=== PATIENT | female | born 1975 | race Caucasian/White ===

== ENCOUNTER → 2017-06-14 | Emergency (ER) | payer OTHER ==
[~2017-06-14] VITALS: Ht 152.4 cm; Wt 173.7 kg
[~2017-06-14] MED LIST: ACID REDUCER75 MG PO; ADIPEX-P37.5 MG PO; ALPRAZOLAM ER1 MG PO; ANAPROX DS550 MG PO; ARMOUR THYROID30 MG PO; ASPIR 8181 MG PO; BACTRIM DS TAB1 EACH PO; BELVIQ10 MG PO; CEFUROXIME500 MG PO; CEPACOL SORE T1 EAC5 MM; CEPHALEXIN500 MG PO; CIPRO500 MG PO; CITRACAL + BON1 EACH PO; CLARITIN-D 241 EACH PO; CLINDAMYCIN HC300 MG PO; COUMADIN10 MG PO; DIGOXIN125 MCG PO; DIGOXIN250 MCG PO; DOXYCYCLINE HY100 MG PO; DOXYCYCLINE MO100 MG PO; FENTANYL1 EACH TD; FERROUS SULFAT325 MG PO; FLAGYL500 MG PO; FLEXERIL10 MG PO; FLUOXETINE HCL20 MG PO; HUMULIN 70100 UNIT/1 SQ; HYDROCODON-ACE1 EAC8 PO; IBUPROFEN600 MG PO; IRON325 M1 PO; KEFLEX500 MG PO; KLOR-CON M2020 MEQ PO; LEVAQUIN500 MG PO; LEVAQUIN750 MG PO; LEVEMIR100 UNIT/1 SUB-Q; LOMOTIL TABLET1 EACH PO; LORTAB 7.5-3251 EACH PO; LOVENOX100 MG SUB-Q; MAG-OXIDE400 MG PO; MAGNESIUM400 MG PO; MAGNESIUM500 MG PO; MEDROL4 M1 PO; MELOXICAM15 MG PO; METFORMIN HCL1000 MG PO; METOLAZONE2.5 MG PO; METOPROLOL SUCC50 MG PO; MS CONTIN15 MG PO; NEURONTIN300 MG PO; NEXPLANON68 MG SUB-Q; NORCO 5-325 TA1 EACH PO; NOVOLOG100 UNITS/ SUB-Q; NYSTOP60 GM TOP; OLANZAPINE15 MG PO; OXYCODONE HCL10 MG PO; OXYCODONE-ACET1 EAC3 PO; PIROXICAM20 MG PO; POTASSIUM CHLO10 MEQ PO; POTASSIUM CHLO20 ME1 PO; POTASSIUM99 M1 PO; POTASSIUM99 MG PO; PROBIOTIC1 EAC1 PO; PROMETHAZINE HC25 M1 PO; PROZAC40 MG PO; RANITIDINE HCL150 MG PO; RELPAX20 MG PO; ROBAFEN-DM SYR118 ML PO; SENNA S TABLET1 EA PO; SEPTRA DS TABL1 EACH PO; SPIRONOLACTONE50 MG PO; STOOL SOFTENER50 MG PO; SUDAFED 12 HOU120 MG PO; TOPAMAX200 MG PO; TORSEMIDE100 MG PO; TORSEMIDE20 MG PO; TRAZODONE HCL150 MG PO; TRESIBA FL100 UNIT/1 SQ; VIT B COMPLEX; VITAMIN C500 M1 PO; VITAMIN D250000 UNIT PO; WARFARIN SODIUM5 MG PO; WARFARIN SODIUM6 MG PO; XANAX XR1 MG PO; XANAX1 MG PO; ZANTAC150 MG PO; ZOFRAN ODT4 MG PO; ZOFRAN ODT8 MG PO; ZYPREXA15 MG PO; ZYPREXA20 MG PO; ZYRTEC10 MG PO; [UNRECOGNIZED DRUG - OTHER] PO; [UNRECOGNIZED DRUG - REMARK] PO
== END ==
LOC: ED 19:31
DX: K46.9 Unspecified abdominal hernia without obstruction or gangrene (principal); G89.29 Other chronic pain; E11.9 Type 2 diabetes mellitus without complications; Z86.73 Personal history of transient ischemic attack (TIA), and cerebral infarction without residual deficits; Z90.49 Acquired absence of other specified parts of digestive tract; Z87.440 Personal history of urinary (tract) infections; Z88.0 Allergy status to penicillin; Z88.1 Allergy status to other antibiotic agents; Z79.4 Long term (current) use of insulin; Z79.82 Long term (current) use of aspirin
CPT/HCPCS: 74177; 80053; 83690; 84703; 85025; 96374; 96375; 99284; J1170; J1885; J2405; J7030; Q9967

== ENCOUNTER 2017-11-23 21:13 | Emergency (ER) | payer OTHER ==
[~2017-11-23] VITALS: Ht 152.4 cm; Wt 178.7 kg
[2017-11-23] MEDS ORDERED: ATENOLOL50 MG PO (21:35)
--- OUTSIDE RECORDS SUMMARY | 2017-11-23 23:14 | XMS | Encounter Summary ---
Demographics + + + | Address | [address] | | | [place] [address] | + + + | Home Phone | | + + + | Preferred Language | Unknown | + + + | Marital Status | Single | + + + | Caodaism Affiliation | PRO | + + + | Race | White | + + + | Ethnic Group | Not or | + + + Author + + + | Author | [facility] | + + + | Organization | [facility] | + + + | Address | Unknown | + + + | Phone | Unavailable | + + + Support + + + + + | Name | Relationship | Address | Phone | + + + + + | KENNY BERRY | ECON | [address] | | | | | [place], | | | | | [place] [address] | | + + + + + | Ellie Vang | ECON | Unknown | | + + + + + Care Team Providers + +------+ + | Care Manager Management Name | Role | Phone | + +------+ + PCP | Unavailable | + +------+ + Encounter Details +--------+ + + + + | Date | Type | Department | Care Team | Description | +--------+ + + + + | 12/07/ | Procedure | [facility] | | | | 2018 | Pass | [facility] | | | | | | Admitting Desk | | | | | | Located on the 9 | | | | | | floor [address] [facility] | | | | | | [facility] | | | | | | [place], [place] | | | | | | [address] | | | +--------+ + + + + Social History + +-------+ +--------+------+ | Tobacco Use | Types | Packs/Day | Years | Date | | | | | Used | | + +-------+ +--------+------+ | Former Smoker | | | | | + +-------+ +--------+------+ + +---+---+---+ | Smokeless Tobacco: | | | | | Never Used | | | | + +---+---+---+ + + +---------+ + | Alcohol Use | Drinks/We | oz/Week | Comments | | | ek | | | + + +---------+ + | No | | 0.0 | | + + +---------+ + + + + | Sex Assigned at | Date Recorded | | | | + + + | Not on file | | + + + as of this encounter Plan of Treatment +--------+ + + + + | Date | Type | Specialty | Care Team | Description | +--------+ + + + + | 12/07/ | Procedure | Surgery | | | | 2018 | Pass | | | | +--------+ + + + + | 06/04/ | Office | Cardiology | Randell Franks, | | | 2018 | Visit | | [address] | | | | | | [address] | | | | | | [place], [place] | | | | | | [address] | | | | | | [phone] | | | | | | | | +--------+ + + + + as of this encounter Visit Diagnoses Not on filein this encounter"
--- OUTSIDE RECORDS SUMMARY | 2017-11-23 23:14 | XMS | Encounter Summary ---
Demographics + + + | Address | [address] | | | [place] [address] | + + + | Home Phone | | + + + | Preferred Language | Unknown | + + + | Marital Status | Single | + + + | Islam Affiliation | PRO | + + + | Race | White | + + + | Ethnic Group | Not or | + + + Author + + + | Author | [facility] | + + + | Organization | [facility] | + + + | Address | Unknown | + + + | Phone | Unavailable | + + + Support + + + + + | Name | Relationship | Address | Phone | + + + + + | KENNY BERRY | ECON | [address] | | | | | [place], | | | | | [place] [address] | | + + + + + | Ellie Vang | ECON | Unknown | | + + + + + Care Team Providers + +------+ + | Care Grey Washer Name | Role | Phone | + +------+ + | Fadi Goodrich DO | PCP | | + +------+ + Encounter Details +--------+------+ + + + | Date | Type | Department | Care Team | Description | +--------+------+ + + + | 11/20/ | Lab | Laboratory at [facility] | | Morbid obesity with | | 2017 | | 3rd Floor [address] | | BMI of 70 and over, | | | | [address] [place], | | adult ([facility]); | | | | [place] [address] | | 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[phone] | | 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 ([facility]); | | | | | | Type 2 diabetes | | | | | | mellitus without | | | | | | complication, with | | | | | | long-term current | | | | | | use of insulin ([facility]) | +--------+------+ + + + Social History + +-------+ [...] | | | | | | [address] | | | | | | [place], [place] | | | | | | [address] | | | | | | [phone] | | | | | | | | +--------+ + + + + + +--------+ + + | Name | Priori | Associated Diagnoses | Date/Time | | | ty | | | + +--------+ + + | VITAMIN B1, WHOLE BLOOD | Routin | Morbid obesity | 11/20/2017 10:01 AM | | | e | with BMI of 70 and | PDT | | | | over, adult (HCC) | | | | | 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| 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) | | + +--------+ + + as of this encounter Results CBC (HEMOGRAM) ONLY (11/20/2017 10:01 AM) + + + + | Component | Value | Ref Range | + + + + | WHITE CELL COUNT | 13.84 (H) | 3.50 - 10.80 K/cu mm | + + + + | RED CELL COUNT | 4.91 | 4.00 - 5.20 M/cu mm | + + + + | HEMOGLOBIN | 13.2 | 12.0 - 16.0 g/dL | + + + + | HEMATOCRIT | 42.1 | 36.0 - 46.0 % | + + + + | MCV | 85.7 | 80.0 - 96.0 fL | + + + + | MCHC | 31.4 | 33.0 - 35.5 g/dL | + + + + | RDW SD | 50.8 (H) | 35.1 - 46.3 fL | + + + + | PLATELET COUNT | 242 | 150 - 400 K/cu mm | + + + + | MPV | 9.8 | 9.7 - 12.3 fL | + + + + + + + | Specimen | Performing Laboratory | + + + | Blood | [facility], [facility] [address] | | | [place] [address] | + + + LIPID LAB - LIPID PROFILE - PLASMA LIPIDS, HDL AND LDL (11/20/2017 10:01 AM) + +---------+ + | Component | Value | Ref Range | + +---------+ + | TOTAL CHOLESTEROL - | 143 | <200 mg/dl | | LIPID LAB | | | + +---------+ + | VLDL CHOLESTEROL, | 37 (H) | <=31 mg/dl | | CALCULATED - LIPID | | | | LAB | | | + +---------+ + | LDL, CHOLESTEROL - | 68 | <100 mg/dl | | LIPID LAB | | | + +---------+ + | HDL, CHOLESTEROL - | 38 (L) | >50 mg/dl | | LIPID LAB | | | + +---------+ + | TOTAL TRIGLYCERIDE - | 184 (H) | <150 mg/dl | | LIPID LAB | | | + +---------+ + | NON-HDL CHOLESTEROL | 105 | <=130 mg/dL | | (LIPID LAB) | | | + +---------+ + + + + | Specimen | Performing Laboratory | + + + | Blood | [facility], LIPID [id number] [facility] | | | [place] [address] | + + + HEMOGLOBIN A1C, BLOOD (11/20/2017 10:01 AM) + + + + | Component | Value | Ref Range | + + + + | HEMOGLOBIN A1C | 7.7 (H)Comment: Hgb A1C Interpretive | <5.7 % | | | Information: <5.7% - Normal | | | | 5.7-6.4% - Consistent with | | | | pre-diabetes >6.4% - Consistent | | | | with diabetes | | | | 5.7-6.4% - Consistent with pre-diabetes | | | | >6.4% - Consistent with diabetes | | | | | | | | | | + + + + + + + | Specimen | Performing Laboratory | + + + | Blood | [facility], [facility] + [facility] [address] [facility] | | | [place] [address] | + + + + + | Narrative | + + | Alternate forms of testing such as fructosamine should be considered for | | monitoring remote computer terminal operator glycemic control in patients with: Increased red cell turnover, | | certain hemoglobinopathies (e.g., HbS, HbE, HbC and thalassemia syndromes), anemias, | | blood loss, chronic liver disease and hemochromatosis (artefactually low HbA1c); iron | | deficiency anemia (artefactually high HbA1c due to enhanced glycation of hemoglobin). | | | + + COMPLETE METABOLIC SET (NA,K,CL,CO2,BUN,CREAT,GLUC,CA,AST,ALT,BILI TOTAL,ALK PHOS,ALB,PROT TOTAL) (11/20/2017 10:01 AM) + +---------+ + | Component | Value | Ref Range | + +---------+ + | GLUCOSE, PLASMA | 144 (H) | 70 - 99 mg/dL | | (LAB) | | | + +---------+ + | BUN, PLASMA (LAB) | 13 | 6 - 20 mg/dL | + +---------+ + | CREATININE PLASMA | 0.92 | 0.60 - 1.10 mg/dL | | (LAB) | | | + +---------+ + | EGFR - | >60 | >60 mL/min | | PALESTINIAN | | | + +---------+ + | EGFR NON | >60 | >60 mL/min | | -PALESTINIAN | | | + +---------+ + | SODIUM, PLASMA (LAB) | 138 | 136 - 145 mmol/L | + +---------+ + | POTASSIUM, PLASMA | 4.2 | 3.4 - 5.0 mmol/L | | (LAB) | | | + +---------+ + | CHLORIDE, PLASMA | 108 | 97 - 108 mmol/L | | (LAB) | | | + +---------+ + | TOTAL CO2, PLASMA | 20 (L) | 21 - 32 mmol/L | | (LAB) | | | + +---------+ + | CALCIUM, PLASMA | 9.4 | 8.6 - 10.2 mg/dL | | (LAB) | | | + +---------+ + | CALCIUM(ALB | 10.1 | 8.6 - 10.2 mg/dL | | CORRECTED) | | | + +---------+ + | BILIRUBIN TOTAL | 0.4 | 0.3 - 1.2 mg/dL | + +---------+ + | TOTAL PROTEIN, | 8.1 | 6.4 - 8.2 g/dL | | PLASMA (LAB) | | | + +---------+ + | ALBUMIN, PLASMA | 3.1 (L) | 3.5 - 4.7 g/dL | | (LAB) | | | + +---------+ + | ALK PHOS | 122 (H) | 42 - 98 U/L | + +---------+ + | AST(SGOT) | 21 | <=41 U/L | + +---------+ + | ALT (SGPT) | 29 | <=60 U/L | + +---------+ + | ANION GAP | 10 | 4 - 11 mmol/L | + +---------+ + | ANION GAP(ALB | 12 (H) | 4 - 11 mmol/L | | CORRECTED) | | | + +---------+ + | POTASSIUM CMNT | No Hemo | | + +---------+ + | BILI T CMNT | No Hemo | | + +---------+ + | AST CMNT | No Hemo | | + +---------+ + + + + | Specimen | Performing Laboratory | + + + | Blood | [facility] [address] | | | [place] [address] | + + + + + | Narrative | + + | GFR is estimated using the MDRD equation recommended by the National Kidney Disease | | Education Program. Estimated GFR Interpretive Information: <60 mL/min/1.73 sq | | m Chronic Kidney Disease <15 mL/min/1.73 sq | | m Kidney Failure Estimated GFR greater that 60 mL/min/1.73 | | sq m is of limited clinical value. The MDRD equation is not valid in the following | | situations: - Patients under 18 years of age - Severe malnutrition or obesity - | | Vegetarian diet - Rapidly changing kidney function - Amputees, paraplegics, or other | | muscle-wasting diseses | + + CBC ONLY (11/20/2017 10:01 AM) + + + | Specimen | Performing Laboratory | + + + | Blood | | + + + + + | Narrative | + + | The following orders were created for panel order CBC ONLY. | | Procedure | | Abnormality Status | | --------- | | ------ CBC (HEMOGRAM) | | ONLY[[id number]] Abnormal Final | | result Please view results for these tests on the | | individual orders. | + + IRON AND TIBC (11/20/2017 10:01 AM) + +--------+ + | Component | Value | Ref Range | + +--------+ + | IRON | 46 | 30 - 160 ug/dL | + +--------+ + | IRON BIND CAP | 334 | 240 - 450 ug/dL | + +--------+ + | % SATURATION | 14 (L) | 20 - 50 % | | TRANSFERRIN, | | | + +--------+ + + + + | Specimen | Performing Laboratory | + + + | Blood | [facility], [place] [address] [place] [address] RD | | | [place] [address] | + + + VITAMIN B-12 (11/20/2017 10:01 AM) + +-------+ + | Component | Value | Ref Range | + +-------+ + | VITAMIN B12 | 686 | 193 - 986 pg/mL | + +-------+ + | COMMENT (HEMO) | 4 | | + +-------+ + | COMMENT (ICTERUS) | 1 | | + +-------+ + | COMMENT (LIPEMIA) | 1 | | + +-------+ + + + + | Specimen | Performing Laboratory | + + + | Blood | [facility], [place] [address] | | | [place] [address] | + + + FERRITIN (11/20/2017 10:01 AM) + + + + | Component | Value | Ref Range | + + + + | FERRITIN | 23 (L)Comment: Male and Female >18 years: | 50 - 200 ng/mL | | | <20 ng/mL: Consistant with | | | | iron deficiency 21-50 ng/mL: | | | | Possible iron deficiency 51-99 | | | | ng/mL: Iron deficiency unlikely | | | | unless inflammation present | | | | or p | | | | atient >65 years of age 100-200 | | | | ng/mL: Normal, not consistent with | | | | iron deficiency >200 ng/mL: | | | | If transferrin saturation >45%, consider | | | | hemochromatosis | | + + + + + + + | Specimen | Performing Laboratory | + + + | Blood | [facility], [place] [address] [place] [address] | | | [place] [address] | + + + PTH, SERUM (11/20/2017 10:01 AM) + +-------+ + | Component | Value | Ref Range | + +-------+ + | PTH, SERUM | 88 | 18 - 88 pg/mL | + +-------+ + + + + | Specimen | Performing Laboratory | + + + | Blood | [facility], [place] [address] [facility] [address] | | | [place] [address] | + + + + + | Narrative | + + | New Reference Range effective 17. | + + VITAMIN D, 25-HYDROXY, SERUM (11/20/2017 10:01 AM) + +-------+ + | Component | Value | Ref Range | + +-------+ + | VITAMIN D 25 HYDROXY | 75.2 | 30 - 80 ng/mL | + +-------+ + + + + | Specimen | Performing Laboratory | + + + | Blood | [facility], [place] [address] [place] [address] | | | [place] [address] | + + + + + | Narrative | + + | Reference Interval: 0-18years: Deficiency: <20 ng/mL | | Optimum level: >or=20 | | ng/mL >18years: | | Deficiency: <20 ng/mL | | Insufficiency: 20-29 ng/mL Optimum Level: 30-80 ng/mL | | High: 81-150 ng/ml | | Toxic: >150 ng/mL | + + in this encounter Visit Diagnoses + + | Diagnosis | + + | Morbid obesity with BMI of 70 and over, adult (HCC) | + + | Diabetes mellitus type 2 without retinopathy (HCC) | + + | Type II or unspecified type diabetes mellitus without mention of complication, not | | stated as uncontrolled | + + | Type 2 diabetes mellitus without complication, with long-term current use of insulin | | (HCC) | + +"
--- OUTSIDE RECORDS SUMMARY | 2017-11-23 23:14 | XMS | Encounter Summary ---
Demographics + + + | Address | [address] | | | [place] [address] | + + + | Home Phone | | + + + | Preferred Language | Unknown | + + + | Marital Status | Single | + + + | Baptism Affiliation | PRO | + + + | Race | White | + + + | Ethnic Group | Not or | + + + Author + + + | Author | [facility] | + + + | Organization | [facility] | + + + | Address | Unknown | + + + | Phone | Unavailable | + + + Support + + + + + | Name | Relationship | Address | Phone | + + + + + | KENNY BERRY | ECON | [address] | | | | | [place], | | | | | [place] [address] | | + + + + + | Ellie Vang | ECON | Unknown | | + + + + + Care Team Providers + +------+ + | Care Manager Billing Name | Role | Phone | + +------+ + | Fadi Goodrich DO | PCP | | + +------+ + Reason for Referral Consult to [place] (Routine) +--------+--------+ + + + + | Status | Reason | Specialty | Diagnoses / | Referred By | Referred To | | | | | Procedures | Contact | Contact | +--------+--------+ + + + + | Open | | Surgery | Diagnoses | Dannie | Dannie, | | | | | Morbid | Ion Colvin MD | Ion Colvin MD | | | | | obesity with | [address] | | | | | BMI of [address] | [address] | Ave | | | | | and over, | [place], [place] | [facility] [place] | | | | | adult (HCC) | [address] | [address] | | | | | Diabetes | Phone: | Phone: | | | | | mellitus | | | | | | | type 2 | Fax: | Fax: | | | | | without | [phone] | [phone] | | |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 | | | | | | | (HCC) AMARA | | | | | | | treated with | | | | | | | BiPAP PCOS | | | | | | | (polycystic | | | | | | | ovarian | | | | | | | syndrome) | | | | | | | Procedures | | | | | | | SURGICAL | | | | | | | CASE REQUEST | | | +--------+--------+ + + + + Reason for Visit + + + | Reason | Comments | + + + | New patient | | | consultation | | + + + Office Visit - E/M Services (Routine) + + + + + + + | Status | Reason | Specialty | Diagnoses / | Referred By | Referred To | | | | | Procedures | Contact | Contact | + + + + + + + | Authorized | BAR: | Surgery | Diagnoses | Tiny | Bar | | | Scheduled | | Essential | MD Rnadell | Bariatric | | | with OPTICAL GLASS INSPECTOR | | hypertension | [address] | [address]urg Ch | | | | | Right | Herminio Ryan | [address] | | | | | heart | [address] | Ave | | | | | failure | [place], [place] | Mailcode: | | | | | Type 2 | [address] | [address] | | | | | diabetes | Phone: | for Health | | | | | mellitus | [phone] | and Healing, | | | | | without | Fax: | 6th floor | | | | | complication | [phone] | [place], [place] | | | | | , with | | [address] | | | | | long-term | | Phone: | | | | | current use | | [phone] | | | | | of insulin | | Fax: | | | | | ([facility]) | | [phone] | | | | | Procedures | | | | | | | CONSULT TO | | | | | | | BARIATRIC | | | | | | | SURGERY | | | + + + + + + + Encounter Details +--------+---------+ + + + | Date | Type | Department | Care Team | Description | +--------+---------+ + + + | 10/30/ | Office | Digestive Health | Ion Castanon, | 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 | Visit | Center at [facility] 6th | MD [address] | BMI of 70 and over, | | | | Floor [address] | [place], [place] | adult ([facility]) (Primary | | | | Ave Mailcode: [facility] | [address] | Dx); Diabetes | | | | [facility] | | mellitus type 2 | | | | and Healing, 6th | | without retinopathy | | | | floor [place], [place] | | ([facility]); | | | | [address] | | Intertriginous | | | | | | candidiasis; PCOS | | | | | | (polycystic ovarian | | | | | | syndrome); AMARA | | | | | | treated with BiPAP; | | | | | | Chronic diastolic | | | | | | heart failure ([facility]); | | | | | | Essential | | | | | | hypertension | +--------+---------+ + + + Social History + +-------+ [...] + + + as of this encounter Last Filed Vital Signs + + + + | Vital Sign | Reading | Time Taken | + + + + | Blood Pressure | 150/90 | 10/30/2017 10:15 AM PDT | + + + + | Pulse | 80 | 10/30/2017 10:15 AM PDT | + + + + | Temperature | 36.6 C (97.9 F) | 10/30/2017 10:15 AM PDT | + + + + | Respiratory Rate | 16 | 10/30/2017 10:15 AM PDT | + + + + | Oxygen Saturation | - | - | + + + + | Inhaled Oxygen | - | - | | Concentration | | | + + + + | Weight | 178.9 kg (394 lb 6.4 | 10/30/2017 10:15 AM PDT | | | oz) | | + + + + | Height | 149.9 cm (4' 11") | 10/30/2017 10:15 AM PDT | + + + + | Body Mass Index | 79.66 | 10/30/2017 10:15 AM PDT | + + + + in this encounter Instructions Patient Instructions - Ion Castanon MD - 10/30/2017 10:00 AM PDTPlease visit with our Raza heard Apprentice Embalmer (RD) for instructions about your Bariatric diet, assistance with calorie counts, tips and tricks for working with your diet restrictions, and recipes after bariatri c surgery. Daily yogurt; even just 1 tablespoon twice a day will provide enough probiotics to optimize digestion. Try to use a high-quality, probiotic-dense yogurt (eg Zaria's, Leonides, Stacie hendricksclaus Kefir, Foreign Banknote Teller Trader Duke's Mosotho Yogurt). Remember to chew your food well, eat small bites, and work on eating slowly. Avoid drinkin g fluid within 20 min before or after meals. Try to exercise at least 30 min four times each week. Try to add some strength training a nd resistance work, in addition to cardio exercise. Water exercises can be very useful if y ou have joint pain/back pain or other limitations. Check with your local gyms and [employer] /community centers for classes. Our psychologist is available to see you after surgery, if you are feeling stressors or nee d emotional support. Please let us know if you'd like to see them. We have monthly support groups and an online facebook support group. We encourage particip ation in a support group as this does encourage healthy habits and reinforces all of the thi ngs your learned in your classes and during appointments with our RD. Smoking: We strongly discourage nicotine use after surgery. Nicotine reduces oxygen to the healing stomach. There are also 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 truck driver complications of poor wound healing and gastric u lcers. These ulcers are started by smoking or using other nicotine products (vapor cigarett es etc). Gastric bypass patients should also avoid NSAIDS(ibuprofen, advil, motrin, naprosyn/naproxe n/aleve) to prevent gastric/marginal ulcers. Control (FOR FEMALES OF REPRODUCTIVE AGE): Bariatric surgery can markedly improve in fertility, or make you more fertile. For the first 18 months after bariatric surgery, we re commend good control as rapid weight loss puts you at very high risk for miscarriage. We DO NOT recommend until you are at least 18month after surgery. Be proactive in your healthcare. Followup with your PCP. Get your regular screening exams such as mammograms, colonoscopies etc. Know your insurance and your insurance benefits, an d if they are ever unclear, call your insurance company for clarification (look on the back of your insurance card for the contact phone number). in this encounter Progress Notes Ion Castanon MD - 10/30/2017 10:00 AM PDTFormatting of this note may be different from the original. BARIATRIC SURGERY PREOP EXAM & RISK ASSESSMENT DATE OF VISIT: 10/30/17 PROPOSED DATE OF ADMISSION: TBD PROPOSED PROCEDURE: Laparoscopic gastric bypass HISTORY: Elzbieta Cristina is a 42 y.o. female who has failed prior attempts at sustained di etary/medical weight loss and desires surgical weight loss in order to "i want to be healthy and fix my health problems. I want to be there for my daughter and grandbabies." Started wt struggles around 20yo- bad ankle fracture- off feet. Has as symptomatic recurrent incisional hernia (repaired x 2 in past) Able to climb 1 flight of stairs with holding handrail, and can walk from car to elevators in parking lot without stopping She has lost 100lbs with medications and diet changes. She work with our CHF team and they have optimized her HFpEF and Dr. Franks and Olga Lidia Chahal have optimized medical wt los s. Past Medical History: Diagnosis Date Abdominal pain Abnormal ThinPrep Pap test of vagina Allergic rhinitis Anemia Anxiety Bipolar disorder (HCC) Chronic wound infection of abdomen from 2010 Cough Depression Diverticulitis of colon Dizziness Glaucoma Heart burn Hemorrhoids Hernia of abdominal wall Incisional hernia, incarcerated 2012 Insomnia Irregular periods Kidney stone Leaking of urine Leg sore Lymphedema Morbid obesity with body mass index of 70 and over in adult (HCC) Myalgia and myositis Nausea Neck pain Numbness Osteoarthritis of knee Palpitations Pneumonia Shortness of breath Staphylococcal infection Stroke (HCC) TIA (transient ischemic attack) due to Bromocriptine Tinea corporis UTI (urinary tract infection) Past Surgical History Procedure Laterality Date Tonsillectomy and adenoidectomy Appendectomy, open 2010 Umbilical hernia repair 2010 Treatment of ankle fracture with screws remaining Incision and drainage of wound abscess x2 midline transverse wound s/p open appendectomy 2010 Ventral hernia repair 10/2012 Dr. Andie Brian Incisional hernia repair 03/01/[address] [facility]/ Dr. Cantu. Primary fascial closure and scar excision Current Outpatient Prescriptions Medication Sig ALPRAZolam 1 mg oral tablet Take 1 mg by mouth three times daily as needed for anxiety. ascorbic acid (VITAMIN C) 500 mg Oral tablet Take 500 mg by mouth once daily. aspirin EC 81 mg oral tablet,delayed release (DR/EC) Take 81 mg by mouth once daily. atenolol 25 mg oral tablet Take 1 tablet by mouth once daily CALCIUM [id number]-[id number]-GAM95-GENIS ORAL Take 2 tablets by mouth two times daily. ergocalciferol (VITAMIN D2) 50,000 unit oral capsule Take 50,000 Units by mouth twice w (on Thursday and ). fentaNYL 25 mcg/hr transdermal patch 72 hour 1 patch every seventy-two hours. FLUoxetine 20 mg oral tablet Take 60 mg by mouth once daily at bedtime. gabapentin 300 mg oral capsule Take 300 mg by mouth four times daily. magnesium oxide 400 mg oral tablet Take 400 mg by mouth once daily. metFORMIN 1,000 mg Oral tablet Take 1,000 mg by mouth two times daily. NOVOLIN N 100 unit/mL subcutaneous suspension Inject under the skin (SUBC) three times daily with meals. OLANZapine 15 mg oral tablet Take 30 mg by mouth once daily at bedtime. oxyCODONE (immediate release) 5 mg oral tablet Take 1 tablet by mouth every three hours as needed (Pain). Indications: Pain phentermine 37.5 mg oral tablet Take 1 tablet by mouth once daily in the morning Admini ster before breakfast. potassium chloride SR 20 mEq oral tablet,ER particles/crystals Take 2 tablets by mouth two times daily. (Patient taking differently: Take 60 mEq by mouth four times daily. ) ranitidine 150 mg oral tablet Take 150 mg by mouth once daily as needed. Indications: H EARTBURN sodium fluoride 1.1 % dental cream Place onto the teeth. Use to brush teeth 2 to 3 mitesh es daily as directed. Do not eat drink or rinse mouth immediately following use. Do not swal low thyroid (ARMOUR THYROID) 30 mg oral tablet tab Take 30 mg by mouth once daily. topiramate 200 mg oral tablet Take 50 mg by mouth two times daily. Indications: Migrain e Prevention torsemide 100 mg oral tablet Take 100 mg by mouth two times daily. traZODone 150 mg Oral tablet Take 150 mg by mouth once daily at bedtime. TRESIBA FLEXTOUCH U-100 100 unit/mL (3 mL) subcutaneous insulin pen Inject 67 Units und er the skin (SUBC) once daily at bedtime. No current facility-administered medications for this visit. Allergies Allergen Reactions Amoxicillin Benadrilina [Diphenhydramine Hcl] Hives Parlodel [Bromocriptine] Unknown Blood clots Penicillin Hives Family History Problem Relation Heart Attack Father Diabetes Mother Alcohol/Drug Other Alcoholism in mother & father Hypertension Other M&F Asthma Other Father, brother, daughters Lung Disease Other Father Obesity Other M&F&Sister Diabetes Other Mother Arthritis Other M&F Autoimmune Disease Sister lupus Social History Narrative Updated 11/09/15 She lives in [place] with her mother and her sister (also her caregiver) lives in an artment/duplex below. She has 2 grandchildren (age 4 and 7) who live with her daughter and son-in-law Her boyfriend lives in [place] HFpEF, DM2, HTN, Sleep Apnea (unable to tolerate CPAP), Hypothyroidism, Severe Obesity (L ifetime max weight 495 lbs) Last seen by Dr Franks on 06/12/2017 with the following notes: "Assessment: 1) HFpEF: This is currently being managed well by her primary care doctor with diuretics and maintenance of her massive weight loss. Further weight loss following a bariatric proce dure would improve this even more. 2) T2 Diabetes: Her A1c had been doing much better now. Will continue present management . 3) Morbid obesity: She has reached maximal medical weight loss 115 pounds from her baseli ne weight. I will speak with the bariatric surgery program here and refer her to our it technical specialist who also has expertise in physical activity for evaluation and re commendations regarding activity management prior to bariatric surgery. 4) Hypothyroidism: TSH stable, will continue to monitor yearly. Plan: 1) Continue healthy diet and activity as tolerated 2) Continue management of her heart failure by her PCP 3) referral to [facility] Harman regarding physical activity 4) discussed with bariatric surgery team regarding keeping her on track for g astric bypass operation 5) Continue phentermine 37.5 mg a day 6) Follow-up 4-6 months" She has appointment with our dietitian, Olga Lidia Montanez RD on 09/11/2017 She has follow up with Dr Franks on 11/20/2017 Echocardiogram 11/07/2015 - Final Impressions: 1. The interpretation of images is limited by poor acoustic windows. 2. The left ventricular cavity size is normal. 3. The LV ejection fraction is normal. 4. The right ventricular size is moderately enlarged. 5. Moderately reduced RV systolic function. 6. There are no prior exams available for comparison REVIEW OF SYSTEMS: All 14 systems reviewed and negative except as noted above. PHYSICAL EXAMINATION: BP 150/90 | Pulse 80 | Temp (Src) 36.6 C (97.9 F) (Oral) | RR 16 | Ht 1.499 m (4' 11") | Wt 178.9 kg (394 lb 6.4 oz) | BMI 79.66 kg/(m^2) GENERAL: Well nourished, well developed and in no apparent distress, alert and active. HEENT: Grossly within normal limits. NECK: Supple, full range of motion. SKIN: No visible rashes. CHEST: Respirations even and unlabored. CARDIAC: Extremities warm and well perfused. ABDOMEN: Soft, nontender, nondistended, no mass, no hepatosplenomegaly. Incisional hernia i n upper midline with bulge but reducible and at umbilicus which is pulled very inferior GROINS/: Deferred. EXTREMITIES: No edema, normal range of motion. NEUROLOGIC: Moves all extremities spontaneously. No apparent neurologic deficits. Cranial nerves 2-12 grossly intact. Gait symmetric and age appropriate. ASSESSMENT:: A(n) 42 y.o. female who meets and or exceeds NIH criteria for super morbid obe sity and comorbidities related to obesity including OA of knees which may be improved with b ariatric surgery. PLAN: Laparoscopic gastric bypass DISCUSSION: A full PARQ session was held. We had a lengthy discussion regarding laparoscopi c gastric bypass verses sleeve gastrectomy. The risks of both procedures were discussed and include but are not limited to , myocardial infarction, stroke, bleeding, infection, an astomotic leak, anastomotic stricture, gastric conduit torsion, gastric conduit stenosis, de velopment or worsening of gastroesophageal reflux disease, DVT/PE, injury to bowel or other structures upon entering the abdomen, conversion to an open procedure, internal hernia, inci sional hernia especially if converted to an open procedure, bowel obstruction, chronic nause a, and chronic nutritional/vitamin deficiencies despite supplementation. In addition, the ri sk of poor or no weight loss was discussed. The patient s expected weight loss of approxim ately 50-60% of excess body weight for sleeve gastrectomy and 50-70% for gastric bypass was calculated for this patient s height and current weight, along with the fact that there is a wide range of weight loss results after bariatric surgery. Rare patients do not lose much weight at all after bariatric surgery, and this variability is thought to be due to genetic differences among patients that are not yet fully understood. I quoted an approximate overa ll 7-8% risk of all katey-operative complications in the katey-operative period, a 1-5% risk o f serious katey-operative complications, a 4-5% rate of reoperation over the 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 truck driver (i.e. years), as well as other late complications that may or may not require operation or other i ntervention. I stressed that all complication rates and outcomes were estimates only. The dawood uribe appeared to understand, was given an opportunity to ask questions, and agrees to proce ed. Elzbieta is willing to comply with postoperative care and be compliant with followup appointme nts and programmatic recommendations for diet and exercise, as well as counseling/emotional support long-term. We discussed that sleeve gastrectomy does not treat GERD and can, in fact,worsen heartburn/ GERD. She has no GERD since her weight loss. She understands that if unable to complete byp ass due to adhesions/hernia, we will first do sleeve gastrectomy and then plan staged conver gilbert to bypass if more weight loss is needed. We discussed increased fertility after wt loss surgery and need for control. We discussed possible complications, and if any occur, they may need longer hospitalization and additional procedures. - she will need 2wks lovenox prophylaxis after surgery - She is very high risk given extreme obesity but is now walking and able to climb stairs We discussed the specific complications as outlined above, specifically addressing the fact that leak rates may be higher for sleeve gastrectomy than gastric bypass, and may approach 5%. We reviewed the [facility] consent form. We discussed that we did not cover all possible risks and outcomes, but that I have provided the patient with a summary of the most common and im portant risks. We discussed the possibility of blood transfusion or liver biopsy with attend ant risks, the need for sedation and anesthesia with attendant risks that would be reviewed in detail with the anesthesiologists, the possibility that observers may be present and phot ographs may be taken in the operating room for teaching purposes, and that all of observers and photographs will be compliant with HIPPA. We discussed the fact that fellows and residen ts would be involved in intra-operative and post-operative care but that I will be the prima ry surgeon, present for the entire procedure, and manage and supervise all care delivered. Charlene patterson discussed the fact that if we encounter anything unexpected in the operating room (for exa mple cirrhosis or tumors) that I would adjust the operative plan accordingly based on my bes t judgment. The patient appeared to understand, was given an opportunity to ask questions, a nd agrees to proceed. I spent 41 minutes with the patient and >50% of this time was spent counseling the patient about surgery and surgical risks/expectations. Electronically signed on 10/30/2017 at 10:34 AM ION CASTANON MD. in this encounter Plan of Treatment +--------+ + + + + | Date | Type | Specialty | Care Team | Description | +--------+ + + + + | 12/07/ | Procedure | Surgery | | | | 2017 | Pass | | | | +--------+ + + + + | 06/04/ | Office | Cardiology | Randell Franks, | | | 2017 | Visit | | [address] | | | | | | [address] | | | | | | [place], [place] | | | | | | [address] | | | | | | [phone] | | | | | | | [...] PDT | | | | over, adult ([facility]) | | | | | 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| 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) | | + +--------+ + + + +--------+ + + | Name | Priori | Associated Diagnoses | Order Schedule | | | ty | | | + +--------+ + + | TYPE AND SCREEN | Routin | Morbid obesity | Ordered: 10/30/2017 | | | e | with BMI of 70 and | | | | | over, adult ([facility]) | | | | | 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| 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) | | | | | AMARA treated with | | | | | BiPAP Chronic | | | | | diastolic heart | | | | | failure ([facility]) | | | | | Essential | | | | | hypertension | | + +--------+ + + | VITAMIN B1, WHOLE BLOOD | Routin | Morbid obesity | Expected: 11/03/2017 | | | e | with BMI of 70 and | (Approximate), | | | | over, adult (HCC) | Expires: 12/03/2018 | | | | 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| 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) | | + +--------+ + + as of this encounter Results COMPLETE METABOLIC SET (NA,K,CL,CO2,BUN,CREAT,GLUC,CA,AST,ALT,BILI TOTAL,ALK PHOS,ALB,PROT TOTAL) [...] | >60 | >60 mL/min | | [facility] | | | + +---------+ + | EGFR NON | >60 | >60 mL/min | | -[facility] | | | + +---------+ + | [...] | + + + | Blood | [facility], CORE [address] | | | [place] [address] | + + + + + | [...] | | ------ CBC (HEMOGRAM) | | ONLY[[id number]] Abnormal Final | | result Please view [...] | + + + | Blood | [facility] [address] | | | [place] [address] | + + + VITAMIN B-12 (11/20/2017 [...] | + + + | Blood | [facility]ORE [address] | | | [place] [address] | + + + FERRITIN (11/20/2017 10:01 [...] | [facility] [address] | | | [facility] [place] [address] | + + + PTH, SERUM (11/20/2017 10:01 AM) + +-------+ + | Component | Value | Ref Range | + +-------+ + | PTH, SERUM | 88 | 18 - 88 pg/mL | + +-------+ + + + + | Specimen | Performing Laboratory | + + + | Blood | [facility] [address] [place] [address] | | | [place] [address] | + + + + + | [...] | + + + | Blood | [facility] [address] | | | [place] [address] | + + + + + | [...] with BMI of 70 and over, adult ([facility]) - Primary | + + | Diabetes mellitus type 2 without retinopathy ([facility]) | + + | Type II or unspecified type diabetes mellitus without mention of complication, not | | stated as uncontrolled | + + | Intertriginous candidiasis | + + | Candidiasis of skin and nails | + + | PCOS (polycystic ovarian syndrome) | + + | Polycystic ovaries | + + | AMARA treated with BiPAP | + + | Chronic diastolic heart failure (HCC) | + + | Chronic diastolic heart failure | + + | Essential hypertension | + +
--- OUTSIDE RECORDS SUMMARY | 2017-11-23 23:14 | XMS | Encounter Summary ---
Demographics + + + | Address | [address] | | | [place] [address] | + + + | Home Phone | | + + + | Preferred Language | Unknown | + + + | Marital Status | Single | + + + | Jewish Affiliation | PRO | + + + | Race | White | + + + | Ethnic Group | Not or | + + + Author + + + | Author | [facility] | + + + | Organization | [facility] | + + + | Address | Unknown | + + + | Phone | Unavailable | + + + Support + + + + + | Name | Relationship | Address | Phone | + + + + + | KENNY BERRY | ECON | [address] | | | | | [place], | | | | | [place] [address] | | + + + + + | Ellie Vang | ECON | Unknown | | + + + + + Care Team Providers + +------+ + | Care Pipe Fitter Ammonia Name | Role | Phone | + +------+ + | Fadi Goodrich DO | PCP | | + +------+ + Encounter Details +--------+ + + + + | Date | Type | Department | Care Team | Description | +--------+ + + + + | 10/19/ | Abstract | [facility] | Clinic, Surgery | | | 2017 | | Center at [facility] 6th | | | | | | Floor [address] | | | | | | [place] Mailcode: [facility] | | | | | | [facility] | | | | | | and [place], 6th | | | | | | floor [place], [place] | | | | | | [address] | | | | | | [phone] | | | +--------+ + + + [...] [address] | | | | | | [place] | | | | | | [address] | | | | | | [phone] | | | | | | | | +--------+ + + + + as of this encounter Visit Diagnoses Not on filein this encounter"
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
--- OUTSIDE RECORDS SUMMARY | 2017-11-23 23:14 | XMS | Encounter Summary ---
Demographics + + + | Address | [address] | | | [place] [address] | + + + | Home Phone | | + + + | Preferred Language | Unknown | + + + | Marital Status | Single | + + + | Buddhism Affiliation | PRO | + + + | Race | White | + + + | Ethnic Group | Not or | + + + Author + + + | Author | [facility] | + + + | Organization | [facility] | + + + | Address | Unknown | + + + | Phone | Unavailable | + + + Support + + + + + | Name | Relationship | Address | Phone | + + + + + | KENNY BERRY | ECON | [address] | | | | | [place], | | | | | [place] [address] | | + + + + + | Ellie Vang | ECON | Unknown | | + + + + + Care Team Providers + +------+ + | Care Railroad Wheels And Axles Inspector Name | Role | Phone | + +------+ + | Fadi Goodrich DO | PCP | | + +------+ + Reason for Visit + + + | Reason | Comments | + + + | Medical nutrition | | | therapy | | + + + Consultation (Routine) + +--------+ + + + + | Status | Reason | Specialty | Diagnoses / | Referred By | Referred To | | | | | Procedures | Contact | Contact | + +--------+ + + + + | Authorized | | Cardiology | Diagnoses | Tiny, | Kimani, | | | | | Right heart | MD Randell | Edith Ernst, | | | | | failure | [address] | PA-C [address] | | | | | Procedures | Giles Davis | [address] | | | | | CONSULT TO | Lesly Gutiérrez | [place], [place] | | | | | CAR | [place], [place] | [address] | | | | | PREVENTATIVE | [address] | Phone: | | | | | [facility] - | Phone: | [phone] | | | | | LIPIDS | [phone] | Fax: | | | | | | Fax: | [phone] | | | | | | [phone] | | + +--------+ + + + + Encounter Details +--------+---------+ + + + | Date | Type | Department | Care Team | Description | +--------+---------+ + + + | 09/11/ | Office | Cardiology | Olga Lidia Montanez, | Morbid obesity with | | 2017 | Visit | Preventive at [facility] | [address] | BMI of 70 and over, | | | | [address] | [address] | adult (HCC) (Primary | | | | Mailcode: CH9A | [place], [place] | Dx) | | | | [facility] | [address] | | | | | and Healing | | | | | | [place], [place] | | | | | | [address] | | | | | | [phone] | | | +--------+---------+ + + + [...] + + + | Blood Pressure | - | - | + + + + | Pulse | - | - | + + + + | Temperature | - | - | + + + + | Respiratory Rate | - | - | + + + + | Oxygen Saturation | - | - | + + + + | Inhaled Oxygen | - | - | | Concentration | | | + + + + | Weight | 176.5 kg (389 lb 3.2 | 09/11/2017 2:29 PM PST | | | oz) | | + + + + | Height | 154.9 cm (5' 1") | 09/11/2017 2:29 PM PST | + + + + | Body Mass Index | 73.54 | 09/11/2017 2:29 PM PST | + + + + in this encounter Instructions Patient Instructions - Olga Lidia Montanez RD - 09/11/2017 2:30 PM PSTNutrition appointment, 09/11/2017 Dietitian: Olga Lidia Montanez RD, LD [facility] Bariatric department (to reschedule classes): [phone] Goals: 1. Try to stop buying Pop-Tarts 2. Replace afternoon snack (think of this as lunch) with vegetables or fruit -cucumbers, carrots, broccoli, cauliflower, etc. -try making ranch dip w/ nonfat plain yogurt (regular or Niuean) (or mix yogurt w/ salsa; o r chipotle hot sauce & elim ira juice) 3. Snack ideas: -fruit -vegetables (with hummus or yogurt dip) -Niuean yogurt - light (have w/ fruit if you're still hungry) -applesauce - unsweetened, w/ lowfat string cheese -1/4 cup nuts -lowfat string cheese -low-fat or non-fat cottage cheese w/ tomatoes 4. Aim for 60-80 grams of protein a day (see list) 5. Add Niuean yogurt to breakfast Heart Protection Kitchen from [facility] Healthy eating made simple. What: FREE heart-healthy cooking demonstrations led by guest geriatric nurse and nutrition experts. Samples are provided! Where: [facility] ([facility]), September, 2nd floor teaching kitchen When: All classes from 11:00am-12:00pm ? October 12 (led by Dr. Paulino Carreno MD) Please contact Keerthi Boyer at [phone] or email at [email or web address] for information on upcoming classes and to register. Space is limited - reserve your seat today! Want more info on what to eat? Watch the [employer] video, "Healthy Eating 101," at [email or web address]/[email or web address] in this encounter Progress Notes Olga Lidia Montanez, RD - 09/11/2017 2:30 PM PSTFormatting of this note may be different from the original. [facility], Nutrition Consultation Referring provider: Dr. Randell Franks MD Referring diagnosis: obesity, HF, DM2 Visit type: Initial; [id number] visit with patient Questions/Information desired today: Hoping to eat better to continue to lose weight. Bad a bout not eating; would like to be on a more regular meal schedule. Doesn't eat during the da y (not hungry) then gets really hungry at night. Can't lose any more after losing over 100 l bs; is able to maintain easily. Is restarting the bariatric program; getting PT in [place] & has nutrition classes scheduled. Still has bariatric notebooks at home. Per [employer] message from Dr. Pandey 09/10/17: "Just tell her to try not to gain any weight a nd anything she can lose will help me lift her liver during surgery. Fatty livers can be f riable and bleed, preventing completion of surgery. Otherwise, no, she doesn't need to lose another 50lbs at all." Health-related goals: continue to lose weight, have bariatric surgery ASSESSMENT Patient Active Problem List Diagnosis Hernia Severe Morbid obesity (HCC), BMI 88 Type 2 diabetes mellitus (HCC) AMARA (obstructive sleep apnea) Edema and weight gain GERD (gastroesophageal reflux disease) Vitamin D deficiency disease Intertriginous candidiasis HTN (hypertension) Skin breakdown Anemia Decreased mobility Hypoventilation associated with obesity (HCC) PCOS (polycystic ovarian syndrome) Ventral hernia Migraine headache Abdominal pain Hypothyroidism Diabetes mellitus with insulin therapy (HCC) YO (dyspnea on exertion) Anasarca Right heart failure Acute DVT (deep venous thrombosis) -- left mid & distal femoral vein, and popliteal vei n Candidal intertrigo Iron deficiency anemia due to chronic blood loss Hypoalbuminemia (no proteinuria, need to rule out synthetic, nutrition, loss) Lipoedema Morbid obesity with BMI of 70 and over, adult (HCC) Chronic diastolic heart failure (HCC) Immobility Severe muscle deconditioning Personal history of DVT (deep vein thrombosis) History of pulmonary embolism AMARA treated with BiPAP Benign essential HTN Diabetes mellitus type 2 without retinopathy ([facility]) Hyperlipidemia Ventral hernia without obstruction or gangrene FOOD AND NUTRITION HISTORY Food Allergies: No Food Intolerances: No Lactose Intolerance: No Past diet education: Yes - for weight loss & bariatric prep Current diet: Regular - eating smaller meals. Low-sodium - no added salt in cooking or at t he table, checks nutrition labels for sodium. Hx 100 lb wt gain from fluids - [facility] no fluid restriction currently. Typical food intake: 24-hr recall (at 's house) Up at 7am B (7:30am): Frosted Flakes (1 c) w/ 2% milk (1/2 c) L (noon): 7 baked curly fries D (5pm): out - [employer] in [employer] - 2 crunchy tacos, 3 egg rolls Usually has apple as HS snack (didn't last night) Bed 8:30pm; sleep 10pm. Does not eat in the night. Fluids: water (4 17 oz bottes/d), diet soda (24 oz/d), 1% milk (2% at 's) (8-10 oz/d) At [facility]'s house: B: cereal (< 170 kcal) & 1% milk; occ w/ applesauce or Niuean yogurt No L S (3pm): pop-tart or cookies (3 Oreos) D (7-9pm): meat, vegetable, side dish; or spaghetti; stroganoff; pork chop & green beans & potatoes S: apple Cooking and shopping done by pt's mom or girlfriend (splits time between living w/ mom & gi rlfriend - GF 8-9 days a month, mom the rest of the time). Eats less at her GF's house - GF eats very small meals, she makes sure pt eats more frequently than at home. Tries to keep bu sy during the day - does the laundry & dishes, takes care of grandkids (9 yo, 5 yo, 4 mo) 4 days a week. No fried foods at home - sautees in canola oil, or bakes. Pt grocery shops w/ m om; they always shop w/ a list. Dining out: not at all when w/ mom; 1/mo w/ GF Fruit: 1 apple daily; would love to have more but it's too expensive. Occ fruit bowls from [facility]. Vegetables: every day w/ dinner - usually frozen Red meats: 2-3x/mo Processed meats: occ spencer Poultry: mostly chicken Fish/seafood: no - doesn't like it Meatless meals: no - occ dee soup but not regularly Eggs: 2x/month - scr Cheese/full-fat dairy: on sandwiches - 1-2/wk Cooking oil: canola Butter/margarine: light margarine - rare Thinks they should change: improve meal timing. Healthier snacks. Except apple, she does no t snack on healthy foods - e.g., cookie, Pop Tarts; 2x/day. Eat more vegetables - thinks she doesn't eat enough. Vitamins/Minerals/Herbal Supplements: vit D Pertinent Medications: phentermine, topiramate. See Epic medications for complete list. Diabetes: Metformin, insulin -CBGs: BID - ~130 or less Physical activity: Is in PT 2x/week for bariatric program (in [place]) UBW: 385-391 lbs Max weight: 529 lbs Weight history: lost from 495 lbs to 383 lbs in 9090-5568 on Atkins diet ANTHROPOMETRICS: Height: Ht Readings from Last 1 Encounters: 09/11/17 1.549 m (5' 1") Weight: Wt Readings from Last 1 Encounters: 09/11/17 176.5 kg (389 lb 3.2 oz) 11/28/16 179.443 kg (395 lb 10 oz) Body mass index is 73.54 kg/m. 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 Range 11/28/2016 CHOLESTEROL (LAB) Latest Ref Range: <200 mg/dl 175 HDL CHOLESTEROL Latest Ref Range: >50 mg/dl 34 (L) LDL CHOLEST Latest Ref Range: <100 mg/dl 91 VLDL CHOLESTEROL Latest Ref Range: <=31 mg/dl 50 (H) NON-HDL CHOLESTEROL Latest Ref Range: <=130 mg/dL 141 (H) TOTAL TRIGLYCERIDE - LIPID LAB Latest Ref Range: <150 mg/dl 248 (H) NUTRITION DIAGNOSIS Obesity related to genetics, hx excessive caloric intake, hx emotional eating, as evidenced by BMI 73.54; pt has experienced a remarkable weight loss from her maximum weight, is now m aintaining well with add'l slight weight loss over the past year. Is very motivated to eat w ell & have continued success with weight loss; anticipate excellent compliance in the [facility] surgery program. Currently eating energy-dense/nurient-poor foods in the afternoon; disc ussed framing this as a meal rather than a snack to help make more balanced & substantial ch oices, both to increase the nutrient-density of her overall diet and to help prevent getting overly hungry by dinner. INTERVENTION Education provided: Discussed weight loss strategies including meal timing, using healthy e ating plate, meal planning, hydration, choosing foods that are high volume with low energy d ensity. Reviewed bariatric surgery diet guidelines (including protein goals, hydration), beh avior changes (mindful eating, fluids from meals, avoiding carbonation & caffeine ), and micronutrient supplementation. Pt reports chronic low potassium levels for which she takes supplementation - we discussed good dietary sources of potassium and how to increase h er current intake. Discussed strategies to eat well on a budget (e.g., frozen fruits/vegetab les). Encouraged her to continue reviewing her bariatric surgery notebook and continue damian genao behavior changes to prepare for surgery. She plans to d/c diet soda on 09/24/17. Handout(s) provided: My Heart-Healthy Plate; Patient Instructions; Bariatric Surgery Snack Ideas; high-potassium diet w/ sample menu Patient's Comprehension: Receptive Stage of change: Action Barrier(s) to education: No Anticipated compliance: Good MONITORING AND EVALUATION PATIENT GOALS: 1. Replace current afternoon snack with vegetables or fruit; think of this meal as lunch to help make more balanced choices 2. Aim for 60-80 grams of protein a day - add light Niuean yogurt to breakfast; include lean protein with PM snack/lunch 3. D/c carbonated beverages (e.g., diet soda); replace with water, Crystal Light, diet deca f tea, or other calorie-free still beverage Contact information was provided; call or send [employer] message to dietitian with any questi ons. Olga Lidia Montanez RD, LD in this encounter Plan of Treatment +--------+ [...] | | 2017 | Visit | | [address] | | | | | | [address] | | | | | | [place], [place] | | | | | | [address] | | | | | | [phone] | | | | | | | | +--------+ + + + + as of this encounter Visit Diagnoses + + | Diagnosis | + + | Morbid obesity with BMI of 70 and over, adult (HCC) - Primary | + +
--- OUTSIDE RECORDS SUMMARY | 2017-11-23 23:14 | XMS | Encounter Summary ---
Demographics + + + | Address | [address] | | | [place] [address] | + + + | Home Phone [...] Author + + + | Author | [facility] | + + + | Organization | [facility] | + + + | Address | Unknown | + + + | Phone | Unavailable | + + + Support + + + + + | Name | Relationship | Address | Phone | + + + + + | KENNY BERRY | ECON | [address] | | | | | [place], | | | | | [place] [address] | | + + + + + | Ellie Vang | ECON | Unknown | | + + + + + Care Team Providers + +------+ + | Care Electronic Assembler Group Leader Name | Role | Phone | + +------+ + | Fadi Goodrich DO | PCP | | + +------+ + Encounter Details +--------+ + + + + | Date | Type | Department | Care Team | Description | +--------+ + + + + | 10/27/ | Telephone | [facility] | Leslie Mistry | | | 2017 | | 15th [address] | PhD [address] [facility] | | | | | [address] | [address] | | | | | Code: CH15[address] | [place], [place] | | | | | [facility] and | [address] | | | | | , 15th Floor | [phone] | | | | | [place], [place] | | | | | | [address] | | | | | | [phone] | | | +--------+ + + + [...] [address] | | | | | | [place], [place] | | | | | | [address] | | | | | | [phone] | | | | | | | | +--------+ + + + + as of this encounter Visit Diagnoses Not on filein this encounter"
--- OUTSIDE RECORDS SUMMARY | 2017-11-23 23:14 | XMS | Encounter Summary ---
Demographics + + + | Address | [address] | | | [place] [address] | + + + | Home Phone | | + + + | Preferred Language | Unknown | + + + | Marital Status | | + + + | Uatsdin Affiliation | Unknown | + + + | Race | Unknown | + + + | Ethnic Group | Unknown | + + + Author + + + | Author | [facility] [employer] [facility] | + + + | Organization | [facility] [employer] [facility] | + + + | Address | Unknown | + + + | Phone | Unavailable | + + + Support + + +---------+ + | Name | Relationship | Address | Phone | + + +---------+ + | Katalina Padilla | ECON | Unknown | | + + +---------+ + | Ellie Barnett | ECON | Unknown | | + + +---------+ + | Ila Flores ECON | Unknown | | + + +---------+ + Care Team Providers + +------+ + | Care Cracker And Cookie Machine Operator Name | Role | Phone | + +------+ + | Fadi Goodrich DO | PCP | | + +------+ + Encounter Details +--------+---------+ + + + | Date | Type | Department | Care Team | Description | +--------+---------+ + + + | 10/14/ | Office | [facility] | Dharmesh Escobar, | Hypokalemia (Primary | | 2018 | Visit | [address] | SELINA Janelle ANABEL | Dx) | | | | [address] | [address] | | | | | [address], [place] | [place] [address] | | | | | [address] | [phone] | | | | | | | | +--------+---------+ + + + Social History + +-------+ +--------+------+ | Tobacco Use | Types | Packs/Day | Years | Date | | | | | Used | | + +-------+ +--------+------+ | Never Smoker | | | | | + +-------+ +--------+------+ + +---+---+---+ | Smokeless Tobacco: | | | | | Never Used | | | | + +---+---+---+ + + +---------+ + | Alcohol Use | Drinks/We | oz/Week | Comments | | | ek | | | + + +---------+ + | No | 0 | 0.0 | | | | Standard | | | | | drinks or | | | | | | | | | | equivalen | | | | | t | | | + + +---------+ + + + + | Sex Assigned at | Date Recorded | | | | + + + | Not on file | | + + + as of this encounter Last Filed Vital Signs + + + + | Vital Sign | Reading | Time Taken | + + + + | Blood Pressure | 134/86 | 10/14/2017 1:35 PM PDT | + + + + | Pulse | 104 | 10/14/2017 1:35 PM PDT | + + + + | Temperature | 36.3 C (97.4 F) | 10/14/2017 1:35 PM PDT | + + + + | Respiratory Rate | - | - | + + + + | Oxygen Saturation | 97% | 10/14/2017 1:35 PM PDT | + + + + | Inhaled Oxygen | - | - | | Concentration | | | + + + + | Weight | 178.9 kg (394 lb 6.4 | 10/14/2017 1:35 PM PDT | | | oz) | | + + + + | Height | 154.9 cm (5' 1") | 10/14/2017 1:35 PM PDT | + + + + | Body Mass Index | 74.52 | 10/14/2017 1:35 PM PDT | + + + + in this encounter Instructions Patient Instructions - Dharmesh Escobar ARNP - 10/14/2017 1:40 PM PDT Medication Changes made at today's visit: None Next LAB WORK should be done in about: 12 Months You do NOT need to fast for this lab work, keep hydrated. Next APPOINTMENT: in about 12 Months Other Instructions: Low Salt Diet Recommended Please have lab work done 1 weeks prior to your appointment. Make sure you are well hydrated prior to going to the lab and are able to give a urine s ample. Call the office with any questions or concerns. in this encounter Progress Notes Dharmesh Escobar ARNP - 10/14/2017 1:40 PM PDTFormatting of this note may be different f rom the original. Patient Active Problem List Diagnosis Chronic diastolic heart failure (HCC) Hypokalemia Hyperuricemia Morbid obesity with alveolar hypoventilation (HCC) AMARA treated with BiPAP Edema DM (diabetes mellitus) Acute right-sided low back pain without sciatica Dear Dr Goodrich: I saw your patient Ms. Cristina in the office today. As you are familiar with her case, I wi ll not state her past history in detail. Briefly, she is a 42 y.o. female patient with past history as delineated above. she is here to follow up on her prior hypokalemia. She had hy pokalemia for the first time in 10/2015 she experienced muscle twitching, weakness & was fou nd to have severely low potassium. For peripheral edema she has been on diuretics for some t susy. She is followed by cardiology as well. she says that she feels 'good ' today, she reports no new issues and is excited about possi ble gastric bypass surgery appointment soon. Mild stress incontinence. She's had leg edema since mid 2014. +ve history of passing kidne y stones. she reports she has chronic pain and currently on a fentanyl patch changed every 3 days. She reports she plans to have gastric bypass surgery at some point soon at [facility]. she denies any blurred vision tinnitus, headache, fever, chills, or cough. vomiting; no di arrhea, melena, or hematochezia. No palpitation, loss of consciousness, orthopnea, paroxysm al nocturnal dyspnea; No dysuria, hematuria or symptoms of UTI. she has 0 nightly nocturia. Cardiac echo done 2016: 1. See Dictation. TDS. Sinus. 2. Cardiac chamber dimensions gr ossly NML. LV systolic and diastolic functions grossly NML, unable to assess segmental wal l motion, Lamar visually estimates LVEF >70%. RV grossly NML. 3. Aortic valve sclerotic, no /AI observed. Mitral and Tricuspid valves grossly NML, Pulmonic valve not seen well. Trace TR. 4. No Pericardial effusion. 5. IVC not seen well. MRI of brain done 2002 showin. Normal magnetic resonance imaging (MRI) of the pituitar y gland with enhancement. No imaging findings suggestive of a pituitary microadenoma at this point in time. Recommend correlation with laboratory data and follow-up examination at some point in the future. 2. 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 Correlate with clinical history. The following portions of the patient's history were reviewed and updated as appropriate: a llergies, current medications, past medical history, past social history, past surgical hist ory, family history and problem list. She lives at home with her mother in [place]. As in History of Present Illness & in Assessment. All the twelve systems were reviewed and were otherwise negative. Current Outpatient Prescriptions Medication Sig Dispense Refill ALPRAZolam (XANAX) 1 MG tablet Take 1 mg by mouth nightly as needed for Sleep. ascorbic acid (VITAMIN C) 500 MG tablet Take 500 mg by mouth daily. aspirin 81 MG EC tablet Take 81 mg by mouth daily with breakfast. atenolol (TENORMIN) 25 MG tablet Take 1 tablet by mouth nightly. 30 tablet 11 Calcium Citrate-Vitamin D (CALCIUM CITRATE + D PO) Take by mouth. ergocalciferol (DRISDOL) 68479 UNITS capsule Take 50,000 Units by mouth twice a week. Etonogestrel (NEXPLANON) 68 MG IMPL Inject into the skin. fentaNYL (DURAGESIC) 25 MCG/HR Place 1 patch onto the skin every third day. FLUoxetine (PROZAC) 20 MG capsule Take 60 mg by mouth daily. gabapentin (NEURONTIN) 300 MG capsule Take 300 mg by mouth 4 (four) times daily. Insulin Degludec (TRESIBA FLEXTOUCH SC) Inject 68 Units into the skin nightly. insulin NPH-insulin regular (NOVOLIN 70/30) (70-30) 100 UNIT/ML injection Inject 5 Unit s into the skin 2 (two) times daily before meals. Magnesium 400 MG CAPS Take 1 capsule by mouth daily. metFORMIN (GLUCOPHAGE) 1000 MG tablet Take 1,000 mg by mouth 2 (two) times daily with m eals. OLANZapine (ZYPREXA) 15 MG tablet Take 30 mg by mouth nightly. ondansetron (ZOFRAN) 4 MG tablet Take 4 mg by mouth 3 (three) times daily as needed for Nausea. phentermine (ADIPEX-P) 37.5 MG tablet Take 37.5 mg by mouth every morning before breakf ast. piroxicam (FELDENE) 10 MG capsule Take 10 mg by mouth nightly. potassium chloride SA (K-DUR,KLOR-CON) 20 MEQ tablet Take 60 mEq by mouth 4 (four) time s daily. pseudoephedrine (SUDAFED) 120 MG 12 hr tablet Take 120 mg by mouth every 12 (twelve) ho urs. senna-docusate (PERICOLACE) 8.6-50 MG per tablet Take 1 tablet by mouth 2 (two) times d aily. spironolactone (ALDACTONE) 50 MG tablet Take 50 mg by mouth daily. thyroid (ARMOUR) 30 MG tablet Take 30 mg by mouth every morning before breakfast. topiramate (TOPAMAX) 200 MG tablet Take 50 mg by mouth 2 (two) times daily. torsemide (DEMADEX) 100 MG tablet Take 100 mg by mouth 2 (two) times daily. traZODone (DESYREL) 150 MG tablet Take 150 mg by mouth nightly. HYDROcodone-acetaminophen (NORCO) 7.5-325 MG per tablet Take 1 tablet by mouth every 6 (six) hours as needed for Pain. No current facility-administered medications for this visit. Physical Exam: BP 134/86 (BP Location: Right forearm, Patient Position: Sitting) | Pulse 104 | Temp 97.4 F (36.3 C) (Temporal) | Ht 1.549 m (5' 1") | Wt 178.9 kg (394 lb 6.4 oz) | SpO2 97% | BMI 74.52 kg/m General appearance: Pleasant, not in acute distress. Morbidly obese. Neck: Supple without tracheal deviation or jugular venous distension. Head and ENT: Head is atraumatic. The oropharynx is without erythema or thrush. Eyes: Anicteric. The extraocular muscle movements are normal. Lungs: Clear to auscultation bilaterally. There are no wheezes. Heart: Regular rate and rhythm without any rub, gallop. no murmur. Abdominal exam: Soft and nontender with normal bowel sounds. Musculoskeletal: No CVA tenderness with palpation. Extremities: Warm to touch with trace leg edema. There is no cyanosis. Skin: There are no rashes, petechiae, or ecchymosis. Neurological: Awake, alert, and oriented to time, place, and person. Normal gross motor po wer. There is no asterixis. Psychiatric: The patient s behavior is normal. Judgment and thought content are normal. Lab Results Component Value Date BUN 17 10/07/2017 CREATININE 0.88 10/07/2017 EGFR 71 10/07/2017 NA 141 10/07/2017 K 4.4 10/07/2017 CL 104 10/07/2017 CO2 22 10/07/2017 CA 9.1 10/07/2017 MG 1.8 10/07/2017 ALB 3.5 10/07/2017 HGB 12.8 10/07/2017 URICACID 8.7 (A) 10/07/2017 WBC 10.9 10/07/2017 HCT 39.8 10/07/2017 LABPROT 154.4 (A) 10/07/2017 Assessment: Ms. Cristina is a 42 y.o. female patient with a resolved hypokalemia; this was in the setting of loop diuresis. RENAL FUNCTION: Normal GFR BLOOD PRESSURE: Reports it controlled, ok in the office BLOOD SUGAR: Reports it controlled ELECTROLYTES: HypoK was severe in the past, ok now with replacement. ANEMIA: None VITAMIN D: To be checked thru your office URIC ACID: Slight improvement PROTEINURIA: Mild URINALYSIS: No UTI or hematuria VOLUME STATUS: Euvolumic Discussions/Recommendations: I discussed today with Ms.. Cristina the meaning of her hypokalemia and the interaction of molly t with her diuretics. I stressed the importance of keeping her BG controlled and avoiding g etting dehydrated if we are to have a chance at helping preserve her renal function. she sh owed good understanding. she will strictly abide by a low salt & low purine diet and will a void all kinds of NSAIDs for analgesia. Also: Continue low purine diet, will consider starting allopurinol if uric acid becomes elevat ed. BP Charting: she will bring me back her home BP charts in 2 weeks. At that time, I will decide whether any changes to her vasoactive regimen are warranted. Follow up labs include: RFP, Magnesium, CBC, intact PTH, uric acid, Urine total protein- to-creatinine ratio and other labs as indicated. I advised her to exercise regularly but safely & to try to lose weight methodically; She voiced good understanding. Discussed to avoid alcohol and caffeine. Patient has expressed understanding of today's instructions, all questions have been ans wered to their satisfaction and written instructions have been provided. She will continue to F/U with your office regularly. She will have labs done before she comes back in [address] Goodrich for the opportunity to follow up with this patient and be part of the care team. Please do not hesitate to call me at any time with questions or concerns. Truly yours, Dharmesh MARKS [facility] This note prepared with voice recognition software, if any questions concerning spelling an d/or grammar, please call. in this encounter Plan of Treatment Not on fileas of this encounter Visit Diagnoses + + | Diagnosis | + + | Hypokalemia - Primary | + + | Hypopotassemia | + +
--- OUTSIDE RECORDS SUMMARY | 2017-11-23 23:14 | XMS | Encounter Summary ---
Demographics + + + | Address | [address] | | | [place] [address] | + + + | Home Phone | | + + + | Preferred Language | Unknown | + + + | Marital Status | | + + + | Shinto Affiliation | Unknown | + + + | Race | Unknown | + + + | Ethnic Group | Unknown | + + + Author + + + | Author | [facility] [employer] [facility] | + + + | Organization | [facility] | + + + | Address [...] + + +---------+ + | Ila Flores | ECON | Unknown | | + + +---------+ + Care Team Providers + +------+ + | Care Internal Combustion Engineer Name | Role | Phone | + +------+ + | Fadi Goodrich DO | PCP | | + +------+ + Reason for Visit + + + | Reason | Comments | + + + | Labs Only | [facility] dated 10/07/2017 | + + + Encounter Details +--------+ + + + + | Date | Type | Department | Care Team | Description | +--------+ + + + + | 10/09/ | Documentati | [facility] | Michelle Daley CMA | Labs Only ([facility] | | 2018 | on Only | [address] | | Labs dated | | | | [address] | | 10/07/2017) | | | | [place] [address] | | | | | | [phone] | | | +--------+ + + + [...] as of this encounter Plan of Treatment Not on fileas of this encounter Results Uric acid (10/07/2017 12:50 AM) + +---------+ + | Component | Value | Ref Range | + +---------+ + | URIC ACID | 8.7 (A) | 2.3 - 6.6 | + +---------+ + + + + | Specimen | Performing Laboratory | + + + | Blood | [facility] [address] [facility] [address] [place] | | | [address] | + + + in this encounter Visit Diagnoses Not on filein this encounter"
--- OUTSIDE RECORDS SUMMARY | 2017-11-23 23:14 | XMS | Encounter Summary ---
Demographics + + + | Address | [address] | | | [place] [address] | + + + | Home Phone | | + + + | Preferred Language | Unknown | + + + | Marital Status | Single | + + + | Taoist Affiliation | PRO | + + + | Race | White | + + + | Ethnic Group | Not or | + + + Author + + + | Author | [facility] | + + + | Organization | [facility] | + + + | Address | Unknown | + + + | Phone | Unavailable | + + + Support + + + + + | Name | Relationship | Address | Phone | + + + + + | KENNY BERRY | ECON | [address] | | | | | [place], | | | | | [place] [address] | | + + + + + | Ellie Vang | ECON | Unknown | | + + + + + Care Team Providers + +------+ + | Care Board Attendant Name | Role | Phone | + +------+ + | Fadi Goodrich DO | PCP | | + +------+ + Encounter Details +--------+ + + + + | Date | Type | Department | Care Team | Description | +--------+ + + + + | 11/04/ | Telephone | [facility] | Leslie Mistry | | | 2017 | | 15th [address] | PhD [address] [facility] | | | | | [address] | [address] | | | | | Code: [id number] [place] | [place], [place] | | | | | [facility] and | [address] | | | | | , 15th Floor | [phone] | | | | | [place], [place] | | | | | | [address] | | | | | | [phone] | | | +--------+ + + + [...] [address] | | | | | | [place], [place] | | | | | | [address] | | | | | | [phone] | | | | | | | | +--------+ + + + + as of this encounter Visit Diagnoses Not on filein this encounter"
--- OUTSIDE RECORDS SUMMARY | 2017-11-23 23:14 | XMS | Clinical Summary ---
Demographics + + + | Address | [address] | | | [place] [address] | + + + | Home Phone [...] Author + + + | Author | [facility] | + + + | Organization | [facility] | + + + | Address | Unknown | + + + | Phone | Unavailable | + + + Support + + + + + | Name | Relationship | Address | Phone | + + + + + | KENNY BERRY | ECON | [address] | | | | | [place], | | | | | [place] [address] | | + + + + + | Ellie Vang | ECON | Unknown | | + + + + + Care Team Providers + +------+ + | Care Air Pollution Analyst Name | Role | Phone | + +------+ + | Fadi Goodrich DO | PP | | + +------+ + Source Comments [facility] is fully live on both EpicCare Ambulatory and EpicCare InPatient.[facility] Allergies + + + + + + | Active Allergy | Reactions | Severity | Noted | Comments | | | | | Date | | + + + + + + | Amoxicillin | | | 05/13/19 | | | | | | 93 | | + + + + + + | Diphenhydramine Hcl | Hives | | 10/08/19 | | | | | | 13 | | + + + + + + | Bromocriptine | Unknown | | 04/14/20 | Blood clots | | | | | 13 | | + + + + + + | Penicillin | Hives | | 01/02/20 | | | | | | 17 | | + + + + + + Current Medications + + +--------+---------+------+------+-------+ | Prescription | Sig. | Disp. | Refills | Star | End | Statu | | | | | | t | Date | s | | | | | | Date | | | + + +--------+---------+------+------+-------+ | metFORMIN 1,000 mg | Take 1,000 mg by | | | | | Activ | | Oral tablet | mouth two times | | | | | e | | | daily. | | | | | | + + +--------+---------+------+------+-------+ | traZODone 150 mg | Take 150 mg by mouth | | | | | Activ | | Oral tablet | once daily at | | | | | e | | | bedtime. | | | | | | + + +--------+---------+------+------+-------+ | ascorbic acid | Take 500 mg by mouth | | | | | Activ | | (VITAMIN C) 500 mg | once daily. | | | | | e | | Oral tablet | | | | | | | + + +--------+---------+------+------+-------+ | ergocalciferol | Take 50,000 Units by | | | | | Activ | | (VITAMIN D2) 50,000 | mouth twice weekly | | | | | e | | unit oral capsule | (on Thursday and | | | | | | | | ). | | | | | | + + +--------+---------+------+------+-------+ | thyroid (ARMOUR | Take 30 mg by mouth | | | | | Activ | | THYROID) 30 mg oral | once daily. | | | | | e | | tablet tab | | | | | | | + + +--------+---------+------+------+-------+ | ALPRAZolam 1 mg | Take 1 mg by mouth | | | | | Activ | | oral tablet | three times daily as | | | | | e | | | needed for anxiety. | | | | | | + + +--------+---------+------+------+-------+ | magnesium oxide | Take 400 mg by mouth | | | | | Activ | | 400 mg oral tablet | once daily. | | | | | e | + + +--------+---------+------+------+-------+ | CALCIUM | Take 2 tablets by | | | | | Activ | | [id number] | mouth two times | | | | | e | | IS ORAL | daily. | | | | | | + + +--------+---------+------+------+-------+ | gabapentin 300 mg | Take 300 mg by mouth | | | | | Activ | | oral capsule | four times daily. | | | | | e | + + +--------+---------+------+------+-------+ | FLUoxetine 20 mg | Take 60 mg by mouth | | | | | Activ | | oral tablet | once daily at | | | | | e | | | bedtime. | | | | | | + + +--------+---------+------+------+-------+ | sodium fluoride | Place onto the | | | | | Activ | | 1.1 % dental cream | teeth. Use to brush | | | | | e | | | teeth 2 to 3 times | | | | | | | | daily as directed. | | | | | | | | Do not eat drink or | | | | | | | | rinse mouth | | | | | | | | immediately | | | | | | | | following use. Do | | | | | | | | not swallow | | | | | | + + +--------+---------+------+------+-------+ | OLANZapine 15 mg | Take 30 mg by mouth | | | | | Activ | | oral tablet | once daily at | | | | | e | | | bedtime. | | | | | | + + +--------+---------+------+------+-------+ | ranitidine 150 mg | Take 150 mg by mouth | | | | | Activ | | oral | once daily as | | | | | e | | tabletIndications: | needed. Indications: | | | | | | | Heartburn | HEARTBURN | | | | | | + + +--------+---------+------+------+-------+ | topiramate 200 mg | Take 50 mg by mouth | | | | | Activ | | oral | two times daily. | | | | | e | | tabletIndications: | Indications: | | | | | | | Migraine Prevention | Migraine Prevention | | | | | | + + +--------+---------+------+------+-------+ | potassium chloride | Take 2 tablets by | 120 | 0 | 04/2 | | Activ | | SR 20 mEq oral | mouth two times | tablet | | /20 | | e | | tablet,ER | daily. | | | 16 | | | | particles/crystals | | | | | | | + + +--------+---------+------+------+-------+ | TRESIBA FLEXTOUCH | Inject 67 Units | | | 04/2 | | Activ | | U-100 100 unit/mL (3 | under the skin | | | 1/20 | | e | | mL) subcutaneous | (SUBC) once daily at | | | 17 | | | | insulin pen | bedtime. | | | | | | + + +--------+---------+------+------+-------+ | fentaNYL 25 mcg/hr | 1 patch every | | 0 | 04/1 | | Activ | | transdermal patch | seventy-two hours. | | | 9/20 | | e | | 72 hour | | | | 17 | | | + + +--------+---------+------+------+-------+ | aspirin EC 81 mg | Take 81 mg by mouth | | | | | Activ | | oral tablet,delayed | once daily. | | | | | e | | release (DR/EC) | | | | | | | + + +--------+---------+------+------+-------+ | torsemide 100 mg | Take 100 mg by mouth | | | 02/24 | | Activ | | oral tablet | two times daily. | | | 08/15 | | e | | | | | | 16 | | | + + +--------+---------+------+------+-------+ | oxyCODONE | Take 1 tablet by | 21 | 0 | 06/0 | | Activ | | (immediate release) | mouth every three | tablet | | 04/15 | | e | | 5 mg oral | hours as needed | | | 17 | | | | tabletIndications: | (Pain). Indications: | | | | | | | Pain | Pain | | | | | | + + +--------+---------+------+------+-------+ | phentermine 37.5 | Take 1 tablet by | 90 | 1 | 05/27 | | Activ | | mg oral tablet | mouth once daily in | tablet | | 02/12 | | e | | | the morning | | | 17 | | | | | Administer before | | | | | | | | breakfast. | | | | | | + + +--------+---------+------+------+-------+ | atenolol 25 mg | Take 1 tablet by | | | 05/27 | | Activ | | oral tablet | mouth once daily | | | 02/12 | | e | | | | | | 17 | | | + + +--------+---------+------+------+-------+ | NOVOLIN N 100 | Inject under the | | | 12/0 | | Activ | | unit/mL subcutaneous | skin (SUBC) three | | | 20 | | e | | suspension | times daily with | | | 17 | | | | | meals. | | | | | | + + +--------+---------+------+------+-------+ | | Take 1-2 tablets by | | | | | Activ | | HYDROcodone-acetamin | mouth every four | | | | | e | | ophen 7.5-500 mg | hours as needed. | | | | | | | oral tablet | | | | | | | + + +--------+---------+------+------+-------+ Active Problems + + + | Problem | Noted Date | + + + | Morbid obesity with BMI of 70 and over, adult ([facility]) | 02/02/2017 | + + + | Chronic diastolic heart failure (HCC) | 02/02/2017 | + + + | Immobility | 02/02/2017 | + + + | Severe muscle deconditioning | 02/02/2017 | + + + | Personal history of DVT (deep vein thrombosis) | 02/02/2017 | + + + | History of pulmonary embolism | 02/02/2017 | + + + | AMARA treated with BiPAP | 02/02/2017 | + + + | Benign essential HTN | 02/02/2017 | + + + | Diabetes mellitus type 2 without retinopathy (HCC) | 02/02/2017 | + + + | Hyperlipidemia | 02/02/2017 | + + + | Ventral hernia without obstruction or gangrene | 02/02/2017 | + + + | Lipoedema | 11/28/2016 | + + + | Iron deficiency anemia due to chronic blood loss | 11/11/2015 | + + + + + | Overview: Ferritin 18 on 10/2015 | + + + + + | Hypoalbuminemia (no proteinuria, need to rule out synthetic, | 11/11/2015 | | nutrition, loss) | | + + + | Candidal intertrigo | 11/09/2015 | + + + | Right heart failure | 11/07/2015 | + + + + + | Overview: TTE 11/07/2015The interpretation of images is | | limited by poor acoustic windows.2. The left ventricular cavity | | size is normal.3. The LV ejection fraction is normal.4. The right | | ventricular size is moderately enlarged.5. moderately enlarged | | RV & Moderately reduced RV systolic function, The RV TDI s' | | velocity is 9cm/sec* IVC is non-dilated & with normal | | respiratory variation.6. There are no prior exams available for | | comparison.. | | | |6. There are no prior exams available for comparison. | |. | + + + + + | Acute DVT (deep venous thrombosis) -- left mid & distal femoral | 11/07/2015 | | vein, and popliteal vein | | + + + + + | Overview: LE Doppler (Nov 07, 2015 ++ DVT LLE The left mid | | and distal femoral vein and popliteal vein are noncompressible | | with hypoechoic clot within them, c/w an. occlusive thrombus seen | | within the mid and distal femoral vein and popliteal vein. | | Nonocclusive thrombus in left posterior tibial vein. Bilateral | | common femoral veins patent. | + + + + + | YO (dyspnea on exertion) | 11/06/2015 | + + + | Anasarca | 11/06/2015 | + + + | Diabetes mellitus with insulin therapy (HCC) | 12/27/2014 | + + + | Hypothyroidism | 08/28/2014 | + + + | Abdominal pain | 02/07/2014 | + + + | Migraine headache | 12/05/2013 | + + + | Vitamin D deficiency disease | 06/16/2013 | + + + | Intertriginous candidiasis | 06/16/2013 | + + + | HTN (hypertension) | 06/16/2013 | + + + | Skin breakdown | 06/16/2013 | + + + | Anemia | 06/16/2013 | + + + | Decreased mobility | 06/16/2013 | + + + | Hypoventilation associated with obesity (HCC) | 06/16/2013 | + + + | PCOS (polycystic ovarian syndrome) | 06/16/2013 | + + + | Ventral hernia | 06/16/2013 | + + + | Type 2 diabetes mellitus (HCC) | 04/14/2013 | + + + | AMARA (obstructive sleep apnea) | 04/14/2013 | + + + + + | Overview: Cannot tolerate CPAP | + + + + + | Edema and weight gain | 04/14/2013 | + + + | Severe Morbid obesity (HCC), BMI 88 | 11/12/2012 | + + + + + | Overview: Lifetime max: 495 lbs | | Phentermine started | + + +--------+ + | Hernia | 11/05/2012 | +--------+ + Resolved Problems + + + + | Problem | Noted | Resolved | | | Date | Date | + + + + | Morbid obesity with BMI of 70 and over, adult ([facility]) | 06/16/20 | | | | 13 | 4 | + + + + | Diabetes mellitus ([facility]) | 06/16/20 | | | | 13 | 4 | + + + + | Sleep apnea | 06/16/20 | | | | 13 | 4 | + + + + | GERD (gastroesophageal reflux disease) | 04/14/20 | | | | 13 | 8 | + + + + Encounters +--------+ + + + + | Date | Type | Specialty | Care Team | Description | +--------+ + + + + | 11/20/ | Lab | | | 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 | | | | BMI of 70 and over, | | | | | | adult ([facility]); | | | | | | 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| | 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 ([facility]); | | | | | | Type 2 diabetes | | | | | | mellitus without | | | | | | complication, with | | | | | | long-term current | | | | | | use of insulin (HCC) | +--------+ + + + + | 11/20/ | Office | | Randell Franks, | Type 2 diabetes | | 2018 | Visit | | MD | mellitus without | | | | | | complication, with | | | | | | long-term current | | | | | | use of insulin ([facility]) | | | | | | (Primary Dx); | | | | | | Morbid obesity with | | | | | | BMI of 70 and over, | | | | | | adult ([facility]) | +--------+ + + + + | 11/04/ | Telephone | | Leslie Mistry, | | | 2017 | | | PhD | | +--------+ + + + + | 10/30/ | Office | | Ion Pandey, | 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 | Visit | | MD | BMI of 70 and over, | | | | | | adult ([facility]) (Primary | | | | | | Dx); Diabetes | | | | | | mellitus type 2 | | | | | | without retinopathy | | | | | | ([facility]); | | | | | | Intertriginous | | | | | | candidiasis; PCOS | | | | | | (polycystic ovarian | | | | | | syndrome); AMARA | | | | | | treated with BiPAP; | | | | | | Chronic diastolic | | | | | | heart failure (HCC); | | | | | | Essential | | | | | | hypertension | +--------+ + + + + | 10/27/ | Telephone | | Leslie Mistry, | | | 2018 | | | PhD | | +--------+ + + + + | 10/27/ | Abstract | | Clinic, Surgery | | | 2017 | | | | | +--------+ + + + + | 10/19/ | Abstract | | Clinic, Surgery | | | 2017 | | | | | +--------+ + + + + | 10/02/ | Office | | Leslie Mistry, | Morbid obesity | | 2017 | Visit | | PhD | ([facility]); Bipolar | | | | | | affective disorder, | | | | | | remission status | | | | | | unspecified ([facility]); | | | | | | BMI 60.0-69.9, adult | | | | | | ([facility]); Anxiety | +--------+ + + + + | 09/11/ | Office | | Olga Lidia Montanez, | 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 | Visit | | RD | BMI of 70 and over, | | | | | | adult ([facility]) (Primary | | | | | | Dx) | +--------+ + + + + from Last 3 Months Family History + + +------+ + | Medical History | Relation | Name | Comments | + + +------+ + | Heart Attack | Father | | | + + +------+ + | Diabetes | Mother | | | + + +------+ + | Alcohol/Drug | Other | | Alcoholism in mother & father | + + +------+ + | Hypertension | Other | | M&F | + + +------+ + | Asthma | Other | | Father, brother, daughters | + + +------+ + | Lung Disease | Other | | Father | + + +------+ + | Obesity | Other | | M&F&Sister | + + +------+ + | Diabetes | Other | | Mother | + + +------+ + | Arthritis | Other | | M&F | + + +------+ + | Autoimmune Disease | Sister | | lupus | + + +------+ + + +------+ + + | Relation | Name | Status | Comments | + +------+ + + | Brother | | Alive | | + +------+ + + | Child | | Alive | | + +------+ + + | Father | | | heart attack | + +------+ + + | Mother | | Alive | | + +------+ + + | Other | | | | + +------+ + + | Other | | | | + +------+ + + | Other | | | | + +------+ + + | Other | | | | + +------+ + + | Other | | | | + +------+ + + | Other | | | | + +------+ + + | Other | | | | + +------+ + + | Sister | | Alive | | + +------+ + + | Sister | | | | + +------+ + + Social History + +-------+ +--------+------+ | Tobacco Use | Types | Packs/Day | Years | Date | | | | | Used | | + +-------+ +--------+------+ | Former Smoker | | | | | + +-------+ +--------+------+ + +---+---+---+ | Smokeless Tobacco: | | | | | Never Used | | | | + +---+---+---+ + + | Tobacco Cessation: Counseling Given: Yes | + + + + +---------+ + | Alcohol Use | Drinks/We | oz/Week | Comments | | | ek | | | + + +---------+ + | No | | 0.0 | | + + +---------+ + + + + | Sex Assigned at | Date Recorded | | | | + + + | Not on file | | + + + Last Filed Vital Signs + + + + | Vital Sign | Reading | Time Taken | + + + + | Blood Pressure | 126/70 | 11/20/2017 9:03 AM PDT | + + + + | Pulse | 112 | 11/20/2017 9:03 AM PDT | + + + + | Temperature | 36.6 C (97.9 F) | 10/30/2017 10:15 AM PDT | + + + + | Respiratory Rate | 16 | 10/30/2017 10:15 AM PDT | + + + + | Oxygen Saturation | 94% | 11/20/2017 9:03 AM PDT | + + + + | Inhaled Oxygen | - | - | | Concentration | | | + + + + | Weight | 180.3 kg (397 lb 6.4 | 11/20/2017 9:03 AM PDT | | | oz) | | + + + + | Height | 149.9 cm (4' 11") | 11/20/2017 9:03 AM PDT | + + + + | Body Mass Index | 80.27 | 11/20/2017 9:03 AM PDT | + + + + Plan of Treatment +--------+ + + + + | Date | Type | Specialty | Care Team | Description | +--------+ + + + + | 12/07/ | Procedure | | | | | 2017 | Pass | | | | +--------+ + + + + | 06/04/ | Office | | Randell Franks, | | | 2017 | Visit | | [address] | | | | | | [address] | | | | | | [place], [place] | | | | | | [address] | | | | | | [phone] | | | | | | | | +--------+ + + + + + + + + + | Health Maintenance | Due Date | Last Done | Comments | + + + + + | DIABETIC EYE EXAM | | | | | | 7 | | | + + + + + | MONOFILAMENT FOOT | | | | | EXAM | 7 | | | + + + + + | URINE MICROALBUMIN | | | | | | 7 | | | + + + + + | DIABETES | | 02/02/2017, 12/27/2014, | | | SELF-MANAGEMENT | 8 | 08/28/2014, Additional history | | | EDUCATION | | exists | | + + + + + | INFLUENZA VACCINE | | 06/04/2017, 04/16/2016, | | | (FLU SHOT) | 8 | 05/30/2014, Additional history | | | | | exists | | + + + + + | HEMOGLOBIN A1C | | 11/20/2017, 11/28/2016, | | | | 8 | 08/28/2014, Additional history | | | | | exists | | + + + + + | CREATININE | | 11/20/2017, 01/01/2017, | | | | 9 | 01/01/2017, Additional history | | | | | exists | | + + + + + | CHOLESTEROL | | 11/28/2016 | | | SCREENING | 2 | | | + + + + + | PNEUMOCOCCAL ADULT | Completed | 08/07/2015 | | + + + + + Results LIPID LAB - LIPID PROFILE - PLASMA [...] | + + + | Blood | [facility], LIPID [id number] | | | [place] [address] | + + + CBC (HEMOGRAM) ONLY (11/20/2017 10:01 AM) + [...] | + + + | Blood | [facility], [facility] + HEALING [address] | | | [place] [address] | + + + VITAMIN D, 25-HYDROXY, SERUM (11/20/2017 10:01 AM) + +-------+ + | Component | Value | Ref Range | + +-------+ + | VITAMIN D 25 HYDROXY | 75.2 | 30 - 80 ng/mL | + +-------+ + + + + | Specimen | Performing Laboratory | + + + | Blood | [facility], CORE [address] | | | [place] [address] | + + + + + | Narrative | + + | Reference Interval: 0-18years: Deficiency: <20 ng/mL | | Optimum level: >or=20 | | ng/mL >18years: | | Deficiency: <20 ng/mL | | Insufficiency: 20-29 ng/mL Optimum Level: 30-80 ng/mL | | High: 81-150 ng/ml | | Toxic: >150 ng/mL | + + COMPLETE METABOLIC SET (NA,K,CL,CO2,BUN,CREAT,GLUC,CA,AST,ALT,BILI [...] | >60 | >60 mL/min | | [place] | | | + +---------+ + | EGFR NON | >60 | >60 mL/min | | -[place] | | | + +---------+ + | [...] | + + + | Blood | [facility] [address] | | | [place] [address] | + + + + + | [...] | | ------ CBC (HEMOGRAM) | | ONLY[[id number]] Abnormal Final | | result Please view results for these tests on the | | individual orders. | + + FERRITIN (11/20/2017 10:01 AM) + [...] | + + + | Blood | [facility], CORE [address] | | | [place] [address] | + + + PTH, SERUM (11/20/2017 10:01 AM) + +-------+ + | Component | Value | Ref Range | + +-------+ + | PTH, SERUM | 88 | 18 - 88 pg/mL | + +-------+ + + + + | Specimen | Performing Laboratory | + + + | Blood | [facility], CORE [address] | | | [place] [address] | + + + + + | Narrative | + + | New Reference Range effective 17. | + + VITAMIN B-12 (11/20/2017 10:01 AM) [...] | + + + | Blood | [facility], CORE [address] | | | [place] [address] | + + + HEMOGLOBIN A1C, BLOOD [...] | + + + | Blood | [facility] + [place] [address] | | | [place] [facility] [address] | + + + + + | Narrative | + + | Alternate forms of testing such as fructosamine should be considered for | | monitoring long term care phlebotomist glycemic control in patients with: Increased red cell turnover, | | certain hemoglobinopathies (e.g., HbS, HbE, HbC and thalassemia syndromes), anemias, | | blood loss, chronic liver disease and hemochromatosis (artefactually low HbA1c); iron | | deficiency anemia (artefactually high HbA1c due to enhanced glycation of hemoglobin). | | | + + IRON AND TIBC (11/20/2017 [...] | + + + | Blood | [facility], CORE [address] | | | [place] [address] | + + + from Last 3 Months
--- OUTSIDE RECORDS SUMMARY | 2017-11-23 23:14 | XMS | Encounter Summary ---
Demographics + + + | Address | [address] | | | [place] [address] | + + + | Home Phone | | + + + | Preferred Language | Unknown | + + + | Marital Status | Single | + + + | Christianity Affiliation | PRO | + + + | Race | White | + + + | Ethnic Group | Not or | + + + Author + + + | Author | [facility] | + + + | Organization | [facility] | + + + | Address | Unknown | + + + | Phone | Unavailable | + + + Support + + + + + | Name | Relationship | Address | Phone | + + + + + | KENNY BERRY | ECON | [address] | | | | | [place], | | | | | [place] [address] | | + + + + + | Ellie Vang | ECON | Unknown | | + + + + + Care Team Providers + +------+ + | Care White Sugar Syrup Operator Name | Role | Phone | + +------+ + | Fadi Goodrich DO | PCP | | + +------+ + Reason for Visit + + + | Reason | Comments | + + + | Follow-up visit | | + + + Office Visit - E/M Services (Routine) + +--------+ + + + + | Status | Reason | Specialty | Diagnoses / | Referred By | Referred To | | | | | Procedures | Contact | Contact | + +--------+ + + + + | Authorized | | Cardiology | Diagnoses | Kp, | Tiny, | | | | | Morbid | Fadi Person DO | MD Randell | | | | | obesity | [address] | [address] | | | | | (HCC) Type | [facility] | [place] | | | | | 2 diabetes | [place], | [place], | | | | | mellitus | [place] [address] | [place] | | | | | without | Phone: | [phone] | | | | | complication | [phone] | Phone: | | | | | (HCC) | Fax: | [phone] | | | | | Procedures | [phone] | Fax: | | | | | [place] EST | | [phone] | | | | | PATIENT | | | | | | | LEVEL V | | | + +--------+ + + + + Encounter Details +--------+---------+ + + + | Date | Type | Department | Care Team | Description | +--------+---------+ + + + | 11/20/ | Office | Cardiology | Randell Franks, | Type 2 diabetes | | 2018 | Visit | Preventive at [facility] | [address] | mellitus without | | | | [address] | [facility] | complication, with | | | | Mailcode: CH9A | [place], [place] | long-term current | | | | [facility] | [address] | use of insulin (HCC) | | | | and Healing | [phone] | (Primary Dx); | | | | [place], [place] | | Morbid obesity with | | | | [address] | | BMI of 70 and over, | | | | [phone] | | adult (HCC) | +--------+---------+ + + + Social History [...] + + + + in this encounter Progress Notes Randell Franks MD - 11/20/2017 9:35 AM PDTFormatting of this note may be different fro m the original. Reason for visit: Follow-up T2DM and weight management PCP: Fadi Goodrich DO Patient Active Problem List Diagnosis Date Noted Anasarashmi 11/06/2015 Priority: 1 Acute DVT (deep venous thrombosis) -- left mid & distal femoral vein, and popliteal vei n 11/07/2015 Priority: 2 Overview Note: LE Doppler (Nov 07, 2015 ++ DVT LLE The left mid and distal femoral vein and popliteal vein are noncompressible with hypoech oic clot within them, c/w an. occlusive thrombus seen within the mid and distal femoral vein and popliteal vein. Nonocclusive thrombus in left posterior tibial vein. Bilateral common femoral veins patent. Edema and weight gain 04/14/2013 Priority: 3 Hypoventilation associated with obesity (HCC) 06/16/2013 Priority: 4 AMARA (obstructive sleep apnea) 04/14/2013 Priority: 4 Overview Note: Cannot tolerate CPAP Severe Morbid obesity ([facility]), BMI 88 11/12/2012 Priority: 4 Overview Note: Lifetime max: 495 lbs Phentermine started Type 2 diabetes mellitus ([facility]) 04/14/2013 Priority: 5 Iron deficiency anemia due to chronic blood loss 11/11/2015 Priority: 6 Overview Note: Ferritin 18 on 10/2015 Hypoalbuminemia (no proteinuria, need to rule out synthetic, nutrition, loss) 6 Priority: 6 Hypothyroidism 08/28/2014 Priority: 8 Morbid obesity with BMI of 70 and over, adult ([facility]) 02/02/2017 Chronic diastolic heart failure ([facility]) 02/02/2017 Immobility 02/02/2017 Severe muscle deconditioning 02/02/2017 Personal history of DVT (deep vein thrombosis) 02/02/2017 History of pulmonary embolism 02/02/2017 AMARA treated with BiPAP 02/02/2017 Benign essential HTN 02/02/2017 Diabetes mellitus type 2 without retinopathy ([facility]) 02/02/2017 Hyperlipidemia 02/02/2017 Ventral hernia without obstruction or gangrene 02/02/2017 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 2. The left ventricular cavity size is normal. 3. The LV ejection fraction is normal. 4. The right ventricular size is moderately enlarged. 5. moderately enlarged RV & Moderately reduced RV systolic function, The RV TDI s' velocit y is 9cm/sec * IVC is non-dilated & with normal respiratory variation. 6. There are no prior exams available for comparison. . YO (dyspnea on exertion) 11/06/2015 Diabetes mellitus with insulin therapy (HCC) 12/27/2014 Abdominal pain 02/07/2014 Migraine headache 12/05/2013 Vitamin D deficiency disease 06/16/2013 Intertriginous candidiasis 06/16/2013 HTN (hypertension) 06/16/2013 Skin breakdown 06/16/2013 Anemia 06/16/2013 Decreased mobility 06/16/2013 PCOS (polycystic ovarian syndrome) 06/16/2013 Ventral hernia 06/16/2013 Hernia 11/05/2012 Medications: Current Outpatient Prescriptions Medication Sig ALPRAZolam 1 [...] 1 tablet by mouth once daily CALCIUM CRB&BAD-R3-PNO64-GENIS ORAL Take 2 tablets by mouth two times daily. ergocalciferol (VITAMIN D2) 50,000 unit oral capsule Take 50,000 Units by mouth twice w eekly (on Thursday and ). fentaNYL 25 mcg/hr transdermal patch 72 hour 1 patch every seventy-two hours. FLUoxetine 20 mg oral tablet Take 60 mg by mouth once daily at bedtime. gabapentin 300 mg oral capsule Take 300 mg by mouth four times daily. HYDROcodone-acetaminophen 7.5-500 mg oral tablet Take 1-2 tablets by mouth every four h ours as needed. magnesium oxide 400 mg oral tablet Take [...] Use to brush teeth 2 to 3 mietsh es daily as directed. Do not eat [...] No current facility-administered medications for this visit. S: Elzbieta returns in follow-up of obesity and T2DM. She has remained on her medications in cluding torsemide, phentermine, metformin, a GLP-1 agonist, and insulin for diabetes. She re ports not side effects with continued improved appetite control and CBG's at home in the 120 mg/dL or less range. Her weight has fluctuated since I last saw her due to, she thinks, fluctuations in her flui d status. She reports a new right foot wound that started off as a split in her skin and wi dened and become painful. She has been caring for it routinely. Her jeart failure is manag ed by her batter mixer helper and she was seen by the bariatric surgery group and is now back on tr ack for gastric bypass in the upcoming year. ROS: No CP O: vitals BP 126/70 | Pulse 112 | Ht 1.499 m (4' 11") | Wt 180.3 kg (397 lb 6.4 oz) | SpO2 94% | BMI 80.27 kg/(m^2) PE: Gen: pleasant, NAD, crying and obviously frustrated Abd: Large pendulous pannus which is edematous. Ext: Massive edema bilaterally in her legs. No phill cellulitis noted very tender to touch . Her but are fat, hips and thighs have a characteristic appearance of lipedema with casca ding folds of fat intermixed with what appears to be vascular tissue. Skin: In approximately 3 cm long fissure on plantar surface of her right foot. It is heal ing well with no signs of redness, red streaks, or pus. Labs: None new to review ssessment: 1) HFpEF: This is currently being managed well by her Litigation Partner with diuretics and main tenance of her massive weight loss. Further weight loss following a bariatric procedure rhonda parikh improve this even more. 2) T2 Diabetes: Her A1c had been doing much better now. Will continue present management a nd monitor A1c. 3) Morbid obesity: She has reached maximal medical weight loss ~100 pounds from her baselin e weight. She is now on track for bariatric surgery. We discussed that she will stop phenter mine prior to surgery, but that I would like her to restart it a week or so afterward. 4) Hypothyroidism: TSH stable, will continue to monitor yearly. 5) R foot fissure: She will need to continue wound care and avoid pressure. I recommended options for bandaging to relieve pressure but advised her to seek out the help of a local po diatrist. F/U if the wound worsens 6) LIpedema: Will need liposuction after her RYGB. Plan: 1) Continue healthy diet and activity as tolerated 2) Continue management of her heart failure by her Litigation Partner 3) Check A1c, lipids 4) Await bariatric surgery 5) Continue phentermine 37.5 mg a day 6) Continue wound care, non-pressure ambulation of right foot wound 7) Follow-up 4-6 monthsin this encounter Plan of Treatment +--------+ + [...] Rd | | | | | | [place], [place] | | | | | | [address] | | | | | | [phone] | | | | | | | | +--------+ + + + + as of this encounter Results LIPID LAB - LIPID PROFILE - [...] | + + + | Blood | [facility], LIPID [id number] [facility] | | | [place] [address] | + + + HEMOGLOBIN A1C, BLOOD [...] | + + + | Blood | [facility] SPECIAL IMM + COAG [id number] [facility] | | | [place] [address] | + + + + + | Narrative | + + | Alternate forms of testing such as fructosamine should be considered for | | monitoring fci glycemic control in patients with: Increased red cell turnover, | | certain hemoglobinopathies (e.g., HbS, HbE, HbC and thalassemia syndromes), anemias, | | blood loss, chronic liver disease and hemochromatosis (artefactually low HbA1c); iron | | deficiency anemia (artefactually high HbA1c due to enhanced glycation of hemoglobin). | | | + + in this encounter Visit Diagnoses + + | Diagnosis | + + | Type 2 diabetes mellitus without complication, with long-term current use of insulin | | (HCC) - Primary | + + | Morbid obesity with BMI of 70 and over, adult (HCC) | + +
--- OUTSIDE RECORDS SUMMARY | 2017-11-23 23:14 | XMS | Clinical Summary ---
Demographics + + + | Address | [address] | | | [place] [address] | + + + | Home Phone | | + + + | Preferred Language | Unknown | + + + | Marital Status | | + + + | Sikhism Affiliation | Unknown | + + + | Race | Unknown | + + + | Ethnic Group | Unknown | + + + Author + + + | Author | [facility] | + + + | Organization | [facility] | + + + | Address [...] [address] [place] | ECON | Unknown | + | + + +---------+ + Care Team Providers + +------+ + | Care Railroad Detective Name | Role | Phone | + +------+ + | Fadi Goodrich DO | PP | | + +------+ + Allergies + + + + + + | Active Allergy | Reactions | Severity | Noted | Comments | | | | | Date | | + + + + + + | Amoxicillin | Rash | Medium | 12/25/19 | | | | | | 16 | | + + + + + + | Diphenhydramine | Swelling | Medium | 12/25/19 | | | | | | 16 | | + + + + + + | Bromocriptine | Other (See Comments) | Medium | 12/25/19 | Blood clot and | | | | | 16 | stroke | + + + + + + Current Medications + + +--------+---------+------+------+-------+ | Prescription | Sig. | Disp. | Refills | Star | End | Statu | | | | | | t | Date | s | | | | | | Date | | | + + +--------+---------+------+------+-------+ | insulin | Inject 5 Units into | | | | | Activ | | NPH-insulin regular | the skin 2 (two) | | | | | e | | (NOVOLIN 70/30) | times daily before | | | | | | | (70-30) 100 UNIT/ML | meals. | | | | | | | injection | | | | | | | + + +--------+---------+------+------+-------+ | thyroid (ARMOUR) | Take 30 mg by mouth | | | | | Activ | | 30 MG tablet | every morning before | | | | | e | | | breakfast. | | | | | | + + +--------+---------+------+------+-------+ | FLUoxetine | Take 60 mg by mouth | | | | | Activ | | (PROZAC) 20 MG | daily. | | | | | e | | capsule | | | | | | | + + +--------+---------+------+------+-------+ | gabapentin | Take 300 mg by mouth | | | | | Activ | | (NEURONTIN) 300 MG | 4 (four) times | | | | | e | | capsule | daily. | | | | | | + + +--------+---------+------+------+-------+ | Magnesium 400 MG | Take 1 capsule by | | | | | Activ | | CAPS | mouth daily. | | | | | e | + + +--------+---------+------+------+-------+ | metFORMIN | Take 1,000 mg by | | | | | Activ | | (GLUCOPHAGE) 1000 MG | mouth 2 (two) times | | | | | e | | tablet | daily with meals. | | | | | | + + +--------+---------+------+------+-------+ | OLANZapine | Take 30 mg by mouth | | | | | Activ | | (ZYPREXA) 15 MG | nightly. | | | | | e | | tablet | | | | | | | + + +--------+---------+------+------+-------+ | potassium chloride | Take 60 mEq by mouth | | | | | Activ | | SA (WANDA FARRELL) | 4 (four) times | | | | | e | | 20 MEQ tablet | daily. | | | | | | + + +--------+---------+------+------+-------+ | topiramate | Take 50 mg by mouth | | | | | Activ | | (TOPAMAX) 200 MG | 2 (two) times daily. | | | | | e | | tablet | | | | | | | + + +--------+---------+------+------+-------+ | traZODone | Take 150 mg by mouth | | | | | Activ | | (DESYREL) 150 MG | nightly. | | | | | e | | tablet | | | | | | | + + +--------+---------+------+------+-------+ | ascorbic acid | Take 500 mg by mouth | | | | | Activ | | (VITAMIN C) 500 MG | daily. | | | | | e | | tablet | | | | | | | + + +--------+---------+------+------+-------+ | ergocalciferol | Take 50,000 Units by | | | | | Activ | | (DRISDOL) [address] | mouth twice a week. | | | | | e | | UNITS capsule | | | | | | | + + +--------+---------+------+------+-------+ | ALPRAZolam (XANAX) | Take 1 mg by mouth | | | | | Activ | | 1 MG tablet | nightly as needed | | | | | e | | | for Sleep. | | | | | | + + +--------+---------+------+------+-------+ | Insulin Degludec | Inject 68 Units into | | | | | Activ | | (TRESIBA FLEXTOUCH | the skin nightly. | | | | | e | | SC) | | | | | | | + + +--------+---------+------+------+-------+ | senna-docusate | Take 1 tablet by | | | | | Activ | | (PERICOLACE) 8.6-50 | mouth 2 (two) times | | | | | e | | MG per tablet | daily. | | | | | | + + +--------+---------+------+------+-------+ | spironolactone | Take 50 mg by mouth | | | | | Activ | | (ALDACTONE) 50 MG | daily. | | | | | e | | tablet | | | | | | | + + +--------+---------+------+------+-------+ | aspirin 81 MG EC | Take 81 mg by mouth | | | | | Activ | | tablet | daily with | | | | | e | | | breakfast. | | | | | | + + +--------+---------+------+------+-------+ | fentaNYL | Place 1 patch onto | | | | | Activ | | (DURAGESIC) 25 | the skin every third | | | | | e | | MCG/HR | day. | | | | | | + + +--------+---------+------+------+-------+ | torsemide | Take 100 mg by mouth | | | | | Activ | | (DEMADEX) 100 MG | 2 (two) times | | | | | e | | tablet | daily. | | | | | | + + +--------+---------+------+------+-------+ | piroxicam | Take 10 mg by mouth | | | | | Activ | | (FELDENE) 10 MG | nightly. | | | | | e | | capsule | | | | | | | + + +--------+---------+------+------+-------+ | phentermine | Take 37.5 mg by | | | | | Activ | | (ADIPEX-P) 37.5 MG | mouth every morning | | | | | e | | tablet | before breakfast. | | | | | | + + +--------+---------+------+------+-------+ | Calcium | Take by mouth. | | | | | Activ | | Citrate-Vitamin D | | | | | | e | | (CALCIUM CITRATE + D | | | | | | | | PO) | | | | | | | + + +--------+---------+------+------+-------+ | pseudoephedrine | Take 120 mg by mouth | | | | | Activ | | (SUDAFED) 120 MG 12 | every 12 (twelve) | | | | | e | | hr tablet | hours. | | | | | | + + +--------+---------+------+------+-------+ | Etonogestrel | Inject into the | | | | | Activ | | (NEXPLANON) 68 MG | skin. | | | | | e | | IMPL | | | | | | | + + +--------+---------+------+------+-------+ | ondansetron | Take 4 mg by mouth 3 | | | | | Activ | | (ZOFRAN) 4 MG tablet | (three) times daily | | | | | e | | | as needed for | | | | | | | | Nausea. | | | | | | + + +--------+---------+------+------+-------+ | atenolol | Take 1 tablet by | 30 | 11 | 01/24 | 01/24 | Activ | | (TENORMIN) 25 MG | mouth nightly. | tablet | | 10/13 | 10/13 | e | | tablet | | | | 17 | 18 | | + + +--------+---------+------+------+-------+ Active Problems + + + | Problem | Noted Date | + + + | Acute right-sided low back pain without sciatica | 10/20/2016 | + + + | DM (diabetes mellitus) | 05/09/2016 | + + + + + | Last Assessment & Plan: DM2, managed by PCP. | + + +-------+ + | Edema | 05/08/2016 | +-------+ + + + | Last Assessment & Plan: Edema. 41yo WF, with morbid | | obesity, she is enrolled in the [facility] bariatric program. She has | | lost approximately 50 pounds, states that she needs to lose more | | weight before she can have her surgery that she is hoping to | | have. Recently seen in the emergency room, right leg discomfort. | | She does have changes of DJD, but there is no fracture or | | dislocation. Negative for DVT. Currently being treated with | | nonsteroidal anti-inflammatory agents and narcotics. For the | | peripheral edema, she's been using diuretics for some time. Her | | echocardiogram shows normal LV systolic function. There is | | possible she may have some degree of diastolic abnormality or | | perhaps transient RV failure, but this is not apparent on her | | echo. Apparently she has sleep apnea, is using the BiPAP | | machine. Tolerating current medications. No changes in therapy. | | She continues her diuretic therapy for peripheral edema, | | symptomatic relief.Last Cath: [facility]Last Echo, 01/02/2016 ([facility]): TDS, cardiac chamber dimensions grossly NML, LVEF | | >70%, no /AI, trace TR.Last Stress Test: naECG, 02/15/2016: NSR, | | 96bpm.Venous US, right leg, 04/28/2016: No evidence of DVT.Lab, | | 04/28/2163: Liver enzymes NML,K: 3.4, BUN/Cr: 14/0.8, glu: 188 | | WBC: 10.9, H/H: 12.3/39.4, plt: 249 | + + + + + | Hypokalemia | 04/21/2016 | + + + | Hyperuricemia | 04/21/2016 | + + + | Morbid obesity with alveolar hypoventilation (HCC) | 04/21/2016 | + + + + + | Last Assessment & Plan: [facility] Bariatric Program, has lost | | 50lbs. | + + + + + | AMARA treated with BiPAP | 04/21/2016 | + + + + + | Last Assessment & Plan: Sleep apnea, on BiPAP. | + + + + + | Chronic diastolic heart failure (HCC) | 12/25/2015 | + + + + + | Last Assessment & Plan: Heart failure of preserved EF- recent | | DVT/PE/Cellulitis/ morbid obesityPickwickian syndrome Recent | | admission to [facility] for 100lb weight | | gain- DC on diuresis on 03/06/2016- she feel improvedShe was on | | Metolazone and Torsemide prior to hospitalization- both have | | better bioavailability than lasix in gut edema but she retained | | 100lbs - how ever she is currently on only Torsemide 100mg Q12hrs | | started in [place] and her weight been stable sinceShyesenia has no | | other complaints.She is pending to see NephrologistEcho | | 02/16/2016([facility])- Normal LV systolic function, mildly | | dilated RVContinue Torsemide and she will continue to monitor | | weights at homeF/u in 6 weeks.She will continue to monitor | | weights, BP, HR at home. Discussed with her about CHF- | | management- importance of weight management, Bp management, Na | | restriction.Continue K and Mg supplementsGrace is aware I am going | | on a vacation starting January 01- she will come to ER in case of | | worsening symptoms and will see me first week of January. | + + Encounters +--------+ + + + + | Date | Type | Specialty | Care Team | Description | +--------+ + + + + | 10/14/ | Office | | Dharmesh Escobar, | Hypokalemia (Primary | | 2018 | Visit | | [employer] | Dx) | +--------+ + + + + | 10/09/ | Documentati | | Michelle Daley CMA | Labs Only ([facility] | | 2017 | on Only | | | Labs dated | | | | | | 10/07/2017) | +--------+ + + + + | 10/09/ | Orders Only | | Michelle Daley CMA | Edema, unspecified | | 2017 | | | | type; Hyperuricemia; | | | | | | Hypokalemia | +--------+ + + + + from Last 3 Months Family History + + +------+ + | Medical History | Relation | Name | Comments | + + +------+ + | Heart disease | Father | | | + + +------+ + | Heart disease | Maternal | | | | | Grandmoth | | | | | er | | | + + +------+ + | Diabetes type II | Mother | | | + + +------+ + + +------+ + + | Relation | Name | Status | Comments | + +------+ + + | Father | | | | | | | (Age | | | | | 69) | | + +------+ + + | Maternal Grandfather | | | | + +------+ + + | Maternal Grandmother | | Alive | | + +------+ + + | Mother | | Alive | | + +------+ + + | Paternal Grandfather | | | | + +------+ + + | Paternal Grandmother | | | | + +------+ + [...] + + + | Respiratory Rate | 19 | 05/07/2016 11:14 AM PDT | + + + + [...] PM PDT | + + + + Plan of Treatment + + + + + | Health Maintenance | Due Date | Last Done | Comments | + + + + + | Diabetic Eye Exam | | | | | | 7 | | | + + + + + | Diabetic Foot Exam | | | | | | 7 | | | + + + + + | Hemoglobin A1c | | | | | | 7 | | | + + + + + | Microalbumin | | | | | Screening | 7 | | | + + + + + | Vaccine: | | | | | Dtap/Tdap/Td (1 - | 6 | | | | Tdap) | | | | + + + + + | Vaccine: | | | | | Pneumococcal 19-64 | 6 | | | | (PPSV23 only) Medium | | | | | Risk (1 of 1 - | | | | | PPSV23) | | | | + + + + + | Cervical Cancer | | | | | Screening (Pap) | 8 | | | + + + + + | Statin Therapy | | | | | (optimal intensity) | 6 | | | + + + + + | Vaccine: Influenza | | | | | (Season Ended) | 8 | | | + + + + + Results Urinalysis (reflex to microscopic/reflex to culture) (10/07/2017 12:50 AM) + + + + | Component | Value | Ref Range | + + + + | COLOR UA | Yellow | | + + + + | CLARITY | Clear | | + + + + | SPECIFIC | 1.019 | 1.005 - 1.030 | | GRAVITY,URINE | | | + + + + | LEUKOCYTE ESTERASE | Negative | | + + + + | NITRITE | Negative | | + + + + | UROBILINOGEN | Normal | | + + + + | PROTEIN | Negative | | + + + + | BLOOD | Negative | | + + + + | KETONES | Negative | | + + + + | BILIRUBIN | Negative | | + + + + | GLUCOSE | Negative | | + + + + + + + | Specimen | Performing Laboratory | + + + | | [facility] [address], [facility] [address] [place], [place] | | | [address] | + + + + + | Narrative | + + | Epithelial: Squamous 4+ | + + Protein / creatinine ratio, urine (10/07/2017 12:50 AM) + + + + | Component | Value | Ref Range | + + + + | UR | 154.4 (A) | 0 - 150 | | PROTEIN/CREATININE | | | + + + + + + + | Specimen | Performing Laboratory | + + + | Urine | [facility], [address], [place] | | | [address] | + + + CBC W/Auto Diff (Reflex to Manual) (10/07/2017 12:50 AM) + + + + | Component | Value | Ref Range | + + + + | WBC | 10.9 | 4.5 - 11.0 10^3/mL | + + + + | RBC | 4.79 | 3.8 - 5.1 10^6/ L | + + + + | HGB | 12.8 | 12 - 16 g/dL | + + + + | HCT | 39.8 | 35 - 45 % | + + + + | MCV | 83.1 | 81 - 99 fL | + + + + | MCH | 27 | 27 - 33 pg | + + + + | MCHC | 32 | 30 - 36 g/dL | + + + + | PLT | 260 | 140 - 440 K/ L | + + + + | RDW SD | 17.3 (A) | 10.5 - 15.0 % | + + + + | MPV | | fL | + + + + | DIFF TYPE | | | + + + + | NEUTROPHILS | | % | + + + + | LYMPHOCYTES | | % | + + + + | MONOCYTES | | % | + + + + | EOSINOPHILS | | % | + + + + | BASOPHILS | | % | + + + + | NEUTROPHILS ABS | | / L | + + + + | LYMPHOCYTES ABS | | / L | + + + + | MONOCYTES ABS | | / L | + + + + | EOSINOPHILS ABS | | / L | + + + + | BASOPHILS ABS | | / L | + + + + + + + | Specimen | Performing Laboratory | + + + | Blood | [facility] [address] [place] [address], [place] | | | [address] | + + + Uric acid (10/07/2017 12:50 AM) + +---------+ + | Component | Value | Ref Range | + +---------+ + | URIC ACID | 8.7 (A) | 2.3 - 6.6 | + +---------+ + + + + | Specimen | Performing Laboratory | + + + | Blood | [facility] [address] [place] [address] [place] | | | [address] | + + + PTH intact no calcium (10/07/2017 12:50 AM) + + + + | Component | Value | Ref Range | + + + + | PTH INTACT NO | 67.78 (A) | 15 - 65 pg/mL | | CALCIUM | | | + + + + + + + | Specimen | Performing Laboratory | + + + | Blood | [facility] [address], [facility] [address] [place], [place] | | | [address] | + + + Magnesium (10/07/2017 12:50 AM) + +-------+ + | Component | Value | Ref Range | + +-------+ + | MAGNESIUM | 1.8 | 1.7 - 2.5 mg/dL | + +-------+ + + + + | Specimen | Performing Laboratory | + + + | Blood | [facility] [address] [place] [address], [address], [place] | | | [address] | + + + Renal function panel (10/07/2017 12:50 AM) + +---------+ + | Component | Value | Ref Range | + +---------+ + | GLUCOSE | 105 (A) | 70 - 100 mg/dL | + +---------+ + | BUN | 17 | 6 - 23 mg/dL | + +---------+ + | CREATININE | 0.88 | 0.6 - 1.35 mg/dL | + +---------+ + | PHOSPHORUS | | mg/dL | + +---------+ + | Albumin | 3.5 | 3.5 - 5.0 | + +---------+ + | SODIUM | 141 | 132 - 143 mmol/L | + +---------+ + | POTASSIUM | 4.4 | 3.6 - 5.1 mmol/L | + +---------+ + | CHLORIDE | 104 | 95 - 112 mmol/L | + +---------+ + | CO2 | 22 | 19 - 31 mmol/L | + +---------+ + | ANION GAP AGAP | 19.4 | 7 - 21 mmol/L | + +---------+ + | GFR MDRD Non Af Amer | | | + +---------+ + | Phosphorus,Inorganic | 2.6 | 2.5 - 5.0 | + +---------+ + | BUN/CREAT | 19.3 | 6.0 - 28.6 | + +---------+ + | CALCIUM | 9.1 | 8.4 - 10.2 mg/dL | + +---------+ + | EGFR | 71 | mg/dL | + +---------+ + + + + | Specimen | Performing Laboratory | + + + | Blood | [facility] [address] [place] [address] | | | [address] | + + + from Last 3 Months Insurance + +--------+ +------+-------+ + | Payer | Benefi | Subscriber | Type | Phone | Address | | | t Plan | ID | | | | | | / | | | | | | | Group | | | | | + +--------+ +------+-------+ + | MEDICAID | [employer] | xxxxxxxx | | | [address] | | | N | | | | [place] | | | [place] | | | | [address] | | | [employer] | | | | | + +--------+ +------+-------+ + + +--------+ +--------+ + + | Guarantor Name | Accoun | Relation to | Date | Phone | Billing Address | | | t Type | Patient | of | | | | | | | | | | + +--------+ +--------+ + + | DYLAN CRISTINA | Person | Self [birth year] Home: | [address] | | | al/Fam | | 1974 | [phone] [address] [place] | | | [place] | | | [phone] | + +--------+ +--------+ + +
--- OUTSIDE RECORDS SUMMARY | 2017-11-23 23:14 | XMS | Encounter Summary ---
Demographics + + + | Address | [address] | | | [place] [address] | + + + | Home Phone | | + + + | Preferred Language | Unknown | + + + | Marital Status | | + + + | Adventism Affiliation | Unknown | + + + | Race | Unknown | + + + | Ethnic Group | Unknown | + + + Author + + + | Author | [facility] | + + + | Organization | [facility] | + + + | Address [...] Team Providers + +------+ + | Care Reroller Hand Name | Role | Phone | + +------+ + | Fadi Goodrich DO | PCP | | + +------+ + Encounter Details +--------+ + + + + | Date | Type | Department | Care Team | Description | +--------+ + + + + | 03/16/ | Orders Only | [facility] | Michelle Daley CMA | Edema, unspecified | | 2017 | | [place] [address] | | type; Hyperuricemia; | | | | [address] | | Hypokalemia | | | | [place] [address] | | | | | | [phone] | | | +--------+ + + + [...] Not on fileas of this encounter Results Protein / creatinine ratio, urine (10/07/2017 12:50 AM) + + + + | Component | Value | Ref Range | + + + + | UR | 154.4 (A) | 0 - 150 | | PROTEIN/CREATININE | | | + + + + + + + | Specimen | Performing Laboratory | + + + | Urine | [facility] [address] [place] [address] [address] [place] | | | [address] | + + + Renal function panel [...] + | Blood | [facility] [address], [facility] [address] [place], [place] | | | [address] | + + + Magnesium (10/07/2017 12:50 AM) + +-------+ + | Component | Value | Ref Range | + +-------+ + | MAGNESIUM | 1.8 | 1.7 - 2.5 mg/dL | + +-------+ + + + + | Specimen | Performing Laboratory | + + + | Blood | [facility] [address], [address] [place], [place] | | | [address] | + + + CBC W/Auto Diff [...] + + | Blood | [facility] [address] [place] [address] [place] | | | [address] | + + + Urinalysis (reflex to microscopic/reflex to culture) (10/07/2017 [...] + + | | [facility] [address] [place] | | | [address] | + + + + + | Narrative | + + | Epithelial: Squamous 4+ | + + PTH intact no calcium (10/07/2017 [...] + + | Blood | [facility] [address] [place] [address] | | | [address] | + + + in this encounter Visit Diagnoses + + | Diagnosis | + + | Edema, unspecified type | + + | Hyperuricemia | + + | Other abnormal blood chemistry | + + | Hypokalemia | + + | Hypopotassemia | + +"
--- OUTSIDE RECORDS SUMMARY | 2017-11-23 23:14 | XMS | Encounter Summary ---
Demographics + + + | Address | [address] | | | [place] [address] | + + + | Home Phone | | + + + | Preferred Language | Unknown | + + + | Marital Status | Single | + + + | Religion Affiliation | PRO | + + + | Race | White | + + + | Ethnic Group | Not or | + + + Author + + + | Author | [facility] | + + + | Organization | [facility] | + + + | Address | Unknown | + + + | Phone | Unavailable | + + + Support + + + + + | Name | Relationship | Address | Phone | + + + + + | KENNY BERRY | ECON | [address] | | | | | [place], | | | | | [place] [address] | | + + + + + | Ellie Vang | ECON | Unknown | | + + + + + Care Team Providers + +------+ + | Care Technical Services Coordinator Name | Role | Phone | + +------+ + | Fadi Goodrich DO | PCP | | + +------+ + Encounter Details +--------+ + + + + | Date | Type | Department | Care Team | Description | +--------+ + + + + | 10/27/ | Abstract | [facility] | Clinic, Surgery | | | 2018 | | Center at [facility] 6th | | | | | | Floor [address] | | | | | | [place] Mailcode: CH4S | | | | | | [facility] | | | | | | and [place], [address]th | | | | | | floor [place], [place] | | | | | | [address] | | | | | | [phone] | | | +--------+ + + + [...] [address] | | | | | | [place] | | | | | | [address] | | | | | | [phone] | | | | | | | | +--------+ + + + + as of this encounter Visit Diagnoses Not on filein this encounter"
--- OUTSIDE RECORDS SUMMARY | 2017-11-23 23:15 | XMS | Encounter Summary ---
Demographics + + + | Address | [address] | | | [place] [address] | + + + | Home Phone | | + + + | Preferred Language | Unknown | + + + | Marital Status | | + + + | Alevism Affiliation | Unknown | + + + | Race | Unknown | + + + | Ethnic Group | Unknown | + + + Author + + + | Author | [facility] | + + + | Organization | [facility] | + + + | Address [...] Team Providers + +------+ + | Care C4 Planner Name | Role | Phone | + [...] Edema, unspecified | | 2017 | | [place] [address] | | type; Hyperuricemia; | | | | [address] | | Hypokalemia | | | | [place] [address] | | | | | | [phone] | | | +--------+ + + + [...] + + | Urine | [facility] [address] [place] [address] [address] [place] | | | [address] | + + + Renal function panel [...] + | Blood | [facility] [address], [place] [address] [place], [place] | | | [address] | + + + Magnesium (10/07/2017 12:50 AM) + +-------+ + | Component | Value | Ref Range | + +-------+ + | MAGNESIUM | 1.8 | 1.7 - 2.5 mg/dL | + +-------+ + + + + | Specimen | Performing Laboratory | + + + | Blood | [facility] [address] [place], [place] | | | [address] | + + + CBC W/Auto Diff [...] + + | Blood | [facility] [address] [place] [address] [place] | | | [address] | + + + Urinalysis (reflex to [...] + + | | [facility] [address] [place] | | | [address] | + + + + + | [...] + | Blood | [facility] [address] [place] [address] | | | [address] | + + + in this encounter Visit Diagnoses + + | Diagnosis | + + | Edema, unspecified type | + + | Hyperuricemia | + + | Other abnormal blood chemistry | + + | Hypokalemia | + + | Hypopotassemia | + +"
--- OUTSIDE RECORDS SUMMARY | 2017-11-23 23:15 | XMS | Encounter Summary ---
Demographics + + + | Address | [address] | | | [place] [address] | + + + | Home Phone | | + + + | Preferred Language | Unknown | + + + | Marital Status | | + + + | Restoration Affiliation | Unknown | + + + | Race | Unknown | + + + | Ethnic Group | Unknown | + + + Author + + + | Author | [facility] | + + + | Organization | [facility] | + + + | Address [...] Team Providers + +------+ + | Care Trustee Of Estate Name | Role | Phone | + [...] 10/07/2017) | | | | [place] [address] | | | | | | [phone] | | | +--------+ + + + [...] + | Blood | [facility] [address] [facility] [address] [place] | | | [address] | + + + in this encounter Visit Diagnoses Not on filein this encounter"
--- OUTSIDE RECORDS SUMMARY | 2017-11-23 23:15 | XMS | Encounter Summary ---
Demographics + + + | Address | [address] | | | [place] [address] | + + + | Home Phone [...] Author + + + | Author | [facility] | + + + | Organization | [facility] | + + + | Address | Unknown | + + + | Phone | Unavailable | + + + Support + + + + + | Name | Relationship | Address | Phone | + + + + + | KENNY BERRY | ECON | [address] | | | | | [place], | | | | | [place] [address] | | + + + + + | Ellie Vang | ECON | Unknown | | + + + + + Care Team Providers + +------+ + | Care Indirect Sales Exec Name | Role | Phone | + +------+ + | Fadi Godorich DO | PCP | | + +------+ [...] | 2 diabetes | JEAN, | [place], | | | | | mellitus | [place] [address] | [place] | | | | | without | Phone: | [address] | | | | | complication | [phone] | Phone: | | | | | (HCC) | Fax: | [phone] | | | | | Procedures | [phone] | Fax: | | | | | ID EST | | [phone] | | | | | PATIENT | [...] | 2018 | Visit | Preventive at [facility] | [address] | mellitus without | | | | [address] | [facility] | complication, with | | | | Mailcode: CH9A | [place], [place] | long-term current | | | | [facility] | [address] | use of insulin (HCC) | | | | and Healing | [phone] | (Primary Dx); | | | | [place], [place] | | Morbid obesity with | | | | [address] | | BMI of 70 and over, | | | | [phone] | | adult (HCC) | +--------+---------+ + [...] Note: Cannot tolerate CPAP Severe Morbid obesity ([facility]), BMI 88 11/12/2012 Priority: 4 Overview Note: Lifetime max: 495 lbs Phentermine started Type 2 diabetes mellitus ([facility]) 04/14/2013 Priority: 5 Iron deficiency anemia due to chronic blood loss 11/11/2015 Priority: 6 Overview Note: Ferritin 18 on 10/2015 Hypoalbuminemia (no proteinuria, need to rule out synthetic, nutrition, loss) 6 Priority: 6 Hypothyroidism 08/28/2014 Priority: 8 Morbid obesity with BMI of 70 and over, adult ([facility]) 02/02/2017 Chronic diastolic heart failure ([facility]) 02/02/2017 Immobility 02/02/2017 Severe muscle deconditioning 02/02/2017 Personal history of DVT (deep vein thrombosis) 02/02/2017 History of pulmonary embolism 02/02/2017 AMARA treated with BiPAP 02/02/2017 Benign essential HTN 02/02/2017 Diabetes mellitus type 2 without retinopathy ([facility]) 02/02/2017 Hyperlipidemia 02/02/2017 Ventral hernia without obstruction [...] 1 tablet by mouth once daily CALCIUM CRB&YES-G9-BXA33-GENIS ORAL Take 2 tablets by mouth two [...] jeart failure is manag ed by her economic development manager and she was seen by the bariatric [...] is currently being managed well by her Flat Surfacer with diuretics and main tenance of her [...] management of her heart failure by her Flat Surfacer 3) Check A1c, lipids 4) Await bariatric [...] Rd | | | | | | [place], [place] | | | | | | [address] | | | | | | [phone] | | | | | | | [...] | + + + | Blood | [facility] SERVICES, LIPID [address] [facility] | | | [place] [address] | + + + HEMOGLOBIN A1C, BLOOD [...] | + + + | Blood | [facility], SPECIAL IMM + COAG [address] [facility] | | | [place] [address] | + + + + + | Narrative | + + | Alternate forms of testing such as fructosamine should be considered for | | monitoring care home glycemic control in patients with: Increased red [...]
--- OUTSIDE RECORDS SUMMARY | 2017-11-23 23:15 | XMS | Encounter Summary ---
Demographics + + + | Address | [address] | | | [place] [address] | + + + | Home Phone | | + + + | Preferred Language | Unknown | + + + | Marital Status | Single | + + + | Moravian Affiliation | PRO | + + + | Race | White | + + + | Ethnic Group | Not or | + + + Author + + + | Author | [facility] | + + + | Organization | [facility] | + + + | Address | Unknown | + + + | Phone | Unavailable | + + + Support + + + + + | Name | Relationship | Address | Phone | + + + + + | KENNY BERRY | ECON | [address] | | | | | [place], | | | | | [place] [address] | | + + + + + | Ellie Vang | ECON | Unknown | | + + + + + Care Team Providers + +------+ + | Care Blanket Folder Name | Role | Phone | + [...] | failure | [address] | PA[address] | | | | | Procedures | Giles Davis | [address] | | | | | CONSULT TO | Lesly Gutiérrez | [place], [place] | | | | | CAR | [place] | [address] | | | | | PREVENTATIVE | [address] | Phone: | | | | | [facility] - | Phone: | [phone] | | | | | LIPIDS | [phone] | Fax: | | | | | | Fax: | [phone] | | | | | | [phone] | | + +--------+ + + + + Encounter Details +--------+---------+ + + + | Date | Type | Department | Care Team | Description | +--------+---------+ + + + | 09/11/ | Office | Cardiology | Olga Lidia Montanez, | Morbid obesity with | | 2017 | Visit | Preventive at [facility] | [address] | BMI of 70 and over, | | | | [address] | [address] | adult (HCC) (Primary | | | | Mailcode: CH9A | [place], [place] | Dx) | | | | [facility] | [address] | | | | | and Healing | | | | | | [place], [place] | | | | | | [address] | | | | | | [phone] | | | +--------+---------+ + + + [...] 09/11/2017 Dietitian: Olga Lidia Montanez RD, LD [facility] Bariatric department (to reschedule classes): [phone] Goals: 1. Try to stop buying Pop-Tarts 2. Replace afternoon snack (think of this as lunch) with vegetables or fruit -cucumbers, carrots, broccoli, cauliflower, etc. -try making ranch dip w/ nonfat plain yogurt (regular or New Zealander) (or mix yogurt w/ salsa; o r chipotle hot sauce & nenana juice) 3. Snack ideas: -fruit -vegetables (with hummus or yogurt dip) -New Zealander yogurt - light (have w/ fruit if you're still hungry) -applesauce - unsweetened, w/ lowfat string cheese -1/4 cup nuts -lowfat string cheese -low-fat or non-fat cottage cheese w/ tomatoes 4. Aim for 60-80 grams of protein a day (see list) 5. Add New Zealander yogurt to breakfast Heart Protection Kitchen from [facility] Healthy eating made simple. What: FREE heart-healthy cooking demonstrations led by guest laborer vegetable farm and nutrition experts. Samples are provided! Where: [facility] ([facility]), September, 2nd floor teaching kitchen When: All classes from 11:00am-12:00pm ? October 12 (led by Dr. Paulino Carreno MD) Please contact Keerthi Boyer at [phone] or email at [email or web address] for information on upcoming classes and to register. Space is limited - reserve your seat today! Want more info on what to eat? Watch the Omni[employer] video, "Healthy Eating 101," at www.giftee/watch?[email or web address] in this encounter Progress Notes Olga Lidia Montanez, RD - 09/11/2017 2:30 PM PSTFormatting of this note may be different from the original. [facility] Prevent[facility] Cardiology, Nutrition Consultation Referring provider: Dr. Randell Franks MD Referring diagnosis: obesity, HF, DM2 Visit type: Initial; bgzs-zs-rrqk visit with patient Questions/Information desired today: Hoping [...] restarting the bariatric program; getting PT in [place] & has nutrition classes scheduled. Still has bariatric notebooks at home. Per Mystery Science message from Dr. Pandey 09/10/17: "Just tell [...] HTN Diabetes mellitus type 2 without retinopathy ([facility]) Hyperlipidemia Ventral hernia without obstruction or gangrene [...] milk (2% at 's) (8-10 oz/d) At [facility]: B: cereal (< 170 kcal) & 1% milk; occ w/ applesauce or New Zealander yogurt No L S (3pm): pop-tart or [...] it's too expensive. Occ fruit bowls from [facility]. Vegetables: every day w/ dinner - usually [...] in PT 2x/week for bariatric program (in [place]) UBW: 385-391 lbs Max weight: 529 lbs Weight history: lost from 495 lbs to 383 lbs in 8688-0584 on Atkins diet ANTHROPOMETRICS: Height: Ht Readings from Last 1 Encounters: 09/11/17 1.549 m (5' 1") Weight: Wt Readings from Last 1 Encounters: 09/11/17 176.5 kg (389 lb 3.2 oz) 11/28/16 179.443 kg (395 lb 10 oz) Body mass index is 73.54 kg/m. 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 Currently eating energy-dense/nurient-poor foods in [...] of protein a day - add light New Zealander yogurt to breakfast; include lean protein with PM snack/lunch 3. D/c carbonated beverages (e.g., diet soda); replace with water, Crystal Light, diet deca f tea, or other calorie-free still beverage Contact information was provided; call or send Mystery Science message to dietitian with any questi ons. [...] Rd | | | | | | [place], [place] | | | | | | [address] | | | | | | [phone] | | | | | | | | +--------+ + + + + as of this encounter Visit Diagnoses + + | Diagnosis | + + | Morbid obesity with BMI of 70 and over, adult (HCC) - Primary | + +
--- OUTSIDE RECORDS SUMMARY | 2017-11-23 23:15 | XMS | Encounter Summary ---
Demographics + + + | Address | [address] | | | [place] [address] | + + + | Home Phone | | + + + | Preferred Language | Unknown | + + + | Marital Status | Single | + + + | Mandaen Affiliation | PRO | + + + | Race | White | + + + | Ethnic Group | Not or | + + + Author + + + | Author | [facility] | + + + | Organization | [facility] | + + + | Address | Unknown | + + + | Phone | Unavailable | + + + Support + + + + + | Name | Relationship | Address | Phone | + + + + + | KENNY BERRY | ECON | [address] | | | | | [place], | | | | | [place] [address] | | + + + + + | Ellie Vang | ECON | Unknown | | + + + + + Care Team Providers + +------+ + | Care Floor Finisher Helper Name | Role | Phone | + [...] | Pain | Diagnoses | Saraher, | Forming Operator Psych | | | | Management | Morbid | KAIN Bruner | [facility] [address] | | | | | obesity with | [address] | | | | | BMI of 70 | [address] | Mail Code: | | | | | and over, | [place], [place] | [address] | | | | | adult ([facility]) | [address] | for Health | | | | | Procedures | Phone: | and Healing, | | | | | CONSULT TO | [phone] | 15th Floor | | | | | PAIN | Fax: | [place], [place] | | | | | MANAGEMENT | [phone] | [address] | | | | | [place] | | Phone: | | | | | PSYCHIATRIC | | [phone] | | | | | DIAGNOSTIC | | Fax: | | | | | EVAL, NO MED | | [phone] | | | | | [facility] | | | | | | | PSYCH TSTNG | | | | | | | PSYCH/PHYS | | | +--------+---------+ + + + + Encounter Details +--------+---------+ + + + | Date | Type | Department | Care Team | Description | +--------+---------+ + + + | 10/02/ | Office | [facility] | Leslie Mistry, | Morbid obesity | | 2018 | Visit | 15th Floor [address] | PhD [address] [facility] | ([facility]); Bipolar | | | | [address] | [address] | affective disorder, | | | | Code: [address] | [place], [place] | remission status | | | | for Health and | [address] | unspecified ([facility]); | | | | Healing, 15th Floor | [phone] | BMI 60.0-69.9, adult | | | | [place], [place] | | ([facility]); Anxiety | | | | [address] | | | | | | [phone] | | | +--------+---------+ + + + [...] Name: Elzbieta Cristina : 1975 Medical Record: [id number] Age: 42 y.o. Weight today, per patient report: 305 lbs Weight on 09/11/17: 389, BMI 73.54 Identifying Information: Elzbieta Cristina is a 42 y.o. female who lives with her mother in [place], [place]. She was referred for psychological evaluation [...] of cereal with skim milk and a armenian yogurt L: white bread and cheese and [...] Social History: Elzbieta Cristina was born in [place] and lived with her mother and sister. [...] time I spent was approximately 60 minutes esme-qi-vspe with the patient and jennifera delontey 2 hours of kqc-ygps-ew-face testing, interpreting and synthesizing results. Leslie Mistry, PhD Clinical Psychologist [facility] [address] [facility], 15th [place] [address] gx this encounter Plan of Treatment +--------+ + [...] Rd | | | | | | [place], [place] | | | | | | [address] | | | | | | [phone] | | | | | | | [...]
--- OUTSIDE RECORDS SUMMARY | 2017-11-23 23:15 | XMS | Clinical Summary ---
Demographics + + + | Address | [address] | | | [place] [address] | + + + | Home Phone | | + + + | Preferred Language | Unknown | + + + | Marital Status | | + + + | Buddhism Affiliation | Unknown | + + + | Race | Unknown | + + + | Ethnic Group | Unknown | + + + Author + + + | Author | [facility] | + + + | Organization | [facility] | + + + | Address [...] Team Providers + +------+ + | Care Drafting Detailer Name | Role | Phone | + [...] | | | Activ | | (DRISDOL) [address] | mouth twice a week. | | [...] | obesity, she [facility]. She has | | lost [...] obesityPickwickian syndrome Recent | | admission to [facility] for 100lb weight | | gain- DC on diuresis on 03/06/2016- she feel improvedShe was on | | Metolazone and Torsemide prior to hospitalization- both have | | better bioavailability than lasix in gut edema but she retained | | 100lbs - how ever she is currently on only Torsemide 100mg Q12hrs | | started in [place] and her weight been stable sinceShyesenia has no | | other complaints.She is pending to see NephrologistEcho | | 02/16/2016([employer])- Normal LV systolic function, mildly | | [...] | | 2018 | Visit | | LIFESTYLE BLOCK FARMER | Dx) | +--------+ + + + [...] + + | | [facility] [address], [facility] [address] [place], [place] | | | [address] | + + + + + | [...] | + + + | Urine | [address], [address], [place] | | | [address] | + + + CBC W/Auto Diff [...] + + | Blood | [facility] [address] [place] [address], [place] | | | [address] | + + + Uric acid (10/07/2017 12:50 AM) + +---------+ + | Component | Value | Ref Range | + +---------+ + | URIC ACID | 8.7 (A) | 2.3 - 6.6 | + +---------+ + + + + | Specimen | Performing Laboratory | + + + | Blood | [facility] [address] [place] [address] [place] | | | [address] | + + + PTH intact no [...] + | Blood | [facility] [address], [facility] [address] [place], [place] | | | [address] | + + + Magnesium (10/07/2017 12:50 AM) + +-------+ + | Component | Value | Ref Range | + +-------+ + | MAGNESIUM | 1.8 | 1.7 - 2.5 mg/dL | + +-------+ + + + + | Specimen | Performing Laboratory | + + + | Blood | [facility] [address] [place] [address], [address], [place] | | | [address] | + + + Renal function panel [...] + + | Blood | [facility] [address] [place] [address] | | | [address] | + + + from Last 3 [...] | | [place] | | | | [address] | | | RADIAL DRILL PRESS OPERATOR FOR PLASTIC | | | | | + +--------+ +------+-------+ + + +--------+ +--------+ + + | Guarantor Name | Accoun | Relation to | Date | Phone | Billing Address | | | t Type | Patient | of | | | | | | | | | | + +--------+ +--------+ + + | DLYAN CRISTINA | Person | Self [birth year] | Home: | [address] | | | al/Fam | | 1974 | [phone] [address] [place] | | | [place] | | | [phone] | [phone] | + +--------+ +--------+ + +
--- OUTSIDE RECORDS SUMMARY | 2017-11-23 23:15 | XMS | Encounter Summary ---
Demographics + + + | Address | [address] | | | [place] [address] | + + + | Home Phone [...] Author + + + | Author | [facility] | + + + | Organization | [facility] | + + + | Address | Unknown | + + + | Phone | Unavailable | + + + Support + + + + + | Name | Relationship | Address | Phone | + + + + + | KENNY BERRY | ECON | [address] | | | | | [place], | | | | | [place] [address] | | + + + + + | Ellie Vang | ECON | Unknown | | + + + + + Care Team Providers + +------+ + | Care Ore Puncher Name | Role | Phone | + +------+ + | Fadi Goodrich DO | PCP | | + +------+ + Encounter Details +--------+------+ + + + | Date | Type | Department | Care Team | Description | +--------+------+ + + + | 11/20/ | Lab | Laboratory at [facility] | | Morbid obesity with | | 2017 | | 3rd Floor [address] | | BMI of 70 and over, | | | | [address] [place], | | adult ([facility]); | | | | [place] [address] | | 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[phone] | | 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 ([facility]); | | | | | | Type 2 diabetes | | | | | | mellitus without | | | | | | complication, with | | | | | | long-term current | | | | | | use of insulin ([facility]) | +--------+------+ + + + Social History [...] Rd | | | | | | [place], [place] | | | | | | [address] | | | | | | [phone] | | | | | | | [...] + + + | Blood | [facility], [facility] + HEALING [address] | | | [place] [address] | + + + LIPID LAB - [...] + + + | Blood | [facility], LIPID [address] [facility] | | | [place] [address] | + + + HEMOGLOBIN A1C, BLOOD [...] + + + | Blood | [facility]OR[facility] SERVICES, SPECIAL IMM + COAG [address] [facility] | | | [place] [address] | + + + + + | Narrative | + + | Alternate forms of testing such as fructosamine should be considered for | | monitoring manager intermediate glycemic control in patients with: Increased red [...] | >60 | >60 mL/min | | CYPRIOT | | | + +---------+ + | EGFR NON | >60 | >60 mL/min | | -CYPRIOT | | | + +---------+ + | [...] + + + | Blood | [facility], [facility] [address] | | | [place] [address] | + + + + + | [...] | | ------ CBC (HEMOGRAM) | | ONLY[[id number]] Abnormal Final | | result Please view [...] + + + | Blood | [facility] SERVICES, CORE [address] [place] [address] RD | | | [place] [address] | + + + VITAMIN B-12 (11/20/2017 [...] + + + | Blood | [facility] SERVICES, CORE [address] | | | [place] [address] | + + + FERRITIN (11/20/2017 10:01 [...] | + + + | Blood | [facility] SERVICES, CORE [address] [place] [address] | | | [place] [address] | + + + PTH, SERUM (11/20/2017 10:01 AM) + +-------+ + | Component | Value | Ref Range | + +-------+ + | PTH, SERUM | 88 | 18 - 88 pg/mL | + +-------+ + + + + | Specimen | Performing Laboratory | + + + | Blood | [facility], CORE [address] [address] | | | [place] [address] | + + + + + | [...] | + + + | Blood | [facility], CORE [address] [place] [address] | | | [place] [address] | + + + + + | [...]
--- OUTSIDE RECORDS SUMMARY | 2017-11-23 23:15 | XMS | Encounter Summary ---
Demographics + + + | Address | [address] | | | [place] [address] | + + + | Home Phone | | + + + | Preferred Language | Unknown | + + + | Marital Status | Single | + + + | Christian Affiliation | PRO | + + + | Race | White | + + + | Ethnic Group | Not or | + + + Author + + + | Author | [facility] | + + + | Organization | [facility] | + + + | Address | Unknown | + + + | Phone | Unavailable | + + + Support + + + + + | Name | Relationship | Address | Phone | + + + + + | KENNY BERRY | ECON | [address] | | | | | [place], | | | | | [place] [address] | | + + + + + | Ellie Vang | ECON | Unknown | | + + + + + Care Team Providers + +------+ + | Care Butcher Fish Name | Role | Phone | + +------+ + | Fadi Goodrich DO | PCP | | + +------+ + Encounter Details +--------+ + + + + | Date | Type | Department | Care Team | Description | +--------+ + + + + | 10/27/ | Telephone | [facility] Center at [facility] | Leslie Mistry | | | 2017 | | 15th Floor [address] | PhD [address] [facility] | | | | | [address] | [address] | | | | | Code: CH[address] | [place], [place] | | | | | [facility] and | [address] | | | | | , 15th Floor | [phone] | | | | | [place], [place] | | | | | | [address] | | | | | | [phone] | | | +--------+ + + + [...] Rd | | | | | | [place], [place] | | | | | | [address] | | | | | | [phone] | | | | | | | | +--------+ + + + + as of this encounter Visit Diagnoses Not on filein this encounter"
--- OUTSIDE RECORDS SUMMARY | 2017-11-23 23:15 | XMS | Encounter Summary ---
Demographics + + + | Address | [address] | | | [place] [address] | + + + | Home Phone | | + + + | Preferred Language | Unknown | + + + | Marital Status | | + + + | Voodoo Affiliation | Unknown | + + + | Race | Unknown | + + + | Ethnic Group | Unknown | + + + Author + + + | Author | [facility] | + + + | Organization | [facility] | + + + | Address [...] Team Providers + +------+ + | Care Newspaper Manager Name | Role | Phone | + [...] | | | [address], [place] | [place] [address] | | | | | [address] | [phone] | | | | | | | [...] bypass surgery at some point soon at [facility]. she denies any blurred vision tinnitus, headache, [...] unable to assess segmental wal l motion, [place] visually estimates LVEF >70%. RV grossly NML. [...] lives at home with her mother in [place]. As in History of Present Illness & [...] D PO) Take by mouth. ergocalciferol (DRISDOL) 28981 UNITS capsule Take 50,000 Units by mouth [...] questions or concerns. Truly yours, Dharmesh MARKS [facility] Nephrology This note prepared with voice recognition software, if any questions concerning spelling an d/or grammar, please call. in this encounter Plan of Treatment Not on fileas of this encounter Visit Diagnoses + + | Diagnosis | + + | Hypokalemia - Primary | + + | Hypopotassemia | + +
--- OUTSIDE RECORDS SUMMARY | 2017-11-23 23:15 | XMS | Clinical Summary ---
Demographics + + + | Address | [address] | | | [place] [address] | + + + | Home Phone | | + + + | Preferred Language | Unknown | + + + | Marital Status | | + + + | Yazdanism Affiliation | Unknown | + + + | Race | Unknown | + + + | Ethnic Group | Unknown | + + + Author + + + | Author | [facility] | | | and Jeffana | + + + | Organization | [facility] | | | and Jeffana | + + + | Address | Unknown | + + + | Phone | Unavailable | + + + Support + + +---------+ + | Name | Relationship | Address | Phone | + + +---------+ + | MCFARLANE,JONAS | ECON | Unknown | | + + +---------+ + Care Team Providers + +------+ + | Care Biological Lab Technician Name | Role | Phone | + +------+ + PP | Unavailable | + +------+ + Allergies Not on File Current Medications Not on file Active Problems Not on file Social History + +-------+ +--------+------+ | Tobacco Use | Types | Packs/Day | Years | Date | | | | | Used | | + +-------+ +--------+------+ | Never Assessed | | | | | + +-------+ +--------+------+ + + + | Sex Assigned at | Date Recorded | | | | + + + | Not on file | | + + + Plan of Treatment + + + + + | Health Maintenance | Due Date | Last Done | Comments | + + + + + | Vaccine: | | | | | Dtap/Tdap/Td (1 - | 6 | | | | Tdap) | | | | + + + + + | CERVICAL CANCER | | | | | SCREENING (PAP EVERY | 8 | | | | 3 YEARS 21-64 ) | | | | + + + + + | Vaccine: Influenza | | | | | (Season Ended) | 8 | | | + + + + + Results Not on filefrom Last 3 Months"
--- OUTSIDE RECORDS SUMMARY | 2017-11-23 23:15 | XMS | Encounter Summary ---
Demographics + + + | Address | [address] | | | [place] [address] | + + + | Home Phone | | + + + | Preferred Language | Unknown | + + + | Marital Status | Single | + + + | Congregation Affiliation | PRO | + + + [...] + | KENNY BERRY | ECON | [address] | | | | | [place], | | | | | [place] [address] | | + + + + + | Ellie Vang | ECON | Unknown | | + + + + + Care Team Providers + +------+ + | Care Bus Dispatcher Interstate Name | Role | Phone | + +------+ + PCP | Unavailable | + +------+ + Encounter Details +--------+ + + + + | Date | Type | Department | Care Team | Description | +--------+ + + + + | 12/07/ | Procedure | [facility]A [facility] | | | | 2018 | Pass | [facility] | | | | | | Admitting Desk | | | | | | Located on the 9 | | | | | | floor [address] [facility] | | | | | | [facility] | | | | | | [place], [place] | | | | | | [address] | | | +--------+ + + + [...] [address] | | | | | | [place], [place] | | | | | | [address] | | | | | | [phone] | | | | | | | | +--------+ + + + + as of this encounter Visit Diagnoses Not on filein this encounter"
--- OUTSIDE RECORDS SUMMARY | 2017-11-23 23:15 | XMS | Encounter Summary ---
Demographics + + + | Address | [address] | | | [place] [address] | + + + | Home Phone | | + + + | Preferred Language | Unknown | + + + | Marital Status | Single | + + + | Evangelical Affiliation | PRO | + + + | Race | White | + + + | Ethnic Group | Not or | + + + Author + + + | Author | [facility] | + + + | Organization | [facility] | + + + | Address | Unknown | + + + | Phone | Unavailable | + + + Support + + + + + | Name | Relationship | Address | Phone | + + + + + | KENNY BERRY | ECON | [address] | | | | | [place], | | | | | [place] [address] | | + + + + + | Ellie Vang | ECON | Unknown | | + + + + + Care Team Providers + +------+ + | Care Casting Sorter Name | Role | Phone | + +------+ + | Fadi Goodrich DO | PCP | | + +------+ + Encounter Details +--------+ + + + + | Date | Type | Department | Care Team | Description | +--------+ + + + + | 11/04/ | Telephone | [facility] at [facility] | Leslie Mistry | | | 2017 | | 15th Floor [address] | PhD [address] [facility] | | | | | [address] | [address] | | | | | Code: CH15P [place] | [place], [place] | | | | | [facility] and | [address] | | | | | , 15th Floor | [phone] | | | | | [place], [place] | | | | | | [address] | | | | | | [phone] | | | +--------+ + + + [...] [address] | | | | | | [place], [place] | | | | | | [address] | | | | | | [phone] | | | | | | | | +--------+ + + + + as of this encounter Visit Diagnoses Not on filein this encounter"
--- OUTSIDE RECORDS SUMMARY | 2017-11-23 23:15 | XMS | Clinical Summary ---
Demographics + + + | Address | [address] | | | [place] [address] | + + + | Home Phone | | + + + | Preferred Language | Unknown | + + + | Marital Status | Single | + + + | Synagogue Affiliation | PRO | + + + | Race | White | + + + | Ethnic Group | Not or | + + + Author + + + | Author | [facility] | + + + | Organization | [facility] | + + + | Address | Unknown | + + + | Phone | Unavailable | + + + Support + + + + + | Name | Relationship | Address | Phone | + + + + + | KENNY BERRY | ECON | [address] | | | | | [place], | | | | | [place] [address] | | + + + + + | Ellie Vang | ECON | Unknown | | + + + + + Care Team Providers + +------+ + | Care Agricultural Agent Name | Role | Phone | + +------+ + | Fadi Goodrich DO | PP | | + +------+ + Source Comments NKECHI is fully live on both EpicCare Ambulatory and EpicCare InPatient.[facility] Allergies + + + + + + [...] | | | | Activ | | CRB&[id number]-I2-[id number]-GEN | mouth two times | | | [...] with BMI of 70 and over, adult ([facility]) | 02/02/2017 | + + + | [...] with BMI of 70 and over, adult ([facility]) | 06/16/20 | | | | 13 | 4 | + + + + | Diabetes mellitus ([facility]) | 06/16/20 | | | | 13 [...] | | | | | | adult ([facility]); | | | | | | 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| | 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 ([facility]); | | | | | [...] | | | | use of insulin ([facility]) | | | | | | (Primary Dx); | | | | | | Morbid obesity with | | | | | | BMI of 70 and over, | | | | | | adult ([facility]) | +--------+ + + + + | 11/04/ | Telephone | | Leslie Mistry, | | | 2017 | | | PhD | | +--------+ + + + + | 10/30/ | Office | | Ion Pandey, | 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 | Visit | | MD | BMI of 70 and over, | | | | | | adult ([facility]) (Primary | | | | | | Dx); Diabetes | | | | | | mellitus type 2 | | | | | | without retinopathy | | | | | | ([facility]); | | | | | | Intertriginous [...] 2017 | Visit | | PhD | ([facility]); Bipolar | | | | | | affective disorder, | | | | | | remission status | | | | | | unspecified ([facility]); | | | | | | BMI 60.0-69.9, adult | | | | | | ([facility]); Anxiety | +--------+ + + + + | 09/11/ | Office | | Olga Lidia Montanez, | 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 | Visit | | RD | BMI of 70 and over, | | | | | | adult ([facility]) (Primary | | | | | | [...] | | 2017 | Visit | | [address] | | | | | | [address] | | | | | | [place], [place] | | | | | | [address] | | | | | | [phone] | | | | | | | [...] | + + + | Blood | [facility], LIPID [address] [facility] | | | [place] [address] | + + + CBC (HEMOGRAM) ONLY [...] | + + + | Blood | [facility], [facility] + HEALING [address] | | | [place] [address] | + + + VITAMIN D, 25-HYDROXY, SERUM (11/20/2017 10:01 AM) + +-------+ + | Component | Value | Ref Range | + +-------+ + | VITAMIN D 25 HYDROXY | 75.2 | 30 - 80 ng/mL | + +-------+ + + + + | Specimen | Performing Laboratory | + + + | Blood | [facility], CORE [address] | | | [place] [address] | + + + + + | [...] | >60 | >60 mL/min | | LATVIAN | | | + +---------+ + | EGFR NON | >60 | >60 mL/min | | -LATVIAN | | | + +---------+ + | [...] | + + + | Blood | [facility] [address] | | | [place] [address] | + + + + + | [...] | | ------ CBC (HEMOGRAM) | | ONLY[[id number]] Abnormal Final | | result Please view [...] | + + + | Blood | [facility], CORE [address] | | | [place] [address] | + + + PTH, SERUM (11/20/2017 10:01 AM) + +-------+ + | Component | Value | Ref Range | + +-------+ + | PTH, SERUM | 88 | 18 - 88 pg/mL | + +-------+ + + + + | Specimen | Performing Laboratory | + + + | Blood | [facility], CORE [address] [facility] | | | [place] [address] | + + + + + | [...] | + + + | Blood | [facility], CORE [address] [facility] | | | [place] [address] | + + + HEMOGLOBIN A1C, BLOOD [...] | + + + | Blood | [facility], [facility] + COAG [address] | | | [place] [address] | + + + + + | Narrative | + + | Alternate forms of testing such as fructosamine should be considered for | | monitoring charge entry clerk glycemic control in patients with: Increased red [...] + + + | Blood | [facility], CORE [address] | | | [place] [address] | + + + from Last 3 Months
--- OUTSIDE RECORDS SUMMARY | 2017-11-23 23:15 | XMS | Encounter Summary ---
Demographics + + + | Address | [address] | | | [place] [address] | + + + | Home Phone [...] Author + + + | Author | [facility] | + + + | Organization | [facility] | + + + | Address | Unknown | + + + | Phone | Unavailable | + + + Support + + + + + | Name | Relationship | Address | Phone | + + + + + | KENNY BERRY | ECON | [address] | | | | | [place], | | | | | [place] [address] | | + + + + + | Ellie Vang | ECON | Unknown | | + + + + + Care Team Providers + +------+ + | Care Proposal Consultant Name | Role | Phone | + +------+ + | Fadi Goodrich DO | PCP | | + +------+ + Encounter Details +--------+ + + + + | Date | Type | Department | Care Team | Description | +--------+ + + + + | 10/27/ | Abstract | Digestive Health | Clinic, Surgery | | | 2018 | | Center at [facility] 6th | | | | | | Floor [address] | | | | | | [place] Mailcode: CH4S | | | | | | [facility] | | | | | | and [address], 6th | | | | | | floor [place], [place] | | | | | | [address] | | | | | | [phone] | | | +--------+ + + + [...] Rd | | | | | | [place] | | | | | | [address] | | | | | | [phone] | | | | | | | | +--------+ + + + + as of this encounter Visit Diagnoses Not on filein this encounter"
--- OUTSIDE RECORDS SUMMARY | 2017-11-23 23:15 | XMS | Encounter Summary ---
Demographics + + + | Address | [address] | | | [place] [address] | + + + | Home Phone | | + + + | Preferred Language | Unknown | + + + | Marital Status | Single | + + + | Judaism Affiliation | PRO | + + + | Race | White | + + + | Ethnic Group | Not or | + + + Author + + + | Author | [facility] | + + + | Organization | [facility] | + + + | Address | Unknown | + + + | Phone | Unavailable | + + + Support + + + + + | Name | Relationship | Address | Phone | + + + + + | KENNY BERRY | ECON | [address] | | | | | [place], | | | | | [place] [address] | | + + + + + | Ellie Vang | ECON | Unknown | | + + + + + Care Team Providers + +------+ + | Care Scientific Photographer Name | Role | Phone | + [...] | Surgery | Diagnoses | Dannie | Dnanie, | | | | | Morbid | Ion Colvin MD | Ion Colvin MD | | | | | obesity with | [address] | [address] | | | | | BMI of [address] | [address] | Ave | | | | | and over, | [place], [place] | [facility] [place] | | | | | adult (HCC) | [address] | [address] | | | | | Diabetes | Phone: | Phone: | | | | | mellitus | | | | | | | type 2 | Fax: | Fax: | | | | | without | [phone] | [phone] | | |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 | [...] | Scheduled | | Essential | MD Randell | Bariatric | | | with REGISTERED SAFETY ENGINEER | | hypertension | [address] | Surg Ch | | | | | Right | [address] | [address] | | | | | heart | [address] | Ave | | | | | failure | [place], [place] | Mailcode: | | | | | Type 2 | [address] | [address] | | | | | diabetes | Phone: | for Health | | | | | mellitus | [phone] | and Healing, | | | | | without | Fax: | 6th floor | | | | | complication | [phone] | [place], [place] | | | | | , with | | [address] | | | | | long-term | | Phone: | | | | | current use | | [phone] | | | | | of insulin | | Fax: | | | | | ([facility]) | | [phone] | | | | | Procedures | [...] | 2018 | Visit | Center at [facility] 6th | MD [address] | BMI of 70 and over, | | | | Floor [address] | [place], [place] | adult ([facility]) (Primary | | | | Ave Mailcode: [facility] | [address] | Dx); Diabetes | | | | [facility] | | mellitus type 2 | | | | and Healing, 6th | | without retinopathy | | | | floor [place], [place] | | ([facility]); | | | | [address] | | Intertriginous | | | | | | candidiasis; PCOS | | | | | | (polycystic ovarian | | | | | | syndrome); AMARA | | | | | | treated with BiPAP; | | | | | | Chronic diastolic | | | | | | heart failure ([facility]); | | | | | | Essential [...] AM PDTPlease visit with our Raza heard Automobile Painter (RD) for instructions about your Bariatric diet, assistance with calorie counts, tips and tricks for working with your diet restrictions, and recipes after bariatri c surgery. Daily yogurt; even just 1 tablespoon twice a day will provide enough probiotics to optimize digestion. Try to use a high-quality, probiotic-dense yogurt (eg Zaria's, Leonides, Stacie hendricksclaus Kefir, Hospital Liaison Duke's Andorran Yogurt). Remember to chew your food well, [...] to the healing stomach. There are also meterman complications of poor wound healing and gastric [...] Dr. Andie Brian Incisional hernia repair 03/01/2015 [facility]/ Dr. Cantu. Primary fascial closure and scar [...] 1 tablet by mouth once daily CALCIUM CRB&UNA-V1-VLE57-GENIS ORAL Take 2 tablets by mouth two [...] History Narrative Updated 11/09/15 She lives in [place] with her mother and her sister (also her caregiver) lives in an artment/duplex below. She has 2 grandchildren (age 4 and 7) who live with her daughter and son-in-law Her boyfriend lives in [place] HFpEF, DM2, HTN, Sleep Apnea (unable to [...] program here and refer her to our agronomy specialist who also has expertise in physical [...] a 4-5% rate of reoperation over the meterman (i.e. years), as well as other late [...] and may approach 5%. We reviewed the [facility] consent form. We discussed that we did [...] and manage and supervise all care delivered. Cahrlene patterson discussed the fact that if we [...] Rd | | | | | | [place], [place] | | | | | | [address] | | | | | | [phone] | | | | | | | [...] PDT | | | | over, adult ([facility]) | | | | | Diabetes mellitus [...] | | | | | over, adult ([facility]) | | | | | 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| 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) | | | | | AMARA treated with | | | | | BiPAP Chronic | | | | | diastolic heart | | | | | failure ([facility]) | | | | | Essential | [...] | >60 | >60 mL/min | | ERITREAN | | | + +---------+ + | EGFR NON | >60 | >60 mL/min | | -ERITREAN | | | + +---------+ + | [...] | + + + | Blood | [facility], CORE [address] | | | [place] [address] | + + + + + | [...] | | ------ CBC (HEMOGRAM) | | ONLY[[id number]] Abnormal Final | | result Please view [...] | + + + | Blood | [facility], CORE [address] | | | [place] [address] | + + + VITAMIN B-12 (11/20/2017 [...] | + + + | Blood | [facility], CORE [address] | | | [place] [address] | + + + FERRITIN (11/20/2017 10:01 [...] | + + + | Blood | [facility], CORE [address] [facility] | | | [facility] [place] [place] [address] | + + + PTH, SERUM (11/20/2017 10:01 AM) + +-------+ + | Component | Value | Ref Range | + +-------+ + | PTH, SERUM | 88 | 18 - 88 pg/mL | + +-------+ + + + + | Specimen | Performing Laboratory | + + + | Blood | [facility], CORE [address] [place] [address] | | | [place] [address] | + + + + + | [...] | + + + | Blood | [facility] [address] [facility] | | | [place] [address] | + + + + + | [...] with BMI of 70 and over, adult ([facility]) - Primary | + + | Diabetes mellitus type 2 without retinopathy ([facility]) | + + | Type II or [...]
--- OUTSIDE RECORDS SUMMARY | 2017-11-23 23:15 | XMS | Clinical Summary ---
Demographics + + + | Address | [address] | | | [place] [address] | + + + | Home Phone | | + + + | Preferred Language | Unknown | + + + | Marital Status | | + + + | Restorationist Affiliation | Unknown | + + + | Race | Unknown | + + + | Ethnic Group | Unknown | + + + Author + + + | Author | [facility] | | | and [place] | + + + | Organization | [facility] | | | [...] Team Providers + +------+ + | Care Shaft Sinker Name | Role | Phone | + [...]
--- OUTSIDE RECORDS SUMMARY | 2017-11-23 23:15 | XMS | Encounter Summary ---
Demographics + + + | Address | [address] | | | [place] [address] | + + + | Home Phone | | + + + | Preferred Language | Unknown | + + + | Marital Status | Single | + + + | Anabaptism Affiliation | PRO | + + + | Race | White | + + + | Ethnic Group | Not or | + + + Author + + + | Author | [facility] | + + + | Organization | [facility] | + + + | Address | Unknown | + + + | Phone | Unavailable | + + + Support + + + + + | Name | Relationship | Address | Phone | + + + + + | KENNY BERRY | ECON | [address] | | | | | [place], | | | | | [place] [address] | | + + + + + | Ellie Vang | ECON | Unknown | | + + + + + Care Team Providers + +------+ + | Care Assistant Corporate Controller Name | Role | Phone | + +------+ + | Fadi Goodrich DO | PCP | | + +------+ + Encounter Details +--------+ + + + + | Date | Type | Department | Care Team | Description | +--------+ + + + + | 10/19/ | Abstract | Digestive Health | Clinic, Surgery | | | 2017 | | Center at [facility] 6th | | | | | | Floor [address] | | | | | | [place] Mailcode: CH4S | | | | | | [facility] | | | | | | and [address], 6th | | | | | | floor [place], [place] | | | | | | [address] | | | | | | [phone] | | | +--------+ + + + [...] Rd | | | | | | [place] | | | | | | [address] | | | | | | [phone] | | | | | | | | +--------+ + + + + as of this encounter Visit Diagnoses Not on filein this encounter"
== END 2017-11-23 23:55 | disposition home or self-care (01) ==
LOC: ED 21:13
PROC: 0T9B70Z Drainage of Bladder with Drainage Device, Via Natural or Artificial Opening (ICD-10-PCS; principal; 2017-11-23)
DX: R10.9 Unspecified abdominal pain (principal); E66.01 Morbid (severe) obesity due to excess calories; E11.9 Type 2 diabetes mellitus without complications; Z88.0 Allergy status to penicillin; Z88.8 Allergy status to other drugs, medicaments and biological substances; Z79.4 Long term (current) use of insulin; Z79.899 Other long term (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
CPT/HCPCS: 51701; 74177; 80053; 81001; 83690; 84703; 85025; 96361; 96374; 96375; 99284; J1170; J2405; J7030; Q9967

== ENCOUNTER 2018-04-27 15:35 | Emergency (ER) | payer OTHER ==
[~2018-04-27] VITALS: Ht 152.4 cm; Wt 151.5 kg
--- OUTSIDE RECORDS SUMMARY | ~2018-04-27 | XMS | Clinical Summary ---
Demographics + + + | Address | [address] | | | [place] [address] | + + + | Home Phone | | + + + | Preferred Language | Unknown | + + + | Marital Status | | + + + | Presybeterian Affiliation | Unknown | + + + | Race | Unknown | + + + | Ethnic Group | Unknown | + + + Author + + + | Author | [facility] | | | and [place] | + + + | Organization | [facility] | | | [...] Team Providers + +------+ + | Care Gang Bore Operator Name | Role | Phone | [...] Vaccine: Influenza | | | | | (#1) | 8 | | | + + + + + Results Not on filefrom Last 3 Months"
--- OUTSIDE RECORDS SUMMARY | ~2018-04-27 | XMS | Encounter Summary ---
Demographics + + + | Address | [address] | | | [place] [address] | + + + | Home Phone | | + + + | Preferred Language | Unknown | + + + | Marital Status | | + + + | Adventism Affiliation | Unknown | + + + | Race | Unknown | + + + | Ethnic Group | Unknown | + + + Author + + + | Author | [facility] | + + + | Organization | [facility] | + + + | Address [...] Team Providers + +------+ + | Care Driver License Agent Name | Role | Phone | + +------+ + | Fadi Goodrich DO | PCP | | + +------+ + Reason for Referral Consultation (Routine) + + + + + + + | Status | Reason | Specialty | Diagnoses / | Referred By | Referred To | | | | | Procedures | Contact | Contact | + + + + + + + | New Request | Specialty | Pulmonary | Diagnoses | [place], | [facility], [facility] | | | Services | Disease | Morbid | Sulema Pope, | [facility] | | | Required | | obesity with | [address] | Sleep | | | | | alveolar | [address] | Disorders | | | | | hypoventilat | Roshan F | [facility] | | | | | ion (HCC) | [place], [place] | HOSPITAL | | | | | History of | [address] | [address] | | | | | sinus | Phone: | [address] | | | | | tachycardia | [phone] | [place], [place] | | | | | Transient | Fax: | [address] | | | | | cerebral | [phone] | Phone: | | | | | ischemia, | | [phone] | | | | | unspecified | | Fax: | | | | | type HTN, | | [phone] | | | | | goal below | | | | | | | 130/80 | | | | | | | Sleep apnea | | | | | | | with use of | | | | | | | continuous | | | | | | | positive | | | | | | | airway | | | | | | | pressure | | | | | | | (CPAP) | | | + + + + + + + Reason for Visit + + + | Reason | Comments | + + + | Follow-up | Annual | + + + Encounter Details +--------+---------+ + + + | Date | Type | Department | Care Team | Description | +--------+---------+ + + + | 04/26/ | Office | [facility] Card[facility] | Sulema Altamirano | 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 | Visit | [facility] | SELINA [address] | alveolar | | | | [address] | [address] | hypoventilation | | | | [address] | [place] [address] | ([facility]) (Primary Dx); | | | | [place] [address] | [phone] | History of sinus | | | | [phone] | | tachycardia; | | | | | | Transient cerebral | | | | | | ischemia, | | | | | | unspecified type; | | | | | | HTN, goal below | | | | | | 130/80; Pure | | | | | | hyperglyceridemia; | | | | | | Edema, unspecified | | | | | | type; Sleep apnea | | | | | | with use of | | | | | | continuous positive | | | | | | airway pressure | | | | | | (CPAP); Hypokalemia; | | | | | | Dehydration, mild; | | | | | | History of bariatric | | | | | | surgery | +--------+---------+ + + + Social History [...] + + + | Blood Pressure | 120/78 | 04/26/2018 2:28 PM PDT | + + + + | Pulse | 77 | 04/26/2018 2:28 PM PDT | + + + + | Temperature | - | - | + + + + | Respiratory Rate | 18 | 04/26/2018 2:28 PM PDT | + + + + | Oxygen Saturation | 97% | 04/26/2018 2:28 PM PDT | + + + + | Inhaled Oxygen | - | - | | Concentration | | | + + + + | Weight | 150.7 kg (332 lb 4.8 | 04/26/2018 2:28 PM PDT | | | oz) | | + + + + | Height | 154.9 cm (5' 1") | 04/26/2018 2:28 PM PDT | + + + + | Body Mass Index | 62.79 | 04/26/2018 2:28 PM PDT | + + + + in this encounter Instructions Patient Instructions - Adarsh KarinSELINA Pope - 04/26/2018 2:30 PM PDTAlways bring you r pills bottles for me I have referred you to Dr. Rascon at [facility] , call [phone] for an appoi ntment next week You maybe dehydrated, try not eating any solids, just liquids for a few days, and try Pedi alyte, clear liquids, jello, Call [facility] today and tell them about not being able to keep food down and being dehydrated. , and that I ordered labs Call [facility] about results and how you are doing in this encounter Progress Notes Darlinyana KarinSELINA - 04/26/2018 2:30 PM PDTFormatting of this note may be differen t from the original. Date of visit: 04/27/2018 Primary Care Physician: FADI GOODRICH CHIEF COMPLAINT: Chief Complaint Patient presents with Follow-up Annual HISTORY OF PRESENT ILLNESS: Ms. Elzbieta Cristina is a 41-year-old woman who is here today for follow-up on response to A tenolol I had started her on last time and also her Echo done for cardiac clearance for pérez atric surgery program at [facility]. I had also referred her for sleep apnea evaluation and treatment from Dr. Luis Eduardo Saba. She has a history of hypertension, hyperlipidemia, peripheral edema, and diastolic dysfun ction with previous dysfunctional RV treated at [facility] with diuresis and hospitalization for o ne month.. She also has a history of sleep apnea treated with BiPAP, type II diabetes, hyp othyroidism, morbid obesity with alveolar hypoventilation, osteoarthritis, stroke at the age of 18,deep vein thrombosis and PE within the last year, hypokalemia and hyperuricemia which is being followed by gang saw operator Dr. Fu, and SELINA Escobar and last seen by the m on 09/2016 and note reviewed. Her previous testing and procedures are detailed below. She reports today that she vomiting, to her bariatric surgery on March 01, 2018 at [facility] and had Frandy-en-Y gastric bypass. Weight is down 60 pounds since September 2017. She reports the surgery went well, but did not need some antibiotics for postoperative wo und infection, and her primary problem today is that she has ongoing nausea and vomiting chery r since she started soft foods, and thinks it has been worse in the last few weeks. She also thinks she is dehydrated, and the skin on the back of her hand and fingers did n ot demonstrate poor turgor. She was seen at the beginning of March at [facility] for similar concerns, but reports none of the interventions they had suggested have helped her. She also has ongoing pain from ventral hernias, which need surgically repaired, but surge ry can not be completed until she has lost more weight Since I saw her last, her atenolol was increased to 50 mg daily by herself PCP, Dr. Goodrich for reports of increased palpitations, and heart rate and blood pressure well controlled, a nd EKG performed in the clinic today shows normal sinus rhythm at 77 bpm and detailed below. She reports she still has mild dyspnea with exertion, but much improved since I saw her l ast, and denies any chest pain, dizziness, palpitations, or syncope. She also denies any s igns and symptoms of stroke or transient ischemic attack. She also needs referral to establish with new sleep provider, so she can get updated pres cription for CPAP, with history of sleep apnea and alveolar hypoventilation REVIEW OF SYSTEMS: Negative except for pertinent items noted in HPI. Constitutional: Reports ongoing fatigue, denies unexplained weight loss.Naps in the day Ap petite is good. Weight Stable since last seen Denies night sweats fevers or chills HENT: [...] of lower extremity edema and lymphadenopathy, palpitations and freq uent with increased dose of atenolol. Denies chest pain, lower extremity edema Denies histo ry of rheumatic fever. Denies claudication . Gastrointestinal: history of GERD History diverticulitis history, hernia abdominal wall, ventral hernia, reports ongoing nausea and vomiting with soft food. Denies blood in stool . Genitourinary: Denies Hematuria., stress Urinary incontinence, history of kidney stone, o n nexplanonon for control Musculoskeletal: History of osteoarthritis, myalgias, [...] History of PE and deep vein thrombosis within the last year , treat ed with coumadin. Does not bruise/bleed easily. Denies history of cancer Endocrine: History of diabetes on insulin, hypothyroidism,followed by Dr. Franks, endocrin ologist at [facility]) . Denies excessive thirst or hunger. Psychiatric/Behavioral: History of bipolar disorder, anxiety, depression, insomnia Vaccines: Current on 2017 flu vaccine. Current on pneumonia vaccine. Habits/Social : Denies history of smoking, exposed to second hand smoke from mother who li ves with her. Denies EtOH use. Drinks 0 servings of caffeine daily . Denies illicit drug use. Exercises with walking , difficult with knee pain and hernia pain Lives in [facility] her mother . Sister is care coordination manager She also has a boyfriend who lives in [place]. Gini nguyen ages 4 and 7 live with her daughter and son-in-law. Disabled , on disability Outpatient Medications Prior to Visit Medication Sig Dispense Refill ascorbic acid (VITAMIN C) 500 MG tablet Take 1,000 mg by mouth daily. aspirin 81 MG EC tablet Take 81 mg by mouth daily with breakfast. Calcium Citrate-Vitamin D (CALCIUM CITRATE + D PO) Take by mouth. ergocalciferol (DRISDOL) 37472 UNITS capsule Take 50,000 Units by mouth twice a week. Etonogestrel (NEXPLANON) 68 MG IMPL Inject into the skin. FLUoxetine (PROZAC) 20 MG capsule Take 60 mg by mouth daily. gabapentin (NEURONTIN) 300 MG capsule Take 300 mg by mouth 4 (four) times daily. Insulin Degludec (TRESIBA FLEXTOUCH SC) Inject 37 Units into the skin nightly. Magnesium 400 MG CAPS Take 1 capsule by mouth daily. metFORMIN (GLUCOPHAGE) 1000 MG tablet Take 1,000 mg by mouth 2 (two) times daily with m eals. OLANZapine (ZYPREXA) 15 MG tablet Take 30 mg by mouth nightly. phentermine (ADIPEX-P) 37.5 MG tablet Take 37.5 mg by mouth every morning before breakf ast. piroxicam (FELDENE) 10 MG capsule Take 10 mg by mouth nightly. potassium chloride SA (K-DUR,KLOR-CON) 20 MEQ tablet Take 60 mEq by mouth 4 (four) time s daily. pseudoephedrine (SUDAFED) 120 MG 12 hr tablet Take 120 mg by mouth as needed. spironolactone (ALDACTONE) 50 MG tablet Take 50 [...] tablet Take 150 mg by mouth nightly. senna-docusate (PERICOLACE) 8.6-50 MG per tablet Take 1 tablet by mouth 2 (two) times d aily. ALPRAZolam (XANAX) 1 MG tablet Take 1 mg by mouth nightly as needed for Sleep. atenolol (TENORMIN) 25 MG tablet Take 1 tablet by mouth nightly. (Patient not taking: R eported on 04/26/2018) 30 tablet 11 fentaNYL (DURAGESIC) 25 MCG/HR Place 1 patch onto the skin every third day. insulin NPH-insulin regular (NOVOLIN 70/30) (70-30) 100 UNIT/ML injection Inject 5 Unit s into the skin 2 (two) times daily before meals. ondansetron (ZOFRAN) 4 MG tablet Take 4 mg by mouth 3 (three) times daily as needed for Nausea. No facility-administered medications prior to visit. PHYSICAL EXAM: Wt Readings from Last 3 Encounters: 04/26/18 150.7 kg (332 lb 4.8 oz) 10/14/17 178.9 kg (394 lb 6.4 oz) 04/09/17 179.7 kg (396 lb 1.6 oz) Temp Readings from Last 3 Encounters: 10/14/17 97.4 F (36.3 C) (Temporal) 04/06/17 97 F (36.1 C) (Temporal) 10/20/16 97.9 F (36.6 C) (Temporal) BP Readings from Last 3 Encounters: 04/26/18 120/78 10/14/17 134/86 04/09/17 130/62 Pulse Readings from Last 3 Encounters: 04/26/18 77 10/14/17 104 04/09/17 88 GENERAL: Morbidly obese , in no distress. [...] aortic pulsation is not palpable . EXTREMITIES: Trace non pitting pedal edema. Radial pulses 2+ bilaterally. Femoral pulses are 2+ bilaterally without bruits. DP and PT pulses are 2+ bilaterally. No clubbing. Amb ulates slowly SKIN: Warm and dry, capillary refill is normal, no lesions. Tattoos , right hand, Poor sk in turgor to hands and fingers, with tenting of skin NEUROLOGIC: Awake, alert and oriented x 3. No focal motor or sensory deficits. PSYCHIATRIC: Appropriate, affect appears normal DATA: Blood tests: Lab Results Component Value Date WBC 10.9 10/07/2017 RBC 4.79 10/07/2017 HGB 12.8 10/07/2017 HCT 39.8 10/07/2017 PLT 260 10/07/2017 Lab Results Component Value Date NA 141 10/07/2017 K 4.4 10/07/2017 CL 104 10/07/2017 CO2 22 10/07/2017 ANIONGAP 19.4 10/07/2017 GLUF 105 (A) 10/07/2017 BUN 17 10/07/2017 CREATININE 0.88 10/07/2017 BCR 19.3 10/07/2017 CA 9.1 10/07/2017 EGFR 71 10/07/2017 Lab Results Component Value Date GLUF 105 (A) 10/07/2017 No results found for: BNP, CKTOTAL, TSH, CRP No results found for: METF, NMETFX, TFNMFX, DEHLCHD33IGW, WQKEEM91GXI, TOTEPI ECHO: Last Echo: 02/16/2017: ([facility]): normal EF of 60-65% , accurate assessment of diastolic functi on impeded by poor tissue doppler, RV normal in size and function, with no significant valvu lar disease, and aortic root, ascending aorta , and aortic arch normal Echo: 01/02/2016 ([facility]): TDS, cardiac chamber dimensions grossly NML, LVEF >70%, rodriguez tolic function normal for patient. Unable to assess segmental wall motion. RV grossly norm al. Aortic valve sclerotic, no As/AI. Mitral and tricuspid valves grossly normal. Trace T R. No pericardial effusion VASCULAR TESTING AND PROCEDURES Venous US: right leg, 04/28/2016: No evidence of DVT. EKG EKG 10/27: ([facility]) Normal sinus rhythm. Normal EKG. Rate 93 bpm, OH 172 ms, QRS 90 ms, QTC 465 ms personally reviewed by me in the office today) EK02/05: Sinus tachycardia, otherwise normal. Rate 160 bpm, OH 174 ms, QRS 74 ms, QTC 451 ms (personally reviewed by me in the office today and no significant change seen fro m EKG done in October 2016 except for faster heart rate) EK04/26/2018: Normal sinus rhythm, rate 74 bpm, OH 182 ms, QRS 96 ms, QTC 472 ms Labs: Labs: 2016: TSH 3.19, total cholesterol 175, [...] 0.89, GFR 71 Labs: 04/01/2017: NA 139 ,K3.8 CL103,GL120,BUN 13, CR 0.9, GFR 69. WBC 11.6 RBC 6.33 HGB 1 3.3 HCT 41.9 Lipids: 11/20/2017:Lipids: ( no statin) [...] alk phos 109, AST 20, ALT 29 ASSESSMENT & PLAN: She was here today for an only exam, and to follow-up after having gastric bypass surger y in February at [facility]. She has problems as detailed below. Her EKG shows normal sinus rhythm, and her heart rate and blood pressure are well controlle d on current medications, and her lipids performed in October showed that they are well contro lled without statin. She has mostly recovered from her surgery, but has complaints today of ongoing nausea and vomiting and feeling dehydrated, with poor skin turgor noted to her hands and fingers. I have advised her to call [facility] about these concerns, and have suggested she try eating a clear liquid diet for a few days along with Pedialyte to see if it resolves or nausea and v omiting. I also ordered her a CMP to evaluate her electrolytes, liver enzymes, and renal function, and have told her to check back with us on above the results, and to let us know ho w she is doing. I am concerned because electrolyte imbalances can contribute to arrhythmias She also needs a new sleep provider, as her previous provider retired, and she needs an upd ated prescription for her CPAP, I have referred her to Dr. Rascon at [facility] . I made no changes to her cardiac medications today, and she should continue Demadex 100 m g bid, spironolactone 50 mg daily, potassium 60 mEq 4 times a day for chronic hypokalemia hi m and atenolol 50 mg qhs which is controlling her palpitations and fast heart rates , and as pirin 81 mg daily. I will adjust medications if needed for any electrolyte imbalance, otherwise I will follo w-up with her in July, but sooner if needed. I have also reminded her to bring all of her medication bottles to future clinic visits 1. Morbid obesity with alveolar hypoventilation (HCC) 2. History of sinus tachycardia 3. Transient cerebral ischemia, unspecified type 4. HTN, goal below 130/80 5. Pure hyperglyceridemia 6. Edema, unspecified type 7. Sleep apnea with use of continuous positive airway pressure (CPAP) 8. Hypokalemia 9. Dehydration, mild 10. History of bariatric surgery Orders Placed This Encounter Procedures Comprehensive metabolic panel Lipid panel Magnesium Ambulatory referral to Pulmonology Electrocardiogram, 12-lead The following portions of the patient's history were personally reviewed by me and updated as appropriate: EKG tracings, other specialty provider and PCP notes, any Hospital admission and discharge summaries, any ER records , current and previous cardiac testing and procedure reports and d [facility], [facility] records,medication bottles not brought to the clinic today Allergies, current medications.labs Family history, past medical history, past social history, past surgical history. Problem list. SELINA Santos [facility] 04/27/2018in this encounter Plan of Treatment +--------+---------+ + + + | Date | Type | Specialty | Care Team | Description | +--------+---------+ + + + | 07/29/ | Office | Cardiology | Sulema Altamirano | | | 2019 | Visit | | SELINA [address] | | | | | | [address] | | | | | | [place] [address] | | | | | | [phone] | | | | | | | | +--------+---------+ + + + + +--------+ + + | Name | Priori | Associated Diagnoses | Order Schedule | | | ty | | | + +--------+ + + | Comprehensive metabolic panel | Routin | Pure | Expected: | | | e | hyperglyceridemia | 04/26/2018, Expires: | | | | Hypokalemia | 04/26/2019 | | | | Dehydration, mild | | + +--------+ + + | Lipid panel | Routin | Pure | Expected: | | | e | hyperglyceridemia | 04/26/2018, Expires: | | | | | 04/26/2019 | + +--------+ + + | Magnesium | Routin | Dehydration, mild | Expected: | | | e | History of | 04/26/2018, Expires: | | | | bariatric surgery | 04/26/2019 | + +--------+ + + + +--------+ + + | Name | Priori | Associated Diagnoses | Order Schedule | | | ty | | | + +--------+ + + | Ambulatory referral to | Routin | Morbid obesity | Ordered: 04/26/2018 | | Pulmonology | e | with alveolar | | | | | hypoventilation | | | | | (HCC) History of | | | | | sinus tachycardia | | | | | Transient cerebral | | | | | ischemia, | | | | | unspecified type | | | | | HTN, goal below | | | | | 130/80 Sleep apnea | | | | | with use of | | | | | continuous positive | | | | | airway pressure | | | | | (CPAP) | | + +--------+ + + as of this encounter Procedures + +--------+ + + + | Procedure Name | Priori | Date/Time | Associated Diagnosis | Comments | | | ty | | | | + +--------+ + + + | EKG STANDARD 12 LEAD | Routin | 04/26/2018 | Morbid obesity | Results for this | | | e | 2:36 PM | with alveolar | procedure are in the | | | | PDT | hypoventilation | results section. | | | | | (HCC) History of | | | | | | sinus tachycardia | | | | | | Transient cerebral | | | | | | ischemia, | | | | | | unspecified type | | | | | | HTN, goal below | | | | | | 130/80 Pure | | | | | | hyperglyceridemia | | | | | | Edema, unspecified | | | | | | type Sleep apnea | | | | | | with use of | | | | | | continuous positive | | | | | | airway pressure | | | | | | (CPAP) Hypokalemia | | + +--------+ + + + in this encounter Results EKG STANDARD 12 LEAD (04/26/2018 2:36 PM) + + + + + | Component | Value | Ref Range | Performed At | + + + + + | Ventricular Rate | 75 | BPM | [facility] | + + + + + | Atrial Rate | 75 | BPM | [facility] | + + + + + | P-R Interval | 174 | ms | [facility] | + + + + + | QRS Duration | 88 | ms | [facility] | + + + + + | Q-T Interval | 416 | ms | [facility] | + + + + + | QTC Calculation | 464 | ms | [facility] | | (Bezet) | | | | + + + + + | Calculated P [place] | 32 | degrees | [facility] | + + + + + | Calculated R [place] | 75 | degrees | [facility] | + + + + + | Calculated T [place] | 40 | degrees | [facility] | + + + + + | Diagnosis | Please refer to | | [facility] | | | Providers office visit | | | | | note for Providers | | | | | Interpretation.Confirmed | | | | | by [facility] [place] Read Only, | | | | | [facility] ([id number]), | | | | | manager editorial [place]to | | | | | ([id number]) on 04/26/2018 | | | | | 3:46:10 PM | | | + + + + + + + + + + | Performing | Address | City/State/Zipcode | Phone Number | | Organization | | | | + + + + + | [facility] | [address] | [place] [address] | | + + + + + in this encounter Visit Diagnoses + + | Diagnosis | + + | Morbid obesity with alveolar hypoventilation (HCC) - Primary | + + | History of sinus tachycardia | + + | Personal history of other diseases of circulatory system | + + | Transient cerebral ischemia, unspecified type | + + | HTN, goal below 130/80 | + + | Unspecified essential hypertension | + + | Pure hyperglyceridemia | + + | Edema, unspecified type | + + | Sleep apnea with use of continuous positive airway pressure (CPAP) | + + | Hypokalemia | + + | Hypopotassemia | + + | Dehydration, mild | + + | Dehydration | + + | History of bariatric surgery | + + | Bariatric surgery status | + +
--- OUTSIDE RECORDS SUMMARY | ~2018-04-27 | XMS | Encounter Summary ---
Demographics + + + | Address | [address] | | | [place] [address] | + + + | Home Phone [...] + | KENNY BERRY | ECON | [address] | | | | | [place], [place] | | | | | [address] | | + + + + + | MAXIMILIANO FARRELL | ECON | Unknown | | + + + + + Care Team Providers + +------+ + | Care National Recruiter Name | Role | Phone | [...] | Visit | Medicine Clinic at | DNP,ANP [address] | (Primary Dx) | | | | [facility] 4th Floor [address] | | | | | [address] | [place], [place] | | | | | Code: [address] | [address] | | | | | for Health and | [phone] | | | | | Healing, 4th Floor | | | | | | [place], [place] | | | | | | [address] | | | | | | [phone] | | | +--------+---------+ + + + [...] No LDAs on file. | + + in this encounter Social History + +-------+ [...] Pressure | 144/90 | 02/22/2018 1:11 PM PDT | + + + + | Pulse | 122 | 02/22/2018 1:11 PM PDT | + + + + | Temperature | 36.5 C (97.7 F) | 02/22/2018 1:11 PM PDT | + + + + | Respiratory Rate | 14 | 02/22/2018 1:11 PM PDT | + + + + | Oxygen Saturation | 95% | 02/22/2018 1:11 PM PDT | + + + + | Inhaled Oxygen | - | - | | Concentration | | | + + + + | Weight | 171.9 kg (379 lb) | 02/22/2018 1:11 PM PDT | + + + + | Height | 149.9 cm (4' 11") | 02/22/2018 1:11 PM PDT | + + + + | Body Mass Index | 76.55 | 02/22/2018 1:11 PM PDT | + + + + in this encounter Instructions Patient Instructions - Gay Hoff DNP,ANP - 02/22/2018 1:10 PM [...] or walk. Surgery check-in location: Admitting - [facility], [facility] Surgery Check in Time: The Preoperative Medicine [...] it is after office hours, call the [facility] facing machine operator at [phone] and ask them to page him or h er. in this encounter Progress Notes Carlyle Dejesus MA - 02/22/2018 1:10 PM PDTVenipuncture performed in clinic, blood griselda ple obtained from Right hand site Gay Hoff DNP,KRISHNA - 02/22/2018 1:10 PM PDTFormattin g of this note may be different from the original. PREOPERATIVE CONSULT [...] d function per TTE ( 02/16/2017) from [facility]: Improved and stable. 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 CALCIUM [id number]-GENIS ORAL Take 2 tablets by mouth two times daily. ergocalciferol (VITAMIN D2) 50,000 unit oral capsule Take 50,000 Units by mouth twice w (on Thursday and ). Ferrous Gluconate 324 [...] Andie Brian Incisional hernia repair 03/01/2015 [facility]/ Dr. Cantu. Primary fascial closure and scar [...] 98ms, QTC 460ms, TTE ( 02/16/2017) - [employer] 1. Overall left ventricular systolic function is normal with, an EF between 60 - 65 %. 2. The right ventricle is normal in size and function. 3. No significant valvular abnormalities are noted. 4. In comparison to the previous (technically difficult) echocardiographic study done 01/01, no signfiicant changes are noted. TTE (02/17/2016) - [employer] Conclusions 1. There is normal left ventricular [...] and resp iratory change. TTE (11/07/2015) - [facility] Final Impressions: 1. The interpretation of images [...] d function per TTE ( 02/16/2017) form [facility]. Improved and stable. - Confirmed with Dr. [...] Advised to bring her own apparatus for [facility]. GERD - On omeprazole. Chronic Fluid retention [...] to this patient's care. Gay Hoff, ERENDIRA,ANP [facility] PREOPERATIVE MEDICINE CLINIC AT [facility] 4TH FLOOR [address] [facility] [place] [address] I spent time (45 minutes, >50% [...] patient verbalized understanding of the instructions given. in this encounter Plan of Treatment +--------+---------+ + + + | Date | Type | Specialty | Care Team | Description | +--------+---------+ + + + | 05/27/ | Office | Nutrition | Tejas Cevallos, | | | 2017 | Visit | | [address] | | | | | | [address] | | | | | | [place], [place] | | | | | | [address] | | +--------+---------+ + + + | 05/27/ | Office | Surgery | Ronna Clarke, | | | 2017 | Visit | | [facility] [address] | | | | | | [place], [place] | | | | | | [address] | | | | | | [phone] | | | | | | | | +--------+---------+ + + + | 05/27/ | Office | Pain Management | Demar Cueva, PhD | | | 2017 | Visit | | [address] | | | | | | [place], [place] | | | | | | [address] | | | | | | [phone] | | | | | | | | +--------+---------+ + + + | 06/04/ | Office | Cardiology | Randell Franks, | | | 2017 | Visit | | MD [address] | | | | | | [place] [facility] [place] | | | | | | [address] | | | | | | [phone] | | | | | | | | +--------+---------+ + + + + +--------+ + + | Name | Priori | Associated Diagnoses | Order Schedule | | | ty | | | + +--------+ + + | COMMUNICATION TO [facility] DRAW | Routin | Preop examination | Ordered: 02/22/2018 | | | e | | | + +--------+ + + as of this encounter Procedures + +--------+ + + + | Procedure Name | Priori | Date/Time | Associated Diagnosis | Comments | | | ty | | | | + +--------+ + + + | SD COLLECTION VENOUS | Routin | 02/22/2018 | [...] section. | + +--------+ + + + in this encounter Results CBC AND AUTO DIFF (02/22/2018 1:25 PM) + + + + + | Component | Value | Ref Range | Performed At | + + + + + | WHITE CELL COUNT | 16.06 (H) | 3.50 - 10.80 K/cu mm | [facility] | | | | | SERVICES, CORE | + + + + + | RED CELL COUNT | 5.12 | 4.00 - 5.20 M/cu mm | [facility] | | | | | SERVICES, CORE | + + + + + | HEMOGLOBIN | 14.3 | 12.0 - 16.0 g/dL | [facility] | | | | | SERVICES, CORE | + + + + + | HEMATOCRIT | 44.5 | 36.0 - 46.0 % | [facility] | | | | | SERVICES, CORE | + + + + + | MCV | 86.9 | 80.0 - 100.0 fL | [facility] | | | | | SERVICES, CORE | + + + + + | MCHC | 32.1 | 32.0 - 36.0 g/dL | [facility] | | | | | SERVICES, CORE | + + + + + | RDW SD | 51.3 (H) | 35.1 - 46.3 fL | [facility] | | | | | SERVICES, CORE | + + + + + | PLATELET COUNT | 279 | 150 - 400 K/cu mm | [facility] | | | | | SERVICES, CORE | + + + + + | MPV | 10.0 | 9.7 - 12.3 fL | [facility] | | | | | SERVICES, CORE | + + + + + | NRBC% | 0.0 | 0.0 - 0.3 % | [facility] | | | | | SERVICES, CORE | + + + + + | NRBC# | 0.00 | 0.00 - 0.02 K/cu mm | [facility] | | | | | SERVICES, CORE | + + + + + | NEUTROPHIL % | 68.2 | 50.0 - 70.0 % | [facility] | | | | | SERVICES, CORE | + + + + + | LYMPHOCYTE % | 22.2 | 18.0 - 42.0 % | [facility] | | | | | SERVICES, CORE | + + + + + | MONOCYTE % | 7.1 | 3.5 - 9.0 % | [facility] | | | | | SERVICES, CORE | + + + + + | EOS % | 1.3 | 1.0 - 3.0 % | [facility] | | | | | SERVICES, CORE | + + + + + | BASO % | 0.5 | 0.0 - 2.0 % | [facility] | | | | | SERVICES, CORE | + + + + + | IG% | 0.7Comment: Increased | 0.0 - 1.0 % | [facility] | | | immature granulocytes | | SERVICES, CORE | | | (IG) define a left | | | | | shift. Immature | | | | | granulocytes (IG) are an | | | | | automated count of | | | | | metamyelocytes, | | | | | myelocytes and | | | | | promyelocytes. Bands | | | | | are not included in the | | | | | IG count. Bands are | | | | | included in the | | | | | neutrophil count. | | | + + + + + | NEUTROPHIL # | 10.95 (H) | 1.80 - 7.70 K/cu mm | [facility] | | | | | SERVICES, CORE | + + + + + | LYMPHOCYTE # | 3.57 | 1.00 - 4.80 K/cu mm | [facility] | | | | | SERVICES, CORE | + + + + + | MONOCYTE # | 1.14 (H) | 0.10 - 0.90 K/cu mm | [facility] | | | | | SERVICES, CORE | + + + + + | EOS # | 0.21 | 0.00 - 0.50 K/cu mm | [facility] | | | | | SERVICES, CORE | + + + + + | BASO # | 0.08 | 0.00 - 0.10 K/cu mm | [facility] | | | | | SERVICES, CORE | + + + + + | IG# | 0.11 (H) | 0.00 - 0.10 K/cu mm | [facility] | | | | | SERVICES, CORE | + + + + + + + | Specimen | + + | Blood - Blood | + + + + + | Narrative | Performed At | + + + | New pediatric reference ranges for Lymphocyte % in effect January 07 | [facility] | | 2018. New reference [...] | + + + + + | [facility] | [address] | [place] [address] | | | SERVICES, CORE | [address] | | | + + + + + ANTIBODY SCREEN (02/22/2018 1:25 PM) + + + + + | Component | Value | Ref Range | Performed At | + + + + + | Antibody Screen | Negative | | [facility] | | | | | SERVICES, | | | | | TRANSFUSION | | | | | MEDICINE | + + + + + + + | Specimen | + + | Blood - Blood | + + + + + + + | Performing | Address | City/State/Zipcode | Phone Number | | Organization | | | | + + + + + | [facility] | [address] | [place] [address] | | | SERVICES, | [address] | | | | TRANSFUSION MEDICINE | | | | + + + + + ABO & RH TYPE (02/22/2018 1:25 PM) + + + + + | Component | Value | Ref Range | Performed At | + + + + + | ABO Group | A | | [facility] | | | | | SERVICES, | | | | | TRANSFUSION | | | | | MEDICINE | + + + + + | Rh Type | Positive | | [facility] | | | | | SERVICES, | | | | | TRANSFUSION | | | | | MEDICINE | + + + + + + + | Specimen | + + | Blood - Blood | + + + + + + + | Performing | Address | City/State/Zipcode | Phone Number | | Organization | | | | + + + + + | [facility] | [address] | [place] [address] | | | SERVICES, | [address] | | | | TRANSFUSION MEDICINE | | | | + + + + + HEMOGLOBIN A1C, BLOOD (02/22/2018 1:25 PM) + + + + + | Component | Value | Ref Range | Performed At | + + + + + | HEMOGLOBIN A1C | 7.1 (H)Comment: Hgb A1C | <5.7 % | [facility] | | | Interpretive | | SERVICES, | | | Information: | | SPECIAL IMM + | | | <5.7% - | | COAG | | | Normal 5.7-6.4% - | | | | | Consistent with | | | | | pre-diabetes | | | | | >6.4% - Consistent with | | | | | diabetes | | | + + + + + + + | Specimen | + + | Blood - Blood | + + + + + | Narrative | Performed At | + + + | Alternate forms of testing such as fructosamine should be | [facility] | | considered for monitoring lsat instructor glycemic control in patients with: | LABORATORY [...] | + + + + + | [facility] | [address] | [place] [address] | | | SERVICES, SPECIAL | [address] | | | | IMM + COAG | | | | + + + + + COMPLETE METABOLIC SET (NA,K,CL,CO2,BUN,CREAT,GLUC,CA,AST,ALT,BILI TOTAL,ALK PHOS,ALB,PROT TOTAL) (02/22/2018 1:25 PM) + +---------+ + + | Component | Value | Ref Range | Performed At | + +---------+ + + | GLUCOSE, PLASMA | 130 (H) | 70 - 99 mg/dL | [facility] | | (LAB) | | | SERVICES, CORE | + +---------+ + + | BUN, PLASMA (LAB) | 25 (H) | 6 - 20 mg/dL | [facility] | | | | | SERVICES, CORE | + +---------+ + + | CREATININE PLASMA | 0.93 | 0.60 - 1.10 mg/dL | [facility] | | (LAB) | | | SERVICES, CORE | + +---------+ + + | EGFR - | >60 | >60 mL/min | [facility] | | [place] | | | [facility], CORE | + +---------+ + + | EGFR NON | >60 | >60 mL/min | [facility] | | [place] | | | [place], CORE | + +---------+ + + | SODIUM, PLASMA (LAB) | 138 | 136 - 145 mmol/L | [facility] | | | | | SERVICES, CORE | + +---------+ + + | POTASSIUM, PLASMA | 3.5 | 3.4 - 5.0 mmol/L | [facility] | | (LAB) | | | SERVICES, CORE | + +---------+ + + | CHLORIDE, PLASMA | 106 | 97 - 108 mmol/L | [facility] | | (LAB) | | | SERVICES, CORE | + +---------+ + + | TOTAL CO2, PLASMA | 22 | 21 - 32 mmol/L | [facility] | | (LAB) | | | SERVICES, CORE | + +---------+ + + | CALCIUM, PLASMA | 9.5 | 8.6 - 10.2 mg/dL | [facility] | | (LAB) | | | SERVICES, CORE | + +---------+ + + | CALCIUM(ALB | 10.1 | 8.6 - 10.2 mg/dL | [facility] | | CORRECTED) | | | [facility], CORE | + +---------+ + + | BILIRUBIN TOTAL | 0.5 | 0.3 - 1.2 mg/dL | [facility] | | | | | SERVICES, CORE | + +---------+ + + | TOTAL PROTEIN, | 8.2 | 6.4 - 8.2 g/dL | [facility] | | PLASMA (LAB) | | | [facility] | + +---------+ + + | ALBUMIN, PLASMA | 3.3 (L) | 3.5 - 4.7 g/dL | [facility] | | (LAB) | | | [facility] | + +---------+ + + | ALK PHOS | 109 (H) | 42 - 98 U/L | [facility] | | | | | SERVICES, CORE | + +---------+ + + | AST(SGOT) | 20 | <=41 U/L | [facility] | | | | | SERVICES, CORE | + +---------+ + + | ALT (SGPT) | 29 | <=60 U/L | [facility] | | | | | SERVICES, CORE | + +---------+ + + | ANION GAP | 10 | 4 - 11 mmol/L | [facility] | | | | | SERVICES, CORE | + +---------+ + + | ANION GAP(ALB | 11 | 4 - 11 mmol/L | [facility] | | CORRECTED) | | | SERVICES, CORE | + +---------+ + + | POTASSIUM CMNT | No Hemo | | [facility] | | | | | SERVICES, CORE | + +---------+ + + | BILI T CMNT | No Hemo | | [facility] | | | | | SERVICES, CORE | + +---------+ + + | AST CMNT | No Hemo | | [facility] | | | | | SERVICES, CORE | + +---------+ + + + + | Specimen | + + | Blood - Blood | + + + + + | Narrative | Performed At | + + + | GFR is estimated using the MDRD equation recommended by the | [facility] | | National Kidney Disease Education Program. Estimated GFR | LABORATORY | | Interpretive Information: <60 mL/min/1.73 sq | [place], CORE | | m Chronic Kidney Disease <15 mL/min/1.73 | | | sq m Kidney Failure Estimated GFR greater | | | that 60 mL/min/1.73 sq m is of limited clinical value. The MDRD | | | equation is not valid in the following situations: - Patients under | | | 18 years of age - Severe malnutrition or obesity - Vegetarian diet | | | - Rapidly changing kidney function - Amputees, paraplegics, or other | | | muscle-wasting diseses | | + + + + + + + + | Performing | Address | City/State/Zipcode | Phone Number | | Organization | | | | + + + + + | [facility] | [address] | [place] [address] | | | [address] | [address] | | | + + + + + 12 LEAD ECG (02/22/2018 1:18 PM) + + + + + | Component | Value | Ref Range | Performed At | + + + + + | VENTRICULAR RATE | 110 | bpm | [facility] | | | | | [facility] | + + + + + | ATRIAL RATE | 110 | ms | [facility] | | | | | [facility] | + + + + + | P-R INTERVAL | 170 | ms | [facility] | | | | | [facility] | + + + + + | P AXIS | 44 | deg | [facility] | | | | | [facility] | + + + + + | QRS DURATION | 98 | ms | [facility] | | | | | [facility]OLOG[facility] | + + + + + | QT | 339 | ms | [facility] | | | | | [facility]ARDIOLOG[facility] | + + + + + | QTCB | 460 | ms | [facility] | | | | | [facility]ARD[facility]OLOG[facility] | + + + + + | R AXIS | -54 | deg | [facility] | | | | | [facility]ARD[facility]OLOG[facility] | + + + + + | T AXIS | 14 | deg | [facility] | | | | | [facility]ARDIOLOG[facility] | + + + + + | ECG IMPRESSION | Sinus tachycardia | | [facility] | | | | | CARDIOLOGY | + + + + + | ECG IMPRESSION | Borderline right axis | | [facility] | | | deviation- OTHERWISE | | CARDIOLOGY | | | NORMAL ECG - | | | + + + + + | ECG IMPRESSION | Electronically signed | | [facility] | | | by: JULIO FRIEND | | CARDIOLOGY | | | 02-22-2018 22:41:36 | | | + + + + + + + + | Narrative | Performed At | + + + | | | + + + + + + + + | Performing | Address | City/State/Zipcode | Phone Number | | Organization | | | | + + + + + | [facility] | [address] | [place], [place] | | | CARDIOLOGY | [address] | [address] | | + + + + + in this encounter Visit Diagnoses + + | Diagnosis | + + | Preop examination - Primary | + + | Preoperative examination, unspecified | + +
--- OUTSIDE RECORDS SUMMARY | ~2018-04-27 | XMS | Encounter Summary ---
Demographics + + + | Address | [address] | | | [place] [address] | + + + | Home Phone [...] + | KENNY BERRY | ECON | [address] | | | | | [place], [place] | | | | | [address] | | + + + + + | MAXIMILIANO FARRELL | ECON | Unknown | | + + + + + Care Team Providers + +------+ + | Care Director Of Safety And Security Name | Role | Phone | + [...] Anesthesia | 6A Intra Op [facility] | Sree, | | | 2017 | Event | [facility] | Jason Murcia MD | | | | | Admitting Desk | [address] | | | | | Located on the 9th [facility], | | | | | floor [address] [facility] [address] | | | | | [facility] | [phone] | | | | | [place], [place] | | | | | | [address] | | | +--------+ + + + + Anesthesia Record + + + + + | Procedure Name | Responsible | Anesthesia Start | Anesthesia Stop Time | | | Anesthesiologist | Time | | + + + + + | LAPAROSCOPIC | Aimee Hurst, | 03/01/18 08 | 03/01/18 1216 | | NISH-EN-Y GASTRIC | PhD WEI | | | | BYPASS (N/A Abdomen) | | | | + + + + + +----+---+ + + | Da | T | Event | Comment | | te | i | | | | | m | | | | | e | | | +----+---+ + + | 08 | 0 | Pt. Check | Prior to anesthesia start, pt. Identified, examined, chart | | /0 | 8 | | reviewed, PARQ held, anesthetic plan made or approved by | | 6/ | 1 | | attending anesthesiologist. NPO status confirmed as appropriate | | 20 | 7 | | for procedure Preoperative evaluation: unchanged | | 18 | | | | [...] +----+---+ + + | | 0 | Pause | | | | 9 | | [...] 921; Dannie; Midline; | 03/01/18921 by | | | on | adb- upper quadrant | Ethel Brito RN | | +--------+ + + + | Incisi | 03/01/18; 923; Dannie; Right; | 03/01/18923 by | | [...] + + + | Incisi | 03/01/18; 1050; Dannie MD ; | 03/01/18 105 by | | | on | Anterior, Upper; epigastrium | Erin Odell RN | | +--------+ + + + | Periph | 03/01/18; 0736; Jaymie VAT; Right; | 03/01/18 0736 by | 03/02/18 0000 by | | sen | Anterior; Forearm; 22 g; None; | Leslie Smiley, | Mojgan Harvey RN | | IV | No; Positive; 03/02/18 | RN | | +--------+ + + + | Periph | 03/01/18; 0905; treggiari; Right; | 03/01/18 0905 by | 03/02/18 1430 by | | sen | Wrist; 18 g; Positive; 03/02/18; | Jason Murcia | Diana Trejo RN | | IV | 1430; Per protocol | MD Sree | | +--------+ + + + in this encounter Social History [...] [address] | | | | | | [place] | | | | | | [address] | | +--------+---------+ + + + | 05/27/ | Office | Surgery | Ronna Clarke, | | | 2017 | Visit | | ACN [address] | | | | | | [place] | | | | | | [address] | | | | | | [phone] | | | | | | | | +--------+---------+ + + + | 05/27/ | Office | Pain Management | Demar Cueva, PhD | | | 2017 | Visit | | [address] | | | | | | [place], [place] | | | | | | [address] | | | | | | [phone] | | | | | | | | +--------+---------+ + + + | 06/04/ | Office | Cardiology | Randell Franks, | | | 2017 | Visit | | [address] | | | | | | [place], [place] | | | | | | [address] | | | | | | [phone] | | | | | | | | +--------+---------+ + + + as of this encounter Johnathon CASH (03/01/2018 9:42 AM) + + + | Narrative | Performed [...] by Resident | | + + + in this encounter Visit Diagnoses Not on filein this encounter Administered Medications + +--------+ + +------+------+ | Medication Order | MAR | Action | Dose | Rate | Site | | | Action | Date | | | | + +--------+ + +------+------+ | ceFAZolin (ANCEF) injection | Given | 03/01/2018 | 3,000 mg | | | | INTRAPROCEDURE PRN, Starting Mon | | 09:15 | | | | | 03/01/18 at 0915, Until Thu03/01/18 | | PDT | | | | | at 1209 | | | | | | + +--------+ + +------+------+ +---+---+ | | | +---+---+ + +-------+ +------+---+---+ | dexamethasone (DECADRON) | Given | 03/01/2018 | 4 mg | | | | injection INTRAPROCEDURE PRN, | | 09:18 | | | | | Starting Thu03/01/18 at 0918, | | PDT | | | | | Until Thu03/01/18 at 1209 | | | | | | + +-------+ +------+---+---+ +---+---+ | | | +---+---+ + +-------+ +--------+---+---+ | fentaNYL (SUBLIMAZE) injection | Given | 03/01/2018 | 50 mcg | | | | INTRAPROCEDURE PRN, Starting Mon | | 09:18 | | | | | 03/01/18 at 0918, Until Thu03/01/18 | | PDT | | | | | at 1209 | | | | | | + +-------+ +--------+---+---+ +-------+ +--------+---+---+ | Given | 03/01/2018 | 50 mcg | | | | | 10:52 | | | | | | PDT | | | | +-------+ +--------+---+---+ | Given | 03/01/2018 | 50 mcg | | | | | 12:37 | | | | | | PDT | | | | +-------+ +--------+---+---+ +---+---+ | | | +---+---+ + +-------+ +--------+---+---+ | glycopyrrolate (TREVER) | Given | 03/01/2018 | 0.6 mg | | | | injection INTRAPROCEDURE PRN, | | 11:44 | | | | | Starting 03/01/18 at 1144, | | PDT | | | | | Until Thu03/01/18 at 1209 | | | | | | + +-------+ +--------+---+---+ +---+---+ | | | +---+---+ + +-------+ +--------+---+---+ | HYDROmorphone (DILAUDID) | Given | 03/01/2018 | 0.3 mg | | | | injection INTRAPROCEDURE PRN, | | 11:16 | | | | | Starting Thu03/01/18 at 1116, | | PDT | | | | | Until Thu03/01/18 at 1209 | | | | | | + +-------+ +--------+---+---+ +-------+ +--------+---+---+ | Given | 03/01/2018 | 0.2 mg | | | | | 11:47 | | | | | | PDT | | | | +-------+ +--------+---+---+ | Given | 03/01/2018 | 0.2 mg | | | | | 11:54 | | | | | | PDT | | | | +-------+ +--------+---+---+ +---+---+ | | | +---+---+ + +---------+ +---+---+---+ | lactated Ringers IV 10 mL/hr, | New Bag | 03/01/2018 | | | | | intravenous, PROCEDURE | | 08:17 | | | | | CONTINUOUS, Starting 03/01/18 | | PDT | | | | | at 0615, Until Thu03/01/18 at 1410 | | | | | | + +---------+ +---+---+---+ + + +---+---+---+ | New Bag | 03/01/2018 | | | | | | 09:25 | | | | | | PDT | | | | + + +---+---+---+ | given by anesthesiology | 03/01/2018 | | | | | | 11:20 | | | | | | PDT | | | | + + +---+---+---+ +---+---+ | | | +---+---+ + +-------+ +--------+---+---+ | lidocaine (XYLOCAINE MPF) 2 % | Given | 03/01/2018 | 100 mg | | | | (20 mg/mL) injection | | 08:40 | | | | | INTRAPROCEDURE PRN, Starting Mon | | PDT | | | | | 03/01/18 at 0840, Until 03/01/18 | | | | | | | at 1209 | | | | | | + +-------+ +--------+---+---+ +---+---+ | | | +---+---+ + +-------+ +------+---+---+ | midazolam (PF) (VERSED) | Given | 03/01/2018 | 2 mg | | | | injection INTRAPROCEDURE PRN, | | 08:24 | | | | | Starting 03/01/18 at 0824, | | PDT | | | | | Until 03/01/18 at 1209 | | | | | | + +-------+ +------+---+---+ +---+---+ | | | +---+---+ + +-------+ +------+---+---+ | neostigmine (PROSTIGMIN) | Given | 03/01/2018 | 5 mg | | | | injection intravenous, | | 11:44 | | | | | INTRAPROCEDURE PRN, Starting Mon | | PDT | | | | | 03/01/18 at 1144, Until Thu03/01/18 | | | | | | | at 1209 | | | | | | + +-------+ +------+---+---+ +---+---+ | | | +---+---+ + +-------+ +------+---+---+ | ondansetron (ZOFRAN) injection | Given | 03/01/2018 | 4 mg | | | | INTRAPROCEDURE PRN, Starting Mon | | 11:36 | | | | | 03/01/18 at 1136, Until Thu03/01/18 | | PDT | | | | | at 1209 | | | | | | + +-------+ +------+---+---+ +---+---+ | | | +---+---+ + +---------+ + +---+---+ | propofol (DIPRIVAN) 200 mg | New Bag | 03/01/2018 | 25 | | | | INTRAPROCEDURE CONTINUOUS PRN, | | 09:40 | mcg/kg/m | | | | Starting Thu03/01/18 at 0940, | | PDT | in | | | | Until Thu03/01/18 at 1209 | | | | | | + +---------+ + +---+---+ +---+---+ | | | +---+---+ + +-------+ +--------+---+---+ | propofol (DIPRIVAN) injection | Given | 03/01/2018 | 180 mg | | | | INTRAPROCEDURE PRN, Starting Mon | | 08:40 | | | | | 03/01/18 at 0840, Until Thu03/01/18 | | PDT | | | | | at 1209 | | | | | | + +-------+ +--------+---+---+ +-------+ +-------+---+---+ | Given | 03/01/2018 | 30 mg | | | | | 10:51 | | | | | | PDT | | | | +-------+ +-------+---+---+ +---+---+ | | | +---+---+ + +-------+ +-------+---+---+ | rocuronium (ZEMURON) injection | Given | 03/01/2018 | 20 mg | | | | INTRAPROCEDURE PRN, Starting Mon | | 10:01 | | | | | 03/01/18 at 0840, Until 03/01/18 | | PDT | | | | | at 1209 | | | | | | + +-------+ +-------+---+---+ +-------+ +-------+---+---+ | Given | 03/01/2018 | 10 mg | | | | | 10:51 | | | | | | PDT | | | | +-------+ +-------+---+---+ | Given | 03/01/2018 | 10 mg | | | | | 11:15 | | | | | | PDT | | | | +-------+ +-------+---+---+ +---+---+ | | | +---+---+ + +-------+ +--------+---+---+ | sugammadex (BRIDION) IV | Given | 03/01/2018 | 200 mg | | | | INTRAPROCEDURE PRN, Starting Mon | | 12:06 | | | | | 03/01/18 at 1206, Until Thu03/01/18 | | PDT | | | | | at 1209 | | | | | | + +-------+ +--------+---+---+ +---+---+ | | | +---+---+ in this encounter"
--- OUTSIDE RECORDS SUMMARY | ~2018-04-27 | XMS | Encounter Summary ---
Demographics + + + | Address | [address] | | | [place] [address] | + + + | Home Phone [...] + | KENNY BERRY | ECON | [address] | | | | | [place], [place] | | | | | [address] | | + + + + + | MAXIMILIANO FARRELL | ECON | Unknown | | + + + + + Care Team Providers + +------+ + | Care Scrap Drop Crane Operator Name | Role | Phone | [...] | | | | | | [address] | | | | | | [address] | | | | | | [place], [place] | | | | | | [address] | | | +--------+ + + + [...] + + + as of this encounter Functional Status + [...] | | | + + + + as of this encounter Plan of Treatment +--------+---------+ + + + | Date | Type | Specialty | Care Team | Description | +--------+---------+ + + + | 05/27/ | Office | Nutrition | Tejas Cevallos, | | | 2018 | Visit | | [address] [facility] | | | | | | [address] | | | | | | [place], [place] | | | | | | [address] | | +--------+---------+ + + + | 05/27/ | Office | Surgery | Ronna Clarke, | | | 2017 | Visit | | ACNP [address] | | | | | | [place] | | | | | | [address] | | | | | | [phone] | | | | | | | | +--------+---------+ + + + | 05/27/ | Office | Pain Management | Demar Cueva, PhD | | | 2017 | Visit | | [address] | | | | | | [place] | | | | | | [address] | | | | | | [phone] | | | | | | | | +--------+---------+ + + + | 06/04/ | Office | Cardiology | Randell Franks, | | | 2017 | Visit | | MD [address] | | | | | | [place], [place] | | | | | | [address] | | | | | | [phone] | | | | | | | | +--------+---------+ + + + as of this encounter Visit Diagnoses Not on filein this encounter"
--- OUTSIDE RECORDS SUMMARY | ~2018-04-27 | XMS | Encounter Summary ---
Demographics + + + | Address | [address] | | | [place] [address] | + + + | Home Phone [...] + | KENNY BERRY | ECON | [address] | | | | | [place], [place] | | | | | [address] | | + + + + + | MAXIMILIANO FARRELL | ECON | Unknown | | + + + + + Care Team Providers + +------+ + | Care Superintendent Production Name | Role | Phone | + [...] Road | | | | | | [place], [place] | | | | | | [address] | | | +--------+ + + + [...] | 2017 | Visit | | [address] [facility] | | | | | | [address] | | | | | | [place], [place] | | | | | | [address] | | +--------+---------+ + + + | 05/27/ | Office | Surgery | Ronna Clarke, | | | 2017 | Visit | | ACNP [address] | | | | | | Ave [place], [place] | | | | | | [address] | | | | | | [phone] | | | | | | | | +--------+---------+ + + + | 05/27/ | Office | Pain Management | Demar Cueva, PhD | | | 2017 | Visit | | [address] | | | | | | [place] | | | | | | [address] | | | | | | [phone] | | | | | | | | +--------+---------+ + + + | 06/04/ | Office | Cardiology | Randell Franks, | | | 2017 | Visit | | MD [address] | | | | | | Ave [place], [place] | | | | | | [address] | | | | | | [phone] | | | | | | | | +--------+---------+ + + + as of this encounter Visit Diagnoses Not on filein this encounter"
--- OUTSIDE RECORDS SUMMARY | ~2018-04-27 | XMS | Encounter Summary ---
Demographics + + + | Address | [address] | | | [place] [address] | + + + | Home Phone [...] + | KENNY BERRY | ECON | [address] | | | | | [place], [place] | | | | | [address] | | + + + + + | MAXIMILIANO FARRELL | ECON | Unknown | | + + + + + Care Team Providers + +------+ + | Care Service Secretary Name | Role | Phone | + [...] | | 2018 | | Center at [facility] 6th | [facility] [address] | | | | | Floor [address] | [place], [place] | | | | | [facility] Mailcode: [facility] | [address] | | | | | [facility] | [phone] | | | | | and [place], 6th | | | | | | floor [place], [place] | | | | | | [address] | | | | | | [phone] | | | +--------+ + + + [...] | | 2017 | Visit | | [address] | | | | | | [address] | | | | | | [place], [place] | | | | | | [address] | | +--------+---------+ + + + | 05/27/ | Office | Surgery | Ronna Clarke, | | | 2017 | Visit | | KAIN [address] | | | | | | [place], [place] | | | | | | [address] | | | | | | [phone] | | | | | | | | +--------+---------+ + + + | 05/27/ | Office | Pain Management | Demar Cueva, PhD | | | 2017 | Visit | | [address] | | | | | | [facility] [place] | | | | | | [address] | | | | | | [phone] | | | | | | | | +--------+---------+ + + + | 06/04/ | Office | Cardiology | Randell Franks, | | | 2017 | Visit | | MD [address] | | | | | | [place] [facility] [place] | | | | | | [address] | | | | | | [phone] | | | | | | | | +--------+---------+ + + + as of this encounter Visit Diagnoses Not on filein this encounter"
--- OUTSIDE RECORDS SUMMARY | ~2018-04-27 | XMS | Encounter Summary ---
Demographics + + + | Address | [address] | | | [place] [address] | + + + | Home Phone [...] + | KENNY BERRY | ECON | [address] | | | | | [place], [place] | | | | | [address] | | + + + + + | MAXIMIILANO FARRELL ECON | Unknown | | + + + + + Care Team Providers + +------+ + | Care Emergency Dispatch Operator Name | Role | Phone | + +------+ + | Fadi Goodrich DO | PCP | | + +------+ + Encounter Details +--------+ + + + + | Date | Type | Department | Care Team | Description | +--------+ + + + + | 03/04/ | Telephone | Digestive Health | Ion Pandey, | | | 2018 | | Center [facility] 6th | MD [address] | | | | | Floor [address] | [facility] [place] | | | | | Ave Mailcode: [facility] | [address] | | | | | [facility] | | | | | | and Healing, 6th | | | | | | floor [place], [place] | | | | | | [address] | | | | | | | [...] Rd | | | | | | [place], [place] | | | | | | [address] | | +--------+---------+ + + + | 05/27/ | Office | Surgery | Ronna Clarke, | | | 2017 | Visit | | ACNP [address] | | | | | | [place], [place] | | | | | | [address] | | | | | | [phone] | | | | | | | | +--------+---------+ + + + | 05/27/ | Office | Pain Management | Demar Cueva, PhD | | | 2018 | Visit | | [address] [place] | | | | | | [place], [place] | | | | | | [address] | | | | | | [phone] | | | | | | | | +--------+---------+ + + + | 06/04/ | Office | Cardiology | Randell Franks, | | | 2017 | Visit | | [address] | | | | | | [place], [place] | | | | | | [address] | | | | | | [phone] | | | | | | | | +--------+---------+ + + + as of this encounter Visit Diagnoses Not on filein this encounter"
--- OUTSIDE RECORDS SUMMARY | ~2018-04-27 | XMS | Encounter Summary ---
Demographics + + + | Address | [address] | | | [place] [address] | + + + | Home Phone | | + + + | Preferred Language | Unknown | + + + | Marital Status | | + + + | Sikhism Affiliation | Unknown | + + + | Race | Unknown | + + + | Ethnic Group | Unknown | + + + Author + + + | Author | [facility] | + + + | Organization | [facility] | + + + | Address [...] Team Providers + +------+ + | Care Phlebotomy Lab Assistant Name | Role | Phone | [...] | Required | | obesity with | [address] | Sleep | | | | | alveolar | [address] | Disorders | | | | | hypoventilat | Roshan F | [facility] | | | | | ion (HCC) | [place], [place] | HOSPITAL | | | | | History of | [address] | [address] | | | | | sinus | Phone: | [address] | | | | | tachycardia | [phone] | [place], [place] | | | | | Transient | Fax: | [address] | | | | | cerebral | [phone] | Phone: | | | | | ischemia, | | [phone] | | | | | unspecified | | Fax: | | | | | type HTN, | | [phone] | | | | | goal below [...] | | 2018 | Visit | Card[facility] [place] | [address] | alveolar | | | | [address] | [address] | hypoventilation | | | | [address] | [place] [address] | ([facility]) (Primary Dx); | | | | [place] [address] | [phone] | History of sinus | | | | [phone] | | tachycardia; | | | | [...] have referred you to Dr. Rascon at [facility] , call [phone] for an appoi ntment next week You maybe dehydrated, try not eating any solids, just liquids for a few days, and try Pedi alyte, clear liquids, jello, Call [facility] today and tell them about not being able to keep food down and being dehydrated. , and that I ordered labs Call [facility] about results and how you are doing [...] for pérez atric surgery program at [facility]. I had also referred her for sleep apnea evaluation and treatment from Dr. Luis Eduardo Saba. She has a history of hypertension, hyperlipidemia, peripheral edema, and diastolic dysfun ction with previous dysfunctional RV treated at [facility] with diuresis and hospitalization for o ne month.. She also has a history of sleep apnea treated with BiPAP, type II diabetes, hyp othyroidism, morbid obesity with alveolar hypoventilation, osteoarthritis, stroke at the age of 18,deep vein thrombosis and PE within the last year, hypokalemia and hyperuricemia which is being followed by seamer panty hose Dr. Fu, and SELINA Escobar and last seen by the m on 09/2016 and note reviewed. Her previous testing and procedures are detailed below. She reports today that she vomiting, to her bariatric surgery on March 01, 2018 at [facility] and had Frandy-en-Y gastric bypass. Weight is [...] at the beginning of March at [facility] for similar concerns, but reports none of [...] by Dr. Franks, endocrin ologist at [facility]) . Denies excessive thirst or [...] knee pain and hernia pain Lives in [facility] her mother . Sister is resident care provider She also has a boyfriend who lives in [place]. Gini nguyen ages 6 and 9 live [...] D PO) Take by mouth. ergocalciferol (DRISDOL) 50379 UNITS capsule Take 50,000 Units by mouth [...] No results found for: METF, NMETFX, TFNMFX, RUFHGHI19ZOO, PLJIQK12DJO, TOTEPI ECHO: Last Echo: 02/16/2017: ([facility]): normal EF of 60-65% , accurate assessment of diastolic functi on impeded by poor tissue doppler, RV normal in size and function, with no significant valvu lar disease, and aortic root, ascending aorta , and aortic arch normal Echo: 01/02/2016 ([facility]): TDS, cardiac chamber dimensions grossly NML, LVEF >70%, rodriguez tolic function normal for patient. Unable to assess segmental wall motion. RV grossly norm al. Aortic valve sclerotic, no As/AI. Mitral and tricuspid valves grossly normal. Trace T R. No pericardial effusion VASCULAR TESTING AND PROCEDURES Venous US: right leg, 04/28/2016: No evidence of DVT. EKG EKG 10/27: ([facility]) Normal sinus rhythm. Normal EKG. Rate 93 bpm, SD 172 ms, QRS 90 ms, QTC 465 ms personally reviewed by me in the office today) EK02/05: Sinus tachycardia, otherwise normal. Rate 160 bpm, SD 174 ms, QRS 74 ms, QTC 451 ms (personally reviewed by me in the office today and no significant change seen fro m EKG done in October 2016 except for faster heart rate) EK04/26/2018: Normal sinus rhythm, rate 74 bpm, SD 182 ms, QRS 96 ms, QTC 472 [...] bypass surger y in February at [facility]. She has problems as detailed below. Her [...] I have advised her to call [facility] about these concerns, and have suggested she [...] have referred her to Dr. Rascon at [facility] . I made no changes [...] cardiac testing and procedure reports and d [facility], [facility] records,medication bottles not brought to the clinic today Allergies, current medications.labs Family history, past medical history, past social history, past surgical history. Problem list. SELINA Santos [facility] Cardiology 04/27/2018in this encounter Plan of Treatment +--------+---------+ + + + | Date | Type | Specialty | Care Team | Description | +--------+---------+ + + + | 07/29/ | Office | Cardiology | Sulema Altamirano | | | 2019 | Visit | | [address] | | | | | | [address] | | | | | | [place] [address] | | | | | | [phone] | | | | | | | [...] + + + + | Calculated P [place] | 32 | degrees | [facility] | + + + + + | Calculated R [place] | 75 | degrees | [facility] | + + + + + | Calculated T [place] | 40 | degrees | [facility] | + + + + + | Diagnosis | Please refer to | | [facility] | | | Providers office visit | | | | | note for Providers | | | | | Interpretation.Confirmed | | | | | by [facility] Justice Read Only, | | | | | ICA Ya ([id number]), | | | | | photo editor Glen Alberto | | | | | ([id number]) on 04/26/2018 | | | | | 3:46:10 PM | | | + + + + + + + + + + | Performing | Address | City/State/Zipcode | Phone Number | | Organization | | | | + + + + + | [facility] | [address] | [place] [address] | | + + + + + [...]
--- OUTSIDE RECORDS SUMMARY | ~2018-04-27 | XMS | Encounter Summary ---
Demographics + + + | Address | [address] | | | [place] [address] | + + + | Home Phone [...] + | KENNY BERRY | ECON | [address] | | | | | [place], [place] | | | | | [address] | | + + + + + | MAXIMILIANO FARRELL | ECON | Unknown | | + + + + + Care Team Providers + +------+ + | Care Teacher Education Instructor Name | Role | Phone | [...] Road | | | | | | [place], [place] | | | | | | [address] | | | +--------+ + + + [...] | 2018 | Visit | | [address] [facility] | | | | | | [address] | | | | | | [place], [place] | | | | | | [address] | | +--------+---------+ + + + | 05/27/ | Office | Surgery | Ronna Clarke, | | | 2017 | Visit | | ACNP [address] | | | | | | [place] | | | | | | [address] | | | | | | [phone] | | | | | | | | +--------+---------+ + + + | 05/27/ | Office | Pain Management | Demar Cueva, PhD | | | 2017 | Visit | | [address] | | | | | | [place] | | | | | | [address] | | | | | | [phone] | | | | | | | | +--------+---------+ + + + | 06/04/ | Office | Cardiology | Randell Franks, | | | 2017 | Visit | | MD [address] | | | | | | [place], [place] | | | | | | [address] | | | | | | [phone] | | | | | | | | +--------+---------+ + + + as of this encounter Visit Diagnoses Not on filein this encounter"
--- OUTSIDE RECORDS SUMMARY | ~2018-04-27 | XMS | Encounter Summary ---
Demographics + + + | Address | [address] | | | [place] [address] | + + + | Home Phone [...] + | KENNY BERRY | ECON | [address] | | | | | [place], [place] | | | | | [address] | | + + + + + | MAXIMILIANO FARRELL | ECON | Unknown | | + + + + + Care Team Providers + +------+ + | Care Refinery Operator Helper Crude Unit Name | Role | Phone [...] 03/10/ | Office | Digestive Health | Dione Andre, | Severe Morbid | | 2018 | Visit | Center at [facility] | [address] | obesity ([facility]), BMI | | | | Floor [address] | [address] | 88 (Primary Dx); | | | | [place] Mailcode: | [place], [place] | Type 2 diabetes | | | | [address] for | [address] | mellitus without | | | | Health and Healing | | complication, with | | | | [place], [place] | | long-term current | | | | [address] | | use of insulin | | | | [phone] | | ([facility]); S/P gastric | | | | | | bypass | +--------+---------+ + + + Social History [...] + + + + | Weight | 163.9 kg (361 lb 4.8 | 03/10/2018 1:33 PM PDT | | | oz) | | + + + + | Height | - | - | + + + + | Body Mass Index | 72.97 | 03/10/2018 1:33 PM PDT | + + + + in this encounter Functional Status + + [...] + as of this encounter Progress Notes Dione Andre, HA - 03/10/2018 1:30 PM PDTFormatting of this note may be different from the original. Nutrition Counseling: Post-op Bariatric Surgery Follow-Up Patient referred by: DO Vasyl [address] [place], [place] [id number] Documented time of visit: 1:30 to 2:00 (30 minutes dojq-sx-[id number] with patient) Surgery: Gastric Bypass Date of Surgery: 03/01/18 Subjective: Any reported changes: None Tolerating Bariatric Diet: Yes Current Physical Activity: walking Changes in Diabetes Medications since surgery: metformin 500 mg BID, tresiba 28 units Testing blood glucose: yes, FBG ~90-100 Objective: Ht Readings from Last 1 Encounters: 03/01/18 1.499 m (4' 11") Wt Readings from Last 2 Encounters: 03/10/18 163.9 kg (361 lb 4.8 oz) 03/01/18 169.1 kg (372 lb 12.8 oz) Body mass index is 72.97 kg/m. Weight change since surgery: lost 9 lbs PMHx: Past Medical History: Diagnosis Date [...] corporis UTI (urinary tract infection) Food logs: Yes, pen and paper Food choices: premier protein, tomato soup, cream of wheat, cottage cheese, SF pudding, gre ek light and fit Fluid choices: water, tea and broth, juice, milk, Supplementation: Flinstones, iron, vitamin D, vitamin C, Citracal supplement x 2 in the mor eusebio and 2 at night, magnesium, potassium, B12 Assessment: Following Bariatric Diet Protocol: Yes Meeting protein goals: Yes Meeting fluid goals: Yes Fluids from meals: Yes Plan: Reviewed nutrition goals after bariatric surgery. Aim for 64 ounces of fluid and 60-80 grams of protein per day. Continue to follow post-surgery bariatric diet progression: Continue stage 2 full liquid di et for now. On 03/15/18, begin stage 3 according to bariatric diet guidelines: -Provided written & verbal education/review on stage 3 guidelines, including grocery list of stage 3 foods and sample menus. -Begin introducing soft/ground/moist protein foods -Once meeting protein [...] meals by 30 minutes before & after Begin vitamin & mineral supplementation per post-bariatric surgery guidelines -complete multivitamin & mineral (with iron) supplement, 2/day -0914-4350 mg calcium citrate with vitamin D/day (take in divided doses, not within 2 hour s of multivitamin or iron supplement) (if not chewable or liquid, begin 2 weeks post-surgery ) -At 1 month post-op start 500 mcg/day sublingual B12 supplement (or monthly injections) Continued to reinforce importance of mindful eating. Continue to increase physical activity. Follow up in [address],LD Pager# [phone] Phone: [phone] in this encounter Plan of Treatment +--------+---------+ + + + | Date | Type | Specialty | Care Team | Description | +--------+---------+ + + + | 05/27/ | Office | Nutrition | Tejas Cevallos, | | | 2018 | Visit | | RD [address] [facility] | | | | | | [address] | | | | | | [place], [place] | | | | | | [address] | | +--------+---------+ + + + | 05/27/ | Office | Surgery | Ronna Clarke, | | | 2017 | Visit | | [address] | | | | | | [place], [place] | | | | | | [address] | | | | | | [phone] | | | | | | | | +--------+---------+ + + + | 05/27/ | Office | Pain Management | Demar Cueva, PhD | | | 2017 | Visit | | [address] | | | | | | [place], [place] | | | | | | [address] | | | | | | [phone] | | | | | | | | +--------+---------+ + + + | 06/04/ | Office | Cardiology | Randell Franks, | | | 2017 | Visit | | [address] | | | | | | [place], [place] | | | | | | [address] | | | | | | [phone] | | | | | | | | +--------+---------+ + + + as of this encounter Procedures + +--------+ + + + | Procedure Name | Priori | Date/Time | Associated Diagnosis | Comments | | | ty | | | | + +--------+ + + + | ND MNT RE-ASSESSMNT | Routin | 03/10/2018 | Severe Morbid | | | X15MIN | e | 2:36 PM | obesity (HCC), BMI | | | | | PDT | 88 Type 2 diabetes | | | | | | mellitus without | | | | | | complication, with | | | | | | long-term current | | | | | | use of insulin ([facility]) | | | | | | S/P gastric bypass | | + +--------+ + + + in this encounter Visit Diagnoses + + | Diagnosis | + + | Severe Morbid obesity (HCC), BMI 88 - Primary | + + | Morbid obesity | + + | Type 2 diabetes mellitus without complication, with long-term current use of insulin | | (HCC) | + + | S/P gastric bypass | + + | Bariatric surgery status | + +
--- OUTSIDE RECORDS SUMMARY | ~2018-04-27 | XMS | Encounter Summary ---
Demographics + + + | Address | [address] | | | [place] [address] | + + + | Home Phone [...] + | KENNY BERRY | ECON | [address] | | | | | [place], [place] | | | | | [address] | | + + + + + | MAXIMILIANO FARRELL | ECON | Unknown | | + + + + + Care Team Providers + +------+ + | Care Carding Supervisor Name | Role | Phone | + +------+ + | Fadi Goodrich DO | PCP | | + +------+ + Reason for Visit + + + | Reason | Comments | + + + | Postoperative visit | | + + + Office [...] Randell | Bariatric | | | with MEDICAL WRITER | | hypertension | [address] | | | | | Right | [address] | [address] | | | | | heart | [place], [place] | Ave | | | | | failure | [address] | Mailcode: | | | | | ([facility]) Type | Phone: | [address] | | | | | 2 diabetes | [phone] | for Health | | | | | mellitus | Fax: | and Healing, | | | | | without | [phone] | 6th floor | | | | | complication | | [place], [place] | | | | | , with | | [address] | | | | | long-term | | Phone: | | | | | current use | | [phone] | | | | | of insulin | | Fax: | | | | | ([facility]) | | [phone] | | | | | Procedures | [...] | 2018 | Visit | Center at [facility] 6th | MD [address] [place] | surgery (Primary | | | | Floor [address] | [place], [place] | Dx); History of | | | | Ave Mailcode: CH4S | [address] | Frandy-en-Y gastric | | | | [place] [facility] | [phone] | bypass | | | | and Healing, 6th | | | | | | floor [place], [place] | | | | | | [address] | | | | | | [phone] | | | +--------+---------+ + + + [...] Pressure | 110/79 | 04/01/2018 11:08 AM PDT | + + + + | Pulse | 102 | 04/01/2018 11:08 AM PDT | + + + + | Temperature | 36.4 C (97.6 F) | 04/01/2018 11:08 AM PDT | + + + + | Respiratory Rate | 18 | 04/01/2018 11:08 AM PDT | + + + + | Oxygen Saturation | - | - | + + + + | Inhaled Oxygen | - | - | | Concentration | | | + + + + | Weight | 157.9 kg (348 lb) | 04/01/2018 11:08 AM PDT | + + + + | Height | 149.9 cm (4' 11") | 04/01/2018 11:08 AM PDT | + + + + | Body Mass Index | 70.29 | 04/01/2018 11:08 AM PDT | + + + + [...] + + + as of this encounter Instructions Patient Instructions - Ion Pandey MD - 04/01/2018 11:00 AM PDTAVOID NSAIDs for lifelo ng to minimize the risk of ulcers If [...] to the healing stomach. There are also marine oil terminal superintendent complications of poor wound healing and gastric u lcers. These ulcers are started by smoking or using other nicotine products (vapor cigarett es etc). Gastric bypass patients should also avoid NSAIDS(ibuprofen, advil, motrin, naprosyn/naproxe n/aleve) to prevent gastric/marginal ulcers. Please visit with our Precast Concrete Ironworker (RD) for instructions about your Bariatric diet, assistance with calorie counts, tips and tricks for working with your diet restrictions, an d recipes after bariatric surgery. Daily yogurt; even just 1 tablespoon twice a day will provide enough probiotics to optimize digestion. Try to use a high-quality, probiotic-dense yogurt (eg Zaria's, Kobifield, Stacie eway Kefir, Embedded Systems Developer Duke's Green[place]ic Yogurt). Remember to chew your food well, [...] phone number). in this encounter Progress Notes Eldon Wagner [...] at 11:36 AM Eldon Wagner MD. Anisa Dillon MD - 04/01/2018 11:00 AM PDTFormatting of this note may be different fro m the original. BARIATRIC SURGERY POSTOP FOLLOW UP DATE OF [...] protein daily, and 64 oz water daily. Sanitation Worker Cleaning Equipment just changed diet to he lp her [...] by communicating with her mother - Follow Sanitation Worker Cleaning Equipment recommendations to help with nausea (decrease volume, [...] Anisa Dillon MD PGY-1, Red Surgery Pager: [phone] in this encounter Plan of Treatment +--------+---------+ + + + | Date | Type | Specialty | Care Team | Description | +--------+---------+ + + + | 05/27/ | Office | Nutrition | Tejas Cevallos, | | | 2017 | Visit | | [address] | | | | | | [address] | | | | | | [place], [place] | | | | | | [address] | | +--------+---------+ + + + | 05/27/ | Office | Surgery | Ronna Clarke, | | | 2017 | Visit | | ACNP [address] | | | | | | [place], [place] | | | | | | [address] | | | | | | [phone] | | | | | | | | +--------+---------+ + + + | 05/27/ | Office | Pain Management | Demar Cueva, PhD | | | 2017 | Visit | | [address] | | | | | | [place], [place] | | | | | | [address] | | | | | | [phone] | | | | | | | | +--------+---------+ + + + | 06/04/ | Office | Cardiology | Randell Franks, | | | 2018 | Visit | | MD [address] | | | | | | [place], [place] | | | | | | [address] | | | | | | [phone] | | | | | | | | +--------+---------+ + + + as of this encounter Visit Diagnoses + + | Diagnosis | + + | Aftercare following surgery - Primary | + + | Encounter for other specified aftercare | + + | History of Frandy-en-Y gastric bypass | + + | Bariatric surgery status | + +
--- OUTSIDE RECORDS SUMMARY | ~2018-04-27 | XMS | Encounter Summary ---
Demographics + + + | Address | [address] | | | [place] [address] | + + + | Home Phone [...] + | KENNY BERRY | ECON | [address] | | | | | [place], [place] | | | | | [address] | | + + + + + | MAXIMILIANO FARRELL | ECON | Unknown | | + + + + + Care Team Providers + +------+ + | Care Telecommunications Operator Name | Role | Phone | [...] | 2018 | Visit | Center at [facility] 6th | ACN [address] | gastric bypass | | | | Floor [address] | Ave [place], [place] | (Primary Dx); | | | | Ave Mailcode: CH4S | [address] | Ventral hernia | | | | [facility] | [phone] | without obstruction | | | | and Healing, 6th | | or gangrene; Mixed | | | | floor [place], [place] | | hyperlipidemia; | | | | [address] | | 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[phone] | | type 2 without | | [...] | | | | adult (HCC) | +--------+---------+ + [...] Pressure | 164/84 | 03/10/2018 3:26 PM PDT | + + + + | Pulse | 94 | 03/10/2018 3:26 PM PDT | + + + + | Temperature | 36.6 C (97.9 F) | 03/10/2018 3:26 PM PDT | + + + + | Respiratory Rate | 18 | 03/10/2018 3:26 PM PDT | + + + + | Oxygen Saturation | - | - | + + + + | Inhaled Oxygen | - | - | | Concentration | | | + + + + | Weight | 164 kg (361 lb 8 oz) | 03/10/2018 3:26 PM PDT | + + + + | Height | 149.9 cm (4' 11") | 03/10/2018 3:26 PM PDT | + + + + | Body Mass Index | 73.01 | 03/10/2018 3:26 PM PDT | + + + + [...] of this encounter Instructions Patient Instructions - Ronna Clarke ACNP - 03/10/2018 3:05 PM PDTAssessment/Plan: 1. S/P Frandy en y gastric bypass, Doing well at 9 days post op except for pain around abdomi nal incision-wound culture and she will call us tomorrow to tell us how she is doing Refill oxycodone Rx +Take acid clinical admissions manager for first 3 mos, then wean off [...] to POC and [facility]. in this encounter Progress Notes Ronna Clarke ACNP - 03/10/2018 3:05 PM PDTFormatting of this note may be different from the original. BARIATRIC FOLLOW-UP Elzbieta Cristina is [...] times daily. , Disp: , Rfl: CALCIUM [id number] ORAL, Take 2 tablets by mouth two [...] of 70 and over in adult ([facility]) Myalgia and myositis Nausea Neck pain Numbness [...] Dr. Andie Brian Incisional hernia repair 03/01/2015 [facility]/ Dr. Cantu. Primary fascial closure and [...] History Narrative Updated 11/09/15 She lives in [place] with her mother and her sister (also her caregiver) [facility]. She has 2 grandchildren (age 4 and 7) who live with her daughter and son-in-law Her boyfriend lives in [place] HFpEF, DM2, HTN, Sleep Apnea (unable to tolerate CPAP), Hypothyroidism, Severe Obesity ([facility] max weight 495 lbs) Last [...] program here and refer her to our communication specialist who also has expertise in physical [...] Increase torsemide to pre-surgical dose +Take acid clinical admissions manager for first 3 mos, then wean off [...] she will make an appointment with her Hse Specialist to discuss insulin dosing and CBGs 10. [...] to POC and will call or send Punch!t la ssage if any issues. Start time 15:35, end time 15:55. I spent a total of 20 minutes face to face with this pat ient. Over 50% of visit was in counseling. ~ 10 minutes of additional time spent reviewing chart prior to visit and documenting after this visit. Ronna Clarke DNP ACNP HANDLE BAR ASSEMBLER Bariatric Surgery Nurse Practitioner [facility] | [address] | [place] | [address] | in this encounter Plan of Treatment +--------+---------+ + + + | Date | Type | Specialty | Care Team | Description | +--------+---------+ + + + | 05/27/ | Office | Nutrition | Tejas Cevallos, | | | 2018 | Visit | | [address] | | | | | | [address] | | | | | | [place] | | | | | | [address] | | +--------+---------+ + + + | 05/27/ | Office | Surgery | Ronna Clarke, | | | 2017 | Visit | | ACNP [address] | | | | | | [place] [facility] [place] | | | | | | [address] | | | | | | [phone] | | | | | | | | +--------+---------+ + + + | 05/27/ | Office | Pain Management | Demar Cueva, PhD | | | 2018 | Visit | | [address] | | | | | | [place] | | | | | | [address] | | | | | | [phone] | | | | | | | | +--------+---------+ + + + | 06/04/ | Office | Cardiology | Randell Franks, | | | 2018 | Visit | | [address] | | | | | | [place] [facility] [place] | | | | | | [address] | | | | | | [phone] | | | | | | | [...] + + + in this encounter Results CULTURE, WOUND ABSCESS OR ASPIRATE W/ ANAEROBE (03/10/2018 3:55 PM) + + | Specimen | + + | Abscess | + + + + + | [...] + | [facility] | [address] | [place] [address] | | | [place] | | | | + + + + + in this encounter Visit Diagnoses + + | Diagnosis | + + | History of Frandy-en-Y gastric bypass - Primary | + + | Bariatric surgery status | + + | Ventral hernia without obstruction or gangrene | + + | Ventral hernia, unspecified, without mention of obstruction or gangrene | + + | Mixed hyperlipidemia | + + | Diabetes mellitus type 2 without retinopathy (HCC) | + + | Type II or unspecified type diabetes mellitus without mention of complication, not | | stated as uncontrolled | + + | Benign essential HTN | + + | Essential hypertension, benign | + + | AMARA treated with BiPAP | + + | History of pulmonary embolism | + + | Personal history of pulmonary embolism | + + | Personal history of DVT (deep vein thrombosis) | + + | Personal history of venous thrombosis and embolism | + + | Severe muscle deconditioning | + + | Other specific muscle disorders | + + | Chronic diastolic heart failure (HCC) | + + | Chronic diastolic heart failure | + + | Morbid obesity with BMI of 70 and over, adult (HCC) | + + | YO (dyspnea on exertion) | + + | Other dyspnea and respiratory abnormality | + + | PCOS (polycystic ovarian syndrome) | + + | Polycystic ovaries | + + | Decreased mobility | + + | Abnormality of gait | + + | Intertriginous candidiasis | + + | Candidiasis of skin and nails | + + | Impaired intestinal absorption | + + | Unspecified intestinal malabsorption | + +
--- OUTSIDE RECORDS SUMMARY | ~2018-04-27 | XMS | Encounter Summary ---
Demographics + + + | Address | [address] | | | [place] [address] | + + + | Home Phone [...] + | KENNY BERRY | ECON | [address] | | | | | [place], [place] | | | | | [address] | | + + + + + | MAXIMILIANO FARRELL | ECON | Unknown | | + + + + + Care Team Providers + +------+ + | Care Stationary Plant Operators Name | Role | Phone | + [...] Road | | | | | | [place], [place] | | | | | | [address] | | | +--------+ + + + [...] | 2018 | Visit | | RD [address] [facility] | | | | | | [address] | | | | | | [place], [place] | | | | | | [address] | | +--------+---------+ + + + | 05/27/ | Office | Surgery | Ronna Clarke, | | | 2017 | Visit | | ACNP [address] | | | | | | [place] | | | | | | [address] | | | | | | [phone] | | | | | | | | +--------+---------+ + + + | 05/27/ | Office | Pain Management | Demar Cueva, PhD | | | 2017 | Visit | | [address] | | | | | | [place] | | | | | | [address] | | | | | | [phone] | | | | | | | | +--------+---------+ + + + | 06/04/ | Office | Cardiology | Randell Franks, | | | 2017 | Visit | | MD [address] | | | | | | [place], [place] | | | | | | [address] | | | | | | [phone] | | | | | | | | +--------+---------+ + + + as of this encounter Visit Diagnoses Not on filein this encounter"
--- OUTSIDE RECORDS SUMMARY | ~2018-04-27 | XMS | Clinical Summary ---
Demographics + + + | Address | [address] | | | [place] [address] | + + + | Home Phone [...] + | KENNY BERRY | ECON | [address] | | | | | [place], [place] | | | | | [address] | | + + + + + | MAXIMILIANO FARRELL | ECON | Unknown | | + + + + + Care Team Providers + +------+ + | Care Network Mgr Name | Role | Phone | + +------+ + | Fadi Goodrich DO | PP | | + +------+ + Source Comments [facility] and [facility] Allergies + + + + [...] + + + Current Medications + + + +---------+------+------+-------+ | Prescription | Sig. | Disp. | Refills | Star | End | Statu | | | | | | t | Date | s | | | | | | Date | | | + + + +---------+------+------+-------+ | traZODone 150 mg | Take 150 mg by mouth | | | | | Activ | | Oral tablet | once daily at | | | | | e | | | bedtime. | | | | | | + + + +---------+------+------+-------+ | ascorbic acid | Take 500 mg by mouth | | | | | Activ | | (VITAMIN C) 500 mg | once daily. | | | | | e | | Oral tablet | | | | | | | + + + +---------+------+------+-------+ | ergocalciferol | Take 50,000 Units by [...] | + + + +---------+------+------+-------+ | ALPRAZolam 1 mg | Take 1 [...] | | | | Activ | | CRB&YNJ-Z7-UTQ50-GEN | mouth two times | | | | | e | | IS ORAL | daily. | | | | | | + + + +---------+------+------+-------+ | gabapentin 300 mg | Take 300 mg by mouth | | | | | Activ | | oral capsule | four times daily. | | | | | e | + + + +---------+------+------+-------+ | FLUoxetine 20 mg | Take 60 mg by mouth | | | | | Activ | | oral tablet | once daily at | | | | | e | | | bedtime. | | | | | | + + + +---------+------+------+-------+ | sodium fluoride | Place onto the [...] | | + + + +---------+------+------+-------+ | OLANZapine 15 mg | Take 30 mg by mouth | | | | | Activ | | oral tablet | once daily at | | | | | e | | | bedtime. | | | | | | + + + +---------+------+------+-------+ | topiramate 200 mg | Take 50 mg by mouth | | | | | Activ | | oral | two times daily. | | | | | e | | tabletIndications: | Indications: | | | | | | | Migraine Prevention | Migraine Prevention | | | | | | + + + +---------+------+------+-------+ | potassium chloride | Take 2 tablets by | 120 | 0 | 04/2 | | Activ | | SR 20 mEq oral | mouth two times | tablet | | 7/20 | | e | | tablet,ER | [...] | + + + +---------+------+------+-------+ | atenolol 25 mg | Take 25 mg by mouth | | | 11/1 | | Activ | | oral tablet | two times daily. | | | 7/20 | | e | | | | | | 17 | | | + + + +---------+------+------+-------+ | acetaminophen 325 | Take 2 tablets by | 100 | 0 | 06/1 | | Activ | | mg oral | mouth every six | tablet | | 8/20 | | e | | tabletIndications: | hours as needed for | | | 18 | | | | Morbid obesity (HCC) | pain. Cut tablet | | | | | | | | into small pieces. | | | | | | | | Do not crush. | | | | | | + + + +---------+------+------+-------+ | ondansetron ODT 4 | Dissolve 1 tablet on | 30 | 1 | 06/1 | | Activ | | mg oral | tongue and swallow | tablet | | 8/20 | | e | | tablet,disintegratin | every six hours as | | | 18 | | | | gIndications: Morbid | needed for | | | | | | | obesity (HCC) | nausea/vomiting. | | | | | | + + + +---------+------+------+-------+ | polyethylene | Dissolve 17g (1 | 255 g | 0 | 06/1 | | Activ | | glycol 17 gram/dose | capful) into 4 | | | 8/20 | | e | | oral | ounces of liquid and | | | 18 | | | | powderIndications: | drink once daily as | | | | | | | Morbid obesity ([facility]) | needed for | | | | | | | | constipation. | | | | | | + + + +---------+------+------+-------+ | glycerin (ADULT) | Unwrap and insert 1 | 25 | 2 | 06/1 | | Activ | | rectal | suppository rectally | supposito | | 8/20 | | e | | suppositoryIndicatio | once daily as | ry | | 18 | | | | ns: Morbid obesity | needed for | | | | | | | ([facility]) | constipation. | | | | | | + + + +---------+------+------+-------+ | simethicone chew | Chew and swallow 1 | 30 | 0 | 06/1 | | Activ | | 80 mg oral | tablet four times | tablet | | 8 | | e | | tablet,chewableIndic | daily as needed for | | | 18 | | | | ations: Morbid | gas/bloating. | | | | | | | obesity (HCC) | | | | | | | + + + +---------+------+------+-------+ | ursodiol 300 mg | Take 1 capsule by | 60 | 5 | 12/25 | 06/26 | Activ | | oral | mouth two times | capsule | | 03/15 | 12/13 | e | | capsuleIndications: | daily. Start taking | | | 18 | 18 | | | Morbid obesity (HCC) | two weeks after your | | | | | | | | surgery. | | | | | | + + + +---------+------+------+-------+ | torsemide 100 mg | Take 0.5 tablets by | | | 08/0 | | Activ | | oral tablet | mouth two times | | | 02/12 | | e | | | daily. Resume half | | | 18 | | | | | dose for first week | | | | | | | | post opertative | | | | | | + + + +---------+------+------+-------+ | TRESIBA FLEXTOUCH | Inject 28 Units | | | 08/0 | | Activ | | U-100 100 unit/mL (3 | under the skin | | | 8/20 | | e | | mL) subcutaneous | (SUBC) once daily | | | 18 | | | | insulin pen | with dinner. | | | | | | + + + +---------+------+------+-------+ | metFORMIN 1,000 mg | See directions below | | | 08/0 | | Activ | | oral tablet | | | | 8/20 | | e | | | | | | 18 | | | + + + +---------+------+------+-------+ | oxyCODONE | Take 1 tablet by | 60 | 0 | 08/1 | | Activ | | (immediate release) | mouth every six | tablet | | 5/20 | | e | | 5 mg oral tablet | hours as needed for | | | 18 | | | | | severe pain. | | | | | | + + + +---------+------+------+-------+ | buprenorphine HCl | Place under tongue | | | | | Activ | | 2 mg sublingual | once daily. | | | | | e | | tablet, sublingual | | | | | | | + + + +---------+------+------+-------+ | omeprazole 20 mg | Take 1 capsule by | 90 | 0 | 12/25 | 03/27 | Expir | | oral capsule,delayed | mouth once daily in | capsule | | 03/15 | 01/13 | ed | | | the morning. Open | | | 18 | 18 | | | release(DR/EC)Indica | the capsule and mix | | | | | | | tions: Morbid | into sugar-free | | | | | | | obesity (HCC) | liquid or yogurt. | | | | | | + + + +---------+------+------+-------+ Active Problems + + + | Problem | Noted Date | + + + | History of Nish-en-Y gastric bypass | 03/10/2018 | + + + | Impaired intestinal absorption | 03/10/2018 | + + + | Morbid obesity with BMI of 70 and over, adult ([facility]) | 02/02/2017 | + + + | Chronic diastolic heart failure ([facility]) | 02/02/2017 | + + + | [...] + + + | Right heart failure (HCC) | 11/07/2015 | + + + + [...] of 70 and over, adult ([facility]) | 06/16/20 | | | | 13 | 4 | + + + + | Diabetes mellitus ([facility]) | 06/16/20 | | | | 13 [...] + + | 04/12/ | Telephone | | Ion Pandey, | Update from Patient; | | 2017 | | | MD | Postoperative | | | | | | infection | +--------+ + + + + | 04/01/ | Office | | Dannie Ion Vinicius, | Aftercare following | | 2017 | Visit | | MD | surgery (Primary | | | | | | Dx); History of | | | | | | Nish-en-Y gastric | | | | | | bypass | +--------+ + + + + | 04/01/ | Office | | Dione Andre, | History of Nish-en-Y | | 2017 | Visit | | RD | gastric bypass | | | | | | (Primary Dx); | | | | | | 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| | with insulin therapy | | | | | | (HCC) | +--------+ + + + + | 03/16/ | Telephone | | Ronna Clarke, | | | 2017 | | | ACNP | | +--------+ + + + + | 03/11/ | Telephone | | Ronna Clarke, | Update On Condition | 2017 | | | ACNP | | +--------+ + + + + | 03/10/ | Office | | Ronna Clarke, | History of Nish-en-Y | | 2018 | Visit | | ACNP | gastric bypass | | | | | | (Primary Dx); | | | | | | Ventral hernia | | | | | | without obstruction | | | | | | or gangrene; Mixed | | [...] | | | | adult (HCC) | +--------+ + + + + | 03/10/ | Office | | Dione Andre, | Severe Morbid | | 2018 | Visit | | RD | obesity (HCC), BMI | | | | | | 88 (Primary Dx); | | | | | | Type 2 diabetes | | | | | | mellitus without | | | | | | complication, with | | | | | | long-term current | | | | | | use of insulin | | | | | | (HCC); S/P gastric | | | | | | bypass | +--------+ + + + + | 03/10/ | Pharmacy | | | | | 2017 | Visit | | | | +--------+ + + + + | 03/04/ | Telephone | | Ion Pandey, | | | 2017 | | | MD | | +--------+ + + + + | 03/03/ | Pharmacy | | | | | 2017 | Visit | | | | +--------+ + + + + | 03/02/ | Pharmacy | | | | | 2017 | Visit | | | | +--------+ + + + + | 03/01/ | Hospital | | Ion Pandey, | | | 2018 - | Encounter | | MD | | | | | | | | | 03/03/ | | | | | | 2018 | | | | | +--------+ + + + + +---+ + | | Discharge | | | Summaries | | | - Petcu, | | | Aura, ACNP | | | - | | | 03/03/2018 | | | 9:49 AM | | | PDT | | | Formatting | | | of this | | | note may be | | | different | | | from the | | | original.[facility] | | | [employer] | | | & [facility] | | | [facility] | | | ED SURGERY | | | INPATIENT | | | DISCHARGE | | | SUMMARYAuth | | | or: Aura | | | Petcu, | | | ACNPAttendi | | | ng | | | Physician: | | | Ion Colvin | | | Dannie, | | | MDPCP: Fadi | | | DO Kp | | | Admission | | | Date: | | | 03/01/2018Dis | | | charge | | | Date: 08 | | | Feb | | | 2018Diagnos | | | es Patients | | | Hospital | | | Problem | | | List: | | | Active | | | Hospital | | | Problems1) | | | *Morbid | | | obesity | | | with BMI of | | | 70 and | | | over, adult | | | (HCC)2) | | | Decreased | | | mobility3) | | | Diabetes | | | mellitus | | | with | | | insulin | | | therapy | | | (HCC)4) | | | Personal | | | history of | | | DVT (deep | | | vein | | | thrombosis) | | | 5) Benign | | | essential | | | HTN6) | | | Acute | | | post-operat | | | scarlett | | | painProcedu | | | re | | | Laparoscopi | | | c nish en Y | | | gastric | | | bypass | | | Brief | | | Hospital | | | Course | | | Dylan Shereen | | | [place] is a | | | 43 y.o. | | | woman with | | | a history | | | of morbid | | | obesity. | | | She was | | | admitted on | | | 03/01/2018 | | | for the | | | listed | | | procedure. | | | She | | | tolerated | | | the | | | procedure | | | well with | | | no | | | operative | | | complicatio | | | ns. She | | | recovered | | | briefly in | | | the PACU | | | before | | | being | | | transferred | | | to the | | | gallo for | | | observation | | | . | | | Postoperati | | | vely, she | | | was placed | | | on a | | | bariatric | | | clear | | | liquid | | | diet. | | | Overnight | | | she was | | | able to | | | tolerate | | | bariatric | | | clear | | | liquids | | | well. On | | | postoperati | | | ve day 1, | | | she was | | | tolerating | | | bariatric | | | clear | | | liquids | | | well, thus | | | she was | | | advanced to | | | a | | | bariatric | | | full liquid | | | diets. Our | | | bariatric | | | dietitian | | | was | | | consulted | | | and they | | | discussed | | | her | | | postoperati | | | ve diet | | | instruction | | | s. On day | | | of | | | discharge, | | | her vital | | | signs were | | | stable, | | | tolerating | | | bariatric | | | full liquid | | | diet, pain | | | was well | | | controlled | | | with oral | | | pain | | | medications | | | and was | | | ambulating | | | and voiding | | | without | | | difficulty. | | | Thus, she | | | was deemed | | | stable for | | | discharge. | | | Discharge | | | instruction | | | s have been | | | reviewed | | | with the | | | patient and | | | all | | | questions | | | have been | | | answered. | | | We will | | | have her | | | follow up | | | with our | | | Bariatric | | | Nurse | | | Practitione | | | r in 1 week | | | and her | | | surgeon, | | | Dr. Lemon A | | | MD Dannie | | | in | | | approximate | | | ly 4 weeks. | | | Secondary | | | to the | | | risk for | | | dehydration | | | in the | | | immediate | | | post | | | operative | | | period | | | following | | | bariatric | | | surgery, | | | the | | | patient's | | | diuretic | | | medication | | | was halved | | | for the | | | first week | | | post op. | | | The patient | | | may resume | | | this at | | | the | | | discretion | | | of the | | | primary | | | care | | | provider. | | | Our | | | recommendat | | | ion is to | | | restart | | | when able | | | to | | | consisently | | | take in | | | 64fl oz of | | | liquids per | | | day and/or | | | if there | | | is severe | | | swelling | | | noted. | | | Also, due | | | for VTE | | | prevention | | | due to high | | | BMI and | | | previous hx | | | of VTE, pt | | | will | | | discharge | | | with 1 week | | | | | | prophylacti | | | c | | | enoxaparin. | | | Endocrinolo | | | gy | | | recommendat | | | ions as | | | follows:1. | | | Degludec | | | (Tresiba) | | | 28 units | | | with dinner | | | night. You | | | likely may | | | need to | | | titrate | | | this dose | | | up (or | | | possibly | | | down) a few | | | times once | | | home. 2. | | | Follow the | | | Degludec | | | (Tresiba) | | | Protocol | | | (see below) | | | for dose | | | adjustments | | | .3. | | | Discontinue | | | NPH4. CBGs | | | every | | | morning | | | (fasting) | | | and at | | | lunchtime | | | and at | | | bedtime at | | | minimum.5. | | | Follow with | | | PCP for | | | Endocrinolo | | | gist within | | | 1 - 2 | | | weeks of | | | discharge | | | for | | | evaluation | | | of A1c and | | | glycemic | | | management. | | | Take CBG | | | readings to | | | | | | appointment | | | .6. If CBGs | | | continue | | | greater | | | than 180 or | | | less than | | | 80, call | | | PCP BRIAN | | | (before | | | appointment | | | ). Deglude | | | c (Tresiba) | | | | | | PROTOCOLYou | | | r long | | | acting | | | insulin | | | helps | | | control | | | your sugar | | | levels | | | while you | | | sleep. | | | Your | | | morning | | | sugar (CBG) | | | | | | measurement | | | tells you | | | how well | | | your long | | | acting | | | insulin | | | dose is | | | working.You | | | r target | | | morning | | | blood sugar | | | is | | | 80-130.To | | | reach this | | | target you | | | should | | | change your | | | insulin | | | dose every | | | three | | | days.If you | | | morning is | | | higher | | | than this | | | you should | | | increase | | | your | | | insulin | | | dose. If | | | your | | | morning | | | blood sugar | | | levels is | | | lower than | | | this you | | | should | | | decrease | | | your dose. | | | Use the | | | following | | | chart to | | | help adjust | | | your long | | | acting | | | insulin | | | dose:Averag | | | e Morning | | | blood sugar | | | for | | | last 3 | | | days | | | | | | Change in | | | long acting | | | insulin | | | doseOver | | | 180 | | | | | | | | | | | | | | | | | | | | | | | | | | | Increase | | | by 5 units | | | 151-180 | | | | | | | | | | | | | | | | | | | | | | | | | | | | | | Increase | | | by 3 | | | -93 | | | 0 | | | | | | | | | | | | | | | | | | | | | | | | | | | Increase | | | by 1 | | | [id number] | | | | | | | | | | | | | | | | | | | | | | | | | | | | | | No | | | change in | | | insulin | | | [id number] | | | | | | | | | | | | | | | | | | | | | | | | | | | | | | | | | Decrease | | | insulin by | | | 2 unitsLess | | | 60 | | | | | | | | | | | | | | | | | | | | | | | | | | | Decrease | | | insulin by | | | 5 | | | units 7. | | | Continue | | | Metformin | | | at 500 mg | | | daily with | | | food | | | (breakfast) | | | . If | | | tolerating | | | well after | | | three days, | | | start 500 | | | mg twice | | | daily with | | | food | | | (breakfast | | | and | | | dinner). | | | Then, if | | | tolerating | | | well after | | | another | | | three days, | | | start 1000 | | | mg daily | | | with | | | breakfast | | | and stay at | | | 500 mg | | | daily with | | | dinner. | | | Finally, if | | | tolerating | | | well after | | | another | | | three days, | | | stay at | | | 1000 mg | | | daily with | | | breakfast | | | and start | | | 1000 mg | | | daily with | | | dinner for | | | a goal of | | | 2000 | | | mg.Medicati | | | ons: | | | Medication | | | List | | | CHANGE how | | | you take | | | these | | | medications | | | oxyCODONE | | | (immediate | | | release) 5 | | | mg | | | TabCommonly | | | known as: | | | | | | ROXICODONET | | | americo 1 to 3 | | | tablets by | | | mouth every | | | four hours | | | as needed | | | for | | | moderate | | | pain or | | | severe | | | pain.What | | | changed: | | | how much to | | | take | | | when to | | | take this | | | reasons to | | | take this | | | torsemide | | | 100 mg | | | TabCommonly | | | known as: | | | | | | DEMADEXTake | | | 0.5 | | | tablets by | | | mouth two | | | times | | | daily. | | | Resume half | | | dose for | | | first week | | | post | | | opertativeW | | | hat | | | changed: | | | how much to | | | take | | | additional | | | instruction | | | s TRESIBA | | | FLEXTOUCH | | | U-100 100 | | | unit/mL (3 | | | mL) | | | InpnGeneric | | | drug: | | | insulin | | | degludecInj | | | ect 28 | | | Units under | | | the skin | | | (SUBC) once | | | daily with | | | | | | dinner.What | | | changed: | | | how much | | | to take | | | when to | | | take this | | | CONTINUE | | | taking | | | these | | | medications | | | | | | acetaminoph | | | en 325 mg | | | TabCommonly | | | known as: | | | | | | TYLENOLTake | | | 2 tablets | | | by mouth | | | every six | | | hours as | | | needed for | | | pain. Cut | | | tablet into | | | small | | | pieces. Do | | | not crush. | | | ALPRAZolam | | | 1 mg | | | TabCommonly | | | known as: | | | XANAXTake | | | 1 mg by | | | mouth three | | | times | | | daily as | | | needed for | | | anxiety. | | | ARMOUR | | | THYROID 30 | | | mg Tab | | | tabGeneric | | | drug: | | | thyroidTake | | | 30 mg by | | | mouth once | | | daily. | | | aspirin EC | | | 81 mg | | | TbecTake 81 | | | mg by | | | mouth once | | | daily. | | | atenolol 25 | | | mg | | | TabCommonly | | | known as: | | | | | | TENORMINTak | | | e 25 mg by | | | mouth two | | | times | | | daily. | | | CALCIUM | | | CRB&CIT-D3- | | | [id number] | | | ORALTake 2 | | | tablets by | | | mouth two | | | times | | | daily. | | | enoxaparin | | | 40 mg/0.4 | | | mL | | | SyrgCommonl | | | y known as: | | | | | | LOVENOXInje | | | ct 0.4 mL | | | under the | | | skin two | | | times daily | | | for 14 | | | days. | | | fluoride | | | (sodium) | | | 1.1 % | | | CreaCommonl | | | y known as: | | | PREVIDENT | | | PLUSPlace | | | onto the | | | teeth. Use | | | to brush | | | teeth 2 to | | | 3 times | | | daily as | | | directed. | | | Do not eat | | | drink or | | | rinse mouth | | | | | | immediately | | | following | | | use. Do not | | | swallow | | | FLUoxetine | | | 20 mg | | | TabCommonly | | | known as: | | | | | | SARAFEMTake | | | 60 mg by | | | mouth once | | | daily at | | | bedtime. | | | gabapentin | | | 300 mg | | | CapCommonly | | | known as: | | | | | | NEURONTINTa | | | ke 300 mg | | | by mouth | | | four times | | | daily. | | | glycerin | | | (ADULT) | | | SuppUnwrap | | | and insert | | | 1 | | | suppository | | | rectally | | | once daily | | | as needed | | | for | | | constipatio | | | n. | | | magnesium | | | oxide 400 | | | mg | | | TabCommonly | | | known as: | | | MAG-OXTake | | | 400 mg by | | | mouth once | | | daily. | | | metFORMIN | | | 1,000 mg | | | TabCommonly | | | known as: | | | | | | GLUCOPHAGET | | | americo 1,000 | | | mg by mouth | | | two times | | | daily. | | | OLANZapine | | | 15 mg | | | TabCommonly | | | known as: | | | | | | ZYPREXATake | | | 30 mg by | | | mouth once | | | daily at | | | bedtime. | | | omeprazole | | | 20 mg | | | CpdrCommonl | | | y known as: | | | | | | PRILOSECTak | | | e 1 capsule | | | by mouth | | | once daily | | | in the | | | morning. | | | Open the | | | capsule and | | | mix into | | | sugar-free | | | liquid or | | | yogurt. | | | ondansetron | | | ODT 4 mg | | | TbdiCommonl | | | y known as: | | | ZOFRAN | | | ODTDissolve | | | 1 tablet | | | on tongue | | | and swallow | | | every six | | | hours as | | | needed for | | | nausea/vomi | | | ting. | | | polyethylen | | | e glycol 17 | | | gram/dose | | | PowdCommonl | | | y known as: | | | | | | MIRALAXDiss | | | olve 17g (1 | | | capful) | | | into 4 | | | ounces of | | | liquid and | | | drink once | | | daily as | | | needed for | | | constipatio | | | n. | | | potassium | | | chloride SR | | | 20 mEq | | | TbtqCommonl | | | y known as: | | | K-DURTake | | | 2 tablets | | | by mouth | | | two times | | | daily. | | | simethicone | | | chew 80 mg | | | | | | ChewCommonl | | | y known as: | | | | | | MYLICONChew | | | and | | | swallow 1 | | | tablet four | | | times | | | daily as | | | needed for | | | gas/bloatin | | | g. | | | topiramate | | | 200 mg | | | TabCommonly | | | known as: | | | | | | TOPAMAXTake | | | 50 mg by | | | mouth two | | | times | | | daily. | | | Indications | | | : Migraine | | | Prevention | | | traZODone | | | 150 mg | | | TabCommonly | | | known as: | | | | | | DESYRELTake | | | 150 mg by | | | mouth once | | | daily at | | | bedtime. | | | ursodiol | | | 300 mg | | | CapCommonly | | | known as: | | | | | | ACTIGALLTak | | | e 1 capsule | | | by mouth | | | two times | | | daily. | | | Start | | | taking two | | | weeks after | | | your | | | surgery. | | | VITAMIN C | | | 500 mg | | | TabGeneric | | | drug: | | | ascorbic | | | acid | | | (vitamin | | | C)Take 500 | | | mg by mouth | | | once | | | daily. | | | VITAMIN D2 | | | 50,000 unit | | | CapGeneric | | | drug: | | | ergocalcife | | | rolTake | | | 50,000 | | | Units by | | | mouth twice | | | weekly (on | | | Thursday | | | and | | | ). | | | STOP | | | taking | | | these | | | medications | | | NovoLIN N | | | NPH U-100 | | | Insulin 100 | | | unit/mL | | | SuspGeneric | | | drug: | | | insulin NPH | | | | | | phentermine | | | 37.5 mg | | | Tab | | | Bariatric | | | Diet a. | | | You will be | | | on FULL | | | liquid | | | diet. Try | | | to take | | | 48-64 | | | ounces | | | daily. | | | Liquids | | | should be | | | of a thin | | | consistency | | | and | | | liquids | | | should be | | | able to be | | | poured from | | | cup to | | | cup. b. | | | Aim for | | | 60-80 grams | | | of protein | | | per day | | | from list | | | of foods | | | listed in | | | your | | | bariatric | | | book or in | | | the handout | | | provided | | | by your | | | dietitian | | | prior to | | | discharge. | | | You will | | | remain on | | | this diet | | | for 2-3 | | | weeks. Do | | | not advance | | | your diet | | | until you | | | are seen in | | | clinic.c. | | | Patient | | | may take | | | medication | | | tablets < | | | or = to | | | 1.30 cm | | | (0.5 inch, | | | approximate | | | ly the size | | | of a | | | regular | | | M&M). | | | Otherwise, | | | break the | | | pill into | | | that size. | | | If | | | medication | | | is a | | | capsule, | | | open | | | capsule.Ful | | | l Liquid | | | Diet | | | Continue | | | your Full | | | Liquid Diet | | | at home. | | | This | | | includes | | | protein | | | drinks, | | | cream of | | | wheat, | | | yogurt | | | without | | | fruit and | | | clear | | | liquids. | | | Activity a. | | | Do not do | | | any | | | strenuous | | | exercise | | | until your | | | provider | | | has given | | | you | | | permission | | | to do so. | | | b. | | | Walking | | | will be | | | your main | | | form of | | | physical | | | activity. | | | It is | | | important | | | to move | | | frequently | | | throughout | | | the day, | | | increasing | | | your | | | activity | | | level and | | | walking | | | often. It | | | is | | | important | | | to start | | | slow, but | | | increase | | | your | | | activity | | | each day.c. | | | Do not | | | drive while | | | on | | | narcotic | | | medications | | | . d. | | | Follow | | | abdominal | | | precautions | | | .Wound Care | | | Keep | | | incision | | | clean and | | | dry. No | | | dressings | | | are needed. | | | You may | | | shower. | | | Please pat | | | incisional | | | area dry. | | | Do not rub | | | the | | | incisions; | | | allow for | | | crust to | | | fall off on | | | its own. | | | No baths, | | | hot tubs or | | | swimming | | | for 2 weeks | | | if | | | laparoscopi | | | c and 4 | | | weeks if | | | open | | | surgery. | | | Probiotics | | | Consume 1 | | | tablespoon | | | twice per | | | day of | | | foods | | | containing | | | live active | | | cultures | | | (probiotics | | | ) such as | | | low fat | | | yogurt or | | | kefir. | | | Zaria's | | | Yogurt or | | | Kefir, | | | [place] | | | Yogurt, | | | and | | | Chiobani | | | Swedish | | | Yogurt are | | | common | | | brands with | | | beneficial | | | | | | probiotics. | | | | | | Dehydration | | | | | | Dehydration | | | : It is | | | extremely | | | important | | | for you to | | | stay | | | hydrated. | | | You should | | | be taking | | | in 64 | | | ounces of | | | fluid | | | daily. You | | | should also | | | be | | | urinating | | | at least | | | four times | | | a day. | | | Please | | | monitor and | | | record | | | your daily | | | fluid | | | intake, and | | | report to | | | us | | | immediately | | | if you are | | | not | | | urinating | | | at least | | | four times | | | a day or | | | are | | | experiencin | | | g pain with | | | urination. | | | Medication | | | | | | Instruction | | | s | | | Medication | | | Instruction | | | s: Please | | | cut pills | | | with pill | | | cutter into | | | particles | | | the size of | | | a M&M. | | | Take | | | particles | | | with small | | | amount of | | | sugar-free | | | liquid, | | | pudding or | | | yogurt. If | | | unable to | | | cut, please | | | crush | | | pills. If | | | any of your | | | | | | medications | | | come in | | | capsule | | | form, | | | please open | | | capsule | | | and empty | | | contents | | | into small | | | amount of | | | sugar-free | | | liquid or | | | yogurt. | | | Take entire | | | contents | | | via | | | mouth.Vitam | | | ins | | | Vitamins: | | | You will | | | begin | | | taking your | | | vitamins | | | after your | | | first 1 | | | week post | | | operative | | | visit with | | | the Nurse | | | Practitione | | | r. If your | | | insurance | | | does not | | | cover | | | vitamins, | | | they are | | | available | | | over the | | | counter at | | | most health | | | | | | stores.Naus | | | ea/Vomiting | | | /Difficulty | | | Swallowing | | | | | | Nausea/Vomi | | | ting/Diffic | | | ulty | | | swallowing: | | | Could be | | | from not | | | ingesting | | | appropriate | | | | | | food/drink, | | | eating too | | | much or | | | too fast. | | | Do not | | | drink with | | | meals, | | | leave at | | | least 30 | | | minutes | | | between | | | eating and | | | drinking to | | | decrease | | | overfilling | | | of the | | | stomach. | | | Take nausea | | | medication | | | provided | | | to you if | | | you feel | | | nauseated. | | | It is | | | important | | | that you | | | meet your | | | goal of | | | fluid | | | intake (64 | | | ounces/day) | | | Malaise | | | (Feeling | | | tired) | | | Malaise | | | (Feeling | | | tired): It | | | is very | | | normal to | | | feel tired | | | after | | | surgery for | | | the first | | | two weeks. | | | It is | | | important | | | to be | | | active, and | | | you should | | | feel a | | | little bit | | | better each | | | day. | | | Primary | | | Care | | | Provider | | | Follow Up | | | Primary | | | Care | | | Provider | | | Follow Up: | | | a) Primary | | | care | | | follow up | | | is | | | extremely | | | important. | | | You need to | | | make a | | | follow up | | | appointment | | | with your | | | Primary | | | Care | | | Provider in | | | 2 weeks. | | | It is | | | especially | | | important | | | to do so if | | | you are on | | | | | | medications | | | for your | | | blood | | | pressure or | | | for | | | diabetes. | | | At this | | | appointment | | | your | | | provider | | | will review | | | your | | | medications | | | and make | | | the | | | necessary | | | changes--if | | | needed. b) | | | Before | | | your | | | primary | | | care visit, | | | please | | | check your | | | blood sugar | | | and blood | | | pressure | | | regularly | | | and keep a | | | record of | | | them to | | | show your | | | primary | | | care | | | provider. | | | At your | | | primary | | | care | | | provider | | | follow up | | | visit, they | | | will use | | | your blood | | | pressure | | | and blood | | | sugar | | | numbers to | | | adjust your | | | | | | medications | | | as needed. | | | c) | | | Diabetes | | | -- | | | Monitoring | | | your blood | | | sugar | | | during your | | | immediate | | | post | | | operative | | | period is | | | important. | | | You are at | | | risk for | | | hypoglycemi | | | a (low | | | blood | | | sugar), | | | therefore | | | it is | | | important | | | to monitor | | | your blood | | | sugar | | | levels in | | | the | | | immediate | | | postoperati | | | ve period | | | and | | | especially | | | when taking | | | | | | medications | | | for your | | | diabetes. | | | Early | | | symptoms of | | | | | | hypoglycemi | | | a include: | | | -Confusion. | | | | | | -Dizziness. | | | -Feeling | | | shaky. | | | -Hunger. | | | -Headaches. | | | | | | -Irritabili | | | ty. | | | -Pounding | | | heart; | | | racing | | | pulse. | | | -Pale skin. | | | If you | | | experience | | | any of | | | these | | | symptoms, | | | please | | | check your | | | blood sugar | | | level. If | | | it is lower | | | than 75, | | | please eat | | | something | | | to increase | | | your blood | | | glucose | | | and call | | | your | | | primary | | | care | | | provider | | | immediately | | | for | | | further | | | instruction | | | s.d) | | | Hypertensio | | | n --It | | | is | | | important | | | to check | | | your blood | | | pressure | | | before any | | | blood | | | pressure | | | medications | | | are taken | | | due to your | | | risk for | | | hypotension | | | (low blood | | | pressure). | | | Please | | | check your | | | blood | | | pressures | | | if you are | | | feeling | | | dizzy or | | | lightheaded | | | , and | | | especially | | | if you | | | notice | | | these | | | symptoms | | | while | | | changing | | | from a | | | lying to | | | sitting to | | | standing | | | position. | | | | | | --Symptoms | | | of Low | | | Blood | | | Pressure | | | (hypotensio | | | n) include: | | | | | | -Dizziness | | | or | | | lightheaden | | | ess | | | | | | -Fainting | | | (syncope) | | | | | | -Lack of | | | concentrati | | | on | | | -Blurred | | | vision | | | | | | -Nausea | | | | | | -Cold, | | | clammy, | | | pale skin | | | | | | -Fatigue | | | | | | -ThirstCons | | | tipation | | | Prevention | | | It is very | | | important | | | to avoid | | | constipatio | | | n and | | | straining | | | while | | | trying to | | | have a | | | bowel | | | movement. | | | It is | | | common to | | | experience | | | constipatio | | | n after | | | your | | | operation | | | and when | | | taking | | | narcotics. | | | Please use | | | laxative | | | medications | | | such | | | Polyethylen | | | e glycol | | | (Miralax) | | | or glycerin | | | | | | suppositori | | | es to | | | assist you | | | with having | | | regular | | | bowel | | | movements. | | | Please | | | work | | | towards | | | having a | | | bowel | | | movement | | | every 1-2 | | | days. A hot | | | drink each | | | morning | | | will also | | | help the | | | sphincter | | | to work in | | | pushing the | | | stool | | | forward. It | | | is | | | important | | | to stay | | | hydrated, | | | about 45-60 | | | fluid | | | ounces | | | daily, and | | | this will | | | help your | | | bowel | | | function. | | | Pain | | | Instruction | | | s It is | | | expected | | | that you | | | will | | | experience | | | pain after | | | your | | | operation, | | | and it is | | | important | | | to have you | | | manage | | | your pain | | | to increase | | | your | | | activity, | | | sleep and | | | overall | | | healing. | | | You will | | | have a | | | prescriptio | | | n for pain | | | relief. | | | This should | | | be taken | | | every 3-6 | | | hours per | | | your | | | instruction | | | s. Some | | | medications | | | , like | | | [place], have | | | Tylenol in | | | it. Make | | | sure you do | | | not take | | | more than | | | 4,000 mg of | | | Tylenol or | | | | | | acetaminoph | | | en in 24 | | | hours. Pain | | | Tapering | | | Instruction | | | s Your pain | | | should | | | slowly and | | | steadily | | | diminish as | | | you heal. | | | If your | | | pain level | | | at the | | | surgery | | | site | | | increases, | | | you should | | | call us. It | | | is normal | | | for | | | increased | | | pain if you | | | are overly | | | active or | | | you | | | decrease | | | your pain | | | medication, | | | but a | | | significant | | | and | | | unexplained | | | increase | | | in pain | | | should be | | | discussed | | | with your | | | surgeon. | | | Pain | | | medication | | | is usually | | | necessary | | | for only | | | 4-5 days | | | postoperati | | | vely. It | | | is | | | important | | | to have a | | | plan for | | | tapering | | | off of pain | | | | | | medication. | | | Consult | | | your | | | pharmacist | | | to | | | construct a | | | proper | | | tapering | | | schedule. | | | Clinic | | | staff is | | | able to | | | help you | | | develop a | | | tapering | | | schedule as | | | well. | | | Please be | | | aware that | | | if you have | | | chronic | | | pain | | | issues, or | | | you require | | | pain | | | medication | | | for an | | | extended | | | period of | | | time, you | | | will likely | | | be given | | | instruction | | | s to follow | | | up with | | | your PCP or | | | a pain | | | management | | | provider. | | | Refill | | | Instruction | | | s:Your pain | | | | | | medications | | | should be | | | taken as | | | needed, as | | | prescribed | | | by your | | | healthcare | | | provider. | | | You should | | | plan to | | | taper down | | | your dosing | | | within the | | | first 2-3 | | | days | | | postop. | | | Refills are | | | not | | | available | | | outside of | | | clinic | | | hours or on | | | weekends | | | or | | | holidays. | | | Narcotic | | | pain | | | medications | | | require a | | | written | | | prescriptio | | | n and must | | | be signed | | | by a | | | provider | | | and mailed | | | to you or | | | picked up. | | | If you | | | need | | | ongoing | | | pain | | | medication | | | beyond the | | | usual | | | recovery | | | period, you | | | will be | | | directed to | | | follow up | | | with your | | | primary | | | care | | | provider | | | (PCP) as | | | this clinic | | | does not | | | provide | | | ongoing | | | chronic | | | pain | | | management | | | services.Wh | | | en to Call | | | the Doctor | | | When to | | | Call the | | | Doctor - If | | | your | | | incision | | | becomes | | | red, | | | swollen, or | | | has any | | | bloody or | | | pus-like | | | drainage. - | | | If you | | | have a | | | fever of | | | 101.5 F or | | | greater or | | | if you have | | | chills.- | | | If you have | | | increased | | | pain, | | | unrelieved | | | by your | | | pain | | | medications | | | .- If you | | | have | | | persistent | | | nausea, | | | vomiting, | | | diarrhea, | | | or no bowel | | | movement | | | for more | | | than 2 days | | | after | | | discharge | | | from the | | | hospital.- | | | If you | | | develop any | | | unusual | | | signs or | | | symptoms, | | | including | | | chest pain, | | | shortness | | | of breath, | | | pulmonary | | | embolism, | | | leg | | | swelling, | | | pain or | | | redness | | | that is | | | abnormal | | | for you, | | | and other | | | symptoms of | | | concern.- | | | If you have | | | any | | | questions | | | or | | | concerns.Ho | | | w to Call | | | the Doctor- | | | You may | | | contact | | | your doctor | | | Thursday | | | through | | | Thursday | | | during the | | | daytime | | | hours by | | | calling the | | | surgery | | | office at | | | [phone] | | | 3. - After | | | hours, | | | weekends | | | and | | | holidays, | | | you may | | | call the | | | hospital | | | steam hoist operator at | | | | | | [phone] | | | 1 and have | | | the city [facility] | | | [facility] | | | Surgery | | | Team | | | paged.OTHER | | | DISCHARGE | | | ORDERS & | | | INSTRUCTION | | | S DISCHARGE | | | | | | RECOMMENDAT | | | IONS as of | | | 03/03/18 | | | Please copy | | | to AVS.1. | | | Degludec | | | (Tresiba) | | | 28 units | | | with dinner | | | night. You | | | likely may | | | need to | | | titrate | | | this dose | | | up (or | | | possibly | | | down) a few | | | times once | | | home. 2. | | | Follow the | | | Degludec | | | (Tresiba) | | | Protocol | | | (see below) | | | for dose | | | adjustments | | | .3. | | | Discontinue | | | NPH4. CBGs | | | every | | | morning | | | (fasting) | | | and at | | | lunchtime | | | and at | | | bedtime at | | | minimum.5. | | | Follow with | | | PCP for | | | Endocrinolo | | | gist within | | | 1 - 2 | | | weeks of | | | discharge | | | for | | | evaluation | | | of A1c and | | | glycemic | | | management. | | | Take CBG | | | readings to | | | | | | appointment | | | .6. If CBGs | | | continue | | | greater | | | than 180 or | | | less than | | | 80, call | | | PCP BRIAN | | | (before | | | appointment | | | ). Deglude | | | c (Tresiba) | | | | | | PROTOCOLYou | | | r long | | | acting | | | insulin | | | helps | | | control | | | your sugar | | | levels | | | while you | | | sleep. | | | Your | | | morning | | | sugar (CBG) | | | | | | measurement | | | tells you | | | how well | | | your long | | | acting | | | insulin | | | dose is | | | working.You | | | r target | | | morning | | | blood sugar | | | is | | | 80-130.To | | | reach this | | | target you | | | should | | | change your | | | insulin | | | dose every | | | three | | | days.If you | | | morning is | | | higher | | | than this | | | you should | | | increase | | | your | | | insulin | | | dose. If | | | your | | | morning | | | blood sugar | | | levels is | | | lower than | | | this you | | | should | | | decrease | | | your dose. | | | Use the | | | following | | | chart to | | | help adjust | | | your long | | | acting | | | insulin | | | dose:Averag | | | e Morning | | | blood sugar | | | for | | | last 3 | | | days | | | | | | Change in | | | long acting | | | insulin | | | doseOver | | | 180 | | | | | | | | | | | | | | | | | | | | | | | | | | | Increase | | | by 5 units | | | 151-180 | | | | | | | | | | | | | | | | | | | | | | | | | | | | | | Increase | | | by 3 | | | [id number] | | | 0 | | | | | | | | | | | | | | | | | | | | | | | | | | | Increase | | | by 1 | | | [id number] | | | | | | | | | | | | | | | | | | | | | | | | | | | | | | No | | | change in | | | insulin | | | [id number] | | | | | | | | | | | | | | | | | | | | | | | | | | | | | | | | | Decrease | | | insulin by | | | 2 unitsLess | | | 60 | | | | | | | | | | | | | | | | | | | | | | | | | | | Decrease | | | insulin by | | | 5 | | | units 7. | | | Continue | | | Metformin | | | at 500 mg | | | daily with | | | food | | | (breakfast) | | | . If | | | tolerating | | | well after | | | three days, | | | start 500 | | | mg twice | | | daily with | | | food | | | (breakfast | | | and | | | dinner). | | | Then, if | | | tolerating | | | well after | | | another | | | three days, | | | start 1000 | | | mg daily | | | with | | | breakfast | | | and stay at | | | 500 mg | | | daily with | | | dinner. | | | Finally, if | | | tolerating | | | well after | | | another | | | three days, | | | stay at | | | 1000 mg | | | daily with | | | breakfast | | | and start | | | 1000 mg | | | daily with | | | dinner for | | | a goal of | | | 2000 mg. | | | Destination | | | Home | | | Condition | | | Stable | | | Vitals on | | | discharge: | | | Ht 1.499 m | | | (4' 11"), | | | Wt 169.1 kg | | | (372 lb | | | 12.8 oz), | | | BP 115/60, | | | Pulse 94, | | | Temperature | | | 37 C | | | (98.6 F), | | | RR 18, | | | SpO2 93%, | | | BMI 75.3 | | | kg/(m^2). | | | Facility | | | age limit | | | for growth | | | percentiles | | | is 20 | | | years.Outst | | | anding | | | labs/studie | | | s: | | | NonePhysica | | | l | | | ExamGeneral | | | : Alert, | | | oriented, | | | NADRespirat | | | ory: | | | Breathing | | | comfortably | | | Cardiovascu | | | lar: | | | RRRAbdomen: | | | soft, | | | appropriate | | | ly tender, | | | non | | | distended, | | | lap | | | incisions | | | sites are | | | without | | | drainage, | | | surrounding | | | erythema | | | or | | | induration. | | | Extremities | | | : warm, | | | well | | | perfused, | | | no edema | | | notedFuture | | | | | | Appointment | | | s | | | Provider | | | Department | | | Dept Phone | | | Center | | | 03/10/2018 | | | 1:30 PM | | | [facility] | | | [facility] | | | Digest[facility] | | | Health | | | Center at | | | [facility] | | | Floor | | | [phone] | | | 6 FOOD AND | | | NUT | | | 03/10/2018 | | | 3:05 PM | | | [facility] | | | [facility] | | | Digestive | | | Health | | | Center at | | | [facility] | | | Floor | | | [phone] | | | 3 Dig | | | Health | | | 04/01/2018 | | | 10:30 AM | | | [facility] | | | [facility] | | | Digestive | | | Health | | | Center at | | | [facility] | | | Floor | | | [phone] | | | 6 FOOD AND | | | NUT | | | 04/01/2018 | | | 11:00 AM | | | Lemon A | | | D[facility] | | | Digestive | | | Health | | | Center at | | | [facility] | | | Floor | | | [phone] | | | 3 Dig | | | Health | | | 05/27/2018 | | | 2:30 PM | | | [facility] | | | [facility] | | | Digestive | | | Health | | | Center at | | | [facility] | | | Floor | | | [phone] | | | 6 FOOD AND | | | NUT | | | 05/27/2018 | | | 3:05 PM | | | Ronna | | | [facility] | | | Digestive | | | Health | | | Center at | | | [facility] | | | Floor | | | [phone] | | | 3 Dig | | | Health | | | 05/27/2018 | | | 4:30 PM | | | Demar | | | [facility] | | | [place] at | | | [facility] 15 | | | Floor | | | [phone] | | | 6 | | | Comprehensi | | | v | | | 06/04/2018 | | | 10:35 AM | | | Randell | | | Tiny | | | Cardiology | | | Preventive | | | at [facility] | | | [phone] | | | 0 | | | Cardiology | | | | | | Discharging | | | Physician: | | | Aura | | | Petcu, | | | ACNPAttendi | | | ng | | | Physician: | | | Ion Colvin | | | MD Dannie | | | [facility] | | | Surgery(503 | | | [phone] | | | Pager# | | | [phone] | | | AM03/03/2018 | +---+ + +--------+ +---+ + + | 03/01/ | Pharmacy | | | | | 2017 | Visit | | | | +--------+ +---+ + + | 03/01/ | Anesthesia | | Sree, | | | 2017 | Event | | Jason Murcia MD | | +--------+ +---+ + + | 08/06/ | Procedure | | | | | 2017 | Pass | | | | +--------+ +---+ + + | 03/01/ | Surgery | | Ion Pandey, | LAPAROSCOPIC NISH EN | | 2017 | | | MD | Y GASTRIC BYPASS | +--------+ +---+ + + | 02/28/ | Pharmacy | | | | | 2017 | Visit | | | | +--------+ +---+ + + | 02/22/ | Office | | Gay Hoff, | Preop examination | | 2017 | Visit | | DNP,ANP | (Primary Dx) | +--------+ +---+ + + | 02/22/ | Anesthesia | | Gay Hoff, | | | 2017 | Event | | DNP,ANP | | +--------+ +---+ + + from Last 3 Months Family [...] Saturation | 93% | 03/03/2018 8:50 AM PDT | + + + + [...] + + | 05/27/ | Office | | Tejas Cevallos, | | | 2017 | Visit | | RD [address] | | | | | | [address] | | | | | | [place], [place] | | | | | | [phone] | | +--------+---------+ + + + | 05/27/ | Office | | Ronna Clarke, | | | 2017 | Visit | | ACNP [address] | | | | | | [place], [place] | | | | | | [phone] | | | | | | [phone] | | | | | | | | +--------+---------+ + + + | 05/27/ | Office | | Demar Cueva, PhD | | | 2017 | Visit | | [address] [place] | | | | | | [place], [place] | | | | | | [address] | | | | | | [phone] | | | | | | | | +--------+---------+ + + + | 06/04/ | Office | | Randell Franks, | | | 2017 | Visit | | MD [address] | | | | | | [address] [place], [place] | | | | | | [address] | | | | | | [phone] | | | | | | | [...] + + | Influenza (Flu) | | 06/04/2017, 04/16/2016, | | | vaccination (#1) | 8 | 04/19/2015, Additional history | | | | | exists | | + + + + + | HEMOGLOBIN A1C | | 02/22/2018, 11/20/2017, | | | | 9 | 11/28/2016, Additional history | | | | | exists | | + + + + + | CREATININE | | 02/22/2018, 11/20/2017, | | | | 9 | 01/01/2017, Additional history | | | | | exists | | + + + + + | DIABETES | | 04/01/2018, 03/10/2018, | | | SELF-MANAGEMENT | 9 | 02/02/2017, Additional history | | | EDUCATION | | exists | | + + + + + | CHOLESTEROL | | 11/20/2017, 11/28/2016 | | | SCREENING | 3 | | | + + + + + | Pneumococcal (Adult) | Completed | 08/07/2015 | | + + + + + Implants + +------+------+ +--------+--------+--------+ | Implanted | Type | Area | Manufacture | Device | Expira | Model | | | | | r | | tion | / | | | | | | Identi | Date | Serial | | | | | | fier | | / Lot | + +------+------+ +--------+--------+--------+ | Reinforcement Staple Line | | | [employer] | | 04/25/ | 12BSGE | | Bioabsorbable Sterile | | | [employer] | | 2019 | [id number] / | | Seamguard Latex Free | | | | | | | | Disposable Blue Gold Green - | | | | | | /[id number] | | [id number]: Qty: 1 on | | | | | | 525 | | 03/01/2018 by Ion Pandey | | | | | | | | MD Vinicius | | | | | | | + +------+------+ +--------+--------+--------+ | Reinforcement Staple Line | | | [employer] | | 11/23/ | 12BSGE | | [employer]able Sterile | | | [employer] | | 2020 | [id number] / | | Seamguard Latex Free | | | | | | | | Disposable Blue Gold Green - | | | | | | /[id number] | | [id number]: Qty: 1 on | | | | | | 173 | | 03/01/2018 by Ion Pandey | | | | | | | | AMD | | | | | | | + +------+------+ +--------+--------+--------+ Procedures + +--------+ + + + | Procedure Name | Priori | Date/Time | Associated Diagnosis | Comments | | | ty | | | | + +--------+ + + + | PA MNT RE-ASSESSMNT | Routin | 04/01/2018 | History of | | | X15MIN | e | 12:23 PM | Insh-en-Y gastric | | | | | PDT [...] ASPIRATE | e | 3:55 PM | Nish-en-Y gastric | procedure are in the | [...] | + +--------+ + + + | PA MNT RE-ASSESSMNT | Routin | 03/10/2018 | Severe Morbid | | | X15MIN | e | 2:36 PM | obesity ([facility]), BMI | | | | | PDT | 88 Type 2 diabetes | | | | | | mellitus without | | | | | | complication, with | | | | | | long-term current | | | | | | use of insulin ([facility]) | | | | | | S/P [...] | | NISH-EN-Y GASTRIC | ve | 8:30 AM | ([facility]) | | | [...] | + +--------+ + + + | PA COLLECTION VENOUS | Routin | 02/22/2018 | [...] + + from Last 3 Months Results CULTURE, WOUND ABSCESS OR ASPIRATE W/ [...] | + + + + + | [facility] - | [address] | [place] [address] | | | [place] | | | | + + + + + CAPILLARY BLOOD GLUCOSE (NO CHG), POC (03/03/2018 12:37 PM)Only the most recent of 27 resul ts within the time period is included. + +---------+ + + | Component | Value | Ref Range | Performed At | + +---------+ + + | BLOOD GLUCOSE, POC | 123 (H) | 70 - 99 mg/dL | [facility] | | | | | [facility] | | | | | CARE TESTS | + +---------+ + + + + + + + | Performing | Address | City/State/Zipcode | Phone Number | | Organization | | | | + + + + + | [facility] | [address] | [place], [place] | | | [facility] | [address] | [address] | | | TESTS | | | | + + + + + PROCEDURE NOTE (03/01/2018 6:55 PM)LAPAROSCOPIC GASTRIC BYPASS AND NISH-EN-Y GASTROENTEROS DERRICK WITH NISH LIMB 150 CM OR LESS (03/01/2018 11:21 AM) + + + | Narrative | Performed At | + + + | Ion Pandey MD 03/01/2018 12:25 PM Date of Procedure: | | | 03/01/18 Primary Surgeon: Ion Pandey MD Co Surgeon or | | | podiatric assistant: Eldon Gonzalez MD, Chief Resident Alexx [...] laid supine on the operating table. All | | | pressure points were padded. SCDs were in place, turned on, and | | | functioning. A surgical time-out was performed with the operative | | | team. General anesthesia was performed and the patient | | | tolerated this. The abdomen was prepped and draped in the | | | normal standard fashion. The prep was allowed to dry | | | appropriately. A 5mm visiport trocar was used to enter the | | | abdomen via a 5mm right upper quadrant incision. Insufflation was | | | started without incidence. The abdomen was examined and no | | | injuries to surrounding tissue were identified. The patient | | | tolerated insufflation well. An addition 5mm camera port in the | | | epigastric midline 18 cm inferior to xyphoid and a 12mm trocar in | | | the LUQ were placed under direct visualization. The site of entry | | | was up-sized to a 12mm trocar. Finally a 5 mm trocar was placed in | | | the LUQ laterally. All trocars were placed under direct | | | visualization. The abdomen was examined. There was a large | | | incarcerated umbilical hernia containing omentum and small bowel, | | | this was not disturbed. The transverse colon and omentum were | | | attempted to be retracted cranially, unfortunately the omentum was | | | somewhat difficult to elevate. Thus we divided the omentum from | | | lateral up to the transverse colon. The transverse colon was exposed | | | and retracted cranially, the Ligament of Treitz (LOT) was exposed. | | | The jejunum was measured 150cm distal to the LOT. The jejunum was | | | divided with 60 mm [place] stapler with white load and the distal | | | staple line was marked with silk suture. The mesentery was | | | divided with harmonic ultrasonic device. The distal jejunum was | | | measure to 150 cm. A stay-suture was placed at this location to | | | the proximal divided staple line (biliopancreatic limb). | | | Enterotomies were created in each limb and a 60mm [place] stapler | | | with white load was fired to create a [id number] | | | jejunojejunostomy. The anastamosis was confirmed to be widely | | | patent and hemostatic. The common enterotomy was closed by | | | placing 2 stay sutures along the enterotomy for retraction and | | | firing an [place] 60mm stapler with white load across the | | | enterotomy. Care was taken to avoid narrowing of the | | | jejunojejunostomy. A running permanent v-loc suture was used to | | | close the mesenteric defect at this site and lembert the proximal | | | staple closure adjacent to the original enterotomies. The | | | remaining omentum was divided from the edge to the transverse colon | | | to greater gastric curve to allow the nish limb to pass antecolic | | | and antegastric without tension. The omentum was reduced to cover | | | the jejunojejunostomy and tucked posterior to the nish limb. A | | | Nathansen liver retractor was placed in the subxiphoid | | | position. The angle of His was identified and blunt dissection | | | was done to divide the phrenoesophageal ligament. The pouch was | | | measure to 4cm distal to the G-E Junction. A window was created | | | in the lesser curve soft tissue at this location. Dissection was | | | performed with a combination of blunt and harmonic instruments in | | | the retrogastric space until the lesser sac was entered. The 60mm | | | [place] stapler with blue load was placed and fired transversely to | | | start gastric pouch formation. At this point in time, despite | | | communication and confirmation with anesthesia that items were | | | removed from the mouth, we noted the transoral temperature probe to | | | be incorporated into the staple line. This was dissected free from | | | the gastric pouch sharply and this allow anesthesia to remove the | | | probe. The distal aspect was then freed up from the gastric remnant | | | with Harmonic scalpel. A small distal tip of probe, approximately | | | 1.5 cm in length, was removed. This was compared with the divided | | | end of the probe and appeared to be a completely removed. The | | | gastric remnant gastrotomy was approximated with a stay suture for | | | retraction and the closed with a blue load of the 60mm stapler. The | | | [place] was then fired longitudinally towards the angle of His to | | | create the gastric pouch, leaving the gastrotomy from foreign body | | | removal, on the pouch. Dissection was performed retrogastric to | | | connect posterior and anterior dissection planes and ensure adequate | | | fundus exclusion. Additional fires of the [place] stapler were | | | performed with blue loads to create the longitudinal wall of the | | | gastric pouch up to the angle of His. Final load included a seam | | | guard. After division, omentum was tucked over the gastric | | | remnant staple line after it was ensured to be hemostatic. The | | | entire pouch and remnant gastric staple lines were inspected, any | | | areas of ooze were controlled with 5 mm clip body and fender worker. A 25mm Orvil | | | was passed transorally by anesthesia. The OG tube was seen in the | | | pouch and passed through the gastrotomy that was created by removal | | | of the temp probe, to grasp the OG tube. The OG tube was grasped | | | and removed through the left upper quadrant site until the anvil was | | | lodged into the gastric pouch securely. The suture was divided | | | and OG tube removed. A single 2-0 Vicryl suture was used to cinch | | | the mucosa around the anvil, as the defect was slightly | | | enlarged. This allowed good purse-string effect around the anvil. | | | The jejunal staple line on the nish limb was identified with the | | | alondra drain. The jejunal staple line was opened with harmonic | | | scalpel. The left upper quadrant trocar was removed and the | | | incision was extended to 3cm. A wound protector was | | | placed. The EEA stapler was passed into the abdomen and placed | | | into the opened jejunal enterotomy. The spike was advanced and | | | attached to the anvil. The stapler was closed and fired. The | | | EEA stapler was removed and the transoral sutures were | | | removed. The jejunal enterotomy was closed with 60mm [place] | | | stapler with a white load. Medially and laterally, an interrupted | | | 2-0 vicryl suture was placed from gastric pouch to nish limb to | | | relieve tension on the anastomosis. All staple lines with examined | | | for hemostasis and staple integrity. The small amount of jejunal | | | tissue were removed via the wound protector. The wound protector | | | was removed and the fascia was closed with 2 interrupted 0 Vicryl | | | sutures using a transfascial suture passer. The wound was | | | irrigated copiously prior to tying down the sutures. This site | | | was infiltrated with 20cc of local anesthetic. A bowel clamp was | | | placed on the nish limb. An endoscopy was performed with | | | visualization of the gastric pouch, gastrojejunostomy, and jejunal | | | mucosa. All were healthy, hemostatic, and staple lines were | | | intact and strong with insufflation. The entire area was | | | submerged under saline and no bubbling or leakage was seen. A single | | | anti-tension suture, using 2-0 Vicryl, was placed at the medial | | | aspect of the pouch to the nish limb. Irrigation was | | | removed. Omentum was placed circumferentially around the | | | gastrojejunostomy. The clamp and liver retractor were | | | removed. All trocar sites were examined and appeared | | | hemostatic. Trocars were removed. Skin was irrigated and | | | closed with 4-0 monocryl and dermabond. The patient was extubated | | | and transferred to the recovery room in stable condition. I was | | | present for the entirety of this procedure. There was no | | | qualified resident available and Dr. Wagner was present as my | | | podiatric assistant for the entire procedure, given the technically | | | challenging nature of this procedure. She assisted in all critical | | | steps of the procedure. Dr. Gonzalez was present for endoscopy at the | | | end of the procedure. Ion Pandey MD, FACS, [facility] | | | Bariatric Surgery | | + + + EGD (ESOPHAGOGASTRODUODENOSCOPY) (03/01/2018 11:21 AM) + + + | Narrative | Performed At | + + + | Ion Pandey MD 03/01/2018 12:25 PM Date of Procedure: | | | 03/01/18 Primary Surgeon: Ion Pandey MD Co Surgeon or | | | podiatric assistant: Eldon Gonzalez MD, Chief Resident Alexx [...] laid supine on the operating table. All | | | pressure points were padded. SCDs were in place, turned on, and | | | functioning. A surgical time-out was performed with the operative | | | team. General anesthesia was performed and the patient | | | tolerated this. The abdomen was prepped and draped in the | | | normal standard fashion. The prep was allowed to dry | | | appropriately. A 5mm visiport trocar was used to enter the | | | abdomen via a 5mm right upper quadrant incision. Insufflation was | | | started without incidence. The abdomen was examined and no | | | injuries to surrounding tissue were identified. The patient | | | tolerated insufflation well. An addition 5mm camera port in the | | | epigastric midline 18 cm inferior to xyphoid and a 12mm trocar in | | | the LUQ were placed under direct visualization. The site of entry | | | was up-sized to a 12mm trocar. Finally a 5 mm trocar was placed in | | | the LUQ laterally. All trocars were placed under direct | | | visualization. The abdomen was examined. There was a large | | | incarcerated umbilical hernia containing omentum and small bowel, | | | this was not disturbed. The transverse colon and omentum were | | | attempted to be retracted cranially, unfortunately the omentum was | | | somewhat difficult to elevate. Thus we divided the omentum from | | | lateral up to the transverse colon. The transverse colon was exposed | | | and retracted cranially, the Ligament of Treitz (LOT) was exposed. | | | The jejunum was measured 150cm distal to the LOT. The jejunum was | | | divided with 60 mm [place] stapler with white load and the distal | | | staple line was marked with silk suture. The mesentery was | | | divided with harmonic ultrasonic device. The distal jejunum was | | | measure to 150 cm. A stay-suture was placed at this location to | | | the proximal divided staple line (biliopancreatic limb). | | | Enterotomies were created in each limb and a 60mm [place] stapler | | | with white load was fired to create a [id number] | | | jejunojejunostomy. The anastamosis was confirmed to be widely | | | patent and hemostatic. The common enterotomy was closed by | | | placing 2 stay sutures along the enterotomy for retraction and | | | firing an [place] 60mm stapler with white load across the | | | enterotomy. Care was taken to avoid narrowing of the | | | jejunojejunostomy. A running permanent v-loc suture was used to | | | close the mesenteric defect at this site and lembert the proximal | | | staple closure adjacent to the original enterotomies. The | | | remaining omentum was divided from the edge to the transverse colon | | | to greater gastric curve to allow the nish limb to pass antecolic | | | and antegastric without tension. The omentum was reduced to cover | | | the jejunojejunostomy and tucked posterior to the nish limb. A | | | Nathansen liver retractor was placed in the subxiphoid | | | position. The angle of His was identified and blunt dissection | | | was done to divide the phrenoesophageal ligament. The pouch was | | | measure to 4cm distal to the G-E Junction. A window was created | | | in the lesser curve soft tissue at this location. Dissection was | | | performed with a combination of blunt and harmonic instruments in | | | the retrogastric space until the lesser sac was entered. The 60mm | | | [place] stapler with blue load was placed and fired transversely to | | | start gastric pouch formation. At this point in time, despite | | | communication and confirmation with anesthesia that items were | | | removed from the mouth, we noted the transoral temperature probe to | | | be incorporated into the staple line. This was dissected free from | | | the gastric pouch sharply and this allow anesthesia to remove the | | | probe. The distal aspect was then freed up from the gastric remnant | | | with Harmonic scalpel. A small distal tip of probe, approximately | | | 1.5 cm in length, was removed. This was compared with the divided | | | end of the probe and appeared to be a completely removed. The | | | gastric remnant gastrotomy was approximated with a stay suture for | | | retraction and the closed with a blue load of the 60mm stapler. The | | | [place] was then fired longitudinally towards the angle of His to | | | create the gastric pouch, leaving the gastrotomy from foreign body | | | removal, on the pouch. Dissection was performed retrogastric to | | | connect posterior and anterior dissection planes and ensure adequate | | | fundus exclusion. Additional fires of the [place] stapler were | | | performed with blue loads to create the longitudinal wall of the | | | gastric pouch up to the angle of His. Final load included a seam | | | guard. After division, omentum was tucked over the gastric | | | remnant staple line after it was ensured to be hemostatic. The | | | entire pouch and remnant gastric staple lines were inspected, any | | | areas of ooze were controlled with 5 mm clip body and fender worker. A 25mm Orvil | | | was passed transorally by anesthesia. The OG tube was seen in the | | | pouch and passed through the gastrotomy that was created by removal | | | of the temp probe, to grasp the OG tube. The OG tube was grasped | | | and removed through the left upper quadrant site until the anvil was | | | lodged into the gastric pouch securely. The suture was divided | | | and OG tube removed. A single 2-0 Vicryl suture was used to cinch | | | the mucosa around the anvil, as the defect was slightly | | | enlarged. This allowed good purse-string effect around the anvil. | | | The jejunal staple line on the nish limb was identified with the | | | alondra drain. The jejunal staple line was opened with harmonic | | | scalpel. The left upper quadrant trocar was removed and the | | | incision was extended to 3cm. A wound protector was | | | placed. The EEA stapler was passed into the abdomen and placed | | | into the opened jejunal enterotomy. The spike was advanced and | | | attached to the anvil. The stapler was closed and fired. The | | | EEA stapler was removed and the transoral sutures were | | | removed. The jejunal enterotomy was closed with 60mm [place] | | | stapler with a white load. Medially and laterally, an interrupted | | | 2-0 vicryl suture was placed from gastric pouch to nish limb to | | | relieve tension on the anastomosis. All staple lines with examined | | | for hemostasis and staple integrity. The small amount of jejunal | | | tissue were removed via the wound protector. The wound protector | | | was removed and the fascia was closed with 2 interrupted 0 Vicryl | | | sutures using a transfascial suture passer. The wound was | | | irrigated copiously prior to tying down the sutures. This site | | | was infiltrated with 20cc of local anesthetic. A bowel clamp was | | | placed on the nish limb. An endoscopy was performed with | | | visualization of the gastric pouch, gastrojejunostomy, and jejunal | | | mucosa. All were healthy, hemostatic, and staple lines were | | | intact and strong with insufflation. The entire area was | | | submerged under saline and no bubbling or leakage was seen. A single | | | anti-tension suture, using 2-0 Vicryl, was placed at the medial | | | aspect of the pouch to the nish limb. Irrigation was | | | removed. Omentum was placed circumferentially around the | | | gastrojejunostomy. The clamp and liver retractor were | | | removed. All trocar sites were examined and appeared | | | hemostatic. Trocars were removed. Skin was irrigated and | | | closed with 4-0 monocryl and dermabond. The patient was extubated | | | and transferred to the recovery room in stable condition. I was | | | present for the entirety of this procedure. There was no | | | qualified resident available and Dr. Wagner was present as my | | | podiatric assistant for the entire procedure, given the technically | | | challenging nature of this procedure. She assisted in all critical | | | steps of the procedure. Dr. Gonzalez was present for endoscopy at the | | | end of the procedure. Ion Pandey MD, FACS, [facility] | | | Bariatric Surgery | | + + + ANE ETT (03/01/2018 9:42 AM) + + + | [...] by Resident | | + + + INTRAPROCEDURE IMAGING (03/01/2018 6:09 AM) + + + | Narrative | Performed At | + + + | See admission or procedure notes for details of any intraprocedure | | | images obtained. | | + + + CARDIOLOGY (03/01/2018) + + + | Narrative | Performed At | + + + | | | + + + CBC AND AUTO DIFF (02/22/2018 1:25 PM) + + + + + | Component | Value | Ref Range | Performed At | + + + + + | WHITE CELL COUNT | 16.06 (H) | 3.50 - 10.80 K/cu mm | [facility] | | | | | SERVICES, CORE | + + + + + | RED CELL COUNT | 5.12 | 4.00 - 5.20 M/cu mm | [facility] | | | | | SERVICES, CORE | + + + + + | HEMOGLOBIN | 14.3 | 12.0 - 16.0 g/dL | [facility] | | | | | SERVICES, CORE | + + + + + | HEMATOCRIT | 44.5 | 36.0 - 46.0 % | [facility] | | | | | SERVICES, CORE | + + + + + | MCV | 86.9 | 80.0 - 100.0 fL | [facility] | | | | | SERVICES, [...] | 150 - 400 K/cu mm | [facility] | | | | | SERVICES, CORE | + + + + + | MPV | 10.0 | 9.7 - 12.3 fL | [facility] | | | | | SERVICES, CORE | + + + + + | NRBC% | 0.0 | 0.0 - 0.3 % | [facility] | | | | | SERVICES, CORE | + + + + + | NRBC# | 0.00 | 0.00 - 0.02 K/cu mm | [facility] | | | | | SERVICES, CORE | + + + + + | NEUTROPHIL % | 68.2 | 50.0 - 70.0 % | [facility] | | | [...] | 1.0 - 3.0 % | [facility] | | | | | SERVICES, CORE | + + + + + | BASO % | 0.5 | 0.0 - 2.0 % | [facility] | | | [...] | 0.00 - 0.10 K/cu mm | [facility] | | | | | SERVICES, [...] | + + + + + | [facility] | [address] | [place] [address] | | | SERVICES, CORE | [address] [...] LABORATORY | | (LAB) | | | CLAIRE CORE | + +---------+ + + | BUN, PLASMA (LAB) | 25 (H) | 6 - 20 mg/dL | [facility] | | | | | LYDIA RANGEL | + +---------+ + + | CREATININE PLASMA | 0.93 | 0.60 - 1.10 mg/dL | [facility] | | (LAB) | | | CLAIRE, CORE | + +---------+ + + | EGFR - | >60 | >60 mL/min | [facility] | | TURKMEN | | | SERVICES, CORE | + +---------+ + + | EGFR NON | >60 | >60 mL/min | [facility] | | -TURKMEN | | | SERVICES, CORE | + [...] | | PLASMA (LAB) | | | SERVICES, CORE | + +---------+ + + | ALBUMIN, PLASMA | 3.3 (L) | 3.5 - 4.7 g/dL | [facility] | | (LAB) | | | SERVICES, CORE | + +---------+ + + | ALK [...] | Interpretive Information: <60 mL/min/1.73 sq | SERVICES, [facility] | | m Chronic Kidney Disease <15 [...] | + + + + + | [facility] | [address] | [place] [address] | | | SERVICES, CORE | [address] | | | + + + + + ANTIBODY SCREEN (02/22/2018 1:25 PM) + + + + + | Component | Value | Ref Range | Performed At | + + + + + | Antibody Screen | Negative | | [facility] | | | | | SERVICES, [...] [facility] | [address] | [place] [address] | | | SERVICES, | [address] [...] [facility] | [address] | [place] [address] | | | SERVICES, | [address] | | | | TRANSFUSION MEDICINE | | | | + + + + + HEMOGLOBIN A1C, BLOOD (02/22/2018 1:25 PM) + + + + + | Component | Value | Ref Range | Performed At | + + + + + | HEMOGLOBIN A1C | 7.1 (H)Comment: Hgb A1C | <5.7 % | [facility] | | | Interpretive | | [...] | [facility] | | considered for monitoring usp glycemic control in patients with: | LABORATORY [...] [facility] | [address] | [place] [address] | | | SERVICES, SPECIAL | [address] [...] + + + + | [facility] | [address] | [place], [place] | | | CARDIOLOGY | [address] | [address] | | + + + + + from Last 3 Months Insurance + +--------+ +--------+-------+---------+ | Payer | Benefi | Subscriber | Type | Phone | Address | | | t Plan | ID | | | | | | / | | | | | | | Group | | | | | + +--------+ +--------+-------+---------+ | [employer] | [employer] | xxxxxxxx | Medica | | | | | [place] | | id | | | | | [place] | | | | | + +--------+ +--------+-------+---------+ + +--------+ +--------+ + + | Guarantor Name | Accoun | Relation to | Date | Phone | Billing Address | | | t Type | Patient | of | | | | | | | | | | + +--------+ +--------+ + + | DYLAN ROMERO | Person | Self [birth year] | Home: | [address] | | | al/Fam | | 1974 | [phone] [address] [place], [place] | | | mireya | | | [phone] | + +--------+ +--------+ + +
--- OUTSIDE RECORDS SUMMARY | ~2018-04-27 | XMS | Encounter Summary ---
Demographics + + + | Address | [address] | | | [place] [address] | + + + | Home Phone [...] + | KENNY BERRY | ECON | [address] | | | | | [place], [place] | | | | | [address] | | + + + + + | MAXIMILIANO FARRELL ECON | Unknown | | + + + + + Care Team Providers + +------+ + | Care Client Development Manager Name | Role | Phone | + +------+ + | Fadi Goodrich DO | PCP | | + +------+ + Encounter Details +--------+ + + + + | Date | Type | Department | Care Team | Description | +--------+ + + + + | 03/16/ | Telephone | Digestive Health | Ronna Clarke, | | | 2018 | | Center [facility]th | ACNP [address] | | | | | Floor [address] | [address] [place], [place] | | | | | [place] Mailcode: CH4S | [address] | | | | | [facility] | [phone] | | | | | and Healing, 6th | | | | | | floor [place], [place] | | | | | | [address] | | | | | | [phone] | | | +--------+ + + + [...] [address] | | | | | | [place], [place] | | | | | | [address] | | +--------+---------+ + + + | 05/27/ | Office | Surgery | Ronna Clarke, | | | 2017 | Visit | | ACNP [address] | | | | | | [place], [place] | | | | | | [address] | | | | | | [phone] | | | | | | | | +--------+---------+ + + + | 05/27/ | Office | Pain Management | Demar Cueva, PhD | | | 2018 | Visit | | [address] | | | | | | [place], [place] | | | | | | [address] | | | | | | [phone] | | | | | | | | +--------+---------+ + + + | 06/04/ | Office | Cardiology | Randell Franks, | | | 2017 | Visit | | [address] | | | | | | [place], [place] | | | | | | [address] | | | | | | [phone] | | | | | | | | +--------+---------+ + + + as of this encounter Visit Diagnoses Not on filein this encounter"
--- OUTSIDE RECORDS SUMMARY | ~2018-04-27 | XMS | Encounter Summary ---
Demographics + + + | Address | [address] | | | [place] [address] | + + + | Home Phone [...] + | KENNY BERRY | ECON | [address] | | | | | [place], [place] | | | | | [address] | | + + + + + | MAXIMILIANO FARRELL ECON | Unknown | | + + + + + Care Team Providers + +------+ + | Care Profiler Operator Name | Role | Phone | + +------+ + | Fadi Goodrich DO | PCP | | + +------+ + Encounter Details +--------+ + + + + | Date | Type | Department | Care Team | Description | +--------+ + + + + | 02/22/ | Anesthesia | Preoperative | Luis Eduardo, Gay S, | | | 2018 | Event | [facility] at | DNP,ANP [address] | | | | | [facility] 4th Floor [address] | | | | | [address] | [place], [place] | | | | | Code: [address] | [address] | | | | | for Health and | [phone] | | | | | Healing, 4th Floor | | | | | | [place], [place] | | | | | | [address] | | | | | | [phone] | | | +--------+ + + + [...] 2017 | Visit | | [address] | | | | | | [address] | | | | | | [place], [place] | | | | | | [address] | | +--------+---------+ + + + | 05/27/ | Office | Surgery | Ronna Clarke, | | | 2017 | Visit | | ACNP [address] | | | | | | [place] [place] | | | | | | [address] | | | | | | [phone] | | | | | | | | +--------+---------+ + + + | 05/27/ | Office | Pain Management | Demar Cueva, PhD | | | 2017 | Visit | | [address] | | | | | | [place], [place] | | | | | | [address] | | | | | | [phone] | | | | | | | | +--------+---------+ + + + | 06/04/ | Office | Cardiology | Randell Franks, | | | 2017 | Visit | | [address] | | | | | | [place] | | | | | | [address] | | | | | | [phone] | | | | | | | | +--------+---------+ + + + as of this encounter Visit Diagnoses Not on filein this encounter"
--- OUTSIDE RECORDS SUMMARY | ~2018-04-27 | XMS | Encounter Summary ---
Demographics + + + | Address | [address] | | | [place] [address] | + + + | Home Phone [...] + | KENNY BERRY | ECON | [address] | | | | | [place], [place] | | | | | [address] | | + + + + + | MAXIMILIANO FARRELL | ECON | Unknown | | + + + + + Care Team Providers + +------+ + | Care Trust Accounts Supervisor Name | Role | Phone | [...] at [facility] 6th | ACN [address] | gastric bypass | | | | Floor [address] | [address] [place], [place] | (Primary Dx); | | | | Ave Mailcode: CH4S | [address] | Ventral hernia | | | | [facility] | [phone] | without obstruction | | | | and Healing, 6th | | or gangrene; Mixed | | | | floor [place], [place] | | hyperlipidemia; | | | | [address] | | 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[phone] | | type 2 without | | [...] is doing Refill oxycodone Rx +Take acid branch manager for first 3 mos, then wean [...] POC and [facility] any [facility]. in this encounter [...] times daily. , Disp: , Rfl: CALCIUM [id number] ORAL, Take 2 tablets by mouth two [...] to 3 tablets by mouth every four cirsta rs as needed for moderate pain or [...] index of 70 and over in adult ([facility]) Myalgia and myositis Nausea Neck [...] Andie Brian Incisional hernia repair 03/01/2015 [facility]/ Dr. Cantu. Primary [...] History Narrative Updated 11/09/15 She lives in [place] with her mother and her sister (also her caregiver) [facility]. She has 2 grandchildren (age 4 and 7) who live with her daughter and son-in-law Her boyfriend lives in [place] HFpEF, DM2, HTN, Sleep Apnea (unable to tolerate CPAP), Hypothyroidism, Severe Obesity ([facility] max weight 495 lbs) Last [...] program here and refer her to our forestry biology specialist who also has expertise in physical [...] Increase torsemide to pre-surgical dose +Take acid branch manager for first 3 mos, then wean [...] she will make an appointment with her Glycerin Operator to discuss insulin dosing and CBGs [...] to POC and will call or send [employer] hi ssage if any issues. Start time 15:35, end time 15:55. I spent a total of 20 minutes face to face with this pat ient. Over 50% of visit was in counseling. ~ 10 minutes of additional time spent reviewing chart prior to visit and documenting after this visit. Ronna Clakre DNP ACNP MEDICAL DONATION PROFESSIONAL Bariatric Surgery Nurse Practitioner [facility] | [address] | [place], [place] | [address] | in this encounter Plan of Treatment +--------+---------+ + + + | Date | Type | Specialty | Care Team | Description | +--------+---------+ + + + | 05/27/ | Office | Nutrition | Tejas Cevallos, | | | 2018 | Visit | | [address] | | | | | | [address] | | | | | | [place] | | | | | | [address] | | +--------+---------+ + + + | 05/27/ | Office | Surgery | Ronna Clarke, | | | 2017 | Visit | | ACNP [address] | | | | | | [facility] [facility] [facility] [place] | | | | | | [address] | | | | | | [phone] | | | | | | | | +--------+---------+ + + + | 05/27/ | Office | Pain Management | Demar Cueva, PhD | | | 2018 | Visit | | [address] | | | | | | [place] | | | | | | [address] | | | | | | [phone] | | | | | | | | +--------+---------+ + + + | 06/04/ | Office | Cardiology | Randell Franks, | | | 2018 | Visit | | [address] | | | | | | [place] [facility] [place] | | | | | | [address] | | | | | | [phone] | | | | | | | [...] + | [facility] | [address] | [place] [address] | | | [place] | | | [...]
--- OUTSIDE RECORDS SUMMARY | ~2018-04-27 | XMS | Encounter Summary ---
Demographics + + + | Address | [address] | | | [place] [address] | + + + | Home Phone [...] + | KENNY BERRY | ECON | [address] | | | | | [place], [place] | | | | | [address] | | + + + + + | MAXIMILIANO FARRELL | ECON | Unknown | | + + + + + Care Team Providers + +------+ + | Care Fruit Or Nut Picker Name | Role | Phone | [...] Castanon, | LAPAROSCOPIC NISH EN | | 2018 | | [facility] | MD [address] | Y GASTRIC BYPASS | | | | Admitting Desk | [place], [place] | | | | | Located on the | [address] | | | | | floor [address] [facility] | [phone] | | | | | [facility] | | | | | | [place], [place] | | | | | | [address] | | | +--------+---------+ + + + [...] Pressure | 115/60 | 03/03/2018 8:50 AM PDT | + + + + | Pulse | 94 | 03/03/2018 8:50 AM PDT | + + + + | Temperature | 37 C (98.6 F) | 03/03/2018 8:50 AM PDT | + + + + | Respiratory Rate | 18 | 03/03/2018 8:50 AM PDT | + + + + | Oxygen Saturation | 93% | 03/03/2018 8:50 AM PDT | + + + + | Inhaled Oxygen | - | - | | Concentration | | | + + + + | Weight | 169.1 kg (372 lb | 03/01/2018 12:20 PM PDT | | | 12.8 oz) | | + + + + | Height | 149.9 cm (4' 11") | 03/01/2018 12:20 PM PDT | + + + + | Body Mass Index | 75.3 | 03/01/2018 12:20 PM PDT | + + + + [...] + + + as of this encounter Discharge Summaries Temitope Gavin ACNP - 03/03/2018 9:49 AM PDTFormatting of this note may be different from jennifer mendiola. [facility] RED SURGERY INPATIENT DISCHARGE SUMMARY Author: KAIN [...] to a bariatric full liquid diets. Our virtua voorhees dietitian was consulted and they discussed her [...] at minimum. 5. Follow with PCP for Human Resources Analyst within 1 - 2 weeks of [...] mg by mouth two times daily. CALCIUM [id number] ORAL Take 2 tablets by mouth two [...] yogurt or kefir. Zaria's Yogurt or Kefir, Bookmate Yogurt, and Probki Iz oknan i Serbian Yogurt are common brands with beneficial probiotics. [...] are available over the counter at most [employer] stores. Nausea/Vomiting/Difficulty Swallowing Nausea/Vomiting/Difficulty swallowing: Could be [...] hours per your instructions. Some medications, like [place], have Tylenol in it. Make sure you [...] (PCP) as this clinic does not provide [facility] chronic pain management services. When to Call [...] hours by calling the surgery office at [phone]. - After hours, weekends and holidays, you may call the hospital dosier operator at [phone] an d have the senior sales operations analyst Red Surgery Team paged. OTHER [...] at minimum. 5. Follow with PCP for Human Resources Analyst within 1 - 2 weeks of [...] Department Dept Phone Center 03/10/2018 1:30 PM [facility] at [facility] 6th Floor [phone] FO OD AND NUT 03/10/2018 3:05 PM Ronna Clarke [facility] at [facility] 6th Floor [phone] [facility] 04/01/2018 10:30 AM [facility] at [address] Floor [phone] FO OD AND NUT 04/01/2018 11:00 AM Ion Castanon [facility] at [address] Floor [phone] [facility] 05/27/2018 2:30 PM [facility] at [address] Floor [phone] FO OD AND NUT 05/27/2018 3:05 PM Ronna Clarke [facility] at [address] Floor [phone] [facility] 05/27/2018 4:30 PM Dem[facility] at [facility] 15th Floor [phone] Comprehensiv 06/04/2018 10:35 AM Randell Franks Cardiology [facility] at [facility] [phone] Cardiology Discharging Physician: KAIN Agee Attending Physician: Ion Castanon MD [facility] Red Surgery Pager# [phone] 9:50 AM 03/03/2018 in this encounter Medications at Time of Discharge + + + +---------+ + + | Medication | Sig. | Disp. | Refills | Start | End Date | | | | | | Date | | + + + +---------+ + + | acetaminophen 325 | Take 2 tablets by | 100 | 0 | 01/12/20 | | | mg oral | mouth every six | tablet | | 18 | | | tabletIndications: | hours as needed for | | | | | | Morbid obesity (HCC) | pain. Cut tablet | | | | | | | into small pieces. | | | | | | | Do not crush. | | | | | + + + +---------+ + + | ALPRAZolam 1 mg | Take 1 mg by mouth | | | | | | oral tablet | three times daily as | | | | | | | needed for anxiety. | | | | | + + + +---------+ + + | ascorbic acid | Take 500 mg by mouth | | | | | | (VITAMIN C) 500 mg | once daily. | | | | | | Oral tablet | | | | | | + + + +---------+ + + | aspirin EC 81 mg | Take 81 mg by mouth | | | | | | oral tablet,delayed | once daily. | | | | | | release (DR/EC) | | | | | | + + + +---------+ + + | atenolol 25 mg | Take 25 mg by mouth | | | 06/12/20 | | | oral tablet | two times daily. | | | 17 | | + + + +---------+ + + | CALCIUM | Take 2 tablets by | | | | | | [id number] | mouth two times | | | | | | IS ORAL | daily. | | | | | + + + +---------+ + + | ergocalciferol | Take 50,000 Units by | | | | | | (VITAMIN D2) 50,000 | mouth twice weekly | | | | | | unit oral capsule | (on Thursday and | | | | | | | ). | | | | | + + + +---------+ + + | FLUoxetine 20 mg | Take 60 mg by mouth | | | | | | oral tablet | once daily at | | | | | | | bedtime. | | | | | + + + +---------+ + + | gabapentin 300 mg | Take 300 mg by mouth | | | | | | oral capsule | four times daily. | | | | | + + + +---------+ + + | glycerin (ADULT) | Unwrap and insert 1 | 25 | 2 | 01/12/20 | | | rectal | suppository rectally | supposito | | 18 | | | suppositoryIndicatio | once daily as | ry | | | | | ns: Morbid obesity | needed for | | | | | | ([facility]) | constipation. | | | | | + + + +---------+ + + | magnesium oxide | Take 400 mg by mouth | | | | | | 400 mg oral tablet | once daily. | | | | | + + + +---------+ + + | metFORMIN 1,000 mg | See directions below | | | 03/03/20 | | | oral tablet | | | | 18 | | + + + +---------+ + + | OLANZapine 15 mg | Take 30 mg by mouth | | | | | | oral tablet | once daily at | | | | | | | bedtime. | | | | | + + + +---------+ + + | ondansetron ODT 4 | Dissolve 1 tablet on | 30 | 1 | 01/12/20 | | | mg oral | tongue and swallow | tablet | | 18 | | | tablet,disintegratin | every six hours as | | | | | | gIndications: Morbid | needed for | | | | | | obesity (HCC) | nausea/vomiting. | | | | | + + + +---------+ + + | polyethylene | Dissolve 17g (1 | 255 g | 0 | 01/12/20 | | | glycol 17 gram/dose | capful) into 4 | | | 18 | | | oral | ounces of liquid and | | | | | | powderIndications: | drink once daily as | | | | | | Morbid obesity (HCC) | needed for | | | | | | | constipation. | | | | | + + + +---------+ + + | potassium chloride | Take 2 tablets by | 120 | 0 | 11/21/19 | | | SR 20 mEq oral | mouth two times | tablet | | 16 | | | tablet,ER | daily. | | | | | | particles/crystals | | | | | | + + + +---------+ + + | simethicone chew | Chew and swallow 1 | 30 | 0 | 06/18/20 | | | 80 mg oral | tablet four times | tablet | | 18 | | | tablet,chewableIndic | daily as needed for | | | | | | ations: Morbid | gas/bloating. | | | | | | obesity (HCC) | | | | | | + + + +---------+ + + | sodium fluoride | Place onto the | | | | | | 1.1 % dental cream | teeth. Use to brush | | | | | | | teeth 2 to 3 [...] not swallow | | | | | + + + +---------+ + + | thyroid (ARMOUR | Take 30 mg by mouth | | | | | | THYROID) 30 mg oral | once daily. | | | | | | tablet tab | | | | | | + + + +---------+ + + | topiramate 200 mg | Take 50 mg by mouth | | | | | | oral | two times daily. | | | | | | tabletIndications: | Indications: | | | | | | Migraine Prevention | Migraine Prevention | | | | | + + + +---------+ + + | torsemide 100 mg | Take 0.5 tablets by | | | 03/02/20 | | | oral tablet | mouth two times | | | 18 | | | | daily. Resume half | | | | | | | dose for first week | | | | | | | post opertative | | | | | + + + +---------+ + + | traZODone 150 mg | Take 150 mg by mouth | | | | | | Oral tablet | once daily at | | | | | | | bedtime. | | | | | + + + +---------+ + + | TRESIBA FLEXTOUCH | Inject 28 Units | | | 03/03/20 | | | U-100 100 unit/mL (3 | under the skin | | | 18 | | | mL) subcutaneous | (SUBC) once daily | | | | | | insulin pen | with dinner. | | | | | + + + +---------+ + + | ursodiol 300 mg | Take 1 capsule by | 60 | 5 | 01/12/20 | | | oral | mouth two times | capsule | | 18 | 8 | | capsuleIndications: | daily. Start taking | | | | | | Morbid obesity (HCC) | two weeks after your | | | | | | | surgery. | | | | | + + [...] | + + + +---------+ + + as of this encounter Progress Notes Gino Calixto - 03/03/2018 6:32 AM PDTFormatting of this note may be different from the original. RED Surgical Team: Foregut/Bariatrics Daily Progress [...] date of discharge 03/03/18 PARTHA Calixto MS3 [facility] [employer] Demarcus Alas MD - 03/02/2018 11:00 AM PDTFormatting of this note may be different from the original. RED Surgical Team: Foregut/Bariatrics Daily Progress [...] for care ride home (pt lives in [place]) Demarcus Alas M.D. General Surgery Resident PGY-1 Pager: [phone] Ion Castanon MD - 03/02/2018 10:00 AM PDTI have seen and examined the patient. I concu r with the surgical team assessment and plan. Elzibeta is doing well, tolerating po intake. The [...] 03/02/2018 at 10:00 AM ION CASTANON MD. in this encounter Plan of Treatment +--------+---------+ + + + | Date | Type | Specialty | Care Team | Description | +--------+---------+ + + + | 05/27/ | Office | Nutrition | Tejas Cevallos, | | | 2017 | Visit | | RD [address] [facility] | | | | | | [address] | | | | | | [place], [place] | | | | | | [address] | | +--------+---------+ + + + | 05/27/ | Office | Surgery | Ronna Clarke, | | | 2017 | Visit | | ACNP [address] | | | | | | [address] [facility] [place] | | | | | | [address] | | | | | | [phone] | | | | | | | | +--------+---------+ + + + | 05/27/ | Office | Pain Management | Demar Cueva, PhD | | | 2017 | Visit | | [address] | | | | | | [place], [place] | | | | | | [address] | | | | | | [phone] | | | | | | | | +--------+---------+ + + + | 06/04/ | Office | Cardiology | Randell Franks, | | | 2017 | Visit | | MD [address] | | | | | | [address] [place], [place] | | | | | | [address] | | | | | | [phone] | | | | | | | [...] | | PDT | over, adult ([facility]) | results section. | + +--------+ + + + | CAPILLARY BLOOD | Routin | 03/03/2018 | Morbid obesity | Results for this | | GLUCOSE (NO CHG), | e | 7:54 AM | with BMI of 70 and | procedure are in the | | POC | | PDT | over, adult ([facility]) | results section. | + +--------+ + + + | CAPILLARY BLOOD | Routin | 03/03/2018 | Morbid obesity | Results for this | | GLUCOSE (NO CHG), | e | 6:28 AM | with BMI of 70 and | procedure are in the | | POC | | PDT | over, adult ([facility]) | results section. | + +--------+ + + + | CAPILLARY BLOOD | Routin | 03/02/2018 | Morbid obesity | Results for this | | GLUCOSE (NO CHG), | e | 9:17 PM | with BMI of 70 and | procedure are in the | | POC | | PDT | over, adult ([facility]) | results section. | + +--------+ + + + | CAPILLARY BLOOD | Routin | 03/02/2018 | Morbid obesity | Results for this | | GLUCOSE (NO CHG), | e | 6:50 PM | with BMI of 70 and | procedure are in the | | POC | | PDT | over, adult ([facility]) | results section. | + +--------+ + + + | CAPILLARY BLOOD | Routin | 03/02/2018 | Morbid obesity | Results for this | | GLUCOSE (NO CHG), | e | 3:46 PM | with BMI of 70 and | procedure are in the | | POC | | PDT | over, adult ([facility]) | results section. | + +--------+ + + + | CAPILLARY BLOOD | Routin | 03/02/2018 | Morbid obesity | Results for this | | GLUCOSE (NO CHG), | e | 2:36 PM | with BMI of 70 and | procedure are in the | | POC | | PDT | over, adult ([facility]) | results section. | + +--------+ + + + | CAPILLARY BLOOD | Routin | 03/02/2018 | Morbid obesity | Results for this | | GLUCOSE (NO CHG), | e | 1:33 PM | with BMI of 70 and | procedure are in the | | POC | | PDT | over, adult ([facility]) | results section. | + +--------+ + + + | CAPILLARY BLOOD | Routin | 03/02/2018 | Morbid obesity | Results for this | | GLUCOSE (NO CHG), | e | 11:36 AM | with BMI of 70 and | procedure are in the | | POC | | PDT | over, adult ([facility]) | results section. | + +--------+ + + + | CAPILLARY BLOOD | Routin | 03/02/2018 | Morbid obesity | Results for this | | GLUCOSE (NO CHG), | e | 10:32 AM | with BMI of 70 and | procedure are in the | | POC | | PDT | over, adult ([facility]) | results section. | + +--------+ + + + | CAPILLARY BLOOD | Routin | 03/02/2018 | Morbid obesity | Results for this | | GLUCOSE (NO CHG), | e | 9:23 AM | with BMI of 70 and | procedure are in the | | POC | | PDT | over, adult ([facility]) | results section. | + +--------+ + + + | CAPILLARY BLOOD | Routin | 03/02/2018 | Morbid obesity | Results for this | | GLUCOSE (NO CHG), | e | 8:36 AM | with BMI of 70 and | procedure are in the | | POC | | PDT | over, adult ([facility]) | results section. | + +--------+ + + + | CAPILLARY BLOOD | Routin | 03/02/2018 | Morbid obesity | Results for this | | GLUCOSE (NO CHG), | e | 7:35 AM | with BMI of 70 and | procedure are in the | | POC | | PDT | over, adult ([facility]) | results section. | + +--------+ + + + | CAPILLARY BLOOD | Routin | 03/02/2018 | Morbid obesity | Results for this | | GLUCOSE (NO CHG), | e | 6:33 AM | with BMI of 70 and | procedure are in the | | POC | | PDT | over, adult ([facility]) | results section. | + +--------+ + + + | CAPILLARY BLOOD | Routin | 03/02/2018 | Morbid obesity | Results for this | | GLUCOSE (NO CHG), | e | 5:28 AM | with BMI of 70 and | procedure are in the | | POC | | PDT | over, adult ([facility]) | results section. | + +--------+ + + + | CAPILLARY BLOOD | Routin | 03/02/2018 | Morbid obesity | Results for this | | GLUCOSE (NO CHG), | e | 4:36 AM | with BMI of 70 and | procedure are in the | | POC | | PDT | over, adult ([facility]) | results section. | + +--------+ + + + | CAPILLARY BLOOD | Routin | 03/02/2018 | Morbid obesity | Results for this | | GLUCOSE (NO CHG), | e | 2:46 AM | with BMI of 70 and | procedure are in the | | POC | | PDT | over, adult ([facility]) | results section. | + +--------+ + + + | CAPILLARY BLOOD | Routin | 03/02/2018 | Morbid obesity | Results for this | | GLUCOSE (NO CHG), | e | 12:32 AM | with BMI of 70 and | procedure are in the | | POC | | PDT | over, adult ([facility]) | results section. | + +--------+ + + + | CAPILLARY BLOOD | Routin | 03/01/2018 | Morbid obesity | Results for this | | GLUCOSE (NO CHG), | e | 10:31 PM | with BMI of 70 and | procedure are in the | | POC | | PDT | over, adult ([facility]) | results section. | + +--------+ + + + | CAPILLARY BLOOD | Routin | 03/01/2018 | Morbid obesity | Results for this | | GLUCOSE (NO CHG), | e | 8:21 PM | with BMI of 70 and | procedure are in the | | POC | | PDT | over, adult ([facility]) | results section. | + [...] | | PDT | over, adult ([facility]) | results section. | + +--------+ + + + | CAPILLARY BLOOD | Routin | 03/01/2018 | Morbid obesity | Results for this | | GLUCOSE (NO CHG), | e | 3:31 PM | with BMI of 70 and | procedure are in the | | POC | | PDT | over, adult ([facility]) | results section. | + +--------+ + + + | CAPILLARY BLOOD | Routin | 03/01/2018 | Morbid obesity | Results for this | | GLUCOSE (NO CHG), | e | 3:29 PM | with BMI of 70 and | procedure are in the | | POC | | PDT | over, adult ([facility]) | results section. | + +--------+ + + + | CAPILLARY BLOOD | Routin | 03/01/2018 | Morbid obesity | Results for this | | GLUCOSE (NO CHG), | e | 2:30 PM | with BMI of 70 and | procedure are in the | | POC | | PDT | over, adult ([facility]) | results section. | + +--------+ + + + | CAPILLARY BLOOD | Routin | 03/01/2018 | Morbid obesity | Results for this | | GLUCOSE (NO CHG), | e | 1:35 PM | with BMI of 70 and | procedure are in the | | POC | | PDT | over, adult ([facility]) | results section. | + +--------+ + + + | CAPILLARY BLOOD | Routin | 03/01/2018 | Morbid obesity | Results for this | | GLUCOSE (NO CHG), | e | 12:16 PM | with BMI of 70 and | procedure are in the | | POC | | PDT | over, adult ([facility]) | results section. | + [...] | | PDT | over, adult ([facility]) | results section. | + +--------+ + + + | LAPAROSCOPIC | Electi | 03/01/2018 | Morbid obesity | | | NISH-EN-Y GASTRIC | ve | 8:30 AM | ([facility]) | | | BYPASS | [...] + + + in this encounter Results CAPILLARY BLOOD GLUCOSE (NO CHG), POC (03/03/2018 12:37 PM) + +---------+ + + | Component [...] [facility] | [address] | [place], [place] | | | [facility] | [address] | [address] | | | TESTS | | | | + + + + + CAPILLARY BLOOD GLUCOSE (NO CHG), POC (03/03/2018 7:54 AM) + +---------+ + + | Component | Value | Ref Range | Performed At | + +---------+ + + | BLOOD GLUCOSE, POC | 114 (H) | 70 - 99 [...] [facility] | [address] | [place], [place] | | | [place] [facility] | [facility] | [address] | | | TESTS | | | | + + + + + CAPILLARY BLOOD GLUCOSE (NO CHG), POC (03/03/2018 6:28 AM) + +-------+ + + | Component | Value | Ref Range | Performed At | + +-------+ + + | BLOOD GLUCOSE, POC | 92 | 70 - 99 mg/dL | [facility] | | | | | [facility] | | | | | CARE TESTS | + +-------+ + + + + + + + | Performing | Address | City/State/Zipcode | Phone Number | | Organization | | | | + + + + + | [facility] | [address] | [place], [place] | | | [place] [facility] | [address] | [address] | | | TESTS | | | | + + + + + CAPILLARY BLOOD GLUCOSE (NO CHG), POC (03/02/2018 9:17 PM) + +---------+ + + | Component | Value | Ref Range | Performed At | + +---------+ + + | BLOOD GLUCOSE, POC | 131 (H) | 70 - 99 mg/dL | [facility] | | | | | [place] [facility] | | | | | CARE TESTS | + +---------+ + + + + + + + | Performing | Address | City/State/Zipcode | Phone Number | | Organization | | | | + + + + + | [facility] | [address] | [place] | | | [facility] | [address] | [address] | | | TESTS | | | | + + + + + CAPILLARY BLOOD GLUCOSE (NO CHG), POC (03/02/2018 6:50 PM) + +-------+ + + | Component | Value | Ref Range | Performed At | + +-------+ + + | BLOOD GLUCOSE, POC | 87 | 70 - 99 mg/dL | [facility] | | | | | [facility] | | | | | CARE TESTS | + +-------+ + + + + + + + | Performing | Address | City/State/Zipcode | Phone Number | | Organization | | | | + + + + + | [facility] | [address] | [place], [place] | | | [place] [facility] | [address] | [address] | | | TESTS | | | | + + + + + CAPILLARY BLOOD GLUCOSE (NO CHG), POC (03/02/2018 3:46 PM) + +---------+ + + | Component | Value | Ref Range | Performed At | + +---------+ + + | BLOOD GLUCOSE, POC | 126 (H) | 70 - 99 [...] [facility] | [address] | [place] | | | [facility] | [address] | [address] | | | TESTS | | | | + + + + + CAPILLARY BLOOD GLUCOSE (NO CHG), POC (03/02/2018 2:36 PM) + +---------+ + + | Component | Value | Ref Range | Performed At | + +---------+ + + | BLOOD GLUCOSE, POC | 117 (H) | 70 - 99 mg/dL | [facility] | | | | | [facility] | | | | | CARE TESTS | + +---------+ + + + + + + + | Performing | Address | City/State/Zipcode | Phone Number | | Organization | | | | + + + + + | [facility] | [address] | [place], [place] | | | [place] [facility] | [address] | [address] | | | TESTS | | | | + + + + + CAPILLARY BLOOD GLUCOSE (NO CHG), POC (03/02/2018 1:33 PM) + +---------+ + + | Component | Value | Ref Range | Performed At | + +---------+ + + | BLOOD GLUCOSE, POC | 110 (H) | 70 - 99 [...] [facility] | [address] | [place], [place] | | | [place] [facility] | [address] | [address] | | | TESTS | | | | + + + + + CAPILLARY BLOOD GLUCOSE (NO CHG), POC (03/02/2018 11:36 AM) + +---------+ + + | Component | [...] [facility] | [address] | [place], [place] | | | [place] [facility] | [address] | [address] | | | TESTS | | | | + + + + + CAPILLARY BLOOD GLUCOSE (NO CHG), POC (03/02/2018 10:32 AM) + +---------+ + + | Component | Value | Ref Range | Performed At | + +---------+ + + | BLOOD GLUCOSE, POC | 120 (H) | 70 - 99 mg/dL | [facility] | | | | | [place] [facility] | | | | | CARE TESTS | + +---------+ + + + + + + + | Performing | Address | City/State/Zipcode | Phone Number | | Organization | | | | + + + + + | [facility] | [address] | [place], [place] | | | [facility] | [address] | [address] | | | TESTS | | | | + + + + + CAPILLARY BLOOD GLUCOSE (NO CHG), POC (03/02/2018 9:23 AM) + +---------+ + + | Component | Value | Ref Range | Performed At | + +---------+ + + | BLOOD GLUCOSE, POC | 118 (H) | 70 - 99 mg/dL | [facility] | | | | | [facility] | | | | | CARE TESTS | + +---------+ + + + + + + + | Performing | Address | City/State/Zipcode | Phone Number | | Organization | | | | + + + + + | [facility] | [address] | [place] | | | [place] [facility] | [address] | [address] | | | TESTS | | | | + + + + + CAPILLARY BLOOD GLUCOSE (NO CHG), POC (03/02/2018 8:36 AM) + +---------+ + + | Component | Value | Ref Range | Performed At | + +---------+ + + | BLOOD GLUCOSE, POC | 110 (H) | 70 - 99 mg/dL | [facility] | | | | | [place] [facility] | | | | | CARE TESTS | + +---------+ + + + + + + + | Performing | Address | City/State/Zipcode | Phone Number | | Organization | | | | + + + + + | [facility] | [address] | [place] | | | [facility] | [facility] | [address] | | | TESTS | | | | + + + + + CAPILLARY BLOOD GLUCOSE (NO CHG), POC (03/02/2018 7:35 AM) + +-------+ + + | Component | Value | Ref Range | Performed At | + +-------+ + + | BLOOD GLUCOSE, POC | 92 | 70 - 99 mg/dL | [facility] | | | | | [facility] | | | | [facility] TESTS | + +-------+ + + + + + + + | Performing | Address | City/State/Zipcode | Phone Number | | Organization | | | | + + + + + | [facility] | [address] | [place], [place] | | | [facility] | [address] | [address] | | | TESTS | | | | + + + + + CAPILLARY BLOOD GLUCOSE (NO CHG), POC (03/02/2018 6:33 AM) + +-------+ + + | Component | Value | Ref Range | Performed At | + +-------+ + + | BLOOD GLUCOSE, POC | 96 | 70 - 99 mg/dL | [facility] | | | | | [facility] | | | | [facility] TESTS | + +-------+ + + + + + + + | Performing | Address | City/State/Zipcode | Phone Number | | Organization | | | | + + + + + | [facility] | [address] | [place], [place] | | | [facility] | [address] | [address] | | | TESTS | | | | + + + + + CAPILLARY BLOOD GLUCOSE (NO CHG), POC (03/02/2018 5:28 AM) + +---------+ + + | Component | Value | Ref Range | Performed At | + +---------+ + + | BLOOD GLUCOSE, POC | 110 (H) | 70 - 99 mg/dL | [facility] | | | | | [facility] | | | | [facility] | + +---------+ + + + + + + + | Performing | Address | City/State/Zipcode | Phone Number | | Organization | | | | + + + + + | [facility] | [address] | [place], [place] | | | [facility] | [facility] | [address] | | | TESTS | | | | + + + + + CAPILLARY BLOOD GLUCOSE (NO CHG), POC (03/02/2018 4:36 AM) + +-------+ + + | Component | Value | Ref Range | Performed At | + +-------+ + + | BLOOD GLUCOSE, POC | 97 | 70 - 99 mg/dL | [facility] | | | | | [facility] | | | | | [facility] | + +-------+ + + + + + + + | Performing | Address | City/State/Zipcode | Phone Number | | Organization | | | | + + + + + | [facility] | [address] | [place], [place] | | | [facility] | [address] | [address] | | | TESTS | | | | + + + + + CAPILLARY BLOOD GLUCOSE (NO CHG), POC (03/02/2018 2:46 AM) + +---------+ + + | Component | Value | Ref Range | Performed At | + +---------+ + + | BLOOD GLUCOSE, POC | 107 (H) | 70 - 99 [...] [facility] | [address] | [place], [place] | | | [facility] | [address] | [address] | | | TESTS | | | | + + + + + CAPILLARY BLOOD GLUCOSE (NO CHG), POC (03/02/2018 12:32 AM) + +---------+ + + | Component | Value | Ref Range | Performed At | + +---------+ + + | BLOOD GLUCOSE, POC | 110 (H) | 70 - 99 [...] [facility] | [address] | [place], [place] | | | [facility] | [address] | [address] | | | TESTS | | | | + + + + + CAPILLARY BLOOD GLUCOSE (NO CHG), POC (03/01/2018 10:31 PM) + +---------+ + + | Component | Value | Ref Range | Performed At | + +---------+ + + | BLOOD GLUCOSE, POC | 124 (H) | 70 - 99 mg/dL | [facility] | | | | | [facility] | | | | | [facility] | + +---------+ + + + + + + + | Performing | Address | City/State/Zipcode | Phone Number | | Organization | | | | + + + + + | [facility] | [address] | [place] | | | [facility] | [address] | [phone] | | | TESTS | | | | + + + + + CAPILLARY BLOOD GLUCOSE (NO CHG), POC (03/01/2018 8:21 PM) + +---------+ + + | Component | Value | Ref Range | Performed At | + +---------+ + + | BLOOD GLUCOSE, POC | 125 (H) | 70 - 99 [...] [facility] | [address] | [place], [place] | | | [facility] | [facility] | [address] | | | TESTS | | | | + + + + + PROCEDURE NOTE (03/01/2018 6:55 PM)CAPILLARY BLOOD GLUCOSE (NO CHG), POC (03/01/2018 6:12 PM) + +---------+ + + | Component | Value | Ref Range | Performed At | + +---------+ + + | BLOOD GLUCOSE, POC | 127 (H) | 70 - 99 mg/dL | [facility] | | | | | [facility] | | | | | [facility] TESTS | + +---------+ + + + + + + + | Performing | Address | City/State/Zipcode | Phone Number | | Organization | | | | + + + + + | [facility] | [address] [facility] [address] | [place], [place] | | | [facility] | [address] | [phone] | | | TESTS | | | | + + + + + CAPILLARY BLOOD GLUCOSE (NO CHG), POC (03/01/2018 3:31 PM) + +---------+ + + | Component | Value | Ref Range | Performed At | + +---------+ + + | BLOOD GLUCOSE, POC | 108 (H) | 70 - 99 [...] [facility] | [address] | [place] | | | [facility] | [address] | [address] | | | TESTS | | | | + + + + + CAPILLARY BLOOD GLUCOSE (NO CHG), POC (03/01/2018 3:29 PM) + +-------+ + + | Component | Value | Ref Range | Performed At | + +-------+ + + | BLOOD GLUCOSE, POC | 74 | 70 - 99 mg/dL | [facility] | | | | | [facility] | | | | | [facility]S | + +-------+ + + + + + + + | Performing | Address | City/State/Zipcode | Phone Number | | Organization | | | | + + + + + | [facility] | [address] | [place], [place] | | | [facility] | [facility] | [address] | | | TESTS | | | | + + + + + CAPILLARY BLOOD GLUCOSE (NO CHG), POC (03/01/2018 2:30 PM) + +---------+ + + | Component | Value | Ref Range | Performed At | + +---------+ + + | BLOOD GLUCOSE, POC | 128 (H) | 70 - 99 [...] [facility] | [address] | [place], [place] | | | [facility] | [address] | [address] | | | TESTS | | | | + + + + + CAPILLARY BLOOD GLUCOSE (NO CHG), POC (03/01/2018 1:35 PM) + +---------+ + + | Component | Value | Ref Range | Performed At | + +---------+ + + | BLOOD GLUCOSE, POC | 150 (H) | 70 - 99 [...] [facility] | [address] | [place], [place] | | | [facility] | [facility] | [phone] | | | TESTS | | | | + + + + + CAPILLARY BLOOD GLUCOSE (NO CHG), POC (03/01/2018 12:16 PM) + +---------+ + + | Component | Value | Ref Range | Performed At | + +---------+ + + | BLOOD GLUCOSE, POC | 184 (H) | 70 - 99 mg/dL | [facility] | | | | | [facility] [facility] | | | | | [facility]ARE TESTS | + +---------+ + + + + + + + | Performing | Address | City/State/Zipcode | Phone Number | | Organization | | | | + + + + + | [facility] | [address] [facility] [address] | [place] | | | [facility] | [address] | [phone] | | | TESTS | | | | + + + + + EGD (ESOPHAGOGASTRODUODENOSCOPY) (03/01/2018 11:21 AM) + + + | Narrative | Performed At | + + + | Ion Castanon MD 03/01/2018 12:25 PM Date of Procedure: | | | 03/01/18 Primary Surgeon: Ion Castanon MD Co Surgeon or | | | records management assistant: Eldon Gonzalez MD, Chief Resident Alexx [...] | | | divided with 60 mm Tennille stapler with white load and the distal [...] created in each limb and a 60mm Tennille stapler | | | with white load was fired to create a [id number]-[id number] | | | jejunojejunostomy. The anastamosis was confirmed to be widely | | | patent and hemostatic. The common enterotomy was closed by | | | placing 2 stay sutures along the enterotomy for retraction and | | | firing an Tennille 60mm stapler with white load across the [...] was entered. The 60mm | | | Tennille stapler with blue load was placed and [...] the 60mm stapler. The | | | Tennille was then fired longitudinally towards the angle of His to | | | create the gastric pouch, leaving the gastrotomy from foreign body | | | removal, on the pouch. Dissection was performed retrogastric to | | | connect posterior and anterior dissection planes and ensure adequate | | | fundus exclusion. Additional fires of the Tennille stapler were | | | performed with [...] ooze were controlled with 5 mm clip neon sign maker. A 25mm Orvil | | | was [...] The jejunal enterotomy was closed with 60mm Tennille | | | stapler with a white [...] was present as my | | | records management assistant for the entire procedure, given the technically | | | challenging nature of this procedure. She assisted in all critical | | | steps of the procedure. Dr. Gonzalez was present for endoscopy at the | | | end of the procedure. Ion Castanon MD, FACS, [facility] | | | Bariatric Surgery | | + + + LAPAROSCOPIC GASTRIC BYPASS AND NISH-EN-Y GASTROENTEROSTOMY WITH NISH LIMB 150 CM OR LESS ( 03/01/2018 11:21 AM) + + + | Narrative | Performed At | + + + | Ion Castanon MD 03/01/2018 12:25 PM Date of Procedure: | | | 03/01/18 Primary Surgeon: Ion Castanon MD Co Surgeon or | | | records management assistant: Eldon Gonzalez MD, Chief Resident Alexx [...] | | | divided with 60 mm Tennille stapler with white load and the distal [...] created in each limb and a 60mm Tennille stapler | | | with white load was fired to create a [id number]-ydfn | | | jejunojejunostomy. The anastamosis was confirmed to be widely | | | patent and hemostatic. The common enterotomy was closed by | | | placing 2 stay sutures along the enterotomy for retraction and | | | firing an Tennille 60mm stapler with white load across the [...] was entered. The 60mm | | | Tennille stapler with blue load was placed and [...] the 60mm stapler. The | | | Tennille was then fired longitudinally towards the angle of His to | | | create the gastric pouch, leaving the gastrotomy from foreign body | | | removal, on the pouch. Dissection was performed retrogastric to | | | connect posterior and anterior dissection planes and ensure adequate | | | fundus exclusion. Additional fires of the Tennille stapler were | | | performed with [...] ooze were controlled with 5 mm clip neon sign maker. A 25mm Orvil | | | was [...] The jejunal enterotomy was closed with 60mm Tennille | | | stapler with a white [...] was present as my | | | records management assistant for the entire procedure, given the technically | | | challenging nature of this procedure. She assisted in all critical | | | steps of the procedure. Dr. Gonzalez was present for endoscopy at the | | | end of the procedure. Ion Castanon MD, FACS, [facility] | | | Bariatric Surgery | | + + + CAPILLARY BLOOD GLUCOSE (NO CHG), POC (03/01/2018 10:11 AM) + +---------+ + + | Component | Value | Ref Range | Performed At | + +---------+ + + | BLOOD GLUCOSE, POC | 161 (H) | 70 - 99 [...] [facility] | [address] | [place], [place] | | | [facility] | [address] | [phone] | | | TESTS | | | [...] + | | | + + + in this encounter Visit Diagnoses + + | Diagnosis | + + | Morbid obesity (HCC) | + + | Morbid obesity | + + Admitting Diagnoses + + | Diagnosis | + + | MORBID OBESITY | + + Administered Medications + +--------+ + +------+------+ | Medication Order | MAR | Action | Dose | Rate | Site | | | Action | Date | | | | + +--------+ + +------+------+ | acetaminophen (TYLENOL) tablet | Given | 03/03/2018 | 1,000 mg | | | | 1,000 mg 1,000 mg, oral, EVERY 6 | | 06:28 | | | | | HOURS NEEDED, Starting Tue | | PDT | | | | | 03/02/18 at 1400, Until 03/03/18 | | | | | | | at 1930, mild pain, fever, | | | | | | | multimodal pain control | | | | | | + +--------+ + +------+------+ +-------+ + +---+---+ | Given | 03/03/2018 | 1,000 mg | | | | | 12:12 | | | | | | PDT | | | | +-------+ + +---+---+ +---+---+ | | | +---+---+ + +-------+ +-------+---+---+ | aspirin EC tablet 81 mg 81 mg, | Given | 03/02/2018 | 81 mg | | | | oral, DAILY, First dose on Thu | | 08:40 | | | | | 03/02/18 at 0900, Until | | PDT | | | | | Discontinued | | | | | | + +-------+ +-------+---+---+ +-------+ +-------+---+---+ | Given | 03/03/2018 | 81 mg | | | | | 08:50 | | | | | | PDT | | | | +-------+ +-------+---+---+ +---+---+ | | | +---+---+ + +-------+ +-------+---+---+ | atenolol (TENORMIN) tablet 25 | Given | 03/02/2018 | 25 mg | | | | mg 25 mg, oral, TWICE DAILY, | | 08:40 | | | | | First dose on Thu03/01/18 at 2100, | | PDT | | | | | Until Discontinued | | | | | | + +-------+ +-------+---+---+ +-------+ +-------+---+---+ | Given | 03/02/2018 | 25 mg | | | | | 20:12 | | | | | | PDT | | | | +-------+ +-------+---+---+ | Given | 03/03/2018 | 25 mg | | | | | 08:50 | | | | | | PDT | | | | +-------+ +-------+---+---+ +---+---+ | | | +---+---+ + +-------+ +-------+---+ + | bupivacaine | Given | 03/01/2018 | 50 mL | | Surgical | | (MARCAINE,SENSORCAINE) 0.25 % | | 11:39 | | | Site | | (2.5 mg/mL) injection | | PDT | | | | | INTRAPROCEDURE PRN, Starting Thu | | | | | | | 03/01/18 at 1139, Until Thu03/01/18 | | | | | | | at 1209 | | | | | | + +-------+ +-------+---+ + + +---+ | | | + +---+ | dextrose 50 % in water IV 25 mL | | | 25 mL, intravenous, NEEDED, | | | Starting Tu03/02/18 at 1556, | | | Until Thu03/03/18 at 1930, CBG | | | less than 70 mg/dL if patient | | | unable to take PO, per Adult | | | Hypoglycemia Protocol | | + +---+ | | | + +---+ + +-------+ +-------+---+---------+ | enoxaparin (LOVENOX) injection | Given | 03/02/2018 | 40 mg | | Abdomen | | 40 mg 40 mg, subcutaneous, EVERY | | 08:42 | | | | | 12 HOURS, First dose on Mon | | PDT | | | | | 03/01/18 at 2100, Until | | | | | | | Discontinued | | | | | | + +-------+ +-------+---+---------+ +-------+ +-------+---+---------+ | Given | 03/02/2018 | 40 mg | | Abdomen | | | 20:12 | | | | | | PDT | | | | +-------+ +-------+---+---------+ | Given | 03/03/2018 | 40 mg | | Abdomen | | | 08:51 | | | | | | PDT | | | | +-------+ +-------+---+---------+ +---+---+ | | | +---+---+ + +-------+ +-------+---+---+ | FLUoxetine (PROZAC) capsule 60 | Given | 03/01/2018 | 60 mg | | | | mg 60 mg, oral, AT BEDTIME, | | 22:31 | | | | | First dose on 03/01/18 at 2200, | | PDT | | | | | Until Discontinued | | | | | | + +-------+ +-------+---+---+ +-------+ +-------+---+---+ | Given | 03/02/2018 | 60 mg | | | | | 22:28 | | | | | | PDT | | | | +-------+ +-------+---+---+ +---+---+ | | | +---+---+ + +-------+ +--------+---+---+ | gabapentin (NEURONTIN) liquid | Given | 03/02/2018 | 300 mg | | | | 300 mg 300 mg, oral, FOUR TIMES | | 17:41 | | | | | DAILY, First dose on Thu03/01/18 | | PDT | | | | | at 1800, Until Discontinued | | | | | | + +-------+ +--------+---+---+ +-------+ +--------+---+---+ | Given | 03/02/2018 | 300 mg | | | | | 20:12 | | | | | | PDT | | | | +-------+ +--------+---+---+ | Given | 03/03/2018 | 300 mg | | | | | 08:50 | | | | | | PDT [...] +--------+---+---+ | HYDROmorphone (DILAUDID) | Given | 03/02/2018 | 0.5 mg | | | | injection 0.5-1 mg 0.5-1 mg, | | 16:51 | | | | | intravenous, EVERY 2 HOURS | | PDT | | | | | NEEDED, Starting Thu03/02/18 at | | | | | | | 1630, Until Thu03/03/18 at 1930, | | | | | | | severe pain | | | | | | + +-------+ +--------+---+---+ +---+---+ | | | +---+---+ + +-------+ + +---+ + | insulin glargine (LANTUS) | Given | 03/03/2018 | 28 Units | | Left Arm | | injection 28 Units 28 Units, | | 10:03 | | | | | subcutaneous, EVERY MORNING, | | PDT | | | | | First [...] (LIDODERM) 5 % patch | Applied | 03/02/2018 | 1 patch | | Abdomen | | 1 patch 1 patch, transdermal, | Patch | 08:41 | | | | | EVERY 24 HOURS, First dose on e | | PDT | | | | | 03/02/18 at 0845, Until | | | | | | | Discontinued | | | | | | + + + +---------+---+---------+ + + +---------+---+---------+ | Applied Patch | 03/03/2018 | 1 patch | | Abdomen | | | 08:51 | | | | | | PDT | | | | + + +---------+---+---------+ +---+---+ | | | +---+---+ + +-------+ +--------+---+---+ | magnesium oxide (MAG-OX) tablet | Given | 03/01/2018 | 400 mg | | | | 400 mg 400 mg, oral, DAILY, | | 17:02 | | | | | First dose on Thu03/01/18 at 1400, | | PDT | | | | | Until Discontinued | | | | | | + +-------+ +--------+---+---+ +-------+ +--------+---+---+ | Given | 03/02/2018 | 400 mg | | | | | 08:40 | | | | | | PDT | | | | +-------+ +--------+---+---+ | Given | 03/03/2018 | 400 mg | | | | | 08:50 | | | | | | PDT | | | | +-------+ +--------+---+---+ +---+---+ | | | +---+---+ + +-------+ +---+---+---+ | nystatin (MYCOSTATIN) cream | Given | 03/01/2018 | | | | | topical, TWICE DAILY, First dose | | 17:02 | | | | | on Thu03/01/18 at 1630, Until | | PDT | | | | | Discontinued | | | | | | + +-------+ +---+---+---+ +---+---+ | | | +---+---+ + +-------+ +---+---+---+ | nystatin (MYCOSTATIN) powder | Given | 03/01/2018 | | | | | topical, TWICE DAILY, First dose | | 20:50 | | | | | on 03/01/18 at 1415, Until | | PDT | | | | | Discontinued | | | | | | + +-------+ +---+---+---+ +-------+ +---+---+---+ | Given | 03/02/2018 | | | | | | 08:42 | | | | | | PDT | | | | +-------+ +---+---+---+ | Given | 03/02/2018 | | | | | | 20:14 | | | | | | PDT | | | | +-------+ +---+---+---+ +---+---+ | | | +---+---+ + +-------+ +-------+---+---+ | OLANZapine (ZYPREXA) tablet 30 | Given | 03/01/2018 | 30 mg | | | | mg 30 mg, oral, AT BEDTIME, | | 22:31 | | | | | First dose on Thu03/01/18 at 2200, | | PDT | | | | | Until Discontinued | | | | | | + +-------+ +-------+---+---+ +-------+ +-------+---+---+ | Given | 03/02/2018 | 30 mg | | | | | 22:27 | | | | | | PDT | | | | +-------+ +-------+---+---+ +---+---+ | | | +---+---+ + +-------+ +-------+---+---+ | omeprazole (PRILOSEC) capsule | Given | 03/01/2018 | 20 mg | | | | 20 mg 20 mg, oral, DAILY, First | | 17:02 | | | | | dose on Thu03/01/18 at 1415, Until | | PDT | | | | | Discontinued | | | | | | + +-------+ +-------+---+---+ +-------+ +-------+---+---+ | Given | 03/02/2018 | 20 mg | | | | | 08:40 | | | | | | PDT | | | | +-------+ +-------+---+---+ | Given | 03/03/2018 | 20 mg | | | | | 08:50 | | | | | | PDT | | | | +-------+ +-------+---+---+ +---+---+ | | | +---+---+ + +-------+ +------+---+---+ | ondansetron (ZOFRAN) injection | Given | 03/02/2018 | 4 mg | | | | 4 mg 4 mg, intravenous, EVERY 12 | | 00:36 | | | | | HOURS NEEDED, Starting Mon | | PDT | | | | | 03/01/18 at 1730, Until Thu03/03/18 | | | | | | | at 1930, nausea/vomiting, first | | | | | | | line | | | | | | + +-------+ +------+---+---+ +---+---+ | | | +---+---+ + +-------+ +-------+---+---+ | oxyCODONE (immediate release) | Given | 03/03/2018 | 15 mg | | | | (ROXICODONE) liquid 5-15 mg 5-15 | | 06:19 | | | | | mg, oral, EVERY 3 HOURS | | PDT | | | | | NEEDED, Starting Thu03/01/18 at | | | | | | | 1343, Until Thu03/03/18 at 1930, | | | | | | | moderate pain | | | | | | + +-------+ +-------+---+---+ +-------+ +-------+---+---+ | Given | 03/03/2018 | 15 mg | | | | | 09:31 | | | | | | PDT | | | | +-------+ +-------+---+---+ | Given | 03/03/2018 | 15 mg | | | | | 12:31 | | | | | | PDT | | | | +-------+ +-------+---+---+ +---+---+ | | | +---+---+ + + + +---+---+---+ | probiotic yogurt (ZARIA'S | Given - | 03/02/2018 | | | | | YOGURT) oral, TWICE DAILY, First | Food | 08:42 | | | | | dose on Thu03/02/18 at 0900, | | PDT | | | | | Until Discontinued | | | | | | + + + +---+---+---+ + + +---+---+---+ | Given - Food | 03/02/2018 | | | | | | 20:11 | | | | | | PDT | | | | + + +---+---+---+ | Given - Food | 03/03/2018 | | | | | | 08:52 | | | | | | PDT | | | | + + +---+---+---+ +---+---+ | | | +---+---+ + +-------+ +-------+---+---+ | simethicone chew (MYLICON) | Given | 03/03/2018 | 80 mg | | | | tablet 80 mg 80 mg, oral, FOUR | | 00:15 | | | | | TIMES DAILY NEEDED, Starting | | PDT | | | | | 03/01/18 at 1203, Until Wed | | | | | | | 03/03/18 at 1930, bloating, | | | | | | | gas/bloating | | | | | | + +-------+ +-------+---+---+ +-------+ +-------+---+---+ | Given | 03/03/2018 | 80 mg | | | | | 03:40 | | | | | | PDT | | | | +-------+ +-------+---+---+ | Given | 03/03/2018 | 80 mg | | | | | 12:12 | | | | | | PDT | | | | +-------+ +-------+---+---+ +---+---+ | | | +---+---+ + +-------+ +-------+---+---+ | thyroid tablet 30 mg 30 mg, | Given | 03/02/2018 | 30 mg | | | | oral, DAILY, First dose on Thu | | 07:33 | | | | | 03/02/18 at 0700, Until | | PDT | | | | | Discontinued | | | | | | + +-------+ +-------+---+---+ +-------+ +-------+---+---+ | Given | 03/03/2018 | 30 mg | | | | | 06:20 | | | | | | PDT | | | | +-------+ +-------+---+---+ +---+---+ | | | +---+---+ + +-------+ +-------+---+---+ | topiramate (TOPAMAX) tablet 50 | Given | 03/02/2018 | 50 mg | | | | mg 50 mg, oral, TWICE DAILY, | | 08:40 | | | | | First dose on 03/01/18 at 1400, | | PDT | | | | | Until Discontinued | | | | | | + +-------+ +-------+---+---+ +-------+ +-------+---+---+ | Given | 03/02/2018 | 50 mg | | | | | 20:12 | | | | | | PDT | | | | +-------+ +-------+---+---+ | Given | 03/03/2018 | 50 mg | | | | | 08:50 | | | | | | PDT | | | | +-------+ +-------+---+---+ +---+---+ | | | +---+---+ + +-------+ +--------+---+---+ | traZODone (DESYREL) tablet 150 | Given | 03/01/2018 | 150 mg | | | | mg 150 mg, oral, AT BEDTIME, | | 22:31 | | | | | First dose on 03/01/18 at 2200, | | PDT | | | | | Until Discontinued | | | | | | + +-------+ +--------+---+---+ +-------+ +--------+---+---+ | Given | 03/02/2018 | 150 mg | | | | | 22:27 | | | | | | PDT | | | | +-------+ +--------+---+---+ +---+---+ | | | +---+---+ in this encounter
--- OUTSIDE RECORDS SUMMARY | ~2018-04-27 | XMS | Clinical Summary ---
Demographics + + + | Address | [address] | | | [place] [address] | + + + | Home Phone [...] Author + + + | Author | [facility] | + + + | Organization | [facility] | + + + [...] [place], [place] | | | | | [address] | | + + + + + | MAXIMILIANO FARRELL | ECON | Unknown | | + + + + + Care Team Providers + +------+ + | Care Call Taker Name | Role | Phone | + +------+ + | Fadi Goodrich DO | PP | | + +------+ + Source Comments [facility] and [facility] InPatient.[facility] Allergies + + + + + + [...] | | | | Activ | | [id number] | mouth two times | | | [...] | | | | | Morbid obesity ([facility]) | needed for | | | | [...] | | | | | | | ([facility]) | constipation. | | | | | [...] and over, adult ([facility]) | 02/02/2017 | + + + | Chronic diastolic heart failure ([facility]) | 02/02/2017 | + + [...] and over, adult ([facility]) | 06/16/20 | | | | 13 | 4 | + + + + | Diabetes mellitus ([facility]) | 06/16/20 | | | [...] | | | original.OR | | | [place] | | | & SCIENCE | | [...] | | Dylan Shereen | | | Gibsonia is a | | | 43 y.o. [...] | | by 3 | | | [id number] | | | 0 | | | | | | | | | | | | | | | | | | | | | | | | | | | Increase | | | by 1 | | | [id number] | | | | | | | | | | | | | | | | | | | | | | | | | | | | | | No | | | change in | | | insulin | | | [id number] | | | | | | | [...] | | | [id number]&CIT-D3- | | | [id number] | | | ORALTake 2 | | [...] | | | Chiobani | | | Citizen [place] | | | Yogurt are | | [...] | | , like | | | [place], have | | | Tylenol in | [...] | | office at | | | [phone] | | | 3. - After | | | hours, | | | weekends | | | and | | | holidays, | | | you may | | | call the | | | hospital | | | steam crane operator at | | | | | | [phone] | | | 1 and have | | | the carbon sequestration plant operator | | | Red | | | [...] | | by 3 | | | [id number] | | | 0 | | | | | | | | | | | | | | | | | | | | | | | | | | | Increase | | | by 1 | | | [id number] | | | | | | | | | | | | | | | | | | | | | | | | | | | | | | No | | | change in | | | insulin | | | [id number] | | | | | | | [...] | | [facility] | | | [place] at | | | [facility] 15 | | | Floor | | | [phone] | | | 6 | | | Comprehensi | | | v | | | 06/04/2018 | | | 10:35 AM | | | Randell | | | Tiny | | | Cardiology | | | Preventive | | | at [facility] | | | [phone] | | | 0 | | | Cardiology | | | | | | Discharging | | | Physician: | | | Aura | | | Petcu, | | | ACNPAttendi | | | ng | | | Physician: | | | Ion Colvin | | | MD Dannie | | | NKECHI Red | | | Surgery([phone] | | | [phone] | | | Pager# | | | [phone] | | | AM03/03/2018 | +---+ + [...] Rd | | | | | | [place], [place] | | | | | | [address] | | +--------+---------+ + + + | 05/27/ | Office | | Ronna Clarke, | | | 2017 | Visit | | ACNP [address] | | | | | | [place], [place] | | | | | | [address] | | | | | | [phone] | | | | | | | | +--------+---------+ + + + | 05/27/ | Office | | Demar Cueva, PhD | | | 2017 | Visit | | [address] [place] | | | | | | [place], [place] | | | | | | [address] | | | | | | [phone] | | | | | | | | +--------+---------+ + + + | 06/04/ | Office | | Randell Franks, | | | 2017 | Visit | | MD [address] | | | | | | [address] [place], [place] | | | | | | [address] | | | | | | [phone] | | | | | | | [...] - | | | | | | /[id number] | | [id number]: Qty: 1 on | | | | [...] - | | | | | | /[id number] | | [id number]: Qty: 1 on | | | | [...] | + +--------+ + + + | GA MNT RE-ASSESSMNT | Routin | 04/01/2018 | History of | | | X15MIN | e | 12:23 PM | Nish-en-Y gastric | | | | | PDT [...] | + +--------+ + + + | GA MNT RE-ASSESSMNT | Routin | 03/10/2018 | Severe Morbid | | | X15MIN | e | 2:36 PM | obesity ([facility]), BMI | | | | | PDT | 88 Type 2 diabetes | | | | | | mellitus without | | | | | | complication, with | | | | | | long-term current | | | | | | use of insulin ([facility]) | | | | | | S/P gastric bypass | | + +--------+ + + + | CAPILLARY BLOOD | Routin | 03/03/2018 | Morbid obesity | Results for this | | GLUCOSE (NO CHG), | e | 12:37 PM | with BMI of 70 and | procedure are in the | | POC | | PDT | over, adult ([facility]) | results section. | + +--------+ + + + | CAPILLARY BLOOD | Routin | 03/03/2018 | Morbid obesity | Results for this | | GLUCOSE (NO CHG), | e | 7:54 AM | with BMI of 70 and | procedure are in the | | POC | | PDT | over, adult ([facility]) | results section. | + +--------+ + + + | CAPILLARY BLOOD | Routin | 03/03/2018 | Morbid obesity | Results for this | | GLUCOSE (NO CHG), | e | 6:28 AM | with BMI of 70 and | procedure are in the | | POC | | PDT | over, adult ([facility]) | results section. | + +--------+ + + + | CAPILLARY BLOOD | Routin | 03/02/2018 | Morbid obesity | Results for this | | GLUCOSE (NO CHG), | e | 9:17 PM | with BMI of 70 and | procedure are in the | | POC | | PDT | over, adult ([facility]) | results section. | + +--------+ + + + | CAPILLARY BLOOD | Routin | 03/02/2018 | Morbid obesity | Results for this | | GLUCOSE (NO CHG), | e | 6:50 PM | with BMI of 70 and | procedure are in the | | POC | | PDT | over, adult ([facility]) | results section. | + +--------+ + + + | CAPILLARY BLOOD | Routin | 03/02/2018 | Morbid obesity | Results for this | | GLUCOSE (NO CHG), | e | 3:46 PM | with BMI of 70 and | procedure are in the | | POC | | PDT | over, adult ([facility]) | results section. | + +--------+ + + + | CAPILLARY BLOOD | Routin | 03/02/2018 | Morbid obesity | Results for this | | GLUCOSE (NO CHG), | e | 2:36 PM | with BMI of 70 and | procedure are in the | | POC | | PDT | over, adult ([facility]) | results section. | + +--------+ + + + | CAPILLARY BLOOD | Routin | 03/02/2018 | Morbid obesity | Results for this | | GLUCOSE (NO CHG), | e | 1:33 PM | with BMI of 70 and | procedure are in the | | POC | | PDT | over, adult ([facility]) | results section. | + +--------+ + + + | CAPILLARY BLOOD | Routin | 03/02/2018 | Morbid obesity | Results for this | | GLUCOSE (NO CHG), | e | 11:36 AM | with BMI of 70 and | procedure are in the | | POC | | PDT | over, adult ([facility]) | results section. | + +--------+ + + + | CAPILLARY BLOOD | Routin | 03/02/2018 | Morbid obesity | Results for this | | GLUCOSE (NO CHG), | e | 10:32 AM | with BMI of 70 and | procedure are in the | | POC | | PDT | over, adult ([facility]) | results section. | + +--------+ + + + | CAPILLARY BLOOD | Routin | 03/02/2018 | Morbid obesity | Results for this | | GLUCOSE (NO CHG), | e | 9:23 AM | with BMI of 70 and | procedure are in the | | POC | | PDT | over, adult ([facility]) | results section. | + +--------+ + + + | CAPILLARY BLOOD | Routin | 03/02/2018 | Morbid obesity | Results for this | | GLUCOSE (NO CHG), | e | 8:36 AM | with BMI of 70 and | procedure are in the | | POC | | PDT | over, adult ([facility]) | results section. | + +--------+ + + + | CAPILLARY BLOOD | Routin | 03/02/2018 | Morbid obesity | Results for this | | GLUCOSE (NO CHG), | e | 7:35 AM | with BMI of 70 and | procedure are in the | | POC | | PDT | over, adult ([facility]) | results section. | + +--------+ + + + | CAPILLARY BLOOD | Routin | 03/02/2018 | Morbid obesity | Results for this | | GLUCOSE (NO CHG), | e | 6:33 AM | with BMI of 70 and | procedure are in the | | POC | | PDT | over, adult ([facility]) | results section. | + +--------+ + + + | CAPILLARY BLOOD | Routin | 03/02/2018 | Morbid obesity | Results for this | | GLUCOSE (NO CHG), | e | 5:28 AM | with BMI of 70 and | procedure are in the | | POC | | PDT | over, adult ([facility]) | results section. | + +--------+ + + + | CAPILLARY BLOOD | Routin | 03/02/2018 | Morbid obesity | Results for this | | GLUCOSE (NO CHG), | e | 4:36 AM | with BMI of 70 and | procedure are in the | | POC | | PDT | over, adult ([facility]) | results section. | + +--------+ + + + | CAPILLARY BLOOD | Routin | 03/02/2018 | Morbid obesity | Results for this | | GLUCOSE (NO CHG), | e | 2:46 AM | with BMI of 70 and | procedure are in the | | POC | | PDT | over, adult ([facility]) | results section. | + +--------+ + + + | CAPILLARY BLOOD | Routin | 03/02/2018 | Morbid obesity | Results for this | | GLUCOSE (NO CHG), | e | 12:32 AM | with BMI of 70 and | procedure are in the | | POC | | PDT | over, adult ([facility]) | results section. | + +--------+ + + + | CAPILLARY BLOOD | Routin | 03/01/2018 | Morbid obesity | Results for this | | GLUCOSE (NO CHG), | e | 10:31 PM | with BMI of 70 and | procedure are in the | | POC | | PDT | over, adult ([facility]) | results section. | + +--------+ + + + | CAPILLARY BLOOD | Routin | 03/01/2018 | Morbid obesity | Results for this | | GLUCOSE (NO CHG), | e | 8:21 PM | with BMI of 70 and | procedure are in the | | POC | | PDT | over, adult ([facility]) | results section. | + [...] POC | | PDT | over, adult ([facility]) | results section. | + +--------+ + + + | CAPILLARY BLOOD | Routin | 03/01/2018 | Morbid obesity | Results for this | | GLUCOSE (NO CHG), | e | 3:31 PM | with BMI of 70 and | procedure are in the | | POC | | PDT | over, adult ([facility]) | results section. | + +--------+ + + + | CAPILLARY BLOOD | Routin | 03/01/2018 | Morbid obesity | Results for this | | GLUCOSE (NO CHG), | e | 3:29 PM | with BMI of 70 and | procedure are in the | | POC | | PDT | over, adult ([facility]) | results section. | + +--------+ + + + | CAPILLARY BLOOD | Routin | 03/01/2018 | Morbid obesity | Results for this | | GLUCOSE (NO CHG), | e | 2:30 PM | with BMI of 70 and | procedure are in the | | POC | | PDT | over, adult ([facility]) | results section. | + +--------+ + + + | CAPILLARY BLOOD | Routin | 03/01/2018 | Morbid obesity | Results for this | | GLUCOSE (NO CHG), | e | 1:35 PM | with BMI of 70 and | procedure are in the | | POC | | PDT | over, adult ([facility]) | results section. | + [...] POC | | PDT | over, adult ([facility]) | results section. | + [...] GASTRIC | ve | 8:30 AM | ([facility]) | | | BYPASS | [...] | + +--------+ + + + | GA COLLECTION VENOUS | Routin | 02/22/2018 | [...] + + + + | [facility] - | [address] | [place] [address] | | | [place] | | | | + + + [...] NKECHI AMES | [address] | [place], [place] | | | [place] [facility] | [address] | [address] | | | TESTS | | | [...] Co Surgeon or | | | assistant professor of spanish: Eldon Gnozalez MD, Chief Resident Alexx | | | [...] | | | divided with 60 mm Peterson stapler with white load and the distal [...] created in each limb and a 60mm Peterson stapler | | | with white load was fired to create a [id number] | | | jejunojejunostomy. The anastamosis was confirmed to be widely | | | patent and hemostatic. The common enterotomy was closed by | | | placing 2 stay sutures along the enterotomy for retraction and | | | firing an Peterson 60mm stapler with white load across the [...] was entered. The 60mm | | | Peterson stapler with blue load was placed and [...] the 60mm stapler. The | | | Peterson was then fired longitudinally towards the angle of His to | | | create the gastric pouch, leaving the gastrotomy from foreign body | | | removal, on the pouch. Dissection was performed retrogastric to | | | connect posterior and anterior dissection planes and ensure adequate | | | fundus exclusion. Additional fires of the Peterson stapler were | | | performed with [...] ooze were controlled with 5 mm clip handbook writer. A 25mm Orvil | | | was [...] The jejunal enterotomy was closed with 60mm Peterson | | | stapler with a white [...] was present as my | | | assistant professor of spanish for the entire procedure, given the technically | | | challenging nature of this procedure. She assisted in all critical | | | steps of the procedure. Dr. Gonzalez was present for endoscopy at the | | | end of the procedure. Ion Pandey MD, FACS, [facility] | | | Bariatric Surgery | | + + + EGD (ESOPHAGOGASTRODUODENOSCOPY) (03/01/2018 11:21 AM) + + + | Narrative | Performed At | + + + | Ion Pandey MD 03/01/2018 12:25 PM Date of Procedure: | | | 03/01/18 Primary Surgeon: Ion Pandey MD Co Surgeon or | | | assistant professor of spanish: Eldon Gonzalez MD, Chief Resident Alexx | [...] | | | divided with 60 mm Peterson stapler with white load and the distal [...] created in each limb and a 60mm Peterson stapler | | | with white load was fired to create a [id number] | | | jejunojejunostomy. The anastamosis was confirmed to be widely | | | patent and hemostatic. The common enterotomy was closed by | | | placing 2 stay sutures along the enterotomy for retraction and | | | firing an Peterson 60mm stapler with white load across the [...] was entered. The 60mm | | | Peterson stapler with blue load was placed and [...] the 60mm stapler. The | | | Peterson was then fired longitudinally towards the angle of His to | | | create the gastric pouch, leaving the gastrotomy from foreign body | | | removal, on the pouch. Dissection was performed retrogastric to | | | connect posterior and anterior dissection planes and ensure adequate | | | fundus exclusion. Additional fires of the Peterson stapler were | | | performed with [...] ooze were controlled with 5 mm clip handbook writer. A 25mm Orvil | | | was [...] The jejunal enterotomy was closed with 60mm Peterson | | | stapler with a white [...] was present as my | | | assistant professor of spanish for the entire procedure, given the technically | | | challenging nature of this procedure. She assisted in all critical | | | steps of the procedure. Dr. Gonzalez was present for endoscopy at the | | | end of the procedure. Ion Pandey MD, FACS, [facility] | | | Bariatric Surgery | | [...] | 3.50 - 10.80 K/cu mm | [facility] | | | | | SERVICES, CORE | + + + + + | RED CELL COUNT | 5.12 | 4.00 - 5.20 M/cu mm | [facility] | | | | | SERVICES, CORE | + + + + + | HEMOGLOBIN | 14.3 | 12.0 - 16.0 g/dL | [facility] | | | | | SERVICES, CORE | + + + + + | HEMATOCRIT | 44.5 | 36.0 - 46.0 % | [facility] | | | | | SERVICES, CORE | + + + + + | MCV | 86.9 | 80.0 - 100.0 fL | [facility] | | | | | SERVICES, [...] | 150 - 400 K/cu mm | [facility] | | | | | SERVICES, [...] 0.00 - 0.10 K/cu mm | [facility] | | | | | SERVICES, [...] + + + + + | [facility] | [address] | [place] [address] | | | SERVICES, CORE | [address] [...] >60 mL/min | [facility] | | [facility] | | | SERVICES, CORE | + +---------+ + + | EGFR NON | >60 | >60 mL/min | [facility] | | -[facility] | | | SERVICES, CORE | + [...] Interpretive Information: <60 mL/min/1.73 sq | SERVICES, [facility] [place] | | m Chronic Kidney Disease <15 [...] | + + + + + | [facility] | [address] | [place] [address] | | | SERVICES, CORE | [address] | | | + + + + + ANTIBODY SCREEN (02/22/2018 1:25 PM) + + + + + | Component | Value | Ref Range | Performed At | + + + + + | Antibody Screen | Negative | | [facility] | | | | | SERVICES, [...] [facility] | [address] | [place] [address] | | | SERVICES, | [address] [...] [facility] | [address] | [place] [address] | | | SERVICES, | [address] | | | | TRANSFUSION MEDICINE | | | | + + + + + HEMOGLOBIN A1C, BLOOD (02/22/2018 1:25 PM) + + + + + | Component | Value | Ref Range | Performed At | + + + + + | HEMOGLOBIN A1C | 7.1 (H)Comment: Hgb A1C | <5.7 % | [facility] | | | Interpretive | | [...] [facility] | [address] | [place] [address] | | | SERVICES, SPECIAL | [address] [...] [facility] | [address] | [place], [place] | | | CARDIOLOGY | [address] | [address] | | + + + + + from Last 3 Months Insurance + +--------+ +--------+-------+---------+ | Payer | Benefi | Subscriber | Type | Phone | Address | | | t Plan | ID | | | | | | / | | | | | | | Group | | | | | + +--------+ +--------+-------+---------+ | [employer] | [employer] | xxxxxxxx | Medica | | | [...] | [email or web address] | | | [id number] | [id number] | + +--------+ +--------+ + +
--- OUTSIDE RECORDS SUMMARY | ~2018-04-27 | XMS | Encounter Summary ---
Demographics + + + | Address | [address] | | | [place] [address] | + + + | Home Phone [...] + | KENNY BERRY | ECON | [address] | | | | | [place], [place] | | | | | [address] | | + + + + + | MAXIMILIANO FARRELL | ECON | Unknown | | + + + + + Care Team Providers + +------+ + | Care Torch Shearer Name | Role | Phone | + [...] NISH EN | | 2018 | | [facility] | MD [address] | Y GASTRIC BYPASS | | | | Admitting Desk | [place], [place] | | | | | Located on the | [address] | | | | | floor [address] [facility] | [phone] | | | | | [facility] | | | | | | [place], [place] | | | | | | [address] | | | +--------+---------+ + + + [...] note may be different from jennifer mendiola. [facility] [place] RED SURGERY INPATIENT DISCHARGE SUMMARY Author: KAIN [...] to a bariatric full liquid diets. [facility] diet[facility] was consulted and they discussed her [...] at minimum. 5. Follow with PCP for Supportive Employment Case Manager within 1 - 2 weeks of discharge [...] mg by mouth two times daily. CALCIUM CRB&[id number]-[id number]-GENIS ORAL Take 2 tablets by mouth two [...] yogurt or kefir. Zaria's Yogurt or Kefir, [employer] Yogurt, and [employer] i Frisian Yogurt are common brands with beneficial probiotics. [...] are available over the counter at most [employer] stores. Nausea/Vomiting/Difficulty Swallowing Nausea/Vomiting/Difficulty swallowing: Could be [...] hours per your instructions. Some medications, like [place], have Tylenol in it. Make sure you [...] (PCP) as this clinic does not provide [facility] chronic pain management services. When to Call [...] hours by calling the surgery office at [phone]. - After hours, weekends and holidays, you may call the hospital tool room gear machine operator at [phone] an d have the fabrication manager Red Surgery Team paged. OTHER DISCHARGE ORDERS [...] at minimum. 5. Follow with PCP for Supportive Employment Case Manager within 1 - 2 weeks of discharge [...] Department Dept Phone Center 03/10/2018 1:30 PM [facility] at [facility] 6th Floor [phone] FO OD AND NUT 03/10/2018 3:05 PM Ronna Clarke [facility] at [facility] 6th Floor [phone] [facility] 04/01/2018 10:30 AM [facility] at [address] Floor [phone] FO OD AND NUT 04/01/2018 11:00 AM Ion Castanon Digestive [facility] at [address] Floor [phone] [facility] 05/27/2018 2:30 PM [facility] at [address] Floor [phone] FO OD AND NUT 05/27/2018 3:05 PM Ronna Clarke [facility] at [address] Floor [phone] [facility] 05/27/2018 4:30 PM Demar C[facility] at [facility] 15th Floor [phone] Comprehensiv 06/04/2018 10:35 AM Randell Franks Cardiology Preventive at [facility] [phone] Cardiology Discharging Physician: KAIN Agee Attending Physician: Ion Castanon MD [facility] Red Surgery Pager# [phone] 9:50 AM 03/03/2018 in this encounter Medications [...] by | | | | | | [id number]-GEN | mouth two times | | | [...] for | | | | | | ([facility]) | constipation. | | | | [...] date of discharge 03/03/18 PARTHA Calixto MS3 [facility] Demarcus Alas MD - [...] for care ride home (pt lives in [place]) Demarcus Alas M.D. General Surgery Resident PGY-1 Pager: [phone] Ion Castanon MD - 03/02/2018 10:00 AM [...] | 2017 | Visit | | RD [address] [facility] | | | | | | [address] | | | | | | [place], [place] | | | | | | [address] | | +--------+---------+ + + + | 05/27/ | Office | Surgery | Ronna Clarke, | | | 2017 | Visit | | ACNP [address] | | | | | | Ave [facility] [place] | | | | | | [address] | | | | | | [phone] | | | | | | | | +--------+---------+ + + + | 05/27/ | Office | Pain Management | Demar Cueva, PhD | | | 2017 | Visit | | [address] | | | | | | [place], [place] | | | | | | [address] | | | | | | [phone] | | | | | | | | +--------+---------+ + + + | 06/04/ | Office | Cardiology | Randell Franks, | | | 2017 | Visit | | MD [address] | | | | | | [address] [place], [place] | | | | | | [address] | | | | | | [phone] | | | | | | | [...] POC | | PDT | over, adult ([facility]) | results section. | + +--------+ + + + | CAPILLARY BLOOD | Routin | 03/03/2018 | Morbid obesity | Results for this | | GLUCOSE (NO CHG), | e | 7:54 AM | with BMI of 70 and | procedure are in the | | POC | | PDT | over, adult ([facility]) | results section. | + +--------+ + + + | CAPILLARY BLOOD | Routin | 03/03/2018 | Morbid obesity | Results for this | | GLUCOSE (NO CHG), | e | 6:28 AM | with BMI of 70 and | procedure are in the | | POC | | PDT | over, adult ([facility]) | results section. | + +--------+ + + + | CAPILLARY BLOOD | Routin | 03/02/2018 | Morbid obesity | Results for this | | GLUCOSE (NO CHG), | e | 9:17 PM | with BMI of 70 and | procedure are in the | | POC | | PDT | over, adult ([facility]) | results section. | + +--------+ + + + | CAPILLARY BLOOD | Routin | 03/02/2018 | Morbid obesity | Results for this | | GLUCOSE (NO CHG), | e | 6:50 PM | with BMI of 70 and | procedure are in the | | POC | | PDT | over, adult ([facility]) | results section. | + +--------+ + + + | CAPILLARY BLOOD | Routin | 03/02/2018 | Morbid obesity | Results for this | | GLUCOSE (NO CHG), | e | 3:46 PM | with BMI of 70 and | procedure are in the | | POC | | PDT | over, adult ([facility]) | results section. | + +--------+ + + + | CAPILLARY BLOOD | Routin | 03/02/2018 | Morbid obesity | Results for this | | GLUCOSE (NO CHG), | e | 2:36 PM | with BMI of 70 and | procedure are in the | | POC | | PDT | over, adult ([facility]) | results section. | + +--------+ + + + | CAPILLARY BLOOD | Routin | 03/02/2018 | Morbid obesity | Results for this | | GLUCOSE (NO CHG), | e | 1:33 PM | with BMI of 70 and | procedure are in the | | POC | | PDT | over, adult ([facility]) | results section. | + +--------+ + + + | CAPILLARY BLOOD | Routin | 03/02/2018 | Morbid obesity | Results for this | | GLUCOSE (NO CHG), | e | 11:36 AM | with BMI of 70 and | procedure are in the | | POC | | PDT | over, adult ([facility]) | results section. | + +--------+ + + + | CAPILLARY BLOOD | Routin | 03/02/2018 | Morbid obesity | Results for this | | GLUCOSE (NO CHG), | e | 10:32 AM | with BMI of 70 and | procedure are in the | | POC | | PDT | over, adult ([facility]) | results section. | + +--------+ + + + | CAPILLARY BLOOD | Routin | 03/02/2018 | Morbid obesity | Results for this | | GLUCOSE (NO CHG), | e | 9:23 AM | with BMI of 70 and | procedure are in the | | POC | | PDT | over, adult ([facility]) | results section. | + +--------+ + + + | CAPILLARY BLOOD | Routin | 03/02/2018 | Morbid obesity | Results for this | | GLUCOSE (NO CHG), | e | 8:36 AM | with BMI of 70 and | procedure are in the | | POC | | PDT | over, adult ([facility]) | results section. | + +--------+ + + + | CAPILLARY BLOOD | Routin | 03/02/2018 | Morbid obesity | Results for this | | GLUCOSE (NO CHG), | e | 7:35 AM | with BMI of 70 and | procedure are in the | | POC | | PDT | over, adult ([facility]) | results section. | + +--------+ + + + | CAPILLARY BLOOD | Routin | 03/02/2018 | Morbid obesity | Results for this | | GLUCOSE (NO CHG), | e | 6:33 AM | with BMI of 70 and | procedure are in the | | POC | | PDT | over, adult ([facility]) | results section. | + +--------+ + + + | CAPILLARY BLOOD | Routin | 03/02/2018 | Morbid obesity | Results for this | | GLUCOSE (NO CHG), | e | 5:28 AM | with BMI of 70 and | procedure are in the | | POC | | PDT | over, adult ([facility]) | results section. | + +--------+ + + + | CAPILLARY BLOOD | Routin | 03/02/2018 | Morbid obesity | Results for this | | GLUCOSE (NO CHG), | e | 4:36 AM | with BMI of 70 and | procedure are in the | | POC | | PDT | over, adult ([facility]) | results section. | + +--------+ + + + | CAPILLARY BLOOD | Routin | 03/02/2018 | Morbid obesity | Results for this | | GLUCOSE (NO CHG), | e | 2:46 AM | with BMI of 70 and | procedure are in the | | POC | | PDT | over, adult ([facility]) | results section. | + +--------+ + + + | CAPILLARY BLOOD | Routin | 03/02/2018 | Morbid obesity | Results for this | | GLUCOSE (NO CHG), | e | 12:32 AM | with BMI of 70 and | procedure are in the | | POC | | PDT | over, adult ([facility]) | results section. | + +--------+ + + + | CAPILLARY BLOOD | Routin | 03/01/2018 | Morbid obesity | Results for this | | GLUCOSE (NO CHG), | e | 10:31 PM | with BMI of 70 and | procedure are in the | | POC | | PDT | over, adult ([facility]) | results section. | + +--------+ + + + | CAPILLARY BLOOD | Routin | 03/01/2018 | Morbid obesity | Results for this | | GLUCOSE (NO CHG), | e | 8:21 PM | with BMI of 70 and | procedure are in the | | POC | | PDT | over, adult ([facility]) | results section. | + +--------+ [...] POC | | PDT | over, adult ([facility]) | results section. | + +--------+ + + + | CAPILLARY BLOOD | Routin | 03/01/2018 | Morbid obesity | Results for this | | GLUCOSE (NO CHG), | e | 3:31 PM | with BMI of 70 and | procedure are in the | | POC | | PDT | over, adult ([facility]) | results section. | + +--------+ + + + | CAPILLARY BLOOD | Routin | 03/01/2018 | Morbid obesity | Results for this | | GLUCOSE (NO CHG), | e | 3:29 PM | with BMI of 70 and | procedure are in the | | POC | | PDT | over, adult ([facility]) | results section. | + +--------+ + + + | CAPILLARY BLOOD | Routin | 03/01/2018 | Morbid obesity | Results for this | | GLUCOSE (NO CHG), | e | 2:30 PM | with BMI of 70 and | procedure are in the | | POC | | PDT | over, adult ([facility]) | results section. | + +--------+ + + + | CAPILLARY BLOOD | Routin | 03/01/2018 | Morbid obesity | Results for this | | GLUCOSE (NO CHG), | e | 1:35 PM | with BMI of 70 and | procedure are in the | | POC | | PDT | over, adult ([facility]) | results section. | + +--------+ + + + | CAPILLARY BLOOD | Routin | 03/01/2018 | Morbid obesity | Results for this | | GLUCOSE (NO CHG), | e | 12:16 PM | with BMI of 70 and | procedure are in the | | POC | | PDT | over, adult ([facility]) | results section. | + +--------+ [...] POC | | PDT | over, adult ([facility]) | results section. | + +--------+ + + + | LAPAROSCOPIC | Electi | 03/01/2018 | Morbid obesity | | | NISH-EN-Y GASTRIC | ve | 8:30 AM | ([facility]) | | | BYPASS | Surgic [...] AMES | [address] | [place], [place] | | | JUSTINE DAWN OF JAKY | [address] | [address] | | | TESTS | | | [...] AMES | [address] | [place], [place] | | | [facility] POINT OF CARE | [facility] | [address] | | | TESTS | | | [...] MARKAMILLA | [address] | [place], [place] | | | [place] POINT OF CARE | [address] | [address] | | | TESTS | | | [...] AMES | [address] | [place], [place] | | | JUSTINE DAWN OF CARE | [address] | [address] | | | TESTS | | | [...] NKECHI AMES | [address] | [place], [place] | | | [place] POINT OF CARE | [address] | [address] | | | TESTS | | | [...] AMES | [address] | [place], [place] | | | JUSTINE DAWN OF [facility] | [address] | [address] | | | TESTS | | | [...] NKECHI AMES | [address] | [place], [place] | | | [facility] POINT OF CARE | [address] | [address] | | | TESTS | | | [...] KWAKU | [address] | [place], [place] | | | [place] POINT OF CARE | [address] | [address] | | | TESTS | | | [...] AMES | [address] | [place], [place] | | | [facility] POINT OF CARE | [address] | [address] | | | TESTS | | | [...] | + + + + + | OHORNI AMES | [address] | [place], [place] | | | JUSTINE DAWN OF CARE | [address] | [address] | | | TESTS | | | [...] AMES | [address] | [place], [place] | | | [place] POINT OF [facility] | [address] | [address] | | | TESTS | | | [...] + + + | NKECHI AMES | [address] | [place], [place] | | | JUSTINE DAWN OF CARE | [facility] | [address] | | | TESTS | | | [...] KWAKU | [address] | [place], [place] | | | [facility] POINT OF CARE | [address] | [address] | | | TESTS | | | [...] MARQUAM | [address] | [place], [place] | | | [facility] POINT OF CARE | [address] | [address] | | | TESTS | | | [...] NKECHI AMES | [address] | [place], [place] | | | JUSTINE DAWN OF CARE | [facility] | [address] | | | TESTS | | | [...] - MARQUAM | [address] | [place], [place] | | | [place] POINT OF CARE | [address] | [address] | | | TESTS | | | [...] AMES | [address] | [place], [place] | | | JUSTINE DAWN OF [facility] | [address] | [address] | | | TESTS | | | [...] AMES | [address] | [place], [place] | | | [place] POINT OF CARE | [address] | [address] | | | TESTS | | | [...] MARQUAM | [address] | [place] | | | [facility] POINT OF CARE | [address] | [address] | | | TESTS | | | [...] AMES | [address] | [place], [place] | | | JUSTINE DAWN OF CARE | [facility] | [address] | | | TESTS | | | [...] + + | NKECHI AMES | [address] [facility] [address] | [place], [place] | | | [place] POINT OF CARE | [address] | [address] | | | TESTS | | | [...] AMES | [address] | [place], [place] | | | [facility] POINT OF CARE | [address] | [address] | | | TESTS | | | [...] AMES | [address] | [place], [place] | | | [facility] POINT OF CARE | [facility] | [address] | | | TESTS | | | [...] KWAKU | [address] | [place], [place] | | | JUSTINE DAWN OF CARE | [address] | [address] | | | TESTS | | | [...] AMES | [address] | [place], [place] | | | JUSTINE DAWN OF CARE | [facility] | [address] | | | TESTS | | | [...] + + | NKECHI AMES | [address] [facility] [address] | [place], [place] | | | L[place] [facility] | [address] | [address] | | | TESTS | | | | + + + + + EGD (ESOPHAGOGASTRODUODENOSCOPY) (03/01/2018 11:21 AM) + + + | Narrative | Performed At | + + + | Ion Castanon MD 03/01/2018 12:25 PM Date of Procedure: | | | 03/01/18 Primary Surgeon: Ion Castanon MD Co Surgeon or | | | care team assistant: Eldon Gonzalez MD, Chief Resident Alexx [...] | | | divided with 60 mm Rifton stapler with white load and the distal [...] created in each limb and a 60mm Rifton stapler | | | with white load was fired to create a blyq-rf-yfsu | | | jejunojejunostomy. The anastamosis was confirmed to be widely | | | patent and hemostatic. The common enterotomy was closed by | | | placing 2 stay sutures along the enterotomy for retraction and | | | firing an Rifton 60mm stapler with white load across the [...] was entered. The 60mm | | | Rifton stapler with blue load was placed and [...] the 60mm stapler. The | | | Rifton was then fired longitudinally towards the angle of His to | | | create the gastric pouch, leaving the gastrotomy from foreign body | | | removal, on the pouch. Dissection was performed retrogastric to | | | connect posterior and anterior dissection planes and ensure adequate | | | fundus exclusion. Additional fires of the Rifton stapler were | | | performed with [...] ooze were controlled with 5 mm clip tobacco stripping machine operator. A 25mm Orvil | | | was [...] The jejunal enterotomy was closed with 60mm Rifton | | | stapler with a white [...] was present as my | | | care team assistant for the entire procedure, given the [...] MD Co Surgeon or | | | care team assistant: Eldon Gonzalez MD, Chief Resident Alexx [...] | | | divided with 60 mm Rifton stapler with white load and the distal [...] created in each limb and a 60mm Rifton stapler | | | with white load was fired to create a oiri-ei-hzij | | | jejunojejunostomy. The anastamosis was confirmed to be widely | | | patent and hemostatic. The common enterotomy was closed by | | | placing 2 stay sutures along the enterotomy for retraction and | | | firing an Rifton 60mm stapler with white load across the [...] was entered. The 60mm | | | Rifton stapler with blue load was placed and [...] the 60mm stapler. The | | | Rifton was then fired longitudinally towards the angle of His to | | | create the gastric pouch, leaving the gastrotomy from foreign body | | | removal, on the pouch. Dissection was performed retrogastric to | | | connect posterior and anterior dissection planes and ensure adequate | | | fundus exclusion. Additional fires of the Rifton stapler were | | | performed with [...] ooze were controlled with 5 mm clip tobacco stripping machine operator. A 25mm Orvil | | | was [...] The jejunal enterotomy was closed with 60mm Rifton | | | stapler with a white [...] was present as my | | | care team assistant for the entire procedure, given the [...] NKECHI AMES | [address] | [place], [place] | | | JUSTINE DAWN OF [facility] | [address] | [address] | | | TESTS | | | [...]
--- OUTSIDE RECORDS SUMMARY | ~2018-04-27 | XMS | Encounter Summary ---
Demographics + + + | Address | [address] | | | [place] [address] | + + + | Home Phone | | + + + | Preferred Language | Unknown | + + + | Marital Status | | + + + | Presybeterian Affiliation | Unknown | + + + | Race | Unknown | + + + | Ethnic Group | Unknown | + + + Author + + + | Author | [facility] | + + + | Organization | [facility] | + + + | Address [...] Providers + +------+ + | Care Ramp Jockey Name | Role | Phone | + +------+ + | Fadi Goodrich DO | PCP | | + +------+ + Encounter Details +--------+ + + + + | Date | Type | Department | Care Team | Description | +--------+ + + + + | /10/ | Orders Only | JUNO Cardoso | Sulema Altamirano | | | 2018 | | Cardiology Kishan | [address] | | | | | [address] [facility] [address] | [place] | | | | | [facility] [address] | [place] [address] | | | | | [place] [address] | [phone] | | | | | [phone] | | | +--------+ + + + [...] [address] | | | | | | [place] [address] | | | | | | [phone] | | | | | | | | +--------+---------+ + + + as of this encounter Visit Diagnoses Not on filein this encounter"
--- OUTSIDE RECORDS SUMMARY | ~2018-04-27 | XMS | Encounter Summary ---
Demographics + + + | Address | [address] | | | [place] [address] | + + + | Home Phone | | + + + | Preferred Language | Unknown | + + + | Marital Status | | + + + | Restorationism Affiliation | Unknown | + + + | Race | Unknown | + + + | Ethnic Group | Unknown | + + + Author + + + | Author | [facility] | + + + | Organization | [facility] | + + + | Address [...] Providers + +------+ + | Care Commercial Fishing Vessel Operator Name | Role | Phone | [...] Description | +--------+--------+ + + + | 02/02/ | Refill | JUNO Drasco | Cheyanne Miner, | Medication Refill | | 2017 | | Cardiology Jesus | MA | | | | | [address] [facility] [address] | | | | | | [facility] [address] | | | | | | [place] [address] | | | | | | [phone] | | | +--------+--------+ + + + [...] [place] | | | | | | [place] [address] | | | | | | [phone] | | | | | | | | +--------+---------+ + + + as of this encounter Visit Diagnoses Not on filein this encounter"
--- OUTSIDE RECORDS SUMMARY | ~2018-04-27 | XMS | Encounter Summary ---
Demographics + + + | Address | [address] | | | [place] [address] | + + + | Home Phone [...] + | KENNY BERRY | ECON | [address] | | | | | [place], [place] | | | | | [address] | | + + + + + | MAXIMILIANO FARRELL | ECON | Unknown | | + + + + + Care Team Providers + +------+ + | Care Girls Tennis Coach Name | Role | Phone | [...] from Patient; | | 2017 | | Center [address] | [address] | Postoperative | | | | [address] Mailcode: | [place], [place] | infection | | | | [address] | [address] | | | | | [facility], | [phone] | | | | | [address] [place] [address], | | | | | | [place] [address] | | | | | | [phone] | | | +--------+ + + + [...] | | | | | | [address] | | | | | | [place], [place] | | | | | | [address] | | +--------+---------+ + + + | 05/27/ | Office | Surgery | Ronna Clarke, | | | 2018 | Visit | | KAIN [address] | | | | | | [place], [place] | | | | | | [address] | | | | | | [phone] | | | | | | | | +--------+---------+ + + + | 05/27/ | Office | Pain Management | Demar Cueva, PhD | | | 2017 | Visit | | [address] | | | | | | [place], [place] | | | | | | [address] | | | | | | [phone] | | | | | | | | +--------+---------+ + + + | 06/04/ | Office | Cardiology | Randell Franks, | | | 2017 | Visit | | MD [address] | | | | | | [place], [place] | | | | | | [address] | | | | | | [phone] | | | | | | | | +--------+---------+ + + + as of this encounter Visit Diagnoses Not on filein this encounter"
--- OUTSIDE RECORDS SUMMARY | ~2018-04-27 | XMS | Clinical Summary ---
Demographics + + + | Address | [address] | | | [place] [address] | + + + | Home Phone | | + + + | Preferred Language | Unknown | + + + | Marital Status | | + + + | Alevism Affiliation | Unknown | + + + | Race | Unknown | + + + | Ethnic Group | Unknown | + + + Author + + + | Author | [facility] | + + + | Organization | [facility] | + + + | Address [...] Team Providers + +------+ + | Care Bingo Attendant Name | Role | Phone | [...] | | | Activ | | SA (KWANDA THAO) | 4 (four) times | | | [...] + +--------+---------+------+------+-------+ | ascorbic acid | Take 1,000 mg by | | | | | Activ | | (VITAMIN C) 500 MG | mouth daily. | | | | | e | | tablet | | | | | | | + + +--------+---------+------+------+-------+ | ergocalciferol | Take 50,000 Units by | | | | | Activ | | (DRISDOL) 13394 | mouth twice a week. | | | | | e | | UNITS capsule | | | | | | | + + +--------+---------+------+------+-------+ | Insulin Degludec | Inject 37 Units into | | | | | [...] | | (SUDAFED) 120 MG 12 | as needed. | | | | | e | | hr tablet | | | | | | | + + +--------+---------+------+------+-------+ | Etonogestrel | Inject into the | | | | | Activ | | (NEXPLANON) 68 MG | skin. | | | | | e | | IMPL | | | | | | | + + +--------+---------+------+------+-------+ | atenolol | Take 50 mg by mouth | | | | | Activ | | (TENORMIN) 50 MG | every evening. | | | | | e | | tablet | | | | | | | + + +--------+---------+------+------+-------+ | hydrOXYzine | Take 25 mg by mouth | | | | | Activ | | (ATARAX) 25 MG | 3 (three) times | | | | | e | | tabletIndications: | daily as needed for | | | | | | | Anxiety | Anxiety. | | | | | | + + +--------+---------+------+------+-------+ | ondansetron | Take 8 mg by mouth 3 | | | | | Activ | | (ZOFRAN) 8 MG tablet | (three) times daily | | | | | e | | | as needed for | | | | | | | | Nausea. | | | | | | + + +--------+---------+------+------+-------+ | Docusate Calcium | Take 200 mg by mouth | | | | | Activ | | (STOOL SOFTENER PO) | 2 (two) times | | | | | e | | | daily. | | | | | | + + +--------+---------+------+------+-------+ | ferrous gluconate | Take 324 mg by mouth | | | | | Activ | | 324 (37.5 Fe) MG | 3 (three) times | | | | | e | | tablet | daily with meals. | | | | | | + + +--------+---------+------+------+-------+ | insulin | Inject 5 Units into | | | | 10/0 | Disco | | NPH-insulin regular | the skin 2 (two) | | | | 1/20 | ntinu | | (NOVOLIN 70/30) | times daily before | | | | 18 | ed | | (70-30) 100 UNIT/ML | meals. | | | | | | | injection | | | | | | | + + +--------+---------+------+------+-------+ | ALPRAZolam (XANAX) | Take 1 mg by mouth | | | | 10/0 | Disco | | 1 MG tablet | nightly as needed | | | | 1/20 | ntinu | | | for Sleep. | | | | 18 | ed | + + +--------+---------+------+------+-------+ | fentaNYL | Place 1 patch onto | | | | 10/0 | Disco | | (DURAGESIC) 25 | the skin every third | | | | 1/20 | ntinu | | MCG/HR | day. | | | | 18 | ed | + + +--------+---------+------+------+-------+ | ondansetron | Take 4 mg by mouth 3 | | | | 10/0 | Disco | | (ZOFRAN) 4 MG tablet | (three) times daily | | | | 1/20 | ntinu | | | as needed for | | | | 18 | ed | | | Nausea. | | | | | | + + +--------+---------+------+------+-------+ | atenolol | Take 1 tablet by | 30 | 11 | 01/24 | 10/0 | Disco | | (TENORMIN) 25 MG | mouth nightly. | tablet | | 0/20 | 1/20 | ntinu | | tablet | | | | 18 | 18 | ed | + + +--------+---------+------+------+-------+ Active Problems + + + | Problem | Noted Date | + + + | History of sinus tachycardia | 04/26/2018 | + + + | HTN, goal below 130/80 | 04/26/2018 | + + + | Transient cerebral ischemia | 04/26/2018 | + + + | Pure hyperglyceridemia | 04/26/2018 | + + + | [...] | obesity, she is enrolled in the [facility] bariatric program. She has | | lost [...] obesityPickwickian syndrome Recent | | admission to [facility] for 100lb weight | | gain- DC on diuresis on 03/06/2016- she feel improvedShyesenia was on | | Metolazone and Torsemide prior to hospitalization- both have | | better bioavailability than lasix in gut edema but she retained | | 100lbs - how ever she is currently on only Torsemide 100mg Q12hrs | | started in [place] and her weight been stable sinceShe has no | | other complaints.She is pending to see NephrologistEcho | | 02/16/2016([facility] Normal LV systolic function, mildly | | [...] + + + + | 04/26/ | Office | | Sulema Altamirano | 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 | Visit | | SELINA Pope | 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 | | | | | | (HCC) (Primary Dx); | | | | | | History of sinus | | | | | | tachycardia; | | | | [...] | | | | | surgery | +--------+ + + + + | 04/26/ | Documentati | | Cheyanne Miner, | Other ([facility] | | 2017 | on Only | | [place] | ED Notes 11/23/17) | +--------+ + + + + | 04/21/ | Documentati | | Cheyanne Miner, | Other ([facility] Notes | 2017 | on Only | | [place] | 03/30/18) | +--------+ + + + + | 02/02/ | Orders Only | | Sulema Altamirano | | | 2017 | | | SELINA Pope | | +--------+ + + + + | 02/02/ | Refill | | Cheyanne Miner, | Medication Refill | | 2017 | | | [place] | | +--------+ + + + + [...] + + | 07/29/ | Office | | Sulema Altamirano | | | 2019 | Visit | | SELINA Pope [address] | | | | | | [address] | | | | | | [place] [address] | | | | | | [phone] | | | | | | | [...] + + from Last 3 Months Results EKG STANDARD 12 LEAD (04/26/2018 2:36 [...] + + + + | Calculated P [place] | 32 | degrees | [facility] EKG | + + + + + | Calculated R [place] | 75 | degrees | [facility] EKG | + + + + + | Calculated T [place] | 40 | degrees | [facility] EKG | + + + + + | Diagnosis | Please refer to | | [facility] | | | Providers office visit | | | | | note for Providers | | | | | Interpretation.Confirmed | | | | | by [facility] [place] Read Only, | | | | | [facility] ([id number]), | | | | | loan expeditor [place] | | | | | ([id number]) on 04/26/2018 | | | | | 3:46:10 PM | | | + + + + + + + + + + | Performing | Address | City/State/Zipcode | Phone Number | | Organization | | | | + + + + + | [facility] | [address] 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
--- OUTSIDE RECORDS SUMMARY | ~2018-04-27 | XMS | Encounter Summary ---
Demographics + + + | Address | [address] | | | [place] [address] | + + + | Home Phone [...] [place], [place] | | | | | [address] | | + + + + + | MAXIMILIANO FARRELL | ECON | Unknown | | + + + + + Care Team Providers + +------+ + | Care Chief I Dispatcher Name | Role | Phone | [...] the | | | | | | floor [address] [facility] | | | | | | [facility] | | | | | | [place], [place] | | | | | | [address] | | | +--------+ + + + [...] | | 2018 | Visit | | [address] [facility] | | | | | | [address] | | | | | | [place] | | | | | | [address] | | +--------+---------+ + + + | 05/27/ | Office | Surgery | Ronna Clarke, | | | 2017 | Visit | | ACNP [address] | | | | | | [address] [place], [place] | | | | | | [address] | | | | | | [phone] | | | | | | | | +--------+---------+ + + + | 05/27/ | Office | Pain Management | Demar Cueva, PhD | | | 2017 | Visit | | [address] | | | | | | [place] | | | | | | [address] | | | | | | [phone] | | | | | | | | +--------+---------+ + + + | 06/04/ | Office | Cardiology | Randell Franks, | | | 2017 | Visit | | MD [address] | | | | | | [place], [place] | | | | | | [address] | | | | | | [phone] | | | | | | | | +--------+---------+ + + + as of this encounter Visit Diagnoses Not on filein this encounter"
--- OUTSIDE RECORDS SUMMARY | ~2018-04-27 | XMS | Encounter Summary ---
Demographics + + + | Address | [address] | | | [place] [address] | + + + | Home Phone [...] + | KENNY BERRY | ECON | [address] | | | | | [place], [place] | | | | | [address] | | + + + + + | MAXIMILIANO FARRELL ECON | Unknown | | + + + + + Care Team Providers + +------+ + | Care Water Conservationist Name | Role | Phone | + +------+ + | Fadi Goodrich DO | PCP | | + +------+ + Encounter Details +--------+ + + + + | Date | Type | Department | Care Team | Description | +--------+ + + + + | 02/22/ | Anesthesia | Preoperative | Luis Eduardo, Gay S, | | | 2018 | Event | [facility] at | DNP,ANP [address] | | | | | [facility] 4th Floor [address] | | | | | [address] | [place], [place] | | | | | Code: [address] | [address] | | | | | for Health and | [phone] | | | | | Healing, 4th Floor | | | | | | [place], [place] | | | | | | [address] | | | | | | [phone] | | | +--------+ + + + [...] Rd | | | | | | [place], [place] | | | | | | [address] | | +--------+---------+ + + + | 05/27/ | Office | Surgery | Ronna Clarke, | | | 2017 | Visit | | ACNP [address] | | | | | | [place] [facility] [place] | | | | | | [address] | | | | | | [phone] | | | | | | | | +--------+---------+ + + + | 05/27/ | Office | Pain Management | Demar Cueva, PhD | | | 2017 | Visit | | [address] | | | | | | [place], [place] | | | | | | [address] | | | | | | [phone] | | | | | | | | +--------+---------+ + + + | 06/04/ | Office | Cardiology | Randell Franks, | | | 2017 | Visit | | [address] | | | | | | [place] | | | | | | [address] | | | | | | [phone] | | | | | | | | +--------+---------+ + + + as of this encounter Visit Diagnoses Not on filein this encounter"
--- OUTSIDE RECORDS SUMMARY | ~2018-04-27 | XMS | Encounter Summary ---
Demographics + + + | Address | [address] | | | [place] [address] | + + + | Home Phone [...] + | KENNY BERRY | ECON | [address] | | | | | [place], [place] | | | | | [address] | | + + + + + | MAXIMILIANO FARRELL ECON | Unknown | | + + + + + Care Team Providers + +------+ + | Care Hand Plate Stacker Name | Role | Phone | + +------+ + | Fadi Goodrich DO | PCP | | + +------+ + Encounter Details +--------+ + + + + | Date | Type | Department | Care Team | Description | +--------+ + + + + | 03/10/ | Pharmacy | [facility] | | | | 2017 | Visit | [facility] | | | | | | [address] | | | | | | [place], [place] | | | | | | [address] | | | | | | [phone] | | | +--------+ + + + [...] | 2017 | Visit | | [address] [facility] | | | | | | [address] | | | | | | [place], [place] | | | | | | [address] | | +--------+---------+ + + + | 05/27/ | Office | Surgery | Ronna Clarke, | | | 2017 | Visit | | [facility] [address] | | | | | | [address] [place], [place] | | | | | | [address] | | | | | | [phone] | | | | | | | | +--------+---------+ + + + | 05/27/ | Office | Pain Management | Demar Cueva, PhD | | | 2017 | Visit | | [address] [place] | | | | | | [place], [place] | | | | | | [address] | | | | | | [phone] | | | | | | | | +--------+---------+ + + + | 06/04/ | Office | Cardiology | Randell Franks, | | | 2017 | Visit | | [address] | | | | | | [place], [place] | | | | | | [address] | | | | | | [phone] | | | | | | | | +--------+---------+ + + + as of this encounter Visit Diagnoses Not on filein this encounter"
--- OUTSIDE RECORDS SUMMARY | ~2018-04-27 | XMS | Encounter Summary ---
Demographics + + + | Address | [address] | | | [place] [address] | + + + | Home Phone | | + + + | Preferred Language | Unknown | + + + | Marital Status | | + + + | Restorationist Affiliation | Unknown | + + + | Race | Unknown | + + + | Ethnic Group | Unknown | + + + Author + + + | Author | [facility] [employer] [facility] | + + + | Organization | [facility] | + + + | Address [...] Providers + +------+ + | Care Child Life Therapist Name | Role | Phone | [...] [address] | | | | | [address] [facility] [address] | [address] | | | | | [facility] [address] | [place] [address] | | | | | [place] [address] | [phone] | | | | | [phone] | | | +--------+ + + + [...] [address] | | | | | | [place] [address] | | | | | | [phone] | | | | | | | | +--------+---------+ + + + as of this encounter Visit Diagnoses Not on filein this encounter"
--- OUTSIDE RECORDS SUMMARY | ~2018-04-27 | XMS | Encounter Summary ---
Demographics + + + | Address | [address] | | | [place] [address] | + + + | Home Phone [...] + | KENNY BERRY | ECON | [address] | | | | | [place], [place] | | | | | [address] | | + + + + + | MAXIMILIANO FARRELL | ECON | Unknown | | + + + + + Care Team Providers + +------+ + | Care Counter Top Assembler Name | Role | Phone | [...] + + | 03/01/ | Hospital | [facility] [address] | Ion Castanon, | | | 2018 - | Encounter | [address] | [address] | | | | | [place] [address] | [place], [place] | | | 03/03/ | | [phone] | [address] | | | 2017 | | | [phone] | | | | | | | [...] note may be different from jennifer mendiola. [facility] RED SURGERY INPATIENT DISCHARGE SUMMARY Author: KAIN [...] a bariatric full liquid diets. Our [facility] dietitian was consulted and they discussed [...] at minimum. 5. Follow with PCP for Mails Supervisor within 1 - 2 weeks of [...] mg by mouth two times daily. CALCIUM CRB&OUS-I8-ULL27-GENIS ORAL Take 2 tablets by mouth two [...] or Kefir, [place] Yogurt, and Chioban i Libyan Yogurt are common brands with beneficial probiotics. [...] are available over the counter at most [facility] [employer] stores. Nausea/Vomiting/Difficulty Swallowing Nausea/Vomiting/Difficulty swallowing: Could be [...] hours per your instructions. Some medications, like [place], have Tylenol in it. Make sure you [...] hours by calling the surgery office at [phone]. - After hours, weekends and holidays, you may call the hospital flocculator operator at [phone] an d have the wildlife conservation professor Red Surgery Team paged. OTHER DISCHARGE ORDERS [...] at minimum. 5. Follow with PCP for Mails Supervisor within 1 - 2 weeks of [...] Department Dept Phone Center 03/10/2018 1:30 PM [facility] 6th Floor [phone] FO OD AND NUT 03/10/2018 3:05 PM [facility] at [facility] 6th Floor [phone] [facility] 04/01/2018 10:30 AM [facility] at [facility] 6th Floor [phone] FO OD AND NUT 04/01/2018 11:00 AM Ion Cast[facility] at [facility] 6th Floor [phone] [facility] 05/27/2018 2:30 PM [facility] 6th Floor [phone] FO OD AND NUT 05/27/2018 3:05 PM [facility] at [facility] 6th Floor [phone] [facility] 05/27/2018 4:30 PM [facility] at [facility] 15th Floor [phone] Comprehensiv 06/04/2018 10:35 RIOS Franks Cardiology Preventive at [facility] [phone] Cardiology Discharging Physician: KAIN Agee Attending Physician: Ion Castanon MD [facility] Surgery Pager# [phone] 9:50 AM 03/03/2018 in this encounter Medications [...] by | | | | | | CRB&IKR-[id number]-[id number]-GEN | mouth two times | | | [...] for | | | | | | ([facility]) | constipation. | | | | [...] date of discharge 03/03/18 PARTHA Calixto MS[employer] [facility] [employer] Demarcus Alas MD - [...] for care ride home (pt lives in [place]) Demarcus Alas M.D. General Surgery Resident PGY-1 Pager: [phone] Ion Castanon MD - 03/02/2018 10:00 AM [...] | 2017 | Visit | | RD [address] | | | | | | [address] | | | | | | [place], [place] | | | | | | [address] | | +--------+---------+ + + + | 05/27/ | Office | Surgery | Ronna Clarke, | | | 2017 | Visit | | KAIN [address] | | | | | | [address] [place], [place] | | | | | | [address] | | | | | | [phone] | | | | | | | | +--------+---------+ + + + | 05/27/ | Office | Pain Management | Demar Cueva, PhD | | | 2017 | Visit | | [address] | | | | | | [place], [place] | | | | | | [address] | | | | | | [phone] | | | | | | | | +--------+---------+ + + + | 06/04/ | Office | Cardiology | Randell Franks, | | | 2018 | Visit | | MD [address] | | | | | | [place], [place] | | | | | | [address] | | | | | | [phone] | | | | | | | [...] | PDT | over, adult ([facility]) | results section. | + +--------+ + + + | CAPILLARY BLOOD | Routin | 03/03/2018 | Morbid obesity | Results for this | | GLUCOSE (NO CHG), | e | 7:54 AM | with BMI of 70 and | procedure are in the | | POC | | PDT | over, adult ([facility]) | results section. | + +--------+ + + + | CAPILLARY BLOOD | Routin | 03/03/2018 | Morbid obesity | Results for this | | GLUCOSE (NO CHG), | e | 6:28 AM | with BMI of 70 and | procedure are in the | | POC | | PDT | over, adult ([facility]) | results section. | + +--------+ + + + | CAPILLARY BLOOD | Routin | 03/02/2018 | Morbid obesity | Results for this | | GLUCOSE (NO CHG), | e | 9:17 PM | with BMI of 70 and | procedure are in the | | POC | | PDT | over, adult ([facility]) | results section. | + +--------+ + + + | CAPILLARY BLOOD | Routin | 03/02/2018 | Morbid obesity | Results for this | | GLUCOSE (NO CHG), | e | 6:50 PM | with BMI of 70 and | procedure are in the | | POC | | PDT | over, adult ([facility]) | results section. | + +--------+ + + + | CAPILLARY BLOOD | Routin | 03/02/2018 | Morbid obesity | Results for this | | GLUCOSE (NO CHG), | e | 3:46 PM | with BMI of 70 and | procedure are in the | | POC | | PDT | over, adult ([facility]) | results section. | + +--------+ + + + | CAPILLARY BLOOD | Routin | 03/02/2018 | Morbid obesity | Results for this | | GLUCOSE (NO CHG), | e | 2:36 PM | with BMI of 70 and | procedure are in the | | POC | | PDT | over, adult ([facility]) | results section. | + +--------+ + + + | CAPILLARY BLOOD | Routin | 03/02/2018 | Morbid obesity | Results for this | | GLUCOSE (NO CHG), | e | 1:33 PM | with BMI of 70 and | procedure are in the | | POC | | PDT | over, adult ([facility]) | results section. | + +--------+ + + + | CAPILLARY BLOOD | Routin | 03/02/2018 | Morbid obesity | Results for this | | GLUCOSE (NO CHG), | e | 11:36 AM | with BMI of 70 and | procedure are in the | | POC | | PDT | over, adult ([facility]) | results section. | + +--------+ + + + | CAPILLARY BLOOD | Routin | 03/02/2018 | Morbid obesity | Results for this | | GLUCOSE (NO CHG), | e | 10:32 AM | with BMI of 70 and | procedure are in the | | POC | | PDT | over, adult ([facility]) | results section. | + +--------+ + + + | CAPILLARY BLOOD | Routin | 03/02/2018 | Morbid obesity | Results for this | | GLUCOSE (NO CHG), | e | 9:23 AM | with BMI of 70 and | procedure are in the | | POC | | PDT | over, adult ([facility]) | results section. | + +--------+ + + + | CAPILLARY BLOOD | Routin | 03/02/2018 | Morbid obesity | Results for this | | GLUCOSE (NO CHG), | e | 8:36 AM | with BMI of 70 and | procedure are in the | | POC | | PDT | over, adult ([facility]) | results section. | + +--------+ + + + | CAPILLARY BLOOD | Routin | 03/02/2018 | Morbid obesity | Results for this | | GLUCOSE (NO CHG), | e | 7:35 AM | with BMI of 70 and | procedure are in the | | POC | | PDT | over, adult ([facility]) | results section. | + +--------+ + + + | CAPILLARY BLOOD | Routin | 03/02/2018 | Morbid obesity | Results for this | | GLUCOSE (NO CHG), | e | 6:33 AM | with BMI of 70 and | procedure are in the | | POC | | PDT | over, adult ([facility]) | results section. | + +--------+ + + + | CAPILLARY BLOOD | Routin | 03/02/2018 | Morbid obesity | Results for this | | GLUCOSE (NO CHG), | e | 5:28 AM | with BMI of 70 and | procedure are in the | | POC | | PDT | over, adult ([facility]) | results section. | + +--------+ + + + | CAPILLARY BLOOD | Routin | 03/02/2018 | Morbid obesity | Results for this | | GLUCOSE (NO CHG), | e | 4:36 AM | with BMI of 70 and | procedure are in the | | POC | | PDT | over, adult ([facility]) | results section. | + +--------+ + + + | CAPILLARY BLOOD | Routin | 03/02/2018 | Morbid obesity | Results for this | | GLUCOSE (NO CHG), | e | 2:46 AM | with BMI of 70 and | procedure are in the | | POC | | PDT | over, adult ([facility]) | results section. | + +--------+ + + + | CAPILLARY BLOOD | Routin | 03/02/2018 | Morbid obesity | Results for this | | GLUCOSE (NO CHG), | e | 12:32 AM | with BMI of 70 and | procedure are in the | | POC | | PDT | over, adult ([facility]) | results section. | + +--------+ + + + | CAPILLARY BLOOD | Routin | 03/01/2018 | Morbid obesity | Results for this | | GLUCOSE (NO CHG), | e | 10:31 PM | with BMI of 70 and | procedure are in the | | POC | | PDT | over, adult ([facility]) | results section. | + +--------+ + + + | CAPILLARY BLOOD | Routin | 03/01/2018 | Morbid obesity | Results for this | | GLUCOSE (NO CHG), | e | 8:21 PM | with BMI of 70 and | procedure are in the | | POC | | PDT | over, adult ([facility]) | results section. | + +--------+ [...] | PDT | over, adult ([facility]) | results section. | + +--------+ + + + | CAPILLARY BLOOD | Routin | 03/01/2018 | Morbid obesity | Results for this | | GLUCOSE (NO CHG), | e | 3:31 PM | with BMI of 70 and | procedure are in the | | POC | | PDT | over, adult ([facility]) | results section. | + +--------+ + + + | CAPILLARY BLOOD | Routin | 03/01/2018 | Morbid obesity | Results for this | | GLUCOSE (NO CHG), | e | 3:29 PM | with BMI of 70 and | procedure are in the | | POC | | PDT | over, adult ([facility]) | results section. | + +--------+ + + + | CAPILLARY BLOOD | Routin | 03/01/2018 | Morbid obesity | Results for this | | GLUCOSE (NO CHG), | e | 2:30 PM | with BMI of 70 and | procedure are in the | | POC | | PDT | over, adult ([facility]) | results section. | + +--------+ + + + | CAPILLARY BLOOD | Routin | 03/01/2018 | Morbid obesity | Results for this | | GLUCOSE (NO CHG), | e | 1:35 PM | with BMI of 70 and | procedure are in the | | POC | | PDT | over, adult ([facility]) | results section. | + +--------+ + + + | CAPILLARY BLOOD | Routin | 03/01/2018 | Morbid obesity | Results for this | | GLUCOSE (NO CHG), | e | 12:16 PM | with BMI of 70 and | procedure are in the | | POC | | PDT | over, adult ([facility]) | results section. | + +--------+ [...] | PDT | over, adult ([facility]) | results section. | + +--------+ + + + | LAPAROSCOPIC | Electi | 03/01/2018 | Morbid obesity | | | NISH-EN-Y GASTRIC | ve | 8:30 AM | ([facility]) | | | BYPASS | Surgic [...] AMES | [address] | [place], [place] | | | [facility] OF [facility] | [facility] | [address] | | | TESTS | | | [...] + + | NKECHI AMES | [address] [facility] [address] | [place], [place] | | | [place] [facility] | [address] | [address] | | | TESTS | | | [...] KWAKU | [address] | [place], [place] | | | [facility] [facility] | [address] | [address] | | | TESTS | | | [...] AMES | [address] | [place], [place] | | | [place], POINT OF CARE | [facility] | [address] | | | TESTS | | | [...] AMES | [address] | [place], [place] | | | [place] [facility] | [address] | [address] | | | TESTS | | | [...] AMES | [address] | [place], [place] | | | [facility] OF JAKY | [facility] | [address] | | | TESTS | | | [...] AMES | [address] | [place], [place] | | | [facility] OF JAK[place] | [address] | [address] | | | TESTS | | | [...] KWAKU | [address] | [place], [place] | | | [place] [facility] | [address] | [address] | | | TESTS | | | [...] YAKOVAM | [address] | [place], [place] | | | [place] [facility] | [address] | [address] | | | TESTS | | | [...] NKECHI AMES | [address] | [place], [place] | | | [facility] OF CARE | [facility] | [address] | | | TESTS | | | [...] MARQUAM | [address] | [place], [place] | | | [place] [facility]ARE | [facility] | [address] | | | TESTS | | | [...] AMES | [address] | [place], [place] | | | [facility] OF CARE | [address] | [address] | | | TESTS | | | [...] AMES | [address] | [place], [place] | | | [place] [facility]ARE | [address] | [address] | | | TESTS | | | [...] MARKAMILLA | [address] | [place], [place] | | | [facility] CARE | [address] | [address] | | | TESTS | | | [...] - MARQUAM | [address] | [place], [place] | | | [place] [facility]ARE | [address] | [address] | | | TESTS | | | | + + + + + CAPILLARY BLOOD GLUCOSE (NO CHG), POC (03/02/2018 4:36 AM) + +-------+ + + | Component | Value | Ref Range | Performed At | + +-------+ + + | BLOOD GLUCOSE, POC | 97 | 70 - 99 mg/dL | N[facility] AMES | | | | | [facility] | | | | | CARE TESTS | + +-------+ + + + + + + + | Performing | Address | City/State/Zipcode | Phone Number | | Organization | | | | + + + + + | OHORIN AMES | [address] | [place], [place] | | | [facility] CARE | [address] | [address] | | | TESTS | | | [...] AMES | [address] | [place], [place] | | | [place] [facility] OF [facility] | [address] | [address] | | | TESTS | | | [...] + + + | NKECHI AMES | [address] | [place], [place] | | | [facility] CARE | [facility] | [address] | | | TESTS | | | [...] AMES | [address] | [place], [place] | | | [place] [facility]ARE | [address] | [address] | | | TESTS | | | [...] MARKAMILLA | [address] | [place], [place] | | | [facility] CARE | [address] | [address] | | | TESTS | | | [...] AMES | [address] | [place], [place] | | | [facility] [facility] | [facility] | [address] | | | TESTS | | | [...] AMES | [address] | [place], [place] | | | [facility] CARE | [facility] | [address] | | | TESTS | | | [...] AMES | [address] | [place], [place] | | | [facility] OF JAKY | [address] | [address] | | | TESTS | | | [...] AMES | [address] | [place], [place] | | | [place] [facility]ARE | [address] | [address] | | | TESTS | | | [...] MARQUAM | [address] | [place], [place] | | | [place] [facility] CARE | [address] | [address] | | | TESTS | | | [...] + + | NKECHI AMES | [address] [facility] [address] | [place], [place] | | | [facility] | [address] | [address] | | | TESTS | | | | + + + + + EGD (ESOPHAGOGASTRODUODENOSCOPY) (03/01/2018 11:21 AM) + + + | Narrative | Performed At | + + + | Ion Castanon MD 03/01/2018 12:25 PM Date of Procedure: | | | 03/01/18 Primary Surgeon: Ion Castanon MD Co Surgeon or | | | staff physical therapy assistant: Eldon Gonzalez MD, Chief Resident Alexx [...] | | | divided with 60 mm Stewart stapler with white load and the distal [...] created in each limb and a 60mm Stewart stapler | | | with white load was fired to create a xbut-es-jusw | | | jejunojejunostomy. The anastamosis was confirmed to be widely | | | patent and hemostatic. The common enterotomy was closed by | | | placing 2 stay sutures along the enterotomy for retraction and | | | firing an Stewart 60mm stapler with white load across the [...] was entered. The 60mm | | | Stewart stapler with blue load was placed and [...] the 60mm stapler. The | | | Stewart was then fired longitudinally towards the angle of His to | | | create the gastric pouch, leaving the gastrotomy from foreign body | | | removal, on the pouch. Dissection was performed retrogastric to | | | connect posterior and anterior dissection planes and ensure adequate | | | fundus exclusion. Additional fires of the Stewart stapler were | | | performed with [...] ooze were controlled with 5 mm clip senior devops engineer. A 25mm Orvil | | | was [...] The jejunal enterotomy was closed with 60mm Stewart | | | stapler with a white [...] was present as my | | | staff physical therapy assistant for the entire procedure, given the technically | | | challenging nature of this procedure. She assisted in all critical | | | steps of the procedure. Dr. Gonzalez was present for endoscopy at the | | | end of the procedure. Ion Castanon MD, FACS, [facility] | | | Bariatric Surgery | | [...] MD Co Surgeon or | | | staff physical therapy assistant: Eldon Gonzalez MD, Chief Resident Alexx [...] | | | divided with 60 mm Stewart stapler with white load and the distal [...] created in each limb and a 60mm Stewart stapler | | | with white load was fired to create a xfwi-ja-fxmm | | | jejunojejunostomy. The anastamosis was confirmed to be widely | | | patent and hemostatic. The common enterotomy was closed by | | | placing 2 stay sutures along the enterotomy for retraction and | | | firing an Stewart 60mm stapler with white load across the [...] was entered. The 60mm | | | Stewart stapler with blue load was placed and [...] the 60mm stapler. The | | | Stewart was then fired longitudinally towards the angle of His to | | | create the gastric pouch, leaving the gastrotomy from foreign body | | | removal, on the pouch. Dissection was performed retrogastric to | | | connect posterior and anterior dissection planes and ensure adequate | | | fundus exclusion. Additional fires of the Stewart stapler were | | | performed with [...] ooze were controlled with 5 mm clip senior devops engineer. A 25mm Orvil | | | was [...] The jejunal enterotomy was closed with 60mm Stewart | | | stapler with a white [...] was present as my | | | staff physical therapy assistant for the entire procedure, given the technically | | | challenging nature of this procedure. She assisted in all critical | | | steps of the procedure. Dr. Gonzalez was present for endoscopy at the | | | end of the procedure. Ion Castanon MD, FACS, [facility] | | | Bariatric Surgery | | [...] + + + + + | NKECHI Louise KWAKU | [address] | [place], [place] | | | [place]WN | [address] | [address] | | | TESTS | | | [...] thrombosis and embolism | + + | Decreased mobility | + + | Abnormality of gait | + + Admitting Diagnoses + + | Diagnosis | + + | MORBID OBESITY | + + Administered Medications + +--------+ + +------+------+ | Medication Order | MAR | Action | Dose | Rate | Site | | | Action | Date | | | | + +--------+ + +------+------+ | acetaminophen (TYLENOL) tablet | Given | 03/01/2018 | 1,000 mg | | | | 1,000 mg 1,000 mg, oral, EVERY 8 | | 15:26 | | | | | HOURS, 3 doses, First dose on | | PDT | | | | | 03/01/18 at 1415, Last dose on | | | | | | | 03/02/18 at 0600 | | | | | | + +--------+ + +------+------+ +-------+ + +---+---+ | Given | 03/01/2018 | 1,000 mg | | | | | 22:31 | | | | | | PDT | | | | +-------+ + +---+---+ | Given | 03/02/2018 | 1,000 mg | | | | | 06:35 | | | | | | PDT | | | | +-------+ + +---+---+ +---+---+ | | | +---+---+ + +-------+ + +---+---+ | acetaminophen (TYLENOL) tablet | Given | 03/03/2018 | 1,000 mg | | | | 1,000 mg 1,000 mg, oral, EVERY 6 | | 06:28 | | | | | HOURS NEEDED, Starting e | | PDT | | | | | 03/02/18 at 1400, Until Thu03/03/18 | | | | | | | at 1930, mild pain, fever, | | | | | | | multimodal pain control | | | | | | + +-------+ + +---+---+ +-------+ + +---+---+ | Given | 03/03/2018 [...] | celecoxib (CELEBREX) capsule | Given | 03/01/2018 | 200 mg | | | | 200 mg 200 mg, oral, TWICE | | 15:26 | | | | | DAILY, 2 doses, First dose on Mon | | PDT | | | | | 03/01/18 at 1430, Last dose on Thu | | | | | | | 03/01/18 at 2100 | | | | | | + +-------+ +--------+---+---+ +-------+ +--------+---+---+ | Given | 03/01/2018 | 200 mg | | | | | 20:33 | | | | | | PDT | | | | +-------+ +--------+---+---+ +---+---+ | | | +---+---+ + +-------+ +--------+---+---------+ | cyanocobalamin (VITAMIN B-12) | Given | 03/02/2018 | 1,000 | | Abdomen | | injection 1,000 mcg 1,000 mcg, | | 08:42 | mcg | | | | subcutaneous, DAILY, 1 dose, | | PDT | | | | [...] | enoxaparin (LOVENOX) injection | Given | 03/01/2018 | 40 mg | | Abdomen | | 40 mg 40 mg, subcutaneous, | | 08:03 | | | | | PREPROCEDURE ONCE, 1 dose, | | PDT | | | | | Starting [...] | | 12 HOURS, First dose on Thu | | PDT | | | | [...] 50 mcg 50 mcg, intravenous, | | 12:53 | | | | | POSTPROCEDURE PRN, 4 doses, | | PDT | | | | | Starting Thu03/01/18 at 0944, | | | | | | | Until Thu03/01/18 at 1410, severe | | | | | | | pain while in Phase I Recovery | | | | | | + +-------+ +--------+---+---+ +-------+ +--------+---+---+ | Given | 03/01/2018 | 50 mcg | | | | | 13:30 | | | | | | PDT [...] DAILY, First dose on 03/01/18 | | PDT | | | [...] injection 0.5-1 mg 0.5-1 mg, | | 06:35 | | | | | intravenous, EVERY 1 HOUR | | PDT | | | | | NEEDED, Starting Thu03/01/18 at | | | | | | | 1412, Until Thu03/02/18 at 1618, | | | | | | | severe pain | | | | | | + +-------+ +--------+---+---+ +-------+ +--------+---+---+ | Given | 03/02/2018 | 0.5 mg | | | | | 10:00 | | | | | | PDT | | | | +-------+ +--------+---+---+ | Given | 03/02/2018 | 0.5 mg | | | | | 12:55 | | | | | | PDT [...] | insulin glargine (LANTUS) | Given | 03/02/2018 | 28 Units | | Abdomen | | injection 28 Units 28 Units, | | 12:53 | | | | | subcutaneous, ONCE, 1 dose, Tue | | PDT | | | [...] in NaCl 0.9% IV | Rate/Dos | 03/02/2018 | 1.1 | 1.1 | | | infusion (1 unit/mL) 0.1-50 | e Change | 11:38 | Units/hr | mL/hr | | | Units/hr (0.1-50 mL/hr), | | PDT | | | | | intravenous, CONTINUOUS, Starting | | | | | | | 03/01/18 at 1300, Until Tue | | | | | | | 03/02/18 at 1511 | | | | | | + + + + +-------+---+ + + + +-------+---+ | Rate/Dose Change | 03/02/2018 | 0.5 | 0.5 | | | | 13:34 | Units/hr | mL/hr | | | | PDT | | | | + + + +-------+---+ | Rate/Dose Change | 03/02/2018 | 0.9 | 0.9 | | | | 14:38 | Units/hr | mL/hr | | | | PDT | | | | + + + +-------+---+ +---+---+ | | | +---+---+ + +-------+ +-------+---+---+ | ketorolac (TORADOL) injection | Given | 03/02/2018 | 15 mg | | | | 15 mg 15 mg, intravenous, EVERY | | 17:41 | | | | | 6 HOURS, 8 doses, First dose on | | PDT | | | | | 03/02/18 at 1800, Last dose on | | | | | | | Jasmyne 03/04/18 at 1200 | | | | | | + +-------+ +-------+---+---+ +-------+ +-------+---+---+ | Given | 03/03/2018 | 15 mg | | | | | 00:10 | | | | | | PDT | | | | +-------+ +-------+---+---+ | Given | 03/03/2018 | 15 mg | | | | | 06:19 | | | | | | PDT | | | | +-------+ +-------+---+---+ +---+---+ | | | +---+---+ + +---------+ + + +---+ | lactated Ringers IV 10 mL/hr, | New Bag | 03/01/2018 | 10 mL/hr | 10 mL/hr | | | intravenous, PROCEDURE | | 07:30 | | | | | CONTINUOUS, Starting Thu03/01/18 | | PDT | | | | | at 0615, Until Thu03/01/18 at 1410 | | | | | | + +---------+ + + +---+ +---+---+ | | | +---+---+ + +---------+ +-------+-------+---+ | lactated Ringers IV 150 mL/hr, | New Bag | 03/01/2018 | 150 | 150 | | | intravenous, CONTINUOUS, | | 12:30 | mL/hr | mL/hr | | | Starting 03/01/18 at 1245, | | PDT | | | | | Until 03/02/18 at 0800 | | | | | | + +---------+ +-------+-------+---+ + + +-------+-------+---+ | Rate/Dose Verify | 03/01/2018 | 150 | 150 | | | | 18:08 | mL/hr | mL/hr | | | | PDT | | | | + + +-------+-------+---+ +---+---+ | | | +---+---+ + + + +---------+---+---------+ | lidocaine (LIDODERM) 5 % patch | Applied | 03/02/2018 | 1 patch | | Abdomen | | 1 patch 1 patch, transdermal, | Patch | 08:41 | | | | | EVERY 24 HOURS, First dose on Tue | | PDT | | | [...] | metFORMIN (GLUCOPHAGE) tablet | Given | 03/01/2018 | 1,000 mg | | | | 1,000 mg 1,000 mg, oral, TWICE | | 22:31 | | | | | DAILY, First dose on Thu03/01/18 | | PDT | | | | | at 2100, Until Discontinued | | | | | | + +-------+ + +---+---+ +---+---+ | | | +---+---+ + +-------+ +-------+---+---+ | metoclopramide HCl (REGLAN) | Given | 03/01/2018 | 10 mg | | | | injection 10 mg 10 mg, | | 20:33 | | | | | intravenous, EVERY 6 HOURS, 4 | | PDT | | | | | doses, First dose on Thu03/01/18 | | | | | | | at 1415, Last dose on Thu03/02/18 | | | | | | | at 0815 | | | | | | + +-------+ +-------+---+---+ +-------+ +-------+---+---+ | Given | 03/02/2018 | 10 mg | | | | | 02:47 | | | | | | PDT | | | | +-------+ +-------+---+---+ | Given | 03/02/2018 | 10 mg | | | | | 08:41 | | | | | | PDT [...] 20:50 | | | | | on Thu03/01/18 [...] 4 mg, intravenous, EVERY 12 | | 06:35 | | | | | HOURS, 4 doses, First dose on | | PDT | | | | | 03/01/18 at 1730, Last dose on | | | | | | | 03/03/18 at 0530 | | | | | | + +-------+ +------+---+---+ +-------+ +------+---+---+ | Given | 03/02/2018 | 4 mg | | | | | 17:42 | | | | | | PDT | | | | +-------+ +------+---+---+ | Given | 03/03/2018 | 4 mg | | | | | 03:40 | | | | | | PDT | | | | +-------+ +------+---+---+ [...] +---------+---+---+ | promethazine (PHENERGAN) | Given | 03/01/2018 | 12.5 mg | | | | injection 6.25-12.5 mg 6.25-12.5 | | 12:51 | | | | | mg, intravenous, POSTPROCEDURE | | PDT | | | | | PRN, 1 dose, Starting Thu03/01/18 | | | | | | | at 0945, Until Discontinued, | | | | | | | [...] | thiamine (VITAMIN B-1) | Given | 03/02/2018 | 100 mg | | | | injection 100 mg 100 mg, | | 08:42 | | | | | intravenous, DAILY, 1 dose, First | | PDT | | | | | dose [...]
--- OUTSIDE RECORDS SUMMARY | ~2018-04-27 | XMS | Encounter Summary ---
Demographics + + + | Address | [address] | | | [place] [address] | + + + | Home Phone | | + + + | Preferred Language | Unknown | + + + | Marital Status | | + + + | Yarsanism Affiliation | Unknown | + + + | Race | Unknown | + + + | Ethnic Group | Unknown | + + + Author + + + | Author | [employer] | + + + | Organization | [facility] [employer] | + + + | Address [...] Team Providers + +------+ + | Care Locker Plant Attendant Name | Role | Phone | [...] + | 02/02/ | Refill | JUNO Columbia | Cheyanne Miner, | Medication Refill | | 2017 | | Cardiology Jesus | MA | | | | | [address] [facility] [address] | | | | | | [facility] [address] | | | | | | [place] [address] | | | | | | [phone] | | | +--------+--------+ + + + [...] | | | | | [place] [address] | | | | | | [phone] | | | | | | | | +--------+---------+ + + + as of this encounter Visit Diagnoses Not on filein this encounter"
--- OUTSIDE RECORDS SUMMARY | ~2018-04-27 | XMS | Encounter Summary ---
Demographics + + + | Address | [address] | | | [place] [address] | + + + | Home Phone [...] + | KENNY BERRY | ECON | [address] | | | | | [place], [place] | | | | | [address] | | + + + + + | MAXIMILIANO FARRELL | ECON | Unknown | | + + + + + Care Team Providers + +------+ + | Care Football Scout Name | Role | Phone | [...] Road | | | | | | [place], [place] | | | | | | [address] | | | +--------+ + + + [...] | 2017 | Visit | | [address] [facility] | | | | | | [address] | | | | | | [place], [place] | | | | | | [address] | | +--------+---------+ + + + | 05/27/ | Office | Surgery | Ronna Clarke, | | | 2017 | Visit | | ACNP [address] | | | | | | Ave [place], [place] | | | | | | [address] | | | | | | [phone] | | | | | | | | +--------+---------+ + + + | 05/27/ | Office | Pain Management | Demar Cueva, PhD | | | 2017 | Visit | | [address] | | | | | | [place] | | | | | | [address] | | | | | | [phone] | | | | | | | | +--------+---------+ + + + | 06/04/ | Office | Cardiology | Randell Franks, | | | 2017 | Visit | | MD [address] | | | | | | Ave [place], [place] | | | | | | [address] | | | | | | [phone] | | | | | | | | +--------+---------+ + + + as of this encounter Visit Diagnoses Not on filein this encounter"
--- OUTSIDE RECORDS SUMMARY | ~2018-04-27 | XMS | Encounter Summary ---
Demographics + + + | Address | [address] | | | [place] [address] | + + + | Home Phone | | + + + | Preferred Language | Unknown | + + + | Marital Status | | + + + | Rastafarian Affiliation | Unknown | + + + | Race | Unknown | + + + | Ethnic Group | Unknown | + + + Author + + + | Author | [employer] | + + + | Organization | [facility] [employer] | + + + | [...] Team Providers + +------+ + | Care Pst Manager Name | Role | Phone | + +------+ + | Fadi Goodrich DO | PCP | | + +------+ + Reason for Visit +--------+ + | Reason | Comments | +--------+ + | Other | PCP Notes 03/30/18 | +--------+ + Encounter Details +--------+ + + + + | Date | Type | Department | Care Team | Description | +--------+ + + + + | 04/21/ | Documentati | JUNO Cardoso | Cheyanne Miner, | Other (PCP Notes | | 2018 | on Only | Cardiology Jesus | SOIF | 03/30/18) | | | | [address] [facility] [address] | | | | | | [address] | | | | | | [place] [address] | | | | | | [phone] | | | +--------+ + + + [...] | | | | | [place] [address] | | | | | | [phone] | | | | | | | | +--------+---------+ + + + as of this encounter Visit Diagnoses Not on filein this encounter"
--- OUTSIDE RECORDS SUMMARY | ~2018-04-27 | XMS | Encounter Summary ---
Demographics + + + | Address | [address] | | | [place] [address] | + + + | Home Phone [...] + | KENNY BERRY | ECON | [address] | | | | | [place], [place] | | | | | [address] | | + + + + + | MAXIMILIANO FARRELL ECON | Unknown | | + + + + + Care Team Providers + +------+ + | Care Coordinate Measuring Machine Technician Name | Role | Phone | + +------+ + | Fadi Goodrich DO | PCP | | + +------+ + Encounter Details +--------+ + + + + | Date | Type | Department | Care Team | Description | +--------+ + + + + | 03/04/ | Telephone | Digestive Health | Ion Pandey, | | | 2018 | | Center [facility] 6th | MD [address] | | | | | Floor [address] | [facility] [place] | | | | | Ave Mailcode: [facility] | [address] | | | | | [facility] | | | | | | and Healing, 6th | | | | | | floor [place], [place] | | | | | | [address] | | | | | | | [...] Rd | | | | | | [place], [place] | | | | | | [address] | | +--------+---------+ + + + | 05/27/ | Office | Surgery | Ronna Clarke, | | | 2017 | Visit | | ACNP [address] | | | | | | [place], [place] | | | | | | [address] | | | | | | [phone] | | | | | | | | +--------+---------+ + + + | 05/27/ | Office | Pain Management | Demar Cueva, PhD | | | 2018 | Visit | | [address] | | | | | | [place], [place] | | | | | | [address] | | | | | | [phone] | | | | | | | | +--------+---------+ + + + | 06/04/ | Office | Cardiology | Randell Franks, | | | 2017 | Visit | | MD [address] | | | | | | [place], [place] | | | | | | [address] | | | | | | [phone] | | | | | | | | +--------+---------+ + + + as of this encounter Visit Diagnoses Not on filein this encounter"
--- OUTSIDE RECORDS SUMMARY | ~2018-04-27 | XMS | Encounter Summary ---
Demographics + + + | Address | [address] | | | [place] [address] | + + + | Home Phone [...] + | KENNY BERRY | ECON | [address] | | | | | [place], [place] | | | | | [address] | | + + + + + | MAXIMILIANO FARRELL | ECON | Unknown | | + + + + + Care Team Providers + +------+ + | Care Foreign Service Officer Name | Role | Phone [...] Road | | | | | | [place], [place] | | | | | | [address] | | | +--------+ + + + [...] | 2017 | Visit | | [address] [facility] | | | | | | [address] | | | | | | [place], [place] | | | | | | [address] | | +--------+---------+ + + + | 05/27/ | Office | Surgery | Ronna Clarke, | | | 2017 | Visit | | ACNP [address] | | | | | | Ave [place], [place] | | | | | | [address] | | | | | | [phone] | | | | | | | | +--------+---------+ + + + | 05/27/ | Office | Pain Management | Demar Cueva, PhD | | | 2017 | Visit | | [address] | | | | | | [place] | | | | | | [address] | | | | | | [phone] | | | | | | | | +--------+---------+ + + + | 06/04/ | Office | Cardiology | Randell Franks, | | | 2017 | Visit | | MD [address] | | | | | | Ave [place], [place] | | | | | | [address] | | | | | | [phone] | | | | | | | | +--------+---------+ + + + as of this encounter Visit Diagnoses Not on filein this encounter"
--- OUTSIDE RECORDS SUMMARY | ~2018-04-27 | XMS | Clinical Summary ---
Demographics + + + | Address | [address] | | | [place] [address] | + + + | Home Phone [...] Team Providers + +------+ + | Care Docketing Specialist Name | Role | Phone | [...]
--- OUTSIDE RECORDS SUMMARY | ~2018-04-27 | XMS | Encounter Summary ---
Demographics + + + | Address | [address] | | | [place] [address] | + + + | Home Phone [...] + | KENNY BERRY | ECON | [address] | | | | | [place], [place] | | | | | [address] | | + + + + + | MAXIMILIANO FARRELL ECON | Unknown | | + + + + + Care Team Providers + +------+ + | Care Senior Ui Developer Name | Role | Phone [...] | 2018 | | Center [facility] 6th | ACNP [address] | | | | | Floor [address] | Ave [place], [place] | | | | | [place] Mailcode: CH4S | [address] | | | | | [facility] | [phone] | | | | | and Healing, 6th | | | | | | floor [place], [place] | | | | | | [address] | | | | | | [phone] | | | +--------+ + + + [...] | | | | | | [place], [place] | | | | | | [address] | | +--------+---------+ + + + | 05/27/ | Office | Surgery | Ronna Clarke, | | | 2017 | Visit | | ACNP [address] | | | | | | [place], [place] | | | | | | [address] | | | | | | [phone] | | | | | | | | +--------+---------+ + + + | 05/27/ | Office | Pain Management | Demar Cueva, PhD | | | 2018 | Visit | | [address] | | | | | | [place], [place] | | | | | | [address] | | | | | | [phone] | | | | | | | | +--------+---------+ + + + | 06/04/ | Office | Cardiology | Randell Franks, | | | 2017 | Visit | | MD [address] | | | | | | [place], [place] | | | | | | [address] | | | | | | [phone] | | | | | | | | +--------+---------+ + + + as of this encounter Visit Diagnoses Not on filein this encounter"
--- OUTSIDE RECORDS SUMMARY | ~2018-04-27 | XMS | Encounter Summary ---
Demographics + + + | Address | [address] | | | [place] [address] | + + + | Home Phone [...] + | KENNY BERRY | ECON | [address] | | | | | [place], [place] | | | | | [address] | | + + + + + | MAXIMILIANO FARRELL | ECON | Unknown | | + + + + + Care Team Providers + +------+ + | Care Sterile Processing Technician Name | Role | Phone | [...] | Center at [facility] 6th | [address] | obesity ([facility]), BMI | | | | Floor [address] | [address] | 88 (Primary Dx); | | | | [place] Mailcode: | [place], [place] | Type 2 diabetes | | | | [address] for | [address] | mellitus without | | | | Health and Healing | | complication, with | | | | [place], [place] | | long-term current | | | | [address] | | use of insulin | | | | [phone] | | ([facility]); S/P gastric | | | [...] by: DO [address] [place], [place] [address] Documented time of visit: 1:30 to 2:00 (30 minutes bamp-hd-nxdu with patient) Surgery: Gastric Bypass Date of [...] multivitamin & mineral (with iron) supplement, 2/day -7641-2755 mg calcium citrate with vitamin D/day (take [...] in [address],[place] Pager# [phone] Phone: [phone] in this encounter Plan of Treatment +--------+---------+ + + + | Date | Type | Specialty | Care Team | Description | +--------+---------+ + + + | 05/27/ | Office | Nutrition | Tejas Cevallos, | | | 2018 | Visit | | [address] [facility] | | | | | | [address] | | | | | | [place], [place] | | | | | | [address] | | +--------+---------+ + + + | 05/27/ | Office | Surgery | Ronna Clarke, | | | 2017 | Visit | | ACNKat [address] | | | | | | [place], [place] | | | | | | [address] | | | | | | [phone] | | | | | | | | +--------+---------+ + + + | 05/27/ | Office | Pain Management | Demar Cueva, PhD | | | 2017 | Visit | | [address] | | | | | | [place], [place] | | | | | | [address] | | | | | | [phone] | | | | | | | | +--------+---------+ + + + | 06/04/ | Office | Cardiology | Randell Franks, | | | 2017 | Visit | | [address] | | | | | | [place], [place] | | | | | | [address] | | | | | | [phone] | | | | | | | | +--------+---------+ + + + as of this encounter Procedures + +--------+ + + + | Procedure Name | Priori | Date/Time | Associated Diagnosis | Comments | | | ty | | | | + +--------+ + + + | [facility] MNT RE-ASSESSMNT | Routin | 03/10/2018 | [...] | | | use of insulin ([facility]) | | | | [...]
--- OUTSIDE RECORDS SUMMARY | ~2018-04-27 | XMS | Encounter Summary ---
Demographics + + + | Address | [address] | | | [place] [address] | + + + | Home Phone [...] + | KENNY BERRY | ECON | [address] | | | | | [place], [place] | | | | | [address] | | + + + + + | MAXIMILIANO FARRELL | ECON | Unknown | | + + + + + Care Team Providers + +------+ + | Care Recruitment Consultant Name | Role | Phone | [...] | | | 2017 | Event | [facility] | Jason Murcia MD | | | | | Admitting Desk | [address] | | | | | Located on the 9th [facility], | | | | | floor [address] [facility] [address] | | | | | [facility] | [phone] | | | | | [place], [place] | | | | | | [address] | | | +--------+ + + + [...] Rd | | | | | | [place] | | | | | | [address] | | +--------+---------+ + + + | 05/27/ | Office | Surgery | Ronna Clarke, | | | 2017 | Visit | | ACN [address] | | | | | | [place] | | | | | | [address] | | | | | | [phone] | | | | | | | | +--------+---------+ + + + | 05/27/ | Office | Pain Management | Demar Cueva, PhD | | | 2017 | Visit | | [address] | | | | | | [place], [place] | | | | | | [address] | | | | | | [phone] | | | | | | | | +--------+---------+ + + + | 06/04/ | Office | Cardiology | Randell Franks, | | | 2017 | Visit | | [address] | | | | | | [place], [place] | | | | | | [address] | | | | | | [phone] | | | | | | | | +--------+---------+ + + + as of this encounter Johnathon CASH (03/01/2018 9:42 AM) + + + | Narrative | Performed At | + + + | Jason aBlbuena MD 03/01/2018 9:43 AM Procedure | | [...]
--- OUTSIDE RECORDS SUMMARY | ~2018-04-27 | XMS | Encounter Summary ---
Demographics + + + | Address | [address] | | | [place] [address] | + + + | Home Phone [...] + | KENNY BERRY | ECON | [address] | | | | | [place], [place] | | | | | [address] | | + + + + + | MAXIMILIANO FARRELL | ECON | Unknown | | + + + + + Care Team Providers + +------+ + | Care Power Marketer Name | Role | Phone | + +------+ + | Fadi Goodrich DO | PCP | | + +------+ + Reason for Visit + + + | Reason | Comments | + + + | Bariatric Nutrition | | + + + Consultation (Routine) + + + + + + + | Status | Reason | Specialty | Diagnoses / | Referred By | Referred To | | | | | Procedures | Contact | Contact | + + + + + + + | Authorized | BAR: | Nutrition | Diagnoses | Tiny, | Amadeo, | | | Scheduled | | Essential | MD Randell | HA Roldan | | | with CIGARETTE MACHINE OPERATOR | | hypertension | [address] | [address] | | | | | Right | [address] | [address] | | | | | heart | [place], [place] | Ha [place], | | | | | failure | [address] | [place] | | | | | ([facility]) Type | Phone: | [address] | | | | | 2 diabetes | [phone] | | | | | | mellitus | Fax: | | | | | | without | [phone] | | | | | | complication | | | | | | | , with | | | | | | | long-term | | | | | | | current use | | | | | | | of insulin | | | | | | | ([facility]) | | | + + + + + + + Encounter Details +--------+---------+ + + + | Date | Type | Department | Care Team | Description | +--------+---------+ + + + | 04/01/ | Office | Digestive Health | Dione Andre, | History of Frandy-en-Y | | 2018 | Visit | Center at [facility] 6th | [address] | gastric bypass | | | | Floor [address] | [address] | (Primary Dx); | | | | [place] Mailcode: | [place], [place] | 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[address] for | [address] | with insulin therapy | | | | Health and Healing | | ([facility]) | | | | [place], [place] | | | | | | [address] | | | | | | [phone] | | | +--------+---------+ + + + [...] kg (348 lb | 04/01/2018 10:36 AM PDT | | | 11.2 oz) | | + + + + | Height | - | - | + + + + | Body Mass Index | 70.43 | 04/01/2018 10:36 AM PDT | + + + + [...] encounter Progress Notes Dione Andre, HA - 04/01/2018 10:30 AM PDTFormatting of this note may be different from the original. Nutrition Counseling: Post-op Bariatric Surgery Follow-Up Patient referred by: Randell Franks MD [address] [place] [address] Documented time of visit: 10:33 to 10:55 (22 minutes wzhe-af-xfhy with patient) Surgery: Gastric Bypass Date of [...] welsh yogurt-light and fit, protein bar from [employer]. Unable to keep protei n shakes down. Fluid choices: water-4-5 bottles per day Supplementation: Flinstones, iron, vitamin D, vitamin C, Citracal supplement x 2 in the mor eusebio and 2 at night, magnesium, potassium, I70-iqxtazdd today Assessment: Vomiting likely due to volume [...] multivitamin & mineral (with iron) supplement, 2/day -1459-9487 mg calcium citrate with vitamin D/day (take in divided doses, not within 2 hour s of multivitamin or iron supplement) -500 mcg/day sublingual B12 supplement (or monthly injections) Continued to reinforce importance of mindful eating. Continue to increase physical activity. Follow up in [address],[place] Pager# [phone] Phone: [phone] in this encounter Plan of Treatment +--------+---------+ + + + | Date | Type | Specialty | Care Team | Description | +--------+---------+ + + + | 05/27/ | Office | Nutrition | Tejas Cevallos, | | | 2018 | Visit | | [address] | | | | | | [address] | | | | | | [place], [place] | | | | | | [address] | | +--------+---------+ + + + | 05/27/ | Office | Surgery | Ronna Clarke, | | | 2017 | Visit | | ACNP [address] | | | | | | Ave [place], [place] | | | | | | [address] | | | | | | [phone] | | | | | | | | +--------+---------+ + + + | 05/27/ | Office | Pain Management | Demar Cueva, PhD | | | 2017 | Visit | | [address] | | | | | | [place], [place] | | | | | | [address] | | | | | | [phone] | | | | | | | | +--------+---------+ + + + | 06/04/ | Office | Cardiology | Randlel Franks, | | | 2018 | Visit | | MD [address] | | | | | | Ave [place], [place] | | | | | | [address] | | | | | | [phone] | | | | | | | | +--------+---------+ + + + as of this encounter Procedures + +--------+ + + + | Procedure Name | Priori | Date/Time | Associated Diagnosis | Comments | | | ty | | | | + +--------+ + + + | [place] MNT RE-ASSESSMNT | Routin | 04/01/2018 | History of | | | X15MIN | e | 12:23 PM | Frandy-en-Y gastric | | | | | PDT | bypass Diabetes | | | | | | mellitus with | | | | | | insulin therapy | | | | | | ([facility]) | | + +--------+ + + + in this encounter Visit Diagnoses + + | Diagnosis | + + | History of Frandy-en-Y gastric bypass - Primary | + + | Bariatric surgery status | + + | Diabetes mellitus with insulin therapy (HCC) | + +
--- OUTSIDE RECORDS SUMMARY | ~2018-04-27 | XMS | Encounter Summary ---
Demographics + + + | Address | [address] | | | [place] [address] | + + + | Home Phone [...] + | KENNY BERRY | ECON | [address] | | | | | [place], [place] | | | | | [address] | | + + + + + | MAXIMILIANO FARRELL | ECON | Unknown | | + + + + + Care Team Providers + +------+ + | Care Obstetrics Teacher Name | Role | Phone | [...] | | | | | floor [address] [facility] | | | | | | [facility] | | | | | | [place], [place] | | | | | | [address] | | | +--------+ + + + [...] | 2018 | Visit | | [address] [facility] | | | | | | [address] | | | | | | [place] | | | | | | [address] | | +--------+---------+ + + + | 05/27/ | Office | Surgery | Ronna Clarke, | | | 2017 | Visit | | ACNP [address] | | | | | | Ave [place], [place] | | | | | | [address] | | | | | | [phone] | | | | | | | | +--------+---------+ + + + | 05/27/ | Office | Pain Management | Demar Cueva, PhD | | | 2017 | Visit | | [address] | | | | | | [place] | | | | | | [address] | | | | | | [phone] | | | | | | | | +--------+---------+ + + + | 06/04/ | Office | Cardiology | Randell Franks, | | | 2017 | Visit | | MD [address] | | | | | | [place], [place] | | | | | | [address] | | | | | | [phone] | | | | | | | | +--------+---------+ + + + as of this encounter Visit Diagnoses Not on filein this encounter"
--- OUTSIDE RECORDS SUMMARY | ~2018-04-27 | XMS | Encounter Summary ---
Demographics + + + | Address | [address] | | | [place] [address] | + + + | Home Phone | | + + + | Preferred Language | Unknown | + + + | Marital Status | | + + + | Taoist Affiliation | Unknown | + + + | Race | Unknown | + + + | Ethnic Group | Unknown | + + + Author + + + | Author | [facility] [employer] [employer] [facility] | + + + | Organization | [facility] [employer] [facility] | + + + | Address [...] Providers + +------+ + | Care Railroad Car Letterer Name | Role | Phone | + [...] | on Only | Cardiology Jesus | SOFI | 03/30/18) | | | | [address] [facility] [address] | | | | | | [address] | | | | | | [place] [address] | | | | | | [phone] | | | +--------+ + + + [...] | | | | | [place] [address] | | | | | | [phone] | | | | | | | | +--------+---------+ + + + as of this encounter Visit Diagnoses Not on filein this encounter"
--- OUTSIDE RECORDS SUMMARY | ~2018-04-27 | XMS | Encounter Summary ---
Demographics + + + | Address | [address] | | | [place] [address] | + + + | Home Phone [...] + | KENNY BERRY | ECON | [address] | | | | | [place], [place] | | | | | [address] | | + + + + + | MAXIMILIANO FARRELL | ECON | Unknown | | + + + + + Care Team Providers + +------+ + | Care Accounting Coordinator Name | Role | Phone | [...] Road | | | | | | [place], [place] | | | | | | [address] | | | +--------+ + + + [...] | 2018 | Visit | | [address] [facility] | | | | | | [address] | | | | | | [place], [place] | | | | | | [address] | | +--------+---------+ + + + | 05/27/ | Office | Surgery | Ronna Clarke, | | | 2017 | Visit | | ACNP [address] | | | | | | [place] | | | | | | [address] | | | | | | [phone] | | | | | | | | +--------+---------+ + + + | 05/27/ | Office | Pain Management | Demar Cueva, PhD | | | 2017 | Visit | | [address] | | | | | | [place] | | | | | | [address] | | | | | | [phone] | | | | | | | | +--------+---------+ + + + | 06/04/ | Office | Cardiology | Randell Franks, | | | 2017 | Visit | | MD [address] | | | | | | [place], [place] | | | | | | [phone] | | | | | | [phone] | | | | | | | | +--------+---------+ + + + as of this encounter Visit Diagnoses Not on filein this encounter"
--- OUTSIDE RECORDS SUMMARY | ~2018-04-27 | XMS | Encounter Summary ---
Demographics + + + | Address | [address] | | | [place] [address] | + + + | Home Phone | | + + + | Preferred Language | Unknown | + + + | Marital Status | | + + + | Advent Affiliation | Unknown | + + + | Race | Unknown | + + + | Ethnic Group | Unknown | + + + Author + + + | Author | [facility] | + + + | Organization | [facility] | + + + | Address [...] Team Providers + +------+ + | Care Disaster Response Director Name | Role | Phone | + +------+ + | Fadi Goodrich DO | PCP | | + +------+ + Reason for Visit +--------+ + | Reason | Comments | +--------+ + | Other | [facility] Notes 11/23/17 | +--------+ + Encounter Details +--------+ + + + + | Date | Type | Department | Care Team | Description | +--------+ + + + + | 04/26/ | Documentati | JUNO Cardoso | Cheyanne Miner, | Other ([facility] | | 2018 | on Only | Cardiology Sarah | MA | ED Notes 11/23/17) | | | | [address] | | | | | | [address] | | | | | | [place] [address] | | | | | | [phone] | | | +--------+ + + + [...] [address]yer | | | | | | [place] [address] | | | | | | [phone] | | | | | | | | +--------+---------+ + + + as of this encounter Visit Diagnoses Not on filein this encounter"
--- OUTSIDE RECORDS SUMMARY | ~2018-04-27 | XMS | Encounter Summary ---
Demographics + + + | Address | [address] | | | [place] [address] | + + + | Home Phone [...] + | KENNY BERRY | ECON | [address] | | | | | [place], [place] | | | | | [address] | | + + + + + | MAXIMILIANO FARRELL | ECON | Unknown | | + + + + + Care Team Providers + +------+ + | Care Customer Success Director Name | Role | Phone | [...] | 03/01/ | Hospital | [facility] [address] | Ion Castanon, | | | 2018 - | Encounter | [address] | [address] | | | | | [place] [address] | [place], [place] | | | 03/03/ | | [phone] | [address] | | | 2017 | | | [phone] | | | | | | | [...] note may be different from jennifer mendiola. [facility] RED SURGERY INPATIENT DISCHARGE SUMMARY Author: KAIN [...] to a bariatric full liquid diets. Our [facility] dietitian was consulted and they [...] at minimum. 5. Follow with PCP for Kai [place] within 1 - 2 weeks of discharge [...] mg by mouth two times daily. CALCIUM CRB&[id number]-L5-MTR00-GENIS ORAL Take 2 tablets by mouth two [...] or Kefir, [place]oney[place] Yogurt, and Chioban i Ghanaian Yogurt are common brands with beneficial probiotics. [...] are available over the counter at most [facility] [employer] stores. Nausea/Vomiting/Difficulty Swallowing Nausea/Vomiting/Difficulty swallowing: Could be [...] hours per your instructions. Some medications, like Henning, have Tylenol in it. Make sure you [...] hours by calling the surgery office at [phone]. - After hours, weekends and holidays, you may call the hospital electronic pagination system operator at [phone] an d have the combat information center officer Red Surgery Team paged. OTHER DISCHARGE ORDERS [...] at minimum. 5. Follow with PCP for Kai Wh[place] within 1 - 2 weeks of discharge [...] 03/10/2018 1:30 PM [facility] at [facility] 6th Floor [phone] FO OD AND NUT 03/10/2018 3:05 PM [facility] at [facility] 6th Floor [phone] [facility] 04/01/2018 10:30 AM [facility] Dig[facility]ive [facility] at [facility] 6th Floor [phone] FO OD AND NUT 04/01/2018 11:00 AM Ion Castanon [facility] 6th Floor [phone] [facility] 05/27/2018 2:30 PM [facility] at [facility] 6th Floor [phone] FO OD AND NUT 05/27/2018 3:05 PM [facility] at [facility] 6th Floor [phone] [facility] 05/27/2018 4:30 PM [facility] at [facility] 15th Floor [phone] Comprehensiv 06/04/2018 10:35 RIOS Franks Cardiology Preventive at [facility] [phone] Cardiology Discharging Physician: KAIN Agee Attending Physician: Ion Castanon MD [facility] Surgery Pager# [phone] 9:50 AM 03/03/2018 in this encounter Medications [...] by | | | | | | [id number]-[id number]-GEN | mouth two times | | | [...] | | | | | | ([facility]) | constipation. | | | [...] discharge 03/03/18 PARTHA Calixto MS3 [facility] [employer] Medicine Demarcus Alas MD - [...] for care ride home (pt lives in [place]) Demarcus Alas M.D. General Surgery Resident PGY-1 Pager: [phone] Ion Castanon MD - 03/02/2018 10:00 AM [...] | 2017 | Visit | | [address] | | | | | | [address] | | | | | | [place], [place] | | | | | | [address] | | +--------+---------+ + + + | 05/27/ | Office | Surgery | Ronna Clarke, | | | 2017 | Visit | | KAIN [address] | | | | | | Ave [place], [place] | | | | | | [address] | | | | | | [phone] | | | | | | | | +--------+---------+ + + + | 05/27/ | Office | Pain Management | Demar Cueva, PhD | | | 2017 | Visit | | [address] | | | | | | [place], [place] | | | | | | [address] | | | | | | [phone] | | | | | | | | +--------+---------+ + + + | 06/04/ | Office | Cardiology | Randell Franks, | | | 2018 | Visit | | MD [address] | | | | | | [place], [place] | | | | | | [address] | | | | | | [phone] | | | | | | | [...] | | PDT | over, adult ([facility]) | results section. | + +--------+ + + + | CAPILLARY BLOOD | Routin | 03/03/2018 | Morbid obesity | Results for this | | GLUCOSE (NO CHG), | e | 7:54 AM | with BMI of 70 and | procedure are in the | | POC | | PDT | over, adult ([facility]) | results section. | + +--------+ + + + | CAPILLARY BLOOD | Routin | 03/03/2018 | Morbid obesity | Results for this | | GLUCOSE (NO CHG), | e | 6:28 AM | with BMI of 70 and | procedure are in the | | POC | | PDT | over, adult ([facility]) | results section. | + +--------+ + + + | CAPILLARY BLOOD | Routin | 03/02/2018 | Morbid obesity | Results for this | | GLUCOSE (NO CHG), | e | 9:17 PM | with BMI of 70 and | procedure are in the | | POC | | PDT | over, adult ([facility]) | results section. | + +--------+ + + + | CAPILLARY BLOOD | Routin | 03/02/2018 | Morbid obesity | Results for this | | GLUCOSE (NO CHG), | e | 6:50 PM | with BMI of 70 and | procedure are in the | | POC | | PDT | over, adult ([facility]) | results section. | + +--------+ + + + | CAPILLARY BLOOD | Routin | 03/02/2018 | Morbid obesity | Results for this | | GLUCOSE (NO CHG), | e | 3:46 PM | with BMI of 70 and | procedure are in the | | POC | | PDT | over, adult ([facility]) | results section. | + +--------+ + + + | CAPILLARY BLOOD | Routin | 03/02/2018 | Morbid obesity | Results for this | | GLUCOSE (NO CHG), | e | 2:36 PM | with BMI of 70 and | procedure are in the | | POC | | PDT | over, adult ([facility]) | results section. | + +--------+ + + + | CAPILLARY BLOOD | Routin | 03/02/2018 | Morbid obesity | Results for this | | GLUCOSE (NO CHG), | e | 1:33 PM | with BMI of 70 and | procedure are in the | | POC | | PDT | over, adult ([facility]) | results section. | + +--------+ + + + | CAPILLARY BLOOD | Routin | 03/02/2018 | Morbid obesity | Results for this | | GLUCOSE (NO CHG), | e | 11:36 AM | with BMI of 70 and | procedure are in the | | POC | | PDT | over, adult ([facility]) | results section. | + +--------+ + + + | CAPILLARY BLOOD | Routin | 03/02/2018 | Morbid obesity | Results for this | | GLUCOSE (NO CHG), | e | 10:32 AM | with BMI of 70 and | procedure are in the | | POC | | PDT | over, adult ([facility]) | results section. | + +--------+ + + + | CAPILLARY BLOOD | Routin | 03/02/2018 | Morbid obesity | Results for this | | GLUCOSE (NO CHG), | e | 9:23 AM | with BMI of 70 and | procedure are in the | | POC | | PDT | over, adult ([facility]) | results section. | + +--------+ + + + | CAPILLARY BLOOD | Routin | 03/02/2018 | Morbid obesity | Results for this | | GLUCOSE (NO CHG), | e | 8:36 AM | with BMI of 70 and | procedure are in the | | POC | | PDT | over, adult ([facility]) | results section. | + +--------+ + + + | CAPILLARY BLOOD | Routin | 03/02/2018 | Morbid obesity | Results for this | | GLUCOSE (NO CHG), | e | 7:35 AM | with BMI of 70 and | procedure are in the | | POC | | PDT | over, adult ([facility]) | results section. | + +--------+ + + + | CAPILLARY BLOOD | Routin | 03/02/2018 | Morbid obesity | Results for this | | GLUCOSE (NO CHG), | e | 6:33 AM | with BMI of 70 and | procedure are in the | | POC | | PDT | over, adult ([facility]) | results section. | + +--------+ + + + | CAPILLARY BLOOD | Routin | 03/02/2018 | Morbid obesity | Results for this | | GLUCOSE (NO CHG), | e | 5:28 AM | with BMI of 70 and | procedure are in the | | POC | | PDT | over, adult ([facility]) | results section. | + +--------+ + + + | CAPILLARY BLOOD | Routin | 03/02/2018 | Morbid obesity | Results for this | | GLUCOSE (NO CHG), | e | 4:36 AM | with BMI of 70 and | procedure are in the | | POC | | PDT | over, adult ([facility]) | results section. | + +--------+ + + + | CAPILLARY BLOOD | Routin | 03/02/2018 | Morbid obesity | Results for this | | GLUCOSE (NO CHG), | e | 2:46 AM | with BMI of 70 and | procedure are in the | | POC | | PDT | over, adult ([facility]) | results section. | + +--------+ + + + | CAPILLARY BLOOD | Routin | 03/02/2018 | Morbid obesity | Results for this | | GLUCOSE (NO CHG), | e | 12:32 AM | with BMI of 70 and | procedure are in the | | POC | | PDT | over, adult ([facility]) | results section. | + +--------+ + + + | CAPILLARY BLOOD | Routin | 03/01/2018 | Morbid obesity | Results for this | | GLUCOSE (NO CHG), | e | 10:31 PM | with BMI of 70 and | procedure are in the | | POC | | PDT | over, adult ([facility]) | results section. | + +--------+ + + + | CAPILLARY BLOOD | Routin | 03/01/2018 | Morbid obesity | Results for this | | GLUCOSE (NO CHG), | e | 8:21 PM | with BMI of 70 and | procedure are in the | | POC | | PDT | over, adult ([facility]) | results section. | [...] | | PDT | over, adult ([facility]) | results section. | + +--------+ + + + | CAPILLARY BLOOD | Routin | 03/01/2018 | Morbid obesity | Results for this | | GLUCOSE (NO CHG), | e | 3:31 PM | with BMI of 70 and | procedure are in the | | POC | | PDT | over, adult ([facility]) | results section. | + +--------+ + + + | CAPILLARY BLOOD | Routin | 03/01/2018 | Morbid obesity | Results for this | | GLUCOSE (NO CHG), | e | 3:29 PM | with BMI of 70 and | procedure are in the | | POC | | PDT | over, adult ([facility]) | results section. | + +--------+ + + + | CAPILLARY BLOOD | Routin | 03/01/2018 | Morbid obesity | Results for this | | GLUCOSE (NO CHG), | e | 2:30 PM | with BMI of 70 and | procedure are in the | | POC | | PDT | over, adult ([facility]) | results section. | + +--------+ + + + | CAPILLARY BLOOD | Routin | 03/01/2018 | Morbid obesity | Results for this | | GLUCOSE (NO CHG), | e | 1:35 PM | with BMI of 70 and | procedure are in the | | POC | | PDT | over, adult ([facility]) | results section. | + +--------+ + + + | CAPILLARY BLOOD | Routin | 03/01/2018 | Morbid obesity | Results for this | | GLUCOSE (NO CHG), | e | 12:16 PM | with BMI of 70 and | procedure are in the | | POC | | PDT | over, adult ([facility]) | results section. | [...] | | PDT | over, adult ([facility]) | results section. | + +--------+ + + + | LAPAROSCOPIC | Electi | 03/01/2018 | Morbid obesity | | | NISH-EN-Y GASTRIC | ve | 8:30 AM | ([facility]) | | | BYPASS [...] AMES | [address] | [place], [place] | | | [facility] | [facility] | [address] | | | TESTS | | | [...] + + | NKECHI AMES | [address] [facility] [address] | [place], [place] | | | [place] [facility]INT OF CARE | [address] | [address] | | | TESTS | | | [...] KWAKU | [address] | [place], [place] | | | [place] [facility] | [address] | [address] | | | TESTS | | | [...] AMES | [address] | [place], [place] | | | [place], POINT OF CARE | [facility] | [address] | | | TESTS | | | [...] AMES | [address] | [place], [place] | | | [place] [facility]INT OF CARE | [address] | [address] | | | TESTS | | | [...] AMES | [address] | [place], [place] | | | [facility] OF JAKY | [facility] | [address] | | | TESTS | | | [...] AMES | [address] | [place], [place] | | | JUST[facility] OF J[place] | [address] | [address] | | | TESTS | | | [...] KWAKU | [address] | [place], [place] | | | [place] [facility]INT [facility]ARE | [address] | [address] | | | TESTS | | | [...] YAKOVAM | [address] | [place], [place] | | | [place] POINT OF CARE | [address] | [address] | | | TESTS | | | [...] NKECHI AMES | [address] | [place], [place] | | | [facility] OF CARE | [facility] | [address] | | | TESTS | | | [...] MARQUAM | [address] | [place], [place] | | | [place] POINT OF CARE | [facility] | [address] | | | TESTS | | | [...] AMES | [address] | [place], [place] | | | [facility] OF CARE | [address] | [address] | | | TESTS | | | [...] AMES | [address] | [place], [place] | | | [place] POINT OF CARE | [address] | [address] | | | TESTS | | | [...] MARKAMILLA | [address] | [place], [place] | | | [facility] OF CARE | [address] | [address] | | | TESTS | | | [...] - MARQUAM | [address] | [place], [place] | | | [place] POINT OF CARE | [address] | [address] | | | TESTS | | | [...] AMES | [address] | [place], [place] | | | JUST[facility] OF CARE | [address] | [address] | | | TESTS | | | [...] AMES | [address] | [place], [place] | | | [place] [facility] | [address] | [address] | | | TESTS | | | [...] + + + | NKECHI AMES | [address] | [place], [place] | | | [facility] OF CARE | [facility] | [address] | | | TESTS | | | [...] AMES | [address] | [place], [place] | | | [place] POINT OF CARE | [address] | [address] | | | TESTS | | | [...] MARKAMILLA | [address] | [place], [place] | | | [facility] OF CARE | [address] | [address] | | | TESTS | | | [...] AMES | [address] | [place], [place] | | | [place] POINT OF CARE | [facility] | [address] | | | TESTS | | | [...] AMES | [address] | [place], [place] | | | [facility] OF CARE | [facility] | [address] | | | TESTS | | | [...] AMES | [address] | [place], [place] | | | JUST[facility]WN OF JAKY | [address] | [address] | | | TESTS | | | [...] AMES | [address] | [place], [place] | | | [facility] POINT OF CARE | [address] | [address] | | | TESTS | | | [...] MARQUAM | [address] | [place], [place] | | | [place] POINT OF CARE | [address] | [address] | | | TESTS | | | [...] + + | NKECHI AMES | [address] [facility] [address] | [place], [place] | | | [facility] [facility] | [address] | [address] | | | TESTS | | | | + + + + + EGD (ESOPHAGOGASTRODUODENOSCOPY) (03/01/2018 11:21 AM) + + + | Narrative | Performed At | + + + | Ion Castanon MD 03/01/2018 12:25 PM Date of Procedure: | | | 03/01/18 Primary Surgeon: Ion Castanon MD Co Surgeon or | | | religious assistant: Eldon Gonzalez MD, Chief Resident Alexx [...] | | | divided with 60 mm [place] stapler with white load and the distal [...] created in each limb and a 60mm [place] stapler | | | with white load was fired to create a [id number]-wuov | | | jejunojejunostomy. The anastamosis was confirmed to be widely | | | patent and hemostatic. The common enterotomy was closed by | | | placing 2 stay sutures along the enterotomy for retraction and | | | firing an [place] 60mm stapler with white load across the [...] was entered. The 60mm | | | [place] stapler with blue load was placed and [...] the 60mm stapler. The | | | [place] was then fired longitudinally towards the angle of His to | | | create the gastric pouch, leaving the gastrotomy from foreign body | | | removal, on the pouch. Dissection was performed retrogastric to | | | connect posterior and anterior dissection planes and ensure adequate | | | fundus exclusion. Additional fires of the [place] stapler were | | | performed with [...] ooze were controlled with 5 mm clip wrapping checker. A 25mm Orvil | | | was [...] The jejunal enterotomy was closed with 60mm [place] | | | stapler with a white [...] was present as my | | | religious assistant for the entire procedure, given the technically | | | challenging nature of this procedure. She assisted in all critical | | | steps of the procedure. Dr. Gonzalez was present for endoscopy at the | | | end of the procedure. Ion Castanon MD, FACS, [facility] | | | Bariatric Surgery [...] MD Co Surgeon or | | | religious assistant: Eldon Gonzalez MD, Chief Resident Alexx [...] | | | divided with 60 mm [place] stapler with white load and the distal [...] created in each limb and a 60mm [place] stapler | | | with white load was fired to create a tacs-zu-beud | | | jejunojejunostomy. The anastamosis was confirmed to be widely | | | patent and hemostatic. The common enterotomy was closed by | | | placing 2 stay sutures along the enterotomy for retraction and | | | firing an [place] 60mm stapler with white load across the [...] was entered. The 60mm | | | [place] stapler with blue load was placed and [...] the 60mm stapler. The | | | [place] was then fired longitudinally towards the angle of His to | | | create the gastric pouch, leaving the gastrotomy from foreign body | | | removal, on the pouch. Dissection was performed retrogastric to | | | connect posterior and anterior dissection planes and ensure adequate | | | fundus exclusion. Additional fires of the [place] stapler were | | | performed with [...] ooze were controlled with 5 mm clip wrapping checker. A 25mm Orvil | | | was [...] The jejunal enterotomy was closed with 60mm [place] | | | stapler with a white [...] was present as my | | | religious assistant for the entire procedure, given the technically | | | challenging nature of this procedure. She assisted in all critical | | | steps of the procedure. Dr. Gonzalez was present for endoscopy at the | | | end of the procedure. Ion Castanon MD, FACS, [facility] | | | Bariatric Surgery [...] Louise KWAKU | [address] | [place], [place] | | | [place] [address]WN | [address] | [address] | | | TESTS | | | [...]
--- OUTSIDE RECORDS SUMMARY | ~2018-04-27 | XMS | Encounter Summary ---
Demographics + + + | Address | [address] | | | [place] [address] | + + + | Home Phone [...] + | KENNY BERRY | ECON | [address] | | | | | [place], [place] | | | | | [address] | | + + + + + | MAXIMILIANO FARRELL | ECON | Unknown | | + + + + + Care Team Providers + +------+ + | Care Senior Accounting Specialist Name | Role | Phone | [...] | HA Roldan | | | with GRAIN MILLER HELPER | | hypertension | [address] | [address] | | | | | Right | [address] | [address] | | | | | heart | [place], [place] | [place], | | | | | failure | [address] | [place] | | | | | ([facility]) Type | Phone: | [phone] | | | | | 2 diabetes | [phone] | | | | | | mellitus | Fax: | | | | | | without | [phone] | | | | | | complication | | | | | | | , with | | | | | | | long-term | | | | | | | current use | | | | | | | of insulin | | | | | | | ([facility]) | | | + + + + + + + Encounter Details +--------+---------+ + + + | Date | Type | Department | Care Team | Description | +--------+---------+ + + + | 04/01/ | Office | Digestive Health | Dione Andre, | History of Frandy-en-Y | | 2018 | Visit | Center at [facility] [address] | [address] | gastric bypass | | | | Floor [address] | [address] | (Primary Dx); | | | | [place] Mailcode: | [place], [place] | 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[address] for | [address] | with insulin therapy | | | | [facility] | | ([facility]) | | | | [place], [place] | | | | | | [address] | | | | | | [phone] | | | +--------+---------+ + + + [...] Patient referred by: Randell Franks MD [address] [place] [address] Documented time of visit: 10:33 to 10:55 (22 minutes lnoo-vn-xsht with patient) Surgery: Gastric Bypass Date of [...] tomato), cream of wheat occ, cottage cheese, polish yogurt-light and fit, protein bar from [employer]. Unable to keep protei n shakes down. Fluid choices: water-4-5 bottles per day Supplementation: Flinstones, iron, vitamin D, vitamin C, Citracal supplement x 2 in the mor eusebio and 2 at night, magnesium, potassium, [id number] today Assessment: Vomiting likely due to volume [...] multivitamin & mineral (with iron) supplement, 2/day -2257-2527 mg calcium citrate with vitamin D/day (take in divided doses, not within 2 hour s of multivitamin or iron supplement) -500 mcg/day sublingual B12 supplement (or monthly injections) Continued to reinforce importance of mindful eating. Continue to increase physical activity. Follow up in [address],[place] Pager# [phone] Phone: [phone] in this encounter Plan of Treatment +--------+---------+ + + + | Date | Type | Specialty | Care Team | Description | +--------+---------+ + + + | 05/27/ | Office | Nutrition | Tejas Cevallos, | | | 2018 | Visit | | [address] | | | | | | [address] | | | | | | [place], [place] | | | | | | [address] | | +--------+---------+ + + + | 05/27/ | Office | Surgery | Ronna Clarke, | | | 2017 | Visit | | ACNP [address] | | | | | | [address] [place], [place] | | | | | | [address] | | | | | | [phone] | | | | | | | | +--------+---------+ + + + | 05/27/ | Office | Pain Management | Demar Cueva, PhD | | | 2017 | Visit | | [address] | | | | | | [place], [place] | | | | | | [address] | | | | | | [phone] | | | | | | | | +--------+---------+ + + + | 06/04/ | Office | Cardiology | Randell Franks, | | | 2018 | Visit | | MD [address] | | | | | | Ave [place], [place] | | | | | | [address] | | | | | | [phone] | | | | | | | | +--------+---------+ + + + as of this encounter Procedures + +--------+ + + + | Procedure Name | Priori | Date/Time | Associated Diagnosis | Comments | | | ty | | | | + +--------+ + + + | SD MNT RE-ASSESSMNT | Routin | 04/01/2018 | [...]
--- OUTSIDE RECORDS SUMMARY | ~2018-04-27 | XMS | Encounter Summary ---
Demographics + + + | Address | [address] | | | [place] [address] | + + + | Home Phone [...] + | KENNY BERRY | ECON | [address] | | | | | [place], [place] | | | | | [address] | | + + + + + | MAXIMILIANO FARRELL | ECON | Unknown | | + + + + + Care Team Providers + +------+ + | Care Manager Instrumentation Name | Role | Phone | + [...] | | | [address] Mailcode: | [place], [place] | infection | | | | [address] | [address] | | | | | Health and Healing, | [phone] | | | | | [address] [place] [address], | | | | | | [place] [address] | | | | | | [phone] | | | +--------+ + + + [...] Rd | | | | | | [place], [place] | | | | | | [address] | | +--------+---------+ + + + | 05/27/ | Office | Surgery | Ronna Clarke, | | | 2018 | Visit | | [address] | | | | | | [place], [place] | | | | | | [address] | | | | | | [phone] | | | | | | | | +--------+---------+ + + + | 05/27/ | Office | Pain Management | Demar Cueva, PhD | | | 2017 | Visit | | [address] | | | | | | [place], [place] | | | | | | [address] | | | | | | [phone] | | | | | | | | +--------+---------+ + + + | 06/04/ | Office | Cardiology | Randell Franks, | | | 2017 | Visit | | MD [address] | | | | | | [place], [place] | | | | | | [address] | | | | | | [phone] | | | | | | | | +--------+---------+ + + + as of this encounter Visit Diagnoses Not on filein this encounter"
--- OUTSIDE RECORDS SUMMARY | ~2018-04-27 | XMS | Encounter Summary ---
Demographics + + + | Address | [address] | | | [place] [address] | + + + | Home Phone [...] + | KENNY BERRY | ECON | [address] | | | | | [place], [place] | | | | | [address] | | + + + + + | MAXIMILIANO FARRELL ECON | Unknown | | + + + + + Care Team Providers + +------+ + | Care High Voltage Electrician Name | Role | Phone | + +------+ + | Fadi Goodrich DO | PCP | | + +------+ + Encounter Details +--------+ + + + + | Date | Type | Department | Care Team | Description | +--------+ + + + + | 03/10/ | Pharmacy | [facility] | | | | 2017 | Visit | & [facility] | | | | | | [address] | | | | | | [place], [place] | | | | | | [address] | | | | | | [phone] | | | +--------+ + + + [...] | 2017 | Visit | | RD [address] [facility] | | | | | | [address] | | | | | | [place], [place] | | | | | | [address] | | +--------+---------+ + + + | 05/27/ | Office | Surgery | Ronna Clarke, | | | 2017 | Visit | | [facility] [address] | | | | | | Ave [place], [place] | | | | | | [address] | | | | | | [phone] | | | | | | | | +--------+---------+ + + + | 05/27/ | Office | Pain Management | Demar Cueva, PhD | | | 2017 | Visit | | [address] [place] | | | | | | [place], [place] | | | | | | [address] | | | | | | [phone] | | | | | | | | +--------+---------+ + + + | 06/04/ | Office | Cardiology | Randell Franks, | | | 2017 | Visit | | [address] | | | | | | [place], [place] | | | | | | [address] | | | | | | [phone] | | | | | | | | +--------+---------+ + + + as of this encounter Visit Diagnoses Not on filein this encounter"
--- OUTSIDE RECORDS SUMMARY | ~2018-04-27 | XMS | Encounter Summary ---
Demographics + + + | Address | [address] | | | [place] [address] | + + + | Home Phone [...] + | KENNY BERRY | ECON | [address] | | | | | [place], [place] | | | | | [address] | | + + + + + | MAXIMILIANO FARRELL | ECON | Unknown | | + + + + + Care Team Providers + +------+ + | Care Java Developer With Security Clearance Name | Role | Phone | + [...] Randell | Bariatric | | | with FREIGHT ASSOCIATE | | hypertension | [address] | Surg Chh | | | | | Right | [address] | [address] | | | | | heart | [place], [place] | Ave | | | | | failure | [address] | Mailcode: | | | | | ([facility]) Type | Phone: | [address] | | | | | 2 diabetes | [phone] | for Health | | | | | mellitus | Fax: | and Healing, | | | | | without | [phone] | 6th floor | | | | | complication | | [place], [place] | | | | | , with | | [address] | | | | | long-term | | Phone: | | | | | current use | | [phone] | | | | | of insulin | | Fax: | | | | | ([facility]) | | [phone] | | | | | Procedures | [...] | 2018 | Visit | Center at [facility] 6th | MD [address] | surgery (Primary | | | | Floor [address] | [place], [place] | Dx); History of | | | | Ave Mailcode: CH4S | [address] | Frandy-en-Y gastric | | | | [facility] | [phone] | bypass | | | | and Healing, 6th | | | | | | floor [place], [place] | | | | | | [address] | | | | | | [phone] | | | +--------+---------+ + + + [...] prevent gastric/marginal ulcers. Please visit with our A R Specialist (RD) for instructions about your Bariatric diet, assistance with calorie counts, tips and tricks for working with your diet restrictions, an d recipes after bariatric surgery. Daily yogurt; even just 1 tablespoon twice a day will provide enough probiotics to optimize digestion. Try to use a high-quality, probiotic-dense yogurt (eg Zaria's, Kobifield, Stacie eway Kefir, Strategic Client Executive Duke's Occitan Yogurt). Remember to chew your food well, [...] protein daily, and 64 oz water daily. Tunnel Kiln Operator just changed diet to he lp her [...] by communicating with her mother - Follow Tunnel Kiln Operator recommendations to help with nausea (decrease volume, [...] Anisa Dillon MD PGY-1, Red Surgery Pager: [phone] in this encounter Plan of Treatment +--------+---------+ + + + | Date | Type | Specialty | Care Team | Description | +--------+---------+ + + + | 05/27/ | Office | Nutrition | Tejas Cevallos, | | | 2017 | Visit | | [address] | | | | | | [address] | | | | | | [place], [place] | | | | | | [address] | | +--------+---------+ + + + | 05/27/ | Office | Surgery | Ronna Clarke, | | | 2017 | Visit | | ACNP [address] | | | | | | [place], [place] | | | | | | [address] | | | | | | [phone] | | | | | | | | +--------+---------+ + + + | 05/27/ | Office | Pain Management | Demar Cueva, PhD | | | 2017 | Visit | | [address] | | | | | | [place], [place] | | | | | | [address] | | | | | | [phone] | | | | | | | | +--------+---------+ + + + | 06/04/ | Office | Cardiology | Randell Franks, | | | 2018 | Visit | | MD [address] | | | | | | [place], [place] | | | | | | [address] | | | | | | [phone] | | | | | | | [...]
--- OUTSIDE RECORDS SUMMARY | ~2018-04-27 | XMS | Encounter Summary ---
Demographics + + + | Address | [address] | | | [place] [address] | + + + | Home Phone [...] + | KENNY BERRY | ECON | [address] | | | | | [place], [place] | | | | | [address] | | + + + + + | MAXIMILIANO FARRELL | ECON | Unknown | | + + + + + Care Team Providers + +------+ + | Care Hand Hardener Name | Role | Phone | + [...] | | 2018 | | Center at [facility] 6th | [facility] [address] | | | | | Floor [address] | [place], [place] | | | | | [facility] Mailcode: [facility] | [address] | | | | | [facility] | [phone] | | | | | and Erick, 6th | | | | | | floor [place], [place] | | | | | | [address] | | | | | | [phone] | | | +--------+ + + + [...] Rd | | | | | | [place], [place] | | | | | | [address] | | +--------+---------+ + + + | 05/27/ | Office | Surgery | Ronna Clarke, | | | 2017 | Visit | | [address] | | | | | | [place], [place] | | | | | | [address] | | | | | | [phone] | | | | | | | | +--------+---------+ + + + | 05/27/ | Office | Pain Management | Demar Cueva, PhD | | | 2017 | Visit | | [address] | | | | | | [facility] [place] | | | | | | [address] | | | | | | [phone] | | | | | | | | +--------+---------+ + + + | 06/04/ | Office | Cardiology | Randell Franks, | | | 2017 | Visit | | MD [address] | | | | | | [place] [facility] [place] | | | | | | [address] | | | | | | [phone] | | | | | | | | +--------+---------+ + + + as of this encounter Visit Diagnoses Not on filein this encounter"
--- OUTSIDE RECORDS SUMMARY | ~2018-04-27 | XMS | Clinical Summary ---
Demographics + + + | Address | [address] | | | [place] [address] | + + + | Home Phone | | + + + | Preferred Language | Unknown | + + + | Marital Status | | + + + | Jainism Affiliation | Unknown | + + + | Race | Unknown | + + + | Ethnic Group | Unknown | + + + Author + + + | Author | [facility] | + + + | Organization | [facility] | + + + | Address [...] Team Providers + +------+ + | Care Grizzlyman Name | Role | Phone | + [...] | | | Activ | | (DRISDOL) [address] | mouth twice a week. | | [...] | obesity, she is enrolled in the [facility] bariatric program. She has | | lost [...] Recent | | admission to [facility] for 100lb weight | | gain- DC on diuresis on 03/06/2016- she feel improvedShyesenia was on | | Metolazone and Torsemide prior to hospitalization- both have | | better bioavailability than lasix in gut edema but she retained | | 100lbs - how ever she is currently on only Torsemide 100mg Q12hrs | | started in [place] and her weight been stable sinceShe has no | | other complaints.She is pending to see NephrologistEcho | | 02/16/2016([facility])- Normal LV systolic function, mildly [...] Documentati | | Cheyanne Miner, | Other ([facility] | | 2017 | on Only | | [place] | ED Notes 11/23/17) | +--------+ + + + + | 04/21/ | Documentati | | Cheyanne Miner, | Other ([facility] Notes | 2017 | on [...] [address] | | | | | | [place] [address] | | | | | | [phone] | | | | | | | [...] + + + + | Calculated P [place] | 32 | degrees | [facility] | + + + + + | Calculated R [place] | 75 | degrees | [facility] | + + + + + | Calculated T [place] | 40 | degrees | [facility] | + + + + + | Diagnosis | Please refer to | | [facility] | | | Providers office visit | | | | | note for Providers | | | | | Interpretation.Confirmed | | | | | by [facility] [place] Read Only, | | | | | [facility] [place] ([id number]), | | | | | editorial cartoonist Glen Alberto | | | | | (253) on 04/26/2018 | | | | | 3:46:10 PM | | | + + + + + + + + + + | Performing | Address | City/State/Zipcode | Phone Number | | Organization | | | | + + + + + | [facility] | [address] | [place] [address] | | + + + + + [...] +------+-------+ + | MEDICAID | EASTER | [id number] | | | [address] | | | N | | | | [place] | | | [place] | | | | [address] | | | DIRECTOR [employer] | | | | | + +--------+ [...] | mireya | | | [address] | [address] | + +--------+ +--------+ + +
--- OUTSIDE RECORDS SUMMARY | ~2018-04-27 | XMS | Encounter Summary ---
Demographics + + + | Address | [address] | | | [place] [address] | + + + | Home Phone [...] + | KENNY BERRY | ECON | [address] | | | | | [place], [place] | | | | | [address] | | + + + + + | MAXIMILIANO FARRELL | ECON | Unknown | | + + + + + Care Team Providers + +------+ + | Care Drum Plater Name | Role | Phone | [...] Road | | | | | | [place], [place] | | | | | | [address] | | | +--------+ + + + [...] | 2017 | Visit | | [address] [facility] | | | | | | [address] | | | | | | [place], [place] | | | | | | [address] | | +--------+---------+ + + + | 05/27/ | Office | Surgery | Ronna Clarke, | | | 2017 | Visit | | ACNP [address] | | | | | | Ave [place], [place] | | | | | | [address] | | | | | | [phone] | | | | | | | | +--------+---------+ + + + | 05/27/ | Office | Pain Management | Demar Cueva, PhD | | | 2017 | Visit | | [address] | | | | | | [place] | | | | | | [address] | | | | | | [phone] | | | | | | | | +--------+---------+ + + + | 06/04/ | Office | Cardiology | Randell Franks, | | | 2017 | Visit | | MD [address] | | | | | | Ave [place], [place] | | | | | | [address] | | | | | | [phone] | | | | | | | | +--------+---------+ + + + as of this encounter Visit Diagnoses Not on filein this encounter"
--- OUTSIDE RECORDS SUMMARY | ~2018-04-27 | XMS | Encounter Summary ---
Demographics + + + | Address | [address] | | | [place] [address] | + + + | Home Phone [...] + | KENNY BERRY | ECON | [address] | | | | | [place], [place] | | | | | [address] | | + + + + + | MAXIMILIANO FARRELL | ECON | Unknown | | + + + + + Care Team Providers + +------+ + | Care Pellet Press Operator Name | Role | Phone [...] | (Primary Dx) | | | | [facility] 4th Floor [address] | | | | | [address] Mail | [place], [place] | | | | | Code: [address] | [address] | | | | | for Health and | [phone] | | | | | Healing, 4th Floor | | | | | | [place], [place] | | | | | | [address] | | | | | | [phone] | | | +--------+---------+ + + + [...] or walk. Surgery check-in location: Admitting - [facility], ninth floor [facility] Surgery Check in Time: The [...] it is after office hours, call the [facility] paint booth operator at [phone] and ask them to page him or [...] d function per TTE ( 02/16/2017) from [facility]: Improved and stable. T2DM - controlled with [...] renal failure no electrolyte abnormalities no dialysis Urology/Alarm Signal Operator: Within Defined Limits except as noted below [...] mg by mouth two times daily. CALCIUM [id number]-GENIS ORAL Take 2 tablets by mouth two [...] 98ms, QTC 460ms, TTE ( 02/16/2017) - [employer] 1. Overall left ventricular systolic function is normal with, an EF between 60 - 65 %. 2. The right ventricle is normal in size and function. 3. No significant valvular abnormalities are noted. 4. In comparison to the previous (technically difficult) echocardiographic study done 01/01, no signfiicant changes are noted. TTE (02/17/2016) - Save[employer] Conclusions 1. There is normal left ventricular [...] and resp iratory change. TTE (11/07/2015) - [facility] Final Impressions: 1. The interpretation of [...] per TTE ( 02/16/2017) form [facility]. Improved and stable. - Confirmed with Dr. [...] Advised to bring her own apparatus for [facility]. GERD - On omeprazole. Chronic Fluid [...] to this patient's care. Gay Hoff, ERENDIRA,ANP [facility] 4TH FLOOR [address] [facility] [place] [address] I spent time (45 minutes, [...] 05/27/ | Office | Nutrition | Tejas Cevlalos, | | | 2017 | Visit | | [address] | | | | | | [address] | | | | | | [place], [place] | | | | | | [address] | | +--------+---------+ + + + | 05/27/ | Office | Surgery | Ronna Clarke, | | | 2017 | Visit | | [facility] [address] | | | | | | [place], [place] | | | | | | [address] | | | | | | [phone] | | | | | | | | +--------+---------+ + + + | 05/27/ | Office | Pain Management | Demar Cueva, PhD | | | 2017 | Visit | | [address] | | | | | | [place], [place] | | | | | | [address] | | | | | | [phone] | | | | | | | | +--------+---------+ + + + | 06/04/ | Office | Cardiology | Randell Franks, | | | 2017 | Visit | | MD [address] | | | | | | [place] [facility] [place] | | | | | | [address] | | | | | | [phone] | | | | | | | | +--------+---------+ + + + + +--------+ + + | Name | Priori | Associated Diagnoses | Order Schedule | | | ty | | | + +--------+ + + | COMMUNICATION TO [facility] DRAW | Routin | Preop examination | Ordered: 02/22/2018 | | | e | | | + +--------+ + + as of this encounter Procedures + +--------+ + + + | Procedure Name | Priori | Date/Time | Associated Diagnosis | Comments | | | ty | | | | + +--------+ + + + | NE COLLECTION VENOUS | Routin | 02/22/2018 | [...] | 3.50 - 10.80 K/cu mm | [facility] | | | | | SERVICES, CORE | + + + + + | RED CELL COUNT | 5.12 | 4.00 - 5.20 M/cu mm | [facility] | | | | | SERVICES, [...] 10.0 | 9.7 - 12.3 fL | [facility] | | | | | SERVICES, CORE | + + + + + | NRBC% | 0.0 | 0.0 - 0.3 % | [facility] | | | | | SERVICES, CORE | + + + + + | NRBC# | 0.00 | 0.00 - 0.02 K/cu mm | [facility] | | | | | SERVICES, CORE | + + + + + | NEUTROPHIL % | 68.2 | 50.0 - 70.0 % | [facility] | | | | | SERVICES, [...] 1.3 | 1.0 - 3.0 % | [facility] | | | | | SERVICES, CORE | + + + + + | BASO % | 0.5 | 0.0 - 2.0 % | [facility] | | | | | SERVICES, [...] | 0.00 - 0.10 K/cu mm | [facility] | | | | | SERVICES, [...] + | [facility] | [address] | [place] [address] | | | SERVICES, CORE | CLARENCE [...] [facility] | [address] | [place] [address] | | | SERVICES, | [address] [...] [facility] | [address] | [place] [address] | | | SERVICES, | [address] [...] | considered for monitoring long term care pharmacist glycemic control in patients with: | LABORATORY [...] + | [facility] | [address] [facility] | [place] [address] | | | SERVICES, SPECIAL | [address] [...] >60 mL/min | [facility] | | [place] | | | CLAIRE, CORE | + +---------+ + + | EGFR NON | >60 | >60 mL/min | [facility] | | -[place] | | | CLAIRE, CORE | + [...] LABORATORY | | CORRECTED) | | | [facility], CORE | + +---------+ + + | BILIRUBIN TOTAL | 0.5 | 0.3 - 1.2 mg/dL | [facility] | | | | | SERVICES, CORE | + +---------+ + + | TOTAL PROTEIN, | 8.2 | 6.4 - 8.2 g/dL | [facility] | | PLASMA (LAB) | | | [facility], [facility] | + +---------+ + + | ALBUMIN, PLASMA | 3.3 (L) | 3.5 - 4.7 g/dL | [facility] | | (LAB) | | | [facility], [facility] | + +---------+ + + | ALK [...] AST CMNT | No Hemo | | [facility] | | | | | SERVICES, CORE | + +---------+ + + + + | Specimen | + + | Blood - Blood | + + + + + | Narrative | Performed At | + + + | GFR is estimated using the MDRD equation recommended by the | [facility] | | National Kidney Disease Education Program. [...] [facility] | [address] | [place] [address] | | | LYDIA RANGEL | CLARENCE [...] DEPT OF | [address] | [place], [place] | | | CARDIOLOGY | [address] | [address] | | + + + + + in this encounter Visit Diagnoses + + | Diagnosis | + + | Preop examination - Primary | + + | Preoperative examination, unspecified | + +
--- OUTSIDE RECORDS SUMMARY | ~2018-04-27 | XMS | Encounter Summary ---
Demographics + + + | Address | [address] | | | [place] [address] | [...] + + + | Author | [facility] [employer] | + + + | Organization | [facility] [employer] | + + + | Address [...] Providers + +------+ + | Care Animal Sitter Name | Role | Phone | [...] | | | | | [place] [address] | | | | | | [phone] | | | +--------+ + + + [...] [address] | | | | | | [place] [address] | | | | | | [phone] | | | | | | | | +--------+---------+ + + + as of this encounter Visit Diagnoses Not on filein this encounter"
[~2018-04-27 15:35] MED LIST changes: +ATENOLOL50 MG PO
--- OUTSIDE RECORDS SUMMARY | 2018-04-27 15:40 | XMS ---
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 ROMERO Security Instructional Design Specialist Events No recent Security Events currently on file CRITERIA MET - Group Notification CARE PROVIDERS There are no care providers on record at this time. Elías has no Care Guidelines for this patient. Bacilio VISIT COUNT (12 MO.) 1 [facility] 3 HADLEY Zamudio TOTAL 4 NOTE: Visits indicate total known visits. ED/C VISIT TRACKING (12 MO.) 04/27/2018 15:35 [facility] [place] TYPE: Emergency COMPLAINT: - WEAKNESS,NAUSEA/VOMITING 01/04/2018 10:16 [facility] [place] [facility] TYPE: Emergency COMPLAINT: - L KNEE PAIN 11/23/2017 21:13 [facility] [place] TYPE: Emergency COMPLAINT: - ABD PAIN DIAGNOSES: - Morbid (severe) obesity due to excess calories - Unspecified abdominal pain - Allergy status to penicillin - [facility]FP (current) use of insulin - Type 2 diabetes mellitus without complications - Allergy status to other drugs, medicaments and biological substances status - Other nursing home (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 06/14/2017 19:32 [facility] [place] TYPE: Emergency COMPLAINT: - ABDOMINAL PAIN DIAGNOSES: - [facility]FP (current) use of insulin - Personal history of urinary (tract) infections - Personal history of transient ischemic attack (TIA), and cerebral infarction without residual deficits - Acquired absence of other specified parts of digestive tract - Unspecified abdominal pain - Type 2 diabetes mellitus without complications - [facility] (current) use of aspirin - Allergy status to penicillin - Allergy status to other antibiotic agents status - Other chronic pain - Unspecified abdominal hernia without obstruction or gangrene INPATIENT VISIT TRACKING (12 MO.) 03/01/2018 05:27 [facility] TYPE: Surgery DIAGNOSES: 01263. MORBID OBESITY 92315. Essential (primary) hypertension 259[address]. Obstructive sleep apnea (adult) (pediatric) 97[address]. Body mass index (BMI) 70 or greater, adult [address]81. Type 2 diabetes mellitus without complications [address]10[address]. Morbid (severe) obesity due to excess calories [address]88[address]. Chronic diastolic (congestive) heart failure [email or web address]
[2018-04-27] MEDS ORDERED: HYDROXYZINE HCL25 MG PO (15:54)
== END 2018-04-27 17:38 | disposition home or self-care (01) ==
LOC: ED 15:35
DX: R11.2 Nausea with vomiting, unspecified (principal); E11.9 Type 2 diabetes mellitus without complications; E66.9 Obesity, unspecified; G43.909 Migraine, unspecified, not intractable, without status migrainosus; F41.9 Anxiety disorder, unspecified; Z88.0 Allergy status to penicillin; Z88.8 Allergy status to other drugs, medicaments and biological substances; Z79.899 Other long term (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; Z79.84 Long term (current) use of oral hypoglycemic drugs; Z79.4 Long term (current) use of insulin; Z79.82 Long term (current) use of aspirin; Z79.891 Long term (current) use of opiate analgesic
CPT/HCPCS: 74177; 80053; 85025; 96360; 99284; J7030; Q9967

== ENCOUNTER 2018-08-22 18:04 | Emergency (ER) | payer OTHER ==
[~2018-08-22] VITALS: Ht 149.9 cm; Wt 132.0 kg
[~2018-08-22 18:04] MED LIST changes: +HYDROXYZINE HCL25 MG PO
--- OUTSIDE RECORDS SUMMARY | 2018-08-22 18:08 | XMS ---
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 ROMERO Security Speech And Language Specialist Events No recent Security Events currently on file CRITERIA MET - Group Notification CARE PROVIDERS Rob Tilley Power Generation Engineer/Finance Specialist 03/26/2018-Current PHONE: [phone] Rob Tilley Primary Care 03/27/2018-Current PHONE: [phone] Elías has no Care Guidelines for this patient. [place] VISIT COUNT (12 MO.) [address] [place] TOTAL 4 NOTE: Visits indicate total known visits. ED/UCC VISIT TRACKING (12 MO.) 08/22/2018 18:05 [facility] [place] TYPE: Emergency COMPLAINT: - ABD PAIN 04/27/2018 15:35 [facility] [place] TYPE: Emergency COMPLAINT: - WEAKNESS,NAUSEA/VOMITING DIAGNOSES: - Other snf (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 - superintendent container terminal (current) use of opiate analgesic - Allergy status to other drugs, medicaments and biological substances status - superintendent container terminal (current) use of aspirin - Anxiety disorder, unspecified - Allergy status to penicillin - Migraine, unspecified, not intractable, without status migrainosus - retirement (current) use of insulin - Obesity, unspecified - retirement (current) use of oral hypoglycemic drugs - Nausea with vomiting, unspecified - Type 2 diabetes mellitus without complications 01/04/2018 10:16 [facility] [place] TYPE: Emergency COMPLAINT: - L KNEE PAIN 11/23/2017 21:13 [facility] [place] TYPE: Emergency COMPLAINT: - ABD PAIN DIAGNOSES: - Morbid (severe) obesity due to excess calories - Unspecified abdominal pain - Allergy status to penicillin - retirement (current) use of insulin - Type 2 diabetes mellitus without complications - Allergy status to other drugs, medicaments and biological substances status - Other snf (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 INPATIENT VISIT TRACKING (12 MO.) 03/01/2018 05:27 [facility] TYPE: Surgery DIAGNOSES: 63262. MORBID OBESITY 04202. Essential (primary) hypertension . Obstructive sleep apnea (adult) (pediatric) 91073. Body mass index (BMI) 70 or greater, adult . Type 2 diabetes mellitus without complications . Morbid (severe) obesity due to excess calories . Chronic diastolic (congestive) heart failure [email or web address]
[2018-08-22] MEDS ORDERED: PAXIL40 MG PO (18:42)
== END 2018-08-22 22:00 | disposition home or self-care (01) ==
LOC: ED 18:04
DX: K52.9 Noninfective gastroenteritis and colitis, unspecified (principal); E11.9 Type 2 diabetes mellitus without complications; F41.9 Anxiety disorder, unspecified; E66.9 Obesity, unspecified; Z86.73 Personal history of transient ischemic attack (TIA), and cerebral infarction without residual deficits; Z87.440 Personal history of urinary (tract) infections; Z86.711 Personal history of pulmonary embolism; Z98.84 Bariatric surgery status; Z88.0 Allergy status to penicillin; Z88.8 Allergy status to other drugs, medicaments and biological substances; Z79.899 Other long term (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; Z79.84 Long term (current) use of oral hypoglycemic drugs; Z79.82 Long term (current) use of aspirin
CPT/HCPCS: 74177; 80053; 81001; 83690; 84703; 85025; 96361; 96374; 96375; 99284-25; J1170; J2405; J7030; Q9967

== ENCOUNTER 2019-05-10 13:06 | Emergency (ER) | payer OTHER ==
[~2019-05-10] VITALS: Ht 147.3 cm; Wt 120.2 kg
--- OUTSIDE RECORDS SUMMARY | ~2019-05-10 | XMS | Encounter Summary ---
Demographics + + + | Address | [address] | | | [place] [address] | + + + | Home Phone | | + + + | Preferred Language | Unknown | + + + | Marital Status | Single | + + + | Cheondoism Affiliation | NON | + + + [...] + | Katalina Padilla | ECON | [address] | | | | | [place], [place] | | | | | [address] | | + + + + + | Ellie Vang | ECON | Unknown | | + + + + + Care Team Providers + +------+ + | Care Plant Electrical Engineer Name | Role | Phone | + +------+ + | Fadi Goodrich DO | PCP | | + +------+ + Encounter Details +--------+ + + + + | Date | Type | Department | Care Team | Description | +--------+ + + + + | 01/05/ | Document-Sc | Health Information | Unknown . | | | 2017 | anned | Services [address] | | | | | | [address] | | | | | | Mailcode: [id number] | | | | | | [facility] | | | | | | [place], [place] | | | | | | [address] | | | | | | [phone] | | | +--------+ + + + [...] | +--------+ + + + + | 05/13/ | Office | Plastic Surgery | Archie Ybarra MD | | | 2019 | Visit | | [address] | | | | | | [place], [place] | | | | | | [address] | | | | | | [phone] | | | | | | | | +--------+ + + + + | 06/27/ | Telephone-S | Pre-operative | | | | 2018 | cheduled | Medicine | | | +--------+ + + + + | 06/30/ | Office | Cardiology | Randell Franks, | | | 2018 | Visit | | [address] | | | | | | [place], [place] | | | | | | [address] | | | | | | [phone] | | | | | | | | +--------+ + + + + | 07/08/ | Procedure | Surgery | | | | 2018 | Pass | | | | +--------+ + + + + documented as of this encounter Visit Diagnoses Not on filedocumented in this encounter"
--- OUTSIDE RECORDS SUMMARY | ~2019-05-10 | XMS | Encounter Summary ---
Demographics + + + | Address | [address] | | | [place] [address] | + + + | Home Phone | | + + + | Preferred Language | Unknown | + + + | Marital Status | Single | + + + | Zoroastrian Affiliation | NON | + + + [...] + | Katalina Padilla | ECON | [address] | | | | | [place], [place] | | | | | [address] | | + + + + + | Ellie Vang | ECON | Unknown | | + + + + + Care Team Providers + +------+ + | Care Product Technician Name | Role | Phone | + +------+ + PCP | Unavailable | + +------+ + Encounter Details +--------+ + + + + | Date | Type | Department | Care Team | Description | +--------+ + + + + | 10/25/ | Results | Neurosurgery [address] | [address], | | | [address] | Only | [address] | ,PhD | | | | | [address] Mailcode:OP14B | | | | | | [facility] | | | | | | [place], [place] | | | | | | [address] | | | | | | [phone] | | | +--------+ + + + [...] [address] | | | | | | [place], [place] | | | | | | [address] | | | | | | [phone] | | | | | | | | +--------+ + + + + | 06/27/ | Telephone-S | Pre-operative | | | | 2019 | cheduled | Medicine | | | +--------+ + + + + | 06/30/ | Office | Cardiology | Randell Franks, | | | 2019 | Visit | | [address] | | | | | | [place] [facility] [place] | | | | | | [address] | | | | | | [phone] | | | | | | | [...] | + +--------+ + + + | CEREBRAL,1V,1SE | Routin | 10/25/1993 | | Results for this | | | e | 3:30 PM | | procedure are in the | | | | PST | | results section. | + +--------+ + + + documented in this encounter Results CEREBRAL,1V,1SE (10/25/1993 3:30 PM PST) + + + + + + | Component | Value | Ref Range | Performed | Pathologist | | | | | At | Signature | + + + + + + | CEREBRAL 1 | Radiologist 1: MARK, | | | | | VESSEL W/1 | Jose Carlos CHANDRA, | | | | | GISELA | DYLAN | | | | | | | | | | | | | | | | | | [birth year] | | | | | | INTERNAL CAROTID | | | | | | ANGIOGRAM done on | | | | | | 25-Oct-93 at | | | | | | 15:30Dictated on | | | | | | 25-Oct-93 at 19:10 | | | | | | REFERRING PHYSICIAN: | | | | | | Dr. Trell Collazo | | | | | | | | | | | | Dr. Benito Birmingham in | | | | | | [place]. | | | | | | | | | | | | Julia Blackman at [facility]. | | | | | | | | | | | | Dr. Salomon | | | | | | Rex. 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 She is referred | | | | | | forfollow-up angiography | | | | | | to evaluate whether she | | | | | | can be taken | | | | | | offCoumadin. STUDY: | | | | | | Right internal carotid | | | | | | angiogram with a | | | | | | cerebral circulationin | | | | | | the AP and lateral | | | | | | projections. FINDINGS: | | | | | | The right ICA | | | | | | injection demonstrates | | | | | | there is now goodfilling | | | | | | of the superior | | | | | | sagittal sinus, both | | | | | | transverse | | | | | | sinuses,sigmoid sinuses, | | | | | | and jugular bulbs to | | | | | | veins. The arterial | | | | | | system isnormal. There | | | | | | is thrombus within the | | | | | | posterior superior | | | | | | sagittalsinus, but | | | | | | anterograde flow through | | | | | | the sinuses. There | | | | | | may also beclot within | | | | | | the transverse sinuses. | | | | | | The deep cerebral | | | | | | venous systemfills out | | | | | | in the normal | | | | | | anterograde fashion to | | | | | | the vein of Jacobo | | | | | | andthrough the straight | | | | | | sinus. IMPRESSION: Good | | | | | | resolution of thrombus | | | | | | within superior | | | | | | sagittal, torcula, | | | | | | andlateral sinuses. | | | | | | There is still some | | | | | | thrombus remaining | | | | | | within thesuperior | | | | | | sagittal and lateral | | | | | | sinuses. | | | | | | NEUROANGIOGRAM OPERATIVE | | | | | | REPORT: PREOPERATIVE | | | | | | DIAGNOSIS: Dural | | | | | | sinus | | | | | | thrombosis.POSTOPERATIVE | | | | | | DIAGNOSIS: Same. | | | | | | ANESTHESIA: Local | | | | | | infiltration with 1% | | | | | | Lidocaine. DURATION OF | | | | | | PROCEDURE: Began at | | | | | | 14:15 | | | | | | | | | | | | Terminated at 15:30 | | | | | | Fluoro Time: 4 minutes | | | | | | The patient was given a | | | | | | full explanation of the | | | | | | above | | | | | | procedureincluding the | | | | | | risks, benefits, | | | | | | alternatives, and | | | | | | indications.Informed | | | | | | consent was obtained. | | | | | | OPERATION #1: Surgical | | | | | | catheterization of | | | | | | right femoral artery. | | | | | | OPERATION #2: | | | | | | Catheterization of | | | | | | thoracic aortic arch. | | | | | | OPERATION #3: | | | | | | Catheterization of | | | | | | right innominate artery. | | | | | | OPERATION #4: | | | | | | Catheterization of | | | | | | right CCA. OPERATION #5: | | | | | | Selective | | | | | | catheterization of right | | | | | | ICA. OPERATION #6: | | | | | | Angiogram of right | | | | | | ICA, cerebral | | | | | | circulation, in theAP | | | | | | and lateral projections. | | | | | | DESCRIPTION OF | | | | | | PROCEDURE: The patient | | | | | | was taken to the | | | | | | Neuroangiosuite and laid | | | | | | supine on the table. | | | | | | After local | | | | | | infiltration with | | | | | | 1%Lidocaine, a 19-gauge | | | | | | single well puncture | | | | | | needle was introduced | | | | | | intothe right femoral | | | | | | artery. A 4.1 Indonesian | | | | | | catheter was navigated | | | | | | over0.035" Donal coated | | | | | | Rockyson guide wire into | | | | | | the right femoral | | | | | | artery,abdominal aorta, | | | | | | and the thoracic aortic | | | | | | arch. The right | | | | | | innominant,CCA, and | | | | | | right ICA was | | | | | | selectively | | | | | | catheterized. The | | | | | | cerebral ICA wasstudied | | | | | | in the PA and lateral | | | | | | projections. The | | | | | | catheter was | | | | | | removed.There were no | | | | | | complications. END | | | | | | OF IMPRESSION: | | | | + + + + + + + + | Specimen | + + | | + + + +---------+ + + | Performing | Address | City/State/Zipcode | Phone Number | | Organization | | | | + +---------+ + + | [facility] DEPARTMENT OF | | | | | RADIOLOGY | | | | + +---------+ + + documented in this encounter Visit Diagnoses Not on filedocumented in this encounter
--- OUTSIDE RECORDS SUMMARY | ~2019-05-10 | XMS | Encounter Summary ---
Demographics + + + | Address | [address] | | | [place] [address] | + + + | Home Phone | | + + + | Preferred Language | Unknown | + + + | Marital Status | Single | + + + | Voodoo Affiliation | NON | + + + | Race | White | + + + | Ethnic Group | Not or | + + + Author + + + | Author | [facility] | + + + | Organization | [facility] | + + + | Address | Unknown | + + + | Phone | Unavailable | + + + Support + + + + + | Name | Relationship | Address | Phone | + + + + + | Katalina Padilla | ECON | [address] | | | | | [place], [place] | | | | | [address] | | + + + + + | Ellie Vang | ECON | Unknown | | + + + + + Care Team Providers + +------+ + | Care Rn Digestive Name | Role | Phone | + +------+ + | Kenyatta Cardenas MD | PCP | | + +------+ + Reason for Referral Diagnostic Testing (Routine) +--------+--------+ + + + + | Status | Reason | Specialty | Diagnoses / | Referred By | Referred To | | | | | Procedures | Contact | Contact | +--------+--------+ + + + + | Closed | | Radiology | Diagnoses | Tiffany | Rad Ct Scan | | | | | History of | Keren W, | [facility] [address] | | | | | Frandy-en-Y | [facility] [address] | | | | | gastric | [address] | [address] | | | | | bypass | [place], | Mailcode: | | | | | Nausea and | [place] | [address] [facility] | | | | | vomiting, | [address] | Hospital | | | | | intractabili | Phone: | [place], [place] | | | | | ty of | | [address] | | | | | vomiting not | Fax: | Phone: | | | | | specified, | [phone] | [phone] | | | | | unspecified | | Fax: | | | | | vomiting | | [phone] | | | | | type | | | | | | | Diarrhea, | | | | | | | unspecified | | | | | | | type | | | | | | | Procedures | | | | | | | CT ABDOMEN | | | | | | | AND PELVIS W | | | | | | | IV CONTRAST | | | | | | | CT ABDOMEN | | | | | | | W IV | | | | | | | CONTRAST [place] | | | | | | | CT SCAN OF | | | | | | | ABDOMEN | | | | | | | [place]AST [place] | | | | | | | CT | | | | | | | ABDOMEN&PELV | | | | | | | IS | | | | | | | W/CONTRAST | | | +--------+--------+ + + + + Reason for Visit Diagnostic Testing (Routine) +--------+--------+ + + + + | Status | Reason | Specialty | Diagnoses / | Referred By | Referred To | | | | | Procedures | Contact | Contact | +--------+--------+ + + + + | Closed | | Radiology | Diagnoses | Welshans, | Rad Ct Scan | | | | | History of | Keren W, | [facility] [address] | | | | | Frandy-en-Y | [facility] [address] | | | | | gastric | [address] | [address] | | | | | bypass | [place], | Mailcode: | | | | | Nausea and | [place] | [address] [facility] | | | | | vomiting, | [address] | Hospital | | | | | intractabili | Phone: | [place], [place] | | | | | ty of | | [address] | | | | | vomiting not | Fax: | Phone: | | | | | specified, | [phone] | [phone] | | | | | unspecified | | Fax: | | | | | vomiting | | [phone] | | | | | type | | | | | | | Diarrhea, | | | | | | | unspecified | | | | | | | type | | | | | | | Procedures | | | | | | | CT ABDOMEN | | | | | | | AND PELVIS W | | | | | | | IV CONTRAST | | | | | | | CT ABDOMEN | | | | | | | W IV | | | | | | | [place] | | | | | | | CT SCAN OF | | | | | | | ABDOMEN | | | | | | | [place]AST [place] | | | | | | | CT | | | | | | | ABDOMEN&PELV | | | | | | | IS | | | | | | | W/CONTRAST | | | +--------+--------+ + + + + Encounter Details +--------+ + + + + | Date | Type | Department | Care Team | Description | +--------+ + + + + | 03/08/ | Hospital | Diagnostic Imaging | Keren Allen, | | | 2019 | Encounter | Services at [facility] | [facility] [address] | | | | | [address] | [place], [place] | | | | | [address] Mailcode: | [address] | | | | | [address] [facility] | [phone] | | | | | [place], [place] | | | | | | [address] | | | | | | [phone] | | | +--------+ + + + [...] | | + +---+---+---+ + + | Comments: former social smoker | + + + + +---------+ + [...] + + documented as of this encounter Medications at Time of Discharge + + + +---------+ + + | Medication | Sig | Dispensed | Refills | Start | End Date | | | | | | Date | | + + + +---------+ + + | ascorbic acid | Take 1 tablet by | 90 | 1 | 10/20/19 | | | (vitamin C) (VITAMIN | mouth once daily. | tablet | | 19 | | | C) 500 mg oral | | | | | | | tablet | | | | | | + + + +---------+ + + | aspirin EC 81 mg | Take 81 mg by mouth | | 0 | | | | oral tablet,delayed | once daily. | | | | | | release (DR/EC) | | | | | | + + + +---------+ + + | atenolol 25 mg | Take 50 mg by mouth | | 0 | 06/12/20 | | | oral tablet | once daily. | | | 17 | | + + + +---------+ + + | BELBUCA 600 mcg | | | 0 | 10/01/19 | | | buccal film | | | | 19 | | + + + +---------+ + + | CALCIUM | Take 2 tablets by | | 0 | | | | [id number]-GEN | mouth two times | | | | | | IS ORAL | daily. | | | | | + + + +---------+ + + | CYANOCOBALAMIN | by injection route | | 0 | | | | (VITAMIN B-12) INJ | every thirty days. | | | | | + + + +---------+ + + | docusate sodium | Take 200 mg by | | 0 | | | | (STOOL SOFTENER | mouth. Equate brand | | | | | | ORAL) | per patient | | | | | + + + +---------+ + + | ergocalciferol | Take 1 capsule by | | 0 | 06/04/20 | | | (VITAMIN D2) 50,000 | mouth every seven | | | 18 | | | unit oral capsule | days. | | | | | + + + +---------+ + + | | Take by mouth. | | 0 | | | | FA/mv,Ca,iron,min/ly | | | | | | | copene/lut | | | | | | | (MULTIVITAL ORAL) | | | | | | + + + +---------+ + + | Ferrous Gluconate | Take 1 tablet by | 90 | 1 | 10/20/19 | | | 324 mg total salt | mouth once daily. | tablet | | 19 | | | (36 mg elemental | | | | | | | iron) oral tablet | | | | | | + + + +---------+ + + | lurasidone | Take 40 mg by mouth | | 0 | | | | (LATUDA) 20 mg oral | once daily. | | | | | | tablet | | | | | | + + + +---------+ + + | magnesium oxide | Take 400 mg by mouth | | 0 | | | | 400 mg oral tablet | once daily. | | | | | + + + +---------+ + + | nystatin 100,000 | Apply to affected | 30 g | 0 | 10/13/19 | | | unit/gram topical | area two times | | | 19 | | | powderIndications: | daily. Apply to | | | | | | Intertriginous | candidal lesions | | | | | | candidiasis | until lesions have | | | | | | | healed. | | | | | + + + +---------+ + + | omeprazole 20 mg | Take 1 capsule by | 30 | 1 | 03/01/20 | | | oral capsule,delayed | mouth once daily. | capsule | | 19 | | | release(DR/EC) | Administer 30 to 60 | | | | | | | minutes before meals | | | | | + + + +---------+ + + | PARoxetine 10 mg | Take 40 mg by mouth | | 0 | | | | oral tablet | once daily. | | | | | + + + +---------+ + + | phentermine 37.5 | Take 1 tablet by | 90 | 1 | 02/16/20 | | | mg oral tablet | mouth once daily in | tablet | | 19 | | | | the morning. | | | | | | | Administer before | | | | | | | breakfast. | | | | | + + + +---------+ + + | potassium chloride | Take 20 mEq by mouth | | 0 | | | | 20 mEq oral packet | two times daily. | | | | | + + + +---------+ + + | pramipexole 0.125 | Take 0.125 mg by | | 0 | | | | mg oral tablet | mouth. | | | | | + + + +---------+ + + | promethazine 25 mg | Take 0.5 tablets by | 60 | 2 | 05/27/20 | | | oral | mouth four times | tablet | | 18 | | | tabletIndications: | daily as needed for | | | | | | post-operative | nausea/vomiting. | | | | | | nausea and vomiting | Indications: | | | | | | | Post-Operative | | | | | | | Nausea and Vomiting | | | | | + + + +---------+ + + | spironolactone 50 | Take 50 mg by mouth | | 0 | | | | mg oral tablet | once daily. | | | | | + + + +---------+ + + | thyroid (ARMOUR | Take 30 mg by mouth | | 0 | | | | THYROID) 30 mg oral | once daily. | | | | | | tablet tab | | | | | | + + + +---------+ + + | topiramate 50 mg | Take 1 tablet by | 360 | 3 | 01/08/20 | | | oral tablet | mouth two times | tablet | | 19 | | | | daily. May increase | | | | | | | by 1 tab twice daily | | | | | | | every 2 weeks, as | | | | | | | tolerated. Max dose | | | | | | | is 2 tabs twice | | | | | | | daily. | | | | | + + + +---------+ + + | torsemide 100 mg | Take 100 mg by mouth | | 0 | 03/02/20 | | | oral tablet | two times daily. | | | 18 | | | | Resume half dose for | | | | | | | first week post | | | | | | | opertative | | | | | + + + +---------+ + + documented as of this encounter Plan of Treatment +--------+ + + + + | Date | Type | Specialty | Care Team | Description | +--------+ + + + + | 05/13/ | Office | Plastic Surgery | Archie Ybarra MD | | | 2019 | Visit | | [address] | | | | | | [place], [place] | | | | | | [address] | | | | | | [phone] | | | | | | | | +--------+ + + + + | 06/27/ | Telephone-S | Pre-operative | | | | 2018 | cheduled | Medicine | | | +--------+ + + + + | 06/30/ | Office | Cardiology | Randell Franks, | | | 2018 | Visit | | [address] | | | | | | [place], [place] | | | | | | [address] | | | | | | [phone] | | | | | | | [...] | CT ABDOMEN AND | Routin | 03/08/2019 | History of | Results for this | | PELVIS W IV CONTRAST | e | 3:28 PM | Frandy-en-Y gastric | procedure are in the | | | | PDT | bypass Nausea and | results section. | | | | | vomiting, | | | | | | intractability of | | | | | | vomiting not | | | | | | specified, | | | | | | unspecified vomiting | | | | | | type Diarrhea, | | | | | | unspecified type | | + +--------+ + + + documented in this encounter Results CT ABDOMEN AND PELVIS W IV CONTRAST (03/08/2019 3:28 PM PDT) + + | Specimen | + + | | + + + + + | Narrative | Performed At | + + + | EXAM: CT of the abdomen and pelvis WITH intravenous contrast. | [facility] | | HISTORY: chronic abdominal pain, hx of gastric bypass, recurrent | RADIOLOGY VOICE | | ventral hernias COMPARISON: 04/27/2018. TECHNIQUE: CT of the | RECOGNITION 2 | | abdomen and pelvis with non-ionic iodinated intravenous contrast. | | | Coronal and sagittal reformats were generated and reviewed. | | | FINDINGS: LOWER THORAX: Unremarkable. LIVER: Unremarkable. | | | BILIARY: The gallbladder is surgically absent. PANCREAS: | | | Unremarkable. SPLEEN: Unremarkable. ADRENALS: Unremarkable. | | | KIDNEYS/URETERS: Nonobstructing 9 mm left upper pole stone is stable. | | | PELVIC ORGANS/BLADDER: Intrauterine device is in expected position | | | within the uterus. Urinary bladder is unremarkable. GI TRACT: The | | | bowel loops are not dilated. Postsurgical changes of a Frandy-en-Y | | | gastric bypass procedure. Multiple ventral hernias are noted | | | without complication. The largest contains a segment of colon and | | | small bowel with a base measuring 4.6 x 4.6 cm (image 89, sagittal | | | 113). Broad-based ventral hernia containing small bowel measures 5.0 | | | cm in transverse dimension and 2.6 cm in craniocaudal dimension (axial | | | 124, sagittal 129). PERITONEUM: No free air or fluid. LYMPH | | | NODES: No lymphadenopathy. VESSELS: Unremarkable. BONES AND SOFT | | | TISSUES: Unremarkable. IMPRESSION: Multiple bowel-containing | | | ventral hernias without complication. I have personally reviewed | | | the images and, if necessary, edited the report. I agree with the | | | report as now presented. Final signature: Mae Fierro MD | | | 03/08/2019 3:32 PM Preliminary: Mae Fierro MD Dictation | | | initiated: Mae Fierro MD 03/08/2019 3:27 PM | | + + + + + | Procedure Note | + + | Service Account, Radiant Res In Interface - 03/08/2019 3:33 PM PDT EXAM: CT of the | | abdomen and pelvis WITH intravenous contrast. HISTORY: chronic abdominal pain, hx of | | gastric bypass, recurrent ventral hernias COMPARISON: 04/27/2018. TECHNIQUE: CT of the | | abdomen and pelvis with non-ionic iodinated intravenous contrast. Coronal and sagittal | | reformats were generated and reviewed. FINDINGS:LOWER THORAX: Unremarkable. LIVER: | | Unremarkable.BILIARY: The gallbladder is surgically absent.PANCREAS: Unremarkable. | | SPLEEN: Unremarkable.ADRENALS: Unremarkable.KIDNEYS/URETERS: Nonobstructing 9 mm left | | upper pole stone is stable.PELVIC ORGANS/BLADDER: Intrauterine device is in expected | | position within the uterus. Urinary bladder is unremarkable. GI TRACT: The bowel loops | | are not dilated. Postsurgical changes of a Frandy-en-Y gastric bypass procedure. Multiple | | ventral hernias are noted without complication. The largest contains a segment of colon | | and small bowel with a base measuring 4.6 x 4.6 cm (image 89, sagittal 113). Broad-based | | ventral hernia containing small bowel measures 5.0 cm in transverse dimension and 2.6 | | cm in craniocaudal dimension (axial 124, sagittal 129).PERITONEUM: No free air or fluid. | | LYMPH NODES: No lymphadenopathy.VESSELS: Unremarkable. BONES AND SOFT TISSUES: | | Unremarkable. IMPRESSION: Multiple bowel-containing ventral hernias without | | complication. I have personally reviewed the images and, if necessary, edited the | | report. I agree with the report as now presented. Final signature: Mae Fierro MD | | 03/08/2019 3:32 PM Preliminary: Mae Fierro MD Dictation initiated: Mae Fierro MD | | 03/08/2019 3:27 PM | |GI TRACT: The bowel loops are not dilated. Postsurgical changes of a Frandy-en-Y gastric bypa ss procedure. | | | |Multiple ventral hernias are noted without complication. The largest contains a segment of colon and small bowel with a base measuring 4.6 x 4.6 cm (image 89, sagittal 113). Broad-bas ed ventral hernia containing | |small bowel measures 5.0 cm in transverse dimension and 2.6 cm in craniocaudal dimension (a xial 124, sagittal 129). | |PERITONEUM: No free air or fluid. | | | |LYMPH NODES: No lymphadenopathy. | |VESSELS: Unremarkable. | | | |BONES AND SOFT TISSUES: Unremarkable. | | | |IMPRESSION: | | | |Multiple bowel-containing ventral hernias without complication. | | | |I have personally reviewed the images and, if necessary, edited the report. I agree with th e report as now presented. | | | |Final signature: Mae Fierro MD 03/08/2019 3:32 PM | |Preliminary: Mae Fierro MD | |Dictation initiated: Mae Fierro MD 03/08/2019 3:27 PM | + + + +---------+ + + | Performing | Address | City/State/Zipcode | Phone Number | | Organization | | | | + +---------+ + + | [facility] | | | | | VOICE RECOGNITION 2 | | | | + +---------+ + + documented in this encounter Visit Diagnoses + + | Diagnosis | + + | History of Frandy-en-Y gastric bypass Bariatric surgery status | + + | Nausea and vomiting, intractability of vomiting not specified, unspecified vomiting | | type | + + | Diarrhea, unspecified type | + + documented in this encounter Administered Medications + +---------+ +--------+------+------+ | Medication Order | MAR | Action | Dose | Rate | Site | | | Action | Date | | | | + +---------+ +--------+------+------+ | iohexol (OMNIPAQUE) 350 mg | IV Push | 03/08/20 | 100 mL | | | | iodine/mL injection 100 mL 100 | | 19 3:29 | | | | | mL, intravenous, ONCE, 1 dose, | | PM PDT | | | | | 03/08/19 at 1600 | | | | | | + +---------+ +--------+------+------+ +---+---+ | | | +---+---+ documented in this encounter"
--- OUTSIDE RECORDS SUMMARY | ~2019-05-10 | XMS | Encounter Summary ---
Demographics + + + | Address | [address] | | | [place] [address] | + + + | Home Phone | | + + + | Preferred Language | Unknown | + + + | Marital Status | Single | + + + | Taoist Affiliation | NON | + + + | Race | White | + + + | Ethnic Group | Not or | + + + Author + + + | Author | [facility] | + + + | Organization | [facility] | + + + | Address | Unknown | + + + | Phone | Unavailable | + + + Support + + + + + | Name | Relationship | Address | Phone | + + + + + | Katalina Padilla | ECON | [address] | | | | | [place], [place] | | | | | [address] | | + + + + + | Ellie Vang | ECON | Unknown | | + + + + + Care Team Providers + +------+ + | Care Acute Care Occupational Therapist Name | Role | Phone | + +------+ + | Fadi Goodrich DO | PCP | | + +------+ + Reason for Visit + + + | Reason | Comments | + + + | Medical Records | | | Review | | + + + Encounter Details +--------+ + + + + | Date | Type | Department | Care Team | Description | +--------+ + + + + | 11/26/ | Abstract | [facility] | Ion Pandey, | Medical Records | | 2018 | | [place] [address] | [address] | Review | | | | Ave Mailcode: CH4S | [place], [place] | | | | | [facility] | [address] | | | | | and [place], | [phone] | | | | | [place] [address] | | | | | | Floor [place], [place] | | | | | | [address] | | | | | | [phone] | | | +--------+ + + + [...] [address] | | | | | | [place], [place] | | | | | | [address] | | | | | | [phone] | | | | | | | | +--------+ + + + + | 06/27/ | Telephone-S | Pre-operative | | | | 2018 | cheduled | Medicine | | | +--------+ + + + + | 06/30/ | Office | Cardiology | Randell Franks, | | | 2018 | Visit | | [address] | | | | | | [place], [place] | | | | | | [address] | | | | | | [phone] | | | | | | | | +--------+ + + + + | 07/08/ | Procedure | Surgery | | | | 2019 | Pass | | | | +--------+ + + + + documented as of this encounter Visit Diagnoses Not on filedocumented in this encounter"
--- OUTSIDE RECORDS SUMMARY | ~2019-05-10 | XMS | Encounter Summary ---
Demographics + + + | Address | [address] | | | [place] [address] | + + + | Home Phone | | + + + | Preferred Language | Unknown | + + + | Marital Status | Single | + + + | Methodist Affiliation | NON | + + + [...] + | Katalina Padilla | ECON | [address] | | | | | [place], [place] | | | | | [address] | | + + + + + | Ellie Vang | ECON | Unknown | | + + + + + Care Team Providers + +------+ + | Care Business Services Representative Name | Role | Phone | + +------+ + | Kenyatta Cardenas MD | PCP | | + +------+ + Reason for Visit +--------+ + | Reason | Comments | +--------+ + | Other | Paperwork | +--------+ + Encounter Details +--------+ + + + + | Date | Type | Department | Care Team | Description | +--------+ + + + + | 02/10/ | Telephone | Cardiology | Randell Franks, | Other (Paperwork) | | 2017 | | Preventive at [facility] | MD [address] | | | | | [address] | Ave [place], [place] | | | | | Mailcode: CH9A | [address] | | | | | [facility] | [phone] | | | | | and [facility], | | | | | | [address] | | | | | | [place], [place] | | | | | | [address] | | | | | | [phone] | | | +--------+ + + + [...] | | 2019 | Visit | | [address] | | | | | | [place], [place] | | | | | | [address] | | | | | | [phone] | | | | | | | [...] | | | | | [place], [place] | | | | | | [address] | | | | | | [phone] | | | | | | | | +--------+ + + + + | 07/08/ | Procedure | Surgery | | | | 2018 | Pass | | | | +--------+ + + + + documented as of this encounter Visit Diagnoses Not on filedocumented in this encounter"
--- OUTSIDE RECORDS SUMMARY | ~2019-05-10 | XMS | Encounter Summary ---
Demographics + + + | Address | [address] | | | [place] [address] | + + + | Home Phone [...] + | Katalina Padilla | ECON | [address] | | | | | [place], [place] | | | | | [address] | | + + + + + | Ellie Vang | ECON | Unknown | | + + + + + Care Team Providers + +------+ + | Care Portfolio Consultant Name | Role | Phone | + +------+ + | Fadi Goodrich DO | PCP | | + +------+ + Reason for Visit + + + | Reason | Comments | + + + | Discharge from | | | hospital | | + + + Encounter Details +--------+ + + + + | Date | Type | Department | Care Team | Description | +--------+ + + + + | 11/21/ | Telephone | Cardiology General | Grisel Pearl, | Discharge from | | 2016 | | at [facility] [address] | [facility] [address] [facility] | | | | [address] Mailcode: | Ave [place], [place] | | | | | [address] | [address] | | | | | Health [facility], | [phone] | | | | | | | | | | | [place], [place] | | | | | | [address] | | | | | | [phone] | | | +--------+ + + + [...] [address] | | | | | | [place], [place] | | | | | | [address] | | | | | | [phone] | | | | | | | [...] | | | | | [place], [place] | | | | | | [address] | | | | | | [phone] | | | | | | | | +--------+ + + + + | 07/08/ | Procedure | Surgery | | | | 2019 | Pass | | | | +--------+ + + + + documented as of this encounter Visit Diagnoses Not on filedocumented in this encounter"
--- OUTSIDE RECORDS SUMMARY | ~2019-05-10 | XMS | Encounter Summary ---
Demographics + + + | Address | [address] | | | [place] [address] | + + + | Home Phone | | + + + | Preferred Language | Unknown | + + + | Marital Status | Single | + + + | Restorationist Affiliation | NON | + + + [...] + | Katalina Padilla | ECON | [address] | | | | | [place], [place] | | | | | [address] | | + + + + + | Ellie Vang | ECON | Unknown | | + + + + + Care Team Providers + +------+ + | Care Community Support Worker Name | Role | Phone | + +------+ + | Kenyatta Cardenas MD | PCP | | + +------+ + Encounter Details +--------+ + + + + | Date | Type | Department | Care Team | Description | +--------+ + + + + | 03/22/ | Hospital | Radiology/Imaging | Keren Allen, | | | 2019 | Encounter | Lab at [facility] [address] | [facility] [address] | | | | | [address] [place] Mailcode: | [place], [place] | | | | | [facility] | [address] | | | | | Health [facility]aling, | [phone] | | | | | [address] | | | | | | Floor [facility] [place] | | | | | | [address] | | | | | | [phone] | | | +--------+ + + + [...] | | 0 | | | | [id number] | mouth two times | | | [...] [address] | | | | | | [place], [place] | | | | | | [address] | | | | | | [phone] | | | | | | | | +--------+ + + + + | 06/27/ | Telephone-S | Pre-operative | | | | 2018 | cheduled | Medicine | | | +--------+ + + + + | 06/30/ | Office | Cardiology | Randell Franks, | | | 2018 | Visit | | MD [address] | | | | | | [place], [place] | | | | | | [address] | | | | | | [phone] | | | | | | | [...] | + +--------+ + + + | X-RAY UGI BRIAN CASTELLON | Routin | 03/22/2019 | History of | Results for this | | | e | 11:04 AM | Frandy-en-Y gastric | procedure are in [...] + + documented in this encounter Results X-RAY UGI BRIAN CASTELLON (03/22/2019 11:04 AM PDT) + + | Specimen | + + | | + + + + + | Narrative | Performed At | + + + | EXAM: UGI WO KUB HISTORY: N&V, abdominal pain post RYGB | [facility] | | COMPARISON: 03/08/2019, 06/07/2018. TECHNIQUE: Thick and thin | RADIOLOGY VOICE | | barium was administered p.o. Radiation dose reduction technique was | RECOGNITION 2 | | maximized where appropriate using pulsed fluoroscopy and fluoro-store | | | images. Fluoro Time: 72 sec FINDINGS: Contrast passes | | | quickly to the gastric pouch without evidence of obstruction. Few | | | tertiary contractions are noted in the lower esophagus. Tiny | | | sliding hiatal hernia. No gastroesophageal reflux identified. | | | Redemonstrated narrowing at the gastrojejunostomy, slightly less | | | conspicuous compared with 06/07/2018; barium contrast passes quickly | | | through this region. The barium tablet did not definitely pass the | | | gastrojejunostomy, although it was obscured by contrast within the | | | gastric pouch. Proximal jejunal loops downstream from the | | | gastrojejunostomy are mildly prominent, although contrast quickly | | | moved into multiple loops of small bowel. IMPRESSION: 1. | | | Question residual stenosis at the gastrojejunostomy, although contrast | | | passes quickly through this region. Barium tablet is obscured by | | | contrast in the pouch. 2. Mildly prominent proximal jejunal loops | | | of uncertain clinical significance, although contrast passes quickly | | | to downstream small bowel loops without evidence of obstruction. | | | 3. Tiny sliding hiatal hernia without evidence of reflux. I have | | | personally reviewed the images and, if necessary, edited the report. I | | | agree with the report as now presented. Final signature: Jamel Montenegro | | | MD Gee 03/22/2019 1:03 PM Preliminary: Jamel Flynn MD | | | Dictation initiated: Jamel Flynn MD 03/22/2019 12:50 PM | | + + + + + | Procedure Note | + + | Service Account, Radiant Res In Interface - 03/22/2019 1:04 PM PDT EXAM: UGI WO KUB | | HISTORY: N&V, abdominal pain post RYGB COMPARISON: 03/08/2019, 06/07/2018. TECHNIQUE: | | Thick and thin barium was administered p.o. Radiation dose reduction technique was | | maximized where appropriate using pulsed fluoroscopy and fluoro-store images. Fluoro | | Time: 72 sec FINDINGS: Contrast passes quickly to the gastric pouch without evidence of | | obstruction. Few tertiary contractions are noted in the lower esophagus. Tiny sliding | | hiatal hernia. No gastroesophageal reflux identified. Redemonstrated narrowing at the | | gastrojejunostomy, slightly less conspicuous compared with 06/07/2018; barium contrast | | passes quickly through this region. The barium tablet did not definitely pass the | | gastrojejunostomy, although it was obscured by contrast within the gastric pouch. | | Proximal jejunal loops downstream from the gastrojejunostomy are mildly prominent, | | although contrast quickly moved into multiple loops of small bowel. IMPRESSION: 1. | | Question residual stenosis at the gastrojejunostomy, although contrast passes quickly | | through this region. Barium tablet is obscured by contrast in the pouch. 2. Mildly | | prominent proximal jejunal loops of uncertain clinical significance, although contrast | | passes quickly to downstream small bowel loops without evidence of obstruction. 3. Tiny | | sliding hiatal hernia without evidence of reflux. I have personally reviewed the images | | and, if necessary, edited the report. I agree with the report as now presented. Final | | signature: Jamel Flynn MD 03/22/2019 1:03 PM Preliminary: Jamel Flynn MD | | Dictation initiated: Jamel Flynn MD 03/22/2019 12:50 PM | | | | | |IMPRESSION: | | | |1. Question residual stenosis at the gastrojejunostomy, although contrast passes quickly th rough this region. Barium tablet is obscured by contrast in the pouch. | | | |2. Mildly prominent proximal jejunal loops of uncertain clinical significance, although con trast passes quickly to downstream small bowel loops without evidence of obstruction. | | | |3. Tiny sliding hiatal hernia without evidence of reflux. | | | |I have personally reviewed the images and, if necessary, edited the report. I agree with e report as now presented. | | | |Final signature: Jamel Flynn MD 03/22/2019 1:03 PM | |Preliminary: Jamel Flynn MD | |Dictation initiated: Jamel Flynn MD 03/22/2019 12:50 PM | + + + +---------+ + [...]
--- OUTSIDE RECORDS SUMMARY | ~2019-05-10 | XMS | Encounter Summary ---
Demographics + + + | Address | [address] | | | [place] [address] | + + + | Home Phone | | + + + | Preferred Language | Unknown | + + + | Marital Status | Single | + + + | Adventist Affiliation | NON | + + + | Race | White | + + + | Ethnic Group | Not or | + + + Author + + + | Author | [facility] | + + + | Organization | [facility] | + + + | Address | Unknown | + + + | Phone | Unavailable | + + + Support + + + + + | Name | Relationship | Address | Phone | + + + + + | Katalina Padilla | ECON | [address] | | | | | [place], [place] | | | | | [address] | | + + + + + | Ellie Vang | ECON | Unknown | | + + + + + Care Team Providers + +------+ + | Care Airline Dispatcher Name | Role | Phone | + +------+ + PCP | Unavailable | + +------+ + Encounter Details +--------+ + + + + | Date | Type | Department | Care Team | Description | +--------+ + + + + | 03/25/ | Results | Neurosurgery [address] | [address], | | | 1991 | Only | [address] | ,PhD | | | | | [address] Mailcode:OP14B | | | | | | [facility] | | | | | | [place], [place] | | | | | | [address] | | | | | | [phone] | | | +--------+ + + + [...] [address] | | | | | | [place], [place] | | | | | | [address] | | | | | | [phone] | | | | | | | [...] | | | | | [address] [facility] [place] | | | | | | [address] | | | | | | [phone] | | | | | | | [...] | + +--------+ + + + | CEREBRAL 2 VESSELS | Routin | 03/25/1994 | | Results for this | | | e | 11:11 AM | | procedure are in the | | | | PDT | | results section. | + +--------+ + + + documented in this encounter Results CEREBRAL 2 VESSELS (03/25/1994 11:11 AM PDT) + + + + + + | Component | Value | Ref Range | Performed | Pathologist | | | | | At | Signature | + + + + + + | CEREBRAL 2 | Radiologist 1: MARK, | | | | | VESSELS | Jose Carlos CHANDRA, | | | | | | DYLAN | | | | | | | | | | | | 01 16 | | | | | | 46 69 NEUROANGIOGRAM | | | | | | INTERPRETIVE REPORT: | | | | | | 03/25/94 | | | | | | | | | | | | | | | | | | Dictated: | | | | | | 03/25/94 REFERRING | | | | | | PHYSICIAN: Dr. Monroe | | | | | | Noah [place] | | | | | | [address] | | | | | | [place] [address] | | | | | | | | | | | | [place] | | | | | | [address] | | | | | | | | | | | | Nilda Velazquez | | | | | | | | | | | | Dr. Trell Collazo | | | | | | | | | | | | Dr. 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 Follow-up | | | | | | angiogram inApril 1992 | | | | | | demonstrated partial | | | | | | recanalization. She is | | | | | | on Coumadinand is | | | | | | referred for additional | | | | | | diagnostic angiography | | | | | | to determinewhether | | | | | | Coumadin can be | | | | | | withdrawn. STUDY: | | | | | | Right CCA and ICA | | | | | | angiogram. FINDINGS: | | | | | | The right CCA | | | | | | demonstrates a normal | | | | | | cervical | | | | | | carotidbifurcation. | | | | | | The right ICA | | | | | | injection demonstrates a | | | | | | normal arterialsystem | | | | | | with filling of both | | | | | | anterior and posterior | | | | | | communicatingarteries. | | | | | | The anterior third of | | | | | | the sagittal sinus is | | | | | | partly occludedand | | | | | | drains forward. The | | | | | | posterior two-thirds are | | | | | | patent and | | | | | | drainprimarily into the | | | | | | torcula and right | | | | | | transverse sinus to the | | | | | | sigmoidsinus and jugular | | | | | | vein. The deep | | | | | | cerebral venous system | | | | | | fills thevein of Jacobo, | | | | | | straight sinus, and then | | | | | | to the left transverse | | | | | | sinusprimarily. | | | | | | IMPRESSION: Significant | | | | | | resolution of dural | | | | | | sinus thrombosis. The | | | | | | posterior twothirds of | | | | | | the superior sagittal | | | | | | sinus, torcula, and the | | | | | | righttransverse sinus | | | | | | fill normally. The | | | | | | deep cerebral venous | | | | | | systemdrains primarily | | | | | | into the left transverse | | | | | | sinus. OPERATIVE | | | | | | REPORT: 03/25/94 | | | | | | PREOPERATIVE DIAGNOSIS: | | | | | | Dural sinus | | | | | | thrombosis. | | | | | | POSTOPERATIVE DIAGNOSIS: | | | | | | Dural sinus | | | | | | thrombosis. ANESTHESIA: | | | | | | Local infiltration of | | | | | | 1% Lidocaine. DURATION | | | | | | OF PROCEDURE: Begun at | | | | | | 0950, terminated at | | | | | | 1110. FLUORO-TIME: | | | | | | [employer] 5.4 minutes. | | | | | | The patient was given a | | | | | | full explanation of the | | | | | | procedure includingthe | | | | | | risks, benefits, | | | | | | alternatives, and | | | | | | indications. Informed | | | | | | Consentwas obtained. | | | | | | OPERATION #1: | | | | | | Surgical catheterization | | | | | | of right femoral | | | | | | artery. OPERATION #2: | | | | | | Catheterization of | | | | | | thoracic aortic arch. | | | | | | OPERATION #3: | | | | | | Catheterization of right | | | | | | CCA. OPERATION #4: | | | | | | Angiogram of right CCA, | | | | | | cervical region, in | | | | | | thelateral projection. | | | | | | OPERATION #5: | | | | | | Selective | | | | | | catheterization of right | | | | | | ICA. OPERATION #6: | | | | | | Angiogram of right ICA | | | | | | in the Yaritza's and | | | | | | lateralprojections. | | | | | | DESCRIPTION OF | | | | | | PROCEDURE: The patient | | | | | | was taken to the | | | | | | NeuroangioSuite and chayo | | | | | | supine on the table. | | | | | | After local | | | | | | infiltration with | | | | | | 1%Lidocaine, a 19 gauge | | | | | | single-wall puncture | | | | | | needle was introduced | | | | | | intothe right femoral | | | | | | artery. A 5.5 Romansh | | | | | | Ozzy catheter was | | | | | | navigatedover a 0.035" | | | | | | Donal coated Bentson | | | | | | guide wire into the | | | | | | right femoralartery, | | | | | | abdominal aorta, and the | | | | | | thoracic aortic arch. | | | | | | The rightinnominate | | | | | | and then the right CCA | | | | | | was catheterized. DSA | | | | | | was obtainedof the | | | | | | cervical region in the | | | | | | lateral projection. | | | | | | The right ICA | | | | | | wasselectively | | | | | | catheterized. DSAs | | | | | | were obtained in the AP | | | | | | and lateralprojections | | | | | | to demonstrate primarily | | | | | | the dural sinuses. | | | | | | The catheterwas | | | | | | removed. There were no | | | | | | complications. END OF | | | | | [...]
--- OUTSIDE RECORDS SUMMARY | ~2019-05-10 | XMS | Encounter Summary ---
Demographics + + + | Address | [address] | | | [place] [address] | + + + | Home Phone [...] + | Katalina Padilla | ECON | [address] | | | | | [place], [place] | | | | | [address] | | + + + + + | Ellie Vang | ECON | Unknown | | + + + + + Care Team Providers + +------+ + | Care Medical Insurance Clerk Name | Role | Phone | [...] | +--------+ + + + + | 04/07/ | Hospital | Endoscopic | Tal Lund | | | 2019 | Encounter | Procedural Unit at | E, MD [address] | | | | | [facility] [address] | [place], [place] | | | | | [place] Mailcode: | [address] | | | | | [facility] | [phone] | | | | | and [address], | | | | | | [address] | | | | | | [place], [place] | | | | | | [address] | | | | | | [phone] | | | +--------+ + + + [...] + + + | Blood Pressure | 118/71 | 04/07/2019 12:15 PM | | | | | PDT | | + + + + + | Pulse | 85 | 04/07/2019 12:15 PM | | | | | PDT | | + + + + + | Temperature | 37.1 C (98.8 F) | 04/07/2019 10:10 AM | | | | | PDT | | + + + + + | Respiratory Rate | 24 | 04/07/2019 11:25 AM | | | | | PDT | | + + + + + | Oxygen Saturation | 98% | 04/07/2019 12:15 PM | | | | | PDT | | + + + + + | Inhaled Oxygen | - | - | | | Concentration | | | | + + + + + | Weight | - | - | | + + + + + | Height | - | - | | + + + + + | Body Mass Index | - | - | | + [...] + documented as of this encounter Discharge Instructions Instructions Keerthi Bernard RN - 04/07/2019[place] [facility] Instructions after EGD (Upper Endos copy) You may resume your normal diet and medications unless told otherwise. Medications The medications you received for your procedure can cause you to be forgetful and drowsy an d will take the remainder of the day to wear off. DO NOT drink alcohol, drive, operate heavy machinery, sign legal documents, or make major d ecisions until tomorrow. Common After Effects Mild abdominal pain, bloating, and gas. Sore throat. You may treat it with throat lozenges and/or gargle with warm salt water. You may bruise at your IV site. If you have pain, redness, or swelling at your IV site a pply a warm compress. Complications Call your GI doctor if you have: Abnormal pain or any new unexplained symptoms. Shortness of breath, chest or neck pain. Vomiting blood or rectal bleeding. Fever above 101.5 Redness, pain, or swelling at your IV site that is not relieved with warm compress. For any questions related to your procedure, call Thursday- Thursday 8:00- 4:30 Call the endoscopy department toll free ext. [phone] or . After business hours or on weekends and holiday Hospital Radiographer Angiogram toll free [phone] ext. [phone] and have the GI doctor rodent control worker paged. The provider who performed your procedure: Dr. Lund Results of your EGD: Normal post surgical anatomy seen. Follow up Appointments with: Your referring provider as needed. Thank you for choosing [facility]! Your primary care provider or referring provider will receive copies of the procedure repor t and all the pathology reports with recommendations for treatment if needed. If noted above that biopsies were taken or polyps removed we will receive the results in ap proximately 1 week. If you have not heard from us after 2 weeks please call for your results . documented in this encounter Medications at Time [...] | | 0 | | | | [id number] | mouth two times | | | [...] | | | | | | | leonid/stewart | | | | | | | [...] affected | 30 g | 0 | 03/19/20 | | | unit/gram topical | area [...] documented as of this encounter Progress Notes Tal Lund MD - 04/07/2019 11:18 AM PDTFormatting of this note might be differen t from the original. PRE PROCEDURE NOTE: MR# [id number] Subjective: Elzbieta Cristina is a 44 y.o. female who presents today for EGD to investigate post-bariatric n/v and abdominal pain. Patient History Reviewed Medications reviewed Allergies: Allergies as of 03/24/2019 - Fully Reviewed 03/01/2019 Allergen Reaction Noted Amoxicillin Unknown 05/13/1993 Benadrilina [diphenhydramine hcl] Hives 10/07/2012 Parlodel [bromocriptine] Unknown 04/14/2013 Penicillin Hives 01/01/2017 Pt NPO for 7 hrs. ROS: All others negative. Objective: Vital Signs: BP 106/61 (BP Location: Right upper arm, Patient Position: Lying left side) | Pulse 77 | Temp 37.1 C (98.8 F) | Resp 15 | SpO2 100% Neuro: Patient oriented X3. Mental status clear and intact Mallampati Score: IV Neck negative Respiratory: Lungs clear to auscultation bilaterally with good air exchange Cardiovascular: carotid pulse is wnl; no bruit Abdomen: soft, normal active bowel sounds, nontender, no masses, no organomegaly Impression Patient deemed appropriate candidate for planned procedure and sedation. ASA:3 Plan Proceed with EGD PARQ held and all questions addressed. Consent obtained. See procedure note 04/07/2019 documented in th is encounter Plan of Treatment +--------+ + + + + | Date | Type | Specialty | Care Team | Description | +--------+ + + + + | 05/13/ | Office | Plastic Surgery | Archie Ybarra MD | | | 2018 | Visit | | [address] | | | | | | [place], [place] | | | | | | [address] | | | | | | [phone] | | | | | | | [...] | | | | | [place], [place] | | | | | | [address] | | | | | | [phone] | | | | | | | [...] +--------+ + + + | EGD | Urgent | 04/07/2019 | History of | Results for this | | | | 10:53 AM | Frandy-en-Y gastric | procedure are [...] + + documented in this encounter Results EGD (04/07/2019 10:53 AM PDT) + + | Specimen | + + | | + + + + + | Narrative | Performed At | + + + | MRN: | [facility] | | [id number] Date: 04/07/2019Patient Name: Elzbieta Curtis #: | ENDOSCOPY | | [id number] of : 1975CSN: [id number] Type: | | | AmbulatoryRoom: Endo 5Procedure: Upper GI | | | endoscopyIndications: Generalized abdominal pain, Nausea | | | with vomitingProviders: TAL LUND MD | | | (Doctor), KEERTHI BERNARD RN (Nurse), | | | EREN SLATER (Receiving Lead)Referring MD: SYLVIA Kilpatrick | | | KENNY [...] | | | The Olympus [id number] Endoscope #[id number] | | | was introduced through the [...] in this encounter Administered Medications + +--------+ +-------+------+------+ | Medication Order | MAR | Action | Dose | Rate | Site | | | Action | Date | | | | + +--------+ +-------+------+------+ | aluminum-magnesium | Given | 04/07/20 | 30 mL | | | | hydroxide-simethicone (MAALOX; | | 19 12:35 | | | | | MYLANTA) 200-200-20 mg/5 mL | | PM PDT | | | | | suspension 30 mL 30 mL, oral, | | | | | | | ONCE, 1 dose, Jasmyne 04/07/19 at 1300 | | | | | | + +--------+ +-------+------+------+ +---+---+ | | | +---+---+ + +-------+ +--------+---+---+ | fentaNYL (SUBLIMAZE) injection | Given | 04/07/20 | 50 mcg | | | | intravenous, INTRAPROCEDURE PRN, | | 19 11:05 | | | | | Starting Jasmyne 04/07/19 at 1105, | | AM PDT | | | | | Until Jasmyne 04/07/19 at 1105 | | | | | | + +-------+ +--------+---+---+ +---+---+ | | | +---+---+ + +-------+ +--------+---+---+ | fentaNYL (SUBLIMAZE) injection | Given | 04/07/20 | 50 mcg | | | | intravenous, INTRAPROCEDURE PRN, | | 19 11:09 | | | | | Starting Jasmyne 04/07/19 at 1109, | | AM PDT | | | | | Until Jasmyne 04/07/19 at 1109 | | | | | | + +-------+ +--------+---+---+ +---+---+ | | | +---+---+ + +-------+ +--------+---+---+ | fentaNYL (SUBLIMAZE) injection | Given | 04/07/20 | 50 mcg | | | | intravenous, INTRAPROCEDURE PRN, | | 19 11:16 | | | | | Starting Jasmyne 04/07/19 at 1116, | | AM PDT | | | | | Until Jasmyne 04/07/19 at 1116 | | | | | | + +-------+ +--------+---+---+ +---+---+ | | | +---+---+ + +-------+ +--------+---+---+ | fentaNYL (SUBLIMAZE) injection | Given | 04/07/20 | 50 mcg | | | | intravenous, INTRAPROCEDURE PRN, | | 19 11:18 | | | | | Starting Jasmyne 04/07/19 at 1118, | | AM PDT | | | | | Until Jasmyne 04/07/19 at 1118 | | | | | | + +-------+ +--------+---+---+ +---+---+ | | | +---+---+ + +-------+ +-------+---+---+ | lidocaine viscous (XYLOCAINE | Given | 04/07/20 | 15 mL | | | | VISCOUS) 2 % mucosal solution | | 19 12:35 | | | | | Mouth/Throat, INTRAPROCEDURE PRN, | | PM PDT | | | | | Starting Jasmyne 04/07/19 at 1104, | | | | | | | Until Jasmyne 04/07/19 at 1235 | | | | | | + +-------+ +-------+---+---+ +-------+ +------+---+---+ | Given | 04/07/20 | 8 mL | | | | | 19 11:04 | | | | | | AM PDT | | | | +-------+ +------+---+---+ +---+---+ | | | +---+---+ + +-------+ +-------+---+---+ | lidocaine viscous (XYLOCAINE | Given | 04/07/20 | 15 mL | | | | VISCOUS) 2 % mucosal solution | | 19 12:35 | | | | | Mouth/Throat, ONCE, 1 dose, Jasmyne | | PM PDT | | | | | 04/07/19 at 1300 | | | | | | + +-------+ +-------+---+---+ +---+---+ | | | +---+---+ + +-------+ +------+---+---+ | midazolam (PF) (VERSED) | Given | 04/07/20 | 2 mg | | | | injection INTRAPROCEDURE PRN, | | 19 11:05 | | | | | Starting Jasmyne 04/07/19 at 1105, | | AM PDT | | | | | Until Jasmyne 04/07/19 at 1105 | | | | | | + +-------+ +------+---+---+ +---+---+ | | | +---+---+ + +-------+ +------+---+---+ | midazolam (PF) (VERSED) | Given | 04/07/20 | 2 mg | | | | injection INTRAPROCEDURE PRN, | | 19 11:09 | | | | | Starting Jasmyne 04/07/19 at 1109, | | AM PDT | | | | | Until Jasmyne 04/07/19 at 1109 | | | | | | + +-------+ +------+---+---+ +---+---+ | | | +---+---+ + +-------+ +------+---+---+ | midazolam (PF) (VERSED) | Given | 04/07/20 | 2 mg | | | | injection INTRAPROCEDURE PRN, | | 19 11:13 | | | | | Starting Jasmyne 04/07/19 at 1113, | | AM PDT | | | | | Until Jasmyne 04/07/19 at 1113 | | | | | | + +-------+ +------+---+---+ +---+---+ | | | +---+---+ + +-------+ +------+---+---+ | midazolam (PF) (VERSED) | Given | 04/07/20 | 1 mg | | | | injection INTRAPROCEDURE PRN, | | 19 11:16 | | | | | Starting Jasmyne 04/07/19 at 1116, | | AM PDT | | | | | Until Jasmyne 04/07/19 at 1116 | | | | | | + +-------+ +------+---+---+ +---+---+ | | | +---+---+ + +-------+ +------+---+---+ | midazolam (PF) (VERSED) | Given | 04/07/20 | 1 mg | | | | injection INTRAPROCEDURE PRN, | | 19 11:19 | | | | | Starting Jasmyne 04/07/19 at 1119, | | AM PDT | | | | | Until Jasmyne 04/07/19 at 1119 | | | | | | + +-------+ +------+---+---+ +---+---+ | | | +---+---+ documented in this encounter"
--- OUTSIDE RECORDS SUMMARY | ~2019-05-10 | XMS | Encounter Summary ---
Demographics + + + | Address | [address] | | | [place] [address] | + + + | Home Phone | | + + + | Preferred Language | Unknown | + + + | Marital Status | Single | + + + | Yazidi Affiliation | NON | + + + [...] + | Katalina Padilla | ECON | [address] | | | | | [place], [place] | | | | | [address] | | + + + + + | Ellie Vang | ECON | Unknown | | + + + + + Care Team Providers + +------+ + | Care Fuel Cell Designer Name | Role | Phone | + [...] from | | 2016 | | at [facility] [address] | ROOM SERVER [address] [facility] | | | | [place] Mailcode: | [address] [place], [place] | | | | | [address] | [address] | | | | | [facility], | [phone] | | | | | | | | | | | [place], [place] | | | | | | [address] | | | | | | [phone] | | | +--------+ + + + [...] [address] | | | | | | [place], [place] | | | | | | [address] | | | | | | [phone] | | | | | | | [...] | | | | | [place], [place] | | | | | | [address] | | | | | | [phone] | | | | | | | | +--------+ + + + + | 07/08/ | Procedure | Surgery | | | | 2019 | Pass | | | | +--------+ + + + + documented as of this encounter Visit Diagnoses Not on filedocumented in this encounter"
--- OUTSIDE RECORDS SUMMARY | ~2019-05-10 | XMS | Encounter Summary ---
Demographics + + + | Address | [address] | | | [place] [address] | + + + | Home Phone | | + + + | Preferred Language | Unknown | + + + | Marital Status | Single | + + + | Rastafarian Affiliation | NON | + + + [...] + | Katalina Padilla | ECON | [address] | | | | | [place], [place] | | | | | [address] | | + + + + + | Ellie Vang | ECON | Unknown | | + + + + + Care Team Providers + +------+ + | Care Rough Planer Tender Name | Role | Phone | [...] | | | | | | | [facility] | | | | | | | [facility] and | | | | | | | [facility], | | | | | | | [address] | | | | | | | [place], [place] | | | | | | | [address] | | | | | | | Phone: | | | | | | | [phone] | | | | | | | Fax: | | | | | | | [phone] | +--------+--------+ + + + + Encounter Details +--------+---------+ + + + | Date | Type | Department | Care Team | Description | +--------+---------+ + + + | 08/28/ | Office | Digestive Health | [address] | Morbid obesity (HCC) | | 2015 | Visit | Center at [facility] [address] | [address] | (Primary Dx); Type | | | | [address] | Lesly Gutiérrez [place], | 2 diabetes mellitus | | | | Mailcode: Center | [place] [address] | (HCC) | | | | for Health and | | | | | | [facility] [address] | | | | | | [place], [place] | | | | | | [address] | | | | | | [phone] | | | +--------+---------+ + + + [...] of Visit: 12:29 to 12:57 (28 minutes dnrm-gv-uabz with patient) SUBJECTIVE: Trying to follow a [...] post-surgery diet progression. 4. Call or send Contextbrokerhart message to dietitian with any questions. Contact information was provided. Follow up with dietitian prior to surgery to review post-surgical recommendations. Yuli Childs RD, CNSC, LD Pager# [phone] documented in this enco unter Plan of Treatment +--------+ + + + + | Date | Type | Specialty | Care Team | Description | +--------+ + + + + | 05/13/ | Office | Plastic Surgery | Archie Ybarra MD | | | 2018 | Visit | | [address] | | | | | | [place], [place] | | | | | | [address] | | | | | | [phone] | | | | | | | [...] | | | | | [place], [place] | | | | | | [address] | | | | | | [phone] | | | | | | | [...] | + +--------+ + + + | DE MNT RE-ASSESSMNT | Routin | 08/28/2014 | Morbid obesity | | | X15MIN | e | 4:45 PM | ([facility]) Type 2 | | | | | PST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 | | | | | | (HCC) [...]
--- OUTSIDE RECORDS SUMMARY | ~2019-05-10 | XMS | Encounter Summary ---
Demographics + + + | Address | [address] | | | [place] [address] | + + + | Home Phone | | + + + | Preferred Language | Unknown | + + + | Marital Status | Single | + + + | Bahai Affiliation | NON | + + + | Race | White | + + + | Ethnic Group | Not or | + + + Author + + + | Author | [facility] | + + + | Organization | [facility] | + + + | Address | Unknown | + + + | Phone | Unavailable | + + + Support + + + + + | Name | Relationship | Address | Phone | + + + + + | Katalina Padilla | ECON | [address] | | | | | [place], [place] | | | | | [address] | | + + + + + | Ellie Vang | ECON | Unknown | | + + + + + Care Team Providers + +------+ + | Care Head Of Design Name | Role | Phone | + +------+ + | Fadi Goodrich DO | PCP | | + +------+ + Reason for Visit + + + | Reason | Comments | + + + | Committee Review | | | Decision | | + + + Encounter Details +--------+ + + + + | Date | Type | Department | Care Team | Description | +--------+ + + + + | 03/22/ | Committee | Digestive Health | Raymond Gilman, | Committee Review | | 2015 | Review | Center at [facility] [address] | MD | Decision | | | [address] | | | | | | Mailcode: [place] | | | | | | [facility] and | | | | | | [facility] 2 | | | | | | [place], [place] | | | | | | [address] | | | | | | [phone] | | | +--------+ + + + [...] [address] | | | | | | [place], [place] | | | | | | [address] | | | | | | [phone] | | | | | | | [...] | | | | | [place], [place] | | | | | | [address] | | | | | | [phone] | | | | | | | | +--------+ + + + + | 07/08/ | Procedure | Surgery | | | | 2018 | Pass | | | | +--------+ + + + + documented as of this encounter Visit Diagnoses Not on filedocumented in this encounter"
--- OUTSIDE RECORDS SUMMARY | ~2019-05-10 | XMS | Encounter Summary ---
Demographics + + + | Address | [address] | | | [place] [address] | + + + | Home Phone | | + + + | Preferred Language | Unknown | + + + | Marital Status | Single | + + + | Zoroastrianism Affiliation | NON | + + + [...] [place], [place] | | | | | [address] | | + + + + + | Ellie Vang | ECON | Unknown | | + + + + + Care Team Providers + +------+ + | Care Gaming Manager Name | Role | Phone | [...] | [place] | | | with GROUT WORKER | | hypertension | [address] | | | | | Right | [address] | [place] | | | | | heart | [place], [place] | [place], | | | | | failure | [address] | [place] | | | | | ([facility]) Type | Phone: | [address] | | | | | 2 diabetes | [phone] | | | | | | mellitus | Fax: | | | | | | without | [phone] | | | | | | complication | | | | | | | , with | | | | | | | long-term | | | | | | | current use | | | | | | | of insulin | | | | | | | ([facility]) | | | +--------+ + + + [...] | | | [address] | [facility] [address] | (Primary Dx); | | | | Mailcode: Center | [place], [place] | 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[facility] and | [address] | with insulin therapy | | | | [address] | | ([facility]) | | | | [place], [place] | | | | | | [address] | | | | | | [phone] | | | +--------+---------+ + + + [...] Follow-Up Patient referred by: Randell Franks MD [address] [place] [address] Documented time of visit: 10:33 to 10:55 (22 minutes ytkx-tu-gwsw with patient) Surgery: Gastric Bypass Date of [...] vagina Allergic rhinitis Anemia Anxiety Bipolar disorder ([facility]) Chronic wound infection of abdomen from 2010 Cough Depression Diverticulitis of colon Dizziness Glaucoma Heart burn Hemorrhoids Hernia of abdominal wall Incisional hernia, incarcerated 2012 Insomnia Irregular periods Kidney stone Leaking of urine Leg sore Lymphedema Morbid obesity with body mass index of 70 and over in adult ([facility]) Myalgia and myositis Nausea Neck pain Numbness Osteoarthritis of knee Palpitations Pneumonia Shortness of breath Staphylococcal infection Stroke ([facility]) TIA (transient ischemic attack) due to Bromocriptine Tinea corporis UTI (urinary tract infection) Food logs: Yes-pen and paper Food choices: ground chicken, eggs, creamed soups (mushroom or tomato), cream of wheat occ, cottage cheese, german yogurt-light and fit, protein bar from [employer]. Unable to keep protei n shakes down. Fluid choices: water-4-5 bottles per day Supplementation: Flinstones, iron, vitamin D, vitamin C, Citracal supplement x 2 in the mor uesebio and 2 at night, magnesium, potassium, A19-kyjuvnup today Assessment: Vomiting likely due to volume [...] multivitamin & mineral (with iron) supplement, 2/day -6391-1312 mg calcium citrate with vitamin D/day (take in divided doses, not within 2 hour s of multivitamin or iron supplement) -500 mcg/day sublingual B12 supplement (or monthly injections) Continued to reinforce importance of mindful eating. Continue to increase physical activity. Follow up in [address],LD Pager# [phone] Phone: [phone] documented in this e ncounter Plan of Treatment +--------+ + + + + | Date | Type | Specialty | Care Team | Description | +--------+ + + + + | 05/13/ | Office | Plastic Surgery | Archie Ybarra MD | | | 2019 | Visit | | [address] | | | | | | [place], [place] | | | | | | [address] | | | | | | [phone] | | | | | | | [...] | | | | | [address], [place] | | | | | | [address] | | | | | | [phone] | | | | | | | [...] | + +--------+ + + + | MA MNT RE-ASSESSMNT | Routin | 04/01/2018 | [...] Diabetes mellitus with insulin therapy (HCC) | + + documented in this encounter
--- OUTSIDE RECORDS SUMMARY | ~2019-05-10 | XMS | Encounter Summary ---
Demographics + + + | Address | [address] | | | [place] [address] | + + + | Home Phone [...] [place], [place] | | | | | [address] | | + + + + + | Ellie Vang | ECON | Unknown | | + + + + + Care Team Providers + +------+ + | Care Licensing Analyst Name | Role | Phone | [...] [address] | | | | | | [facility] [place] | | | | | | [address] | | | | | | [phone] | | | | | | | [...] | | | | | [address], [place] | | | | | | [address] | | | | | | [phone] | | | | | | | | +--------+ + + + + | 07/08/ | Procedure | Surgery | | | | 2019 | Pass | | | | +--------+ + + + + documented as of this encounter Visit Diagnoses Not on filedocumented in this encounter"
--- OUTSIDE RECORDS SUMMARY | ~2019-05-10 | XMS | Encounter Summary ---
Demographics + + + | Address | [address] | | | [place] [address] | + + + | Home Phone [...] [place], [place] | | | | | [address] | | + + + + + | Ellie Vang | ECON | Unknown | | + + + + + Care Team Providers + +------+ + | Care Tooth Polisher Name | Role | Phone | + [...] Surgery | 6A Intra Op [facility] | Shahid Cantu, | INCISIONAL HERNIA | | 2015 | | [facility] | [address] | REPAIR | | | | Admitting Desk | [address] | | | | | Located on the 9 | [place], [place] | | | | | floor [address] | [address] | | | | | [address] | [phone] | | | | | [place], [place] | | | | | | [address] | | | +--------+---------+ + + + [...] port site who was transferre d to [facility] for concern of an incarcerated hernia. On [...] mouth once daily. , Historical Med CALCIUM [id number]-[id number]-GENIS ORAL Take 1 tablet by mouth two [...] 10:40 AM Randell Franks Cardiology Preventive at [facility] [phone] Cardiology 04/09/2015 1:00 PM Egs Ppv Tra Trauma Emergency General Surgery at [facility] [phone] TRAUMA [facility]ENTE Outstanding labs/studies: None Discharging Physician: GABO LANGSTON MD Attending Physician: Dr. Cantu PCP: Fadi Goodrich DO Signed: GABO LANGSTON MD Pager #[phone] Surgical Fountain Operator [facility] Associated attestation - Tye Carrillo DO - 03/12/2015 9:12 AM PDTAttending: I discussed this patient with the resident and agree with the assessment and plan as outlin ed in this note and participated in the planning of care. Tye Carrillo DO, SIDRA, FACS Division of Trauma, Critical Care & Acute Care Surgery [facility] [phone] documented in this encounter Medications at Time of Discharge + + + +---------+--------+ + | Medication | Sig | Dispensed | Refills | Start | End Date | | | | | | Date | | + + + +---------+--------+ + | CALCIUM | Take 2 tablets by | | 0 | | | | [id number]-GEN | mouth two times | | | | | | IS ORAL | daily. | | | | | + + + +---------+--------+ + | magnesium oxide | Take 400 mg by mouth | | 0 | | | | 400 mg oral tablet | once daily. | | | | | + + + +---------+--------+ + | thyroid (ARMOUR | Take 30 [...] might be differ ent from the original. [facility] DEPARTMENT OF SURGERY EMERGENCY GENERAL SURGERY Division [...] obesity with known ventral hernias transferred to [facility] for surgical managem ent of ventral hernia, now s/p repair. Post surgical pain: -patient ready for d/c, discussed f/u. Patient lives far away and has other appointments at [facility]. Will attempt to coordinate appointments. Discharge Plan: D/c today GABO LANGSTON MD Pager #[phone] Surgical Fountain Operator [facility] Nataliia Mendez, Salomón rose R - 03/02/2015 1:12 PM PDT [facility] DEPARTMENT OF SURGERY EMERGENCY GENERAL SURGERY Division of Trauma and Critical Care Attending Physician: Shahid Cantu MD Progress Note Note Date: 03/02/2015 Admission Date: 2015 DYLAN ROMERO, Hospital Day #2 40 F PMH morbid obesity (BMI 71 today), DM2, depression, GERD, h/o stroke at age 18, and kn own ventral hernias transferred to [facility] for surgical treatment of suspected incarcerated yuriy [...] obesity with known ventral hernias transferred to [facility] for surgical managem ent of ventral hernia, [...] will be robel ing her home to [place], [place]. CALVIN ROMERO MD PGY-1 Anesthesiology Pager: [phone] [facility] A [address] [place] [phone] Karthik Oneill MD - 03/02/2015 8:26 AM [id number] Calvin William Md - 03/01/2015 5:34 PM PDT Brief [place] Operative Note: 40 F PMH morbid obesity (BMI 71 today), DM2, depression, GERD, h/o stroke at age 18, and kn own ventral hernias transferred to [facility] for surgical treatment of incarcerated ventral herni [...] control CALVIN ROMERO MD PGY-1 Anesthesiology Pager: [phone] signed by Calvin Romero Md at 03/01/2015 [...] Flannery | | | | | | [place], [place] | | | | | | [address] | | | | | | [phone] | | | | | | | [...] | | | | | [place], [place] | | | | | | [address] | | | | | | [phone] | | | | | | | [...] | | Attending Surgeon: Shahid Cantu MD Repairer Helper(s): Howie Angeles MD, R5 | | Karthik [...] end of the case. Dr. Perez | Analisa Cantu was present and scrubbed for the entirety of the case.Karthik Gonzalez, MDPursuant | | to federal Medicare and Medicaid regulations I was present for the entire | | procedure.Shahid Dailey ProfessorTrauma, Critical Care & Acute Care | | SurgeryPRINCE Galo/JESD: 03/02/2015 08:25:39DT: 03/02/2015 09:15:57Job #: | | [id number] | | | |Dr. Chris Cantu was present and scrubbed for the entirety of the case. | | | | | | | |Karthik Gonzalez MD | | | |Pursuant to federal Medicare and Medicaid regulations I was present for the entire procedur e. | | | | | | | |Shahid Cantu MD | |Floral Specialist | |Trauma, Critical Care & Acute Care Surgery | | | | | | | |Shahid Cantu MD | |TBK/MODL | | | | | | /[id number] | + ---+ CAPILLARY BLOOD GLUCOSE (NO [...] AMES | [address] | [place], [place] | | | JUSTINE DAWN OF CARE | [address] | [address] | | | TESTS | | | [...] [facility] | [address] | [place], [place] | | | [place] POINT OF CARE | [address] | [address] | | | TESTS | | | [...] + | [facility] | [address] | [place], [place] | | | [place] POINT OF CARE | [address] | [address] | | | TESTS | | | [...] AMES | [address] | [place], [place] | | | JUSTINE [facility]WN OF CARE | [address] | [address] | | | TESTS | | | [...] [facility] | [address] | [place], [place] | | | [place] POINT OF CARE | [address] | [address] | | | TESTS | | | [...] + | [facility] | [address] | [place], [place] | | | [place] POINT OF CARE | [address] | [address] | | | TESTS | | | [...] | + + + + + | [facility] | [address] | [place] [address] | | | SERVICES, CORE | [address] [...] | | | LABORATORY | | | [place] | | | SERVICES, | | | [...] | + + + + + | [facility] | [address] | [place] [address] | | | SERVICES, LYDIA | [address] | | | [...] + | [facility] | [address] | [place], [place] | | | JUSTINE DAWN OF JAKY | [facility] | [address] | | | TESTS | | | [...] [place] | [address] | [place], [place] | | | JUSTINE DAWN OF CARE | [address] | [address] | | | TESTS | | | [...] AMES | [address] | [place], [place] | | | JUSTINE DAWN OF JAKY | [facility] | [address] | | | TESTS | | | [...] [facility] | [address] | [place], [place] | | | JUST[facility] DAWN OF CARE | [facility] | [address] | | | TESTS | | | [...] (H) | 60 - 99 mg/dL | [facility] - | | | GLUCOSE, [...] [facility] | [address] | [place], [place] | | | JUSTINE DAWN OF CARE | [address] | [address] | | | TESTS | | | [...] | + + + + + | [facility] | [address] | [place] [address] | | | LYDIA RANGEL | [address] [...] (H) | 60 - 99 mg/dL | [facility] - | | | GLUCOSE, [...] + + + + + | [facility] | [address] | [place], [place] | | | JUSTINE DAWN OF [facility] | [address] | [address] | | | TESTS | | | [...]
--- OUTSIDE RECORDS SUMMARY | ~2019-05-10 | XMS | Encounter Summary ---
Demographics + + + | Address | [address] | | | [place] [address] | + + + | Home Phone | | + + + | Preferred Language | Unknown | + + + | Marital Status | | + + + | Buddhist Affiliation | Unknown | + + + | Race | Unknown | + + + | Ethnic Group | Unknown | + + + Author + + + | Author | [facility] | | | and [place] | + + + | Organization | [facility] | | | and [place] [...] Team Providers + +------+ + | Care Dietary Tech Name | Role | Phone | + +------+ + | Kenyatta Cardenas MD | PCP | | + +------+ + Encounter Details +--------+ + + + + | Date | Type | Department | Care Team | Description | +--------+ + + + + | 02/22/ | Orders Only | [facility] | Sulema Altamirano | | | 2019 | | CONVERSION [address] | | | | | [address] | [address] | | | | | [place], [place] | [place] [address] | | | | | [address] | [phone] | | | | | [phone] | | | +--------+ + + + [...] | | + + +---------+ + | Not [...] + | ECHO INTERPRETATION | Routin | 02/22/2019 | | Results for this | | OF OUTSIDE FILMS | e | 15:17 PDT | | procedure are in the | | | | | | results section. | + +--------+ + + + documented in this encounter Results ECHO Interpretation of Outside Films (02/22/2019 15:17 PDT) + + | Specimen | + + | | + + + + + | Impressions | Performed At | + + + | 1. Overall left ventricular systolic function is normal with, an EF | | | between 65 - 70 %. 2. The right ventricle is normal in size and | | | function. 3. Pulmonary artery systolic pressure could not be assessed | | | due to the absence of adequate TR jet. 4. There is no pericardial | | | effusion. | | + + + + + + | Narrative | Performed At | + + + | Patient Name: Elzbieta Cristina Date of : 1975 | | | Performing Physician: Darryl Merrill | | | | | | INDICATIONS Sinus [...] flow Doppler was perfomed. Study: This was | | | a technically adequate study. Left Ventricle: Overall left | | | ventricular systolic function is normal with, an EF between 65 - 70 %. | | | Left Ventricle: The left ventricle cavity size is normal. Left | | | Ventricle: Left ventricular wall thickness is normal. Left Ventricle: | | | No regional wall motion abnormalities. Left Ventricle: The diastolic | | | filling pattern is normal for the age of the patient. Right | | | Ventricle: The right ventricle is normal in size and function. Left | | | Atrium: The left atrium is normal in size. Right Atrium: The right | | | atrium is normal in size. Aortic Valve: The aortic valve appears to | | | be trileaflet. Aortic Valve: The aortic valve is mildly calcified. | | | Aortic Valve: There is no evidence of aortic regurgitation. Aortic | | | Valve: There is no evidence of aortic stenosis. Mitral Valve: Normal | | | appearing mitral valve. Tricuspid Valve: The tricuspid valve appears | | | structurally normal. Tricuspid Valve: Pulmonary artery systolic | | | pressure could not be assessed due to the absence of adequate TR jet. | | | Pulmonic Valve: The pulmonic valve was not well visualized. | | | Pericardium: There is no pericardial effusion. Pericardium: No | | | pleural effusion seen. IVC/Hepatic Veins: The IVC is normal size | | | (1.5-2.5cm) and collapses >50% with sniff, consistent with central | | | venous pressures of 5-10mmHg. Aorta: Ascending aorta not well seen. | | | MEASUREMENTS Ao Diam: 3.21 cm Ao sinus: | | | 3.[address] junct: 3.05 cm IVC: 1.54 cm LA Major: | | | 3.90 cm EDV(Teich): 102.71 ml IVSd: 0.92 cm LVIDd: 4.70 | | | cm LVPWd: 0.79 cm LVOT Area: 3.58 cm2 LVOT Diam: 2.13 | | | cm %FS: 39.25 % EF(Teich): 69.70 % ESV(Teich): 31.11 ml | | | LVIDs: 2.85 cm SV(Teich): 71.60 ml RA Major: 4.15 cm | | | RV Major: 6.85 cm RV Minor: 2.73 cm RVIDd: 2.75 cm LVEF | | | MOD A2C: 64.28 % SV MOD A2C: 67.83 ml LVEF MOD A4C: | | | 64.07 % SV MOD A4C: 70.91 ml EF Biplane: 65.73 % LVEDV MOD | | | BP: 116.32 ml LVESV MOD BP: 39.85 ml LVEDV MOD A2C: | | | 105.51 ml LVLd A2C: 9.58 cm LVEDV MOD A4C: 110.66 ml LVLd | | | A4C: 8.22 cm LVESV MOD A2C: 37.68 ml LVLs A2C: 7.26 cm | | | LVESV MOD A4C: 39.75 ml LVLs A4C: 6.79 cm LAESV(A-L): | | | 30.33 ml LAESV Index (A-L): 14.72 ml/m2 LAAs A2C: 10.03 cm2 | | | LAESV A-L A2C: 22.69 ml LALs A2C: 3.76 cm LAAs A4C: | | | 13.41 cm2 LAESV A-L A4C: 36.80 ml LALs A4C: 4.14 cm | | | RAAs: 11.18 cm2 RAESV A-L: 22.84 ml RAESV MOD: 22.10 ml | | | RALs: 4.64 cm TAPSE: 2.04 cm AV maxP.55 mmHg AV | | | meanP.52 mmHg AV Vmax: 1.27 m/s AV Vmean: 0.88 m/s | | | AV VTI: 26.50 cm ADALID Vmax: 2.49 cm2 ADALID (VTI): 2.39 cm2 | | | AVAI Vmax: 0.00 cm2/m2 AVAI (VTI): 0.00 cm2/m2 LVOT | | | maxP.17 mmHg LVOT meanP.82 mmHg LVSI Dopp: 30.83 | | | ml/m2 LVSV Dopp: 63.52 ml LVOT Vmax: 0.89 m/s LVOT | | | Vmean: 0.65 m/s LVOT VTI: 17.71 cm MV A Jeffrey: 0.61 m/s | | | MV Dec Upshur: 2.43 m/s2 MV DecT: 247.51 ms MV E Jeffrey: | | | 0.60 m/s MV E/A Ratio: 0.98 MV PHT: 71.78 ms MVA By | | | PHT: 3.06 cm2 Septal e': 0.06 m/s Septal E/e': 9.54 | | | Lateral e': 0.10 m/s Lateral E/e': 5.84 RAP: 5 mmHg RV | | | s': 0.11 m/s [employer] Helicopter Pilot: JESSICA Authenticated by: Darryl | | | [facility] Report Date/Time: 02-22-2019 20:8:36 | | + + + + --------+ | Procedure Note | + --------+ | David Burgess Conversion - 03/17/2019 1308 PDT Patient Name: Tiny Cristina of : | | 1975 Performing Physician: Darryl | | Desirae INDICATIONS------ | | -----Sinus Tachycardia CONCLUSIONS 1. Overall left ventricular systolic | | function is normal with, an EF between 65 - 70 %.2. The right ventricle is normal in | | size and function.3. Pulmonary artery systolic pressure could not be assessed due to the | | absence of adequate TR jet.4. There is no pericardial effusion. FINDINGS--------ECG | | rhythm: Sinus rhythm.Study: A 2-dimensional transthoracic echocardiogram with m-mode, | | spectral and color flow Doppler was perfomed.Study: This was a technically adequate | | study.Left Ventricle: Overall left ventricular systolic function is normal with, an EF | | between 65 - 70 %.Left Ventricle: The left ventricle cavity size is normal.Left | | Ventricle: Left ventricular wall thickness is normal.Left Ventricle: No regional wall | | motion abnormalities.Left Ventricle: The diastolic filling pattern is normal for the age | | of the patient.Right Ventricle: The right ventricle is normal in size and function.Left | | Atrium: The left atrium is normal in size.Right Atrium: The right atrium is normal in | | size.Aortic Valve: The aortic valve appears to be trileaflet.Aortic Valve: The aortic | | valve is mildly calcified.Aortic Valve: There is no evidence of aortic | | regurgitation.Aortic Valve: There is no evidence of aortic stenosis.Mitral Valve: Normal | | appearing mitral valve.Tricuspid Valve: The tricuspid valve appears structurally | | normal.Tricuspid Valve: Pulmonary artery systolic pressure could not be assessed due to | | the absence of adequate TR jet.Pulmonic Valve: The pulmonic valve was not well | | visualized.Pericardium: There is no pericardial effusion.Pericardium: No pleural | | effusion seen.IVC/Hepatic Veins: The IVC is normal size (1.5-2.5cm) and collapses >50% | | with sniff, consistent with central venous pressures of 5-10mmHg.Aorta: Ascending aorta | | not well seen. MEASUREMENTS Ao Diam: 3.21 cmAo sinus: 3.[address] | | junct: 3.05 cmIVC: 1.54 cmLA Major: 3.90 cmEDV(Teich): 102.71 mlIVSd: 0.92 | | cmLVIDd: 4.70 cmLVPWd: 0.79 cmLVOT Area: 3.58 [id number] Diam: 2.13 cm%FS: 39.25 | | %EF(Teich): 69.70 %ESV(Teich): 31.11 mlLVIDs: 2.85 cmSV(Teich): 71.60 mlRA | | Major: 4.15 cmRV Major: 6.85 cmRV Minor: 2.73 cmRVIDd: 2.75 cmLVEF MOD A2C: | | 64.28 %SV MOD A2C: 67.83 mlLVEF MOD A4C: 64.07 %SV MOD A4C: 70.91 mlEF Biplane: | | 65.73 %LVEDV MOD BP: 116.32 mlLVESV MOD BP: 39.85 mlLVEDV MOD A2C: 105.51 mlLVLd | | A2C: 9.58 cmLVEDV MOD A4C: 110.66 mlLVLd A4C: 8.22 cmLVESV MOD A2C: 37.68 mlLVLs | | A2C: 7.26 cmLVESV MOD A4C: 39.75 mlLVLs A4C: 6.79 cmLAESV(A-L): 30.33 mlLAESV | | Index (A-L): 14.72 ml/m2LAAs A2C: 10.03 [id number] A-L A2C: 22.69 mlLALs A2C: 3.76 | | cmLAAs A4C: 13.41 [id number] A-L A4C: 36.80 mlLALs A4C: 4.14 cmRAAs: 11.18 | | [id number] A-L: 22.84 mlRAESV MOD: 22.10 mlRALs: 4.64 cmTAPSE: 2.04 cmAV maxPG: | | 6.55 mmHgAV meanP.52 mmHgAV Vmax: 1.27 m/Genesis Vmean: 0.88 m/Genesis VTI: 26.50 | | cmAVA Vmax: 2.49 cm2AVA (VTI): 2.39 [id number] Vmax: 0.00 cm2/m2AVAI (VTI): 0.00 | | cm2/m2LVOT maxP.17 mmHgLVOT meanP.82 mmHgLVSI Dopp: 30.83 ml/m2LVSV Dopp: | | 63.52 mlLVOT Vmax: 0.89 m/sLVOT Vmean: 0.65 m/sLVOT VTI: 17.71 cmMV A Jeffrey: | | 0.61 m/sMV Dec Upshur: 2.43 m/s2MV DecT: 247.51 msMV E Jeffrey: 0.60 m/sMV E/A Ratio: | | 0.98MV PHT: 71.78 msMVA By PHT: 3.06 [id number] e': 0.06 m/sSeptal E/e': | | 9.54Lateral e': 0.10 m/sLateral E/e': 5.84RAP: 5 mmHgRV s': 0.11 m/s | | [employer] Helicopter Pilot: DHAuthenticated by: Darryl Hess Date/Time: 02-22-2019 20:8:36 | | IMPRESSION: 1. Overall left ventricular systolic function is normal with, an EF between | | 65 - 70 %.2. The right ventricle is normal in size and function.3. Pulmonary artery | | systolic pressure could not be assessed due to the absence of adequate TR jet.4. There | | is no pericardial effusion. | |Ao sinus: [...] A Jeffrey: 0.61 m/s | |MV Dec Upshur: 2.43 m/s2 | |MV DecT: 247.51 ms | |MV E Jeffrey: 0.60 m/s | |MV E/A Ratio: 0.98 | |MV PHT: 71.78 ms | |MVA By PHT: 3.06 cm2 | |Septal e': 0.06 m/s | |Septal E/e': 9.54 | |Lateral e': 0.10 m/s | |Lateral E/e': 5.84 | |RAP: 5 mmHg | |RV s': 0.11 m/s | | | |[employer] Helicopter Pilot: JESSICA | |Authenticated by: Darryl Merrill | |Report Date/Time: 02-22-2019 20:8:36 | | [...] is no pericardial effusion. | + --------+ documented in this encounter Visit Diagnoses Not on filedocumented in this encounter"
--- OUTSIDE RECORDS SUMMARY | ~2019-05-10 | XMS | Encounter Summary ---
Demographics + + + | Address | [address] | | | [place] [address] | + + + | Home Phone [...] + | Katalina Padilla | ECON | [address] | | | | | [place], [place] | | | | | [address] | | + + + + + | Ellie Vang | ECON | Unknown | | + + + + + Care Team Providers + +------+ + | Care Sugar Chipper Machine Operator Name | Role | Phone [...] | Pain | Diagnoses | Analisa Georges Mixer Crane Operator Psych | | | | Management | Morbid | DANIELLE BrunerP | [address] | | | | | obesity with | [address] | | | | | BMI of [address] | [address] | Mailcode: | | | | | and over, | [place], [place] | [facility] | | | | | adult (HCC) | [address] | for Health | | | | | Procedures | Phone: | and Healing, | | | | | CONSULT TO | [phone] | Building 1, | | | | | PAIN | Fax: | 15th Floor | | | | | MANAGEMENT | [phone] | [place], [place] | | | | | [place] | | [address] | | | | | PSYCHIATRIC | | Phone: | | | | | DIAGNOSTIC | | [phone] | | | | | EVAL, NO MED | | Fax: | | | | | [facility] [place] | | [phone] | | | | | PSYCH TSTNG [...] | [facility] | | | with PROCEDURE ANALYST | | hypertension | [address] | [address] | | | | | Right | [address] | [address] | | | | | heart | [place], [place] | Mailcode: | | | | | failure | [address] | Center for | | | | | ([facility]) Type | Phone: | Health and | | | | | 2 diabetes | [phone] | Healing, | | | | | mellitus | Fax: | Building 2 | | | | | without | [phone] | [place], [place] | | | | | complication | | [address] | | | | | , with | | Phone: | | | | | long-term | | [phone] | | | | | current use | | Fax: | | | | | of insulin | | [phone] | | | | | ([facility]) | | | | | | [...] | | [address] | Ave [place], [place] | adult ([facility]) (Primary | | | | Mailcode: Center | [address] | Dx); Chronic | | | | for Health and | | 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 These classes will be scheduled apporoximately 1 month apart to allow time for you to put the teaching into action. Please call [phone] + Labs needed: Pre op: drug screen [...] are done + EKG: Please Have your phlebotomy instructor do the eval and send it to us + Pre-op Psychological Evaluation: Your referral is at [facility], The Pain Management Office will call you [...] be safely completed. + Sign up for [employer] so that we can communicate easily back and forth Once the above list is completed and copies have been received by our office, we will submi t for insurance authorization then schedule with the surgeon. KAIN De Dios DNP, RETAIL CLIENT MANAGER Nurse Practitioner for Bariatric Surgery [facility] | [address] | [place], [place] | [address] | documented in this encounter Progress Notes Shereen Georges ACNP - 02/02/2017 9:00 AM PDTFormatting of this note might be different f rom the original. BARIATRIC INITIAL VISIT Provider: Shereen Pinto DNP, KAIN, RETAIL CLIENT MANAGER Referring Provider: Fadi Goodrich DO Reason for [...] t loss. Consults: Cardiology: Dr. Edson Livingston [facility] Chemical Sprayer: Nickie : [facility] Paula But comes to magen Hr Operations Advisor at [facility]: Dr. Zhong for weight loss medication Holiness or cultural reason you would refuse blood [...] once daily., Disp : , Rfl: CALCIUM CRB&[id number]-[id number]-BEC19-GENIS ORAL, Take 2 tablets by mouth two [...] vagina Allergic rhinitis Anemia Anxiety Bipolar disorder ([facility]) Chronic wound infection of abdomen from 2010 Cough Depression Diverticulitis of colon Dizziness Glaucoma Heart burn Hemorrhoids Hernia of abdominal wall Incisional hernia, incarcerated 2012 Insomnia Irregular periods Kidney stone Leaking of urine Leg sore Lymphedema Morbid obesity with body mass index of 70 and over in adult ([facility]) Myalgia and myositis Nausea Neck pain Numbness Osteoarthritis of knee Palpitations Pneumonia Shortness of breath Staphylococcal infection Stroke ([facility]) TIA (transient ischemic attack) due to Bromocriptine Tinea corporis UTI (urinary tract infection) Past Surgical History Procedure Laterality Date Tonsillectomy and adenoidectomy Appendectomy, open 2010 Umbilical hernia repair 2010 Treatment of ankle fracture with screws remaining Incision and drainage of wound abscess x2 midline transverse wound s/p open appendectomy 2010 Ventral hernia repair 10/2012 Dr. Andie Brian Incisional hernia repair 03/01/2015 [facility]/ Dr. Cantu. Primary fascial closure and scar [...] History Narrative Updated 11/09/15 She lives in [place] with her mother and her sister (also her caregiver) lives in an [facility]. She has 2 grandchildren (age 4 and 7) who live with her daughter and son-in-law Her boyfriend lives in [place] Family History Problem Relation Heart Attack Father [...] extre mity edema, hypertension, hyperlipidemia. Denies CHF, [place], ischemic heart disease, or pulmon nikki hypertension. [...] years without success. [facility] to control co-morbidities. [...] management, and was referred as well to marketing development representative. Plan: Request that her phlebotomy instructor clear her, and make recommendations 3. Mammogram: [...] to your private appointme nt with the fire alarm mechanic. These classes will be scheduled apporoximately 1 month apart to allow time for you to put the teaching into action. Please call [phone] + Labs needed: lipids, CBC, CMP, TSH, [...] are done + EKG: Please Have your phlebotomy instructor do the eval and send it to us + Pre-op Psychological Evaluation: Your referral is at [facility], The Pain Management Office will call you [...] be safely completed. + Sign up for [employer] so that we can communicate easily back and forth Once the above list is completed and copies have been received by our office, we will submi t for insurance authorization then schedule with the surgeon. KAIN De Dios DNP, RETAIL CLIENT MANAGER Nurse Practitioner for Bariatric Surgery [facility] | [address] | [place], [place] | [address] | documented in this encounter Plan of [...] [place] | | | | | | [address] | | | | | | [phone] | | | | | | | | +--------+ + + + + | 06/27/ | Telephone-S | Pre-operative | | | | 2018 | cheduled | Medicine | | | +--------+ + + + + | 06/30/ | Office | Cardiology | Randell Zhong, | | | 2018 | Visit | | MD [address] | | | | | | [place], [place] | | | | | | [address] | | | | | | [phone] | | | | | | | [...]
--- OUTSIDE RECORDS SUMMARY | ~2019-05-10 | XMS | Encounter Summary ---
Demographics + + + | Address | [address] | | | [place] [address] | + + + | Home Phone [...] + | Katalina Padilla | ECON | [address] | | | | | [place], [place] | | | | | [address] | | + + + + + | Ellie Vang | ECON | Unknown | | + + + + + Care Team Providers + +------+ + | Care Handicrafts Teacher Name | Role | Phone | + +------+ + | Fadi Goodrich DO | PCP | | + +------+ + Encounter Details +--------+------+ + + + | Date | Type | Department | Care Team | Description | +--------+------+ + + + | 06/16/ | Lab | Laboratory at [facility] | | Morbid obesity with | | 2012 | | [address] | | BMI of 70 and over, | | | | [place], [place] | | adult (HCC); Vitamin | | | | [address] | | D deficiency | | | | [phone] | | disease; | | | | | | Intertriginous | | | | | | candidiasis; | | | | | | 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| | (HCC); HTN | | | | | | (hypertension); | | | | | | Edema; Skin | | | | | | breakdown; Anemia; | | | | | | Decreased mobility; | | | | | | GERD | | | | | | (gastroesophageal | | | | | | reflux disease); | | | | | | Sleep apnea; | | | | | | Hypoventilation | | | | | | associated with | | | | | | obesity (HCC); PCOS | | | | | | (polycystic ovarian | | | | | | syndrome); Ventral | | | | | | hernia | +--------+------+ + + + Social History [...] [address] | | | | | | [place], [place] | | | | | | [address] | | | | | | [phone] | | | | | | | [...] | | | | | [place], [place] | | | | | | [address] | | | | | | [phone] | | | | | | | [...] | + +--------+ + + + | H. PYLORI IGG, IGA | Routin | 06/16/2013 | Morbid obesity | Results for this | | | e | 2:27 PM | with BMI of 70 and | procedure are in the | | | | PST | over, adult (HCC) | results section. | | | | | Vitamin D deficiency | | | | | | disease | | | | | | Intertriginous | | | | | | candidiasis | | | | | | 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| | (HCC) HTN | | | | | | (hypertension) | | | | | | Edema Skin | | | | | | breakdown Anemia | | | | | | Decreased mobility | | | | | | GERD | | | | | | (gastroesophageal | | | | | | reflux disease) | | | | | | Sleep apnea | | | | | | Hypoventilation | | | | | | associated with | | | | | | obesity (HCC) PCOS | | | | | | (polycystic ovarian | | | | | | syndrome) Ventral | | | | | | hernia | | + +--------+ + + + documented in this encounter Results H. PYLORI IGG, IGA (06/16/2013 2:27 PM PST) + + + + + + | Component | Value | Ref Range | Performed | Pathologist | | | | | At | Signature | + + + + + + | H.PYLORI | 1.2Comment: INTERPRETIVE | <=1.7 EV | [facility] | | | IGG | INFORMATION: | | REG UNIV | | | AB,SERUM | Helicobacter Pylori | | PTH - [facility]FC | | | | Ab, IgG 1.7 EV or | | | | | | Less .......... | | | | | | Negative: No significant | | | | | | level | | | | | | | | | | | | of IgG antibody to H. | | | | | | pylori | | | | | | | | | | | | detected. 1.8 - 2.2 | | | | | | EV ............ | | | | | | Equivocal: Repeat | | | | | | testing in | | | | | | | | | | | | 10-14 days may be | | | | | | helpful. 2.3 EV or | | | | | | Greater ....... | | | | | | Positive: IgG antibody | | | | | | to | | | | | | H. | | | | | | pylori detected, | | | | | | suggestive | | | | | | | | | | | | of previous | | | | | | exposure or active | | | | | | | | | | | | infection. | | | | | | Previously known as | | | | | | Campylobacter pylori, | | | | | | Helicobacterpylori-speci | | | | | | fic antibodies are | | | | | | detectable in almost | | | | | | alladult patients with | | | | | | duodenal ulcer and about | | | | | | 80% ofpatients with | | | | | | gastric ulcer. The | | | | | | prevalence of H. | | | | | | pyloriantibodies | | | | | | increases with age and | | | | | | can be found in | | | | | | asignificant percentage | | | | | | of healthy individuals | | | | | | over the ageof 50. | | | | | | Positive results do not | | | | | | confirm the diagnosis of | | | | | | H.pylori-associated | | | | | | gastritis or duodenal | | | | | | ulcer, but | | | | | | negativeresults are | | | | | | strong evidence against | | | | | | these diagnoses. For | | | | | | additional information, | | | | | | refer to Helicobacter | | | | | | pyloritopic at | | | | | | [email or web address] Test | | | | | | developed and | | | | | | characteristics | | | | | | determined by | | | | | | [facility]. See | | | | | | Compliance Statement B: | | | | | | [email or web address] | | | | | | by [facility],[address] | | | | | | [address], [facility] | | | | | | [address] | | | | | | [phone]. | | | | | | com, [place], | | | | | | , Lab. Director | | | | + + + + + + | H.PYLORI | 1.0Comment: INTERPRETIVE | <=1.7 EV | [facility] | | | IGA AB | INFORMATION: | | REG UNIV | | | SERUM | Helicobacter pylori Ab, | | PTH - INTFC | | | | IgA 1.7 EV or Less | | | | | | .......... Negative: No | | | | | | significant level | | | | | | | | | | | | of IgA | | | | | | antibody to H. pylori | | | | | | | | | | | | detected | | | | | | 1.8 - 2.2 EV | | | | | | ............ Equivocal: | | | | | | Repeat testing in | | | | | | | | | | | | 10-14 days | | | | | | may be helpful. 2.3 EV | | | | | | or Greater ....... | | | | | | Positive: IgA antibody | | | | | | to | | | | | | H. | | | | | | pylori detected, | | | | | | suggestive | | | | | | | | | | | | of active | | | | | | infection. Helicobacter | | | | | | pylori IgG and IgA | | | | | | antibody | | | | | | seroconversionoccur | | | | | | together after 60 days. | | | | | | Samples which have a | | | | | | hightiter of both IgG | | | | | | and IgA antibodies to H. | | | | | | pylori insymptomatic | | | | | | individuals may be | | | | | | considered to represent | | | | | | anactive infection. | | | | | | However, a positive H. | | | | | | pylori IgA resultcan | | | | | | only infer active | | | | | | infection and should be | | | | | | confirmed bybacterial | | | | | | isolation or other | | | | | | diagnostic testing. For | | | | | | additional information, | | | | | | refer to Helicobacter | | | | | | pyloritopic at | | | | | | [employer] [facility] | | | | | | developed and | | | | | | characteristics | | | | | | determined by | | | | | | [facility]. See | | | | | | Compliance Statement B: | | | | | | [employer]/CS | | | | + + + + + + + + | Specimen | + + | Blood - Blood | + + + + + + + | Performing | Address | City/State/Zipcode | Phone Number | | Organization | | | | + + + + + | [facility] | [address] | [place], [place] | | | UNIV PTH - INT[facility] | | [address] | | + + + + + documented in this encounter Visit Diagnoses + + | Diagnosis | + + | Morbid obesity with BMI of 70 and over, adult (HCC) | + + | Vitamin D deficiency disease Unspecified vitamin D deficiency | + + | Intertriginous candidiasis Candidiasis of skin and nails | + + | Diabetes mellitus (HCC) Type II or unspecified type diabetes mellitus without mention | | of complication, not stated as uncontrolled | + + | HTN (hypertension) Unspecified essential hypertension | + + | Edema | + + | Skin breakdown Other specified hypertrophic and atrophic condition of skin | + + | Anemia Anemia, unspecified | + + | Decreased mobility Abnormality of gait | + + | GERD (gastroesophageal reflux disease) Esophageal reflux | + + | Sleep apnea Unspecified sleep apnea | + + | Hypoventilation associated with obesity (HCC) Obesity hypoventilation syndrome | + + | PCOS (polycystic ovarian syndrome) Polycystic ovaries | + + | Ventral hernia Ventral hernia, unspecified, without mention of obstruction or | | gangrene | + + documented in this encounter"
--- OUTSIDE RECORDS SUMMARY | ~2019-05-10 | XMS | Encounter Summary ---
Demographics + + + | Address | [address] | | | [place] [address] | + + + | Home Phone | | + + + | Preferred Language | Unknown | + + + | Marital Status | Single | + + + | Jain Affiliation | NON | + + + [...] + | Katalina Padilla | ECON | [address] | | | | | [place], [place] | | | | | [address] | | + + + + + | Ellie Vang | ECON | Unknown | | + + + + + Care Team Providers + +------+ + | Care Hearing Therapist Name | Role | Phone | + +------+ + | Fadi Goodrich DO | PCP | | + +------+ + Reason for Visit + + + | Reason | Comments | + + + | Update On Condition | | + + + Encounter Details +--------+ + + + + | Date | Type | Department | Care Team | Description | +--------+ + + + + | 03/11/ | Telephone | Digestive Health | Ronna Clarke, | Update On Condition | | 2018 | | Center at [facility] [address] | ACNP [address] | | | | | [address] | [place], [place] | | | | | Mailcode: [place] | [address] | | | | | for Health and | [phone] | | | | | [place] [address] | | | | | | [place], [place] | | | | | | [address] | | | | | | [phone] | | | +--------+ + + + [...] [address] | | | | | | [facility] [place] | | | | | | [address] | | | | | | [phone] | | | | | | | | +--------+ + + + + | 06/27/ | Telephone-S | Pre-operative | | | | 2018 | cheduled | Medicine | | | +--------+ + + + + | 06/30/ | Office | Cardiology | Randell Franks, | | | 2018 | Visit | | [address] | | | | | | Ave [place], [place] | | | | | | [address] | | | | | | [phone] | | | | | | | | +--------+ + + + + | 07/08/ | Procedure | Surgery | | | | 2018 | Pass | | | | +--------+ + + + + documented as of this encounter Visit Diagnoses Not on filedocumented in this encounter"
--- OUTSIDE RECORDS SUMMARY | ~2019-05-10 | XMS | Encounter Summary ---
Demographics + + + | Address | [address] | | | [place] [address] | + + + | Home Phone [...] + | Katalina Padilla | ECON | [address] | | | | | [place], [place] | | | | | [address] | | + + + + + | Ellie Vang | ECON | Unknown | | + + + + + Care Team Providers + +------+ + | Care Operations Leader Name | Role | Phone | [...] Visit | Medicine Clinic at | J, CINDER WORKER | (Primary Dx); | | | | [facility] | | Dysphagia, | | | | [address] | | unspecified type; | | | | Mail Code: OC8PM | | Hypertension, | | | | Center for [facility] | | unspecified type; | | | | and Healing, | | Hyperlipidemia, | | | | [address] | | unspecified | | | | [place], [place] | | hyperlipidemia type; | | | | [address] | | Diastolic | | | | [phone] | | congestive heart | | | [...] insulin | | | | | | (HCC) | +--------+---------+ + + + Anesthesia Record [...] 928; Yes; Right; | 01/01/17928 by | | | | panus; Other (Comment) (open | Ashley Herndon RN | | | | keila. area reddened. Pt [...] +--------+ + + + | Incisi | 03/01/18924; Dannie; Left; | 03/01/18924 by | | | on | adb- upper quadrant | Ethel Brito RN | | +--------+ + + + | Incisi | 03/01/18924; Dannie; Left; | 03/01/18924 by | | | on | Lateral; adb- upper quadrant | Ethel Brito RN | | +--------+ + + + | Incisi | 03/01/18; 1051; Dannie CARVAJAL ; | 03/01/18 1051 by | | | on | Anterior, [...] | | Endotracheal Tube; 7; Oral; | REGISTERED NURSE POST PARTUM | REGISTERED NURSE POST PARTUM | | | Cuffed; 06/23/18; 1542 | [...] encounter Patient Instructions Patient Instructions Tiara Mckeon, CINDER WORKER - 06/16/2018 3:15 PM [facility] PREOPERATIVE INSTRUCTIONS Please consider having an influenza [...] [facility] Surgery Check in Time: The Preoperative Medicine [...] it is after office hours, call the [facility] telegraph operator at [phone] and ask them to page him or h er. documented in this encounter Progress Notes Tiara Mckeon FNP - 06/16/2018 3:15 PM PSTFormatting of this note might be differen t from the original. PREOPERATIVE CONSULT NOTE Author: HILDA Lagos Referring Physician: Dr Wilcox Primary Care Provider: aFdi Goodrich DO Reason for Consult: Preoperative evaluation [...] weight loss and diuretic tx, follows with perianesthesia manager Hypothyroidism stabilized on hormone replacement Type 2 [...] renal failure no electrolyte abnormalities no dialysis Urology/Wildland Fire Fighter Specialist: Urologic Conditions: nephrolithiasis Endo: Diabetes: type 2 [...] sublingual Place under tongue once daily. CALCIUM CRB&BVU-Z5-OYV25-GENIS ORAL Take 2 tablets by mouth two [...] vagina Allergic rhinitis Anemia Anxiety Bipolar disorder ([facility]) Chronic wound infection of abdomen [...] Dr. Andie Brian Incisional hernia repair 03/01/2015 [facility]/ Dr. Cantu. Primary fascial closure and scar excision Lap gastric byp, and nilesh-en-y gastroenterostomy w/ nilesh limb 150 cm or less 8 [facility] Family history reviewed / updated Family [...] weight loss and diuretic tx, follows with perianesthesia manager. Appears comp ensated today. Hypothyroidism stabilized on hormone replacement. Take on DOS as usual Type 2 diabetes, well controlled with A1c 6.1 Thank you for the opportunity to contribute to this patient's care. HILDA Lagos [facility] P[facility] PREOPERATIVE MEDICINE CLINIC AT [facility] 4TH FLOOR [address] [facility] [address] I advised the patient regarding NPO requirements, hydration before surgery, showering, ge neral body hygiene. All pre-procedure instructions given to the patient (after-visit summar y). All of patient's questions were addressed. The patient verbalized understanding of the instructions given. P M PSTdocumented in this encounter Plan of Treatment +--------+ + + + + | Date | Type | Specialty | Care Team | Description | +--------+ + + + + | 05/13/ | Office | Plastic Surgery | Archie Ybarra MD | | | 2018 | Visit | | [address] | | | | | | [place], [place] | | | | | | [address] | | | | | | [phone] | | | | | | | [...] | | | | [place] [facility] [place] | | | | | | [address] | | | | | | [phone] | | | | | | | [...]
--- OUTSIDE RECORDS SUMMARY | ~2019-05-10 | XMS | Encounter Summary ---
Demographics + + + | Address | [address] | | | [place] [address] | + + + | Home Phone [...] + | Katalina Padilla | ECON | [address] | | | | | [place], [place] | | | | | [address] | | + + + + + | Ellie Vang | ECON | Unknown | | + + + + + Care Team Providers + +------+ + | Care Ui Architect Name | Role | Phone | [...] + + + + | 03/01/ | Hospital | [facility] [address] | Ion Castanon, | | | 2018 - | Encounter | [address] | [address] | | | | | [place], [place] | [place], [place] | | | 03/03/ | | [address] | [address] | | | 2017 | | [phone] | [phone] | | | | | | | [...] Gavin ACNP - 03/03/2018 9:49 AM PDT [facility] RED SURGERY INPATIENT DISCHARGE SUMMARY Author: KAIN [...] to a bariatric full liquid diets. Our [facility] dietitian was consulted and they [...] at minimum. 5. Follow with PCP for Net Making Supervisor within 1 - 2 weeks of discharge [...] mg by mouth two times daily. CALCIUM [id number] ORAL Take 2 tablets by mouth two [...] yogurt or kefir. Zaria's Yogurt or Kefir, [place] Yogurt, and Chioban i Ecuadorean Yogurt are common brands with beneficial probiotics. [...] are available over the counter at most [facility] [employer] stores. Nausea/Vomiting/Difficulty Swallowing Nausea/Vomiting/Difficulty swallowing: Could be [...] hours per your instructions. Some medications, like [place], have Tylenol in it. Make sure you [...] (PCP) as this clinic does not provide ongoi chronic pain management services. When to Call [...] hours by calling the surgery office at [phone]. - After hours, weekends and holidays, you may call the hospital swinging cut off saw operator at [phone] an d have the reservoir engineering consultant Red Surgery Team paged. OTHER DISCHARGE ORDERS [...] at minimum. 5. Follow with PCP for Net Making Supervisor within 1 - 2 weeks of discharge [...] Department Dept Phone Center 03/10/2018 1:30 PM [facility] at [facility] 6th Floor [phone] FO OD AND NUT 03/10/2018 3:05 PM [facility] Center at [facility] 6th Floor [phone] [facility] 04/01/2018 10:30 AM [facility] at [facility] 6th Floor [phone] FO OD AND NUT 04/01/2018 11:00 AM [facility] 6th Floor [phone] [facility] 05/27/2018 2:30 PM [facility] at [facility] 6th Floor [phone] FO OD AND NUT 05/27/2018 3:05 PM [facility] Center at [facility] 6th Floor [phone] [facility] 05/27/2018 4:30 PM [facility] at [facility] 15th Floor [phone] Comprehensiv 06/04/2018 10:35 AM [facility]ive at [facility] [phone] Cardiology Discharging Physician: KAIN Agee Attending Physician: Ion Castanon MD [facility] Surgery Pager# [phone] 9:50 AM 03/03/2018 documented in this enco [...] | | 0 | | | | [id number] | mouth two times | | | [...] of this note might be different from th e original. RED Surgical Team: Foregut/Bariatrics Daily Progress [...] date of discharge 03/03/18 PARTHA Calixto MS3 [facility] Demarcus Menon MD - 03/02 [...] for care ride home (pt lives in [place]) Demarcus Alas M.D. General Surgery Resident PGY-1 Pager: [phone] Ion Ferrari MD - 10:00 AM PDTI [...] [address] | | | | | | [place], [place] | | | | | | [address] | | | | | | [phone] | | | | | | | [...] | | | | | [place], [place] | | | | | | [address] | | | | | | [phone] | | | | | | | [...] POC | | PDT | over, adult (HCC) | results section. | + +--------+ + + + | CAPILLARY BLOOD | Routin | 03/03/2018 | Morbid obesity | Results for this | | GLUCOSE (NO CHG), | e | 7:54 AM | with BMI of 70 and | procedure are in the | | POC | | PDT | over, adult ([facility]) | results section. | + +--------+ + + + | CAPILLARY BLOOD | Routin | 03/03/2018 | Morbid obesity | Results for this | | GLUCOSE (NO CHG), | e | 6:28 AM | with BMI of 70 and | procedure are in the | | POC | | PDT | over, adult ([facility]) | results section. | + +--------+ + + + | CAPILLARY BLOOD | Routin | 03/02/2018 | Morbid obesity | Results for this | | GLUCOSE (NO CHG), | e | 9:17 PM | with BMI of 70 and | procedure are in the | | POC | | PDT | over, adult ([facility]) | results section. | + +--------+ + + + | CAPILLARY BLOOD | Routin | 03/02/2018 | Morbid obesity | Results for this | | GLUCOSE (NO CHG), | e | 6:50 PM | with BMI of 70 and | procedure are in the | | POC | | PDT | over, adult ([facility]) | results section. | + +--------+ + + + | CAPILLARY BLOOD | Routin | 03/02/2018 | Morbid obesity | Results for this | | GLUCOSE (NO CHG), | e | 3:46 PM | with BMI of 70 and | procedure are in the | | POC | | PDT | over, adult ([facility]) | results section. | + +--------+ + + + | CAPILLARY BLOOD | Routin | 03/02/2018 | Morbid obesity | Results for this | | GLUCOSE (NO CHG), | e | 2:36 PM | with BMI of 70 and | procedure are in the | | POC | | PDT | over, adult ([facility]) | results section. | + +--------+ + + + | CAPILLARY BLOOD | Routin | 03/02/2018 | Morbid obesity | Results for this | | GLUCOSE (NO CHG), | e | 1:33 PM | with BMI of 70 and | procedure are in the | | POC | | PDT | over, adult ([facility]) | results section. | + +--------+ + + + | CAPILLARY BLOOD | Routin | 03/02/2018 | Morbid obesity | Results for this | | GLUCOSE (NO CHG), | e | 11:36 AM | with BMI of 70 and | procedure are in the | | POC | | PDT | over, adult ([facility]) | results section. | + +--------+ + + + | CAPILLARY BLOOD | Routin | 03/02/2018 | Morbid obesity | Results for this | | GLUCOSE (NO CHG), | e | 10:32 AM | with BMI of 70 and | procedure are in the | | POC | | PDT | over, adult ([facility]) | results section. | + +--------+ + + + | CAPILLARY BLOOD | Routin | 03/02/2018 | Morbid obesity | Results for this | | GLUCOSE (NO CHG), | e | 9:23 AM | with BMI of 70 and | procedure are in the | | POC | | PDT | over, adult ([facility]) | results section. | + +--------+ + + + | CAPILLARY BLOOD | Routin | 03/02/2018 | Morbid obesity | Results for this | | GLUCOSE (NO CHG), | e | 8:36 AM | with BMI of 70 and | procedure are in the | | POC | | PDT | over, adult ([facility]) | results section. | + +--------+ + + + | CAPILLARY BLOOD | Routin | 03/02/2018 | Morbid obesity | Results for this | | GLUCOSE (NO CHG), | e | 7:35 AM | with BMI of 70 and | procedure are in the | | POC | | PDT | over, adult ([facility]) | results section. | + +--------+ + + + | CAPILLARY BLOOD | Routin | 03/02/2018 | Morbid obesity | Results for this | | GLUCOSE (NO CHG), | e | 6:33 AM | with BMI of 70 and | procedure are in the | | POC | | PDT | over, adult ([facility]) | results section. | + +--------+ + + + | CAPILLARY BLOOD | Routin | 03/02/2018 | Morbid obesity | Results for this | | GLUCOSE (NO CHG), | e | 5:28 AM | with BMI of 70 and | procedure are in the | | POC | | PDT | over, adult ([facility]) | results section. | + +--------+ + + + | CAPILLARY BLOOD | Routin | 03/02/2018 | Morbid obesity | Results for this | | GLUCOSE (NO CHG), | e | 4:36 AM | with BMI of 70 and | procedure are in the | | POC | | PDT | over, adult ([facility]) | results section. | + +--------+ + + + | CAPILLARY BLOOD | Routin | 03/02/2018 | Morbid obesity | Results for this | | GLUCOSE (NO CHG), | e | 2:46 AM | with BMI of 70 and | procedure are in the | | POC | | PDT | over, adult ([facility]) | results section. | + +--------+ + + + | CAPILLARY BLOOD | Routin | 03/02/2018 | Morbid obesity | Results for this | | GLUCOSE (NO CHG), | e | 12:32 AM | with BMI of 70 and | procedure are in the | | POC | | PDT | over, adult ([facility]) | results section. | + +--------+ + + + | CAPILLARY BLOOD | Routin | 03/01/2018 | Morbid obesity | Results for this | | GLUCOSE (NO CHG), | e | 10:31 PM | with BMI of 70 and | procedure are in the | | POC | | PDT | over, adult ([facility]) | results section. | + +--------+ + + + | CAPILLARY BLOOD | Routin | 03/01/2018 | Morbid obesity | Results for this | | GLUCOSE (NO CHG), | e | 8:21 PM | with BMI of 70 and | procedure are in the | | POC | | PDT | over, adult ([facility]) | results section. | + +--------+ + [...] POC | | PDT | over, adult ([facility]) | results section. | + +--------+ + + + | CAPILLARY BLOOD | Routin | 03/01/2018 | Morbid obesity | Results for this | | GLUCOSE (NO CHG), | e | 3:31 PM | with BMI of 70 and | procedure are in the | | POC | | PDT | over, adult ([facility]) | results section. | + +--------+ + + + | CAPILLARY BLOOD | Routin | 03/01/2018 | Morbid obesity | Results for this | | GLUCOSE (NO CHG), | e | 3:29 PM | with BMI of 70 and | procedure are in the | | POC | | PDT | over, adult ([facility]) | results section. | + +--------+ + + + | CAPILLARY BLOOD | Routin | 03/01/2018 | Morbid obesity | Results for this | | GLUCOSE (NO CHG), | e | 2:30 PM | with BMI of 70 and | procedure are in the | | POC | | PDT | over, adult ([facility]) | results section. | + +--------+ + + + | CAPILLARY BLOOD | Routin | 03/01/2018 | Morbid obesity | Results for this | | GLUCOSE (NO CHG), | e | 1:35 PM | with BMI of 70 and | procedure are in the | | POC | | PDT | over, adult ([facility]) | results section. | + +--------+ + + + | CAPILLARY BLOOD | Routin | 03/01/2018 | Morbid obesity | Results for this | | GLUCOSE (NO CHG), | e | 12:16 PM | with BMI of 70 and | procedure are in the | | POC | | PDT | over, adult ([facility]) | results section. | + +--------+ + [...] POC | | PDT | over, adult (HCC) | results section. | + +--------+ + + + | LAPAROSCOPIC | Electi | 03/01/2018 | Morbid obesity | | | NISH-EN-Y GASTRIC | ve | 8:31 AM | (HCC) | | | BYPASS | Surgic | [...] | [facility] | [address] | [place], [place] | | | [facility] | [facility] | [phone] | | | TESTS | | | [...] (H) | 70 - 99 mg/dL | [facility] - | | | GLUCOSE, | | [...] [facility] | [address] | [place], [place] | | | [facility] | [address] | [address] | | | TESTS | | | [...] + + | Performing | Address | City[facility]State[facility] | Phone Number | | Organization | | | | + + + + + | [facility] | [address] | [place], [place] | | | [facility] | [facility] | [phone] | | | TESTS | | | [...] [facility] | [address] | [place], [place] | | | [facility] | [facility] | [phone] | | | TESTS | | | | + + + + + CAPILLARY BLOOD GLUCOSE (NO CHG), POC (03/02/2018 6:50 PM PDT) + +-------+ + + + | Component | Value | Ref Range | Performed | Pathologist | | | | | At | Signature | + +-------+ + + + | BLOOD | 87 | 70 - 99 mg/dL | [facility] - | | | GLUCOSE, | | [...] + + + + | [facility] | [address] | [place], [place] | | | [facility] | [address] | [address] | | | TESTS | | | [...] [facility] | [address] | [place], [place] | | | [facility] | [facility] | [phone] | | | TESTS | | | [...] | [facility] | [address] | [place], [place] | | | [facility] | [facility] | [address] | | | TESTS | | | [...] (H) | 70 - 99 mg/dL | [facility] - | | | GLUCOSE, | | [...] [facility] | [address] | [place], [place] | | | [facility] | [address] | [address] | | | TESTS | | | [...] [facility] | [address] | [place], [place] | | | [facility] | [facility] | [phone] | | | TESTS | | | [...] | [facility] | [address] | [place], [place] | | | [facility] | [facility] | [phone] | | | TESTS | | | [...] (H) | 70 - 99 mg/dL | [facility] - | | | GLUCOSE, | | [...] | [facility] | [address] | [place], [place] | | | [facility] | [address] | [address] | | | TESTS | | | [...] [facility] | [address] | [place], [place] | | | [facility] | [facility] | [phone] | | | TESTS | | | [...] - [facility] | [address] | [place], [place] | | | [facility] | [facility] | [address] | | | TESTS | | | | + + + + + CAPILLARY BLOOD GLUCOSE (NO CHG), POC (03/02/2018 6:33 AM PDT) + +-------+ + + + | Component | Value | Ref Range | Performed | Pathologist | | | | | At | Signature | + +-------+ + + + | BLOOD | 96 | 70 - 99 mg/dL | [facility] - | | | GLUCOSE, | | [...] [facility] | [address] | [place], [place] | | | [facility] | [address] | [phone] | | | TESTS | | | [...] [facility] | [address] | [place], [place] | | | [facility] | [facility] | [phone] | | | TESTS | | | [...] [facility] | [address] | [place], [place] | | | [facility] | [facility] | [phone] | | | TESTS | | | [...] [facility] | [address] | [place], [place] | | | [facility] | [facility] | [address] | | | TESTS | | | [...] [facility] | [address] | [place], [place] | | | [facility] | [address] | [phone] | | | TESTS | | | [...] [facility] | [address] | [place], [place] | | | [facility] | [facility] | [phone] | | | TESTS | | | [...] [facility] | [address] | [place], [place] | | | [facility] | [address] | [address] | | | TESTS | | | [...] | | POC | | | [facility] | | | | | | OF [...] [facility] | [address] | [place], [place] | | | [facility] | [facility] | [phone] | | | TESTS | | | | + + + + + CAPILLARY BLOOD GLUCOSE (NO CHG) POC (03/01/2018 3:31 PM PDT) + +---------+ [...] - [facility] | [address] | [place], [place] | | | [facility] | [facility] | [phone] | | | TESTS | | | | + + + + + CAPILLARY BLOOD GLUCOSE (NO CHG), POC (03/01/2018 3:29 PM PDT) + +-------+ + + + | Component | Value | Ref Range | Performed | Pathologist | | | | | At | Signature | + +-------+ + + + | BLOOD | 74 | 70 - 99 mg/dL | [facility] - | | | GLUCOSE, | | [...] [facility] | [address] | [place], [place] | | | [facility] | [address] | [address] | | | TESTS | | | [...] [facility] | [address] | [place], [place] | | | [facility] | [facility] | [phone] | | | TESTS | | | [...] | [facility] | [address] | [place], [place] | | | [facility] | [facility] | [phone] | | | TESTS | | | [...] (H) | 70 - 99 mg/dL | [facility] - | | | GLUCOSE, | | [...] [facility] | [address] | [place], [place] | | | [facility] | [address] | [phone] | | | TESTS | | | | + + + + + EGD (ESOPHAGOGASTRODUODENOSCOPY) (03/01/2018 11:21 AM PDT) + + + | Narrative | Performed At | + + + | Ion Castanon MD 03/01/2018 12:25 PM Date of Procedure: | | | 03/01/18 Primary Surgeon: Ion Castanon MD Co Surgeon or | | | medical claims assistant: Eldon Gonzalez MD, Chief Resident Alexx [...] The jejunum was divided with 60 mm Crisman stapler with white | | | load [...] created in each limb and a 60mm Crisman stapler | | | with white load was fired to create a vvwv-xv-ddly | | | jejunojejunostomy. The anastamosis was confirmed to be widely | | | patent and hemostatic. The common enterotomy was closed by placing | | | 2 stay sutures along the enterotomy for retraction and firing an | | | Crisman 60mm stapler with white load across the [...] | | | was entered. The 60mm Crisman stapler with blue load was placed | [...] blue load of the 60mm stapler. The Crisman was then fired | | | longitudinally towards the angle of His to create the gastric pouch, | | | leaving the gastrotomy from foreign body removal, on the pouch. | | | Dissection was performed retrogastric to connect posterior and | | | anterior dissection planes and ensure adequate fundus exclusion. | | | Additional fires of the Crisman stapler were performed with blue | | [...] with | | | 5 mm clip head sawyer. A 25mm Orvil was passed transorally by [...] was closed with 60mm | | | Crisman stapler with a white load. Medially and [...] irrigated and closed with 4[facility]. The patient | | | was extubated and transferred to the recovery room in stable | | | condition. I was present for the entirety of this procedure. | | | There was no qualified resident available and Dr. Wagner was present | | | as my medical claims assistant for the entire procedure, given the technically | | | challenging nature of this procedure. She assisted in all critical | | | steps of the procedure. Dr. Gonzalez was present for endoscopy at the | | | end of the procedure. Ion Castanon MD, FACS, [facility] | | | Bariatric Surgery | | [...] MD Co Surgeon or | | | medical claims assistant: Eldon Gonzalez MD, Chief Resident Alexx | | | [place] MS4 Preoperative Diagnosis: Morbid Obesity with BMI [...] The jejunum was divided with 60 mm Crisman stapler with white | | | load [...] created in each limb and a 60mm Crisman stapler | | | with white load was fired to create a elqj-zx-fdaa | | | jejunojejunostomy. The anastamosis was confirmed to be widely | | | patent and hemostatic. The common enterotomy was closed by placing | | | 2 stay sutures along the enterotomy for retraction and firing an | | | Crisman 60mm stapler with white load across the [...] | | | was entered. The 60mm Crisman stapler with blue load was placed | [...] blue load of the 60mm stapler. The Crisman was then fired | | | longitudinally towards the angle of His to create the gastric pouch, | | | leaving the gastrotomy from foreign body removal, on the pouch. | | | Dissection was performed retrogastric to connect posterior and | | | anterior dissection planes and ensure adequate fundus exclusion. | | | Additional fires of the Crisman stapler were performed with blue | | [...] with | | | 5 mm clip head sawyer. A 25mm Orvil was passed transorally by [...] was closed with 60mm | | | Crisman stapler with a white load. Medially and [...] was present | | | as my medical claims assistant for the entire procedure, given the technically | | | challenging nature of this procedure. She assisted in all critical | | | steps of the procedure. Dr. Gonzalez was present for endoscopy at the | | | end of the procedure. Ion Castanon MD, HANK, [facility] | | | Bariatric Surgery | | + + + CAPILLARY BLOOD GLUCOSE (NO CHG), POC (03/01/2018 10:11 AM PDT) + +---------+ + + + | Component | Value | Ref Range | Performed | Pathologist | | | | | At | Signature | + +---------+ + + + | BLOOD | 161 (H) | 70 - 99 mg/dL | [facility] - | | | GLUCOSE, | | [...] [facility] | [address] | [place], [place] | | | [facility] | [address] | [phone] | | | TESTS | | | [...] with BMI of 70 and over, adult ([facility]) - Primary | + + | Diabetes mellitus type 2 without retinopathy ([facility]) Type II or unspecified type |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 without mention of complication, not stated as uncontrolled | + + | AMARA treated with BiPAP | + + | Chronic diastolic heart failure ([facility]) Chronic diastolic heart failure | + + | Essential hypertension | + + | Diabetes mellitus with insulin therapy (HCC) | + + | Benign essential HTN Essential hypertension, benign | + + | Acute post-operative pain | + + | Personal history of DVT (deep vein thrombosis) Personal history of venous thrombosis | | and embolism | + + | Decreased mobility Abnormality of gait | + + documented in this encounter Administered Medications + +--------+ + +------+------+ | Medication Order | MAR | Action | Dose | Rate | Site | | | Action | Date | | | | + +--------+ + +------+------+ | acetaminophen (TYLENOL) tablet | Given | 03/02/20 | 1,000 mg | | | | 1,000 mg 1,000 mg, oral, EVERY 8 | | 18 6:35 | | | | | HOURS, 3 doses, First dose on | | AM PDT | | | | | 03/01/18 at 1415, Last dose on | | | | | | | 03/02/18 at 0600 | | | | | | + +--------+ + +------+------+ +-------+ + +---+---+ | Given | 03/01/20 | 1,000 mg | | | | | 18 10:31 | | | | | | PM PDT | | | | +-------+ + +---+---+ | Given | 03/01/20 | 1,000 mg | | | | | 18 3:26 | | | | | | PM PDT | | | | +-------+ + +---+---+ +---+---+ | | | +---+---+ + +-------+ + +---+---+ | acetaminophen (TYLENOL) tablet | Given | [...] +---+---+ +-------+ + +---+---+ | Given | 03/03/20 [...] | | +---+---+ + +-------+ +--------+---+---+ | celecoxib (CELEBREX) capsule | Given | 03/01/20 | 200 mg | | | | 200 mg 200 mg, oral, TWICE | | 18 8:33 | | | | | DAILY, 2 doses, First dose on Mon | | PM PDT | | | | | 03/01/18 at 1430, Last dose on Mon | | | | | | | 03/01/18 at 2100 | | | | | | + +-------+ +--------+---+---+ +-------+ +--------+---+---+ | Given | 03/01/20 | 200 mg | | | | | 18 3:26 | | | | | | PM PDT | | | | +-------+ +--------+---+---+ +---+---+ | | | +---+---+ + +-------+ +--------+---+---------+ | cyanocobalamin (VITAMIN B-12) | Given | 03/02/20 | 1,000 | | Abdomen | | injection 1,000 mcg 1,000 mcg, | | 18 8:42 | mcg | | | | subcutaneous, DAILY, 1 dose, | | AM PDT | | | | | First dose on e 03/02/18 at 0900 | | | | | | + +-------+ +--------+---+---------+ + +---+ | | | + +---+ | dextrose 50 % in water IV 25 mL | | | 25 mL, intravenous, NEEDED, | | | Starting Thu03/02/18 at 1556, | | | Until Thu03/03/18 at 1930, CBG | | | less than 70 mg/dL if patient | | | unable to take PO, per Adult | | | Hypoglycemia Protocol | | + +---+ | | | + +---+ + +-------+ +-------+---+---------+ | enoxaparin (LOVENOX) injection | Given | 03/01/20 | 40 mg | | Abdomen | | 40 mg 40 mg, subcutaneous, | | 18 8:03 | | | | | PREPROCEDURE ONCE, 1 dose, | | AM PDT | | | | | Starting 03/01/18 at 0609, | | | | | | | Until Thu03/01/18 at 0803 | | | | | | + +-------+ +-------+---+---------+ +---+---+ | | | +---+---+ + +-------+ +-------+---+---------+ | enoxaparin (LOVENOX) injection [...] PDT | | | | +-------+ +-------+---+---------+ + +---+ | | | + +---+ | enoxaparin (LOVENOX) injection | | | 1 dose, Starting Thu03/01/18 at | | | 0612, Until Thu03/01/18 at 0803 | | + +---+ | | | + +---+ + +-------+ +--------+---+---+ | fentaNYL (SUBLIMAZE) injection | Given | 03/01/20 | 50 mcg | | | | 50 mcg 50 mcg, intravenous, | | 18 1:30 | | | | | POSTPROCEDURE PRN, 4 doses, | | PM PDT | | | | | Starting Thu03/01/18 at 0944, | | | | | | | Until Thu03/01/18 at 1410, severe | | | | | | | pain while in Phase I Recovery | | | | | | + +-------+ +--------+---+---+ +-------+ +--------+---+---+ | Given | 03/01/20 | 50 mcg | | | | | 18 12:53 | | | | | | PM [...] | | | DAILY, First dose on Thu03/01/18 | | AM PDT | | [...] | | | Thu03/02/18 at 1556, Until Wed | | | 03/03/18 at 1930, CBG less than 70 | | | mg/dL per Adult Hypoglycemia | | | Protocol | | + +---+ | | | + +---+ + +-------+ +--------+---+---+ | HYDROmorphone (DILAUDID) | Given | 03/02/20 | 0.5 mg | | | | injection 0.5-1 mg 0.5-1 mg, | | 18 12:55 | | | | | intravenous, EVERY 1 HOUR | | PM PDT | | | | | NEEDED, Starting 03/01/18 at | | | | | | | 1412, Until Thu03/02/18 at 1618, | | | | | | | severe pain | | | | | | + +-------+ +--------+---+---+ +-------+ +--------+---+---+ | Given | 03/02/20 | 0.5 mg | | | | | 18 10:00 | | | | | | AM PDT | | | | +-------+ +--------+---+---+ | Given | 03/02/20 | 0.5 mg | | | | | 18 6:35 | | | | | | [...] | | | +---+---+ + +-------+ + +---+---------+ | insulin glargine (LANTUS) | Given | 03/02/20 | 28 Units | | Abdomen | | injection 28 Units 28 Units, | | 18 12:53 | | | | | subcutaneous, ONCE, 1 dose, Tue | | PM PDT | | | | | 03/02/18 at 1130 | | | | | | + +-------+ + +---+---------+ +---+---+ | | | +---+---+ + +-------+ [...] | | + +---+ + + + + +-------+---+ | insulin regular in NaCl 0.9% IV | Rate/Dos | 03/02/20 | 0.9 | 0.9 | | | infusion (1 unit/mL) 0.1-50 | e Change | 18 2:38 | Units/hr | mL/hr | | | Units/hr (0.1-50 mL/hr), | | PM PDT | | | | | intravenous, CONTINUOUS, Starting | | | | | | | 03/01/18 at 1300, Until Tue | | | | | | | 03/02/18 at 1511 | | | | | | + + + + +-------+---+ + + + +-------+---+ | Rate/Dose Change | 08/07/20 | 0.5 | 0.5 | | | | 18 1:34 | Units/hr | mL/hr | | | | PM PDT | | | | + + + +-------+---+ | Rate/Dose Change | 03/02/20 | 1.1 | 1.1 | | | | 18 11:38 | Units/hr | mL/hr | | | | AM PDT | | | | + + + +-------+---+ +---+---+ | | | +---+---+ + +-------+ +-------+---+---+ | ketorolac (TORADOL) injection | Given | 03/03/20 | 15 mg | | | | 15 mg 15 mg, intravenous, EVERY | | 18 6:19 | | | | | 6 HOURS, 8 doses, First dose | | AM PDT | | | | | (after last modification) on e | | | | | | | 03/02/18 at 1800, Last dose on Jasmyne | | | | | | | 03/04/18 at 1200 | | | | | | + +-------+ +-------+---+---+ +-------+ +-------+---+---+ | Given | 03/03/20 | 15 mg | | | | | 18 12:10 | | | | | | AM PDT | | | | +-------+ +-------+---+---+ | Given | 03/02/20 | 15 mg | | | | | 18 5:41 | | | | | | PM PDT | | | | +-------+ +-------+---+---+ +---+---+ | | | +---+---+ + +---------+ + + +---+ | lactated Ringers IV 10 mL/hr, | New Bag | 03/01/20 | 10 mL/hr | 10 mL/hr | | | intravenous, PROCEDURE | | 18 7:30 | | | | | CONTINUOUS, Starting Thu03/01/18 | | AM PDT | | | | | at 0615, Until Thu03/01/18 at 1410 | | | | | | + +---------+ + + +---+ +---+---+ | | | +---+---+ + + + +-------+-------+---+ | lactated Ringers IV 150 mL/hr, | Rate/Dos | 03/01/20 | 150 | 150 | | | intravenous, CONTINUOUS, | e Verify | 18 6:08 | mL/hr | mL/hr | | | Starting 03/01/18 at 1245, | | PM PDT | | | | | Until Thu03/02/18 at 0800 | | | | | | + + + +-------+-------+---+ +---------+ +-------+-------+---+ | New Bag | 03/01/20 | 150 | 150 | | | | 18 12:30 | mL/hr | mL/hr | | | | PM PDT | | | | +---------+ +-------+-------+---+ +---+---+ | | | +---+---+ + + + +---------+---+---------+ | lidocaine (LIDODERM) 5 % patch | Applied | 03/03/20 | 1 patch | | Abdomen | | 1 patch 1 patch, transdermal, | Patch | 18 8:51 | | | | | EVERY 24 HOURS, First dose on Thu | | [...] | +---+---+ + +-------+ + +---+---+ | metFORMIN (GLUCOPHAGE) tablet | Given | 03/01/20 | 1,000 mg | | | | 1,000 mg 1,000 mg, oral, TWICE | | 18 10:31 | | | | | DAILY, First dose on Thu03/01/18 | | PM PDT | | | | | at 2100, Until Discontinued | | | | | | + +-------+ + +---+---+ +---+---+ | | | +---+---+ + +-------+ +-------+---+---+ | metoclopramide HCl (REGLAN) | Given | 03/02/20 | 10 mg | | | | injection 10 mg 10 mg, | | 18 8:41 | | | | | intravenous, EVERY 6 HOURS, 4 | | AM PDT | | | | | doses, First dose on Thu03/01/18 | | | | | | | at 1415, Last dose on Thu03/02/18 | | | | | | | at 0815 | | | | | | + +-------+ +-------+---+---+ +-------+ +-------+---+---+ | Given | 03/02/20 | 10 mg | | | | | 18 2:47 | | | | | | AM PDT | | | | +-------+ +-------+---+---+ | Given | 03/01/20 | 10 mg | | | | | 18 8:33 | | | | | | PM [...] 8:14 | | | | | on 03/01/18 at 1415, Until | | PM PDT [...] | ondansetron (ZOFRAN) injection | Given | 03/03/20 | 4 mg | | | | 4 mg 4 mg, intravenous, EVERY 12 | | 18 3:40 | | | | | HOURS, 4 doses, First dose on | | AM PDT | | | | | 03/01/18 at 1730, Last dose on | | | | | | | 03/03/18 at 0530 | | | | | | + +-------+ +------+---+---+ +-------+ +------+---+---+ | Given | 03/02/20 | 4 mg | | | | | 18 5:42 | | | | | | PM PDT | | | | +-------+ +------+---+---+ | Given | 03/02/20 | 4 mg | | | | | 18 6:35 | | | | | | [...] PDT | | | | +-------+ +-------+---+---+ + +---+ | | | + +---+ | oxyCODONE (immediate release) | | | (ROXICODONE) liquid 1 dose, | | | Starting Thu03/01/18 at 1353, | | | Until Thu03/01/18 at 1354 | | + +---+ | | | + +---+ + + + +---+---+---+ | probiotic yogurt [...] | | +---+---+ + +-------+ +---------+---+---+ | promethazine (PHENERGAN) | Given | 03/01/20 | 12.5 mg | | | | injection 6.25-12.5 mg 6.25-12.5 | | 18 12:51 | | | | | mg, intravenous, POSTPROCEDURE | | PM PDT | | | | | PRN, 1 dose, Starting 03/01/18 | | | | | | | at 0945, Until Thu03/01/18 at | | | | | | | 1251, nausea/vomiting, 1st line | | | | | | + +-------+ +---------+---+---+ +---+---+ | | | +---+---+ [...] | | +---+---+ + +-------+ +--------+---+---+ | thiamine (VITAMIN B-1) | Given | 03/02/20 | 100 mg | | | | injection 100 mg 100 mg, | | 18 8:42 | | | | | intravenous, DAILY, 1 dose, First | | AM PDT | | | | | dose on Thu03/02/18 at 0900 | | | | | | + +-------+ +--------+---+---+ +---+---+ | | | +---+---+ + +-------+ +-------+---+---+ | thyroid tablet 30 mg 30 mg, | Given | 03/03/20 | 30 mg | | | | oral, DAILY, First dose on Thu | | 18 6:20 | | | | | 03/02/18 at 0700, Until | | AM PDT [...]
--- OUTSIDE RECORDS SUMMARY | ~2019-05-10 | XMS | Encounter Summary ---
Demographics + + + | Address | [address] | | | [place] [address] | + + + | Home Phone [...] + | Katalina Padilla | ECON | [address] | | | | | [place], [place] | | | | | [address] | | + + + + + | Ellie Vang | ECON | Unknown | | + + + + + Care Team Providers + +------+ + | Care Electrotype Finisher Name | Role | Phone | [...] | | 2019 | | [facility] | [facility] [address] | | | | | [address] | [place], [place] | | | | | Mailcode: [facility] | [phone] | | | | | for [facility] and | | | | | | [place] [address] | | | | | | [place], [place] | | | | | | [address] | | | | | | | [...] Flannery | | | | | | [place] | | | | | | [address] | | | | | | [phone] | | | | | | | [...] | | | | | [place], [place] | | | | | | [address] | | | | | | [phone] | | | | | | | | +--------+ + + + + | 07/08/ | Procedure | Surgery | | | | 2019 | Pass | | | | +--------+ + + + + documented as of this encounter Visit Diagnoses Not on filedocumented in this encounter"
--- OUTSIDE RECORDS SUMMARY | ~2019-05-10 | XMS | Encounter Summary ---
Demographics + + + | Address | [address] | | | [place] [address] | + + + | Home Phone [...] + | Katalina Padilla | ECON | [address] | | | | | [place], [place] | | | | | [address] | | + + + + + | Ellie Vang | ECON | Unknown | | + + + + + Care Team Providers + +------+ + | Care Environmental Engineering Technician Name | Role | Phone | [...] | | | | | [facility] [address] | | | | | | | [address] | | | | | | | Mailcode: | | | | | | | [facility] | | | | | | [facility] | | | | | | | [facility], | | | | | | | [address] | | | | | | | [place], [place] | | | | | | | [address] | | | | | | | Phone: | | | | | | | [phone] | | | | | | | Fax: | | | | | | | [phone] | +--------+--------+ + + + + Encounter Details +--------+---------+ + + + | Date | Type | Department | Care Team | Description | +--------+---------+ + + + | 06/16/ | Office | Digestive Health | Shereen Georges, | Morbid obesity with | | 2012 | Visit | [facility] [address] | ACNP [address] | BMI of 70 and over, | | | | [address] | Ave [place], [place] | adult (HCC) (Primary | | | | Mailcode: Center | [address] | Dx); Vitamin D | | | | for Health and | | deficiency disease; | | | | Healing, [address] | | Intertriginous | | | | [place], [place] | | candidiasis; | | | | [address] | | Diabetes mellitus | | | [...] | | | | | hernia | +--------+---------+ + + + Social History [...] + + + | Blood Pressure | 139/84 | 06/16/2013 1:13 PM | | | | | PST | | + + + + + | Pulse | 109 | 06/16/2013 1:13 PM | | | | | PST | | + + + + + | Temperature | 36.7 C (98.1 F) | 06/16/2013 1:13 PM | | | | | PST | | + + + + + | Respiratory Rate | 17 | 06/16/2013 1:13 PM | | | | | PST | | + + + + + | Oxygen Saturation | - | - | | + + + + + | Inhaled Oxygen | - | - | | | Concentration | | | | + + + + + | Weight | 178.8 kg (394 lb 1.6 | 06/16/2013 1:13 PM | | | | oz) | PST | | + + + + + | Height | 154.9 cm (5' 1") | 06/16/2013 1:13 PM | | | | | PST | | + + + + + | Body Mass Index | 74.46 | 06/16/2013 1:13 PM | | | | | PST | | + + + + + documented in this encounter Patient Instructions Patient Instructions Shereen Pinto ACNP - 06/16/2013 1:57 PM PST1. Dietitian consultation : Today. 2. Labs needed: H pylori,: Please go to the 3rd floor and have these labs done. Follow up with vitamin d and PTH in 1 month with PCP 3. Pap test: Please fax recent results to us. 4. Mammogram: Please fax latest report to us. 5. EKG: Please go to 9th floor today to get this done. 6 Pre-op Psychological Evaluation: If your referral is at [facility], pain management will call irma riggs in the next week to schedule. Will need referral In her area. Contact primary care provider for a name : psychiatrist or psychologist, o nce you have the name, then call us, we will Send them a form for guidance. 7 Sleep study: Please undergo a sleep study and have notes/tests faxed to us. If CPAP order ed please fax CPAP compliance report to us, surgeons generally require that you wear the mac basilia over 4 hours per night, 80% of the time. If your referral is at [facility], they will call y ou in the next week to schedule. She will arrange 8. Nephrology Consult: Please call [facility] ([phone]) and have them send you a urine specimen container. You will need to discuss your kidney stone risk with a nephrology provid er prior to proceeding with gastric bypass. If your referral is at [facility], they will call you in the next week to schedule. 9. See your pcp about: mammogram: we need the results, and control and your pap 10. Recommended/ weight loss: 5% wt loss goal o f20 lbs) Once the above list is completed and copies have been received by our office, we will submi t for insurance authorization then schedule with the surgeon. Goal timeframe for surgery: She would like her hernia repaired at the same time: betsy Feldman RN, [facility]- Nurse Practitioner for Bariatric Surgery [facility] | [address] | [place], [place] | [address] | Potential Contraindications to Bariatric Surgery Age [...] other providers does not guarantee that the [facility] Bariatric Surger y program will deem you a surgical candidate. documented in this encounter Progress Notes Shereen Pinto ACNP - 06/16/2013 1:28 PM PSTFormatting of this note might be different fro m the original. BARIATRIC INITIAL VISIT Provider: Shereen Pinto DNP, DANIELLEP, MANNEQUIN MOUNTER Referring Provider: Dr. Fadi Goodrich, [place] [phone] Reason for Requested Consultation: Initial evaluation for bariatric surgery. Elzbieta Cristina is interested in Frandy en y alfredo tomeka bypass. The pt is here With her sister. Following surgery her mother and sister will care for her, she will Stay in [place] after surgery so that she is close by. She lives in [place]. They have few stairs to get into their home. She can do at least 7 stairs. Can walk all thru [employer] 2 blocks easily legs start to hurt. Stop a few minutes to catch. History of Present Illness: She is a morbidly obese, 38 y.o. female with a BMI of 74.28, 3 94 lbs., and 5'1" inches who has failed prior attempts at sustained dietary/medical weight l oss and desires surgical weight loss in order to "Loose 200 pounds". She has recently gained weight, she met with our yardage control clerk today, she has been making poor food choices, decreased activity due to a sprained muscle in her back. She has a diagnosis of sleep apnea, and has been unable to tolerate all forms of the mask, as she develops anxiety Previously at 495: lost almost 100 pounds, improved breathing, but still sleeps in a reclin er Duration of obesity: 29 years. Onset of obesity at age 9 First diet attempts at age 12 Personally initiated diets: "all my life" Exercise, diet and weight watchers with 50 pounds of weight loss 2011 Atkins: she is currently on this diet and has lost 113 pounds over 8 months 2013 Phentermin medication: with recent weight gain of 12 pounds Programmatic diets: none Physician Monitored diet: none Use of Redux or Phen/fen: no Orthodoxy or cultural reason you would refuse blood products? no Comorbidities include: Type 2 diabetes, sleep apnea, insulin resistance, obesity related hy poventilation syndrome, osteoarthritis, intertrigenous skin infections, stress urinary incon tinence, GERD (gastroesophageal reflux disease), hypertension, hyperlipidemia and polycystic ovary disease All previous chart notes from PCP reviewed, previous tests and labs reviewed. ALLERGIES: Allergies Allergen Reactions Amoxicillin Benadrilina (Diphenhydramine Hcl) Hives Parlodel (Bromocriptine) Unknown Blood clots Current outpatient prescriptions:ALPRAZolam XR 3 mg Oral tablet extended release 24 hr, Golden e 3 mg by mouth once daily in the morning. , Disp: , Rfl: ascorbic acid (VITAMIN C) 500 mg Oral tablet, Take 500 mg by mouth once daily. , Disp: , R fl: ASPIRIN/ACETAMINOPHEN/JARON CARB (EXCEDRIN BACK & BODY ORAL), Take by mouth four times daily as needed. , Disp: , Rfl: ergocalciferol (VITAMIN D2) 50,000 unit oral capsule, Take 50,000 Units by mouth every lucía n days., Disp: , Rfl: ferrous sulfate 325 mg (65 mg iron) Oral tablet, Take 325 mg by mouth two times daily. , D isp: , Rfl: FLUoxetine 40 mg Oral capsule, Take 40 mg by mouth once daily. , Disp: , Rfl: HUM INSULIN NPH/REG INSULIN HM (HUMULIN 70/30 SUBQ), Inject 50 cc under the skin (SUBC) onc e daily. , Disp: , Rfl: lactobacillus rhamnosus, GG, Oral capsule, Take 1 Cap by mouth once daily., Disp: 30 Cap, R fl: 0 lidocaine 5 % Topical Cream, Apply to affected area once daily as needed. Apply to affecte d area., Disp: 15 g, Rfl: 2 metFORMIN 1,000 mg Oral tablet, Take 1,000 mg by mouth once daily. , Disp: , Rfl: OLANZAPINE (ZYPREXA ORAL), Take 30 mg by mouth once daily. , Disp: , Rfl: oxyCODONE, immediate release, 5 mg Oral tablet, Take 4 Tabs by mouth every three hours as n eeded for severe pain., Disp: 200 Tab, Rfl: 0 phentermine 37.5 mg Oral tablet, Take 1 tablet by mouth once daily in the morning. Administ er before breakfast., Disp: 90 tablet, Rfl: 3 piroxicam 20 mg Oral capsule, Take 20 mg by mouth once daily. , Disp: , Rfl: polyethylene glycol 17 gram/dose Oral Powder, Take 17 g by mouth once daily., Disp: 238 g, Rfl: 0 VIT/IRON FUMARATE/FA ( PLUS ORAL), Take by mouth. , Disp: , Rfl: ranitidine 300 mg Oral tablet, Take 300 mg by mouth once daily at bedtime. , Disp: , Rfl: senna-docusate 8.6-50 mg Oral tablet, Take 1 Tab by mouth two times daily., Disp: 60 Tab, R fl: 3 topiramate (TOPAMAX) 25 mg oral tablet, Take 25 mg by mouth. 25 mg am, 50 mg pm., Disp: , R fl: TORSEMIDE ORAL, Take 40 mg by mouth [...] hernia, incarcerated 2012 Hernia of abdominal wall Stroke Dizziness Numbness [...] Topics Smoking status: Former Smoker Smokeless tobacco: Not on file Alcohol [...] Arthritis M&F Heart Attack Father Diabetes Mother Review of Systems: General: constitutional symptoms of fatigue, weakness (only with long walks) , unintentiona l weight loss, fevers, chills, night sweats. Eyes/Ears/Nose/Throat: Denies visual changes, (with anxiety, or with migraine) sore throa t, dental pain, hoarseness, dysphagia, oral or tongue lesions. Respiratory: Denies shortness of breath only when she walks, sleep in a recliner because s he can breath better, otherwise has pressure in her chest from the excess weight and bulk of her stomach. She has noticed improved Sleep with the recent 100 pound weight loss, and it's easier to breath. Denies cough or whe ezing. Denies nocturnal snoring, daytime drowsiness or morning headaches. Denies history of asthma. Has a cpap machine, but has too much anxiety to use. Cardiovascular: Denies exertional chest pain, palpitations, syncope, orthopnea, or paroxys mal nocturnal dyspnea. history of lower extremity edema diffuse edema that includes her stom ach as well , hypertension, hyperlipidemia. Denies CHF, MD, ischemic heart disease, DVT/PE, or pulmonary hypertension. States able to climb one flights of stairs. Neurologic: The patient denies any symptoms of neurological impairment or TIAs; denies dip lopia, dysphasia or unilateral disturbance of motor or sensory function. Denies loss of carol nce or vertigo, persistent headaches ( migraines are A issue, current treatment by neurolog ist) , numbness or paresthesias. No history of seizure disorder.history of stroke related to Parlodel administration, none since that event Musculoskeletal: symptoms of joint pain ( in her knees, back pain, low) , swelling, myalgi as or back pain. Gastrointestinal: Denies abdominal pain from her hernia or flank pain, anorexia, nausea o r vomiting, dysphagia, change in bowel habits, black or bloody stools. Denies history of ulc ers or hernias.persistent reflux symptoms. Denies history of liver disease or jaundice. Genitourinary: Denies urinary incontinence.only with coughing history of kidney stones. De nies urethral discharge, dysuria, hematuria or sores on the genitals. menstrual irregularity, with PCOS, no history of endometriosis or abnormal PAP's but has n't had a pap for some years one. Current method of control is:abstinence Skin: intertrigenous skin infections. Current multiple skin folds, with infection/ skin b reak down, never clear Psychological: anxiety, depression a little history with mood swings, pyrexa has controlle d it, emotionally labile without medication denies , thoughts of suicide or hallucinations. Heme/Lymphatic: history of anemia with heavy menses The patient denies abnormal bruising, abnormal bleeding or enlarged lymph nodes. Metabolic: Denies symptoms of hypo or hyperthyroidism. History of DM No polyuria, polyphagi a or polydipsia. Denies history of gout. OBJECTIVE BP 139/84 | Pulse 109 | Temp (Src) 36.7 C (98.1 F) (Oral) | RR 17 | Ht 1.549 m (5' 1") | Wt 178.763 kg (394 lb 1.6 oz) | BMI 74.5 kg/(m^2) Physical exam: General: Alert and cooperative. Neuro: Oriented x 3. CN III-XII grossly intact. No focal deficits. HEENT: Oropharynx clear without lesion or exudate. Neck: Neck supple. No adenopathy. Thyroid symmetric & normal size. Respiratory: Good diaphragmatic excursion. Lungs clear to auscultation bilaterally. Cardiac: Regular rate and rhythm, no murmur, gallop or bruits. No carotid bruits noted. Extremities: lower extremity edema 2 + Abdomen: Obese, gynecoid surgical habitus, soft, nontender, no appreciable masses or hernia . Large pannus There is erythema to all large skin folds of the pannus with cracking in the creases, no si gn of cellulitis, Discomfort is associated with the area. Areas of slight erythema in her arm skin folds, les s prevalent. Psych: No problems noted. Laboratory Data: January 2013 From her PCP Date TSH uIU/ml Normal Impression: Ms cristina is a 38 yo female who meets and or exceeds NIH criteria for morbid obesity with a BMI of 74.28 and comorbidities related to obesity includingType 2 diabetes, sleep apnea, i nsulin resistance, obesity related hypoventilation syndrome, osteoarthritis, intertrigenous skin infections, stress urinary incontinence, GERD (gastroesophageal reflux disease), hypert ension, hyperlipidemia and polycystic ovary disease , which may be improved with bariatric surgery. She is s/p umbilitcal incarcerated hernia repair in October [address] Brian, and has a recurrent ventral hernia that is large and causes her pain, she would like it repaired at t he same time. She is a high risk patient related to her BMI, and as well sleep apnea will be of concern a s she doesn't tolerate any type of mask. She has lost 100 pounds and will contact her neurol ogist About another sleep study for assessment at this point. She still sleeps in a recliner for ease of breathing. She is a motivated patient and has lost 100 pounds with Atkins, Her target prior to surgery is 20 pounds. She met with Dr. Swan (endocrine) and our diet ician today who identified some poor food choices that likely have led to her Increased weight. Records have been reviewed from her PCM and several attempts have been made to lose weight over the past years without success. She qualifies for medically necessary weight loss emerson jerrica to control co-morbidities. She has attended the Public Informational Session in which risks and benefits of bariatri c surgery were discussed. Discussion of realistic expectations of bariatric surgery was hel d today. A Bariatric notebook with pre-op, inter-op and post-op guidance and information was provide d for the patient today. Plan: 1. Dietitian consultation: Today. 2. Labs needed: H pylori,: Please go to the 3rd floor and have these labs done. Follow up with vitamin d and PTH in 1 month with PCP 3. Pap test: Please fax recent results to us. 4. Mammogram: Please fax latest report to us. 5 Pre-op Psychological Evaluation:Please talk with your pcp about a referral in your area. Let us know the name, we will Send the packet of information needed for a evaluation. This individual cannot be anyone th at has previous seen you. 6 Sleep study: Please undergo a sleep study and have notes/tests faxed to us. If CPAP order ed please fax CPAP compliance report to us, surgeons generally require that you wear the mac basilia over 4 hours per night, 80% of the time. Please send us the results of that study. It is extremely important if you have sleep a pnea that is moderate to severe, that it be treated and that prior to and post op you use yo ur cpap machine. This may require medication to tolerate The mask or other potential strategies by the sleep specialist so that you can tolerate the therapy. 8. Nephrology Consult: Please call [facility] ([phone]) and have them send you a urine specimen container. You will need to discuss your kidney stone risk with a nephrology provid er prior to proceeding with gastric bypass. If your referral is at [facility], they will call you in the next week to schedule. You are at increased risk of renal stones after surgery, with your history of stone, we want to check of oxalate in your urine. You will need a referral to a welding robot operator If your level is elevated. 9. See your pcp about: mammogram: we need the results, please also talk with your provider about control, initiation prior to surgery, and send the results of your pap to us. There is increased fertility related to weight loss, we would not recommend a within 1 year of surgery 10. Recommended/ weight loss: 5% wt loss goal of 20 Lbs 11. Please note: on exam there is marked excoriation, open wounds that are small slit like wounds, from her pannus. I discussed the skin condition with Dr. Brian who will be her surgeon. This skin condit ion will not delay her surgery. Once the above list is completed and copies have been received by our office, we will submi t for insurance authorization then schedule with the surgeon. Goal timeframe for surgery: She would like her hernia repaired at the same time: and wants surgery as soon as possible Shereen Pinto DNP ACNP, MANNEQUIN MOUNTER Nurse Practitioner for Bariatric Surgery [facility] | [address] | [place], [place] | [address] | Potential Contraindications to Bariatric Surgery Age [...] other providers does not guarantee that the [facility] Bariatric Surger y program will deem you a surgical candidate. New pt visit. Start time: 1:30, end time 2:30. I spent a total of 50 minutes face to face with this patie nt. Over 50% of time spent in counseling. ~30 minutes were spent doing chart review prior to the visit and documentation after the v isit. documented in this en counter Plan of Treatment +--------+ + + + + | Date | Type | Specialty | Care Team | Description | +--------+ + + + + | 05/13/ | Office | Plastic Surgery | Archie Ybarra MD | | | 2018 | Visit | | [address] | | | | | | [place], [place] | | | | | | [address] | | | | | | [phone] | | | | | | | [...] | | | | | [address] [place] [place], [place] | | | | | | [address] | | | | | | [phone] | | | | | | | | +--------+ + + + + | 07/08/ | Procedure | Surgery | | | | 2018 | Pass | | | | +--------+ + + + + documented as of this encounter Results H. PYLORI IGG, IGA [...] at | | | | | | Vdancer.qualifyor Test | | | | | | developed and | | | | | | characteristics | | | | | | determined by | | | | | | [employer]. See | | | | | | Compliance Statement B: | | | | | | [facility] [employer].qualifyor/CSPerformed | | | | | | by copygram,[address] | | | | | | Liliana Martinez, [facility] [place] | | | | | | [id number] | | | | | | [phone].[facility]. | | | | | | Mt guillory, | | | | | | , [...] B: | | | | | | [employer] [employer].qualifyor/CS | | | | + + + + + + + + | Specimen | + + | Blood - Blood | + + + + + + + | Performing | Address | City/State/Zipcode | Phone Number | | Organization | | | | + + + + + | [facility] | [address] | [place], [place] | | | [facility] | | [address] | | + + + + + documented in this encounter Visit Diagnoses + + | Diagnosis | + + | Morbid obesity with BMI of 70 and over, adult (HCC) - Primary | + + | Vitamin D deficiency [...]
--- OUTSIDE RECORDS SUMMARY | ~2019-05-10 | XMS | Encounter Summary ---
Demographics + + + | Address | [address] | | | [place] [address] | + + + | Home Phone | | + + + | Preferred Language | Unknown | + + + | Marital Status | Single | + + + | Jewish Affiliation | NON | + + + [...] + | Katalina Padilla | ECON | [address] | | | | | [place], [place] | | | | | [address] | | + + + + + | Ellie Vang | ECON | Unknown | | + + + + + Care Team Providers + +------+ + | Care Tufting Machine Operator Name | Role | Phone | + +------+ + | Kenyatta Cardenas MD | PCP | | + +------+ + Encounter Details +--------+ + + + + | Date | Type | Department | Care Team | Description | +--------+ + + + + | 06/23/ | Procedure | 6A Intra Op [facility] | | | | 2018 | Pass | [facility] | | | | | | Admitting Desk | | | | | | Located on the | | | | | | [facility] [address] [facility] | | | | | | [facility] | | | | | | [place], [place] | | | | | | [address] | | | +--------+ + + + [...] | | 2019 | Visit | | [address] | | | | | | [place], [place] | | | | | | [address] | | | | | | [phone] | | | | | | | [...] | | | | | [address] [place], [place] | | | | | | [address] | | | | | | [phone] | | | | | | | | +--------+ + + + + | 07/08/ | Procedure | Surgery | | | | 2018 | Pass | | | | +--------+ + + + + documented as of this encounter Visit Diagnoses Not on filedocumented in this encounter"
--- OUTSIDE RECORDS SUMMARY | ~2019-05-10 | XMS | Encounter Summary ---
Demographics + + + | Address | [address] | | | [place] [address] | + + + | Home Phone | | + + + | Preferred Language | Unknown | + + + | Marital Status | Single | + + + | Yazidism Affiliation | NON | + + + [...] + | Katalina Padilla | ECON | [address] | | | | | [place], [place] | | | | | [address] | | + + + + + | Ellie Vang | ECON | Unknown | | + + + + + Care Team Providers + +------+ + | Care Metal Punch Press Operator Name | Role | Phone | [...] on | [facility] [address] | [address] [employer] | | | | | [address] | [facility] [address] | | | | | Mailcode: Center | [place], [place] | | | | | [facility] and | [address] | | | | | [facility] [address] | [phone] | | | | | [place], [place] | | | | | | [address] | | | | | | [phone] | | | +--------+ + + + [...] [address] | | | | | | [place], [place] | | | | | | [address] | | | | | | [phone] | | | | | | | | +--------+ + + + + | 06/27/ | Telephone-S | Pre-operative | | | | 2018 | cheduled | Medicine | | | +--------+ + + + + | 06/30/ | Office | Cardiology | Randell Franks, | | | 2019 | Visit | | [address] | | | | | | [place], [place] | | | | | | [address] | | | | | | [phone] | | | | | | | | +--------+ + + + + | 07/08/ | Procedure | Surgery | | | | 2018 | Pass | | | | +--------+ + + + + documented as of this encounter Visit Diagnoses Not on filedocumented in this encounter"
--- OUTSIDE RECORDS SUMMARY | ~2019-05-10 | XMS | Encounter Summary ---
Demographics + + + | Address | [address] | | | [place] [address] | + + + | Home Phone [...] [place], [place] | | | | | [address] | | + + + + + | Ellie Vang | ECON | Unknown | | + + + + + Care Team Providers + +------+ + | Care Refining Equipment Operator Name | Role | Phone | + +------+ + | Fadi Goodrich DO | PCP | | + +------+ + Reason for Visit + + + | Reason | Comments | + + + | Follow-up visit | | + + + Consultation (Routine) [...] Diabetes & | Morbid | Kathy M, DIGITAL MARKETING CONSULTANT | [address] | | | | Metabolism | obesity | [address] | [address] | | | | | ([facility]) | [address], | [address] | | | | | Procedures | [address] | Physician's | | | | | CONSULT TO | [place], [place] | Pavilion | | | | | ENDO | [address] | Physician's | | | | | [address] | Phone: | Pavilion | | | | | | [phone] | [place], [place] | | | | | | Fax: | [address] | | | | | | [phone] | Phone: | | | | | | | [phone] | | | | | | | Fax: | | | | | | | [phone] | +--------+--------+ + + + + Encounter Details +--------+---------+ + + + | Date | Type | Department | Care Team | Description | +--------+---------+ + + + | 06/16/ | Office | Aniket Lopez | Randell Franks, | Type 2 diabetes | | 2012 | Visit | Diabetes Health | [address] | mellitus (HCC) | | | | [facility] | [place], [place] | (Primary Dx); Morbid | | | | [address] | [address] | obesity (HCC) | | | | [address] | [phone] | | | | | Physician's | | | | | | Pavilion | | | | | | Physician's Pavilion | | | | | | [place], [place] | | | | | | [address] | | | | | | [phone] | | | +--------+---------+ + + + [...] + + + | Blood Pressure | 140/80 | 06/16/2013 11:23 AM | | | | | PST | | + + + + + | Pulse | 70 | 06/16/2013 11:23 AM | | | | | PST [...] + + + + | Weight | 177.4 kg (391 lb) | 06/16/2013 11:23 AM | | | | | PST | | + + + + + | Height | 154.9 cm (5' 1") | 06/16/2013 11:23 AM | | | | | PST | | + + + + + | Body Mass Index | 73.88 | 06/16/2013 11:23 AM | | | | | PST | | + + + + + documented in this encounter Patient Instructions Patient Instructions Randell Franks MD - 06/16/2013 11:35 AM PST Okay with me for you to go up on your topiramate dose to 100 mg twice a day (as tolerated). documented in this encounter Progress Notes Randell Franks MD - 06/16/2013 12:58 PM PSTFormatting of this note might be different f rom the original. Reason for visit: Follow-up T2DM PCP: Fadi Goodrich DO Problem List: Patient Active Problem List Diagnosis Hernia Morbid obesity Type 2 diabetes mellitus AMARA (obstructive sleep apnea) Edema GERD (gastroesophageal reflux disease) Medications: Current Outpatient Prescriptions Medication Sig ALPRAZolam XR 3 mg Oral tablet extended release 24 hr Take 3 mg by mouth once daily in the morning. ascorbic acid (VITAMIN C) 500 mg Oral tablet Take 500 mg by mouth once daily. ASPIRIN/ACETAMINOPHEN/JARON CARB (EXCEDRIN BACK & BODY ORAL) Take by mouth four times da mireya as needed. ergocalciferol (VITAMIN D2) 50,000 unit oral capsule Take 50,000 Units by mouth every s even days. ferrous sulfate 325 mg (65 mg iron) [...] 1 Tab by mouth two times daily. topiramate (TOPAMAX) 25 mg oral tablet Take 25 mg by mouth. 25 mg am, 50 mg pm. TORSEMIDE ORAL Take 40 mg by mouth two times daily. traZODone 150 mg Oral tablet Take 150 mg by mouth once daily at bedtime. No current facility-administered medications for this visit. S: Elzbieta is a 38 y.o. female here for follow-up of obesity and T2DM. Since I saw Ms. Livia singh last, she started on phentermine with good appetite suppression. She also had noted fluct uating LE fluid retention and has also started on a diuretic. Her physician also began her on topiramate on 06/01/13 for migraines (25 q AM, 50 q PM). She is tolerating all these meds well and reports no side effects. Finally, she reports a recent back injury that caused he r to reduce her activity. She follow-up with Dr. Brian and is now in process for a RYGBP. Weight: up from last visit Diet: healthy Exercise: less than before ROS: No CP, SOB. O: vitals BP 140/80 | Pulse 70 | Ht 1.549 m (5' 1") | Wt 177.356 kg (391 lb) | BMI 73.92 kg /(m^2) Gen: pleasant, NAD Lungs: Clear to auscultation, no crackles Heart: Reg, no MRG Labs: None new to review. Assessment: 1) T2 Diabetes: Under good control. Will continue present management, monitor glucose contr ol. 2) Morbid obesity: Although she has not lost weight since starting the phentermine, I suspe ct that given her nice response to this med that her current weight gain is more likely due to fluid retention. Also, she is now on topiramate, which will likely potentiate her anorexi a response. For now will leave her on her current meds and follow her along. Await RYGBP. Plan: 1. Continue healthy eating, be as active as she can be 2. Continue phentermine and topiamate 3. F/U 3 month, check A1c at that time.Electronically signed by Randell Franks MD at 1:29 PM PSTdocumented in this encounter Plan of Treatment +--------+ + + + + | Date | Type | Specialty | Care Team | Description | +--------+ + + + + | 05/13/ | Office | Plastic Surgery | Archie Ybarra MD | | | 2018 | Visit | | [address] | | | | | | [place], [place] | | | | | | [address] | | | | | | [phone] | | | | | | | [...] | | | | | [address] [place], [place] | | | | | | [address] | | | | | | [phone] | | | | | | | [...]
--- OUTSIDE RECORDS SUMMARY | ~2019-05-10 | XMS | Encounter Summary ---
Demographics + + + | Address | [address] | | | [place] [address] | + + + | Home Phone [...] + | Katalina Padilla | ECON | [address] | | | | | [place], [place] | | | | | [address] | | + + + + + | Ellie Vang | ECON | Unknown | | + + + + + Care Team Providers + +------+ + | Care Cementer Hand Name | Role | Phone | [...] | 2018 | Visit | Preventive at [facility] | MD [address] | mellitus without | | | | [address] | Ave [place], [place] | complication, with | | | | Mailcode: [facility] | [address] | long-term current | | | | [facility] | [phone] | use of insulin ([facility]) | | | | and Healing, | | (Primary Dx); | | | | [address] | | Chronic right-sided | | | | [place], [place] | | heart failure (HCC) | | | | [address] | | | | | | [phone] | | | +--------+---------+ + + + [...] management of her heart failure by her Dry Press Operator Helper 3) Check A1c, lipids 4) Await bariatric surgery in February 2018 5) Continue phentermine 37.5 mg daily 6) Continue wound care, non-pressure ambulation of right foot wound 7) Follow-up 4-6 months In the interim, the patient underwent bariatric surgery and was [facility]. Today, the patient [...] 06/23 - She is working with the car tester in her office - She is taking [...] tongue once daily., Disp: , Rfl: CALCIUM CRB&DQV-G4-DVB80-GENIS ORAL, Take 2 tablets by mouth two [...] 3.19 11/28/2016 Lab Results Component Value Date [id number] 88.6 05/27/2018 Lab Results Component Value Date [...] weight of 320lbs. Plan to work with car tester from bariatric surgery, identify etio logy of [...] is currently being managed well by her Dry Press Operator Helper with diuretics and mainte nance of her [...] Gissell Clements MD Fellow, Cardiovascular Medicine Pager [phone] signed by Gissell Clements MD at 06/04/2018 [...] [address] | | | | | | [place], [place] | | | | | | [address] | | | | | | [phone] | | | | | | | [...] | | | | | [address] [place], [place] | | | | | | [address] | | | | | | [phone] | | | | | | | [...]
--- OUTSIDE RECORDS SUMMARY | ~2019-05-10 | XMS | Encounter Summary ---
Demographics + + + | Address | [address] | | | [place] [address] | + + + | Home Phone [...] + | Katalina Padilla | ECON | [address] | | | | | [place], [place] | | | | | [address] | | + + + + + | Ellie Vang | ECON | Unknown | | + + + + + Care Team Providers + +------+ + | Care Production Support Specialist Name | Role | Phone | + +------+ + | Fadi Goodrich DO | PCP | | + +------+ + Reason for Visit + + + | Reason | Comments | + + + | Refill Request | PHENTERMINE 37.5 mg | + + + Encounter Details +--------+--------+ + + + | Date | Type | Department | Care Team | Description | +--------+--------+ + + + | 12/02/ | Refill | Cardiology | Randell Franks, | Refill Request | | 2019 | | Preventive at [facility] | [address] | (PHENTERMINE 37.5 mg | | | | [address] | [place], [place] | ) | | | | Mailcode: [facility] | [address] | | | | | [facility] | [phone] | | | | | and [address], | | | | | | [address] | | | | | | [place], [place] | | | | | | [address] | | | | | | [phone] | | | +--------+--------+ + + + [...] [address] | | | | | | [place], [place] | | | | | | [address] | | | | | | [phone] | | | | | | | | +--------+ + + + + | 06/27/ | Telephone-S | Pre-operative | | | | 2018 | cheduled | Medicine | | | +--------+ + + + + | 06/30/ | Office | Cardiology | Randell Franks, | | | 2018 | Visit | | [address] | | | | | | [place], [place] | | | | | | [address] | | | | | | [phone] | | | | | | | | +--------+ + + + + | 07/08/ | Procedure | Surgery | | | | 2019 | Pass | | | | +--------+ + + + + documented as of this encounter Visit Diagnoses Not on filedocumented in this encounter"
--- OUTSIDE RECORDS SUMMARY | ~2019-05-10 | XMS | Encounter Summary ---
Demographics + + + | Address | [address] | | | [place] [address] | + + + | Home Phone [...] + | Katalina Padilla | ECON | [address] | | | | | [place], [place] | | | | | [address] | | + + + + + | Ellie Vang | ECON | Unknown | | + + + + + Care Team Providers + +------+ + | Care Plastic Surgery Nurse Name | Role | Phone | + +------+ + | Kenyatta Cardenas MD | PCP | | + +------+ + Encounter Details +--------+ + + + + | Date | Type | Department | Care Team | Description | +--------+ + + + + | 01/26/ | Abstract | Cardiology | Branden Gutiérrez MD | | | 2019 | | Preventive at [facility] | [address] | | | | | [address] | [place], [place] | | | | | Mailcode: CH9A | [address] | | | | | [facility] | [phone] | | | | | and Healing, | | | | | | [address] | | | | | | [place], [place] | | | | | | [address] | | | | | | [phone] | | | +--------+ + + + [...] | | 2019 | Visit | | [address] | | | | | | [place], [place] | | | | | | [address] | | | | | | [phone] | | | | | | | [...] | | | | | [address] [place], [place] | | | | | | [address] | | | | | | [phone] | | | | | | | | +--------+ + + + + | 07/08/ | Procedure | Surgery | | | | 2018 | Pass | | | | +--------+ + + + + documented as of this encounter Visit Diagnoses Not on filedocumented in this encounter"
--- OUTSIDE RECORDS SUMMARY | ~2019-05-10 | XMS | Encounter Summary ---
Demographics + + + | Address | [address] | | | [place] [address] | + + + | Home Phone [...] + | Katalina Padilla | ECON | [address] | | | | | [place], [place] | | | | | [address] | | + + + + + | Ellie Vang | ECON | Unknown | | + + + + + Care Team Providers + +------+ + | Care Legal Editor Name | Role | Phone | + +------+ + | Fadi Goodrich DO | PCP | | + +------+ + Encounter Details +--------+ + + + + | Date | Type | Department | Care Team | Description | +--------+ + + + + | 02/24/ | Abstract | Cardiology | Randell Franks, | | | 2015 | | Preventive at [facility] | MD [address] | | | | | [address] | Ave [place], [place] | | | | | Mailcode: [facility] | [address] | | | | | [facility] | [phone] | | | | | and Healing, | | | | | | [address] | | | | | | [place], [place] | | | | | | [address] | | | | | | [phone] | | | +--------+ + + + [...] [address] | | | | | | [place], [place] | | | | | | [address] | | | | | | [phone] | | | | | | | [...] | | | | | [address] [place], [place] | | | | | | [address] | | | | | | [phone] | | | | | | | | +--------+ + + + + | 07/08/ | Procedure | Surgery | | | | 2019 | Pass | | | | +--------+ + + + + documented as of this encounter Visit Diagnoses Not on filedocumented in this encounter"
--- OUTSIDE RECORDS SUMMARY | ~2019-05-10 | XMS | Encounter Summary ---
Demographics + + + | Address | [address] | | | [place] [address] | + + + | Home Phone [...] + | Katalina Padilla | ECON | [address] | | | | | [place], [place] | | | | | [address] | | + + + + + | Ellie Vang | ECON | Unknown | | + + + + + Care Team Providers + +------+ + | Care Evaporator Supervisor Name | Role | Phone | [...] | | 2019 | | Preventive at [facility] | [address] | (PHENTERMINE 37.5 mg | | | | [address] | [place], [place] | ) | | | | Mailcode: [place] | [address] | | | | | [facility] | [phone] | | | | | and [address], | | | | | | [address] | | | | | | [place], [place] | | | | | | [address] | | | | | | [phone] | | | +--------+--------+ + + + [...] [address] | | | | | | [place], [place] | | | | | | [address] | | | | | | [phone] | | | | | | | | +--------+ + + + + | 06/27/ | Telephone-S | Pre-operative | | | | 2018 | cheduled | Medicine | | | +--------+ + + + + | 06/30/ | Office | Cardiology | Randell Franks, | | | 2018 | Visit | | [address] | | | | | | [place], [place] | | | | | | [address] | | | | | | [phone] | | | | | | | | +--------+ + + + + | 07/08/ | Procedure | Surgery | | | | 2019 | Pass | | | | +--------+ + + + + documented as of this encounter Visit Diagnoses Not on filedocumented in this encounter"
--- OUTSIDE RECORDS SUMMARY | ~2019-05-10 | XMS | Encounter Summary ---
Demographics + + + | Address | [address] | | | [place] [address] | + + + | Home Phone [...] [place], [place] | | | | | [address] | | + + + + + | Ellie Vang | ECON | Unknown | | + + + + + Care Team Providers + +------+ + | Care Meter Repairer Helper Name | Role | Phone | [...] INCISIONAL HERNIA | | 2015 | | [facility] | [address] | REPAIR | | | | Admitting Desk | [address] | | | | | Located on the 9 | [place], [place] | | | | | floor [address] | [address] | | | | | [address] | [phone] | | | | | [place], [place] | | | | | | [address] | | | +--------+---------+ + + + [...] + documented in this encounter Discharge Summaries Gaob Langston MD - 03/21/2015 12:15 PM PDTAddendum [...] port site who was transferre d to [facility] for concern of an incarcerated hernia. On [...] mouth once daily. , Historical Med CALCIUM CRB&GQT-I0-YFP44-GENIS ORAL Take 1 tablet by mouth two [...] 10:40 AM Randell Franks Cardiology Preventive at [facility] [phone] Cardiology 04/09/2015 1:00 PM Egs Ppv Tra Trauma Emergency General Surgery at [facility] [phone] [facility] Outstanding labs/studies: None Discharging Physician: GABO LANGSTON MD Attending Physician: Dr. Cantu PCP: Fadi Goodrich DO Signed: GABO LANGSTON MD Pager #[phone] [employer] Journalist [facility] Associated attestation - Tye Carrillo DO - 03/12/2015 9:12 AM PDTAttending: I discussed this patient with the resident and agree with the assessment and plan as outlin ed in this note and participated in the planning of care. Tye Carrillo DO, SIDRA, FACS Division of Trauma, Critical Care & Acute Care Surgery [facility] [phone] documented in this encounter Medications at Time of Discharge + + + +---------+--------+ + | Medication | Sig | Dispensed | Refills | Start | End Date | | | | | | Date | | + + + +---------+--------+ + | CALCIUM | Take 2 tablets by | | 0 | | | | CRB&AAU-L4-HZX22-GEN | mouth two times | | | [...] might be differ ent from the original. [facility] DEPARTMENT OF SURGERY EMERGENCY GENERAL SURGERY Division [...] obesity with known ventral hernias transferred to [facility] for surgical managem ent of ventral hernia, now s/p repair. Post surgical pain: -patient ready for d/c, discussed f/u. Patient lives far away and has other appointments at [facility]. Will attempt to coordinate appointments. Discharge Plan: D/c today GABO LANGSTON MD Pager #[phone] [employer] Journalist [facility] Nataliia Mendez, Salomón rose R - 03/02/2015 1:12 PM PDT [facility] DEPARTMENT OF SURGERY EMERGENCY GENERAL SURGERY Division of Trauma and Critical Care Attending Physician: Shahid Cantu MD Progress Note Note Date: 03/02/2015 Admission Date: 2015 DYLAN ROMERO, Hospital Day #2 40 F PMH morbid obesity (BMI 71 today), DM2, depression, GERD, h/o stroke at age 18, and kn own ventral hernias transferred to [facility] for surgical treatment of suspected incarcerated yuriy [...] obesity with known ventral hernias transferred to [facility] for surgical managem ent of ventral hernia, [...] will be robel ing her home to [place], [place]. CALVIN ROMERO MD PGY-1 Anesthesiology Pager: [phone] [facility] [address] [place] [phone] Karthik Oneill MD - 03/02/2015 8:26 AM [id number] Calvin William Md - 03/01/2015 5:34 PM PDT Brief Post Operative Note: 40 F PMH morbid obesity (BMI 71 today), DM2, depression, GERD, h/o stroke at age 18, and kn own ventral hernias transferred to [facility] for surgical treatment of incarcerated ventral herni [...] control CALVIN ROMERO MD PGY-1 Anesthesiology Pager: [phone] signed by Calvin Romero Md at 03/01/2015 [...] [address] | | | | | | [place], [place] | | | | | | [address] | | | | | | [phone] | | | | | | | [...] | | | | | [address] [place], [place] | | | | | | [address] | | | | | | [phone] | | | | | | | [...] | | Attending Surgeon: Shahid Cantu MD Oil Furnace Installer(s): Howie Angeles MD, R5 | | Karthik [...] 03/02/2015 08:25:39DT: 03/02/2015 09:15:57Job #: | | [id number] | | | |Dr. Chris Cantu was present and scrubbed for the entirety of the case. | | | | | | | |Karthik Gonzalez MD | | | |Pursuant to federal Medicare and Medicaid regulations I was present for the entire procedur e. | | | | | | | |Shahid Cantu MD | |Writer Producer | |Trauma, Critical Care & Acute Care Surgery | | | | | | | |Shahid Cantu MD | |TBK/MODL | | | | | | /[id number] | + ---+ CAPILLARY BLOOD GLUCOSE (NO [...] AMES | [address] | [place], [place] | | | JUSTINE DAWN OF CARE | [address] | [address] | | | TESTS | | | [...] [facility] | [address] | [place], [place] | | | L[place] POINT OF CARE | [address] | [address] | | | TESTS | | | [...] + | [facility] | [address] [facility] [address] | [place], [place] | | | [place] POINT OF CARE | [address] | [address] | | | TESTS | | | [...] AMES | [address] | [place], [place] | | | JUSTINE DAWN OF CARE | [address] | [address] | | | TESTS | | | [...] [facility] | [address] | [place], [place] | | | [place] POINT OF CARE | [address] | [address] | | | TESTS | | | [...] [facility] | [address] | [place], [place] | | | L[place] POINT OF CARE | [address] | [address] | | | TESTS | | | [...] | + + + + + | [facility] | [address] | [place] [address] | | | SERVICES, CORE | PARK [...] | | | LABORATORY | | | [place] | | | SERVICES, | | | [...] + + + + | [facility] | [address] | [place] [address] | | | SERVICES, LYDIA | CLARENCE [...] [facility] | [address] | [place], [place] | | | JUSTINE DAWN OF JAKY | [facility] | [address] | | | TESTS | | | [...] [place] | [address] | [place], [place] | | | JUSTINE DAWN OF CARE | [address] | [address] | | | TESTS | | | [...] AMES | [address] | [place], [place] | | | JUSTINE DAWN OF JAKY | [facility] | [address] | | | TESTS | | | [...] [facility] | [address] | [place], [place] | | | JUSTINE DAWN OF CARE | [facility] | [address] | | | TESTS | | | [...] (H) | 60 - 99 mg/dL | [facility] - | | | GLUCOSE, | | [...] [facility] | [address] | [place], [place] | | | JUSTINE DAWN OF CARE | [address] | [address] | | | TESTS | | | [...] + + + + + | [facility] | [address] | [place] [address] | | | LYDIA RANGEL | CLARENCE [...] (H) | 60 - 99 mg/dL | [facility] - | | | GLUCOSE, | | [...] + + + | [facility] | [address] | [place], [place] | | | JUSTINE DAWN OF [facility] | [address] | [address] | | | TESTS | | | [...]
--- OUTSIDE RECORDS SUMMARY | ~2019-05-10 | XMS | Encounter Summary ---
Demographics + + + | Address | [address] | | | [place] [address] | + + + | Home Phone [...] [place], [place] | | | | | [address] | | + + + + + | Ellie Vang | ECON | Unknown | | + + + + + Care Team Providers + +------+ + | Care Straw Hat Presser Name | Role | Phone | + +------+ + | Fadi Goodrich DO | PCP | | + +------+ + Encounter Details +--------+ + + + + | Date | Type | Department | Care Team | Description | +--------+ + + + + | 10/27/ | Abstract | Digestive Health | Clinic, Surgery | | | 2018 | | [facility] [address] | | | | [address] | | | | | | Mailcode: [facility] | | | | | | [facility] and | | | | | | [facility] [address] | | | | | | [place], [place] | | | | | | [address] | | | | | | [phone] | | | +--------+ + + + [...] [address] | | | | | | [place], [place] | | | | | | [address] | | | | | | [phone] | | | | | | | | +--------+ + + + + | 06/27/ | Telephone-S | Pre-operative | | | | 2019 | cheduled | Medicine | | | +--------+ + + + + | 06/30/ | Office | Cardiology | Randell Franks, | | | 2018 | Visit | | [address] | | | | | | [place] [address], [place] | | | | | | [address] | | | | | | [phone] | | | | | | | | +--------+ + + + + | 07/08/ | Procedure | Surgery | | | | 2018 | Pass | | | | +--------+ + + + + documented as of this encounter Visit Diagnoses Not on filedocumented in this encounter"
--- OUTSIDE RECORDS SUMMARY | ~2019-05-10 | XMS | Encounter Summary ---
Demographics + + + | Address | [address] | | | [place] [address] | + + + | Home Phone [...] + | Katalina Padilla | ECON | [address] | | | | | [place], [place] | | | | | [address] | | + + + + + | Ellie Vang | ECON | Unknown | | + + + + + Care Team Providers + +------+ + | Care Fishing Rod Marker Name | Role | Phone | + +------+ + | Fadi Goodrich DO | PCP | | + +------+ + Encounter Details +--------+ + + + + | Date | Type | Department | Care Team | Description | +--------+ + + + + | 03/28/ | Abstract | Cardiology | Randell Franks, | | | 2014 | | Preventive at [facility] | MD [address] | | | | | [address] | Ave [place], [place] | | | | | Mailcode: [facility] | [address] | | | | | [facility] | [phone] | | | | | and Healing, | | | | | | [address] | | | | | | [place], [place] | | | | | | [address] | | | | | | [phone] | | | +--------+ + + + [...] [address] | | | | | | [place], [place] | | | | | | [address] | | | | | | [phone] | | | | | | | [...] | | | | | [address] [place], [place] | | | | | | [address] | | | | | | [phone] | | | | | | | | +--------+ + + + + | 07/08/ | Procedure | Surgery | | | | 2019 | Pass | | | | +--------+ + + + + documented as of this encounter Visit Diagnoses Not on filedocumented in this encounter"
--- OUTSIDE RECORDS SUMMARY | ~2019-05-10 | XMS | Encounter Summary ---
Demographics + + + | Address | [address] | | | [place] [address] | + + + | Home Phone [...] | [facility] | | | and Jeffana | + + + | Organization | [facility] | | | and Jeffana [...] Providers + +------+ + | Care Registered Phlebotomist Part Time Name | Role | Phone | + +------+ + | Kenyatta Cardenas MD | PCP | | + +------+ + Reason for Visit +--------+ + | Reason | Comments | +--------+ + | Other | liver | +--------+ + Evaluate & Treat (Routine) +--------+--------+ + + + + | Status | Reason | Specialty | Diagnoses / | Referred By | Referred To | | | | | Procedures | Contact | Contact | +--------+--------+ + + + + | Closed | | Gastroenterol | Diagnoses | [place], | [place], | | | | ogy | Other | Kenyatta Hardyen, | Jyoti, | | | | | specified | MD [address] | FIELD OPERATOR [address] | | | | | diseases of | [address] | [place], [place] | | | | | liver | [place], | [address] | | | | | Procedures | [place] | [place] | | | | | office visit | [address] | [address] Phone: | | | | | | Phone: | [phone] | | | | | | [phone] | Fax: | | | | | | Fax: | [phone] | | | | | | [phone] | | +--------+--------+ + + + + Encounter Details +--------+---------+ + + + | Date | Type | Department | Care Team | Description | +--------+---------+ + + + | 02/15/ | Office | [facility] [place] | [facility], | Fatty infiltration | | 2019 | Visit | GASTROENTEROLOGY | SELINA Montes [address] | of liver (Primary | | | | [address] [place] | [place], [place] [address] | Dx); History of | | | | [address] [place], [place] | [place], [place] | Frandy-en-Y gastric | | | | [address] | [address] | bypass; Itching; | | | | [phone] | | Diarrhea, | | | | | | unspecified type | +--------+---------+ + + + Social History [...] + + + | Blood Pressure | 140/86 | 02/15/2019921 PDT | + + + + | Pulse | 92 | 02/15/2019921 PDT | + + + + | Temperature | 36.7 C (98 F) | 02/15/2019921 PDT | + + + + | Respiratory Rate | 18 | 02/15/2019921 PDT | + + + + | Oxygen Saturation | 95% | 02/15/2019921 PDT | + + + + | Inhaled Oxygen | - | - | | Concentration | | | + + + + | Weight | 123.9 kg (273 lb 2.4 | 02/15/2019921 PDT | | | oz) | | + + + + | Height | 147.3 cm (4' 10") | 02/15/2019921 PDT | + + + + | Body Mass Index | 57.09 | 02/15/2019 0922 PDT | + + + + documented in this encounter Progress Notes Jyoti Kim ARNP - 02/15/2019 1000 PDTFormatting of this note might be different f rom the original. PATIENT NAME: Elzbieta Cristina : 1975: AGE: 43 y.o. REFERRED BY: Kenyatta Cardenas PRIMARY CARE: Kenyatta Cardenas MD Subjective: CHIEF COMPLAINT: Elzbieta Cristina is a 43 y.o. female referred by Kenyatta Cardenas MD for evaluation and treatment of abnormal imaging of liver. HISTORY OF PRESENT ILLNESS: She has history of Bertha en Y gastric bypass done 03/03/2018 at [facility]. She reports that approximately 3 months ago, she developed abdominal pain. Further evaluat ion with a CT scan showed an incidental finding of a nodular contour to her liver. CT also found anterior abdominal wall hernias containing small bowel and colon without evidence of a ssociated obstruction or strangulation. It is noted that there was a limitation of evaluati on secondary to patient body habitus. Since his incidental finding of the abnormal contour of the liver, patient also had a Fiber Sure blood test which showed F1 fibrosis. Denies ascites, jaundice, hematemesis, peripheral edema, sleep changes, or confusion. Patient notes that for the past month or so, she has had increased diarrhea, nausea and vom iting, hot, and itchy. Prior to this she was feeling well. She is scheduled to see her [facility] surgeons within the next 2 weeks. She is also currently being followed by endocrinology. MEDICAL, SURGICAL, AND PERSONAL HISTORY: BP 140/86 | Pulse 92 | Temp 36.7 C (98 F) (Temporal) | Resp 18 | Ht 1.473 m (4' 10" ) | Wt 123.9 kg (273 lb 2.4 oz) | SpO2 95% | BMI 57.09 kg/m Allergies Allergen Reactions Diphenhydramine Anaphylaxis, Hives and Swelling Amoxicillin Hives and Rash Bromocriptine Other (See Comments) and Unknown Blood clot and stroke Blood clots Blood clots Penicillin G Hives Past Medical History: Diagnosis Date Abdominal pain 02/07/2014 Acute on chronic congestive heart failure with right ventricular diastolic dysfunction (HCC) 10/26/2015 Overview: [facility] Last Assessment & Plan: Patient with morbid obesity (BMI 100 at admiss n), history of right heart failure in [...] o besity Pickwickian syndrome Recent admission to [facility] for 100lb weight gain- DC on diuresis [...] w Diabetes mellitus type 2 without retinopathy ([facility]) 04/14/2013 Diabetes mellitus with insulin therapy ([facility]) 12/27/2014 DM (diabetes mellitus) ([facility]) 05/09/2016 Overview: A1c 5.29 Aug 2014 Last [...] with morbid obesity, she is enrolled in [facility] bariatric program. She has lost approximately 50 [...] sinus tachycardia 04/26/2018 History of stroke 04/26/2018 Hyperlipidemia 02/02/2017 Hypertension 06/16/2013 Hyperuricemia 04/21/2016 Hypoalbuminemia 11/11/2015 Hypokalemia 04/21/2016 Hypothyroidism 08/28/2014 Last Assessment & Plan: TSH WNL 10/2015. She is on hollister thyroid as OP. -TSH WNL -continu e supplementation here Hypoventilation associated with obesity (HCC) 06/16/2013 Last Assessment & Plan: [facility] Bariatric Program, has lost 50lbs. STEFANO (iron deficiency anemia) 02/03/2019 Overview: Presumed due to menses. Venofer 200 qd x 30 October 2015 [facility] Last Assessment & P sharon: Hgb [...] 2x/wk since October 2015 Past Surgical History: Procedure Laterality Date ANKLE SURGERY Left APPENDECTOMY CHOLECYSTECTOMY DILATION AND CURETTAGE OF UTERUS GASTRIC BYPASS SURGERY 03/01/2018 HERNIA REPAIR SINUS SURGERY TONSILLECTOMY Family History Problem Relation Age of Onset Diabetes Mother Alcohol abuse Mother Hypertension Mother Obesity Mother Arthritis Mother Heart disease Father Alcohol abuse Father Hypertension Father Asthma Father Obesity Father Arthritis Father Heart disease Maternal Grandmother Lupus Sister Obesity Sister Asthma Brother Asthma Daughter Social History Socioeconomic History Marital status: Spouse name: Not on file Number of children: Not on file Years of education: Not on file Highest education level: Not on file Social Needs Financial resource strain: Not on file Food insecurity - worry: Not on file Food insecurity - inability: Not on file Transportation needs - medical: Not on file Transportation needs - non-medical: Not on file Occupational History Not on file Tobacco Use Smoking status: Never Smoker Smokeless tobacco: Never Used Substance and Sexual Activity Alcohol use: Not Currently Drug use: Not on file Sexual activity: Not on file Other Topics Concern Not on file Social History Narrative Not on file Review of Systems Constitutional: Positive for diaphoresis. Negative for fatigue, fever and unexpected weight change. HENT: Positive for rhinorrhea. Negative for congestion, hearing loss, mouth sores and troub le swallowing. Eyes: Negative for redness and visual disturbance. Respiratory: Negative for cough, choking, chest tightness, shortness of breath and wheezing . Cardiovascular: Positive for palpitations and leg swelling. Negative for chest pain. Gastrointestinal: Positive for abdominal pain, diarrhea, nausea and vomiting. Negative for abdominal distention, anal bleeding, blood in stool, constipation and rectal pain. Endocrine: Denies enlarged thyroid Genitourinary: Negative for dysuria, flank pain and frequency. Musculoskeletal: Positive for arthralgias and back pain. Negative for joint swelling. Skin: Negative for color change and rash. Neurological: Positive for weakness, numbness and headaches. Negative for seizures and sync ope. Hematological: Does not bruise/bleed easily. Denies anemia or enlarged lymph glands. Psychiatric/Behavioral: Positive for dysphoric mood. The patient is nervous/anxious. Objective: Physical Exam Constitutional: She is oriented to person, place, and time. She appears well-developed and well-nourished. No distress. Patient morbidly obese HENT: Head: Normocephalic and atraumatic. Eyes: No scleral icterus. Musculoskeletal: Normal range of motion. She exhibits no edema or deformity. Neurological: She is alert and oriented to person, place, and time. Skin: Skin is warm and dry. No rash noted. Psychiatric: She has a normal mood and affect. Her speech is normal and behavior is normal. Nursing note and vitals reviewed. Abstract on 02/03/2019 Component Date Value Ref Range Status Alpha 2-Macroglobulins, Qn 12/17/2018 284 Final Alanine, Plasma 12/17/2018 18 Final Aspartate 12/17/2018 22 Final Gamma Glutamyl Transferase 12/17/2018 15 Final Urea Nitrogen, Body fluid 12/17/2018 16 Final Platelet Count 12/17/2018 298 Final Prothrombin Result 12/17/2018 97 Final FibroMeter Prothrombin Index 12/17/2018 0.17 Final CirrhoMeter Patient Score 12/17/2018 0 Final FIBROSURE STAGE 12/17/2018 F1 Final InflaMeter Patient Score 12/17/2018 0.26 Final INFLAMETER CLASS: A0/A1 Vitamin B12 12/15/2018 >2,000 232 - 1,245 Final HOMOCYSTEINE, TOTAL (REF) 10/04/2018 8.53 4.44 - 13.56 Final PTT, External 10/04/2018 27 22.9 - 41.3 Final dRVVT 10/04/2018 1.12 0 - 1.21 Final PLT, External 12/14/2018 298 140 - 440 Final PROTEIN C FUNCTIONAL 10/04/2018 166 77 - 173 Final Result 10/04/2018 142 57 - 161 Final Protein S BETA 2 GLYCO 1 IGG 10/04/2018 <6 0 - 7 Final BETA 2 GLYCO 1 IGM 10/04/2018 <2.9 0 - 7 Final Result 10/04/2018 1.4 0 - 7 Final Component: B2 Glyco, IgA ANTITHROMBIN ACTIVITY 10/04/2018 108 Final Factor V Leiden 10/04/2018 Negative Final TSH, External 10/04/2018 1.68 0.27 - 4.2 Final Ferritin, External 10/04/2018 83.89 13 - 150 Final Magnesium, External 10/04/2018 1.5* 1.7 - 2.5 Final Hemoglobin A1c 10/04/2018 5.5 % Final Estimated Average Glucose 111 Vitamin B12 Bind Capacity 10/04/2018 1,057 232 - 1,245 Final INR, External 10/04/2018 0.9 Final PT, External 10/04/2018 12.3* 12.8 - 15.5 Final Vitamin D, 25-Hydroxy, External 10/04/2018 50 30 - 100 Final PROTEIN (CALC) 10/04/2018 6.8 6 - 8.3 Final Albumin 10/04/2018 3.3 2.8 - 5.7 g/dL Final ALPHA 1 %, BF 10/04/2018 0.25 0.1 - 0.32 Final ALPHA 2 %, BF 10/04/2018 0.91* 0.54 - 0.9 Final Result 10/04/2018 1.09 0.6 - 1.09 Final Component: BETA GAMMA, BF 10/04/2018 1.27 0.36 - 1.8 Final Assessment: 1. Fatty infiltration of liver Comprehensive Metabolic Panel 2. History of Frandy-en-Y gastric bypass Comprehensive Metabolic Panel 3. Itching Comprehensive Metabolic Panel 4. Diarrhea, unspecified type Comprehensive Metabolic Panel Plan: Labs show no evidence of synthetic dysfunction of the liver. In reviewing previous labs fr om as far back as 2015, there is no evidence of elevation of liver enzymes. Recent FibroSur e shows F1 fibrosis. Due to all of this, suspect abnormality seen on CT scan is related to fat infiltration of the liver. This is being treated following bariatric surgery and jerry nued weight loss. We will repeat liver enzymes today to determine if there is any elevation in transaminases or alkaline phosphatase. If there are abnormalities, will then further laboratory testing. She is to follow-up with surgeons at [facility] as planned. Patient is to call with any question or concerns. Any fevers, chills, chest pain, SOB or o ther serious symptoms patient is to call the office or go to ER CC: Kenyatta Cardenas MD This note was dictated using voice recognition software. Please contact me if there are an y questions regarding its content.Electronically signed by SELINA Dukes at 02/15 10:45 PDTdocumented in this encounter Plan of Treatment + +--------+ + + | Name | Priori | Associated Diagnoses | Order Schedule | | | ty | | | + +--------+ + + | Comprehensive Metabolic Panel | Routin | Fatty infiltration | Expected: | | | e | of liver History | 02/15/2019, Expires: | | | | of Frandy-en-Y gastric | 06/15/2019 | | | | bypass Itching | | | | | Diarrhea, | | | | | unspecified type | | + +--------+ + + documented as of this encounter Visit Diagnoses + + | Diagnosis | + + | Fatty infiltration of liver - Primary Other chronic nonalcoholic liver disease | + + | History of Frandy-en-Y gastric bypass Bariatric surgery status | + + | Itching Unspecified pruritic disorder | + + | Diarrhea, unspecified type | + + documented in this encounter
--- OUTSIDE RECORDS SUMMARY | ~2019-05-10 | XMS | Encounter Summary ---
Demographics + + + | Address | [address] | | | [place] [address] | + + + | Home Phone [...] + | Katalina Padilla | ECON | [address] | | | | | [place], [place] | | | | | [address] | | + + + + + | Ellie Vang | ECON | Unknown | | + + + + + Care Team Providers + +------+ + | Care Builder Operator Name | Role | Phone | [...] | | | 2013 | Event | [facility] | [address] | | | | | Admitting Desk | Lesly Gutiérrez [facility] | | | | | [facility] on the | [place] [address] | | | | | floor [address] | [phone] | | | | | [address] | | | | | | [place], [place] | | | | | | [address] | | | +--------+ + + + [...] Flannery | | | | | | [place], [place] | | | | | | [address] | | | | | | [phone] | | | | | | | [...] | | | | | [place], [place] | | | | | | [address] | | | | | | [phone] | | | | | | | [...] | | | | INTRAPROCEDURE PRN, Starting Tu | | 14 6:01 | | | [...] 6:44 | | | | | Starting Thu02/07/14 at 1528, | anesthes | PM PDT | | | | | Until Thu02/07/14 at 1848 | iology | | | [...] 6:44 | | | | | Starting Thu02/07/14 at 1733, | anesthes | PM PDT | | | | | Until Thu02/07/14 at 1848 | iology | | | [...] PDT | | | | | Starting e 02/07/14 at 1644, | | | | | | | Until e 02/07/14 at 1848 | | | | | | + +-------+ +---------+---+---+ +---+---+ | | | +---+---+ + +-------+ +--------+---+---+ | propofol INTRAPROCEDURE PRN, | Given | 02/08/20 | 200 mg | | | | Starting Thu02/07/14 at 1545, | | 14 3:45 | | | | | Until Thu02/07/14 at 1848 | | PM PDT | [...]
--- OUTSIDE RECORDS SUMMARY | ~2019-05-10 | XMS | Encounter Summary ---
Demographics + + + | Address | [address] | | | [place] [address] | + + + | Home Phone [...] + | Katalina Padilla | ECON | [address] | | | | | [place], [place] | | | | | [address] | | + + + + + | Ellie Vang | ECON | Unknown | | + + + + + Care Team Providers + +------+ + | Care Back Tufter Name | Role | Phone | + [...] | | | without | [place] | [address] | | | | | mention of | | Phone: | | | | | obstruction | | [phone] | | | | | or gangrene | | Fax: | | | | | | | [phone] | +--------+--------+ + + + + Encounter [...] | [facility] [address] | [address] | [place] | | | | [address] | [place], [place] | | | | | Mailcode: [id number] | [address] | | | | | [facility] | [phone] | | | | | [address] [place], [place] | | | | | | [address] | | | | | | [phone] | | | +--------+---------+ + + + [...] are still in, And wound is healed. [place] removed. Drainage is serous, very slight sanguinous. No eviden ce of deep subcutaneous infection. Abdominal wall currently intact. Drain site OK. Assessment/Plan: Satisfactory course following primary repair of incarcerated umbilical he rnia. Pt. Wants to obtain care, including drain removal and diabetic care in [place], so I have referred her to her [...] Flannery | | | | | | [facility] [place] | | | | | | [address] | | | | | | [phone] | | | | | | | [...] | | | | | [place], [place] | | | | | | [address] | | | | | | [phone] | | | | | | | [...] | Procedure Note | + + | Other, Faculty - 02/17/2013 8:51 AM PDT | + + RADIOLOGY (11/21/2012 12:00 AM PDT) + + + | Narrative | Performed At | + + + | | | | | | + + + + + | Procedure Note | + + | Yamil Faculty - 02/17/2013 8:51 AM PDT | [...]
--- OUTSIDE RECORDS SUMMARY | ~2019-05-10 | XMS | Encounter Summary ---
Demographics + + + | Address | [address] | | | [place] [address] | + + + | Home Phone [...] + | Katalina Padilla | ECON | [address] | | | | | [place], [place] | | | | | [address] | | + + + + + | Ellie Vang | ECON | Unknown | | + + + + + Care Team Providers + +------+ + | Care Drug And Alcohol Counsellor Name | Role | Phone | + [...] + + | 11/05/ | Hospital | [facility] 14C [address] | Joseph An | | | 2016 - | Encounter | [address] | MD Birgit [address] [facility] | | | | | 14C [facility] | [address] | | | 11/20/ | | [place], [place] | [place], [place] | | | 2016 | | [address] | [address] | | | | | [phone] | [phone] | | | | | | | | | | | | Ana, | | | | | | MD Briana [address] | | | | | | [address] | | | | | | Rd [place], [place] | | | | | | [address] | | | | | | [phone] | | | | | | | | | | | | Carmelina Tucker, | | | | | | JEFFREY-Aimee [address] | | | | | | [address] | | | | | | [place], [place] | | | | | | [address] | | | | | | [phone] | | | | | | | | | | | | Charley Lacey MD | | | | | | Jose Scott MD | | | | | | [address] | | | | | | [address] | | | | | | [place], [place] | | | | | | [address] | | | | | | [phone] | | | | | | | | | | | | Mannie Larkin MD | | | | | | [address] | | | | | | [address] [place], | | | | | | [place] [address] | | | | | | [phone] | | | | | | | | | | | | Tyrone Adrian MD | | | | | | [address] | | | | | | [address] [place], | | | | | | [place] [address] | | | | | | [phone] | | | | | | | [...] did want her to follow up with cnc operator programmer in [place]. She should continue working towards bariatric surgery wh ich will ultimately put less stress on her heart. -Continue torsemide 80mg BID -Increase potassium supplementation to KCl 40mg BID -Daily weights and strict 2g Na 2L fluid restricted diet -Close followup with Dr. Goodrich (appt on 11/25 at 11AM) -Needs followup with cardiology in [place] #Left lower extremity DVT #Presumed PE Asymmetric left lower extremity pain and swelling was suspicious for DVT and confirmed with duplex ultrasound. Did not pursue CTA as it was decided that it would not exchange operator . Started anticoagulation bridge with heparin gtt [...] mouth once daily. , Historical Med CALCIUM [id number] ORAL Take 2 tablets by mouth two [...] Cyndi Meier Cardiology [facility]estive [facility] Failure at [facility] [phone] Cardiology Additional Instructions/Orders: Diet Diabetic (Consistent [...] Good Yosef Segovia MD PGY-1 Internal Medicine [id number] INPATIENT FACULTY PROGRESS NOTE - GM 1 [...] (HCC) 15) Candidal intertrigo Tyrone Adrian MD [facility] 14C physician coding specialist Division of Hospital Medicine Department of Medicine [address] [place] [phone] [facility] DEPARTMENT: Hosp- [id number] Place of Service: Date of Service: 11/21/2015 CSN: [id number] Modifiers:GC Resident Involved: Yes Suggested CPT: 14368 Discharge Management < 30 minute documented in this encou nter Medications at Time of Discharge + + + +---------+--------+ + | Medication | Sig | Dispensed | Refills | Start | End Date | | | | | | Date | | + + + +---------+--------+ + | CALCIUM | Take 2 tablets by | | 0 | | | | [id number]-[id number]-GEN | mouth two times | | | [...] + documented as of this encounter Progress Tyrone Hahn MD - 11/20/2015 6:05 PM PDTINPATIENT FACULTY [...] (HCC) 15) Candidal intertrigo Tyrone Adrian MD [facility] 14C physician coding specialist Division of Hospital Medicine Department of Medicine [facility] [address] [place] [address] [facility] DEPARTMENT: Hosp- [id number] Place of Service: Date of Service: 11/20/2015 CSN: [id number] Modifiers:GC Resident Involved: Yes Suggested CPT: 44619 Subsequent Visit Exp Prob Foc/Mod Complexity 25 min olleen Diamond - 016 6:49 AM PDT PHYSICIAN LEGAL SECRETARY RECEPTIONIST STUDENT PROGRESS NOTE FOR EDUCATIONAL PURPOSES ONLY [...] of ovarian cysts or menses related. Contact ASSISTANT SPA MANAGER if TV-US i s ordered. - TV-US [...] - topiramate 200mg po bid JEFFREY Gee-S2 [facility] PA Student Feeding: <2L fluid, Diabetic diet, >2g na Analgesia: APAP, gabapentin, hydrocodone Thromboembolic prophylaxis: Heparin/warfarin Glycemic control: moderate ISS Mobility: Encourage walking and movement Discharge: Expect hospital stay another 2-3 days with PCP FU (Dr. Goodrich) on Saturday 11/25 @ 1 1 am. - Referral to Newspaper Photo Editor Code status: FULL Associated attestation - Yosef Segovia - 11/20/2015 7:50 PM PDTI have read the [facility] t note by PA student Dara and [...] PCP Yosef Segovia MD PGY-1 Internal Medicine [id number] Tyrone Adrian MD - 11/19/2015 11:51 AM [...] if the PO works) Tyrone Adrian MD [facility] 14C physician coding specialist Division of Hospital Medicine Department of Medicine [address] [place] [address] [facility] DEPARTMENT: Hosp- [id number] Place of Service: - Date of Service: 11/19/2015 CSN: [id number] Modifiers:GC Resident Involved: Yes Suggested CPT: 12272 Subsequent Visit Exp Prob Foc/Mod Complexity 25 min lshell Colleen - 016 6:24 AM PDT PHYSICIAN LEGAL SECRETARY RECEPTIONIST STUDENT PROGRESS NOTE FOR EDUCATIONAL PURPOSES ONLY [...] of ovarian cysts or menses related. Contact ASSISTANT SPA MANAGER if TV-US i s ordered. - TV-US [...] completed. Code status: FULL Associated attestation - Seneca, Yosef Pryor - 11/19/2015 7:38 PM PDTI have read [...] can. Yosef Segovia MD PGY-1 Internal Medicine [id number] Tyrone Adrian MD - 11/18/2015 2:01 PM [...] (HCC) 15) Candidal intertrigo Tyrone Adrian MD [facility] 14C physician coding specialist Division of Hospital Medicine Department of Medicine [facility] [address] [place] [address] [facility] DEPARTMENT: Hosp- [id number] Place of Service: - Date of Service: 11/18/2015 CSN: [id number] Modifiers:GC Resident Involved: Yes Suggested CPT: 30849 Subsequent Visit Exp Prob Foc/Mod Complexity 25 [...] plan. Yosef Segovia MD PGY-1 Internal Medicine [id number] signed by Yosef Segovia at 11/18/2015 11:52 [...] (HCC) 15) Candidal intertrigo Tyrone Adrian MD [facility] 14C physician coding specialist Division of Hospital Medicine Department of Medicine [facility] [address] [place] [address] [facility] DEPARTMENT: Hosp- [id number] Place of Service: - Date of Service: 11/17/2015 CSN: [id number] Modifiers:GC Resident Involved: Yes Suggested CPT: 05690 Subsequent Visit Exp Prob Foc/Mod Complexity 25 min lowersColleen - 016 6:40 AM PDT PHYSICIAN LEGAL SECRETARY RECEPTIONIST STUDENT PROGRESS NOTE FOR EDUCATIONAL PURPOSES ONLY [...] mg IV daily x 5 days (day 5) #Left sided pelvic pain, episodic Urinalysis unremarkable. [...] - topiramate 200mg po bid JEFFREY Gee-S2 [facility] PA Student Feeding: <2L fluid, Diabetic [...] can Yosef Segovia MD PGY-1 Internal Medicine [id number] Tyrone Adrian MD - 11/16/2015 4:59 PM [...] (HCC) 15) Candidal intertrigo Tyrone Adrian MD [facility] 14C physician coding specialist Division of Hospital Medicine Department of Medicine [facility] [address] [place] [phone] [facility] DEPARTMENT: Hosp- [id number] Place of Service: Date of Service: 11/16/2015 CSN: [id number] Modifiers:GC Resident Involved: Yes Suggested CPT: 89688 Subsequent Visit Exp Prob Foc/Mod Complexity 25 min olleen Diamond - 016 6:43 AM PDT PHYSICIAN LEGAL SECRETARY RECEPTIONIST STUDENT PROGRESS NOTE FOR EDUCATIONAL PURPOSES ONLY [...] tachy improved with WBC WNL 10.45 on 4/21. Afebril e. Likely associated with her diaphoresis [...] - topiramate 200mg po bid JEFFREY Gee-S2 [facility] PA Student Feeding: <2L fluid, Diabetic [...] assistance of Grisel Pearl. Patient lives i [facility] which is quite a distance to travel to and from [place]. We would ideally arran ge cardiac follow [...] (HCC) 15) Candidal intertrigo Tyrone Adrian MD [facility] 14C physician coding specialist Division of [facility] Medicine Department of Medicine [facility] [address] [place] [address] [facility] DEPARTMENT: Hosp- [id number] Place of Service: - Date of Service: 11/15/2015 CSN: [id number] Modifiers:GC Resident Involved: Yes Suggested CPT: 22419 Subsequent Visit Detailed/High complexity 35 min lColleen goff - 016 6:33 AM PDT PHYSICIAN LEGAL SECRETARY RECEPTIONIST STUDENT PROGRESS NOTE FOR EDUCATIONAL PURPOSES ONLY [...] last 8 days Intake 9571.5 ml Output 93270 ml Net since Admission -99329.5 ml -25.938 L = 57.0636 lbs Constitutional: [...] PT. Her sister is her caregi scooter. Prior to this weight gain, she [...] - topiramate 200mg po bid JEFFREY Gee-S2 [facility] PA Student Feeding: <2L fluid, Diabetic diet, >2g na Analgesia: APAP, gabapentin, hydrocodone Thromboembolic prophylaxis: Heparin/warfarin Glycemic control: moderate ISS Mobility: Encourage walking and movement Discharge: Expect hospital stay another 3-5 days with diuresis until more euvolemic and R h eart cath can be completed. Code status: FULL Associated attestation - SenecaYosef summers Barron - 11/15/2015 2:59 PM PDTI have read the excellen t [...] can Yosef Segovia MD PGY-1 Internal Medicine [id number] Tyrone Adrian MD - 11/14/2015 4:16 PM [...] (HCC) 15) Candidal intertrigo Tyrone Adrian MD [facility] 14C physician coding specialist Division of Hospital Medicine Department of Medicine [address] [place] [address] [facility] DEPARTMENT: Hosp- [id number] Place of Service: Date of Service: 11/14/2015 CSN: [id number] Modifiers:GC Resident Involved: Yes Suggested CPT: 91030 Subsequent Visit Exp Prob Foc/Mod Complexity 25 min Colleen Tello - 016 6:42 AM PDT PHYSICIAN LEGAL SECRETARY RECEPTIONIST STUDENT PROGRESS NOTE FOR EDUCATIONAL PURPOSES ONLY [...] - topiramate 200mg po bid JEFFREY Gee-S2 [facility] PA Student Feeding: <2L fluid, Diabetic diet, >2g na Analgesia: APAP, gabapentin, hydrocodone Thromboembolic prophylaxis: Heparin/warfarin Glycemic control: moderate ISS Mobility: Encourage walking and movement Discharge: Expect hospital stay another 3-5 days with diuresis until more euvolemic and R h eart cath can be completed. Code status: FULL Associated attestation - Yosef Segovia - 11/14/2015 5:02 PM PDTI have read the licha t [...] a day -Start IV iron 200mg (day 2/5) -Cardiology consulted, did not see any classic [...] outpatient Yosef Segovia MD PGY-1 Internal Medicine [id number] Tyrone Adrian MD - 11/13/2015 4:06 PM [...] (HCC) 15) Candidal intertrigo Tyrone Adrian MD [facility] 14C physician coding specialist Division of Hospital Medicine Department of Medicine [facility] [address] [place] [address] [facility] DEPARTMENT: Hosp- [id number] Place of Service: - Date of Service: 11/13/2015 CSN: [id number] Modifiers:GC Resident Involved: Yes Suggested CPT: 45982 Subsequent Visit Detailed/High complexity 35 min lfelixsColleen - 016 6:36 AM PDT PHYSICIAN LEGAL SECRETARY RECEPTIONIST STUDENT PROGRESS NOTE FOR EDUCATIONAL PURPOSES ONLY [...] - topiramate 200mg po bid JEFFREY Gee-S2 [facility] PA Student Feeding: <2L fluid, Diabetic [...] VTE. Yosef Segovia MD PGY-1 Internal Medicine [id number] Tyrone Adrian MD - 11/12/2015 1:59 PM [...] 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, J COMMUNICATIONS PROFESSOR, at this point not definitive Plan: continue [...] ongoing 12) Candidal intertrigo Tyrone Adrian MD [facility] 14C physician coding specialist Division of Hospital Medicine Department of Medicine [facility] [address] [place] [address] [facility] DEPARTMENT: Hosp- [id number] Place of Service: [facility] [id number] Date of Service: 11/12/2015 CSN: [id number] Modifiers:GC Resident Involved: Yes Suggested CPT: 32659 Subsequent Visit Detailed/High complexity 35 min lColleen goff - 016 6:31 AM PDT PHYSICIAN LEGAL SECRETARY RECEPTIONIST STUDENT PROGRESS NOTE FOR EDUCATIONAL PURPOSES ONLY INPATIENT PROGRESS NOTE PATIENT INFORMATION Patient Name: Elzbieta Cristina Date of : 1975 Date of Admission: 11/06/2015 PCP: Fadi Goodrich DO Room/Bed: [facility]/08/08 Attending Provider: Mannie Larkin MD Encounter Information [...] - topiramate 200mg po bid JEFFREY Gee-S2 [facility] PA Student Feeding: <2L fluid, Diabetic [...] read the ceferinoen t note by JEFFREY student Dara and [...] disease. Yosef Segovia MD PGY-1 Internal Medicine [id number] Mannie Larkin MD - 11/11/2015 9:19 PM [...] diuresis then RHC Mannie Larkin MD Clinical Medical Artist, Internal Medicine Pager [phone] amColleen goff - 10/25 6:40 AM PDT PHYSICIAN LEGAL SECRETARY RECEPTIONIST STUDENT PROGRESS NOTE FOR EDUCATIONAL PURPOSES ONLY [...] - topiramate 200mg po bid JEFFREY Gee-S2 [facility] PA Student Feeding: <2L fluid, Diabetic diet, >2g na Analgesia: APAP, gabapentin, hydrocodone Thromboembolic prophylaxis: Heparin/warfarin Glycemic control: moderate ISS Mobility: Encourage walking and movement Discharge: Expect hospital stay another 5-7 days with diuresis until more euvolemic and R h eart cath can be completed. Code status: FULL Associated attestation - Juliette, Yosef Barron - 11/11/2015 3:31 PM PDThave read the [...] pain Yosef Segovia MD PGY-1 Internal Medicine [id number] Maria Eugenia Leiva RCP - 11/11/2015 6:39 AM PDTOvernight oximetry performed on RA. Oximetry d ownloaded. uKat keller MD - 11/10/2015 4:10 PM PDTGENERAL MEDICINE [...] well, getting ON sleep study by RT- s luis felipe about RHC when euvolemic. Assessment and Plan: [...] another 5-7 days Mannie Larkin MD Clinical Medical Artist, Internal Medicine Pager [phone] osef Segovia T - 7:24 AM PDT General Internal [...] plan. 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 In terms of AMARA - does not tolerate CPAP historically. Likely CPAP will be ve ry important for her going forward. Will try overnight oximetry here to assess severity. Discharge planning:Anticipate several days in house. I spent >35 min of which >50% was spent in counseling and coordination of care. Briana Perez MD [facility] Division of Hospital Medicine Grisel Mcghee [...] Date: 11/09/2015 Present for Conversation: Grisel Pearl NPElzbieta Surrogate Decision Maker Primary Surrogate Decision Maker Katalina Padilla [facility] [phone] Advanced Directives Existence of Advanced Directive Reviewed: No- Has Interest (11/09/15 1022) Advanced Directives Reviewed Comments: I gave a copy of advance directives (11/09/15 1022) KRISHNA Huertas NP [facility] 14C [address] [place] [phone] lowersColleen - 6:41 AM PDT PHYSICIAN LEGAL SECRETARY RECEPTIONIST STUDENT PROGRESS NOTE FOR EDUCATIONAL PURPOSES ONLY [...] of acute blood loss and anemia of sales force developer ela dz and thalassemia is less likely. [...] 11/09/2015 6:37 PM PDTI have read the excellen t note written by PA student Colleen [...] AM Yosef Segovia MD PGY-1 Internal Medicine [id number] Briana Perez MD - 11/08/2015 2:01 PM [...] and coordination of care. Briana Perez MD [facility] Division of Hospital Medicine ara Colleen - 11/08/2015 6:26 AM PDT PHYSICIAN LEGAL SECRETARY RECEPTIONIST STUDENT PROGRESS NOTE FOR EDUCATIONAL PURPOSES ONLY [...] po bid (topamax, nerve pain) JEFFREY Gee-S2 [facility] PA Student Feeding: <2L fluid, Diabetic [...] Hair Md, MSc Internal Medicine PGY2 Pager [phone] Kwadwo Freire - 11/07/2015 2:05 PM PDTTransthoracic [...] heart failure an d PHTN from untreated MAARA or obesity hypoventilation syndrome. UA is negative [...] plan. Yosef Segovia MD PGY-1 Internal Medicine [id number] lfelixsColleen - 016 8:43 AM PDT PHYSICIAN LEGAL SECRETARY RECEPTIONIST STUDENT PROGRESS NOTE FOR EDUCATIONAL PURPOSES ONLY [...] perfusion. - consider US to evaluate liver (RAVW-ceu-vkvbrucuu fatty liver dz) and look for ascites. [...] and movement Code status: [facility] Plan of Treatment +--------+ + + + + | Date | Type | Specialty | Care Team | Description | +--------+ + + + + | 05/13/ | Office | Plastic Surgery | Archie Ybarra MD | | | 2018 | Visit | | [address] | | | | | | [place], [place] | | | | | | [address] | | | | | | [phone] | | | | | | | [...] | | | | | [address] [place], [place] | | | | | | [address] | | | | | | [phone] | | | | | | | [...] | + +--------+ + + + | MADAY CEDILLO ONLY | Urgent | 11/16/2015 | | [...] [facility] | [address] | [place], [place] | | | [place]INT OF CARE | [address] | [address] | | | TESTS | | | [...] | + + + + + | [facility] | [address] | [place] [address] | | | SERVICES, LYDIA | LESLY [...] [facility] | [address] | [place] [address] | | | SERVICES, CORE | PARK [...] | | | LABORATORY | | | TRISTANIAN | | | SERVICES, | | | [...] the MDRD equation recommended by the | [facility] | | National Kidney Disease Education Program. [...] | + + + + + | [facility] | [address] | [place] [address] | | | CLAIRE, LYDIA | LESLY [...] (H) | 60 - 99 mg/dL | [facility] - | | | [...] [place] | [address] | [place], [place] | | | JUSTINE [place]WN OF JAKY | [facility] | [address] | | | TESTS | | | [...] AMES | [address] | [place], [place] | | | [place] POINT OF CARE | [address] | [address] | | | TESTS | | | [...] MARQU[facility] | [address] | [place], [place] | | | JUSTINE DAWN OF CARE | [facility] | [address] | | | TESTS | | | [...] [place] | [address] | [place], [place] | | | [place] OF [place] | [address] | [address] | | | TESTS | | | [...] AMES | [address] | [place], [place] | | | JUSTINE DAWN OF JAKY | [address] | [address] | | | TESTS | | | [...] | + + + + + | [facility] | [address] | [place] [address] | | | LYDIA RANGEL | LESLY [...] | + + + + + | [facility] | [address] | [place] [address] | | | SERVICES, CORE | LESLY [...] | + + + + + | [facility] | [address] | [place] [address] | | | SERVICES, CORE | PARK [...] | | | LABORATORY | | | TRISTANIAN | | | SERVICES, | | | [...] + + + + | [facility] | [address] | [place] [address] | | | SERVICES, CORE | LESLY [...] MAR[facility] | [address] | [place], [place] | | | JUST[place]WN OF CARE | [address] | [address] | | | TESTS | | | [...] + | NKECHI AMES | [address] | [place], [place] | | | JUSTINE DAWN OF [facility] | [address] | [address] | | | TESTS | | | [...] | + + + + + | [facility] | [address] | [place] [address] | | | SERVICES, CORE | PARK [...] + + + + | [facility] | [address] [facility] | [place] [address] | | | SERVICES, CORE | LESLY [...] | | | LABORATORY | | | TRISTANIAN | | | SERVICES, | | | [...] the MDRD equation recommended by the | [place] | | National Kidney Disease Education Program. [...] | + + + + + | [facility] | [address] | [place] [address] | | | SERVICES, CORE | LESLY [...] (H) | 60 - 99 mg/dL | [facility] - | | | [...] + + + | N[facility]CHI AMES | [address] | [place], [place] | | | [place] OF [facility] | [address] | [address] | | | TESTS | | | [...] MARQUAM | [address] | [place], [place] | | | JUSTINE DAWN OF JAKY | [address] | [address] | | | TESTS | | | [...] - [facility] | [address] | [place], [place] | | | [place]INT OF CARE | [address] | [address] | | | TESTS | | | [...] (H) | 60 - 99 mg/dL | [facility] - | | | [...] AMES | [address] | [place], [place] | | | [place] OF [facility] | [address] | [address] | | | TESTS | | | [...] [facility] | [address] | [place] [address] | | | SERVICES, CORE | [address] | | | + + + + + MAGNESIUM, PLASMA (11/18/2015 2:25 PM PDT) + +-------+ + + + | Component | Value | Ref Range | Performed | Pathologist | | | | | At | Signature | + +-------+ + + + | MAGNESIUM,P | 2.2 | 1.8 - 2.5 mg/dL | [facility] | | | LASMA | | [...] | + + + + + | [facility] | [address] | [place] [address] | | | SERVICES, CORE | LESLY [...] (H) | 60 - 99 mg/dL | [facility] - | | | [...] AMES | [address] | [place], [place] | | | [place] POINT OF CARE | [address] | [address] | | | TESTS | | | [...] MARQUAM | [address] | [place], [place] | | | JUSTINE DAWN OF CARE | [facility] | [address] | | | TESTS | | | [...] | + + + + + | [facility] | [address] [facility] | [place] [address] | | | SERVICES, CORE | PARK [...] | + + + + + | [facility] | [address] | [place] [address] | | | SERVICES, CORE | PARK [...] | + + + + + | [facility] | [address] | [place] [address] | | | SERVICES, CORE | LESLY [...] | | | LABORATORY | | | TRISTANIAN | | | SERVICES, | | | [...] | + + + + + | [facility] | [address] | [place] [address] | | | SERVICES, CORE | LESLY [...] (H) | 60 - 99 mg/dL | [facility] - | | | [...] AMES | [address] | [place], [place] | | | JUSTINE DAWN OF JAKY | [address] | [address] | | | TESTS | | | [...] MAR[facility] | [address] | [place], [place] | | | [place] POINT OF CARE | [address] | [address] | | | TESTS | | | [...] Y[facility] | [address] | [place], [place] | | | JUSTINE DAWN OF CARE | [address] | [address] | | | TESTS | | | [...] (H) | 60 - 99 mg/dL | [facility] - | | | [...] AMES | [address] | [place], [place] | | | JUSTINE DAWN OF JAKY | [address] | [address] | | | TESTS | | | [...] | + + + + + | [facility] | [address] | [place] [address] | | | SERVICES, CORE | LESLY [...] + + + + | [facility] | [address] | [place] [address] | | | SERVICES, [facility] | [address] | | | + [...] [facility] | [address] | [place] [address] | | | SERVICES, CORE | PARK [...] | | | LABORATORY | | | TRISTANIAN | | | SERVICES, | | | [...] the MDRD equation recommended by the | [facility] | | National Kidney Disease Education [...] | + + + + + | [facility] | [address] | [place] [address] | | | CLAIRE, LYDIA | [address] | | | + + + + + UA MANUELAROSALVA ONLY (11/16/2015 10:31 PM PDT) + + + [...] + + + | [facility] | [address] [address] | [place] [address] | | | SERVICES, CORE | PARK [...] | + + + + + | [facility] | [address] | [place] [address] | | | SERVICES, CORE | LESLY [...] (H) | 60 - 99 mg/dL | [facility] - | | | [...] AMES | [address] | [place], [place] | | | [facility]ARE | [address] | [address] | | | TESTS | | | [...] MARQUAM | [address] | [place], [place] | | | JUSTINE [facility]WN [facility] CARE | [address] | [address] | | | TESTS | | | [...] + | NKE[facility]I AMES | [address] | [place], [place] | | | [facility] | [address] | [address] | | | TESTS | | | [...] | + + + + + | [facility] | [address] | [place] [address] | | | SERVICES, CORE | LESLY [...] AMES | [address] | [place], [place] | | | [facility] CARE | [address] | [address] | | | TESTS | | | [...] | + + + + + | [facility] | [address] [facility] | [place] [address] | | | SERVICES, CORE | LESLY [...] every AM Heparin, Either STD/LMW - | CLAIRE, CORE | | Therapeutic Ranges: Heparin, Unfractionated: [...] | + + + + + | [facility] | [address] | [place] [address] | | | SERVICES, CORE | PARK [...] | | | LABORATORY | | | TRISTANIAN | | | SERVICES, | | | [...] + + + + | [facility] | [address] | [place] [address] | | | CLAIRE, LYDIA | LESLY [...] [facility] | [address] | [place] [address] | | | LYDIA RANGEL | LESLY [...] (H) | 60 - 99 mg/dL | [facility] - | | | [...] [facility]U | [address] | [place], [place] | | | [facility] | [address] | [address] | | | TESTS | | | [...] + + + + | [facility] | [address] | [place] [address] | | | SERVICES, CORE | LESLY [...] MARQUAM | [address] | [place], [place] | | | [facility] | [address] | [address] | | | TESTS | | | [...] + + + + | [facility] | [address] | [place] [address] | | | SERVICES, CORE | LESLY [...] (H) | 60 - 99 mg/dL | [facility] - | | | [...] AMES | [address] | [place], [place] | | | [facility]ARE | [address] | [address] | | | TESTS | | | [...] KWAKU | [address] | [place] | | | [facility] | [address] | [address] | | | TESTS | | | [...] | + + + + + | [facility] | [address] | [place] [address] | | | SERVICES, CORE | LESLY [...] + + + + | [facility] | [address] | [place] [address] | | | LYDIA RANGEL | LESLY [...] | + + + + + | [facility] | [address] [facility] | [place] [address] | | | SERVICES, CORE | LESLY [...] | + + + + + | [facility] | [address] | [place] [address] | | | SERVICES, CORE | PARK [...] | | | LABORATORY | | | TRISTANIAN | | | SERVICES, | | | [...] + + + + | [facility] | [address] [facility] | [place] [address] | | | LYDIA RANGEL | LESLY [...] AMES | [address] | [place], [place] | | | [facility] | [address] | [address] | | | TESTS | | | [...] | + + + + + | [facility] | [address] | [place] [address] | | | SERVICES, CORE | PARK [...] (H) | 60 - 99 mg/dL | [facility] - | | | [...] AMES | [address] | [place], [place] | | | [facility] | [address] | [address] | | | TESTS | | | [...] MARQUAM | [address] | [place], [place] | | | [facility] [facility] | [address] | [address] | | | TESTS | | | [...] | + + + + + | [facility] | [address] | [place] [address] | | | SERVICES, CORE | LESLY [...] (H) | 60 - 99 mg/dL | [facility] - | | | [...] AMES | [address] | [place], [place] | | | [facility] | [address] | [address] | | | TESTS | | | [...] + + + + | [facility] | [address] [facility] | [place] [address] | | | SERVICES, CORE | LESLY [...] + + + + | [facility] | [address] | [place] [address] | | | LYDIA RANGEL | LESLY [...] [facility] | [address] | [place] [address] | | | SERVICES, CORE | PARK [...] | | | LABORATORY | | | TRISTANIAN | | | SERVICES, | | | [...] | + + + + + | [facility] | [address] [facility] | [place] [address] | | | CLAIRE, LYDIA | LESLY [...] [facility] | [address] | [place] | | | [facility] CARE | [facility] | [address] | | | TESTS | | | [...] AMES | [address] | [place], [place] | | | [facility] | [address] | [address] | | | TESTS | | | [...] MARQUAM | [address] | [place], [place] | | | [facility] CARE | [address] | [address] | | | TESTS | | | [...] - [facility] | [address] | [place], [place] | | | [facility] | [facility] | [address] | | | TESTS | | | [...] | + +---------+ + + + | JOSEPHI T CMNT | No Hemo | | [...] + + + + | [facility] | [address] | [place] [address] | | | SERVICES, LYDIA | LESLY [...] | + + + + + | [facility] | [address] | [place] [address] | | | LYDIA RANGEL | LESLY [...] | + + + + + | [facility] | [address] | [place] [address] | | | SERVICES, CORE | LESLY [...] | + + + + + | [facility] | [address] | [place] [address] | | | SERVICES, CORE | [address] | | | + + + + + MAGNESIUM, PLASMA (11/13/2015 5:44 AM PDT) + +-------+ + + + | Component | Value | Ref Range | Performed | Pathologist | | | | | At | Signature | + +-------+ + + + | MAGNESIUM,P | 2.3 | 1.8 - 2.5 mg/dL | NVORIN [...] + + + + | [facility] | [address] [facility] | [place] [address] | | | SERVICES, CORE | LESLY [...] | | | LABORATORY | | | TRISTANIAN | | | SERVICES, | | | [...] | + + + + + | [facility] | [address] | [place] [address] | | | SERVICES, CORE | [address] | | | + + + + + MAGNESIUM, PLASMA (11/12/2015 11:47 PM PDT) + +-------+ + + + | Component | Value | Ref Range | Performed | Pathologist | | | | | At | Signature | + +-------+ + + + | MAGNESIUM,P | 2.3 | 1.8 - 2.5 mg/dL | NVORIN [...] + + + + | [facility] | [address] | [place] [address] | | | SERVICES, CORE | LESLY [...] | | | LABORATORY | | | TRISTANIAN | | | SERVICES, | | | [...] | + + + + + | [facility] | [address] | [place] [address] | | | SERVICES, CORE | LESLY [...] (H) | 60 - 99 mg/dL | [facility] - | | | [...] AMES | [address] | [place], [place] | | | [facility]ARE | [address] | [address] | | | TESTS | | | [...] MARQUAM | [address] | [place] | | | [facility] | [address] | [address] | | | TESTS | | | [...] MARQUAM | [address] | [place] | | | [facility] CARE | [facility] | [address] | | | TESTS | | | [...] AMES | [address] | [place], [place] | | | [facility] [facility]ARE | [address] | [address] | | | TESTS | | | [...] | + + + + + | [facility] | [address] | [place] [address] | | | SERVICES, LYDIA | LESLY [...] | + + + + + | [facility] | [address] | [place] [address] | | | LYDIA RANGEL | LESLY [...] [facility] | [address] | [place] [address] | | | SERVICES, CORE | PARK [...] | | | LABORATORY | | | TRISTANIAN | | | SERVICES, | | | [...] the MDRD equation recommended by the | [facility] | | National Kidney Disease Education Program. [...] | + + + + + | [facility] | [address] | [place] [address] | | | CLAIRE, LYDIA | LESLY [...] [facility] | [address] | [place], [place] | | | [facility] | [address] | [address] | | | TESTS | | | [...] | + + + + + | [facility] | [address] | [place] [address] | | | SERVICES, CORE | [address] | | | + + + + + MADAY CEDILLO (11/11/2015 8:17 PM PDT) + + + [...] [facility] | [address] | [place] [address] | | | SERVICES, CORE | PARK [...] + + + + | [facility] | [address] | [place] [address] | | | SERVICES, CORE | PARK [...] | + + + + + | [facility] | [address] | [place] [address] | | | SERVICES, CORE | LESLY [...] (H) | 60 - 99 mg/dL | [facility] - | | | [...] + + + + + | N[facility] MAES | [address] | [place], [place] | | | [facility] | [address] | [address] | | | TESTS | | | [...] MAR[facility] | [address] | [place], [place] | | | [facility]ARE | [address] | [address] | | | TESTS | | | [...] + + + + | [facility] | [address] | [place] [address] | | | SERVICES, [facility] | [address] | | | + + + + + CAPILLARY BLOOD GLUCOSE (NO CHG), POC (11/11/2015 9:59 AM PDT) + +---------+ + + + | Component | Value | Ref Range | Performed | Pathologist | | | | | At | Signature | + +---------+ + + + | BLOOD | 141 (H) | 60 - 99 mg/dL | [facility] - | | | [...] AMES | [address] | [place], [place] | | | [facility] | [facility] | [address] | | | TESTS | | | [...] | + + + + + | [facility] | [address] | [place] [address] | | | SERVICES, CORE | LESLY [...] + + + + | [facility] | [address] | [place] [address] | | | SERVICES, CORE | LESLY [...] [facility] | [address] | [place] [address] | | | SERVICES, CORE | PARK [...] | | | LABORATORY | | | TRISTANIAN | | | SERVICES, | | | [...] | + + + + + | [employer] [facility] | [address] | [place] [address] | | | CLAIRE, CORE | LESLY [...] [facility] | [address] | [place] | | | [facility] CARE | [facility] | [address] | | | TESTS | | | [...] | + + + + + | [facility] | [address] | [place] [address] | | | SERVICES, CORE | LESLY [...] AMES | [address] | [place], [place] | | | [facility] CARE | [address] | [address] | | | TESTS | | | [...] MARQUAM | [address] | [place], [place] | | | [facility]ARE | [address] | [address] | | | TESTS | | | [...] | + + + + + | [facility] | [address] | [place] [address] | | | SERVICES, CORE | LESLY [...] (H) | 60 - 99 mg/dL | [facility] - | | | [...] AMES | [address] | [place], [place] | | | [facility] CARE | [address] | [address] | | | TESTS | | | [...] + + + + | [facility] | [address] | [place] [address] | | | SERVICES, CORE | LESLY [...] | + + + + + | [facility] | [address] | [place] [address] | | | SERVICES, CORE | LESLY [...] [facility] | [address] | [place] [address] | | | SERVICES, CORE | [address] [...] | | | LABORATORY | | | TRISTANIAN | | | SERVICES, | | | [...] the MDRD equation recommended by the | [facility] | | National Kidney Disease Education Program. Estimated GFR | LABORATORY | | Interpretive Information: <60 mL/min/1.73 sq m | CLAIRE, LYDIA | | Chronic Kidney Disease <15 mL/min/1.73 [...] | + + + + + | [facility] | [address] | [place] [address] | | | LYDIA RANGEL | LESLY [...] | + + + + + | [facility] | [address] | [place] [address] | | | SERVICES, CORE | LESLY [...] | + + + + + | [facility] | [address] | [place] [address] | | | SERVICES, CORE | LESLY [...] (H) | 60 - 99 mg/dL | [facility] - | | | [...] AMES | [address] | [place], [place] | | | [facility]ARE | [address] | [address] | | | TESTS | | | [...] [facility] | [address] | [place], [place] | | | [place], POINT OF CARE | [address] | [address] | | | TESTS | | | | + + + + + X-RAY PORTABLE CHEST PICC LINE CHECK (11/09/2015 3:12 PM PDT) + + + + + + | Component | Value | Ref Range | Performed | Pathologist | | | | | At | Signature | + + + + + + | XRAY | EXAM: [place] CHEST PICC LINE | | | | [...] Anasarca A41.9 Sepsis, due to unspecified organism ([facility]) I50.9 Heart | | | failure, unspecified ([facility]) I82.402 DVT (deep venous thrombosis), | | | left (HCC) PICC/Midline Insertion Procedure Note | | | Indications:Frequent lab draws and Administration IV fluids and meds | | | Procedure location: Unit:[facility] Room: 13 Providers: PICC Nurse | [...] | pause verifies correct patient, procedure, equipment, 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 Catheter lot number: [id number] with a length of | | | [...] [facility] | [address] | [place] | | | [facility] | [address] | [address] | | | TESTS | | | [...] | + + + + + | [facility] | [address] | [place] [address] | | | SERVICES, CORE | PARK [...] AMES | [address] | [place], [place] | | | [facility] | [facility] | [address] | | | TESTS | | | [...] every AM Heparin, Either STD/LMW - | CLAIRE, CORE | | Therapeutic Ranges: Heparin, Unfractionated: [...] | + + + + + | [facility] | [address] [facility] | [place] [address] | | | LYDIA RANGEL | LESLY [...] | + + + + + | [facility] | [address] [facility] | [place] [address] | | | SERVICES, CORE | PARK [...] | [facility] | [address] [facility] | [place] [address] | | | SERVICES, CORE | [address] [...] | | | LABORATORY | | | TRISTANIAN | | | SERVICES, | | | [...] the MDRD equation recommended by the | [facility] | | National Kidney Disease Education Program. [...] | + + + + + | [facility] | [address] | [place] [address] | | | LYDIA RANGEL | LESLY [...] (H) | 60 - 99 mg/dL | [facility] - | | | [...] | [facility] | [address] | [place] | | | [facility]ARE | [address] | [address] | | | TESTS | | | [...] AMES | [address] | [place], [place] | | | [facility] | [facility] | [address] | | | TESTS | | | [...] [facility] | [address] | [place] [address] | | | SERVICES, CORE | PARK [...] + + + + | [facility] | [address] | [place] [address] | | | SERVICES, CORE | LESLY [...] | + + + + + | [facility] | [address] | [place] [address] | | | LYDIA RANGEL | LESLY [...] [facility] | [address] | [place] | | | [facility] | [address] | [address] | | | TESTS | | | [...] (H) | 60 - 99 mg/dL | [facility] - | | | [...] AMES | [address] | [place], [place] | | | [facility] CARE | [address] | [address] | | | TESTS | | | [...] [facility] | [address] | [place], [place] | | | [facility] | [address] | [address] | | | TESTS | | | [...] [facility] | [address] | [place] [address] | | | SERVICES, CORE | LESLY [...] [facility] | [address] | [place] [address] | | | SERVICES, CORE | PARK [...] [facility] | [address] | [place] [address] | | | SERVICES, CORE | [address] [...] | + + + + + | [facility] | [address] | [place] [address] | | | LYDIA RANGEL | LESLY [...] [facility] | [address] | [place] [address] | | | SERVICES, CORE | [address] [...] | | | LABORATORY | | | TRISTANIAN | | | SERVICES, | | | [...] the MDRD equation recommended by the | [facility] | | National Kidney Disease Education Program. Estimated GFR | LABORATORY | | Interpretive Information: <60 mL/min/1.73 sq m | CLAIRE, LYDIA | | Chronic Kidney Disease <15 mL/min/1.73 [...] | + + + + + | [facility] | [address] | [place] [address] | | | LYDIA RANGEL | LESLY [...] + + + + | [facility] | [address] | [place] [address] | | | LYDIA RANGEL | LESLY [...] (H) | 60 - 99 mg/dL | [facility] - | | | [...] [facility] | [address] | [place], [place] | | | [facility] | [address] | [address] | | | TESTS | | | [...] + + + + | [facility] | [address] [facility] | [place] [address] | | | SERVICES, CORE | LESLY [...] [facility] | [address] | [place], [place] | | | [facility]ARE | [facility] | [address] | | | TESTS | | | [...] - [facility] | [address] | [place], [place] | | | [facility] [facility]ARE | [address] | [address] | | | TESTS | | | [...] DEPT OF | [address] | [place], [place] | | | CARDIOLOGY | [address] | [address] | | + + + + + [...] AMES | [address] | [place], [place] | | | [facility]ARE | [address] | [address] | | | TESTS | | | [...] | | | LABORATORY | | | TRISTANIAN | | | SERVICES, | | | [...] [facility] | [address] | [place] [address] | | | SERVICES, CORE | LESLY [...] [facility] | [address] | [place] [address] | | | SERVICES, CORE | PARK [...] + + + + | [facility] | [address] | [place] [address] | | | SERVICES, CORE | PARK [...] AMES | [address] | [place], [place] | | | [facility]ARE | [address] | [address] | | | TESTS | | | [...] [facility] | [address] | [place] [address] | | | SERVICES, CORE | PARK [...] Screen Positive, specimen sent for culture. | [facility] | | | LABORATORY | | | LYDIA RANGEL | + + + + + + + + | Performing | Address | City/State/Zipcode | Phone Number | | Organization | | | | + + + + + | [facility] | [address] | [place] [address] | | | CLAIRE, LYDIA | [address] | | | + + + + + MADAY CEDILLO ONLY (11/07/2015 8:21 AM PDT) + + + [...] | + + + + + | [facility] | [address] | [place] [address] | | | SERVICES, CORE | LESLY [...] [facility] | [address] | [place] [address] | | | SERVICES, LYDIA | [address] [...] | [facility] | [address] | [place], [place] | | | [facility]ARE | [address] | [address] | | | TESTS | | | [...] | + + + + + | [facility] | [address] | [place] [address] | | | SERVICES, CORE | LESLY [...] + + | [facility] | [address] | [place] [address] | | | SERVICES, CORE | PARK [...] [facility] | [address] | [place] [address] | | | SERVICES, CORE | PARK [...] | | | LABORATORY | | | TRISTANIAN | | | SERVICES, | | | [...] [facility] | [address] | [place] [address] | | | SERVICES, LYDIA | [address] [...] 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 | [place], [place] | | | [facility] [facility]ARE | [address] | [address] | | | TESTS | | | [...] | | | PO2 | | | MARQURIOS | | | | | [...] | | SAMPLE TYPE | | | [facility] | | | [...] [facility] | [address] | [place], [place] | | | [facility] CARE | [address] | [address] | | | TESTS | | | [...] | + + + + + | [employer] [facility] | [address] | [place] [address] | | | LYDIA RANGEL | LESLY [...] + | [facility] | [address] | [place], [place] | | | CARDIOLOGY | [address] | [address] | | + + + + + [...] [facility] | [address] | [place] [address] | | | LYDIA RANGEL | [address] [...] [facility] | [address] | [place] [address] | | | SERVICES, CORE | [address] [...] | | | LABORATORY | | | TRISTANIAN | | | SERVICES, | | | [...] + + + + | [facility] | [address] | [place] [address] | | | SERVICES, [facility] [place] | [address] | | | + [...] + | [facility] | [address] | [place] [address] | | | LYDIA RANGEL | [address] | | | + + + + + ED INFORMATION EXCHANGE (11/06/2015 1:26 PM PDT) + + + + + + | Component | Value | Ref Range | Performed | Pathologist | | | | | At | Signature | + + + + + + | [facility] | [id number] | | [facility] | | | | [id number] | | [facility]ICAL | | | | [...] | ---- 11/06/2015 | | | 13:25 [facility] | | | [id number]. Referral; Cellulitis 09/28/2015 15:39 HADLEY Akbar | [...] -Pain in left lower leg 09/13/2015 14:54 HALDEY Akbar | | | Hospital Emergency -Unspecified abdominal [...] | | | | | | -Other [facility] (current) | | | drug therapy | | | -Allergy status | | | to penicillin ED VISIT COUNT (1 YR.) Visits Location | | | ------ --------- 1 [facility] | | | [place] [facility] 10 | | | Total Note: Visits indicate total known visits. | | | | | | --- | | + + + + + + + + | Performing | Address | City/State/Zipcode | Phone Number | | Organization | | | | + + + + + | [facility] | [address], | [place], [place] | [phone] | | [employer] | [address] | [address] | | + + + + + [...] | | TIMES DAILY, First dose on Fanny | | AM PDT | | | [...] 4:09 | | | | | dose, 11/07/15 at 1630 | | PM PDT | [...] 65 mg | | | | | 8:37 | elementa | | | | [...] 4:14 | | | | | dose, [facility] 11/08/15 at 1430 | | PM [...] | | | 1 dose, 11/06/15 at 2230 | | PM PDT [...] First dose on Thu11/08/15 at | | PM PDT | | [...] | | | oral, ONCE, 1 dose, [facility] 11/08/15 | | PM PDT | [...] | | | ONCE, 1 dose, [facility] 11/08/15 at 1900 | | PM PDT [...] chloride IV (central | New Bag | 04/24/20 | 40 mEq | | | | [...] | | | | ONCE, 1 dose, [facility] 11/17/15 at 0915 | | AM PDT | | | | + +-------+ +--------+---+---+ +---+---+ | | | +---+---+ + +-------+ +--------+---+---+ | potassium chloride SR (K-DUR) | Given | 11/18/19 | 40 mEq | | | | tablet 40 mEq 40 mEq, oral, | | 16 6:03 | | | | | ONCE, 1 dose, [facility] 11/18/15 at 1745 | | PM PDT [...] | | | | ONCE, 1 dose, [facility] 11/12/15 at 1115 | | AM PDT [...] | | | | ONCE, 1 dose, 11/14/15 at 0845 | | AM PDT [...]
--- OUTSIDE RECORDS SUMMARY | ~2019-05-10 | XMS | Encounter Summary ---
Demographics + + + | Address | [address] | | | [place] [address] | + + + | Home Phone | | + + + | Preferred Language | Unknown | + + + | Marital Status | Single | + + + | Alevism Affiliation | NON | + + + [...] + | Katalina Padilla | ECON | [address] | | | | | [place], [place] | | | | | [address] | | + + + + + | Ellie Vang | ECON | Unknown | | + + + + + Care Team Providers + +------+ + | Care Engineering Inspection Assistant Name | Role | Phone | + +------+ + | Kenyatta Cardeans MD | PCP | | + +------+ [...] | | | | | | [place] [address] | | | +--------+ + + + [...] Flannery | | | | | | [place], [place] | | | | | | [address] | | | | | | [phone] | | | | | | | [...] | | | | | [place], [place] | | | | | | [address] | | | | | | [phone] | | | | | | | | +--------+ + + + + | 07/08/ | Procedure | Surgery | | | | 2019 | Pass | | | | +--------+ + + + + documented as of this encounter Visit Diagnoses Not on filedocumented in this encounter"
--- OUTSIDE RECORDS SUMMARY | ~2019-05-10 | XMS | Encounter Summary ---
Demographics + + + | Address | [address] | | | [place] [address] | + + + | Home Phone [...] [place], [place] | | | | | [address] | | + + + + + | Ellie Vang | ECON | Unknown | | + + + + + Care Team Providers + +------+ + | Care Founder Chairman And Chief Creative Officer Name | Role | Phone | [...] | | [facility] at [facility] [address] | [facility] [address] | | | | | [address] | Ave [place], [place] | | | | | Mailcode: [place] | [address] | | | | | for [facility] and | [phone] | | | | | [facility] | | | | | | [place], [place] | | | | | | [address] | | | | | | | [...] | | 2019 | Visit | | [address] | | | | | | [place], [place] | | | | | | [address] | | | | | | [phone] | | | | | | | [...] | | | | | [place], [place] | | | | | | [address] | | | | | | [phone] | | | | | | | | +--------+ + + + + | 07/08/ | Procedure | Surgery | | | | 2018 | Pass | | | | +--------+ + + + + documented as of this encounter Visit Diagnoses Not on filedocumented in this encounter"
--- OUTSIDE RECORDS SUMMARY | ~2019-05-10 | XMS | Encounter Summary ---
Demographics + + + | Address | [address] | | | [place] [address] | + + + | Home Phone [...] [place], [place] | | | | | [address] | | + + + + + | Ellie Vang | ECON | Unknown | | + + + + + Care Team Providers + +------+ + | Care Labor Economist Name | Role | Phone | + +------+ + | Fadi Goodrich DO | PCP | | + +------+ + Reason for Visit +--------+ + | Reason | Comments | +--------+ + | Hernia | Incarerated | +--------+ + AUTH/CERT +--------+--------+ + + [...] + + + + | 11/06/ | Hospital | [facility] [address] | Andie rBian MD | | | 2012 - | Encounter | [address] | [address] | | | | | [place], [place] | [address] | | | 11/12/ | | [address] | [place], [place] | | | 2012 | | [phone] | [address] | | | | | | [phone] | | | | | | | [...] + + + | Blood Pressure | 142/74 | 11/12/2012 8:13 AM | | | | | PDT | | + + + + + | Pulse | 94 | 11/12/2012 8:13 AM | | | | | PDT | | + + + + + | Temperature | 36.4 C (97.5 F) | 11/12/2012 8:13 AM | | | | | PDT | | + + + + + | Respiratory Rate | 16 | 11/12/2012 8:13 AM | | | | | PDT | | + + + + + | Oxygen Saturation | 95% | 11/12/2012 8:13 AM | | | | | PDT | | + + + + + | Inhaled Oxygen | - | - | | | Concentration | | | | + + + + + | Weight | 180.9 kg (398 lb | 11/11/2012 9:57 PM | | | | 14.4 oz) | PDT | | + + + + + | Height | 154.9 cm (5' 0.98") | 11/06/2012 1:35 PM | | | | | PDT | | + + + + + | Body Mass Index | 75.41 | 11/06/2012 1:35 PM | | | | | PDT | | + + + + + documented in this encounter Discharge Summaries Aminta Wilson Md - 11/10/2012 2:02 PM PDTFormatting of this note might be different fr om the original. INPATIENT PHYSICIAN DISCHARGE SUMMARY Author: AMINTA WILSON MD Attending Physician: Andie Brian MD PCP: Fadi Goodrich DO Admission Date: 11/06/2012 Discharge Date: 12 Nov 2012 Diagnoses Patient Active Problem List: Hernia Ms. Romero is a 37y/o female with history of an open appendectomy in 2010 an umbilical herni a repair. History of staph wound infection requiring incision and drainage and recurrent yuriy tral hernia. She was transferred from [facility] for surgical evaluation of possible incarcer ated ventral hernia. Increasing pain, vomiting and lack of bowel function. On 11/06 she was t aken to the OR for Exploratory Laparotomy and it was found that she had incarcerated small b owel within the hernia sac, a 5x5cm defect midline. Bowel was viable and pinked up after red uction and lysis of adhesions. Primary closure of the defect was performed with 1-0 ooped ma xon running suture. Panniculectomy was performed and a vanessa drain was left in place in the prefascial space. POD 1 had return of bowel function and was passing flatus. POD 2 the ruiz was removed. Advancement of her diet was slow and she was placed on clear liquids POD 3 an d was found to have a UTI and was placed on seven days of Cipro. POD 5 she was discharged ho in, tolerating a diabetic diet. Having bowel function. Pain well controlled on oral agents. She is to follow up in a week, she is going home with the drain in place until the drainage is less than 30ml for 24hours. Procedures 1. Open hernia repair Brief Hospital Course Ms. Romero is a 37y/o female with history of an open appendectomy in 2010 an umbilical herni a repair. History of staph wound infection requiring incision and drainage and recurrent yuriy tral hernia. She was transferred from [facility] for surgical evaluation of possible incarcer ated ventral hernia. Increasing pain, vomiting and lack of bowel function. On 11/06 she was t aken to the OR for Exploratory Laparotomy and it was found that she had incarcerated small b owel within the hernia sac, a 5x5cm defect midline. Bowel was viable and pinked up after red uction and lysis of adhesions. Primary closure of the defect was performed with 1-0 ooped ma xon running suture. Panniculectomy was performed and a vanessa drain was left in place in the prefascial space. POD 1 had return of bowel function and was passing flatus. POD 2 the ruiz was removed. Advancement of her diet was slow and she was placed on clear liquids POD 3 an d was found to have a UTI and was placed on seven days of Cipro. POD 5 she was discharged ho in, tolerating a diabetic diet. Having bowel function. Pain well controlled on oral agents. She is to follow up in a week, she is going home with the drain in place until the drainage is less than 30ml for 24hours. Medications: Discharge Medication List as of 11/12/2012 2:34 PM START taking these medications Details ciprofloxacin 500 mg Oral tablet Take 1 Tab by mouth two times daily for 5 days., Disp-10 T ab, R-0, Print Prescription lactobacillus rhamnosus, GG, Oral capsule Take 1 Cap by mouth once daily., Disp-30 Cap, R-0 , Print Prescription oxyCODONE, immediate release, 5 mg Oral tablet Take 4 Tabs by mouth every three hours as ne eded for severe pain., Disp-200 Tab, R-0, Print Prescription polyethylene glycol 17 gram/dose Oral Powder Take 17 g by mouth once daily., Disp-238 g, R- 0, Print Prescription senna-docusate 8.6-50 mg Oral tablet Take 1 Tab by mouth two times daily., Disp-60 Tab, R-3 , Print Prescription CONTINUE these medications which have NOT CHANGED Details ALPRAZolam XR 3 mg Oral tablet extended release 24 hr Take 3 mg by mouth once daily in the morning. , Historical Med ascorbic acid (VITAMIN C) 500 mg Oral tablet Take 500 mg by mouth once daily. , Historical Med ASPIRIN/ACETAMINOPHEN/JARON CARB (EXCEDRIN BACK & BODY ORAL) Take by mouth four times daily as needed. , Historical Med ferrous sulfate 325 mg (65 mg iron) Oral tablet Take 325 mg by mouth two times daily. , Hi storical Med FLUoxetine 40 mg Oral capsule Take 40 mg by mouth once daily. , Historical Med HUM INSULIN NPH/REG INSULIN HM (HUMULIN 70/30 SUBQ) Inject 50 cc under the skin (SUBC) once daily. , Historical Med metFORMIN 1,000 mg Oral tablet Take 1,000 mg by mouth once daily. , Historical Med OLANZAPINE (ZYPREXA ORAL) Take 30 mg by mouth once daily. , Historical Med piroxicam 20 mg Oral capsule Take 20 mg by mouth once daily. , Historical Med VIT/IRON FUMARATE/FA ( PLUS ORAL) Take by mouth. , Historical Med ranitidine 300 mg Oral tablet Take 300 mg by mouth once daily at bedtime. , Historical Med TORSEMIDE ORAL Take 40 mg by mouth two times daily. , Historical Med traZODone 150 mg Oral tablet Take 150 mg by mouth once daily at bedtime. , Historical Med STOP taking these medications clindamycin 300 mg Oral capsule Comments: Reason for Stopping: Diet Diabetic (Consistent Carbohydrate) Diabetic diet (Consistent Carbohydrate)- You should be careful to control your daily inta ke of carbohydrates and ensure that you are consuming the same amount of carbohydrates each day. Your health care provider will work with you to determine the appropriate amount of ca rbohydrates your body needs. Activity Lifting restrictions: Restrict the amount of lifting to 10 lbs to prevent injury and promo te healing. Other Discharge Orders and Instructions ACTIVITY Comments: HOW TO CONTACT ACUTE CARE SURGERY/ EMERGENCY GENERAL SURGERY: Call during business hours for general questions or concerns. There maybe a 24 hour response time. Concerns include: - signs and symptoms of infection: Increasing redness and tenderness around wounds or incis ion sites, thick cloudy wound drainage, fever 101.5 or greater, chills, --increased pain that is not relieved by pain medications --Persistent nausea or vomiting, or diarrhea --Swelling and/ or redness to an extremity Call 911 and Seek Emergency Care for: --Difficulty breathing or unusual shortness of breath--- --Excessive bleeding from operation site. HOLD PRESSURE to control bleeding. ACTIVITY: --NO DRIVING WHILE taking PAIN MEDICATIONS. Do not mix alcohol and pain medications --If you had an abdominal surgery: --You may wear abdominal binder for support when out of bed. --You had an abdominal surgery, No heavy lifting, nothing greater than 10lbs. For 4-6 weeks (a gallon of milk is approximately 8lbs.) Walking will be your primary source of exercise. It is very important that you walk at leas t three times a day. These can be short walks that you can gradually increase over time as y our strength improves. The majority of time should be spent out of bed. It is ok to take nap s if you are tired, but alternate napping with activity. SHOWERS are permitted, no soaking in water (baths, jacuzzi, swimming pools) NUTRITION: Drink 8 to 10 glasses of water a day. If you are on a fluid restriction, follow recommendat ions. If feeling nauseated, drink small amounts of fluid. Slowly increase as tolerated. Increase your fluid and food intake as you are able to tolerate. If you do not feel sick, e at a normal diet. If you are having nausea or vomiting that is keeping you from eating and drinking, Call [phone]. It is important to stay hydrated! If you are unable to drink any fluids due to vo miting, seek emergency care to prevent dehydration. Eat protein This helps with wound healing Increase your servings of peanut butter, beef, chicken, pork, fish, beans, eggs, soy, milk, cheese, yogurt Eat a high fiber diet Beans, whole grain/ breads, dried fruit (figs, apricots, and dates), berries, corn, broccol i, baked potatoes with skin, plums, pears, apples, greens and nuts. CONSTIPATION: It is very important to avoid constipation and straining while trying to have a bowel movem ent. It is common to have constipation after surgery and while taking narcotics (pain medica tions) however there are several medications you can use to both prevent and relieve constip ation. You can use stool softeners (Colace a.k.a. Docusate Sodium) or laxatives (Senokot -stool so ftener + laxative; Miralax - laxative drink; Dulcolax - suppository). Please work toward having a bowel movement every 1-2 days. It is also important to stay hyd rated as this will also help your bowel function. PAIN: It is expected that you will have pain after surgery, and it is important to manage this pa in so that you can increase your activity, sleep, and heal well from surgery. You are being sent home with a prescription for pain medication - this is to be taken NEEDED typically every 4-6 hours. You may also substitute/supplement the narcotic medication with Tylenol for milder pain. DO NOT TAKE MORE THAN 4,000MG OF TYLENOL IN 24 HOURS Examples of narcotics molly t DO NOT contain tylenol: Oxycodone, morphine, Dilaudid. DO NOT ADD TYLENOL if taking narcotic that contain Tylenol (acetaminophen) Example: Laurel, Lortab, Vicodin, hydrocodone/APAP, Percocet, Tylenol #3 PAIN MEDICATIONS are ONLY REFILLED during CLINIC APPOINTMENTS. Please call [phone] to schedule an appointment. Your Follow-Up Plan Follow up with ROBIN MEJIA in 2 weeks. Contact information: [address] [facility] [address] Vitals on discharge: Ht 154.9 cm (5' 0.98")( < 3 %ile), Wt 180.94 kg (398 lbs 14.4 oz)( < 3 %ile), BP 142/74, Pulse 94, Temperature 36.4 C (97.5 F), RR 16, SpO2 95%, BMI 75.41 kg/ (m^2). Outstanding labs/studies: None Discharging Physician: AMINTA WILSON MD Attending Physician: Andie Brian MD documented in this enc ounter Medications at Time of Discharge + + + +---------+ + + | Medication | Sig | Dispensed | Refills | Start | End Date | | | | | | Date | | + + + +---------+ + + | ciprofloxacin 500 | Take 1 Tab by mouth | 10 Tab | 0 | 11/13/19 | | | mg Oral tablet | two times daily for | | | 13 | 3 | | | 5 days. | | | | | + + + +---------+ + + documented as of this encounter Progress Notes Kaleb Walker NP - 11/12/2012 6:13 AM PDTFormatting of this note might be different f rom the original. [facility] DEPARTMENT OF SURGERY EMERGENCY GENERAL SURGERY Division of Trauma and Critical Care Attending Physician: Andie Brian MD Progress Note Note Date: 11/12/2012 Admission Date: 11/06/2012 DYLAN ROMERO, Hospital Day #6 INTERVAL HISTORY: Progressing tolerating diet with pain controlled. Stable for discharge. W ill continue with drains 2 weeks and RTC for evaluation and removal SUBJECTIVE REVIEW OF SYSTEMS: Complains of: na Pain well controlled Flatus: YES Tolerating diet: Yes Nausea/Vomiting: None Bowel movement: YES; When: This morning Progressing with Physical Therapy YES The remainder of the complete review of system was negative. OBJECTIVE: MEDICATION- Reviewed I&O- drains LAB AND CULTURES: All recent labs and cultures have been reviewed. IMAGING STUDIES: Recent imaging studies have been reviewed PHYSICAL EXAM: LAST VITALS: BP 142/74 | Pulse 94 | Temp 36.4 C (97.5 F) | RR 16 | Ht 1.549 m (5' 0.98" ) | Wt 180.94 kg (398 lb 14.4 oz) | SpO2 95% | BMI 75.41 kg/(m^2) 24 Hour Vital Min/Max: Systolic (24hrs), Av mmHg, Min:123 mmHg, Max:142 mmHg Diastoli c (24hrs), Av mmHg, Min:69 mmHg, Max:87 mmHg GENERAL: well-developed, well-nourished and obese female NEURO: awake, alert, and oriented LUNGS: CTA bilateral CV: RRR and no murmur ABDOMEN: non tender, soft, active BS, Obese, Incision clean without erythema and no infecti on noted. Contreras intact : good urine output and Patient voiding without difficulty Extremities:Warm and well perfused, ambulatory, toes pink and well perfused and IV sites c lean, without infection Patient Active Hospital Problem List: 1) Hernia ASSESSMENT, MEDICAL DECISION MAKING AND PLAN: Dylan Romero is a 37 y.o. female who is o n HD# 6, POD #6 S/P incarcerated ventral hernia repair with primary repair, panniculectomy. Stable for discharge Ventral hernia - continue with drains, will remove in clinic - stables to be removed in clinic - [place] [phone] [facility] [phone] [facility] [phone] Aminta Goodwin Md - 11/11/2012 7:[address] [facility] DEPARTMENT OF SURGERY EMERGENCY GENERAL SURGERY Division of Trauma and Critical Care Attending Physician: Andie Brian MD Progress Note Note Date: 11/11/2012 Admission Date: 11/06/2012 DYLAN ROMERO, [id number] Hospital Day #5 INTERVAL EVENTS none acute SUBJECTIVE Patient is having some pain around surgical site. Would like to begin PO diet today. Tolera emely full diet Pain well controlled Flatus: YES Tolerating diet: Yes Nausea/Vomiting: None Bowel movement: NO, patient states she has "never been regular" has trouble with chronic co nstipation Progressing with Physical Therapy: YES, patient is ambulating ROS: Chest pain: NO Palpitations: NO Shortness of breath: NO PROCEDURES: ventral hernia repair for incarcerated hernia MEDICATIONS: Current facility-administered medications:ALPRAZolam (aka XANAX) tablet 1 mg, 1 mg, Oral, T ID, Jayne Ponce MD, 1 mg at 04/18/13 08 bisacodyl (aka DULCOLAX) suppository 10 mg, 10 mg, Rectal, DAILY PRN, Aminta Wilson MD pkogyvgamt-unuzvaqzlwzjg-wxcpyppo (aka FIORICET) 50-325-40 mg 1 Tab, 1 Tab, Oral, Q4H PRN, Kaleb Walker NP, 1 Tab at 11/10/12 08 ciprofloxacin (aka CIPRO) tablet 500 mg, 500 mg, Oral, BID, Aminta Wilson MD, 500 mg at 11/11/12802 dextrose IV 25 mL, 25 mL, Intravenous, PRN, Danny Lagos MD enoxaparin (aka LOVENOX) injection 30 mg, 30 mg, Subcutaneous, Q12H (Scheduled), Aracely zhu DO, 30 mg at 11/11/12802 famotidine (aka PEPCID) tablet 20 mg, 20 mg, Oral, BID, Aminta Wilson MD, 20 mg at 10/25 FLUoxetine (aka PROZAC) capsule 40 mg, 40 mg, Oral, DAILY, Onur Allen MD, 40 mg at 0 11/11/12802 glucagon (aka GLUCAGEN) injection 1 mg, 1 mg, Intramuscular, PRN, Danny Lagos MD glucose chewable tablet 16 g, 16 g, Oral, Q15MIN PRN, Danny Lagos MD heparin 10 unit/mL IV flush syringe 50 Units, 50 Units, Intravenous, PRN, Aminta Wilson MD insulin lispro (aka HUMALOG) injection, , Subcutaneous, MEALS and HS, Kaleb Walker NP ketorolac (aka TORADOL) injection 30 mg, 30 mg, Intravenous, Q6H PRN, Dione Grimes MD, 30 mg at 11/08/12 1024 lactobacillus rhamnosus (GG) (aka CULTURELLE) capsule 1 Cap, 1 Cap, Oral, DAILY, Aminta Wilson MD, 1 Cap at 11/11/12 08 LORazepam (aka ATIVAN) injection, , , , magnesium chloride SR (aka SLOW-MAG) tablet 128 mg, 128 mg, Oral, BID, Aminta Wilson MD , 128 mg at 11/11/12 1108 nalbuphine (aka NUBAIN) injection 5 mg, 5 mg, Intravenous, Q4H PRN, Dione Grimes MD, 5 mg at 11/10/12 0804 naloxone (aka NARCAN) injection, , Intravenous, PRN, Aracely Ferrorainero, DO nystatin (aka MYCOSTATIN) powder, , Topical, BID, Danny Lagos MD olanzapine (aka ZYPREXA) tablet 30 mg, 30 mg, Oral, HS, Onur Allen MD, 30 mg at 10/25 02/05 2140 ondansetron (aka ZOFRAN) injection 4 mg, 4 mg, Intravenous, Q12H PRN, Danny Lagos MD, 4 mg at 11/06/122019 oxyCODONE (immediate release) (aka ROXICODONE) tablet 15-30 mg, 15-30 mg, Oral, Q3H PRN, Ángel Wilson MD, 30 mg at 11/11/12 1416 phenol (aka CEPASTAT ES) lozenge 29 mg, 1 Lozenge, Oral, PRN, Aminta Wilson MD, 29 mg a t 11/10/12 1133 polyethylene glycol (aka MIRALAX) powder 17 g, 17 g, Oral, BID, Aminta Wilson MD, 17 g at 11/11/12 0803 potassium chloride IV 40 mEq, 40 mEq, Intravenous, BID, Aminta Wilson MD, 40 mEq at 1108 promethazine (aka PHENERGAN) injection 12.5 mg, 12.5 mg, Intravenous, Q4H PRN, Dione contreras MD, 12.5 mg at 11/07/12 1602 senna-docusate (aka SENOKOT S) 8.6-50 mg 1 Tab, 1 Tab, Oral, DAILY, Aminta Wilson MD, 1 Tab at 11/11/12 0803 torsemide (aka DEMADEX) tablet 40 mg, 40 mg, Oral, BID ( and ), Jayne Ponce MD, 4 0 mg at 11/11/12 0804 traZODone (aka DESYREL) tablet 150 mg, 150 mg, Oral, HS, Onur Allen MD, 150 mg at 2140 OBJECTIVE: PHYSICAL EXAM: Last Vitals: BP 144/66 | Pulse 93 | Temp 36.6 C (97.9 F) | RR 18 | Ht 1.549 m (5' 0.98" ) | Wt 184.07 kg (405 lb 12.8 oz) | SpO2 97% | BMI 76.72 kg/(m^2) 24 Hour Vital Min/Max: Systolic (24hrs), Av mmHg, Min:141 mmHg, Max:153 mmHg Diastolic (24hrs), Av mmHg, Min:66 mmHg, Max:90 mmHg Temp Av.6 C (97.8 F) Min: 36.5 C (97.7 F) Max: 36.6 C (97.9 F)Pulse Av .9 Min: 85 Max: 95 Resp Av.8 Min: 18 Max: 20 SpO2 Av % Min: 96 % Max: 100 % Intake/Output Summary (Last 24 hours) at 11/11/12 1433 Last data filed at 11/11/12 1400 Gross per 24 hour Intake 5011 ml Output 3835 ml Net 1176 ml GENERAL: obese, pleasant, well-nourished, sitting upright in bed NEURO: awake, alert, and oriented LUNGS: CTA bilateral CV: RRR ABDOMEN: non tender, soft, active BS, passing flatus, incisional tenderness and abdominal w ound clean without signs of infection : Ruiz out, patient voiding without difficulty Extremities:Warm and well perfused, no pitting edema noted on exam LABS: Lab Results Component Value Date WBC 7.2 11/11/2012 HB 10.1 11/11/2012 HCT 31.2 11/11/2012 PLT 234 11/11/2012 MCV 81.7 11/11/2012 RDW 16.3 11/11/2012 Patient Active Hospital Problem List: 1) Ventral Hernia ASSESSMENT: Dylan Romero is a 37 y.o. female who is on HD# 5, POD #5 S/P incarcerated ventral hernia repair with primary repair, panniculectomy. Plan of the Day: 1. Place on diabetic diet 2. Continue ambulation Plan of the Stay: 1. If tolerates diet, D/C on 11/12 with Cipro 1000mg x 9 days and oxycodone 15mg #90 tabs 2. F/U in wound clinic in 1 week 3. DIAMOND to remain in until <30ml out per 24hrs, patient to record output ID: Antibiotics: Ciprofloxacin 500mg Expected duration total 7 days Fluids: PO Feeding: regular diet Analgesia: oxycodone 15-30 mg, 3-6 tabs (3-6 x 5 mg tab) PRN q6hrs Sedation:not indicated Thromboprophylaxis: enoxaparin 30mg BID Head of bed: > 30 Activity/PT/OT: ambulate as much as tolerated Yogurt: ABX on Probiotics: Yes, lactobacillus Aminta Wilson MD PGY 1 Buddy Mendez, Aminta Colvin - 11/10/2012 10:18 AM PDT EGS PROGRESS NOTE: Attending Physician: Andie Brian MD 11/10/2012 SUBJECTIVE: Reports she is sore, ambulating around room and in the jamison, no n/v, passing flatus, MEDICATIONS: Current facility-administered medications:ALPRAZolam (aka XANAX) tablet 1 mg, 1 mg, Oral, T ID, Jayne Ponce MD, 1 mg at 11/10/12801 yiioqdfxtf-wgqqeoqohgdnl-rymnhgou (aka FIORICET) 50-325-40 mg 1 Tab, 1 Tab, Oral, Q4H PRN, Kaleb Walker NP, 1 Tab at 11/10/12801 ciprofloxacin (aka CIPRO) tablet 500 mg, 500 mg, Oral, BID, Aminta Wilson MD, 500 mg at 11/10/12801 dextrose IV 25 mL, 25 mL, Intravenous, PRN, Danny Lagos MD enoxaparin (aka LOVENOX) injection 30 mg, 30 mg, Subcutaneous, Q12H (Scheduled), Aracely zhu DO, 30 mg at 11/10/12802 famotidine in NS (aka PEPCID) IV 20 mg, 20 mg, Intravenous, Q12H (Scheduled), Danny solis MD, Last Rate: 200 mL/hr at 11/10/12802, 20 mg at 11/10/12802 FLUoxetine (aka PROZAC) capsule 40 mg, 40 mg, Oral, DAILY, Onur Allen MD, 40 mg at 0 11/10/12801 glucagon (aka GLUCAGEN) injection 1 mg, 1 mg, Intramuscular, PRN, Danny Lagos MD glucose chewable tablet 16 g, 16 g, Oral, Q15MIN PRN, Danny Lagos MD heparin 10 unit/mL IV flush syringe 50 Units, 50 Units, Intravenous, PRN, Aminta Wilson MD HYDROmorphone 25 mg in preservative free NaCl 0.9% 50 mL 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, , Intravenous, KIESHA NUGRANT, Aracely Mccartynato, DO, 0.1 mg at 11/10/12 0748 insulin lispro (aka HUMALOG) injection, , Subcutaneous, MEALS and HS, Kaleb Walker, KALYAN ketorolac (aka TORADOL) injection 30 mg, 30 mg, Intravenous, Q6H PRN, Dione Grimes MD, 30 mg at 11/08/12 1024 lactated ringers IV, 125 mL/hr, Intravenous, CONTINUOUS, Aracely Mccartynato, DO, Last Rate: 1 25 mL/hr at 11/10/12 0038, 125 mL/hr at 11/10/12 0038 lactobacillus rhamnosus (GG) (aka CULTURELLE) capsule 1 Cap, 1 Cap, Oral, DAILY, Aminta Wilson MD, 1 Cap at 11/10/12 0802 LORazepam (aka ATIVAN) injection 0.5-1 mg, 0.5-1 mg, Intravenous, Q6H PRN, Onur Allen MD, 0.5 mg at 11/09/12 1233 LORazepam (aka ATIVAN) injection, , , , nalbuphine (aka NUBAIN) injection 5 mg, 5 mg, Intravenous, Q4H PRN, Dione Grimes MD, 5 mg at 11/10/12 0804 naloxone (aka NARCAN) injection, , Intravenous, PRN, Aracely Mccartynato, DO nystatin (aka MYCOSTATIN) powder, , Topical, BID, Danny Lagos MD olanzapine (aka ZYPREXA) tablet 30 mg, 30 mg, Oral, HS, Onur Allen MD, 30 mg at 10/25 ondansetron (aka ZOFRAN) injection 4 mg, 4 mg, Intravenous, Q12H PRN, Danny Lagos MD, 4 mg at 11/06/12 2020 promethazine (aka PHENERGAN) injection 12.5 mg, 12.5 mg, Intravenous, Q4H PRN, Dione contreras MD, 12.5 mg at 11/07/12 1602 torsemide (aka DEMADEX) tablet 40 mg, 40 mg, Oral, BID ( and ), Jayne Ponce MD, 4 0 mg at 11/10/12 0801 traZODone (aka DESYREL) tablet 150 mg, 150 mg, Oral, HS, Onur Allen MD, 150 mg at 2046 OBJECTIVE: Systolic (24hrs), Av mmHg, Min:138 mmHg, Max:158 mmHg Diastolic (24hrs), Av mmHg, Min:71 mmHg, Max:83 mmHg Pulse Av.2 Min: 80 Max: 95 Temp Av.8 C (98.3 F) Min: 36.6 C (97.9 F) Max: 37 C (98.6 F) Resp Av Min: 18 Max: 18 SpO2 Av.3 % Min: 87 % Max: 100 % Intake/Output Summary (Last 24 hours) at 11/10/12 1018 Last data filed at 11/10/12 1000 Gross per 24 hour Intake 4360 ml Output 3530 ml Net 830 ml DIAMOND: 370 PHYSICAL EXAM: General: Alert and oriented, NAD Respiratory: unlabored, CTAB CV: RRR, no m/r/g Abdomen: soft, nontender, nondistended. incision clean/dry/intact, redness receded from ye sterday , pink around contreras Drain: DIAMOND drain x1 to bulb suction, serosanguinous drainage Extremities: Warm and well perfused LABS: Chemistries Recent Labs Basename 11/10/12 0954 11/10/12 0556 11/10/12 0340 11/09/12 0406 11/08/12 0748 NA -- -- 141 141 143 K -- -- 3.4 3.3* 3.5 CL -- -- 101 99 103 BICARB -- -- 31 34* 33* BUN -- -- 6 8 6 CR -- -- 0.51* 0.60 0.64 GLU 103* 90 79 -- -- CA -- -- 8.0* 8.4* 7.8* MG -- -- 1.5* 1.2* 1.4* PO4 -- -- 2.4 2.2* 2.4 AST -- -- -- -- -- ALT -- -- -- -- -- AP -- -- -- -- -- TBILI -- -- -- -- -- ALB -- -- 2.5* 2.9* 2.7* CBC with diff Recent Labs Basename 11/10/12 0340 11/09/12 0406 11/08/12 0748 WBC 8.4 11.9* 9.6 HB 10.0* 11.2* 10.5* HCT 32.1* 35.5* 33.1* PLT 231 244 218 NEUTROPERC -- -- -- BANDPCT -- -- -- LYMPHPERC -- -- -- MONOPERC -- -- -- BASOPERC -- -- -- EOSPERC -- -- -- Coag No components found with this basename: inr, ptt, pt CBG's Recent Labs Basename 11/10/12 0954 11/10/12 0556 11/10/12 0340 11/09/12 2326 11/09/12 1808 11/09/12 121 9 11/09/12 0610 11/09/12 0406 11/09/12 0015 11/08/12 1817 GLU 103* 90 79 92 94 81 90 88 86 84 ASSESSMENT AND PLAN: Dylan Romero is a 37 y.o. female who is on HD# 4, POD #4 S/P incarcerated ventral herni a repair with primary repair, panniculectomy. Incarcerated hernia, now s/p repair and panniculectomy 19F vanessa above fascia -Binder, pain control, minimize nausea and coughing PRN. 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 Migraines -Nubain, Fioricet, toradol, and phenergan per prior regimen -Afebrile, monitor. Acute blood loss anemia -Stable, no indication for transfusion Bipolar disorder - continue zyprexa and prozac with prn xanax Leukocytosis 8.4 UTI -cipro for 7days Dispo: continue [facility] care ID: Antibiotics:cipro Fluids: LR 125ml/hr Feeding: NPO Analgesia: Dilaudid TURNING AND BEADING MACHINE OPERATOR Sedation: not indicated Thromboprophylaxis: enoxaparin Head of bed: > 30 Ulcer prophylaxis: pepcid Glycemic control: adequate Activity/PT/OT: Ongoing Yogurt: ABX on Probiotics:yes AMINTA WILSON MD General Surgery, R1 Buddy Mendez, Aminta Gil 11/09/2012 9:17 AM PDT EGS PROGRESS NOTE: Attending Physician: Andie Brian MD 11/09/2012 SUBJECTIVE: Reports she is sore but her pain is well controlled, she is hopeful she can eat soon, repor ts passing gas but no BM. Doing IS and ambulating MEDICATIONS: Current facility-administered medications:acetaminophen (aka TYLENOL) tablet 650 mg, 650 mg , Oral, Q6H, Jayne Ponce MD, 650 mg at 11/09/12 0417 ALPRAZolam (aka XANAX) tablet 1 mg, 1 mg, Oral, TID, Jayne Ponce MD, 1 mg at 11/09/12 0855 osuhjdvzdo-tecuibwkvtdmx-yquzwwox (aka FIORICET) 50-325-40 mg 1 Tab, 1 Tab, Oral, Q4H PRN, Kaleb Walker NP, 1 Tab at 11/09/12 0443 dextrose IV 25 mL, 25 mL, Intravenous, PRN, Danny Lagos MD enoxaparin (aka LOVENOX) injection 30 mg, 30 mg, Subcutaneous, Q12H (Scheduled), Aracely zhu DO, 30 mg at 11/09/12 0857 famotidine in NS (aka PEPCID) IV 20 mg, 20 mg, Intravenous, Q12H (Scheduled), Danny solis MD, Last Rate: 200 mL/hr at 11/09/12 0858, 20 mg at 11/09/12 0858 FLUoxetine (aka PROZAC) capsule 40 mg, 40 mg, Oral, DAILY, Onur Allen MD, 40 mg at 0 11/09/12 0855 glucagon (aka GLUCAGEN) injection 1 mg, 1 mg, Intramuscular, PRN, Danny Lagos MD glucose chewable tablet 16 g, 16 g, Oral, Q15MIN PRN, Danny Lagos MD HYDROmorphone 25 mg in preservative free NaCl 0.9% 50 mL 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, , Intravenous, KIESHA NUOUS, Aracley Cruzo, DO, 0.3 mg at 11/09/12 0853 insulin lispro (aka HUMALOG) injection, , Subcutaneous, MEALS and HS, Kaleb Walker, KALYAN ketorolac (aka TORADOL) injection 30 mg, 30 mg, Intravenous, Q6H PRN, Dione Grimes MD, 30 mg at 11/08/12 1024 lactated ringers IV, 125 mL/hr, Intravenous, CONTINUOUS, Aracely Flores, , Last Rate: 1 25 mL/hr at 11/09/12 0416, 125 mL/hr at 11/09/12 0416 lactobacillus rhamnosus (GG) (aka CULTURELLE) capsule 1 Cap, 1 Cap, Oral, DAILY, Aminta Wilson MD LORazepam (aka ATIVAN) injection 0.5-1 mg, 0.5-1 mg, Intravenous, Q6H PRN, Onur Allen MD, 0.5 mg at 11/07/12 0615 nalbuphine (aka NUBAIN) injection 5 mg, 5 mg, Intravenous, Q4H PRN, Dione Grimes MD, 5 mg at 11/09/12 0443 naloxone (aka NARCAN) injection, , Intravenous, PRN, Aracely Ferronato, DO nystatin (aka MYCOSTATIN) powder, , Topical, BID, Danny Lagos MD olanzapine (aka ZYPREXA) tablet 30 mg, 30 mg, Oral, HS, Onur Allen MD, 30 mg at 10/25 ondansetron (aka ZOFRAN) injection 4 mg, 4 mg, Intravenous, Q12H PRN, Danny Lagos MD, 4 mg at 11/06/12 2020 potassium & sodium phosphates (aka NEUTRA-PHOS, PHOS-NAK) 280-160-250 mg packet 2 Packet, 2 Packet, Oral, ONCE, Aminta Wilson MD potassium chloride IV 40 mEq, 40 mEq, Intravenous, BID, Aminta Wilson MD, 40 mEq at 0900 promethazine (aka PHENERGAN) injection 12.5 mg, 12.5 mg, Intravenous, Q4H PRN, Dione contreras MD, 12.5 mg at 11/07/12 1602 torsemide (aka DEMADEX) tablet 40 mg, 40 mg, Oral, BID ( and ), Jayne Ponce MD, 4 0 mg at 11/09/12 0855 traZODone (aka DESYREL) tablet 150 mg, 150 mg, Oral, HS, Onur Allen MD, 150 mg at 2122 trimethoprim-sulfamethoxazole (aka BACTRIM DS,SEPTRA DS) 160-800 mg tablet 1 Tab, 1 Tab, Or al, BID, Aminta Wilson MD OBJECTIVE: Systolic (24hrs), Av mmHg, Min:125 mmHg, Max:140 mmHg Diastolic (24hrs), Av mmHg, Min:67 mmHg, Max:79 mmHg Pulse Av.4 Min: 88 Max: 105 Temp Av.8 C (98.2 F) Min: 36.5 C (97.7 F) Max: 37.1 C (98.8 F) Resp Av Min: 18 Max: 18 SpO2 Av.8 % Min: 91 % Max: 97 % Intake/Output Summary (Last 24 hours) at 11/09/12 0917 Last data filed at 11/09/12 0658 Gross per 24 hour Intake 2675.83 ml Output 2815 ml Net -139.17 ml Drain: 265 PHYSICAL EXAM: General: Alert and oriented, NAD Respiratory: unlabored, CTAB CV: RRR, no m/r/g Abdomen: Protuberant, soft, appropriately tender to palpation, nondistended. incision estephanie n/dry/intact but noted slightly pink at contreras, no warmth or induration or drainage : voiding without difficulty Drain: DIAMOND drain x1 to bulb suction, serosanguinous drainage Extremities: Warm and well perfused LABS: Chemistries Recent Labs Basename 11/09/12 0610 11/09/12 0406 11/09/12 0015 11/08/12 0748 11/07/12 0030 NA -- 141 -- 143 143 K -- 3.3* -- 3.5 3.7 CL -- 99 -- 103 109* BICARB -- 34* -- 33* 27 BUN -- 8 -- 6 13 CR -- 0.60 -- 0.64 0.62 GLU 90 88 86 -- -- CA -- 8.4* -- 7.8* 8.4* MG -- 1.2* -- 1.4* 1.7* PO4 -- 2.2* -- 2.4 2.6 AST -- -- -- -- -- ALT -- -- -- -- -- AP -- -- -- -- -- TBILI -- -- -- -- -- ALB -- 2.9* -- 2.7* 2.8* CBC with diff Recent Labs Basename 11/09/12 0406 11/08/12 0748 11/07/12 0030 WBC 11.9* 9.6 13.6* HB 11.2* 10.5* 10.6* HCT 35.5* 33.1* 33.1* PLT 244 218 237 NEUTROPERC -- -- -- BANDPCT -- -- -- LYMPHPERC -- -- -- MONOPERC -- -- -- BASOPERC -- -- -- EOSPERC -- -- -- Coag No components found with this basename: inr, ptt, pt CBG's Recent Labs Basename 11/09/12 0610 11/09/12 0406 11/09/12 0015 11/08/12 1817 11/08/12 1209 11/08/12 074 8 11/08/12 0558 11/07/12 2353 11/07/12 1825 11/07/12 0030 GLU 90 88 86 84 97 90 92 94 82 120* ASSESSMENT AND PLAN: Dylan Romero is a 37 y.o. female who is on HD# 3, POD #3 S/P incarcerated ventral herni a repair with primary repair, panniculectomy. Incarcerated hernia, now s/p repair and panniculectomy 19F vanessa above fascia -Binder, pain control, minimize nausea and coughing PRN. 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 Morbid obesity BMI 76.37 -Monitor need for CPAP at night and resp status closely. Migraines -Nubain, Fioricet, toradol, and phenergan per prior regimen -Afebrile, monitor. Acute blood loss anemia -Stable, no indication for transfusion Bipolar disorder - continue zyprexa and prozac with prn xanax Leukocytosis 11.9 UTI -three days of bactrim BID ID: Antibiotics:Bactrim Fluids: LR 125ml/hr Feeding: NPO Analgesia: Dilaudid TURNING AND BEADING MACHINE OPERATOR Sedation: not indicated Thromboprophylaxis: enoxaparin Head of bed: > 30 Ulcer prophylaxis: pepcid Glycemic control: adequate Activity/PT/OT: Ongoing Yogurt: ABX on Probiotics:yes AMINTA WILSON MD General Surgery, R1 Kaleb Martin N P - 11/08/2012 8:49 AM PDT [facility] DEPARTMENT OF SURGERY EMERGENCY GENERAL SURGERY Division of Trauma and Critical Care Attending Physician: Andie Brian MD Progress Note Note Date: 11/08/2012 Admission Date: 11/06/2012 DYLAN ROMERO, [id number] Hospital Day #2 INTERVAL EVENTS NO SUBJECTIVE Pain well controlled; has headache attributed to dilaudid TURNING AND BEADING MACHINE OPERATOR Tylenol did not help. Flatus: YES Tolerating diet: N/A Nausea/Vomiting: None Bowel movement: NO; When: Na Progressing with Physical Therapy YES; chair ROS: Chest pain: NO Palpitations: NO Shortness of breath: NO CONSULTS: na PROCEDURES: 11/06/12 1) Exploratory laparotomy 2) Excision of excess skin and chronic wound infection 3) Primary ventral hernia repair 4) 19Fr Round Vanessa Drain 5) Staple skin closure MEDICATIONS: Reviewed OBJECTIVE: PHYSICAL EXAM: Last Vitals: BP 158/112 | Pulse 95 | Temp 36.8 C (98.2 F) | RR 16 | Ht 1.549 m (5' 0.98 ") | Wt 183.253 kg (404 lb) | SpO2 100% | BMI 76.38 kg/(m^2) 24 Hour Vital Min/Max: Systolic (24hrs), Av mmHg, Min:119 mmHg, Max:158 mmHg Diastolic (24hrs), Av mmHg, Min:67 mmHg, Max:112 mmHg Temp Av.9 C (98.4 F) Min: 36.8 C (98.2 F) Max: 37 C (98.6 F)Pulse Av.4 Min: 95 Max: 112 Resp Av.6 Min: 16 Max: 25 SpO2 Av.6 % Min: 85 % Max: 100 % Intake/Output Summary (Last 24 hours) at 11/08/12 0849 Last data filed at 11/08/12 0601 Gross per 24 hour Intake 2270 ml Output 6815 ml Net -4545 ml GENERAL: well-developed, well-nourished, morbidly obese NEURO: awake, alert, and oriented LUNGS: CTA bilateral CV: RRR ABDOMEN: soft, non distended. Incisional tenderness abdominal dressing clean and dry. Girma e RLQ with seroang fluid. : Ruiz catheter in place and good urine output Extremities:Warm and well perfused, SCD's in place, toes pink and well perfused and IV sit es clean, without infection CULTURES: na IMAGING:cxr 11/06/12 IMPRESSION: Low lung volumes with persistent right upper lobe collapse, presumably due to mucous plugging. VASCULAR STUDIES: na LABS: Reviewed Patient Active Hospital Problem List: 1) Hernia ASSESSMENT: Dylan Romero is a 37 y.o. Morbidly obese female who presented with an inca rcerated ventral hernia who is now POD#2 s/p primary repair. Transferred from ICU to [facility]. Incarcerated hernia, now s/p repair and panniculectomy 19F vanessa above fascia -Binder, pain control, minimize nausea and coughing PRN. -NG clamping trials today. 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 Morbid obesity BMI 76.37 -Monitor need for CPAP at night and resp status closely. Migraines -Nubain, toradol, and phenergan per prior regimen. - will add Fioricet -Afebrile, monitor. Acute blood loss anemia -Stable, no indication for transfusion Bipolar disorder - continue zyprexa and prozac with prn xanax Leukocytosis resolved WBC 9.6 ID: Antibiotics: na Fluids: LR 125ml/hr Feeding: NPO Analgesia: Dilaudid TURNING AND BEADING MACHINE OPERATOR Sedation: not indicated Thromboprophylaxis: enoxaparin Head of bed: > 30 Ulcer prophylaxis: pepcid Glycemic control: adequate Activity/PT/OT: Ongoing Yogurt: ABX on Probiotics: No KALEB WALKER NP [facility] [address] [place] [address] elvin Stephens MD - 11/07/2012 9:51 PM PDT Trauma / Surgical Critical Care Service - Progress Note Name: DYLAN ROMERO Date: 11/07/2012 Time: 9:52 PM Author: DIONE GRIMES MD HPI: 37 y.o. y/o female admitted on 11/06/2012 4:10 AM and hospital day 1 with below curre nt issues. Patient Active Problem List Diagnoses Hernia Interval Events & Subjective: -No acute events. Afebrile. Objective: Last Vitals: BP 142/71 | Pulse 103 | Temp 36.9 C (98.4 F) | RR 20 | Ht 1.549 m (5' 0.98 ") | Wt 183.253 kg (404 lb) | SpO2 96% | BMI 76.38 kg/(m^2) 24 Hour Vital Min/Max: Systolic (24hrs), Av mmHg, Min:97 mmHg, Max:164 mmHg Diastolic (24hrs), Av mmHg, Min:47 mmHg, Max:88 mmHg Pulse Min: 74 Max: 112 Temp Min: 36.5 C (97.7 F) Max: 37.3 C (99.1 F) Resp Min: 12 Max: 30 SpO2 Min: 93 % Max: 98 % Intake/Output Summary (Last 24 hours) at 11/07/122151 Last data filed at 11/07/122131 Gross per 24 hour Intake 4655.87 ml Output 6780 ml Net -2124.13 ml Exam: General: Alert and oriented, NAD Respiratory: unlabored, CTAB CV: RRR, no m/r/g Abdomen: super obese, soft, appropriately tender, nondistended. Incision dressed, clean. : ruiz catheter in place, urine clear, yellow. Extremities: mild edema. Recent Labs Chemistries Recent Labs Basename 11/07/12 1825 11/07/12 0030 11/06/12 1550 11/06/12 0628 NA -- 143 142 142 K -- 3.7 3.0* 3.6 CL -- 109* 108 107 BICARB -- 27 25 26 BUN -- CR -- 0.62 0.67 0.66 GLU 82 120* 120* -- CA -- 8.4* 8.5* 9.4 MG -- 1.7* -- 1.7* PO4 -- 2.6 3.0 3.2 AST -- -- -- 25 ALT -- -- -- 25 AP -- -- -- 75 TBILI -- -- -- 0.5 ALB -- 2.8* 2.9* 3.4* CBC with diff Recent Labs Basename 11/07/12 0030 11/06/12 1550 11/06/12 0628 WBC 13.6* 17.2* 13.3* HB 10.6* 11.2* 12.3 HCT 33.1* 35.0* 38.4 PLT 237 270 320 NEUTROPERC -- -- 79* BANDPCT -- -- -- LYMPHPERC -- -- 14* MONOPERC -- -- 6 BASOPERC -- -- 0 EOSPERC -- -- 0* CBG's Recent Labs Basename 11/07/12 1825 11/07/12 0030 11/06/12 1550 11/06/12 1456 11/06/12 1023 11/06/12 062 8 GLU 82 120* 120* 132* 116* 135*|133* Recent Labs Basename 11/06/12 1550 PH 7.33* PCO2 49* PO2 113* HCO3 25 AVYBJ2SDC 26 B1IAOBBP 98.3* G4IOVXBFI -- FIO2 60 ABGEXCESS -0.9 Assessment, Medical Decision Making and Plan 1. Incarcerated hernia, now s/p repair and panniculectomy -Binder, pain control, minimize nausea and coughing PRN. -NG clamping trials today. 2. 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 Diabetes: -insulin gtt 4. Morbid obesity -Monitor need for CPAP at night and resp status closely. -Maintain ruiz; DC betsy. 5. Migraines -Nubain, toradol, and phenergan per prior regimen. 6. Leukocytosis -Afebrile, monitor. 7. Acute blood loss anemia -Stable, no indication for transfusion 8. Prophylaxis -Feeding: NPO -Analgesia: as above. -Sedation/sleep: PRN. -VTE PPY: on enox 30mg q12h; verify with pharmacy that this is an appropriate PPY dose. -HOB: elevate to 30deg -Ulcer PPY: famotidine -Glycemic: insulin gtt 9. Disposition: ICU level of care. Signed: Dione Grimes MD R-2, General Surgery Pager: [phone] [facility] [place] Department of Surgery Trauma ICU Team Pager (24hrs/day): [phone] I was present with the resident during the history and exam. I discussed the case with the resident and agree with the findings and plan as documented in the resident s note. KELVIN STEPHENS MD [facility] [address] [place] [address] [id number] uOnur patton MD - 11/07/2012 2:37 AM PDT EMERGENCY GENERAL SURGERY ICU PROGRESS NOTE 24 Hour Events: To OR yesterday for repair of incarcerated ventral hernia. Left intubated i n ICU post-operatively but extubated a few hours later. Exam: Vitals: Temp Av.1 C (98.8 F) Min: 36.9 C (98.4 F) Max: 37.5 C (99.5 F) Pulse Av.6 Min: 73 Max: 105 Systolic (24hrs), Av mmHg, Min:87 mmHg, Max:141 mmHg Diastolic (24hrs), Av mmHg, M in:40 mmHg, Max:80 mmHg Resp Av.1 Min: 15 Max: 30 SpO2 Av.7 % Min: 92 % Max: 100 % Last Vitals: BP 115/62 | Pulse 96 | Temp 37.1 C (98.8 F) | RR 18 | Ht 1.549 m (5' 0.98" ) | Wt 183.253 kg (404 lb) | SpO2 96% | BMI 76.38 kg/(m^2) Gen: Alert, oriented, NAD CV: Regular rate and rhythm Resp: Clear to auscultation bilaterally, breathing comfortably on nasal cannula Abd: morbidly obese, soft, appropriately tender, wound with dressing cdi, DIAMOND serosanguinous I/Os: Intake/Output Summary (Last 24 hours) at 11/07/12 0237 Last data filed at 11/07/12 0200 Gross per 24 hour Intake 3974 ml Output 1078 ml Net 2896 ml Chemistries: Last 72 Hours (or 3 results): Recent Labs Basename 11/07/12 0030 11/06/12 1550 11/06/12 1456 11/06/12 0628 NA 143 142 -- 142 K 3.7 3.0* -- 3.6 CL 109* 108 -- 107 BICARB 27 25 -- 26 BUN 13 15 -- 13 CR 0.62 0.67 -- 0.66 GLU 120* 120* 132* -- CA 8.4* 8.5* -- 9.4 MG 1.7* -- -- 1.7* PO4 2.6 3.0 -- 3.2 CBC with diff last 72 hours (or 3 results) Recent Labs Basename 11/07/12 0030 11/06/12 1550 11/06/12 0628 WBC 13.6* 17.2* 13.3* HB 10.6* 11.2* 12.3 HCT 33.1* 35.0* 38.4 PLT 237 270 320 NEUTROPERC -- -- 79* BANDPCT -- -- -- LYMPHPERC -- -- 14* MONOPERC -- -- 6 BASOPERC -- -- 0 EOSPERC -- -- 0* No Data Recorded Last Current Facility-Administered Medications Medication Dose Route Frequency Provider Last Rate Last Dose acetaminophen (aka TYLENOL) tablet 325-650 mg 325-650 mg Oral Q4H PRN Danny Lagos MD Or acetaminophen (aka TYLENOL) oral suspension 325-650 mg 325-650 mg Feeding Tube Q4H PRN Danny Lagos MD 650 mg at 11/06/12 2353 Or acetaminophen (aka TYLENOL) suppository 325-650 mg 325-650 mg Rectal Q4H PRN Danny Yu MD albuterol 0.083% (aka PROVENTIL,VENTOLIN) 2.5 mg /3 mL (0.083 %) nebulizer solution 2.5 mg 2.5 mg Inhalation Q4H PRN Danny Lagos MD artificial tears (hypromellose) (aka NATURES TEARS) 0.4 % ophthalmic drops [address] Both Eyes PRN Danny Lagos MD chlorhexidine (aka PERIDEX) mouthwash 15 mL 15 mL Oral Q6H Danny Lagos MD 15 mL at 11/06/122029 dexmedetomidine 400 mcg in NaCl 0.9 % IV infusion 0.3-0.7 mcg/kg/hr (Dosing Weight) In travenous CONTINUOUS Ana De Luna PA-C 0.2 mcg/kg/hr at 11/06/12 2300 dextrose IV 25 mL 25 mL Intravenous PRN Danny Lagos MD famotidine in NS (aka PEPCID) IV 20 mg 20 mg Intravenous Q12H (Scheduled) Danny silva MD 200 mL/hr at 11/06/122011 20 mg at 11/06/122011 fentaNYL citrate (PF) (aka SUBLIMAZE) injection 25-100 mcg 25-100 mcg Intravenous Q1H PRN Danny Lagos MD 50 mcg at 11/06/122051 FLUoxetine (aka PROZAC) capsule 40 mg 40 mg Oral DAILY Onur Allen MD 40 mg at 11/06/12 0758 glucagon (aka GLUCAGEN) injection 1 mg 1 mg Intramuscular PRN Danny Lagos MD glucose chewable tablet 16 g 16 g Oral Q15MIN PRN Danny Lagos MD HYDROmorphone 25 mg in preservative free NaCl 0.9% 50 mL 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 Intravenous CON TINUOUS Aracely Flores, DO 0.2 mg at 11/06/12 2200 insulin regular in NaCl 0.9% IV infusion 250 units/250 mL (1 unit/mL) 0.1-50 Units/hr Intravenous CONTINUOUS Danny Lagos MD lactated ringers IV 100 mL/hr Intravenous CONTINUOUS Danny Lagos MD 100 mL/hr at 0 11/07/12 0200 100 mL/hr at 11/07/12 0200 LORazepam (aka ATIVAN) injection 1-4 mg 1-4 mg Intravenous Q1H PRN Danny Lagos MD 2 mg at 11/06/12 1548 mupirocin (aka BACTROBAN) 2 % ointment Nasal BID Danny Lagos MD naloxone (aka NARCAN) injection Intravenous PRN Aracely Flores DO nystatin (aka MYCOSTATIN) powder Topical BID Danny Lagos MD olanzapine (aka ZYPREXA) tablet 30 mg 30 mg Oral HS Onur Allen MD 30 mg at 235 ondansetron (aka ZOFRAN) injection 4 mg 4 mg Intravenous Q12H PRN Danny Lagos MD 4 mg at 11/06/12 2020 potassium chloride IV 20 mEq 20 mEq Intravenous PRN Danny Lagos MD 20 mEq at 0159 propofol (aka DIPRIVAN) injection 0.5-60 mcg/kg/min (Dosing Weight) Intravenous CONTIN UOUS Danny Lagos MD 30 mcg/kg/min at 11/06/12 1930 traZODone (aka DESYREL) tablet 150 mg 150 mg Oral HS Onur Allen MD 150 mg at 11/06/12 2353 Assessment & Plan: Dylan Romero is a 37 y.o. Morbidly obese female who presented with an incarcerated vent ral hernia who is now POD#1 s/p primary repair. 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 programmer and prn tylenol, continue prozac and zyprexa for chronic depre ssion, continue prn ativan as on prn benzos at home Resp: continue pulmonary toilet, O2 prn CV: continue fluid resuscitation, getting bolused this AM for low UOP FEN/GI: replete electrolytes, NPO for now, probable remove NGT today Renal/: continue ruiz for strict in and out, fluid resuscitation Endo: insulin gtt Heme/ID: crit with appropriate drop post-operatively, no indication for antibiotics at this time Wound care: dressing to stay in place until POD#2, DIAMOND to bulb suction Dispo: probable transfer to [facility] today F: probable remain NPO today A: dilaudid web programmer, prn tylenol S: prn benzos as she is at home T: will start prophylactic lovenox today H: HOB >30 degrees U: pepcid G: insulin gtt ONUR ALLEN MD, PGY3 [facility] [id number] [address] Onelia Shrestha MD - 11/06/2012 8:41 AM PDT [facility] DEPARTMENT OF SURGERY Division of Trauma and Critical Care Emergency General Surgery / Acute Care Surgery Attending Physician: Andie Brian MD Note Date: 11/06/2012 Admission Date: 11/06/2012 DYLAN ROMERO, [id number] Hospital Day #0 OVERNIGHT EVENTS: anxious SUBJECTIVE: Pain well controlled Flatus: YES Tolerating diet: N/A Nausea/Vomiting: None Bowel movement NO CONSULTS: PROCEDURES: MEDICATIONS: Reviewed Antibiotics:None PHYSICAL EXAM: Last Vitals: Last Vitals: BP 112/80 | Pulse 105 | Temp 37.1 C (98.8 F) | RR 18 | SpO2 9 3% 24 Hour Vital Min/Max: Systolic (24hrs), Av mmHg, Min:112 mmHg, Max:141 mmHg Diastolic (24hrs), Av mmHg, Min:77 mmHg, Max:80 mmHg Pulse Min: 100 Max: 105 Temp Min: 36.9 C (98.4 F) Max: 37.1 C (98.8 F) Resp Min: 18 Max: 18 SpO2 Min: 92 % Max: 93 % Intake/Output Summary (Last 24 hours) at 11/06/12 0841 Last data filed at 11/06/12 0700 Gross per 24 hour Intake 142.5 ml Output 200 ml Net -57.5 ml Gen: AOx3, anxious, sitting up in bed, NAD Resp: unlabored Abd: obese, soft, large ventral hernia, tender to palpation, chronic RLQ abdominal wound. Ext: zenia LABS: reviewed and are available in [facility] (if new data) IMAGING: VASCULAR: IMPRESSION: Dylan Romero is a 37 y.o. Female with multiple co-morbidities, who was admitted on 11/06 for a larger strangulated ventral hernia. Plan for OR this morning for ventral hernia repair. Ventral Hernia - strangulated. Plan for OR today - NPO - IVF - pain medication as needed - Consent obtained ONELIA DE JESUS MD General Surgery, R1 documented in this enc ounter Plan of Treatment +--------+ + + + + | Date | Type | Specialty | Care Team | Description | +--------+ + + + + | 05/13/ | Office | Plastic Surgery | Archie Ybarra MD | | | 2018 | Visit | | [address] | | | | | | [place], [place] | | | | | | [address] | | | | | | [phone] | | | | | | | [...] | | | | | [place], [place] | | | | | | [address] | | | | | | [phone] | | | | | | | [...] | + +--------+ + + + | REPAIR, VENTRAL | Routin | 08/30/2015 | | Results for this | | HERNIA, | e | 10:59 PM | | procedure are in the | | INCARCERATED, | | PST | | results section. | | RECURRENT | | | | | + +--------+ + + + | EXPLORATORY | Routin | 08/30/2015 | | Results for this | | LAPAROTOMY | e | 10:59 PM | | procedure are in the | | | | PST | | results section. | + +--------+ + + + | REPAIR, VENTRAL | Routin | 08/30/2015 | | Results for this | | HERNIA, | e | 10:59 PM | | procedure are in the | | INCARCERATED, | | PST | | results section. | | INITIAL | | | | | + +--------+ + + + | VASC LAB PORTABLE | Routin | 11/12/2012 | | Results for this | | VENOUS DUPLEX LOWER | e | 2:11 PM | | procedure are in the | | EXTREMITY BILATERAL | | PDT | | results section. | | COMPLETE | | | | | + +--------+ + + + | CAPILLARY BLOOD | Routin | 11/12/2012 | | Results for this | | GLUCOSE (NO CHG), | e | 12:57 PM | | procedure are in the | | POC | | PDT | | results section. | + +--------+ + + + | CAPILLARY BLOOD | Routin | 11/12/2012 | | Results for this | | GLUCOSE (NO CHG), | e | 9:08 AM | | procedure are in the | | POC | | PDT | | results section. | + +--------+ + + + | CBC ONLY | Routin | 11/12/2012 | | Results for this | | | e | 3:56 AM | | procedure are in the | | | | PDT | | results section. | + +--------+ + + + | RENAL FUNCTION SET | Routin | 11/12/2012 | | Results for this | | (NA,K,CL,CO2,BUN,CRE | e | 3:56 AM | | procedure are in the | | AT,GLUC,CA,PHOS,ALB | | PDT | | results section. | | ) | | | | | + +--------+ + + + | CBC ONLY | Routin | 11/12/2012 | | Results for this | | | e | 3:56 AM | | procedure are in the | | | | PDT | | results section. | + +--------+ + + + | MAGNESIUM, PLASMA | Routin | 11/12/2012 | | Results for this | | | e | 3:56 AM | | procedure are in the | | | | PDT | | results section. | + +--------+ + + + | CAPILLARY BLOOD | Routin | 11/11/2012 | | Results for this | | GLUCOSE (NO CHG), | e | 9:49 PM | | procedure are in the | | POC | | PDT | | results section. | + +--------+ + + + | CAPILLARY BLOOD | Routin | 11/11/2012 | | Results for this | | GLUCOSE (NO CHG), | e | 6:40 PM | | procedure are in the | | POC | | PDT | | results section. | + +--------+ + + + | CAPILLARY BLOOD | Routin | 11/11/2012 | | Results for this | | GLUCOSE (NO CHG), | e | 1:51 PM | | procedure are in the | | POC | | PDT | | results section. | + +--------+ + + + | CAPILLARY BLOOD | Routin | 11/11/2012 | | Results for this | | GLUCOSE (NO CHG), | e | 1:13 PM | | procedure are in the | | POC | | PDT | | results section. | + +--------+ + + + | CAPILLARY BLOOD | Routin | 11/11/2012 | | Results for this | | GLUCOSE (NO CHG), | e | 8:17 AM | | procedure are in the | | POC | | PDT | | results section. | + +--------+ + + + | CBC ONLY | Routin | 11/11/2012 | | Results for this | | | e | 3:38 AM | | procedure are in the | | | | PDT | | results section. | + +--------+ + + + | RENAL FUNCTION SET | Routin | 11/11/2012 | | Results for this | | (NA,K,CL,CO2,BUN,CRE | e | 3:38 AM | | procedure are in the | | AT,GLUC,CA,PHOS,ALB | | PDT | | results section. | | ) | | | | | + +--------+ + + + | CBC ONLY | Routin | 11/11/2012 | | Results for this | | | e | 3:38 AM | | procedure are in the | | | | PDT | | results section. | + +--------+ + + + | MAGNESIUM, PLASMA | Routin | 11/11/2012 | | Results for this | | | e | 3:38 AM | | procedure are in the | | | | PDT | | results section. | + +--------+ + + + | CAPILLARY BLOOD | Routin | 11/10/2012 | | Results for this | | GLUCOSE (NO CHG), | e | 9:45 PM | | procedure are in the | | POC | | PDT | | results section. | + +--------+ + + + | CAPILLARY BLOOD | Routin | 11/10/2012 | | Results for this | | GLUCOSE (NO CHG), | e | 4:27 PM | | procedure are in the | | POC | | PDT | | results section. | + +--------+ + + + | CAPILLARY BLOOD | Routin | 11/10/2012 | | Results for this | | GLUCOSE (NO CHG), | e | 12:39 PM | | procedure are in the | | POC | | PDT | | results section. | + +--------+ + + + | CAPILLARY BLOOD | Routin | 11/10/2012 | | Results for this | | GLUCOSE (NO CHG), | e | 9:54 AM | | procedure are in the | | POC | | PDT | | results section. | + +--------+ + + + | CAPILLARY BLOOD | Routin | 11/10/2012 | | Results for this | | GLUCOSE (NO CHG), | e | 5:56 AM | | procedure are in the | | POC | | PDT | | results section. | + +--------+ + + + | CBC ONLY | Routin | 11/10/2012 | | Results for this | | | e | 3:40 AM | | procedure are in the | | | | PDT | | results section. | + +--------+ + + + | RENAL FUNCTION SET | Routin | 11/10/2012 | | Results for this | | (NA,K,CL,CO2,BUN,CRE | e | 3:40 AM | | procedure are in the | | AT,GLUC,CA,PHOS,ALB | | PDT | | results section. | | ) | | | | | + +--------+ + + + | CBC ONLY | Routin | 11/10/2012 | | Results for this | | | e | 3:40 AM | | procedure are in the | | | | PDT | | results section. | + +--------+ + + + | MAGNESIUM, PLASMA | Routin | 11/10/2012 | | Results for this | | | e | 3:40 AM | | procedure are in the | | | | PDT | | results section. | + +--------+ + + + | CAPILLARY BLOOD | Routin | 11/09/2012 | | Results for this | | GLUCOSE (NO CHG), | e | 11:26 PM | | procedure are in the | | POC | | PDT | | results section. | + +--------+ + + + | CAPILLARY BLOOD | Routin | 11/09/2012 | | Results for this | | GLUCOSE (NO CHG), | e | 6:08 PM | | procedure are in the | | POC | | PDT | | results section. | + +--------+ + + + | CAPILLARY BLOOD | Routin | 11/09/2012 | | Results for this | | GLUCOSE (NO CHG), | e | 12:19 PM | | procedure are in the | | POC | | PDT | | results section. | + +--------+ + + + | CULTURE, URINE BACTI | Routin | 11/09/2012 | | Results for this | | | e | 8:43 AM | | procedure are in the | | | | PDT | | results section. | + +--------+ + + + | UA, DIPSTICK ONLY | Urgent | 11/09/2012 | | Results for this | | | | 6:57 AM | | procedure are in the | | | | PDT | | results section. | + +--------+ + + + | URINE, MICROSCOPIC | Urgent | 11/09/2012 | | Results for this | | EXAM | | 6:57 AM | | procedure are in the | | | | PDT | | results section. | + +--------+ + + + | CAPILLARY BLOOD | Routin | 11/09/2012 | | Results for this | | GLUCOSE (NO CHG), | e | 6:10 AM | | procedure are in the | | POC | | PDT | | results section. | + +--------+ + + + | CBC ONLY | Routin | 11/09/2012 | | Results for this | | | e | 4:06 AM | | procedure are in the | | | | PDT | | results section. | + +--------+ + + + | RENAL FUNCTION SET | Urgent | 11/09/2012 | | Results for this | | (NA,K,CL,CO2,BUN,CRE | | 4:06 AM | | procedure are in the | | AT,GLUC,CA,PHOS,ALB | | PDT | | results section. | | ) | | | | | + +--------+ + + + | CBC ONLY | Routin | 11/09/2012 | | Results for this | | | e | 4:06 AM | | procedure are in the | | | | PDT | | results section. | + +--------+ + + + | MAGNESIUM, PLASMA | Routin | 11/09/2012 | | Results for this | | | e | 4:06 AM | | procedure are in the | | | | PDT | | results section. | + +--------+ + + + | CAPILLARY BLOOD | Routin | 11/09/2012 | | Results for this | | GLUCOSE (NO CHG), | e | 12:15 AM | | procedure are in the | | POC | | PDT | | results section. | + +--------+ + + + | CAPILLARY BLOOD | Routin | 11/08/2012 | | Results for this | | GLUCOSE (NO CHG), | e | 6:17 PM | | procedure are in the | | POC | | PDT | | results section. | + +--------+ + + + | CAPILLARY BLOOD | Routin | 11/08/2012 | | Results for this | | GLUCOSE (NO CHG), | e | 12:09 PM | | procedure are in the | | POC | | PDT | | results section. | + +--------+ + + + | CBC ONLY | Routin | 11/08/2012 | | Results for this | | | e | 7:48 AM | | procedure are in the | | | | PDT | | results section. | + +--------+ + + + | RENAL FUNCTION SET | Routin | 11/08/2012 | | Results for this | | (NA,K,CL,CO2,BUN,CRE | e | 7:48 AM | | procedure are in the | | AT,GLUC,CA,PHOS,ALB | | PDT | | results section. | | ) | | | | | + +--------+ + + + | CBC ONLY | Routin | 11/08/2012 | | Results for this | | | e | 7:48 AM | | procedure are in the | | | | PDT | | results section. | + +--------+ + + + | MAGNESIUM, PLASMA | Routin | 11/08/2012 | | Results for this | | | e | 7:48 AM | | procedure are in the | | | | PDT | | results section. | + +--------+ + + + | CAPILLARY BLOOD | Routin | 11/08/2012 | | Results for this | | GLUCOSE (NO CHG), | e | 5:58 AM | | procedure are in the | | POC | | PDT | | results section. | + +--------+ + + + | CAPILLARY BLOOD | Routin | 11/07/2012 | | Results for this | | GLUCOSE (NO CHG), | e | 11:53 PM | | procedure are in the | | POC | | PDT | | results section. | + +--------+ + + + | CAPILLARY BLOOD | Routin | 11/07/2012 | | Results for this | | GLUCOSE (NO CHG), | e | 6:25 PM | | procedure are in the | | POC | | PDT | | results section. | + +--------+ + + + | CBC ONLY | Urgent | 11/07/2012 | | Results for this | | | | 12:30 AM | | procedure are in the | | | | PDT | | results section. | + +--------+ + + + | RENAL FUNCTION SET | Urgent | 11/07/2012 | | Results for this | | (NA,K,CL,CO2,BUN,CRE | | 12:30 AM | | procedure are in the | | AT,GLUC,CA,PHOS,ALB | | PDT | | results section. | | ) | | | | | + +--------+ + + + | CBC ONLY | Urgent | 11/07/2012 | | Results for this | | | | 12:30 AM | | procedure are in the | | | | PDT | | results section. | + +--------+ + + + | MAGNESIUM, PLASMA | Routin | 11/07/2012 | | Results for this | | | e | 12:30 AM | | procedure are in the | | | | PDT | | results section. | + +--------+ + + + | X-RAY PORTABLE CHEST | Urgent | 11/06/2012 | | Results for this | | 1 VIEW | | 4:46 PM | | procedure are in the | | | | PDT | | results section. | + +--------+ + + + | X-RAY PORTABLE CHEST | Urgent | 11/06/2012 | | Results for this | | 1 VIEW | | 4:30 PM | | procedure are in the | | | | PDT | | results section. | + +--------+ + + + | CBC ONLY | Urgent | 11/06/2012 | | Results for this | | | | 3:50 PM | | procedure are in the | | | | PDT | | results section. | + +--------+ + + + | RENAL FUNCTION SET | Urgent | 11/06/2012 | | Results for this | | (NA,K,CL,CO2,BUN,CRE | | 3:50 PM | | procedure are in the | | AT,GLUC,CA,PHOS,ALB | | PDT | | results section. | | ) | | | | | + +--------+ + + + | CBC ONLY | Urgent | 11/06/2012 | | Results for this | | | | 3:50 PM | | procedure are in the | | | | PDT | | results section. | + +--------+ + + + | BLOOD GASES, | Urgent | 11/06/2012 | | Results for this | | ARTERIAL - LAB | | 3:50 PM | | procedure are in the | | | | PDT | | results section. | + +--------+ + + + | CAPILLARY BLOOD | Routin | 11/06/2012 | | Results for this | | GLUCOSE (NO CHG), | e | 2:56 PM | | procedure are in the | | POC | | PDT | | results section. | + +--------+ + + + | ABG-FULL ABL, POC | Routin | 11/06/2012 | Hernia | Results for this | | | e | 1:03 PM | | procedure are in the | | | | PDT | | results section. | + +--------+ + + + | LACTATE (ART), POC | Routin | 11/06/2012 | Hernia | Results for this | | ISTAT | e | 11:08 AM | | procedure are in the | | | | PDT | | results section. | + +--------+ + + + | HEMOGLOBIN-COOX, POC | Routin | 11/06/2012 | Hernia | Results for this | | | e | 11:08 AM | | procedure are in the | | | | PDT | | results section. | + +--------+ + + + | SODIUM, POC | Routin | 11/06/2012 | Hernia | Results for this | | | e | 11:08 AM | | procedure are in the | | | | PDT | | results section. | + +--------+ + + + | POTASSIUM, POC | Routin | 11/06/2012 | Hernia | Results for this | | | e | 11:08 AM | | procedure are in the | | | | PDT | | results section. | + +--------+ + + + | GLUCOSE, POC | Routin | 11/06/2012 | Hernia | Results for this | | | e | 11:08 AM | | procedure are in the | | | | PDT | | results section. | + +--------+ + + + | ARTERIAL BLOOD GAS, | Routin | 11/06/2012 | Hernia | Results for this | | POC | e | 11:08 AM | | procedure are in the | | | | PDT | | results section. | + +--------+ + + + | CHLORIDE, POC | Routin | 11/06/2012 | Hernia | Results for this | | | e | 11:08 AM | | procedure are in the | | | | PDT | | results section. | + +--------+ + + + | LEV IONIZED CA, POC | Routin | 11/06/2012 | Hernia | Results for this | | | e | 11:08 AM | | procedure are in the | | | | PDT | | results section. | + +--------+ + + + | EXPLORATORY | | 11/06/2012 | Incarcerated | | | LAPAROTOMY | | 10:29 AM | ventral hernia | | | | | PDT | | | + +--------+ + + + | CAPILLARY BLOOD | Routin | 11/06/2012 | | Results for this | | GLUCOSE (NO CHG), | e | 10:23 AM | | procedure are in the | | POC | | PDT | | results section. | + +--------+ + + + | CONFIRMATORY ABO/RH | Routin | 11/06/2012 | | Results for this | | | e | 9:30 AM | | procedure are in the | | | | PDT | | results section. | + +--------+ + + + | CBC AND AUTO DIFF | Routin | 11/06/2012 | | Results for this | | | e | 6:28 AM | | procedure are in the | | | | PDT | | results section. | + +--------+ + + + | CAPILLARY BLOOD | Routin | 11/06/2012 | | Results for this | | GLUCOSE (NO CHG), | e | 6:28 AM | | procedure are in the | | POC | | PDT | | results section. | + +--------+ + + + | INR | Routin | 11/06/2012 | | Results for this | | | e | 6:28 AM | | procedure are in the | | | | PDT | | results section. | + +--------+ + + + | CBC, WITH | Routin | 11/06/2012 | | Results for this | | DIFFERENTIAL | e | 6:28 AM | | procedure are in the | | | | PDT | | results section. | + +--------+ + + + | COMPLETE METABOLIC | Routin | 11/06/2012 | | Results for this | | SET | e | 6:28 AM | | procedure are in the | | (NA,K,CL,CO2,BUN,CRE | | PDT | | results section. | | AT,GLUC,CA,AST,ALT,B | | | | | | MARGIE TOTAL,ALK | | | | | | PHOS,ALB,PROT TOTAL) | | | | | + +--------+ + + + | ANTIBODY SCREEN | Routin | 11/06/2012 | | Results for this | | | e | 6:28 AM | | procedure are in the | | | | PDT | | results section. | + +--------+ + + + | TYPE AND SCREEN | Routin | 11/06/2012 | | Results for this | | | e | 6:28 AM | | procedure are in the | | | | PDT | | results section. | + +--------+ + + + | ABO & RH TYPE | Routin | 11/06/2012 | | Results for this | | | e | 6:28 AM | | procedure are in the | | | | PDT | | results section. | + +--------+ + + + | PHOSPHORUS, PLASMA | Routin | 11/06/2012 | | Results for this | | | e | 6:28 AM | | procedure are in the | | | | PDT | | results section. | + +--------+ + + + | MAGNESIUM, PLASMA | Routin | 11/06/2012 | | Results for this | | | e | 6:28 AM | | procedure are in the | | | | PDT | | results section. | + +--------+ + + + | 12 LEAD ECG | Routin | 11/06/2012 | | Results for this | | | e | 5:17 AM | | procedure are in the | | | | PDT | | results section. | + +--------+ + + + | UA, DIPSTICK ONLY | Routin | 11/06/2012 | | Results for this | | | e | 4:51 AM | | procedure are in the | | | | PDT | | results section. | + +--------+ + + + | URINE, MICROSCOPIC | Routin | 11/06/2012 | | Results for this | | EXAM | e | 4:51 AM | | procedure are in the | | | | PDT | | results section. | + +--------+ + + + documented in this encounter Results REPAIR, VENTRAL HERNIA, INCARCERATED, RECURRENT (08/30/2015 10:59 PM PST)EXPLORATORY LAPARO DERRICK (08/30/2015 10:59 PM PST)REPAIR, VENTRAL HERNIA, INCARCERATED, INITIAL (08/30/2015 10:5 9 PM PST)VASC LAB PORTABLE VENOUS DUPLEX LOWER EXTREMITY BILATERAL COMPLETE (11/12/2012 2:1 1 PM PDT) + + + + + + | Component | Value | Ref Range | Performed | Pathologist | | | | | At | Signature | + + + + + + | VASC LAB | BILATERAL LOWER | | | | | PORTABLE | EXTREMITY VENOUS DUPLEX | | | | | VENOUS | SCAN: 11/12/2012 | | | | | DUPLEX | Dictated 11/13/2012 | | | | | LOWER | CLINICAL INDICATION: | | | | | EXTREMITY | Pain. FINDINGS: The | | | | | BILATERAL | deep and superficial | | | | | COMPLETE | veins of both lower | | | | | | extremitieswere examined | | | | | | with the duplex | | | | | | scanner. There was | | | | | | normal phasic flowwith | | | | | | normal response to | | | | | | augmentation and | | | | | | compression throughout. | | | | | | IMPRESSION: Normal | | | | | | bilateral lower | | | | | | extremity venous duplex | | | | | | scan without evidencefor | | | | | | deep or superficial | | | | | | vein thrombosis. END | | | | | | IMPRESSION: Attending | | | | | | Radiologists: ,Author: | | | | | | SRIRAM BURCH MD I have | | | | | | personally viewed this | | | | | | procedure/exam, reviewed | | | | | | this report,and made | | | | | | changes to it where | | | | | | appropriate. | | | | | | Final/Electronically | | | | | | signed / SRIRAM BURCH | | | | | | Preliminary / Mae | | | | | | [place] | | | | + + + [...] + CAPILLARY BLOOD GLUCOSE (NO CHG), POC (11/12/2012 12:57 PM PDT) + +---------+ + + + | Component | Value | Ref Range | Performed | Pathologist | | | | | At | Signature | + +---------+ + + + | BLOOD | 109 (H) | 60 - 99 mg/dL | [...] [facility] | [address] | [place], [place] | | | [place], [facility] CARE | [address] | [address] | | | TESTS | | | | + + + + + CAPILLARY BLOOD GLUCOSE (NO CHG), POC (11/12/2012 9:08 AM PDT) + +---------+ + + + [...] [facility] | [address] | [place], [place] | | | [facility] | [facility] | [address] | | | TESTS | | | | + + + + + CBC (11/12/2012 3:56 AM PDT) + + + + + + | Component | Value | Ref Range | Performed | Pathologist | | | | | At | Signature | + + + + + + | WBC COUNT | 8.5 | 4.4 - 11.0 K/cu | [facility] | | | | | mm | LABORATORY | | [...] + + + + | HEMATOCRIT | 32.2 (L) | 36.0 - 46.0 % | [facility] | | | | | | LABORATORY | | | | | | SERVICES, | | | | | | CORE | | + + + + + + | MCV | 82.2 | 80.0 - 96.0 fL | [facility] | | | | | | LABORATORY | | | | | | SERVICES, | | | | | | CORE | | + + + + + + | MCHC | 32.2 (L) | 33.4 - 35.5 | [facility] | | | | | g/dL | LABORATORY | | | | | | SERVICES, | | | | | | CORE | | + + + + + + | RDW | 16.6 (H) | 11.5 - 15.0 % | [facility] | | | | | | LABORATORY | | | | | | SERVICES, | | | | | | CORE | | + + + + + + | PLATELET | 248 | 150 - 400 K/cu | [facility] [...] + | [facility] | [address] | [place] [address] | | | SERVICES, CORE | [address] | | | + + + + + RENAL FUNCTION SET (NA,K,CL,CO2,BUN,CREAT,GLUC,CA,PHOS,ALB ) (11/12/2012 3:56 AM PDT) + +---------+ + + + | Component | Value | Ref Range | Performed | Pathologist | | | | | At | Signature | + +---------+ + + + | GLUCOSE, | 113 (H) | 60 - 99 mg/dL | [...] | | | LABORATORY | | | [facility] | | | SERVICES, | | | [...] +---------+ + + + | POTASSIUM, | 4.1 | 3.4 - 5.0 | [facility] | | | PLASMA | | mmol/L | LABORATORY | | | (LAB) | | | SERVICES, | | | | | | CORE | | + +---------+ + + + | CHLORIDE, | 102 | 97 - 108 mmol/L | [facility] | | | PLASMA | | | LABORATORY | | | (LAB) | | | SERVICES, | | | | | | CORE | | + +---------+ + + + | TOTAL CO2, | 30 | 21 - 32 mmol/L | [facility] [...] +---------+ + + + | ALBUMIN, | 2.5 (L) | 3.5 - 4.7 g/dL | [facility] | | | PLASMA | | | LABORATORY | | | (LAB) | | | SERVICES, | | | | | | CORE | | + +---------+ + + + | PHOSPHORUS, | 3.3 | 2.4 - 4.7 mg/dL | [facility] | | | PLASMA [...] + + + | ANION GAP | 6 | mmol/L | [facility] | | | [...] | + + + + + | [facility] [employer] | [address] | [place] [address] | | | SERVICES, [place] | [address] | | | + + + + + MAGNESIUM, PLASMA (11/12/2012 3:56 AM PDT) + +-------+ + + + | Component | Value | Ref Range | Performed | Pathologist | | | | | At | Signature | + +-------+ + + + | MAGNESIUM,P | 1.8 | 1.8 - 2.5 mg/dL | [facility] [...] | + + + + + | [facility] | [address] | [place] [address] | | | LYDIA RANGEL | [address] | | | + + + + + CAPILLARY BLOOD GLUCOSE (NO CHG), POC (11/11/2012 9:49 PM PDT) + +---------+ + + + | Component | Value | Ref Range | Performed | Pathologist | | | | | At | Signature | + +---------+ + + + | BLOOD | 136 (H) | 60 - 99 mg/dL | [facility] - | | | GLUCOSE, | [...] [facility] | [address] | [place], [place] | | | [place] [facility] | [address] | [address] | | | TESTS | | | | + + + + + CAPILLARY BLOOD GLUCOSE (NO CHG), POC (11/11/2012 6:40 PM PDT) + +---------+ + + + | Component | Value | Ref Range | Performed | Pathologist | | | | | At | Signature | + +---------+ + + + | BLOOD | 114 (H) | 60 - 99 mg/dL | [...] [facility] | [address] | [place], [place] | | | [facility] | [facility] | [address] | | | TESTS | | | | + + + + + CAPILLARY BLOOD GLUCOSE (NO CHG) POC (11/11/2012 1:51 PM PDT) + +---------+ + + + | Component | Value | Ref Range | Performed | Pathologist | | | | | At | Signature | + +---------+ + + + | BLOOD | 100 (H) | 60 - 99 mg/dL | [...] - [facility] | [address] | [place], [place] | | | [facility] | [facility] | [address] | | | TESTS | | | | + + + + + CAPILLARY BLOOD GLUCOSE (NO CHG), POC (11/11/2012 1:13 PM PDT) + +---------+ + + + | Component | Value | Ref Range | Performed | Pathologist | | | | | At | Signature | + +---------+ + + + | BLOOD | 110 (H) | 60 - 99 mg/dL | [facility] - | | | GLUCOSE, | [...] [facility] | [address] | [place], [place] | | | [place] [facility] | [address] | [address] | | | TESTS | | | | + + + + + CAPILLARY BLOOD GLUCOSE (NO CHG), POC (11/11/2012 8:17 AM PDT) + +---------+ + + + | Component | Value | Ref Range | Performed | Pathologist | | | | | At | Signature | + +---------+ + + + | BLOOD | 110 (H) | 60 - 99 mg/dL | [...] [facility] | [address] | [place], [place] | | | [facility] | [facility] | [phone] | | | TESTS | | | | + + + + + CBC (11/11/2012 3:38 AM PDT) + + + + + + | Component | Value | Ref Range | Performed | Pathologist | | | | | At | Signature | + + + + + + | WBC COUNT | 7.2 | 4.4 - 11.0 K/cu | [facility] | | | | | mm | LABORATORY | | | | | | SERVICES, | | | | | | CORE | | + + + + + + | RED CELL | 3.82 (L) | 4.00 - 5.20 | [facility] | | | COUNT | | M/cu mm | LABORATORY | | | | | | SERVICES, | | | | | | CORE | | + + + + + + | HEMOGLOBIN | 10.1 (L) | 12.0 - 16.0 | [facility] | | | | | g/dL | LABORATORY | | | | | | SERVICES, | | | | | | CORE | | + + + + + + | HEMATOCRIT | 31.2 (L) | 36.0 - 46.0 % | [facility] | | | | | | LABORATORY | | | | | | SERVICES, | | | | | | CORE | | + + + + + + | MCV | 81.7 | 80.0 - 96.0 fL | [facility] | | | | | | LABORATORY | | | | | | SERVICES, | | | | | | CORE | | + + + + + + | MCHC | 32.5 (L) | 33.4 - 35.5 | [facility] | | | | | g/dL | LABORATORY | | | | | | SERVICES, | | | | | | CORE | | + + + + + + | RDW | 16.3 (H) | 11.5 - 15.0 % | [facility] | | | | | | LABORATORY | | | | | | SERVICES, | | | | | | CORE | | + + + + + + | PLATELET | 234 | 150 - 400 K/cu | [facility] [...] | + + + + + | [facility] | [address] | [place] [address] | | | LYDIA RANGEL | [address] | | | + + + + + RENAL FUNCTION SET (NA,K,CL,CO2,BUN,CREAT,GLUC,CA,PHOS,ALB ) (11/11/2012 3:38 AM PDT) + + + + + + | Component | Value | Ref Range | Performed | Pathologist | | | | | At | Signature | + + + + + + | GLUCOSE, | 88 | 60 - 99 mg/dL | [facility] | | | PLASMA | | | LABORATORY | | | (LAB) | | | SERVICES, | | | | | | CORE | | + + + + + + | BUN, PLASMA | 5 (L) | 6 - 20 mg/dL | [facility] | | | (LAB) | | | LABORATORY | | | | | | SERVICES, | | | | | | CORE | | + + + + + + | CREATININE | 0.55 (L) | 0.60 - 1.10 | [facility] | | | PLASMA | | mg/dL | LABORATORY | | | (LAB) | | | SERVICES, | | | | | | CORE | | + + + + + + | EGFR | >60 | >60 mL/min | [facility] | | | - | | | LABORATORY | | | [facility] | | | SERVICES, | | | | | | CORE | | + + + + + + | EGFR NON | >60 | >60 mL/min | [facility] | | | -[facility] | | | LABORATORY | | | [facility] | | | SERVICES, | | | | | | CORE | | + + + + + + | SODIUM, | 139 | 136 - 145 | [facility] | | | PLASMA | | mmol/L | LABORATORY | | | (LAB) | | | SERVICES, | | | | | | CORE | | + + + + + + | POTASSIUM, | 3.4 | 3.4 - 5.0 | [facility] | | | PLASMA | | mmol/L | LABORATORY | | | (LAB) | | | SERVICES, | | | | | | CORE | | + + + + + + | CHLORIDE, | 101 | 97 - 108 mmol/L | [facility] | | | PLASMA | | | LABORATORY | | | (LAB) | | | SERVICES, | | | | | | CORE | | + + + + + + | TOTAL CO2, | 32 | 21 - 32 mmol/L | [facility] | | | PLASMA | | | LABORATORY | | | (LAB) | | | SERVICES, | | | | | | CORE | | + + + + + + | CALCIUM, | 8.7 | 8.6 - 10.2 | [facility] | | | PLASMA | | mg/dL | LABORATORY | | | (LAB) | | | SERVICES, | | | | | | CORE | | + + + + + + | ALBUMIN, | 2.5 (L) | 3.5 - 4.7 g/dL | [facility] | | | PLASMA | | | LABORATORY | | | (LAB) | | | SERVICES, | | | | | | CORE | | + + + + + + | PHOSPHORUS, | 2.8 | 2.4 - 4.7 mg/dL | [facility] | | | PLASMA [...] + + + | ANION GAP | 6 | mmol/L | [facility] | | | | | | LABORATORY | | | | | | SERVICES, | | | | | | CORE | | + + + + + + | ANION | 9 [...] | + + + + + | [facility] | [address] | [place] [address] | | | SERVICES, CORE | [address] | | | + + + + + MAGNESIUM, PLASMA (11/11/2012 3:38 AM PDT) + +---------+ + + + | Component | Value | Ref Range | Performed | Pathologist | | | | | At | Signature | + +---------+ + + + | MAGNESIUM,P | 1.5 (L) | 1.8 - 2.5 mg/dL | [...] | + + + + + | [facility] | [address] | [place] [address] | | | SERVICES, CORE | [address] | | | + + + + + CAPILLARY BLOOD GLUCOSE (NO CHG), POC (11/10/2012 9:45 PM PDT) + +---------+ + + + | Component | Value | Ref Range | Performed | Pathologist | | | | | At | Signature | + +---------+ + + + | BLOOD | 103 (H) | 60 - 99 mg/dL | [...] [facility] | [address] | [place], [place] | | | [facility] | [address] | [address] | | | TESTS | | | | + + + + + CAPILLARY BLOOD GLUCOSE (NO CHG), POC (11/10/2012 4:27 PM PDT) + +-------+ + + + | Component | Value | Ref Range | Performed | Pathologist | | | | | At | Signature | + +-------+ + + + | BLOOD | 90 | 60 - 99 mg/dL | [facility] [...] | [facility] | [address] | [place], [place] | | | [facility] | [facility] | [address] | | | TESTS | | | | + + + + + CAPILLARY BLOOD GLUCOSE (NO CHG), POC (11/10/2012 12:39 PM PDT) + +-------+ + + + | Component | Value | Ref Range | Performed | Pathologist | | | | | At | Signature | + +-------+ + + + | BLOOD | 86 | 60 - 99 mg/dL | [facility] - | | | GLUCOSE, | | [...] [facility] | [address] | [place], [place] | | | [facility] | [address] | [address] | | | TESTS | | | | + + + + + CAPILLARY BLOOD GLUCOSE (NO CHG), POC (11/10/2012 9:54 AM PDT) + +---------+ + + + | Component | Value | Ref Range | Performed | Pathologist | | | | | At | Signature | + +---------+ + + + | BLOOD | 103 (H) | 60 - 99 mg/dL | [...] [facility] | [address] | [place], [place] | | | [facility] | [address] | [address] | | | TESTS | | | | + + + + + CAPILLARY BLOOD GLUCOSE (NO CHG), POC (11/10/2012 5:56 AM PDT) + +-------+ + + + | Component | Value | Ref Range | Performed | Pathologist | | | | | At | Signature | + +-------+ + + + | BLOOD | 90 | 60 - 99 mg/dL | [facility] [...] - [facility] | [address] | [place], [place] | | | [facility] | [facility] | [address] | | | TESTS | | | | + + + + + CBC (11/10/2012 3:40 AM PDT) + + + + + + | Component | Value | Ref Range | Performed | Pathologist | | | | | At | Signature | + + + + + + | WBC COUNT | 8.4 | 4.4 - 11.0 K/cu | [facility] | | | | | mm | LABORATORY | | | | | | SERVICES, | | | | | | CORE | | + + + + + + | RED CELL | 3.91 (L) | 4.00 - 5.20 | [facility] | | | COUNT | | M/cu mm | LABORATORY | | | | | | SERVICES, | | | | | | CORE | | + + + + + + | HEMOGLOBIN | 10.0 (L) | 12.0 - 16.0 | [facility] [...] + + + + | MCV | 82.3 | 80.0 - 96.0 fL | [facility] | | | | | | LABORATORY | | | | | | SERVICES, | | | | | | CORE | | + + + + + + | MCHC | 31.1 (L) | 33.4 - 35.5 | [facility] | | | | | g/dL | LABORATORY | | | | | | SERVICES, | | | | | | CORE | | + + + + + + | RDW | 16.7 (H) | 11.5 - 15.0 % | [facility] | | | | | | LABORATORY | | | | | | SERVICES, | | | | | | CORE | | + + + + + + | PLATELET | 231 | 150 - 400 K/cu | [facility] [...] [facility] | [address] | [place] [address] | | | SERVICES, CORE | [address] | | | + + + + + RENAL FUNCTION SET (NA,K,CL,CO2,BUN,CREAT,GLUC,CA,PHOS,ALB ) (11/10/2012 3:40 AM PDT) + + + + + + | Component | Value | Ref Range | Performed | Pathologist | | | | | At | Signature | + + + + + + | GLUCOSE, | 79 | 60 - 99 mg/dL | [facility] | | | PLASMA | | | LABORATORY | | | (LAB) | | | SERVICES, | | | | | | CORE | | + + + + + + | BUN, PLASMA | 6 | 6 - 20 mg/dL | [facility] | | | (LAB) | | | LABORATORY | | | | | | SERVICES, | | | | | | CORE | | + + + + + + | CREATININE | 0.51 (L) | 0.60 - 1.10 | [facility] | | | PLASMA | | mg/dL | LABORATORY | | | (LAB) | | | SERVICES, | | | | | | CORE | | + + + + + + | EGFR | >60 | >60 mL/min | [facility] | | | - | | | LABORATORY | | | [facility] | | | SERVICES, | | | | | | CORE | | + + + + + + | EGFR NON | >60 | >60 mL/min | [facility] | | | -RAJNI | | | LABORATORY | | | RICAN | | | SERVICES, | | | | | | CORE | | + + + + + + | SODIUM, | 141 | 136 - 145 | [facility] | | | PLASMA | | mmol/L | LABORATORY | | | (LAB) | | | SERVICES, | | | | | | CORE | | + + + + + + | POTASSIUM, | 3.4 | 3.4 - 5.0 | [facility] | | | PLASMA | | mmol/L | LABORATORY | | | (LAB) | | | SERVICES, | | | | | | CORE | | + + + + + + | CHLORIDE, | 101 | 97 - 108 mmol/L | [facility] [...] + + + + | CALCIUM, | 8.0 (L) | 8.6 - 10.2 | [facility] | | | PLASMA | | mg/dL | LABORATORY | | | (LAB) | | | SERVICES, | | | | | | CORE | | + + + + + + | ALBUMIN, | 2.5 (L) | 3.5 - 4.7 g/dL | [facility] | | | PLASMA | | | LABORATORY | | | (LAB) | | | SERVICES, | | | | | | CORE | | + + + + + + | PHOSPHORUS, | 2.4 | 2.4 - 4.7 mg/dL | [facility] | | | PLASMA [...] | + + + + + | [facility] | [address] | [place] [address] | | | SERVICES, CORE | [address] | | | + + + + + MAGNESIUM, PLASMA (11/10/2012 3:40 AM PDT) + +---------+ + + + | Component | Value | Ref Range | Performed | Pathologist | | | | | At | Signature | + +---------+ + + + | MAGNESIUM,P | 1.5 (L) | 1.8 - 2.5 mg/dL | [facility] | [address] | [place] [address] | | | SERVICES, CORE | [address] | | | + + + + + CAPILLARY BLOOD GLUCOSE (NO CHG), POC (11/09/2012 11:26 PM PDT) + +-------+ + + + | Component | Value | Ref Range | Performed | Pathologist | | | | | At | Signature | + +-------+ + + + | BLOOD | 92 | 60 - 99 mg/dL | [facility] [...] - [facility] | [address] | [place], [place] | | | [facility] | [address] | [address] | | | TESTS | | | | + + + + + CAPILLARY BLOOD GLUCOSE (NO CHG), POC (11/09/2012 6:08 PM PDT) + +-------+ + + + [...] [facility] | [address] | [place], [place] | | | [facility] | [address] | [address] | | | TESTS | | | | + + + + + CAPILLARY BLOOD GLUCOSE (NO CHG), POC (11/09/2012 12:19 PM PDT) + +-------+ + + + | Component | Value | Ref Range | Performed | Pathologist | | | | | At | Signature | + +-------+ + + + | BLOOD | 81 | 60 - 99 mg/dL | [facility] [...] [facility] | [address] | [place], [place] | | | [facility] | [address] | [address] | | | TESTS | | | | + + + + + CULTURE, URINE BACTI (11/09/2012 8:43 AM PDT) + + + + + + | Component | Value | Ref Range | Performed | Pathologist | | | | | At | Signature | + + + + + + | SPECIMEN | Urine | | [facility] | | | TYPE | | | [facility] | | | | | | [place] | | + + + + + + | SOURCE BODY | Urine | | [facility] - | | | SITE | | | [facility] - | | | | | | [place] | | + + + + + + | CULTURE | C UrineSource: Urine | | [facility] - | | | RESULT | | | [facility] - | | | | Final CULTURE | | [place] | | | | RESULT:>100,000 cfu/ml | | | | | | Escherichia coli 25,000 | | | | | | cfu/ml Insignificant | | | | | | growth | | | | | | ORGANISM:..............E | | | | | | scherichia | | | | | | coliAmpicillin | | | | | | SCefazolin | | | | | | | | | | | | SCiprofloxacin | | | | | | SGentamicin | | | | | | | | | | | | SNitrofurantoin | | | | | | STobramycin | | | | | | STetracycline | | | | | | | | | | | | STrimethoprim/Sulfa | | | | | | S | | | | + + + + + + + + | Specimen | + + | Urine - Urine | + + + + + + + | Performing | Address | City/State/Zipcode | Phone Number | | Organization | | | | + + + + + | [facility] | [address] | [place] [address] | | | [place] | | | | + + + + + MADAY CEDILLO ONLY (11/09/2012 6:57 AM PDT) + + + + + + | Component | Value | Ref Range | Performed | Pathologist | | | | | At | Signature | + + + + + + | COLOR(UR) | Yellow | (none) | [facility] | | | | | | LABORATORY | | | | | | SERVICES, | | | | | | CORE | | + + + + + + | APPEARANCE | Turbid | (none) | [facility] | | | | | [...] + + + + | BLOOD | Moderate (A) | Negative | [facility] | | | | | | LABORATORY | | | | | | SERVICES, | | | | | | CORE | | + + + + + + | KETONES | 20.0 (A) | Negative mg/dL | [facility] | | | | | | LABORATORY | | | | | | SERVICES, | | | | | | CORE | | + + + + + + | NITRITES | Positive (A) | Negative | [facility] | | | | | | LABORATORY | | | | | | SERVICES, | | | | | | CORE | | + + + + + + | LEUKOCYTE | Large (A) | Negative | [facility] | | | ESTERASE | | | LABORATORY | | | | | | SERVICES, | | | | | | CORE | | + + + + + + | SPECIFIC | 1.009 | 1.005 - 1.030 | [facility] | | | GRAVITY | | | LABORATORY | | | | | | SERVICES, | | | | | | CORE | | + + + + + + + + | Specimen | + + | Urine - Urine | + + + + + + + | Performing | Address | City/State/Zipcode | Phone Number | | Organization | | | | + + + + + | [facility] | [address] | [place] [address] | | | SERVICES, CORE | [address] | | | + + + + + URINE, MICROSCOPIC EXAM (11/09/2012 6:57 AM PDT) + + + + + + | Component | Value | Ref Range | Performed | Pathologist | | | | | At | Signature | + + + + + + | RED CELLS | 53 (H) | 0 - 3 /hpf | [facility] | | | | | | LABORATORY | | | | | | SERVICES, | | | | | | CORE | | + + + + + + | WHITE CELLS | >1000 (H) | 0 - 5 /hpf | [facility] | | | | | | LABORATORY | | | | | | SERVICES, | | | | | | CORE | | + + + + + + | WBC CLUMPS | Present | (none) | [facility] | | | | | [...] + + + + | MUCOUS | Few (A) | None /hpf | [...] + + | Urine - Urine | + + + + + + + | Performing | Address | City/State/Zipcode | Phone Number | | Organization | | | | + + + + + | [facility] | [address] | [place] [address] | | | SERVICES, CORE | [address] | | | + + + + + CAPILLARY BLOOD GLUCOSE (NO CHG), POC (11/09/2012 6:10 AM PDT) + +-------+ + + + | Component | Value | Ref Range | Performed | Pathologist | | | | | At | Signature | + +-------+ + + + | BLOOD | 90 | 60 - 99 mg/dL | [facility] - | | | GLUCOSE, | [...] [facility] | [address] | [place], [place] | | | [facility] | [facility] | [address] | | | TESTS | | | | + + + + + RENAL FUNCTION SET (NA,K,CL,CO2,BUN,CREAT,GLUC,CA,PHOS,ALB ) (11/09/2012 4:06 AM PDT) + +---------+ + + + | Component | Value | Ref Range | Performed | Pathologist | | | | | At | Signature | + +---------+ + + + | GLUCOSE, | 88 | 60 - 99 mg/dL [...] +---------+ + + + | CREATININE | 0.60 | 0.60 - 1.10 | [facility] | | | PLASMA | | mg/dL | LABORATORY | | | (LAB) | | | SERVICES, | | | | | | CORE | | + +---------+ + + + | EGFR | >60 | >60 mL/min | [facility] | | | - | | | LABORATORY | | | [facility] | | | SERVICES, | | | [...] +---------+ + + + | POTASSIUM, | 3.3 (L) | 3.4 - 5.0 | [facility] [...] + + + | TOTAL CO2, | 34 (H) | 21 - 32 mmol/L | [facility] [...] | + +---------+ + + + | PHOSPHORUS, | 2.2 (L) | 2.4 - 4.7 mg/dL | [facility] | | | PLASMA [...] [facility] | [address] | [place] [address] | | | SERVICES, CORE | [address] | | | + + + + + CBC (11/09/2012 4:06 AM PDT) + + + + + + | Component | Value | Ref Range | Performed | Pathologist | | | | | At | Signature | + + + + + + | WBC COUNT | 11.9 (H) | 4.4 - 11.0 K/cu | [facility] | | | | | mm | LABORATORY | | [...] + + + + | HEMOGLOBIN | 11.2 (L) | 12.0 - 16.0 | [facility] | | | | | g/dL | LABORATORY | | | | | | SERVICES, | | | | | | CORE | | + + + + + + | HEMATOCRIT | 35.5 (L) | 36.0 - 46.0 % | [facility] | | | | | | LABORATORY | | | | | | SERVICES, | | | | | | CORE | | + + + + + + | MCV | 82.4 | 80.0 - 96.0 fL | [facility] | | | | | | LABORATORY | | | | | | SERVICES, | | | | | | CORE | | + + + + + + | MCHC | 31.6 (L) | 33.4 - 35.5 | [facility] | | | | | g/dL | LABORATORY | | | | | | SERVICES, | | | | | | CORE | | + + + + + + | RDW | 16.5 (H) | 11.5 - 15.0 % | [facility] | | | | [...] | + + + + + | [facility] | [address] | [place] [address] | | | SERVICES, CORE | [address] | | | + + + + + MAGNESIUM, PLASMA (11/09/2012 4:06 AM PDT) + +---------+ + + + | Component | Value | Ref Range | Performed | Pathologist | | | | | At | Signature | + +---------+ + + + | MAGNESIUM,P | 1.2 (L) | 1.8 - 2.5 mg/dL | [facility] [...] | + + + + + | [facility] | [address] | [place] [address] | | | SERVICES, CORE | [address] | | | + + + + + CAPILLARY BLOOD GLUCOSE (NO CHG), POC (11/09/2012 12:15 AM PDT) + +-------+ + + + | Component | Value | Ref Range | Performed | Pathologist | | | | | At | Signature | + +-------+ + + + | BLOOD | 86 | 60 - 99 mg/dL | [facility] [...] + + | Performing | Address | City/State/Rustcode | Phone Number | | Organization | | | | + + + + + | [facility] | [address] | [place], [place] | | | [facility] | [address] | [address] | | | TESTS | | | | + + + + + CAPILLARY BLOOD GLUCOSE (NO CHG), POC (11/08/2012 6:17 PM PDT) + +-------+ + + + | Component | Value | Ref Range | Performed | Pathologist | | | | | At | Signature | + +-------+ + + + | BLOOD | 84 | 60 - 99 mg/dL | [facility] [...] [facility] | [address] | [place], [place] | | | [facility] | [facility] | [address] | | | TESTS | | | | + + + + + CAPILLARY BLOOD GLUCOSE (NO CHG), POC (11/08/2012 12:09 PM PDT) + +-------+ + + + | Component | Value | Ref Range | Performed | Pathologist | | | | | At | Signature | + +-------+ + + + | BLOOD | 97 | 60 - 99 mg/dL | [facility] - | | | GLUCOSE, | [...] + + | [facility] | [address] | [place], [place] | | | [facility] | [address] | [address] | | | TESTS | | | | + + + + + CBC (11/08/2012 7:48 AM PDT) + + + + + + | Component | Value | Ref Range | Performed | Pathologist | | | | | At | Signature | + + + + + + | WBC COUNT | 9.6 | 4.4 - 11.0 K/cu | [facility] | | | | | mm | LABORATORY | | | | | | SERVICES, | | | | | | CORE | | + + + + + + | RED CELL | 4.00 | 4.00 - 5.20 | [facility] | | | COUNT | | M/cu mm | LABORATORY | | | | | | SERVICES, | | | | | | CORE | | + + + + + + | HEMOGLOBIN | 10.5 (L) | 12.0 - 16.0 | [facility] | | | | | g/dL | LABORATORY | | | | | | SERVICES, | | | | | | CORE | | + + + + + + | HEMATOCRIT | 33.1 (L) | 36.0 - 46.0 % | [facility] | | | | | | LABORATORY | | | | | | SERVICES, | | | | | | CORE | | + + + + + + | MCV | 82.8 | 80.0 - 96.0 fL | [facility] | | | | | | LABORATORY | | | | | | SERVICES, | | | | | | CORE | | + + + + + + | MCHC | 31.6 (L) | 33.4 - 35.5 | [facility] | | | | | g/dL | LABORATORY | | | | | | SERVICES, | | | | | | CORE | | + + + + + + | RDW | 16.5 (H) | 11.5 - 15.0 % | [facility] | | | | | | LABORATORY | | | | | | SERVICES, | | | | | | CORE | | + + + + + + | PLATELET | 218 | 150 - 400 K/cu | [facility] [...] | + + + + + | [facility] | [address] | [place] [address] | | | SERVICES, CORE | [address] | | | + + + + + MAGNESIUM, PLASMA (11/08/2012 7:48 AM PDT) + +---------+ + + + | Component | Value | Ref Range | Performed | Pathologist | | | | | At | Signature | + +---------+ + + + | MAGNESIUM,P | 1.4 (L) | 1.8 - 2.5 mg/dL | [...] | + + + + + | [facility] | [address] | [place] [address] | | | SERVICES, LYD[place] | [address] | | | + + + + + RENAL FUNCTION SET (NA,K,CL,CO2,BUN,CREAT,GLUC,CA,PHOS,ALB ) (11/08/2012 7:48 AM PDT) + +---------+ + + + | Component | Value | Ref Range | Performed | Pathologist | | | | | At | Signature | + +---------+ + + + | GLUCOSE, | 90 | 60 - 99 mg/dL | [facility] | | | PLASMA | | | LABORATORY | | | (LAB) | | | SERVICES, | | | | | | CORE | | + +---------+ + + + | BUN, PLASMA | 6 | 6 - 20 mg/dL | [facility] | | | (LAB) | | | LABORATORY | | | | | | SERVICES, | | | | | | CORE | | + +---------+ + + + | CREATININE | 0.64 | 0.60 - 1.10 | [facility] | | | PLASMA | | mg/dL | LABORATORY | | | (LAB) | | | SERVICES, | | | | | | CORE | | + +---------+ + + + | EGFR | >60 | >60 mL/min | [facility] | | | - | | | LABORATORY | | | [facility] | | | SERVICES, | | | [...] +---------+ + + + | CHLORIDE, | 103 | 97 - 108 mmol/L | [facility] | | | PLASMA | | | LABORATORY | | | (LAB) | | | SERVICES, | | | | | | CORE | | + +---------+ + + + | TOTAL CO2, | 33 (H) | 21 - 32 mmol/L | [facility] | | | PLASMA | | | LABORATORY | | | (LAB) | | | SERVICES, | | | | | | CORE | | + +---------+ + + + | CALCIUM, | 7.8 (L) | 8.6 - 10.2 | [facility] [...] | + +---------+ + + + | PHOSPHORUS, | 2.4 | 2.4 - 4.7 mg/dL | [facility] | | | PLASMA [...] the MDRD equation recommended by the | [facility] | | National Kidney Disease Education [...] | + + + + + | [facility] | [address] | [place] [address] | | | [facility] | [address] | | | + + + + + CAPILLARY BLOOD GLUCOSE (NO CHG), POC (11/08/2012 5:58 AM PDT) + +-------+ + + + | Component | Value | Ref Range | Performed | Pathologist | | | | | At | Signature | + +-------+ + + + | BLOOD | 92 | 60 - 99 mg/dL | [facility] - | | | GLUCOSE, | [...] [facility] | [address] | [place], [place] | | | [facility] | [address] | [address] | | | TESTS | | | | + + + + + CAPILLARY BLOOD GLUCOSE (NO CHG), POC (11/07/2012 11:53 PM PDT) + +-------+ + + + [...] + + | Performing | Address | City/State/Rustcode | Phone Number | | Organization | | | | + + + + + | [facility] | [address] | [place], [place] | | | [facility] | [address] | [address] | | | TESTS | | | | + + + + + CAPILLARY BLOOD GLUCOSE (NO CHG), POC (11/07/2012 6:25 PM PDT) + +-------+ + + + | Component | Value | Ref Range | Performed | Pathologist | | | | | At | Signature | + +-------+ + + + | BLOOD | 82 | 60 - 99 mg/dL | [facility] [...] [facility] | [address] | [place], [place] | | | [facility] | [facility] | [address] | | | TESTS | | | | + + + + + CBC (11/07/2012 12:30 AM PDT) + + + + + + | Component | Value | Ref Range | Performed | Pathologist | | | | | At | Signature | + + + + + + | WBC COUNT | 13.6 (H) | 4.4 - 11.0 K/cu | [facility] | | | | | mm | LABORATORY | | | | | | SERVICES, | | | | | | CORE | | + + + + + + | RED CELL | 4.02 | 4.00 - 5.20 | [facility] | | | COUNT | | M/cu mm | LABORATORY | | | | | | SERVICES, | | | | | | CORE | | + + + + + + | HEMOGLOBIN | 10.6 (L) | 12.0 - 16.0 | [facility] | | | | | g/dL | LABORATORY | | | | | | SERVICES, | | | | | | CORE | | + + + + + + | HEMATOCRIT | 33.1 (L) | 36.0 - 46.0 % | [facility] | | | | | | LABORATORY | | | | | | SERVICES, | | | | | | CORE | | + + + + + + | MCV | 82.3 | 80.0 - 96.0 fL | [facility] | | | | | | LABORATORY | | | | | | SERVICES, | | | | | | CORE | | + + + + + + | MCHC | 32.1 (L) | 33.4 - 35.5 | [facility] | | | | | g/dL | LABORATORY | | | | | | SERVICES, | | | | | | CORE | | + + + + + + | RDW | 17.3 (H) | 11.5 - 15.0 % | [facility] | | | | | | LABORATORY | | | | | | SERVICES, | | | | | | CORE | | + + + + + + | PLATELET | 237 | 150 - 400 K/cu | [facility] [...] | + + + + + | [facility] | [address] | [place] [address] | | | SERVICES, CORE | [address] | | | + + + + + MAGNESIUM, PLASMA (11/07/2012 12:30 AM PDT) + +---------+ + + + | Component | Value | Ref Range | Performed | Pathologist | | | | | At | Signature | + +---------+ + + + | MAGNESIUM,P | 1.7 (L) | 1.8 - 2.5 mg/dL | [facility] | | | LASMA | | | [...] [facility] | [address] | [place] [address] | | | SERVICES, CORE | [address] | | | + + + + + RENAL FUNCTION SET (NA,K,CL,CO2,BUN,CREAT,GLUC,CA,PHOS,ALB ) (11/07/2012 12:30 AM PDT) + +---------+ + + + | Component | Value | Ref Range | Performed | Pathologist | | | | | At | Signature | + +---------+ + + + | GLUCOSE, | 120 (H) | 60 - 99 mg/dL | [...] +---------+ + + + | CREATININE | 0.62 | 0.60 - 1.10 | [facility] | | | PLASMA | | mg/dL | LABORATORY | | | (LAB) | | | SERVICES, | | | | | | CORE | | + +---------+ + + + | EGFR | >60 | >60 mL/min | [facility] | | | - | | | LABORATORY | | | [facility] | | | SERVICES, | | | [...] +---------+ + + + | ALBUMIN, | 2.8 (L) | 3.5 - 4.7 g/dL | [facility] | | | PLASMA | | | LABORATORY | | | (LAB) | | | SERVICES, | | | | | | CORE | | + +---------+ + + + | PHOSPHORUS, | 2.6 | 2.4 - 4.7 mg/dL | [facility] | | | PLASMA [...] | + + + + + | [facility] | [address] | [place] [address] | | | [facility] | [address] | | | + + + + + X-RAY PORTABLE CHEST 1 VIEW (11/06/2012 4:46 PM PDT) + + + + + + | Component | Value | Ref Range | Performed | Pathologist | | | | | At | Signature | + + + + + + | X-RAY | STUDY: [place] CHEST 1 VIEW | | | | | PORTABLE | 11/06/12 16:46:00 | | | | | CHEST 1 | INDICATION: Right upper | | | | | VIEW | lobe opacity. | | | | | | COMPARISON: Earlier same | | | | | | day a STUDY: [place] CHEST 1 | | | | | | VIEW 11/07/1315:46:00 | | | | | | COMPARISON: None. | | | | | | FINDINGS: Lung volumes | | | | | | remain low. There is | | | | | | persistent right upper | | | | | | lobecollapse, with | | | | | | elevation of the right | | | | | | minor fissure. There | | | | | | is mildindistinctness of | | | | | | the pulmonary | | | | | | vasculature, suggestive | | | | | | of developingmild | | | | | | hydrostatic edema. No | | | | | | definite pleural | | | | | | effusion is seen. | | | | | | Nopneumothorax. | | | | | | IMPRESSION: Low lung | | | | | | volumes with persistent | | | | | | right upper lobe | | | | | | collapse,presumably due | | | | | | to mucous plugging. | | | | | | Suspected developing | | | | | | hydrostatic edema. | | | | | | Attending Radiologists: | | | | | | ANA DE LA FUENTE | | | | | | MDAuthor: ANA | | | | | | MD SUDHAKAR I have | | | | | | personally viewed this | | | | | | procedure/exam, reviewed | | | | | | this report,and made | | | | | | changes to it where | | | | | | appropriate. | | | | | | Final/Electronically | | | | | | signed / ANA | | | | | | SUDHAKAR 11/06/2012 | | | | | | 22:19 PM | | | | + + [...] | | + +---------+ + + X-RAY PORTABLE CHEST 1 VIEW (11/06/2012 4:30 PM PDT) + + + + + + | Component | Value | Ref Range | Performed | Pathologist | | | | | At | Signature | + + + + + + | X-RAY | STUDY: [place] CHEST 1 VIEW | | | | | PORTABLE | 11/06/12 16:30:00 | | | | | CHEST 1 | INDICATION: Line | | | | | VIEW | placement. COMPARISON: | | | | | | Outside radiograph | | | | | | earlier same day. | | | | | | FINDINGS: Endotracheal | | | | | | tube tip is 1.8 cm above | | | | | | the gabriel. An | | | | | | enteric tubecourses | | | | | | below the diaphragm with | | | | | | side hole in the region | | | | | | of thegastric fundus | | | | | | and distal tip not | | | | | | imaged. There is a | | | | | | right internaljugular | | | | | | central venous catheter | | | | | | with tip projecting in | | | | | | the region ofthe | | | | | | cavoatrial junction. | | | | | | The lung volumes have | | | | | | decreased. There jessica | | | | | | triangular right upper | | | | | | lobe opacity with | | | | | | superior elevation of | | | | | | theright minor fissure. | | | | | | The appearance is | | | | | | compatible with right | | | | | | upperlobe collapse. | | | | | | This abnormality is | | | | | | new when compared to | | | | | | theradiograph from | | | | | | yesterday. No pleural | | | | | | effusion or pneumothorax | | | | | | isseen. IMPRESSION: 1. | | | | | | Support equipment as | | | | | | described. No | | | | | | pneumothorax. 2. Right | | | | | | upper lobe collapse, | | | | | | presumably related to | | | | | | mucous plugging. This | | | | | | abnormality is new | | | | | | compared to yesterday. | | | | | | 3. Low lung volumes. | | | | | | Attending Radiologists: | | | | | | ANA DE LA FUENTE, | | | | | | MDAuthor: ANA | | | | | | MD SUDHAKAR I have | | | | | | personally viewed this | | | | | | procedure/exam, reviewed | | | | | | this report,and made | | | | | | changes to it where | | | | | | appropriate. | | | | | | Final/Electronically | | | | | | signed / ANA | | | | | | SUDHAKAR 11/06/2012 | | | | | | 22:17 PM | | | | + + [...] | | + +---------+ + + CBC (11/06/2012 3:50 PM PDT) + + + + + + | Component | Value | Ref Range | Performed | Pathologist | | | | | At | Signature | + + + + + + | WBC COUNT | 17.2 (H) | 4.4 - 11.0 K/cu | [facility] | | | | | mm | LABORATORY | | | | | | SERVICES, | | | | | | CORE | | + + + + + + | RED CELL | 4.28 | 4.00 - 5.20 | [facility] | | | COUNT | | M/cu mm | LABORATORY | | | | | | SERVICES, | | | | | | CORE | | + + + + + + | HEMOGLOBIN | 11.2 (L) | 12.0 - 16.0 | [facility] | | | | | g/dL | LABORATORY | | | | | | SERVICES, | | | | | | CORE | | + + + + + + | HEMATOCRIT | 35.0 (L) | 36.0 - 46.0 % | [facility] | | | | | | LABORATORY | | | | | | SERVICES, | | | | | | CORE | | + + + + + + | MCV | 82.0 | 80.0 - 96.0 fL | [facility] | | | | | | LABORATORY | | | | | | SERVICES, | | | | | | CORE | | + + + + + + | MCHC | 32.1 (L) | 33.4 - 35.5 | [facility] | | | | | g/dL | LABORATORY | | | | | | SERVICES, | | | | | | CORE | | + + + + + + | RDW | 17.6 (H) | 11.5 - 15.0 % | [facility] | | | | | | LABORATORY | | | | | | SERVICES, | | | | | | CORE | | + + + + + + | PLATELET | 270 | 150 - 400 K/cu | [facility] [...] [facility] | [address] | [place] [address] | | | SERVICES, CORE | [address] | | | + + + + + RENAL FUNCTION SET (NA,K,CL,CO2,BUN,CREAT,GLUC,CA,PHOS,ALB ) (11/06/2012 3:50 PM PDT) + +---------+ + + + | Component | Value | Ref Range | Performed | Pathologist | | | | | At | Signature | + +---------+ + + + | GLUCOSE, | 120 (H) | 60 - 99 mg/dL | [...] +---------+ + + + | CREATININE | 0.67 | 0.60 - 1.10 | [facility] | | | PLASMA | | mg/dL | LABORATORY | | | (LAB) | | | SERVICES, | | | | | | CORE | | + +---------+ + + + | EGFR | >60 | >60 mL/min | [facility] | | | - | | | LABORATORY | | | [facility] | | | SERVICES, | | | [...] | + +---------+ + + + | PHOSPHORUS, | 3.0 | 2.4 - 4.7 mg/dL | [facility] | | | PLASMA [...] | + + + + + | [facility] | [address] | [place] [address] | | | SERVICES, CORE | [address] | | | + + + + + BLOOD GASES, ARTERIAL - LAB (11/06/2012 3:50 PM PDT) + + + + + + | Component | Value | Ref Range | Performed | Pathologist | | | | | At | Signature | + + + + + + | PAT TEMP | 36.9 | Degree C | [facility] | | | ARTERIAL | | | LABORATORY | | | | | | SERVICES, | | | | | | CORE | | + + + + + + | FIO2 | 60 | | [facility] | | | ARTERIAL | | | LABORATORY | | | | | | SERVICES, | | | | | | CORE | | + + + + + + | PH ARTERIAL | 7.33 (L) | 7.37 - 7.44 | [facility] | | | | | | LABORATORY | | | | | | SERVICES, | | | | | | CORE | | + + + + + + | PCO2 | 49 (H) | 32 - 43 mmHg | [facility] | | | ARTERIAL | | | LABORATORY | | | | | | SERVICES, | | | | | | CORE | | + + + + + + | PO2 | 113 (H) | 83 - 108 mmHg | [facility] | | | ARTERIAL | | | LABORATORY | | | | | | SERVICES, | | | | | | CORE | | + + + + + + | HCO3 | 25 | 21 - 28 mmol/L | [facility] | | | ARTERIAL | | | LABORATORY | | | | | | SERVICES, | | | | | | CORE | | + + + + + + | TOTAL CO2 | 26 | 22 - 28 mmol/L | [facility] | | | ARTERIAL | | | LABORATORY | | | | | | SERVICES, | | | | | | CORE | | + + + + + + | BASE EXCESS | -0.9 | | [facility] | | | ARTERIAL | | | LABORATORY | | | | | | SERVICES, | | | | | | CORE | | + + + + + + | O2 SAT, | 98.3 (H) | 92.0 - 98.0 | [facility] | | | ARTERIAL | | | LABORATORY | | | [...] [facility] | [address] | [place] [address] | | | SERVICES, CORE | [address] | | | + + + + + CAPILLARY BLOOD GLUCOSE (NO CHG), POC (11/06/2012 2:56 PM PDT) + +---------+ + + + | Component | Value | Ref Range | Performed | Pathologist | | | | | At | Signature | + +---------+ + + + | BLOOD | 132 (H) | 60 - 99 mg/dL | [...] [facility] | [address] | [place], [place] | | | [facility] | [facility] | [address] | | | TESTS | | | | + + + + + ABG SOR POC (11/06/2012 1:03 PM PDT) + + + + + + | Component | Value | Ref Range | Performed | Pathologist | | | | | At | Signature | + + + + + + | OSMOLALITY | 290.4 | 275 - 295 | [facility] | | | ARTERIAL, | | mmol/kg | [facility] | | | POC | | | [facility] | | | | | | OF CARE | | | | | | TESTS | | + + + + + + | PH | 7.43 | 7.37 - 7.44 | [facility] - | | | ARTERIAL, | | | [facility] | | | POC | | | [facility] | | | | | | OF CARE | | | | | | TESTS | | + + + + + + | PO2 | 130 (H) | 83 - 108 mmHg | [facility] - | | | ARTERIAL, | | | [facility] | | | POC | | | [facility] | | | | | | OF CARE | | | | | | TESTS | | + + + + + + | PCO2 | 36 | 32 - 43 mmHg | [facility] - | | | ARTERIAL, | | | [facility] | | | POC | | | [facility] | | | | | | OF CARE | | | | | | TESTS | | + + + + + + | TOTAL | 12.2 | 12.0 - 16.0 | [facility] - | | | HEMOGLOBIN, | | g/dL | [facility] | | | POC | | | [facility] | | | | | | OF CARE | | | | | | TESTS | | + + + + + + | O2 SAT | 99.8 (H) | 92.0 - 98.0 % | [facility] - | | | ARTERIAL, | | | [facility] | | | POC | | | [facility] | | | | | | OF CARE | | | | | | TESTS | | + + + + + + | OXYHEMOGLOB | 97.0 | 94.0 - 100 % | [facility] - | | | IN, POC | | | [facility] | | | | | | [facility] | | | | | | OF CARE | | | | | | TESTS | | + + + + + + | CARBOXYHEMO | 2.0 (H) | 0.0 - 1.5 % | [facility] - | | | GLOBIN, POC | | | [facility] | | | | | | [facility] | | | | | | OF CARE | | | | | | TESTS | | + + + + + + | DEOXYHEMOGL | 0.2 | | [facility] - | | | OBIN, POC | | | [facility] | | | | | | [facility] | | | | | | OF CARE | | | | | | TESTS | | + + + + + + | METHEMOGLOB | 0.8 | 0.0 - 1.9 % | [facility] - | | | IN, POC | | | [facility] | | | | | | [place] | | | | | | OF CARE | | | | | | TESTS | | + + + + + + | HEMATOCRIT, | 37.3 | 36.0 - 46.0 % | [facility] - | | | POC | | | [facility] | | | | | | [place] | | | | | | OF CARE | | | | | | TESTS | | + + + + + + | POTASSIUM, | 3.2 (L) | 3.4 - 5.0 | [facility] - | | | POC | | mmol/L | [facility] | | | | | | [place] | | | | | | OF CARE | | | | | | TESTS | | + + + + + + | SODIUM, POC | 142 | 134 - 143 | [facility] - | | | | | mmol/L | [facility] | | | | | | [facility] | | | | | | OF CARE | | | | | | TESTS | | + + + + + + | LEV | 1.17 | 1.14 - 1.32 | [facility] - | | | IONIZED CA, | | mmol/L | [facility] | | | POC | | | [facility] | | | | | | OF CARE | | | | | | TESTS | | + + + + + + | CHLORIDE, | 109 (H) | 97 - 108 mmol/L | [facility] - | | | POC | | | [facility] | | | | | | [facility] | | | | | | OF CARE | | | | | | TESTS | | + + + + + + | GLUCOSE, | 122 (H) | 60 - 99 mg/dL | [facility] - | | | POC | | | [facility] | | | | | | [facility] | | | | | | OF CARE | | | | | | TESTS | | + + + + + + | HCO3 | 23.8 | 21 - 28 mmol/L | [facility] - | | | ARTERIAL, | | | [facility] | | | POC | | | [facility] | | | | | | OF CARE | | | | | | TESTS | | + + + + + + | BASE EXCESS | -0.6 | | [facility] - | | | ARTERIAL, | | | [facility] | | | POC | | | [place] | | | | | | OF CARE | | | | | | TESTS | | + + + + + + | LACTATE POC | 0.9 | 0.5 - 1.6 | [facility] - | | | | [...] [facility] | [address] | [place], [place] | | | [facility] | [facility] | [address] | | | TESTS | | | | + + + + + LACTATE (ART), POC SOR (11/06/2012 11:08 AM PDT) + +-------+ + + + | Component | Value | Ref Range | Performed | Pathologist | | | | | At | Signature | + +-------+ + + + | LACTATE POC | 0.6 | 0.5 - 1.6 | [facility] - | | | | | mmol/L | [facility] | | | | | [...] [facility] | [address] | [place], [place] | | | [facility] | [facility] | [address] | | | TESTS | | | | + + + + + SODIUM (ART), POC SOR (11/06/2012 11:08 AM PDT) + +-------+ + + + | Component | Value | Ref Range | Performed | Pathologist | | | | | At | Signature | + +-------+ + + + | SODIUM, POC | [...] [facility] | [address] | [place], [place] | | | [facility] [facility] | [address] | [address] | | | TESTS | | | | + + + + + FRANKO (BERNARD)VALERIE (11/06/2012 11:08 AM PDT) + +-------+ + + + | Component | Value | Ref Range | Performed | Pathologist | | | | | At | Signature | + +-------+ + + + | POTASSIUM, | 3.4 | 3.4 - 5.0 | [facility] [...] [facility] | [address] | [place], [place] | | | [facility] [facility] | [address] | [address] | | | TESTS | | | | + + + + + GLUCOSE (ART), POC SOR (11/06/2012 11:08 AM PDT) + +---------+ + + + | Component | Value | Ref Range | Performed | Pathologist | | | | | At | Signature | + +---------+ + + + | GLUCOSE, | 122 (H) | 60 - 99 [...] [facility] | [address] | [place], [place] | | | [facility] | [address] | [address] | | | TESTS | | | | + + + + + CHLORIDE (ART), POC SOR (11/06/2012 11:08 AM PDT) + +-------+ + + + | Component | Value | Ref Range | Performed | Pathologist | | | | | At | Signature | + +-------+ + + + | CHLORIDE, | 107 | 97 - 108 mmol/L | [facility] [...] [facility] | [address] | [place], [place] | | | [facility] | [address] | [address] | | | TESTS | | | | + + + + + CALCIUM (ART)VALERIE (11/06/2012 11:08 AM PDT) + +-------+ + + + | Component | Value | Ref Range | Performed | Pathologist | | | | | At | Signature | + +-------+ + + + | LEV | 1.24 | 1.14 - 1.32 | [facility] [...] [facility] | [address] | [place], [place] | | | [place] | [address] | [address] | | | TESTS | | | | + + + + + HEMOGLOBIN (ART), POC SOR (11/06/2012 11:08 AM PDT) + +---------+ + + + | Component | Value | Ref Range | Performed | Pathologist | | | | | At | Signature | + +---------+ + + + | TOTAL | 12.4 | 12.0 - 16.0 | [facility] - | | | HEMOGLOBIN, | | g/dL | [facility] | | | POC | | | [facility] | | | | | | OF CARE | | | | | | TESTS | | + +---------+ + + + | OXYHEMOGLOB | 97.8 | 94.0 - 100 % | [facility] - | | | IN, POC | | | [facility] | | | | | | [facility] | | | | | | OF CARE | | | | | | TESTS | | + +---------+ + + + | CARBOXYHEMO | 1.7 (H) | 0.0 - 1.5 % | [facility] - | | | GLOBIN, POC | | | [facility] | | | | | | [place] | | | | | | OF CARE | | | | | | TESTS | | + +---------+ + + + | METHEMOGLOB | 0.8 | 0.0 - 1.9 % | [facility] - | | | IN, POC | | | [facility] | | | | | | [place] | | | | | | OF CARE | | | | | | TESTS | | + +---------+ + + + | HEMATOCRIT, | 37.9 | 36.0 - 46.0 % | [facility] [...] [facility] | [address] | [place], [place] | | | [facility] | [address] | [address] | | | TESTS | | | | + + + + + ARTERIAL BLOOD GAS, POC (11/06/2012 11:08 AM PDT) + + + + + + | Component | Value | Ref Range | Performed | Pathologist | | | | | At | Signature | + + + + + + | PH | 7.34 (L) | 7.37 - 7.44 | [facility] - | | | ARTERIAL, | | | [facility] | | | POC | | | [facility] | | | | | | OF CARE | | | | | | TESTS | | + + + + + + | PO2 | 255 (H) | 83 - 108 mmHg | [facility] - | | | ARTERIAL, | | | [facility] | | | POC | | | [place] | | | | | | OF CARE | | | | | | TESTS | | + + + + + + | PCO2 | 50 (H) | 32 - 43 mmHg | [facility] - | | | ARTERIAL, | | | [facility] | | | POC | | | [place] | | | | | | OF CARE | | | | | | TESTS | | + + + + + + | O2 SAT | 100.3 (H) | 92.0 - 98.0 % | [facility] - | | | ARTERIAL, | | | [facility] | | | POC | | | [place] | | | | | | OF CARE | | | | | | TESTS | | + + + + + + | HCO3 | 26.4 | 21 - 28 mmol/L | [facility] - | | | ARTERIAL, | | | [facility] | | | [...] [facility] | [address] | [place], [place] | | | [place] [facility] | [facility] | [address] | | | TESTS | | | | + + + + + CAPILLARY BLOOD GLUCOSE (NO CHG), POC (11/06/2012 10:23 AM PDT) + +---------+ + + + [...] [facility] | [address] | [place], [place] | | | [facility] | [facility] | [address] | | | TESTS | | | | + + + + + CONFIRMATORY ABO/RH (11/06/2012 9:30 AM PDT) + + + + [...] | + + + + + | [facility] [employer] | [address] | [place] [address] | | | SERVICES, | [address] | | | | TRANSFUSION MEDICINE | | | | + + + + + CAPILLARY BLOOD GLUCOSE (NO CHG), POC (11/06/2012 6:28 AM PDT) + +---------+ + + + | Component | Value | Ref Range | Performed | Pathologist | | | | | At | Signature | + +---------+ + + + | BLOOD | 135 (H) | 60 - 99 mg/dL | [...] [facility] | [address] | [place], [place] | | | [facility] | [address] | [address] | | | TESTS | | | | + + + + + ANTIBODY SCREEN (11/06/2012 6:28 AM PDT) + + + + + [...] [facility] | [address] | [place] [address] | | | SERVICES, | [address] | | | | TRANSFUSION MEDICINE | | | | + + + + + ABO & RH TYPE (11/06/2012 6:28 AM PDT) + + + + + [...] | + + + + + | [facility] | [address] | [place] [address] | | | SERVICES, | [address] | | | | TRANSFUSION MEDICINE | | | | + + + + + CBC AND AUTO DIFF (11/06/2012 6:28 AM PDT) + + + + + + | Component | Value | Ref Range | Performed | Pathologist | | | | | At | Signature | + + + + + + | WBC COUNT | 13.3 (H) | 4.4 - 11.0 K/cu | [facility] | | | | | mm | LABORATORY | | | | | | SERVICES, | | | | | | CORE | | + + + + + + | RED CELL | 4.67 | 4.00 - 5.20 | [facility] | [...] + + + + | HEMATOCRIT | 38.4 | 36.0 - 46.0 % | [facility] | | | | | | LABORATORY | | | | | | SERVICES, | | | | | | CORE | | + + + + + + | MCV | 82.2 | 80.0 - 96.0 fL | [facility] | | | | | | LABORATORY | | | | | | SERVICES, | | | | | | CORE | | + + + + + + | MCHC | 32.0 (L) | 33.4 - 35.5 | [facility] | | | | | g/dL | LABORATORY | | | | | | SERVICES, | | | | | | CORE | | + + + + + + | RDW | 17.3 (H) | 11.5 - 15.0 % | [facility] | | | | | | LABORATORY | | | | | | SERVICES, | | | | | | CORE | | + + + + + + | PLATELET | 320 | 150 - 400 K/cu | [facility] | | | COUNT | | mm | LABORATORY | | | | | | SERVICES, | | | | | | CORE | | + + + + + + | NEUTROPHIL | 79 (H) | 50 - 70 % | [facility] | | | % | | | LABORATORY | | | | | | SERVICES, | | | | | | CORE | | + + + + + + | LYMPHOCYTE | 14 (L) | 18 - 42 % | [facility] | | | % | | | LABORATORY | | | | | | SERVICES, | | | | | | CORE | | + + + + + + | MONOCYTE % | 6 | 2 - 8 % | [facility] | | | | | | LABORATORY | | | | | | SERVICES, | | | | | | CORE | | + + + + + + | EOS % | 0 (L) | 1 - 3 % | [facility] | | | | | | LABORATORY | | | | | | SERVICES, | | | | | | CORE | | + + + + + + | BASO % | 0 | 0 - 2 % | [facility] | | | | | | LABORATORY | | | | | | SERVICES, | | | | | | CORE | | + + + + + + | NEUTROPHIL | 10.6 (H) | 1.8 - 7.7 K/cu | [facility] | | | # | | mm | LABORATORY | | | | | | SERVICES, | | | | | | CORE | | + + + + + + | LYMPHOCYTE | 1.9 | 1.0 - 4.8 K/cu | [facility] | | | # | | mm | LABORATORY | | | | | | SERVICES, | | | | | | CORE | | + + + + + + | MONOCYTE # | 0.8 | 0.0 - 0.8 K/cu | [facility] | | | | | mm | LABORATORY | | | | | | SERVICES, | | | | | | CORE | | + + + + + + | EOS # | 0.0 | 0.0 - 0.5 K/cu | [facility] | | | | | mm | LABORATORY | | | | | | SERVICES, | | | | | | CORE | | + + + + + + | BASO # | 0.0 | 0.0 - 0.2 K/cu | [facility] | | | | | mm | LABORATORY | | [...] [facility] | [address] | [place] [address] | | | SERVICES, CORE | [address] | | | + + + + + PHOSPHORUS, PLASMA (11/06/2012 6:28 AM PDT) + +-------+ + + + | Component | Value | Ref Range | Performed | Pathologist | | | | | At | Signature | + +-------+ + + + | PHOSPHORUS, | 3.2 | 2.4 - 4.7 mg/dL | [facility] | | | PLASMA [...] | + + + + + | [facility] | [address] | [place] [address] | | | SERVICES, CORE | [address] | | | + + + + + MAGNESIUM, PLASMA (11/06/2012 6:28 AM PDT) + +---------+ + + + | Component | Value | Ref Range | Performed | Pathologist | | | | | At | Signature | + +---------+ + + + | MAGNESIUM,P | 1.7 (L) | 1.8 - 2.5 mg/dL | [facility] | | | [facility] | | | [...] | + + + + + | [facility] [employer] | [address] | [place] [address] | | | SERVICES, CORE | [address] | | | + + + + + INR (11/06/2012 6:28 AM PDT) + +-------+ + + [...] | + + + + + | [facility] | [address] | [place] [address] | | | SERVICES, CORE | [address] | | | + + + + + COMPLETE METABOLIC SET (NA,K,CL,CO2,BUN,CREAT,GLUC,CA,AST,ALT,BILI TOTAL,ALK PHOS,ALB,PROT TOTAL) (11/06/2012 6:28 AM PDT) + +---------+ + + + | Component | Value | Ref Range | Performed | Pathologist | | | | | At | Signature | + +---------+ + + + | GLUCOSE, | 133 (H) | 60 - 99 mg/dL | [...] +---------+ + + + | CREATININE | 0.66 | 0.60 - 1.10 | [facility] | | | PLASMA | | mg/dL | LABORATORY | | | (LAB) | | | SERVICES, | | | | | | CORE | | + +---------+ + + + | EGFR | >60 | >60 mL/min | [facility] | | | - | | | LABORATORY | | | [facility] | | | SERVICES, | | | [...] +---------+ + + + | CHLORIDE, | 107 | 97 - 108 mmol/L | [facility] [...] + + + | TOTAL | 8.0 (H) | 6.1 - 7.9 g/dL | [facility] | | | PROTEIN, [...] + + + | ALK PHOS | 75 | 42 - 98 U/L | [facility] | | | | | | LABORATORY | | | | | | SERVICES, | | | | | | CORE | | + +---------+ + + + | AST(SGOT) | 25 | 15 - 41 U/L | [facility] [...] | + + + + + | [facility] | [address] | [place] [address] | | | SERVICES, CORE | [address] | | | + + + + + 12 LEAD ECG (11/06/2012 5:17 AM PDT) + + + + + + | Component | Value | Ref Range | Performed | Pathologist | | | | | At | Signature | + + + + + + | VENTRICULAR | 96 | BPM | [facility] | | | RATE | | | OF | | | | | | CARDIOLOGY | | + + + + + + | ATRIAL RATE | 96 | BPM | [facility] | | | | | | OF | | | | | | CARDIOLOGY | | + + + + + + | P-R | 164 | ms | [facility] | | | INTERVAL | | | OF | | | | | | CARDIOLOGY | | + + + + + + | QRS | 92 | ms | [facility] | | | DURATION | | | OF | | | | | | CARDIOLOGY | | + + + + + + | QT | 376 | ms | [facility] | | | | | | OF | | | | | | CARDIOLOGY | | + + + + + + | QTC | 475 | ms | [facility] | | | | | | OF | | | | | | CARDIOLOGY | | + + + + + + | P AXIS | 35 | degrees | [facility] | | | | | | OF | | | | | | CARDIOLOGY | | + + + + + + | R AXIS | 60 | degrees | [facility] | | | | | | OF | | | | | | CARDIOLOGY | | + + + + + + | T AXIS | 45 | degrees | [facility] | | | | | | OF | | | | | | CARDIOLOGY | | + + + + + + | EKG | Normal sinus | | [facility] | | | DIAGNOSIS | rhythmNormal ECG"I have | | OF | | | | personally interpreted | | CARDIOLOGY | | | | this report, either | | | | | | alone or with a | | | | | | trainee."Confirmed by | | | | | | CARINA SMITH ([id number]) on | | | | | | 11/06/2012 3:29:04 PM | | | | + + + + + + + + | Specimen | + + | | + + + + + | Narrative | Performed At | + + + | Please click | [facility] | | on view image for the detailed interpretation from [employer] results. | CARDIOLOGY | + + + + + + + + | Performing | Address | City/State/Zipcode | Phone Number | | Organization | | | | + + + + + | [facility] | [address] | [place], [place] | | | CARDIOLOGY | [address] | [address] | | + + + + + URINE, MICROSCOPIC EXAM (11/06/2012 4:51 AM PDT) + +---------+ + + + | Component | Value | Ref Range | Performed | Pathologist | | | | | At | Signature | + +---------+ + + + | RED CELLS | 62 (H) | 0 - 3 /hpf | [facility] | | | | | | LABORATORY | | | | | | SERVICES, | | | | | | CORE | | + +---------+ + + + | WHITE CELLS | 4 | 0 - 5 /hpf | [facility] [...] +---------+ + + + | MUCOUS | Few (A) | None /hpf | [...] + + | Urine - Urine | + + + + + + + | Performing | Address | City/State/Zipcode | Phone Number | | Organization | | | | + + + + + | [facility] | [address] | [place] [address] | | | SERVICES, CORE | [address] | | | + + + + + UA, DIPSTICK ONLY (11/06/2012 4:51 AM PDT) + + + + + + | Component | Value | Ref Range | Performed | Pathologist | | | | | At | Signature | + + + + + + | COLOR(UR) | Darlin | (none) | [facility] | | | | | | LABORATORY | | | | | | SERVICES, | | | | | | CORE | | + + + + + + | APPEARANCE | Mod. Cloudy | (none) | [facility] | | | | | [...] + + + + | PROTEIN(LAB | 100.0 (A) | Negative, 30.0 | [facility] | | [...] + + + + | BLOOD | Large (A) | Negative | [facility] | | | | | | LABORATORY | | | | | | SERVICES, | | | | | | CORE | | + + + + + + | KETONES | 20.0 (A) | Negative mg/dL | [facility] | | [...] + + + + | SPECIFIC | 1.025 | 1.005 - 1.030 | [facility] | | | GRAVITY | | | LABORATORY | | | | | | SERVICES, | | | | | | CORE | | + + + + + + + + | Specimen | + + | Urine - Urine | + + + + + + + | Performing | Address | City/State/Zipcode | Phone Number | | Organization | | | | + + + + + | [facility] | [address] | [place] [address] | | | SERVICES, CORE | [address] | | | + + + + + documented in this encounter Visit Diagnoses + + | Diagnosis | + + | Hernia - Primary Hernia of unspecified site of abdominal cavity without mention of | | obstruction or gangrene | + + | Severe Morbid obesity (HCC), BMI 88 Morbid obesity | + + documented in this encounter Administered Medications + +--------+ +--------+------+------+ | Medication Order | MAR | Action | Dose | Rate | Site | | | Action | Date | | | | + +--------+ +--------+------+------+ | acetaminophen (aka TYLENOL) | Given | 11/07/19 | 650 mg | | | | oral suspension 325-650 mg | | 13 11:53 | | | | | 325-650 mg, feeding tube, EVERY 4 | | PM PDT | | | | | HOURS NEEDED, Starting Sat | | | | | | | 11/06/12 at 1419, Until Sun | | | | | | | 11/07/12 at 1020, mild pain | | | | | | + +--------+ +--------+------+------+ +---+---+ | | | +---+---+ + +-------+ +--------+---+---+ | acetaminophen (aka TYLENOL) | Given | 11/10/19 | 650 mg | | | | tablet 650 mg 650 mg, oral, | | 13 4:04 | | | | | EVERY 6 HOURS, First dose (after | | PM PDT | | | | | last modification) on 11/07/12 | | | | | | | at 1600, Until Discontinued | | | | | | + +-------+ +--------+---+---+ +-------+ +--------+---+---+ | Given | 11/10/19 | 650 mg | | | | | 13 12:16 | | | | | | PM PDT | | | | +-------+ +--------+---+---+ | Given | 11/10/19 | 650 mg | | | | | 13 4:17 | | | | | | AM PDT | | | | +-------+ +--------+---+---+ +---+---+ | | | +---+---+ + +-------+ +------+---+---+ | ALPRAZolam (aka XANAX) tablet 1 | Given | 11/13/19 | 1 mg | | | | mg 1 mg, oral, THREE TIMES | | 13 9:17 | | | | | DAILY, First dose on 11/07/12 | | AM PDT | | | | | at 1600, Until Discontinued | | | | | | + +-------+ +------+---+---+ +-------+ +------+---+---+ | Given | 11/12/19 | 1 mg | | | | | 13 9:12 | | | | | | PM PDT | | | | +-------+ +------+---+---+ | Given | 11/12/19 | 1 mg | | | | | 13 4:48 | | | | | | PM PDT | | | | +-------+ +------+---+---+ +---+---+ | | | +---+---+ + +-------+ +-------+---+---+ | bisacodyl (aka DULCOLAX) | Given | 11/12/19 | 10 mg | | | | suppository 10 mg 10 mg, rectal, | | 13 9:12 | | | | | DAILY NEEDED, Starting Wed | | PM PDT | | | | | 11/10/12 at 1020, Until Fri | | | | | | | 11/12/12 at 2148, constipation | | | | | | + +-------+ +-------+---+---+ +---+---+ | | | +---+---+ + +-------+ + +---+---+ | | Given | 11/11/19 | 1 tablet | | | | nyvjwjpubt-snpyytipblosd-szccqzma | | 13 8:02 | | | | | (aka FIORICET) 50-325-40 mg 1 | | AM PDT | | | | | Tab 1 tablet, oral, EVERY 4 | | | | | | | HOURS NEEDED, Starting Mon | | | | | | | 11/08/12 at 1011, Until Fri | | | | | | | 11/12/12 at 2148, headache | | | | | | + +-------+ + +---+---+ +-------+ + +---+---+ | Given | 11/11/19 | 1 tablet | | | | | 13 12:58 | | | | | | AM PDT | | | | +-------+ + +---+---+ | Given | 11/10/19 | 1 tablet | | | | | 13 5:06 | | | | | | PM PDT | | | | +-------+ + +---+---+ +---+---+ | | | +---+---+ + +-------+ +-------+---+---+ | chlorhexidine (aka PERIDEX) | Given | 11/08/19 | 15 mL | | | | mouthwash 15 mL 15 mL, oral, | | 13 8:07 | | | | | EVERY 6 HOURS, First dose on Sat | | AM PDT | | | | | 11/06/12 at 1615, Until | | | | | | | Discontinued | | | | | | + +-------+ +-------+---+---+ +-------+ +-------+---+---+ | Given | 11/07/19 | 15 mL | | | | | 13 8:30 | | | | | | PM PDT | | | | +-------+ +-------+---+---+ | Given | 11/07/19 | 15 mL | | | | | 13 5:27 | | | | | | PM PDT | | | | +-------+ +-------+---+---+ +---+---+ | | | +---+---+ + +-------+ +--------+---+---+ | ciprofloxacin (aka CIPRO) | Given | 11/13/19 | 500 mg | | | | tablet 500 mg 500 mg, oral, | | 13 8:16 | | | | | TWICE DAILY, 14 doses, First dose | | AM PDT | | | | | on Thu11/09/12 at 1215, Last | | | | | | | dose on Thu11/15/12 at 2100 | | | | | | + +-------+ +--------+---+---+ +-------+ +--------+---+---+ | Given | 11/12/19 | 500 mg | | | | | 13 9:00 | | | | | | PM PDT | | | | +-------+ +--------+---+---+ | Given | 11/12/19 | 500 mg | | | | | 13 8:03 | | | | | | AM PDT | | | | +-------+ +--------+---+---+ +---+---+ | | | +---+---+ + + + + +-------+---+ | dexmedetomidine 400 mcg in NaCl | Rate/Dos | 11/07/19 | 0.2 | 9.17 | | | 0.9 % IV infusion 0.3-0.7 | e Change | 13 11:00 | mcg/kg/h | mL/hr | | | mcg/kg/hr | | PM PDT | r | | | | 183.3 kg Dosing weight (rounded | | | | | | | to 13.75-32.08 mL/hr), | | | | | | | intravenous, CONTINUOUS, Starting | | | | | | | 11/06/12 at 1715, Until Sun | | | | | | | 11/07/12 at 0310 | | | | | | + + + + +-------+---+ + + + +--------+---+ | Rate/Dose Change | 11/07/19 | 0.3 | 13.75 | | | | 13 9:30 | mcg/kg/h | mL/hr | | | | PM PDT | r | | | + + + +--------+---+ | Rate/Dose Change | 11/07/19 | 0.4 | 18.33 | | | | 13 8:52 | mcg/kg/h | mL/hr | | | | PM PDT | r | | | + + + +--------+---+ +---+---+ | | | +---+---+ + +-------+ +-------+---+---+ | enoxaparin (aka LOVENOX) | Given | 11/13/19 | 30 mg | | | | injection 30 mg 30 mg, | | 13 8:15 | | | | | subcutaneous, EVERY 12 HOURS, | | AM PDT | | | | | First dose on 11/07/12 at | | | | | | | 0900, Until Discontinued | | | | | | + +-------+ +-------+---+---+ +-------+ +-------+---+---+ | Given | 11/12/19 | 30 mg | | | | | 13 9:00 | | | | | | PM PDT | | | | +-------+ +-------+---+---+ | Given | 11/12/19 | 30 mg | | | | | 13 8:03 | | | | | | AM PDT | | | | +-------+ +-------+---+---+ +---+---+ | | | +---+---+ + +-------+ +-------+---+---+ | famotidine (aka PEPCID) tablet | Given | 11/13/19 | 20 mg | | | | 20 mg 20 mg, oral, TWICE DAILY, | | 13 8:16 | | | | | First dose on Thu11/10/12 at | | AM PDT | | | | | 2100, Until Discontinued | | | | | | + +-------+ +-------+---+---+ +-------+ +-------+---+---+ | Given | 11/12/19 | 20 mg | | | | | 13 9:00 | | | | | | PM PDT | | | | +-------+ +-------+---+---+ | Given | 11/12/19 | 20 mg | | | | | 13 8:02 | | | | | | AM PDT | | | | +-------+ +-------+---+---+ +---+---+ | | | +---+---+ + +---------+ +-------+-------+---+ | famotidine in NS (aka PEPCID) | New Bag | 11/07/19 | 20 mg | 200 | | | IV 20 mg 20 mg, intravenous, | | 13 7:58 | | mL/hr | | | EVERY 12 HOURS, First dose on Sat | | AM PDT | | | | | 11/06/12 at 0900, Until | | | | | | | Discontinued | | | | | | + +---------+ +-------+-------+---+ +---+---+ | | | +---+---+ + +---------+ +-------+-------+---+ | famotidine in NS (aka PEPCID) | New Bag | 11/11/19 | 20 mg | 200 | | | IV 20 mg 20 mg, intravenous, | | 13 8:03 | | mL/hr | | | EVERY 12 HOURS, First dose on Sat | | AM PDT | | | | | 11/06/12 at 2100, Until | | | | | | | Discontinued | | | | | | + +---------+ +-------+-------+---+ +---------+ +-------+-------+---+ | New Bag | 11/10/19 | 20 mg | 200 | | | | 13 8:47 | | mL/hr | | | | PM PDT | | | | +---------+ +-------+-------+---+ | New Bag | 11/10/19 | 20 mg | 200 | | | | 13 8:58 | | mL/hr | | | | AM PDT | | | | +---------+ +-------+-------+---+ +---+---+ | | | +---+---+ + +---------+ +--------+--------+---+ | fentaNYL citrate (PF) (aka | New Bag | 11/07/19 | 50 mcg | mL/hr | | | SUBLIMAZE) injection 25-100 mcg | | 13 8:52 | | | | | 25-100 mcg, intravenous, EVERY 1 | | PM PDT | | | | | HOUR NEEDED, Starting Sat | | | | | | | 11/06/12 at 1419, Until Sun | | | | | | | 11/07/12 at 0310, mild pain, | | | | | | | moderate pain | | | | | | + +---------+ +--------+--------+---+ +---------+ +--------+--------+---+ | New Bag | 11/07/19 | 50 mcg | mL/hr | | | | 13 8:16 | | | | | | PM PDT | | | | +---------+ +--------+--------+---+ | New Bag | 11/07/19 | 50 mcg | mL/hr | | | | 13 6:00 | | | | | | PM PDT | | | | +---------+ +--------+--------+---+ +---+---+ | | | +---+---+ + +-------+ +-------+---+---+ | FLUoxetine (aka PROZAC) capsule | Given | 11/13/19 | 40 mg | | | | 40 mg 40 mg, oral, DAILY, First | | 13 8:18 | | | | | dose on 11/06/12 at 0900, | | AM PDT | | | | | Until Discontinued | | | | | | + +-------+ +-------+---+---+ +-------+ +-------+---+---+ | Given | 11/12/19 | 40 mg | | | | | 13 8:03 | | | | | | AM PDT | | | | +-------+ +-------+---+---+ | Given | 11/11/19 | 40 mg | | | | | 13 8:02 | | | | | | AM PDT | | | | +-------+ +-------+---+---+ +---+---+ | | | +---+---+ + +---------+ +--------+--------+---+ | HYDROmorphone (aka DILAUDID) | New Bag | 11/07/19 | 0.5 mg | mL/hr | | | injection 0.2-1 mg 0.2-1 mg, | | 13 7:58 | | | | | intravenous, EVERY 2 HOURS | | AM PDT | | | | | NEEDED, Starting 11/06/12 at | | | | | | | 0447, Until 11/06/12 at 1423, | | | | | | | moderate pain | | | | | | + +---------+ +--------+--------+---+ +---------+ +--------+--------+---+ | New Bag | 11/07/19 | 0.5 mg | mL/hr | | | | 13 6:28 | | | | | | AM PDT | | | | +---------+ +--------+--------+---+ | New Bag | 11/07/19 | 0.5 mg | mL/hr | | | | 13 5:10 | | | | | | AM PDT | | | | +---------+ +--------+--------+---+ +---+---+ | | | +---+---+ + + + +--------+--------+---+ | HYDROmorphone 25 mg in | Rate/Dos | 11/11/19 | 0.1 mg | mL/hr | | | preservative free NaCl 0.9% 50 mL | e Change | 13 7:36 | | | | | 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 intravenous, | | PM PDT | | | | | CONTINUOUS, Starting 11/06/12 | | | | | | | at 2100, Until Jasmyne 11/11/12 at | | | | | | | 0702 | | | | | | + + + +--------+--------+---+ + + +--------+--------+---+ | Rate/Dose Change | 11/11/19 | 0.2 mg | mL/hr | | | | 13 11:22 | | | | | | AM PDT | | | | + + +--------+--------+---+ | Rate/Dose Verify | 11/11/19 | 0.1 mg | mL/hr | | | | 13 7:48 | | | | | | AM PDT | | | | + + +--------+--------+---+ +---+---+ | | | +---+---+ + +---------+ +-------+--------+---+ | ketorolac (aka TORADOL) | New Bag | 11/09/19 | 30 mg | mL/hr | | | injection 30 mg 30 mg, | | 13 10:24 | | | | | intravenous, EVERY 6 HOURS | | AM PDT | | | | | NEEDED, Starting 11/07/12 at | | | | | | | 1023, Until Thu11/12/12 at 1022, | | | | | | | moderate pain | | | | | | + +---------+ +-------+--------+---+ +---------+ +-------+--------+---+ | New Bag | 11/08/19 | 30 mg | mL/hr | | | | 13 9:48 | | | | | | PM PDT | | | | +---------+ +-------+--------+---+ | New Bag | 11/08/19 | 30 mg | mL/hr | | | | 13 10:50 | | | | | | AM PDT | | | | +---------+ +-------+--------+---+ +---+---+ | | | +---+---+ + +---------+ + + +---+ | lactated ringers IV 75 mL/hr, | New Bag | 11/07/19 | 75 mL/hr | 75 mL/hr | | | intravenous, CONTINUOUS, Starting | | 13 5:10 | | | | | 11/06/12 at 0500, Until Sat | | AM PDT | | | | | 11/06/12 at 0733 | | | | | | + +---------+ + + +---+ +---+---+ | | | +---+---+ + +---------+ + +--------+---+ | lactated ringers IV 1,000 mL, | New Bag | 11/07/19 | 1,000 mL | mL/hr | | | intravenous, ONCE, 1 dose, Sat | | 13 7:58 | | | | | 11/06/12 at 0815 | | AM PDT | | | | + +---------+ + +--------+---+ +---+---+ | | | +---+---+ + +---------+ +-------+-------+---+ | lactated ringers IV 100 mL/hr, | New Bag | 11/07/19 | 100 | 100 | | | intravenous, CONTINUOUS, | | 13 8:00 | mL/hr | mL/hr | | | Starting 11/06/12 at 0745, | | AM PDT | | | | | Until 11/06/12 at 1423 | | | | | | + +---------+ +-------+-------+---+ +---+---+ | | | +---+---+ + + + +-------+-------+---+ | lactated ringers IV 100 mL/hr, | Rate/Dos | 11/07/19 | 100 | 100 | | | intravenous, CONTINUOUS, | e Change | 13 11:00 | mL/hr | mL/hr | | | Starting 11/06/12 at 1500, | | PM PDT | | | | | Until 11/07/12 at 0408 | | | | | | + + + +-------+-------+---+ + + +-------+-------+---+ | New Bag | 11/07/19 | 100 | 100 | | | | 13 6:55 | mL/hr | mL/hr | | | | PM PDT | | | | + + +-------+-------+---+ | Rate/Dose Change | 11/07/19 | 100 | 100 | | | | 13 2:55 | mL/hr | mL/hr | | | | PM PDT | | | | + + +-------+-------+---+ +---+---+ | | | +---+---+ + +---------+ + +--------+---+ | lactated ringers IV 1,000 mL, | New Bag | 11/08/19 | 1,000 mL | mL/hr | | | intravenous, ONCE, 1 dose, Sun | | 13 2:42 | | | | | 11/07/12 at 0315 | | AM PDT | | | | + +---------+ + +--------+---+ +---+---+ | | | +---+---+ + +---------+ +-------+-------+---+ | lactated ringers IV 125 mL/hr, | New Bag | 11/12/19 | 125 | 125 | | | intravenous, CONTINUOUS, | | 13 5:01 | mL/hr | mL/hr | | | Starting 11/07/12 at 0415, | | AM PDT | | | | | Until [facility] 11/11/12 at 0702 | | | | | | + +---------+ +-------+-------+---+ +---------+ +-------+-------+---+ | New Bag | 11/11/19 | 125 | 125 | | | | 13 8:35 | mL/hr | mL/hr | | | | PM PDT | | | | +---------+ +-------+-------+---+ | New Bag | 11/11/19 | 125 | 125 | | | | 13 12:30 | mL/hr | mL/hr | | | | PM PDT | | | | +---------+ +-------+-------+---+ +---+---+ | | | +---+---+ + +---------+ + +--------+---+ | lactated ringers IV 1,000 mL, | New Bag | 11/08/19 | 1,000 mL | mL/hr | | | intravenous, ONCE, 1 dose, Sun | | 13 4:15 | | | | | 11/07/12 at 0445 | | AM PDT | | | | + +---------+ + +--------+---+ +---+---+ | | | +---+---+ + +-------+ +---------+---+---+ | lactobacillus rhamnosus (GG) | Given | 11/13/19 | 1 | | | | (jack ROGERS) capsule 1 Cap 1 | | 13 8:15 | capsule | | | | capsule, oral, DAILY, First dose | | AM PDT | | | | | on Thu11/09/12 at 0915, Until | | | | | | | Discontinued | | | | | | + +-------+ +---------+---+---+ +-------+ +---------+---+---+ | Given | 11/12/19 | 1 | | | | | 13 8:03 | capsule | | | | | AM PDT | | | | +-------+ +---------+---+---+ | Given | 11/11/19 | 1 | | | | | 13 8:02 | capsule | | | | | AM PDT | | | | +-------+ +---------+---+---+ +---+---+ | | | +---+---+ + +---------+ +--------+--------+---+ | LORazepam (jack ATIVAN) | New Bag | 11/07/19 | 0.5 mg | mL/hr | | | injection 0.5-1 mg 0.5-1 mg, | | 13 5:10 | | | | | intravenous, EVERY 8 HOURS | | AM PDT | | | | | NEEDED, Starting 11/06/12 at | | | | | | | 0447, Until 11/06/12 at 1423, | | | | | | | anxiety | | | | | | + +---------+ +--------+--------+---+ +---+---+ | | | +---+---+ + +---------+ +--------+--------+---+ | LORazepam (aka ATIVAN) | New Bag | 11/10/19 | 0.5 mg | mL/hr | | | injection 0.5-1 mg 0.5-1 mg, | | 13 12:33 | | | | | intravenous, EVERY 6 HOURS | | PM PDT | | | | | NEEDED, Starting 11/07/12 at | | | | | | | 0315, Until 11/10/12 at 1019, | | | | | | | anxiety, agitation | | | | | | + +---------+ +--------+--------+---+ +---------+ +--------+--------+---+ | New Bag | 11/08/19 | 0.5 mg | mL/hr | | | | 13 6:15 | | | | | | AM PDT | | | | +---------+ +--------+--------+---+ | New Bag | 11/08/19 | 0.5 mg | mL/hr | | | | 13 5:31 | | | | | | AM PDT | | | | +---------+ +--------+--------+---+ +---+---+ | | | +---+---+ + +---------+ +------+--------+---+ | LORazepam (aka ATIVAN) | New Bag | 11/07/19 | 2 mg | mL/hr | | | injection 1-4 mg 1-4 mg, | | 13 3:48 | | | | | intravenous, EVERY 1 HOUR | | PM PDT | | | | | NEEDED, Starting 11/06/12 at | | | | | | | 1420, Until 11/07/12 at 0312, | | | | | | | anxiety, agitation | | | | | | + +---------+ +------+--------+---+ +---+---+ | | | +---+---+ + +-------+ +--------+---+---+ | magnesium chloride SR (aka | Given | 11/13/19 | 128 mg | | | | SLOW-MAG) tablet 128 mg 128 mg, | | 13 8:32 | | | | | oral, TWICE DAILY, First dose on | | AM PDT | | | | | Jasmyne 11/11/12 at 0930, Until | | | | | | | Discontinued | | | | | | + +-------+ +--------+---+---+ +-------+ +--------+---+---+ | Given | 11/12/19 | 128 mg | | | | | 13 9:00 | | | | | | PM PDT | | | | +-------+ +--------+---+---+ | Given | 11/12/19 | 128 mg | | | | | 13 11:08 | | | | | | AM PDT | | | | +-------+ +--------+---+---+ +---+---+ | | | +---+---+ + +---------+ +-----+--------+---+ | magnesium sulfate in D5W IV 4 g | New Bag | 11/08/19 | 4 g | mL/hr | | | 4 g, intravenous, ONCE, 1 dose, | | 13 3:22 | | | | | 11/07/12 at 0330 | | AM PDT | | | | + +---------+ +-----+--------+---+ +---+---+ | | | +---+---+ + +---------+ +-----+--------+---+ | magnesium sulfate in D5W IV 4 g | New Bag | 11/10/19 | 4 g | mL/hr | | | 4 g, intravenous, ONCE, 1 dose, | | 13 7:33 | | | | | 11/09/12 at 0630 | | AM PDT | | | | + +---------+ +-----+--------+---+ +---+---+ | | | +---+---+ + +---------+ +-----+--------+---+ | magnesium sulfate in D5W IV 4 g | New Bag | 11/11/19 | 4 g | mL/hr | | | 4 g, intravenous, ONCE, 1 dose, | | 13 5:49 | | | | | 11/10/12 at 0530 | | AM PDT | | | | + +---------+ +-----+--------+---+ +---+---+ | | | +---+---+ + +---------+ +-----+--------+---+ | magnesium sulfate in D5W IV 4 g | New Bag | 11/12/19 | 4 g | mL/hr | | | 4 g, intravenous, ONCE, 1 dose, | | 13 9:26 | | | | | Jasmyne 11/11/12 at 1000 | | AM PDT | | | | + +---------+ +-----+--------+---+ +---+---+ | | | +---+---+ + +-------+ +---+---+---+ | mupirocin (aka BACTROBAN) 2 % | Given | 11/10/19 | | | | | ointment nasal, TWICE DAILY, 6 | | 13 9:05 | | | | | doses, First dose on Thu11/06/12 | | AM PDT | | | | | at 2100, Last dose on Thu11/09/12 | | | | | | | at 0900 | | | | | | + +-------+ +---+---+---+ +-------+ +---+---+---+ | Given | 11/09/19 | | | | | | 13 9:23 | | | | | | PM PDT | | | | +-------+ +---+---+---+ | Given | 11/09/19 | | | | | | 13 8:14 | | | | | | AM PDT | | | | +-------+ +---+---+---+ +---+---+ | | | +---+---+ + +---------+ +------+--------+---+ | nalbuphine (aka NUBAIN) | New Bag | 11/11/19 | 5 mg | mL/hr | | | injection 5 mg 5 mg, | | 13 8:04 | | | | | intravenous, EVERY 4 HOURS | | AM PDT | | | | | NEEDED, Starting 11/07/12 at | | | | | | | 1024, Until Thu11/12/12 at 2148, | | | | | | | itching | | | | | | + +---------+ +------+--------+---+ +---------+ +------+--------+---+ | New Bag | 11/10/19 | 5 mg | mL/hr | | | | 13 5:07 | | | | | | PM PDT | | | | +---------+ +------+--------+---+ | New Bag | 11/10/19 | 5 mg | mL/hr | | | | 13 4:43 | | | | | | AM PDT | | | | +---------+ +------+--------+---+ +---+---+ | | | +---+---+ + +-------+ +---+---+---+ | nystatin (aka MYCOSTATIN) | Given | 11/13/19 | | | | | powder topical, TWICE DAILY, | | 13 10:13 | | | | | First dose on 11/06/12 at | | AM PDT | | | | | 1445, Until Discontinued | | | | | | + +-------+ +---+---+---+ +-------+ +---+---+---+ | Given | 11/12/19 | | | | | | 13 9:00 | | | | | | PM PDT | | | | +-------+ +---+---+---+ | Given | 11/12/19 | | | | | | 13 8:03 | | | | | | AM PDT | | | | +-------+ +---+---+---+ +---+---+ | | | +---+---+ + +-------+ +-------+---+---+ | olanzapine (aka ZYPREXA) tablet | Given | 11/12/19 | 30 mg | | | | 30 mg 30 mg, oral, AT BEDTIME, | | 13 9:11 | | | | | First dose on 11/06/12 at | | PM PDT | | | | | 2200, Until Discontinued | | | | | | + +-------+ +-------+---+---+ +-------+ +-------+---+---+ | Given | 11/11/19 | 30 mg | | | | | 13 9:40 | | | | | | PM PDT | | | | +-------+ +-------+---+---+ | Given | 11/10/19 | 30 mg | | | | | 13 8:47 | | | | | | PM PDT | | | | +-------+ +-------+---+---+ +---+---+ | | | +---+---+ + +---------+ +------+--------+---+ | ondansetron (aka ZOFRAN) | New Bag | 11/07/19 | 4 mg | mL/hr | | | injection 4 mg 4 mg, | | 13 9:16 | | | | | intravenous, EVERY 12 HOURS | | AM PDT | | | | | NEEDED, Starting 11/06/12 at | | | | | | | 0819, Until 11/06/12 at 1423, | | | | | | | nausea/vomiting | | | | | | + +---------+ +------+--------+---+ +---+---+ | | | +---+---+ + +---------+ +------+--------+---+ | ondansetron (aka ZOFRAN) | New Bag | 11/07/19 | 4 mg | mL/hr | | | injection 4 mg 4 mg, | | 13 8:20 | | | | | intravenous, EVERY 12 HOURS | | PM PDT | | | | | NEEDED, Starting 11/06/12 at | | | | | | | 1420, Until Thu11/12/12 at 2148, | | | | | | | nausea/vomiting | | | | | | + +---------+ +------+--------+---+ +---+---+ | | | +---+---+ + +-------+ +-------+---+---+ | oxyCODONE (immediate release) | Given | 11/13/19 | 30 mg | | | | (aka ROXICODONE) tablet 15-30 mg | | 13 2:40 | | | | | 15-30 mg, oral, EVERY 3 HOURS | | PM PDT | | | | | NEEDED, Starting Jasmyne 11/11/12 at | | | | | | | 0720, Until Thu11/12/12 at 2148, | | | | | | | severe pain | | | | | | + +-------+ +-------+---+---+ +-------+ +-------+---+---+ | Given | 11/13/19 | 30 mg | | | | | 13 11:38 | | | | | | AM PDT | | | | +-------+ +-------+---+---+ | Given | 11/13/19 | 30 mg | | | | | 13 8:33 | | | | | | AM PDT | | | | +-------+ +-------+---+---+ +---+---+ | | | +---+---+ + +-------+ +-------+---+---+ | oxyCODONE (immediate release) | Given | 11/12/19 | 15 mg | | | | (aka ROXICODONE) tablet 5-15 mg | | 13 5:01 | | | | | 5-15 mg, oral, EVERY 3 HOURS | | AM PDT | | | | | NEEDED, Starting Thu11/10/12 at | | | | | | | 1404, Until Thu11/11/12 at 0721, | | | | | | | severe pain | | | | | | + +-------+ +-------+---+---+ +-------+ +-------+---+---+ | Given | 11/12/19 | 5 mg | | | | | 13 1:36 | | | | | | AM PDT | | | | +-------+ +-------+---+---+ | Given | 11/12/19 | 10 mg | | | | | 13 12:01 | | | | | | AM PDT | | | | +-------+ +-------+---+---+ +---+---+ | | | +---+---+ + +-------+ +-------+---+---+ | phenol (aka CEPASTAT ES) | Given | 11/11/19 | 29 mg | | | | lozenge 29 mg 29 mg (1 lozenge), | | 13 11:33 | | | | | oral, NEEDED, Starting Wed | | AM PDT | | | | | 11/10/12 at 1039, Until Fri | | | | | | | 11/12/12 at 2148, sore throat | | | | | | + +-------+ +-------+---+---+ +---+---+ | | | +---+---+ + +-------+ +------+---+---+ | polyethylene glycol (aka | Given | 11/11/19 | 17 g | | | | MIRALAX) powder 17 g 17 g, oral, | | 13 11:33 | | | | | DAILY, First dose on Thu11/10/12 | | AM PDT | | | | | at 1030, Until Discontinued | | | | | | + +-------+ +------+---+---+ +---+---+ | | | +---+---+ + +-------+ +------+---+---+ | polyethylene glycol (aka | Given | 11/12/19 | 17 g | | | | MIRALAX) powder 17 g 17 g, oral, | | 13 9:20 | | | | | TWICE DAILY, First dose (after | | PM PDT | | | | | last modification) on [facility] 11/11/12 | | | | | | | at 0715, Until Discontinued | | | | | | + +-------+ +------+---+---+ +-------+ +------+---+---+ | Given | 11/12/19 | 17 g | | | | | 13 8:03 | | | | | | AM PDT | | | | +-------+ +------+---+---+ +---+---+ | | | +---+---+ + +-------+ +---------+---+---+ | potassium & sodium phosphates | Given | 11/10/19 | 2 | | | | (aka NEUTRA-PHOS, PHOS-NAK) | | 13 12:13 | packets | | | | 280-160-250 mg packet 2 Packet 2 | | PM PDT | | | | | packet, oral, ONCE, 1 dose, Tue | | | | | | | 11/09/12 at 0930 | | | | | | + +-------+ +---------+---+---+ +---+---+ | | | +---+---+ + +---------+ +--------+--------+---+ | potassium chloride IV 20 mEq | New Bag | 11/08/19 | 20 mEq | mL/hr | | | 20 mEq, intravenous, NEEDED, | | 13 1:59 | | | | | Starting 11/06/12 at 1420, | | AM PDT | | | | | Until 11/07/12 at 1020, | | | | | | | hypokalemia | | | | | | + +---------+ +--------+--------+---+ +---+---+ | | | +---+---+ + +---------+ +--------+--------+---+ | potassium chloride IV 20 mEq | New Bag | 11/08/19 | 20 mEq | mL/hr | | | 20 mEq, intravenous, ONCE, 1 | | 13 3:33 | | | | | dose, 11/07/12 at 0330 | | AM PDT | | | | + +---------+ +--------+--------+---+ +---+---+ | | | +---+---+ + +---------+ +--------+--------+---+ | potassium chloride IV 40 mEq | New Bag | 11/07/19 | 40 mEq | mL/hr | | | 40 mEq, intravenous, ONCE, | | 13 5:12 | | | | | dose, 11/06/12 at 1730 | | PM PDT | | | | + +---------+ +--------+--------+---+ +---+---+ | | | +---+---+ + +---------+ +--------+--------+---+ | potassium chloride IV 40 mEq | New Bag | 11/10/19 | 40 mEq | mL/hr | | | 40 mEq, intravenous, TWICE DAILY, | | 13 8:47 | | | | | 2 doses, First dose on Thu | | PM PDT | | | | | 11/09/12 at 0700, Last dose on Thu | | | | | | | 11/09/12 at 2100 | | | | | | + +---------+ +--------+--------+---+ +---------+ +--------+--------+---+ | New Bag | 11/10/19 | 40 mEq | mL/hr | | | | 13 9:00 | | | | | | AM PDT | | | | +---------+ +--------+--------+---+ +---+---+ | | | +---+---+ + +---------+ +--------+--------+---+ | potassium chloride IV 40 mEq | New Bag | 11/11/19 | 40 mEq | mL/hr | | | 40 mEq, intravenous, ONCE, 1 | | 13 9:41 | | | | | dose, 11/10/12 at 0930 | | AM PDT | | | | + +---------+ +--------+--------+---+ +---+---+ | | | +---+---+ + +---------+ +--------+--------+---+ | potassium chloride IV 40 mEq | New Bag | 11/12/19 | 40 mEq | mL/hr | | | 40 mEq, intravenous, TWICE DAILY, | | 13 8:07 | | | | | 2 doses, First dose on Jasmyne | | PM PDT | | | | | 11/11/12 at 0945, Last dose on Jasmyne | | | | | | | 11/11/12 at 2100 | | | | | | + +---------+ +--------+--------+---+ +---------+ +--------+--------+---+ | New Bag | 11/12/19 | 40 mEq | mL/hr | | | | 13 11:08 | | | | | | AM PDT | | | | +---------+ +--------+--------+---+ +---+---+ | | | +---+---+ + +---------+ +---------+--------+---+ | promethazine (aka PHENERGAN) | New Bag | 11/08/19 | 12.5 mg | mL/hr | | | injection 12.5 mg 12.5 mg, | | 13 4:02 | | | | | intravenous, EVERY 4 HOURS | | PM PDT | | | | | NEEDED, Starting 11/07/12 at | | | | | | | 1024, Until Thu11/12/12 at 2148, | | | | | | | nausea/vomiting | | | | | | + +---------+ +---------+--------+---+ +---------+ +---------+--------+---+ | New Bag | 11/08/19 | 12.5 mg | mL/hr | | | | 13 10:50 | | | | | | AM PDT | | | | +---------+ +---------+--------+---+ +---+---+ | | | +---+---+ + + + + +--------+---+ | propofol (aka DIPRIVAN) | Restarte | 11/07/19 | 30 | 32.99 | | | injection 0.5-60 mcg/kg/min | d | 13 7:30 | mcg/kg/m | mL/hr | | | 183.3 kg Dosing weight (rounded | | PM PDT | in | | | | to 0.55-65.99 mL/hr), | | | | | | | intravenous, CONTINUOUS, Starting | | | | | | | 11/06/12 at 1515, Until Sun | | | | | | | 11/07/12 at 0310 | | | | | | + + + + +--------+---+ +---------+ + +---------+---+ | New Bag | 11/07/19 | 50 | 54.99 | | | | 13 4:59 | mcg/kg/m | mL/hr | | | | PM PDT | in | | | +---------+ + +---------+---+ | New Bag | 11/07/19 | 100 | 109.98 | | | | 13 4:29 | mcg/kg/m | mL/hr | | | | PM PDT | in | | | +---------+ + +---------+---+ +---+---+ | | | +---+---+ + +-------+ + +---+---+ | fredna-monikausate (aka SENOKOT S) | Given | 11/13/19 | 1 tablet | | | | 8.6-50 mg 1 Tab 1 tablet, oral, | | 13 8:16 | | | | | DAILY, First dose on Thu11/10/12 | | AM PDT | | | | | at 1030, Until Discontinued | | | | | | + +-------+ + +---+---+ +-------+ + +---+---+ | Given | 11/12/19 | 1 tablet | | | | | 13 8:03 | | | | | | AM PDT | | | | +-------+ + +---+---+ | Given | 11/11/19 | 1 tablet | | | | | 13 11:33 | | | | | | AM PDT | | | | +-------+ + +---+---+ +---+---+ | | | +---+---+ + +-------+ +-------+---+---+ | torsemide (aka DEMADEX) tablet | Given | 11/13/19 | 40 mg | | | | 40 mg 40 mg, oral, TWICE DAILY | | 13 9:33 | | | | | (DIURETIC), First dose on Thu | | AM PDT | | | | | 11/07/12 at 1030, Until | | | | | | | Discontinued | | | | | | + +-------+ +-------+---+---+ +-------+ +-------+---+---+ | Given | 11/12/19 | 40 mg | | | | | 13 4:48 | | | | | | PM PDT | | | | +-------+ +-------+---+---+ | Given | 11/12/19 | 40 mg | | | | | 13 8:04 | | | | | | AM PDT | | | | +-------+ +-------+---+---+ +---+---+ | | | +---+---+ + +-------+ +--------+---+---+ | traZODone (aka DESYREL) tablet | Given | 11/12/19 | 150 mg | | | | 150 mg 150 mg, oral, AT BEDTIME, | | 13 9:12 | | | | | First dose on 11/06/12 at | | PM PDT | | | | | 2200, Until Discontinued | | | | | | + +-------+ +--------+---+---+ +-------+ +--------+---+---+ | Given | 11/11/19 | 150 mg | | | | | 13 9:40 | | | | | | PM PDT | | | | +-------+ +--------+---+---+ | Given | 11/10/19 | 150 mg | | | | | 13 8:47 | | | | | | PM PDT | | | | +-------+ +--------+---+---+ +---+---+ | | | +---+---+ documented in this encounter
--- OUTSIDE RECORDS SUMMARY | ~2019-05-10 | XMS | Encounter Summary ---
Demographics + + + | Address | [address] | | | [place] [address] | + + + | Home Phone [...] + | Katalina Padilla | ECON | [address] | | | | | [place], [place] | | | | | [address] | | + + + + + | Ellie Vang | ECON | Unknown | | + + + + + Care Team Providers + +------+ + | Care Traffic Attendant Name | Role | Phone | + +------+ + | Fadi Goodrich DO | PCP | | + +------+ + Encounter Details +--------+ + + + + | Date | Type | Department | Care Team | Description | +--------+ + + + + | 06/17/ | Abstract | [facility] | Shereen Georges, | | | 2012 | | [facility] at [facility] [address] | ACNP [address] | | | | | [address] | [address] [place], [place] | | | | | Mailcode: [place] | [id number] | | | | | [facility] and | | | | | | [facility] [address] | | | | | | [facility] [place] | | | | | | [address] | | | | | | | [...] [address]annery | | | | | | [place], [place] | | | | | | [address] | | | | | | [phone] | | | | | | | | +--------+ + + + + | 06/27/ | Telephone-S | Pre-operative | | | | 2019 | cheduled | Medicine | | | +--------+ + + + + | 06/30/ | Office | Cardiology | Randell Franks, | | | 2019 | Visit | [address] | | | | | | [place], [place] | | | | | | [address] | | | | | | [phone] | | | | | | | | +--------+ + + + + | 07/08/ | Procedure | Surgery | | | | 2019 | Pass | | | | +--------+ + + + + documented as of this encounter Visit Diagnoses Not on filedocumented in this encounter"
--- OUTSIDE RECORDS SUMMARY | ~2019-05-10 | XMS | Encounter Summary ---
Demographics + + + | Address | [address] | | | [place] [address] | + + + | Home Phone [...] [place], [place] | | | | | [address] | | + + + + + | Ellie Vang | ECON | Unknown | | + + + + + Care Team Providers + +------+ + | Care Modeling And Simulation Analyst Name | Role | Phone | + +------+ + | Fadi Goodrich DO | PCP | | + +------+ + Encounter Details +--------+------+ + + + | Date | Type | Department | Care Team | Description | +--------+------+ + + + | 11/20/ | Lab | Laboratory at [facility] | | 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 | | [address] | | BMI of 70 and over, | | | | [place], [place] | | adult ([facility]); | | | | [address] | | 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[phone] | | 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 ([facility]); | | | | | | Type 2 diabetes | | | | | | mellitus without | | | | | | complication, with | | | | | | long-term current | | | | | | use of insulin ([facility]) | +--------+------+ + + + [...] [address] | | | | | | [place], [place] | | | | | | [address] | | | | | | [phone] | | | | | | | | +--------+ + + + + | 06/27/ | Telephone-S | Pre-operative | | | | 2019 | cheduled | Medicine | | | +--------+ + + + + | 06/30/ | Office | Cardiology | TinyRandell, | | | 2018 | Visit | | [address] | | | | | | [place], [place] | | | | | | [address] | | | | | | [phone] | | | | | | | [...] | | | | | over, adult ([facility]) | | + +--------+ + + + | CBC (HEMOGRAM) ONLY | Routin | 11/20/2017 | Morbid obesity | Results for this | | | e | 10:01 AM | with BMI of 70 and | procedure are in the | | | | PDT | over, adult ([facility]) | results section. | | [...] | | | PDT | over, adult ([facility]) | results section. | | | | | 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| | 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 ([facility]) | | + +--------+ + + + | VITAMIN D, | Routin | 11/20/2017 | Morbid obesity | Results for this | | 25-HYDROXY, SERUM | e | 10:01 AM | with BMI of 70 and | procedure are in the | | | | PDT | over, adult ([facility]) | results section. | | | | | 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| | 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 ([facility]) | | + +--------+ + + + | COMPLETE METABOLIC | Routin | 11/20/2017 | Morbid obesity | Results for this | | SET | e | 10:01 AM | with BMI of 70 and | procedure are in the | | (NA,K,CL,CO2,BUN,CRE | | PDT | over, adult ([facility]) | results section. | | AT,GLUC,CA,AST,ALT,B | | | Diabetes mellitus | | | MARGIE TOTAL,ALK | | | type 2 without | | | PHOS,ALB,PROT TOTAL) |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 ([facility]) | | + +--------+ + + + | CBC ONLY | Routin | 11/20/2017 | Morbid obesity | Results for this | | | e | 10:01 AM | with BMI of 70 and | procedure are in the | | | | PDT | over, adult ([facility]) | results section. | | | | | 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| | 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 ([facility]) | | + +--------+ + + + | FERRITIN | Routin | 11/20/2017 | Morbid obesity | Results for this | | | e | 10:01 AM | with BMI of 70 and | procedure are in the | | | | PDT | over, adult ([facility]) | results section. | | | | | 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| | 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 ([facility]) | | + +--------+ + + + | PTH, SERUM | Routin | 11/20/2017 | Morbid obesity | Results for this | | | e | 10:01 AM | with BMI of 70 and | procedure are in the | | | | PDT | over, adult ([facility]) | results section. | | | | | 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| | 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 ([facility]) | | + +--------+ + + + | VITAMIN B-12 | Routin | 11/20/2017 | Morbid obesity | Results for this | | | e | 10:01 AM | with BMI of 70 and | procedure are in the | | | | PDT | over, adult ([facility]) | results section. | | | | | 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| | 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 ([facility]) | | + +--------+ + [...] | | | | use of insulin ([facility]) | | | | | | Morbid obesity | | | | | | with BMI of 70 and | | | | | | over, adult ([facility]) | | + +--------+ + + + | IRON AND TIBC, SERUM | Routin | 11/20/2017 | Morbid obesity | Results for this | | | e | 10:01 AM | with BMI of 70 and | procedure are in the | | | | PDT | over, adult ([facility]) | results section. | | | | | 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| | 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 ([facility]) | | + +--------+ + [...] | + + + + + | [employer] | [address] | [place] [address] | | | SERVICES, [place] [facility] | | | | | HEALTH [...] [facility] | [address] | [place], [place] | | | SERVICES, LIPID | [address] | [address] | | + + + + + [...] | [facility] | | considered for monitoring meat cooler glycemic control in patients with: | LABORATORY [...] | + + + + + | [facility] | [address] | [place] [address] | | | SERVICES, SPECIAL | [address]ARK [...] | | | | | determined by [employer] | | | | | | Laboratories. See | | | | | | Compliance Statement B: | | | | | | [employer]/CSPerformed | | | | | | by [employer],[address] | | | | | | Liliana Martinez, [facility],[place] | | | | | | [address] | | | | | | [phone]. | | | | | | [facility], Ismael Willis MD, | | | | | | Lab. Director | | | | + + + + + + + + | Specimen | + + | Blood - Blood | | (substance) | + + + + + + + | Performing | Address | City/[facility] | Phone Number | | Organization | | | | + + + + + | [facility] | [address] | [place], [place] | | | [facility] | | [address] | | + + + + + [...] | | | LABORATORY | | | S[place]GAL[place] | | | SERVICES, | | | [...] | + + + + + | [facility] | [address] | [place] [address] | | | SERVICES, CORE | P[address] [...] [facility] | [address] | [place] [address] | | | SERVICES, CORE | PARK [...] [facility] | [address] | [place] [address] | | | SERVICES, CORE | PARK [...] and | 50 - 200 ng/mL | [facility] | | | | Female >18 years: [...] | + + + + + | [employer] | [address] | [place] [address] | | | LYDIA RANGEL | CLARENCE [...] [facility] | [address] [facility] | [place] [address] | | | SERVICES, CORE | CLARENCE [...] [facility] | [address] | [place] [address] | | | SERVICES, CORE | CLARENCE [...]
--- OUTSIDE RECORDS SUMMARY | ~2019-05-10 | XMS | Encounter Summary ---
Demographics + + + | Address | [address] | | | [place] [address] | + + + | Home Phone [...] [place], [place] | | | | | [address] | | + + + + + | Ellie Vagn | ECON | Unknown | | + + + + + Care Team Providers + +------+ + | Care All Round Logger Name | Role | Phone | + +------+ + | Kenyatta Cardenas MD | PCP | | + +------+ + Encounter Details +--------+---------+ + + + | Date | Type | Department | Care Team | Description | +--------+---------+ + + + | 06/14/ | Office | Cardiology | Randell Franks, | Type 2 diabetes | | 2019 | Visit | Preventive at [facility] | MD [address] | mellitus without | | | | [address] | Ave [place], [place] | complication, with | | | | Mailcode: CH9A | [address] | long-term current | | | | [facility] | [phone] | use of insulin ([facility]) | | | | and Healing, | | (Primary Dx); | | | | [address] | | Morbid obesity with | | | | [place], [place] | | BMI of 70 and over, | | | | [address] | | adult (HCC) | | | | [phone] | | | +--------+---------+ + + + [...] daily. BELBUCA 300 mcg buccal film CALCIUM CRB&LMH-E2-GHA74-GENIS ORAL Take 2 tablets by mouth two [...] of metformin, and she reports her last cqjiw-nx-kdli A1 c was 5.5% on this dose. [...] CREATININE PLASMA (LAB) 0.85 0.70 EGFR - KYRGYZ >60 >60 EGFR NON -KYRGYZ >60 >60 GLUCOSE, PLASMA (LAB) 123 (H) [...] is currently being managed well by her Procedure Manager with diuretics and main tenance of her [...] management of her heart failure by her Procedure Manager 3) discontinue metformin 4) check 24 urine [...] [address] | | | | | | [place], [place] | | | | | | [address] | | | | | | [phone] | | | | | | | [...] | | | | | [place], [place] | | | | | | [address] | | | | | | [phone] | | | | | | | [...] | | | | use of insulin ([facility]) | | | | | | Morbid obesity | | | | | | with BMI of 70 and | | | | | | over, adult ([facility]) | | + +------+--------+ + + | TSH | Lab | Routin | Type 2 diabetes | Ordered: 01/07/2019 | | | | e | mellitus without | | | | | | complication, with | | | | | | long-term current | | | | | | use of insulin ([facility]) | | | | | | Morbid obesity | | | | | | with BMI of 70 and | | | | | | over, adult ([facility]) | | + +------+--------+ + + documented [...] - | | | | | | [place] | | + +---------+ + + + | TOTAL | 3,000 | mL | [facility] | | | VOLUME | | | LAB - | | | | | | [place] | | + +---------+ + + + + + | Specimen | + + | Urine - Urine | | (substance) | + + + + + + + | Performing | Address | City/State/Zipcode | Phone Number | | Organization | | | | + + + + + | [facility] | [address] | [place], [place] | [phone] | | [place] | | | | + + + [...]
--- OUTSIDE RECORDS SUMMARY | ~2019-05-10 | XMS | Encounter Summary ---
Demographics + + + | Address | [address] | | | [place] [address] | + + + | Home Phone [...] + | Katalina Padilla | ECON | [address] | | | | | [place], [place] | | | | | [address] | | + + + + + | Ellie Vang | ECON | Unknown | | + + + + + Care Team Providers + +------+ + | Care Federal Judicial Law Clerk Name | Role | Phone | [...] | | 2014 | | Preventive at [facility] | [address] | (Phentermine); | | | | [address] | [place], [place] | Refill Request | | | | Mailcode: Mihaela | [address] | | | | | [facility] | [phone] | | | | | and [address], | | | | | | [address] | | | | | | [place], [place] | | | | | | [address] | | | | | | [phone] | | | +--------+--------+ + + + [...] [address] | | | | | | [place], [place] | | | | | | [address] | | | | | | [phone] | | | | | | | | +--------+ + + + + | 06/27/ | Telephone-S | Pre-operative | | | | 2019 | cheduled | Medicine | | | +--------+ + + + + | 06/30/ | Office | Cardiology | Randell Franks, | | | 2019 | Visit | | MD [address] | | | | | | [place] [facility] [place] | | | | | | [address] | | | | | | [phone] | | | | | | | | +--------+ + + + + | 07/08/ | Procedure | Surgery | | | | 2019 | Pass | | | | +--------+ + + + + documented as of this encounter Visit Diagnoses Not on filedocumented in this encounter"
--- OUTSIDE RECORDS SUMMARY | ~2019-05-10 | XMS | Encounter Summary ---
Demographics + + + | Address | [address] | | | [place] [address] | + + + | Home Phone [...] + | Katalina Padilla | ECON | [address] | | | | | [place], [place] | | | | | [address] | | + + + + + | Ellie Vang | ECON | Unknown | | + + + + + Care Team Providers + +------+ + | Care Human Resources Director Name | Role | Phone | [...] [address] | | | | | [facility] | [facility] | | | | | [address] | [place], [place] | | | | | Mail Code: OC8PM | [address] | | | | | [facility] | [phone] | | | | | and Healing, | | | | | | [address] | | | | | | [place], [place] | | | | | | [address] | | | | | | [phone] | | | +--------+ + + + [...] [address] | | | | | | [place], [place] | | | | | | [address] | | | | | | [phone] | | | | | | | [...] | | | | | [place], [place] | | | | | | [address] | | | | | | [phone] | | | | | | | | +--------+ + + + + | 07/08/ | Procedure | Surgery | | | | 2019 | Pass | | | | +--------+ + + + + documented as of this encounter Visit Diagnoses Not on filedocumented in this encounter"
--- OUTSIDE RECORDS SUMMARY | ~2019-05-10 | XMS | Encounter Summary ---
Demographics + + + | Address | [address] | | | [place] [address] | + + + | Home Phone [...] + | Katalina Padilla | ECON | [address] | | | | | [place], [place] | | | | | [address] | | + + + + + | Ellie Vang | ECON | Unknown | | + + + + + Care Team Providers + +------+ + | Care Palaeontologist Name | Role | Phone | + [...] | | | | | | | [address] | | | | | | | [address] | | | | | | | [place], | | | | | | | [place] | | | | | | | [address] | | | | | | | Phone: | | | | | | | [phone] | | | | | | | Fax: | | | | | | | [phone] | +--------+--------+ + + + + Encounter Details +--------+---------+ + + + | Date | Type | Department | Care Team | Description | +--------+---------+ + + + | 04/14/ | Office | Digestive Health | Hernandez Brian, | Morbid obesity (HCC) | | 2013 | Visit | Center at [facility] [address] | [address] | (Primary Dx); Type | | | [address] | [address] | 2 diabetes mellitus | | | | Mailcode: Center | [place], [place] | ([facility]); [facility] | | | | for Health and | [address] | (obstructive sleep | | | | [facility] | [phone] | apnea); Edema | | | | [place], [place] | | | | | | [address] | | | | | | [phone] | | | +--------+---------+ + + + [...] REASON FOR VISIT: Recurrent incisional hernia. HISTORY: Elzbitea Cristina is a 38 y.o. morbidly obese female (BMI 72) with history of open appendectomy in 2010 an umbilical hernia repair, history of staph wound infection requiring incision and drainage and recurrent ventral hernia. Back in October of this year, she was tr ansferred from [facility] for surgical evaluation of possible incarcerated ventral [...] with close followup by her PCP in [place] in the interim. Dr. Guillory in [place] has been following her since January, with CT scan obtained at [facility] in [place] 02/09/2013 (images in IMPAX), demonstrating "recurrent hypogastric [...] to follow up with her providers at [facility] to include a visi t to our [...] before hernia repair. She saw Dr. Dr. Franks today who started her on phentermine and a fingerstick A1c was 5.0. She desires bypass surgery, per patient report has lost 112 lbs on her own and continues he r weight loss efforts. She saw a bar welder today and Melida came in to discuss [...] and well perfused. ABDOMEN: Type III pannus senior care to her knees. There is a well [...] [address] | | | | | | [place], [place] | | | | | | [address] | | | | | | [phone] | | | | | | | [...] | | | | | [place], [place] | | | | | | [address] | | | | | | [phone] | | | | | | | [...]
--- OUTSIDE RECORDS SUMMARY | ~2019-05-10 | XMS | Encounter Summary ---
Demographics + + + | Address | [address] | | | [place] [address] | + + + | Home Phone [...] [place], [place] | | | | | [address] | | + + + + + | Ellie Vang | ECON | Unknown | | + + + + + Care Team Providers + +------+ + | Care Livestock Feeder Name | Role | Phone | + [...] [address] | | | | | | [facility] [place] | | | | | | [address] | | | | | | [phone] | | | | | | | [...] | | | | | [place], [place] | | | | | | [address] | | | | | | [phone] | | | | | | | | +--------+ + + + + | 07/08/ | Procedure | Surgery | | | | 2019 | Pass | | | | +--------+ + + + + documented as of this encounter Visit Diagnoses Not on filedocumented in this encounter"
--- OUTSIDE RECORDS SUMMARY | ~2019-05-10 | XMS | Encounter Summary ---
Demographics + + + | Address | [address] | | | [place] [address] | + + + | Home Phone [...] [place], [place] | | | | | [address] | | + + + + + | Ellie Vang | ECON | Unknown | | + + + + + Care Team Providers + +------+ + | Care Gas Torch Brazier Name | Role | Phone | + +------+ + | Fadi Goodrich DO | PCP | | + +------+ + Encounter Details +--------+ + + + + | Date | Type | Department | Care Team | Description | +--------+ + + + + | 03/02/ | Abstract | Digestive Health | Hernandez Brian, | | | 2012 | | Center at [facility] [address] | MD [address] | | | | | [address] | [facility] | | | | | Mailcode: Center | [place], [place] | | | | | Health and | [address] | | | | | [facility] | [phone] | | | | | [place], [place] | | | | | | [address] | | | | | | [phone] | | | +--------+ + + + [...] [address] | | | | | | [place], [place] | | | | | | [address] | | | | | | [phone] | | | | | | | | +--------+ + + + + | 06/27/ | Telephone-S | Pre-operative | | | | 2019 | cheduled | Medicine | | | +--------+ + + + + | 06/30/ | Office | Cardiology | Randell Franks, | | | 2019 | Visit | | [address] | | | | | | [place], [place] | | | | | | [address] | | | | | | [phone] | | | | | | | | +--------+ + + + + | 07/08/ | Procedure | Surgery | | | | 2018 | Pass | | | | +--------+ + + + + documented as of this encounter Visit Diagnoses Not on filedocumented in this encounter"
--- OUTSIDE RECORDS SUMMARY | ~2019-05-10 | XMS | Encounter Summary ---
Demographics + + + | Address | [address] | | | [place] [address] | + + + | Home Phone [...] + | Katalina Padilla | ECON | [address] | | | | | [place], [place] | | | | | [address] | | + + + + + | Ellie Vang | ECON | Unknown | | + + + + + Care Team Providers + +------+ + | Care Journeyman Sheet Metal Worker Name | Role | Phone | [...] | | | [address] | [place], [place] | | | | | Mailcode: L223A | [address] | | | | | [facility] | [phone] | | | | | [address] [place], [place] | | | | | | [address] | | | | | | [phone] | | | +--------+---------+ + + + [...] Dr. Andie Brian Incisional hernia repair 02/2015 [facility]/ Dr. Cantu PHYSICAL EXAMINATION: BP 133/63 | [...] GENERAL SURGERY AT [facility] [address] [facility] Mailcode: L223a [place] [address] documented in this encounter Plan of Treatment +--------+ + + + + | Date | Type | Specialty | Care Team | Description | +--------+ + + + + | 05/13/ | Office | Plastic Surgery | Archie Ybarra MD | | | 2018 | Visit | | [address] | | | | | | [place], [place] | | | | | | [address] | | | | | | [phone] | | | | | | | [...] | | | | | [place], [place] | | | | | | [address] | | | | | | [phone] | | | | | | | [...]
--- OUTSIDE RECORDS SUMMARY | ~2019-05-10 | XMS | Encounter Summary ---
Demographics + + + | Address | [address] | | | [place] [address] | + + + | Home Phone [...] [place], [place] | | | | | [address] | | + + + + + | Ellie Vang | ECON | Unknown | | + + + + + Care Team Providers + +------+ + | Care Counter Intelligence Technician Name | Role | Phone | [...] | | 2015 | | Preventive at [facility] | MD [address] | | | | | [address] | [place], [place] | | | | | Mailcode: [facility] | [address] | | | | | [facility] | [phone] | | | | | and [address], | | | | | | [address] | | | | | | [place], [place] | | | | | | [address] | | | | | | [phone] | | | +--------+ + + + [...] [address] | | | | | | [place], [place] | | | | | | [address] | | | | | | [phone] | | | | | | | [...] | | | | | [place], [place] | | | | | | [address] | | | | | | [phone] | | | | | | | | +--------+ + + + + | 07/08/ | Procedure | Surgery | | | | 2018 | Pass | | | | +--------+ + + + + documented as of this encounter Visit Diagnoses Not on filedocumented in this encounter"
--- OUTSIDE RECORDS SUMMARY | ~2019-05-10 | XMS | Encounter Summary ---
Demographics + + + | Address | [address] | | | [place] [address] | + + + | Home Phone [...] + | Katalina Padilla | ECON | [address] | | | | | [place], [place] | | | | | [address] | | + + + + + | Ellie Vang | ECON | Unknown | | + + + + + Care Team Providers + +------+ + | Care Geochemist Name | Role | Phone | + +------+ + | Fadi Goodrich DO | PCP | | + +------+ + Encounter Details +--------+------+ + + + | Date | Type | Department | Care Team | Description | +--------+------+ + + + | 11/28/ | Lab | Laboratory at [facility] | | Essential | | 2017 | | [address] | | hypertension; Right | | | | [place], [place] | | heart failure (HCC); | | | | [address] | | Type 2 diabetes | | | | [phone] | | mellitus without | | | [...] [address] | | | | | | [place], [place] | | | | | | [address] | | | | | | [phone] | | | | | | | | +--------+ + + + + | 06/27/ | Telephone-S | Pre-operative | | | | 2018 | cheduled | Medicine | | | +--------+ + + + + | 06/30/ | Office | Cardiology | Randell Franks, | | | 2018 | Visit | | [address] | | | | | | [place], [place] | | | | | | [address] | | | | | | [phone] | | | | | | | [...] LDL | | PDT | heart failure ([facility]) | results section. | | | | [...] (NA,K,CL,CO2,BUN,CRE | | PDT | heart failure ([facility]) | results section. | | AT,GLUC,CA,AST,ALT,B | | | Type 2 diabetes | | | MARGIE TOTAL,ALK | | | mellitus without | | | PHOS,ALB,PROT TOTAL) | | | complication, with | | | | | | long-term current | | | | | | use of insulin ([facility]) | | + +--------+ + + + | TSH | Routin | 11/28/2016 | Essential | Results for this | | | e | 10:53 AM | hypertension Right | procedure are in the | | | | PDT | heart failure ([facility]) | results section. | | | | [...] | | | PDT | heart failure ([facility]) | results section. | | | | | Type 2 diabetes | | | | | | mellitus without | | | | | | complication, with | | | | | | long-term current | | | | | | use of insulin ([facility]) | | + +--------+ + + + [...] [facility] | [address] | [place] [address] | | | SERVICES, CORE | PARK [...] ranges effective May | [facility] | | 2015. | LABORATORY | | | SERVICES, LIPID | + + + + + + + + | Performing | Address | City/State/Zipcode | Phone Number | | Organization | | | | + + + + + | [facility] | [address] | [place], [place] | | | SERVICES, LIPID | [address] | [address] | | + + + + + [...] glycated albumin should be considered for monitoring advocacy director | LABORATORY | | glycemic control in [...] | + + + + + | [facility] | [address] | [place] [address] | | | SERVICES, SPECIAL | CLARENCE [...] | LABORATORY | | | [place] | | | SERVICES, | | | [...] | + + + + + | [facility] | [address] [facility] | [place] [address] | | | [address] | CLARENCE [...]
--- OUTSIDE RECORDS SUMMARY | ~2019-05-10 | XMS | Encounter Summary ---
Demographics + + + | Address | [address] | | | [place] [address] | + + + | Home Phone [...] [place], [place] | | | | | [address] | | + + + + + | Ellie Vang | ECON | Unknown | | + + + + + Care Team Providers + +------+ + | Care Vocational Education Professional Name | Role | Phone | [...] | | 2014 | | Center at [facility] [address] | [facility] [address] | | | | | [address] | [place], [place] | | | | | Mailcode: Center | [address] | | | | | for Health and | | | | | | [address] [address] | | | | | | [place], [place] | | | | | | [address] | | | | | | [phone] | | | +--------+ + + + [...] [address]ann[address] | | | | | | [place], [place] | | | | | | [address] | | | | | | [phone] | | | | | | | [...] | | | | | [place], [place] | | | | | | [address] | | | | | | [phone] | | | | | | | | +--------+ + + + + | 07/08/ | Procedure | Surgery | | | | 2019 | Pass | | | | +--------+ + + + + documented as of this encounter Visit Diagnoses Not on filedocumented in this encounter"
--- OUTSIDE RECORDS SUMMARY | ~2019-05-10 | XMS | Encounter Summary ---
Demographics + + + | Address | [address] | | | [place] [address] | + + + | Home Phone [...] [place], [place] | | | | | [address] | | + + + + + | Ellie Vang | ECON | Unknown | | + + + + + Care Team Providers + +------+ + | Care Program Support Assistant Name | Role | Phone | + +------+ + | Fadi Goodrich DO | PCP | | + +------+ + Encounter Details +--------+ + + + + | Date | Type | Department | Care Team | Description | +--------+ + + + + | 07/06/ | Abstract | Digestive Health | Clinic, Surgery | | | 2016 | | [place] [facility] [address] | | | | | | [address] | | | | | | Mailcode: [place] | | | | | | Health and | | | | | | [facility] 2 | | | | | | [place], [place] | | | | | | [address] | | | | | | [phone] | | | +--------+ + + + [...] Flannery | | | | | | [place], [place] | | | | | | [address] | | | | | | [phone] | | | | | | | | +--------+ + + + + | 06/27/ | Telephone-S | Pre-operative | | | | 2019 | cheduled | Medicine | | | +--------+ + + + + | 06/30/ | Office | Cardiology | Randell Franks, | | | 2018 | Visit | | [address] | | | | | | [place], [place] | | | | | | [address] | | | | | | [phone] | | | | | | | | +--------+ + + + + | 07/08/ | Procedure | Surgery | | | | 2018 | Pass | | | | +--------+ + + + + documented as of this encounter Visit Diagnoses Not on filedocumented in this encounter"
--- OUTSIDE RECORDS SUMMARY | ~2019-05-10 | XMS | Encounter Summary ---
Demographics + + + | Address | [address] | | | [place] [address] | + + + | Home Phone [...] + | Katalina Padilla | ECON | [address] | | | | | [place], [place] | | | | | [address] | | + + + + + | Ellie Vang | ECON | Unknown | | + + + + + Care Team Providers + +------+ + | Care Client Project Coordinator Name | Role | Phone | [...] | | | Procedures | | [address] [place], | | | | | [place] | | [place] | | | | | INITIAL | | [address] | | | | | ASSESSMNT | | | | | | | X15MIN [place] | | | | | | | [...] | 2012 | Visit | Center at [facility] [address] | [address] | mellitus (HCC) | | | | [address] | [address] | (Primary Dx); Morbid | | | | Mailcode: Center | [place], [place] | obesity (HCC) | | | | for Health and | [address] | | | | | Healing, [address] [address] | | | | | | [place], [place] | | | | | | [address] | | | | | | [phone] | | | +--------+---------+ + + + [...] PDTNutrition appointment, -try keeping food logs online: -www.TransactionTree -[place] Guía del Día -VidaPak -Aim for 6436-9521 calories a day -Increase physical activity -try [...] appropriate portions. Denies any binge eating. 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 Up [...] 1000/d--a more appropriate long-term range would be 0644-7826/day. Inadequat e calcium intake; did not address [...] w/ meals & snacks 2. Aim for 4803-5377 kcal/d 3. Keep food logs (at least [...] needed. Olga Lidia Montanez RD, LD Pager [phone] documented in this en counter Plan of Treatment +--------+ + + + + | Date | Type | Specialty | Care Team | Description | +--------+ + + + + | 05/13/ | Office | Plastic Surgery | Archie Ybarra MD | | | 2018 | Visit | | [address] | | | | | | [place], [place] | | | | | | [address] | | | | | | [phone] | | | | | | | [...] | | | | | [place], [place] | | | | | | [address] | | | | | | [phone] | | | | | | | [...] | + +--------+ + + + | [place] INITIAL | Routin | 04/14/2013 | [...]
--- OUTSIDE RECORDS SUMMARY | ~2019-05-10 | XMS | Encounter Summary ---
Demographics + + + | Address | [address] | | | [place] [address] | + + + | Home Phone [...] [place], [place] | | | | | [address] | | + + + + + | Ellie Vang | ECON | Unknown | | + + + + + Care Team Providers + +------+ + | Care Victorian Literature Professor Name | Role | Phone | [...] | | 2017 | | Preventive at [facility] | MD [address] | Request ([address] | | | | [address] | Ave [facility] [place] | mg) | | | | Mailcode: [place] | [address] | | | | | [facility] | [phone] | | | | | and [address], | | | | | | [address] | | | | | | [place], [place] | | | | | | [address] | | | | | | [phone] | | | +--------+ + + + [...] Flannery | | | | | | [place], [place] | | | | | | [address] | | | | | | [phone] | | | | | | | [...] | | | | | [place], [place] | | | | | | [address] | | | | | | [phone] | | | | | | | | +--------+ + + + + | 07/08/ | Procedure | Surgery | | | | 2019 | Pass | | | | +--------+ + + + + documented as of this encounter Visit Diagnoses Not on filedocumented in this encounter"
--- OUTSIDE RECORDS SUMMARY | ~2019-05-10 | XMS | Encounter Summary ---
Demographics + + + | Address | [address] | | | [place] [address] | + + + | Home Phone [...] [place], [place] | | | | | [address] | | + + + + + | Ellie Vang | ECON | Unknown | | + + + + + Care Team Providers + +------+ + | Care Forepart Laster Name | Role | Phone | + [...] | | | | and over, | [place], [place] | [facility] | | | | | adult (HCC) | [address] | for Health | | | | | Severe | Phone: | and Healing, | | | | | muscle | | Building [address], | | | | | deconditioni | Fax: | [address] | | | | | ng | [phone] | [place], [place] | | | | | Procedures | | [address] | | | | | PHYSICAL | | Phone: | | | | | THERAPY | | [phone] | | | | | REFERRAL | | Fax: | | | | | | | [phone] | +--------+--------+ + + + + Encounter Details +--------+ + + + + | Date | Type | Department | Care Team | Description | +--------+ + + + + | 02/02/ | Clinical Data Assistant | Digestive Health | Shereen Georges, | Morbid obesity with | | 2017 | | Center at [facility] [address] | ACNP [address] | BMI of 70 and over, | | | | [address] | Ave [facility] [place] | adult (HCC) (Primary | | | | Mailcode: Center | [address] | Dx); Severe muscle | | | | for Health and | | deconditioning | | | | Healing, [address] | | | | | | [place], [place] | | | | | | [address] | | | | | | | [...] Flannery | | | | | | [place], [place] | | | | | | [address] | | | | | | [phone] | | | | | | | [...] | | | | | [place], [place] | | | | | | [address] | | | | | | [phone] | | | | | | | [...]
--- OUTSIDE RECORDS SUMMARY | ~2019-05-10 | XMS | Encounter Summary ---
Demographics + + + | Address | [address] | | | [place] [address] | + + + | Home Phone [...] [place], [place] | | | | | [address] | | + + + + + | Ellie Vang | ECON | Unknown | | + + + + + Care Team Providers + +------+ + | Care Medical Laboratory Technical Officer Name | Role | Phone | + +------+ + | Fadi Goodrich DO | PCP | | + +------+ + Encounter Details +--------+---------+ + + + | Date | Type | Department | Care Team | Description | +--------+---------+ + + + | 01/11/ | Office | Digestive Health | | Morbid obesity (HCC) | | 2018 | Visit | Center at [facility] [address] | | (Primary Dx) | | | | [address] | | | | | | Mailcode: [place] | | | | | | [facility] Health and | | | | | | [facility] 2 | | | | | | [place], [place] | | | | | | [address] | | | | | | [phone] | | | +--------+---------+ + + + [...] of Class: 1055 until 1155 (60 minutes [id number]-[id number]-fgzx with patient) Teaching Methods: PowerPoint and verbal [...] a journal with fluid/protein d. Transportation 7. [place] [facility] Surgery 8. Surgical [...] Flannery | | | | | | [place], [place] | | | | | | [address] | | | | | | [phone] | | | | | | | [...] | | | | | [place], [place] | | | | | | [address] | | | | | | [phone] | | | | | | | [...]
--- OUTSIDE RECORDS SUMMARY | ~2019-05-10 | XMS | Encounter Summary ---
Demographics + + + | Address | [address] | | | [place] [address] | + + + | Home Phone [...] + | Katalina Padilla | ECON | [address] | | | | | [place], [place] | | | | | [address] | | + + + + + | Ellie Vang | ECON | Unknown | | + + + + + Care Team Providers + +------+ + | Care Music Copyist Name | Role | Phone | + [...] | 2016 | | Preventive at [facility] | MD [address] | | | | | [address] | Ave [place], [place] | | | | | Mailcode: CH9A | [address] | | | | | [facility] | [phone] | | | | | and Healing, | | | | | | [address] | | | | | | [facility] [place] | | | | | | [address] | | | | | | [phone] | | | +--------+ + + + [...] Flannery | | | | | | [place], [place] | | | | | | [address] | | | | | | [phone] | | | | | | | [...] | | | | | [place], [place] | | | | | | [address] | | | | | | [phone] | | | | | | | | +--------+ + + + + | 07/08/ | Procedure | Surgery | | | | 2019 | Pass | | | | +--------+ + + + + documented as of this encounter Visit Diagnoses Not on filedocumented in this encounter"
--- OUTSIDE RECORDS SUMMARY | ~2019-05-10 | XMS | Encounter Summary ---
Demographics + + + | Address | [address] | | | [place] [address] | + + + | Home Phone [...] + | Katalina Padilla | ECON | [address] | | | | | [place], [place] | | | | | [address] | | + + + + + | Ellie Vang | ECON | Unknown | | + + + + + Care Team Providers + +------+ + | Care General Partner Name | Role | Phone | [...] [id number] | | | | | | [facility] | | | | | | [place], [place] | | | | | | [address] | | | | | | [phone] | | | +--------+ + + + [...] Flannery | | | | | | [place], [place] | | | | | | [address] | | | | | | [phone] | | | | | | | | +--------+ + + + + | 06/27/ | Telephone-S | Pre-operative | | | | 2018 | cheduled | Medicine | | | +--------+ + + + + | 06/30/ | Office | Cardiology | Randell Franks, | | | 2018 | Visit | | [address] | | | | | | [place], [place] | | | | | | [address] | | | | | | [phone] | | | | | | | | +--------+ + + + + | 07/08/ | Procedure | Surgery | | | | 2018 | Pass | | | | +--------+ + + + + documented as of this encounter Visit Diagnoses Not on filedocumented in this encounter"
--- OUTSIDE RECORDS SUMMARY | ~2019-05-10 | XMS | Encounter Summary ---
Demographics + + + | Address | [address] | | | [place] [address] | + + + | Home Phone [...] [place], [place] | | | | | [address] | | + + + + + | Ellie Vang | ECON | Unknown | | + + + + + Care Team Providers + +------+ + | Care Rn Enterostomal Name | Role | Phone | + [...] | | 2014 | | Preventive at [facility] | [address] | (Phentermine); | | | | [address] | [place], [place] | Refill Request | | | | Mailcode: [place] | [address] | | | | | [facility] | [phone] | | | | | and [address], | | | | | | [address] | | | | | | [place], [place] | | | | | | [address] | | | | | | [phone] | | | +--------+--------+ + + + [...] Flannery | | | | | | [place], [place] | | | | | | [address] | | | | | | [phone] | | | | | | | [...] | | | | | [place] [facility] [place] | | | | | | [address] | | | | | | [phone] | | | | | | | | +--------+ + + + + | 07/08/ | Procedure | Surgery | | | | 2019 | Pass | | | | +--------+ + + + + documented as of this encounter Visit Diagnoses Not on filedocumented in this encounter"
--- OUTSIDE RECORDS SUMMARY | ~2019-05-10 | XMS | Encounter Summary ---
Demographics + + + | Address | [address] | | | [place] [address] | + + + | Home Phone [...] + | Katalina Padilla | ECON | [address] | | | | | [place], [place] | | | | | [address] | | + + + + + | Ellie Vang | ECON | Unknown | | + + + + + Care Team Providers + +------+ + | Care Moving Picture Operator Name | Role | Phone | [...] | | 2014 | | Preventive at [facility] | MD [address] | | | | | [address] | [place] [facility] [place] | | | | | Mailcode: [facility] | [address] | | | | | [facility] | [phone] | | | | | and [address] | | | | | | [address] | | | | | | [facility] [place] | | | | | | [address] | | | | | | [phone] | | | +--------+ + + + [...] | | | | | | [place], [place] | | | | | | [address] | | | | | | [phone] | | | | | | | [...] | | | | | [place], [place] | | | | | | [address] | | | | | | [phone] | | | | | | | | +--------+ + + + + | 07/08/ | Procedure | Surgery | | | | 2018 | Pass | | | | +--------+ + + + + documented as of this encounter Visit Diagnoses Not on filedocumented in this encounter"
--- OUTSIDE RECORDS SUMMARY | ~2019-05-10 | XMS | Encounter Summary ---
Demographics + + + | Address | [address] | | | [place] [address] | + + + | Home Phone [...] + | Katalina Padilla | ECON | [address] | | | | | [place], [place] | | | | | [address] | | + + + + + | Ellie Vang | ECON | Unknown | | + + + + + Care Team Providers + +------+ + | Care Veneer Manufacturer Name | Role | Phone | + [...] | | | | | | [place] [address] | | | +--------+ + + + [...] Flannery | | | | | | [place], [place] | | | | | | [address] | | | | | | [phone] | | | | | | | [...] | | | | | [place], [place] | | | | | | [address] | | | | | | [phone] | | | | | | | | +--------+ + + + + | 07/08/ | Procedure | Surgery | | | | 2019 | Pass | | | | +--------+ + + + + documented as of this encounter Visit Diagnoses Not on filedocumented in this encounter"
--- OUTSIDE RECORDS SUMMARY | ~2019-05-10 | XMS | Encounter Summary ---
Demographics + + + | Address | [address] | | | [place] [address] | + + + | Home Phone [...] [place], [place] | | | | | [address] | | + + + + + | Ellie Vang | ECON | Unknown | | + + + + + Care Team Providers + +------+ + | Care Asian Studies Professor Name | Role | Phone | [...] | | | | | essential | [address] | [address] | | | | | hypertension | [address], | Ave | | | | | Type II or | [address] | [place], [place] | | | | | unspecified | [place], [place] | [address] | | | | | type | [address] | Phone: | | | | | diabetes | Phone: | [phone] | | | | | mellitus | [phone] | Fax: | | | | | without | Fax: | [phone] | | | | | mention of | [phone] | | | | | | complication [...] | 2013 | Visit | Preventive at [facility] | [address] | mellitus (HCC) | | | | [address] | Ave [place], [place] | (Primary Dx); | | | | Mailcode: 9A | [address] | Migraine headache | | | | [facility] | [phone] | | | | | and [address], | | | | | | [address] | | | | | | [place], [place] | | | | | | [address] | | | | | | [phone] | | | +--------+---------+ + + + [...] she is hypothyroid and put her on [place] Thyroid hormone replacement therapy. Her heart rate [...] | | 2018 | Visit | | [address] | | | | | | [facility] [place] | | | | | | [address] | | | | | | [phone] | | | | | | | [...] | | | | | [place], [place] | | | | | | [address] | | | | | | [phone] | | | | | | | [...] | + + + + + | [facility] | [address] | [place] [address] | | | SERVICES, SPECIAL | CLARENCE [...]
--- OUTSIDE RECORDS SUMMARY | ~2019-05-10 | XMS | Encounter Summary ---
Demographics + + + | Address | [address] | | | [place] [address] | + + + | Home Phone | | + + + | Preferred Language | Unknown | + + + | Marital Status | | + + + | Spiritism Affiliation | Unknown | + + + | Race | Unknown | + + + | Ethnic Group | Unknown | + + + Author + + + | Author | [facility] | | | and [place] | + + + | Organization | [facility] | | | and [...] Team Providers + +------+ + | Care Ventilator Specialist Name | Role | Phone | [...] | specified | MD [address] | HAND CIGAR MAKING SUPERVISOR [address] | | | | | diseases of | [address] | [place], [place] | | | | | liver | [place], | [address] | | | | | Procedures | [place] | [place] | | | | | office visit | [address] | [address] Phone: | | | | | | Phone: | [phone] | | | | | | [phone] | Fax: | | | | | | Fax: | [phone] | | | | | | [phone] | | +--------+--------+ + + + + Encounter Details +--------+---------+ + + + | Date | Type | Department | Care Team | Description | +--------+---------+ + + + | 02/15/ | Office | [facility] [place] | [facility], | 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 She reports that approximately 3 months ago, [...] well. She is scheduled to see her [facility] surgeons within the next 2 weeks. [...] diastolic dysfunction (HCC) 10/26/2015 Overview: [facility] Last Assessment & Plan: Patient with morbid [...] o besity Pickwickian syndrome Recent admission to [facility] for 100lb weight gain- DC on [...] w Diabetes mellitus type 2 without retinopathy ([facility]) 04/14/2013 Diabetes mellitus with insulin therapy ([facility]) 12/27/2014 DM (diabetes mellitus) ([facility]) 05/09/2016 Overview: A1c 5.29 Aug 2014 Last [...] with morbid obesity, she is enrolled in [facility] bariatric program. She has lost [...] Plan: TSH WNL 10/2015. She is on t[place]nier thyroid as OP. -TSH WNL -continu e supplementation here Hypoventilation associated with obesity (HCC) 06/16/2013 Last Assessment & Plan: [facility] Bariatric Program, has lost 50lbs. STEFANO (iron deficiency anemia) 02/03/2019 Overview: Presumed due to menses. Venofer 200 qd x 30 October 2015 [facility] Last Assessment & P sharon: Hgb appears [...] to follow-up with surgeons at [facility] as planned. Patient is to call with [...]
--- OUTSIDE RECORDS SUMMARY | ~2019-05-10 | XMS | Encounter Summary ---
Demographics + + + | Address | [address] | | | [place] [address] | + + + | Home Phone [...] + | Katalina Padilla | ECON | [address] | | | | | [place], [place] | | | | | [address] | | + + + + + | Ellie Vang | ECON | Unknown | | + + + + + Care Team Providers + +------+ + | Care Oil Refinery Operator Name | Role | Phone | [...] | | | | | | [place] [address] | | | +--------+ + + + [...] 2018 | Visit | | [address] | | | | | | [place], [place] | | | | | | [address] | | | | | | [phone] | | | | | | | [...] | | | | | [place], [place] | | | | | | [address] | | | | | | [phone] | | | | | | | | +--------+ + + + + | 07/08/ | Procedure | Surgery | | | | 2018 | Pass | | | | +--------+ + + + + documented as of this encounter Visit Diagnoses Not on filedocumented in this encounter"
--- OUTSIDE RECORDS SUMMARY | ~2019-05-10 | XMS | Encounter Summary ---
Demographics + + + | Address | [address] | | | [place] [address] | + + + | Home Phone [...] [place], [place] | | | | | [address] | | + + + + + | Ellie Vnag | ECON | Unknown | | + + + + + Care Team Providers + +------+ + | Care Director Career Name | Role | Phone | + +------+ + | Fadi Goodrich DO | PCP | | + +------+ + Encounter Details +--------+ + + + + | Date | Type | Department | Care Team | Description | +--------+ + + + + | 06/09/ | Abstract | Cardiology | Randell Franks, | | | 2015 | | Preventive at [facility] | MD [address] | | | | | [address] | Ave [place], [place] | | | | | Mailcode: CH9A | [address] | | | | | [facility] | [phone] | | | | | and Healing, | | | | | | [address] | | | | | | [place], [place] | | | | | | [address] | | | | | | [phone] | | | +--------+ + + + [...] [address] | | | | | | [place], [place] | | | | | | [address] | | | | | | [phone] | | | | | | | [...] | | | | | [place], [place] | | | | | | [address] | | | | | | [phone] | | | | | | | | +--------+ + + + + | 07/08/ | Procedure | Surgery | | | | 2019 | Pass | | | | +--------+ + + + + documented as of this encounter Visit Diagnoses Not on filedocumented in this encounter"
--- OUTSIDE RECORDS SUMMARY | ~2019-05-10 | XMS | Encounter Summary ---
Demographics + + + | Address | [address] | | | [place] [address] | + + + | Home Phone [...] + | Katalina Padilla | ECON | [address] | | | | | [place], [place] | | | | | [address] | | + + + + + | Ellie Vang | ECON | Unknown | | + + + + + Care Team Providers + +------+ + | Care Accountant Bookkeeper Name | Role | Phone | + +------+ + | Fadi Goodrich DO | PCP | | + +------+ + Encounter Details +--------+------+ + + + | Date | Type | Department | Care Team | Description | +--------+------+ + + + | 08/28/ | Lab | Laboratory at [facility] | | Type 2 diabetes | | 2015 | | [address] | | mellitus (HCC) | | | | [place], [place] | | | | | | [address] | | | | | | [phone] | | | +--------+------+ + + + [...] [address] | | | | | | [place], [place] | | | | | | [address] | | | | | | [phone] | | | | | | | | +--------+ + + + + | 06/27/ | Telephone-S | Pre-operative | | | | 2019 | cheduled | Medicine | | | +--------+ + + + + | 06/30/ | Office | Cardiology | Randell Franks, | | | 2018 | Visit | [address] | | | | | | [place], [place] | | | | | | [address] | | | | | | [phone] | | | | | | | [...] OF [facility] | [address] | [place] [address] | | | SERVICES, CORE | PARK [...] | + + + + + | [facility] | [address] | [place] [address] | | | SERVICES, SPECIAL | PARK [...]
--- OUTSIDE RECORDS SUMMARY | ~2019-05-10 | XMS | Encounter Summary ---
Demographics + + + | Address | [address] | | | [place] [address] | + + + | Home Phone [...] + | Katalina Padilla | ECON | [address] | | | | | [place], [place] | | | | | [address] | | + + + + + | Ellie Vang | ECON | Unknown | | + + + + + Care Team Providers + +------+ + | Care Marine Tower Operator Name | Role | Phone | [...] | LAPAROSCOPIC | | 2013 | | [facility] | [address] | CHOLECYSTECOMY WITH | | | | Admitting Desk | Clarence Gutiérrez [place], | INTRA-OP | | | | Located on the | [place] [address] | CHOLANGIOGRAM | | | | floor [address] | [phone] | | | | | [address] | | | | | | [place], [place] | | | | | | [address] | | | +--------+---------+ + + + [...] the resident s note. PRADIP STARR MD [facility] [address]A [address] [employer] [facility] [place] [address] orrest, Maryam Yu MD - 1:05 PM PDT [facility] & [facility] DEPARTMENT OF SURGERY EMERGENCY GENERAL [...] Type 2 DM who presented to the [facility] ED ([place], [place]) on 02/06/14, with a week hi story of RUQ abdominal pain that radiates to her back. There, she was found to have leukocyt osis and multiple tiny, mobile stones, + sonographic Peterson's sign on abdominal ultrasound, concerning for acute cholecystitis. She was givenIV antibiotics (cipro, flagyl) and pain med s, then transferred to [facility] by [facility] for further care. Ms. Romero endorsed 02/02 [...] GOODRICH DO. Contact information [address] [place] [address] Follow up with Trauma Emergency General Surgery at [facility] In 4 weeks. (follow up in 2-4 weeks ) Contact information [address] [facility] Mailcode: L223a [facility] [place] [address] Thank you for the [...] the resident s note. PRADIP STARR MD [facility] [address] [place] [phone] orrest, Maryam Yu MD - 5:17 AM PDT [facility] & [facility] DEPARTMENT OF SURGERY EMERGENCY GENERAL SURGERY Division [...] tolerated MARYAM RHODES MD PGY-1, General Surgery 81411 pager number [facility] [place] A [address] [place] [facility] [place] [address] documented in this encoun ter Plan of Treatment +--------+ + + + + | Date | Type | Specialty | Care Team | Description | +--------+ + + + + | 05/13/ | Office | Plastic Surgery | Archie Ybarra MD | | | 2018 | Visit | | [address] | | | | | | [place], [place] | | | | | | [address] | | | | | | [phone] | | | | | | | [...] | | | | | [place], [place] | | | | | | [address] | | | | | | [phone] | | | | | | | [...] [facility] | [address] | [place], [place] | | | JUSTINE DAWN OF CARE | [address] | [address] | | | TESTS | | | [...] | 60 - 99 mg/dL | [facility] - | | | GLUCOSE, | | [...] AMES | [address] | [place], [place] | | | JUSTINE DAWN OF JAKY | [address] | [address] | | | TESTS | | | [...] [facility] | [address] | [place], [place] | | | JUSTINE DAWN OF CARE | [address] | [address] | | | TESTS | | | [...] [facility] | [address] | [place], [place] | | | [facility] POINT OF CARE | [address] | [address] | | | TESTS | | | [...] | + + + + + | [facility] | [address] | [place] [address] | | | SERVICES, | [address] [...] [facility] | [address] | [place] [address] | | | CLAIRE, | [address] | | | | [...] | 60 - 99 mg/dL | [facility] - | | | GLUCOSE, | | [...] MARQUAM | [address] | [place], [place] | | | JUSTINE DAWN OF [facility] | [address] | [address] | | | TESTS | | | [...] | + + + + + | [facility] | [address] | [place] [address] | | | SERVICES, CORE | [address] [...] [facility] | [address] | [place] [address] | | | SERVICES, LYDIA | [address] [...] mech. valves (2.5 - 3.5) INR | SERVICESLYDIA | + + + + + + + + | Performing | Address | City/State/Zipcode | Phone Number | | Organization | | | | + + + + + | [facility] | [address] | [place] [address] | | | SERVICES, LYDIA | [address] [...] [facility] | [address] | [place] [address] | | | SERVICES, CORE | PARK [...] | | | LABORATORY | | | TRINIDADIAN | | | SERVICES, | | | [...] + + + + + | [facility] | [address] [facility] | [place] [address] | | | CLAIRE, LYDIA | [address] [...] [facility] | [address] | [place], [place] | | | [employer] [place] [facility] | [facility] | [address] | | | TESTS | | | [...] pattern. | | | | | | Feller Operator | | | | | | sections [...] | + + + + + | [facility] | [address] | [place] [address] | | | PATHOLOGY | [address] [...] | | | | Until Thu02/07/14 at 1856 | | | | | | + +--------+ +-------+------+---------+ +-------+ +-------+---+---------+ | Given | 02/07/20 | 10 mL | | Abdomen | | | 14 4:30 | | | | | | PM PDT | | | | +-------+ +-------+---+---------+ +---+---+ | | | +---+---+ documented in this encounter
--- OUTSIDE RECORDS SUMMARY | ~2019-05-10 | XMS | Encounter Summary ---
Demographics + + + | Address | [address] | | | [place] [address] | + + + | Home Phone [...] + | Katalina Padilla | ECON | [address] | | | | | [place], [place] | | | | | [address] | | + + + + + | Ellie Vang | ECON | Unknown | | + + + + + Care Team Providers + +------+ + | Care Women Specialist Name | Role | Phone | [...] | 2019 | | Preventive at [facility] | [address] | stop any | | | | [address] | Ave [place], [place] | medications? ) | | | | Mailcode: Mihaela | [address] | | | | | [facility] | [phone] | | | | | and Healing, | | | | | | [address] | | | | | | [place], [place] | | | | | | [address] | | | | | | [phone] | | | +--------+ + + + [...] [address]annery | | | | | | [place], [place] | | | | | | [address] | | | | | | [phone] | | | | | | | | +--------+ + + + + | 06/27/ | Telephone-S | Pre-operative | | | | 2018 | cheduled | Medicine | | | +--------+ + + + + | 06/30/ | Office | Cardiology | Randell Franks, | | | 2018 | Visit | | [address] | | | | | | [place], [place] | | | | | | [address] | | | | | | [phone] | | | | | | | | +--------+ + + + + | 07/08/ | Procedure | Surgery | | | | 2019 | Pass | | | | +--------+ + + + + documented as of this encounter Visit Diagnoses Not on filedocumented in this encounter"
--- OUTSIDE RECORDS SUMMARY | ~2019-05-10 | XMS | Encounter Summary ---
Demographics + + + | Address | [address] | | | [place] [address] | + + + | Home Phone [...] [place], [place] | | | | | [address] | | + + + + + | Ellie Vang | ECON | Unknown | | + + + + + Care Team Providers + +------+ + | Care Apartment Leasing Manager Name | Role | Phone | [...] | 2014 | | Preventive at [facility] | MD [address] | | | | | [address] | [place] [facility] [place] | | | | | Mailcode: [facility] | [address] | | | | | [facility] | [phone] | | | | | and [address] | | | | | | [address] | | | | | | [facility] [place] | | | | | | [address] | | | | | | [phone] | | | +--------+ + + + [...] Flannery | | | | | | [place], [place] | | | | | | [address] | | | | | | [phone] | | | | | | | [...] | | | | | [place], [place] | | | | | | [address] | | | | | | [phone] | | | | | | | | +--------+ + + + + | 07/08/ | Procedure | Surgery | | | | 2018 | Pass | | | | +--------+ + + + + documented as of this encounter Visit Diagnoses Not on filedocumented in this encounter"
--- OUTSIDE RECORDS SUMMARY | ~2019-05-10 | XMS | Encounter Summary ---
Demographics + + + | Address | [address] | | | [place] [address] | + + + | Home Phone [...] [place], [place] | | | | | [address] | | + + + + + | Ellie Vang | ECON | Unknown | | + + + + + Care Team Providers + +------+ + | Care Lead Instructor/Flight Attendant Name | Role | Phone | [...] | | 2018 | | Center at [facility] [address] | ACNP [address] | | | | | [address] | [place], [place] | | | | | Mailcode: [place] | [address] | | | | | for Health and | [phone] | | | | | [place] [address] | | | | | | [place], [place] | | | | | | [address] | | | | | | [phone] | | | +--------+ + + + [...] Flannery | | | | | | [facility] [place] | | | | | | [address] | | | | | | [phone] | | | | | | | | +--------+ + + + + | 06/27/ | Telephone-S | Pre-operative | | | | 2018 | cheduled | Medicine | | | +--------+ + + + + | 06/30/ | Office | Cardiology | Randell Franks, | | | 2018 | Visit | | [address] | | | | | | Ave [place], [place] | | | | | | [address] | | | | | | [phone] | | | | | | | | +--------+ + + + + | 07/08/ | Procedure | Surgery | | | | 2018 | Pass | | | | +--------+ + + + + documented as of this encounter Visit Diagnoses Not on filedocumented in this encounter"
--- OUTSIDE RECORDS SUMMARY | ~2019-05-10 | XMS | Encounter Summary ---
Demographics + + + | Address | [address] | | | [place] [address] | + + + | Home Phone [...] + | Katalina Padilla | ECON | [address] | | | | | [place], [place] | | | | | [address] | | + + + + + | Ellie Vang | ECON | Unknown | | + + + + + Care Team Providers + +------+ + | Care Cartography Supervisor Name | Role | Phone | [...] | | | | Mailcode: Center | [place], [place] | with insulin therapy | | | | for Health and | [address] | (HCC) | | | | [facility] 2 | [phone] | | | | | [place], [place] | | | | | | [address] | | | | | | [phone] | | | +--------+---------+ + + + [...] of Visit: 1:30 to 1:55 (25 minutes srmf-oe-kkdt with patient). Pt seen tog ether with Rossana Espinoza RD (training) SUBJECTIVE: Working with RN to get access to MyVR water exercises. States she was down to 374lbs by following LRD but with complications (n/v, fainting) - need to obtain records from PCP [facility]. Food Allergies: No Current Physical Activity: Nothing - plans to start swimming this week Diet Recall [place] (100kcal) + Activia Light - 60kcal Atkins [...] post-surgery diet progression. 4. Call or send [employer] message to dietitian with any questions. Contact information was provided. Follow up with dietitian via telephone 1 week after beginning water exercises for weight ch addie. Yuli Childs RD, [facility], [place] Pager# [phone] Rossana Espinoza MS, RD Pgr #[phone] documented in this enco unter Plan of Treatment +--------+ + + + + | Date | Type | Specialty | Care Team | Description | +--------+ + + + + | 05/13/ | Office | Plastic Surgery | Archie Ybarra MD | | | 2018 | Visit | | [address] | | | | | | [place], [place] | | | | | | [address] | | | | | | [phone] | | | | | | | [...] | | | | | [place] [address], [place] | | | | | | [address] | | | | | | [phone] | | | | | | | [...] | DC MNT RE-ASSESSMNT | Routin | 12/27/2014 | Morbid obesity | | | X15MIN | e | 8:17 AM | ([facility]) Diabetes | | | | | PDT | mellitus with | | | | | | insulin therapy | | | | | | ([facility]) | | + +--------+ + + + documented in this encounter Visit Diagnoses + + | Diagnosis | + + | Morbid obesity ([facility]) - Primary Morbid obesity | + + | Diabetes mellitus with insulin therapy (HCC) | + + documented in this encounter
--- OUTSIDE RECORDS SUMMARY | ~2019-05-10 | XMS | Clinical Summary ---
Demographics + + + | Address | [address] | | | [place] [address] | + + + | Home Phone | | + + + | Preferred Language | Unknown | + + + | Marital Status | | + + + | Confucianism Affiliation | Unknown | + + + | Race | Unknown | + + + | Ethnic Group | Unknown | + + + Author + + + | Author | [facility] (Historical as of | | | 03-12-19) | + + + | Organization | [facility] (Historical as of | | | 03-12-19) [...] + +------+ + | Care Professor Of Physical Education Name | Role | Phone | + [...] | | | Activ | | (DRISDOL) 12370 | mouth twice a week. | | [...] | obesity, she is enrolled in the [facility] bariatric program. She has | [...] obesityPickwickian syndrome Recent | | admission to [facility] for 100lb weight | | gain- DC on diuresis on 03/06/2016- she feel improvedShe was on | | Metolazone and Torsemide prior to hospitalization- both have | | better bioavailability than lasix in gut edema but she retained | | 100lbs - how ever she is currently on only Torsemide 100mg Q12hrs | | started in [place] and her weight been stable sinceShe has no | | other complaints.She is pending to see NephrologistCiriloo | | 02/16/2016([facility])- Normal LV systolic function, mildly | [...] Dylan Romero Date of : 1975 | [facility] | | Performing Physician: Darryl Merrill | [...] MV A Jeffrey: 0.61 m/s MV Dec [place]: 2.43 m/s2 | | | MV DecT: 247.51 ms MV E Jeffrey: 0.60 m/s MV E/A Ratio: | | | 0.98 MV PHT: 71.78 ms MVA By PHT: 3.06 cm2 Septal e': | | | 0.06 m/s Septal E/e': 9.54 Lateral e': 0.10 m/s Lateral | | | E/e': 5.84 RAP: 5 mmHg RV s': 0.11 m/s Airport Tower Controller: | | | DH Authenticated by: Darryl [facility] Report Date/Time: 02-22-2019 | | | 20:8:36 | | + + + + --------+ | Procedure Note | + --------+ | Aditya, Rad Results In - 02/22/2019 8:10 PM PDT Patient Name: Sherrell Romero | | : 1975Accession: [id number] Physician: Darryl | | Alsamara INDICATIONS------ | [...] cmLVIDd: 4.70 cmLVPWd: 0.79 cmLVOT Area: 3.58 ri6EJNC Diam: 2.13 | | cm%FS: 39.25 %EF(Teich): [...] mlLAESV Index (A-L): 14.72 ml/m2LAAs A2C: 10.03 cy8PGJYD A-L A2C: 22.69 | | mlLALs A2C: 3.76 cmLAAs A4C: 13.41 ng6YWSMX A-L A4C: 36.80 mlLALs A4C: 4.14 | | cmRAAs: 11.18 wh9AWOCZ A-L: 22.84 mlRAESV MOD: 22.10 mlRALs: 4.64 cmTAPSE: | | 2.04 cmAV maxP.55 mmHgAV meanP.52 mmHgAV Vmax: 1.27 m/Genesis Vmean: 0.88 | | m/Genesis VTI: 26.50 cmAVA Vmax: 2.49 cm2AVA (VTI): 2.39 al1PTQJ Vmax: 0.00 | | cm2/m2AVAI (VTI): 0.00 cm2/m2LVOT maxP.17 mmHgLVOT meanP.82 mmHgLVSI Dopp: | | 30.83 ml/m2LVSV Dopp: 63.52 mlLVOT Vmax: 0.89 m/sLVOT Vmean: 0.65 m/sLVOT VTI: | | 17.71 cmMV A Jeffrey: 0.61 m/sMV Dec [place]: 2.43 m/s2MV DecT: 247.51 msMV E Jeffrey: | | 0.60 m/sMV E/A Ratio: 0.98 MV PHT: 71.78 msMVA By PHT: 3.06 pj4Ycpsrb e': 0.06 | | m/sSeptal E/e': 9.54 Lateral e': 0.10 m/sLateral E/e': 5.84 RAP: 5 mmHgRV s': | | 0.11 m/sSonographer: DHAuthenticated by: Darryl [place] [facility] Date/Time: 02-22-2019 | | 20:8:36IMPRESSION:1. Overall left [...] A Jeffrey: 0.61 m/s | |MV Dec [place]: 2.43 m/s2 | |MV DecT: 247.51 ms | |MV E Jeffrey: 0.60 m/s | |MV E/A Ratio: 0.98 | |MV PHT: 71.78 ms | |MVA By PHT: 3.06 cm2 | |Septal e': 0.06 m/s | |Septal E/e': 9.54 | |Lateral e': 0.10 m/s | |Lateral E/e': 5.84 | |RAP: 5 mmHg | |RV s': 0.11 m/s | | | |Airport Tower Controller: | |Authenticated by: Darryl Merrill | |Report [...] [facility] | [address] | [place] [address] | | + + + + + [...] +------+-------+ + | MEDICAID | [place] | [id number] | | | [address] | | | [place] | | | | [place] | | | [place] | | | | [address] | | | PLASTIC PRINTER | | | | | + +--------+ [...] | mireya | | | [address] | [address] | + +--------+ +--------+ + +
--- OUTSIDE RECORDS SUMMARY | ~2019-05-10 | XMS | Encounter Summary ---
Demographics + + + | Address | [address] | | | [place] [address] | + + + | Home Phone [...] [place], [place] | | | | | [address] | | + + + + + | Ellie Vang | ECON | Unknown | | + + + + + Care Team Providers + +------+ + | Care Project Management Professional Name | Role | Phone | + +------+ + | Fadi Goodrich DO | PCP | | + +------+ + Encounter Details +--------+ + + + + | Date | Type | Department | Care Team | Description | +--------+ + + + + | 02/15/ | Abstract | Digestive Health | Hernandez Brian, | | | 2012 | | Center at [facility] [address] | MD [address] | | | | | [address] | [facility] | | | | | Mailcode: Center | [place], [place] | | | | | [facility] and | [address] | | | | | [facility], [facility] 2 | [phone] | | | | | [place], [place] | | | | | | [address] | | | | | | [phone] | | | +--------+ + + + [...] Flannery | | | | | | [place], [place] | | | | | | [address] | | | | | | [phone] | | | | | | | | +--------+ + + + + | 06/27/ | Telephone-S | Pre-operative | | | | 2019 | cheduled | Medicine | | | +--------+ + + + + | 06/30/ | Office | Cardiology | Randell Franks, | | | 2019 | Visit | | [address] | | | | | | [place], [place] | | | | | | [address] | | | | | | [phone] | | | | | | | | +--------+ + + + + | 07/08/ | Procedure | Surgery | | | | 2018 | Pass | | | | +--------+ + + + + documented as of this encounter Visit Diagnoses Not on filedocumented in this encounter"
--- OUTSIDE RECORDS SUMMARY | ~2019-05-10 | XMS | Encounter Summary ---
Demographics + + + | Address | [address] | | | [place] [address] | + + + | Home Phone [...] [place], [place] | | | | | [address] | | + + + + + | Ellie Vang | ECON | Unknown | | + + + + + Care Team Providers + +------+ + | Care Spar Machine Operator Name | Role | Phone [...] + + | 06/23/ | Hospital | [facility] [address] | Kaleb Wilcox MD | | | 2017 | Encounter | [address] | [address] | | | | | [address]/[address] | [place], [place] | | | | | [place], | [address] | | | | | [place] [address] | [phone] | | | | | [phone] | | | +--------+ + + + [...] hours or on weekends and holiday Hospital Explosives Handler toll free [phone] ext. [phone] and have the GI doctor cast iron dipper paged. The provider who performed your procedure is: Dr. Wilcox Results of your EGD: Dilation performed. You may resume your regular diet. Follow up Appointments with: Follow up with Dr. Pandey in bariatric surgery, thank you for choosing [facility]! Your primary care provider or referring [...] | | 0 | | | | CRB&AEK-W3-GPR86-GEN | mouth two times | | | [...] | | | | | | | leonid/jimenat | | | | | | | [...] 2:35 PM PST PRE PROCEDURE NOTE: MR# [id number] Subjective: Elzbieta Cristina is a 43 y.o. [...] [address]ann[address] | | | | | | [place] | | | | | | [address] | | | | | | [phone] | | | | | | | [...] [place] | | | | | | [address] | | | | | | [phone] | | | | | | | [...] -----+ | MRN: | [facility] | | [id number] Date: 06/23/2018Patient Name: Elzbieta Curtis #: | ENDOSCOP Y | | [id number] of : 1975CSN: [id number] Type: | | | AmbulatoryRoom: SORProcedure: Upper GI | | | endoscopyIndications: Nausea with vomiting, Status post | | | Uvrs-rn-GJwrpopojz: KALEB WILCOX MD (Doctor), JOSE | | | [place]IM[place], Government Guard | | | (Government Guard)Referring MD: DANIELLE GARCÍAPRemateusz | | | Provider: [...] | | | The Olympus GIF-HQ190 Gastroscope #[id number] was | | | introduced through the [...] endoscope without resistance. The | | | esgpv-ct-zqrvrri limb was characterized by healthy appearing | [...] Initiated On: | | | 06/23/2018 3:58 [facility] Letter to: FADI GOODRICH DO | [...] AMES | [address] | [place], [place] | | | [facility]WN OF [facility] | [address] | [address] | | | TESTS | | | [...] | | | | | | Until [facility] 06/24/18 at 0027, | | | [...] PRN, 1 dose, | | | Starting 06/23/18 at 1532, | | | Until [facility] 06/24/18 at 0027, | | | [...] | | | 06/23/18 at 1532, Until [facility] | | | | | | | [...]
--- OUTSIDE RECORDS SUMMARY | ~2019-05-10 | XMS | Encounter Summary ---
Demographics + + + | Address | [address] | | | [place] [address] | + + + | Home Phone [...] + | Katalina Padilla | ECON | [address] | | | | | [place], [place] | | | | | [address] | | + + + + + | Ellie Vang | ECON | Unknown | | + + + + + Care Team Providers + +------+ + | Care Lpn Instructor Name | Role | Phone | [...] | | 2019 | | Preventive at [facility] | [address] | re-test? ) | | | | [address] | [place], [place] | | | | | Mailcode: EARL | [address] | | | | | [facility] | [phone] | | | | | and [address], | | | | | | [address] | | | | | | [place], [place] | | | | | | [address] | | | | | | [phone] | | | +--------+ + + + [...] Flannery | | | | | | [facility] [place] | | | | | | [address] | | | | | | [phone] | | | | | | | [...] | | | | | [address] [place] [place], [place] | | | | | | [address] | | | | | | [phone] | | | | | | | [...]
--- OUTSIDE RECORDS SUMMARY | ~2019-05-10 | XMS | Encounter Summary ---
Demographics + + + | Address | [address] | | | [place] [address] | + + + | Home Phone [...] + | Katalina Padilla | ECON | [address] | | | | | [place], [place] | | | | | [address] | | + + + + + | Ellie Vang | ECON | Unknown | | + + + + + Care Team Providers + +------+ + | Care Plaster Maker Name | Role | Phone | [...] 06/23/ | Surgery | 6A Intra Op [facility] | Kaleb Wilcox MD | UPPER ENDOSCOPY | | 2018 | | [facility] | [address] | | | | | Admitting Desk | [place], [place] | | | | | Located on the | [address] | | | | | floor [address] [facility] | [phone] | | | | | [address] | | | | | | [place], [place] | | | | | | [address] | | | +--------+---------+ + + + [...] the endoscopy department toll free [phone]. [phone] or After business hours or on weekends and holiday Hospital Director Broadcast toll free ext. [phone] and have the GI doctor video control operator paged. The provider who performed your procedure [...] | | 0 | | | | CRB&QPT-I8-WDV57-GEN | mouth two times | | | [...] 2:35 PM PST PRE PROCEDURE NOTE: MR# [id number] Subjective: Elzbieta Cristina is a 43 y.o. [...] | | 2018 | Visit | | [address] | | | | | | [place], [place] | | | | | | [address] | | | | | | [phone] | | | | | | | [...] | | | | | [place], [place] | | | | | | [address] | | | | | | [phone] | | | | | | | [...] -----+ | MRN: | [facility] | | [id number] Date: 06/23/2018Patient Name: Elzbieta Curtis #: | [place] | | [id number] of : 1975CSN: [id number] Type: | | | AmbulatoryRoom: SORProcedure: Upper GI | | | endoscopyIndications: Nausea with vomiting, Status post | | | Ztjp-mu-JVlldjwqsc: KALEB WILCOX MD (Doctor)JOSE | | | [place] Concrete Batching Plant Operator | | | (Concrete Batching Plant Operator)Referring MD: DANIELLE GARCÍAPRequestdonya | | | Provider: [...] | | | The Olympus [id number] Gastroscope #[id number] was | | | introduced through the [...] endoscope without resistance. The | | | dsotc-zw-toobtxh limb was characterized by healthy appearing | [...] | | | 06/23/2018 3:58 [facility] Letter to: FADI GOODRICH DO | | [...] + + | Performing | Address | City/State[facility] | Phone Number | | [...] + + + | [facility] | [address] | [place], [place] | | | [facility] | [facility] | [address] | | | TESTS | | | [...] | | | | | | Until [facility] 06/24/18 at 0027, | | | [...] 06/23/18 at 1532, | | | Until [facility] 06/24/18 at 0027, | | | [...]
--- OUTSIDE RECORDS SUMMARY | ~2019-05-10 | XMS | Encounter Summary ---
Demographics + + + | Address | [address] | | | [place] [address] | + + + | Home Phone [...] + | Katalina Padilla | ECON | [address] | | | | | [place], [place] | | | | | [address] | | + + + + + | Ellie Vang | ECON | Unknown | | + + + + + Care Team Providers + +------+ + | Care Multicraft Operator Name | Role | Phone | [...] | | | | | | | [place] [facility] | | | | | | | Health and | | | | | | | Healing, | | | | | | | Building [address] | | | | | | | [place], [place] | | | | | | | [address] | | | | | | | Phone: | | | | | | | [phone] | | | | | | | Fax: | | | | | | | [phone] | +--------+--------+ + + + + Encounter [...] | [address] | Lesly Gutiérrez [place], | 2 diabetes mellitus | | | | Mailcode: Center | [place] [address] | (HCC) | | | | for Health and | | | | | | [facility] 2 | | | | | | [place], [place] | | | | | | [address] | | | | | | [phone] | | | +--------+---------+ + + + [...] of Visit: 12:29 to 12:57 (28 minutes [id number] with patient) SUBJECTIVE: Trying to follow a [...] post-surgery diet progression. 4. Call or send [employer] message to dietitian with any questions. Contact information was provided. Follow up with dietitian prior to surgery to review post-surgical recommendations. Yuli Childs RD, CNSC, LD Pager# [phone] documented in this enco unter Plan of Treatment +--------+ + + + + | Date | Type | Specialty | Care Team | Description | +--------+ + + + + | 05/13/ | Office | Plastic Surgery | Archie Ybarra MD | | | 2018 | Visit | | [address] | | | | | | [place], [place] | | | | | | [address] | | | | | | [phone] | | | | | | | [...] | | | | | [place], [place] | | | | | | [address] | | | | | | [phone] | | | | | | | [...] | + +--------+ + + + | [place] MNT RE-ASSESSMNT | Routin | 08/28/2014 | Morbid obesity | | | X15MIN | e | 4:45 PM | ([facility]) Type 2 | | | [...]
--- OUTSIDE RECORDS SUMMARY | ~2019-05-10 | XMS | Encounter Summary ---
Demographics + + + | Address | [address] | | | [place] [address] | + + + | Home Phone [...] [place], [place] | | | | | [address] | | + + + + + | Ellie Vang | ECON | Unknown | | + + + + + Care Team Providers + +------+ + | Care Coldfusion Name | Role | Phone | + [...] | Pain | Diagnoses | Analisa Georges Instrumental Musician Psych | | | | Management | Morbid | DANIELLE BrunerP | [address] | | | | | obesity with | [address] | | | | | BMI of [address] | [address] | Mailcode: | | | | | and over, | [place], [place] | [facility]15[facility] Center | | | | | adult (HCC) | [address] | for Health | | | | | Procedures | Phone: | and Healing, | | | | | CONSULT TO | [phone] | Building 1, | | | | | PAIN | Fax: | 15th Floor | | | | | MANAGEMENT | [phone] | [place], [place] | | | | | [place] | | [address] | | | | | PSYCHIATRIC | | Phone: | | | | | DIAGNOSTIC | | [phone] | | | | | EVAL, NO MED | | Fax: | | | | | [facility] [place] | | [phone] | | | | | PSYCH TSTNG [...] | B[facility] Surg | | | with SCRUB TECHNICIAN | | hypertension | [address] | [address] | | | | | Right | [address] | [address] | | | | | heart | [place], [place] | Mailcode: | | | | | failure | [address] | Center for | | | | | ([facility]) Type | Phone: | Health and | | | | | 2 diabetes | [phone] | Healing, | | | | | mellitus | Fax: | Building 2 | | | | | without | [phone] | [place], [place] | | | | | complication | | [address] | | | | | , with | | Phone: | | | | | long-term | | [phone] | | | | | current use | | Fax: | | | | | of insulin | | [phone] | | | | | ([facility]) | | | | | | | [...] | | [address] | Ave [place], [place] | adult ([facility]) (Primary | | | | Mailcode: Center | [address] | Dx); Chronic | | | | for Health and | | 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 These classes will be scheduled apporoximately 1 month apart to allow time for you to put the teaching into action. Please call [phone] + Labs needed: Pre op: drug screen [...] are done + EKG: Please Have your boiler fitter do the eval and send it to us + Pre-op Psychological Evaluation: Your referral is at [facility], The Pain Management Office will call you [...] be safely completed. + Sign up for [employer] so that we can communicate easily back and forth Once the above list is completed and copies have been received by our office, we will submi t for insurance authorization then schedule with the surgeon. KAIN De Dios DNP, WEATHER CLERK Nurse Practitioner for Bariatric Surgery [facility] | [address] | [place], [place] | [address] | documented in this encounter Progress Notes Shereen Georges ACNP - 02/02/2017 9:00 AM PDTFormatting of this note might be different f rom the original. BARIATRIC INITIAL VISIT Provider: Shereen Pinto DNP, KAIN, WEATHER CLERK Referring Provider: Fadi Goodrich DO Reason for [...] t loss. Consults: Cardiology: Dr. Edson Livingston [facility] Vice President Fixed Income: Nickie : [facility] Paula But comes to magen Jig And Fixture Builder Apprentice at [facility]: Dr. Zhong for weight loss medication Adventism or cultural reason you would refuse blood [...] once daily., Disp : , Rfl: CALCIUM [id number] ORAL, Take 2 tablets by mouth two [...] Andie Brian Incisional hernia repair 03/01/2015 [facility]/ Dr. Cantu. Primary fascial closure and scar [...] History Narrative Updated 11/09/15 She lives in [place] with her mother and her sister (also her caregiver) lives in an [facility] below. She has 2 grandchildren (age 4 and 7) who live with her daughter and son-in-law Her boyfriend lives in [place] Family History Problem Relation Heart Attack Father [...] extre mity edema, hypertension, hyperlipidemia. Denies CHF, AR, ischemic heart disease, or pulmon nikki hypertension. [...] years without success. She qualifies [facility] to control co-morbidities. [...] management, and was referred as well to rolling down machine operator. Plan: Request that her boiler fitter clear her, and make recommendations 3. Mammogram: [...] to your private appointme nt with the interior designer. These classes will be scheduled apporoximately 1 month apart to allow time for you to put the teaching into action. Please call [phone] + Labs needed: lipids, CBC, CMP, TSH, [...] are done + EKG: Please Have your boiler fitter do the eval and send it to us + Pre-op Psychological Evaluation: Your referral is at [facility], The Pain Management Office will call you [...] be safely completed. + Sign up for [employer] so that we can communicate easily back and forth Once the above list is completed and copies have been received by our office, we will submi t for insurance authorization then schedule with the surgeon. KAIN De Dios DNP, WEATHER CLERK Nurse Practitioner for Bariatric Surgery [facility] | [address] | [place], [place] | [address] | documented in this encounter Plan of Treatment +--------+ + + + + | Date | Type | Specialty | Care Team | Description | +--------+ + + + + | 05/13/ | Office | Plastic Surgery | Archie Ybarra MD | | | 2018 | Visit | | [address] | | | | | | [place], [place] | | | | | | [address] | | | | | | [phone] | | | | | | | [...] | | | | | [place], [place] | | | | | | [address] | | | | | | [phone] | | | | | | | [...]
--- OUTSIDE RECORDS SUMMARY | ~2019-05-10 | XMS | Encounter Summary ---
Demographics + + + | Address | [address] | | | [place] [address] | + + + | Home Phone [...] [place], [place] | | | | | [address] | | + + + + + | Ellie Vang | ECON | Unknown | | + + + + + Care Team Providers + +------+ + | Care Family Reunification Specialist Name | Role | Phone | [...] [address] | | | | | | [facility] [place] | | | | | | [address] | | | | | | [phone] | | | | | | | [...] | | | | | [place], [place] | | | | | | [address] | | | | | | [phone] | | | | | | | | +--------+ + + + + | 07/08/ | Procedure | Surgery | | | | 2019 | Pass | | | | +--------+ + + + + documented as of this encounter Visit Diagnoses Not on filedocumented in this encounter"
--- OUTSIDE RECORDS SUMMARY | ~2019-05-10 | XMS | Encounter Summary ---
Demographics + + + | Address | [address] | | | [place] [address] | + + + | Home Phone [...] [place], [place] | | | | | [address] | | + + + + + | Ellie Vang | ECON | Unknown | | + + + + + Care Team Providers + +------+ + | Care End Worker Name | Role | Phone | [...] | LAPAROSCOPIC | | 2013 | | [facility] | [address] | CHOLECYSTECOMY WITH | | | | Admitting Desk | Clarence Gutiérrez [place], | INTRA-OP | | | | Located on the | [place] [address] | CHOLANGIOGRAM | | | | floor [address] | [phone] | | | | | [address] | | | | | | [place], [place] | | | | | | [address] | | | +--------+---------+ + + + [...] the resident s note. PRADIP STARR MD [facility] [address] [facility] [address] orrest, Maryam Yu MD - 1:05 PM PDT [facility] DEPARTMENT OF SURGERY EMERGENCY GENERAL SURGERY [...] Type 2 DM who presented to the [facility] ([place], [place]) on 02/06/14, with a week hi story of RUQ abdominal pain that radiates to her back. There, she was found to have leukocyt osis and multiple tiny, mobile stones, + sonographic Peterson's sign on abdominal ultrasound, concerning for acute cholecystitis. She was givenIV antibiotics (cipro, flagyl) and pain med s, then transferred to [facility] by [facility] for further care. Ms. Romero endorsed [...] up with Trauma Emergency General Surgery at [facility] In 4 weeks. (follow up in 2-4 weeks ) Contact information [address] [facility] Mailcode: L223a [facility] [place] [address] Thank you for the [...] the resident s note. PRADIP STARR MD [facility] [address] [place] [id number] orrest, Maryam Yu MD - 5:17 AM PDT [facility] DEPARTMENT OF SURGERY EMERGENCY GENERAL SURGERY Division [...] tolerated MARYAM RHODES MD PGY-1, General Surgery [phone] pager number [facility] A [address] [place] [facility] [place] [address] documented in this encoun ter Plan of Treatment +--------+ + + + + | Date | Type | Specialty | Care Team | Description | +--------+ + + + + | 05/13/ | Office | Plastic Surgery | Archie Ybarra MD | | | 2018 | Visit | | [address] | | | | | | [place], [place] | | | | | | [address] | | | | | | [phone] | | | | | | | [...] | | | | | [place], [place] | | | | | | [address] | | | | | | [phone] | | | | | | | [...] KWAKU | [address] | [place], [place] | | | JUSTINE DAWN OF CARE | [address] | [address] | | | TESTS | | | [...] (H) | 60 - 99 mg/dL | [facility] - | | | GLUCOSE, | [...] AMES | [address] | [place], [place] | | | JUSTINE DAWN OF JAKY | [address] | [address] | | | TESTS | | | [...] MARQUAM | [address] | [place], [place] | | | JUSTINE DAWN OF CARE | [address] | [address] | | | TESTS | | | [...] KWAKU | [address] | [place], [place] | | | [place] POINT OF CARE | [address] | [address] | | | TESTS | | | [...] | + + + + + | [employer] | [address] | [place] [address] | | | SERVICES, | [address] [...] [facility] | [address] | [place] [address] | | | CLAIRE, | [address] [...] (H) | 60 - 99 mg/dL | [facility] - | | | GLUCOSE, | [...] MARQUAM | [address] | [place], [place] | | | JUSTINE DAWN OF [facility] | [address] | [address] | | | TESTS | | | [...] | + + + + + | [employer] | [address] | [place] [address] | | | SERVICES, CORE | PARK [...] [facility] | [address] | [place] [address] | | | SERVICES, LYDIA | [address] [...] | + + + + + | [facility] | [address] | [place] [address] | | | SERVICES, LYDIA | [address] [...] [facility] | [address] | [place] [address] | | | SERVICES, CORE | PARK [...] | | | LABORATORY | | | [place] | | | SERVICES, | | | [...] | + + + + + | [facility] | [address] [facility] | [place] [address] | | | CLAIRE, LYDIA | [address] [...] KWAKU | [address] | [place], [place] | | | [place] [facility] | [facility] | [address] | | | TESTS | | | [...] pattern. | | | | | | Technology Instructor | | | | | | sections [...] | + + + + + | [facility] | [address] | [place] [address] | | | PATHOLOGY | [address] [...]
--- OUTSIDE RECORDS SUMMARY | ~2019-05-10 | XMS | Encounter Summary ---
Demographics + + + | Address | [address] | | | [place] [address] | + + + | Home Phone [...] + | Katalina Padilla | ECON | [address] | | | | | [place], [place] | | | | | [address] | | + + + + + | Ellie Vang | ECON | Unknown | | + + + + + Care Team Providers + +------+ + | Care Childcare Director Name | Role | Phone | [...] | | 2017 | | Preventive at [facility] | MD [address] | | | | | [address] | [place] [facility] [place] | | | | | Mailcode: [facility] | [address] | | | | | [facility] | [phone] | | | | | and Erick | | | | | | [address] | | | | | | [facility] [place] | | | | | | [address] | | | | | | [phone] | | | +--------+ + + + [...] [address] | | | | | | [place], [place] | | | | | | [address] | | | | | | [phone] | | | | | | | [...] | | | | [place], [place] | | | | | | [address] | | | | | | [phone] | | | | | | | | +--------+ + + + + | 07/08/ | Procedure | Surgery | | | | 2018 | Pass | | | | +--------+ + + + + documented as of this encounter Visit Diagnoses Not on filedocumented in this encounter"
--- OUTSIDE RECORDS SUMMARY | ~2019-05-10 | XMS | Encounter Summary ---
Demographics + + + | Address | [address] | | | [place] [address] | + + + | Home Phone [...] [place], [place] | | | | | [address] | | + + + + + | Ellie Vang | ECON | Unknown | | + + + + + Care Team Providers + +------+ + | Care Ways Operator Name | Role | Phone | [...] | | | | | | [place] [address] | | | +--------+ + + + [...] | | 2018 | Visit | | [address] | | | | | | [place], [place] | | | | | | [address] | | | | | | [phone] | | | | | | | | +--------+ + + + + | 06/27/ | Telephone-S | Pre-operative | | | | 2018 | cheduled | Medicine | | | +--------+ + + + + | 06/30/ | Office | Cardiology | Randell Frnaks, | | | 2018 | Visit | | [address] | | | | | | [place], [place] | | | | | | [address] | | | | | | [phone] | | | | | | | | +--------+ + + + + | 07/08/ | Procedure | Surgery | | | | 2018 | Pass | | | | +--------+ + + + + documented as of this encounter Visit Diagnoses Not on filedocumented in this encounter"
--- OUTSIDE RECORDS SUMMARY | ~2019-05-10 | XMS | Encounter Summary ---
Demographics + + + | Address | [address] | | | [place] [address] | + + + | Home Phone [...] + | Katalina Padilla | ECON | [address] | | | | | [place], [place] | | | | | [address] | | + + + + + | Ellie Vang | ECON | Unknown | | + + + + + Care Team Providers + +------+ + | Care Carpet Binder Name | Role | Phone | + [...] Ave | | | | Order | [facility] | [place], [place] | | | | | [address] | [address] | | | | | Mailcode: OC2L | [phone] | | | | | [facility] | | | | | | and Healing, | | | | | | Building [address] | | | | | | [facility] [place] | | | | | | [address] | | | | | | [phone] | | | +--------+ + + + [...] [address] | | | | | | [place], [place] | | | | | | [address] | | | | | | [phone] | | | | | | | [...] | | | | | [place], [place] | | | | | | [address] | | | | | | [phone] | | | | | | | [...]
--- OUTSIDE RECORDS SUMMARY | ~2019-05-10 | XMS | Encounter Summary ---
Demographics + + + | Address | [address] | | | [place] [address] | + + + | Home Phone [...] + | Katalina Padilla | ECON | [address] | | | | | [place], [place] | | | | | [address] | | + + + + + | Ellie Vang | ECON | Unknown | | + + + + + Care Team Providers + +------+ + | Care Rewriter Name | Role | Phone | + [...] | | | | | (HCC) | [place], [place] | Mailcode: | | | | | Procedures | [address] | [address] [facility] | | | | | CT ABDOMEN & | Phone: | Hospital | | | | | [address] | | [place], [place] | | | | | IV CONTRAST | Fax: | [address] | | | | | [place] | [phone] | Phone: | | | | | ABDOMEN&PELV | | [phone] | | | | | IS | | Fax: | | | | | W/CONTRAST | | [phone] | | | | | See chart [...] | | | | | | [address] | | | | | | [address] | | | | | | | Mailcode: | | | | | | | [facility] | | | | | | | Health and | | | | | | | Healing, | | | | | | | [address] | | | | | | | [place], [place] | | | | | | | [address] | | | | | | | Phone: | | | | | | | [phone] | | | | | | | Fax: | | | | | | | [phone] | +--------+--------+ + + + + Encounter [...] | | [address] | Ave [place], [place] | obesity (HCC) | | | | Mailcode: [place] | [address] | | | | | for Health and | [phone] | | | | | [facility] 2 | | | | | | [place], [place] | | | | | | [address] | | | | | | [phone] | | | +--------+---------+ + + + [...] up in th e air, Use a political science chair.... And get it really dry. Then use corn starch ..... Then use medicated powder... Please go to the 3rd floor for the study... [place] [address] documented in this encounter Progress Notes Shereen Pinto ACNP - 10/02/2014 11:14 AM PDTFormatting of this note might be different fro m the original. BARIATRIC INITIAL VISIT Provider: Shereen Pinto DNP, ACNP, GAS LEAK INSPECTOR HELPER Referring Provider: Dr. Goodrich Reason for Requested [...] with the surgeon. Shereen Pinto DNP, ACNP, GAS LEAK INSPECTOR HELPER Nurse Practitioner for Bariatric Surgery [facility] | [address] | [place], [place] | [address] | Potential Contraindications to Bariatric Surgery Age [...] | | 2018 | Visit | | [address] | | | | | | [place], [place] | | | | | | [address] | | | | | | [phone] | | | | | | | [...] | | | | | [place], [place] | | | | | | [address] | | | | | | [phone] | | | | | | | [...] | | | | | rylie / LETICIA | | | | | | PETER 10/02/2014 16:19 | | | | | | PM Pending final | | | | | | stacy / MARIANGEL EDMONDS | | | | | | 10/02/2014 15:52 PM | | | | | | Talia / MARIANGEL | | | | | [...]
--- OUTSIDE RECORDS SUMMARY | ~2019-05-10 | XMS | Encounter Summary ---
Demographics + + + | Address | [address] | | | [place] [address] | + + + | Home Phone [...] [place], [place] | | | | | [address] | | + + + + + | Ellie Vang | ECON | Unknown | | + + + + + Care Team Providers + +------+ + | Care Sludge Mill Operator Name | Role | Phone | [...] | | | | | | [facility] | | | | | | [place], [place] | | | | | | [address] | | | | | | [phone] | | | +--------+ + + + [...] [address] | | | | | | [place], [place] | | | | | | [address] | | | | | | [phone] | | | | | | | [...] | | | | | [place] [facility] [place] | | | | | | [address] | | | | | | [phone] | | | | | | | [...] OTOOLE, | | | | | | MGraham-Radiologist 2: | | | | | | SUSHILA OTOOLE | | | | | | MDYLAN ONEILL | | | | | | | [...] | | + +---------+ + + | [facility] DEPARTMENT OF | | | | | RADIOLOGY | | | | + +---------+ + + ANG/EXIST CATH/FU/EMB/INFU (05/15/1993 9:30 AM PDT) + + + [...] | | + +---------+ + + | [facility] DEPARTMENT OF | | | | [...] | | | | | | 3/3, 08/01. OPERATION #2: | | | | | [...] | | | | navigated a #5.5 [place] | | | | | | Ozzy [...] | | + +---------+ + + | [facility] DEPARTMENT OF | | | | [...] | | + +---------+ + + | [facility] DEPARTMENT OF | | | | [...] | | + +---------+ + + | [facility] DEPARTMENT OF | | | | | RADIOLOGY | | | | + +---------+ + + ANG/EXIST CATH/FU/EMB/INFU (05/14/1993 6:45 AM PDT) + + + [...] | | + +---------+ + + | [facility] DEPARTMENT OF | | | | [...] | | | | | ANGIO | DLYAN | | | | | | | [...] | | | | | | a#5.5 [place] sheath was | | | | | | secured into place. In | | | | | | a similar fashion, | | | | | | a#7.0 [place] sheath was | | | | | [...] | | | | | The #7 [place] Brite | | | | | | [...] | | + +---------+ + + | [facility] DEPARTMENT OF | | | | [...] | | + +---------+ + + | [facility] DEPARTMENT OF | | | | | RADIOLOGY | | | | + +---------+ + + documented in this encounter Visit Diagnoses Not on filedocumented in this encounter
--- OUTSIDE RECORDS SUMMARY | ~2019-05-10 | XMS | Encounter Summary ---
Demographics + + + | Address | [address] | | | [place] [address] | + + + | Home Phone [...] [place], [place] | | | | | [address] | | + + + + + | Ellie Vang | ECON | Unknown | | + + + + + Care Team Providers + +------+ + | Care Tobacco Sizer Name | Role | Phone | [...] NISH EN | | 2017 | | [facility] | MD [address] | Y GASTRIC BYPASS | | | | Admitting Desk | [place], [place] | | | | | Located on the | [address] | | | | | floor [address] [facility] | [phone] | | | | | [address] | | | | | | [place], [place] | | | | | | [address] | | | +--------+---------+ + + + [...] Gavin ACNP - 03/03/2018 9:49 AM PDT [facility] RED SURGERY INPATIENT DISCHARGE SUMMARY Author: [...] to a bariatric full liquid diets. Our [facility] dietitian was consulted and they discussed her [...] in the immediate post operative period following péerz atric surgery, the patient's diuretic medication was [...] at minimum. 5. Follow with PCP for Bander And Cellophaner Machine within 1 - 2 weeks of discharge [...] mg by mouth two times daily. CALCIUM CRB&MBB-C2-XFC29-GENIS ORAL Take 2 tablets by mouth two [...] yogurt or kefir. Zaria's Yogurt or Kefir, Tealiumfield Yogurt, and NewsBreakn i Kyrgyz Yogurt are common brands with beneficial probiotics. [...] are available over the counter at most [facility] stores. Nausea/Vomiting/Difficulty Swallowing Nausea/Vomiting/Difficulty swallowing: Could [...] hours per your instructions. Some medications, like Ulm, have Tylenol in it. Make sure you [...] (PCP) as this clinic does not provide [facility]. When [...] hours by calling the surgery office at [phone]. - After hours, weekends and holidays, you may call the hospital bander operator at [phone] an d have the online health and fitness coach Red Surgery Team paged. OTHER DISCHARGE ORDERS [...] at minimum. 5. Follow with PCP for Bander And Cellophaner Machine within 1 - 2 weeks of discharge [...] Department Dept Phone Center 03/10/2018 1:30 PM [facility] at [facility] 6th Floor [phone] FO OD AND NUT 03/10/2018 3:05 PM Ronna Clarke Digestive [facility] at [facility] 6th Floor [phone] [facility] 04/01/2018 10:30 AM [facility] at [facility] 6th Floor [phone] FO OD AND NUT 04/01/2018 11:00 AM Ion Castanon Digestive [facility] at [facility] 6th Floor [phone] [facility] 05/27/2018 2:30 PM [facility] at [facility] 6th Floor [phone] FO OD AND NUT 05/27/2018 3:05 PM [facility] 6th Floor [phone] [facility] 05/27/2018 4:30 PM [facility] at [facility] 15th Floor [phone] Comprehensiv 06/04/2018 10:35 AM Randell Franks Cardiology Preventive at [facility] [phone] Cardiology Discharging Physician: KAIN Agee Attending Physician: Ion Castanon MD [facility] Red Surgery Pager# [phone] 9:50 AM 03/03/2018 documented in this enco [...] | | 0 | | | | CRB&HPE-C3-DME97-GEN | mouth two times | | | [...] documented as of this encounter Progress Notes RajwinderHenrietta troncosoclifford - 03/03/2018 6:32 AM PDTFormatting of this note might be different from jennifer mendiola. RED Surgical Team: Foregut/Bariatrics Daily Progress Note Admission Date: 03/01/2018 (Length of Stay: 2 day) Author: MULUGETA CALIXTO Attending Provider: Ion Castanon MD ID: [...] for care ride home (pt lives in [place]) Demarcus Alas M.D. General Surgery Resident PGY-1 Pager: [phone] Ion Ferrari MD - 10:00 AM PDTI [...] [address] | | | | | | [place], [place] | | | | | | [address] | | | | | | [phone] | | | | | | | [...] | | | | | [address], [place] | | | | | | [address] | | | | | | [phone] | | | | | | | [...] POC | | PDT | over, adult ([facility]) | results section. | + +--------+ + + + | CAPILLARY BLOOD | Routin | 03/03/2018 | Morbid obesity | Results for this | | GLUCOSE (NO CHG), | e | 6:28 AM | with BMI of 70 and | procedure are in the | | POC | | PDT | over, adult ([facility]) | results section. | + +--------+ + + + | CAPILLARY BLOOD | Routin | 03/02/2018 | Morbid obesity | Results for this | | GLUCOSE (NO CHG), | e | 9:17 PM | with BMI of 70 and | procedure are in the | | POC | | PDT | over, adult ([facility]) | results section. | + +--------+ + + + | CAPILLARY BLOOD | Routin | 03/02/2018 | Morbid obesity | Results for this | | GLUCOSE (NO CHG), | e | 6:50 PM | with BMI of 70 and | procedure are in the | | POC | | PDT | over, adult ([facility]) | results section. | + +--------+ + + + | CAPILLARY BLOOD | Routin | 03/02/2018 | Morbid obesity | Results for this | | GLUCOSE (NO CHG), | e | 3:46 PM | with BMI of 70 and | procedure are in the | | POC | | PDT | over, adult ([facility]) | results section. | + +--------+ + + + | CAPILLARY BLOOD | Routin | 03/02/2018 | Morbid obesity | Results for this | | GLUCOSE (NO CHG), | e | 2:36 PM | with BMI of 70 and | procedure are in the | | POC | | PDT | over, adult ([facility]) | results section. | + +--------+ + + + | CAPILLARY BLOOD | Routin | 03/02/2018 | Morbid obesity | Results for this | | GLUCOSE (NO CHG), | e | 1:33 PM | with BMI of 70 and | procedure are in the | | POC | | PDT | over, adult ([facility]) | results section. | + +--------+ + + + | CAPILLARY BLOOD | Routin | 03/02/2018 | Morbid obesity | Results for this | | GLUCOSE (NO CHG), | e | 11:36 AM | with BMI of 70 and | procedure are in the | | POC | | PDT | over, adult ([facility]) | results section. | + +--------+ + + + | CAPILLARY BLOOD | Routin | 03/02/2018 | Morbid obesity | Results for this | | GLUCOSE (NO CHG), | e | 10:32 AM | with BMI of 70 and | procedure are in the | | POC | | PDT | over, adult ([facility]) | results section. | + +--------+ + + + | CAPILLARY BLOOD | Routin | 03/02/2018 | Morbid obesity | Results for this | | GLUCOSE (NO CHG), | e | 9:23 AM | with BMI of 70 and | procedure are in the | | POC | | PDT | over, adult ([facility]) | results section. | + +--------+ + + + | CAPILLARY BLOOD | Routin | 03/02/2018 | Morbid obesity | Results for this | | GLUCOSE (NO CHG), | e | 8:36 AM | with BMI of 70 and | procedure are in the | | POC | | PDT | over, adult ([facility]) | results section. | + +--------+ + + + | CAPILLARY BLOOD | Routin | 03/02/2018 | Morbid obesity | Results for this | | GLUCOSE (NO CHG), | e | 7:35 AM | with BMI of 70 and | procedure are in the | | POC | | PDT | over, adult ([facility]) | results section. | + +--------+ + + + | CAPILLARY BLOOD | Routin | 03/02/2018 | Morbid obesity | Results for this | | GLUCOSE (NO CHG), | e | 6:33 AM | with BMI of 70 and | procedure are in the | | POC | | PDT | over, adult ([facility]) | results section. | + +--------+ + + + | CAPILLARY BLOOD | Routin | 03/02/2018 | Morbid obesity | Results for this | | GLUCOSE (NO CHG), | e | 5:28 AM | with BMI of 70 and | procedure are in the | | POC | | PDT | over, adult ([facility]) | results section. | + +--------+ + + + | CAPILLARY BLOOD | Routin | 03/02/2018 | Morbid obesity | Results for this | | GLUCOSE (NO CHG), | e | 4:36 AM | with BMI of 70 and | procedure are in the | | POC | | PDT | over, adult ([facility]) | results section. | + +--------+ + + + | CAPILLARY BLOOD | Routin | 03/02/2018 | Morbid obesity | Results for this | | GLUCOSE (NO CHG), | e | 2:46 AM | with BMI of 70 and | procedure are in the | | POC | | PDT | over, adult ([facility]) | results section. | + +--------+ + + + | CAPILLARY BLOOD | Routin | 03/02/2018 | Morbid obesity | Results for this | | GLUCOSE (NO CHG), | e | 12:32 AM | with BMI of 70 and | procedure are in the | | POC | | PDT | over, adult ([facility]) | results section. | + +--------+ + + + | CAPILLARY BLOOD | Routin | 03/01/2018 | Morbid obesity | Results for this | | GLUCOSE (NO CHG), | e | 10:31 PM | with BMI of 70 and | procedure are in the | | POC | | PDT | over, adult ([facility]) | results section. | + +--------+ + + + | CAPILLARY BLOOD | Routin | 03/01/2018 | Morbid obesity | Results for this | | GLUCOSE (NO CHG), | e | 8:21 PM | with BMI of 70 and | procedure are in the | | POC | | PDT | over, adult ([facility]) | results section. | + [...] POC | | PDT | over, adult ([facility]) | results section. | + +--------+ + + + | CAPILLARY BLOOD | Routin | 03/01/2018 | Morbid obesity | Results for this | | GLUCOSE (NO CHG), | e | 3:31 PM | with BMI of 70 and | procedure are in the | | POC | | PDT | over, adult ([facility]) | results section. | + +--------+ + + + | CAPILLARY BLOOD | Routin | 03/01/2018 | Morbid obesity | Results for this | | GLUCOSE (NO CHG), | e | 3:29 PM | with BMI of 70 and | procedure are in the | | POC | | PDT | over, adult ([facility]) | results section. | + +--------+ + + + | CAPILLARY BLOOD | Routin | 03/01/2018 | Morbid obesity | Results for this | | GLUCOSE (NO CHG), | e | 2:30 PM | with BMI of 70 and | procedure are in the | | POC | | PDT | over, adult ([facility]) | results section. | + +--------+ + + + | CAPILLARY BLOOD | Routin | 03/01/2018 | Morbid obesity | Results for this | | GLUCOSE (NO CHG), | e | 1:35 PM | with BMI of 70 and | procedure are in the | | POC | | PDT | over, adult ([facility]) | results section. | + +--------+ + + + | CAPILLARY BLOOD | Routin | 03/01/2018 | Morbid obesity | Results for this | | GLUCOSE (NO CHG), | e | 12:16 PM | with BMI of 70 and | procedure are in the | | POC | | PDT | over, adult ([facility]) | results section. | + [...] GASTRIC | ve | 8:31 AM | ([facility]) | | | BYPASS | [...] - MARQUAM | [address] | [place], [place] | | | [facility] | [address] | [address] | | | TESTS | | | [...] AMES | [address] | [place], [place] | | | [facility] | [address] | [address] | | | TESTS | | | [...] MARQUAM | [address] | [place], [place] | | | [facility] | [address] | [address] | | | TESTS | | | [...] MARPATAM | [address] | [place], [place] | | | [facility] | [facility] | [address] | | | TESTS | | | [...] AMES | [address] | [place], [place] | | | [facility] | [address] | [address] | | | TESTS | | | [...] MARQUAM | [address] | [place], [place] | | | [facility] | [address] | [address] | | | TESTS | | | [...] KWAKU | [address] | [place], [place] | | | [facility] | [address] | [address] | | | TESTS | | | [...] AMES | [address] | [place], [place] | | | [facility] | [address] | [address] | | | TESTS | | | [...] MARQUAM | [address] | [place], [place] | | | [facility] | [address] | [address] | | | TESTS | | | [...] - KWAKU | [address] | [place], [place] | | | [facility] | [address] | [address] | | | TESTS | | | [...] AMES | [address] | [place], [place] | | | [facility] | [address] | [address] | | | TESTS | | | [...] MARQUAM | [address] | [place], [place] | | | [facility] | [address] | [address] | | | TESTS | | | [...] - KWAKU | [address] | [place], [place] | | | [facility] | [facility] | [address] | | | TESTS | | | | + + + + + CAPILLARY BLOOD GLUCOSE (NO CHG), POC (03/02/2018 6:33 AM PDT) + +-------+ + + + | Component | Value | Ref Range | Performed | Pathologist | | | | | At | Signature | + +-------+ + + + | BLOOD | 96 | 70 - 99 mg/dL | NKECHI [...] AMES | [address] | [place], [place] | | | [facility] | [address] | [address] | | | TESTS | | | [...] AMES | [address] | [place], [place] | | | [facility] | [address] | [address] | | | TESTS | | | [...] YAKOVAM | [address] | [place], [place] | | | [facility] | [facility] | [address] | | | TESTS | | | [...] AMES | [address] | [place], [place] | | | [facility] | [address] | [address] | | | TESTS | | | [...] AMES | [address] | [place], [place] | | | [facility] | [address] | [address] | | | TESTS | | | [...] KWAKU | [address] | [place], [place] | | | [facility] | [facility] | [address] | | | TESTS | | | [...] AMES | [address] | [place], [place] | | | [facility] | [address] | [address] | | | TESTS | | | [...] KWAKU | [address] | [place], [place] | | | [facility] | [address] | [address] | | | TESTS | | | [...] - KWAKU | [address] | [place], [place] | | | [facility] | [facility] | [address] | | | TESTS | | | | + + + + + CAPILLARY BLOOD GLUCOSE (NO CHG), POC (03/01/2018 3:29 PM PDT) + +-------+ + + + | Component | Value | Ref Range | Performed | Pathologist | | | | | At | Signature | + +-------+ + + + | BLOOD | 74 | 70 - 99 mg/dL | NKECHI [...] AMES | [address] | [place], [place] | | | [facility] | [address] | [address] | | | TESTS | | | [...] KWAKU | [address] | [place], [place] | | | [facility] | [address] | [address] | | | TESTS | | | [...] KWAKU | [address] | [place], [place] | | | [facility] | [facility] | [address] | | | TESTS | | | [...] AMES | [address] | [place], [place] | | | [facility] | [address] | [address] | | | TESTS | | | | + + + + + EGD (ESOPHAGOGASTRODUODENOSCOPY) (03/01/2018 11:21 AM PDT) + + + | Narrative | Performed At | + + + | Ion Castanon MD 03/01/2018 12:25 PM Date of Procedure: | | | 03/01/18 Primary Surgeon: Ion Castanon MD Co Surgeon or | | | painter assistant: Eldon Gonzalez MD, Chief Resident Alexx [...] The jejunum was divided with 60 mm [place] stapler with white | | | load [...] created in each limb and a 60mm [place] stapler | | | with white load was fired to create a [id number]-[id number] | | | jejunojejunostomy. The anastamosis was confirmed to be widely | | | patent and hemostatic. The common enterotomy was closed by placing | | | 2 stay sutures along the enterotomy for retraction and firing an | | | [place] 60mm stapler with white load across the [...] | | | was entered. The 60mm [place] stapler with blue load was placed | [...] blue load of the 60mm stapler. The [place] was then fired | | | longitudinally towards the angle of His to create the gastric pouch, | | | leaving the gastrotomy from foreign body removal, on the pouch. | | | Dissection was performed retrogastric to connect posterior and | | | anterior dissection planes and ensure adequate fundus exclusion. | | | Additional fires of the [place] stapler were performed with blue | | [...] with | | | 5 mm clip sign erector. A 25mm Orvil was passed transorally by [...] was closed with 60mm | | | [place] stapler with a white load. Medially and [...] was present | | | as my painter assistant for the entire procedure, given the technically | | | challenging nature of this procedure. She assisted in all critical | | | steps of the procedure. Dr. Gonzalez was present for endoscopy at the | | | end of the procedure. Ion Castanon MD, FACS, [facility] | | | Bariatric Surgery | | + + + LAPAROSCOPIC GASTRIC BYPASS AND NISH-EN-Y GASTROENTEROSTOMY WITH NISH LIMB 150 CM OR LESS ( 03/01/2018 11:21 AM PDT) + + + | Narrative | Performed At | + + + | Ion Castanon MD 03/01/2018 12:25 PM Date of Procedure: | | | 08/06/18 Primary Surgeon: Ion Castanon MD Co Surgeon or | | | painter assistant: Eldon Gonzalez MD, Chief Resident Alexx | | | Akankshaolman MS4 Preoperative Diagnosis: Morbid Obesity with BMI [...] The jejunum was divided with 60 mm [place] stapler with white | | | load [...] created in each limb and a 60mm [place] stapler | | | with white load was fired to create a phwq-cw-ryvt | | | jejunojejunostomy. The anastamosis was confirmed to be widely | | | patent and hemostatic. The common enterotomy was closed by placing | | | 2 stay sutures along the enterotomy for retraction and firing an | | | [place] 60mm stapler with white load across the [...] | | | was entered. The 60mm [place] stapler with blue load was placed | [...] blue load of the 60mm stapler. The [place] was then fired | | | longitudinally towards the angle of His to create the gastric pouch, | | | leaving the gastrotomy from foreign body removal, on the pouch. | | | Dissection was performed retrogastric to connect posterior and | | | anterior dissection planes and ensure adequate fundus exclusion. | | | Additional fires of the [place] stapler were performed with blue | | [...] with | | | 5 mm clip sign erector. A 25mm Orvil was passed transorally by [...] was closed with 60mm | | | [place] stapler with a white load. Medially and [...] was present | | | as my painter assistant for the entire procedure, given the technically | | | challenging nature of this procedure. She assisted in all critical | | | steps of the procedure. Dr. Gonzalez was present for endoscopy at the | | | end of the procedure. Ion Castanon MD, FACS, [facility] | | | Bariatric Surgery | [...] + + + | NKECHI AMES | [address] | [place], [place] | | | [facility] | [address] | [address] | | | TESTS | | | [...]
--- OUTSIDE RECORDS SUMMARY | ~2019-05-10 | XMS | Encounter Summary ---
Demographics + + + | Address | [address] | | | [place] [address] | + + + | Home Phone [...] [place], [place] | | | | | [address] | | + + + + + [...] | | | | | | | [address] | | | | | | | [address] | | | | | | | [place], | | | | | | | [place] | | | | | | | [address] | | | | | | | Phone: | | | | | | | [phone] | | | | | | | Fax: | | | | | | | [phone] | +--------+--------+ + + + + Encounter Details +--------+---------+ + + + | Date | Type | Department | Care Team | Description | +--------+---------+ + + + | 04/14/ | Office | Digestive Health | Hernandez Brian, | Morbid obesity (HCC) | | 2013 | Visit | Center at [facility] [address] | [address] | (Primary Dx); Type | | | | [address] | [address] | 2 diabetes mellitus | | | | Mailcode: Center | [place], [place] | ([facility]); [facility] | | | | for Health and | [address] | (obstructive sleep | | | | [facility] 2 | [phone] | apnea); Edema | | | | [place], [place] | | | | | | [address] | | | | | | [phone] | | | +--------+---------+ + + + [...] this year, she was tr ansferred from [place] for surgical evaluation of possible incarcerated ventral [...] with close followup by her PCP in [place] in the interim. Dr. Guillory in [place] has been following her since January, with CT scan obtained at [facility] in [place] 02/09/2013 (images in [facility]), demonstrating "recurrent hypogastric [...] to follow up with her providers at [facility] to include a visi t to our [...] r weight loss efforts. She saw a fabric cutter today and Melida came in to discuss [...] and well perfused. 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 There is a well [...] [address] | | | | | | [place], [place] | | | | | | [address] | | | | | | [phone] | | | | | | | [...] | | | | | [place], [place] | | | | | | [address] | | | | | | [phone] | | | | | | | [...]
--- OUTSIDE RECORDS SUMMARY | ~2019-05-10 | XMS | Encounter Summary ---
Demographics + + + | Address | [address] | | | [place] [address] | + + + | Home Phone [...] [place], [place] | | | | | [address] | | + + + + + | Ellie Vang | ECON | Unknown | | + + + + + Care Team Providers + +------+ + | Care Hardboard Panel Printer Name | Role | Phone | [...] Lesly | | | | | Mailcode: [place] | [place], [place] | | | | | [facility] and | [address] | | | | | [facility] 2 | [phone] | | | | | [place], [place] | | | | | | [address] | | | | | | [phone] | | | +--------+ + + + [...] [address] | | | | | | [place], [place] | | | | | | [address] | | | | | | [phone] | | | | | | | [...] | | | | | [address] [place], [place] | | | | | | [address] | | | | | | [phone] | | | | | | | | +--------+ + + + + | 07/08/ | Procedure | Surgery | | | | 2018 | Pass | | | | +--------+ + + + + documented as of this encounter Visit Diagnoses Not on filedocumented in this encounter"
--- OUTSIDE RECORDS SUMMARY | ~2019-05-10 | XMS | Encounter Summary ---
Demographics + + + | Address | [address] | | | [place] [address] | + + + | Home Phone [...] + | Katalina Padilla | ECON | [address] | | | | | [place], [place] | | | | | [address] | | + + + + + | Ellie Vang | ECON | Unknown | | + + + + + Care Team Providers + +------+ + | Care Safety And Health Consultant Name | Role | Phone | [...] | | 2014 | | Preventive at [facility] | MD [address] | | | | | [address] | [address] [place], [place] | | | | | Mailcode: [address] | [address] | | | | | [facility] | [phone] | | | | | and [address], | | | | | | [address] | | | | | | [place], [place] | | | | | | [address] | | | | | | [phone] | | | +--------+--------+ + + + [...] | 2019 | Visit | | [address] | | | | | | [place], [place] | | | | | | [address] | | | | | | [phone] | | | | | | | [...] | | | | | [address] [address], [place] | | | | | | [address] | | | | | | [phone] | | | | | | | | +--------+ + + + + | 07/08/ | Procedure | Surgery | | | | 2018 | Pass | | | | +--------+ + + + + documented as of this encounter Visit Diagnoses Not on filedocumented in this encounter"
--- OUTSIDE RECORDS SUMMARY | ~2019-05-10 | XMS | Encounter Summary ---
Demographics + + + | Address | [address] | | | [place] [address] | + + + | Home Phone [...] [place], [place] | | | | | [address] | | + + + + + | Ellie Vang | ECON | Unknown | | + + + + + Care Team Providers + +------+ + | Care Refractory Tile Helper Name | Role | Phone | [...] | | 2019 | | Center at [facility] [address] | | Review | | | | [address] | | | | | | Mailcode: [place] | | | | | | [facility] and | | | | | | [facility] | | | | | | [place], [place] | | | | | | [address] | | | | | | [phone] | | | +--------+ + + + [...] | | | | | | [facility] [place] | | | | | | [address] | | | | | | [phone] | | | | | | | [...] | | | | | [place], [place] | | | | | | [address] | | | | | | [phone] | | | | | | | | +--------+ + + + + | 07/08/ | Procedure | Surgery | | | | 2019 | Pass | | | | +--------+ + + + + documented as of this encounter Visit Diagnoses Not on filedocumented in this encounter"
--- OUTSIDE RECORDS SUMMARY | ~2019-05-10 | XMS | Encounter Summary ---
Demographics + + + | Address | [address] | | | [place] [address] | + + + | Home Phone [...] [place], [place] | | | | | [address] | | + + + + + | Elile Vang | ECON | Unknown | | + + + + + Care Team Providers + +------+ + | Care Truck Driver Flatbed Name | Role | Phone | + [...] Mailcode:OP14B | | | | | | [facility] | | | | | | [place], [place] | | | | | | [address] | | | | | | [phone] | | | +--------+ + + + [...] [address] | | | | | | [place], [place] | | | | | | [address] | | | | | | [phone] | | | | | | | [...] | | | | Alma Delia [facility] [place] | | | | | | [address] | | | | | | [phone] | | | | | | | [...] [address] | | | | | | [address] | | | | | | | | | | | | [place] | | | | | | [address] | | | | | | | [...] | | | | artery. A 5.5 Slovak | | | | | | Ozzy [...]
--- OUTSIDE RECORDS SUMMARY | ~2019-05-10 | XMS | Encounter Summary ---
Demographics + + + | Address | [address] | | | [place] [address] | + + + | Home Phone [...] + | Katalina Padilla | ECON | [address] | | | | | [place], [place] | | | | | [address] | | + + + + + | Ellie Vang | ECON | Unknown | | + + + + + Care Team Providers + +------+ + | Care Flooring Salesperson Name | Role | Phone | + +------+ + | Fadi Goodrich DO | PCP | | + +------+ + Encounter Details +--------+ + + + + | Date | Type | Department | Care Team | Description | +--------+ + + + + | 02/13/ | Abstract | Cardiology | Randell Franks, | | | 2015 | | Preventive at [facility] | MD [address] | | | | | [address] | Ave [place], [place] | | | | | Mailcode: CH9A | [address] | | | | | [facility] | [phone] | | | | | and Healing, | | | | | | [address] | | | | | | [place], [place] | | | | | | [address] | | | | | | [phone] | | | +--------+ + + + [...] Flannery | | | | | | [place], [place] | | | | | | [address] | | | | | | [phone] | | | | | | | [...] | | | | | [place], [place] | | | | | | [address] | | | | | | [phone] | | | | | | | | +--------+ + + + + | 07/08/ | Procedure | Surgery | | | | 2019 | Pass | | | | +--------+ + + + + documented as of this encounter Visit Diagnoses Not on filedocumented in this encounter"
--- OUTSIDE RECORDS SUMMARY | ~2019-05-10 | XMS | Encounter Summary ---
Demographics + + + | Address | [address] | | | [place] [address] | + + + | Home Phone [...] [place], [place] | | | | | [address] | | + + + + + | Ellie Vang | ECON | Unknown | | + + + + + Care Team Providers + +------+ + | Care Financial Underwriter Name | Role | Phone | [...] + + | 06/23/ | Hospital | [facility] [address] | Kaleb Wilcox MD | | | 2017 | Encounter | [address] | [address] | | | | | [address]/[address] | [place], [place] | | | | | [place], | [address] | | | | | [place] [address] | [phone] | | | | | [phone] | | | +--------+ + + + [...] hours or on weekends and holiday Hospital Animation Director toll free [phone]. [phone] and have the GI doctor controlled atmospheric furnace brazer paged. The provider who performed your procedure is: Dr. Wilcox Results of your EGD: Dilation performed. You may resume your regular diet. Follow up Appointments with: Follow up with Dr. Pandey in bariatric surgery, thank you for choosing [facility]! Your primary care provider or referring [...] | | 0 | | | | CRB&WIW-C5-HQT64-GEN | mouth two times | | | [...] 2:35 PM PST PRE PROCEDURE NOTE: MR# [id number] Subjective: Elzbieta Cristina is a 43 y.o. [...] Flannery | | | | | | [place] | | | | | | [address] | | | | | | [phone] | | | | | | | [...] [place] | | | | | | [address] | | | | | | [phone] | | | | | | | [...] -----+ | MRN: | [facility] | | [id number] Date: 06/23/2018Patient Name: Elzbieta Curtis #: | ENDOSCOP Y | | [id number] of : 1975CSN: [id number] Type: | | | AmbulatoryRoom: SORProcedure: Upper GI | | | endoscopyIndications: Nausea with vomiting, Status post | | | Vzcv-ar-KGjhlwvnwk: KALEB WILCOX MD (Doctor), JOSE | | | NASIMA, Sewing Machine Operator Plastic Zipper | | | (Sewing Machine Operator Plastic Zipper)Referring MD: DANIELLE GARCÍAPRemateusz | | | Provider: [...] | | | The Olympus [id number]-[id number] Gastroscope #[id number] was | | | introduced through the [...] endoscope without resistance. The | | | ncegb-lq-bbwvjkw limb was characterized by healthy appearing | [...] [facility] Letter to: FADI GOODRICH DO | | [...] AMES | [address] | [place], [place] | | | [facility] | [address] | [address] | | | TESTS | | | [...] | | | | | | Until [facility] 06/24/18 at 0027, | | | | [...] 06/23/18 at 1532, | | | Until [facility] 06/24/18 at 0027, | | | nausea/vomiting [...] | | 06/23/18 at 1532, Until [facility] | | | | | | [...]
--- OUTSIDE RECORDS SUMMARY | ~2019-05-10 | XMS | Encounter Summary ---
Demographics + + + | Address | [address] | | | [place] [address] | + + + | Home Phone [...] [place], [place] | | | | | [address] | | + + + + + | Ellie Vang | ECON | Unknown | | + + + + + Care Team Providers + +------+ + | Care Brass Pourer Name | Role | Phone | [...] Medical Records | | 2013 | | [facility] [address] | [address] | Review ([facility] | | | | [address] | [address] | OUTSIDE RECORDS) | | | | Mailcode: [facility] | [place], [place] | | | | | [facility] and | [address] | | | | | [place] [address] | [phone] | | | | | [place], [place] | | | | | | [address] | | | | | | [phone] | | | +--------+ + + + [...] Flannery | | | | | | [place], [place] | | | | | | [address] | | | | | | [phone] | | | | | | | [...] | | | | | [place], [place] | | | | | | [address] | | | | | | [phone] | | | | | | | | +--------+ + + + + | 07/08/ | Procedure | Surgery | | | | 2019 | Pass | | | | +--------+ + + + + documented as of this encounter Visit Diagnoses Not on filedocumented in this encounter"
--- OUTSIDE RECORDS SUMMARY | ~2019-05-10 | XMS | Encounter Summary ---
Demographics + + + | Address | [address] | | | [place] [address] | + + + | Home Phone [...] + | Katalina Padilla | ECON | [address] | | | | | [place], [place] | | | | | [address] | | + + + + + | Ellie Vang | ECON | Unknown | | + + + + + Care Team Providers + +------+ + | Care Process Control Board Operator Name | Role | Phone | + +------+ + | Fadi Goodrich DO | PCP | | + +------+ + Encounter Details +--------+------+ + + + | Date | Type | Department | Care Team | Description | +--------+------+ + + + | 11/20/ | Lab | Laboratory at [facility] | | 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 | | [address] | | BMI of 70 and over, | | | | [place], [place] | | adult ([facility]); | | | | [address] | | 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 ([facility]); | | | | | | Type 2 diabetes | | | | | | mellitus without | | | | | | complication, with | | | | | | long-term current | | | | | | use of insulin ([facility]) | +--------+------+ + + + [...] Flannery | | | | | | [place], [place] | | | | | | [address] | | | | | | [phone] | | | | | | | | +--------+ + + + + | 06/27/ | Telephone-S | Pre-operative | | | | 2019 | cheduled | Medicine | | | +--------+ + + + + | 06/30/ | Office | Cardiology | TinyRandell, | | | 2018 | Visit | | [address] | | | | | | [place], [place] | | | | | | [address] | | | | | | [phone] | | | | | | | [...] | | | | | over, adult ([facility]) | | + +--------+ + + + | CBC (HEMOGRAM) ONLY | Routin | 11/20/2017 | Morbid obesity | Results for this | | | e | 10:01 AM | with BMI of 70 and | procedure are in the | | | | PDT | over, adult ([facility]) | results section. | | [...] | PDT | over, adult ([facility]) | results section. | | | | | 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| | 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 ([facility]) | | + +--------+ + + + | VITAMIN D, | Routin | 11/20/2017 | Morbid obesity | Results for this | | 25-HYDROXY, SERUM | e | 10:01 AM | with BMI of 70 and | procedure are in the | | | | PDT | over, adult ([facility]) | results section. | | | | | 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| | 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 ([facility]) | | + +--------+ + + + | COMPLETE METABOLIC | Routin | 11/20/2017 | Morbid obesity | Results for this | | SET | e | 10:01 AM | with BMI of 70 and | procedure are in the | | (NA,K,CL,CO2,BUN,CRE | | PDT | over, adult ([facility]) | results section. | | AT,GLUC,CA,AST,ALT,B | | | Diabetes mellitus | | | MARGIE TOTAL,ALK | | | type 2 without | | | PHOS,ALB,PROT TOTAL) |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 ([facility]) | | + +--------+ + + + | CBC ONLY | Routin | 11/20/2017 | Morbid obesity | Results for this | | | e | 10:01 AM | with BMI of 70 and | procedure are in the | | | | PDT | over, adult ([facility]) | results section. | | | | | 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| | 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 ([facility]) | | + +--------+ + + + | FERRITIN | Routin | 11/20/2017 | Morbid obesity | Results for this | | | e | 10:01 AM | with BMI of 70 and | procedure are in the | | | | PDT | over, adult ([facility]) | results section. | | | | | 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| | 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 ([facility]) | | + +--------+ + + + | PTH, SERUM | Routin | 11/20/2017 | Morbid obesity | Results for this | | | e | 10:01 AM | with BMI of 70 and | procedure are in the | | | | PDT | over, adult ([facility]) | results section. | | | | | 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| | 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 ([facility]) | | + +--------+ + + + | VITAMIN B-12 | Routin | 11/20/2017 | Morbid obesity | Results for this | | | e | 10:01 AM | with BMI of 70 and | procedure are in the | | | | PDT | over, adult ([facility]) | results section. | | | | | 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| | 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 ([facility]) | | + +--------+ + [...] | | use of insulin ([facility]) | | | | | | Morbid obesity | | | | | | with BMI of 70 and | | | | | | over, adult ([facility]) | | + +--------+ + + + | IRON AND TIBC, SERUM | Routin | 11/20/2017 | Morbid obesity | Results for this | | | e | 10:01 AM | with BMI of 70 and | procedure are in the | | | | PDT | over, adult ([facility]) | results section. | | | | | 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| | 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 ([facility]) | | + +--------+ + [...] | + + + + + | [employer] [facility] | [address] | [place] [address] | | | SERVICES, [facility] FOR | | | | | HEALTH [...] [facility] | [address] | [place], [place] | | | SERVICES, LIPID | [address] | [address] | | + + + + + [...] | [facility] | | considered for monitoring continuous churn buttermaker glycemic control in patients with: | LABORATORY [...] | + + + + + | [facility] | [address] | [place] [address] | | | SERVICES, SPECIAL | PARK [...] | | | | | determined by [employer] | | | | | | Laboratories. See | | | | | | Compliance Statement B: | | | | | | [employer]/CSPerformed | | | | | | by [employer],[address] | | | | | | Liliana Martinez, [facility],[place] | | | | | | [address] | | | | | | [phone].[employer]. | | | | | | [facility] Ismael Willis MD, | | | | | | Lab. Director | | | | + + + + + + + + | Specimen | + + | Blood - Blood | | (substance) | + + + + + + + | Performing | Address | [facility] | Phone Number | | Organization | | | | + + + + + | [facility] | [address] | [place], [place] | | | [facility] | | [address] | | + + + + + [...] | | | LABORATORY | | | [place] | | | SERVICES, | | | [...] [facility] | [address] | [place] [address] | | | SERVICES, CORE | PARK [...] [facility] | [address] | [place] [address] | | | SERVICES, CORE | PARK [...] | + + + + + | [facility] | [address] | [place] [address] | | | SERVICES, CORE | PARK [...] and | 50 - 200 ng/mL | [facility] | | | | Female >18 [...] | + + + + + | [facility] | [address] | [place] [address] | | | LYDIA RANGEL | CLARENCE [...] | + + + + + | [facility] | [address] [facility] | [place] [address] | | | SERVICES, CORE | CLARENCE [...] [facility] | [address] | [place] [address] | | | SERVICES, CORE | CLARENCE [...]
--- OUTSIDE RECORDS SUMMARY | ~2019-05-10 | XMS | Encounter Summary ---
Demographics + + + | Address | [address] | | | [place] [address] | + + + | Home Phone [...] [place], [place] | | | | | [address] | | + + + + + | Ellie Vang | ECON | Unknown | | + + + + + Care Team Providers + +------+ + | Care Curb Setter Name | Role | Phone | [...] Lesly | | | | | Mailcode: [place] | [place], [place] | | | | | [facility] and | [address] | | | | | [facility] 2 | [phone] | | | | | [place], [place] | | | | | | [address] | | | | | | [phone] | | | +--------+ + + + [...] [address] | | | | | | [place], [place] | | | | | | [address] | | | | | | [phone] | | | | | | | [...] | | | | | [place], [place] | | | | | | [address] | | | | | | [phone] | | | | | | | | +--------+ + + + + | 07/08/ | Procedure | Surgery | | | | 2018 | Pass | | | | +--------+ + + + + documented as of this encounter Visit Diagnoses Not on filedocumented in this encounter"
--- OUTSIDE RECORDS SUMMARY | ~2019-05-10 | XMS | Encounter Summary ---
Demographics + + + | Address | [address] | | | [place] [address] | + + + | Home Phone [...] + | Katalina Padilla | ECON | [address] | | | | | [place], [place] | | | | | [address] | | + + + + + | Ellie Vang | ECON | Unknown | | + + + + + Care Team Providers + +------+ + | Care Mill Beam Fitter Name | Role | Phone | + +------+ + | Fadi Goodrich DO | PCP | | + +------+ + Encounter Details +--------+ + + + + | Date | Type | Department | Care Team | Description | +--------+ + + + + | 02/10/ | Abstract | Digestive Health | Hernandez Brian, | | | 2012 | | Center at [facility] [address] | MD [address] | | | | | [address] | [facility] | | | | | Mailcode: Center | [place], [place] | | | | | [facility] and | [address] | | | | | [facility], [facility] 2 | [phone] | | | | | [place], [place] | | | | | | [address] | | | | | | [phone] | | | +--------+ + + + [...] [address] | | | | | | [place], [place] | | | | | | [address] | | | | | | [phone] | | | | | | | | +--------+ + + + + | 06/27/ | Telephone-S | Pre-operative | | | | 2019 | cheduled | Medicine | | | +--------+ + + + + | 06/30/ | Office | Cardiology | Randell Franks, | | | 2019 | Visit | | [address] | | | | | | [place], [place] | | | | | | [address] | | | | | | [phone] | | | | | | | | +--------+ + + + + | 07/08/ | Procedure | Surgery | | | | 2018 | Pass | | | | +--------+ + + + + documented as of this encounter Visit Diagnoses Not on filedocumented in this encounter"
--- OUTSIDE RECORDS SUMMARY | ~2019-05-10 | XMS | Encounter Summary ---
Demographics + + + | Address | [address] | | | [place] [address] | + + + | Home Phone [...] + | Katalina Padilla | ECON | [address] | | | | | [place], [place] | | | | | [address] | | + + + + + | Ellie Vang | ECON | Unknown | | + + + + + Care Team Providers + +------+ + | Care Slunk Skinner Name | Role | Phone | + [...] | | Alma Delia Mailcode: CH4S | [facility] | | | | | [facility] | [place], [place] | | | | | and Healing, | [address] | | | | | [place] [address] [facility] | [phone] | | | | | Floor [place], [place] | | | | | | [address] | | | | | | [phone] | | | +--------+ + + + [...] | | | | | | [place], [place] | | | | | | [address] | | | | | | [phone] | | | | | | | [...] | | | | | [place], [place] | | | | | | [address] | | | | | | [phone] | | | | | | | | +--------+ + + + + | 07/08/ | Procedure | Surgery | | | | 2019 | Pass | | | | +--------+ + + + + documented as of this encounter Visit Diagnoses Not on filedocumented in this encounter"
--- OUTSIDE RECORDS SUMMARY | ~2019-05-10 | XMS | Encounter Summary ---
Demographics + + + | Address | [address] | | | [place] [address] | + + + | Home Phone [...] [place], [place] | | | | | [address] | | + + + + + | Ellie Vang | ECON | Unknown | | + + + + + Care Team Providers + +------+ + | Care Athlete Manager Name | Role | Phone | [...] | | | | | | | [place] for | | | | | | | Health and | | | | | | | Healing, | | | | | | | Building [address] | | | | | | | [place], [place] | | | | | | | [address] | | | | | | | Phone: | | | | | | | [phone] | | | | | | | Fax: | | | | | | | [phone] | +--------+--------+ + + + + Encounter [...] | | | | Mailcode: Center | [place], [place] | ([facility]) | | | | for Health and | [address] | | | | | [facility], [facility] 2 | | | | | | [place], [place] | | | | | | [address] | | | | | | [phone] | | | +--------+---------+ + + + [...] of Visit: 10:06 to 10:32 (26 minutes oxxk-xy-eyzy with patient & friend) SUBJECTIVE: Is surprised she has gained weight; is disappointed. Still following her usual meal plan. H as d/c'd diet soda. Still struggling w/ eating out of boredom - choosing 100 kcal snacks but having ~3 of them at a time. Not as much emotional eating lately. Has been keeping food log s (on paper) - avg 0942-6475 kcal/d. Trying to increase activity. B: Atkins [...] instructional handout (bariatric surgery notebook) with the [facility] on post-surgery diet progression, sample menus, [...] provided. Olga Lidia [address] RD, [place] Pager [phone] documented in this en counter Plan of Treatment +--------+ + + + + | Date | Type | Specialty | Care Team | Description | +--------+ + + + + | 05/13/ | Office | Plastic Surgery | Archie Ybarra MD | | | 2019 | Visit | | [address] | | | | | | [place], [place] | | | | | | [address] | | | | | | [phone] | | | | | | | [...] | | | | | [place], [place] | | | | | | [address] | | | | | | [phone] | | | | | | | [...] | + +--------+ + + + | [place] MNT RE-ASSESSMNT | Routin | 06/16/2013 | [...]
--- OUTSIDE RECORDS SUMMARY | ~2019-05-10 | XMS | Encounter Summary ---
Demographics + + + | Address | [address] | | | [place] [address] | + + + | Home Phone [...] [place], [place] | | | | | [address] | | + + + + + [...] | 2016 | on | Center at [place] [address] | | | | | [address] | | | | | | Mailcode: [place] | | | | | | for Health and | | | | | | [facility], [facility] 2 | | | | | | [place], [place] | | | | | | [address] | | | | | | [phone] | | | +--------+ + + + [...] [address]ann[address] | | | | | | [place], [place] | | | | | | [address] | | | | | | [phone] | | | | | | | [...] | | | | | [place], [place] | | | | | | [address] | | | | | | [phone] | | | | | | | | +--------+ + + + + | 07/08/ | Procedure | Surgery | | | | 2018 | Pass | | | | +--------+ + + + + documented as of this encounter Visit Diagnoses Not on filedocumented in this encounter"
--- OUTSIDE RECORDS SUMMARY | ~2019-05-10 | XMS | Encounter Summary ---
Demographics + + + | Address | [address] | | | [place] [address] | + + + | Home Phone [...] [place], [place] | | | | | [address] | | + + + + + | Ellie Vang | ECON | Unknown | | + + + + + Care Team Providers + +------+ + | Care Safety Clothing And Equipment Developer Name | Role | Phone | [...] 2015 | | Preventive at [facility] | MD [address] | | | | | [address] | Ave [place], [place] | | | | | Mailcode: CH9A | [address] | | | | | [facility] | [phone] | | | | | and Healing, | | | | | | [address] | | | | | | [place], [place] | | | | | | [address] | | | | | | [phone] | | | +--------+ + + + [...] [address]ann[address] | | | | | | [place], [place] | | | | | | [address] | | | | | | [phone] | | | | | | | [...] | | | | | [place], [place] | | | | | | [address] | | | | | | [phone] | | | | | | | | +--------+ + + + + | 07/08/ | Procedure | Surgery | | | | 2019 | Pass | | | | +--------+ + + + + documented as of this encounter Visit Diagnoses Not on filedocumented in this encounter"
--- OUTSIDE RECORDS SUMMARY | ~2019-05-10 | XMS | Encounter Summary ---
Demographics + + + | Address | [address] | | | [place] [address] | + + + | Home Phone [...] [place], [place] | | | | | [address] | | + + + + + | Ellie Vang | ECON | Unknown | | + + + + + Care Team Providers + +------+ + | Care Harvesting Supervisor Name | Role | Phone | [...] | | | | | | | [place], [place] | | | | | | | [address] | | | | | | | Phone: | | | | | | | [phone] | | | | | | | Fax: | | | | | | | [phone] | +--------+--------+ + + + + Encounter [...] | | | [address] | [facility] [place] | Dx) | | | | Mailcode: L223A | [address] | | | | | [facility] | [phone] | | | | | [address] [facility] [place] | | | | | | [address] | | | | | | [phone] | | | +--------+---------+ + + + [...] MD,MPH - 11/05/2015 2:09 PM PDT [facility] Department of Surgery EGS/TRAUMA Surgery Clinic Note [...] 500 mg by mouth once daily. CALCIUM CRB&ITV-S3-DZZ21-GENIS ORAL Take 1 tablet by mouth two [...] were answered. Christian Rocha MD MPH FACS [facility] equipment installation professional Trauma, Critical Care & Acute Care Surgery [facility] [place] [phone] documented in thi s encounter Plan of Treatment +--------+ + + + + | Date | Type | Specialty | Care Team | Description | +--------+ + + + + | 05/13/ | Office | Plastic Surgery | Archie Ybarra MD | | | 2018 | Visit | | [address] | | | | | | [place], [place] | | | | | | [address] | | | | | | [phone] | | | | | | | [...] | | | | | [place], [place] | | | | | | [address] | | | | | | [phone] | | | | | | | [...]
--- OUTSIDE RECORDS SUMMARY | ~2019-05-10 | XMS | Encounter Summary ---
Demographics + + + | Address | [address] | | | [place] [address] | + + + | Home Phone [...] + | Katalina Padilla | ECON | [address] | | | | | [place], [place] | | | | | [address] | | + + + + + | Ellie Vang | ECON | Unknown | | + + + + + Care Team Providers + +------+ + | Care Cab Supervisor Name | Role | Phone | [...] | HA Roldan | | | with FINANCIAL SERVICES REP | | hypertension | [address] | | | | | Right | [address] | [place] | | | | | heart | [place], [place] | [place], | | | | | failure | [address] | [place] | | | | | ([facility]) Type | Phone: | [phone] | | | | | 2 diabetes | [phone] | | | | | | mellitus | Fax: | | | | | | without | [phone] | | | | | | complication | | | | | | | , with | | | | | | | long-term | | | | | | | current use | | | | | | | of insulin | | | | | | | ([facility]) | | | +--------+ + + [...] | | | [address] | [facility] [address] | (Primary Dx); | | | | Mailcode: Center | [place], [place] | 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[facility] and | [address] | 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, 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) | | | | [place], [place] | | | | | | [address] | | | | | | [phone] | | | +--------+---------+ + + + [...] Follow-Up Patient referred by: Randell Franks MD [address] [place] [address] Documented time of visit: 2:36pm to 2:49 (13 minutes algn-yq-jxfq with patient) Surgery: Gastric Bypass Date of [...] Medications since surgery: oral - appt with knot borer on the 9th Testing blood glucose: 92 [...] beef, cream of wheat, cream of mushroom, surinamese yogurt Fluid choices: water Supplementation: Flinstones, iron, [...] multivitamin & mineral (with iron) supplement, 2/day -7886-7312 mg calcium citrate with vitamin D/day (take in divided doses, not within 2 hour s of multivitamin or iron supplement) -500 mcg/day sublingual B12 supplement (or monthly injections) Continued to reinforce importance of mindful eating. Continue to increase physical activity. Follow up in 3 months or earlier as needed. Tejas Cevallos RD, LD Pager # [phone] signed by Tejas Cevallos RD at 05/27/2018 [...] [address] | | | | | | [place], [place] | | | | | | [address] | | | | | | [phone] | | | | | | | [...] | | | | | [place], [place] | | | | | | [address] | | | | | | [phone] | | | | | | | [...] | MA MNT RE-ASSESSMNT | Routin | 05/27/2018 | [...]
--- OUTSIDE RECORDS SUMMARY | ~2019-05-10 | XMS | Encounter Summary ---
Demographics + + + | Address | [address] | | | [place] [address] | + + + | Home Phone [...] [place], [place] | | | | | [address] | | + + + + + | Ellie Vang | ECON | Unknown | | + + + + + Care Team Providers + +------+ + | Care Innovation Manager Name | Role | Phone | [...] [address] | | | | | | [facility] | [facility] | | | | | | [facility] | [address] Mailcode: | | | | | | [facility] | [address] | | | | | | [place], [place] | [facility] | | | | | | [address] | [address] | | | | | | Phone: | [place], [place] | | | | | | [phone] | [address] | | | | | | | Phone: | | | | | | | [phone] | | | | | | | Fax: | | | | | | | [phone] | +--------+--------+ + + + + Encounter [...] [facility] [address] | [address] [place], | | | | | [place] | [place] [address] | | | | | Mailcode: [address] | [phone] | | | | | [facility] | | | | | | [address] [place], [place] | | | | | | [address] | | | | | | [phone] | | | +--------+---------+ + + + [...] HOSPITAL GENERAL SURGERY CLINIC FOLLOW UP Attending: aTm Starr MD Author: Axel Gonzales MD Date: [...] a HIDA scan to be done in [place] to verify that she does not have [...] Surgery Resident Department of General Surgery Pager: [phone] I saw and evaluated the patient. I agree with the findings and the plan of care as dequan han in the resident s note. PRADIP STARR MD [facility] SURGERY AT [facility] [address] [facility] Mailcode: [address] [place] [address] documented in this encoun ter Plan of Treatment +--------+ + + + + | Date | Type | Specialty | Care Team | Description | +--------+ + + + + | 05/13/ | Office | Plastic Surgery | Archie Ybarra MD | | | 2018 | Visit | | [address] | | | | | | [place], [place] | | | | | | [address] | | | | | | [phone] | | | | | | | [...] | | | | | [place] [address], [place] | | | | | | [address] | | | | | | [phone] | | | | | | | [...] [facility] | [address] | [place] [address] | | | SERVICES, [place] | [address] | | | + + + + + documented in this encounter Visit Diagnoses + + | Diagnosis | + + | Cholecystitis - Primary Cholecystitis, unspecified | + + documented in this encounter
--- OUTSIDE RECORDS SUMMARY | ~2019-05-10 | XMS | Encounter Summary ---
Demographics + + + | Address | [address] | | | [place] [address] | + + + | Home Phone [...] [place], [place] | | | | | [address] | | + + + + + | Ellie Vang | ECON | Unknown | | + + + + + Care Team Providers + +------+ + | Care Office Machines Wirer Name | Role | Phone | + +------+ + | Fadi Goodrich DO | PCP | | + +------+ + Encounter Details +--------+ + + + + | Date | Type | Department | Care Team | Description | +--------+ + + + + | 02/10/ | Abstract | Digestive Health | Hernandez Brian, | | | 2012 | | Center at [facility] [address] | MD [address] | | | | | [address] | [facility] | | | | | Mailcode: Center | [place], [place] | | | | | [facility] and | [address] | | | | | [facility] [address] | [phone] | | | | | [place], [place] | | | | | | [address] | | | | | | [phone] | | | +--------+ + + + [...] [address] | | | | | | [place], [place] | | | | | | [address] | | | | | | [phone] | | | | | | | | +--------+ + + + + | 06/27/ | Telephone-S | Pre-operative | | | | 2019 | cheduled | Medicine | | | +--------+ + + + + | 06/30/ | Office | Cardiology | Randell Franks, | | | 2019 | Visit | | [address] | | | | | | [place], [place] | | | | | | [address] | | | | | | [phone] | | | | | | | | +--------+ + + + + | 07/08/ | Procedure | Surgery | | | | 2018 | Pass | | | | +--------+ + + + + documented as of this encounter Visit Diagnoses Not on filedocumented in this encounter"
--- OUTSIDE RECORDS SUMMARY | ~2019-05-10 | XMS | Encounter Summary ---
Demographics + + + | Address | [address] | | | [place] [address] | + + + | Home Phone [...] + | Katalina Padilla | ECON | [address] | | | | | [place], [place] | | | | | [address] | | + + + + + | Ellie Vang | ECON | Unknown | | + + + + + Care Team Providers + +------+ + | Care Vacuum Cleaner Operator Name | Role | Phone | [...] PRINCE Giles | | | | | [place], [place] | [address] | | | 11/12/ | | [address] | [place], [place] | | | 2012 | | [phone] | [address] | | | | | | [phone] | | | | | | | [...] yuriy tral hernia. She was transferred from [place] for surgical evaluation of possible incarcer ated [...] running suture. Panniculectomy was performed and a avnessa drain was left in place in the prefascial space. POD 1 had return of bowel function and was passing flatus. POD 2 the ruiz was removed. Advancement of her diet was slow and she was placed on clear liquids POD 3 an d was found to have a UTI and was placed on seven days of Cipro. POD 5 she was discharged ho ks, tolerating a diabetic diet. Having bowel function. [...] yuriy tral hernia. She was transferred from [place] for surgical evaluation of possible incarcer ated [...] Cipro. POD 5 she was discharged ho ks, tolerating a diabetic diet. Having bowel function. [...] keeping you from eating and drinking, Call [phone]. It is important to stay hydrated! If [...] taking narcotic that contain Tylenol (acetaminophen) Example: [place], Lortab, Vicodin, hydrocodone/APAP, Percocet, Tylenol #3 PAIN MEDICATIONS are ONLY REFILLED during CLINIC APPOINTMENTS. Please call [phone] to schedule an appointment. Your Follow-Up Plan Follow up with ROBIN MEJIA in 2 weeks. Contact information: [address] [address] Vitals on discharge: Ht 154.9 cm (5' [...] rom the original. [facility] DEPARTMENT OF SURGERY EMERGENCY GENERAL SURGERY Division [...] clinic [place]. [place] [phone] pager number [facility] [phone] [facility] [phone] Aminta Goodwin Md - 11/11/2012 7:40 AM PDT [facility] DEPARTMENT OF SURGERY EMERGENCY GENERAL SURGERY Division of Trauma and Critical Care Attending Physician: Andie Brian MD Progress Note Note Date: 11/11/2012 Admission Date: 11/06/2012 DYLAN ROMERO, [id number] Hospital Day #5 INTERVAL EVENTS none acute [...] mg, Rectal, DAILY PRN, Aminta Wilson MD kflcbyrwcb-dlwroryzbabar-asatbnej (aka FIORICET) 50-325-40 mg 1 Tab, 1 [...] 1 Cap, 1 Cap, Oral, DAILY, Aminta Wilsno MD, 1 Cap at 11/11/12 08 LORazepam [...] Jayne Ponce MD, 1 mg at 11/10/12801 jvupuajfrc-dalukistbrqti-yfdzmffk (aka FIORICET) 50-325-40 mg 1 Tab, 1 [...] in preservative free NaCl 0.9% 50 mL STRAIGHTEDGE WORKER infusion, , Intravenous, KIESHA NUGRANT, Aracely Mccartynato, [...] diet -add bowel regimen Acute pain -HM STRAIGHTEDGE WORKER, tylenol -convert to oral pain medication once [...] Fluids: LR 125ml/hr Feeding: NPO Analgesia: Dilaudid STRAIGHTEDGE WORKER Sedation: not indicated Thromboprophylaxis: enoxaparin Head of [...] Ponce MD, 1 mg at 11/09/12 0855 nvaktvvxtg-obnwbesxfxnho-etibzfle (aka FIORICET) 50-325-40 mg 1 Tab, 1 [...] in preservative free NaCl 0.9% 50 mL STRAIGHTEDGE WORKER infusion, , Intravenous, KIESHA NUOUS, Aracely Cruzo, [...] drainage <30ml for 24hrs Acute pain -HM STRAIGHTEDGE WORKER, tylenol Diabetes: -insulin gtt not started due [...] Fluids: LR 125ml/hr Feeding: NPO Analgesia: Dilaudid STRAIGHTEDGE WORKER Sedation: not indicated Thromboprophylaxis: enoxaparin Head of bed: > 30 Ulcer prophylaxis: pepcid Glycemic control: adequate Activity/PT/OT: Ongoing Yogurt: ABX on Probiotics:yes AMINTA WILSON MD General Surgery, R1 Kaleb Martin N P - 11/08/2012 8:49 AM PDT [facility] DEPARTMENT OF SURGERY EMERGENCY GENERAL SURGERY Division of Trauma and Critical Care Attending Physician: Andie Brian MD Progress Note Note Date: 11/08/2012 Admission Date: 11/06/2012 DYLAN ROMERO, [id number] Hospital Day #2 INTERVAL EVENTS NO SUBJECTIVE Pain well controlled; has headache attributed to dilaudid STRAIGHTEDGE WORKER Tylenol did not help. Flatus: YES Tolerating [...] trials today. -DC ruiz Acute pain -HM STRAIGHTEDGE WORKER, tylenol Diabetes: -insulin gtt not started due [...] Fluids: LR 125ml/hr Feeding: NPO Analgesia: Dilaudid STRAIGHTEDGE WORKER Sedation: not indicated Thromboprophylaxis: enoxaparin Head of bed: > 30 Ulcer prophylaxis: pepcid Glycemic control: adequate Activity/PT/OT: Ongoing Yogurt: ABX on Probiotics: No KALEB WALKER NP [facility] [address] [place] [address] elvin Stephens MD - 11/07/2012 9:51 PM [...] 7.33* PCO2 49* PO2 113* HCO3 25 HMBPX2TWE 26 X0EGRVFV 98.3* M7CWCANLL -- FIO2 60 ABGEXCESS -0.9 Assessment, Medical Decision Making and Plan 1. Incarcerated hernia, now s/p repair and panniculectomy -Binder, pain control, minimize nausea and coughing PRN. -NG clamping trials today. 2. Acute pain -HM STRAIGHTEDGE WORKER, tylenol 3. Diabetes: -insulin gtt 4. Morbid [...] Dione Grimes MD R-2, General Surgery Pager: [phone] [facility] [place] Department of Surgery Trauma ICU Team Pager (24hrs/day): [phone] I was present with the resident during the history and exam. I discussed the case with the resident and agree with the findings and plan as documented in the resident s note. KELVIN STEPHENS MD [facility] [address] [place] [address] [id number] uOnur patton MD - 11/07/2012 2:37 AM [...] mcg 25-100 mcg Intravenous Q1H PRN Danny Laogs MD 50 mcg at 11/06/122051 FLUoxetine (aka PROZAC) capsule 40 mg 40 mg Oral DAILY Onur Allen MD 40 mg at 11/06/12 0758 glucagon (aka GLUCAGEN) injection 1 mg 1 mg Intramuscular PRN Danny Lagos MD glucose chewable tablet 16 g 16 g Oral Q15MIN PRN Danny Lagos MD HYDROmorphone 25 mg in preservative free NaCl 0.9% 50 mL STRAIGHTEDGE WORKER infusion Intravenous CON TINUOUS Aracely Flores, DO [...] POD#1 s/p primary repair. 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, continue prozac and zyprexa [...] F: probable remain NPO today A: dilaudid railroad police officer, prn tylenol S: prn benzos as she is at home T: will start prophylactic lovenox today H: HOB >30 degrees U: pepcid G: insulin gtt ONUR ALLEN MD, PGY3 [facility] [address] [id number] [address] Onelia Shrestha MD - 11/06/2012 8:41 AM PDT [facility] DEPARTMENT OF SURGERY Division of Trauma and Critical Care Emergency General Surgery / Acute Care Surgery Attending Physician: Andie Brian MD Note Date: 11/06/2012 Admission Date: 11/06/2012 DYLAN ROMERO, [id number] Hospital Day #0 OVERNIGHT EVENTS: anxious SUBJECTIVE: [...] zenia LABS: reviewed and are available in [employer] (if new data) IMAGING: VASCULAR: IMPRESSION: Dylan [...] Flannery | | | | | | [place], [place] | | | | | | [address] | | | | | | [phone] | | | | | | | [...] | | | | Alma Delia [place], [place] | | | | | | [address] | | | | | | [phone] | | | | | | | [...] Mae | | | | | | [place] | | | | + + + + + + + + | Specimen | + + | | + + + +---------+ + + | Performing | Address | City/State/Zipcode | Phone Number | | Organization | | | | + +---------+ + + | [facility] DEPARTMENT OF | | | | [...] [place] | [address] | [place], [place] | | | [place], POINT OF CARE | [address] | [address] | | | TESTS | | | [...] [place] | [address] | [place], [place] | | | [facility] | [facility] | [address] | | | TESTS | | | [...] [facility] | [address] | [place] [address] | | | SERVICES, CORE | PARK [...] | | | LABORATORY | | | SLOVENIAN | | | SERVICES, | | | [...] | + + + + + | [facility] | [address] | [place] [address] | | | SERVICES, LYDIA | CLARENCE [...] | + + + + + | [facility] | [address] | [place] [address] | | | LYDIA RANGEL | CLARENCE [...] (H) | 60 - 99 mg/dL | [facility] - | | | GLUCOSE, | [...] [place] | [address] | [place], [place] | | | [place] POINT OF CARE | [address] | [address] | | | TESTS | | | [...] AMES | [address] | [place], [place] | | | [facility] OF [place] | [facility] | [address] | | | TESTS | | | [...] - [place] | [address] | [place], [place] | | | [facility] OF CARE | [facility] | [address] | | | TESTS | | | [...] (H) | 60 - 99 mg/dL | [facility] - | | | GLUCOSE, | [...] LANE[facility] | [address] | [place], [place] | | | [place]INT OF CARE | [address] | [address] | | | TESTS | | | [...] AMES | [address] | [place], [place] | | | [facility] [place] | [facility] | [address] | | | TESTS | | | [...] | + + + + + | [facility] | [address] | [place] [address] | | | LYDIA RANGEL | CLARENCE [...] | | | LABORATORY | | | SLOVENIAN | | | SERVICES, | | | [...] | + + + + + | [facility] | [address] | [place] [address] | | | SERVICES, CORE | PARK [...] | + + + + + | [facility] | [address] | [place] [address] | | | SERVICES, CORE | CLARENCE [...] MARQU[facility] | [address] | [place], [place] | | | JUST[facility] DAWN OF CARE | [address] | [address] | | | TESTS | | | [...] - [facility] | [address] | [place], [place] | | | [facility] OF CARE | [facility] | [address] | | | TESTS | | | [...] AMES | [address] | [place], [place] | | | [place] POINT OF CARE | [address] | [address] | | | TESTS | | | [...] KWAKU | [address] | [place], [place] | | | [facility] OF [place] | [address] | [address] | | | TESTS | | | [...] - [facility] | [address] | [place], [place] | | | [facility] | [facility] | [address] | | | TESTS | | | [...] [facility] | [address] | [place] [address] | | | SERVICES, CORE | PARK [...] | | | LABORATORY | | | SLOVENIAN | | | SERVICES, | | | [...] | + + + + + | [employer] [facility] | [address] | [place] [address] | | | SERVICES, CORE | PARK [...] [facility] | [address] | [place] [address] | | | SERVICES, CORE | PARK [...] - [place] | [address] | [place], [place] | | | [place] POINT OF CARE | [address] | [address] | | | TESTS | | | [...] AMES | [address] | [place], [place] | | | [place] POINT OF CARE | [address] | [address] | | | TESTS | | | [...] MAR[place] | [address] | [place], [place] | | | JUST[facility] DAWN OF CARE | [address] | [address] | | | TESTS | | | [...] | | | Final CULTURE | | [place] | | | | RESULT:>100,000 cfu/ml | [...] + | [facility] | [address] | [place] [address] | | | [place] | | | [...] [facility] | [address] | [place] [address] | | | SERVICES, CORE | PARK [...] | + + + + + | [facility] | [address] | [place] [address] | | | SERVICES, CORE | PARK [...] 90 | 60 - 99 mg/dL | [facility] - | | | GLUCOSE, | [...] AMES | [address] | [place], [place] | | | [facility] | [facility] | [address] | | | TESTS | | | [...] | | | LABORATORY | | | SLOVENIAN | | | SERVICES, | | | [...] [facility] | [address] | [place] [address] | | | SERVICES, CORE | PARK [...] | + + + + + | [facility] | [address] | [place] [address] | | | SERVICES, CORE | PARK [...] | + + + + + | [facility] | [address] | [place] [address] | | | SERVICES, CORE | CLARENCE [...] [facility] | [address] | [place], [place] | | | [facility] | [address] | [address] | | | TESTS | | | [...] [facility] | [address] | [place], [place] | | | [facility] | [facility] | [address] | | | TESTS | | | | + + + + + CAPILLARY BLOOD GLUCOSE (NO CHG), POC (11/08/2012 12:09 PM PDT) + +-------+ + + + | Component | Value | Ref Range | Performed | Pathologist | | | | | At | Signature | + +-------+ + + + | BLOOD | 97 | 60 - 99 mg/dL | [facility] - | | | GLUCOSE, | [...] + + | [facility] | [address] | [place], [place] | | | [facility] | [address] | [address] | | | TESTS | | | [...] | + + + + + | [facility] | [address] | [place] [address] | | | SERVICES, CORE | PARK [...] | + + + + + | [facility] | [address] | [place] [address] | | | SERVICES, LYDIA | CLARENCE [...] | | | LABORATORY | | | SLOVENIAN | | | SERVICES, | | | [...] the MDRD equation recommended by the | [facility] | | National Kidney Disease Education [...] | + + + + + | [facility] | [address] | [place] [address] | | | [facility] | [address] | | | + + + + + CAPILLARY BLOOD GLUCOSE (NO CHG), POC (11/08/2012 5:58 AM PDT) + +-------+ + + + | Component | Value | Ref Range | Performed | Pathologist | | | | | At | Signature | + +-------+ + + + | BLOOD | 92 | 60 - 99 mg/dL | [facility] - | | | GLUCOSE, | [...] [facility] | [address] | [place], [place] | | | [place] POINT OF CARE | [address] | [address] | | | TESTS | | | [...] [facility] | [address] | [place], [place] | | | [facility]WN OF [place] | [address] | [address] | | | TESTS | | | [...] [facility] | [address] | [place], [place] | | | [facility] [facility] | [facility] | [address] | | | TESTS | | | [...] | + + + + + | [facility] | [address] | [place] [address] | | | SERVICES, CORE | [address] | | | + + + + + MAGNESIUM, PLASMA (11/07/2012 12:30 AM PDT) + +---------+ + + + | Component | Value | Ref Range | Performed | Pathologist | | | | | At | Signature | + +---------+ + + + | MAGNESIUM,P | 1.7 (L) | 1.8 - 2.5 mg/dL | [facility] | | | LASMA | | [...] [facility] | [address] | [place] [address] | | | SERVICES, CORE | PARK [...] | | | LABORATORY | | | SLOVENIAN | | | SERVICES, | | | [...] | + + + + + | [facility] | [address] | [place] [address] | | | LYDIA RANGEL | [address] | | | + + + + + X-RAY PORTABLE CHEST 1 VIEW (11/06/2012 4:46 PM PDT) + + + + + + | Component | Value | Ref Range | Performed | Pathologist | | | | | At | Signature | + + + + + + | X-RAY | STUDY: NC CHEST 1 VIEW | | | | | PORTABLE | 11/06/12 16:46:00 | | | | | CHEST 1 | INDICATION: Right upper | | | | | VIEW | lobe opacity. | | | | | | COMPARISON: Earlier same | | | | | | day a STUDY: NC CHEST 1 | | | | | [...] + + + | X-RAY | STUDY: NC CHEST 1 VIEW | | | | [...] [facility] | [address] | [place] [address] | | | SERVICES, CORE | PARK [...] | | | LABORATORY | | | SLOVENIAN | | | SERVICES, | | | [...] | + + + + + | [facility] | [address] | [place] [address] | | | SERVICES, CORE | CLARENCE [...] [facility] | [address] | [place] [address] | | | SERVICES, CORE | PARK [...] [facility] | [address] | [place], [place] | | | [facility] OF J[facility] | [facility] | [address] | | | TESTS | | | [...] [facility] | [address] | [place], [place] | | | JUSTINE DAWN OF CARE | [facility] | [address] | | | TESTS | | | [...] [facility] | [address] | [place] | | | [facility] OF J[place] | [facility] | [address] | | | TESTS | | | [...] AMES | [address] | [place], [place] | | | [place] POINT OF CARE | [address] | [address] | | | TESTS | | | [...] [facility] | [address] | [place], [place] | | | [place] POINT OF CARE | [address] | [address] | | | TESTS | | | [...] [facility] | [address] | [place], [place] | | | [facility]WN OF CARE | [address] | [address] | | | TESTS | | | [...] AMES | [address] | [place], [place] | | | [facility]WN OF [place] | [address] | [address] | | | TESTS | | | [...] [facility] | [address] | [place], [place] | | | [place] POINT OF CARE | [address] | [address] | | | TESTS | | | [...] [facility] | [address] | [place] | | | JUSTINE DAWN OF CARE | [address] | [address] | | | TESTS | | | [...] AMES | [address] | [place], [place] | | | [place] POINT OF JAKY | [facility] | [address] | | | TESTS | | | [...] [facility] | [address] | [place], [place] | | | [place] POINT OF CARE | [facility] | [address] | | | TESTS | | | [...] | + + + + + | [facility] | [address] | [place] [address] | | | SERVICES, | [address] [...] [facility] | [address] | [place], [place] | | | JUSTINE DAWN OF CARE | [address] | [address] | | | TESTS | | | [...] [facility] | [address] | [place] [address] | | | SERVICES, | [address] [...] | + + + + + | [facility] | [address] | [place] [address] | | | SERVICES, | [address] [...] [facility] | [address] | [place] [address] | | | SERVICES, CORE | PARK [...] | + + + + + | [facility] | [address] | [place] [address] | | | SERVICES, CORE | PARK [...] | + + + + + | [facility] | [address] | [place] [address] | | | SERVICES, CORE | PARK [...] | + + + + + | [facility] | [address] | [place] [address] | | | SERVICES, CORE | PARK [...] | | | LABORATORY | | | SLOVENIAN | | | SERVICES, | | | [...] | + + + + + | [facility] | [address] | [place] [address] | | | SERVICES, CORE | CLARENCE [...] view image for the detailed interpretation from [employer] results. | CARDIOLOGY | + + + + + + + + | Performing | Address | City/State/Zipcode | Phone Number | | Organization | | | | + + + + + | [facility] | [address] | [place], [place] | | | CARDIOLOGY | [address] | [address] | | + + + + + [...] | + + + + + | [facility] | [address] | [place] [address] | | | SERVICES, CORE | CLARENCE [...] | + + + + + | [facility] | [address] | [place] [address] | | | SERVICES, CORE | PARK [...] | 1 tablet | | | | fpsrektcpn-crshawwghbfch-hfqghgrj | | 13 8:02 | | | [...] 13 7:36 | | | | | STRAIGHTEDGE WORKER infusion intravenous, | | PM PDT | [...] PDT | | | | | Until [facility] 11/11/12 at 0702 | | | | [...] | | | | last modification) on [facility] 11/11/12 | | | | | | [...]
--- OUTSIDE RECORDS SUMMARY | ~2019-05-10 | XMS | Encounter Summary ---
Demographics + + + | Address | [address] | | | [place] [address] | + + + | Home Phone [...] + | Katalina Padilla | ECON | [address] | | | | | [place], [place] | | | | | [address] | | + + + + + | Ellie Vang | ECON | Unknown | | + + + + + Care Team Providers + +------+ + | Care Hat Blocking Operator Name | Role | Phone | [...] mellitus (HCC); | | | | at [facility] 3rd Floor | | Cholecystitis | | | | [address] | | | | | | [place], | | | | | | [place] [address] | | | | | | [phone] | | | +--------+------+ + + + [...] Flannery | | | | | | [place], [place] | | | | | | [address] | | | | | | [phone] | | | | | | | [...] | | | | | Alma Delia [place], [place] | | | | | | [address] | | | | | | [phone] | | | | | | | [...] [facility] | [address] | [place] [address] | | | SERVICES, CORE | PARK [...] + +---------+ + + + | JOSEPHI D CMNT | No Hemo | | [...] | + + + + + | [facility] | [address] | [place] [address] | | | SERVICES, CORE | CLARENCE [...] | + + + + + | [facility] | [address] | [place] [address] | | | SERVICES, SPECIAL | PARK [...]
--- OUTSIDE RECORDS SUMMARY | ~2019-05-10 | XMS | Encounter Summary ---
Demographics + + + | Address | [address] | | | [place] [address] | + + + | Home Phone [...] + | Katalina Padilla | ECON | [address] | | | | | [place], [place] | | | | | [address] | | + + + + + | Ellie Vang | ECON | Unknown | | + + + + + Care Team Providers + +------+ + | Care Soft Metals Engraver Hand Name | Role | Phone | [...] | | | 2013 | Event | [facility] | [address] | | | | | Admitting Desk | [facility] | | | | | [facility] on the | [place] [address] | | | | | floor [address] | [phone] | | | | | [address] | | | | | | [place], [place] | | | | | | [address] | | | +--------+ + + + [...] 05/13/ | Office | Plastic Surgery | Archei Ybarra MD | | | 2019 | Visit | | [address] | | | | | | [place], [place] | | | | | | [address] | | | | | | [phone] | | | | | | | [...] | | | | | Alma Del[place], [place] | | | | | | [address] | | | | | | [phone] | | | | | | | [...]
--- OUTSIDE RECORDS SUMMARY | ~2019-05-10 | XMS | Encounter Summary ---
Demographics + + + | Address | [address] | | | [place] [address] | + + + | Home Phone [...] [place], [place] | | | | | [address] | | + + + + + | Ellie Vang | ECON | Unknown | | + + + + + Care Team Providers + +------+ + | Care Cuff Turner Machine Operator Name | Role | Phone [...] | 2012 | | Center at [facility] [address] | ACNP [address] | | | | | [address] | Ave [place], [place] | | | | | Mailcode: [place] | [address] | | | | | for Health and | | | | | | [facility] | | | | | | [facility] [place] | | | | | | [address] | | | | | | | [...] Flannery | | | | | | [place], [place] | | | | | | [address] | | | | | | [phone] | | | | | | | [...] [place] | | | | | | [address] | | | | | | [phone] | | | | | | | | +--------+ + + + + | 07/08/ | Procedure | Surgery | | | | 2019 | Pass | | | | +--------+ + + + + documented as of this encounter Visit Diagnoses Not on filedocumented in this encounter"
--- OUTSIDE RECORDS SUMMARY | ~2019-05-10 | XMS | Encounter Summary ---
Demographics + + + | Address | [address] | | | [place] [address] | + + + | Home Phone [...] [place], [place] | | | | | [address] | | + + + + + | Ellie Vang | ECON | Unknown | | + + + + + Care Team Providers + +------+ + | Care Admeasurer Name | Role | Phone | + [...] Flannery | | | | | | [facility] [place] | | | | | | [address] | | | | | | [phone] | | | | | | | [...] | | | | | [place], [place] | | | | | | [address] | | | | | | [phone] | | | | | | | | +--------+ + + + + | 07/08/ | Procedure | Surgery | | | | 2019 | Pass | | | | +--------+ + + + + documented as of this encounter Visit Diagnoses Not on filedocumented in this encounter"
--- OUTSIDE RECORDS SUMMARY | ~2019-05-10 | XMS | Encounter Summary ---
Demographics + + + | Address | [address] | | | [place] [address] | + + + | Home Phone [...] + | Katalina Padilla | ECON | [address] | | | | | [place], [place] | | | | | [address] | | + + + + + | Ellie Vang | ECON | Unknown | | + + + + + Care Team Providers + +------+ + | Care Book Illustrator Name | Role | Phone | + [...] Diabetes & | Morbid | Kathy M, ELECTRIC LOCOMOTIVE CRANE OPERATOR | [address] | | | | Metabolism | obesity | [address] | | | | | ([facility]) | [address], | [address] | | | | | Procedures | [address] | Physician's | | | | | CONSULT TO | [place], [place] | Pavilion | | | | | ENDO | [address] | Physician's | | | | | [address] | Phone: | Pavilion | | | | | | [phone] | [place], [place] | | | | | | Fax: | [address] | | | | | | [phone] | Phone: | | | | | | | [phone] | | | | | | | Fax: | | | | | | | [phone] | +--------+--------+ + + + + Encounter [...] | | [facility] at [facility] | [place], [place] | (Primary Dx); Morbid | | | | [address] | [address] | obesity (HCC) | | | | [address] | [phone] | | | | | Physician's | | | | | | Pavilion | | | | | | Physician's Pavilion | | | | | | [place], [place] | | | | | | [address] | | | | | | [phone] | | | +--------+---------+ + + + [...] | | | | | | [place], [place] | | | | | | [address] | | | | | | [phone] | | | | | | | [...] | | | | | [place], [place] | | | | | | [address] | | | | | | [phone] | | | | | | | [...]
--- OUTSIDE RECORDS SUMMARY | ~2019-05-10 | XMS | Encounter Summary ---
Demographics + + + | Address | [address] | | | [place] [address] | + + + | Home Phone [...] [place], [place] | | | | | [address] | | + + + + + | Ellie Vang | ECON | Unknown | | + + + + + Care Team Providers + +------+ + | Care Plant Inspector Name | Role | Phone | [...] | | | without | [place] | [address] | | | | | mention of | | Phone: | | | | | obstruction | | [phone] | | | | | or gangrene | | Fax: | | | | | | | [phone] | +--------+--------+ + + + + Encounter [...] | [address] | [address] | Hernia | | | | [address] | [place], [place] | | | | | Mailcode: L223A | [address] | | | | | [facility] | [phone] | | | | | [address] [place], [place] | | | | | | [address] | | | | | | [phone] | | | +--------+---------+ + + + [...] are still in, And wound is healed. [place] removed. Drainage is serous, very slight sanguinous. No eviden ce of deep subcutaneous infection. Abdominal wall currently intact. Drain site OK. Assessment/Plan: Satisfactory course following primary repair of incarcerated umbilical he rnia. Pt. Wants to obtain care, including drain removal and diabetic care in [place], so I have referred her to her [...] [place] | | | | | | [address] | | | | | | [phone] | | | | | | | [...] | | | | | [place], [place] | | | | | | [address] | | | | | | [phone] | | | | | | | [...]
--- OUTSIDE RECORDS SUMMARY | ~2019-05-10 | XMS | Encounter Summary ---
Demographics + + + | Address | [address] | | | [place] [address] | + + + | Home Phone [...] [place], [place] | | | | | [address] | | + + + + + | Ellie Vang | ECON | Unknown | | + + + + + Care Team Providers + +------+ + | Care Mica Machine Operator Name | Role | Phone | + +------+ + PCP | Unavailable | + +------+ + Encounter Details +--------+ + + + + | Date | Type | Department | Care Team | Description | +--------+ + + + + | 05/13/ | Results | | Other, Faculty | | | 1992 | Only | | [phone] | | +--------+ + + + + [...] [address] | | | | | | [place], [place] | | | | | | [address] | | | | | | [phone] | | | | | | | | +--------+ + + + + | 06/27/ | Telephone-S | Pre-operative | | | | 2018 | cheduled | Medicine | | | +--------+ + + + + | 06/30/ | Office | Cardiology | Tiny Randell, | | | 2019 | Visit | | [address] | | | | | | [place], [place] | | | | | | [address] | | | | | | [phone] | | | | | | | [...] | | + +---------+ + + | [facility] DEPARTMENT OF | | [...] | CT HEAD WO | Radiologist 1: BRIDGETT, | | | | | JOSE | ALANARadiologist 2: | | | | | | RAISA MONTIEL, | | | | | | DYLAN BHAKTA | | | | | | | | | | | | | | | | | | | | | | | | 63-24-11-69CT SCAN OF | | | | | [...] | | + +---------+ + + | [facility] DEPARTMENT OF | | [...] | | | | | | | 22-17-19-69CT SCAN OF | | | | | [...] At | + + + | Ordered bialey GREENE | | + + + + [...]
--- OUTSIDE RECORDS SUMMARY | ~2019-05-10 | XMS | Encounter Summary ---
Demographics + + + | Address | [address] | | | [place] [address] | + + + | Home Phone [...] + | Katalina Padilla | ECON | [address] | | | | | [place], [place] | | | | | [address] | | + + + + + | Ellie Vang | ECON | Unknown | | + + + + + Care Team Providers + +------+ + | Care Electric Golf Cart Repairer Name | Role | Phone | [...] | | 2015 | | Center at [facility] [address] | [address] | | | | | [address] | [place] [place], | | | | | Mailcode: [place] | [place] [address] | | | | | for Health and | | | | | | [facility] [place] [address] | | | | | | [place], [place] | | | | | | [address] | | | | | | [phone] | | | +--------+ + + + [...] [address] | | | | | | [place], [place] | | | | | | [address] | | | | | | [phone] | | | | | | | [...] | | | | [place], [place] | | | | | | [address] | | | | | | [phone] | | | | | | | | +--------+ + + + + | 07/08/ | Procedure | Surgery | | | | 2019 | Pass | | | | +--------+ + + + + documented as of this encounter Visit Diagnoses Not on filedocumented in this encounter"
--- OUTSIDE RECORDS SUMMARY | ~2019-05-10 | XMS | Encounter Summary ---
Demographics + + + | Address | [address] | | | [place] [address] | + + + | Home Phone [...] [place], [place] | | | | | [address] | | + + + + + | Ellie Vang | ECON | Unknown | | + + + + + Care Team Providers + +------+ + | Care Carboy Filler Name | Role | Phone | [...] | | | | | obesity | [place], [place] | | | | | | (HCC) | [address] | | | | | | Procedures | Phone: | | | | | | PHYSICAL | | | | | | | THERAPY | Fax: | | | | | | REFERRAL | [phone] | | +--------+--------+ + + + + Encounter Details +--------+ + + + + | Date | Type | Department | Care Team | Description | +--------+ + + + + | 06/22/ | Director Of Payroll | Digestive Health | Ion Pandey, | Pre-op evaluation | | 2016 | | Center at [facility] [address] | [address] | (Primary Dx); Morbid | | | | [address] | [place], [place] | obesity (HCC) | | | | Mailcode: Center | [address] | | | | | for Health and | | | | | | Healing, [address] | | | | | | [place], [place] | | | | | | [address] | | | | | | [phone] | | | +--------+ + + + [...] 2019 | Visit | | [address] | | | | | | [place], [place] | | | | | | [address] | | | | | | [phone] | | | | | | | | +--------+ + + + + | 06/27/ | Telephone-S | Pre-operative | | | | 2018 | cheduled | Medicine | | | +--------+ + + + + | 06/30/ | Office | Cardiology | Randell Franks, | | | 2018 | Visit | | [address] | | | | | | [place], [place] | | | | | | [address] | | | | | | [phone] | | | | | | | [...]
--- OUTSIDE RECORDS SUMMARY | ~2019-05-10 | XMS | Encounter Summary ---
Demographics + + + | Address | [address] | | | [place] [address] | + + + | Home Phone [...] Team Providers + +------+ + | Care Dye Reel Operator Helper Name | Role | Phone [...] Diabetes & | Morbid | Kathy Feliciano, COMPENSATION AND BENEFITS ADMINISTRATOR | [address] | | | | Metabolism | obesity | [address] | | | | | ([facility]) | [address], [address] | | | | | Procedures | [address] | Physician's | | | | | CONSULT TO | [place], [place] | Pavilion | | | | | ENDO | [address] | Physician's | | | | | [address] | Phone: | Pavilion | | | | | [address] | [phone] | [place], [place] | | | | | | Fax: | [address] | | | | | | [phone] | Phone: | | | | | | | [phone] | | | | | | | Fax: | | | | | | | [phone] | +--------+--------+ + + + + Encounter Details +--------+ + + + + | Date | Type | Department | Care Team | Description | +--------+ + + + + | 11/15/ | Documentati | Digestive Health | Kathy Feldman, | | | 2012 | on | Center at [facility] [address] | COMPENSATION AND BENEFITS ADMINISTRATOR [address] | | | | | [address] | [facility] [address] | | | | | Mailcode: Center | [place], [place] | | | | | [facility] and | [address] | | | | | [facility] [address] | [phone] | | | | | [place], [place] | | | | | | [address] | | | | | | [phone] | | | +--------+ + + + [...] | | | | | | [place], [place] | | | | | | [address] | | | | | | [phone] | | | | | | | | +--------+ + + + + | 06/27/ | Telephone-S | Pre-operative | | | | 2018 | cheduled | Medicine | | | +--------+ + + + + | 06/30/ | Office | Cardiology | Randell Franks, | | | 2019 | Visit | | [address] | | | | | | [place], [place] | | | | | | [address] | | | | | | [phone] | | | | | | | [...]
--- OUTSIDE RECORDS SUMMARY | ~2019-05-10 | XMS | Encounter Summary ---
Demographics + + + | Address | [address] | | | [place] [address] | + + + | Home Phone [...] [place], [place] | | | | | [address] | | + + + + + | Ellie Vang | ECON | Unknown | | + + + + + Care Team Providers + +------+ + | Care Trash Collector Supervisor Name | Role | Phone | [...] | | 2013 | | Center at [facility] [address] | COLD MILL OPERATOR [address] | | | | | [address] | [facility] [address] | | | | | Mailcode: Center | [place], [place] | | | | | for Health and | [address] | | | | | [facility] 2 | [phone] | | | | | [place], [place] | | | | | | [address] | | | | | | [phone] | | | +--------+ + + + [...] [address] | | | | | | [place], [place] | | | | | | [address] | | | | | | [phone] | | | | | | | [...] | | | | | [place], [place] | | | | | | [address] | | | | | | [phone] | | | | | | | | +--------+ + + + + | 07/08/ | Procedure | Surgery | | | | 2019 | Pass | | | | +--------+ + + + + documented as of this encounter Visit Diagnoses Not on filedocumented in this encounter"
--- OUTSIDE RECORDS SUMMARY | ~2019-05-10 | XMS | Encounter Summary ---
Demographics + + + | Address | [address] | | | [place] [address] | + + + | Home Phone [...] [place], [place] | | | | | [address] | | + + + + + | Ellie Vang | ECON | Unknown | | + + + + + Care Team Providers + +------+ + | Care Neurourologist Name | Role | Phone | + [...] + + | 11/05/ | Hospital | [facility] 14C [address] | Joseph An | | | 2016 - | Encounter | [address] | MD Birgit [address] [facility] | | | | | 14C [facility] | [address] | | | 11/20/ | | [place], [place] | [place], [place] | | | 2016 | | [address] | [address] | | | | | [phone] | [phone] | | | | | | | | | | | | Ana, | | | | | | MD Briana [address] | | | | | | [address] | | | | | | Rd [place], [place] | | | | | | [address] | | | | | | [phone] | | | | | | | | | | | | Carmelina Tucker, | | | | | | JEFFREY-Aimee [address] | | | | | | [address] | | | | | | [place], [place] | | | | | | [address] | | | | | | [phone] | | | | | | | | | | | | Charley Lacey MD | | | | | | Jose Scott MD | | | | | | [address] | | | | | | [address] | | | | | | [place], [place] | | | | | | [address] | | | | | | [phone] | | | | | | | | | | | | Mannie Larkin MD | | | | | | [address] | | | | | | [address] [place], | | | | | | [place] [address] | | | | | | [phone] | | | | | | | | | | | | Tyrone Adrian MD | | | | | | [address] | | | | | | [address] [place], | | | | | | [place] [address] | | | | | | [phone] | | | | | | | [...] did want her to follow up with lead investigator in [place]. She should continue working towards bariatric surgery wh ich will ultimately put less stress on her heart. -Continue torsemide 80mg BID -Increase potassium supplementation to KCl 40mg BID -Daily weights and strict 2g Na 2L fluid restricted diet -Close followup with Dr. Goodrich (appt on 11/25 at 11AM) -Needs followup with cardiology in [place] #Left lower extremity DVT #Presumed PE Asymmetric left lower extremity pain and swelling was suspicious for DVT and confirmed with duplex ultrasound. 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 Started anticoagulation bridge with heparin gtt [...] mouth once daily. , Historical Med CALCIUM [id number]-GENIS ORAL Take 2 tablets by mouth two [...] Cyndi Meier Cardiology Congestive Heart Failure at [facility] Cardiology Additional Instructions/Orders: Diet Diabetic (Consistent [...] Good Yosef Segovia MD PGY-1 Internal Medicine [id number] INPATIENT FACULTY PROGRESS NOTE - GM 1 [...] Right heart failure (HCC) 15) Candidal intertrigo Tyrnoe Adrian MD [facility] 14C director business management Division of Hospital Medicine Department of Medicine [address] [place] [phone] [facility] DEPARTMENT: Hosp- [id number] Place of Service: Date of Service: 11/21/2015 CSN: [id number] Modifiers:GC Resident Involved: Yes Suggested CPT: 14096 Discharge Management < 30 minute documented in this encou nter Medications at Time of Discharge + + + +---------+--------+ + | Medication | Sig | Dispensed | Refills | Start | End Date | | | | | | Date | | + + + +---------+--------+ + | CALCIUM | Take 2 tablets by | | 0 | | | | CRB&KPS-E2-MCM99-GEN | mouth two times | | | [...] (HCC) 15) Candidal intertrigo Tyrone Adrian MD [facility] 14C director business management Division of Hospital Medicine Department of Medicine [facility] [address] [facility] [address] [place] [address] [facility] DEPARTMENT: Hosp- [id number] Place of Service: Date of Service: 11/20/2015 CSN: [id number] Modifiers:GC Resident Involved: Yes Suggested CPT: 46213 Subsequent Visit Exp Prob Foc/Mod Complexity 25 min olleen Diamond - 016 6:49 AM PDT 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 Contact INTERNATIONAL ACCOUNTANT if TV-US i s ordered. - TV-US [...] - topiramate 200mg po bid JEFFREY Gee-S2 [facility] PA Student Feeding: <2L fluid, Diabetic diet, >2g na Analgesia: APAP, gabapentin, hydrocodone Thromboembolic prophylaxis: Heparin/warfarin Glycemic control: moderate ISS Mobility: Encourage walking and movement Discharge: Expect hospital stay another 2-3 days with PCP FU (Dr. Goodrich) on Saturday 11/25 @ 1 1 am. - Referral to Digital Composer Code status: FULL Associated attestation - Yosef Segovia - 11/20/2015 7:50 PM PDTI have read the [facility] t note by PA student Dara [...] PCP Yosef Segovia MD PGY-1 Internal Medicine [id number] Tyrone Adrian MD - 11/19/2015 11:51 AM [...] if the PO works) Tyrone Adrian MD [facility] 14C director business management Division of Hospital Medicine Department of Medicine [address] [place] [address] [facility] DEPARTMENT: Hosp- [id number] Place of Service: - Date of Service: 11/19/2015 CSN: [id number] Modifiers:GC Resident Involved: Yes Suggested CPT: 74538 Subsequent Visit Exp Prob Foc/Mod Complexity 25 min lshell Colleen - 016 6:24 AM PDT PHYSICIAN COMBAT SYSTEMS OPERATOR [employer] STUDENT PROGRESS NOTE FOR EDUCATIONAL PURPOSES ONLY [...] of ovarian cysts or menses related. Contact INTERNATIONAL ACCOUNTANT if TV-US i s ordered. - TV-US [...] - topiramate 200mg po bid JEFFREY Gee-S2 [employer] PA Student Feeding: <2L fluid, Diabetic diet, >2g na Analgesia: APAP, gabapentin, hydrocodone Thromboembolic prophylaxis: Heparin/warfarin Glycemic control: moderate ISS Mobility: Encourage walking and movement Discharge: Expect hospital stay another 3-5 days with diuresis until more euvolemic and R h eart cath can be completed. Code status: FULL Associated attestation - Andrews, Yosef Pryor - 11/19/2015 7:38 PM PDTI [...] can. Yosef Segovia MD PGY-1 Internal Medicine [id number] Tyrone Adrian MD - 11/18/2015 2:01 PM [...] (HCC) 15) Candidal intertrigo Tyrone Adrian MD [facility] 14C director business management Division of Hospital Medicine Department of Medicine [facility] [address] [place] [address] [facility] DEPARTMENT: Hosp- [id number] Place of Service: - Date of Service: 11/18/2015 CSN: [id number] Modifiers:GC Resident Involved: Yes Suggested CPT: 40579 Subsequent Visit Exp Prob Foc/Mod Complexity 25 [...] plan. Yosef Segovia MD PGY-1 Internal Medicine [id number] signed by Yosef Segovia at 11/18/2015 11:52 [...] (HCC) 15) Candidal intertrigo Tyrone Adrian MD [facility] 14C director business management Division of Hospital Medicine Department of Medicine [facility] [address] [place] [address] [facility] DEPARTMENT: Hosp- [id number] Place of Service: - Date of Service: 11/17/2015 CSN: [id number] Modifiers:GC Resident Involved: Yes Suggested CPT: 80094 Subsequent Visit Exp Prob Foc/Mod Complexity 25 min lowersColleen - 016 6:40 AM PDT PHYSICIAN COMBAT SYSTEMS OPERATOR [employer] STUDENT PROGRESS NOTE FOR EDUCATIONAL PURPOSES ONLY [...] - topiramate 200mg po bid JEFFREY Gee-S2 [facility] PA Student Feeding: <2L fluid, Diabetic [...] can Yosef Segovia MD PGY-1 Internal Medicine [id number] Tyrone Adrian MD - 11/16/2015 4:59 PM PDTINPATIENT FACULTY PROGRESS NOTE - GM 1 Author; Tyrone Adrian MD Attending Physician: Tyrone Adrian MD Hospital Day: 10 PCP: Fadi Goodrich DO PCP PCP Patient's Name: Elzbieta Cristina Today's Date: 11/16/2015 I personally interviewed the patient, performed the de lac ruz elements of the physical examinatio n, and [...] (HCC) 15) Candidal intertrigo Tyrone Adrian MD [facility] 14C director business management Division of Hospital Medicine Department of Medicine [facility] & [address] [place] [phone] [facility] DEPARTMENT: Hosp- [id number] Place of Service: Date of Service: 11/16/2015 CSN: [id number] Modifiers:GC Resident Involved: Yes Suggested CPT: 39222 Subsequent Visit Exp Prob Foc/Mod Complexity 25 min olleen Diamond - 016 6:43 AM PDT PHYSICIAN COMBAT SYSTEMS OPERATOR [employer] STUDENT PROGRESS NOTE FOR EDUCATIONAL PURPOSES ONLY [...] - topiramate 200mg po bid JEFFREY Gee-S2 [facility] PA Student Feeding: <2L fluid, Diabetic [...] assistance of Grisel Pearl. Patient lives i [facility] which is quite a distance to travel to and from [place]. We would ideally arran ge cardiac follow [...] (HCC) 15) Candidal intertrigo Tyrone Adrian MD [facility] 14C director business management Division of [facility] Medicine Department of Medicine [facility] [address] [place] [address] [facility] DEPARTMENT: Hosp- [id number] Place of Service: - Date of Service: 11/15/2015 CSN: [id number] Modifiers:GC Resident Involved: Yes Suggested CPT: 07155 Subsequent Visit Detailed/High complexity 35 min lColleen goff - 016 6:33 AM PDT PHYSICIAN COMBAT SYSTEMS OPERATOR [employer] STUDENT PROGRESS NOTE FOR EDUCATIONAL PURPOSES ONLY [...] last 8 days Intake 9571.5 ml Output 69879 ml Net since Admission -23032.5 ml -25.938 L = 57.0636 lbs Constitutional: [...] - topiramate 200mg po bid JEFFREY Gee-S2 [facility] PA Student Feeding: <2L fluid, Diabetic diet, >2g na Analgesia: APAP, gabapentin, hydrocodone Thromboembolic prophylaxis: Heparin/warfarin Glycemic control: moderate ISS Mobility: Encourage walking and movement Discharge: Expect hospital stay another 3-5 days with diuresis until more euvolemic and R h eart cath can be completed. Code status: FULL Associated attestation - AndrewsYosef summers Barron - 11/15/2015 2:59 PM PDTI [...] can Yosef Segovia MD PGY-1 Internal Medicine [id number] Tyrone Adrian MD - 11/14/2015 4:16 PM PDTINPATIENT FACULTY PROGRESS NOTE - GM 1 Author; Tyrone Adrain MD Attending Physician: Tyrone Adrian MD Hospital [...] (HCC) 15) Candidal intertrigo Tyrone Adrian MD [facility] 14C director business management Division of Hospital Medicine Department of Medicine [address] [place] [address] [facility] DEPARTMENT: Hosp- [id number] Place of Service: Date of Service: 11/14/2015 CSN: [id number] Modifiers:GC Resident Involved: Yes Suggested CPT: 53129 Subsequent Visit Exp Prob Foc/Mod Complexity 25 min Colleen Tello - 016 6:42 AM PDT PHYSICIAN COMBAT SYSTEMS OPERATOR [employer] STUDENT PROGRESS NOTE FOR EDUCATIONAL PURPOSES ONLY [...] - topiramate 200mg po bid JEFFREY Gee-S2 [facility] PA Student Feeding: <2L fluid, Diabetic [...] outpatient Yosef Segovia MD PGY-1 Internal Medicine [id number] Tyrone Adrian MD - 11/13/2015 4:06 PM [...] (HCC) 15) Candidal intertrigo Tyrone Adrian MD [facility] 14C director business management Division of Hospital Medicine Department of Medicine [facility] [address] [facility] [place] [address] [facility] DEPARTMENT: Hosp- [id number] Place of Service: - Date of Service: 11/13/2015 CSN: [id number] Modifiers:GC Resident Involved: Yes Suggested CPT: 61630 Subsequent Visit Detailed/High complexity 35 min lfelixsColleen - 016 6:36 AM PDT PHYSICIAN COMBAT SYSTEMS OPERATOR [employer] STUDENT PROGRESS NOTE FOR EDUCATIONAL PURPOSES ONLY [...] - topiramate 200mg po bid JEFFREY Gee-S2 [facility] PA Student Feeding: <2L fluid, Diabetic [...] VTE. Yosef Segovia MD PGY-1 Internal Medicine [id number] Tyrone Adrian MD - 11/12/2015 1:59 PM [...] 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, J BUFFET RUNNER, at this point not definitive Plan: continue [...] ongoing 12) Candidal intertrigo Tyrone Adrian MD [facility] 14C director business management Division of Hospital Medicine Department of Medicine [facility] [address] [place] [address] [facility] DEPARTMENT: Hosp- [id number] Place of Service: [facility] [id number] Date of Service: 11/12/2015 CSN: [id number] Modifiers:GC Resident Involved: Yes Suggested CPT: 91334 Subsequent Visit Detailed/High complexity 35 min lColleen goff - 016 6:31 AM PDT PHYSICIAN COMBAT SYSTEMS OPERATOR [employer] STUDENT PROGRESS NOTE FOR EDUCATIONAL PURPOSES ONLY INPATIENT PROGRESS NOTE PATIENT INFORMATION Patient Name: Elzbieta Cristina Date of : 1975 Date of Admission: 11/06/2015 PCP: Fadi Goodrich DO Room/Bed: [facility]/08/08 Attending Provider: Mannie Larkin MD Encounter Information [...] inch petechial horizontal stripe across proximal ti pteerson, improving. Red, beefy erythematous regions with circumscribed [...] surgeries, torsemide resistance, pickwickian syndrome (OHS ), OMNROE or nephrotic syndrome. Her serum alb is [...] - topiramate 200mg po bid JEFFREY Gee-S2 [facility] PA Student Feeding: <2L fluid, Diabetic [...] disease. Yosef Segovia MD PGY-1 Internal Medicine [id number] Mannie Larkin MD - 11/11/2015 9:19 PM [...] diuresis then RHC Mannie Larkin MD Clinical Summer School Coordinator, Internal Medicine Pager [phone] amColleen goff - 10/25 6:40 AM PDT PHYSICIAN COMBAT SYSTEMS OPERATOR [employer] STUDENT PROGRESS NOTE FOR EDUCATIONAL PURPOSES ONLY INPATIENT PROGRESS NOTE PATIENT INFORMATION Patient Name: Elzbieta Cristina Date of : 1975 Date of Admission: 11/06/2015 PCP: Fadi Goodrich DO Room/Bed: Attending Provider: Mannie Lrakin MD Encounter Information Date of Service: 11/08/2015 [...] - topiramate 200mg po bid JEFFREY Gee-S2 [facility] PA Student Feeding: <2L fluid, Diabetic [...] pain Yosef Segovia MD PGY-1 Internal Medicine [id number] Maria Eugenia Leiva RCP - 11/11/2015 6:39 [...] another 5-7 days Mannie Larkin MD Clinical Summer School Coordinator, Internal Medicine Pager [phone] osef Segovia T - 7:24 AM PDT [...] plan. Yosef Segovia MD PGY-1 Internal Medicine [id number] signed by Yosef Segovia at 11/10/2015 2:50 [...] and coordination of care. Briana Perez MD [facility] Division of Hospital Medicine Grisel Mcghee [...] Maker Primary Surrogate Decision Maker Katalina Padilla [facility] [place] [phone] Advanced Directives Existence of Advanced Directive Reviewed: No- Has Interest (11/09/15 1022) Advanced Directives Reviewed Comments: I gave a copy of advance directives (11/09/15 1022) KRISHNA Huertas NP [facility] 14C [address] [facility] [address] [place] [phone] lowersColleen - 6:41 AM PDT PHYSICIAN COMBAT SYSTEMS OPERATOR [employer] STUDENT PROGRESS NOTE FOR EDUCATIONAL PURPOSES ONLY [...] of acute blood loss and anemia of chromium plater ela dz and thalassemia is less likely. [...] AM Yosef Segovia MD PGY-1 Internal Medicine [id number] Briana Perez MD - 11/08/2015 2:01 PM [...] and coordination of care. Briana Perez MD [facility] Division of Hospital Medicine ara Colleen - 11/08/2015 6:26 AM PDT PHYSICIAN COMBAT SYSTEMS OPERATOR [employer] STUDENT PROGRESS NOTE FOR EDUCATIONAL PURPOSES ONLY INPATIENT PROGRESS NOTE PATIENT INFORMATION Patient Name: Elzbieta Cristina Date of : 1975 Date of Admission: 11/06/2015 PCP: Fadi Goodrich DO Room/Bed: Attending Provider: Briana Peerz MD Encounter Information Date of Service: 11/08/2015 [...] po bid (topamax, nerve pain) JEFFREY Gee-S2 [facility] PA Student Feeding: <2L fluid, Diabetic [...] Hair Md, MSc Internal Medicine PGY2 Pager [phone] Kwadwo Freire - 11/07/2015 2:05 PM PDTTransthoracic [...] plan. Yosef Segovia MD PGY-1 Internal Medicine [id number] lfelixsColleen - 016 8:43 AM PDT PHYSICIAN COMBAT SYSTEMS OPERATOR [employer] STUDENT PROGRESS NOTE FOR EDUCATIONAL PURPOSES ONLY INPATIENT PROGRESS NOTE PATIENT INFORMATION Patient Name: Elzbieta Cristina Date of : 1975 Date of Admission: 11/06/2015 PCP: Fadi Goodrich DO Room/Bed: ED803/803 Attending Provider: Carmelina Tucker PA-C Encounter Information Date of Service: 11/07/2015 Hospital Day #: 1 ID: Elzbieta Cristnia, a 40 year old female with hx [...] perfusion. - consider US to evaluate liver (JOLX-jdg-ohyifqhmw fatty liver dz) and look for ascites. [...] and movement Code status: [facility] Plan of Treatment +--------+ + + + + | Date | Type | Specialty | Care Team | Description | +--------+ + + + + | 05/13/ | Office | Plastic Surgery | Archie Ybarra MD | | | 2018 | Visit | | [address] | | | | | | [place], [place] | | | | | | [address] | | | | | | [phone] | | | | | | | [...] | | | | | [address] [place], [place] | | | | | | [address] | | | | | | [phone] | | | | | | | [...] [facility] | [address] | [place], [place] | | | L[place]PEZ POINT OF CARE | [address] | [address] | | | TESTS | | | [...] + + + + + | [facility] | [address] | [place] [address] | | | SERVICES, LYDIA | LESLY [...] [facility] | [address] | [place] [address] | | | SERVICES, CORE | PARK [...] | | | LABORATORY | | | NIGERIAN | | | SERVICES, | | | [...] the MDRD equation recommended by the | [facility] | | National Kidney Disease Education Program. [...] + + + + + | [facility] | [address] | [place] [address] | | | CLAIRE, LYDIA | LESLY [...] | 60 - 99 mg/dL | [facility] - | | | GLUCOSE, | [...] [facility] | [address] | [place], [place] | | | JUSTINE DAWN OF JAKY | [facility] | [address] | | | TESTS | | | [...] [facility] | [address] | [place], [place] | | | L[place]PEZ POINT OF CARE | [address] | [address] | | | TESTS | | | [...] | [facility] | [address] | [place], [place] | | | JUSTINE DAWN OF CARE | [facility] | [address] | | | TESTS | | | [...] [facility] | [address] | [place], [place] | | | JUSTINE DAWN OF JAKY | [address] | [address] | | | TESTS | | | [...] AMES | [address] | [place], [place] | | | JUSTINE DAWN OF JAKY | [address] | [address] | | | TESTS | | | [...] + + + + + | [facility] | [address] | [place] [address] | | | LYDIA RANGEL | LESLY [...] + + + + + | [facility] | [address] | [place] [address] | | | SERVICES, CORE | LESLY [...] + + + + + | [facility] | [address] | [place] [address] | | | SERVICES, CORE | PARK [...] | | | LABORATORY | | | NIGERIAN | | | SERVICES, | | | [...] | + + + + + | [facility] | [address] | [place] [address] | | | SERVICES, CORE | LESLY [...] [place] | [address] | [place], [place] | | | JUSTINE DAWN OF CARE | [address] | [address] | | | TESTS | | | [...] NKECHI AMES | [address] | [place], [place] | | | JUSTINE DAWN OF [facility] | [address] | [address] | | | TESTS | | | [...] + + + + + | [facility] | [address] | [place] [address] | | | SERVICES, CORE | [address] | | | + + + + + MAGNESIUM, PLASMA (11/19/2015 2:20 PM PDT) + +-------+ + + + | Component | Value | Ref Range | Performed | Pathologist | | | | | At | Signature | + +-------+ + + + | MAGNESIUM,P | 2.2 | 1.8 - 2.5 mg/dL | [facility] | | | LASMA | | | [...] | + + + + + | [facility] | [address] [facility] | [place] [address] | | | SERVICES, CORE | LESLY [...] | | | LABORATORY | | | NIGERIAN | | | SERVICES, | | | [...] + + + + + | [facility] | [address] | [place] [address] | | | SERVICES, CORE | LESLY [...] | 60 - 99 mg/dL | [facility] - | | | GLUCOSE, | [...] + + + | NKECHI AM[facility] | [address] | [place], [place] | | | LÓPEZ MULBERRY OF [facility] | [address] | [address] | | | TESTS | | | [...] [facility] | [address] | [place], [place] | | | JUSTINE DAWN OF JAKY | [address] | [address] | | | TESTS | | | [...] - [facility] | [address] | [place], [place] | | | L[place]PEZ POINT OF CARE | [address] | [address] | | | TESTS | | | [...] | 60 - 99 mg/dL | [facility] - | | | GLUCOSE, | [...] AMES | [address] | [place], [place] | | | LÓPEZ POINT OF [facility] | [address] | [address] | | | TESTS | | | [...] [facility] | [address] | [place] [address] | | | SERVICES, CORE | [address] | | | + + + + + MAGNESIUM, PLASMA (11/18/2015 2:25 PM PDT) + +-------+ + + + | Component | Value | Ref Range | Performed | Pathologist | | | | | At | Signature | + +-------+ + + + | MAGNESIUM,P | 2.2 | 1.8 - 2.5 mg/dL | [facility] | | | LASMA | | [...] + + + + + | [facility] | [address] | [place] [address] | | | SERVICES, CORE | LESLY [...] | 60 - 99 mg/dL | [facility] - | | | GLUCOSE, | [...] AMES | [address] | [place], [place] | | | L[place]PEZ POINT OF CARE | [address] | [address] | | | TESTS | | | [...] [facility] | [address] | [place], [place] | | | JUSTINE DAWN OF CARE | [facility] | [address] | | | TESTS | | | [...] + + + + + | [facility] | [address] [facility] | [place] [address] | | | SERVICES, CORE | PARK [...] + + + + + | [facility] | [address] | [place] [address] | | | SERVICES, CORE | PARK [...] + + + + + | [facility] [employer] | [address] | [place] [address] | | | SERVICES, CORE | LESLY [...] | | | LABORATORY | | | NIGERIAN | | | SERVICES, | | | [...] + + + + + | [facility] | [address] | [place] [address] | | | SERVICES, CORE | LESLY [...] | 60 - 99 mg/dL | [facility] - | | | GLUCOSE, | [...] AMES | [address] | [place], [place] | | | JUSTINE DAWN OF JAKY | [address] | [address] | | | TESTS | | | [...] [facility] | [address] | [place], [place] | | | LÓPEZ POINT OF CARE | [address] | [address] | | | TESTS | | | [...] [facility] | [address] | [place], [place] | | | JUSTINE DAWN OF CARE | [address] | [address] | | | TESTS | | | [...] | 60 - 99 mg/dL | [facility] - | | | GLUCOSE, | [...] AMES | [address] | [place], [place] | | | JUSTINE DAWN OF JAKY | [address] | [address] | | | TESTS | | | [...] + + + + + | [facility] [employer] | [address] | [place] [address] | | | SERVICES, CORE | LESLY [...] | + + + + + | [facility] | [address] | [place] [address] | | | SERVICES, [facility] | [address] | | [...] [facility] | [address] | [place] [address] | | | SERVICES, CORE | PARK [...] | | | LABORATORY | | | NIGERIAN | | | SERVICES, | | | [...] the MDRD equation recommended by the | [facility] | | National Kidney Disease Education [...] + + + + + | [facility] | [address] | [place] [address] | | | CLAIRE, LYDIA | LESLY [...] KALEY ALEJANDRA | [address] | [place] [address] | | | SERVICES, CORE | PARK [...] + + + + + | [facility] | [address] | [place] [address] | | | SERVICES, CORE | LESLY [...] | 60 - 99 mg/dL | [facility] - | | | GLUCOSE, | [...] AMES | [address] | [place], [place] | | | LÓPEZ POINT OF CARE | [address] | [address] | | | TESTS | | | [...] [facility] | [address] | [place] | | | JUSTINE DAWN OF CARE | [address] [address] | [address] | | | TESTS | | | [...] NKECHI AMES | [address] | [place], [place] | | | [facility] | [address] | [address] | | | TESTS | | | [...] + + + + + | [facility] | [address] | [place] [address] | | | SERVICES, CORE | LESLY [...] (H) | 60 - 99 mg/dL | [facility] - | | | GLUCOSE, | | [...] AMES | [address] | [place], [place] | | | [facility] | [address] | [address] | | | TESTS | | | [...] + + + + + | [facility] | [address] [facility] | [place] [address] | | | SERVICES, CORE | LESLY [...] + + + + + | [facility] | [address] | [place] [address] | | | SERVICES, CORE | PARK [...] | | | LABORATORY | | | NIGERIAN | | | SERVICES, | | | [...] | + + + + + | [facility] | [address] | [place] [address] | | | CLAIRE, LYDIA | LESLY [...] [facility] | [address] | [place] [address] | | | LYDIA RANGEL | LESLY [...] | 60 - 99 mg/dL | [facility] - | | | GLUCOSE, | [...] KWAKU | [address] | [place], [place] | | | [facility] | [address] | [address] | | | TESTS | | | [...] | + + + + + | [facility] | [address] | [place] [address] | | | SERVICES, CORE | LESLY [...] MAR[facility] | [address] | [place], [place] | | | [facility] | [address] | [address] | | | TESTS | | | [...] | + + + + + | [facility] | [address] | [place] [address] | | | SERVICES, CORE | LESLY [...] | 60 - 99 mg/dL | [facility] - | | | GLUCOSE, | [...] AMES | [address] | [place], [place] | | | [facility] | [address] | [address] | | | TESTS | | | [...] KWAKU | [address] | [place], [place] | | | [facility] | [address] | [address] | | | TESTS | | | [...] | + + + + + | [facility] | [address] | [place] [address] | | | SERVICES, CORE | LESLY [...] | + + + + + | [facility] | [address] | [place] [address] | | | LYDIA RANGEL | LESLY [...] + + + + + | [facility] | [address] [facility] | [place] [address] | | | SERVICES, CORE | LESLY [...] + + + + + | [facility] | [address] | [place] [address] | | | SERVICES, CORE | PARK [...] | | | LABORATORY | | | NIGERIAN | | | SERVICES, | | | [...] | + + + + + | [facility] | [address] [facility] | [place] [address] | | | LYDIA RANGEL | LESLY [...] AMES | [address] | [place], [place] | | | [facility] | [address] | [address] | | | TESTS | | | [...] + + + + + | [facility] | [address] | [place] [address] | | | SERVICES, CORE | PARK [...] | 60 - 99 mg/dL | [facility] - | | | GLUCOSE, | [...] AMES | [address] | [place], [place] | | | [facility] | [address] | [address] | | | TESTS | | | [...] MARQUAM | [address] | [place], [place] | | | [facility] | [address] | [address] | | | TESTS | | | [...] + + + + + | [facility] | [address] | [place] [address] | | | SERVICES, CORE | LESLY [...] | 60 - 99 mg/dL | [facility] - | | | GLUCOSE, | [...] AMES | [address] | [place], [place] | | | [facility] | [address] | [address] | | | TESTS | | | [...] | + + + + + | [facility] | [address] [facility] | [place] [address] | | | SERVICES, CORE | LESLY [...] | + + + + + | [facility] | [address] | [place] [address] | | | LYDIA RANGEL | LESLY [...] [facility] | [address] | [place] [address] | | | SERVICES, CORE | PARK [...] | | | LABORATORY | | | NIGERIAN | | | SERVICES, | | | [...] + + + + + | [facility] | [address] [facility] | [place] [address] | | | CLAIRE, LYDIA | LESLY [...] [facility] | [address] | [place], [place] | | | [facility] | [facility] | [address] | | | TESTS | | | [...] AMES | [address] | [place], [place] | | | [facility] | [address] | [address] | | | TESTS | | | [...] MARQUAM | [address] | [place], [place] | | | [facility] | [address] | [address] | | | TESTS | | | [...] - KW[facility]U | [address] | [place], [place] | | | [facility] | [facility] | [address] | | | TESTS | | | [...] | + + + + + | [facility] | [address] | [place] [address] | | | SERVICES, LYDIA | LESLY [...] + + + + + | [facility] | [address] | [place] [address] | | | LYDIA RANGEL | LESLY [...] + + + + + | [facility] | [address] | [place] [address] | | | SERVICES, CORE | LESLY [...] + + + + + | [facility] | [address] | [place] [address] | | | SERVICES, CORE | [address] | | | + + + + + MAGNESIUM, PLASMA (11/13/2015 5:44 AM PDT) + +-------+ + + + | Component | Value | Ref Range | Performed | Pathologist | | | | | At | Signature | + +-------+ + + + | MAGNESIUM,P | 2.3 | 1.8 - 2.5 mg/dL | [facility] | | | LASMA | | | [...] | + + + + + | [facility] | [address] [facility] | [place] [address] | | | SERVICES, CORE | LESLY [...] | | | LABORATORY | | | NIGERIAN | | | SERVICES, | | | [...] + + + + + | [facility] | [address] | [place] [address] | | | SERVICES, CORE | [address] | | | + + + + + MAGNESIUM, PLASMA (11/12/2015 11:47 PM PDT) + +-------+ + + + | Component | Value | Ref Range | Performed | Pathologist | | | | | At | Signature | + +-------+ + + + | MAGNESIUM,P | 2.3 | 1.8 - 2.5 mg/dL | [facility] | | | LASMA | | | [...] | + + + + + | [facility] | [address] | [place] [address] | | | SERVICES, CORE | LESLY [...] | | | LABORATORY | | | NIGERIAN | | | SERVICES, | | | [...] + + + + + | [facility] | [address] | [place] [address] | | | SERVICES, CORE | LESLY [...] | 60 - 99 mg/dL | [facility] - | | | GLUCOSE, | [...] AMES | [address] | [place], [place] | | | [facility]ARE | [address] | [address] | | | TESTS | | | [...] MARQUAM | [address] | [place] | | | [facility] | [address] | [address] | | | TESTS | | | [...] MARQUAM | [address] | [place], [place] | | | [facility] | [facility] | [address] | | | TESTS | | | [...] AMES | [address] | [place], [place] | | | [facility] | [address] | [address] | | | TESTS | | | [...] + + + + + | [facility] [employer] | [address] | [place] [address] | | | SERVICES, LYDIA | LESLY [...] + + + + + | [facility] | [address] | [place] [address] | | | LYDIA RANGEL | LESLY [...] [facility] | [address] | [place] [address] | | | SERVICES, CORE | [address] [...] | | | LABORATORY | | | NIGERIAN | | | SERVICES, | | | [...] the MDRD equation recommended by the | [facility] | | National Kidney Disease Education Program. [...] + + + + + | [facility] | [address] | [place] [address] | | | CLAIRE, LYDIA | LESLY [...] [facility] | [address] | [place], [place] | | | [facility] | [address] | [address] | | | TESTS | | | [...] | + + + + + | [facility] | [address] | [place] [address] | | | SERVICES, CORE | LESLY [...] [facility] | [address] | [place] [address] | | | SERVICES, CORE | [address] [...] | + + + + + | [facility] | [address] | [place] [address] | | | SERVICES, CORE | [address] [...] + + + + + | [facility] | [address] | [place] [address] | | | SERVICES, CORE | LESLY [...] | 60 - 99 mg/dL | [facility] - | | | GLUCOSE, | [...] AMES | [address] | [place], [place] | | | [facility] | [address] | [address] | | | TESTS | | | [...] MARQU[facility] | [address] | [place], [place] | | | [facility] CARE | [address] | [address] | | | TESTS | | | [...] | + + + + + | [facility] | [address] | [place] [address] | | | SERVICES, [facility] | [address] | | [...] | 60 - 99 mg/dL | [facility] - | | | GLUCOSE, | [...] AMES | [address] | [place], [place] | | | [facility] | [facility] | [address] | | | TESTS | | | [...] | + + + + + | [employer] | [address] | [place] [address] | | | SERVICES, CORE | [...] | + + + + + | [facility] | [address] | [place] [address] | | | SERVICES, CORE | LESLY [...] [facility] | [address] | [place] [address] | | | SERVICES, CORE | [address] [...] | | | LABORATORY | | | NIGERIAN | | | SERVICES, | | | [...] | + + + + + | [employer] | [address] | [place] [address] | | | CLAIRE, CORE | LESLY [...] [facility] | [address] | [place], [place] | | | [facility] | [facility] | [address] | | | TESTS | | | [...] + + + + + | [facility] | [address] | [place] [address] | | | SERVICES, CORE | LESLY [...] (H) | 60 - 99 mg/dL | [facility] - | | | GLUCOSE, | | [...] AMES | [address] | [place], [place] | | | [facility] | [address] | [address] | | | TESTS | | | [...] MARQU[facility] | [address] | [place], [place] | | | [facility] | [address] | [address] | | | TESTS | | | [...] + + + + + | [facility] | [address] | [place] [address] | | | SERVICES, CORE | LESLY [...] | 60 - 99 mg/dL | [facility] - | | | GLUCOSE, | [...] AMES | [address] | [place], [place] | | | [facility] | [address] | [address] | | | TESTS | | | [...] | + + + + + | [facility] | [address] | [place] [address] | | | SERVICES, CORE | LESLY [...] + + + + + | [facility] | [address] | [place] [address] | | | SERVICES, CORE | LESLY [...] [facility] | [address] | [place] [address] | | | SERVICES, CORE | [address] [...] | | | LABORATORY | | | NIGERIAN | | | SERVICES, | | | [...] the MDRD equation recommended by the | [facility] | | National Kidney Disease Education Program. [...] + + + + + | [facility] | [address] | [place] [address] | | | LYDIA RANGEL | LESLY [...] | + + + + + | [facility] | [address] | [place] [address] | | | SERVICES, CORE | LESLY [...] + + + + + | [facility] | [address] | [place] [address] | | | SERVICES, CORE | LESLY [...] | 60 - 99 mg/dL | [facility] - | | | GLUCOSE, | [...] AMES | [address] | [place], [place] | | | [facility] | [address] | [address] | | | TESTS | | | [...] MARQU[facility] | [address] | [place], [place] | | | HILL, POINT OF CARE | [address] | [address] | | | TESTS | | | [...] Anasarca A41.9 Sepsis, due to unspecified organism ([facility]) I50.9 Heart | | | failure, unspecified ([facility]) I82.402 DVT (deep venous thrombosis), | | | left (HCC) PICC/Midline Insertion Procedure Note | | | Indications:Frequent lab draws and Administration IV fluids and meds | | | Procedure location: Unit:[facility] Room: 13 Providers: PICC Nurse | [...] | pause verifies correct patient, procedure, equipment, customer support manager | | | and site/side [...] | area Cephalic vein. Catheter lot number: [id number] with a length of | | | [...] [facility] | [address] | [place] | | | [facility] | [address] | [address] | | | TESTS | | | [...] + + + + + | [facility] | [address] | [place] [address] | | | SERVICES, CORE | [address] [...] (H) | 60 - 99 mg/dL | [facility] - | | | GLUCOSE, | | [...] AMES | [address] | [place], [place] | | | [facility] | [facility] | [address] | | | TESTS | | | [...] + + + + + | [facility] | [address] [facility] | [place] [address] | | | LYDIA RANGEL | LESLY [...] + + + + + | [facility] | [address] [facility] | [place] [address] | | | SERVICES, CORE | [address] [...] | [facility] | [address] [facility] | [place] [address] | | | SERVICES, CORE | [address] [...] | | | LABORATORY | | | NIGERIAN | | | SERVICES, | | | [...] the MDRD equation recommended by the | [facility] | | National Kidney Disease Education Program. [...] + + + + + | [facility] | [address] | [place] [address] | | | LYDIA RANGEL | LESLY [...] | 60 - 99 mg/dL | [facility] - | | | GLUCOSE, | [...] LANEYQUAM | [address] | [place], [place] | | | [facility] | [address] | [address] | | | TESTS | | | [...] AMES | [address] | [place], [place] | | | [facility] | [facility] | [address] | | | TESTS | | | [...] [facility] | [address] | [place] [address] | | | SERVICES, CORE | [address] [...] | + + + + + | [facility] | [address] | [place] [address] | | | SERVICES, CORE | [address] [...] + + + + + | [facility] [employer] | [address] | [place] [address] | | | LYDIA RANGEL | LESLY [...] [facility] | [address] | [place], [place] | | | [facility] | [address] | [address] | | | TESTS | | | [...] | 60 - 99 mg/dL | [facility] - | | | GLUCOSE, | [...] AMES | [address] | [place] | | | [facility]ARE | [address] | [address] | | | TESTS | | | [...] MARQU[facility] | [address] | [place], [place] | | | [facility] | [address] | [address] | | | TESTS | | | [...] [facility] | [address] | [place] [address] | | | SERVICES, CORE | LESLY [...] [facility] | [address] | [place] [address] | | | SERVICES, CORE | [address] [...] [facility] | [address] | [place] [address] | | | SERVICES, CORE | [address] [...] | + + + + + | [facility] | [address] | [place] [address] | | | LYDIA RANGEL | LESLY [...] [facility] | [address] | [place] [address] | | | SERVICES, CORE | [address] [...] | | | LABORATORY | | | NIGERIAN | | | SERVICES, | | | [...] the MDRD equation recommended by the | [facility] | | National Kidney Disease Education [...] + + + + + | [facility] | [address] | [place] [address] | | | LYDIA RANGEL | LESLY [...] | + + + + + | [facility] | [address] | [place] [address] | | | LYDIA RANGEL | LESLY [...] | 60 - 99 mg/dL | [facility] - | | | GLUCOSE, | [...] [facility] | [address] | [place], [place] | | | [facility] | [address] | [address] | | | TESTS | | | [...] | + + + + + | [facility] | [address] [facility] | [place] [address] | | | SERVICES, CORE | LESLY [...] [facility] | [address] | [place], [place] | | | [facility] | [facility] | [address] | | | TESTS | | | [...] - [facility] | [address] | [place], [place] | | | [facility] | [address] | [address] | | | TESTS | | | [...] DEPT OF | [address] | [place], [place] | | | CARDIOLOGY | [address] | [address] | | + + + + + [...] AMES | [address] | [place], [place] | | | [facility] | [address] | [address] | | | TESTS | | | [...] | | | LABORATORY | | | NIGERIAN | | | SERVICES, | | | [...] [facility] | [address] | [place] [address] | | | SERVICES, CORE | LESLY [...] [facility] | [address] | [place] [address] | | | SERVICES, CORE | [address] [...] | + + + + + | [facility] | [address] | [place] [address] | | | SERVICES, CORE | [address] [...] AMES | [address] | [place], [place] | | | [facility] | [address] | [address] | | | TESTS | | | [...] [facility] | [address] | [place] [address] | | | SERVICES, CORE | [address] [...] + + + + + | [facility] | [address] | [place] [address] | | | CLAIRE, LYDIA | LESLY [...] + + + + + | [facility] | [address] | [place] [address] | | | SERVICES, CORE | LESLY [...] [facility] | [address] | [place] [address] | | | SERVICES, LYDIA | LESLY [...] [facility] | [address] | [place], [place] | | | [facility] | [address] | [address] | | | TESTS | | | [...] + + + + + | [facility] | [address] | [place] [address] | | | SERVICES, CORE | LESLY [...] [facility] | [address] | [place] [address] | | | SERVICES, CORE | [address]ARK [...] [facility] | [address] | [place] [address] | | | SERVICES, CORE | [address] [...] | | | LABORATORY | | | NIGERIAN | | | SERVICES, | | | [...] [facility] | [address] | [place] [address] | | | SERVICES, LYDIA | LESLY [...] ED | | | | | | felling 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 | [place], [place] | | | [facility] | [address] | [address] | | | TESTS | | | [...] [facility] | [address] | [place], [place] | | | [facility] | [address] | [address] | | | TESTS | | | [...] | + + + + + | [facility] | [address] | [place] [address] | | | LYDIA RANGEL | LESLY [...] DEPT OF | [address] | [place], [place] | | | CARDIOLOGY | [address] | [address] | | + + + + + [...] [facility] | [address] | [place] [address] | | | LYDIA RANGEL | LESLY [...] [facility] | [address] | [place] [address] | | | SERVICES, CORE | [address] [...] | | | LABORATORY | | | NIGERIAN | | | SERVICES, | | | [...] | + + + + + | [facility] | [address] | [place] [address] | | | SERVICES, [facility] | [address] | | [...] NKECHI ROBERTS | [address] | [place] [address] | | | LYDIA RANGEL | [address] | | | + + + + + ED INFORMATION EXCHANGE (11/06/2015 1:26 PM PDT) + + + + + + | Component | Value | Ref Range | Performed | Pathologist | | | | | At | Signature | + + + + + + | [facility] | [id number] | | [facility] | | | | [id number] | | MEDICAL | | | | [...] ---- 11/06/2015 | | | 13:25 [facility] | | | [phone]. Referral; Cellulitis 09/28/2015 15:39 HADLEY Akbar | [...] -Pain in left lower leg 09/13/2015 14:54 HADLEY Akbar | | | Hospital Emergency -Unspecified [...] | | | | | | -Other assisted (current) | | | drug therapy | | | -Allergy status | | | to penicillin ED VISIT COUNT (1 YR.) Visits Location | | | ------ --------- 1 [facility] | | | [place] 9 [facility] 10 | | | Total Note: Visits indicate total known visits. | | | | | | --- | | + + + + + + + + | Performing | Address | City/State/Zipcode | Phone Number | | Organization | | | | + + + + + | [facility] | [address], | [place], [place] | [phone] | | [employer] | [address] | [address] | | + + + + + [...] 4:14 | | | | | dose, [facility] 11/08/15 at 1430 | | PM PDT [...] | | | oral, ONCE, 1 dose, [facility] 11/08/15 | | PM PDT | | [...] | | | | ONCE, 1 dose, [facility] 11/17/15 at 0915 | | AM PDT | | | | + +-------+ +--------+---+---+ +---+---+ | | | +---+---+ + +-------+ +--------+---+---+ | potassium chloride SR (K-DUR) | Given | 11/18/19 | 40 mEq | | | | tablet 40 mEq 40 mEq, oral, | | 16 6:03 | | | | | ONCE, 1 dose, [facility] 11/18/15 at 1745 | | PM PDT [...] | | | | ONCE, 1 dose, [facility] 11/12/15 at 1115 | | AM PDT [...]
--- OUTSIDE RECORDS SUMMARY | ~2019-05-10 | XMS | Encounter Summary ---
Demographics + + + | Address | [address] | | | [place] [address] | + + + | Home Phone [...] [place], [place] | | | | | [address] | | + + + + + | Ellie Vang | ECON | Unknown | | + + + + + Care Team Providers + +------+ + | Care Greeter Name | Role | Phone | + +------+ + | Fadi Goodrich DO | PCP | | + +------+ + Encounter Details +--------+ + + + + | Date | Type | Department | Care Team | Description | +--------+ + + + + | 06/07/ | Hospital | Radiology/Imaging | Ronna Clarke, | | | 2018 | Encounter | Lab at [facility] [address] | [facility] [address] | | | | | [address] [place] Mailcode: | [place], [place] | | | | | [facility] | [address] | | | | | [facility], | [phone] | | | | | [address] | | | | | | Floor [place], [place] | | | | | | [address] | | | | | | [phone] | | | +--------+ + + + [...] | | 0 | | | | [id number] | mouth two times | | | [...] [place] | | | | | | [place], [place] | | | | | | [address] | | | | | | [phone] | | | | | | | | +--------+ + + + + | 06/27/ | Telephone-S | Pre-operative | | | | 2019 | cheduled | Medicine | | | +--------+ + + + + | 06/30/ | Office | Cardiology | [facility], | | | 2019 | Visit | | [address] | | | | | | [place], [place] | | | | | | [address] | | | | | | [phone] | | | | | | | [...] + + + | EXAM: Esophagram with backshoe person radiograph HISTORY: RYGB 03/01/2018, | [facility] | | vomiting/pain ever since COMPARISON: 04/27/2018 CT TECHNIQUE: | RADIOLOGY VOICE | | [employer] radiograph was performed. Single contrast exam of the esophagus, | RECOGNITION 2 | | gastric pouch, and gastrojejunostomy in upright positioning. | | | Radiation dose reduction technique was maximized where appropriate | | | using pulsed fluoroscopy and fluoro-store images. Fluoro Time 57 | | | second(s) FINDINGS: [employer] shows stone in the upper pole of [...] AM PST EXAM: Esophagram | | with backshoe person radiograph HISTORY: RYGB 03/01/2018, vomiting/pain ever since COMPARISON: | | 04/27/2018 CT TECHNIQUE: [employer] radiograph was performed. Single contrast exam of the | | esophagus, gastric pouch, and gastrojejunostomy in upright positioning. Radiation dose | | reduction technique was maximized where appropriate using pulsed fluoroscopy and | | fluoro-store images. Fluoro Time 57 second(s) FINDINGS:[employer] shows stone in the upper | | [...]
--- OUTSIDE RECORDS SUMMARY | ~2019-05-10 | XMS | Encounter Summary ---
Demographics + + + | Address | [address] | | | [place] [address] | + + + | Home Phone [...] [place], [place] | | | | | [address] | | + + + + + | Ellie Vang | ECON | Unknown | | + + + + + Care Team Providers + +------+ + | Care Team Foreman Name | Role | Phone | + [...] | HA Roldan | | | with HVAC RESIDENTIAL SERVICE TECHNICIAN | | hypertension | [address] | | | | | Right | [address] | [address] [place] | | | | | heart | [place], [place] | [place], | | | | | failure | [address] | [place] | | | | | ([facility]) Type | Phone: | [address] | | | | | 2 diabetes | [phone] | | | | | | mellitus | Fax: | | | | | | without | [phone] | | | | | | complication | | | | | | | , with | | | | | | | long-term | | | | | | | current use | | | | | | | of insulin | | | | | | | ([facility]) | | | +--------+ + + + + + Encounter Details +--------+---------+ + + + | Date | Type | Department | Care Team | Description | +--------+---------+ + + + | 02/02/ | Office | Digestive Health | [address] | Morbid obesity with | | 2017 | Visit | Center at [facility] [address] | [address] | BMI of 70 and over, | | | | [address] | Lesly Gutiérrez [place], | adult ([facility]) (Primary | | | | Mailcode: Center | [place] [address] | Dx); Type 2 | | | | for Health and |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 | | | | Healing, [address] | | without | | | | [place], [place] | | complication, with | | | | [address] | | long-term current | | | | [phone] | | use of insulin | | | | | | ([facility]); Chronic | | | | | | diastolic heart | | | | | | failure ([facility]) | +--------+---------+ + + + Social [...] of Visit: 10:03 to 10:30 (27 minutes wrjt-ia-jezb with patient) (1 hour ap point not [...] eat like she should, tries to eat clerk of superior court things and this does not help. Food [...] rhinitis Anemia Anxiety Bipolar disorder ([facility]) Chronic wound infection of abdomen from 2010 Cough Depression Diverticulitis of colon Dizziness Glaucoma Heart burn Hemorrhoids Hernia of abdominal wall Incisional hernia, incarcerated 2012 Insomnia Irregular periods Kidney stone Leaking of urine Leg sore Lymphedema Morbid obesity with body mass index of 70 and over in adult ([facility]) Myalgia and myositis Nausea Neck pain Numbness Osteoarthritis of knee Palpitations Pneumonia Shortness of breath Staphylococcal infection Stroke ([facility]) TIA (transient ischemic attack) due to [...] post-surgery diet progression. 4. Call or send [employer] message to dietitian with any questions. Contact information was provided. Follow up with dietitian prior to surgery (take 2 Weight management classes as part of 6 mo [facility] supervised diet). Yuli Childs RD, [facility], [facility] Bariatrics [phone] documented in this enco unter Plan of Treatment +--------+ + + + + | Date | Type | Specialty | Care Team | Description | +--------+ + + + + | 05/13/ | Office | Plastic Surgery | Archie Ybarra MD | | | 2018 | Visit | | [address] | | | | | | [place] | | | | | | [address] | | | | | | [phone] | | | | | | | [...] | | | | | [address] [place], [place] | | | | | | [address] | | | | | | [phone] | | | | | | | [...] | [place] MNT RE-ASSESSMNT | Routin | 02/02/2017 | Morbid obesity | | | X15MIN | e | 12:04 PM | with BMI of 70 and | | | | | PDT | over, adult ([facility]) | | | | | | Type 2 diabetes | | | | | | mellitus without | | | | | | complication, with | | | | | | long-term current | | | | | | use of insulin ([facility]) | | | | | | Chronic diastolic | | | | | | heart failure ([facility]) | | + +--------+ + + [...]
--- OUTSIDE RECORDS SUMMARY | ~2019-05-10 | XMS | Encounter Summary ---
Demographics + + + | Address | [address] | | | [place] [address] | + + + | Home Phone [...] + | Katalina Padilla | ECON | [address] | | | | | [place], [place] | | | | | [address] | | + + + + + | Ellie Vang | ECON | Unknown | | + + + + + Care Team Providers + +------+ + | Care Stratigraphy Teacher Name | Role | Phone | [...] Visit | Medicine Clinic at | J, GROUP PRESIDENT | (Primary Dx); | | | | [facility] | | Dysphagia, | | | | [address] | | unspecified type; | | | | Mail Code: OC8PM | | Hypertension, | | | | Center for [facility] | | unspecified type; | | | | and Healing, | | Hyperlipidemia, | | | | Building [address] | | unspecified | | | | [place], [place] | | hyperlipidemia type; | | | | [address] | | Diastolic | | | | [phone] | | congestive heart | | | [...] | | Endotracheal Tube; 7; Oral; | SKI INSTRUCTOR | SKI INSTRUCTOR | | | Cuffed; 06/23/18; 1542 | [...] encounter Patient Instructions Patient Instructions Tiara Mckeon, GROUP PRESIDENT - 06/16/2018 3:15 PM [facility] PREOPERATIVE INSTRUCTIONS Please consider having an [...] check-in location: Admitting - [facility], ninth floor [facility] Surgery Check in Time: The Preoperative [...] it is after office hours, call the [facility] coal hauler operator at [phone] and ask them to page him or [...] weight loss and diuretic tx, follows with supervisor pleating Hypothyroidism stabilized on hormone replacement Type 2 [...] renal failure no electrolyte abnormalities no dialysis Urology/Bulb Brander: Urologic Conditions: nephrolithiasis Endo: Diabetes: type 2 [...] sublingual Place under tongue once daily. CALCIUM CRB&GBH-A1-OMQ96-GENIS ORAL Take 2 tablets by mouth two [...] Dr. Andie Brian Incisional hernia repair 03/01/2015 [facility]/ Dr. Cantu. Primary fascial closure and scar excision Lap gastric byp, and nilesh-en-y gastroenterostomy w/ nilesh limb 150 cm or less 8 [facility] Family history reviewed / updated [...] weight loss and diuretic tx, follows with supervisor pleating. Appears comp ensated today. Hypothyroidism stabilized on hormone replacement. Take on DOS as usual Type 2 diabetes, well controlled with A1c 6.1 Thank you for the opportunity to contribute to this patient's care. HILDA Lagos [facility] 4TH FLOOR [address] [facility] [address] I advised the patient regarding [...] [address] | | | | | | [place], [place] | | | | | | [address] | | | | | | [phone] | | | | | | | [...] [place] | | | | | | [address] | | | | | | [phone] | | | | | | | [...]
--- OUTSIDE RECORDS SUMMARY | ~2019-05-10 | XMS | Encounter Summary ---
Demographics + + + | Address | [address] | | | [place] [address] | + + + | Home Phone [...] + | Katalina Padilla | ECON | [address] | | | | | [place], [place] | | | | | [address] | | + + + + + | Ellie Vang | ECON | Unknown | | + + + + + Care Team Providers + +------+ + | Care Credit Controller Name | Role | Phone | [...] | HA Roldan | | | with CHIEF SECURITY AND SAFETY OFFICER | | hypertension | [address] | [address] | | | | | Right | [address] | [address] [place] | | | | | heart | [place], [place] | [place], | | | | | failure | [address] | [place] | | | | | ([facility]) Type | Phone: | [address] | | | | | 2 diabetes | [phone] | | | | | | mellitus | Fax: | | | | | | without | [phone] | | | | | | complication | | | | | | | , with | | | | | | | long-term | | | | | | | current use | | | | | | | of insulin | | | | | | | ([facility]) | | | +--------+ + + + [...] | | | [address] | [address] | (Primary Dx); | | | | Mailcode: Center | [place], [place] | 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[facility] and | [address] | with insulin therapy | | | | [address] | | ([facility]) | | | | [place], [place] | | | | | | [address] | | | | | | [phone] | | | +--------+---------+ + + + [...] Follow-Up Patient referred by: Randell Franks MD [address] [place] [address] Documented time of visit: 10:33 to 10:55 (22 minutes bpdc-sx-urfk with patient) Surgery: Gastric Bypass Date of [...] tomato), cream of wheat occ, cottage cheese, british yogurt-light and fit, protein bar from [email or web address]. Unable to keep protei n shakes down. Fluid choices: water-4-5 bottles per day Supplementation: Flinstones, iron, vitamin D, vitamin C, Citracal supplement x 2 in the mor eusebio and 2 at night, magnesium, potassium, G02-yffrgzug today Assessment: Vomiting likely due to volume [...] multivitamin & mineral (with iron) supplement, 2/day -2079-0119 mg calcium citrate with vitamin D/day (take in divided doses, not within 2 hour s of multivitamin or iron supplement) -500 mcg/day sublingual B12 supplement (or monthly injections) Continued to reinforce importance of mindful eating. Continue to increase physical activity. Follow up in [address],LD Pager# [phone] Phone: [phone] documented in this e ncounter Plan of Treatment +--------+ + + + + | Date | Type | Specialty | Care Team | Description | +--------+ + + + + | 05/13/ | Office | Plastic Surgery | Archie Ybarra MD | | | 2019 | Visit | | [address] | | | | | | [place], [place] | | | | | | [address] | | | | | | [phone] | | | | | | | [...] | | | | | [address] [place], [place] | | | | | | [address] | | | | | | [phone] | | | | | | | [...] | + +--------+ + + + | [place] MNT RE-ASSESSMNT | Routin | 04/01/2018 | [...]
--- OUTSIDE RECORDS SUMMARY | ~2019-05-10 | XMS | Encounter Summary ---
Demographics + + + | Address | [address] | | | [place] [address] | + + + | Home Phone [...] [place], [place] | | | | | [address] | | + + + + + | Ellie Vang | ECON | Unknown | | + + + + + Care Team Providers + +------+ + | Care Wordpress Developer Name | Role | Phone | [...] | | | [address] | [place], [place] | | | | | [address] [facility] | [address] | | | | | Rd Mailcode: UHN83 | [phone] | | | | | Francesco Peres | | | | | | [address] [place], [place] | | | | | | [address] | | | | | | [phone] | | | +--------+ + + + [...] [address] | | | | | | [place], [place] | | | | | | [address] | | | | | | [phone] | | | | | | | [...] | | | | | [address] [place], [place] | | | | | | [address] | | | | | | [phone] | | | | | | | | +--------+ + + + + | 07/08/ | Procedure | Surgery | | | | 2019 | Pass | | | | +--------+ + + + + documented as of this encounter Visit Diagnoses Not on filedocumented in this encounter"
--- OUTSIDE RECORDS SUMMARY | ~2019-05-10 | XMS | Encounter Summary ---
Demographics + + + | Address | [address] | | | [place] [address] | + + + | Home Phone [...] + | Katalnia Padilla | ECON | [address] | | | | | [place], [place] | | | | | [address] | | + + + + + | Ellie Vang | ECON | Unknown | | + + + + + Care Team Providers + +------+ + | Care Custodian Supervisor Name | Role | Phone | [...] | | | | | | | [facility] for | | | | | | | Health and | | | | | | | Healing, | | | | | | | [address] | | | | | | | [place], [place] | | | | | | | [address] | | | | | | | Phone: | | | | | | | [phone] | | | | | | | Fax: | | | | | | | [phone] | +--------+--------+ + + + + Encounter [...] | | | | Mailcode: Center | [place], [place] | ([facility]) | | | | for Health and | [address] | | | | | [facility] [address] | | | | | | [place], [place] | | | | | | [address] | | | | | | [phone] | | | +--------+---------+ + + + [...] of Visit: 10:06 to 10:32 (26 minutes pwwk-dl-vzrn with patient & friend) SUBJECTIVE: Is surprised she has gained weight; is disappointed. Still following her usual meal plan. H as d/c'd diet soda. Still struggling w/ eating out of boredom - choosing 100 kcal snacks but having ~3 of them at a time. Not as much emotional eating lately. Has been keeping food log s (on paper) - avg 0616-1180 kcal/d. Trying to increase activity. B: Atkins [...] provided. Olga Lidia Montanez RD, [place] Pager [phone] documented in this en counter Plan of Treatment +--------+ + + + + | Date | Type | Specialty | Care Team | Description | +--------+ + + + + | 05/13/ | Office | Plastic Surgery | Archie Ybarra MD | | | 2019 | Visit | | [address] | | | | | | [place], [place] | | | | | | [address] | | | | | | [phone] | | | | | | | [...] | | | | | [address] [place], [place] | | | | | | [address] | | | | | | [phone] | | | | | | | [...] | [place] MNT RE-ASSESSMNT | Routin | 06/16/2013 | [...]
--- OUTSIDE RECORDS SUMMARY | ~2019-05-10 | XMS | Encounter Summary ---
Demographics + + + | Address | [address] | | | [place] [address] | + + + | Home Phone [...] [place], [place] | | | | | [address] | | + + + + + | Ellie Vang | ECON | Unknown | | + + + + + Care Team Providers + +------+ + | Care Executive Candidate Developer Name | Role | Phone | [...] | Pain | Diagnoses | [place], | Assembler [facility] | | | | Management | Morbid | Shereen Murcia ACNP | [facility] [address] | | | | | obesity with | [address] | [address] | | | | | BMI of [address] | [address] | Mailcode: | | | | | and over, | [place], [place] | [address] | | | | | adult ([facility]) | [address] | for Health | | | | | Procedures | Phone: | and Healing, | | | | | CONSULT TO | [phone] | Building [address], | | | | | PAIN | Fax: | 15th Floor | | | | | MANAGEMENT | [phone] | [place], [place] | | | | | [place] | | [id number] | | | | | PSYCHIATRIC | | Phone: | | | | | DIAGNOSTIC | | [phone] | | | | | EVAL, NO MED | | Fax: | | | | | SVCS ID | | [phone] | | | | | PSYCH TSTNG [...] | [address] Floor [address] | PhD [address] [facility] | ([facility]); Bipolar | | | | [address] Mailcode: | [address] | affective disorder, | | | | [facility] Center for | [place], [place] | remission status | | | | Health and Healing, | [address] | unspecified ([facility]); | | | | | [phone] | BMI 60.0-69.9, adult | | | | Floor [place], [place] | | ([facility]); Anxiety | | | | [address] | | | | | | [phone] | | | +--------+---------+ + + + [...] Name: Elzbieta Cristina : 1975 Medical Record: [id number] Age: 42 y.o. Weight today, per patient report: 305 lbs Weight on 09/11/17: 389, BMI 73.54 Identifying Information: Elzbieta Cristina is a 42 y.o. female who lives with her mother in [place], [place]. She was referred for psychological evaluation [...] of cereal with skim milk and a citizen of [place] yogurt L: white bread and cheese and [...] laundry. For enjoym ent the patient watches [employer] with her girlfriend. She is socially active [...] Social History: Elzbieta Cristina was born in [place] and lived with her mother and sister. [...] time I spent was approximately 60 minutes szdx-oq-sxes with the patient and approxima tely 2 hours of hyt-khfi-bk-face testing, interpreting and synthesizing results. Leslie Mistry, PhD Clinical Psychologist [facility] [address] [facility], 15th [place] [address] [phone] signed by Leslie Mistry, PhD at 10/08/2017 12:26 PM PDTdocume nted in this encounter Plan of Treatment +--------+ + + + + | Date | Type | Specialty | Care Team | Description | +--------+ + + + + | 05/13/ | Office | Plastic Surgery | Archie Ybarra MD | | | 2018 | Visit | | [address] | | | | | | [place], [place] | | | | | | [address] | | | | | | [phone] | | | | | | | [...] | | | | | [address] [place], [place] | | | | | | [address] | | | | | | [phone] | | | | | | | [...] | + + | BMI 60.0-69.9, adult ([facility]) Body Mass Index 60.0-69.9, adult | + + | Anxiety Anxiety state, unspecified | + + documented in this encounter
--- OUTSIDE RECORDS SUMMARY | ~2019-05-10 | XMS | Encounter Summary ---
Demographics + + + | Address | [address] | | | [place] [address] | + + + | Home Phone [...] + | Katalina Padilla | ECON | [address] | | | | | [place], [place] | | | | | [address] | | + + + + + | Ellie Vang | ECON | Unknown | | + + + + + Care Team Providers + +------+ + | Care Glue Reel Operator Name | Role | Phone | [...] [address] | | | | | [place], [place] | [address] | | | [birth year]/ | | [address] | [place], [place] | | | 2014 | | [phone] | [address] | | | | | | [phone] | | | | | | | [...] port site who was transferre d to [facility] for concern of an incarcerated hernia. On [...] mouth once daily. , Historical Med CALCIUM CRB&UZX-N1-WMK25-GENIS ORAL Take 1 tablet by mouth two [...] 10:40 AM Randell Franks Cardiology Preventive at [facility] [phone] Cardiology 04/09/2015 1:00 PM Egs Ppv Tra Trauma Emergency General Surgery at [facility] [phone] TRA[facility] Outstanding labs/studies: None Discharging Physician: GABO LANGSTON MD Attending Physician: Dr. Cantu PCP: Fadi Goodrich DO Signed: GABO LANGSTON MD Pager #[phone] Surgical Clinical Unit Educator [facility] Associated attestation - Tye Carrillo DO - 03/12/2015 9:12 AM PDTAttending: I discussed this patient with the resident and agree with the assessment and plan as outlin ed in this note and participated in the planning of care. yTe Carrillo DO, MBA, FACS Division of Trauma, Critical Care & Acute Care Surgery [facility] [phone] documented in this encounter Medications at Time of Discharge + + + +---------+--------+ + | Medication | Sig | Dispensed | Refills | Start | End Date | | | | | | Date | | + + + +---------+--------+ + | CALCIUM | Take 2 tablets by | | 0 | | | | CRB&HRR-Y4-OEA91-GEN | mouth two times | | | [...] differ ent from the original. [facility] [place] DEPARTMENT OF SURGERY EMERGENCY GENERAL SURGERY [...] obesity with known ventral hernias transferred to [facility] for surgical managem ent of ventral hernia, now s/p repair. Post surgical pain: -patient ready for d/c, discussed f/u. Patient lives far away and has other appointments at [facility]. Will attempt to coordinate appointments. Discharge Plan: D/c today RAGADALIDN V SIDDHARTHAN, MD Pager #[phone] Surgical Clinical Unit Educator [facility] Salomón William Md - 03/02/2015 1:12 PM PDT [facility] DEPARTMENT OF SURGERY EMERGENCY GENERAL SURGERY Division of Trauma and Critical Care Attending Physician: Shahid Cantu MD Progress Note Note Date: 03/02/2015 Admission Date: 2015 DYLAN ROMERO, Hospital Day #2 40 F PMH morbid obesity (BMI 71 today), DM2, depression, GERD, h/o stroke at age 18, and kn own ventral hernias transferred to [facility] for surgical treatment of suspected incarcerated yuriy [...] obesity with known ventral hernias transferred to [facility] for surgical managem ent of ventral hernia, [...] will be robel ing her home to [employer], [place]. CALVIN ROMERO MD PGY-1 Anesthesiology Pager: [phone] [facility] A [address] [address] Karthik Oneill MD - 03/02/2015 8:26 AM [id number] Calvin William Md - 03/01/2015 5:34 PM PDT Brief Post Operative Note: 40 F PMH morbid obesity (BMI 71 today), DM2, depression, GERD, h/o stroke at age 18, and kn own ventral hernias transferred to [facility] for surgical treatment of incarcerated ventral herni [...] control CALVIN ROMERO MD PGY-1 Anesthesiology Pager: [phone] signed by Calvin Romero Md at 03/01/2015 5:41 PM PDTdocumente d in this encounter Plan of Treatment +--------+ + + + + | Date | Type | Specialty | Care Team | Description | +--------+ + + + + | 05/13/ | Office | Plastic Surgery | Archie Ybarra MD | | | 2019 | Visit | | [address] | | | | | | [place], [place] | | | | | | [address] | | | | | | [phone] | | | | | | | | +--------+ + + + + | 06/27/ | Telephone-S | Pre-operative | | | | 2019 | cheduled | Medicine | | | +--------+ + + + + | 06/30/ | Office | Cardiology | Randell Franks, | | | 2019 | Visit | | [address] | | | | | | [place], [place] | | | | | | [address] | | | | | | [phone] | | | | | | | [...] | | Attending Surgeon: Shahid Cantu MD Lead Software Architect(s): Howie Angeles MD, R5 | | Karthik [...] 03/02/2015 08:25:39DT: 03/02/2015 09:15:57Job #: | | [id number] | | | |Dr. Chris Cantu was present and scrubbed for the entirety of the case. | | | | | | | |Karthik Gonzalez MD | | | |Pursuant to federal Medicare and Medicaid regulations I was present for the entire procedur e. | | | | | | | |Shahid Cantu MD | |Grapple Operator | |Trauma, Critical Care & Acute Care Surgery | | | | | | | |Shahid Cantu MD | |TBK/MODL | | | | | | /[id number] | + ---+ CAPILLARY BLOOD GLUCOSE (NO [...] AMES | [address] | [place], [place] | | | JUSTINE DAWN OF JAKY | [address] | [address] | | | TESTS | | | [...] [facility] | [address] | [place], [place] | | | [facility] POINT OF CARE | [address] | [address] | | | TESTS | | | [...] [place] | [address] | [place], [place] | | | JUSTINE DAWN OF CARE | [facility] | [address] | | | TESTS | | | [...] AMES | [address] | [place], [place] | | | JUSTINE DAWN OF JAKY | [address] | [address] | | | TESTS | | | [...] | [facility] | [address] | [place], [place] | | | JUSTINE DAWN OF CARE | [address] | [address] | | | TESTS | | | [...] KWAKU | [address] | [place], [place] | | | [place] [facility] | [address] | [address] | | | TESTS | | | [...] [facility] | [address] | [place] [address] | | | SERVICES, CORE | [address]ARK [...] | | | LABORATORY | | | [place] | | | SERVICES, | | | [...] | [facility] | [address] | [place] [address] | | | SERVICES, CORE | CLARENCE [...] [place] | [address] | [place], [place] | | | [facility] POINT OF CARE | [address] | [address] | | | TESTS | | | [...] [facility] | [address] | [place], [place] | | | [place] POINT OF CARE | [address] | [address] | | | TESTS | | | [...] AMES | [address] | [place], [place] | | | [place] POINT OF CARE | [address] | [address] | | | TESTS | | | [...] [place]QUAM | [address] | [place], [place] | | | [facility] POINT OF CARE | [address] | [address] | | | TESTS | | | [...] - [place] | [address] | [place], [place] | | | [facility] POINT OF CARE | [address] | [address] | | | TESTS | | | [...] [facility] | [address] | [place] [address] | | | LYDIA RANGEL | CLARENCE [...] NKECHI AMES | [address] | [place], [place] | | | JUSTINE [facility] | [address] | [address] | | | TESTS | | | [...] | | | | | | at 1929, mild pain | | | | | [...] 8:32 | | | | | on Jasmyne 03/01/15 at 0900, Until | [...] on Jasmyne 03/01/15 at 0900, | | | | | [...] | | PRN, 4 doses, Starting Jasmyne 03/01/15 | | | | | | | at 1056, Until Jasmyne 8 at | | | | | | [...] 1 dose, | | | Starting Jasmyne 8 at 1215, | | | Until Jasmyne 8/01/08 at 1216 | | + +---+ | [...] PDT | | | | | Starting Thu03/01/15 at 1056, | | | | | | | Until Thu03/01/15 at 1436, | | | | | [...] | | | | | 1417, Until Thu03/03/15 at 2045, | | | | | [...] | | | | | 1 dose, 03/02/15 at 1100 | | AM PDT | [...] First dose on [facility] 03/01/15 at 0900, | | AM PDT [...] | | | | | dose on [facility] 03/01/15 at 0900, Until | | AM [...] | | | | Starting 03/02/15 at 1018, | | | | | | | Until 03/02/15 at 1417, severe | | | | [...] | | | | Until 03/03/15 at 2045, severe | | | | | | [...] | | | | | NEEDED, Starting 02/28/15 at | | | | | | [...] | | | 0017, Until 03/03/15 at 2045, | | | | | | | insomnia | | | | | | + +-------+ +--------+---+---+ +---+---+ | | | +---+---+ documented in this encounter
--- OUTSIDE RECORDS SUMMARY | ~2019-05-10 | XMS | Encounter Summary ---
Demographics + + + | Address | [address] | | | [place] [address] | + + + | Home Phone [...] + | Katalina Padilla | ECON | [address] | | | | | [place], [place] | | | | | [address] | | + + + + + | Ellie Vang | ECON | Unknown | | + + + + + Care Team Providers + +------+ + | Care Cloth Stretcher Name | Role | Phone | + +------+ + | Fadi Goodrich DO | PCP | | + +------+ + Encounter Details +--------+ + + + + | Date | Type | Department | Care Team | Description | +--------+ + + + + | 06/07/ | Hospital | Radiology/Imaging | Ronna Clarke, | | | 2018 | Encounter | Lab at [facility] [address] | ACNP [address] | | | | | [address] [place] Mailcode: | [place], [place] | | | | | [facility] | [address] | | | | | Health and Healing, | [phone] | | | | | [address] | | | | | | Floor [place], [place] | | | | | | [address] | | | | | | [phone] | | | +--------+ + + + [...] | | 0 | | | | CRB&RSP-G8-AAY98-GEN | mouth two times | | | [...] | | | | | | [place], [place] | | | | | | [address] | | | | | | [phone] | | | | | | | | +--------+ + + + + | 06/27/ | Telephone-S | Pre-operative | | | | 2019 | cheduled | Medicine | | | +--------+ + + + + | 06/30/ | Office | Cardiology | TinyRandell, | | | 2019 | Visit | | [address] | | | | | | [place], [place] | | | | | | [address] | | | | | | [phone] | | | | | | | [...] + + + | EXAM: Esophagram with shuttle buggy operator radiograph HISTORY: RYGB 03/01/2018, | [facility] | | vomiting/pain ever since COMPARISON: 04/27/2018 CT TECHNIQUE: | RADIOLOGY VOICE | | Rougher Machine Operator radiograph was performed. Single contrast exam of the esophagus, | RECOGNITION 2 | | gastric pouch, and gastrojejunostomy in upright positioning. | | | Radiation dose reduction technique was maximized where appropriate | | | using pulsed fluoroscopy and fluoro-store images. Fluoro Time 57 | | | second(s) FINDINGS: Rougher Machine Operator shows stone in the upper [...] AM PST EXAM: Esophagram | | with shuttle buggy operator radiograph HISTORY: RYGB 03/01/2018, vomiting/pain ever since COMPARISON: | | 04/27/2018 CT TECHNIQUE: Rougher Machine Operator radiograph was performed. Single contrast exam of the | | esophagus, gastric pouch, and gastrojejunostomy in upright positioning. Radiation dose | | reduction technique was maximized where appropriate using pulsed fluoroscopy and | | fluoro-store images. Fluoro Time 57 second(s) FINDINGS:Rougher Machine Operator shows stone in the upper [...]
--- OUTSIDE RECORDS SUMMARY | ~2019-05-10 | XMS | Encounter Summary ---
Demographics + + + | Address | [address] | | | [place] [address] | + + + | Home Phone [...] + | Katalina Padilla | ECON | [address] | | | | | [place], [place] | | | | | [address] | | + + + + + | Ellie Vang | ECON | Unknown | | + + + + + Care Team Providers + +------+ + | Care Afternoon Babysitter Name | Role | Phone | + +------+ + | Fadi Goodrich DO | PCP | | + +------+ + Encounter Details +--------+ + + + + | Date | Type | Department | Care Team | Description | +--------+ + + + + | 02/09/ | Abstract | Digestive Health | Clinic, Surgery | | | 2016 | | [address] [address] [address] | | | | | | [address] | | | | | | Mailcode: [place] | | | | | | [facility] | | | | | | [facility] | | | | | | [place], [place] | | | | | | [address] | | | | | | [phone] | | | +--------+ + + + [...] | | | | | [place], [place] | | | | | | [address] | | | | | | [phone] | | | | | | | | +--------+ + + + + | 06/27/ | Telephone-S | Pre-operative | | | | 2019 | cheduled | Medicine | | | +--------+ + + + + | 06/30/ | Office | Cardiology | Randell Franks, | | | 2018 | Visit | | [address] | | | | | | [place], [place] | | | | | | [address] | | | | | | [phone] | | | | | | | | +--------+ + + + + | 07/08/ | Procedure | Surgery | | | | 2018 | Pass | | | | +--------+ + + + + documented as of this encounter Visit Diagnoses Not on filedocumented in this encounter"
--- OUTSIDE RECORDS SUMMARY | ~2019-05-10 | XMS | Encounter Summary ---
Demographics + + + | Address | [address] | | | [place] [address] | + + + | Home Phone [...] [place], [place] | | | | | [address] | | + + + + + | Ellie Vang | ECON | Unknown | | + + + + + Care Team Providers + +------+ + | Care Engine Cleaner Name | Role | Phone | [...] | | | 2017 | Event | [facility] | MD Jodie,PhD [address] | | | | | Admitting Desk | [address] | | | | | Located on the 9 | [facility] [place] | | | | | floor [address] | [address] | | | | | [address] | [phone] | | | | | [place], [place] | | | | | | [address] | Jason Balbuena | | | | | | MD Twin [address] | | | | | | [address] | | | | | | [place], [place] | | | | | | [address] | | | | | | [phone] | | | | | | | [...] [address] | | | | | | [place], [place] | | | | | | [address] | | | | | | [phone] | | | | | | | [...] | | | | | [place], [place] | | | | | | [address] | | | | | | [phone] | | | | | | | [...] + +--------+ + + + | CRISTIN VASQUEZT | Routin | 03/01/2018 | | Results for this | | | e | 9:42 AM | | procedure are in the | | | | PDT | | results section. | + +--------+ + + + documented in this encounter Results CRISTIN CASH (03/01/2018 9:42 AM PDT) + + + [...] | | INTRAPROCEDURE PRN, Starting Thu | 9:15 | | | | | [...] | | | 03/01/18 at 0918, Until 8/6/18 | | PM PDT | | | [...] | | | | at 0615, Until 03/01/18 at 1410 | iology | | | [...] | | | 03/01/18 at 1206, Until 8/6/18 | | PM PDT | | | | | at 1209 | | | | | | + +-------+ +--------+---+---+ +---+---+ | | | +---+---+ documented in this encounter"
--- OUTSIDE RECORDS SUMMARY | ~2019-05-10 | XMS | Encounter Summary ---
Demographics + + + | Address | [address] | | | [place] [address] | + + + | Home Phone [...] Author | [facility] | | | and [place] | + + + | Organization | [facility] | | | and Jeffana [...] Team Providers + +------+ + | Care Demolitionist Name | Role | Phone | + +------+ + | Kenyatta Cardenas MD | PCP | | + +------+ + Encounter Details +--------+ + + + + | Date | Type | Department | Care Team | Description | +--------+ + + + + | 02/17/ | Orders Only | [facility] | Provider, | Pure | | 2018 | | SYSTEM GENERIC OP | MD [address] | hyperglyceridemia; | | | | CONVERSION [address] | [address] | Hypokalemia; | | | | [address] [place], [place] | [place] [address] | Dehydration; | | | | [address] | | Hyperuricemia | | | | [phone] | | without signs of | | [...] as of this encounter Plan of Treatment + +--------+ + + | Name | Priori | Associated Diagnoses | Order Schedule | | | ty | | | + +--------+ + + | Comprehensive Metabolic Panel | Routin | Pure | Expected: | | | e | hyperglyceridemia | 04/26/2018, Expires: | | | | Hypokalemia | 04/26/2019 | | | | Dehydration | | + +--------+ + + | Lipid Panel | Routin | Pure | Expected: | | | e | hyperglyceridemia | 04/26/2018, Expires: | | | | | 04/26/2019 | + +--------+ + + | Renal Function Panel | Routin | Hypokalemia | Expected: | | | e | Hyperuricemia | 12/06/2018, Expires: | | | | without signs of | 12/02/2019 | | | | inflammatory | | | | | arthritis and | | | | | tophaceous disease | | | | | Essential (primary) | | | | | hypertension | | + +--------+ + + | Magnesium | Routin | Hypokalemia | Expected: | | | e | Hyperuricemia | 12/06/2018, Expires: | | | | without signs of | 12/02/2019 | | | | inflammatory | | | | | arthritis and | | | | | tophaceous disease | | | | | Essential (primary) | | | | | hypertension | | + +--------+ + + | CBC with Differential | Routin | Hypokalemia | Expected: | | | e | Hyperuricemia | 12/06/2018, Expires: | | | | without signs of | 12/02/2019 | | | | inflammatory | | | | | arthritis and | | | | | tophaceous disease | | | | | Essential (primary) | | | | | hypertension | | + +--------+ + + | Parathyroid Hormone, Intact | Routin | Hypokalemia | Expected: | | | e | Hyperuricemia | 12/06/2018, Expires: | | | | without signs of | 12/02/2019 | | | | inflammatory | | | | | arthritis and | | | | | tophaceous disease | | | | | Essential (primary) | | | | | hypertension | | + +--------+ + + | Uric Acid | Routin | Hypokalemia | Expected: | | | e | Hyperuricemia | 12/06/2018, Expires: | | | | without signs of | 12/02/2019 | | | | inflammatory | | | | | arthritis and | | | | | tophaceous disease | | | | | Essential (primary) | | | | | hypertension | | + +--------+ + + | Protein/Creatinine Ratio, Urine | Routin | Hypokalemia | Expected: | | | e | Hyperuricemia | 12/06/2018, Expires: | | | | without signs of | 12/02/2019 | | | | inflammatory | | | | | arthritis and | | | | | tophaceous disease | | | | | Essential (primary) | | | | | hypertension | | + +--------+ + + documented [...]
--- OUTSIDE RECORDS SUMMARY | ~2019-05-10 | XMS | Encounter Summary ---
Demographics + + + | Address | [address] | | | [place] [address] | + + + | Home Phone [...] [place], [place] | | | | | [address] | | + + + + + | Ellie Vang | ECON | Unknown | | + + + + + Care Team Providers + +------+ + | Care Application Project Leader Name | Role | Phone | + +------+ + | Fadi Goodrich DO | PCP | | + +------+ + Encounter Details +--------+ + + + + | Date | Type | Department | Care Team | Description | +--------+ + + + + | 02/13/ | Abstract | Cardiology | Randell Franks, | | | 2015 | | Preventive at [facility] | MD [address] | | | | | [address] | Ave [place], [place] | | | | | Mailcode: CH9A | [address] | | | | | [facility] | [phone] | | | | | and Healing, | | | | | | [address] | | | | | | [place], [place] | | | | | | [address] | | | | | | [phone] | | | +--------+ + + + [...] [address] | | | | | | [place], [place] | | | | | | [address] | | | | | | [phone] | | | | | | | [...] | | | | | [place], [place] | | | | | | [address] | | | | | | [phone] | | | | | | | | +--------+ + + + + | 07/08/ | Procedure | Surgery | | | | 2019 | Pass | | | | +--------+ + + + + documented as of this encounter Visit Diagnoses Not on filedocumented in this encounter"
--- OUTSIDE RECORDS SUMMARY | ~2019-05-10 | XMS | Encounter Summary ---
Demographics + + + | Address | [address] | | | [place] [address] | + + + | Home Phone [...] [place], [place] | | | | | [address] | | + + + + + | Ellie Vang | ECON | Unknown | | + + + + + Care Team Providers + +------+ + | Care Blue Line Hanger Name | Role | Phone | + +------+ + | Kenyatta Cardenas MD | PCP | | + +------+ + Encounter Details +--------+ + + + + | Date | Type | Department | Care Team | Description | +--------+ + + + + | 01/26/ | Abstract | Cardiology | Branden Gutiérrez MD | | | 2019 | | Preventive at [facility] | [address] | | | | | [address] | [place], [place] | | | | | Mailcode: CH9A | [address] | | | | | [facility] | [phone] | | | | | and Healing, | | | | | | [address] | | | | | | [place], [place] | | | | | | [address] | | | | | | [phone] | | | +--------+ + + + [...] | | 2019 | Visit | | [address] | | | | | | [place], [place] | | | | | | [address] | | | | | | [phone] | | | | | | | [...] | | | | | [place], [place] | | | | | | [address] | | | | | | [phone] | | | | | | | | +--------+ + + + + | 07/08/ | Procedure | Surgery | | | | 2018 | Pass | | | | +--------+ + + + + documented as of this encounter Visit Diagnoses Not on filedocumented in this encounter"
--- OUTSIDE RECORDS SUMMARY | ~2019-05-10 | XMS | Encounter Summary ---
Demographics + + + | Address | [address] | | | [place] [address] | + + + | Home Phone [...] [place], [place] | | | | | [address] | | + + + + + | Ellie Vang | ECON | Unknown | | + + + + + Care Team Providers + +------+ + | Care Stunner Name | Role | Phone | + [...] | | | [address] | [place], [place] | | | | | Mailcode: L223A | [address] | | | | | [facility] | [phone] | | | | | [address] [place], [place] | | | | | | [address] | | | | | | [phone] | | | +--------+---------+ + + + [...] Dr. Andie Brian Incisional hernia repair 02/2015 [facility]/ Dr. Cantu PHYSICAL EXAMINATION: BP 133/63 [...] GENERAL SURGERY AT [facility] [address] [facility] Mailcode: [address] [place] [address] documented in this encounter Plan of Treatment +--------+ + + + + | Date | Type | Specialty | Care Team | Description | +--------+ + + + + | 05/13/ | Office | Plastic Surgery | Archie Ybarra MD | | | 2018 | Visit | | [address] | | | | | | [place], [place] | | | | | | [address] | | | | | | [phone] | | | | | | | [...] | | | | | [place], [place] | | | | | | [address] | | | | | | [phone] | | | | | | | [...]
--- OUTSIDE RECORDS SUMMARY | ~2019-05-10 | XMS | Encounter Summary ---
Demographics + + + | Address | [address] | | | [place] [address] | + + + | Home Phone [...] [place], [place] | | | | | [address] | | + + + + + | Ellie Vang | ECON | Unknown | | + + + + + Care Team Providers + +------+ + | Care Second Steward Name | Role | Phone | + [...] Center at [facility] [address] | | (Primary Dx) | | | | [address] | | | | | | Mailcode: [place] | | | | | | [facility] and | | | | | | [facility] | | | | | | [place], [place] | | | | | | [address] | | | | | | [phone] | | | +--------+---------+ + + + [...] of Class: 1055 until 1155 (60 minutes hhzi-rl-aimr with patient) Teaching Methods: PowerPoint and verbal [...] a journal with fluid/protein d. Transportation 7. [facility]esti for Successful Weight Loss Surgery 8. Surgical [...] [address] | | | | | | [place], [place] | | | | | | [address] | | | | | | [phone] | | | | | | | [...] | | | | | [place], [place] | | | | | | [address] | | | | | | [phone] | | | | | | | [...]
--- OUTSIDE RECORDS SUMMARY | ~2019-05-10 | XMS | Encounter Summary ---
Demographics + + + | Address | [address] | | | [place] [address] | + + + | Home Phone [...] [place], [place] | | | | | [address] | | + + + + + | Ellie Vang | ECON | Unknown | | + + + + + Care Team Providers + +------+ + | Care Coordinate Measuring Machine Programmer Name | Role | Phone | [...] | | | | | | [address] [facility] | | | | | | [place], [place] | | | | | | [address] | | | | | | [phone] | | | +--------+ + + + [...] | | 2019 | Visit | | [address] | | | | | | [place], [place] | | | | | | [address] | | | | | | [phone] | | | | | | | [...] | | | | | [place], [place] | | | | | | [address] | | | | | | [phone] | | | | | | | | +--------+ + + + + | 07/08/ | Procedure | Surgery | | | | 2018 | Pass | | | | +--------+ + + + + documented as of this encounter Visit Diagnoses Not on filedocumented in this encounter"
--- OUTSIDE RECORDS SUMMARY | ~2019-05-10 | XMS | Encounter Summary ---
Demographics + + + | Address | [address] | | | [place] [address] | + + + | Home Phone [...] [place], [place] | | | | | [address] | | + + + + + | Ellie Vang | ECON | Unknown | | + + + + + Care Team Providers + +------+ + | Care Floor Runner Name | Role | Phone | + +------+ + PCP | Unavailable | + +------+ + Encounter Details +--------+ + + + + | Date | Type | Department | Care Team | Description | +--------+ + + + + | 05/13/ | Results | | Other, Faculty | | | 1992 | Only | | [phone] | | +--------+ + + + + [...] [address] | | | | | | [place], [place] | | | | | | [address] | | | | | | [phone] | | | | | | | | +--------+ + + + + | 06/27/ | Telephone-S | Pre-operative | | | | 2018 | cheduled | Medicine | | | +--------+ + + + + | 06/30/ | Office | Cardiology | Tiny Randell, | | | 2019 | Visit | | [address] | | | | | | [place], [place] | | | | | | [address] | | | | | | [phone] | | | | | | | [...] + +---------+ + + | [facility] DEPARTMENT OF | | | | | [...] | | | | | | | [id number] SCAN OF | | | | | [...] + +---------+ + + | [facility] DEPARTMENT OF | | | | | [...] | | | | | | | [id number] SCAN OF | | | | | [...]
--- OUTSIDE RECORDS SUMMARY | ~2019-05-10 | XMS | Encounter Summary ---
Demographics + + + | Address | [address] | | | [place] [address] | + + + | Home Phone [...] + | Katalina Padilla | ECON | [address] | | | | | [place], [place] | | | | | [address] | | + + + + + | Ellie Vang | ECON | Unknown | | + + + + + Care Team Providers + +------+ + | Care Chartered Financial Analyst Name | Role | Phone | [...] | | | | | | [facility] | | | | | | [place], [place] | | | | | | [address] | | | | | | [phone] | | | +--------+ + + + [...] [address] | | | | | | [place], [place] | | | | | | [address] | | | | | | [phone] | | | | | | | [...] [place] | | | | | | [address] | | | | | | [phone] | | | | | | | [...] | | | | navigated a #5.5 Greenlandic | | | | | | Ozzy [...] | | | | | | a#5.5 Green[place]ic sheath was | | | | | | secured into place. In | | | | | | a similar fashion, | | | | | | a#7.0 Greenlandic sheath was | | | | | [...] | | | | | The #7 Greenlandic Brite | | | | | | [...]
--- OUTSIDE RECORDS SUMMARY | ~2019-05-10 | XMS | Encounter Summary ---
Demographics + + + | Address | [address] | | | [place] [address] | + + + | Home Phone [...] [place], [place] | | | | | [address] | | + + + + + | Ellie Vang | ECON | Unknown | | + + + + + Care Team Providers + +------+ + | Care Eye Glass Frame Polisher Name | Role | Phone | [...] | | | | | | | [facility] | | | | | | | [address] | | | | | | | [facility]aling, | | | | | | | [address] | | | | | | | [place], [place] | | | | | | | [address] | | | | | | | Phone: | | | | | | | [phone] | | | | | | | Fax: | | | | | | | [phone] | +--------+--------+ + + + + Encounter [...] | | [address] | Ave [place], [place] | adult (HCC) (Primary | | | | Mailcode: Center | [address] | Dx); Vitamin D | | | | for Health and | | deficiency disease; | | | | Healing, [address] | | Intertriginous | | | | [place], [place] | | candidiasis; | | | | [address] | | Diabetes mellitus | | | [...] Psychological Evaluation: If your referral is at [facility], pain management will call irma riggs [...] the time. If your referral is at [facility], they will call y ou in the next week to schedule. She will arrange 8. Nephrology Consult: Please call [facility] ([phone]) and have them send you a urine specimen container. You will need to discuss your kidney stone risk with a nephrology provid er prior to proceeding with gastric bypass. If your referral is at [facility], they will call you in the [...] at the same time: betsy Feldman RN, [facility]- Nurse Practitioner for Bariatric Surgery [facility] | [address] | [place], [place] | [address] | Potential Contraindications to Bariatric Surgery Age [...] other providers does not guarantee that the [facility] Bariatric Surger y program will deem you a surgical candidate. documented in this encounter Progress Notes Shereen Pinto ACNP - 06/16/2013 1:28 PM PSTFormatting of this note might be different fro m the original. BARIATRIC INITIAL VISIT Provider: Shereen Pinto DNP, [facility], ASSOCIATE DIRECTOR DATA & ANALYTICS Referring Provider: Dr. Fadi Goodrich, [place] [phone] Reason for Requested Consultation: Initial evaluation for bariatric surgery. Elzbieta Cristina is interested in [place] y alfredo tomeka bypass. The pt is here With her sister. Following surgery her mother and sister will care for her, she will Stay in [place] after surgery so that she is close by. She lives in [place]. They have few stairs to get into [...] recently gained weight, she met with our final finisher forging dies today, she has been making poor food [...] none Use of Redux or Phen/fen: no Taoist or cultural reason you would refuse blood [...] as well , hypertension, hyperlipidemia. Denies CHF, GA, ischemic heart disease, DVT/PE, or pulmonary hypertension. [...] the therapy. 8. Nephrology Consult: Please call [facility] ([phone]) and have them send you a urine specimen container. You will need to discuss your kidney stone risk with a nephrology provid er prior to proceeding with gastric bypass. If your referral is at [facility], they will call you in the next week to schedule. You are at increased risk of renal stones after surgery, with your history of stone, we want to check of oxalate in your urine. You will need a referral to a egg grader If your level is elevated. 9. See [...] soon as possible Shereen Pinto DNP ACNP, ASSOCIATE DIRECTOR DATA & ANALYTICS Nurse Practitioner for Bariatric Surgery [facility] | [address] | [place], [place] | [address] | Potential Contraindications to Bariatric Surgery Age [...] other providers does not guarantee that the [facility] Bariatric Surger y program will deem [...] | | 2018 | Visit | | [address] | | | | | | [place], [place] | | | | | | [address] | | | | | | [phone] | | | | | | | [...] | | | | | [place], [place] | | | | | | [address] | | | | | | [phone] | | | | | | | [...] at | | | | | | [employer] | | | | | | developed and | | | | | | characteristics | | | | | | determined by | | | | | | [employer]. See | | | | | | Compliance Statement B: | | | | | | The Online [employer]/CSPerformed | | | | | | by [employer],[address] | | | | | | Liliana Martinez, [facility],[place] | | | | | | [address] | | | | | | [phone].[employer] 401. | | | | | | Mt [...] | | | | | | [employer]/CS | | | | + + + + + + + + | Specimen | + + | Blood - Blood | + + + + + + + | Performing | Address | City/State/Zipcode | Phone Number | | Organization | | | | + + + + + | [facility] | [address] | [place], [place] | | | [facility] | | [address] | | + + + + + [...]
--- OUTSIDE RECORDS SUMMARY | ~2019-05-10 | XMS | Encounter Summary ---
Demographics + + + | Address | [address] | | | [place] [address] | + + + | Home Phone [...] [place], [place] | | | | | [address] | | + + + + + | Ellie Vang | ECON | Unknown | | + + + + + Care Team Providers + +------+ + | Care Sales Team Leader Name | Role | Phone | [...] repair incarcerated | | 2012 | | [facility] | [address] [facility] | ventral hernia; | | | | Admitting Desk | [address] | possible bowel | | | | Located on the | [place], [place] | resection; | | | | floor [address] [facility] | [address] | | | | | [address] | [phone] | | | | | [place], [place] | | | | | | [address] | | | +--------+---------+ + + + [...] yuriy tral hernia. She was transferred from [place] for surgical evaluation of possible incarcer ated [...] Cipro. POD 5 she was discharged ho sc, tolerating a diabetic diet. Having bowel function. [...] yuriy tral hernia. She was transferred from [place] for surgical evaluation of possible incarcer ated [...] Cipro. POD 5 she was discharged ho sc, tolerating a diabetic diet. Having bowel function. [...] keeping you from eating and drinking, Call [phone]. It is important to stay hydrated! If [...] taking narcotic that contain Tylenol (acetaminophen) Example: Carnegie, Lortab, Vicodin, hydrocodone/APAP, Percocet, Tylenol #3 PAIN MEDICATIONS are ONLY REFILLED during CLINIC APPOINTMENTS. Please call [phone] to schedule an appointment. Your Follow-Up Plan Follow up with ROBIN MEJIA in 2 weeks. Contact information: [address] [facility] [address] Vitals on discharge: Ht 154.9 cm (5' [...] might be different f rom the original. [facility] [place] DEPARTMENT OF SURGERY EMERGENCY GENERAL SURGERY [...] without erythema and no infecti on noted. Austin intact : good urine output and Patient [...] clinic - [place] [phone] pager number [place] [phone] [facility] [address] Aminta Goodwin Md - 11/11/2012 7:40 AM PDT [facility] DEPARTMENT OF SURGERY EMERGENCY GENERAL SURGERY Division of Trauma and Critical Care Attending Physician: Andie Brian MD Progress Note Note Date: 11/11/2012 Admission Date: 11/06/2012 DYLAN ROMERO, [id number] Hospital Day #5 INTERVAL EVENTS none acute [...] mg, Rectal, DAILY PRN, Aminta Wilson MD uqoavhlrau-cqxfpxioujfuj-bjrujeka (aka FIORICET) 50-325-40 mg 1 Tab, 1 [...] Jayne Ponce MD, 1 mg at 11/10/12801 obevelvlhl-qfuzaiorhsrjp-yhrfbrqt (aka FIORICET) 50-325-40 mg 1 Tab, 1 [...] in preservative free NaCl 0.9% 50 mL HOME E[employer]OMIST [employer] infusion, , Intravenous, KIESHA NUOUS, Aracely Flores [...] diet -add bowel regimen 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 [employer], tylenol -convert to oral pain medication once [...] Fluids: LR 125ml/hr Feeding: NPO Analgesia: Dilaudid [employer]CON[employer]IST [employer] Sedation: not indicated Thromboprophylaxis: enoxaparin Head of [...] Ponce MD, 1 mg at 11/09/12 0855 phvxpgcqab-sfmoukpppcfww-tftkppsl (aka FIORICET) 50-325-40 mg 1 Tab, 1 [...] in preservative free NaCl 0.9% 50 mL HOME ECONOMIST [employer] infusion, , Intravenous, KIESHA NUOUS, Aracely Flores [...] drainage <30ml for 24hrs 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 [employer], tylenol Diabetes: -insulin gtt not started due [...] Fluids: LR 125ml/hr Feeding: NPO Analgesia: Dilaudid [employer]IST [employer] Sedation: not indicated Thromboprophylaxis: enoxaparin Head of bed: > 30 Ulcer prophylaxis: pepcid Glycemic control: adequate Activity/PT/OT: Ongoing Yogurt: ABX on Probiotics:yes AMINTA WILSON MD General Surgery, R1 aleb Walker S, N P - 11/08/2012 8:49 AM PDT [facility] DEPARTMENT OF SURGERY EMERGENCY GENERAL SURGERY Division of Trauma and Critical Care Attending Physician: Andie Brian MD Progress Note Note Date: 11/08/2012 Admission Date: 11/06/2012 DYLAN ROMERO, [id number] Hospital Day #2 INTERVAL EVENTS NO SUBJECTIVE Pain well controlled; has headache attributed to dilaudid [employer] Tylenol did not help. Flatus: YES Tolerating [...] trials today. -DC ruiz 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 [employer], tylenol Diabetes: -insulin gtt not started due [...] Fluids: LR 125ml/hr Feeding: NPO Analgesia: Dilaudid [employer] Sedation: not indicated Thromboprophylaxis: enoxaparin Head of bed: > 30 Ulcer prophylaxis: pepcid Glycemic control: adequate Activity/PT/OT: Ongoing Yogurt: ABX on Probiotics: No KALEB WALKER NP [facility] [address] [place] [facility] elvin Stephens MD - 11/07/2012 9:51 PM [...] 7.33* PCO2 49* PO2 113* HCO3 25 HUNLJ1WZQ 26 F7ZNANZX 98.3* U5CSOKIBZ -- FIO2 60 ABGEXCESS -0.9 Assessment, Medical Decision Making and Plan 1. Incarcerated hernia, now s/p repair and panniculectomy -Binder, pain control, minimize nausea and coughing PRN. -NG clamping trials today. 2. 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, tylenol 3. Diabetes: -insulin gtt 4. Morbid [...] Dione Grimes MD R-2, General Surgery Pager: [phone] [facility] [place] Department of Surgery Trauma ICU Team Pager (24hrs/day): [phone] I was present with the resident during the history and exam. I discussed the case with the resident and agree with the findings and plan as documented in the resident s note. KELVIN STEPHENS MD [facility] [address] [facility] [place] [address] [id number] Onur Graves MD - 11/07/2012 2:37 AM [...] g 16 g Oral Q15MIN PRN Danny aLgos MD HYDROmorphone 25 mg in preservative free NaCl 0.9% 50 mL [employer] infusion Intravenous CON TINUOUS Aracely Flores, DO [...] POD#1 s/p primary repair. 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 community relations director and prn tylenol, continue prozac and zyprexa [...] F: probable remain NPO today A: dilaudid community relations director, prn tylenol S: prn benzos as she is at home T: will start prophylactic lovenox today H: HOB >30 degrees U: pepcid G: insulin gtt ONUR ALLEN MD, PGY3 [place] [address] [id number] [place] [address] Onelia Shrestha MD - 11/06/2012 8:41 AM PDT [facility] DEPARTMENT OF SURGERY Division of Trauma and Critical Care Emergency General Surgery / Acute Care Surgery Attending Physician: Andie Brian MD Note Date: 11/06/2012 Admission Date: 11/06/2012 DYLAN ROMERO, [id number] Hospital Day #0 OVERNIGHT EVENTS: anxious SUBJECTIVE: [...] wwp LABS: reviewed and are available in [facility] (if new data) IMAGING: VASCULAR: IMPRESSION: [...] Flannery | | | | | | [place], [place] | | | | | | [address] | | | | | | [phone] | | | | | | | | +--------+ + + + + | 06/27/ | Telephone-S | Pre-operative | | | | 2018 | cheduled | Medicine | | | +--------+ + + + + | 06/30/ | Office | Cardiology | Randell Franks, | | | 2019 | Visit | | [address] | | | | | | [place], [place] | | | | | | [address] | | | | | | [phone] | | | | | | | [...] Mae | | | | | | [place] | | | | + + + [...] [facility] | [address] | [place], [place] | | | [place] OF CARE | [facility] | [address] | | | TESTS | | | [...] (H) | 60 - 99 mg/dL | [facility] - | | | GLUCOSE, [...] AMES | [address] | [place], [place] | | | [place] OF CARE | [address] | [address] | | | TESTS | | | [...] | + + + + + | [facility] | [address] | [place] [address] | | | SERVICES, CORE | PARK [...] the MDRD equation recommended by the | [facility] | | National Kidney Disease [...] | + + + + + | [facility] | [address] | [place] [address] | | | LYDIA RANGEL | CLARENCE [...] | + + + + + | [facility] | [address] | [place] [address] | | | SERVICES, [facility] | [address] | [...] (H) | 60 - 99 mg/dL | [facility] - | | | GLUCOSE, [...] AMES | [address] | [place], [place] | | | [place] OF CARE | [facility] | [address] | | | TESTS | | | [...] [facility] | [address] | [place], [place] | | | [place] OF [place] | [address] | [address] | | | TESTS | | | [...] - [facility] | [address] | [place], [place] | | | [place] OF CARE | [facility] | [address] | | | TESTS | | | [...] (H) | 60 - 99 mg/dL | [facility] - | | | GLUCOSE, [...] AMES | [address] | [place], [place] | | | [place] OF CARE | [facility] | [address] | | | TESTS | | | [...] [facility] | [address] | [place], [place] | | | [place] OF [place] | [address] | [address] | | | TESTS | | | [...] [facility] | [address] | [place] [address] | | | SERVICES, CORE | PARK [...] | + + + + + | [facility] | [address] | [place] [address] | | | SERVICES, CORE | PARK [...] | + + + + + | [facility] [employer] | [address] | [place] [address] | | | SERVICES, CORE | CLARENCE [...] Y[facility] | [address] | [place] | | | JUST[place]WN OF CARE | [address] | [address] | | | TESTS | | | [...] [facility] | [address] | [place], [place] | | | JUST[place] OF CARE | [address] | [address] | | | TESTS | | | [...] AMES | [address] | [place], [place] | | | JUST[place] OF CARE | [address] | [address] | | | TESTS | | | [...] [facility] | [address] | [place], [place] | | | JUST[place]WN OF CARE | [address] | [address] | | | TESTS | | | [...] - [facility] | [address] | [place], [place] | | | [place] [facility] | [address] | [address] | | | TESTS | | | [...] [facility] | [address] | [place] [address] | | | SERVICES, CORE | PARK [...] | + + + + + | [facility] | [address] | [place] [address] | | | SERVICES, CORE | CLARENCE [...] [facility] | [address] | [place] [address] | | | SERVICES, CORE | PARK [...] [facility] | [address] | [place], [place] | | | JUSTINE DAWN OF CARE | [address] | [address] | | | TESTS | | | [...] AMES | [address] | [place], [place] | | | [place] OF [place] | [address] | [address] | | | TESTS | | | [...] [facility] | [address] | [place], [place] | | | [place]INT OF CARE | [address] | [address] | | | TESTS | | | [...] | | | Final CULTURE | | [place] | | | | RESULT:>100,000 cfu/ml | [...] + | [facility] | [address] | [place] [address] | | | [place] | | | [...] [facility] | [address] | [place] [address] | | | SERVICES, CORE | CLARENCE [...] | + + + + + | [facility] | [address] | [place] [address] | | | SERVICES, CORE | CLARENCE [...] [facility] | [address] | [place], [place] | | | [place] OF [place] | [facility] | [address] | | | TESTS | | | [...] [facility] | [address] | [place] [address] | | | SERVICES, CORE | PARK [...] | + + + + + | [facility] | [address] | [place] [address] | | | SERVICES, CORE | PARK [...] | + + + + + | [facility] | [address] | [place] [address] | | | SERVICES, CORE | CLARENCE [...] [facility]QU[facility] | [address] | [place], [place] | | | [place] OF [place] | [address] | [address] | | | TESTS | | | [...] | | | POC | | | UJSTINE DAWN | | | | | | [...] Y[facility] | [address] | [place], [place] | | | JUST[place]WN OF CARE | [facility] | [address] | | | TESTS | | | [...] AMES | [address] | [place], [place] | | | [facility] [place] OF [facility] | [facility] | [address] | | | TESTS | | | [...] | + + + + + | [facility] [employer] [facility] | [address] | [place] [address] | | | SERVICES, CORE | [address] | | | + + + + + MAGNESIUM, PLASMA (11/08/2012 7:48 AM PDT) + +---------+ + + + | Component | Value | Ref Range | Performed | Pathologist | | | | | At | Signature | + +---------+ + + + | MAGNESIUM,P | 1.4 (L) | 1.8 - 2.5 mg/dL | [facility] | | | LASMA | [...] | + + + + + | [facility] | [address] | [place] [address] | | | SERVICES, CORE | PARK [...] | + + + + + | [facility] | [address] | [place] [address] | | | SERVICES, CORE | CLARENCE [...] 92 | 60 - 99 mg/dL | [facility] - | | | GLUCOSE, [...] + + + | [facility] | [address] | [place], [place] | | | [place] [facility] | [address] | [address] | | | TESTS | | | [...] [facility] | [address] | [place], [place] | | | JUSTINE DAWN OF CARE | [address] | [address] | | | TESTS | | | [...] + | [facility] | [address] | [place], [place] | | | [place] [facility] | [facility] | [address] | | | TESTS | | | [...] | + + + + + | [facility] | [address] | [place] [address] | | | SERVICES, CORE | [address] | | | + + + + + MAGNESIUM, PLASMA (11/07/2012 12:30 AM PDT) + +---------+ + + + | Component | Value | Ref Range | Performed | Pathologist | | | | | At | Signature | + +---------+ + + + | MAGNESIUM,P | 1.7 (L) | 1.8 - 2.5 mg/dL | [facility] | | | LASMA | [...] | + + + + + | [facility] | [address] [facility] | [place] [address] | | | SERVICES, CORE | CLARENCE [...] the MDRD equation recommended by the | [facility] | | National Kidney Disease [...] | + + + + + | [facility] | [address] | [place] [address] | | | CLAIRE, LYDIA | [address] | | | + + + + + X-RAY PORTABLE CHEST 1 VIEW (11/06/2012 4:46 PM PDT) + + + + + + | Component | Value | Ref Range | Performed | Pathologist | | | | | At | Signature | + + + + + + | X-RAY | STUDY: PA CHEST 1 VIEW | | | | | PORTABLE | 11/06/12 16:46:00 | | | | | CHEST 1 | INDICATION: Right upper | | | | | VIEW | lobe opacity. | | | | | | COMPARISON: Earlier same | | | | | | day a STUDY: PA CHEST 1 | | | | | [...] | | + +---------+ + + | [facility] DEPARTMENT OF | | | | | RADIOLOGY | | | | + +---------+ + + X-RAY PORTABLE CHEST 1 VIEW (11/06/2012 4:30 PM PDT) + + + + + + | Component | Value | Ref Range | Performed | Pathologist | | | | | At | Signature | + + + + + + | X-RAY | STUDY: PA CHEST 1 VIEW | | | | [...] [facility] | [address] | [place] [address] | | | SERVICES, CORE | PARK [...] | + + + + + | [facility] | [address] [facility] | [place] [address] | | | CLAIRE, LYDIA | CLARENCE [...] | + + + + + | [facility] | [address] | [place] [address] | | | SERVICES, CORE | PARK [...] [facility] | [address] | [place], [place] | | | ABRA[place] DAWN | [facility] | [address] | | | TESTS | | | | + + + + + ABG NOAM POC (11/06/2012 1:03 PM PDT) + + [...] [facility] | | | | | | [place] | | | | | | [...] [facility] | [address] | [place], [place] | | | JUST[place]WN OF JAK[place] | [facility] | [address] | | | TESTS | | | | + + + + + LACTATE (ART), POC SOR (11/06/2012 11:08 AM PDT) + +-------+ + + + | Component | Value | Ref Range | Performed | Pathologist | | | | | At | Signature | + +-------+ + + + | LACTATE POC | 0.6 | 0.5 - 1.6 | [facility] - | | | | | mmol/L [...] | [facility] | [address] | [place], [place] | | | [place] OF [facility] | [address] | [address] | | | TESTS | | | [...] | | | | | mmol/L | [facility] | | | | | [...] AMES | [address] | [place], [place] | | | JUSTINE DAWN OF CARE | [facility] | [address] | | | TESTS | | | | + + + + + POTASSIUM (ART)VALERIE (11/06/2012 11:08 AM PDT) + +-------+ [...] [facility] | [address] | [place], [place] | | | [place]INT OF CARE | [address] | [address] | | | TESTS | | | | + + + + + GLUCOSE (ART), POC SOR (11/06/2012 11:08 AM PDT) + +---------+ + + + | Component | Value | Ref Range | Performed | Pathologist | | | | | At | Signature | + +---------+ + + + | GLUCOSE, | 122 (H) | 60 - 99 mg/dL | [facility] - | | | POC | [...] [facility] | [address] | [place], [place] | | | JUST[place] OF JAKY | [facility] | [address] | | | TESTS | | | [...] AMES | [address] | [place], [place] | | | JUST[place] OF CARE | [address] | [address] | | | TESTS | | | | + + + + + CALCIUM (ART) POC NOAM (11/06/2012 11:08 AM PDT) + +-------+ + + + | Component | Value | Ref Range | Performed | Pathologist | | | | | At | Signature | + +-------+ + + + | LEV | 1.24 | 1.14 - 1.32 | [facility] - | | | IONIZED CA, | | mmol/L | [facility] | | | VALERIE | | | JUST[place]WN | | [...] [facility] | [address] | [place], [place] | | | JUST[place]WN OF CARE | [facility] | [address] | | | TESTS | | | [...] [facility] | [address] | [place], [place] | | | JUSTINE DAWN OF CARE | [address] | [address] | | | TESTS | | | [...] [facility] | [address] | [place], [place] | | | [place] OF J[place] | [address] | [address] | | | TESTS | | | [...] [facility] | [address] | [place], [place] | | | [place] OF [facility] | [facility] | [address] | | | TESTS | | | [...] | + + + + + | [facility] | [address] | [place] [address] | | | SERVICES, | [address] [...] [facility] | [address] | [place], [place] | | | [place]INT OF CARE | [address] | [address] | | | TESTS | | | [...] [facility] | [address] | [place] [address] | | | SERVICES, | [address] [...] | + + + + + | [facility] | [address] | [place] [address] | | | SERVICES, | [address] [...] [facility] | [address] | [place] [address] | | | SERVICES, CORE | PARK [...] [facility] | [address] | [place] [address] | | | SERVICES, CORE | PARK [...] | + + + + + | [facility] | [address] | [place] [address] | | | SERVICES, CORE | CLARENCE [...] | + + + + + | [facility] | [address] [facility] | [place] [address] | | | SERVICES, CORE | CLARENCE [...] | + + + + + | [facility] | [address] | [place] [address] | | | SERVICES, CORE | PARK [...] view image for the detailed interpretation from [employer] results. | CARDIOLOGY | + + + + + + + + | Performing | Address | City/State/Zipcode | Phone Number | | Organization | | | | + + + + + | [facility] | [address] [facility] | [place], [place] | | | CARDIOLOGY | [address] | [address] | | + + + + + [...] | + + + + + | [facility] | [address] | [place] [address] | | | SERVICES, CORE | [address]ENCE [...] | + + + + + | [facility] | [address] | [place] [address] | | | SERVICES, CORE | [address] | | | + + + + + documented in this encounter Visit Diagnoses + + | Diagnosis | + + | Incarcerated ventral hernia Ventral hernia, unspecified, with obstruction | + + documented in this encounter
--- OUTSIDE RECORDS SUMMARY | ~2019-05-10 | XMS | Encounter Summary ---
Demographics + + + | Address | [address] | | | [place] [address] | + + + | Home Phone [...] [place], [place] | | | | | [address] | | + + + + + | Ellie Vang | ECON | Unknown | | + + + + + Care Team Providers + +------+ + | Care Motor Vehicle Examiner Name | Role | Phone | + +------+ + | Fadi Goodrich DO | PCP | | + +------+ + Encounter Details +--------+ + + + + | Date | Type | Department | Care Team | Description | +--------+ + + + + | 08/16/ | Abstract | [facility] | Kathy Feldman, | | | 2013 | | Center at [facility] [address] | FINISH PRODUCTION MANAGER [address] | | | | | [address] | [facility] [address] | | | | | Mailcode: Center | [place], [place] | | | | | [facility] and | [address] | | | | | [facility] [address] | [phone] | | | | | [place], [place] | | | | | | [address] | | | | | | [phone] | | | +--------+ + + + [...] | | | | | | [place], [place] | | | | | | [address] | | | | | | [phone] | | | | | | | [...] | | | | | [place], [place] | | | | | | [address] | | | | | | [phone] | | | | | | | | +--------+ + + + + | 07/08/ | Procedure | Surgery | | | | 2019 | Pass | | | | +--------+ + + + + documented as of this encounter Visit Diagnoses Not on filedocumented in this encounter"
--- OUTSIDE RECORDS SUMMARY | ~2019-05-10 | XMS | Encounter Summary ---
Demographics + + + | Address | [address] | | | [place] [address] | + + + | Home Phone [...] [place], [place] | | | | | [address] | | + + + + + | Ellie Vang | ECON | Unknown | | + + + + + Care Team Providers + +------+ + | Care Clinical Studies Specialist Name | Role | Phone | [...] + + | 03/01/ | Hospital | [facility] [address] | Ion Castanon, | | | 2018 - | Encounter | [address] | [address] | | | | | [place], [place] | [place], [place] | | | 03/03/ | | [address] | [address] | | | 2017 | | [phone] | [phone] | | | | | | | [...] ACNP - 03/03/2018 9:49 AM PDT [facility] RED SURGERY INPATIENT DISCHARGE SUMMARY Author: [...] to a bariatric full liquid diets. [facility] dietitian was consulted and they [...] at minimum. 5. Follow with PCP for Fly Setter within 1 - 2 weeks of discharge [...] mg by mouth two times daily. CALCIUM CRB&ISH-V2-[id number]-GENIS ORAL Take 2 tablets by mouth two [...] or Kefir, [place] Yogurt, and Chioban i Kittitian Yogurt are common brands with beneficial probiotics. [...] are available over the counter at most [facility] [employer] stores. Nausea/Vomiting/Difficulty Swallowing Nausea/Vomiting/Difficulty swallowing: Could be [...] hours per your instructions. Some medications, like [place], have Tylenol in it. Make sure [...] hours by calling the surgery office at [phone]. - After hours, weekends and holidays, you may call the hospital air brush operator at [phone] an d have the weapons system instrument mechanic Red Surgery Team paged. OTHER DISCHARGE ORDERS [...] at minimum. 5. Follow with PCP for Fly Setter within 1 - 2 weeks of discharge [...] Department Dept Phone Center 03/10/2018 1:30 PM [facility] at [facility] 6th Floor [phone] FO OD AND NUT 03/10/2018 3:05 PM [facility] Dig[facility]ive [facility] at [facility] 6th Floor [phone] [facility] 04/01/2018 10:30 AM [facility] at [facility] 6th Floor [phone] FO OD AND NUT 04/01/2018 11:00 AM Ion Castanon [facility] 6th Floor [phone] [facility] 05/27/2018 2:30 PM [facility] Digestive [facility] at [facility] 6th Floor [phone] FO OD AND NUT 05/27/2018 3:05 PM [facility] Dig[facility] at [facility] 6th Floor [phone] [facility] 05/27/2018 4:30 PM [facility] at [facility] 15th Floor [phone] Comprehensiv 06/04/2018 10:35 AM Randell Franks Cardiology Preventive at [facility] [phone] Cardiology Discharging Physician: KAIN Agee Attending Physician: Ion Castanon MD [facility] Surgery Pager# [phone] 9:50 AM 03/03/2018 documented in this enco [...] | | 0 | | | | CRB&[id number]-[id number]-GEN | mouth two times | | | [...] date of discharge 03/03/18 PARTHA Calixto MS3 [facility] Demarcus Menon MD - [...] for care ride home (pt lives in [place]) Demarcus Alas M.D. General Surgery Resident PGY-1 Pager: [phone] Ion Ferrari MD - 10:00 AM PDTI [...] [address] | | | | | | [place], [place] | | | | | | [address] | | | | | | [phone] | | | | | | | [...] | | | | [place], [place] | | | | | | [address] | | | | | | [phone] | | | | | | | [...] PDT | over, adult ([facility]) | results section. | + +--------+ + + + | CAPILLARY BLOOD | Routin | 03/03/2018 | Morbid obesity | Results for this | | GLUCOSE (NO CHG), | e | 6:28 AM | with BMI of 70 and | procedure are in the | | POC | | PDT | over, adult ([facility]) | results section. | + +--------+ + + + | CAPILLARY BLOOD | Routin | 03/02/2018 | Morbid obesity | Results for this | | GLUCOSE (NO CHG), | e | 9:17 PM | with BMI of 70 and | procedure are in the | | POC | | PDT | over, adult ([facility]) | results section. | + +--------+ + + + | CAPILLARY BLOOD | Routin | 03/02/2018 | Morbid obesity | Results for this | | GLUCOSE (NO CHG), | e | 6:50 PM | with BMI of 70 and | procedure are in the | | POC | | PDT | over, adult ([facility]) | results section. | + +--------+ + + + | CAPILLARY BLOOD | Routin | 03/02/2018 | Morbid obesity | Results for this | | GLUCOSE (NO CHG), | e | 3:46 PM | with BMI of 70 and | procedure are in the | | POC | | PDT | over, adult ([facility]) | results section. | + +--------+ + + + | CAPILLARY BLOOD | Routin | 03/02/2018 | Morbid obesity | Results for this | | GLUCOSE (NO CHG), | e | 2:36 PM | with BMI of 70 and | procedure are in the | | POC | | PDT | over, adult ([facility]) | results section. | + +--------+ + + + | CAPILLARY BLOOD | Routin | 03/02/2018 | Morbid obesity | Results for this | | GLUCOSE (NO CHG), | e | 1:33 PM | with BMI of 70 and | procedure are in the | | POC | | PDT | over, adult ([facility]) | results section. | + +--------+ + + + | CAPILLARY BLOOD | Routin | 03/02/2018 | Morbid obesity | Results for this | | GLUCOSE (NO CHG), | e | 11:36 AM | with BMI of 70 and | procedure are in the | | POC | | PDT | over, adult ([facility]) | results section. | + +--------+ + + + | CAPILLARY BLOOD | Routin | 03/02/2018 | Morbid obesity | Results for this | | GLUCOSE (NO CHG), | e | 10:32 AM | with BMI of 70 and | procedure are in the | | POC | | PDT | over, adult ([facility]) | results section. | + +--------+ + + + | CAPILLARY BLOOD | Routin | 03/02/2018 | Morbid obesity | Results for this | | GLUCOSE (NO CHG), | e | 9:23 AM | with BMI of 70 and | procedure are in the | | POC | | PDT | over, adult ([facility]) | results section. | + +--------+ + + + | CAPILLARY BLOOD | Routin | 03/02/2018 | Morbid obesity | Results for this | | GLUCOSE (NO CHG), | e | 8:36 AM | with BMI of 70 and | procedure are in the | | POC | | PDT | over, adult ([facility]) | results section. | + +--------+ + + + | CAPILLARY BLOOD | Routin | 03/02/2018 | Morbid obesity | Results for this | | GLUCOSE (NO CHG), | e | 7:35 AM | with BMI of 70 and | procedure are in the | | POC | | PDT | over, adult ([facility]) | results section. | + +--------+ + + + | CAPILLARY BLOOD | Routin | 03/02/2018 | Morbid obesity | Results for this | | GLUCOSE (NO CHG), | e | 6:33 AM | with BMI of 70 and | procedure are in the | | POC | | PDT | over, adult ([facility]) | results section. | + +--------+ + + + | CAPILLARY BLOOD | Routin | 03/02/2018 | Morbid obesity | Results for this | | GLUCOSE (NO CHG), | e | 5:28 AM | with BMI of 70 and | procedure are in the | | POC | | PDT | over, adult ([facility]) | results section. | + +--------+ + + + | CAPILLARY BLOOD | Routin | 03/02/2018 | Morbid obesity | Results for this | | GLUCOSE (NO CHG), | e | 4:36 AM | with BMI of 70 and | procedure are in the | | POC | | PDT | over, adult ([facility]) | results section. | + +--------+ + + + | CAPILLARY BLOOD | Routin | 03/02/2018 | Morbid obesity | Results for this | | GLUCOSE (NO CHG), | e | 2:46 AM | with BMI of 70 and | procedure are in the | | POC | | PDT | over, adult ([facility]) | results section. | + +--------+ + + + | CAPILLARY BLOOD | Routin | 03/02/2018 | Morbid obesity | Results for this | | GLUCOSE (NO CHG), | e | 12:32 AM | with BMI of 70 and | procedure are in the | | POC | | PDT | over, adult ([facility]) | results section. | + +--------+ + + + | CAPILLARY BLOOD | Routin | 03/01/2018 | Morbid obesity | Results for this | | GLUCOSE (NO CHG), | e | 10:31 PM | with BMI of 70 and | procedure are in the | | POC | | PDT | over, adult ([facility]) | results section. | + +--------+ + + + | CAPILLARY BLOOD | Routin | 03/01/2018 | Morbid obesity | Results for this | | GLUCOSE (NO CHG), | e | 8:21 PM | with BMI of 70 and | procedure are in the | | POC | | PDT | over, adult ([facility]) | results [...] PDT | over, adult ([facility]) | results section. | + +--------+ + + + | CAPILLARY BLOOD | Routin | 03/01/2018 | Morbid obesity | Results for this | | GLUCOSE (NO CHG), | e | 3:31 PM | with BMI of 70 and | procedure are in the | | POC | | PDT | over, adult ([facility]) | results section. | + +--------+ + + + | CAPILLARY BLOOD | Routin | 03/01/2018 | Morbid obesity | Results for this | | GLUCOSE (NO CHG), | e | 3:29 PM | with BMI of 70 and | procedure are in the | | POC | | PDT | over, adult ([facility]) | results section. | + +--------+ + + + | CAPILLARY BLOOD | Routin | 03/01/2018 | Morbid obesity | Results for this | | GLUCOSE (NO CHG), | e | 2:30 PM | with BMI of 70 and | procedure are in the | | POC | | PDT | over, adult ([facility]) | results section. | + +--------+ + + + | CAPILLARY BLOOD | Routin | 03/01/2018 | Morbid obesity | Results for this | | GLUCOSE (NO CHG), | e | 1:35 PM | with BMI of 70 and | procedure are in the | | POC | | PDT | over, adult ([facility]) | results section. | + +--------+ + + + | CAPILLARY BLOOD | Routin | 03/01/2018 | Morbid obesity | Results for this | | GLUCOSE (NO CHG), | e | 12:16 PM | with BMI of 70 and | procedure are in the | | POC | | PDT | over, adult ([facility]) | results [...] YAKOVAM | [address] | [place], [place] | | | [facility] | [facility] | [address] | | | TESTS | | | [...] (H) | 70 - 99 mg/dL | [facility] [...] KWAKU | [address] | [place], [place] | | | [place] [facility] | [address] | [address] | | | TESTS | | | [...] + + | Performing | Address | City/State[facility] | Phone Number | | Organization | | | | + + + + + | NKECHI AMES | [address] | [place], [place] | | | [facility] | [facility] | [address] | | | TESTS | | | [...] KWAKU | [address] | [place], [place] | | | [facility] | [facility] | [address] | | | TESTS | | | | + + + + + CAPILLARY BLOOD GLUCOSE (NO CHG), POC (03/02/2018 6:50 PM PDT) + +-------+ + + + | Component | Value | Ref Range | Performed | Pathologist | | | | | At | Signature | + +-------+ + + + | BLOOD | 87 | 70 - 99 mg/dL | [facility] [...] LANEYQUAM | [address] | [place], [place] | | | [place] [facility] | [address] | [address] | | | TESTS | | | [...] AMES | [address] | [place], [place] | | | [facility] | [facility] | [address] | | | TESTS | | | [...] YAKOVAM | [address] | [place], [place] | | | [facility] | [facility] | [address] | | | TESTS | | | [...] (H) | 70 - 99 mg/dL | [facility] [...] KWAKU | [address] | [place], [place] | | | [facility] [facility] | [address] | [address] | | | TESTS | | | [...] AMES | [address] | [place], [place] | | | [facility] | [facility] | [address] | | | TESTS | | | [...] YAKOVAM | [address] | [place], [place] | | | [facility] | [facility] | [address] | | | TESTS | | | [...] (H) | 70 - 99 mg/dL | [facility] [...] KWAKU | [address] | [place], [place] | | | [place] [facility] | [address] | [address] | | | TESTS | | | [...] AMES | [address] | [place], [place] | | | [facility] | [facility] | [address] | | | TESTS | | | [...] - MARQUAM | [address] | [place], [place] | | | [facility] | [facility] | [address] | | | TESTS | | | | + + + + + CAPILLARY BLOOD GLUCOSE (NO CHG), POC (03/02/2018 6:33 AM PDT) + +-------+ + + + | Component | Value | Ref Range | Performed | Pathologist | | | | | At | Signature | + +-------+ + + + | BLOOD | 96 | 70 - 99 mg/dL | [facility] [...] MARQUAM | [address] | [place], [place] | | | [facility] | [address] | [address] | | | TESTS | | | [...] AMES | [address] | [place], [place] | | | [facility] | [facility] | [address] | | | TESTS | | | [...] MARQUAM | [address] | [place], [place] | | | [facility] | [facility] | [address] | | | TESTS | | | [...] MARQUAM | [address] | [place], [place] | | | [facility] | [facility] | [address] | | | TESTS | | | [...] AMES | [address] | [place], [place] | | | [facility] [facility] | [address] | [address] | | | TESTS | | | [...] MARQUAM | [address] | [place], [place] | | | [facility] | [facility] | [address] | | | TESTS | | | [...] MARQUAM | [address] | [place], [place] | | | [facility] | [address] | [address] | | | TESTS | | | [...] AMES | [address] | [place], [place] | | | [facility] | [facility] | [address] | | | TESTS | | | [...] - MARQUAM | [address] | [place], [place] | | | [facility] | [facility] | [address] | | | TESTS | | | | + + + + + CAPILLARY BLOOD GLUCOSE (NO CHG), POC (03/01/2018 3:29 PM PDT) + +-------+ + + + | Component | Value | Ref Range | Performed | Pathologist | | | | | At | Signature | + +-------+ + + + | BLOOD | 74 | 70 - 99 mg/dL | [facility] [...] MARQUAM | [address] | [place], [place] | | | [facility] | [address] | [address] | | | TESTS | | | [...] AMES | [address] | [place], [place] | | | [facility] | [facility] | [address] | | | TESTS | | | [...] YAKOVAM | [address] | [place], [place] | | | [facility] | [facility] | [address] | | | TESTS | | | [...] (H) | 70 - 99 mg/dL | [facility] [...] AMES | [address] | [place], [place] | | | [facility] | [address] | [address] | | | TESTS | | | | + + + + + EGD (ESOPHAGOGASTRODUODENOSCOPY) (03/01/2018 11:21 AM PDT) + + + | Narrative | Performed At | + + + | Ion Castanon MD 03/01/2018 12:25 PM Date of Procedure: | | | 03/01/18 Primary Surgeon: Ion Castanon MD Co Surgeon or | | | title assistant: Eldon Gonzalez MD, Chief Resident Alexx [...] The jejunum was divided with 60 mm Mount Vision stapler with white | | | load [...] created in each limb and a 60mm Mount Vision stapler | | | with white load was fired to create a [id number] | | | jejunojejunostomy. The anastamosis was confirmed to be widely | | | patent and hemostatic. The common enterotomy was closed by placing | | | 2 stay sutures along the enterotomy for retraction and firing an | | | Mount Vision 60mm stapler with white load across the [...] | | | was entered. The 60mm Mount Vision stapler with blue load was placed | [...] blue load of the 60mm stapler. The Mount Vision was then fired | | | longitudinally towards the angle of His to create the gastric pouch, | | | leaving the gastrotomy from foreign body removal, on the pouch. | | | Dissection was performed retrogastric to connect posterior and | | | anterior dissection planes and ensure adequate fundus exclusion. | | | Additional fires of the Mount Vision stapler were performed with blue | | [...] with | | | 5 mm clip copy holder. A 25mm Orvil was passed transorally by [...] was closed with 60mm | | | Mount Vision stapler with a white load. Medially and [...] irrigated and closed with 4-0 [facility]ocryl [facility]. The patient | | | was extubated and transferred to the recovery room in stable | | | condition. I was present for the entirety of this procedure. | | | There was no qualified resident available and Dr. Wagner was present | | | as my title assistant for the entire procedure, given the technically | | | challenging nature of this procedure. She assisted in all critical | | | steps of the procedure. Dr. Gonzalez was present for endoscopy at the | | | end of the procedure. Ion Castanon MD, FACS, [facility] | | | Bariatric Surgery | [...] MD Co Surgeon or | | | title assistant: Eldon Gonzalez MD, Chief Resident Alexx [...] The jejunum was divided with 60 mm Mount Vision stapler with white | | | load [...] created in each limb and a 60mm Mount Vision stapler | | | with white load was fired to create a [id number] | | | jejunojejunostomy. The anastamosis was confirmed to be widely | | | patent and hemostatic. The common enterotomy was closed by placing | | | 2 stay sutures along the enterotomy for retraction and firing an | | | Mount Vision 60mm stapler with white load across the [...] | | | was entered. The 60mm Mount Vision stapler with blue load was placed | [...] blue load of the 60mm stapler. The Mount Vision was then fired | | | longitudinally towards the angle of His to create the gastric pouch, | | | leaving the gastrotomy from foreign body removal, on the pouch. | | | Dissection was performed retrogastric to connect posterior and | | | anterior dissection planes and ensure adequate fundus exclusion. | | | Additional fires of the Mount Vision stapler were performed with blue | | [...] with | | | 5 mm clip copy holder. A 25mm Orvil was passed transorally by [...] was closed with 60mm | | | Mount Vision stapler with a white load. Medially and [...] was present | | | as my title assistant for the entire procedure, given the technically | | | challenging nature of this procedure. She assisted in all critical | | | steps of the procedure. Dr. Gonzalez was present for endoscopy at the | | | end of the procedure. Ion Castanon MD, HANK, [facility] | | | Bariatric Surgery | | + + + CAPILLARY BLOOD GLUCOSE (NO CHG), POC (03/01/2018 10:11 AM PDT) + +---------+ + + + | Component | Value | Ref Range | Performed | Pathologist | | | | | At | Signature | + +---------+ + + + | BLOOD | 161 (H) | 70 - 99 mg/dL | [facility] [...] AMES | [address] | [place], [place] | | | [facility] [facility] | [address] | [address] | | | TESTS | | | [...] BMI of 70 and over, adult ([facility]) - Primary | + + | Diabetes mellitus type 2 without retinopathy ([facility]) Type II or unspecified type |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 without mention of complication, not stated as uncontrolled | + + | AMARA treated with BiPAP | + + | Chronic diastolic heart failure ([facility]) Chronic diastolic heart failure | + + [...]
--- OUTSIDE RECORDS SUMMARY | ~2019-05-10 | XMS | Encounter Summary ---
Demographics + + + | Address | [address] | | | [place] [address] | + + + | Home Phone [...] [place], [place] | | | | | [address] | | + + + + + | Ellie Vang | ECON | Unknown | | + + + + + Care Team Providers + +------+ + | Care Combatant Diver Qualified Name | Role | Phone | + +------+ + | Fadi Goodrich DO | PCP | | + +------+ + Encounter Details +--------+ + + + + | Date | Type | Department | Care Team | Description | +--------+ + + + + | 12/29/ | Abstract | Digestive Health | Hernandez Brian, | | | 2012 | | Center at [facility] [address] | MD [address] | | | | | [address] | [facility] | | | | | Mailcode: Center | [place], [place] | | | | | [facility] and | [address] | | | | | [facility] [address] | [phone] | | | | | [place], [place] | | | | | | [address] | | | | | | [phone] | | | +--------+ + + + [...] [address] | | | | | | [place], [place] | | | | | | [address] | | | | | | [phone] | | | | | | | | +--------+ + + + + | 06/27/ | Telephone-S | Pre-operative | | | | 2019 | cheduled | Medicine | | | +--------+ + + + + | 06/30/ | Office | Cardiology | Randell Franks, | | | 2019 | Visit | | [address] | | | | | | [place], [place] | | | | | | [address] | | | | | | [phone] | | | | | | | | +--------+ + + + + | 07/08/ | Procedure | Surgery | | | | 2018 | Pass | | | | +--------+ + + + + documented as of this encounter Visit Diagnoses Not on filedocumented in this encounter"
--- OUTSIDE RECORDS SUMMARY | ~2019-05-10 | XMS | Encounter Summary ---
Demographics + + + | Address | [address] | | | [place] [address] | + + + | Home Phone [...] [place], [place] | | | | | [address] | | + + + + + | Ellie Vang | ECON | Unknown | | + + + + + Care Team Providers + +------+ + | Care Insurance Executive Name | Role | Phone | [...] | | | | | | [place] [address] | | | +--------+ + + + [...] [place] | | | | | | [address] | | | | | | [phone] | | | | | | | [...] | | | | | [address], [place] | | | | | | [address] | | | | | | [phone] | | | | | | | | +--------+ + + + + | 07/08/ | Procedure | Surgery | | | | 2019 | Pass | | | | +--------+ + + + + documented as of this encounter Visit Diagnoses Not on filedocumented in this encounter"
--- OUTSIDE RECORDS SUMMARY | ~2019-05-10 | XMS | Encounter Summary ---
Demographics + + + | Address | [address] | | | [place] [address] | + + + | Home Phone [...] [place], [place] | | | | | [address] | | + + + + + | Ellie Vang | ECON | Unknown | | + + + + + Care Team Providers + +------+ + | Care Power Manager Name | Role | Phone | [...] [place] | | | | | | [address] | | | | | | [phone] | | | | | | | [...] | | | | | [place], [place] | | | | | | [address] | | | | | | [phone] | | | | | | | | +--------+ + + + + | 07/08/ | Procedure | Surgery | | | | 2019 | Pass | | | | +--------+ + + + + documented as of this encounter Visit Diagnoses Not on filedocumented in this encounter"
--- OUTSIDE RECORDS SUMMARY | ~2019-05-10 | XMS | Encounter Summary ---
Demographics + + + | Address | [address] | | | [place] [address] | + + + | Home Phone [...] [place], [place] | | | | | [address] | | + + + + + | Ellie Vang | ECON | Unknown | | + + + + + Care Team Providers + +------+ + | Care Auto Travel Counselor Name | Role | Phone | [...] | | 2019 | | Preventive at [facility] | MD [address] | (PHENTERMINE 37.5 mg | | | | [address] | [place], [place] | oral tablet); | | | | Mailcode: [place] | [id number] | Refill Request | | | | [facility] | [phone] | | | | | and [address], | | | | | | [address] | | | | | | [place], [place] | | | | | | [address] | | | | | | [phone] | | | +--------+--------+ + + + [...] | | | | | | [place], [place] | | | | | | [address] | | | | | | [phone] | | | | | | | [...] | | | | | [place], [place] | | | | | | [address] | | | | | | [phone] | | | | | | | | +--------+ + + + + | 07/08/ | Procedure | Surgery | | | | 2018 | Pass | | | | +--------+ + + + + documented as of this encounter Visit Diagnoses Not on filedocumented in this encounter"
--- OUTSIDE RECORDS SUMMARY | ~2019-05-10 | XMS | Encounter Summary ---
Demographics + + + | Address | [address] | | | [place] [address] | + + + | Home Phone [...] [place], [place] | | | | | [address] | | + + + + + | Ellie Vang | ECON | Unknown | | + + + + + Care Team Providers + +------+ + | Care Gang Knife Fish Chopper Name | Role | Phone | + [...] | | 2018 | | Center at [facility] [address] | MD [address] | | | | | [address] | [place], [place] | | | | | Mailcode: Deweese | [address] | | | | | [facility] and | [phone] | | | | | [place] [address] | | | | | | [place], [place] | | | | | | [address] | | | | | | [phone] | | | +--------+--------+ + + + [...] Flannery | | | | | | [place], [place] | | | | | | [address] | | | | | | [phone] | | | | | | | [...] | | | | | [place], [place] | | | | | | [address] | | | | | | [phone] | | | | | | | | +--------+ + + + + | 07/08/ | Procedure | Surgery | | | | 2018 | Pass | | | | +--------+ + + + + documented as of this encounter Visit Diagnoses Not on filedocumented in this encounter"
--- OUTSIDE RECORDS SUMMARY | ~2019-05-10 | XMS | Encounter Summary ---
Demographics + + + | Address | [address] | | | [place] [address] | + + + | Home Phone [...] [place], [place] | | | | | [address] | | + + + + + | Ellie Vang | ECON | Unknown | | + + + + + Care Team Providers + +------+ + | Care Screening Nurse Name | Role | Phone | [...] the | | | | | | [facility] [address] [facility] | | | | | | [facility] | | | | | | [place], [place] | | | | | | [address] | | | +--------+ + + + [...] Flannery | | | | | | [place], [place] | | | | | | [address] | | | | | | [phone] | | | | | | | [...] | | | | | [place], [place] | | | | | | [address] | | | | | | [phone] | | | | | | | | +--------+ + + + + | 07/08/ | Procedure | Surgery | | | | 2019 | Pass | | | | +--------+ + + + + documented as of this encounter Visit Diagnoses Not on filedocumented in this encounter"
--- OUTSIDE RECORDS SUMMARY | ~2019-05-10 | XMS | Encounter Summary ---
Demographics + + + | Address | [address] | | | [place] [address] | + + + | Home Phone [...] [place], [place] | | | | | [address] | | + + + + + | Ellie Vang | ECON | Unknown | | + + + + + Care Team Providers + +------+ + | Care Medicine Tech Name | Role | Phone | + +------+ + | Kenyatta Carednas MD | PCP | | + +------+ [...] Flannery | | | | | | [facility] [place] | | | | | | [address] | | | | | | [phone] | | | | | | | [...] [place] | | | | | | [address] | | | | | | [phone] | | | | | | | | +--------+ + + + + | 07/08/ | Procedure | Surgery | | | | 2019 | Pass | | | | +--------+ + + + + documented as of this encounter Visit Diagnoses Not on filedocumented in this encounter"
--- OUTSIDE RECORDS SUMMARY | ~2019-05-10 | XMS | Encounter Summary ---
Demographics + + + | Address | [address] | | | [place] [address] | + + + | Home Phone [...] [place], [place] | | | | | [address] | | + + + + + | Ellie Vang | ECON | Unknown | | + + + + + Care Team Providers + +------+ + | Care Transonic Engineer Name | Role | Phone | [...] [address] | | | | | ([facility]) | [address] | [address] | | | | | Procedures | [place], [place] | [place], [place] | | | | | CONSULT TO | [address] | [address] | | | | | CAR | Phone: | Phone: | | | | | PREVENTATIVE | [phone] | [phone] | | | | | [facility] - | Fax: | Fax: | | | | | LIPIDS | [phone] | [phone] | +--------+--------+ + + + + Reason [...] | | 2 diabetes | [place], | [place], [place] | | | | | mellitus | [place] [address] | [address] | | | | | without | Phone: | Phone: | | | | | complication | [phone] | [phone] | | | | | (HCC) | Fax: | Fax: | | | | | Procedures | [phone] | [phone] | | | | | [place] EST | | | | | | [...] | 2017 | Visit | Preventive at [facility] | [address] | hypertension | | | | [address] | Ave [facility] [place] | (Primary Dx); Right | | | | Mailcode: CH9A | [address] | heart failure (HCC) | | | | [facility] | [phone] | | | | | and Healing, | | | | | | [address] | | | | | | [place], [place] | | | | | | [address] | | | | | | [phone] | | | +--------+---------+ + + + [...] 1 tablet by mouth once daily CALCIUM CRB&EQO-P6-BAM99-GENIS ORAL Take 2 tablets by mouth two [...] Flannery | | | | | | [place], [place] | | | | | | [address] | | | | | | [phone] | | | | | | | [...] | | | | | [place], [place] | | | | | | [address] | | | | | | [phone] | | | | | | | [...]
--- OUTSIDE RECORDS SUMMARY | ~2019-05-10 | XMS | Encounter Summary ---
Demographics + + + | Address | [address] | | | [place] [address] | + + + | Home Phone [...] [place], [place] | | | | | [address] | | + + + + + | Ellie Vang | ECON | Unknown | | + + + + + Care Team Providers + +------+ + | Care Assembler Wet Wash Name | Role | Phone | + [...] | | | | Mailcode: Center | [place], [place] | | | | | [facility] and | [address] | | | | | [facility], [facility] 2 | [phone] | | | | | [place], [place] | | | | | | [address] | | | | | | [phone] | | | +--------+ + + + [...] Flannery | | | | | | [place], [place] | | | | | | [address] | | | | | | [phone] | | | | | | | | +--------+ + + + + | 06/27/ | Telephone-S | Pre-operative | | | | 2019 | cheduled | Medicine | | | +--------+ + + + + | 06/30/ | Office | Cardiology | Randell Franks, | | | 2019 | Visit | | [address] | | | | | | [place], [place] | | | | | | [address] | | | | | | [phone] | | | | | | | | +--------+ + + + + | 07/08/ | Procedure | Surgery | | | | 2018 | Pass | | | | +--------+ + + + + documented as of this encounter Visit Diagnoses Not on filedocumented in this encounter"
--- OUTSIDE RECORDS SUMMARY | ~2019-05-10 | XMS | Encounter Summary ---
[...] + | Katalina Padilla | ECON | [address] | | | | | [place], [place] | | | | | [address] | | + + + + + | Ellie Vang | ECON | Unknown | | + + + + + Care Team Providers + +------+ + | Care Rail Washer Name | Role | Phone | [...] | | Surgery | Diagnoses | | [place], | | | | | Ventral | Chilo, | MD Joens | | | | | hernia | MD Jones | [address] | | | | | without | [address] | [address] | | | | | obstruction | [address] | [address] [place], | | | | | or gangrene | Rd | [place] | | | | | Procedures | [place], [place] | [address] | | | | | REQUEST TO | [address] | Phone: | | | | | SURGERY | Phone: | [phone] | | | | | HEAT PUMP INSTALLER | [phone] | Fax: | | | | | | Fax: | [phone] | | | | | | [phone] | | +--------+--------+ + + + + [...] 2019 | Visit | Center at [facility] | MD Jones [address] | without obstruction | | | | [address] | [facility] [address] | or gangrene (Primary | | | | Mailcode: Center | [place], [place] | Dx) | | | | for Health and | [address] | | | | | Healing, Building 2 | [phone] | | | | | [place], [place] | | | | | | [address] | | | | | | [phone] | | | +--------+---------+ + + + [...] (1?2 cup) 6.5 Avocado 1?2 fruit 2.1 [place] sprouts, cooked 125 mL (1?2 cup) 2.0 Figs, dried 60 mL (1?4 cup) 1.9 [place] 1 medium 1.8 Sweet Potato, cooked, without [...] 1.3 Eggplant 125 mL (1?2 cup) 1.3 [place], with skin 1 medium 1.0-1.3 Peas, green, cooked 125 mL (1?2 cup) 0.8-1.3 Carrot, cooked John 125 mL (1?2 cup) 1?2 fruit 1.1-1.2 0.7-1.1 Grapefruit 1?2 fruit 0.7-1.1 Prunes, dried 3 1.1 [place], with skin 2 fruits 1.1 Apricots, dried [...] Bread, rye 35 g (1 slice) 0.6-1.0 [place] bread crackers 3 crackers 0.9 Raisin bran [...] of Soluble Fiber [email or web address] PATIENT SURGERY INFORMATION [facility] General Surgery Office Toll-free: ext [phone] Surgery Date: Monday, July 08, [address]: Main [facility] Procedure: recurrent ventral hernia repair Surgeon Name: Dr. Jones Tiwari DIRECTIONS FOR SURGERY TO PREPARE FOR SURGERY - If you are able, walk every day for at least 30 minutes. - Follow up: Phone pre-operative medicine clinic call to be completed within 30 [facility]. This call appointment will be scheduled with you by a home health scheduler. You will receive a ca ll [...] ease call the General Surgery Office at [phone] for diyuc-ei-otic. Check-in on the day of surgery is at the Admitting Department located on the 9th floor of [facility]. DIET Nothing to eat or [...] Please see the list below, [facility] has a list of products that [...] contact our office . Products Containing Aspirin Yuki-Omena, Anacin, Anexsia with Codeine, Andynos, Aspirin, Aspirin suppositories, Ascrip tin, Aspergum, Axotal, B-A-C, Baby Aspirin, Lucila, BC Powder, Bexophene, Buffaprin, Bufferin , Buffinol, Cama-Arthritis Strength, Congespirin, Calmar, Coricidin, Damason, Darvon, Dristan, Kalani-Gesic, Digel, Dolprin #3 Tablets, Donatab, Doxaphene, Duragesic, Easprin, Ecotrin, Emag rin Forte, Emiprin, Emprazil, Equagesic, Equazine M, Excedrin, Fiogesic, Fiorgen PH, Fiorice t, Fiorinal, 4-Way Cold Tablet, Gemnisyn, Indocin, Liquprin, Lortab ASA, Magnaprin, Marnal, Meprobamate, Midol, Momentum, Norgesic, Stanley, Orphengesic, Pabalate, P-A-C, Percodan, Pre salin, Robaxasil, Roxiprin, Saleto, Salocol, SK-65 Compound, Sine-Aid, Sine-Off, Wood, Supac, Talwin Compound, Trigesic, Tolectin, Traiminicin, Vanquish, ZORprin, Zomax Products Containing Ibuprofen Advil, Aleve, Haltran, Medipren, Midol, Motrin, Naproxyn, Nuprin, Rufen Herbal Medications Ephedra: discontinue 24 hours before surgery Garlic: discontinue 7 days prior to surgery Ginkgo: discontinue 36 hours prior to surgery Ginseng: discontinue 7 days prior to surgery Kava: discontinue 24 hours prior to surgery Venturia s Wort: discontinue 5 days prior to surgery Valerian: discontinue several weeks prior to surgery Other Products Which May Promote Bleeding Vitamin E, Gingko Biloba, Marine Fatty Acids, [place]-3 Fish Oil Supplement PRE-OP BATHING/SHOWER INSTRUCTIONS with [facility] Bathe or shower the evening before [...] loss of tissue. Check out the free [place] Quit Line - The Quit Line is open 24 hours a day, seven days a we ek. The Quit Line is a telephone and web-based counseling service to help [place]ians quit us ing tobacco and nicotine products. .QUIT.NOW ( ) or www.quitnow.net/[place] PARKING Parking at the Hospital for patients and visitors is available in the [facility] Parking s tructure located across from the emergency department. Patient parking is available on level 1 and 3. Metered parking is available on the top level. Parking at [facility] is available in the building's parking structure. For additional parking options visit [email or web address]. TRANSPORTATION You will require transportation home on the day of discharge. Pain medications and physical activity restrictions may limit your ability to drive safely. CANCELLING YOUR PROCEDURE Please notify the general surgery office at [phone] as soon as possible should you nee [...] lost 100+ lbs! She last saw the [facility] team in 02/2019, at which time [...] plans to see an ENT and a bag washer for her symptoms in the near future. [...] less 8 [facility] Past Medical History: Diagnosis Date Abdominal [...] file Gets together: Not on file Attends orthodox service: Not on file Active member of club or organization: Not on file Attends meetings of clubs or organizations: Not on file Relationship status: Not on file Other Topics Concern Not on file Social History Narrative Updated 11/09/15 She lives in [place] with her mother and her sister (also her caregiver) lives in an apa rtment/duplex below. She has 2 grandchildren (age 4 and 7) who live with her daughter and son-in-law Her boyfriend lives in [place] HFpEF, DM2, HTN, Sleep Apnea (unable to [...] program here and refer her to our station air traffic control specialist who also has expertise in physical [...] daily. BELBUCA 600 mcg buccal film CALCIUM CRB&FCI-R7-EVD29-GENIS ORAL Take 2 tablets by mouth two [...] morbid obesity s/p laparoscopic anteocolic RYGB (03/01/2018); [facility] e this operation, she has lost [...] by Gadiel Yi . JONES TIWARI MD [facility] [address] Mailcode: [place] [address] I spent 31 minutes with [...] Flannery | | | | | | [place] | | | | | | [address] | | | | | | [phone] | | | | | | | [...] | | | | | [place], [place] | | | | | | [address] | | | | | | [phone] | | | | | | | [...]
--- OUTSIDE RECORDS SUMMARY | ~2019-05-10 | XMS | Encounter Summary ---
Demographics + + + | Address | [address] | | | [place] [address] | + + + | Home Phone [...] [place], [place] | | | | | [address] | | + + + + + | Ellie Vang | ECON | Unknown | | + + + + + Care Team Providers + +------+ + | Care Heat And Frost Insulator Helper Name | Role | Phone | [...] the | | | | | | [facility] [address] [facility] | | | | | | [facility] | | | | | | [place], [place] | | | | | | [address] | | | +--------+ + + + [...] Flannery | | | | | | [place], [place] | | | | | | [address] | | | | | | [phone] | | | | | | | [...] | | | | | [place], [place] | | | | | | [address] | | | | | | [phone] | | | | | | | | +--------+ + + + + | 07/08/ | Procedure | Surgery | | | | 2019 | Pass | | | | +--------+ + + + + documented as of this encounter Visit Diagnoses Not on filedocumented in this encounter"
--- OUTSIDE RECORDS SUMMARY | ~2019-05-10 | XMS | Encounter Summary ---
Demographics + + + | Address | [address] | | | [place] [address] | + + + | Home Phone [...] [place], [place] | | | | | [address] | | + + + + + | Ellie Vang | ECON | Unknown | | + + + + + Care Team Providers + +------+ + | Care Supervisor Counseling And Guidance Name | Role | Phone | + [...] [place] | | | | | | [address] | | | | | | [phone] | | | | | | | [...] | | | | | [place], [place] | | | | | | [address] | | | | | | [phone] | | | | | | | | +--------+ + + + + | 07/08/ | Procedure | Surgery | | | | 2019 | Pass | | | | +--------+ + + + + documented as of this encounter Visit Diagnoses Not on filedocumented in this encounter"
--- OUTSIDE RECORDS SUMMARY | ~2019-05-10 | XMS | Encounter Summary ---
Demographics + + + | Address | [address] | | | [place] [address] | + + + | Home Phone [...] + | Katalina Padilla | ECON | [address] | | | | | [place], [place] | | | | | [address] | | + + + + + | Ellie Vang | ECON | Unknown | | + + + + + Care Team Providers + +------+ + | Care Director Of Graduate Admissions Name | Role | Phone | [...] | | 2019 | | Preventive at [facility] | [address] | re-test? ) | | | | [address] | [place], [place] | | | | | Mailcode: EARL | [address] | | | | | [facility] | [phone] | | | | | and [place], | | | | | | [address] | | | | | | [place], [place] | | | | | | [address] | | | | | | [phone] | | | +--------+ + + + [...] [place] | | | | | | [address] | | | | | | [phone] | | | | | | | [...] | | | | | [place], [place] | | | | | | [address] | | | | | | [phone] | | | | | | | [...]
--- OUTSIDE RECORDS SUMMARY | ~2019-05-10 | XMS | Encounter Summary ---
Demographics + + + | Address | [address] | | | [place] [address] | + + + | Home Phone [...] [place], [place] | | | | | [address] | | + + + + + | Ellie Vang | ECON | Unknown | | + + + + + Care Team Providers + +------+ + | Care Commercial Lender Name | Role | Phone | + +------+ + | Fadi Goodrich DO | PCP | | + +------+ + Encounter Details +--------+ + + + + | Date | Type | Department | Care Team | Description | +--------+ + + + + | 11/06/ | Abstract | Digestive Health | Shereen Georges, | | | 2015 | | Center at [facility] [address] | ACNP [address] | | | | | [address] | Ave [place], [place] | | | | | Mailcode: [place] | [address] | | | | | for Health and | | | | | | [facility] 2 | | | | | | [facility] [place] | | | | | | [address] | | | | | | | [...] Flannery | | | | | | [place], [place] | | | | | | [address] | | | | | | [phone] | | | | | | | [...] | | | | | [place], [place] | | | | | | [address] | | | | | | [phone] | | | | | | | | +--------+ + + + + | 07/08/ | Procedure | Surgery | | | | 2018 | Pass | | | | +--------+ + + + + documented as of this encounter Visit Diagnoses Not on filedocumented in this encounter"
--- OUTSIDE RECORDS SUMMARY | ~2019-05-10 | XMS | Encounter Summary ---
Demographics + + + | Address | [address] | | | [place] [address] | + + + | Home Phone [...] [place], [place] | | | | | [address] | | + + + + + | Ellie Vang | ECON | Unknown | | + + + + + Care Team Providers + +------+ + | Care Corn Crop Supervisor Name | Role | Phone | [...] [address] | | | | | | [facility] | [facility] | | | | | | [facility] | Brock Mailcode: | | | | | | [facility] | [id number] | | | | | | [place], [place] | Phsyicians | | | | | | [address] | [address] | | | | | | Phone: | [place], [place] | | | | | | [phone] | [address] | | | | | | | Phone: | | | | | | | [phone] | | | | | | | Fax: | | | | | | | [phone] | +--------+--------+ + + + + Encounter [...] [facility] [address] | Clarence Gutiérrez [place], | | | | | [place] | [place] [address] | | | | | Mailcode: [address] | [phone] | | | | | [facility] | | | | | | [address] [place], [place] | | | | | | [address] | | | | | | [phone] | | | +--------+---------+ + + + [...] Axel Gonzales MD - 03/06/2014 1:15 PM [facility] FOLLOW UP Attending: [...] a HIDA scan to be done in [place] to verify that she does not have [...] Surgery Resident Department of General Surgery Pager: [phone] I saw and evaluated the patient. I agree with the findings and the plan of care as dequan han in the resident s note. PRADIP STARR MD [facility] GENERAL SURGERY AT [facility] [address] [facility] Mailcode: [address] [place] [address] documented in this encoun ter Plan of Treatment +--------+ + + + + | Date | Type | Specialty | Care Team | Description | +--------+ + + + + | 05/13/ | Office | Plastic Surgery | Archie Ybarra MD | | | 2018 | Visit | | [address] | | | | | | [place], [place] | | | | | | [address] | | | | | | [phone] | | | | | | | [...] | | | | [place], [place] | | | | | | [address] | | | | | | [phone] | | | | | | | [...] [facility] | [address] | [place] [address] | | | SERVICES, [place] | [address] | | | + + + + + documented in this encounter Visit Diagnoses + + | Diagnosis | + + | Cholecystitis - Primary Cholecystitis, unspecified | + + documented in this encounter
--- OUTSIDE RECORDS SUMMARY | ~2019-05-10 | XMS | Encounter Summary ---
Demographics + + + | Address | [address] | | | [place] [address] | + + + | Home Phone [...] + | Katalina Padilla | ECON | [address] | | | | | [place], [place] | | | | | [address] | | + + + + + | Ellie Vang | ECON | Unknown | | + + + + + Care Team Providers + +------+ + | Care Pathology Collector Name | Role | Phone | [...] NISH EN | | 2017 | | [facility] | MD [address] | Y GASTRIC BYPASS | | | | Admitting Desk | [place], [place] | | | | | Located on the | [address] | | | | | floor [address] [facility] | [phone] | | | | | [address] | | | | | | [place], [place] | | | | | | [address] | | | +--------+---------+ + + + [...] Gavin ACNP - 03/03/2018 9:49 AM PDT [facility] RED SURGERY INPATIENT DISCHARGE SUMMARY Author: [...] to a bariatric full liquid diets. Our [facility] dietitian was consulted and they [...] at minimum. 5. Follow with PCP for Psychology Lecturer within 1 - 2 weeks of discharge [...] mg by mouth two times daily. CALCIUM CRB&QIY-M6-FOD52-GENIS ORAL Take 2 tablets by mouth two [...] yogurt or kefir. Zaria's Yogurt or Kefir, [place] Yogurt, and Bagels and Beann i Kinyarwanda Yogurt are common brands with beneficial probiotics. [...] are available over the counter at most [facility] stores. Nausea/Vomiting/Difficulty Swallowing Nausea/Vomiting/Difficulty swallowing: Could [...] hours per your instructions. Some medications, like Noxen, have Tylenol in it. Make sure you [...] (PCP) as this clinic does not provide [facility]. When to Call [...] hours by calling the surgery office at [phone]. - After hours, weekends and holidays, you may call the hospital locomotive operator at [phone] an d have the corporate communications manager Red Surgery Team paged. OTHER DISCHARGE [...] at minimum. 5. Follow with PCP for Psychology Lecturer within 1 - 2 weeks of discharge [...] Dept Phone Center 03/10/2018 1:30 PM [facility] at [facility] 6th Floor [phone] FO OD AND NUT 03/10/2018 3:05 PM Ronna Clarke Digestive [facility] at [facility] 6th Floor [phone] [facility] 04/01/2018 10:30 AM [facility] at [facility] 6th Floor [phone] FO OD AND NUT 04/01/2018 11:00 AM Ion Castanon Digestive [facility] at [facility] 6th Floor [phone] [facility] 05/27/2018 2:30 PM [facility] at [facility] 6th Floor [phone] FO OD AND NUT 05/27/2018 3:05 PM [facility] 6th Floor [phone] [facility] 05/27/2018 4:30 PM Demar Cueva [facility] at [facility] 15th Floor [phone] Comprehensiv 06/04/2018 10:35 AM Randell Franks Cardiology Preventive at [facility] [phone] Cardiology Discharging Physician: KAIN Agee Attending Physician: Ion Castanon MD [facility] Red Surgery Pager# [phone] 9:50 AM 03/03/2018 documented in this enco [...] | | 0 | | | | CRB&RHY-F4-DGL17-GEN | mouth two times | | | [...] date of discharge 03/03/18 PARTHA Calixto MS3 [facility] [employer] Demarcus Menon MD - [...] for care ride home (pt lives in [place]) Demarcus Alas M.D. General Surgery Resident PGY-1 Pager: [phone] Ion Ferrari MD - 10:00 AM PDTI [...] [address] | | | | | | [place], [place] | | | | | | [address] | | | | | | [phone] | | | | | | | [...] | | | | | [place], [place] | | | | | | [address] | | | | | | [phone] | | | | | | | [...] GASTRIC | ve | 8:31 AM | ([facility]) | | | BYPASS | Surgic | [...] - MARQUAM | [address] | [place], [place] | | | [facility] | [address] | [address] | | | TESTS | | | [...] AMES | [address] | [place], [place] | | | [facility] [facility] | [address] | [address] | | | TESTS | | | [...] MARQUAM | [address] | [place], [place] | | | [facility] | [address] | [address] | | | TESTS | | | [...] MARPATAM | [address] | [place], [place] | | | [facility] | [facility] | [address] | | | TESTS | | | [...] AMES | [address] | [place], [place] | | | [facility] | [address] | [address] | | | TESTS | | | [...] MARQUAM | [address] | [place], [place] | | | [facility] | [address] | [address] | | | TESTS | | | [...] KWAKU | [address] | [place], [place] | | | [facility] | [address] | [address] | | | TESTS | | | [...] (H) | 70 - 99 mg/dL | [facility] AMES | [address] | [place], [place] | | | [facility] | [address] | [address] | | | TESTS | | | [...] MARQUAM | [address] | [place], [place] | | | [facility] | [address] | [address] | | | TESTS | | | [...] - KWAKU | [address] | [place], [place] | | | [facility] | [address] | [address] | | | TESTS | | | [...] (H) | 70 - 99 mg/dL | [facility] AMES | [address] | [place], [place] | | | [facility] | [address] | [address] | | | TESTS | | | [...] MARQUAM | [address] | [place], [place] | | | [facility] | [address] | [address] | | | TESTS | | | [...] - KWAKU | [address] | [place], [place] | | | [facility] | [facility] | [address] | | | TESTS | | | [...] AMES | [address] | [place], [place] | | | [facility] | [address] | [address] | | | TESTS | | | [...] AMES | [address] | [place], [place] | | | [facility] | [address] | [address] | | | TESTS | | | [...] YAKOVAM | [address] | [place], [place] | | | [facility] | [facility] | [address] | | | TESTS | | | [...] (H) | 70 - 99 mg/dL | [facility] AMES | [address] | [place], [place] | | | [facility] | [address] | [address] | | | TESTS | | | [...] AMES | [address] | [place], [place] | | | [facility] [place] | [address] | [address] | | | TESTS | | | [...] KWAKU | [address] | [place], [place] | | | [facility] [place] | [facility] | [address] | | | TESTS | | | [...] (H) | 70 - 99 mg/dL | [facility] AMES | [address] | [place], [place] | | | [facility] | [address] | [address] | | | TESTS | | | [...] KWAKU | [address] | [place], [place] | | | [facility] [place] | [address] | [address] | | | TESTS | | | [...] - KWAKU | [address] | [place], [place] | | | [facility] | [facility] | [address] | | | TESTS | | | [...] AMES | [address] | [place], [place] | | | [facility] | [address] | [address] | | | TESTS | | | [...] KWAKU | [address] | [place], [place] | | | [facility] | [address] | [address] | | | TESTS | | | [...] KWAKU | [address] | [place], [place] | | | [facility] [place] | [facility] | [address] | | | TESTS | | | [...] (H) | 70 - 99 mg/dL | [facility] [...] AMES | [address] | [place], [place] | | | [facility] | [address] | [address] | | | TESTS | | | | + + + + + EGD (ESOPHAGOGASTRODUODENOSCOPY) (03/01/2018 11:21 AM PDT) + + + | Narrative | Performed At | + + + | Ion Castanon MD 03/01/2018 12:25 PM Date of Procedure: | | | 03/01/18 Primary Surgeon: Ion Castanon MD Co Surgeon or | | | engineer first assistant: Eldon Gonzalez MD, Chief Resident Alexx [...] The jejunum was divided with 60 mm Aguila stapler with white | | | load [...] created in each limb and a 60mm Aguila stapler | | | with white load was fired to create a hqma-sd-qlyf | | | jejunojejunostomy. The anastamosis was confirmed to be widely | | | patent and hemostatic. The common enterotomy was closed by placing | | | 2 stay sutures along the enterotomy for retraction and firing an | | | Aguila 60mm stapler with white load across the [...] | | | was entered. The 60mm Aguila stapler with blue load was placed | [...] blue load of the 60mm stapler. The Aguila was then fired | | | longitudinally towards the angle of His to create the gastric pouch, | | | leaving the gastrotomy from foreign body removal, on the pouch. | | | Dissection was performed retrogastric to connect posterior and | | | anterior dissection planes and ensure adequate fundus exclusion. | | | Additional fires of the Aguila stapler were performed with blue | | [...] with | | | 5 mm clip utility bill collection clerk. A 25mm Orvil was passed transorally by [...] was closed with 60mm | | | Aguila stapler with a white load. Medially and [...] was present | | | as my engineer first assistant for the entire procedure, given the technically | | | challenging nature of this procedure. She assisted in all critical | | | steps of the procedure. Dr. Gonzalez was present for endoscopy at the | | | end of the procedure. Ion Castanon MD, FACS, [facility] | | | Bariatric Surgery | | [...] MD Co Surgeon or | | | engineer first assistant: Eldon Gonzalez MD, Chief Resident lAexx | | | Akankshaolman MS4 Preoperative Diagnosis: [...] The jejunum was divided with 60 mm Aguila stapler with white | | | load [...] created in each limb and a 60mm Aguila stapler | | | with white load was fired to create a pzfr-pg-blxy | | | jejunojejunostomy. The anastamosis was confirmed to be widely | | | patent and hemostatic. The common enterotomy was closed by placing | | | 2 stay sutures along the enterotomy for retraction and firing an | | | Aguila 60mm stapler with white load across the [...] | | | was entered. The 60mm Aguila stapler with blue load was placed | [...] blue load of the 60mm stapler. The Aguila was then fired | | | longitudinally towards the angle of His to create the gastric pouch, | | | leaving the gastrotomy from foreign body removal, on the pouch. | | | Dissection was performed retrogastric to connect posterior and | | | anterior dissection planes and ensure adequate fundus exclusion. | | | Additional fires of the Aguila stapler were performed with blue | | [...] with | | | 5 mm clip utility bill collection clerk. A 25mm Orvil was passed transorally by [...] was closed with 60mm | | | Aguila stapler with a white load. Medially and [...] was present | | | as my engineer first assistant for the entire procedure, given the technically | | | challenging nature of this procedure. She assisted in all critical | | | steps of the procedure. Dr. Gonzalez was present for endoscopy at the | | | end of the procedure. Ion Castanon MD, FACS, [facility] | | | Bariatric Surgery | | + + + CAPILLARY BLOOD GLUCOSE (NO CHG), POC (03/01/2018 10:11 AM PDT) + +---------+ + + + | Component | Value | Ref Range | Performed | Pathologist | | | | | At | Signature | + +---------+ + + + | BLOOD | 161 (H) | 70 - 99 mg/dL | [facility] [...] + + + | NKECHI AMES | [address] | [place], [place] | | | [facility] [facility] | [address] | [address] | | | TESTS | | | [...]
--- OUTSIDE RECORDS SUMMARY | ~2019-05-10 | XMS | Encounter Summary ---
Demographics + + + | Address | [address] | | | [place] [address] | + + + | Home Phone [...] [place], [place] | | | | | [address] | | + + + + + | Ellie Vang | ECON | Unknown | | + + + + + Care Team Providers + +------+ + | Care Patient Transportation Driver Name | Role | Phone | + +------+ + | Fadi Goodrich DO | PCP | | + +------+ + Encounter Details +--------+------+ + + + | Date | Type | Department | Care Team | Description | +--------+------+ + + + | 08/28/ | Lab | Laboratory at [facility] | | Type 2 diabetes | | 2015 | | [address] | | mellitus (HCC) | | | | [place], [place] | | | | | | [address] | | | | | | [phone] | | | +--------+------+ + + + [...] [address] | | | | | | [place], [place] | | | | | | [address] | | | | | | [phone] | | | | | | | | +--------+ + + + + | 06/27/ | Telephone-S | Pre-operative | | | | 2019 | cheduled | Medicine | | | +--------+ + + + + | 06/30/ | Office | Cardiology | Randell Franks, | | | 2018 | Visit | [address] | | | | | | [address] [address], [place] | | | | | | [address] | | | | | | [phone] | | | | | | | [...] + + + + | [facility] | [address] | [place] [address] | | | SERVICES, CORE | PARK [...] [facility] | [address] | [place] [address] | | | SERVICES, SPECIAL | PARK [...]
--- OUTSIDE RECORDS SUMMARY | ~2019-05-10 | XMS | Encounter Summary ---
Demographics + + + | Address | [address] | | | [place] [address] | + + + | Home Phone [...] + | Katalina Padilla | ECON | [address] | | | | | [place], [place] | | | | | [address] | | + + + + + | Ellie Vang | ECON | Unknown | | + + + + + Care Team Providers + +------+ + | Care Estimator Jewelry Name | Role | Phone | + [...] from Patient; | | 2017 | | [address] | MD [address] | Postoperative | | | | Ave Mailcode: CH4S | [place], [place] | infection | | | | [facility] | [address] | | | | | and Healing, | [phone] | | | | | [place] [address] [facility] | | | | | | [place], [place] | | | | | | [address] | | | | | | [phone] | | | +--------+ + + + [...] 05/13/ | Office | Plastic Surgery | Arhcie Ybarra MD | | | 2018 | Visit | | [address] | | | | | | [facility] [place] | | | | | | [address] | | | | | | [phone] | | | | | | | | +--------+ + + + + | 06/27/ | Telephone-S | Pre-operative | | | | 2018 | cheduled | Medicine | | | +--------+ + + + + | 06/30/ | Office | Cardiology | Randell Franks, | | | 2018 | Visit | | [address] | | | | | | [place], [place] | | | | | | [address] | | | | | | [phone] | | | | | | | | +--------+ + + + + | 07/08/ | Procedure | Surgery | | | | 2019 | Pass | | | | +--------+ + + + + documented as of this encounter Visit Diagnoses Not on filedocumented in this encounter"
--- OUTSIDE RECORDS SUMMARY | ~2019-05-10 | XMS | Encounter Summary ---
Demographics + + + | Address | [address] | | | [place] [address] | + + + | Home Phone [...] [place], [place] | | | | | [address] | | + + + + + | Ellie Vang | ECON | Unknown | | + + + + + Care Team Providers + +------+ + | Care Copyholder Name | Role | Phone | + [...] Morbid | | 2018 | Visit | [place] [facility] [address] | [address] | obesity ([facility]), BMI | | | | [address] | [address] | 88 (Primary Dx); | | | | Mailcode: [place] | [place], [place] | Type 2 diabetes | | | | [facility] and | [address] | mellitus without | | | | Healing, [address] | | complication, with | | | | [place], [place] | | long-term current | | | | [address] | | use of insulin | | | | [phone] | | ([facility]); S/P gastric | | | | [...] Follow-Up Patient referred by: DO Vasyl [place] [id number] Documented time of visit: 1:30 to 2:00 (30 minutes jsgg-cy-upgg with patient) Surgery: Gastric Bypass Date of [...] rhinitis Anemia Anxiety Bipolar disorder ([facility]) Chronic wound infection of abdomen from 2010 Cough Depression Diverticulitis of colon Dizziness Glaucoma Heart burn Hemorrhoids Hernia of abdominal wall Incisional hernia, incarcerated 2012 Insomnia Irregular periods Kidney stone Leaking of urine Leg sore Lymphedema Morbid obesity with body mass index of 70 and over in adult ([facility]) Myalgia and myositis Nausea Neck pain Numbness Osteoarthritis of knee Palpitations Pneumonia Shortness of breath Staphylococcal infection Stroke ([facility]) TIA (transient ischemic attack) due to [...] multivitamin & mineral (with iron) supplement, 2/day -4684-1640 mg calcium citrate with vitamin D/day (take [...] in [address],[place] Pager# [phone] Phone: [phone] documented in this e ncounter Plan of Treatment +--------+ + + + + | Date | Type | Specialty | Care Team | Description | +--------+ + + + + | 05/13/ | Office | Plastic Surgery | Archie Ybarra MD | | | 2019 | Visit | | [address] | | | | | | [place], [place] | | | | | | [address] | | | | | | [phone] | | | | | | | [...] | | | | | [place], [place] | | | | | | [address] | | | | | | [phone] | | | | | | | [...] | [place] MNT RE-ASSESSMNT | Routin | 03/10/2018 | [...] of insulin ([facility]) | | | | | | S/P [...]
--- OUTSIDE RECORDS SUMMARY | ~2019-05-10 | XMS | Clinical Summary ---
Demographics + + + | Address | [address] | | | [place] [address] | + + + | Home Phone [...] | Author | [facility] | | | and Jeffana | + + + | Organization | [facility] | | | and Jeffana [...] Team Providers + +------+ + | Care Fermentation Scientist Name | Role | Phone | [...] 0 | | | Activ | | Cbhlwdw-Kseghrdli-Cr | mouth 2 times daily. | | [...] | + + + +---------+------+------+-------+ | thyroid (GLOBE CLEANER | GLOBE CLEANER Thyroid 30 mg | | 0 | [...] | 10/0 | Disco | | (NYSTATIN) [id number] | unit/gram topical | | | | [...] + + + | Overview: Problem List Senior Advocate Utility | + + + + + [...] qd x | | 30 October 2015 [facility] Assessment & Plan: Hgb appears to [...] obesityPickwickian syndrome | | Recent admission to [facility] for 100lb | | weight gain- DC on diuresis on 03/06/2016- she feel improvedShe | | was on Metolazone and Torsemide prior to hospitalization- both | | have better bioavailability than lasix in gut edema but she | | retained 100lbs - how ever she is currently on only Torsemide | | 100mg Q12hrs started in [place] and her weight been stable | | sinceShe has no other complaints.She is pending to see | | NephrologistEcho 02/16/2016([facility])- Normal LV systolic | | function, [...] morbid obesity, she is enrolled in the [facility] bariatric program. | | She has lost [...] tolerating well in the | | hospital-- [place] arranging for BiPAP upon d/c home to [facility] | | areaOverview: Cannot tolerate [...] + + + + | Overview: Overview: [facility] Assessment & Plan: Patient with | | [...] responded well to diuresis at | | [facility] (lost 60lb, down to 410), and then reaccumulated water | | weight on Torsemide and metolazone, which should be less effected | | by gut wall edema than Lasix. She has an appt with nephrology at | | [facility] on 03/17. Weight now 200kg (440lb, [...] Defer Metolazone to her | | outpatient Calendering Supervisor or Restaurant Lead- Will continue KCL | | supplementation at 60meq QID despite the spironolactone as she | | remains on the low side- Encourage daily weights at home with a | | log; she should contact her PCP, Calendering Supervisor or Restaurant Lead for | | a 10lb weight gain [...] +--------+ + + + + | 04/28/ Office | Cardiology | Sulema Altamirano | [...] | | Sulema Altamirano | | | 2018 | | | URBANO PopeP | | +--------+ + + + + | 02/17/ | Orders Only | | Provider, | Pure | | 2018 | | | Kaiser MD | hyperglyceridemia; | | | | | | Hypokalemia; | | | | | | Dehydration; | | | | | | Hyperuricemia | | | | | | without signs of | | | | | | inflammatory | | | | | | arthritis and | | | | | | tophaceous disease; | | | | | | Essential (primary) | | | | | | hypertension | +--------+ + + + + | 02/15/ | Office | Gastroenterology | [facility], | Fatty infiltration | | 2019 | Visit | | SELINA Montes | of liver (Primary | | | | | | Dx); History of | | | | | | Frandy-en-Y gastric | | | | | | bypass; Itching; | | | | | | Diarrhea, | | | | | | unspecified type | +--------+ + + + + from [...] Height | 147.3 cm (4' 10") | 04/28/20196 PDT | + + + + | Body Mass Index | 56.81 | 04/28/20191255 PDT | + + + + Plan of Treatment + + + + + | Health Maintenance | Due Date | Last Done | Comments | + + + + + | Urine Drug Screening | | | | | | 3 | | | + + [...] | | | | | by [facility] [place] Read Only, | | | | | | [facility] [place] ([id number]), | | | | | | market editor Glen Alberto | | | | | | ([id number]) on 04/28/2019 | | | | | [...] | | | + +---------+ + + ECHO Interpretation of Outside Films [...] 0.61 m/s | | | MV Dec Gregg: 2.43 m/s2 MV DecT: 247.51 ms MV E Jeffrey: | | | 0.60 m/s MV E/A Ratio: 0.98 MV PHT: 71.78 ms MVA By | | | PHT: 3.06 cm2 Septal e': 0.06 m/s Septal E/e': 9.54 | | | Lateral e': 0.10 m/s Lateral E/e': 5.84 RAP: 5 mmHg RV | | | s': 0.11 m/s Lumber Handler: JESSICA Authenticated by: Darryl | | | Desirae Report Date/Time: 02-22-2019 20:8:36 | | + [...] cmLVIDd: 4.70 cmLVPWd: 0.79 cmLVOT Area: 3.58 mr7IUQG Diam: 2.13 cm%FS: 39.25 | | %EF(Teich): [...] | Index (A-L): 14.72 ml/m2LAAs A2C: 10.03 [id number] A-L A2C: 22.69 mlLALs A2C: 3.76 | | cmLAAs A4C: 13.41 [id number] A-L A4C: 36.80 mlLALs A4C: 4.14 cmRAAs: 11.18 | | ty7VXKFC A-L: 22.84 mlRAESV MOD: 22.10 mlRALs: 4.64 cmTAPSE: 2.04 cmAV maxPG: | | 6.55 mmHgAV meanP.52 mmHgAV Vmax: 1.27 m/Genesis Vmean: 0.88 m/Genesis VTI: 26.50 | | cmAVA Vmax: 2.49 cm2AVA (VTI): 2.39 [id number] Vmax: 0.00 cm2/m2AVAI (VTI): 0.00 | | cm2/m2LVOT maxP.17 mmHgLVOT meanP.82 mmHgLVSI Dopp: 30.83 ml/m2LVSV Dopp: | | 63.52 mlLVOT Vmax: 0.89 m/sLVOT Vmean: 0.65 m/sLVOT VTI: 17.71 cmMV A Jeffrey: | | 0.61 m/sMV Dec Gregg: 2.43 m/s2MV DecT: 247.51 msMV E Jeffrey: 0.60 m/sMV E/A Ratio: | | 0.98MV PHT: 71.78 msMVA By PHT: 3.06 jq2Dqgclw e': 0.06 m/sSeptal E/e': | | 9.54Lateral e': 0.10 m/sLateral E/e': 5.84RAP: 5 mmHgRV s': 0.11 m/s | | Lumber Handler: HONEYuthenticated by: Darryl Patelort Date/Time: 02-22-2019 20:8:36 | | IMPRESSION: 1. [...] A Jeffrey: 0.61 m/s | |MV Dec Gregg: 2.43 m/s2 | |MV DecT: 247.51 ms | |MV E Jeffrey: 0.60 m/s | |MV E/A Ratio: 0.98 | |MV PHT: 71.78 ms | |MVA By PHT: 3.06 cm2 | |Septal e': 0.06 m/s | |Septal E/e': 9.54 | |Lateral e': 0.10 m/s | |Lateral E/e': 5.84 | |RAP: 5 mmHg | |RV s': 0.11 m/s | | | |Lumber Handler: JESSICA | |Authenticated by: Darryl Merrill | [...] | [employer] | MODA | [id number] | 10/28/19 | [phone] | | [employer] | | MEDICAID HMO | HEALTH | | 19-Pre | 1 | | id | | | MDCD | | sent | | | | | | [place] | | | | | | + +--------+ +--------+ +---------+--------+ | [employer] | MODA | [id number] | | [phone] | | Medica | | MEDICAID HMO [...] [place] | | | 3 (Home) | [address] | + +--------+ +--------+ + + | Elzbieta Cristina | Person | Self | [birth year] | [address] | | | al/Fam | | 1974 | [phone] | [place], [place] | | | mireya | | | 3 (Home) | [address] | + +--------+ +--------+ + + Advance Directives Patient has advance care planning documents on file. For more information, please contact:[facility] [place] [address]
--- OUTSIDE RECORDS SUMMARY | ~2019-05-10 | XMS | Encounter Summary ---
Demographics + + + | Address | [address] | | | [place] [address] | + + + | Home Phone [...] + | Katlaina Padilla | ECON | [address] | | | | | [place], [place] | | | | | [address] | | + + + + + | Ellie Vang | ECON | Unknown | | + + + + + Care Team Providers + +------+ + | Care Sliver Handler Name | Role | Phone | [...] | | | | | | [place] [address] | | | +--------+ + + + [...] 2018 | Visit | | [address] | | | | | | [place], [place] | | | | | | [address] | | | | | | [phone] | | | | | | | [...] | | | | | [place], [place] | | | | | | [address] | | | | | | [phone] | | | | | | | | +--------+ + + + + | 07/08/ | Procedure | Surgery | | | | 2018 | Pass | | | | +--------+ + + + + documented as of this encounter Visit Diagnoses Not on filedocumented in this encounter"
--- OUTSIDE RECORDS SUMMARY | ~2019-05-10 | XMS | Encounter Summary ---
Demographics + + + | Address | [address] | | | [place] [address] | + + + | Home Phone [...] [place], [place] | | | | | [address] | | + + + + + | Ellie Vang | ECON | Unknown | | + + + + + Care Team Providers + +------+ + | Care It Compliance Analyst Name | Role | Phone | [...] Encounter, Provider, | | | | | [facility] | MD [address] | | | | | [address] | [place] [address] | | | | | Mailcode: OC2L | | | | | | [facility] | | | | | | and Healing, | | | | | | Building [address] | | | | | | [place], [place] | | | | | | [address] | | | | | | [phone] | | | +--------+ + + + [...] Flannery | | | | | | [place], [place] | | | | | | [address] | | | | | | [phone] | | | | | | | [...] | | | | | [place] [address], [place] | | | | | | [address] | | | | | | [phone] | | | | | | | [...] + | MRN: | [facility] | | [id number] Date: 04/07/2019Patient Name: Elzbieta Curtis #: | ENDOSCOPY | | [id number] of : 1975CSN: [id number] Type: | | | AmbulatoryRoom: Endo 5Procedure: Upper GI | | | endoscopyIndications: Generalized abdominal pain, Nausea | | | with vomitingProviders: TAL LUND MD | | | (Doctor), BERNARDO BERNARD RN (Nurse), | | | EREN SLATER (Data Processing Equipment Repairer)Referring MD: SYLVIA Kilpatrick | | | Mela [...] | | | The Olympus [id number] Endoscope #[id number] | | | was introduced through the [...]
--- OUTSIDE RECORDS SUMMARY | ~2019-05-10 | XMS | Encounter Summary ---
Demographics + + + | Address | [address] | | | [place] [address] | + + + | Home Phone [...] [place], [place] | | | | | [address] | | + + + + + | Ellie Vang | ECON | Unknown | | + + + + + Care Team Providers + +------+ + | Care Burrer Marker Axle Name | Role | Phone | + [...] | | [address] | Ave [place], [place] | | | | | Mailcode: [place] | [address] | | | | | for Health and | [phone] | | | | | [facility] 2 | | | | | | [facility] [place] | | | | | | [address] | | | | | | | [...] | | | | | | [place], [place] | | | | | | [address] | | | | | | [phone] | | | | | | | [...] | | | | | [address] [place], [place] | | | | | | [address] | | | | | | [phone] | | | | | | | | +--------+ + + + + | 07/08/ | Procedure | Surgery | | | | 2018 | Pass | | | | +--------+ + + + + documented as of this encounter Visit Diagnoses Not on filedocumented in this encounter"
--- OUTSIDE RECORDS SUMMARY | ~2019-05-10 | XMS | Clinical Summary ---
Demographics + + + | Address | [address] | | | [place] [address] | + + + | Home Phone [...] + + + | Author | [facility] | + + + | Organization | [facility] | + + + [...] [place], [place] | | | | | [address] | | + + + + + | Ellie Vang | ECON | Unknown | | + + + + + Care Team Providers + +------+ + | Care Manager Patient Name | Role | Phone | + +------+ + | Kenyatta Cardenas MD | PCP | | + +------+ + Source Comments [facility] & Counts include 234 beds at the [facility] Allergies + + + + + + | Active Allergy | Reactions | Severity | Noted | Comments | | | | | Date | | + + + + + + | Amoxicillin | Unknown | | 05/13/19 | | | | [...] 0 | | | Activ | | CRB&YZT-E2-VFI97-GEN | mouth two times | | | [...] +---------+------+------+-------+ | atenolol 25 mg | Take 50 mg by mouth | | 0 | 11/1 | | Activ | | oral tablet | once daily. | | | 02/12 | | [...] + + + +---------+------+------+-------+ | | Take by mouth. | | 0 | | | Activ | | FA/mv,Ca,iron,min/ly | | | | | | e | | leonid/jimenat | | | | [...] | + + + +---------+------+------+-------+ | PARoxetine 10 mg | Take 40 mg by mouth | | 0 | | | Activ | | oral tablet | once daily. | | | | | e | + + + +---------+------+------+-------+ | ergocalciferol | Take 1 capsule by | | 0 | 11/0 | | Activ | | (VITAMIN D2) 50,000 | mouth every seven | | | 9/20 | | e | | unit oral capsule | days. | | | 18 | | | + + + +---------+------+------+-------+ | BELBUCA 600 mcg | | | 0 | 03/0 | | Activ | | buccal film | | | | 02/12 | | e [...] | + + + +---------+------+------+-------+ | pramipexole 0.125 | Take 0.125 mg by | | 0 | | | Activ | | mg oral tablet | mouth. | | | | | e | + + + +---------+------+------+-------+ | potassium chloride | Take 20 mEq by mouth | | 0 | | | Activ | | 20 mEq oral packet | two times daily. | | | | | e | + + + +---------+------+------+-------+ | CYANOCOBALAMIN | by injection route | | 0 | | | Activ | | (VITAMIN B-12) INJ | every thirty days. | | | | | e | + + + +---------+------+------+-------+ | nystatin 100,000 | Apply to affected | 30 g | 0 | 09/24 | | Activ | | unit/gram topical | area two times | | | 04/15 | | e | | powderIndications: | daily. Apply to | | | 19 | | | | Intertriginous | candidal lesions | | | | | | | candidiasis | until lesions have | | | | | | | | healed. | | | | | | + + + +---------+------+------+-------+ +---+ + | | Additional | | | informationPatient | | | not taking. Reported | | | on 05/05/2019 1:00 | | | PM | +---+ + + + +---------+---+------+---+-------+ | ascorbic acid | Take 1 tablet by | 90 | 1 | 09/25 | | Activ | | (vitamin C) (VITAMIN | mouth once daily. | tablet | | 01/13 | | e | | C) 500 mg oral | | | | 19 | | | | tablet | | | | | | | + + +---------+---+------+---+-------+ | Ferrous Gluconate | Take 1 tablet by | 90 | 1 | 03/2 | | Activ | | 324 mg total salt | mouth once daily. | tablet | | /20 | | e | | (36 mg elemental | | | | 19 | | | | iron) oral tablet | | | | | | | + + +---------+---+------+---+-------+ | topiramate 50 mg | Take 1 [...] | | | + + +---------+---+------+---+-------+ | phentermine 37.5 | Take 1 tablet by | 90 | 1 | 07/2 | | Activ | | mg oral tablet | mouth once daily in | tablet | | 3/20 | | e | | | the morning. | | | 19 | | | | | Administer before | | | | | | | | breakfast. | | | | | | + + +---------+---+------+---+-------+ | omeprazole 20 mg | Take 1 capsule by | 30 | 1 | 08/0 | | Activ | | oral capsule,delayed | mouth once daily. | capsule | | 6/20 | | e | | release(DR/EC) | Administer 30 to 60 | | | 19 | | | | | minutes before meals | | | | | | + + +---------+---+------+---+-------+ Active Problems + + + | Problem [...] | 05/05/ | Office | Surgery | Chilo, | Ventral hernia | | [...] | Gastroenterology | Transcribe | | | 2019 | Orders | | Encounter, Provider, | | | | | | MD | | +--------+ + + + + | 03/15/ | Telephone | Surgery | Keren Allen, | | | 2018 | | | AGACNP [...] + + + + | 03/02/ | Manager Statistical Programming | Surgery | Keren Allen, | | | 2018 | | | AGACNP | | +--------+ + + + + | 03/01/ | Office | Surgery | Keren Allen, | History of Frandy-en-Y | | 2018 | Visit | | AGACNP | gastric [...] Procedure | Radiology | | | | 2018 | Pass | | | | +--------+ + + + + | 03/01/ | Travel | | | | | 2018 | | | | | +--------+ + + + + | 02/15/ | Telephone | Cardiology | Randell Franks, | Other (pt need a | | 2018 | | | MD | re-test? ) | +--------+ + + + + | 02/15/ | Refill | Cardiology | Randell Franks, | Refill Request | | 2018 | | | MD | (PHENTERMINE 37.5 mg | | | | | | oral tablet); | | | | | | Refill Request | +--------+ + + + + from [...] Flannery | | | | | | [place] | | | | | | [address] | | | | | | [phone] | | | | | | | [...] [place] | | | | | | [address] | | | | | | [phone] | | | | | | | [...] + + + | Creatinine | | 03/01/2019, 10/12/2018, | | | | 0 | 05/27/2018, Additional history | | | | | [...] - | | | | | | /[id number] | | [id number]: Qty: 1 on | | | | | | 525 | | 03/01/2018 by Ion Pandey | | | | | | | | MD Vinicius at [facility] | | | | | [...] - | | | | | | /[id number] | | [id number]: Qty: 1 on | | | | | | 173 | | 03/01/2018 by Ion Pandey | | | | | | | | MD Vinicius at [facility] | | | | | [...] + + + | X-RAY UGI WO KUB | Routin | 03/22/2019 | History of [...] + + from Last 3 Months Results EGD (04/07/2019 10:53 AM PDT) + + | Specimen | + + | | + + + + + | Narrative | Performed At | + + + | MRN: | [facility] | | [id number] Date: 04/07/2019Patient Name: Elzbieta Curtis #: | ENDOSCOPY | | [id number] of : 1975CSN: [id number] Type: | | | AmbulatoryRoom: Endo 5Procedure: Upper GI | | | endoscopyIndications: Generalized abdominal pain, Nausea | | | with vomitingProviders: TAL MCNEIL MD | | | (Doctor), BERNARDO BERNARD RN (Nurse), | | | GENECREST SLATER (Orthotic Assistant)Referring MD: KEREN Kilpatrick | | | RASTA ALLENCNPRequestdonya Provider: Medicines: | | | Midazolam 8 [...] | | | The Olympus GIF-[id number] Endoscope #[id number] | | | was introduced through the [...] + +---------+ + + X-RAY UGI WO JOSÉ LUISB (03/22/2019 11:04 AM PDT) + + | [...] Note | + + | Service Account, Enhanced Medical Decisions Res In Interface - 03/22/2019 1:04 PM [...] [facility] | [address] | [place] [address] | | | SERVICES, LYDIA | CLARENCE [...] | | | | | determined by [facility] | | | | | | Laboratories. See | | | | | | Compliance Statement B: | | | | | | Digidentity.Tagasauris/CSPerformed | | | | | | by [email or web address],[address] | | | | | | [address] [place], [place] | | | | | | [address] | | | | | | [phone].Digidentity. | | | | | | comIsmael [...] [facility] | [address] | [place], [place] | | | UNIV PTH - INTFC | | [address] | | + + + + + [...] [facility] | [address] | [place] [address] | | | SERVICES, CORE | CLARENCE [...] | + + + + + | Trove | [address] | [place] [address] | | | SERVICES, CORE | CLARENCE [...] | | | | | determined by [facility] | | | | | | Laboratories. See | | | | | | Compliance Statement B: | | | | | | Digidentity.Tagasauris/CSPerformed | | | | | | by [email or web address] | | | | | | [facility] | | | | | | [address] | | | | | | [phone].FriendCodelab. | | | | | | Ismael [...] [facility] | [address] | [place], [place] | | | UNIV PTH - INTFC | | [address] | | + + + + + [...] [facility] | | | (YEN NOAH) | [facility],[address] | | REG UNIV | | | SERUM | [facility] | | PTH - INTFC | | | | [address] | | | | | | [phone].FriendCodelab. | | | | | | Ismael [...] B: | | | | | | Digidentity.Tagasauris/CS | | | | + + + + + + + + | Specimen | + + | Blood - Blood | | (substance) | + + + + + + + | Performing | Address | City/State/Zipcode | Phone Number | | Organization | | | | + + + + + | [facility] | [address] | [place], [place] | | | UNIV PTH - INTFC | | [address] | | + + + + + [...] INTFC | | | | determined by [employer] | | | | | | [employer]. See | | | | | | Compliance Statement B: | | | | | | Digidentity.Tagasauris/CSPerformed | | | | | | by [email or web address] | | | | | | [place] [facility] [place] | | | | | | [address] | | | | | | [phone].Digidentity. | | | | | | comIsmael [...] [facility] | [address] | [place], [place] | | | UNIV PTH - INTFC | | [address] | | + + + + + [...] [facility] | [address] | [place] [address] | | | SERVICES, SPECIAL | PARK [...] | | | LABORATORY | | | RUSSIAN | | | SERVICES, | | | [...] equation recommended by the National | [facility] | | Kidney Disease Education Program. Estimated [...] [facility] | [address] | [place] [address] | | | SERVICES, CORE | PARK [...] B: | | | | | | Digidentity.Tagasauris/CSPerformed | | | | | | by [email or web address] | | | | | | [place], [facility] [place] | | | | | | [address] | | | | | | [phone].FriendCodelab. | | | | | | comIsmael [...] [facility] | [address] | [place], [place] | | | UNIV PTH - INTFC | | [address] | | + + + + + [...] | + + + + + | [facility] | [address] | [place] [address] | | | LYDIA RANGEL | CLARENCE [...] [facility] | [address] | [place] [address] | | | SERVICES, CORE | PARK [...] | + + + + + | Trove | [address] | [place] [address] | | | SERVICES, CORE | CLARENCE [...] | + + + + + | [email or web address] | [address] | [place] [address] | | | SERVICES, CORE | CLARENCE [...] | | | | | determined by [facility] | | | | | | Laboratories. See | | | | | | Compliance Statement B: | | | | | | Digidentity.com/CSPerformed | | | | | | by [facility],[address] | | | | | | [address] [facility] [place] | | | | | | [address] | | | | | | [phone].FriendCodelab. | | | | | | comIsmael [...] [facility] | [address] | [place], [place] | | | UNIV PTH - INTFC | | [address] | | + + + + + [...] | | | + +--------+ +--------+-------+---------+--------+ | HELP DESK ENGINEER MEDICAID | HELP DESK ENGINEER | xxxxxxxx | | | | Medica [...] mireya | | | 3 (Home) | [address] | + +--------+ +--------+ + + Advance Directives + + + + + | Code Status | Date | Date | Comments | | | Activated | Inactivated | | + + + + + | Full Code | 03/01/2018 | 03/03/2018 | | | | 6:09 AM | 7:35 PM | | + + + + [...] 8:45 PM | | + + + +---+ + + + +---+ | | | | | + + + +---+ | Full Code | 02/07/2014 | 02/08/2014 | | | | 3:31 AM | 10:41 PM | | + + + +---+
--- OUTSIDE RECORDS SUMMARY | ~2019-05-10 | XMS | Encounter Summary ---
Demographics + + + | Address | [address] | | | [place] [address] | + + + | Home Phone [...] Author | [facility] | | | and Jeffana | + + + | Organization | [facility] | | | and Jeffana | [...] Providers + +------+ + | Care Roll Scale Man Name | Role | Phone | [...] | Services | Disease | Chronic | Karin, | [facility] | | | Required | | diastolic | DIRECTOR APPOINTMENT [address] | SLEEP | | | | | heart | PAYAL GASTON | DISORDERS LAB | | | | | failure | DM[address] | [address] | | | | | (HCC) | [place], [place] | [address] | | | | | History of | [address] | [place], [place] | | | | | sinus | Phone: | [address] | | | | | tachycardia | [phone] | Phone: | | | | | History of | Fax: | [phone] | | | | | bariatric | [phone] | Fax: | | | | | surgery | | [phone] | | | | | Sleep apnea [...] + + | 04/28/ | Office | [facility] | Sulema Altamirano | Chronic diastolic | | 2019 | Visit | CARDIOLOGY [place] | [address] | heart failure (HCC) | | | | [address] | [place] | (Primary Dx); | | | | [address] | [place] [address] | History of sinus | | | | [place], [place] | [phone] | tachycardia; History | | | | [address] | | of stroke; HTN, | | | | [phone] | | goal below 130/80; | | [...] | 147.3 cm (4' 10") | 04/28/2019 1256 PDT | + + + + | Body Mass Index | 56.81 | 04/28/2019 1256 PDT | + + + + documented in this encounter Patient Instructions Patient Instructions Sulema [place]am[place]ano FNP - 04/28/2019 13:00 PDTI have referred you to Dr. 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 Fu, and SELINA Escobar. Her current [...] today that she never heard from the [place] [facility] providers to her sup posed [...] surgery, and weight down 123 pounds since [facility] 2018 when weighed 394 lbs. She brought all [...] by Dr. Franks, endocrin ologist at [facility]) . Denies excessive thirst or hunger. Psychiatric/Behavioral: [...] knee pain and hernia pain Lives in [facility] ith her mother who smokes. . Sister is neonatal intensive care unit nurse. Grandchildren ages 4 and 7 live with he r daughter and son-in-law. Disabled , on disability .01/24/2019: working with [employer] to get her own place. Outpatient Medications [...] film Suboxone 2 mg-0.5 mg sublingual film Rvuezqw-Gbzbbfcai-Oaxvrye D (CITRACAL CALCIUM+D PO) Take 2 tablets [...] Pen Needle (NOVOFINE) 32G X 6 MM [facility] Novofine 32 32 gauge x 1/4" needle [...] monohydrate/macrocrystals 100 m g capsule nystatin (NYSTATIN) 534647 UNIT/GM powder Nyamyc 100,000 unit/gram topical powder [...] Take 30 mg by mouth Daily. thyroid (PHOTOGRAPHIC EQUIPMENT MECHANIC THYROID) 30 mg tablet PHOTOGRAPHIC EQUIPMENT MECHANIC Thyroid 30 mg tablet TAKE ONE TABLET [...] Ascending aorta not well seen Echo: 02/16/2017: ([facility]): normal EF of 60-65% , accurate assessment of diastolic function i mpeded by poor tissue doppler, RV normal in size and function, with no significant valvular disease, and aortic root, ascending aorta , and aortic arch normal Echo: 01/02/2016 ([facility]): TDS, cardiac chamber dimensions grossly NML, LVEF >70%, rodriguez tolic function normal for patient. Unable to assess segmental wall motion. RV grossly norm al. Aortic valve sclerotic, no As/AI. Mitral and tricuspid valves grossly normal. Trace T R. No pericardial effusion VASCULAR TESTING AND PROCEDURES Left lower extremity DVT, presumed PE: 10/2015 [facility]. treated with heparin drip and Coumadin 10 in hospital, with Coumadin 6 months as outpatient, ASA 81 mg continued Venous US: right leg, 04/28/2016: No evidence of DVT. EKG EKG 10/27: ([facility]) Normal sinus rhythm. Normal EKG. Rate 93 bpm, DE 172 ms, QRS 90 ms, QTC 465 ms personally reviewed by me in the office today) EK02/05: Sinus tachycardia, otherwise normal. Rate 160 bpm, DE 174 ms, QRS 74 ms, QTC 451 ms (personally reviewed by me in the office today and no significant change seen fro m EKG done in October 2016 except for faster heart rate) EK04/26/2018: Normal sinus rhythm, rate 74 bpm, DE 182 ms, QRS 96 ms, QTC 472 ms, alexandru genao personally reviewed by me, and compared to previous EKG, heart rate is now better controll ed, otherwise similar morphology EK04/28/2019: Normal sinus rhythm, right axis. Rate 74 bpm, DE 170 ms, QRS 88 ms, QTC 45 [...] heard from the sleep providers at the [place] [facility] in [place], so I have referred her again to Dr. Rascon at the [place] [facility], and she ne eds [...] Placed This Encounter Procedures Ambulatory Referral to [facility] Pulmonology- Sleep study as well ECG 12 [...] past surgical history. Problem list. Maryse MARKS [facility] Cardiology 04/28/2019 documente d in this encounter Plan of Treatment + +--------+ + + | Name | Priori | Associated Diagnoses | Order Schedule | | | ty | | | + +--------+ + + | Ambulatory Referral to [facility] | Routin | Chronic diastolic | Ordered: [...] | | | | | by [facility] [place] Read Only, | | | | | | [facility] [place] ([id number]), | | | | | | city editor [place]to | | | | | | ([phone]) on 04/28/2019 | | | | | [...]
--- OUTSIDE RECORDS SUMMARY | ~2019-05-10 | XMS | Encounter Summary ---
Demographics + + + | Address | [address] | | | [place] [address] | + + + | Home Phone [...] [place], [place] | | | | | [address] | | + + + + + | Ellie Vang | ECON | Unknown | | + + + + + Care Team Providers + +------+ + | Care Electrical Helper Name | Role | Phone | [...] [address] | | | | | [facility] at [facility] [address] [place], [place] | | | | | [facility] | [address] | | | | | Mailcode: Center | [phone] | | | | | for Health and | | | | | | [facility] [address] | | | | | | [place], [place] | | | | | | [address] | | | | | | [phone] | | | +--------+ + + + [...] | | | | | | [place], [place] | | | | | | [address] | | | | | | [phone] | | | | | | | [...] | | | | | [address] [place], [place] | | | | | | [address] | | | | | | [phone] | | | | | | | | +--------+ + + + + | 07/08/ | Procedure | Surgery | | | | 2018 | Pass | | | | +--------+ + + + + documented as of this encounter Visit Diagnoses Not on filedocumented in this encounter"
--- OUTSIDE RECORDS SUMMARY | ~2019-05-10 | XMS | Encounter Summary ---
Demographics + + + | Address | [address] | | | [place] [address] | + + + | Home Phone [...] [place], [place] | | | | | [address] | | + + + + + | Ellie Vang | ECON | Unknown | | + + + + + Care Team Providers + +------+ + | Care Medical Practice Manager Name | Role | Phone [...] | | | | | (HCC) | [place], [place] | Mailcode: | | | | | Procedures | [address] | [address] [facility] | | | | | CT ABDOMEN & | Phone: | Hospital | | | | | [address] | | [place], [place] | | | | | IV CONTRAST | Fax: | [address] | | | | | [place] [address] | [phone] | Phone: | | | | | ABDOMEN&PELV | | [phone] | | | | | IS | | Fax: | | | | | W/CONTRAST | | [phone] | | | | | See chart [...] | | | | | | [address] | | | | | | | [address] | | | | | | | Mailcode: | | | | | | | [facility] | | | | | | | Health and | | | | | | | Healing, | | | | | | | Building [address] | | | | | | | [place], [place] | | | | | | | [address] | | | | | | | Phone: | | | | | | | [phone] | | | | | | | Fax: | | | | | | | [phone] | +--------+--------+ + + + + Encounter [...] | | [address] | Ave [place], [place] | obesity (HCC) | | | | Mailcode: [place] | [address] | | | | | for Health and | [phone] | | | | | [facility] [address] | | | | | | [place], [place] | | | | | | [address] | | | | | | [phone] | | | +--------+---------+ + + + [...] up in th e air, Use a chairman and chief executive officer.... And get it really dry. Then use corn starch ..... Then use medicated powder... Please go to the 3rd floor for the study... [place] [address] documented in this encounter Progress Notes Shereen Pinto ACNP - 10/02/2014 11:14 AM PDTFormatting of this note might be different fro m the original. BARIATRIC INITIAL VISIT Provider: Shereen Pinto DNP, ACNP, LUMBER SORTER Referring Provider: Dr. Goodrich Reason for Requested [...] authorization then schedule with the surgeon. Shereen Pinot DNP, ACNP, LUMBER SORTER Nurse Practitioner for Bariatric Surgery [facility] | [address] | [place], [place] | [address] | Potential Contraindications to Bariatric Surgery Age [...] | | 2018 | Visit | | [address] | | | | | | [place], [place] | | | | | | [address] | | | | | | [phone] | | | | | | | [...] | | | | | [address] [place], [place] | | | | | | [address] | | | | | | [phone] | | | | | | | [...]
--- OUTSIDE RECORDS SUMMARY | ~2019-05-10 | XMS | Encounter Summary ---
Demographics + + + | Address | [address] | | | [place] [address] | + + + | Home Phone [...] + | Katalina Padilla | ECON | [address] | | | | | [place], [place] | | | | | [address] | | + + + + + | Ellie Vang | ECON | Unknown | | + + + + + Care Team Providers + +------+ + | Care Director Human Services Name | Role | Phone | [...] | | | | Mailcode: Center | [place], [place] | with insulin therapy | | | | for Health and | [address] | (HCC) | | | | [facility] 2 | [phone] | | | | | [place], [place] | | | | | | [address] | | | | | | [phone] | | | +--------+---------+ + + + [...] of Visit: 1:30 to 1:55 (25 minutes vutv-am-qhfx with patient). Pt seen tog ether with Rossana Espinoza RD (training) SUBJECTIVE: Working with RN to get access to [place] water exercises. States she was down to 374lbs by following LRD but with complications (n/v, fainting) - need to obtain records from PCP [facility]. Food Allergies: No Current Physical Activity: Nothing - plans to start swimming this week Diet Recall [place] (100kcal) + Activia Light - 60kcal Atkins [...] post-surgery diet progression. 4. Call or send [employer] [email or web address]) message to dietitian with any questions. Contact information was provided. Follow up with dietitian via telephone 1 week after beginning water exercises for weight ch addie. Yuli Childs RD, [facility], [facility] Pager# [phone] Rossana Espinoza MS, RD Pgr #[phone] documented in this enco unter Plan of Treatment +--------+ + + + + | Date | Type | Specialty | Care Team | Description | +--------+ + + + + | 05/13/ | Office | Plastic Surgery | Archie Ybarra MD | | | 2018 | Visit | | [address] | | | | | | [place], [place] | | | | | | [address] | | | | | | [phone] | | | | | | | [...] | | | | | [place], [place] | | | | | | [address] | | | | | | [phone] | | | | | | | [...] | PA MNT RE-ASSESSMNT | Routin | 12/27/2014 | Morbid obesity | | | X15MIN | e | 8:17 AM | ([facility]) Diabetes | | | | | PDT | mellitus with | | | | | | insulin therapy | | | | | | ([facility]) | | + +--------+ + + + documented in this encounter Visit Diagnoses + + | Diagnosis | + + | Morbid obesity ([facility]) - Primary Morbid obesity | + + | Diabetes mellitus with insulin therapy (HCC) | + + documented in this encounter
--- OUTSIDE RECORDS SUMMARY | ~2019-05-10 | XMS | Encounter Summary ---
Demographics + + + | Address | [address] | | | [place] [address] | + + + | Home Phone [...] [place], [place] | | | | | [address] | | + + + + + | Ellie Vang | ECON | Unknown | | + + + + + Care Team Providers + +------+ + | Care Waste Cotton Cleaner Name | Role | Phone | [...] | | [address] | Ave [place], [place] | (Primary Dx); | | | | Mailcode: Center | [address] | Ventral hernia | | | | for Health and | [phone] | without obstruction | | | | Healing, Building 2 | | or gangrene; Mixed | | | | [place], [place] | | hyperlipidemia; | | | | [address] | | 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[phone] | | type 2 without | | [...] is doing Refill oxycodone Rx +Take acid bleach mixer for first 3 mos, then wean off [...] POC and will call or [facility] if any issues. documented in this [...] times daily. , Disp: , Rfl: CALCIUM [id number] ORAL, Take 2 tablets by mouth two [...] History Narrative Updated 11/09/15 She lives in [place] with her mother and her sister (also her caregiver) lives in an apa rtment/duplex below. 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 [...] to POC and will call [facility] if any issues. Start time 15:35, end time 15:55. I spent a total of 20 minutes face to face with this pat ient. Over 50% of visit was in counseling. ~ 10 minutes of additional time spent reviewing chart prior to visit and documenting after this visit. Ronna Clarke DNP ACNP INFORMATION SYSTEMS OPERATOR Bariatric Surgery Nurse Practitioner [facility] | [address] | [place], [place] | [address] | documented in this e ncounter Plan of Treatment +--------+ + + + + | Date | Type | Specialty | Care Team | Description | +--------+ + + + + | 05/13/ | Office | Plastic Surgery | Archie Ybarra MD | | | 2018 | Visit | | [address] | | | | | | [place], [place] | | | | | | [address] | | | | | | [phone] | | | | | | | | +--------+ + + + + | 06/27/ | Telephone-S | Pre-operative | | | | 2018 | cheduled | Medicine | | | +--------+ + + + + | 06/30/ | Office | Cardiology | Randell Franks, | | | 2019 | Visit | | [address] | | | | | | [place] [facility] [place] | | | | | | [address] | | | | | | [phone] | | | | | | | [...] + | [facility] | [address] | [place] [address] | | | [place] | | | | + + + [...]
--- OUTSIDE RECORDS SUMMARY | ~2019-05-10 | XMS | Encounter Summary ---
Demographics + + + | Address | [address] | | | [place] [address] | + + + | Home Phone [...] [place], [place] | | | | | [address] | | + + + + + | Ellie Vang | ECON | Unknown | | + + + + + Care Team Providers + +------+ + | Care Cafeteria Clerk Name | Role | Phone | [...] [place] | | | | | | [address] | | | | | | [phone] | | | | | | | [...] | | | | [place], [place] | | | | | | [address] | | | | | | [phone] | | | | | | | | +--------+ + + + + | 07/08/ | Procedure | Surgery | | | | 2019 | Pass | | | | +--------+ + + + + documented as of this encounter Visit Diagnoses Not on filedocumented in this encounter"
--- OUTSIDE RECORDS SUMMARY | ~2019-05-10 | XMS | Encounter Summary ---
Demographics + + + | Address | [address] | | | [place] [address] | + + + | Home Phone [...] [place], [place] | | | | | [address] | | + + + + + [...] | | 2018 | | Center at [facility] [address] | MD [address] | | | | | [address] | [place], [place] | | | | | Mailcode: [place] | [address] | | | | | [facility] and | [phone] | | | | | [place] [address] | | | | | | [place], [place] | | | | | | [address] | | | | | | [phone] | | | +--------+--------+ + + + [...] | | | | | | [place], [place] | | | | | | [address] | | | | | | [phone] | | | | | | | [...] [place] | | | | | | [address] | | | | | | [phone] | | | | | | | | +--------+ + + + + | 07/08/ | Procedure | Surgery | | | | 2018 | Pass | | | | +--------+ + + + + documented as of this encounter Visit Diagnoses Not on filedocumented in this encounter"
--- OUTSIDE RECORDS SUMMARY | ~2019-05-10 | XMS | Encounter Summary ---
[...] [place], [place] | | | | | [address] | | + + + + + | Ellie Vang | ECON | Unknown | | + + + + + Care Team Providers + +------+ + | Care Apple Turner Name | Role | Phone | [...] | | | [address] | [place], [place] | Dx); History of | | | | Mailcode: Center | [address] | Frandy-en-Y gastric | | | | for Health and | | bypass | | | | [facility], [facility] 2 | | | | | | [place], [place] | | | | | | [address] | | | | | | [phone] | | | +--------+---------+ + + + [...] the healing stomach. There are also terminal system operator complications of poor wound healing and gastric u lcers. These ulcers are started by smoking or using other nicotine products (vapor cigarett es etc). Gastric bypass patients should also avoid NSAIDS(ibuprofen, advil, motrin, naprosyn/naproxe n/aleve) to prevent gastric/marginal ulcers. Please visit with our Trolley Car Overhauler (RD) for instructions about your Bariatric diet, assistance with calorie counts, tips and tricks for working with your diet restrictions, an d recipes after bariatric surgery. Daily yogurt; even just 1 tablespoon twice a day will provide enough probiotics to optimize digestion. Try to use a high-quality, probiotic-dense yogurt (eg Zaria's, [place], Lif eway Kefir, Putty Remover Duke's Turkish Yogurt). Remember to chew your food well, [...] protein daily, and 64 oz water daily. Brewery Pumper just changed diet to he lp her [...] by communicating with her mother - Follow Brewery Pumper recommendations to help with nausea (decrease volume, [...] Anisa Dillon MD PGY-1, Red Surgery Pager: [phone] documented in this encounter Plan of Treatment [...] [place] | | | | | | [address] | | | | | | [phone] | | | | | | | [...] [place] | | | | | | [address] | | | | | | [phone] | | | | | | | [...]
--- OUTSIDE RECORDS SUMMARY | ~2019-05-10 | XMS | Encounter Summary ---
Demographics + + + | Address | [address] | | | [place] [address] | + + + | Home Phone [...] [place], [place] | | | | | [address] | | + + + + + | Ellie Vang | ECON | Unknown | | + + + + + Care Team Providers + +------+ + | Care Board Hammer Operator Name | Role | Phone [...] | | 2014 | | Center at [facility] [address] | [address] | (11/03 and 11/06 phone | | | | [address] | Lesly Gutiérrez [place], | calls) | | | | Mailcode: [place] | [place] [address] | | | | | for Health and | | | | | | [facility] 2 | | | | | | [place], [place] | | | | | | [address] | | | | | | [phone] | | | +--------+ + + + [...] | +--------+ + + + + | 10/18/ | Office | Plastic Surgery | Archie Ybarra MD | | | 2018 | Visit | | [address] | | | | | | [place], [place] | | | | | | [address] | | | | | | [phone] | | | | | | | [...] | | | | | [place], [place] | | | | | | [address] | | | | | | [phone] | | | | | | | | +--------+ + + + + | 07/08/ | Procedure | Surgery | | | | 2018 | Pass | | | | +--------+ + + + + documented as of this encounter Visit Diagnoses Not on filedocumented in this encounter"
--- OUTSIDE RECORDS SUMMARY | ~2019-05-10 | XMS | Encounter Summary ---
Demographics + + + | Address | [address] | | | [place] [address] | + + + | Home Phone [...] + | Katalina Padilla | ECON | [address] | | | | | [place], [place] | | | | | [address] | | + + + + + | Ellie Vang | ECON | Unknown | | + + + + + Care Team Providers + +------+ + | Care Scrap Hoist Operator Name | Role | Phone | [...] | 2015 | Visit | Center at [facility] [address] | | (Primary Dx) | | | | [address] | | | | | | Mailcode: Center | | | | | | for Health and | | | | | | [facility] 2 | | | | | | [place], [place] | | | | | | [address] | | | | | | [phone] | | | +--------+---------+ + + + [...] of Class: 2:00 until 3:00 (60 minutes uqdg-yn-wrxs with patient) OBJECTIVE: Height: Ht Readings from [...] Childs RD, [facility], LD Pager# [phone] documented in this enc ounter Plan of Treatment +--------+ + + + + | Date | Type | Specialty | Care Team | Description | +--------+ + + + + | 05/13/ | Office | Plastic Surgery | Archie Ybarra MD | | | 2019 | Visit | | [address] | | | | | | [place], [place] | | | | | | [address] | | | | | | [phone] | | | | | | | | +--------+ + + + + | 06/27/ | Telephone-S | Pre-operative | | | | 2019 | cheduled | Medicine | | | +--------+ + + + + | 06/30/ | Office | Cardiology | Randell Franks, | | | 2018 | Visit | | [address] | | | | | | [place], [place] | | | | | | [address] | | | | | | [phone] | | | | | | | [...]
--- OUTSIDE RECORDS SUMMARY | ~2019-05-10 | XMS | Encounter Summary ---
Demographics + + + | Address | [address] | | | [place] [address] | + + + | Home Phone [...] + | Katalina Padilla | ECON | [address] | | | | | [place], [place] | | | | | [address] | | + + + + + | Ellie Vang | ECON | Unknown | | + + + + + Care Team Providers + +------+ + | Care Jig Operator Name | Role | Phone | + +------+ + | Fadi Goodrich DO | PCP | | + +------+ + Reason for Visit + + + | Reason | Comments | + + + | Medical Records | Letter from disability case manager. | | Review | | + + + Encounter Details +--------+ + + + + | Date | Type | Department | Care Team | Description | +--------+ + + + + | 11/08/ | Abstract | Digestive Health | Shereen Georges, | Medical Records | | 2015 | | Center at [facility] [address] | [facility] [address] | Review (Letter from | | | | [address] | [place], [place] | disability case manager. ) | | | | Mailcode: [place] | [address] | | | | | [facility] and | [phone] | | | | | [address] [address] | | | | | | [place], [place] | | | | | | [address] | | | | | | [phone] | | | +--------+ + + + [...] [address] | | | | | | [place], [place] | | | | | | [address] | | | | | | [phone] | | | | | | | [...] | | | | | [place], [place] | | | | | | [address] | | | | | | [phone] | | | | | | | | +--------+ + + + + | 07/08/ | Procedure | Surgery | | | | 2018 | Pass | | | | +--------+ + + + + documented as of this encounter Visit Diagnoses Not on filedocumented in this encounter"
--- OUTSIDE RECORDS SUMMARY | ~2019-05-10 | XMS | Encounter Summary ---
Demographics + + + | Address | [address] | | | [place] [address] | + + + | Home Phone [...] [place], [place] | | | | | [address] | | + + + + + | Ellie Vang | ECON | Unknown | | + + + + + Care Team Providers + +------+ + | Care Diversified Crops I Farmworker Name | Role | Phone | [...] | | [address] | [place], [place] | | | | | Mailcode: [place] | [address] | | | | | for Health and | [phone] | | | | | [facility] 2 | | | | | | [place], [place] | | | | | | [address] | | | | | | [phone] | | | +--------+ + + + [...] [place] | | | | | | [address] | | | | | | [phone] | | | | | | | [...] | | | | | [place], [place] | | | | | | [address] | | | | | | [phone] | | | | | | | | +--------+ + + + + | 07/08/ | Procedure | Surgery | | | | 2018 | Pass | | | | +--------+ + + + + documented as of this encounter Visit Diagnoses Not on filedocumented in this encounter"
--- OUTSIDE RECORDS SUMMARY | ~2019-05-10 | XMS | Encounter Summary ---
Demographics + + + | Address | [address] | | | [place] [address] | + + + | Home Phone [...] [place], [place] | | | | | [address] | | + + + + + | Ellie Vang | ECON | Unknown | | + + + + + Care Team Providers + +------+ + | Care Building Performance Specialist Name | Role | Phone | [...] [address] | | | | | [facility] | [facility] | | | | | [address] | [place], [place] | | | | | Mail Code: OC8PM | [address] | | | | | [facility] | [phone] | | | | | and Healing, | | | | | | Building [address] | | | | | | [place], [place] | | | | | | [address] | | | | | | [phone] | | | +--------+ + + + [...] [address] | | | | | | [place], [place] | | | | | | [address] | | | | | | [phone] | | | | | | | [...] | | | | | [place], [place] | | | | | | [address] | | | | | | [phone] | | | | | | | | +--------+ + + + + | 07/08/ | Procedure | Surgery | | | | 2019 | Pass | | | | +--------+ + + + + documented as of this encounter Visit Diagnoses Not on filedocumented in this encounter"
--- OUTSIDE RECORDS SUMMARY | ~2019-05-10 | XMS | Encounter Summary ---
Demographics + + + | Address | [address] | | | [place] [address] | + + + | Home Phone [...] [place], [place] | | | | | [address] | | + + + + + | Ellie Vang | ECON | Unknown | | + + + + + Care Team Providers + +------+ + | Care Chili Pepper Grinder Name | Role | Phone | [...] Center at [facility] [address] | MD [address] | | | | | [address] | [facility] | | | | | Mailcode: Center | [place], [place] | | | | | [facility] and | [address] | | | | | [facility], [facility] 2 | [phone] | | | | | [place], [place] | | | | | | [address] | | | | | | [phone] | | | +--------+ + + + [...] [address] | | | | | | [place], [place] | | | | | | [address] | | | | | | [phone] | | | | | | | | +--------+ + + + + | 06/27/ | Telephone-S | Pre-operative | | | | 2019 | cheduled | Medicine | | | +--------+ + + + + | 06/30/ | Office | Cardiology | Randell Franks, | | | 2019 | Visit | | [address] | | | | | | [place], [place] | | | | | | [address] | | | | | | [phone] | | | | | | | | +--------+ + + + + | 07/08/ | Procedure | Surgery | | | | 2018 | Pass | | | | +--------+ + + + + documented as of this encounter Visit Diagnoses Not on filedocumented in this encounter"
--- OUTSIDE RECORDS SUMMARY | ~2019-05-10 | XMS | Encounter Summary ---
Demographics + + + | Address | [address] | | | [place] [address] | + + + | Home Phone [...] [place], [place] | | | | | [address] | | + + + + + | Ellie Vang | ECON | Unknown | | + + + + + Care Team Providers + +------+ + | Care Creping Machine Operator Name | Role | Phone [...] | | 2017 | | Center at [facility] [address] | ACNP [address] | | | | | [address] | Ave [place], [place] | | | | | Mailcode: [place] | [address] | | | | | for Health and | [phone] | | | | | [facility] 2 | | | | | | [place], [place] | | | | | | [address] | | | | | | | [...] | | 2019 | Visit | | [address] | | | | | | [place], [place] | | | | | | [address] | | | | | | [phone] | | | | | | | [...] | | | | | [place], [place] | | | | | | [address] | | | | | | [phone] | | | | | | | | +--------+ + + + + | 07/08/ | Procedure | Surgery | | | | 2018 | Pass | | | | +--------+ + + + + documented as of this encounter Visit Diagnoses Not on filedocumented in this encounter"
--- OUTSIDE RECORDS SUMMARY | ~2019-05-10 | XMS | Encounter Summary ---
Demographics + + + | Address | [address] | | | [place] [address] | + + + | Home Phone [...] [place], [place] | | | | | [address] | | + + + + + | Ellie Vang | ECON | Unknown | | + + + + + Care Team Providers + +------+ + | Care Maid Housekeeper Name | Role | Phone | + +------+ + | Kenyatta Cardenas MD | PCP | | + +------+ + Encounter Details +--------+ + + + + | Date | Type | Department | Care Team | Description | +--------+ + + + + | 12/01/ | Documentati | Digestive Health | Clinic, Surgery | | | 2016 | on | Center at [place] [address] | | | | | | [address] | | | | | | Mailcode: [place] | | | | | | for Health and | | | | | | [facility], [facility] 2 | | | | | | [place], [place] | | | | | | [address] | | | | | | [phone] | | | +--------+ + + + [...] [address] | | | | | | [place], [place] | | | | | | [address] | | | | | | [phone] | | | | | | | [...] | | | | | [place], [place] | | | | | | [address] | | | | | | [phone] | | | | | | | | +--------+ + + + + | 07/08/ | Procedure | Surgery | | | | 2018 | Pass | | | | +--------+ + + + + documented as of this encounter Visit Diagnoses Not on filedocumented in this encounter"
--- OUTSIDE RECORDS SUMMARY | ~2019-05-10 | XMS | Encounter Summary ---
Demographics + + + | Address | [address] | | | [place] [address] | + + + | Home Phone [...] [place], [place] | | | | | [address] | | + + + + + | Ellie Vang | ECON | Unknown | | + + + + + Care Team Providers + +------+ + | Care Silver Miner Name | Role | Phone | [...] | | | [address] | [facility] | | | | | Mailcode: Center | [place], [place] | | | | | [facility] Health and | [address] | | | | | [facility], [facility] 2 | [phone] | | | | | [place], [place] | | | | | | [address] | | | | | | [phone] | | | +--------+ + + + [...] [address] | | | | | | [place], [place] | | | | | | [address] | | | | | | [phone] | | | | | | | | +--------+ + + + + | 06/27/ | Telephone-S | Pre-operative | | | | 2018 | cheduled | Medicine | | | +--------+ + + + + | 06/30/ | Office | Cardiology | Randell Franks, | | | 2018 | Visit | | [address] | | | | | | Ave [place], [place] | | | | | | [address] | | | | | | [phone] | | | | | | | | +--------+ + + + + | 07/08/ | Procedure | Surgery | | | | 2018 | Pass | | | | +--------+ + + + + documented as of this encounter Visit Diagnoses Not on filedocumented in this encounter"
--- OUTSIDE RECORDS SUMMARY | ~2019-05-10 | XMS | Encounter Summary ---
Demographics + + + | Address | [address] | | | [place] [address] | + + + | Home Phone [...] [place], [place] | | | | | [address] | | + + + + + | Ellie Vang | ECON | Unknown | | + + + + + Care Team Providers + +------+ + | Care Optical Glass Etcher Name | Role | Phone | [...] | | bypass | [place], [place] | [facility] Center | | | | | Nausea and | [address] | for Health | | | | | vomiting, | Phone: | and Healing, | | | | | intractabili | | Building 2 | | | | | ty of | Fax: | [place], [place] | | | | | vomiting not | [phone] | [address] | | | | | specified, | | Phone: | | | | | unspecified | | [phone] | | | | | vomiting | | Fax: | | | | | type | | [phone] | | | | | Decreased | [...] | | | | | | [place] | | | | | | | UPPER GI | | | | | | | ENDOSCOPY,BI | | | | | | | OPSY [place] UP | | | | | | [...] | | 2017 | | Center at [facility] [address] | MD [address] | | | | | [address] | [place], [place] | | | | | Mailcode: [place] | [address] | | | | | for Health and | | | | | | [place] [address] | | | | | | [place], [place] | | | | | | [address] | | | | | | [phone] | | | +--------+ + + + [...] [place] | | | | | | [address] | | | | | | [phone] | | | | | | | | +--------+ + + + + | 06/27/ | Telephone-S | Pre-operative | | | | 2018 | cheduled | Medicine | | | +--------+ + + + + | 06/30/ | Office | Cardiology | Randell Franks, | | | 2018 | Visit | | [address] | | | | | | Ave [place], [place] | | | | | | [address] | | | | | | [phone] | | | | | | | [...]
--- OUTSIDE RECORDS SUMMARY | ~2019-05-10 | XMS | Encounter Summary ---
Demographics + + + | Address | [address] | | | [place] [address] | + + + | Home Phone [...] + | Katalina Padilla | ECON | [address] | | | | | [place], [place] | | | | | [address] | | + + + + + | Ellie Vang | ECON | Unknown | | + + + + + Care Team Providers + +------+ + | Care Friction Welding Machine Operator Name | Role | Phone [...] | [facility] | | | with EDGE TRIMMER MECHANIC | | hypertension | [address] | [address] | | | | | Right | [address] | [address] | | | | | heart | [place], [place] | Mailcode: | | | | | failure | [address] | Center for | | | | | ([facility]) Type | Phone: | Health and | | | | | 2 diabetes | [phone] | Healing, | | | | | mellitus | Fax: | Building 2 | | | | | without | [phone] | [place], [place] | | | | | complication | | [address] | | | | | , with | | Phone: | | | | | long-term | | | | | | | current use | | Fax: | | | | | of insulin | | [phone] | | | | | ([facility]) | | | | | | [...] | | 2 diabetes | JEAN, | [place], [place] | | | | | mellitus | [place] [address] | [address] | | | | | without | Phone: | Phone: | | | | | complication | [phone] | [phone] | | | | | (HCC) | Fax: | Fax: | | | | | Procedures | [phone] | [phone] | | | | | [place] EST | | | | | | [...] | Visit | Preventive at [facility] | [address] | hypertension | | | | [address] | Ave [place], [place] | (Primary Dx); Right | | | | Mailcode: [facility] | [address] | heart failure (HCC); | | | | [facility] | [phone] | Type 2 diabetes | | | | and Healing, | | mellitus without | | | | Building [address] | | complication, with | | | | [place], [place] | | long-term current | | | | [address] | | use of insulin (HCC) | | | | [phone] | | | +--------+---------+ + + + [...] 81 mg by mouth once daily. CALCIUM CRB&XNW-M4-LGD57-GENIS ORAL Take 2 tablets by mouth two [...] then she has worked closely with her [facility] doctor and has been been [...] 12 CREATININE PLASMA (LAB) 0.79 EGFR - BANGLADESHI >60 EGFR NON -BANGLADESHI >60 GLUCOSE, PLASMA (LAB) 170 (H) CALCIUM, [...] | | | | | | [place], [place] | | | | | | [address] | | | | | | [phone] | | | | | | | [...] | | | | [place] [address], [place] | | | | | | [address] | | | | | | [phone] | | | | | | | [...] [facility] | [address] | [place] [address] | | | SERVICES, CORE | PARK [...] + + + | [facility] | [address] | [place], [place] | | | SERVICES, LIPID | [address] | [address] | | + + + + + [...] + | [facility] | [address] [facility] | [place] [address] | | | SERVICES, SPECIAL | CLARENCE [...] [facility] | [address] | [place] [address] | | | LYDIA RANGEL | CLARENCE [...]
--- OUTSIDE RECORDS SUMMARY | ~2019-05-10 | XMS | Encounter Summary ---
Demographics + + + | Address | [address] | | | [place] [address] | + + + | Home Phone [...] [place], [place] | | | | | [address] | | + + + + + | Ellie Vang | ECON | Unknown | | + + + + + Care Team Providers + +------+ + | Care Bioprocess Engineer Name | Role | Phone | [...] Diabetes & | Morbid | Kathy Feliciano, TURNING LATHE TENDER | [address] | | | | Metabolism | obesity | [address] | [address] | | | | | ([facility]) | [address], | [address] | | | | | Procedures | [address] | Physician's | | | | | CONSULT TO | [place], [place] | Pavilion | | | | | ENDO | [address] | Physician's | | | | | [address] | Phone: | Pavilion | | | | | [address] | [phone] | [place], [place] | | | | | | Fax: | [address] | | | | | | [phone] | Phone: | | | | | | | [phone] | | | | | | | Fax: | | | | | | | [phone] | +--------+--------+ + + + + Encounter Details +--------+ + + + + | Date | Type | Department | Care Team | Description | +--------+ + + + + | 11/15/ | Documentati | Digestive Health | Kathy Feldman, | | | 2012 | on | Center at [facility] [address] | TURNING LATHE TENDER [address] | | | | | [address] | [facility] 350 | | | | | Mailcode: Center | [place], [place] | | | | | [facility] and | [address] | | | | | [facility] 2 | [phone] | | | | | [place], [place] | | | | | | [address] | | | | | | [phone] | | | +--------+ + + + [...] Flannery | | | | | | [place], [place] | | | | | | [address] | | | | | | [phone] | | | | | | | | +--------+ + + + + | 06/27/ | Telephone-S | Pre-operative | | | | 2018 | cheduled | Medicine | | | +--------+ + + + + | 06/30/ | Office | Cardiology | Randell Franks, | | | 2019 | Visit | | [address] | | | | | | [place], [place] | | | | | | [address] | | | | | | [phone] | | | | | | | [...]
--- OUTSIDE RECORDS SUMMARY | ~2019-05-10 | XMS | Encounter Summary ---
Demographics + + + | Address | [address] | | | [place] [address] | + + + | Home Phone [...] [place], [place] | | | | | [address] | | + + + + + | Ellie Vang | ECON | Unknown | | + + + + + Care Team Providers + +------+ + | Care Clinical Genetics Laboratory Chief Name | Role | Phone | [...] 2013 | | Center at [facility] [address] | PREPRINT ANALYST [address] | | | | | [address] | [facility] 350 | | | | | Mailcode: Center | [place], [place] | | | | | for Health and | [address] | | | | | [facility] 2 | [phone] | | | | | [place], [place] | | | | | | [address] | | | | | | [phone] | | | +--------+ + + + [...] Flannery | | | | | | [place], [place] | | | | | | [address] | | | | | | [phone] | | | | | | | [...] | | | | | [place], [place] | | | | | | [address] | | | | | | [phone] | | | | | | | | +--------+ + + + + | 07/08/ | Procedure | Surgery | | | | 2019 | Pass | | | | +--------+ + + + + documented as of this encounter Visit Diagnoses Not on filedocumented in this encounter"
--- OUTSIDE RECORDS SUMMARY | ~2019-05-10 | XMS | Encounter Summary ---
Demographics + + + | Address | [address] | | | [place] [address] | + + + | Home Phone [...] + | Katalina Padilla | ECON | [address] | | | | | [place], [place] | | | | | [address] | | + + + + + | Ellie Vang | ECON | Unknown | | + + + + + Care Team Providers + +------+ + | Care Manager Program Management Name | Role | Phone | [...] | | | | | | [place] [address] | | | +--------+ + + + [...] Flannery | | | | | | [place], [place] | | | | | | [address] | | | | | | [phone] | | | | | | | [...] | | | | | [place], [place] | | | | | | [address] | | | | | | [phone] | | | | | | | | +--------+ + + + + | 07/08/ | Procedure | Surgery | | | | 2019 | Pass | | | | +--------+ + + + + documented as of this encounter Visit Diagnoses Not on filedocumented in this encounter"
--- OUTSIDE RECORDS SUMMARY | ~2019-05-10 | XMS | Encounter Summary ---
Demographics + + + | Address | [address] | | | [place] [address] | + + + | Home Phone [...] Team Providers + +------+ + | Care Cold Roller Name | Role | Phone | + +------+ + | Fadi Goodrich DO | PCP | | + +------+ + Encounter Details +--------+------+ + + + | Date | Type | Department | Care Team | Description | +--------+------+ + + + | 12/05/ | Lab | Laboratory at [facility] | | Type 2 diabetes | | 2013 | | [address] | | mellitus (HCC) | | | | [place], [place] | | | | | | [address] | | | | | | [phone] | | | +--------+------+ + + + [...] Flannery | | | | | | [place], [place] | | | | | | [address] | | | | | | [phone] | | | | | | | | +--------+ + + + + | 06/27/ | Telephone-S | Pre-operative | | | | 2019 | cheduled | Medicine | | | +--------+ + + + + | 06/30/ | Office | Cardiology | Randell Franks, | | | 2018 | Visit | [address] | | | | | | [address] [place], [place] | | | | | | [address] | | | | | | [phone] | | | | | | | [...] | + + + + + | [facility] | [address] | [place] [address] | | | SERVICES, SPECIAL | CLARENCE [...]
--- OUTSIDE RECORDS SUMMARY | ~2019-05-10 | XMS | Encounter Summary ---
Demographics + + + | Address | [address] | | | [place] [address] | + + + | Home Phone [...] [place], [place] | | | | | [address] | | + + + + + | Ellie Vang | ECON | Unknown | | + + + + + Care Team Providers + +------+ + | Care Compliance Assistant Name | Role | Phone | [...] | | | [address] | [place], [place] | | | | | [address] [facility] | [address] | | | | | Rd Mailcode: [facility]83 | [phone] | | | | | Francesco Peres | | | | | | [address] [place], [place] | | | | | | [address] | | | | | | [phone] | | | +--------+ + + + [...] [place] | | | | | | [address] | | | | | | [phone] | | | | | | | [...] | | | | [place], [place] | | | | | | [address] | | | | | | [phone] | | | | | | | | +--------+ + + + + | 07/08/ | Procedure | Surgery | | | | 2019 | Pass | | | | +--------+ + + + + documented as of this encounter Visit Diagnoses Not on filedocumented in this encounter"
--- OUTSIDE RECORDS SUMMARY | ~2019-05-10 | XMS | Encounter Summary ---
Demographics + + + | Address | [address] | | | [place] [address] | + + + | Home Phone [...] [place], [place] | | | | | [address] | | + + + + + | Ellie Vang | ECON | Unknown | | + + + + + Care Team Providers + +------+ + | Care Wallpaperer Name | Role | Phone | + [...] | | | [address] | [place], [place] | Dx); History of | | | | Mailcode: Center | [address] | Frandy-en-Y gastric | | | | for Health and | | bypass | | | | [facility], [facility] 2 | | | | | | [place], [place] | | | | | | [address] | | | | | | [phone] | | | +--------+---------+ + + + [...] to the healing stomach. There are also watermelon inspector complications of poor wound healing and gastric u lcers. These ulcers are started by smoking or using other nicotine products (vapor cigarett es etc). Gastric bypass patients should also avoid NSAIDS(ibuprofen, advil, motrin, naprosyn/naproxe n/aleve) to prevent gastric/marginal ulcers. Please visit with our Engineering Geologist (RD) for instructions about your Bariatric diet, assistance with calorie counts, tips and tricks for working with your diet restrictions, an d recipes after bariatric surgery. Daily yogurt; even just 1 tablespoon twice a day will provide enough probiotics to optimize digestion. Try to use a high-quality, probiotic-dense yogurt (eg Zaria's, [place], Lif eway Kefir, Test Skein Winder Duke's Croatian Yogurt). Remember to chew your food well, [...] protein daily, and 64 oz water daily. Barometers Calibrator just changed diet to he lp her [...] by communicating with her mother - Follow Barometers Calibrator recommendations to help with nausea (decrease volume, [...] Anisa Dillon MD PGY-1, Red Surgery Pager: [phone] documented in this encounter Plan of Treatment [...] [place] | | | | | | [address] | | | | | | [phone] | | | | | | | [...] | | | | | [place], [place] | | | | | | [address] | | | | | | [phone] | | | | | | | [...]
--- OUTSIDE RECORDS SUMMARY | ~2019-05-10 | XMS | Encounter Summary ---
Demographics + + + | Address | [address] | | | [place] [address] | + + + | Home Phone [...] + + | Author | [facility] | | | and Jeffana | + + + | Organization | [facility] | | | and Jeffana [...] Providers + +------+ + | Care Knife Finisher Name | Role | Phone | [...] | Disease | Chronic | Karin, | [facility] | | | Required | | diastolic | TRUANT OFFICER [address] | SLEEP | | | | | heart | PAYAL GASOTN | DISORDERS LAB | | | | | failure | DMITRI [address] | [address] | | | | | (HCC) | [place], [place] | [address] | | | | | History of | [address] | [place], [place] | | | | | sinus | Phone: | [address] | | | | | tachycardia | [phone] | Phone: | | | | | History of | Fax: | [phone] | | | | | bariatric | [phone] | Fax: | | | | | surgery | | [phone] | | | | | Sleep apnea [...] + + | 04/28/ | Office | [facility] | Sulema Altamirano | Chronic diastolic | | 2019 | Visit | CARDIOLOGY [place] | [address] | heart failure (HCC) | | | | [address] | [address] | (Primary Dx); | | | | [address] | [place] [address] | History of sinus | | | | [place], [place] | [phone] | tachycardia; History | | | | [address] | | of stroke; HTN, | | | | [phone] | | goal below 130/80; | | [...] have referred you to Dr. Rascon at [facility] , call [phone] for an appointment next week I made [...] dysfunction with previous dysfunctional RV treated at [facility] with diuresis and hospitalization for one month., sleep apnea treated with BiPAP, t ype II diabetes, hypothyroidism, morbid obesity with alveolar hypoventilation, Frandy-en-Y ga stric bypass surgery 02/2018, osteoarthritis,DVT and PE 2017, hypokalemia and hyperuricemia which is being followed by newspaper deliverer Dr. Fu, and SELINA Escobar. Her current [...] today that she never heard from the [place] [facility] providers to her sup posed [...] surgery, and weight down 123 pounds since [facility] 2018 when weighed 394 lbs. She brought [...] hypothyroidism,followed by Dr. Franks, endocrin ologist at [facility]) . Denies excessive thirst or hunger. [...] knee pain and hernia pain Lives in [facility] ith her mother who smokes. . Sister is career development coordinator. Grandchildren ages 4 and 7 live with he r daughter and son-in-law. Disabled , on disability .01/24/2019: working with [employer] to get her own place. Outpatient Medications [...] film Suboxone 2 mg-0.5 mg sublingual film Sonanpn-Fmigauemt-Qxxynkl D (CITRACAL CALCIUM+D PO) Take 2 tablets [...] Pen Needle (NOVOFINE) 32G X 6 MM [facility] Novofine 32 32 gauge x 1/4" needle [...] monohydrate/macrocrystals 100 m g capsule nystatin (NYSTATIN) 029353 UNIT/GM powder Nyamyc 100,000 unit/gram topical powder [...] Take 30 mg by mouth Daily. thyroid (FIELD ORGANIZER THYROID) 30 mg tablet FIELD ORGANIZER Thyroid 30 mg tablet TAKE ONE TABLET [...] Ascending aorta not well seen Echo: 02/16/2017: ([facility] normal EF of 60-65% , accurate assessment of diastolic function i mpeded by poor tissue doppler, RV normal in size and function, with no significant valvular disease, and aortic root, ascending aorta , and aortic arch normal Echo: 01/02/2016 ([facility]): TDS, cardiac chamber dimensions grossly NML, LVEF >70%, rodriguez tolic function normal for patient. Unable to assess segmental wall motion. RV grossly norm al. Aortic valve sclerotic, no As/AI. Mitral and tricuspid valves grossly normal. Trace T R. No pericardial effusion VASCULAR TESTING AND PROCEDURES Left lower extremity DVT, presumed PE: 10/2015 [facility]. treated with heparin drip and Coumadin 10 in hospital, with Coumadin 6 months as outpatient, ASA 81 mg continued Venous US: right leg, 04/28/2016: No evidence of DVT. EKG EKG 10/27: ([facility]) Normal sinus rhythm. Normal EKG. Rate 93 bpm, IN 172 ms, QRS 90 ms, QTC 465 ms personally reviewed by me in the office today) EK02/05: Sinus tachycardia, otherwise normal. Rate 160 bpm, IN 174 ms, QRS 74 ms, QTC 451 ms (personally reviewed by me in the office today and no significant change seen fro m EKG done in October 2016 except for faster heart rate) EK04/26/2018: Normal sinus rhythm, rate 74 bpm, IN 182 ms, QRS 96 ms, QTC 472 ms, alexandru genao personally reviewed by me, and compared to previous EKG, heart rate is now better controll ed, otherwise similar morphology EK04/28/2019: Normal sinus rhythm, right axis. Rate 74 bpm, IN 170 ms, QRS 88 ms, QTC 45 [...] heard from the sleep providers at the [place] [facility] in [place], so I have referred her again to Dr. Rascon at the [place] [facility], and she ne eds [...] Placed This Encounter Procedures Ambulatory Referral to [facility] Pulmonology- Sleep study as well ECG 12 [...] past surgical history. Problem list. Maryse MARKS [facility] Cardiology 04/28/2019 documente d in this encounter Plan of Treatment + +--------+ + + | Name | Priori | Associated Diagnoses | Order Schedule | | | ty | | | + +--------+ + + | Ambulatory Referral to [facility] | Routin | Chronic diastolic | Ordered: [...] | | | | | by [facility] [place] Read Only, | | | | | | [facility]al ([id number]), | | | | | | manuscript editor Glen Alberto | | | | | | ([phone]) on 04/28/2019 | | | | | [...]
--- OUTSIDE RECORDS SUMMARY | ~2019-05-10 | XMS | Encounter Summary ---
[...] [place], [place] | | | | | [address] | | + + + + + | Ellie Vang | ECON | Unknown | | + + + + + Care Team Providers + +------+ + | Care Senior Account Executive Name | Role | Phone [...] | | | 2014 | Event | [facility] | MD Raza [address] | | | | | Admitting Desk | [address] | | | | | Located on the 9 | [place], [place] | | | | | floor [address] | [address] | | | | | [address] | [phone] | | | | | [place], [place] | | | | | | [address] | Marcial Brunner CRNA | | | | | | [address] | | | | | | Lesly Gutiérrez [place], | | | | | | [place] [address] | | | | | | [phone] | | | | | | | [...] | | (comment) (bilateral); panus; | Mariah Bonsd RN | Discontinued After | | | [...] [place] | | | | | | [address] | | | | | | [phone] | | | | | | | [...] | | | | | [place], [place] | | | | | | [address] | | | | | | [phone] | | | | | | | [...] | | | Starting Jasmyne /01/08 at 1028, | | AM PDT | [...] mg | | | | Starting Jasmyne 8 at 1013, | | 15 11:51 | | | | | Until Jasmyne 8 at 1204 | | AM PDT | [...] | | 03/01/15 at 1021, Until Jasmyne 8 | | AM PDT | | | [...]
--- OUTSIDE RECORDS SUMMARY | ~2019-05-10 | XMS | Encounter Summary ---
Demographics + + + | Address | [address] | | | [place] [address] | + + + | Home Phone [...] + | Katalina Padilla | ECON | [address] | | | | | [place], [place] | | | | | [address] | | + + + + + | Ellie Vang | ECON | Unknown | | + + + + + Care Team Providers + +------+ + | Care Neurosurgical Nurse Name | Role | Phone | [...] | | | | | (HCC) | [place], [place] | Mailcode: | | | | | Procedures | [address] | [address] [facility] | | | | | CT ABDOMEN & | Phone: | Hospital | | | | | [address] | | [place], [place] | | | | | IV CONTRAST | Fax: | [address] | | | | | [place] | [phone] | Phone: | | | | | ABDOMEN&PELV | | [phone] | | | | | IS | | Fax: | | | | | W/CONTRAST | | [phone] | | | | | See chart [...] | 2015 | Encounter | Lab at [facility] [address] | | | | | | [address] Mailcode: | | | | | | [facility] | | | | | | Health and Healing, | | | | | | [place] [address], [facility] | | | | | | Floor [place], [place] | | | | | | [address] | | | | | | [phone] | | | +--------+ + + + [...] Flannery | | | | | | [place], [place] | | | | | | [address] | | | | | | [phone] | | | | | | | | +--------+ + + + + | 06/27/ | Telephone-S | Pre-operative | | | | 2018 | cheduled | Medicine | | | +--------+ + + + + | 06/30/ | Office | Cardiology | Randell Franks, | | | 2019 | Visit | | [address] | | | | | | [place], [place] | | | | | | [address] | | | | | | [phone] | | | | | | | [...] | + + | Yamil Faculty - 10/13/2014 1:28 PM PDT | [...] + + + + | [facility] | [address] [facility] | [place] [address] | | | OF CARE TESTS | | | | + + + + + documented in this encounter Visit Diagnoses + + | Diagnosis | + + | Abdominal pain | + + | Morbid obesity (HCC) Morbid obesity | + + documented in this encounter"
--- OUTSIDE RECORDS SUMMARY | ~2019-05-10 | XMS | Encounter Summary ---
Demographics + + + | Address | [address] | | | [place] [address] | + + + | Home Phone [...] + | Katalina Padilla | ECON | [address] | | | | | [place], [place] | | | | | [address] | | + + + + + | Ellie Vang | ECON | Unknown | | + + + + + Care Team Providers + +------+ + | Care Compounding And Finishing Supervisor Name | Role | Phone | + +------+ + | Fadi Goodrich DO | PCP | | + +------+ + Encounter Details +--------+ + + + + | Date | Type | Department | Care Team | Description | +--------+ + + + + | 11/04/ | Telephone | Pain Center at [facility] | Leslie Mistry, | | | 2017 | | Floor [address] | PhD [address] [facility] | | | | | [address] Mailcode: | [address] | | | | | CH15P [place], [place] | | | | | Health and Healing, | [address] | | | | | [facility] | [phone] | | | | | Floor [place], [place] | | | | | | [address] | | | | | | [phone] | | | +--------+ + + + [...] [place] | | | | | | [address] | | | | | | [phone] | | | | | | | [...] | | | | [place], [place] | | | | | | [address] | | | | | | [phone] | | | | | | | | +--------+ + + + + | 07/08/ | Procedure | Surgery | | | | 2018 | Pass | | | | +--------+ + + + + documented as of this encounter Visit Diagnoses Not on filedocumented in this encounter"
--- OUTSIDE RECORDS SUMMARY | ~2019-05-10 | XMS | Encounter Summary ---
[...] + | Katalina Padilla | ECON | [address] | | | | | [place], [place] | | | | | [address] | | + + + + + [...] | | | | | obstruction | [place], | Mailcode: | | | | | or gangrene | [place] | Center for | | | | | Abdominal | [address] | Health and | | | | | pain, | Phone: | Healing, | | | | | unspecified | | Building 2 | | | | | abdominal | Fax: | [place], [place] | | | | | location | [phone] | [address] | | | | | Procedures | | Phone: | | | | | CONSULT TO | | [phone] | | | | | SURGERY - | | Fax: | | | | | GENERAL | | [phone] | + +--------+ + + + + [...] | | [address] | Ave [place], [place] | | | | | Mailcode: [place] | [address] | | | | | for Health and | | | | | | [facility], [facility] 2 | | | | | | [facility] [place] | | | | | | [address] | | | | | | | [...] Flannery | | | | | | [place], [place] | | | | | | [address] | | | | | | [phone] | | | | | | | [...] | | | [place] [facility] [place] | | | | | | [address] | | | | | | [phone] | | | | | | | [...]
--- OUTSIDE RECORDS SUMMARY | ~2019-05-10 | XMS | Encounter Summary ---
Demographics + + + | Address | [address] | | | [place] [address] | + + + | Home Phone [...] [place], [place] | | | | | [address] | | + + + + + | Ellie Vang | ECON | Unknown | | + + + + + Care Team Providers + +------+ + | Care Senior Clinical Project Manager Name | Role | Phone [...] | | | | | essential | [address] | [address] | | | | | hypertension | [address], | Ave | | | | | Type II or | [address] | [place], [place] | | | | | unspecified | [place] | [address] | | | | | type | [address] | Phone: | | | | | diabetes | Phone: | [phone] | | | | | mellitus | [phone] | Fax: | | | | | without | Fax: | [phone] | | | | | mention of | [phone] | | | | | | complication [...] | 2015 | Visit | Preventive at [facility] | MD [address] | mellitus (HCC) | | | | [address] | Ave [place], [place] | (Primary Dx) | | | | Mailcode: [address]A | [address] | | | | | [facility] | [phone] | | | | | and Healing, | | | | | | Building [address] | | | | | | [place], [place] | | | | | | [address] | | | | | | [phone] | | | +--------+---------+ + + + [...] Flannery | | | | | | [place], [place] | | | | | | [address] | | | | | | [phone] | | | | | | | [...] | | | | | [place], [place] | | | | | | [address] | | | | | | [phone] | | | | | | | [...] [facility] | [address] | [place] [address] | | | [address] | CLARENCE [...] | + + + + + | [facility] [employer] | [address] | [place] [address] | | | SERVICES, SPECIAL | PARK [...]
--- OUTSIDE RECORDS SUMMARY | ~2019-05-10 | XMS | Encounter Summary ---
Demographics + + + | Address | [address] | | | [place] [address] | + + + | Home Phone [...] [place], [place] | | | | | [address] | | + + + + + | Ellie Vang | ECON | Unknown | | + + + + + Care Team Providers + +------+ + | Care Brick Extruder Operator Name | Role | Phone | [...] from Patient; | | 2017 | | [place] [address] | MD [address] | Postoperative | | | | Ave Mailcode: CH4S | [place], [place] | infection | | | | [facility] | [address] | | | | | and Healing, | [phone] | | | | | [place] [address] [facility] | | | | | | [place], [place] | | | | | | [address] | | | | | | [phone] | | | +--------+ + + + [...] [place] | | | | | | [address] | | | | | | [phone] | | | | | | | [...] | | | | [place], [place] | | | | | | [address] | | | | | | [phone] | | | | | | | | +--------+ + + + + | 07/08/ | Procedure | Surgery | | | | 2019 | Pass | | | | +--------+ + + + + documented as of this encounter Visit Diagnoses Not on filedocumented in this encounter"
--- OUTSIDE RECORDS SUMMARY | ~2019-05-10 | XMS | Encounter Summary ---
Demographics + + + | Address | [address] | | | [place] [address] | + + + | Home Phone [...] + | Katalina Padilla | ECON | [address] | | | | | [place], [place] | | | | | [address] | | + + + + + | Ellie Vang | ECON | Unknown | | + + + + + Care Team Providers + +------+ + | Care Curator Name | Role | Phone | + +------+ + | Fadi Goodrich DO | PCP | | + +------+ + Encounter Details +--------+ + + + + | Date | Type | Department | Care Team | Description | +--------+ + + + + | 12/12/ | Emergency | [facility] Emergency | | | | 2014 - | | Department [address] | | | | | [address] | | | | 05/20/ | | [facility] | | | | 2014 | | [place], [place] | | | | | | [address] | | | | | | [phone] | | | +--------+ + + + [...] [address]ann[address] | | | | | | [place], [place] | | | | | | [address] | | | | | | [phone] | | | | | | | [...] | | | | | [place], [place] | | | | | | [address] | | | | | | [phone] | | | | | | | | +--------+ + + + + | 07/08/ | Procedure | Surgery | | | | 2019 | Pass | | | | +--------+ + + + + documented as of this encounter Visit Diagnoses Not on filedocumented in this encounter"
--- OUTSIDE RECORDS SUMMARY | ~2019-05-10 | XMS | Encounter Summary ---
Demographics + + + | Address | [address] | | | [place] [address] | + + + | Home Phone [...] [place], [place] | | | | | [address] | | + + + + + | Ellie Vang | ECON | Unknown | | + + + + + Care Team Providers + +------+ + | Care Office Machine Technician Name | Role | Phone [...] | | | | | | [place] [address] | | | +--------+ + + + [...] [place] | | | | | | [address] | | | | | | [phone] | | | | | | | [...] | | | | | [place], [place] | | | | | | [address] | | | | | | [phone] | | | | | | | | +--------+ + + + + | 07/08/ | Procedure | Surgery | | | | 2019 | Pass | | | | +--------+ + + + + documented as of this encounter Visit Diagnoses Not on filedocumented in this encounter"
--- OUTSIDE RECORDS SUMMARY | ~2019-05-10 | XMS | Encounter Summary ---
Demographics + + + | Address | [address] | | | [place] [address] | + + + | Home Phone [...] + | Katalina Padilla | ECON | [address] | | | | | [place], [place] | | | | | [address] | | + + + + + | Ellie Vang | ECON | Unknown | | + + + + + Care Team Providers + +------+ + | Care Board Handler Name | Role | Phone | + +------+ + | Kenyatta Cardenas MD | PCP | | + +------+ + Encounter Details +--------+ + + + + | Date | Type | Department | Care Team | Description | +--------+ + + + + | 03/02/ | [employer] | Digestive Health | Keren Allen, | | | 2019 | | Center at [facility] [address] | AGACNP [address] | | | | | [address] | [place] [facility] [place] | | | | | Mailcode: [place] | [address] | | | | | for Health and | | | | | | [facility] 2 | | | | | | [place], [place] | | | | | | [address] | | | | | | | [...] [place] | | | | | | [address] | | | | | | [phone] | | | | | | | | +--------+ + + + + | 06/27/ | Telephone-S | Pre-operative | | | | 2018 | cheduled | Medicine | | | +--------+ + + + + | 06/30/ | Office | Cardiology | Randell Franks, | | | 2018 | Visit | | [address] | | | | | | [place], [place] | | | | | | [address] | | | | | | [phone] | | | | | | | | +--------+ + + + + | 07/08/ | Procedure | Surgery | | | | 2018 | Pass | | | | +--------+ + + + + documented as of this encounter Visit Diagnoses Not on filedocumented in this encounter"
--- OUTSIDE RECORDS SUMMARY | ~2019-05-10 | XMS | Encounter Summary ---
Demographics + + + | Address | [address] | | | [place] [address] | + + + | Home Phone [...] + | Katalina Padilla | ECON | [address] | | | | | [place], [place] | | | | | [address] | | + + + + + | Ellie Vang | ECON | Unknown | | + + + + + Care Team Providers + +------+ + | Care Audio Video Mechanic Name | Role | Phone | [...] | | | | | | [place] [address] | | | +--------+ + + + [...] Flann[address] | | | | | | [place], [place] | | | | | | [address] | | | | | | [phone] | | | | | | | [...] | | | | | [place], [place] | | | | | | [address] | | | | | | [phone] | | | | | | | | +--------+ + + + + | 07/08/ | Procedure | Surgery | | | | 2019 | Pass | | | | +--------+ + + + + documented as of this encounter Visit Diagnoses Not on filedocumented in this encounter"
--- OUTSIDE RECORDS SUMMARY | ~2019-05-10 | XMS | Encounter Summary ---
Demographics + + + | Address | [address] | | | [place] [address] | + + + | Home Phone [...] [place], [place] | | | | | [address] | | + + + + + | Ellie Vang | ECON | Unknown | | + + + + + Care Team Providers + +------+ + | Care Manager Relationship Name | Role | Phone | + +------+ + | Kenyatta Cardenas MD | PCP | | + +------+ + Encounter Details +--------+ + + + + | Date | Type | Department | Care Team | Description | +--------+ + + + + | 03/10/ | Pharmacy | [facility] | | | | 2018 | Visit | & [facility] | | | | | | [address] | | | | | | Mailcode: Center | | | | | | [facility] and | | | | | | [facility], [facility] 1 | | | | | | [place], [place] | | | | | | [address] | | | | | | [phone] | | | +--------+ + + + [...] | | | | | | [place], [place] | | | | | | [address] | | | | | | [phone] | | | | | | | [...] | | | | [place], [place] | | | | | | [address] | | | | | | [phone] | | | | | | | | +--------+ + + + + | 07/08/ | Procedure | Surgery | | | | 2018 | Pass | | | | +--------+ + + + + documented as of this encounter Visit Diagnoses Not on filedocumented in this encounter"
--- OUTSIDE RECORDS SUMMARY | ~2019-05-10 | XMS | Encounter Summary ---
Demographics + + + | Address | [address] | | | [place] [address] | + + + | Home Phone [...] [place], [place] | | | | | [address] | | + + + + + | Ellie Vang | ECON | Unknown | | + + + + + Care Team Providers + +------+ + | Care Process Inspector Name | Role | Phone | + +------+ + | Fadi Goodrich DO | PCP | | + +------+ + Encounter Details +--------+ + + + + | Date | Type | Department | Care Team | Description | +--------+ + + + + | 06/09/ | Abstract | Digestive Health | Kathy Feldman, | | | 2012 | | Center at [facility] [address] | CLINICAL ANALYST [address] | | | | | [address] [place] | [facility] 350 | | | | | Mailcode: Center | [place], [place] | | | | | [facility] and | [address] | | | | | [facility] 2 | [phone] | | | | | [place], [place] | | | | | | [address] | | | | | | [phone] | | | +--------+ + + + [...] [address]ann[address] | | | | | | [place], [place] | | | | | | [address] | | | | | | [phone] | | | | | | | | +--------+ + + + + | 06/27/ | Telephone-S | Pre-operative | | | | 2019 | cheduled | Medicine | | | +--------+ + + + + | 06/30/ | Office | Cardiology | Randell Franks, | | | 2019 | Visit | | [address] | | | | | | [place], [place] | | | | | | [address] | | | | | | [phone] | | | | | | | | +--------+ + + + + | 07/08/ | Procedure | Surgery | | | | 2018 | Pass | | | | +--------+ + + + + documented as of this encounter Visit Diagnoses Not on filedocumented in this encounter"
--- OUTSIDE RECORDS SUMMARY | ~2019-05-10 | XMS | Encounter Summary ---
Demographics + + + | Address | [address] | | | [place] [address] | + + + | Home Phone [...] [place], [place] | | | | | [address] | | + + + + + | Ellie Vang | ECON | Unknown | | + + + + + Care Team Providers + +------+ + | Care Refractory Worker Name | Role | Phone | [...] | [facility] | | | with WATERWAY TRAFFIC CHECKER | | hypertension | [address] | [address] | | | | | Right | [address] | [address] | | | | | heart | [place], [place] | Mailcode: | | | | | failure | [address] | Center for | | | | | ([facility]) Type | Phone: | Health and | | | | | 2 diabetes | [phone] | Healing, | | | | | mellitus | Fax: | Building 2 | | | | | without | [phone] | [place], [place] | | | | | complication | | [address] | | | | | , with | | Phone: | | | | | long-term | | | | | | | current use | | Fax: | | | | | of insulin | | [phone] | | | | | ([facility] [...] 2019 | Visit | Center at [facility] [address] | EXECUTIVE SOUS CHEF [address] | gastric bypass | | | | [address] | Ave [place], [place] | (Primary Dx); | | | | Mailcode: [place] | [address] | Intertriginous | | | | for Health and | [phone] | candidiasis | | | | [facility], [facility] 2 | | | | | | [place], [place] | | | | | | [address] | | | | | | [phone] | | | +--------+---------+ + + + [...] Has a new PCP, Dr. Cardenas in [facility]. Bariatric Measures: Activity: walking 1.5-2 miles [...] [facility] Social History Social History Marital [...] History Narrative Updated 11/09/15 She lives in [place] with her mother and her sister (also her caregiver) lives in an apa rtment/duplex below. She has 2 grandchildren (age 4 and 7) who live with her daughter and son-in-law Her boyfriend lives in [place] HFpEF, DM2, HTN, Sleep Apnea (unable to [...] here and refer her to our marketing content specialist who also has expertise in physical [...] tongue once daily., Disp: , Rfl: CALCIUM CRB&ORI-G6-PEV79-GENIS ORAL, Take 2 tablets by mouth two [...] n/a -HTN: still on medications -Diabetes: seeing parts runner in December, hopes to eliminate Metformin then as recent A1c was normal Return to bariatric clinic in 6 months for 1 year follow up visit See your primary care provider for adjusting any other medications. Call if any abdominal pain, n/v/d or other issues. Pt agrees to plan and will call and/or send payever message if any issues. Start time 2:45, end time 3:10. I spent a total of 25 minutes face to face with this patie nt. Over 50% of visit was in counseling. HILDA Davalos Bariatric Surgery Nurse Practitioner [facility] | [address] | [place], [place] | [address] | documented in this encounter Plan of Treatment +--------+ + + + + | Date | Type | Specialty | Care Team | Description | +--------+ + + + + | 05/13/ | Office | Plastic Surgery | Archie Ybarra MD | | | 2018 | Visit | | [address] | | | | | | [place], [place] | | | | | | [address] | | | | | | [phone] | | | | | | | [...] | | | | | [place], [place] | | | | | | [address] | | | | | | [phone] | | | | | | | [...] | + + + + + | [facility] | [address] | [place] [address] | | | SERVICES, CORE | CLARENCE [...] + | [facility] | [address] [facility] [address] | [place] [address] | | | SERVICES, CORE | PARK [...] INTFC | | | | determined by [employer] | | | | | | Laboratories. See | | | | | | Compliance Statement B: | | | | | | Metrolight.Sunnova/CSPerformed | | | | | | by [employer],[address] | | | | | | [facility] | | | | | | [address] | | | | | | [phone].Metrolight. | | | | | | com, [...] [facility] | [address] | [place], [place] | | | UNIV PTH - INTFC | | [address] | | + + + + + [...] | | | | | determined by [employer] | | | | | | Laboratories. See | | | | | | Compliance Statement B: | | | | | | Metrol[employer].Sunnova/CSPerformed | | | | | | by [employer],[address] | | | | | | [address]arson [facility],[place] | | | | | | [address] | | | | | | [phone].Metrolight. | | | | | | comIsmael [...] [facility] | [address] | [place], [place] | | | UNIV PTH - INTFC | | [address] | | + + + + + [...] [facility] | | | (YEN NOAH) | [facility],[address] | | REG UNIV | | | SERUM | [address] Parson, [facility],[place] | | PTH - INTFC | | | | [address] | | | | | | [phone].Metrolight. | | | | | | SunnovaIsmael MD, | | | | | | [...] B: | | | | | | Metrol[employer].Sunnova/ | | | | + + + + + + + + | Specimen | + + | Blood - Blood | | (substance) | + + + + + + + | Performing | Address | City/State/Zipcode | Phone Number | | Organization | | | | + + + + + | [facility] | [address] | [place], [place] | | | UNIV PTH - INTFC | | [address] | | + + + + + [...] | [facility] | [address] | [place] [address] | | | SERVICES, CORE | CLARENCE [...] [facility] | [address] | [place] [address] | | | SERVICES, LYDIA | PARK [...] [facility] | | | | | | [employer]. See | | | | | | Compliance Statement B: | | | | | | Metrolight.Sunnova/CSPerformed | | | | | | by [employer],[address] | | | | | | [address], [facility],[place] | | | | | | [address] | | | | | | [phone].Metrolight. | | | | | | [facility], Ismael Willis MD, | | [...] [facility] | [address] | [place], [place] | | | UNIV PTH - INTFC | | [address] | | + + + + + [...] + | [facility] | [address] [facility] [address] | [place] [address] | | | SERVICES, CORE | PARK [...] | | | | | determined by [employer] | | | | | | Laboratories. See | | | | | | Compliance Statement B: | | | | | | Metrolight.com/CSPerformed | | | | | | by [employer],[address] | | | | | | [facility],[place] | | | | | | [address] | | | | | | [phone].Metrolight. | | | | | | [facility], Ismael Willis MD, | | [...] [facility] | [address] | [place], [place] | | | UNIV PTH - INTFC | | [address] | | + + [...] CENTER LABORATORY | [address] | [place] [address] | | | SERVICES, CORE | PARK [...] [facility] | [address] [facility] [address] | [place] [address] | | | SERVICES, SPECIAL | CLARENCE [...] and | 50 - 200 ng/mL | [facility] | | | | Female >18 [...] | + + + + + | [facility] | [address] | [place] [address] | | | LYDIA RANGEL | CLARENCE [...] at | | | | | | [email or web address] | | | | | | med by [facility] | | | | | | Laboratories,[address] | | | | | | [place] [address] | | | | | | [phone].Affirmed Networkslab. | | | | | | Ismael [...] [facility] | [address] | [place], [place] | | | UNIV PTH - INTFC | | [address] | | + + + + + [...] | | | LABORATORY | | | AUSTRIAN | | | SERVICES, | | | [...] equation recommended by the | [facility] | | National Kidney [...] [facility] | [address] | [place] [address] | | | SERVICES, CORE | CLARENCE [...]
--- OUTSIDE RECORDS SUMMARY | ~2019-05-10 | XMS | Encounter Summary ---
Demographics + + + | Address | [address] | | | [place] [address] | + + + | Home Phone [...] [place], [place] | | | | | [address] | | + + + + + | Ellie Vang | ECON | Unknown | | + + + + + Care Team Providers + +------+ + | Care Life Science Technician Name | Role | Phone | + +------+ + | Fadi Goodrich DO | PCP | | + +------+ + Encounter Details +--------+ + + + + | Date | Type | Department | Care Team | Description | +--------+ + + + + | 11/04/ | Telephone | [facility] at [facility] | Leslie Mistry, | | | 2017 | | Floor [address] | PhD [address] [facility] | | | | | [address] Mailcode: | Ryan Grace | | | | | [address] [place], [place] | | | | | Health and Healing, | [address] | | | | | [facility] | [phone] | | | | | Floor [place], [place] | | | | | | [address] | | | | | | [phone] | | | +--------+ + + + [...] [address] | | | | | | [place], [place] | | | | | | [address] | | | | | | [phone] | | | | | | | [...] | | | | | [place], [place] | | | | | | [address] | | | | | | [phone] | | | | | | | | +--------+ + + + + | 07/08/ | Procedure | Surgery | | | | 2018 | Pass | | | | +--------+ + + + + documented as of this encounter Visit Diagnoses Not on filedocumented in this encounter"
--- OUTSIDE RECORDS SUMMARY | ~2019-05-10 | XMS | Encounter Summary ---
Demographics + + + | Address | [address] | | | [place] [address] | + + + | Home Phone [...] [place], [place] | | | | | [address] | | + + + + + | Ellie Vang | ECON | Unknown | | + + + + + Care Team Providers + +------+ + | Care Galvanometer Assembler Name | Role | Phone | [...] | 2016 | on | Center at [place] [address] | | | | | | [address] | | | | | | Mailcode: [place] | | | | | | for Health and | | | | | | [facility], [facility] 2 | | | | | | [place], [place] | | | | | | [address] | | | | | | [phone] | | | +--------+ + + + [...] [address] | | | | | | [place], [place] | | | | | | [address] | | | | | | [phone] | | | | | | | | +--------+ + + + + | 06/27/ | Telephone-S | Pre-operative | | | | 2019 | cheduled | Medicine | | | +--------+ + + + + | 06/30/ | Office | Cardiology | Randlel Franks, | | | 2019 | Visit | | [address] | | | | | | [place], [place] | | | | | | [address] | | | | | | [phone] | | | | | | | | +--------+ + + + + | 07/08/ | Procedure | Surgery | | | | 2018 | Pass | | | | +--------+ + + + + documented as of this encounter Visit Diagnoses Not on filedocumented in this encounter"
--- OUTSIDE RECORDS SUMMARY | ~2019-05-10 | XMS | Encounter Summary ---
Demographics + + + | Address | [address] | | | [place] [address] | + + + | Home Phone [...] [place], [place] | | | | | [address] | | + + + + + | Ellie Vang | ECON | Unknown | | + + + + + Care Team Providers + +------+ + | Care Plc Engineer Name | Role | Phone | [...] [facility] | | | with ONLINE MERCHANDISING MANAGER | | hypertension | [address] | [address] | | | | | Right | [address] | [address] | | | | | heart | [place], [place] | Mailcode: | | | | | failure | [address] | Center for | | | | | ([facility]) Type | Phone: | Health and | | | | | 2 diabetes | [phone] | Healing, | | | | | mellitus | Fax: | Building 2 | | | | | without | [phone] | [place], [place] | | | | | complication | | [address] | | | | | , with | | Phone: | | | | | long-term | | | | | | | current use | | Fax: | | | | | of insulin | | [phone] | | | | | ([facility] [...] | Center at [facility] [address] | [address] | BMI of 70 and over, | | | | [address] | [place], [place] | adult ([facility]) (Primary | | | | Mailcode: Center | [address] | Dx); Diabetes | | | | for [employer] and | [phone] | mellitus type 2 | | | | [facility], [address] | | without retinopathy | | | | [place], [place] | | ([facility]); | | | | [address] | | Intertriginous | | | | [phone] | | candidiasis; PCOS | | | | | | (polycystic ovarian | | | | | | syndrome); AMARA | | | | | | treated with BiPAP; | | | | | | Chronic diastolic | | | | | | heart failure ([facility]); | | | | | [...] 10/30/2017 10:00 AM PDTPlease visit with our [facility] Senior Communications Engineer (RD) for instructions about your Bariatric diet, assistance with calorie c ounts, tips and tricks for working with your diet restrictions, and recipes after bariatric surgery. Daily yogurt; even just 1 tablespoon twice a day will provide enough probiotics to optimize digestion. Try to use a high-quality, probiotic-dense yogurt (eg Zaria's, Kobifield, Stacie lala Kefir, Replenishment Associate Duke's Vincentian Yogurt). Remember to chew your food well, [...] to the healing stomach. There are also detention complications of poor wound healing and gastric [...] Andie Brian Incisional hernia repair 03/01/2015 [facility]/ Dr. Cantu. Primary fascial closure [...] 1 tablet by mouth once daily CALCIUM CRB&ILC-T4-IER84-GENIS ORAL Take 2 tablets by mouth two [...] History Narrative Updated 11/09/15 She lives in [place] with her mother and her sister (also her caregiver) lives in an artment/duplex below. She has 2 grandchildren (age 4 and 7) who live with her daughter and son-in-law Her boyfriend lives in [place] HFpEF, DM2, HTN, Sleep Apnea (unable to [...] program here and refer her to our applied behavior specialist who also has expertise in physical [...] a 4-5% rate of reoperation over the computer terminal operator (i.e. years), as well as other [...] and may approach 5%. We reviewed the [facility] consent form. We discussed that [...] [place] | | | | | | [address] | | | | | | [phone] | | | | | | | [...] | | | | | [place], [place] | | | | | | [address] | | | | | | [phone] | | | | | | | [...] | | | |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 ([facility]) | | | | | | AMARA treated with | | | | | | BiPAP Chronic | | | | | | diastolic heart | | | | | | failure ([facility]) | | | | | | Essential [...] B: | | | | | | Caterna.Buddy Drinks/CSPerformed | | | | | | by [employer],[address] | | | | | | [facility],[place] | | | | | | [address] | | | | | | [phone].Caterna. | | | | | | [facility] centerIsmael MD, | | | | | [...] [facility] | [address] | [place], [place] | | | UNIV PTH - INTFC | | [address] | | + + + + + [...] | | | LABORATORY | | | SALVADOREAN | | | SERVICES, | | | [...] | + + + + + | [facility] | [address] | [place] [address] | | | SERVICES, CORE | PARK [...] [facility] | [address] | [place] [address] | | | SERVICES, CORE | PARK [...] [facility] | [address] | [place] [address] | | | SERVICES, CORE | PARK [...] | + + + + + | [facility] | [address] | [place] [address] | | | L[address]DIA RANGEL | CLARENCE [...] [facility] | [address] | [place] [address] | | | SERVICES, LYDIA | CLARENCE [...] | + + + + + | [facility] | [address] | [place] [address] | | | CLAIRE, CORE | CLARENCE [...]
--- OUTSIDE RECORDS SUMMARY | ~2019-05-10 | XMS | Encounter Summary ---
Demographics + + + | Address | [address] | | | [place] [address] | + + + | Home Phone [...] + | Katalina Padilla | ECON | [address] | | | | | [place], [place] | | | | | [address] | | + + + + + | Ellie Vang | ECON | Unknown | | + + + + + Care Team Providers + +------+ + | Care Prop Worker Name | Role | Phone | [...] | [facility] | | | with DIRECTOR PAID MEDIA | | hypertension | [address] | [address] | | | | | Right | [address] | [address] | | | | | heart | [place], [place] | Mailcode: | | | | | failure | [address] | Center for | | | | | ([facility]) Type | Phone: | Health and | | | | | 2 diabetes | [phone] | Healing, | | | | | mellitus | Fax: | Building 2 | | | | | without | [phone] | [place], [place] | | | | | complication | | [address] | | | | | , with | | Phone: | | | | | long-term | | | | | | | current use | | Fax: | | | | | of insulin | | [phone] | | | | | ([facility]) | | | | | [...] 2019 | Visit | Center at [facility] [address] | SHOE TREER [address] | gastric bypass | | | | [address] | Ave [place], [place] | (Primary Dx); | | | | Mailcode: [place] | [address] | Intertriginous | | | | for Health and | [phone] | candidiasis | | | | [facility] 2 | | | | | | [place], [place] | | | | | | [address] | | | | | | [phone] | | | +--------+---------+ + + + [...] Has a new PCP, Dr. Cardenas in [facility]. Bariatric Measures: Activity: walking 1.5-2 miles [...] index of 70 and over in adult ([facility]) Myalgia and myositis Nausea Neck pain Numbness Osteoarthritis of knee Palpitations Pneumonia Shortness of breath Staphylococcal infection Stroke ([facility]) TIA (transient ischemic attack) due [...] Brian Incisional hernia repair 03/01/2015 [facility]/ Dr. Cantu. Primary fascial closure and scar excision Lap gastric byp, and nilesh-en-y gastroenterostomy w/ nilesh limb 150 cm or less [facility] Social History Social History [...] History Narrative Updated 11/09/15 She lives in [place] with her mother and her sister (also her caregiver) lives in an apa rtment/duplex below. She has 2 grandchildren (age 4 and 7) who live with her daughter and son-in-law Her boyfriend lives in [place] HFpEF, DM2, HTN, Sleep Apnea (unable to [...] program here and refer her to our legal billing specialist who also has expertise in physical [...] tongue once daily., Disp: , Rfl: CALCIUM CRB&OYL-D6-IAD98-GENIS ORAL, Take 2 tablets by mouth two [...] n/a -HTN: still on medications -Diabetes: seeing glass cylinder flanger in December, hopes to eliminate Metformin then as recent A1c was normal Return to bariatric clinic in 6 months for 1 year follow up visit See your primary care provider for adjusting any other medications. Call if any abdominal pain, n/v/d or other issues. Pt agrees to plan and will call and/or send [employer] message if any issues. Start time 2:45, end time 3:10. I spent a total of 25 minutes face to face with this patie nt. Over 50% of visit was in counseling. HILDA Davalos Bariatric Surgery Nurse Practitioner [facility] | [address] | [place], [place] | [address] | documented in this encounter Plan of Treatment +--------+ + + + + | Date | Type | Specialty | Care Team | Description | +--------+ + + + + | 05/13/ | Office | Plastic Surgery | Archie Ybarra MD | | | 2018 | Visit | | [address] | | | | | | [place], [place] | | | | | | [address] | | | | | | [phone] | | | | | | | [...] | | | | [place], [place] | | | | | | [address] | | | | | | [phone] | | | | | | | [...] | + + + + + | [employer] | [address] | [place] [address] | | | SERVICES, CORE | CLARENCE [...] + + | [facility] | [address] [facility] | [place] [address] | | | SERVICES, CORE | PARK [...] INTFC | | | | determined by [employer] | | | | | | Laboratories. See | | | | | | Compliance Statement B: | | | | | | [employer].EasySize/CSPerformed | | | | | | by [employer],[address] | | | | | | [facility],[place] | | | | | | [address] | | | | | | [phone].[employer]. | | | | | | com, [...] [facility] | [address] | [place], [place] | | | UNIV PTH - INTFC | | [address] | | + + + + + [...] | | | | | determined by [employer] | | | | | | Laboratories. See | | | | | | Compliance Statement B: | | | | | | [employer].EasySize/CSPerformed | | | | | | by [employer],[address] | | | | | | Natalia Parson [facility],[place] | | | | | | [address] | | | | | | [phone].[employer]. | | | | | | comIsmael [...] [facility] | [address] | [place], [place] | | | UNIV PTH - INTFC | | [address] | | + + + + + [...] [facility] | | | (YEN NOAH) | [facility],500 | | REG UNIV | | | SERUM | Natalia Parson, [facility],[place] | | PTH - INTFC | | | | [address] | | | | | | [phone].[employer]. | | | | | | EasySizeIsmael MD, | | | | | | [...] B: | | | | | | [employer].EasySize/ | | | | + + + + + + + + | Specimen | + + | Blood - Blood | | (substance) | + + + + + + + | Performing | Address | City/State/Zipcode | Phone Number | | Organization | | | | + + + + + | [facility] | [address] | [place], [place] | | | UNIV PTH - INTFC | | [address] | | + + + + + [...] + | [facility] | [address] | [place] [address] | | | SERVICES, CORE | CLARENEC [...] [facility] | [address] | [place] [address] | | | SERVICES, LYDIA | PARK [...] [facility] | | | | | | Charitas. See | | | | | | Compliance Statement B: | | | | | | [employer].EasySize/CSPerformed | | | | | | by AB[employer],[address] | | | | | | Natalia Parson, [facility],[place] | | | | | | [address] | | | | | | [phone].[employer]. | | | | | | [facility], Ismael Willis MD, | | | [...] [facility] | [address] | [place], [place] | | | UNIV PTH - INTFC | | [address] | | + + + + + [...] + + | [facility] | [address] [facility] | [place] [address] | | | SERVICES, CORE | PARK [...] | | | | | determined by [employer] | | | | | | Laboratories. See | | | | | | Compliance Statement B: | | | | | | [employer].com/CSPerformed | | | | | | by [employer],[address] | | | | | | [facility],[place] | | | | | | [address] | | | | | | [phone].[employer]. | | | | | | [facility], Ismael Willis MD, | | | [...] [facility] | [address] | [place], [place] | | | UNIV PTH - INTFC | | [address] | | + + + + + [...] [facility] | [address] | [place] [address] | | | SERVICES, CORE | PARK [...] [facility] | [address] [facility] | [place] [address] | | | SERVICES, SPECIAL | CLARENCE [...] | 50 - 200 ng/mL | [facility] | | | | Female [...] | + + + + + | [employer] | [address] | [place] [address] | | | LYDIA RANGEL | CLARENCE [...] at | | | | | | [email or web address] | | | | | | med by [facility] | | | | | | Laboratories,[address] | | | | | | [place] [address] | | | | | | [phone].Mendorlab. | | | | | | Ismael [...] [facility] | [address] | [place], [place] | | | UNIV PTH - INTFC | | [address] | | + + + + + [...] [facility] | [address] | [place] [address] | | | SERVICES, CORE | CLARENCE [...]
--- OUTSIDE RECORDS SUMMARY | ~2019-05-10 | XMS | Encounter Summary ---
Demographics + + + | Address | [address] | | | [place] [address] | + + + | Home Phone [...] + | Katalina Padilla | ECON | [address] | | | | | [place], [place] | | | | | [address] | | + + + + + | Ellie Vang | ECON | Unknown | | + + + + + Care Team Providers + +------+ + | Care Volunteer Services Supervisor Name | Role | Phone | + +------+ + | Fadi Goodrich DO | PCP | | + +------+ + Encounter Details +--------+ + + + + | Date | Type | Department | Care Team | Description | +--------+ + + + + | 12/31/ | Abstract | Digestive Health | Hernandez Brian, | | | 2012 | | Center at [facility] [address] | MD [address] | | | | | [address] | [facility] | | | | | Mailcode: Center | [place], [place] | | | | | [facility] Health and | [address] | | | | | [facility] 2 | [phone] | | | | | [place], [place] | | | | | | [address] | | | | | | [phone] | | | +--------+ + + + [...] [address] | | | | | | [place], [place] | | | | | | [address] | | | | | | [phone] | | | | | | | | +--------+ + + + + | 06/27/ | Telephone-S | Pre-operative | | | | 2019 | cheduled | Medicine | | | +--------+ + + + + | 06/30/ | Office | Cardiology | Randell Franks, | | | 2019 | Visit | | [address] | | | | | | [place], [place] | | | | | | [address] | | | | | | [phone] | | | | | | | | +--------+ + + + + | 07/08/ | Procedure | Surgery | | | | 2018 | Pass | | | | +--------+ + + + + documented as of this encounter Visit Diagnoses Not on filedocumented in this encounter"
--- OUTSIDE RECORDS SUMMARY | ~2019-05-10 | XMS | Encounter Summary ---
Demographics + + + | Address | [address] | | | [place] [address] | + + + | Home Phone [...] [place], [place] | | | | | [address] | | + + + + + | Ellie Vang | ECON | Unknown | | + + + + + Care Team Providers + +------+ + | Care Wood Crew Supervisor Name | Role | Phone | [...] | | | | | bypass | [place], | Mailcode: | | | | | Nausea and | [place] | [address] [facility] | | | | | vomiting, | [address] | Hospital | | | | | intractabili | Phone: | [place], [place] | | | | | ty of | | [address] | | | | | vomiting not | Fax: | Phone: | | | | | specified, | [phone] | [phone] | | | | | unspecified | | Fax: | | | | | vomiting | | [phone] | | | | | type | [...] | | | | | | CONTRAST [place] | | | | | | | CT SCAN OF | | | | | | | ABDOMEN | | | | | | | CONTRAST NM | | | | | | [...] | | | | | bypass | [place], | Mailcode: | | | | | Nausea and | [place] | [address] [facility] | | | | | vomiting, | [address] | Hospital | | | | | intractabili | Phone: | [place], [place] | | | | | ty of | | [address] | | | | | vomiting not | Fax: | Phone: | | | | | specified, | [phone] | [phone] | | | | | unspecified | | Fax: | | | | | vomiting | | [phone] | | | | | type | [...] | | | | | | CONTRAST [place] | | | | | | | CT SCAN OF | | | | | | | ABDOMEN | | | | | | | CONTRAST NM | | | | | | [...] 2019 | Encounter | Services at [facility] | [facility] | | | | | [address] | [place], [place] | | | | | Lesly Gutiérrez Mailcode: | [address] | | | | | [address] [facility] | [phone] | | | | | [place], [place] | | | | | | [address] | | | | | | [phone] | | | +--------+ + + + [...] | | 0 | | | | CRB&OHR-N0-IHK70-GEN | mouth two times | | | [...] | | | | | | [place], [place] | | | | | | [address] | | | | | | [phone] | | | | | | | | +--------+ + + + + | 06/27/ | Telephone-S | Pre-operative | | | | 2018 | cheduled | Medicine | | | +--------+ + + + + | 06/30/ | Office | Cardiology | Randell Franks, | | | 2018 | Visit | | [address] | | | | | | [place], [place] | | | | | | [address] | | | | | | [phone] | | | | | | | [...]
--- OUTSIDE RECORDS SUMMARY | ~2019-05-10 | XMS | Encounter Summary ---
Demographics + + + | Address | [address] | | | [place] [address] | + + + | Home Phone [...] [place], [place] | | | | | [address] | | + + + + + | Ellie Vang | ECON | Unknown | | + + + + + Care Team Providers + +------+ + | Care Mapper Name | Role | Phone | + +------+ + | Fadi Goodrich DO | PCP | | + +------+ + Encounter Details +--------+---------+ + + + | Date | Type | Department | Care Team | Description | +--------+---------+ + + + | 02/22/ | Office | Preoperative | Gay Hoff, | Preop examination | | 2018 | Visit | [facility] at | DNP,ANP [address] | (Primary Dx) | | | | [facility] | [address] | | | | | [address] | [place], [place] | | | | | Mail Code: OC8PM | [address] | | | | | [facility] | [phone] | | | | | and Healing, | | | | | | Building 2 | | | | | | [place], [place] | | | | | | [address] | | | | | | [phone] | | | +--------+---------+ + + + [...] or walk. Surgery check-in location: Admitting - [facility], ninth floor lobby Surgery Check in Time: [...] office hours, call the [facility] stem processing machine operator at [phone] and ask them to page him or [...] - 03/01/2018 HISTORY OF PRESENT ILLNESS: Elzbieta Cirstina is a 42 y.o. female here for [...] function per TTE ( 02/16/2017) from [facility] [employer]: Improved and stable. T2DM - controlled with [...] renal failure no electrolyte abnormalities no dialysis Urology/Licensed Occupational Therapy Assistant: Within Defined Limits except as noted below [...] mg by mouth two times daily. CALCIUM CRB&MCI-U5-VLR37-GENIS ORAL Take 2 tablets by mouth two [...] index of 70 and over in adult ([facility]) Myalgia and myositis Nausea Neck pain Numbness Osteoarthritis of knee Palpitations Pneumonia Shortness of breath Staphylococcal infection Stroke ([facility]) TIA (transient ischemic attack) due [...] 98ms, QTC 460ms, TTE ( 02/16/2017) - [employer] 1. Overall left ventricular systolic function is normal with, an EF between 60 - 65 %. 2. The right ventricle is normal in size and function. 3. No significant valvular abnormalities are noted. 4. In comparison to the previous (technically difficult) echocardiographic study done 01/01, no signfiicant changes are noted. TTE (02/17/2016) - [employer] Conclusions 1. There is normal left ventricular [...] and resp iratory change. TTE (11/07/2015) - [facility] Final Impressions: 1. The interpretation of images [...] d function per TTE ( 02/16/2017) form [facility]. Improved and stable. - Confirmed with [...] to bring her own apparatus for [facility]. GERD - On omeprazole. Chronic Fluid [...] to this patient's care. Gay Hoff, ERENDIRA,ANP [facility] PREOPER[facility]IVE [facility]ICINE [facility]IN[facility] AT [facility] 4TH FLOOR [address] [facility] [address] I spent time (45 minutes, [...] [place] | | | | | | [address] | | | | | | [phone] | | | | | | | [...] [place] | | | | | | [address] | | | | | | [phone] | | | | | | | [...] + +--------+ + + | COMMUNICATION TO [facility] | Procedures | Routin | Preop examination | Ordered: 02/22/2018 | | LAB DRAW | | e | | | + + +--------+ + + documented as of this encounter Procedures + +--------+ + + + | Procedure Name | Priori | Date/Time | Associated Diagnosis | Comments | | | ty | | | | + +--------+ + + + | [place] COLLECTION VENOUS | Routin | 02/22/2018 | [...] [facility] | [address] | [place] [address] | | | SERVICES, CORE | PARK [...] + + | [facility] | [address] | [place] [address] | | | CLAIRE | CLARENCE BONNER [...] + | [facility] | [address] | [place] [address] | | | SERVICES, | [address] [...] [facility] | | considered for monitoring terminal computer operator glycemic control in patients with: | [...] | + + + + + | [employer] | [address] | [place] [address] | | | SERVICES, SPECIAL | CLARENCE [...] + + | [facility] | [address] | [place] [address] | | | SERVICES, LYDIA | CLARENCE [...] [facility] | [address] | [place], [place] | | | CARDIOLOGY | [address] | [address] | | + + + + + documented in this encounter Visit Diagnoses + + | Diagnosis | + + | Preop examination - Primary Preoperative examination, unspecified | + + documented in this encounter
--- OUTSIDE RECORDS SUMMARY | ~2019-05-10 | XMS | Encounter Summary ---
Demographics + + + | Address | [address] | | | [place] [address] | + + + | Home Phone [...] + | Katalina Padilla | ECON | [address] | | | | | [place], [place] | | | | | [address] | | + + + + + | Ellie Vang | ECON | Unknown | | + + + + + Care Team Providers + +------+ + | Care Business Broker Name | Role | Phone | + +------+ + | Fadi Goodrich DO | PCP | | + +------+ + Encounter Details +--------+ + + + + | Date | Type | Department | Care Team | Description | +--------+ + + + + | 10/19/ | Abstract | Digestive Health | Clinic, Surgery | | | 2017 | | [place] at [facility] [address] | | | | | | [address] | | | | | | Mailcode: [place] | | | | | | [facility] Health and | | | | | | [facility] 2 | | | | | | [place], [place] | | | | | | [address] | | | | | | [phone] | | | +--------+ + + + [...] [address] | | | | | | [place], [place] | | | | | | [address] | | | | | | [phone] | | | | | | | | +--------+ + + + + | 06/27/ | Telephone-S | Pre-operative | | | | 2019 | cheduled | Medicine | | | +--------+ + + + + | 06/30/ | Office | Cardiology | Randell Franks, | | | 2018 | Visit | | [address] | | | | | | [place], [place] | | | | | | [address] | | | | | | [phone] | | | | | | | | +--------+ + + + + | 07/08/ | Procedure | Surgery | | | | 2018 | Pass | | | | +--------+ + + + + documented as of this encounter Visit Diagnoses Not on filedocumented in this encounter"
--- OUTSIDE RECORDS SUMMARY | ~2019-05-10 | XMS | Encounter Summary ---
Demographics + + + | Address | [address] | | | [place] [address] | + + + | Home Phone [...] [place], [place] | | | | | [address] | | + + + + + | Ellie Vang | ECON | Unknown | | + + + + + Care Team Providers + +------+ + | Care Cushion Stuffer Name | Role | Phone | + [...] at [facility] [address] | AGACNP [address] | | | | | [address] | [place], [place] | | | | | Mailcode: [place] | [address] | | | | | for [facility] and | | | | | | [address] [address] | | | | | | [place], [place] | | | | | | [address] | | | | | | | [...] [address] | | | | | | [place] | | | | | | [address] | | | | | | [phone] | | | | | | | [...] | | | | | [place], [place] | | | | | | [address] | | | | | | [phone] | | | | | | | | +--------+ + + + + | 07/08/ | Procedure | Surgery | | | | 2019 | Pass | | | | +--------+ + + + + documented as of this encounter Visit Diagnoses Not on filedocumented in this encounter"
--- OUTSIDE RECORDS SUMMARY | ~2019-05-10 | XMS | Encounter Summary ---
Demographics + + + | Address | [address] | | | [place] [address] | + + + | Home Phone [...] [place], [place] | | | | | [address] | | + + + + + | Ellie Vang | ECON | Unknown | | + + + + + Care Team Providers + +------+ + | Care President Trust Company Name | Role | Phone | + [...] at [facility] | [address] | Request ([employer] [address] | | | | [address] | Ave [facility] [place] | mg) | | | | Mailcode: [place] | [address] | | | | | [facility] | [phone] | | | | | and [place], | | | | | | [address] | | | | | | [place], [place] | | | | | | [address] | | | | | | [phone] | | | +--------+ + + + [...] [address] | | | | | | [place], [place] | | | | | | [address] | | | | | | [phone] | | | | | | | [...] | | | | | [place], [place] | | | | | | [address] | | | | | | [phone] | | | | | | | | +--------+ + + + + | 07/08/ | Procedure | Surgery | | | | 2019 | Pass | | | | +--------+ + + + + documented as of this encounter Visit Diagnoses Not on filedocumented in this encounter"
--- OUTSIDE RECORDS SUMMARY | ~2019-05-10 | XMS | Encounter Summary ---
Demographics + + + | Address | [address] | | | [place] [address] | + + + | Home Phone [...] [place], [place] | | | | | [address] | | + + + + + | Ellie Vang | ECON | Unknown | | + + + + + Care Team Providers + +------+ + | Care Packer Denture Name | Role | Phone | + [...] | | [address] | [place], [place] | (Primary Dx); | | | | Mailcode: Center | [address] | Ventral hernia | | | | for Health and | [phone] | without obstruction | | | | Healing, Building [address] | | or gangrene; Mixed | | | | [place], [place] | | hyperlipidemia; | | | | [address] | | 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[phone] | | type 2 without | | [...] is doing Refill oxycodone Rx +Take acid pants cutter for first 3 mos, then wean off [...] to POC and [facility] if any issues. documented [...] times daily. , Disp: , Rfl: CALCIUM CRB&VCL-N4-PYG06-GENIS ORAL, Take 2 tablets by mouth two [...] Brian Incisional hernia repair 03/01/2015 [facility]/ Dr. Cantu. Primary fascial closure [...] History Narrative Updated 11/09/15 She lives in [place] with her mother and her sister (also [...] Increase torsemide to pre-surgical dose +Take acid pants cutter for first 3 mos, then wean off [...] she will make an appointment with her Pipe Out Worker to discuss insulin dosing and CBGs 10. [...] to POC and will call or send [facility] ss[facility] if any issues. Start time 15:35, end time 15:55. I spent a total of 20 minutes face to face with this pat ient. Over 50% of visit was in counseling. ~ 10 minutes of additional time spent reviewing chart prior to visit and documenting after this visit. Ronna Clarke DNP ACNP WEB CONTENT EDITOR Bariatric Surgery Nurse Practitioner [facility][note 3] | [address] | [place], [place] | [address] | documented in this e ncounter Plan of Treatment +--------+ + + + + | Date | Type | Specialty | Care Team | Description | +--------+ + + + + | 05/13/ | Office | Plastic Surgery | Archie Ybarra MD | | | 2018 | Visit | | [address] | | | | | | [place], [place] | | | | | | [address] | | | | | | [phone] | | | | | | | | +--------+ + + + + | 06/27/ | Telephone-S | Pre-operative | | | | 2018 | cheduled | Medicine | | | +--------+ + + + + | 06/30/ | Office | Cardiology | Randell Franks, | | | 2019 | Visit | | [address] | | | | | | [place] [facility] [place] | | | | | | [address] | | | | | | [phone] | | | | | | | [...] + | [facility] | [address] | [place] [address] | | | [place] | | | | + + + [...]
--- OUTSIDE RECORDS SUMMARY | ~2019-05-10 | XMS | Encounter Summary ---
Demographics + + + | Address | [address] | | | [place] [address] | + + + | Home Phone [...] Providers + +------+ + | Care Tank House Operator Helper Name | Role | Phone | + +------+ + | Fadi Goodrich DO | PCP | | + +------+ + Encounter Details +--------+ + + + + | Date | Type | Department | Care Team | Description | +--------+ + + + + | 10/27/ | Telephone | [facility] at [facility] | Leslie Mistry, | | | 2017 | | Floor [address] | PhD [address] [facility] | | | | | [address] Mailcode: | Ryan Grace | | | | | [address] [place], [place] | | | | | Health and Healing, | [address] | | | | | [facility] | [phone] | | | | | Floor [place], [place] | | | | | | [address] | | | | | | [phone] | | | +--------+ + + + [...] [address] | | | | | | [place], [place] | | | | | | [address] | | | | | | [phone] | | | | | | | [...] [place] | | | | | | [address] | | | | | | [phone] | | | | | | | | +--------+ + + + + | 07/08/ | Procedure | Surgery | | | | 2018 | Pass | | | | +--------+ + + + + documented as of this encounter Visit Diagnoses Not on filedocumented in this encounter"
--- OUTSIDE RECORDS SUMMARY | ~2019-05-10 | XMS | Encounter Summary ---
Demographics + + + | Address | [address] | | | [place] [address] | + + + | Home Phone [...] [place], [place] | | | | | [address] | | + + + + + | Ellie Vang | ECON | Unknown | | + + + + + Care Team Providers + +------+ + | Care Scheduler Name | Role | Phone | [...] | | bypass | [place], [place] | [facility] Center | | | | | Nausea and | [address] | for Health | | | | | vomiting, | Phone: | and Healing, | | | | | intractabili | | Building 2 | | | | | ty of | Fax: | [place], [place] | | | | | vomiting not | [phone] | [address] | | | | | specified, | | Phone: | | | | | unspecified | | [phone] | | | | | vomiting | | Fax: | | | | | type | | [phone] | | | | | Decreased | [...] | | | | | | DILATION [place] | | | | | | | UPPER GI | | | | | | | ENDOSCOPY,BI | | | | | | | OPSY NC UP | | | | | | [...] | 2017 | | Center at [facility] [address] | MD [address] | | | | | [address] | [place], [place] | | | | | Mailcode: [place] | [address] | | | | | for Health and | | | | | | [place] [address] | | | | | | [place], [place] | | | | | | [address] | | | | | | [phone] | | | +--------+ + + + [...] [place] | | | | | | [address] | | | | | | [phone] | | | | | | | [...] | | | | | Ave [place], [place] | | | | | | [address] | | | | | | [phone] | | | | | | | [...]
--- OUTSIDE RECORDS SUMMARY | ~2019-05-10 | XMS | Encounter Summary ---
Demographics + + + | Address | [address] | | | [place] [address] | + + + | Home Phone [...] [place], [place] | | | | | [address] | | + + + + + [...] | | | | | | [place] [address] | | | +--------+ + + + [...] [address]ann[address] | | | | | | [place], [place] | | | | | | [address] | | | | | | [phone] | | | | | | | [...] | | | | | [place], [place] | | | | | | [address] | | | | | | [phone] | | | | | | | | +--------+ + + + + | 07/08/ | Procedure | Surgery | | | | 2019 | Pass | | | | +--------+ + + + + documented as of this encounter Visit Diagnoses Not on filedocumented in this encounter"
--- OUTSIDE RECORDS SUMMARY | ~2019-05-10 | XMS | Encounter Summary ---
Demographics + + + | Address | [address] | | | [place] [address] | + + + | Home Phone [...] [place], [place] | | | | | [address] | | + + + + + | Ellie Vang | ECON | Unknown | | + + + + + Care Team Providers + +------+ + | Care Logistics Clerk Name | Role | Phone | [...] | | | | | obstruction | [place], | Mailcode: | | | | | or gangrene | [place] | Center for | | | | | Abdominal | [address] | Health and | | | | | pain, | Phone: | Healing, | | | | | unspecified | | Building 2 | | | | | abdominal | Fax: | [place], [place] | | | | | location | [phone] | [address] | | | | | Procedures | | Phone: | | | | | CONSULT TO | | [phone] | | | | | SURGERY - | | Fax: | | | | | GENERAL | | [phone] | + +--------+ + + + + [...] | | [address] | Ave [place], [place] | | | | | Mailcode: [place] | [address] | | | | | for Health and | | | | | | [facility] 2 | | | | | | [facility] [place] | | | | | | [address] | | | | | | | [...] | | | | | | [place], [place] | | | | | | [address] | | | | | | [phone] | | | | | | | [...] | | | | [place] [facility] [place] | | | | | | [address] | | | | | | [phone] | | | | | | | [...]
--- OUTSIDE RECORDS SUMMARY | ~2019-05-10 | XMS | Encounter Summary ---
Demographics + + + | Address | [address] | | | [place] [address] | + + + | Home Phone [...] [place], [place] | | | | | [address] | | + + + + + | Ellie Vang | ECON | Unknown | | + + + + + Care Team Providers + +------+ + | Care Trackman Name | Role | Phone | + [...] | | | | | | [place] | | | | | | [place] [address] | | | +--------+ + + + [...] [address]ann[address] | | | | | | [place], [place] | | | | | | [address] | | | | | | [phone] | | | | | | | [...] | | | | | [place], [place] | | | | | | [address] | | | | | | [phone] | | | | | | | | +--------+ + + + + | 07/08/ | Procedure | Surgery | | | | 2019 | Pass | | | | +--------+ + + + + documented as of this encounter Visit Diagnoses Not on filedocumented in this encounter"
--- OUTSIDE RECORDS SUMMARY | ~2019-05-10 | XMS | Encounter Summary ---
Demographics + + + | Address | [address] | | | [place] [address] | + + + | Home Phone [...] [place], [place] | | | | | [address] | | + + + + + | Ellie Vang | ECON | Unknown | | + + + + + Care Team Providers + +------+ + | Care Paper Counter Name | Role | Phone | + [...] | | | 2014 | Event | [facility] | MD Raza [address] | | | | | Admitting Desk | [address] | | | | | Located on the 9 | [place], [place] | | | | | floor [address] | [address] | | | | | [address] | [phone] | | | | | [place], [place] | | | | | | [address] | Marcial Brunner CRNA | | | | | | [address] | | | | | | Lesly Gutiérrez [place], | | | | | | [place] [address] | | | | | | [phone] | | | | | | | [...] - | excoriation; Yes; Bilateral:, | Elke Davsi RN | Discontinued After | | Wound [...] Flannery | | | | | | [place], [place] | | | | | | [address] | | | | | | [phone] | | | | | | | [...] | | | | | Al[place] Del[place], [place] | | | | | | [address] | | | | | | [phone] | | | | | | | [...]
--- OUTSIDE RECORDS SUMMARY | ~2019-05-10 | XMS | Encounter Summary ---
Demographics + + + | Address | [address] | | | [place] [address] | + + + | Home Phone [...] [place], [place] | | | | | [address] | | + + + + + | Ellie Vang | ECON | Unknown | | + + + + + Care Team Providers + +------+ + | Care Inspector Aide Name | Role | Phone | + +------+ + | Fadi Goodrich DO | PCP | | + +------+ + Encounter Details +--------+ + + + + | Date | Type | Department | Care Team | Description | +--------+ + + + + | 12/12/ | Emergency | [facility] Emergency | | | | 2014 - | | Department [address] | | | | | [address] | | | | 05/20/ | | [facility] | | | | 2014 | | [place], [place] | | | | | | [address] | | | | | | [phone] | | | +--------+ + + + [...] [address]annery | | | | | | [place], [place] | | | | | | [address] | | | | | | [phone] | | | | | | | [...] | | | | | [place] Del[place], [place] | | | | | | [address] | | | | | | [phone] | | | | | | | | +--------+ + + + + | 07/08/ | Procedure | Surgery | | | | 2019 | Pass | | | | +--------+ + + + + documented as of this encounter Visit Diagnoses Not on filedocumented in this encounter"
--- OUTSIDE RECORDS SUMMARY | ~2019-05-10 | XMS | Encounter Summary ---
Demographics + + + | Address | [address] | | | [place] [address] | + + + | Home Phone [...] [place], [place] | | | | | [address] | | + + + + + | Ellie Vang | ECON | Unknown | | + + + + + Care Team Providers + +------+ + | Care Product Support Consultant Name | Role | Phone | [...] | | | [facility], | [place], [place] | | | | | | Building 2 | [address] | | | | | | [place], [place] | Phone: | | | | | | [address] | [phone] | | | | | | Phone: | Fax: | | | | | | [phone] | [phone] | | | | | | Fax: | | | | | | | [phone] | | +--------+--------+ + + + + [...] | | | without | SURGICAL | [facility] | | | | | mention of | CLINIC [address] [place], | | | | | obstruction | [address] | [place] | | | | | or gangrene | AVE | [address] | | | | | | [place], | Phone: | | | | | | [place] [address] | [phone] | | | | | | Phone: | Fax: | | | | | | [phone] | [phone] | | | | | | Fax: | | | | | | | [phone] | | +--------+--------+ + + + + [...] | | | | Mailcode: Center | [place], [place] | | | | | [facility] and | [address] | | | | | [facility], [facility] 2 | [phone] | | | | | [place], [place] | | | | | | [address] | | | | | | [phone] | | | +--------+---------+ + + + [...] colonoscopy), but [facility] mentioned this was probably an [...] coordination for [facility] Medicaid & [facility] Bariatric program for wt loss. 3. No [...] material. 4. Continue to meet with her Dice Manager in the outpatient setting for diet and [...] has been instructed to f/u w/ her scraper burrer for a strict diet of <1000 kcal/d [...] teaching. Howie Faria MD MIS/Bariatric Fellow, Pager 39674 [facility] Attending provider: Hernandez Brian MD [...] [address]annery | | | | | | [place], [place] | | | | | | [address] | | | | | | [phone] | | | | | | | [...] [place] Delia [facility] [place] | | | | | | [address] | | | | | | [phone] | | | | | | | [...] | | | | rylie / SEVERIANO DOS SANTOS | | | [...]
--- OUTSIDE RECORDS SUMMARY | ~2019-05-10 | XMS | Encounter Summary ---
Demographics + + + | Address | [address] | | | [place] [address] | + + + | Home Phone [...] [place], [place] | | | | | [address] | | + + + + + | Ellie Vang | ECON | Unknown | | + + + + + Care Team Providers + +------+ + | Care Data Entry Representative Name | Role | Phone | [...] | | 2017 | Event | [facility] | Joann Person MD,PhD | | | | | Admitting Desk | [address] | | | | | Located on the 9 | [facility] [place] | | | | | floor [address] [facility] | [address] | | | | | [address] | [phone] | | | | | [place], [place] | | | | | | [address] | Graham Honeycutt, | | | | | | ARMOURED CAR ESCORT [address] | | | | | | [address] | | | | | | [place], [place] | | | | | | [address] | | | | | | [phone] | | | | | | | [...] | | Endotracheal Tube; 7; Oral; | ARMOURED CAR ESCORT | ARMOURED CAR ESCORT | | | Cuffed; 06/23/18; 1542 | [...] [place] | | | | | | [address] | | | | | | [phone] | | | | | | | [...] | | | | | [place] Del[place], [place] | | | | | | [address] | | | | | | [phone] | | | | | | | [...]
--- OUTSIDE RECORDS SUMMARY | ~2019-05-10 | XMS | Encounter Summary ---
Demographics + + + | Address | [address] | | | [place] [address] | + + + | Home Phone [...] [place], [place] | | | | | [address] | | + + + + + | Ellie Vang | ECON | Unknown | | + + + + + Care Team Providers + +------+ + | Care Cnc Lathe Machine Operator Name | Role | Phone [...] 2016 | | Preventive at [facility] | [address] | ([place]) | | | | [address] | Ave [place], [place] | | | | | Mailcode: [place] | [address] | | | | | [facility] | [phone] | | | | | and [address], | | | | | | Building 1 | | | | | | [place], [place] | | | | | | [address] | | | | | | [phone] | | | +--------+ + + + [...] Flannery | | | | | | [place], [place] | | | | | | [address] | | | | | | [phone] | | | | | | | [...] | | | | | [place] Del[place], [place] | | | | | | [address] | | | | | | [phone] | | | | | | | | +--------+ + + + + | 07/08/ | Procedure | Surgery | | | | 2019 | Pass | | | | +--------+ + + + + documented as of this encounter Visit Diagnoses Not on filedocumented in this encounter"
--- OUTSIDE RECORDS SUMMARY | ~2019-05-10 | XMS | Encounter Summary ---
Demographics + + + | Address | [address] | | | [place] [address] | + + + | Home Phone [...] [place], [place] | | | | | [address] | | + + + + + | Ellie Vang | ECON | Unknown | | + + + + + Care Team Providers + +------+ + | Care Therapeutic Mentor Name | Role | Phone | + [...] SW | | | | | ([facility]) | [address] | [address] | | | | | Procedures | [place], [place] | [place], [place] | | | | | CONSULT TO | [address] | [address] | | | | | CAR | Phone: | Phone: | | | | | PREVENTATIVE | [phone] | [phone] | | | | | [facility] - | Fax: | Fax: | | | | | LIPIDS | [phone] | [phone] | +--------+--------+ + + + + Reason [...] | | 2 diabetes | [place], | [place], [place] | | | | | mellitus | [place] [address] | [address] | | | | | without | Phone: | Phone: | | | | | complication | [phone] | [phone] | | | | | (HCC) | Fax: | Fax: | | | | | Procedures | [phone] | [phone] | | | | | DE EST | | | | | | [...] | 2017 | Visit | Preventive at [facility] | [address] | hypertension | | | | [address] | Ave [facility] [place] | (Primary Dx); Right | | | | Mailcode: CH9A | [address] | heart failure (HCC) | | | | [facility] | [phone] | | | | | and Healing, | | | | | | Building 1 | | | | | | [place], [place] | | | | | | [address] | | | | | | [phone] | | | +--------+---------+ + + + [...] 1 tablet by mouth once daily CALCIUM [id number]-GENIS ORAL Take 2 tablets by mouth two [...] [place] | | | | | | [address] | | | | | | [phone] | | | | | | | [...] [place] | | | | | | [address] | | | | | | [phone] | | | | | | | [...]
--- OUTSIDE RECORDS SUMMARY | ~2019-05-10 | XMS | Encounter Summary ---
Demographics + + + | Address | [address] | | | [place] [address] | + + + | Home Phone [...] [place], [place] | | | | | [address] | | + + + + + | Ellie Vang | ECON | Unknown | | + + + + + Care Team Providers + +------+ + | Care Dye House Supervisor Name | Role | Phone | [...] | HA Roldan | | | with LIME KILN TENDER | | hypertension | [address] | [address] | | | | | Right | [address] | [address] | | | | | heart | [place], [place] | [place], | | | | | failure | [address] | [place] | | | | | ([facility]) Type | Phone: | [address] | | | | | 2 diabetes | [phone] | | | | | | mellitus | Fax: | | | | | | without | [phone] | | | | | | complication | | | | | | | , with | | | | | | | long-term | | | | | | | current use | | | | | | | of insulin | | | | | | | ([facility]) | | | +--------+ + + + + + Encounter Details +--------+---------+ + + + | Date | Type | Department | Care Team | Description | +--------+---------+ + + + | 02/02/ | Office | Digestive Health | [address] | Morbid obesity with | | 2017 | Visit | Center at [facility] [address] | [address] | BMI of 70 and over, | | | | [address] | Lesly Gutiérrez [place], | adult ([facility]) (Primary | | | | Mailcode: Center | [place] [address] | Dx); Type 2 | | | | for Health and |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 | | | | Healing, Building [address] | | without | | | | [place], [place] | | complication, with | | | | [address] | | long-term current | | | | [phone] | | use of insulin | | | | | | ([facility]); Chronic | | | | | | diastolic heart | | | | | | failure ([facility]) | +--------+---------+ + + + [...] of Visit: 10:03 to 10:30 (27 minutes ilot-yk-ljrx with patient) (1 hour ap point not [...] eat like she should, tries to eat tilting head band sawyer things and this does not help. Food [...] vagina Allergic rhinitis Anemia Anxiety Bipolar disorder ([facility]) Chronic wound infection of abdomen [...] post-surgery diet progression. 4. Call or send [employer] message to dietitian with any questions. Contact information was provided. Follow up with dietitian prior to surgery (take 2 Weight management classes as part of 6 mo [facility] supervised diet). [address], [facility], [facility] Bariatrics [phone] documented in this enco unter Plan of Treatment +--------+ + + + + | Date | Type | Specialty | Care Team | Description | +--------+ + + + + | 05/13/ | Office | Plastic Surgery | Archie Ybarra MD | | | 2018 | Visit | | [address] | | | | | | [place] | | | | | | [address] | | | | | | [phone] | | | | | | | [...] | | | | | [place], [place] | | | | | | [address] | | | | | | [phone] | | | | | | | [...] | | | PDT | over, adult ([facility]) | | | | | | Type 2 diabetes | | | | | | mellitus without | | | | | | complication, with | | | | | | long-term current | | | | | | use of insulin ([facility]) | | | | | | Chronic diastolic | | | | | | heart failure ([facility]) | | + +--------+ + [...]
--- OUTSIDE RECORDS SUMMARY | ~2019-05-10 | XMS | Encounter Summary ---
Demographics + + + | Address | [address] | | | [place] [address] | + + + | Home Phone [...] [place], [place] | | | | | [address] | | + + + + + | Ellie Vang | ECON | Unknown | | + + + + + Care Team Providers + +------+ + | Care Business Sales Consultant Name | Role | Phone [...] | | | | | essential | [address] | [address] | | | | | hypertension | [address], | Ave | | | | | Type II or | [address] | [place], [place] | | | | | unspecified | [place], [place] | [address] | | | | | type | [address] | Phone: | | | | | diabetes | Phone: | [phone] | | | | | mellitus | [phone] | Fax: | | | | | without | Fax: | [phone] | | | | | mention of | [phone] | | | | | | complication [...] | Visit | Preventive at [facility] | [address] | mellitus (HCC) | | | | [address] | Ave [place], [place] | (Primary Dx) | | | | Mailcode: CH9A | [address] | | | | | [facility] | [phone] | | | | | and [address], | | | | | | Building [address] | | | | | | [place], [place] | | | | | | [address] | | | | | | [phone] | | | +--------+---------+ + + + [...] Wi ll discuss with Dr. Brian and pick up operator her best strategies for meeting weight loss [...] Flannery | | | | | | [place], [place] | | | | | | [address] | | | | | | [phone] | | | | | | | [...] | | | | | [place]ia [facility] [place] | | | | | | [address] | | | | | | [phone] | | | | | | | [...] [facility] | [address] | [place] [address] | | | SERVICES, SPECIAL | PARK [...]
--- OUTSIDE RECORDS SUMMARY | ~2019-05-10 | XMS | Encounter Summary ---
Demographics + + + | Address | [address] | | | [place] [address] | + + + | Home Phone [...] [place], [place] | | | | | [address] | | + + + + + | Ellie Vang | ECON | Unknown | | + + + + + Care Team Providers + +------+ + | Care Fisheries Manager Name | Role | Phone | [...] | | | [address] | [place], [place] | | | | | Mailcode: [place] | [address] | | | | | [facility] Health and | | | | | | [facility] 2 | | | | | | [place], [place] | | | | | | [address] | | | | | | | [...] [address]ann[address] | | | | | | [place], [place] | | | | | | [address] | | | | | | [phone] | | | | | | | | +--------+ + + + + | 06/27/ | Telephone-S | Pre-operative | | | | 2018 | cheduled | Medicine | | | +--------+ + + + + | 06/30/ | Office | Cardiology | Randell Franks, | | | 2018 | Visit | | [address] | | | | | | [place], [place] | | | | | | [address] | | | | | | [phone] | | | | | | | | +--------+ + + + + | 07/08/ | Procedure | Surgery | | | | 2018 | Pass | | | | +--------+ + + + + documented as of this encounter Visit Diagnoses Not on filedocumented in this encounter"
--- OUTSIDE RECORDS SUMMARY | ~2019-05-10 | XMS | Encounter Summary ---
Demographics + + + | Address | [address] | | | [place] [address] | + + + | Home Phone [...] + | Katalina Padilla | ECON | [address] | | | | | [place], [place] | | | | | [address] | | + + + + + | Ellie Vang | ECON | Unknown | | + + + + + Care Team Providers + +------+ + | Care Airport Maintenance Chief Name | Role | Phone | + +------+ + | Kenyatta Cardenas MD | PCP | | + +------+ + Encounter Details +--------+ + + + + | Date | Type | Department | Care Team | Description | +--------+ + + + + | 05/28/ | Documentati | Endoscopic | Lab, Gi Procedure | | | 2017 | on | Procedural Unit at | | | | | | [facility] | | | | | | [address] | | | | | | Mailcode: OC2L | | | | | | [facility] | | | | | | and Healing, | | | | | | Building 2 | | | | | | [place], [place] | | | | | | [address] | | | | | | [phone] | | | +--------+ + + + [...] Flann[address] | | | | | | [place], [place] | | | | | | [address] | | | | | | [phone] | | | | | | | [...] | | | | | [place], [place] | | | | | | [address] | | | | | | [phone] | | | | | | | | +--------+ + + + + | 07/08/ | Procedure | Surgery | | | | 2018 | Pass | | | | +--------+ + + + + documented as of this encounter Visit Diagnoses Not on filedocumented in this encounter"
--- OUTSIDE RECORDS SUMMARY | ~2019-05-10 | XMS | Encounter Summary ---
Demographics + + + | Address | [address] | | | [place] [address] | + + + | Home Phone [...] [place], [place] | | | | | [address] | | + + + + + | Ellie Vang | ECON | Unknown | | + + + + + Care Team Providers + +------+ + | Care Fur Cleaner Name | Role | Phone | [...] 2015 | Visit | Center at [facility] [address] | | (Primary Dx) | | | | [address] | | | | | | Mailcode: Center | | | | | | for Health and | | | | | | [facility] 2 | | | | | | [place], [place] | | | | | | [address] | | | | | | [phone] | | | +--------+---------+ + + + [...] of Class: 2:00 until 3:00 (60 minutes hoiv-lc-zznj with patient) OBJECTIVE: Height: Ht Readings from [...] or sharing information. Yes [address], [facility], [place] Pager# [phone] documented in this enc ounter Plan of Treatment +--------+ + + + + | Date | Type | Specialty | Care Team | Description | +--------+ + + + + | 05/13/ | Office | Plastic Surgery | Archie Ybarra MD | | | 2019 | Visit | | [address] | | | | | | [place], [place] | | | | | | [address] | | | | | | [phone] | | | | | | | | +--------+ + + + + | 06/27/ | Telephone-S | Pre-operative | | | | 2019 | cheduled | Medicine | | | +--------+ + + + + | 06/30/ | Office | Cardiology | Randell Franks, | | | 2018 | Visit | | [address] | | | | | | [place], [place] | | | | | | [address] | | | | | | [phone] | | | | | | | [...]
--- OUTSIDE RECORDS SUMMARY | ~2019-05-10 | XMS | Encounter Summary ---
Demographics + + + | Address | [address] | | | [place] [address] | + + + | Home Phone [...] [place], [place] | | | | | [address] | | + + + + + | Ellie Vang | ECON | Unknown | | + + + + + Care Team Providers + +------+ + | Care Boiler Coverer Name | Role | Phone | [...] 2012 | | Center at [facility] [address] | MD [address] | | | | | [address] | [facility] | | | | | Mailcode: Center | [place], [place] | | | | | [facility] Health and | [address] | | | | | [facility], [facility] 2 | [phone] | | | | | [place], [place] | | | | | | [address] | | | | | | [phone] | | | +--------+ + + + [...] [address] | | | | | | [place], [place] | | | | | | [address] | | | | | | [phone] | | | | | | | | +--------+ + + + + | 06/27/ | Telephone-S | Pre-operative | | | | 2019 | cheduled | Medicine | | | +--------+ + + + + | 06/30/ | Office | Cardiology | Randell Franks, | | | 2019 | Visit | | [address] | | | | | | [place], [place] | | | | | | [address] | | | | | | [phone] | | | | | | | | +--------+ + + + + | 07/08/ | Procedure | Surgery | | | | 2018 | Pass | | | | +--------+ + + + + documented as of this encounter Visit Diagnoses Not on filedocumented in this encounter"
--- OUTSIDE RECORDS SUMMARY | ~2019-05-10 | XMS | Encounter Summary ---
Demographics + + + | Address | [address] | | | [place] [address] | + + + | Home Phone [...] [place], [place] | | | | | [address] | | + + + + + | Ellie Vang | ECON | Unknown | | + + + + + Care Team Providers + +------+ + | Care Agile Scrum Master Name | Role | Phone | [...] Medical Records | | 2013 | | Sandy at [facility] [address] | [address] | Review ([facility] - | | | | [address] | [address] | OUTSIDE RECORDS) | | | | Mailcode: Sandy | [place], [place] | | | | | [facility] and | [address] | | | | | [place] [address] | [phone] | | | | | [place], [place] | | | | | | [address] | | | | | | [phone] | | | +--------+ + + + [...] [place] | | | | | | [address] | | | | | | [phone] | | | | | | | [...] | | | | | Al[place]ia [place], [place] | | | | | | [address] | | | | | | [phone] | | | | | | | | +--------+ + + + + | 07/08/ | Procedure | Surgery | | | | 2019 | Pass | | | | +--------+ + + + + documented as of this encounter Visit Diagnoses Not on filedocumented in this encounter"
--- OUTSIDE RECORDS SUMMARY | ~2019-05-10 | XMS | Encounter Summary ---
Demographics + + + | Address | [address] | | | [place] [address] | + + + | Home Phone [...] [place], [place] | | | | | [address] | | + + + + + | Ellie Vang | ECON | Unknown | | + + + + + Care Team Providers + +------+ + | Care Borematic Operator Name | Role | Phone | [...] | | | | | | [place] [address] | | | +--------+ + + + [...] [address]ann[address] | | | | | | [place], [place] | | | | | | [address] | | | | | | [phone] | | | | | | | [...] | | | | | Alma Delia [place], [place] | | | | | | [address] | | | | | | [phone] | | | | | | | | +--------+ + + + + | 07/08/ | Procedure | Surgery | | | | 2019 | Pass | | | | +--------+ + + + + documented as of this encounter Visit Diagnoses Not on filedocumented in this encounter"
--- OUTSIDE RECORDS SUMMARY | ~2019-05-10 | XMS | Encounter Summary ---
Demographics + + + | Address | [address] | | | [place] [address] | + + + | Home Phone [...] [place], [place] | | | | | [address] | | + + + + + | Ellie Vang | ECON | Unknown | | + + + + + Care Team Providers + +------+ + | Care Continuous Process Coffee Roaster Name | Role | Phone | [...] | | | | | Ventral | [address] | [facility] | | | | | hernia | Phone: | Stanley | | | | | without | [phone] | [address] | | | | | obstruction | Fax: | [place], | | | | | or gangrene | [phone] | [place] [address] | | | | | Mixed | | Phone: | | | | | hyperlipidem | | [phone] | | | | | ia Diabetes | | Fax: | | | | | mellitus | | [phone] | | | | | type 2 [...] | | | | | | | [place] UPPER GI | | | | | | | ENDOSCOPY,BI | | | | | | | OPSY [place] | | | | | | | [...] | | | | Mailcode: Center | [address] | Ventral hernia | | | | for Health and | [phone] | without obstruction | | | | Healing, Building 2 | | or gangrene; 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 documented in this [...] tongue once daily., Disp: , Rfl: CALCIUM CRB&MDZ-H7-TWR79-GENIS ORAL, Take 2 tablets by mouth two [...] nilesh limb 150 cm or less [facility] Social History Social History Marital status: Single Spouse name: N/A Number of children: 1 Years of education: N/A Occupational History disabled None Social History Main Topics Smoking status: Former Smoker Smokeless tobacco: Never Used Alcohol use No Drug use: No Sexual activity: Not on file Social History Narrative Updated 11/09/15 She lives in [place] with her mother and her sister (also her caregiver) lives in an apa rtment/duplex below. She has 2 grandchildren (age 4 and 7) who live with her daughter and son-in-law Her boyfriend lives in [place] HFpEF, DM2, HTN, Sleep Apnea (unable to [...] program here and refer her to our allergy specialist who also has expertise in physical [...] and documenting after this visit. Ronna SANTOSP AFTER SCHOOL PROGRAM DIRECTOR Bariatric Surgery Nurse Practitioner [facility] | [address] | [place], [place] | [address] | documented in this e ncounter Plan of Treatment +--------+ + + + + | Date | Type | Specialty | Care Team | Description | +--------+ + + + + | 05/13/ | Office | Plastic Surgery | Archie Ybarra MD | | | 2018 | Visit | | [address] | | | | | | [place], [place] | | | | | | [address] | | | | | | [phone] | | | | | | | [...] | | | | | [place], [place] | | | | | | [address] | | | | | | [phone] | | | | | | | [...] + + + | EXAM: Esophagram with laminate floor installer radiograph HISTORY: RYGB 03/01/2018, | [facility] | | vomiting/pain ever since COMPARISON: 04/27/2018 CT TECHNIQUE: | RADIOLOGY VOICE | | Head Sulfide Operator radiograph was performed. Single contrast exam of the esophagus, | RECOGNITION 2 | | gastric pouch, and gastrojejunostomy in upright positioning. | | | Radiation dose reduction technique was maximized where appropriate | | | using pulsed fluoroscopy and fluoro-store images. Fluoro Time 57 | | | second(s) FINDINGS: Head Sulfide Operator shows stone in the upper pole [...] AM PST EXAM: Esophagram | | with laminate floor installer radiograph HISTORY: RYGB 03/01/2018, vomiting/pain ever since COMPARISON: | | 04/27/2018 CT TECHNIQUE: Head Sulfide Operator radiograph was performed. Single contrast exam of the | | esophagus, gastric pouch, and gastrojejunostomy in upright positioning. Radiation dose | | reduction technique was maximized where appropriate using pulsed fluoroscopy and | | fluoro-store images. Fluoro Time 57 second(s) FINDINGS:Head Sulfide Operator shows stone in the upper | [...] + + + + | [facility] | [address] | [place] [address] | | | SERVICES, CORE | CLARENCE [...] | [facility] | | considered for monitoring snf glycemic control in patients with: | LABORATORY [...] + + | [facility] | [address] [facility] | [place] [address] | | | SERVICES, SPECIAL | PARK [...] | | | | | determined by [facility] | | | | | | Laboratories. See | | | | | | Compliance Statement B: | | | | | | Patient Engagement Systems.Control4/CSPerformed | | | | | | by [employer],500 | | | | | | Liliana Martinez, [facility] [place] | | | | | | [address] | | | | | | [phone].Patient Engagement Systems. | | | | | | [...] [facility] | [address] | [place], [place] | | | [facility] | | [address] | | + + + + + [...] + | [facility] | [address] | [place] [address] | | | LYDIA RANGEL | CLARENCE [...] + | [facility] | [address] | [place] [address] | | | SERVICES, CORE | CLARENCE [...] [facility] | [address] | [place] [address] | | | SERVICES, CORE | PARK [...] + + | [facility] | [address] | [place] [address] | | | SERVICES, CORE | CLARENCE [...] + + | [facility] | [address] | [place] [address] | | | SERVICES, CORE | CLARENCE [...] + + | [facility] | [address] | [place] [address] | | | SERVICES, CORE | CLARENCE [...]
--- OUTSIDE RECORDS SUMMARY | ~2019-05-10 | XMS | Encounter Summary ---
Demographics + + + | Address | [address] | | | [place] [address] | + + + | Home Phone [...] [place], [place] | | | | | [address] | | + + + + + | Ellie Vang | ECON | Unknown | | + + + + + Care Team Providers + +------+ + | Care Pharmaceutical Representative Name | Role | Phone | [...] UPPER ENDOSCOPY | | 2018 | | [facility] | [address] | | | | | Admitting Desk | [place], [place] | | | | | Located on the | [address] | | | | | floor [address] [facility] | [phone] | | | | | [address] | | | | | | [place], [place] | | | | | | [address] | | | +--------+---------+ + + + [...] the endoscopy department toll free ext. [phone] or After business hours or on weekends and holiday Hospital Plate Mounter toll free ext. [phone] and have the GI doctor contracting manager paged. The provider who performed your [...] | | 0 | | | | [id number]-GEN | mouth two times | | | [...] 2:35 PM PST PRE PROCEDURE NOTE: MR# [id number] Subjective: Elzbieta Cristina is a 43 y.o. [...] [address] | | | | | | [place], [place] | | | | | | [address] | | | | | | [phone] | | | | | | | [...] | | | | | Al[place] Del[place], [place] | | | | | | [address] | | | | | | [phone] | | | | | | | [...] -----+ | MRN: | [facility] | | [id number] Date: 06/23/2018Patient Name: Elzbieta Curtis #: | MORGAN Y | | [id number] of : 1975CSN: [id number] Type: | | | AmbulatoryRoom: SORProcedure: Upper GI | | | endoscopyIndications: Nausea with vomiting, Status post | | | Npfn-ss-UUvjsmwzdm: KALEB WILCOX MD (Doctor)JOSE | | | NASIMA Records Associate | | | (Records Associate)Referring MD: DANIELLE GARCÍAPRequestdonya | | | Provider: [...] | | | The Olympus [id number] Gastroscope #[id number] was | | | introduced through the [...] endoscope without resistance. The | | | ceqrl-lz-fnaecky limb was characterized by healthy appearing | [...] 3:58 [facility] Letter to: FADI GOODRICH DO [...] + + + | NKECHI AMES | [address] | [place], [place] | | | [facility] | [facility] | [address] | | | TESTS | | | [...] | | | | | | Until [facility] 06/24/18 at 0027, | | | [...] 06/23/18 at 1532, | | | Until [facility] 06/24/18 at 0027, | | | [...]
--- OUTSIDE RECORDS SUMMARY | ~2019-05-10 | XMS | Encounter Summary ---
Demographics + + + | Address | [address] | | | [place] [address] | + + + | Home Phone [...] [place], [place] | | | | | [address] | | + + + + + | Ellie Vang | ECON | Unknown | | + + + + + Care Team Providers + +------+ + | Care Shipsmith Name | Role | Phone | + +------+ + | Fadi Goodrich DO | PCP | | + +------+ + Reason for Visit + + + | Reason | Comments | + + + | Medical Records | Letter from returned case inspector. | | Review | | + + + Encounter Details +--------+ + + + + | Date | Type | Department | Care Team | Description | +--------+ + + + + | 11/08/ | Abstract | Digestive Health | Shereen Georges, | Medical Records | | 2015 | | Center at [facility] [address] | [facility] [address] | Review (Letter from | | | | [address] | [place], [place] | returned case inspector. ) | | | | Mailcode: [place] | [address] | | | | | [facility] and | [phone] | | | | | [place] [address] | | | | | | [place], [place] | | | | | | [address] | | | | | | [phone] | | | +--------+ + + + [...] [address]ann[address] | | | | | | [place], [place] | | | | | | [address] | | | | | | [phone] | | | | | | | [...] | | | | | [place], [place] | | | | | | [address] | | | | | | [phone] | | | | | | | | +--------+ + + + + | 07/08/ | Procedure | Surgery | | | | 2018 | Pass | | | | +--------+ + + + + documented as of this encounter Visit Diagnoses Not on filedocumented in this encounter"
--- OUTSIDE RECORDS SUMMARY | ~2019-05-10 | XMS | Encounter Summary ---
Demographics + + + | Address | [address] | | | [place] [address] | + + + | Home Phone [...] + | Katalina Padilla | ECON | [address] | | | | | [place], [place] | | | | | [address] | | + + + + + | Ellie Vang | ECON | Unknown | | + + + + + Care Team Providers + +------+ + | Care Buttermaker Helper Name | Role | Phone | [...] | | [address] | [place], [place] | | | | | Mailcode: [place] | [address] | | | | | for Health and | [phone] | | | | | [facility] 2 | | | | | | [place], [place] | | | | | | [address] | | | | | | [phone] | | | +--------+ + + + [...] [address]ann[address] | | | | | | [place], [place] | | | | | | [address] | | | | | | [phone] | | | | | | | [...] | | | | | [place], [place] | | | | | | [address] | | | | | | [phone] | | | | | | | | +--------+ + + + + | 07/08/ | Procedure | Surgery | | | | 2018 | Pass | | | | +--------+ + + + + documented as of this encounter Visit Diagnoses Not on filedocumented in this encounter"
--- OUTSIDE RECORDS SUMMARY | ~2019-05-10 | XMS | Encounter Summary ---
Demographics + + + | Address | [address] | | | [place] [address] | + + + | Home Phone [...] [place], [place] | | | | | [address] | | + + + + + | Ellie Vang | ECON | Unknown | | + + + + + Care Team Providers + +------+ + | Care Senior It Recruiter Name | Role | Phone | [...] | | 2 diabetes | JEAN, | [place], [place] | | | | | mellitus | [place] [address] | [address] | | | | | without | Phone: | Phone: | | | | | complication | [phone] | [phone] | | | | | (HCC) | Fax: | Fax: | | | | | Procedures | [phone] | [phone] | | | | | [place] EST [...] | 2018 | Visit | Preventive at [facility] | [address] | mellitus without | | | | [address] | Ave [place], [place] | complication, with | | | | Mailcode: CH9A | [address] | long-term current | | | | [facility] | [phone] | use of insulin (HCC) | | | | and Healing, | | (Primary Dx); | | | | Building 1 | | Morbid obesity with | | | | [place], [place] | | BMI of 70 and over, | | | | [address] | | adult (HCC) | | | | [phone] | | | +--------+---------+ + + + [...] Priority: 3 Hypoventilation associated with obesity ([facility]) 06/16/2013 Priority: 4 AMARA (obstructive sleep apnea) 04/14/2013 Priority: 4 Overview Note: Cannot tolerate CPAP Severe Morbid obesity ([facility]), BMI 88 11/12/2012 Priority: 4 Overview Note: Lifetime max: 495 lbs Phentermine started Type 2 diabetes mellitus ([facility]) 04/14/2013 Priority: 5 Iron deficiency anemia due to chronic blood loss 11/11/2015 Priority: 6 Overview Note: Ferritin 18 on 10/2015 Hypoalbuminemia (no proteinuria, need to rule out synthetic, nutrition, loss) 6 Priority: 6 Hypothyroidism 08/28/2014 Priority: 8 Morbid obesity with BMI of 70 and over, adult ([facility]) 02/02/2017 Chronic diastolic heart failure (HCC) 02/02/2017 Immobility 02/02/2017 Severe muscle deconditioning 02/02/2017 Personal history of DVT (deep vein thrombosis) 02/02/2017 History of pulmonary embolism 02/02/2017 AMARA treated with BiPAP 02/02/2017 Benign essential HTN 02/02/2017 Diabetes mellitus type 2 without retinopathy ([facility]) 02/02/2017 Hyperlipidemia 02/02/2017 Ventral hernia [...] exertion) 11/06/2015 Diabetes mellitus with insulin therapy ([facility]) 12/27/2014 Abdominal pain 02/07/2014 Migraine [...] 1 tablet by mouth once daily CALCIUM CRB&DQN-A1-BUZ10-GENIS ORAL Take 2 tablets by mouth two [...] jeart failure is manag ed by her cable systems installer and she was seen by the bariatric [...] is currently being managed well by her It Portfolio Manager with diuretics and main tenance of [...] management of her heart failure by her It Portfolio Manager 3) Check A1c, lipids 4) Await bariatric [...] | | 2018 | Visit | | [address] | | | | | | [place], [place] | | | | | | [address] | | | | | | [phone] | | | | | | | [...] [place] | | | | | | [address] | | | | | | [phone] | | | | | | | [...] + + | [facility] | [address] [facility] | [place], [place] | | | SERVICES, LIPID | [address] | [address] | | + + + + + [...] | [facility] | | considered for monitoring desktop specialist glycemic control in patients with: | LABORATORY [...] MEDICAL CENTER | [address] | [place] [address] | | | SERVICES, SPECIAL | PARK [...]
--- OUTSIDE RECORDS SUMMARY | ~2019-05-10 | XMS | Encounter Summary ---
Demographics + + + | Address | [address] | | | [place] [address] | + + + | Home Phone [...] + | Katalina Padilla | ECON | [address] | | | | | [place], [place] | | | | | [address] | | + + + + + | Ellie Vang | ECON | Unknown | | + + + + + Care Team Providers + +------+ + | Care Utilization Supervisor Name | Role | Phone | [...] Randell | | | | | | [address] | [address] | | | | | | [address], | Ave | | | | | | [address] | [place], [place] | | | | | | [place], [place] | [address] | | | | | | [address] | Phone: | | | | | | Phone: | [phone] | | | | | | [phone] | Fax: | | | | | | Fax: | [phone] | | | | | | [phone] | | +--------+--------+ + + + + Encounter Details +--------+---------+ + + + | Date | Type | Department | Care Team | Description | +--------+---------+ + + + | 08/29/ | Office | Cardiology | Randell Franks, | HTN (hypertension) | | 2013 | Visit | Preventive at [facility] | MD [address] | (Primary Dx); 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[place], [place]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 | | | | Mailcode: [facility] | [address] | ([facility]); Morbid | | | | [facility] | [phone] | obesity (HCC) | | | | and Healing, | | | | | | Building 1 | | | | | | [place], [place] | | | | | | [address] | | | | | | [phone] | | | +--------+---------+ + + + [...] by Randell Franks MD at 12:44 PM JHONATANBriana Matute - 08/29/2013 11:23 AM PSTTrudy circumference: 66.5 [...] [address] | | | | | | [place], [place] | | | | | | [address] | | | | | | [phone] | | | | | | | [...] | | | | | [place], [place] | | | | | | [address] | | | | | | [phone] | | | | | | | [...]
--- OUTSIDE RECORDS SUMMARY | ~2019-05-10 | XMS | Encounter Summary ---
Demographics + + + | Address | [address] | | | [place] [address] | + + + | Home Phone [...] + | Katalina Padilla | ECON | [address] | | | | | [place], [place] | | | | | [address] | | + + + + + | Ellie Vang | ECON | Unknown | | + + + + + Care Team Providers + +------+ + | Care Watchmaker Apprentice Name | Role | Phone | [...] [address] | | | | | [facility] [address] | [address] [place], [place] | | | | | [address] [facility] | [address] | | | | | Mailcode: Center | [phone] | | | | | for Health and | | | | | | [facility] 2 | | | | | | [place], [place] | | | | | | [address] | | | | | | [phone] | | | +--------+ + + + [...] [address] | | | | | | [place], [place] | | | | | | [address] | | | | | | [phone] | | | | | | | [...] | | | | | [place], [place] | | | | | | [address] | | | | | | [phone] | | | | | | | | +--------+ + + + + | 07/08/ | Procedure | Surgery | | | | 2018 | Pass | | | | +--------+ + + + + documented as of this encounter Visit Diagnoses Not on filedocumented in this encounter"
--- OUTSIDE RECORDS SUMMARY | ~2019-05-10 | XMS | Encounter Summary ---
Demographics + + + | Address | [address] | | | [place] [address] | + + + | Home Phone [...] [place], [place] | | | | | [address] | | + + + + + | Ellie Vang | ECON | Unknown | | + + + + + Care Team Providers + +------+ + | Care Fire Sprinkler Service Technician Name | Role | Phone [...] + + | 02/07/ | Hospital | [address] | [place], | | | 2014 - | Encounter | [address] | [address] | | | | | [place], [place] | [address] | | | 02/08/ | | [address] | [place], [place] | | | 2013 | | [phone] | [address] | | | | | | [phone] | | | | | | | [...] resident s note. PRADIP STARR MD [facility] [address] [place] [address] orrMaryam hill MD - 1:05 PM PDT [facility] DEPARTMENT OF SURGERY EMERGENCY GENERAL SURGERY [...] Type 2 DM who presented to the [facility] ED ([place], [place]) on 02/06/14, with a week hi story of RUQ abdominal pain that radiates to her back. There, she was found to have leukocyt osis and multiple tiny, mobile stones, + sonographic Peterson's sign on abdominal ultrasound, concerning for acute cholecystitis. She was givenIV antibiotics (cipro, flagyl) and pain med s, then transferred to [facility] by [facility] for further care. Ms. Romero endorsed 7/10 [...] General Surgery at [facility] In 4 weeks. (follow up in 2-4 weeks ) Contact information [address] [facility] Mailcode: L223a Lionelyiarmen [address] [place] [address] Thank you for the [...] resident s note. PRADIP STARR MD [facility] [address] [place] [address] orrMaryam hill MD - 5:17 AM PDT [facility] DEPARTMENT OF SURGERY EMERGENCY GENERAL SURGERY Division [...] tolerated MARYAM RHODES MD PGY-1, General Surgery 35040 pager number [facility] [place] [facility] [address] [place] [facility] [place] [address] documented in this encoun ter Plan of Treatment +--------+ + + + + | Date | Type | Specialty | Care Team | Description | +--------+ + + + + | 05/13/ | Office | Plastic Surgery | Archie Ybarra MD | | | 2018 | Visit | | [address] | | | | | | [place] | | | | | | [address] | | | | | | [phone] | | | | | | | [...] | | | | | [place], [place] | | | | | | [address] | | | | | | [phone] | | | | | | | [...] - [facility] | [address] | [place], [place] | | | JUSTINE DAWN OF CARE | [address] | [address] | | | TESTS | | | [...] + + + | N[facility] AMES | [address] | [place], [place] | | | [facility] | [address] | [address] | | | TESTS | | | [...] [facility] | [address] | [place], [place] | | | JUSTINE DAWN OF JAKY | [address] | [address] | | | TESTS | | | [...] - [facility] | [address] | [place], [place] | | | [place] [facility] CARE | [address] | [address] | | | TESTS | | | [...] [facility] | [address] | [place] [address] | | | SERVICES, | [address] [...] [facility] | [address] | [place] [address] | | | SERVICES, | [address] [...] - [facility] | [address] | [place], [place] | | | [facility] POINT OF CARE | [address] | [address] | | | TESTS | | | [...] | + + + + + | [facility] | [address] | [place] [address] | | | SERVICES, CORE | [address] [...] | [facility] | [address] | [place] [address] | | | SERVICES, CORE | [address] [...] | [facility] | [address] [facility] | [place] [address] | | | CLAIRE, LYDIA | [address] [...] [facility] | [address] | [place] [address] | | | SERVICES, CORE | PARK [...] | | | LABORATORY | | | [place] | | | SERVICES, | | | [...] | [facility] | [address] | [place] [address] | | | [address] | [address] [...] - [place] | [address] | [place], [place] | | | [facility] [facility] | [facility] | [address] | | | TESTS | | | [...] ResidentPeter | | | | | | Stenzel, M.D., | | | | | | Ph.D./PathologistT:02/09 [...] pattern. | | | | | | Screening Technician | | | | | | [...] + + + + + | [facility] | [address] | [place] [address] | | | PATHOLOGY | [address] [...] | mL/hr | | | CONTINUOUS, Starting Tu02/07/14 | | AM PDT | | | [...]
--- OUTSIDE RECORDS SUMMARY | ~2019-05-10 | XMS | Encounter Summary ---
Demographics + + + | Address | [address] | | | [place] [address] | + + + | Home Phone [...] + | Katalina Padilla | ECON | [address] | | | | | [place], [place] | | | | | [address] | | + + + + + | Ellie Vang | ECON | Unknown | | + + + + + Care Team Providers + +------+ + | Care Engraver Hand Hard Metals Name | Role | Phone | + [...] Preventive at [facility] | [address] | stop any | | | | [address] | Ave [place], [place] | medications? ) | | | | Mailcode: Mihaela | [address] | | | | | [facility] | [phone] | | | | | and Healing, | | | | | | [address] | | | | | | [place], [place] | | | | | | [address] | | | | | | [phone] | | | +--------+ + + + [...] | | | | | | [place], [place] | | | | | | [address] | | | | | | [phone] | | | | | | | | +--------+ + + + + | 06/27/ | Telephone-S | Pre-operative | | | | 2018 | cheduled | Medicine | | | +--------+ + + + + | 06/30/ | Office | Cardiology | Randell Franks, | | | 2018 | Visit | | [address] | | | | | | [place], [place] | | | | | | [address] | | | | | | [phone] | | | | | | | | +--------+ + + + + | 07/08/ | Procedure | Surgery | | | | 2019 | Pass | | | | +--------+ + + + + documented as of this encounter Visit Diagnoses Not on filedocumented in this encounter"
--- OUTSIDE RECORDS SUMMARY | ~2019-05-10 | XMS | Encounter Summary ---
[...] [place], [place] | | | | | [address] | | + + + + + | Ellie Vang | ECON | Unknown | | + + + + + Care Team Providers + +------+ + | Care Director Voice Name | Role | Phone | + +------+ + | Kenyatta Cardenas MD | PCP | | + +------+ + Encounter Details +--------+ + + + + | Date | Type | Department | Care Team | Description | +--------+ + + + + | 03/01/ | Procedure | Diagnostic Imaging | | | | 2019 | Pass | Services at [facility] | | | | | | [address] | | | | | | Lesly Gutiérrez Mailcode: | | | | | | [address] [facility] | | | | | | [place], [place] | | | | | | [address] | | | | | | [phone] | | | +--------+ + + + [...] | | 2019 | Visit | | [address] | | | | | | [place], [place] | | | | | | [address] | | | | | | [phone] | | | | | | | [...] [place] | | | | | | [address] | | | | | | [phone] | | | | | | | | +--------+ + + + + | 07/08/ | Procedure | Surgery | | | | 2018 | Pass | | | | +--------+ + + + + documented as of this encounter Visit Diagnoses Not on filedocumented in this encounter"
--- OUTSIDE RECORDS SUMMARY | ~2019-05-10 | XMS | Encounter Summary ---
Demographics + + + | Address | [address] | | | [place] [address] | + + + | Home Phone [...] [place], [place] | | | | | [address] | | + + + + + | Ellie Vang | ECON | Unknown | | + + + + + Care Team Providers + +------+ + | Care Cyber Defense Incident Responder Name | Role | Phone | + [...] | | Alma Delia Mailcode: CH4S | [facility] | | | | | [facility] | [place], [place] | | | | | and Healing, | [address] | | | | | [place] [address] [facility] | [phone] | | | | | Floor [place], [place] | | | | | | [address] | | | | | | [phone] | | | +--------+ + + + [...] [place] | | | | | | [address] | | | | | | [phone] | | | | | | | [...] | | | | | [place], [place] | | | | | | [address] | | | | | | [phone] | | | | | | | | +--------+ + + + + | 07/08/ | Procedure | Surgery | | | | 2019 | Pass | | | | +--------+ + + + + documented as of this encounter Visit Diagnoses Not on filedocumented in this encounter"
--- OUTSIDE RECORDS SUMMARY | ~2019-05-10 | XMS | Encounter Summary ---
Demographics + + + | Address | [address] | | | [place] [address] | + + + | Home Phone [...] [place], [place] | | | | | [address] | | + + + + + | Ellie Vang | ECON | Unknown | | + + + + + Care Team Providers + +------+ + | Care Sales Agent Casualty Insurance Name | Role | Phone | + [...] | [facility] | | | with REAL ESTATE TRANSACTION COORDINATOR | | hypertension | [address] | | | | | Right | [address] | [address] | | | | | heart | [place], [place] | Mailcode: | | | | | failure | [address] | Center for | | | | | ([facility]) Type | Phone: | Health and | | | | | 2 diabetes | [phone] | Healing, | | | | | mellitus | Fax: | Building 2 | | | | | without | [phone] | [place], [place] | | | | | complication | | [address] | | | | | , with | | Phone: | | | | | long-term | | | | | | | current use | | Fax: | | | | | of insulin | | [phone] | | | | | ([facility] [...] | | 2 diabetes | JEAN, | [place], [place] | | | | | mellitus | [place] [address] | [address] | | | | | without | Phone: | Phone: | | | | | complication | [phone] | [phone] | | | | | (HCC) | Fax: | Fax: | | | | | Procedures | [phone] | [phone] | | | | | [place] EST | | | | | | [...] [facility] | [address] | hypertension | | | | [address] | Ave [place], [place] | (Primary Dx); Right | | | | Mailcode: [facility] | [address] | heart failure (HCC); | | | | [facility] | [phone] | Type 2 diabetes | | | | and Healing, | | mellitus without | | | | [address] | | complication, with | | | | [place], [place] | | long-term current | | | | [address] | | use of insulin (HCC) | | | | [phone] | | | +--------+---------+ + + + [...] 81 mg by mouth once daily. CALCIUM CRB&EFO-H4-TYI98-GENIS ORAL Take 2 tablets by mouth two [...] then she has worked closely with her [facility] doctor and has been been able [...] 12 CREATININE PLASMA (LAB) 0.79 EGFR - DUTCH >60 EGFR NON -DUTCH >60 GLUCOSE, PLASMA (LAB) 170 (H) CALCIUM, [...] [place] | | | | | | [address] | | | | | | [phone] | | | | | | | [...] | | | | | [place], [place] | | | | | | [address] | | | | | | [phone] | | | | | | | [...] [facility] | [address] | [place] [address] | | | SERVICES, CORE | PARK [...] + + + | [facility] | [address] | [place], [place] | | | SERVICES, LIPID | [address] | [address] | | + + + + + [...] glycated albumin should be considered for monitoring group home | LABORATORY | | glycemic control [...] | [facility] | [address] | [place] [address] | | | SERVICES, SPECIAL | CLARENCE [...] | | | LABORATORY | | | DUTCH | | | SERVICES, | | | [...] the MDRD equation recommended by the | [facility] | | National Kidney Disease [...] [facility] | [address] | [place] [address] | | | LYDIA RANGEL | CLARENCE [...]
--- OUTSIDE RECORDS SUMMARY | ~2019-05-10 | XMS | Encounter Summary ---
Demographics + + + | Address | [address] | | | [place] [address] | + + + | Home Phone [...] [place], [place] | | | | | [address] | | + + + + + | Ellie Vang | ECON | Unknown | | + + + + + Care Team Providers + +------+ + | Care Bar Tender Name | Role | Phone | [...] [facility] | [address] | (phentermine 37.5 mg | | | | [address] | [facility] [place] | ) | | | | Mailcode: LATRELL | [address] | | | | | [facility] | [phone] | | | | | and Erick, | | | | | | [address] | | | | | | [place], [place] | | | | | | [address] | | | | | | [phone] | | | +--------+--------+ + + + [...] [address]ann[address] | | | | | | [place], [place] | | | | | | [address] | | | | | | [phone] | | | | | | | [...] | | | | | [place], [place] | | | | | | [address] | | | | | | [phone] | | | | | | | | +--------+ + + + + | 07/08/ | Procedure | Surgery | | | | 2019 | Pass | | | | +--------+ + + + + documented as of this encounter Visit Diagnoses Not on filedocumented in this encounter"
--- OUTSIDE RECORDS SUMMARY | ~2019-05-10 | XMS | Encounter Summary ---
Demographics + + + | Address | [address] | | | [place] [address] | + + + | Home Phone [...] [place], [place] | | | | | [address] | | + + + + + | Ellie Vang | ECON | Unknown | | + + + + + Care Team Providers + +------+ + | Care Station Attendant Name | Role | Phone | [...] at [facility] [address] | [facility] [address] | Review (Pre-surgery | | | | [address] | Ave [place], [place] | meal plan. To be | | | | Mailcode: Center | [address] | provided to home | | | | for Health and | | health nurse. ) | | | | [facility], [address] | | | | | | [place], [place] | | | | | | [address] | | | | | | | [...] [address]ann[address] | | | | | | [place] | | | | | | [address] | | | | | | [phone] | | | | | | | [...] | | | | | [place], [place] | | | | | | [address] | | | | | | [phone] | | | | | | | | +--------+ + + + + | 07/08/ | Procedure | Surgery | | | | 2019 | Pass | | | | +--------+ + + + + documented as of this encounter Visit Diagnoses Not on filedocumented in this encounter"
--- OUTSIDE RECORDS SUMMARY | ~2019-05-10 | XMS | Encounter Summary ---
Demographics + + + | Address | [address] | | | [place] [address] | + + + | Home Phone [...] [place], [place] | | | | | [address] | | + + + + + | Ellie Vang | ECON | Unknown | | + + + + + Care Team Providers + +------+ + | Care Full Stack Engineer Name | Role | Phone | + +------+ + | Fadi Goodrich DO | PCP | | + +------+ + Encounter Details +--------+------+ + + + | Date | Type | Department | Care Team | Description | +--------+------+ + + + | 11/28/ | Lab | Laboratory at [facility] | | Essential | | 2017 | | [address] | | hypertension; Right | | | | [place], [place] | | heart failure (HCC); | | | | [address] | | Type 2 diabetes | | | | [phone] | | mellitus without | | | [...] 05/13/ | Office | Plastic Surgery | rAchie Ybarra MD | | | 2018 | Visit | | [address] | | | | | | [place], [place] | | | | | | [address] | | | | | | [phone] | | | | | | | [...] | | | | | [place], [place] | | | | | | [address] | | | | | | [phone] | | | | | | | [...] heart failure ([facility]) | results section. | | | | [...] (NA,K,CL,CO2,BUN,CRE | | PDT | heart failure ([facility]) | results section. | | AT,GLUC,CA,AST,ALT,B | | | Type 2 diabetes | | | MARGIE TOTAL,ALK | | | mellitus without | | | PHOS,ALB,PROT TOTAL) | | | complication, with | | | | | | long-term current | | | | | | use of insulin ([facility]) | | + +--------+ + + + | TSH | Routin | 11/28/2016 | Essential | Results for this | | | e | 10:53 AM | hypertension Right | procedure are in the | | | | PDT | heart failure ([facility]) | results section. | | | | [...] heart failure ([facility]) | results section. | | | | | Type 2 diabetes | | | | | | mellitus without | | | | | | complication, with | | | | | | long-term current | | | | | | use of insulin ([facility]) | | + +--------+ + + [...] [facility] | [address] | [place] [address] | | | SERVICES, CORE | PARK [...] + | [facility] | [address] | [place], [place] | | | SERVICES, LIPID | [address] | [address] | | + + + + + [...] + | [facility] [employer] | [address] | [place] [address] | | | SERVICES, SPECIAL | CLARENCE [...] | | | LABORATORY | | | EMIRATI | | | SERVICES, | | | [facility] | [address] [facility] | [place] [address] | | | LYDIA RANGEL | CLARENCE [...]
--- OUTSIDE RECORDS SUMMARY | ~2019-05-10 | XMS | Encounter Summary ---
Demographics + + + | Address | [address] | | | [place] [address] | + + + | Home Phone [...] [place], [place] | | | | | [address] | | + + + + + | Ellie Vang | ECON | Unknown | | + + + + + Care Team Providers + +------+ + | Care Catechist Name | Role | Phone | + [...] 2019 | | Center at [facility] [address] | | Review | | | | [address] | | | | | | Mailcode: [place] | | | | | | [facility] and | | | | | | [facility], [facility] 2 | | | | | | [place], [place] | | | | | | [address] | | | | | | [phone] | | | +--------+ + + + [...] [place] | | | | | | [address] | | | | | | [phone] | | | | | | | [...] | | | | | [place], [place] | | | | | | [address] | | | | | | [phone] | | | | | | | | +--------+ + + + + | 07/08/ | Procedure | Surgery | | | | 2019 | Pass | | | | +--------+ + + + + documented as of this encounter Visit Diagnoses Not on filedocumented in this encounter"
--- OUTSIDE RECORDS SUMMARY | ~2019-05-10 | XMS | Encounter Summary ---
Demographics + + + | Address | [address] | | | [place] [address] | + + + | Home Phone [...] Team Providers + +------+ + | Care Forging Die Sinker Name | Role | Phone | + +------+ + | Fadi Goodrich DO | PCP | | + +------+ + Encounter Details +--------+ + + + + | Date | Type | Department | Care Team | Description | +--------+ + + + + | 08/22/ | Abstract | Cardiology | Randell Franks, | | | 2013 | | Preventive at [facility] | MD [address] | | | | | [address] | Ave [place], [place] | | | | | Mailcode: CH9A | [address] | | | | | [facility] | [phone] | | | | | and Healing, | | | | | | [address] | | | | | | [place], [place] | | | | | | [address] | | | | | | [phone] | | | +--------+ + + + [...] [address]ann[address] | | | | | | [place], [place] | | | | | | [address] | | | | | | [phone] | | | | | | | [...] | | | | | [place], [place] | | | | | | [address] | | | | | | [phone] | | | | | | | | +--------+ + + + + | 07/08/ | Procedure | Surgery | | | | 2019 | Pass | | | | +--------+ + + + + documented as of this encounter Visit Diagnoses Not on filedocumented in this encounter"
--- OUTSIDE RECORDS SUMMARY | ~2019-05-10 | XMS | Encounter Summary ---
Demographics + + + | Address | [address] | | | [place] [address] | + + + | Home Phone [...] Providers + +------+ + | Care Sales Analytics Manager Name | Role | Phone | + +------+ + | Fadi Goodrich DO | PCP | | + +------+ + Encounter Details +--------+ + + + + | Date | Type | Department | Care Team | Description | +--------+ + + + + | 02/13/ | Telephone | Cardiology | Randell Franks, | | | 2016 | | Preventive at [facility] | MD [address] | | | | | [address] | Ave [place], [place] | | | | | Mailcode: [facility] | [address] | | | | | [facility] | [phone] | | | | | and Healing, | | | | | | Building [address] | | | | | | [facility] [place] | | | | | | [address] | | | | | | [phone] | | | +--------+ + + + [...] Flann[address] | | | | | | [place], [place] | | | | | | [address] | | | | | | [phone] | | | | | | | [...] | | | | | [place], [place] | | | | | | [address] | | | | | | [phone] | | | | | | | | +--------+ + + + + | 07/08/ | Procedure | Surgery | | | | 2019 | Pass | | | | +--------+ + + + + documented as of this encounter Visit Diagnoses Not on filedocumented in this encounter"
--- OUTSIDE RECORDS SUMMARY | ~2019-05-10 | XMS | Encounter Summary ---
Demographics + + + | Address | [address] | | | [place] [address] | + + + | Home Phone [...] [place], [place] | | | | | [address] | | + + + + + | Ellie Vang | ECON | Unknown | | + + + + + Care Team Providers + +------+ + | Care Freelance Court Reporter Name | Role | Phone | + [...] | | | | | Ventral | [address] | [facility] | | | | | hernia | Phone: | [place] | | | | | without | [phone] | [address] | | | | | obstruction | Fax: | [place], | | | | | or gangrene | [phone] | [place] [address] | | | | | Mixed | | Phone: | | | | | hyperlipidem | | [phone] | | | | | ia Diabetes | | Fax: | | | | | mellitus | | [phone] | | | | | type 2 [...] | | | | | | | [place] UPPER GI | | | | | | | ENDOSCOPY,BI | | | | | | | OPS[place] | | | | | | [...] | | | | Mailcode: Center | [address] | Ventral hernia | | | | for Health and | [phone] | without obstruction | | | | Healing, [address] | | or gangrene; Mixed | | | | [place], [place] | | hyperlipidemia; | | | | [address] | | 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[phone] | | type 2 without | | [...] to POC and will call or send Square message if any issues. documented in this [...] tongue once daily., Disp: , Rfl: CALCIUM CRB&DXC-U0-MBM87-GENIS ORAL, Take 2 tablets by mouth two [...] History Narrative Updated 11/09/15 She lives in [place] with her mother and her sister (also her caregiver) lives in an apa rtment/duplex below. She has 2 grandchildren (age 4 and 7) who live with her daughter and son-in-law Her boyfriend lives in [place] HFpEF, DM2, HTN, Sleep Apnea (unable to [...] program here and refer her to our solar energy specialist who also has expertise in physical [...] and documenting after this visit. Ronna SANTOSP HOTSHOT SUPERINTENDENT Bariatric Surgery Nurse Practitioner [facility] | [address] | [place], [place] | [address] | documented in this e ncounter Plan of Treatment +--------+ + + + + | Date | Type | Specialty | Care Team | Description | +--------+ + + + + | 05/13/ | Office | Plastic Surgery | Archie Ybarra MD | | | 2018 | Visit | | [address] | | | | | | [place], [place] | | | | | | [address] | | | | | | [phone] | | | | | | | [...] | | | | | [place], [place] | | | | | | [address] | | | | | | [phone] | | | | | | | [...] + + + | EXAM: Esophagram with front desk lead radiograph HISTORY: RYGB 03/01/2018, | [facility] | | vomiting/pain ever since COMPARISON: 04/27/2018 CT TECHNIQUE: | RADIOLOGY VOICE | | Produce Manager radiograph was performed. Single contrast exam of the esophagus, | RECOGNITION 2 | | gastric pouch, and gastrojejunostomy in upright positioning. | | | Radiation dose reduction technique was maximized where appropriate | | | using pulsed fluoroscopy and fluoro-store images. Fluoro Time 57 | | | second(s) FINDINGS: Produce Manager shows stone in the upper pole of [...] AM PST EXAM: Esophagram | | with front desk lead radiograph HISTORY: RYGB 03/01/2018, vomiting/pain ever since COMPARISON: | | 04/27/2018 CT TECHNIQUE: Produce Manager radiograph was performed. Single contrast exam of the | | esophagus, gastric pouch, and gastrojejunostomy in upright positioning. Radiation dose | | reduction technique was maximized where appropriate using pulsed fluoroscopy and | | fluoro-store images. Fluoro Time 57 second(s) FINDINGS:Produce Manager shows stone in the upper | | [...] + + + | [facility] [employer] | [address] | [place] [address] | | | SERVICES, CORE | CLARENCE [...] | [facility] | | considered for monitoring half-way glycemic control in patients with: | LABORATORY [...] | + + + + + | [facility] | [address] | [place] [address] | | | SERVICES, SPECIAL | PARK [...] B: | | | | | | [employer]/CSPerformed | | | | | | by built.io,500 | | | | | | Liliana Martinez, [facility] | | | | | | [address] | | | | | | [phone].[employer]. | | | | | | comIsmael [...] [facility] | [address] | [place], [place] | | | [facility] | | [address] | | + + + + + [...] [facility] | [address] | [place] [address] | | | LYDIA RANGEL | CLARENCE [...] | + + + + + | [facility] | [address] | [place] [address] | | | SERVICES, CORE | CLARENCE [...] + + | [facility] | [address] | [place] [address] | | | SERVICES, CORE | PARK [...] | + + + + + | [facility] | [address] | [place] [address] | | | SERVICES, CORE | CLARENCE [...] | + + + + + | [facility] | [address] | [place] [address] | | | SERVICES, CORE | CLARENCE [...] | + + + + + | [facility] | [address] | [place] [address] | | | SERVICES, CORE | CLARENCE [...]
--- OUTSIDE RECORDS SUMMARY | ~2019-05-10 | XMS | Encounter Summary ---
Demographics + + + | Address | [address] | | | [place] [address] | + + + | Home Phone [...] [place], [place] | | | | | [address] | | + + + + + | Ellie Vang | ECON | Unknown | | + + + + + Care Team Providers + +------+ + | Care Measuring Machine Tender Name | Role | Phone | + +------+ + | Fadi Goodrich DO | PCP | | + +------+ + Encounter Details +--------+------+ + + + | Date | Type | Department | Care Team | Description | +--------+------+ + + + | 06/16/ | Lab | Laboratory at [facility] | | Morbid obesity with | | 2012 | | [address] | | BMI of 70 and over, | | | | [place], [place] | | adult (HCC); Vitamin | | | | [address] | | D deficiency | | | | [phone] | | disease; | | | | [...] [address]ann[address] | | | | | | [place], [place] | | | | | | [address] | | | | | | [phone] | | | | | | | [...] | | | | | Alma Del[place] | | | | | | [address] | | | | | | [phone] | | | | | | | [...] B: | | | | | | [employer]/CSPerformed | | | | | | by [employer] [facility],500 | | | | | | Liliana Martinez, [facility],[place] | | | | | | [address] | | | | | | [phone].aruplab. | | | | | | com, [...] at | | | | | | [employer] | | | | | | developed and | | | | | | characteristics | | | | | | determined by | | | | | | [employer]. See | | | | | | Compliance Statement B: | | | | | | [employer]/CS | | | | + + + [...] | [facility] | | [id number] | | + + + + + [...]
--- OUTSIDE RECORDS SUMMARY | ~2019-05-10 | XMS | Encounter Summary ---
Demographics + + + | Address | [address] | | | [place] [address] | + + + | Home Phone [...] + | Katalina Padilla | ECON | [address] | | | | | [place], [place] | | | | | [address] | | + + + + + | Ellie Vang | ECON | Unknown | | + + + + + Care Team Providers + +------+ + | Care Drapery Hanger Name | Role | Phone | + +------+ + | Fadi Goodrich DO | PCP | | + +------+ + Encounter Details +--------+ + + + + | Date | Type | Department | Care Team | Description | +--------+ + + + + | 08/16/ | Abstract | Digestive Health | Kathy Feldman, | | | 2013 | | Center at [facility] [address] | DEPARTMENT MGR [address] | | | | | [address] | [facility] [address] | | | | | Mailcode: Center | [place], [place] | | | | | [facility] Health and | [address] | | | | | [facility] 2 | [phone] | | | | | [place], [place] | | | | | | [address] | | | | | | [phone] | | | +--------+ + + + [...] [address]ann[address] | | | | | | [place], [place] | | | | | | [address] | | | | | | [phone] | | | | | | | [...] | | | | | [place], [place] | | | | | | [address] | | | | | | [phone] | | | | | | | | +--------+ + + + + | 07/08/ | Procedure | Surgery | | | | 2019 | Pass | | | | +--------+ + + + + documented as of this encounter Visit Diagnoses Not on filedocumented in this encounter"
--- OUTSIDE RECORDS SUMMARY | ~2019-05-10 | XMS | Encounter Summary ---
Demographics + + + | Address | [address] | | | [place] [address] | + + + | Home Phone [...] [place], [place] | | | | | [address] | | + + + + + | Ellie Vang | ECON | Unknown | | + + + + + Care Team Providers + +------+ + | Care Cna Hospice Name | Role | Phone | + +------+ + | Fadi Goodrich DO | PCP | | + +------+ + Encounter Details +--------+ + + + + | Date | Type | Department | Care Team | Description | +--------+ + + + + | 07/06/ | Abstract | Digestive Health | Clinic, Surgery | | | 2016 | | [place] at [facility] [address] | | | | | | [address] | | | | | | Mailcode: [place] | | | | | | [facility] and | | | | | | [facility] 2 | | | | | | [place], [place] | | | | | | [address] | | | | | | [phone] | | | +--------+ + + + [...] [address] | | | | | | [place], [place] | | | | | | [address] | | | | | | [phone] | | | | | | | | +--------+ + + + + | 06/27/ | Telephone-S | Pre-operative | | | | 2019 | cheduled | Medicine | | | +--------+ + + + + | 06/30/ | Office | Cardiology | Randell Franks, | | | 2018 | Visit | | [address] | | | | | | [place], [place] | | | | | | [address] | | | | | | [phone] | | | | | | | | +--------+ + + + + | 07/08/ | Procedure | Surgery | | | | 2018 | Pass | | | | +--------+ + + + + documented as of this encounter Visit Diagnoses Not on filedocumented in this encounter"
--- OUTSIDE RECORDS SUMMARY | ~2019-05-10 | XMS | Encounter Summary ---
Demographics + + + | Address | [address] | | | [place] [address] | + + + | Home Phone [...] [place], [place] | | | | | [address] | | + + + + + | Ellie Vang | ECON | Unknown | | + + + + + Care Team Providers + +------+ + | Care Chief Internal Auditor Name | Role | Phone | [...] | Tiny, | | | | | CT EST | Fadi Person DO | MD Randell | | | | | PATIENT | [address] | [address] | | | | | [address] | [address] | Ave | | | | | | [place], | [place], [place] | | | | | | [place] [address] | [address] | | | | | | Phone: | Phone: | | | | | | [phone] | [phone] | | | | | | Fax: | Fax: | | | | | | [phone] | [phone] | +--------+--------+ + + + + Encounter Details +--------+---------+ + + + | Date | Type | Department | Care Team | Description | +--------+---------+ + + + | 04/03/ | Office | Cardiology | Randell Franks, | Morbid obesity (HCC) | | 2015 | Visit | Preventive at [facility] | [address] | (Primary Dx); Type | | | | [address] | Ave [place], [place] | 2 diabetes mellitus | | | | Mailcode: CH9A | [address] | without complication | | | | [facility] | [phone] | ([facility]) | | | | and [place], | | | | | | Building [address] | | | | | | [place], [place] | | | | | | [address] | | | | | | [phone] | | | +--------+---------+ + + + [...] 500 mg by mouth once daily. CALCIUM CRB&TCR-T4-PHQ81-GENIS ORAL Take 1 tablet by mouth two [...] if we use her last [facility] weight of 410 lbs, this would put her at 360 lbs before consideration for RYGBP. She is working with the bariatric surgery high school music director to try to achieve this. She [...] visit Diet: healthy, working with [employer] high school music director Exercise: "I walk everywhere." ROS: No [...] 2018 | Visit | | [address] | | | | | | [place], [place] | | | | | | [address] | | | | | | [phone] | | | | | | | [...] | | | | | [place], [place] | | | | | | [address] | | | | | | [phone] | | | | | | | [...]
--- OUTSIDE RECORDS SUMMARY | ~2019-05-10 | XMS | Encounter Summary ---
Demographics + + + | Address | [address] | | | [place] [address] | + + + | Home Phone [...] [place], [place] | | | | | [address] | | + + + + + | Ellie Vang | ECON | Unknown | | + + + + + Care Team Providers + +------+ + | Care Pharmaceutical Officer Name | Role | Phone | [...] Ave | | | | Order | [facility] | [place], [place] | | | | | [address] | [address] | | | | | Mailcode: OC2L | [phone] | | | | | [facility] | | | | | | and Healing, | | | | | | Building [address] | | | | | | [facility] [place] | | | | | | [address] | | | | | | [phone] | | | +--------+ + + + [...] 2019 | Visit | | [address] | | | | | | [place], [place] | | | | | | [address] | | | | | | [phone] | | | | | | | [...] | | | | | [place] [place], [place] | | | | | | [address] | | | | | | [phone] | | | | | | | [...]
--- OUTSIDE RECORDS SUMMARY | ~2019-05-10 | XMS | Encounter Summary ---
Demographics + + + | Address | [address] | | | [place] [address] | + + + | Home Phone [...] [place], [place] | | | | | [address] | | + + + + + | Ellie Vang | ECON | Unknown | | + + + + + Care Team Providers + +------+ + | Care Manager Respiratory Care Name | Role | Phone | [...] + + | 01/01/ | Emergency | [facility] Emergency | Fide Hester | | | 2017 - | | Department [address] | MD Raza [address] | | | | | [address] | [address] | | | 01/02/ | | [facility] | [place], [place] | | | 2017 | | [place], [place] | [address] | | | | | [address] | [phone] | | | | | [phone] | | | | | | | Jaime Yee, | | | | | | ANP [address] | | | | | | [facility] [address] | | | | | | [place], [place] | | | | | | [address] | | | | | | [phone] | | | | | | | | | | | | Sheree Aguiar MD | | | | | | [address] | | | | | | [place], [place] | | | | | | [address] | | | | | | | | | | | | Felix Cardoza, | | | | | | ESTATE AGENT [address] | | | | | | [facility] | | | | | | [place], [place] | | | | | | [address] | | | | | | [phone] | | | | | | | [...] ready for discharge. Thank you for choosing [facility] for your healthcare needs. Abdominal [...] living will and a durable power of title attorney for health care. Bring a copy [...] apply lotions, perfume s, deodorants, or nail jamaican. Do not shave the surgical site yourself. [...] driving, and getting back to your [facility] routine. When should you call [...] Repair: Before Your Surgery", log into your [employer] a ccount at [email or web address]. You can enter U288 in the "eSee/[employer] Library" search box . Not on [employer]? Review the TransNett section of your After Visit Summary for directions on anjel aguero to sign up. Current as of: March 04, 2016 Content Version: 11.2 8876-7917 [employer]. Care instructions adapted under license by [facility]. If you have questions about a medical condition or this instr uction, always ask your healthcare professional. [employer] disclaims any curly anty or liability for [...] changes in the way you eat. An service center specialist to help you be more active [...] Prepare for Weight-Loss Surgery", log into your [employer] account at [email or web address]. You can enter C413 in the "eSee/[employer] Library" s earch box. Not on [employer]? Review the [employer] section of your After Visit Summary for directions on anjel aguero to sign up. Current as of: May 08, 2016 Content Version: 11.2 7188-6731 [employer]. Care instructions adapted under license by [facility]. If you have questions about a medical condition or this instr uction, always ask your healthcare professional. [employer] disclaims any curly anty or liability for [...] | | 0 | | | | CRB&KTT-V5-HML15-GEN | mouth two times | | | [...] - 01/02/2017 7:49 AM PDT [facility] DEPARTMENT OF SURGERY EMERGENCY GENERAL SURGERY [...] wall hernias, laci hobbs was flown from [place] with abdominal pain from a recurrent, reducible [...] uss with Dr. Moore. Mary Ball MD [id number] [facility] A [address] [facility] [place] [address] documented in this en counter Plan of Treatment +--------+ + + + + | Date | Type | Specialty | Care Team | Description | +--------+ + + + + | 05/13/ | Office | Plastic Surgery | Archie Ybarra MD | | | 2018 | Visit | | [address] | | | | | | [place] | | | | | | [address] | | | | | | [phone] | | | | | | | [...] [place] | | | | | | [address] | | | | | | [phone] | | | | | | | [...] AMES | [address] | [place], [place] | | | L[place]PE[place] POINT OF CARE | [address] | [address] | | | TESTS | | | [...] | | | LABORATORY | | | CHINESE | | | SERVICES, | | | [...] | + + + + + | [facility] LABORATORY | [address] | [place] [address] | | | SERVICES, CORE | CLARENCE [...] (H) | 60 - 99 mg/dL | [facility] - | | | [...] AMES | [address] | [place], [place] | | | JUSTINE DAWN OF CARE | [address] | [address] | | | TESTS | | | [...] [facility] | [address] | [place] [address] | | | SERVICES, CORE | PARK [...] + | [facility] | [address] [facility] | [place] [address] | | | SERVICES, CORE | PARK [...] + | [facility] | [address] | [place] [address] | | | [place] | | | [...] | + + + + + | [facility] | [address] | [place] [address] | | | SERVICES, CORE | CLARENCE [...] [facility] | [address] | [place], [place] | | | JUSTINE DAWN OF CARE | [facility] | [address] | | | TESTS | | | [...] [facility] | [address] | [place] [address] | | | SERVICES, | [address] [...] | + + + + + | [facility] | [address] | [place] [address] | | | SERVICES, | [address] [...] [facility] | [address] | [place] [address] | | | SERVICESLYDIA | [address] [...] + + | [facility] | [address] [facility] | [place] [address] | | | SERVICES, CORE | CLARENCE [...] | | | LABORATORY | | | CHINESE | | | SERVICES, | | | [...] [facility] | [address] | [place] [address] | | | SERVICES, CORE | [address] | | | + + + + + ED INFORMATION EXCHANGE (01/01/2017 8:22 AM PDT) + + + + + + | Component | Value | Ref Range | Performed | Pathologist | | | | | At | Signature | + + + + + + | [facility] | [id number] | | [facility] | | | | [id number] | | MEDICAL | | | | [...] ----- ---- | | | RADHA GOODRICH [facility] | | | [facility] Unknown Primary Care | | | Unknown - Current Radha Goodrich DO | | | [phone] Primary Care | | | Unknown - Current | | + + + + + + + + | Performing | Address | City/State/Zipcode | Phone Number | | Organization | | | | + + + + + | [facility] | [address], | [place], [place] | [phone] | | TECHN[employer] | [address] | [address] | | + + + + + [...] | | | HOURS, First dose on [facility] 01/01/17 | | AM PDT | | [...] | | | | Last dose on 01/04/17 at 0700 | | | | [...] | | | | | | | [facility] 01/01/17 at 2200, Until | [...] | | | | First dose on [facility] 01/01/17 at 1945, | | [...] | | | | ONCE, 1 dose, [facility] 01/01/17 at 0945 | | [...]
--- OUTSIDE RECORDS SUMMARY | ~2019-05-10 | XMS | Encounter Summary ---
Demographics + + + | Address | [address] | | | [place] [address] | + + + | Home Phone [...] [place], [place] | | | | | [address] | | + + + + + | Ellie Vang | ECON | Unknown | | + + + + + Care Team Providers + +------+ + | Care Highway Worker Name | Role | Phone | [...] | | | | | bypass | [place], | Mailcode: | | | | | Nausea and | [place] | [address] [facility] | | | | | vomiting, | [address] | Hospital | | | | | intractabili | Phone: | [place], [place] | | | | | ty of | | [address] | | | | | vomiting not | Fax: | Phone: | | | | | specified, | [phone] | [phone] | | | | | unspecified | | Fax: | | | | | vomiting | | [phone] | | | | | type | [...] | | | | | | [place]AST [place] | | | | | | | CT SCAN OF | | | | | | | ABDOMEN | | | | | | | [place] | | | | | | | [...] | | | | | bypass | [place], | Mailcode: | | | | | Nausea and | [place] | [facility] | | | | | vomiting, | [address] | for Health | | | | | intractabili | Phone: | and Healing, | | | | | ty of | [phone] | Building 1, | | | | | vomiting not | Fax: | 5th Floor | | | | | specified, | [phone] | [place], [place] | | | | | unspecified | | [address] | | | | | vomiting | | Phone: | | | | | type | | [phone] | | | | | Diarrhea, | [...] | | | | | bypass | [place], | [address] | | | | | Nausea and | [place] | for Health | | | | | vomiting, | [address] | and Healing, | | | | | intractabili | Phone: | Building 2 | | | | | ty of | | [place], [place] | | | | | vomiting not | Fax: | [address] | | | | | specified, | [phone] | Phone: | | | | | unspecified | | [phone] | | | | | vomiting | | Fax: | | | | | type | | [phone] | | | | | Diarrhea, | [...] | | | | | | | [place] UPPER GI | | | | | [...] | [facility] | | | with INSPECTOR SHELLS | | hypertension | [address] | [address] | | | | | Right | [address] | [address] | | | | | heart | [facility] [place] | Mailcode: | | | | | failure | [address] | Center for | | | | | ([facility]) Type | Phone: | Health and | | | | | 2 diabetes | [phone] | Healing, | | | | | mellitus | Fax: | Building 2 | | | | | without | [phone] | [facility] [place] | | | | | complication | | [address] | | | | | , with | | Phone: | | | | | long-term | | | | | | | current use | | Fax: | | | | | of insulin | | [phone] | | | | | ([facility] [...] | Center at [facility] [address] | AGACNP [address] | gastric bypass | | | | [address] | Ave [place], [place] | (Primary Dx); Nausea | | | | Mailcode: Center | [address] | and vomiting, | | | | for Health and | | intractability of | | | | Healing, Building [address] | | vomiting not | | | | [place], [place] | | specified, | | | | [address] | | unspecified vomiting | | | | [phone] | | type; Diarrhea, | | | [...] getting fluids at a local clinic in [place] -I will contact you if further testing is indicated -follow up with once of our surgeons once testing is complete -get some protein de la o--isopure or premier protein de la o. documented in this encounter Progress Notes Melissa Garay RN - 03/01/2019 1:50 PM PDTSpoke with patient's PCP office [phone] and notified them that Infusion unit at [facility] (fax [phone]) requires a provider with privileges there to sign the IV infusion orders. Since Dr. Cardenas is out on maternity leave, SOFI Ulrich will check with provider covering. Infusion order and chart not e faxed to PCP at [phone]. Patient notified. Charli Murillo MA - 03/01/2019 1:50 PM PDTPatient presents for blood draw per Providers order Site: LEFT A/C Time: 14:30 Patient tolerated well; ONE ATTEMPT Keren Arcos [facility] INSPECTOR SHELLS - 03/01/2019 1:50 PM PDT BARIATRIC SURGERY [...] Allergic rhinitis Anemia Anxiety Bipolar disorder ([facility]) Chronic wound infection of abdomen [...] nilesh limb 150 cm or less 8 [facility] Social History Socioeconomic History Marital [...] file Gets together: Not on file Attends pentecostalism service: Not on file Active member of club or organization: Not on file Attends meetings of clubs or organizations: Not on file Relationship status: Not on file Other Topics Concern Not on file Social History Narrative Updated 11/09/15 She lives in [place] with her mother and her sister (also her caregiver) lives in an apa rtment/duplex below. She has 2 grandchildren (age 4 and 7) who live with her daughter and son-in-law Her boyfriend lives in [place] HFpEF, DM2, HTN, Sleep Apnea (unable to tolerate CPAP), Hypothyroidism, Severe Obesity ([facility] weight 495 lbs) Last seen [...] program here and refer her to our radiological equipment specialist who also has expertise in physical [...] buccal film, , Disp: , Rfl: CALCIUM CRB&EQK-H9-SUU77-GENIS ORAL, Take 2 tablets by mouth two [...] oral tablet, Take 1 tablet by mo [facility] once daily., Disp: 90 tablet, Rfl: [...] y.o. female who is 1 year S/P Nilseh en y gastric bypass. 1. Nausea/Diarrhea x 4 weeks S/p Nilesh en y gastric bypass. -Denies GERD, dysphagia, constipation -ordered UGI, EGD to assess for ulcer/possible stricture/hernia, etc -CT scan also ordered to assess hernias sites--concern for possible incarceration? -will also coordinate IV fluid to be administered closer to her home in [place]. LR 1-2 L 3 times weekly, until [...] to plan and will call and/or send [employer] message if any issues. Start time 1422, end time 1455. I spent a total of 33 minutes face to face with this patie nt. Over 50% of visit was in counseling. ALBINA Perrin Bariatric Surgery Nurse Practitioner [facility] | [address] | [place] | [address] | documented in th is encounter Plan of Treatment +--------+ + + + + | Date | Type | Specialty | Care Team | Description | +--------+ + + + + | 05/13/ | Office | Plastic Surgery | Archie Ybarra MD | | | 2018 | Visit | | [address] | | | | | | [place], [place] | | | | | | [address] | | | | | | [phone] | | | | | | | [...] [place] | | | | | | [address] | | | | | | [phone] | | | | | | | [...] Note | + + | Service Account, [employer] In Interface - 03/08/2019 3:33 PM PDT [...] | [facility] | [address] | [place] [address] | | | SERVICES, CORE | CLARENCE [...] B: | | | | | | Integrien.APImetrics/CSPerformed | | | | | | by [facility],[address] | | | | | | [address] [facility],[place] | | | | | | [address] | | | | | | [phone].SprayCoollab. | | | | | | comIsmael [...] [facility] | [address] | [place], [place] | | | UNIV PTH - INTFC | | [address] | | + + + + + [...] [facility] | | | (YEN NOAH) | [facility],[address] | | REG UNIV | | | SERUM | [place]ia Parson, [facility],[place] | | PTH - INTFC | | | | [address] | | | | | | [phone].aruplab. | | | | | | APImetricsIsmael MD, | | | | | | [...] B: | | | | | | Integ[employer].APImetrics/ | | | | + + + + + + + + | Specimen | + + | Blood - Blood | | (substance) | + + + + + + + | Performing | Address | City/State/Zipcode | Phone Number | | Organization | | | | + + + + + | [facility] | [address] | [place], [place] | | | UNIV PTH - INTFC | | [address] | | + + [...] | + + + + + | [facility] A[facility] | [address] | [place] [address] | | | SERVICES, CORE | PARK [...] [facility] | [address] | [place] [address] | | | SERVICES, CORE | CLARENCE [...] B: | | | | | | Ext[employer]/CSPerformed | | | | | | by [facility],[address] | | | | | | [address], [facility],[place] | | | | | | [address] | | | | | | [phone].Integrien. | | | | | | Ismael [...] [facility] | [address] | [place], [place] | | | UNIV PTH - INTFC | | [address] | | + + + + + [...] INTFC | | | | determined by [employer] | | | | | | [email or web address]. See | | | | | | Compliance Statement B: | | | | | | Integrien.APImetrics/CSPerformed | | | | | | by [facility],[address] | | | | | | [address] [facility],[place] | | | | | | [address] | | | | | | [phone].Integrien. | | | | | | Ismael [...] [facility] | [address] | [place], [place] | | | UNIV PTH - INTFC | | [address] | | + + + + + [...] [facility] | [address] | [place] [address] | | | SERVICES, CORE | PARK [...] | | | | | determined by [facility] | | | | | | Laboratories. See | | | | | | Compliance Statement B: | | | | | | Longxun [employer] Technologylab.com/CSPerformed | | | | | | by Critical access hospital,[address] | | | | | | [facility] | | | | | | [address] | | | | | | [phone].Longxun Changtian Technologylab. | | | | | | san [facility]an hospitalIsmael MD, | | | | | [...] [facility] | [address] | [place], [place] | | | UNIV PTH - INTFC | | [address] | | + + + + + [...] | + + + + + | [facility] | [address] | [place] [address] | | | SERVICES, CORE | PARK [...] for full anticoagulation: INR for Venous | [facility] | | Thromboembolism (2.0 - 3.0) INR INR for most | LABORATORY | | patients with mech. valves (2.5 - 3.5) INR | LYDIA RANGEL | + + + + + + + + | Performing | Address | City/State/Zipcode | Phone Number | | Organization | | | | + + + + + | [facility] | [address] [facility] | [place] [address] | | | LYDIA RANGEL | CLARENCE [...] [facility] | [address] | [place] [address] | | | SERVICES, SPECIAL | PARK [...] | + + + + + | [facility] | [address] | [place] [address] | | | CLAIRE, LYDIA | CLARENCE [...] | | | | | determined by [employer] | | | | | | Laboratories. See | | | | | | Compliance Statement B: | | | | | | Integrien.APImetrics/CSPerformed | | | | | | by RE[facility],[address] | | | | | | [facility] | | | | | | [address] | | | | | | [phone].Longxun Changtian Technologylab. | | | | | | com, [...] [facility] | [address] | [place], [place] | | | UNIV PTH - INTFC | | [address] | | + + + + + [...] | + + + + + | [facility] | [address] | [place] [address] | | | SERVICES, CORE | CLARENCE [...]
--- OUTSIDE RECORDS SUMMARY | ~2019-05-10 | XMS | Encounter Summary ---
Demographics + + + | Address | [address] | | | [place] [address] | + + + | Home Phone [...] [place], [place] | | | | | [address] | | + + + + + | Ellie Vang | ECON | Unknown | | + + + + + Care Team Providers + +------+ + | Care Running Rigger Name | Role | Phone | [...] | | | | | obesity | [place], [place] | | | | | | (HCC) | [address] | | | | | | Procedures | Phone: | | | | | | PHYSICAL | | | | | | | THERAPY | Fax: | | | | | | REFERRAL | [phone] | | +--------+--------+ + + + + Encounter Details +--------+ + + + + | Date | Type | Department | Care Team | Description | +--------+ + + + + | 06/22/ | Transformation Specialist | Digestive Health | Ion Pandey, | Pre-op evaluation | | 2016 | | Center at [facility] [address] | [address] | (Primary Dx); Morbid | | | | [address] | [place], [place] | obesity (HCC) | | | | Mailcode: Center | [address] | | | | | for Health and | | | | | | Healing, [address] | | | | | | [place], [place] | | | | | | [address] | | | | | | [phone] | | | +--------+ + + + [...] | | | | | | [place], [place] | | | | | | [address] | | | | | | [phone] | | | | | | | | +--------+ + + + + | 06/27/ | Telephone-S | Pre-operative | | | | 2018 | cheduled | Medicine | | | +--------+ + + + + | 06/30/ | Office | Cardiology | Randell Franks, | | | 2018 | Visit | | [address] | | | | | | [place], [place] | | | | | | [address] | | | | | | [phone] | | | | | | | [...]
--- OUTSIDE RECORDS SUMMARY | ~2019-05-10 | XMS | Encounter Summary ---
Demographics + + + | Address | [address] | | | [place] [address] | + + + | Home Phone [...] [place], [place] | | | | | [address] | | + + + + + | Ellie Vang | ECON | Unknown | | + + + + + Care Team Providers + +------+ + | Care Tunnel Elastic Operator Lockstitch Name | Role | Phone | + [...] | | | | | Procedures | [place], [place] | [place], [place] | | | | | CONSULT TO | [address] | [address] | | | | | CAR | Phone: | Phone: | | | | | PREVENTATIVE | [phone] | [phone] | | | | | [facility] - | Fax: | Fax: | | | | | LIPIDS | [phone] | [phone] | +--------+--------+ + + + + Encounter Details +--------+---------+ + + + | Date | Type | Department | Care Team | Description | +--------+---------+ + + + | 09/11/ | Office | Cardiology | Olga Lidia Montanez, | 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 | Visit | Preventive at [facility] | [address] | BMI of 70 and over, | | | | [address] | [address] | adult (HCC) (Primary | | | | Mailcode: CH9A | [place], [place] | Dx) | | | | [facility] | [address] | | | | | and Healing, | | | | | | Building [address] | | | | | | [place], [place] | | | | | | [address] | | | | | | [phone] | | | +--------+---------+ + + + [...] appointment, Dietitian: Olga Lidia Montanez RD, LD [facility] Bariatric department (to reschedule classes): [phone] Goals: 1. Try to stop buying Pop-Tarts 2. Replace afternoon snack (think of this as lunch) with vegetables or fruit -cucumbers, carrots, broccoli, cauliflower, etc. -try making ranch dip w/ nonfat plain yogurt (regular or Maltese) (or mix yogurt w/ salsa; o r chipotle hot sauce & kalispel juice) 3. Snack ideas: -fruit -vegetables (with hummus or yogurt dip) -Maltese yogurt - light (have w/ fruit if you're still hungry) -applesauce - unsweetened, w/ lowfat string cheese -1/4 cup nuts -lowfat string cheese -low-fat or non-fat cottage cheese w/ tomatoes 4. Aim for 60-80 grams of protein a day (see list) 5. Add Maltese yogurt to breakfast Heart Protection Kitchen from [facility] Healthy eating made simple. What: FREE heart-healthy cooking demonstrations led by guest concrete technician and nutrition experts. Samples are provided! Where: [facility] ([facility]), September, 2nd floor teaching kitchen When: All classes from 11:00am-12:00pm ? October 12 (led by Dr. Paulino Carreno MD) Please contact Keerthi Boyer at [phone] or email at [email or web address] for information on upcoming classes and to register. Space is limited - reserve your seat today! Want more info on what to eat? Watch the [employer] video, "Healthy Eating 101," at [email or web address]/[email or web address] documented in this encounter Progress Notes Olga Lidia Montanez RD - 09/11/2017 2:30 PM PSTFormatting of this note might be different fro m the original. [facility] of Preventive Cardiology, Nutrition Consultation Referring provider: Dr. Randell Franks MD Referring diagnosis: obesity, HF, DM2 Visit type: Initial; oxhi-we-wlbn visit with patient Questions/Information desired today: Hoping [...] Still has bariatric notebooks at home. Per [employer] message from Dr. Pandey 09/10/17: "Just tell [...] & 1% milk; occ w/ applesauce or Maltese yogurt No L S (3pm): pop-tart or [...] in PT 2x/week for bariatric program (in [place]) UBW: 385-391 lbs Max weight: 529 lbs Weight history: lost from 495 lbs to 383 lbs in 1160-6700 on Atkins diet ANTHROPOMETRICS: Height: Ht Readings from Last 1 Encounters: 09/11/17 1.549 m (5' 1") Weight: Wt Readings from Last 1 Encounters: 09/11/17 176.5 kg (389 lb 3.2 oz) 11/28/16 179.443 kg (395 lb 10 oz) Body mass index is 73.54 kg/m. Weight pattern changer the past year: 6 lb wt [...] weight loss; anticipate excellent compliance in the [facility] surgery program. Currently eating energy-dense/nurient-poor foods in [...] of protein a day - add light Maltese yogurt to breakfast; include lean protein with PM snack/lunch 3. D/c carbonated beverages (e.g., diet soda); replace with water, Crystal Light, diet deca f tea, or other calorie-free still beverage Contact information was provided; call or send [employer] message to dietitian with any questi ons. [...] [address]ann[address] | | | | | | [place], [place] | | | | | | [address] | | | | | | [phone] | | | | | | | [...] | | | | | [place], [place] | | | | | | [address] | | | | | | [phone] | | | | | | | [...]
--- OUTSIDE RECORDS SUMMARY | ~2019-05-10 | XMS | Encounter Summary ---
Demographics + + + | Address | [address] | | | [place] [address] | + + + | Home Phone [...] [place], [place] | | | | | [address] | | + + + + + | Ellie Vang | ECON | Unknown | | + + + + + Care Team Providers + +------+ + | Care Securities Clerk Name | Role | Phone | [...] 2014 | | Center at [facility] [address] | [address] | (11/03 and 11/06 phone | | | | [address] | Lesly Gutiérrez [place], | calls) | | | | Mailcode: [place] | [place] [address] | | | | | for Health and | | | | | | [facility] 2 | | | | | | [place], [place] | | | | | | [address] | | | | | | [phone] | | | +--------+ + + + [...] Flannery | | | | | | [place], [place] | | | | | | [address] | | | | | | [phone] | | | | | | | [...] | | | | | [place], [place] | | | | | | [address] | | | | | | [phone] | | | | | | | | +--------+ + + + + | 07/08/ | Procedure | Surgery | | | | 2018 | Pass | | | | +--------+ + + + + documented as of this encounter Visit Diagnoses Not on filedocumented in this encounter"
--- OUTSIDE RECORDS SUMMARY | ~2019-05-10 | XMS | Encounter Summary ---
Demographics + + + | Address | [address] | | | [place] [address] | + + + | Home Phone [...] [place], [place] | | | | | [address] | | + + + + + | Ellie Vang | ECON | Unknown | | + + + + + Care Team Providers + +------+ + | Care 411 Directory Assistance Operator Name | Role | Phone | [...] | 2018 | Visit | Preventive at [facility] | MD [address] | mellitus without | | | | [address] | Ave [place], [place] | complication, with | | | | Mailcode: [facility] | [address] | long-term current | | | | [facility] | [phone] | use of insulin ([facility]) | | | | and Healing, | | (Primary Dx); | | | | Building [address] | | Chronic right-sided | | | | [place], [place] | | heart failure (HCC) | | | | [address] | | | | | | [phone] | | | +--------+---------+ + + + [...] management of her heart failure by her Pharmacists 3) Check A1c, lipids 4) Await bariatric surgery in February 2018 5) Continue phentermine 37.5 mg daily 6) Continue wound care, non-pressure ambulation of right foot wound 7) Follow-up 4-6 months In the interim, the patient underwent bariatric surgery and was discharged from the [facility] on 03/03/2018. Today, the patient [...] 06/23 - She is working with the top collar baster in her office - She is taking [...] tongue once daily., Disp: , Rfl: CALCIUM [id number]-GENIS ORAL, Take 2 tablets by mouth two [...] 3.19 11/28/2016 Lab Results Component Value Date PISE49SLIOMQ 88.6 05/27/2018 Lab Results Component Value Date [...] weight of 320lbs. Plan to work with top collar baster from bariatric surgery, identify etio logy of [...] is currently being managed well by her Pharmacists with diuretics and mainte nance of her [...] Gissell Clements MD Fellow, Cardiovascular Medicine Pager [phone] signed by Gissell Clements MD at 06/04/2018 [...] | | | | | | [place], [place] | | | | | | [address] | | | | | | [phone] | | | | | | | [...] | | | | | [place], [place] | | | | | | [address] | | | | | | [phone] | | | | | | | [...]
--- OUTSIDE RECORDS SUMMARY | ~2019-05-10 | XMS | Encounter Summary ---
Demographics + + + | Address | [address] | | | [place] [address] | + + + | Home Phone [...] [place], [place] | | | | | [address] | | + + + + + [...] | | | [address] | [facility] | | | | | Mailcode: Center | [place], [place] | | | | | [facility] and | [address] | | | | | [facility] 2 | [phone] | | | | | [place], [place] | | | | | | [address] | | | | | | [phone] | | | +--------+ + + + [...] | Archei Ybarra MD | | | 2018 | Visit | | [address] | | | | | | [place], [place] | | | | | | [address] | | | | | | [phone] | | | | | | | | +--------+ + + + + | 06/27/ | Telephone-S | Pre-operative | | | | 2018 | cheduled | Medicine | | | +--------+ + + + + | 06/30/ | Office | Cardiology | Randell Franks, | | | 2018 | Visit | | [address] | | | | | | Ave [place], [place] | | | | | | [address] | | | | | | [phone] | | | | | | | | +--------+ + + + + | 07/08/ | Procedure | Surgery | | | | 2018 | Pass | | | | +--------+ + + + + documented as of this encounter Visit Diagnoses Not on filedocumented in this encounter"
--- OUTSIDE RECORDS SUMMARY | ~2019-05-10 | XMS | Encounter Summary ---
Demographics + + + | Address | [address] | | | [place] [address] | + + + | Home Phone [...] [place], [place] | | | | | [address] | | + + + + + | Ellie Vang | ECON | Unknown | | + + + + + Care Team Providers + +------+ + | Care Stained Glass Window Designer Name | Role | Phone | + +------+ + | Fadi Goodrich DO | PCP | | + +------+ + Encounter Details +--------+ + + + + | Date | Type | Department | Care Team | Description | +--------+ + + + + | 12/05/ | Abstract | Cardiology | Randell Franks, | | | 2016 | | Preventive at [facility] | MD [address] | | | | | [address] | Ave [place], [place] | | | | | Mailcode: CH9A | [address] | | | | | [facility] | [phone] | | | | | and Healing, | | | | | | Building [address] | | | | | | [place], [place] | | | | | | [address] | | | | | | [phone] | | | +--------+ + + + [...] Flannery | | | | | | [place], [place] | | | | | | [address] | | | | | | [phone] | | | | | | | [...] | | | | | [place], [place] | | | | | | [address] | | | | | | [phone] | | | | | | | | +--------+ + + + + | 07/08/ | Procedure | Surgery | | | | 2019 | Pass | | | | +--------+ + + + + documented as of this encounter Visit Diagnoses Not on filedocumented in this encounter"
--- OUTSIDE RECORDS SUMMARY | ~2019-05-10 | XMS | Encounter Summary ---
Demographics + + + | Address | [address] | | | [place] [address] | + + + | Home Phone [...] [place], [place] | | | | | [address] | | + + + + + | Ellie Vang | ECON | Unknown | | + + + + + Care Team Providers + +------+ + | Care Senior Software Development Manager Name | Role | Phone [...] | | 2015 | | Center at [facility] [address] | ACNP [address] | | | | | [address] | [address] [place], [place] | | | | | Mailcode: [place] | [address] | | | | | for Health and | | | | | | [facility] 2 | | | | | | [facility] [place] | | | | | | [address] | | | | | | | [...] [address]annery | | | | | | [place], [place] | | | | | | [address] | | | | | | [phone] | | | | | | | [...] | | | | | [place], [place] | | | | | | [address] | | | | | | [phone] | | | | | | | | +--------+ + + + + | 07/08/ | Procedure | Surgery | | | | 2018 | Pass | | | | +--------+ + + + + documented as of this encounter Visit Diagnoses Not on filedocumented in this encounter"
--- OUTSIDE RECORDS SUMMARY | ~2019-05-10 | XMS | Encounter Summary ---
Demographics + + + | Address | [address] | | | [place] [address] | + + + | Home Phone [...] [place], [place] | | | | | [address] | | + + + + + | Ellie Vang | ECON | Unknown | | + + + + + Care Team Providers + +------+ + | Care Ag Equipment Field Service Technician Name | Role | Phone [...] | | 2014 | | Center at [facility] [address] | [facility] [address] | | | | | [address] | [place], [place] | | | | | Mailcode: Center | [address] | | | | | for Health and | | | | | | [place] [address] | | | | | | [place], [place] | | | | | | [address] | | | | | | [phone] | | | +--------+ + + + [...] [address]ann[address] | | | | | | [place], [place] | | | | | | [address] | | | | | | [phone] | | | | | | | [...] | | | | [place], [place] | | | | | | [address] | | | | | | [phone] | | | | | | | | +--------+ + + + + | 07/08/ | Procedure | Surgery | | | | 2019 | Pass | | | | +--------+ + + + + documented as of this encounter Visit Diagnoses Not on filedocumented in this encounter"
--- OUTSIDE RECORDS SUMMARY | ~2019-05-10 | XMS | Encounter Summary ---
Demographics + + + | Address | [address] | | | [place] [address] | + + + | Home Phone [...] [place], [place] | | | | | [address] | | + + + + + | Ellie Vang | ECON | Unknown | | + + + + + Care Team Providers + +------+ + | Care Architectural Modeler Name | Role | Phone | + [...] | | 2018 | | Preventive at [facility] | MD [address] | (Phentermine 37.5mg) | | | | [address] | [place], [place] | | | | | Mailcode: [place] | [address] | | | | | [facility] | [phone] | | | | | and [address], | | | | | | [address] | | | | | | [place], [place] | | | | | | [address] | | | | | | [phone] | | | +--------+ + + + [...] [address]ann[address] | | | | | | [place], [place] | | | | | | [address] | | | | | | [phone] | | | | | | | [...] | | | | | [place], [place] | | | | | | [address] | | | | | | [phone] | | | | | | | | +--------+ + + + + | 07/08/ | Procedure | Surgery | | | | 2019 | Pass | | | | +--------+ + + + + documented as of this encounter Visit Diagnoses Not on filedocumented in this encounter"
--- OUTSIDE RECORDS SUMMARY | ~2019-05-10 | XMS | Encounter Summary ---
Demographics + + + | Address | [address] | | | [place] [address] | + + + | Home Phone [...] Providers + +------+ + | Care Cloth Printer Helper Name | Role | Phone [...] | | 2017 | | Preventive at [facility] | MD [address] | | | | | [address] | [place] [facility] [place] | | | | | Mailcode: [facility] | [address] | | | | | [facility] | [phone] | | | | | and [address] | | | | | | [address] | | | | | | [facility] [place] | | | | | | [address] | | | | | | [phone] | | | +--------+ + + + [...] [place] | | | | | | [address] | | | | | | [phone] | | | | | | | [...] | | | | | [place], [place] | | | | | | [address] | | | | | | [phone] | | | | | | | | +--------+ + + + + | 07/08/ | Procedure | Surgery | | | | 2018 | Pass | | | | +--------+ + + + + documented as of this encounter Visit Diagnoses Not on filedocumented in this encounter"
--- OUTSIDE RECORDS SUMMARY | ~2019-05-10 | XMS | Encounter Summary ---
Demographics + + + | Address | [address] | | | [place] [address] | + + + | Home Phone [...] [place], [place] | | | | | [address] | | + + + + + | Ellie Vang | ECON | Unknown | | + + + + + Care Team Providers + +------+ + | Care Director Of Accounting Name | Role | Phone | + [...] [facility] [address] | [place], [place] | | | | | [place] Mailcode: | [address] | | | | | [facility] | [phone] | | | | | and [address], | | | | | | [address] | | | | | | [place], [place] | | | | | | [address] | | | | | | [phone] | | | +--------+ + + + [...] Discharge Instructions Instructions Keerthi Bernard RN - 04/07/2019[place] [facility] Instructions after EGD (Upper Endos copy) [...] hours or on weekends and holiday Hospital Cytology Laboratory Manager toll free [phone]. [phone] and have the GI doctor manager location paged. The provider who performed your procedure: [...] | | 0 | | | | [id number] | mouth two times | | | [...] from the original. PRE PROCEDURE NOTE: MR# [id number] Subjective: Elzbieta Cristina is a 44 y.o. [...] [address] | | | | | | [place], [place] | | | | | | [address] | | | | | | [phone] | | | | | | | [...] [place] | | | | | | [address] | | | | | | [phone] | | | | | | | [...] + | MRN: | [facility] | | [id number] Date: 04/07/2019Patient Name: Elzbieta Curtis #: | ENDOSCOPY | | [id number] of : [id number]: [id number] Type: | | | AmbulatoryRoom: Endo 5Procedure: Upper GI | | | endoscopyIndications: Generalized abdominal pain, Nausea | | | with vomitingProviders: TAL LUND MD | | | (Doctor), KEERTHI BERNARD RN (Nurse), | | | EREN SLATER (Crop Grain Or Livestock Farm Manager)Referring MD: SYLVIA Kilpatrick | | | KENNY [...] | | | The [employer] [id number] Endoscope #[id number] | | | was introduced through the [...]
--- OUTSIDE RECORDS SUMMARY | ~2019-05-10 | XMS | Encounter Summary ---
Demographics + + + | Address | [address] | | | [place] [address] | + + + | Home Phone [...] + | Katalina Padilla | ECON | [address] | | | | | [place], [place] | | | | | [address] | | + + + + + | Ellie Vang | ECON | Unknown | | + + + + + Care Team Providers + +------+ + | Care Housekeeping Manager Name | Role | Phone | [...] | | | | | bypass | [place], | Mailcode: | | | | | Nausea and | [place] | [address] [facility] | | | | | vomiting, | [address] | Hospital | | | | | intractabili | Phone: | [place], [place] | | | | | ty of | | [address] | | | | | vomiting not | Fax: | Phone: | | | | | specified, | [phone] | [phone] | | | | | unspecified | | Fax: | | | | | vomiting | | [phone] | | | | | type | [...] | | | | | bypass | [place], | Mailcode: | | | | | Nausea and | [place] | [facility] | | | | | vomiting, | [address] | for Health | | | | | intractabili | Phone: | and Healing, | | | | | ty of | [phone] | Building 1, | | | | | vomiting not | Fax: | 5th Floor | | | | | specified, | [phone] | [place], [place] | | | | | unspecified | | [address] | | | | | vomiting | | Phone: | | | | | type | | [phone] | | | | | Diarrhea, | [...] | | | | | bypass | [place], | [address] | | | | | Nausea and | [place] | for Health | | | | | vomiting, | [address] | and Healing, | | | | | intractabili | Phone: | Building 2 | | | | | ty of | | [place], [place] | | | | | vomiting not | Fax: | [address] | | | | | specified, | [phone] | Phone: | | | | | unspecified | | [phone] | | | | | vomiting | | Fax: | | | | | type | | [phone] | | | | | Diarrhea, | [...] | [facility] | | | with EXTERMINATOR HELPER | | hypertension | [address] | [address] | | | | | Right | [address] | [address] | | | | | heart | [facility] [place] | Mailcode: | | | | | failure | [address] | Center for | | | | | ([facility]) Type | Phone: | Health and | | | | | 2 diabetes | [phone] | Healing, | | | | | mellitus | Fax: | Building 2 | | | | | without | [phone] | [facility] [place] | | | | | complication | | [address] | | | | | , with | | Phone: | | | | | long-term | | | | | | | current use | | Fax: | | | | | of insulin | | [phone] | | | | | ([facility] [...] | Center at [facility] [address] | AGACNP [address] | gastric bypass | | | | [address] | Ave [place], [place] | (Primary Dx); Nausea | | | | Mailcode: Center | [address] | and vomiting, | | | | for Health and | | intractability of | | | | Healing, Building 2 | | vomiting not | | | | [place], [place] | | specified, | | | | [address] | | unspecified vomiting | | | | [phone] | | type; Diarrhea, | | | [...] getting fluids at a local clinic in [place] -I will contact you if further testing is indicated -follow up with once of our surgeons once testing is complete -get some protein de la o--isopure or premier protein de la o. documented in this encounter Progress Notes Melissa Garay RN - 03/01/2019 1:50 PM PDTSpoke with patient's PCP office [phone] and notified them that Infusion unit at [facility] (fax [phone]) requires a provider with privileges there to sign the IV infusion orders. Since Dr. Cardenas is out on maternity leave, SOFI Ulrich will check with provider covering. Infusion order and chart not e faxed to PCP at [phone]. Patient notified. Charli Murillo MA - 03/01/2019 1:50 PM PDTPatient presents for blood draw per Providers order Site: LEFT A/C Time: 14:30 Patient tolerated well; ONE ATTEMPT Keren Arcos [facility] EXTERMINATOR HELPER - 03/01/2019 1:50 PM PDT BARIATRIC SURGERY FOLLOW-UP ID: Elzbieta Critsina is a 43 y.o. patient who underwent [...] Dr. Andie Brian Incisional hernia repair 03/01/2015 [facility]/ Dr. Cantu. Primary fascial closure and scar excision Lap gastric byp, and nilesh-en-y gastroenterostomy w/ nilesh limb 150 cm or less 8 [facility] Social History Socioeconomic History [...] file Gets together: Not on file Attends christianity service: Not on file Active member of club or organization: Not on file Attends meetings of clubs or organizations: Not on file Relationship status: Not on file Other Topics Concern Not on file Social History Narrative Updated 11/09/15 She lives in [place] with her mother and her sister (also her caregiver) lives in an apa rtment/duplex below. She has 2 grandchildren (age 4 and 7) who live with her daughter and son-in-law Her boyfriend lives in [place] HFpEF, DM2, HTN, Sleep Apnea (unable to tolerate CPAP), Hypothyroidism, Severe Obesity ([facility] 495 lbs) Last seen by [...] program here and refer her to our consumer education specialist who also has expertise in physical [...] buccal film, , Disp: , Rfl: CALCIUM [id number] ORAL, Take 2 tablets by mouth two [...] oral tablet, Take 1 tablet by mo [facility] once daily., Disp: 90 tablet, Rfl: [...] be administered closer to her home in [place]. LR 1-2 L 3 times weekly, until [...] to plan and will call and/or send [employer] message if any issues. Start time 1422, end time 1455. I spent a total of 33 minutes face to face with this patie nt. Over 50% of visit was in counseling. ALBINA Perrin Bariatric Surgery Nurse Practitioner [facility] | [address] | [place], [place] | [address] | documented in th is encounter Plan of Treatment +--------+ + + + + | Date | Type | Specialty | Care Team | Description | +--------+ + + + + | 05/13/ | Office | Plastic Surgery | Archie Ybarra MD | | | 2018 | Visit | | [address] | | | | | | [place], [place] | | | | | | [address] | | | | | | [phone] | | | | | | | [...] [place] | | | | | | [address] | | | | | | [phone] | | | | | | | [...] Note | + + | Service Account, [employer] [facility] - 03/08/2019 3:33 PM PDT [...] | + + + + + | [facility] | [address] | [place] [address] | | | SERVICES, CORE | CLARENCE [...] B: | | | | | | [employer]/CSPerformed | | | | | | by [employer] [facility],[address] | | | | | | Natalia Parson [facility] | | | | | | [address] | | | | | | [phone].IQumuluslab. | | | | | | comIsmael [...] [facility] | [address] | [place], [place] | | | UNIV PTH - INTFC | | [address] | | + + + + + [...] | | | SERUM | Natalia Parson, [facility],[place] | | PTH - INTFC | | | | [address] | | | | | | [phone].aruplab. | | | | | | Simulation SciencesIsmael MD, | | | | | | [...] B: | | | | | | [employer]/ | | | | + + + + + + + + | Specimen | + + | Blood - Blood | | (substance) | + + + + + + + | Performing | Address | City/State/Zipcode | Phone Number | | Organization | | | | + + + + + | [facility] | [address] | [place], [place] | | | UNIV PTH - INTFC | | [address] | | + + + + + [...] + | [facility] ALEJANDRA | [address] | [place] [address] | | | SERVICES, CORE | PARK [...] [facility] | [address] | [place] [address] | | | SERVICES, CORE | CLARENCE [...] B: | | | | | | [employer]/CSPerformed | | | | | | by BM[facility],[address] | | | | | | Natalia Parson, [facility],[place] | | | | | | [address] | | | | | | [phone].[employer]. | | | | | | Ismael [...] [facility] | [address] | [place], [place] | | | UNIV PTH - INTFC | | [address] | | + + + + + [...] INTFC | | | | determined by [employer] | | | | | | [place]. See | | | | | | Compliance Statement B: | | | | | | [employer]/CSPerformed | | | | | | by BMdr,[address] | | | | | | Natalia Parson [facility],[place] | | | | | | [address] | | | | | | [phone].[employer]. | | | | | | Ismael [...] [facility] | [address] | [place], [place] | | | UNIV PTH - INTFC | | [address] | | + + + + + [...] | + + + + + | [facility] | [address] | [place] [address] | | | SERVICES, CORE | PARK [...] B: | | | | | | Trips n Salsalab.com/CSPerformed | | | | | | by [facility],[address] | | | | | | [facility] | | | | | | [address] | | | | | | [phone].Trips n Salsalab. | | | | | | [facility] centerIsmael MD, | | | | [...] [facility] | [address] | [place], [place] | | | UNIV PTH - INTFC | | [address] | | + + + + + [...] CENTER LAB[facility]ORY | [address] | [place] [address] | | | SERVICES, CORE | PARK [...] for full anticoagulation: INR for Venous | [facility] | | Thromboembolism (2.0 - 3.0) INR [...] [facility] | [address] [facility] | [place] [address] | | | LYDIA RANGEL | CLARENCE [...] [facility] | [address] | [place] [address] | | | SERVICES, SPECIAL | PARK [...] | + + + + + | [facility] | [address] | [place] [address] | | | CLAIRE, LYDIA | CLARENCE [...] | | | | | determined by [employer] | | | | | | Laboratories. See | | | | | | Compliance Statement B: | | | | | | [employer]/CSPerformed | | | | | | by BMdr,[address] | | | | | | [facility],[place] | | | | | | [address] | | | | | | [phone].Trips n Salsalab. | | | | | | com, [...] [facility] | [address] | [place], [place] | | | UNIV PTH - INTFC | | [address] | | + + + + + [...] | | | LABORATORY | | | ETHIOPIAN | | | SERVICES, | | | [...] MDRD equation recommended by the National | [facility] | | Kidney Disease Education [...] | + + + + + | [facility] | [address] | [place] [address] | | | SERVICES, CORE | CLARENCE [...]
--- OUTSIDE RECORDS SUMMARY | ~2019-05-10 | XMS | Encounter Summary ---
Demographics + + + | Address | [address] | | | [place] [address] | + + + | Home Phone [...] + | Katalina Padilla | ECON | [address] | | | | | [place], [place] | | | | | [address] | | + + + + + | Ellie Vang | ECON | Unknown | | + + + + + Care Team Providers + +------+ + | Care Embryology Professor Name | Role | Phone | [...] | | | 2017 | Event | [facility] | Joann Person MD,PhD | | | | | Admitting Desk | [address] | | | | | Located on the 9 | [facility] [place] | | | | | floor [address] [facility] | [address] | | | | | [address] | [phone] | | | | | [place], [place] | | | | | | [address] | Graham Honeycutt, | | | | | | OCCUPATIONAL THERAPY PROFESSOR [address] | | | | | | [address] | | | | | | [place], [place] | | | | | | [address] | | | | | | [phone] | | | | | | | [...] | | Endotracheal Tube; 7; Oral; | OCCUPATIONAL THERAPY PROFESSOR | OCCUPATIONAL THERAPY PROFESSOR | | | Cuffed; 06/23/18; 1542 | [...] [address] | | | | | | [place], [place] | | | | | | [address] | | | | | | [phone] | | | | | | | [...] [place] | | | | | | [address] | | | | | | [phone] | | | | | | | [...]
--- OUTSIDE RECORDS SUMMARY | ~2019-05-10 | XMS | Encounter Summary ---
Demographics + + + | Address | [address] | | | [place] [address] | + + + | Home Phone [...] + | Katalina Padilla | ECON | [address] | | | | | [place], [place] | | | | | [address] | | + + + + + [...] | | Review | | | | [facility] | | | | | | [address] | | | | | | Mailcode: OC2L | | | | | | [facility] | | | | | | and [address], | | | | | | Building 2 | | | | | | [place], [place] | | | | | | [address] | | | | | | [phone] | | | +--------+ + + + [...] [address] | | | | | | [place], [place] | | | | | | [address] | | | | | | [phone] | | | | | | | [...] [place] | | | | | | [address] | | | | | | [phone] | | | | | | | | +--------+ + + + + | 07/08/ | Procedure | Surgery | | | | 2019 | Pass | | | | +--------+ + + + + documented as of this encounter Visit Diagnoses Not on filedocumented in this encounter"
--- OUTSIDE RECORDS SUMMARY | ~2019-05-10 | XMS | Encounter Summary ---
Demographics + + + | Address | [address] | | | [place] [address] | + + + | Home Phone [...] [place], [place] | | | | | [address] | | + + + + + | Ellie Vang | ECON | Unknown | | + + + + + Care Team Providers + +------+ + | Care Blast Setter Name | Role | Phone | [...] | | 2014 | | Preventive at [facility] | MD [address] | | | | | [address] | Ave [place], [place] | | | | | Mailcode: 9A | [address] | | | | | [facility] | [phone] | | | | | and [address], | | | | | | Building 1 | | | | | | [place], [place] | | | | | | [address] | | | | | | [phone] | | | +--------+--------+ + + + [...] 2019 | Visit | | [address] | | | | | | [place], [place] | | | | | | [address] | | | | | | [phone] | | | | | | | [...] | | | | | [address] [place], [place] | | | | | | [address] | | | | | | [phone] | | | | | | | | +--------+ + + + + | 07/08/ | Procedure | Surgery | | | | 2018 | Pass | | | | +--------+ + + + + documented as of this encounter Visit Diagnoses Not on filedocumented in this encounter"
--- OUTSIDE RECORDS SUMMARY | ~2019-05-10 | XMS | Encounter Summary ---
Demographics + + + | Address | [address] | | | [place] [address] | + + + | Home Phone [...] [place], [place] | | | | | [address] | | + + + + + | Ellie Vang | ECON | Unknown | | + + + + + Care Team Providers + +------+ + | Care Instructor Traffic Safety Name | Role | Phone | + [...] | | | | | Healing, | [place], [place] | | | | | | Building [address] | [address] | | | | | | [place], [place] | Phone: | | | | | | [address] | [phone] | | | | | | Phone: | Fax: | | | | | | [phone] | [phone] | | | | | | Fax: | | | | | | | [phone] | | +--------+--------+ + + + + [...] | | | | | Healing, | [place], [place] | | | | | | Building [address] | [address] | | | | | | [place], [place] | Phone: | | | | | | [address] | [phone] | | | | | | Phone: | Fax: | | | | | | [phone] | [phone] | | | | | | Fax: | | | | | | | [phone] | | +--------+--------+ + + + + Encounter Details +--------+ + + + + | Date | Type | Department | Care Team | Description | +--------+ + + + + | 10/07/ | Hospital | Radiology/Imaging | | | | 2012 | Encounter | Lab at [facility] [address] | | | | | [address] Mailcode: | | | | | | [facility] | | | | | | Health and Healing, | | | | | | Building 1, 3rd | | | | | | Floor [place], [place] | | | | | | [address] | | | | | | [phone] | | | +--------+ + + + [...] [place] | | | | | | [address] | | | | | | [phone] | | | | | | | [...] [place] | | | | | | [address] | | | | | | [phone] | | | | | | | [...] | [facility] | [address] [facility] | [place] [address] | | | OF CARE TESTS | | | | + + + + + documented in this encounter Visit Diagnoses + + | Diagnosis | + + | Hernia Hernia of unspecified site of abdominal cavity without mention of obstruction | | or gangrene | + + documented in this encounter"
--- OUTSIDE RECORDS SUMMARY | ~2019-05-10 | XMS | Encounter Summary ---
Demographics + + + | Address | [address] | | | [place] [address] | + + + | Home Phone [...] [place], [place] | | | | | [address] | | + + + + + | Ellie Vang | ECON | Unknown | | + + + + + Care Team Providers + +------+ + | Care Accredited Pharmacy Technician Name | Role | Phone | [...] | | | [address] | [facility] | | | | | Mailcode: Center | [place], [place] | | | | | [facility] and | [address] | | | | | [facility] 2 | [phone] | | | | | [place], [place] | | | | | | [address] | | | | | | [phone] | | | +--------+ + + + [...] [address] | | | | | | [place], [place] | | | | | | [address] | | | | | | [phone] | | | | | | | | +--------+ + + + + | 06/27/ | Telephone-S | Pre-operative | | | | 2018 | cheduled | Medicine | | | +--------+ + + + + | 06/30/ | Office | Cardiology | Randell Franks, | | | 2018 | Visit | | [address] | | | | | | Ave [place], [place] | | | | | | [address] | | | | | | [phone] | | | | | | | | +--------+ + + + + | 07/08/ | Procedure | Surgery | | | | 2018 | Pass | | | | +--------+ + + + + documented as of this encounter Visit Diagnoses Not on filedocumented in this encounter"
--- OUTSIDE RECORDS SUMMARY | ~2019-05-10 | XMS | Encounter Summary ---
Demographics + + + | Address | [address] | | | [place] [address] | + + + | Home Phone [...] [place], [place] | | | | | [address] | | + + + + + | Ellie Vang | ECON | Unknown | | + + + + + Care Team Providers + +------+ + | Care Hadoop Infrastructure Architect Name | Role | Phone | + +------+ + | Fadi Goodrich DO | PCP | | + +------+ + Encounter Details +--------+ + + + + | Date | Type | Department | Care Team | Description | +--------+ + + + + | 10/27/ | Telephone | Pain Center at [facility] | Leslie Mistry, | | | 2017 | | Floor [address] | PhD [address] [facility] | | | | | [address] Mailcode: | [address] | | | | | [facility] [place], [place] | | | | | Health and Healing, | [address] | | | | | [facility] | [phone] | | | | | Floor [place], [place] | | | | | | [address] | | | | | | [phone] | | | +--------+ + + + [...] [place] | | | | | | [address] | | | | | | [phone] | | | | | | | [...] | | | | | [address] [place], [place] | | | | | | [address] | | | | | | [phone] | | | | | | | | +--------+ + + + + | 07/08/ | Procedure | Surgery | | | | 2018 | Pass | | | | +--------+ + + + + documented as of this encounter Visit Diagnoses Not on filedocumented in this encounter"
--- OUTSIDE RECORDS SUMMARY | ~2019-05-10 | XMS | Encounter Summary ---
Demographics + + + | Address | [address] | | | [place] [address] | + + + | Home Phone [...] [place], [place] | | | | | [address] | | + + + + + | Ellie Vang | ECON | Unknown | | + + + + + Care Team Providers + +------+ + | Care Operations Clerk Name | Role | Phone | [...] | [facility] Roldan | | | with CHAIR CAR ATTENDANT | | hypertension | [address] | [address] | | | | | Right | [address] | [address] | | | | | heart | [place], [place] | [place], | | | | | failure | [address] | [place] | | | | | ([facility]) Type | Phone: | [address] | | | | | 2 diabetes | [phone] | | | | | | mellitus | Fax: | | | | | | without | [phone] | | | | | | complication | | | | | | | , with | | | | | | | long-term | | | | | | | current use | | | | | | | of insulin | | | | | | | ([facility]) | | | +--------+ + + [...] | | | [address] | [facility] [address] | (Primary Dx); | | | | Mailcode: Center | [place], [place] | 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) | | | | [place], [place] | | | | | | [address] | | | | | | [phone] | | | +--------+---------+ + + + [...] Follow-Up Patient referred by: Randell Franks MD [address] [place] [address] Documented time of visit: 2:36pm to 2:49 (13 minutes ibsi-lo-jzvn with patient) Surgery: Gastric Bypass Date of [...] Medications since surgery: oral - appt with sinter press operator on the 9th Testing blood glucose: 92 [...] beef, cream of wheat, cream of mushroom, mongolian yogurt Fluid choices: water Supplementation: Flinstones, iron, [...] multivitamin & mineral (with iron) supplement, 2/day -5887-5227 mg calcium citrate with vitamin D/day (take in divided doses, not within 2 hour s of multivitamin or iron supplement) -500 mcg/day sublingual B12 supplement (or monthly injections) Continued to reinforce importance of mindful eating. Continue to increase physical activity. Follow up in 3 months or earlier as needed. Tejas Cevallos RD, LD Pager # [phone] signed by Tejas Cevallos RD at 05/27/2018 [...] [place] | | | | | | [address] | | | | | | [phone] | | | | | | | [...] | | | | | [address] [place], [place] | | | | | | [address] | | | | | | [phone] | | | | | | | [...] | NE MNT RE-ASSESSMNT | Routin | 05/27/2018 | [...]
--- OUTSIDE RECORDS SUMMARY | ~2019-05-10 | XMS | Encounter Summary ---
Demographics + + + | Address | [address] | | | [place] [address] | + + + | Home Phone [...] [place], [place] | | | | | [address] | | + + + + + | Ellei Vang | ECON | Unknown | | + + + + + Care Team Providers + +------+ + | Care Wastewater Operator Name | Role | Phone | [...] repair incarcerated | | 2012 | | [facility] | [address] [facility] | ventral hernia; | | | | Admitting Desk | [address] | possible bowel | | | | Located on the | [place], [place] | resection; | | | | floor [address] [facility] | [address] | | | | | [address] | [phone] | | | | | [place], [place] | | | | | | [address] | | | +--------+---------+ + + + [...] yuriy tral hernia. She was transferred from [place] for surgical evaluation of possible incarcer ated [...] yuriy tral hernia. She was transferred from [place] for surgical evaluation of possible incarcer ated [...] keeping you from eating and drinking, Call [phone]. It is important to stay hydrated! If [...] taking narcotic that contain Tylenol (acetaminophen) Example: Lemmon, Lortab, Vicodin, hydrocodone/APAP, Percocet, Tylenol #3 PAIN MEDICATIONS are ONLY REFILLED during CLINIC APPOINTMENTS. Please call [phone] to schedule an appointment. Your Follow-Up Plan Follow up with ROBIN MEJIA in 2 weeks. Contact information: [address] [facility] [address] Vitals on discharge: Ht 154.9 cm (5' [...] different f rom the original. [facility] DEPARTMENT OF SURGERY EMERGENCY GENERAL SURGERY Division [...] without erythema and no infecti on noted. [place] intact : good urine output and Patient [...] clinic - [place] [address] pager number [place] [phone] [facility] [phone] Aminta Goodwin Md - 11/11/2012 7:40 AM PDT [facility] DEPARTMENT OF SURGERY EMERGENCY GENERAL SURGERY Division of Trauma and Critical Care Attending Physician: Andie Brian MD Progress Note Note Date: 11/11/2012 Admission Date: 11/06/2012 DYLAN ROMERO, [id number] Hospital Day #5 INTERVAL EVENTS none acute [...] mg, Rectal, DAILY PRN, Aminta Wilson MD xgxusswpxm-nbdtosqpvykhp-pglstsly (aka FIORICET) 50-325-40 mg 1 Tab, 1 [...] powder 17 g, 17 g, Oral, BID, Aimnta Wilson MD, 17 g at 11/11/12 0803 [...] Jayne Ponce MD, 1 mg at 11/10/12801 yupbrhpryx-vbdoqmfuminda-muxiokqo (aka FIORICET) 50-325-40 mg 1 Tab, 1 [...] in preservative free NaCl 0.9% 50 mL CHILDCARE ADMINISTRATOR infusion, , Intravenous, KIESHA NUOUS, Aracely Flores [...] diet -add bowel regimen Acute pain -HM CHILDCARE ADMINISTRATOR, tylenol -convert to oral pain medication once [...] Fluids: LR 125ml/hr Feeding: NPO Analgesia: Dilaudid CHILDCARE ADMINISTRATOR Sedation: not indicated Thromboprophylaxis: enoxaparin Head of [...] Ponce MD, 1 mg at 11/09/12 0855 tircqtyzja-dlfvljsceexza-htbsvain (aka FIORICET) 50-325-40 mg 1 Tab, 1 [...] in preservative free NaCl 0.9% 50 mL CHILDCARE ADMINISTRATOR infusion, , Intravenous, KIESHA NUOUS, Aracely Flores [...] drainage <30ml for 24hrs Acute pain -HM CHILDCARE ADMINISTRATOR, tylenol Diabetes: -insulin gtt not started due [...] Fluids: LR 125ml/hr Feeding: NPO Analgesia: Dilaudid CHILDCARE ADMINISTRATOR Sedation: not indicated Thromboprophylaxis: enoxaparin Head of bed: > 30 Ulcer prophylaxis: pepcid Glycemic control: adequate Activity/PT/OT: Ongoing Yogurt: ABX on Probiotics:yes AMINTA WILSON MD General Surgery, R1 aleb Walker S, N P - 11/08/2012 8:49 AM PDT [facility] DEPARTMENT OF SURGERY EMERGENCY GENERAL SURGERY Division of Trauma and Critical Care Attending Physician: Andie Brian MD Progress Note Note Date: 11/08/2012 Admission Date: 11/06/2012 DYLAN ROMERO, [id number] Hospital Day #2 INTERVAL EVENTS NO SUBJECTIVE Pain well controlled; has headache attributed to dilaudid CHILDCARE ADMINISTRATOR Tylenol did not help. Flatus: YES Tolerating [...] trials today. -DC ruiz Acute pain -HM CHILDCARE ADMINISTRATOR, tylenol Diabetes: -insulin gtt not started due [...] Fluids: LR 125ml/hr Feeding: NPO Analgesia: Dilaudid CHILDCARE ADMINISTRATOR Sedation: not indicated Thromboprophylaxis: enoxaparin Head of bed: > 30 Ulcer prophylaxis: pepcid Glycemic control: adequate Activity/PT/OT: Ongoing Yogurt: ABX on Probiotics: No KALEB WALKER NP [facility] [address] [place] Critical access hospital elvin Stephens [...] 7.33* PCO2 49* PO2 113* HCO3 25 [id number] 26 S8ZOMMJM 98.3* P3KOWTOHV -- FIO2 60 ABGEXCESS -0.9 Assessment, Medical Decision Making and Plan 1. Incarcerated hernia, now s/p repair and panniculectomy -Binder, pain control, minimize nausea and coughing PRN. -NG clamping trials today. 2. Acute pain -HM CHILDCARE ADMINISTRATOR, tylenol 3. Diabetes: -insulin gtt 4. Morbid [...] Dione Grimes MD R-2, General Surgery Pager: [phone] [facility] [place] Department of Surgery Trauma ICU Team Pager (24hrs/day): [phone] I was present with the resident during the history and exam. I discussed the case with the resident and agree with the findings and plan as documented in the resident s note. KELVIN STEPHENS MD [facility] [address] [place] [address] [id number] Onur Graves MD - 11/07/2012 2:37 AM [...] in preservative free NaCl 0.9% 50 mL CHILDCARE ADMINISTRATOR infusion Intravenous CON TINUOUS Aracely Flores, DO [...] POD#1 s/p primary repair. 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 dirt supervisor and prn tylenol, continue prozac and [...] F: probable remain NPO today A: dilaudid dirt supervisor, prn tylenol S: prn benzos as she is at home T: will start prophylactic lovenox today H: HOB >30 degrees U: pepcid G: insulin gtt ONUR ALLEN MD, PGY3 [place] [address] [id number] [place] [address] Onelia Shrestha MD - 11/06/2012 8:41 AM PDT [facility] DEPARTMENT OF SURGERY Division of Trauma and Critical Care Emergency General Surgery / Acute Care Surgery Attending Physician: Andie Brian MD Note Date: 11/06/2012 Admission Date: 11/06/2012 DYLAN ROMERO, [id number] Hospital Day #0 OVERNIGHT EVENTS: anxious SUBJECTIVE: [...] wwp LABS: reviewed and are available in [facility] (if new data) IMAGING: VASCULAR: [...] [place] | | | | | | [address] | | | | | | [phone] | | | | | | | | +--------+ + + + + | 06/27/ | Telephone-S | Pre-operative | | | | 2018 | cheduled | Medicine | | | +--------+ + + + + | 06/30/ | Office | Cardiology | Randell Franks, | | | 2019 | Visit | | [address] | | | | | | [place], [place] | | | | | | [address] | | | | | | [phone] | | | | | | | [...] Mae | | | | | | [place] | | | | + + + [...] YAKOVAM | [address] | [place], [place] | | | JUSTINE DAWN OF CARE | [facility] | [address] | | | TESTS | | | [...] (H) | 60 - 99 mg/dL | [facility] [...] AMES | [address] | [place], [place] | | | L[place]PE[place] POINT OF CARE | [address] | [address] | | | TESTS | | | [...] [facility] | [address] | [place] [address] | | | SERVICES, CORE | PARK [...] | | | LABORATORY | | | CANADIAN | | | SERVICES, | | | [...] the MDRD equation recommended by the | [facility] | | National Kidney Disease Education [...] HOSPITAL LABORATORY | [address] | [place] [address] | | | LYDIA RANGEL | CLARENCE [...] [facility] | [address] | [place] [address] | | | SERVICES, [facility] [...] (H) | 60 - 99 mg/dL | [facility] [...] AMES | [address] | [place], [place] | | | JUSTINE DAWN OF CARE | [facility] | [address] | | | TESTS | | | [...] KWAKU | [address] | [place], [place] | | | JUSTINE DAWN OF JAKY | [address] | [address] | | | TESTS | | | [...] - KWAKU | [address] | [place], [place] | | | JUSTINE DAWN OF CARE | [facility] | [address] | | | TESTS | | | [...] (H) | 60 - 99 mg/dL | [facility] [...] AMES | [address] | [place], [place] | | | JUSTINE DAWN OF CARE | [facility] | [address] | | | TESTS | | | [...] KWAKU | [address] | [place], [place] | | | JUSTINE DAWN OF JAKY | [address] | [address] | | | TESTS | | | [...] [facility] | [address] | [place] [address] | | | SERVICES, CORE | PARK [...] | | | LABORATORY | | | CANADIAN | | | SERVICES, | | | [...] HOSPITAL LABORATORY | [address] | [place] [address] | | | SERVICES, CORE | PARK [...] + + | [facility] [employer] | [address] | [place] [address] | | | SERVICES, CORE | [address] | | | + + + [...] YAKOVAM | [address] | [place] | | | JUSTINE DAWN OF CARE | [address] | [address] | | | TESTS | | | [...] MARQUAM | [address] | [place] | | | JUSTINE DAWN OF CARE | [address] | [address] | | | TESTS | | | [...] AMES | [address] | [place] | | | JUSTINE DAWN OF CARE | [address] | [address] | | | TESTS | | | [...] MARQUAM | [address] | [place], [place] | | | JUSTINE DAWN OF CARE | [address] | [address] | | | TESTS | | | [...] - KWAKU | [address] | [place], [place] | | | [place] [facility] | [address] | [address] | | | TESTS | | | [...] [facility] | [address] | [place] [address] | | | SERVICES, CORE | PARK [...] | | | LABORATORY | | | CANADIAN | | | SERVICES, | | | [...] [facility] | [address] | [place] [address] | | | SERVICES, CORE | CLARENCE [...] [facility] | [address] | [place] [address] | | | SERVICES, CORE | PARK [...] KWAKU | [address] | [place], [place] | | | JUSTINE DAWN OF CARE | [address] | [address] | | | TESTS | | | [...] AMES | [address] | [place], [place] | | | JUSTINE DAWN OF JAKY | [address] | [address] | | | TESTS | | | [...] MARQUAM | [address] | [place] | | | L[place]PEZ POINT OF CARE | [address] | [address] | | | TESTS | | | [...] + | [facility] | [address] | [place] [address] | | | [place] | | | [...] [facility] | [address] | [place] [address] | | | SERVICES, CORE | CLARENCE [...] [facility] | [address] | [place] [address] | | | SERVICES, CORE | CLARENCE [...] KWAKU | [address] | [place], [place] | | | JUSTINE DAWN OF JAKY | [facility] | [address] | | | TESTS | | | [...] | | | LABORATORY | | | CANADIAN | | | SERVICES, | | | [...] [facility] | [address] | [place] [address] | | | SERVICES, CORE | PARK [...] HOSPITAL LABORATORY | [address] | [place] [address] | | | SERVICES, CORE | PARK [...] | + + + + + | [email or web address] | [address] | [place] [address] | | | SERVICES, CORE | CLARENCE [...] MARQUAM | [address] | [place], [place] | | | JUSTINE DAWN OF JAKY | [address] | [address] | | | TESTS | | | [...] YAKOVAM | [address] | [place], [place] | | | JUSTINE DAWN OF CARE | [facility] | [address] | | | TESTS | | | [...] AMES | [address] | [place], [place] | | | JUSTINE DAWN OF [facility] | [facility] | [address] | | | TESTS | | | [...] | + + + + + | [employer] | [address] | [place] [address] | | | SERVICES, CORE | [address] | | | + + + + + MAGNESIUM, PLASMA (11/08/2012 7:48 AM PDT) + +---------+ + + + | Component | Value | Ref Range | Performed | Pathologist | | | | | At | Signature | + +---------+ + + + | MAGNESIUM,P | 1.4 (L) | 1.8 - 2.5 mg/dL | [facility] | | | LASMA | | [...] [facility] | [address] | [place] [address] | | | SERVICES, CORE | PARK [...] | | | LABORATORY | | | CANADIAN | | | SERVICES, | | | [...] HOSPITAL LABORATORY | [address] | [place] [address] | | | SERVICES, CORE | CLARENCE [...] 92 | 60 - 99 mg/dL | [facility] [...] + + + | NKECHI AMES | [address] | [place], [place] | | | L[place]PEZ [facility] | [address] | [address] | | | TESTS | | | [...] [facility] | [address] | [place], [place] | | | JUSTINE DAWN OF CARE | [address] | [address] | | | TESTS | | | [...] Louise AMES | [address] | [place], [place] | | | L[facility]Z [facility] | [facility] | [address] | | | TESTS | | | [...] HOSPITAL LABORATORY | [address] | [place] [address] | | | SERVICES, CORE | [address] | | | + + + + + MAGNESIUM, PLASMA (11/07/2012 12:30 AM PDT) + +---------+ + + + | Component | Value | Ref Range | Performed | Pathologist | | | | | At | Signature | + +---------+ + + + | MAGNESIUM,P | 1.7 (L) | 1.8 - 2.5 mg/dL | [facility] | | | LASMA | | [...] [facility] | [address] [facility] | [place] [address] | | | SERVICES, CORE | CLARENCE [...] | | | LABORATORY | | | CANADIAN | | | SERVICES, | | | [...] the MDRD equation recommended by the | [facility] | | National Kidney Disease Education [...] HOSPITAL LABORATORY | [address] | [place] [address] | | | CLAIRE, LYDIA | [address] | | | + + + + + X-RAY PORTABLE CHEST 1 VIEW (11/06/2012 4:46 PM PDT) + + + + + + | Component | Value | Ref Range | Performed | Pathologist | | | | | At | Signature | + + + + + + | X-RAY | STUDY: RI CHEST 1 VIEW | | | | | PORTABLE | 11/06/12 16:46:00 | | | | | CHEST 1 | INDICATION: Right upper | | | | | VIEW | lobe opacity. | | | | | | COMPARISON: Earlier same | | | | | | day a STUDY: RI CHEST 1 | | | | | [...] + + + | X-RAY | STUDY: RI CHEST 1 VIEW | | | | [...] [facility] | [address] | [place] [address] | | | SERVICES, CORE | PARK [...] | | | LABORATORY | | | CANADIAN | | | SERVICES, | | | [...] [facility] | [address] [facility] | [place] [address] | | | CLAIRE, LYDIA | CLARENCE [...] HOSPITAL LABORATORY | [address] | [place] [address] | | | SERVICES, CORE | PARK [...] MARQUAM | [address] | [place], [place] | | | ABRAHAN DAWN | [facility] | [address] | | | TESTS | | | [...] KWAKU | [address] | [place], [place] | | | JUSTINE DAWN OF JAKY | [facility] | [address] | | | TESTS | | | [...] KWAKU | [address] | [place], [place] | | | JUSTINE DAWN OF [facility] | [address] | [address] | | | TESTS | | | [...] AMES | [address] | [place], [place] | | | JUSTINE DAWN OF CARE | [facility] | [address] | | | TESTS | | | [...] MARPATAM | [address] | [place], [place] | | | LÓPEZ POINT OF CARE | [address] | [address] | | | TESTS | | | | + + + + + GLUCOSE (ART), POC SOR (11/06/2012 11:08 AM PDT) + +---------+ + + + | Component | Value | Ref Range | Performed | Pathologist | | | | | At | Signature | + +---------+ + + + | GLUCOSE, | 122 (H) | 60 - 99 mg/dL | [facility] - | | | POC | | [...] KWAKU | [address] | [place], [place] | | | JUSTINE DAWN OF JAKY | [facility] | [address] | | | TESTS | | | [...] AMES | [address] | [place], [place] | | | JUSTINE DAWN OF CARE | [address] | [address] | | | TESTS | | | [...] MARQUAM | [address] | [place], [place] | | | JUSTINE DAWN OF CARE | [facility] | [address] | | | TESTS | | | [...] KWAKU | [address] | [place], [place] | | | JUSTINE DAWN OF CARE | [address] | [address] | | | TESTS | | | [...] KWAKU | [address] | [place], [place] | | | JUSTINE DAWN OF JAKY | [address] | [address] | | | TESTS | | | [...] KWAKU | [address] | [place], [place] | | | JUSTINE DAWN OF [facility] | [facility] | [address] | | | TESTS | | | [...] [facility] | [address] | [place] [address] | | | SERVICES, | [address] [...] MARQUAM | [address] | [place], [place] | | | LÓPEZ POINT OF CARE | [address] | [address] | | | TESTS | | | [...] [facility] | [address] | [place] [address] | | | SERVICES, | [address] [...] | + + + + + | [facility] | [address] | [place] [address] | | | SERVICES, | [address] [...] [facility] | [address] | [place] [address] | | | SERVICES, CORE | PARK [...] [facility] | [address] | [place] [address] | | | SERVICES, CORE | PARK [...] [facility] | [address] | [place] [address] | | | SERVICES, CORE | CLARENCE [...] [facility] | [address] [facility] | [place] [address] | | | SERVICES, CORE | CLARENCE [...] | | | LABORATORY | | | CANADIAN | | | SERVICES, | | | [...] [facility] | [address] | [place] [address] | | | SERVICES, CORE | PARK [...] view image for the detailed interpretation from [facility] results. | CARDIOLOGY | + + + + + + + + | Performing | Address | City/State/Zipcode | Phone Number | | Organization | | | | + + + + + | [facility] | [address] [facility] | [place], [place] | | | CARDIOLOGY | [address] | [address] | | + + + + + [...] [facility] | [address] | [place] [address] | | | SERVICES, CORE | CLARENCE [...] | + + + + + | [email or web address] | [address] | [place] [address] | | | SERVICES, CORE | [address] | | | + + + + + documented in this encounter Visit Diagnoses + + | Diagnosis | + + | Incarcerated ventral hernia Ventral hernia, unspecified, with obstruction | + + documented in this encounter
--- OUTSIDE RECORDS SUMMARY | ~2019-05-10 | XMS | Encounter Summary ---
Demographics + + + | Address | [address] | | | [place] [address] | + + + | Home Phone [...] + | Katalina Padilla | ECON | [address] | | | | | [place], [place] | | | | | [address] | | + + + + + | Ellie Vang | ECON | Unknown | | + + + + + Care Team Providers + +------+ + | Care Roastmaster Name | Role | Phone | + +------+ + | Fadi Goodrich DO | PCP | | + +------+ + Encounter Details +--------+ + + + + | Date | Type | Department | Care Team | Description | +--------+ + + + + | 07/06/ | Abstract | Digestive Health | Shereen Georges, | | | 2012 | | [facility] [address] | ACNP [address] | | | | | [address] | [place], [place] | | | | | Mailcode: [place] | [address] | | | | | for Health and | | | | | | [facility] | | | | | | [facility] [place] | | | | | | [address] | | | | | | | [...] | | | | | [place], [place] | | | | | | [address] | | | | | | [phone] | | | | | | | | +--------+ + + + + | 06/27/ | Telephone-S | Pre-operative | | | | 2019 | cheduled | Medicine | | | +--------+ + + + + | 06/30/ | Office | Cardiology | Randell Franks, | | | 2019 | Visit | [address] | | | | | | [place], [place] | | | | | | [address] | | | | | | [phone] | | | | | | | | +--------+ + + + + | 07/08/ | Procedure | Surgery | | | | 2019 | Pass | | | | +--------+ + + + + documented as of this encounter Visit Diagnoses Not on filedocumented in this encounter"
--- OUTSIDE RECORDS SUMMARY | ~2019-05-10 | XMS | Encounter Summary ---
Demographics + + + | Address | [address] | | | [place] [address] | + + + | Home Phone [...] [place], [place] | | | | | [address] | | + + + + + | Ellie Vang | ECON | Unknown | | + + + + + Care Team Providers + +------+ + | Care Paper Bag Making Machinist Name | Role | Phone | + +------+ + | Fadi Goodrich DO | PCP | | + +------+ + Encounter Details +--------+ + + + + | Date | Type | Department | Care Team | Description | +--------+ + + + + | 03/04/ | Telephone | Digestive Health | Ion Pandey, | | | 2018 | | [place] [facility] [address] | MD [address] | | | | | [address] | [place], [place] | | | | | Mailcode: [place] | [address] | | | | | for Health and | | | | | | [facility] | | | | | | [facility] [place] | | | | | | [address] | | | | | | | [...] | | 2019 | Visit | | [address] | | | | | | [place], [place] | | | | | | [address] | | | | | | [phone] | | | | | | | [...] | | | | | [place], [place] | | | | | | [address] | | | | | | [phone] | | | | | | | | +--------+ + + + + | 07/08/ | Procedure | Surgery | | | | 2018 | Pass | | | | +--------+ + + + + documented as of this encounter Visit Diagnoses Not on filedocumented in this encounter"
--- OUTSIDE RECORDS SUMMARY | ~2019-05-10 | XMS | Encounter Summary ---
Demographics + + + | Address | [address] | | | [place] [address] | + + + | Home Phone [...] [place], [place] | | | | | [address] | | + + + + + | Ellie Vang | ECON | Unknown | | + + + + + Care Team Providers + +------+ + | Care Retail Event Assistant Name | Role | Phone | [...] | | | | | | [place] [address] | | | +--------+ + + + [...] [address] | | | | | | [place], [place] | | | | | | [address] | | | | | | [phone] | | | | | | | [...] | | | | | [place], [place] | | | | | | [address] | | | | | | [phone] | | | | | | | | +--------+ + + + + | 07/08/ | Procedure | Surgery | | | | 2019 | Pass | | | | +--------+ + + + + documented as of this encounter Visit Diagnoses Not on filedocumented in this encounter"
--- OUTSIDE RECORDS SUMMARY | ~2019-05-10 | XMS | Encounter Summary ---
Demographics + + + | Address | [address] | | | [place] [address] | + + + | Home Phone [...] [place], [place] | | | | | [address] | | + + + + + | Ellie Vang | ECON | Unknown | | + + + + + Care Team Providers + +------+ + | Care Hearing Screener Name | Role | Phone | [...] | | [address] | [place], [place] | | | | | Mailcode: [place] | [address] | | | | | [facility] and | | | | | | [facility] | | | | | | [place], [place] | | | | | | [address] | | | | | | | [...] [address] | | | | | | [place], [place] | | | | | | [address] | | | | | | [phone] | | | | | | | | +--------+ + + + + | 06/27/ | Telephone-S | Pre-operative | | | | 2018 | cheduled | Medicine | | | +--------+ + + + + | 06/30/ | Office | Cardiology | Randell Franks, | | | 2018 | Visit | | [address] | | | | | | [place], [place] | | | | | | [address] | | | | | | [phone] | | | | | | | | +--------+ + + + + | 07/08/ | Procedure | Surgery | | | | 2018 | Pass | | | | +--------+ + + + + documented as of this encounter Visit Diagnoses Not on filedocumented in this encounter"
--- OUTSIDE RECORDS SUMMARY | ~2019-05-10 | XMS | Encounter Summary ---
Demographics + + + | Address | [address] | | | [place] [address] | + + + | Home Phone [...] [place], [place] | | | | | [address] | | + + + + + | Ellie Vang | ECON | Unknown | | + + + + + Care Team Providers + +------+ + | Care Judge'S Clerk Name | Role | Phone | [...] Medical Records | | 2018 | | [place] [address] | [address] | Review | | | | Ave Mailcode: CH4S | [place], [place] | | | | | [facility] | [address] | | | | | and [place], | [phone] | | | | | [place] [address] | | | | | | Floor [place], [place] | | | | | | [address] | | | | | | [phone] | | | +--------+ + + + [...] Flannery | | | | | | [place], [place] | | | | | | [address] | | | | | | [phone] | | | | | | | [...] | | | | | [place] [place], [place] | | | | | | [address] | | | | | | [phone] | | | | | | | | +--------+ + + + + | 07/08/ | Procedure | Surgery | | | | 2019 | Pass | | | | +--------+ + + + + documented as of this encounter Visit Diagnoses Not on filedocumented in this encounter"
--- OUTSIDE RECORDS SUMMARY | ~2019-05-10 | XMS | Encounter Summary ---
Demographics + + + | Address | [address] | | | [place] [address] | + + + | Home Phone [...] [place], [place] | | | | | [address] | | + + + + + | Ellie Vang | ECON | Unknown | | + + + + + Care Team Providers + +------+ + | Care Sales Administration Manager Name | Role | Phone | [...] 2017 | | Preventive at [facility] | MD [address] | | | | | [address] | Ave [place], [place] | | | | | Mailcode: CH9A | [address] | | | | | [facility] | [phone] | | | | | and [facility], | | | | | | Building [address] | | | | | | [place], [place] | | | | | | [address] | | | | | | [phone] | | | +--------+ + + + [...] Flannery | | | | | | [place], [place] | | | | | | [address] | | | | | | [phone] | | | | | | | [...] | | | | | [place], [place] | | | | | | [address] | | | | | | [phone] | | | | | | | | +--------+ + + + + | 07/08/ | Procedure | Surgery | | | | 2018 | Pass | | | | +--------+ + + + + documented as of this encounter Visit Diagnoses Not on filedocumented in this encounter"
--- OUTSIDE RECORDS SUMMARY | ~2019-05-10 | XMS | Encounter Summary ---
Demographics + + + | Address | [address] | | | [place] [address] | + + + | Home Phone [...] [place], [place] | | | | | [address] | | + + + + + | Ellie Vang | ECON | Unknown | | + + + + + Care Team Providers + +------+ + | Care Preload Supervisor Name | Role | Phone | [...] | | | | | (HCC) | [place], [place] | Mailcode: | | | | | Procedures | [address] | [address] [facility] | | | | | CT ABDOMEN & | Phone: | Hospital | | | | | PELVIS WWO | | [place], [place] | | | | | IV CONTRAST | Fax: | [address] | | | | | [place] | [phone] | Phone: | | | | | ABDOMEN&PELV | | [phone] | | | | | IS | | Fax: | | | | | W/CONTRAST | | [phone] | | | | | See chart [...] | 2015 | Encounter | Lab at [facility] [address] | | | | | | [place]on Flann[place] Mailcode: | | | | | | CH3G [facility] | | | | | | Health and Healing, | | | | | | [place] [address], [facility] | | | | | | Floor [place], [place] | | | | | | [address] | | | | | | [phone] | | | +--------+ + + + [...] +---------+--------+ + documented as of this encounter Simrna Gudino - 10/12/2014 9:08 AM PDTElectronically signed [...] 2018 | Visit | | [address] | | | | | | [place], [place] | | | | | | [address] | | | | | | [phone] | | | | | | | | +--------+ + + + + | 06/27/ | Telephone-S | Pre-operative | | | | 2018 | cheduled | Medicine | | | +--------+ + + + + | 06/30/ | Office | Cardiology | Randell Franks, | | | 2019 | Visit | | [address] | | | | | | [place], [place] | | | | | | [address] | | | | | | [phone] | | | | | | | [...] | [facility] | [address] [facility] | [place] [address] | | | OF CARE TESTS | | | | + + + + + documented in this encounter Visit Diagnoses + + | Diagnosis | + + | Abdominal pain | + + | Morbid obesity (HCC) Morbid obesity | + + documented in this encounter"
--- OUTSIDE RECORDS SUMMARY | ~2019-05-10 | XMS | Encounter Summary ---
Demographics + + + | Address | [address] | | | [place] [address] | + + + | Home Phone [...] | [facility] Hernandez | | | and Jeffana | + + + | Organization | [facility] Hernandez [...] Providers + +------+ + | Care Take Away Worker Name | Role | Phone | + +------+ + | Kenyatta Cardenas MD | PCP | | + +------+ + Encounter Details +--------+ + + + + | Date | Type | Department | Care Team | Description | +--------+ + + + + | 02/17/ | Orders Only | [facility] | Provider, | Pure | | 2018 | | SYSTEM GENERIC OP | MD [address] | hyperglyceridemia; | | | | CONVERSION [address] | [address] | Hypokalemia; | | | | [address] [place], [place] | [place] [address] | Dehydration; | | | | [address] | | Hyperuricemia | | | | [phone] | | without signs of | | [...]
--- OUTSIDE RECORDS SUMMARY | ~2019-05-10 | XMS | Encounter Summary ---
Demographics + + + | Address | [address] | | | [place] [address] | + + + | Home Phone [...] [place], [place] | | | | | [address] | | + + + + + | Ellie Vang | ECON | Unknown | | + + + + + Care Team Providers + +------+ + | Care Health Services Information Specialist Name | Role | Phone [...] Diabetes & | Morbid | Kathy M, PEOPLESOFT ADMINISTRATOR | [address] | | | | Metabolism | obesity | [address] | [address] | | | | | (HCC) | [address], | [address] | | | | | Procedures | [address] | Physician's | | | | | CONSULT TO | [place], [place] | [place] | | | | | ENDO | [address] | Physician's | | | | | [address] | Phone: | Pavilion | | | | | [address] | [phone] | [place], [place] | | | | | | Fax: | [address] | | | | | | [phone] | Phone: | | | | | | | [phone] | | | | | | | Fax: | | | | | | | [phone] | +--------+--------+ + + + + Encounter [...] | | Center at Physicians | Ave [place], [place] | ([facility]) (Primary Dx); | | | | Pav[address] | [address] | Type 2 diabetes | | | | [address] | [phone] | mellitus ([facility]); AMARA | | | | Physician's | | (obstructive sleep | | | | Pavilion | | apnea); Morbid | | | | Physician's Pavilion | | obesity ([facility]); | | | | [place], [place] | | Edema; GERD | | | | [address] | | (gastroesophageal | | | | [phone] | | reflux disease) | +--------+---------+ + [...] Goodrich DO Referring physician: Kathy Feldman, KALYAN [address] [place] [address] HPI: Dylan is a 38 y.o. female [...] 9 CREATININE PLASMA (LAB) 0.71 EGFR - DJIBOUTIAN >60 EGFR NON -DJIBOUTIAN >60 GLUCOSE, PLASMA (LAB) 113 (H) CALCIUM, [...] Flannery | | | | | | [place], [place] | | | | | | [address] | | | | | | [phone] | | | | | | | [...] [place] | | | | | | [address] | | | | | | [phone] | | | | | | | [...] | | | PDT | type 2) ([facility]) | results section. | + +--------+ + + + | NE COLLECTION | Routin | 04/14/2013 | DM type 2 | | | CAPILLARY BLOOD | e | 11:08 AM | (diabetes mellitus, | | | SPECIMEN | | PDT | type 2) ([facility]) | | + +--------+ + + [...] + + + + + | KALEYORIN Louise LANEYKAMILLA | [address] | [place], [place] | | | JUSTINE DAWN OF [facility] | [facility] | [address] | | | TESTS | | | [...]
--- OUTSIDE RECORDS SUMMARY | ~2019-05-10 | XMS | Encounter Summary ---
Demographics + + + | Address | [address] | | | [place] [address] | + + + | Home Phone [...] [place], [place] | | | | | [address] | | + + + + + | Ellie Vang | ECON | Unknown | | + + + + + Care Team Providers + +------+ + | Care Nuisance Wildlife Trapper Name | Role | Phone | + [...] | | | | and over, | [place], [place] | [facility] | | | | | adult (HCC) | [address] | for Health | | | | | Severe | Phone: | and Healing, | | | | | muscle | | Building 1, | | | | | deconditioni | Fax: | [address] Floor | | | | | ng | [phone] | [place], [place] | | | | | Procedures | | [address] | | | | | PHYSICAL | | Phone: | | | | | THERAPY | | [phone] | | | | | REFERRAL | | Fax: | | | | | | | [phone] | +--------+--------+ + + + + Encounter Details +--------+ + + + + | Date | Type | Department | Care Team | Description | +--------+ + + + + | 02/02/ | Machine I Coremaker | Digestive Health | Shereen Georges, | Morbid obesity with | | 2017 | | Center at [facility] [address] | ACNP [address] | BMI of 70 and over, | | | | [address] | Ave [facility] [place] | adult (HCC) (Primary | | | | Mailcode: Center | [address] | Dx); Severe muscle | | | | for Health and | | deconditioning | | | | Healing, [address] | | | | | | [place], [place] | | | | | | [address] | | | | | | | [...] Flannery | | | | | | [place], [place] | | | | | | [address] | | | | | | [phone] | | | | | | | [...] | | | | | [place], [place] | | | | | | [address] | | | | | | [phone] | | | | | | | [...]
--- OUTSIDE RECORDS SUMMARY | ~2019-05-10 | XMS | Encounter Summary ---
Demographics + + + | Address | [address] | | | [place] [address] | + + + | Home Phone [...] [place], [place] | | | | | [address] | | + + + + + | Ellie Vang | ECON | Unknown | | + + + + + Care Team Providers + +------+ + | Care Solar Energy Installation Manager Name | Role | Phone | [...] Lesly | | | | | Mailcode: [place] | [place], [place] | | | | | [facility] and | [address] | | | | | [facility] 2 | [phone] | | | | | [place], [place] | | | | | | [address] | | | | | | [phone] | | | +--------+ + + + [...] Flannery | | | | | | [place], [place] | | | | | | [address] | | | | | | [phone] | | | | | | | [...] | | | | | [place], [place] | | | | | | [address] | | | | | | [phone] | | | | | | | | +--------+ + + + + | 07/08/ | Procedure | Surgery | | | | 2018 | Pass | | | | +--------+ + + + + documented as of this encounter Visit Diagnoses Not on filedocumented in this encounter"
--- OUTSIDE RECORDS SUMMARY | ~2019-05-10 | XMS | Encounter Summary ---
Demographics + + + | Address | [address] | | | [place] [address] | + + + | Home Phone [...] [place], [place] | | | | | [address] | | + + + + + | Ellie Vang | ECON | Unknown | | + + + + + Care Team Providers + +------+ + | Care Scudding Inspector Name | Role | Phone | + +------+ + | Fadi Goodrich DO | PCP | | + +------+ + Encounter Details +--------+ + + + + | Date | Type | Department | Care Team | Description | +--------+ + + + + | 03/04/ | Telephone | Digestive Health | Ion Pandey, | | | 2018 | | [facility] at [facility] [address] | MD [address] | | | | | [address] | [place], [place] | | | | | Mailcode: Geary | [address] | | | | | for Health and | | | | | | [facility] 2 | | | | | | [facility] [place] | | | | | | [address] | | | | | | | [...] | | 2019 | Visit | | [address] | | | | | | [place], [place] | | | | | | [address] | | | | | | [phone] | | | | | | | [...] [place] | | | | | | [address] | | | | | | [phone] | | | | | | | | +--------+ + + + + | 07/08/ | Procedure | Surgery | | | | 2018 | Pass | | | | +--------+ + + + + documented as of this encounter Visit Diagnoses Not on filedocumented in this encounter"
--- OUTSIDE RECORDS SUMMARY | ~2019-05-10 | XMS | Encounter Summary ---
Demographics + + + | Address | [address] | | | [place] [address] | + + + | Home Phone [...] [place], [place] | | | | | [address] | | + + + + + | Ellie Vang | ECON | Unknown | | + + + + + Care Team Providers + +------+ + | Care Billing Clinician Name | Role | Phone | + +------+ + | Fadi Goodrich DO | PCP | | + +------+ + Encounter Details +--------+ + + + + | Date | Type | Department | Care Team | Description | +--------+ + + + + | 06/09/ | Abstract | Cardiology | Randell Franks, | | | 2015 | | Preventive at [facility] | MD [address] | | | | | [address] | Ave [place], [place] | | | | | Mailcode: CH9A | [address] | | | | | [facility] | [phone] | | | | | and Healing, | | | | | | [address] | | | | | | [place], [place] | | | | | | [address] | | | | | | [phone] | | | +--------+ + + + [...] Flannery | | | | | | [place], [place] | | | | | | [address] | | | | | | [phone] | | | | | | | [...] | | | | | [place], [place] | | | | | | [address] | | | | | | [phone] | | | | | | | | +--------+ + + + + | 07/08/ | Procedure | Surgery | | | | 2019 | Pass | | | | +--------+ + + + + documented as of this encounter Visit Diagnoses Not on filedocumented in this encounter"
--- OUTSIDE RECORDS SUMMARY | ~2019-05-10 | XMS | Encounter Summary ---
Demographics + + + | Address | [address] | | | [place] [address] | + + + | Home Phone [...] [place], [place] | | | | | [address] | | + + + + + | Ellie Vang | ECON | Unknown | | + + + + + Care Team Providers + +------+ + | Care Driver/Guide Name | Role | Phone | + [...] | | | | | Procedures | [place], [place] | | | | | | TRANSTHORACI | [address] | | | | | | C | Phone: | | | | | | ECHOCARDIOGR | [phone] | | | | | | AM, ADULT | Fax: | | | | | | | [phone] | | +--------+--------+ + + + + [...] | [address] | [place], [place] | Dx) | | | | Mailcode: CH9A | [address] | | | | | [facility] | [phone] | | | | | and [address], | | | | | | [address] | | | | | | [place], [place] | | | | | | [address] | | | | | | [phone] | | | +--------+---------+ + + + [...] 500 mg by mouth once daily. CALCIUM CRB&NSV-Q5-NCU39-GENIS ORAL Take 1 tablet by mouth two [...] himself to the local hospit al in [place] and so this has been delayed. ROS: [...] to lose the additional weight requested by [facility]. This current weight [...] Flannery | | | | | | [place], [place] | | | | | | [address] | | | | | | [phone] | | | | | | | [...] | | | | | [place], [place] | | | | | | [address] | | | | | | [phone] | | | | | | | [...]
--- OUTSIDE RECORDS SUMMARY | ~2019-05-10 | XMS | Clinical Summary ---
Demographics + + + | Address | [address] | | | [place] [address] | + + + | Home Phone | | + + + | Preferred Language | Unknown | + + + | Marital Status | | + + + | Amish Affiliation | Unknown | + + + | Race | Unknown | + + + | Ethnic Group | Unknown | + + + Author + + + | Author | [facility] (Historical as of | | | 03-12-19) | + + + | Organization | [facility] (Historical as of | | | 03-12-19) [...] Team Providers + +------+ + | Care Election Judge Name | Role | Phone | + [...] | | | Activ | | (DRISDOL) [id number] | mouth twice a week. | | [...] | obesity, she is enrolled in the [facility] b[facility]ric program. She has | | lost [...] Recent | | admission to [facility] for 100lb weight | | gain- DC on diuresis on 03/06/2016- she feel improvedShe was on | | Metolazone and Torsemide prior to hospitalization- both have | | better bioavailability than lasix in gut edema but she retained | | 100lbs - how ever she is currently on only Torsemide 100mg Q12hrs | | started in [place] and her weight been stable sinceShe has no | | other complaints.She is pending to see NephrologistCiriloo | | 02/16/2016([facility])- Normal LV systolic function, mildly | | [...] Romero Date of : 1975 | [facility] | | Performing Physician: Darryl [...] MV A Jeffrey: 0.61 m/s MV Dec Peach: 2.43 m/s2 | | | MV DecT: 247.51 ms MV E Jeffrey: 0.60 m/s MV E/A Ratio: | | | 0.98 MV PHT: 71.78 ms MVA By PHT: 3.06 cm2 Septal e': | | | 0.06 m/s Septal E/e': 9.54 Lateral e': 0.10 m/s Lateral | | | E/e': 5.84 RAP: 5 mmHg RV s': 0.11 m/s Scenic Arts Supervisor: | | | DH Authenticated by: Darryl [facility] Report Date/Time: 02-22-2019 | | | 20:8:36 | | + + + + --------+ | Procedure Note | + --------+ | Aditya, Rad Results In - 02/22/2019 8:10 PM PDT Patient Name: Sherrell Romero | | : 1975Accession: [id number] Physician: Darryl | | Alsamara INDICATIONS------ | [...] cmLVIDd: 4.70 cmLVPWd: 0.79 cmLVOT Area: 3.58 [id number] Diam: 2.13 | | cm%FS: 39.25 %EF(Teich): [...] mlLAESV Index (A-L): 14.72 ml/m2LAAs A2C: 10.03 gq5LKHRV A-L A2C: 22.69 | | mlLALs A2C: 3.76 cmLAAs A4C: 13.41 xz7VRPKJ A-L A4C: 36.80 mlLALs A4C: 4.14 | | cmRAAs: 11.18 sw9EBPTF A-L: 22.84 mlRAESV MOD: 22.10 mlRALs: 4.64 cmTAPSE: | | 2.04 cmAV maxP.55 mmHgAV meanP.52 mmHgAV Vmax: 1.27 m/Genesis Vmean: 0.88 | | m/Genesis VTI: 26.50 cmAVA Vmax: 2.49 cm2AVA (VTI): 2.39 jj6YTHS Vmax: 0.00 | | cm2/m2AVAI (VTI): 0.00 cm2/m2LVOT maxP.17 mmHgLVOT meanP.82 mmHgLVSI Dopp: | | 30.83 ml/m2LVSV Dopp: 63.52 mlLVOT Vmax: 0.89 m/sLVOT Vmean: 0.65 m/sLVOT VTI: | | 17.71 cmMV A Jeffrey: 0.61 m/sMV Dec Peach: 2.43 m/s2MV DecT: 247.51 msMV E Jeffrey: | | 0.60 m/sMV E/A Ratio: 0.98 MV PHT: 71.78 msMVA By PHT: 3.06 zs2Nyinzj e': 0.06 | | m/sSeptal E/e': 9.54 Lateral e': 0.10 m/sLateral E/e': 5.84 RAP: 5 mmHgRV s': | | 0.11 m/sSonographer: DHAuthenticated by: Darryl [facility] Date/Time: 02-22-2019 | | 20:8:36IMPRESSION:1. Overall [...] A Jeffrey: 0.61 m/s | |MV Dec Peach: 2.43 m/s2 | |MV DecT: 247.51 ms | |MV E Jeffrey: 0.60 m/s | |MV E/A Ratio: 0.98 | |MV PHT: 71.78 ms | |MVA By PHT: 3.06 cm2 | |Septal e': 0.06 m/s | |Septal E/e': 9.54 | |Lateral e': 0.10 m/s | |Lateral E/e': 5.84 | |RAP: 5 mmHg | |RV s': 0.11 m/s | | | |Scenic Arts Supervisor: | |Authenticated by: Darryl Merrill | |Report [...] [facility] | [address] | [place] [address] | | + + + + + [...] +------+-------+ + | MEDICAID | [place] | [id number] | | | [address] | | | [place] | | | | [place] | | | [place] | | | | [address] | | | [employer] | | | | | + +--------+ [...] | mireya | | | [address] | [address] | + +--------+ +--------+ + +
--- OUTSIDE RECORDS SUMMARY | ~2019-05-10 | XMS | Encounter Summary ---
Demographics + + + | Address | [address] | | | [place] [address] | + + + | Home Phone [...] + | Katalina Padilla | ECON | [address] | | | | | [place], [place] | | | | | [address] | | + + + + + | Ellie Vang | ECON | Unknown | | + + + + + Care Team Providers + +------+ + | Care Rail Grinder Name | Role | Phone | [...] | | | Procedures | | [address], | | | | | [place] MNT | | [place] | | | | | INITIAL | | [address] | | | | | ASSESSMNT | | | | | | | X15MIN MA | | | | | | [...] | 2012 | Visit | Center at [facility] [address] | [address] | mellitus (HCC) | | | | [address] | [address] | (Primary Dx); Morbid | | | | Mailcode: Center | [place], [place] | obesity (HCC) | | | | for Health and | [address] | | | | | Healing, [place] [address] | | | | | | [place], [place] | | | | | | [address] | | | | | | [phone] | | | +--------+---------+ + + + [...] PDTNutrition appointment, -try keeping food logs online: -www.[employer] -[employer] -Aim for 6040-6624 calories a day -Increase physical activity -try [...] appropriate portions. Denies any binge eating. Weight acid changer the past year: > 100 lb [...] see an RD for 2 years in [place] but insurance quit paying for it. Up [...] 1000/d--a more appropriate long-term range would be 5290-8786/day. Inadequat e calcium intake; did not address [...] w/ meals & snacks 2. Aim for 8201-4851 kcal/d 3. Keep food logs (at least [...] needed. Olga Lidia Montanez RD, LD Pager [phone] documented in this en counter Plan of Treatment +--------+ + + + + | Date | Type | Specialty | Care Team | Description | +--------+ + + + + | 05/13/ | Office | Plastic Surgery | Archie Ybarra MD | | | 2018 | Visit | | [address] | | | | | | [place], [place] | | | | | | [address] | | | | | | [phone] | | | | | | | [...] | | | | | [place], [place] | | | | | | [address] | | | | | | [phone] | | | | | | | [...] +--------+ + + + | MA MNT INITIAL | Routin | 04/14/2013 | [...]
--- OUTSIDE RECORDS SUMMARY | ~2019-05-10 | XMS | Encounter Summary ---
Demographics + + + | Address | [address] | | | [place] [address] | + + + | Home Phone [...] + | Katalina Padilla | ECON | [address] | | | | | [place], [place] | | | | | [address] | | + + + + + | Ellie Vang | ECON | Unknown | | + + + + + Care Team Providers + +------+ + | Care Loom Changeover Operator Name | Role | Phone | [...] [facility] | MD [address] | | | | | [address] | [place], [place] | | | | | Mailcode: [facility] | [address] | | | | | [facility] | [phone] | | | | | and [address], | | | | | | [address] | | | | | | [place], [place] | | | | | | [address] | | | | | | [phone] | | | +--------+ + + + [...] Flannery | | | | | | [place], [place] | | | | | | [address] | | | | | | [phone] | | | | | | | [...] | | | | | [place], [place] | | | | | | [address] | | | | | | [phone] | | | | | | | | +--------+ + + + + | 07/08/ | Procedure | Surgery | | | | 2018 | Pass | | | | +--------+ + + + + documented as of this encounter Visit Diagnoses Not on filedocumented in this encounter"
--- OUTSIDE RECORDS SUMMARY | ~2019-05-10 | XMS | Encounter Summary ---
Demographics + + + | Address | [address] | | | [place] [address] | + + + | Home Phone [...] [place], [place] | | | | | [address] | | + + + + + | Ellie Vang | ECON | Unknown | | + + + + + Care Team Providers + +------+ + | Care Farmer [employer] Name | Role | Phone | + [...] | 2017 | Event | [facility] | MD Jodie,PhD 9882 | | | | | Admitting Desk | [address] | | | | | Located on the 9 | [facility] [place] | | | | | floor [address] | [address] | | | | | [address] | [phone] | | | | | [place], [place] | | | | | | [address] | Jason Balbuena | | | | | | MD Twin [address] | | | | | | [address] | | | | | | [place], [place] | | | | | | [address] | | | | | | [phone] | | | | | | | [...] [place] | | | | | | [address] | | | | | | [phone] | | | | | | | [...] | | | | | [place], [place] | | | | | | [address] | | | | | | [phone] | | | | | | | [...]
--- OUTSIDE RECORDS SUMMARY | ~2019-05-10 | XMS | Encounter Summary ---
Demographics + + + | Address | [address] | | | [place] [address] | + + + | Home Phone [...] [place], [place] | | | | | [address] | | + + + + + | Ellie Vang | ECON | Unknown | | + + + + + Care Team Providers + +------+ + | Care Manager Car Name | Role | Phone | + +------+ + | Fadi Goodrich DO | PCP | | + +------+ + Encounter Details +--------+ + + + + | Date | Type | Department | Care Team | Description | +--------+ + + + + | 12/05/ | Abstract | Cardiology | Randell Franks, | | | 2016 | | Preventive at [facility] | MD [address] | | | | | [address] | Ave [place], [place] | | | | | Mailcode: CH9A | [address] | | | | | [facility] | [phone] | | | | | and Healing, | | | | | | [address] | | | | | | [place], [place] | | | | | | [address] | | | | | | [phone] | | | +--------+ + + + [...] [place] | | | | | | [address] | | | | | | [phone] | | | | | | | [...] | | | | | [place], [place] | | | | | | [address] | | | | | | [phone] | | | | | | | | +--------+ + + + + | 07/08/ | Procedure | Surgery | | | | 2019 | Pass | | | | +--------+ + + + + documented as of this encounter Visit Diagnoses Not on filedocumented in this encounter"
--- OUTSIDE RECORDS SUMMARY | ~2019-05-10 | XMS | Encounter Summary ---
Demographics + + + | Address | [address] | | | [place] [address] | + + + | Home Phone [...] [place], [place] | | | | | [address] | | + + + + + | Ellie Vang | ECON | Unknown | | + + + + + Care Team Providers + +------+ + | Care Gardener Name | Role | Phone | + [...] | | [facility] | MD [address] | | | | | [address] | [address] [place], [place] | | | | | Mailcode: [facility] | [address] | | | | | [facility] | [phone] | | | | | and Healing, | | | | | | [address] | | | | | | [facility] [place] | | | | | | [address] | | | | | | [phone] | | | +--------+ + + + [...] [place] | | | | | | [address] | | | | | | [phone] | | | | | | | [...] [place] | | | | | | [address] | | | | | | [phone] | | | | | | | | +--------+ + + + + | 07/08/ | Procedure | Surgery | | | | 2019 | Pass | | | | +--------+ + + + + documented as of this encounter Visit Diagnoses Not on filedocumented in this encounter"
--- OUTSIDE RECORDS SUMMARY | ~2019-05-10 | XMS | Encounter Summary ---
Demographics + + + | Address | [address] | | | [place] [address] | + + + | Home Phone [...] [place], [place] | | | | | [address] | | + + + + + | Ellie Vang | ECON | Unknown | | + + + + + Care Team Providers + +------+ + | Care Concrete Hopper Operator Name | Role | Phone | [...] | | | | | [address] | | | | | | [place] | | | | | | [place] [address] | | | +--------+ + + + [...] 2018 | Visit | | [address] | | | | | | [place], [place] | | | | | | [address] | | | | | | [phone] | | | | | | | [...] | | | | | [place], [place] | | | | | | [address] | | | | | | [phone] | | | | | | | | +--------+ + + + + | 07/08/ | Procedure | Surgery | | | | 2018 | Pass | | | | +--------+ + + + + documented as of this encounter Visit Diagnoses Not on filedocumented in this encounter"
--- OUTSIDE RECORDS SUMMARY | ~2019-05-10 | XMS | Encounter Summary ---
Demographics + + + | Address | [address] | | | [place] [address] | + + + | Home Phone [...] [place], [place] | | | | | [address] | | + + + + + | Ellie Vang | ECON | Unknown | | + + + + + Care Team Providers + +------+ + | Care Raisin Separator Operator Name | Role | Phone | + +------+ + | Fadi Goodrich DO | PCP | | + +------+ + Encounter Details +--------+ + + + + | Date | Type | Department | Care Team | Description | +--------+ + + + + | 02/09/ | Abstract | [facility] | Clinic, Surgery | | | 2016 | | [place] [address] [address] | | | | | | [address] | | | | | | Mailcode: [place] | | | | | | [facility] and | | | | | | [facility] | | | | | | [place], [place] | | | | | | [address] | | | | | | [phone] | | | +--------+ + + + [...] [place] | | | | | | [address] | | | | | | [phone] | | | | | | | | +--------+ + + + + | 06/27/ | Telephone-S | Pre-operative | | | | 2019 | cheduled | Medicine | | | +--------+ + + + + | 06/30/ | Office | Cardiology | Randell Franks, | | | 2018 | Visit | | [address] | | | | | | [place], [place] | | | | | | [address] | | | | | | [phone] | | | | | | | | +--------+ + + + + | 07/08/ | Procedure | Surgery | | | | 2018 | Pass | | | | +--------+ + + + + documented as of this encounter Visit Diagnoses Not on filedocumented in this encounter"
--- OUTSIDE RECORDS SUMMARY | ~2019-05-10 | XMS | Encounter Summary ---
Demographics + + + | Address | [address] | | | [place] [address] | + + + | Home Phone [...] [place], [place] | | | | | [address] | | + + + + + | Ellie Vang | ECON | Unknown | | + + + + + Care Team Providers + +------+ + | Care Glove Finisher Name | Role | Phone | [...] + + | 02/07/ | Hospital | [address] | Milana [place], | | | 2014 - | Encounter | [address] | [address] | | | | | [place], [place] | [address] | | | 02/08/ | | [address] | [place], [place] | | | 2013 | | [phone] | [address] | | | | | | [phone] | | | | | | | [...] the resident s note. PRADIP STARR MD [facility] [address] [facility] [place] [address] orrMaryam hill MD - 1:05 PM PDT [facility] DEPARTMENT OF SURGERY EMERGENCY GENERAL [...] 2 DM who presented to the [facility] ED ([place], [place]) on 02/06/14, with a week hi story of RUQ abdominal pain that radiates to her back. There, she was found to have leukocyt osis and multiple tiny, mobile stones, + sonographic Peterson's sign on abdominal ultrasound, concerning for acute cholecystitis. She was givenIV antibiotics (cipro, flagyl) and pain med s, then transferred to [facility] by [facility] for further care. Ms. Romero endorsed [...] up with Trauma Emergency General Surgery at [facility] In 4 weeks. (follow up in 2-4 weeks ) Contact information [address] Mailcode: L223a Lionelyiarmen [address] [place] [address] Thank you for the opportunity to take care of DYLAN ROMERO during this inpatient stay, it has been our pleasure. Please call with any questions, . Discharging Provider: MARYAM RHODES MD PGY-1, General Surgery Attending Physician: Milana Landaevrde MD documented in this encoun ter Discharge [...] the resident s note. PRADIP STARR MD [facility] [address] [facility] [place] [address] orrMaryam hill MD - 5:17 AM PDT [facility] DEPARTMENT OF SURGERY EMERGENCY GENERAL SURGERY Division [...] tolerated MARYAM RHODES MD PGY-1, General Surgery 10375 pager number [facility] [place] A [address] [place] [facility] [place] [address] documented in this encoun ter Plan of Treatment +--------+ + + + + | Date | Type | Specialty | Care Team | Description | +--------+ + + + + | 05/13/ | Office | Plastic Surgery | Archie Ybarra MD | | | 2018 | Visit | | [address] | | | | | | [place] | | | | | | [address] | | | | | | [phone] | | | | | | | [...] | | | | | [place], [place] | | | | | | [address] | | | | | | [phone] | | | | | | | [...] - MARQU[place] | [address] | [place], [place] | | | JUSTINE DAWN OF CARE | [address] | [address] | | | TESTS | | | [...] + + + | NKECHI AMES | [address] | [place], [place] | | | [place] [facility] [facility] | [address] | [address] | | | TESTS | | | [...] MARQUAM | [address] | [place], [place] | | | JUSTINE DAWN OF JAKY | [address] | [address] | | | TESTS | | | [...] - Y[place] | [address] | [place], [place] | | | [place] POINT OF CARE | [address] | [address] | | | TESTS | | | [...] [facility] | [address] | [place] [address] | | | SERVICES, | [address] [...] [facility] | [address] | [place] [address] | | | SERVICES, | [address] [...] - [place] | [address] | [place], [place] | | | L[place]PE[place] POINT OF CARE | [address] | [address] | | | TESTS | | | [...] [facility] | [address] | [place] [address] | | | SERVICES, CORE | [address] [...] | + + + + + | [facility] | [address] | [place] [address] | | | SERVICES, CORE | PARK [...] | + + + + + | [facility] | [address] [facility] | [place] [address] | | | CLAIRE, LYDIA | [address] [...] [facility] | [address] | [place] [address] | | | SERVICES, CORE | PARK [...] | | | LABORATORY | | | GRENADIAN | | | SERVICES, | | | [...] the MDRD equation recommended by the | [facility] | | National Kidney Disease Education Program. [...] | + + + + + | [facility] | [address] | [place] [address] | | | LYDIA RANGEL | [address] [...] - [place] | [address] | [place], [place] | | | [place] [facility] [facility] | [facility] | [address] | | | TESTS | | | [...] pattern. | | | | | | Air Tester | | | | | | [...] [facility] | [address] | [place] [address] | | | PATHOLOGY | [address] [...]
--- OUTSIDE RECORDS SUMMARY | ~2019-05-10 | XMS | Encounter Summary ---
Demographics + + + | Address | [address] | | | [place] [address] | + + + | Home Phone [...] [place], [place] | | | | | [address] | | + + + + + | Ellie Vang | ECON | Unknown | | + + + + + Care Team Providers + +------+ + | Care Roller Presser Operator Name | Role | Phone | [...] | [address] | Ave [place], [place] | | | | | Mailcode: CH9A | [address] | | | | | [facility] | [phone] | | | | | and Healing, | | | | | | Building [address] | | | | | | [facility] [place] | | | | | | [address] | | | | | | [phone] | | | +--------+ + + + [...] | Office | Plastic Surgery | Archie Ybrara MD | | | 2019 | Visit | | [address] | | | | | | [place], [place] | | | | | | [address] | | | | | | [phone] | | | | | | | [...] | | | | | [place], [place] | | | | | | [address] | | | | | | [phone] | | | | | | | | +--------+ + + + + | 07/08/ | Procedure | Surgery | | | | 2019 | Pass | | | | +--------+ + + + + documented as of this encounter Visit Diagnoses Not on filedocumented in this encounter"
--- OUTSIDE RECORDS SUMMARY | ~2019-05-10 | XMS | Encounter Summary ---
Demographics + + + | Address | [address] | | | [place] [address] | + + + | Home Phone [...] [place], [place] | | | | | [address] | | + + + + + | Ellie Vang | ECON | Unknown | | + + + + + Care Team Providers + +------+ + | Care Director Of Preclinical Research Name | Role | Phone | [...] | | | | | | | [place], [place] | | | | | | | [address] | | | | | | | Phone: | | | | | | | [phone] | | | | | | | Fax: | | | | | | | [phone] | +--------+--------+ + + + + Encounter [...] | | | [address] | [facility] [place] | Dx) | | | | Mailcode: L223A | [address] | | | | | [facility] | [phone] | | | | | [address] [facility] [place] | | | | | | [address] | | | | | | [phone] | | | +--------+---------+ + + + [...] + documented in this encounter Progress Notes Chrsitian Rocha MD,MPH - 11/05/2015 2:09 PM PDT [facility] Department of Surgery EGS/TRAUMA Surgery Clinic Note [...] 500 mg by mouth once daily. CALCIUM CRB&SJP-E1-OBA37-GENIS ORAL Take 1 tablet by mouth two [...] were answered. Christian Rocha MD MPH FACS [facility] financial aid advisor Trauma, Critical Care & Acute Care Surgery [facility] Jean [phone] documented in thi s encounter Plan of [...] [place] | | | | | | [address] | | | | | | [phone] | | | | | | | [...] | | | | | [place], [place] | | | | | | [address] | | | | | | [phone] | | | | | | | [...]
--- OUTSIDE RECORDS SUMMARY | ~2019-05-10 | XMS | Encounter Summary ---
Demographics + + + | Address | [address] | | | [place] [address] | + + + | Home Phone [...] | Author | [facility] [employer] (Historical as of | | | 03-12-19) | + + + | Organization | [facility] [employer] (Historical as of | | | 03-12-19) [...] Team Providers + +------+ + | Care Compressed Gas Plant Worker Name | Role | Phone | [...] HTN, | | | | | Ya Islas F | goal below 130/80; | | | | | [place] [address] | Chronic diastolic | | | | | [phone] | heart failure (HCC); | | | [...] Elzbieta Cristina Date of : 1975 | [facility] | | Performing Physician: Darryl Merrill [...] MV A Jeffrey: 0.61 m/s MV Dec Mcduffie: 2.43 m/s2 | | | MV DecT: 247.51 ms MV E Jeffrey: 0.60 m/s MV E/A Ratio: | | | 0.98 MV PHT: 71.78 ms MVA By PHT: 3.06 cm2 Septal e': | | | 0.06 m/s Septal E/e': 9.54 Lateral e': 0.10 m/s Lateral | | | E/e': 5.84 RAP: 5 mmHg RV s': 0.11 m/s Stenographer Secretary: | | | DH Authenticated by: Darryl [facility] Report Date/Time: 02-22-2019 | | | 20:8:36 | | + + + + --------+ | Procedure Note | + --------+ | Aditya, Rad Results In - 02/22/2019 8:10 PM PDT Patient Name: Sherrell Cristina | | : 1975Accession: [id number] Physician: Darryl | | Alsamara INDICATIONS------ | [...] cmLVIDd: 4.70 cmLVPWd: 0.79 cmLVOT Area: 3.58 vx0LCTH Diam: 2.13 | | cm%FS: 39.25 %EF(Teich): [...] mlLAESV Index (A-L): 14.72 ml/m2LAAs A2C: 10.03 cq7QXLVJ A-L A2C: 22.69 | | mlLALs A2C: 3.76 cmLAAs A4C: 13.41 wa6WXOHT A-L A4C: 36.80 mlLALs A4C: 4.14 | | cmRAAs: 11.18 lb8FLISP A-L: 22.84 mlRAESV MOD: 22.10 mlRALs: 4.64 cmTAPSE: | | 2.04 cmAV maxP.55 mmHgAV meanP.52 mmHgAV Vmax: 1.27 m/Genesis Vmean: 0.88 | | m/Genesis VTI: 26.50 cmAVA Vmax: 2.49 cm2AVA (VTI): 2.39 fd4JYQL Vmax: 0.00 | | cm2/m2AVAI (VTI): 0.00 cm2/m2LVOT maxP.17 mmHgLVOT meanP.82 mmHgLVSI Dopp: | | 30.83 ml/m2LVSV Dopp: 63.52 mlLVOT Vmax: 0.89 m/sLVOT Vmean: 0.65 m/sLVOT VTI: | | 17.71 cmMV A Jeffrey: 0.61 m/sMV Dec Mcduffie: 2.43 m/s2MV DecT: 247.51 msMV E Jeffrey: | | 0.60 m/sMV E/A Ratio: 0.98 MV PHT: 71.78 msMVA By PHT: 3.06 nx5Kcnkjn e': 0.06 | | m/sSeptal E/e': 9.54 [...] A Jeffrey: 0.61 m/s | |MV Dec Mcduffie: 2.43 m/s2 | |MV DecT: 247.51 ms | |MV E Jeffrey: 0.60 m/s | |MV E/A Ratio: 0.98 | |MV PHT: 71.78 ms | |MVA By PHT: 3.06 cm2 | |Septal e': 0.06 m/s | |Septal E/e': 9.54 | |Lateral e': 0.10 m/s | |Lateral E/e': 5.84 | |RAP: 5 mmHg | |RV s': 0.11 m/s | | | |Stenographer Secretary: JESSICA | |Authenticated by: Darryl Rossyswan river | |Report Date/Time: 02-22-2019 20:8:36 | | [...] [facility] | [address] | [place] [address] | | + + + + + [...]
--- OUTSIDE RECORDS SUMMARY | ~2019-05-10 | XMS | Encounter Summary ---
Demographics + + + | Address | [address] | | | [place] [address] | + + + | Home Phone [...] [place], [place] | | | | | [address] | | + + + + + | Ellie Vang | ECON | Unknown | | + + + + + Care Team Providers + +------+ + | Care Outreach Nurse Name | Role | Phone | [...] | | | 2012 | Event | [facility] | [address] | | | | | Admitting Desk | [address] | | | | | Located on the | [place], [place] | | | | | [facility] [address] | [address] | | | | | [address] | [phone] | | | | | [place], [place] | | | | | | [address] | | | +--------+ + + + [...] [place] | | | | | | [address] | | | | | | [phone] | | | | | | | [...] | | | | | [place], [place] | | | | | | [address] | | | | | | [phone] | | | | | | | [...]
--- OUTSIDE RECORDS SUMMARY | ~2019-05-10 | XMS | Encounter Summary ---
Demographics + + + | Address | [address] | | | [place] [address] | + + + | Home Phone [...] + | Katalina Padilla | ECON | [address] | | | | | [place], [place] | | | | | [address] | | + + + + + [...] at [facility] | MD [address] | (PHENTERMINE 37.5 mg | | | | [address] | [place], [place] | oral tablet); | | | | Mailcode: [place] | [address] | Refill Request | | | | [facility] | [phone] | | | | | and [place], | | | | | | [address] | | | | | | [place], [place] | | | | | | [address] | | | | | | [phone] | | | +--------+--------+ + + + [...] | | | | | | [place], [place] | | | | | | [address] | | | | | | [phone] | | | | | | | [...] | | | | | [place], [place] | | | | | | [address] | | | | | | [phone] | | | | | | | | +--------+ + + + + | 07/08/ | Procedure | Surgery | | | | 2018 | Pass | | | | +--------+ + + + + documented as of this encounter Visit Diagnoses Not on filedocumented in this encounter"
--- OUTSIDE RECORDS SUMMARY | ~2019-05-10 | XMS | Encounter Summary ---
Demographics + + + | Address | [address] | | | [place] [address] | + + + | Home Phone [...] [place], [place] | | | | | [address] | | + + + + + | Ellie Vang | ECON | Unknown | | + + + + + Care Team Providers + +------+ + | Care Card Punching Machine Operator Name | Role | Phone [...] | | | | | | [place] [address] | | | +--------+ + + + [...] [address] | | | | | | [place], [place] | | | | | | [address] | | | | | | [phone] | | | | | | | [...] | | | | | [place], [place] | | | | | | [address] | | | | | | [phone] | | | | | | | | +--------+ + + + + | 07/08/ | Procedure | Surgery | | | | 2019 | Pass | | | | +--------+ + + + + documented as of this encounter Visit Diagnoses Not on filedocumented in this encounter"
--- OUTSIDE RECORDS SUMMARY | ~2019-05-10 | XMS | Encounter Summary ---
Demographics + + + | Address | [address] | | | [place] [address] | + + + | Home Phone [...] [place], [place] | | | | | [address] | | + + + + + | Ellie Vang | ECON | Unknown | | + + + + + Care Team Providers + +------+ + | Care Business Intern Name | Role | Phone | [...] | Pain | Diagnoses | [place], | Dental Insurance Biller Psych | | | | Management | Morbid | Shereen Murcia ACNP | [address] [address] | | | | | obesity with | [address] | | | | | BMI of [address] | [address] | Mailcode: | | | | | and over, | [place], [place] | [address] | | | | | adult ([facility]) | [address] | for Health | | | | | Procedures | Phone: | and Healing, | | | | | CONSULT TO | [phone] | Building 1, | | | | | PAIN | Fax: | 15th Floor | | | | | MANAGEMENT | [phone] | [place], [place] | | | | | [place] | | [address] | | | | | PSYCHIATRIC | | Phone: | | | | | DIAGNOSTIC | | [phone] | | | | | EVAL, NO MED | | Fax: | | | | | [facility] [place] | | [phone] | | | | | PSYCH TSTNG | | | | | | | PSYCH/PHYS | | | +--------+---------+ + + + + Encounter Details +--------+---------+ + + + | Date | Type | Department | Care Team | Description | +--------+---------+ + + + | 10/02/ | Office | [facility] at [facility] | Leslie Mistry, | Morbid obesity | | 2018 | Visit | 15th Floor [address] | PhD [address] [facility] | ([facility]); Bipolar | | | | [address] Mailcode: | [address] | affective disorder, | | | | [facility] Center for | [place], [place] | remission status | | | | Health and Healing, | [address] | unspecified ([facility]); | | | | | [phone] | BMI 60.0-69.9, adult | | | | Floor [place], [place] | | ([facility]); Anxiety | | | | [address] | | | | | | [phone] | | | +--------+---------+ + + + [...] Name: Elzbieta Cristina : 1975 Medical Record: [id number] Age: 42 y.o. Weight today, per patient report: 305 lbs Weight on 09/11/17: 389, BMI 73.54 Identifying Information: Elzbieta Cristina is a 42 y.o. female who lives with her mother in [place], [place]. She was referred for psychological evaluation [...] of cereal with skim milk and a moldovan yogurt L: white bread and cheese and [...] laundry. For enjoym ent the patient watches [employer] with her girlfriend. She is socially active [...] History: Elzbieta Cristina was born in [place] and lived with her mother and sister. [...] time I spent was approximately 60 minutes ebqp-jd-rhvu with the patient and approxima tely 2 hours of mpo-smux-mr-face testing, interpreting and synthesizing results. Leslie Mistry, PhD Clinical Psychologist [facility] [address] [facility], 15th [place] [address] [phone] signed by Leslie Mistry, PhD at 10/08/2017 12:26 PM PDTdocume nted in this encounter Plan of Treatment +--------+ + + + + | Date | Type | Specialty | Care Team | Description | +--------+ + + + + | 05/13/ | Office | Plastic Surgery | Archie Ybarra MD | | | 2018 | Visit | | [address] | | | | | | [place], [place] | | | | | | [address] | | | | | | [phone] | | | | | | | [...] | | | | | [place], [place] | | | | | | [address] | | | | | | [phone] | | | | | | | [...] + + | BMI 60.0-69.9, adult ([facility]) Body Mass Index 60.0-69.9, adult | + + | Anxiety Anxiety state, unspecified | + + documented in this encounter
--- OUTSIDE RECORDS SUMMARY | ~2019-05-10 | XMS | Encounter Summary ---
Demographics + + + | Address | [address] | | | [place] [address] | + + + | Home Phone [...] [place], [place] | | | | | [address] | | + + + + + | Ellie Vang | ECON | Unknown | | + + + + + Care Team Providers + +------+ + | Care Pig Handler Name | Role | Phone | + +------+ + | Fadi Goodrich DO | PCP | | + +------+ + Encounter Details +--------+ + + + + | Date | Type | Department | Care Team | Description | +--------+ + + + + | 08/22/ | Abstract | Cardiology | Randell Franks, | | | 2013 | | Preventive at [facility] | MD [address] | | | | | [address] | Ave [place], [place] | | | | | Mailcode: CH9A | [address] | | | | | [facility] | [phone] | | | | | and Healing, | | | | | | [address] | | | | | | [place], [place] | | | | | | [address] | | | | | | [phone] | | | +--------+ + + + [...] [address] | | | | | | [place], [place] | | | | | | [address] | | | | | | [phone] | | | | | | | [...] | | | | | [place], [place] | | | | | | [address] | | | | | | [phone] | | | | | | | | +--------+ + + + + | 07/08/ | Procedure | Surgery | | | | 2019 | Pass | | | | +--------+ + + + + documented as of this encounter Visit Diagnoses Not on filedocumented in this encounter"
--- OUTSIDE RECORDS SUMMARY | ~2019-05-10 | XMS | Encounter Summary ---
Demographics + + + | Address | [address] | | | [place] [address] | + + + | Home Phone [...] [place], [place] | | | | | [address] | | + + + + + | Ellie Vang | ECON | Unknown | | + + + + + Care Team Providers + +------+ + | Care Conche Loader And Unloader Name | Role | Phone | [...] | | | | | | Pavilion [address] | | | | | | [address] | | | | | | Physician's | | | | | | Pavilion | | | | | | [facility] | | | | | | [place], [place] | | | | | | [address] | | | | | | [phone] | | | +--------+ + + + [...] [address] | | | | | | [place], [place] | | | | | | [address] | | | | | | [phone] | | | | | | | [...] | | | | | [place], [place] | | | | | | [address] | | | | | | [phone] | | | | | | | | +--------+ + + + + | 07/08/ | Procedure | Surgery | | | | 2019 | Pass | | | | +--------+ + + + + documented as of this encounter Visit Diagnoses Not on filedocumented in this encounter"
--- OUTSIDE RECORDS SUMMARY | ~2019-05-10 | XMS | Encounter Summary ---
Demographics + + + | Address | [address] | | | [place] [address] | + + + | Home Phone [...] [place], [place] | | | | | [address] | | + + + + + | Ellie Vang | ECON | Unknown | | + + + + + Care Team Providers + +------+ + | Care Retail Loan Originator Name | Role | Phone | [...] Order | [address] | [place], [place] | | | | | [address] | [address] | | | | | [address] Mailcode: UHN83 | [phone] | | | | | Francesco [address] | | | | | | [address] [place], [place] | | | | | | [address] | | | | | | [phone] | | | +--------+ + + + [...] | 2019 | Visit | | [address] | | | | | | [place], [place] | | | | | | [address] | | | | | | [phone] | | | | | | | | +--------+ + + + + | 06/27/ | Telephone-S | Pre-operative | | | | 2019 | cheduled | Medicine | | | +--------+ + + + + | 06/30/ | Office | Cardiology | Ranedll Franks, | | | 2018 | Visit | | [address] | | | | | | [place], [place] | | | | | | [address] | | | | | | [phone] | | | | | | | [...] -----+ | MRN: | [facility] | | [id number] Date: 06/23/2018Patient Name: Elzbieta Curtis #: | ENDOSCOP Y | | [id number] of : 1975CSN: [id number] Type: | | | AmbulatoryRoom: SORProcedure: Upper GI | | | endoscopyIndications: Nausea with vomiting, Status post | | | Xpgh-ap-XSthsfhfwc: KALEB MILES MD (Doctor), JOSE | | | NASIMA, [employer] Specialist | | | (Retail Zone Specialist)Referring MD: Imtiaz GARCÍA | | | Provider: Medicines: Monitored Anesthesia [...] | | | The Olympus [id number] Gastroscope #[id number] was | | | introduced through the [...] endoscope without resistance. The | | | xpynk-qd-oenfmos limb was characterized by healthy appearing | [...] Initiated On: | | | 06/23/2018 3:58 [facility] Letter to: RADHA MICHAEL DO | [...] |CC Letter to: | | | RADHA MICHAEL [...]
--- OUTSIDE RECORDS SUMMARY | ~2019-05-10 | XMS | Encounter Summary ---
Demographics + + + | Address | [address] | | | [place] [address] | + + + | Home Phone [...] + | Katalina Padilla | ECON | [address] | | | | | [place], [place] | | | | | [address] | | + + + + + | Ellie Vang | ECON | Unknown | | + + + + + Care Team Providers + +------+ + | Care Certified Family Mediator Name | Role | Phone | + [...] | | | | | | Pavilion [address] | | | | | | [address] | | | | | | Physician's | | | | | | Pavilion | | | | | | [facility] Pav[facility] | | | | | | [place], [place] | | | | | | [address] | | | | | | [phone] | | | +--------+ + + + [...] Flannery | | | | | | [place], [place] | | | | | | [address] | | | | | | [phone] | | | | | | | [...] [place] | | | | | | [address] | | | | | | [phone] | | | | | | | | +--------+ + + + + | 07/08/ | Procedure | Surgery | | | | 2019 | Pass | | | | +--------+ + + + + documented as of this encounter Visit Diagnoses Not on filedocumented in this encounter"
--- OUTSIDE RECORDS SUMMARY | ~2019-05-10 | XMS | Encounter Summary ---
Demographics + + + | Address | [address] | | | [place] [address] | + + + | Home Phone [...] [place], [place] | | | | | [address] | | + + + + + | Ellie Vang | ECON | Unknown | | + + + + + Care Team Providers + +------+ + | Care Jeep Mechanic Name | Role | Phone | [...] | | | | | Healing, | [place], [place] | | | | | | [address] | [address] | | | | | | [place], [place] | Phone: | | | | | | [address] | [phone] | | | | | | Phone: | Fax: | | | | | | [phone] | [phone] | | | | | | Fax: | | | | | | | [phone] | | +--------+--------+ + + + + [...] | | | | | Healing, | [place], [place] | | | | | | [address] | [address] | | | | | | [place], [place] | Phone: | | | | | | [address] | [phone] | | | | | | Phone: | Fax: | | | | | | [phone] | [phone] | | | | | | Fax: | | | | | | | [phone] | | +--------+--------+ + + + + Encounter Details +--------+ + + + + | Date | Type | Department | Care Team | Description | +--------+ + + + + | 10/07/ | Hospital | Radiology/Imaging | | | | 2012 | Encounter | Lab at [facility] [address] | | | | | [address] Mailcode: | | | | | | [facility] | [facility], | | | | | | Building 1, 3rd | | | | | | Floor [place], [place] | | | | | | [address] | | | | | | [phone] | | | +--------+ + + + [...] [place] | | | | | | [address] | | | | | | [phone] | | | | | | | [...] [place] | | | | | | [address] | | | | | | [phone] | | | | | | | [...] | [facility] | [address] | [place] [address] | | | OF CARE TESTS | | | | + + + + + documented in this encounter Visit Diagnoses + + | Diagnosis | + + | Hernia Hernia of unspecified site of abdominal cavity without mention of obstruction | | or gangrene | + + documented in this encounter"
--- OUTSIDE RECORDS SUMMARY | ~2019-05-10 | XMS | Encounter Summary ---
Demographics + + + | Address | [address] | | | [place] [address] | + + + | Home Phone [...] [place], [place] | | | | | [address] | | + + + + + | Ellie Vang | ECON | Unknown | | + + + + + Care Team Providers + +------+ + | Care Conveyor Belt Operator Name | Role | Phone | [...] | | 2014 | | Center at [facility] | [facility] [address] | Review (Pre-surgery | | | | [address] | [address] [place], [place] | meal plan. To be | | | | Mailcode: Center | [address] | provided to home | | | | for Health and | | health nurse. ) | | | | [facility], [address] | | | | | | [place], [place] | | | | | | [address] | | | | | | | [...] Flannery | | | | | | [place] | | | | | | [address] | | | | | | [phone] | | | | | | | [...] | | | | | [place], [place] | | | | | | [address] | | | | | | [phone] | | | | | | | | +--------+ + + + + | 07/08/ | Procedure | Surgery | | | | 2019 | Pass | | | | +--------+ + + + + documented as of this encounter Visit Diagnoses Not on filedocumented in this encounter"
--- OUTSIDE RECORDS SUMMARY | ~2019-05-10 | XMS | Encounter Summary ---
Demographics + + + | Address | [address] | | | [place] [address] | + + + | Home Phone [...] [place], [place] | | | | | [address] | | + + + + + | Ellie Vang | ECON | Unknown | | + + + + + Care Team Providers + +------+ + | Care Music Education Adjunct Professor Name | Role | Phone | [...] mellitus (HCC); | | | | at [facility] 3rd Floor | | Cholecystitis | | | | [address] | | | | | | [place], | | | | | | [place] [address] | | | | | | [phone] | | | +--------+------+ + + + [...] Flannery | | | | | | [place], [place] | | | | | | [address] | | | | | | [phone] | | | | | | | [...] | | | | | [place], [place] | | | | | | [address] | | | | | | [phone] | | | | | | | [...] [facility] | [address] | [place] [address] | | | SERVICES, CORE | PARK [...] [facility] | [address] | [place] [address] | | | SERVICES, CORE | CLARENCE [...] | + + + + + | [facility] | [address] | [place] [address] | | | SERVICES, SPECIAL | PARK [...]
--- OUTSIDE RECORDS SUMMARY | ~2019-05-10 | XMS | Encounter Summary ---
Demographics + + + | Address | [address] | | | [place] [address] | + + + | Home Phone [...] [place], [place] | | | | | [address] | | + + + + + | Ellie Vang | ECON | Unknown | | + + + + + Care Team Providers + +------+ + | Care Teacher Of The Deaf Name | Role | Phone | + +------+ + | Fadi Goodrich DO | PCP | | + +------+ + Encounter Details +--------+---------+ + + + | Date | Type | Department | Care Team | Description | +--------+---------+ + + + | 02/22/ | Office | Preoperative | Gay Hoff, | Preop examination | | 2018 | Visit | [facility] at | DNP,ANP [address] | (Primary Dx) | | | | Formerly Named [facility] | [address] | | | | | [address] | [place], [place] | | | | | Mail Code: OC8PM | [address] | | | | | [facility] | [phone] | | | | | and Healing, | | | | | | Building [address] | | | | | | [place], [place] | | | | | | [address] | | | | | | [phone] | | | +--------+---------+ + + + [...] or walk. Surgery check-in location: Admitting - [facility], ninth floor lobby Surgery Check in [...] after office hours, call the [facility] notch machine operator at [phone] and ask them to page him or [...] d function per TTE ( 02/16/2017) from [facility]: Improved and stable. T2DM - controlled with [...] renal failure no electrolyte abnormalities no dialysis Urology/Sales And Support Center Agent: Within Defined Limits except as noted below [...] mg by mouth two times daily. CALCIUM CRB&TMW-S2-XEU96-GENIS ORAL Take 2 tablets by mouth two [...] over in adult ([facility]) Myalgia and myositis Nausea Neck pain Numbness Osteoarthritis of knee Palpitations Pneumonia Shortness of breath Staphylococcal infection Stroke ([facility]) TIA (transient ischemic attack) due to Bromocriptine [...] 98ms, QTC 460ms, TTE ( 02/16/2017) - [facility] [facility] 1. Overall left ventricular systolic function is normal with, an EF between 60 - 65 %. 2. The right ventricle is normal in size and function. 3. No significant valvular abnormalities are noted. 4. In comparison to the previous (technically difficult) echocardiographic study done 01/01, no signfiicant changes are noted. TTE (02/17/2016) - [facility] Conclusions 1. There is normal left ventricular [...] and resp iratory change. TTE (11/07/2015) - [facility] Final Impressions: 1. The interpretation of [...] d function per TTE ( 02/16/2017) form [facility]. Improved and stable. - Confirmed with [...] Advised to bring her own apparatus for [facility]. GERD - On omeprazole. Chronic Fluid retention [...] to this patient's care. Gay Hoff, ERENDIRA,ANP [facility] 4TH FLOOR [address] [facility] [address] I spent time (45 minutes, >50% [...] Flannery | | | | | | [place], [place] | | | | | | [address] | | | | | | [phone] | | | | | | | [...] | | | | | [place], [place] | | | | | | [address] | | | | | | [phone] | | | | | | | [...] [facility] | [address] | [place] [address] | | | SERVICES, CORE | PARK [...] | + + + + + | [facility] | [address] | [place] [address] | | | CLAIRE | CLARENCE BONNER [...] [facility] | [address] | [place] [address] | | | SERVICES, | [address] [...] | [facility] | | considered for monitoring salvage determiner glycemic control in patients with: | LABORATORY [...] | + + + + + | [facility] [employer] | [address] | [place] [address] | | | SERVICES, SPECIAL | CLARENCE [...] | + + + + + | [facility] | [address] | [place] [address] | | | SERVICES, LYDIA | CLARENCE [...] [facility] | [address] | [place], [place] | | | CARDIOLOGY | [address] | [address] | | + + + + + documented in this encounter Visit Diagnoses + + | Diagnosis | + + | Preop examination - Primary Preoperative examination, unspecified | + + documented in this encounter
--- OUTSIDE RECORDS SUMMARY | ~2019-05-10 | XMS | Encounter Summary ---
Demographics + + + | Address | [address] | | | [place] [address] | + + + | Home Phone [...] [place], [place] | | | | | [address] | | + + + + + | Ellie Vang | ECON | Unknown | | + + + + + Care Team Providers + +------+ + | Care Clean Up Supervisor Name | Role | Phone | [...] [address] | [address] [place], [place] | | | | | Mailcode: CH9A | [address] | | | | | [facility] | [phone] | | | | | and Healing, | | | | | | Building [address] | | | | | | [place], [place] | | | | | | [address] | | | | | | [phone] | | | +--------+ + + + [...] Flannery | | | | | | [place], [place] | | | | | | [address] | | | | | | [phone] | | | | | | | [...] [place] | | | | | | [address] | | | | | | [phone] | | | | | | | | +--------+ + + + + | 07/08/ | Procedure | Surgery | | | | 2019 | Pass | | | | +--------+ + + + + documented as of this encounter Visit Diagnoses Not on filedocumented in this encounter"
--- OUTSIDE RECORDS SUMMARY | ~2019-05-10 | XMS | Encounter Summary ---
Demographics + + + | Address | [address] | | | [place] [address] | + + + | Home Phone [...] [place], [place] | | | | | [address] | | + + + + + | Ellie Vang | ECON | Unknown | | + + + + + Care Team Providers + +------+ + | Care Documentation Manager Name | Role | Phone | [...] Hospital | | | | | | [facility], | [place], [place] | | | | | | [address] | [address] | | | | | | [place], [place] | Phone: | | | | | | [address] | [phone] | | | | | | Phone: | Fax: | | | | | | [phone] | [phone] | | | | | | Fax: | | | | | | | [phone] | | +--------+--------+ + + + + [...] | | | without | SURGICAL | [facility] | | | | | mention of | CLINIC [address] [place], | | | | | obstruction | [address] | [place] | | | | | or gangrene | AVE | [address] | | | | | | [place], | Phone: | | | | | | [place] [address] | [phone] | | | | | | Phone: | Fax: | | | | | | [phone] | [phone] | | | | | | Fax: | | | | | | | [phone] | | +--------+--------+ + + + + [...] | | | | Mailcode: Center | [place], [place] | | | | | [facility] and | [address] | | | | | [facility], [facility] 2 | [phone] | | | | | [place], [place] | | | | | | [address] | | | | | | [phone] | | | +--------+---------+ + + + [...] colonoscopy), but a referral to [facility] mentioned this was probably an incisional [...] issues. 2. Optimally will need coordination for [facility] Medicaid & [facility] Bariatric program for wt loss. [...] material. 4. Continue to meet with her Slag Motor Operator in the outpatient setting for diet and [...] has been instructed to f/u w/ her bilingual counter sales retail for a strict diet of <1000 kcal/d [...] teaching. Howie Faria MD MIS/Bariatric Fellow, Pager 52237 [facility] Attending provider: Hernandez Brian [...] Flannery | | | | | | [place], [place] | | | | | | [address] | | | | | | [phone] | | | | | | | [...] [place] | | | | | | [address] | | | | | | [phone] | | | | | | | [...]
--- OUTSIDE RECORDS SUMMARY | ~2019-05-10 | XMS | Clinical Summary ---
Demographics + + + | Address | [address] | | | [place] [address] | + + + | Home Phone [...] + + | Author | [facility] | | | and Jeffana | + + + | Organization | [facility] | | | and [...] Team Providers + +------+ + | Care Reduction Plant Supervisor Name | Role | Phone [...] 0 | | | Activ | | Ikcufwy-Baxxtumqe-Oi | mouth 2 times daily. 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 | + + + + + [...] x | | 30 October 2015 [facility] Assessment & Plan: Hgb appears [...] obesityPickwickian syndrome | | Recent admission to [facility] for 100lb | | weight gain- DC on diuresis on 03/06/2016- she feel improvedShe | | was on Metolazone and Torsemide prior to hospitalization- both | | have better bioavailability than lasix in gut edema but she | | retained 100lbs - how ever she is currently on only Torsemide | | 100mg Q12hrs started in [place] and her weight been stable | | sinceShe has no other complaints.She is pending to see | | NephrologistEcho 02/16/2016([facility])- Normal LV systolic | | function, mildly [...] morbid obesity, she is enrolled in the [facility] bariatric program. | | She has lost [...] tolerating well in the | | hospital-- SHOWELL arranging for BiPAP upon d/c home to [facility] | | areaOverview: Cannot tolerate CPAP [...] + + + + | Overview: Overview: [facility] Assessment & Plan: Patient with [...] responded well to diuresis at | | [facility] (lost 60lb, down to 410), and then reaccumulated water | | weight on Torsemide and metolazone, which should be less effected | | by gut wall edema than Lasix. She has an appt with nephrology at | | [facility] on 03/17. Weight now 200kg (440lb, [...] Defer Metolazone to her | | outpatient Sewage Disposal Engineer or C Developer- Will continue KCL | | supplementation at 60meq QID despite the spironolactone as she | | remains on the low side- Encourage daily weights at home with a | | log; she should contact her PCP, Sewage Disposal Engineer or C Developer for | | a 10lb weight [...] | 02/15/ | Office | Gastroenterology | [facility], | Fatty infiltration | | 2019 [...] | | | | | by [facility] [place] Read Only, | | | | | | [facility] Ya ([id number]), | | | | | | dictionary editor Glen Alberto | | | | | | (482) on 04/28/2019 | | | | | [...] 0.61 m/s | | | MV Dec Blackford: 2.43 m/s2 MV DecT: 247.51 ms MV E Jeffrey: | | | 0.60 m/s MV E/A Ratio: 0.98 MV PHT: 71.78 ms MVA By | | | PHT: 3.06 cm2 Septal e': 0.06 m/s Septal E/e': 9.54 | | | Lateral e': 0.10 m/s Lateral E/e': 5.84 RAP: 5 mmHg RV | | | s': 0.11 m/s Spread Cutter: JESSICA Authenticated by: Darryl | | | [...] cmLVIDd: 4.70 cmLVPWd: 0.79 cmLVOT Area: 3.58 uw0VJNO Diam: 2.13 cm%FS: 39.25 | | %EF(Teich): [...] | Index (A-L): 14.72 ml/m2LAAs A2C: 10.03 cv5MPFMV A-L A2C: 22.69 mlLALs A2C: 3.76 | | cmLAAs A4C: 13.41 fw7LTEHF A-L A4C: 36.80 mlLALs A4C: 4.14 cmRAAs: 11.18 | | he6BYWJP A-L: 22.84 mlRAESV MOD: 22.10 mlRALs: 4.64 cmTAPSE: 2.04 cmAV maxPG: | | 6.55 mmHgAV meanP.52 mmHgAV Vmax: 1.27 m/Genesis Vmean: 0.88 m/Genesis VTI: 26.50 | | cmAVA Vmax: 2.49 cm2AVA (VTI): 2.39 ks9DBTO Vmax: 0.00 cm2/m2AVAI (VTI): 0.00 | | cm2/m2LVOT maxP.17 mmHgLVOT meanP.82 mmHgLVSI Dopp: 30.83 ml/m2LVSV Dopp: | | 63.52 mlLVOT Vmax: 0.89 m/sLVOT Vmean: 0.65 m/sLVOT VTI: 17.71 cmMV A Jeffrey: | | 0.61 m/sMV Dec Blackford: 2.43 m/s2MV DecT: 247.51 msMV E Jeffrey: 0.60 m/sMV E/A Ratio: | | 0.98MV PHT: 71.78 msMVA By PHT: 3.06 lj5Jpwnnn e': 0.06 m/sSeptal E/e': | | 9.54Lateral e': 0.10 m/sLateral E/e': 5.84RAP: 5 mmHgRV s': 0.11 m/s | | Spread Cutter: HONEYuthenticated by: Darryl Patelort Date/Time: 02-22-2019 20:8:36 [...] A Jeffrey: 0.61 m/s | |MV Dec Blackford: 2.43 m/s2 | |MV DecT: 247.51 ms | |MV E Jeffrey: 0.60 m/s | |MV E/A Ratio: 0.98 | |MV PHT: 71.78 ms | |MVA By PHT: 3.06 cm2 | |Septal e': 0.06 m/s | |Septal E/e': 9.54 | |Lateral e': 0.10 m/s | |Lateral E/e': 5.84 | |RAP: 5 mmHg | |RV s': 0.11 m/s | | | |Spread Cutter: JESSICA | |Authenticated by: Darryl Merrill | [...] | [employer] | MODA | [id number] | 10/28/19 | [phone] | | Medica | | MEDICAID HMO | HEALTH | | 19-Pre | 1 | | id | | | MDCD | | sent | | | | | | [place] | | | | | | + +--------+ +--------+ +---------+--------+ | [employer] | MODA | [id number] | | [phone] | | Medica | | MEDICAID HMO [...] [place] | | | 3 (Home) | [address] | + +--------+ +--------+ + + | Elzbieta Cristina | Person | Self | [birth year] | [address] | | | al/Fam | | 1974 | [phone] | [address]ACE [place], [place] | | | mireya | | | 3 (Home) | [address] | + +--------+ +--------+ + + Advance Directives Patient has advance care planning documents on file. For more information, please contact:[facility] [place] [address]
--- OUTSIDE RECORDS SUMMARY | ~2019-05-10 | XMS | Encounter Summary ---
Demographics + + + | Address | [address] | | | [place] [address] | + + + | Home Phone [...] [place], [place] | | | | | [address] | | + + + + + [...] | | | | Procedures | [place], [place] | | | | | | TRANSTHORACI | [address] | | | | | | C | Phone: | | | | | | ECHOCARDIOGR | [phone] | | | | | | AM, ADULT | Fax: | | | | | | | [phone] | | +--------+--------+ + + + + [...] | 2016 | Visit | Preventive at [facility] | MD [address] | exertion) (Primary | | | | [address] | [place], [place] | Dx) | | | | Mailcode: CH9A | [address] | | | | | [facility] | [phone] | | | | | and Erick, | | | | | | [address] | | | | | | [place], [place] | | | | | | [address] | | | | | | [phone] | | | +--------+---------+ + + + [...] 500 mg by mouth once daily. CALCIUM CRB&IOE-H7-DKG89-GENIS ORAL Take 1 tablet by mouth two [...] himself to the local hospit al in [place] and so this has been delayed. ROS: [...] to lose the additional weight requested by [facility] bariatric surgery group. This current weight [...] | | | | | | [place], [place] | | | | | | [address] | | | | | | [phone] | | | | | | | [...] | | | | | [address] [place], [place] | | | | | | [address] | | | | | | [phone] | | | | | | | [...]
--- OUTSIDE RECORDS SUMMARY | ~2019-05-10 | XMS | Encounter Summary ---
Demographics + + + | Address | [address] | | | [place] [address] | + + + | Home Phone [...] [place], [place] | | | | | [address] | | + + + + + | Ellie Vang | ECON | Unknown | | + + + + + Care Team Providers + +------+ + | Care Surgical Technician Name | Role | Phone | + +------+ + | Fadi Goodrich DO | PCP | | + +------+ + Encounter Details +--------+------+ + + + | Date | Type | Department | Care Team | Description | +--------+------+ + + + | 10/12/ | Lab | Laboratory at [facility] | | | | 2019 | | [address] | | | | | | [place], [place] | | | | | | [address] | | | | | | [phone] | | | +--------+------+ + + + [...] Flannery | | | | | | [place], [place] | | | | | | [address] | | | | | | [phone] | | | | | | | | +--------+ + + + + | 06/27/ | Telephone-S | Pre-operative | | | | 2019 | cheduled | Medicine | | | +--------+ + + + + | 06/30/ | Office | Cardiology | Randell Franks, | | | 2019 | Visit | | [address] | | | | | | [place], [place] | | | | | | [address] | | | | | | [phone] | | | | | | | [...] | [facility] | [address] | [place] [address] | | | SERVICES, CORE | PARK [...] INTFC | | | | determined by [facility] | | | | | | Laboratories. See | | | | | | Compliance Statement B: | | | | | | popexpert.ROVOP/CSPerformed | | | | | | by [address] | | | | | | [address], [facility] | | | | | | [address] | | | | | | [phone].popexpert. | | | | | | com, [...] [facility] | [address] | [place], [place] | | | UNIV PTH - INTFC | | [address] | | + + + + + [...] | | | | | determined by [facility] | | | | | | Laboratories. See | | | | | | Compliance Statement B: | | | | | | popexpert.ROVOP/CSPerformed | | | | | | by [address] | | | | | | [address] [facility] | | | | | | [address] | | | | | | [phone].popexpert. | | | | | | comIsmael [...] [facility] | [address] | [place], [place] | | | UNIV PTH - INTFC | | [address] | | + + + + + [...] [facility] | | | (YEN NOAH) | [facility],[address] | | REG UNIV | | | SERUM | Natalia Martinez, [facility],[place] | | PTH - INTFC | | | | [address] | | | | | | [phone].aruplab. | | | | | | Ismael [...] B: | | | | | | Full Circle CRMlab.ROVOP/JUANPABLO | | | | + + + + + + + + | Specimen | + + | Blood - Blood | | (substance) | + + + + + + + | Performing | Address | City/State/Zipcode | Phone Number | | Organization | | | | + + + + + | [facility] | [address] | [place], [place] | | | UNIV PTH - INTFC | | [address] | | + + + + + [...] | [facility] | [address] | [place] [address] | | | SERVICES, CORE | CLARENCE [...] [facility] | [address] | [place] [address] | | | SERVICES, CORE | PARK [...] B: | | | | | | aruplab.ROVOP/CSPerformed | | | | | | by [address] | | | | | | Natalia Martinez, [facility] | | | | | | [address] | | | | | | [phone].popexpert. | | | | | | intermountain healthcareIsmael MD, | | | | | [...] [facility] | [address] | [place], [place] | | | UNIV PTH - INTFC | | [address] | | + + + + + [...] | [facility] | [address] | [place] [address] | | | SERVICES, CORE | CLARENCE [...] [facility] | | | | | | Collections. See | | | | | | Compliance Statement B: | | | | | | popexpert.ROVOP/CSPerformed | | | | | | by [address] | | | | | | Natalia Martinez, [facility] [place] | | | | | | [address] | | | | | | [phone].Full Circle CRMlab. | | | | | | [facility], Ismael Willis MD, | | | [...] [facility] | [address] | [place], [place] | | | UNIV PTH - INTFC | | [address] | | + + + + + [...] | [facility] | [address] | [place] [address] | | | SERVICES, CORE | CLARENCE [...] + + | [facility] | [address] | [place] [address] | | | SERVICES, SPECIAL | PARK [...] | + + + + + | [facility] | [address] | [place] [address] | | | LYDIA RANGEL | CLARENCE [...] at | | | | | | [email or web address] | | | | | | med by [facility] | | | | | | Sergo,Henok Ford | | | | | | [place] [address] | | | | | | [phone]. | | | | | | Ismael [...] [facility] | [address] | [place], [place] | | | [facility] | | [address] | | + + + + + [...] | [facility] | [address] | [place] [address] | | | LYDIA RANGEL | [address] | | | + + + + + documented in this encounter Visit Diagnoses Not on filedocumented in this encounter"
--- OUTSIDE RECORDS SUMMARY | ~2019-05-10 | XMS | Encounter Summary ---
Demographics + + + | Address | [address] | | | [place] [address] | + + + | Home Phone [...] [place], [place] | | | | | [address] | | + + + + + | Ellie Vang | ECON | Unknown | | + + + + + Care Team Providers + +------+ + | Care Bus Trolley And Taxi Instructor Name | Role | Phone | [...] [facility] [address] | ACNP [address] | | | | | [address] | Ave [place], [place] | | | | | Mailcode: [place] | [address] | | | | | for Health and | | | | | | [facility] 2 | | | | | | [facility] [place] | | | | | | [address] | | | | | | | [...] Flannery | | | | | | [place], [place] | | | | | | [address] | | | | | | [phone] | | | | | | | [...] [place] | | | | | | [address] | | | | | | [phone] | | | | | | | | +--------+ + + + + | 07/08/ | Procedure | Surgery | | | | 2019 | Pass | | | | +--------+ + + + + documented as of this encounter Visit Diagnoses Not on filedocumented in this encounter"
--- OUTSIDE RECORDS SUMMARY | ~2019-05-10 | XMS | Encounter Summary ---
Demographics + + + | Address | [address] | | | [place] [address] | + + + | Home Phone [...] [place], [place] | | | | | [address] | | + + + + + | Ellie Vang | ECON | Unknown | | + + + + + Care Team Providers + +------+ + | Care Bailer Tenders Supervisor Name | Role | Phone | [...] Mailcode:OP14B | | | | | | [facility] | | | | | | [place], [place] | | | | | | [address] | | | | | | [phone] | | | +--------+ + + + [...] Flannery | | | | | | [place], [place] | | | | | | [address] | | | | | | [phone] | | | | | | | [...] [place] | | | | | | [address] | | | | | | [phone] | | | | | | | [...] in | | | | | | [place]. | | | | | | | | | | | | Julia Blackman at [facility]. | | | | | | | [...] | | | | artery. A 4.1 Spanish | | | | | | catheter [...] | + +---------+ + + | [facility] DEPARTMENT OF | | | | | RADIOLOGY | | | | + +---------+ + + documented in this encounter Visit Diagnoses Not on filedocumented in this encounter
--- OUTSIDE RECORDS SUMMARY | ~2019-05-10 | XMS | Encounter Summary ---
Demographics + + + | Address | [address] | | | [place] [address] | + + + | Home Phone [...] [place], [place] | | | | | [address] | | + + + + + | Ellie Vang | ECON | Unknown | | + + + + + Care Team Providers + +------+ + | Care Computer Scientist Name | Role | Phone [...] 2017 | | Center at [facility] [address] | ACNP [address] | | | | | [address] | Ave [place], [place] | | | | | Mailcode: [place] | [address] | | | | | for Health and | [phone] | | | | | [facility] 2 | | | | | | [place], [place] | | | | | | [address] | | | | | | | [...] | | 2019 | Visit | | [address] | | | | | | [place], [place] | | | | | | [address] | | | | | | [phone] | | | | | | | [...] | | | | [place], [place] | | | | | | [address] | | | | | | [phone] | | | | | | | | +--------+ + + + + | 07/08/ | Procedure | Surgery | | | | 2018 | Pass | | | | +--------+ + + + + documented as of this encounter Visit Diagnoses Not on filedocumented in this encounter"
--- OUTSIDE RECORDS SUMMARY | ~2019-05-10 | XMS | Encounter Summary ---
Demographics + + + | Address | [address] | | | [place] [address] | + + + | Home Phone [...] [place], [place] | | | | | [address] | | + + + + + | Ellie Vang | ECON | Unknown | | + + + + + Care Team Providers + +------+ + | Care Insurance Collector Name | Role | Phone | + +------+ + | Kenyatta Cardenas MD | PCP | | + +------+ + Encounter Details +--------+ + + + + | Date | Type | Department | Care Team | Description | +--------+ + + + + | 03/22/ | Hospital | Radiology/Imaging | Keren Allen, | | | 2019 | Encounter | Lab at [facility] [address] | AGAP [address] | | | | | [address] [place] Mailcode: | [place], [place] | | | | | [facility] | [address] | | | | | Health and Healing, | [phone] | | | | | [address] | | | | | | Floor [facility] [place] | | | | | | [address] | | | | | | [phone] | | | +--------+ + + + [...] | | 0 | | | | [id number]&NEN-Y4-[id number]-GEN | mouth two times | | | [...] Flannery | | | | | | [place], [place] | | | | | | [address] | | | | | | [phone] | | | | | | | [...] | | | | | [place], [place] | | | | | | [address] | | | | | | [phone] | | | | | | | [...]
--- OUTSIDE RECORDS SUMMARY | ~2019-05-10 | XMS | Encounter Summary ---
Demographics + + + | Address | [address] | | | [place] [address] | + + + | Home Phone [...] [place], [place] | | | | | [address] | | + + + + + | Ellie Vang | ECON | Unknown | | + + + + + Care Team Providers + +------+ + | Care Needle Board Repairer Name | Role | Phone | + +------+ + | Kenyatta Cardenas MD | PCP | | + +------+ + Encounter Details +--------+ + + + + | Date | Type | Department | Care Team | Description | +--------+ + + + + | 03/02/ | Career Professional | Digestive Health | Keren Allen, | | | 2019 | | Center at [facility] [address] | AGACNP [address] | | | | | [address] | [place] [facility] [place] | | | | | Mailcode: [place] | [address] | | | | | for Health and | | | | | | [facility] 2 | | | | | | [place], [place] | | | | | | [address] | | | | | | | [...] [place] | | | | | | [address] | | | | | | [phone] | | | | | | | | +--------+ + + + + | 06/27/ | Telephone-S | Pre-operative | | | | 2018 | cheduled | Medicine | | | +--------+ + + + + | 06/30/ | Office | Cardiology | Randell Franks, | | | 2018 | Visit | | [address] | | | | | | [place], [place] | | | | | | [address] | | | | | | [phone] | | | | | | | | +--------+ + + + + | 07/08/ | Procedure | Surgery | | | | 2018 | Pass | | | | +--------+ + + + + documented as of this encounter Visit Diagnoses Not on filedocumented in this encounter"
--- OUTSIDE RECORDS SUMMARY | ~2019-05-10 | XMS | Encounter Summary ---
Demographics + + + | Address | [address] | | | [place] [address] | + + + | Home Phone [...] [place], [place] | | | | | [address] | | + + + + + | Ellie Vang | ECON | Unknown | | + + + + + Care Team Providers + +------+ + | Care Craft Manager Name | Role | Phone | [...] | | [address] | Ave [place], [place] | | | | | Mailcode: [place] | [address] | | | | | for Health and | [phone] | | | | | [facility] 2 | | | | | | [facility] [place] | | | | | | [address] | | | | | | | [...] Flannery | | | | | | [place], [place] | | | | | | [address] | | | | | | [phone] | | | | | | | [...] | | | | | [place], [place] | | | | | | [address] | | | | | | [phone] | | | | | | | | +--------+ + + + + | 07/08/ | Procedure | Surgery | | | | 2018 | Pass | | | | +--------+ + + + + documented as of this encounter Visit Diagnoses Not on filedocumented in this encounter"
--- OUTSIDE RECORDS SUMMARY | ~2019-05-10 | XMS | Encounter Summary ---
Demographics + + + | Address | [address] | | | [place] [address] | + + + | Home Phone [...] [place], [place] | | | | | [address] | | + + + + + | Ellie Vang | ECON | Unknown | | + + + + + Care Team Providers + +------+ + | Care Web Pressman Name | Role | Phone | + +------+ + | Fadi Goodrich DO | PCP | | + +------+ + Encounter Details +--------+ + + + + | Date | Type | Department | Care Team | Description | +--------+ + + + + | 10/27/ | Abstract | Digestive Health | Clinic, Surgery | | | 2018 | | [place] at [facility] [address] | | | | | | [address] | | | | | | Mailcode: [place] | | | | | | [facility] Health and | | | | | | [facility] 2 | | | | | | [place], [place] | | | | | | [address] | | | | | | [phone] | | | +--------+ + + + [...] Flannery | | | | | | [place], [place] | | | | | | [address] | | | | | | [phone] | | | | | | | | +--------+ + + + + | 06/27/ | Telephone-S | Pre-operative | | | | 2019 | cheduled | Medicine | | | +--------+ + + + + | 06/30/ | Office | Cardiology | Randell Franks, | | | 2018 | Visit | | [address] | | | | | | [place], [place] | | | | | | [address] | | | | | | [phone] | | | | | | | | +--------+ + + + + | 07/08/ | Procedure | Surgery | | | | 2018 | Pass | | | | +--------+ + + + + documented as of this encounter Visit Diagnoses Not on filedocumented in this encounter"
--- OUTSIDE RECORDS SUMMARY | ~2019-05-10 | XMS | Encounter Summary ---
Demographics + + + | Address | [address] | | | [place] [address] | + + + | Home Phone [...] [place], [place] | | | | | [address] | | + + + + + | Ellie Vang | ECON | Unknown | | + + + + + Care Team Providers + +------+ + | Care Product Manufacturing Professional Name | Role | Phone | [...] | | 2016 | | Preventive at [facility] | [address] | (Phentermine) | | | | [address] | Ave [place], [place] | | | | | Mailcode: [place] | [address] | | | | | [facility] | [phone] | | | | | and [place], | | | | | | Building [address] | | | | | | [place], [place] | | | | | | [address] | | | | | | [phone] | | | +--------+ + + + [...] [place] | | | | | | [address] | | | | | | [phone] | | | | | | | | +--------+ + + + + | 06/27/ | Telephone-S | Pre-operative | | | | 2019 | cheduled | Medicine | | | +--------+ + + + + | 06/30/ | Office | Cardiology | Randell Franks, | | | 2019 | Visit | | [address] | | | | | | [place], [place] | | | | | | [address] | | | | | | [phone] | | | | | | | | +--------+ + + + + | 07/08/ | Procedure | Surgery | | | | 2019 | Pass | | | | +--------+ + + + + documented as of this encounter Visit Diagnoses Not on filedocumented in this encounter"
--- OUTSIDE RECORDS SUMMARY | ~2019-05-10 | XMS | Encounter Summary ---
Demographics + + + | Address | [address] | | | [place] [address] | + + + | Home Phone [...] [place], [place] | | | | | [address] | | + + + + + | Ellie Vang | ECON | Unknown | | + + + + + Care Team Providers + +------+ + | Care Mission Systems Engineer Name | Role | Phone [...] Diabetes & | Morbid | Kathy M, OPERATOR SUPPLY | [address] | | | | Metabolism | obesity | [address] | | | | | (HCC) | [address], | [address] | | | | | Procedures | [address] | Physician's | | | | | CONSULT TO | [place], [place] | [place] | | | | | ENDO | [address] | Physician's | | | | | [address] | Phone: | Pavilion | | | | | [address] | [phone] | [place], [place] | | | | | | Fax: | [address] | | | | | | [phone] | Phone: | | | | | | | [phone] | | | | | | | Fax: | | | | | | | [phone] | +--------+--------+ + + + + Encounter [...] | | Center at Physicians | Ave [place], [place] | ([facility]) (Primary Dx); | | | | Pavilion [address] | [address] | Type 2 diabetes | | | | [address] | [phone] | mellitus ([facility]); AMARA | | | | Physician's | | (obstructive sleep | | | | Pavilion | | apnea); Morbid | | | | Physician's Pavilion | | obesity ([facility]); | | | | [place], [place] | | Edema; GERD | | | | [address] | | (gastroesophageal | | | | [phone] | | reflux disease) | +--------+---------+ + [...] Goodrich DO Referring physician: Kathy Feldman, KALYAN [address] [place] [address] HPI: Dylan is a 38 y.o. female [...] Flannery | | | | | | [place], [place] | | | | | | [address] | | | | | | [phone] | | | | | | | [...] | | | [place] [facility] [place] | | | | | | [address] | | | | | | [phone] | | | | | | | [...] | | | PDT | type 2) ([facility]) | results section. | + +--------+ + + + | NM COLLECTION | Routin | 04/14/2013 | DM type 2 | | | CAPILLARY BLOOD | e | 11:08 AM | (diabetes mellitus, | | | SPECIMEN | | PDT | type 2) ([facility]) | [...] [place] | [address] | [place], [place] | | | JUSTINE DAWN OF [facility] | [facility] | [address] | | | TESTS | | | [...]
--- OUTSIDE RECORDS SUMMARY | ~2019-05-10 | XMS | Encounter Summary ---
Demographics + + + | Address | [address] | | | [place] [address] | + + + | Home Phone [...] [place], [place] | | | | | [address] | | + + + + + | Ellie Vang | ECON | Unknown | | + + + + + Care Team Providers + +------+ + | Care Unit Controller Name | Role | Phone | [...] + | 01/01/ | Emergency | [facility] Emergency | Fide Hester | | | 2017 - | | Department [address] | MD Raza [address] | | | | | [address] | [address] | | | 01/02/ | | [facility] | [place], [place] | | | 2017 | | [place], [place] | [address] | | | | | [address] | [phone] | | | | | [phone] | | | | | | | Jaime Yee, | | | | | | ANP [address] | | | | | | [facility] | | | | | | [place], [place] | | | | | | [address] | | | | | | [phone] | | | | | | | | | | | | Sheree Aguiar MD | | | | | | [address] | | | | | | [place], [place] | | | | | | [address] | | | | | | | | | | | | Felix Cardoza, | | | | | | PET TRAINER [address] | | | | | | [address] | | | | | | [place], [place] | | | | | | [address] | | | | | | [phone] | | | | | | | [...] for discharge. Thank you for choosing [facility] for your healthcare needs. Abdominal Hernia Repair: [...] living will and a durable power of corporate associate attorney for health care. Bring a copy [...] apply lotions, perfume s, deodorants, or nail gibraltarian. Do not shave the surgical site yourself. [...] driving, and getting back to your [facility] routine. When should you call your [...] Repair: Before Your Surgery", log into your Networker a ccount at [email or web address]. You can enter U288 in the "AdhereTx Library" search box . Not on Networker? Review the [employer] section of your After Visit Summary for directions on anjel aguero to sign up. Current as of: March 04, 2016 Content Version: 11.2 [id number] [employer]. Care instructions adapted under license by Critical access hospital & [facility]. If you have questions about a medical condition or this instr uction, always ask your healthcare professional. [facility] disclaims any curly anty or liability for [...] changes in the way you eat. An addiction specialist to help you be more active [...] Prepare for Weight-Loss Surgery", log into your Networker account at [email or web address]. You can enter C413 in the "AdhereTx Library" s earch box. Not on Networker? Review the Networker section of your After Visit Summary for directions on anjel aguero to sign up. Current as of: May 08, 2016 Content Version: 11.2 [id number] [facility]. Care instructions adapted under license by Critical access hospital & [facility]. If you have questions about a medical condition or this instr uction, always ask your healthcare professional. [facility] disclaims any curly anty or liability for [...] | | 0 | | | | CRB&[id number] | mouth two times | | | [...] MD - 01/02/2017 7:49 AM PDT [facility] DEPARTMENT OF SURGERY EMERGENCY GENERAL SURGERY Division [...] wall hernias, laci hobbs was flown from [place] with abdominal pain from a recurrent, reducible [...] uss with Dr. Moore. Mary Ball MD [id number] [facility] A [address] [facility] [place] [address] documented in this en counter Plan of Treatment +--------+ + + + + | Date | Type | Specialty | Care Team | Description | +--------+ + + + + | 05/13/ | Office | Plastic Surgery | Archie Ybarra MD | | | 2018 | Visit | | [address] | | | | | | [place] | | | | | | [address] | | | | | | [phone] | | | | | | | [...] [place] | | | | | | [address] | | | | | | [phone] | | | | | | | [...] AMES | [address] | [place], [place] | | | LÓPEZ POINT OF CARE | [address] | [address] | | | TESTS | | | [...] [facility] | [address] | [place] [address] | | | SERVICES, CORE | [address]ARENCE [...] AMES | [address] | [place], [place] | | | JUSTINE DAWN OF CARE | [address] | [address] | | | TESTS | | | [...] | [address] | [place] [address] | | | SERVICES, CORE | PARK [...] + | [facility] | [address] [facility] | [place] [address] | | | SERVICES, CORE | PARK [...] + | [facility] | [address] | [place] [address] | | | [place] | | | [...] [facility] | [address] | [place] [address] | | | SERVICES, CORE | CLARENCE [...] KWAKU | [address] | [place], [place] | | | JUSTINE DAWN OF CARE | [facility] | [address] | | | TESTS | | | [...] | [address] | [place] [address] | | | SERVICES, | [address] [...] | + + + + + | [employer] | [address] | [place] [address] | | | SERVICES, | [address] [...] [place] [facility] | [address] | [place] [address] | | | SERVICESLYDIA | [address] [...] + | [facility] | [address] [facility] | [place] [address] | | | SERVICES, CORE | CLARENCE [...] + | [facility] | [address] | [place] [address] | | | SERVICES, CORE | [address] | | | + + + + + ED INFORMATION EXCHANGE (01/01/2017 8:22 AM PDT) + + + + + + | Component | Value | Ref Range | Performed | Pathologist | | | | | At | Signature | + + + + + + | [facility] | [id number] | | [facility] | | | | [id number] | | MEDICAL | | | | [...] ----- ---- | | | RADHA GOODRICH [facility] | | | [facility] Unknown Primary Care | | | Unknown - Current Radha Goodrich DO | | | [phone] Primary Care | | | Unknown - Current | | + + + + + + + + | Performing | Address | City/State/Zipcode | Phone Number | | Organization | | | | + + + + + | [facility] | [address], | [place], [place] | [phone] | | [employer] | [address] | [address] | | + + + + + [...] | | | HOURS, First dose on [facility] 01/01/17 | | AM PDT | | [...] | | | | | | [facility] 01/01/17 at 2200, Until | | [...] | | First dose on [facility] 01/01/17 at 1945, | | AM [...] | | ONCE, 1 dose, [facility] 01/01/17 at 0945 | | AM [...]
--- OUTSIDE RECORDS SUMMARY | ~2019-05-10 | XMS | Encounter Summary ---
[...] [place], [place] | | | | | [address] | | + + + + + | Ellie Vang | ECON | Unknown | | + + + + + Care Team Providers + +------+ + | Care Seed Yeast Operator Name | Role | Phone | + +------+ + | Fadi Goodrich DO | PCP | | + +------+ + Encounter Details +--------+------+ + + + | Date | Type | Department | Care Team | Description | +--------+------+ + + + | 10/12/ | Lab | Laboratory at [facility] | | | | 2019 | | [address] | | | | | | [place], [place] | | | | | | [address] | | | | | | [phone] | | | +--------+------+ + + + [...] 2019 | Visit | | [address] | | | | | | [place], [place] | | | | | | [address] | | | | | | [phone] | | | | | | | | +--------+ + + + + | 06/27/ | Telephone-S | Pre-operative | | | | 2019 | cheduled | Medicine | | | +--------+ + + + + | 06/30/ | Office | Cardiology | Randell Franks, | | | 2019 | Visit | | [address] | | | | | | [place], [place] | | | | | | [address] | | | | | | [phone] | | | | | | | [...] | [facility] | [address] | [place] [address] | | | SERVICES, CORE | PARK [...] INTFC | | | | determined by [facility] | | | | | | Laboratories. See | | | | | | Compliance Statement B: | | | | | | [employer]CSPerformed | | | | | | by Apportable,[address] | | | | | | Natalia Martinez, [facility] | | | | | | [address] | | | | | | [phone].[employer]. | | | | | | [...] REG | [address] | [place], [place] | | | UNIV PTH - INTFC | | [address] | | + + + + + [...] B: | | | | | | [employer]CSPerformed | | | | | | by Apportable,[address] | | | | | | Natalia Martinez [facility],[place] | | | | | | [address] | | | | | | [phone].[employer]. | | | | | | [...] REG | [address] | [place], [place] | | | UNIV PTH - INTFC | | [address] | | + + [...] [facility] | | | (YEN NOAH) | [facility],[address] | | REG UNIV | | | SERUM | Natalia Martinez, [facility],[place] | | PTH - INTFC | | | | [address] | | | | | | [phone].aruplab. | | | | | | Ismael [...] B: | | | | | | [employer]JUANPABLO | | | | + + + + + + + + | Specimen | + + | Blood - Blood | | (substance) | + + + + + + + | Performing | Address | City/State/Zipcode | Phone Number | | Organization | | | | + + + + + | [facility] | [address] | [place], [place] | | | UNIV PTH - INTFC | | [address] | | + + + + + [...] | [facility] | [address] | [place] [address] | | | SERVICES, CORE | CLARENCE [...] [facility] | [address] | [place] [address] | | | SERVICES, CORE | PARK [...] B: | | | | | | aruplab.[employer]./CSPerformed | | | | | | by Apportable,[address] | | | | | | Natalia Martinez, [facility],[place] | | | | | | [address] | | | | | | [phone].[employer]. | | | | | | orem [...] [facility] | [address] | [place], [place] | | | UNIV PTH - INTFC | | [address] | | + + + + + [...] + | [facility] | [address] | [place] [address] | | | SERVICES, CORE | CLARENCE [...] [facility] | | | | | | [employer]. See | | | | | | Compliance Statement B: | | | | | | [employer]CSPerformed | | | | | | by Apportable,[address] | | | | | | Natalia Martinez, [facility],[place] | | | | | | [address] | | | | | | [phone].[employer]. | | | | | | [facility], Ismael Willis MD, | | | [...] [facility] | [address] | [place], [place] | | | UNIV PTH - INTFC | | [address] | | + + + + + [...] + | [facility] | [address] | [place] [address] | | | SERVICES, CORE | CLARENCE [...] + + | [facility] | [address] | [place] [address] | | | SERVICES, SPECIAL | PARK [...] | + + + + + | Yippy | [address] | [place] [address] | | | [address] RANG[address] | CLARENCE [...] at | | | | | | www.[employer]csPerfor | | | | | | med by [facility] | | | | | | Sergo,[address] | | | | | | [place] [address] | | | | | | [phone].[employer]. | | | | | | Ismael [...] REG | [address] | [place], [place] | | | UNIV PTH - INTFC | | [address] | | + + + + + [...] HOSPITAL LABORATORY | [address] | [place] [address] | | | [address] RANGEL | [address] | | | + + + + + documented in this encounter Visit Diagnoses Not on filedocumented in this encounter"
--- OUTSIDE RECORDS SUMMARY | ~2019-05-10 | XMS | Encounter Summary ---
Demographics + + + | Address | [address] | | | [place] [address] | + + + | Home Phone [...] [place], [place] | | | | | [address] | | + + + + + | Ellie Vang | ECON | Unknown | | + + + + + Care Team Providers + +------+ + | Care Appeals Officer Name | Role | Phone | + +------+ + | Fadi Goodrich DO | PCP | | + +------+ + Encounter Details +--------+------+ + + + | Date | Type | Department | Care Team | Description | +--------+------+ + + + | 05/27/ | Lab | Laboratory at [facility] | | History of Frandy-en-Y | | 2017 | | [address] | | gastric bypass; | | | | [place], [place] | | Ventral hernia | | | | [address] | | without obstruction | | | | [phone] | | or gangrene; Mixed | | [...] [address]ann[address] | | | | | | [place], [place] | | | | | | [address] | | | | | | [phone] | | | | | | | [...] | | | | [place] [facility] [place] | | | | | | [address] | | | | | | [phone] | | | | | | | [...] [facility] | [address] | [place] [address] | | | SERVICES, CORE | PARK [...] | + + + + + | [facility] | [address] | [place] [address] | | | SERVICES, CORE | CLARENCE [...] [facility] | | considered for monitoring manager long term care glycemic control in patients [...] [facility] | [address] | [place] [address] | | | SERVICES, SPECIAL | PARK [...] B: | | | | | | [facility]/CSPerformed | | | | | | by myParcelDelivery,[address] | | | | | | [facility] | | | | | | [address] | | | | | | [phone].[facility]. | | | | | | comIsmael [...] [facility] | [address] | [place], [place] | | | [facility] | | [address] | | + + + + + [...] | | | LABORATORY | | | BELGIAN | | | SERVICES, | | | [...] the MDRD equation recommended by the | [facility] | | National Kidney Disease Education Program. [...] [facility] | [address] | [place] [address] | | | SERVICES, CORE | PARK [...] [facility] | [address] | [place] [address] | | | CLAIRE, CORE | PARK [...] [facility] | [address] | [place] [address] | | | SERVICES, CORE | PARK [...] | + + + + + | [facility] | [address] | [place] [address] | | | SERVICES, LYDIA | CLARENCE [...] | | | LABORATORY | | | LYDAI RANGEL | + + + + + + + + | Performing | Address | City/State/Zipcode | Phone Number | | Organization | | | | + + + + + | [facility] | [address] [facility] | [place] [address] | | | LYDIA RANGEL | PARK [...] | + + + + + | [facility] | [address] | [place] [address] | | | SERVICES, CORE | CLARENCE [...]
--- OUTSIDE RECORDS SUMMARY | ~2019-05-10 | XMS | Encounter Summary ---
Demographics + + + | Address | [address] | | | [place] [address] | + + + | Home Phone [...] + | Author | [facility] (Historical as of | | | 03-12-19) | + + + | Organization | [facility] (Historical as of | | | 03-12-19) [...] | + + +---------+ + | Ila Folres | ECON | Unknown | | + + +---------+ + Care Team Providers + +------+ + | Care Certified Marine Mechanic Name | Role | Phone | [...] below 130/80; | | | | | [place] [address] | Chronic diastolic | | | | | [phone] | heart failure (HCC); | | | [...] Elzbieta Cristina Date of : 1975 | [facility] | | Performing Physician: Darryl Merrill [...] MV A Jeffrey: 0.61 m/s MV Dec Mccurtain: 2.43 m/s2 | | | MV DecT: 247.51 ms MV E Jeffrey: 0.60 m/s MV E/A Ratio: | | | 0.98 MV PHT: 71.78 ms MVA By PHT: 3.06 cm2 Septal e': | | | 0.06 m/s Septal E/e': 9.54 Lateral e': 0.10 m/s Lateral | | | E/e': 5.84 RAP: 5 mmHg RV s': 0.11 m/s Drawer Waxer: | | | DH Authenticated by: Darryl [facility] Report Date/Time: 02-22-2019 | | | 20:8:36 | | + + + + --------+ | Procedure Note | + --------+ | Aditya, Rad Results In - 02/22/2019 8:10 PM PDT Patient Name: Sherrell Cristina | | : 1975Accession: [id number] Physician: Darryl | | Alsamara INDICATIONS------ | [...] cmLVIDd: 4.70 cmLVPWd: 0.79 cmLVOT Area: 3.58 km5IVUN Diam: 2.13 | | cm%FS: 39.25 %EF(Teich): [...] mlLAESV Index (A-L): 14.72 ml/m2LAAs A2C: 10.03 po4METVC A-L A2C: 22.69 | | mlLALs A2C: 3.76 cmLAAs A4C: 13.41 rg8NNUYD A-L A4C: 36.80 mlLALs A4C: 4.14 | | cmRAAs: 11.18 my8LXGDE A-L: 22.84 mlRAESV MOD: 22.10 mlRALs: 4.64 cmTAPSE: | | 2.04 cmAV maxP.55 mmHgAV meanP.52 mmHgAV Vmax: 1.27 m/Genesis Vmean: 0.88 | | m/Genesis VTI: 26.50 cmAVA Vmax: 2.49 cm2AVA (VTI): 2.39 fv0TFBM Vmax: 0.00 | | cm2/m2AVAI (VTI): 0.00 cm2/m2LVOT maxP.17 mmHgLVOT meanP.82 mmHgLVSI Dopp: | | 30.83 ml/m2LVSV Dopp: 63.52 mlLVOT Vmax: 0.89 m/sLVOT Vmean: 0.65 m/sLVOT VTI: | | 17.71 cmMV A Jeffrey: 0.61 m/sMV Dec Mccurtain: 2.43 m/s2MV DecT: 247.51 msMV E Jeffrey: | | 0.60 m/sMV E/A Ratio: 0.98 MV PHT: 71.78 msMVA By PHT: 3.06 yj4Arllig e': 0.06 | | m/sSeptal E/e': 9.54 [...] A Jeffrey: 0.61 m/s | |MV Dec Mccurtain: 2.43 m/s2 | |MV DecT: 247.51 ms | |MV E Jeffrey: 0.60 m/s | |MV E/A Ratio: 0.98 | |MV PHT: 71.78 ms | |MVA By PHT: 3.06 cm2 | |Septal e': 0.06 m/s | |Septal E/e': 9.54 | |Lateral e': 0.10 m/s | |Lateral E/e': 5.84 | |RAP: 5 mmHg | |RV s': 0.11 m/s | | | |Drawer Waxer: JESSICA | |Authenticated by: Darryl Rossypalmer | |Report Date/Time: 02-22-2019 20:8:36 | | [...] [facility] | [address] | [place] [address] | | + + + + + [...]
--- OUTSIDE RECORDS SUMMARY | ~2019-05-10 | XMS | Encounter Summary ---
Demographics + + + | Address | [address] | | | [place] [address] | + + + | Home Phone [...] [place], [place] | | | | | [address] | | + + + + + | Ellie Vang | ECON | Unknown | | + + + + + Care Team Providers + +------+ + | Care School Bus Mechanic Name | Role | Phone | [...] Order | [address] | [place], [place] | | | | | [address] | [address] | | | | | Rd Mailcode: UHN83 | [phone] | | | | | Francesco Peres | | | | | | [address] [place], [place] | | | | | | [address] | | | | | | [phone] | | | +--------+ + + + [...] | 2019 | Visit | | [address] | | | | | | [place], [place] | | | | | | [address] | | | | | | [phone] | | | | | | | [...] [place] | | | | | | [address] | | | | | | [phone] | | | | | | | [...] -----+ | MRN: | [facility] | | [id number] Date: 06/23/2018Patient Name: Elzbieta Curtis #: | ENDOSCOP Y | | [id number] of : 1975CSN: [id number] Type: | | | AmbulatoryRoom: SORProcedure: Upper GI | | | endoscopyIndications: Nausea with vomiting, Status post | | | Ygsz-at-MNsviybhwt: KALEB MILES MD (Doctor), JOSE | | | NASIMA, Superintendent Distribution | | | (Superintendent Distribution)Referring MD: Imtiaz GARCÍA | | | Provider: [...] | | | The Olympus [id number] Gastroscope #[id number] was | | | introduced through the [...] endoscope without resistance. The | | | maanq-zv-qoztkcl limb was characterized by healthy appearing | [...] 06/23/2018 3:58 [facility] Letter to: RADHA MICHAEL DO | [...] Performing | Address | City/State/Unm [facility] | Phone Number | | Organization [...]
--- OUTSIDE RECORDS SUMMARY | ~2019-05-10 | XMS | Encounter Summary ---
Demographics + + + | Address | [address] | | | [place] [address] | + + + | Home Phone [...] [place], [place] | | | | | [address] | | + + + + + | Ellie Vang | ECON | Unknown | | + + + + + Care Team Providers + +------+ + | Care Cattyman Name | Role | Phone | + +------+ + | Fadi Goodrich DO | PCP | | + +------+ + Encounter Details +--------+ + + + + | Date | Type | Department | Care Team | Description | +--------+ + + + + | 12/31/ | Abstract | Digestive Health | Hernandez Brian, | | | 2012 | | Center at [facility] [address] | MD [address] | | | | | [address] | [facility] | | | | | Mailcode: Center | [place], [place] | | | | | [facility] and | [address] | | | | | [facility] 2 | [phone] | | | | | [place], [place] | | | | | | [address] | | | | | | [phone] | | | +--------+ + + + [...] [address] | | | | | | [place], [place] | | | | | | [address] | | | | | | [phone] | | | | | | | | +--------+ + + + + | 06/27/ | Telephone-S | Pre-operative | | | | 2019 | cheduled | Medicine | | | +--------+ + + + + | 06/30/ | Office | Cardiology | Randell Franks, | | | 2019 | Visit | | [address] | | | | | | [place], [place] | | | | | | [address] | | | | | | [phone] | | | | | | | | +--------+ + + + + | 07/08/ | Procedure | Surgery | | | | 2018 | Pass | | | | +--------+ + + + + documented as of this encounter Visit Diagnoses Not on filedocumented in this encounter"
--- OUTSIDE RECORDS SUMMARY | ~2019-05-10 | XMS | Encounter Summary ---
Demographics + + + | Address | [address] | | | [place] [address] | + + + | Home Phone [...] [place], [place] | | | | | [address] | | + + + + + | Ellie Vang | ECON | Unknown | | + + + + + Care Team Providers + +------+ + | Care Production Engineer Track Name | Role | Phone | + +------+ + | Fadi Goodrich DO | PCP | | + +------+ + Encounter Details +--------+ + + + + | Date | Type | Department | Care Team | Description | +--------+ + + + + | 11/09/ | Abstract | Cardiology | Randell Franks, | | | 2014 | | Preventive at [facility] | MD [address] | | | | | [address] | Ave [place], [place] | | | | | Mailcode: CH9A | [address] | | | | | [facility] | [phone] | | | | | and Healing, | | | | | | Building [address] | | | | | | [place], [place] | | | | | | [address] | | | | | | [phone] | | | +--------+ + + + [...] [address] | | | | | | [place], [place] | | | | | | [address] | | | | | | [phone] | | | | | | | [...] | | | | | [place], [place] | | | | | | [address] | | | | | | [phone] | | | | | | | | +--------+ + + + + | 07/08/ | Procedure | Surgery | | | | 2019 | Pass | | | | +--------+ + + + + documented as of this encounter Visit Diagnoses Not on filedocumented in this encounter"
--- OUTSIDE RECORDS SUMMARY | ~2019-05-10 | XMS | Encounter Summary ---
Demographics + + + | Address | [address] | | | [place] [address] | + + + | Home Phone [...] [place], [place] | | | | | [address] | | + + + + + | Ellie Vang | ECON | Unknown | | + + + + + Care Team Providers + +------+ + | Care Vanstone Machine Operator Name | Role | Phone [...] | Center at [facility] [address] | ACNP [address] | | | | | [address] | Ave [place], [place] | | | | | Mailcode: [place] | [address] | | | | | for Health and | | | | | | [facility] 2 | | | | | | [facility] [place] | | | | | | [address] | | | | | | | [...] [address] | | | | | | [place], [place] | | | | | | [address] | | | | | | [phone] | | | | | | | | +--------+ + + + + | 06/27/ | Telephone-S | Pre-operative | | | | 2019 | cheduled | Medicine | | | +--------+ + + + + | 06/30/ | Office | Cardiology | Randell Franks, | | | 2019 | Visit | [address] | | | | | | [place], [place] | | | | | | [address] | | | | | | [phone] | | | | | | | | +--------+ + + + + | 07/08/ | Procedure | Surgery | | | | 2019 | Pass | | | | +--------+ + + + + documented as of this encounter Visit Diagnoses Not on filedocumented in this encounter"
--- OUTSIDE RECORDS SUMMARY | ~2019-05-10 | XMS | Encounter Summary ---
Demographics + + + | Address | [address] | | | [place] [address] | + + + | Home Phone [...] [place], [place] | | | | | [address] | | + + + + + | Ellie Vang | ECON | Unknown | | + + + + + Care Team Providers + +------+ + | Care Extension Professor Name | Role | Phone | [...] the | | | | | | [facility] [address] [facility] | | | | | | [facility] | | | | | | [place], [place] | | | | | | [address] | | | +--------+ + + + [...] | | 2019 | Visit | | [address] | | | | | | [place], [place] | | | | | | [address] | | | | | | [phone] | | | | | | | [...] | | | | [place], [place] | | | | | | [address] | | | | | | [phone] | | | | | | | | +--------+ + + + + | 07/08/ | Procedure | Surgery | | | | 2018 | Pass | | | | +--------+ + + + + documented as of this encounter Visit Diagnoses Not on filedocumented in this encounter"
--- OUTSIDE RECORDS SUMMARY | ~2019-05-10 | XMS | Encounter Summary ---
Demographics + + + | Address | [address] | | | [place] [address] | + + + | Home Phone [...] [place], [place] | | | | | [address] | | + + + + + | Ellie Vang | ECON | Unknown | | + + + + + Care Team Providers + +------+ + | Care Suction Drum Drier Operator Name | Role | Phone | [...] at | | | | | | [facility] | | | | | | [address] | | | | | | Mailcode: OC2L | | | | | | [facility] | | | | | | and Healing, | | | | | | [address] | | | | | | [place], [place] | | | | | | [address] | | | | | | [phone] | | | +--------+ + + + [...] [address] | | | | | | [place], [place] | | | | | | [address] | | | | | | [phone] | | | | | | | [...] | | | | | [place], [place] | | | | | | [address] | | | | | | [phone] | | | | | | | | +--------+ + + + + | 07/08/ | Procedure | Surgery | | | | 2018 | Pass | | | | +--------+ + + + + documented as of this encounter Visit Diagnoses Not on filedocumented in this encounter"
--- OUTSIDE RECORDS SUMMARY | ~2019-05-10 | XMS | Encounter Summary ---
Demographics + + + | Address | [address] | | | [place] [address] | + + + | Home Phone [...] [place], [place] | | | | | [address] | | + + + + + | Ellie Vang | ECON | Unknown | | + + + + + Care Team Providers + +------+ + | Care Digital Media Strategist Name | Role | Phone | [...] | | 2 diabetes | JEAN, | [place], [place] | | | | | mellitus | [place] [address] | [address] | | | | | without | Phone: | Phone: | | | | | complication | [phone] | [phone] | | | | | (HCC) | Fax: | Fax: | | | | | Procedures | [phone] | [phone] | | | | | [place] EST [...] | 2018 | Visit | Preventive at [facility] | [address] | mellitus without | | | | [address] | Ave [place], [place] | complication, with | | | | Mailcode: CH9A | [address] | long-term current | | | | [facility] | [phone] | use of insulin (HCC) | | | | and Healing, | | (Primary Dx); | | | | [address] | | Morbid obesity with | | | | [place], [place] | | BMI of 70 and over, | | | | [address] | | adult (HCC) | | | | [phone] | | | +--------+---------+ + + + [...] 3 Hypoventilation associated with obesity ([facility]) 06/16/2013 Priority: 4 AMARA (obstructive sleep apnea) 04/14/2013 Priority: 4 Overview Note: Cannot tolerate CPAP Severe Morbid obesity ([facility]), BMI 88 11/12/2012 Priority: 4 Overview Note: [...] mellitus type 2 without retinopathy ([facility]) 02/02/2017 Hyperlipidemia 02/02/2017 Ventral hernia without obstruction [...] with insulin therapy ([facility]) 12/27/2014 Abdominal pain 02/07/2014 Migraine headache 12/05/2013 [...] 1 tablet by mouth once daily CALCIUM CRB&NQA-R9-WAL13-GENIS ORAL Take 2 tablets by mouth two [...] jeart failure is manag ed by her hazardous waste material technician and she was seen by the [...] is currently being managed well by her Garment Supervisor with diuretics and main tenance of [...] management of her heart failure by her Garment Supervisor 3) Check A1c, lipids 4) Await bariatric [...] | | 2018 | Visit | | [address] | | | | | | [place], [place] | | | | | | [address] | | | | | | [phone] | | | | | | | [...] | | | | | [place], [place] | | | | | | [address] | | | | | | [phone] | | | | | | | [...] [facility] | [place], [place] | | | SERVICES, LIPID | [address] | [address] | | + + + + + [...] [facility] | | considered for monitoring terminal superintendent glycemic control in patients with: | LABORATORY [...] [facility] | [address] | [place] [address] | | | SERVICES, SPECIAL | PARK [...]
--- OUTSIDE RECORDS SUMMARY | ~2019-05-10 | XMS | Encounter Summary ---
Demographics + + + | Address | [address] | | | [place] [address] | + + + | Home Phone [...] [place], [place] | | | | | [address] | | + + + + + | Ellie Vang | ECON | Unknown | | + + + + + Care Team Providers + +------+ + | Care Felt Dyeing Machine Tender Name | Role | Phone [...] | | 2017 | | Center at [facility] [address] | ACNP [address] | | | | | [address] | Ave [place], [place] | | | | | Mailcode: [place] | [address] | | | | | for Health and | [phone] | | | | | [facility] 2 | | | | | | [place], [place] | | | | | | [address] | | | | | | | [...] | | 2019 | Visit | | [address] | | | | | | [place], [place] | | | | | | [address] | | | | | | [phone] | | | | | | | [...] | | | | | [place], [place] | | | | | | [address] | | | | | | [phone] | | | | | | | | +--------+ + + + + | 07/08/ | Procedure | Surgery | | | | 2018 | Pass | | | | +--------+ + + + + documented as of this encounter Visit Diagnoses Not on filedocumented in this encounter"
--- OUTSIDE RECORDS SUMMARY | ~2019-05-10 | XMS | Encounter Summary ---
Demographics + + + | Address | [address] | | | [place] [address] | + + + | Home Phone [...] [place], [place] | | | | | [address] | | + + + + + | Ellie Vang | ECON | Unknown | | + + + + + Care Team Providers + +------+ + | Care Asp Net Software Developer Name | Role | Phone [...] | | | | [facility] [address] [facility] | | | | | | [facility] | | | | | | [place], [place] | | | | | | [address] | | | +--------+ + + + [...] [place] | | | | | | [address] | | | | | | [phone] | | | | | | | [...] [place] | | | | | | [address] | | | | | | [phone] | | | | | | | | +--------+ + + + + | 07/08/ | Procedure | Surgery | | | | 2019 | Pass | | | | +--------+ + + + + documented as of this encounter Visit Diagnoses Not on filedocumented in this encounter"
--- OUTSIDE RECORDS SUMMARY | ~2019-05-10 | XMS | Encounter Summary ---
Demographics + + + | Address | [address] | | | [place] [address] | + + + | Home Phone [...] [place], [place] | | | | | [address] | | + + + + + | Ellie Vang | ECON | Unknown | | + + + + + Care Team Providers + +------+ + | Care Voting Machine Mechanic Name | Role | Phone | [...] | | Review | | | | [facility] | | | | | | [address] | | | | | | Mailcode: OC2L | | | | | | [facility] | | | | | | and [place], | | | | | | [address] | | | | | | [place], [place] | | | | | | [address] | | | | | | [phone] | | | +--------+ + + + [...] [address] | | | | | | [place], [place] | | | | | | [address] | | | | | | [phone] | | | | | | | [...] | | | | | [place], [place] | | | | | | [address] | | | | | | [phone] | | | | | | | | +--------+ + + + + | 07/08/ | Procedure | Surgery | | | | 2019 | Pass | | | | +--------+ + + + + documented as of this encounter Visit Diagnoses Not on filedocumented in this encounter"
--- OUTSIDE RECORDS SUMMARY | ~2019-05-10 | XMS | Encounter Summary ---
Demographics + + + | Address | [address] | | | [place] [address] | + + + | Home Phone [...] [place], [place] | | | | | [address] | | + + + + + | Ellie Vang | ECON | Unknown | | + + + + + Care Team Providers + +------+ + | Care Crown Pouncer Name | Role | Phone | + [...] | | | | | [facility] [address] | | | | | | [facility] | | | | | | [place], [place] | | | | | | [address] | | | +--------+ + + + [...] [address] | | | | | | [place], [place] | | | | | | [address] | | | | | | [phone] | | | | | | | [...] | | | | | [place], [place] | | | | | | [address] | | | | | | [phone] | | | | | | | | +--------+ + + + + | 07/08/ | Procedure | Surgery | | | | 2019 | Pass | | | | +--------+ + + + + documented as of this encounter Visit Diagnoses Not on filedocumented in this encounter"
--- OUTSIDE RECORDS SUMMARY | ~2019-05-10 | XMS | Encounter Summary ---
Demographics + + + | Address | [address] | | | [place] [address] | + + + | Home Phone [...] [place], [place] | | | | | [address] | | + + + + + | Ellie Vang | ECON | Unknown | | + + + + + Care Team Providers + +------+ + | Care Software Implementation Project Manager Name | Role | Phone [...] | | | | | essential | [address] | | | | | hypertension | [address], | Ave | | | | | Type II or | [address] | [place], [place] | | | | | unspecified | [place], [place] | [address] | | | | | type | [address] | Phone: | | | | | diabetes | Phone: | [phone] | | | | | mellitus | [phone] | Fax: | | | | | without | Fax: | [phone] | | | | | mention of | [phone] | | | | | | complication [...] | 2013 | Visit | Preventive at [facility] | [address] | mellitus (HCC) | | | | [address] | Ave [place], [place] | (Primary Dx) | | | | Mailcode: CH9A | [address] | | | | | [facility] | [phone] | | | | | and [address], | | | | | | [address] | | | | | | [place], [place] | | | | | | [address] | | | | | | [phone] | | | +--------+---------+ + + + [...] Wi ll discuss with Dr. Brian and science education professor her best strategies for meeting weight loss [...] [address] | | | | | | [place], [place] | | | | | | [address] | | | | | | [phone] | | | | | | | [...] [place] | | | | | | [address] | | | | | | [phone] | | | | | | | [...] | + + + + + | [facility] | [address] | [place] [address] | | | SERVICES, SPECIAL | PARK [...]
--- OUTSIDE RECORDS SUMMARY | ~2019-05-10 | XMS | Encounter Summary ---
Demographics + + + | Address | [address] | | | [place] [address] | + + + | Home Phone [...] [place], [place] | | | | | [address] | | + + + + + [...] [place] | | | | | | [address] | [address] | | | | | | [address], | Ave | | | | | | [address] | [place], [place] | | | | | | [place], [place] | [address] | | | | | | [address] | Phone: | | | | | | Phone: | [phone] | | | | | | [phone] | Fax: | | | | | | Fax: | [phone] | | | | | | [phone] | | +--------+--------+ + + + + Encounter Details +--------+---------+ + + + | Date | Type | Department | Care Team | Description | +--------+---------+ + + + | 08/29/ | Office | Cardiology | Randell Franks, | HTN (hypertension) | | 2013 | Visit | Preventive at [facility] | MD [address] | (Primary Dx); 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[place], [place]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 | | | | Mailcode: [facility] | [address] | ([facility]LY [facility]); Morbid | | | | [facility] | [phone] | obesity (HCC) | | | | and Healing, | | | | | | [address] | | | | | | [place], [place] | | | | | | [address] | | | | | | [phone] | | | +--------+---------+ + + + [...] Flannery | | | | | | [place], [place] | | | | | | [address] | | | | | | [phone] | | | | | | | [...] | | | | | [place], [place] | | | | | | [address] | | | | | | [phone] | | | | | | | [...]
--- OUTSIDE RECORDS SUMMARY | ~2019-05-10 | XMS | Encounter Summary ---
Demographics + + + | Address | [address] | | | [place] [address] | + + + | Home Phone [...] [place], [place] | | | | | [address] | | + + + + + | Ellie Vang | ECON | Unknown | | + + + + + Care Team Providers + +------+ + | Care Environmental Analyst Name | Role | Phone | [...] | | Surgery | Diagnoses | | [place], | | | | | Ventral | [place], | MD Jones | | | | | hernia | MD Jones | [address] | | | | | without | [address] | [address] [place] | | | | | obstruction | [address] | Rd [place], | | | | | or gangrene | Rd | [place] | | | | | Procedures | [place], [place] | [address] | | | | | REQUEST TO | [address] | Phone: | | | | | SURGERY | Phone: | [phone] | | | | | SAIL FINISHER HAND | [phone] | Fax: | | | | | | Fax: | [phone] | | | | | | [phone] | | +--------+--------+ + + + + [...] 2019 | Visit | Center at [address] | MD Jones [address] | without obstruction | | | | [address] | [facility] [address] | or gangrene (Primary | | | | Mailcode: Center | [place], [place] | Dx) | | | | for Health and | [address] | | | | | Healing, Building 2 | [phone] | | | | | [place], [place] | | | | | | [address] | | | | | | [phone] | | | +--------+---------+ + + + [...] (1?2 cup) 6.5 Avocado 1?2 fruit 2.1 Rosebud sprouts, cooked 125 mL (1?2 cup) 2.0 Figs, dried 60 mL (1?4 cup) 1.9 Chaves 1 medium 1.8 Sweet Potato, cooked, without [...] 1.3 Eggplant 125 mL (1?2 cup) 1.3 Hardee, with skin 1 medium 1.0-1.3 Peas, green, cooked 125 mL (1?2 cup) 0.8-1.3 Carrot, cooked John 125 mL (1?2 cup) 1?2 fruit 1.1-1.2 0.7-1.1 Grapefruit 1?2 fruit 0.7-1.1 Prunes, dried 3 1.1 Bartolo, with skin 2 fruits 1.1 Apricots, dried [...] Bread, rye 35 g (1 slice) 0.6-1.0 Davie bread crackers 3 crackers 0.9 Raisin bran [...] Soluble Fiber [email or web address] PATIENT SURGERY INFORMATION [facility] General Surgery Office Toll-free: ext [phone] [...] to be completed within [facility]. This call appointment will be scheduled with you by a pipefitter. You will receive a ca ll within [...] ease call the General Surgery Office at [phone] for [id number]. Check-in on the day of surgery is [...] the surgery. Please see the list below, [facility] has a list of products that [...] contact our office . Products Containing Aspirin Yuki-[place], Anacin, Anexsia with Codeine, Andynos, Aspirin, Aspirin suppositories, Ascrip tin, Aspergum, Axotal, B-A-C, Baby Aspirin, Lucila, BC Powder, Bexophene, Buffaprin, Bufferin , Buffinol, Cama-Arthritis Strength, Congespirin, Guatay, Coricidin, Damason, Darvon, Dristan, Kalani-Gesic, Digel, Dolprin #3 Tablets, Donatab, Doxaphene, Duragesic, Easprin, Ecotrin, Emag rin Forte, Emiprin, Emprazil, Equagesic, Equazine M, Excedrin, Fiogesic, Fiorgen PH, Fiorice t, Fiorinal, 4-Way Cold Tablet, Gemnisyn, Indocin, Liquprin, Lortab ASA, Magnaprin, Marnal, Meprobamate, Midol, Momentum, Norgesic, [place], Orphengesic, Pabalate, P-A-C, Percodan, Pre salin, Robaxasil, Roxiprin, Saleto, Salocol, SK-65 Compound, Sine-Aid, Sine-Off, [place], Supac, Talwin Compound, Trigesic, Tolectin, Traiminicin, Vanquish, ZORprin, Zomax Products Containing Ibuprofen Advil, Aleve, Haltran, Medipren, Midol, Motrin, Naproxyn, Nuprin, Rufen Herbal Medications Ephedra: discontinue 24 hours before surgery Garlic: discontinue 7 days prior to surgery Ginkgo: discontinue 36 hours prior to surgery Ginseng: discontinue 7 days prior to surgery Kava: discontinue 24 hours prior to surgery Ten Broeck s Wort: discontinue 5 days prior to surgery Valerian: discontinue several weeks prior to surgery Other Products Which May Promote Bleeding Vitamin E, Gingko Biloba, Marine Fatty Acids, [place]-3 Fish Oil Supplement PRE-OP BATHING/SHOWER INSTRUCTIONS with [...] loss of tissue. Check out the free [place] Quit Line - The Quit Line is open 24 hours a day, seven days a we ek. The Quit Line is a telephone and web-based counseling service to help [place]ians quit us ing tobacco and nicotine products. .QUIT.NOW ( ) or www.quitnow.net/[place] PARKING Parking at the Hospital for patients and visitors is available in the [facility] Parking s tructure located across from the emergency department. Patient parking is available on level 1 and 3. Metered parking is available on the top level. Parking at [facility] is available in the building's parking structure. For additional parking options visit [email or web address]. TRANSPORTATION You will require transportation home on the day of discharge. Pain medications and physical activity restrictions may limit your ability to drive safely. CANCELLING YOUR PROCEDURE Please notify the general surgery office at [phone] as soon as possible should you nee [...] lost 100+ lbs! She last saw the [facility] team in 02/2019, at which time she [...] plans to see an ENT and a insecticide sprayer for her symptoms in the near future. [...] limb 150 cm or less 8 [facility] Past Medical History: Diagnosis Date [...] History Narrative Updated 11/09/15 She lives in [place] with her mother and her sister (also her caregiver) lives in an apa rtment/duplex below. She has 2 grandchildren (age 4 and 7) who live with her daughter and son-in-law Her boyfriend lives in [place] HFpEF, DM2, HTN, Sleep Apnea (unable to [...] here and refer her to our cardiac specialist who also has expertise in physical [...] daily. BELBUCA 600 mcg buccal film CALCIUM CRB&ZTJ-E1-TQE80-GENIS ORAL Take 2 tablets by mouth two [...] obesity s/p laparoscopic anteocolic RYGB (03/01/2018); [facility] e this operation, she has lost [...] by Gadiel Yi . JONES TIWARI MD [facility] [address] Mailcode: [place] [address] I spent 31 minutes with [...] Flannery | | | | | | [place] | | | | | | [address] | | | | | | [phone] | | | | | | | [...] | | | | | [place] [address], [place] | | | | | | [address] | | | | | | [phone] | | | | | | | [...]
--- OUTSIDE RECORDS SUMMARY | ~2019-05-10 | XMS | Encounter Summary ---
Demographics + + + | Address | [address] | | | [place] [address] | + + + | Home Phone [...] [place], [place] | | | | | [address] | | + + + + + | Ellie Vang | ECON | Unknown | | + + + + + Care Team Providers + +------+ + | Care Regulatory Technician Name | Role | Phone | + +------+ + | Fadi Goodrich DO | PCP | | + +------+ + Encounter Details +--------+ + + + + | Date | Type | Department | Care Team | Description | +--------+ + + + + | 10/19/ | Abstract | Digestive Health | Clinic, Surgery | | | 2017 | | [place] at [facility] [address] | | | | | | [address] | | | | | | Mailcode: [place] | | | | | | [facility] Health and | | | | | | [facility] 2 | | | | | | [place], [place] | | | | | | [address] | | | | | | [phone] | | | +--------+ + + + [...] Flannery | | | | | | [place], [place] | | | | | | [address] | | | | | | [phone] | | | | | | | | +--------+ + + + + | 06/27/ | Telephone-S | Pre-operative | | | | 2019 | cheduled | Medicine | | | +--------+ + + + + | 06/30/ | Office | Cardiology | Randell Franks, | | | 2018 | Visit | | [address] | | | | | | [place], [place] | | | | | | [address] | | | | | | [phone] | | | | | | | | +--------+ + + + + | 07/08/ | Procedure | Surgery | | | | 2018 | Pass | | | | +--------+ + + + + documented as of this encounter Visit Diagnoses Not on filedocumented in this encounter"
--- OUTSIDE RECORDS SUMMARY | ~2019-05-10 | XMS | Encounter Summary ---
Demographics + + + | Address | [address] | | | [place] [address] | + + + | Home Phone [...] [place], [place] | | | | | [address] | | + + + + + | Ellie Vang | ECON | Unknown | | + + + + + Care Team Providers + +------+ + | Care Rn Neurology Name | Role | Phone | + +------+ + | Kenyatta Cardenas MD | PCP | | + +------+ + Encounter Details +--------+ + + + + | Date | Type | Department | Care Team | Description | +--------+ + + + + | 03/10/ | Pharmacy | [facility] | | | | 2018 | Visit | & [facility] | | | | | | [address] | | | | | | Mailcode: Center | | | | | | [facility] and | | | | | | [facility] 1 | | | | | | [place], [place] | | | | | | [address] | | | | | | [phone] | | | +--------+ + + + [...] Flannery | | | | | | [place], [place] | | | | | | [address] | | | | | | [phone] | | | | | | | [...] | | | | | [place] [address], [place] | | | | | | [address] | | | | | | [phone] | | | | | | | | +--------+ + + + + | 07/08/ | Procedure | Surgery | | | | 2018 | Pass | | | | +--------+ + + + + documented as of this encounter Visit Diagnoses Not on filedocumented in this encounter"
--- OUTSIDE RECORDS SUMMARY | ~2019-05-10 | XMS | Encounter Summary ---
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 ASSISTANT | | hypertension | [address] | [address] | | | | | Right | [address] | [address] | | | | | heart | [place], [place] | Mailcode: | | | | | failure | [address] | Center for | | | | | ([facility]) Type | Phone: | Health and | | | | | 2 diabetes | [phone] | Healing, | | | | | mellitus | Fax: | Building 2 | | | | | without | [phone] | [place], [place] | | | | | complication | | [address] | | | | | , with | | Phone: | | | | | long-term | | | | | | | current use | | Fax: | | | | | of insulin | | [phone] | | | | | ([facility] [...] | Visit | Center at [facility] [address] | [address] | BMI of 70 and over, | | | | [address] | [place], [place] | adult ([facility]) (Primary | | | | Mailcode: Center | [address] | Dx); Diabetes | | | | for Server Density and | [phone] | mellitus type 2 | | | | [facility], Building 2 | | without retinopathy | | | | [place], [place] | | ([facility]); | | | | [address] | | Intertriginous | | | | [phone] | | candidiasis; PCOS | | | | | | (polycystic ovarian | | | | | | syndrome); AMARA | | | | | | treated with BiPAP; | | | | | | Chronic diastolic | | | | | | heart failure ([facility]); | | | | | | Essential [...] 10/30/2017 10:00 AM PDTPlease visit with our [facility] Director Of Medical Services (RD) for instructions about your Bariatric diet, assistance with calorie c ounts, tips and tricks for working with your diet restrictions, and recipes after bariatric surgery. Daily yogurt; even just 1 tablespoon twice a day will provide enough probiotics to optimize digestion. Try to use a high-quality, probiotic-dense yogurt (eg Zaria's, Kobifield, Stacie lala Kefir, Abrasive Wheel Molder Duke's Equatorial Guinean Yogurt). Remember to chew your food well, [...] to the healing stomach. There are also jail complications of poor wound healing and gastric [...] 1 tablet by mouth once daily CALCIUM CRB&XQO-X3-GXJ32-GENIS ORAL Take 2 tablets by mouth two [...] History Narrative Updated 11/09/15 She lives in [place] with her mother and her sister (also her caregiver) lives in an artment/duplex below. She has 2 grandchildren (age 4 and 7) who live with her daughter and son-in-law Her boyfriend lives in [place] HFpEF, DM2, HTN, Sleep Apnea (unable to [...] program here and refer her to our soil fertility specialist who also has expertise in physical [...] and may approach 5%. We reviewed the [facility] consent form. We discussed that [...] Flannery | | | | | | [place], [place] | | | | | | [address] | | | | | | [phone] | | | | | | | [...] | | | | | [address] [place], [place] | | | | | | [address] | | | | | | [phone] | | | | | | | [...] | |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 ([facility]) | | | | | | AMARA treated with | | | | | | BiPAP Chronic | | | | | | diastolic heart | | | | | | failure ([facility]) | | | | | | Essential [...] | | | | | determined by [facility] | | | | | | Laboratories. See | | | | | | Compliance Statement B: | | | | | | [employer]formed | | | | | | by [employer],[address] | | | | | | [facility],[place] | | | | | | [address] | | | | | | [phone].[employer]. | | | | | | lds [...] [facility] | [address] | [place], [place] | | | [facility] | | [address] | | + + + + + [...] [facility] | [address] | [place] [address] | | | SERVICES, CORE | PARK [...] [facility] | [address] | [place] [address] | | | SERVICES, CORE | PARK [...] [facility] | [address] | [place] [address] | | | SERVICES, CORE | PARK [...] | + + + + + | [facility] | [address] | [place] [address] | | | LYDIA RANGEL | CLARENCE [...] [facility] | [address] | [place] [address] | | | SERVICES, LYDIA | CLARENCE [...] [facility] | [address] | [place] [address] | | | CLAIRE, CORE | [address] | | | + + + + + documented in this encounter Visit Diagnoses + + | Diagnosis | + + | Morbid obesity with BMI of 70 and over, adult ([facility]) - Primary | + + | Diabetes mellitus type 2 without retinopathy ([facility]) Type II or unspecified type | | [...]
--- OUTSIDE RECORDS SUMMARY | ~2019-05-10 | XMS | Encounter Summary ---
Demographics + + + | Address | [address] | | | [place] [address] | + + + | Home Phone [...] [place], [place] | | | | | [address] | | + + + + + | lElie Vang | ECON | Unknown | | + + + + + Care Team Providers + +------+ + | Care Nursing Officer Name | Role | Phone | [...] [place] | | | | | | [address] | | | | | | [phone] | | | | | | | [...] | | | | | [place], [place] | | | | | | [address] | | | | | | [phone] | | | | | | | | +--------+ + + + + | 07/08/ | Procedure | Surgery | | | | 2019 | Pass | | | | +--------+ + + + + documented as of this encounter Visit Diagnoses Not on filedocumented in this encounter"
--- OUTSIDE RECORDS SUMMARY | ~2019-05-10 | XMS | Encounter Summary ---
Demographics + + + | Address | [address] | | | [place] [address] | + + + | Home Phone [...] [place], [place] | | | | | [address] | | + + + + + | Ellie Vang | ECON | Unknown | | + + + + + Care Team Providers + +------+ + | Care Industrial Roofer Helper Name | Role | Phone [...] | | 2018 | | Preventive at [facility] | [address] | (Phentermine 37.5mg) | | | | [address] | [place], [place] | | | | | Mailcode: EARL | [address] | | | | | [facility] | [phone] | | | | | and [address], | | | | | | Building [address] | | | | | | [place], [place] | | | | | | [address] | | | | | | [phone] | | | +--------+ + + + [...] Flannery | | | | | | [place], [place] | | | | | | [address] | | | | | | [phone] | | | | | | | | +--------+ + + + + | 06/27/ | Telephone-S | Pre-operative | | | | 2018 | cheduled | Medicine | | | +--------+ + + + + | 06/30/ | Office | Cardiology | Randell Franks, | | | 2018 | Visit | | [address] | | | | | | [place], [place] | | | | | | [address] | | | | | | [phone] | | | | | | | | +--------+ + + + + | 07/08/ | Procedure | Surgery | | | | 2019 | Pass | | | | +--------+ + + + + documented as of this encounter Visit Diagnoses Not on filedocumented in this encounter"
--- OUTSIDE RECORDS SUMMARY | ~2019-05-10 | XMS | Encounter Summary ---
Demographics + + + | Address | [address] | | | [place] [address] | + + + | Home Phone [...] [place], [place] | | | | | [address] | | + + + + + | Ellie Vang | ECON | Unknown | | + + + + + Care Team Providers + +------+ + | Care Barrel Coater Name | Role | Phone | + +------+ + | Fadi Goodrich DO | PCP | | + +------+ + Encounter Details +--------+ + + + + | Date | Type | Department | Care Team | Description | +--------+ + + + + | 07/19/ | Abstract | Digestive Health | Kathy Feldman, | | | 2012 | | Center at [facility] [address] | SHINGLES ROOFER HELPER [address] | | | | | [address] | [facility] [address] | | | | | Mailcode: Center | [address], [place] | | | | | [facility] Health and | [address] | | | | | [facility] 2 | [phone] | | | | | [place], [place] | | | | | | [address] | | | | | | [phone] | | | +--------+ + + + [...] Flannery | | | | | | [place], [place] | | | | | | [address] | | | | | | [phone] | | | | | | | [...] | | | | | [place], [place] | | | | | | [address] | | | | | | [phone] | | | | | | | | +--------+ + + + + | 07/08/ | Procedure | Surgery | | | | 2019 | Pass | | | | +--------+ + + + + documented as of this encounter Visit Diagnoses Not on filedocumented in this encounter"
--- OUTSIDE RECORDS SUMMARY | ~2019-05-10 | XMS | Encounter Summary ---
Demographics + + + | Address | [address] | | | [place] [address] | + + + | Home Phone [...] [place], [place] | | | | | [address] | | + + + + + | Ellie Vang | ECON | Unknown | | + + + + + Care Team Providers + +------+ + | Care Dimension Quarry Supervisor Name | Role | Phone [...] Encounter, Provider, | | | | | [facility] | MD [address] | | | | | [address] | [place] [address] | | | | | Mailcode: OC2L | | | | | | [facility] | | | | | | and Healing, | | | | | | Building 2 | | | | | | [place], [place] | | | | | | [address] | | | | | | [phone] | | | +--------+ + + + [...] Flannery | | | | | | [place], [place] | | | | | | [address] | | | | | | [phone] | | | | | | | [...] | | | | | [place], [place] | | | | | | [address] | | | | | | [phone] | | | | | | | [...] + | MRN: | [facility] | | [id number] Date: 04/07/2019Patient Name: Elzbieta Curtis #: | ENDOSCOPY | | [id number] of : 1975CSN: [id number] Type: | | | AmbulatoryRoom: Endo 5Procedure: Upper GI | | | endoscopyIndications: Generalized abdominal pain, Nausea | | | with vomitingProviders: TAL LUND MD | | | (Doctor), BERNARDO BERNARD RN (Nurse), | | | EREN SLATER (Assistant Operations Manager)Referring MD: SYLVIA Kilpatrick | | | Mela [...] | | | The [employer] [id number] Endoscope #[id number] | | | was introduced through the [...]
--- OUTSIDE RECORDS SUMMARY | ~2019-05-10 | XMS | Encounter Summary ---
Demographics + + + | Address | [address] | | | [place] [address] | + + + | Home Phone [...] [place], [place] | | | | | [address] | | + + + + + | Ellie Vang | ECON | Unknown | | + + + + + Care Team Providers + +------+ + | Care Substance Abuse Nurse Name | Role | Phone | + +------+ + | aFdi Goodrich DO | PCP | | + +------+ + Encounter Details +--------+------+ + + + | Date | Type | Department | Care Team | Description | +--------+------+ + + + | 12/05/ | Lab | Laboratory at [facility] | | Type 2 diabetes | | 2013 | | [address] | | mellitus (HCC) | | | | [place], [place] | | | | | | [address] | | | | | | [phone] | | | +--------+------+ + + + [...] Flannery | | | | | | [place], [place] | | | | | | [address] | | | | | | [phone] | | | | | | | | +--------+ + + + + | 06/27/ | Telephone-S | Pre-operative | | | | 2019 | cheduled | Medicine | | | +--------+ + + + + | 06/30/ | Office | Cardiology | Randell Franks, | | | 2018 | Visit | [address] | | | | | | [address] [place], [place] | | | | | | [address] | | | | | | [phone] | | | | | | | [...] | + + + + + | [facility] | [address] | [place] [address] | | | SERVICES, SPECIAL | CLARENCE [...]
--- OUTSIDE RECORDS SUMMARY | ~2019-05-10 | XMS | Encounter Summary ---
Demographics + + + | Address | [address] | | | [place] [address] | + + + | Home Phone [...] [place], [place] | | | | | [address] | | + + + + + | Ellie Vang | ECON | Unknown | | + + + + + Care Team Providers + +------+ + | Care Financial Sales Assistant Name | Role | Phone [...] [id number] | | | | | | [facility] | | | | | | [place], [place] | | | | | | [address] | | | | | | [phone] | | | +--------+ + + + [...] | | | | | | [place], [place] | | | | | | [address] | | | | | | [phone] | | | | | | | [...] | | | | | [place], [place] | | | | | | [address] | | | | | | [phone] | | | | | | | | +--------+ + + + + | 07/08/ | Procedure | Surgery | | | | 2018 | Pass | | | | +--------+ + + + + documented as of this encounter Visit Diagnoses Not on filedocumented in this encounter"
--- OUTSIDE RECORDS SUMMARY | ~2019-05-10 | XMS | Encounter Summary ---
Demographics + + + | Address | [address] | | | [place] [address] | + + + | Home Phone [...] [place], [place] | | | | | [address] | | + + + + + | Ellie Vang | ECON | Unknown | | + + + + + Care Team Providers + +------+ + | Care Video Presentation Operator Name | Role | Phone | [...] [place] | | | | | | [address] | | | | | | [phone] | | | | | | | [...] [place] | | | | | | [address] | | | | | | [phone] | | | | | | | | +--------+ + + + + | 07/08/ | Procedure | Surgery | | | | 2019 | Pass | | | | +--------+ + + + + documented as of this encounter Visit Diagnoses Not on filedocumented in this encounter"
--- OUTSIDE RECORDS SUMMARY | ~2019-05-10 | XMS | Encounter Summary ---
Demographics + + + | Address | [address] | | | [place] [address] | + + + | Home Phone [...] [place], [place] | | | | | [address] | | + + + + + | Ellie Vang | ECON | Unknown | | + + + + + Care Team Providers + +------+ + | Care Armed Security Officer Name | Role | Phone [...] | | 2015 | | Preventive at [facility] | [address] | (phentermine 37.5 mg | | | | [address] | [facility] [place] | ) | | | | Mailcode: LAT[place]LL | [address] | | | | | [facility] | [phone] | | | | | and [address], | | | | | | [address] | | | | | | [place], [place] | | | | | | [address] | | | | | | [phone] | | | +--------+--------+ + + + [...] Flannery | | | | | | [place], [place] | | | | | | [address] | | | | | | [phone] | | | | | | | [...] | | | | | [place], [place] | | | | | | [address] | | | | | | [phone] | | | | | | | | +--------+ + + + + | 07/08/ | Procedure | Surgery | | | | 2019 | Pass | | | | +--------+ + + + + documented as of this encounter Visit Diagnoses Not on filedocumented in this encounter"
--- OUTSIDE RECORDS SUMMARY | ~2019-05-10 | XMS | Clinical Summary ---
Demographics + + + | Address | [address] | | | [place] [address] | + + + | Home Phone [...] Author + + + | Author | [facility] | + + + | Organization | [facility] | + [...] [place], [place] | | | | | [address] | | + + + + + | Ellie Vang | ECON | Unknown | | + + + + + Care Team Providers + +------+ + | Care Track Helper Name | Role | Phone | + +------+ + | Kenyatta Cardenas MD | PCP | | + +------+ + Source Comments [facility] InPatient.[facility] Allergies + + + + [...] 0 | | | Activ | | CRB&DPA-L7-PBP28-GEN | mouth two times | | | [...] + + + + | 03/02/ | Marble Mason | Surgery | Keren Allen, | | [...] Flannery | | | | | | [place] | | | | | | [address] | | | | | | [phone] | | | | | | | [...] [place] | | | | | | [address] | | | | | | [phone] | | | | | | | [...] - | | | | | | /[id number] | | [id number]: Qty: 1 on | | | | | | 525 | | 03/01/2018 by Ion Pandey | | | | | | | | MD Vinicius at [facility] | | | [...] - | | | | | | /[id number] | | [id number]: Qty: 1 on | | | | | | 173 | | 03/01/2018 by Ion Pandey | | | | | | | | MD Vinicius at [facility] | | | [...] + | MRN: | [facility] | | [id number] Date: 04/07/2019Patient Name: Elzbieta Curtis #: | ENDOSCOPY | | [id number] of : 1975CSN: [id number] Type: | | | AmbulatoryRoom: Endo 5Procedure: Upper GI | | | endoscopyIndications: Generalized abdominal pain, Nausea | | | with vomitingProviders: TAL MCNEIL MD | | | (Doctor), BERNARDO BERNARD RN (Nurse), | | | GENECREST SLATER (College Archivist)Referring MD: KEREN Kilpatrick | | | RASTA [...] | | | The Olympus [id number] Endoscope #[id number] | | | was introduced through the [...] Note | + + | Service Account, SportsP[employer]uit Res In Interface - 03/22/2019 1:04 PM [...] CENTER, [facility] | [address] | [place] [address] | | | SERVICES, LYDIA | CLARENCE [...] | | | | | determined by [facility] | | | | | | Laboratories. See | | | | | | Compliance Statement B: | | | | | | appEatIT.CrestHire/CSPerformed | | | | | | by [employer],[address] | | | | | | [address] [place], [place] | | | | | | [address] | | | | | | [phone].appEatIT. | | | | | | comIsmael [...] | UNIV PTH - INTFC | | [address] | | + + + + + [...] CENTER, [facility] | [address] | [place] [address] | | | SERVICES, CORE | CLARENCE [...] | + + + + + | [facility] | [address] | [place] [address] | | | SERVICES, CORE | CLARENCE [...] | | | | | determined by [facility] | | | | | | Laboratories. See | | | | | | Compliance Statement B: | | | | | | appEatIT.CrestHire/CSPerformed | | | | | | by [employer],[address] | | | | | | [facility] | | | | | | [address] | | | | | | [phone].3D Biomatrixlab. | | | | | | Ismael [...] [facility] | [address] | [place], [place] | | | UNIV PTH - INTFC | | [address] | | + + + + + [...] [facility] | | | (YEN NOAH) | [facility],[address] | | REG UNIV | | | SERUM | [facility] | | PTH - INTFC | | | | [address] | | | | | | [phone].3D Biomatrixlab. | | | | | | Ismael [...] B: | | | | | | appEatIT.CrestHire/CS | | | | + + + [...] | UNIV PTH - INTFC | | [address] | | + + + + + [...] INTFC | | | | determined by [facility] | | | | | | [employer]. See | | | | | | Compliance Statement B: | | | | | | appEatIT.CrestHire/CSPerformed | | | | | | by [employer],[address] | | | | | | [address] [facility] | | | | | | [address] | | | | | | [phone].appEatIT. | | | | | | comIsmael [...] | UNIV PTH - INTFC | | [address] | | + + + + + [...] [facility] | [address] | [place] [address] | | | SERVICES, SPECIAL | PARK [...] MDRD equation recommended by the National | [facility] | | Kidney Disease [...] CENTER, [facility] | [address] | [place] [address] | | | SERVICES, CORE | PARK [...] B: | | | | | | appEatIT.CrestHire/CSPerformed | | | | | | by [employer],[address] | | | | | | Nat[address], [facility] | | | | | | [address] | | | | | | [phone].3D Biomatrixlab. | | | | | | comIsmael [...] | UNIV PTH - INTFC | | [address] | | + + + + + [...] | + + + + + | [facility] | [address] | [place] [address] | | | LYDIA RANGEL | CLARENCE [...] [facility] | [address] | [place] [address] | | | SERVICES, CORE | PARK [...] | + + + + + | [facility] | [address] | [place] [address] | | | SERVICES, CORE | CLARENCE [...] | + + + + + | K[facility] [employer] | [address] | [place] [address] | | | SERVICES, CORE | CLARENCE [...] | | | | | determined by [facility] | | | | | | Laboratories. See | | | | | | Compliance Statement B: | | | | | | appEatIT.com/CSPerformed | | | | | | by [facility],[address] | | | | | | [address]arson [facility] | | | | | | [address] | | | | | | [phone].[phone] Biomatrixlab. | | | | | | comIsmael [...] | UNIV PTH - INTFC | | [address] | | + + + + + [...] | | | + +--------+ +--------+-------+---------+--------+ | PUBLIC HEALTH ANALYST MEDICAID | PUBLIC HEALTH ANALYST | [id number] | | | | Medica [...] mireya | | | 3 (Home) | [address] | + +--------+ +--------+ + + Advance [...]
--- OUTSIDE RECORDS SUMMARY | ~2019-05-10 | XMS | Encounter Summary ---
Demographics + + + | Address | [address] | | | [place] [address] | + + + | Home Phone [...] [place], [place] | | | | | [address] | | + + + + + | Ellie Vang | ECON | Unknown | | + + + + + Care Team Providers + +------+ + | Care Quarter Trimmer Name | Role | Phone | [...] OF [facility] [address] | MAJOR ACCOUNT REPRESENTATIVE [address] | | | | | [address] | [facility] [address] | | | | | Mailcode: Center | [place], [place] | | | | | [facility] and | [address] | | | | | [facility] 2 | [phone] | | | | | [place], [place] | | | | | | [address] | | | | | | [phone] | | | +--------+ + + + [...] Flannery | | | | | | [place], [place] | | | | | | [address] | | | | | | [phone] | | | | | | | | +--------+ + + + + | 06/27/ | Telephone-S | Pre-operative | | | | 2019 | cheduled | Medicine | | | +--------+ + + + + | 06/30/ | Office | Cardiology | Randell Franks, | | | 2019 | Visit | | [address] | | | | | | [place], [place] | | | | | | [address] | | | | | | [phone] | | | | | | | | +--------+ + + + + | 07/08/ | Procedure | Surgery | | | | 2018 | Pass | | | | +--------+ + + + + documented as of this encounter Visit Diagnoses Not on filedocumented in this encounter"
--- OUTSIDE RECORDS SUMMARY | ~2019-05-10 | XMS | Encounter Summary ---
Demographics + + + | Address | [address] | | | [place] [address] | + + + | Home Phone [...] [place], [place] | | | | | [address] | | + + + + + | Ellie Vang | ECON | Unknown | | + + + + + Care Team Providers + +------+ + | Care Automotive Upholsterer Name | Role | Phone | [...] | | | | | Procedures | [place], [place] | [place], [place] | | | | | CONSULT TO | [address] | [address] | | | | | CAR | Phone: | Phone: | | | | | PREVENTATIVE | [phone] | [phone] | | | | | [facility] - | Fax: | Fax: | | | | | LIPIDS | [phone] | [phone] | +--------+--------+ + + + + Encounter Details +--------+---------+ + + + | Date | Type | Department | Care Team | Description | +--------+---------+ + + + | 09/11/ | Office | Cardiology | Olga Lidia Montanez, | 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 | Visit | Preventive at [facility] | [address] | BMI of 70 and over, | | | | [address] | [address] | adult (HCC) (Primary | | | | Mailcode: CH9A | [place], [place] | Dx) | | | | [facility] | [address] | | | | | and Healing, | | | | | | Building [address] | | | | | | [place], [place] | | | | | | [address] | | | | | | [phone] | | | +--------+---------+ + + + [...] Olga Lidia Montanez RD, LD [facility] Bariatric department (to reschedule classes): [phone] Goals: 1. Try to stop buying Pop-Tarts 2. Replace afternoon snack (think of this as lunch) with vegetables or fruit -cucumbers, carrots, broccoli, cauliflower, etc. -try making ranch dip w/ nonfat plain yogurt (regular or Samoan) (or mix yogurt w/ salsa; o r chipotle hot sauce & flandreau juice) 3. Snack ideas: -fruit -vegetables (with hummus or yogurt dip) -Samoan yogurt - light (have w/ fruit if you're still hungry) -applesauce - unsweetened, w/ lowfat string cheese -1/4 cup nuts -lowfat string cheese -low-fat or non-fat cottage cheese w/ tomatoes 4. Aim for 60-80 grams of protein a day (see list) 5. Add Samoan yogurt to breakfast Heart Protection Kitchen from [facility] Healthy eating made simple. What: FREE heart-healthy cooking demonstrations led by guest reimbursement representative and nutrition experts. Samples are provided! Where: [facility] ([facility]), September, 2nd floor teaching kitchen When: All classes from 11:00am-12:00pm ? October 12 (led by Dr. Paulino Carreno MD) Please contact Keerthi Boyer at [phone] or email at [email or web address] for information on upcoming classes and to register. Space is limited - reserve your seat today! Want more info on what to eat? Watch the Dextrys video, "Healthy Eating 101," at [email or web address] documented in this encounter Progress Notes Olga Lidia Montanez RD - 09/11/2017 2:30 PM PSTFormatting of this note might be different fro m the original. [facility] of Preventive Cardiology, Nutrition Consultation Referring provider: Dr. Randell Franks MD Referring diagnosis: obesity, HF, DM2 Visit type: Initial; oywu-qp-gdda visit with patient Questions/Information desired today: Hoping [...] Still has bariatric notebooks at home. Per AllClear IDbarron message from Dr. Pandey 09/10/17: "Just tell [...] & 1% milk; occ w/ applesauce or Samoan yogurt No L S (3pm): pop-tart or [...] too expensive. Occ fruit bowls from [facility]. Vegetables: every day w/ dinner - usually [...] in PT 2x/week for bariatric program (in [place]) UBW: 385-391 lbs Max weight: 529 lbs Weight history: lost from 495 lbs to 383 lbs in 6952-9970 on Atkins diet ANTHROPOMETRICS: Height: Ht Readings from Last 1 Encounters: 09/11/17 1.549 m (5' 1") Weight: Wt Readings from Last 1 Encounters: 09/11/17 176.5 kg (389 lb 3.2 oz) 11/28/16 179.443 kg (395 lb 10 oz) Body mass index is 73.54 kg/m. Weight tire changer the past year: 6 lb wt [...] of protein a day - add light Samoan yogurt to breakfast; include lean protein with PM snack/lunch 3. D/c carbonated beverages (e.g., diet soda); replace with water, Crystal Light, diet deca f tea, or other calorie-free still beverage Contact information was provided; call or send Think Realtime message to dietitian with any questi ons. [...] Flannery | | | | | | [place], [place] | | | | | | [address] | | | | | | [phone] | | | | | | | | +--------+ + + + + | 06/27/ | Telephone-S | Pre-operative | | | | 2019 | cheduled | Medicine | | | +--------+ + + + + | 06/30/ | Office | Cardiology | Randell rFanks, | | | 2018 | Visit | | [address] | | | | | | [place], [place] | | | | | | [address] | | | | | | [phone] | | | | | | | [...]
--- OUTSIDE RECORDS SUMMARY | ~2019-05-10 | XMS | Encounter Summary ---
Demographics + + + | Address | [address] | | | [place] [address] | + + + | Home Phone [...] Author | [facility] | | | and Jeffana | + + + | Organization | [facility] | [...] Providers + +------+ + | Care Recruitment Director Name | Role | Phone | [...] RIZVI F | | | | | [place], [place] | [place] [address] | | | | | [address] | [phone] | | | | | [phone] | | | +--------+ + + + [...] 0.61 m/s | | | MV Dec Thayer: 2.43 m/s2 MV DecT: 247.51 ms MV E Jefrfey: | | | 0.60 m/s MV E/A Ratio: 0.98 MV PHT: 71.78 ms MVA By | | | PHT: 3.06 cm2 Septal e': 0.06 m/s Septal E/e': 9.54 | | | Lateral e': 0.10 m/s Lateral E/e': 5.84 RAP: 5 mmHg RV | | | s': 0.11 m/s Weatherization Administrator: JESSICA Authenticated by: Darryl | | | [facility] Report Date/Time: 02-22-2019 20:8:36 | [...] cmLVIDd: 4.70 cmLVPWd: 0.79 cmLVOT Area: 3.58 ir8SERM Diam: 2.13 cm%FS: 39.25 | | %EF(Teich): [...] | Index (A-L): 14.72 ml/m2LAAs A2C: 10.03 [id number] A-L A2C: 22.69 mlLALs A2C: 3.76 | | cmLAAs A4C: 13.41 ah5KSIYZ A-L A4C: 36.80 mlLALs A4C: 4.14 cmRAAs: 11.18 | | sr6EESMM A-L: 22.84 mlRAESV MOD: 22.10 mlRALs: 4.64 cmTAPSE: 2.04 cmAV maxPG: | | 6.55 mmHgAV meanP.52 mmHgAV Vmax: 1.27 m/Genesis Vmean: 0.88 m/Genesis VTI: 26.50 | | cmAVA Vmax: 2.49 cm2AVA (VTI): 2.39 kv3TGHN Vmax: 0.00 cm2/m2AVAI (VTI): 0.00 | | cm2/m2LVOT maxP.17 mmHgLVOT meanP.82 mmHgLVSI Dopp: 30.83 ml/m2LVSV Dopp: | | 63.52 mlLVOT Vmax: 0.89 m/sLVOT Vmean: 0.65 m/sLVOT VTI: 17.71 cmMV A Jeffrey: | | 0.61 m/sMV Dec Thayer: 2.43 m/s2MV DecT: 247.51 msMV E Jeffrey: 0.60 m/sMV E/A Ratio: | | 0.98MV PHT: 71.78 msMVA By PHT: 3.06 mf5Mrntiw e': 0.06 m/sSeptal E/e': | | 9.54Lateral e': 0.10 m/sLateral E/e': 5.84RAP: 5 mmHgRV s': 0.11 m/s | | Weatherization Administrator: DHAuthenticated by: Darryl Hess Date/Time: 02-22-2019 20:8:36 [...] A Jeffrey: 0.61 m/s | |MV Dec Thayer: 2.43 m/s2 | |MV DecT: 247.51 ms | |MV E Jeffrey: 0.60 m/s | |MV E/A Ratio: 0.98 | |MV PHT: 71.78 ms | |MVA By PHT: 3.06 cm2 | |Septal e': 0.06 m/s | |Septal E/e': 9.54 | |Lateral e': 0.10 m/s | |Lateral E/e': 5.84 | |RAP: 5 mmHg | |RV s': 0.11 m/s | | | |Weatherization Administrator: JESSICA | |Authenticated by: Darryl Merrill | [...]
--- OUTSIDE RECORDS SUMMARY | ~2019-05-10 | XMS | Encounter Summary ---
Demographics + + + | Address | [address] | | | [place] [address] | + + + | Home Phone [...] + | Katalina Padilla | ECON | [address] | | | | | [place], [place] | | | | | [address] | | + + + + + | Ellie Vang | ECON | Unknown | | + + + + + Care Team Providers + +------+ + | Care Atmospheric Scientist Name | Role | Phone | [...] | [address] | [address] | | | | | [place], [place] | [address] | | | 03/03/ | | [address] | [place], [place] | | | 2014 | | [phone] | [address] | | | | | | [phone] | | | | | | | [...] Gabo Langston MD R-1 Admitting Physician: Dr. Carrilol 03/03/2015, 1:36 PM Admission Diagnosis: incisional hernia Admission Date: 2015 Discharge Date: 03 Mar 2015 Diagnoses Principal Final Diagnosis: 1. Incisional hernia Additional Diagnoses: Procedures 1. Primary incisional hernia repair and scar revision Brief Hospital Course Mrs. Romero is a 40 yo F with an incisional hernia at a surgery port site who was transferre d to [facility] for concern of an incarcerated [...] mouth once daily. , Historical Med CALCIUM CRB&PTQ-G6-OWO38-GENIS ORAL Take 1 tablet by mouth two [...] 10:40 AM Randell Franks Cardiology Preventive at [facility] [phone] Cardiology 04/09/2015 1:00 PM Egs Ppv Tra Trauma Emergency General Surgery at [facility] [phone] TRAUMA CENTE Outstanding labs/studies: None Discharging Physician: GABO LANGSTON MD Attending Physician: Dr. Cantu PCP: Fadi Goodrich DO Signed: GABO LANGSTON MD Pager #[phone] Surgical Load Planner [facility] Associated attestation - Tye Carrillo DO - 03/12/2015 9:12 AM PDTAttending: I discussed this patient with the resident and agree with the assessment and plan as outlin ed in this note and participated in the planning of care. Tye Carrillo DO, MBA, FACS Division of Trauma, Critical Care & Acute Care Surgery [facility] [phone] documented in this encounter Medications at Time of Discharge + + + +---------+--------+ + | Medication | Sig | Dispensed | Refills | Start | End Date | | | | | | Date | | + + + +---------+--------+ + | CALCIUM | Take 2 tablets by | | 0 | | | | CRB&NSB-E8-FEQ39-GEN | mouth two times | | | [...] might be differ ent from the original. [facility] DEPARTMENT OF SURGERY EMERGENCY [...] with known ventral hernias transferred to [facility] for surgical managem ent of ventral hernia, now s/p repair. Post surgical pain: -patient ready for d/c, discussed f/u. Patient lives far away and has other appointments at [facility]. Will attempt to coordinate appointments. Discharge Plan: D/c today RAGADALIDN V SIDDHARTHAN, MD Pager #[phone] Surgical Load Planner [facility] Salomón William Md [...] kn own ventral hernias transferred to [facility] for surgical treatment of suspected [...] with known ventral hernias transferred to [facility] for surgical managem ent of [...] will be robel ing her home to [place], [place]. CALVIN ROMERO MD PGY-1 Anesthesiology Pager: [phone] [facility] A [address] [phone] Karthik Oneill MD - 03/02/2015 8:26 AM [id number] Calvin William Md - 03/01/2015 5:34 PM PDT Brief Post Operative Note: 40 F PMH morbid obesity (BMI 71 today), DM2, depression, GERD, h/o stroke at age 18, and kn own ventral hernias transferred to [facility] for surgical treatment of incarcerated [...] control CALVIN ROMERO MD PGY-1 Anesthesiology Pager: [phone] signed by Calvin Romero Md at 03/01/2015 [...] Flannery | | | | | | [place], [place] | | | | | | [address] | | | | | | [phone] | | | | | | | | +--------+ + + + + | 06/27/ | Telephone-S | Pre-operative | | | | 2019 | cheduled | Medicine | | | +--------+ + + + + | 06/30/ | Office | Cardiology | Randell Franks, | | | 2019 | Visit | | [address] | | | | | | [place], [place] | | | | | | [address] | | | | | | [phone] | | | | | | | [...] | | Attending Surgeon: Shahid Cantu MD Peeler Operator(s): Howie Angeles MD, R5 | | [...] 03/02/2015 08:25:39DT: 03/02/2015 09:15:57Job #: | | [id number] | | | |Dr. Chris Cantu was present and scrubbed for the entirety of the case. | | | | | | | |Karthik Gonzalez MD | | | |Pursuant to federal Medicare and Medicaid regulations I was present for the entire procedur e. | | | | | | | |Shahid Cantu MD | |Civil Engineer'S Aide | |Trauma, Critical Care & Acute Care Surgery | | | | | | | |Shahid Cantu MD | |TBK/MODL | | | | | | /[id number] | + ---+ CAPILLARY BLOOD GLUCOSE (NO [...] AMES | [address] | [place], [place] | | | JUSTINE DAWN OF JAKY | [address] | [address] | | | TESTS | | | [...] MARQUAM | [address] | [place], [place] | | | [facility] POINT OF CARE | [address] | [address] | | | TESTS | | | [...] MARQUAM | [address] | [place], [place] | | | JUSTINE DAWN OF CARE | [facility] | [address] | | | TESTS | | | [...] AMES | [address] | [place], [place] | | | JUSTINE [facility] OF JAKY | [address] | [address] | | | TESTS | | | [...] MARQUAM | [address] | [place], [place] | | | JUSTINE [facility]WN OF CARE | [address] | [address] | | | TESTS | | | [...] KWAKU | [address] | [place], [place] | | | [facility] | [address] | [address] | | | TESTS | | | [...] LABORATORY | [address] | [place] [address] | | | SERVICES, CORE | PARK [...] + + + + + | [facility] | [address] | [place] [address] | | | SERVICES, CORE | CLARENCE [...] MARQUAM | [address] | [place], [place] | | | [facility] POINT OF CARE | [address] | [address] | | | TESTS | | | [...] MARQUAM | [address] | [place], [place] | | | [facility] POINT OF CARE | [address] | [address] | | | TESTS | | | [...] AMES | [address] | [place], [place] | | | [facility] POINT OF CARE | [address] | [address] | | | TESTS | | | [...] MARQUAM | [address] | [place], [place] | | | [facility] POINT OF CARE | [address] | [address] | | | TESTS | | | [...] - MARQUAM | [address] | [place], [place] | | | [facility] POINT OF CARE | [address] | [address] | | | TESTS | | | [...] + + + + + | [facility] LAB[facility]ORY | [address] | [place] [address] | | | [address]DIA RANGEL | CLARENCE [...] NKECHI AMES | [address] | [place], [place] | | | [facility] | [address] | [address] | | | TESTS | | | [...] | | | | First dose on [facility] 03/01/15 at 0900, | | AM PDT [...] | | | | | dose on [facility] 03/01/15 at 0900, Until | | AM [...]
--- OUTSIDE RECORDS SUMMARY | ~2019-05-10 | XMS | Encounter Summary ---
[...] [place], [place] | | | | | [address] | | + + + + + | Ellie Vang | ECON | Unknown | | + + + + + Care Team Providers + +------+ + | Care Chief Orthoptist Name | Role | Phone | + [...] at [facility] [address] | ACNP [address] | | | | | [address] | [place], [place] | | | | | Mailcode: Carrier | [address] | | | | | for Health and | | | | | | [facility] | | | | | | [facility] [place] | | | | | | [address] | | | | | | | [...] Flannery | | | | | | [place], [place] | | | | | | [address] | | | | | | [phone] | | | | | | | | +--------+ + + + + | 06/27/ | Telephone-S | Pre-operative | | | | 2019 | cheduled | Medicine | | | +--------+ + + + + | 06/30/ | Office | Cardiology | Randell Franks, | | | 2019 | Visit | [address] | | | | | | [place], [place] | | | | | | [address] | | | | | | [phone] | | | | | | | | +--------+ + + + + | 07/08/ | Procedure | Surgery | | | | 2019 | Pass | | | | +--------+ + + + + documented as of this encounter Visit Diagnoses Not on filedocumented in this encounter"
--- OUTSIDE RECORDS SUMMARY | ~2019-05-10 | XMS | Encounter Summary ---
Demographics + + + | Address | [address] | | | [place] [address] | + + + | Home Phone [...] [place], [place] | | | | | [address] | | + + + + + | Ellie Vang | ECON | Unknown | | + + + + + Care Team Providers + +------+ + | Care Supervisor Paint Name | Role | Phone | + [...] [place] | | | | | | [address] | | | | | | [phone] | | | | | | | [...] | | | | | [place], [place] | | | | | | [address] | | | | | | [phone] | | | | | | | | +--------+ + + + + | 07/08/ | Procedure | Surgery | | | | 2019 | Pass | | | | +--------+ + + + + documented as of this encounter Visit Diagnoses Not on filedocumented in this encounter"
--- OUTSIDE RECORDS SUMMARY | ~2019-05-10 | XMS | Encounter Summary ---
Demographics + + + | Address | [address] | | | [place] [address] | + + + | Home Phone [...] [place], [place] | | | | | [address] | | + + + + + | Ellie Vang | ECON | Unknown | | + + + + + Care Team Providers + +------+ + | Care Tin Flopper Name | Role | Phone | + [...] | | | | | | [place] [address] | | | +--------+ + + + [...] [place] | | | | | | [address] | | | | | | [phone] | | | | | | | [...] | | | | | [place], [place] | | | | | | [address] | | | | | | [phone] | | | | | | | | +--------+ + + + + | 07/08/ | Procedure | Surgery | | | | 2019 | Pass | | | | +--------+ + + + + documented as of this encounter Visit Diagnoses Not on filedocumented in this encounter"
--- OUTSIDE RECORDS SUMMARY | ~2019-05-10 | XMS | Encounter Summary ---
Demographics + + + | Address | [address] | | | [place] [address] | + + + | Home Phone [...] [place], [place] | | | | | [address] | | + + + + + | Ellie Vang | ECON | Unknown | | + + + + + Care Team Providers + +------+ + | Care Thread Inspector Name | Role | Phone | [...] | | | Mailcode: [place] | [place], [place] | | | | | [facility] and | [address] | | | | | [facility] 2 | [phone] | | | | | [place], [place] | | | | | | [address] | | | | | | [phone] | | | +--------+ + + + [...] [place] | | | | | | [address] | | | | | | [phone] | | | | | | | [...] | | | | | Alma Delia [place], [place] | | | | | | [address] | | | | | | [phone] | | | | | | | | +--------+ + + + + | 07/08/ | Procedure | Surgery | | | | 2018 | Pass | | | | +--------+ + + + + documented as of this encounter Visit Diagnoses Not on filedocumented in this encounter"
--- OUTSIDE RECORDS SUMMARY | ~2019-05-10 | XMS | Encounter Summary ---
Demographics + + + | Address | [address] | | | [place] [address] | + + + | Home Phone [...] [place], [place] | | | | | [address] | | + + + + + | Ellie Vang | ECON | Unknown | | + + + + + Care Team Providers + +------+ + | Care Estimator Printing Name | Role | Phone | + [...] | 2015 | Review | Center at [facility] 3485 | MD | Decision | | | | [address] Flannery | | | | | | Mailcode: [place] | | | | | | [facility] and | | | | | | [facility] 2 | | | | | | [place], [place] | | | | | | [address] | | | | | | [phone] | | | +--------+ + + + [...] Flannery | | | | | | [place], [place] | | | | | | [address] | | | | | | [phone] | | | | | | | [...] | | | | | Alma Delia [place], [place] | | | | | | [address] | | | | | | [phone] | | | | | | | | +--------+ + + + + | 07/08/ | Procedure | Surgery | | | | 2018 | Pass | | | | +--------+ + + + + documented as of this encounter Visit Diagnoses Not on filedocumented in this encounter"
--- OUTSIDE RECORDS SUMMARY | ~2019-05-10 | XMS | Encounter Summary ---
Demographics + + + | Address | [address] | | | [place] [address] | + + + | Home Phone [...] [place], [place] | | | | | [address] | | + + + + + | Ellie Vang | ECON | Unknown | | + + + + + Care Team Providers + +------+ + | Care Chief Green Officer Name | Role | Phone | [...] 2015 | | Center at [facility] [address]85 | [address] | | | | | PRINCE Flannery | Lesly Gutiérrez [place], | | | | | Mailcode: [place] | [place] [address] | | | | | for Health and | | | | | | [facility], [address] [address] | | | | | | [place], [place] | | | | | | [address] | | | | | | [phone] | | | +--------+ + + + [...] [place] | | | | | | [address] | | | | | | [phone] | | | | | | | [...] | | | | | Alma Delia [place], [place] | | | | | | [address] | | | | | | [phone] | | | | | | | | +--------+ + + + + | 07/08/ | Procedure | Surgery | | | | 2019 | Pass | | | | +--------+ + + + + documented as of this encounter Visit Diagnoses Not on filedocumented in this encounter"
--- OUTSIDE RECORDS SUMMARY | ~2019-05-10 | XMS | Encounter Summary ---
Demographics + + + | Address | [address] | | | [place] [address] | + + + | Home Phone [...] [place], [place] | | | | | [address] | | + + + + + | Ellie Vang | ECON | Unknown | | + + + + + Care Team Providers + +------+ + | Care Clerical Supervisor Name | Role | Phone | [...] | | | | | essential | [address] | [address] | | | | | hypertension | [address], | Ave | | | | | Type II or | [address] | [place], [place] | | | | | unspecified | [place] | [address] | | | | | type | [address] | Phone: | | | | | diabetes | Phone: | [phone] | | | | | mellitus | [phone] | Fax: | | | | | without | Fax: | [phone] | | | | | mention of | [phone] | | | | | | complication [...] | Visit | Preventive at [facility] | [address] | mellitus (HCC) | | | | [address] | Ave [place], [place] | (Primary Dx); | | | | Mailcode: 9A | [address] | Migraine headache | | | | [facility] | [phone] | | | | | and [place], | | | | | | Building [address] | | | | | | [place], [place] | | | | | | [address] | | | | | | [phone] | | | +--------+---------+ + + + [...] she is hypothyroid and put her on T[place] Thyroid hormone replacement therapy. Her heart rate [...] [place] | | | | | | [address] | | | | | | [phone] | | | | | | | [...] | | | | | Alma Delia [place], [place] | | | | | | [address] | | | | | | [phone] | | | | | | | [facility] | [address] | [place] [address] | | | SERVICES, SPECIAL | CLARENCE [...]
--- OUTSIDE RECORDS SUMMARY | ~2019-05-10 | XMS | Encounter Summary ---
Demographics + + + | Address | [address] | | | [place] [address] | + + + | Home Phone [...] [place], [place] | | | | | [address] | | + + + + + | Ellie Vang | ECON | Unknown | | + + + + + Care Team Providers + +------+ + | Care Marketing Project Manager Name | Role | Phone [...] [id number] | | | | | | [facility] | | | | | | [place], [place] | | | | | | [address] | | | | | | [phone] | | | +--------+ + + + [...] Flannery | | | | | | [place], [place] | | | | | | [address] | | | | | | [phone] | | | | | | | [...] | | | | | Alma Delia [place], [place] | | | | | | [address] | | | | | | [phone] | | | | | | | | +--------+ + + + + | 07/08/ | Procedure | Surgery | | | | 2018 | Pass | | | | +--------+ + + + + documented as of this encounter Visit Diagnoses Not on filedocumented in this encounter"
--- OUTSIDE RECORDS SUMMARY | ~2019-05-10 | XMS | Encounter Summary ---
Demographics + + + | Address | [address] | | | [place] [address] | + + + | Home Phone [...] [place], [place] | | | | | [address] | | + + + + + | Ellie Vang | ECON | Unknown | | + + + + + Care Team Providers + +------+ + | Care Bit And Shank Department Supervisor Name | Role | Phone | [...] on | Center at [facility] 3485 | [employer]ER [address] | | | | | PRINCE Flannery | [facility] 350 | | | | | Mailcode: Center | [place], [place] | | | | | [facility] Health and | [address] | | | | | [facility] 2 | [phone] | | | | | [place], [place] | | | | | | [address] | | | | | | [phone] | | | +--------+ + + + [...] Flannery | | | | | | [place], [place] | | | | | | [address] | | | | | | [phone] | | | | | | | | +--------+ + + + + | 06/27/ | Telephone-S | Pre-operative | | | | 2018 | cheduled | Medicine | | | +--------+ + + + + | 06/30/ | Office | Cardiology | Randell Franks, | | | 2019 | Visit | | [address] | | | | | | [place], [place] | | | | | | [address] | | | | | | [phone] | | | | | | | | +--------+ + + + + | 07/08/ | Procedure | Surgery | | | | 2018 | Pass | | | | +--------+ + + + + documented as of this encounter Visit Diagnoses Not on filedocumented in this encounter"
--- OUTSIDE RECORDS SUMMARY | ~2019-05-10 | XMS | Encounter Summary ---
Demographics + + + | Address | [address] | | | [place] [address] | + + + | Home Phone [...] [place], [place] | | | | | [address] | | + + + + + | Ellie Vang | ECON | Unknown | | + + + + + Care Team Providers + +------+ + | Care Tap And Die Maker Technician Name | Role | Phone | [...] | | | 2012 | Event | [facility] | [address] | | | | | Admitting Desk | [address] | | | | | Located on the | [place], [place] | | | | | cox south [address] | [address] | | | | | [address] | [phone] | | | | | [place], [place] | | | | | | [address] | | | +--------+ + + + [...] [place] | | | | | | [address] | | | | | | [phone] | | | | | | | [...] | | | | | Alma Delia [place], [place] | | | | | | [address] | | | | | | [phone] | | | | | | | [...]
--- OUTSIDE RECORDS SUMMARY | ~2019-05-10 | XMS | Encounter Summary ---
Demographics + + + | Address | [address] | | | [place] [address] | + + + | Home Phone [...] [place], [place] | | | | | [address] | | + + + + + | Ellie Vang | ECON | Unknown | | + + + + + Care Team Providers + +------+ + | Care Director Digital Communications Name | Role | Phone | + [...] | | | | | essential | [address] [address] | [address] | | | | | hypertension | [address], | Ave | | | | | Type II or | [address] | [place], [place] | | | | | unspecified | [place], [place] | [address] | | | | | type | [address] | Phone: | | | | | diabetes | Phone: | [phone] | | | | | mellitus | [phone] | Fax: | | | | | without | Fax: | [phone] | | | | | mention of | [phone] | | | | | | complication [...] | 2015 | Visit | Preventive at [facility] | MD [address] | mellitus (HCC) | | | | [address] | Ave [place], [place] | (Primary Dx) | | | | Mailcode: 9A | [address] | | | | | [facility] | [phone] | | | | | and Healing, | | | | | | Building 1 | | | | | | [place], [place] | | | | | | [address] | | | | | | [phone] | | | +--------+---------+ + + + [...] [place] | | | | | | [address] | | | | | | [phone] | | | | | | | [...] [place] | | | | | | [address] | | | | | | [phone] | | | | | | | [...] [facility] | [address] | [place] [address] | | | LYDIA RANGEL | CLARENCE [...] | + + + + + | [facility] | [address] | [place] [address] | | | SERVICES, SPECIAL | PARK [...]
--- OUTSIDE RECORDS SUMMARY | ~2019-05-10 | XMS | Encounter Summary ---
Demographics + + + | Address | [address] | | | [place] [address] | + + + | Home Phone [...] [place], [place] | | | | | [address] | | + + + + + | Ellie Vang | ECON | Unknown | | + + + + + Care Team Providers + +------+ + | Care Blacksmith Supervisor Name | Role | Phone | [...] | 2016 | on | Center at [place] [address] | | | | | | PRINCE Flannery | | | | | | Mailcode: [place] | | | | | | for Health and | | | | | | [facility], [facility] 2 | | | | | | [place], [place] | | | | | | [address] | | | | | | [phone] | | | +--------+ + + + [...] Flannery | | | | | | [place], [place] | | | | | | [address] | | | | | | [phone] | | | | | | | [...] | | | | | Alma Delia [place], [place] | | | | | | [address] | | | | | | [phone] | | | | | | | | +--------+ + + + + | 07/08/ | Procedure | Surgery | | | | 2018 | Pass | | | | +--------+ + + + + documented as of this encounter Visit Diagnoses Not on filedocumented in this encounter"
--- OUTSIDE RECORDS SUMMARY | ~2019-05-10 | XMS | Encounter Summary ---
Demographics + + + | Address | [address] | | | [place] [address] | + + + | Home Phone [...] [place], [place] | | | | | [address] | | + + + + + | Ellie Vang | ECON | Unknown | | + + + + + Care Team Providers + +------+ + | Care Skin Care Instructor Name | Role | Phone | [...] | 2019 | Visit | Preventive at [facility] | [address] | mellitus without | | | | [address] | Ave [place], [place] | complication, with | | | | Mailcode: CH9A | [address] | long-term current | | | | [facility] | [phone] | use of insulin ([facility]) | | | | and Healing, | | (Primary Dx); | | | | Building [address] | | Morbid obesity with | | | | [place], [place] | | BMI of 70 and over, | | | | [address] | | adult (HCC) | | | | [phone] | | | +--------+---------+ + + + [...] [facility]) 02/02/2017 Chronic diastolic heart failure (HCC) [...] daily. BELBUCA 300 mcg buccal film CALCIUM CRB&FVH-Q4-XZK96-GENIS ORAL Take 2 tablets by mouth two [...] of metformin, and she reports her last wsjcz-ua-mahn A1 c was 5.5% on this dose. She was recently seen by the bariatric surgery team and because of her rapid weight loss gricelda ptaterson was advised to stop the topiramate. She [...] CREATININE PLASMA (LAB) 0.85 0.70 EGFR - MOROCCAN >60 >60 EGFR NON -MOROCCAN >60 >60 GLUCOSE, PLASMA (LAB) 123 (H) [...] is currently being managed well by her Director Integrated with diuretics and main tenance of her [...] management of her heart failure by her Director Integrated 3) discontinue metformin 4) check 24 urine [...] Flannery | | | | | | [place], [place] | | | | | | [address] | | | | | | [phone] | | | | | | | [...] | | | | | Alma Delia [place], [place] | | | | | | [address] | | | | | | [phone] | | | | | | | [...] [facility]) | | | | | | Morbid obesity | | | | | | with BMI of 70 and | | | | | | over, adult ([facility]) | | + +------+--------+ + + | TSH | Lab | Routin | Type 2 diabetes | Ordered: 01/07/2019 | | | | e | mellitus without | | | | | | complication, with | | | | | | long-term current | | | | | | use of insulin ([facility]) | | | | | | Morbid obesity | | | | | | with BMI of 70 and | | | | | | over, adult ([facility]) | | + +------+--------+ + + [...] [address] | [place], [place] | [phone] | | [place] | | | | [...]
--- OUTSIDE RECORDS SUMMARY | ~2019-05-10 | XMS | Encounter Summary ---
Demographics + + + | Address | [address] | | | [place] [address] | + + + | Home Phone [...] [place], [place] | | | | | [address] | | + + + + + | Ellie Vang | ECON | Unknown | | + + + + + Care Team Providers + +------+ + | Care Advanced Solutions Architect Name | Role | Phone | [...] [place] | | | | | | [address] | | | | | | [phone] | | | | | | | [...] [place] | | | | | | [address] | | | | | | [phone] | | | | | | | | +--------+ + + + + | 07/08/ | Procedure | Surgery | | | | 2019 | Pass | | | | +--------+ + + + + documented as of this encounter Visit Diagnoses Not on filedocumented in this encounter"
--- OUTSIDE RECORDS SUMMARY | ~2019-05-10 | XMS | Encounter Summary ---
Demographics + + + | Address | [address] | | | [place] [address] | + + + | Home Phone [...] [place], [place] | | | | | [address] | | + + + + + | Ellie Vang | ECON | Unknown | | + + + + + Care Team Providers + +------+ + | Care Dispatcher Electric Power Name | Role | Phone | + [...] | | | [address] | [facility] | | | | | Mailcode: Center | [place], [place] | | | | | [facility] and | [address] | | | | | [facility] 2 | [phone] | | | | | [place], [place] | | | | | | [address] | | | | | | [phone] | | | +--------+ + + + [...] Flannery | | | | | | [place], [place] | | | | | | [address] | | | | | | [phone] | | | | | | | | +--------+ + + + + | 06/27/ | Telephone-S | Pre-operative | | | | 2018 | cheduled | Medicine | | | +--------+ + + + + | 06/30/ | Office | Cardiology | Randell Franks, | | | 2018 | Visit | | [address] | | | | | | Ave [place], [place] | | | | | | [address] | | | | | | [phone] | | | | | | | | +--------+ + + + + | 07/08/ | Procedure | Surgery | | | | 2018 | Pass | | | | +--------+ + + + + documented as of this encounter Visit Diagnoses Not on filedocumented in this encounter"
--- OUTSIDE RECORDS SUMMARY | ~2019-05-10 | XMS | Encounter Summary ---
Demographics + + + | Address | [address] | | | [place] [address] | + + + | Home Phone [...] [place], [place] | | | | | [address] | | + + + + + [...] | Lab | Laboratory at [facility] | | History of Fr[place]-en-Y | | 2017 | | [address] | | gastric bypass; | | | | [place], [place] | | Ventral hernia | | | | [address] | | without obstruction | | | | [phone] | | or gangrene; Mixed | | [...] Flannery | | | | | | [place], [place] | | | | | | [address] | | | | | | [phone] | | | | | | | [...] | | | | Alma Delia [facility] [place] | | | | | | [address] | | | | | | [phone] | | | | | | | [...] [facility] | [address] | [place] [address] | | | SERVICES, CORE | PARK [...] + + | [facility] | [address] | [place] [address] | | | SERVICES, CORE | CLARENCE [...] [facility] | | considered for monitoring termite renewal inspector glycemic control in patients with: | [...] [facility] | [address] | [place] [address] | | | SERVICES, SPECIAL | PARK [...] B: | | | | | | [employer] | | | | | | by [employer],[address] | | | | | | [facility] | | | | | | [address] | | | | | | [phone].[employer] | | | | | | [...] [facility] | [address] | [place], [place] | | | [facility] | | [address] | | + + + + + [...] the MDRD equation recommended by the | [facility] | | National Kidney Disease Education Program. [...] [facility] | [address] | [place] [address] | | | SERVICES, CORE | PARK [...] [facility] | [address] | [place] [address] | | | CLAIRE, CORE | PARK [...] [facility] | [address] | [place] [address] | | | SERVICES, CORE | PARK [...] | + + + + + | [facility] | [address] | [place] [address] | | | SERVICES, LYDIA | CLARENCE [...] [facility] | [place] [address] | | | LYDIA RANGEL | PARK [...] [facility] | [address] | [place] [address] | | | SERVICES, CORE | CLARENCE [...]
--- OUTSIDE RECORDS SUMMARY | ~2019-05-10 | XMS | Encounter Summary ---
Demographics + + + | Address | [address] | | | [place] [address] | + + + | Home Phone [...] [place], [place] | | | | | [address] | | + + + + + | Ellie Vang | ECON | Unknown | | + + + + + Care Team Providers + +------+ + | Care Shipping Processor Name | Role | Phone | [...] | Center at [facility] 3485 | [address] | | | | | [address] | [facility] 350 | | | | | Mailcode: Center | [place], [place] | | | | | [facility] Health and | [address] | | | | | [facility] 2 | [phone] | | | | | [place], [place] | | | | | | [address] | | | | | | [phone] | | | +--------+ + + + [...] Flannery | | | | | | [place], [place] | | | | | | [address] | | | | | | [phone] | | | | | | | [...] | | | | | Alma Delia [place], [place] | | | | | | [address] | | | | | | [phone] | | | | | | | | +--------+ + + + + | 07/08/ | Procedure | Surgery | | | | 2019 | Pass | | | | +--------+ + + + + documented as of this encounter Visit Diagnoses Not on filedocumented in this encounter"
--- OUTSIDE RECORDS SUMMARY | ~2019-05-10 | XMS | Encounter Summary ---
Demographics + + + | Address | [address] | | | [place] [address] | + + + | Home Phone [...] [place], [place] | | | | | [address] | | + + + + + | Ellie Vang | ECON | Unknown | | + + + + + Care Team Providers + +------+ + | Care Quartz Mounter Name | Role | Phone | [...] Morbid | | 2018 | Visit | [facility] [address] | [address] | obesity ([facility]), BMI | | | | [address] | [address] | 88 (Primary Dx); | | | | Mailcode: [facility] | [place], [place] | Type 2 diabetes | | | | [facility] [employer] and | [address] | mellitus without | | | | Healing, [address] | | complication, with | | | | [place], [place] | | long-term current | | | | [address] | | use of insulin | | | | [phone] | | ([facility]); S/P gastric | | | | [...] Patient referred by: DO Vasyl Lewis [place] [id number] Documented time of visit: 1:30 to 2:00 (30 minutes yhvf-sq-vcyj with patient) Surgery: Gastric Bypass Date of [...] vagina Allergic rhinitis Anemia Anxiety Bipolar disorder ([facility]) Chronic wound infection of abdomen from 2010 Cough Depression Diverticulitis of colon Dizziness Glaucoma Heart burn Hemorrhoids Hernia of abdominal wall Incisional hernia, incarcerated 2012 Insomnia Irregular periods Kidney stone Leaking of urine Leg sore Lymphedema Morbid obesity with body mass index of 70 and over in adult ([facility]) Myalgia and myositis Nausea Neck pain Numbness Osteoarthritis of knee Palpitations Pneumonia Shortness of breath Staphylococcal infection Stroke ([facility]) TIA (transient ischemic attack) due to [...] multivitamin & mineral (with iron) supplement, 2/day -7647-0388 mg calcium citrate with vitamin D/day (take [...] in [address],[place] Pager# [phone] Phone: [phone] documented in this e ncounter Plan of Treatment +--------+ + + + + | Date | Type | Specialty | Care Team | Description | +--------+ + + + + | 05/13/ | Office | Plastic Surgery | Archie Ybarra MD | | | 2019 | Visit | | [address] | | | | | | [place], [place] | | | | | | [address] | | | | | | [phone] | | | | | | | [...] | | | | | Alma Delia [place], [place] | | | | | | [address] | | | | | | [phone] | | | | | | | [...] | [place] MNT RE-ASSESSMNT | Routin | 03/10/2018 | [...] of insulin ([facility]) | | | | | | S/P [...]
--- OUTSIDE RECORDS SUMMARY | ~2019-05-10 | XMS | Encounter Summary ---
Demographics + + + | Address | [address] | | | [place] [address] | + + + | Home Phone [...] [place], [place] | | | | | [address] | | + + + + + | Ellie Vang | ECON | Unknown | | + + + + + Care Team Providers + +------+ + | Care Body And Fender Mechanic Name | Role | Phone | [...] | Tiny, | | | | | LA EST | Fadi Person DO | MD Randell | | | | | PATIENT | [address] | [address] | | | | | [address] | [address] | Ave | | | | | | [place], | [place], [place] | | | | | | [place] [address] | [address] | | | | | | Phone: | Phone: | | | | | | [phone] | [phone] | | | | | | Fax: | Fax: | | | | | | [phone] | [phone] | +--------+--------+ + + + + Encounter Details +--------+---------+ + + + | Date | Type | Department | Care Team | Description | +--------+---------+ + + + | 04/03/ | Office | Cardiology | Randell Franks, | Morbid obesity (HCC) | | 2015 | Visit | Preventive at [facility] | [address] | (Primary Dx); Type | | | | [address] | Ave [place], [place] | 2 diabetes mellitus | | | | Mailcode: CH9A | [address] | without complication | | | | [facility] | [phone] | ([facility]) | | | | and [address], | | | | | | Building [address] | | | | | | [place], [place] | | | | | | [address] | | | | | | [phone] | | | +--------+---------+ + + + [...] 500 mg by mouth once daily. CALCIUM CRB&UOO-X7-KHF25-GENIS ORAL Take 1 tablet by mouth two [...] documented, but if we use her last [facility] weight of 410 lbs, this would put her at 360 lbs before consideration for RYGBP. She is working with the bariatric surgery engineer systems to try to achieve this. She states [...] visit Diet: healthy, working with Bar Surg engineer systems Exercise: "I walk everywhere." ROS: No CP, [...] Flannery | | | | | | [place], [place] | | | | | | [address] | | | | | | [phone] | | | | | | | [...] | | | | | Alma Delia [place], [place] | | | | | | [address] | | | | | | [phone] | | | | | | | [...]
--- OUTSIDE RECORDS SUMMARY | ~2019-05-10 | XMS | Encounter Summary ---
Demographics + + + | Address | [address] | | | [place] [address] | + + + | Home Phone [...] [place], [place] | | | | | [address] | | + + + + + | Ellie Vang | ECON | Unknown | | + + + + + Care Team Providers + +------+ + | Care Board Mixer Tender Name | Role | Phone | [...] [facility] | MD [address] | | | | | [address] | Ave [place], [place] | | | | | Mailcode: [id number] | [id number] | | | | | [facility] | [phone] | | | | [facility], | | | | | | [address] | | | | | | [place], [place] | | | | | | [address] | | | | | | [phone] | | | +--------+ + + + [...] Flannery | | | | | | [place], [place] | | | | | | [address] | | | | | | [phone] | | | | | | | [...] | | | | | [place], [place] | | | | | | [address] | | | | | | [phone] | | | | | | | | +--------+ + + + + | 07/08/ | Procedure | Surgery | | | | 2019 | Pass | | | | +--------+ + + + + documented as of this encounter Visit Diagnoses Not on filedocumented in this encounter"
[~2019-05-10 13:06] MED LIST changes: +BELBUCA300 MCG; +CATAPRES0.1 MG PO; +FERROUS GLUCON324 M1 PO; +LATUDA20 MG PO; +MIRAPEX0.125 MG PO; +PAXIL40 MG PO; +PHENTERMINE H37.5 MG PO; +STOOL SOFTENER240 MG PO
--- OUTSIDE RECORDS SUMMARY | 2019-05-10 13:08 | XMS ---
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 ROMERO Security Hot Worker Events No recent Security Events currently on file CRITERIA MET - Group Notification - [facility] - Has [facility] Guidelines - [facility] CARE PROVIDERS Rob Tilley Storekeeper Engineering/Fly Worker 03/27/2018-Current PHONE: [phone] Bernard Cardenas Internal Medicine: Pulmonary Disease 08/23/2018-Current PHONE: Unknown LOUIE CARDENAS Primary Care Current PHONE: Unknown Rob Tilley Primary Care 03/27/2018-Current PHONE: [phone] Guidelines Source: Eh Louise MaynardTebbetts Guidelines Date: 12/06/2018 Care Coordination: Receiving mental health services with [facility].\T\nbsp; Please contact [facility] for mental health concerns.\T\nbsp; Sarah/Toni Centeno: [phone]\T\ nbsp; Kishan: [phone].\T\nbsp; Care History Medical/Surgical 08/23/2018 [facility] - PATIENT HAS A PCP APT TO ESTABLISH CARE ON 10/04/18 @ 10:00AM WITH DR LIBBY. [place] VISIT COUNT (12 MO.) 1 [facility] 2 [facility]. TOTAL 3 NOTE: Visits indicate total known visits. ED/UCC VISIT TRACKING (12 MO.) 05/10/2019 13:06 [facility] [place] TYPE: Emergency COMPLAINT: - ABD PAIN 12/03/2018 11:51 [facility] [place] TYPE: Emergency DIAGNOSES: - Strain of unsp musc/tend at lower leg level, right leg, init - RIGHT LEG PAIN DUE TO FALL 08/22/2018 18:05 [facility] [place] TYPE: Emergency COMPLAINT: - ABD PAIN DIAGNOSES: - Other fpc (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 - Upper abdominal pain, unspecified - Bariatric surgery status - Allergy status to oth drug/meds/biol subst status - Noninfective gastroenteritis and colitis, unspecified - Obesity, unspecified - Anxiety disorder, unspecified - long-term (current) use of aspirin - Allergy status to penicillin - Personal history of pulmonary embolism - 1 Type 2 diabetes mellitus without complications - Prsnl hx of TIA (TIA), and cereb infrc w/o resid deficits - long-term (current) use of oral hypoglycemic drugs - Personal history of urinary (tract) infections INPATIENT VISIT TRACKING (12 MO.) No inpatient visits to display in this time frame [email or web address]
[2019-05-10] MEDS ORDERED: ALPRAZOLAM1 MG PO (13:17)
[2019-05-10] MEDS ORDERED: PROMETHAZINE12.5 M1 PO (16:40)
[2019-05-10] MEDS ORDERED: DOXYCYCLINE HY100 M3 PO (16:40)
== END 2019-05-10 17:40 | disposition home or self-care (01) ==
LOC: ED 13:06
PROC: 0T9B70Z Drainage of Bladder with Drainage Device, Via Natural or Artificial Opening (ICD-10-PCS; principal; 2019-05-10)
DX: K43.9 Ventral hernia without obstruction or gangrene (principal); R11.2 Nausea with vomiting, unspecified; R19.7 Diarrhea, unspecified; R91.1 Solitary pulmonary nodule; F41.9 Anxiety disorder, unspecified; Z88.0 Allergy status to penicillin; Z88.8 Allergy status to other drugs, medicaments and biological substances; Z86.73 Personal history of transient ischemic attack (TIA), and cerebral infarction without residual deficits; Z79.82 Long term (current) use of aspirin; Z79.899 Other long term (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
CPT/HCPCS: 36415; 51701; 74177; 80053; 81001; 83690; 84703; 85025; 99284-25; J1170; J2550; J2765; J2997; J7120; Q9967

== ENCOUNTER 2019-05-20 10:18 | Emergency (ER) | payer OTHER ==
[~2019-05-20] VITALS: Ht 147.3 cm; Wt 122.9 kg
--- OUTSIDE RECORDS SUMMARY | ~2019-05-20 | XMS | Encounter Summary ---
Demographics + + + | Address | [address] | | | [place] [address] | + + + | Home Phone | | + + + | Preferred Language | Unknown | + + + | Marital Status | Single | + + + | Caodaism Affiliation | NON | + + + | Race | White | + + + | Ethnic Group | Not or | + + + Author + + + | Author | [facility] | + + + | Organization | [facility] | + + + | Address | Unknown | + + + | Phone | Unavailable | + + + Support + + + + + | Name | Relationship | Address | Phone | + + + + + | Katalina Padilla | ECON | [address] | | | | | [place], [place] | | | | | [address] | | + + + + + | Ellie Vang | ECON | Unknown | | + + + + + Care Team Providers + +------+ + | Care Fundraising Director Name | Role | Phone | + +------+ + | Fadi Goodrich DO | PCP | | + +------+ + Encounter Details +--------+------+ + + + | Date | Type | Department | Care Team | Description | +--------+------+ + + + | 12/05/ | Lab | Laboratory at [facility] | | Type 2 diabetes | | 2013 | | [address] | | mellitus (HCC) | | | | [place], [place] | | | | | | [address] | | | | | | [phone] | | | +--------+------+ + + + Social History [...] | | 2018 | Visit | | [address] | | | | | | [place] [facility] [place] | | | | | | [address] | | | | | | [phone] | | | | | | | [...] + | HEMOGLOBIN A1C, | Routin | 12/05/2013 | Type 2 diabetes | Results for this | | BLOOD | e | 12:10 PM | mellitus (HCC) | procedure are in the | | | | PDT | | results section. | + +--------+ + + + documented in this encounter Results HEMOGLOBIN A1C, BLOOD (12/05/2013 12:10 PM PDT) + + + + + + | Component | Value | Ref Range | Performed | Pathologist | | | | | At | Signature | + + + + + + | HEMOGLOBIN | 5.7 (H)Comment: Hbg A1c | 4.3 - 5.6 % | [facility] | | | A1C | Interpretive | | LABORATORY | | | | Information: | | SERVICES, | | | | <5.7% - Normal | | SPECIAL IMM | | | | 5.7-6.4% - Consistent | | + COAG | | | | with pre-diabetes | | | | | | >6.4% - Consistent with | | | | | | diabetes | | | | + + + + + + + + | Specimen | + + | Blood - Blood | + + + + + + + | Performing | Address | City/State/Zipcode | Phone Number | | Organization | | | | + + + + + | [facility] | [address] | [place] [address] | | | SERVICES, SPECIAL | [address] | | | | IMM + COAG | | | | + + + + + documented in this encounter Visit Diagnoses + + | Diagnosis | + + | Type 2 diabetes mellitus (HCC) Type II or unspecified type diabetes mellitus without | | mention of complication, not stated as uncontrolled | + + documented in this encounter"
--- OUTSIDE RECORDS SUMMARY | ~2019-05-20 | XMS | Encounter Summary ---
Demographics + + + | Address | [address] | | | [place] [address] | + + + | Home Phone | | + + + | Preferred Language | Unknown | + + + | Marital Status | Single | + + + | Sabianist Affiliation | NON | + + + | Race | White | + + + | Ethnic Group | Not or | + + + Author + + + | Author | [facility] | + + + | Organization | [facility] | + + + | Address | Unknown | + + + | Phone | Unavailable | + + + Support + + + + + | Name | Relationship | Address | Phone | + + + + + | Katalina Padilla | ECON | [address] | | | | | [place], [place] | | | | | [address] | | + + + + + | Ellie Vang | ECON | Unknown | | + + + + + Care Team Providers + +------+ + | Care Automotive Artist Name | Role | Phone | + +------+ + | Fadi Goodrich DO | PCP | | + +------+ + Reason for Visit AUTH/CERT +--------+--------+ + + + + | Status | Reason | Specialty | Diagnoses / | Referred By | Referred To | | | | | Procedures | Contact | Contact | +--------+--------+ + + + + | | | | | | | +--------+--------+ + + + + Encounter Details +--------+---------+ + + + | Date | Type | Department | Care Team | Description | +--------+---------+ + + + | 03/01/ | Surgery | 6A Intra Op [facility] | Ion Castanon, | LAPAROSCOPIC NISH EN | | 2017 | | [facility] | MD [address] | [address]IC [address] | | | | Admitting Desk | [place], [place] | | | | | Located on the | [id number] | | | | | floor [address] [facility] | [phone] | | | | | [address] | | | | | | [place], [place] | | | | | | [address] | | | +--------+---------+ + + + [...] + + + | Blood Pressure | 115/60 | 03/03/2018 8:50 AM | | | | | PDT | | + + + + + | Pulse | 94 | 03/03/2018 8:50 AM | | | | | PDT | | + + + + + | Temperature | 37 C (98.6 F) | 03/03/2018 8:50 AM | | | | | PDT | | + + + + + | Respiratory Rate | 18 | 03/03/2018 8:50 AM | | | | | PDT | | + + + + + | Oxygen Saturation | 93% | 03/03/2018 8:50 AM | | | | | PDT | | + + + + + | Inhaled Oxygen | - | - | | | Concentration | | | | + + + + + | Weight | 169.1 kg (372 lb | 03/01/2018 12:20 PM | | | | 12.8 oz) | PDT | | + + + + + | Height | 149.9 cm (4' 11") | 03/01/2018 12:20 PM | | | | | PDT | | + + + + + | Body Mass Index | 75.3 | 03/01/2018 12:20 PM | | | | | PDT [...] + + documented as of this encounter Discharge Summaries Temitope Gavin ACNP - 03/03/2018 9:49 AM PDT [facility] SURGERY INPATIENT DISCHARGE SUMMARY Author: KAIN Agee Attending Physician: Ion Castanon MD PCP: Fadi Goodrich DO Admission Date: 03/01/2018 Discharge Date: 03 Mar 2018 Diagnoses Patients Hospital Problem List: Active Hospital Problems 1) *Morbid obesity with BMI of 70 and over, adult (HCC) 2) Decreased mobility 3) Diabetes mellitus with insulin therapy (HCC) 4) Personal history of DVT (deep vein thrombosis) 5) Benign essential HTN 6) Acute post-operative pain Procedure Laparoscopic nish en Y gastric bypass Brief Hospital Course Elzbieta Cristina is a 43 y.o. woman with a history of morbid obesity. She was admitted on for the listed procedure. She tolerated the procedure well with no operative complic ations. She recovered briefly in the PACU before being transferred to the [facility] for observati on. Postoperatively, she was placed on a bariatric clear liquid diet. Overnight she was able to tolerate bariatric clear liquids well. On postoperative day 1, she was tolerating baria tric clear liquids well, thus she was advanced to a bariatric full liquid diets. [facility] dietitian was consulted and they discussed her postoperative diet instructions. On day of discharge, her vital signs were stable, tolerating bariatric full liquid diet, pain was wel l controlled with oral pain medications and was ambulating and voiding without difficulty. T hus, she was deemed stable for discharge. Discharge instructions have been reviewed with the patient and all questions have been answered. We will have her follow up with our Bariatric Nurse Practitioner in 1 week and her surgeon, Dr. Ion Castanon MD in approximately 4 we eks. Secondary to the risk for dehydration in the immediate post operative period following pérez atric surgery, the patient's diuretic medication was halved for the first week post op. The patient may resume this at the discretion of the primary care provider. Our recommendation i s to restart when able to consisently take in 64fl oz of liquids per day and/or if there is severe swelling noted. Also, due for VTE prevention due to high BMI and previous hx of VTE, pt will discharge with 1 week prophylactic enoxaparin. Endocrinology recommendations as follows: 1. Degludec (Tresiba) 28 units with dinner night. You likely may need to titrate this dose up (or possibly down) a few times once home. 2. Follow the Degludec (Tresiba) Protocol (see below) for dose adjustments. 3. Discontinue NPH 4. CBGs every morning (fasting) and at lunchtime and at bedtime at minimum. 5. Follow with PCP for Underground Mine Machinery Mechanic within 1 - 2 weeks of discharge for evaluation of A1 c and glycemic management. Take CBG readings to appointment. 6. If CBGs continue greater than 180 or less than 80, call PCP BRIAN (before appointment). Degludec (Tresiba) PROTOCOL Your long acting insulin helps control your sugar levels while you sleep. Your morning vinson gar (CBG) measurement tells you how well your long acting insulin dose is working. Your target morning blood sugar is 80-130. To reach this target you should change your insulin dose every three days. If you morning is higher than this you should increase your insulin dose. If your morning blood sugar levels is lower than this you should decrease your dose. Use the following ch art to help adjust your long acting insulin dose: Average Morning blood sugar for last3 days Change in long acting insulin dose Over 180 Increase by 5 units 151-180 Increase by 3 units 131-150 Increase by 1 unit 80-130 No change in insulin dose 60-79 Decrease insulin by 2 units Less 60 Decrease insulin by 5 units 7. Continue Metformin at 500 mg daily with food (breakfast). If tolerating well after three days, start 500 mg twice daily with food (breakfast and dinner). Then, if tolerating well a fter another three days, start 1000 mg daily with breakfast and stay at 500 mg daily with di nner. Finally, if tolerating well after another three days, stay at 1000 mg daily with break fast and start 1000 mg daily with dinner for a goal of 2000 mg. Medications: Medication List CHANGE how you take these medications oxyCODONE (immediate release) 5 mg Tab Commonly known as: ROXICODONE Take 1 to 3 tablets by mouth every four hours as needed for moderate pain or severe pain. What changed: how much to take when to take this reasons to take this torsemide 100 mg Tab Commonly known as: DEMADEX Take 0.5 tablets by mouth two times daily. Resume half dose for first week post opertative What changed: how much to take additional instructions TRESIBA FLEXTOUCH U-100 100 unit/mL (3 mL) Inpn Generic drug: insulin degludec Inject 28 Units under the skin (SUBC) once daily with dinner. What changed: how much to take when to take this CONTINUE taking these medications acetaminophen 325 mg Tab Commonly known as: TYLENOL Take 2 tablets by mouth every six hours as needed for pain. Cut tablet into small pieces. Do not crush. ALPRAZolam 1 mg Tab Commonly known as: XANAX Take 1 mg by mouth three times daily as needed for anxiety. ARMOUR THYROID 30 mg Tab tab Generic drug: thyroid Take 30 mg by mouth once daily. aspirin EC 81 mg Tbec Take 81 mg by mouth once daily. atenolol 25 mg Tab Commonly known as: TENORMIN Take 25 mg by mouth two times daily. CALCIUM [id number] ORAL Take 2 tablets by mouth two times daily. enoxaparin 40 mg/0.4 mL Syrg Commonly known as: LOVENOX Inject 0.4 mL under the skin two times daily for 14 days. fluoride (sodium) 1.1 % Crea Commonly known as: PREVIDENT PLUS Place onto the teeth. Use to brush teeth 2 to 3 times daily as directed. Do not eat drink or rinse mouth immediately following use. Do not swallow FLUoxetine 20 mg Tab Commonly known as: SARAFEM Take 60 mg by mouth once daily at bedtime. gabapentin 300 mg Cap Commonly known as: NEURONTIN Take 300 mg by mouth four times daily. glycerin (ADULT) Supp Unwrap and insert 1 suppository rectally once daily as needed for constipation. magnesium oxide 400 mg Tab Commonly known as: MAG-OX Take 400 mg by mouth once daily. metFORMIN 1,000 mg Tab Commonly known as: GLUCOPHAGE Take 1,000 mg by mouth two times daily. OLANZapine 15 mg Tab Commonly known as: ZYPREXA Take 30 mg by mouth once daily at bedtime. omeprazole 20 mg Cpdr Commonly known as: PRILOSEC Take 1 capsule by mouth once daily in the morning. Open the capsule and mix into sugar-free liquid or yogurt. ondansetron ODT 4 mg Tbdi Commonly known as: ZOFRAN ODT Dissolve 1 tablet on tongue and swallow every six hours as needed for nausea/vomiting. polyethylene glycol 17 gram/dose Powd Commonly known as: MIRALAX Dissolve 17g (1 capful) into 4 ounces of liquid and drink once daily as needed for constipa tion. potassium chloride SR 20 mEq Tbtq Commonly known as: K-DUR Take 2 tablets by mouth two times daily. simethicone chew 80 mg Chew Commonly known as: MYLICON Chew and swallow 1 tablet four times daily as needed for gas/bloating. topiramate 200 mg Tab Commonly known as: TOPAMAX Take 50 mg by mouth two times daily. Indications: Migraine Prevention traZODone 150 mg Tab Commonly known as: DESYREL Take 150 mg by mouth once daily at bedtime. ursodiol 300 mg Cap Commonly known as: ACTIGALL Take 1 capsule by mouth two times daily. Start taking two weeks after your surgery. VITAMIN C 500 mg Tab Generic drug: ascorbic acid (vitamin C) Take 500 mg by mouth once daily. VITAMIN D2 50,000 unit Cap Generic drug: ergocalciferol Take 50,000 Units by mouth twice weekly (on Thursday and ). STOP taking these medications NovoLIN N NPH U-100 Insulin 100 unit/mL Susp Generic drug: insulin NPH phentermine 37.5 mg Tab Bariatric Diet a. You will be on FULL liquid diet. Try to take 48-64 ounces daily. Liquids should be of a thin consistency and liquids should be able to be poured from cup to cup. b. Aim for 60-80 grams of protein per day from list of foods listed in your bariatric book or in the handout provided by your dietitian prior to discharge. You will remain on this d iet for 2-3 weeks. Do not advance your diet until you are seen in clinic. c. Patient may take medication tablets < or = to 1.30 cm (0.5 inch, approximately the size of a regular M&M). Otherwise, break the pill into that size. If medication is a capsule, op en capsule. Full Liquid Diet Continue your Full Liquid Diet at home. This includes protein drinks, cream of wheat, yogu rt without fruit and clear liquids. Activity a. Do not do any strenuous exercise until your provider has given you permission to do so. b. Walking will be your main form of physical activity. It is important to move frequently throughout the day, increasing your activity level and walking often. It is important to st art slow, but increase your activity each day. c. Do not drive while on narcotic medications. d. Follow abdominal precautions. Wound Care Keep incision clean and dry. No dressings are needed. You may shower. Please pat incisional area dry. Do not rub the incisions; allow for crust to fall off on its own. No baths, hot tubs or swimming for 2 weeks if laparoscopic and 4 weeks if open surgery. Probiotics Consume 1 tablespoon twice per day of foods containing live active cultures (probiotics) vinson ch as low fat yogurt or kefir. Zaria's Yogurt or Kefir, Pinguofield Yogurt, and Decoholicn i Korean Yogurt are common brands with beneficial probiotics. Dehydration Dehydration: It is extremely important for you to stay hydrated. You should be taking in 64 ounces of fluid daily. You should also be urinating at least four times a day. Please monit or and record your daily fluid intake, and report to us immediately if you are not urinating at least four times a day or are experiencing pain with urination. Medication Instructions Medication Instructions: Please cut pills with pill cutter into particles the size of a M&M. Take particles with sma ll amount of sugar-free liquid, pudding or yogurt. If unable to cut, please crush pills. If any of your medications come in capsule form, please open capsule and empty contents into sm all amount of sugar-free liquid or yogurt. Take entire contents via mouth. Vitamins Vitamins: You will begin taking your vitamins after your first 1 week post operative visit with the Nurse Practitioner. If your insurance does not cover vitamins, they are available over the counter at most [facility] stores. Nausea/Vomiting/Difficulty Swallowing Nausea/Vomiting/Difficulty swallowing: Could be from not ingesting appropriate food/drink, eating too much or too fast. Do not drink with meals, leave at least 30 minutes between eati ng and drinking to decrease overfilling of the stomach. Take nausea medication provided to y ou if you feel nauseated. It is important that you meet your goal of fluid intake (64 ounces /day) Malaise (Feeling tired) Malaise (Feeling tired): It is very normal to feel tired after surgery for the first two we eks. It is important to be active, and you should feel a little bit better each day. Primary Care Provider Follow Up Primary Care Provider Follow Up: a) Primary care follow up is extremely important. You need to make a follow up appointment with your Primary Care Provider in 2 weeks. It is especially important to do so if you are on medications for your blood pressure or for diabetes. At this appointment your provider wi ll review your medications and make the necessary changes--if needed. b) Before your primary care visit, please check your blood sugar and blood pressure regula rly and keep a record of them to show your primary care provider. At your primary care provi philip follow up visit, they will use your blood pressure and blood sugar numbers to adjust you r medications as needed. c) Diabetes -- Monitoring your blood sugar during your immediate post operative period i s important. You are at risk for hypoglycemia (low blood sugar), therefore it is important t o monitor your blood sugar levels in the immediate postoperative period and especially when taking medications for your diabetes. Early symptoms of hypoglycemia include: -Confusion. -Dizziness. -Feeling shaky. -Hunger. -Headaches. -Irritability. -Pounding heart; racing pulse. -Pale skin. If you experience any of these symptoms, please check your blood sugar level. If it is lowe r than 75, please eat something to increase your blood glucose and call your primary care pr ovider immediately for further instructions. d) Hypertension --It is important to check your blood pressure before any blood pressure medications a re taken due to your risk for hypotension (low blood pressure). Please check your blood pres sures if you are feeling dizzy or lightheaded, and especially if you notice these symptoms w hile changing from a lying to sitting to standing position. --Symptoms of Low Blood Pressure (hypotension) include: -Dizziness or lightheadeness -Fainting (syncope) -Lack of concentration -Blurred vision -Nausea -Cold, clammy, pale skin -Fatigue -Thirst Constipation Prevention It is very important to avoid constipation and straining while trying to have a bowel movem ent. It is common to experience constipation after your operation and when taking narcotics. Please use laxative medications such Polyethylene glycol (Miralax) or glycerin suppositorie s to assist you with having regular bowel movements. Please work towards having a bowel mov ement every 1-2 days. A hot drink each morning will also help the sphincter to work in pushi ng the stool forward. It is important to stay hydrated, about 45-60 fluid ounces daily, and this will help your bowel function. Pain Instructions It is expected that you will experience pain after your operation, and it is important to h ave you manage your pain to increase your activity, sleep and overall healing. You will have a prescription for pain relief. This should be taken every 3-6 hours per your instructions. Some medications, like [place], have Tylenol in it. Make sure you do not take more than 4,000 mg of Tylenol or acetaminophen in 24 hours. Pain Tapering Instructions Your pain should slowly and steadily diminish as you heal. If your pain level at the surger y site increases, you should call us. It is normal for increased pain if you are overly acti ve or you decrease your pain medication, but a significant and unexplained increase in pain should be discussed with your surgeon. Pain medication is usually necessary for only 4-5 day s postoperatively. It is important to have a plan for tapering off of pain medication. Con sult your pharmacist to construct a proper tapering schedule. Clinic staff is able to help you develop a tapering schedule as well. Please be aware that if you have chronic pain issue s, or you require pain medication for an extended period of time, you will likely be given i nstructions to follow up with your PCP or a pain management provider. Refill Instructions: Your pain medications should be taken as needed, as prescribed by your healthcare provider. You should plan to taper down your dosing within the first 2-3 days postop. Refills are n ot available outside of clinic hours or on weekends or holidays. Narcotic pain medications require a written prescription and must be signed by a provider and mailed to you or picked up. If you need ongoing pain medication beyond the usual recovery period, you will be direc emely to follow up with your primary care provider (PCP) as this clinic does not provide [facility] services. When to Call the Doctor When to Call the Doctor - If your incision becomes red, swollen, or has any bloody or pus-like drainage. - If you have a fever of 101.5 F or greater or if you have chills. - If you have increased pain, unrelieved by your pain medications. - If you have persistent nausea, vomiting, diarrhea, or no bowel movement for more than 2 d ays after discharge from the hospital. - If you develop any unusual signs or symptoms, including chest pain, shortness of breath, pulmonary embolism, leg swelling, pain or redness that is abnormal for you, and other sympto ms of concern. - If you have any questions or concerns. How to Call the Doctor - You may contact your doctor Thursday through Thursday during the daytime hours by calling the surgery office at [phone]. - After hours, weekends and holidays, you may call the hospital tractor operator laser leveling at [phone] an d have the agricultural education instructor Red Surgery Team paged. OTHER DISCHARGE ORDERS & INSTRUCTIONS DISCHARGE RECOMMENDATIONS as of 03/03/18 Please copy to AVS. 1. Degludec (Tresiba) 28 units with dinner night. You likely may need to titrate this dose up (or possibly down) a few times once home. 2. Follow the Degludec (Tresiba) Protocol (see below) for dose adjustments. 3. Discontinue NPH 4. CBGs every morning (fasting) and at lunchtime and at bedtime at minimum. 5. Follow with PCP for Underground Mine Machinery Mechanic within 1 - 2 weeks of discharge for evaluation of A1 c and glycemic management. Take CBG readings to appointment. 6. If CBGs continue greater than 180 or less than 80, call PCP BRIAN (before appointment). Degludec (Tresiba) PROTOCOL Your long acting insulin helps control your sugar levels while you sleep. Your morning vinson gar (CBG) measurement tells you how well your long acting insulin dose is working. Your target morning blood sugar is 80-130. To reach this target you should change your insulin dose every three days. If you morning is higher than this you should increase your insulin dose. If your morning blood sugar levels is lower than this you should decrease your dose. Use the following ch art to help adjust your long acting insulin dose: Average Morning blood sugar for last3 days Change in long acting insulin dose Over 180 Increase by 5 units 151-180 Increase by 3 units 131-150 Increase by 1 unit 80-130 No change in insulin dose 60-79 Decrease insulin by 2 units Less 60 Decrease insulin by 5 units 7. Continue Metformin at 500 mg daily with food (breakfast). If tolerating well after three days, start 500 mg twice daily with food (breakfast and dinner). Then, if tolerating well a fter another three days, start 1000 mg daily with breakfast and stay at 500 mg daily with di nner. Finally, if tolerating well after another three days, stay at 1000 mg daily with break fast and start 1000 mg daily with dinner for a goal of 2000 mg. Destination Home Condition Stable Vitals on discharge: Ht 1.499 m (4' 11"), Wt 169.1 kg (372 lb 12.8 oz), BP 115/60, Pulse 94 , Temperature 37 C (98.6 F), RR 18, SpO2 93%, BMI 75.3 kg/(m^2). Facility age limit for growth percentiles is 18 years. Outstanding labs/studies: None Physical Exam General: Alert, oriented, NAD Respiratory: Breathing comfortably Cardiovascular: RRR Abdomen: soft, appropriately tender, non distended, lap incisions sites are without drainag e, surrounding erythema or induration. Extremities: warm, well perfused, no edema noted Future Appointments Provider Department Dept Phone Center 03/10/2018 1:30 PM [facility] at [facility] 6th Floor [phone] FO OD AND NUT 03/10/2018 3:05 PM Ronna Clarke [facility] at [facility] 6th Floor [phone] [facility] 04/01/2018 10:30 AM [facility] at [facility] 6th Floor [phone] FO OD AND NUT 04/01/2018 11:00 AM oIn Castanon [facility] at [facility] 6th Floor [phone] [facility] 05/27/2018 2:30 PM [facility] at [facility] 6th Floor [phone] FO OD AND NUT 05/27/2018 3:05 PM [facility] 6th Floor [phone] [facility] 05/27/2018 4:30 PM [facility] at [facility] 15th Floor [phone] [facility] 06/04/2018 10:35 AM Randell Franks [facility]iology [facility] at [facility] [phone] Cardiology Discharging Physician: KAIN Agee Attending Physician: Ion Castanon MD [facility] Red Surgery Pager# [phone] 9:50 AM 03/03/2018 documented in this enco unter Medications at Time of Discharge + + [...] + + +---------+ + + | atenolol 50 mg | Take 50 mg by mouth | | 0 | 06/12/20 | | | oral tablet | once daily at | | | 17 | | | | bedtime. | | | | | + + + +---------+ + + | CALCIUM | Take 2 tablets by | | 0 | | | | [id number] | mouth two times | | | | | | IS ORAL | daily. | | | | | + + + +---------+ + + | magnesium oxide | Take 400 mg by mouth | | 0 | | | | 400 mg oral tablet | two times daily. | | | | | + + + +---------+ + + | thyroid (ARMOUR | Take 30 mg by mouth | | 0 | | | | THYROID) 30 mg oral | once daily at | | | | | | tablet tab | bedtime. | | | | | + + [...] + + + +---------+ + + | enoxaparin 40 | Inject 0.4 mL under | 11.2 mL | 0 | 01/12/20 | | | mg/0.4 mL | the skin two times | | | 18 | 8 | | subcutaneous | daily for 14 days. | | | | | | syringeIndications: | | | | | | | Morbid obesity (HCC) | | | | | | + + + +---------+ + + | omeprazole 20 mg | Take 1 capsule by | 90 | 0 | 01/12/20 | | | oral capsule,delayed | mouth once daily in | capsule | | 18 | 8 | | | the morning. Open | | | | | | release(DR/EC)Indica | the capsule and mix | | | | | | tions: Morbid | into sugar-free | | | | | | obesity (HCC) | liquid or yogurt. | | | | | + + + +---------+ + + documented as of this encounter Progress Notes Gino Calixto - 03/03/2018 6:32 AM PDTFormatting of this note might be different from jennifer patterson original. RED Surgical Team: Foregut/Bariatrics Daily Progress Note Admission Date: 03/01/2018 (Length of Stay: 2 day) Author: GINO CALIXTO Attending Provider: Ion Castanon MD ID: Elzbieta Cristina is a 43 y.o. female with a history of DVT/PE, hypertension, obstructiv e sleep apnea, T2DM, hypothyroidism who is on POD2 following a laparoscopic nish-en-y gastri c bypass. Procedures: - Lap nish-en-y gastric bypass - EGD Interval Events: Pain is well managed, feels like oxycodone + toradol is helping FLD Amulating x4 yesterday Passed gas I/Os: Intake/Output Summary (Last 24 hours) at 03/03/18 0543 Last data filed at 03/03/18 0500 Gross per 24 hour Intake 2149 ml Output 1125 ml Net 1024 ml PO 1424 UOP 1125 Vitals: Last 24 hour min/max Temp: 36.8 C (98.2 F) Temp Min: 36.5 C (97.7 F) Max: 37 C (98.6 F) Heart Rate: 83 Pulse Min: 77 Max: 99 Resp: 18 Resp Min: 16 Max: 20 BP: 111/52 BP Min: 107/54 Max: 127/93 SpO2: 92 % SpO2 Min: 89 % Max: 96 % Body mass index is 75.3 kg/m. Physical Exam: General: Alert and oriented, NAD. Respiratory: Unlabored on RA CV: Skin warm and well perfused Abdomen: soft, slightly distended, some bruising, appropriately tender; Incisions c/d/i Extremities: Warm and well perfused, no peripheral edema Labs: Significant for: CBG Result Av.8 Min: 87 Max: 131, well controlled Last CBG 92 (0630 today) Assessment and Plan: Elzbieta Cristina is a 43 y.o. female POD LOS: 2 days s/p the procedures above. she is rec overing appropriately post op. Routine post op care - PRN nausea regimen Acute Post-Operative Pain - PRN Tylenol - PRN oxycodone - Gabapentin QID - PRN dilaudid - lidocaine patch - toradol q4 FEN - MIVF: none - Diet: full liquid diet - Replace electrolytes as needed Chronic Conditions: - Endo following, appreciate recs - T2DM - glucagon as needed Prophylaxis - Activity: As tolerated - PPI - Thromboembolism PPX: Lovenox 40mg, pt will be d/pro with 2wks lovenox at home Disposition: pending clinical course, anticipated date of discharge 03/03/18 PARTHA Calixto MS3 [facility] [employer] Demarcus Menon MD - 03/02 11:00 AM PDT RED Surgical Team: Foregut/Bariatrics Daily Progress Note Admission Date: 03/01/2018 (Length of Stay: 1 day) Author: Demarcus Alas MD Attending Provider: Ion Castanon MD ID: Elzbieta Cristina is a 43 y.o. female with a history of DVT/PE, hypertension, obstructiv e sleep apnea, T2DM, hypothyroidism who is on POD1 following a laparoscopic nish-en-y gastri c bypass. Procedures: - Laparoscopic Nish-en-y gastric bypass - EGD Interval Events: - Pt reports pain at ribs and deep to midline incision sites - Nausea late yesterday - Ambulating only to urinate - DVT/PE history verified (provoked) - CPAP overnight while sleeping -Feels well I/Os: Intake/Output Summary (Last 24 hours) at 03/02/18 1100 Last data filed at 03/02/18 0936 Gross per 24 hour Intake 2307.85 ml Output 1440 ml Net 867.85 ml PO 600 UOP 1000 Vitals: Last 24 hour min/max Temp: 36.6 C (97.9 F) Temp Min: 36.5 C (97.7 F) Max: 37 C (98.6 F) Heart Rate: 85 Pulse Min: 61 Max: 88 Resp: 16 Resp Min: 9 Max: 23 BP: 110/56 BP Min: 106/69 Max: 152/80 SpO2: 95 % SpO2 Min: 89 % Max: 100 % Body mass index is 75.3 kg/m. Physical Exam: General: Alert and oriented, some discomfort from pain Respiratory: Unlabored on RA CV: Skin warm and well perfused Abdomen: soft, slightly distended, appropriately tender; Incisions c/d/i Extremities: Warm and well perfused, no peripheral edema Labs: Labs reviewed significant for the following: CBG Result Av.4 Min: 92 Max: 127, well controlled on insulin gtt Assessment and Plan: Elzbieta Cristina is a 43 y.o. female POD 1 s/p reux-en-y gastric bypass. She is recovering appropriately post op and is following the bariatric pathway. Routine post op care - PRN nausea regimen Acute Post-Operative Pain - PRN Tylenol - PRN oxycodone - Hydromorphone IV 0.5-1mg q2HR FEN - MIVF: Discontinued (PO >500) - Diet: Advanced to stage I full liquid diet today Chronic Conditions: - Endocrinology following; appreciate recs - T2DM - lantus injection 28 units ordered for 1130 - d/c Insulin gtt - Mild SSI, CBGs ac & hs & 0200 once Endotool is stopped Prophylaxis - Activity: Ambulate today - PPI - Thromboembolism PPX: Lovenox 40mg, pt will also be d/pro with lovenox for 2 wks at home Disposition: - pending clinical course, anticipated date of discharge 03/03/18 - case management for care ride home (pt lives in [place]) Demarcus Alas M.D. General Surgery Resident PGY-1 Pager: [phone] Ion Ferrari MD - 10:00 AM PDTI have seen and examined the patient. I concur with the surgical team assessment and plan. Elzbieta is doing well, tolerating po intake. The pt has good uop, is walking, and pain is m oderately controlled. Plan: - continue to work on pain control - stage 1 to stage 2 diet over today - likely home tomorrow with extended dvt prophylaxis x 14days given elevated BMI >70 and h/ o dvt. Electronically signed on 03/02/2018 at 10:00 AM ION CASTANON MD. documented in this en counter Plan of [...] | | 2018 | Visit | | [address] | | | | | | [place], [place] | | | | | | [address] | | | | | | [phone] | | | | | | | [...] | + +--------+ + + + | CAPILLARY BLOOD | Routin | 03/03/2018 | Morbid obesity | Results for this | | GLUCOSE (NO CHG), | e | 12:37 PM | with BMI of 70 and | procedure are in the | | POC | | PDT | over, adult ([facility]) | results section. | + +--------+ + + + | CAPILLARY BLOOD | Routin | 03/03/2018 | Morbid obesity | Results for this | | GLUCOSE (NO CHG), | e | 7:54 AM | with BMI of 70 and | procedure are in the | | POC | | PDT | over, adult ([facility]) | results section. | + +--------+ + + + | CAPILLARY BLOOD | Routin | 03/03/2018 | Morbid obesity | Results for this | | GLUCOSE (NO CHG), | e | 6:28 AM | with BMI of 70 and | procedure are in the | | POC | | PDT | over, adult ([facility]) | results section. | + +--------+ + + + | CAPILLARY BLOOD | Routin | 03/02/2018 | Morbid obesity | Results for this | | GLUCOSE (NO CHG), | e | 9:17 PM | with BMI of 70 and | procedure are in the | | POC | | PDT | over, adult ([facility]) | results section. | + +--------+ + + + | CAPILLARY BLOOD | Routin | 03/02/2018 | Morbid obesity | Results for this | | GLUCOSE (NO CHG), | e | 6:50 PM | with BMI of 70 and | procedure are in the | | POC | | PDT | over, adult ([facility]) | results section. | + +--------+ + + + | CAPILLARY BLOOD | Routin | 03/02/2018 | Morbid obesity | Results for this | | GLUCOSE (NO CHG), | e | 3:46 PM | with BMI of 70 and | procedure are in the | | POC | | PDT | over, adult ([facility]) | results section. | + +--------+ + + + | CAPILLARY BLOOD | Routin | 03/02/2018 | Morbid obesity | Results for this | | GLUCOSE (NO CHG), | e | 2:36 PM | with BMI of 70 and | procedure are in the | | POC | | PDT | over, adult ([facility]) | results section. | + +--------+ + + + | CAPILLARY BLOOD | Routin | 03/02/2018 | Morbid obesity | Results for this | | GLUCOSE (NO CHG), | e | 1:33 PM | with BMI of 70 and | procedure are in the | | POC | | PDT | over, adult ([facility]) | results section. | + +--------+ + + + | CAPILLARY BLOOD | Routin | 03/02/2018 | Morbid obesity | Results for this | | GLUCOSE (NO CHG), | e | 11:36 AM | with BMI of 70 and | procedure are in the | | POC | | PDT | over, adult ([facility]) | results section. | + +--------+ + + + | CAPILLARY BLOOD | Routin | 03/02/2018 | Morbid obesity | Results for this | | GLUCOSE (NO CHG), | e | 10:32 AM | with BMI of 70 and | procedure are in the | | POC | | PDT | over, adult ([facility]) | results section. | + +--------+ + + + | CAPILLARY BLOOD | Routin | 03/02/2018 | Morbid obesity | Results for this | | GLUCOSE (NO CHG), | e | 9:23 AM | with BMI of 70 and | procedure are in the | | POC | | PDT | over, adult ([facility]) | results section. | + +--------+ + + + | CAPILLARY BLOOD | Routin | 03/02/2018 | Morbid obesity | Results for this | | GLUCOSE (NO CHG), | e | 8:36 AM | with BMI of 70 and | procedure are in the | | POC | | PDT | over, adult ([facility]) | results section. | + +--------+ + + + | CAPILLARY BLOOD | Routin | 03/02/2018 | Morbid obesity | Results for this | | GLUCOSE (NO CHG), | e | 7:35 AM | with BMI of 70 and | procedure are in the | | POC | | PDT | over, adult ([facility]) | results section. | + +--------+ + + + | CAPILLARY BLOOD | Routin | 03/02/2018 | Morbid obesity | Results for this | | GLUCOSE (NO CHG), | e | 6:33 AM | with BMI of 70 and | procedure are in the | | POC | | PDT | over, adult ([facility]) | results section. | + +--------+ + + + | CAPILLARY BLOOD | Routin | 03/02/2018 | Morbid obesity | Results for this | | GLUCOSE (NO CHG), | e | 5:28 AM | with BMI of 70 and | procedure are in the | | POC | | PDT | over, adult ([facility]) | results section. | + +--------+ + + + | CAPILLARY BLOOD | Routin | 03/02/2018 | Morbid obesity | Results for this | | GLUCOSE (NO CHG), | e | 4:36 AM | with BMI of 70 and | procedure are in the | | POC | | PDT | over, adult ([facility]) | results section. | + +--------+ + + + | CAPILLARY BLOOD | Routin | 03/02/2018 | Morbid obesity | Results for this | | GLUCOSE (NO CHG), | e | 2:46 AM | with BMI of 70 and | procedure are in the | | POC | | PDT | over, adult ([facility]) | results section. | + +--------+ + + + | CAPILLARY BLOOD | Routin | 03/02/2018 | Morbid obesity | Results for this | | GLUCOSE (NO CHG), | e | 12:32 AM | with BMI of 70 and | procedure are in the | | POC | | PDT | over, adult ([facility]) | results section. | + +--------+ + + + | CAPILLARY BLOOD | Routin | 03/01/2018 | Morbid obesity | Results for this | | GLUCOSE (NO CHG), | e | 10:31 PM | with BMI of 70 and | procedure are in the | | POC | | PDT | over, adult ([facility]) | results section. | + +--------+ + + + | CAPILLARY BLOOD | Routin | 03/01/2018 | Morbid obesity | Results for this | | GLUCOSE (NO CHG), | e | 8:21 PM | with BMI of 70 and | procedure are in the | | POC | | PDT | over, adult ([facility]) | results section. | + +--------+ + + + | PROCEDURE NOTE | Routin | 03/01/2018 | | Results for this | | | e | 6:55 PM | | procedure are in the | | | | PDT | | results section. | + +--------+ + + + | CAPILLARY BLOOD | Routin | 03/01/2018 | Morbid obesity | Results for this | | GLUCOSE (NO CHG), | e | 6:12 PM | with BMI of 70 and | procedure are in the | | POC | | PDT | over, adult ([facility]) | results section. | + +--------+ + + + | CAPILLARY BLOOD | Routin | 03/01/2018 | Morbid obesity | Results for this | | GLUCOSE (NO CHG), | e | 3:31 PM | with BMI of 70 and | procedure are in the | | POC | | PDT | over, adult ([facility]) | results section. | + +--------+ + + + | CAPILLARY BLOOD | Routin | 03/01/2018 | Morbid obesity | Results for this | | GLUCOSE (NO CHG), | e | 3:29 PM | with BMI of 70 and | procedure are in the | | POC | | PDT | over, adult ([facility]) | results section. | + +--------+ + + + | CAPILLARY BLOOD | Routin | 03/01/2018 | Morbid obesity | Results for this | | GLUCOSE (NO CHG), | e | 2:30 PM | with BMI of 70 and | procedure are in the | | POC | | PDT | over, adult ([facility]) | results section. | + +--------+ + + + | CAPILLARY BLOOD | Routin | 03/01/2018 | Morbid obesity | Results for this | | GLUCOSE (NO CHG), | e | 1:35 PM | with BMI of 70 and | procedure are in the | | POC | | PDT | over, adult ([facility]) | results section. | + +--------+ + + + | CAPILLARY BLOOD | Routin | 03/01/2018 | Morbid obesity | Results for this | | GLUCOSE (NO CHG), | e | 12:16 PM | with BMI of 70 and | procedure are in the | | POC | | PDT | over, adult ([facility]) | results section. | + +--------+ + + + | LAPAROSCOPIC GASTRIC | Routin | 03/01/2018 | | Results for this | | BYPASS AND | e | 11:21 AM | | procedure are in the | | NISH-EN-Y | | PDT | | results section. | | GASTROENTEROSTOMY | | | | | | WITH NISH LIMB 150 | | | | | | CM OR LESS | | | | | + +--------+ + + + | EGD | Routin | 03/01/2018 | | Results for this | | (ESOPHAGOGASTRODUODE | e | 11:21 AM | | procedure are in the | | NOSCOPY) | | PDT | | results section. | + +--------+ + + + | CAPILLARY BLOOD | Routin | 03/01/2018 | Morbid obesity | Results for this | | GLUCOSE (NO CHG), | e | 10:11 AM | with BMI of 70 and | procedure are in the | | POC | | PDT | over, adult ([facility]) | results section. | + +--------+ + + + | LAPAROSCOPIC | Electi | 03/01/2018 | Morbid obesity | | | NISH-EN-Y GASTRIC | ve | 8:31 AM | ([facility]) | | | BYPASS | Surgic | PDT | | | | | al | | | | + +--------+ + + + | INTRAPROCEDURE | Routin | 03/01/2018 | | Results for this | | IMAGING | e | 6:09 AM | | procedure are in the | | | | PDT | | results section. | + +--------+ + + + | CARDIOLOGY | | 03/01/2018 | | Results for this | | | | 12:00 AM | | procedure are in the | | | | PDT | | results section. | + +--------+ + + + documented in this encounter Results CAPILLARY BLOOD GLUCOSE (NO CHG), POC (03/03/2018 12:37 PM PDT) + +---------+ + + + | Component | Value | Ref Range | Performed | Pathologist | | | | | At | Signature | + +---------+ + + + | BLOOD | 123 (H) | 70 - 99 mg/dL | [facility] | | | [facility], | | | [facility] | | | POC | | | [facility] | | | | | | [facility] | | | | | | TESTS | | + +---------+ + + + + + | Specimen | + + | | + + + + + + + | Performing | Address | City/State/Zipcode | Phone Number | | Organization | | | | + + + + + | [facility] | [address] | [place], [place] | | | [facility] | [address] | [phone] | | | TESTS | | | | + + + + + CAPILLARY BLOOD GLUCOSE (NO CHG), POC (03/03/2018 7:54 AM PDT) + +---------+ + + + | Component | Value | Ref Range | Performed | Pathologist | | | | | At | Signature | + +---------+ + + + | BLOOD | 114 (H) | 70 - 99 mg/dL | [facility] | | | [facility], | | | [facility] | | | POC | | | [facility] | | | | | | [facility] CARE | | | | | | TESTS | | + +---------+ + + + + + | Specimen | + + | | + + + + + + + | Performing | Address | City/State/Zipcode | Phone Number | | Organization | | | | + + + + + | [facility] | [address] | [place], [place] | | | [facility] | [address] | [address] | | | TESTS | | | | + + + + + CAPILLARY BLOOD GLUCOSE (NO CHG), POC (03/03/2018 6:28 AM PDT) + +-------+ + + + | Component | Value | Ref Range | Performed | Pathologist | | | | | At | Signature | + +-------+ + + + | BLOOD | 92 | 70 - 99 mg/dL | [facility] | | | [facility], | | | [facility] | | | POC | | | [facility] | | | | | | [facility] | | | | | | TESTS | | + +-------+ + + + + + | Specimen | + + | | + + + + + + + | Performing | Address | City/State/Zipcode | Phone Number | | Organization | | | | + + + + + | [facility] | [address] | [place], [place] | | | [facility] | [address] | [phone] | | | TESTS | | | | + + + + + CAPILLARY BLOOD GLUCOSE (NO CHG), POC (03/02/2018 9:17 PM PDT) + +---------+ + + + | Component | Value | Ref Range | Performed | Pathologist | | | | | At | Signature | + +---------+ + + + | BLOOD | 131 (H) | 70 - 99 mg/dL | [facility] | | | [facility], | | | [facility] | | | POC | | | [facility] | | | | | | [facility] | | | | | | TESTS | | + +---------+ + + + + + | Specimen | + + | | + + + + + + + | Performing | Address | City/State/Zipcode | Phone Number | | Organization | | | | + + + + + | [facility] | [address] | [place], [place] | | | [facility] | [address] | [address] | | | TESTS | | | | + + + + + CAPILLARY BLOOD GLUCOSE (NO CHG), POC (03/02/2018 6:50 PM PDT) + +-------+ + + + | Component | Value | Ref Range | Performed | Pathologist | | | | | At | Signature | + +-------+ + + + | BLOOD | 87 | 70 - 99 mg/dL | [facility] | | | [facility], | | | [facility] | | | POC | | | [facility] | | | | | | [facility] | | | | | | TESTS | | + +-------+ + + + + + | Specimen | + + | | + + + + + + + | Performing | Address | City/State/Zipcode | Phone Number | | Organization | | | | + + + + + | [facility] | [address] | [place], [place] | | | [facility] | [address] | [address] | | | TESTS | | | | + + + + + CAPILLARY BLOOD GLUCOSE (NO CHG), POC (03/02/2018 3:46 PM PDT) + +---------+ + + + | Component | Value | Ref Range | Performed | Pathologist | | | | | At | Signature | + +---------+ + + + | BLOOD | 126 (H) | 70 - 99 mg/dL | [facility] | | | [facility] | | | [facility] | | | POC | | | [facility] | | | | | | OF CARE | | | | | | TESTS | | + +---------+ + + + + + | Specimen | + + | | + + + + + + + | Performing | Address | City/State/Zipcode | Phone Number | | Organization | | | | + + + + + | [facility] | [address] | [place], [place] | | | [facility] | [address] | [address] | | | TESTS | | | | + + + + + CAPILLARY BLOOD GLUCOSE (NO CHG), POC (03/02/2018 2:36 PM PDT) + +---------+ + + + | Component | Value | Ref Range | Performed | Pathologist | | | | | At | Signature | + +---------+ + + + | BLOOD | 117 (H) | 70 - 99 mg/dL | [facility] | | | [facility], | | | [facility] | | | POC | | | [facility] | | | | | | [facility] CARE | | | | | | TESTS | | + +---------+ + + + + + | Specimen | + + | | + + + + + + + | Performing | Address | City/State/Zipcode | Phone Number | | Organization | | | | + + + + + | [facility] | [address] | [place], [place] | | | [facility] | [address] | [address] | | | TESTS | | | | + + + + + CAPILLARY BLOOD GLUCOSE (NO CHG), POC (03/02/2018 1:33 PM PDT) + +---------+ + + + | Component | Value | Ref Range | Performed | Pathologist | | | | | At | Signature | + +---------+ + + + | BLOOD | 110 (H) | 70 - 99 mg/dL | [facility] | | | [facility], | | | [facility] | | | POC | | | [facility] | | | | | | OF CARE | | | | | | TESTS | | + +---------+ + + + + + | Specimen | + + | | + + + + + + + | Performing | Address | City/State/Zipcode | Phone Number | | Organization | | | | + + + + + | [facility] | [address] | [place], [place] | | | [facility] | [address] | [address] | | | TESTS | | | | + + + + + CAPILLARY BLOOD GLUCOSE (NO CHG), POC (03/02/2018 11:36 AM PDT) + +---------+ + + + | Component | Value | Ref Range | Performed | Pathologist | | | | | At | Signature | + +---------+ + + + | BLOOD | 123 (H) | 70 - 99 mg/dL | [facility] | | | [facility], | | | [facility] | | | POC | | | [facility] | | | | | | OF CARE | | | | | | TESTS | | + +---------+ + + + + + | Specimen | + + | | + + + + + + + | Performing | Address | City/State/Zipcode | Phone Number | | Organization | | | | + + + + + | [facility] | [address] | [place], [place] | | | [facility] | [address] | [address] | | | TESTS | | | | + + + + + CAPILLARY BLOOD GLUCOSE (NO CHG), POC (03/02/2018 10:32 AM PDT) + +---------+ + + + | Component | Value | Ref Range | Performed | Pathologist | | | | | At | Signature | + +---------+ + + + | BLOOD | 120 (H) | 70 - 99 mg/dL | [facility] | | | [facility], | | | [facility] | | | POC | | | [facility] | | | | | | OF CARE | | | | | | TESTS | | + +---------+ + + + + + | Specimen | + + | | + + + + + + + | Performing | Address | City/State/Zipcode | Phone Number | | Organization | | | | + + + + + | [facility] | [address] | [place], [place] | | | [facility] | [address] | [address] | | | TESTS | | | | + + + + + CAPILLARY BLOOD GLUCOSE (NO CHG), POC (03/02/2018 9:23 AM PDT) + +---------+ + + + | Component | Value | Ref Range | Performed | Pathologist | | | | | At | Signature | + +---------+ + + + | BLOOD | 118 (H) | 70 - 99 mg/dL | [facility] | | | [facility], | | | [facility] | | | POC | | | [facility] | | | | | | OF CARE | | | | | | TESTS | | + +---------+ + + + + + | Specimen | + + | | + + + + + + + | Performing | Address | City/State/Zipcode | Phone Number | | Organization | | | | + + + + + | [facility] | [address] | [place], [place] | | | [facility] | [address] | [phone] | | | TESTS | | | | + + + + + CAPILLARY BLOOD GLUCOSE (NO CHG), POC (03/02/2018 8:36 AM PDT) + +---------+ + + + | Component | Value | Ref Range | Performed | Pathologist | | | | | At | Signature | + +---------+ + + + | BLOOD | 110 (H) | 70 - 99 mg/dL | [facility] - | | | GLUCOSE, | | | [facility] | | | POC | | | [facility] | | | | | | OF CARE | | | | | | TESTS | | + +---------+ + + + + + | Specimen | + + | | + + + + + + + | Performing | Address | City/State/Zipcode | Phone Number | | Organization | | | | + + + + + | [facility] | [address] | [place], [place] | | | [facility] | [address] | [address] | | | TESTS | | | | + + + + + CAPILLARY BLOOD GLUCOSE (NO CHG), POC (03/02/2018 7:35 AM PDT) + +-------+ + + + | Component | Value | Ref Range | Performed | Pathologist | | | | | At | Signature | + +-------+ + + + | BLOOD | 92 | 70 - 99 mg/dL | [facility] | | | [facility], | | | [facility] | | | POC | | | [facility] | | | | | | OF CARE | | | | | | TESTS | | + +-------+ + + + + + | Specimen | + + | | + + + + + + + | Performing | Address | City/State/Zipcode | Phone Number | | Organization | | | | + + + + + | [facility] | [address] | [place], [place] | | | [facility] | [address] | [phone] | | | TESTS | | | | + + + + + CAPILLARY BLOOD GLUCOSE (NO CHG), POC (03/02/2018 6:33 AM PDT) + +-------+ + + + | Component | Value | Ref Range | Performed | Pathologist | | | | | At | Signature | + +-------+ + + + | BLOOD | 96 | 70 - 99 mg/dL | [facility] | | | [facility], | | | [facility] | | | POC | | | [facility] | | | | | | OF CARE | | | | | | TESTS | | + +-------+ + + + + + | Specimen | + + | | + + + + + + + | Performing | Address | City/State/Zipcode | Phone Number | | Organization | | | | + + + + + | [facility] | [address] | [place], [place] | | | [facility] | [address] | [address] | | | TESTS | | | | + + + + + CAPILLARY BLOOD GLUCOSE (NO CHG), POC (03/02/2018 5:28 AM PDT) + +---------+ + + + | Component | Value | Ref Range | Performed | Pathologist | | | | | At | Signature | + +---------+ + + + | BLOOD | 110 (H) | 70 - 99 mg/dL | [facility] - | | | GLUCOSE, | | | [facility] | | | POC | | | [facility] | | | | | | OF CARE | | | | | | TESTS | | + +---------+ + + + + + | Specimen | + + | | + + + + + + + | Performing | Address | City/State/Zipcode | Phone Number | | Organization | | | | + + + + + | [facility] | [address] | [place], [place] | | | [facility] | [address] | [phone] | | | TESTS | | | | + + + + + CAPILLARY BLOOD GLUCOSE (NO CHG), POC (03/02/2018 4:36 AM PDT) + +-------+ + + + | Component | Value | Ref Range | Performed | Pathologist | | | | | At | Signature | + +-------+ + + + | BLOOD | 97 | 70 - 99 mg/dL | [facility] - | | | GLUCOSE, | | | [place] | | | POC | | | [facility] | | | | | | OF CARE | | | | | | TESTS | | + +-------+ + + + + + | Specimen | + + | | + + + + + + + | Performing | Address | City/State/Zipcode | Phone Number | | Organization | | | | + + + + + | [facility] | [address] | [place], [place] | | | [facility] | [address] | [phone] | | | TESTS | | | | + + + + + CAPILLARY BLOOD GLUCOSE (NO CHG), POC (03/02/2018 2:46 AM PDT) + +---------+ + + + | Component | Value | Ref Range | Performed | Pathologist | | | | | At | Signature | + +---------+ + + + | BLOOD | 107 (H) | 70 - 99 mg/dL | [facility] - | | | GLUCOSE, | | | [place] | | | POC | | | [facility] | | | | | | OF CARE | | | | | | TESTS | | + +---------+ + + + + + | Specimen | + + | | + + + + + + + | Performing | Address | City/State/Zipcode | Phone Number | | Organization | | | | + + + + + | [facility] | [phone] | [place], [place] | | | [facility] | [facility] [facility] | [address] | | | TESTS | | | | + + + + + CAPILLARY BLOOD GLUCOSE (NO CHG), POC (03/02/2018 12:32 AM PDT) + +---------+ + + + | Component | Value | Ref Range | Performed | Pathologist | | | | | At | Signature | + +---------+ + + + | BLOOD | 110 (H) | 70 - 99 mg/dL | [facility] - | | | GLUCOSE, | | | [place] | | | POC | | | [facility] | | | | | | [facility] C[facility] | | | | | | TESTS | | + +---------+ + + + + + | Specimen | + + | | + + + + + + + | Performing | Address | City/State/Zipcode | Phone Number | | Organization | | | | + + + + + | [facility] | [address] | [place], [place] | | | [facility] | [address] | [phone] | | | TESTS | | | | + + + + + CAPILLARY BLOOD GLUCOSE (NO CHG), POC (03/01/2018 10:31 PM PDT) + +---------+ + + + | Component | Value | Ref Range | Performed | Pathologist | | | | | At | Signature | + +---------+ + + + | BLOOD | 124 (H) | 70 - 99 mg/dL | [facility] - | | | GLUCOSE, | | | [place] | | | POC | | | [facility] | | | | | | OF CARE | | | | | | TESTS | | + +---------+ + + + + + | Specimen | + + | | + + + + + + + | Performing | Address | City/State/Zipcode | Phone Number | | Organization | | | | + + + + + | [facility] | [address] | [place], [place] | | | [facility] | [address] | [phone] | | | TESTS | | | | + + + + + CAPILLARY BLOOD GLUCOSE (NO CHG), POC (03/01/2018 8:21 PM PDT) + +---------+ + + + | Component | Value | Ref Range | Performed | Pathologist | | | | | At | Signature | + +---------+ + + + | BLOOD | 125 (H) | 70 - 99 mg/dL | [facility] - | | | GLUCOSE, | | | [place] | | | POC | | | [facility] | | | | | | OF CARE | | | | | | TESTS | | + +---------+ + + + + + | Specimen | + + | | + + + + + + + | Performing | Address | City/State/Zipcode | Phone Number | | Organization | | | | + + + + + | [facility] | [phone] | [place], [place] | | | [facility] | [facility] | [address] | | | TESTS | | | | + + + + + PROCEDURE NOTE (03/01/2018 6:55 PM PDT)CAPILLARY BLOOD GLUCOSE (NO CHG), POC (03/01/2018 6:12 PM PDT) + +---------+ + + + | Component | Value | Ref Range | Performed | Pathologist | | | | | At | Signature | + +---------+ + + + | BLOOD | 127 (H) | 70 - 99 mg/dL | [facility] - | | | GLUCOSE, | | | [place] | | | POC | | | [facility] | | | | | | OF CARE | | | | | | TESTS | | + +---------+ + + + + + | Specimen | + + | | + + + + + + + | Performing | Address | City/State/Zipcode | Phone Number | | Organization | | | | + + + + + | [facility] | [address] | [place], [place] | | | [facility] | [address] | [phone] | | | TESTS | | | | + + + + + CAPILLARY BLOOD GLUCOSE (NO CHG), POC (03/01/2018 3:31 PM PDT) + +---------+ + + + | Component | Value | Ref Range | Performed | Pathologist | | | | | At | Signature | + +---------+ + + + | BLOOD | 108 (H) | 70 - 99 mg/dL | [facility] | | | GLUCOSE, | | | [place] | | | POC | | | [facility] | | | | | | OF CARE | | | | | | TESTS | | + +---------+ + + + + + | Specimen | + + | | + + + + + + + | Performing | Address | City/State/Zipcode | Phone Number | | Organization | | | | + + + + + | [facility] | [address] | [place], [place] | | | [facility] | [address] | [phone] | | | TESTS | | | | + + + + + CAPILLARY BLOOD GLUCOSE (NO CHG), POC (03/01/2018 3:29 PM PDT) + +-------+ + + + | Component | Value | Ref Range | Performed | Pathologist | | | | | At | Signature | + +-------+ + + + | BLOOD | 74 | 70 - 99 mg/dL | [facility] - | | | GLUCOSE, | | | [place] | | | POC | | | [facility] | | | | | | OF CARE | | | | | | TESTS | | + +-------+ + + + + + | Specimen | + + | | + + + + + + + | Performing | Address | City/State/Zipcode | Phone Number | | Organization | | | | + + + + + | [facility] | [address] | [place], [place] | | | [facility] | [facility] | [phone] | | | TESTS | | | | + + + + + CAPILLARY BLOOD GLUCOSE (NO CHG), POC (03/01/2018 2:30 PM PDT) + +---------+ + + + | Component | Value | Ref Range | Performed | Pathologist | | | | | At | Signature | + +---------+ + + + | BLOOD | 128 (H) | 70 - 99 mg/dL | [facility] - | | | GLUCOSE, | | | [place] | | | POC | | | [facility] | | | | | | OF CARE | | | | | | TESTS | | + +---------+ + + + + + | Specimen | + + | | + + + + + + + | Performing | Address | City/State/Zipcode | Phone Number | | Organization | | | | + + + + + | [facility] | [address] | [place], [place] | | | [facility] | [facility] | [phone] | | | TESTS | | | | + + + + + CAPILLARY BLOOD GLUCOSE (NO CHG), POC (03/01/2018 1:35 PM PDT) + +---------+ + + + | Component | Value | Ref Range | Performed | Pathologist | | | | | At | Signature | + +---------+ + + + | BLOOD | 150 (H) | 70 - 99 mg/dL | [facility] - | | | GLUCOSE, | | | [place] | | | POC | | | [facility] | | | | | | OF CARE | | | | | | TESTS | | + +---------+ + + + + + | Specimen | + + | | + + + + + + + | Performing | Address | City/State/Zipcode | Phone Number | | Organization | | | | + + + + + | [facility] | [address] | [place], [place] | | | [facility] | [address] | [phone] | | | TESTS | | | | + + + + + CAPILLARY BLOOD GLUCOSE (NO CHG), POC (03/01/2018 12:16 PM PDT) + +---------+ + + + | Component | Value | Ref Range | Performed | Pathologist | | | | | At | Signature | + +---------+ + + + | BLOOD | 184 (H) | 70 - 99 mg/dL | [facility] - | | | GLUCOSE, | | | [place] | | | POC | | | [facility] | | | | | | OF CARE | | | | | | TESTS | | + +---------+ + + + + + | Specimen | + + | | + + + + + + + | Performing | Address | City/State/Zipcode | Phone Number | | Organization | | | | + + + + + | [facility] | [address] | [place], [place] | | | [facility] | [address] | [phone] | | | TESTS | | | | + + + + + EGD (ESOPHAGOGASTRODUODENOSCOPY) (03/01/2018 11:21 AM PDT) + + + | Narrative | Performed At | + + + | Ion Castanon MD 03/01/2018 12:25 PM Date of Procedure: | | | 03/01/18 Primary Surgeon: Ion Castanon MD Co Surgeon or | | | materials assistant: Eldon Gonzalez MD, Chief Resident [facility] | | | [facility] Preoperative Diagnosis: Morbid Obesity with BMI 80. 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 Specimens to the Lab: | | | none Antibiotics: 3g Ancef Blood Loss: 40 cc IVF: 1300 cc | | | Procedure Description: The patient was greeted in the | | | preoperative area. Consent was reviewed. The patient walked to | | | the OR suite and laid supine on the operating table. All pressure | | | points were padded. SCDs were in place, turned on, and | | | functioning. A surgical time-out was performed with the operative | | | team. General anesthesia was performed and the patient tolerated | | | this. The abdomen was prepped and draped in the normal standard | | | fashion. The prep was allowed to dry appropriately. A 5mm | | | visiport trocar was used to enter the abdomen via a 5mm right upper | | | quadrant incision. Insufflation was started without incidence. | | | The abdomen was examined and no injuries to surrounding tissue | | | were identified. The patient tolerated insufflation well. An | | | addition 5mm camera port in the epigastric midline 18 cm inferior to | | | xyphoid and a 12mm trocar in the LUQ were placed under direct | | | visualization. The site of entry was up-sized to a 12mm trocar. | | | Finally a 5 mm trocar was placed in the LUQ laterally. All trocars | | | were placed under direct visualization. The abdomen was examined. | | | There was a large incarcerated umbilical hernia containing omentum | | | and small bowel, this was not disturbed. The transverse colon | | | and omentum were attempted to be retracted cranially, unfortunately | | | the omentum was somewhat difficult to elevate. Thus we divided the | | | omentum from lateral up to the transverse colon. The transverse | | | colon was exposed and retracted cranially, the Ligament of Treitz | | | (LOT) was exposed. The jejunum was measured 150cm distal to the LOT. | | | The jejunum was divided with 60 mm [place] stapler with white | | | load and the distal staple line was marked with silk suture. The | | | mesentery was divided with harmonic ultrasonic device. The distal | | | jejunum was measure to 150 cm. A stay-suture was placed at this | | | location to the proximal divided staple line (biliopancreatic limb). | | | Enterotomies were created in each limb and a 60mm [place] stapler | | | with white load was fired to create a [id number] | | | jejunojejunostomy. The anastamosis was confirmed to be widely | | | patent and hemostatic. The common enterotomy was closed by placing | | | 2 stay sutures along the enterotomy for retraction and firing an | | | [place] 60mm stapler with white load across the enterotomy. Care | | | was taken to avoid narrowing of the jejunojejunostomy. A running | | | permanent v-loc suture was used to close the mesenteric defect at | | | this site and lembert the proximal staple closure adjacent to the | | | original enterotomies. The remaining omentum was divided from the | | | edge to the transverse colon to greater gastric curve to allow the | | | nish limb to pass antecolic and antegastric without tension. The | | | omentum was reduced to cover the jejunojejunostomy and tucked | | | posterior to the nish limb. A Nathansen liver retractor was | | | placed in the subxiphoid position. The angle of His was identified | | | and blunt dissection was done to divide the phrenoesophageal | | | ligament. The pouch was measure to 4cm distal to the G-E Junction. | | | A window was created in the lesser curve soft tissue at this | | | location. Dissection was performed with a combination of blunt and | | | harmonic instruments in the retrogastric space until the lesser sac | | | was entered. The 60mm [place] stapler with blue load was placed | | | and fired transversely to start gastric pouch formation. At this | | | point in time, despite communication and confirmation with | | | anesthesia that items were removed from the mouth, we noted the | | | transoral temperature probe to be incorporated into the staple line. | | | This was dissected free from the gastric pouch sharply and this | | | allow anesthesia to remove the probe. The distal aspect was then | | | freed up from the gastric remnant with Harmonic scalpel. A small | | | distal tip of probe, approximately 1.5 cm in length, was removed. | | | This was compared with the divided end of the probe and appeared to | | | be a completely removed. The gastric remnant gastrotomy was | | | approximated with a stay suture for retraction and the closed with a | | | blue load of the 60mm stapler. The [place] was then fired | | | longitudinally towards the angle of His to create the gastric pouch, | | | leaving the gastrotomy from foreign body removal, on the pouch. | | | Dissection was performed retrogastric to connect posterior and | | | anterior dissection planes and ensure adequate fundus exclusion. | | | Additional fires of the [place] stapler were performed with blue | | | loads to create the longitudinal wall of the gastric pouch up to the | | | angle of His. Final load included a seam guard. After division, | | | omentum was tucked over the gastric remnant staple line after it was | | | ensured to be hemostatic. The entire pouch and remnant gastric | | | staple lines were inspected, any areas of ooze were controlled with | | | 5 mm clip dish machine operator. A 25mm Orvil was passed transorally by | | | anesthesia. The OG tube was seen in the pouch and passed through the | | | gastrotomy that was created by removal of the temp probe, to grasp | | | the OG tube. The OG tube was grasped and removed through the left | | | upper quadrant site until the anvil was lodged into the gastric | | | pouch securely. The suture was divided and OG tube removed. A | | | single 2-0 Vicryl suture was used to cinch the mucosa around the | | | anvil, as the defect was slightly enlarged. This allowed good | | | purse-string effect around the anvil. The jejunal staple line on the | | | nish limb was identified with the alondra drain. The jejunal | | | staple line was opened with harmonic scalpel. The left upper | | | quadrant trocar was removed and the incision was extended to 3cm. | | | A wound protector was placed. The EEA stapler was passed into | | | the abdomen and placed into the opened jejunal enterotomy. The | | | spike was advanced and attached to the anvil. The stapler was | | | closed and fired. The EEA stapler was removed and the transoral | | | sutures were removed. The jejunal enterotomy was closed with 60mm | | | [place] stapler with a white load. Medially and laterally, an | | | interrupted 2-0 vicryl suture was placed from gastric pouch to nish | | | limb to relieve tension on the anastomosis. All staple lines with | | | examined for hemostasis and staple integrity. The small amount of | | | jejunal tissue were removed via the wound protector. The wound | | | protector was removed and the fascia was closed with 2 interrupted 0 | | | Vicryl sutures using a transfascial suture passer. The wound was | | | irrigated copiously prior to tying down the sutures. This site was | | | infiltrated with 20cc of local anesthetic. A bowel clamp was | | | placed on the nish limb. An endoscopy was performed with | | | visualization of the gastric pouch, gastrojejunostomy, and jejunal | | | mucosa. All were healthy, hemostatic, and staple lines were intact | | | and strong with insufflation. The entire area was submerged under | | | saline and no bubbling or leakage was seen. A single anti-tension | | | suture, using 2-0 Vicryl, was placed at the medial aspect of the | | | pouch to the nish limb. Irrigation was removed. Omentum was | | | placed circumferentially around the gastrojejunostomy. The clamp | | | and liver retractor were removed. All trocar sites were examined | | | and appeared hemostatic. Trocars were removed. Skin was | | | irrigated and closed with 4-0 monocryl and dermabond. The patient | | | was extubated and transferred to the recovery room in stable | | | condition. I was present for the entirety of this procedure. | | | There was no qualified resident available and Dr. Wagner was present | | | as my materials assistant for the entire procedure, given the technically | | | challenging nature of this procedure. She assisted in all critical | | | steps of the procedure. Dr. Gonzalez was present for endoscopy at the | | | end of the procedure. Ion Castanon MD, FACS, [facility] | | | Bariatric Surgery | | + + + LAPAROSCOPIC GASTRIC BYPASS AND NISH-EN-Y GASTROENTEROSTOMY WITH NISH LIMB 150 CM OR LESS ( 03/01/2018 11:21 AM PDT) + + + | Narrative | Performed At | + + + | Ion Castanon MD 03/01/2018 12:25 PM Date of Procedure: | | | 03/01/18 Primary Surgeon: Ion Castanon MD Co Surgeon or | | | materials assistant: Eldon Gonzalez MD, Chief Resident Alexx | | | [place] MS4 Preoperative Diagnosis: Morbid Obesity with BMI 80. 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 Specimens to the Lab: | | | none Antibiotics: 3g Ancef Blood Loss: 40 cc IVF: 1300 cc | | | Procedure Description: The patient was greeted in the | | | preoperative area. Consent was reviewed. The patient walked to | | | the OR suite and laid supine on the operating table. All pressure | | | points were padded. SCDs were in place, turned on, and | | | functioning. A surgical time-out was performed with the operative | | | team. General anesthesia was performed and the patient tolerated | | | this. The abdomen was prepped and draped in the normal standard | | | fashion. The prep was allowed to dry appropriately. A 5mm | | | visiport trocar was used to enter the abdomen via a 5mm right upper | | | quadrant incision. Insufflation was started without incidence. | | | The abdomen was examined and no injuries to surrounding tissue | | | were identified. The patient tolerated insufflation well. An | | | addition 5mm camera port in the epigastric midline 18 cm inferior to | | | xyphoid and a 12mm trocar in the LUQ were placed under direct | | | visualization. The site of entry was up-sized to a 12mm trocar. | | | Finally a 5 mm trocar was placed in the LUQ laterally. All trocars | | | were placed under direct visualization. The abdomen was examined. | | | There was a large incarcerated umbilical hernia containing omentum | | | and small bowel, this was not disturbed. The transverse colon | | | and omentum were attempted to be retracted cranially, unfortunately | | | the omentum was somewhat difficult to elevate. Thus we divided the | | | omentum from lateral up to the transverse colon. The transverse | | | colon was exposed and retracted cranially, the Ligament of Treitz | | | (LOT) was exposed. The jejunum was measured 150cm distal to the LOT. | | | The jejunum was divided with 60 mm [place] stapler with white | | | load and the distal staple line was marked with silk suture. The | | | mesentery was divided with harmonic ultrasonic device. The distal | | | jejunum was measure to 150 cm. A stay-suture was placed at this | | | location to the proximal divided staple line (biliopancreatic limb). | | | Enterotomies were created in each limb and a 60mm [place] stapler | | | with white load was fired to create a [id number] | | | jejunojejunostomy. The anastamosis was confirmed to be widely | | | patent and hemostatic. The common enterotomy was closed by placing | | | 2 stay sutures along the enterotomy for retraction and firing an | | | [place] 60mm stapler with white load across the enterotomy. Care | | | was taken to avoid narrowing of the jejunojejunostomy. A running | | | permanent v-loc suture was used to close the mesenteric defect at | | | this site and lembert the proximal staple closure adjacent to the | | | original enterotomies. The remaining omentum was divided from the | | | edge to the transverse colon to greater gastric curve to allow the | | | nish limb to pass antecolic and antegastric without tension. The | | | omentum was reduced to cover the jejunojejunostomy and tucked | | | posterior to the nish limb. A Nathansen liver retractor was | | | placed in the subxiphoid position. The angle of His was identified | | | and blunt dissection was done to divide the phrenoesophageal | | | ligament. The pouch was measure to 4cm distal to the G-E Junction. | | | A window was created in the lesser curve soft tissue at this | | | location. Dissection was performed with a combination of blunt and | | | harmonic instruments in the retrogastric space until the lesser sac | | | was entered. The 60mm [place] stapler with blue load was placed | | | and fired transversely to start gastric pouch formation. At this | | | point in time, despite communication and confirmation with | | | anesthesia that items were removed from the mouth, we noted the | | | transoral temperature probe to be incorporated into the staple line. | | | This was dissected free from the gastric pouch sharply and this | | | allow anesthesia to remove the probe. The distal aspect was then | | | freed up from the gastric remnant with Harmonic scalpel. A small | | | distal tip of probe, approximately 1.5 cm in length, was removed. | | | This was compared with the divided end of the probe and appeared to | | | be a completely removed. The gastric remnant gastrotomy was | | | approximated with a stay suture for retraction and the closed with a | | | blue load of the 60mm stapler. The [place] was then fired | | | longitudinally towards the angle of His to create the gastric pouch, | | | leaving the gastrotomy from foreign body removal, on the pouch. | | | Dissection was performed retrogastric to connect posterior and | | | anterior dissection planes and ensure adequate fundus exclusion. | | | Additional fires of the [place] stapler were performed with blue | | | loads to create the longitudinal wall of the gastric pouch up to the | | | angle of His. Final load included a seam guard. After division, | | | omentum was tucked over the gastric remnant staple line after it was | | | ensured to be hemostatic. The entire pouch and remnant gastric | | | staple lines were inspected, any areas of ooze were controlled with | | | 5 mm clip dish machine operator. A 25mm Orvil was passed transorally by | | | anesthesia. The OG tube was seen in the pouch and passed through the | | | gastrotomy that was created by removal of the temp probe, to grasp | | | the OG tube. The OG tube was grasped and removed through the left | | | upper quadrant site until the anvil was lodged into the gastric | | | pouch securely. The suture was divided and OG tube removed. A | | | single 2-0 Vicryl suture was used to cinch the mucosa around the | | | anvil, as the defect was slightly enlarged. This allowed good | | | purse-string effect around the anvil. The jejunal staple line on the | | | nish limb was identified with the alondra drain. The jejunal | | | staple line was opened with harmonic scalpel. The left upper | | | quadrant trocar was removed and the incision was extended to 3cm. | | | A wound protector was placed. The EEA stapler was passed into | | | the abdomen and placed into the opened jejunal enterotomy. The | | | spike was advanced and attached to the anvil. The stapler was | | | closed and fired. The EEA stapler was removed and the transoral | | | sutures were removed. The jejunal enterotomy was closed with 60mm | | | [place] stapler with a white load. Medially and laterally, an | | | interrupted 2-0 vicryl suture was placed from gastric pouch to nish | | | limb to relieve tension on the anastomosis. All staple lines with | | | examined for hemostasis and staple integrity. The small amount of | | | jejunal tissue were removed via the wound protector. The wound | | | protector was removed and the fascia was closed with 2 interrupted 0 | | | Vicryl sutures using a transfascial suture passer. The wound was | | | irrigated copiously prior to tying down the sutures. This site was | | | infiltrated with 20cc of local anesthetic. A bowel clamp was | | | placed on the nish limb. An endoscopy was performed with | | | visualization of the gastric pouch, gastrojejunostomy, and jejunal | | | mucosa. All were healthy, hemostatic, and staple lines were intact | | | and strong with insufflation. The entire area was submerged under | | | saline and no bubbling or leakage was seen. A single anti-tension | | | suture, using 2-0 Vicryl, was placed at the medial aspect of the | | | pouch to the nish limb. Irrigation was removed. Omentum was | | | placed circumferentially around the gastrojejunostomy. The clamp | | | and liver retractor were removed. All trocar sites were examined | | | and appeared hemostatic. Trocars were removed. Skin was | | | irrigated and closed with 4-0 monocryl and dermabond. The patient | | | was extubated and transferred to the recovery room in stable | | | condition. I was present for the entirety of this procedure. | | | There was no qualified resident available and Dr. Wagner was present | | | as my materials assistant for the entire procedure, given the technically | | | challenging nature of this procedure. She assisted in all critical | | | steps of the procedure. Dr. Gonzalez was present for endoscopy at the | | | end of the procedure. Ion Castanon MD, FACS, [facility] | | | Bariatric Surgery | | + + + CAPILLARY BLOOD GLUCOSE (NO CHG), POC (03/01/2018 10:11 AM PDT) + +---------+ + + + | Component | Value | Ref Range | Performed | Pathologist | | | | | At | Signature | + +---------+ + + + | BLOOD | 161 (H) | 70 - 99 mg/dL | [facility] - | | | GLUCOSE, | | | [facility] | | | POC | | | [facility] | | | | | | OF CARE | | | | | | TESTS | | + +---------+ + + + + + | Specimen | + + | | + + + + + + + | Performing | Address | City/State/Zipcode | Phone Number | | Organization | | | | + + + + + | [facility] | [address] | [place], [place] | | | [facility] | [address] | [address] | | | TESTS | | | | + + + + + INTRAPROCEDURE IMAGING (03/01/2018 6:09 AM PDT) + + | Specimen | + + | | + + + + + | Narrative | Performed At | + + + | See admission or procedure notes for details of any intraprocedure | | | images obtained. | | + + + CARDIOLOGY (03/01/2018 12:00 AM PDT) + + + | Narrative | Performed At | + + + | | | + + + documented in this encounter Visit Diagnoses + + | Diagnosis | + + | Morbid obesity (HCC) Morbid obesity | + + documented in this encounter Administered Medications + +--------+ + +------+------+ | Medication Order | MAR | Action | Dose | Rate | Site | | | Action | Date | | | | + +--------+ + +------+------+ | acetaminophen (TYLENOL) tablet | Given | 03/03/20 | 1,000 mg | | | | 1,000 mg 1,000 mg, oral, EVERY 6 | | 18 12:12 | | | | | HOURS NEEDED, Starting Tue | | PM PDT | | | | | 03/02/18 at 1400, Until 03/03/18 | | | | | | | at 1930, mild pain, fever, | | | | | | | multimodal pain control | | | | | | + +--------+ + +------+------+ +-------+ + +---+---+ | Given | 03/03/20 | 1,000 mg | | | | | 18 6:28 | | | | | | AM PDT | | | | +-------+ + +---+---+ +---+---+ | | | +---+---+ + +-------+ +-------+---+---+ | aspirin EC tablet 81 mg 81 mg, | Given | 03/03/20 | 81 mg | | | | oral, DAILY, First dose on Thu | | 18 8:50 | | | | | 03/02/18 at 0900, Until | | AM PDT | | | | | Discontinued | | | | | | + +-------+ +-------+---+---+ +-------+ +-------+---+---+ | Given | 03/02/20 | 81 mg | | | | | 18 8:40 | | | | | | AM PDT | | | | +-------+ +-------+---+---+ +---+---+ | | | +---+---+ + +-------+ +-------+---+---+ | atenolol (TENORMIN) tablet 25 | Given | 03/03/20 | 25 mg | | | | mg 25 mg, oral, TWICE DAILY, | | 18 8:50 | | | | | First dose on Thu03/01/18 at 2100, | | AM PDT | | | | | Until Discontinued | | | | | | + +-------+ +-------+---+---+ +-------+ +-------+---+---+ | Given | 03/02/20 | 25 mg | | | | | 18 8:12 | | | | | | PM PDT | | | | +-------+ +-------+---+---+ | Given | 03/02/20 | 25 mg | | | | | 18 8:40 | | | | | | AM PDT | | | | +-------+ +-------+---+---+ +---+---+ | | | +---+---+ + +-------+ +-------+---+ + | bupivacaine | Given | 03/01/20 | 50 mL | | Surgical | | (MARCAINE,SENSORCAINE) 0.25 % | | 18 11:39 | | | Site | | (2.5 mg/mL) injection | | AM PDT | | | | | INTRAPROCEDURE PRN, Starting Mon | | | | | | | 03/01/18 at 1139, Until 03/01/18 | | | | | | | at 1209 | | | | | | + +-------+ +-------+---+ + + +---+ | | | + +---+ | dextrose 50 % in water IV 25 mL | | | 25 mL, intravenous, NEEDED, | | | Starting 03/02/18 at 1556, | | | Until 03/03/18 at 1930, CBG | | | less than 70 mg/dL if patient | | | unable to take PO, per Adult | | | Hypoglycemia Protocol | | + +---+ | | | + +---+ + +-------+ +-------+---+---------+ | enoxaparin (LOVENOX) injection | Given | 03/03/20 | 40 mg | | Abdomen | | 40 mg 40 mg, subcutaneous, EVERY | | 18 8:51 | | | | | 12 HOURS, First dose on Mon | | AM PDT | | | | | 03/01/18 at 2100, Until | | | | | | | Discontinued | | | | | | + +-------+ +-------+---+---------+ +-------+ +-------+---+---------+ | Given | 03/02/20 | 40 mg | | Abdomen | | | 18 8:12 | | | | | | PM PDT | | | | +-------+ +-------+---+---------+ | Given | 03/02/20 | 40 mg | | Abdomen | | | 18 8:42 | | | | | | AM PDT | | | | +-------+ +-------+---+---------+ +---+---+ | | | +---+---+ + +-------+ +-------+---+---+ | FLUoxetine (PROZAC) capsule 60 | Given | 03/02/20 | 60 mg | | | | mg 60 mg, oral, AT BEDTIME, | | 18 10:28 | | | | | First dose on Thu03/01/18 at 2200, | | PM PDT | | | | | Until Discontinued | | | | | | + +-------+ +-------+---+---+ +-------+ +-------+---+---+ | Given | 03/01/20 | 60 mg | | | | | 18 10:31 | | | | | | PM PDT | | | | +-------+ +-------+---+---+ +---+---+ | | | +---+---+ + +-------+ +--------+---+---+ | gabapentin (NEURONTIN) liquid | Given | 03/03/20 | 300 mg | | | | 300 mg 300 mg, oral, FOUR TIMES | | 18 8:50 | | | | | DAILY, First dose on 03/01/18 | | AM PDT | | | | | at 1800, Until Discontinued | | | | | | + +-------+ +--------+---+---+ +-------+ +--------+---+---+ | Given | 03/02/20 | 300 mg | | | | | 18 8:12 | | | | | | PM PDT | | | | +-------+ +--------+---+---+ | Given | 03/02/20 | 300 mg | | | | | 18 5:41 | | | | | | PM PDT | | | | +-------+ +--------+---+---+ + +---+ | | | + +---+ | glucagon (GLUCAGEN) injection 1 | | | mg 1 mg, intramuscular, | | | NEEDED, Starting Thu03/02/18 at | | | 1556, Until Thu03/03/18 at 1930, | | | CBG less than 70 mg/dL per Adult | | | Hypoglycemia Protocol | | + +---+ | | | + +---+ | glucose chewable tablet 16 g | | | 16 g, oral, NEEDED, Starting | | | Thu03/02/18 at 1556, Until Thu | | | 03/03/18 at 1930, CBG less than 70 | | | mg/dL per Adult Hypoglycemia | | | Protocol | | + +---+ | | | + +---+ + +-------+ +--------+---+---+ | HYDROmorphone (DILAUDID) | Given | 03/02/20 | 0.5 mg | | | | injection 0.5-1 mg 0.5-1 mg, | | 18 4:51 | | | | | intravenous, EVERY 2 HOURS | | PM PDT | | | | | NEEDED, Starting Thu03/02/18 at | | | | | | | 1630, Until Thu03/03/18 at 1930, | | | | | | | severe pain | | | | | | + +-------+ +--------+---+---+ +---+---+ | | | +---+---+ + +-------+ + +---+ + | insulin glargine (LANTUS) | Given | 03/03/20 | 28 Units | | Left Arm | | injection 28 Units 28 Units, | | 18 10:03 | | | | | subcutaneous, EVERY MORNING, | | AM PDT | | | | | First dose on Thu03/03/18 at 0945, | | | | | | | Until Discontinued | | | | | | + +-------+ + +---+ + + +---+ | | | + +---+ | insulin lispro (HUMALOG) | | | injection subcutaneous, WITH | | | MEALS AND BEDTIME, First dose on | | | 03/02/18 at 1745, Until | | | Discontinued | | + +---+ | | | + +---+ + + + +---------+---+---------+ | lidocaine (LIDODERM) 5 % patch | Applied | 03/03/20 | 1 patch | | Abdomen | | 1 patch 1 patch, transdermal, | Patch | 18 8:51 | | | | | EVERY 24 HOURS, First dose on Tue | | AM PDT | | | | | 03/02/18 at 0845, Until | | | | | | | Discontinued | | | | | | + + + +---------+---+---------+ + + +---------+---+---------+ | Applied Patch | 03/02/20 | 1 patch | | Abdomen | | | 18 8:41 | | | | | | AM PDT | | | | + + +---------+---+---------+ +---+---+ | | | +---+---+ + +-------+ +--------+---+---+ | magnesium oxide (MAG-OX) tablet | Given | 03/03/20 | 400 mg | | | | 400 mg 400 mg, oral, DAILY, | | 18 8:50 | | | | | First dose on Thu03/01/18 at 1400, | | AM PDT | | | | | Until Discontinued | | | | | | + +-------+ +--------+---+---+ +-------+ +--------+---+---+ | Given | 03/02/20 | 400 mg | | | | | 18 8:40 | | | | | | AM PDT | | | | +-------+ +--------+---+---+ | Given | 03/01/20 | 400 mg | | | | | 18 5:02 | | | | | | PM PDT | | | | +-------+ +--------+---+---+ +---+---+ | | | +---+---+ + +-------+ +---+---+---+ | nystatin (MYCOSTATIN) cream | Given | 03/01/20 | | | | | topical, TWICE DAILY, First dose | | 18 5:02 | | | | | on Thu03/01/18 at 1630, Until | | PM PDT | | | | | Discontinued | | | | | | + +-------+ +---+---+---+ +---+---+ | | | +---+---+ + +-------+ +---+---+---+ | nystatin (MYCOSTATIN) powder | Given | 03/02/20 | | | | | topical, TWICE DAILY, First dose | | 18 8:14 | | | | | on Thu03/01/18 at 1415, Until | | PM PDT | | | | | Discontinued | | | | | | + +-------+ +---+---+---+ +-------+ +---+---+---+ | Given | 03/02/20 | | | | | | 18 8:42 | | | | | | AM PDT | | | | +-------+ +---+---+---+ | Given | 03/01/20 | | | | | | 18 8:50 | | | | | | PM PDT | | | | +-------+ +---+---+---+ +---+---+ | | | +---+---+ + +-------+ +-------+---+---+ | OLANZapine (ZYPREXA) tablet 30 | Given | 03/02/20 | 30 mg | | | | mg 30 mg, oral, AT BEDTIME, | | 18 10:27 | | | | | First dose on Thu03/01/18 at 2200, | | PM PDT | | | | | Until Discontinued | | | | | | + +-------+ +-------+---+---+ +-------+ +-------+---+---+ | Given | 03/01/20 | 30 mg | | | | | 18 10:31 | | | | | | PM PDT | | | | +-------+ +-------+---+---+ +---+---+ | | | +---+---+ + +-------+ +-------+---+---+ | omeprazole (PRILOSEC) capsule | Given | 03/03/20 | 20 mg | | | | 20 mg 20 mg, oral, DAILY, First | | 18 8:50 | | | | | dose on Thu03/01/18 at 1415, Until | | AM PDT | | | | | Discontinued | | | | | | + +-------+ +-------+---+---+ +-------+ +-------+---+---+ | Given | 03/02/20 | 20 mg | | | | | 18 8:40 | | | | | | AM PDT | | | | +-------+ +-------+---+---+ | Given | 03/01/20 | 20 mg | | | | | 18 5:02 | | | | | | PM PDT | | | | +-------+ +-------+---+---+ +---+---+ | | | +---+---+ + +-------+ +------+---+---+ | ondansetron (ZOFRAN) injection | Given | 03/02/20 | 4 mg | | | | 4 mg 4 mg, intravenous, EVERY 12 | | 18 12:36 | | | | | HOURS NEEDED, Starting Mon | | AM PDT | | | | | 03/01/18 at 1730, Until 03/03/18 | | | | | | | at 1930, nausea/vomiting, first | | | | | | | line | | | | | | + +-------+ +------+---+---+ +---+---+ | | | +---+---+ + +-------+ +-------+---+---+ | oxyCODONE (immediate release) | Given | 03/03/20 | 15 mg | | | | (ROXICODONE) liquid 5-15 mg 5-15 | | 18 12:31 | | | | | mg, oral, EVERY 3 HOURS | | PM PDT | | | | | NEEDED, Starting Thu03/01/18 at | | | | | | | 1343, Until Thu03/03/18 at 1930, | | | | | | | moderate pain | | | | | | + +-------+ +-------+---+---+ +-------+ +-------+---+---+ | Given | 03/03/20 | 15 mg | | | | | 18 9:31 | | | | | | AM PDT | | | | +-------+ +-------+---+---+ | Given | 03/03/20 | 15 mg | | | | | 18 6:19 | | | | | | AM PDT | | | | +-------+ +-------+---+---+ +---+---+ | | | +---+---+ + + + +---+---+---+ | probiotic yogurt (ZARIA'S | Given - | 03/03/20 | | | | | YOGURT) oral, TWICE DAILY, First | Food | 18 8:52 | | | | | dose on Thu03/02/18 at 0900, | | AM PDT | | | | | Until Discontinued | | | | | | + + + +---+---+---+ + + +---+---+---+ | Given - Food | 03/02/20 | | | | | | 18 8:11 | | | | | | PM PDT | | | | + + +---+---+---+ | Given - Food | 03/02/20 | | | | | | 18 8:42 | | | | | | AM PDT | | | | + + +---+---+---+ +---+---+ | | | +---+---+ + +-------+ +-------+---+---+ | simethicone chew (MYLICON) | Given | 03/03/20 | 80 mg | | | | tablet 80 mg 80 mg, oral, FOUR | | 18 12:12 | | | | | TIMES DAILY NEEDED, Starting | | PM PDT | | | | | 03/01/18 at 1203, Until Wed | | | | | | | 03/03/18 at 1930, bloating, | | | | | | | gas/bloating | | | | | | + +-------+ +-------+---+---+ +-------+ +-------+---+---+ | Given | 03/03/20 | 80 mg | | | | | 18 3:40 | | | | | | AM PDT | | | | +-------+ +-------+---+---+ | Given | 03/03/20 | 80 mg | | | | | 18 12:15 | | | | | | AM PDT | | | | +-------+ +-------+---+---+ +---+---+ | | | +---+---+ + +-------+ +-------+---+---+ | thyroid tablet 30 mg 30 mg, | Given | 03/03/20 | 30 mg | | | | oral, DAILY, First dose on Thu | | 18 6:20 | | | | | 18 at 0700, Until | | AM PDT | | | | | Discontinued | | | | | | + +-------+ +-------+---+---+ +-------+ +-------+---+---+ | Given | 03/02/20 | 30 mg | | | | | 18 7:33 | | | | | | AM PDT | | | | +-------+ +-------+---+---+ +---+---+ | | | +---+---+ + +-------+ +-------+---+---+ | topiramate (TOPAMAX) tablet 50 | Given | 03/03/20 | 50 mg | | | | mg 50 mg, oral, TWICE DAILY, | | 18 8:50 | | | | | First dose on Thu03/01/18 at 1400, | | AM PDT | | | | | Until Discontinued | | | | | | + +-------+ +-------+---+---+ +-------+ +-------+---+---+ | Given | 03/02/20 | 50 mg | | | | | 18 8:12 | | | | | | PM PDT | | | | +-------+ +-------+---+---+ | Given | 03/02/20 | 50 mg | | | | | 18 8:40 | | | | | | AM PDT | | | | +-------+ +-------+---+---+ +---+---+ | | | +---+---+ + +-------+ +--------+---+---+ | traZODone (DESYREL) tablet 150 | Given | 03/02/20 | 150 mg | | | | mg 150 mg, oral, AT BEDTIME, | | 18 10:27 | | | | | First dose on Thu03/01/18 at 2200, | | PM PDT | | | | | Until Discontinued | | | | | | + +-------+ +--------+---+---+ +-------+ +--------+---+---+ | Given | 03/01/20 | 150 mg | | | | | 18 10:31 | | | | | | PM PDT | | | | +-------+ +--------+---+---+ +---+---+ | | | +---+---+ documented in this encounter
--- OUTSIDE RECORDS SUMMARY | ~2019-05-20 | XMS | Encounter Summary ---
Demographics + + + | Address | [address] | | | [place] [address] | + + + | Home Phone | | + + + | Preferred Language | Unknown | + + + | Marital Status | Single | + + + | Amish Affiliation | NON | + + + | Race | White | + + + | Ethnic Group | Not or | + + + Author + + + | Author | [facility] | + + + | Organization | [facility] | + + + | Address | Unknown | + + + | Phone | Unavailable | + + + Support + + + + + | Name | Relationship | Address | Phone | + + + + + | Katalina Padilla | ECON | [address] | | | | | [place], [place] | | | | | [address] | | + + + + + | Ellie Vang | ECON | Unknown | | + + + + + Care Team Providers + +------+ + | Care Sound Engineer Name | Role | Phone | + +------+ + | Fadi Goodrich DO | PCP | | + +------+ + Reason for Visit + + + | Reason | Comments | + + + | Bariatric Nutrition | | + + + Consultation (Routine) +--------+ + + + + + | Status | Reason | Specialty | Diagnoses / | Referred By | Referred To | | | | | Procedures | Contact | Contact | +--------+ + + + + + | Closed | BAR: | Nutrition | Diagnoses | Tiny, | Amadeo, | | | Scheduled | | Essential | MD Randell | [place] | | | with ED TEACHER | | hypertension | [address] | | | | | Right | [address] | [place] | | | | | heart | [place], [place] | [place], | | | | | failure | [address] | [place] | | | | | ([facility]) Type | Phone: | [phone] | | | | | 2 diabetes | [phone] | | | | | | mellitus | Fax: | | | | | | without | [phone] | | | | | | complication | | | | | | | , with | | | | | | | long-term | | | | | | | current use | | | | | | | of insulin | | | | | | | ([facility]) | | | +--------+ + + + + + Encounter Details +--------+---------+ + + + | Date | Type | Department | Care Team | Description | +--------+---------+ + + + | 04/01/ | Office | Digestive Health | Dione Andre, | History of Frandy-en-Y | | 2018 | Visit | Center at [facility] [address] | gastric bypass | | | | [address] | [facility] [facility] [address] | (Primary Dx); | | | | Mailcode: Center | [place], [place] | 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[facility] and | [address] | with insulin therapy | | | | [address] | | ([facility]) | | | | [place], [place] | | | | | | [address] | | | | | | [phone] | | | +--------+---------+ + + + [...] Blood Pressure | - | - | | + + + + + | Pulse | - | - | | + [...] + + + + | Weight | 158.2 kg (348 lb | 04/01/2018 10:36 AM | | | | 11.2 oz) | PDT | | + + + + + | Height | - | - | | + + + + + | Body Mass Index | 70.43 | 03/10/2018 3:26 PM | | | | | PDT [...] documented as of this encounter Progress Notes Dione Andre, RD - 04/01/2018 10:30 AM PDTFormatting of this note might be different fr om the original. Nutrition Counseling: Post-op Bariatric Surgery Follow-Up Patient referred by: Randell Franks MD [address] [place] [address] Documented time of visit: 10:33 to 10:55 (22 minutes [id number] with patient) Surgery: Gastric Bypass Date of Surgery: 03/01/18 Subjective: Having trouble with soft food, vomiting 1x/day. Ground chicken + egg on top and plain ground chicken caused vomiting. Denies food dryness. Eating 1/2 cups of ground chicke n or 2 eggs at one sitting. Has a UTI and is dehydrated. Any reported changes: vomiting and constipation, last BM 4-5 days, only used miralax a coup le time. Tolerating Bariatric Diet: Yes Current Physical Activity: walking Objective: Ht Readings from Last 1 Encounters: 03/10/18 1.499 m (4' 11") Wt Readings from Last 2 Encounters: 04/01/18 158.2 kg (348 lb 11.2 oz) 03/10/18 164 kg (361 lb 8 oz) 03/10/18 163.9 kg (361 lb 4.8 oz) 03/01/18 169.1 kg (372 lb 12.8 oz) Body mass index is 70.43 kg/m. Weight change since surgery: lost 24 lbs PMHx: Past Medical History: Diagnosis Date Abdominal pain Abnormal ThinPrep Pap test of vagina Allergic rhinitis Anemia Anxiety Bipolar disorder ([facility]) Chronic wound infection of abdomen from 2010 Cough Depression Diverticulitis of colon Dizziness Glaucoma Heart burn Hemorrhoids Hernia of abdominal wall Incisional hernia, incarcerated 2012 Insomnia Irregular periods Kidney stone Leaking of urine Leg sore Lymphedema Morbid obesity with body mass index of 70 and over in adult ([facility]) Myalgia and myositis Nausea Neck pain Numbness Osteoarthritis of knee Palpitations Pneumonia Shortness of breath Staphylococcal infection Stroke ([facility]) TIA (transient ischemic attack) due to Bromocriptine Tinea corporis UTI (urinary tract infection) Food logs: Yes-pen and paper Food choices: ground chicken, eggs, creamed soups (mushroom or tomato), cream of wheat occ, cottage cheese, north korean yogurt-light and fit, protein bar from [employer]. Unable to keep protei n shakes down. Fluid choices: water-4-5 bottles per day Supplementation: Flinstones, iron, vitamin D, vitamin C, Citracal supplement x 2 in the mor eusebio and 2 at night, magnesium, potassium, [id number] today Assessment: Vomiting likely due to volume of food. Encouraged patient to eat smaller amount s more frequently and make sure the food is moist. Following Bariatric Diet Protocol: Yes Meeting protein goals: No, ~30 grams Meeting fluid goals: Yes Fluids from meals: Yes Plan: Reviewed nutrition goals after bariatric surgery. Aim for 64 ounces of fluid and 60-80 grams of protein per day. Continue to follow post-surgery bariatric diet progression: Continue stage 3 according to b ariatric diet guidelines -Provided written & verbal education/review on stage 3 guidelines, including grocery list of stage 3 foods -Continue introducing soft/ground/moist protein foods -Once meeting protein goal consistently, gradually add up to 1/2 cup per meal of soft/cook ed fruits, vegetables, or starches -Continue to eat protein foods first; stop eating as soon as you begin to feel full -Add new foods one at a time -Avoid red meats, hard/crunchy foods, breads, rice, and pasta until 3 months post-surgery -Choose foods with < 14 g sugar & < 5 g fat per serving -Continue fluids from meals by 30 minutes before & after Continue vitamin & mineral supplementation per post-bariatric surgery guidelines -complete multivitamin & mineral (with iron) supplement, 2/day -1153-5507 mg calcium citrate with vitamin D/day (take in divided doses, not within 2 hour s of multivitamin or iron supplement) -500 mcg/day sublingual B12 supplement (or monthly injections) Continued to reinforce importance of mindful eating. Continue to increase physical activity. Follow up in [address],[place] Pager# [phone] Phone: [phone] documented in this e ncounter Plan of Treatment +--------+ + + + + | Date | Type | Specialty | Care Team | Description | +--------+ + + + + | 06/27/ | Telephone-S | Pre-operative | | | | 2019 | cheduled | Medicine | | | +--------+ + + + + | 06/30/ | Office | Cardiology | TinyRandell, | | | 2019 | Visit | | [address] | | | | | | [place], [place] | | | | | | [address] | | | | | | [phone] | | | | | | | [...] | + +--------+ + + + | [place] [facility] RE-ASSESSMNT | Routin | 04/01/2018 | History of | | | X15MIN | e | 12:23 PM | Frandy-en-Y gastric | | | | | PDT | bypass Diabetes | | | | | | mellitus with | | | | | | insulin therapy | | | | | | (HCC) | | + +--------+ + + + documented in this encounter Visit Diagnoses + + | Diagnosis | + + | History of Frandy-en-Y gastric bypass - Primary Bariatric surgery status | + + | Diabetes mellitus with insulin therapy ([facility]) | + + documented in this encounter
--- OUTSIDE RECORDS SUMMARY | ~2019-05-20 | XMS | Encounter Summary ---
Demographics + + + | Address | [address] | | | [place] [address] | + + + | Home Phone | | + + + | Preferred Language | Unknown | + + + | Marital Status | Single | + + + | Yazdanism Affiliation | NON | + + + [...] + | Katalina Padilla | ECON | [address] | | | | | [place], [place] | | | | | [address] | | + + + + + | Ellie Vang | ECON | Unknown | | + + + + + Care Team Providers + +------+ + | Care Night Clerk Auditor Name | Role | Phone | + [...] | 2015 | Visit | Center at [facility] [address] | | (Primary Dx) | | | | [address] | | | | | | Mailcode: Center | | | | | | for Health and | | | | | | [facility] [address] | | | | | | [place], [place] | | | | | | [address] | | | | | | [phone] | | | +--------+---------+ + + + [...] of Class: 2:00 until 3:00 (60 minutes [id number] with patient) OBJECTIVE: Height: Ht Readings from [...] or sharing information. Yes Yuli Childs RD, [facility], [place] Pager# [phone] documented in this enc ounter Plan of Treatment +--------+ + + + [...] | | 2018 | Visit | | [address] | | | | | | [place], [place] | | | | | | [address] | | | | | | [phone] | | | | | | | [...]
--- OUTSIDE RECORDS SUMMARY | ~2019-05-20 | XMS | Encounter Summary ---
Demographics + + + | Address | [address] | | | [place] [address] | + + + | Home Phone | | + + + | Preferred Language | Unknown | + + + | Marital Status | Single | + + + | Gnosticist Affiliation | NON | + + + [...] + | Katalina Padilla | ECON | [address] | | | | | [place], [place] | | | | | [address] | | + + + + + | Ellie Vang | ECON | Unknown | | + + + + + Care Team Providers + +------+ + | Care Rug Setter [place] Name | Role | Phone | + +------+ + | Fadi Goodrich DO | PCP | | + +------+ + Reason for Visit + + + | Reason | Comments | + + + | Medical Records | Letter from telephonic nurse case manager. | | Review | | + + + Encounter Details +--------+ + + + + | Date | Type | Department | Care Team | Description | +--------+ + + + + | 11/08/ | Abstract | Digestive Health | Shereen Georges, | Medical Records | | 2015 | | Center at [facility] [address] | [facility] [address] | Review (Letter from | | | | [address] | [place], [place] | telephonic nurse case manager. ) | | | | Mailcode: [place] | [address] | | | | | [facility] | [phone] | | | | | [address] [place] [address] | | | | | | [place], [place] | | | | | | [address] | | | | | | [phone] | | | +--------+ + + + [...] | | | | | [place], [place] | | | | | | [address] | | | | | | [phone] | | | | | | | | +--------+ + + + + | 07/08/ | Procedure | Surgery | | | | 2018 | Pass | | | | +--------+ + + + + documented as of this encounter Visit Diagnoses Not on filedocumented in this encounter"
--- OUTSIDE RECORDS SUMMARY | ~2019-05-20 | XMS | Encounter Summary ---
Demographics + + + | Address | [address] | | | [place] [address] | + + + | Home Phone | | + + + | Preferred Language | Unknown | + + + | Marital Status | | + + + | Pentecostalism Affiliation | Unknown | + + + | Race | Unknown | + + + | Ethnic Group | Unknown | + + + Author + + + | Author | [facility] (Historical as of | | | 03-12-19) | + + + | Organization | [facility] (Historical as of | | | 03-12-19) | + + + | Address | Unknown | + + + | Phone | Unavailable | + + + Support + + +---------+ + | Name | Relationship | Address | Phone | + + +---------+ + | Katalina Padilla | ECON | Unknown | | + + +---------+ + | AnibalEllie | ECON | Unknown | | + + +---------+ + | Ila Flores | ECON | Unknown | | + + +---------+ + Care Team Providers + +------+ + | Care Box Fabricator Name | Role | Phone | + +------+ + | Kenyatta Cardenas MD | PCP | | + +------+ + Encounter Details +--------+ + + + + | Date | Type | Department | Care Team | Description | +--------+ + + + + | 02/22/ | Ancillary | [facility] | Sulema Altamirano | History of sinus | | 2018 | Procedure | ECHO | [address] | tachycardia; HTN, | | | | | Ya Islsa F | goal below 130/80; | | | | | [place] [address] | Chronic diastolic | | | | | [phone] | heart failure (HCC); | | | | | | History of | | | | | | bariatric surgery | +--------+ + + + + Social [...] Treatment Not on fileas of this encounter Procedures + +--------+ + + + | Procedure Name | Priori | Date/Time | Associated Diagnosis | Comments | | | ty | | | | + +--------+ + + + | ECHO OUTSIDE | Routin | 02/22/2019 | History of sinus | Results for this | | INTERPRETATION | e | 3:17 PM | tachycardia HTN, | procedure are in the | | STANDARD | | PDT | goal below 130/80 | results section. | | | | | Chronic diastolic | | | | | | heart failure (HCC) | | | | | | History of | | | | | | bariatric surgery | | + +--------+ + + + in this encounter Results ECHO outside interpretation standard (02/22/2019 3:17 PM) + + + | Impressions | Performed At | + + + | 1. Overall left ventricular systolic function is normal with, an EF | [facility] | | between 65 - 70 %. 2. The right ventricle is normal in size and | RADIOLOGY | | function. 3. Pulmonary artery systolic pressure could not be assessed | | | due to the absence of adequate TR jet. 4. There is no pericardial | | | effusion. | | + + + + + + | Narrative | Performed At | + + + | Patient Name: Elzbieta Cristina Date of : 1975 | [facility] | | Performing Physician: Darryl Merrill | RADIOLOGY | | | | | INDICATIONS Sinus Tachycardia CONCLUSIONS | | | 1. Overall left ventricular systolic function is normal | | | with, an EF between 65 - 70 %. 2. The right ventricle is normal in | | | size and function. 3. Pulmonary artery systolic pressure could not be | | | assessed due to the absence of adequate TR jet. 4. There is no | | | pericardial effusion. FINDINGS -------- ECG rhythm: Sinus | | | rhythm. Study: A 2-dimensional transthoracic echocardiogram with | | | m-mode, spectral and color flow Doppler was perfomed. Study: This | | | was a technically adequate study. Left Ventricle: Overall left | | | ventricular systolic function is normal with, an EF between 65 - 70 %. | | | Left Ventricle: The left ventricle cavity size is normal. Left | | | Ventricle: Left ventricular wall thickness is normal. Left | | | Ventricle: No regional wall motion abnormalities. Left Ventricle: | | | The diastolic filling pattern is normal for the age of the patient. | | | Right Ventricle: The right ventricle is normal in size and function. | | | Left Atrium: The left atrium is normal in size. Right Atrium: The | | | right atrium is normal in size. Aortic Valve: The aortic valve | | | appears to be trileaflet. Aortic Valve: The aortic valve is mildly | | | calcified. Aortic Valve: There is no evidence of aortic | | | regurgitation. Aortic Valve: There is no evidence of aortic | | | stenosis. Mitral Valve: Normal appearing mitral valve. Tricuspid | | | Valve: The tricuspid valve appears structurally normal. Tricuspid | | | Valve: Pulmonary artery systolic pressure could not be assessed due to | | | the absence of adequate TR jet. Pulmonic Valve: The pulmonic valve | | | was not well visualized. Pericardium: There is no pericardial | | | effusion. Pericardium: No pleural effusion seen. IVC/Hepatic Veins: | | | The IVC is normal size (1.5-2.5cm) and collapses >50% with sniff, | | | consistent with central venous pressures of 5-10mmHg. Aorta: | | | Ascending aorta not well seen. MEASUREMENTS Ao | | | Diam: 3.21 cm Ao sinus: 3.[address] junct: 3.05 cm | | | IVC: 1.54 cm LA Major: 3.90 cm EDV(Teich): 102.71 ml | | | IVSd: 0.92 cm LVIDd: 4.70 cm LVPWd: 0.79 cm LVOT | | | Area: 3.58 cm2 LVOT Diam: 2.13 cm %FS: 39.25 % | | | EF(Teich): 69.70 % ESV(Teich): 31.11 ml LVIDs: 2.85 cm | | | SV(Teich): 71.60 ml RA Major: 4.15 cm RV Major: 6.85 cm | | | RV Minor: 2.73 cm RVIDd: 2.75 cm LVEF MOD A2C: 64.28 % | | | SV MOD A2C: 67.83 ml LVEF MOD A4C: 64.07 % SV MOD A4C: | | | 70.91 ml EF Biplane: 65.73 % LVEDV MOD BP: 116.32 ml LVESV | | | MOD BP: 39.85 ml LVEDV MOD A2C: 105.51 ml LVLd A2C: 9.58 | | | cm LVEDV MOD A4C: 110.66 ml LVLd A4C: 8.22 cm LVESV MOD | | | A2C: 37.68 ml LVLs A2C: 7.26 cm LVESV MOD A4C: 39.75 ml | | | LVLs A4C: 6.79 cm LAESV(A-L): 30.33 ml LAESV Index | | | (A-L): 14.72 ml/m2 LAAs A2C: 10.03 cm2 LAESV A-L A2C: | | | 22.69 ml LALs A2C: 3.76 cm LAAs A4C: 13.41 cm2 LAESV A-L | | | A4C: 36.80 ml LALs A4C: 4.14 cm RAAs: 11.18 cm2 RAESV | | | A-L: 22.84 ml RAESV MOD: 22.10 ml RALs: 4.64 cm | | | TAPSE: 2.04 cm AV maxP.55 mmHg AV meanP.52 mmHg | | | AV Vmax: 1.27 m/s AV Vmean: 0.88 m/s AV VTI: 26.50 cm | | | ADALID Vmax: 2.49 cm2 ADALID (VTI): 2.39 cm2 AVAI Vmax: 0.00 | | | cm2/m2 AVAI (VTI): 0.00 cm2/m2 LVOT maxP.17 mmHg LVOT | | | meanP.82 mmHg LVSI Dopp: 30.83 ml/m2 LVSV Dopp: | | | 63.52 ml LVOT Vmax: 0.89 m/s LVOT Vmean: 0.65 m/s LVOT | | | VTI: 17.71 cm MV A Jeffrey: 0.61 m/s MV Dec Woodward: 2.43 m/s2 | | | MV DecT: 247.51 ms MV E Jeffrey: 0.60 m/s MV E/A Ratio: | | | 0.98 MV PHT: 71.78 ms MVA By PHT: 3.06 cm2 Septal e': | | | 0.06 m/s Septal E/e': 9.54 Lateral e': 0.10 m/s Lateral | | | E/e': 5.84 RAP: 5 mmHg RV s': 0.11 m/s Dental Chair Assembler: | | | DH Authenticated by: Darryl [facility] Report Date/Time: 02-22-2019 | | | 20:8:36 | | + + + + --------+ | Procedure Note | + --------+ | Aditya, Rad Results In - 02/22/2019 8:10 PM PDT Patient Name: Sherrell Cristina | | : 1975Accession: [id number] Physician: Darryl | | Alsamara INDICATIONS------ | | -----Sinus TachycardiaCONCLUSIONS 1. Overall left ventricular systolic | | function is normal with, an EF between 65 - 70 %.2. The right ventricle is normal in | | size and function.3. Pulmonary artery systolic pressure could not be assessed due to the | | absence of adequate TR jet.4. There is no pericardial effusion.FINDINGS--------ECG | | rhythm: Sinus rhythm.Study: A 2-dimensional transthoracic echocardiogram with m-mode, | | spectral and color flow Doppler was perfomed. Study: This was a technically adequate | | study.Left Ventricle: Overall left ventricular systolic function is normal with, an EF | | between 65 - 70 %. Left Ventricle: The left ventricle cavity size is normal. Left | | Ventricle: Left ventricular wall thickness is normal. Left Ventricle: No regional wall | | motion abnormalities. Left Ventricle: The diastolic filling pattern is normal for the | | age of the patient.Right Ventricle: The right ventricle is normal in size and | | function.Left Atrium: The left atrium is normal in size.Right Atrium: The right atrium | | is normal in size. Aortic Valve: The aortic valve appears to be trileaflet. Aortic | | Valve: The aortic valve is mildly calcified. Aortic Valve: There is no evidence of | | aortic regurgitation. Aortic Valve: There is no evidence of aortic stenosis.Mitral | | Valve: Normal appearing mitral valve. Tricuspid Valve: The tricuspid valve appears | | structurally normal. Tricuspid Valve: Pulmonary artery systolic pressure could not be | | assessed due to the absence of adequate TR jet.Pulmonic Valve: The pulmonic valve was | | not well visualized.Pericardium: There is no pericardial effusion. Pericardium: No | | pleural effusion seen.IVC/Hepatic Veins: The IVC is normal size (1.5-2.5cm) and | | collapses >50% with sniff, consistent with central venous pressures of 5-10mmHg.Aorta: | | Ascending aorta not well seen.MEASUREMENTS Ao Diam: 3.21 cmAo sinus: | | 3.[address] junct: 3.05 cmIVC: 1.54 cmLA Major: 3.90 cmEDV(Teich): 102.71 | | mlIVSd: 0.92 cmLVIDd: 4.70 cmLVPWd: 0.79 cmLVOT Area: 3.58 [id number] Diam: 2.13 | | cm%FS: 39.25 %EF(Teich): 69.70 %ESV(Teich): 31.11 mlLVIDs: 2.85 cmSV(Teich): | | 71.60 mlRA Major: 4.15 cmRV Major: 6.85 cmRV Minor: 2.73 cmRVIDd: 2.75 cmLVEF | | MOD A2C: 64.28 %SV MOD A2C: 67.83 mlLVEF MOD A4C: 64.07 %SV MOD A4C: 70.91 mlEF | | Biplane: 65.73 %LVEDV MOD BP: 116.32 mlLVESV MOD BP: 39.85 mlLVEDV MOD A2C: | | 105.51 mlLVLd A2C: 9.58 cmLVEDV MOD A4C: 110.66 mlLVLd A4C: 8.22 cmLVESV MOD A2C: | | 37.68 mlLVLs A2C: 7.26 cmLVESV MOD A4C: 39.75 mlLVLs A4C: 6.79 cmLAESV(A-L): | | 30.33 mlLAESV Index (A-L): 14.72 ml/m2LAAs A2C: 10.03 [id number] A-L A2C: 22.69 | | mlLALs A2C: 3.76 cmLAAs A4C: 13.41 [id number] A-L A4C: 36.80 mlLALs A4C: 4.14 | | cmRAAs: 11.18 [id number] A-L: 22.84 mlRAESV MOD: 22.10 mlRALs: 4.64 cmTAPSE: | | 2.04 cmAV maxP.55 mmHgAV meanP.52 mmHgAV Vmax: 1.27 m/Genesis Vmean: 0.88 | | m/Genesis VTI: 26.50 cmAVA Vmax: 2.49 cm2AVA (VTI): 2.39 [id number] Vmax: 0.00 | | cm2/m2AVAI (VTI): 0.00 cm2/m2LVOT maxP.17 mmHgLVOT meanP.82 mmHgLVSI Dopp: | | 30.83 ml/m2LVSV Dopp: 63.52 mlLVOT Vmax: 0.89 m/sLVOT Vmean: 0.65 m/sLVOT VTI: | | 17.71 cmMV A Jeffrey: 0.61 m/sMV Dec Woodward: 2.43 m/s2MV DecT: 247.51 msMV E Jeffrey: | | 0.60 m/sMV E/A Ratio: 0.98 MV PHT: 71.78 msMVA By PHT: 3.06 qv6Oyfuts e': 0.06 | | m/sSeptal E/e': 9.54 Lateral e': 0.10 m/sLateral E/e': 5.84 RAP: 5 mmHgRV s': | | 0.11 m/sSonographer: DHAuthenticated by: Darryl Patelort Date/Time: 02-22-2019 | | 20:8:36IMPRESSION:1. Overall left ventricular systolic function is normal with, an EF | | between 65 - 70 %.2. The right ventricle is normal in size and function.3. Pulmonary | | artery systolic pressure could not be assessed due to the absence of adequate TR jet.4. | | There is no pericardial effusion. | |Ao sinus: 3.46 cm | |Ao st junct: 3.05 cm | |IVC: 1.54 cm | |LA Major: 3.90 cm | |EDV(Teich): 102.71 ml | |IVSd: 0.92 cm | |LVIDd: 4.70 cm | |LVPWd: 0.79 cm | |LVOT Area: 3.58 cm2 | |LVOT Diam: 2.13 cm | |%FS: 39.25 % | |EF(Teich): 69.70 % | |ESV(Teich): 31.11 ml | |LVIDs: 2.85 cm | |SV(Teich): 71.60 ml | |RA Major: 4.15 cm | |RV Major: 6.85 cm | |RV Minor: 2.73 cm | |RVIDd: 2.75 cm | |LVEF MOD A2C: 64.28 % | |SV MOD A2C: 67.83 ml | |LVEF MOD A4C: 64.07 % | |SV MOD A4C: 70.91 ml | |EF Biplane: 65.73 % | |LVEDV MOD BP: 116.32 ml | |LVESV MOD BP: 39.85 ml | |LVEDV MOD A2C: 105.51 ml | |LVLd A2C: 9.58 cm | |LVEDV MOD A4C: 110.66 ml | |LVLd A4C: 8.22 cm | |LVESV MOD A2C: 37.68 ml | |LVLs A2C: 7.26 cm | |LVESV MOD A4C: 39.75 ml | |LVLs A4C: 6.79 cm | |LAESV(A-L): 30.33 ml | |LAESV Index (A-L): 14.72 ml/m2 | |LAAs A2C: 10.03 cm2 | |LAESV A-L A2C: 22.69 ml | |LALs A2C: 3.76 cm | |LAAs A4C: 13.41 cm2 | |LAESV A-L A4C: 36.80 ml | |LALs A4C: 4.14 cm | |RAAs: 11.18 cm2 | |RAESV A-L: 22.84 ml | |RAESV MOD: 22.10 ml | |RALs: 4.64 cm | |TAPSE: 2.04 cm | |AV maxP.55 mmHg | |AV meanP.52 mmHg | |AV Vmax: 1.27 m/s | |AV Vmean: 0.88 m/s | |AV VTI: 26.50 cm | |ADALID Vmax: 2.49 cm2 | |ADALID (VTI): 2.39 cm2 | |AVAI Vmax: 0.00 cm2/m2 | |AVAI (VTI): 0.00 cm2/m2 | |LVOT maxP.17 mmHg | |LVOT meanP.82 mmHg | |LVSI Dopp: 30.83 ml/m2 | |LVSV Dopp: 63.52 ml | |LVOT Vmax: 0.89 m/s | |LVOT Vmean: 0.65 m/s | |LVOT VTI: 17.71 cm | |MV A Jeffrey: 0.61 m/s | |MV Dec Woodward: 2.43 m/s2 | |MV DecT: 247.51 ms | |MV E Jeffrey: 0.60 m/s | |MV E/A Ratio: 0.98 | |MV PHT: 71.78 ms | |MVA By PHT: 3.06 cm2 | |Septal e': 0.06 m/s | |Septal E/e': 9.54 | |Lateral e': 0.10 m/s | |Lateral E/e': 5.84 | |RAP: 5 mmHg | |RV s': 0.11 m/s | | | |Dental Chair Assembler: JESSICA | |Authenticated by: Darryl [place] | |Report Date/Time: 02-22-2019 20:8:36 | | | |IMPRESSION: | |1. Overall left ventricular systolic function is normal with, an EF between 65 - 70 %. | |2. The right ventricle is normal in size and function. | |3. Pulmonary artery systolic pressure could not be assessed due to the absence of adequate TR jet. | |4. There is no pericardial effusion. | + --------+ + + + + + | Performing | Address | City/State/Zipcode | Phone Number | | Organization | | | | + + + + + | [facility] | [address] | [place] [address] | | + + + + + in this encounter Visit Diagnoses + + | Diagnosis | + + | History of sinus tachycardia | + + | Personal history of other diseases of circulatory system | + + | HTN, goal below 130/80 | + + | Unspecified essential hypertension | + + | Chronic diastolic heart failure (HCC) | + + | Chronic diastolic heart failure | + + | History of bariatric surgery | + + | Bariatric surgery status | + +"
--- OUTSIDE RECORDS SUMMARY | ~2019-05-20 | XMS | Encounter Summary ---
Demographics + + + | Address | [address] | | | [place] [address] | + + + | Home Phone [...] Author + + + | Author | [facility] | + + + | Organization | [facility] | + + + | Address | Unknown | + + + | Phone | Unavailable | + + + Support + + + + + | Name | Relationship | Address | Phone | + + + + + | Katalina Padilla | ECON | [address] | | | | | [place], [place] | | | | | [address] | | + + + + + | Ellie Vang | ECON | Unknown | | + + + + + Care Team Providers + +------+ + | Care Biofuels Engineering Manager Name | Role | Phone | [...] | | | | | | [place] [address] | | | +--------+ + + + [...] | | 2019 | Visit | | [address] | | | | | | [place] [facility] [place] | | | | | | [address] | | | | | | [phone] | | | | | | | | +--------+ + + + + | 07/08/ | Procedure | Surgery | | | | 2019 | Pass | | | | +--------+ + + + + documented as of this encounter Visit Diagnoses Not on filedocumented in this encounter"
--- OUTSIDE RECORDS SUMMARY | ~2019-05-20 | XMS | Encounter Summary ---
Demographics + + + | Address | [address] | | | [place] [address] | + + + | Home Phone [...] + | Katalina Padilla | ECON | [address] | | | | | [place], [place] | | | | | [address] | | + + + + + | Ellie Vang | ECON | Unknown | | + + + + + Care Team Providers + +------+ + | Care Deckhand Crab Boat Name | Role | Phone | + +------+ + | Fadi Goodrich DO | PCP | | + +------+ + Encounter Details +--------+------+ + + + | Date | Type | Department | Care Team | Description | +--------+------+ + + + | 11/28/ | Lab | Laboratory at [facility] | | Essential | | 2017 | | [address] | | hypertension; Right | | | | [place], [place] | | heart failure (HCC); | | | | [address] | | Type 2 diabetes | | | | [phone] | | mellitus without | | | [...] | | 2019 | Visit | | [address] | | | | | | [place], [place] | | | | | | [address] | | | | | | [phone] | | | | | | | [...] LDL | | PDT | heart failure (HCC) | results section. | | | | [...] | | | | use of insulin ([facility]) | | + +--------+ + + + | TSH | Routin | 11/28/2016 | Essential | Results for this | | | e | 10:53 AM | hypertension Right | procedure are in the | | | | PDT | heart failure ([facility]) | results section. | | | | [...] | | | PDT | heart failure ([facility]) | results section. | | | | [...] [facility] | [address] | [place] [address] | | | SERVICES, CORE | CLARENCE [...] methodology and reference ranges effective May | [place] | | 2015. | LABORATORY | | | SERVICES, LIPID | + + + + + + + + | Performing | Address | City/State/Zipcode | Phone Number | | Organization | | | | + + + + + | [facility] | [address] | [place], [place] | | | SERVICES, LIPID | [facility] | [address] | | + + + + + HEMOGLOBIN A1C, BLOOD (11/28/2016 10:53 AM PDT) + + + + + + | Component | Value | Ref Range | Performed | Pathologist | | | | | At | Signature | + + + + + + | HEMOGLOBIN | 6.8 (H)Comment: Hgb A1C | <5.7 % | [facility] | | | A1C | Interpretive | [...] glycated albumin should be considered for monitoring exterminator helper termite | LABORATORY | | glycemic control in [...] | + + + + + | [facility] | [address] | [place] [address] | | | SERVICES, SPECIAL | PARK [...] | | | LABORATORY | | | HONDURAN | | | SERVICES, | | | [...] [facility] | [address] | [place] [address] | | | SERVICES, CORE | CLARENCE [...]
--- OUTSIDE RECORDS SUMMARY | ~2019-05-20 | XMS | Encounter Summary ---
Demographics + + + | Address | [address] | | | [place] [address] | + + + | Home Phone | | + + + | Preferred Language | Unknown | + + + | Marital Status | Single | + + + | Samaritan Affiliation | NON | + + + [...] + | Katalina Padilla | ECON | [address] | | | | | [place], [place] | | | | | [address] | | + + + + + | Ellie Vang | ECON | Unknown | | + + + + + Care Team Providers + +------+ + | Care Air Support Control Officer Name | Role | Phone | + +------+ + | Fadi Goodrich DO | PCP | | + +------+ + Encounter Details +--------+ + + + + | Date | Type | Department | Care Team | Description | +--------+ + + + + | 12/05/ | Abstract | Cardiology | Randell Franks, | | | 2016 | | Preventive at [facility] | MD [address] | | | | | [address] | Ave [place], [place] | | | | | Mailcode: CH9A | [address] | | | | | [facility] | [phone] | | | | | and Healing, | | | | | | [address] | | | | | | [place], [place] | | | | | | [address] | | | | | | [phone] | | | +--------+ + + + [...] | 2019 | Visit | | [address] | | | | | | [place], [place] | | | | | | [address] | | | | | | [phone] | | | | | | | | +--------+ + + + + | 07/08/ | Procedure | Surgery | | | | 2019 | Pass | | | | +--------+ + + + + documented as of this encounter Visit Diagnoses Not on filedocumented in this encounter"
--- OUTSIDE RECORDS SUMMARY | ~2019-05-20 | XMS | Encounter Summary ---
Demographics + + + | Address | [address] | | | [place] [address] | + + + | Home Phone | | + + + | Preferred Language | Unknown | + + + | Marital Status | Single | + + + | Jew Affiliation | NON | + + + | Race | White | + + + | Ethnic Group | Not or | + + + Author + + + | Author | [facility] | + + + | Organization | [facility] | + + + | Address | Unknown | + + + | Phone | Unavailable | + + + Support + + + + + | Name | Relationship | Address | Phone | + + + + + | Katalina Padilla | ECON | [address] | | | | | [place], [place] | | | | | [address] | | + + + + + | Ellie Vang | ECON | Unknown | | + + + + + Care Team Providers + +------+ + | Care Salad Bar Clerk Name | Role | Phone | + +------+ + | Fadi Goodrich DO | PCP | | + +------+ + Reason for Visit + + + | Reason | Comments | + + + | Care Coordination | | + + + Encounter Details +--------+ + + + + | Date | Type | Department | Care Team | Description | +--------+ + + + + | 11/08/ | Telephone | Cardiology | Randell Franks, | Care Coordination | | 2015 | | Preventive at [facility] | MD [address] | | | | | [address] | [place], [place] | | | | | Mailcode: [facility] | [address] | | | | | [facility] | [phone] | | | | | and [place], | | | | | | [address] | | | | | | [place], [place] | | | | | | [address] | | | | | | [phone] | | | +--------+ + + + [...] | | | | | [place], [place] | | | | | | [address] | | | | | | [phone] | | | | | | | | +--------+ + + + + | 07/08/ | Procedure | Surgery | | | | 2018 | Pass | | | | +--------+ + + + + documented as of this encounter Visit Diagnoses Not on filedocumented in this encounter"
--- OUTSIDE RECORDS SUMMARY | ~2019-05-20 | XMS | Encounter Summary ---
Demographics + + + | Address | [address] | | | [place] [address] | + + + | Home Phone [...] + | Katalina Padilla | ECON | [address] | | | | | [place], [place] | | | | | [address] | | + + + + + | Ellie Vang | ECON | Unknown | | + + + + + Care Team Providers + +------+ + | Care Ct Tech Name | Role | Phone | + +------+ + | Kenyatta Cardenas MD | PCP | | + +------+ + Encounter Details +--------+ + + + + | Date | Type | Department | Care Team | Description | +--------+ + + + + | 03/22/ | Hospital | Radiology/Imaging | Keren Allen, | | | 2019 | Encounter | Lab at [facility] [address] | [facility] [address] | | | | | [address] [place] Mailcode: | [place], [place] | | | | | [facility] | [address] | | | | | Health and Healing, | [phone] | | | | | [address] | | | | | | Floor [facility] [place] | | | | | | [address] | | | | | | [phone] | | | +--------+ + + + [...] | | 0 | | | | [id number] | mouth two times | | | [...] | | 2019 | Visit | | [address] | | | | | | [place], [place] | | | | | | [address] | | | | | | [phone] | | | | | | | [...] + +--------+ + + + | X-RAY MIRIAM CASTELLON | Routin | 03/22/2019 | History [...] documented in this encounter Results X-RAY UGI WO KUB (03/22/2019 11:04 AM PDT) + + | [...] Note | + + | Service Account, [employer] Res In Interface - 03/22/2019 1:04 PM [...]
--- OUTSIDE RECORDS SUMMARY | ~2019-05-20 | XMS | Encounter Summary ---
Demographics + + + | Address | [address] | | | [place] [address] | + + + | Home Phone [...] Author + + + | Author | [facility] | + + + | Organization | [facility] | + + + | Address | Unknown | + + + | Phone | Unavailable | + + + Support + + + + + | Name | Relationship | Address | Phone | + + + + + | Katalina Padilla | ECON | [address] | | | | | [place], [place] | | | | | [address] | | + + + + + | Ellie Vang | ECON | Unknown | | + + + + + Care Team Providers + +------+ + | Care Maintenance Scheduler Name | Role | Phone | + +------+ + | Fadi Goodrich DO | PCP | | + +------+ + Encounter Details +--------+ + + + + | Date | Type | Department | Care Team | Description | +--------+ + + + + | 07/19/ | Abstract | Digestive Health | Kathy Feldman, | | | 2012 | | Center at [facility] [address] [facility] [address] | | | | | [address] | [facility] [address] | | | | | Mailcode: Center | [place], [place] | | | | | [facility] | [address] | | | | | [facility] [address] | [phone] | | | | | [place], [place] | | | | | | [address] | | | | | | [phone] | | | +--------+ + + + [...] | | 2018 | Visit | | [address] | | | | | | [place], [place] | | | | | | [address] | | | | | | [phone] | | | | | | | | +--------+ + + + + | 07/08/ | Procedure | Surgery | | | | 2018 | Pass | | | | +--------+ + + + + documented as of this encounter Visit Diagnoses Not on filedocumented in this encounter"
--- OUTSIDE RECORDS SUMMARY | ~2019-05-20 | XMS | Encounter Summary ---
Demographics + + + | Address | [address] | | | [place] [address] | + + + | Home Phone [...] + | Katalina Padilla | ECON | [address] | | | | | [place], [place] | | | | | [address] | | + + + + + | Ellie Vang | ECON | Unknown | | + + + + + Care Team Providers + +------+ + | Care Panelbeater Name | Role | Phone | + +------+ + | Fadi Goodrich DO | PCP | | + +------+ + Reason for Visit + + + | Reason | Comments | + + + | Telephone follow-up | 06/23/18 | + + + Encounter Details +--------+ + + + + | Date | Type | Department | Care Team | Description | +--------+ + + + + | 06/24/ | Telephone | Endoscopic | Marcella Wilcox MD | Telephone follow-up | | 2018 | | Procedural Unit at | [address] | (06/23/18) | | | | [address] | [place], [place] | | | | | [address] [facility] | [address] | | | | | Rd Mailcode: UHN83 | [phone] | | | | | Francesco Peres | | | | | | [address] [place], [place] | | | | | | [address] | | | | | | [phone] | | | +--------+ + + + [...] | | 2018 | Visit | | [address] | | | | | | [place], [place] | | | | | | [address] | | | | | | [phone] | | | | | | | | +--------+ + + + + | 07/08/ | Procedure | Surgery | | | | 2018 | Pass | | | | +--------+ + + + + documented as of this encounter Visit Diagnoses Not on filedocumented in this encounter"
--- OUTSIDE RECORDS SUMMARY | ~2019-05-20 | XMS | Encounter Summary ---
Demographics + + + | Address | [address] | | | [place] [address] | + + + | Home Phone [...] Author + + + | Author | [facility] | + + + | Organization | [facility] | + + + | Address | Unknown | + + + | Phone | Unavailable | + + + Support + + + + + | Name | Relationship | Address | Phone | + + + + + | Katalina Padilla | ECON | [address] | | | | | [place], [place] | | | | | [address] | | + + + + + | Ellie Vang | ECON | Unknown | | + + + + + Care Team Providers + +------+ + | Care Pole Sander Operator Name | Role | Phone | + +------+ + | Fadi Goodrich DO | PCP | | + +------+ + Encounter Details +--------+ + + + + | Date | Type | Department | Care Team | Description | +--------+ + + + + | 10/27/ | Abstract | Digestive Health | Clinic, Surgery | | | 2018 | | [place] [facility] [address] | | | | | | [address] | | | | | | Mailcode: [place] | | | | | | [facility] | | | | | | [facility] | | | | | | [place], [place] | | | | | | [address] | | | | | | [phone] | | | +--------+ + + + [...] | | 2019 | Visit | | [address] | | | | | | [place], [place] | | | | | | [address] | | | | | | [phone] | | | | | | | | +--------+ + + + + | 07/08/ | Procedure | Surgery | | | | 2019 | Pass | | | | +--------+ + + + + documented as of this encounter Visit Diagnoses Not on filedocumented in this encounter"
--- OUTSIDE RECORDS SUMMARY | ~2019-05-20 | XMS | Encounter Summary ---
Demographics + + + | Address | [address] | | | [place] [address] | + + + | Home Phone [...] [place], [place] | | | | | [address] | | + + + + + | Ellie Vang | ECON | Unknown | | + + + + + Care Team Providers + +------+ + | Care Informaticist Name | Role | Phone | + [...] Closed | | Trauma Center | | [facility] | Tra Emerg | | | | | | Epic Dept | Gen Surg [facility] | | | | | | | [address] | | | | | | | [address] | | | | | | | [place] Mailcode: | | | | | | | L[address]A | | | | | | | [facility] | | | | | | | [address] | | | | | | | [place], [place] | | | | | | | [address] | | | | | | | Phone: | | | | | | | [phone] | | | | | | | Fax: | | | | | | | [phone] | +--------+--------+ + + + + Encounter Details +--------+---------+ + + + | Date | Type | Department | Care Team | Description | +--------+---------+ + + + | 11/04/ | Office | Trauma Emergency | Christian Rocha, | Ventral hernia | | 2016 | Visit | General Surgery at | ,[facility] [address] | without obstruction | | | | [facility] [address] | [address] | or gangrene (Primary | | | | [address] | [facility] [place] | Dx) | | | | Mailcode: L[address]A | [address] | | | | | [facility] | [phone] | | | | | [address] [facility] [place] | | | | | | [address] | | | | | | [phone] | | | +--------+---------+ + + + [...] + + + | Blood Pressure | 156/1 | 11/05/2015 1:59 PM | | | | | PDT | | + + + + + | Pulse | 56 | 11/05/2015 1:59 PM | | | | | PDT | | + + + + + | Temperature | - | - | | + + + + + | Respiratory Rate | - | - | | + + + + + | Oxygen Saturation | 96% | 11/05/2015 1:59 PM | | | | | PDT | | + + + + + | Inhaled Oxygen | - | - | | | Concentration | | | | + + + + + | Weight | 213.9 kg (471 lb 8 | 11/05/2015 1:59 PM | | | | oz) | PDT | | + + + + + | Height | - | - | | + + + + + | Body Mass Index | 89.09 | 04/03/2015 10:36 AM | | | | | PDT | | + + + + + documented in this encounter Progress Notes Christian Rocha MD,[facility] - 11/05/2015 2:09 PM PDT [facility] Department of Surgery EGS/TRAUMA Surgery Clinic Note 11/05/2015 SUBJECTIVE: Elzbieta Cristina is a 40 y.o. female who presents today for referral of a VIHR (recurrence). She was last repaired in February of 2015. She reports pain at the same locati on. She reports occasional nausea but does not report any obstructive symptoms. She desire s repair. HOME MEDICATIONS: Current Outpatient Prescriptions on File Prior to Visit Medication Sig Dispense Refill ALPRAZolam 1 mg oral tablet Take 1 mg by mouth three times daily as needed for anxiety. ascorbic acid (VITAMIN C) 500 mg Oral tablet Take 500 mg by mouth once daily. CALCIUM CRB&PBG-E2-HXA47-GENIS ORAL Take 1 tablet by mouth two times daily. ergocalciferol (VITAMIN D2) 50,000 unit oral capsule Take 50,000 Units by mouth twice w toribio (on Thursday and ). FLUoxetine 40 mg Oral capsule Take 40 mg by mouth once daily. HUM INSULIN NPH/REG INSULIN HM (HUMULIN 70/30 SUBQ) Inject 50 cc under the skin (SUBC) once daily. lorcaserin 10 mg oral tablet Take 10 mg by mouth two times daily. 180 tablet 3 magnesium oxide 400 mg oral tablet Take 400 mg by mouth once daily. metFORMIN 1,000 mg Oral tablet Take 1,000 mg by mouth once daily. OLANZAPINE (ZYPREXA ORAL) Take 30 mg by mouth once daily. phentermine 37.5 mg oral tablet Take 1 tablet by mouth once daily in the morning. Admin ister before breakfast. 90 tablet 1 piroxicam 20 mg Oral capsule Take 20 mg by mouth once daily. polyethylene glycol 17 gram/dose oral powder Take 17 g by mouth once daily as needed (f or no BM for 2 days). 255 g 1 potassium chloride SR 10 mEq oral tablet,ER particles/crystals Take 10 mEq by mouth onc e daily. pseudoephedrine 60 mg oral tablet Take 120 mg by mouth two times daily. ranitidine 300 mg Oral tablet Take 300 mg by mouth once daily at bedtime. thyroid (ARMOUR THYROID) 30 mg oral tablet tab Take 30 mg by mouth once daily. topiramate (TOPAMAX) 100 mg oral tablet Take 1 tablet by mouth two times daily. (Patien t taking differently: Take 200 mg by mouth once daily.) 180 tablet 3 TORSEMIDE ORAL Take 40 mg by mouth two times daily. traZODone 150 mg Oral tablet Take 150 mg by mouth once daily at bedtime. No current facility-administered medications on file prior to visit. PHYSICAL EXAM: VITALS: BP 156/1 | Pulse 56 | Wt 213.871 kg (471 lb 8 oz) | SpO2 96% | BMI 89.14 kg/(m^2) General appearance: alert and cooperative Lungs: CTA bilateral Cardiac: regular rate, rhythm Abdomen: obese, possible underlying the previous incisional hernia but very difficult to as sess secondary to overall abdominal area/obesity. CEDAR Calculation based on PMH, previous repairs, and BMI: >95% risk of complication. ASSESSMENT AND PLAN: Elzbieta Cristina is a 40 y.o. female s/p previous VIHR (primary) for i ncarceration in 2014, desiring repair for possible recurrence. I shared the risk calculation and that given her morbid obesity, I would not offer an elect scarlett operation. I discussed that if she presented in an emergent situation (acute incarcerat ion with obstruction for example), that would mandate an operation. However, she would need to lose significant weight for an elective repair. All patient questions were answered. Christian Rocha MD MPH FACS [facility] mechanical operator Trauma, Critical Care & Acute Care Surgery [facility] [place] [phone] documented in thi s encounter Plan of Treatment +--------+ + + [...] | | 2018 | Visit | | [address] | | | | | | [place], [place] | | | | | | [address] | | | | | | [phone] | | | | | | | [...]
--- OUTSIDE RECORDS SUMMARY | ~2019-05-20 | XMS | Encounter Summary ---
Demographics + + + | Address | [address] | | | [place] [address] | + + + | Home Phone | | + + + | Preferred Language | Unknown | + + + | Marital Status | Single | + + + | Mormon Affiliation | NON | + + + [...] + | Katalina Padilla | ECON | [address] | | | | | [place], [place] | | | | | [address] | | + + + + + | Ellie Vang | ECON | Unknown | | + + + + + Care Team Providers + +------+ + | Care Scallop Shucker Name | Role | Phone | + +------+ + | Fadi Goodrich DO | PCP | | + +------+ + Encounter Details +--------+------+ + + + | Date | Type | Department | Care Team | Description | +--------+------+ + + + | 08/28/ | Lab | Laboratory at [facility] | | Type 2 diabetes | | 2015 | | [address] | | mellitus (HCC) | | | | [place], [place] | | | | | | [address] | | | | | | [phone] | | | +--------+------+ + + + [...] | | 2018 | Visit | | [address] | | | | | | [place] [facility] [place] | | | | | | [address] | | | | | | [phone] | | | | | | | [...] + + | TSH | Routin | 08/28/2014 | Type 2 diabetes | Results for this | | | e | 11:11 AM | mellitus (HCC) | procedure are in the | | | | PST | | results section. | + +--------+ + + + | HEMOGLOBIN A1C, | Routin | 08/28/2014 | Type 2 diabetes | Results for this | | BLOOD | e | 11:11 AM | mellitus (HCC) | procedure are in the | | | | PST | | results section. | + +--------+ + + + documented in this encounter Results TSH (08/28/2014 11:11 AM [...] | + + + + + | [facility] | [address] | [place] [address] | | | LYDIA RANGEL | CLARENCE [...] | + + + + + | [facility] [employer] | [address] | [place] [address] | | | SERVICES, SPECIAL | PARK [...]
--- OUTSIDE RECORDS SUMMARY | ~2019-05-20 | XMS | Encounter Summary ---
Demographics + + + | Address | [address] | | | [place] [address] | + + + | Home Phone [...] + | Katalina Padilla | ECON | [address] | | | | | [place], [place] | | | | | [address] | | + + + + + | Ellie Vang | ECON | Unknown | | + + + + + Care Team Providers + +------+ + | Care Senior Information Developer Name | Role | Phone | + [...] | | | | | | [place] [address] | | | +--------+ + + + [...] | | | | | [place], [place] | | | | | | [address] | | | | | | [phone] | | | | | | | | +--------+ + + + + | 07/08/ | Procedure | Surgery | | | | 2018 | Pass | | | | +--------+ + + + + documented as of this encounter Visit Diagnoses Not on filedocumented in this encounter"
--- OUTSIDE RECORDS SUMMARY | ~2019-05-20 | XMS | Encounter Summary ---
Demographics + + + | Address | [address] | | | [place] [address] | + + + | Home Phone [...] + | Katalina Padilla | ECON | [address] | | | | | [place], [place] | | | | | [address] | | + + + + + | Ellie Vang | ECON | Unknown | | + + + + + Care Team Providers + +------+ + | Care Belt Cleaner Name | Role | Phone | [...] [address] | | | | | [facility] | [facility] | | | | | [address] | [place], [place] | | | | | Mail Code: OC8PM | [address] | | | | | [facility] | [phone] | | | | | and Healing, | | | | | | [address] | | | | | | [place], [place] | | | | | | [address] | | | | | | [phone] | | | +--------+ + + + [...] | | | | | [place], [place] | | | | | | [address] | | | | | | [phone] | | | | | | | | +--------+ + + + + | 07/08/ | Procedure | Surgery | | | | 2019 | Pass | | | | +--------+ + + + + documented as of this encounter Visit Diagnoses Not on filedocumented in this encounter"
--- OUTSIDE RECORDS SUMMARY | ~2019-05-20 | XMS | Encounter Summary ---
Demographics + + + | Address | [address] | | | [place] [address] | + + + | Home Phone [...] + | Katalina Padilla | ECON | [address] | | | | | [place], [place] | | | | | [address] | | + + + + + | Ellie Vang | ECON | Unknown | | + + + + + Care Team Providers + +------+ + | Care Hardware Developer Name | Role | Phone | [...] | +--------+ + + + + | 02/07/ | Anesthesia | 6A Intra Op [facility] | Andie Hope MD | | | 2013 | Event | [facility] | [address] | | | | | Admitting Desk | Lesly Gutiérrez [facility] | | | | | [facility] on the | [place] [address] | | | | | floor [address] | [phone] | | | | | [address] | | | | | | [place], [place] | | | | | | [address] | | | +--------+ + + + + Anesthesia Record + + + + + | Procedure Name | Responsible | Anesthesia Start | Anesthesia Stop Time | | | Anesthesiologist | Time | | + + + + + | LAPAROSCOPIC | Andie Hope MD | 02/07/14 1528 | 02/07/14 1909 | | CHOLECYSTECOMY WITH | | | | | INTRA-OP | | | | | CHOLANGIOGRAM (N/A | | | | | Abdomen) | | | | + + + + + +----+---+ + + | Da | T | Event | Comment | | te | i | | | | | m | | | | | e | | | +----+---+ + + | 07 | 1 | | | | /1 | 5 | | | | 5/ | 1 | | | | 20 | 5 | | | | 14 | | | | +----+---+ + + | | 1 | Pt. Check | Prior to anesthesia start, pt. Identified, examined, chart | | | 5 | | reviewed, PARQ held, anesthetic plan made or approved by | | | 1 | | attending anesthesiologist. NPO status confirmed as appropriate | | | 5 | | for procedure Preoperative evaluation: unchanged | +----+---+ + + | | 1 | An Start | | | | 5 | | | | | 2 | | | | | 8 | | | +----+---+ + + | | 1 | An Start | | | | 5 | Data | | | | 3 | | | | | 7 | | | +----+---+ + + | | 1 | Vitals | Monitors applied Vital signs checked Patient ready for anesthesia | | | 5 | Checked | | | | 4 | | | | | 2 | | | +----+---+ + + | | 1 | Std. Airway | | | | 5 | Mgt. | | | | 4 | | | | | 6 | | | +----+---+ + + | | 1 | Art Line | | | | 6 | | | | | 0 | | | | | 0 | | | +----+---+ + + | | 1 | Ready | | | | 6 | | | | | 0 | | | | | 5 | | | +----+---+ + + | | 1 | Abx | | | | 6 | Administere | | | | 1 | d | | | | 6 | | | +----+---+ + + | | 1 | Incision | | | | 6 | | | | | 3 | | | | | 0 | | | +----+---+ + + | | 1 | Medication | Fentanyl 300mcg Hydromorphone 2mg | | | 6 | Handoff | | | | 3 | | | | | 8 | | | +----+---+ + + | | 1 | Quick Note | Insuflation & Reverse T | | | 6 | | | | | 4 | | | | | 0 | | | +----+---+ + + | | 1 | Surgery end | | | | 8 | | | | | 4 | | | | | 4 | | | +----+---+ + + | | 1 | an stop | | | | 8 | data | | | | 4 | | | | | 8 | | | +----+---+ + + | | 1 | An Extubate | Neuromuscular function Intact. Pharynx suctioned. Patient obeys | | | 8 | | commands. Adequate pulmonary mechanics. | | | 4 | | | | | 8 | | | +----+---+ + + | | 1 | Anesthesia | | | | 9 | End | | | | 0 | | | | | 9 | | | +----+---+ + + +------+ | Meds | +------+ + + + | Name | Total | + + + | midazolam | 2 mg | + + + | fentaNYL | 400 mcg | + + + | propofol | 200 mg | + + + | succinylcholine | 160 mg | + + + | lidocaine 2% | 100 mg | + + + | rocuronium | 50 mg | + + + | ceFAZolin | 2,000 mg | + + + | ePHEDrine | 25 mg | + + + | PHENYLephrine | 100 mcg | + + + | acetaminophen IV | 1,000 mg | + + + | glycopyrrolate | 0.4 mg | + + + | neostigmine | 3 mg | + + + | ondansetron | 4 mg | + + + | NS | 1,000 mL | + + + | LR | 1,000 mL | + + + | LR | 700 mL | + + + + + | Name | + + | O2 FR Avance (Total Liters) | + + | Air FR Avance (l/min) | + + | Insp Dwaine | + + | Et Dwaine | + + + + | No [...] + + + | RETIRE | 02/07/14; 02/08/14; 1130; Magui; | 02/07/14 0000 by | 02/08/14 1130 by | | D - | 16FR | Lizzeth Lyn RN | Bridger Green RN | | Bonilla | | | | | y Cath [...] + + + | RETIRE | 02/07/14; 02/07/14; 1946; No; Rt | 02/07/14 0000 by | 02/07/141946 by | | D - | ; radial, right | Lissette Mistry, | Lissette Mistry, | | Arteri | | RN | RN | | al | | | | [...] for | | | | | questions.); 162 (Automatic | | | | | cleanup per RA 3006--contact | | | | | admin for questions.) | | | +--------+ + + + | RETIRE | 02/07/14; 08; 02/08/14; 1615; | 02/07/14819 by | 02/08/141615 by | | D - | No; 20; Right; Wrist; None; | Bob Ott RN | Jorje Birmingham RN | | Periph | Positive; 2; Therapy completed | | | | eral | | | | | Line | | | | +--------+ + + + | RETIRE | 02/07/14; 0853; 02/08/14; 1616; | 02/07/14 0853 by | 02/08/14 161 by | | D - | No; 22; Left; Hand; Lidocaine; | Leslie Avendano RN | Jorje Birmingham RN | | Periph | No; Positive; Therapy completed | | | | eral | | | | | Line | | | | +--------+ + + + | RETIRE | 02/07/14; 1605; 02/08/14; 1616; | 02/07/14 1605 by | 02/08/14 1616 by | | D - | No; 18; Left; Hand; Positive; 1; | Mikaela Feliciano | Jorje Birmingham RN | | Periph | Therapy completed | MD Opal | | | eral | | | [...] | 06/30/ | Office | Cardiology | [place], | | | 2018 | Visit | | [address] | | | | | | [place], [place] | | | | | | [address] | | | | | | [phone] | | | | | | | [...] | + +--------+ + +------+------+ | acetaminophen (OFIRMEV) IV | Given | 02/08/20 | 1,000 mg | | | | INTRAPROCEDURE PRN, Starting Tue | | 14 6:01 | | | | | 02/07/14 at 1801, Until Tue | | PM PDT | | | | | 02/07/14 at 1848 | | | | | | + +--------+ + +------+------+ +---+---+ | | | +---+---+ + +-------+ + +---+---+ | ceFAZolin (ANCEF) injection | Given | 02/08/20 | 2,000 mg | | | | intravenous, INTRAPROCEDURE PRN, | | 14 4:16 | | | | | Starting 02/07/14 at 1616, | | PM PDT | | | | | Until e 02/07/14 at 1848 | | | | | | + +-------+ + +---+---+ +---+---+ | | | +---+---+ + +-------+ +-------+---+---+ | ePHEDrine injection | Given | 02/08/20 | 10 mg | | | | intravenous, INTRAPROCEDURE PRN, | | 14 4:46 | | | | | Starting 02/07/14 at 1640, | | PM PDT | | | | | Until 02/07/14 at 1848 | | | | | | + +-------+ +-------+---+---+ +-------+ +-------+---+---+ | Given | 02/08/20 | 10 mg | | | | | 14 4:42 | | | | | | PM PDT | | | | +-------+ +-------+---+---+ | Given | 02/08/20 | 5 mg | | | | | 14 4:40 | | | | | | PM PDT | | | | +-------+ +-------+---+---+ +---+---+ | | | +---+---+ + +-------+ +---------+---+---+ | fentaNYL citrate (PF) | Given | 02/08/20 | 100 mcg | | | | (SUBLIMAZE) injection | | 14 6:45 | | | | | INTRAPROCEDURE PRN, Starting Tue | | PM PDT | | | | | 02/07/14 at 1545, Until Tue | | | | | | | 02/07/14 at 1848, sedation | | | | | | + +-------+ +---------+---+---+ +-------+ +--------+---+---+ | Given | 02/08/20 | 50 mcg | | | | | 14 5:58 | | | | | | PM PDT | | | | +-------+ +--------+---+---+ | Given | 02/08/20 | 50 mcg | | | | | 14 5:48 | | | | | | PM PDT | | | | +-------+ +--------+---+---+ +---+---+ | | | +---+---+ + +-------+ +--------+---+---+ | glycopyrrolate (TREVER) | Given | 02/08/20 | 0.4 mg | | | | injection INTRAPROCEDURE PRN, | | 14 6:39 | | | | | Starting Thu02/07/14 at 1839, | | PM PDT | | | | | Until Thu02/07/14 at 1848 | | | | | | + +-------+ +--------+---+---+ +---+---+ | | | +---+---+ + + + +---+---+---+ | lactated ringers IV | given by | 02/08/20 | | | | | INTRAPROCEDURE CONTINUOUS PRN, | | 14 6:44 | | | | | Starting 02/07/14 at 1528, | anesthes | PM PDT | | | | | Until 02/07/14 at 1848 | iology | | | | | + + + +---+---+---+ + + +---+---+---+ | given by anesthesiology | 02/08/20 | | | | | | 14 4:30 | | | | | | PM PDT | | | | + + +---+---+---+ | New Bag | 02/08/20 | | | | | | 14 3:28 | | | | | | PM PDT | | | | + + +---+---+---+ +---+---+ | | | +---+---+ + + + +---+---+---+ | lactated ringers IV | given by | 02/08/20 | | | | | INTRAPROCEDURE CONTINUOUS PRN, | | 14 6:44 | | | | | Starting 02/07/14 at 1733, | anesthes | PM PDT | | | | | Until 02/07/14 at 1848 | iology | | | | | + + + +---+---+---+ +---------+ +---+---+---+ | New Bag | 02/08/20 | | | | | | 14 5:33 | | | | | | PM PDT | | | | +---------+ +---+---+---+ +---+---+ | | | +---+---+ + +-------+ +--------+---+---+ | lidocaine PF (XYLOCAINE MPF) 20 | Given | 02/08/20 | 100 mg | | | | mg/mL (2 %) injection | | 14 3:45 | | | | | INTRAPROCEDURE PRN, Starting Tue | | PM PDT | | | | | 02/07/14 at 1545, Until Tue | | | | | | | 02/07/14 at 1848 | | | | | | + +-------+ +--------+---+---+ +---+---+ | | | +---+---+ + +-------+ +------+---+---+ | midazolam (VERSED) injection | Given | 02/08/20 | 2 mg | | | | INTRAPROCEDURE PRN, Starting Tue | | 14 3:28 | | | | | 02/07/14 at 1528, Until Tue | | PM PDT | | | | | 02/07/14 at 1848, sedation | | | | | | + +-------+ +------+---+---+ +---+---+ | | | +---+---+ + + + +---+---+---+ | NaCl 0.9 % IV INTRAPROCEDURE | given by | 02/08/20 | | | | | CONTINUOUS PRN, Starting Tue | | 14 5:33 | | | | | 02/07/14 at 1605, Until Tue | anesthes | PM PDT | | | | | 02/07/14 at 1848 | iology | | | | | + + + +---+---+---+ + + +---+---+---+ | given by anesthesiology | 02/08/20 | | | | | | 14 4:46 | | | | | | PM PDT | | | | + + +---+---+---+ | given by anesthesiology | 02/08/20 | | | | | | 14 4:30 | | | | | | PM PDT | | | | + + +---+---+---+ +---+---+ | | | +---+---+ + +-------+ +------+---+---+ | neostigmine (PROSTIGMIN) | Given | 02/08/20 | 3 mg | | | | injection intravenous, | | 14 6:39 | | | | | INTRAPROCEDURE PRN, Starting Tue | | PM PDT | | | | | 02/07/14 at 1839, Until Tue | | | | | | | 02/07/14 at 1848 | | | | | | + +-------+ +------+---+---+ +---+---+ | | | +---+---+ + +-------+ +------+---+---+ | ondansetron (ZOFRAN) injection | Given | 02/08/20 | 4 mg | | | | INTRAPROCEDURE PRN, Starting Tue | | 14 6:40 | | | | | 02/07/14 at 1840, Until Tue | | PM PDT | | | | | 02/07/14 at 1848 | | | | | | + +-------+ +------+---+---+ +---+---+ | | | +---+---+ + +-------+ +---------+---+---+ | PHENYLEPHrine 100 mcg/mL | Given | 02/08/20 | 100 mcg | | | | injection (OR syringe) | | 14 4:44 | | | | | intravenous, INTRAPROCEDURE PRN, | | PM PDT | | | | | Starting 02/07/14 at 1644, | | | | | | | Until 02/07/14 at 1848 | | | | | | + +-------+ +---------+---+---+ +---+---+ | | | +---+---+ + +-------+ +--------+---+---+ | propofol INTRAPROCEDURE PRN, | Given | 02/08/20 | 200 mg | | | | Starting 02/07/14 at 1545, | | 14 3:45 | | | | | Until 02/07/14 at 1848 | | PM PDT | | | | + +-------+ +--------+---+---+ +---+---+ | | | +---+---+ + +-------+ +-------+---+---+ | rocuronium (ZEMURON) injection | Given | 02/08/20 | 20 mg | | | | INTRAPROCEDURE PRN, Starting Tue | | 14 4:25 | | | | | 02/07/14 at 1605, Until Tue | | PM PDT | | | | | 02/07/14 at 1848, Neuromuscular | | | | | | | block | | | | | | + +-------+ +-------+---+---+ +-------+ +-------+---+---+ | Given | 02/08/20 | 30 mg | | | | | 14 4:05 | | | | | | PM PDT | | | | +-------+ +-------+---+---+ +---+---+ | | | +---+---+ + +-------+ +--------+---+---+ | SUCCINYLCHOLINE CHLORIDE 20 | Given | 02/08/20 | 160 mg | | | | MG/ML INJ (PROSED/RSI) | | 14 3:45 | | | | | INTRAPROCEDURE PRN, Starting Tue | | PM PDT | | | | | 02/07/14 at 1545, Until Tue | | | | | | | 02/07/14 at 1848, Neuromuscular | | | | | | | block | | | | | | + +-------+ +--------+---+---+ +---+---+ | | | +---+---+ documented in this encounter"
--- OUTSIDE RECORDS SUMMARY | ~2019-05-20 | XMS | Encounter Summary ---
Demographics + + + | Address | [address] | | | [place] [address] | + + + | Home Phone [...] + | Katalina Padilla | ECON | [address] | | | | | [place], [place] | | | | | [address] | | + + + + + | Ellie Vang | ECON | Unknown | | + + + + + Care Team Providers + +------+ + | Care Veterinary Medical Officer Name | Role | Phone | [...] | | 2018 | | Center at [facility] [address] | ACNP [address] | | | | | [address] | [place], [place] | | | | | Mailcode: [place] | [address] | | | | | for Health and | [phone] | | | | | [place] [address] | | | | | | [place], [place] | | | | | | [address] | | | | | | [phone] | | | +--------+ + + + [...] | | | | | [place], [place] | | | | | | [address] | | | | | | [phone] | | | | | | | | +--------+ + + + + | 07/08/ | Procedure | Surgery | | | | 2019 | Pass | | | | +--------+ + + + + documented as of this encounter Visit Diagnoses Not on filedocumented in this encounter"
--- OUTSIDE RECORDS SUMMARY | ~2019-05-20 | XMS | Encounter Summary ---
Demographics + + + | Address | [address] | | | [place] [address] | + + + | Home Phone [...] + | Katalina Padilla | ECON | [address] | | | | | [place], [place] | | | | | [address] | | + + + + + | Ellie Vang | ECON | Unknown | | + + + + + Care Team Providers + +------+ + | Care Heel Builder Machine Name | Role | Phone | [...] | 2019 | Visit | Preventive at [facility] | MD Deion [address]arris | mellitus without | | | | [address] | Ave [place], [place] | complication, with | | | | Mailcode: CH9A | [address] | long-term current | | | | [facility] | [phone] | use of insulin ([facility]) | | | | and Healing, | | (Primary Dx); | | | | Building 1 | | Morbid obesity with | | | | [place], [place] | | BMI of 70 and over, | | | | [address] | | adult (HCC) | | | | [phone] | | | +--------+---------+ + + + [...] Note: Cannot tolerate CPAP Severe Morbid obesity (HCC), BMI 88 11/12/2012 Priority: 4 Overview Note: Lifetime max: 495 lbs Phentermine started Type 2 diabetes mellitus ([facility]) 04/14/2013 Priority: 5 Iron deficiency anemia due to chronic blood loss 11/11/2015 Priority: 6 Overview Note: Ferritin 18 on 10/2015 Hypoalbuminemia (no proteinuria, need to rule out synthetic, nutrition, loss) 6 Priority: 6 Hypothyroidism 08/28/2014 Priority: 8 Morbid obesity with BMI of 70 and over, adult ([facility]) 02/02/2017 Chronic diastolic heart failure [...] daily. BELBUCA 300 mcg buccal film CALCIUM CRB&DIX-R5-RQH15-GENIS ORAL Take 2 tablets by mouth two [...] of metformin, and she reports her last fqgky-xo-uajs A1 c was 5.5% on this dose. She was recently seen by the bariatric surgery team and because of her rapid weight loss gricelda patterson was advised to stop the topiramate. She [...] CREATININE PLASMA (LAB) 0.85 0.70 EGFR - [address] [facility] >60 >60 EGFR NON -[facility] >60 >60 GLUCOSE, PLASMA (LAB) 123 (H) [...] is currently being managed well by her Radar Mechanic with diuretics and main tenance of her [...] management of her heart failure by her Radar Mechanic 3) discontinue metformin 4) check 24 urine [...] | | 2018 | Visit | | [address] | | | | | | [place], [place] | | | | | | [address] | | | | | | [phone] | | | | | | | [...] + + | [facility] - | [address] | [place] | [phone] | | SAIMA | | | | [...]
--- OUTSIDE RECORDS SUMMARY | ~2019-05-20 | XMS | Encounter Summary ---
Demographics + + + | Address | [address] | | | [place] [address] | + + + | Home Phone [...] + | Katalina Padilla | ECON | [address] | | | | | [place], [place] | | | | | [address] | | + + + + + | Ellie Vang | ECON | Unknown | | + + + + + Care Team Providers + +------+ + | Care Captain Fishing Vessel Name | Role | Phone | + [...] Closed | | Physical | Diagnoses | T[place]gner, | [facility] | | | | Therapy | Morbid | DANIELLE BrunerP | [address] | | | | | obesity with | [address] | | | | | BMI of [address] | [address] | Mailcode: | | | | | and over, | [place], [place] | [facility] | | | | | adult (HCC) | [address] | for Health | | | | | Severe | Phone: | and Healing, | | | | | muscle | | Building 1, | | | | | deconditioni | Fax: | [address] | | | | | ng | [phone] | [place], [place] | | | | | Procedures | | [address] | | | | | PHYSICAL | | Phone: | | | | | THERAPY | | [phone] | | | | | REFERRAL | | Fax: | | | | | | | [phone] | +--------+--------+ + + + + Encounter Details +--------+ + + + + | Date | Type | Department | Care Team | Description | +--------+ + + + + | 02/02/ | Propeller Inspector | Digestive Health | Shereen Georges, | Morbid obesity with | | 2017 | | Center at [facility] [address] | ACNP [address] | BMI of 70 and over, | | | | [address] | Ave [facility] [place] | adult (HCC) (Primary | | | | Mailcode: Center | [address] | Dx); Severe muscle | | | | for Health and | | deconditioning | | | | Healing, [address] | | | | | | [place], [place] | | | | | | [address] | | | | | | | [...] | | 2019 | Visit | | [address] | | | | | | [place] [facility] [place] | | | | | | [address] | | | | | | [phone] | | | | | | | [...] (HCC) - Primary | + + | Severe muscle deconditioning Other specific muscle disorders | + + documented in this encounter"
--- OUTSIDE RECORDS SUMMARY | ~2019-05-20 | XMS | Encounter Summary ---
Demographics + + + | Address | [address] | | | [place] [address] | + + + | Home Phone [...] + | Katalina Padilla | ECON | [address] | | | | | [place], [place] | | | | | [address] | | + + + + + | Ellie Vang | ECON | Unknown | | + + + + + Care Team Providers + +------+ + | Care Casing Running Machine Tender Name | Role | Phone [...] | | 2019 | | Preventive at [facility] | [address] | | | | | [address] | [place], [place] | | | | | Mailcode: CH9A | [address] | | | | | [facility] | [phone] | | | | | and Healing, | | | | | | Building [address] | | | | | | [place], [place] | | | | | | [address] | | | | | | [phone] | | | +--------+ + + + [...] | | 2019 | Visit | | [address] | | | | | | [place], [place] | | | | | | [address] | | | | | | [phone] | | | | | | | | +--------+ + + + + | 07/08/ | Procedure | Surgery | | | | 2018 | Pass | | | | +--------+ + + + + documented as of this encounter Visit Diagnoses Not on filedocumented in this encounter"
--- OUTSIDE RECORDS SUMMARY | ~2019-05-20 | XMS | Encounter Summary ---
Demographics + + + | Address | [address] | | | [place] [address] | + + + | Home Phone [...] + | Katalina Padilla | ECON | [address] | | | | | [place], [place] | | | | | [address] | | + + + + + | Ellie Vang | ECON | Unknown | | + + + + + Care Team Providers + +------+ + | Care Fiberglass Luggage Molder Name | Role | Phone | [...] + + | 05/13/ | Emergency | [facility] Emergency | Nay Joe | | | 2019 - | | Department [address] MD [address] | | | | | [address] | [address] | | | 05/14/ | | [facility] | [place], [place] | | | 2019 | | [place], [place] | [address] | | | | | [address] | [phone] | | | | | [phone] | | | +--------+ + + + [...] might be different fr om the original. [facility] Discharge Summary Green Surgery Admit Date: [...] by mouth once daily at bedtime. CALCIUM CRB&OBS-U0-GDF98-GENIS ORAL Take 2 tablets by mouth two [...] passing gas, please go directly [facility] to be evaluated. Pain Medications: [...] the prescribed narcotic-opioid (e.g. oxycodone, hydrocodone, Vicodin, Concord, Percoce t, Dilaudid) as needed. Opioid pain medications may cause constipation, so be sure to take a stool softener if you take an opioid pain medication. FOLLOW-UP: Follow-up with your primary care provider for pain control. Dr. Tiwari's solid waste facility operator will contact you to try to find a date for surgery. Follow Up: Future Appointments Provider Department Dept Phone Center 06/27/2019 11:55 AM [facility] PHONE/RN CLIN 3 Preoperative Medicine Clinic at [place] [address] [phone] [facility] 06/30/2019 11:30 AM Aly Franks Cardiology in [facility] [place] [facility] Schedule the following appointment(s) when you get home JONES TIWARI MD. Specialty: General Surgery Why: Dr. Tiwari's solid waste facility operator will call you to schedule a surgery date. Contact information [address] [place] [address] [place] [address] Kenyatta Hylton MD. Specialty: Family [...] oriented. Grossly intact. Anisa Christopher MD PhD [facility] General Surgery ATTENDING PHYSICIAN STATEMENT I saw the patient and have repeated the pertinent portions of the history and physical exam . I agree with the findings, assessment and plan as documented by the resident. Johana Holloway MD Division of Gastrointestinal and General Surgery [facility] [address] [place] [address] Office: [phone] documented in this e ncounter Discharge Instructions [...] surgery date up as possible and the solid waste facility operator will contact you. Elec tronically signed by [...] passing gas, please go directly to [facility] to be evaluated. Pain Medications: [...] the prescribed narcotic-opioid (e.g. oxycodone, hydrocodone, Vicodin, Concord, Percoce t, Dilaudid) as needed. Opioid pain medications may cause constipation, so be sure to take a stool softener if you take an opioid pain medication. FOLLOW-UP: Follow-up with your primary care provider for pain control. Dr. Tiwari's solid waste facility operator will contact you to try to find [...] | | 0 | | | | CRB&PMS-[id number]-GEN | mouth two times | | | [...] | 06/30/ | Office | Cardiology | Aly Franks, | | | 2018 | Visit | | [address] | | | | | | [place], [place] | | | | | | [address] | | | | | | [phone] | | | | | | | [...] AMES | [address] | [place], [place] | | | JUSTINE DAWN OF CARE | [address] | [address] | | | TESTS | | | [...] [facility] | [address] | [place] [address] | | | SERVICES, CORE | CLARENCE [...] | | | LABORATORY | | | [place] | | | SERVICES, | | | [...] MDRD equation recommended by the National | [facility] | | Kidney Disease Education Program. Estimated [...] + + + + + | [facility] | [address] | [place] [address] | | | SERVICES, CORE | CLARENCE [...] 10 x 5 cm | | | (100). There is an additional small ventral [...] report as now presented. Final signature: Mae Charlene | | | MD Vadim 05/13/2019 9:04 [...] transverse colon measuring 10 x 5 cm (1/100). There is an additional | | small ventral hernia measuring about 3 cm containing a nondilated loop of small bowel | | (1/131). LYMPH NODES: Multiple prominent left mid abdomen [...] [facility] | [address] | [place] [address] | | | SERVICES, CORE | PARK [...] 5-6 weeks | | | 850 - 96379 6-7 weeks | | | 4000 - 833299 7-12 weeks | | | 54835 - 053513 12-16 weeks | | | 35674 - 379107 16-29 | | | weeks 1400 - 13980 | | | 29-41 weeks 940 - 43896 | | | This test has not been approved for use as a tumor marker in | | | males or females. | | + + + + + + + + | Performing | Address | City/State/Zipcode | Phone Number | | Organization | | | | + + + + + | [facility] | [address] [facility] | [place] [address] | | | SERVICES, CORE | PARK [...] [facility] | [address] | [place] [address] | | | SERVICES, CORE | CLARENCE [...] | | | LABORATORY | | | [place] | | | SERVICES, | | | [...] MDRD equation recommended by the National | [facility] | | Kidney Disease Education Program. Estimated GFR Interpretive | LABORATORY | | Information: <60 mL/min/1.73 sq m Chronic Kidney | SERVICES, [facility] | | Disease <15 mL/min/1.73 sq m [...] + + + + + | [facility] | [address] [facility] | [place] [address] | | | LYDIA RANGEL | [address] | | | + + + + + ED INFORMATION EXCHANGE (05/13/2019 5:14 PM PDT) + + | Specimen | + + | | + + + + + | Narrative | Performed At | + + + | COLLECTIVE?NOTIFICATION?05/13/2019 17:13?DYLAN ROMERO?MRN: | COLLECTIVE | | [id number] Criteria Met Has Guidelines PDMP Security | MEDICAL | | and Safety No recent Security Events currently on file ED Care | [employer]OLOG[employer] | | Guidelines from [employer] [facility] Last Updated: 12/06/18 9:53 AM | | | Care Coordination: Receiving mental health services with | | | [employer].? Please contact [employer] for mental health concerns.? | | | Sarah/Toni Centeno: [phone]? Kishan: [phone].? | | | These are guidelines and the provider should exercise clinical | | | judgment when providing care. Care History Medical/Surgical | | | 05/11/19 12:00 AM [facility] Patient is | | | currently established with [facility]. If patient is seen in | | | the ED during business hours. Please contact CHWs at [facility] | | | Clinic. Care Recommendation: [...] 08/23/18 12:00 AM | | | [facility] PATIENT HAS A PCP APT TO ESTABLISH | | | CARE ON 10/04/18 @ 10:00AM WITH DR HYLTON. Prescription | | | Drug Report (12 Mo.) Rx Details Fill Date Drug Description Qty. | | | Prescriber MED 2019-05-12 FENTANYL 12 MCG/HR PATCH 5 BETZY | | | JAVIER BALDWIN 2 0 2019-04-18 ALPRAZOLAM 1 MG TABLET 60 WINSTON DAMON 4 | | | 0 2019-04-13 BELBUCA 600 MCG FILM 57 BETZY BALDWIN PA-C 0 | | | 2019-04-12 BELBUCA 600 MCG FILM 3 BETZY BALDWIN PA-C 0 | | | 2019-04-09 SUDOGEST 30 MG TABLET 5 BERNARDO MARTIN, PLASTER MACHINE TENDER 0 | | | 2019-03-30 SUDOGEST 30 MG TABLET 30 BERNARDO MARTIN, PLASTER MACHINE TENDER 0 | | | 2019-03-20 ALPRAZOLAM 1 MG TABLET 60 WINSTON DAMON 4 0 2019-03-14 | | | BELBUCA 600 MCG FILM 58 JFEFREY ORR 0 2019 PHENTERMINE | | | 37.5 MG TABLET 90 ALY FRANKS MD 4 0 2019-02-21 ALPRAZOLAM 1 | | | MG TABLET 60 WINSTON DAMON 4 0 2019-02-11 BELBUCA 600 MCG FILM [...] (12 mo.) Facility Visits | | | [facility] 1 [facility] 1 | | | [facility] 2 Total 4 Note: Visits indicate total | | | known visits. Recent Emergency Department Visit Summary Date | | | Facility City State Type Diagnoses or Chief Complaint May 13, 2019 | | | [facility] [place] Emergency | | | 10,800. A303 May 10, [address] [facility] [address] [place] | | | Emergency Nausea with vomiting, unspecified Solitary | | | pulmonary nodule Anxiety disorder, unspecified Ventral | | | hernia without obstruction or gangrene Unspecified abdominal | | | pain Diarrhea, unspecified Allergy status to oth | | | drug/meds/biol subst status Prsnl hx of TIA (TIA), and cereb | | | infrc w/o resid deficits Other watermaster (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 | | | Allergy status to penicillin December 03, 2018 [facility] | | | [facility] [place]. [place] Emergency RIGHT LEG PAIN DUE TO FALL | | | Strain of unsp musc/tend at lower leg level, right leg, init Jul | | | [facility] [place] [place] [facility] Other group home | | | (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 Upper abdominal pain, unspecified | | | Bariatric surgery status Allergy status to oth drug/meds/biol | | | subst status Noninfective gastroenteritis and colitis, | | | unspecified Obesity, unspecified Anxiety disorder, | | | unspecified superintendent container terminal (current) use of aspirin Allergy | | | status to penicillin Personal history of pulmonary embolism | | | Recent Inpatient Visit Summary No recorded inpatient visits. | | | Care Team Provider Specialty Phone Fax Service Dates Treva, | | | Rob Severity Of Illness Coordinator/Ship Construction Teacher Mar 27, 2018 - | | | Current Bernard Hylton MD Internal Medicine: Pulmonary Disease | | | Aug 23, 2018 - Current [employer] This patient has | | | registered at the [facility] [place] Emergency | | | Department For more information visit: | | | [email or web address] | | | [email or web address] PLEASE NOTE: 1. Any care recommendations [...] or completeness of information provided. ? 2019 [employer] | | | [employer]. - [email or web address] | | + + + + + | Procedure Note | + + | Service Account, Rtf Results Inbound - 05/13/2019 5:16 PM PDT Formatting of this | | note might be different from the original.COLLECTIVE?NOTIFICATION?05/13/2019 | | 17:13?DYLAN ROMERO? [facility] Has Guidelines PDMPSecurity and | | SafetyNo recent Security Events currently on fileED Care Guidelines from [employer] - | | [place] Updated: 12/06/18 9:53 AM Care Coordination:Receiving mental health | | services with [employer].? Please contact [employer] for mental health concerns.? | | Sarah[facility]Toni [facility]: [phone]? Kishan: [phone].?These are guidelines | | and the provider should exercise clinical judgment when providing care.Care | | HistoryMedical/Jslklurh65/16/19 12:[address] [facility] Patient is currently | | established with [facility]. If patient is seen in the ED during business hours. | | Please contact CHWs at [facility].Care Recommendation:This patient has had 5 or | [...] clinical judgment when providing care.08/23/18 12:00 AM [facility] | | Hospital PATIENT HAS A [...] | SUDOGEST 30 MG TABLET 5 BERNARDO MARTIN NP 0 2019-03-30 SUDOGEST 30 MG TABLET 30 | | BERNARDO MARTIN NP 0 2019-03-20 ALPRAZOLAM 1 MG TABLET 60 [...] 2019-01-20 ALPRAZOLAM 1 MG TABLET 60 WINSTON JOSE 4 0 | | 2019-01-14 BELBUCA 600 MCG FILM 56 HIOPLITO FERRERC 0 2019-01-05 BELBUCA 450 MCG | | FILM 48 HIPOLITO FERRERC 0 2019-01-02 PHENTERMINE 37.5 MG TABLET 30 ALY | | MD JR 4 0 2018-12-24 BELBUCA 450 MCG FILM 24 HIPOLITO FERRERC 0 2018-12-03 | | PHENTERMINE 37.5 MG TABLET 30 ALY FRANKS MD 4 0 2018-11-26 BELBUCA 450 MCG FILM | | 56 HIPOLITO FERRERC 0 2018-11-24 BELBUCA 300 MCG FILM 16 BETZY BALDWIN PA-C 0 | | Showing 20 of the 37 most-recent prescriptions Rx SummaryMetric Count CS II-V Rx 23 | | CS-II Rx 1 Quantity Dispensed 1,360 Unique Prescrib[facility] 6 [facility] 3 Benzos 4 | | Opioids 7 Long Acting Opioids 0 E.D. Visit Count (12 mo.)Facility Visits [facility] | | [facility] 1 [facility] 1 [facility] 2 Total 4 Note: | | Visits indicate total known visits. Recent Emergency Department Visit SummaryDate | | Facility City State Type Diagnoses or Chief Complaint May 13, 2019 [facility] and | | [facility] [place] Emergency 10,800. A303 May 10, 2019 [facility] | | [place] Emergency Nausea with vomiting, unspecified Solitary pulmonary nodule | | Anxiety disorder, unspecified Ventral hernia without obstruction or gangrene | | Unspecified abdominal pain Diarrhea, unspecified Allergy status to oth | | drug/meds/biol subst status Prsnl hx of TIA (TIA), and cereb infrc w/o resid deficits | | Other group home (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 Allergy status to penicillin December 03, 2018 | | [facility] [place] Emergency RIGHT LEG PAIN DUE TO FALL Strain of | | unsp musc/tend at lower leg level, right leg, init Aug 22, 2018 [facility] | | [place] Emergency Other group home (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 Upper abdominal pain, | | unspecified Bariatric surgery status Allergy status to oth drug/meds/biol subst | | status Noninfective gastroenteritis and colitis, unspecified Obesity, unspecified | | Anxiety disorder, unspecified [facility] (current) use of aspirin Allergy status | | to penicillin Personal history of pulmonary embolism Recent Inpatient Visit | | SummaryNo recorded inpatient visits. Care TeamProvider Specialty Phone Fax Service Dates | | Rob Tilley Severity Of Illness Coordinator/Ship Construction Teacher Mar 27, 2018 - Current | | Bernard Hylton MD Internal Medicine: Pulmonary Disease Aug 23, 2018 - Current | | [employer] [facility] patient has registered at the [facility] | | Emergency Department For more information visit: | | [email or web address] PLEASE | | NOTE: 1. Any care [...] to the | | limitations of applicable [employer] Policies. 3. You should consult directly with | | the organization that provided a care guideline or other clinical history with any | | questions about additional information or accuracy or completeness of information | | provided.? 2019 [employer]. - [email or web address] | |[facility] Pharm[facility] 3 | |Benzos 4 | |Opioids 7 | |Long Acting Opioids 0 | | | | | | | |E.D. Visit Count (12 mo.) | |Facility Visits | |[facility] 1 | |[facility] 1 | |[facility] 2 | |Total 4 | |Note: Visits indicate total known visits. | | | |Recent Emergency Department Visit Summary | |Date Facility City State Type Diagnoses or Chief Complaint | |May 13, 2019 [facility] [place] Emergency | | 10,800. A303 | | | |[facility] [place] [facility] | | Nausea with vomiting, unspecified | | Solitary pulmonary nodule | | Anxiety disorder, unspecified | | Ventral hernia without obstruction or gangrene | | Unspecified abdominal pain | | Diarrhea, unspecified | | Allergy status to oth drug/meds/biol subst status | | Prsnl hx of TIA (TIA), and cereb infrc w/o resid deficits | | Other group home (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 | | Allergy status to penicillin | | | |December 03, 2018 [facility]. [place] Emergency | | RIGHT LEG PAIN DUE TO FALL | | Strain of unsp musc/tend at lower leg level, right leg, init | | | |Aug 22, 2018 [facility] [place] Emergency | | Other watermaster (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 | | Upper abdominal pain, unspecified | | Bariatric surgery status | | Allergy status to oth drug/meds/biol subst status | | Noninfective gastroenteritis and colitis, unspecified | | Obesity, unspecified | | Anxiety disorder, unspecified | | superintendent container terminal (current) use of aspirin | | Allergy status to penicillin | | Personal history of pulmonary embolism | | | | | | | |Recent Inpatient Visit Summary | |No recorded inpatient visits. | | | |Care Team | |Provider Specialty Phone Fax Service Dates | |Rob Tilley Severity Of Illness Coordinator/Ship Construction Teacher Mar 27, 2018 - Current | |Bernard Hylton MD Internal Medicine: Pulmonary Disease Aug 23, 2018 - Current | | | |[employer] [facility] | |This patient has registered at the [facility] [place] Emergency Departmen t | |For more information visit: [email or web address] | |PLEASE NOTE: | | 1. Any [...] information provided. | | | |? 2019 [employer]. - [email or web address] | + + + + + + + | Performing | Address | City/State/Zipcode | Phone Number | | Organization | | | | + + + + + | [facility] | [address], | [place], [place] | [phone] | | [employer] | [address] | [address] | | + + + + + [...]
--- OUTSIDE RECORDS SUMMARY | ~2019-05-20 | XMS | Encounter Summary ---
Demographics + + + | Address | [address] | | | [place] [address] | + + + | Home Phone [...] [place], [place] | | | | | [address] | | + + + + + | Ellie Vang | ECON | Unknown | | + + + + + Care Team Providers + +------+ + | Care Partition Assembly Machine Operator Name | Role | Phone [...] | | [address] | Ave [place], [place] | | | | | Mailcode: [place] | [address] | | | | | for Health and | [phone] | | | | | [facility] 2 | | | | | | [facility] [place] | | | | | | [address] | | | | | | | [...] | | 2019 | Visit | | [address] | | | | | | [place] [facility] [place] | | | | | | [address] | | | | | | [phone] | | | | | | | | +--------+ + + + + | 07/08/ | Procedure | Surgery | | | | 2019 | Pass | | | | +--------+ + + + + documented as of this encounter Visit Diagnoses Not on filedocumented in this encounter"
--- OUTSIDE RECORDS SUMMARY | ~2019-05-20 | XMS | Encounter Summary ---
Demographics + + + | Address | [address] | | | [place] [address] | + + + | Home Phone [...] [place], [place] | | | | | [address] | | + + + + + | Ellie Vang | ECON | Unknown | | + + + + + Care Team Providers + +------+ + | Care Brands Editor Name | Role | Phone | + +------+ + | Fadi Goodrich DO | PCP | | + +------+ + Reason for Referral Consultation (Routine) +--------+ + + + + [...] | [facility] | | | with COMMERCIAL DRAFTER | | hypertension | [address] | [address] | | | | | Right | [address] | [address] | | | | | heart | [place], [place] | Mailcode: | | | | | failure | [address] | Center for | | | | | ([facility]) Type | Phone: | Health and | | | | | 2 diabetes | [phone] | Healing, | | | | | mellitus | Fax: | Building 2 | | | | | without | [phone] | [place], [place] | | | | | complication | | [address] | | | | | , with | | Phone: | | | | | long-term | | | | | | | current use | | Fax: | | | | | of insulin | | [phone] | | | | | ([facility]) | | | | | | | Procedures | | | | | | | CONSULT TO | | | | | | | BARIATRIC | | | | | | | SURGERY | | | +--------+ + + + + + Reason for [...] | | 2 diabetes | JEAN, | [place], [place] | | | | | mellitus | [place] [address] | [address] | | | | | without | Phone: | Phone: | | | | | complication | [phone] | [phone] | | | | | (HCC) | Fax: | Fax: | | | | | Procedures | [phone] | [phone] | | | | | NV EST | | | | | | | PATIENT | | | | | | | LEVEL V | | | +--------+--------+ + + + + Encounter Details +--------+---------+ + + + | Date | Type | Department | Care Team | Description | +--------+---------+ + + + | 11/28/ | Office | Cardiology | Randell Franks, | Essential | | 2017 | Visit | Preventive at [facility] | [address] | hypertension | | | | [address] | Ave [place], [place] | (Primary Dx); Right | | | | Mailcode: [facility] | [address] | heart failure (HCC); | | | | [facility] | [phone] | Type 2 diabetes | | | | and Healing, | | mellitus without | | | | Building [address] | | complication, with | | | | [place], [place] | | long-term current | | | | [address] | | use of insulin (HCC) | | | | [phone] | | | +--------+---------+ + + + [...] + + + | Blood Pressure | 110/46 | 11/28/2016 9:55 AM | | | | | PDT | | + + + + + | Pulse | 118 | 11/28/2016 9:55 AM | | | | | PDT | | + + + + + | Temperature | - | - | | + + + + + | Respiratory Rate | - | - | | + + + + + | Oxygen Saturation | 95% | 11/28/2016 9:55 AM | | | | | PDT | | + + + + + | Inhaled Oxygen | - | - | | | Concentration | | | | + + + + + | Weight | 179.4 kg (395 lb 9.6 | 11/28/2016 9:55 AM | | | | oz) | PDT | | + + + + + | Height | 154.9 cm (5' 1") | 11/28/2016 9:55 AM | | | | | PDT | | + + + + + | Body Mass Index | 74.75 | 11/28/2016 9:55 AM | | | | | PDT | | + + + + + documented in this encounter Progress Notes Randell Franks MD - 11/28/2016 9:35 AM PDTFormatting of this note might [...] 81 mg by mouth once daily. CALCIUM CRB&KUX-L6-PFN95-GENIS ORAL Take 2 tablets by mouth two times daily. dapagliflozin (FARXIGA) 5 mg oral tablet Take 1 tablet by mouth once daily. ergocalciferol (VITAMIN D2) 50,000 unit oral capsule Take 50,000 Units by mouth twice w eekly (on Thursday and ). fentaNYL 25 mcg/hr transdermal patch 72 hour 1 patch every seventy-two hours. FLUoxetine 20 mg oral tablet Take 60 mg by mouth once daily at bedtime. gabapentin 300 mg oral capsule Take 300 mg by mouth four times daily. HYDROcodone-acetaminophen 10-325 mg oral tablet Take 1 tablet by mouth every four hours as needed. insulin NPH 100 unit/mL subcutaneous suspension Inject 5 Units under the skin (SUBC) tw o times daily. insulin NPH-insulin regular 70-30 (RELION NOVOLIN 70/30) 100 unit/mL (70-30) subcutaneo us suspension Inject 100 Units under the skin (SUBC) once daily in the morning. magnesium oxide 400 mg oral tablet Take 400 mg by mouth once daily. metFORMIN 1,000 mg Oral tablet Take 1,000 mg by mouth two times daily. OLANZapine 15 mg oral tablet Take 30 mg by mouth once daily at bedtime. phentermine 37.5 mg oral tablet Take 1 tablet by mouth once daily in the morning. Admin ister before breakfast. potassium chloride SR 20 mEq [...] unit/mL (3 mL) subcutaneous insulin pen Inject 68 Units und er the skin (SUBC) once daily at bedtime. warfarin 10 mg oral tablet Take 1 tablet by mouth once daily in the evening. No current facility-administered medications for this visit. S: Dylan returns in follow-up of obesity and T2DM. Last time I saw her, I admitted her to the emergency room for congestive heart failure. Her cardiac echo showed preserved ejectio n fraction but dysfunctional RV and LV dynamics. This is consistent with preserved ejection fracture heart failure and she spent a month in the hospital getting diuresed. 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 Since then she has worked closely [facility] and has been been able to continue to keep her fluid off and out of needing to go back into the emergency room with recurrent heart failure symptoms. She is currently on U 100 insulin aAlong with NovoLog to treat her diabetes. She continues on phentermine and has continued to maintain her roughly 175 pound weight loss from her lif etime maximum. Her current plan is to be be referred back to bariatric surgery to undergo a bariatric procedure that would then allow her to be eligible for revisional plastic surgery of her massive panniculus and peripheral lipedema That have resulted in previous episodes o f cellulitis. ROS: No CP., no YO O: vitals BP 110/46 | Pulse 118 | Ht 1.549 m (5' 1") | Wt 179.4 kg (395 lb 9.6 oz) | SpO2 9 5% | BMI 74.75 kg/(m^2) PE: Gen: pleasant, NAD, crying and [...] for DYLAN CRISTINA ( ) as of 11/28/2016 18:03 11/28/2016 10:53 SODIUM, PLASMA (LAB) 140 POTASSIUM, PLASMA (LAB) 3.7 POTASSIUM CMNT No Hemo CHLORIDE, PLASMA (LAB) 108 TOTAL CO2, PLASMA (LAB) 21 ANION GAP 11 ANION GAP(ALB CORRECTED) 12 (H) BUN, PLASMA (LAB) 12 CREATININE PLASMA (LAB) 0.[address] [facility] >60 EGFR NON -[facility] >60 GLUCOSE, PLASMA (LAB) 170 (H) CALCIUM, PLASMA (LAB) 9.8 CALCIUM(ALB CORRECTED) 10.3 (H) AST(SGOT) 16 AST CMNT No Hemo ALT (SGPT) 25 ALK PHOS 119 (H) BILIRUBIN TOTAL 0.3 BILI T CMNT No Hemo TOTAL PROTEIN, PLASMA (LAB) 8.3 (H) ALBUMIN, PLASMA (LAB) 3.4 (L) CHOLESTEROL (LAB) 175 HDL CHOLESTEROL 34 (L) LDL CHOLEST 91 VLDL CHOLESTEROL 50 (H) NON-HDL CHOLESTEROL 141 (H) TOTAL TRIGLYCERIDE - LIPID LAB 248 (H) TSH 3.19 HEMOGLOBIN A1C 6.8 (H) Assessment: 1) HFpEF: This is currently being managed well by her primary care doctor with diuretics a nd maintenance of her massive weight loss. Further weight loss following a bariatric procedu re would improve this even more. 2) T2 Diabetes: Her A1c is much better now and I will go ahead and add in an SGLT 2 inhibit or, Which has been shown to reduce congestive heart failure episodes and cardiac mortality. 3) Morbid obesity: She has reached maximal medical weight loss 175 pounds from her baseline weight. I will go ahead and refer her back to bariatric surgery for consideration of a alfredo tomeka bypass operation. 4) Hypothyroidism: TSH stable, will continue to monitor yearly. Plan: 1) Continue healthy diet and activity as tolerated 2) Continue management of her heart failure by her PCP 3) add in Farxiga 5 mg a day 4) referral to bariatric surgery for consideration of gastric bypass 5) Continue phentermine 37.5 mg a day 6) Follow-up 4-6 months P M DIETERdocujanneth in this encounter Plan of Treatment +--------+ [...] | | 2018 | Visit | | [address] | | | | | | [place], [place] | | | | | | [address] | | | | | | [phone] | | | | | | | | +--------+ + + + + | 07/08/ | Procedure | Surgery | | | | 2019 | Pass | | | | +--------+ + + + + documented as of this encounter Results TSH (11/28/2016 10:53 AM [...] utilizing a similar TSH assay, and | LYDIA RANGEL | | should be interpreted with caution. | | + + + + + + + + | Performing | Address | City/State/Zipcode | Phone Number | | Organization | | | | + + + + + | [facility] | [address] | [place] [address] | | | LYDIA RANGEL | [place]ENCE [...] | [address]. | LABORATORY | | | SERVICES, LIPID | + + + + + + + + | Performing | Address | City/State/Zipcode | Phone Number | | Organization | | | | + + + + + | [facility] | [address] | [place], [place] | | | SERVICES, LIPID | [address] | [address] | | + + + + + [...] glycated albumin should be considered for monitoring nursing home | LABORATORY | | glycemic control in [...] | + + + + + | [facility] | [address] | [place] [address] | | | SERVICES, SPECIAL | CLARENCE [...] | | LABORATORY | | | [facility] | | | SERVICES, | | | [...] | + + + + + | [facility] | [address] | [place] [address] | | | SERVICES, CORE | PARK [...]
--- OUTSIDE RECORDS SUMMARY | ~2019-05-20 | XMS | Encounter Summary ---
Demographics + + + | Address | [address] | | | [place] [address] | + + + | Home Phone [...] + | Katalina Padilla | ECON | [address] | | | | | [place], [place] | | | | | [address] | | + + + + + | Ellie Vang | ECON | Unknown | | + + + + + Care Team Providers + +------+ + | Care Branch Service Leader Name | Role | Phone | + +------+ + | Fadi Goodrich DO | PCP | | + +------+ + Encounter Details +--------+ + + + + | Date | Type | Department | Care Team | Description | +--------+ + + + + | 02/09/ | Abstract | Digestive Health | Clinic, Surgery | | | 2016 | | [place] [address] [address] | | | | | | [address] | | | | | | Mailcode: [place] | | | | | | [facility] Health and | | | | | | [facility] 2 | | | | | | [place], [place] | | | | | | [address] | | | | | | [phone] | | | +--------+ + + + [...] | | 2019 | Visit | | [address] | | | | | | [place], [place] | | | | | | [address] | | | | | | [phone] | | | | | | | | +--------+ + + + + | 07/08/ | Procedure | Surgery | | | | 2019 | Pass | | | | +--------+ + + + + documented as of this encounter Visit Diagnoses Not on filedocumented in this encounter"
--- OUTSIDE RECORDS SUMMARY | ~2019-05-20 | XMS | Encounter Summary ---
Demographics + + + | Address | [address] | | | [place] [address] | + + + | Home Phone [...] + | Katalina Padilla | ECON | [address] | | | | | [place], [place] | | | | | [address] | | + + + + + | Ellie Vnag | ECON | Unknown | | + + + + + Care Team Providers + +------+ + | Care Retail Field Representative Name | Role | Phone | [...] | Cardiology | Diagnoses | [place], | Tniy, | | | | | Unspecified | Kathy Feliciano NP | MD Randell | | | | | essential | [address] | [address] | | | | | hypertension | [address], | Ave | | | | | Type II or | [address] | [place], [place] | | | | | unspecified | [place], [place] | [address] | | | | | type | [address] | Phone: | | | | | diabetes | Phone: | [phone] | | | | | mellitus | [phone] | Fax: | | | | | without | Fax: | [phone] | | | | | mention of | [phone] | | | | | | complication [...] | 2013 | Visit | Preventive at [facility] | [address] | mellitus (HCC) | | | | [address] | Ave [place], [place] | (Primary Dx); | | | | Mailcode: 9A | [address] | Migraine headache | | | | [facility] | [phone] | | | | | and [place]rick, | | | | | | Building [address] | | | | | | [place], [place] | | | | | | [address] | | | | | | [phone] | | | +--------+---------+ + + + [...] twice w eekl (on Thursday and ). ferrous sulfate 325 [...] she is hypothyroid and put her on Circle Thyroid hormone replacement therapy. Her heart rate [...] 3-4 month, check A1c at that time. Analisa Gilbert MA - 12/05/2013 11:21 AM PDT documented [...] | | 2018 | Visit | | [address] | | | | | | [place], [place] | | | | | | [address] | | | | | | [phone] | | | | | | | [...] | + + + + + | [facility] | [address] | [place] [address] | | | SERVICES, SPECIAL | PARK [...]
--- OUTSIDE RECORDS SUMMARY | ~2019-05-20 | XMS | Encounter Summary ---
Demographics + + + | Address | [address] | | | [place] [address] | + + + | Home Phone [...] [place], [place] | | | | | [address] | | + + + + + | Ellie Vang | ECON | Unknown | | + + + + + Care Team Providers + +------+ + | Care Solar Energy System Installer Helper Name | Role | Phone | [...] [address] | | | | | | [facility] | [facility] | | | | | | Brock [facility] | Brock Mailcode: | | | | | | [facility] | [address] | | | | | | [place], [place] | Phsyicians | | | | | | [address] | [address] | | | | | | Phone: | [place], [place] | | | | | | [phone] | [address] | | | | | | | Phone: | | | | | | | [phone] | | | | | | | Fax: | | | | | | | [phone] | +--------+--------+ + + + + Encounter [...] [facility] [address] | [address] [place], | | | | | [place] | [place] [address] | | | | | Mailcode: [address] | [phone] | | | | | [facility] | | | | | | [address] [place], [place] | | | | | | [address] | | | | | | [phone] | | | +--------+---------+ + + + [...] Axel Gonzales MD - 03/06/2014 1:15 PM [facility] Attending: Tam [...] a HIDA scan to be done in [place] to verify that she does not have [...] Surgery Resident Department of General Surgery Pager: [phone] I saw and evaluated the patient. I agree with the findings and the plan of care as dequan han in the resident s note. PRADIP STARR MD [facility] SURGERY AT [facility] [address] [facility] Mailcode: [address] [place] [address] documented in this encoun ter [...] | | 2018 | Visit | | [address] | | | | | | [place], [place] | | | | | | [address] | | | | | | [phone] | | | | | | | [...] | + + + + + | [facility] | [address] | [place] [address] | | | SERVICES, CORE | [address] | | | + + + + + documented in this encounter Visit Diagnoses + + | Diagnosis | + + | Cholecystitis - Primary Cholecystitis, unspecified | + + documented in this encounter
--- OUTSIDE RECORDS SUMMARY | ~2019-05-20 | XMS | Encounter Summary ---
Demographics + + + | Address | [address] | | | [place] [address] | + + + | Home Phone [...] + | Katalina Padilla | ECON | [address] | | | | | [place], [place] | | | | | [address] | | + + + + + | Ellie Vang | ECON | Unknown | | + + + + + Care Team Providers + +------+ + | Care Income Tax Preparer Name | Role | Phone | + [...] 2012 | | Center at [facility] [address] | MD [address] | | | | | [address] | [facility] | | | | | Mailcode: Center | [place], [place] | | | | | [facility] Health and | [address] | | | | | [facility] 2 | [phone] | | | | | [place], [place] | | | | | | [address] | | | | | | [phone] | | | +--------+ + + + [...] | | 2018 | Visit | | [address] | | | | | | [place], [place] | | | | | | [address] | | | | | | [phone] | | | | | | | | +--------+ + + + + | 07/08/ | Procedure | Surgery | | | | 2018 | Pass | | | | +--------+ + + + + documented as of this encounter Visit Diagnoses Not on filedocumented in this encounter"
--- OUTSIDE RECORDS SUMMARY | ~2019-05-20 | XMS | Encounter Summary ---
Demographics + + + | Address | [address] | | | [place] [address] | + + + | Home Phone [...] + | Katalina Padilla | ECON | [address] | | | | | [place], [place] | | | | | [address] | | + + + + + | Ellie Vang | ECON | Unknown | | + + + + + Care Team Providers + +------+ + | Care Retail Cashier Name | Role | Phone | + [...] Hospital | | | | | | [facility], | [place], [place] | | | | | | Building [address] | [address] | | | | | | [place], [place] | Phone: | | | | | | [address] | [phone] | | | | | | Phone: | Fax: | | | | | | [phone] | [phone] | | | | | | Fax: | | | | | | | [phone] | | +--------+--------+ + + + + [...] | | | without | SURGICAL | [facility] | | | | | mention of | CLINIC [address] [place], | | | | | obstruction | [address] | [place] | | | | | or gangrene | [address]VE | [address] | | | | | | [place], | Phone: | | | | | | [place] [address] | [phone] | | | | | | Phone: | Fax: | | | | | | [phone] | [phone] | | | | | | Fax: | | | | | | | [phone] | | +--------+--------+ + + + + [...] | | | | Mailcode: Center | [place], [place] | | | | | [facility] and | [address] | | | | | [facility], [facility] 2 | [phone] | | | | | [place], [place] | | | | | | [address] | | | | | | [phone] | | | +--------+---------+ + + + [...] colonoscopy), but [facility] mentioned this was probably an incisional [...] issues. 2. Optimally will need coordination for [facility] Medicaid & [facility] Bariatric program for wt [...] material. 4. Continue to meet with her Lobby Concierge in the outpatient setting for diet and [...] has been instructed to f/u w/ her drum attendant for a strict diet of <1000 [...] teaching. Howie Faria MD MIS/Bariatric Fellow, Pager [phone] [facility] Attending provider: Hernandez Brian MD documented [...] | | | | | [place], [place] | | | | | | [address] | | | | | | [phone] | | | | | | | [...]
--- OUTSIDE RECORDS SUMMARY | ~2019-05-20 | XMS | Encounter Summary ---
Demographics + + + | Address | [address] | | | [place] [address] | + + + | Home Phone [...] + | Katalina Padilla | ECON | [address] | | | | | [place], [place] | | | | | [address] | | + + + + + | Ellie Vang | ECON | Unknown | | + + + + + Care Team Providers + +------+ + | Care Home Health Care Provider Name | Role | Phone | + [...] Diabetes & | Morbid | Kathy M, BAGGER AND STOCK HANDLER HELPER | [facility] [address] | | | | Metabolism | obesity | [address] | | | | | (HCC) | [address], | [address] | | | | | Procedures | [address] | Physician's | | | | | CONSULT TO | [place], [place] | [place] | | | | | ENDO | [address] | Physician's | | | | | [address] | Phone: | Pavilion | | | | | [address] | [phone] | [place], [place] | | | | | | Fax: | [address] | | | | | | [phone] | Phone: | | | | | | | [phone] | | | | | | | Fax: | | | | | | | [phone] | +--------+--------+ + + + + Encounter [...] | | Center at Physicians | Ave [place], [place] | ([facility]) (Primary Dx); | | | | Pavilion [address] | [address] | Type 2 diabetes | | | | [address] | [phone] | mellitus ([facility]); AMARA | | | | Physician's | | (obstructive sleep | | | | Pavilion | | apnea); Morbid | | | | Physician's Pavilion | | obesity ([facility]); | | | | [place], [place] | | Edema; GERD | | | | [address] | | (gastroesophageal | | | | [phone] | | reflux disease) | +--------+---------+ + [...] Goodrich DO Referring physician: Kathy Feldman, KALYAN [address] [place] [address] HPI: Dylan is a 38 y.o. female here for evaluation of Obesity and T2DM. Ms. Cristina has morb id obesity complicated by AMARA, [...] NL, no xanthomas Labs: Results for DYLAN CRISTINA ( ) as of 04/19/2013 10:53 11/12/2012 03:56 04/14/2013 11:09 SODIUM, PLASMA (LAB) 138 POTASSIUM, PLASMA (LAB) 4.1 POTASSIUM CMNT No Hemo CHLORIDE, PLASMA (LAB) 102 TOTAL CO2, PLASMA (LAB) 30 ANION GAP 6 ANION GAP(ALB CORRECTED) 9 BUN, PLASMA (LAB) 9 CREATININE PLASMA (LAB) 0.71 EGFR - [place] >60 EGFR NON -[place] >60 GLUCOSE, PLASMA (LAB) 113 (H) CALCIUM, [...] | | | | | [place], [place] | | | | | | [address] | | | | | | [phone] | | | | | | | [...] | PDT | type 2) ([facility]) | results section. | + +--------+ + + + | NV COLLECTION | Routin | 04/14/2013 | DM type 2 | | | CAPILLARY BLOOD | e | 11:08 AM | (diabetes mellitus, | | | SPECIMEN | | PDT | type 2) ([facility]) | | + +--------+ [...] | | | A1C,POC | | | [place] | | | [...] AMES | [address] | [place], [place] | | | JUSTINE DAWN OF JAKY | [address] | [address] | | | TESTS | | | | + + + + + documented in this encounter Visit Diagnoses + + | Diagnosis | + + | DM type 2 (diabetes mellitus, type 2) ([facility]) - Primary Type II or unspecified type [...] (pediatric) | + + | Morbid obesity (HCC) Morbid obesity | + + | Edema | + + | GERD (gastroesophageal reflux disease) Esophageal reflux | + + documented in this encounter
--- OUTSIDE RECORDS SUMMARY | ~2019-05-20 | XMS | Encounter Summary ---
Demographics + + + | Address | [address] | | | [place] [address] | + + + | Home Phone [...] [place], [place] | | | | | [address] | | + + + + + | Ellie Vang | ECON | Unknown | | + + + + + Care Team Providers + +------+ + | Care Full Stack Software Engineer Name | Role | Phone | [...] mellitus (HCC); | | | | at [facility] 3rd Floor | | Cholecystitis | | | | [address] | | | | | | [address] [place], | | | | | | [place] [address] | | | | | | [phone] | | | +--------+------+ + + + [...] | | 2018 | Visit | | [address] | | | | | | [place], [place] | | | | | | [address] | | | | | | [phone] | | | | | | | [...] + + + + + | [facility] | [address] | [place] [address] | | | LYDIA RANGEL | [address] [...] + + + + + | [facility] | [address] | [place] [address] | | | SERVICES, CORE | PARK [...] NKECHI ROBERTS | [address] | [place] [address] | | | SERVICES, SPECIAL | CLARENCE [...]
--- OUTSIDE RECORDS SUMMARY | ~2019-05-20 | XMS | Encounter Summary ---
Demographics + + + | Address | [address] | | | [place] [address] | + + + | Home Phone [...] [place], [place] | | | | | [address] | | + + + + + | Ellie Vang | ECON | Unknown | | + + + + + Care Team Providers + +------+ + | Care Director Of Nuclear Medicine Name | Role | Phone | + +------+ + | Fadi Goodrich DO | PCP | | + +------+ + Encounter Details +--------+ + + + + | Date | Type | Department | Care Team | Description | +--------+ + + + + | 06/09/ | Abstract | Cardiology | Randell Franks, | | | 2015 | | Preventive at [facility] | MD [address] | | | | | [address] | Ave [place], [place] | | | | | Mailcode: CH9A | [address] | | | | | [facility] | [phone] | | | | | and Healing, | | | | | | [address] | | | | | | [place], [place] | | | | | | [address] | | | | | | [phone] | | | +--------+ + + + [...] | | | | | [place], [place] | | | | | | [address] | | | | | | [phone] | | | | | | | | +--------+ + + + + | 07/08/ | Procedure | Surgery | | | | 2019 | Pass | | | | +--------+ + + + + documented as of this encounter Visit Diagnoses Not on filedocumented in this encounter"
--- OUTSIDE RECORDS SUMMARY | ~2019-05-20 | XMS | Encounter Summary ---
Demographics + + + | Address | [address] | | | [place] [address] | + + + | Home Phone [...] [place], [place] | | | | | [address] | | + + + + + | Ellie Vang | ECON | Unknown | | + + + + + Care Team Providers + +------+ + | Care Crm Solution Architect Name | Role | Phone | [...] | Abstract | Digestive Health | Ion Pandey Vinicius, | Outside Records | | 2018 | | Center at [address] | MD [address] | Received | | | | [address] | [place], [place] | | | | | Mailcode: [place] | [address] | | | | | [facility] and | | | | | | [facility] | | | | | | [place], [place] | | | | | | [address] | | | | | | | [...] | | 2018 | Visit | | [address] | | | | | | [place], [place] | | | | | | [address] | | | | | | [phone] | | | | | | | | +--------+ + + + + | 07/08/ | Procedure | Surgery | | | | 2019 | Pass | | | | +--------+ + + + + documented as of this encounter Visit Diagnoses Not on filedocumented in this encounter"
--- OUTSIDE RECORDS SUMMARY | ~2019-05-20 | XMS | Encounter Summary ---
Demographics + + + | Address | [address] | | | [place] [address] | + + + | Home Phone [...] + | Katalina Padilla | ECON | [address] | | | | | [place], [place] | | | | | [address] | | + + + + + | Ellie Vang | ECON | Unknown | | + + + + + Care Team Providers + +------+ + | Care Window Shade Cutter Name | Role | Phone | [...] [id number] | | | | | | [facility] | | | | | | [place], [place] | | | | | | [address] | | | | | | [phone] | | | +--------+ + + + [...] | | 2019 | Visit | | [address] | | | | | | [place], [place] | | | | | | [address] | | | | | | [phone] | | | | | | | | +--------+ + + + + | 07/08/ | Procedure | Surgery | | | | 2019 | Pass | | | | +--------+ + + + + documented as of this encounter Visit Diagnoses Not on filedocumented in this encounter"
--- OUTSIDE RECORDS SUMMARY | ~2019-05-20 | XMS | Encounter Summary ---
Demographics + + + | Address | [address] | | | [place] [address] | + + + | Home Phone [...] + | Katalina Padilla | ECON | [address] | | | | | [place], [place] | | | | | [address] | | + + + + + | Ellie Vang | ECON | Unknown | | + + + + + Care Team Providers + +------+ + | Care Cinnamon Grinder Name | Role | Phone | [...] | | | | evaluation | [address] | | | | | | [address]bid [address] | | | | | | obesity | [place], [place] | | | | | | (HCC) | [address] | | | | | | Procedures | Phone: | | | | | | PHYSICAL | | | | | | | THERAPY | Fax: | | | | | | REFERRAL | [phone] | | +--------+--------+ + + + + Encounter Details +--------+ + + + + | Date | Type | Department | Care Team | Description | +--------+ + + + + | 06/22/ | Director Of Counterintelligence | Digestive Health | Ion Pandey, | Pre-op evaluation | | 2016 | | Center at [facility] [address] | [address] | (Primary Dx); Morbid | | | | [address] | [place], [place] | obesity (HCC) | | | | Mailcode: Center | [address] | | | | | for Health and | | | | | | Healing, Building [address] | | | | | | [place], [place] | | | | | | [address] | | | | | | [phone] | | | +--------+ + + + [...] | | 2019 | Visit | | [address] | | | | | | [place], [place] | | | | | | [address] | | | | | | [phone] | | | | | | | [...]
--- OUTSIDE RECORDS SUMMARY | ~2019-05-20 | XMS | Encounter Summary ---
Demographics + + + | Address | [address] | | | [place] [address] | + + + | Home Phone [...] + | Katalina Padilla | ECON | [address] | | | | | [place], [place] | | | | | [address] | | + + + + + | Ellie Vang | ECON | Unknown | | + + + + + Care Team Providers + +------+ + | Care Helix Coil Winder Name | Role | Phone [...] | | | | | Ventral | [address] | [id number] | | | | | hernia | Phone: | [place] | | | | | without | [phone] | [address] | | | | | obstruction | Fax: | [place], | | | | | or gangrene | [phone] | [place] [address] | | | | | Mixed | | Phone: | | | | | hyperlipidem | | [phone] | | | | | ia Diabetes | | Fax: | | | | | mellitus | | [phone] | | | | | type 2 [...] | | | | | | | [place] [facility]PP[facility] | | | | | | | ENDOSCOPY,BI | | | | | | | [place] | | | | | | [...] | | | | Mailcode: Center | [address] | Ventral hernia | | | | for Health and | [phone] | without obstruction | | | | Healing, [address] | | or gangrene; Mixed | | | | [place], [place] | | hyperlipidemia; | | | | [address] | | 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[phone] | | type 2 without | | [...] to POC and will call or send [employer] message if any issues. documented in this [...] tongue once daily., Disp: , Rfl: CALCIUM [id number]-GENIS ORAL, Take 2 tablets by mouth two [...] Pneumonia Shortness of breath Staphylococcal infection Stroke ([facility]) TIA (transient ischemic attack) due to Bromocriptine Tinea corporis UTI (urinary tract infection) Past Surgical History Procedure Laterality Date Tonsillectomy and adenoidectomy Appendectomy, open 2010 Umbilical hernia repair 2010 Treatment of ankle fracture with screws remaining Incision and drainage of wound abscess x2 midline transverse wound s/p open appendectomy 2010 Ventral hernia repair 10/2012 Dr. Andie Brian Incisional hernia repair 03/01/2015 [facility]/ Dr. Cantu. Primary fascial closure and scar excision Lap gastric byp, and nilesh-en-y gastroenterostomy w/ nilesh limb 150 cm or less 8 [facility] Social History Social History Marital status: Single Spouse name: N/A Number of children: 1 Years of education: N/A Occupational History disabled None Social History Main Topics Smoking status: Former Smoker Smokeless tobacco: Never Used Alcohol use No Drug use: No Sexual activity: Not on file Social History Narrative Updated 11/09/15 She lives in [place] with her mother and her sister (also her caregiver) lives in an apa rtment/duplex below. She has 2 grandchildren (age 4 and 7) who live with her daughter and son-in-law Her boyfriend lives in [place] HFpEF, DM2, HTN, Sleep Apnea (unable to [...] program here and refer her to our radiosonde specialist who also has expertise in physical [...] and documenting after this visit. Ronna SANTOSP OVEN TENDER BAGELS Bariatric Surgery Nurse Practitioner [facility] | [address] | [place], [place] | [address] | documented in this e ncounter Plan [...] | | | | | [place], [place] | | | | | | [address] | | | | | | [phone] | | | | | | | | +--------+ + + + + | 07/08/ | Procedure | Surgery | | | | 2018 | Pass | | | | +--------+ + + + + documented as of this encounter Results X-RAY MIRIAM CASTLELON (06/07/2018 9:47 AM PST) + + | Specimen | + + | | + + + + + | Narrative | Performed At | + + + | EXAM: Esophagram with continuous improvement engineer radiograph HISTORY: RYGB 03/01/2018, | [facility] | | vomiting/pain ever since COMPARISON: 04/27/2018 CT TECHNIQUE: | RADIOLOGY VOICE | | Cash Controller radiograph was performed. Single contrast exam of the esophagus, | RECOGNITION 2 | | gastric pouch, and gastrojejunostomy in upright positioning. | | | Radiation dose reduction technique was maximized where appropriate | | | using pulsed fluoroscopy and fluoro-store images. Fluoro Time 57 | | | second(s) FINDINGS: Cash Controller shows stone in the upper pole of [...] AM PST EXAM: Esophagram | | with continuous improvement engineer radiograph HISTORY: RYGB 03/01/2018, vomiting/pain ever since COMPARISON: | | 04/27/2018 CT TECHNIQUE: Cash Controller radiograph was performed. Single contrast exam of the | | esophagus, gastric pouch, and gastrojejunostomy in upright positioning. Radiation dose | | reduction technique was maximized where appropriate using pulsed fluoroscopy and | | fluoro-store images. Fluoro Time 57 second(s) FINDINGS:Cash Controller shows stone in the upper | | [...] | + + + + + | [facility] | [address] | [place] [address] | | | SERVICESLYDIA | [address] | | | + + + + + HEMOGLOBIN A1C, BLOOD (05/27/2018 4:01 PM PDT) + + + + + + | Component | Value | Ref Range | Performed | Pathologist | | | | | At | Signature | + + + + + + | HEMOGLOBIN | 6.1 (H)Comment: Hgb A1C | <5.7 % | [facility] | | | A1C | Interpretive | [...] | [facility] | | considered for monitoring excavator backhoe operator glycemic control in patients with: | [...] | + + + + + | [facility] | [address] | [place] [address] | | | SERVICES, SPECIAL | PARK [...] | | | | | determined by [employer] | | | | | | Laboratories. See | | | | | | Compliance Statement B: | | | | | | [employer].Scriptick/CSPerformed | | | | | | by [employer],[address] | | | | | | Liliana Martinez [facility],[place] | | | | | | [address] | | | | | | [phone].[employer]. | | | | | | comIsmael [...] [facility] | [address] | [place], [place] | | | UNIV PTH - INTFC | | [address] | | + + + + + [...] | + + + + + | [facility] | [address] | [place] [address] | | | SERVICES, CORE | PARK [...] [facility] | [address] | [place] [address] | | | SERVICES, CORE | CLARENCE [...] | + + + + + | [facility] | [address] | [place] [address] | | | SERVICES, CORE | CLARENCE [...] [facility] | [address] | [place] [address] | | | SERVICES, CORE | PARK [...] [facility] | [address] | [place] [address] | | | SERVICES, CORE | PARK [...] [facility] | [address] | [place] [address] | | | SERVICES, CORE | PARK [...]
--- OUTSIDE RECORDS SUMMARY | ~2019-05-20 | XMS | Encounter Summary ---
Demographics + + + | Address | [address] | | | [place] [address] | + + + | Home Phone [...] [address] | | | | | [place], [place] | | | | | [address] | | + + + + + | Ellie Vang | ECON | Unknown | | + + + + + Care Team Providers + +------+ + | Care Abnormal Psychology Teacher Name | Role | Phone | + +------+ + | Fadi Goodrich DO | PCP | | + +------+ + Encounter Details +--------+ + + + + | Date | Type | Department | Care Team | Description | +--------+ + + + + | 02/10/ | Abstract | Digestive Health | Hernandez Brian, | | | 2012 | | Center at [facility] [address] | MD [address] | | | | | [address] | [facility] | | | | | Mailcode: Center | [place], [place] | | | | | [facility] and | [address] | | | | | [facility] | [phone] | | | | | [place], [place] | | | | | | [address] | | | | | | [phone] | | | +--------+ + + + [...] | | 2018 | Visit | | [address] | | | | | | [place], [place] | | | | | | [address] | | | | | | [phone] | | | | | | | | +--------+ + + + + | 07/08/ | Procedure | Surgery | | | | 2018 | Pass | | | | +--------+ + + + + documented as of this encounter Visit Diagnoses Not on filedocumented in this encounter"
--- OUTSIDE RECORDS SUMMARY | ~2019-05-20 | XMS | Encounter Summary ---
Demographics + + + | Address | [address] | | | [place] [address] | + + + | Home Phone [...] [place], [place] | | | | | [address] | | + + + + + | Ellie Vang | ECON | Unknown | | + + + + + Care Team Providers + +------+ + | Care Cigar Packer And Shader Name | Role | Phone | + [...] | | 2017 | | Preventive at [facility] | MD [address] | | | | | [address] | [place] [facility] [place] | | | | | Mailcode: [facility] | [address] | | | | | [facility] | [phone] | | | | | and [address] | | | | | | [address] | | | | | | [facility] [place] | | | | | | [address] | | | | | | [phone] | | | +--------+ + + + [...] | | | | | [place], [place] | | | | | | [address] | | | | | | [phone] | | | | | | | | +--------+ + + + + | 07/08/ | Procedure | Surgery | | | | 2018 | Pass | | | | +--------+ + + + + documented as of this encounter Visit Diagnoses Not on filedocumented in this encounter"
--- OUTSIDE RECORDS SUMMARY | ~2019-05-20 | XMS | Encounter Summary ---
Demographics + + + | Address | [address] | | | [place] [address] | + + + | Home Phone [...] + | Katalina Padilla | ECON | [address] | | | | | [place], [place] | | | | | [address] | | + + + + + | Ellie Vang | ECON | Unknown | | + + + + + Care Team Providers + +------+ + | Care Pipe Washer Name | Role | Phone | [...] 2019 | | Preventive at [facility] | MD [address] | (PHENTERMINE 37.5 mg | | | | [address] | [place], [place] | oral tablet); | | | | Mailcode: [place] | [address] | Refill Request | | | | [facility] | [phone] | | | | | and [address], | | | | | | [address] | | | | | | [place], [place] | | | | | | [address] | | | | | | [phone] | | | +--------+--------+ + + + [...] | | 2019 | Visit | | [address] | | | | | | [place] [facility] [place] | | | | | | [address] | | | | | | [phone] | | | | | | | | +--------+ + + + + | 07/08/ | Procedure | Surgery | | | | 2019 | Pass | | | | +--------+ + + + + documented as of this encounter Visit Diagnoses Not on filedocumented in this encounter"
--- OUTSIDE RECORDS SUMMARY | ~2019-05-20 | XMS | Encounter Summary ---
Demographics + + + | Address | [address] | | | [place] [address] | + + + | Home Phone [...] + | Katalina Padilla | ECON | [address] | | | | | [place], [place] | | | | | [address] | | + + + + + | Ellie Vang | ECON | Unknown | | + + + + + Care Team Providers + +------+ + | Care Hire Car Driver Name | Role | Phone [...] Ave | | | | Order | [facility] | [place], [place] | | | | | [address] | [address] | | | | | Mailcode: OC2L | [phone] | | | | | [facility] | | | | | | and Healing, | | | | | | [address] | | | | | | [facility] [place] | | | | | | [address] | | | | | | [phone] | | | +--------+ + + + [...] | | | | | [place], [place] | | | | | | [address] | | | | | | [phone] | | | | | | | [...]
--- OUTSIDE RECORDS SUMMARY | ~2019-05-20 | XMS | Encounter Summary ---
Demographics + + + | Address | [address] | | | [place] [address] | + + + | Home Phone [...] [place], [place] | | | | | [address] | | + + + + + | Ellie Vang | ECON | Unknown | | + + + + + Care Team Providers + +------+ + | Care Staff Anesthesiologist Name | Role | Phone | + [...] | | 2018 | Visit | | [address] | | | | | | [place], [place] | | | | | | [address] | | | | | | [phone] | | | | | | | | +--------+ + + + + | 07/08/ | Procedure | Surgery | | | | 2018 | Pass | | | | +--------+ + + + + documented as of this encounter Visit Diagnoses Not on filedocumented in this encounter"
--- OUTSIDE RECORDS SUMMARY | ~2019-05-20 | XMS | Encounter Summary ---
Demographics + + + | Address | [address] | | | [place] [address] | + + + | Home Phone [...] + | Katalina Padilla | ECON | [address] | | | | | [place], [place] | | | | | [address] | | + + + + + | Ellie Vang | ECON | Unknown | | + + + + + Care Team Providers + +------+ + | Care Coal Deliverer Name | Role | Phone | + [...] | | | | | | [place] [address] | | | +--------+ + + + [...] | | | | | [place], [place] | | | | | | [address] | | | | | | [phone] | | | | | | | | +--------+ + + + + | 07/08/ | Procedure | Surgery | | | | 2018 | Pass | | | | +--------+ + + + + documented as of this encounter Visit Diagnoses Not on filedocumented in this encounter"
--- OUTSIDE RECORDS SUMMARY | ~2019-05-20 | XMS | Encounter Summary ---
Demographics + + + | Address | [address] | | | [place] [address] | + + + | Home Phone [...] + | Katalina Padilla | ECON | [address] | | | | | [place], [place] | | | | | [address] | | + + + + + | Ellie Vang | ECON | Unknown | | + + + + + Care Team Providers + +------+ + | Care Bilingual Spanish Inbound Sales Name | Role | Phone | [...] | | | | | bypass | [place], | Mailcode: | | | | | Nausea and | [place] | [address] [facility] | | | | | vomiting, | [address] | Hospital | | | | | intractabili | Phone: | [place], [place] | | | | | ty of | | [address] | | | | | vomiting not | Fax: | Phone: | | | | | specified, | [phone] | [phone] | | | | | unspecified | | Fax: | | | | | vomiting | | [phone] | | | | | type | [...] | | | | | bypass | [place], | Mailcode: | | | | | Nausea and | [place] | [facility] | | | | | vomiting, | [address] | for Health | | | | | intractabili | Phone: | and Healing, | | | | | ty of | [phone] | Building 1, | | | | | vomiting not | Fax: | 5th Floor | | | | | specified, | [phone] | [place], [place] | | | | | unspecified | | [address] | | | | | vomiting | | Phone: | | | | | type | | [phone] | | | | | Diarrhea, | [...] | | | | | bypass | [place], | [address] | | | | | Nausea and | [place] | for Health | | | | | vomiting, | [address] | and Healing, | | | | | intractabili | Phone: | Building 2 | | | | | ty of | | [place], [place] | | | | | vomiting not | Fax: | [address] | | | | | specified, | [phone] | Phone: | | | | | unspecified | | [phone] | | | | | vomiting | | Fax: | | | | | type | | [phone] | | | | | Diarrhea, | [...] | [facility] | | | with INSOLE STIFFENER | | hypertension | [address] | [address] | | | | | Right | [address] | [address] | | | | | heart | [facility] [place] | Mailcode: | | | | | failure | [address] | Center for | | | | | ([facility]ERLY [facility]) Type | Phone: | Health and | | | | | 2 diabetes | [phone] | Healing, | | | | | mellitus | Fax: | Building 2 | | | | | without | [phone] | [facility] [place] | | | | | complication | | [address] | | | | | , with | | Phone: | | | | | long-term | | | | | | | current use | | Fax: | | | | | of insulin | | [phone] | | | | | ([facility]) | | | | | | | [...] | Center at [facility] [address] | AGACNP [address] | gastric bypass | | | | [address] | Ave [place], [place] | (Primary Dx); Nausea | | | | Mailcode: Center | [address] | and vomiting, | | | | for Health and | | intractability of | | | | Healing, Building 2 | | vomiting not | | | | [place], [place] | | specified, | | | | [address] | | unspecified vomiting | | | | [phone] | | type; Diarrhea, | | | [...] getting fluids at a local clinic in [place] -I will contact you if further testing is indicated -follow up with once of our surgeons once testing is complete -get some protein de la o--isopure or premier protein de la o. documented in this encounter Progress Notes Melissa Garay RN - 03/01/2019 1:50 PM PDTSpoke with patient's PCP office [phone] and notified them that Infusion unit at [facility] (fax [phone]) requires a provider with privileges there to sign the IV infusion orders. Since Dr. Cardenas is out on maternity leave, SOFI Ulrich will check with provider covering. Infusion order and chart not e faxed to PCP at [phone]. Patient notified. Charli Murillo MA - 03/01/2019 1:50 PM PDTPatient presents for blood draw per Providers order Site: LEFT A/C Time: 14:30 Patient tolerated well; ONE ATTEMPT Keren Arcos [facility] INSOLE STIFFENER - 03/01/2019 1:50 PM PDT BARIATRIC SURGERY [...] Dr. Andie Brian Incisional hernia repair 03/01/2015 [facility]/ Dr. Cantu. Primary fascial closure and scar excision Lap gastric byp, and nilesh-en-y gastroenterostomy w/ nilesh limb 150 cm or less 8 [facility] Social History Socioeconomic History Marital [...] History Narrative Updated 11/09/15 She lives in [place] with her mother and her sister (also her caregiver) lives in an apa rtment/duplex below. She has 2 grandchildren (age 4 and 7) who live with her daughter and son-in-law Her boyfriend lives in [place] HFpEF, DM2, HTN, Sleep Apnea (unable to tolerate CPAP), Hypothyroidism, Severe Obesity ([facility] weight 495 lbs) Last seen [...] program here and refer her to our product test specialist who also has expertise in physical [...] buccal film, , Disp: , Rfl: CALCIUM CRB&EXY-K3-CUM42-GENIS ORAL, Take 2 tablets by mouth two [...] oral tablet, Take 1 tablet by mo [facility] once daily., Disp: 90 tablet, Rfl: [...] y.o. female who is 1 year S/P Nielsh en y gastric bypass. 1. Nausea/Diarrhea x 4 weeks S/p Nilesh en y gastric bypass. -Denies GERD, dysphagia, constipation -ordered UGI, EGD to assess for ulcer/possible stricture/hernia, etc -CT scan also ordered to assess hernias sites--concern for possible incarceration? -will also coordinate IV fluid to be administered closer to her home in [place]. LR 1-2 L 3 times weekly, until [...] to plan and will call and/or send [employer] message if any issues. Start time 1422, end time 1455. I spent a total of 33 minutes face to face with this patie nt. Over 50% of visit was in counseling. ALBINA Perrin Bariatric Surgery Nurse Practitioner [facility] | [address] | [place], [place] | [address] | documented in th is encounter Plan [...] | | 2018 | Visit | | [address] | | | | | | [place], [place] | | | | | | [address] | | | | | | [phone] | | | | | | | [...] Fierro MD 03/08/2019 3:32 PM | |Preliminary: Mea Fierro MD | |Dictation initiated: Mae Fierro [...] [facility] | [address] | [place] [address] | | | SERVICES, CORE | CLARENCE [...] | | | | | determined by [employer] | | | | | | Laboratories. See | | | | | | Compliance Statement B: | | | | | | Hypereight.Pollenizer/CSPerformed | | | | | | by [employer],[address] | | | | | | Liliana Martinez, [facility],[place] | | | | | | [address] | | | | | | [phone].Hypereight. | | | | | | [facility] centerIsmael MD, | | | [...] + + | [facility] | [address] [facility] | [place], [place] | | | UNIV PTH - INTFC | | [address] | | + + + + + [...] [facility] | | | (YEN NOAH) | [facility],[address] | | REG UNIV | | | SERUM | Liliana Martinez, [facility],[place] | | PTH - INTFC | | | | [address] | | | | | | [phone].aruplab. | | | | | | Ismael [...] B: | | | | | | Skedo/CS | | | | + + + + + + + + | Specimen | + + | Blood - Blood | | (substance) | + + + + + + + | Performing | Address | City/State/Zipcode | Phone Number | | Organization | | | | + + + + + | [facility] | [address] | [place], [place] | | | UNIV PTH - INTFC | | [address] | | + + + + + [...] [facility] | [address] | [place] [address] | | | SERVICES, CORE | PARK [...] | + + + + + | [facility] | [address] | [place] [address] | | | SERVICES, CORE | CLARENCE [...] INTERPRETIVE | 70 - 180 nmol/L | [facility] | | | WHOLE [...] | | | | | determined by [employer] | | | | | | Laboratories. See | | | | | | Compliance Statement B: | | | | | | Hypereight.Pollenizer/CSPerformed | | | | | | by [employer],[address] | | | | | | [place], [place] | | | | | | [address] | | | | | | [phone].Hypereight. | | | | | | [facility] centerIsmael MD, | | | [...] [facility] | [address] | [place], [place] | | | UNIV PTH - INTFC | | [address] | | + + + + + [...] INTFC | | | | determined by [facility] | | | | | | Laboratories. See | | | | | | Compliance Statement B: | | | | | | Hypereight.Pollenizer/CSPerformed | | | | | | by Jost[facility],[address] | | | | | | [facility],[place] | | | | | | [address] | | | | | | [phone].Hypereight. | | | | | | com, [...] [facility] | [address] | [place], [place] | | | UNIV PTH - INTFC | | [address] | | + + + + + [...] [facility] | [address] | [place] [address] | | | SERVICES, CORE | PARK [...] | | | | | determined by [employer] | | | | | | Laboratories. See | | | | | | Compliance Statement B: | | | | | | Hypereight.Pollenizer/CSPerformed | | | | | | by [facility]ost[facility],[address] | | | | | | Liliana Martinez [facility],[place] | | | | | | [address] | | | | | | [phone].Hypereight. | | | | | | comIsmael [...] [facility] | [address] | [place], [place] | | | UNIV PTH - INTFC | | [address] | | + + + + + [...] [facility] | [address] | [place] [address] | | | SERVICES, CORE | PARK [...] [facility] | [address] | [place] [address] | | | SERVICES, CORE | PARK [...] + + | [facility] | [address] | [place] [address] | | | SERVICES, SPECIAL | CLARENCE [...] | + + + + + | [facility] | [address] | [place] [address] | | | SERVICES, CORE | CLARENCE [...] B: | | | | | | MedPageTodaylab.com/CSPerformed | | | | | | by [facility],500 | | | | | | [place] | | | | | | [address] | | | | | | [phone].WideAngle Technologiesuplab. | | | | | | Ismael [...] [facility] | [address] | [place], [place] | | | UNIV PTH - INTFC | | [address] | | + + + + + [...] | | | LABORATORY | | | BURUNDIAN | | | SERVICES, | | | [...] | + + + + + | [facility] | [address] | [place] [address] | | | CLAIRE, LYDIA | PARK [...]
--- OUTSIDE RECORDS SUMMARY | ~2019-05-20 | XMS | Encounter Summary ---
Demographics + + + | Address | [address] | | | [place] [address] | + + + | Home Phone [...] + | Katalina Padilla | ECON | [address] | | | | | [place], [place] | | | | | [address] | | + + + + + | Ellie Vang | ECON | Unknown | | + + + + + Care Team Providers + +------+ + | Care Video Game Designer Name | Role | Phone | [...] | | 2019 | | Center at [facility] [address] | AGACNP [address] | | | | | [address] | [place], [place] | | | | | Mailcode: [place] | [address] | | | | | for [facility] and | | | | | | [place] [address] | | | | | | [place], [place] | | | | | | [address] | | | | | | | [...] | 2019 | Visit | | [address] | | | | | | [place], [place] | | | | | | [address] | | | | | | [phone] | | | | | | | | +--------+ + + + + | 07/08/ | Procedure | Surgery | | | | 2019 | Pass | | | | +--------+ + + + + documented as of this encounter Visit Diagnoses Not on filedocumented in this encounter"
--- OUTSIDE RECORDS SUMMARY | ~2019-05-20 | XMS | Encounter Summary ---
Demographics + + + | Address | [address] | | | [place] [address] | + + + | Home Phone [...] + | Katalina Padilla | ECON | [address] | | | | | [place], [place] | | | | | [address] | | + + + + + | Ellie Vang | ECON | Unknown | | + + + + + Care Team Providers + +------+ + | Care Oil Heaterman Name | Role | Phone | + [...] | | [address] | [place], [place] | | | | | Mailcode: [place] | [address] | | | | | for Health and | [phone] | | | | | [facility] 2 | | | | | | [place], [place] | | | | | | [address] | | | | | | [phone] | | | +--------+ + + + [...] [place] | | | | | | [address] | | | | | | [phone] | | | | | | | | +--------+ + + + + | 07/08/ | Procedure | Surgery | | | | 2018 | Pass | | | | +--------+ + + + + documented as of this encounter Visit Diagnoses Not on filedocumented in this encounter"
--- OUTSIDE RECORDS SUMMARY | ~2019-05-20 | XMS | Encounter Summary ---
Demographics + + + | Address | [address] | | | [place] [address] | + + + | Home Phone [...] [place], [place] | | | | | [address] | | + + + + + | Ellie Vang | ECON | Unknown | | + + + + + Care Team Providers + +------+ + | Care Engineer Exhauster Name | Role | Phone | + [...] | | 2019 | | Center at [facility] [address] | MD [address] | | [address] | [address] | | | | | Mailcode: Center | [place], [place] | | | | | [facility] and | [address] | | | | | [facility] 2 | [phone] | | | | | [place], [place] | | | | | | [address] | | | | | | [phone] | | | +--------+ + + + [...] | | 2018 | Visit | | [address] | | | | | | [place], [place] | | | | | | [address] | | | | | | [phone] | | | | | | | | +--------+ + + + + | 07/08/ | Procedure | Surgery | | | | 2019 | Pass | | | | +--------+ + + + + documented as of this encounter Visit Diagnoses Not on filedocumented in this encounter"
--- OUTSIDE RECORDS SUMMARY | ~2019-05-20 | XMS | Encounter Summary ---
Demographics + + + | Address | [address] | | | [place] [address] | + + + | Home Phone [...] [place], [place] | | | | | [address] | | + + + + + | Ellie Vang | ECON | Unknown | | + + + + + Care Team Providers + +------+ + | Care Automobile Rental Clerk Name | Role | Phone | + +------+ + | Fadi Goodrich DO | PCP | | + +------+ + Encounter Details +--------+ + + + + | Date | Type | Department | Care Team | Description | +--------+ + + + + | 03/04/ | Telephone | Digestive Health | Ion Pandey, | | | 2018 | | [place] [facility] [address] | MD [address] | | | | | [address] | [place], [place] | | | | | Mailcode: [place] | [address] | | | | | for Health and | | | | | | [facility] 2 | | | | | | [facility] [place] | | | | | | [address] | | | | | | | [...] | 2018 | Visit | | MD [address] | | | | | | [place], [place] | | | | | | [address] | | | | | | [phone] | | | | | | | | +--------+ + + + + | 07/08/ | Procedure | Surgery | | | | 2018 | Pass | | | | +--------+ + + + + documented as of this encounter Visit Diagnoses Not on filedocumented in this encounter"
--- OUTSIDE RECORDS SUMMARY | ~2019-05-20 | XMS | Encounter Summary ---
Demographics + + + | Address | [address] | | | [place] [address] | + + + | Home Phone [...] + | Katalina Padilla | ECON | [address] | | | | | [place], [place] | | | | | [address] | | + + + + + | Ellie Vang | ECON | Unknown | | + + + + + Care Team Providers + +------+ + | Care Shellfish Harvester Name | Role | Phone | + +------+ + | Kenyatta Cardenas MD | PCP | | + +------+ + Encounter Details +--------+ + + + + | Date | Type | Department | Care Team | Description | +--------+ + + + + | 03/01/ | Procedure | Diagnostic Imaging | | | | 2019 | Pass | Services at [facility] | | | | | | [address] | | | | | | Lesly Gutiérrez Mailcode: | | | | | | [address] [facility] | | | | | | [place], [place] | | | | | | [address] | | | | | | [phone] | | | +--------+ + + + [...] 2018 | Visit | | [address] | | | | | | [place], [place] | | | | | | [address] | | | | | | [phone] | | | | | | | | +--------+ + + + + | 07/08/ | Procedure | Surgery | | | | 2018 | Pass | | | | +--------+ + + + + documented as of this encounter Visit Diagnoses Not on filedocumented in this encounter"
--- OUTSIDE RECORDS SUMMARY | ~2019-05-20 | XMS | Encounter Summary ---
Demographics + + + | Address | [address] | | | [place] [address] | + + + | Home Phone [...] + | Katalina Padilla | ECON | [address] | | | | | [place], [place] | | | | | [address] | | + + + + + | Ellie Vang | ECON | Unknown | | + + + + + Care Team Providers + +------+ + | Care Mobile Ui/Ux Designer Name | Role | Phone | [...] | | | | | | [place] [address] | | | +--------+ + + + [...] | | | | | [place], [place] | | | | | | [address] | | | | | | [phone] | | | | | | | | +--------+ + + + + | 07/08/ | Procedure | Surgery | | | | 2018 | Pass | | | | +--------+ + + + + documented as of this encounter Visit Diagnoses Not on filedocumented in this encounter"
--- OUTSIDE RECORDS SUMMARY | ~2019-05-20 | XMS | Encounter Summary ---
Demographics + + + | Address | [address] | | | [place] [address] | + + + | Home Phone [...] + | Katalina Padilla | ECON | [address] | | | | | [place], [place] | | | | | [address] | | + + + + + | Ellie Vang | ECON | Unknown | | + + + + + Care Team Providers + +------+ + | Care Financial Aid Coordinator Name | Role | Phone | [...] | HA [place] | | | with [facility] | | hypertension | [address] | [address] | | | | | Right | [address] | [place] | | | | | heart | [place], [place] | [place], | | | | | failure | [address] | [place] | | | | | ([facility]) Type | Phone: | [address] | | | | | 2 diabetes | [phone] | | | | | | mellitus | Fax: | | | | | | without | [phone] | | | | | | complication | | | | | | | , with | | | | | | | long-term | | | | | | | current use | | | | | | | of insulin | | | | | | | ([facility]) | | | +--------+ + + + [...] | | | [address] | 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) | | | | [place], [place] | | | | | | [address] | | | | | | [phone] | | | +--------+---------+ + + + [...] Follow-Up Patient referred by: Randell Franks MD [address] [place] [address] Documented time of visit: 2:36pm to 2:49 (13 minutes awge-ij-wvin with patient) Surgery: Gastric Bypass Date of [...] Medications since surgery: oral - appt with machine maintenance technician on the 9th Testing blood glucose: 92 [...] beef, cream of wheat, cream of mushroom, vatican citizen yogurt Fluid choices: water Supplementation: Flinstones, [...] multivitamin & mineral (with iron) supplement, 2/day -8889-6702 mg calcium citrate with vitamin D/day (take in divided doses, not within 2 hour s of multivitamin or iron supplement) -500 mcg/day sublingual B12 supplement (or monthly injections) Continued to reinforce importance of mindful eating. Continue to increase physical activity. Follow up in 3 months or earlier as needed. Tejas Cevallos RD, LD Pager # [phone] signed by Tejas Cevallos RD at 05/27/2018 [...] | | | | | [place], [place] | | | | | | [address] | | | | | | [phone] | | | | | | | [...] | + +--------+ + + + | [facility] M[facility] RE-ASSESSMNT | Routin | 05/27/2018 | [...]
--- OUTSIDE RECORDS SUMMARY | ~2019-05-20 | XMS | Encounter Summary ---
Demographics + + + | Address | [address] | | | [place] [address] | + + + | Home Phone [...] [place], [place] | | | | | [address] | | + + + + + | Ellie Vang | ECON | Unknown | | + + + + + Care Team Providers + +------+ + | Care Surplus Property Disposal Agent Name | Role | Phone | [...] | | | | | essential | [address] | [address] | | | | | hypertension | [address], | Ave | | | | | Type II or | [address] | [place], [place] | | | | | unspecified | [place], [place] | [address] | | | | | type | [address] | Phone: | | | | | diabetes | Phone: | [phone] | | | | | mellitus | [phone] | Fax: | | | | | without | Fax: | [phone] | | | | | mention of | [phone] | | | | | | complication [...] | 2013 | Visit | Preventive at [facility] | [address] | mellitus (HCC) | | | | [address] | [place], [place] | (Primary Dx) | | | | Mailcode: CH9A | [address] | | | | | [facility] | [phone] | | | | | and [place], | | | | | | Building [address] | | | | | | [place], [place] | | | | | | [address] | | | | | | [phone] | | | +--------+---------+ + + + [...] Wi ll discuss with Dr. Brian and pressure controller her best strategies for meeting weight loss [...] | | 2019 | Visit | | [address] | | | | | | [place], [place] | | | | | | [address] | | | | | | [phone] | | | | | | | [...] [facility] | [address] | [place] [address] | | | SERVICES, SPECIAL | PARK [...]
--- OUTSIDE RECORDS SUMMARY | ~2019-05-20 | XMS | Encounter Summary ---
Demographics + + + | Address | [address] | | | [place] [address] | + + + | Home Phone [...] + | Katalina Padilla | ECON | [address] | | | | | [place], [place] | | | | | [address] | | + + + + + | Ellie Vang | ECON | Unknown | | + + + + + Care Team Providers + +------+ + | Care Musical Therapist Name | Role | Phone | [...] | 2018 | Visit | Preventive at [facility] | [address] | mellitus without | | | | [address] | [place], [place] | complication, with | | | | Mailcode: [facility] | [address] | long-term current | | | | [facility] | [phone] | use of insulin ([facility]) | | | | and Healing, | | (Primary Dx); | | | | Building [address] | | Chronic right-sided | | | | [place], [place] | | heart failure (HCC) | | | | [address] | | | | | | [phone] | | | +--------+---------+ + + + [...] management of her heart failure by her Radio Talk Show Host 3) Check A1c, lipids 4) Await bariatric surgery in February 2018 5) Continue phentermine 37.5 mg daily 6) Continue wound care, non-pressure ambulation of right foot wound 7) Follow-up 4-6 months In the interim, the patient underwent bariatric surgery and was discharged [facility] on 03[facility]. Today, the patient reports [...] 06/23 - She is working with the chemical etching processor in her office - She is taking [...] tongue once daily., Disp: , Rfl: CALCIUM CRB&TWV-R9-XZM17-GENIS ORAL, Take 2 tablets by mouth two [...] 3.19 11/28/2016 Lab Results Component Value Date [id number] 88.6 05/27/2018 Lab Results Component Value Date [...] weight of 320lbs. Plan to work with chemical etching processor from bariatric surgery, identify etio logy of [...] is currently being managed well by her Radio Talk Show Host with diuretics and mainte nance of her [...] Gissell Clements MD Fellow, Cardiovascular Medicine Pager [phone] signed by Gissell Clements MD at 06/04/2018 [...] | | | | | [place], [place] | | | | | | [address] | | | | | | [phone] | | | | | | | [...]
--- OUTSIDE RECORDS SUMMARY | ~2019-05-20 | XMS | Encounter Summary ---
Demographics + + + | Address | [address] | | | [place] [address] | + + + | Home Phone [...] [place], [place] | | | | | [address] | | + + + + + | Ellie Vang | ECON | Unknown | | + + + + + Care Team Providers + +------+ + | Care Supervisor Char House Name | Role | Phone | + +------+ + | Kenyatta Cardenas MD | PCP | | + +------+ + Encounter Details +--------+ + + + + | Date | Type | Department | Care Team | Description | +--------+ + + + + | 03/02/ | Test Fixture Designer | Digestive Health | Keren Allen, | | | 2019 | | Center at [facility] [address] | AGACNP [address] | | | | | [address] | [place] [facility] [place] | | | | | Mailcode: [place] | [address] | | | | | for Health and | | | | | | [facility] 2 | | | | | | [place], [place] | | | | | | [address] | | | | | | | [...] [place] | | | | | | [address] | | | | | | [phone] | | | | | | | | +--------+ + + + + | 07/08/ | Procedure | Surgery | | | | 2018 | Pass | | | | +--------+ + + + + documented as of this encounter Visit Diagnoses Not on filedocumented in this encounter"
--- OUTSIDE RECORDS SUMMARY | ~2019-05-20 | XMS | Encounter Summary ---
Demographics + + + | Address | [address] | | | [place] [address] | + + + | Home Phone [...] + | Katalina Padilla | ECON | [address] | | | | | [place], [place] | | | | | [address] | | + + + + + | Ellie Vang | ECON | Unknown | | + + + + + Care Team Providers + +------+ + | Care Soup Mixer Name | Role | Phone | [...] | BROCK Roldan | | | with CORPORATE COMMUNICATIONS MANAGER | | hypertension | [address] | | | | | Right | [address] | [address] | | | | | heart | [place], [place] | [place], | | | | | failure | [address] | [place] | | | | | ([facility]) Type | Phone: | [address] | | | | | 2 diabetes | [phone] | | | | | | mellitus | Fax: | | | | | | without | [phone] | | | | | | complication | | | | | | | , with | | | | | | | long-term | | | | | | | current use | | | | | | | of insulin | | | | | | | ([facility]) | | | +--------+ + + + + + Encounter Details +--------+---------+ + + + | Date | Type | Department | Care Team | Description | +--------+---------+ + + + | 02/02/ | Office | Digestive Health | [address] | Morbid obesity with | | 2017 | Visit | Center at [facility] [address] | [address] | BMI of 70 and over, | | | | [address] | Lesly Gutiérrez [place], | adult ([facility]) (Primary | | | | Mailcode: Center | [place] [address] | Dx); Type 2 | | | | for Health and |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 | | | | Healing, [address] | | without | | | | [place], [place] | | complication, with | | | | [address] | | long-term current | | | | [phone] | | use of insulin | | | | | | ([facility]); Chronic | | | | | | diastolic heart | | | | | | failure ([facility]) | +--------+---------+ + + + Social [...] of Visit: 10:03 to 10:30 (27 minutes dgtu-[id number]-[id number] with patient) (1 hour ap point not [...] eat like she should, tries to eat service clerk things and this does not help. Food [...] post-surgery diet progression. 4. Call or send Safello message to dietitian with any questions. Contact information was provided. Follow up with dietitian prior to surgery (take 2 Weight management classes as part of 6 mo [facility] supervised diet). [address], [facility], LD [facility] Bariatrics [phone] documented in this enco unter Plan of [...] | | 2018 | Visit | | [address] | | | | | | [place], [place] | | | | | | [address] | | | | | | [phone] | | | | | | | [...] | + +--------+ + + + | MI MNT RE-ASSESSMNT | Routin | 02/02/2017 | Morbid obesity | | | X15MIN | e | 12:04 PM | with BMI of 70 and | | | | | PDT | over, adult ([facility]) | | | | | | Type 2 diabetes | | | | | | mellitus without | | | | | | complication, with | | | | | | long-term current | | | | | | use of insulin ([facility]) | | | | | | Chronic diastolic | | | | | | heart failure ([facility]) | | + +--------+ + + [...]
--- OUTSIDE RECORDS SUMMARY | ~2019-05-20 | XMS | Encounter Summary ---
Demographics + + + | Address | [address] | | | [place] [address] | + + + | Home Phone [...] [place], [place] | | | | | [address] | | + + + + + | Ellie Vang | ECON | Unknown | | + + + + + Care Team Providers + +------+ + | Care Nursing Unit Coordinator Name | Role | Phone | [...] 2014 | | Center at [facility] [address] | [address] | (11/03 and 11/06 phone | | | | [address] | Lesly Gutiérrez [place], | calls) | | | | Mailcode: [place] | [place] [address] | | | | | for Health and | | | | | | [facility], [facility] 2 | | | | | | [place], [place] | | | | | | [address] | | | | | | [phone] | | | +--------+ + + + [...] | | | | | [place], [place] | | | | | | [address] | | | | | | [phone] | | | | | | | | +--------+ + + + + | 07/08/ | Procedure | Surgery | | | | 2018 | Pass | | | | +--------+ + + + + documented as of this encounter Visit Diagnoses Not on filedocumented in this encounter"
--- OUTSIDE RECORDS SUMMARY | ~2019-05-20 | XMS | Encounter Summary ---
Demographics + + + | Address | [address] | | | [place] [address] | + + + | Home Phone [...] + | Katalina Padilla | ECON | [address] | | | | | [place], [place] | | | | | [address] | | + + + + + | Ellie Vang | ECON | Unknown | | + + + + + Care Team Providers + +------+ + | Care Booking Prizer Name | Role | Phone | + [...] [address] | | | | | (HCC) | [address] | [address] | | | | | Procedures | [place], [place] | [place], [place] | | | | | CONSULT TO | [address] | [address] | | | | | CAR | Phone: | Phone: | | | | | PREVENTATIVE | [phone] | [phone] | | | | | [facility] - | Fax: | Fax: | | | | | LIPIDS | [phone] | [phone] | +--------+--------+ + + + + Encounter Details +--------+---------+ + + + | Date | Type | Department | Care Team | Description | +--------+---------+ + + + | 09/11/ | Office | Cardiology | Olga Lidia Montanez, | 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 | Visit | Preventive at [facility] | [address] | BMI of 70 and over, | | | | [address] | [address] | adult (HCC) (Primary | | | | Mailcode: CH9A | [place], [place] | Dx) | | | | [facility] | [address] | | | | | and Healing, | | | | | | Building [address] | | | | | | [place], [place] | | | | | | [address] | | | | | | [phone] | | | +--------+---------+ + + + [...] appointment, Dietitian: Olga Lidia Montanez RD, LD [facility] Bariatric department (to reschedule classes): [phone] Goals: 1. Try to stop buying Pop-Tarts 2. Replace afternoon snack (think of this as lunch) with vegetables or fruit -cucumbers, carrots, broccoli, cauliflower, etc. -try making ranch dip w/ nonfat plain yogurt (regular or Swedish) (or mix yogurt w/ salsa; o r chipotle hot sauce & shishmaref ira juice) 3. Snack ideas: -fruit -vegetables (with hummus or yogurt dip) -Swedish yogurt - light (have w/ fruit if you're still hungry) -applesauce - unsweetened, w/ lowfat string cheese -1/4 cup nuts -lowfat string cheese -low-fat or non-fat cottage cheese w/ tomatoes 4. Aim for 60-80 grams of protein a day (see list) 5. Add Swedish yogurt to breakfast Heart Protection Kitchen from [facility] Healthy eating made simple. What: FREE heart-healthy cooking demonstrations led by guest non profit job titles and nutrition experts. Samples are provided! Where: [facility] ([facility]), September, 2nd floor teaching kitchen When: All classes from 11:00am-12:00pm ? October 12 (led by Dr. Paulino Carreno MD) Please contact Keerthi Boyer at [phone] or email at [email or web address] for information on upcoming classes and to register. Space is limited - reserve your seat today! Want more info on what to eat? Watch the [employer] video, "Healthy Eating 101," at [email or web address]/watch?[email or web address] documented in this encounter Progress Notes Olga Lidia Montanez RD - 09/11/2017 2:30 PM PSTFormatting of this note might be different fro m the original. [facility] Center of Preventive Cardiology, Nutrition Consultation Referring provider: Dr. Randell Franks MD Referring diagnosis: obesity, HF, DM2 Visit type: Initial; txnh-wn-gxbt visit with patient Questions/Information desired today: Hoping [...] restarting the bariatric program; getting PT in [place] & has nutrition classes scheduled. Still has bariatric notebooks at home. Per [employer]ioz R&Dbarron message from Dr. Pandey 09/10/17: "Just tell [...] currently. Typical food intake: 24-hr recall (at GF's house) Up at 7am B (7:30am): Frosted [...] milk (2% at 's) (8-10 oz/d) At mom's house: B: cereal (< 170 kcal) & 1% milk; occ w/ applesauce or Swedish yogurt No L S (3pm): pop-tart or [...] too expensive. Occ fruit bowls from [facility]. Vegetables: every day w/ dinner [...] in PT 2x/week for bariatric program (in [place]) UBW: 385-391 lbs Max weight: 529 lbs Weight history: lost from 495 lbs to 383 lbs in 6588-1381 on Atkins diet ANTHROPOMETRICS: Height: Ht Readings from Last 1 Encounters: 09/11/17 1.549 m (5' 1") Weight: Wt Readings from Last 1 Encounters: 09/11/17 176.5 kg (389 lb 3.2 oz) 11/28/16 179.443 kg (395 lb 10 oz) Body mass index is 73.54 kg/m. Weight change management specialist the past year: 6 lb wt loss [...] weight loss; anticipate excellent compliance in the [facility] surgery program. Currently eating energy-dense/nurient-poor foods [...] of protein a day - add light Swedish yogurt to breakfast; include lean protein with PM snack/lunch 3. D/c carbonated beverages (e.g., diet soda); replace with water, Crystal Light, diet deca f tea, or other calorie-free still beverage Contact information was provided; call or send BucketFeet message to dietitian with any questi ons. [...] | | | | | [place], [place] | | | | | | [address] | | | | | | [phone] | | | | | | | [...]
--- OUTSIDE RECORDS SUMMARY | ~2019-05-20 | XMS | Encounter Summary ---
Demographics + + + | Address | [address] | | | [place] [address] | + + + | Home Phone [...] + | Katalina Padilla | ECON | [address] | | | | | [place], [place] | | | | | [address] | | + + + + + | Ellie Vang | ECON | Unknown | | + + + + + Care Team Providers + +------+ + | Care Medical Office Technology Instructor Name | Role | Phone | + +------+ + | Fadi Goodrich DO | PCP | | + +------+ + Encounter Details +--------+------+ + + + | Date | Type | Department | Care Team | Description | +--------+------+ + + + | 06/16/ | Lab | Laboratory at [facility] | | Morbid obesity with | | 2012 | | [address] | | BMI of 70 and over, | | | | [place], [place] | | adult (HCC); Vitamin | | | | [address] | | D deficiency | | | | [phone] | | disease; | | | | [...] | 2019 | Visit | | [address] | | | | | | [place], [place] | | | | | | [address] | | | | | | [phone] | | | | | | | [...] | | | PST | over, adult ([facility]) | results section. | | | [...] at | | | | | | [email or web address] Test | | | | | | developed and | | | | | | characteristics | | | | | | determined by | | | | | | [employer]. See | | | | | | Compliance Statement B: | | | | | | [email or web address] | | | | | | by [facility],[address] | | | | | | [address], [facility],[place] | | | | | | [address] | | | | | | [phone]. | | | | | | pastora, [...] at | | | | | | [employer] Test | | | | | | developed and | | | | | | characteristics | | | | | | determined by | | | | | | [employer]. See | | | | | | Compliance Statement B: | | | | | | [employer]/CS | | | | + + + + + + + + | Specimen | + + | Blood - Blood | + + + + + + + | Performing | Address | City/State/[facility] | Phone Number | | Organization | | | | + + + + + | [facility] | [address] | [place], [place] | | | [facility] | | [address] | | + + + + + [...]
--- OUTSIDE RECORDS SUMMARY | ~2019-05-20 | XMS | Encounter Summary ---
Demographics + + + | Address | [address] | | | [place] [address] | + + + | Home Phone [...] [place], [place] | | | | | [address] | | + + + + + | Ellie Vang | ECON | Unknown | | + + + + + Care Team Providers + +------+ + | Care Sleep Technologist Name | Role | Phone | [...] [address] | | | | | Mailcode: [place] | [place], [place] | | | | | [facility] and | [address] | | | | | [facility] 2 | [phone] | | | | | [place], [place] | | | | | | [address] | | | | | | [phone] | | | +--------+ + + + [...] | | 2018 | Visit | | [address] | | | | | | [place], [place] | | | | | | [address] | | | | | | [phone] | | | | | | | | +--------+ + + + + | 07/08/ | Procedure | Surgery | | | | 2018 | Pass | | | | +--------+ + + + + documented as of this encounter Visit Diagnoses Not on filedocumented in this encounter"
--- OUTSIDE RECORDS SUMMARY | ~2019-05-20 | XMS | Encounter Summary ---
Demographics + + + | Address | [address] | | | [place] [address] | + + + | Home Phone [...] [place], [place] | | | | | [address] | | + + + + + | Ellie Vang | ECON | Unknown | | + + + + + Care Team Providers + +------+ + | Care Slasher Tender Helper Name | Role | Phone | [...] Diabetes & | Morbid | Kathy M, MOBILITY MANAGER | [address] | | | | Metabolism | obesity | [address] | | | | | ([facility]) | [address], | [address] | | | | | Procedures | [address] | Physician's | | | | | CONSULT TO | [place], [place] | Pavilion | | | | | ENDO | [address] | Physician's | | | | | [address] | Phone: | Pavilion | | | | | | [phone] | [place], [place] | | | | | | Fax: | [address] | | | | | | [phone] | Phone: | | | | | | | [phone] | | | | | | | Fax: | | | | | | | [phone] | +--------+--------+ + + + + Encounter [...] | | Center at Physicians | [place], [place] | (Primary Dx); Morbid | | | | Pav[address] | [address] | obesity (HCC) | | | | [address] | [phone] | | | | | Physician's | | | | | | Pavilion | | | | | | Physician's Pavilion | | | | | | [place], [place] | | | | | | [address] | | | | | | [phone] | | | +--------+---------+ + + + [...] | | 2018 | Visit | | [address] | | | | | | [place], [place] | | | | | | [address] | | | | | | [phone] | | | | | | | [...]
--- OUTSIDE RECORDS SUMMARY | ~2019-05-20 | XMS | Encounter Summary ---
Demographics + + + | Address | [address] | | | [place] [address] | + + + | Home Phone [...] [place], [place] | | | | | [address] | | + + + + + | Ellie Vang | ECON | Unknown | | + + + + + Care Team Providers + +------+ + | Care Vehicle Operator Technician Name | Role | Phone | [...] | [place], | | | | | [place] EST | Fadi Person DO | MD Randell | | | | | PATIENT | [address] | [address] | | | | | [address] | [address] | Ave | | | | | | [place], | [place], [place] | | | | | | [place] [address] | [address] | | | | | | Phone: | Phone: | | | | | | [phone] | [phone] | | | | | | Fax: | Fax: | | | | | | [phone] | [phone] | +--------+--------+ + + + + Encounter Details +--------+---------+ + + + | Date | Type | Department | Care Team | Description | +--------+---------+ + + + | 04/03/ | Office | Cardiology | Randell Franks, | Morbid obesity (HCC) | | 2015 | Visit | Preventive at [facility] | [address] | (Primary Dx); Type | | | | [address] | Ave [place], [place] | 2 diabetes mellitus | | | | Mailcode: CH9A | [address] | without complication | | | | [facility] | [phone] | ([facility]) | | | | and [address], | | | | | | Building [address] | | | | | | [place], [place] | | | | | | [address] | | | | | | [phone] | | | +--------+---------+ + + + [...] 500 mg by mouth once daily. CALCIUM [id number]-GENIS ORAL Take 1 tablet by mouth two [...] documented, but if we use her last [facility] weight of 410 lbs, this would put her at 360 lbs before consideration for RYGBP. She is working with the bariatric surgery cement breaker to try to achieve this. She states [...] visit Diet: healthy, working with Bar Surg cement breaker Exercise: "I walk everywhere." ROS: No CP, [...] | | | | | [place], [place] | | | | | | [address] | | | | | | [phone] | | | | | | | [...]
--- OUTSIDE RECORDS SUMMARY | ~2019-05-20 | XMS | Encounter Summary ---
Demographics + + + | Address | [address] | | | [place] [address] | + + + | Home Phone [...] [place], [place] | | | | | [address] | | + + + + + | Ellie Vang | ECON | Unknown | | + + + + + Care Team Providers + +------+ + | Care Milk And Cream Grader Name | Role | Phone | [...] | LAPAROSCOPIC | | 2013 | | [facility] | [address] | CHOLECYSTECOMY WITH | | | | Admitting Desk | Clarence Gutiérrez [place], | INTRA-OP | | | | Located on the | [place] [address] | CHOLANGIOGRAM | | | | floor [address] | [phone] | | | | | [address] | | | | | | [place], [place] | | | | | | [address] | | | +--------+---------+ + + + [...] the resident s note. PRADIP STARR MD [facility] [address] [facility] [place] [address] orrest, Maryam Yu MD - 1:05 PM PDT [facility] DEPARTMENT OF SURGERY EMERGENCY GENERAL SURGERY Division of Trauma and Critical Care INPATIENT PROVIDER DISCHARGE SUMMARY Note Date: 02/08/2014 Admission Date: 02/07/2014 DYLAN ROMERO, Discharge Date: 08 Feb 2014 PCP: Fadi Goodrich DO Attending Physician: Milana Landaverde MD Author: MARYAM RHODES MD HPI: Dylan Romero is a 38 y.o. Female with morbid obesity, bipolar disorder and Type 2 DM who presented to the [facility] ED ([place], [place]) on 02/06/14, with a week hi story of RUQ abdominal pain that radiates to her back. There, she was found to have leukocyt osis and multiple tiny, mobile stones, + sonographic Peterson's sign on abdominal ultrasound, concerning for acute cholecystitis. She was givenIV antibiotics (cipro, flagyl) and pain med s, then transferred to [facility] by [facility] for further care. Ms. Romero endorsed [...] up with Trauma Emergency General Surgery at [facility] In 4 weeks. (follow up in 2-4 weeks ) Contact information [address] [facility] Mailcode: L223a [facility] [place] [address] Thank you for the [...] the resident s note. PRADIP STARR MD [facility] [address] [place] [phone] orrest, Maryam Yu MD - 5:17 AM PDT [facility] [place] DEPARTMENT OF SURGERY EMERGENCY GENERAL SURGERY Division [...] tolerated MARYAM RHODES MD PGY-1, General Surgery 34[address] pager number [facility] [place] A [address] [place] [facility] [place] [address] documented in this encoun ter Plan of [...] | | 2018 | Visit | | [address] | | | | | | [place], [place] | | | | | | [address] | | | | | | [phone] | | | | | | | [...] MARQUAM | [address] | [place], [place] | | | JUSTINE DAWN OF CARE | [address] | [address] | | | TESTS | | | [...] YAKOVAM | [address] | [place], [place] | | | [place] POINT OF CARE | [address] | [address] | | | TESTS | | | [...] AMES | [address] | [place], [place] | | | JUSTINE DAWN OF JAKY | [address] | [address] | | | TESTS | | | [...] MARQUAM | [address] | [place], [place] | | | JUSTINE DAWN OF CARE | [address] | [address] | | | TESTS | | | [...] LABORATORY | [address] | [place] [address] | | | SERVICES, | [address] [...] | [facility] | [address] | [place] [address] | | | SERVICES, | [address] [...] MARQUAM | [address] | [place], [place] | | | [place] POINT OF CARE | [facility] | [address] | | | TESTS | | | [...] | + + + + + | [facility] LABORATORY | [address] | [place] [address] | | | SERVICES, CORE | [address] [...] | [facility] | [address] | [place] [address] | | | SERVICES, CORE | [address] [...] | + + + + + | [facility] [email or web address] | [address] | [place] [address] | | | SERVICES, CORE | [address] | | | + + + + + MAGNESIUM, PLASMA (02/07/2014 6:32 AM PDT) + +---------+ + + + | Component | Value | Ref Range | Performed | Pathologist | | | | | At | Signature | + +---------+ + + + | MAGNESIUM,P | 1.6 (L) | 1.8 - 2.5 mg/dL | [facility] | | | LASMA | [...] | + + + + + | [facility] LABORATORY | [address] | [place] [address] | | | SERVICES, CORE | [address] [...] | | | LABORATORY | | | [place]YAN | | | SERVICES, | | | [...] | [facility] | [address] | [place] [address] | | | SERVICES, CORE | [address] [...] MARQUAM | [address] | [place], [place] | | | JUSTINE DAWN OF CARE | [address] | [address] | | | TESTS | | | [...] pattern. | | | | | | Instructor Traffic Safety | | | | | | sections [...] Ph.D.PathologistElectron | | | | | | ically Signed 02/10/2014 | | | | | | 4:28PM | | | | + + + + + + + + | Specimen | + + | | + + + + + + + | Performing | Address | City/State/Zipcode | Phone Number | | Organization | | | | + + + + + | [facility] | [address] | [place] [address] | | | PATHOLOGY | [address] [...]
--- OUTSIDE RECORDS SUMMARY | ~2019-05-20 | XMS | Encounter Summary ---
Demographics + + + | Address | [address] | | | [place] [address] | + + + | Home Phone [...] + | Katalina Padilla | ECON | [address] | | | | | [place], [place] | | | | | [address] | | + + + + + | Ellie Vang | ECON | Unknown | | + + + + + Care Team Providers + +------+ + | Care Supervisor Rolling Room Name | Role | Phone | + [...] | | 2 diabetes | JEAN, | [place], [place] | | | | | mellitus | [place] [address] | [address] | | | | | without | Phone: | Phone: | | | | | complication | [phone] | [phone] | | | | | (HCC) | Fax: | Fax: | | | | | Procedures | [phone] | [phone] | | | | | UT EST | | | | | | [...] | 2018 | Visit | Preventive at [facility] | [address] | mellitus without | | | | [address] | Ave [place], [place] | complication, with | | | | Mailcode: CH9A | [address] | long-term current | | | | [facility] | [phone] | use of insulin (HCC) | | | | and Healing, | | (Primary Dx); | | | | Building 1 | | Morbid obesity with | | | | [place], [place] | | BMI of 70 and over, | | | | [address] | | adult (HCC) | | | | [phone] | | | +--------+---------+ + + + [...] 04/14/2013 Priority: 3 Hypoventilation associated with obesity ([facility]) 06/16/2013 Priority: 4 AMARA (obstructive sleep apnea) 04/14/2013 Priority: 4 Overview Note: Cannot tolerate CPAP Severe Morbid obesity ([facility]), BMI 88 11/12/2012 Priority: 4 Overview Note: Lifetime max: 495 lbs Phentermine started Type 2 diabetes mellitus ([facility]) 04/14/2013 Priority: 5 Iron deficiency anemia due to chronic blood loss 11/11/2015 Priority: 6 Overview Note: Ferritin 18 on 10/2015 Hypoalbuminemia (no proteinuria, need to rule out synthetic, nutrition, loss) 6 Priority: 6 Hypothyroidism 08/28/2014 Priority: 8 Morbid obesity with BMI of 70 and over, adult ([facility]) 02/02/2017 Chronic diastolic heart failure (HCC) 02/02/2017 Immobility 02/02/2017 Severe muscle deconditioning 02/02/2017 Personal history of DVT (deep vein thrombosis) 02/02/2017 History of pulmonary embolism 02/02/2017 AMARA treated with BiPAP 02/02/2017 Benign essential HTN 02/02/2017 Diabetes mellitus type 2 without retinopathy ([facility]) 02/02/2017 Hyperlipidemia 02/02/2017 Ventral hernia without [...] exertion) 11/06/2015 Diabetes mellitus with insulin therapy ([facility]) 12/27/2014 Abdominal pain 02/07/2014 Migraine headache 12/05/2013 [...] 1 tablet by mouth once daily CALCIUM CRB&NBA-M6-LQT04-GENIS ORAL Take 2 tablets by mouth two [...] jeart failure is manag ed by her press manager and she was seen by the bariatric surgery group and is now back on tr [facility] for gastric bypass in the upcoming [...] is currently being managed well by her Military Technology Specialist with diuretics and main tenance of her [...] management of her heart failure by her Military Technology Specialist 3) Check A1c, lipids 4) Await bariatric [...] [place] | | | | | | [address] | | | | | | [phone] | | | | | | | [...] [facility] | [address] | [place], [place] | | | SERVICES, LIPID | [address] | [address] | | + + + + + [...] | [facility] | | considered for monitoring intermission coordinator glycemic control in patients with: | LABORATORY [...] | + + + + + | [facility] | [address] | [place] [address] | | | SERVICES, SPECIAL | [address] | | | | IMM + COAG | | | | + + + + + documented in this encounter Visit Diagnoses + + | Diagnosis | + + | Type 2 diabetes mellitus without complication, with long-term current use of insulin | | ([facility]) - Primary | + + | Morbid obesity with BMI of 70 and over, adult ([facility]) | + + documented in this encounter
--- OUTSIDE RECORDS SUMMARY | ~2019-05-20 | XMS | Encounter Summary ---
Demographics + + + | Address | [address] | | | [place] [address] | + + + | Home Phone [...] + | Katalina Padilla | ECON | [address] | | | | | [place], [place] | | | | | [address] | | + + + + + | Ellie Vang | ECON | Unknown | | + + + + + Care Team Providers + +------+ + | Care Grinding Wheel Operator Name | Role | Phone | + +------+ + | Fadi Goodrich DO | PCP | | + +------+ + Encounter Details +--------+ + + + + | Date | Type | Department | Care Team | Description | +--------+ + + + + | 12/29/ | Abstract | Digestive Health | Hernandez Brian, | | | 2012 | | Center at [facility] [address] | MD [address] | | | | | [address] | [facility] | | | | | Mailcode: Center | [place], [place] | | | | | [facility] and | [address] | | | | | [facility] 2 | [phone] | | | | | [place], [place] | | | | | | [address] | | | | | | [phone] | | | +--------+ + + + [...] | | 2018 | Visit | | [address] | | | | | | [place], [place] | | | | | | [address] | | | | | | [phone] | | | | | | | | +--------+ + + + + | 07/08/ | Procedure | Surgery | | | | 2018 | Pass | | | | +--------+ + + + + documented as of this encounter Visit Diagnoses Not on filedocumented in this encounter"
--- OUTSIDE RECORDS SUMMARY | ~2019-05-20 | XMS | Encounter Summary ---
Demographics + + + | Address | [address] | | | [place] [address] | + + + | Home Phone [...] + | Katalina Padilla | ECON | [address] | | | | | [place], [place] | | | | | [address] | | + + + + + | Ellie Vang | ECON | Unknown | | + + + + + Care Team Providers + +------+ + | Care Bridge Inspector Name | Role | Phone | [...] | 2013 | | Center at [facility] [address] | [place]ER [place]T [place]ER [address] | | | | | [address] | [facility] [address] | | | | | Mailcode: Center | [place], [place] | | | | | for Health and | [address] | | | | | [facility] 2 | [phone] | | | | | [place], [place] | | | | | | [address] | | | | | | [phone] | | | +--------+ + + + [...] | | | | | [place], [place] | | | | | | [address] | | | | | | [phone] | | | | | | | | +--------+ + + + + | 07/08/ | Procedure | Surgery | | | | 2018 | Pass | | | | +--------+ + + + + documented as of this encounter Visit Diagnoses Not on filedocumented in this encounter"
--- OUTSIDE RECORDS SUMMARY | ~2019-05-20 | XMS | Encounter Summary ---
Demographics + + + | Address | [address] | | | [place] [address] | + + + | Home Phone [...] + | Katalina Padilla | ECON | [address] | | | | | [place], [place] | | | | | [address] | | + + + + + | Ellie Vang | ECON | Unknown | | + + + + + Care Team Providers + +------+ + | Care Coater Operator Name | Role | Phone | [...] | | [address] | Ave [place], [place] | (Primary Dx); | | | | Mailcode: Center | [address] | Ventral hernia | | | | for Health and | [phone] | without obstruction | | | | Healing, Building 2 | | or gangrene; Mixed | | | | [place], [place] | | hyperlipidemia; | | | | [address] | | 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[phone] | | type 2 without | | [...] is doing Refill oxycodone Rx +Take acid spanish moss picker for first 3 mos, then wean off [...] to POC and [facility] if any issues. documented in this [...] times daily. , Disp: , Rfl: CALCIUM CRB&RIT-W0-IPD00-GENIS ORAL, Take 2 tablets by mouth two [...] History Narrative Updated 11/09/15 She lives in [place] with her mother and her sister (also her caregiver) lives in an apa rtment/duplex below. She has 2 grandchildren (age 4 and 7) who live with her daughter and son-in-law Her boyfriend lives in [place] HFpEF, DM2, HTN, Sleep Apnea (unable [...] program here and refer her to our employment training specialist who also has expertise in [...] Increase torsemide to pre-surgical dose +Take acid spanish moss picker for first 3 mos, then wean off [...] she will make an appointment with her Parking Ramp Attendant to discuss insulin dosing and CBGs 10. [...] to POC and will call or [facility] ss[facility] if any issues. Start time 15:35, end time 15:55. I spent a total of 20 minutes face to face with this pat ient. Over 50% of visit was in counseling. ~ 10 minutes of additional time spent reviewing chart prior to visit and documenting after this visit. Ronna Clarke DNP ACNP MEDICAL FRONT DESK COORDINATOR Bariatric Surgery Nurse Practitioner [facility] | [address] | [place] | [address] | documented in this e ncounter Plan [...] | | 2018 | Visit | | [address] | | | | | | [place], [place] | | | | | | [address] | | | | | | [phone] | | | | | | | [...] | | cells No organisms seen | [place] | + + + + + + + + | Performing | Address | City/State/Zipcode | Phone Number | | Organization | | | | + + + + + | [facility] | [address] | [place] [address] | | | [facility] | | | | + + + [...]
--- OUTSIDE RECORDS SUMMARY | ~2019-05-20 | XMS | Encounter Summary ---
Demographics + + + | Address | [address] | | | [place] [address] | + + + | Home Phone [...] [place], [place] | | | | | [address] | | + + + + + | Ellie Vang | ECON | Unknown | | + + + + + Care Team Providers + +------+ + | Care Vocational Examiner Name | Role | Phone | [...] | Pain | Diagnoses | Analisa Georges Billing Adjudicator Psych | | | | Management | Morbid | DANIELLE BrunerP | [address] | | | | | obesity with | [address] | | | | | BMI of [address] | [address] | Mailcode: | | | | | and over, | [place], [place] | [facility]15[facility] Center | | | | | adult (HCC) | [address] | for Health | | | | | Procedures | Phone: | and Healing, | | | | | CONSULT TO | [phone] | Building 1, | | | | | PAIN | Fax: | 15th Floor | | | | | MANAGEMENT | [phone] | [place], [place] | | | | | [place] | | [address] | | | | | PSYCHIATRIC | | Phone: | | | | | DIAGNOSTIC | | [phone] | | | | | EVAL, NO MED | | Fax: | | | | | [address] | | [phone] | | | | | PSYCH TSTNG [...] | [facility] | | | with [facility]IL[facility] | | hypertension | [address] | [address] | | | | | Right | [address] | [address] | | | | | heart | [place], [place] | Mailcode: | | | | | failure | [address] | Center for | | | | | ([facility]) Type | Phone: | Health and | | | | | 2 diabetes | [phone] | Healing, | | | | | mellitus | Fax: | Building 2 | | | | | without | [phone] | [place], [place] | | | | | complication | | [address] | | | | | , with | | Phone: | | | | | long-term | | [phone] | | | | | current use | | Fax: | | | | | of insulin | | [phone] | | | | | ([facility] | | [address] | Ave [place], [place] | adult ([facility]) (Primary | | | | Mailcode: Center | [address] | Dx); Chronic | | | | for Health and | | diastolic heart | | | | Healing, Building 2 | | failure ([facility]); | | | | [place], [place] | | Immobility; Severe | | | | [address] | | muscle | | | | [...] | | ([facility]); | | [...] encounter Patient Instructions Patient Instructions Shereen Georges, [facility] - 02/02/2017 9:00 AM PDTPlan: The [...] to your private appointme nt with the continuous improvement engineer. These classes will be scheduled apporoximately 1 month apart to allow time for you to put the teaching into action. Please call [phone] + Labs needed: Pre op: drug screen [...] are done + EKG: Please Have your dipper clock and watch hands do the eval and send it to us + Pre-op Psychological Evaluation: Your referral is at [facility], The Pain Management Office will call [...] be safely completed. + Sign up for Aunt Bertha so that we can communicate easily back and forth Once the above list is completed and copies have been received by our office, we will submi t for insurance authorization then schedule with the surgeon. KAIN De Dios DNP, TECHNOLOGY APPLICATIONS TEACHER Nurse Practitioner for Bariatric Surgery [facility] | [address] | [place] | [address] | documented in this encounter Progress Notes Shereen Georges ACNP - 02/02/2017 9:00 AM PDTFormatting of this note might be different f rom the original. BARIATRIC INITIAL VISIT Provider: Shereen Pinto DNP, KAIN, TECHNOLOGY APPLICATIONS TEACHER Referring Provider: Fadi Goodrich DO Reason for [...] t loss. Consults: Cardiology: Dr. Edson Livingston [facility] Web Site Project Manager: Nickie : [facility] Paula But comes to magen Clinical Operations Manager at [facility]: Dr. Zhong for weight loss medication Evangelical or cultural reason you would refuse blood [...] once daily., Disp : , Rfl: CALCIUM CRB&EHV-L2-JKK66-GENIS ORAL, Take 2 tablets by mouth two [...] rhinitis Anemia Anxiety Bipolar disorder ([facility]) Chronic wound infection of abdomen [...] of breath Staphylococcal infection Stroke ([facility]) TIA (transient ischemic attack) due [...] Andie Brian Incisional hernia repair 03/01/2015 [facility]/ Dr. Cantu. Primary fascial closure and [...] History Narrative Updated 11/09/15 She lives in [place] with her mother and her sister (also her caregiver) lives in an [facility] below. She has 2 grandchildren (age 4 and 7) who live with her daughter and son-in-law Her boyfriend lives in [place] Family History Problem Relation Heart Attack Father [...] years without success. [facility] to control [...] management, and was referred as well to slasher sawyer. Plan: Request that her dipper clock and watch hands clear her, and make recommendations 3. Mammogram: [...] to your private appointme nt with the continuous improvement engineer. These classes will be scheduled apporoximately 1 month apart to allow time for you to put the teaching into action. Please call [phone] + Labs needed: lipids, CBC, CMP, TSH, [...] are done + EKG: Please Have your dipper clock and watch hands do the eval and send it to us + Pre-op Psychological Evaluation: Your referral is at [facility], The Pain Management Office will call [...] be safely completed. + Sign up for Aunt Bertha so that we can communicate easily back and forth Once the above list is completed and copies have been received by our office, we will submi t for insurance authorization then schedule with the surgeon. KAIN De Dios DNP, TECHNOLOGY APPLICATIONS TEACHER Nurse Practitioner for Bariatric Surgery [facility] | [address] | [place], [place] | [address] | documented in this encounter Plan of [...] | | 2018 | Visit | | [address] | | | | | | [place], [place] | | | | | | [address] | | | | | | [phone] | | | | | | | [...]
--- OUTSIDE RECORDS SUMMARY | ~2019-05-20 | XMS | Encounter Summary ---
Demographics + + + | Address | [address] | | | [place] [address] | + + + | Home Phone [...] + | Katalina Padilla | ECON | [address] | | | | | [place], [place] | | | | | [address] | | + + + + + | Ellie Vang | ECON | Unknown | | + + + + + Care Team Providers + +------+ + | Care Lace Burn Out Tender Name | Role | Phone | + +------+ + | Fadi Goodrich DO | PCP | | + +------+ + Encounter Details +--------+------+ + + + | Date | Type | Department | Care Team | Description | +--------+------+ + + + | 05/27/ | Lab | Laboratory at [facility] | | History of Frandy-en-Y | | 2017 | | [address] | | gastric bypass; | | | | [place], [place] | | Ventral hernia | | | | [address] | | without obstruction | | | | [phone] | | or gangrene; Mixed | | [...] [place] | | | | | | [address] | | | | | | [phone] | | | | | | | [...] HTN | | | | | | AAMRA treated with | | | | | [...] | + + + + + | [facility]. | [address] | [place] [address] | | | SERVICES, CORE | CLARENCE [...] + + | [facility] | [address] [facility] [address] [facility] | [place] [address] | | | SERVICES, CORE | PARK [...] | + + + + + | [facility] | [address] | [place] [address] | | | SERVICES, SPECIAL | CLARENCE [...] | | | | | determined by [facility] | | | | | | Laboratories. See | | | | | | Compliance Statement B: | | | | | | [employer].W[employer] With Style/CSPerformed | | | | | | by [employer],[address] | | | | | | Liliana Martinez [place], [place] | | | | | | [address] | | | | | | [phone].FirmPlay. | | | | | | comIsmael [...] [facility] | [address] | [place], [place] | | | [facility] | | [address] | | + + + + + [...] | + + + + + | [facility] REC[facility]. | [address] | [place] [address] | | | CLAIRE, LYDIA | CLARENCE [...] | + + + + + | [facility] [employer] | [address] | [place] [address] | | | SERVICES, CORE | CLARENCE [...] [facility] | [address] | [place] [address] | | | SERVICES, CORE | CLARENCE [...] | + + + + + | [facility] | [address] | [place] [address] | | | SERVICES, CORE | CLARENCE [...] [facility] | [address] | [place] [address] | | | SERVICES, CORE | PARK [...] [facility] | [address] | [place] [address] | | | SERVICES, CORE | PARK [...]
--- OUTSIDE RECORDS SUMMARY | ~2019-05-20 | XMS | Encounter Summary ---
Demographics + + + | Address | [address] | | | [place] [address] | + + + | Home Phone [...] [place], [place] | | | | | [address] | | + + + + + | Ellie Vang | ECON | Unknown | | + + + + + Care Team Providers + +------+ + | Care Putty And Caulking Supervisor Name | Role | Phone | [...] | | | [address] | [place], [place] | | | | | Mailcode: L223A | [address] | | | | | [facility] | [phone] | | | | | [address] [place], [place] | | | | | | [address] | | | | | | [phone] | | | +--------+---------+ + + + [...] Dr. Andie Brian Incisional hernia repair 02/2015 [facility]/ Dr. Cantu PHYSICAL EXAMINATION: BP 133/63 [...] GENERAL SURGERY AT [facility] [address] [facility] Mailcode: [address] [place] [address] documented in this encounter Plan [...] | | | | | [address] [place], [place] | | | | | | [address] | | | | | | [phone] | | | | | | | [...]
--- OUTSIDE RECORDS SUMMARY | ~2019-05-20 | XMS | Encounter Summary ---
[...] [place], [place] | | | | | [address] | | + + + + + | Ellie Vang | ECON | Unknown | | + + + + + Care Team Providers + +------+ + | Care Property Inspector Name | Role | Phone | [...] | 2016 | on | Center at [place] [address] | | | | | | [address] | | | | | | Mailcode: [place] | | | | | | for Health and | | | | | | [facility] | | | | | | [place], [place] | | | | | | [address] | | | | | | [phone] | | | +--------+ + + + [...] | | 2019 | Visit | | [address] | | | | | | [place], [place] | | | | | | [address] | | | | | | [phone] | | | | | | | | +--------+ + + + + | 07/08/ | Procedure | Surgery | | | | 2019 | Pass | | | | +--------+ + + + + documented as of this encounter Visit Diagnoses Not on filedocumented in this encounter"
--- OUTSIDE RECORDS SUMMARY | ~2019-05-20 | XMS | Encounter Summary ---
Demographics + + + | Address | [address] | | | [place] [address] | + + + | Home Phone [...] + | Katalina Padilla | ECON | [address] | | | | | [place], [place] | | | | | [address] | | + + + + + | Ellie Vang | ECON | Unknown | | + + + + + Care Team Providers + +------+ + | Care Php Web Developer Name | Role | Phone | [...] + + | 03/01/ | Hospital | [facility] [address] | Ion Castanon, | | | 2018 - | Encounter | [address] | [address] | | | | | [place], [place] | [place], [place] | | | 03/03/ | | [address] | [address] | | | 2017 | | [phone] | [phone] | | | | | | | [...] Gavin ACNP - 03/03/2018 9:49 AM PDT [facility] RED SURGERY INPATIENT DISCHARGE SUMMARY Author: [...] to a bariatric full liquid diets. Our [facility] dietitian was consulted and they discussed her [...] at minimum. 5. Follow with PCP for Supervisor Chemical within 1 - 2 weeks of discharge [...] mg by mouth two times daily. CALCIUM [id number]-GENIS ORAL Take 2 tablets by mouth two [...] or Kefir, [place] Yogurt, and Chioban i American Yogurt are common brands with beneficial probiotics. [...] are available over the counter at most [facility] [employer] stores. Nausea/Vomiting/Difficulty Swallowing Nausea/Vomiting/Difficulty swallowing: Could be [...] hours per your instructions. Some medications, like [place], have Tylenol in it. Make sure you [...] hours by calling the surgery office at [phone]. - After hours, weekends and holidays, you may call the hospital vertical mill operator at [phone] an d have the health information provider Red Surgery Team paged. OTHER DISCHARGE ORDERS [...] at minimum. 5. Follow with PCP for Supervisor [employer] within 1 - 2 weeks of discharge [...] Department Dept Phone Center 03/10/2018 1:[address] [facility] at [facility] 6th Floor [phone] FO OD AND NUT 03/10/2018 3:05 PM [facility] at [facility] 6th Floor [phone] [facility] 04/01/2018 10:[address] [facility] at [facility] 6th Floor [phone] FO OD AND NUT 04/01/2018 11:00 AM Ion Castanon [facility] at [facility] 6th Floor [phone] [facility] 05/27/2018 2:30 PM [facility] at [facility] 6th Floor [phone] FO OD AND NUT 05/27/2018 3:05 PM [facility] at [facility] 6th Floor [phone] [facility] 05/27/2018 4:30 PM [facility] at [facility] 15th Floor [phone] Comprehensiv 06/04/2018 10:35 AM Randell Franks Cardiology Preventive at [facility] [phone] Cardiology Discharging Physician: KAIN Agee Attending Physician: Ion Castanon MD [facility] Surgery Pager# [phone] 9:50 AM 03/03/2018 documented in this enco [...] | | 0 | | | | [id number]-GEN | mouth two times | | | [...] date of discharge 03/03/18 PARTHA Calixto MS3 [facility] Demarcus Menon MD - 03/02 [...] for care ride home (pt lives in [place]) Demarcus Alas M.D. General Surgery Resident PGY-1 Pager: [phone] Ion Ferrari MD - 10:00 AM PDTI [...] | | 2018 | Visit | | [address] | | | | | | [place], [place] | | | | | | [address] | | | | | | [phone] | | | | | | | [...] | | PDT | over, adult ([facility]) | results section. | + +--------+ + + + | CAPILLARY BLOOD | Routin | 03/03/2018 | Morbid obesity | Results for this | | GLUCOSE (NO CHG), | e | 7:54 AM | with BMI of 70 and | procedure are in the | | POC | | PDT | over, adult ([facility]) | results section. | + +--------+ + + + | CAPILLARY BLOOD | Routin | 03/03/2018 | Morbid obesity | Results for this | | GLUCOSE (NO CHG), | e | 6:28 AM | with BMI of 70 and | procedure are in the | | POC | | PDT | over, adult ([facility]) | results section. | + +--------+ + + + | CAPILLARY BLOOD | Routin | 03/02/2018 | Morbid obesity | Results for this | | GLUCOSE (NO CHG), | e | 9:17 PM | with BMI of 70 and | procedure are in the | | POC | | PDT | over, adult ([facility]) | results section. | + +--------+ + + + | CAPILLARY BLOOD | Routin | 03/02/2018 | Morbid obesity | Results for this | | GLUCOSE (NO CHG), | e | 6:50 PM | with BMI of 70 and | procedure are in the | | POC | | PDT | over, adult ([facility]) | results section. | + +--------+ + + + | CAPILLARY BLOOD | Routin | 03/02/2018 | Morbid obesity | Results for this | | GLUCOSE (NO CHG), | e | 3:46 PM | with BMI of 70 and | procedure are in the | | POC | | PDT | over, adult ([facility]) | results section. | + +--------+ + + + | CAPILLARY BLOOD | Routin | 03/02/2018 | Morbid obesity | Results for this | | GLUCOSE (NO CHG), | e | 2:36 PM | with BMI of 70 and | procedure are in the | | POC | | PDT | over, adult ([facility]) | results section. | + +--------+ + + + | CAPILLARY BLOOD | Routin | 03/02/2018 | Morbid obesity | Results for this | | GLUCOSE (NO CHG), | e | 1:33 PM | with BMI of 70 and | procedure are in the | | POC | | PDT | over, adult ([facility]) | results section. | + +--------+ + + + | CAPILLARY BLOOD | Routin | 03/02/2018 | Morbid obesity | Results for this | | GLUCOSE (NO CHG), | e | 11:36 AM | with BMI of 70 and | procedure are in the | | POC | | PDT | over, adult ([facility]) | results section. | + +--------+ + + + | CAPILLARY BLOOD | Routin | 03/02/2018 | Morbid obesity | Results for this | | GLUCOSE (NO CHG), | e | 10:32 AM | with BMI of 70 and | procedure are in the | | POC | | PDT | over, adult ([facility]) | results section. | + +--------+ + + + | CAPILLARY BLOOD | Routin | 03/02/2018 | Morbid obesity | Results for this | | GLUCOSE (NO CHG), | e | 9:23 AM | with BMI of 70 and | procedure are in the | | POC | | PDT | over, adult ([facility]) | results section. | + +--------+ + + + | CAPILLARY BLOOD | Routin | 03/02/2018 | Morbid obesity | Results for this | | GLUCOSE (NO CHG), | e | 8:36 AM | with BMI of 70 and | procedure are in the | | POC | | PDT | over, adult ([facility]) | results section. | + +--------+ + + + | CAPILLARY BLOOD | Routin | 03/02/2018 | Morbid obesity | Results for this | | GLUCOSE (NO CHG), | e | 7:35 AM | with BMI of 70 and | procedure are in the | | POC | | PDT | over, adult ([facility]) | results section. | + +--------+ + + + | CAPILLARY BLOOD | Routin | 03/02/2018 | Morbid obesity | Results for this | | GLUCOSE (NO CHG), | e | 6:33 AM | with BMI of 70 and | procedure are in the | | POC | | PDT | over, adult ([facility]) | results section. | + +--------+ + + + | CAPILLARY BLOOD | Routin | 03/02/2018 | Morbid obesity | Results for this | | GLUCOSE (NO CHG), | e | 5:28 AM | with BMI of 70 and | procedure are in the | | POC | | PDT | over, adult ([facility]) | results section. | + +--------+ + + + | CAPILLARY BLOOD | Routin | 03/02/2018 | Morbid obesity | Results for this | | GLUCOSE (NO CHG), | e | 4:36 AM | with BMI of 70 and | procedure are in the | | POC | | PDT | over, adult ([facility]) | results section. | + +--------+ + + + | CAPILLARY BLOOD | Routin | 03/02/2018 | Morbid obesity | Results for this | | GLUCOSE (NO CHG), | e | 2:46 AM | with BMI of 70 and | procedure are in the | | POC | | PDT | over, adult ([facility]) | results section. | + +--------+ + + + | CAPILLARY BLOOD | Routin | 03/02/2018 | Morbid obesity | Results for this | | GLUCOSE (NO CHG), | e | 12:32 AM | with BMI of 70 and | procedure are in the | | POC | | PDT | over, adult ([facility]) | results section. | + +--------+ + + + | CAPILLARY BLOOD | Routin | 03/01/2018 | Morbid obesity | Results for this | | GLUCOSE (NO CHG), | e | 10:31 PM | with BMI of 70 and | procedure are in the | | POC | | PDT | over, adult ([facility]) | results section. | + +--------+ + + + | CAPILLARY BLOOD | Routin | 03/01/2018 | Morbid obesity | Results for this | | GLUCOSE (NO CHG), | e | 8:21 PM | with BMI of 70 and | procedure are in the | | POC | | PDT | over, adult ([facility]) | results section. | + +--------+ + [...] | | PDT | over, adult ([facility]) | results section. | + +--------+ + + + | CAPILLARY BLOOD | Routin | 03/01/2018 | Morbid obesity | Results for this | | GLUCOSE (NO CHG), | e | 3:31 PM | with BMI of 70 and | procedure are in the | | POC | | PDT | over, adult ([facility]) | results section. | + +--------+ + + + | CAPILLARY BLOOD | Routin | 03/01/2018 | Morbid obesity | Results for this | | GLUCOSE (NO CHG), | e | 3:29 PM | with BMI of 70 and | procedure are in the | | POC | | PDT | over, adult ([facility]) | results section. | + +--------+ + + + | CAPILLARY BLOOD | Routin | 03/01/2018 | Morbid obesity | Results for this | | GLUCOSE (NO CHG), | e | 2:30 PM | with BMI of 70 and | procedure are in the | | POC | | PDT | over, adult ([facility]) | results section. | + +--------+ + + + | CAPILLARY BLOOD | Routin | 03/01/2018 | Morbid obesity | Results for this | | GLUCOSE (NO CHG), | e | 1:35 PM | with BMI of 70 and | procedure are in the | | POC | | PDT | over, adult ([facility]) | results section. | + +--------+ + + + | CAPILLARY BLOOD | Routin | 03/01/2018 | Morbid obesity | Results for this | | GLUCOSE (NO CHG), | e | 12:16 PM | with BMI of 70 and | procedure are in the | | POC | | PDT | over, adult ([facility]) | results section. | + +--------+ + [...] | | PDT | over, adult ([facility]) | results section. | + +--------+ + + + | LAPAROSCOPIC | Electi | 03/01/2018 | Morbid obesity | | | NISH-EN-Y GASTRIC | ve | 8:31 AM | ([facility]) | | | BYPASS | Surgic | [...] [facility] | [address] | [place], [place] | | | [facility] | [address] | [address] | | | TESTS | | | [...] - [facility] | [address] | [place], [place] | | | [facility] | [facility] | [address] | | | TESTS | | | [...] AMES | [address] | [place], [place] | | | [facility] | [address] | [address] | | | TESTS | | | [...] [facility] | [address] | [place], [place] | | | [facility] | [address] | [address] | | | TESTS | | | [...] [facility] | [address] | [place], [place] | | | [facility] | [facility] | [address] | | | TESTS | | | [...] (H) | 70 - 99 mg/dL | [facility] - | | | GLUCOSE, | [...] AMES | [address] | [place], [place] | | | [facility] | [address] | [address] | | | TESTS | | | [...] [facility] | [address] | [place], [place] | | | [facility] | [address] | [address] | | | TESTS | | | [...] [facility] | [address] | [place], [place] | | | [facility] | [facility] | [address] | | | TESTS | | | [...] (H) | 70 - 99 mg/dL | [facility] - | | | GLUCOSE, | [...] AMES | [address] | [place], [place] | | | [facility] | [address] | [address] | | | TESTS | | | [...] + + | Performing | Address | City/State[facility] | Phone Number | | Organization | | | | + + + + + | [facility] | [address] | [place], [place] | | | [facility] | [address] | [address] | | | TESTS | | | [...] [place] | [address] | [place], [place] | | | [facility] | [facility] | [address] | | | TESTS | | | [...] (H) | 70 - 99 mg/dL | [facility] - | | | GLUCOSE, | [...] + + + + | [facility] | [address] | [place], [place] | | | [facility] | [address] | [address] | | | TESTS | | | [...] + + | Performing | Address | City/State/[facility] | Phone Number | | Organization | | | | + + + + + | [facility] | [address] | [place], [place] | | | [facility] | [facility] | [address] | | | TESTS | | | [...] [facility] | [address] | [place], [place] | | | [facility] | [facility] | [address] | | | TESTS | | | [...] (H) | 70 - 99 mg/dL | [facility] - | | | GLUCOSE, | [...] [facility] | [address] | [place], [place] | | | [facility] | [address] | [address] | | | TESTS | | | [...] AMES | [address] | [place], [place] | | | [facility] | [facility] | [address] | | | TESTS | | | [...] [place] | [address] | [place], [place] | | | [facility] | [facility] | [address] | | | TESTS | | | [...] (H) | 70 - 99 mg/dL | [facility] - | | | GLUCOSE, | [...] [place] | [address] | [place], [place] | | | [facility] | [address] | [address] | | | TESTS | | | [...] AMES | [address] | [place], [place] | | | [facility] | [facility] | [address] | | | TESTS | | | [...] - [facility] | [address] | [place], [place] | | | [facility] | [facility] | [address] | | | TESTS | | | [...] (H) | 70 - 99 mg/dL | [facility] - | | | GLUCOSE, | [...] [facility] | [address] | [place], [place] | | | [facility] | [address] | [address] | | | TESTS | | | [...] + + | Performing | Address | City/State/[facility] | Phone Number | | Organization | | | | + + + + + | [facility] | [address] | [place], [place] | | | [facility] | [facility] | [address] | | | TESTS | | | [...] [place] | [address] | [place], [place] | | | [facility] | [facility] | [address] | | | TESTS | | | [...] (H) | 70 - 99 mg/dL | [facility] - | | | GLUCOSE, | [...] MARQU[facility] | [address] | [place], [place] | | | [facility] | [address] | [address] | | | TESTS | | | [...] AMES | [address] | [place], [place] | | | [facility] | [facility] | [address] | | | TESTS | | | [...] MARQU[facility] | [address] | [place], [place] | | | [facility] | [address] | [address] | | | TESTS | | | | + + + + + EGD (ESOPHAGOGASTRODUODENOSCOPY) (03/01/2018 11:21 AM PDT) + + + | Narrative | Performed At | + + + | Ion Castanon MD 03/01/2018 12:25 PM Date of Procedure: | | | 03/01/18 Primary Surgeon: Ion Castanon MD Co Surgeon or | | | clinical trials assistant: Eldon Gonzalez MD, Chief Resident Alexx [...] The jejunum was divided with 60 mm Clarks stapler with white | | | load [...] created in each limb and a 60mm Clarks stapler | | | with white load was fired to create a irbe-qc-yyce | | | jejunojejunostomy. The anastamosis was confirmed to be widely | | | patent and hemostatic. The common enterotomy was closed by placing | | | 2 stay sutures along the enterotomy for retraction and firing an | | | Clarks 60mm stapler with white load across the [...] | | | was entered. The 60mm Clarks stapler with blue load was placed | [...] blue load of the 60mm stapler. The Clarks was then fired | | | longitudinally towards the angle of His to create the gastric pouch, | | | leaving the gastrotomy from foreign body removal, on the pouch. | | | Dissection was performed retrogastric to connect posterior and | | | anterior dissection planes and ensure adequate fundus exclusion. | | | Additional fires of the Clarks stapler were performed with blue | | [...] with | | | 5 mm clip associate professor of history. A 25mm Orvil was passed transorally by [...] was closed with 60mm | | | Clarks stapler with a white load. Medially and [...] was present | | | as my clinical trials assistant for the entire procedure, given the technically | | | challenging nature of this procedure. She assisted in all critical | | | steps of the procedure. Dr. Gonzalez was present for endoscopy at the | | | end of the procedure. Ion Castanon MD, FACS, [facility] | | | Bariatric Surgery | | [...] MD Co Surgeon or | | | clinical trials assistant: Eldon Gonzalez MD, Chief Resident Alexx [...] The jejunum was divided with 60 mm Clarks stapler with white | | | load [...] created in each limb and a 60mm Clarks stapler | | | with white load was fired to create a jgue-dw-ampx | | | jejunojejunostomy. The anastamosis was confirmed to be widely | | | patent and hemostatic. The common enterotomy was closed by placing | | | 2 stay sutures along the enterotomy for retraction and firing an | | | Clarks 60mm stapler with white load across the [...] | posterior to the nish limb. A Taglocity liver retractor was | | | placed [...] | | | was entered. The 60mm Clarks stapler with blue load was placed | [...] blue load of the 60mm stapler. The Clarks was then fired | | | longitudinally towards the angle of His to create the gastric pouch, | | | leaving the gastrotomy from foreign body removal, on the pouch. | | | Dissection was performed retrogastric to connect posterior and | | | anterior dissection planes and ensure adequate fundus exclusion. | | | Additional fires of the Clarks stapler were performed with blue | | [...] with | | | 5 mm clip associate professor of history. A 25mm Orvil was passed transorally by [...] was closed with 60mm | | | Clarks stapler with a white load. Medially and [...] was present | | | as my clinical trials assistant for the entire procedure, given the technically | | | challenging nature of this procedure. She assisted in all critical | | | steps of the procedure. Dr. Gonzalez was present for endoscopy at the | | | end of the procedure. Ion Castanon MD, FACS, [facility] | | | Bariatric Surgery | | [...] [facility] | [address] | [place], [place] | | | [facility] | [facility] | [address] | | | TESTS | | | [...]
--- OUTSIDE RECORDS SUMMARY | ~2019-05-20 | XMS | Encounter Summary ---
Demographics + + + | Address | [address] | | | [place] [address] | + + + | Home Phone [...] [place], [place] | | | | | [address] | | + + + + + | Ellie Vang | ECON | Unknown | | + + + + + Care Team Providers + +------+ + | Care Blasting Contract Man Name | Role | Phone | [...] the | | | | | | [facility] [address] [facility] | | | | | | [facility] | | | | | | [place], [place] | | | | | | [address] | | | +--------+ + + + [...] | | 2018 | Visit | | [address] | | | | | | [place], [place] | | | | | | [address] | | | | | | [phone] | | | | | | | | +--------+ + + + + | 07/08/ | Procedure | Surgery | | | | 2019 | Pass | | | | +--------+ + + + + documented as of this encounter Visit Diagnoses Not on filedocumented in this encounter"
--- OUTSIDE RECORDS SUMMARY | ~2019-05-20 | XMS | Encounter Summary ---
Demographics + + + | Address | [address] | | | [place] [address] | + + + | Home Phone [...] [place], [place] | | | | | [address] | | + + + + + | Ellie Vang | ECON | Unknown | | + + + + + Care Team Providers + +------+ + | Care Children'S Ministries Director Name | Role | Phone | [...] 2017 | | Center at [facility] [address] | ACNP [address] | | | | | [address] | Ave [place], [place] | | | | | Mailcode: [place] | [address] | | | | | for Health and | [phone] | | | | | [facility] [address] | | | | | | [place], [place] | | | | | | [address] | | | | | | | [...] | 2018 | Visit | | MD [address] | | | | | | [place], [place] | | | | | | [address] | | | | | | [phone] | | | | | | | | +--------+ + + + + | 07/08/ | Procedure | Surgery | | | | 2018 | Pass | | | | +--------+ + + + + documented as of this encounter Visit Diagnoses Not on filedocumented in this encounter"
--- OUTSIDE RECORDS SUMMARY | ~2019-05-20 | XMS | Encounter Summary ---
Demographics + + + | Address | [address] | | | [place] [address] | + + + | Home Phone [...] Providers + +------+ + | Care Licensed Massage Practitioner Name | Role | Phone | [...] | | | | | obstruction | [place], | Mailcode: | | | | | or gangrene | [place] | [facility] | | Ab[facility] | [address] | Health and | | | | | pain, | Phone: | Healing, | | | | | unspecified | | Building [address] | | | | | abdominal | Fax: | [place], [place] | | | | | location | [phone] | [address] | | | | | Procedures | | Phone: | | | | | CONSULT TO | | [phone] | | | | | SURGERY - | | Fax: | | | | | GENERAL | | [phone] | + +--------+ + + + + [...] | | [address] | Ave [place], [place] | | | | | Mailcode: [place] | [address] | | | | | for Health and | | | | | | [facility], [facility] [address] | | | | | | [facility] [place] | | | | | | [address] | | | | | | | [...] | | | | [place], [place] | | | | | | [address] | | | | | | [phone] | | | | | | | [...]
--- OUTSIDE RECORDS SUMMARY | ~2019-05-20 | XMS | Encounter Summary ---
Demographics + + + | Address | [address] | | | [place] [address] | + + + | Home Phone [...] Author | [facility] | | | and Jeffana | + + + | Organization | [facility] | | | and Jeffana [...] Team Providers + +------+ + | Care Sulphate Tester Name | Role | Phone | [...] RIZVI F | | | | | [place], [place] | [place] [address] | | | | | [address] | [phone] | | | | | [phone] | | | +--------+ + + + [...] 0.61 m/s | | | MV Dec Taliaferro: 2.43 m/s2 MV DecT: 247.51 ms MV E Jeffrey: | | | 0.60 m/s MV E/A Ratio: 0.98 MV PHT: 71.78 ms MVA By | | | PHT: 3.06 cm2 Septal e': 0.06 m/s Septal E/e': 9.54 | | | Lateral e': 0.10 m/s Lateral E/e': 5.84 RAP: 5 mmHg RV | | | s': 0.11 m/s Sociocultural Anthropology Professor: JESSICA Authenticated by: Darryl | | | [facility] Report Date/Time: 02-22-2019 20:8:36 | | [...] cmLVIDd: 4.70 cmLVPWd: 0.79 cmLVOT Area: 3.58 [id number] Diam: 2.13 cm%FS: 39.25 | | %EF(Teich): [...] | Index (A-L): 14.72 ml/m2LAAs A2C: 10.03 [id number] A-L A2C: 22.69 mlLALs A2C: 3.76 | | cmLAAs A4C: 13.41 [id number] A-L A4C: 36.80 mlLALs A4C: 4.14 cmRAAs: 11.18 | | ul4OFAHT A-L: 22.84 mlRAESV MOD: 22.10 mlRALs: 4.64 cmTAPSE: 2.04 cmAV maxPG: | | 6.55 mmHgAV meanP.52 mmHgAV Vmax: 1.27 m/Genesis Vmean: 0.88 m/Genesis VTI: 26.50 | | cmAVA Vmax: 2.49 cm2AVA (VTI): 2.39 me2FOEL Vmax: 0.00 cm2/m2AVAI (VTI): 0.00 | | cm2/m2LVOT maxP.17 mmHgLVOT meanP.82 mmHgLVSI Dopp: 30.83 ml/m2LVSV Dopp: | | 63.52 mlLVOT Vmax: 0.89 m/sLVOT Vmean: 0.65 m/sLVOT VTI: 17.71 cmMV A Jeffrey: | | 0.61 m/sMV Dec Taliaferro: 2.43 m/s2MV DecT: 247.51 msMV E Jeffrey: 0.60 m/sMV E/A Ratio: | | 0.98MV PHT: 71.78 msMVA By PHT: 3.06 [id number] e': 0.06 m/sSeptal E/e': | | 9.54Lateral e': 0.10 m/sLateral E/e': 5.84RAP: 5 mmHgRV s': 0.11 m/s | | Sociocultural Anthropology Professor: DHAuthenticated by: Darryl Hess Date/Time: 02-22-2019 20:8:36 [...] A Jeffrey: 0.61 m/s | |MV Dec Taliaferro: 2.43 m/s2 | |MV DecT: 247.51 ms | |MV E Jeffrey: 0.60 m/s | |MV E/A Ratio: 0.98 | |MV PHT: 71.78 ms | |MVA By PHT: 3.06 cm2 | |Septal e': 0.06 m/s | |Septal E/e': 9.54 | |Lateral e': 0.10 m/s | |Lateral E/e': 5.84 | |RAP: 5 mmHg | |RV s': 0.11 m/s | | | |Sociocultural Anthropology Professor: JESSICA | |Authenticated by: Darryl Merrill | [...]
--- OUTSIDE RECORDS SUMMARY | ~2019-05-20 | XMS | Encounter Summary ---
Demographics + + + | Address | [address] | | | [place] [address] | + + + | Home Phone [...] + | Katalina Padilla | ECON | [address] | | | | | [place], [place] | | | | | [address] | | + + + + + | Ellie Vang | ECON | Unknown | | + + + + + Care Team Providers + +------+ + | Care Utility Helicopter Repairer Name | Role | Phone | [...] | | | | | Healing, | [place], [place] | | | | | | [address] | [address] | | | | | | [place], [place] | Phone: | | | | | | [address] | [phone] | | | | | | Phone: | Fax: | | | | | | [phone] | [phone] | | | | | | Fax: | | | | | | | [phone] | | +--------+--------+ + + + + [...] | | | | | Healing, | [place], [place] | | | | | | [address] | [address] | | | | | | [place], [place] | Phone: | | | | | | [address] | [phone] | | | | | | Phone: | Fax: | | | | | | [phone] | [phone] | | | | | | Fax: | | | | | | | [phone] | | +--------+--------+ + + + + Encounter Details +--------+ + + + + | Date | Type | Department | Care Team | Description | +--------+ + + + + | 10/07/ | Hospital | Radiology/Imaging | | | | 2012 | Encounter | Lab at [facility] [address] | | | | [address] Mailcode: | | | | | | [facility], | | | | | | Building [address], 3rd | | | | | | Floor [place], [place] | | | | | | [address] | | | | | | [phone] | | | +--------+ + + + [...] | | 2018 | Visit | | [address] | | | | | | [place], [place] | | | | | | [address] | | | | | | [phone] | | | | | | | [...] + +---------+ + + | [facility] DEPARTMENT OF | | | [...] 12 | 6 - 20 mg/dL | [facility], | | | | | [...] + | NKECHI VALDEZ, POINT | [address] [facility] | [place] [address] | | | OF CARE TESTS | | | | + + + + + documented in this encounter Visit Diagnoses + + | Diagnosis | + + | Hernia Hernia of unspecified site of abdominal cavity without mention of obstruction | | or gangrene | + + documented in this encounter"
--- OUTSIDE RECORDS SUMMARY | ~2019-05-20 | XMS | Encounter Summary ---
Demographics + + + | Address | [address] | | | [place] [address] | + + + | Home Phone [...] [place], [place] | | | | | [address] | | + + + + + | Ellie Vang | ECON | Unknown | | + + + + + Care Team Providers + +------+ + | Care Dairy Technician Name | Role | Phone | [...] | Preventive at [facility] | [address] | (Phentermine); | | | | [address] | [place], [place] | Refill Request | | | | Mailcode: Mihaela | [phone] | | | | | [facility] | [phone] | | | | | and [address], | | | | | | [address] | | | | | | [place], [place] | | | | | | [address] | | | | | | [phone] | | | +--------+--------+ + + + [...] | | | | | [place], [place] | | | | | | [address] | | | | | | [phone] | | | | | | | | +--------+ + + + + | 07/08/ | Procedure | Surgery | | | | 2018 | Pass | | | | +--------+ + + + + documented as of this encounter Visit Diagnoses Not on filedocumented in this encounter"
--- OUTSIDE RECORDS SUMMARY | ~2019-05-20 | XMS | Encounter Summary ---
Demographics + + + | Address | [address] | | | [place] [address] | + + + | Home Phone [...] [place], [place] | | | | | [address] | | + + + + + | Ellie Vang | ECON | Unknown | | + + + + + Care Team Providers + +------+ + | Care Internal Controls Specialist Name | Role | Phone | [...] Randell | | | | | | [address] | [address] | | | | | | [address], | Ave | | | | | | [address] | [place], [place] | | | | | | [place], [place] | [address] | | | | | | [address] | Phone: | | | | | | Phone: | [phone] | | | | | | [phone] | Fax: | | | | | | Fax: | [phone] | | | | | | [phone] | | +--------+--------+ + + + + Encounter Details +--------+---------+ + + + | Date | Type | Department | Care Team | Description | +--------+---------+ + + + | 08/29/ | Office | Cardiology | Randell Franks, | HTN (hypertension) | | 2013 | Visit | Preventive at [facility] | MD [address] | (Primary Dx); 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[place], [place]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
--- OUTSIDE RECORDS SUMMARY | ~2019-05-20 | XMS | Encounter Summary ---
Demographics + + + | Address | [address] | | | [place] [address] | + + + | Home Phone [...] [place], [place] | | | | | [address] | | + + + + + | Ellie Vang | ECON | Unknown | | + + + + + Care Team Providers + +------+ + | Care Duco Polisher Name | Role | Phone | + +------+ + | Fadi Goodrich DO | PCP | | + +------+ + Encounter Details +--------+ + + + + | Date | Type | Department | Care Team | Description | +--------+ + + + + | 12/12/ | Emergency | [facility] Emergency | | | | 2014 - | | Department [address] | | | | | [address] | | | | 05/20/ | | [facility] | | | | 2014 | | [place], [place] | | | | | | [address] | | | | | | [phone] | | | +--------+ + + + [...] | | | | | [place], [place] | | | | | | [address] | | | | | | [phone] | | | | | | | | +--------+ + + + + | 07/08/ | Procedure | Surgery | | | | 2018 | Pass | | | | +--------+ + + + + documented as of this encounter Visit Diagnoses Not on filedocumented in this encounter"
--- OUTSIDE RECORDS SUMMARY | ~2019-05-20 | XMS | Encounter Summary ---
Demographics + + + | Address | [address] | | | [place] [address] | + + + | Home Phone [...] [place], [place] | | | | | [address] | | + + + + + | Ellie Vang | ECON | Unknown | | + + + + + Care Team Providers + +------+ + | Care Endoscopy Registered Nurse Name | Role | Phone | [...] | | 2018 | Visit | | [address] | | | | | | [place], [place] | | | | | | [address] | | | | | | [phone] | | | | | | | | +--------+ + + + + | 07/08/ | Procedure | Surgery | | | | 2018 | Pass | | | | +--------+ + + + + documented as of this encounter Visit Diagnoses Not on filedocumented in this encounter"
--- OUTSIDE RECORDS SUMMARY | ~2019-05-20 | XMS | Encounter Summary ---
Demographics + + + | Address | [address] | | | [place] [address] | + + + | Home Phone [...] [place], [place] | | | | | [address] | | + + + + + | Ellie Vang | ECON | Unknown | | + + + + + Care Team Providers + +------+ + | Care Enrollment Nurse Name | Role | Phone | [...] | | | | | essential | [address] | [address] | | | | | hypertension | [address] | Ave | | | | | Type II or | [address] | [place], [place] | | | | | unspecified | [place], [place] | [address] | | | | | type | [address] | Phone: | | | | | diabetes | Phone: | [phone] | | | | | mellitus | [phone] | Fax: | | | | | without | Fax: | [phone] | | | | | mention of | [phone] | | | | | | complication [...] | 2015 | Visit | Preventive at [facility] | MD [address] | mellitus (HCC) | | | | [address] | Ave [place], [place] | (Primary Dx) | | | | Mailcode: [address] | [address] | | | | | [facility] | [phone] | | | | | and Healing, | | | | | | [address] | | | | | | [place], [place] | | | | | | [address] | | | | | | [phone] | | | +--------+---------+ + + + [...] check A1c at that time.Electronically signed by aRndell Franks MD at 0 08/28/2014 11:02 AM [...] | | | | | [place], [place] | | | | | | [address] | | | | | | [phone] | | | | | | | [...] | + + + + + | [facility] | [address] | [place] [address] | | | SERVICES, CORE | CLARENCE [...] [facility] | [address] | [place] [address] | | | SERVICES, SPECIAL | PARK [...]
--- OUTSIDE RECORDS SUMMARY | ~2019-05-20 | XMS | Encounter Summary ---
Demographics + + + | Address | [address] | | | [place] [address] | + + + | Home Phone [...] [place], [place] | | | | | [address] | | + + + + + | Ellie Vang | ECON | Unknown | | + + + + + Care Team Providers + +------+ + | Care Header Set Up Operator Name | Role | Phone | [...] | | 2017 | | Preventive at [facility] | [address] | Request ([address] | | | | [address] | Ave [facility] [place] | mg) | | | | Mailcode: [place]haela | [address] | | | | | [facility] | [phone] | | | | | and [address], | | | | | | [address] | | | | | | [place], [place] | | | | | | [address] | | | | | | [phone] | | | +--------+ + + + [...] | | | | | [place], [place] | | | | | | [address] | | | | | | [phone] | | | | | | | | +--------+ + + + + | 07/08/ | Procedure | Surgery | | | | 2019 | Pass | | | | +--------+ + + + + documented as of this encounter Visit Diagnoses Not on filedocumented in this encounter"
--- OUTSIDE RECORDS SUMMARY | ~2019-05-20 | XMS | Encounter Summary ---
Demographics + + + | Address | [address] | | | [place] [address] | + + + | Home Phone [...] [place], [place] | | | | | [address] | | + + + + + | Ellie Vang | ECON | Unknown | | + + + + + Care Team Providers + +------+ + | Care Legal Nurse Consultant Name | Role | Phone | [...] + + | 06/23/ | Hospital | [facility] [address] | Kaleb Wilcox MD | | | 2017 | Encounter | [address] | [address] | | | | | [address] | [place], [place] | | | | | [place], | [address] | | | | | [place] [address] | [phone] | | | | | [phone] | | | +--------+ + + + [...] hours or on weekends and holiday [facility] toll free [phone]. [phone] and have the GI doctor metal bonder paged. The provider who performed your procedure is: Dr. Wilcox Results of your EGD: Dilation performed. You may resume your regular diet. Follow up Appointments with: Follow up with Dr. Pandey in bariatric surgery, thank you for choosing [facility]! Your primary care provider or referring [...] | | 0 | | | | [id number] | mouth two times | | | [...] 2:35 PM PST PRE PROCEDURE NOTE: MR# [id number] Subjective: Elzbieta Cristina is a 43 y.o. [...] + + + + | 12/02/ | Telephone-S | Pre-operative | | | | 2019 | cheduled | Medicine | | | +--------+ + + + + | 06/30/ | Office | Cardiology | Randell Franks, | | | 2018 | Visit | | [address] | | | | | | [place], [place] | | | | | | [address] | | | | | | [phone] | | | | | | | [...] -----+ | MRN: | [facility] | | [id number] Date: 06/23/2018Patient Name: Elzbieta Curtis #: | ENDOSCOP Y | | [id number] of : 1975CSN: [id number] Type: | | | AmbulatoryRoom: SORProcedure: Upper GI | | | endoscopyIndications: Nausea with vomiting, Status post | | | Azqv-ec-HCimdjpqqw: KALEB WILCOX MD (Doctor)JOSE | | | NASIMA, Reed Or Wind Instrument Repairer | | | (Reed Or Wind Instrument Repairer)Referring MD: DANIELLE GARCÍAPRemateusz | | | Provider: [...] | | | The Olympus [id number]-[id number] Gastroscope #[id number] was | | | introduced through the [...] endoscope without resistance. The | | | ihdrl-pm-dovbzbu limb was characterized by healthy appearing | [...] Initiated On: | | | 06/23/2018 3:58 [facility] Letter to: FADI GOODRICH DO | [...] + + + | [facility] | [address] | [place], [place] | | | JUSTINE DAWN OF CARE | [address] | [address] | | | TESTS | | | [...] Thu06/23/18 at 1532, | | | Until [facility] 06/24/18 at 0027, | | | hypopnea | | + +---+ | | | + +---+ | ondansetron (ZOFRAN) injection | | | 4 mg 4 mg, intravenous, | | | POSTPROCEDURE PRN, 1 dose, | | | Starting Thu06/23/18 at 1532, | | | Until [facility] 06/24/18 at 0027, | | | [...]
--- OUTSIDE RECORDS SUMMARY | ~2019-05-20 | XMS | Encounter Summary ---
Demographics + + + | Address | [address] | | | [place] [address] | + + + | Home Phone [...] [place], [place] | | | | | [address] | | + + + + + | Ellie Vang | ECON | Unknown | | + + + + + Care Team Providers + +------+ + | Care Broadcast Field Supervisor Name | Role | Phone | [...] + + | 11/05/ | Hospital | [facility] 14C [address] | Joseph An | | | 2016 - | Encounter | [address] | MD Birgit [address] [facility] | | | | | 14C [facility] | [address] | | | 11/20/ | | [place], [place] | [place], [place] | | | 2016 | | [address] | [address] | | | | | [phone] | [phone] | | | | | | | | | | | | Ana, | | | | | | MD Briana [address] | | | | | | [address] | | | | | | Rd [place], [place] | | | | | | [address] | | | | | | [phone] | | | | | | | | | | | | Carmelina Tucker, | | | | | | JEFFREY-Aimee [address] | | | | | | [address] | | | | | | [place], [place] | | | | | | [address] | | | | | | [phone] | | | | | | | | | | | | Charley Lacey MD | | | | | | Jose Scott MD | | | | | | [address] | | | | | | [address] | | | | | | [place], [place] | | | | | | [address] | | | | | | [phone] | | | | | | | | | | | | Mannie Larkin MD | | | | | | [address] | | | | | | [address] [place], | | | | | | [place] [address] | | | | | | [phone] | | | | | | | | | | | | Tyrone Adrian MD | | | | | | [address] | | | | | | [address] [place], | | | | | | [place] [address] | | | | | | [phone] | | | | | | | [...] did want her to follow up with classified advertising clerk in [place]. She should continue working towards bariatric surgery wh ich will ultimately put less stress on her heart. -Continue torsemide 80mg BID -Increase potassium supplementation to KCl 40mg BID -Daily weights and strict 2g Na 2L fluid restricted diet -Close followup with Dr. Goodrich (appt on 11/25 at 11AM) -Needs followup with cardiology in [place] #Left lower extremity DVT #Presumed PE Asymmetric left lower extremity pain and swelling was suspicious for DVT and confirmed with duplex ultrasound. Did not pursue CTA as it was decided that it would not price changer . Started anticoagulation bridge with heparin [...] mouth once daily. , Historical Med CALCIUM [id number] ORAL Take 2 tablets by mouth two [...] [facility]est[facility] Failure at [facility] Cardiology Additional Instructions/Orders: Diet Diabetic (Consistent [...] Good Yosef Segovia MD PGY-1 Internal Medicine [id number] INPATIENT FACULTY PROGRESS NOTE - GM 1 [...] (HCC) 15) Candidal intertrigo Tyrone Adrian MD [facility] 14C assistant boys track coach Division of Hospital Medicine Department of Medicine [address] [place] [address] [facility] DEPARTMENT: Hosp- [id number] Place of Service: Date of Service: 11/21/2015 CSN: [id number] Modifiers:GC Resident Involved: Yes Suggested CPT: 18070 Discharge Management < 30 minute documented in this encou nter Medications at Time of Discharge + + + +---------+--------+ + | Medication | Sig | Dispensed | Refills | Start | End Date | | | | | | Date | | + + + +---------+--------+ + | CALCIUM | Take 2 tablets by | | 0 | | | | [id number] | mouth two times | | | [...] (HCC) 15) Candidal intertrigo Tyrone Adrian MD [facility] 14C assistant boys track coach Division of Hospital Medicine Department of Medicine [facility] & [address] [place] [address] [facility] DEPARTMENT: Hosp- [id number] Place of Service: [facility] Date of Service: 11/20/2015 CSN: [id number] Modifiers:GC Resident Involved: Yes Suggested CPT: 25353 Subsequent Visit Exp Prob Foc/Mod Complexity 25 min Colleen Tello - 016 6:49 AM PDT PHYSICIAN TRAINING PROJECT MANAGER STUDENT PROGRESS NOTE FOR EDUCATIONAL PURPOSES ONLY [...] of ovarian cysts or menses related. Contact GRANULATING BLENDER if TV-US i s ordered. - TV-US [...] - topiramate 200mg po bid JEFFREY Gee-S2 [facility] PA Student Feeding: <2L fluid, Diabetic diet, >2g na Analgesia: APAP, gabapentin, hydrocodone Thromboembolic prophylaxis: Heparin/warfarin Glycemic control: moderate ISS Mobility: Encourage walking and movement Discharge: Expect hospital stay another 2-3 days with PCP FU (Dr. Goodrich) on Saturday 11/25 @ 1 1 am. - Referral to Butadiene Compressor Operator Code status: FULL Associated attestation - Juliette Yosef Pryor - 11/20/2015 7:50 PM PDTI have read the [facility] t note by PA student Dara [...] PCP Yosef Segovia MD PGY-1 Internal Medicine [id number] Tyrone Adrian MD - 11/19/2015 11:51 AM [...] if the PO works) Tyrone Adrian MD [facility] 14C assistant boys track coach Division of Hospital Medicine Department of Medicine [facility] [address] [place] [address] [facility] DEPARTMENT: Hosp- [id number] Place of Service: Date of Service: 11/19/2015 CSN: [id number] Modifiers:GC Resident Involved: Yes Suggested CPT: 37472 Subsequent Visit Exp Prob Foc/Mod Complexity 25 min olleen Diamond - 016 6:24 AM PDT PHYSICIAN TRAINING PROJECT MANAGER STUDENT PROGRESS NOTE FOR EDUCATIONAL PURPOSES ONLY [...] of ovarian cysts or menses related. Contact GRANULATING BLENDER if TV-US i s ordered. - TV-US [...] - topiramate 200mg po bid JEFFREY Gee-S2 [facility] PA Student Feeding: <2L fluid, Diabetic diet, [...] can. Yosef Segovia MD PGY-1 Internal Medicine [id number] Tyrone Adrian MD - 11/18/2015 2:01 PM [...] heart failure (HCC) 15) Candidal intertrigo Tyrone Adrina MD [facility] 14C assistant boys track coach Division of Hospital Medicine Department of Medicine [facility] [address] [place] [address] [facility] DEPARTMENT: Hosp- [id number] Place of Service: Date of Service: 11/18/2015 CSN: [id number] Modifiers:GC Resident Involved: Yes Suggested CPT: 77257 Subsequent Visit Exp Prob Foc/Mod Complexity 25 [...] plan. Yosef Segovia MD PGY-1 Internal Medicine [id number] signed by Yosef Segovia at 11/18/2015 11:52 [...] (HCC) 15) Candidal intertrigo Tyrone Adrian MD [facility] 14C assistant boys track coach Division of Hospital Medicine Department of Medicine [facility] [place] [address] [place] [address] [facility] DEPARTMENT: Hosp- [id number] Place of Service: - Date of Service: 11/17/2015 CSN: [id number] Modifiers:GC Resident Involved: Yes Suggested CPT: 78917 Subsequent Visit Exp Prob Foc/Mod Complexity 25 min lowersColleen - 016 6:40 AM PDT PHYSICIAN TRAINING PROJECT MANAGER STUDENT PROGRESS NOTE FOR EDUCATIONAL PURPOSES ONLY [...] - topiramate 200mg po bid JEFFREY Gee-S2 [facility] PA Student Feeding: <2L fluid, [...] can Yosef Segovia MD PGY-1 Internal Medicine [id number] Tyrone Adrian MD - 11/16/2015 4:59 PM [...] (HCC) 15) Candidal intertrigo Tyrone Adrian MD [facility] 14C assistant boys track coach Division of Hospital Medicine Department of Medicine [facility] [address] [place] [address] [facility] DEPARTMENT: Hosp- [id number] Place of Service: Date of Service: 11/16/2015 CSN: [id number] Modifiers:GC Resident Involved: Yes Suggested CPT: 76197 Subsequent Visit Exp Prob Foc/Mod Complexity 25 min olleen Diamond - 016 6:43 AM PDT PHYSICIAN TRAINING PROJECT MANAGER STUDENT PROGRESS NOTE FOR EDUCATIONAL PURPOSES ONLY [...] - topiramate 200mg po bid JEFFREY Gee-S2 [facility] PA Student Feeding: <2L fluid, [...] assistance of Grisel Pearl. Patient lives i [facility] which is quite a distance to travel to and from [place]. We would ideally arran ge cardiac follow [...] (HCC) 15) Candidal intertrigo Tyrone Adrian MD [facility] 14C assistant boys track coach Division of Hospital Medicine Department of Medicine [facility] [address] [place] [address] [facility] DEPARTMENT: Hosp- [id number] Place of Service: [facility] [id number] Date of Service: 11/15/2015 CSN: [id number] Modifiers:GC Resident Involved: Yes Suggested CPT: 42179 Subsequent Visit Detailed/High complexity 35 min lColleen goff - 016 6:33 AM PDT PHYSICIAN TRAINING PROJECT MANAGER STUDENT PROGRESS NOTE FOR EDUCATIONAL PURPOSES ONLY INPATIENT PROGRESS NOTE PATIENT INFORMATION Patient Name: Elzbieta Cristina Date of : 1975 Date of Admission: 11/06/2015 PCP: Fadi Goodrich DO Room/Bed: [facility]/08/08 Attending Provider: Tyrone Adrian MD Encounter [...] last 8 days Intake 9571.5 ml Output 73515 ml Net since Admission -99474.5 ml -25.938 L = 57.0636 lbs Constitutional: [...] q 4hrs PRN pain # AMARA Untreated AAMRA. Could not obtain prior sleep studies. No [...] - topiramate 200mg po bid JEFFREY Gee-S2 [facility] PA Student Feeding: <2L fluid, Diabetic diet, >2g na Analgesia: APAP, gabapentin, hydrocodone Thromboembolic prophylaxis: Heparin/warfarin Glycemic control: moderate ISS Mobility: Encourage walking and movement Discharge: Expect hospital stay another 3-5 days with diuresis until more euvolemic and R h eart cath can be completed. Code status: FULL Associated attestation - [place], Yosef Pryor - 11/15/2015 2:59 PM PD[facility] Dara [...] can Yosef Segovia MD PGY-1 Internal Medicine [id number] Tyrone Adrian MD - 11/14/2015 4:16 PM [...] (HCC) 15) Candidal intertrigo Tyrone Adrian MD [facility] 14C assistant boys track coach Division of Hospital Medicine Department of Medicine [address] [place] [address] [facility] DEPARTMENT: Hosp- [id number] Place of Service: Date of Service: 11/14/2015 CSN: [id number] Modifiers:GC Resident Involved: Yes Suggested CPT: 37523 Subsequent Visit Exp Prob Foc/Mod Complexity 25 min olleen Diamond - 016 6:42 AM PDT PHYSICIAN TRAINING PROJECT MANAGER STUDENT PROGRESS NOTE FOR EDUCATIONAL PURPOSES ONLY [...] - topiramate 200mg po bid JEFFREY Gee-S2 [facility] PA Student Feeding: <2L fluid, [...] outpatient Yosef Segovia MD PGY-1 Internal Medicine [id number] Tyrone Adrian MD - 11/13/2015 4:06 PM PDTINPATIENT FACULTY PROGRESS NOTE - GM 1 Author; Tyrone Adrian MD Attending Physician: yTrone Adrian MD Hospital Day: 7 PCP: Fadi [...] (HCC) 15) Candidal intertrigo Tyrone Adrian MD [facility] 14C assistant boys track coach Division of Hospital Medicine Department of Medicine [facility] [place] [address] [place] [address] [facility] DEPARTMENT: Hosp- [id number] Place of Service: [facility] Date of Service: 11/13/2015 CSN: [id number] Modifiers:GC Resident Involved: Yes Suggested CPT: 93788 Subsequent Visit Detailed/High complexity 35 min lfelixsColleen - 016 6:36 AM PDT PHYSICIAN TRAINING PROJECT MANAGER STUDENT PROGRESS NOTE FOR EDUCATIONAL PURPOSES ONLY [...] - topiramate 200mg po bid JEFFREY Gee-S2 [facility] PA Student Feeding: <2L fluid, [...] VTE. Yosef Segovia MD PGY-1 Internal Medicine [id number] Tyrone Adrian MD - 11/12/2015 1:59 PM [...] 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, J ANIMAL LABORATORY TECHNICIAN, at this point not definitive Plan: continue [...] ongoing 12) Candidal intertrigo Tyrone Adrian MD [facility] 14C assistant boys track coach Division of Hospital Medicine Department of Medicine [facility] [address] [place] [address] [facility] DEPARTMENT: Hosp- [id number] Place of Service: - Date of Service: 11/12/2015 CSN: [id number] Modifiers:GC Resident Involved: Yes Suggested CPT: 54071 Subsequent Visit Detailed/High complexity 35 min lColleen goff - 016 6:31 AM PDT PHYSICIAN TRAINING PROJECT MANAGER STUDENT PROGRESS NOTE FOR EDUCATIONAL PURPOSES ONLY INPATIENT PROGRESS NOTE PATIENT INFORMATION Patient Name: Elzbieta Cristina Date of : 1975 Date of Admission: 11/06/2015 PCP: Fadi Goodrich DO Room/Bed: [facility]/ Attending Provider: Mannie Larkin MD Encounter Information [...] - topiramate 200mg po bid JEFFREY Gee-S2 [facility] PA Student Feeding: <2L fluid, [...] disease. Yosef Segovia MD PGY-1 Internal Medicine [id number] Mannie Larkin MD - 11/11/2015 9:19 PM [...] diuresis then [facility]HC Mannie Larkin MD Clinical Credit Collections Clerk, Internal Medicine Pager [phone] ristalColleen martines - 10/25 6:40 AM PDT PHYSICIAN TRAINING PROJECT MANAGER STUDENT PROGRESS NOTE FOR EDUCATIONAL PURPOSES ONLY [...] - topiramate 200mg po bid JEFFREY Gee-S2 [facility] PA Student Feeding: <2L fluid, [...] pain Yosef Segovia MD PGY-1 Internal Medicine [id number] Maria Eugenia Leiva RCP - 11/11/2015 6:39 [...] another 5-7 days Mannie Larkin MD Clinical Credit Collections Clerk, Internal Medicine Pager [phone] Yosef Fang T - 7:24 AM PDT [...] plan. 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 In terms of AMARA - does not tolerate CPAP historically. Likely CPAP will be ve ry important for her going forward. Will try overnight oximetry here to assess severity. Discharge planning:Anticipate several days in house. I spent >35 min of which >50% was spent in counseling and coordination of care. Briana Perez MD [facility] Division of Hospital Medicine Grisel [...] Maker Primary Surrogate Decision Maker Katalina kim [phone] Advanced Directives Existence of Advanced Directive Reviewed: No- Has Interest (11/09/15 1022) Advanced Directives Reviewed Comments: I gave a copy of advance directives (11/09/15 1022) KRISHNA Huertas NP [facility] [address] [facility] [address] [place] [address] lfelixColleen martines - 6:41 AM PDT PHYSICIAN TRAINING PROJECT MANAGER STUDENT PROGRESS NOTE FOR EDUCATIONAL PURPOSES ONLY [...] of acute blood loss and anemia of brisket puller ela dz and thalassemia is less likely. [...] AM Yosef Segovia MD PGY-1 Internal Medicine [id number] Briana Perez MD - 11/08/2015 2:01 PM [...] and coordination of care. Briana Perez MD [facility] Division of Hospital Medicine ara Colleen - 11/08/2015 6:26 AM PDT PHYSICIAN TRAINING PROJECT MANAGER STUDENT PROGRESS NOTE FOR EDUCATIONAL PURPOSES ONLY [...] po bid (topamax, nerve pain) JEFFREY Gee-S2 [facility] PA Student Feeding: <2L fluid, [...] Hair Md, MSc Internal Medicine PGY2 Pager [phone] Kwadwo Freire - 11/07/2015 2:05 PM PDTTransthoracic [...] plan. Yosef Segovia MD PGY-1 Internal Medicine [id number] lfelixs Colleen - 016 8:43 AM PDT PHYSICIAN TRAINING PROJECT MANAGER STUDENT PROGRESS NOTE FOR EDUCATIONAL PURPOSES ONLY [...] perfusion. - consider US to evaluate liver (JWCT-oso-ksrbhtwcj fatty liver dz) and look for ascites. [...] and movement Code status: [facility] Plan of Treatment +--------+ [...] | | 2018 | Visit | | [address] | | | | | | [place], [place] | | | | | | [address] | | | | | | [phone] | | | | | | | [...] + + + | [facility] | [address] | [place], [place] | | | L[place]PEZ POINT OF CARE | [address] | [address] | | | TESTS | | | [...] + | [facility] | [address] | [place] [address] | | | SERVICES, CORE | LESLY [...] [facility] | [address] | [place] [address] | | | SERVICES, CORE | [address] [...] | [facility] | [address] | [place] [address] | | | SERVICES, LYDIA | LESLY [...] [facility] | [address] | [place], [place] | | | JUSTINE DAWN OF JAKY | [facility] | [address] | | | TESTS | | | [...] (H) | 60 - 99 mg/dL | [facility] - | | | GLUCOSE, [...] [facility] | [address] | [place], [place] | | | JUSTINE DAWN OF CARE | [address] | [address] | | | TESTS | | | [...] AMES | [address] | [place], [place] | | | JUSTINE DAWN OF JAKY | [facility] | [address] | | | TESTS | | | [...] [facility] | [address] | [place], [place] | | | JUSTINE DAWN OF JAKY | [facility] | [address] | | | TESTS | | | [...] (H) | 60 - 99 mg/dL | [facility] - | | | GLUCOSE, [...] [facility] | [address] | [place], [place] | | | JUSTINE DAWN OF CARE | [address] | [address] | | | TESTS | | | [...] [facility] | [address] | [place] [address] | | | SERVICES, CORE | LESLY [...] | + + + + + | [facility] | [address] | [place] [address] | | | SERVICES, CORE | [address] | | | + + + + + MAGNESIUM, PLASMA (11/20/2015 6:00 AM PDT) + +-------+ + + + | Component | Value | Ref Range | Performed | Pathologist | | | | | At | Signature | + +-------+ + + + | MAGNESIUM,P | 2.5 | 1.8 - 2.5 mg/dL | [facility] | | | LASMA | | | [...] | [facility] | [address] | [place] [address] | | | SERVICES, CORE [...] the MDRD equation recommended by the | [facility] | | National Kidney Disease [...] | + + + + + | [facility] | [address] | [place] [address] | | | SERVICES, CORE | LESLY [...] (H) | 60 - 99 mg/dL | [facility] - | | | GLUCOSE, [...] AMES | [address] | [place], [place] | | | JUSTINE DAWN OF CARE | [address] | [address] | | | TESTS | | | [...] [facility] | [address] | [place], [place] | | | JUSTINE DAWN OF CARE | [address] | [address] | | | TESTS | | | [...] | + + + + + | [facility] | [address] | [place] [address] | | | LYDIA RANGEL | LESLY [...] [facility] | [address] | [place] [address] | | | SERVICES, CORE | [address] [...] the MDRD equation recommended by the | [facility] | | National Kidney Disease Education Program. [...] | + + + + + | [facility] | [address] | [place] [address] | | | LYDIA RANGEL | LESLY [...] [facility] | [address] | [place], [place] | | | LÓPEZ POINT OF CARE | [address] | [address] | | | TESTS | | | [...] AMES | [address] | [place], [place] | | | JUSTINE DAWN OF CARE | [address] | [address] | | | TESTS | | | [...] [facility] | [address] | [place], [place] | | | JUSTINE DAWN OF CARE | [address] | [address] | | | TESTS | | | [...] - [facility] | [address] | [place], [place] | | | SHARON POINT OF CARE | [address] | [address] | | | TESTS | | | [...] N[facility]CHI ROBERTS | [address] | [place] [address] | | | LYDIA RANGEL | LESLY [...] [facility] | [address] | [place] [address] | | | SERVICES, LYDIA | LESLY [...] (H) | 60 - 99 mg/dL | [facility] - | | | GLUCOSE, [...] [facility] | [address] | [place], [place] | | | JUSTINE DAWN OF JAKY | [facility] | [address] | | | TESTS | | | [...] AMES | [address] | [place] | | | LÓPEZ POINT OF CARE | [address] | [address] | | | TESTS | | | [...] | [facility] | [address] [facility] [address] | [place] [address] | | | CLAIRE, CORE | LESLY [...] | + + + + + | [facility] | [address] | [place] [address] | | | SERVICES, LYDIA | LESLY [...] [facility] | [address] | [place] [address] | | | SERVICES, CORE | [address]ARK [...] the MDRD equation recommended by the | [facility] | | National Kidney Disease [...] | + + + + + | [facility] | [address] | [place] [address] | | | CLAIRE, LYDIA | LESLY [...] [facility] | [address] | [place], [place] | | | LÓPEZ POINT OF CARE | [address] | [address] | | | TESTS | | | [...] AMES | [address] | [place], [place] | | | JUSTINE DAWN OF JAKY | [address] | [address] | | | TESTS | | | [...] [facility] | [address] | [place], [place] | | | JUSTINE DAWN OF CARE | [address] | [address] | | | TESTS | | | [...] [facility] | [address] | [place], [place] | | | LÓPEZ POINT OF CARE | [address] | [address] | | | TESTS | | | | + + + + + INR (11/17/2015 5:39 AM PDT) + + + + + + | Component | Value | Ref Range | Performed | Pathologist | | | | | At | Signature | + + + + + + | INR | 2.07 (H) | 0.90 - 1.20 INR | [facility] | | | | | [...] [facility] | [address] | [place] [address] | | | SERVICES, LYDIA | [address] [...] | + + + + + | [facility] [employer] | [address] | [place] [address] | | | SERVICES, CORE | [address] [...] [facility] | [address] | [place] [address] | | | SERVICES, CORE | LESLY [...] [facility] | [address] | [place] [address] | | | SERVICES, LYDIA | LESLY [...] [facility] | [address] | [place] [address] | | | SERVICES, CORE | [address] [...] [facility] | [address] | [place] [address] | | | CLAIRE, LYDIA | LESLY [...] [facility] | [address] | [place], [place] | | | JUSTINE DAWN OF CARE | [facility] | [address] | | | TESTS | | | [...] AMES | [address] | [place], [place] | | | LÓPEZ POINT OF CARE | [address] | [address] | | | TESTS | | | [...] [facility] | [address] | [place] | | | JUSTINE DAWN OF CARE | [address] | [address] | | | TESTS | | | [...] | + + + + + | [facility] | [address] | [place] [address] | | | LYDIA RANGEL | LESLY [...] (H) | 60 - 99 mg/dL | [facility] - | | | GLUCOSE, [...] [facility] | [address] | [place], [place] | | | JUSTINE DAWN OF CARE | [address] | [address] | | | TESTS | | | [...] [facility] | [address] | [place] [address] | | | SERVICES, CORE | LESLY [...] | [facility] | [address] | [place] [address] | | | SERVICES, CORE | LESLY [...] + + | [facility] | [address] [facility] | [place] [address] | | | SERVICES, CORE | [address] [...] | + + + + + | [facility] | [address] | [place] [address] | | | CLAIRE, LYDIA | [address] [...] [facility] | [address] | [place], [place] | | | LÓPEZ POINT OF CARE | [address] | [address] | | | TESTS | | | [...] | + + + + + | [facility] | [address] | [place] [address] | | | SERVICES, CORE | LESLY [...] (H) | 60 - 99 mg/dL | [facility] - | | | GLUCOSE, [...] AMES | [address] | [place], [place] | | | JUSTINE DAWN OF JAKY | [address] | [address] | | | TESTS | | | [...] | + + + + + | [facility] [employer] | [address] | [place] [address] | | | LYDIA RANGEL | LESLY [...] - [facility] | [address] | [place], [place] | | | JUSTINE DAWN OF CARE | [facility] | [address] | | | TESTS | | | [...] (H) | 60 - 99 mg/dL | [facility] - | | | GLUCOSE, [...] AMES | [address] | [place] | | | LÓPEZ POINT OF CARE | [facility] | [address] | | | TESTS | | | [...] [facility] | [address] | [place] [address] | | | SERVICES, CORE | [address] [...] [facility] | [address] | [place] [address] | | | SERVICES, CORE | [address] [...] | [facility] | [address] [facility] [facility] [address] | [place] [address] | | | SERVICES, CORE | [address] | | | + + + + + MAGNESIUM, PLASMA (11/15/2015 5:49 AM PDT) + +-------+ + + + | Component | Value | Ref Range | Performed | Pathologist | | | | | At | Signature | + +-------+ + + + | MAGNESIUM,P | 2.2 | 1.8 - 2.5 mg/dL | [facility] | | | LASMA | | | [...] | + + + + + | [facility] | [address] | [place] [address] | | | SERVICES, CORE | PARK [...] [facility] | [address] | [place] [address] | | | SERVICES, CORE | LESLY [...] [facility] | [address] | [place], [place] | | | JUSTINE DAWN OF JAKY | [address] | [address] | | | TESTS | | | [...] [facility] | [address] | [place] [address] | | | LYDIA RANGEL | LESLY [...] (H) | 60 - 99 mg/dL | [facility] - | | | GLUCOSE, [...] [facility] | [address] | [place], [place] | | | JUSTINE DAWN OF CARE | [address] | [address] | | | TESTS | | | [...] [facility] | [address] | [place], [place] | | | JUSTINE DAWN OF JAKY | [facility] | [address] | | | TESTS | | | [...] | [facility] | [address] | [place] [address] | | | SERVICES, CORE | LESLY [...] [facility] | [address] | [place], [place] | | | LÓPEZ POINT OF [facility] | [address] | [address] | | | TESTS | | | [...] [facility] | [address] | [place] [address] | | | SERVICES, LYDIA | LESLY [...] | + + + + + | [facility] | [address] | [place] [address] | | | SERVICES, CORE | LESLY [...] [facility] | [address] | [place] [address] | | | LYDIA RANGEL | LESLY [...] [facility] | [address] | [place] [address] | | | SERVICES, CORE | LESLY [...] [facility] | [address] | [place] | | | [facility]WN [facility] CARE | [address] | [address] | | | TESTS | | | [...] - [facility] | [address] | [place], [place] | | | [facility] CARE | [address] | [address] | | | TESTS | | | [...] AMES | [address] | [place] | | | JSUTINE DAWN OF JAKY | [address] | [address] | | | TESTS | | | [...] [facility] | [address] | [place] | | | [facility]WN [facility] CARE | [address] | [address] | | | TESTS | | | [...] [facility] | [address] | [place] [address] | | | SERVICES, CORE | PARK [...] | [facility] | [address] [facility] | [place] [address] | | | SERVICES, CORE | PARK [...] | [facility] | [address] | [place] [address] | | | CLAIRE, LYDIA | LESLY [...] | + + + + + | [facility] | [address] | [place] [address] | | | CLAIRE, LYDIA | LESLY [...] [facility] | [address] | [place] [address] | | | SERVICES, CORE | PARK [...] the MDRD equation recommended by the | [facility] | | National Kidney Disease Education Program. [...] | + + + + + | [facility] | [address] | [place] [address] | | | LYDIA RANGEL | LESLY [...] [facility] | [address] | [place] [address] | | | SERVICES, CORE | PARK [...] the MDRD equation recommended by the | [facility] | | National Kidney Disease Education Program. [...] | + + + + + | [facility] | [address] | [place] [address] | | | CLAIRE, LYDIA | LESLY [...] [facility] | [address] | [place], [place] | | | [facility]WN [facility] JAKY | [address] | [address] | | | TESTS | | | [...] | [facility] | [address] | [place] | | | [facility] CARE | [address] | [address] | | | TESTS | | | [...] [facility] | [address] | [place] | | | L[place] POINT OF CARE | [address] | [address] | | | TESTS | | | [...] [facility] | [address] | [place] | | | LÓPEZ CAPULIN OF [facility] | [facility] | [address] | | | TESTS | | | [...] | [facility] | [address] | [place] [address] | | | SERVICES, CORE | PARK [...] | [facility] | [address] | [place] [address] | | | SERVICES, CORE | PARK [...] [facility] | [address] | [place] [address] | | | LYDAI RANGEL | LESLY [...] [facility] | [address] | [place] [address] | | | SERVICES, CORE | PARK [...] | | | POC | | | JUSITNE DAWN | | | | | | [...] + + | [facility] | [address] | [place] | | | [facility] CARE | [address] | [address] | | | TESTS | | | [...] [facility] | [address] | [place] [address] | | | SERVICES, CORE | LESLY [...] [facility] | [address] | [place] [address] | | | SERVICES, CORE | PARK [...] [facility] | [address] | [place] [address] | | | SERVICES, CORE | PARK [...] [facility] | [address] | [place] [address] | | | SERVICES, LYDIA | LESLY [...] [facility] | [address] | [place], [place] | | | [facility] CARE | [address] | [address] | | | TESTS | | | [...] (H) | 60 - 99 mg/dL | [facility] - | | | GLUCOSE, [...] [facility] | [address] | [place] | | | JUSTINE DAWN OF JAKY | [address] | [address] | | | TESTS | | | [...] | + + + + + | [employer] | [address] | [place] [address] | | | LYDIA RANGEL | LESLY [...] [facility] | [address] | [place] | | | [facility] CARE | [address] | [address] | | | TESTS | | | [...] [facility] | [address] | [place] [address] | | | SERVICES, CORE | PARK [...] | + + + + + | [facility] | [address] | [place] [address] | | | SERVICES, CORE | LESLY [...] | + + + + + | [facility] | [address] | [place] [address] | | | SERVICES, CORE | PARK [...] [facility] | [address] | [place] [address] | | | SERVICES, CORE | PARK [...] [facility] | [address] | [place], [place] | | | JUST[facility] DAWN OF JAKY | [address] | [address] | | | TESTS | | | [...] | + + + + + | [facility] | [address] | [place] [address] | | | LYDIA RANGEL | LESLY [...] [facility] | [address] | [place] | | | [facility] CARE | [address] | [address] | | | TESTS | | | [...] + | [facility] | [address] | [place] | | | L[place] POINT OF CARE | [address] | [address] | | | TESTS | | | [...] + | [facility] | [address] | [place] [address] | | | SERVICES, [facility] | [address] | [...] [facility] | [address] | [place] | | | L[place] POINT OF CARE | [address] | [address] | | | TESTS | | | [...] [facility] | [address] | [place] [address] | | | SERVICES, CORE | PARK [...] [facility] | [address] | [place] [address] | | | SERVICES, CORE | [address] | | | + + + + + MAGNESIUM, PLASMA (11/10/2015 4:05 AM PDT) + +-------+ + + + | Component | Value | Ref Range | Performed | Pathologist | | | | | At | Signature | + +-------+ + + + | MAGNESIUM,P | 2.2 | 1.8 - 2.5 mg/dL | [facility] | | | LASMA | [...] | + + + + + | [facility] | [address] | [place] [address] | | | SERVICES, CORE | PARK [...] | + + + + + | [facility] | [address] | [place] [address] | | | SERVICES, CORE | PARK [...] [facility] | [address] | [place] [address] | | | SERVICES, CORE | PARK [...] [facility] | [address] | [place] [address] | | | SERVICES, LYDIA | LESLY [...] (H) | 60 - 99 mg/dL | [facility] - | | | GLUCOSE, [...] [facility] | [address] | [place], [place] | | | JUSTINE DAWN OF JAKY | [facility] | [address] | | | TESTS | | | [...] [facility] | [address] | [place] | | | L[place]PEZ POINT OF CARE | [address] | [address] | | | TESTS | | | [...] and meds | | | Procedure location: Unit:[facility] Room: 13 Providers: PICC Nurse [...] | pause verifies correct patient, procedure, equipment, clinical support manager | | | and site/side [...] | area Cephalic vein. Catheter lot number: [id number] with a length of | | | [...] [facility] | [address] | [place] | | | L[place] POINT OF CARE | [address] | [address] | | | TESTS | | | [...] | + + + + + | [facility] | [address] | [place] [address] | | | LYDIA RANGEL | LESLY [...] (H) | 60 - 99 mg/dL | [facility] - | | | GLUCOSE, [...] [facility] | [address] | [place] | | | [facility] CARE | [address] | [address] | | | TESTS | | | [...] [facility] | [address] | [place] [address] | | | SERVICES, CORE | LESLY [...] | + + + + + | [facility] [employer] | [address] | [place] [address] | | | SERVICES, CORE | LESLY [...] [facility] | [address] | [place] [address] | | | SERVICES, CORE | PARK [...] | [facility] | [address] | [place] [address] | | | SERVICES, LYDIA | LESLY [...] [facility] | [address] | [place], [place] | | | JUSTINE DAWN OF JAKY | [facility] | [address] | | | TESTS | | | [...] (H) | 60 - 99 mg/dL | [facility] - | | | GLUCOSE, [...] + + + | [facility] | [address] | [place] | | | JUSTINE DAWN OF [facility] | [address] | [address] | | | TESTS | | | [...] [facility] | [address] | [place] [address] | | | SERVICES, CORE | PARK [...] [facility] | [address] | [place] [address] | | | SERVICES, CORE | LESLY [...] [facility] | [address] | [place] [address] | | | SERVICES, CORE | PARK [...] [facility] | [address] | [place] | | | [facility] CARE | [address] | [address] | | | TESTS | | | [...] [facility] | [address] | [place], [place] | | | [facility] CARE | [address] | [address] | | | TESTS | | | [...] (H) | 60 - 99 mg/dL | [facility] - | | | GLUCOSE, [...] + + + | [facility] | [address] | [place] | | | [facility] POINT OF CARE | [address] | [address] | | | TESTS | | | [...] | [facility] | [address] | [place] [address] | | | SERVICES, LYDIA | LESLY [...] [facility] | [address] | [place] [address] | | | CLAIRE, LYDIA | LESLY [...] | + + + + + | [facility] | [address] | [place] [address] | | | SERVICES, CORE | PARK [...] [facility] | [address] | [place] [address] | | | SERVICES, CORE | LESLY [...] [facility] | [address] | [place] [address] | | | LYDIA RANGEL | LESLY [...] the MDRD equation recommended by the | [facility] | | National Kidney Disease Education Program. [...] | [facility] | [address] | [place] [address] | | | SERVICES, CORE | PARK [...] | + + + + + | [facility] [employer] | [address] | [place] [address] | | | SERVICES, LYDIA | LESLY [...] [facility] | [address] | [place] | | | JUSTINE DAWN OF [facility] | [address] | [address] | | | TESTS | | | [...] | + + + + + | [facility] | [address] | [place] [address] | | | SERVICES, CORE | LESLY [...] [facility] | [address] | [place] | | | L[place] POINT OF CARE | [address] | [address] | | | TESTS | | | [...] [facility] | [address] | [place] | | | L[place] POINT OF CARE | [address] | [address] | | | TESTS | | | [...] | + + + + + | [facility] | [address] | [place], [place] | | | CARDIOLOGY | [address] | [address] | | + + + + + CAPILLARY BLOOD GLUCOSE (NO CHG), POC (11/07/2015 12:26 PM PDT) + +---------+ + + + | Component | Value | Ref Range | Performed | Pathologist | | | | | At | Signature | + +---------+ + + + | BLOOD | 164 (H) | 60 - 99 mg/dL | [facility] - | | | GLUCOSE, [...] [facility] | [address] | [place] | | | L[place]PEZ CAPULIN OF [facility] | [address] | [address] | | | TESTS | | | [...] the MDRD equation recommended by the | [facility] | | National Kidney Disease Education Program. [...] [facility] | [address] | [place] [address] | | | SERVICES, CORE | [address] | | | + + + + + INR (11/07/2015 10:36 AM PDT) + +-------+ + + + | Component | Value | Ref Range | Performed | Pathologist | | | | | At | Signature | + +-------+ + + + | INR | 1.14 | 0.90 - 1.20 INR | [facility] | | | | | | LABORATORY [...] [facility] | [address] | [place] [address] | | | SERVICES, CORE | PARK [...] [facility] | [address] | [place] [address] | | | LYDIA RANGEL | LESLY [...] [facility] | [address] | [place] | | | JUSITNE DAWN OF CARE | [address] | [address] | | | TESTS | | | [...] [facility] | [address] | [place] [address] | | | SERVICES, CORE | LESLY [...] [facility] | [address] | [place] [address] | | | SERVICES, CORE | LESLY [...] [facility] | [address] | [place] [address] | | | SERVICES, CORE | PARK [...] | [facility] | [address] | [place] [address] | | | SERVICES, CORE | LESLY [...] [facility] | 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 | [place], [place] | | | JUSTINE DAWN OF JAKY | [facility] | [address] | | | TESTS | | | [...] [facility] | [address] | [place] | | | L[place] POINT OF CARE | [address] | [address] | | | TESTS | | | [...] | [facility] | [address] | [place] [address] | | | SERVICES, CORE | LESLY [...] DEPT OF | [address] | [place], [place] | | | CARDIOLOGY | [address] | [address] | | + + + + + [...] [facility] | [address] | [place] [address] | | | SERVICES, CORE | PARK [...] | + + + + + | [facility] | [address] | [place] [address] | | | SERVICES, CORE | LESLY [...] | [facility] | [address] | [place] [address] | | | SERVICES, CORE | PARK [...] [facility] | [address] | [place] [address] | | | SERVICES, CORE | [address] | | | + + + + + ED INFORMATION EXCHANGE (11/06/2015 1:26 PM PDT) + + + + + + | Component | Value | Ref Range | Performed | Pathologist | | | | | At | Signature | + + + + + + | [facility] | [id number] | | [facility] | | | | [id number] | | MEDICAL | | | | [...] | ---- 11/06/2015 | | | 13:25 [facility] Emergency | | | [address]. Referral; Cellulitis 09/28/2015 15:39 [facility] | | | Hospital Emergency [...] -Pain in left lower leg 09/13/2015 14:54 [facility] | | | Hospital Emergency [...] | | | | | -Other intermediate card tender (current) | | | drug therapy | | | -Allergy status | | | to penicillin ED VISIT COUNT (1 YR.) Visits Location | | | ------ --------- 1 [facility] | | | [place] 9 [facility] 10 | | | Total Note: Visits indicate total known visits. | | | | | | --- | | + + + + + + + + | Performing | Address | City/State/Zipcode | Phone Number | | Organization | | | | + + + + + | [facility] | [address], | [place], [place] | [phone] | | [employer] | [address] | [address] | | + + + + + [...] | | oral, ONCE, 1 dose, [facility] 11/08/15 | | PM PDT | [...] | | | | ONCE, 1 dose, [place] 11/18/15 at 1745 | | PM PDT [...] | | | | ONCE, 1 dose, [facility] 11/13/15 at 0845 | | AM PDT [...] | | ONCE, 1 dose, [facility] 11/16/15 at 1730 | | PM PDT [...]
--- OUTSIDE RECORDS SUMMARY | ~2019-05-20 | XMS | Encounter Summary ---
Demographics + + + | Address | [address] | | | [place] [address] | + + + | Home Phone [...] + | Katalina Padilla | ECON | [address] | | | | | [place], [place] | | | | | [address] | | + + + + + | Ellie Vang | ECON | Unknown | | + + + + + Care Team Providers + +------+ + | Care Hand Lacer Name | Role | Phone | + [...] | | | | | Procedures | [place], [place] | | | | | | TRANSTHORACI | [address] | | | | | | C | Phone: | | | | | | ECHOCARDIOGR | [phone] | | | | | | AM, ADULT | Fax: | | | | | | | [phone] | | +--------+--------+ + + + + [...] | 2016 | Visit | Preventive at [facility] | MD Deion Farris | exertion) (Primary | | | | Deion Farris Avyesenia | [place], [place] | Dx) | | | | Mailcode: CH9A | [address] | | | | | [facility] | [phone] | | | | | and Erick, | | | | | | [address] | | | | | | [place], [place] | | | | | | [address] | | | | | | [phone] | | | +--------+---------+ + + + [...] 500 mg by mouth once daily. CALCIUM [id number]-[id number]-GENIS ORAL Take 1 tablet by mouth two [...] himself to the local hospit al in [place] and so this has been delayed. ROS: [...] to lose the additional [facility]. This current weight [...] | | | | | [place], [place] | | | | | | [address] | | | | | | [phone] | | | | | | | [...]
--- OUTSIDE RECORDS SUMMARY | ~2019-05-20 | XMS | Encounter Summary ---
Demographics + + + | Address | [address] | | | [place] [address] | + + + | Home Phone [...] [place], [place] | | | | | [address] | | + + + + + | Ellie Vang | ECON | Unknown | | + + + + + Care Team Providers + +------+ + | Care Studio Owner Name | Role | Phone | + [...] | | Alma Delia Mailcode: CH4S | [facility] | | | | | [facility] | [place], [place] | | | | | and Healing, | [address] | | | | | [place] [address] [address] | [phone] | | | | | Floor [place], [place] | | | | | | [address] | | | | | | [phone] | | | +--------+ + + + [...] | | | | | [place], [place] | | | | | | [address] | | | | | | [phone] | | | | | | | | +--------+ + + + + | 07/08/ | Procedure | Surgery | | | | 2019 | Pass | | | | +--------+ + + + + documented as of this encounter Visit Diagnoses Not on filedocumented in this encounter"
--- OUTSIDE RECORDS SUMMARY | ~2019-05-20 | XMS | Encounter Summary ---
Demographics + + + | Address | [address] | | | [place] [address] | + + + | Home Phone [...] [place], [place] | | | | | [address] | | + + + + + | Ellie Vang | ECON | Unknown | | + + + + + Care Team Providers + +------+ + | Care Multiple Effect Evaporator Operator Name | Role | Phone | [...] Center at [facility] [address] | TIMERS INSPECTOR [address] | | | | | [address] | [facility] [address] | | | | | Mailcode: Center | [place], [place] | | | | | Health and | [address] | | | | | [facility] | [phone] | | | | | [place], [place] | | | | | | [address] | | | | | | [phone] | | | +--------+ + + + [...] | | 2018 | Visit | | [address] | | | | | | [place], [place] | | | | | | [address] | | | | | | [phone] | | | | | | | | +--------+ + + + + | 07/08/ | Procedure | Surgery | | | | 2018 | Pass | | | | +--------+ + + + + documented as of this encounter Visit Diagnoses Not on filedocumented in this encounter"
--- OUTSIDE RECORDS SUMMARY | ~2019-05-20 | XMS | Encounter Summary ---
Demographics + + + | Address | [address] | | | [place] [address] | + + + | Home Phone [...] [place], [place] | | | | | [address] | | + + + + + | Ellie Vang | ECON | Unknown | | + + + + + Care Team Providers + +------+ + | Care Filter Tip Catcher Name | Role | Phone | [...] | | | | | | | [place] [facility] | | | | | | | [facility] and | | | | | | | Healing, | | | | | | | [address] | | | | | | | [place], [place] | | | | | | | [address] | | | | | | | Phone: | | | | | | | [phone] | | | | | | | Fax: | | | | | | | [phone] | +--------+--------+ + + + + Encounter [...] | | [address] | Ave [place], [place] | adult (HCC) (Primary | | | | Mailcode: Center | [address] | Dx); Vitamin D | | | | for Health and | | deficiency disease; | | | | Healing, [address] | | Intertriginous | | | | [place], [place] | | candidiasis; | | | | [address] | | Diabetes mellitus | | | [...] will arrange 8. Nephrology Consult: Please call [facility] ([phone]) and have them send you a urine [...] at the same time: betsy Feldman RN, [facility]- Nurse Practitioner for Bariatric Surgery [facility] | [address] | [place] | [address] | Potential Contraindications to Bariatric Surgery Age [...] INITIAL VISIT Provider: Shereen Pinto DNP, DANIELLEP, SUPERSONIC ENGINEER Referring Provider: Dr. Fadi Goodrich, [place] [address] [phone] Reason for Requested Consultation: Initial evaluation for bariatric surgery. Elzbieta Farooq is interested in Frandy en y alfredo tomeka bypass. The pt is here With her sister. Following surgery her mother and sister will care for her, she will Stay in [place] after surgery so that she is close by. She lives in [place]. They have few stairs to get into [...] recently gained weight, she met with our drilling contractor today, she has been making poor food [...] none Use of Redux or Phen/fen: no Baptist or cultural reason you would refuse blood [...] the therapy. 8. Nephrology Consult: Please call [facility] ([phone]) and have them send you a urine [...] You will need a referral to a social media sr strategy manager If your level is elevated. 9. See [...] soon as possible Shereen Pinto DNP ACNP, SUPERSONIC ENGINEER Nurse Practitioner for Bariatric Surgery [facility] | [address] | [place], [place] | [address] | Potential Contraindications to Bariatric Surgery Age [...] | | | | | [place], [place] | | | | | | [address] | | | | | | [phone] | | | | | | | [...] at | | | | | | [email or web address] Test | | | | | | developed and | | | | | | characteristics | | | | | | determined by | | | | | | [facility]. See | | | | | | Compliance Statement B: | | | | | | [email or web address] | | | | | | by [employer],[address] | | | | | | [address], [facility] [place] | | | | | | [id number] | | | | | | [phone]. | | | | | | com, [...] at | | | | | | [employer] [facility] | | | | | | developed and | | | | | | characteristics | | | | | | determined by | | | | | | [facility] [facility]. See | | | | | | Compliance Statement B: | | | | | | [place]/CS | | | | + + + + + + + + | Specimen | + + | Blood - Blood | + + + + + + + | Performing | Address | City/State/Zipcode | Phone Number | | Organization | | | | + + + + + | [facility] | [address] | [place], [place] | | | [place] | | [address] | | + + + + + [...]
--- OUTSIDE RECORDS SUMMARY | ~2019-05-20 | XMS | Encounter Summary ---
[...] [place], [place] | | | | | [address] | | + + + + + | Ellie Vang | ECON | Unknown | | + + + + + Care Team Providers + +------+ + | Care Director Mission Name | Role | Phone | + [...] | | | 2014 | Event | [facility] | MD Raza [address] | | | | | Admitting Desk | [address] | | | | | Located on the 9 | [place], [place] | | | | | floor [address] | [address] | | | | | [address] | [phone] | | | | | [place], [place] | | | | | | [address] | Marcial Brunner CRNA | | | | | | [address] | | | | | | Lesly Gutiérrez [place], | | | | | | [place] [address] | | | | | | [phone] | | | | | | | [...] | | 2018 | Visit | | [address] | | | | | | [place], [place] | | | | | | [address] | | | | | | [phone] | | | | | | | [...]
--- OUTSIDE RECORDS SUMMARY | ~2019-05-20 | XMS | Encounter Summary ---
Demographics + + + | Address | [address] | | | [place] [address] | + + + | Home Phone [...] [place], [place] | | | | | [address] | | + + + + + | Ellie Vang | ECON | Unknown | | + + + + + Care Team Providers + +------+ + | Care Radio Control Crane Operator Name | Role | Phone [...] | 2018 | Encounter | Lab at [facility] [address] | ACNP [address] | | | | | [address] [place] Mailcode: | [place], [place] | | | | | [facility] | [address] | | | | | Health and Healing, | [phone] | | | | | [address] | | | | | | Floor [place], [place] | | | | | | [address] | | | | | | [phone] | | | +--------+ + + + [...] | | 0 | | | | [id number]&NXI-[id number] | mouth two times | | | [...] | | 2018 | Visit | | [address] | | | | | | [place], [place] | | | | | | [address] | | | | | | [phone] | | | | | | | [...] + + + | EXAM: Esophagram with dye tank tender radiograph HISTORY: RYGB 03/01/2018, | [facility] | | vomiting/pain ever since COMPARISON: 04/27/2018 CT TECHNIQUE: | RADIOLOGY VOICE | | Waste Management Recycling Technician radiograph was performed. Single contrast exam of the esophagus, | RECOGNITION 2 | | gastric pouch, and gastrojejunostomy in upright positioning. | | | Radiation dose reduction technique was maximized where appropriate | | | using pulsed fluoroscopy and fluoro-store images. Fluoro Time 57 | | | second(s) FINDINGS: Waste Management Recycling Technician shows stone in the upper pole of [...] Note | + + | Service Account, [employer] Res In Interface - 06/07/2018 11:18 AM PST EXAM: Esophagram | | with dye tank tender radiograph HISTORY: RYGB 03/01/2018, vomiting/pain ever since COMPARISON: | | 04/27/2018 CT TECHNIQUE: Waste Management Recycling Technician radiograph was performed. Single contrast exam of the | | esophagus, gastric pouch, and gastrojejunostomy in upright positioning. Radiation dose | | reduction technique was maximized where appropriate using pulsed fluoroscopy and | | fluoro-store images. Fluoro Time 57 second(s) FINDINGS:Waste Management Recycling Technician shows stone in the upper | | [...]
--- OUTSIDE RECORDS SUMMARY | ~2019-05-20 | XMS | Encounter Summary ---
Demographics + + + | Address | [address] | | | [place] [address] | + + + | Home Phone [...] [place], [place] | | | | | [address] | | + + + + + | lElie Vang | ECON | Unknown | | + + + + + Care Team Providers + +------+ + | Care Director Of Materials Name | Role | Phone | + +------+ + | Fadi Goodrich DO | PCP | | + +------+ + Encounter Details +--------+ + + + + | Date | Type | Department | Care Team | Description | +--------+ + + + + | 10/19/ | Abstract | Digestive Health | Clinic, Surgery | | | 2017 | | [place] [facility] [address] | | | | | | [address] | | | | | | Mailcode: [place] | | | | | | [facility] Health and | | | | | | [facility] | | | | | | [place], [place] | | | | | | [address] | | | | | | [phone] | | | +--------+ + + + [...] | 06/30/ | Office | Cardiology | Ranedll Franks, | | | 2019 | Visit | | [address] | | | | | | [place], [place] | | | | | | [address] | | | | | | [phone] | | | | | | | | +--------+ + + + + | 07/08/ | Procedure | Surgery | | | | 2019 | Pass | | | | +--------+ + + + + documented as of this encounter Visit Diagnoses Not on filedocumented in this encounter"
--- OUTSIDE RECORDS SUMMARY | ~2019-05-20 | XMS | Encounter Summary ---
Demographics + + + | Address | [address] | | | [place] [address] | + + + | Home Phone [...] [place], [place] | | | | | [address] | | + + + + + | Ellie Vang | ECON | Unknown | | + + + + + Care Team Providers + +------+ + | Care Blade Boner Name | Role | Phone | + [...] Diabetes & | Morbid | Kathy Feliciano, APPLICATION SECURITY CONSULTANT | [address] | | | | Metabolism | obesity | [address] | [address] | | | | | ([facility]) | [address], | [address] | | | | | Procedures | [address] | Physician's | | | | | CONSULT TO | [place], [place] | Pavilion | | | | | ENDO | [address] | Physician's | | | | | [address] | Phone: | Pavilion | | | | | [address] | [phone] | [place], [place] | | | | | | Fax: | [address] | | | | | | [phone] | Phone: | | | | | | | [phone] | | | | | | | Fax: | | | | | | | [phone] | +--------+--------+ + + + + Encounter Details +--------+ + + + + | Date | Type | Department | Care Team | Description | +--------+ + + + + | 11/15/ | Documentati | Digestive Health | Kathy Feldman, | | | 2012 | on | Center at [facility] [address] | APPLICATION SECURITY CONSULTANT [address] | | | | | [address] | [facility] 350 | | | | | Mailcode: Center | [place], [place] | | | | | [facility] Health and | [address] | | | | | [facility] 2 | [phone] | | | | | [place], [place] | | | | | | [address] | | | | | | [phone] | | | +--------+ + + + [...] | | 2018 | Visit | | [address] | | | | | | [place], [place] | | | | | | [address] | | | | | | [phone] | | | | | | | [...]
--- OUTSIDE RECORDS SUMMARY | ~2019-05-20 | XMS | Encounter Summary ---
Demographics + + + | Address | [address] | | | [place] [address] | + + + | Home Phone [...] [place], [place] | | | | | [address] | | + + + + + | Ellie Vang | ECON | Unknown | | + + + + + Care Team Providers + +------+ + | Care Die Cast Technician Name | Role | Phone | [...] at [facility] [address] | [facility] [address] | | | | | [address] | [place], [place] | | | | | Mailcode: Center | [address] | | | | | for Health and | | | | | | [place] [address] | | | | | | [place], [place] | | | | | | [address] | | | | | | [phone] | | | +--------+ + + + [...] | | | | | [place], [place] | | | | | | [address] | | | | | | [phone] | | | | | | | | +--------+ + + + + | 07/08/ | Procedure | Surgery | | | | 2018 | Pass | | | | +--------+ + + + + documented as of this encounter Visit Diagnoses Not on filedocumented in this encounter"
--- OUTSIDE RECORDS SUMMARY | ~2019-05-20 | XMS | Encounter Summary ---
Demographics + + + | Address | [address] | | | [place] [address] | + + + | Home Phone [...] [place], [place] | | | | | [address] | | + + + + + | Ellie Vang | ECON | Unknown | | + + + + + Care Team Providers + +------+ + | Care Goldbeater Name | Role | Phone | + +------+ + PCP | Unavailable | + +------+ + Encounter Details +--------+ + + + + | Date | Type | Department | Care Team | Description | +--------+ + + + + | 05/13/ | Results | | Other, Faculty | | | 1992 | Only | | [phone] | | +--------+ + + + + [...] | | 2019 | Visit | | [address] | | | | | | [place], [place] | | | | | | [address] | | | | | | [phone] | | | | | | | [...] | | + +---------+ + + | [facility] DEPARTMENT OF | | [...] | | + +---------+ + + | [facility] DEPARTMENT OF | | [...] | | | | | | | [id number] SCAN OF | | | | | [...] | | + +---------+ + + | [facility] DEPARTMENT OF | | | | | RADIOLOGY | | | | + +---------+ + + documented in this encounter Visit Diagnoses Not on filedocumented in this encounter"
--- OUTSIDE RECORDS SUMMARY | ~2019-05-20 | XMS | Encounter Summary ---
Demographics + + + | Address | [address] | | | [place] [address] | + + + | Home Phone [...] [place], [place] | | | | | [address] | | + + + + + | Ellie Vang | ECON | Unknown | | + + + + + Care Team Providers + +------+ + | Care Senior Applications Engineer Name | Role | Phone | + +------+ + | Fadi Goodrich DO | PCP | | + +------+ + Encounter Details +--------+ + + + + | Date | Type | Department | Care Team | Description | +--------+ + + + + | 06/17/ | Abstract | Digestive Health | Shereen Georges, | | | 2012 | | Center at [facility] [address] | ACNP [address] | | | | | [address] | Ave [place], [place] | | | | | Mailcode: [place] | [address] | | | | | for Health and | | | | | | [facility] 2 | | | | | | [facility] [place] | | | | | | [address] | | | | | | | [...] | | 2018 | Visit | | [address] | | | | | | [place], [place] | | | | | | [address] | | | | | | [phone] | | | | | | | | +--------+ + + + + | 07/08/ | Procedure | Surgery | | | | 2019 | Pass | | | | +--------+ + + + + documented as of this encounter Visit Diagnoses Not on filedocumented in this encounter"
--- OUTSIDE RECORDS SUMMARY | ~2019-05-20 | XMS | Clinical Summary ---
Demographics + + + | Address | [address] | | | [place] [address] | + + + | Home Phone [...] + | Author | [facility] (Historical as of | | | 03-12-19) | + + + | Organization | [facility] (Historical as of | | | 03-12-19) [...] Team Providers + +------+ + | Care Pen Tester Name | Role | Phone | [...] | | | Activ | | (DRISDOL) [id number] | mouth twice a week. | | [...] | obesity, she is enrolled in the [facility] bariatric program. She has | | lost [...] Recent | | admission to [facility] for 100lb weight | | gain- DC on diuresis on 03/06/2016- she feel improvedShe was on | | Metolazone and Torsemide prior to hospitalization- both have | | better bioavailability than lasix in gut edema but she retained | | 100lbs - how ever she is currently on only Torsemide 100mg Q12hrs | | started in [place] and her weight been stable sinceShe has no | | other complaints.She is pending to see NephrologistCiriloo | | 02/16/2016([facility] Normal LV systolic function, mildly | | [...] Dylan Romero Date of : 1975 | [facility] | | Performing Physician: Darryl Merrill | [...] MV A Jeffrey: 0.61 m/s MV Dec [place]: 2.43 m/s2 | | | MV DecT: 247.51 ms MV E Jeffrey: 0.60 m/s MV E/A Ratio: | | | 0.98 MV PHT: 71.78 ms MVA By PHT: 3.06 cm2 Septal e': | | | 0.06 m/s Septal E/e': 9.54 Lateral e': 0.10 m/s Lateral | | | E/e': 5.84 RAP: 5 mmHg RV s': 0.11 m/s Gun Stock Checker: | | | DH Authenticated by: Darryl [facility] Report Date/Time: 02-22-2019 | | | 20:8:36 | | + + + + --------+ | Procedure Note | + --------+ | Aditya, Rad Results In - 02/22/2019 8:10 PM PDT Patient Name: Sherrell Romero | | : 1975Accession: [id number] Physician: Darryl | | Alsamara INDICATIONS------ | [...] cmLVIDd: 4.70 cmLVPWd: 0.79 cmLVOT Area: 3.58 [id number] Diam: 2.13 | | cm%FS: 39.25 %EF(Teich): [...] mlLAESV Index (A-L): 14.72 ml/m2LAAs A2C: 10.03 [id number] A-L A2C: 22.69 | | mlLALs A2C: 3.76 cmLAAs A4C: 13.41 bx8DIGHU A-L A4C: 36.80 mlLALs A4C: 4.14 | | cmRAAs: 11.18 [id number] A-L: 22.84 mlRAESV MOD: 22.10 mlRALs: 4.64 cmTAPSE: | | 2.04 cmAV maxP.55 mmHgAV meanP.52 mmHgAV Vmax: 1.27 m/Genesis Vmean: 0.88 | | m/Genesis VTI: 26.50 cmAVA Vmax: 2.49 cm2AVA (VTI): 2.39 [id number] Vmax: 0.00 | | cm2/m2AVAI (VTI): 0.00 cm2/m2LVOT maxP.17 mmHgLVOT meanP.82 mmHgLVSI Dopp: | | 30.83 ml/m2LVSV Dopp: 63.52 mlLVOT Vmax: 0.89 m/sLVOT Vmean: 0.65 m/sLVOT VTI: | | 17.71 cmMV A Jeffrey: 0.61 m/sMV Dec [place]: 2.43 m/s2MV DecT: 247.51 msMV E Jeffrey: | | 0.60 m/sMV E/A Ratio: 0.98 MV PHT: 71.78 msMVA By PHT: 3.06 th8Fioqzf e': 0.06 | | m/sSeptal E/e': 9.54 Lateral e': 0.10 m/sLateral E/e': 5.84 RAP: 5 mmHgRV s': | | 0.11 m/sSonographer: DHAuthenticated by: Darryl [facility] Date/Time: 02-22-2019 | | 20:8:36IMPRESSION:1. Overall [...] m/s | |AV VTI: 26.50 cm | |AADLID Vmax: 2.49 cm2 | |ADALID (VTI): 2.39 cm2 | |AVAI Vmax: 0.00 cm2/m2 | |AVAI (VTI): 0.00 cm2/m2 | |LVOT maxP.17 mmHg | |LVOT meanP.82 mmHg | |LVSI Dopp: 30.83 ml/m2 | |LVSV Dopp: 63.52 ml | |LVOT Vmax: 0.89 m/s | |LVOT Vmean: 0.65 m/s | |LVOT VTI: 17.71 cm | |MV A Jeffrey: 0.61 m/s | |MV Dec [place]: 2.43 m/s2 | |MV DecT: 247.51 ms | |MV E Jeffrey: 0.60 m/s | |MV E/A Ratio: 0.98 | |MV PHT: 71.78 ms | |MVA By PHT: 3.06 cm2 | |Septal e': 0.06 m/s | |Septal E/e': 9.54 | |Lateral e': 0.10 m/s | |Lateral E/e': 5.84 | |RAP: 5 mmHg | |RV s': 0.11 m/s | | | |Gun Stock Checker: | |Authenticated by: Darryl Merrill | |Report [...] [facility] | [address] | [place] [address] | | + + + + + [...] +------+-------+ + | MEDICAID | E[place]ER | [id number] | | | [address] | | | N | | | | [place] | | | [place] | | | | [address] | | | BANKING SPECIALIST | | | | | + +--------+ [...] | mireya | | | [address] | [address] | + +--------+ +--------+ + +
--- OUTSIDE RECORDS SUMMARY | ~2019-05-20 | XMS | Encounter Summary ---
Demographics + + + | Address | [address] | | | [place] [address] | + + + | Home Phone [...] [place], [place] | | | | | [address] | | + + + + + | Ellie Vang | ECON | Unknown | | + + + + + Care Team Providers + +------+ + | Care Clarifier Name | Role | Phone | + [...] 2014 | | Center at [facility] 1982 | [facility] [address] | Review (Pre-surgery | | | | [address] | Ave [place], [place] | meal plan. To be | | | | Mailcode: Center | [address] | provided to home | | | | for Health and | | health nurse. ) | | | | [facility] [address] | | | | | | [place], [place] | | | | | | [address] | | | | | | | [...] | | | | | [place], [place] | | | | | | [address] | | | | | | [phone] | | | | | | | | +--------+ + + + + | 07/08/ | Procedure | Surgery | | | | 2019 | Pass | | | | +--------+ + + + + documented as of this encounter Visit Diagnoses Not on filedocumented in this encounter"
--- OUTSIDE RECORDS SUMMARY | ~2019-05-20 | XMS | Encounter Summary ---
Demographics + + + | Address | [address] | | | [place] [address] | + + + | Home Phone [...] + | Katalina Padilla | ECON | [address] | | | | | [place], [place] | | | | | [address] | | + + + + + | Ellie Vang | ECON | Unknown | | + + + + + Care Team Providers + +------+ + | Care Pool Nurse Name | Role | Phone | + +------+ + | Fadi Goodrich DO | PCP | | + +------+ + Encounter Details +--------+------+ + + + | Date | Type | Department | Care Team | Description | +--------+------+ + + + | 10/12/ | Lab | Laboratory at [facility] | | | | 2019 | | [address] | | | | | | [place], [place] | | | | | | [address] | | | | | | [phone] | | | +--------+------+ + + + [...] | | 2019 | Visit | | [address] | | | | | | [place], [place] | | | | | | [address] | | | | | | [phone] | | | | | | | [...] + + + + + | [facility] | [address] | [place] [address] | | | SERVICES, [facility] | [address] | | | + [...] INTFC | | | | determined by [employer] | | | | | | Laboratories. See | | | | | | Compliance Statement B: | | | | | | [employer]/CSPerformed | | | | | | by [employer],[address] | | | | | | Liliana Martinez, [facility],[place] | | | | | | [address] | | | | | | [phone].[employer]. | | | | | | Ismael [...] [facility] | [address] | [place], [place] | | | UNIV PTH - INTFC | | [address] | | + + + + + [...] | | | | | determined by [facility] | | | | | | Laboratories. See | | | | | | Compliance Statement B: | | | | | | [employer]/CSPerformed | | | | | | by [employer],[address] | | | | | | Lil[facility],[place] | | | | | | [address] | | | | | | [phone].[employer] | | | | | | com, [...] [facility] | [address] | [place], [place] | | | UNIV PTH - INTFC | | [address] | | + + + + + [...] [facility] | | | (YEN NOAH) | [facility],[address] | | REG UNIV | | | SERUM | [facility], [facility],[place] | | PTH - INTFC | | | | [address] | | | | | | [phone].[employer]. | | | | | | [employer], Ismael Willis MD, | | | | [...] B: | | | | | | [employer]/ | | | | + + + + + + + + | Specimen | + + | Blood - Blood | | (substance) | + + + + + + + | Performing | Address | City/State/Zipcode | Phone Number | | Organization | | | | + + + + + | [facility] | [address] | [place], [place] | | | UNIV PTH - INTFC | | [address] | | + + + + + [...] [facility] | [address] | [place] [address] | | | SERVICES, CORE | PARK [...] + + + + + | [facility] | [address] | [place] [address] | | | SERVICES, LYDIA | [address] [...] INTERPRETIVE | 70 - 180 nmol/L | [facility] | | | WHOLE | [...] | | | | | determined by [facility] | | | | | | Laboratories. See | | | | | | Compliance Statement B: | | | | | | [employer] Website/CSPerformed | | | | | | by [employer],[address] | | | | | | Liliaan Martinez [facility],[place] | | | | | | [address] | | | | | | [phone].[employer] | | | | | | com, [...] [facility] | [address] | [place], [place] | | | UNIV PTH - INTFC | | [address] | | + + + + + [...] [facility] | [address] | [place] [address] | | | SERVICES, CORE | [address] [...] | | | | | determined by [employer] | | | | | | Laboratories. See | | | | | | Compliance Statement B: | | | | | | [employer] Website/CSPerformed | | | | | | by [employer],[address] | | | | | | Liliana Martinez, [facility],[place] | | | | | | [address] | | | | | | [phone].[employer] | | | | | | comIsmael [...] [facility] | [address] | [place], [place] | | | UNIV PTH - INTFC | | [address] | | + + + + + [...] [facility] | [address] | [place] [address] | | | SERVICES, CORE | PARK [...] + + + + | [facility] | [address] | [place] [address] | | | SERVICES, SPECIAL | [address] [...] + + + + + | [facility] | [address] | [place] [address] | | | SERVICES, CORE | [address] [...] at | | | | | | www.[employer] Website/csPerfor | | | | | | med by [facility] | | | | | | Sergo,Henok [address] | | | | | | [place] [address] | | | | | | [phone].[employer] | | | | | | [facility] childrenIsmael MD, | | | | | | [...] [facility] | [address] | [place], [place] | | | UNIV PTH - INTFC | | [address] | | + + + + + [...] + + + + + | [facility] | [address] | [place] [address] | | | SERVICES, CORE | [address] | | | + + + + + documented in this encounter Visit Diagnoses Not on filedocumented in this encounter"
--- OUTSIDE RECORDS SUMMARY | ~2019-05-20 | XMS | Encounter Summary ---
Demographics + + + | Address | [address] | | | [place] [address] | + + + | Home Phone [...] + | Katalina Padilla | ECON | [address] | | | | | [place], [place] | | | | | [address] | | + + + + + | Ellie Vang | ECON | Unknown | | + + + + + Care Team Providers + +------+ + | Care Container Finishing Inspector Name | Role | Phone | + +------+ + | Fadi Goodrich DO | PCP | | + +------+ + Encounter Details +--------+ + + + + | Date | Type | Department | Care Team | Description | +--------+ + + + + | 03/28/ | Abstract | Cardiology | Randell Franks, | | | 2014 | | Preventive at [facility] | MD [address] | | | | | [address] | Ave [place], [place] | | | | | Mailcode: CH9A | [address] | | | | | [facility] | [phone] | | | | | and Healing, | | | | | | [address] | | | | | | [place], [place] | | | | | | [address] | | | | | | [phone] | | | +--------+ + + + [...] | 2019 | Visit | | [address] | | | | | | [place], [place] | | | | | | [address] | | | | | | [phone] | | | | | | | | +--------+ + + + + | 07/08/ | Procedure | Surgery | | | | 2019 | Pass | | | | +--------+ + + + + documented as of this encounter Visit Diagnoses Not on filedocumented in this encounter"
--- OUTSIDE RECORDS SUMMARY | ~2019-05-20 | XMS | Encounter Summary ---
Demographics + + + | Address | [address] | | | [place] [address] | + + + | Home Phone [...] [place], [place] | | | | | [address] | | + + + + + | Ellie Vang | ECON | Unknown | | + + + + + Care Team Providers + +------+ + | Care Shift Coordinator Name | Role | Phone | [...] | | Surgery | Diagnoses | | Sherrill, | | | | | Ventral | Chilo, | MD Jones | | | | | hernia | MD Jones | [address] | | | | | without | [address] | [place] | | | | | obstruction | [address] | [address] [place], | | | | | or gangrene | Rd | [place] | | | | | Procedures | [place], [place] | [address] | | | | | REQUEST TO | [address] | Phone: | | | | | SURGERY | Phone: | [phone] | | | | | TRANSPORTATION ECONOMICS TEACHER | [phone] | Fax: | | | | | | Fax: | [phone] | | | | | | [phone] | | +--------+--------+ + + + + [...] 2019 | Visit | Center at [address] | MD Jones [address] | without obstruction | | | | [address] | [facility] [address] | or gangrene (Primary | | | | Mailcode: Center | [place], [place] | Dx) | | | | for Health and | [address] | | | | | Healing, Building 2 | [phone] | | | | | [place], [place] | | | | | | [address] | | | | | | [phone] | | | +--------+---------+ + + + [...] (1?2 cup) 6.5 Avocado 1?2 fruit 2.1 Lucama sprouts, cooked 125 mL (1?2 cup) 2.0 Figs, dried 60 mL (1?4 cup) 1.9 [place] 1 medium 1.8 Sweet Potato, cooked, without [...] 1.3 Eggplant 125 mL (1?2 cup) 1.3 Stanly, with skin 1 medium 1.0-1.3 Peas, green, cooked 125 mL (1?2 cup) 0.8-1.3 Carrot, cooked John 125 mL (1?2 cup) 1?2 fruit 1.1-1.2 0.7-1.1 Grapefruit 1?2 fruit 0.7-1.1 Prunes, dried 3 1.1 [place], with skin 2 fruits 1.1 Apricots, dried [...] Bread, rye 35 g (1 slice) 0.6-1.0 [place] bread crackers 3 crackers 0.9 Raisin bran [...] of Soluble Fiber [email or web address] PATIENT SURGERY INFORMATION [facility] General Surgery Office Toll-free: ext [phone] Surgery Date: Monday, July 08, [address]: Main [facility] Procedure: recurrent ventral hernia repair Surgeon Name: Dr. Jones Tiwari DIRECTIONS FOR SURGERY TO PREPARE FOR SURGERY - If you are able, walk every day for at least 30 minutes. - Follow up: Phone pre-operative medicine clinic call to be completed within 30 days of [facility]. This call appointment will be scheduled with you by a heel turner. You will receive a ca ll within [...] ease call the General Surgery Office at [phone] for [id number]. Check-in on the day of surgery is at the Admitting Department [facility]. DIET Nothing to eat or drink [...] the surgery. Please see the list below, [facility] has a list of products that [...] contact our office . Products Containing Aspirin Yuki-Rochester, Anacin, Anexsia with Codeine, Andynos, Aspirin, Aspirin suppositories, Ascrip tin, Aspergum, Axotal, B-A-C, Baby Aspirin, Lucila, BC Powder, Bexophene, Buffaprin, Bufferin , Buffinol, Cama-Arthritis Strength, Congespirin, [place], Coricidin, Damason, Darvon, Dristan, Kalani-Gesic, Digel, Dolprin #3 Tablets, Donatab, Doxaphene, Duragesic, Easprin, Ecotrin, Emag rin Forte, Emiprin, Emprazil, Equagesic, Equazine M, Excedrin, Fiogesic, Fiorgen PH, Fiorice t, Fiorinal, 4-Way Cold Tablet, Gemnisyn, Indocin, Liquprin, Lortab ASA, Magnaprin, Marnal, Meprobamate, Midol, Momentum, Norgesic, [place], Orphengesic, Pabalate, P-A-C, Percodan, Pre salin, Robaxasil, Roxiprin, Saleto, Salocol, SK-65 Compound, Sine-Aid, Sine-Off, Bertie, Supac, Talwin Compound, Trigesic, Tolectin, Traiminicin, Vanquish, ZORprin, Zomax Products Containing Ibuprofen Advil, Aleve, Haltran, Medipren, Midol, Motrin, Naproxyn, Nuprin, Rufen Herbal Medications Ephedra: discontinue 24 hours before surgery Garlic: discontinue 7 days prior to surgery Ginkgo: discontinue 36 hours prior to surgery Ginseng: discontinue 7 days prior to surgery Kava: discontinue 24 hours prior to surgery Sawmills s Wort: discontinue 5 days prior to surgery Valerian: discontinue several weeks prior to surgery Other Products Which May Promote Bleeding Vitamin E, Gingko Biloba, Marine Fatty Acids, [place]-3 Fish Oil Supplement PRE-OP BATHING/SHOWER INSTRUCTIONS with [facility] Bathe or shower the evening before [...] loss of tissue. Check out the free [place] Quit Line - The Quit Line is open 24 hours a day, seven days a we ek. The Quit Line is a telephone and web-based counseling service to help [place]ians quit us ing tobacco and nicotine products. .QUIT.NOW ( ) or www.quitnow.net/[place] PARKING Parking at the Hospital for patients and visitors is available in the [facility] Parking s tructure located across from the emergency department. Patient parking is available on level 1 and 3. Metered parking is available on the top level. Parking at [facility] is available in the building's parking structure. For additional parking options visit [email or web address]. TRANSPORTATION You will require transportation home on the day of discharge. Pain medications and physical activity restrictions may limit your ability to drive safely. CANCELLING YOUR PROCEDURE Please notify the general surgery office at [phone] as soon as possible should you nee [...] lost 100+ lbs! She last saw the [facility] team in 02/2019, at which [...] plans to see an ENT and a thermal spray operator for her symptoms in the near [...] or [facility] [address] [facility] [facility] Past Medical History: Diagnosis Date Abdominal [...] History Narrative Updated 11/09/15 She lives in [place] with her mother and her sister (also her caregiver) lives in an apa rtment/duplex below. She has 2 grandchildren (age 4 and 7) who live with her daughter and son-in-law Her boyfriend lives in [place] HFpEF, DM2, HTN, Sleep Apnea (unable to [...] program here and refer her to our customer acquisition specialist who also has expertise in physical [...] daily. BELBUCA 600 mcg buccal film CALCIUM CRB&TVT-E6-VAR90-GENIS ORAL Take 2 tablets by mouth two [...] morbid obesity s/p laparoscopic anteocolic RYGB (03/01/2018); [facility] e this operation, she has lost 100+ [...] by Gadiel Yi . JONES TIWARI MD [facility] AT [facility] [address] [facility] Mailcode: [place] [address] I spent 31 minutes with [...] [place] | | | | | | [address] | | | | | | [phone] | | | | | | | [...]
--- OUTSIDE RECORDS SUMMARY | ~2019-05-20 | XMS | Encounter Summary ---
Demographics + + + | Address | [address] | | | [place] [address] | + + + | Home Phone [...] [place], [place] | | | | | [address] | | + + + + + | Ellie Vang | ECON | Unknown | | + + + + + Care Team Providers + +------+ + | Care Bioinformatics Computer Scientist Name | Role | Phone | [...] 2015 | | Preventive at [facility] | [address] | (phentermine 37.5 mg | | | | [address] | [facility] [place] | ) | | | | Mailcode: [place] | [address] | | | | | [facility] | [phone] | | | | | and [place], | | | | | | Building 1 | | | | | | [place], [place] | | | | | | [address] | | | | | | [phone] | | | +--------+--------+ + + + [...] | | | | | [address] [place], [place] | | | | | | [address] | | | | | | [phone] | | | | | | | | +--------+ + + + + | 07/08/ | Procedure | Surgery | | | | 2019 | Pass | | | | +--------+ + + + + documented as of this encounter Visit Diagnoses Not on filedocumented in this encounter"
--- OUTSIDE RECORDS SUMMARY | ~2019-05-20 | XMS | Encounter Summary ---
Demographics + + + | Address | [address] | | | [place] [address] | + + + | Home Phone [...] [place], [place] | | | | | [address] | | + + + + + | Ellie Vang | ECON | Unknown | | + + + + + Care Team Providers + +------+ + | Care Rotary Dryer Operator Name | Role | Phone [...] | Pain | Diagnoses | [place], | Director Of Scout Work Psych | | | | Management | Morbid | Shereen Murcia ACNP | [address] | | | | | obesity with | [address] | | | | | BMI of [address] | [address] | Mailcode: | | | | | and over, | [place], [place] | [address] | | | | | adult ([facility]) | [address] | for Health | | | | | Procedures | Phone: | and Healing, | | | | | CONSULT TO | [phone] | Building 1, | | | | | PAIN | Fax: | 15th Floor | | | | | MANAGEMENT | [phone] | [place], [place] | | | | | [place] | | [address] | | | | | PSYCHIATRIC | | Phone: | | | | | DIAGNOSTIC | | [phone] | | | | | EVAL, NO MED | | Fax: | | | | | [facility] [place] | | [phone] | | | | | PSYCH TSTNG | | | | | | | PSYCH/PHYS | | | +--------+---------+ + + + + Encounter Details +--------+---------+ + + + | Date | Type | Department | Care Team | Description | +--------+---------+ + + + | 10/02/ | Office | [facility] | Leslie Mistry, | Morbid obesity | | 2018 | Visit | 15th Floor [address] | PhD [address] [facility] | ([facility]); Bipolar | | | | Brenton Flannery Mailcode: | [address] | affective disorder, | | | | [facility] Center for | [place], [place] | remission status | | | | Health and Healing, | [address] | unspecified ([facility]); | | | | | [phone] | BMI 60.0-69.9, adult | | | | Floor [place], [place] | | ([facility]); Anxiety | | | | [address] | | | | | | [phone] | | | +--------+---------+ + + + [...] Name: Elzbieta Cristina : 1975 Medical Record: [id number] Age: 42 y.o. Weight today, per patient report: 305 lbs Weight on 09/11/17: 389, BMI 73.54 Identifying Information: Elzbieta Cristina is a 42 y.o. female who lives with her mother in [place], [place]. She was referred for psychological evaluation [...] of cereal with skim milk and a filipino yogurt L: white bread and cheese and [...] laundry. For enjoym ent the patient watches [employer] with her girlfriend. She is socially active [...] Social History: Elzbieta Cristina was born in [place] and lived with her mother and sister. [...] time I spent was approximately 60 minutes ewwp-jt-iadt with the patient and approxima tely 2 hours of ofr-rmpi-og-face testing, interpreting and synthesizing results. Leslie Mistry, PhD Clinical Psychologist [facility] [address] [place] [address] and [facility], 15th [place] [address] [id number] signed by Leslie Mistry, PhD at 10/08/2017 [...] | | | | | [place], [place] | | | | | | [address] | | | | | | [phone] | | | | | | | [...] | Bipolar affective disorder, remission status unspecified ([facility]) | + + | BMI 60.0-69.9, adult ([facility]) Body Mass Index 60.0-69.9, adult | + + | Anxiety Anxiety state, unspecified | + + documented in this encounter
--- OUTSIDE RECORDS SUMMARY | ~2019-05-20 | XMS | Encounter Summary ---
Demographics + + + | Address | [address] | | | [place] [address] | + + + | Home Phone [...] [place], [place] | | | | | [address] | | + + + + + | Ellie Vang | ECON | Unknown | | + + + + + Care Team Providers + +------+ + | Care Professor Of Forest Planning Name | Role | Phone | [...] | 2016 | on | Center at [place] [address] | | | | | | [address] | | | | | | Mailcode: [place] | | | | | | for Health and | | | | | | [facility] 2 | | | | | | [place], [place] | | | | | | [address] | | | | | | [phone] | | | +--------+ + + + [...] | | 2019 | Visit | | [address] | | | | | | [place], [place] | | | | | | [address] | | | | | | [phone] | | | | | | | | +--------+ + + + + | 07/08/ | Procedure | Surgery | | | | 2019 | Pass | | | | +--------+ + + + + documented as of this encounter Visit Diagnoses Not on filedocumented in this encounter"
--- OUTSIDE RECORDS SUMMARY | ~2019-05-20 | XMS | Encounter Summary ---
Demographics + + + | Address | [address] | | | [place] [address] | + + + | Home Phone [...] + | Katalina Padilla | ECON | [address] | | | | | [place], [place] | | | | | [address] | | + + + + + | Ellie Vang | ECON | Unknown | | + + + + + Care Team Providers + +------+ + | Care Manager Of Manufacturing Name | Role | Phone | + [...] | | | | | | [place] [address] | | | +--------+ + + + [...] | | | | | [address] [place], [place] | | | | | | [address] | | | | | | [phone] | | | | | | | | +--------+ + + + + | 07/08/ | Procedure | Surgery | | | | 2018 | Pass | | | | +--------+ + + + + documented as of this encounter Visit Diagnoses Not on filedocumented in this encounter"
--- OUTSIDE RECORDS SUMMARY | ~2019-05-20 | XMS | Encounter Summary ---
Demographics + + + | Address | [address] | | | [place] [address] | + + + | Home Phone [...] [place], [place] | | | | | [address] | | + + + + + | Ellie Vang | ECON | Unknown | | + + + + + Care Team Providers + +------+ + | Care Transport Coordinator Name | Role | Phone | [...] | | 2018 | Visit | | [address] | | | | | | [place], [place] | | | | | | [address] | | | | | | [phone] | | | | | | | | +--------+ + + + + | 07/08/ | Procedure | Surgery | | | | 2018 | Pass | | | | +--------+ + + + + documented as of this encounter Visit Diagnoses Not on filedocumented in this encounter"
--- OUTSIDE RECORDS SUMMARY | ~2019-05-20 | XMS | Encounter Summary ---
Demographics + + + | Address | [address] | | | [place] [address] | + + + | Home Phone [...] [place], [place] | | | | | [address] | | + + + + + | Ellie Vang | ECON | Unknown | | + + + + + Care Team Providers + +------+ + | Care Claims Administrator Name | Role | Phone | [...] | | | | | | [place] [address] | | | +--------+ + + + [...] | | | | | [place], [place] | | | | | | [address] | | | | | | [phone] | | | | | | | | +--------+ + + + + | 07/08/ | Procedure | Surgery | | | | 2018 | Pass | | | | +--------+ + + + + documented as of this encounter Visit Diagnoses Not on filedocumented in this encounter"
--- OUTSIDE RECORDS SUMMARY | ~2019-05-20 | XMS | Encounter Summary ---
Demographics + + + | Address | [address] | | | [place] [address] | + + + | Home Phone [...] [place], [place] | | | | | [address] | | + + + + + | Ellie Vang | ECON | Unknown | | + + + + + Care Team Providers + +------+ + | Care Sales Relationship Manager Name | Role | Phone | + +------+ + | Fadi Goodrich DO | PCP | | + +------+ + Encounter Details +--------+ + + + + | Date | Type | Department | Care Team | Description | +--------+ + + + + | 08/16/ | Abstract | Digestive Health | Kathy Feldman, | | | 2013 | | Center at [facility] [address] | NEW ACCOUNTS CLERK [address] | | | | | [address] | [facility] [address] | | | | | Mailcode: Center | [place], [place] | | | | | [facility] Health and | [address] | | | | | [facility] 2 | [phone] | | | | | [place], [place] | | | | | | [address] | | | | | | [phone] | | | +--------+ + + + [...] | | 2018 | Visit | | [address] | | | | | | [place], [place] | | | | | | [address] | | | | | | [phone] | | | | | | | | +--------+ + + + + | 07/08/ | Procedure | Surgery | | | | 2018 | Pass | | | | +--------+ + + + + documented as of this encounter Visit Diagnoses Not on filedocumented in this encounter"
--- OUTSIDE RECORDS SUMMARY | ~2019-05-20 | XMS | Encounter Summary ---
Demographics + + + | Address | [address] | | | [place] [address] | + + + | Home Phone [...] [place], [place] | | | | | [address] | | + + + + + | Ellie Vang | ECON | Unknown | | + + + + + Care Team Providers + +------+ + | Care Riprap Man Name | Role | Phone | [...] + + | 01/01/ | Emergency | [facility] | Fide Hester | | | 2017 - | | Department [address] | MD Raza [address] | | | | | [address] | [address] | | | 01/02/ | | [facility] | [place], [place] | | | 2017 | | [place], [place] | [address] | | | | | [address] | [phone] | | | | | [phone] | | | | | | | Jaime Yee, | | | | | | ANP [address] | | | | | | [facility] [address] | | | | | | [place], [place] | | | | | | [address] | | | | | | [phone] | | | | | | | | | | | | Sheree Aguiar MD | | | | | | [address] | | | | | | [place], [place] | | | | | | [address] | | | | | | | | | | | | Felix Cardoza, | | | | | | LEAN ENGINEER [address] | | | | | | [facility] [address] | | | | | | [place], [place] | | | | | | [address] | | | | | | [phone] | | | | | | | [...] ready for discharge. Thank you for choosing [facility] for your healthcare needs. Abdominal Hernia Repair: [...] living will and a durable power of transactional attorney for health care. Bring a copy [...] apply lotions, perfume s, deodorants, or nail bolivian. Do not shave the surgical site yourself. [...] driving, and getting back to your [facility] routine. When should you call your [...] Repair: Before Your Surgery", log into your [employer] a ccount at [email or web address]. You can enter U288 in the "[employer] Library" search box . Not on [employer]? Review the [employer] section of your After Visit Summary for directions on anjel aguero to sign up. Current as of: March 04, 2016 Content Version: 11.2 7034-2770 Léa [employer]. Care instructions adapted under license by [facility]. If you have questions about a medical condition or this instr uction, always ask your healthcare professional. ALTHIA disclaims any curly anty or liability for [...] changes in the way you eat. An display specialist to help you be more active [...] Prepare for Weight-Loss Surgery", log into your [employer] account at [email or web address]. You can enter C413 in the "[place] [employer] Library" s earch box. Not on [employer]? Review the [employer] section of your After Visit Summary for directions on anjel aguero to sign up. Current as of: May 08, 2016 Content Version: 11.2 7036-4877 ALTHIA. Care instructions adapted under license by [facility] & [facility]. If you have questions about a medical condition or this instr uction, always ask your healthcare professional. ALTHIA disclaims any curly anty or liability for [...] | | 0 | | | | CRB&VAY-Q4-FOZ40-GEN | mouth two times | | | [...] Ball MD - 01/02/2017 7:49 AM PDT [facility] DEPARTMENT OF SURGERY EMERGENCY GENERAL SURGERY Division [...] wall hernias, laci hobbs was flown from [place] with abdominal pain from a recurrent, reducible [...] uss with Dr. Moore. Mary Ball MD [id number] [facility] [employer] [facility] [employer] A [address] [place] [address] documented in this en counter Plan of [...] | | 2018 | Visit | | [address] | | | | | | [place], [place] | | | | | | [address] | | | | | | [phone] | | | | | | | [...] [facility] | [address] | [place], [place] | | | L[place]PEZ POINT OF CARE | [address] | [address] | | | TESTS | | | [...] the MDRD equation recommended by the | LASU | | National Kidney Disease Education Program. [...] REHAB LABORATORY | [address] | [place] [address] | | | LYDIA RANGEL | CLARENCE [...] [facility] | [address] | [place], [place] | | | LÓPEZ POINT OF CARE | [facility] | [address] | | | TESTS | | | [...] | [facility] | [address] | [place] [address] | | | SERVICES, CORE | PARK [...] + + | [facility] | [address] | [place] [address] | | | SERVICES, CORE | CLARENCE [...] | + + + + + | [employer] - AIRPORT - | [address] | [place] [address] | | | [place] | | | | + + + [...] [facility] | [address] | [place] [address] | | | SERVICES, CORE | CLARENCE [...] | | | | | | JUSTINE DWAN | | [...] + + + | [facility] | [address] | [place], [place] | | | LÓPEZ POINT OF CARE | [address] | [address] | | | TESTS | | | [...] [facility] | [address] | [place] [address] | | | SERVICES, | [address] [...] | + + + + + | [employer] [facility] | [address] | [place] [address] | | | SERVICES, | [address] [...] | [facility] | [address] | [place] [address] | | | SERVICES, CORE | PARK [...] REHAB LABORATORY | [address] | [place] [address] | | | SERVICES, CORE | PARK [...] STATE HOS[facility] | [address] | [place] [address] | | | LYDIA RANGEL | [address] | | | + + + + + ED INFORMATION EXCHANGE (01/01/2017 8:22 AM PDT) + + + + + + | Component | Value | Ref Range | Performed | Pathologist | | | | | At | Signature | + + + + + + | [facility] | [id number] | [facility] | | | | [id number] | | MEDICAL | | | | [...] ---- | | | RADHA GOODRICH at [facility] | | | [facility] Unknown Primary Care | | | Unknown - Current Radha Goodrich DO | | | [phone] Primary Care | | | Unknown - Current | | + + + + + + + + | Performing | Address | City/State/Zipcode | Phone Number | | Organization | | | | + + + + + | [facility] | [address], | [place], [place] | [phone] | | [employer] | [address] | [address] | | + + + + + [...] | | | | | | | [facility] 01/01/17 at 2200, Until | | | | | | | Discontinued | | | | | | + +-------+ + +---+---------+ + +---+ | | | + +---+ | insulin lispro (HUMALOG) | | | injection subcutaneous, FOUR | | | TIMES DAILY, First dose on [facility] | | | 01/01/17 at 2200, Until | | | Discontinued | | + +---+ | | | + +---+ + +-------+ +--------+---+---+ | magnesium oxide (MAG-OX) tablet | Given | 01/03/20 | 400 mg | | | | 400 mg 400 mg, oral, DAILY, | | 17 8:51 | | | | | First dose on [facility] 01/01/17 at 1945, | | AM [...] | | | | ONCE, 1 dose, [facility] 01/01/17 at 0945 | | AM [...] | | | | First dose on [facility] 01/01/17 at 2100, | | AM [...]
--- OUTSIDE RECORDS SUMMARY | ~2019-05-20 | XMS | Encounter Summary ---
Demographics + + + | Address | [address] | | | [place] [address] | + + + | Home Phone [...] [place], [place] | | | | | [address] | | + + + + + | Ellie Vang | ECON | Unknown | | + + + + + Care Team Providers + +------+ + | Care Fuel System Maintenance Worker Name | Role | Phone | + +------+ + | Fadi Goodrich DO | PCP | | + +------+ + Encounter Details +--------+ + + + + | Date | Type | Department | Care Team | Description | +--------+ + + + + | 11/06/ | Abstract | Digestive Health | Shereen Georges, | | | 2015 | | Center at [facility] [address] | ACNP [address] | | | | | [address] | [place], [place] | | | | | Mailcode: [place] | [address] | | | | | for Health and | | | | | | [facility] 2 | | | | | | [facility] [place] | | | | | | [address] | | | | | | | [...] | | 2019 | Visit | | [address] | | | | | | [place] [facility] [place] | | | | | | [address] | | | | | | [phone] | | | | | | | | +--------+ + + + + | 07/08/ | Procedure | Surgery | | | | 2019 | Pass | | | | +--------+ + + + + documented as of this encounter Visit Diagnoses Not on filedocumented in this encounter"
--- OUTSIDE RECORDS SUMMARY | ~2019-05-20 | XMS | Encounter Summary ---
Demographics + + + | Address | [address] | | | [place] [address] | + + + | Home Phone [...] [place], [place] | | | | | [address] | | + + + + + | Ellie Vang | ECON | Unknown | | + + + + + Care Team Providers + +------+ + | Care Ring Sorter Name | Role | Phone | [...] on | Center at [facility] [address] | [place] [address] | | | | | [address] | [facility] [address] | | | | | Mailcode: Center | [place], [place] | | | | | [facility] and | [address] | | | | | [facility] 2 | [phone] | | | | | [place], [place] | | | | | | [address] | | | | | | [phone] | | | +--------+ + + + [...] | | 2018 | Visit | | [address] | | | | | | [place], [place] | | | | | | [address] | | | | | | [phone] | | | | | | | | +--------+ + + + + | 07/08/ | Procedure | Surgery | | | | 2019 | Pass | | | | +--------+ + + + + documented as of this encounter Visit Diagnoses Not on filedocumented in this encounter"
--- OUTSIDE RECORDS SUMMARY | ~2019-05-20 | XMS | Encounter Summary ---
Demographics + + + | Address | [address] | | | [place] [address] | + + + | Home Phone [...] [place], [place] | | | | | [address] | | + + + + + | Ellie Vang | ECON | Unknown | | + + + + + Care Team Providers + +------+ + | Care Silk Screen Printer Machine Name | Role | Phone | [...] | | 2019 | | Preventive at [facility] | [address] | re-test? ) | | | | [address] | [place], [place] | | | | | Mailcode: [place] | [address] | | | | | [facility] | [phone] | | | | | and [address], | | | | | | [address] | | | | | | [place], [place] | | | | | | [address] | | | | | | [phone] | | | +--------+ + + + [...] | | | | | [place], [place] | | | | | | [address] | | | | | | [phone] | | | | | | | [...]
--- OUTSIDE RECORDS SUMMARY | ~2019-05-20 | XMS | Encounter Summary ---
Demographics + + + | Address | [address] | | | [place] [address] | + + + | Home Phone [...] [place], [place] | | | | | [address] | | + + + + + | Ellie Vang | ECON | Unknown | | + + + + + Care Team Providers + +------+ + | Care Marshmallow Maker Name | Role | Phone | [...] | | 2019 | | Center at [facility] [address] | | Review | | | | [address] | | | | | | Mailcode: [place] | | | | | | [facility] Health and | | | | | | [facility] 2 | | | | | | [place], [place] | | | | | | [address] | | | | | | [phone] | | | +--------+ + + + [...] | | | | | [place], [place] | | | | | | [address] | | | | | | [phone] | | | | | | | | +--------+ + + + + | 07/08/ | Procedure | Surgery | | | | 2018 | Pass | | | | +--------+ + + + + documented as of this encounter Visit Diagnoses Not on filedocumented in this encounter"
--- OUTSIDE RECORDS SUMMARY | ~2019-05-20 | XMS | Encounter Summary ---
Demographics + + + | Address | [address] | | | [place] [address] | + + + | Home Phone [...] | Author | [facility] | | | and Jeffana | + + + | Organization | [facility] | | | and [...] Providers + +------+ + | Care Administrative Program Specialist Name | Role | Phone | [...] | Disease | Chronic | Karin, | [facility] | | | Required | | diastolic | PHARM[facility]Y [address] [address] | SLEEP | | | | | heart | [place]AL [place] | DISORDERS LAB | | | | | failure | DMITRI F | [address] | | | | | (HCC) | [place], [place] | [address] | | | | | History of | [address] | [place], [place] | | | | | sinus | Phone: | [address] | | | | | tachycardia | [phone] | Phone: | | | | | History of | Fax: | [phone] | | | | | bariatric | [phone] | Fax: | | | | | surgery | | [phone] | | | | | Sleep apnea [...] + + | 04/28/ | Office | [facility] | Sulema Altamirano | Chronic diastolic | | 2019 | Visit | CARDIOLOGY [place] | [address] | heart failure (HCC) | | | | [address] | [address] | (Primary Dx); | | | | [address] | [place] [address] | History of sinus | | | | [place], [place] | [phone] | tachycardia; History | | | | [address] | | of stroke; HTN, | | | | [phone] | | goal below 130/80; | | [...] have referred you to Dr. Rascon at [facility] , call [phone] for an appointment next week I made [...] dysfunction with previous dysfunctional RV treated at [facility] with diuresis and hospitalization for one month., sleep apnea treated with BiPAP, t ype II diabetes, hypothyroidism, morbid obesity with alveolar hypoventilation, Frandy-en-Y ga stric bypass surgery 02/2018, osteoarthritis,DVT and PE 2017, hypokalemia and hyperuricemia which is being followed by surtass analyst Dr. Fu, and SELINA Escobar. Her current [...] today that she never heard from the [place] [facility] providers to her sup posed [...] surgery, and weight down 123 pounds since [facility] 2018 when weighed 394 lbs. She brought [...] hypothyroidism,followed by Dr. Franks, endocrin ologist at [facility]) . Denies excessive thirst or hunger. Psychiatric/Behavioral: [...] knee pain and hernia pain Lives in [facility] ith her mother who smokes. . Sister is healthcare risk control consultant. Grandchildren ages 4 and 7 live with he r daughter and son-in-law. Disabled , on disability .01/24/2019: working with [employer] to get her own place. Outpatient Medications [...] film Suboxone 2 mg-0.5 mg sublingual film Psjkaxm-Yzwuzuedq-Bzlpbnd D (CITRACAL CALCIUM+D PO) Take 2 tablets [...] monohydrate/macrocrystals 100 m g capsule nystatin (NYSTATIN) 932929 UNIT/GM powder Nyamyc 100,000 unit/gram topical powder [...] Take 30 mg by mouth Daily. thyroid (DIGITAL CARTOGRAPHIC TECHNICIAN THYROID) 30 mg tablet DIGITAL CARTOGRAPHIC TECHNICIAN Thyroid 30 mg tablet TAKE ONE [...] Ascending aorta not well seen Echo: 02/16/2017: ([facility]): normal EF of 60-65% , accurate assessment of diastolic function i mpeded by poor tissue doppler, RV normal in size and function, with no significant valvular disease, and aortic root, ascending aorta , and aortic arch normal Echo: 01/02/2016 ([facility]): TDS, cardiac chamber dimensions grossly NML, LVEF >70%, rodriguez tolic function normal for patient. Unable to assess segmental wall motion. RV grossly norm al. Aortic valve sclerotic, no As/AI. Mitral and tricuspid valves grossly normal. Trace T R. No pericardial effusion VASCULAR TESTING AND PROCEDURES Left lower extremity DVT, presumed PE: 10/2015 [facility]. treated with heparin drip and Coumadin 10 in hospital, with Coumadin 6 months as outpatient, ASA 81 mg continued Venous US: right leg, 04/28/2016: No evidence of DVT. EKG EKG 10/27: ([facility]) Normal sinus rhythm. Normal EKG. Rate 93 bpm, TN 172 ms, QRS 90 ms, QTC 465 ms personally reviewed by me in the office today) EK02/05: Sinus tachycardia, otherwise normal. Rate 160 bpm, TN 174 ms, QRS 74 ms, QTC 451 ms (personally reviewed by me in the office today and no significant change seen fro m EKG done in October 2016 except for faster heart rate) EK04/26/2018: Normal sinus rhythm, rate 74 bpm, TN 182 ms, QRS 96 ms, QTC 472 ms, alexandru genao personally reviewed by me, and compared to previous EKG, heart rate is now better controll ed, otherwise similar morphology EK04/28/2019: Normal sinus rhythm, right axis. Rate 74 bpm, TN 170 ms, QRS 88 ms, QTC 45 [...] heard from the sleep providers at the [place] [facility] in [place], so I have referred her again to Dr. Rascon at the [facility], and she ne eds [...] past surgical history. Problem list. Maryse MARKS [facility] Cardiology 04/28/2019 documente d in this [...] | | | | | by [facility] [place] Read Only, | | | | | | [facility] ([id number]), | | | | | | digital editor Glen Alberto | | | | | | ([id number]) on 04/28/2019 | | | | | [...]
--- OUTSIDE RECORDS SUMMARY | ~2019-05-20 | XMS | Encounter Summary ---
Demographics + + + | Address | [address] | | | [place] [address] | + + + | Home Phone [...] [place], [place] | | | | | [address] | | + + + + + | Ellie Vang | ECON | Unknown | | + + + + + Care Team Providers + +------+ + | Care Custom Furrier Name | Role | Phone | + [...] | | | | | | [place] [address] | | | +--------+ + + + [...] | | | | [place], [place] | | | | | | [address] | | | | | | [phone] | | | | | | | | +--------+ + + + + | 07/08/ | Procedure | Surgery | | | | 2018 | Pass | | | | +--------+ + + + + documented as of this encounter Visit Diagnoses Not on filedocumented in this encounter"
--- OUTSIDE RECORDS SUMMARY | ~2019-05-20 | XMS | Encounter Summary ---
Demographics + + + | Address | [address] | | | [place] [address] | + + + | Home Phone [...] | Author | [facility] | | | and Jeffana | + + + | Organization | [facility] | [...] Team Providers + +------+ + | Care Fac Engineer Name | Role | Phone | + +------+ + | Kenyatta Cardenas MD | PCP | | + +------+ + Encounter Details +--------+ + + + + | Date | Type | Department | Care Team | Description | +--------+ + + + + | 02/17/ | Orders Only | [facility] | Provider, | Pure | | 2018 | | SYSTEM GENERIC OP | [address] | hyperglyceridemia; | | | | CONVERSION [address] | [address] | Hypokalemia; | | | | [address] [place], [place] | [place] [address] | Dehydration; | | | | [address] | | Hyperuricemia | | | | [phone] | | without signs of | | [...]
--- OUTSIDE RECORDS SUMMARY | ~2019-05-20 | XMS | Encounter Summary ---
Demographics + + + | Address | [address] | | | [place] [address] | + + + | Home Phone [...] [place], [place] | | | | | [address] | | + + + + + | Ellie Vang | ECON | Unknown | | + + + + + Care Team Providers + +------+ + | Care Grain Elevator Operator Name | Role | Phone | [...] Hospital | | | | | | [place], [place] | | | | | | [address] | | | | | | [phone] | | | +--------+ + + + [...] | | | | [place], [place] | | | | | | [address] | | | | | | [phone] | | | | | | | [...] | | | | | | Dr. oJrdan Birmingham. | | | | | | [...] | | | | navigated a #5.5 Ivorian | | | | | | Ozzy [...] | | | | | | a#5.5 Ivorian sheath was | | | | | | secured into place. In | | | | | | a similar fashion, | | | | | | a#7.0 Ivorian sheath was | | | | | [...] | | | | | The #7 Ivorian Brite | | | | | | [...]
--- OUTSIDE RECORDS SUMMARY | ~2019-05-20 | XMS | Encounter Summary ---
[...] [place], [place] | | | | | [address] | | + + + + + | Ellie Vang | ECON | Unknown | | + + + + + Care Team Providers + +------+ + | Care Senior Interactive Developer Name | Role | Phone | [...] [facility] [address] | [place], [place] | | | | | [place] Mailcode: | [address] | | | | | [facility] | [phone] | | | | | and [address], | | | | | | [address] | | | | | | [place], [place] | | | | | | [address] | | | | | | [phone] | | | +--------+ + + + [...] Discharge Instructions Instructions Keerthi Bernard RN - 04/07/2019[facility] Care Instructions after EGD (Upper Endos copy) [...] hours or on weekends and holiday Hospital Pharmacy District Manager toll free [phone]. [phone] and have the GI doctor vocational nursing instructor paged. The provider who performed your procedure: [...] | | 0 | | | | [id number]&PWT-H1-[id number]-GEN | mouth two times | | | [...] from the original. PRE PROCEDURE NOTE: MR# [id number] Subjective: Elzbieta Cristina is a 44 y.o. [...] | | 2018 | Visit | | [address] | | | | | | [place], [place] | | | | | | [address] | | | | | | [phone] | | | | | | | [...] + | MRN: | [facility] | | [id number] Date: 04/07/2019Patient Name: Elzbieta Curtis #: | ENDOSCOPY | | [id number] of : 1975CSN: [id number] Type: | | | AmbulatoryRoom: Endo 5Procedure: Upper GI | | | endoscopyIndications: Generalized abdominal pain, Nausea | | | with vomitingProviders: TAL LUND MD | | | (Doctor), KEERTHI BERNARD RN (Nurse), | | | EREN SLATER (Automatic Drill Operator)Referring MD: SYLVIA Kilpatrick | | | KENNY [...] | | | The Olympus [id number] Endoscope #[id number] | | | was introduced through the [...]
--- OUTSIDE RECORDS SUMMARY | ~2019-05-20 | XMS | Encounter Summary ---
Demographics + + + | Address | [address] | | | [place] [address] | + + + | Home Phone [...] + | Katalina Padilla | ECON | [address] | | | | | [place], [place] | | | | | [address] | | + + + + + | Ellie Vang | ECON | Unknown | | + + + + + Care Team Providers + +------+ + | Care Lever Tender Name | Role | Phone | [...] | | | | | (HCC) | [place], [place] | Mailcode: | | | | | Procedures | [address] | [address] [facility] | | | | | CT ABDOMEN & | Phone: | Hospital | | | | | [address] | | [place], [place] | | | | | IV CONTRAST | Fax: | [address] | | | | | MD CT | [phone] | Phone: | | | | | ABDOMEN&PELV | | [phone] | | | | | IS | | Fax: | | | | | W/CONTRAST | | [phone] | | | | | See chart [...] | | | | | | [facility] [address] | | | | | | | [address] | | | | | | | Mailcode: | | | | | | | [facility] | | | | | | | Health and | | | | | | | Healing, | | | | | | | Building [address] | | | | | | | [place], [place] | | | | | | | [address] | | | | | | | Phone: | | | | | | | [phone] | | | | | | | Fax: | | | | | | | [phone] | +--------+--------+ + + + + Encounter [...] | | [address] | Ave [place], [place] | obesity (HCC) | | | | Mailcode: [place] | [address] | | | | | for Health and | [phone] | | | | | [facility] 2 | | | | | | [place], [place] | | | | | | [address] | | | | | | [phone] | | | +--------+---------+ + + + [...] in th e air, Use a chairman president and chief executive officer.... And get it really dry. Then use corn starch ..... Then use medicated powder... Please go to the 3rd floor for the study... [place] [id number] documented in this encounter Progress Notes Shereen Pinto ACNP - 10/02/2014 11:14 AM PDTFormatting of this note might be different fro m the original. BARIATRIC INITIAL VISIT Provider: Shereen Pinto DNP, ACNP, PIANO SOUNDING BOARD MATCHER Referring Provider: Dr. Goodrich Reason for Requested [...] of the abdminal pain today, that her orsie s is so large she can't walk. [...] with the surgeon. Shereen Pinto DNP, ACNP, PIANO SOUNDING BOARD MATCHER Nurse Practitioner for Bariatric Surgery [facility] | [address] | [place], [place] | [address] | Potential Contraindications to Bariatric Surgery Age [...] other providers does not guarantee that the [facility] Bariatric Surger y program [...] | 2019 | Visit | | MD [address] | | | | | | [place], [place] | | | | | | [address] | | | | | | [phone] | | | | | | | [...]
--- OUTSIDE RECORDS SUMMARY | ~2019-05-20 | XMS | Encounter Summary ---
Demographics + + + | Address | [address] | | | [place] [address] | + + + | Home Phone [...] [place], [place] | | | | | [address] | | + + + + + | Ellie Vang | ECON | Unknown | | + + + + + Care Team Providers + +------+ + | Care Captain Airline Pilot Name | Role | Phone | [...] | | | 2017 | Event | [facility] | MD Jodie,PhD [address] | | | | | Admitting Desk | [address] | | | | | Located on the 9 | [facility] [place] | | | | | floor [address] | [address] | | | | | [address] | [phone] | | | | | [place], [place] | | | | | | [address] | Jason Balbuena | | | | | | MD Twin [address] | | | | | | [address] | | | | | | [place], [place] | | | | | | [address] | | | | | | [phone] | | | | | | | [...] | | | | | [place], [place] | | | | | | [address] | | | | | | [phone] | | | | | | | [...]
--- OUTSIDE RECORDS SUMMARY | ~2019-05-20 | XMS | Encounter Summary ---
Demographics + + + | Address | [address] | | | [place] [address] | + + + | Home Phone [...] + | Katalina Padilla | ECON | [address] | | | | | [place], [place] | | | | | [address] | | + + + + + | Ellie Vang | ECON | Unknown | | + + + + + Care Team Providers + +------+ + | Care Seal Delivery Vehicle Team Technician Name | Role | Phone [...] | | 2016 | | Preventive at [facility] | [address] | ([place]) | | | | [address] | Ave [place], [place] | | | | | Mailcode: [place] | [address] | | | | | [facility] | [phone] | | | | | and [address], | | | | | | [address] | | | | | | [place], [place] | | | | | | [address] | | | | | | [phone] | | | +--------+ + + + [...] | | | | | [place], [place] | | | | | | [address] | | | | | | [phone] | | | | | | | | +--------+ + + + + | 07/08/ | Procedure | Surgery | | | | 2018 | Pass | | | | +--------+ + + + + documented as of this encounter Visit Diagnoses Not on filedocumented in this encounter"
--- OUTSIDE RECORDS SUMMARY | ~2019-05-20 | XMS | Encounter Summary ---
Demographics + + + | Address | [address] | | | [place] [address] | + + + | Home Phone [...] [place], [place] | | | | | [address] | | + + + + + | Ellie Vang | ECON | Unknown | | + + + + + Care Team Providers + +------+ + | Care Child And Youth Program Assistant Name | Role | Phone | [...] | | | | | | | [place] for | | | | | | | Health and | | | | | | | Healing, | | | | | | | Building [address] | | | | | | | [place], [place] | | | | | | | [address] | | | | | | | Phone: | | | | | | | [phone] | | | | | | | Fax: | | | | | | | [phone] | +--------+--------+ + + + + Encounter [...] | [address] | Lesly Gutiérrez [place], | 2 diabetes mellitus | | | | Mailcode: Center | [place] [address] | (HCC) | | | | for Health and | | | | | | [facility] 2 | | | | | | [place], [place] | | | | | | [address] | | | | | | [phone] | | | +--------+---------+ + + + [...] of Visit: 12:29 to 12:57 (28 minutes eqzx-hh-fhfl with patient) SUBJECTIVE: Trying to follow a [...] post-surgery diet progression. 4. Call or send Stemgenthart message to dietitian with any questions. Contact information was provided. Follow up with dietitian prior to surgery to review post-surgical recommendations. Yuli Childs RD, CNSC, LD Pager# [phone] documented in this enco unter Plan of [...] | | 2018 | Visit | | [address] | | | | | | [place], [place] | | | | | | [address] | | | | | | [phone] | | | | | | | [...] | [place] MNT RE-ASSESSMNT | Routin | 08/28/2014 | [...]
--- OUTSIDE RECORDS SUMMARY | ~2019-05-20 | XMS | Encounter Summary ---
Demographics + + + | Address | [address] | | | [place] [address] | + + + | Home Phone [...] [place], [place] | | | | | [address] | | + + + + + | Ellie Vang | ECON | Unknown | | + + + + + Care Team Providers + +------+ + | Care Hotel Custodian Name | Role | Phone | + [...] | | 2019 | | Preventive at [facility] | [address] | (PHENTERMINE 37.5 mg | | | | [address] | [place], [place] | ) | | | | Mailcode: [place] | [address] | | | | | [facility] | [phone] | | | | | and [address], | | | | | | [address] | | | | | | [place], [place] | | | | | | [address] | | | | | | [phone] | | | +--------+--------+ + + + [...] | | 2018 | Visit | | [address] | | | | | | [place], [place] | | | | | | [address] | | | | | | [phone] | | | | | | | | +--------+ + + + + | 07/08/ | Procedure | Surgery | | | | 2018 | Pass | | | | +--------+ + + + + documented as of this encounter Visit Diagnoses Not on filedocumented in this encounter"
--- OUTSIDE RECORDS SUMMARY | ~2019-05-20 | XMS | Encounter Summary ---
Demographics + + + | Address | [address] | | | [place] [address] | + + + | Home Phone [...] [place], [place] | | | | | [address] | | + + + + + | Ellie Vang | ECON | Unknown | | + + + + + Care Team Providers + +------+ + | Care Surgical Assistant Certified Name | Role | Phone | + [...] | | 2016 | | Preventive at [facility] | MD [address] | | | | | [address] | Ave [place], [place] | | | | | Mailcode: CH9A | [address] | | | | | [facility] | [phone] | | | | | and Healing, | | | | | | [address] | | | | | | [facility] [place] | | | | | | [address] | | | | | | [phone] | | | +--------+ + + + [...] | | | | | [place], [place] | | | | | | [address] | | | | | | [phone] | | | | | | | | +--------+ + + + + | 07/08/ | Procedure | Surgery | | | | 2018 | Pass | | | | +--------+ + + + + documented as of this encounter Visit Diagnoses Not on filedocumented in this encounter"
--- OUTSIDE RECORDS SUMMARY | ~2019-05-20 | XMS | Encounter Summary ---
Demographics + + + | Address | [address] | | | [place] [address] | + + + | Home Phone [...] [place], [place] | | | | | [address] | | + + + + + | Ellie Vang | ECON | Unknown | | + + + + + Care Team Providers + +------+ + | Care Boiler Helper Name | Role | Phone | [...] | | | 2017 | Event | [facility] | Joann Person MD,PhD | | | | | Admitting Desk | [address] | | | | | Located on the 9 | [facility] [place] | | | | | floor [address] [facility] | [address] | | | | | [address] | [phone] | | | | | [place], [place] | | | | | | [address] | Graham Honeycutt, | | | | | | BIOLOGICAL SCIENCE TECHNICIAN FISH [address] | | | | | | [address] | | | | | | [place], [place] | | | | | | [address] | | | | | | [phone] | | | | | | | [...] | | Endotracheal Tube; 7; Oral; | BIOLOGICAL SCIENCE TECHNICIAN FISH | BIOLOGICAL SCIENCE TECHNICIAN FISH | | | Cuffed; 06/23/18; 1542 | [...] | | | | | [place], [place] | | | | | | [address] | | | | | | [phone] | | | | | | | [...] bed and dolores for RSI. Performed by BIOLOGICAL SCIENCE TECHNICIAN FISH | | | GRAHAM HONEYCUTT | | [...]
--- OUTSIDE RECORDS SUMMARY | ~2019-05-20 | XMS | Encounter Summary ---
Demographics + + + | Address | [address] | | | [place] [address] | + + + | Home Phone [...] + | Katalina Padilla | ECON | [address] | | | | | [place], [place] | | | | | [address] | | + + + + + | Ellie Vang | ECON | Unknown | | + + + + + Care Team Providers + +------+ + | Care Counselor Marriage And Family Name | Role | Phone | + [...] the | | | | | | [facility] [address] | | | | | | [address] [facility] | | | | | | [place], [place] | | | | | | [address] | | | +--------+ + + + [...] | | 2018 | Visit | | [address] | | | | | | [place], [place] | | | | | | [address] | | | | | | [phone] | | | | | | | | +--------+ + + + + | 07/08/ | Procedure | Surgery | | | | 2019 | Pass | | | | +--------+ + + + + documented as of this encounter Visit Diagnoses Not on filedocumented in this encounter"
--- OUTSIDE RECORDS SUMMARY | ~2019-05-20 | XMS | Encounter Summary ---
Demographics + + + | Address | [address] | | | [place] [address] | + + + | Home Phone [...] [place], [place] | | | | | [address] | | + + + + + | Ellie Vang | ECON | Unknown | | + + + + + Care Team Providers + +------+ + | Care Human Factors Ergonomist Name | Role | Phone | + [...] | | | | | | [place] [address] | | | +--------+ + + + [...] | | | | | [place], [place] | | | | | | [address] | | | | | | [phone] | | | | | | | | +--------+ + + + + | 07/08/ | Procedure | Surgery | | | | 2018 | Pass | | | | +--------+ + + + + documented as of this encounter Visit Diagnoses Not on filedocumented in this encounter"
--- OUTSIDE RECORDS SUMMARY | ~2019-05-20 | XMS | Encounter Summary ---
Demographics + + + | Address | [address] | | | [place] [address] | + + + | Home Phone [...] [place], [place] | | | | | [address] | | + + + + + | Ellie Vang | ECON | Unknown | | + + + + + Care Team Providers + +------+ + | Care Machine Stonecutter Name | Role | Phone | + [...] | | | | [facility]ly [facility] | | | | | | [place], [place] | | | | | | [address] | | | | | | [phone] | | | +--------+ + + + [...] | | | | | [place], [place] | | | | | | [address] | | | | | | [phone] | | | | | | | [...] [address] | | | | | | [address] | | | | | | | | | | | | [place] | | | | | | [address] | | | | | | DrRenee [...] | | | | artery. A 5.5 Egyptian | | | | | | Ozzy [...] | | + +---------+ + + | [facility] DEPARTMENT OF | | | | | RADIOLOGY | | | | + +---------+ + + documented in this encounter Visit Diagnoses Not on filedocumented in this encounter
--- OUTSIDE RECORDS SUMMARY | ~2019-05-20 | XMS | Encounter Summary ---
Demographics + + + | Address | [address] | | | [place] [address] | + + + | Home Phone [...] [place], [place] | | | | | [address] | | + + + + + | Ellie Vang | ECON | Unknown | | + + + + + Care Team Providers + +------+ + | Care Shotgun Shell Loading Machine Operator Name | Role | Phone [...] | | 2012 | | Center at [facility] [address] | ACNP [address] | | | | | [address] | Ave [place], [place] | | | | | Mailcode: [place] | [address] | | | | | for Health and | | | | | | [facility] 2 | | | | | | [facility] [place] | | | | | | [address] | | | | | | | [...] | | 2018 | Visit | | [address] | | | | | | [place], [place] | | | | | | [address] | | | | | | [phone] | | | | | | | | +--------+ + + + + | 07/08/ | Procedure | Surgery | | | | 2019 | Pass | | | | +--------+ + + + + documented as of this encounter Visit Diagnoses Not on filedocumented in this encounter"
--- OUTSIDE RECORDS SUMMARY | ~2019-05-20 | XMS | Encounter Summary ---
Demographics + + + | Address | [address] | | | [place] [address] | + + + | Home Phone [...] [place], [place] | | | | | [address] | | + + + + + | Ellie Vang | ECON | Unknown | | + + + + + Care Team Providers + +------+ + | Care Motor Carrier Inspector Name | Role | Phone | [...] Morbid | | 2018 | Visit | [place] [facility] | [address] | obesity ([facility]), BMI | | | | [address] | [address] | 88 (Primary Dx); | | | | Mailcode: [place] | [place], [place] | Type 2 diabetes | | | | [facility] and | [address] | mellitus without | | | | Healing, Building [address] | | complication, with | | | | [place], [place] | | long-term current | | | | [address] | | use of insulin | | | | [phone] | | ([facility]); S/P gastric | | | | | [...] Follow-Up Patient referred by: DO Vasyl Lewis [facility] [address] Documented time of visit: 1:30 to 2:00 (30 minutes lran-hd-neqp with patient) Surgery: Gastric Bypass Date of [...] multivitamin & mineral (with iron) supplement, 2/day -3964-7986 mg calcium citrate with vitamin D/day (take [...] in [address],LD Pager# [phone] Phone: [phone] documented in this e ncounter Plan of [...] | | | | [place], [place] | | | | | | [address] | | | | | | [phone] | | | | | | | [...] + +--------+ + + + | TN MNT RE-ASSESSMNT | Routin | 03/10/2018 | [...] | | | | use of insulin ([facility]) | | | | | | S/P [...]
--- OUTSIDE RECORDS SUMMARY | ~2019-05-20 | XMS | Encounter Summary ---
Demographics + + + | Address | [address] | | | [place] [address] | + + + | Home Phone [...] [place], [place] | | | | | [address] | | + + + + + | Ellie Vang | ECON | Unknown | | + + + + + Care Team Providers + +------+ + | Care Supervisor Bit And Shank Department Name | Role | Phone | [...] | | | 2012 | Event | [facility] | [address] | | | | | Admitting Desk | [address] | | | | | Located on the | [place], [place] | | | | | [facility] [address] | [address] | | | | | [address] | [phone] | | | | | [place], [place] | | | | | | [address] | | | +--------+ + + + [...] | | 2018 | Visit | | [address] | | | | | | [place], [place] | | | | | | [address] | | | | | | [phone] | | | | | | | [...]
--- OUTSIDE RECORDS SUMMARY | ~2019-05-20 | XMS | Encounter Summary ---
Demographics + + + | Address | [address] | | | [place] [address] | + + + | Home Phone [...] [place], [place] | | | | | [address] | | + + + + + | Ellie Vang | ECON | Unknown | | + + + + + Care Team Providers + +------+ + | Care Pebble Mill Operator Name | Role | Phone [...] | | bypass | [place], [place] | [facility] Center | | | | | Nausea and | [address] | for Health | | | | | vomiting, | Phone: | and Healing, | | | | | intractabili | | Building 2 | | | | | ty of | Fax: | [place], [place] | | | | | vomiting not | [phone] | [address] | | | | | specified, | | Phone: | | | | | unspecified | | [phone] | | | | | vomiting | | Fax: | | | | | type | | [phone] | | | | | Decreased | [...] | | | | | | DILATION ME | | | | | | | UPPER GI | | | | | | | ENDOSCOPY,BI | | | | | | | OPSY ME UP | | | | | | [...] | | 2017 | | Center at [facility] [address] | MD [address] | | | | | [address] | [place], [place] | | | | | Mailcode: [place] | [address] | | | | | for Health and | | | | | | [place] [address] | | | | | | [place], [place] | | | | | | [address] | | | | | | [phone] | | | +--------+ + + + [...] [place] | | | | | | [address] | | | | | | [phone] | | | | | | | [...]
--- OUTSIDE RECORDS SUMMARY | ~2019-05-20 | XMS | Encounter Summary ---
Demographics + + + | Address | [address] | | | [place] [address] | + + + | Home Phone [...] [place], [place] | | | | | [address] | | + + + + + | Ellie Vang | ECON | Unknown | | + + + + + Care Team Providers + +------+ + | Care Conservation Worker Name | Role | Phone | [...] [address] | | | | | [place], [place] | [address] | | | 03/03/ | | [address] | [place], [place] | | | 2014 | | [phone] | [address] | | | | | | [phone] | | | | | | | [...] port site who was transferre d to [facility] for concern of an incarcerated hernia. [...] mouth once daily. , Historical Med CALCIUM CRB&QIT-W6-PJW74-GENIS ORAL Take 1 tablet by mouth two [...] 10:40 AM Randell Franks Cardiology Preventive at [facility] [phone] Cardiology 04/09/2015 1:00 PM Egs Ppv Tra Trauma Emergency General Surgery at [facility] [phone] TRA[facility] Outstanding labs/studies: None Discharging Physician: GABO LANGSTON MD Attending Physician: Dr. Cantu PCP: Fadi Goodrich DO Signed: GABO LANGSTON MD Pager #[phone] Surgical Central Station Operator [facility] Associated attestation - Tye Carrillo DO - 03/12/2015 9:12 AM PDTAttending: I discussed this patient with the resident and agree with the assessment and plan as outlin ed in this note and participated in the planning of care. Tye Carrillo DO, MBA, FACS Division of Trauma, Critical Care & Acute Care Surgery [facility] [phone] documented in this encounter Medications at Time of Discharge + + + +---------+--------+ + | Medication | Sig | Dispensed | Refills | Start | End Date | | | | | | Date | | + + + +---------+--------+ + | CALCIUM | Take 2 tablets by | | 0 | | | | CRB&KGU-I4-TXQ60-GEN | mouth two times | | | [...] differ ent from the original. [facility] DEPARTMENT OF SURGERY EMERGENCY GENERAL SURGERY Division [...] obesity with known ventral hernias transferred to [facility] for surgical managem ent of ventral hernia, now s/p repair. Post surgical pain: -patient ready for d/c, discussed f/u. Patient lives far away and has other appointments at [facility]. Will attempt to coordinate appointments. Discharge Plan: D/c today GABO LANGSTON MD Pager #[phone] Surgical Central Station Operator [facility] Nataliai Mendez Salomón rose R - 03/02/2015 1:12 PM PDT [facility] DEPARTMENT OF SURGERY EMERGENCY GENERAL SURGERY Division of Trauma and Critical Care Attending Physician: Shahid Cantu MD Progress Note Note Date: 03/02/2015 Admission Date: 2015 DYLAN ROMERO, Hospital Day #2 40 F PMH morbid obesity (BMI 71 today), DM2, depression, GERD, h/o stroke at age 18, and kn own ventral hernias transferred to [facility] for surgical treatment of suspected incarcerated [...] obesity with known ventral hernias transferred to [facility] for surgical managem ent of ventral [...] will be robel ing her home to [place], [place]. CALVIN ROMERO MD PGY-1 Anesthesiology Pager: [phone] [facility] A [address] [place] [address] Karthik Oneill MD - 03/02/2015 8:26 AM [id number] Calvin William Md - 03/01/2015 5:34 PM PDT Brief Post Operative Note: 40 F PMH morbid obesity (BMI 71 today), DM2, depression, GERD, h/o stroke at age 18, and kn own ventral hernias transferred to [facility] for surgical treatment of incarcerated ventral [...] control CALVIN ROMERO MD PGY-1 Anesthesiology Pager: [phone] signed by Calvin Romero Md at 03/01/2015 [...] | | 2018 | Visit | | [address] | | | | | | [place], [place] | | | | | | [address] | | | | | | [phone] | | | | | | | [...] | | Attending Surgeon: Shahid Cantu MD Agricultural Loan Officer(s): Howie Angeles MD, R5 | | [...] 03/02/2015 08:25:39DT: 03/02/2015 09:15:57Job #: | | [id number] | | | |Dr. Chris Cantu was present and scrubbed for the entirety of the case. | | | | | | | |Karthik Gonzalez MD | | | |Pursuant to federal Medicare and Medicaid regulations I was present for the entire procedur e. | | | | | | | |Shahid Cantu MD | |Camp Coordinator | |Trauma, Critical Care & Acute Care Surgery | | | | | | | |Shahid Cantu MD | |TBK/YOLANDE | | | | | | /[id number] | + ---+ CAPILLARY BLOOD GLUCOSE (NO [...] - [facility] | [address] | [place], [place] | | | JUSTINE DAWN OF CARE | [address] | [address] | | | TESTS | | | [...] AMES | [address] | [place], [place] | | | JUSTINE DAWN OF JAKY | [address] | [address] | | | TESTS | | | [...] [facility] | [address] | [place], [place] | | | JUSTINE DAWN OF CARE | [address] | [address] | | | TESTS | | | [...] - [facility] | [address] | [place], [place] | | | JUSTINE DAWN OF CARE | [address] | [address] | | | TESTS | | | [...] AMES | [address] | [place], [place] | | | JUSTINE DAWN OF JAKY | [address] | [address] | | | TESTS | | | [...] MARQUAM | [address] | [place], [place] | | | JUSTINE DAWN OF CARE | [address] | [address] | | | TESTS | | | [...] [facility] | [address] | [place] [address] | | | SERVICES, CORE | CLARENCE [...] + | [facility] | [address] | [place] [address] | | | SERVICES, CORE | CLARENCE [...] (H) | 60 - 99 mg/dL | [facility] - | | | GLUCOSE, | [...] AMES | [address] | [place], [place] | | | L[place]PE[place] POINT OF CARE | [address] | [address] | | | TESTS | | | [...] MARQUAM | [address] | [place], [place] | | | JUSTINE DAWN OF CARE | [facility] | [address] | | | TESTS | | | [...] - [facility] | [address] | [place], [place] | | | [place] POINT OF CARE | [address] | [address] | | | TESTS | | | [...] AMES | [address] | [place], [place] | | | [place] POINT OF CARE | [address] | [address] | | | TESTS | | | [...] MARQUAM | [address] | [place], [place] | | | JUSTINE DAWN OF CARE | [address] | [address] | | | TESTS | | | [...] + + | [facility] | [address] | [place] [address] | | | LYDIA RANGEL | CLARENCE [...] MARQU[facility] | [address] | [place], [place] | | | HILL, POINT OF CARE | [address] | [address] | | | TESTS | | | [...] injection 1 dose, | | | Starting [facility] 03/01/15 at 1215, | | | Until [facility] 03/01/15 at 1216 | | + +---+ | | | + +---+ + +-------+ +-------+---+---+ | FLUoxetine (PROZAC) capsule 40 | Given | 03/03/20 | 40 mg | | | | mg 40 mg, oral, DAILY, First | | 15 8:32 | | | | | dose on [facility] 03/01/15 at 0900, Until | | [...] | | | | | dose on [facility] 03/01/15 at 0900, Until | | [...] | | | | | dose on [facility] 03/01/15 at 0900, Until | | [...]
--- OUTSIDE RECORDS SUMMARY | ~2019-05-20 | XMS | Encounter Summary ---
Demographics + + + | Address | [address] | | | [place] [address] | + + + | Home Phone [...] + | Katalina Padilla | ECON | [address] | | | | | [place], [place] | | | | | [address] | | + + + + + | Ellei Vang | ECON | Unknown | | + + + + + Care Team Providers + +------+ + | Care Oven Heater Helper Name | Role | Phone | + +------+ + | Fadi Goodrich DO | PCP | | + +------+ + Encounter Details +--------+---------+ + + + | Date | Type | Department | Care Team | Description | +--------+---------+ + + + | 02/22/ | Office | Preoperative | Gay Hoff, | Preop examination | | 2018 | Visit | [facility] at | DNP,ANP [address] | (Primary Dx) | | | | [facility] | [facility] [address] | | | | | [address] [place] | [place], [place] | | | | | Mail Code: OC8PM | [address] | | | | | [facility] | [phone] | | | | | and Healing, | | | | | | Building 2 | | | | | | [place], [place] | | | | | | [address] | | | | | | [phone] | | | +--------+---------+ + + + [...] or walk. Surgery check-in location: Admitting - [facility], ninth floor lobby Surgery Check in Time: [...] it is after office hours, call the [facility] lasting machine operator bed at [phone] and ask them to page him or [...] d function per TTE ( 02/16/2017) from [facility] [employer]: Improved and stable. T2DM - controlled with [...] renal failure no electrolyte abnormalities no dialysis Urology/Internet Application Developer: Within Defined Limits except as noted below [...] mg by mouth two times daily. CALCIUM CRB&NLH-A4-LSK07-GENIS ORAL Take 2 tablets by mouth two [...] Dr. Andie Brian Incisional hernia repair 03/01/2015 [facility]/ Dr. Cantu. Primary fascial closure [...] 98ms, QTC 460ms, TTE ( 02/16/2017) - [employer] [place] System 1. Overall left ventricular systolic function is normal with, an EF between 60 - 65 %. 2. The right ventricle is normal in size and function. 3. No significant valvular abnormalities are noted. 4. In comparison to the previous (technically difficult) echocardiographic study done 01/01, no signfiicant changes are noted. TTE (02/17/2016) - [employer] Conclusions 1. There is normal left ventricular [...] and resp iratory change. TTE (11/07/2015) - [facility] Final Impressions: 1. The interpretation [...] d function per TTE ( 02/16/2017) form [facility]. Improved and stable. - Confirmed with [...] to bring her own apparatus for [facility]. GERD - On omeprazole. Chronic Fluid retention [...] to this patient's care. Gay Hoff, ERENDIRA,ANP [facility] 4TH FLOOR [address] [facility] [address] I spent time (45 minutes, [...] | | 2018 | Visit | | [address] | | | | | | [place], [place] | | | | | | [address] | | | | | | [phone] | | | | | | | [...] +--------+ + + + | MT COLLECTION VENOUS | Routin | 02/22/2018 | [...] AT,GLUC,CA,AST,ALT,B | | | | | | AMRGIE TOTAL,ALK | | | | | | [...] [facility] | [address] | [place] [address] | | | SERVICES, CORE | [address] [...] [facility] | [address] | [place] [address] | | | SERVICES, | [address] [...] [facility] | [address] | [place] [address] | | | SERVICES, | [address] [...] [facility] | [address] | [place] [address] | | | SERVICES, SPECIAL | PARK [...] [facility] | [address] | [place] [address] | | | SERVICES, CORE | [address] | | | + + + + + 12 LEAD ECG (02/22/2018 1:18 PM PDT) + + + + + + | Component | Value | Ref Range | Performed | Pathologist | | | | | At | Signature | + + + + + + | VENTRICULAR | 110 | bpm | [facility] | | | RATE | | [...] DEPT OF | [address] | [place], [place] | | | CARDIOLOGY | [address] | [address] | | + + + + + documented in this encounter Visit Diagnoses + + | Diagnosis | + + | Preop examination - Primary Preoperative examination, unspecified | + + documented in this encounter
--- OUTSIDE RECORDS SUMMARY | ~2019-05-20 | XMS | Encounter Summary ---
Demographics + + + | Address | [address] | | | [place] [address] | + + + | Home Phone [...] [place], [place] | | | | | [address] | | + + + + + | Ellie Vang | ECON | Unknown | | + + + + + Care Team Providers + +------+ + | Care Registry Np Name | Role | Phone | + [...] | [facility] | | | with UNBUNDLER | | hypertension | [address] | [address] | | | | | Right | [address] | [address] | | | | | heart | [place], [place] | Mailcode: | | | | | failure | [address] | Center for | | | | | ([facility]) Type | Phone: | Health and | | | | | 2 diabetes | [phone] | Healing, | | | | | mellitus | Fax: | Building 2 | | | | | without | [phone] | [place], [place] | | | | | complication | | [address] | | | | | , with | | Phone: | | | | | long-term | | | | | | | current use | | Fax: | | | | | of insulin | | [phone] | | | | | ([facility] [...] 2019 | Visit | Center at [facility] [address] | PRODUCTION CONTROL EXPERT [address] | gastric bypass | | | | [address] | Ave [place], [place] | (Primary Dx); | | | | Mailcode: [place] | [address] | Intertriginous | | | | for Health and | [phone] | candidiasis | | | | [facility] 2 | | | | | | [place], [place] | | | | | | [address] | | | | | | [phone] | | | +--------+---------+ + + + [...] a new PCP, Dr. Cardenas in [facility]. Bariatric Measures: Activity: walking 1.5-2 miles daily [...] nilesh limb 150 cm or less 8 [facility] Social History Social History [...] History Narrative Updated 11/09/15 She lives in [place] with her mother and her sister (also her caregiver) lives in an apa rtment/duplex below. She has 2 grandchildren (age 4 and 7) who live with her daughter and son-in-law Her boyfriend lives in [place] HFpEF, DM2, HTN, Sleep Apnea (unable to [...] here and refer her to our customer retention specialist who also has expertise in physical [...] tongue once daily., Disp: , Rfl: CALCIUM CRB&FAR-I1-XER38-GENIS ORAL, Take 2 tablets by mouth two [...] n/a -HTN: still on medications -Diabetes: seeing shellacker in December, hopes to eliminate Metformin then as recent A1c was normal Return to bariatric clinic in 6 months for 1 year follow up visit See your primary care provider for adjusting any other medications. Call if any abdominal pain, n/v/d or other issues. Pt agrees to plan and will call and/or send [employer] message if any issues. Start time 2:45, end time 3:10. I spent a total of 25 minutes face to face with this patie nt. Over 50% of visit was in counseling. HILDA Davalos Bariatric Surgery Nurse Practitioner [facility] | CHMarisela [address] | [place], [place] | [address] | documented in this encounter Plan of [...] | | | | | [place], [place] | | | | | | [address] | | | | | | [phone] | | | | | | | [...] | [address] | [place] [address] | | | SERVICES, CORE | PARK [...] + | [facility] | [address] | [place] [address] | | | SERVICES, CORE | CLARENCE [...] INTFC | | | | determined by [employer] | | | | | | Laboratories. See | | | | | | Compliance Statement B: | | | | | | [employer]CSPerformed | | | | | | by [employer],[address] | | | | | | [place], [place] | | | | | | [address] | | | | | | [phone]. | | | | | | Ismael [...] [facility] | [address] | [place], [place] | | | UNIV PTH - [...] | | | | determined by [facility] | | | | | | Laboratories. See | | | | | | Compliance Statement B: | | | | | | [email or web address] | | | | | | by [employer],[address] | | | | | | [facility] | | | | | | [address] | | | | | | [phone]. | | | | | | [facility], Ismael Willis MD, | | [...] [facility] | [address] | [place], [place] | | | UNIV PTH - INTFC | | [address] | | + + [...] [facility] | | | (YEN NOAH) | [facility] Laboratories,[address] | | REG UNIV | | | SERUM | Liliana Martinez, [facility],[place] | | PTH - INTFC | | | | [address] | | | | | | [phone]. | | | | | | [email or web address], Ismael Willis MD, | | | | [...] | | | | determined by [facility] | | | | | | Laboratories. See | | | | | | Compliance Statement B: | | | | | | [email or web address] | | | | + + + + + + + + | Specimen | + + | Blood - Blood | | (substance) | + + + + + + + | Performing | Address | City/State/Zipcode | Phone Number | | Organization | | | | + + + + + | [facility] | [address] | [place], [place] | | | UNIV PTH - INTFC | | [address] | | + + + + + [...] LABORATORY | [address] | [place] [address] | | | SERVICES, CORE | PARK [...] + | [facility] | [address] [facility] | [place] [address] | | | SERVICES, CORE | CLARENCE [...] | | | | | determined by [employer] | | | | | | Laboratories. See | | | | | | Compliance Statement B: | | | | | | [email or web address] | | | | | | by [employer],[address] | | | | | | Liliana Martinez, [facility],[place] | | | | | | [address] | | | | | | [phone]. | | | | | | [email or web address] MD, | | | | | | [...] [facility] | [address] | [place], [place] | | | UNIV PTH - INTFC | | [address] | | + + + + + [...] | [address] | [place] [address] | | | SERVICES, CORE | PARK [...] | | | | | determined by [employer] | | | | | | Laboratories. See | | | | | | Compliance Statement B: | | | | | | [email or web address] | | | | | | by [employer],[address] | | | | | | Liliana Martinez [facility],[place] | | | | | | [address] | | | | | | [phone]. | | | | | | Ismael [...] [facility] | [address] | [place], [place] | | | UNIV PTH - INTFC | | [address] | | + + + + + [...] [facility] | [address] | [place] [address] | | | SERVICES, CORE | PARK [...] | [address] | [place] [address] | | | SERVICES, SPECIAL | CLARENCE [...] | + + + + + | [facility] | [address] | [place] [address] | | | SERVICES, CORE | CLARENCE [...] at | | | | | | [email or web address] | | | | | | med by [facility] | | | | | | [facility],[address] [facility] | | | | | | [place] [address] | | | | | | [phone]. | | | | | | mountain [...] [facility] | [address] | [place], [place] | | | UNIV PTH - INTFC | | [address] | | + + + + + [...] | | | LABORATORY | | | [place] | | | SERVICES, | | | [...] | [address] | [place] [address] | | | SERVICES, CORE | CLARENCE [...]
--- OUTSIDE RECORDS SUMMARY | ~2019-05-20 | XMS | Encounter Summary ---
Demographics + + + | Address | [address] | | | [place] [address] | + + + | Home Phone [...] [place], [place] | | | | | [address] | | + + + + + | Ellie Vang | ECON | Unknown | | + + + + + Care Team Providers + +------+ + | Care Learning Manager Name | Role | Phone | [...] 2014 | | Preventive at [facility] | MD [address] | | | | | [address] | Ave [place], [place] | | | | | Mailcode: 9A | [address] | | | | | [facility] | [phone] | | | | | and [place], | | | | | | [address] | | | | | | [place], [place] | | | | | | [address] | | | | | | [phone] | | | +--------+--------+ + + + [...] | | | | | [place], [place] | | | | | | [address] | | | | | | [phone] | | | | | | | | +--------+ + + + + | 07/08/ | Procedure | Surgery | | | | 2018 | Pass | | | | +--------+ + + + + documented as of this encounter Visit Diagnoses Not on filedocumented in this encounter"
--- OUTSIDE RECORDS SUMMARY | ~2019-05-20 | XMS | Encounter Summary ---
Demographics + + + | Address | [address] | | | [place] [address] | + + + | Home Phone [...] [place], [place] | | | | | [address] | | + + + + + | Ellie Vang | ECON | Unknown | | + + + + + Care Team Providers + +------+ + | Care Induction Heat Treater Name | Role | Phone | + [...] UPPER ENDOSCOPY | | 2018 | | [facility] | [address] | | | | | Admitting Desk | [place], [place] | | | | | Located on the | [address] | | | | | floor [address] [facility] | [phone] | | | | | [address] | | | | | | [place], [place] | | | | | | [address] | | | +--------+---------+ + + + [...] the endoscopy department toll free ext. 4 [phone] or After business hours or on weekends and holiday Hospital Help [facility] toll free [phone] ext. [phone] and have the GI doctor opinion polls survey worker paged. The provider who performed your procedure [...] | | 0 | | | | CRB&GQL-V0-[id number]-GEN | mouth two times | | | [...] 2:35 PM PST PRE PROCEDURE NOTE: MR# [id number] Subjective: Elzbieta Cristina is a 43 y.o. [...] | | | | | [place], [place] | | | | | | [address] | | | | | | [phone] | | | | | | | [...] -----+ | MRN: Analisa ARBOLEDA | | [id number] Date: 06/23/2018Patient Name: Elzbieta Curtis #: | ENDOSCOP Y | | [id number] of : 1975CSN: [id number] Type: | | | AmbulatoryRoom: SORProcedure: Upper GI | | | endoscopyIndications: Nausea with vomiting, Status post | | | Jnil-sq-LSnxtbaudg: KALEB WILCOX MD (Doctor), JOSE | | | NASIMA, Towing Pilot | | | (Towing Pilot)Referring MD: DANIELLE GARCÍAPRemateusz | | | Provider: [...] | | | The Olympus [id number] Gastroscope #[id number] was | | | introduced through the [...] endoscope without resistance. The | | | cnmkc-aw-dtwrnvh limb was characterized by healthy appearing | [...] Initiated On: | | | 06/23/2018 3:58 [facility] Letter to: FADI GOODRICH DO [...] AMES | [address] | [place], [place] | | | [place] [facility] CARE | [address] | [address] | | | TESTS | | | [...] 06/23/18 at | | | 1324, Until [facility] 06/24/18 at 0027, | | | sore [...] Jasmyne 06/24/18 at 0027, | | | hypopnea [...] Thu06/23/18 | | | at 1330, Until [facility] 06/24/18 at | | | 0027 | | + +---+ | | | + +---+ documented in this encounter"
--- OUTSIDE RECORDS SUMMARY | ~2019-05-20 | XMS | Encounter Summary ---
Demographics + + + | Address | [address] | | | [place] [address] | + + + | Home Phone [...] [place], [place] | | | | | [address] | | + + + + + [...] | 2012 | | Center at [facility] [address] | MD [address] | | | | | [address] | [facility] | | | | | Mailcode: Center | [place], [place] | | | | | [facility] and | [address] | | | | | [facility] 2 | [phone] | | | | | [place], [place] | | | | | | [address] | | | | | | [phone] | | | +--------+ + + + [...] | | 2018 | Visit | | [address] | | | | | | [place], [place] | | | | | | [address] | | | | | | [phone] | | | | | | | | +--------+ + + + + | 07/08/ | Procedure | Surgery | | | | 2018 | Pass | | | | +--------+ + + + + documented as of this encounter Visit Diagnoses Not on filedocumented in this encounter"
--- OUTSIDE RECORDS SUMMARY | ~2019-05-20 | XMS | Encounter Summary ---
Demographics + + + | Address | [address] | | | [place] [address] | + + + | Home Phone [...] [place], [place] | | | | | [address] | | + + + + + | Ellie Vang | ECON | Unknown | | + + + + + Care Team Providers + +------+ + | Care Equine Vet Name | Role | Phone | + +------+ + | Fadi Goodrich DO | PCP | | + +------+ + Encounter Details +--------+ + + + + | Date | Type | Department | Care Team | Description | +--------+ + + + + | 10/27/ | Telephone | Pain Center at [facility] | Leslie Mistry, | | | 2017 | | Floor [address] | PhD [address] [facility] | | | | | [address] Mailcode: | [address] | | | | | [address] [place], [place] | | | | | Health and Healing, | [address] | | | | | [facility] | [phone] | | | | | Floor [place], [place] | | | | | | [address] | | | | | | [phone] | | | +--------+ + + + [...] | | 2019 | Visit | | [address] | | | | | | [place] [facility] [place] | | | | | | [address] | | | | | | [phone] | | | | | | | | +--------+ + + + + | 07/08/ | Procedure | Surgery | | | | 2019 | Pass | | | | +--------+ + + + + documented as of this encounter Visit Diagnoses Not on filedocumented in this encounter"
--- OUTSIDE RECORDS SUMMARY | ~2019-05-20 | XMS | Encounter Summary ---
Demographics + + + | Address | [address] | | | [place] [address] | + + + | Home Phone [...] [place], [place] | | | | | [address] | | + + + + + | Ellie Vang | ECON | Unknown | | + + + + + Care Team Providers + +------+ + | Care Apple Peeler Operator Name | Role | Phone | [...] | | | without | [place] | [address] | | | | | mention of | | Phone: | | | | | obstruction | | [phone] | | | | | or gangrene | | Fax: | | | | | | | [phone] | +--------+--------+ + + + + Encounter [...] | PPV [address] | [address] | Hernia | | | | [address] | [place], [place] | | | | | Mailcode: L223A | [address] | | | | | [facility] | [phone] | | | | | [address] [place], [place] | | | | | | [address] | | | | | | [phone] | | | +--------+---------+ + + + [...] are still in, And wound is healed. [place] removed. Drainage is serous, very slight sanguinous. No eviden ce of deep subcutaneous infection. Abdominal wall currently intact. Drain site OK. Assessment/Plan: Satisfactory course following primary repair of incarcerated umbilical he rnia. Pt. Wants to obtain care, including drain removal and diabetic care in [place], so I have referred her to her [...] | | 2018 | Visit | | [address] | | | | | | [place], [place] | | | | | | [address] | | | | | | [phone] | | | | | | | [...]
--- OUTSIDE RECORDS SUMMARY | ~2019-05-20 | XMS | Encounter Summary ---
Demographics + + + | Address | [address] | | | [place] [address] | + + + | Home Phone [...] [place], [place] | | | | | [address] | | + + + + + | Ellie Vang | ECON | Unknown | | + + + + + Care Team Providers + +------+ + | Care Transportation Coordinator Name | Role | Phone | + +------+ + | Fadi Goodrich DO | PCP | | + +------+ + Encounter Details +--------+ + + + + | Date | Type | Department | Care Team | Description | +--------+ + + + + | 02/13/ | Telephone | Cardiology | Randell Franks, | | | 2016 | | Preventive at [facility] | MD [address] | | | | | [address] | Ave [place], [place] | | | | | Mailcode: [facility] | [address] | | | | | [facility] | [phone] | | | | | and Healing, | | | | | | Building [address] | | | | | | [facility] [place] | | | | | | [address] | | | | | | [phone] | | | +--------+ + + + [...] | | 2019 | Visit | | [address] | | | | | | [place], [place] | | | | | | [address] | | | | | | [phone] | | | | | | | | +--------+ + + + + | 07/08/ | Procedure | Surgery | | | | 2019 | Pass | | | | +--------+ + + + + documented as of this encounter Visit Diagnoses Not on filedocumented in this encounter"
--- OUTSIDE RECORDS SUMMARY | ~2019-05-20 | XMS | Encounter Summary ---
Demographics + + + | Address | [address] | | | [place] [address] | + + + | Home Phone [...] Team Providers + +------+ + | Care City Weighmaster Name | Role | Phone | + [...] [address] | | | | | [place] [facility] [address] | [address] [place], [place] | | | | | [address] [facility] | [address] | | | | | Mailcode: Center | [phone] | | | | | for Health and | | | | | | [facility], [facility] | | | | | | [place], [place] | | | | | | [address] | | | | | | [phone] | | | +--------+ + + + [...] [place] | | | | | | [address] | | | | | | [phone] | | | | | | | | +--------+ + + + + | 07/08/ | Procedure | Surgery | | | | 2019 | Pass | | | | +--------+ + + + + documented as of this encounter Visit Diagnoses Not on filedocumented in this encounter"
--- OUTSIDE RECORDS SUMMARY | ~2019-05-20 | XMS | Encounter Summary ---
Demographics + + + | Address | [address] | | | [place] [address] | + + + | Home Phone [...] + | Katalina Padilla | ECON | [address] | | | | | [place], [place] | | | | | [address] | | + + + + + | Ellie Vang | ECON | Unknown | | + + + + + Care Team Providers + +------+ + | Care Supervisor Toy Parts Former Name | Role | Phone | [...] at | | | | | | Formerly [facility] | | | | | | [address] | | | | | | Mailcode: OC2L | | | | | | [facility] | | | | | | and Healing, | | | | | | Building [address] | | | | | | [place], [place] | | | | | | [address] | | | | | | [phone] | | | +--------+ + + + [...] + + + + | 12/05/ | Office | Cardiology | Randell Franks, | | | 2019 | Visit | | [address] | | | | | | [place], [place] | | | | | | [address] | | | | | | [phone] | | | | | | | | +--------+ + + + + | 07/08/ | Procedure | Surgery | | | | 2018 | Pass | | | | +--------+ + + + + documented as of this encounter Visit Diagnoses Not on filedocumented in this encounter"
--- OUTSIDE RECORDS SUMMARY | ~2019-05-20 | XMS | Encounter Summary ---
Demographics + + + | Address | [address] | | | [place] [address] | + + + | Home Phone [...] [place], [place] | | | | | [address] | | + + + + + | Ellie Vang | ECON | Unknown | | + + + + + Care Team Providers + +------+ + | Care Limo Driver Name | Role | Phone | [...] | [facility] | | | with DE IONIZER OPERATOR | | hypertension | [address] | [address] | | | | | Right | [address] | [address] | | | | | heart | [place], [place] | Mailcode: | | | | | failure | [address] | Center for | | | | | ([facility]) Type | Phone: | Health and | | | | | 2 diabetes | [phone] | Healing, | | | | | mellitus | Fax: | Building 2 | | | | | without | [phone] | [place], [place] | | | | | complication | | [address] | | | | | , with | | Phone: | | | | | long-term | | | | | | | current use | | Fax: | | | | | of insulin | | [phone] | | | | | ([facility] [...] 2018 | Visit | Center at [facility] [address] | [address] | BMI of 70 and over, | | | | [address] | [place], [place] | adult ([facility]) (Primary | | | | Mailcode: Center | [address] | Dx); Diabetes | | | | for [employer] and | [phone] | mellitus type 2 | | | | [facility], Building 2 | | without retinopathy | | | | [place], [place] | | ([facility]); | | | | [address] | | Intertriginous | | | | [phone] | | candidiasis; PCOS | | | | | | (polycystic ovarian | | | | | | syndrome); AMARA | | | | | | treated with BiPAP; | | | | | | Chronic diastolic | | | | | | heart failure ([facility]); | | | | | | [...] 10/30/2017 10:00 AM PDTPlease visit with our [facility] Rep[facility] (RD) for instructions about your Bariatric diet, assistance with calorie c ounts, tips and tricks for working with your diet restrictions, and recipes after bariatric surgery. Daily yogurt; even just 1 tablespoon twice a day will provide enough probiotics to optimize digestion. Try to use a high-quality, probiotic-dense yogurt (eg Zaria's, Kobifield, Stacie lala Kefir, Nurse Assistant [employer] Bhutanese Yogurt). Remember to chew your food well, [...] to the healing stomach. There are also group home complications of poor wound healing and [...] 1 tablet by mouth once daily CALCIUM CRB&FSG-G0-BMZ56-GENIS ORAL Take 2 tablets by mouth two [...] Narrative Updated 11/09/15 She lives in [place] with her mother and her sister (also her caregiver) lives in an artment/duplex below. She has 2 grandchildren (age 4 and 7) who live with her daughter and son-in-law Her boyfriend lives in [place] HFpEF, DM2, HTN, Sleep Apnea (unable to [...] program here and refer her to our asset specialist who also has expertise in physical [...] a 4-5% rate of reoperation over the packing inspector (i.e. years), as well as other late [...] and may approach 5%. We reviewed the [facility] consent form. We discussed that we [...] | | 2018 | Visit | | [address] | | | | | | [place], [place] | | | | | | [address] | | | | | | [phone] | | | | | | | [...] | | |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 ([facility]) | [...] | | | | | determined by [facility] | | | | | | Laboratories. See | | | | | | Compliance Statement B: | | | | | | [facility].[employer]/CSPerformed | | | | | | by [employer],[address] | | | | | | [facility]iana [facility],[place] | | | | | | [address] | | | | | | [phone].[facility]. | | | | | | [facility] hospitalIsmael MD, | | | | | [...] [facility] | [address] | [place], [place] | | | [facility] | | [address] | | + + + + + [...] the MDRD equation recommended by the | [facility] | | National Kidney Disease Education [...] [facility] | [address] | [place] [address] | | | SERVICES, CORE | PARK [...] [facility] | [address] | [place] [address] | | | SERVICES, CORE | PARK [...] LABORATORY | [address] | [place] [address] | | | CLAIRE, LYDIA | PARK [...] + + + + + | [facility] | [address] | [place] [address] | | | SERVICES, CORE | CLARENCE [...] [facility] | [address] | [place] [address] | | | SERVICES, CORE | PARK [...] + + + | [facility] | [address] | [place] [address] | | | SERVICES, CORE | CLARENCE [...]
--- OUTSIDE RECORDS SUMMARY | ~2019-05-20 | XMS | Encounter Summary ---
Demographics + + + | Address | [address] | | | [place] [address] | + + + | Home Phone [...] [place], [place] | | | | | [address] | | + + + + + | Ellie Vang | ECON | Unknown | | + + + + + Care Team Providers + +------+ + | Care Paper Feeder Name | Role | Phone | [...] | | | | | | [place] [address] | | | +--------+ + + + [...] | | 2019 | Visit | | [address] | | | | | | [place] [facility] [place] | | | | | | [address] | | | | | | [phone] | | | | | | | | +--------+ + + + + | 07/08/ | Procedure | Surgery | | | | 2019 | Pass | | | | +--------+ + + + + documented as of this encounter Visit Diagnoses Not on filedocumented in this encounter"
--- OUTSIDE RECORDS SUMMARY | ~2019-05-20 | XMS | Clinical Summary ---
Demographics + + + | Address | [address] | | | [place] [address] | + + + | Home Phone [...] Providers + +------+ + | Care Scrap Wheeler Name | Role | Phone | + [...] 0 | | | Activ | | Xgogyrz-Eosjgbwfx-Xt | mouth 2 times daily. 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 | + + + + + [...] qd x | | 30 October 2015 [facility] Assessment & Plan: Hgb appears [...] admission to [facility] for 100lb | | weight gain- DC on diuresis on 03/06/2016- she feel improvedShe | | was on Metolazone and Torsemide prior to hospitalization- both | | have better bioavailability than lasix in gut edema but she | | retained 100lbs - how ever she is currently on only Torsemide | | 100mg Q12hrs started in [address] and her weight been stable | | sinceShe has no other complaints.She is pending to see | | NephrologistEcho 02/16/2016([facility])- Normal LV systolic | | function, mildly [...] morbid obesity, she is enrolled in the [facility] bariatric program. | | She [...] tolerating well in the | | hospital-- [place] arranging for BiPAP upon d/c home to [facility] | | areaOverview: Cannot tolerate CPAP | [...] + + + + | Overview: Overview: [facility] Assessment & Plan: Patient with [...] responded well to diuresis at | | [facility] (lost 60lb, down to 410), and then reaccumulated water | | weight on Torsemide and metolazone, which should be less effected | | by gut wall edema than Lasix. She has an appt with nephrology at | | [facility] on 03/17. Weight now 200kg [...] Defer Metolazone to her | | outpatient Home Care Scheduler or Director Nurses' Registry- Will continue KCL | | supplementation at 60meq QID despite the spironolactone as she | | remains on the low side- Encourage daily weights at home with a | | log; she should contact her PCP, Home Care Scheduler or Director Nurses' Registry for | | a 10lb weight gain [...] | | | 2018 | | | HILDA Pope | | +--------+ + + + + | 02/17/ | Orders Only | | Provider, | Pure | | 2018 | | | Historical, MD | hyperglyceridemia; | | | | [...] hypertension | +--------+ + + + + from [...] + | Blood Pressure | 130/76 | 04/28/20196 PDT | + + + + | Pulse | 76 | 04/28/20196 PDT | + + + [...] | Body Mass Index | 56.81 | 04/28/20196 PDT | + + + + Plan [...] | | | | | by [facility] [place] Read Only, | | | | | | [facility] Ya (102), | | | | | | movie editor [place] Alberto | | | | [...] 0.61 m/s | | | MV Dec Mcdowell: 2.43 m/s2 MV DecT: 247.51 ms MV E Jeffrey: | | | 0.60 m/s MV E/A Ratio: 0.98 MV PHT: 71.78 ms MVA By | | | PHT: 3.06 cm2 Septal e': 0.06 m/s Septal E/e': 9.54 | | | Lateral e': 0.10 m/s Lateral E/e': 5.84 RAP: 5 mmHg RV | | | s': 0.11 m/s Mental Health Clinician: JESSICA Authenticated by: Darryl | | | [facility] Report Date/Time: 02-22-2019 20:8:36 | | + + + + --------+ | Procedure Note | + --------+ | David Burgess Conversion - 03/17/2019 1308 PDT Patient Name: Tiny Cristina of : | | 1975 Performing Physician: Darryl | | [place] INDICATIONS------ | | -----Sinus Tachycardia CONCLUSIONS 1. [...] cmLVIDd: 4.70 cmLVPWd: 0.79 cmLVOT Area: 3.58 [id number] Diam: 2.13 cm%FS: 39.25 | | %EF(Teich): [...] | Index (A-L): 14.72 ml/m2LAAs A2C: 10.03 ef4GOQWP A-L A2C: 22.69 mlLALs A2C: 3.76 | | cmLAAs A4C: 13.41 so2ABXIO A-L A4C: 36.80 mlLALs A4C: 4.14 cmRAAs: 11.18 | | gl1PQYQZ A-L: 22.84 mlRAESV MOD: 22.10 mlRALs: 4.64 cmTAPSE: 2.04 cmAV maxPG: | | 6.55 mmHgAV meanP.52 mmHgAV Vmax: 1.27 m/Genesis Vmean: 0.88 m/Genesis VTI: 26.50 | | cmAVA Vmax: 2.49 cm2AVA (VTI): 2.39 qf8VAMX Vmax: 0.00 cm2/m2AVAI (VTI): 0.00 | | cm2/m2LVOT maxP.17 mmHgLVOT meanP.82 mmHgLVSI Dopp: 30.83 ml/m2LVSV Dopp: | | 63.52 mlLVOT Vmax: 0.89 m/sLVOT Vmean: 0.65 m/sLVOT VTI: 17.71 cmMV A Jeffrey: | | 0.61 m/sMV Dec Mcdowell: 2.43 m/s2MV DecT: 247.51 msMV E Jeffrey: 0.60 m/sMV E/A Ratio: | | 0.98MV PHT: 71.78 msMVA By PHT: 3.06 st2Qxfssi e': 0.06 m/sSeptal E/e': | | 9.54Lateral e': 0.10 m/sLateral E/e': 5.84RAP: 5 mmHgRV s': 0.11 m/s | | Mental Health Clinician: DHAuthenticated by: Darryl [facility]ale[facility]Universal [facility] Services Date/Time: 02-22-2019 20:8:36 | | IMPRESSION: 1. [...] A Jeffrey: 0.61 m/s | |MV Dec Mcdowell: 2.43 m/s2 | |MV DecT: 247.51 ms | |MV E Jeffrey: 0.60 m/s | |MV E/A Ratio: 0.98 | |MV PHT: 71.78 ms | |MVA By PHT: 3.06 cm2 | |Septal e': 0.06 m/s | |Septal E/e': 9.54 | |Lateral e': 0.10 m/s | |Lateral E/e': 5.84 | |RAP: 5 mmHg | |RV s': 0.11 m/s | | | |Mental Health Clinician: | |Authenticated by: Darryl Merrill | |Report [...] | [employer] | MODA | [id number] | 10/28/19 | [phone] | | Medica | | MEDICAID HMO | HEALTH | | 19-Pre | 1 | | id | | | MDCD | | sent | | | | | | [place] | | | | | | + +--------+ +--------+ +---------+--------+ | [employer] | MODA | [id number] | | [phone] | | Medica | | MEDICAID HMO [...] | | 1974 | [phone] | [address] [place] | | | [place] | | | 3 (Home) | [address] | + +--------+ +--------+ + + | Elzbieta Cristina | Person | Self | [birth year] | [address] | | | al/Fam | | 1975 | [phone] | [address] [place] | | | [place] | | | 3 ([place]) | [address] | + +--------+ +--------+ + + Advance Directives Patient has advance care planning documents on file. For more information, please contact:[facility] [place] [address]
--- OUTSIDE RECORDS SUMMARY | ~2019-05-20 | XMS | Encounter Summary ---
Demographics + + + | Address | [address] | | | [place] [address] | + + + | Home Phone [...] [place], [place] | | | | | [address] | | + + + + + | Ellie Vang | ECON | Unknown | | + + + + + Care Team Providers + +------+ + | Care Field Sales Trainer Name | Role | Phone | [...] Lesly | | | | | Mailcode: [address] | [place], [place] | | | | | [facility] and | [address] | | | | | [facility] 2 | [phone] | | | | | [place], [place] | | | | | | [address] | | | | | | [phone] | | | +--------+ + + + [...] | | 2018 | Visit | | [address] | | | | | | [place], [place] | | | | | | [address] | | | | | | [phone] | | | | | | | | +--------+ + + + + | 07/08/ | Procedure | Surgery | | | | 2018 | Pass | | | | +--------+ + + + + documented as of this encounter Visit Diagnoses Not on filedocumented in this encounter"
--- OUTSIDE RECORDS SUMMARY | ~2019-05-20 | XMS | Clinical Summary ---
Demographics + + + | Address | [address] | | | [place] [address] | + + + | Home Phone [...] Author + + + | Author | [facility] | + + + | Organization | [facility] | + + [...] [place], [place] | | | | | [address] | | + + + + + | Ellie Vang | ECON | Unknown | | + + + + + Care Team Providers + +------+ + | Care Hospitality Ambassador Name | Role | Phone | + +------+ + | Keynatta Hylton MD | PCP | | + +------+ + Source Comments NKECHI is fully live on both EpicCare Ambulatory and EpicCare InPatient.[facility] Allergies + + + + [...] 0 | | | Activ | | [id number] | mouth two times | | | [...] + + + + | 03/02/ | Financial Services Counselor | Surgery | Keren Allen, | | [...] [place] | | | | | | [address] | | | | | | [phone] | | | | | | | [...] - | | | | | | /[id number] | | [id number]: Qty: 1 on | | | | | | 525 | | 03/01/2018 by Ion Pandey | | | | | | | | MD Vinicius at [facility] | | | | [...] - | | | | | | /[id number] | | [id number]: Qty: 1 on | | | | | | 173 | | 03/01/2018 by Ion Pandey | | | | | | | | MD Vinicius at [facility] | | | | [...] [place]A | [address] | [place], [place] | | | JUSTINE DAWN OF JAKY | [facility] | [address] | | | TESTS | | | [...] + + + + + | [facility] | [address] | [place] [address] | | | SERVICES, CORE | CLARENCE [...] | | | LABORATORY | | | [place] | | | SERVICES, | | | [...] + + + + + | [facility] | [address] | [place] [address] | | | SERVICES, CORE | CLARENCE [...] + + + + + | [facility] | [address] | [place] [address] | | | SERVICES, CORE | CLARENCE [...] [facility] | [address] | [place] [address] | | | SERVICES, CORE | CLARENCE [...] 5-6 weeks | | | 850 - 24711 6-7 weeks | | | 4000 - [phone] 7-12 weeks | | | 69160 - 583256 12-16 weeks | | | 07124 - 470948 16-29 | | | weeks 1400 - 49721 | | | 29-41 weeks 940 - 32705 | | | This test has not been approved for use as a tumor marker in | | | males or females. | | + + + + + + + + | Performing | Address | City/State/Zipcode | Phone Number | | Organization | | | | + + + + + | [facility] | [address] | [place] [address] | | | SERVICES, CORE | [address] | | | + + + + + ED INFORMATION EXCHANGE (05/13/2019 5:14 PM PDT) + + | Specimen | + + | | + + + + + | Narrative | Performed At | + + + | COLLECTIVE?NOTIFICATION?05/13/2019 17:13?DYLAN ROMERO?MRN: | COLLECTIVE | | [id number] Criteria Met Has Guidelines PDMP Security | MEDICAL | | and Safety No recent Security Events currently on file ED Care | TECHNOLOGIES | | Guidelines from [facility] Last Updated: 12/06/18 9:53 AM | | | Care Coordination: Receiving mental health services with | | | [facility].? Please contact [facility] for mental health concerns.? | | | Saima/Toni Centeno: [phone]? Kishan: [phone].? | | | These are guidelines and the provider should exercise clinical | | | judgment when providing care. Care History Medical/Surgical | | | 05/11/19 12:00 AM [facility] Patient is | | | currently established with [facility]. If patient is seen in | | | the ED during business hours. Please contact CHWs at [facility] | | | Clinic. Care Recommendation: [...] 08/23/18 12:00 AM | | | [facility] PATIENT HAS A PCP APT TO [...] SUDOGEST 30 MG TABLET 5 BERNARDO MARTIN, OTOLARYNGOLOGIST 0 | | | 2019-03-30 SUDOGEST 30 MG TABLET 30 BERNARDO MARTIN, OTOLARYNGOLOGIST 0 | | | 2019-03-20 ALPRAZOLAM 1 [...] (12 mo.) Facility Visits | | | [facility] 1 [facility] 1 | | | [facility] 2 Total 4 Note: Visits indicate total | | | known visits. Recent Emergency Department Visit Summary Date | | | Facility City State Type Diagnoses or Chief Complaint May 13, 2019 | | | [facility] [place] Emergency | | | 10,800. A303 May 10, 2019 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 Emergency RIGHT LEG PAIN DUE TO FALL | | | Strain of unsp musc/tend at lower leg level, right leg, init Jul | | | 2018 [facility] [place] Emergency Other long-term | | | (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 Upper abdominal pain, unspecified | | | Bariatric surgery status Allergy status to oth drug/meds/biol | | | subst status Noninfective gastroenteritis and colitis, | | | unspecified Obesity, unspecified Anxiety disorder, | | | unspecified group home (current) use of aspirin Allergy | | | status to penicillin Personal history of pulmonary embolism | | | Recent Inpatient Visit Summary No recorded inpatient visits. | | | Care Team Provider Specialty Phone Fax Service Dates Najmaraymond, | | | Rob Art Objects Repairer/Saddle And Harness Maker Mar 27, 2018 - | | | Current Bernard Hylton MD Internal Medicine: Pulmonary Disease | | | Aug 23, 2018 - Current [employer] This patient has | | | registered at the [facility] | | | Department For more information visit: | | | [email or web address] | | | [email or web address] PLEASE NOTE: 1. Any care recommendations [...] or completeness of information provided. ? 2019 [employer] | | | [employer] - wwwMotiga | | + + + + + | Procedure Note | + + | Service Account, Rtf Results Inbound - 05/13/2019 5:16 PM PDT Formatting of this | | note might be different from the original.COLLECTIVE?NOTIFICATION?05/13/2019 | | 17:13?DYLAN ROMERO? Met Has Guidelines PDMPSecurity and | | SafetyNo recent Security Events currently on fileED Care Guidelines from [facility] - | | [place] Updated: 12/06/18 9:53 AM Care Coordination:Receiving mental health | | services with [facility].? Please contact [facility] for mental health concerns.? | | Saima/Toni Centeno: [phone]? Kishan: [phone].?These are guidelines | | and the provider should exercise clinical judgment when providing care.Care | | HistoryMedical/Qtzxdggf72/16/19 12:00 AM [facility] Patient is currently | | established with [facility]. If patient is seen in the ED during business hours. | | Please contact CHWs at [facility].Care Recommendation:This patient has had 5 [...] clinical judgment when providing care.08/23/18 12:00 AM [facility] | | Hospital PATIENT HAS [...] SUDOGEST 30 MG TABLET 5 BERNARDO MARTIN, OTOLARYNGOLOGIST 0 2019-03-30 SUDOGEST 30 MG TABLET 30 | | BERNARDO MARTIN, OTOLARYNGOLOGIST 0 2019-03-20 ALPRAZOLAM 1 MG TABLET 60 [...] Visits Neftali Rivera | | Health 1 [facility] 1 [facility] 2 Total 4 Note: | | Visits indicate total known visits. Recent Emergency Department Visit SummaryDate | | Facility City State Type Diagnoses or Chief Complaint May 13, 2019 [facility] | | [facility] [place] Emergency 10,800. A303 May 10, 2019 [facility] | | [place] Emergency [...] to penicillin December 03, 2018 | | [facility] [place] Emergency RIGHT LEG PAIN DUE TO FALL Strain of | | unsp musc/tend at lower leg level, right leg, init Aug 22, 2018 [facility] | | [place] Emergency Other endless belt finisher (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 Upper abdominal pain, | [...] Fax Service Dates | | Rob Tilley Art Objects Repairer/Saddle And Harness Maker Mar 27, 2018 - Current | | Bernard Hylton MD Internal Medicine: Pulmonary Disease Aug 23, 2018 - Current | | [employer] Technology[employer]i patient has registered at the [facility] | | Emergency Department For more information visit: | | [email or web address] PLEASE | | NOTE: 1. Any care [...] completeness of information | | provided.? 2019 [employer] - wwwMotiga | |Unique Pharmacies 3 | |Benzos 4 | |Opioids 7 | |Long Acting Opioids 0 | | | | | | | |E.D. Visit Count (12 mo.) | |Facility Visits | |[facility] 1 | |[facility] 1 | |[facility] 2 | |Total 4 | |Note: Visits indicate total known visits. | | | |Recent Emergency Department Visit Summary | |Date Facility City State Type Diagnoses or Chief Complaint | |May 13, 2019 [facility] [place] Emergency | | 10,800. A303 | | | |May 10, 2019 [facility] [place] Emergency | | [...] | | | |December 03, 2018 [facility] [place] Emergency | | RIGHT LEG PAIN DUE TO FALL | | Strain of unsp musc/tend at lower leg level, right leg, init | | | |Aug 22, 2018 [facility] [place] Emergency | | Other endless belt finisher (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 | | Upper abdominal pain, unspecified | | Bariatric surgery status | | Allergy status to oth drug/meds/biol subst status | | Noninfective gastroenteritis and colitis, unspecified | | Obesity, unspecified | | Anxiety disorder, unspecified | | group home (current) use of aspirin | | Allergy status to penicillin | | Personal history of pulmonary embolism | | | | | | | |Recent Inpatient Visit Summary | |No recorded inpatient visits. | | | |Care Team | |Provider Specialty Phone Fax Service Dates | |Rob Tilley Art Objects Repairer/Saddle And Harness Maker Mar 27, 2018 - Current | |Bernard Hylton MD Internal Medicine: Pulmonary Disease Aug 23, 2018 - Current | | | |exozet Portal | |This patient has registered at the [facility] Emergency Departmen t | |For more information visit: [email or web address] | |PLEASE NOTE: | | 1. Any [...] information provided. | | | |? 2019 [employer]. - www.[employer]er [employer] Online | + + + + + + + | Performing | Address | City/State/Zipcode | Phone Number | | Organization | | | | + + + + + | [facility] | [address], | [place], [place] | [phone] | | TECHNOLOGIES | [address] | [address] | | + + + + + EGD (04/07/2019 10:53 AM PDT) + + | Specimen | + + | | + + + + + | Narrative | Performed At | + + + | MRN: | NKECHI | | [id number] Date: 04/07/2019Patient Name: Dylan Curtis #: | ENDOSCOPY | | [id number] of : 1975CSN: [id number] Type: | | | AmbulatoryRoom: Endo 5Procedure: Upper GI | | | endoscopyIndications: Generalized abdominal pain, Nausea | | | with vomitingProviders: TAL MCNEIL MD | | | (Doctor), BERNARDO BERNARD RN (Nurse), | | | EREN SLATER (Estimator And Drafter)Referring MD: KEREN Kilpatrick | | | KENNY [...] | | | The Olympus [id number] Endoscope #[id number] | | | was introduced through the [...] Note | + + | Service Account, Safety Hound Res In Interface - 03/08/2019 3:33 PM [...] | | | | determined by [facility] | | | | | | Laboratories. See | | | | | | Compliance Statement B: | | | | | | [employer].Vidapp/CSPerformed | | | | | | by [employer],[address] | | | | | | Natalia Parson [facility],[place] | | | | | | [address] | | | | | | [phone].[employer]. | | | | | | comIsmael [...] [facility] | [address] | [place], [place] | | | UNIV PTH - INTFC | | [address] | | + + + + + [...] + + + + + | [facility] | [address] | [place] [address] | | | SERVICES, CORE | CLARENCE [...] + + + + + | [facility] | [address] | [place] [address] | | | SERVICES, CORE | CLARENCE [...] B: | | | | | | [employer].Vidapp/CSPerformed | | | | | | by [employer]visor,[address] | | | | | | [facility] | | | | | | [address] | | | | | | [phone].[employer]. | | | | | | VidappIsmael MD, | | | | | | [...] [facility] | [address] | [place], [place] | | | UNIV PTH - INTFC | | [address] | | + + + + + [...] [facility] | | | (YEN NOAH) | ShopAdvisor,500 | | REG UNIV | | | SERUM | Natalia Parson, [facility] [place],[place] | | PTH - INTFC | | | | [address] | | | | | | [phone].[employer]. | | | | | | comIsmael [...] B: | | | | | | [employer]/CS | | | | + + [...] [facility] | [address] | [place], [place] | | | UNIV PTH - INTFC | | [address] | | + + + + + [...] INTFC | | | | determined by [facility] | | | | | | Laboratories. See | | | | | | Compliance Statement B: | | | | | | [employer].Vidapp/CSPerformed | | | | | | by [employer]visor,[address] | | | | | | [place] | | | | | | [address] | | | | | | [phone].[employer]. | | | | | | VidappIsmael MD, | | | | | | [...] [facility] | [address] | [place], [place] | | | UNIV PTH - INTFC | | [address] | | + + + + + [...] | + + + + + | [email or web address] | [address] | [place] [address] | | | SERVICES, SPECIAL | CLARENCE [...] | | | | | determined by [facility] | | | | | | Laboratories. See | | | | | | Compliance Statement B: | | | | | | [employer].Vidapp/CSPerformed | | | | | | by [employer]visor,[address] | | | | | | Natalia Parson, [facility],[place] | | | | | | [address] | | | | | | [phone].[employer]. | | | | | | [...] [facility] | [address] | [place], [place] | | | UNIV PTH - INTFC | | [address] | | + + + + + [...] | + + + + + | [facility] | [address] | [place] [address] | | | LYDIA RANGEL | CLARENCE [...] [facility] | [address] | [place] [address] | | | SERVICES, CORE | PARK [...] | + + + + + | [email or web address] | [address] | [place] [address] | | | SERVICES, CORE | CLARENCE [...] | + + + + + | [email or web address] | [address] | [place] [address] | | | SERVICES, CORE | CLARENCE [...] | | | | determined by [facility] | | | | | | Laboratories. See | | | | | | Compliance Statement B: | | | | | | [employer].com/CSPerformed | | | | | | by [facility],[address] | | | | | | [place] | | | | | | [address] | | | | | | [phone].[employer]. | | | | | | comIsmael [...] [facility] | [address] | [place], [place] | | | UNIV PTH - INTFC | | [address] | | + + + + + [...] | | | + +--------+ +--------+-------+---------+--------+ | CHAIN SALES CONSULTANT MEDICAID | CHAIN SALES CONSULTANT | xxxxxxxx | | | | Medica [...] mireya | | | 3 (Home) | [address] | + +--------+ +--------+ + + Advance [...]
--- OUTSIDE RECORDS SUMMARY | ~2019-05-20 | XMS | Encounter Summary ---
Demographics + + + | Address | [address] | | | [place] [address] | + + + | Home Phone [...] + | Katalina Padilla | ECON | [address] | | | | | [place], [place] | | | | | [address] | | + + + + + | Ellie Vang | ECON | Unknown | | + + + + + Care Team Providers + +------+ + | Care Coal Miner Name | Role | Phone | [...] | | Review | | | | [facility] | | | | | | [address] | | | | | | Mailcode: OC2L | | | | | | [facility] | | | | | | and [address], | | | | | | [address] | | | | | | [place], [place] | | | | | | [address] | | | | | | [phone] | | | +--------+ + + + [...] | | | | | [address] [place] [place], [place] | | | | | | [address] | | | | | | [phone] | | | | | | | | +--------+ + + + + | 07/08/ | Procedure | Surgery | | | | 2019 | Pass | | | | +--------+ + + + + documented as of this encounter Visit Diagnoses Not on filedocumented in this encounter"
--- OUTSIDE RECORDS SUMMARY | ~2019-05-20 | XMS | Encounter Summary ---
Demographics + + + | Address | [address] | | | [place] [address] | + + + | Home Phone [...] [place], [place] | | | | | [address] | | + + + + + | Ellie Vang | ECON | Unknown | | + + + + + Care Team Providers + +------+ + | Care Dental Office Assistant Name | Role | Phone | + +------+ + | Fadi Goodrich DO | PCP | | + +------+ + Encounter Details +--------+ + + + + | Date | Type | Department | Care Team | Description | +--------+ + + + + | 08/22/ | Abstract | Cardiology | Randell Franks, | | | 2013 | | Preventive at [facility] | MD [address] | | | | | [address] | Ave [place], [place] | | | | | Mailcode: CH9A | [address] | | | | | [facility] | [phone] | | | | | and Healing, | | | | | | [address] | | | | | | [place], [place] | | | | | | [address] | | | | | | [phone] | | | +--------+ + + + [...] | | 2018 | Visit | | [address] | | | | | | [place], [place] | | | | | | [address] | | | | | | [phone] | | | | | | | | +--------+ + + + + | 07/08/ | Procedure | Surgery | | | | 2018 | Pass | | | | +--------+ + + + + documented as of this encounter Visit Diagnoses Not on filedocumented in this encounter"
--- OUTSIDE RECORDS SUMMARY | ~2019-05-20 | XMS | Encounter Summary ---
Demographics + + + | Address | [address] | | | [place] [address] | + + + | Home Phone [...] + +------+ + | Care Tool Maker Apprentice Name | Role | Phone | [...] | | | | | | [facility] [address] [facility] | | | | | | [facility] | | | | | | [place], [place] | | | | | | [address] | | | +--------+ + + + [...] | | 2018 | Visit | | [address] | | | | | | [place], [place] | | | | | | [address] | | | | | | [phone] | | | | | | | | +--------+ + + + + | 07/08/ | Procedure | Surgery | | | | 2018 | Pass | | | | +--------+ + + + + documented as of this encounter Visit Diagnoses Not on filedocumented in this encounter"
--- OUTSIDE RECORDS SUMMARY | ~2019-05-20 | XMS | Encounter Summary ---
Demographics + + + | Address | [address] | | | [place] [address] | + + + | Home Phone [...] [place], [place] | | | | | [address] | | + + + + + | Ellie Vang | ECON | Unknown | | + + + + + Care Team Providers + +------+ + | Care Layout Inspector Name | Role | Phone | + +------+ + | Kenyatta Cardenas MD | PCP | | + +------+ + Encounter Details +--------+ + + + + | Date | Type | Department | Care Team | Description | +--------+ + + + + | 03/10/ | Pharmacy | [facility] | | | | 2018 | Visit | & [facility] | | | | | | [address] | | | | | | Mailcode: Center | | | | | | [facility] and | | | | | | [facility] 1 | | | | | | [place], [place] | | | | | | [address] | | | | | | [phone] | | | +--------+ + + + [...] | | | | | [place] [address], [place] | | | | | | [address] | | | | | | [phone] | | | | | | | | +--------+ + + + + | 07/08/ | Procedure | Surgery | | | | 2019 | Pass | | | | +--------+ + + + + documented as of this encounter Visit Diagnoses Not on filedocumented in this encounter"
--- OUTSIDE RECORDS SUMMARY | ~2019-05-20 | XMS | Encounter Summary ---
Demographics + + + | Address | [address] | | | [place] [address] | + + + | Home Phone [...] [place], [place] | | | | | [address] | | + + + + + | Ellie Vang | ECON | Unknown | | + + + + + Care Team Providers + +------+ + | Care Children'S Aide Name | Role | Phone | [...] | | 2018 | | Preventive at [facility] | [address] | (Phentermine 37.5mg) | | | | [address] | [place], [place] | | | | | Mailcode: EARL | [address] | | | | | [facility] | [phone] | | | | | and [address], | | | | | | [address] | | | | | | [place], [place] | | | | | | [address] | | | | | | [phone] | | | +--------+ + + + [...] | | | | | [place], [place] | | | | | | [address] | | | | | | [phone] | | | | | | | | +--------+ + + + + | 07/08/ | Procedure | Surgery | | | | 2019 | Pass | | | | +--------+ + + + + documented as of this encounter Visit Diagnoses Not on filedocumented in this encounter"
--- OUTSIDE RECORDS SUMMARY | ~2019-05-20 | XMS | Encounter Summary ---
Demographics + + + | Address | [address] | | | [place] [address] | + + + | Home Phone [...] [place], [place] | | | | | [address] | | + + + + + [...] Encounter, Provider, | | | | | [facility] | MD [address] | | | | | [address] | [place] [address] | | | | | Mailcode: OC2L | | | | | | [facility] | | | | | | and Healing, | | | | | | [address] | | | | | | [place], [place] | | | | | | [address] | | | | | | [phone] | | | +--------+ + + + [...] | | | | | [place], [place] | | | | | | [address] | | | | | | [phone] | | | | | | | [...] | + + + | MRN: | [facility] | | [id number] Date: 04/07/2019Patient Name: Elzbieta Curtis #: | ENDOSCOPY | | [id number] of : 1975CSN: [id number] Type: | | | AmbulatoryRoom: Endo 5Procedure: Upper GI | | | endoscopyIndications: Generalized abdominal pain, Nausea | | | with vomitingProviders: TAL LUND MD | | | (Doctor), BERNARDO BERNARD RN (Nurse), | | | [employer] (Cocktail Server)Referring MD: SYLVIA Kilpatrick | | | KENNY [...] | | | The Olympus [id number] Endoscope #[id number] | | | was introduced through the [...]
--- OUTSIDE RECORDS SUMMARY | ~2019-05-20 | XMS | Encounter Summary ---
Demographics + + + | Address | [address] | | | [place] [address] | + + + | Home Phone [...] [place], [place] | | | | | [address] | | + + + + + | Ellie Vang | ECON | Unknown | | + + + + + Care Team Providers + +------+ + | Care Obiee Consultant Name | Role | Phone | [...] | 2019 | | Preventive at [facility] | [address] | stop any | | | | [address] | Ave [place], [place] | medications? ) | | | | Mailcode: Mihaela | [address] | | | | | [facility] | [phone] | | | | | and Healing, | | | | | | [address] | | | | | | [place], [place] | | | | | | [address] | | | | | | [phone] | | | +--------+ + + + [...] | | 2018 | Visit | | [address] | | | | | | [place], [place] | | | | | | [address] | | | | | | [phone] | | | | | | | | +--------+ + + + + | 07/08/ | Procedure | Surgery | | | | 2018 | Pass | | | | +--------+ + + + + documented as of this encounter Visit Diagnoses Not on filedocumented in this encounter"
--- OUTSIDE RECORDS SUMMARY | ~2019-05-20 | XMS | Encounter Summary ---
Demographics + + + | Address | [address] | | | [place] [address] | + + + | Home Phone [...] [place], [place] | | | | | [address] | | + + + + + | Ellie Vang | ECON | Unknown | | + + + + + Care Team Providers + +------+ + | Care Tree Farmer Name | Role | Phone | [...] | | | [address] | [facility] | | | | | Mailcode: Center | [place], [place] | | | | | [facility] Health and | [address] | | | | | [facility] | [phone] | | | | | [place], [place] | | | | | | [address] | | | | | | [phone] | | | +--------+ + + + [...] | | | | | [place], [place] | | | | | | [address] | | | | | | [phone] | | | | | | | | +--------+ + + + + | 07/08/ | Procedure | Surgery | | | | 2019 | Pass | | | | +--------+ + + + + documented as of this encounter Visit Diagnoses Not on filedocumented in this encounter"
--- OUTSIDE RECORDS SUMMARY | ~2019-05-20 | XMS | Encounter Summary ---
Demographics + + + | Address | [address] | | | [place] [address] | + + + | Home Phone [...] [place], [place] | | | | | [address] | | + + + + + | Ellie Vang | ECON | Unknown | | + + + + + Care Team Providers + +------+ + | Care Conveyor Loader Name | Role | Phone | [...] | | 2018 | | Center at [facility] [address] | MD [address] | | | | | [address] | [place], [place] | | | | | Mailcode: [place] | [address] | | | | | [facility] and | [phone] | | | | | [place] [address] | | | | | | [place], [place] | | | | | | [address] | | | | | | [phone] | | | +--------+--------+ + + + [...] | | | | Alma Delia [place], [place] | | | | | | [address] | | | | | | [phone] | | | | | | | | +--------+ + + + + | 07/08/ | Procedure | Surgery | | | | 2018 | Pass | | | | +--------+ + + + + documented as of this encounter Visit Diagnoses Not on filedocumented in this encounter"
--- OUTSIDE RECORDS SUMMARY | ~2019-05-20 | XMS | Encounter Summary ---
Demographics + + + | Address | [address] | | | [place] [address] | + + + | Home Phone [...] [place], [place] | | | | | [address] | | + + + + + | Ellie Vang | ECON | Unknown | | + + + + + Care Team Providers + +------+ + | Care Ethanol Maintenance Mechanic Name | Role | Phone [...] | | | | | (HCC) | [place], [place] | Mailcode: | | | | | Procedures | [address] | [address] [facility] | | | | | CT ABDOMEN & | Phone: | Hospital | | | | | PELVIS WWO | | [place], [place] | | | | | IV CONTRAST | Fax: | [address] | | | | | [address] | [phone] | Phone: | | | | | ABDOMEN&PELV | | [phone] | | | | | IS | | Fax: | | | | | W/CONTRAST | | [phone] | | | | | See chart [...] | 2015 | Encounter | Lab at [facility] [address] | | | | | | Brenton Flannery Mailcode: | | | | | | [facility] | | | | | | Health and Healing, | | | | | | [place] [address], [facility] | | | | | | Floor [place], [place] | | | | | | [address] | | | | | | [phone] | | | +--------+ + + + [...] | | 2018 | Visit | | [address] | | | | | | [place], [place] | | | | | | [address] | | | | | | [phone] | | | | | | | [...] + + | JUSTINE PEÑA | [address] [facility] | [place] [address] | | | OF CARE TESTS | | | | + + + + + documented in this encounter Visit Diagnoses + + | Diagnosis | + + | Abdominal pain | + + | Morbid obesity (HCC) Morbid obesity | + + documented in this encounter"
--- OUTSIDE RECORDS SUMMARY | ~2019-05-20 | XMS | Encounter Summary ---
Demographics + + + | Address | [address] | | | [place] [address] | + + + | Home Phone [...] Team Providers + +------+ + | Care Want Ad Supervisor Name | Role | Phone | [...] repair incarcerated | | 2012 | | [facility] | [address] [facility] | ventral hernia; | | | | Admitting Desk | [address] | possible bowel | | | | Located on the | [place], [place] | resection; | | | | floor [address] [facility] | [address] | | | | | [address] | [phone] | | | | | [place], [place] | | | | | | [address] | | | +--------+---------+ + + + [...] yuriy tral hernia. She was transferred from [place] for surgical evaluation of possible incarcer ated [...] Cipro. POD 5 she was discharged ho mt, tolerating a diabetic diet. Having bowel function. [...] yuriy tral hernia. She was transferred from [place] for surgical evaluation of possible incarcer ated [...] Cipro. POD 5 she was discharged ho mt, tolerating a diabetic diet. Having bowel function. [...] keeping you from eating and drinking, Call [phone]. It is important to stay hydrated! If [...] taking narcotic that contain Tylenol (acetaminophen) Example: [place], Lortab, Vicodin, hydrocodone/APAP, Percocet, Tylenol #3 PAIN MEDICATIONS are ONLY REFILLED during CLINIC APPOINTMENTS. Please call [phone] to schedule an appointment. Your Follow-Up Plan Follow up with ROBIN MEJIA in 2 weeks. Contact information: [address] [facility] [address] Vitals on discharge: Ht 154.9 cm (5' 0.98")( < 3 %ile), Wt 180.94 kg (398 lbs 14.4 oz)( < 3 %ile), BP 142/74, Pulse 94, Temperature 36.4 C (97.5 F), RR 16, SpO2 95%, BMI 75.41 kg/ (m^2). Outstanding labs/studies: None Discharging Physician: AMINTA WILSNO MD Attending Physician: Andie Brian MD documented [...] might be different f rom the original. [facility] DEPARTMENT OF SURGERY EMERGENCY GENERAL SURGERY Division [...] without erythema and no infecti on noted. Graham intact : good urine output and Patient [...] clinic [place] [address] pager number [place] [phone] [facility] [address] Aminta Goodwin Md - 11/11/2012 7:40 AM PDT [facility] DEPARTMENT OF SURGERY EMERGENCY GENERAL SURGERY Division of Trauma and Critical Care Attending Physician: Andie Brian MD Progress Note Note Date: 11/11/2012 Admission Date: 11/06/2012 DYLAN ROMERO, [id number] Hospital Day #5 INTERVAL EVENTS none acute [...] mg, Rectal, DAILY PRN, Aminta Wilson MD xsntbllmxa-nyauqdcmmveml-qzdvmtya (aka FIORICET) 50-325-40 mg 1 Tab, 1 [...] Jayne Ponce MD, 1 mg at 11/10/12801 horqcieyou-iylntkulppxnt-soctcsko (aka FIORICET) 50-325-40 mg 1 Tab, 1 [...] in preservative free NaCl 0.9% 50 mL BOTTOM BLEACHER infusion, , Intravenous, KIESHA NUOUS, Aracely Flores [...] diet -add bowel regimen Acute pain -HM BOTTOM BLEACHER, tylenol -convert to oral pain medication once [...] Fluids: LR 125ml/hr Feeding: NPO Analgesia: Dilaudid BOTTOM BLEACHER Sedation: not indicated Thromboprophylaxis: enoxaparin Head of [...] Ponce MD, 1 mg at 11/09/12 0855 cnxvuenutz-vluxvfprlugrw-txhvyjbp (aka FIORICET) 50-325-40 mg 1 Tab, 1 [...] in preservative free NaCl 0.9% 50 mL BOTTOM BLEACHER infusion, , Intravenous, KIESHA NUOUS, Aracely Flores [...] drainage <30ml for 24hrs Acute pain -HM BOTTOM BLEACHER, tylenol Diabetes: -insulin gtt not started due [...] Fluids: LR 125ml/hr Feeding: NPO Analgesia: Dilaudid BOTTOM BLEACHER Sedation: not indicated Thromboprophylaxis: enoxaparin Head of bed: > 30 Ulcer prophylaxis: pepcid Glycemic control: adequate Activity/PT/OT: Ongoing Yogurt: ABX on Probiotics:yes AMINTA WILSON MD General Surgery, R1 aleb Walker S, N P - 11/08/2012 8:49 AM PDT [facility] DEPARTMENT OF SURGERY EMERGENCY GENERAL SURGERY Division of Trauma and Critical Care Attending Physician: Andie Brian MD Progress Note Note Date: 11/08/2012 Admission Date: 11/06/2012 DYLAN ROMERO, [id number] Hospital Day #2 INTERVAL EVENTS NO SUBJECTIVE Pain well controlled; has headache attributed to dilaudid BOTTOM BLEACHER Tylenol did not help. Flatus: YES Tolerating [...] trials today. -DC ruiz Acute pain -HM BOTTOM BLEACHER, tylenol Diabetes: -insulin gtt not started due [...] Fluids: LR 125ml/hr Feeding: NPO Analgesia: Dilaudid BOTTOM BLEACHER Sedation: not indicated Thromboprophylaxis: enoxaparin Head of bed: > 30 Ulcer prophylaxis: pepcid Glycemic control: adequate Activity/PT/OT: Ongoing Yogurt: ABX on Probiotics: No KALEB WALKER NP [facility] [address] [place] [facility] elvin Stephens MD - 11/07/2012 9:51 PM [...] 7.33* PCO2 49* PO2 113* HCO3 25 HSLYV4PDV 26 B8KIALOW 98.3* C6VIILRMQ -- FIO2 60 ABGEXCESS -0.9 Assessment, Medical Decision Making and Plan 1. Incarcerated hernia, now s/p repair and panniculectomy -Binder, pain control, minimize nausea and coughing PRN. -NG clamping trials today. 2. Acute pain -HM BOTTOM BLEACHER, tylenol 3. Diabetes: -insulin gtt 4. Morbid [...] Dione Grimes MD R-2, General Surgery Pager: [phone] [facility] [place] Department of Surgery Trauma ICU Team Pager (24hrs/day): [phone] I was present with the resident during the history and exam. I discussed the case with the resident and agree with the findings and plan as documented in the resident s note. KELVIN STEPHENS MD [facility] [address] [place] [address] [id number] Onur Graves MD - 11/07/2012 2:37 AM [...] in preservative free NaCl 0.9% 50 mL BOTTOM BLEACHER infusion Intravenous CON TINUOUS Aracely Flores, DO [...] POD#1 s/p primary repair. 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 seo coordinator and prn tylenol, continue prozac and zyprexa [...] F: probable remain NPO today A: dilaudid seo coordinator, prn tylenol S: prn benzos as she is at home T: will start prophylactic lovenox today H: HOB >30 degrees U: pepcid G: insulin gtt ONUR ALLEN MD, PGY3 [place] [address] [id number]/uhs8t [place] [address] Onelia Shrestha MD - 11/06/2012 8:41 AM PDT [facility] DEPARTMENT OF SURGERY Division of Trauma and Critical Care Emergency General Surgery / Acute Care Surgery Attending Physician: Andie Brian MD Note Date: 11/06/2012 Admission Date: 11/06/2012 DYLAN ROMERO, [id number] Hospital Day #0 OVERNIGHT EVENTS: anxious SUBJECTIVE: [...] wwp LABS: reviewed and are available in [facility] (if new data) IMAGING: VASCULAR: IMPRESSION: [...] | | | | | [place] Del[place], [place] | | | | | | [address] | | | | | | [phone] | | | | | | | [...] Mae | | | | | | [place] | | | | + + + [...] AMES | [address] | [place], [place] | | | JUSTINE DAWN OF JAKY | [facility] | [address] | | | TESTS | | | [...] - YAKOVAM | [address] | [place], [place] | | | L[place]PEZ POINT OF CARE | [facility] | [address] | | | TESTS | | | [...] [facility] | [address] | [place] [address] | | | SERVICES, CORE | PARK [...] [facility] | [address] | [place] [address] | | | SERVICES, CORE | CLARENCE [...] CENTER LABORATORY | [address] | [place] [address] | | | LYDIA RANGEL | CLARENCE [...] - KWAKU | [address] | [place], [place] | | | JUSTINE DAWN OF CARE | [facility] | [address] | | | TESTS | | | [...] 60 - 99 mg/dL | [facility] - | | | GLUCOSE, [...] AMES | [address] | [place], [place] | | | JUSTINE DAWN OF CARE | [facility] | [address] | | | TESTS | | | [...] KWAKU | [address] | [place], [place] | | | JUSTINE DAWN OF JAKY | [address] | [address] | | | TESTS | | | [...] - KWAKU | [address] | [place], [place] | | | JUSTINE DAWN OF CARE | [facility] | [address] | | | TESTS | | | [...] 60 - 99 mg/dL | [facility] - | | | GLUCOSE, [...] AMES | [address] | [place], [place] | | | L[place] POINT OF CARE | [address] | [address] | | | TESTS | | | [...] + | [facility] | [address] [facility] | [place] [address] | | | SERVICES, CORE | CLARENCE [...] [facility] | [address] [facility] | [place] [address] | | | CLAIRE, LYDIA | CLARENCE [...] CENTER LABORATORY | [address] | [place] [address] | | | SERVICES, CORE | CLARENCE [...] 60 - 99 mg/dL | [facility] - | | | GLUCOSE, [...] AMES | [address] | [place], [place] | | | JUSTINE DAWN OF CARE | [address] | [address] | | | TESTS | | | [...] YAKOVAM | [address] | [place], [place] | | | JUSTINE DAWN OF JAKY | [address] | [address] | | | TESTS | | | [...] MARQUAM | [address] | [place], [place] | | | L[place]PE[place] POINT OF CARE | [address] | [address] | | | TESTS | | | [...] AMES | [address] | [place], [place] | | | JUSTINE DAWN OF CARE | [address] | [address] | | | TESTS | | | [...] MARQUAM | [address] | [place], [place] | | | JUSTINE DAWN OF JAKY | [facility] | [address] | | | TESTS | | | [...] [facility] | [address] | [place] [address] | | | SERVICES, CORE | CLARENCE [...] [facility] | [address] | [place] [address] | | | SERVICES, CORE | PARK [...] [facility] | [address] | [place] [address] | | | SERVICES, CORE | CLARENCE [...] MARQUAM | [address] | [place] | | | JUSTINE DAWN OF CARE | [address] | [address] | | | TESTS | | | [...] MARPATAM | [address] | [place], [place] | | | JUSTINE DAWN OF CARE | [facility] | [address] | | | TESTS | | | [...] AMES | [address] | [place], [place] | | | JUSTINE DAWN OF CARE | [address] | [address] | | | TESTS | | | [...] | | | Final CULTURE | | [place] | | | | RESULT:>100,000 cfu/ml | [...] + | [facility] | [address] | [place] [address] | | | [place] | | | | + + + [...] + | [facility] | [address] | [place] [address] | | | SERVICES, CORE | CLARENCE [...] CENTER LABORATORY | [address] | [place] [address] | | | CLAIRE, [facility] | [address] | | | + + + + + CAPILLARY BLOOD GLUCOSE (NO CHG), POC (11/09/2012 6:10 AM PDT) + +-------+ + + + | Component | Value | Ref Range | Performed | Pathologist | | | | | At | Signature | + +-------+ + + + | BLOOD | 90 | 60 - 99 mg/dL | [facility] - | | | GLUCOSE, [...] AMES | [address] | [place], [place] | | | JUSTINE DAWN OF CARE | [facility] | [address] | | | TESTS | | | [...] [facility]ENTER LAB[facility] | [address] | [place] [address] | | | CLAIRE, [facility] | [address] | | | + [...] [facility] | [address] | [place] [address] | | | SERVICES, CORE | PARK [...] CENTER LAB[facility] | [address] | [place] [address] | | | SERVICES, CORE | CLARENCE [...] 60 - 99 mg/dL | [facility] - | | | GLUCOSE, [...] + + + | NKECHI AMES | [address] | [place], [place] | | | L[place]PEZ [place] [facility] | [address] | [address] | | | TESTS | | | [...] MARQUAM | [address] | [place], [place] | | | JUSTINE DAWN OF CARE | [address] | [address] | | | TESTS | | | [...] - KWAKU | [address] | [place], [place] | | | L[place] [facility] [facility] | [facility] | [address] | | | TESTS | | | [...] [facility] | [address] | [place] [address] | | | SERVICES, CORE | [address] | | | + + + + + MAGNESIUM, PLASMA (11/08/2012 7:48 AM PDT) + +---------+ + + + | Component | Value | Ref Range | Performed | Pathologist | | | | | At | Signature | + +---------+ + + + | MAGNESIUM,P | 1.4 (L) | 1.8 - 2.5 mg/dL | [facility] | | | LASMA | | | [...] + | [facility] | [address] | [place] [address] | | | SERVICES, CORE | CLARENCE [...] CENTER LAB[facility]ATORY | [address] | [place] [address] | | | LYDIA RANGEL | CLARENCE [...] - MARQUAM | [address] | [place], [place] | | | L[place]PEZ POINT OF CARE | [address] | [address] | | | TESTS | | | [...] AMES | [address] | [place], [place] | | | L[place]PEZ POINT OF CARE | [address] | [address] | | | TESTS | | | [...] MARQUAM | [address] | [place] | | | JUSTINE DAWN OF CARE | [address] | [address] | | | TESTS | | | [...] LABORATORY | [address] [facility] | [place] [address] | | | SERVICES, CORE | PARK [...] [facility] | [address] | [place] [address] | | | SERVICES, CORE | PARK [...] | [facility] | [address] | [place] [address] | | | SERVICES, CORE | [address] | | | + + + + + X-RAY PORTABLE CHEST 1 VIEW (11/06/2012 4:46 PM PDT) + + + + + + | Component | Value | Ref Range | Performed | Pathologist | | | | | At | Signature | + + + + + + | X-RAY | STUDY: ND CHEST 1 VIEW | | | | | PORTABLE | 11/06/12 16:46:00 | | | | | CHEST 1 | INDICATION: Right upper | | | | | VIEW | lobe opacity. | | | | | | COMPARISON: Earlier same | | | | | | day a STUDY: ND CHEST 1 | | | | | [...] + + + | X-RAY | STUDY: ND CHEST 1 VIEW | | | | [...] [facility] | [address] | [place] [address] | | | SERVICES, CORE | PARK [...] CENTER LABORATORY | [address] | [place] [address] | | | CLAIRE, LYDIA | PARK [...] [facility] | [address] | [place] [address] | | | SERVICES, CORE | CLAERNCE [...] KWAKU | [address] | [place], [place] | | | JUSTINE DAWN OF JAKY | [address] | [address] | | | TESTS | | | [...] KWAKU | [address] | [place], [place] | | | JUSTINE DAWN OF CARE | [address] | [address] | | | TESTS | | | [...] KWAKU | [address] | [place], [place] | | | JUSTINE DAWN OF JAKY | [facility] | [address] | | | TESTS | | | [...] MARQUAM | [address] | [place] | | | JUSTINE [facility] | [address] | [address] | | | TESTS | | | [...] AMES | [address] | [place] | | | JUSTINE DAWN OF JAKY | [facility] | [address] | | | TESTS | | | [...] MARQUAM | [address] | [place], [place] | | | JUSTINE DAWN OF CARE | [facility] | [address] | | | TESTS | | | [...] MARQUAM | [address] | [place], [place] | | | JUSTINE DAWN OF JAKY | [facility] | [address] | | | TESTS | | | [...] AMES | [address] | [place], [place] | | | L[place]PEZ POINT OF CARE | [address] | [address] | | | TESTS | | | [...] MARQUAM | [address] | [place], [place] | | | JUSTINE DAWN OF CARE | [facility] | [address] | | | TESTS | | | [...] AMES | [address] | [place], [place] | | | L[place]PEZ POINT OF CARE | [address] | [address] | | | TESTS | | | [...] KWAKU | [address] | [place], [place] | | | JUSTINE DAWN OF JAKY | [address] | [address] | | | TESTS | | | [...] CENTER LAB[facility] | [address] | [place] [address] | | | SERVICES, | [address] [...] (H) | 60 - 99 mg/dL | [facility] - | | | GLUCOSE, | | [...] AMES | [address] | [place], [place] | | | JUSTINE DAWN OF JAKY | [facility] | [address] | | | TESTS | | | [...] [facility] | [address] | [place] [address] | | | SERVICES, | [address] [...] [facility] | [address] | [place] [address] | | | SERVICES, | [address] [...] + | [facility] | [address] | [place] [address] | | | SERVICES, LYDIA | CLARENCE [...] [facility] | [address] | [place] [address] | | | SERVICES, LYDIA | PARK [...] [facility] | [address] | [place] [address] | | | SERVICES, CORE | PARK [...] [facility] | [address] | [place] [address] | | | SERVICES, CORE | PARK [...] [facility] | [address] | [place] [address] | | | LYDIA RANGEL | CLARENCE [...] view image for the detailed interpretation from [employer] results. | CARDIOLOGY | + + + + + + + + | Performing | Address | City/State/Zipcode | Phone Number | | Organization | | | | + + + + + | [facility] | [address] | [place], [place] | | | CARDIOLOGY | [facility] | [address] | | + + + + + [...] [facility] | [address] | [place] [address] | | | SERVICES, CORE | CLARENCE [...] + | [facility] | [address] | [place] [address] | | | SERVICES, LYDIA | [address] | | | + + + + + documented in this encounter Visit Diagnoses + + | Diagnosis | + + | Incarcerated ventral hernia Ventral hernia, unspecified, with obstruction | + + documented in this encounter
--- OUTSIDE RECORDS SUMMARY | ~2019-05-20 | XMS | Encounter Summary ---
Demographics + + + | Address | [address] | | | [place] [address] | + + + | Home Phone [...] + | Katalina Padilla | ECON | [address] | | | | | [place], [place] | | | | | [address] | | + + + + + | Ellie Vang | ECON | Unknown | | + + + + + Care Team Providers + +------+ + | Care Eye Clinic Manager Name | Role | Phone | [...] | | | | | | [place] [facility] | | | | | | | [facility] and | | | | | | | Healing, | | | | | | | Building [address] | | | | | | | [place], [place] | | | | | | | [address] | | | | | | | Phone: | | | | | | | [phone] | | | | | | | Fax: | | | | | | | [phone] | +--------+--------+ + + + + Encounter [...] | | | | Mailcode: Center | [place], [place] | ([facility]) | | | | for Health and | [address] | | | | | [facility] [address] | | | | | | [place], [place] | | | | | | [address] | | | | | | [phone] | | | +--------+---------+ + + + [...] of Visit: 10:06 to 10:32 (26 minutes zbgb-av-viqq with patient & friend) SUBJECTIVE: Is surprised she has gained weight; is disappointed. Still following her usual meal plan. H as d/c'd diet soda. Still struggling w/ eating out of boredom - choosing 100 kcal snacks but having ~3 of them at a time. Not as much emotional eating lately. Has been keeping food log s (on paper) - avg 5574-3856 kcal/d. Trying to increase activity. B: Atkins [...] provided. Olga L[address], [place] Pager [phone] documented in this en counter Plan of [...] | | | | | [place], [place] | | | | | | [address] | | | | | | [phone] | | | | | | | [...] | [place] MNT RE-ASSESSMNT | Routin | 06/16/2013 | Morbid obesity | | | X15MIN | e | 1:32 PM | ([facility]) Type 2 [...]
--- OUTSIDE RECORDS SUMMARY | ~2019-05-20 | XMS | Encounter Summary ---
Demographics + + + | Address | [address] | | | [place] [address] | + + + | Home Phone [...] [place], [place] | | | | | [address] | | + + + + + | Ellie Vang | ECON | Unknown | | + + + + + Care Team Providers + +------+ + | Care Principal Planner Name | Role | Phone | [...] | | | | | | | [address] | | | | | | | [address] | | | | | | | [place], | | | | | | | [place] | | | | | | | [address] | | | | | | | Phone: | | | | | | | [phone] | | | | | | | Fax: | | | | | | | [phone] | +--------+--------+ + + + + Encounter Details +--------+---------+ + + + | Date | Type | Department | Care Team | Description | +--------+---------+ + + + | 04/14/ | Office | Digestive Health | Hernandez Brian, | Morbid obesity (HCC) | | 2013 | Visit | Center at [facility] [address] | [address] | (Primary Dx); Type | | | | [address] | [address] | 2 diabetes mellitus | | | | Mailcode: Center | [place], [place] | ([facility]); [facility] | | | | for [facility] and | [address] | (obstructive sleep | | | | [facility] 2 | [phone] | apnea); Edema | | | | [place], [place] | | | | | | [address] | | | | | | [phone] | | | +--------+---------+ + + + [...] this year, she was tr ansferred from [place] for surgical evaluation of possible incarcerated ventral [...] with close followup by her PCP in [place] in the interim. Dr. Guillory in [place] has been following her since January, with CT scan obtained at [facility] in [place] 02/09/2013 (images in [facility]), demonstrating "recurrent hypogastric [...] to follow up with her providers at [facility] to include a visi t [...] r weight loss efforts. She saw a studio coordinator today and Melida came in to discuss [...] and well perfused. ABDOMEN: Type III pannus fci to her knees. There is a well [...] | | | | | [address] [place], [place] | | | | | | [address] | | | | | | [phone] | | | | | | | [...] | Type 2 diabetes mellitus ([facility]) Type II or unspecified type diabetes mellitus without | | mention of complication, not stated as uncontrolled | + + | [facility] (obstructive sleep apnea) Obstructive sleep apnea (adult) (pediatric) | + + | Edema | + + documented in this encounter
--- OUTSIDE RECORDS SUMMARY | ~2019-05-20 | XMS | Encounter Summary ---
Demographics + + + | Address | [address] | | | [place] [address] | + + + | Home Phone [...] [place], [place] | | | | | [address] | | + + + + + | Ellie Vang | ECON | Unknown | | + + + + + Care Team Providers + +------+ + | Care Vibrator Equipment Tester Name | Role | Phone | [...] | | 2015 | | Center at [facility] [address] | [address] | | | | | [address] | Lesly Gutiérrez [place], | | | | | Mailcode: [place] | [place] [address] | | | | | for Health and | | | | | | [facility], [place] [address] | | | | | | [place], [place] | | | | | | [address] | | | | | | [phone] | | | +--------+ + + + [...] | | | | [place], [place] | | | | | | [address] | | | | | | [phone] | | | | | | | | +--------+ + + + + | 07/08/ | Procedure | Surgery | | | | 2018 | Pass | | | | +--------+ + + + + documented as of this encounter Visit Diagnoses Not on filedocumented in this encounter"
--- OUTSIDE RECORDS SUMMARY | ~2019-05-20 | XMS | Encounter Summary ---
[...] [place], [place] | | | | | [address] | | + + + + + | Ellie Vang | ECON | Unknown | | + + + + + Care Team Providers + +------+ + | Care Nail Technician Name | Role | Phone | + +------+ + | Fadi Goodrich DO | PCP | | + +------+ + Encounter Details +--------+ + + + + | Date | Type | Department | Care Team | Description | +--------+ + + + + | 11/09/ | Abstract | Cardiology | Randell Franks, | | | 2014 | | Preventive at [facility] | MD [address] | | | | | [address] | Ave [place], [place] | | | | | Mailcode: CH9A | [address] | | | | | [facility] | [phone] | | | | | and Healing, | | | | | | Building [address] | | | | | | [place], [place] | | | | | | [address] | | | | | | [phone] | | | +--------+ + + + [...] | | | | | [address], [place] | | | | | | [address] | | | | | | [phone] | | | | | | | | +--------+ + + + + | 07/08/ | Procedure | Surgery | | | | 2019 | Pass | | | | +--------+ + + + + documented as of this encounter Visit Diagnoses Not on filedocumented in this encounter"
--- OUTSIDE RECORDS SUMMARY | ~2019-05-20 | XMS | Encounter Summary ---
Demographics + + + | Address | [address] | | | [place] [address] | + + + | Home Phone [...] + | Katalina Padilla | ECON | [address] | | | | | [place], [place] | | | | | [address] | | + + + + + | Ellie Vang | ECON | Unknown | | + + + + + Care Team Providers + +------+ + | Care Records Administrator Name | Role | Phone | [...] | | | | Mailcode: Center | [place], [place] | with insulin therapy | | | | for Health and | [address] | (HCC) | | | | [facility] 2 | [phone] | | | | | [place], [place] | | | | | | [address] | | | | | | [phone] | | | +--------+---------+ + + + [...] of Visit: 1:30 to 1:55 (25 minutes [id number] with patient). Pt seen tog ether with Rossana Espinoza RD (training) SUBJECTIVE: Working with RN to get access to [employer] water exercises. States she was down to 374lbs by following LRD but with complications (n/v, fainting) - need to obtain records from PCP [facility]. Food Allergies: No Current Physical Activity: Nothing - plans to start swimming this week Diet Recall [place] (100kcal) + Activia Light - 60kcal Atkins [...] post-surgery diet progression. 4. Call or send [employer] message to dietitian with any questions. Contact information was provided. Follow up with dietitian via telephone 1 week after beginning water exercises for weight ch addie. Yuli Chilsd RD, [facility], LD Pager# [phone] Rossana Espinoza MS, RD Pgr #[phone] documented in this enco unter Plan of [...] | | | | | [place] [address] [place], [place] | | | | | | [address] | | | | | | [phone] | | | | | | | [...] | [place] MNT RE-ASSESSMNT | Routin | 12/27/2014 | [...]
--- OUTSIDE RECORDS SUMMARY | ~2019-05-20 | XMS | Encounter Summary ---
Demographics + + + | Address | [address] | | | [place] [address] | + + + | Home Phone [...] [place], [place] | | | | | [address] | | + + + + + | Ellie Vang | ECON | Unknown | | + + + + + Care Team Providers + +------+ + | Care Antichecking Iron Worker Name | Role | Phone | + +------+ + | Fadi Goodrich DO | PCP | | + +------+ + Encounter Details +--------+ + + + + | Date | Type | Department | Care Team | Description | +--------+ + + + + | 06/02/ | Telephone | Digestive Health | Ronna Clarke, | | | 2017 | | Center at [facility] [address] | ACNP [address] | | | | | [address] | Ave [place], [place] | | | | | Mailcode: [place] | [address] | | | | | for Health and | [phone] | | | | | [facility] 2 | | | | | | [place], [place] | | | | | | [address] | | | | | | | [...] | 2018 | Visit | | MD [address] | | | | | | [place] [address], [place] | | | | | | [address] | | | | | | [phone] | | | | | | | | +--------+ + + + + | 07/08/ | Procedure | Surgery | | | | 2018 | Pass | | | | +--------+ + + + + documented as of this encounter Visit Diagnoses Not on filedocumented in this encounter"
--- OUTSIDE RECORDS SUMMARY | ~2019-05-20 | XMS | Encounter Summary ---
Demographics + + + | Address | [address] | | | [place] [address] | + + + | Home Phone [...] [place], [place] | | | | | [address] | | + + + + + | Ellie Vang | ECON | Unknown | | + + + + + Care Team Providers + +------+ + | Care Mortgage Coordinator Name | Role | Phone | [...] from Patient; | | 2017 | | [place] [address] | MD [address] | Postoperative | | | | Ave Mailcode: CH4S | [place], [place] | infection | | | | [facility] | [address] | | | | | and Healing, | [phone] | | | | | [place] [address] [facility] | | | | | | [place], [place] | | | | | | [address] | | | | | | [phone] | | | +--------+ + + + [...] [place] | | | | | | [address] | | | | | | [phone] | | | | | | | | +--------+ + + + + | 07/08/ | Procedure | Surgery | | | | 2019 | Pass | | | | +--------+ + + + + documented as of this encounter Visit Diagnoses Not on filedocumented in this encounter"
--- OUTSIDE RECORDS SUMMARY | ~2019-05-20 | XMS | Encounter Summary ---
Demographics + + + | Address | [address] | | | [place] [address] | + + + | Home Phone [...] [place], [place] | | | | | [address] | | + + + + + | Ellie Vang | ECON | Unknown | | + + + + + Care Team Providers + +------+ + | Care Quality Assurance Monitor Chassis Name | Role | Phone | + [...] | | 2018 | Visit | | [address] | | | | | | [place], [place] | | | | | | [address] | | | | | | [phone] | | | | | | | | +--------+ + + + + | 07/08/ | Procedure | Surgery | | | | 2018 | Pass | | | | +--------+ + + + + documented as of this encounter Visit Diagnoses Not on filedocumented in this encounter"
--- OUTSIDE RECORDS SUMMARY | ~2019-05-20 | XMS | Encounter Summary ---
Demographics + + + | Address | [address] | | | [place] [address] | + + + | Home Phone [...] Providers + +------+ + | Care Factory Process Workers Name | Role | Phone | [...] [id number] | | | | | | [facility] | | | | | | [place], [place] | | | | | | [address] | | | | | | [phone] | | | +--------+ + + + [...] | | 2019 | Visit | | [address] | | | | | | [place], [place] | | | | | | [address] | | | | | | [phone] | | | | | | | | +--------+ + + + + | 07/08/ | Procedure | Surgery | | | | 2019 | Pass | | | | +--------+ + + + + documented as of this encounter Visit Diagnoses Not on filedocumented in this encounter"
--- OUTSIDE RECORDS SUMMARY | ~2019-05-20 | XMS | Encounter Summary ---
Demographics + + + | Address | [address] | | | [place] [address] | + + + | Home Phone [...] [place], [place] | | | | | [address] | | + + + + + | Ellie Vang | ECON | Unknown | | + + + + + Care Team Providers + +------+ + | Care Recreation Programmer Name | Role | Phone | [...] INCISIONAL HERNIA | | 2015 | | [facility] | [address] | REPAIR | | | | Admitting Desk | [address] | | | | | Located on the 9 | [place], [place] | | | | | floor [address] | [address] | | | | | [address] | [phone] | | | | | [place], [place] | | | | | | [address] | | | +--------+---------+ + + + [...] port site who was transferre d to [facility] for concern of an incarcerated [...] mouth once daily. , Historical Med CALCIUM CRB&RDA-L8-KBY29-GENIS ORAL Take 1 tablet by mouth two [...] Randell Franks Cardiology Preventive at [facility] [phone] Cardiology 04/09/2015 1:00 PM Egs Ppv Tra Trauma Emergency General Surgery at [facility] [phone] [facility] Outstanding labs/studies: None Discharging Physician: GABO LANGSTON MD Attending Physician: Dr. Cantu PCP: Fadi Goodrich DO Signed: GABO LANGSTON MD Pager #[phone] Surgical Supervisor Personnel Clerks [facility] Associated attestation - Tye Carrillo DO - 03/12/2015 9:12 AM PDTAttending: I discussed this patient with the resident and agree with the assessment and plan as outlin ed in this note and participated in the planning of care. Tye Carrillo DO, SIDRA, FACS Division of Trauma, Critical Care & Acute Care Surgery [facility] [phone] documented in this encounter Medications at Time of Discharge + + + +---------+--------+ + | Medication | Sig | Dispensed | Refills | Start | End Date | | | | | | Date | | + + + +---------+--------+ + | CALCIUM | Take 2 tablets by | | 0 | | | | CRB&XIC-M4-SNK96-GEN | mouth two times | | | [...] [facility] [place] DEPARTMENT OF SURGERY EMERGENCY GENERAL SURGERY Division [...] obesity with known ventral hernias transferred to [facility] for surgical managem ent of ventral hernia, now s/p repair. Post surgical pain: -patient ready for d/c, discussed f/u. Patient lives far away and has other appointments at [facility]. Will attempt to coordinate appointments. Discharge Plan: D/c today GABO LANGSTON MD Pager #[phone] Surgical Supervisor Personnel Clerks [facility] ick Mendez, Salomón rose R - 03/02/2015 1:12 PM PDT [facility] DEPARTMENT OF SURGERY EMERGENCY GENERAL SURGERY Division of Trauma and Critical Care Attending Physician: Shahid Cantu MD Progress Note Note Date: 03/02/2015 Admission Date: 2015 DYLAN ROMERO, Hospital Day #2 40 F PMH morbid obesity (BMI 71 today), DM2, depression, GERD, h/o stroke at age 18, and kn own ventral hernias transferred to [facility] for surgical treatment of suspected [...] obesity with known ventral hernias transferred to [facility] for surgical managem ent of [...] will be robel ing her home to [place], [place]. CALVIN ROMERO MD PGY-1 Anesthesiology Pager: [phone] [facility] A [address] [place] [address] Karthik Oneill MD - 03/02/2015 8:26 AM [id number] Calvin William Md - 03/01/2015 5:34 PM PDT Brief Post Operative Note: 40 F PMH morbid obesity (BMI 71 today), DM2, depression, GERD, h/o stroke at age 18, and kn own ventral hernias transferred to [facility] for surgical treatment of incarcerated [...] control CALVIN ROMERO MD PGY-1 Anesthesiology Pager: [phone] signed by Calvin Romero Md at 03/01/2015 [...] | | | | | [place], [place] | | | | | | [address] | | | | | | [phone] | | | | | | | [...] | | Attending Surgeon: Shahid Cantu MD Baker Pastry(s): Howie Angeles MD, R5 | | Karthik [...] 03/02/2015 08:25:39DT: 03/02/2015 09:15:57Job #: | | [id number] | | | |Dr. Chris Cantu was present and scrubbed for the entirety of the case. | | | | | | | |Karthik Gonzalez MD | | | |Pursuant to federal Medicare and Medicaid regulations I was present for the entire procedur e. | | | | | | | |Shahid Cantu MD | |Knowledge Architect | |Trauma, Critical Care & Acute Care Surgery | | | | | | | |Shahid Cantu MD | |TBK/CARLOSL | | | | | | /[id number] | + ---+ CAPILLARY BLOOD GLUCOSE (NO [...] MARQU[place] | [address] | [place], [place] | | | [facility] POINT OF CARE | [address] | [address] | | | TESTS | | | [...] + + + | NKECHI AMES | [address] | [place], [place] | | | [facility] POINT OF CARE | [address] | [address] | | | TESTS | | | [...] [place] | [address] | [place], [place] | | | [place] [facility]INT OF CARE | [address] | [address] | | | TESTS | | | [...] [place] | [address] | [place], [place] | | | [facility] POINT OF CARE | [address] | [address] | | | TESTS | | | [...] + + + | NKECHI AMES | [address] | [place], [place] | | | [place] POINT OF CARE | [address] | [address] | | | TESTS | | | [...] MARQUAM | [address] | [place], [place] | | | [place] POINT OF CARE | [address] | [address] | | | TESTS | | | [...] [facility] | [address] | [place] [address] | | | SERVICES, CORE | CLARENCE [...] | | | LABORATORY | | | K[facility]AK[facility] | | | SERVICES, | | | [...] | + + + + + | [facility] | [address] | [place] [address] | | | SERVICES, CORE | CLARENCE [...] AMES | [address] | [place], [place] | | | JUSTINE DAWN OF JAKY | [facility] | [address] | | | TESTS | | | [...] MARQUAM | [address] | [place], [place] | | | JUSTINE DAWN OF CARE | [address] | [address] | | | TESTS | | | [...] (H) | 60 - 99 mg/dL | [facility] - | | | GLUCOSE, [...] KWAKU | [address] | [place], [place] | | | JUSTINE DAWN OF JAKY | [address] | [address] | | | TESTS | | | [...] AMES | [address] | [place], [place] | | | JUSTINE DAWN OF JAKY | [facility] | [address] | | | TESTS | | | [...] - MARQUAM | [address] | [place], [place] | | | [facility] POINT OF CARE | [facility] | [address] | | | TESTS | | | [...] | + + + + + | [facility] | [address] | [place] [address] | | | LYDIA RANGEL | PARK [...] - MARQUAM | [address] | [place], [place] | | | [facility] [facility] | [address] | [address] | | | TESTS | | | [...]
--- OUTSIDE RECORDS SUMMARY | ~2019-05-20 | XMS | Encounter Summary ---
Demographics + + + | Address | [address] | | | [place] [address] | + + + | Home Phone [...] + | Katalina Padilla | ECON | [address] | | | | | [place], [place] | | | | | [address] | | + + + + + | Ellie Vang | ECON | Unknown | | + + + + + Care Team Providers + +------+ + | Care Senior Marketing Associate Name | Role | Phone | [...] 2017 | | Preventive at [facility] | MD [address] | | | | | [address] | Ave [place], [place] | | | | | Mailcode: CH9A | [address] | | | | | [facility] | [phone] | | | | | and [facility], | | | | | | Building [address] | | | | | | [place], [place] | | | | | | [address] | | | | | | [phone] | | | +--------+ + + + [...] | | | | [place], [place] | | | | | | [address] | | | | | | [phone] | | | | | | | | +--------+ + + + + | 07/08/ | Procedure | Surgery | | | | 2018 | Pass | | | | +--------+ + + + + documented as of this encounter Visit Diagnoses Not on filedocumented in this encounter"
--- OUTSIDE RECORDS SUMMARY | ~2019-05-20 | XMS | Encounter Summary ---
Demographics + + + | Address | [address] | | | [place] [address] | + + + | Home Phone [...] [place], [place] | | | | | [address] | | + + + + + | Ellie Vang | ECON | Unknown | | + + + + + Care Team Providers + +------+ + | Care Senior Staff Accountant Name | Role | Phone | + +------+ + | Fadi Goodrich DO | PCP | | + +------+ + Encounter Details +--------+ + + + + | Date | Type | Department | Care Team | Description | +--------+ + + + + | 07/06/ | Abstract | Digestive Health | Clinic, Surgery | | | 2016 | | [facility] at [facility] [address] | | | | | | [address] | | | | | | Mailcode: Desmet | | | | | | [facility] and | | | | | | [facility] 2 | | | | | | [place], [place] | | | | | | [address] | | | | | | [phone] | | | +--------+ + + + [...] | | 2019 | Visit | | [address] | | | | | | [place], [place] | | | | | | [address] | | | | | | [phone] | | | | | | | | +--------+ + + + + | 07/08/ | Procedure | Surgery | | | | 2019 | Pass | | | | +--------+ + + + + documented as of this encounter Visit Diagnoses Not on filedocumented in this encounter"
--- OUTSIDE RECORDS SUMMARY | ~2019-05-20 | XMS | Encounter Summary ---
Demographics + + + | Address | [address] | | | [place] [address] | + + + | Home Phone [...] [place], [place] | | | | | [address] | | + + + + + | Ellie Vang | ECON | Unknown | | + + + + + Care Team Providers + +------+ + | Care Warehouse Specialist Name | Role | Phone | [...] [address] | | | | | ([facility]) | [address] | [address] | | | | | Procedures | [place], [place] | [place], [place] | | | | | CONSULT TO | [address] | [address] | | | | | CAR | Phone: | Phone: | | | | | PREVENTATIVE | [phone] | [phone] | | | | | [facility] - | Fax: | Fax: | | | | | LIPIDS | [phone] | [phone] | +--------+--------+ + + + + Reason [...] | | 2 diabetes | [place], | [place], [place] | | | | | mellitus | [place] [address] | [address] | | | | | without | Phone: | Phone: | | | | | complication | [phone] | [phone] | | | | | (HCC) | Fax: | Fax: | | | | | Procedures | [phone] | [phone] | | | | | [place] EST [...] | 2017 | Visit | Preventive at [facility] | [address] | hypertension | | | | [address] | Ave [facility] [place] | (Primary Dx); Right | | | | Mailcode: CH9A | [address] | heart failure (HCC) | | | | [facility] | [phone] | | | | | and Healing, | | | | | | [address] | | | | | | [place], [place] | | | | | | [address] | | | | | | [phone] | | | +--------+---------+ + + + [...] 1 tablet by mouth once daily CALCIUM CRB&CNI-Q2-WZG76-GENIS [place]AL Take 2 tablets by mouth two [...] [place] | | | | | | [address] | | | | | | [phone] | | | | | | | [...]
--- OUTSIDE RECORDS SUMMARY | ~2019-05-20 | XMS | Encounter Summary ---
Demographics + + + | Address | [address] | | | [place] [address] | + + + | Home Phone [...] [place], [place] | | | | | [address] | | + + + + + | Ellie Vang | ECON | Unknown | | + + + + + Care Team Providers + +------+ + | Care E Business Specialist Name | Role | Phone | [...] PRINCE Giles | | | | | [place], [place] | [address] | | | 11/12/ | | [address] | [place], [place] | | | 2012 | | [phone] | [address] | | | | | | [phone] | | | | | | | [...] yuriy tral hernia. She was transferred from [place] for surgical evaluation of possible incarcer ated [...] Cipro. POD 5 she was discharged ho ca, tolerating a diabetic diet. Having bowel function. [...] yuriy tral hernia. She was transferred from [place] for surgical evaluation of possible incarcer ated [...] Cipro. POD 5 she was discharged ho ca, tolerating a diabetic diet. Having bowel function. [...] keeping you from eating and drinking, Call [phone]. It is important to stay hydrated! If [...] taking narcotic that contain Tylenol (acetaminophen) Example: Dania, Lortab, Vicodin, hydrocodone/APAP, Percocet, Tylenol #3 PAIN MEDICATIONS are ONLY REFILLED during CLINIC APPOINTMENTS. Please call [phone] to schedule an appointment. Your Follow-Up Plan Follow up with ROBIN MEJIA in 2 weeks. Contact information: [address] [facility] [address] Vitals on discharge: Ht 154.9 cm (5' [...] different f rom the original. [facility] DEPARTMENT OF SURGERY EMERGENCY GENERAL SURGERY Division [...] clinic - [place]. [place] [address] pager number [facility] [phone] [facility] [phone] Aminta Goodwin Md - 11/11/2012 7:40 AM PDT [facility] DEPARTMENT OF SURGERY EMERGENCY GENERAL SURGERY Division of Trauma and Critical Care Attending Physician: Andie Brian MD Progress Note Note Date: 11/11/2012 Admission Date: 11/06/2012 DYLAN ROMERO, [id number] Hospital Day #5 INTERVAL EVENTS none acute [...] mg, Rectal, DAILY PRN, Aminta Wilson MD xztxcoubwt-sqnyyigfzvhhe-phvpsesr (aka FIORICET) 50-325-40 mg 1 Tab, 1 [...] Jayne Ponce MD, 1 mg at 11/10/12801 flhnlxnjyu-cglxqaakdjjcn-bfgzbsnj (aka FIORICET) 50-325-40 mg 1 Tab, 1 Tab, Oral, Q4H PRN, Kaleb Walker NP, 1 Tab at 11/10/12801 ciprofloxacin (aka CIPRO) tablet 500 mg, 500 mg, Oral, BID, Aminta Wilson MD, 500 mg at 11/10/12801 dextrose IV 25 mL, 25 mL, Intravenous, PRN, Danny Lagos MD enoxaparin (aka LOVENOX) injection 30 mg, 30 mg, Subcutaneous, Q12H (Scheduled), Aracely hzu DO, 30 mg at 11/10/12802 famotidine in [...] in preservative free NaCl 0.9% 50 mL FERTILIZER MIXER infusion, , Intravenous, KIESHA NUGRANT, Aracely Mccartynato, [...] diet -add bowel regimen Acute pain -HM FERTILIZER MIXER, tylenol -convert to oral pain medication once [...] Fluids: LR 125ml/hr Feeding: NPO Analgesia: Dilaudid FERTILIZER MIXER Sedation: not indicated Thromboprophylaxis: enoxaparin Head of [...] Ponce MD, 1 mg at 11/09/12 0855 xvnrravfdo-ympvpnidntmpr-jbsxqiny (aka FIORICET) 50-325-40 mg 1 Tab, 1 [...] 1 mg, 1 mg, Intramuscular, PRN, Danny Lgaos MD glucose chewable tablet 16 g, 16 g, Oral, Q15MIN PRN, Danny Lagos MD HYDROmorphone 25 mg in preservative free NaCl 0.9% 50 mL FERTILIZER MIXER infusion, , Intravenous, KIESHA NUOUS, Aracely Cruzo, [...] drainage <30ml for 24hrs Acute pain -HM FERTILIZER MIXER, tylenol Diabetes: -insulin gtt not started due [...] Fluids: LR 125ml/hr Feeding: NPO Analgesia: Dilaudid FERTILIZER MIXER Sedation: not indicated Thromboprophylaxis: enoxaparin Head of bed: > 30 Ulcer prophylaxis: pepcid Glycemic control: adequate Activity/PT/OT: Ongoing Yogurt: ABX on Probiotics:yes AMINTA WILSON MD General Surgery, R1 Kaleb Martin N P - 11/08/2012 8:49 AM PDT [facility] DEPARTMENT OF SURGERY EMERGENCY GENERAL SURGERY Division of Trauma and Critical Care Attending Physician: Andie Brian MD Progress Note Note Date: 11/08/2012 Admission Date: 11/06/2012 DYLAN ROMERO, [id number] Hospital Day #2 INTERVAL EVENTS NO SUBJECTIVE Pain well controlled; has headache attributed to dilaudid FERTILIZER MIXER Tylenol did not help. Flatus: YES Tolerating [...] trials today. -DC ruiz Acute pain -HM FERTILIZER MIXER, tylenol Diabetes: -insulin gtt not started due [...] Fluids: LR 125ml/hr Feeding: NPO Analgesia: Dilaudid FERTILIZER MIXER Sedation: not indicated Thromboprophylaxis: enoxaparin Head of bed: > 30 Ulcer prophylaxis: pepcid Glycemic control: adequate Activity/PT/OT: Ongoing Yogurt: ABX on Probiotics: No KALEB WALKER NP [facility] [address] [place] [address] elvin Stephens MD - 11/07/2012 9:51 PM [...] 7.33* PCO2 49* PO2 113* HCO3 25 VVKNJ1HZW 26 F3BHBTVW 98.3* K7VYUEBUX -- FIO2 60 ABGEXCESS -0.9 Assessment, Medical Decision Making and Plan 1. Incarcerated hernia, now s/p repair and panniculectomy -Binder, pain control, minimize nausea and coughing PRN. -NG clamping trials today. 2. Acute pain -HM FERTILIZER MIXER, tylenol 3. Diabetes: -insulin gtt 4. Morbid [...] Dione Grimes MD R-2, General Surgery Pager: [phone] [facility] [place] Department of Surgery Trauma ICU Team Pager (24hrs/day): [phone] I was present with the resident during the history and exam. I discussed the case with the resident and agree with the findings and plan as documented in the resident s note. KELVIN STEPHENS MD [facility] [address] [facility] [place] [address] [id number] uOnur patton MD - 11/07/2012 2:37 AM [...] in preservative free NaCl 0.9% 50 mL FERTILIZER MIXER infusion Intravenous CON TINUOUS Aracely Flores, DO [...] POD#1 s/p primary repair. 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 health careers instructor and prn tylenol, continue prozac and zyprexa [...] F: probable remain NPO today A: dilaudid health careers instructor, prn tylenol S: prn benzos as she is at home T: will start prophylactic lovenox today H: HOB >30 degrees U: pepcid G: insulin gtt ONUR ALLEN MD, PGY3 [facility] [address] [id number] [place] [address] Onelia Shrestha MD - 11/06/2012 8:41 AM PDT [facility] DEPARTMENT OF SURGERY Division of Trauma and Critical Care Emergency General Surgery / Acute Care Surgery Attending Physician: Andie Brian MD Note Date: 11/06/2012 Admission Date: 11/06/2012 DYLAN ROMERO, [id number] Hospital Day #0 OVERNIGHT EVENTS: anxious SUBJECTIVE: [...] zenia LABS: reviewed and are available in Tirendo (if new data) IMAGING: VASCULAR: IMPRESSION: Dylan [...] | | 2018 | Visit | | [address] | | | | | | [place], [place] | | | | | | [address] | | | | | | [phone] | | | | | | | [...] Mae | | | | | | [place] | | | | + + + [...] AMES | [address] | [place], [place] | | | L[place]PEZ POINT OF CARE | [address] | [address] | | | TESTS | | | [...] MARQUAM | [address] | [place], [place] | | | JUSTINE DAWN OF CARE | [facility] | [address] | | | TESTS | | | [...] [facility] | [address] | [place] [address] | | | SERVICES, CORE | PARK [...] | [facility] | [address] [facility] | [place] [address] | | | SERVICES, CORE | CLARENCE [...] [facility] | [address] | [place] [address] | | | LYDIA RANGEL | PARK [...] - MARQUAM | [address] | [place], [place] | | | JUSTINE DAWN OF CARE | [facility] | [address] | | | TESTS | | | [...] (H) | 60 - 99 mg/dL | [facility] - | | | GLUCOSE, | | [...] YAKOVAM | [address] | [place], [place] | | | L[place] POINT OF CARE | [address] | [address] | | | TESTS | | | [...] AMES | [address] | [place], [place] | | | JUSTINE DAWN OF JAKY | [facility] | [address] | | | TESTS | | | [...] - MARQUAM | [address] | [place], [place] | | | JUSTINE DAWN OF CARE | [facility] | [address] | | | TESTS | | | [...] (H) | 60 - 99 mg/dL | [facility] - | | | GLUCOSE, | | [...] + + | [facility] | [address] | [place], [place] | | | JUSTINE DAWN OF [facility] | [address] | [address] | | | TESTS | | | [...] [facility] | [address] | [place] [address] | | | SERVICES, CORE | PARK [...] | [facility] | [address] | [place] [address] | | | LYDIA RANGEL | CLARENCE [...] | [facility] | [address] | [place] [address] | | | SERVICES, CORE | CLARENCE [...] (H) | 60 - 99 mg/dL | [facility] - | | | GLUCOSE, | | [...] AMES | [address] | [place], [place] | | | L[place]PEZ POINT OF CARE | [address] | [address] | | | TESTS | | | [...] KWAKU | [address] | [place], [place] | | | JUSTINE DAWN OF JAKY | [address] | [address] | | | TESTS | | | [...] KWAKU | [address] | [place], [place] | | | JUSTINE DAWN OF JAKY | [facility] | [address] | | | TESTS | | | [...] (H) | 60 - 99 mg/dL | [facility] - | | | GLUCOSE, | | [...] AMES | [address] | [place], [place] | | | L[place] POINT OF CARE | [address] | [address] | | | TESTS | | | [...] KWAKU | [address] | [place], [place] | | | JUSTINE DAWN OF JAKY | [address] | [address] | | | TESTS | | | [...] [facility] | [address] | [place] [address] | | | SERVICES, CORE | PARK [...] | [facility] | [address] | [place] [address] | | | SERVICES, CORE | PARK [...] | + + + + + | [facility] | [address] | [place] [address] | | | SERVICES, CORE | CLARENCE [...] MARQUAM | [address] | [place], [place] | | | JUSTINE DAWN OF CARE | [address] | [address] | | | TESTS | | | [...] MARPATAM | [address] | [place], [place] | | | L[place]PEZ POINT OF CARE | [address] | [address] | | | TESTS | | | [...] AMES | [address] | [place], [place] | | | JUSTINE DAWN OF CARE | [facility] | [address] | | | TESTS | | | [...] | | | Final CULTURE | | [place] | | | | RESULT:>100,000 cfu/ml | [...] + | [facility] - | [address] | [place] [address] | | | [place] | | | | + + + [...] | + + + + + | [employer] | [address] | [place] [address] | | | SERVICES, CORE | CLARENCE [...] | [facility] | [address] | [place] [address] | | | LYDIA RANGEL | CLARENCE [...] 90 | 60 - 99 mg/dL | [facility] - | | | GLUCOSE, | | [...] AMES | [address] | [place], [place] | | | JUSTINE DAWN OF [facility] | [address] | [address] | | | TESTS | | | [...] [facility] | [address] | [place] [address] | | | LYDIA RANGEL | CLARENCE [...] [facility] | [address] | [place] [address] | | | SERVICES, CORE | CLARENCE [...] [facility] | [address] | [place] [address] | | | [facility] | [address] | [...] 86 | 60 - 99 mg/dL | [facility] - | | | GLUCOSE, | | [...] KWAKU | [address] | [place], [place] | | | LPÓEZ POINT OF CARE | [address] | [address] | | | TESTS | | | [...] AMES | [address] | [place], [place] | | | JUSTINE DAWN OF JAKY | [facility] | [address] | | | TESTS | | | [...] KWAKU | [address] | [place], [place] | | | L[place]PEZ POINT OF [facility] | [facility] | [address] | | | TESTS | | | [...] | + + + + + | [facility] | [address] | [place] [address] | | | SERVICES, CORE | PARK [...] [facility] | [address] | [place] [address] | | | SERVICES, CORE | PARK [...] | + + + + + | [facility] | [address] | [place] [address] | | | CLAIRE, CORE | CLARENCE [...] KWAKU | [address] | [place], [place] | | | JUSTINE DAWN OF CARE | [facility] | [address] | | | TESTS | | | | + + + + + CAPILLARY BLOOD GLUCOSE (NO CHG), POC (11/07/2012 11:53 PM PDT) + +-------+ + + + | Component | Value | Ref Range | Performed | Pathologist | | | | | At | Signature | + +-------+ + + + | BLOOD | 94 | 60 - 99 mg/dL | [facility] - | | | GLUCOSE, | | [...] KWAKU | [address] | [place], [place] | | | L[place]PEZ POINT OF CARE | [address] | [address] | | | TESTS | | | [...] AMES | [address] | [place], [place] | | | JUSTINE DAWN OF JAKY | [facility] | [address] | | | TESTS | | | [...] [facility] | [address] | [place] [address] | | | SERVICES, LYDIA | CLARENCE [...] [facility] | [address] | [place] [address] | | | SERVICES, CORE | CLARENCE [...] KALEY ALEJANDRA | [address] | [place] [address] | | | SERVICES, CORE | PARK [...] | | + +---------+ + + | [facility] DEPARTMENT OF | | | | | [...] [facility] | [address] | [place] [address] | | | SERVICES, CORE | PARK [...] [facility] | [address] | [place] [address] | | | SERVICES, CORE | PARK [...] | [facility] | [address] | [place] [address] | | | SERVICES, CORE | CLARENCE [...] (H) | 60 - 99 mg/dL | [facility] - | | | GLUCOSE, | | [...] AMES | [address] | [place], [place] | | | ABRAHAN DAWN | [facility] | [address] | | | TESTS | | | [...] AMES | [address] | [place], [place] | | | JUSTINE DAWN OF JAKY | [facility] | [address] | | | TESTS | | | [...] KWAKU | [address] | [place], [place] | | | JUSTINE DAWN OF CARE | [facility] | [address] | | | TESTS | | | [...] - MARQUAM | [address] | [place], [place] | | | JUSTINE DAWN OF CARE | [facility] | [address] | | | TESTS | | | [...] + + + | [facility] AMES | [address] | [place], [place] | | | LÓPEZ POINT OF CARE | [address] | [address] | | | TESTS | | | [...] MARQUAM | [address] | [place], [place] | | | L[place]PEZ POINT OF CARE | [address] | [address] | | | TESTS | | | [...] - MARQUAM | [address] | [place], [place] | | | JUSTINE DAWN OF CARE | [address] | [address] | | | TESTS | | | [...] AMES | [address] | [place], [place] | | | JUSTINE DAWN OF CARE | [address] | [address] | | | TESTS | | | [...] MARQUAM | [address] | [place], [place] | | | LÓPEZ POINT OF CARE | [facility] | [address] | | | TESTS | | | [...] MARQUAM | [address] | [place], [place] | | | JUSTINE DAWN OF CARE | [address] | [address] | | | TESTS | | | [...] AMES | [address] | [place], [place] | | | JUSTINE DAWN OF JAKY | [facility] | [address] | | | TESTS | | | [...] | [facility] | [address] | [place] [address] | | | SERVICES, | [address] | | | | TRANSFUSION MEDICINE [...] (H) | 60 - 99 mg/dL | [facility] - | | | GLUCOSE, | | [...] AMES | [address] | [place], [place] | | | L[place]PEZ POINT OF CARE | [address] | [address] | | | TESTS | | | [...] [facility] | [address] | [place] [address] | | | SERVICES, | [address] [...] [facility] | [address] | [place] [address] | | | SERVICES, | [address] [...] [facility] | [address] | [place] [address] | | | SERVICES, CORE | CLARENCE [...] [facility] | [address] | [place] [address] | | | SERVICES, CORE | PARK [...] [facility] | [address] | [place] [address] | | | SERVICES, CORE | PARK [...] + | [facility] | [address] | [place] [address] | | | SERVICES, CORE | PARK [...] equation recommended by the | [facility] | | National Kidney Disease Education Program. [...] [facility] | [address] | [place] [address] | | | LYDIA RANGEL | PARK [...] view image for the detailed interpretation from [employer] results. | CARDIOLOGY | + + + + + + + + | Performing | Address | City/State/Zipcode | Phone Number | | Organization | | | | + + + + + | [facility] | [address] | [place], [place] | | | CARDIOLOGY | [address] | [address] | | + + + + + [...] LABORATORY | [address] | [place] [address] | | | SERVICES, CORE | CLARENCE [...] + + + + + | [facility] | [address] | [place] [address] | | | SERVICES, CORE | CLARENCE [...] | 1 tablet | | | | onlpbvllre-hdroywgrnupvf-ggswydge | | 13 8:02 | | | [...] 13 7:36 | | | | | FERTILIZER MIXER infusion intravenous, | | PM PDT | [...] PDT | | | | | Until [facility] 11/11/12 at 0702 | | [...]
--- OUTSIDE RECORDS SUMMARY | ~2019-05-20 | XMS | Encounter Summary ---
Demographics + + + | Address | [address] | | | [place] [address] | + + + | Home Phone [...] [place], [place] | | | | | [address] | | + + + + + | Ellie Vang | ECON | Unknown | | + + + + + Care Team Providers + +------+ + | Care Tree Scout Name | Role | Phone | [...] | | | | | | [facility] [address] | | | | | | [address] | | | | | | Physician's | | | | | | Pavilion | | | | | | [facility] | | | | | | [place], [place] | | | | | | [address] | | | | | | [phone] | | | +--------+ + + + [...] | | 2018 | Visit | | [address] | | | | | | [place], [place] | | | | | | [address] | | | | | | [phone] | | | | | | | | +--------+ + + + + | 07/08/ | Procedure | Surgery | | | | 2018 | Pass | | | | +--------+ + + + + documented as of this encounter Visit Diagnoses Not on filedocumented in this encounter"
--- OUTSIDE RECORDS SUMMARY | ~2019-05-20 | XMS | Encounter Summary ---
Demographics + + + | Address | [address] | | | [place] [address] | + + + | Home Phone [...] [place], [place] | | | | | [address] | | + + + + + | Ellie Vang | ECON | Unknown | | + + + + + Care Team Providers + +------+ + | Care Certified Pest Control Technician Name | Role | Phone [...] [facility] | ACNP [address] | | | | | [address] | [place], [place] | | | | | Mailcode: [place] | [address] | | | | | for Health and | | | | | | [facility] | | | | | | [facility] [place] | | | | | | [address] | | | | | | | [...] | | 2018 | Visit | | [address] | | | | | | [place], [place] | | | | | | [address] | | | | | | [phone] | | | | | | | | +--------+ + + + + | 07/08/ | Procedure | Surgery | | | | 2019 | Pass | | | | +--------+ + + + + documented as of this encounter Visit Diagnoses Not on filedocumented in this encounter"
--- OUTSIDE RECORDS SUMMARY | ~2019-05-20 | XMS | Encounter Summary ---
Demographics + + + | Address | [address] | | | [place] [address] | + + + | Home Phone [...] [place], [place] | | | | | [address] | | + + + + + | Ellie Vang | ECON | Unknown | | + + + + + Care Team Providers + +------+ + | Care Dye Expert Name | Role | Phone | + +------+ + | Fadi Goodrich DO | PCP | | + +------+ + Encounter Details +--------+ + + + + | Date | Type | Department | Care Team | Description | +--------+ + + + + | 02/13/ | Abstract | Cardiology | Randell rFanks, | | | 2015 | | Preventive at [facility] | MD [address] | | | | | [address] | [address] [place], [place] | | | | | Mailcode: CH9A | [address] | | | | | [facility] | [phone] | | | | | and Healing, | | | | | | [address] | | | | | | [place], [place] | | | | | | [address] | | | | | | [phone] | | | +--------+ + + + [...] | | | | | [place], [place] | | | | | | [address] | | | | | | [phone] | | | | | | | | +--------+ + + + + | 07/08/ | Procedure | Surgery | | | | 2019 | Pass | | | | +--------+ + + + + documented as of this encounter Visit Diagnoses Not on filedocumented in this encounter"
--- OUTSIDE RECORDS SUMMARY | ~2019-05-20 | XMS | Encounter Summary ---
Demographics + + + | Address | [address] | | | [place] [address] | + + + | Home Phone [...] + | Katalina Padilla | ECON | [address] | | | | | [place], [place] | | | | | [address] | | + + + + + [...] 2018 | Visit | Center at [facility] [address] | | (Primary Dx) | | | | [address] | | | | | | Mailcode: [place] | | | | | | [facility] and | | | | | | [facility] | | | | | | [place], [place] | | | | | | [address] | | | | | | [phone] | | | +--------+---------+ + + + [...] of Class: 1055 until 1155 (60 minutes oaqk-rt-jckw with patient) Teaching Methods: PowerPoint and verbal [...] a journal with fluid/protein d. Transportation 7. [facility] 8. Surgical [...] [place] | | | | | | [address] | | | | | | [phone] | | | | | | | [...]
--- OUTSIDE RECORDS SUMMARY | ~2019-05-20 | XMS | Encounter Summary ---
Demographics + + + | Address | [address] | | | [place] [address] | + + + | Home Phone [...] [place], [place] | | | | | [address] | | + + + + + | Ellie Vang | ECON | Unknown | | + + + + + Care Team Providers + +------+ + | Care Associate Professor Of Pathology Name | Role | Phone | + [...] Visit | [facility] at | J, DIRECTOR BIOINFORMATICS | (Primary Dx); | | | | [facility] | | Dysphagia, | | | | [address] | | unspecified type; | | | | Mail Code: OC8PM | | Hypertension, | | | | Center for [facility] | | unspecified type; | | | | and Healing, | | Hyperlipidemia, | | | | [address] | | unspecified | | | | [place], [place] | | hyperlipidemia type; | | | | [address] | | Diastolic | | | | [phone] | | congestive heart | | | [...] | | Endotracheal Tube; 7; Oral; | ELECTRICAL DESIGNER DRAFTER | ELECTRICAL DESIGNER DRAFTER | | | Cuffed; 06/23/18; 1542 | [...] encounter Patient Instructions Patient Instructions Tiara Mckeon, DIRECTOR BIOINFORMATICS - 06/16/2018 3:15 PM [facility] PREOPERATIVE INSTRUCTIONS Please consider having an [...] Admitting - [facility], ninth floor [facility] Surgery Check in Time: The [...] it is after office hours, call the [facility] buffing machine operator at [phone] and ask them to page him or [...] weight loss and diuretic tx, follows with signing teacher Hypothyroidism stabilized on hormone replacement Type 2 [...] renal failure no electrolyte abnormalities no dialysis Urology/Service Architect: Urologic Conditions: nephrolithiasis Endo: Diabetes: type 2 [...] sublingual Place under tongue once daily. CALCIUM [id number]-[id number]-GENIS ORAL Take 2 tablets by mouth two [...] less 8 [facility] reviewed / updated [...] weight loss and diuretic tx, follows with signing teacher. Appears comp ensated today. Hypothyroidism stabilized on hormone replacement. Take on DOS as usual Type 2 diabetes, well controlled with A1c 6.1 Thank you for the opportunity to contribute to this patient's care. HILDA Lagos [facility] [address]TH FLOOR [address] [facility] [id number] I advised the patient regarding [...] | | | | | [place], [place] | | | | | | [address] | | | | | | [phone] | | | | | | | [...]
--- OUTSIDE RECORDS SUMMARY | ~2019-05-20 | XMS | Encounter Summary ---
Demographics + + + | Address | [address] | | | [place] [address] | + + + | Home Phone [...] [place], [place] | | | | | [address] | | + + + + + | Ellie Vang | ECON | Unknown | | + + + + + Care Team Providers + +------+ + | Care Bioinformatics Developer Name | Role | Phone | [...] | | 2018 | Visit | | [id number] | | | | | | [place], [place] | | | | | | [address] | | | | | | [phone] | | | | | | | | +--------+ + + + + | 07/08/ | Procedure | Surgery | | | | 2018 | Pass | | | | +--------+ + + + + documented as of this encounter Visit Diagnoses Not on filedocumented in this encounter"
--- OUTSIDE RECORDS SUMMARY | ~2019-05-20 | XMS | Encounter Summary ---
Demographics + + + | Address | [address] | | | [place] [address] | + + + | Home Phone [...] [place], [place] | | | | | [address] | | + + + + + | Ellie Vang | ECON | Unknown | | + + + + + Care Team Providers + +------+ + | Care Docket Clerk Name | Role | Phone | [...] from | | 2016 | | at [facility] [address] | NEWSPAPER MANAGING EDITOR [address] [facility] | | | | [place] Mailcode: | Ave [place], [place] | | | | | [address] | [address] | | | | | Health and Healing, | [phone] | | | | | | | | | | | [place], [place] | | | | | | [address] | | | | | | [phone] | | | +--------+ + + + [...] | | | | | [place], [place] | | | | | | [address] | | | | | | [phone] | | | | | | | | +--------+ + + + + | 07/08/ | Procedure | Surgery | | | | 2018 | Pass | | | | +--------+ + + + + documented as of this encounter Visit Diagnoses Not on filedocumented in this encounter"
--- OUTSIDE RECORDS SUMMARY | ~2019-05-20 | XMS | Encounter Summary ---
Demographics + + + | Address | [address] | | | [place] [address] | + + + | Home Phone [...] [place], [place] | | | | | [address] | | + + + + + | Ellie Vang | ECON | Unknown | | + + + + + Care Team Providers + +------+ + | Care Clinical Staff Rn Name | Role | Phone | [...] | | 2018 | Visit | | [address] | | | | | | [place], [place] | | | | | | [address] | | | | | | [phone] | | | | | | | | +--------+ + + + + | 07/08/ | Procedure | Surgery | | | | 2018 | Pass | | | | +--------+ + + + + documented as of this encounter Visit Diagnoses Not on filedocumented in this encounter"
--- OUTSIDE RECORDS SUMMARY | ~2019-05-20 | XMS | Encounter Summary ---
Demographics + + + | Address | [address] | | | [place] [address] | + + + | Home Phone [...] [place], [place] | | | | | [address] | | + + + + + | Ellie Vang | ECON | Unknown | | + + + + + Care Team Providers + +------+ + | Care Instructional Technology Coach Name | Role | Phone | [...] | | | [address] | [facility] | | | | | Mailcode: Center | [place], [place] | | | | | [facility] Health and | [address] | | | | | [facility] 2 | [phone] | | | | | [place], [place] | | | | | | [address] | | | | | | [phone] | | | +--------+ + + + [...] | | | | | [place], [place] | | | | | | [address] | | | | | | [phone] | | | | | | | | +--------+ + + + + | 07/08/ | Procedure | Surgery | | | | 2019 | Pass | | | | +--------+ + + + + documented as of this encounter Visit Diagnoses Not on filedocumented in this encounter"
--- OUTSIDE RECORDS SUMMARY | ~2019-05-20 | XMS | Encounter Summary ---
Demographics + + + | Address | [address] | | | [place] [address] | + + + | Home Phone [...] [place], [place] | | | | | [address] | | + + + + + | Ellie Vang | ECON | Unknown | | + + + + + Care Team Providers + +------+ + | Care Car Painter Name | Role | Phone | [...] + + | 02/07/ | Hospital | [address] | [place], | | | 2014 - | Encounter | [address] | [address] | | | | | [place], [place] | [address] | | | 02/08/ | | [address] | [place], [place] | | | 2013 | | [phone] | [address] | | | | | | [phone] | | | | | | | [...] the resident s note. PRADIP STARR MD [facility] [address] [facility] [address] [place] [address] orrMaryam hill MD - 1:05 PM PDT [facility] DEPARTMENT OF SURGERY EMERGENCY GENERAL [...] Type 2 DM who presented to the [facility] ED ([place], [place]) on 02/06/14, with a week hi story of RUQ abdominal pain that radiates to her back. There, she was found to have leukocyt osis and multiple tiny, mobile stones, + sonographic Peterson's sign on abdominal ultrasound, concerning for acute cholecystitis. She was givenIV antibiotics (cipro, flagyl) and pain med s, then transferred to [facility] by [facility] for further care. Ms. Romero endorsed [...] up in 2-4 weeks ) Contact information [address] [facility] Mailcode: L223a Lionelyiarmen [address] [place] [address] Thank you for the [...] the resident s note. PRADIP STARR MD [facility] [address] [facility] [address] [place] [address] orrMaryam hill MD - 5:17 AM PDT [facility] DEPARTMENT OF SURGERY EMERGENCY GENERAL SURGERY Division [...] tolerated MARYAM RHODES MD PGY-1, General Surgery [address]35 pager number [facility] [place] [address] [facility] [address] documented in this encoun ter Plan of [...] | | | | | [place], [place] | | | | | | [address] | | | | | | [phone] | | | | | | | [...] MARQUAM | [address] | [place], [place] | | | JUSTINE DAWN OF CARE | [address] | [address] | | | TESTS | | | [...] [facility]QU[facility] | [address] | [place], [place] | | | [place] POINT OF CARE | [address] | [address] | | | TESTS | | | [...] AMES | [address] | [place], [place] | | | [facility] OF [facility] | [address] | [address] | | | TESTS | | | [...] MARQUAM | [address] | [place], [place] | | | JUSTINE DAWN OF CARE | [address] | [address] | | | TESTS | | | [...] [facility] | [address] | [place] [address] | | | SERVICES, | [address] [...] + | [facility] | [address] | [place] [address] | | | SERVICES, | [address] [...] MARQUAM | [address] | [place], [place] | | | [place] POINT OF CARE | [address] | [address] | | | TESTS | | | [...] HOSPITAL LABORATORY | [address] | [place] [address] | | | SERVICES, CORE | [address] | | | + + + + + LIPASE, PLASMA (02/07/2014 6:32 AM PDT) + +--------+ + + + | Component | Value | Ref Range | Performed | Pathologist | | | | | At | Signature | + +--------+ + + + | LIPASE | 80 (L) | 152 - 353 U/L | [facility] | | | (LAB) | | | [...] [facility] | [address] | [place] [address] | | | SERVICES, CORE | [address] [...] [facility] | [address] | [place] [address] | | | CLAIRE, LYDIA | [address] [...] + + | [facility] | [address] | [place] [address] | | | SERVICES, CORE | [address]ENCE [...] [facility] | [address] | [place] [address] | | | SERVICES, CORE | [address] [...] MARQUAM | [address] | [place], [place] | | | JUSTINE DAWN OF CARE | [address] | [address] | | | TESTS | | | [...] pattern. | | | | | | Shape Brick Molder | | | | | | sections [...] + + + | [facility] | [address] | [place] [address] | | | PATHOLOGY | [address] [...]
--- OUTSIDE RECORDS SUMMARY | ~2019-05-20 | XMS | Encounter Summary ---
Demographics + + + | Address | [address] | | | [place] [address] | + + + | Home Phone [...] [place], [place] | | | | | [address] | | + + + + + | Ellie Vang | ECON | Unknown | | + + + + + Care Team Providers + +------+ + | Care Hand Blocker Name | Role | Phone | [...] Medical Records | | 2013 | | [place] [facility] [address] | [address] | Review ([facility] - | | | | [address] | [address] | OUTSIDE RECORDS) | | | | Mailcode: [place] | [place], [place] | | | | | and | [address] | | | | | [place] [address] | [phone] | | | | | [place], [place] | | | | | | [address] | | | | | | [phone] | | | +--------+ + + + [...] [place] | | | | | | [address] | | | | | | [phone] | | | | | | | | +--------+ + + + + | 07/08/ | Procedure | Surgery | | | | 2019 | Pass | | | | +--------+ + + + + documented as of this encounter Visit Diagnoses Not on filedocumented in this encounter"
--- OUTSIDE RECORDS SUMMARY | ~2019-05-20 | XMS | Encounter Summary ---
Demographics + + + | Address | [address] | | | [place] [address] | + + + | Home Phone [...] [place], [place] | | | | | [address] | | + + + + + | Ellie Vang | ECON | Unknown | | + + + + + Care Team Providers + +------+ + | Care Substance Addiction Coordinator Name | Role | Phone | [...] 70 and over, | | | | [place], [place] | | adult ([facility]); | | | | [address] | | 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[phone] | | 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 ([facility]); | | | | | | Type 2 diabetes | | | | | | mellitus without | | | | | | complication, with | | | | | | long-term current | | | | | | use of insulin ([facility]) | +--------+------+ + + + Social History [...] | | 2018 | Visit | | [address] | | | | | | [place] [facility] [place] | | | | | | [address] | | | | | | [phone] | | | | | | | [...] | PDT | over, adult ([facility]) | results section. | | | | | 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| | 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 ([facility]) | | + +--------+ + + + | VITAMIN B1, WHOLE | Routin | 11/20/2017 | Morbid obesity | Results for this | | BLOOD | e | 10:01 AM | with BMI of 70 and | procedure are in the | | | | PDT | over, adult ([facility]) | results section. | | | | | 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| | 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 ([facility]) | | + +--------+ + + + | VITAMIN D, | Routin | 11/20/2017 | Morbid obesity | Results for this | | 25-HYDROXY, SERUM | e | 10:01 AM | with BMI of 70 and | procedure are in the | | | | PDT | over, adult ([facility]) | results section. | | | | | 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| | 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 ([facility]) | | + +--------+ + + + | COMPLETE METABOLIC | Routin | 11/20/2017 | Morbid obesity | Results for this | | SET | e | 10:01 AM | with BMI of 70 and | procedure are in the | | (NA,K,CL,CO2,BUN,CRE | | PDT | over, adult ([facility]) | results section. | | AT,GLUC,CA,AST,ALT,B | | | Diabetes mellitus | | | MARGIE TOTAL,ALK | | | type 2 without | | | PHOS,ALB,PROT TOTAL) |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 ([facility]) | | + +--------+ + + + | CBC ONLY | Routin | 11/20/2017 | Morbid obesity | Results for this | | | e | 10:01 AM | with BMI of 70 and | procedure are in the | | | | PDT | over, adult ([facility]) | results section. | | | | | 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| | 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 ([facility]) | | + +--------+ + + + | FERRITIN | Routin | 11/20/2017 | Morbid obesity | Results for this | | | e | 10:01 AM | with BMI of 70 and | procedure are in the | | | | PDT | over, adult ([facility]) | [...] | PDT | over, adult ([facility]) | [...] | PDT | over, adult ([facility]) | [...] LABORATORY | [address] | [place] [address] | | | [facility] | | | | | HEALTH [...] | + + + + + | [facility] | [address] | [place], [place] | | | SERVICES, LIPID | [address] | [address] | | + + + + + [...] | [facility] | | considered for monitoring fruit and vegetable factory worker glycemic control in patients with: | LABORATORY [...] | [facility] | [address] [facility] | [place] [address] | | | SERVICES, SPECIAL | [address] [...] B: | | | | | | aruplab.[employer]/CSPerformed | | | | | | by [employer],[address] | | | | | | Natalia Martinez, [facility] [place] | | | | | | [address] | | | | | | [phone].[employer]. | | | | | | university [...] [facility] | [address] | [place], [place] | | | [facility] | | [address] | | + + + + + [...] | | | LABORATORY | | | NEPALESE | | | SERVICES, | | | [...] MDRD equation recommended by the | [facility] | | National Kidney Disease Education [...] + | [facility] | [address] | [place] [address] | | | SERVICES, CORE | [address] [...] [facility] | [address] | [place] [address] | | | SERVICES, CORE | PARK [...] [facility] | [address] | [place] [address] | | | SERVICES, CORE | PARK [...] | + + + + + | [facility] | [address] | [place] [address] | | | SERVICES, CORE | CLARENCE [...] [facility] | [address] | [place] [address] | | | SERVICES, CORE | PARK [...] | + + + + + | [facility] [employer] | [address] | [place] [address] | | | SERVICES, CORE | [address] [...]
--- OUTSIDE RECORDS SUMMARY | ~2019-05-20 | XMS | Encounter Summary ---
Demographics + + + | Address | [address] | | | [place] [address] | + + + | Home Phone [...] [place], [place] | | | | | [address] | | + + + + + | Ellie Vang | ECON | Unknown | | + + + + + Care Team Providers + +------+ + | Care Refrigeration Repair Supervisor Name | Role | Phone | [...] | | | [address] | [place], [place] | Dx); History of | | | | Mailcode: Center | [address] | Frandy-en-Y gastric | | | | for Health and | | bypass | | | | [facility] 2 | | | | | | [place], [place] | | | | | | [address] | | | | | | [phone] | | | +--------+---------+ + + + [...] the healing stomach. There are also supervisor intermediates complications of poor wound healing and gastric u lcers. These ulcers are started by smoking or using other nicotine products (vapor cigarett es etc). Gastric bypass patients should also avoid NSAIDS(ibuprofen, advil, motrin, naprosyn/naproxe n/aleve) to prevent gastric/marginal ulcers. Please visit with our Channel Lip Wetter (RD) for instructions about your Bariatric diet, assistance with calorie counts, tips and tricks for working with your diet restrictions, an d recipes after bariatric surgery. Daily yogurt; even just 1 tablespoon twice a day will provide enough probiotics to optimize digestion. Try to use a high-quality, probiotic-dense yogurt (eg Zaria's, [place], Lif eway Kefir, Gear Lapper Duke's Icelandic Yogurt). Remember to chew your food well, [...] protein daily, and 64 oz water daily. Adjunct Faculty Instructor just changed diet to he lp her [...] by communicating with her mother - Follow Adjunct Faculty Instructor recommendations to help with nausea (decrease volume, [...] Anisa Dillon MD PGY-1, Red Surgery Pager: [phone] documented in this encounter Plan of Treatment [...] | | 2018 | Visit | | [address] | | | | | | [place], [place] | | | | | | [address] | | | | | | [phone] | | | | | | | [...]
--- OUTSIDE RECORDS SUMMARY | ~2019-05-20 | XMS | Encounter Summary ---
Demographics + + + | Address | [address] | | | [place] [address] | + + + | Home Phone [...] [place], [place] | | | | | [address] | | + + + + + | Ellie Vang | ECON | Unknown | | + + + + + Care Team Providers + +------+ + | Care Vice President Supply Chain Name | Role | Phone | + [...] | | | Procedures | | Rd [place], | | | | | [place] MNT | | [place] | | | | | INITIAL | | [address] | | | | | ASSESSMNT | [...] | 2012 | Visit | Center at [facility] [address] | [address] | mellitus (HCC) | | | | [address] | [address] | (Primary Dx); Morbid | | | | Mailcode: Center | [place], [place] | obesity (HCC) | | | | for Health and | [address] | | | | | Healing, [place] [address] | | | | | | [place], [place] | | | | | | [address] | | | | | | [phone] | | | +--------+---------+ + + + [...] PDTNutrition appointment, -try keeping food logs online: -www.BillGuard -[employer] -[place] -Aim for 6411-0260 calories a day -Increase physical activity -try [...] appropriate portions. Denies any binge eating. Weight post exchange manager the past year: > 100 lb [...] see an RD for 2 years in [place] but insurance quit paying for it. Up [...] 1000/d--a more appropriate long-term range would be 5007-9193/day. Inadequat e calcium intake; did not address [...] w/ meals & snacks 2. Aim for 8888-1884 kcal/d 3. Keep food logs (at least [...] needed. Olga [address] RD, LD Pager [phone] documented in this en counter Plan of [...] | | | | | [place], [place] | | | | | | [address] | | | | | | [phone] | | | | | | | [...]
--- OUTSIDE RECORDS SUMMARY | ~2019-05-20 | XMS | Encounter Summary ---
Demographics + + + | Address | [address] | | | [place] [address] | + + + | Home Phone [...] [place], [place] | | | | | [address] | | + + + + + | Ellie Vang | ECON | Unknown | | + + + + + Care Team Providers + +------+ + | Care Car Wash Supervisor Name | Role | Phone | [...] | | 2018 | Visit | | [address] | | | | | | [place], [place] | | | | | | [address] | | | | | | [phone] | | | | | | | | +--------+ + + + + | 07/08/ | Procedure | Surgery | | | | 2018 | Pass | | | | +--------+ + + + + documented as of this encounter Visit Diagnoses Not on filedocumented in this encounter"
--- OUTSIDE RECORDS SUMMARY | ~2019-05-20 | XMS | Encounter Summary ---
Demographics + + + | Address | [address] | | | [place] [address] | + + + | Home Phone [...] + | Katalina Padilla | ECON | [address] | | | | | [place], [place] | | | | | [address] | | + + + + + | Ellie Vang | ECON | Unknown | | + + + + + Care Team Providers + +------+ + | Care Ballast Regulator Operator Name | Role | Phone | [...] [place] | | | | | | [place], [place] | | | | | | [address] | | | | | | [phone] | | | +--------+ + + + [...] [place] | | | | | | [address] | | | | | | [phone] | | | | | | | [...] in | | | | | | [place]. | | | | | | | | | | | | Julia Blackman at [facility]. | | | | | | [...] | | | | artery. A 4.1 Estonian | | | | | | catheter was navigated | | | | | | over0.035" Donal coated | | | | | | The [employer] guide wire into | | | | [...] | | + +---------+ + + | [facility] DEPARTMENT OF | | | | | RADIOLOGY | | | | + +---------+ + + documented in this encounter Visit Diagnoses Not on filedocumented in this encounter
--- OUTSIDE RECORDS SUMMARY | ~2019-05-20 | XMS | Encounter Summary ---
Demographics + + + | Address | [address] | | | [place] [address] | + + + | Home Phone [...] [place], [place] | | | | | [address] | | + + + + + | Ellie Vang | ECON | Unknown | | + + + + + Care Team Providers + +------+ + | Care Gear Lapper Name | Role | Phone | + [...] Dx) | | | | Surgery at [facility] [address] | [place], [place] | | | | | [address] | [address] | | | | | Mailcode: [facility] | [phone] | | | | | [facility] | | | | | | and Healing, | | | | | | Building [address], 5th | | | | | | Floor [place], [place] | | | | | | [address] | | | | | | [phone] | | | +--------+---------+ + + + [...] [facility], Dr Pandey Cholecystectomy, laparoscopic Allergies Allergen [...] 50 mg by mouth once daily. CALCIUM CRB&CME-X1-WDY68-GENIS ORAL Take 2 tablets by mouth two [...] | | | | | [place], [place] | | | | | | [address] | | | | | | [phone] | | | | | | | [...]
--- OUTSIDE RECORDS SUMMARY | ~2019-05-20 | XMS | Encounter Summary ---
Demographics + + + | Address | [address] | | | [place] [address] | + + + | Home Phone [...] [place], [place] | | | | | [address] | | + + + + + [...] | | | | | bypass | [place], | Mailcode: | | | | | Nausea and | [place] | [address] [facility] | | | | | vomiting, | [address] | Hospital | | | | | intractabili | Phone: | [place], [place] | | | | | ty of | | [address] | | | | | vomiting not | Fax: | Phone: | | | | | specified, | [phone] | [phone] | | | | | unspecified | | Fax: | | | | | vomiting | | [phone] | | | | | type | [...] | | | | | bypass | [place], | Mailcode: | | | | | Nausea and | [place] | [address] [facility] | | | | | vomiting, | [address] | Hospital | | | | | intractabili | Phone: | [place], [place] | | | | | ty of | | [address] | | | | | vomiting not | Fax: | Phone: | | | | | specified, | [phone] | [phone] | | | | | unspecified | | Fax: | | | | | vomiting | | [phone] | | | | | type | [...] | 2019 | Encounter | Services at [facility] | [address] | | | | | [address] | [place], [place] | | | | | [address] Mailcode: | [address] | | | | | [address] [facility] | [phone] | | | | | [place], [place] | | | | | | [address] | | | | | | [phone] | | | +--------+ + + + [...] | | 0 | | | | CRB&DFZ-T9-JYT98-GEN | mouth two times | | | [...] | | | | [place], [place] | | | | | | [address] | | | | | | [phone] | | | | | | | [...]
--- OUTSIDE RECORDS SUMMARY | ~2019-05-20 | XMS | Encounter Summary ---
[...] [place], [place] | | | | | [address] | | + + + + + | Ellie Vang | ECON | Unknown | | + + + + + Care Team Providers + +------+ + | Care Baseball Winder Name | Role | Phone | [...] Order | [address] | [place], [place] | | | | | [address] | [address] | | | | | Rd Mailcode: U[facility] | [phone] | | | | | Francesco Peres | | | | | | [address] [place], [place] | | | | | | [address] | | | | | | [phone] | | | +--------+ + + + [...] | | | | | [place], [place] | | | | | | [address] | | | | | | [phone] | | | | | | | [...] -----+ | MRN: | [facility] | | [id number] Date: 06/23/2018Patient Name: Elzbieta Curtis #: | ENDOSCOP Y | | [id number] of : 1975CSN: [id number] Type: | | | AmbulatoryRoom: SORProcedure: Upper GI | | | endoscopyIndications: Nausea with vomiting, Status post | | | Fuaf-wf-AGlahhuhxu: KALEB MILES MD (Doctor), JOSE | | | NASIMA, Bench Assembler Battery | | | (Bench Assembler Battery)Referring MD: DANIELLE GARCÍAPRequestdonya | | | Provider: [...] | | | The Olympus [id number] Gastroscope #[id number] was | | | introduced through the [...] endoscope without resistance. The | | | ilojh-sj-ruoahhp limb was characterized by healthy appearing | [...] Initiated On: | | | 06/23/2018 3:58 [facility] Letter to: RADHA MICHAEL DO | [...]
--- OUTSIDE RECORDS SUMMARY | ~2019-05-20 | XMS | Encounter Summary ---
Demographics + + + | Address | [address] | | | [place] [address] | + + + | Home Phone [...] [place], [place] | | | | | [address] | | + + + + + | Ellie Vang | ECON | Unknown | | + + + + + Care Team Providers + +------+ + | Care Wine Maker Name | Role | Phone | + +------+ + | Fadi Goodrich DO | PCP | | + +------+ + Encounter Details +--------+ + + + + | Date | Type | Department | Care Team | Description | +--------+ + + + + | 11/04/ | Telephone | Pain Center at [facility] | Leslie Mistry, | | | 2017 | | Floor [address] | PhD [address] [facility] | | | | | [address] Mailcode: | [address] | | | | | [address] [place], [place] | | | | | Health and Healing, | [address] | | | | | [facility] | [phone] | | | | | Floor [place], [place] | | | | | | [address] | | | | | | [phone] | | | +--------+ + + + [...] | | 2019 | Visit | | [address] | | | | | | [place] [facility] [place] | | | | | | [address] | | | | | | [phone] | | | | | | | | +--------+ + + + + | 07/08/ | Procedure | Surgery | | | | 2019 | Pass | | | | +--------+ + + + + documented as of this encounter Visit Diagnoses Not on filedocumented in this encounter"
--- OUTSIDE RECORDS SUMMARY | ~2019-05-20 | XMS | Encounter Summary ---
Demographics + + + | Address | [address] | | | [place] [address] | + + + | Home Phone [...] [place], [place] | | | | | [address] | | + + + + + | Ellie Vang | ECON | Unknown | | + + + + + Care Team Providers + +------+ + | Care Fitness Sales Consultant Name | Role | Phone | + +------+ + | Fadi Goodrich DO | PCP | | + +------+ + Encounter Details +--------+ + + + + | Date | Type | Department | Care Team | Description | +--------+ + + + + | 02/24/ | Abstract | Cardiology | Randell Franks, | | | 2015 | | Preventive at [facility] | MD [address] | | | | | [address] | Ave [place], [place] | | | | | Mailcode: CH9A | [address] | | | | | [facility] | [phone] | | | | | and Healing, | | | | | | [address] | | | | | | [place], [place] | | | | | | [address] | | | | | | [phone] | | | +--------+ + + + [...] | | | | | [place], [place] | | | | | | [address] | | | | | | [phone] | | | | | | | | +--------+ + + + + | 07/08/ | Procedure | Surgery | | | | 2019 | Pass | | | | +--------+ + + + + documented as of this encounter Visit Diagnoses Not on filedocumented in this encounter"
--- OUTSIDE RECORDS SUMMARY | ~2019-05-20 | XMS | Encounter Summary ---
Demographics + + + | Address | [address] | | | [place] [address] | + + + | Home Phone [...] [place], [place] | | | | | [address] | | + + + + + | Ellie Vang | ECON | Unknown | | + + + + + Care Team Providers + +------+ + | Care Fiberglass Roller Name | Role | Phone | [...] [facility] [address] | MD [address] | | | | | [address] | [facility] | | | | | Mailcode: Center | [place], [place] | | | | | [facility] and | [address] | | | | | [facility] | [phone] | | | | | [place], [place] | | | | | | [address] | | | | | | [phone] | | | +--------+ + + + [...] | | 2018 | Visit | | [address] | | | | | | [place], [place] | | | | | | [address] | | | | | | [phone] | | | | | | | | +--------+ + + + + | 07/08/ | Procedure | Surgery | | | | 2018 | Pass | | | | +--------+ + + + + documented as of this encounter Visit Diagnoses Not on filedocumented in this encounter"
--- OUTSIDE RECORDS SUMMARY | ~2019-05-20 | XMS | Encounter Summary ---
Demographics + + + | Address | [address] | | | [place] [address] | + + + | Home Phone [...] [place], [place] | | | | | [address] | | + + + + + | Ellie Vang | ECON | Unknown | | + + + + + Care Team Providers + +------+ + | Care Rrts Name | Role | Phone | + [...] | 2015 | Review | Center at [facility] [address] | MD | Decision | | | | [address] | | | | | | Mailcode: [place] | | | | | | [facility] and | | | | | | [facility] 2 | | | | | | | | | | | | [address] | | | | | | [phone] | | | +--------+ + + + [...] | | 2018 | Visit | | [address] | | | | | | [place] | | | | | | [address] | | | | | | [phone] | | | | | | | | +--------+ + + + + | 07/08/ | Procedure | Surgery | | | | 2018 | Pass | | | | +--------+ + + + + documented as of this encounter Visit Diagnoses Not on filedocumented in this encounter"
--- OUTSIDE RECORDS SUMMARY | ~2019-05-20 | XMS | Encounter Summary ---
Demographics + + + | Address | [address] | | | [place] [address] | + + + | Home Phone [...] [place], [place] | | | | | [address] | | + + + + + | Ellie Vang | ECON | Unknown | | + + + + + Care Team Providers + +------+ + | Care Coating Machine Operator Name | Role | Phone [...] Medical Records | | 2018 | | [place] [address] | [address] | Review | | | | Ave Mailcode: CH4S | [place], [place] | | | | | [facility] | [address] | | | | | and [place], | [phone] | | | | | [place] [address] | | | | | | Floor [place], [place] | | | | | | [address] | | | | | | [phone] | | | +--------+ + + + [...] | | | | | [place], [place] | | | | | | [address] | | | | | | [phone] | | | | | | | | +--------+ + + + + | 07/08/ | Procedure | Surgery | | | | 2018 | Pass | | | | +--------+ + + + + documented as of this encounter Visit Diagnoses Not on filedocumented in this encounter"
--- OUTSIDE RECORDS SUMMARY | ~2019-05-20 | XMS | Encounter Summary ---
Demographics + + + | Address | [address] | | | [place] [address] | + + + | Home Phone [...] [place], [place] | | | | | [address] | | + + + + + | Ellie Vang | ECON | Unknown | | + + + + + Care Team Providers + +------+ + | Care Office Machine Mechanic Name | Role | Phone [...] [place] | | | | | Mailcode: [facility] | [address] | | | | | [facility] | [phone] | | | | | and [address] | | | | | | [address] | | | | | | [facility] [place] | | | | | | [address] | | | | | | [phone] | | | +--------+ + + + [...] | | | | | [place], [place] | | | | | | [address] | | | | | | [phone] | | | | | | | | +--------+ + + + + | 07/08/ | Procedure | Surgery | | | | 2018 | Pass | | | | +--------+ + + + + documented as of this encounter Visit Diagnoses Not on filedocumented in this encounter"
[~2019-05-20 10:18] MED LIST changes: +ALPRAZOLAM1 MG PO; +DOXYCYCLINE HY100 M3 PO; +PROMETHAZINE12.5 M1 PO
--- OUTSIDE RECORDS SUMMARY | 2019-05-20 10:22 | XMS ---
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 ROMERO [employer] Grip Events No recent Security Events currently on file CRITERIA MET - Group Notification - [facility] - Has Care Guidelines - PDMP - [facility] - 2 Visits in 30 Days CARE PROVIDERS Rob Tilley Lance Crewmember/Single Wire Saw Operator 03/27/2018-Current PHONE: [phone] Bernard Cardenas Internal Medicine: Pulmonary Disease 08/23/2018-Current PHONE: Unknown LOUIE CARDENAS Primary [facility] Current PHONE: Unknown Rob Tilley Primary Care 03/27/2018-Current PHONE: [phone] Guidelines Source: [facility] [place] Guidelines Date: 12/06/2018 Care Coordination: Receiving mental health services with [facility].\T\nbsp; Please contact [facility] for mental health concerns.\T\nbsp; Sarah/Toni Jacobo: [phone]\T\ nbsp; Kishan: [phone].\T\nbsp; Care History Medical/Surgical 05/11/2019 [facility] - Patient is currently established with [facility]. If patient is seen in the ED during business hours. Please contact [facility] at [facility]. Care Recommendation: This patient has had 5 or more Emergency Department visits in the last 12 months.\T\nbsp; Patient requires education on the scope and purpose of the ED as an acute care provider not a Primary Care Provider and should not be utilized for chronic conditions.\T\nbsp; These are guidelines and the provider should exercise clinical judgment when providing care. 08/23/2018 [facility] - PATIENT HAS A PCP APT TO ESTABLISH CARE ON 10/04/18 @ 10:00AM WITH DR LIBBY. [place] VISIT COUNT (12 MO.) 1 [facility] 1 [facility] 3 [facility]. TOTAL 5 NOTE: Visits indicate total known visits. ED/UCC VISIT TRACKING (12 MO.) 05/20/2019 10:19 [facility] [place] TYPE: Emergency COMPLAINT: - ABD PAIN, VOMITING 05/13/2019 17:18 [facility] TYPE: Emergency DIAGNOSES: 51768. A303 [id number]. Bariatric surgery status 49354. Ventral hernia without obstruction or gangrene 72134. Nausea with vomiting, unspecified 12719. Unspecified abdominal pain 62260. Nonspecific mesenteric lymphadenitis 05/10/2019 13:06 [facility] [place] TYPE: Emergency COMPLAINT: - ABD PAIN DIAGNOSES: - Nausea with vomiting, unspecified - Allergy status to oth drug/meds/biol subst status - Prsnl hx of TIA (TIA), and cereb infrc w/o resid deficits - Solitary pulmonary nodule - Other fci (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 - Anxiety disorder, unspecified - Allergy status to penicillin - Ventral hernia without obstruction or gangrene - saturation diver (current) use of aspirin - Unspecified abdominal pain - Diarrhea, unspecified 12/03/2018 11:51 [facility] [place] TYPE: Emergency DIAGNOSES: - Strain of unsp musc/tend at lower leg level, right leg, init - RIGHT LEG PAIN DUE TO FALL 08/22/2018 18:05 [facility] [place] TYPE: Emergency COMPLAINT: - ABD PAIN DIAGNOSES: - Other fci (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 - Upper abdominal pain, unspecified - Bariatric surgery status - Allergy status to oth drug/meds/biol subst status - Noninfective gastroenteritis and colitis, unspecified - Obesity, unspecified - Anxiety disorder, unspecified - intermediate (current) use of aspirin - Allergy status to penicillin - Personal history of pulmonary embolism - 1 Type 2 diabetes mellitus without complications - Prsnl hx of TIA (TIA), and cereb infrc w/o resid deficits - saturation diver (current) use of oral hypoglycemic drugs - Personal history of urinary (tract) infections INPATIENT VISIT TRACKING (12 MO.) No inpatient visits to display in this time frame [email or web address]
[2019-05-20] MEDS ORDERED: REGLAN10 MG PO (10:32)
== END 2019-05-20 14:28 | disposition home or self-care (01) ==
LOC: ED 10:18
DX: R10.84 Generalized abdominal pain (principal); G89.29 Other chronic pain; F41.9 Anxiety disorder, unspecified; Z88.0 Allergy status to penicillin; Z88.8 Allergy status to other drugs, medicaments and biological substances; Z79.82 Long term (current) use of aspirin; Z86.73 Personal history of transient ischemic attack (TIA), and cerebral infarction without residual deficits; Z79.899 Other long term (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
CPT/HCPCS: 74176; 80053; 83690; 96374; 96375; 99284-25; J2550; J7030

== ENCOUNTER 2019-05-23 17:07 | Emergency (ER) | payer OTHER ==
[~2019-05-23] VITALS: Ht 147.3 cm; Wt 120.7 kg
--- OUTSIDE RECORDS SUMMARY | ~2019-05-23 | XMS | Encounter Summary ---
Demographics + + + | Address | [address] | | | [place] [address] | + + + | Home Phone | | + + + | Preferred Language | Unknown | + + + | Marital Status | Single | + + + | Spiritism Affiliation | NON | + + + [...] + | Katalina Padilla | ECON | [address] | | | | | [place], [place] | | | | | [address] | | + + + + + | Ellie Vang | ECON | Unknown | | + + + + + Care Team Providers + +------+ + | Care Lead Former Name | Role | Phone | + +------+ + | Fadi Goodrich DO | PCP | | + +------+ + Reason for Visit + + + | Reason | Comments | + + + | Follow-up visit | | + + + Global Period - Transplant (Routine) +--------+--------+ + + + + | Status | Reason | Specialty | Diagnoses / | Referred By | Referred To | | | | | Procedures | Contact | Contact | +--------+--------+ + + + + | Closed | | Trauma Center | Diagnoses | No | S[place]hal, | | | | | Hernia of | Referring | MD Andie | | | | | unspecified | Provider Per | [address] | | | | | site of | Patient NO | Ryan [place] | | | | | abdominal | REFERRING | Brock Molina | | | | | cavity | PROVIDER PER | [place] | | | | | without | [place] | [address] | | | | | mention of | | Phone: | | | | | obstruction | | [phone] | | | | | or gangrene | | Fax: | | | | | | | [phone] | +--------+--------+ + + + + Encounter Details +--------+---------+ + + + | Date | Type | Department | Care Team | Description | +--------+---------+ + + + | 12/03/ | Office | Trauma Emergency | Juventino Dunaway, | Morbid obesity (HCC) | | 2012 | Visit | General Surgery at | MD [address] | (Primary Dx); | | | | PPV [address] | [address] | Hernia | | | | [address] | [place], [place] | | | | | Mailcode: L223A | [address] | | | | | [facility] | [phone] | | | | | [address] [place], [place] | | | | | | [address] | | | | | | [phone] | | | +--------+---------+ + + + Social History + +-------+ +--------+------+ | Tobacco Use | Types | Packs/Day | Years | Date | | | | | Used | | + +-------+ +--------+------+ | Never Smoker | | | | | + +-------+ +--------+------+ + + +---------+ + | Alcohol Use [...] + + + | Blood Pressure | 135/88 | 12/03/2012 1:32 PM | | | | | PDT | | + + + + + | Pulse | 94 | 12/03/2012 1:32 PM | | | | | PDT | | + + + + + | Temperature | 36.8 C (98.2 F) | 12/03/2012 1:32 PM | | | | | PDT | | + + + + + | Respiratory Rate | - | - | | + + + + + | Oxygen Saturation | 94% | 12/03/2012 1:32 PM | | | | | PDT | | + + + + + | Inhaled Oxygen | - | - | | | Concentration | | | | + + + + + | Weight | 174.6 kg (385 lb) | 12/03/2012 1:32 PM | | | | | PDT | | + + + + + | Height | - | - | | + + + + + | Body Mass Index | 72.78 | 11/06/2012 1:35 PM | | | | | PDT | | + + + + + documented in this encounter Progress Notes Juventino Dunaway MD - 12/03/2012 3:29 PM Samm Cristina is a 37 yo morbidly obese female wh o is losing weight (46 lbs.) on diet alone. She is also a diabetic. She is now almost 4 we eks from repair of an incarcerated umbilical hernia without mesh. Also about 9 lbs of rosie s were resected through a long, lower abdominal transverse incision. Minimal pain, but drai nage from the Samson drain is still about 100 ml/24 hours, decreasing somewhat. Taking minim al pain meds. Only complaint is discomfort around the drain site. Eating well, Normal bow el fct. Exam: VS fine, afebrile. Abdominal exam is completely benign. Mg are still in, And wound is healed. [place] removed. Drainage is serous, very slight sanguinous. No eviden ce of deep subcutaneous infection. Abdominal wall currently intact. Drain site OK. Assessment/Plan: Satisfactory course following primary repair of incarcerated umbilical he rnia. Pt. Wants to obtain care, including drain removal and diabetic care in [place], so I have referred her to her PCP. Otherwise, I will see her back in 2 weeks. Drain could be removed when it is down to 30 - 40 ml/day. I refilled her Lidocaine cream. I spent 40 minutes with this pt., 75% in counseling her. documented in this encounter Plan of Treatment +--------+ [...] | | 2018 | Visit | | [address] | | | | | | [place], [place] | | | | | | [address] | | | | | | [phone] | | | | | | | | +--------+ + + + + documented as of this encounter Procedures + +--------+ + + + | Procedure Name | Priori | Date/Time | Associated Diagnosis | Comments | | | ty | | | | + +--------+ + + + | RADIOLOGY | | 02/09/2013 | | Results for this | | | | 12:00 AM | | procedure are in the | | | | PDT | | results section. | + +--------+ + + + | RADIOLOGY | | 11/21/2012 | | Results for this | | | | 12:00 AM | | procedure are in the | | | | PDT | | results section. | + +--------+ + + + documented in this encounter Results RADIOLOGY (02/09/2013 12:00 AM PDT) + + + | Narrative | Performed At | + + + | | | | | | + + + + + | Procedure Note | + + | Simran Lobo - 02/17/2013 8:51 AM PDT | + + RADIOLOGY (11/21/2012 12:00 AM PDT) + + + | Narrative | Performed At | + + + | | | | | | + + + + + | Procedure Note | + + | Simran Lobo - 02/17/2013 8:51 AM PDT | + + documented in this encounter Visit Diagnoses + + | Diagnosis | + + | Morbid obesity (HCC) - Primary Morbid obesity | + + | Hernia Hernia of unspecified site of abdominal cavity without mention of obstruction | | or gangrene | + + documented in this encounter"
--- OUTSIDE RECORDS SUMMARY | ~2019-05-23 | XMS | Encounter Summary ---
Demographics + + + | Address | [address] | | | [place] [address] | + + + | Home Phone | | + + + | Preferred Language | Unknown | + + + | Marital Status | Single | + + + | Pentecostalism Affiliation | NON | + + + [...] + | Katalina Padilla | ECON | [address] | | | | | [place], [place] | | | | | [address] | | + + + + + | Ellie Vang | ECON | Unknown | | + + + + + Care Team Providers + +------+ + | Care Furnace Tender Name | Role | Phone | + +------+ + | Kenyatta Cardenas MD | PCP | | + +------+ + Encounter Details +--------+ + + + + | Date | Type | Department | Care Team | Description | +--------+ + + + + | 03/18/ | Transcribe | Endoscopic | Transcribe | | | 2019 | Orders | Procedural Unit at | Encounter, Provider, | | | | | [facility] | MD [address] | | | | | [address] | [place] [address] | | | | | Mailcode: OC2L | | | | | | [facility] | | | | | | and Healing, | | | | | | [address] | | | | | | [place], [place] | | | | | | [address] | | | | | | [phone] | | | +--------+ + + + [...] | | | | | [place], [place] | | | | | | [address] | | | | | | [phone] | | | | | | | | +--------+ + + + + documented as of this encounter Results EGD (04/07/2019 10:53 AM PDT) + + | Specimen | + + | | + + + + + | Narrative | Performed At | + + + | MRN: | [facility] | | [id number] Date: 04/07/2019Patient Name: Elzbieta Curtis #: | ENDOSCOPY | | [id number] of : 1975CSN: [id number] Type: | | | AmbulatoryRoom: Endo 5Procedure: Upper GI | | | endoscopyIndications: Generalized abdominal pain, Nausea | | | with vomitingProviders: TAL LUND MD | | | (Doctor), BERNARDO BERNARD RN (Nurse), | | | [employer] (Charging Manipulator)Referring MD: SYLVIA Kilpatrick | | | KENNY SAMPSONPRequestdonya Provider: Medicines: | | | Midazolam 8 mg IV, Fentanyl 200 micrograms IVComplications: | | | No immediate complications.Procedure: Pre-Anesthesia | | | Assessment: - Prior to the procedure, a | | | History and Physical was performed, and | | | patient medications and allergies were | | | reviewed. The patient is competent. The risks and | | | benefits of the procedure and the sedation options and | | | risks were discussed with the patient. All | | | questions were answered and informed | | | consent was obtained. Patient | | | identification and proposed procedure were verified by | | | the physician in the procedure room. Mental Status | | | Examination: alert and oriented. Airway | | | Examination: normal oropharyngeal | | | airway and neck mobility. Respiratory | | | Examination: clear to auscultation. CV | | | Examination: normal. Prophylactic Antibiotics: The | | | patient does not require prophylactic antibiotics. Prior | | | Anticoagulants: The patient has taken no | | | previous anticoagulant or antiplatelet | | | agents. ASA Grade Assessment: III - A | | | patient with severe systemic disease. | | | After reviewing the risks and benefits, the | | | patient was deemed in satisfactory condition to undergo | | | the procedure. The anesthesia plan was to use | | | moderate sedation / analgesia | | | (conscious sedation). Immediately prior | | | to administration of medications, the patient was | | | re-assessed for adequacy to receive sedatives. The heart | | | rate, respiratory rate, oxygen | | | saturations, blood pressure, adequacy | | | of pulmonary ventilation, and response | | | to care were monitored throughout the | | | procedure. The physical status of the patient was | | | re-assessed after the procedure. | | | Prior to the procedure, a History and Physical with | | | airway assessment was performed (see patient | | | record), and patient medications and | | | allergies were reviewed. The risks and | | | benefits of the procedure and the sedation | | | options and risks were discussed. All questions were | | | answered and informed consent was obtained. After | | | reviewing the risks and benefits, the | | | patient was deemed in satisfactory | | | condition to undergo the procedure. | | | Immediately prior to administration of medications, the | | | patient was re-assessed for adequacy to receive | | | sedatives. The heart rate, respiratory | | | rate, oxygen saturations, blood | | | pressure, adequacy of pulmonary | | | ventilation, and response to care were monitored | | | throughout the procedure. The physical status of the | | | patient was re-assessed after the procedure. | | | The Olympus [id number] Endoscope #[id number] | | | was introduced through the mouth, and | | | advanced to the second part of | | | duodenum. The upper GI endoscopy was performed with | | | moderate difficulty due to the patient's agitation. | | | Successful completion of the procedure was | | | aided by increasing the dose of | | | sedation medication. The patient | | | tolerated the procedure poorly due to the patient's | | | agitation.Estimated Blood Loss: Estimated blood | | | loss: none.Findings: The esophagus was normal. Evidence of | | | a Frandy-en-Y gastrojejunostomy was found. The gastrojejunal | | | anastomosis was characterized by healthy appearing mucosa. This was | | | traversed. The jejunojejunal anastomosis was characterized by | | | healthy appearing mucosa. The examined duodenum was | | | normal. The examined jejunum was normal.Moderate Sedation: | | | Moderate (conscious) sedation was administered by the endoscopy nurse | | | and supervised by the endoscopist. The following parameters | | | were monitored: oxygen saturation, heart rate, blood pressure, | | | and response to care. Total physician intraservice time was 15 | | | minutes.Impression: - Normal esophagus. | | | - Frandy-en-Y gastrojejunostomy and gastric bypass with | | | gastrojejunal anastomosis characterized | | | by healthy appearing mucosa. | | | - Normal examined duodenum limb. | | | - Normal examined jejunual limb. | | | - No reason for symptoms noted on this exam. Anastamoses | | | are all widely patent, and no ulcerations | | | present. There is no stenosis at the | | | gastro-jejunostomy anastamosis (as had | | | been suggested on the 03/22/2019 UGI). - | | | No specimens collected.Recommendation: - Discharge patient to | | | home. - Resume previous diet. | | | - Continue present medications. | | | - Return to Bariatric clinic at appointment to be | | | scheduled. - | | | Further endoscopies should be done with deep sedation | | | given signficant anxiety and agitation despite high | | | dose conscious sedation | | | medications.GLENNA Alcantar MD04/07/2019 | | | 11:32:05 AMThis report has been signed electronically.Number of | | | Addenda: 0Note Initiated On: 04/07/2019 10:53 AM | | |This report has been signed electronically. | | |Number of Addenda: 0 | | |Note Initiated On: 04/07/2019 10:53 AM | | + + + + +---------+ + + | Performing | Address | City/State/Zipcode | Phone Number | | Organization | | | | + +---------+ + + | [facility] | | | | + +---------+ + + documented in this encounter Visit Diagnoses + + | Diagnosis | + + | History of Frandy-en-Y gastric bypass - Primary Bariatric surgery status | + + | Nausea and vomiting, intractability of vomiting not specified, unspecified vomiting | | type | + + | Diarrhea, unspecified type | + + documented in this encounter"
--- OUTSIDE RECORDS SUMMARY | ~2019-05-23 | XMS | Encounter Summary ---
Demographics + + + | Address | [address] | | | [place] [address] | + + + | Home Phone | | + + + | Preferred Language | Unknown | + + + | Marital Status | Single | + + + | Hinduism Affiliation | NON | + + + | Race | White | + + + | Ethnic Group | Not or | + + + Author + + + | Organization | Unknown | + + + | Address | Unknown | + + + | Phone | Unavailable | + + + Support + + + + + | Name | Relationship | Address | Phone | + + + + + | Katalina Padilla | ECON | [address] | | | | | [place], [place] | | | | | [address] | | + + + + + | Ellie Vang | ECON | Unknown | | + + + + + Care Team Providers + +------+ + | Care Windrower Operator Name | Role | Phone | + +------+ + PCP | Unavailable | + +------+ + Encounter Details +--------+ + + + + | Date | Type | Department | Care Team | Description | +--------+ + + + + | 05/13/ | Results | | Other, Faculty | | | 1992 | Only | | [phone] | | +--------+ + + + + [...] | | | | | [place] [facility] [place] | | | | | | [address] | | | | | | [phone] | | | | | | | | +--------+ + + + + documented as of this encounter Procedures + +--------+ + + + | Procedure Name | Priori | Date/Time | Associated Diagnosis | Comments | | | ty | | | | + +--------+ + + + | CHEST, 1 VIEW, | Routin | 05/14/1993 | | Results for this | | PORTABLE | e | 1:40 AM | | procedure are in the | | | | PDT | | results section. | + +--------+ + + + | CT HEAD WO CONTRAST | Routin | 05/14/1993 | | Results for this | | | e | 12:20 AM | | procedure are in the | | | | PDT | | results section. | + +--------+ + + + | CT HEAD WO CONTRAST | Routin | 05/13/1993 | | Results for this | | | e | 7:05 PM | | procedure are in the | | | | PDT | | results section. | + +--------+ + + + documented in this encounter Results CHEST, 1 VIEW, PORTABLE (05/14/1993 1:40 AM PDT) + + + + + + | Component | Value | Ref Range | Performed | Pathologist | | | | | At | Signature | + + + + + + | CHEST, 1 | Radiologist 1: BINH | | | | | VIEW, | SALVATORE JENNINGS | | | | | PORTABLE | DYLAN | | | | | | | | | | | | [phone] SINGLE | | | | | | PORTABLE CHEST: | | | | | | 10-19-93 AT 0140 HOURS | | | | | | | | | | | | | | | | | | Dictated: 05-14-93 | | | | | | FINDINGS: Limited, | | | | | | relatively | | | | | | overpenetrated, single | | | | | | view of thepatient in a | | | | | | recumbent posture shows | | | | | | that a central venous | | | | | | lineintroduced by a | | | | | | right IJ approach | | | | | | terminates at the | | | | | | cavoatrialjunction. | | | | | | Patchy density in | | | | | | right lung and left | | | | | | lower lobe suspiciousfor | | | | | | possible pneumonia. | | | | | | No evidence of | | | | | | pneumothorax. | | | | | | IMPRESSION: Bilateral | | | | | | infiltrates, right | | | | | | greater than left, | | | | | | suspicious forpneumonia. | | | | | | END OF IMPRESSION: | | | | + + + + + + + + | Specimen | + + | | + + + + + | Narrative | Performed At | + + + | Ordered by CARINA LANDA | | + + + + +---------+ + + | Performing | Address | City/State/Zipcode | Phone Number | | Organization | | | | + +---------+ + + | [facility] | | | | | [facility] | | | | + +---------+ + + CT HEAD WO CONTRAST (05/14/1993 12:20 AM PDT) + + + + + + | Component | Value | Ref Range | Performed | Pathologist | | | | | At | Signature | + + + + + + | CT HEAD WO | Radiologist 1: BRIDGETT | | | | | CONTRAST | MORELIA-Radiologist 2: | | | | | | RAISA MONTIEL, | | | | | | DYLAN BHAKTA | | | | | | | | | | | | | | | | | | | | | | | | [id number] SCAN OF | | | | | | THE BRAIN, PERFORMED | | | | | | 05/14/93 AT 0020 HOURS: | | | | | | Dictated | | | | | | 05/14/93 at 1200 hours. | | | | | | PROCEDURE: Contiguous | | | | | | 10 mm transaxial images | | | | | | from the base of | | | | | | theskull to the vertex | | | | | | were obtained. The | | | | | | films are | | | | | | mismarked--nocontrast | | | | | | was administered to this | | | | | | patient. FINDINGS: | | | | | | The patient is post | | | | | | interventional | | | | | | angiographic procedure.A | | | | | | small amount of air is | | | | | | seen in the region of | | | | | | the sagittal sinus.There | | | | | | has been no change in | | | | | | the appearance of the | | | | | | subarachnoidhemorrhage | | | | | | and there are no new | | | | | | sites of occlusion or | | | | | | hemorrhage. Thedegree | | | | | | of cerebral edema is | | | | | | unchanged as well, with | | | | | | a poorlyvisualized | | | | | | quadrigeminal and | | | | | | suprasellar cistern. | | | | | | IMPRESSION: 1. Status | | | | | | post interventional | | | | | | angiographic procedure | | | | | | with a smallamount of | | | | | | air in the region of the | | | | | | sagittal sinus. 2. No | | | | | | change in the | | | | | | appearance of the | | | | | | subarachnoid hemorrhage | | | | | | orcerebral edema. 3. | | | | | | No new sites of | | | | | | occlusion or hemorrhage | | | | | | are noted. END OF | | | | | | IMPRESSION: | | | | + + + + + + + + | Specimen | + + | | + + + + + | Narrative | Performed At | + + + | Ordered by CARINA LANDA | | + + + + +---------+ + + | Performing | Address | City/State/Zipcode | Phone Number | | Organization | | | | + +---------+ + + | [facility] | | | | | [facility] | | | | + +---------+ + + CT HEAD WO CONTRAST (05/13/1993 7:05 PM PDT) + + + + + + | Component | Value | Ref Range | Performed | Pathologist | | | | | At | Signature | + + + + + + | CT HEAD WO | Radiologist 1: BRIDGETT | | | | | CONTRAST | MORELIA-Radiologist 2: | | | | | | RAISA MONTIEL, | | | | | | DYLAN BHAKTA | | | | | | | | | | | | | | | | | | | | | | | | [id number] SCAN OF | | | | | | THE BRAIN, PERFORMED | | | | | | 05/13/93 AT 1900 HOURS: | | | | | | Dictated | | | | | | 05/14/93 at 1200 hours. | | | | | | PROCEDURE: The study | | | | | | consists of 10 mm | | | | | | contiguous axial | | | | | | sliceswithout contrast | | | | | | administration. | | | | | | FINDINGS: There is a | | | | | | sharply marginated | | | | | | high-attenuation | | | | | | areameasuring | | | | | | approximately 1.5 x 1.0 | | | | | | cm which anatomically | | | | | | corresponds tothe region | | | | | | of the sagittal sinus | | | | | | and likely represents a | | | | | | thrombosis inthe | | | | | | sagittal sinus. In | | | | | | addition, there is | | | | | | increased attenuation | | | | | | alongthe posterior falx | | | | | | which extends to the | | | | | | vertex of the brain and | | | | | | likelyrepresents a | | | | | | subarachnoid hemorrhage. | | | | | | The quadrigeminal | | | | | | cistern andsylvian | | | | | | fissures are not well | | | | | | visualized. The | | | | | | suprasellar cistern | | | | | | ispoorly visualized. | | | | | | These findings are | | | | | | consistent with | | | | | | increasedintracranial | | | | | | pressure. IMPRESSION: | | | | | | 1. 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 | | | | | | Subarachnoid | | | | | | hemorrhage along the | | | | | | posterior falx.3. CT | | | | | | evidence of diffuse | | | | | | cerebral swelling. END | | | | | | OF IMPRESSION: | | | | + + + + + + + + | Specimen | + + | | + + + + + | Narrative | Performed At | + + + | Ordered bailey GREENE | | + + + + +---------+ + + | Performing | Address | City/State/Zipcode | Phone Number | | Organization | | | | + +---------+ + + | [facility] | | | | | [facility] | | | | + +---------+ + + documented in this encounter Visit Diagnoses Not on filedocumented in this encounter"
--- OUTSIDE RECORDS SUMMARY | ~2019-05-23 | XMS | Encounter Summary ---
Demographics + + + | Address | [address] | | | [place] [address] | + + + | Home Phone | | + + + | Preferred Language | Unknown | + + + | Marital Status | Single | + + + | Orthodoxy Affiliation | NON | + + + [...] + | Katalina Padilla | ECON | [address] | | | | | [place], [place] | | | | | [address] | | + + + + + | Ellie Vang | ECON | Unknown | | + + + + + Care Team Providers + +------+ + | Care Career Technology Teacher Name | Role | Phone | + [...] | Other | Pain | Diagnoses | Tilgner, | Indoor Landscaper/Gardener Psych | | | | Management | Morbid | Shereen Murcia ACNP | [facility] [address] | | | | | obesity with | [address] | | | | | BMI of [address] | [address] | Mailcode: | | | | | and over, | [place], [place] | [address] | | | | | adult ([facility]) | [address] | for Health | | | | | Procedures | Phone: | and Healing, | | | | | CONSULT TO | [phone] | Building [address], | | | | | PAIN | Fax: | 15th Floor | | | | | MANAGEMENT | [phone] | [place], [place] | | | | | [place] | | [address] | | | | | PSYCHIATRIC | | Phone: | | | | | DIAGNOSTIC | | [phone] | | | | | EVAL, NO MED | | Fax: | | | | | [facility] [place] | | [phone] | | | | | PSYCH TSTNG | | | | | | | PSYCH/PHYS | | | +--------+---------+ + + + + Encounter Details +--------+---------+ + + + | Date | Type | Department | Care Team | Description | +--------+---------+ + + + | 10/02/ | Office | [facility] at [facility] | Leslie Mistry, | Morbid obesity | | 2018 | Visit | 15th Floor [address] | PhD [address] [facility] | ([facility]); Bipolar | | | | Brenton Flannery Mailcode: | Ryan Grace | affective disorder, | | | | [facility] for | [place], [place] | remission status | | | | Health and Healing, | [address] | unspecified ([facility]); | | | | | [phone] | BMI 60.0-69.9, adult | | | | Floor [place], [place] | | ([facility]); Anxiety | | | | [address] | | | | | | [phone] | | | +--------+---------+ + + + [...] documented as of this encounter Progress Notes Leslie Mistry, PhD - 10/02/2017 11:00 AM PSTBARIATRIC EVALUATION (INCLUDING DIET AND EX ERCISE COUNSELING) Consultation Date: 10/02/2017 Name: Elzbieta Cristina : 1975 Medical Record: [id number] Age: 42 y.o. Weight today, per patient report: 305 lbs Weight on 09/11/17: 389, BMI 73.54 Identifying Information: Elzbieta Cristina is a 42 y.o. female who lives with her mother in [place], [place]. She was referred for psychological evaluation [...] of cereal with skim milk and a ethiopian yogurt L: white bread and cheese and [...] laundry. For enjoym ent the patient watches [employer] with her girlfriend. She is socially active with her fami ly (sister, mother, daughter, grandchildren) and her girlfriend. [...] Social History: Elzbieta Cristina was born in [place] and lived with her mother and sister. [...] time I spent was approximately 60 minutes whti-ft-ymkz with the patient and approxima tely 2 hours of mgi-yuje-rm-face testing, interpreting and synthesizing results. Leslie Mistry, PhD Clinical Psychologist [facility] [address] [place] [address] [facility], [address]th [place] [address] [email or web address] signed by Leslie Mistry, PhD at 10/08/2017 12:26 PM PDTdocume nted in this encounter Plan of Treatment +--------+ [...] | | | | | [place], [place] | | | | | | [address] | | | | | | [phone] | | | | | | | | +--------+ + + + + documented as of this encounter Visit Diagnoses + + | Diagnosis | + + | Morbid obesity (HCC) Morbid obesity | + + | Bipolar affective disorder, remission status unspecified ([facility]) | + + | BMI 60.0-69.9, adult ([facility]) Body Mass Index 60.0-69.9, adult | + + | Anxiety Anxiety state, unspecified | + + documented in this encounter
--- OUTSIDE RECORDS SUMMARY | ~2019-05-23 | XMS | Encounter Summary ---
Demographics + + + | Address | [address] | | | [place] [address] | + + + | Home Phone [...] + | Katalina Padilla | ECON | [address] | | | | | [place], [place] | | | | | [address] | | + + + + + | Ellie Vang | ECON | Unknown | | + + + + + Care Team Providers + +------+ + | Care Service Car Driver Name | Role | Phone | + +------+ + | Fadi Goodrich DO | PCP | | + +------+ + Encounter Details +--------+ + + + + | Date | Type | Department | Care Team | Description | +--------+ + + + + | 11/09/ | Abstract | Cardiology | Randell Franks, | | | 2014 | | Preventive at [facility] | MD [address] | | | | | [address] | Ave [place], [place] | | | | | Mailcode: CH9A | [address] | | | | | [facility] | [phone] | | | | | and Healing, | | | | | | [address] | | | | | | [place], [place] | | | | | | [address] | | | | | | [phone] | | | +--------+ + + + [...] 2018 | Visit | | MD [address] | | | | | | [place] | | | | | | [address] | | | | | | [phone] | | | | | | | | +--------+ + + + + documented as of this encounter Visit Diagnoses Not on filedocumented in this encounter"
--- OUTSIDE RECORDS SUMMARY | ~2019-05-23 | XMS | Encounter Summary ---
Demographics + + + | Address | [address] | | | [place] [address] | + + + | Home Phone | | + + + | Preferred Language | Unknown | + + + | Marital Status | Single | + + + | Nondenominational Affiliation | NON | + + + [...] + | Katalina Padilla | ECON | [address] | | | | | [place], [place] | | | | | [address] | | + + + + + | Ellie Vang | ECON | Unknown | | + + + + + Care Team Providers + +------+ + | Care Temporary Office Assistant Name | Role | Phone | + +------+ + | Fadi Goodrich DO | PCP | | + +------+ + Encounter Details +--------+ + + + + | Date | Type | Department | Care Team | Description | +--------+ + + + + | 11/04/ | Telephone | Pain Center at [facility] | Leslie Mistry, | | | 2017 | | Floor [address] | PhD [address] [facility] | | | | | Brenton Flannery Mailcode: | [address] | | | | | CH15P [place], [place] | | | | | Health and Healing, | [address] | | | | | [facility] | [phone] | | | | | Floor [place], [place] | | | | | | [address] | | | | | | [phone] | | | +--------+ + + + [...] [place] | | | | | | [address] | | | | | | [phone] | | | | | | | | +--------+ + + + + documented as of this encounter Visit Diagnoses Not on filedocumented in this encounter"
--- OUTSIDE RECORDS SUMMARY | ~2019-05-23 | XMS | Encounter Summary ---
Demographics + + + | Address | [address] | | | [place] [address] | + + + | Home Phone [...] Author + + + | Author | [facility] | + + + | Organization | [facility] | + + + | Address | Unknown | + + + | Phone | Unavailable | + + + Support + + + + + | Name | Relationship | Address | Phone | + + + + + | Katalina Padilla | ECON | [address] | | | | | [place], [place] | | | | | [address] | | + + + + + | Ellie Vang | ECON | Unknown | | + + + + + Care Team Providers + +------+ + | Care Auto Glass Installer Name | Role | Phone | + [...] Center at [facility] [address] | MD [address] | surgery (Primary | | | | [address] | [place], [place] | Dx); History of | | | | Mailcode: Center | [address] | Frandy-en-Y gastric | | | | for Health and | | bypass | | | | [facility] | | | | | | [place], [place] | | | | | | [address] | | | | | | [phone] | | | +--------+---------+ + + + [...] to the healing stomach. There are also superintendent terminal complications of poor wound healing and gastric u lcers. These ulcers are started by smoking or using other nicotine products (vapor cigarett es etc). Gastric bypass patients should also avoid NSAIDS(ibuprofen, advil, motrin, naprosyn/naproxe n/aleve) to prevent gastric/marginal ulcers. Please visit with our Business Systems Architect (RD) for instructions about your Bariatric diet, assistance with calorie counts, tips and tricks for working with your diet restrictions, an d recipes after bariatric surgery. Daily yogurt; even just 1 tablespoon twice a day will provide enough probiotics to optimize digestion. Try to use a high-quality, probiotic-dense yogurt (eg Zaria's, [place], Lif eway Kefir, Occupational Therapy Aides Teacher Duke's Armenian Yogurt). Remember to chew your food well, [...] protein daily, and 64 oz water daily. Automation Engineer just changed diet to he lp her [...] by communicating with her mother - Follow Automation Engineer recommendations to help with nausea (decrease volume, [...] list as pertains to bariatric surgery today. Anias Dillon MD PGY-1, Red Surgery Pager: [phone] documented in this encounter Plan of Treatment [...] | | | | | [place], [place] | | | | | | [address] | | | | | | [phone] | | | | | | | [...]
--- OUTSIDE RECORDS SUMMARY | ~2019-05-23 | XMS | Encounter Summary ---
Demographics + + + | Address | [address] | | | [place] [address] | + + + | Home Phone | | + + + | Preferred Language | Unknown | + + + | Marital Status | Single | + + + | Muslim Affiliation | NON | + + + | Race | White | + + + | Ethnic Group | Not or | + + + Author + + + | Author | [facility] | + + + | Organization | [facility] | + + + | Address | Unknown | + + + | Phone | Unavailable | + + + Support + + + + + | Name | Relationship | Address | Phone | + + + + + | Katalina Padilla | ECON | [address] | | | | | [place], [place] | | | | | [address] | | + + + + + | Ellie Vang | ECON | Unknown | | + + + + + Care Team Providers + +------+ + | Care Insulation Estimator Name | Role | Phone | + +------+ + | Kenyatta Cardenas MD | PCP | | + +------+ + Encounter Details +--------+ + + + + | Date | Type | Department | Care Team | Description | +--------+ + + + + | 12/01/ | Documentati | Digestive Health | Clinic, Surgery | | | 2016 | on | Center at [place] [address] | | | | | | PR[place] Flannery | | | | | | Mailcode: [place] | | | | | | for Health and | | | | | | [facility] [address] | | | | | | [place], [place] | | | | | | [address] | | | | | | [phone] | | | +--------+ + + + [...] | | | | | [place] | | | | | | [address] | | | | | | [phone] | | | | | | | | +--------+ + + + + documented as of this encounter Visit Diagnoses Not on filedocumented in this encounter"
--- OUTSIDE RECORDS SUMMARY | ~2019-05-23 | XMS | Encounter Summary ---
Demographics + + + | Address | [address] | | | [place] [address] | + + + | Home Phone [...] Author | [facility] | + + + | Organization | [facility] | + + + | Address | Unknown | + + + | Phone | Unavailable | + + + Support + + + + + | Name | Relationship | Address | Phone | + + + + + | Katalina Padilla | ECON | [address] | | | | | [place], [place] | | | | | [address] | | + + + + + | Ellie Vang | ECON | Unknown | | + + + + + Care Team Providers + +------+ + | Care Neighborhood Planner Name | Role | Phone | + +------+ + | Kenyatta Cardenas MD | PCP | | + +------+ + Encounter Details +--------+ + + + + | Date | Type | Department | Care Team | Description | +--------+ + + + + | 05/03/ | Inside | Endoscopic | Ion Pandey, | | | 2018 | Referral | Procedural Unit at | MD [address] | | | | Order | [facility] | [place], [place] | | | | | [address] | [address] | | | | | Mailcode: OC2L | [phone] | | | | | [facility] | | | | | | and Healing, | | | | | | [address] | | | | | | [facility] [place] | | | | | | [address] | | | | | | [phone] | | | +--------+ + + + [...] | | | | | [place], [place] | | | | | | [address] | | | | | | [phone] | | | | | | | | +--------+ + + + + +------+ +--------+ + + | Name | Type | Priori | Associated Diagnoses | Order Schedule | | | | ty | | | +------+ +--------+ + + | EGD | Procedures | Routin | History of | Expected: 05/03/2018 | | | | e | Frandy-en-Y gastric | | | | | | bypass Nausea and | | | | | | vomiting, | | | | | | intractability of | | | | | | vomiting not | | | | | | specified, | | | | | | unspecified vomiting | | | | | | type Decreased | | | | | | oral intake | | | | | | Dehydration | | +------+ +--------+ + + documented as of this encounter Visit Diagnoses + + | Diagnosis | + + | 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
--- OUTSIDE RECORDS SUMMARY | ~2019-05-23 | XMS | Encounter Summary ---
Demographics + + + | Address | [address] | | | [place] [address] | + + + | Home Phone | | + + + | Preferred Language | Unknown | + + + | Marital Status | Single | + + + | Uatsdin Affiliation | NON | + + + | Race | White | + + + | Ethnic Group | Not or | + + + Author + + + | Author | [facility] | + + + | Organization | [facility] | + + + | Address | Unknown | + + + | Phone | Unavailable | + + + Support + + + + + | Name | Relationship | Address | Phone | + + + + + | Katalina Padilla | ECON | [address] | | | | | [place], [place] | | | | | [address] | | + + + + + | Ellie Vang | ECON | Unknown | | + + + + + Care Team Providers + +------+ + | Care Electronic Plotting System Operator Name | Role | Phone | [...] Anesthesia | 6A Intra [facility] | Cory Enriquez | | | 2014 | Event | [facility] | MD Raza [address] | | | | | Admitting Desk | [address] | | | | | Located on the 9 | [place], [place] | | | | | floor [address] | [address] | | | | | [address] | [phone] | | | | | [place], [place] | | | | | | [address] | Marcial Brunner CRNA | | | | | | [address] | | | | | | [place], | | | | | | [place] [address] | | | | | | [phone] | | | | | | | | +--------+ + + + + Anesthesia Record + + + + + | Procedure Name | Responsible | Anesthesia Start | Anesthesia Stop Time | | | Anesthesiologist | Time | | + + + + + | INCISIONAL HERNIA | Cory Enriquez, | 03/01/15 0951 | 03/01/15 1213 | | REPAIR (N/A Abdomen) | MD | | | + + + + + +----+---+ + + | Da | T | Event | Comment | | te | i | | | | | m | | | | | e | | | +----+---+ + + | 08 | 0 | An Start | | | /0 | 9 | | | | 6/ | 5 | | | | 20 | 1 | | | | 15 | | | | +----+---+ + + | | 0 | Eq Check | Anesthesia machine checked Equipment verified | | | 9 | | | | | 5 | | | | | 4 | | | +----+---+ + + | | 0 | Pt. Check | Prior to anesthesia start, pt. Identified, examined, chart | | | 9 | | reviewed, [place] held, anesthetic plan made or approved by | | | 5 | | attending anesthesiologist. NPO status confirmed as appropriate | | | 4 | | for procedure Preoperative evaluation: unchanged | +----+---+ + + | | 0 | An Start | | | | 9 | Data | | | | 5 | | | | | 4 | | | +----+---+ + + | | 1 | Vitals | Monitors applied Vital signs checked Patient ready for anesthesia | | | 0 | Checked | | | | 1 | | | | | 0 | | | +----+---+ + + | | 1 | Std. Airway | | | | 0 | Mgt. | | | | 1 | | | | | 4 | | | +----+---+ + + | | 1 | Ready | | | | 0 | | | | | 1 | | | | | 7 | | | +----+---+ + + | | 1 | Abx | | | | 0 | Administere | | | | 3 | d | | | | 0 | | | +----+---+ + + | | 1 | Local | | | | 0 | Anesthetic | | | | 3 | by Surgeon | | | | 5 | | | +----+---+ + + | | 1 | Incision | | | | 0 | | | | | 3 | | | | | 7 | | | +----+---+ + + | | 1 | Quick Note | 28 fr nasal trumpet placed in right nare without any difficulties | | | 0 | | and atraumatically. | | | 4 | | | | | 9 | | | +----+---+ + + | | 1 | Surgery end | | | | 2 | | | | | 0 | | | | | 4 | | | +----+---+ + + | | 1 | an cookie now | | | | 2 | | | | | 0 | | | | | 4 | | | +----+---+ + + | | 1 | an stop | | | | 2 | data | | | | 0 | | | | | 4 | | | +----+---+ + + | | 1 | Anesthesia | | | | 2 | End | | | | 1 | | | | | 3 | | | +----+---+ + + +------+ | Meds | +------+ + + + | Name | Total | + + + | midazolam | 2 mg | + + + | fentaNYL | 250 mcg | + + + | lidocaine 2% | 80 mg | + + + | propofol | 250 mg | + + + | rocuronium | 70 mg | + + + | ondansetron | 4 mg | + + + | neostigmine | 2 mg | + + + | glycopyrrolate | 0.2 mg | + + + | esmolol | 20 mg | + + + | PHENYLEPHrine | 1,500 mcg | + + + | succinylcholine | 140 mg | + + + | ceFAZolin | 2,000 mg | + + + | ePHEDrine | 5 mg | + + + | LR | 1,000 mL | + + + + + | Name | + + | O2 FR Avance (Total Liters) | + + | Air FR Avance (l/min) | + + | Insp Dwaine | + + | Et Dwaine | + + | Insp Sevo | + + | Et Sevo | + + + + | No blood administrations on file. | + + +--------+ + + + | Type | Details | Placement | Removal | +--------+ + + + | RETIRE | 11/06/12; 0603; Under neath | 11/06/12 0603 by | 05/14/17 1622 by | | D - | joanus bilaterally; Yes; | Miladis Braga RN | Discontinued After | | Wound | Bilateral:; abdomen; ulceration; | | Discharge | | | 05/14/17 (Automatic cleanup per | | | | | RA 3006--contact admin for | | | | | questions.); 1622 (Automatic | | | | | cleanup per RA 3006--contact | | | | | admin for questions.) | | | +--------+ + + + | RETIRE | 11/06/12; 1147; No; anterior; | 11/06/12 1147 by | 05/14/17 1622 by | | D - | abdomen; 05/14/17 (Automatic | Luanne Bonilla RN | Discontinued After | | Incisi | cleanup per RA 3006--contact | | Discharge | | on | admin for questions.); 1622 | | | | | (Automatic cleanup per RA | | | | | 3006--contact admin for | | | | | questions.) | | | +--------+ + + + | RETIRE | 11/06/12; 1328; 05/14/17 | 11/06/12 1328 by | 05/14/17 1622 by | | D - | (Automatic cleanup per RA | Luanne oBnilla RN | Discontinued After | | Drains | 3006--contact admin for | | Discharge | | | questions.); 1622 (Automatic | | | | (wound | cleanup per RA 3006--contact | | | | s/surg | admin for questions.); No; 19; | | | | ical) | Samson; Abdomen | | | +--------+ + + + | RETIRE | 02/07/14; Laparoscopic ports x 5; | 02/07/14 0000 by | 05/14/17 1622 by | | D - | No; anterior; abdomen; 05/14/17 | Lizzeth Lyn RN | Discontinued After | | Incisi | (Automatic cleanup per RA | | Discharge | | on | 3006--contact admin for | | | | | questions.); 1622 (Automatic | | | | | cleanup per RA 3006--contact | | | | | admin for questions.) | | | +--------+ + + + | RETIRE | 02/07/14; 0325; pannus | 02/07/14 0325 by | 05/14/17 1622 by | | D - | excoriation; Yes; Bilateral:, | Elke Davis RN | Discontinued After | | Wound | lower; panus; abrasion, | | Discharge | | | ulceration (excoriation); | | | | | 05/14/17 (Automatic cleanup per | | | | | RA 3006--contact admin for | | | | | questions.); 1622 (Automatic | | | | | cleanup per RA 3006--contact | | | | | admin for questions.) | | | +--------+ + + + | Wound | 02/28/15; 2100; Yes; Other | 02/28/15 2100 by | 05/15/17 0659 by | | | (comment) (bilateral); panus; | Mariah Bonds RN | Discontinued After | | | Skin tear; Moisture associated | | Discharge | | | dermatitis; 05/15/17 (Automatic | | | | | cleanup per RA 3006--contact | | | | | admin for questions.); 0659 | | | | | (Automatic cleanup per RA | | | | | 3006--contact admin for | | | | | questions.) | | | +--------+ + + + | Periph | 02/28/15; 2231; Right; Forearm; | 02/28/152231 by | 03/02/15 1816 by | | eral | 22 g; Lidocaine; No; Positive; | Zaria Zaragoza RN | Branden Cantu | | IV | 03/02/15; 1816 | | KELSIE Rodrigues | +--------+ + + + | Incisi | 03/01/15; Dr. CANTU; Other | 03/01/15 0000 by | 05/15/17 0659 by | | on | (comment); Lower, Midline; | Francisco Guan RN | Discontinued After | | | abdomen; 05/15/17 (Automatic | | Discharge | | | cleanup per RA 3006--contact | | | | | admin for questions.); 0659 | | | | | (Automatic cleanup per RA | | | | | 3006--contact admin for | | | | | questions.) | | | +--------+ + + + | Urethr | 03/01/15; 919; Magui; 16 Fr.; 5 | 03/01/15 09 by | 03/01/151904 by | | al | mL; 03/01/15; 1904; Per order | Francisco Guan RN | Humble Aquino CNA | | Mahin | | | | | er | | | | +--------+ + + [...] | | 2019 | Visit | | [address] | | | | | | [place], [place] | | | | | | [address] | | | | | | [phone] | | | | | | | [...] (ANCEF) injection | Given | 03/01/20 | 2,000 mg | | | | intravenous, INTRAPROCEDURE PRN, | | 15 10:30 | | | | | Starting Jasmyne 03/01/15 at 1030, | | AM PDT | | | | | Until Jasmyne 03/01/15 at 1204 | | | | | | + +--------+ + +------+------+ +---+---+ | | | +---+---+ + +-------+ +------+---+---+ | ePHEDrine injection | Given | 03/01/20 | 5 mg | | | | intravenous, INTRAPROCEDURE PRN, | | 15 11:31 | | | | | Starting Jasmyne 03/01/15 at 1131, | | AM PDT | | | | | Until Jasmyne 03/01/15 at 1204 | | | | | | + +-------+ +------+---+---+ +---+---+ | | | +---+---+ + +-------+ +-------+---+---+ | esmolol (BREVIBLOC) injection | Given | 03/01/20 | 20 mg | | | | intravenous, INTRAPROCEDURE PRN, | | 15 10:28 | | | | | Starting Jasmyne 03/01/15 at 1028, | | AM PDT | | | | | Until Jasmyne 03/01/15 at 1204 | | | | | | + +-------+ +-------+---+---+ +---+---+ | | | +---+---+ + +-------+ +---------+---+---+ | fentaNYL citrate (PF) | Given | 03/01/20 | 100 mcg | | | | (SUBLIMAZE) injection | | 15 10:21 | | | | | INTRAPROCEDURE PRN, Starting Jasmyne | | AM PDT | | | | | 03/01/15 at 1011, Until Jasmyne 03/01/15 | | | | | | | at 1204, sedation | | | | | | + +-------+ +---------+---+---+ +-------+ +---------+---+---+ | Given | 03/01/20 | 150 mcg | | | | | 15 10:11 | | | | | | AM PDT | | | | +-------+ +---------+---+---+ +---+---+ | | | +---+---+ + +-------+ +--------+---+---+ | glycopyrrolate (TREVER) | Given | 03/01/20 | 0.2 mg | | | | injection INTRAPROCEDURE PRN, | | 15 11:46 | | | | | Starting Jasmyne 03/01/15 at 1146, | | AM PDT | | | | | Until Jasmyne 03/01/15 at 1204 | | | | | | + +-------+ +--------+---+---+ +---+---+ | | | +---+---+ + +---------+ +---+---+---+ | lactated ringers IV | New Bag | 03/01/20 | | | | | INTRAPROCEDURE CONTINUOUS PRN, | | 15 11:32 | | | | | Starting Jasmyne 03/01/15 at 0948, | | AM PDT | | | | | Until Jasmyne 03/01/15 at 1204 | | | | | | + +---------+ +---+---+---+ +---------+ +---+---+---+ | New Bag | 03/01/20 | | | | | | 15 9:48 | | | | | | AM PDT | | | | +---------+ +---+---+---+ +---+---+ | | | +---+---+ + +-------+ +-------+---+---+ | lidocaine PF (XYLOCAINE MPF) 20 | Given | 03/01/20 | 80 mg | | | | mg/mL (2 %) injection | | 15 10:13 | | | | | INTRAPROCEDURE PRN, Starting Jasmyne | | AM PDT | | | | | 03/01/15 at 1013, Until Jasmyne 03/01/15 | | | | | | | at 1204 | | | | | | + +-------+ +-------+---+---+ +---+---+ | | | +---+---+ + +-------+ +------+---+---+ | midazolam (VERSED) injection | Given | 03/01/20 | 2 mg | | | | INTRAPROCEDURE PRN, Starting Jasmyne | | 15 9:51 | | | | | 03/01/15 at 0951, Until Jasmyne 03/01/15 | | AM PDT | | | | | at 1204, sedation | | | | | | + +-------+ +------+---+---+ +---+---+ | | | +---+---+ + +-------+ +------+---+---+ | neostigmine (PROSTIGMIN) | Given | 03/01/20 | 2 mg | | | | injection intravenous, | | 15 11:46 | | | | | INTRAPROCEDURE PRN, Starting Jasmyne | | AM PDT | | | | | 03/01/15 at 1146, Until Jasmyne 03/01/15 | | | | | | | at 1204 | | | | | | + +-------+ +------+---+---+ +---+---+ | | | +---+---+ + +-------+ +------+---+---+ | ondansetron (ZOFRAN) injection | Given | 03/01/20 | 4 mg | | | | INTRAPROCEDURE PRN, Starting Jasmyne | | 15 11:37 | | | | | 03/01/15 at 1137, Until Jasmyne 03/01/15 | | AM PDT | | | | | at 1204 | | | | | | + +-------+ +------+---+---+ +---+---+ | | | +---+---+ + +-------+ +---------+---+---+ | PHENYLEPHrine 100mcg/mL IV | Given | 03/01/20 | 200 mcg | | | | syringe INTRAPROCEDURE PRN, | | 15 11:20 | | | | | Starting Jasmyne 03/01/15 at 1030, | | AM PDT | | | | | Until Jasmyne 03/01/15 at 1204 | | | | | | + +-------+ +---------+---+---+ +-------+ +---------+---+---+ | Given | 03/01/20 | 200 mcg | | | | | 15 11:05 | | | | | | AM PDT | | | | +-------+ +---------+---+---+ | Given | 03/01/20 | 300 mcg | | | | | 15 10:54 | | | | | | AM PDT | | | | +-------+ +---------+---+---+ +---+---+ | | | +---+---+ + +-------+ +-------+---+---+ | propofol INTRAPROCEDURE PRN, | Given | 03/01/20 | 50 mg | | | | Starting Jasmyne 03/01/15 at 1013, | | 15 11:51 | | | | | Until Jasmyne 03/01/15 at 1204 | | AM PDT | | | | + +-------+ +-------+---+---+ +-------+ +--------+---+---+ | Given | 03/01/20 | 200 mg | | | | | 15 10:13 | | | | | | AM PDT | | | | +-------+ +--------+---+---+ +---+---+ | | | +---+---+ + +-------+ +-------+---+---+ | rocuronium (ZEMURON) injection | Given | 03/01/20 | 20 mg | | | | INTRAPROCEDURE PRN, Starting Jasmyne | | 15 11:20 | | | | | 03/01/15 at 1021, Until Jasmyne 03/01/15 | | AM PDT | | | | | at 1204, Neuromuscular block | | | | | | + +-------+ +-------+---+---+ +-------+ +-------+---+---+ | Given | 03/01/20 | 50 mg | | | | | 15 10:21 | | | | | | AM PDT | | | | +-------+ +-------+---+---+ +---+---+ | | | +---+---+ + +-------+ +--------+---+---+ | SUCCINYLCHOLINE CHLORIDE 20 | Given | 03/01/20 | 140 mg | | | | MG/ML INJ (PROSED/RSI) | | 15 10:13 | | | | | INTRAPROCEDURE PRN, Starting Jasmyne | | AM PDT | | | | | 03/01/15 at 1013, Until Jasmyne 03/01/15 | | | | | | | at 1204, Neuromuscular block | | | | | | + +-------+ +--------+---+---+ +---+---+ | | | +---+---+ documented in this encounter"
--- OUTSIDE RECORDS SUMMARY | ~2019-05-23 | XMS | Encounter Summary ---
Demographics + + + | Address | [address] | | | [place] [address] | + + + | Home Phone [...] + + + | Author | [facility] | + + + | Organization | [facility] | + + + | Address | Unknown | + + + | Phone | Unavailable | + + + Support + + + + + | Name | Relationship | Address | Phone | + + + + + | Katalina Padilla | ECON | [address] | | | | | [place], [place] | | | | | [address] | | + + + + + | Ellie Vang | ECON | Unknown | | + + + + + Care Team Providers + +------+ + | Care Christian Science Practitioner Name | Role | Phone | + +------+ + | Fadi Goodrich DO | PCP | | + +------+ + Encounter Details +--------+ + + + + | Date | Type | Department | Care Team | Description | +--------+ + + + + | 02/09/ | Documentati | Digestive Health | Ronna Clarke, | | | 2017 | on | Center at [address] | ACNP [address] | | | | | [address] | Ave [place], [place] | | | | | Mailcode: [place] | [address] | | | | | for Health and | [phone] | | | | | [facility] 2 | | | | | | [facility] [place] | | | | | | [address] | | | | | | | [...] | | | | | [place] | | | | | | [address] | | | | | | [phone] | | | | | | | | +--------+ + + + + documented as of this encounter Visit Diagnoses Not on filedocumented in this encounter"
--- OUTSIDE RECORDS SUMMARY | ~2019-05-23 | XMS | Encounter Summary ---
Demographics + + + | Address | [address] | | | [place] [address] | + + + | Home Phone | | + + + | Preferred Language | Unknown | + + + | Marital Status | Single | + + + | Faith Affiliation | NON | + + + | Race | White | + + + | Ethnic Group | Not or | + + + Author + + + | Author | [facility] | + + + | Organization | [facility] | + + + | Address | Unknown | + + + | Phone | Unavailable | + + + Support + + + + + | Name | Relationship | Address | Phone | + + + + + | Katalina Padilla | ECON | [address] | | | | | [place], [place] | | | | | [address] | | + + + + + | Ellie Vang | ECON | Unknown | | + + + + + Care Team Providers + +------+ + | Care Director Underwriter Sales Name | Role | Phone | + [...] [facility] | | | | | | [address] | [address] | | | | | | [facility] | [facility] | | | | | | [facility] | [address] Mailcode: | | | | | | [facility] | [address] | | | | | | [place], [place] | [facility] | | | | | | [address] | [address] | | | | | | Phone: | [place], [place] | | | | | | [phone] | [address] | | | | | | | Phone: | | | | | | | [phone] | | | | | | | Fax: | | | | | | | [phone] | +--------+--------+ + + + + Encounter Details +--------+---------+ + + + | Date | Type | Department | Care Team | Description | +--------+---------+ + + + | 03/06/ | Office | Trauma Emergency | Pradip Starr MD | Cholecystitis | | 2013 | Visit | General Surgery at | [address] | (Primary Dx) | | | | [facility] [address] | [place] [place], | | | | | [address] | [place] [address] | | | | | Mailcode: [address] | [phone] | | | | | [facility] | | | | | | [address] [place], [place] | | | | | | [address] | | | | | | [phone] | | | +--------+---------+ + + + [...] Axel Gonzales MD - 03/06/2014 [facility] Attending: Tam Starr MD Author: Axel Gonzales MD Date: 03/06/2014 ID: Elzbieta Cristina is a 39 y.o. female [...] a HIDA scan to be done in [place] to verify that she does not have [...] Surgery Resident Department of General Surgery Pager: [phone] I saw and evaluated the patient. I agree with the findings and the plan of care as dequan han in the resident s note. PRADIP STARR MD TRAUMA EMERGENCY GENERAL SURGERY AT [facility] [address] [facility] Mailcode: [address] [place] [address] documented in this encoun ter [...] | | 2018 | Visit | | [address] | | | | | | [place], [place] | | | | | | [address] | | | | | | [phone] | | | | | | | [...] | + + + + + | [facility] | [address] | [place] [address] | | | SERVICES, CORE | [address] | | | + + + + + documented in this encounter Visit Diagnoses + + | Diagnosis | + + | Cholecystitis - Primary Cholecystitis, unspecified | + + documented in this encounter
--- OUTSIDE RECORDS SUMMARY | ~2019-05-23 | XMS | Encounter Summary ---
Demographics + + + | Address | [address] | | | [place] [address] | + + + | Home Phone [...] | + + + + + | aKtalina Padilla | ECON | [address] | | | | | [place], [place] | | | | | [address] | | + + + + + | Ellie Vang | ECON | Unknown | | + + + + + Care Team Providers + +------+ + | Care Retail Sales Associate Seasonal Name | Role | Phone | + +------+ + | Fadi Goodrich DO | PCP | | + +------+ + Encounter Details +--------+ + + + + | Date | Type | Department | Care Team | Description | +--------+ + + + + | 02/09/ | Abstract | Digestive Health | Clinic, Surgery | | | 2016 | | [place] [address] [address] | | | | | | [address] | | | | | | Mailcode: [place] | | | | | | [facility] Health and | | | | | | [facility] [address] | | | | | | [place], [place] | | | | | | [address] | | | | | | [phone] | | | +--------+ + + + [...] | | | | | [place], [place] | | | | | | [address] | | | | | | [phone] | | | | | | | | +--------+ + + + + documented as of this encounter Visit Diagnoses Not on filedocumented in this encounter"
--- OUTSIDE RECORDS SUMMARY | ~2019-05-23 | XMS | Encounter Summary ---
Demographics + + + | Address | [address] | | | [place] [address] | + + + | Home Phone [...] + | Katalina Padilla | ECON | [address] | | | | | [place], [place] | | | | | [address] | | + + + + + | Ellie Vang | ECON | Unknown | | + + + + + Care Team Providers + +------+ + | Care Mud Trucker Name | Role | Phone | + +------+ + | Fadi Goodrich DO | PCP | | + +------+ + Encounter Details +--------+ + + + + | Date | Type | Department | Care Team | Description | +--------+ + + + + | 02/22/ | Anesthesia | Preoperative | Luis Eduardo, Gay S, | | | 2018 | Event | Medicine Clinic at | DNP,ANP [address] | | | | | [facility] | [facility] | | | | | [address] | [place], [place] | | | | | Mail Code: OC8PM | [address] | | | | | [facility] | [phone] | | | | | and Healing, | | | | | | Building [address] | | | | | | [place], [place] | | | | | | [address] | | | | | | [phone] | | | +--------+ + + + [...] | | | | | [place] | | | | | | [address] | | | | | | [phone] | | | | | | | | +--------+ + + + + documented as of this encounter Visit Diagnoses Not on filedocumented in this encounter"
--- OUTSIDE RECORDS SUMMARY | ~2019-05-23 | XMS | Encounter Summary ---
Demographics + + + | Address | [address] | | | [place] [address] | + + + | Home Phone [...] + | Katalina Padilla | ECON | [address] | | | | | [place], [place] | | | | | [address] | | + + + + + | Ellie Vang | ECON | Unknown | | + + + + + Care Team Providers + +------+ + | Care Engineering Librarian Name | Role | Phone | + [...] | | | | | bypass | [place], | Mailcode: | | | | | Nausea and | [place] | [address] [facility] | | | | | vomiting, | [address] | Hospital | | | | | intractabili | Phone: | [place], [place] | | | | | ty of | | [address] | | | | | vomiting not | Fax: | Phone: | | | | | specified, | [phone] | [phone] | | | | | unspecified | | Fax: | | | | | vomiting | | [phone] | | | | | type | [...] | | | | | | CONTRAST NE | | | | | | | CT SCAN OF | | | | | | | ABDOMEN | | | | | | | CONTRAST NE | | | | | | | [...] | | | | | bypass | [place], | Mailcode: | | | | | Nausea and | [place] | [address] [facility] | | | | | vomiting, | [address] | Hospital | | | | | intractabili | Phone: | [place], [place] | | | | | ty of | | [address] | | | | | vomiting not | Fax: | Phone: | | | | | specified, | [phone] | [phone] | | | | | unspecified | | Fax: | | | | | vomiting | | [phone] | | | | | type | [...] | | | | | | CONTRAST NE | | | | | | | CT SCAN OF | | | | | | | ABDOMEN | | | | | | | CONTRAST NE | | | | | | | [...] | 2019 | Encounter | Services at [facility] | [place] [address] | | | | | [address] | [place], [place] | | | | | [address] Mailcode: | [address] | | | | | [address] [facility] | [phone] | | | | | [place], [place] | | | | | | [address] | | | | | | [phone] | | | +--------+ + + + [...] | | 0 | | | | [id number] | mouth two times | | | [...] | | 2018 | Visit | | [address] | | | | | | [place], [place] | | | | | | [address] | | | | | | [phone] | | | | | | | [...]
--- OUTSIDE RECORDS SUMMARY | ~2019-05-23 | XMS | Encounter Summary ---
Demographics + + + | Address | [address] | | | [place] [address] | + + + | Home Phone [...] + | Katalina Padilla | ECON | [address] | | | | | [place], [place] | | | | | [address] | | + + + + + | Ellie Vang | ECON | Unknown | | + + + + + Care Team Providers + +------+ + | Care Scrub Technician Name | Role | Phone | + +------+ + | Fadi Goodrich DO | PCP | | + +------+ + Encounter Details +--------+ + + + + | Date | Type | Department | Care Team | Description | +--------+ + + + + | 12/29/ | Abstract | Digestive Health | Hernandez Brian, | | | 2012 | | Center at [facility] [address] | MD [address] | | | | | [address] | [facility] | | | | | Mailcode: Center | [place], [place] | | | | | [facility] and | [address] | | | | | [facility] | [phone] | | | | | [place], [place] | | | | | | [address] | | | | | | [phone] | | | +--------+ + + + [...] | [address] [facility] [place] | | | | | | [address] | | | | | | [phone] | | | | | | | | +--------+ + + + + documented as of this encounter Visit Diagnoses Not on filedocumented in this encounter"
--- OUTSIDE RECORDS SUMMARY | ~2019-05-23 | XMS | Encounter Summary ---
Demographics + + + | Address | [address] | | | [place] [address] | + + + | Home Phone [...] + | Katalina Padilla | ECON | [address] | | | | | [place], [place] | | | | | [address] | | + + + + + | Ellie Vang | ECON | Unknown | | + + + + + Care Team Providers + +------+ + | Care Hunter Name | Role | Phone | + [...] | Visit | Center at [facility] [address] | | (Primary Dx) | | | | [address] | | | | | | Mailcode: Center | | | | | | for Health and | | | | | | [facility] | | | | | | [place], [place] | | | | | | [address] | | | | | | [phone] | | | +--------+---------+ + + + [...] of Class: 2:00 until 3:00 (60 minutes [id number] with patient) OBJECTIVE: Height: Ht Readings from [...] asking questi ons or sharing information. Yes uYli Childs [address], [facility], [place] Pager# [phone] documented in this enc ounter Plan of [...] | | | | | [place], [place] | | | | | | [address] | | | | | | [phone] | | | | | | | | +--------+ + + + + documented as of this encounter Visit Diagnoses + + | Diagnosis | + + | Morbid obesity (HCC) - Primary Morbid obesity | + + documented in this encounter
--- OUTSIDE RECORDS SUMMARY | ~2019-05-23 | XMS | Encounter Summary ---
Demographics + + + | Address | [address] | | | [place] [address] | + + + | Home Phone | | + + + | Preferred Language | Unknown | + + + | Marital Status | Single | + + + | Presybeterian Affiliation | NON | + + + | Race | White | + + + | Ethnic Group | Not or | + + + Author + + + | Author | [facility] | + + + | Organization | [facility] | + + + | Address | Unknown | + + + | Phone | Unavailable | + + + Support + + + + + | Name | Relationship | Address | Phone | + + + + + | Katalina Padilla | ECON | [address] | | | | | [place], [place] | | | | | [address] | | + + + + + | Ellie Vang | ECON | Unknown | | + + + + + Care Team Providers + +------+ + | Care Environmental Emergencies Assistant Name | Role | Phone | + +------+ + | Fadi Goodrich DO | PCP | | + +------+ + Reason for Visit + + + | Reason | Comments | + + + | Medical nutrition | obesity | | therapy | | + + + Consultation (Routine) +--------+--------+ + + + + | Status | Reason | Specialty | Diagnoses / | Referred By | Referred To | | | | | Procedures | Contact | Contact | +--------+--------+ + + + + | Closed | | Nutrition | Diagnoses | Non-[facility] | Lisseth, | | | | | Morbid | Epic Dept | [facility] | | | | | obesity | | [address] | | | | | (HCC) | | [address] | | | | | Procedures | | [address] [place], | | | | | [place] | | [place] | | | | | INITIAL | | [address] | | | | | ASSESSMNT | | | | | | | X15MIN [place] | | | | | | | MNT | | | | | | | RE-ASSESSMNT | | | | | | | X15MIN | | | +--------+--------+ + + + + Encounter Details +--------+---------+ + + + | Date | Type | Department | Care Team | Description | +--------+---------+ + + + | 04/14/ | Office | Digestive Health | Olga Lidia Montanez, | Type 2 diabetes | | 2012 | Visit | Center at [facility] [address] | mellitus (HCC) | | | | [address] | [address] | (Primary Dx); Morbid | | | | Mailcode: Center | [place], [place] | obesity (HCC) | | | | for Health and | [address] | | | | | Healing, [place] [address] | | | | | | [place], [place] | | | | | | [address] | | | | | | [phone] | | | +--------+---------+ + + + [...] Weight | 174.1 kg (383 lb | 04/14/2013 2:06 PM | | | | 14.4 oz) | PDT | | + + + + + | Height | 154.9 cm (5' 1") | 04/14/2013 2:06 PM | | | | | PDT | | + + + + + | Body Mass Index | 72.54 | 04/14/2013 2:06 PM | | | | | PDT | | + + + + + documented in this encounter Patient Instructions Patient Instructions Olga Lidia Montanez RD - 04/14/2013 2:21 PM PDTNutrition appointment, -try keeping food logs online: -[email or web address] -[email or web address] -Openbuilds -Aim for 4250-0053 calories a day -Increase physical activity -try Sit & Be Fit (on OPB e/ur 6:00-6:30am or check at library) -Keep walking as able You're doing great! documented in this encounter Progress Notes Olga Lidia Montanez RD - 04/14/2013 2:06 PM PDTFormatting of this note might be different fro m the original. Referred by: Hernandez Brian MD Referred for diagnosis: obesity Visit type: Initial Documented time of visit: 2:05 until 2:39. 34 minutes face to face consult with patient. SUBJECTIVE: Is not sure why she was told to come in today. Has been on Atkins diet for pas t year - lost from 495 lbs to 383 lbs. Currently plateaued x past 3 weeks (stable). Hopes to have bariatric surgery in the future but is not currently in the bariatric program (is work ing on weight loss first). FOOD ALLERGIES: No FOOD INTOLERANCES: No LACTOSE INTOLERANCE: No Emotional eating: Yes, d/t depression & boredom. Happens "a lot." Lives w/ her mom. Has got ten counseling but she didn't find it helpful. Tends to happen in the evening, she eats unhe althy foods (does not give examples) but appropriate portions. Denies any binge eating. Weight meter changes records clerk the past year: > 100 lb wt loss on Atkins diet Energy level: not good, but improving with weight loss Physical activity: has incarcerated hernia--is very limited in what she can do d/ the pain. Tries to walk daily at least a little bit. Daily food intake provided: Yes. Used to keep food logs but hated them. Aims for ~1000 kcal /day. Used to see an RD for 2 years in [place] but insurance quit paying for it. Up at 7-9am B (30 min after waking): Atkins shake & Activia yogurt L (noon): sandwich (low-kcal bread, fat-free ham, low-kcal cheese), often w/ raw veggies S (3pm): Atkins bar or lowfat string cheese D (5-8pm): protein (chicken, steak, pork chops, etc.) & veggie (mom cooks, baked foods, no fried foods) Occ HS: low-kcal popcorn. Tends to overeat at night when having emotional eating issues - a ppropriate portions but "not good foods"; mom brings unhealthy foods home. Bed at ~11pm. Fluids: water w/ CL (100 oz/day), diet soda (24 oz/d) Eats fruit at breakfast on some days OBJECTIVE: 38 year old, female Ht Readings from Last 1 Encounters: 04/14/13 1.549 m (5' 1") Wt Readings from Last 1 Encounters: 04/14/13 174.136 kg (383 lb 14.4 oz) 10/07/12 195.5 kg (431 lb) BMI: 72.57 Weight change: 48 lb wt loss x past 6 months (11% change) Past Medical History Past Medical History Diagnosis Date Neck pain Insomnia Allergic rhinitis Hypertension Lymphedema Esophageal reflux Diverticulitis of colon Hemorrhoids UTI (urinary tract infection) DM type 2 (diabetes mellitus, type 2) Tinea corporis Osteoarthritis of knee Migraine headache TIA (transient ischemic attack) due to Bromocriptine Myalgia and myositis Bipolar disorder Depression Sleep apnea Staphylococcal infection Anemia Chronic wound infection of abdomen from 2010 Morbid obesity with body mass index of 70 and over in adult Incisional hernia, incarcerated 2013 Hernia of abdominal wall Medications: See list in Epic snap shot Medications for Diabetes: Oral and Insulin Checks CBGs a couple times a day; highest 120, no lows. Last HbA1c 5.0% Dietary Supplements: B-complex, Mag, potassium, iron, PNV Nutrition related labs to note: see results review Nutrition Diagnosis: Morbid obesity r/t emotional eating, lack of physical activity, hx of large portions/empty calories, as evidenced by BMI. DIET ASSESSMENT: Pt has made many positive changes to her diet over the past year - she is eating breakfast w/in 30 minutes of waking, then every 3-4 waking hours. She is including protein w/ all meal s & snacks and is also including fruits & vegetables during the day. Discussed ways to furth er increase fruit & vegetable intake. Discussed ways to increase physical activity--provided info on Sit & Be Fit. Encouraged keeping food logs online; discussed aiming for a higher ca shannan goal than 1000/d--a more appropriate long-term range would be 9612-8331/day. Inadequat e calcium intake; did not address but at next visit will recommend calcium supplementation. EDUCATION PROVIDED: Provided written & verbal education on mindful eating, healthy plate, & hydration. Provided info on behavior changes to make to prepare for bariatric surgery give n pt is hoping to have surgery in the future - discussed mindful eating, resources to addres s emotional eating (books, encouraged counseling), eliminating carbonation, limiting caffein e to 16 oz/d. Pt w/ questions about how to get adequate nutrients during a possible future p regnancy if she has weight loss surgery; discussed that she should not become withi n the first 2 years after surgery, then we could work out a meal plan to ensure she would ge t adequate nutrition to support a healthy . Patient's Comprehension: Receptive Stage of change: Action Barrier(s) to education: No Learning style: Patient is Visual learner/Verbal learner Information provided in writing, and used visual aids to demonstrate food portions and food products. PLAN : PATIENT GOALS: 1. Continue 3 meals & 1-2 snacks daily; include protein w/ meals & snacks 2. Aim for 4145-9865 kcal/d 3. Keep food logs (at least 1-2 days a week, particularly during a "plateau") 4. Increase physical activity; aim for 30 minutes a day. Try Sit & Be Fit (provided brochur e) 5. Add 500-600 mg calcium citrate w/ vitamin D daily 6. Consider counseling to address emotional eating 7. Begin practicing mindful eating RD phone number, office hours provided to patient. Follow up in 1-2 months or as needed. Olga Lidia Montanez RD, [place] Pager [phone] documented in this en counter Plan of [...] | | 2018 | Visit | | [address] | | | | | | [place], [place] | | | | | | [address] | | | | | | [phone] | | | | | | | | +--------+ + + + + documented as of this encounter Procedures + +--------+ + + + | Procedure Name | Priori | Date/Time | Associated Diagnosis | Comments | | | ty | | | | + +--------+ + + + | [place] MNT INITIAL | Routin | 04/14/2013 | Type 2 diabetes | | | ASSESSMNT X15MIN | e | 2:57 PM | mellitus (HCC) | | | | | PDT | Morbid obesity (HCC) | | + +--------+ + + + documented in this encounter Visit Diagnoses + + | Diagnosis | + + | Type 2 diabetes mellitus (HCC) - Primary Type II or unspecified type diabetes | | mellitus without mention of complication, not stated as uncontrolled | + + | Morbid obesity (HCC) Morbid obesity | + + documented in this encounter
--- OUTSIDE RECORDS SUMMARY | ~2019-05-23 | XMS | Encounter Summary ---
Demographics + + + | Address | [address] | | | [place] [address] | + + + | Home Phone [...] Author + + + | Author | [facility] | + + + | Organization | [facility] | + + + | Address | Unknown | + + + | Phone | Unavailable | + + + Support + + + + + | Name | Relationship | Address | Phone | + + + + + | Katalina Padilla | ECON | [address] | | | | | [place], [place] | | | | | [address] | | + + + + + | Ellie Vang | ECON | Unknown | | + + + + + Care Team Providers + +------+ + | Care Washerette Machine Operator Name | Role | Phone [...] [address] | | | | | [facility] | [facility] | | | | | [address] | [place], [place] | | | | | Mail Code: OC8PM | [address] | | | | | [facility] | [phone] | | | | | and Healing, | | | | | | [address] | | | | | | [place], [place] | | | | | | [address] | | | | | | [phone] | | | +--------+ + + + [...] | | | | [place] | | | | | | [address] | | | | | | [phone] | | | | | | | | +--------+ + + + + documented as of this encounter Visit Diagnoses Not on filedocumented in this encounter"
--- OUTSIDE RECORDS SUMMARY | ~2019-05-23 | XMS | Encounter Summary ---
Demographics + + + | Address | [address] | | | [place] [address] | + + + | Home Phone [...] + | Katalina Padilla | ECON | [address] | | | | | [place], [place] | | | | | [address] | | + + + + + | Ellie Vang | ECON | Unknown | | + + + + + Care Team Providers + +------+ + | Care Psych Rn Name | Role | Phone | + +------+ + | Fadi Goodrich DO | PCP | | + +------+ + Encounter Details +--------+---------+ + + + | Date | Type | Department | Care Team | Description | +--------+---------+ + + + | 02/22/ | Office | Preoperative | Gay Hoff, | Preop examination | | 2018 | Visit | [facility] at | DNP,ANP [address] | (Primary Dx) | | | | [facility] | [facility] [address] | | | | | [address] [place] | [place], [place] | | | | | Mail Code: OC8PM | [address] | | | | | [facility] | [phone] | | | | | and Healing, | | | | | | [address] | | | | | | [place], [place] | | | | | | [address] | | | | | | [phone] | | | +--------+---------+ + + + [...] or walk. Surgery check-in location: Admitting - [facility], ninth floor lobby Surgery Check in Time: [...] it is after office hours, call the [facility] pen or pencil assembly machine operator at [phone] and ask them to page him or [...] NOTE Author: Gay Hoff DNP,ANP Referring Physician: Ino Pandey MD Primary Care Provider: Fadi Goodrich [...] d function per TTE ( 02/16/2017) from [facility] [employer]: Improved and stable. T2DM - controlled with [...] renal failure no electrolyte abnormalities no dialysis Urology/Fitness Club Manager: Within Defined Limits except as noted below [...] mg by mouth two times daily. CALCIUM [id number] ORAL Take 2 tablets by mouth two [...] of 70 and over in adult ([facility]) Myalgia and myositis Nausea Neck pain Numbness Osteoarthritis of knee Palpitations Pneumonia Shortness of breath Staphylococcal infection Stroke ([facility]) TIA (transient ischemic attack) due to Bromocriptine [...] Dr. Andie Brian Incisional hernia repair 03/01/2015 [facility]/ Dr. Cantu. Primary fascial closure and [...] 98ms, QTC 460ms, TTE ( 02/16/2017) - [facility] 1. Overall left ventricular systolic function is normal with, an EF between 60 - 65 %. 2. The right ventricle is normal in size and function. 3. No significant valvular abnormalities are noted. 4. In comparison to the previous (technically difficult) echocardiographic study done 01/01, no signfiicant changes are noted. TTE (02/17/2016) - [facility] Conclusions 1. There is normal left ventricular [...] and resp iratory change. TTE (11/07/2015) - [facility] Final Impressions: 1. The interpretation of [...] d function per TTE ( 02/16/2017) form [facility]. Improved and stable. - Confirmed with Dr. [...] Advised to bring her own apparatus for [facility]. GERD - On omeprazole. Chronic Fluid retention [...] to this patient's care. Gay Hoff, ERENDIRA,ANP [facility] 4TH FLOOR [address] [facility] [address] I spent time (45 minutes, [...] | | 2019 | Visit | | [address] | | | | | | [place], [place] | | | | | | [address] | | | | | | [phone] | | | | | | | | +--------+ + + + + + + +--------+ + + | Name | Type | Priori | Associated Diagnoses | Order Schedule | | | | ty | | | + + +--------+ + + | COMMUNICATION TO [facility] | Procedures | Routin | Preop examination | Ordered: 02/22/2018 | | LAB DRAW | | e | | | + + +--------+ + + documented as of this encounter Procedures + +--------+ + + + | Procedure Name | Priori | Date/Time | Associated Diagnosis | Comments | | | ty | | | | + +--------+ + + + | [facility] COLLECTION VENOUS | Routin | 02/22/2018 | [...] effect January 07, | [facility] | | 2017. New reference ranges for MCV, MCHC, PLT, [...] [facility] | [address] | [place] [address] | | | SERVICES, CORE | [address] [...] + | [facility] | [address] | [place] [address] | | | SERVICES, | [address] [...] [facility] | [address] | [place] [address] | | | SERVICES, | [address] [...] | [facility] | | considered for monitoring long goods drier glycemic control in patients with: | LABORATORY [...] + + | [facility] | [address] | [place] [address] | | | SERVICES, SPECIAL | PARK [...] | | | LABORATORY | | | JORDANIAN | | | SERVICES, | | | [...] | + + + + + | [facility] | [address] | [place] [address] | | | SERVICES, CORE | [address] | | | + + + + + 12 LEAD ECG (02/22/2018 1:18 PM PDT) + + + + + + | Component | Value | Ref Range | Performed | Pathologist | | | | | At | Signature | + + + + + + | VENTRICULAR | 110 | bpm | [facility] | | | RATE | | [...] + | [facility] | [address] | [place], [place] | | | CARDIOLOGY | [address] | [address] | | + + + + + documented in this encounter Visit Diagnoses + + | Diagnosis | + + | Preop examination - Primary Preoperative examination, unspecified | + + documented in this encounter
--- OUTSIDE RECORDS SUMMARY | ~2019-05-23 | XMS | Encounter Summary ---
Demographics + + + | Address | [address] | | | [place] [address] | + + + | Home Phone [...] + | Katalina Padilla | ECON | [address] | | | | | [place], [place] | | | | | [address] | | + + + + + | Ellie Vang | ECON | Unknown | | + + + + + Care Team Providers + +------+ + | Care Pre Sales Systems Engineer Name | Role | Phone | + +------+ + | Fadi Goodrich DO | PCP | | + +------+ + Encounter Details +--------+---------+ + + + | Date | Type | Department | Care Team | Description | +--------+---------+ + + + | 12/26/ | Office | Digestive Health | Rossana Espinoza, | Morbid obesity (HCC) | | 2015 | Visit | Center at [facility] [address] | (Primary Dx); | | | | [address] | [address] | 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Mailcode: Center | [place], [place] | with insulin therapy | | | | for Health and | [address] | (HCC) | | | | [facility] [address] | [phone] | | | | | [place], [place] | | | | | | [address] | | | | | | [phone] | | | +--------+---------+ + + + [...] | 175.6 kg (387 lb 1.6 | 12/26/2014 1:32 PM | | | | oz) | PDT | | + + + + + | Height | - | - | | + + + + + | Body Mass Index | 73.14 | 10/02/2014 11:03 AM | | | | | PDT | | + + + + + documented in this encounter Progress Notes Rossana Espinoza RD - 12/26/2014 1:33 PM PDTFormatting of this note might be different fro m the original. Referring Provider: Fadi Goodrich DO Outpatient [facility], Pre-Bariatric Surgery Visit Follow-up diet consult prior to having Frandy-En-Y gastric bypass surgery. Documented Time of Visit: 1:30 to 1:55 (25 minutes veqc-zl-dawj with patient). Pt seen tog ether with Rossana Espinoza RD (training) SUBJECTIVE: Working with RN to get access to One Touch EMR water exercises. States she was down to 374lbs by following LRD but with complications (n/v, fainting) - need to obtain records from PCP [facility]. Food Allergies: No Current Physical Activity: Nothing - plans to start swimming this week Diet Recall Cicero (100kcal) + Activia Light - 60kcal Atkins Veggie Pizza (320kcal) or club crackers (120kcal per 8 crackers) + 4 small slices of cheese Snack: 3pm - Special K granola bars Dinner: meat (chicken, pork, beef) + veggie (not corn or peas) Beverages: water, flavored water crystal light, 1 cup decaf coffee + creamer 35kcal OBJECTIVE: Height: Ht Readings from Last 1 Encounters: 10/02/14 1.549 m (5' 1") Weight: Wt Readings from Last 2 Encounters: 12/26/14 175.587 kg (387 lb 1.6 oz) 11/06/14 173.818 kg (383 lb 3.2 oz) 10/02/14 175.587 kg (387 lb 1.6 oz) 08/28/14 181.439 kg (400 lb) 04/14/13 174.136 kg (383 lb 14.4 oz) 10/07/12 195.5 kg (431 lb) BMI: Body mass index is 73.18 kg/(m^2). Weight change since last nutrition appointment: gained 4lbs Past Medical History: Past Medical History Diagnosis [...] in Epic snap shot Medications for Diabetes: Insulin Dietary Supplements: not addressed during this visit. Labs: see Results Review for current labs (if available). Nutrition Diagnosis: Morbid Obesity as evidenced by BMI of 73.2. Pre-Surgery Diet: Provided written diet suggestions to help patient lose weight before surgery. Provided written meal plan: 1/2 cup oatmeal or 1 slice toast + 1 egg for breakfast. 1/2 cup fruit or 4-5 whole grain crackers as an alternative to club crackers for lunch + add non-st archy veggies (provided list). Snack: Activia light, Dinner: lean meat + non-starchy veggies + 1/2 cup carbohydrate (provided list of good carbohydrate choices + appropriate serving si zes) Discussed behavior changes to practice before surgery to prepare for surgery. Continue to pursue swimming for activity Written Education Provided/Reviewed: Reviewed the bariatric surgery notebook with the patient, including post-surgery diet progr ession, sample menus, food items, and vitamin and mineral supplements needed after surgery. Emphasized the importance of a regular physical activity program of 30-60 minutes per day to maintain weight loss post-surgery. Patient's Comprehension: The patient is: Receptive Stage of change: Action Barrier(s) to education: Yes, needs very simple instruction and will benefit from con tinued reinforcement. Will f/u with pt's RN case manage to discuss education provided today. Learning style: Patient is a Visual learner, Verbal learner Expected Outcome: I think the patient will do moderately if following all lifestyle and be havioral changes discussed today. Elzbieta continues to struggle to lose weight to qualify for bariatric surgery. She appears to be making her best effort to reduce intake and follow iplar mmended diet. She reports frustration because she is getting conflicting diet recommendation s from providers involved in her care. We discussed today how we are all trying to figure ou t the best and safest plan for her to meet her weight loss goals. Elzbieta verbalized understan ding. I am hopeful that the addition of water based exercise to her routine will help her ac hieve her weight loss goal. GOAL: The patient's goal is to have weight loss surgery to maintain weight loss and improve other health conditions. 1. Continue to practice behavioral changes to prepare for surgery. 2. Increase physical activity. 3. Review all information provided for post-surgery diet progression. 4. Call or send WeFi message to dietitian with any questions. Contact information was provided. Follow up with dietitian via telephone 1 week after beginning water exercises for weight ch addie. Yuli Childs RD, [facility], LD Pager# [phone] Rossana Espinoza MS, RD Pgr #[id number] documented in this enco unter Plan of [...] | | | | | [place], [place] | | | | | | [address] | | | | | | [phone] | | | | | | | | +--------+ + + + + documented as of this encounter Procedures + +--------+ + + + | Procedure Name | Priori | Date/Time | Associated Diagnosis | Comments | | | ty | | | | + +--------+ + + + | [place] MNT RE-ASSESSMNT | Routin | 12/27/2014 | Morbid obesity | | | X15MIN | e | 8:17 AM | (HCC) Diabetes | | | | | PDT | mellitus with | | | | | | insulin therapy | | | | | | (HCC) | | + +--------+ + + + documented in this encounter Visit Diagnoses + + | Diagnosis | + + | Morbid obesity (HCC) - Primary Morbid obesity | + + | Diabetes mellitus with insulin therapy (HCC) | + + documented in this encounter
--- OUTSIDE RECORDS SUMMARY | ~2019-05-23 | XMS | Encounter Summary ---
Demographics + + + | Address | [address] | | | [place] [address] | + + + | Home Phone [...] + | Katalina Padilla | ECON | [address] | | | | | [place], [place] | | | | | [address] | | + + + + + | Ellie Vang | ECON | Unknown | | + + + + + Care Team Providers + +------+ + | Care Butcher Assistant Name | Role | Phone | [...] | +--------+ + + + + | 04/26/ | Telephone | Cardiology | Randell Franks, | Refill Request | | 2014 | | Preventive at [facility] | MD [address] | | | | | [address] | [place] [facility] [place] | | | | | Mailcode: [facility] | [address] | | | | | [facility] | [phone] | | | | | and [address] | | | | | | [address] | | | | | | [facility] [place] | | | | | | [address] | | | | | | [phone] | | | +--------+ + + + [...] | | | | | [place] | | | | | | [address] | | | | | | [phone] | | | | | | | | +--------+ + + + + documented as of this encounter Visit Diagnoses Not on filedocumented in this encounter"
--- OUTSIDE RECORDS SUMMARY | ~2019-05-23 | XMS | Encounter Summary ---
Demographics + + + | Address | [address] | | | [place] [address] | + + + | Home Phone [...] [place], [place] | | | | | [address] | | + + + + + | Ellie Vang | ECON | Unknown | | + + + + + Care Team Providers + +------+ + | Care Electricity Trading Analyst Name | Role | Phone | + +------+ + | Kenyatta Cardenas MD | PCP | | + +------+ + Encounter Details +--------+ + + + + | Date | Type | Department | Care Team | Description | +--------+ + + + + | 05/14/ | Pharmacy | Outpatient Retail | | | | 2019 | Visit | [facility] | | | | | | [address] | | | | | | [place] | | | | | | [place] [address] | | | +--------+ + + + [...] | | | | | [place] | | | | | | [address] | | | | | | [phone] | | | | | | | | +--------+ + + + + documented as of this encounter Visit Diagnoses Not on filedocumented in this encounter"
--- OUTSIDE RECORDS SUMMARY | ~2019-05-23 | XMS | Encounter Summary ---
Demographics + + + | Address | [address] | | | [place] [address] | + + + | Home Phone [...] + | Katalina Padilla | ECON | [address] | | | | | [place], [place] | | | | | [address] | | + + + + + | Ellie Vang | ECON | Unknown | | + + + + + Care Team Providers + +------+ + | Care V Belt Coverer Name | Role | Phone | + [...] | [facility] | | | with TORCH BRAZER | | hypertension | [address] | | | | | Right | [address] | [address] | | | | | heart | [place], [place] | Mailcode: | | | | | failure | [address] | Center for | | | | | ([facility]) Type | Phone: | Health and | | | | | 2 diabetes | [phone] | Healing, | | | | | mellitus | Fax: | Building [address] | | | | | without | [phone] | [place], [place] | | | | | complication | | [address] | | | | | , with | | Phone: | | | | | long-term | | | | | | | current use | | Fax: | | | | | of insulin | | [phone] | | | | | ([facility]) | | | | | [...] 2019 | Visit | Center at [facility] [address] | DIRECTOR FACILITIES MAINTENANCE [address] | gastric bypass | | | | [address] | [place], [place] | (Primary Dx); | | | | Mailcode: [place] | [address] | Intertriginous | | | | for Health and | [phone] | candidiasis | | | | [facility] | | | | | | [place], [place] | | | | | | [address] | | | | | | [phone] | | | +--------+---------+ + + + [...] Has a new PCP, Dr. Cardenas in [facility]. Bariatric Measures: Activity: walking 1.5-2 miles daily [...] index of 70 and over in adult ([facility]) Myalgia and myositis Nausea Neck pain Numbness Osteoarthritis of knee Palpitations Pneumonia Shortness of breath Staphylococcal infection Stroke ([facility]) TIA (transient ischemic attack) due to Bromocriptine Tinea corporis UTI (urinary tract infection) Past Surgical History Procedure Laterality Date Tonsillectomy and adenoidectomy Appendectomy, open 2010 Umbilical hernia repair 2010 Treatment of ankle fracture with screws remaining Incision and drainage of wound abscess x2 midline transverse wound s/p open appendectomy 2010 Ventral hernia repair 10/2012 Dr. Andie Brian Incisional hernia repair 03/01/2015 [facility]/ Dr. Cantu. Primary fascial closure and scar excision Lap gastric byp, and nilesh-en-y gastroenterostomy w/ nilesh limb 150 cm or less 8 [facility] Social History Social [...] History Narrative Updated 11/09/15 She lives in [place] with her mother and her sister (also her caregiver) lives in an apa rtment/duplex below. She has 2 grandchildren (age 4 and 7) who live with her daughter and son-in-law Her boyfriend lives in [place] HFpEF, DM2, HTN, Sleep Apnea (unable to [...] program here and refer her to our member service specialist who also has expertise in physical [...] tongue once daily., Disp: , Rfl: CALCIUM [id number] ORAL, Take 2 tablets by mouth two [...] n/a -HTN: still on medications -Diabetes: seeing bird keeper in December, hopes to eliminate Metformin then as recent A1c was normal Return to bariatric clinic in 6 months for 1 year follow up visit See your primary care provider for adjusting any other medications. Call if any abdominal pain, n/v/d or other issues. Pt agrees to plan and will call and/or send [employer] message if any issues. Start time 2:45, end time 3:10. I spent a total of 25 minutes face to face with this patie nt. Over 50% of visit was in counseling. HILDA Davalos Bariatric Surgery Nurse Practitioner [facility] | [address] | [place], [place] | [address] | documented in this encounter Plan of [...] [place] | | | | | | [address] | | | | | | [phone] | | | | | | | [...] [facility] | [address] | [place] [address] | | | SERVICES, CORE | PARK [...] | + + + + + | [facility] | [address] | [place] [address] | | | SERVICES, CORE | CLARENCE [...] INTFC | | | | determined by [employer] | | | | | | Laboratories. See | | | | | | Compliance Statement B: | | | | | | [employer]/CSPerformed | | | | | | by [employer],[address] | | | | | | [place], [place] | | | | | | [address] | | | | | | [phone].MyFitnessPaluplab. | | | | | | Ismael [...] [facility] | [address] | [place], [place] | | | UNIV PTH - INTFC | | [address] | | + + + + + [...] | | | | | determined by [facility] | | | | | | Laboratories. See | | | | | | Compliance Statement B: | | | | | | [employer]/CSPerformed | | | | | | by [address],[address] | | | | | | [facility] | | | | | | [address] | | | | | | [phone].[employer]. | | | | | | [facility], Ismael Willis MD, | | | | [...] [facility] | [address] | [place], [place] | | | UNIV PTH - INTFC | | [address] | | + + + + + [...] [facility] | | | (YEN NOAH) | [facility] Laboratories,[address] | | REG UNIV | | | SERUM | Liliana Martinez, [facility] [place] | | PTH - INTFC | | | | [address] | | | | | | [phone].arlab. | | | | | | [employer], Ismael Willis MD, | | | | | | Lab. Director | | | | + + + + + + | VITAMIN E | 9.3Comment: Test | 5.5 - 18.0 mg/L | [facility] | | | (ALPHA | developed and | | REG UNIV | | | NOAH), SERUM | characteristics | | PTH - INTFC | | | | determined by [facility] | | | | | | Laboratories. See | | | | | | Compliance Statement B: | | | | | | [employer]/CS | | | | + + + + + + + + | Specimen | + + | Blood - Blood | | (substance) | + + + + + + + | Performing | Address | City/State/Zipcode | Phone Number | | Organization | | | | + + + + + | [facility] | [address] | [place], [place] | | | UNIV PTH - INTFC | | [address] | | + + + + + [...] + | [facility] | [address] | [place] [address] | | | SERVICES, CORE | PARK [...] | + + + + + | [facility] | [address] [facility] | [place] [address] | | | SERVICES, CORE | CLARENCE [...] | | | | | determined by [employer] | | | | | | Laboratories. See | | | | | | Compliance Statement B: | | | | | | [employer]/CSPerformed | | | | | | by 2[employer],[address] | | | | | | Liliana Martinez, [facility] [place] | | | | | | [address] | | | | | | [phone].[employer]. | | | | | | National BananaIsmael MD, | | | | | | [...] [facility] | [address] | [place], [place] | | | UNIV PTH - INTFC | | [address] | | + + + + + [...] [facility] | [address] | [place] [address] | | | SERVICES, CORE | PARK [...] | | | | | determined by [facility] | | | | | | Laboratories. See | | | | | | Compliance Statement B: | | | | | | [employer]/CSPerformed | | | | | | by 2[employer],[address] | | | | | | Liliana Martinez [facility] [place] | | | | | | [address] | | | | | | [phone].[employer]. | | | | | | Ismael [...] [facility] | [address] | [place], [place] | | | UNIV PTH - INTFC | | [address] | | + + + + + [...] [facility] | [address] | [place] [address] | | | SERVICES, CORE | PARK [...] [facility] | [address] | [place] [address] | | | SERVICES, SPECIAL | CLARENCE [...] | + + + + + | [facility] | [address] | [place] [address] | | | SERVICES, CORE | CLARENCE [...] at | | | | | | www.[employer].National Banana/csPerfor | | | | | | med by [facility] | | | | | | [facility],[address] [facility] | | | | | | [place] [address] | | | | | | [phone].[employer]. | | | | | | encompass healthIsmael MD, | | | | | | [...] [facility] | [address] | [place], [place] | | | UNIV PTH - INTFC | | [address] | | + + + + + [...] | | | LABORATORY | | | [facility] | | | SERVICES, | | | [...] the MDRD equation recommended by the | [facility] | | National Kidney Disease Education Program. [...] [facility] | [address] | [place] [address] | | | SERVICES, CORE | CLARENCE [...]
--- OUTSIDE RECORDS SUMMARY | ~2019-05-23 | XMS | Encounter Summary ---
Demographics + + + | Address | [address] | | | [place] [address] | + + + | Home Phone [...] [place], [place] | | | | | [address] | | + + + + + | Ellie Vang | ECON | Unknown | | + + + + + Care Team Providers + +------+ + | Care Blurb Writer Name | Role | Phone | [...] at | MD [address] | incisional hernia | | | | [facility] [address] | [address] | (Primary Dx) | | | | [address] | [place], [place] | | | | | Mailcode: [id number] | [address] | | | | | [facility] | [phone] | | | | | [address] [place], [place] | | | | | | [address] | | | | | | [phone] | | | +--------+---------+ + + + [...] + + documented in this encounter Progress Danny Chance MD - 04/09/2015 1:05 PM PDTFormatting of [...] Dr. Andie Brian Incisional hernia repair 02/2015 [facility]/ Dr. Cantu PHYSICAL EXAMINATION: BP 133/63 | [...] SCHAEFFER MD TRA[facility] EMERG[facility]Y GENERAL SURGERY AT [facility] [address] [facility] Mailcode: [address] [place] [address] documented in this encounter Plan [...] [place] | | | | | | [address] | | | | | | [phone] | | | | | | | | +--------+ + + + + documented as of this encounter Visit Diagnoses + + | Diagnosis | + + | Incarcerated incisional hernia - Primary Incisional hernia with obstruction | + + documented in this encounter"
--- OUTSIDE RECORDS SUMMARY | ~2019-05-23 | XMS | Encounter Summary ---
Demographics + + + | Address | [address] | | | [place] [address] | + + + | Home Phone [...] + | Katalina Padilla | ECON | [address] | | | | | [place], [place] | | | | | [address] | | + + + + + | Ellie Vang | ECON | Unknown | | + + + + + Care Team Providers + +------+ + | Care District Agent Name | Role | Phone | [...] | +--------+ + + + + | 04/17/ | Telephone | [facility] | Kathy Feldman, | Other | | 2013 | | Center at [facility] [address] | UPSETTING MACHINE OPERATOR [address] | | | | | [address] | [facility] [address] | | | | | Mailcode: Center | [place], [place] | | | | | for Health and | [address] | | | | | [facility] [address] | [phone] | | | | | [place], [place] | | | | | | [address] | | | | | | [phone] | | | +--------+ + + + [...] | | | | | [place], [place] | | | | | | [address] | | | | | | [phone] | | | | | | | | +--------+ + + + + documented as of this encounter Visit Diagnoses Not on filedocumented in this encounter"
--- OUTSIDE RECORDS SUMMARY | ~2019-05-23 | XMS | Encounter Summary ---
Demographics + + + | Address | [address] | | | [place] [address] | + + + | Home Phone [...] + | Katalina Padilla | ECON | [address] | | | | | [place], [place] | | | | | [address] | | + + + + + | Ellie Vang | ECON | Unknown | | + + + + + Care Team Providers + +------+ + | Care Hat Block Maker Name | Role | Phone | [...] [address] | | | | | Nilesh-en-Y | AGACNP [address] | Herminio Davis | | | | | gastric | [address] | [address] | | | | | bypass | [place], | Mailcode: | | | | | Nausea and | [place] | [address] [facility] | | | | | vomiting, | [phone] | Hospital | | | | | intractabili | Phone: | [place], [place] | | | | | ty of | | [address] | | | | | vomiting not | Fax: | Phone: | | | | | specified, | [phone] | [phone] | | | | | unspecified | | Fax: | | | | | vomiting | | [phone] | | | | | type | [...] | | | | | | CONTRAST TX | | | | | | | CT SCAN OF | | | | | | | ABDOMEN | | | | | | | CONTRAST TX | | | | | | | CT | | | | | | | ABDOMEN&PELV | | | | | | | IS | | | | | | | W/CONTRAST | | | +--------+--------+ + + + + Consultation (Routine) + +--------+ + + + + | Status | Reason | Specialty | Diagnoses / | Referred By | Referred To | | | | | Procedures | Contact | Contact | + +--------+ + + + + | Pending | | Plastic | Diagnoses | Welshans, | Pls | | Review | | Surgery | History of | Keren W, | Gen/Recon | | | | | Nilesh-en-Y | AGACNP [address] | [address] | | | | | gastric | [address] | [address] | | | | | bypass | [place], | Mailcode: | | | | | Nausea and | [place] | [facility] | | | | | vomiting, | [phone] | for Health | | | | | intractabili | Phone: | and Healing, | | | | | ty of | [phone] | Building [address], | | | | | vomiting not | Fax: | 5th Floor | | | | | specified, | [phone] | [place], [place] | | | | | unspecified | | [address] | | | | | vomiting | | Phone: | | | | | type | | [phone] | | | | | Diarrhea, | | | | | | | unspecified | | | | | | | type Excess | | | | | | | skin of | | | | | | | abdomen | | | | | | | Procedures | | | | | | | CONSULT TO | | | | | | | SURGERY - | | | | | | | PLASTICS | | | + +--------+ + + + + PROC - Dept/Practice Procedure (Urgent) +--------+--------+ + + + + | Status | Reason | Specialty | Diagnoses / | Referred By | Referred To | | | | | Procedures | Contact | Contact | +--------+--------+ + + + + | Closed | | Gastroenterol | Diagnoses | Welshans, | Gas Endo | | | | ogy | History of | Keren W, | [address] | | | | | Nilesh-en-Y | AGACNP [address] | [address] | | | | | gastric | [address] | Mailcode: | | | | | bypass | [place], | [address] | | | | | Nausea and | [place] | for Health | | | | | vomiting, | [phone] | and Healing, | | | | | intractabili | Phone: | Building 2 | | | | | ty of | | [place], [place] | | | | | vomiting not | Fax: | [address] | | | | | specified, | [phone] | Phone: | | | | | unspecified | | [phone] | | | | | vomiting | | Fax: | | | | | type | | [phone] | | | | | Diarrhea, | [...] | | | | | | | [place] UPPER GI | | | | | | | ENDOSCOPY,BI | | | | | | | OPSY | | | +--------+--------+ + + + + Reason for Visit Office Visit - E/M Services (Routine) + [...] | [facility] | | | with OPTIMIZATION MANAGER | | hypertension | [address] | [address] | | | | | Right | [address] | [address] | | | | | heart | [facility] [place] | Mailcode: | | | | | failure | [address] | Center for | | | | | ([facility]) Type | Phone: | Health and | | | | | 2 diabetes | [phone] | Healing, | | | | | mellitus | Fax: | Building 2 | | | | | without | [phone] | [facility] [place] | | | | | complication | | [address] | | | | | , with | | Phone: | | | | | long-term | | | | | | | current use | | Fax: | | | | | of insulin | | [phone] | | | | | ([facility]) | | | | | | | [...] +--------+---------+ + + + | 03/01/ | Office | Dig[facility]ive [facility] | Keren Allen, | History of Nilesh-en-Y | | 2019 | Visit | Center at [facility] [address] | AGACNP [address] | gastric bypass | | | | [address] | Ave [place], [place] | (Primary Dx); Nausea | | | | Mailcode: Center | [address] | and vomiting, | | | | for Health and | | intractability of | | | | Healing, [address] | | vomiting not | | | | [place], [place] | | specified, | | | | [address] | | unspecified vomiting | | | | [phone] | | type; Diarrhea, | | | | | | unspecified type; | | | | | | Inadequate oral | | | | | | intake; Dehydration | +--------+---------+ + + + Social History [...] + + + | Blood Pressure | 116/76 | 03/01/2019 1:45 PM | | | | | PDT | | + + + + + | Pulse | 99 | 03/01/2019 1:45 PM | | | | | PDT | | + + + + + | Temperature | - | - | | + + + + + | Respiratory Rate | 16 | 03/01/2019 1:45 PM | | | | | PDT | | + + + + + | Oxygen Saturation | - | - | | + + + + + | Inhaled Oxygen | - | - | | | Concentration | | | | + + + + + | Weight | 122.9 kg (271 lb) | 03/01/2019 1:45 PM | | | | | PDT | | + + + + + | Height | 149.9 cm (4' 11") | 03/01/2019 1:45 PM | | | | | PDT | | + + + + + | Body Mass Index | 54.74 | 03/01/2019 1:45 PM | | | | | PDT [...] of this encounter Patient Instructions Patient Instructions Keren Allen AGACNP - 03/01/2019 1:50 PM PDT-schedule Upper GI, CT scan, and endoscopy -labs today -will follow up with you about getting fluids at a local clinic in [place] -I will contact you if further testing is indicated -follow up with once of our surgeons once testing is complete -get some protein de la o--isopure or premier protein de la o. documented in this encounter Progress Notes Melissa Garay RN - 03/01/2019 1:50 PM PDTSpoke with patient's PCP office [phone] and notified them that Infusion unit at [facility] (fax [phone]) requires a provider with privileges there to sign the IV infusion orders. Since Dr. Cardenas is out on maternity leave, SOFI Ulrich will check with provider covering. Infusion order and chart not e faxed to PCP at [phone]. Patient notified. Charli Murillo MA - 03/01/2019 1:50 PM PDTPatient presents for blood draw per Providers order Site: LEFT A/C Time: 14:30 Patient tolerated well; ONE ATTEMPT Keren Arcos [facility] OPTIMIZATION MANAGER - 03/01/2019 1:50 PM PDT BARIATRIC SURGERY FOLLOW-UP ID: Elzbieta Cristina is a 43 y.o. patient who underwent a Nilesh en y gastric bypass on 03/01 with . The patient is now 1 year post operative and here for follow up. Subjective: She did have a stricture in May, after dilation it was improved. Unfortunately, the pa st 4 weeks she has been miserable. She does not feel well and is very weapy today. She feels nauseous constantly. She has constant abdominal pain. She feels her food goes right through her, she has diarrhea and vomiting most days. She denies dysphagia or having trouble with food getting stuck. She reports pain with every bite of food or sip of fluid she has. Reports she is getting maybe 20 ounces of water at be st most days. This has been going on consistently for the past 3 weeks. She also reports i ncreased pain in her ventral hernia site, feeling it is tender to touch. Reports diarrhea is dark green. She had her gallbladder removed in the past. She feels she can't sleep. Additionally, she is having a hard time dealing with her excess skin in her pannus. Having extreme rashes, postules. She is using gold farris in the meantime. Denies GERD, constipation Weight at time of surgery : 372--> 319-->295-->271 (total 99 lb weight loss) BP 116/76 | Pulse 99 | Resp 16 | Ht 1.499 m (4' 11") | Wt 122.9 kg (271 lb) | BMI 54.7 4 kg/m | BSA 2.26 m Bariatric Medications: MVI with iron twice daily: yes Calcium citrate 1500mg daily: yes Vitamin D 1000 mg daily : yes B12 500mcg SL daily or monthly shot: yes H2RB/PPI daily: no Actigall/ ursodiol 300 BID: no Narcotics: no Symptoms: Nausea: Multiple times per day Dysphagia: None Vomiting: Multiple times per day Heartburn: None Abd Pain: Multiple times per day Constipation: None Diarrhea: Multiple times per day History: Past Medical History: Diagnosis Date Abdominal pain Abnormal ThinPrep Pap test of vagina Allergic rhinitis Anemia Anxiety Bipolar disorder ([facility]) Chronic wound infection of abdomen from 2010 Cough Depression Diverticulitis of colon Dizziness Glaucoma Heart burn Hemorrhoids Hernia of abdominal wall Incisional hernia, incarcerated 2012 Insomnia Irregular periods Kidney stone Leaking of urine Leg sore Lymphedema Morbid obesity with body mass index of 70 and over in adult ([facility]) Myalgia and myositis Nausea Neck pain Numbness Osteoarthritis of knee Palpitations Pneumonia Shortness of breath Staphylococcal infection Stroke ([facility]) TIA (transient ischemic attack) due to Bromocriptine Tinea corporis UTI (urinary tract infection) Past Surgical History Procedure Laterality Date Tonsillectomy and adenoidectomy Appendectomy, open 2010 Umbilical hernia repair 2010 Treatment of ankle fracture with screws remaining Incision and drainage of wound abscess x2 midline transverse wound s/p open appendectomy 2010 Ventral hernia repair 10/2012 Dr. Andie Brian Incisional hernia repair 03/01/2015 [facility]/ Dr. Cantu. Primary fascial closure and scar excision Lap gastric byp, and nilesh-en-y gastroenterostomy w/ nilesh limb 150 cm or less [facility] Social History Socioeconomic History Marital status: Single [...] file Gets together: Not on file Attends mormon service: Not on file Active member of club or organization: Not on file Attends meetings of clubs or organizations: Not on file Relationship status: Not on file Other Topics Concern Not on file Social History Narrative Updated 11/09/15 She lives in [place] with her mother and her sister (also her caregiver) lives in an apa rtment/duplex below. She has 2 grandchildren (age 4 and 7) who live with her daughter and son-in-law Her boyfriend lives in [place] HFpEF, DM2, HTN, Sleep Apnea (unable to tolerate CPAP), Hypothyroidism, Severe Obesity ([facility] max weight 495 lbs) Last seen by [...] here and refer her to our cardiac care unit nurse who also has expertise in physical activity [...] Blood clots Penicillin Hives Medications Current Outpatient Medications: ascorbic acid (vitamin C) (VITAMIN C) 500 mg oral tablet, T americo 1 tablet by mouth once daily., Disp: 90 tablet, Rfl: 1 aspirin EC 81 mg oral tablet,delayed release (DR/EC), Take 81 mg by mouth once daily., Disp : , Rfl: atenolol 25 mg oral tablet, Take 50 mg by mouth once daily. , Disp: , Rfl: BELBUCA 300 mcg buccal film, , Disp: , Rfl: CALCIUM CRB&CPN-Q8-TCB37-GENIS ORAL, Take 2 tablets by mouth two times daily., Disp: , Rfl: cloNIDine HCl 0.2 mg oral tablet, Take 0.2 mg by mouth two times daily., Disp: , Rfl: CYANOCOBALAMIN (VITAMIN B-12) INJ, by injection route every thirty days., Disp: , Rfl: docusate sodium (STOOL SOFTENER ORAL), Take 200 mg by mouth. Equate brand per patient, Disp : , Rfl: ergocalciferol (VITAMIN D2) 50,000 unit oral capsule, Take 1 capsule by mouth every seven d ays., Disp: , Rfl: FA/mv,Ca,iron,min/lycopene/lut (MULTIVITAL ORAL), Take by mouth., Disp: , Rfl: Ferrous Gluconate 324 mg total salt (36 mg elemental iron) oral tablet, Take 1 tablet by mo [facility] once daily., Disp: 90 tablet, Rfl: 1 gabapentin 300 mg oral capsule, Take 300 [...] daily in the evening., Disp: , Rfl: nystatin 100,000 unit/gram topical powder, Apply to affected area two times daily. Apply to candidal lesions until lesions have healed., Disp: 30 g, Rfl: 0 PARoxetine 10 mg oral tablet, Take 40 mg by mouth once daily. , Disp: , Rfl: phentermine 37.5 mg oral tablet, Take 1 tablet by mouth once daily in the morning. Administ er before breakfast., Disp: 90 tablet, Rfl: 1 potassium chloride 20 mEq oral packet, Take 20 mEq by mouth two times daily., Disp: , Rfl: pramipexole 0.125 mg oral tablet, Take 0.125 mg by mouth., Disp: , Rfl: promethazine 25 mg oral [...] once daily., Disp: , Rf l: topiramate 50 mg oral tablet, Take 1 tablet by mouth two times daily. May increase by 1 tab twice daily every 2 weeks, as tolerated. Max dose is 2 tabs twice daily., Disp: 360 tablet , Rfl: 3 torsemide 100 mg oral tablet, Take 100 mg by mouth two times daily. Resume half dose for fi rst week post opertative, Disp: , Rfl: Physical Exam General- Alert and oriented x4, No acute distress, well appearing Well hydrated: moist mucous membranes Abd - Soft, non-tender, non-distended, lap scars well healed Assessment/Plan: Elzbieta Cristina is a 43 y.o. female who is 1 year S/P Nilesh en y gastric bypass. 1. Nausea/Diarrhea x 4 weeks S/p Nilesh en y gastric bypass. -Denies GERD, dysphagia, constipation -ordered UGI, EGD to assess for ulcer/possible stricture/hernia, etc -CT scan also ordered to assess hernias sites--concern for possible incarceration? -will also coordinate IV fluid to be administered closer to her home in [place]. LR 1-2 L 3 times weekly, until she is able to have better oral intake. -she declines taking new medication, she is off metformin. I am unclear what could be causi ng this intense diarrhea she is having. -encouraged her to buy protein de la o such as isopure/premier to at least get some type of nutrition in the interim. -on the plus side she has lost 100lbs which is great, she is proud of this 2. Intertriginous candidiasis -very intense rashes, pustules noted in her pannus region, very uncomfortable constantly fo r pt. She uses goldbond but interested in panniculectomy -consult to plastics -use corn starch to help reduce moisture -place a towel between skin folds to reduce friction and promote drying -contact us if you have further problems 3. Risk for B12 deficiency, calcium malabsorption, protein malabsorption, vitamin d deficie ncy and iron deficiencies -Labs today: prealbumin CBC, CMP, B12, PTH, vit D, ferritin will notify of results and rep lace as needed -continue with vitamin supplements as directed 4.Gastric Ulcer Prevention -off PPI, denies GERD. -will start her on PPI prophylactically to see if this improves her abdominal pain 6. Progress of Chronic Medical Conditions -AMARA: on cpap -GERD: none -Hyperlipidemia: na -HTN: on medication -Diabetes: off all DM meds Return to bariatric clinic in 1 year for continued follow up See your primary care provider for adjusting any other medications. Call if any abdominal pain, n/v/d or other issues. Pt agrees to plan and will call and/or send Cart[employer] message if any issues. Start time 1422, end time 1455. I spent a total of 33 minutes face to face with this patie nt. Over 50% of visit was in counseling. ALBINA Perrin Bariatric Surgery Nurse Practitioner [facility] | [address] | [place], [place] | [address] | documented in th is encounter Plan of [...] | | 2018 | Visit | | [address] | | | | | | [place] [facility] [place] | | | | | | [address] | | | | | | [phone] | | | | | | | | +--------+ + + + + + + +--------+ + + | Name | Type | Priori | Associated Diagnoses | Order Schedule | | | | ty | | | + + +--------+ + + | PREALBUMIN | Lab | Routin | History of | Expected: 03/01/2019 | | | | e | Nilesh-en-Y gastric | (Approximate), | | | | | bypass Nausea and | Expires: 04/01/2020 | | | | | vomiting, | | | | | | intractability of | | | | | | vomiting not | | | | | | specified, | | | | | | unspecified vomiting | | | | | | type Diarrhea, | | | | | | unspecified type | | + + +--------+ + + | ROUTINE | Procedures | Routin | History of | Ordered: 03/01/2019 | | VENIPUNCTURE, | | e | Nilesh-en-Y gastric | | | VENOUS-BACK OFFICE | | | bypass Nausea and | | | | | | vomiting, | | | | | | intractability of | | | | | | vomiting not | | | | | | specified, | | | | | | unspecified vomiting | | | | | | type Diarrhea, | | | | | | unspecified type | | + + +--------+ + + documented as of this encounter Procedures + +--------+ + + + | Procedure Name | Priori | Date/Time | Associated Diagnosis | Comments | | | ty | | | | + +--------+ + + + | CBC (HEMOGRAM) ONLY | Routin | 03/01/2019 | History of | Results for this | | | e | 2:41 PM | Nilesh-en-Y gastric | procedure are [...] | VITAMIN B1, WHOLE | Routin | 03/01/2019 | History of | Results for this | | BLOOD | e | 2:41 PM | Nilesh-en-Y gastric | procedure are [...] + + | INR | Routin | 03/01/2019 | History of | Results for this | | | e | 2:41 PM | Nilesh-en-Y gastric | procedure are [...] + | VITAMIN D, | Routin | 03/01/2019 | History of | Results for this | | 25-HYDROXY, SERUM | e | 2:41 PM | Nilesh-en-Y gastric | procedure are [...] + | ZINC, SERUM | Routin | 03/01/2019 | History of | Results for this | | | e | 2:41 PM | Nilesh-en-Y gastric | procedure are [...] | VITAMIN E, SERUM | Routin | 03/01/2019 | History of | Results for this | | | e | 2:41 PM | Nilesh-en-Y gastric | procedure are [...] | VITAMIN A, SERUM | Routin | 03/01/2019 | History of | Results for this | | | e | 2:41 PM | Nilesh-en-Y gastric | procedure are [...] + | HOMOCYSTEINE TOTAL, | Routin | 03/01/2019 | History of | Results for this | | PLASMA | e | 2:41 PM | Nilesh-en-Y gastric | procedure are [...] + | COMPLETE METABOLIC | Routin | 03/01/2019 | History of | Results for this | | SET | e | 2:41 PM | Nilesh-en-Y gastric | procedure are in the | | (NA,K,CL,CO2,BUN,CRE | | PDT | bypass Nausea and | results section. | | AT,GLUC,CA,AST,ALT,B | | | vomiting, | | | MARGIE TOTAL,ALK | | | intractability of | | | PHOS,ALB,PROT TOTAL) | | | vomiting not | | | | | | specified, | | | | | | unspecified vomiting | | | | | | type Diarrhea, | | | | | | unspecified type | | + +--------+ + + + | METHYLMALONIC ACID, | Routin | 03/01/2019 | History of | Results for this | | SERUM | e | 2:41 PM | Nilesh-en-Y gastric | procedure are [...] + | CBC ONLY | Routin | 03/01/2019 | History of | Results for this | | | e | 2:41 PM | Nilesh-en-Y gastric | procedure are [...] + + | FERRITIN | Routin | 03/01/2019 | History of | Results for this | | | e | 2:41 PM | Nilesh-en-Y gastric | procedure are [...] + | PTH, SERUM | Routin | 03/01/2019 | History of | Results for this | | | e | 2:41 PM | Nilesh-en-Y gastric | procedure are [...] + | VITAMIN B-12 | Routin | 03/01/2019 | History of | Results for this | | | e | 2:41 PM | Nilesh-en-Y gastric | procedure are [...] IRON AND TIBC, SERUM | Routin | 03/01/2019 | History of | Results for this | | | e | 2:41 PM | Nilesh-en-Y gastric | procedure are [...] + | COPPER, SERUM | Routin | 03/01/2019 | History of | Results for this | | | e | 2:41 PM | Nilesh-en-Y gastric | procedure are [...] + documented in this encounter Results X-RAY MIRIAM CASTELLON (03/22/2019 11:04 AM PDT) + + [...] Interface - 03/22/2019 1:04 PM PDT EXAM: MIRIAM CASTELLON | | HISTORY: N&V, abdominal pain post [...] | | + +---------+ + + CT ABDOMEN AND PELVIS W IV CONTRAST [...] not dilated. Postsurgical changes of a Nilesh-en-Y | | | gastric bypass procedure. Multiple [...] dilated. Postsurgical changes of a Nilesh-en-Y gastric bypass procedure. Multiple | | ventral [...] of a Nilesh-en-Y gastric bypa ss procedure. | | | [...] | | | + +---------+ + + CBC (HEMOGRAM) ONLY (03/01/2019 2:41 PM PDT) + + + + + + | Component | Value | Ref Range | Performed | Pathologist | | | | | At | Signature | + + + + + + | WHITE CELL | 11.68 (H) | 3.50 - 10.80 | [facility] | | | COUNT | | K/cu mm | LABORATORY | | | | | | SERVICES, | | | | | | CORE | | + + + + + + | RED CELL | 4.98 | 4.00 - 5.20 | [facility] | | | COUNT | | M/cu mm | LABORATORY | | | | | | SERVICES, | | | | | | CORE | | + + + + + + | HEMOGLOBIN | 14.5 | 12.0 - 16.0 | [facility] | | | | | g/dL | LABORATORY | | | | | | SERVICES, | | | | | | CORE | | + + + + + + | HEMATOCRIT | 44.1 | 36.0 - 46.0 % | [facility] | | | | | | LABORATORY | | | | | | SERVICES, | | | | | | CORE | | + + + + + + | MCV | 88.6 | 80.0 - 100.0 fL | [facility] | | | | | | LABORATORY | | | | | | SERVICES, | | | | | | CORE | | + + + + + + | MCHC | 32.9 | 32.0 - 36.0 | [facility] | | | | | g/dL | LABORATORY | | | | | | SERVICES, | | | | | | CORE | | + + + + + + | RDW SD | 43.4 | 35.1 - 46.3 fL | [facility] | | | | | | LABORATORY | | | | | | SERVICES, | | | | | | CORE | | + + + + + + | PLATELET | 328 | 150 - 400 K/cu | [facility] | | | COUNT | | mm | LABORATORY | | | | | | SERVICES, | | | | | | CORE | | + + + + + + | MPV | 10.3 | 9.7 - 12.3 fL | [facility] [...] [facility] | [address] | [place] [address] | | | SERVICES, CORE | [address] | | | + + + + + ZINC, SERUM (03/01/2019 2:41 PM PDT) + + + + + + | Component | Value | Ref Range | Performed | Pathologist | | | | | At | Signature | + + + + + + | ZINC SERUM | 75.1Comment: | 60.0 - 120.0 | [facility] | | | | INTERPRETIVE | ug/dL | REG UNIV | | | | INFORMATION: Zinc, Serum | | PTH - INTFC | | | | or Plasma Elevated | | | | | | results may be due to | | | | | | skin or | | | | | | collection-related | | | | | | contamination, including | | | | | | the use of a | | | | | | noncertified metal-free | | | | | | collection/transport | | | | | | tube. If contamination | | | | | | concerns exist due to | | | | | | elevated levels of | | | | | | serum/plasma zinc, | | | | | | confirmation with a | | | | | | second specimen | | | | | | collected in a certified | | | | | | metal-free tube is | | | | | | recommended. Circulating | | | | | | zinc concentrations are | | | | | | dependent on albumin | | | | | | status and are depressed | | | | | | with malnutrition. | | | | | | Zinc may also be | | | | | | lowered with infection, | | | | | | inflammation, stress, | | | | | | oral contraceptives, and | | | | | | . Zinc may | | | | | | be elevated with zinc | | | | [...] | | | | | determined by [facility] | | | | | | Laboratories. See | | | | | | Compliance Statement B: | | | | | | [facility].[employer]/CSPerformed | | | | | | by [employer],[address] | | | | | | [address], [facility] [place] | | | | | | [address] | | | | | | [phone].[facility]. | | | | | | [facility] centerIsmael MD, | | | | | | [...] + + | [facility] | [address] [facility] | [place], [place] | | | UNIV PTH - INTFC | | [address] | | + + + + + VITAMIN E, SERUM (03/01/2019 2:41 PM PDT) + + + + + + | Component | Value | Ref Range | Performed | Pathologist | | | | | At | Signature | + + + + + + | VITAMIN E | 1.0Comment: Performed by | 0.0 - 6.0 mg/L | [facility] | | | (YEN NOAH) | [facility],[address] | | REG UNIV | | | SERUM | [address], [facility] [place] | | PTH - INTFC | | | | [address] | | | | | | [phone]. | | | | | | Ismael guillory MD, | | | | | | Lab. Director | | | | + + + + + + | VITAMIN E | 8.2Comment: Test | 5.5 - 18.0 mg/L | [facility] | | | (ALPHA | developed and | | REG UNIV | | | NOAH), SERUM | characteristics | | PTH - INTFC | | | | determined by [facility] | | | | | | Laboratories. See | | | | | | Compliance Statement B: | | | | | | [employer] | | | | + + + + + + + + | Specimen | + + | Blood - Blood | | (substance) | + + + + + + + | Performing | Address | City/State/Zipcode | Phone Number | | Organization | | | | + + + + + | [facility] | [address] | [place], [place] | | | UNIV PTH - INTFC | | [address] | | + + + + + VITAMIN D, 25-HYDROXY, SERUM (03/01/2019 2:41 PM PDT) + +-------+ + + + | Component | Value | Ref Range | Performed | Pathologist | | | | | At | Signature | + +-------+ + + + | VITAMIN D | 49.9 | 30 - 80 ng/mL | [facility] [...] | LABORATORY | | >18years: Deficiency: <20 ng/mL | SERVICES, CORE | | Insufficiency: 20-29 ng/mL | | | Optimum Level: 30-80 ng/mL High: | | | 81-150 ng/ml Toxic: >150 ng/mL | | + + + + + + + + | Performing | Address | City/State/Zipcode | Phone Number | | Organization | | | | + + + + + | [facility] | [address] | [place] [address] | | | SERVICES, CORE | [address] | | | + + + + + VITAMIN B-12 (03/01/2019 2:41 PM PDT) + + + + + + | Component | Value | Ref Range | Performed | Pathologist | | | | | At | Signature | + + + + + + | VITAMIN B12 | 1,481 (H) | 193 - 986 pg/mL | [...] | + + + + + | [facility] | [address] | [place] [address] | | | SERVICES, CORE | [address] | | | + + + + + VITAMIN B1, WHOLE BLOOD (03/01/2019 2:41 PM PDT) + + + + + + | Component | Value | Ref Range | Performed | Pathologist | | | | | At | Signature | + + + + + + | VITAMIN B1, | 162Comment: INTERPRETIVE | 70 - 180 nmol/L | [facility] | | | WHOLE [...] | | | | | determined by [employer] | | | | | | Laboratories. See | | | | | | Compliance Statement B: | | | | | | [facility].Catapult/CSPerformed | | | | | | by [employer],[address] | | | | | | [place], [place] | | | | | | [address] | | | | | | [phone].[facility]. | | | | | | [facility] centerIsmael MD, | | | | | | [...] [facility] | [address] | [place], [place] | | | UNIV PTH - INTFC | | [address] | | + + + + + VITAMIN A, SERUM (03/01/2019 2:41 PM PDT) + + + + + [...] INTFC | | | | determined by [facility] | | | | | | Laboratories. See | | | | | | Compliance Statement B: | | | | | | [facility].Catapult/CSPerformed | | | | | | by [employer],[address] | | | | | | [place] [facility],[place] | | | | | | [address] | | | | | | [phone].[facility]. | | | | | | com, Ismael Willis MD, | | | | | | Lab. Director | | | | + + + + + + | RETINOL | 0.59 | 0.30 - 1.20 | [facility] | [...] [facility] | [address] | [place], [place] | | | UNIV PTH - INTFC | | [address] | | + + + + + PTH, SERUM (03/01/2019 2:41 PM PDT) + +---------+ + + + | Component | Value | Ref Range | Performed | Pathologist | | | | | At | Signature | + +---------+ + + + | PTH, SERUM | 176 (H) | 18 - 88 pg/mL | [...] [facility] | [address] | [place] [address] | | | SERVICES, CORE | [address] | | | + + + + + METHYLMALONIC ACID, SERUM (03/01/2019 2:41 PM PDT) + + + + + + | Component | Value | Ref Range | Performed | Pathologist | | | | | At | Signature | + + + + + + | METHYLMALON | 0.20Comment: | 0.00 - 0.40 | [facility] | [...] | | | | | determined by [employer] | | | | | | Laboratories. See | | | | | | Compliance Statement B: | | | | | | [facility].Catapult/CSPerformed | | | | | | by [employer],[address] | | | | | | [place]iana Martinez [facility],[place] | | | | | | [address] | | | | | | [phone].[facility]. | | | | | | comIsmael [...] [facility] | [address] | [place], [place] | | | UNIV PTH - INTFC | | [address] | | + + + + + IRON AND TIBC (03/01/2019 2:41 PM PDT) + +--------+ + + + | Component | Value | Ref Range | Performed | Pathologist | | | | | At | Signature | + +--------+ + + + | IRON | 63 | 30 - 160 ug/dL | [facility] | | | | | | LABORATORY | | | | | | SERVICES, | | | | | | CORE | | + +--------+ + + + | IRON BIND | 402 | 240 - 450 ug/dL | [facility] | | | CAP | | | LABORATORY | | | | | | SERVICES, | | | | | | CORE | | + +--------+ + + + | % | 16 (L) | 20 - 50 % | [...] + | [facility] | [address] | [place] [address] | | | SERVICES, CORE | [address] | | | + + + + + INR (03/01/2019 2:41 PM PDT) + +-------+ + + + | Component | Value | Ref Range | Performed | Pathologist | | | | | At | Signature | + +-------+ + + + | INR | 1.05 | 0.90 - 1.20 INR | [facility] [...] + | [facility] | [address] | [place] [address] | | | SERVICES, CORE | [address] | | | + + + + + HOMOCYSTEINE TOTAL, PLASMA (03/01/2019 2:41 PM PDT) + +-------+ + + + | Component | Value | Ref Range | Performed | Pathologist | | | | | At | Signature | + +-------+ + + + | HOMOCYSTEIN | 8.5 | 3.5 - 10.4 | [facility] | [...] | + + + + + | [facility] | [address] | [place] [address] | | | SERVICES, SPECIAL | [address] | | | | IMM + COAG | | | | + + + + + FERRITIN (03/01/2019 2:41 PM PDT) + + + + + + | Component | Value | Ref Range | Performed | Pathologist | | | | | At | Signature | + + + + + + | FERRITIN | 48 (L)Comment: Male and | 50 - 200 [...] | + + + + + | [facility] | [address] | [place] [address] | | | SERVICES, CORE | [address] | | | + + + + + COPPER, SERUM (03/01/2019 2:41 PM PDT) + + + + + + | Component | Value | Ref Range | Performed | Pathologist | | | | | At | Signature | + + + + + + | COPPER | 152.7Comment: | 80.0 - 155.0 | [facility] | | | SERUM | INTERPRETIVE | ug/dL | REG UNIV | | | | INFORMATION: Copper, | | PTH - INTFC | | | | Serum or Plasma Elevated | | | | | | results may be due to | | | | | | skin or | | | | | | collection-related | | | | | | contamination, including | | | | | | the use of a | | | | | | noncertified metal-free | | | | | | collection/transport | | | | | | tube. If contamination | | | | | | concerns exist due to | | | | | | elevated levels of | | | | | | serum/plasma copper, | | | | | | confirmation with a | | | | | | second specimen | | | | | | collected in a certified | | | | | | metal-free tube is | | | | | | recommended. Serum | | | | | | copper may be [...] | | | | | | trimester). Test | | | | | | developed and | | | | | | characteristics | | | | | | determined by [facility] | | | | | | Laboratories. See | | | | | | Compliance Statement B: | | | | | | [facility] [employer]/CSPerformed | | | | | | by [employer] [facility],[address] | | | | | | [place] | | | | | | [address] | | | | | | [phone]. | | | | | | Ismael [...] [facility] | [address] | [place], [place] | | | UNIV PTH - INTFC | | [address] | | + + + + + COMPLETE METABOLIC SET (NA,K,CL,CO2,BUN,CREAT,GLUC,CA,AST,ALT,BILI TOTAL,ALK PHOS,ALB,PROT TOTAL) (03/01/2019 2:41 PM PDT) + +---------+ + + + | Component | Value | Ref Range | Performed | Pathologist | | | | | At | Signature | + +---------+ + + + | GLUCOSE, | 94 | 70 - 99 mg/dL [...] | | | LABORATORY | | | [facility] | | | SERVICES, | | | [...] +---------+ + + + | POTASSIUM, | 3.2 (L) | 3.4 - 5.0 | [facility] [...] +---------+ + + + | CALCIUM(ALB | 9.5 | 8.6 - 10.2 | [...] +---------+ + + + | ALBUMIN, | 3.5 | 3.5 - 4.7 g/dL | [facility] | | | PLASMA | | | LABORATORY | | | (LAB) | | | SERVICES, | | | | | | CORE | | + +---------+ + + + | ALK PHOS | 170 (H) | 42 - 98 U/L | [facility] | | | | | | LABORATORY | | | | | | SERVICES, | | | | | | CORE | | + +---------+ + + + | AST(SGOT) | 19 | <=41 U/L | [facility] | | | | | | LABORATORY | | | | | | SERVICES, | | | | | | CORE | | + +---------+ + + + | ALT (SGPT) | 20 | <=60 U/L | [facility] | | | | | | LABORATORY | | | | | | SERVICES, | | | | | | CORE | | + +---------+ + + + | ANION GAP | 9 | 4 - 11 mmol/L | [facility] | | | | | | LABORATORY | | | | | | SERVICES, | | | | | | CORE | | + +---------+ + + + | ANION | 10 | 4 - 11 mmol/L [...] MDRD equation recommended by the National | [facility] | | Kidney Disease Education Program. Estimated GFR Interpretive | LABORATORY | | Information: <60 mL/min/1.73 sq m Chronic Kidney | SERVICES, CORE | | Disease <15 mL/min/1.73 sq m Kidney Failure | | | Estimated GFR greater than 60 mL/min/1.73 sq m is of limited clinical | | | value. The MDRD equation is not valid in the following situations: - | | | Patients under 18 years of age - Severe malnutrition or obesity - | | | Vegetarian diet - Rapidly changing kidney function - Amputees, | | | paraplegics, or other muscle-wasting diseases | | + + + + + + + + | Performing | Address | City/State/Zipcode | Phone Number | | Organization | | | | + + + + + | [facility] | [address] | [place] [address] | | | CLAIRE, LYDIA | [address] | | | + + + + + documented in this encounter Visit Diagnoses + + | Diagnosis | + + | History of Nilesh-en-Y gastric bypass - Primary Bariatric surgery status | + + | Nausea and vomiting, intractability of vomiting not specified, unspecified vomiting | | type | + + | Diarrhea, unspecified type | + + | Inadequate oral intake Other symptoms concerning nutrition, metabolism, and | | development | + + | Dehydration | + + documented in this encounter
--- OUTSIDE RECORDS SUMMARY | ~2019-05-23 | XMS | Encounter Summary ---
Demographics + + + | Address | [address] | | | [place] [address] | + + + | Home Phone [...] + | Katalina Padilla | ECON | [address] | | | | | [place], [place] | | | | | [address] | | + + + + + | Ellie Vang | ECON | Unknown | | + + + + + Care Team Providers + +------+ + | Care Door Paneler Name | Role | Phone | + [...] | Procedural Unit at | ACNP [address] | | | | Order | [address] | [place], [place] | | | | | [address] | [address] | | | | | Rd Mailcode: UHN83 | [phone] | | | | | [address] | | | | | | [address] [place], [place] | | | | | | [address] | | | | | | [phone] | | | +--------+ + + + [...] | | | | | [place], [place] | | | | | | [address] | | | | | | [phone] | | | | | | | | +--------+ + + + + documented as of this encounter Results RICARDO (06/23/2018 3:58 PM PST) + + | Specimen | + + | | + + + +--------- -----+ | Narrative | Roseanna d At | + +--------- -----+ | MRN: | [facility] | | [id number] Date: 06/23/2018Patient Name: Elzbieta Curtis #: | ENDOSCOP Y | | [id number] of : 1975CSN: [id number] Type: | | | AmbulatoryRoom: SORProcedure: Upper GI | | | endoscopyIndications: Nausea with vomiting, Status post | | | Qxcv-fd-MHworabkuf: KALEB MILES MD (Doctor), JOSE | | | NASIMA, Dog Behaviorist | | | (Dog Behaviorist)Referring MD: DANIELLE GARCÍAPRequestdonya | | | Provider: [...] | | | The Olympus [id number]-[id number] Gastroscope #[id number] was | | | introduced through the [...] endoscope without resistance. The | | | cmpkl-wq-ebsgsbc limb was characterized by healthy appearing | [...] Initiated On: | | | 06/23/2018 3:58 [facility] Letter to: RADHA MICHAEL DO | | | - Repeat upper endoscopy in 1-2 weeks for repeat | | | dilation if symptoms persist. | | |KALEB MILES MD | | |06/23/2018 5:17:38 PM | | |This report has been signed electronically. | | |Number of Addenda: 0 | | |Note Initiated On: 06/23/2018 3:58 PM | | | Letter to: | | | RADHA MICHAEL DO | | + +--------- -----+ + [...]
--- OUTSIDE RECORDS SUMMARY | ~2019-05-23 | XMS | Encounter Summary ---
Demographics + + + | Address | [address] | | | [place] [address] | + + + | Home Phone [...] [place], [place] | | | | | [address] | | + + + + + | Ellie Vang | ECON | Unknown | | + + + + + Care Team Providers + +------+ + | Care Crib Clerk Name | Role | Phone | + +------+ + | Fadi Goodrich DO | PCP | | + +------+ + Encounter Details +--------+ + + + + | Date | Type | Department | Care Team | Description | +--------+ + + + + | 02/10/ | Abstract | Digestive Health | Hernandez Brian, | | | 2012 | | Center at [facility] [address] | MD [address] | | | | | [address] | [facility] | | | | | Mailcode: Center | [place], [place] | | | | | [facility] and | [address] | | | | | [facility] [address] | [phone] | | | | | [place], [place] | | | | | | [address] | | | | | | [phone] | | | +--------+ + + + [...] | | | | | [place] [facility] [place] | | | | | | [address] | | | | | | [phone] | | | | | | | | +--------+ + + + + documented as of this encounter Visit Diagnoses Not on filedocumented in this encounter"
--- OUTSIDE RECORDS SUMMARY | ~2019-05-23 | XMS | Encounter Summary ---
Demographics + + + | Address | [address] | | | [place] [address] | + + + | Home Phone [...] + | Katalina Padilla | ECON | [address] | | | | | [place], [place] | | | | | [address] | | + + + + + | Ellie Vang | ECON | Unknown | | + + + + + Care Team Providers + +------+ + | Care Swimming Pool Maintenance Name | Role | Phone | + [...] | Tiny, | | | | | [place] EST | Fadi Person DO | MD Randell | | | | | PATIENT | [address] | [address] | | | | | [address] | [address] | Ave | | | | | | [place], | [place], [place] | | | | | | [place] [address] | [address] | | | | | | Phone: | Phone: | | | | | | [phone] | [phone] | | | | | | Fax: | Fax: | | | | | | [phone] | [phone] | +--------+--------+ + + + + Encounter Details +--------+---------+ + + + | Date | Type | Department | Care Team | Description | +--------+---------+ + + + | 04/03/ | Office | Cardiology | Randell Franks, | Morbid obesity (HCC) | | 2015 | Visit | Preventive at [facility] | [address] | (Primary Dx); Type | | | | [address] | Ave [place], [place] | 2 diabetes mellitus | | | | Mailcode: CH9A | [address] | without complication | | | | [facility] | [phone] | ([facility]) | | | | and [address], | | | | | | [address] | | | | | | [place], [place] | | | | | | [address] | | | | | | [phone] | | | +--------+---------+ + + + [...] 500 mg by mouth once daily. CALCIUM CRB&ECQ-R3-FEY50-GENIS ORAL Take 1 tablet by mouth two [...] documented, but if we use her last [facility] weight of 410 lbs, this would put her at 360 lbs before consideration for RYGBP. She is working with the bariatric surgery crusher plant operator to try to achieve this. She [...] visit Diet: healthy, working with Bar Surg crusher plant operator Exercise: "I walk everywhere." ROS: No [...] | | 2018 | Visit | | [address] | | | | | | [place], [place] | | | | | | [address] | | | | | | [phone] | | | | | | | | +--------+ + + + + documented as of this encounter Visit Diagnoses + + | Diagnosis | + + | Morbid obesity (HCC) - Primary Morbid obesity | + + | Type 2 diabetes mellitus without complication (HCC) | + + documented in this encounter
--- OUTSIDE RECORDS SUMMARY | ~2019-05-23 | XMS | Encounter Summary ---
Demographics + + + | Address | [address] | | | [place] [address] | + + + | Home Phone [...] + | Katalina Padilla | ECON | [address] | | | | | [place], [place] | | | | | [address] | | + + + + + | Ellie Vang | ECON | Unknown | | + + + + + Care Team Providers + +------+ + | Care Diesel Stationary Engineer Name | Role | Phone | [...] | Pain | Diagnoses | Analisa Georges Survey Research Analyst Psych | | | | Management | Morbid | DANIELLE BrunerP | [address] [address] | | | | | obesity with | [address] | | | | | BMI of [address] | [address] | Mailcode: | | | | | and over, | [place], [place] | CH15P Center | | | | | adult (HCC) | [address] | for Health | | | | | Procedures | Phone: | and Healing, | | | | | CONSULT TO | [phone] | Building 1, | | | | | PAIN | Fax: | 15th Floor | | | | | MANAGEMENT | [phone] | [place], [place] | | | | | [place] | | [address] | | | | | PSYCHIATRIC | | Phone: | | | | | DIAGNOSTIC | | [phone] | | | | | EVAL, NO MED | | Fax: | | | | | [facility] [place] | | [phone] | | | | | PSYCH TSTNG [...] | [facility] | | | with OPERATIONS OFFICER | | hypertension | [address] | [address] | | | | | Right | [address] | [address] | | | | | heart | [place], [place] | Mailcode: | | | | | failure | [address] | Center for | | | | | ([facility]) Type | Phone: | Health and | | | | | 2 diabetes | [phone] | Healing, | | | | | mellitus | Fax: | Building 2 | | | | | without | [phone] | [place], [place] | | | | | complication | | [address] | | | | | , with | | Phone: | | | | | long-term | | [phone] | | | | | current use | | Fax: | | | | | of insulin | | [phone] | | | | | ([facility]) | | | | | | | [...] | | [address] | Ave [place], [place] | adult ([facility]) (Primary | | | | Mailcode: Center | [address] | Dx); 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 These classes will be scheduled apporoximately 1 month apart to allow time for you to put the teaching into action. Please call [phone] + Labs needed: Pre op: drug screen [...] are done + EKG: Please Have your rehabilitation team lead do the eval and send it to us + Pre-op Psychological Evaluation: Your referral is at [facility], The Pain Management Office will call you [...] be safely completed. + Sign up for Tred so that we can communicate easily back and forth Once the above list is completed and copies have been received by our office, we will submi t for insurance authorization then schedule with the surgeon. KAIN De Dios DNP, AMUSEMENT MACHINE MECHANIC Nurse Practitioner for Bariatric Surgery [facility] | [address] | [place], [place] | [address] | documented in this encounter Progress Notes Shereen Georges ACNP - 02/02/2017 9:00 AM PDTFormatting of this note might be different f rom the original. BARIATRIC INITIAL VISIT Provider: Shereen Pinto DNP, KAIN, AMUSEMENT MACHINE MECHANIC Referring Provider: Fadi Goodrich DO Reason for [...] t loss. Consults: Cardiology: Dr. Edson Livingston [facility] Bilingual Sales Representative: Nickie : [facility] Paula But comes to magen Desktop Support Consultant at [facility]: Dr. Zhong for weight loss medication Faith or cultural reason you would refuse blood [...] once daily., Disp : , Rfl: CALCIUM CRB&UWE-X9-LCD60-GENIS ORAL, Take 2 tablets by mouth two [...] Allergic rhinitis Anemia Anxiety Bipolar disorder ([facility]) Chronic wound infection of abdomen from 2010 Cough Depression Diverticulitis of colon Dizziness Glaucoma Heart burn Hemorrhoids Hernia of abdominal wall Incisional hernia, incarcerated 2012 Insomnia Irregular periods Kidney stone Leaking of urine Leg sore Lymphedema Morbid obesity with body mass index of 70 and over in adult ([facility]) Myalgia and myositis Nausea Neck pain Numbness Osteoarthritis of knee Palpitations Pneumonia Shortness of breath Staphylococcal infection Stroke ([facility]) TIA (transient ischemic attack) due to Bromocriptine Tinea corporis UTI (urinary tract infection) Past Surgical History Procedure Laterality Date Tonsillectomy and adenoidectomy Appendectomy, open 2010 Umbilical hernia repair 2010 Treatment of ankle fracture with screws remaining Incision and drainage of wound abscess x2 midline transverse wound s/p open appendectomy 2010 Ventral hernia repair 10/2012 Dr. Andie Brian Incisional hernia repair 03/01/2015 [facility]/ Dr. Cantu. Primary fascial closure and scar [...] History Narrative Updated 11/09/15 She lives in [place] with her mother and her sister (also her caregiver) lives in an [facility]. She has 2 grandchildren (age 4 and 7) who live with her daughter and son-in-law Her boyfriend lives in [place] Family History Problem Relation Heart Attack Father [...] extre mity edema, hypertension, hyperlipidemia. Denies CHF, [place], ischemic heart disease, or pulmon nikki hypertension. [...] years without success. She qual[facility] to control co-morbidities. Elzbieta [...] management, and was referred as well to gold frame assembler. Plan: Request that her rehabilitation team lead clear her, and make recommendations 3. Mammogram: [...] to your private appointme nt with the production supervisor off shift. These classes will be scheduled apporoximately 1 month apart to allow time for you to put the teaching into action. Please call [phone] + Labs needed: lipids, CBC, CMP, TSH, [...] are done + EKG: Please Have your rehabilitation team lead do the eval and send it to us + Pre-op Psychological Evaluation: Your referral is at [facility], The Pain Management Office will call you [...] be safely completed. + Sign up for Tred so that we can communicate easily back and forth Once the above list is completed and copies have been received by our office, we will submi t for insurance authorization then schedule with the surgeon. KAIN De Dios DNP, AMUSEMENT MACHINE MECHANIC Nurse Practitioner for Bariatric Surgery [facility] | [address] | [place], [place] | [address] | documented in this encounter Plan of [...] | | 2018 | Visit | | [address] | | | | | | [place], [place] | | | | | | [address] | | | | | | [phone] | | | | | | | [...]
--- OUTSIDE RECORDS SUMMARY | ~2019-05-23 | XMS | Encounter Summary ---
Demographics + + + | Address | [address] | | | [place] [address] | + + + | Home Phone [...] + | Katalina Padilla | ECON | [address] | | | | | [place], [place] | | | | | [address] | | + + + + + | Ellie Vang | ECON | Unknown | | + + + + + Care Team Providers + +------+ + | Care High Tension Tester Name | Role | Phone | + +------+ + | Fadi Goodrich DO | PCP | | + +------+ + Reason for Visit Diagnostic Testing (Routine) [...] | | | | | (HCC) | [place], [place] | Mailcode: | | | | | Procedures | [address] | [address] [facility] | | | | | CT ABDOMEN & | Phone: | Hospital | | | | | [address] | | [place], [place] | | | | | IV CONTRAST | Fax: | [address] | | | | | [address] CT | [phone] | Phone: | | | | | ABDOMEN&PELV | | [phone] | | | | | IS | | Fax: | | | | | W/CONTRAST | | [phone] | | | | | See chart [...] + + + + | 10/02/ | Hospital | Radiology/Imaging | | | | 2015 | Encounter | Lab at [facility] [address] | | | | | | [address] Mailcode: | | | | | | [facility] | | | | | | Health and Healing, | | | | | | [place] [address], [facility] | | | | | | Floor [place], [place] | | | | | | [address] | | | | | | [phone] | | | +--------+ + + + [...] +---------+--------+ + documented as of this encounter Simran Gudino - 10/12/2014 9:08 AM PDTElectronically signed by Faculty Other at 5 9:08 AM PDTOther, Faculty - 10/12/2014 9:08 AM PDT documented in this encounter Plan of Treatment [...] | | | | | [place], [place] | | | | | | [address] | | | | | | [phone] | | | | | | | [...] for this | | | e | 3:14 PM | | procedure are in the | | | | PST | | results section. | + +--------+ + + + | CREATININE, POC | Routin | 10/02/2014 | | Results for this | | | e | 11:32 AM | | procedure are in the | | | | PDT | | results section. | + +--------+ + + + documented in this encounter Results PROCEDURE NOTE (08/30/2015 3:14 PM PST) + + | Transcriptions | + + | Other, Faculty - 10/13/2014 1:28 PM PDT | + + ROUTINE CHEMISTRY TESTS (RADIOLOGY), POC (10/02/2014 11:32 AM PDT) + +-------+ + + + | Component | Value | Ref Range | Performed | Pathologist | | | | | At | Signature | + +-------+ + + + | CREATININE, | 1.1 | 0.6 - 1.1 mg/dL | [facility], | | | POC | | | [...] + + | JUSTINE PEÑA | [address] [facility] | [place] [address] | | | OF CARE TESTS | | | | + + + + + documented in this encounter Visit Diagnoses + + | Diagnosis | + + | Abdominal pain | + + | Morbid obesity (HCC) Morbid obesity | + + documented in this encounter"
--- OUTSIDE RECORDS SUMMARY | ~2019-05-23 | XMS | Encounter Summary ---
Demographics + + + | Address | [address] | | | [place] [address] | + + + | Home Phone [...] + | Katalina Padilla | ECON | [address] | | | | | [place], [place] | | | | | [address] | | + + + + + | Ellie Vang | ECON | Unknown | | + + + + + Care Team Providers + +------+ + | Care Regulatory Compliance Manager Name | Role | Phone | + +------+ + | Fadi Goodrich DO | PCP | | + +------+ + Encounter Details +--------+ + + + + | Date | Type | Department | Care Team | Description | +--------+ + + + + | 08/16/ | Abstract | Digestive Health | Kathy Feldman, | | | 2013 | | Center at [facility] [address] | METER MECHANIC [address] | | | | | [address] | [facility] [address] | | | | | Mailcode: Center | [place], [place] | | | | | Health and | [address] | | | | | [facility] 2 | [phone] | | | | | [place], [place] | | | | | | [address] | | | | | | [phone] | | | +--------+ + + + [...] | | 2019 | Visit | | [address] | | | | | | [place] [facility] [place] | | | | | | [address] | | | | | | [phone] | | | | | | | | +--------+ + + + + documented as of this encounter Visit Diagnoses Not on filedocumented in this encounter"
--- OUTSIDE RECORDS SUMMARY | ~2019-05-23 | XMS | Encounter Summary ---
Demographics + + + | Address | [address] | | | [place] [address] | + + + | Home Phone [...] [place], [place] | | | | | [address] | | + + + + + | Ellie Vang | ECON | Unknown | | + + + + + Care Team Providers + +------+ + | Care Club Lounge Attendant Name | Role | Phone | + +------+ + | Fadi Goodrich DO | PCP | | + +------+ + Encounter Details +--------+ + + + + | Date | Type | Department | Care Team | Description | +--------+ + + + + | 02/13/ | Abstract | Cardiology | Randell Franks, | | | 2015 | | Preventive at [facility] | MD [address] | | | | | [address] | Ave [place], [place] | | | | | Mailcode: CH9A | [address] | | | | | [facility] | [phone] | | | | | and Healing, | | | | | | [address] | | | | | | [place], [place] | | | | | | [address] | | | | | | [phone] | | | +--------+ + + + [...] [place] | | | | | | [address] | | | | | | [phone] | | | | | | | | +--------+ + + + + documented as of this encounter Visit Diagnoses Not on filedocumented in this encounter"
--- OUTSIDE RECORDS SUMMARY | ~2019-05-23 | XMS | Encounter Summary ---
Demographics + + + | Address | [address] | | | [place] [address] | + + + | Home Phone [...] + | Katalina Padilla | ECON | [address] | | | | | [place], [place] | | | | | [address] | | + + + + + | Ellie Vang | ECON | Unknown | | + + + + + Care Team Providers + +------+ + | Care Mixologist Name | Role | Phone | + [...] | | 2012 | | Center [address] | [address] | | | | | [place] Mailcode: CH4S | [facility] | | | | | [facility] | [place], [place] | | | | | and Healing, | [address] | | | | | [place] [address] [facility] | [phone] | | | | | Floor [place], [place] | | | | | | [address] | | | | | | [phone] | | | +--------+ + + + [...] [place] | | | | | | [address] | | | | | | [phone] | | | | | | | | +--------+ + + + + documented as of this encounter Visit Diagnoses Not on filedocumented in this encounter"
--- OUTSIDE RECORDS SUMMARY | ~2019-05-23 | XMS | Encounter Summary ---
Demographics + + + | Address | [address] | | | [place] [address] | + + + | Home Phone [...] [place], [place] | | | | | [address] | | + + + + + | Ellie Vang | ECON | Unknown | | + + + + + Care Team Providers + +------+ + | Care Fitness Consultant Name | Role | Phone | + +------+ + | Kenyatta Cardenas MD | PCP | | + +------+ + Encounter Details +--------+--------+ + + + | Date | Type | Department | Care Team | Description | +--------+--------+ + + + | 03/22/ | Travel | | | | | [...] | | 2019 | Visit | | [address] | | | | | | [place], [place] | | | | | | [address] | | | | | | [phone] | | | | | | | | +--------+ + + + + documented as of this encounter Visit Diagnoses Not on filedocumented in this encounter"
--- OUTSIDE RECORDS SUMMARY | ~2019-05-23 | XMS | Encounter Summary ---
Demographics + + + | Address | [address] | | | [place] [address] | + + + | Home Phone [...] + | Katalina Padilla | ECON | [address] | | | | | [place], [place] | | | | | [address] | | + + + + + | Ellie Vang | ECON | Unknown | | + + + + + Care Team Providers + +------+ + | Care Children'S Attendant Name | Role | Phone | + +------+ + | Fadi Goodrich DO | PCP | | + +------+ + Reason for Visit + + + | Reason | Comments | + + + | Committee Review | | | Recommendations | | + + + Encounter Details +--------+ + + + + | Date | Type | Department | Care Team | Description | +--------+ + + + + | 12/03/ | Committee | Digestive Health | Shereen Georges, | Committee Review | | 2018 | Review | Center at [facility] [address] | AC[facility] [address] | Recommendations | | | | [address] | [place], [place] | | | | | Mailcode: [place] | [address] | | | | | for Health and | [phone] | | | | | [facility] 2 | | | | | | [place], [place] | | | | | | [address] | | | | | | [phone] | | | +--------+ + + + [...] | | | | | [place] | | | | | | [address] | | | | | | [phone] | | | | | | | | +--------+ + + + + documented as of this encounter Visit Diagnoses Not on filedocumented in this encounter"
--- OUTSIDE RECORDS SUMMARY | ~2019-05-23 | XMS | Encounter Summary ---
Demographics + + + | Address | [address] | | | [place] [address] | + + + | Home Phone [...] + | Katalina Padilla | ECON | [address] | | | | | [place], [place] | | | | | [address] | | + + + + + | Ellie Vang | ECON | Unknown | | + + + + + Care Team Providers + +------+ + | Care Registered Nurse Fetal Name | Role | Phone | + +------+ + | Fadi Goodrich DO | PCP | | + +------+ + Encounter Details +--------+ + + + + | Date | Type | Department | Care Team | Description | +--------+ + + + + | 07/19/ | Abstract | Digestive Health | Kathy Feldman, | | | 2012 | | Center at [facility] [address] | WEIGHT LOSS COUNSELOR [address] | | | | | [address] | [facility] 350 | | | | | Mailcode: Center | [place], [place] | | | | | [facility] and | [address] | | | | | [facility] 2 | [phone] | | | | | [place], [place] | | | | | | [address] | | | | | | [phone] | | | +--------+ + + + [...] | | 2019 | Visit | | [address] | | | | | | [place] [facility] [place] | | | | | | [address] | | | | | | [phone] | | | | | | | | +--------+ + + + + documented as of this encounter Visit Diagnoses Not on filedocumented in this encounter"
--- OUTSIDE RECORDS SUMMARY | ~2019-05-23 | XMS | Encounter Summary ---
Demographics + + + | Address | [address] | | | [place] [address] | + + + | Home Phone [...] + | Katalina Padilla | ECON | [address] | | | | | [place], [place] | | | | | [address] | | + + + + + | Ellie Vang | ECON | Unknown | | + + + + + Care Team Providers + +------+ + | Care Psychiatric Attendant Name | Role | Phone | [...] | | 2016 | | Preventive at [facility] | [address] | (Phentermine) | | | | [address] | Ave [place], [place] | | | | | Mailcode: [place] | [address] | | | | | [facility] | [phone] | | | | | and [address], | | | | | | [address] | | | | | | [place], [place] | | | | | | [address] | | | | | | [phone] | | | +--------+ + + + [...] | | | | | [place], [place] | | | | | | [address] | | | | | | [phone] | | | | | | | | +--------+ + + + + documented as of this encounter Visit Diagnoses Not on filedocumented in this encounter"
--- OUTSIDE RECORDS SUMMARY | ~2019-05-23 | XMS | Encounter Summary ---
Demographics + + + | Address | [address] | | | [place] [address] | + + + | Home Phone [...] + | Katalina Padilla | ECON | [address] | | | | | [place], [place] | | | | | [address] | | + + + + + [...] | | 2018 | | Preventive at [facility] | [address] | (Phentermine 37.5mg) | | | | [address] | [place], [place] | | | | | Mailcode: [place] | [address] | | | | | [facility] | [phone] | | | | | and [address], | | | | | | [address] | | | | | | [place], [place] | | | | | | [address] | | | | | | [phone] | | | +--------+ + + + [...] | | | | | [place] | | | | | | [address] | | | | | | [phone] | | | | | | | | +--------+ + + + + documented as of this encounter Visit Diagnoses Not on filedocumented in this encounter"
--- OUTSIDE RECORDS SUMMARY | ~2019-05-23 | XMS | Clinical Summary ---
Demographics + + + | Address | [address] | | | [place] [address] | + + + | Home Phone [...] | [facility] | | | and Jeffana | + + + | Organization | 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 | | | | | e | + + + +---------+------+------+-------+ | atenolol | Take 50 mg by mouth | | 0 | | | Activ | | (TENORMIN) 50 mg | nightly. | | | | | e | | tablet | | | | | | | + + + +---------+------+------+-------+ | buprenorphine | Place 600 mcg inside | | 0 | 03/0 | | Activ | | (BELBUCA) 300 mcg | cheek every 12 | | | 7/20 | | e | | buccal film | hours. | | | 19 | | | + + + +---------+------+------+-------+ | ergocalciferol | Take 1 capsule by | | 0 | 11/0 | | Activ | | (VITAMIN D-2) 50,000 | mouth every 7 days. | | | 920 | | e | | units capsule [...] 400 mg | Daily. | | | 20 | | [...] 50 mg | Daily. | | | 20 | | e | | tablet | | | | 16 | | | + + + +---------+------+------+-------+ | torsemide | Take 100 mg by mouth | | 0 | 08/1 | | Activ | | (DEMADEX) 100 mg | 2 times daily. | | | 20 | | e [...] 0 | | | Activ | | Dduqayx-Qxgfmadrh-Xt | mouth 2 times daily. | | [...] | + + + +---------+------+------+-------+ | thyroid (WIRE STRAIGHTENER | WIRE STRAIGHTENER Thyroid 30 mg | | 0 | [...] + + +---------+------+------+-------+ | potassium chloride | Take 20 mEq by mouth | | 0 | | 10/0 | Disco | | (KLOR-CON) 20 MEQ | 2 times daily. | | | | 3/20 | ntinu | | packet | | | | | 19 | ed | + + + +---------+------+------+-------+ | pramipexole | Take by mouth. | | 0 | | 10/0 | Disco | | (MIRAPEX) 0.125 MG | | | | | 3/20 | ntinu | | tablet | | | | | 19 | ed | + + + +---------+------+------+-------+ | docusate-senna | Take 1 tablet by | | 0 | | 10/0 | Disco | | (SENOKOT-S) 50-8.6 | mouth 2 times daily. | | | | 3/20 | ntinu | | mg per tablet | | | | | 19 | ed | + + + +---------+------+------+-------+ | thyroid (ARMOUR | Take 30 mg by mouth | | 0 | | 10/0 | Disco | | THYROID) 30 mg | Daily. | | | | 3/20 | ntinu | | tablet | | | | | 19 | ed | + + + +---------+------+------+-------+ | ascorbic acid | ascorbic acid | | 0 | | 10/0 | Disco | | (VITAMIN C) 500 mg | (vitamin C) 500 mg | | | | 3/20 | ntinu | | tablet | tablet 500 mg by | | | | 19 | ed | | | oral route. | | | | | | + + + +---------+------+------+-------+ | UNABLE TO FIND | Calcium 600 with | | 0 | | 10/0 | Disco | | | Vitamin D3 600 mg | | | | 3/20 | ntinu | | | (1,500 mg)-400 unit | | | | 19 | ed | | | capsule OTC AD | | | | | | + + + +---------+------+------+-------+ | UNABLE TO FIND | cyanocobalamin (vit | | 0 | | 10/0 | Disco | | | B-12) 1,000 mcg/mL | | | | 3/20 | ntinu | | | injection solution | | | | 19 | ed | | | Inject 1 mL every | | | | | | | | month by | | | | | | | | intramuscular route. | | | | | | + + + +---------+------+------+-------+ | albuterol (PROAIR | ProAir HFA 90 | | 0 | | 10/0 | Disco | | HFA) 90 mcg/puff | mcg/actuation | | | | 3/20 | ntinu | | inhaler | aerosol inhaler | | | | 19 | ed | | | Inhale 2 puffs every | | | | | | | | 4 hours by | | | | | | | | inhalation route prn | | | | | | | | wheezing. | | | | | | + + + +---------+------+------+-------+ | bupivacaine, PF, | Marcaine (PF) 0.25 % | | 0 | | 10/0 | Disco | | (MARCAINE | (2.5 mg/mL) | | | | 3/20 | ntinu | | PRESERVATIVE FREE) | injection solution | | | | 19 | ed | | 0.25% SOLN | Take 4 mL every day | | | | | | | | by injection route. | | | | | | + + + +---------+------+------+-------+ | buprenorphine | Butrans 20 mcg/hour | | 0 | | 10/0 | Disco | | (BUTRANS) 20 mcg/hr | transdermal patch | | | | 3/20 | ntinu | | patch | Apply 1 patch every | | | | 19 | ed | | | week by transdermal | | | | | | | | route. for chronic | | | | | | | | leg pain. | | | | | | + + + +---------+------+------+-------+ | | Suboxone 2 mg-0.5 mg | | 0 | | 10/0 | Disco | | buprenorphine-naloxo | sublingual film | | | | 3/20 | ntinu | | ne (SUBOXONE) 2-0.5 | | | | | 19 | ed | | mg SL film | | | | | | | + + + +---------+------+------+-------+ | chlorhexidine | chlorhexidine | | 0 | | 10/0 | Disco | | (PERIDEX) 0.12% | gluconate 0.12 % | | | | 3/20 | ntinu | | solution | mouthwash | | | | 19 | ed | + + + +---------+------+------+-------+ | clindamycin | clindamycin HCl 150 | | 0 | | 10/0 | Disco | | (CLEOCIN) 150 mg | mg capsule | | | | 3/20 | ntinu | | capsule | | | | | 19 | ed | + + + +---------+------+------+-------+ | clindamycin | clindamycin HCl 300 | | 0 | | 10/0 | Disco | | (CLEOCIN) 300 MG | mg capsule | | | | 3/20 | ntinu | | capsule | | | | | 19 | ed | + + + +---------+------+------+-------+ | cyclobenzaprine | cyclobenzaprine 10 | | 0 | | 10/0 | Disco | | (FLEXERIL) 10 mg | mg tablet TAKE ONE | | | | 3/20 | ntinu | | tablet | TABLET BY MOUTH | | | | 19 | ed | | | THREE TIMES DAILY | | | | | | | | NEEDED FOR MUSCLE | | | | | | | | SPASM FOR 10 DAYS | | | | | | + + + +---------+------+------+-------+ | digoxin (LANOXIN) | digoxin 250 mcg | | 0 | | 10/0 | Disco | | 250 mcg tablet | tablet 250 ugs by | | | | 3/20 | ntinu | | | oral route. | | | | 19 | ed | + + + +---------+------+------+-------+ | enoxaparin | enoxaparin 40 mg/0.4 | | 0 | | 10/0 | Disco | | (LOVENOX) 40 mg/0.4 | mL subcutaneous | | | | 3/20 | ntinu | | mL injection | syringe | | | | 19 | ed | + + + +---------+------+------+-------+ | enoxaparin | Lovenox 100 mg/mL | | 0 | 05/0 | 10/0 | Disco | | (LOVENOX) 100 mg/mL | subcutaneous syringe | | | 5/20 | 3/20 | ntinu | | injection | 200 mg by sub-q | | | 16 | 19 | ed | | | route. | | | | | | + + + +---------+------+------+-------+ | fluticasone | fluticasone | | 0 | | 10/0 | Disco | | (FLONASE) 50 | propionate 50 | | | | 3/20 | ntinu | | mcg/nasal spray | mcg/actuation nasal | | | | 19 | ed | | | spray,suspension | | | | | | + + + +---------+------+------+-------+ | gabapentin | gabapentin 300 mg | | 0 | | 10/0 | Disco | | (NEURONTIN) 300 mg | capsule | | | | 3/20 | ntinu | | capsule | | | | | 19 | ed | + + + +---------+------+------+-------+ | | hydrocodone 10 | | 0 | | 10/0 | Disco | | HYDROcodone-acetamin | mg-acetaminophen 325 | | | | 3/20 | ntinu | | ophen (NORCO) 10-325 | mg tablet | | | | 19 | ed | | mg per tablet | | | | | | | + + + +---------+------+------+-------+ | HYDROmorphone | hydromorphone 2 mg | | 0 | | 10/0 | Disco | | (DILAUDID) 2 mg | tablet take 1 to 2 | | | | 3/20 | ntinu | | tablet | tablets by mouth | | | | 19 | ed | | | every 4 to 6 hours | | | | | | | | if needed for pain | | | | | | + + + +---------+------+------+-------+ | hydrOXYzine | hydroxyzine HCl 25 | | 0 | | 10/0 | Disco | | hydrochloride | mg tablet | | | | 3/20 | ntinu | | (ATARAX) 25 mg | | | | | 19 | ed | | tablet | | | | | | | + + + +---------+------+------+-------+ | ibuprofen | ibuprofen 800 mg | | 0 | 04/0 | 10/0 | Disco | | (ADVIL,MOTRIN) 800 | tablet Take 1 tablet | | | 8/20 | 3/20 | ntinu | | MG tablet | 3 times a day by | | | 13 | 19 | ed | | | oral route prn pain | | | | | | | | and inflammation. | | | | | | + + + +---------+------+------+-------+ | insulin aspart | Novolog U-100 | | 0 | | 10/0 | Disco | | (NOVOLOG) 100 | Insulin aspart 100 | | | | 3/20 | ntinu | | units/mL injection | unit/mL subcutaneous | | | | 19 | ed | | | solution | | | | | | + + + +---------+------+------+-------+ | insulin detemir | Levemir U-100 | | 0 | 06/1 | 10/0 | Disco | | (LEVEMIR) 100 | Insulin 100 unit/mL | | | 6/20 | 3/20 | ntinu | | units/mL injection | subcutaneous | | | 16 | 19 | ed | | (vial) | solution | | | | | | + + + +---------+------+------+-------+ | ketorolac | ketorolac 60 mg/2 mL | | 0 | | 10/0 | Disco | | (TORADOL) 60 mg/2 mL | intramuscular | | | | 3/20 | ntinu | | SOLN | solution Inject 2 mL | | | | 19 | ed | | | every day by | | | | | | | | intramuscular route | | | | | | | | x 1. | | | | | | + + + +---------+------+------+-------+ | metFORMIN | metformin 1,000 mg | | 0 | | 10/0 | Disco | | (GLUCOPHAGE) 1000 MG | tablet TAKE ONE | | | | 3/20 | ntinu | | tablet | TABLET BY MOUTH | | | | 19 | ed | | | TWICE DAILY | | | | | | + + + +---------+------+------+-------+ | methylPREDNISolone | Solu-Medrol (PF) 125 | | 0 | | 10/0 | Disco | | sodium succinate | mg/2 mL solution | | | | 3/20 | ntinu | | (SOLU-MEDROL) 62.5 | for injection Take | | | | 19 | ed | | mg/mL injection | 125 mg every day by | | | | | | | | injection route. | | | | | | + + + +---------+------+------+-------+ | naproxen sodium | naproxen sodium 550 | | 0 | | 10/0 | Disco | | (ANAPROX) 550 MG | mg tablet take 1 | | | | 3/20 | ntinu | | tablet | tablet by mouth | | | | 19 | ed | | | twice a day if | | | | | | | | needed | | | | | | + + + +---------+------+------+-------+ | nystatin | Nyamyc 100,000 | | 0 | | 10/0 | Disco | | (NYSTATIN) 076016 | unit/gram topical | | | | 3/20 | ntinu | | UNIT/GM powder | powder | | | | 19 | ed | + + + +---------+------+------+-------+ | OLANZapine | olanzapine 15 mg | | 0 | | 10/0 | Disco | | (ZYPREXA) 15 MG | tablet TAKE 2 | | | | 3/20 | ntinu | | tablet | TABLETS BY MOUTH AT | | | | 19 | ed | | | BEDTIME | | | | | | + + + +---------+------+------+-------+ | ondansetron | ondansetron 4 mg | | 0 | | 10/0 | Disco | | (ZOFRAN ODT) 4 mg | disintegrating | | | | 3/20 | ntinu | | disintegrating | tablet | | | | 19 | ed | | tablet | | | | | | | + + + +---------+------+------+-------+ | ondansetron | ondansetron 8 mg | | 0 | | 10/0 | Disco | | (ZOFRAN ODT) 8 mg | disintegrating | | | | 3/20 | ntinu | | disintegrating | tablet | | | | 19 | ed | | tablet | | | | | | | + + + +---------+------+------+-------+ | oxyCODONE | oxycodone ER 30 mg | | 0 | | 10/0 | Disco | | (OXYCONTIN) 30 mg ER | tablet,crush | | | | 3/20 | ntinu | | abuse-deterrent | resistant,extended | | | | 19 | ed | | tablet | release 12 hr Take 1 | | | | | | | | tablet every 12 | | | | | | | | hours by oral route. | | | | | | | | for pain | | | | | | + + + +---------+------+------+-------+ | | Percocet 5 mg-325 mg | | 0 | | 10/0 | Disco | | oxyCODONE-acetaminop | tablet Take 1 | | | | 3/20 | ntinu | | hen (PERCOCET) 5-325 | tablet every 6 hours | | | | 19 | ed | | mg per tablet | by oral route prn | | | | | | | | pain. | | | | | | + + + +---------+------+------+-------+ | piroxicam | piroxicam 10 mg | | 0 | | 10/0 | Disco | | (FELDENE) 10 mg | capsule TAKE ONE | | | | 3/20 | ntinu | | capsule | CAPSULE BY MOUTH | | | | 19 | ed | | | ONCE DAILY WITH FOOD | | | | | | + + + +---------+------+------+-------+ | potassium chloride | Klor-Con M20 mEq | | 0 | | 10/0 | Disco | | (KLOR-CON M20) 20 | tablet,extended | | | | 3/20 | ntinu | | mEq ER tablet | release | | | | 19 | ed | + + + +---------+------+------+-------+ | promethazine | promethazine 25 mg | | 0 | | 10/0 | Disco | | (PHENERGAN) 25 mg | tablet 1/2 tab PO QD | | | | 3/20 | ntinu | | tablet | PRN | | | | 19 | ed | + + + +---------+------+------+-------+ | pseudoePHEDrine | Sudogest 12-hour 120 | | 0 | | 10/0 | Disco | | (SUDOGEST 12 HOUR) | mg tablet,extended | | | | 3/20 | ntinu | | 120 mg 12 hr tablet | release TAKE ONE | | | | 19 | ed | | | TABLET BY MOUTH | | | | | | | | EVERY 12 HOURS | | | | | | | | NEEDED | | | | | | + + + +---------+------+------+-------+ | raNITIdine | ranitidine 150 mg | | 0 | | 10/0 | Disco | | (ZANTAC) 150 mg | tablet | | | | 3/20 | ntinu | | tablet | | | | | 19 | ed | + + + +---------+------+------+-------+ | simethicone | Gas Relief 80 mg | | 0 | | 10/0 | Disco | | (MYLICON) 80 mg | chewable tablet | | | | 3/20 | ntinu | | chewable tablet | | | | | 19 | ed | + + + +---------+------+------+-------+ | tiZANidine | tizanidine 2 mg | | 0 | | 10/0 | Disco | | (ZANAFLEX) 2 MG | tablet TAKE ONE TO | | | | 3/20 | ntinu | | tablet | TWO TABLETS BY MOUTH | | | | 19 | ed | | | AT BEDTIME | | | | | | | | NEEDED FOR MUSCLE | | | | | | | | SPASM | | | | | | + + + +---------+------+------+-------+ | topiramate | Take two tablets by | | 0 | | 10/0 | Disco | | (TOPAMAX) 200 MG | mouth twice daily | | | | 3/20 | ntinu | | tablet | | | | | 19 | ed | + + + +---------+------+------+-------+ | traZODone | trazodone 150 mg | | 0 | | 10/0 | Disco | | (DESYREL) 150 MG | tablet TAKE 1 TABLET | | | | 3/20 | ntinu | | tablet | BY MOUTH AT BEDTIME | | | | 19 | ed | | | FOR SLEEP | | | | | | + + + +---------+------+------+-------+ | ursodiol | ursodiol 300 mg | | 0 | | 10/0 | Disco | | (ACTIGALL) 300 mg | capsule | | | | 3/20 | ntinu | | capsule | | | | | 19 | ed | + + + +---------+------+------+-------+ | warfarin | warfarin 6 mg tablet | | 0 | | 10/0 | Disco | | (COUMADIN) 6 MG | | | | | 3/20 | ntinu | | tablet | | | | | 19 | ed | + + + +---------+------+------+-------+ | atenolol | atenolol 25 mg | | 0 | | 10/0 | Disco | | (TENORMIN) 25 mg | tablet | | | | 3/20 | ntinu | | tablet | | | | | 19 | ed | + + + +---------+------+------+-------+ | atenolol | atenolol 50 mg | | 0 | | 10/0 | Disco | | (TENORMIN) 50 mg | tablet Take 1 tablet | | | | 3/20 | ntinu | | tablet | every day by oral | | | | 19 | ed | | | route. | | | | | | + + + +---------+------+------+-------+ | buprenorphine | buprenorphine HCl 2 | | 0 | | 10/0 | Disco | | (SUBUTEX) 2 mg SUBL | mg sublingual tablet | | | | 3/20 | ntinu | | | Place 1 tablet | | | | 19 | ed | | | every day by | | | | | | | | sublingual route as | | | | | | | | needed. | | | | | | + + + +---------+------+------+-------+ | PARoxetine (PAXIL) | Paxil 20 mg tablet | | 0 | | 10/0 | Disco | | 20 mg tablet | Take 2 tablets every | | | | 3/20 | ntinu | | | day by oral route. | | | | 19 | ed | + + + +---------+------+------+-------+ | spironolactone | spironolactone 100 | | 0 | | 10/0 | Disco | | (ALDACTONE) 100 MG | mg tablet | | | | 3/20 | ntinu | | tablet | | | | | 19 | ed | + + + +---------+------+------+-------+ | spironolactone | spironolactone 50 mg | | 0 | | 10/0 | Disco | | (ALDACTONE) 50 mg | tablet | | | | 3/20 | ntinu | | tablet | | | | | 19 | ed | + + + +---------+------+------+-------+ | torsemide | torsemide 100 mg | | 0 | | 10/0 | Disco | | (DEMADEX) 100 mg | tablet | | | | 3/20 | ntinu | | tablet | | | | | 19 | ed | + + + +---------+------+------+-------+ | ferrous sulfate | ferrous sulfate 220 | | 0 | | 10/0 | Disco | | 220 mg (44 mg | mg (44 mg iron)/5 mL | | | | 3/20 | ntinu | | elemental iron)/5 mL | oral solution Take | | | | 19 | ed | | liquid | 5 mL twice a day by | | | | | | | | oral route for | | | | | | | | anemia. | | | | | | + + + +---------+------+------+-------+ | insulin - MIX | Humulin 70/30 U-100 | | 0 | 03/2 | 10/0 | Disco | | insulin NPH-insulin | Insulin 50 U/D 1 IM | | | 3/20 | 3/20 | ntinu | | regular 70/30 | BID AD | | | 10 | 19 | ed | | (HUMULIN 70/30) 100 | | | | | | | | units/mL injection | | | | | | | + + + +---------+------+------+-------+ | lidocaine 10 mg/mL | lidocaine 10 mg/mL | | 0 | | 10/0 | Disco | | IV syringe | (1 %) injection | | | | 3/20 | ntinu | | | solution Take 4 mL | | | | 19 | ed | | | every day by | | | | | | | | injection route. | | | | | | + + + +---------+------+------+-------+ | magnesium oxide | magnesium oxide 400 | | 0 | | 10/0 | Disco | | (MAG-OX) 400 mg | mg (241.3 mg | | | | 3/20 | ntinu | | tablet | magnesium) tablet | | | | 19 | ed | | | TAKE 1 TABLET BY | | | | | | | | MOUTH ONCE DAILY | | | | | | + + + +---------+------+------+-------+ | methylPREDNISolone | methylprednisolone 4 | | 0 | | 10/0 | Disco | | (MEDROL) 4 mg | mg tablets in a | | | | 3/20 | ntinu | | tablet | dose pack | | | | 19 | ed | + + + +---------+------+------+-------+ | mupirocin | mupirocin 2 % | | 0 | | 10/0 | Disco | | (BACTROBAN) 2% | topical ointment | | | | 3/20 | ntinu | | ointment | | | | | 19 | ed | + + + +---------+------+------+-------+ | nitrofurantoin | nitrofurantoin | | 0 | | 10/0 | Disco | | (MACROBID) 100 mg | monohydrate/macrocry | | | | 3/20 | ntinu | | capsule | stals 100 mg capsule | | | | 19 | ed | + + + +---------+------+------+-------+ | Insulin Pen Needle | Novofine 32 32 gauge | | 0 | | 10/0 | Disco | | (NOVOFINE) 32G X 6 | x 1/4" needle | | | | 3/20 | ntinu | | MM MISC | | | | | 19 | ed | + + + +---------+------+------+-------+ | insulin - MIX | Novolin 70/30 U-100 | | 0 | | 10/0 | Disco | | insulin NPH-insulin | Insulin 100 unit/mL | | | | 3/20 | ntinu | | regular 70/30 | subcutaneous | | | | 19 | ed | | (NOVOLIN 70/30) 100 | suspension | | | | | | | units/mL injection | | | | | | | + + + +---------+------+------+-------+ | insulin NPH | Novolin N NPH U-100 | | 0 | | 10/0 | Disco | | (HUMULIN N, NOVOLIN | Insulin isophane 100 | | | | 3/20 | ntinu | | N) 100 units/mL | unit/mL | | | | 19 | ed | | injection | subcutaneous susp | | | | | | + + + +---------+------+------+-------+ | omeprazole | omeprazole 20 mg | | 0 | | 10/0 | Disco | | (PRILOSEC) 20 mg | capsule,delayed | | | | 3/20 | ntinu | | capsule | release | | | | 19 | ed | + + + +---------+------+------+-------+ | oxyCODONE | oxycodone 5 mg | | 0 | | 10/0 | Disco | | (ROXICODONE) 5 mg | tablet | | | | 3/20 | ntinu | | tablet | | | | | 19 | ed | + + + +---------+------+------+-------+ | polyethylene | polyethylene glycol | | 0 | | 10/0 | Disco | | glycol (MIRALAX) | 3350 17 gram/dose | | | | 3/20 | ntinu | | powder | oral powder | | | | 19 | ed | + + + +---------+------+------+-------+ | POTASSIUM PO | potassium | | 0 | | 10/0 | Disco | | | OTC AD | | | | 3/20 | ntinu | | | | | | | 19 | ed | + + + +---------+------+------+-------+ | SODIUM FLUORIDE, | SF 5000 Plus 1.1 % | | 0 | | 10/0 | Disco | | DENTAL, (SF 5000 | dental cream | | | | 3/20 | ntinu | | PLUS) 1.1 % CREA | | | | | 19 | ed | + + + +---------+------+------+-------+ | ketorolac | Toradol 10 mg tablet | | 0 | | 10/0 | Disco | | (TORADOL) 10 MG | Take 1 tablet 3 | | | | 3/20 | ntinu | | tablet | times a day by oral | | | | 19 | ed | | | route prn | | | | | | | | dysmenorrhea. | | | | | | + + + +---------+------+------+-------+ | Ascorbic Acid | Vitamin C | | 0 | | 10/0 | Disco | | (VITAMIN C PO) | OTC AD | | | | 3/20 | ntinu | | | | | | | 19 | ed | + + + +---------+------+------+-------+ | ergocalciferol | Vitamin D2 50,000 | | 0 | | 10/0 | Disco | | (VITAMIN D-2) 50,000 | unit capsule | | | | 3/20 | ntinu | | units capsule | | | | | 19 | ed | + + + +---------+------+------+-------+ Active Problems [...] + + + | Overview: Problem List Vice Provost Utility | + + + + + [...] | Overview: Overview: Presumed due to menses. Tessie 200 qd x | | 30 October 2015 [facility] Assessment & Plan: Hgb appears to [...] obesityPickwickian syndrome | | Recent admission to [facility] for 100lb | | weight gain- DC on diuresis on 03/06/2016- she feel improvedShe | | was on Metolazone and Torsemide prior to hospitalization- both | | have better bioavailability than lasix in gut edema but she | | retained 100lbs - how ever she is currently on only Torsemide | | 100mg Q12hrs started in [place] and her weight been stable | | sinceShe has no other complaints.She is pending to see | | NephrologistEcho 02/16/2016([facility] Normal LV systolic | | function, [...] morbid obesity, she is enrolled in the [facility] bariatric program. | | She has lost [...] inpatient, tolerating well in the | | hospital-- [facility] arranging for [facility] | | areaOverview: Cannot tolerate CPAP | [...] | | current use of insulin | | 9 | + + + + [...] + + + + | Overview: Overview: [facility] Assessment & Plan: Patient with | [...] responded well to diuresis at | | [facility] (lost 60lb, down to 410), and then reaccumulated water | | weight on Torsemide and metolazone, which should be less effected | | by gut wall edema than Lasix. She has an appt with nephrology at | | [facility] on 03/17. Weight now 200kg (440lb, down [...] Defer Metolazone to her | | outpatient [employer] or [employer]- Will continue KCL | | supplementation at 60meq QID despite the spironolactone as she | | remains on the low side- Encourage daily weights at home with a | | log; she should contact her PCP, [employer] or Pressroom Foreman for | | a 10lb weight gain [...] embolism | +--------+ + + + + | 02/22/ | Orders Only | | Sulema Altamirano | | | 2019 | | | HILDA Pope | | +--------+ + + + + from [...] + | Blood Pressure | 130/76 | 04/28/20191255 PDT | + + + + | Pulse | 76 | 04/28/20191255 PDT | + + + + | Temperature | 36.7 C (98 F) | 02/15/2019921 PDT | + + + + | Respiratory Rate | 18 | 02/15/2019921 PDT | + + + + | Oxygen Saturation | 99% | 04/28/20191255 PDT | + + + + | Inhaled Oxygen | - | - | | Concentration | | | + + + + | Weight | 123.3 kg (271 lb | 04/28/20191255 PDT | | | 12.8 oz) | | + + + + | Height | 147.3 cm (4' 10") | 04/28/20191255 PDT | + + + + | Body Mass Index | 56.81 | 04/28/20191255 PDT | + + + + Plan of Treatment +--------+---------+ + + + | Date | Type | Specialty | Care Team | Description | +--------+---------+ + + + | 05/26/ | Office | Audiology | Sherron Freedman MS | | | 2019 | Visit | | [facility] [address] | | | | | | [address] | | | | | | [place] [address] | | | | | | [phone] | | | | | | | | +--------+---------+ + + + + + + + [...] + + | Microalbumin | | 09/27/2018, 09/27/2018, | | | Screening | 0 | 10/07/2017, Additional history | | | | | [...] for this | | | e | 13:27 PDT | heart failure (HCC) | procedure are in the | | | | | History of sinus | results section. [...] Results for this | | | | 0:00 PDT | | procedure are in the [...] + + from Last 3 Months Results ECG 12 lead (04/28/2019 13:27 PDT) + + + + + + [...] | | | | | by [facility] Read Only, | | | | | | [facility] [place] ([id number]), | | | | | | editor city [place] | | | | | | ([id number]) on 04/28/2019 | | | | | [...] + + LABS - EXTERNAL SCAN (04/09/2019 0:00 PDT) + + + | Narrative | Performed At | + + + | Ordered by an | | | unspecified provider. | | + + + ECHO Interpretation of Outside Films (02/22/2019 15:17 [...] 0.61 m/s | | | MV Dec Dooly: 2.43 m/s2 MV DecT: 247.51 ms MV E Jeffrey: | | | 0.60 m/s MV E/A Ratio: 0.98 MV PHT: 71.78 ms MVA By | | | PHT: 3.06 cm2 Septal e': 0.06 m/s Septal E/e': 9.54 | | | Lateral e': 0.10 m/s Lateral E/e': 5.84 RAP: 5 mmHg RV | | | s': 0.11 m/s Second Grade Teacher: JESSICA Authenticated by: Darryl | | | [facility] Report Date/Time: 02-22-2019 20:8:36 | | + + + + --------+ | Procedure Note | + --------+ | Aditya, Rad Conversion - 03/17/2019 1308 PDT Patient Name: Tiny Cristina of : | | 1975 Performing Physician: Darryl | | [facility] INDICATIONS------ | | -----Sinus Tachycardia CONCLUSIONS 1. [...] cmLVIDd: 4.70 cmLVPWd: 0.79 cmLVOT Area: 3.58 [id number] Diam: 2.13 cm%FS: 39.25 | | %EF(Teich): [...] | Index (A-L): 14.72 ml/m2LAAs A2C: 10.03 [id number] A-L A2C: 22.69 mlLALs A2C: 3.76 | | cmLAAs A4C: 13.41 kd7IRCNL A-L A4C: 36.80 mlLALs A4C: 4.14 cmRAAs: 11.18 | | ip5GQPBQ A-L: 22.84 mlRAESV MOD: 22.10 mlRALs: 4.64 cmTAPSE: 2.04 cmAV maxPG: | | 6.55 mmHgAV meanP.52 mmHgAV Vmax: 1.27 m/Genesis Vmean: 0.88 m/Genesis VTI: 26.50 | | cmAVA Vmax: 2.49 cm2AVA (VTI): 2.39 ri2ESSM Vmax: 0.00 cm2/m2AVAI (VTI): 0.00 | | cm2/m2LVOT maxP.17 mmHgLVOT meanP.82 mmHgLVSI Dopp: 30.83 ml/m2LVSV Dopp: | | 63.52 mlLVOT Vmax: 0.89 m/sLVOT Vmean: 0.65 m/sLVOT VTI: 17.71 cmMV A Jeffrey: | | 0.61 m/sMV Dec Dooly: 2.43 m/s2MV DecT: 247.51 msMV E Jeffrey: 0.60 m/sMV E/A Ratio: | | 0.98MV PHT: 71.78 msMVA By PHT: 3.06 gm8Cgkuuu e': 0.06 m/sSeptal E/e': | | 9.54Lateral e': 0.10 m/sLateral E/e': 5.84RAP: 5 mmHgRV s': 0.11 m/s | | Second Grade Teacher: DHAuthenticated by: [facility] Date/Time: 02-22-2019 20:8:36 | | IMPRESSION: 1. [...] A Jeffrey: 0.61 m/s | |MV Dec Dooly: 2.43 m/s2 | |MV DecT: 247.51 ms | |MV E Jeffrey: 0.60 m/s | |MV E/A Ratio: 0.98 | |MV PHT: 71.78 ms | |MVA By PHT: 3.06 cm2 | |Septal e': 0.06 m/s | |Septal E/e': 9.54 | |Lateral e': 0.10 m/s | |Lateral E/e': 5.84 | |RAP: 5 mmHg | |RV s': 0.11 m/s | | | |Second Grade Teacher: JESSICA | |Authenticated by: Darryl Merrill | [...] is no pericardial effusion. | + --------+ from Last 3 Months Insurance + +--------+ [...] | [employer] | MODA | [id number] | 10/28/19 | [phone] | | Medica | | MEDICAID HMO | HEALTH | | 19-Pre | 1 | | id | | | MDCD | | sent | | | | | | [place] | | | | | | + +--------+ +--------+ +---------+--------+ | [employer] | MODA | [id number] | | [phone] | | Medica | | MEDICAID HMO [...] | | al/Fam | | 1974 | [phone] | [address] [place] | | | [place] | | | 3 (Home) | [address] | + +--------+ +--------+ + + | Elzbieta Cristina | Person | Self | [birth year] | [address] | | | al/Fam | | 1975 | [phone] | [address] [place] | | | [place] | | | 3 ([place]) | [address] | + +--------+ +--------+ + + Advance Directives Patient has advance care planning documents on file. For more information, please contact:[facility] [address]
--- OUTSIDE RECORDS SUMMARY | ~2019-05-23 | XMS | Encounter Summary ---
Demographics + + + | Address | [address] | | | [place] [address] | + + + | Home Phone [...] [place], [place] | | | | | [address] | | + + + + + | Ellie Vang | ECON | Unknown | | + + + + + Care Team Providers + +------+ + | Care Carpet Mechanic Name | Role | Phone | [...] | | | | failure | [address] | PA-C [address] | | | | | ([facility]) | [address] | [address] | | | | | Procedures | [place], [place] | [place], [place] | | | | | CONSULT TO | [address] | [address] | | | | | CAR | Phone: | Phone: | | | | | PREVENTATIVE | [phone] | [phone] | | | | | [facility] - | Fax: | Fax: | | | | | LIPIDS | [phone] | [phone] | +--------+--------+ + + + + Reason [...] obesity | [address] | [address] | | | | | (HCC) Type | [address] | Ave | | | | | 2 diabetes | [place], | [place], [place] | | | | | mellitus | [place] [address] | [address] | | | | | without | Phone: | Phone: | | | | | complication | [phone] | [phone] | | | | | (HCC) | Fax: | Fax: | | | | | Procedures | [phone] | [phone] | | | | | MT EST [...] | 2017 | Visit | Preventive at [facility] | [address] | hypertension | | | | [address] | Ave [facility] [place] | (Primary Dx); Right | | | | Mailcode: CH9A | [address] | heart failure (HCC) | | | | [facility] | [phone] | | | | | and Healing, | | | | | | [address] | | | | | | [place], [place] | | | | | | [address] | | | | | | [phone] | | | +--------+---------+ + + + [...] 1 tablet by mouth once daily CALCIUM CRB&YWL-N7-[id number]-GENIS ORAL Take 2 tablets by mouth two [...] | | 2018 | Visit | | [address] | | | | | | [place], [place] | | | | | | [address] | | | | | | [phone] | | | | | | | | +--------+ + + + + documented as of this encounter Visit Diagnoses + + | Diagnosis | + + | Essential hypertension - Primary | + + | Right heart failure (HCC) Congestive heart failure, unspecified | + + documented in this encounter
--- OUTSIDE RECORDS SUMMARY | ~2019-05-23 | XMS | Encounter Summary ---
Demographics + + + | Address | [address] | | | [place] [address] | + + + | Home Phone [...] + | Katalina Padilla | ECON | [address] | | | | | [place], [place] | | | | | [address] | | + + + + + | Ellie Vang | ECON | Unknown | | + + + + + Care Team Providers + +------+ + | Care Outlet Manager Name | Role | Phone | [...] [id number] | | | | | | [facility] | | | | | | [place], [place] | | | | | | [address] | | | | | | [phone] | | | +--------+ + + + [...] | | | | | [place], [place] | | | | | | [address] | | | | | | [phone] | | | | | | | | +--------+ + + + + documented as of this encounter Visit Diagnoses Not on filedocumented in this encounter"
--- OUTSIDE RECORDS SUMMARY | ~2019-05-23 | XMS | Encounter Summary ---
Demographics + + + | Address | [address] | | | [place] [address] | + + + | Home Phone [...] + | Katalina Padilla | ECON | [address] | | | | | [place], [place] | | | | | [address] | | + + + + + | Ellie Vang | ECON | Unknown | | + + + + + Care Team Providers + +------+ + | Care Evaporator Name | Role | Phone | + +------+ + | Fadi Goodrich DO | PCP | | + +------+ + Encounter Details +--------+ + + + + | Date | Type | Department | Care Team | Description | +--------+ + + + + | 03/16/ | Telephone | Digestive Health | Ronna Clarke, | | | 2017 | | Center at [facility] [address] | ACNP [address] | | | | | [address] | Ave [place], [place] | | | | | Mailcode: Dixie | [address] | | | | | for Health and | [phone] | | | | | [facility] [address] | | | | | | [place], [place] | | | | | | [address] | | | | | | | [...] | | | | | [place], [place] | | | | | | [address] | | | | | | [phone] | | | | | | | | +--------+ + + + + documented as of this encounter Visit Diagnoses Not on filedocumented in this encounter"
--- OUTSIDE RECORDS SUMMARY | ~2019-05-23 | XMS | Encounter Summary ---
Demographics + + + | Address | [address] | | | [place] [address] | + + + | Home Phone [...] + | Katalina Padilla | ECON | [address] | | | | | [place], [place] | | | | | [address] | | + + + + + | Ellie Vang | ECON | Unknown | | + + + + + Care Team Providers + +------+ + | Care Medical Claims Specialist Name | Role | Phone | [...] | | 2019 | | Preventive at [facility] | MD [address] | (PHENTERMINE 37.5 mg | | | | [address] | [place], [place] | oral tablet); | | | | Mailcode: CH | [address] | Refill Request | | | | [facility] | [phone] | | | | | and [place], | | | | | | [address] | | | | | | [place], [place] | | | | | | [address] | | | | | | [phone] | | | +--------+--------+ + + + [...] [place] | | | | | | [address] | | | | | | [phone] | | | | | | | | +--------+ + + + + documented as of this encounter Visit Diagnoses Not on filedocumented in this encounter"
--- OUTSIDE RECORDS SUMMARY | ~2019-05-23 | XMS | Encounter Summary ---
Demographics + + + | Address | [address] | | | [place] [address] | + + + | Home Phone [...] + | Katalina Padilla | ECON | [address] | | | | | [place], [place] | | | | | [address] | | + + + + + | Ellie Vang | ECON | Unknown | | + + + + + Care Team Providers + +------+ + | Care Cad Application Support Specialist Name | Role | Phone [...] from Patient; | | 2017 | | [place] [address] | MD [address] | Postoperative | | | | Ave Mailcode: CH4S | [place], [place] | infection | | | | [facility] | [address] | | | | | and Healing, | [phone] | | | | | [place] [address] [facility] | | | | | | [place], [place] | | | | | | [address] | | | | | | [phone] | | | +--------+ + + + [...] | | | | | [place], [place] | | | | | | [address] | | | | | | [phone] | | | | | | | | +--------+ + + + + documented as of this encounter Visit Diagnoses Not on filedocumented in this encounter"
--- OUTSIDE RECORDS SUMMARY | ~2019-05-23 | XMS | Encounter Summary ---
Demographics + + + | Address | [address] | | | [place] [address] | + + + | Home Phone [...] [place], [place] | | | | | [address] | | + + + + + | Ellie Vang | ECON | Unknown | | + + + + + Care Team Providers + +------+ + | Care Animal Keeper Name | Role | Phone | + [...] | | 2016 | | Preventive at [facility] | MD [address] | | | | | [address] | Ave [place], [place] | | | | | Mailcode: CH9A | [address] | | | | | [facility] | [phone] | | | | | and Healing, | | | | | | [address] | | | | | | [facility] [place] | | | | | | [address] | | | | | | [phone] | | | +--------+ + + + [...] | | | | | [place], [place] | | | | | | [address] | | | | | | [phone] | | | | | | | | +--------+ + + + + documented as of this encounter Visit Diagnoses Not on filedocumented in this encounter"
--- OUTSIDE RECORDS SUMMARY | ~2019-05-23 | XMS | Encounter Summary ---
Demographics + + + | Address | [address] | | | [place] [address] | + + + | Home Phone [...] + | Katalina Padilla | ECON | [address] | | | | | [place], [place] | | | | | [address] | | + + + + + | Ellie Vang | ECON | Unknown | | + + + + + Care Team Providers + +------+ + | Care Lead Sales Consultant Name | Role | Phone | [...] | | | | | | [place] [address] | | | +--------+ + + + [...] [place] | | | | | | [address] | | | | | | [phone] | | | | | | | | +--------+ + + + + documented as of this encounter Visit Diagnoses Not on filedocumented in this encounter"
--- OUTSIDE RECORDS SUMMARY | ~2019-05-23 | XMS | Encounter Summary ---
Demographics + + + | Address | [address] | | | [place] [address] | + + + | Home Phone [...] + | Katalina Padilla | ECON | [address] | | | | | [place], [place] | | | | | [address] | | + + + + + | Ellie Vang | ECON | Unknown | | + + + + + Care Team Providers + +------+ + | Care Service Clerk Name | Role | Phone | [...] | | | | | | [place] [address] | | | +--------+ + + + [...] | | 2019 | Visit | | [address] | | | | | | [place] [facility] [place] | | | | | | [address] | | | | | | [phone] | | | | | | | | +--------+ + + + + documented as of this encounter Visit Diagnoses Not on filedocumented in this encounter"
--- OUTSIDE RECORDS SUMMARY | ~2019-05-23 | XMS | Encounter Summary ---
Demographics + + + | Address | [address] | | | [place] [address] | + + + | Home Phone [...] [place], [place] | | | | | [address] | | + + + + + | Ellie Vang | ECON | Unknown | | + + + + + Care Team Providers + +------+ + | Care Associate Sales Representative Name | Role | Phone | + +------+ + | Fadi Goodrich DO | PCP | | + +------+ + Encounter Details +--------+------+ + + + | Date | Type | Department | Care Team | Description | +--------+------+ + + + | 11/28/ | Lab | Laboratory at [facility] | | Essential | | 2017 | | [address] | | hypertension; Right | | | | [place], [place] | | heart failure (HCC); | | | | [address] | | Type 2 diabetes | | | | [phone] | | mellitus without | | | [...] | | | | | [place], [place] | | | | | | [address] | | | | | | [phone] | | | | | | | [...] of insulin ([facility]) | | + +--------+ + + + | TSH | Routin | 11/28/2016 | Essential | Results for this | | | e | 10:53 AM | hypertension Right | procedure are in the | | | | PDT | heart failure ([facility]) | results section. | | | | [...] | PDT | heart failure ([facility]) | results section. | | | | [...] [facility] | [address] | [place] [address] | | | SERVICES, CORE | CLARENCE [...] | + + + + + | [facility] | [address] | [place], [place] | | | SERVICES, LIPID | [facility] | [address] | | + + + + + HEMOGLOBIN A1C, BLOOD (11/28/2016 10:53 AM PDT) + + + + + + | Component | Value | Ref Range | Performed | Pathologist | | | | | At | Signature | + + + + + + | HEMOGLOBIN | 6.8 (H)Comment: Hgb A1C | <5.7 % | [facility] | | | A1C | Interpretive [...] glycated albumin should be considered for monitoring long term care phlebotomist | LABORATORY | | glycemic control in [...] | + + + + + | [facility] | [address] | [place] [address] | | | SERVICES, SPECIAL | PARK [...] [facility] | [address] | [place] [address] | | | SERVICES, CORE | CLARENCE [...]
--- OUTSIDE RECORDS SUMMARY | ~2019-05-23 | XMS | Encounter Summary ---
Demographics + + + | Address | [address] | | | [place] [address] | + + + | Home Phone [...] + | Katalina Padilla | ECON | [address] | | | | | [place], [place] | | | | | [address] | | + + + + + | Ellie Vang | ECON | Unknown | | + + + + + Care Team Providers + +------+ + | Care Lead Software Architect Name | Role | Phone | [...] | Visit | Preventive at [facility] | [address] | mellitus without | | | | [address] | Ave [place], [place] | complication, with | | | | Mailcode: [facility] | [address] | long-term current | | | | [facility] | [phone] | use of insulin ([facility]) | | | | and Healing, | | (Primary Dx); | | | | [address] | | Chronic right-sided | | | | [place], [place] | | heart failure (HCC) | | | | [address] | | | | | | [phone] | | | +--------+---------+ + + + [...] management of her heart failure by her Clerk Secretary 3) Check A1c, lipids 4) Await bariatric surgery in February 2018 5) Continue phentermine 37.5 mg daily 6) Continue wound care, non-pressure ambulation of right foot wound 7) Follow-up 4-6 months In the interim, the patient underwent bariatric surgery and was discharged from the [facility] on 03/03/2018. Today, the patient reports the [...] 06/23 - She is working with the physician assistant in her office - She is taking [...] tongue once daily., Disp: , Rfl: CALCIUM CRB&BCD-S6-OVQ22-GENIS ORAL, Take 2 tablets by mouth two [...] 3.19 11/28/2016 Lab Results Component Value Date [id number] 88.6 05/27/2018 Lab Results Component Value Date [...] weight of 320lbs. Plan to work with physician assistant from bariatric surgery, identify etio logy of [...] is currently being managed well by her Clerk Secretary with diuretics and mainte nance of her [...] Gissell Clements MD Fellow, Cardiovascular Medicine Pager [phone] signed by Gissell Clements MD at 06/04/2018 [...] | | 2018 | Visit | | [address] | | | | | | [place], [place] | | | | | | [address] | | | | | | [phone] | | | | | | | [...]
--- OUTSIDE RECORDS SUMMARY | ~2019-05-23 | XMS | Encounter Summary ---
Demographics + + + | Address | [address] | | | [place] [address] | + + + | Home Phone [...] + | Katalina Padilla | ECON | [address] | | | | | [place], [place] | | | | | [address] | | + + + + + | Ellie Vang | ECON | Unknown | | + + + + + Care Team Providers + +------+ + | Care Zoning Technician Name | Role | Phone | [...] +--------+---------+ + + + | 11/06/ | Surgery | 6A Intra Op [facility] | Andie Brian MD | repair incarcerated | | 2012 | | [facility] | [address] [facility] | ventral hernia; | | | | Admitting Desk | [address] | possible bowel | | | | Located on the | [place], [place] | resection; | | | | floor [address] [facility] | [address] | | | | | [address] | [phone] | | | | | [place], [place] | | | | | | [address] | | | +--------+---------+ + + + [...] + documented in this encounter Discharge Summaries Jones Mendez, Aminta Colvin - 11/10/2012 2:02 PM PDTFormatting of this [...] yuriy tral hernia. She was transferred from [place] for surgical evaluation of possible incarcer ated [...] Cipro. POD 5 she was discharged ho ri, tolerating a diabetic diet. Having bowel function. [...] yuriy tral hernia. She was transferred from [place] for surgical evaluation of possible incarcer ated [...] Cipro. POD 5 she was discharged ho ri, tolerating a diabetic diet. Having bowel function. [...] keeping you from eating and drinking, Call [phone]. It is important to stay hydrated! If [...] taking narcotic that contain Tylenol (acetaminophen) Example: [place], Lortab, Vicodin, hydrocodone/APAP, Percocet, Tylenol #3 PAIN MEDICATIONS are ONLY REFILLED during CLINIC APPOINTMENTS. Please call [phone] to schedule an appointment. Your Follow-Up Plan Follow up with ROBIN MEJIA in 2 weeks. Contact information: [address] [facility] [address] Vitals on discharge: Ht 154.9 cm (5' [...] might be different f rom the original. [facility]LY [facility], [facility] DEPARTMENT OF SURGERY EMERGENCY GENERAL SURGERY Division [...] without erythema and no infecti on noted. [place] intact : good urine output and Patient [...] clinic - [place]. [place] [phone] pager number [place] [phone] [facility] [address] Aminta Goodwin Md - 11/11/2012 7:40 AM PDT [facility] DEPARTMENT OF SURGERY EMERGENCY GENERAL SURGERY Division of Trauma and Critical Care Attending Physician: Andie Brian MD Progress Note Note Date: 11/11/2012 Admission Date: 11/06/2012 DYLAN ROMERO, [id number] Hospital Day #5 INTERVAL EVENTS none acute [...] ID, Jayne Ponce MD, 1 mg at 11/11/12801 bisacodyl (aka DULCOLAX) suppository 10 mg, 10 mg, Rectal, DAILY PRN, Aminta Wilson MD fuslhuoieb-bombfpjcejdug-cyhhyznw (aka FIORICET) 50-325-40 mg 1 Tab, 1 [...] Aminta Wilson MD, 20 mg at 10/25 03/08 08 FLUoxetine (aka PROZAC) capsule 40 mg, 40 [...] Aminta Wilson MD, 1 Cap at 11/11/12 0803 LORazepam (aka ATIVAN) injection, , , , [...] Yes, lactobacillus Aminta Wilson MD PGY 1 Aminta Goodwin Md - 11/10/2012 10:18 AM PDT EGS PROGRESS NOTE: Attending Physician: Andie Brian MD 11/10/2012 SUBJECTIVE: Reports she is sore, ambulating around room and in the jamison, no n/v, passing flatus, MEDICATIONS: Current facility-administered medications:ALPRAZolam (aka XANAX) tablet 1 mg, 1 mg, Oral, T ID, Jayne Ponce MD, 1 mg at 11/10/12801 rvauhgespq-ieivfviwfipzk-yjxukafg (aka FIORICET) 50-325-40 mg 1 Tab, 1 [...] in preservative free NaCl 0.9% 50 mL CLEANING PROFESSIONAL infusion, , Intravenous, KIESHA NUOUS, Aracely Flores DO, 0.1 mg at 11/10/12 0748 insulin lispro (aka HUMALOG) injection, , Subcutaneous, MEALS and HS, Kaleb Walker, KALYAN ketorolac (aka TORADOL) injection 30 mg, 30 mg, Intravenous, Q6H PRN, Dione Grimes MD, 30 mg at 11/08/12 1024 lactated ringers IV, 125 mL/hr, Intravenous, CONTINUOUS, Aracely Flores DO, Last Rate: 1 25 mL/hr at [...] (aka NARCAN) injection, , Intravenous, PRN, Aracely Flores, DO nystatin (aka MYCOSTATIN) powder, , Topical, [...] HS, Onur Allen MD, 150 mg at 7 OBJECTIVE: Systolic (24hrs), Av mmHg, Min:138 mmHg, [...] nondistended. incision clean/dry/intact, redness receded from ye ster , pink around contreras Drain: DIAMOND drain [...] diet -add bowel regimen Acute pain -HM CLEANING PROFESSIONAL, tylenol -convert to oral pain medication once [...] Fluids: LR 125ml/hr Feeding: NPO Analgesia: Dilaudid CLEANING PROFESSIONAL Sedation: not indicated Thromboprophylaxis: enoxaparin Head of bed: > 30 Ulcer prophylaxis: pepcid Glycemic control: adequate Activity/PT/OT: Ongoing Yogurt: ABX on Probiotics:yes AMINTA WILSON MD General Surgery, R1 Aminta Goodwin Md - 11/09/2012 9:17 AM PDT EGS PROGRESS NOTE: [...] Ponce MD, 1 mg at 11/09/12 0855 siobqgxkzo-hzdtgyeekbaqj-teqwgedt (aka FIORICET) 50-325-40 mg 1 Tab, 1 [...] in preservative free NaCl 0.9% 50 mL CLEANING PROFESSIONAL infusion, , Intravenous, KIESHA NUOUS, Aracely Flores DO, 0.3 mg at 11/09/12 0853 insulin lispro (aka HUMALOG) injection, , Subcutaneous, MEALS and HS, Kaleb Walker, KALYAN ketorolac (aka TORADOL) injection 30 mg, 30 mg, Intravenous, Q6H PRN, Dione Grimes MD, 30 mg at 11/08/12 1024 lactated ringers IV, 125 mL/hr, Intravenous, CONTINUOUS, Aracely Flores DO, Last Rate: 1 25 mL/hr at 11/09/12 [...] (aka NARCAN) injection, , Intravenous, PRN, Aracely Cruzo DO nystatin (aka MYCOSTATIN) powder, , Topical, BID, Danny Lagos MD olanzapine (aka ZYPREXA) tablet 30 mg, 30 mg, Oral, HS, Onur Allen MD, 30 mg at 10/25 ondansetron (aka ZOFRAN) injection 4 mg, 4 mg, Intravenous, Q12H PRN, Danny Lagos MD, 4 mg at 11/06/122019 potassium & sodium phosphates (aka NEUTRA-PHOS, PHOS-NAK) 280-160-250 mg packet 2 Packet, 2 Packet, Oral, ONCE, Aminta Wilson MD potassium chloride IV 40 mEq, 40 mEq, Intravenous, BID, Aminta Wilson MD, 40 mEq at 0900 promethazine (aka PHENERGAN) injection 12.5 mg, 12.5 mg, Intravenous, Q4H PRN, Dione contreras MD, 12.5 mg at 11/07/12 160 torsemide (aka DEMADEX) tablet 40 mg, 40 mg, Oral, BID ( and ), Jayne Ponce MD, 4 0 mg at 11/09/12 0855 traZODone (aka DESYREL) tablet 150 mg, 150 mg, Oral, HS, Onur Allen MD, 150 mg at 2121 trimethoprim-sulfamethoxazole (aka BACTRIM DS,SEPTRA DS) 160-800 mg [...] drainage <30ml for 24hrs Acute pain -HM CLEANING PROFESSIONAL, tylenol Diabetes: -insulin gtt not started due [...] Fluids: LR 125ml/hr Feeding: NPO Analgesia: Dilaudid CLEANING PROFESSIONAL Sedation: not indicated Thromboprophylaxis: enoxaparin Head of bed: > 30 Ulcer prophylaxis: pepcid Glycemic control: adequate Activity/PT/OT: Ongoing Yogurt: ABX on Probiotics:yes AMINTA WILSON MD General Surgery, R1 aleb Walker S, N P - 11/08/2012 8:49 AM PDT [facility] DEPARTMENT OF SURGERY EMERGENCY GENERAL SURGERY Division of Trauma and Critical Care Attending Physician: Andie Brian MD Progress Note Note Date: 11/08/2012 Admission Date: 11/06/2012 DYLAN ROMERO, [id number] Hospital Day #2 INTERVAL EVENTS NO SUBJECTIVE Pain well controlled; has headache attributed to dilaudid CLEANING PROFESSIONAL Tylenol did not help. Flatus: YES Tolerating [...] trials today. -DC ruiz Acute pain -HM CLEANING PROFESSIONAL, tylenol Diabetes: -insulin gtt not started due [...] Fluids: LR 125ml/hr Feeding: NPO Analgesia: Dilaudid CLEANING PROFESSIONAL Sedation: not indicated Thromboprophylaxis: enoxaparin Head of bed: > 30 Ulcer prophylaxis: pepcid Glycemic control: adequate Activity/PT/OT: Ongoing Yogurt: ABX on Probiotics: No KALEB WALKER NP [facility] [address] [place] [facility] elvin Stephens MD - 11/07/2012 9:51 PM PDT Trauma / Surgical Critical Care Service - Progress Note Name: DYLAN ROMERO Date: 11/07/2012 Time: 9:52 PM Author: DIONE GRIMES MD HPI: 37 y.o. y/o female admitted on 11/06/2012 4:10 AM and hospital day 1 with below chasidy nt issues. Patient Active Problem List Diagnoses [...] Recent Labs Chemistries Recent Labs Basename 11/07/12 18211/07/12 0030 11/06/12 1550 11/06/12 0628 NA -- [...] 7.33* PCO2 49* PO2 113* HCO3 25 KSNZM8LLX 26 N1CKJONO 98.3* [id number] -- FIO2 60 ABGEXCESS -0.9 Assessment, Medical Decision Making and Plan 1. Incarcerated hernia, now s/p repair and panniculectomy -Binder, pain control, minimize nausea and coughing PRN. -NG clamping trials today. 2. Acute pain -HM CLEANING PROFESSIONAL, tylenol 3. Diabetes: -insulin gtt 4. Morbid [...] Dione Grimes MD R-2, General Surgery Pager: [phone] [facility] [place] Department of Surgery Trauma ICU Team Pager (24hrs/day): [phone] I was present with the resident during the history and exam. I discussed the case with the resident and agree with the findings and plan as documented in the resident s note. KELVIN STEPHENS MD [facility] [address] [facility] [facility] [address] [place] [address] [id number] Onur Graves MD - 11/07/2012 2:37 AM PDT EMERGENCY [...] solution 2.5 mg 2.5 mg Inhalation Q4H PRLoretta Lagos MD artificial tears (hypromellose) (aka NATURES [...] in preservative free NaCl 0.9% 50 mL CLEANING PROFESSIONAL infusion Intravenous CON TINUOUS Aracely Flores, DO [...] at 11/06/12 2353 Assessment & Plan: Dylan Romreo is a 37 y.o. Morbidly obese female who presented with an incarcerated vent ral hernia who is now POD#1 s/p primary repair. 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 taxicab driver and prn tylenol, continue prozac and zyprexa [...] F: probable remain NPO today A: dilaudid taxicab driver, prn tylenol S: prn benzos as she is at home T: will start prophylactic lovenox today H: HOB >30 degrees U: pepcid G: insulin gtt ONUR ALLEN MD, PGY3 [place] [address] [facility] [facility]s8[address] [place] [address] Onelia Shrestha MD - 11/06/2012 8:41 AM PDT [facility] DEPARTMENT OF SURGERY Division of Trauma and Critical Care Emergency General Surgery / Acute Care Surgery Attending Physician: Andie Brian MD Note Date: 11/06/2012 Admission Date: 11/06/2012 DYLAN ROMERO, [id number] Hospital Day #0 OVERNIGHT EVENTS: anxious SUBJECTIVE: [...] to palpation, chronic RLQ abdominal wound. Ext: wwp LABS: reviewed and are available [facility] (if new data) IMAGING: VASCULAR: IMPRESSION: Dylan [...] [place] | | | | | | [address] | | | | | | [phone] | | | | | | | [...] Mae | | | | | | Cowen | | | | + + + [...] + | [facility] | [address] | [place], [place] | | | [facility] | [facility] | [address] | | | TESTS | | | | + + + + + CAPILLARY BLOOD GLUCOSE (NO CHG)VALERIE (11/12/2012 9:08 AM PDT) + +---------+ + [...] | [facility] | [address] | [place], [place] | | | [place]INT OF CARE | [facility] | [address] | | | TESTS | | | [...] [facility] | [address] | [place] [address] | | | SERVICES, CORE | PARK [...] | | | LABORATORY | | | MAURITANIAN | | | SERVICES, | | | [...] [facility] | [address] | [place] [address] | | | SERVICES, CORE | [address] | | | + + + + + MAGNESIUM, PLASMA (11/12/2012 3:56 AM PDT) + +-------+ + + + | Component | Value | Ref Range | Performed | Pathologist | | | | | At | Signature | + +-------+ + + + | MAGNESIUM,P | 1.8 | 1.8 - 2.5 mg/dL | [facility] [...] + + + | [facility] | [address] | [place] [address] | | | LYDIA RANGEL | CLARENCE [...] - [facility] | [address] | [place], [place] | | | [facility] DAWN OF CARE | [facility] | [address] | | | TESTS | | | [...] (H) | 60 - 99 mg/dL | [facility] - | | | GLUCOSE, | | [...] [facility] | [address] | [place], [place] | | | [facility]WN OF CARE | [facility] | [address] | | | TESTS | | | | + + + + + CAPILLARY BLOOD GLUCOSE (NO CHG), POC (11/11/2012 1:51 PM PDT) + +---------+ [...] [facility] | [address] | [place], [place] | | | [facility] [place] | [address] | [address] | | | TESTS | | | [...] - [facility] | [address] | [place], [place] | | | JUST[facility] DAWN OF CARE | [facility] | [address] | | | TESTS | | | [...] (H) | 60 - 99 mg/dL | [facility] - | | | GLUCOSE, | | [...] [facility] | [address] | [place], [place] | | | [place] POINT OF CARE | [address] | [address] | | | TESTS | | | [...] | [facility] | [address] [facility] | [place] [address] | | | SERVICES, CORE | CLARENCE [...] | | | LABORATORY | | | MAURITANIAN | | | SERVICES, | | | [...] the MDRD equation recommended by the | [facility] | | National Kidney Disease Education Program. [...] + + + | [facility] | [address] [facility] | [place] [address] | | | CLAIRE, LYDIA | CLARENCE [...] + + + | [facility] | [address] | [place] [address] | | | SERVICES, CORE | CLARENCE [...] (H) | 60 - 99 mg/dL | [facility] - | | | GLUCOSE, | | [...] [facility] | [address] | [place], [place] | | | [facility]WN OF CARE | [address] | [address] | | | TESTS | | | [...] [facility] | [address] | [place], [place] | | | [facility] [place] | [address] | [address] | | | TESTS | | | [...] [facility] | [address] | [place] | | | [place] POINT OF CARE | [address] | [address] | | | TESTS | | | [...] [facility] | [address] | [place] | | | JUSTINE DAWN OF CARE | [address] | [address] | | | TESTS | | | [...] [facility] | [address] | [place], [place] | | | JUST[facility]WN [facility] [place] | [facility] | [address] | | | TESTS | | | [...] [facility] | [address] | [place] [address] | | | SERVICES, CORE | CLARENCE [...] | | | LABORATORY | | | MAURITANIAN | | | SERVICES, | | | [...] [facility] | [address] | [place] [address] | | | SERVICES, CORE | PARK [...] [facility] | [address] | [place] [address] | | | SERVICES, CORE | CLARENCE [...] [facility] | [address] | [place] | | | JUSTINE DAWN OF CARE | [address] | [address] | | | TESTS | | | [...] [facility] | [address] | [place], [place] | | | JUSTINE DAWN OF CARE | [facility] | [address] | | | TESTS | | | [...] [facility] | [address] | [place], [place] | | | JUSTINE DAWN OF CARE | [address] | [address] | | | TESTS | | | [...] | | | Final CULTURE | | [place] | | | | RESULT:>100,000 cfu/ml | [...] + | [facility] | [address] | [place] [address] | | | [place] | | | | + + + + + UA, DIPSTICK ONLY (11/09/2012 6:57 AM PDT) + + [...] [facility] | [address] | [place] [address] | | | SERVICES, CORE | CLARENCE [...] + + + | [facility] | [address] | [place] [address] | | | CLAIRE, [facility] | [address] | | | + + + + + CAPILLARY BLOOD GLUCOSE (NO CHG), POC (11/09/2012 6:10 AM PDT) + +-------+ + + + | Component | Value | Ref Range | Performed | Pathologist | | | | | At | Signature | + +-------+ + + + | BLOOD | 90 | 60 - 99 mg/dL | [facility] - | | | GLUCOSE, | | [...] [facility] | [address] | [place], [place] | | | JUSTINE DAWN OF CARE | [facility] | [address] | | | TESTS | | | [...] | | | LABORATORY | | | MAURITANIAN | | | SERVICES, | | | [...] the MDRD equation recommended by the | VASU | | National Kidney Disease Education Program. [...] + + + | [facility] | [address] | [place] [address] | | | CLAIRE, [facility] | [address] | | | + [...] [facility] | [address] | [place] [address] | | | SERVICES, CORE | PARK [...] + + + | [facility] | [address] | [place] [address] | | | SERVICES, CORE | CLARENCE [...] 86 | 60 - 99 mg/dL | [facility] - | | | GLUCOSE, | | [...] + + + | [facility] | [address] | [place], [place] | | | [place] [facility] | [address] | [address] | | | TESTS | | | [...] [facility] | [address] | [place], [place] | | | JUSTINE DAWN OF CARE | [address] | [address] | | | TESTS | | | | + + + + + CAPILLARY BLOOD GLUCOSE (NO CHG), POC (11/08/2012 12:09 PM PDT) + +-------+ + + + | Component | Value | Ref Range | Performed | Pathologist | | | | | At | Signature | + +-------+ + + + | BLOOD | 97 | 60 - 99 mg/dL | [facility] [...] + | [facility] | [address] | [place], [place] | | | [facility] [facility] | [facility] | [address] | | | TESTS | | | [...] + + + | [facility] | [address] | [place] [address] | | | SERVICES, CORE | [address] | | | + + + + + MAGNESIUM, PLASMA (11/08/2012 7:48 AM PDT) + +---------+ + + + | Component | Value | Ref Range | Performed | Pathologist | | | | | At | Signature | + +---------+ + + + | MAGNESIUM,P | 1.4 (L) | 1.8 - 2.5 mg/dL | [facility] | | | LASMA | | | [...] | [facility] | [address] | [place] [address] | | | SERVICES, CORE | CLARENCE [...] | | | LABORATORY | | | MAURITANIAN | | | SERVICES, | | | [...] + + + | [facility] | [address] | [place] [address] | | | LYDIA RANGEL | CLARENCE [...] - [facility] | [address] | [place] | | | L[place] POINT OF CARE | [address] | [address] | | | TESTS | | | [...] [facility] | [address] | [place] | | | L[place] POINT OF CARE | [address] | [address] | | | TESTS | | | [...] [facility] | [address] | [place] | | | JUSTINE DAWN OF CARE | [address] | [address] | | | TESTS | | | [...] + + | [facility] | [address] [facility] | [place] [address] | | | SERVICES, CORE | PARK [...] [facility] | [address] | [place] [address] | | | SERVICES, CORE | PARK [...] | | | LABORATORY | | | MAURITANIAN | | | SERVICES, | | | [...] [facility] | [address] | [place] [address] | | | SERVICES, CORE | [address] | | | + + + + + X-RAY PORTABLE CHEST 1 VIEW (11/06/2012 4:46 PM PDT) + + + + + + | Component | Value | Ref Range | Performed | Pathologist | | | | | At | Signature | + + + + + + | X-RAY | STUDY: [place] CHEST 1 VIEW | | | | | PORTABLE | 11/06/12 16:46:00 | | | | | CHEST 1 | INDICATION: Right upper | | | | | VIEW | lobe opacity. | | | | | | COMPARISON: Earlier same | | | | | | day a STUDY: [place] CHEST 1 | | | | | [...] | | + +---------+ + + | [facility] DEPARTMENT OF | | | | | RADIOLOGY | | | | + +---------+ + + X-RAY PORTABLE CHEST 1 VIEW (11/06/2012 4:30 PM PDT) + + + + + + | Component | Value | Ref Range | Performed | Pathologist | | | | | At | Signature | + + + + + + | X-RAY | STUDY: [place] CHEST 1 VIEW | | | | [...] | | + +---------+ + + | [facility] DEPARTMENT OF | | | | | [...] [facility] | [address] | [place] [address] | | | SERVICES, CORE | PARK [...] | | | LABORATORY | | | MAURITANIAN | | | SERVICES, | | | [...] + + + | [facility] | [address] | [place] [address] | | | CLAIRE, LYDIA | PARK [...] [facility] | [address] | [place] [address] | | | SERVICES, CORE | CLARENCE [...] [facility] | [address] | [place], [place] | | | [facility] [place] | [address] | [address] | | | TESTS | | | | + + + + + ABVALERIE GONZALEZ (11/06/2012 1:03 PM PDT) + + + [...] [facility] | [address] | [place], [place] | | | JUSTINE DAWN OF CARE | [address] | [address] | | | TESTS | | | | + + + + + LACTATE (ART), POC NOAM (11/06/2012 11:08 AM PDT) + +-------+ + [...] [facility] | [address] | [place], [place] | | | [facility] OF [place] | [facility] | [address] | | | TESTS | | | [...] [facility] | [address] | [place] | | | JUST[facility] OF [facility] | [address] | [address] | | | TESTS | | | | + + + + + POTASSIUM (ART), POC SOR (11/06/2012 11:08 AM PDT) [...] [facility] | [address] | [place] | | | JUST[place]WN OF J[place]Y | [facility] | [address] | | | TESTS | | | [...] [facility] | [address] | [place], [place] | | | JUSTINE DAWN OF CARE | [facility] | [address] | | | TESTS | | | [...] [facility] | [address] | [place], [place] | | | JUST[facility]WN OF [place] | [facility] | [address] | | | TESTS | | | | + + + + + CALCIUM (ART), POC SOR (11/06/2012 11:08 AM PDT) [...] [facility] | [address] | [place] | | | [place] POINT OF CARE | [address] | [address] | | | TESTS | | | [...] | | IN, POC | | | [facility] | | [...] [facility] | [address] | [place] | | | JUSTINE DAWN OF CARE | [facility] | [address] | | | TESTS | | | [...] [facility] | [address] | [place] | | | [place] POINT OF CARE | [address] | [address] | | | TESTS | | | [...] [facility] | [address] | [place] | | | [facility] [facility] [place] | [address] | [address] | | | TESTS | | | [...] + + + | [facility] | [address] | [place] [address] | | | SERVICES, | [address] [...] (H) | 60 - 99 mg/dL | [facility] | | | GLUCOSE, | | [...] [facility] | [address] | [place] | | | JUST[facility]WN OF [place] | [facility] | [address] | | | TESTS | | | [...] [facility] | [address] | [place] [address] | | | SERVICES, | [address] [...] [facility] | [address] | [place] [address] | | | SERVICES, | [address] [...] [facility] | [address] | [place] [address] | | | SERVICES, LYDIA | CLARENCE [...] [facility] | [address] | [place] [address] | | | SERVICES, LYDIA | PARK [...] [facility] | [address] | [place] [address] | | | SERVICES, CORE | PARK [...] [facility] | [address] | [place] [address] | | | SERVICES, CORE | PARK [...] | | | LABORATORY | | | MAURITANIAN | | | SERVICES, | | | [...] recommended by the | [facility] | | National Kidney Disease Education Program. [...] [facility] | [address] | [place] [address] | | | LYDIA RANGEL | CLARENCE [...] view image for the detailed interpretation from [employer] results. | CARDIOLOGY | + + + + + + + + | Performing | Address | City/State/Zipcode | Phone Number | | Organization | | | | + + + + + | [facility] | [address] | [place], [place] | | | CARDIOLOGY | [facility] | [id number] | | + + + + + [...] [facility] | [address] | [place] [address] | | | SERVICES, CORE | [address] | | | + + + + + UAMADAY ONLY (11/06/2012 4:51 AM PDT) + + [...] [facility] | [address] | [place] [address] | | | SERVICES, LYDIA | [address] | | | + + + + + documented in this encounter Visit Diagnoses + + | Diagnosis | + + | Incarcerated ventral hernia Ventral hernia, unspecified, with obstruction | + + documented in this encounter
--- OUTSIDE RECORDS SUMMARY | ~2019-05-23 | XMS | Encounter Summary ---
Demographics + + + | Address | [address] | | | [place] [address] | + + + | Home Phone [...] [place], [place] | | | | | [address] | | + + + + + | Ellie Vang | ECON | Unknown | | + + + + + Care Team Providers + +------+ + | Care Rug Cutter Name | Role | Phone | [...] | [address] | Ave [place], [place] | | | | | Mailcode: CH9A | [phone] | | | | | [facility] | [phone] | | | | | [facility], | | | | | | [address] | | | | | | [place], [place] | | | | | | [address] | | | | | | [phone] | | | +--------+ + + + [...] [place] | | | | | | [address] | | | | | | [phone] | | | | | | | | +--------+ + + + + documented as of this encounter Visit Diagnoses Not on filedocumented in this encounter"
--- OUTSIDE RECORDS SUMMARY | ~2019-05-23 | XMS | Encounter Summary ---
Demographics + + + | Address | [address] | | | [place] [address] | + + + | Home Phone [...] [place], [place] | | | | | [address] | | + + + + + | Ellie Vang | ECON | Unknown | | + + + + + Care Team Providers + +------+ + | Care Box Order Person Name | Role | Phone | [...] | | 2014 | | Center at [facility] [address] | [facility] [address] | Review (Pre-surgery | | | | [address] | [address] [place], [place] | meal plan. To be | | | | Mailcode: Center | [id number] | provided to home | | | | for Health and | | health nurse. ) | | | | [facility], [address] | | | | | | [place], [place] | | | | | | [address] | | | | | | | [...] | | | | | [address] [place], [place] | | | | | | [address] | | | | | | [phone] | | | | | | | | +--------+ + + + + documented as of this encounter Visit Diagnoses Not on filedocumented in this encounter"
--- OUTSIDE RECORDS SUMMARY | ~2019-05-23 | XMS | Clinical Summary ---
Demographics + + + | Address | [address] | | | [place] [address] | + + + | Home Phone [...] [place], [place] | | | | | [address] | | + + + + + | Ellie Vang | ECON | Unknown | | + + + + + Care Team Providers + +------+ + | Care Reverberatory Furnace Supervisor Name | Role | Phone | + +------+ + | Kenyatta Hylton MD | PCP | | + +------+ + Source Comments NKECHI is fully live on both EpicCare Ambulatory and EpicCare InPatient.[facility] Allergies + + + + + + | Active Allergy | Reactions | Severity | Noted | Comments | | | | | Date | | + + + + + + | Amoxicillin | Hives | | 05/13/19 | | | | | | 93 | | + + + + + + | Diphenhydramine Hcl | Hives, Throat | | 10/08/19 | | | | Swelling [...] 0 | | | Activ | | [id number]&VDS-G8-[id number]-GEN | mouth two times | | | | | e | | IS ORAL | daily. | | | | | | + + + +---------+------+------+-------+ | aspirin EC 81 mg | Take 81 mg by mouth | | 0 | | | Activ | | oral tablet,delayed | once daily. | | | | | e | | release (DR/EC) | | | | | | | + + + +---------+------+------+-------+ | atenolol 50 mg | Take 50 mg by mouth | | 0 | 11/ | | Activ | | oral tablet | once daily at | | | 02/12 | | e | | | bedtime. | | | 17 | | | + + + +---------+------+------+-------+ | torsemide 100 mg | Take 100 mg by mouth | | 0 | 08/0 | | Activ | | oral tablet | two times daily. | | | 02/12 | | e | | | Resume half dose for | | | 18 | | | | | first week post | | | | | | | | opertative | | | | | | [...] | | Activ | | (STOOL SOFTENER | mouth. Equate brand | | | | | e | | ORAL) | per patient | | | | | | + + + +---------+------+------+-------+ | promethazine 25 mg | Take 0.5 tablets by | 60 | 2 | 11/0 | | Activ | | oral | mouth four times | tablet | | 1/20 | | e | | tabletIndications: | daily as needed for | | | 18 | | | | post-operative | nausea/vomiting. | | | | | | | nausea and vomiting | Indications: | | | | | | | | Post-Operative | | | | | | | | Nausea and Vomiting | | | | | | + [...] + | | Additional | | | informationPatient | | | taking differently: | | | 50,000 Units oral | | | EVERY THU, Reason: | | | See Comments, | | | Reported on | | | 05/14/2019 2:10 AM | +---+ + + + +--------+---+------+---+-------+ | lurasidone | Take 40 mg by mouth | | 0 | | | Activ | | (LATUDA) 20 mg oral | once daily at | | | | | e | | tablet | bedtime. | | | | | | + + +--------+---+------+---+-------+ | pramipexole 0.125 | Take 0.25 mg by | | 0 | | | Activ | | mg oral tablet | mouth once daily at | | | | | e | | | bedtime. | | | | | | + + +--------+---+------+---+-------+ | potassium chloride | Take 40 mEq by mouth | | 0 | | | Activ | | 20 mEq oral packet | two times daily. | | | | | e | + + +--------+---+------+---+-------+ | ascorbic acid | Take 1 tablet by | 90 | 1 | 03/2 | | Activ | | (vitamin C) (VITAMIN | mouth once daily. | tablet | | 6/20 | | e | | C) 500 mg oral | | | | 19 | | | | tablet | | | | | | | + + +--------+---+------+---+-------+ | Ferrous Gluconate | Take 1 tablet by | 90 | 1 | 03/2 | | Activ | | 324 mg total salt | mouth once daily. | tablet | | 6/20 | | e | | (36 mg elemental | | | | 19 | | | | iron) oral tablet | | | | | | | + + +--------+---+------+---+-------+ | topiramate 50 mg | Take 1 tablet by | 360 | 3 | 06/ | | Activ | | oral tablet | mouth two times | tablet | | /20 | | e | | | daily. May increase | | | 19 | | | | | by 1 tab twice daily | | | | | | | | every 2 weeks, as | | | | | | | | tolerated. Max dose | | | | | | | | is 2 tabs twice | | | | | | | | daily. | | | | | | + + +--------+---+------+---+-------+ +---+ + | | Additional | | | informationPatient | | | taking differently: | | | 100 mg oral TWICE | | | DAILY, May increase | | | by 1 tab twice daily | | | every 2 weeks, as | | | tolerated. Max dose | | | is 2 tabs twice | | | daily., Indications: | | | Essential Tremor, | | | Reason: See | | | Comments, Reported | | | on 05/14/2019 2:10 | | | AM | +---+ + + + +--------+---+------+---+-------+ | phentermine 37.5 | Take 1 tablet by | 90 | 1 | 01/25 | | Activ | | mg oral tablet | mouth once daily in | tablet | | 10/13 | | e | | | the morning. | | | 19 | | | | | Administer before | | | | | | | | breakfast. | | | | | | + + +--------+---+------+---+-------+ | fentaNYL 12 mcg/hr | Apply 1 patch to | | 0 | | | Activ | | transdermal patch | skin every | | | | | e | | | seventy-two hours. | | | | | | | | Please remove old | | | | | | | | patch prior to | | | | | | | | placing a new one. | | | | | | + + +--------+---+------+---+-------+ | doxycycline | Take 100 mg by mouth | | 0 | | | Activ | | hyclate 100 mg oral | every twelve hours. | | | | | e | | tablet | (Pharmacist to | | | | | | | | substitute salt form | | | | | | | | as needed) | | | | | | + + +--------+---+------+---+-------+ | ALPRAZolam 1 mg | Take 1 mg by mouth | | 0 | | | Activ | | oral tablet | twice daily as | | | | | e | | | needed. | | | | | | + + +--------+---+------+---+-------+ | multivitamin oral | Take 1 tablet by | | 0 | | | Activ | | tablet | mouth once daily. | | | | | e | + + +--------+---+------+---+-------+ | cyanocobalamin | Take 1,000 mcg by | | 0 | | | Activ | | 1,000 mcg oral | mouth once daily. | | | | | e | | tablet | | | | | | | + + +--------+---+------+---+-------+ | meclizine 12.5 mg | Take 12.5 mg by | | 0 | | | Activ | | oral tablet | mouth twice daily as | | | | | e | | | needed | | | | | | | | (dizziness/vertigo). | | | | | | + + +--------+---+------+---+-------+ | metoclopramide HCl | Take 10 mg by mouth | | 0 | | | Activ | | 10 mg oral tablet | every six hours as | | | | | e | | | needed for | | | | | | | | nausea/vomiting. | | | | | | + + +--------+---+------+---+-------+ | multivitamin with | Take 1 tablet by | | 0 | | | Activ | | minerals (HAIR,SKIN | mouth once daily. | | | | | e | | AND NAILS ORAL) | | | | | | | + + +--------+---+------+---+-------+ | nystatin 100,000 | Apply to affected | 15 g | 0 | 10/1 | | Activ | | unit/gram topical | area two times | | | 9/20 | | e | | powderIndications: | daily. Apply to | | | 19 | | | | soft tissue | candidal lesions | | | | | | | infection | until lesions have | | | | | | | | healed. Indications: | | | | | | | | skin infection | | | | | | + + +--------+---+------+---+-------+ | acetaminophen 500 | Take 2 tablets by | | 0 | 10/1 | | Activ | | mg oral tablet | mouth every six | | | 9/20 | | e | | | hours as needed for | | | 19 | | | | | mild pain. | | | | | | + + +--------+---+------+---+-------+ | oxyCODONE | Take 1-2 tablets by | 40 | 0 | 10/1 | | Activ | | (immediate release) | mouth every six | tablet | | 9/20 | | e | | 5 mg oral tablet | hours as needed for | | | 19 | | | | | moderate pain | | | | | | | | (unresponsive to | | | | | | | | non-opioid | | | | | | | | medication). | | | | | | + + +--------+---+------+---+-------+ | polyethylene | Mix 1 packet and | | 0 | 10/1 | | Activ | | glycol 17 gram oral | take orally once | | | 9/20 | | e | | powder in packet | daily. | | | 19 | | | + + +--------+---+------+---+-------+ | senna (SENNA LAX) | Take 1 tablet by | | 0 | 04/26 | | Activ | | 8.6 mg oral tablet | mouth once daily. | | | 04/15 | | e | | | | | | 19 | | | + + +--------+---+------+---+-------+ Active Problems + + + | Problem | Noted Date | + + + | History of Frandy-en-Y gastric bypass | 03/10/2018 | + + + | Impaired intestinal absorption | 03/10/2018 | + + + | Morbid obesity with BMI of 70 and over, adult | 02/02/2017 | + + + | [...] Diabetes mellitus type 2 without retinopathy | 02/02/2017 | + + + | [...] + | Type 2 diabetes mellitus | 04/14/2013 | + + + | [...] | | Phentermine started | + + + + + | Hernia | 11/05/2012 | + + + | Hypothyroidism | | + + + Resolved Problems + + + + | Problem | Noted | Resolved | | | Date | Date | + + + + | Acute post-operative pain | 03/02/20 | | | | 18 | 8 | + + + + | AMARA [...] | +--------+ + + + + | 05/20/ | Telephone | Surgery | Analisa Woo | | 2018 | | | MD Jorje | | +--------+ + + + + | 05/14/ | Pharmacy | | | | | 2018 | Visit | | | | +--------+ + + + + | 05/13/ | Emergency | Emergency Medicine | Nay Joe | | | 2018 - | | | MD Jordy | | | | | | | | | 05/14/ | | | | | | 2018 | | | | | +--------+ + + + + | 05/13/ | Office | Plastic Surgery | Archie Ybarra MD | Excess skin of | | 2019 | Visit | | | abdomen (Primary Dx) | +--------+ + + + + | 05/13/ | Travel | | | | | 2018 | | | | | +--------+ + + + + | 05/05/ | Office | Surgery | Chilo | Ventral hernia | | 2019 | Visit | | MD Jorje | without obstruction | | | | | | or gangrene (Primary | | | | | | Dx) | +--------+ + + + + | 05/05/ | Travel | | | | | 2018 | | | | | +--------+ + + + + | 04/07/ | Hospital | | Tal Mcneil | | | 2019 | Encounter | | MD Barb | | +--------+ + + + + | 04/07/ | Travel | | | | | 2018 | | | | | +--------+ + + + + | 04/05/ | Abstract | Surgery | Clinic, Surgery | Medical Records | | 2019 | | | | Review | +--------+ + + + + | 04/01/ | Telephone | Surgery | Keren Allen, | Treatment Planning | | 2018 | | | AGACNP | | +--------+ + + + + | 03/22/ | Hospital | Radiology | Keren Allen, | | | 2018 | Encounter | | AGACNP | | +--------+ + + + + | 03/22/ | Travel | | | | | 2018 | | | | | +--------+ + + + + | 03/18/ | Transcribe | Gastroenterology | Transcribe | | | 2018 | Orders | | Sixto Provider, | | | | | | MD | | +--------+ + + + + | 03/15/ | Telephone | Surgery | Keren Allen, | | | 2019 | | | AGACNP | | +--------+ + + + + | 03/08/ | Hospital | Radiology | Keren Allen, | | | 2019 | Encounter | | AGACNP | | +--------+ + + + + | 03/08/ | Travel | | | | | 2019 | | | | | +--------+ + + + + | 03/03/ | Documentati | Gastroenterology | Lab, Gi Procedure | Medical Records | | 2019 | on | | | Review | +--------+ + + + + | 03/02/ | Quality Control Assessor | Surgery | Keren Allen, | | | 2019 | | | AGACNP | | +--------+ + + + + | 03/01/ | Office | Surgery | Keren Allen, | History of Frandy-en-Y | | 2019 | Visit | | AGACNP | gastric bypass | | | | | | (Primary Dx); Nausea | | | | | | and vomiting, | | | | | | intractability of | | | | | | vomiting not | | | | | | specified, | | | | | | unspecified vomiting | | | | | | type; Diarrhea, | | | | | | unspecified type; | | | | | | Inadequate oral | | | | | | intake; Dehydration | +--------+ + + + + | 03/01/ | Procedure | Radiology | | | | 2019 | Pass | | | | +--------+ + + + + | 03/01/ | Travel [...] | | 2019 | Visit | | [address] | | | | | | [place], [place] | | | | | | [address] | | | | | | [phone] | | | | | | | | +--------+ + + + + + + + + + | Health Maintenance | Due Date | Last Done | Comments | + + + + + | Monofilament foot | | | | | exam | 7 | | | + + + + + | Diabetic eye exam | | | | | | 7 | | | + + + + + | Medical attention | | | | | for nephropathy | 7 | | | + + + + + | Hemoglobin A1c | | 05/27/2018, 02/22/2018, | | | | 9 | 11/20/2017, Additional history | | | | | exists | | + + + + + | Influenza (Flu) | | 04/27/2018, 06/04/2017, | | | vaccination (#1) | 9 | 04/16/2016, Additional history | | | | | exists | | + + + + + | Diabetes | | 05/27/2018, 04/01/2018, | | | self-management | 9 | 03/10/2018, Additional history | | | education | | exists | | + + + + + | Creatinine | | 05/14/2019, 05/13/2019, | | | | 0 | 03/01/2019, Additional history | | | | | exists | | + + + + + | Cholesterol | | 05/27/2018, 11/20/2017, | | | screening | 3 | 11/28/2016 | | + + + + + | Pneumococcal | Completed | 08/07/2015 | | | vaccination | | | | + + + [...] - | | | | | | /[id number] | | [id number]: Qty: 1 on | | | | [...] - | | | | | | /[id number] | | [id number]: Qty: 1 on | | | | | | 173 | | 03/01/2018 by Ion Panedy | | | | | | | | MD Vinicius at [facility] INPATIENT REV | | | | | | | | LOC | | | | | | | + +------+------+ +--------+--------+--------+ Procedures + +--------+ + + + | [...] +--------+ + + + | X-RAY UGI WO JOSÉ LUISB | Routin | 03/22/2019 | History of [...] | | e | 2:41 PM | Frandy-en-Y gastric | procedure are [...] | | e | 2:41 PM | Frandy-en-Y gastric | procedure are [...] | | e | 2:41 PM | Frandy-en-Y gastric | procedure are [...] SERUM | e | 2:41 PM | Frandy-en-Y gastric | procedure are [...] | | e | 2:41 PM | Frandy-en-Y gastric | procedure are [...] BLOOD | e | 2:41 PM | Frandy-en-Y gastric | procedure are [...] | | e | 2:41 PM | Frandy-en-Y gastric | procedure are [...] | | e | 2:41 PM | Frandy-en-Y gastric | procedure are [...] SERUM | e | 2:41 PM | Frandy-en-Y gastric | procedure are [...] | | e | 2:41 PM | Frandy-en-Y gastric | procedure are [...] | | e | 2:41 PM | Frandy-en-Y gastric | procedure are [...] PLASMA | e | 2:41 PM | Frandy-en-Y gastric | procedure are [...] | | e | 2:41 PM | Frandy-en-Y gastric | procedure are [...] | | e | 2:41 PM | Frandy-en-Y gastric | procedure are [...] SET | e | 2:41 PM | Frandy-en-Y gastric | procedure are [...] | | e | 2:41 PM | Frandy-en-Y gastric | procedure are [...] | | + +--------+ + + + from Last 3 Months Results CAPILLARY BLOOD GLUCOSE (NO CHG), POC [...] + + + + | [facility] | [address] | [place], [place] | | | [facility] | [facility] | [address] | | | TESTS | | | | + + + + + CBC (HEMOGRAM) ONLY (05/14/2019 4:33 AM PDT)Only the most recent of 2 results within the period is included. + + + + + + | [...] | + + + + + | [facility] | [address] | [place] [address] | | | SERVICES, CORE | [address] | | | + + + + + COMPLETE METABOLIC SET (NA,K,CL,CO2,BUN,CREAT,GLUC,CA,AST,ALT,BILI TOTAL,ALK PHOS,ALB,PROT TOTAL) (05/14/2019 4:33 AM PDT)Only the most recent of 3 results within the time period is included. + +---------+ + + + | Component [...] | + + + + + | [facility] | [address] | [place] [address] | | | SERVICES, CORE | [address] [...] 10 x 5 cm | | | (1/100). There is an additional small ventral hernia measuring about 3 | | | cm containing a nondilated loop of small bowel (1/131). LYMPH | | | NODES: Multiple prominent [...] nondilated loop of small bowel | | (1131). LYMPH NODES: Multiple prominent left mid abdomen [...] | + + + + + | [facility] | [address] | [place] [address] | | | SERVICES, CORE | [address] [...] [facility] | [address] | [place] [address] | | | SERVICES, CORE | [address] [...] 5-6 weeks | | | 850 - 62837 6-7 weeks | | | 4000 - 128440 7-12 weeks | | | 06194 - 813610 12-16 weeks | | | 64595 - 860828 16-29 | | | weeks 1400 - 99963 | | | 29-41 weeks 940 - 90691 | | | This test has not been approved for use as a tumor marker in | | | males or females. | | + + + + + + + + | Performing | Address | City/State/Zipcode | Phone Number | | Organization | | | | + + + + + | [facility] | [address] | [place] [address] | | | SERVICES, CORE | [address] | | | + + + + + ED INFORMATION EXCHANGE (05/13/2019 5:14 PM PDT) + + | Specimen | + + | | + + + + + | Narrative | Performed At | + + + | COLLECTIVE?NOTIFICATION?05/13/2019 17:13?DYLAN ROMERO?MRN: | COLLECTIVE | | [id number] Criteria Met Has Guidelines PDMP Security | MEDICAL | | and Safety No recent Security Events currently on file ED Care | TECH[employer]OLOG[employer] | | Guidelines from [facility] [place], [facility] Last Updated: 12/06/18 9:53 AM | | | Care Coordination: Receiving mental health services with | | | User [employer].? Please contact User [employer] for mental health concerns.? | | | Saima/Toni Centeno: [phone]? Kishan: [phone].? | | | These are guidelines and the provider should exercise clinical | | | judgment when providing care. Care History Medical/Surgical | | | 05/11/19 12:00 AM [facility] Patient is | | | currently established with [facility]. If patient is seen in | | | the ED during business hours. Please contact CHWs at [facility] | | | Clinic. Care [...] care. 08/23/18 12:00 AM | | | [facility] PATIENT HAS A PCP APT TO [...] SUDOGEST 30 MG TABLET 5 BERNARDO MARTIN, MOLD BLOWER 0 | | | 2019-03-30 SUDOGEST 30 MG TABLET 30 BERNARDO MARTIN, MOLD BLOWER 0 | | | 2019-03-20 ALPRAZOLAM 1 MG TABLET 60 [place] JEFFAS 4 0 2019-03-14 | | | BELBUCA 600 MCG FILM 58 JEFFREY ORR 0 2019 PHENTERMINE | | | 37.5 MG TABLET 90 ALY JR, MD 4 0 2019-02-21 ALPRAZOLAM 1 | | | MG TABLET 60 [place] JEFFAS 4 0 2019-02-11 BELBUCA 600 MCG FILM 56 | | | SUNNY COLINDRES MPAS 0 2019-01-31 PHENTERMINE 37.5 MG TABLET 30 | | | ALY FRANKS MD 4 0 2019-01-20 ALPRAZOLAM 1 MG TABLET 60 [place] | | | JEFFAS 4 0 2019-01-14 BELBUCA 600 MCG FILM 56 JEFFREY FERRER-C | | | 0 2019-01-05 BELBUCA 450 MCG FILM 48 BETZY BALDWIN PA-C 0 | | | 2019-01-02 PHENTERMINE 37.5 MG TABLET 30 ALY FRANKS MD 4 0 | | | 2018-12-24 BELBUCA 450 MCG FILM 24 JEFFREY FERRER-C 0 | | | 2018-12-03 PHENTERMINE 37.5 MG TABLET 30 ALY FRANKS MD 4 0 | | | 2018-11-26 BELBUCA 450 MCG FILM 56 JEFFREY FERRER-C 0 | | | 2018-11-24 BELBUCA 300 [...] (12 mo.) Facility Visits | | | [facility] 1 [facility] 1 | | | [facility] 2 Total 4 Note: Visits indicate total | | | known visits. Recent Emergency Department Visit Summary Date | | | Facility City State Type Diagnoses or Chief Complaint May 13, 2019 | | | [facility] [place] Emergency | | | 10,800. A303 May 10, 2019 [facility] [place] | | | Emergency Nausea with vomiting, unspecified Solitary | | | pulmonary nodule Anxiety disorder, unspecified Ventral | | | hernia without obstruction or gangrene Unspecified abdominal | | | pain Diarrhea, unspecified Allergy status to oth | | | drug/meds/biol subst status Prsnl hx of TIA (TIA), and cereb | | | infrc w/o resid deficits Other long goods drier (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 | | | Allergy status to penicillin December 03, 2018 [facility] | | | [facility] [place] Emergency RIGHT LEG PAIN DUE TO FALL | | | Strain of unsp musc/tend at lower leg level, right leg, init Jul | | | 2018 [facility] [place] Emergency Other correction | | | (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 Upper [...] Team Provider Specialty Phone Fax Service Dates Najmaraymond, | | | Rob Manager Strategy & Account/Student Development Advisor Mar 27, 2018 - | | | Current Bernard Hylton MD Internal Medicine: Pulmonary Disease | | | Aug 23, 2018 - Current [employer] This patient has | | | registered at the [facility] [place] [facility] | | | Department For more information visit: | | | [email or web address] | | | [email or web address] PLEASE NOTE: 1. Any care recommendations [...] or completeness of information provided. ? 2019 [employer] | | | [employer] - [employer] | | + + + + + | Procedure Note | + + | Service Account, Rtf Results Inbound - 05/13/2019 5:16 PM PDT Formatting of this | | note might be different from the original.COLLECTIVE?NOTIFICATION?05/13/2019 | | 17:13?DYLAN ROMERO? Met Has Guidelines PDMPSecurity and | | SafetyNo recent Security Events currently on fileED Care Guidelines from [employer] - | | [place] Updated: 12/06/18 9:53 AM Care Coordination:Receiving mental health | | services with [facility] [employer].? Please contact [employer] for mental health concerns.? | | Saima/Toni Centeno: [phone]? Kishan: [phone].?These are guidelines | | and the provider should exercise clinical judgment when providing care.Care | | HistoryMedical/Nuflthkm54/16/19 12:00 AM [facility] Patient is currently | | established with [facility]. If patient is seen in the ED during business hours. | | Please contact CHWs at [facility].Care Recommendation:This patient has had 5 or [...] clinical judgment when providing care.08/23/18 12:00 AM [facility] | | Hospital PATIENT HAS A PCP APT TO ESTABLISH CARE ON 10/04/18 @ 10:00AM WITH DR HYLTON. | | Prescription Drug Report (12 Mo.)Rx DetailsFill Date Drug Description Qty. Prescriber CS | | MED 2019-05-12 FENTANYL 12 MCG/HR PATCH 5 BETZY BALDWIN PA-C 2 0 2019-04-18 | | ALPRAZOLAM 1 MG TABLET 60 [place] JOSE 4 0 2019-04-13 BELBUCA 600 MCG FILM 57 BETZY | | JAVIER BALDWIN 0 2019-04-12 BELBUCA 600 MCG FILM 3 BETZY BALDWIN PA-C 0 2019-04-09 | | SUDOGEST 30 MG TABLET 5 BERNARDO MARTIN, MOLD BLOWER 0 2019-03-30 SUDOGEST 30 MG TABLET 30 | | BERNARDO MARTIN, MOLD BLOWER 0 2019-03-20 ALPRAZOLAM 1 MG TABLET 60 [place] JOSE 4 0 2019-03-14 | | BELBUCA 600 MCG FILM 58 JEFFREY ORR 0 2019 PHENTERMINE 37.5 MG TABLET 90 | | ALY FRANKS MD 4 0 2019-02-21 ALPRAZOLAM 1 MG TABLET 60 [place] JOSE 4 0 2019-02-11 | | BELBUCA 600 MCG FILM 56 JUNITO PEDRO 0 2019-01-31 PHENTERMINE 37.5 MG TABLET | | 30 ALY FRANKS MD 4 0 2019-01-20 ALPRAZOLAM 1 MG TABLET 60 WINSTON SNOWDENAS 4 0 | | 2019-01-14 BELBUCA 600 MCG FILM 56 HIPOLITO FERRERC 0 2019-01-05 BELBUCA 450 MCG | [...] 0 2018-11-24 BELBUCA 300 MCG FILM 16 HIPOLITO FERRERC 0 | | Showing 20 of the 37 most-recent prescriptions Rx SummaryMetric Count CS II-V Rx 23 | | CS-II Rx 1 Quantity Dispensed 1,360 Unique Prescribers 6 [facility] 3 Benzos 4 | | Opioids 7 Long Acting Opioids 0 E.D. Visit Count (12 mo.)Facility Visits [facility] | | Health 1 [facility] and [facility] 1 [facility] 2 Total 4 Note: | | Visits indicate total known visits. Recent Emergency Department Visit SummaryDate | | Facility City State Type Diagnoses or Chief Complaint May 13, 2019 [facility] and | | [facility] [place] Emergency 10,800. A303 May 10, 2019 [facility] | | [place] Emergency Nausea with vomiting, unspecified Solitary pulmonary nodule | | Anxiety disorder, unspecified Ventral hernia without obstruction or gangrene | | Unspecified abdominal pain Diarrhea, unspecified Allergy status to oth | | drug/meds/biol subst status Prsnl hx of TIA (TIA), and cereb infrc w/o resid deficits | | Other correction (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 Allergy status to penicillin December 03, 2018 | | [facility] [place] Emergency RIGHT LEG PAIN DUE TO FALL Strain of | | unsp musc/tend at lower leg level, right leg, init Aug 22, 2018 [facility] | | [place] Emergency Other long goods drier (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 Upper abdominal pain, | [...] Fax Service Dates | | Rob Tilley Manager Strategy & Account/Student Development Advisor Mar 27, 2018 - Current | | Bernard Hylton MD Internal Medicine: Pulmonary Disease Aug 23, 2018 - Current | | CrayonPixelThi patient has registered at the [facility] [place] | | Emergency Department For more information visit: | | [email or web address] PLEASE | | NOTE: 1. Any care [...] completeness of information | | provided.? 2019 [employer] - [employer] | |[facility] Pharm[facility] 3 | |Benzos 4 | |Opioids 7 | |Long Acting Opioids 0 | | | | | | | |E.D. Visit Count (12 mo.) | |Facility Visits | |[facility] 1 | |[facility] 1 | |[facility] 2 | |Total 4 | |Note: Visits indicate total known visits. | | | |Recent Emergency Department Visit Summary | |Date Facility City State Type Diagnoses or Chief Complaint | |May 13, 2019 [facility] [place] Emergency | | 10,800. A303 | | | |May 10, 2019 [facility] [place] Emergency | | Nausea with vomiting, unspecified | | Solitary pulmonary nodule | | Anxiety disorder, unspecified | | Ventral hernia without obstruction or gangrene | | Unspecified abdominal pain | | Diarrhea, unspecified | | Allergy status to oth drug/meds/biol subst status | | Prsnl hx of TIA (TIA), and cereb infrc w/o resid deficits | | Other correction (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 | | Allergy status to penicillin | | | |December 03, 2018 [facility] [place] Emergency | | RIGHT LEG PAIN DUE TO FALL | | Strain of unsp musc/tend at lower leg level, right leg, init | | | |Aug 22, 2018 [facility] [place] Emergency | | Other long goods drier (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 | | Upper abdominal pain, unspecified | | Bariatric surgery status | | Allergy status to oth drug/meds/biol subst status | | Noninfective gastroenteritis and colitis, unspecified | | Obesity, unspecified | | Anxiety disorder, unspecified | | jail (current) use of aspirin | | Allergy status to penicillin | | Personal history of pulmonary embolism | | | | | | | |Recent Inpatient Visit Summary | |No recorded inpatient visits. | | | |Care Team | |Provider Specialty Phone Fax Service Dates | |Rob Tilley Manager Strategy & Account/Student Development Advisor Mar 27, 2018 - Current | |Bernard Hylton MD Internal Medicine: Pulmonary Disease Aug 23, 2018 - Current | | | |[facility] Portal | |This patient has registered at the [facility] | |For more information visit: [email or web address] | |PLEASE NOTE: | | 1. Any [...] information provided. | | | |? 2019 [employer]. - [email or web address] | + + + + + + + | Performing | Address | City/State/Zipcode | Phone Number | | Organization | | | | + + + + + | [facility] | [address], | [place], [place] | [phone] | | [employer] | [address] | [address] | | + + + + + EGD (04/07/2019 10:53 AM PDT) + + | Specimen | + + | | + + + + + | Narrative | Performed At | + + + | MRN: | NKECHI | | [id number] Date: 04/07/2019Patient Name: Dylan Curtis #: | ENDOSCOPY | | [id number] of : 1975CSN: [id number] Type: | | | AmbulatoryRoom: Endo 5Procedure: Upper GI | | | endoscopyIndications: Generalized abdominal pain, Nausea | | | with vomitingProviders: TAL MCNEIL MD | | | (Doctor), BERNARDO BERNARD RN (Nurse), | | | EREN SLATER (Drum Sander Setter)Referring MD: KEREN Kilpatrick | | | KENNY ALLENPRequestdonya Provider: Medicines: | | | Midazolam 8 [...] | | | The Olymp[employer] [id number] Endoscope #[id number] | | | was introduced through the [...] | | + +---------+ + + X-RAY UGI WO KUB (03/22/2019 11:04 AM [...] Note | + + | Service Account, [employer] Res In Interface - 03/08/2019 3:33 PM [...] | | | + +---------+ + + VITAMIN B1, WHOLE BLOOD (03/01/2019 [...] | | | | | determined by [facility] | | | | | | Laboratories. See | | | | | | Compliance Statement B: | | | | | | [employer]/CSPerformed | | | | | | by [employer],[address] | | | | | | [address] [facility],[place] | | | | | | [address] | | | | | | [phone].Accupal. | | | | | | comIsmael [...] [facility] | [address] | [place], [place] | | | UNIV PTH - INTFC | | [address] | | + + + + + [...] | + + + + + | [facility] | [address] | [place] [address] | | | SERVICES, CORE | CLARENCE [...] | + + + + + | [facility] | [address] | [place] [address] | | | SERVICES, CORE | CLARENCE [...] B: | | | | | | [employer]upal.[employer]/CSPerformed | | | | | | by [employer],[address] | | | | | | [facility] | | | | | | [address] | | | | | | [phone].Accupal. | | | | | | Vivaldi BiosciencesIsmael MD, | | | | | | [...] + | [facility] | [address] | [place], [place] | | | UNIV PTH - [facility] | | [address] | | + + + + + [...] [facility] | | | (YEN NOAH) | [employer],[address] | | REG UNIV | | | SERUM | [address], [facility],[place] | | PTH - INTFC | | | | [address] | | | | | | [phone].[employer]. | | | | | | comIsmael [...] B: | | | | | | ReviewPro/CS | | | | + + + + + + + + | Specimen | + + | Blood - Blood | | (substance) | + + + + + + + | Performing | Address | City/State/[facility] | Phone Number | | Organization | | | | + + + + + | [facility] | [address] | [place], [place] | | | UNIV PTH - [facility] | | [address] | | + + + + + [...] INTFC | | | | determined by [employer] ([facility]) | | | | | | Laboratories. See | | | | | | Compliance Statement B: | | | | | | [employer]upal.[employer]/CSPerformed | | | | | | by [employer],[address] | | | | | | [place], [place] | | | | | | [address] | | | | | | [phone].Accupal. | | | | | | Vivaldi BiosciencesIsmael MD, | | | | | | [...] [facility] | [address] | [place], [place] | | | UNIV PTH - INT[facility] | | [address] | | + + + + + [...] | + + + + + | [facility] | [address] | [place] [address] | | | SERVICES, SPECIAL | CLARENCE [...] | | | | | determined by [facility] | | | | | | Laboratories. See | | | | | | Compliance Statement B: | | | | | | [employer]upal.[employer]/CSPerformed | | | | | | by [employer],[address] | | | | | | [address], [facility],[place] | | | | | | [address] | | | | | | [phone].Accupal. | | | | | | com, [...] [facility] | [address] | [place], [place] | | | UNIV PTH - [facility] | | [address] | | + + + + + [...] | + + + + + | [facility] | [address] | [place] [address] | | | LYDIA RANGEL | CLARENCE [...] [facility] | [address] | [place] [address] | | | SERVICES, CORE | PARK [...] | + + + + + | [facility] | [address] | [place] [address] | | | SERVICES, CORE | CLARENCE [...] | + + + + + | [facility] | [address] | [place] [address] | | | SERVICES, CORE | CLARENCE [...] | | | | | determined by [facility] | | | | | | Laboratories. See | | | | | | Compliance Statement B: | | | | | | Accupal.com/CSPerformed | | | | | | by [employer] [facility],[address] | | | | | | [place] | | | | | | [address] | | | | | | [phone].[employer]. | | | | | | comIsmael [...] [facility] | [address] | [place], [place] | | | UN[facility] - [facility] | | [address] | | + + + + + from Last 3 Months Insurance + +--------+ +--------+-------+---------+--------+ | Payer | Benefi | Subscriber | Effect | Phone | Address | Type | | | t Plan | ID | scarlett | | | | | | / | | Dates | | | | | | Group | | | | | | + +--------+ +--------+-------+---------+--------+ | ENROBING MACHINE OPERATOR MEDICAID | ENROBING MACHINE OPERATOR | [id number] | | | | Medica | | [...] | + +--------+ +--------+ + + | Dylan Romero | Person | Self [birth year] | [address] | | | al/Fam | | 1975 | [phone] | [address] [place] | | | [place] | | | [address] (Home) | [address] | + +--------+ +--------+ + + Advance Directives + + + + + | Code Status | Date | Date | Comments | | | Activated | Inactivated | | + + + + + | Full Code | 05/14/2019 | 05/14/2019 | | | | 1:26 AM | 9:56 PM | | + + + + [...] + + +---+ | Full Code | 03/01/2015 | 03/03/2015 | | | | 12:13 AM | 8:45 PM | | + + + +---+"
--- OUTSIDE RECORDS SUMMARY | ~2019-05-23 | XMS | Encounter Summary ---
Demographics + + + | Address | [address] | | | [place] [address] | + + + | Home Phone [...] [place], [place] | | | | | [address] | | + + + + + | Ellie Vang | ECON | Unknown | | + + + + + Care Team Providers + +------+ + | Care Shell Trim Tool Setter Name | Role | Phone | [...] | | | | | [place], [place] | | | | | | [address] | | | | | | [phone] | | | | | | | | +--------+ + + + + documented as of this encounter Visit Diagnoses Not on filedocumented in this encounter"
--- OUTSIDE RECORDS SUMMARY | ~2019-05-23 | XMS | Encounter Summary ---
Demographics + + + | Address | [address] | | | [place] [address] | + + + | Home Phone [...] + | Katalina Padilla | ECON | [address] | | | | | [place], [place] | | | | | [address] | | + + + + + | Ellie Vang | ECON | Unknown | | + + + + + Care Team Providers + +------+ + | Care Com Writer Name | Role | Phone | [...] + + | 11/05/ | Hospital | [facility] 14C [address] | Joseph An | | | 2016 - | Encounter | [address] | MD Birgit [address] [facility] | | | | | 14C [facility] | [address] | | | 11/20/ | | [place], [place] | [place], [place] | | | 2016 | | [address] | [address] | | | | | [phone] | [phone] | | | | | | | | | | | | Ana, | | | | | | MD Briana [address] | | | | | | [address] | | | | | | Rd [place], [place] | | | | | | [address] | | | | | | [phone] | | | | | | | | | | | | Carmelina Tucker, | | | | | | JEFFREY-Aieme [address] | | | | | | [address] | | | | | | [place], [place] | | | | | | [address] | | | | | | [phone] | | | | | | | | | | | | Charley Lacey MD | | | | | | Jose Scott MD | | | | | | [address] | | | | | | [address] | | | | | | [place], [place] | | | | | | [address] | | | | | | [phone] | | | | | | | | | | | | Mannie Larkin MD | | | | | | [address] | | | | | | [address] [place], | | | | | | [place] [address] | | | | | | [phone] | | | | | | | | | | | | Tyrone Adrian MD | | | | | | [address] | | | | | | [address] [place], | | | | | | [place] [address] | | | | | | [phone] | | | | | | | [...] did want her to follow up with public health internship in [place]. She should continue working towards bariatric surgery wh ich will ultimately put less stress on her heart. -Continue torsemide 80mg BID -Increase potassium supplementation to KCl 40mg BID -Daily weights and strict 2g Na 2L fluid restricted diet -Close followup with Dr. Goodrich (appt on 11/25 at 11AM) -Needs followup with cardiology in [place] #Left lower extremity DVT #Presumed PE Asymmetric left lower extremity pain and swelling was suspicious for DVT and confirmed with duplex ultrasound. 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 Started anticoagulation bridge with [...] mouth once daily. , Historical Med CALCIUM [id number]-GENIS ORAL Take 2 tablets by mouth two [...] Cyndi Meier Cardiology [facility]est[facility] Failure at [facility] Cardiology Additional Instructions/Orders: Diet Diabetic (Consistent [...] Good Yosef Segovia MD PGY-1 Internal Medicine [id number] INPATIENT FACULTY PROGRESS NOTE - GM 1 [...] (HCC) 15) Candidal intertrigo Tyrone Adrian MD [facility] 14C terrazzo tile setter Division of Hospital Medicine Department of Medicine [address] [place] [address] [facility] DEPARTMENT: Hosp- [id number] Place of Service: Date of Service: 11/21/2015 CSN: [id number] Modifiers:GC Resident Involved: Yes Suggested CPT: 02044 Discharge Management < 30 minute documented in this encou nter Medications at Time of Discharge + + + +---------+--------+ + | Medication | Sig | Dispensed | Refills | Start | End Date | | | | | | Date | | + + + +---------+--------+ + | CALCIUM | Take 2 tablets by | | 0 | | | | [id number]-GEN | mouth two times | | | [...] (HCC) 15) Candidal intertrigo Tyrone Adrian MD [facility] 14C terrazzo tile setter Division of Hospital Medicine Department of Medicine [facility] & [address] [place] [address] [facility] DEPARTMENT: Hosp- [id number] Place of Service: [facility] Date of Service: 11/20/2015 CSN: [id number] Modifiers:GC Resident Involved: Yes Suggested CPT: 33940 Subsequent Visit Exp Prob Foc/Mod Complexity 25 min Colleen Tello - 016 6:49 AM PDT PHYSICIAN TAXATION INSPECTOR STUDENT PROGRESS NOTE FOR EDUCATIONAL PURPOSES ONLY [...] of ovarian cysts or menses related. Contact CATERER'S AIDE if TV-US i s ordered. - TV-US [...] - topiramate 200mg po bid JEFFREY Gee-S2 [facility] PA Student Feeding: <2L fluid, Diabetic diet, >2g na Analgesia: APAP, gabapentin, hydrocodone Thromboembolic prophylaxis: Heparin/warfarin Glycemic control: moderate ISS Mobility: Encourage walking and movement Discharge: Expect hospital stay another 2-3 days with PCP FU (Dr. Goodrich) on Saturday 11/25 @ 1 1 am. - Referral to Evaporator Supervisor Code status: FULL Associated attestation - Juliette Yosef Pryor - 11/20/2015 7:50 PM PDTI have read the [facility] t note by PA student Dara and [...] PCP Yosef Segovia MD PGY-1 Internal Medicine [id number] Tyrone Adrian MD - 11/19/2015 11:51 AM [...] personally interviewed the patient, performed the de al cruz elements of the physical examinatio n, [...] if the PO works) Tyrone Adrian MD [facility] 14C terrazzo tile setter Division of Hospital Medicine Department of Medicine [facility] & [address] [place] [address] [facility] DEPARTMENT: Hosp- [id number] Place of Service: Date of Service: 11/19/2015 CSN: [id number] Modifiers:GC Resident Involved: Yes Suggested CPT: 50799 Subsequent Visit Exp Prob Foc/Mod Complexity 25 min olleen Diamond - 016 6:24 AM PDT PHYSICIAN TAXATION INSPECTOR STUDENT PROGRESS NOTE FOR EDUCATIONAL PURPOSES ONLY [...] of ovarian cysts or menses related. Contact CATERER'S AIDE if TV-US i s ordered. - TV-US [...] - topiramate 200mg po bid JEFFREY Gee-S2 [facility] PA Student Feeding: <2L fluid, Diabetic diet, [...] can. Yosef Segovia MD PGY-1 Internal Medicine [id number] Tyrone Adrian MD - 11/18/2015 2:01 PM [...] (HCC) 15) Candidal intertrigo Tyrone Adrian MD [facility] 14C terrazzo tile setter Division of Hospital Medicine Department of Medicine [facility] [address] [place] [address] [facility] DEPARTMENT: Hosp- [id number] Place of Service: Date of Service: 11/18/2015 CSN: [id number] Modifiers:GC Resident Involved: Yes Suggested CPT: 56477 Subsequent Visit Exp Prob Foc/Mod Complexity 25 [...] plan. Yosef Segovia MD PGY-1 Internal Medicine [id number] signed by Yosef Segovia at 11/18/2015 11:52 [...] (HCC) 15) Candidal intertrigo Tyrone Adrian MD [facility] 14C terrazzo tile setter Division of Hospital Medicine Department of Medicine [facility] [place] [address] [place] [address] [facility] DEPARTMENT: Hosp- [id number] Place of Service: - Date of Service: 11/17/2015 CSN: [id number] Modifiers:GC Resident Involved: Yes Suggested CPT: 16987 Subsequent Visit Exp Prob Foc/Mod Complexity 25 min lowersColleen - 016 6:40 AM PDT PHYSICIAN TAXATION INSPECTOR STUDENT PROGRESS NOTE FOR EDUCATIONAL PURPOSES ONLY [...] - topiramate 200mg po bid JEFFREY Gee-S2 [facility] PA Student Feeding: <2L fluid, Diabetic [...] have read the licha t note by JEFRFEY student Dara and agree with the assessment [...] can Yosef Segovia MD PGY-1 Internal Medicine [id number] Tyrone Adrian MD - 11/16/2015 4:59 PM [...] (HCC) 15) Candidal intertrigo Tyrone Adrian MD [facility] 14C terrazzo tile setter Division of Hospital Medicine Department of Medicine [facility] [address] [place] [address] [facility] DEPARTMENT: Hosp- [id number] Place of Service: Date of Service: 11/16/2015 CSN: [id number] Modifiers:GC Resident Involved: Yes Suggested CPT: 48229 Subsequent Visit Exp Prob Foc/Mod Complexity 25 min olleen Diamond - 016 6:43 AM PDT PHYSICIAN TAXATION INSPECTOR STUDENT PROGRESS NOTE FOR EDUCATIONAL PURPOSES ONLY [...] - topiramate 200mg po bid JEFFREY Gee-S2 [facility] PA Student Feeding: <2L fluid, Diabetic [...] assistance of Grisel Pearl. Patient lives i [facility] which is quite a distance to travel to and from [place]. We would ideally arran ge cardiac follow [...] (HCC) 15) Candidal intertrigo Tyrone Adrian MD [facility] 14C terrazzo tile setter Division of Hospital Medicine Department of Medicine [facility] [address] [place] [address] [facility] DEPARTMENT: Hosp- [id number] Place of Service: [facility] [id number] Date of Service: 11/15/2015 CSN: [id number] Modifiers:GC Resident Involved: Yes Suggested CPT: 58104 Subsequent Visit Detailed/High complexity 35 min lColleen goff - 016 6:33 AM PDT PHYSICIAN TAXATION INSPECTOR STUDENT PROGRESS NOTE FOR EDUCATIONAL PURPOSES ONLY INPATIENT PROGRESS NOTE PATIENT INFORMATION Patient Name: Elzbieta Cristina Date of : 1975 Date of Admission: 11/06/2015 PCP: Fadi Goodrich DO Room/Bed: [facility]/08/08 Attending Provider: Tyrone Adrian MD Encounter Information [...] last 8 days Intake 9571.5 ml Output 89105 ml Net since Admission -39297.5 ml -25.938 L = 57.0636 lbs Constitutional: [...] - topiramate 200mg po bid JEFFREY Gee-S2 [facility] PA Student Feeding: <2L fluid, Diabetic diet, >2g na Analgesia: APAP, gabapentin, hydrocodone Thromboembolic prophylaxis: Heparin/warfarin Glycemic control: moderate ISS Mobility: Encourage walking and movement Discharge: Expect hospital stay another 3-5 days with diuresis until more euvolemic and R h eart cath can be completed. Code status: FULL Associated attestation - [place], Yosef Pryor - 11/15/2015 2:59 PM PDTI [facility] the [facility] note by PA student Dara and [...] can Yosef Segovia MD PGY-1 Internal Medicine [id number] Tyrone Adrian MD - 11/14/2015 4:16 PM [...] (HCC) 15) Candidal intertrigo Tyrone Adrian MD [facility] 14C terrazzo tile setter Division of Hospital Medicine Department of Medicine [address] [place] [address] [facility] DEPARTMENT: Hosp- [id number] Place of Service: Date of Service: 11/14/2015 CSN: [id number] Modifiers:GC Resident Involved: Yes Suggested CPT: 44512 Subsequent Visit Exp Prob Foc/Mod Complexity 25 min olleen Diamond - 016 6:42 AM PDT PHYSICIAN TAXATION INSPECTOR STUDENT PROGRESS NOTE FOR EDUCATIONAL PURPOSES ONLY [...] - topiramate 200mg po bid JEFFREY Gee-S2 [facility] PA Student Feeding: <2L fluid, Diabetic [...] outpatient Yosef Segovia MD PGY-1 Internal Medicine [id number] Tyrone Adrian MD - 11/13/2015 4:06 PM PDTINPATIENT FACULTY PROGRESS NOTE - GM 1 Author; Tyrone Adrian MD Attending Physician: Tyrone Adrian MD Hospital Day: 7 PCP: Fadi Goodrich DO PCP PCP Patient's Name: lEzbieta Cristina Today's Date: 11/13/2015 I personally interviewed [...] (HCC) 15) Candidal intertrigo Tyrone Adrian MD [facility] 14C terrazzo tile setter Division of Hospital Medicine Department of Medicine [facility] [place] [address] [place] [address] [facility] DEPARTMENT: Hosp- [id number] Place of Service: [facility] Date of Service: 11/13/2015 CSN: [id number] Modifiers:GC Resident Involved: Yes Suggested CPT: 07633 Subsequent Visit Detailed/High complexity 35 min lfelixsColleen - 016 6:36 AM PDT PHYSICIAN TAXATION INSPECTOR STUDENT PROGRESS NOTE FOR EDUCATIONAL PURPOSES ONLY [...] - topiramate 200mg po bid JEFFREY Gee-S2 [facility] PA Student Feeding: <2L fluid, Diabetic [...] VTE. Yosef Segovia MD PGY-1 Internal Medicine [id number] Tyrone Adrian MD - 11/12/2015 1:59 PM [...] 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, J CANS VACUUM TESTER, at this point not definitive Plan: continue [...] ongoing 12) Candidal intertrigo Tyrone Adrian MD [facility] 14C terrazzo tile setter Division of Hospital Medicine Department of Medicine [facility] [address] [place] [address] [facility] DEPARTMENT: Hosp- [id number] Place of Service: - Date of Service: 11/12/2015 CSN: [id number] Modifiers:GC Resident Involved: Yes Suggested CPT: 85866 Subsequent Visit Detailed/High complexity 35 min lColleen goff - 016 6:31 AM PDT PHYSICIAN TAXATION INSPECTOR STUDENT PROGRESS NOTE FOR EDUCATIONAL PURPOSES ONLY INPATIENT PROGRESS NOTE PATIENT INFORMATION Patient Name: Elzbieta Cristina Date of : 1975 Date of Admission: 11/06/2015 PCP: Fadi Goodrich DO Room/Bed: [facility]/ Attending Provider: Mannie Larkin MD Encounter Information [...] - topiramate 200mg po bid JEFFREY Gee-S2 [facility] PA Student Feeding: <2L fluid, Diabetic [...] disease. Yosef Segovia MD PGY-1 Internal Medicine [id number] Mannie Larkin MD - 11/11/2015 9:19 PM [...] diuresis then RHC Mannie Larkin MD Clinical Silver Miner, Internal Medicine Pager [phone] ristalColleen martines - 10/25 6:40 AM PDT PHYSICIAN TAXATION INSPECTOR STUDENT PROGRESS NOTE FOR EDUCATIONAL PURPOSES ONLY [...] - topiramate 200mg po bid JEFFREY Gee-S2 [facility] PA Student Feeding: <2L fluid, Diabetic [...] pain Yosef Segovia MD PGY-1 Internal Medicine [id number] Maria Eugenia Leiva RCP - 11/11/2015 6:39 [...] another 5-7 days Mannie Larkin MD Clinical Silver Miner, Internal Medicine Pager [phone] Yosef Fang T - 7:24 AM PDT [...] plan. Yosef Segovia MD PGY-1 Internal Medicine [id number] signed by Yosef Segovia at 11/10/2015 2:50 [...] R heart cath onc e a bit drier take off tender. In terms of AMARA - does not tolerate CPAP historically. Likely CPAP will be ve ry important for her going forward. Will try overnight oximetry here to assess severity. Discharge planning:Anticipate several days in house. I spent >35 min of which >50% was spent in counseling and coordination of care. Briana Perez MD [facility] Division of Hospital Medicine Grisel Mcghee [...] Maker Primary Surrogate Decision Maker Katalina kim [phone] Advanced Directives Existence of Advanced Directive Reviewed: No- Has Interest (11/09/15 1022) Advanced Directives Reviewed Comments: I gave a copy of advance directives (11/09/15 1022) KRISHNA Huertas NP [facility] 14C [address] [place] [address] lfelixColleen martines - 6:41 AM PDT PHYSICIAN TAXATION INSPECTOR STUDENT PROGRESS NOTE FOR EDUCATIONAL PURPOSES ONLY [...] of acute blood loss and anemia of chrome tanning drum operator ela dz and thalassemia is less likely. [...] AM Yosef Segovia MD PGY-1 Internal Medicine [id number] Briana Perez MD - 11/08/2015 2:01 PM [...] and coordination of care. Briana Perez MD [facility] Division of Hospital Medicine ara Colleen - 11/08/2015 6:26 AM PDT PHYSICIAN TAXATION INSPECTOR STUDENT PROGRESS NOTE FOR EDUCATIONAL PURPOSES ONLY [...] LV dysfunction. Her chronic diagnosed, but untreated AMRAA, could have le d to pulmonary HTN [...] po bid (topamax, nerve pain) JEFFREY Gee-S2 [facility] PA Student Feeding: <2L fluid, Diabetic [...] Hair Md, MSc Internal Medicine PGY2 Pager [phone] Kwadwo Freire - 11/07/2015 2:05 PM PDTTransthoracic [...] plan. Yosef Segovia MD PGY-1 Internal Medicine [id number] lfelixs Colleen - 016 8:43 AM PDT PHYSICIAN TAXATION INSPECTOR STUDENT PROGRESS NOTE FOR EDUCATIONAL PURPOSES ONLY [...] perfusion. - consider US to evaluate liver (VZWF-pcf-haklffsrs fatty liver dz) and look for ascites. [...] and movement Code status: [facility] Plan of Treatment +--------+ [...] | | 2018 | Visit | | [address] | | | | | | [place], [place] | | | | | | [address] | | | | | | [phone] | | | | | | | [...] | + +--------+ + + + | TROPONIN POC | Urgent | 11/06/2015 | | Results for this | | | | 2:09 PM | | procedure are in the | | | | PDT | | results section. | + +--------+ + + + | BG-VALERIE BENZ ISTAT | Urgent | 11/06/2015 | | [...] + + + | [facility] | [address] | [place], [place] | | | LÓPEZ POINT OF CARE | [address] | [address] | | | TESTS | | | [...] + + + + + | [facility] | [address] | [place] [address] | | | SERVICES, CORE | [address] | | | + + + + + MAGNESIUM, PLASMA (11/21/2015 6:27 AM PDT) + +---------+ + + + | Component | Value | Ref Range | Performed | Pathologist | | | | | At | Signature | + +---------+ + + + | MAGNESIUM,P | 2.7 (H) | 1.8 - 2.5 mg/dL | [facility] [...] [facility] | [address] | [place] [address] | | | SERVICES, CORE | [address]ARK [...] | | | LABORATORY | | | CAMBODIAN | | | SERVICES, | | | [...] + + + + + | [facility] | [address] | [place] [address] | | | SERVICES, LYDIA | [address] [...] [facility] | [address] | [place], [place] | | | JUSTINE DAWN OF JAKY | [facility] | [address] | | | TESTS | | | [...] (H) | 60 - 99 mg/dL | [facility] [...] [facility] | [address] | [place], [place] | | | JUSTINE DAWN OF CARE | [address] | [address] | | | TESTS | | | [...] [facility]ES | [address] | [place], [place] | | | JUSTINE DAWN OF JAKY | [facility] | [address] | | | TESTS | | | [...] [facility] | [address] | [place], [place] | | | JUSTINE DAWN OF JAKY | [facility] | [address] | | | TESTS | | | [...] (H) | 60 - 99 mg/dL | [facility] [...] [facility] | [address] | [place], [place] | | | JUSTINE DAWN OF CARE | [address] | [address] | | | TESTS | | | [...] [facility] | [address] | [place] [address] | | | SERVICES, CORE | [address] [...] + + + + + | [facility] | [address] | [place] [address] | | | SERVICES, CORE | [address] | | | + + + + + MAGNESIUM, PLASMA (11/20/2015 6:00 AM PDT) + +-------+ + + + | Component | Value | Ref Range | Performed | Pathologist | | | | | At | Signature | + +-------+ + + + | MAGNESIUM,P | 2.5 | 1.8 - 2.5 mg/dL | [facility] | | | LASMA | | | [...] + + + + + | [facility] | [address] | [place] [address] | | | SERVICES, CORE | [address] [...] | | | LABORATORY | | | CAMBODIAN | | | SERVICES, | | | [...] MDRD equation recommended by the | [facility] | | National Kidney Disease Education [...] + + + + + | [facility] | [address] | [place] [address] | | | SERVICES, CORE | [address] [...] (H) | 60 - 99 mg/dL | [facility] [...] [facility]ES | [address] | [place], [place] | | | JUSTINE DAWN OF CARE | [address] | [address] | | | TESTS | | | [...] [facility] | [address] | [place], [place] | | | JUSTINE DAWN OF CARE | [address] | [address] | | | TESTS | | | [...] + + + + + | [facility] | [address] | [place] [address] | | | LYDIA RANGEL | [address] [...] [facility] | [address] | [place] [address] | | | SERVICES, CORE | PARK [...] | | | LABORATORY | | | CAMBODIAN | | | SERVICES, | | | [...] the MDRD equation recommended by the | [facility] | | National Kidney Disease Education Program. [...] + + + + + | [facility] | [address] | [place] [address] | | | LYDIA RANGEL | [address] [...] [facility] | [address] | [place], [place] | | | LÓPEZ POINT OF CARE | [address] | [address] | | | TESTS | | | [...] AMES | [address] | [place], [place] | | | JUSTINE DAWN OF CARE | [address] | [address] | | | TESTS | | | [...] [facility] | [address] | [place], [place] | | | JUSTINE DAWN OF CARE | [address] | [address] | | | TESTS | | | [...] - [facility] | [address] | [place], [place] | | | TRINIDAD POINT OF CARE | [address] | [address] | | | TESTS | | | [...] [facility] | [address] | [place] [address] | | | LYDIA RANGEL | [address] [...] [facility] | [address] | [place] [address] | | | SERVICES, LYDIA | [address] [...] (H) | 60 - 99 mg/dL | [facility] [...] [facility] | [address] | [place], [place] | | | JUSTINE DAWN OF JAKY | [facility] | [address] | | | TESTS | | | [...] AMES | [address] | [place], [place] | | | LÓPEZ POINT OF CARE | [address] | [address] | | | TESTS | | | [...] + + + + + | [facility] | [address] [facility] | [place] [address] | | | CLAIRE, CORE | [address] [...] mech. valves (2.5 - 3.5) INR | CLAIRE, CORE | + + + + + + + + | Performing | Address | City/State/Zipcode | Phone Number | | Organization | | | | + + + + + | [facility] | [address] | [place] [address] | | | SERVICES, LYDIA | [address] [...] [facility] | [address] | [place] [address] | | | SERVICES, CORE | [address] [...] | | | LABORATORY | | | CAMBODIAN | | | SERVICES, | | | [...] MDRD equation recommended by the | [facility] | | National Kidney Disease Education [...] + + + + + | [facility] | [address] | [place] [address] | | | CLAIRE, LYDIA | [address] [...] [facility] | [address] | [place], [place] | | | LÓPEZ POINT OF CARE | [address] | [address] | | | TESTS | | | [...] AMES | [address] | [place], [place] | | | JUSTINE DAWN OF JAKY | [address] | [address] | | | TESTS | | | [...] [facility] | [address] | [place], [place] | | | JUSTINE DAWN OF CARE | [address] | [address] | | | TESTS | | | [...] + + + + + | [facility] | [address] | [place], [place] | | | LÓPEZ POINT OF CARE | [address] | [address] | | | TESTS | | | | + + + + + INR (11/17/2015 5:39 AM PDT) + + + + + + | Component | Value | Ref Range | Performed | Pathologist | | | | | At | Signature | + + + + + + | INR | 2.07 (H) | 0.90 - 1.20 INR | [facility] | | | | | | LABORATORY [...] [facility] | [address] | [place] [address] | | | SERVICES, LYDIA | [address] [...] + + + + + | [facility] | [address] | [place] [address] | | | SERVICES, CORE | [address] [...] [facility] | [address] | [place] [address] | | | SERVICES, CORE | [address] [...] | | | LABORATORY | | | CAMBODIAN | | | SERVICES, | | | [...] + + + + + | [facility] | [address] | [place] [address] | | | SERVICES, LYIDA | [address] | | | + + + + + MADAY CEDILLO ONLY (11/16/2015 10:31 PM PDT) + + [...] [facility] | [address] | [place] [address] | | | SERVICES, CORE | [address] [...] [facility] | [address] | [place] [address] | | | CLAIRE, LYDIA | [address] [...] | | | POC | | | JUSTIEN DAWN | | | | | | [...] [facility] | [address] | [place], [place] | | | JUSTINE DAWN OF CARE | [facility] | [address] | | | TESTS | | | [...] [facility] | [address] | [place], [place] | | | LÓPEZ POINT OF CARE | [address] | [address] | | | TESTS | | | [...] [facility] | [address] | [place], [place] | | | JUSTINE DAWN OF CARE | [address] | [address] | | | TESTS | | | [...] + + + + + | [facility] | [address] | [place] [address] | | | LYDIA RANGEL | [address]ES[address] [...] (H) | 60 - 99 mg/dL | [facility] [...] [facility] | [address] | [place], [place] | | | JUSTINE DAWN OF CARE | [address] | [address] | | | TESTS | | | [...] [facility] | [address] | [place] [address] | | | SERVICES, CORE | [address]ES[address] [...] + + + + + | [facility] | [address] | [place] [address] | | | SERVICES, CORE | LESLY [...] | | | LABORATORY | | | CAMBODIAN | | | SERVICES, | | | [...] + + | [facility] | [address] [facility] | [place] [address] | | | SERVICES, CORE | PARK [...] + + + + + | [facility] | [address] | [place] [address] | | | CLAIRE, LYDIA | PARK [...] [facility] | [address] | [place], [place] | | | [place] [facility] | [address] | [id number] | | | TESTS | | | [...] + + + + + | [facility] | [address] | [place] [address] | | | SERVICES, CORE | LESLY [...] (H) | 60 - 99 mg/dL | [facility] [...] [facility] | [address] | [place], [place] | | | [facility] | [address] | [address] | | | TESTS | | | [...] + + + + + | [facility] | [address] | [place] [address] | | | LYDIA RANGEL | [address] | | | + [...] - [facility] | [address] | [place], [place] | | | [facility] CARE | [facility] | [address] | | | TESTS | | | [...] (H) | 60 - 99 mg/dL | [facility] [...] [facility] | [address] | [place], [place] | | | [place] OF CARE | [facility] | [address] | | | TESTS | | | [...] [facility] | [address] | [place] [address] | | | SERVICES, CORE | PARK [...] [facility] | [address] | [place] [address] | | | SERVICES, CORE | PARK [...] + + + + + | [facility] | [address] [facility] | [place] [address] | | | SERVICES, CORE | [address] | | | + + + + + MAGNESIUM, PLASMA (11/15/2015 5:49 AM PDT) + +-------+ + + + | Component | Value | Ref Range | Performed | Pathologist | | | | | At | Signature | + +-------+ + + + | MAGNESIUM,P | 2.2 | 1.8 - 2.5 mg/dL | [facility] | | | LASMA | | | [...] + + + + + | [facility] | [address] | [place] [address] | | | SERVICES, CORE | PARK [...] | | | LABORATORY | | | CAMBODIAN | | | SERVICES, | | | [...] + + + + + | [facility] | [address] | [place] [address] | | | SERVICES, CORE | LESLY [...] [facility] | [address] | [place], [place] | | | [facility] | [address] | [address] | | | TESTS | | | [...] [facility] | [address] | [place] [address] | | | LYDIA RANGEL | LESLY [...] (H) | 60 - 99 mg/dL | [facility] [...] [facility] | [address] | [place], [place] | | | [facility] CARE | [address] | [address] | | | TESTS | | | [...] [facility] | [address] | [place], [place] | | | [facility] | [facility] | [address] | | | TESTS | | | [...] + + + + + | [facility] | [address] | [place] [address] | | | SERVICES, CORE | LESLY [...] | [facility] | [address] | [place], [place] | | | [facility] | [address] | [address] | | | TESTS | | | [...] [facility] | [address] | [place] [address] | | | SERVICES, LYDIA | LESLY [...] | + + + + + | [employer] | [address] | [place] [address] | | | SERVICES, CORE | [address] | | | + + + + + MAGNESIUM, PLASMA (11/14/2015 4:19 AM PDT) + +-------+ + + + | Component | Value | Ref Range | Performed | Pathologist | | | | | At | Signature | + +-------+ + + + | MAGNESIUM,P | 2.4 | 1.8 - 2.5 mg/dL | [facility] [...] [facility] | [address] | [place] [address] | | | LYDIA RANGEL | LESLY [...] | | | LABORATORY | | | CAMBODIAN | | | SERVICES, | | | [...] + + + + + | [facility] | [address] | [place] [address] | | | SERVICES, CORE | LESLY [...] [facility] | [address] | [place], [place] | | | [facility] CARE | [address] | [address] | | | TESTS | | | [...] | [facility] | [address] | [place], [place] | | | [facility] CARE | [address] | [address] | | | TESTS | | | [...] [facility] | [address] | [place], [place] | | | [facility] | [address] | [address] | | | TESTS | | | [...] [facility] | [address] | [place], [place] | | | [facility]ARE | [address] | [address] | | | TESTS | | | [...] + + + + + | [facility] | [address] | [place] [address] | | | SERVICES, CORE | PARK [...] + + + + + | [facility] | [address] [facility] | [place] [address] | | | SERVICES, CORE | PARK [...] + + + + + | [facility] | [address] | [place] [address] | | | CLAIRE, LYDIA | LESLY [...] + + + + + | [facility] | [address] | [place] [address] | | | CLAIRE, LYDIA | LESLY [...] [facility] | [address] | [place] [address] | | | SERVICES, CORE | PARK [...] | | | LABORATORY | | | CAMBODIAN | | | SERVICES, | | | [...] the MDRD equation recommended by the | [facility] | | National Kidney Disease Education Program. [...] + + + + + | [facility] | [address] | [place] [address] | | | LYDIA RANGEL | LESLY [...] [facility] | [address] | [place] [address] | | | SERVICES, CORE | PARK [...] | | | LABORATORY | | | CAMBODIAN | | | SERVICES, | | | [...] the MDRD equation recommended by the | [facility] | | National Kidney Disease Education Program. [...] + + + + + | [facility] | [address] [facility] | [place] [address] | | | CLAIRE, LYDIA | LESLY [...] [facility] | [address] | [place], [place] | | | [facility] | [address] | [address] | | | TESTS | | | [...] [facility] | [address] | [place], [place] | | | [facility]ARE | [address] | [address] | | | TESTS | | | [...] [facility] | [address] | [place], [place] | | | [facility] OF CARE | [address] | [address] | | | TESTS | | | [...] [facility] | [address] | [place], [place] | | | [facility] | [facility] | [address] | | | TESTS | | | [...] + + + + + | [facility] | [address] | [place] [address] | | | SERVICES, CORE | PARK [...] + + + + + | [facility] | [address] | [place] [address] | | | SERVICES, CORE | PARK [...] [facility] | [address] | [place] [address] | | | LYDIA RANGEL | [address]ESLY [...] | | | LABORATORY | | | CAMBODIAN | | | SERVICES, | | | [...] + + + + + | [facility] | [address] | [place] [address] | | | SERVICES, CORE | PARK [...] + + | [facility] | [address] | [place], [place] | | | [facility]ARE | [address] | [address] | | | TESTS | | | [...] [facility] | [address] | [place] [address] | | | SERVICES, CORE | LESLY [...] [facility] | [address] | [place] [address] | | | SERVICES, CORE | PARK [...] [facility] | [address] | [place] [address] | | | SERVICES, CORE | PARK [...] [facility] | [address] | [place] [address] | | | SERVICES, LYDIA | LESLY [...] [facility] | [address] | [place], [place] | | | [facility]ARE | [address] | [address] | | | TESTS | | | [...] (H) | 60 - 99 mg/dL | [facility] [...] [facility] | [address] | [place], [place] | | | [facility] | [address] | [address] | | | TESTS | | | [...] | + + + + + | [employer] [facility] | [address] | [place] [address] | | | LYDIA RANGEL | [address] | | | + [...] [facility] | [address] | [place], [place] | | | [facility] CARE | [address] | [address] | | | TESTS | | | [...] [facility] | [address] | [place] [address] | | | SERVICES, CORE | PARK [...] + + + + + | [facility] | [address] | [place] [address] | | | SERVICES, CORE | LESLY [...] + + + + + | [facility] | [address] | [place] [address] | | | SERVICES, CORE | PARK [...] | | | LABORATORY | | | CAMBODIAN | | | SERVICES, | | | [...] + + + + + | [facility] | [address] | [place] [address] | | | SERVICES, CORE | PARK [...] [facility] | [address] | [place], [place] | | | [facility] | [address] | [address] | | | TESTS | | | [...] + + + + + | [facility] | [address] [facility] | [place] [address] | | | LYDIA RANGEL | LESLY [...] [facility] | [address] | [place], [place] | | | [facility]ARE | [address] | [address] | | | TESTS | | | [...] [facility] | [address] | [place], [place] | | | [facility] OF CARE | [address] | [address] | | | TESTS | | | [...] + + + + + | [facility] | [address] | [place] [address] | | | SERVICES, [facility] | [address] | | | + [...] [facility] | [address] | [place], [place] | | | [place]INT OF CARE | [address] | [address] | | | TESTS | | | [...] [facility] | [address] | [place] [address] | | | SERVICES, CORE | PARK [...] + + + + + | [facility] | [address] | [place] [address] | | | SERVICES, CORE | [address] | | | + + + + + MAGNESIUM, PLASMA (11/10/2015 4:05 AM PDT) + +-------+ + + + | Component | Value | Ref Range | Performed | Pathologist | | | | | At | Signature | + +-------+ + + + | MAGNESIUM,P | 2.2 | 1.8 - 2.5 mg/dL | [facility] | | | LASMA | | [...] + + + + + | [facility] | [address] | [place] [address] | | | SERVICES, CORE | PARK [...] | | | LABORATORY | | | CAMBODIAN | | | SERVICES, | | | [...] | + + + + + | [employer] | [address] | [place] [address] | | | SERVICES, CORE | P[address] [...] [facility] | [address] | [place] [address] | | | SERVICES, CORE | PARK [...] [facility] | [address] | [place] [address] | | | SERVICES, LYDIA | [address] [...] (H) | 60 - 99 mg/dL | [facility] [...] [facility] | [address] | [place], [place] | | | [facility] | [facility] | [address] | | | TESTS | | | [...] [facility] | [address] | [place] | | | [place] POINT OF CARE | [address] | [address] | | | TESTS | | | | + + + + + X-RAY PORTABLE CHEST PICC LINE CHECK (11/09/2015 3:12 PM PDT) + + + + + + | Component | Value | Ref Range | Performed | Pathologist | | | | | At | Signature | + + + + + + | XRAY | EXAM: [place] CHEST PICC LINE | | | | [...] | | + +---------+ + + | [facility] DEPARTMENT OF | | | | | [...] and meds | | | Procedure location: Unit:[facility] Room: 13 Providers: PICC Nurse | [...] | pause verifies correct patient, procedure, equipment, sales support manager | | | and site/side marked as [...] | area Cephalic vein. Catheter lot number: [id number] with a length of | | | [...] [facility] | [address] | [place], [place] | | | [facility] [facility]INT OF CARE | [address] | [address] | | | TESTS | | | [...] + + + + + | [facility] | [address] | [place] [address] | | | LYDIA RANGEL | LESLY [...] (H) | 60 - 99 mg/dL | [facility] [...] [facility] | [address] | [place], [place] | | | [facility] CARE | [address] | [address] | | | TESTS | | | [...] + + + + + | [facility] | [address] | [place] [address] | | | SERVICES, CORE | LESLY [...] + + + + + | [facility] | [address] [facility] | [place] [address] | | | SERVICES, CORE | LESLY [...] [facility] | [address] | [place] [address] | | | SERVICES, CORE | PARK [...] | | | LABORATORY | | | CAMBODIAN | | | SERVICES, | | | [...] + + + + + | [facility] | [address] [facility] | [place] [address] | | | SERVICES, LYDIA | [address] [...] [facility] | [address] | [place], [place] | | | [facility] | [facility] | [address] | | | TESTS | | | [...] (H) | 60 - 99 mg/dL | [facility] [...] + + + | [facility] | [address] | [place], [place] | | | [facility] | [address] | [address] | | | TESTS | | | [...] [facility] | [address] | [place] [address] | | | SERVICES, CORE | PARK [...] [facility] | [address] | [place] [address] | | | SERVICES, CORE | LESLY [...] + + + + + | [facility] | [address] | [place] [address] | | | SERVICES, CORE | PARK [...] [facility] | [address] | [place] | | | [facility]ARE | [address] | [address] | | | TESTS | | | [...] [facility] | [address] | [place], [place] | | | [facility] | [address] | [address] | | | TESTS | | | [...] (H) | 60 - 99 mg/dL | [facility] [...] + + + | [facility] | [address] | [place], [place] | | | [facility] OF CARE | [address] | [address] | | | TESTS | | | [...] + + + + + | [facility] | [address] | [place] [address] | | | SERVICES, LYDIA | LESLY [...] + + + + + | [facility] | [address] | [place] [address] | | | CLAIRE, LYDIA | [address] [...] | + + + + + | [employer] [facility] [employer] | [address] | [place] [address] | | | SERVICES, CORE | PARK [...] + + + + + | [facility] | [address] | [place] [address] | | | SERVICES, CORE | [address] | | | + + + + + MAGNESIUM, PLASMA (11/08/2015 6:27 AM PDT) + +-------+ + + + | Component | Value | Ref Range | Performed | Pathologist | | | | | At | Signature | + +-------+ + + + | MAGNESIUM,P | 2.1 | 1.8 - 2.5 mg/dL | [facility] [...] [facility] | [address] | [place] [address] | | | LYDIA RANGEL | [address]ES[address] [...] | | | LABORATORY | | | CAMBODIAN | | | SERVICES, | | | [...] the MDRD equation recommended by the | [facility] | | National Kidney Disease Education Program. [...] + + + + + | [facility] | [address] | [place] [address] | | | SERVICES, CORE | PARK [...] + + + + + | [facility] | [address] | [place] [address] | | | SERVICES, LYDIA | LESLY [...] [facility] | [address] | [place], [place] | | | [facility] | [address] | [address] | | | TESTS | | | [...] + + + + + | [facility] | [address] | [place] [address] | | | SERVICES, CORE | LESLY [...] [facility] | [address] | [place], [place] | | | [facility] CARE | [address] | [address] | | | TESTS | | | [...] [facility] | [address] | [place], [place] | | | [facility] [facility] OF CARE | [address] | [address] | | | TESTS | | | [...] + + + + + | [facility] | [address] | [place], [place] | | | CARDIOLOGY | [address] | [address] | | + + + + + CAPILLARY BLOOD GLUCOSE (NO CHG), POC (11/07/2015 12:26 PM PDT) + +---------+ + + + | Component | Value | Ref Range | Performed | Pathologist | | | | | At | Signature | + +---------+ + + + | BLOOD | 164 (H) | 60 - 99 mg/dL | [facility] - | | | GLUCOSE, | | | [facility] | | | POC | | | JUSTNIE DAWN | | | | | | [...] [facility] | [address] | [place], [place] | | | [facility] | [address] | [address] | | | TESTS | | | [...] | | | LABORATORY | | | CAMBODIAN | | | SERVICES, | | | [...] the MDRD equation recommended by the | [facility] | | National Kidney Disease Education Program. [...] [facility] | [address] | [place] [address] | | | SERVICES, CORE | [address] | | | + + + + + INR (11/07/2015 10:36 AM PDT) + +-------+ + + + | Component | Value | Ref Range | Performed | Pathologist | | | | | At | Signature | + +-------+ + + + | INR | 1.14 | 0.90 - 1.20 INR | [facility] | | | | | | LABORATORY [...] [facility] | [address] | [place] [address] | | | SERVICES, CORE | PARK [...] + + + + + | [facility] | [address] | [place] [address] | | | LYDIA RANGEL | LESLY [...] [facility] | [address] | [place], [place] | | | [facility] CARE | [address] | [address] | | | TESTS | | | [...] + + + + + | [facility] | [address] | [place] [address] | | | SERVICES, CORE | [address]ES[address] [...] [facility] | [address] | [place] [address] | | | SERVICES, CORE | LESLY [...] [facility] | [address] | [place] [address] | | | SERVICES, CORE | PARK [...] + + + + + | [facility] | [address] | [place] [address] | | | SERVICES, CORE | LESLY [...] [facility] | [address] | [place], [place] | | | [facility] [facility] CARE | [address] | [address] | | | TESTS | | | [...] + + + + + | [facility] | [address] | [place] [address] | | | SERVICES, CORE | [address]ESLY [...] + + + + + | [facility] | [address] | [place] [address] | | | SERVICES, LYDIA | [address]ES[address] [...] [facility] | [address] | [place] [address] | | | LYDIA RANGEL | [address]ARK [...] | | | LABORATORY | | | CAMBODIAN | | | SERVICES, | | | [...] + + + + + | [facility] | [address] | [place] [address] | | | CLAIRE, LYDIA | LESLY [...] ED | | | | | | 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 | [place], [place] | | | [facility] | [facility] | [address] | | | TESTS | | | [...] | | | TC02 | | | [facility] | | | | | | [facility] | | | | | | OF CARE | | | | | | TESTS | | + + + + + + | ED BG POC | 7.32 (L) | 7.35 - 7.45 | [facility] - | | | PH | | | [facility] | | | [...] | | | SO2 | | | [facility] | | | [...] | | | TEMP | | | [facility] | | | | | | [facility] | | | | | | OF CARE | | | | | | TESTS | | + + + + + + | ISTAT | VENOUS | | [facility] - | | | SAMPLE TYPE | | | [facility] | | | | | | JUSTINE [...] [facility] | [address] | [place], [place] | | | [place]INT OF CARE | [address] | [address] | | | TESTS | | | [...] + + + + + | [facility] | [address] | [place] [address] | | | SERVICES, CORE | LESLY [...] DEPT OF | [address] | [place], [place] | | | CARDIOLOGY | [address] | [address] | | + + + + + [...] + + + + + | [facility] | [address] | [place] [address] | | | SERVICES, CORE | [address]ARK [...] + + + + + | [facility] | [address] | [place] [address] | | | SERVICES, CORE | [address] [...] | | | LABORATORY | | | CAMBODIAN | | | SERVICES, | | | [...] + + + + + | [facility] | [address] | [place] [address] | | | SERVICES, CORE | PARK [...] [facility] | [address] | [place] [address] | | | SERVICES, CORE | [address] | | | + + + + + ED INFORMATION EXCHANGE (11/06/2015 1:26 PM PDT) + + + + + + | Component | Value | Ref Range | Performed | Pathologist | | | | | At | Signature | + + + + + + | [facility] | [id number] | | COLLECTIVE | | | | [id number] | | MEDICAL | | | | [...] | ---- 11/06/2015 | | | 13:25 [facility] Emergency | | | [address]. 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 | | | -Allergy status | | | to penicillin ED VISIT COUNT (1 YR.) Visits Location | | | ------ --------- 1 [facility] | | | [place] [facility] [...] [facility] | [address], | [place], [place] | [phone] | | TECHNOLOGIES | [address] | [address] | | + + + + + [...] | | | | | NEEDED, Starting 4/13/16 at | | PM PDT | | [...] First dose on Thu11/08/15 at | | | | | | [...] | | | | last modification) on Thu11/18/15 | | | | | | | [...] PDT | | | | | on 11/20/15 at 0700, Until | | | | [...] | | | | | 1 dose, e 11/06/15 at 2230 | | PM PDT [...] | | | | | NEEDED, Starting Tu11/20/15 at | | AM PDT | | [...] | | | oral, ONCE, 1 dose, [facility] 11/08/15 | | PM PDT | [...] | | | | ONCE, 1 dose, Thu11/08/15 at 1900 | | PM PDT | [...] | | | | ONCE, 1 dose, [place] 11/18/15 at 1745 | | PM PDT [...] | | | | ONCE, 1 dose, [place] 11/11/15 at 1145 | | PM PDT [...] | | | | ONCE, 1 dose, [facility] 11/13/15 at 0845 | | AM PDT [...] | | | | ONCE, 1 dose, [facility] 11/16/15 at 1730 | | PM PDT [...] | | | | last modification) on 11/21/15 | | | | | | | [...] | | | | | modification) on 11/13/15 at | | | | | | [...]
--- OUTSIDE RECORDS SUMMARY | ~2019-05-23 | XMS | Encounter Summary ---
Demographics + + + | Address | [address] | | | [place] [address] | + + + | Home Phone [...] + | Katalina Padilla | ECON | [address] | | | | | [place], [place] | | | | | [address] | | + + + + + | Ellie Vang | ECON | Unknown | | + + + + + Care Team Providers + +------+ + | Care Motor Vehicle Licence Examiner Name | Role | Phone | + [...] + + | 06/23/ | Hospital | [facility] [address] | Kaleb Wilcox MD | | | 2017 | Encounter | [address] | [address] | | | | | [id number] | [place], [place] | | | | | [place], | [address] | | | | | [place] [address] | [phone] | | | | | [phone] | | | +--------+ + + + [...] hours or on weekends and holiday Hospital Resistor Tester toll free [phone]. [phone] and have the GI doctor hotel operations manager paged. The provider who performed your procedure is: Dr. Wilcox Results of your EGD: Dilation performed. You may resume your regular diet. Follow up Appointments with: Follow up with Dr. Pandey in bariatric surgery, thank you for choosing [facility]! Your primary care provider or referring provider [...] | | 0 | | | | [id number] | mouth two times | | | [...] 1-2 weeks for retreatment if symptoms persist. Kaleb Black MD - 1 08/23/2017 2:35 PM PST PRE PROCEDURE NOTE: MR# [id number] Subjective: Elzbieta Cristina is a 43 y.o. [...] | +--------+ + + + + | 11/07/ | Telephone-S | Pre-operative | | | [...] | | | | | [place], [place] | | | | | | [address] | | | | | | [phone] | | | | | | | [...] + + +--------- -----+ | Narrative | Zuleimae d At | + +--------- -----+ | MRN: | [facility] | | [id number] Date: 06/23/2018Patient Name: Elzbieta Curtis #: | ENDOSCOP Y | | [id number] of : 1975CSN: [id number] Type: | | | AmbulatoryRoom: SORProcedure: Upper GI | | | endoscopyIndications: Nausea with vomiting, Status post | | | Ljis-iz-UWwfmpjahp: KALEB WILCOX MD (Doctor)JOSE | | | NASIMA, Code And Test Clerk | | | (Code And Test Clerk)Referring MD: DANIELLE GARCÍAPRemateusz | | | Provider: Medicines: Monitored Anesthesia [...] | | | The Olympus [id number] Gastroscope #[id number] was | | | introduced through the [...] endoscope without resistance. The | | | rckwm-xa-lklaunx limb was characterized by healthy appearing | [...] Initiated On: | | | 06/23/2018 3:58 [facility] Letter to: FADI GOODRICH DO | | [...] | | | POC | | | MARQ[facility]OS | | | [...] + + + | NKECHI AMES | [address] | [place], [place] | | | [facility] | [address] | [address] | | | TESTS | | | [...] | | | | | Until Jasmyne 06/24/18 at 0027, | | | | [...] oral, INTRAPROCEDURE | | | PRN, Starting 06/23/18 at | | | 1324, Until Jasmyne 06/24/18 at 0027, | | | sore oropharynx | | + +---+ | | | + +---+ | meperidine (DEMEROL) injection | | | 25 mg 25 mg, intravenous, | | | POSTPROCEDURE PRN, 1 dose, | | | Starting Thu06/23/18 at 1532, | | | Until Jasmyne 06/24/18 at 0027, | | | shivering | | + +---+ | | | + +---+ | naloxone (NARCAN) injection | | | intravenous, POSTPROCEDURE PRN, | | | Starting Thu06/23/18 at 1532, | | | Until [facility] 06/24/18 at 0027, | | | hypopnea | | + +---+ | | | + +---+ | ondansetron (ZOFRAN) injection | | | 4 mg 4 mg, intravenous, | | | POSTPROCEDURE PRN, 1 dose, | | | Starting Thu06/23/18 at 1532, | | | Until [facility] 06/24/18 at 0027, | | | [...] oral, HSD PRN, Starting | | | 06/23/18 at 1324, Until Jasmyne | | | [...]
--- OUTSIDE RECORDS SUMMARY | ~2019-05-23 | XMS | Encounter Summary ---
Demographics + + + | Address | [address] | | | [place] [address] | + + + | Home Phone [...] [place], [place] | | | | | [address] | | + + + + + | Ellie Vang | ECON | Unknown | | + + + + + Care Team Providers + +------+ + | Care Leisure Travel Agent Name | Role | Phone | [...] [place]iles | | | | | | [facility] | [facility] | | | | | | Brock [facility] | Brock Mailcode: | | | | | | [facility] | [address] | | | | | | [place], [place] | Phsyicians | | | | | | [address] | [address] | | | | | | Phone: | [place], [place] | | | | | | [phone] | [address] | | | | | | | Phone: | | | | | | | [phone] | | | | | | | Fax: | | | | | | | [phone] | +--------+--------+ + + + + Encounter [...] [facility] [address] | Clarence Gutiérrez [place], | | | | | [place] | [place] [address] | | | | | Mailcode: [address] | [phone] | | | | | [facility] | | | | | | [address] [place], [place] | | | | | | [address] | | | | | | [phone] | | | +--------+---------+ + + + [...] Axel Gonzales MD - 03/06/2014 1[facility] Attending: [...] a HIDA scan to be done in [place] to verify that she does not have [...] Surgery Resident Department of General Surgery Pager: [phone] I saw and evaluated the patient. I agree with the findings and the plan of care as dequan han in the resident s note. PRADIP STARR MD [facility] GENERAL SURGERY AT [facility] [address] [facility] Mailcode: [address] [place] [address] documented in this encoun ter [...] | | 2018 | Visit | | [address] | | | | | | [place], [place] | | | | | | [address] | | | | | | [phone] | | | | | | | [...] | + + + + + | [facility] | [address] | [place] [address] | | | SERVICES, CORE | [address] | | | + + + + + documented in this encounter Visit Diagnoses + + | Diagnosis | + + | Cholecystitis - Primary Cholecystitis, unspecified | + + documented in this encounter
--- OUTSIDE RECORDS SUMMARY | ~2019-05-23 | XMS | Clinical Summary ---
Demographics + + + | Address | [address] | | | [place] [address] | + + + | Home Phone | | + + + | Preferred Language | Unknown | + + + | Marital Status | | + + + | Moravian Affiliation | Unknown | + + + | Race | Unknown | + + + | Ethnic Group | Unknown | + + + Author + + + | Author | [facility] (Historical as of | | | 03-12-19) | + + + | Organization | [facility] (Historical as of | | | 03-12-19) [...] Team Providers + +------+ + | Care Wirer Street Light Name | Role | Phone | + [...] | | | Activ | | (DRISDOL) [address] | mouth twice a week. | | [...] | obesity, she is enrolled in the [facility] bariatric program. She has | | [...] Cath: naLast Echo, 01[facility]02/2016 [facility]): TDS, cardiac chamber dimensions grossly NML, LVEF [...] obesityPickwickian syndrome Recent | | admission to [facility] for 100lb weight | | gain- DC on diuresis on 03/06/2016- she feel improvedShe was on | | Metolazone and Torsemide prior to hospitalization- both have | | better bioavailability than lasix in gut edema but she retained | | 100lbs - how ever she is currently on only Torsemide 100mg Q12hrs | | started in [place] and her weight been stable sinceShe has no | | other complaints.She is pending to see NephrologistCiriloo | | 02/16/2016([facility] Normal LV systolic function, mildly | | [...] + + | 02/22/ | Ancillary | | Sulema Altamirano | History of sinus | | 2019 | Procedure | | SELINA Pope | tachycardia; HTN, | | | | | | goal below 130/80; | | | | | | Chronic diastolic | | | | | | heart failure (HCC); | | | | | | History of | | | | | | bariatric surgery | +--------+ + + + + from [...] + + from Last 3 Months Results ECHO outside interpretation standard (02/22/2019 3:17 [...] | + + + | Patient Name: Dylan Romero Date of : 1975 | [facility] | | Performing Physician: Darryl Merrill [...] MV A Jeffrey: 0.61 m/s MV Dec Stafford: 2.43 m/s2 | | | MV DecT: 247.51 ms MV E Jeffrey: 0.60 m/s MV E/A Ratio: | | | 0.98 MV PHT: 71.78 ms MVA By PHT: 3.06 cm2 Septal e': | | | 0.06 m/s Septal E/e': 9.54 Lateral e': 0.10 m/s Lateral | | | E/e': 5.84 RAP: 5 mmHg RV s': 0.11 m/s Minister Of Religion: | | | DH Authenticated by: Darryl [facility] Report Date/Time: 02-22-2019 | | | 20:8:36 | | + + + + --------+ | Procedure Note | + --------+ | Aditya, Rad Results In - 02/22/2019 8:10 PM PDT Patient Name: Sherrell Romero | | : 1975Accession: [id number] Physician: Darryl | | Alsamara INDICATIONS------ | [...] cmLVIDd: 4.70 cmLVPWd: 0.79 cmLVOT Area: 3.58 [id number] Diam: 2.13 | | cm%FS: 39.25 %EF(Teich): [...] mlLAESV Index (A-L): 14.72 ml/m2LAAs A2C: 10.03 hp5DFCCS A-L A2C: 22.69 | | mlLALs A2C: 3.76 cmLAAs A4C: 13.41 xj0PWBBE A-L A4C: 36.80 mlLALs A4C: 4.14 | | cmRAAs: 11.18 ff9DRSSY A-L: 22.84 mlRAESV MOD: 22.10 mlRALs: 4.64 cmTAPSE: | | 2.04 cmAV maxP.55 mmHgAV meanP.52 mmHgAV Vmax: 1.27 m/Genesis Vmean: 0.88 | | m/Genesis VTI: 26.50 cmAVA Vmax: 2.49 cm2AVA (VTI): 2.39 ur4ICDR Vmax: 0.00 | | cm2/m2AVAI (VTI): 0.00 cm2/m2LVOT maxP.17 mmHgLVOT meanP.82 mmHgLVSI Dopp: | | 30.83 ml/m2LVSV Dopp: 63.52 mlLVOT Vmax: 0.89 m/sLVOT Vmean: 0.65 m/sLVOT VTI: | | 17.71 cmMV A Jeffrey: 0.61 m/sMV Dec Stafford: 2.43 m/s2MV DecT: 247.51 msMV E Jeffrey: | | 0.60 m/sMV E/A Ratio: 0.98 MV PHT: 71.78 msMVA By PHT: 3.06 ks6Igdxfd e': 0.06 | | m/sSeptal E/e': 9.54 Lateral e': 0.10 m/sLateral E/e': 5.84 RAP: 5 mmHgRV s': | | 0.11 m/sSonographer: DHAuthenticated by: Darryl [facility] Date/Time: 02-22-2019 | | 20:8:36IMPRESSION:1. Overall left [...] A Jeffrey: 0.61 m/s | |MV Dec Stafford: 2.43 m/s2 | |MV DecT: 247.51 ms | |MV E Jeffrey: 0.60 m/s | |MV E/A Ratio: 0.98 | |MV PHT: 71.78 ms | |MVA By PHT: 3.06 cm2 | |Septal e': 0.06 m/s | |Septal E/e': 9.54 | |Lateral e': 0.10 m/s | |Lateral E/e': 5.84 | |RAP: 5 mmHg | |RV s': 0.11 m/s | | | |Minister Of Religion: | |Authenticated by: Darryl Merrill | |Report [...] | + + + + + | [facility] | [address] | [place] [address] | | + + + + + [...] +------+-------+ + | MEDICAID | EASTER | [id number] | | | [address] | | | N | | | | [place] | | | [place] | | | | [address] | | | CRAFT CENTER DIRECTOR | | | | | + +--------+ +------+-------+ + + +--------+ +--------+ + + | Guarantor Name | Accoun | Relation to | Date | Phone | Billing Address | | | t Type | Patient | of | | | | | | | | | | + +--------+ +--------+ + + | DYLAN ROMERO | Person | Self | [birth year] | Home: | [address] | | | al/Fam | | 1974 | [phone] [address] [place] | | | mireya | | | [phone] | [phone] | + +--------+ +--------+ + +
--- OUTSIDE RECORDS SUMMARY | ~2019-05-23 | XMS | Encounter Summary ---
Demographics + + + | Address | [address] | | | [place] [address] | + + + | Home Phone [...] [place], [place] | | | | | [address] | | + + + + + | Ellie Vang | ECON | Unknown | | + + + + + Care Team Providers + +------+ + | Care Knockout Worker Name | Role | Phone | [...] | Center at [facility] [address] | ACNP [address] | | | | | [address] | [place], [place] | | | | | Mailcode: [place] | [address] | | | | | for Health and | | | | | | [facility] [address] | | | | | | [facility] [place] | | | | | | [address] | | | | | | | [...] [place] | | | | | | [address] | | | | | | [phone] | | | | | | | | +--------+ + + + + documented as of this encounter Visit Diagnoses Not on filedocumented in this encounter"
--- OUTSIDE RECORDS SUMMARY | ~2019-05-23 | XMS | Encounter Summary ---
Demographics + + + | Address | [address] | | | [place] [address] | + + + | Home Phone [...] [place], [place] | | | | | [address] | | + + + + + | Ellie Vang | ECON | Unknown | | + + + + + Care Team Providers + +------+ + | Care Manufacturing Job Titles Name | Role | Phone | + [...] | [facility] | | | with DENTAL APPLIANCE REPAIRER | | hypertension | [address] | [address] | | | | | Right | [address] | [address] | | | | | heart | [place], [place] | Mailcode: | | | | | failure | [address] | Center for | | | | | ([facility]) Type | Phone: | Health and | | | | | 2 diabetes | [phone] | Healing, | | | | | mellitus | Fax: | Building [address] | | | | | without | [phone] | [place], [place] | | | | | complication | | [address] | | | | | , with | | Phone: | | | | | long-term | | | | | | | current use | | Fax: | | | | | of insulin | | [phone] | | | | | ([facility]) | | | [...] | 2018 | Visit | Center at [facility] [address] | [address] | BMI of 70 and over, | | | | [address] | [place], [place] | adult ([facility]) (Primary | | | | Mailcode: Center | [address] | Dx); Diabetes | | | | for [place] and | [phone] | mellitus type 2 | | | | [facility], [address] | | without retinopathy | | | | [place], [place] | | ([facility]); | | | | [address] | | Intertriginous | | | | [phone] | | candidiasis; PCOS | | | | | | (polycystic ovarian | | | | | | syndrome); AMARA | | | | | | treated with BiPAP; | | | | | | Chronic diastolic | | | | | | heart failure ([facility]); | | | | | [...] 10/30/2017 10:00 AM PDTPlease visit with our [facility] Forensic Structural Engineer (RD) for instructions about your Bariatric diet, assistance with calorie c ounts, tips and tricks for working with your diet restrictions, and recipes after bariatric surgery. Daily yogurt; even just 1 tablespoon twice a day will provide enough probiotics to optimize digestion. Try to use a high-quality, probiotic-dense yogurt (eg Zaria's, Kobifield, Stacie lala Kefir, Epic Ambulatory Analyst [employer]'s Panamanian Yogurt). Remember to chew your food well, [...] to the healing stomach. There are also long-term complications of poor wound healing and gastric [...] Dr. Andie Brian Incisional hernia repair 03/01/2015 [facility]/ Dr. Cantu. Primary fascial closure and [...] 1 tablet by mouth once daily CALCIUM CRB&ZZK-U3-SBY76-GENIS ORAL Take 2 tablets by mouth two [...] History Narrative Updated 11/09/15 She lives in [place] with her mother and her sister (also her caregiver) lives in an artment/duplex below. She has 2 grandchildren (age 4 and 7) who live with her daughter and son-in-law Her boyfriend lives in [place] HFpEF, DM2, HTN, Sleep Apnea (unable to [...] program here and refer her to our self pay specialist who also has expertise in physical [...] a 4-5% rate of reoperation over the termite exterminator (i.e. years), as well as other late [...] and may approach 5%. We reviewed the [facility] consent form. We discussed that we did [...] | | | | | [place], [place] | | | | | | [address] | | | | | | [phone] | | | | | | | [...] (HCC) | | | | | | AMARA treated with | | | | | | BiPAP Chronic | | | | | | diastolic heart | | | | | | failure (HCC) | | | | | | Essential [...] | | | | | determined by [employer] | | | | | | Laboratories. See | | | | | | Compliance Statement B: | | | | | | [facility]./CSPerformed | | | | | | by [employer],[address] | | | | | | [facility],[place] | | | | | | [address] | | | | | | [phone].[facility]. | | | | | | [facility] hospital[facility]mael MD, | | | | | [...] + + | [facility] | [address] | [place], [place] | | | [facility] | | [address] | | + + + + + [...] | | | LABORATORY | | | LATVIAN | | | SERVICES, | | | [...] the MDRD equation recommended by the | [facility] | | National Kidney Disease Education [...] [facility] | [address] | [place] [address] | | | SERVICES, CORE | PARK [...] [facility] | [address] | [place] [address] | | | SERVICES, CORE | PARK [...] [facility] | [address] | [place] [address] | | | CLAIRE, LYDIA | PARK [...] | + + + + + | [facility] | [address] | [place] [address] | | | SERVICES, CORE | CLARENCE [...] [facility] | [address] | [place] [address] | | | SERVICES, CORE | PARK [...] + + + | [facility] | [address] | [place] [address] | | | SERVICES, CORE | CLARENCE [...]
--- OUTSIDE RECORDS SUMMARY | ~2019-05-23 | XMS | Encounter Summary ---
Demographics + + + | Address | [address] | | | [place] [address] | + + + | Home Phone [...] + + + + + | Katalina aPdilla | ECON | [address] | | | | | [place], [place] | | | | | [address] | | + + + + + | Ellie Vang | ECON | Unknown | | + + + + + Care Team Providers + +------+ + | Care Lithographic Etcher Name | Role | Phone | + [...] [facility] [address] | [place], [place] | | | | | [place] Mailcode: | [address] | | | | | [facility] | [phone] | | | | | and [place], | | | | | | [address] | | | | | | [place], [place] | | | | | | [address] | | | | | | [phone] | | | +--------+ + + + [...] Discharge Instructions Instructions Keerthi Bernard RN - 04/07/2019[place] Care Instructions after EGD (Upper Endos copy) [...] hours or on weekends and holiday Hospital Well Drill Operator Rotary Drill toll free [phone]. [phone] and have the GI doctor ethylbenzene converter helper paged. The provider who performed your procedure: [...] | | 0 | | | | CRB&JEJ-N8-CDT35-GEN | mouth two times | | | [...] from the original. PRE PROCEDURE NOTE: MR# [id number] Subjective: Elzbieta Cristina is a 44 y.o. [...] | | | | | [place], [place] | | | | | | [address] | | | | | | [phone] | | | | | | | [...] + | MRN: | [facility] | | [id number] Date: 04/07/2019Patient Name: Elzbieta Curtis #: | ENDOSCOPY | | [id number] of : 1975CSN: [id number] Type: | | | AmbulatoryRoom: Endo 5Procedure: Upper GI | | | endoscopyIndications: Generalized abdominal pain, Nausea | | | with vomitingProviders: TAL LUND MD | | | (Doctor), KEERTHI BERNARD RN (Nurse), | | | EREN SLATER (Electronic Engraver)Referring MD: SYLVIA Kilpatrick | | | KENNY [...] | | | The Olympus [id number] Endoscope #[id number] | | | was introduced through the [...]
--- OUTSIDE RECORDS SUMMARY | ~2019-05-23 | XMS | Encounter Summary ---
Demographics + + + | Address | [address] | | | [place] [address] | + + + | Home Phone [...] [place], [place] | | | | | [address] | | + + + + + | Ellie Vang | ECON | Unknown | | + + + + + Care Team Providers + +------+ + | Care Upper And Bottom Lacer Hand Name | Role | Phone | [...] | 2019 | | Center at [facility] [address] | | Review | | | | [address] | | | | | | Mailcode: [place] | | | | | | [facility] Health and | | | | | | [facility] 2 | | | | | | [place], [place] | | | | | | [address] | | | | | | [phone] | | | +--------+ + + + [...] | | 2018 | Visit | | [address] | | | | | | [place], [place] | | | | | | [address] | | | | | | [phone] | | | | | | | | +--------+ + + + + documented as of this encounter Visit Diagnoses Not on filedocumented in this encounter"
--- OUTSIDE RECORDS SUMMARY | ~2019-05-23 | XMS | Encounter Summary ---
Demographics + + + | Address | [address] | | | [place] [address] | + + + | Home Phone [...] [place], [place] | | | | | [address] | | + + + + + | Ellie Vang | ECON | Unknown | | + + + + + Care Team Providers + +------+ + | Care Fleet Sales Manager Name | Role | Phone | [...] Medical Records | | 2013 | | [place] [facility] [place] [address] | [address] | Review ([facility] - | | | | [address] | [address] [place] [address] | OUTSIDE RECORDS) | | | | Mailcode: [place] | [place], [place] | | | | | [facility] and | [address] | | | | | [place] [address] | [phone] | | | | | [place], [place] | | | | | | [address] | | | | | | [phone] | | | +--------+ + + + [...] | | | | | [place] | | | | | | [address] | | | | | | [phone] | | | | | | | | +--------+ + + + + documented as of this encounter Visit Diagnoses Not on filedocumented in this encounter"
--- OUTSIDE RECORDS SUMMARY | ~2019-05-23 | XMS | Encounter Summary ---
Demographics + + + | Address | [address] | | | [place] [address] | + + + | Home Phone [...] [place], [place] | | | | | [address] | | + + + + + | Ellie Vang | ECON | Unknown | | + + + + + Care Team Providers + +------+ + | Care Crystallography Teacher Name | Role | Phone | + +------+ + | Fadi Goodrich DO | PCP | | + +------+ + Encounter Details +--------+ + + + + | Date | Type | Department | Care Team | Description | +--------+ + + + + | 03/04/ | Telephone | Dig[facility]ive [facility] | Ion Pandey, | | | 2018 | | [place] at [facility] [address] | MD [address] | | | | | [address] | [place], [place] | | | | | Mailcode: [place] | [address] | | | | | for Health and | | | | | | [facility] 2 | | | | | | [facility] [place] | | | | | | [address] | | | | | | | [...] [place] | | | | | | [address] | | | | | | [phone] | | | | | | | | +--------+ + + + + documented as of this encounter Visit Diagnoses Not on filedocumented in this encounter"
--- OUTSIDE RECORDS SUMMARY | ~2019-05-23 | XMS | Encounter Summary ---
Demographics + + + | Address | [address] | | | [place] [address] | + + + | Home Phone [...] + | Katalina Padilla | ECON | [address] | | | | | [place], [place] | | | | | [address] | | + + + + + | Ellie Vang | ECON | Unknown | | + + + + + Care Team Providers + +------+ + | Care Insole Channeler Name | Role | Phone | + +------+ + | Fadi Goodrich DO | PCP | | + +------+ + Encounter Details +--------+------+ + + + | Date | Type | Department | Care Team | Description | +--------+------+ + + + | 06/16/ | Lab | Laboratory at [facility] | | Morbid obesity with | | 2012 | | [address] | | BMI of 70 and over, | | | | [place], [place] | | adult (HCC); Vitamin | | | | [address] | | D deficiency | | | | [phone] | | disease; | | | | [...] | | | | | [place], [place] | | | | | | [address] | | | | | | [phone] | | | | | | | [...] at | | | | | | [email or web address] Test | | | | | | developed and | | | | | | characteristics | | | | | | determined by | | | | | | [facility]. See | | | | | | Compliance Statement B: | | | | | | [email or web address] | | | | | | by [facility],[address] | | | | | | [address], [facility] | | | | | | [address] | | | | | | [phone]. | | | | | | pastora, [...] at | | | | | | [employer] Test | | | | | | developed and | | | | | | characteristics | | | | | | determined by | | | | | | [facility]. See | | | | | | Compliance Statement B: | | | | | | [facility]/CS | | | | + + + + + + + + | Specimen | + + | Blood - Blood | + + + + + + + | Performing | Address | City/[place] | Phone Number | | Organization | | | | + + + + + | [facility] | [address] | [place], [place] | | | [facility] | | [address] | | + + + + + [...]
--- OUTSIDE RECORDS SUMMARY | ~2019-05-23 | XMS | Encounter Summary ---
Demographics + + + | Address | [address] | | | [place] [address] | + + + | Home Phone [...] [place], [place] | | | | | [address] | | + + + + + | Ellie Vang | ECON | Unknown | | + + + + + Care Team Providers + +------+ + | Care Electric Pile Driver Operator Name | Role | [...] | | 2019 | | Center at [facility] [address] | AGACNP [address] | | | | | [address] | [place], [place] | | | | | Mailcode: [place] | [address] | | | | | for [facility] and | | | | | | [place] [address] | | | | | | [place], [place] | | | | | | [address] | | | | | | | [...] | | | | | [place], [place] | | | | | | [address] | | | | | | [phone] | | | | | | | | +--------+ + + + + documented as of this encounter Visit Diagnoses Not on filedocumented in this encounter"
--- OUTSIDE RECORDS SUMMARY | ~2019-05-23 | XMS | Encounter Summary ---
Demographics + + + | Address | [address] | | | [place] [address] | + + + | Home Phone [...] [place], [place] | | | | | [address] | | + + + + + | Ellie Vang | ECON | Unknown | | + + + + + Care Team Providers + +------+ + | Care Laborer Wrecking And Salvaging Name | Role | Phone | + +------+ + PCP | Unavailable | + +------+ + Encounter Details +--------+ + + + + | Date | Type | Department | Care Team | Description | +--------+ + + + + | 05/13/ | Results | | Other, Faculty | | | 1992 | Only | | [phone] | | +--------+ + + + + [...] | | | | | [place] [facility] [place] | | | | | | [address] | | | | | | [phone] | | | | | | | [...] | + + + | Ordered by CARIAN LANDA | | + + + + +---------+ + + | Performing | Address | City/State/Zipcode | Phone Number | | Organization | | | | + +---------+ + + | [facility] DEPARTMENT OF | | | [...] + + + | Ordered by CARINA LADNA | | + + + + +---------+ + + | Performing | Address | City/State/Zipcode | Phone Number | | Organization | | | | + +---------+ + + | [facility] DEPARTMENT OF | | | [...] | | | | | | | [phone] SCAN OF | | | | | [...] + +---------+ + + | [facility] DEPARTMENT OF | | | | | RADIOLOGY | | | | + +---------+ + + documented in this encounter Visit Diagnoses Not on filedocumented in this encounter"
--- OUTSIDE RECORDS SUMMARY | ~2019-05-23 | XMS | Encounter Summary ---
Demographics + + + | Address | [address] | | | [place] [address] | + + + | Home Phone [...] [place], [place] | | | | | [address] | | + + + + + | Ellie Vang | ECON | Unknown | | + + + + + Care Team Providers + +------+ + | Care Sales Representative [employer] Name | Role | Phone | + [...] | | | | | | | [place], [place] | | | | | | | [address] | | | | | | | Phone: | | | | | | | [phone] | | | | | | | Fax: | | | | | | | [phone] | +--------+--------+ + + + + Encounter [...] | | | [address] | [facility] [place] | Dx) | | | | Mailcode: L[address]A | [address] | | | | | [facility] | [phone] | | | | | [address] [facility] [place] | | | | | | [address] | | | | | | [phone] | | | +--------+---------+ + + + [...] Rocha MD,MPH - 11/05/2015 2:09 PM PDT [facility] Department of Surgery EGS/TRAUMA Surgery Clinic Note [...] 500 mg by mouth once daily. CALCIUM CRB&VAU-D3-MVR19-GENIS ORAL Take 1 tablet by mouth two [...] were answered. Christian Rocha MD MPH FACS [facility] inspection manager Trauma, Critical Care & Acute Care Surgery [facility] [place] [phone] documented in thi s encounter Plan of [...] | | 2018 | Visit | | [address] | | | | | | [place], [place] | | | | | | [address] | | | | | | [phone] | | | | | | | | +--------+ + + + + documented as of this encounter Visit Diagnoses + + | Diagnosis | + + | Ventral hernia without obstruction or gangrene - Primary Ventral hernia, unspecified, | | without mention of obstruction or gangrene | + + documented in this encounter"
--- OUTSIDE RECORDS SUMMARY | ~2019-05-23 | XMS | Encounter Summary ---
Demographics + + + | Address | [address] | | | [place] [address] | + + + | Home Phone [...] [place], [place] | | | | | [address] | | + + + + + | Ellie Vang | ECON | Unknown | | + + + + + Care Team Providers + +------+ + | Care Theater Education Teacher Name | Role | Phone [...] | [facility] | | | with LEAD ASSEMBLER | | hypertension | [address] | [address] | | | | | Right | [address] | [address] | | | | | heart | [place], [place] | Mailcode: | | | | | failure | [address] | Center for | | | | | ([facility]) Type | Phone: | Health and | | | | | 2 diabetes | [phone] | Healing, | | | | | mellitus | Fax: | Building 2 | | | | | without | [phone] | [place], [place] | | | | | complication | | [address] | | | | | , with | | Phone: | | | | | long-term | | | | | | | current use | | Fax: | | | | | of insulin | | [phone] | | | | | ([facility]) | | | | | | | [...] | | 2 diabetes | JEAN, | [place], [place] | | | | | mellitus | [place] [address] | [address] | | | | | without | Phone: | Phone: | | | | | complication | [phone] | [phone] | | | | | (HCC) | Fax: | Fax: | | | | | Procedures | [phone] | [phone] | | | | | DC EST [...] 2017 | Visit | Preventive at [facility] | [address] | hypertension | | | | [address] | Ave [place], [place] | (Primary Dx); Right | | | | Mailcode: [facility] | [address] | heart failure (HCC); | | | | [facility] | [phone] | Type 2 diabetes | | | | and Healing, | | mellitus without | | | | Building [address] | | complication, with | | | | [place], [place] | | long-term current | | | | [address] | | use of insulin (HCC) | | | | [phone] | | | +--------+---------+ + + + [...] 81 mg by mouth once daily. CALCIUM CRB&IVX-W9-GLP21-GENIS ORAL Take 2 tablets by mouth two [...] then she has worked closely with her [facility] doctor and has been been [...] 12 CREATININE PLASMA (LAB) 0.79 EGFR - UKRAINIAN >60 EGFR NON -UKRAINIAN >60 GLUCOSE, PLASMA (LAB) 170 (H) CALCIUM, [...] [place] | | | | | | [address] | | | | | | [phone] | | | | | | | [...] [facility] | [address] | [place] [address] | | | LYDIA RANGEL | CLARENCE [...] + + + | [facility] | [address] | [place], [place] | | | SERVICES, LIPID | [address] | [address] | | + + + + + [...] glycated albumin should be considered for monitoring longterm | LABORATORY | | glycemic control in [...] + + | [facility] | [address] | [place] [address] | | | SERVICES, SPECIAL | CLARENCE [...] | | | LABORATORY | | | UKRAINIAN | | | SERVICES, | | | [...] + | [facility] | [address] | [place] [address] | | | SERVICES, CORE | PARK [...]
--- OUTSIDE RECORDS SUMMARY | ~2019-05-23 | XMS | Encounter Summary ---
Demographics + + + | Address | [address] | | | [place] [address] | + + + | Home Phone [...] [place], [place] | | | | | [address] | | + + + + + | Ellie Vang | ECON | Unknown | | + + + + + Care Team Providers + +------+ + | Care Gauntlet Pairer Name | Role | Phone | + [...] | Visit | Center at [facility] [address] | | (Primary Dx) | | | | [address] | | | | | | Mailcode: Center | | | | | | for Health and | | | | | | [facility] 2 | | | | | | [place], [place] | | | | | | [address] | | | | | | [phone] | | | +--------+---------+ + + + [...] of Class: 2:00 until 3:00 (60 minutes ybef-sr-yjpq with patient) OBJECTIVE: Height: Ht Readings from [...] or sharing information. Yes Yuli [address], [facility], [place] Pager# [phone] documented in this enc ounter Plan of [...] | | | | | [place], [place] | | | | | | [address] | | | | | | [phone] | | | | | | | | +--------+ + + + + documented as of this encounter Visit Diagnoses + + | Diagnosis | + + | Morbid obesity (HCC) - Primary Morbid obesity | + + documented in this encounter
--- OUTSIDE RECORDS SUMMARY | ~2019-05-23 | XMS | Encounter Summary ---
Demographics + + + | Address | [address] | | | [place] [address] | + + + | Home Phone [...] + | Katalina Padilla | ECON | [address] | | | | | [place], [place] | | | | | [address] | | + + + + + | Ellie Vang | ECON | Unknown | | + + + + + Care Team Providers + +------+ + | Care Cylinder Die Machine Operator Name | Role | Phone [...] [facility] [address] | LATHER APPRENTICE [address] | | | | | [address] [place] | [facility] 350 | | | | | Mailcode: Center | [place], [place] | | | | | [facility] Health and | [address] | | | | | [facility] 2 | [phone] | | | | | [place], [place] | | | | | | [address] | | | | | | [phone] | | | +--------+ + + + [...] | | | | | [place] [facility] [place] | | | | | | [address] | | | | | | [phone] | | | | | | | | +--------+ + + + + documented as of this encounter Visit Diagnoses Not on filedocumented in this encounter"
--- OUTSIDE RECORDS SUMMARY | ~2019-05-23 | XMS | Encounter Summary ---
Demographics + + + | Address | [address] | | | [place] [address] | + + + | Home Phone [...] + | Katalina Padilla | ECON | [address] | | | | | [place], [place] | | | | | [address] | | + + + + + | Ellie Vang | ECON | Unknown | | + + + + + Care Team Providers + +------+ + | Care Cryptologic Technician Operator/Analyst Name | Role | Phone | + [...] | | 2014 | | Center at [facility] [address] | [facility] [address] | | | | | [address] | [place], [place] | | | | | Mailcode: Center | [address] | | | | | for Health and | | | | | | [place] [address] | | | | | | [place], [place] | | | | | | [address] | | | | | | [phone] | | | +--------+ + + + [...] | | | | | [place], [place] | | | | | | [address] | | | | | | [phone] | | | | | | | | +--------+ + + + + documented as of this encounter Visit Diagnoses Not on filedocumented in this encounter"
--- OUTSIDE RECORDS SUMMARY | ~2019-05-23 | XMS | Encounter Summary ---
Demographics + + + | Address | [address] | | | [place] [address] | + + + | Home Phone [...] + | Katalina Padilla | ECON | [address] | | | | | [place], [place] | | | | | [address] | | + + + + + | Ellie Vang | ECON | Unknown | | + + + + + Care Team Providers + +------+ + | Care Dining Room Helper Name | Role | Phone | [...] | | | | | | [place] [address] | | | +--------+ + + + [...] | | | | | [place] | | | | | | [address] | | | | | | [phone] | | | | | | | | +--------+ + + + + documented as of this encounter Visit Diagnoses Not on filedocumented in this encounter"
--- OUTSIDE RECORDS SUMMARY | ~2019-05-23 | XMS | Encounter Summary ---
Demographics + + + | Address | [address] | | | [place] [address] | + + + | Home Phone [...] [place], [place] | | | | | [address] | | + + + + + | Ellie Vang | ECON | Unknown | | + + + + + Care Team Providers + +------+ + | Care Center Hole Reamer Name | Role | Phone | + [...] | | 2014 | | Center at [facility] 34[address] | [facility] [address] | | | | | [address] | [place], [place] | | | | | Mailcode: Center | [address] | | | | | for Health and | | | | | | [place] [address] | | | | | | [place], [place] | | | | | | [address] | | | | | | [phone] | | | +--------+ + + + [...] | | | | [place], [place] | | | | | | [address] | | | | | | [phone] | | | | | | | | +--------+ + + + + documented as of this encounter Visit Diagnoses Not on filedocumented in this encounter"
--- OUTSIDE RECORDS SUMMARY | ~2019-05-23 | XMS | Encounter Summary ---
Demographics + + + | Address | [address] | | | [place] [address] | + + + | Home Phone [...] + | Katalina Padilla | ECON | [address] | | | | | [place], [place] | | | | | [address] | | + + + + + | Ellie Vang | ECON | Unknown | | + + + + + Care Team Providers + +------+ + | Care Release And Technical Records Clerk Name | Role | Phone | + +------+ + | Fadi Goodrich DO | PCP | | + +------+ + Encounter Details +--------+ + + + + | Date | Type | Department | Care Team | Description | +--------+ + + + + | 10/19/ | Abstract | Digestive Health | Clinic, Surgery | | | 2017 | | [place] [facility] [address] | | | | | | [address] | | | | | | Mailcode: [place] | | | | | | [facility] Health and | | | | | | [facility] 2 | | | | | | [place], [place] | | | | | | [address] | | | | | | [phone] | | | +--------+ + + + [...] | | | | | [place], [place] | | | | | | [address] | | | | | | [phone] | | | | | | | | +--------+ + + + + documented as of this encounter Visit Diagnoses Not on filedocumented in this encounter"
--- OUTSIDE RECORDS SUMMARY | ~2019-05-23 | XMS | Encounter Summary ---
Demographics + + + | Address | [address] | | | [place] [address] | + + + | Home Phone [...] + | Katalina Padilla | ECON | [address] | | | | | [place], [place] | | | | | [address] | | + + + + + | Ellie Vang | ECON | Unknown | | + + + + + Care Team Providers + +------+ + | Care Bowling Ball Finisher Name | Role | Phone | + +------+ + | Fadi Goodrich DO | PCP | | + +------+ + Encounter Details +--------+------+ + + + | Date | Type | Department | Care Team | Description | +--------+------+ + + + | 12/05/ | Lab | Laboratory at [facility] | | Type 2 diabetes | | 2013 | | [address] | | mellitus (HCC) | | | | [place], [place] | | | | | | [address] | | | | | | [phone] | | | +--------+------+ + + + [...] | | 2019 | Visit | | [address] | | | | | | [place], [place] | | | | | | [address] | | | | | | [phone] | | | | | | | [...] | + + + + + | [facility] | [address] | [place] [address] | | | SERVICES, SPECIAL | PARK [...]
--- OUTSIDE RECORDS SUMMARY | ~2019-05-23 | XMS | Encounter Summary ---
Demographics + + + | Address | [address] | | | [place] [address] | + + + | Home Phone [...] + | Katalina Padilla | ECON | [address] | | | | | [place], [place] | | | | | [address] | | + + + + + | Ellie Vang | ECON | Unknown | | + + + + + Care Team Providers + +------+ + | Care Rural Service Engineer Name | Role | Phone | [...] Hospital | | | | | | [facility], | [place], [place] | | | | | | Building 2 | [address] | | | | | | [place], [place] | Phone: | | | | | | [address] | [phone] | | | | | | Phone: | Fax: | | | | | | [phone] | [phone] | | | | | | Fax: | | | | | | | [phone] | | +--------+--------+ + + + + [...] mention of | CL[address] [address] [place], | | | | | obstruction | [address] | [place] | | | | | or gangrene | [address]VE | [address] | | | | | | [place], | Phone: | | | | | | [place] [address] | [phone] | | | | | | Phone: | Fax: | | | | | | [phone] | [phone] | | | | | | Fax: | | | | | | | [phone] | | +--------+--------+ + + + + [...] | | | | Mailcode: Center | [place], [place] | | | | | [facility] and | [address] | | | | | [facility], [facility] 2 | [phone] | | | | | [place], [place] | | | | | | [address] | | | | | | [phone] | | | +--------+---------+ + + + [...] colonoscopy), but a referral to her local [facility] mentioned this was probably an incisional [...] Optimally will need coordination for [facility] Medicaid & [facility] Bariatric program for wt loss. [...] material. 4. Continue to meet with her Windows Server Support Technician in the outpatient setting for diet and [...] has been instructed to f/u w/ her generator worker for a strict diet of <1000 kcal/d [...] teaching. Howie Faria MD MIS/Bariatric Fellow, Pager [address] [facility] Attending provider: Hernandez Brian MD [...] | 2019 | Visit | | [address] | | | | | | [place], [place] | | | | | | [address] | | | | | | [phone] | | | | | | | [...]
--- OUTSIDE RECORDS SUMMARY | ~2019-05-23 | XMS | Encounter Summary ---
Demographics + + + | Address | [address] | | | [place] [address] | + + + | Home Phone [...] [place], [place] | | | | | [address] | | + + + + + | Ellie Vang | ECON | Unknown | | + + + + + Care Team Providers + +------+ + | Care Superintendent Factory Name | Role | Phone | + [...] 2012 | | Center at [facility] [address] | [facility] [address] | | | | | [address] | Ave [place], [place] | | | | | Mailcode: [place] | [address] | | | | | for Health and | | | | | | [facility] 2 | | | | | | [facility] [place] | | | | | | [address] | | | | | | | [...] | | 2019 | Visit | | [address] | | | | | | [place], [place] | | | | | | [address] | | | | | | [phone] | | | | | | | | +--------+ + + + + documented as of this encounter Visit Diagnoses Not on filedocumented in this encounter"
--- OUTSIDE RECORDS SUMMARY | ~2019-05-23 | XMS | Encounter Summary ---
Demographics + + + | Address | [address] | | | [place] [address] | + + + | Home Phone [...] [place], [place] | | | | | [address] | | + + + + + | Ellie Vang | ECON | Unknown | | + + + + + Care Team Providers + +------+ + | Care Director Industrial Name | Role | Phone | + [...] | | 2019 | | Center at [facility] [address] | | Review | | | | [address] | | | | | | Mailcode: [place] | | | | | | [facility] Health and | | | | | | [facility], [facility] 2 | | | | | | [place], [place] | | | | | | [address] | | | | | | [phone] | | | +--------+ + + + [...] | | 2018 | Visit | | [address] | | | | | | [place], [place] | | | | | | [address] | | | | | | [phone] | | | | | | | | +--------+ + + + + documented as of this encounter Visit Diagnoses Not on filedocumented in this encounter"
--- OUTSIDE RECORDS SUMMARY | ~2019-05-23 | XMS | Encounter Summary ---
Demographics + + + | Address | [address] | | | [place] [address] | + + + | Home Phone [...] [place], [place] | | | | | [address] | | + + + + + | Ellie Vang | ECON | Unknown | | + + + + + Care Team Providers + +------+ + | Care Charge Authorizer Name | Role | Phone | + [...] | | 2014 | | Preventive at [facility] | [address] | (Phentermine); | | | | [address] | [place], [place] | Refill Request | | | | Mailcode: [place] | [address] | | | | | [facility] | [phone] | | | | | and [place], | | | | | | Building [address] | | | | | | [place], [place] | | | | | | [address] | | | | | | [phone] | | | +--------+--------+ + + + [...] 2018 | Visit | | [address] | | | | | | [place], [place] | | | | | | [address] | | | | | | [phone] | | | | | | | | +--------+ + + + + documented as of this encounter Visit Diagnoses Not on filedocumented in this encounter"
--- OUTSIDE RECORDS SUMMARY | ~2019-05-23 | XMS | Encounter Summary ---
Demographics + + + | Address | [address] | | | [place] [address] | + + + | Home Phone [...] + | Katalina Padilla | ECON | [address] | | | | | [place], [place] | | | | | [address] | | + + + + + | Ellie Vang | ECON | Unknown | | + + + + + Care Team Providers + +------+ + | Care Choke Setter Name | Role | Phone | [...] | 2016 | on | Center at [place] [id number] | | | | | | [address] | | | | | | Mailcode: [place] | | | | | | for Health and | | | | | | [facility], [facility] 2 | | | | | | [place], [place] | | | | | | [address] | | | | | | [phone] | | | +--------+ + + + [...] [place] | | | | | | [address] | | | | | | [phone] | | | | | | | | +--------+ + + + + documented as of this encounter Visit Diagnoses Not on filedocumented in this encounter"
--- OUTSIDE RECORDS SUMMARY | ~2019-05-23 | XMS | Encounter Summary ---
Demographics + + + | Address | [address] | | | [place] [address] | + + + | Home Phone [...] + | Katalina Padilla | ECON | [address] | | | | | [place], [place] | | | | | [address] | | + + + + + | Ellie Vang | ECON | Unknown | | + + + + + Care Team Providers + +------+ + | Care Synthetic Cloth Binding Cutter Name | Role | Phone | [...] | | | | and over, | [place], [place] | [facility] | | | | | adult (HCC) | [address] | for Health | | | | | Severe | Phone: | and Healing, | | | | | muscle | | Building 1, | | | | | deconditioni | Fax: | [address] | | | | | ng | [phone] | [place], [place] | | | | | Procedures | | [address] | | | | | PHYSICAL | | Phone: | | | | | THERAPY | | [phone] | | | | | REFERRAL | | Fax: | | | | | | | [phone] | +--------+--------+ + + + + Encounter Details +--------+ + + + + | Date | Type | Department | Care Team | Description | +--------+ + + + + | 02/02/ | Director Data Management | Digestive Health | Shereen Georges, | Morbid obesity with | | 2017 | | Center at [facility] [address] | [facility] [address] | BMI of 70 and over, | | | | [address] | Ave [facility] [place] | adult (HCC) (Primary | | | | Mailcode: Center | [address] | Dx); Severe muscle | | | | for Health and | | deconditioning | | | | Healing, Building 2 | | | | | | [place], [place] | | | | | | [address] | | | | | | | [...] | | | | | [place], [place] | | | | | | [address] | | | | | | [phone] | | | | | | | [...]
--- OUTSIDE RECORDS SUMMARY | ~2019-05-23 | XMS | Encounter Summary ---
Demographics + + + | Address | [address] | | | [place] [address] | + + + | Home Phone [...] + | Katalina Padilla | ECON | [address] | | | | | [place], [place] | | | | | [address] | | + + + + + | Ellie Vang | ECON | Unknown | | + + + + + Care Team Providers + +------+ + | Care Seafood Fisherman Name | Role | Phone | + +------+ + | aFdi Goodrich DO | PCP | | + [...] | | 2014 | | Center at [facility] [address] | [address] | (11/03 and 11/06 phone | | | | [address] | Lesly Gutiérrez [place], | calls) | | | | Mailcode: [place] | [place] [address] | | | | | for Health and | | | | | | [facility], [facility] 2 | | | | | | [place], [place] | | | | | | [address] | | | | | | [phone] | | | +--------+ + + + [...] | | | | | [place], [place] | | | | | | [address] | | | | | | [phone] | | | | | | | | +--------+ + + + + documented as of this encounter Visit Diagnoses Not on filedocumented in this encounter"
--- OUTSIDE RECORDS SUMMARY | ~2019-05-23 | XMS | Encounter Summary ---
Demographics + + + | Address | [address] | | | [place] [address] | + + + | Home Phone [...] [place], [place] | | | | | [address] | | + + + + + | Ellie Vang | ECON | Unknown | | + + + + + Care Team Providers + +------+ + | Care Molder Inflated Ball Name | Role | Phone | + [...] | | | | | | | [address] | | | | | | | [address] | | | | | | | [place], | | | | | | | [place] | | | | | | | [address] | | | | | | | Phone: | | | | | | | [phone] | | | | | | | Fax: | | | | | | | [phone] | +--------+--------+ + + + + Encounter Details +--------+---------+ + + + | Date | Type | Department | Care Team | Description | +--------+---------+ + + + | 04/14/ | Office | Digestive Health | Hernandez Brian, | Morbid obesity (HCC) | | 2013 | Visit | Center at [facility] [address] | [address] | (Primary Dx); Type | | | | [address] | [address] | 2 diabetes mellitus | | | | Mailcode: Center | [place], [place] | ([facility]); [place] | | | | for Health and | [address] | (obstructive sleep | | | | [facility] 2 | [phone] | apnea); Edema | | | | [place], [place] | | | | | | [address] | | | | | | [phone] | | | +--------+---------+ + + + [...] this year, she was tr ansferred from [place] for surgical evaluation of possible incarcerated ventral [...] with close followup by her PCP in [place] in the interim. Dr. Guillory in [place] has been following her since January, with CT scan obtained at [facility] in [place] 02/09/2013 (images in [facility]), demonstrating "recurrent hypogastric [...] to follow up with her providers at [facility] to include a visi t to our [...] r weight loss efforts. She saw a color checker today and Melida came in to discuss [...] and well perfused. 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 There is a well [...] | | | | | [place], [place] | | | | | | [address] | | | | | | [phone] | | | | | | | | +--------+ + + + + documented as of this encounter Visit Diagnoses + + | Diagnosis | + + | Morbid obesity (HCC) - Primary Morbid obesity | + + | Type 2 diabetes mellitus ([facility]) Type II or unspecified type diabetes mellitus without | | mention of complication, not stated as uncontrolled | + + | AMARA (obstructive sleep apnea) Obstructive sleep apnea (adult) (pediatric) | + + | Edema | + + documented in this encounter
--- OUTSIDE RECORDS SUMMARY | ~2019-05-23 | XMS | Clinical Summary ---
Demographics + + + | Address | [address] | | | [place] [address] | + + + | Home Phone | | + + + | Preferred Language | Unknown | + + + | Marital Status | | + + + | Hinduism Affiliation | Unknown | + + + | Race | Unknown | + + + | Ethnic Group | Unknown | + + + Author + + + | Author | [facility] | | | and Jeffana | + + + | Organization | [facility] | | | and Jeffana [...] Providers + +------+ + | Care Water Purification Chemist Name | Role | Phone | [...] 0 | | | Activ | | Mvkcuph-Faptnuypl-Qy | mouth 2 times daily. 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 for 100lb | | weight gain- DC on diuresis on 03/06/2016- she feel improvedShe | | was on Metolazone and Torsemide prior to hospitalization- both | | have better bioavailability than lasix in gut edema but she | | retained 100lbs - how ever she is currently on only Torsemide | | 100mg Q12hrs started in [place] and her weight been stable | | sinceShe has no other complaints.She is pending to see | | NephrologistEcho 02/16/2016([facility])- Normal LV systolic | | function, mildly [...] morbid obesity, she is enrolled in the [facility] bariatric program. | | She [...] tolerating well in the | | hospital-- [facility] arranging for BiPAP upon d/c home to [facility] | | areaOverview: Cannot tolerate [...] + + + + | Overview: Overview: [facility] Assessment & Plan: Patient with [...] responded well to diuresis at | | [facility] (lost 60lb, down to 410), and then reaccumulated water | | weight on Torsemide and metolazone, which should be less effected | | by gut wall edema than Lasix. She has an appt with nephrology at | | [facility] on 03/17. Weight now 200kg (440lb, down [...] Defer Metolazone to her | | outpatient Galley Worker or Cordwood Cutter- Will continue KCL | | supplementation at 60meq QID despite the spironolactone as she | | remains on the low side- Encourage daily weights at home with a | | log; she should contact her PCP, Galley Worker or Cordwood Cutter for | | a 10lb weight gain [...] | Visit | | [facility] [address] | | | | | | [address] | | | | | | [place] [address] | | | | | | [phone] | | | | | | | [...] | | | | | by ICA Belle Read Only, | | | | | | ICA Ya ([id number]), | | | | | | non linear editor Glen Alberto | | | | | | ([id number]) on 04/28/2019 | | | | | [...] 0.61 m/s | | | MV Dec Sarpy: 2.43 m/s2 MV DecT: 247.51 ms MV E Jeffrey: | | | 0.60 m/s MV E/A Ratio: 0.98 MV PHT: 71.78 ms MVA By | | | PHT: 3.06 cm2 Septal e': 0.06 m/s Septal E/e': 9.54 | | | Lateral e': 0.10 m/s Lateral E/e': 5.84 RAP: 5 mmHg RV | | | s': 0.11 m/s Accounting Machine Mechanic: JESSICA Authenticated by: Darryl | | | [facility] Report Date/Time: 02-22-2019 20:8:36 | | + + + + --------+ | Procedure Note | + --------+ | Aditya, Rad Conversion - 03/17/2019 1308 PDT Patient Name: Tiny Cristina of : | | 1975 Performing Physician: Darryl | | [facility] INDICATIONS------ | | -----Sinus Tachycardia CONCLUSIONS 1. [...] cmLVIDd: 4.70 cmLVPWd: 0.79 cmLVOT Area: 3.58 bf4BLTK Diam: 2.13 cm%FS: 39.25 | | %EF(Teich): [...] | Index (A-L): 14.72 ml/m2LAAs A2C: 10.03 up0PIPGI A-L A2C: 22.69 mlLALs A2C: 3.76 | | cmLAAs A4C: 13.41 bj4MAJGW A-L A4C: 36.80 mlLALs A4C: 4.14 cmRAAs: 11.18 | | cs4YZSIL A-L: 22.84 mlRAESV MOD: 22.10 mlRALs: 4.64 cmTAPSE: 2.04 cmAV maxPG: | | 6.55 mmHgAV meanP.52 mmHgAV Vmax: 1.27 m/Genesis Vmean: 0.88 m/Genesis VTI: 26.50 | | cmAVA Vmax: 2.49 cm2AVA (VTI): 2.39 yw7IPEP Vmax: 0.00 cm2/m2AVAI (VTI): 0.00 | | cm2/m2LVOT maxP.17 mmHgLVOT meanP.82 mmHgLVSI Dopp: 30.83 ml/m2LVSV Dopp: | | 63.52 mlLVOT Vmax: 0.89 m/sLVOT Vmean: 0.65 m/sLVOT VTI: 17.71 cmMV A Jeffrey: | | 0.61 m/sMV Dec Sarpy: 2.43 m/s2MV DecT: 247.51 msMV E Jeffrey: 0.60 m/sMV E/A Ratio: | | 0.98MV PHT: 71.78 msMVA By PHT: 3.06 nq6Bcaoza e': 0.06 m/sSeptal E/e': | | 9.54Lateral e': 0.10 m/sLateral E/e': 5.84RAP: 5 mmHgRV s': 0.11 m/s | | Accounting Machine Mechanic: DHAuthenticated by: Darryl [facility] Date/Time: 02-22-2019 20:8:36 | | IMPRESSION: 1. [...] A Jeffrey: 0.61 m/s | |MV Dec Sarpy: 2.43 m/s2 | |MV DecT: 247.51 ms | |MV E Jeffrey: 0.60 m/s | |MV E/A Ratio: 0.98 | |MV PHT: 71.78 ms | |MVA By PHT: 3.06 cm2 | |Septal e': 0.06 m/s | |Septal E/e': 9.54 | |Lateral e': 0.10 m/s | |Lateral E/e': 5.84 | |RAP: 5 mmHg | |RV s': 0.11 m/s | | | |Accounting Machine Mechanic: JESSICA | |Authenticated by: Darryl Merrill | [...] | [employer] | MODA | [id number] | 10/28/19 | [phone] | | Medica | | MEDICAID HMO | HEALTH | | 19-Pre | 1 | | id | | | MDCD | | sent | | | | | | HMO [place] | | | | | | + +--------+ +--------+ +---------+--------+ | [employer] | MODA | [id number] | | [phone] | | Medica | | MEDICAID HMO [...] mireya | | | 3 (Home) | [address] | + +--------+ +--------+ + + | Elzbieta Cristina | Person | Self | [birth year] | [address] | | | al/Fam | | 1975 | [phone] | [address] [place] | | | mireya | | | 3 ([place]) | [address] | + +--------+ +--------+ + + Advance Directives Patient has advance care planning documents on file. For more information, please contact:[facility] [place] [address]
--- OUTSIDE RECORDS SUMMARY | ~2019-05-23 | XMS | Encounter Summary ---
Demographics + + + | Address | [address] | | | [place] [address] | + + + | Home Phone [...] + | Katalina Padilla | ECON | [address] | | | | | [place], [place] | | | | | [address] | | + + + + + | Ellie Vang | ECON | Unknown | | + + + + + Care Team Providers + +------+ + | Care Repair Cameraman Name | Role | Phone | + [...] 11/06/ | Anesthesia | 6A Intra Op [facility] | Ananya Joseph, | | | 2012 | Event | [facility] | [address] | | | | | Admitting Desk | [address] | | | | | Located on the | [place], [place] | | | | | [facility] [address] | [address] | | | | | [address] | [phone] | | | | | [place], [place] | | | | | | [address] | | | +--------+ + + + + Anesthesia Record + + + + + | Procedure Name | Responsible | Anesthesia Start | Anesthesia Stop Time | | | Anesthesiologist | Time | | + + + + + | repair incarcerated | Ananya Joseph MD | 11/06/12 1019 | 11/06/12 1417 [...] | | | 0 | | reviewed, PARQ held, anesthetic plan [...] RN | Geneva Kohli RN | | Bonilla | | | [...] | | 2018 | Visit | | [address] | | | | | | [place], [place] | | | | | | [address] | | | | | | [phone] | | | | | | | [...]
--- OUTSIDE RECORDS SUMMARY | ~2019-05-23 | XMS | Encounter Summary ---
Demographics + + + | Address | [address] | | | [place] [address] | + + + | Home Phone [...] [place], [place] | | | | | [address] | | + + + + + | Ellie Vang | ECON | Unknown | | + + + + + Care Team Providers + +------+ + | Care Communication Center Coordinator Name | Role | Phone | [...] + + | 05/13/ | Emergency | [facility] Emergency | Nay Joe | | | 2019 - | | Department [address] | | | | | [address] | [address] | | | 05/14/ | | [facility] | [place], [place] | | | 2019 | | [place], [place] | [address] | | | | | [address] | [phone] | | | | | [phone] | | | +--------+ + + + [...] might be different fr om the original. [facility] Discharge Summary Green Surgery Admit Date: [...] by mouth once daily at bedtime. CALCIUM CRB&PDZ-M4-RAT08-GENIS ORAL Take 2 tablets by mouth two [...] passing gas, please go directly to the [facility] rgency department to be evaluated. Pain Medications: [...] the prescribed narcotic-opioid (e.g. oxycodone, hydrocodone, Vicodin, [place], Percoce t, Dilaudid) as needed. Opioid pain medications may cause constipation, so be sure to take a stool softener if you take an opioid pain medication. FOLLOW-UP: Follow-up with your primary care provider for pain control. Dr. Tiwari's ham doctor will contact you to try to find a date for surgery. Follow Up: Future Appointments Provider Department Dept Phone Center 06/27/2019 11:55 AM [facility] PHONE/RN CLIN 3 Preoperative [facility] at [place] [address] [phone] [facility] 06/30/2019 11:30 AM Aly Franks Cardiology in [facility] Schedule the following appointment(s) when you get home JONES TIWARI MD. Specialty: General Surgery Why: Dr. Tiwari's ham doctor will call you to schedule a surgery date. Contact information [address] [place] [address] [place] [address] Kenyatta Hylton MD. Specialty: Family [...] oriented. Grossly intact. Anisa Christopher MD PhD [facility] General Surgery ATTENDING PHYSICIAN STATEMENT I saw the patient and have repeated the pertinent portions of the history and physical exam . I agree with the findings, assessment and plan as documented by the resident. Johana Holloway MD Division of Gastrointestinal and General Surgery [facility] [address] [place] [address] Office: [phone] documented in this e ncounter Discharge Instructions [...] surgery date up as possible and the ham doctor will contact you. Elec tronically signed by [...] passing gas, please go directly to the [facility] rgency department to be evaluated. Pain Medications: [...] the prescribed narcotic-opioid (e.g. oxycodone, hydrocodone, Vicodin, [place], Percoce t, Dilaudid) as needed. Opioid pain medications may cause constipation, so be sure to take a stool softener if you take an opioid pain medication. FOLLOW-UP: Follow-up with your primary care provider for pain control. Dr. Tiwari's ham doctor will contact you to try to find [...] | | 0 | | | | CRB&AXC-E8-[id number]-GEN | mouth two times | | | [...] | | | | [place] [address], [place] | | | | | | [address] | | | | | | [phone] | | | | | | | [...] AMES | [address] | [place], [place] | | | JUSTINE DAWN OF CARE | [address] | [address] | | | TESTS | | | [...] [facility] | [address] | [place] [address] | | | SERVICES, CORE | CLARENCE [...] | | | LABORATORY | | | FINNISH | | | SERVICES, | | | [...] MDRD equation recommended by the National | [facility] | | Kidney Disease Education Program. [...] | + + + + + | [facility] | [address] | [place] [address] | | | SERVICES, CORE | CLARENCE [...] [facility] | [address] | [place] [address] | | | SERVICES, CORE | PARK [...] 5-6 weeks | | | 850 - 09212 6-7 weeks | | | 4000 - 844973 7-12 weeks | | | 89525 - 385879 12-16 weeks | | | 34642 - 058234 16-29 | | | weeks 1400 - 42857 | | | 29-41 weeks 940 - 90391 | | | This test has not been approved for use as a tumor marker in | | | males or females. | | + + + + + + + + | Performing | Address | City/State/Zipcode | Phone Number | | Organization | | | | + + + + + | [facility] | [address] | [place] [address] | | | SERVICES, CORE | PARK [...] [facility] | [address] | [place] [address] | | | SERVICES, CORE | CLARENCE [...] | | | LABORATORY | | | FINNISH | | | SERVICES, | | | [...] MDRD equation recommended by the National | [facility] | | Kidney Disease Education Program. Estimated GFR Interpretive | LABORATORY | | Information: <60 mL/min/1.73 sq m Chronic Kidney | SERVICES, [facility] | | Disease <15 mL/min/1.73 sq m [...] | + + + + + | [facility] | [address] | [place] [address] | | | LYDIA RANGEL | [address] | | | + + + + + ED INFORMATION EXCHANGE (05/13/2019 5:14 PM PDT) + + | Specimen | + + | | + + + + + | Narrative | Performed At | + + + | COLLECTIVE?NOTIFICATION?05/13/2019 17:13?DYLAN ROMERO?MRN: | COLLECTIVE | | [id number] Criteria Met Has Guidelines PDMP Security | MEDICAL | | and Safety No recent Security Events currently on file ED Care | TECH[employer]OLOG[employer] | | Guidelines from [facility] Last Updated: 12/06/18 9:53 AM | | | Care Coordination: Receiving mental health services with | | | [facility].? Please contact [facility] for mental health concerns.? | | | Sarah/Toni Centeno: [phone]? Kishan: [phone].? | | | These are guidelines and the provider should exercise clinical | | | judgment when providing care. Care History Medical/Surgical | | | 05/11/19 12:00 AM [facility] Patient is | | | currently established with [facility]. If patient is seen in | | | the ED during business hours. Please contact CHWs at [facility] | | | Clinic. Care Recommendation: [...] 12:00 AM | | | [facility] PATIENT HAS A PCP APT [...] SUDOGEST 30 MG TABLET 5 BERNARDO MARTIN, IT INFRASTRUCTURE ARCHITECT 0 | | | 2019-03-30 SUDOGEST 30 MG TABLET 30 BERNARDO MARTIN, IT INFRASTRUCTURE ARCHITECT 0 | | | 2019-03-20 ALPRAZOLAM 1 [...] (12 mo.) Facility Visits | | | [facility] 1 [facility] 1 | | | [facility] 2 Total 4 Note: Visits indicate total | | | known visits. Recent Emergency Department Visit Summary Date | | | Facility City State Type Diagnoses or Chief Complaint May 13, 2019 | | | [facility] [place] Emergency | | | [phone]. A303 May 10, [address] [facility] [place] | | [...] | | infrc w/o resid deficits Other extermination inspector (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 | | | Allergy status to penicillin December 03, 2018 [facility] | | | [facility] [place]. [place] Emergency RIGHT LEG PAIN DUE TO FALL | | | Strain of unsp musc/tend at lower leg level, right leg, init Jul | | [facility] [place] [place] [facility] Other custodial | | | (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 Upper abdominal pain, unspecified | | | Bariatric surgery status Allergy status to oth drug/meds/biol | | | subst status Noninfective gastroenteritis and colitis, | | | unspecified Obesity, unspecified Anxiety disorder, | | | unspecified watermaster (current) use of aspirin Allergy | | | status to penicillin Personal history of pulmonary embolism | | | Recent Inpatient Visit Summary No recorded inpatient visits. | | | Care Team Provider Specialty Phone Fax Service Dates Treva, | | | Rob Hard Candy Batch Mixer/Registered Nurse Hh Case Manager Mar 27, 2018 - | | | Current Bernard Hylton MD Internal Medicine: Pulmonary Disease | | | Aug 23, 2018 - Current Daptiv This patient has | | | registered at the [facility] [place] [facility] | | | Department For more information visit: | | | [email or web address] | | | [email or web address] PLEASE NOTE: 1. Any care recommendations [...] or completeness of information provided. ? 2019 [employer] | | | [employer]. - www.[employer] | | + + + + + | Procedure Note | + + | Service Account, Rtf Results Inbound - 05/13/2019 5:16 PM PDT Formatting of this | | note might be different from the original.COLLECTIVE?NOTIFICATION?05/13/2019 | | 17:13?DYLAN ROMERO? [facility] Has Guidelines PDMPSecurity and | | SafetyNo recent Security Events currently on fileED Care Guidelines from [facility] - | | [place] Updated: 12/06/18 9:53 AM Care Coordination:Receiving mental health | | services with [facility].? Please contact [facility] for mental health concerns.? | | [facility]: [phone]? Kishan: [phone].?These are guidelines | | and the provider should exercise clinical judgment when providing care.Care | | HistoryMedical/Afgemvdd95/16/19 12:00 AM [facility] Patient is currently | | established with [facility]. If patient is seen in the ED during business hours. | | Please contact CHWs at [facility].Care Recommendation:This patient has had 5 or [...] clinical judgment when providing care.08/23/18 12:00 AM [facility] | | Hospital PATIENT HAS [...] | BELBUCA 600 MCG FILM 56 JUNITO PEDOR 0 2019-01-31 PHENTERMINE 37.5 MG TABLET | [...] 0 E.D. Visit Count (12 mo.)Facility Visits [facility] | | [facility] 1 [facility] 1 [facility] 2 Total 4 Note: | | Visits indicate total known visits. Recent Emergency Department Visit SummaryDate | | Facility City State Type Diagnoses or Chief Complaint May 13, 2019 [facility] | | [facility] [place] Emergency 10,800. A303 May 10, 2019 [facility] | | [place] Emergency Nausea with vomiting, unspecified Solitary pulmonary nodule | | Anxiety disorder, unspecified Ventral hernia without obstruction or gangrene | | Unspecified abdominal pain Diarrhea, unspecified Allergy status to oth | | drug/meds/biol subst status Prsnl hx of TIA (TIA), and cereb infrc w/o resid deficits | | Other custodial (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 Allergy status to penicillin December 03, 2018 | | [facility] [place] Emergency RIGHT LEG PAIN DUE TO FALL Strain of | | unsp musc/tend at lower leg level, right leg, init Aug 22, 2018 [facility] | | [place] Emergency Other custodial (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 Upper abdominal pain, | | unspecified Bariatric surgery status Allergy status to oth drug/meds/biol subst | | status Noninfective gastroenteritis and colitis, unspecified Obesity, unspecified | | Anxiety disorder, unspecified skilled nursing (current) use of aspirin Allergy status | | to penicillin Personal history of pulmonary embolism Recent Inpatient Visit | | SummaryNo recorded inpatient visits. Care TeamProvider Specialty Phone Fax Service Dates | | Rob Tilley Hard Candy Batch Mixer/Registered Nurse Hh Case Manager Mar 27, 2018 - Current | | Bernard Hylton MD Internal Medicine: Pulmonary Disease Aug 23, 2018 - Current | | [facility]ori patient has registered at the [facility] | | Emergency Department For more information visit: | | [email or web address] PLEASE | | NOTE: 1. Any care [...] to the | | limitations of applicable [facility] Policies. 3. You should consult directly with | | the organization that provided a care guideline or other clinical history with any | | questions about additional information or accuracy or completeness of information | | provided.? 2019 [employer]. - www.[employer] | |[facility] 3 | |Benzos 4 | |Opioids 7 | |Long Acting Opioids 0 | | | | | | | |E.D. Visit Count (12 mo.) | |Facility Visits | |[facility] 1 | |[facility] 1 | |[facility] 2 | |Total 4 | |Note: Visits indicate total known visits. | | | |Recent Emergency Department Visit Summary | |Date Facility City State Type Diagnoses or Chief Complaint | |May 13, 2019 [facility] [place] Emergency | | 10,800. A303 | | | |May 10[facility] 2019 [facility] [place] [facility] | | Nausea with vomiting, unspecified | | Solitary pulmonary nodule | | Anxiety disorder, unspecified | | Ventral hernia without obstruction or gangrene | | Unspecified abdominal pain | | Diarrhea, unspecified | | Allergy status to oth drug/meds/biol subst status | | Prsnl hx of TIA (TIA), and cereb infrc w/o resid deficits | | Other custodial (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 | | Allergy status to penicillin | | | |December 03, 2018 [facility]. [place] Emergency | | RIGHT LEG PAIN DUE TO FALL | | Strain of unsp musc/tend at lower leg level, right leg, init | | | |Aug 22, 2018 [facility] [place] Emergency | | Other extermination inspector (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 | | Upper abdominal pain, unspecified | | Bariatric surgery status | | Allergy status to oth drug/meds/biol subst status | | Noninfective gastroenteritis and colitis, unspecified | | Obesity, unspecified | | Anxiety disorder, unspecified | | watermaster (current) use of aspirin | | Allergy status to penicillin | | Personal history of pulmonary embolism | | | | | | | |Recent Inpatient Visit Summary | |No recorded inpatient visits. | | | |Care Team | |Provider Specialty Phone Fax Service Dates | |Rob Tilley Hard Candy Batch Mixer/Registered Nurse Hh Case Manager Mar 27, 2018 - Current | |Bernard Hylton MD Internal Medicine: Pulmonary Disease Aug 23, 2018 - Current | | | |[facility] Portal | |This patient has registered at the [facility] [place] Emergency Departmen t | |For more information visit: [email or web address] | |PLEASE NOTE: | | 1. Any [...] information provided. | | | |? 2019 [employer]. - [email or web address] | + + + + + + + | Performing | Address | City/State/Zipcode | Phone Number | | Organization | | | | + + + + + | [facility] | [address], | [place], [place] | [phone] | | TE[employer] | [address] | [address] | | + + + + + [...]
--- OUTSIDE RECORDS SUMMARY | ~2019-05-23 | XMS | Encounter Summary ---
Demographics + + + | Address | [address] | | | [place] [address] | + + + | Home Phone [...] + | Katalina Padilla | ECON | [address] | | | | | [place], [place] | | | | | [address] | | + + + + + | Ellie Vang | ECON | Unknown | | + + + + + Care Team Providers + +------+ + | Care Vp Rheumatology Name | Role | Phone | + [...] 2014 | | Center at [facility] [address] | [facility] [address] | Review (Pre-surgery | | | | [address] | Ave [place], [place] | meal plan. To be | | | | Mailcode: Center | [address] | provided to home | | | | for Health and | | health nurse. ) | | | | [facility], [address] | | | | | | [place], [place] | | | | | | [address] | | | | | | | [...] | | | | | [place], [place] | | | | | | [address] | | | | | | [phone] | | | | | | | | +--------+ + + + + documented as of this encounter Visit Diagnoses Not on filedocumented in this encounter"
--- OUTSIDE RECORDS SUMMARY | ~2019-05-23 | XMS | Encounter Summary ---
Demographics + + + | Address | [address] | | | [place] [address] | + + + | Home Phone [...] [place], [place] | | | | | [address] | | + + + + + | Ellie Vang | ECON | Unknown | | + + + + + Care Team Providers + +------+ + | Care Vehicle Body Builder Name | Role | Phone | + [...] | | 2 diabetes | JEAN, | [place], [place] | | | | | mellitus | [place] [address] | [address] | | | | | without | Phone: | Phone: | | | | | complication | [phone] | [phone] | | | | | (HCC) | Fax: | Fax: | | | | | Procedures | [phone] | [phone] | | | | | ND EST | | | | | | [...] | 2018 | Visit | [facility] at [facility] | [address] | mellitus without | | | | [address] | Ave [place], [place] | complication, with | | | | Mailcode: CH9A | [id number] | long-term current | | | | [facility] | [phone] | use of insulin (HCC) | | | | and Healing, | | (Primary Dx); | | | | [address] | | Morbid obesity with | | | | [place], [place] | | BMI of 70 and over, | | | | [address] | | adult (HCC) | | | | [phone] | | | +--------+---------+ + + + [...] 04/14/2013 Priority: 3 Hypoventilation associated with obesity ([facility]) 06/16/2013 Priority: 4 AMARA (obstructive sleep apnea) 04/14/2013 Priority: 4 Overview Note: Cannot tolerate CPAP Severe Morbid obesity ([facility]), BMI 88 11/12/2012 Priority: 4 Overview Note: Lifetime max: 495 lbs Phentermine started Type 2 diabetes mellitus ([facility]) 04/14/2013 Priority: 5 Iron deficiency anemia due to chronic blood loss 11/11/2015 Priority: 6 Overview Note: Ferritin 18 on 10/2015 Hypoalbuminemia (no proteinuria, need to rule out synthetic, nutrition, loss) 6 Priority: 6 Hypothyroidism 08/28/2014 Priority: 8 Morbid obesity with BMI of 70 and over, adult ([facility]) 02/02/2017 Chronic diastolic heart failure (HCC) 02/02/2017 Immobility 02/02/2017 Severe muscle deconditioning 02/02/2017 Personal history of DVT (deep vein thrombosis) 02/02/2017 History of pulmonary embolism 02/02/2017 AMARA treated with BiPAP 02/02/2017 Benign essential HTN 02/02/2017 Diabetes mellitus type 2 without retinopathy ([facility]) 02/02/2017 Hyperlipidemia 02/02/2017 Ventral hernia [...] exertion) 11/06/2015 Diabetes mellitus with insulin therapy ([facility]) 12/27/2014 Abdominal pain 02/07/2014 Migraine [...] 1 tablet by mouth once daily CALCIUM [id number] ORAL Take 2 tablets by mouth two [...] jeart failure is manag ed by her framer and she was seen by the bariatric surgery group and is now back on tr [facility] for gastric bypass in the upcoming [...] is currently being managed well by her Silver Wrapper with diuretics and main tenance of her [...] management of her heart failure by her Silver Wrapper 3) Check A1c, lipids 4) Await bariatric [...] | | | | | [place], [place] | | | | | | [address] | | | | | | [phone] | | | | | | | [...] [facility] | [address] | [place], [place] | | | SERVICES, LIPID | [address] | [address] | | + + + + + [...] [facility] | | considered for monitoring termite control service representative glycemic control in patients with: | LABORATORY [...] | + + + + + | [facility] | [address] | [place] [address] | | | SERVICES, SPECIAL | [address] | | | | IMM + COAG | | | | + + + + + documented in this encounter Visit Diagnoses + + | Diagnosis | + + | Type 2 diabetes mellitus without complication, with long-term current use of insulin | | ([facility]) - Primary | + + | Morbid obesity with BMI of 70 and over, adult ([facility]) | + + documented in this encounter
--- OUTSIDE RECORDS SUMMARY | ~2019-05-23 | XMS | Encounter Summary ---
Demographics + + + | Address | [address] | | | [place] [address] | + + + | Home Phone [...] [place], [place] | | | | | [address] | | + + + + + | Ellie Vang | ECON | Unknown | | + + + + + Care Team Providers + +------+ + | Care Television Station Manager Name | Role | Phone | + +------+ + | Fadi Goodrich DO | PCP | | + +------+ + Encounter Details +--------+ + + + + | Date | Type | Department | Care Team | Description | +--------+ + + + + | 10/12/ | Telephone | [facility] | Hernandez Brian, | | | 2012 | | [facility] [address] | MD [address] | | | | | [address] | [place] | | | | | Mailcode: [place] | [place], [place] | | | | | [facility] and | [address] | | | | | [facility] | [phone] | | | | | [place], [place] | | | | | | [address] | | | | | | [phone] | | | +--------+ + + + [...] | | | | | [place] [facility] [place] | | | | | | [address] | | | | | | [phone] | | | | | | | | +--------+ + + + + documented as of this encounter Visit Diagnoses Not on filedocumented in this encounter"
--- OUTSIDE RECORDS SUMMARY | ~2019-05-23 | XMS | Encounter Summary ---
Demographics + + + | Address | [address] | | | [place] [address] | + + + | Home Phone [...] [place], [place] | | | | | [address] | | + + + + + | Ellie Vang | ECON | Unknown | | + + + + + Care Team Providers + +------+ + | Care Irrigation Engineer Name | Role | Phone | [...] + + | 11/05/ | Hospital | [facility] 14C [address] | Joseph An | | | 2016 - | Encounter | [address] | MD Birgit [address] [facility] | | | | | 14C [facility] | [address] | | | 11/20/ | | [place], [place] | [place], [place] | | | 2016 | | [address] | [address] | | | | | [phone] | [phone] | | | | | | | | | | | | Ana, | | | | | | MD Briana [address] | | | | | | [address] | | | | | | Rd [place], [place] | | | | | | [address] | | | | | | [phone] | | | | | | | | | | | | Carmelina Tucker, | | | | | | JEFFREY-Aimee [address] | | | | | | [address] | | | | | | [place], [place] | | | | | | [address] | | | | | | [phone] | | | | | | | | | | | | Charley Lacey MD | | | | | | Jose Scott MD | | | | | | [address] | | | | | | [address] | | | | | | [place], [place] | | | | | | [address] | | | | | | [phone] | | | | | | | | | | | | Mannie Larkin MD | | | | | | [address] | | | | | | [address] [place], | | | | | | [place] [address] | | | | | | [phone] | | | | | | | | | | | | Tyrone Adrian MD | | | | | | [address] | | | | | | [address] [place], | | | | | | [place] [address] | | | | | | [phone] | | | | | | | [...] did want her to follow up with char conveyor tender in [place]. She should continue working towards bariatric surgery wh ich will ultimately put less stress on her heart. -Continue torsemide 80mg BID -Increase potassium supplementation to KCl 40mg BID -Daily weights and strict 2g Na 2L fluid restricted diet -Close followup with Dr. Goodrich (appt on 11/25 at 11AM) -Needs followup with cardiology in [place] #Left lower extremity DVT #Presumed PE Asymmetric left lower extremity pain and swelling was suspicious for DVT and confirmed with duplex ultrasound. Did not pursue CTA as it was decided that it would not international exchange coordinator . Started anticoagulation bridge with heparin gtt [...] mouth once daily. , Historical Med CALCIUM [id number] ORAL Take 2 tablets by mouth two [...] Cyndi Meier Cardiology [facility]estive [facility] Failure at [facility] Cardiology Additional Instructions/Orders: Diet Diabetic (Consistent [...] Good Yosef Segovia MD PGY-1 Internal Medicine [id number] INPATIENT FACULTY PROGRESS NOTE - GM 1 [...] (HCC) 15) Candidal intertrigo Tyrone Adrian MD [facility] 14C autism motor specialist Division of Hospital Medicine Department of Medicine [address] [place] [address] [facility] DEPARTMENT: Hosp- [id number] Place of Service: Date of Service: 11/21/2015 CSN: [id number] Modifiers:GC Resident Involved: Yes Suggested CPT: 41234 Discharge Management < 30 minute documented in this encou nter Medications at Time of Discharge + + + +---------+--------+ + | Medication | Sig | Dispensed | Refills | Start | End Date | | | | | | Date | | + + + +---------+--------+ + | CALCIUM | Take 2 tablets by | | 0 | | | | [id number] | mouth two times | | | [...] (HCC) 15) Candidal intertrigo Tyrone Adrian MD [facility] 14C autism motor specialist Division of Hospital Medicine Department of Medicine [facility] [address] [place] [address] [facility] DEPARTMENT: Hosp- [id number] Place of Service: [facility] Date of Service: 11/20/2015 CSN: [id number] Modifiers:GC Resident Involved: Yes Suggested CPT: 89092 Subsequent Visit Exp Prob Foc/Mod Complexity 25 min Colleen Tello - 016 6:49 AM PDT PHYSICIAN POKER IN STUDENT PROGRESS NOTE FOR EDUCATIONAL PURPOSES ONLY [...] of ovarian cysts or menses related. Contact MILK POWDER GRINDER if TV-US i s ordered. - TV-US [...] - topiramate 200mg po bid JEFFREY Gee-S2 [facility] PA Student Feeding: <2L fluid, Diabetic diet, >2g na Analgesia: APAP, gabapentin, hydrocodone Thromboembolic prophylaxis: Heparin/warfarin Glycemic control: moderate ISS Mobility: Encourage walking and movement Discharge: Expect hospital stay another 2-3 days with PCP FU (Dr. Goodrich) on Saturday 11/25 @ 1 1 am. - Referral to [employer] Applications Developer Code status: FULL Associated attestation - Juliette Yosef Pryor - 11/20/2015 7:50 PM PDTI have read the [facility] t note by PA student Dara [...] PCP Yosef Segovia MD PGY-1 Internal Medicine [id number] Tyrone Adrian MD - 11/19/2015 11:51 AM [...] if the PO works) Tyrone Adrian MD [facility] 14C autism motor specialist Division of Hospital Medicine Department of Medicine [facility] [address] [place] [address] [facility] DEPARTMENT: Hosp- [id number] Place of Service: Date of Service: 11/19/2015 CSN: [id number] Modifiers:GC Resident Involved: Yes Suggested CPT: 02464 Subsequent Visit Exp Prob Foc/Mod Complexity 25 min olleen Diamond - 016 6:24 AM PDT PHYSICIAN POKER IN STUDENT PROGRESS NOTE FOR EDUCATIONAL PURPOSES ONLY [...] of ovarian cysts or menses related. Contact MILK POWDER GRINDER if TV-US i s ordered. - TV-US [...] - topiramate 200mg po bid JEFFREY Gee-S2 [facility] PA Student Feeding: <2L fluid, Diabetic diet, [...] can. Yosef Segovia MD PGY-1 Internal Medicine [id number] Tyrone Adrian MD - 11/18/2015 2:01 PM [...] (HCC) 15) Candidal intertrigo Tyrone Adrian MD [facility] 14C autism motor specialist Division of Hospital Medicine Department of Medicine [facility] [address] [place] [address] [facility] DEPARTMENT: Hosp- [id number] Place of Service: Date of Service: 11/18/2015 CSN: [id number] Modifiers:GC Resident Involved: Yes Suggested CPT: 03233 Subsequent Visit Exp Prob Foc/Mod Complexity 25 [...] Pt was discussed with my attending Dr Adiran who agrees with my plan. Yosef Segovia MD PGY-1 Internal Medicine [id number] signed by Yosef Segovia at 11/18/2015 11:52 [...] (HCC) 15) Candidal intertrigo Tyrone Adrian MD [facility] 14C autism motor specialist Division of Hospital Medicine Department of Medicine [facility] [place] [address] [place] [address] [facility] DEPARTMENT: Hosp- [id number] Place of Service: - Date of Service: 11/17/2015 CSN: [id number] Modifiers:GC Resident Involved: Yes Suggested CPT: 87117 Subsequent Visit Exp Prob Foc/Mod Complexity 25 min lowersColleen - 016 6:40 AM PDT PHYSICIAN POKER IN STUDENT PROGRESS NOTE FOR EDUCATIONAL PURPOSES ONLY [...] - topiramate 200mg po bid JEFFREY Gee-S2 [facility] PA Student Feeding: <2L fluid, [...] can Yosef Segovia MD PGY-1 Internal Medicine [id number] Tyrone Adrian MD - 11/16/2015 4:59 PM [...] (HCC) 15) Candidal intertrigo Tyrone Adrian MD [facility] 14C autism motor specialist Division of Hospital Medicine Department of Medicine [facility] [address] [place] [address] [facility] DEPARTMENT: Hosp- [id number] Place of Service: Date of Service: 11/16/2015 CSN: [id number] Modifiers:GC Resident Involved: Yes Suggested CPT: 32698 Subsequent Visit Exp Prob Foc/Mod Complexity 25 min olleen Diamond - 016 6:43 AM PDT PHYSICIAN POKER IN STUDENT PROGRESS NOTE FOR EDUCATIONAL PURPOSES ONLY [...] - topiramate 200mg po bid JEFFREY Gee-S2 [facility] PA Student Feeding: <2L fluid, [...] assistance of Grisel Pearl. Patient lives i [facility] which is quite a distance to travel to and from [place]. We would ideally arran ge cardiac follow [...] (HCC) 15) Candidal intertrigo Tyrone Adrian MD [facility] 14C autism motor specialist Division of Hospital Medicine Department of Medicine [facility] [address] [place] [address] [facility] DEPARTMENT: Hosp- [id number] Place of Service: [facility] [id number] Date of Service: 11/15/2015 CSN: [id number] Modifiers:GC Resident Involved: Yes Suggested CPT: 63485 Subsequent Visit Detailed/High complexity 35 min lColleen goff - 016 6:33 AM PDT PHYSICIAN POKER IN STUDENT PROGRESS NOTE FOR EDUCATIONAL PURPOSES ONLY INPATIENT PROGRESS NOTE PATIENT INFORMATION Patient Name: Elzbieta Cristina Date of : 1975 Date of Admission: 11/06/2015 PCP: Fadi Goodrich DO Room/Bed: [facility]/08/08 Attending Provider: Tyrone Adrian MD [...] last 8 days Intake 9571.5 ml Output 38650 ml Net since Admission -41152.5 ml -25.938 L = 57.0636 lbs Constitutional: [...] - topiramate 200mg po bid JEFFREY Gee-S2 [facility] PA Student Feeding: <2L fluid, Diabetic diet, >2g na Analgesia: APAP, gabapentin, hydrocodone Thromboembolic prophylaxis: Heparin/warfarin Glycemic control: moderate ISS Mobility: Encourage walking and movement Discharge: Expect hospital stay another 3-5 days with diuresis until more euvolemic and R h eart cath can be completed. Code status: FULL Associated attestation - Brown, Yosef Pryor - 11/15/2015 2:59 PM [facility] Dara and [...] can Yosef Segovia MD PGY-1 Internal Medicine [id number] Tyrone Adrian MD - 11/14/2015 4:16 PM [...] (HCC) 15) Candidal intertrigo Tyrone Adrian MD [facility] 14C autism motor specialist Division of Hospital Medicine Department of Medicine [address] [place] [address] [facility] DEPARTMENT: Hosp- [id number] Place of Service: Date of Service: 11/14/2015 CSN: [id number] Modifiers:GC Resident Involved: Yes Suggested CPT: 98755 Subsequent Visit Exp Prob Foc/Mod Complexity 25 min olleen Diamond - 016 6:42 AM PDT PHYSICIAN POKER IN STUDENT PROGRESS NOTE FOR EDUCATIONAL PURPOSES ONLY [...] - topiramate 200mg po bid JEFFREY Gee-S2 [facility] PA Student Feeding: <2L fluid, [...] outpatient Yosef Segovia MD PGY-1 Internal Medicine [id number] Tyrone Adrian MD - 11/13/2015 4:06 PM [...] (HCC) 15) Candidal intertrigo Tyrone Adrian MD [facility] 14C autism motor specialist Division of Hospital Medicine Department of Medicine [facility] [place] [address] [place] [address] [facility] DEPARTMENT: Hosp- [id number] Place of Service: [facility] Date of Service: 11/13/2015 CSN: [id number] Modifiers:GC Resident Involved: Yes Suggested CPT: 64892 Subsequent Visit Detailed/High complexity 35 min lfelixsColleen - 016 6:36 AM PDT PHYSICIAN POKER IN STUDENT PROGRESS NOTE FOR EDUCATIONAL PURPOSES ONLY [...] - topiramate 200mg po bid JEFFREY Gee-S2 [facility] PA Student Feeding: <2L fluid, [...] VTE. Yosef Segovia MD PGY-1 Internal Medicine [id number] Tyrone Adrian MD - 11/12/2015 1:59 PM [...] 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, J INVESTMENT BANKER, at this point not definitive Plan: continue [...] ongoing 12) Candidal intertrigo Tyrone Adrian MD [facility] 14C autism motor specialist Division of Hospital Medicine Department of Medicine [facility] [address] [place] [address] [facility] DEPARTMENT: Hosp- [id number] Place of Service: - Date of Service: 11/12/2015 CSN: [id number] Modifiers:GC Resident Involved: Yes Suggested CPT: 18042 Subsequent Visit Detailed/High complexity 35 min lColleen goff - 016 6:31 AM PDT PHYSICIAN POKER IN STUDENT PROGRESS NOTE FOR EDUCATIONAL PURPOSES ONLY INPATIENT PROGRESS NOTE PATIENT INFORMATION Patient Name: Elzbieta Cristina Date of : 1975 Date of Admission: 11/06/2015 PCP: Fadi Goodrich DO Room/Bed: [facility]/ Attending Provider: Mannie Larkin MD [...] - topiramate 200mg po bid JEFFREY Gee-S2 [facility] PA Student Feeding: <2L fluid, [...] disease. Yosef Segovia MD PGY-1 Internal Medicine [id number] Mannie Larkin MD - 11/11/2015 9:19 PM [...] diuresis then RHC Mannie Larkin MD Clinical Snaker Driving Horses, Internal Medicine Pager [phone] ristalColleen martines - 10/25 6:40 AM PDT PHYSICIAN POKER IN STUDENT PROGRESS NOTE FOR EDUCATIONAL PURPOSES ONLY [...] - topiramate 200mg po bid JEFFREY Gee-S2 [facility] PA Student Feeding: <2L fluid, [...] pain Yosef Segovia MD PGY-1 Internal Medicine [id number] Maria Eugenia Leiva RCP - 11/11/2015 6:39 [...] another 5-7 days Mannie Larkin MD Clinical Snaker Driving Horses, Internal Medicine Pager [phone] Yosef Fang T - 7:24 AM PDT [...] plan. Yosef Segovia MD PGY-1 Internal Medicine [id number] signed by Yosef Segovia at 11/10/2015 2:50 [...] heart cath onc e a bit drier unloader. In terms of AMARA - does not tolerate CPAP historically. Likely CPAP will be ve ry important for her going forward. Will try overnight oximetry here to assess severity. Discharge planning:Anticipate several days in house. I spent >35 min of which >50% was spent in counseling and coordination of care. Briana Perez MD [facility] Division of Hospital Medicine Grisel [...] Maker Primary Surrogate Decision Maker Katalina kim [phone] Advanced Directives Existence of Advanced Directive Reviewed: No- Has Interest (11/09/15 1022) Advanced Directives Reviewed Comments: I gave a copy of advance directives (11/09/15 1022) KRISHNA Huertas NP [facility] 14C [address] [place] [address] lfelixColleen martines - 6:41 AM PDT PHYSICIAN POKER IN STUDENT PROGRESS NOTE FOR EDUCATIONAL PURPOSES ONLY [...] of acute blood loss and anemia of rn chronic ela dz and thalassemia is less likely. [...] AM Yosef Segovia MD PGY-1 Internal Medicine [id number] Briana Perez MD - 11/08/2015 2:01 PM [...] and coordination of care. Briana Perez MD [facility] Division of Hospital Medicine ara Colleen - 11/08/2015 6:26 AM PDT PHYSICIAN POKER IN STUDENT PROGRESS NOTE FOR EDUCATIONAL PURPOSES ONLY [...] po bid (topamax, nerve pain) JEFFREY Gee-S2 [facility] PA Student Feeding: <2L fluid, [...] Hair Md, MSc Internal Medicine PGY2 Pager [phone] Kwadwo Freire - 11/07/2015 2:05 PM PDTTransthoracic [...] plan. Yosef Segovia MD PGY-1 Internal Medicine [id number] lfelixs Colleen - 016 8:43 AM PDT PHYSICIAN POKER IN STUDENT PROGRESS NOTE FOR EDUCATIONAL PURPOSES ONLY [...] perfusion. - consider US to evaluate liver (CRMJ-lml-dmjvpjwrd fatty liver dz) and look for ascites. [...] and movement Code status: [facility] Plan of Treatment +--------+ + [...] | | 2018 | Visit | | [address] | | | | | | [place], [place] | | | | | | [address] | | | | | | [phone] | | | | | | | [...] + + + | [facility] | [address] | [place], [place] | | | [place] POINT OF CARE | [address] | [address] | | | TESTS | | | [...] | + + + + + | [facility] | [address] | [place] [address] | | | SERVICES, CORE | LESLY [...] [facility] | [address] | [place] [address] | | | SERVICES, CORE | [address] [...] | + + + + + | [facility] | [address] | [place] [address] | | | SERVICES, LYDIA | LESLY [...] [facility] | [address] | [place], [place] | | | JUSTINE DAWN OF JAKY | [facility] | [address] | | | TESTS | | | [...] | 60 - 99 mg/dL | [facility] - | | | GLUCOSE, [...] [facility] | [address] | [place], [place] | | | JUSTINE DAWN OF CARE | [address] | [address] | | | TESTS | | | [...] AMES | [address] | [place], [place] | | | JUSTINE DAWN OF JAKY | [facility] | [address] | | | TESTS | | | [...] [facility] | [address] | [place], [place] | | | JUSTINE DAWN OF JAKY | [facility] | [address] | | | TESTS | | | [...] | 60 - 99 mg/dL | [facility] - | | | GLUCOSE, [...] [facility] | [address] | [place], [place] | | | JUSTINE DAWN OF CARE | [address] | [address] | | | TESTS | | | [...] [facility] | [address] | [place] [address] | | | SERVICES, CORE | LESLY [...] + + + + + | [facility] | [address] | [place] [address] | | | SERVICES, CORE | [address] | | | + + + + + MAGNESIUM, PLASMA (11/20/2015 6:00 AM PDT) + +-------+ + + + | Component | Value | Ref Range | Performed | Pathologist | | | | | At | Signature | + +-------+ + + + | MAGNESIUM,P | 2.5 | 1.8 - 2.5 mg/dL | [facility] | | | LASMA | | | [...] | + + + + + | [facility] | [address] | [place] [address] | | | SERVICES, CORE | LESLY [...] MDRD equation recommended by the | [facility] | | National Kidney Disease [...] + + + + + | [facility] | [address] | [place] [address] | | | SERVICES, CORE | LESLY [...] | 60 - 99 mg/dL | [facility] - | | | GLUCOSE, [...] [facility]ES | [address] | [place], [place] | | | JUSTINE DAWN OF CARE | [address] | [address] | | | TESTS | | | [...] [facility] | [address] | [place], [place] | | | JUSTINE DAWN OF CARE | [address] | [address] | | | TESTS | | | [...] + + + + + | [facility] | [address] | [place] [address] | | | LYDIA RANGEL | LESLY [...] [facility] | [address] | [place] [address] | | | SERVICES, CORE | [address] [...] the MDRD equation recommended by the | [facility] | | National Kidney Disease Education Program. [...] + + + + + | [facility] | [address] | [place] [address] | | | LYDIA RANGEL | LESLY [...] [facility] | [address] | [place], [place] | | | L[place]PE[place] POINT OF CARE | [address] | [address] | | | TESTS | | | [...] AMES | [address] | [place], [place] | | | JUSTINE DAWN OF CARE | [address] | [address] | | | TESTS | | | [...] [facility] | [address] | [place], [place] | | | JUSTINE DAWN OF CARE | [address] | [address] | | | TESTS | | | [...] - [facility] | [address] | [place], [place] | | | [place] POINT OF CARE | [address] | [address] | | | TESTS | | | [...] [facility]ERT[facility] | [address] | [place] [address] | | | LYDIA RANGEL | LESLY [...] [facility] | [address] | [place] [address] | | | SERVICES, LYDIA | LESLY [...] | 60 - 99 mg/dL | [facility] - | | | GLUCOSE, [...] [facility] | [address] | [place], [place] | | | JUSTINE DAWN OF JAKY | [facility] | [address] | | | TESTS | | | [...] AMES | [address] | [place], [place] | | | L[place] POINT OF CARE | [address] | [address] | | | TESTS | | | [...] | + + + + + | [facility] | [address] [facility] | [place] [address] | | | CLAIRE, CORE | LESLY [...] + + + + + | [facility] | [address] | [place] [address] | | | SERVICES, LYDIA | LESLY [...] [facility] | [address] | [place] [address] | | | SERVICES, CORE | PARK [...] MDRD equation recommended by the | [facility] | | National Kidney Disease [...] + + + + + | [facility] | [address] | [place] [address] | | | CLAIRE, LYDIA | LESLY [...] [facility] | [address] | [place], [place] | | | [place] POINT OF CARE | [address] | [address] | | | TESTS | | | [...] AMES | [address] | [place], [place] | | | JUSTINE DAWN OF JAKY | [address] | [address] | | | TESTS | | | [...] [facility] | [address] | [place], [place] | | | JUSTINE DAWN OF CARE | [address] | [address] | | | TESTS | | | [...] [facility] | [address] | [place], [place] | | | L[place] POINT OF CARE | [address] | [address] | | | TESTS | | | | + + + + + INR (11/17/2015 5:39 AM PDT) + + + + + + | Component | Value | Ref Range | Performed | Pathologist | | | | | At | Signature | + + + + + + | INR | 2.07 (H) | 0.90 - 1.20 INR | [facility] | | | | | [...] [facility] | [address] | [place] [address] | | | SERVICES, LYDIA | [address] [...] + + + + + | [facility] Intelligent Mobile Support | [address] | [place] [address] | | | SERVICES, CORE | [address] [...] [facility] | [address] | [place] [address] | | | SERVICES, CORE | LESLY [...] | + + + + + | [facility] | [address] | [place] [address] | | | SERVICES, LYDIA | LESLY [...] [facility] | [address] | [place] [address] | | | SERVICES, CORE | [address] [...] [facility] | [address] | [place] [address] | | | CLAIRE, LYDIA | LESLY [...] [facility] | [address] | [place], [place] | | | JUSTINE DAWN OF CARE | [facility] | [address] | | | TESTS | | | [...] AM[facility] | [address] | [place], [place] | | | L[place] POINT OF CARE | [address] | [address] | | | TESTS | | | [...] [facility] | [address] | [place], [place] | | | JUSTINE DAWN OF CARE | [address] | [address] | | | TESTS | | | [...] + + + + + | [facility] | [address] | [place] [address] | | | LYDIA RANGEL | LESLY [...] | 60 - 99 mg/dL | [facility] - | | | GLUCOSE, [...] [facility] | [address] | [place], [place] | | | JUSTINE DAWN OF CARE | [address] | [address] | | | TESTS | | | [...] [facility] | [address] | [place] [address] | | | SERVICES, CORE | LESLY [...] | + + + + + | [facility] | [address] | [place] [address] | | | SERVICES, CORE | LESLY [...] | + + + + + | [facility] | [address] [facility] | [place] [address] | | | SERVICES, CORE | [address] [...] + + + + + | [facility] | [address] | [place] [address] | | | CLAIRE, LYDIA | [address] [...] [facility] | [address] | [place], [place] | | | L[place]PE[place] POINT OF CARE | [address] | [address] | | | TESTS | | | [...] + + + + + | [facility] | [address] | [place] [address] | | | SERVICES, CORE | LESLY [...] | 60 - 99 mg/dL | [facility] - | | | GLUCOSE, [...] AMES | [address] | [place], [place] | | | JUSTINE DAWN OF JAKY | [address] | [address] | | | TESTS | | | [...] + + + + + | [facility] [facility] | [address] | [place] [address] | | | LYDIA RANGEL | LESLY [...] - [facility] | [address] | [place], [place] | | | JUSTINE DAWN OF CARE | [facility] | [address] | | | TESTS | | | [...] | 60 - 99 mg/dL | [facility] - | | | GLUCOSE, [...] [facility] | [address] | [place], [place] | | | L[place] POINT OF CARE | [facility] | [address] | | | TESTS | | | [...] [facility] | [address] | [place] [address] | | | SERVICES, CORE | [address] [...] [facility] | [address] | [place] [address] | | | SERVICES, CORE | [address] [...] | + + + + + | [facility] | [address] [facility] | [place] [address] | | | SERVICES, CORE | [address] | | | + + + + + MAGNESIUM, PLASMA (11/15/2015 5:49 AM PDT) + +-------+ + + + | Component | Value | Ref Range | Performed | Pathologist | | | | | At | Signature | + +-------+ + + + | MAGNESIUM,P | 2.2 | 1.8 - 2.5 mg/dL | [facility] | | | LASMA | | | [...] + + + + + | [facility] | [address] | [place] [address] | | | SERVICES, CORE | [address] [...] | + + + + + | [facility] | [address] | [place] [address] | | | SERVICES, CORE | LESLY [...] [facility] | [address] | [place], [place] | | | JUSTINE DAWN OF JAKY | [address] | [address] | | | TESTS | | | [...] [facility] | [address] | [place] [address] | | | LYDIA RANGEL | LESLY [...] | 60 - 99 mg/dL | [facility] - | | | GLUCOSE, [...] [facility] | [address] | [place], [place] | | | JUSTINE DAWN OF CARE | [address] | [address] | | | TESTS | | | [...] AMES | [address] | [place], [place] | | | [facility] | [facility] | [address] | | | TESTS | | | [...] | + + + + + | [facility] | [address] | [place] [address] | | | SERVICES, CORE | LESLY [...] [facility] | [address] | [place], [place] | | | [facility] | [address] | [address] | | | TESTS | | | [...] [facility] | [address] | [place] [address] | | | SERVICES, LYDIA | LESLY [...] | + + + + + | [facility] | [address] | [place] [address] | | | SERVICES, CORE | LESLY [...] [facility] | [address] | [place] [address] | | | LYDIA RANGEL | LESLY [...] | + + + + + | [facility] | [address] | [place] [address] | | | SERVICES, CORE | LESLY [...] [facility] | [address] | [place], [place] | | | [facility] | [address] | [address] | | | TESTS | | | [...] - [facility] | [address] | [place], [place] | | | [facility] | [address] | [address] | | | TESTS | | | [...] AMES | [address] | [place], [place] | | | [facility] | [address] | [address] | | | TESTS | | | [...] [facility] | [address] | [place], [place] | | | [facility] | [address] | [address] | | | TESTS | | | [...] | + + + + + | [facility] | [address] | [place] [address] | | | SERVICES, CORE | PARK [...] | + + + + + | [facility] | [address] [facility] | [place] [address] | | | SERVICES, CORE | PARK [...] | + + + + + | [facility] | [address] | [place] [address] | | | CLAIRE, LYDIA | LESLY [...] + + + + + | [facility] | [address] | [place] [address] | | | CLAIRE, LYDIA | LESLY [...] [facility] | [address] | [place] [address] | | | SERVICES, CORE | PARK [...] the MDRD equation recommended by the | [facility] | | National Kidney Disease Education Program. [...] + + + + + | [facility] | [address] | [place] [address] | | | LYDIA RANGEL | LESLY [...] [facility] | [address] | [place] [address] | | | SERVICES, CORE | PARK [...] the MDRD equation recommended by the | [facility] | | National Kidney Disease Education Program. [...] + + + + + | [facility] | [address] [facility] | [place] [address] | | | CLAIRE, LYDIA | LESLY [...] [facility] | [address] | [place], [place] | | | [facility] | [address] | [address] | | | TESTS | | | [...] AMES | [address] | [place], [place] | | | [facility] | [address] | [address] | | | TESTS | | | [...] [facility] | [address] | [place], [place] | | | [facility] | [address] | [address] | | | TESTS | | | [...] [facility] | [address] | [place] | | | [facility] | [facility] | [address] | | | TESTS | | | [...] | + + + + + | [facility] | [address] | [place] [address] | | | SERVICES, CORE | PARK [...] | + + + + + | [facility] | [address] | [place] [address] | | | SERVICES, CORE | PARK [...] [facility] | [address] | [place] [address] | | | LYDIA RANGEL | LESLY [...] | + + + + + | [facility] | [address] | [place] [address] | | | SERVICES, CORE | PARK [...] + + | [facility] | [address] | [place], [place] | | | [facility] | [address] | [address] | | | TESTS | | | [...] [facility] | [address] | [place] [address] | | | SERVICES, CORE | LESLY [...] [facility] | [address] | [place] [address] | | | SERVICES, CORE | PARK [...] [facility] | [address] | [place] [address] | | | SERVICES, CORE | PARK [...] [facility] | [address] | [place] [address] | | | SERVICES, LYDIA | LESLY [...] [facility] | [address] | [place], [place] | | | [facility] | [address] | [address] | | | TESTS | | | [...] | 60 - 99 mg/dL | [facility] - | | | GLUCOSE, [...] [facility] | [address] | [place], [place] | | | [facility] | [address] | [address] | | | TESTS | | | [...] | + + + + + | [facility] | [address] | [place] [address] | | | LYDIA RANGEL | LESLY [...] [facility] | [address] | [place], [place] | | | [facility] | [address] | [address] | | | TESTS | | | [...] [facility] | [address] | [place] [address] | | | SERVICES, CORE | PARK [...] + + + + + | [facility] | [address] | [place] [address] | | | SERVICES, CORE | LESLY [...] + + + + + | [facility] | [address] | [place] [address] | | | SERVICES, CORE | PARK [...] | + + + + + | [facility] | [address] | [place] [address] | | | SERVICES, CORE | PARK [...] [facility] | [address] | [place], [place] | | | [facility] | [address] | [address] | | | TESTS | | | [...] + + + + + | [facility] | [address] [facility] | [place] [address] | | | LYDIA RANGEL | LESLY [...] [facility] | [address] | [place] | | | [facility] | [address] | [address] | | | TESTS | | | [...] AMES | [address] | [place], [place] | | | [facility] | [address] | [address] | | | TESTS | | | [...] | + + + + + | [facility] | [address] | [place] [address] | | | SERVICES, [facility] | [address] | | | + [...] [facility] | [address] | [place] | | | [facility] | [address] | [address] | | | TESTS | | | [...] [facility] | [address] | [place] [address] | | | SERVICES, CORE | PARK [...] | + + + + + | [facility] | [address] | [place] [address] | | | SERVICES, CORE | [address] | | | + + + + + MAGNESIUM, PLASMA (11/10/2015 4:05 AM PDT) + +-------+ + + + | Component | Value | Ref Range | Performed | Pathologist | | | | | At | Signature | + +-------+ + + + | MAGNESIUM,P | 2.2 | 1.8 - 2.5 mg/dL | [facility] | | | LASMA | [...] + + + + + | [facility] | [address] | [place] [address] | | | SERVICES, CORE | PARK [...] | + + + + + | [facility] | [address] | [place] [address] | | | SERVICES, CORE | PARK [...] [facility] | [address] | [place] [address] | | | SERVICES, CORE | PARK [...] [facility] | [address] | [place] [address] | | | SERVICES, LYDIA | LESLY [...] | 60 - 99 mg/dL | [facility] - | | | GLUCOSE, [...] [facility] | [address] | [place], [place] | | | [facility] | [facility] | [address] | | | TESTS | | | [...] [facility] | [address] | [place], [place] | | | [facility] | [address] | [address] | | | TESTS | | | | + + + + + X-RAY PORTABLE CHEST PICC LINE CHECK (11/09/2015 3:12 PM PDT) + + + + + + | Component | Value | Ref Range | Performed | Pathologist | | | | | At | Signature | + + + + + + | XRAY | EXAM: [place] CHEST PICC LINE | | | | [...] and meds | | | Procedure location: Unit:[facility] Room: 13 Providers: PICC Nurse | [...] | pause verifies correct patient, procedure, equipment, call center support representative | | | and site/side [...] | area Cephalic vein. Catheter lot number: [id number] with a length of | | | [...] [facility] | [address] | [place], [place] | | | [facility] | [address] | [address] | | | TESTS | | | [...] + + + + + | [facility] | [address] | [place] [address] | | | LYDIA RANGEL | LESLY [...] | 60 - 99 mg/dL | [facility] - | | | GLUCOSE, [...] [facility] | [address] | [place], [place] | | | [facility] | [address] | [address] | | | TESTS | | | [...] | + + + + + | [facility] | [address] | [place] [address] | | | SERVICES, CORE | LESLY [...] + + + + + | [facility] | [address] [facility] | [place] [address] | | | SERVICES, CORE | LESLY [...] [facility] | [address] | [place] [address] | | | SERVICES, CORE | PARK [...] | + + + + + | [facility] | [address] [facility] | [place] [address] | | | SERVICES, LYDIA | LESLY [...] [facility] | [address] | [place], [place] | | | [facility] | [facility] | [address] | | | TESTS | | | [...] | 60 - 99 mg/dL | [facility] - | | | GLUCOSE, [...] [facility] | [address] | [place], [place] | | | [facility] | [address] | [address] | | | TESTS | | | [...] [facility] | [address] | [place] [address] | | | SERVICES, CORE | PARK [...] [facility] | [address] | [place] [address] | | | SERVICES, CORE | LESLY [...] | + + + + + | [facility] | [address] | [place] [address] | | | SERVICES, CORE | PARK [...] [facility] | [address] | [place], [place] | | | [facility] | [address] | [address] | | | TESTS | | | [...] [facility] | [address] | [place], [place] | | | [facility] | [address] | [address] | | | TESTS | | | [...] | 60 - 99 mg/dL | [facility] - | | | GLUCOSE, [...] + + + | [facility] | [address] | [place], [place] | | | [facility] | [address] | [address] | | | TESTS | | | [...] | + + + + + | [facility] | [address] | [place] [address] | | | SERVICES, LYDIA | LESLY [...] | + + + + + | [facility] | [address] | [place] [address] | | | CLAIRE, LYDIA | LESLY [...] | + + + + + | [facility] | [address] | [place] [address] | | | SERVICES, CORE | PARK [...] | + + + + + | [facility] | [address] | [place] [address] | | | SERVICES, CORE | LESLY [...] [facility] | [address] | [place] [address] | | | LYDIA RANGEL | LESLY [...] the MDRD equation recommended by the | [facility] | | National Kidney Disease Education Program. [...] | + + + + + | [facility] | [address] | [place] [address] | | | SERVICES, CORE | PARK [...] + + + + + | [facility] | [address] | [place] [address] | | | SERVICES, LYDIA | LESLY [...] [facility] | [address] | [place] | | | [facility] | [address] | [address] | | | TESTS | | | [...] + + + + + | [facility] | [address] | [place] [address] | | | SERVICES, CORE | LESLY [...] [facility] | [address] | [place], [place] | | | [facility] | [address] | [address] | | | TESTS | | | [...] [facility] | [address] | [place], [place] | | | [facility] | [address] | [address] | | | TESTS | | | [...] + + + + + | [facility] | [address] | [place], [place] | | | CARDIOLOGY | [address] | [address] | | + + + + + CAPILLARY BLOOD GLUCOSE (NO CHG), POC (11/07/2015 12:26 PM PDT) + +---------+ + + + | Component | Value | Ref Range | Performed | Pathologist | | | | | At | Signature | + +---------+ + + + | BLOOD | 164 (H) | 60 - 99 mg/dL | [facility] - | | | GLUCOSE, [...] [facility] | [address] | [place], [place] | | | [facility] | [address] | [address] | | | TESTS | | | [...] the MDRD equation recommended by the | [facility] | | National Kidney Disease Education Program. [...] [facility] | [address] | [place] [address] | | | SERVICES, CORE | [address] | | | + + + + + INR (11/07/2015 10:36 AM PDT) + +-------+ + + + | Component | Value | Ref Range | Performed | Pathologist | | | | | At | Signature | + +-------+ + + + | INR | 1.14 | 0.90 - 1.20 INR | [facility] | | | | | | LABORATORY [...] [facility] | [address] | [place] [address] | | | SERVICES, CORE | PARK [...] | + + + + + | [facility] | [address] | [place] [address] | | | LYDIA RANGEL | LESLY [...] [facility] | [address] | [place], [place] | | | [facility] | [address] | [address] | | | TESTS | | | [...] | + + + + + | [facility] | [address] | [place] [address] | | | SERVICES, CORE | LESLY [...] [facility] | [address] | [place] [address] | | | SERVICES, CORE | LESLY [...] [facility] | [address] | [place] [address] | | | SERVICES, CORE | PARK [...] | + + + + + | [facility] | [address] | [place] [address] | | | SERVICES, CORE | LESLY [...] [facility] | [address] | [place], [place] | | | [facility] | [address] | [address] | | | TESTS | | | [...] | + + + + + | [facility] | [address] | [place] [address] | | | SERVICES, CORE | LESLY [...] | + + + + + | [facility] | [address] | [place] [address] | | | SERVICES, LYDIA | [address] [...] [facility] | [address] | [place] [address] | | | LYDIA RANGEL | PARK [...] | + + + + + | [facility] | [address] | [place] [address] | | | CLAIRE, LYDIA | LESLY [...] ED | | | | | | jointer machine operator at 12:33 AM by | [...] | + +---------+ + + | [facility] DEPARTMENT OF | | | [...] [facility] | [address] | [place], [place] | | | [facility] | [facility] | [address] | | | TESTS | | | [...] | | SAMPLE TYPE | | | [facility] | | | [...] [facility] | [address] | [place], [place] | | | [facility] | [address] | [address] | | | TESTS | | | [...] | + + + + + | [facility] | [address] | [place] [address] | | | SERVICES, CORE | LESLY [...] DEPT OF | [address] | [place], [place] | | | CARDIOLOGY | [address] | [address] | | + + + + + [...] | + + + + + | [facility] | [address] | [place] [address] | | | SERVICES, CORE | PARK [...] + + + + + | [facility] | [address] | [place] [address] | | | SERVICES, CORE | [address]ES[address] [...] | + + + + + | [facility] | [address] | [place] [address] | | | SERVICES, CORE | PARK [...] [facility] | [address] | [place] [address] | | | SERVICES, CORE | [address] | | | + + + + + ED INFORMATION EXCHANGE (11/06/2015 1:26 PM PDT) + + + + + + | Component | Value | Ref Range | Performed | Pathologist | | | | | At | Signature | + + + + + + | [facility] | [id number] | | [facility] | | | | [id number] | | MEDICAL | | | | [...] | ---- 11/06/2015 | | | 13:25 [facility] Emergency | | | [address]. Referral; Cellulitis 09/28/2015 15:39 [facility] | | | Hospital Emergency -Migraine, [...] | | | | | | -Other emt intermediate (current) | | | drug therapy | | | -Allergy status | | | to penicillin ED VISIT COUNT (1 YR.) Visits Location | | | ------ --------- 1 [facility] | | | [place] 9 [facility] 10 | | | Total Note: Visits indicate total known visits. | | | | | | --- | | + + + + + + + + | Performing | Address | City/State/Zipcode | Phone Number | | Organization | | | | + + + + + | [facility] | [address], | [place], [place] | [phone] | | [employer] | [address] | [address] | | + + + + + [...] | | | oral, ONCE, 1 dose, [facility] 11/08/15 | | PM PDT [...] | | | | ONCE, 1 dose, [place] 11/18/15 at 1745 | | PM PDT [...] | | | | ONCE, 1 dose, [facility] 11/13/15 at 0845 | | AM [...] | | | | ONCE, [address], [facility] 11/16/15 at 1730 | | PM PDT [...]
--- OUTSIDE RECORDS SUMMARY | ~2019-05-23 | XMS | Encounter Summary ---
Demographics + + + | Address | [address] | | | [place] [address] | + + + | Home Phone [...] + | Katalina Padilla | ECON | [address] | | | | | [place], [place] | | | | | [address] | | + + + + + | Ellie Vang | ECON | Unknown | | + + + + + Care Team Providers + +------+ + | Care Mail Censor Name | Role | Phone | + [...] | | | [address] | [place], [place] | | | | | [address] [facility] | [address] | | | | | Rd Mailcode: UHN83 | [phone] | | | | | Francesco Peres | | | | | | [address] [place], [place] | | | | | | [address] | | | | | | [phone] | | | +--------+ + + + [...] | | 2018 | Visit | | [address] | | | | | | [place], [place] | | | | | | [address] | | | | | | [phone] | | | | | | | | +--------+ + + + + documented as of this encounter Visit Diagnoses Not on filedocumented in this encounter"
--- OUTSIDE RECORDS SUMMARY | ~2019-05-23 | XMS | Encounter Summary ---
Demographics + + + | Address | [address] | | | [place] [address] | + + + | Home Phone [...] + | Katalina Padilla | ECON | [address] | | | | | [place], [place] | | | | | [address] | | + + + + + | Ellie Vang | ECON | Unknown | | + + + + + Care Team Providers + +------+ + | Care Alignment Specialist Name | Role | Phone | [...] Randell | | | | | | [address] | [address] | | | | | | [address] | Ave | | | | | | [address] | [place], [place] | | | | | | [place], [place] | [address] | | | | | | [address] | Phone: | | | | | | Phone: | [phone] | | | | | | [phone] | Fax: | | | | | | Fax: | [phone] | | | | | | [phone] | | +--------+--------+ + + + + Encounter Details +--------+---------+ + + + | Date | Type | Department | Care Team | Description | +--------+---------+ + + + | 08/29/ | Office | Cardiology | Randell Franks, | HTN (hypertension) | | 2013 | Visit | Preventive at [facility] | MD [address] | (Primary Dx); 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
--- OUTSIDE RECORDS SUMMARY | ~2019-05-23 | XMS | Encounter Summary ---
Demographics + + + | Address | [address] | | | [place] [address] | + + + | Home Phone [...] [place], [place] | | | | | [address] | | + + + + + | Ellie Vang | ECON | Unknown | | + + + + + Care Team Providers + +------+ + | Care Poultry Processing Supervisor Name | Role | Phone | [...] | | | [address] | [place], [place] | | | | | Mailcode: [place] | [address] | | | | | [facility] | | | | | | [facility] [address] | | | | | | [place], [place] | | | | | | [address] | | | | | | | [...] | | | | | [place], [place] | | | | | | [address] | | | | | | [phone] | | | | | | | | +--------+ + + + + documented as of this encounter Visit Diagnoses Not on filedocumented in this encounter"
--- OUTSIDE RECORDS SUMMARY | ~2019-05-23 | XMS | Encounter Summary ---
Demographics + + + | Address | [address] | | | [place] [address] | + + + | Home Phone [...] [place], [place] | | | | | [address] | | + + + + + | Ellie Vang | ECON | Unknown | | + + + + + Care Team Providers + +------+ + | Care Dryer Operator Name | Role | Phone | [...] | | | | | | [place] [address] | | | +--------+ + + + [...] | | 2019 | Visit | | [address] | | | | | | [place] [facility] [place] | | | | | | [address] | | | | | | [phone] | | | | | | | | +--------+ + + + + documented as of this encounter Visit Diagnoses Not on filedocumented in this encounter"
--- OUTSIDE RECORDS SUMMARY | ~2019-05-23 | XMS | Encounter Summary ---
Demographics + + + | Address | [address] | | | [place] [address] | + + + | Home Phone [...] [place], [place] | | | | | [address] | | + + + + + | Ellie Vang | ECON | Unknown | | + + + + + Care Team Providers + +------+ + | Care Erco Machine Operator Name | Role | Phone [...] | | | | | essential | [address] | [address] | | | | | hypertension | [address], | Ave | | | | | Type II or | [address] | [place], [place] | | | | | unspecified | [place], [place] | [address] | | | | | type | [address] | Phone: | | | | | diabetes | Phone: | [phone] | | | | | mellitus | [phone] | Fax: | | | | | without | Fax: | [phone] | | | | | mention of | [phone] | | | | | | complication [...] | 2013 | Visit | Preventive at [facility] | [address] | mellitus (HCC) | | | | [address] | Ave [place], [place] | (Primary Dx) | | | | Mailcode: CH9A | [address] | | | | | [facility] | [phone] | | | | | and [address], | | | | | | [address] | | | | | | [place], [place] | | | | | | [address] | | | | | | [phone] | | | +--------+---------+ + + + [...] Wi ll discuss with Dr. 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
--- OUTSIDE RECORDS SUMMARY | ~2019-05-23 | XMS | Encounter Summary ---
Demographics + + + | Address | [address] | | | [place] [address] | + + + | Home Phone [...] [place], [place] | | | | | [address] | | + + + + + | Ellie Vang | ECON | Unknown | | + + + + + Care Team Providers + +------+ + | Care Hand Profiler Name | Role | Phone | + [...] | 01/01/ | Emergency | [facility] Emergency | Fide Hester | | | 2017 - | | Department [address] | MD Raza [address] | | | | | [address] | [address] | | | 01/02/ | | [facility] | [place], [place] | | | 2017 | | [place], [place] | [address] | | | | | [address] | [phone] | | | | | [phone] | | | | | | | Jaime Yee, | | | | | | ANP [address] | | | | | | [address] | | | | | | [place], [place] | | | | | | [address] | | | | | | [phone] | | | | | | | | | | | | Sheree Aguiar MD | | | | | | [address] | | | | | | [place], [place] | | | | | | [address] | | | | | | | | | | | | Felix Cardoza, | | | | | | LICENSE AND PERMIT SPECIALIST [address] | | | | | | [address] | | | | | | [place], [place] | | | | | | [address] | | | | | | [phone] | | | | | | | [...] discharge. Thank you for choosing [facility] for your healthcare needs. Abdominal Hernia Repair: [...] living will and a durable power of trademark attorney for health care. Bring a copy [...] apply lotions, perfume s, deodorants, or nail danish. Do not shave the surgical site yourself. [...] driving, and getting back to your nor [facility] routine. When should you call your [...] Repair: Before Your Surgery", log into your [employer] a ccount at [email or web address]. You can enter U288 in the "[employer] Library" search box . Not on [employer]? Review the Variablet section of your After Visit Summary for directions on anjel aguero to sign up. Current as of: March 04, 2016 Content Version: 11.2 3181-9359 [employer]. Care instructions adapted under license by [facility]. If you have questions about a medical condition or this instr uction, always ask your healthcare professional. [employer] disclaims any curly anty or liability for [...] changes in the way you eat. An process improvement specialist to help you be more active [...] Prepare for Weight-Loss Surgery", log into your eVariant account at [email or web address]. You can enter C413 in the "[employer] Library" s earch box. Not on [employer]ariant? Review the [employer]ariant section of your After Visit Summary for directions on anjel aguero to sign up. Current as of: May 08, 2016 Content Version: 11.2 5727-0325 [employer]. Care instructions adapted under license by [facility]. If you have questions about a medical condition or this instr uction, always ask your healthcare professional. [employer] disclaims any curly anty or liability for [...] | | 0 | | | | [id number]&[id number]-G2-[id number]-GEN | mouth two times | | | [...] Ball MD - 01/02/2017 7:49 AM PDT [facility] DEPARTMENT OF SURGERY EMERGENCY GENERAL SURGERY Division [...] wall hernias, laci hobbs was flown from [place] with abdominal pain from a recurrent, reducible [...] uss with Dr. Moore. Mary Ball MD [id number] [facility] [facility] [employer] A [address] [place] [facility] [place] [address] documented in this en counter Plan of [...] | | 2018 | Visit | | [address] | | | | | | [place], [place] | | | | | | [address] | | | | | | [phone] | | | | | | | [...] [facility] | [address] | [place], [place] | | | [place] POINT OF CARE | [address] | [address] | | | TESTS | | | [...] the MDRD equation recommended by the | [facility] | | National Kidney Disease Education Program. [...] [facility] | [address] | [place] [address] | | | LYDIA RANGEL | [address]ENCE [...] [facility] | [address] | [place], [place] | | | [place] POINT OF CARE | [facility] | [address] | | | TESTS | | | [...] | + + + + + | [facility] | [address] | [place] [address] | | | SERVICES, CORE | PARK [...] | + + + + + | [facility] | [address] | [place] [address] | | | SERVICES, CORE | CLARENCE [...] | + + + + + | [employer] [facility] - | [address] | [place] [address] | | | [place] | | | | + + + [...] [facility] | [address] | [place] [address] | | | SERVICES, CORE | CLARENCE [...] + + + | [facility] | [address] | [place], [place] | | | [place] POINT OF CARE | [address] | [address] | | | TESTS | | | [...] [facility] | [address] | [place] [address] | | | SERVICES, | [address] [...] | + + + + + | [facility] | [address] | [place] [address] | | | SERVICES, | [address] [...] | + + + + + | [facility] | [address] | [place] [address] | | | SERVICES, CORE | PARK [...] valves (2.5 - 3.5) INR APTT | LYDIA RANGEL | | Therapeutic Range: (75 - 120) sec | | | Heparin levels of 0.35 - 0.7 U/mL | | + + + + + + + + | Performing | Address | City/State/Zipcode | Phone Number | | Organization | | | | + + + + + | [facility] | [address] | [place] [address] | | | SERVICES, CORE | PARK [...] | + + + + + | [facility] | [address] | [place] [address] | | | LYDIA RANGEL | [address] | | | + + + + + ED INFORMATION EXCHANGE (01/01/2017 8:22 AM PDT) + + + + + + | Component | Value | Ref Range | Performed | Pathologist | | | | | At | Signature | + + + + + + | [facility] | [id number] | | [facility] | | | | [id number] | | MEDICAL | | | | [...] ---- | | | RADHA GOODRICH at [facility] | | | [facility] Unknown Primary Care | | | Unknown - Current Radha Goodrich DO | | | [phone] Primary Care | | | Unknown - Current | | + + + + + + + + | Performing | Address | City/State/Zipcode | Phone Number | | Organization | | | | + + + + + | [facility] | [address], | [place], [place] | [phone] | | [employer] | [address] | [address] | | + + + + + [...] | | | HOURS, First dose on Jasmyne 6/8/17 | | AM PDT | | | [...] | | | 01/01/17 at 2301, Until 01/02/17 | | | at 1734, 2nd line [...] mL, intravenous, NEEDED, | | | Starting Jasmyne 01/01/17 at 1751, | | | Until [...] | First dose on Jasmyne 01/01/17 at 2100, | | | | [...] | | | | | | | [facility] 01/01/17 at 2200, Until | | | | | | | Discontinued | | | | | | + +-------+ + +---+---------+ + +---+ | | | + +---+ | insulin lispro (HUMALOG) | | | injection subcutaneous, FOUR | | | TIMES DAILY, First dose on [facility] | | | 01/01/17 at 2200, Until | | | Discontinued | | + +---+ | | | + +---+ + +-------+ +--------+---+---+ | magnesium oxide (MAG-OX) tablet | Given | 01/03/20 | 400 mg | | | | 400 mg 400 mg, oral, DAILY, | | 17 8:51 | | | | | First dose on [facility] 01/01/17 at 1945, | | AM [...] | | Jasmyne 01/01/17 at 2301, Until Thu | | | 01/02/17 at 1734, 1st [...] | | | | ONCE, 1 dose, [facility] 01/01/17 at 0945 | | AM PDT | | | | + +---------+ + +---+---+ +---+---+ | | | +---+---+ + +-------+ +-------+---+---+ | thyroid tablet 30 mg 30 mg, | Given | 01/03/20 | 30 mg | | | | oral, DAILY, First dose on Jasmyne | | 17 8:50 | | | [...] | | | | First dose on [facility] 01/01/17 at 2100, | | AM PDT [...]
--- OUTSIDE RECORDS SUMMARY | ~2019-05-23 | XMS | Encounter Summary ---
Demographics + + + | Address | [address] | | | [place] [address] | + + + | Home Phone [...] [place], [place] | | | | | [address] | | + + + + + | Ellie Vang | ECON | Unknown | | + + + + + Care Team Providers + +------+ + | Care Behavioral Health Associate Name | Role | Phone | [...] | | | | | | Ryan rGace | | | | | | | Brock Mailcode: | | | | | | | [id number] | | | | | | | [facility] | | | | | | | [address] | | | | | | | [place], [place] | | | | | | | [address] | | | | | | | Phone: | | | | | | | [phone] | | | | | | | Fax: | | | | | | | [phone] | +--------+--------+ + + + + Encounter [...] | | | [address] | [facility] [place] | Dx) | | | | Mailcode: L223A | [address] | | | | | [facility] | [phone] | | | | | [address] [facility] [place] | | | | | | [address] | | | | | | [phone] | | | +--------+---------+ + + + [...] MD,MPH - 11/05/2015 2:09 PM PDT [facility] Department of Surgery EGS/TRAUMA Surgery [...] 500 mg by mouth once daily. CALCIUM CRB&OQH-J2-KSZ92-GENIS ORAL Take 1 tablet by mouth two [...] were answered. Christian Rocha MD MPH FACS [facility] space control agent Trauma, Critical Care & Acute Care Surgery [facility] [phone] documented in thi s encounter Plan of [...] | | 2018 | Visit | | [address] | | | | | | [place], [place] | | | | | | [address] | | | | | | [phone] | | | | | | | | +--------+ + + + + documented as of this encounter Visit Diagnoses + + | Diagnosis | + + | Ventral hernia without obstruction or gangrene - Primary Ventral hernia, unspecified, | | without mention of obstruction or gangrene | + + documented in this encounter"
--- OUTSIDE RECORDS SUMMARY | ~2019-05-23 | XMS | Encounter Summary ---
Demographics + + + | Address | [address] | | | [place] [address] | + + + | Home Phone [...] + | Katalina Padilla | ECON | [address] | | | | | [place], [place] | | | | | [address] | | + + + + + | Ellie Vang | ECON | Unknown | | + + + + + Care Team Providers + +------+ + | Care Residency Director Name | Role | Phone | [...] + + | 02/07/ | Hospital | [address] | Milana Landaverde, | | | 2014 - | Encounter | [address] | [address] | | | | | [place], [place] | [address] | | | 02/08/ | | [address] | [place], [place] | | | 2013 | | [phone] | [address] | | | | | | [phone] | | | | | | | [...] the resident s note. PRADIP STARR MD [facility] [address] [facility] [place] [address] orrMaryam hill MD - 1:05 PM PDT [facility] DEPARTMENT OF SURGERY EMERGENCY GENERAL SURGERY Division of Trauma and Critical Care INPATIENT PROVIDER DISCHARGE SUMMARY Note Date: 02/08/2014 Admission Date: 02/07/2014 DYLAN ROMERO, Discharge Date: 08 Feb 2014 PCP: Fadi Goodrich DO Attending Physician: Milana Landaverde MD Author: MARYAM RHODSE MD HPI: Dylan Romero is a 38 y.o. Female with morbid obesity, bipolar disorder and Type 2 DM who presented to the [facility] ED ([place], [place]) on 02/06/14, with a week hi story of RUQ abdominal pain that radiates to her back. There, she was found to have leukocyt osis and multiple tiny, mobile stones, + sonographic Peterson's sign on abdominal ultrasound, concerning for acute cholecystitis. She was givenIV antibiotics (cipro, flagyl) and pain med s, then transferred to [facility] by [facility] for further care. Ms. Romero endorsed [...] with Trauma Emergency General Surgery at [facility] In 4 weeks. (follow up in 2-4 weeks ) Contact information [address] [facility] Mailcode: [id number] Lionelyiarmen [address] [place] [address] Thank you for the [...] the resident s note. PRADIP STARR MD [facility] [address] [facility] [place] [address] orrMaryam hill MD - 5:17 AM PDT [facility] DEPARTMENT OF SURGERY EMERGENCY GENERAL SURGERY Division [...] tolerated MARYAM RHODES MD PGY-1, General Surgery 29993 pager number [facility] [place] A [address] [facility] [address] documented in this encoun ter Plan of [...] | | 2018 | Visit | | [address] | | | | | | [place], [place] | | | | | | [address] | | | | | | [phone] | | | | | | | [...] [facility] | [address] | [place], [place] | | | [place] OF CARE | [address] | [address] | | | TESTS | | | [...] [facility] | [address] | [place], [place] | | | [place] POINT OF CARE | [address] | [address] | | | TESTS | | | [...] [facility] | [address] | [place], [place] | | | [place] OF [facility] | [address] | [address] | | | TESTS | | | [...] [facility] | [address] | [place], [place] | | | [place] OF CARE | [address] | [address] | | | TESTS | | | [...] [facility] | [address] | [place] [address] | | | SERVICES, | [address] [...] | + + + + + | [facility] | [address] | [place] [address] | | | SERVICES, | [address] | | | | TRANSFUSION MEDICINE | | | | + + + + + CAPILLARY BLOOD GLUCOSE (NO CHG) POC (02/07/2014 9:22 AM PDT) + +---------+ [...] [facility] | [address] | [place], [place] | | | [place] POINT OF CARE | [address] | [address] | | | TESTS | | | [...] + + + + + | [facility] | [address] | [place] [address] | | | SERVICES, CORE | [address] | | | + + + + + LIPASE, PLASMA (02/07/2014 6:32 AM PDT) + +--------+ + + + | Component | Value | Ref Range | Performed | Pathologist | | | | | At | Signature | + +--------+ + + + | LIPASE | 80 (L) | 152 - 353 U/L | [facility] | | | (LAB) | | | [...] [facility] | [address] | [place] [address] | | | SERVICES, CORE | [address]ARK [...] [facility] | [address] | [place] [address] | | | CLAIRE, LYDIA | [address] [...] | + + + + + | [facility] | [address] | [place] [address] | | | SERVICES, CORE | [address]ENCE [...] | + + + + + | [facility] | [address] | [place] [address] | | | SERVICES, CORE | PARK [...] [facility] | [address] | [place], [place] | | | [place] OF CARE | [address] | [address] | | | TESTS | | | [...] pattern. | | | | | | [employer] | | | | | | sections [...] | + + + + + | [facility] | [address] | [place] [address] | | | PATHOLOGY | [address] [...] | | | | | | | 14 at 2001, severe pain | | | [...] + +---------+ +--------+---+---+ | HYDROmorphone (DILAUDID) | | 02/08/20 | 0.5 mg | | [...]
--- OUTSIDE RECORDS SUMMARY | ~2019-05-23 | XMS | Encounter Summary ---
Demographics + + + | Address | [address] | | | [place] [address] | + + + | Home Phone [...] [place], [place] | | | | | [address] | | + + + + + | Ellie Vang | ECON | Unknown | | + + + + + Care Team Providers + +------+ + | Care Personal Chef Name | Role | Phone | + [...] + + | 03/01/ | Hospital | [facility] [address] | Ion Castanon, | | | 2018 - | Encounter | [address] | [address] | | | | | [place], [place] | [place], [place] | | | 03/03/ | | [address] | [address] | | | 2017 | | [phone] | [phone] | | | | | | | [...] Gavin ACNP - 03/03/2018 9:49 AM PDT [facility] RED SURGERY INPATIENT DISCHARGE SUMMARY Author: KAIN [...] to a bariatric full liquid diets. Our [facility] dietitian was consulted and they discussed [...] at minimum. 5. Follow with PCP for Cooling Room Attendant within 1 - 2 weeks of discharge [...] mg by mouth two times daily. CALCIUM [id number]-GENIS ORAL Take 2 tablets by mouth two [...] or Kefir, [place] Yogurt, and Chioban i Swazi Yogurt are common brands with beneficial probiotics. [...] are available over the counter at most [facility] [employer] stores. Nausea/Vomiting/Difficulty Swallowing Nausea/Vomiting/Difficulty swallowing: Could be [...] care provider. At your primary care provi pihlip follow up visit, they will use your [...] hours per your instructions. Some medications, like Merlin, have Tylenol in it. Make sure you [...] hours by calling the surgery office at [phone]. - After hours, weekends and holidays, you may call the hospital tuft machine operator at [phone] an d have the detonator assembler Red Surgery Team paged. OTHER DISCHARGE ORDERS [...] at minimum. 5. Follow with PCP for Cooling Room Attendant within 1 - 2 weeks of discharge [...] Department Dept Phone Center 03/10/2018 1:30 PM [facility] at [facility] 6th Floor [phone] FO OD AND NUT 03/10/2018 3:05 PM [facility] at [facility] 6th Floor [phone] [facility] 04/01/2018 10:30 AM [facility] at [facility] 6th Floor [phone] FO OD AND NUT 04/01/2018 11:00 AM Ion [facility]anon [facility] at [facility] 6th Floor [phone] [facility] 05/27/2018 2:30 PM [facility] at [facility] 6th Floor [phone] FO OD AND NUT 05/27/2018 3:05 PM [facility] at [facility] 6th Floor [phone] [facility] 05/27/2018 4:30 PM [facility] at [facility] 15th Floor [phone] Comprehensiv 06/04/2018 10:35 AM [facility] Preventive at [facility] [phone] Cardiology Discharging Physician: KAIN Agee Attending Physician: Ion Castanon MD [facility] Surgery Pager# [phone] 9:50 AM 03/03/2018 documented in this enco [...] | | 0 | | | | [id number]-GEN | mouth two times | | | [...] date of discharge 03/03/18 PARTHA Calixto MS3 [facility] Demarcus Menon MD - [...] for care ride home (pt lives in [place]) Demarcus Alas M.D. General Surgery Resident PGY-1 Pager: [phone] Ion Ferrari MD - 10:00 AM PDTI [...] | | 2019 | Visit | | [address] | | | | | | [place], [place] | | | | | | [address] | | | | | | [phone] | | | | | | | [...] | PDT | over, adult ([facility]) | results section. | + +--------+ + + + | CAPILLARY BLOOD | Routin | 03/03/2018 | Morbid obesity | Results for this | | GLUCOSE (NO CHG), | e | 7:54 AM | with BMI of 70 and | procedure are in the | | POC | | PDT | over, adult ([facility]) | results section. | + +--------+ + + + | CAPILLARY BLOOD | Routin | 03/03/2018 | Morbid obesity | Results for this | | GLUCOSE (NO CHG), | e | 6:28 AM | with BMI of 70 and | procedure are in the | | POC | | PDT | over, adult ([facility]) | results section. | + +--------+ + + + | CAPILLARY BLOOD | Routin | 03/02/2018 | Morbid obesity | Results for this | | GLUCOSE (NO CHG), | e | 9:17 PM | with BMI of 70 and | procedure are in the | | POC | | PDT | over, adult ([facility]) | results section. | + +--------+ + + + | CAPILLARY BLOOD | Routin | 03/02/2018 | Morbid obesity | Results for this | | GLUCOSE (NO CHG), | e | 6:50 PM | with BMI of 70 and | procedure are in the | | POC | | PDT | over, adult ([facility]) | results section. | + +--------+ + + + | CAPILLARY BLOOD | Routin | 03/02/2018 | Morbid obesity | Results for this | | GLUCOSE (NO CHG), | e | 3:46 PM | with BMI of 70 and | procedure are in the | | POC | | PDT | over, adult ([facility]) | results section. | + +--------+ + + + | CAPILLARY BLOOD | Routin | 03/02/2018 | Morbid obesity | Results for this | | GLUCOSE (NO CHG), | e | 2:36 PM | with BMI of 70 and | procedure are in the | | POC | | PDT | over, adult ([facility]) | results section. | + +--------+ + + + | CAPILLARY BLOOD | Routin | 03/02/2018 | Morbid obesity | Results for this | | GLUCOSE (NO CHG), | e | 1:33 PM | with BMI of 70 and | procedure are in the | | POC | | PDT | over, adult ([facility]) | results section. | + +--------+ + + + | CAPILLARY BLOOD | Routin | 03/02/2018 | Morbid obesity | Results for this | | GLUCOSE (NO CHG), | e | 11:36 AM | with BMI of 70 and | procedure are in the | | POC | | PDT | over, adult ([facility]) | results section. | + +--------+ + + + | CAPILLARY BLOOD | Routin | 03/02/2018 | Morbid obesity | Results for this | | GLUCOSE (NO CHG), | e | 10:32 AM | with BMI of 70 and | procedure are in the | | POC | | PDT | over, adult ([facility]) | results section. | + +--------+ + + + | CAPILLARY BLOOD | Routin | 03/02/2018 | Morbid obesity | Results for this | | GLUCOSE (NO CHG), | e | 9:23 AM | with BMI of 70 and | procedure are in the | | POC | | PDT | over, adult ([facility]) | results section. | + +--------+ + + + | CAPILLARY BLOOD | Routin | 03/02/2018 | Morbid obesity | Results for this | | GLUCOSE (NO CHG), | e | 8:36 AM | with BMI of 70 and | procedure are in the | | POC | | PDT | over, adult ([facility]) | results section. | + +--------+ + + + | CAPILLARY BLOOD | Routin | 03/02/2018 | Morbid obesity | Results for this | | GLUCOSE (NO CHG), | e | 7:35 AM | with BMI of 70 and | procedure are in the | | POC | | PDT | over, adult ([facility]) | results section. | + +--------+ + + + | CAPILLARY BLOOD | Routin | 03/02/2018 | Morbid obesity | Results for this | | GLUCOSE (NO CHG), | e | 6:33 AM | with BMI of 70 and | procedure are in the | | POC | | PDT | over, adult ([facility]) | results section. | + +--------+ + + + | CAPILLARY BLOOD | Routin | 03/02/2018 | Morbid obesity | Results for this | | GLUCOSE (NO CHG), | e | 5:28 AM | with BMI of 70 and | procedure are in the | | POC | | PDT | over, adult ([facility]) | results section. | + +--------+ + + + | CAPILLARY BLOOD | Routin | 03/02/2018 | Morbid obesity | Results for this | | GLUCOSE (NO CHG), | e | 4:36 AM | with BMI of 70 and | procedure are in the | | POC | | PDT | over, adult ([facility]) | results section. | + +--------+ + + + | CAPILLARY BLOOD | Routin | 03/02/2018 | Morbid obesity | Results for this | | GLUCOSE (NO CHG), | e | 2:46 AM | with BMI of 70 and | procedure are in the | | POC | | PDT | over, adult ([facility]) | results section. | + +--------+ + + + | CAPILLARY BLOOD | Routin | 03/02/2018 | Morbid obesity | Results for this | | GLUCOSE (NO CHG), | e | 12:32 AM | with BMI of 70 and | procedure are in the | | POC | | PDT | over, adult ([facility]) | results section. | + +--------+ + + + | CAPILLARY BLOOD | Routin | 03/01/2018 | Morbid obesity | Results for this | | GLUCOSE (NO CHG), | e | 10:31 PM | with BMI of 70 and | procedure are in the | | POC | | PDT | over, adult ([facility]) | results section. | + +--------+ + + + | CAPILLARY BLOOD | Routin | 03/01/2018 | Morbid obesity | Results for this | | GLUCOSE (NO CHG), | e | 8:21 PM | with BMI of 70 and | procedure are in the | | POC | | PDT | over, adult ([facility]) | results section. | + [...] | PDT | over, adult ([facility]) | results section. | + +--------+ + + + | CAPILLARY BLOOD | Routin | 03/01/2018 | Morbid obesity | Results for this | | GLUCOSE (NO CHG), | e | 3:31 PM | with BMI of 70 and | procedure are in the | | POC | | PDT | over, adult ([facility]) | results section. | + +--------+ + + + | CAPILLARY BLOOD | Routin | 03/01/2018 | Morbid obesity | Results for this | | GLUCOSE (NO CHG), | e | 3:29 PM | with BMI of 70 and | procedure are in the | | POC | | PDT | over, adult ([facility]) | results section. | + +--------+ + + + | CAPILLARY BLOOD | Routin | 03/01/2018 | Morbid obesity | Results for this | | GLUCOSE (NO CHG), | e | 2:30 PM | with BMI of 70 and | procedure are in the | | POC | | PDT | over, adult ([facility]) | results section. | + +--------+ + + + | CAPILLARY BLOOD | Routin | 03/01/2018 | Morbid obesity | Results for this | | GLUCOSE (NO CHG), | e | 1:35 PM | with BMI of 70 and | procedure are in the | | POC | | PDT | over, adult ([facility]) | results section. | + +--------+ + + + | CAPILLARY BLOOD | Routin | 03/01/2018 | Morbid obesity | Results for this | | GLUCOSE (NO CHG), | e | 12:16 PM | with BMI of 70 and | procedure are in the | | POC | | PDT | over, adult ([facility]) | results section. | + [...] | PDT | over, adult ([facility]) | results section. | + +--------+ + + + | LAPAROSCOPIC | Electi | 03/01/2018 | Morbid obesity | | | NISH-EN-Y GASTRIC | ve | 8:31 AM | ([facility]) | | | BYPASS | [...] [facility] | [address] | [place], [place] | | | [facility] | [address] | [address] | | | TESTS | | | [...] - [facility] | [address] | [place], [place] | | | [facility] | [facility] | [address] | | | TESTS | | | [...] AMES | [address] | [place], [place] | | | [facility] | [address] | [address] | | | TESTS | | | [...] [facility] | [address] | [place], [place] | | | [facility] | [address] | [address] | | | TESTS | | | [...] [facility] | [address] | [place], [place] | | | [facility] | [facility] | [address] | | | TESTS | | | [...] (H) | 70 - 99 mg/dL | [facility] - | | | GLUCOSE, | [...] AMES | [address] | [place], [place] | | | [facility] | [address] | [address] | | | TESTS | | | [...] [facility] | [address] | [place], [place] | | | [facility] | [address] | [address] | | | TESTS | | | [...] [facility] | [address] | [place], [place] | | | [facility] | [facility] | [address] | | | TESTS | | | [...] (H) | 70 - 99 mg/dL | [facility] - | | | GLUCOSE, | [...] AMES | [address] | [place], [place] | | | [facility] | [address] | [address] | | | TESTS | | | [...] + + | Performing | Address | City/State[facility] | Phone Number | | Organization | | | | + + + + + | [facility] | [address] | [place], [place] | | | [facility] OF [facility] | [address] | [address] | | | TESTS | | | [...] [facility] | [address] | [place], [place] | | | [facility] | [facility] | [address] | | | TESTS | | | [...] (H) | 70 - 99 mg/dL | [facility] - | | | GLUCOSE, | [...] [facility] | [address] | [place], [place] | | | [facility] | [address] | [address] | | | TESTS | | | [...] + + | Performing | Address | City/State[facility] | Phone Number | | Organization | | | | + + + + + | [facility] | [address] | [place], [place] | | | [facility] | [facility] | [address] | | | TESTS | | | [...] [facility] | [address] | [place], [place] | | | [facility] CARE | [facility] | [address] | | | TESTS | | | [...] (H) | 70 - 99 mg/dL | [facility] - | | | GLUCOSE, | [...] [facility] | [address] | [place], [place] | | | [facility] | [address] | [address] | | | TESTS | | | [...] AMES | [address] | [place], [place] | | | [facility] | [facility] | [address] | | | TESTS | | | [...] [facility] | [address] | [place], [place] | | | [facility]ARE | [facility] | [address] | | | TESTS | | | [...] (H) | 70 - 99 mg/dL | [facility] - | | | GLUCOSE, | [...] [place] | [address] | [place], [place] | | | [facility] | [address] | [address] | | | TESTS | | | [...] AMES | [address] | [place], [place] | | | [facility] | [facility] | [address] | | | TESTS | | | [...] - [facility] | [address] | [place], [place] | | | [facility] CARE | [facility] | [address] | | | TESTS | | | [...] (H) | 70 - 99 mg/dL | [facility] - | | | GLUCOSE, | [...] [facility] | [address] | [place], [place] | | | [facility] | [address] | [address] | | | TESTS | | | [...] + + | Performing | Address | City/State[facility] | Phone Number | | Organization | | | | + + + + + | [facility] | [address] | [place], [place] | | | [facility] | [facility] | [address] | | | TESTS | | | [...] [facility] | [address] | [place], [place] | | | [facility] | [facility] | [address] | | | TESTS | | | [...] (H) | 70 - 99 mg/dL | [facility] - | | | GLUCOSE, | [...] [facility] | [address] | [place], [place] | | | [facility] | [address] | [address] | | | TESTS | | | [...] AMES | [address] | [place], [place] | | | [facility] CARE | [facility] | [address] | | | TESTS | | | [...] + | [facility] | [address] | [place], [place] | | | [facility] | [address] | [address] | | | TESTS | | | | + + + + + EGD (ESOPHAGOGASTRODUODENOSCOPY) (03/01/2018 11:21 AM PDT) + + + | Narrative | Performed At | + + + | Ion Castanon MD 03/01/2018 12:25 PM Date of Procedure: | | | 03/01/18 Primary Surgeon: Ion Castanon MD Co Surgeon or | | | curriculum assistant: Eldon Gonzalez MD, Chief Resident Alexx [...] The jejunum was divided with 60 mm Diaz stapler with white | | | load [...] created in each limb and a 60mm Diaz stapler | | | with white load was fired to create a [id number] | | | jejunojejunostomy. The anastamosis was confirmed to be widely | | | patent and hemostatic. The common enterotomy was closed by placing | | | 2 stay sutures along the enterotomy for retraction and firing an | | | Diaz 60mm stapler with white load across the [...] | | | was entered. The 60mm Diaz stapler with blue load was placed | [...] blue load of the 60mm stapler. The Diaz was then fired | | | longitudinally towards the angle of His to create the gastric pouch, | | | leaving the gastrotomy from foreign body removal, on the pouch. | | | Dissection was performed retrogastric to connect posterior and | | | anterior dissection planes and ensure adequate fundus exclusion. | | | Additional fires of the Diaz stapler were performed with blue | | [...] with | | | 5 mm clip process treater. A 25mm Orvil was passed transorally by [...] was closed with 60mm | | | Diaz stapler with a white load. Medially and [...] was present | | | as my curriculum assistant for the entire procedure, given the [...] MD Co Surgeon or | | | curriculum assistant: Eldon Gonzalez MD, Chief Resident Alexx | | | lAida MS4 Preoperative Diagnosis: Morbid Obesity with BMI [...] The jejunum was divided with 60 mm Diaz stapler with white | | | load [...] created in each limb and a 60mm Diaz stapler | | | with white load was fired to create a [id number]-zuea | | | jejunojejunostomy. The anastamosis was confirmed to be widely | | | patent and hemostatic. The common enterotomy was closed by placing | | | 2 stay sutures along the enterotomy for retraction and firing an | | | Diaz 60mm stapler with white load across the [...] | posterior to the nish limb. A [employer] liver retractor was | | | placed [...] | | | was entered. The 60mm Diaz stapler with blue load was placed | [...] blue load of the 60mm stapler. The Diaz was then fired | | | longitudinally towards the angle of His to create the gastric pouch, | | | leaving the gastrotomy from foreign body removal, on the pouch. | | | Dissection was performed retrogastric to connect posterior and | | | anterior dissection planes and ensure adequate fundus exclusion. | | | Additional fires of the Diaz stapler were performed with blue | | [...] with | | | 5 mm clip process treater. A 25mm Orvil was passed transorally by [...] was closed with 60mm | | | Diaz stapler with a white load. Medially and [...] was present | | | as my curriculum assistant for the entire procedure, given the [...] + + | [facility] | [address] | [place], [place] | | | [facility] | [facility] | [address] | | | TESTS | | | [...] AM PDT | | | | | 8/6/18 at 2100, Until | | | | [...] | | | | | NEEDED, Starting Tu03/02/18 at | | | | | | | 1630, Until 03/03/18 at 1930, | | | | | [...] | | | (after last modification) on Tue | | | | | | [...] mL/hr | mL/hr | | | Starting Thu03/01/18 at 1245, | | PM PDT | [...]
--- OUTSIDE RECORDS SUMMARY | ~2019-05-23 | XMS | Encounter Summary ---
Demographics + + + | Address | [address] | | | [place] [address] | + + + | Home Phone [...] + | Katalina Padilla | ECON | [address] | | | | | [place], [place] | | | | | [address] | | + + + + + | Ellie Vang | ECON | Unknown | | + + + + + Care Team Providers + +------+ + | Care Reverberatory Skimmer Name | Role | Phone | + [...] | | | [address] | [facility] | | | | | Mailcode: Center | [place], [place] | | | | | [facility] and | [address] | | | | | [facility] | [phone] | | | | | [place], [place] | | | | | | [address] | | | | | | [phone] | | | +--------+ + + + [...] | | | | | [place], [place] | | | | | | [address] | | | | | | [phone] | | | | | | | | +--------+ + + + + documented as of this encounter Visit Diagnoses Not on filedocumented in this encounter"
--- OUTSIDE RECORDS SUMMARY | ~2019-05-23 | XMS | Encounter Summary ---
Demographics + + + | Address | [address] | | | [place] [address] | + + + | Home Phone [...] + | Katalina Padilla | ECON | [address] | | | | | [place], [place] | | | | | [address] | | + + + + + | Ellie Vang | ECON | Unknown | | + + + + + Care Team Providers + +------+ + | Care Manager [employer] Sales Name | Role | Phone | [...] | | | | | | [facility], | [place], [place] | | | | | | [address] | [address] | | | | | | [place], [place] | Phone: | | | | | | [address] | [phone] | | | | | | Phone: | Fax: | | | | | | [phone] | [phone] | | | | | | Fax: | | | | | | | [phone] | | +--------+--------+ + + + + [...] | | | without | SURGICAL | [facility] | | | | | mention of | [address] [place], | | | | | obstruction | [address] | [place] | | | | | or gangrene | [address] | [address] | | | | | | [place], | Phone: | | | | | | [place] [address] | [phone] | | | | | | Phone: | Fax: | | | | | | [phone] | [phone] | | | | | | Fax: | | | | | | | [phone] | | +--------+--------+ + + + + [...] | | | | Mailcode: Center | [place], [place] | | | | | [facility] and | [address] | | | | | [facility] | [phone] | | | | | [place], [place] | | | | | | [address] | | | | | | [phone] | | | +--------+---------+ + + + [...] colonoscopy), but [facility] mentioned this was probably an incisional [...] issues. 2. Optimally will need coordination for [facility] Medicaid & [facility] Bariatric program for wt loss. 3. [...] material. 4. Continue to meet with her Fiber Optic Splicer in the outpatient setting for diet and [...] has been instructed to f/u w/ her felt dyeing machine tender for a strict diet of <1000 kcal/d [...] teaching. Howie Faria MD MIS/Bariatric Fellow, Pager [phone] [facility] Attending provider: Hernandez Brian MD [...] | | | | | [place], [place] | | | | | | [address] | | | | | | [phone] | | | | | | | [...]
--- OUTSIDE RECORDS SUMMARY | ~2019-05-23 | XMS | Encounter Summary ---
Demographics + + + | Address | [address] | | | [place] [address] | + + + | Home Phone [...] + | Katalina Padilla | ECON | [address] | | | | | [place], [place] | | | | | [address] | | + + + + + | Ellie Vang | ECON | Unknown | | + + + + + Care Team Providers + +------+ + | Care Table Assembler Metal Name | Role | Phone | [...] [id number] | | | | | | [facility] | | | | | | [place], [place] | | | | | | [address] | | | | | | [phone] | | | +--------+ + + + [...] | | | | | [place], [place] | | | | | | [address] | | | | | | [phone] | | | | | | | | +--------+ + + + + documented as of this encounter Visit Diagnoses Not on filedocumented in this encounter"
--- OUTSIDE RECORDS SUMMARY | ~2019-05-23 | XMS | Encounter Summary ---
Demographics + + + | Address | [address] | | | [place] [address] | + + + | Home Phone [...] [place], [place] | | | | | [address] | | + + + + + | Ellie Vang | ECON | Unknown | | + + + + + Care Team Providers + +------+ + | Care Android Ui Developer Name | Role | Phone | [...] | | | Procedures | | [address] [place], | | | | | [place] | | [place] | | | | | INITIAL | | [address] | | | | | ASSESSMNT | | | | | | | X15MIN [place] | | | | | | [...] | 2012 | Visit | Center at [facility] [address] | [address] | mellitus (HCC) | | | | [address] | [address] | (Primary Dx); Morbid | | | | Mailcode: Center | [place], [place] | obesity (HCC) | | | | for Health and | [address] | | | | | Healing, [place] [address] | | | | | | [place], [place] | | | | | | [address] | | | | | | [phone] | | | +--------+---------+ + + + [...] PDTNutrition appointment, -try keeping food logs online: -www.[employer] -[employer] -[employer] -Aim for 9522-6302 calories a day -Increase physical activity -try [...] appropriate portions. Denies any binge eating. Weight traveler changer the past year: > 100 lb wt [...] see an RD for 2 years in [place] but insurance quit paying for it. Up [...] 1000/d--a more appropriate long-term range would be 9350-2132/day. Inadequat e calcium intake; did not address [...] w/ meals & snacks 2. Aim for 1668-2325 kcal/d 3. Keep food logs (at least [...] needed. Olga Lidia Montanez RD, LD Pager [phone] documented in this en counter Plan of [...] | | 2018 | Visit | | [address] | | | | | | [place], [place] | | | | | | [address] | | | | | | [phone] | | | | | | | | +--------+ + + + + documented as of this encounter Procedures + +--------+ + + + | Procedure Name | Priori | Date/Time | Associated Diagnosis | Comments | | | ty | | | | + +--------+ + + + | DE MNT INITIAL | Routin | 04/14/2013 | [...]
--- OUTSIDE RECORDS SUMMARY | ~2019-05-23 | XMS | Encounter Summary ---
Demographics + + + | Address | [address] | | | [place] [address] | + + + | Home Phone [...] [place], [place] | | | | | [address] | | + + + + + | Ellie Vang | ECON | Unknown | | + + + + + Care Team Providers + +------+ + | Care Jira Administrator Name | Role | Phone | [...] | | | | | | | [facility] | | | | | | | Health and | | | | | | | Healing, | | | | | | | Building 2 | | | | | | | [place], [place] | | | | | | | [address] | | | | | | | Phone: | | | | | | | [phone] | | | | | | | Fax: | | | | | | | [phone] | +--------+--------+ + + + + Encounter [...] | [address] | Lesly Gutiérrez [place], | 2 diabetes mellitus | | | | Mailcode: Center | [place] [address] | (HCC) | | | | for Health and | | | | | | [facility], [facility] 2 | | | | | | [place], [place] | | | | | | [address] | | | | | | [phone] | | | +--------+---------+ + + + [...] of Visit: 12:29 to 12:57 (28 minutes onze-bv-zgrs with patient) SUBJECTIVE: Trying to follow a [...] post-surgery diet progression. 4. Call or send More Designhart message to dietitian with any questions. Contact information was provided. Follow up with dietitian prior to surgery to review post-surgical recommendations. Yuli Childs RD, CNSC, LD Pager# [phone] documented in this enco unter Plan of [...] | | 2018 | Visit | | [address] | | | | | | [place], [place] | | | | | | [address] | | | | | | [phone] | | | | | | | | +--------+ + + + + documented as of this encounter Procedures + +--------+ + + + | Procedure Name | Priori | Date/Time | Associated Diagnosis | Comments | | | ty | | | | + +--------+ + + + | [place] MNT RE-ASSESSMNT | Routin | 08/28/2014 | [...]
--- OUTSIDE RECORDS SUMMARY | ~2019-05-23 | XMS | Encounter Summary ---
Demographics + + + | Address | [address] | | | [place] [address] | + + + | Home Phone [...] [place], [place] | | | | | [address] | | + + + + + | Ellie Vang | ECON | Unknown | | + + + + + Care Team Providers + +------+ + | Care Residential Treatment Counselor Name | Role | Phone | + +------+ + | Kenyatta Cardenas MD | PCP | | + +------+ + Encounter Details +--------+ + + + + | Date | Type | Department | Care Team | Description | +--------+ + + + + | 03/10/ | Pharmacy | [facility] | | | | 2018 | Visit | & [facility] | | | | | | [address] | | | | | | Mailcode: Center | | | | | | [facility] and | | | | | | [facility], [facility] 1 | | | | | | [place], [place] | | | | | | [address] | | | | | | [phone] | | | +--------+ + + + [...] | | | | | [place], [place] | | | | | | [address] | | | | | | [phone] | | | | | | | | +--------+ + + + + documented as of this encounter Visit Diagnoses Not on filedocumented in this encounter"
--- OUTSIDE RECORDS SUMMARY | ~2019-05-23 | XMS | Encounter Summary ---
Demographics + + + | Address | [address] | | | [place] [address] | + + + | Home Phone [...] + | Katalina Padilla | ECON | [address] | | | | | [place], [place] | | | | | [address] | | + + + + + | Ellie Vang | ECON | Unknown | | + + + + + Care Team Providers + +------+ + | Care Medical Transcription Editor Name | Role | Phone | [...] repair incarcerated | | 2012 | | [facility] | [address] [facility] | ventral hernia; | | | | Admitting Desk | [address] | possible bowel | | | | Located on the | [place], [place] | resection; | | | | floor [address] [facility] | [address] | | | | | [address] | [phone] | | | | | [place], [place] | | | | | | [address] | | | +--------+---------+ + + + [...] yuriy tral hernia. She was transferred from [place] for surgical evaluation of possible incarcer ated [...] Cipro. POD 5 she was discharged ho vt, tolerating a diabetic diet. Having bowel function. [...] yuriy tral hernia. She was transferred from [place] for surgical evaluation of possible incarcer ated [...] Cipro. POD 5 she was discharged ho vt, tolerating a diabetic diet. Having bowel function. [...] keeping you from eating and drinking, Call [phone]. It is important to stay hydrated! If [...] taking narcotic that contain Tylenol (acetaminophen) Example: [place], Lortab, Vicodin, hydrocodone/APAP, Percocet, Tylenol #3 PAIN MEDICATIONS are ONLY REFILLED during CLINIC APPOINTMENTS. Please call [phone] to schedule an appointment. Your Follow-Up Plan Follow up with ROBIN MEJIA in 2 weeks. Contact information: [address] [facility] [address] Vitals on discharge: Ht 154.9 cm (5' [...] as of this encounter Progress Notes Kaleb Walkre NP - 11/12/2012 6:13 AM PDTFormatting of this note might be different f rom the original. [facility] [place] DEPARTMENT OF SURGERY EMERGENCY GENERAL SURGERY Division [...] without erythema and no infecti on noted. [place] intact : good urine output and Patient [...] clinic - [place]. [place] [phone] pager number [place] [phone] [facility] [address] Aminta Goodwin Md - 11/11/2012 7:40 AM PDT [facility] DEPARTMENT OF SURGERY EMERGENCY GENERAL SURGERY Division of Trauma and Critical Care Attending Physician: Andie Brian MD Progress Note Note Date: 11/11/2012 Admission Date: 11/06/2012 DYLAN ROMERO, [id number] Hospital Day #5 INTERVAL EVENTS none acute [...] mg, Rectal, DAILY PRN, Aminta Wilson MD cofsryqpjl-kmiyfmurqicrk-jkobiobh (aka FIORICET) 50-325-40 mg 1 Tab, 1 [...] 40 mEq, 40 mEq, Intravenous, BID, Aminta Wilosn MD, 40 mEq at 1108 promethazine (aka [...] Jayne Ponce MD, 1 mg at 11/10/12801 svivxykbft-mlkvtzjyxrtti-gyylcctm (aka FIORICET) 50-325-40 mg 1 Tab, 1 [...] in preservative free NaCl 0.9% 50 mL PARK AIDE infusion, , Intravenous, KIESHA NUOUS, Aracely Flores [...] diet -add bowel regimen Acute pain -HM PARK AIDE, tylenol -convert to oral pain medication once [...] Fluids: LR 125ml/hr Feeding: NPO Analgesia: Dilaudid PARK AIDE Sedation: not indicated Thromboprophylaxis: enoxaparin Head of [...] Ponce MD, 1 mg at 11/09/12 0855 uzigmcqhmr-flwyoqikryxgy-poclnwdd (aka FIORICET) 50-325-40 mg 1 Tab, 1 [...] in preservative free NaCl 0.9% 50 mL PARK AIDE infusion, , Intravenous, KIESHA NUOUS, Aracely Flores DO, 0.3 mg at 11/09/12 0853 insulin lispro (aka HUMALOG) injection, , Subcutaneous, MEALS and HS, Kaleb Walker, KALAYN ketorolac (aka TORADOL) injection 30 mg, 30 [...] 0.5-1 mg, 0.5-1 mg, Intravenous, Q6H PRN, nOur Allen MD, 0.5 mg at 11/07/12 0615 [...] drainage <30ml for 24hrs Acute pain -HM PARK AIDE, tylenol Diabetes: -insulin gtt not started due [...] Fluids: LR 125ml/hr Feeding: NPO Analgesia: Dilaudid PARK AIDE Sedation: not indicated Thromboprophylaxis: enoxaparin Head of bed: > 30 Ulcer prophylaxis: pepcid Glycemic control: adequate Activity/PT/OT: Ongoing Yogurt: ABX on Probiotics:yes AMINTA WILSON MD General Surgery, R1 aleb Walker S, N P - 11/08/2012 8:49 AM PDT [facility] [place] DEPARTMENT OF SURGERY EMERGENCY GENERAL SURGERY Division of Trauma and Critical Care Attending Physician: Andie Brian MD Progress Note Note Date: 11/08/2012 Admission Date: 11/06/2012 DYLAN ROMERO, [id number] Hospital Day #2 INTERVAL EVENTS NO SUBJECTIVE Pain well controlled; has headache attributed to dilaudid PARK AIDE Tylenol did not help. Flatus: YES Tolerating [...] trials today. -DC ruiz Acute pain -HM PARK AIDE, tylenol Diabetes: -insulin gtt not started due [...] Fluids: LR 125ml/hr Feeding: NPO Analgesia: Dilaudid PARK AIDE Sedation: not indicated Thromboprophylaxis: enoxaparin Head of bed: > 30 Ulcer prophylaxis: pepcid Glycemic control: adequate Activity/PT/OT: Ongoing Yogurt: ABX on Probiotics: No KALEB WALKER NP [facility] [address] [place] Critical access hospital elvin Stephens MD - 11/07/2012 9:51 PM PDT Trauma / Surgical Critical Care Service - Progress Note Name: DYLNA ROMERO Date: 11/07/2012 Time: 9:52 PM Author: [...] 7.33* PCO2 49* PO2 113* HCO3 25 [id number] 26 W7RIYQEU 98.3* B4WWXKBIC -- FIO2 60 ABGEXCESS -0.9 Assessment, Medical Decision Making and Plan 1. Incarcerated hernia, now s/p repair and panniculectomy -Binder, pain control, minimize nausea and coughing PRN. -NG clamping trials today. 2. Acute pain -HM PARK AIDE, tylenol 3. Diabetes: -insulin gtt 4. Morbid [...] Dione Grimes MD R-2, General Surgery Pager: [phone] [facility] [place] Department of Surgery Trauma ICU Team Pager (24hrs/day): [phone] I was present with the resident during the history and exam. I discussed the case with the resident and agree with the findings and plan as documented in the resident s note. KELVIN STEPHENS MD [facility] [address] [facility] [place] [address] [id number] Onur Graves MD - 11/07/2012 2:37 AM [...] in preservative free NaCl 0.9% 50 mL PARK AIDE infusion Intravenous CON TINUOUS Aracely Flores, DO [...] (aka BACTROBAN) 2 % ointment Nasal BID Danyn Lagos MD naloxone (aka NARCAN) injection Intravenous [...] POD#1 s/p primary repair. 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 ad taker and prn tylenol, continue prozac and zyprexa [...] F: probable remain NPO today A: dilaudid ad taker, prn tylenol S: prn benzos as she is at home T: will start prophylactic lovenox today H: HOB >30 degrees U: pepcid G: insulin gtt ONUR ALLEN MD, PGY3 [place] [address] [facility] [id number] [place] [address] Onelia Shrestha MD - 11/06/2012 8:41 AM PDT [facility] [place] DEPARTMENT OF SURGERY Division of Trauma and Critical Care Emergency General Surgery / Acute Care Surgery Attending Physician: Andie Brian MD Note Date: 11/06/2012 Admission Date: 11/06/2012 DYLAN ROMERO, [id number] Hospital Day #0 OVERNIGHT EVENTS: anxious SUBJECTIVE: [...] wwp LABS: reviewed and are available in [facility] (if new data) IMAGING: VASCULAR: IMPRESSION: Dylan [...] | | | | | [place] [facility] [place] | | | | | | [address] | | | | | | [phone] | | | | | | | [...] Mae | | | | | | [place] | | | | + + + [...] AMES | [address] | [place], [place] | | | JUSTINE DAWN OF JAKY | [facility] | [address] | | | TESTS | | | [...] - YAKOVAM | [address] | [place], [place] | | | [place] POINT OF CARE | [facility] | [address] | | | TESTS | | | [...] [facility] | [address] | [place] [address] | | | SERVICES, CORE | PARK [...] + | [facility] | [address] | [place] [address] | | | SERVICES, CORE | CLARENCE [...] | + + + + + | [facility] | [address] | [place] [address] | | | LYDIA RANGEL | CLARENCE [...] - KWAKU | [address] | [place], [place] | | | JUSTINE DAWN OF CARE | [facility] | [address] | | | TESTS | | | [...] (H) | 60 - 99 mg/dL | [facility] - | | | GLUCOSE, | | [...] AMES | [address] | [place], [place] | | | JUSTINE DANW OF CARE | [facility] | [address] | | | TESTS | | | [...] KWAKU | [address] | [place], [place] | | | JUSTINE DAWN OF JAKY | [address] | [address] | | | TESTS | | | [...] - KWAKU | [address] | [place], [place] | | | JUSTINE DAWN OF CARE | [facility] | [address] | | | TESTS | | | [...] (H) | 60 - 99 mg/dL | [facility] - | | | GLUCOSE, | | [...] AMES | [address] | [place], [place] | | | L[place]PE[place] POINT OF CARE | [address] | [address] | | | TESTS | | | [...] + + | [facility] | [address] [facility] | [place] [address] | | | SERVICES, CORE | CLARENCE [...] the MDRD equation recommended by the | [facility] | | National Kidney Disease Education Program. [...] | + + + + + | [facility] | [address] [facility] | [place] [address] | | | CLAIRE, LYDIA | CLARENCE [...] | + + + + + | [facility] | [address] | [place] [address] | | | SERVICES, CORE | CLARENCE [...] (H) | 60 - 99 mg/dL | [facility] - | | | GLUCOSE, | | [...] AMES | [address] | [place], [place] | | | JUSTINE DAWN OF CARE | [address] | [address] | | | TESTS | | | [...] YAKOVAM | [address] | [place], [place] | | | JUSTINE DAWN OF JAKY | [address] | [address] | | | TESTS | | | [...] MARQUAM | [address] | [place], [place] | | | L[place]PE[place] POINT OF CARE | [address] | [address] | | | TESTS | | | [...] AMES | [address] | [place], [place] | | | JUSTINE DAWN OF CARE | [address] | [address] | | | TESTS | | | [...] MARQUAM | [address] | [place], [place] | | | JUSTINE DAWN OF JAKY | [facility] | [address] | | | TESTS | | | [...] [facility] | [address] | [place] [address] | | | SERVICES, CORE | CLARENCE [...] [facility] | [address] | [place] [address] | | | SERVICES, CORE | PARK [...] + | [facility] | [address] | [place] [address] | | | SERVICES, CORE | CLARENCE [...] MARQUAM | [address] | [place], [place] | | | JUSTINE DAWN OF CARE | [address] | [address] | | | TESTS | | | [...] MARPATAM | [address] | [place], [place] | | | JUSTINE DAWN OF CARE | [facility] | [address] | | | TESTS | | | [...] AMES | [address] | [place], [place] | | | JUSTINE DAWN OF CARE | [address] | [address] | | | TESTS | | | [...] | | | Final CULTURE | | [place] | | | | RESULT:>100,000 cfu/ml | [...] + | [facility] | [address] | [place] [address] | | | [place] | | | | + + + [...] + + | [facility] | [address] | [place] [address] | | | SERVICES, CORE | CLARENCE [...] | + + + + + | [facility] | [address] | [place] [address] | | | CLAIRE, [facility] | [address] | | | + + + + + CAPILLARY BLOOD GLUCOSE (NO CHG), POC (11/09/2012 6:10 AM PDT) + +-------+ + + + | Component | Value | Ref Range | Performed | Pathologist | | | | | At | Signature | + +-------+ + + + | BLOOD | 90 | 60 - 99 mg/dL | [facility] - | | | GLUCOSE, | | [...] AMES | [address] | [place], [place] | | | JUSTINE DAWN OF CARE | [facility] | [address] | | | TESTS | | | [...] the MDRD equation recommended by the | GASU | | National Kidney Disease Education Program. [...] | + + + + + | [facility] | [address] | [place] [address] | | | CLAIRE, [facility] | [address] | | | + [...] [facility] | [address] | [place] [address] | | | SERVICES, CORE | PARK [...] | + + + + + | [facility] | [address] | [place] [address] | | | SERVICES, CORE | CLARENCE [...] 86 | 60 - 99 mg/dL | [facility] - | | | GLUCOSE, | | [...] + + + | NKECHI AMES | [address] | [place], [place] | | | [place] [facility] | [address] | [address] | | | TESTS | | | [...] MARQUAM | [address] | [place], [place] | | | JUSTINE DAWN OF CARE | [address] | [address] | | | TESTS | | | [...] - KWAKU | [address] | [place], [place] | | | [facility] [facility] [facility] | [facility] | [address] | | | TESTS | | | [...] | + + + + + | [facility] | [address] | [place] [address] | | | SERVICES, CORE | [address] | | | + + + + + MAGNESIUM, PLASMA (11/08/2012 7:48 AM PDT) + +---------+ + + + | Component | Value | Ref Range | Performed | Pathologist | | | | | At | Signature | + +---------+ + + + | MAGNESIUM,P | 1.4 (L) | 1.8 - 2.5 mg/dL | [facility] | | | LASMA | | | [...] + + | [facility] | [address] | [place] [address] | | | SERVICES, CORE | CLARENCE [...] | + + + + + | [facility] | [address] | [place] [address] | | | LYDIA RANGEL | CLARENCE [...] - MARQUAM | [address] | [place], [place] | | | L[place]PE[place] POINT OF CARE | [address] | [address] | | | TESTS | | | [...] AMES | [address] | [place], [place] | | | L[place]PEZ POINT OF CARE | [address] | [address] | | | TESTS | | | [...] MARQUAM | [address] | [place], [place] | | | JUSTINE DAWN OF CARE | [address] | [address] | | | TESTS | | | [...] | [facility] | [address] [facility] | [place] [address] | | | SERVICES, CORE | PARK [...] [facility] | [address] | [place] [address] | | | SERVICES, CORE | PARK [...] + | [facility] | [address] | [place] [address] | | | SERVICES, CORE | CLARENCE [...] | | + +---------+ + + | [facility] DEPARTMENT OF | | | | | [...] | | + +---------+ + + | [facility] DEPARTMENT OF | | | | | [...] [facility] | [address] | [place] [address] | | | SERVICES, CORE | PARK [...] | + + + + + | [facility] | [address] | [place] [address] | | | CLAIRE, LYDIA | PARK [...] + | [facility] | [address] | [place] [address] | | | SERVICES, CORE | CLARENCE [...] KWAKU | [address] | [place], [place] | | | JUSTINE DAWN OF JAKY | [address] | [address] | | | TESTS | | | [...] KWAKU | [address] | [place], [place] | | | JUSTINE DAWN OF CARE | [address] | [address] | | | TESTS | | | [...] KWAKU | [address] | [place], [place] | | | JUSTINE DAWN OF JAKY | [facility] | [address] | | | TESTS | | | [...] MARQUAM | [address] | [place], [place] | | | [facility] | [address] | [address] | | | TESTS | | | [...] AMES | [address] | [place], [place] | | | JUSTINE DAWN OF JAKY | [facility] | [address] | | | TESTS | | | [...] MARQUAM | [address] | [place], [place] | | | JUSTINE DAWN OF CARE | [facility] | [address] | | | TESTS | | | [...] MARQUAM | [address] | [place], [place] | | | JUSTINE DAWN OF JAKY | [facility] | [address] | | | TESTS | | | [...] AMES | [address] | [place], [place] | | | L[place] POINT OF CARE | [address] | [address] | | | TESTS | | | [...] MARQUAM | [address] | [place], [place] | | | JUSTINE DAWN OF CARE | [facility] | [address] | | | TESTS | | | [...] AMES | [address] | [place], [place] | | | [place] POINT OF CARE | [address] | [address] | | | TESTS | | | [...] KWAKU | [address] | [place], [place] | | | JUST[place] DAWN OF JAKY | [address] | [address] | | | TESTS | | | [...] | + + + + + | [facility] | [address] | [place] [address] | | | SERVICES, | [address] [...] (H) | 60 - 99 mg/dL | [facility] - | | | GLUCOSE, | | [...] AMES | [address] | [place], [place] | | | JUSTINE DAWN OF JAKY | [facility] | [address] | | | TESTS | | | [...] [facility] | [address] | [place] [address] | | | SERVICES, | [address] [...] [facility] | [address] | [place] [address] | | | SERVICES, | [address] [...] + + | [facility] | [address] | [place] [address] | | | SERVICES, LYDIA | CLARENCE [...] [facility] | [address] | [place] [address] | | | SERVICES, LYDIA | PARK [...] [facility] | [address] | [place] [address] | | | SERVICES, CORE | PARK [...] [facility] | [address] | [place] [address] | | | SERVICES, CORE | PARK [...] the MDRD equation recommended by the | [facility] | | National Kidney Disease Education Program. [...] [facility] | [address] | [place] [address] | | | LYDIA RANGEL | CLARENCE [...] view image for the detailed interpretation from [employer] results. | CARDIOLOGY | + + + + + + + + | Performing | Address | City/State/Zipcode | Phone Number | | Organization | | | | + + + + + | [facility] | [address] | [place], [place] | | | CARDIOLOGY | [facility] | [address] | | + + + + + [...] [facility] | [address] | [place] [address] | | | SERVICES, CORE | CLARENCE [...] + + | [facility] | [address] | [place] [address] | | | SERVICES, LYDIA | [address] | | | + + + + + documented in this encounter Visit Diagnoses + + | Diagnosis | + + | Incarcerated ventral hernia Ventral hernia, unspecified, with obstruction | + + documented in this encounter
--- OUTSIDE RECORDS SUMMARY | ~2019-05-23 | XMS | Encounter Summary ---
Demographics + + + | Address | [address] | | | [place] [address] | + + + | Home Phone [...] + | Katalina Padilla | ECON | [address] | | | | | [place], [place] | | | | | [address] | | + + + + + | Ellie Vang | ECON | Unknown | | + + + + + Care Team Providers + +------+ + | Care Commercial Marketing Specialist Name | Role | Phone | + +------+ + | Fadi Goodrich DO | PCP | | + +------+ + Encounter Details +--------+ + + + + | Date | Type | Department | Care Team | Description | +--------+ + + + + | 11/04/ | Telephone | [facility] | Leslie Mistry, | | | 2017 | | Floor [address] | PhD [address] [facility] | | | | | Brenton Flannery Mailcode: | [address] | | | | | [address] [place], [place] | | | | | [facility], | [address] | | | | | [facility] | [phone] | | | | | Floor [place], [place] | | | | | | [address] | | | | | | [phone] | | | +--------+ + + + [...] [place] | | | | | | [address] | | | | | | [phone] | | | | | | | | +--------+ + + + + documented as of this encounter Visit Diagnoses Not on filedocumented in this encounter"
--- OUTSIDE RECORDS SUMMARY | ~2019-05-23 | XMS | Encounter Summary ---
Demographics + + + | Address | [address] | | | [place] [address] | + + + | Home Phone [...] + | Katalina Padilla | ECON | [address] | | | | | [place], [place] | | | | | [address] | | + + + + + | Ellie Vang | ECON | Unknown | | + + + + + Care Team Providers + +------+ + | Care Top Trimmer Name | Role | Phone | [...] | | | | | | | [place] [facility] | | | | | | | Health and | | | | | | | Healing, | | | | | | | Building 2 | | | | | | | [place], [place] | | | | | | | [address] | | | | | | | Phone: | | | | | | | [phone] | | | | | | | Fax: | | | | | | | [phone] | +--------+--------+ + + + + Encounter [...] | | | | Mailcode: Center | [place], [place] | (FORMERLY [facility]) | | | | for Health and | [address] | | | | | [facility] 2 | | | | | | [place], [place] | | | | | | [address] | | | | | | [phone] | | | +--------+---------+ + + + [...] of Visit: 10:06 to 10:32 (26 minutes [id number]-sb-[id number] with patient & friend) SUBJECTIVE: Is surprised she has gained weight; is disappointed. Still following her usual meal plan. H as d/c'd diet soda. Still struggling w/ eating out of boredom - choosing 100 kcal snacks but having ~3 of them at a time. Not as much emotional eating lately. Has been keeping food log s (on paper) - avg 6902-5474 kcal/d. Trying to increase activity. B: Atkins [...] provided. Olga Lidia Montanez RD, LD Pager [phone] documented in this en counter Plan of [...] [place] | | | | | | [address] | | | | | | [phone] | | | | | | | [...] X15MIN | e | 1:32 PM | ([facility]) Type 2 | | | | | PST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 | | | | | | ([facility]) | | + +--------+ + + + documented in this encounter Visit Diagnoses + + | Diagnosis | + + | Morbid obesity ([facility]) - Primary Morbid obesity | + + | Type 2 diabetes mellitus ([facility]) Type II or unspecified type diabetes mellitus without | | mention of complication, not stated as uncontrolled | + + documented in this encounter
--- OUTSIDE RECORDS SUMMARY | ~2019-05-23 | XMS | Encounter Summary ---
Demographics + + + | Address | [address] | | | [place] [address] | + + + | Home Phone [...] + | Katalina Padilla | ECON | [address] | | | | | [place], [place] | | | | | [address] | | + + + + + | Ellie Vang | ECON | Unknown | | + + + + + Care Team Providers + +------+ + | Care Casing Machine Operator Name | Role | Phone [...] | 2012 | | Center at [facility] [address] | MD [address] | | | | | [address] | [facility] | | | | | Mailcode: Center | [place], [place] | | | | | [facility] Health and | [address] | | | | | [facility] 2 | [phone] | | | | | [place], [place] | | | | | | [address] | | | | | | [phone] | | | +--------+ + + + [...] [place] | | | | | | [address] | | | | | | [phone] | | | | | | | | +--------+ + + + + documented as of this encounter Visit Diagnoses Not on filedocumented in this encounter"
--- OUTSIDE RECORDS SUMMARY | ~2019-05-23 | XMS | Encounter Summary ---
Demographics + + + | Address | [address] | | | [place] [address] | + + + | Home Phone [...] + | Katalina Padilla | ECON | [address] | | | | | [place], [place] | | | | | [address] | | + + + + + | Ellie Vang | ECON | Unknown | | + + + + + Care Team Providers + +------+ + | Care Lead Php Developer Name | Role | Phone | [...] | 2016 | on | Center at [place] [address] | | | | | | [address] | | | | | | Mailcode: [place] | | | | | | for Health and | | | | | | [facility] 2 | | | | | | [place], [place] | | | | | | [address] | | | | | | [phone] | | | +--------+ + + + [...] [place] | | | | | | [address] | | | | | | [phone] | | | | | | | | +--------+ + + + + documented as of this encounter Visit Diagnoses Not on filedocumented in this encounter"
--- OUTSIDE RECORDS SUMMARY | ~2019-05-23 | XMS | Encounter Summary ---
Demographics + + + | Address | [address] | | | [place] [address] | + + + | Home Phone [...] + | Katalina Padilla | ECON | [address] | | | | | [place], [place] | | | | | [address] | | + + + + + | Ellie Vang | ECON | Unknown | | + + + + + Care Team Providers + +------+ + | Care Special Events Planner Name | Role | Phone | [...] LAPAROSCOPIC | | 2013 | | [facility] | [address] | CHOLECYSTECOMY WITH | | | | Admitting Desk | Clarence Gutiérrez [place], | INTRA-OP | | | | Located on the | [place] [address] | CHOLANGIOGRAM | | | | floor [address] | [phone] | | | | | [address] | | | | | | [place], [place] | | | | | | [address] | | | +--------+---------+ + + + [...] the resident s note. PRADIP STARR MD [facility] [address] [facility] [place] [address] orrest, Maryam Yu MD - 1:05 PM PDT [facility] DEPARTMENT OF SURGERY EMERGENCY GENERAL [...] Type 2 DM who presented to the [facility] ED ([place], [place]) on 02/06/14, with a week hi story of RUQ abdominal pain that radiates to her back. There, she was found to have leukocyt osis and multiple tiny, mobile stones, + sonographic Pteerson's sign on abdominal ultrasound, concerning for acute cholecystitis. She was givenIV antibiotics (cipro, flagyl) and pain med s, then transferred to [facility] by [facility] for further care. Ms. Romero endorsed [...] up with Trauma Emergency General Surgery at [facility] In 4 weeks. (follow up in 2-4 weeks ) Contact information [address] [facility] Mailcode: L[address] [place] [address] Thank you for the [...] Instructions: Follow above instructions Discharge Nurse: BRIDGER MORAELS RN Date: 02/08/2014 Discharge Time: 4:23 PM [...] the resident s note. PRADIP STARR MD [facility] [address]A [address] [place] [phone] orrest, Maryam Yu MD - 5:17 AM PDT [facility] DEPARTMENT OF SURGERY EMERGENCY GENERAL SURGERY Division [...] tolerated MARYAM RHODES MD PGY-1, General Surgery 460[address] pager number [facility] A [address] [place] [facility] [place] [address] documented in this encoun ter Plan of [...] | | 2019 | Visit | | [address] | | | | | | [place], [place] | | | | | | [address] | | | | | | [phone] | | | | | | | [...] MARQUAM | [address] | [place], [place] | | | JUSTINE DAWN OF CARE | [address] | [address] | | | TESTS | | | [...] YAKOVAM | [address] | [place], [place] | | | L[place]PE[place] POINT OF CARE | [address] | [address] | | | TESTS | | | [...] AMES | [address] | [place], [place] | | | JUSTINE DAWN OF JAKY | [address] | [address] | | | TESTS | | | [...] MARQUAM | [address] | [place], [place] | | | JUSTINE DAWN OF CARE | [address] | [address] | | | TESTS | | | [...] LABORATORY | [address] | [place] [address] | | | SERVICES, | [address] [...] | [facility] | [address] | [place] [address] | | | SERVICES, | [address] [...] MARQUAM | [address] | [place], [place] | | | [place] POINT OF CARE | [facility] | [address] | | | TESTS | | | [...] | + + + + + | [facility] LABORATORY | [address] | [place] [address] | | | SERVICES, CORE | [address] [...] [facility] | [address] | [place] [address] | | | SERVICES, CORE | [address] [...] | + + + + + | [facility] [employer] | [address] | [place] [address] | | | SERVICES, CORE | [address] | | | + + + + + MAGNESIUM, PLASMA (02/07/2014 6:32 AM PDT) + +---------+ + + + | Component | Value | Ref Range | Performed | Pathologist | | | | | At | Signature | + +---------+ + + + | MAGNESIUM,P | 1.6 (L) | 1.8 - 2.5 mg/dL | [facility] | | | LASMA | | [...] | + + + + + | [facility] LABORATORY | [address] | [place] [address] | | | SERVICES, CORE | [address] [...] | | | LABORATORY | | | ANGOLAN | | | SERVICES, | | | [...] [facility] | [address] | [place] [address] | | | SERVICES, CORE | [address] [...] MARQUAM | [address] | [place], [place] | | | JUSTINE DAWN OF CARE | [address] | [address] | | | TESTS | | | [...] pattern. | | | | | | Spinning Doffer | | | | | | sections [...] | [facility] | [address] | [place] [address] | | | PATHOLOGY | [address] [...]
--- OUTSIDE RECORDS SUMMARY | ~2019-05-23 | XMS | Encounter Summary ---
[...] + | Katalina Padilla | ECON | [address] | | | | | [place], [place] | | | | | [address] | | + + + + + | Ellie Vang | ECON | Unknown | | + + + + + Care Team Providers + +------+ + | Care Worm Farmer Name | Role | Phone | [...] Mailcode:OP14B | | | | | | [facility] | | | | | | [place], [place] | | | | | | [address] | | | | | | [phone] | | | +--------+ + + + [...] [place] | | | | | | [address] | | | | | | [phone] | | | | | | | [...] in | | | | | | [place]. | | | | | | | | | | | | Julia Blackman at [facility]. | | | | | | | [...] | | | | artery. A 4.1 Welsh | | | | | | catheter was navigated | | | | | | over0.035" Donal coated | | | | | | Run[place]it[place]on guide wire into | | | | [...] | + +---------+ + + | [facility] DEPARTMENT OF | | | | | RADIOLOGY | | | | + +---------+ + + documented in this encounter Visit Diagnoses Not on filedocumented in this encounter
--- OUTSIDE RECORDS SUMMARY | ~2019-05-23 | XMS | Encounter Summary ---
Demographics + + + | Address | [address] | | | [place] [address] | + + + | Home Phone [...] [place], [place] | | | | | [address] | | + + + + + | Ellie Vang | ECON | Unknown | | + + + + + Care Team Providers + +------+ + | Care Roll Filler Name | Role | Phone | + +------+ + | Kenyatta Cardenas MD | PCP | | + +------+ + Encounter Details +--------+ + + + + | Date | Type | Department | Care Team | Description | +--------+ + + + + | 03/01/ | Procedure | 6A Intra Op [facility] | | | | 2018 | Pass | [facility] | | | | | | Admitting Desk | | | | | | Located on the | | | | | | [facility] [address] [facility] | | | | | | [facility] | | | | | | [place], [place] | | | | | | [address] | | | +--------+ + + + [...] | | 2019 | Visit | | [address] | | | | | | [place] [facility] [place] | | | | | | [address] | | | | | | [phone] | | | | | | | | +--------+ + + + + documented as of this encounter Visit Diagnoses Not on filedocumented in this encounter"
--- OUTSIDE RECORDS SUMMARY | ~2019-05-23 | XMS | Encounter Summary ---
Demographics + + + | Address | [address] | | | [place] [address] | + + + | Home Phone [...] + | Katalina Padilla | ECON | [address] | | | | | [place], [place] | | | | | [address] | | + + + + + | Ellie Vang | ECON | Unknown | | + + + + + Care Team Providers + +------+ + | Care Curve Saw Operator Name | Role | Phone | + +------+ + | Fadi Goodrich DO | PCP | | + +------+ + Encounter Details +--------+ + + + + | Date | Type | Department | Care Team | Description | +--------+ + + + + | 11/09/ | Abstract | Cardiology | Randell Franks, | | | 2014 | | Preventive at [facility] | MD [address] | | | | | [address] | Ave [place], [place] | | | | | Mailcode: CH9A | [address] | | | | | [facility] | [phone] | | | | | and Healing, | | | | | | Building [address] | | | | | | [place], [place] | | | | | | [address] | | | | | | [phone] | | | +--------+ + + + [...] [place] | | | | | | [address] | | | | | | [phone] | | | | | | | | +--------+ + + + + documented as of this encounter Visit Diagnoses Not on filedocumented in this encounter"
--- OUTSIDE RECORDS SUMMARY | ~2019-05-23 | XMS | Encounter Summary ---
Demographics + + + | Address | [address] | | | [place] [address] | + + + | Home Phone [...] [place], [place] | | | | | [address] | | + + + + + | Ellie Vang | ECON | Unknown | | + + + + + Care Team Providers + +------+ + | Care Nanoscience Technician Name | Role | Phone | [...] | | | | | Healing, | [place], [place] | | | | | | Building [address] | [address] | | | | | | [place], [place] | Phone: | | | | | | [address] | [phone] | | | | | | Phone: | Fax: | | | | | | [phone] | [phone] | | | | | | Fax: | | | | | | | [phone] | | +--------+--------+ + + + + [...] | | | | | Healing, | [place], [place] | | | | | | [address] | [address] | | | | | | [place], [place] | Phone: | | | | | | [address] | [phone] | | | | | | Phone: | Fax: | | | | | | [phone] | [phone] | | | | | | Fax: | | | | | | | [phone] | | +--------+--------+ + + + + Encounter Details +--------+ + + + + | Date | Type | Department | Care Team | Description | +--------+ + + + + | 10/07/ | Hospital | Radiology/Imaging | | | | 2012 | Encounter | Lab at [facility] [address] | | | | | [address] Mailcode: | | | | | | [facility] | | | | [facility] and Healing, | | | | | | Building 1, 3rd | | | | | | Floor [place], [place] | | | | | | [address] | | | | | | [phone] | | | +--------+ + + + [...] | | 2019 | Visit | | [address] | | | | | | [place] [facility] [place] | | | | | | [address] | | | | | | [phone] | | | | | | | [...] + | Transcriptions | + + | Simran Lobo - 10/18/2012 11:00 AM PDT | + [...] 12 | 6 - 20 mg/dL | [facility], | | | | | | POINT [...] + + + + + | NKECHI VALDEZ, POINT | [address] [facility] | [place] [address] | | | OF CARE TESTS | | | | + + + + + documented in this encounter Visit Diagnoses + + | Diagnosis | + + | Hernia Hernia of unspecified site of abdominal cavity without mention of obstruction | | or gangrene | + + documented in this encounter"
--- OUTSIDE RECORDS SUMMARY | ~2019-05-23 | XMS | Encounter Summary ---
Demographics + + + | Address | [address] | | | [place] [address] | + + + | Home Phone [...] [place], [place] | | | | | [address] | | + + + + + | Ellie Vang | ECON | Unknown | | + + + + + Care Team Providers + +------+ + | Care Adventure Challenge Instructor Name | Role | Phone | [...] | | 2017 | | Preventive at [facility] | MD [address] | | | | | [address] | [place] [facility] [place] | | | | | Mailcode: [facility] | [address] | | | | | [facility] | [phone] | | | | | and [place] | | | | | | Building [address] | | | | | | [facility] [place] | | | | | | [address] | | | | | | [phone] | | | +--------+ + + + [...] [place] | | | | | | [address] | | | | | | [phone] | | | | | | | | +--------+ + + + + documented as of this encounter Visit Diagnoses Not on filedocumented in this encounter"
--- OUTSIDE RECORDS SUMMARY | ~2019-05-23 | XMS | Encounter Summary ---
Demographics + + + | Address | [address] | | | [place] [address] | + + + | Home Phone [...] + | Katalina Padilla | ECON | [address] | | | | | [place], [place] | | | | | [address] | | + + + + + | Ellie Vang | ECON | Unknown | | + + + + + Care Team Providers + +------+ + | Care Methane Gas Collection System Operator Name | Role | Phone [...] | | | | | essential | [address] | [address] | | | | | hypertension | [address], | Ave | | | | | Type II or | [address] | [place], [place] | | | | | unspecified | [place], [place] | [address] | | | | | type | [address] | Phone: | | | | | diabetes | Phone: | [phone] | | | | | mellitus | [phone] | Fax: | | | | | without | Fax: | [phone] | | | | | mention of | [phone] | | | | | | complication [...] | 2015 | Visit | Preventive at [facility] | MD [address] | mellitus (HCC) | | | | [address] | Ave [place], [place] | (Primary Dx) | | | | Mailcode: 9A | [address] | | | | | [facility] | [phone] | | | | | and Healing, | | | | | | Building [address] | | | | | | [place], [place] | | | | | | [address] | | | | | | [phone] | | | +--------+---------+ + + + [...] | | | | | [place], [place] | | | | | | [address] | | | | | | [phone] | | | | | | | [...] | + + + + + | [facility] | [address] | [place] [address] | | | SERVICES, CORE | CLARENCE [...] | [facility] | [address] | [place] [address] | | | SERVICES, SPECIAL | [address] [...]
--- OUTSIDE RECORDS SUMMARY | ~2019-05-23 | XMS | Encounter Summary ---
Demographics + + + | Address | [address] | | | [place] [address] | + + + | Home Phone [...] + | Katalina Padilla | ECON | [address] | | | | | [place], [place] | | | | | [address] | | + + + + + | Ellie Vang | ECON | Unknown | | + + + + + Care Team Providers + +------+ + | Care Disease Case Manager Rn Name | Role | Phone | [...] Mailcode:OP14B | | | | | | [facility] | | | | | | [place], [place] | | | | | | [address] | | | | | | [phone] | | | +--------+ + + + [...] | | | | [place], [place] | | | | | | [address] | | | | | | [phone] | | | | | | | [...] OTOOLE, | | | | | | M.D.-Radiologist 2: | | | | | | SUSHILA OTOOLE, | | | | | | MDYLAN [...] | | + +---------+ + + | [facility] DEPARTMENT OF | | | | | RADIOLOGY | | | | + +---------+ + + ANA/JAMEY CADET/ALEENA/TATO/INFU (05/15/1993 9:30 AM PDT) + + + [...] filming | | | | | | 09/26, 08/01. OPERATION #2: | | | | [...] | | | | navigated a #5.5 Burmese | | | | | | Ozzy [...] | | + +---------+ + + | [facility] DEPARTMENT OF | | | | | RADIOLOGY | | | | + +---------+ + + ANG/EXIST CATH/FU/EMB/INFU (05/14/1993 7:31 PM PDT) + + + + + + | Component | Value | Ref Range | Performed | Pathologist | | | | | At | Signature | + + + + + + | ANG/EXIST | Radiologist 1: MAKR, | | | | | CATH/FU/EMB | [...] + +---------+ + + ANG/EXIST CHICHI/ALEENA/TATO/INFU (05/14/1993 2:20 PM PDT) + + + [...] | | + +---------+ + + | [facility] DEPARTMENT OF | | | | [...] Dictated: | | | | | | 10-19-93 PREOPERATIVE | | | | | | [...] | | + +---------+ + + | [facility] DEPARTMENT OF | | | | | RADIOLOGY | | | | + +---------+ + + ANG/EXIST CHICHI/ALEENA/EMB/INFU (05/14/1993 6:45 AM PDT) + + + [...] | | | | | | a#5.5 Burmese sheath was | | | | | | secured into place. In | | | | | | a similar fashion, | | | | | | a#7.0 Burmese sheath was | | | | | [...] | | | | | The #7 Burmese Brite | | | | | | [...] | | + +---------+ + + | [facility] DEPARTMENT OF | | | | [...] | | + +---------+ + + | [facility] DEPARTMENT OF | | | | | RADIOLOGY | | | | + +---------+ + + documented in this encounter Visit Diagnoses Not on filedocumented in this encounter
--- OUTSIDE RECORDS SUMMARY | ~2019-05-23 | XMS | Encounter Summary ---
Demographics + + + | Address | [address] | | | [place] [address] | + + + | Home Phone [...] [place], [place] | | | | | [address] | | + + + + + | Ellie Vang | ECON | Unknown | | + + + + + Care Team Providers + +------+ + | Care Room Service Associate Name | Role | Phone | [...] | Pain | Diagnoses | T[place], | Thimble Press Operator Psych | | | | Management | Morbid | Shereen Murcia ACNP | [facility] [address] | | | | | obesity with | [address] | | | | | BMI of [address] | [address] | Mailcode: | | | | | and over, | [place], [place] | [address] | | | | | adult ([facility]) | [address] | for Health | | | | | Procedures | Phone: | and Healing, | | | | | CONSULT TO | [phone] | Building 1, | | | | | PAIN | Fax: | 15th Floor | | | | | MANAGEMENT | [phone] | [place], [place] | | | | | [place] | | [address] | | | | | PSYCHIATRIC | | Phone: | | | | | DIAGNOSTIC | | [phone] | | | | | EVAL, NO MED | | Fax: | | | | | [facility] [place] | | [phone] | | | | | PSYCH TSTNG | | | | | | | PSYCH/PHYS | | | +--------+---------+ + + + + Encounter Details +--------+---------+ + + + | Date | Type | Department | Care Team | Description | +--------+---------+ + + + | 10/02/ | Office | Pain Center at [facility] | Leslie Mistry, | Morbid obesity | | 2018 | Visit | 15th Floor [address] | PhD [address] | ([facility]); Bipolar | | | | [address] Mailcode: | [address] | affective disorder, | | | | [facility] Center for | [place], [place] | remission status | | | | Health and Healing, | [address] | unspecified ([facility]); | | | | | [phone] | BMI 60.0-69.9, adult | | | | Floor [place], [place] | | ([facility]); Anxiety | | | | [address] | | | | | | [phone] | | | +--------+---------+ + + + [...] Name: Elzbieta Cristina : 1975 Medical Record: [id number] Age: 42 y.o. Weight today, per patient report: 305 lbs Weight on 09/11/17: 389, BMI 73.54 Identifying Information: Elzbieta Cristina is a 42 y.o. female who lives with her mother in [place], [place]. She was referred for psychological evaluation [...] of cereal with skim milk and a czech yogurt L: white bread and cheese and [...] laundry. For enjoym ent the patient watches [employer] with her girlfriend. She is socially active [...] Social History: Elzbieta Cristina was born in [place] and lived with her mother and sister. [...] time I spent was approximately 60 minutes lvnh-gj-swus with the patient and approxima tely 2 hours of emk-lojr-yx-face testing, interpreting and synthesizing results. Leslie Mistry, PhD Clinical Psychologist [facility] [address] [place] [address] [facility], [address] [place] [address] Seqnrckrjcpube signed by Leslie Mistry, PhD at 10/08/2017 [...] | | | | | [place], [place] | | | | | | [address] | | | | | | [phone] | | | | | | | | +--------+ + + + + documented as of this encounter Visit Diagnoses + + | Diagnosis | + + | Morbid obesity (HCC) Morbid obesity | + + | Bipolar affective disorder, remission status unspecified ([facility]) | + + | BMI 60.0-69.9, adult ([facility]) Body Mass Index 60.0-69.9, adult | + + | Anxiety Anxiety state, unspecified | + + documented in this encounter
--- OUTSIDE RECORDS SUMMARY | ~2019-05-23 | XMS | Encounter Summary ---
Demographics + + + | Address | [address] | | | [place] [address] | + + + | Home Phone [...] [place], [place] | | | | | [address] | | + + + + + | Ellie Vang | ECON | Unknown | | + + + + + Care Team Providers + +------+ + | Care Mill Supervisor Name | Role | Phone | [...] | | 2015 | | Preventive at [facility] | MD [address] | | | | | [address] | [place], [place] | | | | | Mailcode: [facility] | [address] | | | | | [facility] | [phone] | | | | | and [address], | | | | | | [address] | | | | | | [place], [place] | | | | | | [address] | | | | | | [phone] | | | +--------+ + + + [...] | | | | | [place], [place] | | | | | | [address] | | | | | | [phone] | | | | | | | | +--------+ + + + + documented as of this encounter Visit Diagnoses Not on filedocumented in this encounter"
--- OUTSIDE RECORDS SUMMARY | ~2019-05-23 | XMS | Encounter Summary ---
Demographics + + + | Address | [address] | | | [place] [address] | + + + | Home Phone [...] [place], [place] | | | | | [address] | | + + + + + | Ellie Vang | ECON | Unknown | | + + + + + Care Team Providers + +------+ + | Care Sap Bobj Developer Name | Role | Phone | [...] | 2017 | Event | [facility] | MD Jodie,PhD 0660 | | | | | Admitting Desk | [address] | | | | | Located on the 9 | [facility] [place] | | | | | floor [address] | [address] | | | | | [address] | [phone] | | | | | [place], [place] | | | | | | [address] | Jason Balbuena | | | | | | MD Twin [address] | | | | | | [address] | | | | | | [place], [place] | | | | | | [address] | | | | | | [phone] | | | | | | | [...] | | 2018 | Visit | | [address] | | | | | | [place], [place] | | | | | | [address] | | | | | | [phone] | | | | | | | [...] INTRAPROCEDURE PRN, Starting Thu | | 18 11:36 | | | [...]
--- OUTSIDE RECORDS SUMMARY | ~2019-05-23 | XMS | Encounter Summary ---
Demographics + + + | Address | [address] | | | [place] [address] | + + + | Home Phone [...] + | Katalina Padilla | ECON | [address] | | | | | [place], [place] | | | | | [address] | | + + + + + | Ellie Vang | ECON | Unknown | | + + + + + Care Team Providers + +------+ + | Care Optimization Specialist Name | Role | Phone | + +------+ + | Fadi Goodrich DO | PCP | | + +------+ + Encounter Details +--------+ + + + + | Date | Type | Department | Care Team | Description | +--------+ + + + + | 10/27/ | Abstract | Digestive Health | Clinic, Surgery | | | 2018 | | [place] at [facility] [address] | | | | | | [address] | | | | | | Mailcode: [place] | | | | | | [facility] Health and | | | | | | [facility] 2 | | | | | | [place], [place] | | | | | | [address] | | | | | | [phone] | | | +--------+ + + + [...] | | | | | [place], [place] | | | | | | [address] | | | | | | [phone] | | | | | | | | +--------+ + + + + documented as of this encounter Visit Diagnoses Not on filedocumented in this encounter"
--- OUTSIDE RECORDS SUMMARY | ~2019-05-23 | XMS | Encounter Summary ---
Demographics + + + | Address | [address] | | | [place] [address] | + + + | Home Phone [...] [place], [place] | | | | | [address] | | + + + + + | Ellie Vang | ECON | Unknown | | + + + + + Care Team Providers + +------+ + | Care Seed Sales Manager Name | Role | Phone [...] Diabetes & | Morbid | Kathy Feliciano, FLAG SIGNALMAN | [address] | | | | Metabolism | obesity | [address] | [address] | | | | | ([facility]) | [address], [address] | | | | | Procedures | [address] | Physician's | | | | | CONSULT TO | [place], [place] | Pavilion | | | | | ENDO | [address] | Physician's | | | | | [address] | Phone: | Pavilion | | | | | [address] | [phone] | [place], [place] | | | | | | Fax: | [address] | | | | | | [phone] | Phone: | | | | | | | [phone] | | | | | | | Fax: | | | | | | | [phone] | +--------+--------+ + + + + Encounter Details +--------+ + + + + | Date | Type | Department | Care Team | Description | +--------+ + + + + | 11/15/ | Documentati | Digestive Health | Kathy Feldman, | | | 2012 | on | Center at [facility] [address] | FLAG SIGNALMAN [address] | | | | | [address] | [facility] 350 | | | | | Mailcode: Center | [place], [place] | | | | | [facility] Health and | [address] | | | | | [facility] 2 | [phone] | | | | | [place], [place] | | | | | | [address] | | | | | | [phone] | | | +--------+ + + + [...] [place] | | | | | | [address] | | | | | | [phone] | | | | | | | | +--------+ + + + + documented as of this encounter Visit Diagnoses + + | Diagnosis | + + | Morbid obesity (HCC) - Primary Morbid obesity | + + documented in this encounter"
--- OUTSIDE RECORDS SUMMARY | ~2019-05-23 | XMS | Encounter Summary ---
Demographics + + + | Address | [address] | | | [place] [address] | + + + | Home Phone [...] [place], [place] | | | | | [address] | | + + + + + | Ellie Vang | ECON | Unknown | | + + + + + Care Team Providers + +------+ + | Care Maintenance Engineer Oil Field Name | Role | Phone | + [...] | | | [address] | [place], [place] | | | | | Mailcode: [place] | [address] | | | | | [facility] Health and | | | | | | [facility] 2 | | | | | | [place], [place] | | | | | | [address] | | | | | | | [...] | | | | | [place], [place] | | | | | | [address] | | | | | | [phone] | | | | | | | | +--------+ + + + + documented as of this encounter Visit Diagnoses Not on filedocumented in this encounter"
--- OUTSIDE RECORDS SUMMARY | ~2019-05-23 | XMS | Encounter Summary ---
Demographics + + + | Address | [address] | | | [place] [address] | + + + | Home Phone [...] + | Katalina Padilla | ECON | [address] | | | | | [place], [place] | | | | | [address] | | + + + + + | Ellie Vang | ECON | Unknown | | + + + + + Care Team Providers + +------+ + | Care Supervisor Of Operations Name | Role | Phone | + [...] + + | 06/23/ | Hospital | [facility] [address] | Kaleb Wilcox MD | | | 2017 | Encounter | [address] | [address] | | | | | [address] | [place], [place] | | | | | [place], | [address] | | | | | [place] [address] | [phone] | | | | | [phone] | | | +--------+ + + + [...] hours or on weekends and holiday Hospital Scheduling Analyst toll free [phone]. [phone] and have the GI doctor loss prevention operations manager paged. The provider who performed your procedure is: Dr. Wilcox Results of your EGD: Dilation performed. You may resume your regular diet. Follow up Appointments with: Follow up with Dr. Pandey in bariatric surgery, thank you for choosing [facility]! Your primary care provider or referring provider [...] | | 0 | | | | [id number] | mouth two times | | | [...] 2:35 PM PST PRE PROCEDURE NOTE: MR# [id number] Subjective: Elzbieta Cristina is a 43 y.o. [...] | | | | | [place], [place] | | | | | | [address] | | | | | | [phone] | | | | | | | [...] -----+ | MRN: | [facility] | | [id number] Date: 06/23/2018Patient Name: Elzbieta Curtis #: | ENDOSCOP Y | | [id number] of : 1975CSN: [id number] Type: | | | AmbulatoryRoom: SORProcedure: Upper GI | | | endoscopyIndications: Nausea with vomiting, Status post | | | Ylgk-zh-KFzaipbdfo: KALEB WILCOX MD (Doctor)JOSE | | | NASIMA, Blocking Machine Operator Second | | | (Blocking Machine Operator Second)Referring MD: DANIELLE GARCÍAPRemateusz | | | Provider: [...] | | | The Olympus [id number] Gastroscope #[id number] was | | | introduced through the [...] endoscope without resistance. The | | | tlkdd-jk-ctzzxkl limb was characterized by healthy appearing | [...] Initiated On: | | | 06/23/2018 3:58 [facility] Letter to: FADI GOODRICH DO | [...] + + + | NKECHI AMES | [address] | [place], [place] | | | JUSTINE DAWN OF CARE | [address] | [address] | | | TESTS | | | [...] Thu06/23/18 at 1532, | | | Until [facility] 06/24/18 at 0027, | | | hypopnea | | + +---+ | | | + +---+ | ondansetron (ZOFRAN) injection | | | 4 mg 4 mg, intravenous, | | | POSTPROCEDURE PRN, 1 dose, | | | Starting Thu06/23/18 at 1532, | | | Until [facility] 06/24/18 at 0027, | | | [...]
--- OUTSIDE RECORDS SUMMARY | ~2019-05-23 | XMS | Encounter Summary ---
Demographics + + + | Address | [address] | | | [place] [address] | + + + | Home Phone [...] [place], [place] | | | | | [address] | | + + + + + | Ellie Vang | ECON | Unknown | | + + + + + Care Team Providers + +------+ + | Care Glass Smoother Name | Role | Phone | + +------+ + | Fadi Goodrich DO | PCP | | + +------+ + Encounter Details +--------+ + + + + | Date | Type | Department | Care Team | Description | +--------+ + + + + | 07/06/ | Abstract | Digestive Health | Clinic, Surgery | | | 2016 | | [place] at [facility] [address] | | | | | | [address] | | | | | | Mailcode: [place] | | | | | | [facility] Health and | | | | | | [facility] 2 | | | | | | [place], [place] | | | | | | [address] | | | | | | [phone] | | | +--------+ + + + [...] | | | | | [place], [place] | | | | | | [address] | | | | | | [phone] | | | | | | | | +--------+ + + + + documented as of this encounter Visit Diagnoses Not on filedocumented in this encounter"
--- OUTSIDE RECORDS SUMMARY | ~2019-05-23 | XMS | Encounter Summary ---
Demographics + + + | Address | [address] | | | [place] [address] | + + + | Home Phone [...] [place], [place] | | | | | [address] | | + + + + + | Ellie Vang | ECON | Unknown | | + + + + + Care Team Providers + +------+ + | Care Design Supervisor Name | Role | Phone | + +------+ + | Fadi Goodrich DO | PCP | | + +------+ + Encounter Details +--------+------+ + + + | Date | Type | Department | Care Team | Description | +--------+------+ + + + | 08/28/ | Lab | Laboratory at [facility] | | Type 2 diabetes | | 2015 | | [address] | | mellitus (HCC) | | | | [place], [place] | | | | | | [address] | | | | | | [phone] | | | +--------+------+ + + + [...] | | 2019 | Visit | | [address] | | | | | | [place], [place] | | | | | | [address] | | | | | | [phone] | | | | | | | [...] | + + + + + | [facility] | [address] | [place] [address] | | | LYDIA RANGEL | CLARENCE [...] + | [facility] [employer] | [address] | [place] [address] | | | SERVICES, SPECIAL | PARK [...]
--- OUTSIDE RECORDS SUMMARY | ~2019-05-23 | XMS | Encounter Summary ---
Demographics + + + | Address | [address] | | | [place] [address] | + + + | Home Phone [...] [place], [place] | | | | | [address] | | + + + + + | Ellie Vang | ECON | Unknown | | + + + + + Care Team Providers + +------+ + | Care Billing Specialist Name | Role | Phone | [...] | | | | | obstruction | [place], | Mailcode: | | | | | or gangrene | [place] | [facility] for | | | | | Abdominal | [address] | Health and | | | | | pain, | Phone: | Healing, | | | | | unspecified | | Building 2 | | | | | abdominal | Fax: | [place], [place] | | | | | location | [phone] | [address] | | | | | Procedures | | Phone: | | | | | CONSULT TO | | [phone] | | | | | SURGERY - | | Fax: | | | | | GENERAL | | [phone] | + +--------+ + + + + [...] | | [address] | Ave [place], [place] | | | | | Mailcode: [place] | [address] | | | | | for Health and | | | | | | [facility], [facility] 2 | | | | | | [facility] [place] | | | | | | [address] | | | | | | | [...] | | | | | [place], [place] | | | | | | [address] | | | | | | [phone] | | | | | | | [...]
--- OUTSIDE RECORDS SUMMARY | ~2019-05-23 | XMS | Encounter Summary ---
Demographics + + + | Address | [address] | | | [place] [address] | + + + | Home Phone [...] [place], [place] | | | | | [address] | | + + + + + | Ellie Vang | ECON | Unknown | | + + + + + Care Team Providers + +------+ + | Care Craft Coordinator Name | Role | Phone | [...] | | | | | | | [facility] | | | | | | | Health and | | | | | | | Healing, | | | | | | | Building 2 | | | | | | | [place], [place] | | | | | | | [address] | | | | | | | Phone: | | | | | | | [phone] | | | | | | | Fax: | | | | | | | [phone] | +--------+--------+ + + + + Encounter [...] | | | | Mailcode: Center | [place], [place] | ([facility]) | | | | for Health and | [address] | | | | | [facility], [facility] 2 | | | | | | [place], [place] | | | | | | [address] | | | | | | [phone] | | | +--------+---------+ + + + [...] of Visit: 10:06 to 10:32 (26 minutes nmjm-wr-bwvi with patient & friend) SUBJECTIVE: Is surprised she has gained weight; is disappointed. Still following her usual meal plan. H as d/c'd diet soda. Still struggling w/ eating out of boredom - choosing 100 kcal snacks but having ~3 of them at a time. Not as much emotional eating lately. Has been keeping food log s (on paper) - avg 0445-2081 kcal/d. Trying to increase activity. B: Atkins [...] provided. [address]ga [address], [place] Pager [phone] documented in this en counter Plan of [...] | | | | | [place], [place] | | | | | | [address] | | | | | | [phone] | | | | | | | | +--------+ + + + + documented as of this encounter Procedures + +--------+ + + + | Procedure Name | Priori | Date/Time | Associated Diagnosis | Comments | | | ty | | | | + +--------+ + + + | ND MNT RE-ASSESSMNT | Routin | 06/16/2013 | Morbid obesity | | | X15MIN | e | 1:32 PM | ([facility]) Type 2 | | | | | PST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 | | | | | | ([facility]) | | + +--------+ + + + documented in this encounter Visit Diagnoses + + | Diagnosis | + + | Morbid obesity ([facility]) - Primary Morbid obesity | + + | Type 2 diabetes mellitus ([facility]) Type II or unspecified type diabetes mellitus without | | mention of complication, not stated as uncontrolled | + + documented in this encounter
--- OUTSIDE RECORDS SUMMARY | ~2019-05-23 | XMS | Encounter Summary ---
Demographics + + + | Address | [address] | | | [place] [address] | + + + | Home Phone [...] [place], [place] | | | | | [address] | | + + + + + | Ellie Vang | ECON | Unknown | | + + + + + Care Team Providers + +------+ + | Care Telephone Order Clerk Room Service Name | Role | Phone | + [...] | | | without | [place] | [address] | | | | | mention of | | Phone: | | | | | obstruction | | [phone] | | | | | or gangrene | | Fax: | | | | | | | [phone] | +--------+--------+ + + + + Encounter [...] | [facility] [address] | [address] | Hernia | | | | [address] | [place], [place] | | | | | Mailcode: [address] | [address] | | | | | [facility] | [phone] | | | | | [address] [place], [place] | | | | | | [address] | | | | | | [phone] | | | +--------+---------+ + + + [...] are still in, And wound is healed. Caroline removed. Drainage is serous, very slight sanguinous. No eviden ce of deep subcutaneous infection. Abdominal wall currently intact. Drain site OK. Assessment/Plan: Satisfactory course following primary repair of incarcerated umbilical he rnia. Pt. Wants to obtain care, including drain removal and diabetic care in [place], so I have referred her to her [...] | | 2018 | Visit | | [address] | | | | | | [place], [place] | | | | | | [address] | | | | | | [phone] | | | | | | | [...]
--- OUTSIDE RECORDS SUMMARY | ~2019-05-23 | XMS | Encounter Summary ---
Demographics + + + | Address | [address] | | | [place] [address] | + + + | Home Phone [...] [place], [place] | | | | | [address] | | + + + + + | Ellie Vang | ECON | Unknown | | + + + + + Care Team Providers + +------+ + | Care Sexer Name | Role | Phone | + [...] | | | | | | [place] [address] | | | +--------+ + + + [...] [place] | | | | | | [address] | | | | | | [phone] | | | | | | | | +--------+ + + + + documented as of this encounter Visit Diagnoses Not on filedocumented in this encounter"
--- OUTSIDE RECORDS SUMMARY | ~2019-05-23 | XMS | Encounter Summary ---
Demographics + + + | Address | [address] | | | [place] [address] | + + + | Home Phone [...] [place], [place] | | | | | [address] | | + + + + + | Ellie Vang | ECON | Unknown | | + + + + + Care Team Providers + +------+ + | Care Porter Head Name | Role | Phone | + [...] from | | 2016 | | at [facility] [address] | [employer] [address] [facility] | | | | [place] Mailcode: | Ave [place], [place] | | | | | [address] | [address] | | | | | Health and Healing, | [phone] | | | | | | | | | | | [place], [place] | | | | | | [address] | | | | | | [phone] | | | +--------+ + + + [...] | | | | | [place] | | | | | | [address] | | | | | | [phone] | | | | | | | | +--------+ + + + + documented as of this encounter Visit Diagnoses Not on filedocumented in this encounter"
--- OUTSIDE RECORDS SUMMARY | ~2019-05-23 | XMS | Encounter Summary ---
Demographics + + + | Address | [address] | | | [place] [address] | + + + | Home Phone [...] [place], [place] | | | | | [address] | | + + + + + | Ellie Vang | ECON | Unknown | | + + + + + Care Team Providers + +------+ + | Care Objective C Developer Name | Role | Phone | [...] | 2012 | | Center at [facility] [address] | MD [address] | | | | | [address] | [facility] | | | | | Mailcode: Center | [place], [place] | | | | | [facility] Health and | [address] | | | | | [facility], [facility] 2 | [phone] | | | | | [place], [place] | | | | | | [address] | | | | | | [phone] | | | +--------+ + + + [...] | | | | [place] [facility] [place] | | | | | | [address] | | | | | | [phone] | | | | | | | | +--------+ + + + + documented as of this encounter Visit Diagnoses Not on filedocumented in this encounter"
--- OUTSIDE RECORDS SUMMARY | ~2019-05-23 | XMS | Encounter Summary ---
Demographics + + + | Address | [address] | | | [place] [address] | + + + | Home Phone [...] [place], [place] | | | | | [address] | | + + + + + | Ellie Vang | ECON | Unknown | | + + + + + Care Team Providers + +------+ + | Care Pants Closer Name | Role | Phone | + [...] | | | [address] | [place], [place] | | | | | Mailcode: [address] | [address] | | | | | [facility] | [phone] | | | | | [address] [place], [place] | | | | | | [address] | | | | | | [phone] | | | +--------+---------+ + + + [...] Dr. Andie Brian Incisional hernia repair 02/2015 [facility]/ Dr. Cantu PHYSICAL EXAMINATION: BP 133/63 | [...] GENERAL SURGERY AT [facility] [address] [facility] Mailcode: [address] [place] [address] documented in this encounter Plan [...] [place] | | | | | | [address] | | | | | | [phone] | | | | | | | | +--------+ + + + + documented as of this encounter Visit Diagnoses + + | Diagnosis | + + | Incarcerated incisional hernia - Primary Incisional hernia with obstruction | + + documented in this encounter"
--- OUTSIDE RECORDS SUMMARY | ~2019-05-23 | XMS | Clinical Summary ---
Demographics + + + | Address | [address] | | | [place] [address] | + + + | Home Phone [...] Author + + + | Author | [facility] | + + + | Organization | [facility] | + + + [...] [place], [place] | | | | | [address] | | + + + + + | Ellie Vang | ECON | Unknown | | + + + + + Care Team Providers + +------+ + | Care Milk Collector Name | Role | Phone | + +------+ + | Kenyatta Hylton MD | PCP | | + +------+ + Source Comments NKECHI is fully live on both EpicCare Ambulatory and EpicCare InPatient.[facility] [...] 0 | | | Activ | | [id number] | mouth two times | | | [...] + + + + | 03/02/ | Tacking Machine Operator | Surgery | Keren Allen, | | [...] | | 2019 | Visit | | [address] | | | | | | [place], [place] | | | | | | [address] | | | | | | [phone] | | | | | | | [...] - | | | | | | /[id number] | | [id number]: Qty: 1 on | | | | | | 525 | | 03/01/2018 by Ion Pandey | | | | | | | | MD Vinicius at [facility] | | | | | [...] - | | | | | | /[id number] | | [id number]: Qty: 1 on | | | | | | 173 | | 03/01/2018 by Ion Pandey | | | | | | | | MD Vinicius at [facility] | | | | | [...] SERUM | e | 2:41 PM | Franyd-en-Y gastric | procedure are in the | [...] [facility] | [address] | [place], [place] | | | JUSTINE DAWN OF JAKY | [facility] | [address] | | | TESTS | | | [...] | + + + + + | [facility] | [address] | [place] [address] | | | SERVICES, CORE | CLARENCE [...] | + + + + + | [facility] | [address] | [place] [address] | | | SERVICES, CORE | CLARENCE [...] | + + + + + | [facility] | [address] | [place] [address] | | | SERVICES, CORE | CLARENCE [...] [facility] | [address] | [place] [address] | | | SERVICES, CORE | CLARENCE [...] 5-6 weeks | | | 850 - 88803 6-7 weeks | | | 4000 - [phone] 7-12 weeks | | | 71806 - 028315 12-16 weeks | | | 00673 - 052224 16-29 | | | weeks 1400 - 82642 | | | 29-41 weeks 940 - 33738 | | | This test has not been approved for use as a tumor marker in | | | males or females. | | + + + + + + + + | Performing | Address | City/State/Zipcode | Phone Number | | Organization | | | | + + + + + | [facility] | [address] | [place] [address] | | | SERVICES, CORE | [address] | | | + + + + + ED INFORMATION EXCHANGE (05/13/2019 5:14 PM PDT) + + | Specimen | + + | | + + + + + | Narrative | Performed At | + + + | COLLECTIVE?NOTIFICATION?05/13/2019 17:13?DYLAN ROMERO?MRN: | COLLECTIVE | | [id number] Criteria Met Has Guidelines PDMP Security | MEDICAL | | and Safety No recent Security Events currently on file ED Care | TECHNOLOGIES | | Guidelines from [facility] Last Updated: 12/06/18 9:53 AM | | | Care Coordination: Receiving mental health services with | | | [employer].? Please contact [employer] for mental health concerns.? | | | Saima/Toni Centeno: [phone]? Kishan: [phone].? | | | These are guidelines and the provider should exercise clinical | | | judgment when providing care. Care History Medical/Surgical | | | 05/11/19 12:00 AM [facility] Patient is | | | currently established with [facility]. If patient is seen in | | | the ED during business hours. Please contact CHWs at [facility] | | | Clinic. Care Recommendation: [...] care. 08/23/18 12:00 AM | | | [facility] PATIENT HAS A PCP APT TO ESTABLISH [...] SUDOGEST 30 MG TABLET 5 BERNARDO MARTIN, OYSTER BED WORKER 0 | | | 2019-03-30 SUDOGEST 30 MG TABLET 30 BERNARDO MARTIN, OYSTER BED WORKER 0 | | | 2019-03-20 ALPRAZOLAM 1 [...] (12 mo.) Facility Visits | | | [facility] 1 [facility] 1 | | | [facility] 2 Total 4 Note: Visits indicate total | | | known visits. Recent Emergency Department Visit Summary Date | | | Facility City State Type Diagnoses or Chief Complaint May 13, 2019 | | | [facility] [place] Emergency | | | 10,800. [...] | | infrc w/o resid deficits Other terminal operations manager (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 | | | Allergy status to penicillin December 03, 2018 Neftali Rivera | | | [facility] [place] Emergency RIGHT LEG PAIN DUE TO FALL | | | Strain of unsp musc/tend at lower leg level, right leg, init Jul | | | 2018 [facility] [place] Emergency Other alf | | | (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 Upper abdominal pain, unspecified | | | Bariatric surgery status Allergy status to oth drug/meds/biol | | | subst status Noninfective gastroenteritis and colitis, | | | unspecified Obesity, unspecified Anxiety disorder, | | | unspecified snf (current) use of aspirin Allergy | | | status to penicillin Personal history of pulmonary embolism | | | Recent Inpatient Visit Summary No recorded inpatient visits. | | | Care Team Provider Specialty Phone Fax Service Dates Najmaraymond, | | | Rob Waiter/Corporate Claims Examiner Mar 27, 2018 - | | | Current Bernard Hylton MD Internal Medicine: Pulmonary Disease | | | Aug 23, 2018 - Current [email or web address] This patient has | | | registered at the [facility] [place] Emergency | | | Department For more information visit: | | | [email or web address] | | | [email or web address] PLEASE NOTE: 1. Any care recommendations [...] or completeness of information provided. ? 2019 4tiitoo | | | [employer] - wwwSynthace | | + + + + + | Procedure Note | + + | Service Account, Rtf Results Inbound - 05/13/2019 5:16 PM PDT Formatting of this | | note might be different from the original.COLLECTIVE?NOTIFICATION?05/13/2019 | | 17:13?DYLAN ROMERO? Met Has Guidelines PDMPSecurity and | | SafetyNo recent Security Events currently on fileED Care Guidelines from [employer] - | | [place] Updated: 12/06/18 9:53 AM Care Coordination:Receiving mental health | | services with [employer].? Please contact [employer] for mental health concerns.? | | Saima/Toni Centeno: [phone]? Kishan: [phone].?These are guidelines | | and the provider should exercise clinical judgment when providing care.Care | | HistoryMedical/Ospgvjbe89/16/19 12:00 AM [facility] Patient is currently | | established with [facility]. If patient is seen in the ED during business hours. | | Please contact CHWs at [facility].Care Recommendation:This patient has had 5 or [...] clinical judgment when providing care.08/23/18 12:00 AM [facility] | | Hospital PATIENT HAS A [...] SUDOGEST 30 MG TABLET 5 BERNARDO MARTIN, OYSTER BED WORKER 0 2019-03-30 SUDOGEST 30 MG TABLET 30 | | BERNARDO MARTIN, OYSTER BED WORKER 0 2019-03-20 ALPRAZOLAM 1 MG TABLET 60 [...] Visits Neftali Rivera | | Health 1 [facility] 1 [facility] 2 Total 4 Note: | | Visits indicate total known visits. Recent Emergency Department Visit SummaryDate | | Facility City State Type Diagnoses or Chief Complaint May 13, 2019 [facility] and | | [facility] [place] Emergency 10,800. A303 May [...] infrc w/o resid deficits | | Other alf (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 Allergy status to penicillin December 03, 2018 | | [facility] [place] Emergency RIGHT LEG PAIN DUE TO FALL Strain of | | unsp musc/tend at lower leg level, right leg, init Aug 22, 2018 [facility] | | [place] Emergency Other terminal operations manager (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 Upper abdominal pain, | | unspecified Bariatric surgery status Allergy status to oth drug/meds/biol subst | | status Noninfective gastroenteritis and colitis, unspecified Obesity, unspecified | | Anxiety disorder, unspecified snf (current) use of aspirin Allergy status | | to penicillin Personal history of pulmonary embolism Recent Inpatient Visit | | SummaryNo recorded inpatient visits. Care TeamProvider Specialty Phone Fax Service Dates | | Rob Tilley Waiter/Corporate Claims Examiner Mar 27, 2018 - Current | | Bernard Hylton MD Internal Medicine: Pulmonary Disease Aug 23, 2018 - Current | | [email or web address] patient has registered at the [facility] [place] | | Emergency Department For more information visit: | | [email or web address] PLEASE | | NOTE: 1. Any care [...] completeness of information | | provided.? 2019 [employer] - wwwSynthace | |[facility] 3 | |Benzos 4 | |Opioids 7 | |Long Acting Opioids 0 | | | | | | | |E.D. Visit Count (12 mo.) | |Facility Visits | |[facility] 1 | |[facility] 1 | |[facility] 2 | |Total 4 | |Note: Visits indicate total known visits. | | | |Recent Emergency Department Visit Summary | |Date Facility City State Type Diagnoses or Chief Complaint | |May 13, 2019 [facility] [place] Emergency | | 10,800. A303 | | | |May 10, 2019 [facility] 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 Emergency | | RIGHT LEG PAIN DUE TO FALL | | Strain of unsp musc/tend at lower leg level, right leg, init | | | |Aug 22, 2018 [facility] [place] Emergency | | Other terminal operations manager (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 | | Upper abdominal pain, unspecified | | Bariatric surgery status | | Allergy status to oth drug/meds/biol subst status | | Noninfective gastroenteritis and colitis, unspecified | | Obesity, unspecified | | Anxiety disorder, unspecified | | snf (current) use of aspirin | | Allergy status to penicillin | | Personal history of pulmonary embolism | | | | | | | |Recent Inpatient Visit Summary | |No recorded inpatient visits. | | | |Care Team | |Provider Specialty Phone Fax Service Dates | |Rob Tilley Waiter/Corporate Claims Examiner Mar 27, 2018 - Current | |Bernard Hylton MD Internal Medicine: Pulmonary Disease Aug 23, 2018 - Current | | | |[email or web address] Portal | |This patient has registered at the [facility] Emergency Departmen t | |For more information visit: [email or web address] | |PLEASE NOTE: | | 1. Any [...] information provided. | | | |? 2019 [employer] - www.PJD Group | + + + + + + + | Performing | Address | City/State/Zipcode | Phone Number | | Organization | | | | + + + + + | [facility] | [address], | [place], [place] | [phone] | | TECHNOLOGIES | [address] | [address] | | + + + + + EGD (04/07/2019 10:53 AM PDT) + + | Specimen | + + | | + + + + + | Narrative | Performed At | + + + | MRN: | NKECHI | | [id number] Date: 04/07/2019Patient Name: Dylan Curtis #: | ENDOSCOPY | | [id number] of : 1975CSN: [id number] Type: | | | AmbulatoryRoom: Endo 5Procedure: Upper GI | | | endoscopyIndications: Generalized abdominal pain, Nausea | | | with vomitingProviders: TAL MCNEIL MD | | | (Doctor), BERNARDO BERNARD RN (Nurse), | | | EREN SLATER (Domestic Cleaner)Referring MD: KEREN Kilpatrick | | | KENNY [...] | | | The Olympus [id number] Endoscope #[id number] | | | was introduced through the [...] + + | Performing | Address | City/State/[facility]ode | Phone Number | [...] Note | + + | Service Account, [employer] Res In Interface - 03/08/2019 3:33 PM [...] | | | | | determined by [facility] | | | | | | Laboratories. See | | | | | | Compliance Statement B: | | | | | | Tout.ProHatch/CSPerformed | | | | | | by mymission2,500 | | | | | | Natalia Parson [facility] | | | | | | [address] | | | | | | [phone].Tout. | | | | | | comIsmael [...] [facility] | [address] | [place], [place] | | | UNIV PTH - INTFC | | [address] | | + + + + + [...] | + + + + + | [facility] | [address] | [place] [address] | | | SERVICES, CORE | CLARENCE [...] | + + + + + | [facility] | [address] | [place] [address] | | | SERVICES, CORE | CLARENCE [...] B: | | | | | | Tout.ProHatch/CSPerformed | | | | | | by mymission2,500 | | | | | | [facility] | | | | | | [address] | | | | | | [phone].Tout. | | | | | | ProHatchIsmael MD, | | | | | | [...] [facility] | [address] | [place], [place] | | | UNIV PTH - INTFC | | [address] | | + + + + + [...] [facility] | | | (YEN NOAH) | mymission2,500 | | REG UNIV | | | SERUM | Natalia Parson, [facility] | | PTH - INTFC | | | | [address] | | | | | | [phone].[employer] Grouplab. | | | | | | comIsmael [...] B: | | | | | | Healthcare Bluebook/CS | | | | + + + + + + + + | Specimen | + + | Blood - Blood | | (substance) | + + + + + + + | Performing | Address | City/State/[facility] Centercode | Phone Number | | Organization | | | | + + + + + | [facility] | [address] | [place], [place] | | | UNIV PTH - INTFC | | [address] | | + + + + + [...] INTFC | | | | determined by [facility] | | | | | | Laboratories. See | | | | | | Compliance Statement B: | | | | | | Tout.ProHatch/CSPerformed | | | | | | by mymission2,500 | | | | | | [place] | | | | | | [address] | | | | | | [phone].Tout. | | | | | | ProHatchIsmael MD, | | | | | | [...] [facility] | [address] | [place], [place] | | | UNIV PTH - INTFC | | [address] | | + + + + + [...] | + + + + + | [facility] | [address] | [place] [address] | | | SERVICES, SPECIAL | CLARENCE [...] | | | | | determined by [facility] | | | | | | Laboratories. See | | | | | | Compliance Statement B: | | | | | | Tout.ProHatch/CSPerformed | | | | | | by mymission2,500 | | | | | | Natalia Parson, [facility] | | | | | | [address] | | | | | | [phone].Tout. | | | | | | com, [...] [facility] | [address] | [place], [place] | | | UNIV PTH - INTFC | | [address] | | + + + + + [...] | + + + + + | [facility] | [address] | [place] [address] | | | LYDIA RANGEL | CLARENCE [...] [facility] | [address] | [place] [address] | | | SERVICES, CORE | PARK [...] | + + + + + | [facility] | [address] | [place] [address] | | | SERVICES, CORE | CLARENCE [...] | + + + + + | [facility] | [address] | [place] [address] | | | SERVICES, CORE | CLARENEC [...] | | | | | determined by [facility] | | | | | | Laboratories. See | | | | | | Compliance Statement B: | | | | | | Tout.com/CSPerformed | | | | | | by [facility],[address] | | | | | | [place] | | | | | | [address] | | | | | | [phone].[employer] Grouplab. | | | | | | comIsmael [...] [facility] | [address] | [place], [place] | | | UNIV PTH - INTFC | | [address] | | + + + + + [...] | | | + +--------+ +--------+-------+---------+--------+ | GUEST SERVICES AGENT MEDICAID | GUEST SERVICES AGENT | xxxxxxxx | | | | Medica [...] | | 1975 | [phone] | [address] [place] | | | mireya | | | 3 (Home) | [address] | + +--------+ +--------+ + + Advance [...]
--- OUTSIDE RECORDS SUMMARY | ~2019-05-23 | XMS | Encounter Summary ---
Demographics + + + | Address | [address] | | | [place] [address] | + + + | Home Phone [...] + | Katalina Padilla | ECON | [address] | | | | | [place], [place] | | | | | [address] | | + + + + + | Ellie Vang | ECON | Unknown | | + + + + + Care Team Providers + +------+ + | Care Soda Tester Name | Role | Phone | + +------+ + | Kenyatta Cardenas MD | PCP | | + +------+ + Encounter Details +--------+ + + + + | Date | Type | Department | Care Team | Description | +--------+ + + + + | 03/01/ | Procedure | Diagnostic Imaging | | | | 2019 | Pass | Services at [facility] | | | | | | [address] | | | | | | Lesly Gutiérrez Mailcode: | | | | | | [address] [facility] | | | | | | [place], [place] | | | | | | [address] | | | | | | [phone] | | | +--------+ + + + [...] | | | | | [place], [place] | | | | | | [address] | | | | | | [phone] | | | | | | | | +--------+ + + + + documented as of this encounter Visit Diagnoses Not on filedocumented in this encounter"
--- OUTSIDE RECORDS SUMMARY | ~2019-05-23 | XMS | Encounter Summary ---
Demographics + + + | Address | [address] | | | [place] [address] | + + + | Home Phone [...] + | Katalina Padilla | ECON | [address] | | | | | [place], [place] | | | | | [address] | | + + + + + | Ellie Vang | ECON | Unknown | | + + + + + Care Team Providers + +------+ + | Care Field Operations Farm Manager Name | Role | Phone | [...] | | | [address] | [place], [place] | Dx); History of | | | | Mailcode: Center | [address] | Frandy-en-Y gastric | | | | for Health and | | bypass | | | | [facility] 2 | | | | | | [place], [place] | | | | | | [address] | | | | | | [phone] | | | +--------+---------+ + + + [...] to the healing stomach. There are also termite treater complications of poor wound healing and gastric u lcers. These ulcers are started by smoking or using other nicotine products (vapor cigarett es etc). Gastric bypass patients should also avoid NSAIDS(ibuprofen, advil, motrin, naprosyn/naproxe n/aleve) to prevent gastric/marginal ulcers. Please visit with our Concrete Products Machine Operator (RD) for instructions about your Bariatric diet, assistance with calorie counts, tips and tricks for working with your diet restrictions, an d recipes after bariatric surgery. Daily yogurt; even just 1 tablespoon twice a day will provide enough probiotics to optimize digestion. Try to use a high-quality, probiotic-dense yogurt (eg Zaria's, [place]oneyfield, Lif eway Kefir, Retirement Officer Duke's Japanese Yogurt). Remember to chew your food well, [...] protein daily, and 64 oz water daily. Diabetic Educator just changed diet to he lp her [...] by communicating with her mother - Follow Diabetic Educator recommendations to help with nausea (decrease volume, [...] Anisa Dillon MD PGY-1, Red Surgery Pager: [phone] documented in this encounter Plan of Treatment [...] [place] | | | | | | [address] | | | | | | [phone] | | | | | | | [...]
--- OUTSIDE RECORDS SUMMARY | ~2019-05-23 | XMS | Encounter Summary ---
Demographics + + + | Address | [address] | | | [place] [address] | + + + | Home Phone [...] Providers + +------+ + | Care Press Clippings Cutter And Paster Name | Role | Phone | [...] from Patient; | | 2017 | | [place] [address] | MD [address] | Postoperative | | | | Ave Mailcode: CH[address]S | [place], [place] | infection | | | | [facility] | [address] | | | | | and Healing, | [phone] | | | | | [place] [address] [facility] | | | | | | [place], [place] | | | | | | [address] | | | | | | [phone] | | | +--------+ + + + [...] | | | | | [place], [place] | | | | | | [address] | | | | | | [phone] | | | | | | | | +--------+ + + + + documented as of this encounter Visit Diagnoses Not on filedocumented in this encounter"
--- OUTSIDE RECORDS SUMMARY | ~2019-05-23 | XMS | Encounter Summary ---
Demographics + + + | Address | [address] | | | [place] [address] | + + + | Home Phone [...] + | Katalina Padilla | ECON | [address] | | | | | [place], [place] | | | | | [address] | | + + + + + | Ellie Vang | ECON | Unknown | | + + + + + Care Team Providers + +------+ + | Care Teacher Adult Education Name | Role | Phone | [...] | | | | | | [place] [address] | | | +--------+ + + + [...] | 2019 | Visit | | [address] | | | | | | [place] [facility] [place] | | | | | | [address] | | | | | | [phone] | | | | | | | | +--------+ + + + + documented as of this encounter Visit Diagnoses Not on filedocumented in this encounter"
--- OUTSIDE RECORDS SUMMARY | ~2019-05-23 | XMS | Encounter Summary ---
Demographics + + + | Address | [address] | | | [place] [address] | + + + | Home Phone [...] [place], [place] | | | | | [address] | | + + + + + | Ellie Vang | ECON | Unknown | | + + + + + Care Team Providers + +------+ + | Care Hr Internship Name | Role | Phone | + +------+ + | Kenyatta Cardenas MD | PCP | | + +------+ + Encounter Details +--------+ + + + + | Date | Type | Department | Care Team | Description | +--------+ + + + + | 03/22/ | Hospital | Radiology/Imaging | Keren Allen, | | | 2019 | Encounter | Lab at [facility] [address] | [facility] [address] | | | | | [address] [place] Mailcode: | [place], [place] | | | | | [address] [facility] | [address] | | | | | Health and Healing, | [phone] | | | | | [address] | | | | | | Floor [facility] [place] | | | | | | [address] | | | | | | [phone] | | | +--------+ + + + [...] | | 0 | | | | [id number]&[id number] | mouth two times | | | [...] 2018 | Visit | | [address] | | | | | | [place], [place] | | | | | | [address] | | | | | | [phone] | | | | | | | | +--------+ + + + + documented as of this encounter Procedures + +--------+ + + + | Procedure Name | Priori | Date/Time | Associated Diagnosis | Comments | | | ty | | | | + +--------+ + + + | X-RAY UGI WO RAVINDER | Routin | 03/22/2019 | History of [...] Note | + + | Service Account, PhotoMania Res In Interface - 03/22/2019 1:04 PM [...]
--- OUTSIDE RECORDS SUMMARY | ~2019-05-23 | XMS | Encounter Summary ---
Demographics + + + | Address | [address] | | | [place] [address] | + + + | Home Phone [...] [place], [place] | | | | | [address] | | + + + + + | Ellie Vang | ECON | Unknown | | + + + + + Care Team Providers + +------+ + | Care Insurance Territory Manager Name | Role | Phone | [...] | | 2019 | | Preventive at [facility] | [address] | (PHENTERMINE 37.5 mg | | | | [address] | [place], [place] | ) | | | | Mailcode: LATRELL | [address] | | | | | [facility] | [phone] | | | | | and [place], | | | | | | [address] | | | | | | [place], [place] | | | | | | [address] | | | | | | [phone] | | | +--------+--------+ + + + [...] | | | | | [place], [place] | | | | | | [address] | | | | | | [phone] | | | | | | | | +--------+ + + + + documented as of this encounter Visit Diagnoses Not on filedocumented in this encounter"
--- OUTSIDE RECORDS SUMMARY | ~2019-05-23 | XMS | Encounter Summary ---
Demographics + + + | Address | [address] | | | [place] [address] | + + + | Home Phone [...] + | Katalina Padilla | ECON | [address] | | | | | [place], [place] | | | | | [address] | | + + + + + | Ellie Vang | ECON | Unknown | | + + + + + Care Team Providers + +------+ + | Care Cable Rigger Name | Role | Phone | [...] | | | | | Ventral | [address] | [id number] | | | | | hernia | Phone: | [place] | | | | | without | [phone] | [address] | | | | | obstruction | Fax: | [place], | | | | | or gangrene | [phone] | [place] [address] | | | | | Mixed | | Phone: | | | | | hyperlipidem | | [phone] | | | | | ia Diabetes | | Fax: | | | | | mellitus | | [phone] | | | | | type 2 [...] | | | | | | | [place] UPPER GI | | | | | | | ENDOSCOPY,BI | | | | | | | OPSY [place] | | | | | | | [...] | | | | Mailcode: Center | [address] | Ventral hernia | | | | for Health and | [phone] | without obstruction | | | | Healing, Building [address] | | or gangrene; Mixed | | | | [place], [place] | | hyperlipidemia; | | | | [address] | | 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[phone] | | type 2 without | | [...] to POC and will call or send [facility] message if any issues. documented in this [...] tongue once daily., Disp: , Rfl: CALCIUM CRB&AVU-A9-TJQ13-GENIS ORAL, Take 2 tablets by mouth two [...] index of 70 and over in adult ([facility]) Myalgia and myositis Nausea Neck pain Numbness Osteoarthritis of knee Palpitations Pneumonia Shortness of breath Staphylococcal infection Stroke (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 She has 2 grandchildren (age 4 and 7) who live with her daughter and son-in-law Her boyfriend lives in [place] HFpEF, DM2, HTN, Sleep Apnea (unable to [...] program here and refer her to our nursing informatics specialist who also has expertise in physical [...] and documenting after this visit. Ronna SANTOSP WOOD FURNITURE ASSEMBLER Bariatric Surgery Nurse Practitioner [facility] | [address] | [place], [place] | [address] | documented in this e ncounter Plan [...] | | | | | [place], [place] | | | | | | [address] | | | | | | [phone] | | | | | | | | +--------+ + + + + documented as of this encounter Results X-RAY MIRIAM CASTELLON (06/07/2018 9:47 AM PST) + + | Specimen | + + | | + + + + + | Narrative | Performed At | + + + | EXAM: Esophagram with medical sonographer radiograph HISTORY: RYGB 03/01/2018, | [facility] | | vomiting/pain ever since COMPARISON: 04/27/2018 CT TECHNIQUE: | RADIOLOGY VOICE | | Organ Pipe Finisher radiograph was performed. Single contrast exam of the esophagus, | RECOGNITION 2 | | gastric pouch, and gastrojejunostomy in upright positioning. | | | Radiation dose reduction technique was maximized where appropriate | | | using pulsed fluoroscopy and fluoro-store images. Fluoro Time 57 | | | second(s) FINDINGS: Organ Pipe Finisher shows stone in the upper pole of [...] AM PST EXAM: Esophagram | | with medical sonographer radiograph HISTORY: RYGB 03/01/2018, vomiting/pain ever since COMPARISON: | | 04/27/2018 CT TECHNIQUE: Organ Pipe Finisher radiograph was performed. Single contrast exam of the | | esophagus, gastric pouch, and gastrojejunostomy in upright positioning. Radiation dose | | reduction technique was maximized where appropriate using pulsed fluoroscopy and | | fluoro-store images. Fluoro Time 57 second(s) FINDINGS:Organ Pipe Finisher shows stone in the upper | | [...] [facility] | [address] | [place] [address] | | | SERVICESLYDIA | [address] [...] (H)Comment: Hgb A1C | <5.7 % | [facility] | | | A1C | Interpretive | [...] | [facility] | | considered for monitoring reach lift truck driver glycemic control in patients with: | LABORATORY [...] + + + + + | [facility] | [address] | [place] [address] | | | SERVICES, SPECIAL | PARK [...] | | | | | determined by [employer] | | | | | | Laboratories. See | | | | | | Compliance Statement B: | | | | | | [employer]/CSPerformed | | | | | | by [employer] | | | | | | Liliana Martinez [facility],[place] | | | | | | [address] | | | | | | [phone].[employer]. | | | | | | comIsmael [...] [facility] | [address] | [place], [place] | | | [facility] | | [address] | | + + + + + [...] | | | LABORATORY | | | SRI LANKAN | | | SERVICES, | | | [...] + + + + + | [facility] | [address] | [place] [address] | | | SERVICES, CORE | PARK [...] [facility] | [address] | [place] [address] | | | SERVICES, CORE | CLARENCE [...] + + + + + | [facility] | [address] | [place] [address] | | | SERVICES, CORE | CLARENCE [...] [facility] | [address] | [place] [address] | | | SERVICES, CORE | PARK [...] [facility] | [address] | [place] [address] | | | SERVICES, CORE | PARK [...] NKECHI ROBERTS | [address] | [place] [address] | | | SERVICES, CORE | PARK [...]
--- OUTSIDE RECORDS SUMMARY | ~2019-05-23 | XMS | Encounter Summary ---
Demographics + + + | Address | [address] | | | [place] [address] | + + + | Home Phone [...] [place], [place] | | | | | [address] | | + + + + + | Ellie Vang | ECON | Unknown | | + + + + + Care Team Providers + +------+ + | Care Fiberglass Tube Molder Name | Role | Phone | [...] Lesly | | | | | Mailcode: [place] | [place], [place] | | | | | [facility] and | [address] | | | | | [facility] | [phone] | | | | | [place], [place] | | | | | | [address] | | | | | | [phone] | | | +--------+ + + + [...] | | | | | [place] [facility] [place] | | | | | | [address] | | | | | | [phone] | | | | | | | | +--------+ + + + + documented as of this encounter Visit Diagnoses Not on filedocumented in this encounter"
--- OUTSIDE RECORDS SUMMARY | ~2019-05-23 | XMS | Encounter Summary ---
Demographics + + + | Address | [address] | | | [place] [address] | + + + | Home Phone [...] + | Katalina Padilla | ECON | [address] | | | | | [place], [place] | | | | | [address] | | + + + + + | Ellie Vang | ECON | Unknown | | + + + + + Care Team Providers + +------+ + | Care Patient Appointment Coordinator Name | Role | Phone | [...] [address] | | | | | [place], [place] | [address] | | | 03/[birth year]/ | | [address] | [place], [place] | | | 2014 | | [phone] | [address] | | | | | | [phone] | | | | | | | [...] port site who was transferre d to [facility] for concern of an incarcerated hernia. On [...] mouth once daily. , Historical Med CALCIUM CRB&FBU-R8-NLR45-GENIS ORAL Take 1 tablet by mouth two [...] 10:40 AM Randell Franks Cardiology Preventive at [facility] [phone] Cardiology 04/09/2015 1:00 PM Egs Ppv Tra Trauma Emergency General Surgery at [facility] [phone] TRAUMA CENTE Outstanding labs/studies: None Discharging Physician: GABO LANGSTON MD Attending Physician: Dr. Cantu PCP: Fadi Goodrich DO Signed: GABO LANGSTON MD Pager #[phone] Surgical Hand Alterations Tailor [facility] Associated attestation - Tye Carrillo DO - 03/12/2015 9:12 AM PDTAttending: I discussed this patient with the resident and agree with the assessment and plan as outlin ed in this note and participated in the planning of care. Tye Carrillo DO, MBA, FACS Division of Trauma, Critical Care & Acute Care Surgery [facility] [phone] documented in this encounter Medications at Time of Discharge + + + +---------+--------+ + | Medication | Sig | Dispensed | Refills | Start | End Date | | | | | | Date | | + + + +---------+--------+ + | CALCIUM | Take 2 tablets by | | 0 | | | | CRB&RFQ-Y4-PAA39-GEN | mouth two times | | | [...] differ ent from the original. [facility] DEPARTMENT OF SURGERY EMERGENCY GENERAL SURGERY Division [...] obesity with known ventral hernias transferred to [facility] for surgical managem ent of ventral hernia, now s/p repair. Post surgical pain: -patient ready for d/c, discussed f/u. Patient lives far away and has other appointments at [facility]. Will attempt to coordinate appointments. Discharge Plan: D/c today GABO LANGSTON MD Pager #[phone] Surgical Hand Alterations Tailor [facility] Nataliia Mendez Salomón rose R - 03/02/2015 1:12 PM PDT [facility] DEPARTMENT OF SURGERY EMERGENCY GENERAL SURGERY Division of Trauma and Critical Care Attending Physician: Shahid Cantu MD Progress Note Note Date: 03/02/2015 Admission Date: 2015 DYLAN ROMERO, Hospital Day #2 40 F PMH morbid obesity (BMI 71 today), DM2, depression, GERD, h/o stroke at age 18, and kn own ventral hernias transferred to [facility] for surgical treatment of suspected incarcerated yuriy [...] obesity with known ventral hernias transferred to [facility] for surgical managem ent of ventral hernia, [...] will be robel ing her home to [place], [place]. CALVIN ROMERO MD PGY-1 Anesthesiology Pager: [phone] [facility] A [address] [place] [address] Karthik Oneill MD - 03/02/2015 8:26 AM [id number] Calvin William Md - 03/01/2015 5:34 PM PDT Brief Post Operative Note: 40 F PMH morbid obesity (BMI 71 today), DM2, depression, GERD, h/o stroke at age 18, and kn own ventral hernias transferred to [facility] for surgical treatment of incarcerated ventral herni [...] control CALVIN ROMERO MD PGY-1 Anesthesiology Pager: [phone] signed by Calvin Romero Md at 03/01/2015 [...] | | 2019 | Visit | | [address] [facility] | | | | | | [place] [facility] [place] | | | | | | [address] | | | | | | [phone] | | | | | | | [...] | | Attending Surgeon: Shahid Cantu MD Band Saw Runner(s): Howie Angeles MD, R5 | | Karthik [...] Critical Care & Acute Care | | SurgeryPhiSHONA PhamK/CARLOSLDD: 03/02/2015 08:25:39DT: 03/02/2015 09:15:57Job #: | | [id number] | | | |Dr. Chris Cantu was present and scrubbed for the entirety of the case. | | | | | | | |Karthik Gonzalez MD | | | |Pursuant to federal Medicare and Medicaid regulations I was present for the entire procedur e. | | | | | | | |Shahid Cantu MD | |Regional Director Of Admissions | |Trauma, Critical Care & Acute Care Surgery | | | | | | | |Shahid Cantu MD | |TBK/YOLANDE | | | | | | /[id number] | + ---+ CAPILLARY BLOOD GLUCOSE (NO [...] - [facility] | [address] | [place], [place] | | | JUSTINE DAWN OF CARE | [address] | [address] | | | TESTS | | | [...] AMES | [address] | [place], [place] | | | JUSTINE DAWN OF JAKY | [address] | [address] | | | TESTS | | | [...] [facility] | [address] | [place], [place] | | | JUSTINE DAWN OF CARE | [address] | [address] | | | TESTS | | | [...] + | [facility] | [address] | [place], [place] | | | JUST[facility] OF CARE | [address] | [address] | | | TESTS | | | [...] AMES | [address] | [place], [place] | | | JUSTINE DAWN OF JAKY | [address] | [address] | | | TESTS | | | [...] [facility] | [address] | [place], [place] | | | JUSTINE DAWN OF CARE | [address] | [address] | | | TESTS | | | [...] | [facility] | [address] | [place] [address] | | | SERVICES, CORE | CLARENCE [...] | [facility] | [address] | [place] [address] | | | SERVICES, CORE | CLARENCE [...] (H) | 60 - 99 mg/dL | [facility] - | | | GLUCOSE, [...] AMES | [address] | [place], [place] | | | [place] POINT OF CARE | [address] | [address] | | | TESTS | | | [...] MARQU[facility] | [address] | [place], [place] | | | JUSTINE DAWN OF CARE | [facility] | [address] | | | TESTS | | | [...] - [facility] | [address] | [place], [place] | | | [place] POINT OF CARE | [address] | [address] | | | TESTS | | | [...] AMES | [address] | [place], [place] | | | [place] POINT OF CARE | [address] | [address] | | | TESTS | | | [...] MAR[facility] | [address] | [place], [place] | | | JUSTINE DAWN OF CARE | [address] | [address] | | | TESTS | | | [...] + | [facility] | [address] | [place] [address] | | | LYDIA RANGEL | CLARENCE [...] [facility] | [address] | [place], [place] | | | HILL, POINT OF CARE | [address] | [address] | | | TESTS | | | [...] AM PDT | | | | | 8/7/15 at 1018, Until 03/02/15 | | | [...] injection 1 dose, | | | Starting [facility] 03/01/15 at 1215, | | | Until [facility] 03/01/15 at 1216 | | + +---+ | | | + +---+ + +-------+ +-------+---+---+ | FLUoxetine (PROZAC) capsule 40 | Given | 03/03/20 | 40 mg | | | | mg 40 mg, oral, DAILY, First | | 15 8:32 | | | | | dose on [facility] 03/01/15 at 0900, Until | | [...] dose on Thu03/01/15 at 0900, | | AM PDT | [...] | | | | | dose on [facility] 03/01/15 at 0900, Until | | [...] | | | | Until Thu03/02/15 at 193, severe | | | | | | [...] | | | | Starting Thu03/02/15 at 1945, | | | | | [...] | | | | | NEEDED, Starting Thu03/01/15 at | | | | | [...] | | | | | dose on [facility] 03/01/15 at 0900, Until | | [...]
--- OUTSIDE RECORDS SUMMARY | ~2019-05-23 | XMS | Encounter Summary ---
Demographics + + + | Address | [address] | | | [place] [address] | + + + | Home Phone [...] [place], [place] | | | | | [address] | | + + + + + | Ellie Vang | ECON | Unknown | | + + + + + Care Team Providers + +------+ + | Care Armature Connector Name | Role | Phone | + +------+ + | Fadi Goodrich DO | PCP | | + +------+ + Encounter Details +--------+ + + + + | Date | Type | Department | Care Team | Description | +--------+ + + + + | 03/28/ | Abstract | Cardiology | Randell Franks, | | | 2014 | | Preventive at [facility] | MD [address] | | | | | [address] | Ave [place], [place] | | | | | Mailcode: CH9A | [address] | | | | | [facility] | [phone] | | | | | and Healing, | | | | | | Building [address] | | | | | | [place], [place] | | | | | | [address] | | | | | | [phone] | | | +--------+ + + + [...] [place] | | | | | | [address] | | | | | | [phone] | | | | | | | | +--------+ + + + + documented as of this encounter Visit Diagnoses Not on filedocumented in this encounter"
--- OUTSIDE RECORDS SUMMARY | ~2019-05-23 | XMS | Encounter Summary ---
Demographics + + + | Address | [address] | | | [place] [address] | + + + | Home Phone [...] [place], [place] | | | | | [address] | | + + + + + | Ellie Vang | ECON | Unknown | | + + + + + Care Team Providers + +------+ + | Care Test And Turn Up Technician Name | Role | Phone | [...] | | | | | | [place] [address] | | | +--------+ + + + [...] [place] | | | | | | [address] | | | | | | [phone] | | | | | | | | +--------+ + + + + documented as of this encounter Visit Diagnoses Not on filedocumented in this encounter"
--- OUTSIDE RECORDS SUMMARY | ~2019-05-23 | XMS | Encounter Summary ---
Demographics + + + | Address | [address] | | | [place] [address] | + + + | Home Phone [...] [place], [place] | | | | | [address] | | + + + + + | Ellie Vang | ECON | Unknown | | + + + + + Care Team Providers + +------+ + | Care Dimension Stone Quarry Supervisor Name | Role | Phone | [...] | | | 2017 | Event | [facility] | MD Jodie,PhD [address]497 | | | | | Admitting Desk | [address] | | | | | Located on the 9 | [facility] [place] | | | | | floor [address] | [address] | | | | | [address] | [phone] | | | | | [place], [place] | | | | | | [address] | Jason Balbuena | | | | | | MD Twin [address] | | | | | | [address] | | | | | | [place], [place] | | | | | | [address] | | | | | | [phone] | | | | | | | [...] | | 2018 | Visit | | [address] | | | | | | [place], [place] | | | | | | [address] | | | | | | [phone] | | | | | | | [...]
--- OUTSIDE RECORDS SUMMARY | ~2019-05-23 | XMS | Encounter Summary ---
Demographics + + + | Address | [address] | | | [place] [address] | + + + | Home Phone [...] + | Katalina Padilla | ECON | [address] | | | | | [place], [place] | | | | | [address] | | + + + + + | Ellie Vang | ECON | Unknown | | + + + + + Care Team Providers + +------+ + | Care Cte Teacher Name | Role | Phone | + +------+ + | Kenyatta Cardenas MD | PCP | | + +------+ + Encounter Details +--------+ + + + + | Date | Type | Department | Care Team | Description | +--------+ + + + + | 03/01/ | Procedure | Diagnostic Imaging | | | | 2019 | Pass | Services at [facility] | | | | | | [address] | | | | | | Lesly Gutiérrez Mailcode: | | | | | | [address] [facility] | | | | | | [place], [place] | | | | | | [address] | | | | | | [phone] | | | +--------+ + + + [...] | | | | | [place], [place] | | | | | | [address] | | | | | | [phone] | | | | | | | | +--------+ + + + + documented as of this encounter Visit Diagnoses Not on filedocumented in this encounter"
--- OUTSIDE RECORDS SUMMARY | ~2019-05-23 | XMS | Encounter Summary ---
Demographics + + + | Address | [address] | | | [place] [address] | + + + | Home Phone [...] + | Katalina Padilla | ECON | [address] | | | | | [place], [place] | | | | | [address] | | + + + + + | Ellie Vang | ECON | Unknown | | + + + + + Care Team Providers + +------+ + | Care Pay Station Department Manager Name | Role | Phone | + +------+ + | Fadi Goodrich DO | PCP | | + +------+ + Encounter Details +--------+ + + + + | Date | Type | Department | Care Team | Description | +--------+ + + + + | 07/18/ | Abstract | Digestive Health | Shereen Georges, | | | 2012 | | Center at [facility] [address] | ACNP [address] | | | | | [address] | Ave [place], [place] | | | | | Mailcode: [place] | [address] | | | | | for Health and | | | | | | [facility] 2 | | | | | | [facility] [place] | | | | | | [address] | | | | | | | [...] | | 2019 | Visit | | [address] | | | | | | [place], [place] | | | | | | [address] | | | | | | [phone] | | | | | | | | +--------+ + + + + documented as of this encounter Visit Diagnoses Not on filedocumented in this encounter"
--- OUTSIDE RECORDS SUMMARY | ~2019-05-23 | XMS | Encounter Summary ---
Demographics + + + | Address | [address] | | | [place] [address] | + + + | Home Phone [...] [place], [place] | | | | | [address] | | + + + + + [...] | | | | | | [place] [address] | | | +--------+ + + + [...] | | 2019 | Visit | | [address] | | | | | | [place] [facility] [place] | | | | | | [address] | | | | | | [phone] | | | | | | | | +--------+ + + + + documented as of this encounter Visit Diagnoses Not on filedocumented in this encounter"
--- OUTSIDE RECORDS SUMMARY | ~2019-05-23 | XMS | Encounter Summary ---
Demographics + + + | Address | [address] | | | [place] [address] | + + + | Home Phone [...] [place], [place] | | | | | [address] | | + + + + + | Ellie Vang | ECON | Unknown | | + + + + + Care Team Providers + +------+ + | Care Casing Splitter Name | Role | Phone | + [...] | | | [address] | [facility] | | | | | Mailcode: Center | [place], [place] | | | | | [facility] and | [address] | | | | | [facility] 2 | [phone] | | | | | [place], [place] | | | | | | [address] | | | | | | [phone] | | | +--------+ + + + [...] | | | | [place], [place] | | | | | | [address] | | | | | | [phone] | | | | | | | | +--------+ + + + + documented as of this encounter Visit Diagnoses Not on filedocumented in this encounter"
--- OUTSIDE RECORDS SUMMARY | ~2019-05-23 | XMS | Encounter Summary ---
Demographics + + + | Address | [address] | | | [place] [address] | + + + | Home Phone [...] [place], [place] | | | | | [address] | | + + + + + | Ellie Vang | ECON | Unknown | | + + + + + Care Team Providers + +------+ + | Care Vice President Digital Strategist Name | Role | Phone | + +------+ + | Kenyatta Cardenas MD | PCP | | + +------+ + Encounter Details +--------+ + + + + | Date | Type | Department | Care Team | Description | +--------+ + + + + | 01/26/ | Abstract | Cardiology | Branden Gutiérrez MD | | | 2019 | | Preventive at [facility] | [address] | | | | | [address] | [place], [place] | | | | | Mailcode: CH9A | [address] | | | | | [facility] | [phone] | | | | | and Healing, | | | | | | Building [address] | | | | | | [place], [place] | | | | | | [address] | | | | | | [phone] | | | +--------+ + + + [...] | | | | | [place] | | | | | | [address] | | | | | | [phone] | | | | | | | | +--------+ + + + + documented as of this encounter Visit Diagnoses Not on filedocumented in this encounter"
--- OUTSIDE RECORDS SUMMARY | ~2019-05-23 | XMS | Encounter Summary ---
Demographics + + + | Address | [address] | | | [place] [address] | + + + | Home Phone [...] + | Katalina Padilla | ECON | [address] | | | | | [place], [place] | | | | | [address] | | + + + + + | Ellie Vang | ECON | Unknown | | + + + + + Care Team Providers + +------+ + | Care Range Rider Name | Role | Phone | + [...] | | Surgery | Diagnoses | | [place], | | | | | Ventral | Chilo, | MD Jones | | | | | hernia | MD Jones | [address] | | | | | without | [address] | [address] [place] | | | | | obstruction | [address] | Rd [place], | | | | | or gangrene | Rd | [place] | | | | | Procedures | [place], [place] | [address] | | | | | REQUEST TO | [address] | Phone: | | | | | SURGERY | Phone: | [phone] | | | | | ICER MACHINE OPERATOR | [phone] | Fax: | | | | | | Fax: | [phone] | | | | | | [phone] | | +--------+--------+ + + + + [...] 2019 | Visit | Center at [facility] | MD Jones [address] | without obstruction | | | | [address] | [facility] [address] | or gangrene (Primary | | | | Mailcode: Center | [place], [place] | Dx) | | | | for Health and | [address] | | | | | Healing, Building 2 | [phone] | | | | | [place], [place] | | | | | | [address] | | | | | | [phone] | | | +--------+---------+ + + + [...] (1?2 cup) 6.5 Avocado 1?2 fruit 2.1 Soso sprouts, cooked 125 mL (1?2 cup) 2.0 Figs, dried 60 mL (1?4 cup) 1.9 [place] 1 medium 1.8 Sweet Potato, cooked, without [...] 1.3 Eggplant 125 mL (1?2 cup) 1.3 [place], with skin 1 medium 1.0-1.3 Peas, green, cooked 125 mL (1?2 cup) 0.8-1.3 Carrot, cooked John 125 mL (1?2 cup) 1?2 fruit 1.1-1.2 0.7-1.1 Grapefruit 1?2 fruit 0.7-1.1 Prunes, dried 3 1.1 [place], with skin 2 fruits 1.1 Apricots, dried [...] Bread, rye 35 g (1 slice) 0.6-1.0 Cowley bread crackers 3 crackers 0.9 Raisin bran [...] [facility] General Surgery Office Toll-free: ext [phone] Surgery Date: Monday, July 08, [address]: Main [facility] Procedure: recurrent ventral hernia repair Surgeon Name: Dr. Jones Tiwari DIRECTIONS FOR SURGERY TO PREPARE FOR SURGERY - If you are able, walk every day for at least 30 minutes. - Follow up: Phone pre-operative medicine clinic call to be completed within 30 days of [facility]. This call appointment will be scheduled with you by a surgical scheduler. You will receive a ca ll [...] ease call the General Surgery Office at [phone] for [id number]. Check-in on the day of surgery is at the Admitting Department located on the 9th floor of [facility]. DIET Nothing to eat or [...] the surgery. Please see the list below, [facility] has a list of products that [...] contact our office . Products Containing Aspirin Yuki-Ledyard, Anacin, Anexsia with Codeine, Andynos, Aspirin, Aspirin suppositories, Ascrip tin, Aspergum, Axotal, B-A-C, Baby Aspirin, Lucila, BC Powder, Bexophene, Buffaprin, Bufferin , Buffinol, Cama-Arthritis Strength, Congespirin, Lacombe, Coricidin, Damason, Darvon, Dristan, Kalani-Gesic, Digel, Dolprin #3 Tablets, Donatab, Doxaphene, Duragesic, Easprin, Ecotrin, Emag rin Forte, Emiprin, Emprazil, Equagesic, Equazine M, Excedrin, Fiogesic, Fiorgen PH, Fiorice t, Fiorinal, 4-Way Cold Tablet, Gemnisyn, Indocin, Liquprin, Lortab ASA, Magnaprin, Marnal, Meprobamate, Midol, Momentum, Norgesic, Pellston, Orphengesic, Pabalate, P-A-C, Percodan, Pre salin, Robaxasil, Roxiprin, Saleto, Salocol, SK-65 Compound, Sine-Aid, Sine-Off, Moore, Supac, Talwin Compound, Trigesic, Tolectin, Traiminicin, Vanquish, ZORprin, Zomax Products Containing Ibuprofen Advil, Aleve, Haltran, Medipren, Midol, Motrin, Naproxyn, Nuprin, Rufen Herbal Medications Ephedra: discontinue 24 hours before surgery Garlic: discontinue 7 days prior to surgery Ginkgo: discontinue 36 hours prior to surgery Ginseng: discontinue 7 days prior to surgery Kava: discontinue 24 hours prior to surgery Ezel s Wort: discontinue 5 days prior to surgery Valerian: discontinue several weeks prior to surgery Other Products Which May Promote Bleeding Vitamin E, Gingko Biloba, Marine Fatty Acids, [place]-3 Fish Oil Supplement PRE-OP BATHING/SHOWER INSTRUCTIONS with [facility] Bathe or shower the evening before and [...] and nicotine products. .QUIT.NOW ( ) or www.quitnow.net/[place] PARKING Parking at the Hospital for patients and visitors is available in the [facility] Parking s tructure located across from the emergency department. Patient parking is available on level 1 and 3. Metered parking is available on the top level. Parking at [facility] is available in the building's parking structure. For additional parking options visit [email or web address]. TRANSPORTATION You will require transportation home on the day of discharge. Pain medications and physical activity restrictions may limit your ability to drive safely. CANCELLING YOUR PROCEDURE Please notify the general surgery office at [phone] as soon as possible should you nee [...] lost 100+ lbs! [facility], at which time [...] plans to see an ENT and a parakeet raiser for her symptoms in the near future. [...] file Gets together: Not on file Attends roman catholic service: Not on file Active member of club or organization: Not on file Attends meetings of clubs or organizations: Not on file Relationship status: Not on file Other Topics Concern Not on file Social History Narrative Updated 11/09/15 She lives in [place] with her mother and her sister (also her caregiver) lives in an apa rtment/duplex below. She has 2 grandchildren (age 4 and 7) who live with her daughter and son-in-law Her boyfriend lives in [place] HFpEF, DM2, HTN, Sleep Apnea (unable to [...] program here and refer her to our visitor services specialist who also has expertise in [...] daily. BELBUCA 600 mcg buccal film CALCIUM [id number]-[id number]-TNG43-GENIS ORAL Take 2 tablets by mouth two [...] morbid obesity s/p laparoscopic anteocolic RYGB (03/01/2018); [facility] e this operation, she has lost [...] by Gadiel Yi . JONES TIWARI MD [facility] [address] Mailcode: [place] [address] I spent 31 minutes with [...] | | 2018 | Visit | | [address] | | | | | | [place], [place] | | | | | | [address] | | | | | | [phone] | | | | | | | | +--------+ + + + + documented as of this encounter Visit Diagnoses + + | Diagnosis | + + | Ventral hernia without obstruction or gangrene - Primary Ventral hernia, unspecified, | | without mention of obstruction or gangrene | + + documented in this encounter
--- OUTSIDE RECORDS SUMMARY | ~2019-05-23 | XMS | Encounter Summary ---
Demographics + + + | Address | [address] | | | [place] [address] | + + + | Home Phone [...] [place], [place] | | | | | [address] | | + + + + + | Ellie Vang | ECON | Unknown | | + + + + + Care Team Providers + +------+ + | Care Cable Layer Name | Role | Phone | [...] | | [address] | Ave [place], [place] | | | | | Mailcode: [place] | [address] | | | | | for Health and | | | | | | [facility] 2 | | | | | | [facility] [place] | | | | | | [address] | | | | | | | [...] | | 2019 | Visit | | [address] | | | | | | [place], [place] | | | | | | [address] | | | | | | [phone] | | | | | | | | +--------+ + + + + documented as of this encounter Visit Diagnoses Not on filedocumented in this encounter"
--- OUTSIDE RECORDS SUMMARY | ~2019-05-23 | XMS | Encounter Summary ---
Demographics + + + | Address | [address] | | | [place] [address] | + + + | Home Phone [...] [place], [place] | | | | | [address] | | + + + + + | Ellie Vang | ECON | Unknown | | + + + + + Care Team Providers + +------+ + | Care Quality Control Expert Name | Role | Phone | [...] Diabetes & | Morbid | Kathy Feliciano, INDUSTRIAL ORGANIZATION MANAGER | [address] | | | | Metabolism | obesity | [address] | | | | | ([facility]) | [address], | [address] | | | | | Procedures | [address] | Physician's | | | | | CONSULT TO | [place], [place] | Pavilion | | | | | ENDO | [address] | Physician's | | | | | [address] | Phone: | Pavilion | | | | | [address] | [phone] | [place], [place] | | | | | | Fax: | [address] | | | | | | [phone] | Phone: | | | | | | | [phone] | | | | | | | Fax: | | | | | | | [phone] | +--------+--------+ + + + + Encounter Details +--------+ + + + + | Date | Type | Department | Care Team | Description | +--------+ + + + + | 11/15/ | Documentati | Digestive Health | Kathy Feldman, | | | 2012 | on | Center at [facility] [address] | INDUSTRIAL ORGANIZATION MANAGER [address] | | | | | [address] | [facility] 350 | | | | | Mailcode: Center | [place], [place] | | | | | [facility] and | [address] | | | | | [facility] 2 | [phone] | | | | | [place], [place] | | | | | | [address] | | | | | | [phone] | | | +--------+ + + + [...] [place] | | | | | | [address] | | | | | | [phone] | | | | | | | | +--------+ + + + + documented as of this encounter Visit Diagnoses + + | Diagnosis | + + | Morbid obesity (HCC) - Primary Morbid obesity | + + documented in this encounter"
--- OUTSIDE RECORDS SUMMARY | ~2019-05-23 | XMS | Encounter Summary ---
Demographics + + + | Address | [address] | | | [place] [address] | + + + | Home Phone [...] [place], [place] | | | | | [address] | | + + + + + | Ellie Vang | ECON | Unknown | | + + + + + Care Team Providers + +------+ + | Care Vocational Guidance Counselor Name | Role | Phone | [...] | | | | | | [facility] [address] [facility] | | | | | | [facility] | | | | | | [place], [place] | | | | | | [address] | | | +--------+ + + + [...] | | | | [place], [place] | | | | | | [address] | | | | | | [phone] | | | | | | | | +--------+ + + + + documented as of this encounter Visit Diagnoses Not on filedocumented in this encounter"
--- OUTSIDE RECORDS SUMMARY | ~2019-05-23 | XMS | Encounter Summary ---
Demographics + + + | Address | [address] | | | [place] [address] | + + + | Home Phone [...] [place], [place] | | | | | [address] | | + + + + + | Ellie Vang | ECON | Unknown | | + + + + + Care Team Providers + +------+ + | Care Certified Coding Specialist Name | Role | Phone | + +------+ + | Fadi Goodrich DO | PCP | | + +------+ + Encounter Details +--------+ + + + + | Date | Type | Department | Care Team | Description | +--------+ + + + + | 12/05/ | Abstract | Cardiology | Randell Franks, | | | 2016 | | Preventive at [facility] | MD [address] | | | | | [address] | Ave [place], [place] | | | | | Mailcode: CH9A | [address] | | | | | [facility] | [phone] | | | | | and Healing, | | | | | | Building 1 | | | | | | [place], [place] | | | | | | [address] | | | | | | [phone] | | | +--------+ + + + [...] [place] | | | | | | [address] | | | | | | [phone] | | | | | | | | +--------+ + + + + documented as of this encounter Visit Diagnoses Not on filedocumented in this encounter"
--- OUTSIDE RECORDS SUMMARY | ~2019-05-23 | XMS | Encounter Summary ---
Demographics + + + | Address | [address] | | | [place] [address] | + + + | Home Phone [...] [place], [place] | | | | | [address] | | + + + + + | Ellie Vang | ECON | Unknown | | + + + + + Care Team Providers + +------+ + | Care Chemical Equipment Controller Name | Role | Phone | + +------+ + | Fadi Goodrich DO | PCP | | + +------+ + Encounter Details +--------+ + + + + | Date | Type | Department | Care Team | Description | +--------+ + + + + | 10/27/ | Abstract | Digestive Health | Clinic, Surgery | | | 2018 | | [place] [facility] [address] | | | | | | [address] | | | | | | Mailcode: [place] | | | | | | [facility] and | | | | | | [facility] 2 | | | | | | [place], [place] | | | | | | [address] | | | | | | [phone] | | | +--------+ + + + [...] | | | | | [place], [place] | | | | | | [address] | | | | | | [phone] | | | | | | | | +--------+ + + + + documented as of this encounter Visit Diagnoses Not on filedocumented in this encounter"
--- OUTSIDE RECORDS SUMMARY | ~2019-05-23 | XMS | Encounter Summary ---
Demographics + + + | Address | [address] | | | [place] [address] | + + + | Home Phone [...] [place], [place] | | | | | [address] | | + + + + + | Ellie Vang | ECON | Unknown | | + + + + + Care Team Providers + +------+ + | Care Brake Operator Helper Name | Role | Phone [...] | | | 2012 | Event | [facility] | [address] | | | | | Admitting Desk | [address] | | | | | Located on the | [place], [place] | | | | | [facility] [address] | [address] | | | | | [address] | [phone] | | | | | [place], [place] | | | | | | [address] | | | +--------+ + + + [...] | | 2018 | Visit | | [address] | | | | | | [place], [place] | | | | | | [address] | | | | | | [phone] | | | | | | | [...]
--- OUTSIDE RECORDS SUMMARY | ~2019-05-23 | XMS | Encounter Summary ---
Demographics + + + | Address | [address] | | | [place] [address] | + + + | Home Phone [...] [place], [place] | | | | | [address] | | + + + + + | Ellie Vang | ECON | Unknown | | + + + + + Care Team Providers + +------+ + | Care Agency Sales Management Assistant Name | Role | Phone | [...] | | 2019 | Visit | | [address] | | | | | | [place], [place] | | | | | | [address] | | | | | | [phone] | | | | | | | | +--------+ + + + + documented as of this encounter Visit Diagnoses Not on filedocumented in this encounter"
--- OUTSIDE RECORDS SUMMARY | ~2019-05-23 | XMS | Encounter Summary ---
Demographics + + + | Address | [address] | | | [place] [address] | + + + | Home Phone [...] [place], [place] | | | | | [address] | | + + + + + | Ellie Vang | ECON | Unknown | | + + + + + Care Team Providers + +------+ + | Care Pe Manager Name | Role | Phone | [...] | | 2019 | | Preventive at [facility] | [address] | stop any | | | | [address] | Ave [place], [place] | medications? ) | | | | Mailcode: [place] | [address] | | | | | [facility] | [phone] | | | | | and Healing, | | | | | | Building [address] | | | | | | [place], [place] | | | | | | [address] | | | | | | [phone] | | | +--------+ + + + [...] | | 2019 | Visit | | [address] | | | | | | [place] [facility] [place] | | | | | | [address] | | | | | | [phone] | | | | | | | | +--------+ + + + + documented as of this encounter Visit Diagnoses Not on filedocumented in this encounter"
--- OUTSIDE RECORDS SUMMARY | ~2019-05-23 | XMS | Encounter Summary ---
Demographics + + + | Address | [address] | | | [place] [address] | + + + | Home Phone [...] [place], [place] | | | | | [address] | | + + + + + | Ellie Vang | ECON | Unknown | | + + + + + Care Team Providers + +------+ + | Care Grainer Machine Name | Role | Phone | [...] [id number] | | | | | | [facility] | | | | | | [place], [place] | | | | | | [address] | | | | | | [phone] | | | +--------+ + + + [...] | | | | | [place], [place] | | | | | | [address] | | | | | | [phone] | | | | | | | | +--------+ + + + + documented as of this encounter Visit Diagnoses Not on filedocumented in this encounter"
--- OUTSIDE RECORDS SUMMARY | ~2019-05-23 | XMS | Encounter Summary ---
Demographics + + + | Address | [address] | | | [place] [address] | + + + | Home Phone [...] [place], [place] | | | | | [address] | | + + + + + | Ellie Vang | ECON | Unknown | | + + + + + Care Team Providers + +------+ + | Care Machine Technician Name | Role | Phone | [...] | | Preventive at [facility] | [address] | | | | | [address] | [place], [place] | | | | | Mailcode: CH9A | [address] | | | | | [facility] | [phone] | | | | | and Healing, | | | | | | Building [address] | | | | | | [place], [place] | | | | | | [address] | | | | | | [phone] | | | +--------+ + + + [...] | | | | | [place] | | | | | | [address] | | | | | | [phone] | | | | | | | | +--------+ + + + + documented as of this encounter Visit Diagnoses Not on filedocumented in this encounter"
--- OUTSIDE RECORDS SUMMARY | ~2019-05-23 | XMS | Encounter Summary ---
Demographics + + + | Address | [address] | | | [place] [address] | + + + | Home Phone [...] [place], [place] | | | | | [address] | | + + + + + | Ellie Vang | ECON | Unknown | | + + + + + Care Team Providers + +------+ + | Care Production Internship Name | Role | Phone | + +------+ + | Fadi Goodrich DO | PCP | | + +------+ + Encounter Details +--------+------+ + + + | Date | Type | Department | Care Team | Description | +--------+------+ + + + | 10/12/ | Lab | Laboratory at [facility] | | | | 2019 | | [address] | | | | | | [place], [place] | | | | | | [address] | | | | | | [phone] | | | +--------+------+ + + + [...] | | 2018 | Visit | | [address] | | | | | | [place], [place] | | | | | | [address] | | | | | | [phone] | | | | | | | [...] + + + + + | [facility] | [address] | [place] [address] | | | SERVICES, [facility] | [address] | | | + [...] INT[facility] | | | | determined by [facility] | | | | | | Laboratories. See | | | | | | Compliance Statement B: | | | | | | HuddleApp/CSPerformed | | | | | | by OrdrIt,500 | | | | | | Liliana Martinez, [facility],[place] | | | | | | [address] | | | | | | [phone].[employer]. | | | | | | Ismael [...] [facility] | [address] | [place], [place] | | | UNIV PTH - INTFC | | [address] | | + + + + + [...] | | | | | determined by [facility] | | | | | | Laboratories. See | | | | | | Compliance Statement B: | | | | | | Tap2print.JustGo/CSPerformed | | | | | | by OrdrIt,500 | | | | | | [facility]iana [facility],[place] | | | | | | [address] | | | | | | [phone].Tap2print. | | | | | | com, [...] [facility] | [address] | [place], [place] | | | UNIV PTH - INTFC | | [address] | | + + + + + [...] [facility] | | | (YEN NOAH) | [facility],500 | | REG UNIV | | | SERUM | [facility], [facility],[place] | | PTH - INTFC | | | | [address] | | | | | | [phone].[employer]uplab. | | | | | | JustGo, Ismael Willis MD, | | | | [...] B: | | | | | | Tap2print.JustGo/ | | | | + + + + + + + + | Specimen | + + | Blood - Blood | | (substance) | + + + + + + + | Performing | Address | City/State/Zipcode | Phone Number | | Organization | | | | + + + + + | [facility] | [address] | [place], [place] | | | UNIV PTH - INTFC | | [address] | | + + + + + [...] [facility] | [address] | [place] [address] | | | SERVICES, CORE | PARK [...] + + + + + | [facility] | [address] | [place] [address] | | | SERVICES, LYDIA | [address] [...] B: | | | | | | Tap2print.JustGo/CSPerformed | | | | | | by OrdrIt,500 | | | | | | Liliana Martinez [facility],[place] | | | | | | [address] | | | | | | [phone].Tap2print. | | | | | | com, [...] [facility] | [address] | [place], [place] | | | UNIV PTH - INTFC | | [address] | | + + + + + [...] [facility] | [address] | [place] [address] | | | SERVICES, CORE | [address] [...] | | | | | determined by [facility] | | | | | | Laboratories. See | | | | | | Compliance Statement B: | | | | | | Tap2print.JustGo/CSPerformed | | | | | | by OrdrIt,500 | | | | | | Liliana Martinez, [facility],[place] | | | | | | [address] | | | | | | [phone].Tap2print. | | | | | | comIsmael [...] [facility] | [address] | [place], [place] | | | UNIV PTH - INTFC | | [address] | | + + + + + [...] [facility] | [address] | [place] [address] | | | SERVICES, CORE | PARK [...] + + | [facility] | [address] | [place] [address] | | | SERVICES, SPECIAL | [address] [...] + + + + + | [facility] | [address] | [place] [address] | | | SERVICES, CORE | [address] [...] at | | | | | | [email or web address] | | | | | | med by [facility] | | | | | | Sergo,Henok Ford | | | | | | [place] [address] | | | | | | [phone].Tap2print. | | | | | | tooele valley hospitalIsmael MD, | | | | [...] [facility] | [address] | [place], [place] | | | UNIV PTH - INTFC | | [address] | | + + [...] | | | LABORATORY | | | [place] | | | SERVICES, | | | [...] + + + + + | [facility] | [address] | [place] [address] | | | SERVICES, CORE | [address] | | | + + + + + documented in this encounter Visit Diagnoses Not on filedocumented in this encounter"
--- OUTSIDE RECORDS SUMMARY | ~2019-05-23 | XMS | Encounter Summary ---
Demographics + + + | Address | [address] | | | [place] [address] | + + + | Home Phone [...] + | Katalina Padilla | ECON | [address] | | | | | [place], [place] | | | | | [address] | | + + + + + | Ellie Vang | ECON | Unknown | | + + + + + Care Team Providers + +------+ + | Care Manufacturing Planner Name | Role | Phone | [...] | | | [address] | [place], [place] | | | | | [address] [facility] | [address] | | | | | Rd Mailcode: UHN83 | [phone] | | | | | Francesco Peres | | | | | | [address] [place], [place] | | | | | | [address] | | | | | | [phone] | | | +--------+ + + + [...] | | 2018 | Visit | | [address] | | | | | | [place], [place] | | | | | | [address] | | | | | | [phone] | | | | | | | | +--------+ + + + + documented as of this encounter Visit Diagnoses Not on filedocumented in this encounter"
--- OUTSIDE RECORDS SUMMARY | ~2019-05-23 | XMS | Encounter Summary ---
Demographics + + + | Address | [address] | | | [place] [address] | + + + | Home Phone [...] [place], [place] | | | | | [address] | | + + + + + | Ellie Vang | ECON | Unknown | | + + + + + Care Team Providers + +------+ + | Care Maple Products Maker Name | Role | Phone | [...] | 2015 | Review | Center at [facility] [address] | MD | Decision | | | [address] | | | | | | Mailcode: [place] | | | | | | [facility] and | | | | | | [facility] 2 | | | | | | [place], [place] | | | | | | [address] | | | | | | [phone] | | | +--------+ + + + [...] | | | | | [place], [place] | | | | | | [address] | | | | | | [phone] | | | | | | | | +--------+ + + + + documented as of this encounter Visit Diagnoses Not on filedocumented in this encounter"
--- OUTSIDE RECORDS SUMMARY | ~2019-05-23 | XMS | Encounter Summary ---
Demographics + + + | Address | [address] | | | [place] [address] | + + + | Home Phone [...] + | Katalina Padilla | ECON | [address] | | | | | [place], [place] | | | | | [address] | | + + + + + | Ellie Vang | ECON | Unknown | | + + + + + Care Team Providers + +------+ + | Care It Senior Software Engineer Java Name | Role | Phone | + [...] | | | | | (HCC) | [place], [place] | Mailcode: | | | | | Procedures | [address] | [address] [facility] | | | | | CT ABDOMEN & | Phone: | Hospital | | | | | PELVIS WWO | | [place], [place] | | | | | IV CONTRAST | Fax: | [address] | | | | | [place] | [phone] | Phone: | | | | | ABDOMEN&PELV | | [phone] | | | | | IS | | Fax: | | | | | W/CONTRAST | | [phone] | | | | | See chart [...] Lab at [facility] [address] | | | | | | [address] Mailcode: | | | | | | [facility] | | | | | | Health and Healing, | | | | | | [place] [address], [facility] | | | | | | Floor [place], [place] | | | | | | [address] | | | | | | [phone] | | | +--------+ + + + [...] | | | | | [place], [place] | | | | | | [address] | | | | | | [phone] | | | | | | | [...] + + | JUSTINE PEÑA | [address] [facility] | [place] [address] | | | OF CARE TESTS | | | | + + + + + documented in this encounter Visit Diagnoses + + | Diagnosis | + + | Abdominal pain | + + | Morbid obesity (HCC) Morbid obesity | + + documented in this encounter"
--- OUTSIDE RECORDS SUMMARY | ~2019-05-23 | XMS | Encounter Summary ---
Demographics + + + | Address | [address] | | | [place] [address] | + + + | Home Phone [...] [place], [place] | | | | | [address] | | + + + + + | Ellie Vang | ECON | Unknown | | + + + + + Care Team Providers + +------+ + | Care Rn Integrity Name | Role | Phone | + [...] | | | 2017 | Event | [facility] | Joann Person MD,PhD | | | | | Admitting Desk | [address] | | | | | Located on the 9 | [facility] [place] | | | | | floor [address] [facility] | [address] | | | | | [address] | [phone] | | | | | [place], [place] | | | | | | [address] | Graham Honeycutt, | | | | | | LABEL SEWER [address] | | | | | | [address] | | | | | | [place], [place] | | | | | | [address] | | | | | | [phone] | | | | | | | [...] | | Endotracheal Tube; 7; Oral; | LABEL SEWER | LABEL SEWER | | | Cuffed; 06/23/18; 1542 | [...] | | | | [place], [place] | | | | | | [address] | | | | | | [phone] | | | | | | | [...] bed and dolores for RSI. Performed by LABEL SEWER | | | GRAHAM HONEYCUTT | | [...] PST | | | | | Until 06/23/18 at 1542 | | | | [...]
--- OUTSIDE RECORDS SUMMARY | ~2019-05-23 | XMS | Encounter Summary ---
Demographics + + + | Address | [address] | | | [place] [address] | + + + | Home Phone [...] [place], [place] | | | | | [address] | | + + + + + | Ellie Vang | ECON | Unknown | | + + + + + Care Team Providers + +------+ + | Care Welder Operator Name | Role | Phone | + +------+ + | Fadi Goodrich DO | PCP | | + +------+ + Encounter Details +--------+ + + + + | Date | Type | Department | Care Team | Description | +--------+ + + + + | 02/09/ | Abstract | Digestive Health | Clinic, Surgery | | | 2016 | | [place] [address] [address] | | | | | | [address] | | | | | | Mailcode: [place] | | | | | | [facility] Health and | | | | | | [facility] 2 | | | | | | [place], [place] | | | | | | [address] | | | | | | [phone] | | | +--------+ + + + [...] | | | | | [place], [place] | | | | | | [address] | | | | | | [phone] | | | | | | | | +--------+ + + + + documented as of this encounter Visit Diagnoses Not on filedocumented in this encounter"
--- OUTSIDE RECORDS SUMMARY | ~2019-05-23 | XMS | Encounter Summary ---
Demographics + + + | Address | [address] | | | [place] [address] | + + + | Home Phone [...] [place], [place] | | | | | [address] | | + + + + + | Ellie Vang | ECON | Unknown | | + + + + + Care Team Providers + +------+ + | Care Hide Trimmer Name | Role | Phone | [...] | | | | | | [place] [address] | | | +--------+ + + + [...] | | 2019 | Visit | | [address] | | | | | | [place] [facility] [place] | | | | | | [address] | | | | | | [phone] | | | | | | | | +--------+ + + + + documented as of this encounter Visit Diagnoses Not on filedocumented in this encounter"
--- OUTSIDE RECORDS SUMMARY | ~2019-05-23 | XMS | Encounter Summary ---
Demographics + + + | Address | [address] | | | [place] [address] | + + + | Home Phone [...] [place], [place] | | | | | [address] | | + + + + + | Ellie Vang | ECON | Unknown | | + + + + + Care Team Providers + +------+ + | Care Blackjack Supervisor Name | Role | Phone | [...] | | | | | bypass | [place], | Mailcode: | | | | | Nausea and | [place] | [address] [facility] | | | | | vomiting, | [address] | Hospital | | | | | intractabili | Phone: | [place], [place] | | | | | ty of | | [address] | | | | | vomiting not | Fax: | Phone: | | | | | specified, | [phone] | [phone] | | | | | unspecified | | Fax: | | | | | vomiting | | [phone] | | | | | type | [...] | | | | | | CONTRAST [place] | | | | | | | CT SCAN OF | | | | | | | ABDOMEN | | | | | | | [place]AST [place] | | | | | | [...] | | | | | bypass | [place], | Mailcode: | | | | | Nausea and | [place] | [address] [facility] | | | | | vomiting, | [address] | Hospital | | | | | intractabili | Phone: | [place], [place] | | | | | ty of | | [address] | | | | | vomiting not | Fax: | Phone: | | | | | specified, | [phone] | [phone] | | | | | unspecified | | Fax: | | | | | vomiting | | [phone] | | | | | type | [...] | | | | | | CONTRAST [place] | | | | | | | CT SCAN OF | | | | | | | ABDOMEN | | | | | | | CONTRAST [place] | | | | | | [...] | 2019 | Encounter | Services at [facility] | [place] | | | | | [address] | [place], [place] | | | | | Lesly Gutiérrez Mailcode: | [address] | | | | | [address] [facility] | [phone] | | | | | [place], [place] | | | | | | [address] | | | | | | [phone] | | | +--------+ + + + [...] | | 0 | | | | [id number] | mouth two times | | | [...] | | 2018 | Visit | | [address] | | | | | | [place], [place] | | | | | | [address] | | | | | | [phone] | | | | | | | [...]
--- OUTSIDE RECORDS SUMMARY | ~2019-05-23 | XMS | Clinical Summary ---
Demographics + + + | Address | [address] | | | [place] [address] | + + + | Home Phone | | + + + | Preferred Language | Unknown | + + + | Marital Status | | + + + | Sikh Affiliation | Unknown | + + + | Race | Unknown | + + + | Ethnic Group | Unknown | + + + Author + + + | Author | [facility] (Historical as of | | | 03-12-19) | + + + | Organization | [facility] (Historical as of | | | 03-12-19) [...] Team Providers + +------+ + | Care Filbert Grower Name | Role | Phone | [...] | | | Activ | | (DRISDOL) [id number] | mouth twice a week. | | [...] | obesity, she is enrolled in the [facility] bariatric program. She has | | [...] obesityPickwickian syndrome Recent | | admission to [facility] for 100lb weight | | gain- DC on diuresis on 03/06/2016- she feel improvedShe was on | | Metolazone and Torsemide prior to hospitalization- both have | | better bioavailability than lasix in gut edema but she retained | | 100lbs - how ever she is currently on only Torsemide 100mg Q12hrs | | started in [place] and her weight been stable sinceShe has no | | other complaints.She is pending to see NephrologistCiriloo | | 02/16/2016([facility])- Normal LV systolic function, mildly | [...] Dylan Romero Date of : 1975 | [facility] | | Performing Physician: Darryl Merrill [...] MV A Jeffrey: 0.61 m/s MV Dec Valencia: 2.43 m/s2 | | | MV DecT: 247.51 ms MV E Jeffrey: 0.60 m/s MV E/A Ratio: | | | 0.98 MV PHT: 71.78 ms MVA By PHT: 3.06 cm2 Septal e': | | | 0.06 m/s Septal E/e': 9.54 Lateral e': 0.10 m/s Lateral | | | E/e': 5.84 RAP: 5 mmHg RV s': 0.11 m/s Continuous Improvement Specialist: | | | DH Authenticated by: Darryl [facility] Report Date/Time: 02-22-2019 | | | 20:8:36 | | + + + + --------+ | Procedure Note | + --------+ | Aditya, Rad Results In - 02/22/2019 8:10 PM PDT Patient Name: Sherrell Romero | | : 1975Accession: [id number] Physician: Darryl | | Alsamara INDICATIONS------ | [...] cmLVIDd: 4.70 cmLVPWd: 0.79 cmLVOT Area: 3.58 ik9MZZD Diam: 2.13 | | cm%FS: 39.25 %EF(Teich): [...] mlLAESV Index (A-L): 14.72 ml/m2LAAs A2C: 10.03 do0CXEHG A-L A2C: 22.69 | | mlLALs A2C: 3.76 cmLAAs A4C: 13.41 ro2ZHFUG A-L A4C: 36.80 mlLALs A4C: 4.14 | | cmRAAs: 11.18 is9DEBFC A-L: 22.84 mlRAESV MOD: 22.10 mlRALs: 4.64 cmTAPSE: | | 2.04 cmAV maxP.55 mmHgAV meanP.52 mmHgAV Vmax: 1.27 m/Genesis Vmean: 0.88 | | m/Genesis VTI: 26.50 cmAVA Vmax: 2.49 cm2AVA (VTI): 2.39 mh9DMLL Vmax: 0.00 | | cm2/m2AVAI (VTI): 0.00 cm2/m2LVOT maxP.17 mmHgLVOT meanP.82 mmHgLVSI Dopp: | | 30.83 ml/m2LVSV Dopp: 63.52 mlLVOT Vmax: 0.89 m/sLVOT Vmean: 0.65 m/sLVOT VTI: | | 17.71 cmMV A Jeffrey: 0.61 m/sMV Dec Valencia: 2.43 m/s2MV DecT: 247.51 msMV E Jeffrey: | | 0.60 m/sMV E/A Ratio: 0.98 MV PHT: 71.78 msMVA By PHT: 3.06 aa9Vhrnhs e': 0.06 | | m/sSeptal E/e': 9.54 Lateral e': 0.10 m/sLateral E/e': 5.84 RAP: 5 mmHgRV s': | | 0.11 m/sSonographer: DHAuthenticated by: Darryl [facility] Date/Time: 02-22-2019 | | 20:8:36IMPRESSION:1. Overall [...] A Jeffrey: 0.61 m/s | |MV Dec Valencia: 2.43 m/s2 | |MV DecT: 247.51 ms | |MV E Jeffrey: 0.60 m/s | |MV E/A Ratio: 0.98 | |MV PHT: 71.78 ms | |MVA By PHT: 3.06 cm2 | |Septal e': 0.06 m/s | |Septal E/e': 9.54 | |Lateral e': 0.10 m/s | |Lateral E/e': 5.84 | |RAP: 5 mmHg | |RV s': 0.11 m/s | | | |Continuous Improvement Specialist: | |Authenticated by: Darryl Merrill | |Report [...] [facility] | [address] | [place] [address] | | + + + + + [...] +------+-------+ + | MEDICAID | [place] | [id number] | | | [address] | | | [place] | | | | [place] | | | [place] | | | | [address] | | | TRAVELERS' AID WORKER | | | | | + +--------+ [...] | mireya | | | [address] | [address] | + +--------+ +--------+ + +
--- OUTSIDE RECORDS SUMMARY | ~2019-05-23 | XMS | Encounter Summary ---
Demographics + + + | Address | [address] | | | [place] [address] | + + + | Home Phone [...] [place], [place] | | | | | [address] | | + + + + + | Ellie Vang | ECON | Unknown | | + + + + + Care Team Providers + +------+ + | Care Product Tester Fiberglass Name | Role | Phone | + +------+ + | Fadi Goodrich DO | PCP | | + +------+ + Encounter Details +--------+ + + + + | Date | Type | Department | Care Team | Description | +--------+ + + + + | 12/31/ | Abstract | Digestive Health | Hernandez Brian, | | | 2012 | | Center at [facility] [address] | MD [address] | | | | | [address] | [facility] | | | | | Mailcode: Center | [place], [place] | | | | | [facility] Health and | [address] | | | | | [facility] 2 | [phone] | | | | | [place], [place] | | | | | | [address] | | | | | | [phone] | | | +--------+ + + + [...] | | | | | [place] [facility] [place] | | | | | | [address] | | | | | | [phone] | | | | | | | | +--------+ + + + + documented as of this encounter Visit Diagnoses Not on filedocumented in this encounter"
--- OUTSIDE RECORDS SUMMARY | ~2019-05-23 | XMS | Encounter Summary ---
Demographics + + + | Address | [address] | | | [place] [address] | + + + | Home Phone [...] [place], [place] | | | | | [address] | | + + + + + | Ellie Vang | ECON | Unknown | | + + + + + Care Team Providers + +------+ + | Care Equipment Installer Name | Role | Phone | + +------+ + | Fadi Goodrich DO | PCP | | + +------+ + Encounter Details +--------+ + + + + | Date | Type | Department | Care Team | Description | +--------+ + + + + | 06/09/ | Abstract | Cardiology | Randell Franks, | | | 2015 | | Preventive at [facility] | MD [address] | | | | | [address] | Ave [place], [place] | | | | | Mailcode: CH9A | [address] | | | | | [facility] | [phone] | | | | | and Healing, | | | | | | Building 1 | | | | | | [place], [place] | | | | | | [address] | | | | | | [phone] | | | +--------+ + + + [...] [place] | | | | | | [address] | | | | | | [phone] | | | | | | | | +--------+ + + + + documented as of this encounter Visit Diagnoses Not on filedocumented in this encounter"
--- OUTSIDE RECORDS SUMMARY | ~2019-05-23 | XMS | Encounter Summary ---
Demographics + + + | Address | [address] | | | [place] [address] | + + + | Home Phone [...] [place], [place] | | | | | [address] | | + + + + + | Ellie Vang | ECON | Unknown | | + + + + + Care Team Providers + +------+ + | Care Switchboard Mechanic Name | Role | Phone | + +------+ + | Fadi Goodrich DO | PCP | | + +------+ + Encounter Details +--------+ + + + + | Date | Type | Department | Care Team | Description | +--------+ + + + + | 02/15/ | Abstract | Digestive Health | Hernandez Brian, | | | 2012 | | Center at [facility] [address] | MD [address] | | | | | [address] | [facility] | | | | | Mailcode: Center | [place], [place] | | | | | [facility] Health and | [address] | | | | | [facility], [facility] 2 | [phone] | | | | | [place], [place] | | | | | | [address] | | | | | | [phone] | | | +--------+ + + + [...] [place] | | | | | | [address] | | | | | | [phone] | | | | | | | | +--------+ + + + + documented as of this encounter Visit Diagnoses Not on filedocumented in this encounter"
--- OUTSIDE RECORDS SUMMARY | ~2019-05-23 | XMS | Encounter Summary ---
Demographics + + + | Address | [address] | | | [place] [address] | + + + | Home Phone [...] [place], [place] | | | | | [address] | | + + + + + | Ellie Vang | ECON | Unknown | | + + + + + Care Team Providers + +------+ + | Care Improvement Leader Name | Role | Phone | [...] | 2019 | Visit | Preventive at [facility] | [address] | mellitus without | | | | [address] | Ave [place], [place] | complication, with | | | | Mailcode: CH9A | [address] | long-term current | | | | [facility] | [phone] | use of insulin ([facility]) | | | | and Healing, | | (Primary Dx); | | | | Building 1 | | Morbid obesity with | | | | [place], [place] | | BMI of 70 and over, | | | | [address] | | adult (HCC) | | | | [phone] | | | +--------+---------+ + + + [...] Phentermine started Type 2 diabetes mellitus ([facility]) 04/14/2013 Priority: 5 Iron deficiency anemia due to chronic blood loss 11/11/2015 Priority: 6 Overview Note: Ferritin 18 on 10/2015 Hypoalbuminemia (no proteinuria, need to rule out synthetic, nutrition, loss) 6 Priority: 6 Hypothyroidism 08/28/2014 Priority: 8 Morbid obesity with BMI of 70 and over, adult ([facility]) 02/02/2017 Chronic diastolic heart failure (HCC) 02/02/2017 [...] daily. BELBUCA 300 mcg buccal film CALCIUM CRB&GZM-R4-DHU35-GENIS ORAL Take 2 tablets by mouth two [...] of metformin, and she reports her last bsqzm-kq-ursv A1 c was 5.5% on this dose. [...] CREATININE PLASMA (LAB) 0.85 0.70 EGFR - TRINIDADIAN >60 >60 EGFR NON -TRINIDADIAN >60 >60 GLUCOSE, PLASMA (LAB) 123 (H) [...] currently being managed well by her Digital Measurement Advisor with diuretics and main tenance of her [...] of her heart failure by her Digital Measurement Advisor 3) discontinue metformin 4) check 24 urine [...] | | 2018 | Visit | | [address] | | | | | | [place], [place] | | | | | | [address] | | | | | | [phone] | | | | | | | [...] + + | [facility] - | [address] | [place] | [phone] | | [place]IMA | | | | [...]
--- OUTSIDE RECORDS SUMMARY | ~2019-05-23 | XMS | Encounter Summary ---
Demographics + + + | Address | [address] | | | [place] [address] | + + + | Home Phone [...] [place], [place] | | | | | [address] | | + + + + + | Ellie Vang | ECON | Unknown | | + + + + + Care Team Providers + +------+ + | Care Harbor Tug Captain Name | Role | Phone | [...] 2018 | Visit | Center at [facility] [address] | | (Primary Dx) | | | | [address] | | | | | | Mailcode: [place] | | | | | | [facility] Health and | | | | | | [facility] 2 | | | | | | [place], [place] | | | | | | [address] | | | | | | [phone] | | | +--------+---------+ + + + [...] of Class: 1055 until 1155 (60 minutes lilh-xq-rhbd with patient) Teaching Methods: PowerPoint and verbal [...] a journal with fluid/protein d. Transportation 7. [facility] 8. Surgical [...] | | | | | [place], [place] | | | | | | [address] | | | | | | [phone] | | | | | | | | +--------+ + + + + documented as of this encounter Visit Diagnoses + + | Diagnosis | + + | Morbid obesity (HCC) - Primary Morbid obesity | + + documented in this encounter"
--- OUTSIDE RECORDS SUMMARY | ~2019-05-23 | XMS | Encounter Summary ---
Demographics + + + | Address | [address] | | | [place] [address] | + + + | Home Phone [...] [place], [place] | | | | | [address] | | + + + + + | Ellie Vang | ECON | Unknown | | + + + + + Care Team Providers + +------+ + | Care Burr Bench Operator Name | Role | Phone | [...] the | | | | | | [address] [facility] | | | | | | [facility] | | | | | | [place], [place] | | | | | | [address] | | | +--------+ + + + [...] | | 2019 | Visit | | [address] | | | | | | [place] [facility] [place] | | | | | | [address] | | | | | | [phone] | | | | | | | | +--------+ + + + + documented as of this encounter Visit Diagnoses Not on filedocumented in this encounter"
--- OUTSIDE RECORDS SUMMARY | ~2019-05-23 | XMS | Encounter Summary ---
Demographics + + + | Address | [address] | | | [place] [address] | + + + | Home Phone [...] [place], [place] | | | | | [address] | | + + + + + | Ellie Vang | ECON | Unknown | | + + + + + Care Team Providers + +------+ + | Care Rotary Soil Stabilizer Operator Name | Role | Phone | [...] | | | 2017 | Event | [facility] | Joann Person MD,PhD | | | | | Admitting Desk | [address] | | | | | Located on the 9 | [facility] [place] | | | | | floor [address] [facility] | [address] | | | | | [address] | [phone] | | | | | [place], [place] | | | | | | [address] | Graham Honeycutt, | | | | | | INSURANCE ADMINISTRATOR [address] | | | | | | [address] | | | | | | [place], [place] | | | | | | [address] | | | | | | [phone] | | | | | | | [...] | | Endotracheal Tube; 7; Oral; | INSURANCE ADMINISTRATOR | INSURANCE ADMINISTRATOR | | | Cuffed; 06/23/18; 1542 | [...] [place] | | | | | | [address] | | | | | | [phone] | | | | | | | [...] bed and dolores for RSI. Performed by INSURANCE ADMINISTRATOR | | | GRAHAM HONEYCUTT | | [...]
--- OUTSIDE RECORDS SUMMARY | ~2019-05-23 | XMS | Encounter Summary ---
Demographics + + + | Address | [address] | | | [place] [address] | + + + | Home Phone [...] [place], [place] | | | | | [address] | | + + + + + | Ellie Vang | ECON | Unknown | | + + + + + Care Team Providers + +------+ + | Care Actuary Name | Role | Phone | + [...] | HA [place] | | | with ELECTRO WINNING OPERATOR | | hypertension | [address] | [address] | | | | | Right | [address] | [address] [place] | | | | | heart | [place], [place] | [place], | | | | | failure | [address] | [place] | | | | | ([facility]) Type | Phone: | [address] | | | | | 2 diabetes | [phone] | | | | | | mellitus | Fax: | | | | | | without | [phone] | | | | | | complication | | | | | | | , with | | | | | | | long-term | | | | | | | current use | | | | | | | of insulin | | | | | | | ([facility]) | | | +--------+ + [...] | [address] | [facility] | (Primary Dx); | | | | Mailcode: Center | [place], [place] | 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[facility] and | [address] | 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, 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) | | | | [place], [place] | | | | | | [address] | | | | | | [phone] | | | +--------+---------+ + + + [...] Follow-Up Patient referred by: Randell Franks MD [address] [place] [address] Documented time of visit: 2:36pm to 2:49 (13 minutes hfrm-hh-tmcl with patient) Surgery: Gastric Bypass Date of [...] Medications since surgery: oral - appt with seismograph observer on the 9th Testing blood glucose: 92 [...] beef, cream of wheat, cream of mushroom, mozambican yogurt Fluid choices: water Supplementation: Flinstones, iron, [...] multivitamin & mineral (with iron) supplement, 2/day -7736-2546 mg calcium citrate with vitamin D/day (take in divided doses, not within 2 hour s of multivitamin or iron supplement) -500 mcg/day sublingual B12 supplement (or monthly injections) Continued to reinforce importance of mindful eating. Continue to increase physical activity. Follow up in 3 months or earlier as needed. Tejas Cevallos RD, LD Pager # [phone] signed by Tejas Cevallos RD at 05/27/2018 [...] | | | | | [place], [place] | | | | | | [address] | | | | | | [phone] | | | | | | | [...]
--- OUTSIDE RECORDS SUMMARY | ~2019-05-23 | XMS | Encounter Summary ---
Demographics + + + | Address | [address] | | | [place] [address] | + + + | Home Phone [...] + | Katalina Padilla | ECON | [address] | | | | | [place], [place] | | | | | [address] | | + + + + + | Ellie Vang | ECON | Unknown | | + + + + + Care Team Providers + +------+ + | Care Priest Name | Role | Phone | + +------+ + | Fadi Goodrich DO | PCP | | + +------+ + Encounter Details +--------+ + + + + | Date | Type | Department | Care Team | Description | +--------+ + + + + | 10/27/ | Telephone | Pain Center at [facility] | Leslie Mistry, | | | 2017 | | Floor [address] | PhD [address] [facility] | | | | | [address] Mailcode: | [address] | | | | | CH15P [place], [place] | | | | | Health and Healing, | [address] | | | | | [facility] | [phone] | | | | | Floor [place], [place] | | | | | | [address] | | | | | | [phone] | | | +--------+ + + + [...] [place] | | | | | | [address] | | | | | | [phone] | | | | | | | | +--------+ + + + + documented as of this encounter Visit Diagnoses Not on filedocumented in this encounter"
--- OUTSIDE RECORDS SUMMARY | ~2019-05-23 | XMS | Encounter Summary ---
Demographics + + + | Address | [address] | | | [place] [address] | + + + | Home Phone [...] [place], [place] | | | | | [address] | | + + + + + | Ellie Vang | ECON | Unknown | | + + + + + Care Team Providers + +------+ + | Care Hazardous Waste Management Specialist Name | Role | Phone [...] | 2015 | | [facility] | MD [address] | | | | | [address] | [address] [place], [place] | | | | | Mailcode: CH9A | [id number] | | | | | [facility] | [phone] | | | | | [facility], | | | | | | [address] | | | | | | [place], [place] | | | | | | [address] | | | | | | [phone] | | | +--------+ + + + [...] [place] | | | | | | [address] | | | | | | [phone] | | | | | | | | +--------+ + + + + documented as of this encounter Visit Diagnoses Not on filedocumented in this encounter"
--- OUTSIDE RECORDS SUMMARY | ~2019-05-23 | XMS | Encounter Summary ---
Demographics + + + | Address | [address] | | | [place] [address] | + + + | Home Phone [...] + | Katalina Padilla | ECON | [address] | | | | | [place], [place] | | | | | [address] | | + + + + + | Ellie Vang | ECON | Unknown | | + + + + + Care Team Providers + +------+ + | Care Asphalt Still Operator Name | Role | Phone [...] | | [address] | Ave [place], [place] | (Primary Dx); | | | | Mailcode: Center | [address] | Ventral hernia | | | | for Health and | [phone] | without obstruction | | | | Healing, Building 2 | | or gangrene; Mixed | | | | [place], [place] | | hyperlipidemia; | | | | [address] | | 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[phone] | | type 2 without | | [...] is doing Refill oxycodone Rx +Take acid wood type finisher for first 3 mos, then wean off [...] to POC and [facility] if any issues. documented in [...] times daily. , Disp: , Rfl: CALCIUM CRB&XHY-H2-JLB17-GENIS ORAL, Take 2 tablets by mouth two [...] Andie Brian Incisional hernia repair 03/01/2015 [facility]/ Dr. Cantu. Primary fascial closure and scar [...] History Narrative Updated 11/09/15 She lives in [place] with her mother and her sister (also her caregiver) lives in an apa rtment/duplex below. She has 2 grandchildren (age 4 and 7) who live with her daughter and son-in-law Her boyfriend lives in [place] HFpEF, DM2, HTN, Sleep Apnea (unable to [...] program here and refer her to our senior benefits specialist who also has expertise in physical [...] Increase torsemide to pre-surgical dose +Take acid wood type finisher for first 3 mos, then wean off [...] she will make an appointment with her Food And Beverage Intern to discuss insulin dosing and CBGs 10. [...] to POC and will [facility] if any issues. Start time 15:35, end time 15:55. I spent a total of 20 minutes face to face with this pat ient. Over 50% of visit was in counseling. ~ 10 minutes of additional time spent reviewing chart prior to visit and documenting after this visit. Ronna Clarke DNP ACNP DIRECTOR BIOSTATISTICS Bariatric Surgery Nurse Practitioner [facility] | [address] | [place], [place] | [address] | documented in this e ncounter Plan [...] [place] | | | | | | [address] | | | | | | [phone] | | | | | | | [...] | | cells No organisms seen | [place] | + + + + + + + + | Performing | Address | City/State/Zipcode | Phone Number | | Organization | | | | + + + + + | [facility] | [address] | [place] [address] | | | [facility] | | | | + + + [...]
--- OUTSIDE RECORDS SUMMARY | ~2019-05-23 | XMS | Encounter Summary ---
Demographics + + + | Address | [address] | | | [place] [address] | + + + | Home Phone [...] [place], [place] | | | | | [address] | | + + + + + | Ellie Vang | ECON | Unknown | | + + + + + Care Team Providers + +------+ + | Care Tool Polisher Name | Role | Phone | [...] + + | 03/01/ | Hospital | [facility] [address] | Ion Castanon, | | | 2018 - | Encounter | [address] | [address] | | | | | [place], [place] | [place], [place] | | | 03/03/ | | [address] | [address] | | | 2017 | | [phone] | [phone] | | | | | | | [...] 03/03/2018 9:49 AM PDT [facility] RED SURGERY INPATIENT DISCHARGE SUMMARY [...] at minimum. 5. Follow with PCP for Filenet Admin within 1 - 2 weeks of discharge [...] mg by mouth two times daily. CALCIUM CRB&HDC-F0-POY06-GENIS ORAL Take 2 tablets by mouth two [...] or Kefir, [place]oney[place] Yogurt, and Chioban i Montserratian Yogurt are common brands with beneficial probiotics. [...] are available over the counter at most [facility] [employer] stores. Nausea/Vomiting/Difficulty Swallowing Nausea/Vomiting/Difficulty swallowing: Could be [...] hours per your instructions. Some medications, like Zion, have Tylenol in it. Make sure you [...] hours by calling the surgery office at [phone]. - After hours, weekends and holidays, you may call the hospital gang ripsaw operator at [phone] an d have the e commerce solution architect Red Surgery Team paged. OTHER DISCHARGE ORDERS [...] at minimum. 5. Follow with PCP for Filenet Admin within 1 - 2 weeks of discharge [...] Department Dept Phone Center 03/10/2018 1:30 PM [facility] 6th Floor [phone] FO OD AND NUT 03/10/2018 3:05 PM [facility] at [facility] 6th Floor [phone] [facility] 04/01/2018 10:30 AM [facility] at [facility] 6th Floor [phone] FO OD AND NUT 04/01/2018 11:00 AM Ion Castanon [facility] at [facility] 6th Floor [phone] [facility] 05/27/2018 2:30 PM [facility] at [facility] 6th Floor [phone] FO OD AND NUT 05/27/2018 3:05 PM [facility] at [facility] 6th Floor [phone] [facility] 05/27/2018 4:30 PM [facility] at [facility] 15th Floor [phone] Comprehensiv 06/04/2018 10:35 AM Randell Franks Cardiology Preventive at [facility] [phone] Cardiology Discharging Physician: KAIN Agee Attending Physician: Ion Castanon MD [facility] Surgery Pager# [phone] 9:50 AM 03/03/2018 documented in this enco [...] | | 0 | | | | CRB&IVC-L1-RDP73-GEN | mouth two times | | | [...] date of discharge 03/03/18 PARTHA Calixto MS3 [facility] Demarcus Menon MD - [...] for care ride home (pt lives in [place]) Demarcus Alas M.D. General Surgery Resident PGY-1 Pager: [phone] Ion Ferrari MD - 10:00 AM PDTI [...] | | 2019 | Visit | | [address] | | | | | | [place], [place] | | | | | | [address] | | | | | | [phone] | | | | | | | [...] | PDT | over, adult ([facility]) | results section. | + +--------+ + + + | CAPILLARY BLOOD | Routin | 03/03/2018 | Morbid obesity | Results for this | | GLUCOSE (NO CHG), | e | 7:54 AM | with BMI of 70 and | procedure are in the | | POC | | PDT | over, adult ([facility]) | results section. | + +--------+ + + + | CAPILLARY BLOOD | Routin | 03/03/2018 | Morbid obesity | Results for this | | GLUCOSE (NO CHG), | e | 6:28 AM | with BMI of 70 and | procedure are in the | | POC | | PDT | over, adult ([facility]) | results section. | + +--------+ + + + | CAPILLARY BLOOD | Routin | 03/02/2018 | Morbid obesity | Results for this | | GLUCOSE (NO CHG), | e | 9:17 PM | with BMI of 70 and | procedure are in the | | POC | | PDT | over, adult ([facility]) | results section. | + +--------+ + + + | CAPILLARY BLOOD | Routin | 03/02/2018 | Morbid obesity | Results for this | | GLUCOSE (NO CHG), | e | 6:50 PM | with BMI of 70 and | procedure are in the | | POC | | PDT | over, adult ([facility]) | results section. | + +--------+ + + + | CAPILLARY BLOOD | Routin | 03/02/2018 | Morbid obesity | Results for this | | GLUCOSE (NO CHG), | e | 3:46 PM | with BMI of 70 and | procedure are in the | | POC | | PDT | over, adult ([facility]) | results section. | + +--------+ + + + | CAPILLARY BLOOD | Routin | 03/02/2018 | Morbid obesity | Results for this | | GLUCOSE (NO CHG), | e | 2:36 PM | with BMI of 70 and | procedure are in the | | POC | | PDT | over, adult ([facility]) | results section. | + +--------+ + + + | CAPILLARY BLOOD | Routin | 03/02/2018 | Morbid obesity | Results for this | | GLUCOSE (NO CHG), | e | 1:33 PM | with BMI of 70 and | procedure are in the | | POC | | PDT | over, adult ([facility]) | results section. | + +--------+ + + + | CAPILLARY BLOOD | Routin | 03/02/2018 | Morbid obesity | Results for this | | GLUCOSE (NO CHG), | e | 11:36 AM | with BMI of 70 and | procedure are in the | | POC | | PDT | over, adult ([facility]) | results section. | + +--------+ + + + | CAPILLARY BLOOD | Routin | 03/02/2018 | Morbid obesity | Results for this | | GLUCOSE (NO CHG), | e | 10:32 AM | with BMI of 70 and | procedure are in the | | POC | | PDT | over, adult ([facility]) | results section. | + +--------+ + + + | CAPILLARY BLOOD | Routin | 03/02/2018 | Morbid obesity | Results for this | | GLUCOSE (NO CHG), | e | 9:23 AM | with BMI of 70 and | procedure are in the | | POC | | PDT | over, adult ([facility]) | results section. | + +--------+ + + + | CAPILLARY BLOOD | Routin | 03/02/2018 | Morbid obesity | Results for this | | GLUCOSE (NO CHG), | e | 8:36 AM | with BMI of 70 and | procedure are in the | | POC | | PDT | over, adult ([facility]) | results section. | + +--------+ + + + | CAPILLARY BLOOD | Routin | 03/02/2018 | Morbid obesity | Results for this | | GLUCOSE (NO CHG), | e | 7:35 AM | with BMI of 70 and | procedure are in the | | POC | | PDT | over, adult ([facility]) | results section. | + +--------+ + + + | CAPILLARY BLOOD | Routin | 03/02/2018 | Morbid obesity | Results for this | | GLUCOSE (NO CHG), | e | 6:33 AM | with BMI of 70 and | procedure are in the | | POC | | PDT | over, adult ([facility]) | results section. | + +--------+ + + + | CAPILLARY BLOOD | Routin | 03/02/2018 | Morbid obesity | Results for this | | GLUCOSE (NO CHG), | e | 5:28 AM | with BMI of 70 and | procedure are in the | | POC | | PDT | over, adult ([facility]) | results section. | + +--------+ + + + | CAPILLARY BLOOD | Routin | 03/02/2018 | Morbid obesity | Results for this | | GLUCOSE (NO CHG), | e | 4:36 AM | with BMI of 70 and | procedure are in the | | POC | | PDT | over, adult ([facility]) | results section. | + +--------+ + + + | CAPILLARY BLOOD | Routin | 03/02/2018 | Morbid obesity | Results for this | | GLUCOSE (NO CHG), | e | 2:46 AM | with BMI of 70 and | procedure are in the | | POC | | PDT | over, adult ([facility]) | results section. | + +--------+ + + + | CAPILLARY BLOOD | Routin | 03/02/2018 | Morbid obesity | Results for this | | GLUCOSE (NO CHG), | e | 12:32 AM | with BMI of 70 and | procedure are in the | | POC | | PDT | over, adult ([facility]) | results section. | + +--------+ + + + | CAPILLARY BLOOD | Routin | 03/01/2018 | Morbid obesity | Results for this | | GLUCOSE (NO CHG), | e | 10:31 PM | with BMI of 70 and | procedure are in the | | POC | | PDT | over, adult ([facility]) | results section. | + +--------+ + + + | CAPILLARY BLOOD | Routin | 03/01/2018 | Morbid obesity | Results for this | | GLUCOSE (NO CHG), | e | 8:21 PM | with BMI of 70 and | procedure are in the | | POC | | PDT | over, adult ([facility]) | results section. | [...] | PDT | over, adult ([facility]) | results section. | + +--------+ + + + | CAPILLARY BLOOD | Routin | 03/01/2018 | Morbid obesity | Results for this | | GLUCOSE (NO CHG), | e | 3:31 PM | with BMI of 70 and | procedure are in the | | POC | | PDT | over, adult ([facility]) | results section. | + +--------+ + + + | CAPILLARY BLOOD | Routin | 03/01/2018 | Morbid obesity | Results for this | | GLUCOSE (NO CHG), | e | 3:29 PM | with BMI of 70 and | procedure are in the | | POC | | PDT | over, adult ([facility]) | results section. | + +--------+ + + + | CAPILLARY BLOOD | Routin | 03/01/2018 | Morbid obesity | Results for this | | GLUCOSE (NO CHG), | e | 2:30 PM | with BMI of 70 and | procedure are in the | | POC | | PDT | over, adult ([facility]) | results section. | + +--------+ + + + | CAPILLARY BLOOD | Routin | 03/01/2018 | Morbid obesity | Results for this | | GLUCOSE (NO CHG), | e | 1:35 PM | with BMI of 70 and | procedure are in the | | POC | | PDT | over, adult ([facility]) | results section. | + +--------+ + + + | CAPILLARY BLOOD | Routin | 03/01/2018 | Morbid obesity | Results for this | | GLUCOSE (NO CHG), | e | 12:16 PM | with BMI of 70 and | procedure are in the | | POC | | PDT | over, adult ([facility]) | results section. | [...] | PDT | over, adult ([facility]) | results section. | + +--------+ + + + | LAPAROSCOPIC | Electi | 03/01/2018 | Morbid obesity | | | NISH-EN-Y GASTRIC | ve | 8:31 AM | ([facility]) | | | BYPASS | Surgic | [...] [facility] | [address] | [place], [place] | | | [facility] | [address] | [address] | | | TESTS | | | [...] - [facility] | [address] | [place], [place] | | | [facility] | [facility] | [address] | | | TESTS | | | [...] [facility] | [address] | [place], [place] | | | [facility] | [address] | [address] | | | TESTS | | | [...] [facility] | [address] | [place], [place] | | | [facility] | [address] | [address] | | | TESTS | | | [...] [facility] | [address] | [place], [place] | | | [facility] | [facility] | [address] | | | TESTS | | | [...] (H) | 70 - 99 mg/dL | [facility] | [address] | [place], [place] | | | [facility] | [address] | [address] | | | TESTS | | | [...] [facility] | [address] | [place], [place] | | | [facility] | [address] | [address] | | | TESTS | | | [...] [facility] | [address] | [place], [place] | | | [facility] | [facility] | [address] | | | TESTS | | | [...] (H) | 70 - 99 mg/dL | [facility] | [address] | [place], [place] | | | [facility] | [address] | [address] | | | TESTS | | | [...] + + | Performing | Address | City/State[facility] | Phone Number | | Organization | | | | + + + + + | [facility] | [address] | [place], [place] | | | [facility] | [address] | [address] | | | TESTS | | | [...] [facility] | [address] | [place], [place] | | | [facility] | [facility] | [address] | | | TESTS | | | [...] (H) | 70 - 99 mg/dL | [facility] [...] [facility] | [address] | [place], [place] | | | [facility] | [address] | [address] | | | TESTS | | | [...] + + | Performing | Address | City/State/[facility] | Phone Number | | Organization | | | | + + + + + | [facility] | [address] | [place], [place] | | | [facility] | [facility] | [address] | | | TESTS | | | [...] [facility] | [address] | [place], [place] | | | [facility] | [facility] | [address] | | | TESTS | | | [...] (H) | 70 - 99 mg/dL | [facility] [...] [facility] | [address] | [place], [place] | | | [facility] | [address] | [address] | | | TESTS | | | [...] AMES | [address] | [place], [place] | | | [facility] | [facility] | [address] | | | TESTS | | | [...] [facility] | [address] | [place], [place] | | | [facility] | [facility] | [address] | | | TESTS | | | [...] (H) | 70 - 99 mg/dL | [facility] [...] [facility] | [address] | [place], [place] | | | [facility] | [address] | [address] | | | TESTS | | | [...] AMES | [address] | [place], [place] | | | [facility] | [facility] | [address] | | | TESTS | | | [...] - [facility] | [address] | [place], [place] | | | [facility] | [facility] | [address] | | | TESTS | | | [...] (H) | 70 - 99 mg/dL | [facility] [...] [facility] | [address] | [place], [place] | | | [facility] | [address] | [address] | | | TESTS | | | [...] + + | Performing | Address | City/State/[facility] | Phone Number | | Organization | | | | + + + + + | [facility] | [address] | [place], [place] | | | [facility] | [facility] | [address] | | | TESTS | | | [...] [facility] | [address] | [place], [place] | | | [facility] | [facility] | [address] | | | TESTS | | | [...] (H) | 70 - 99 mg/dL | [facility] [...] [facility] | [address] | [place], [place] | | | [facility] | [address] | [address] | | | TESTS | | | [...] AMES | [address] | [place], [place] | | | [facility] | [facility] | [address] | | | TESTS | | | [...] [facility] | [address] | [place], [place] | | | [facility] | [address] | [address] | | | TESTS | | | | + + + + + EGD (ESOPHAGOGASTRODUODENOSCOPY) (03/01/2018 11:21 AM PDT) + + + | Narrative | Performed At | + + + | Ion Castanon MD 03/01/2018 12:25 PM Date of Procedure: | | | 03/01/18 Primary Surgeon: Ion Castanon MD Co Surgeon or | | | healthcare administrative assistant: Eldon Gonzalez MD, Chief Resident [...] The jejunum was divided with 60 mm [place] stapler with white | | | load [...] created in each limb and a 60mm [place] stapler | | | with white load was fired to create a [id number] | | | jejunojejunostomy. The anastamosis was confirmed to be widely | | | patent and hemostatic. The common enterotomy was closed by placing | | | 2 stay sutures along the enterotomy for retraction and firing an | | | [place] 60mm stapler with white load across the [...] | | | was entered. The 60mm [place] stapler with blue load was placed | [...] blue load of the 60mm stapler. The [place] was then fired | | | longitudinally towards the angle of His to create the gastric pouch, | | | leaving the gastrotomy from foreign body removal, on the pouch. | | | Dissection was performed retrogastric to connect posterior and | | | anterior dissection planes and ensure adequate fundus exclusion. | | | Additional fires of the [place] stapler were performed with blue | | [...] with | | | 5 mm clip rcis. A 25mm Orvil was passed transorally by [...] was closed with 60mm | | | [place] stapler with a white load. Medially and [...] was present | | | as my healthcare administrative assistant for the entire procedure, given the technically | | | challenging nature of this procedure. She assisted in all critical | | | steps of the procedure. Dr. Gonzalez was present for endoscopy at the | | | end of the procedure. Ion Castanon MD, FACS, [facility] | | | Bariatric Surgery | | [...] MD Co Surgeon or | | | healthcare administrative assistant: Eldon Gonzalez MD, Chief Resident [...] The jejunum was divided with 60 mm [place] stapler with white | | | load [...] created in each limb and a 60mm [place] stapler | | | with white load was fired to create a [id number] | | | jejunojejunostomy. The anastamosis was confirmed to be widely | | | patent and hemostatic. The common enterotomy was closed by placing | | | 2 stay sutures along the enterotomy for retraction and firing an | | | [place] 60mm stapler with white load across the [...] | posterior to the nish limb. A SED Web liver retractor was | | | placed [...] | | | was entered. The 60mm [place] stapler with blue load was placed | [...] blue load of the 60mm stapler. The [place] was then fired | | | longitudinally towards the angle of His to create the gastric pouch, | | | leaving the gastrotomy from foreign body removal, on the pouch. | | | Dissection was performed retrogastric to connect posterior and | | | anterior dissection planes and ensure adequate fundus exclusion. | | | Additional fires of the [place] stapler were performed with blue | | [...] with | | | 5 mm clip rcis. A 25mm Orvil was passed transorally by [...] was closed with 60mm | | | [place] stapler with a white load. Medially and [...] was present | | | as my healthcare administrative assistant for the entire procedure, given the technically | | | challenging nature of this procedure. She assisted in all critical | | | steps of the procedure. Dr. Gonzalez was present for endoscopy at the | | | end of the procedure. Ion Castanon MD, FACS, [facility] | | | Bariatric Surgery | | [...] [facility] | [address] | [place], [place] | | | [facility] | [facility] | [address] | | | TESTS | | | [...]
--- OUTSIDE RECORDS SUMMARY | ~2019-05-23 | XMS | Encounter Summary ---
Demographics + + + | Address | [address] | | | [place] [address] | + + + | Home Phone [...] + | Katalina Padilla | ECON | [address] | | | | | [place], [place] | | | | | [address] | | + + + + + | Ellie Vang | ECON | Unknown | | + + + + + Care Team Providers + +------+ + | Care Pharmacy Grad Intern Name | Role | Phone | [...] | LAPAROSCOPIC | | 2013 | | [facility] | [address] | CHOLECYSTECOMY WITH | | | | Admitting Desk | Clarence Gutiérrez [place], | INTRA-OP | | | | Located on the | [place] [address] | CHOLANGIOGRAM | | | | floor [address] | [phone] | | | | | [address] | | | | | | [place], [place] | | | | | | [address] | | | +--------+---------+ + + + [...] the resident s note. PRADIP STARR MD [facility] [address] [facility] [place] [address] orrest, Maryam Yu MD - 1:05 PM PDT FOR[facility]LY [facility] DEPARTMENT OF SURGERY EMERGENCY GENERAL SURGERY Division of Trauma and Critical Care INPATIENT PROVIDER DISCHARGE SUMMARY Note Date: 02/08/2014 Admission Date: 02/07/2014 DYLAN ROMERO, Discharge Date: 08 Feb 2014 PCP: Fadi Goodrich DO Attending Physician: Milana Landaverde MD Author: MARYAM RHODES MD HPI: Dylan Romero is a 38 y.o. Female with morbid obesity, bipolar disorder and Type 2 DM who presented to the [facility] ED ([place], [place]) on 02/06/14, with a week hi story of RUQ abdominal pain that radiates to her back. There, she was found to have leukocyt osis and multiple tiny, mobile stones, + sonographic Peterson's sign on abdominal ultrasound, concerning for acute cholecystitis. She was givenIV antibiotics (cipro, flagyl) and pain med s, then transferred to [facility] by [facility] for further [...] up with Trauma Emergency General Surgery at [facility] In 4 weeks. (follow up in 2-4 weeks ) Contact information [address] [facility] Mailcode: L223a [facility] [place] [address] Thank you for the [...] the resident s note. PRADIP STARR MD [facility] [address] [place] [id number] orrest, Maryam Yu MD - 5:17 AM PDT [facility] DEPARTMENT OF SURGERY EMERGENCY GENERAL SURGERY Division [...] tolerated MARYAM RHODES MD PGY-1, General Surgery [phone] pager number [facility] [address] [place] [facility] [place] [address] documented in this encoun ter Plan of [...] | | 2019 | Visit | | [address] | | | | | | [place], [place] | | | | | | [address] | | | | | | [phone] | | | | | | | [...] MARQUAM | [address] | [place], [place] | | | JUSTINE DAWN OF CARE | [address] | [address] | | | TESTS | | | [...] YAKOVAM | [address] | [place], [place] | | | LÓPEZ POINT OF CARE | [address] | [address] | | | TESTS | | | [...] AMES | [address] | [place], [place] | | | JUSTINE DAWN OF JAKY | [address] | [address] | | | TESTS | | | [...] MARQUAM | [address] | [place], [place] | | | JUSTINE DAWN OF CARE | [address] | [address] | | | TESTS | | | [...] LABORATORY | [address] | [place] [address] | | | SERVICES, | [address] [...] [facility] | [address] | [place] [address] | | | SERVICES, | [address] [...] MARQUAM | [address] | [place], [place] | | | L[place]PEZ POINT OF CARE | [facility] | [address] | | | TESTS | | | [...] | + + + + + | [facility] LABORATORY | [address] | [place] [address] | | | SERVICES, CORE | [address] [...] [facility] | [address] | [place] [address] | | | SERVICES, CORE | [address]ARENCE [...] | + + + + + | [facility] [employer] | [address] | [place] [address] | | | SERVICES, CORE | [address] | | | + + + + + MAGNESIUM, PLASMA (02/07/2014 6:32 AM PDT) + +---------+ + + + | Component | Value | Ref Range | Performed | Pathologist | | | | | At | Signature | + +---------+ + + + | MAGNESIUM,P | 1.6 (L) | 1.8 - 2.5 mg/dL | [facility] | | | LASMA [...] | + + + + + | [facility] LABORATORY | [address] | [place] [address] | | | SERVICES, CORE | [address] [...] | | | LABORATORY | | | TANZANIAN | | | SERVICES, | | | [...] [facility] | [address] | [place] [address] | | | SERVICES, CORE | [address] [...] MARQUAM | [address] | [place], [place] | | | JUSTINE DAWN OF CARE | [address] | [address] | | | TESTS | | | [...] pattern. | | | | | | [facility] | | | | | | sections [...] FOR CHIL[facility] | [address] | [place] [address] | | | PATHOLOGY | [address] [...]
--- OUTSIDE RECORDS SUMMARY | ~2019-05-23 | XMS | Encounter Summary ---
Demographics + + + | Address | [address] | | | [place] [address] | + + + | Home Phone [...] [place], [place] | | | | | [address] | | + + + + + | Ellie Vang | ECON | Unknown | | + + + + + Care Team Providers + +------+ + | Care Banana Ripening Room Supervisor Name | Role | Phone [...] | Pain | Diagnoses | Analisa Georges Director Enterprise Sales Psych | | | | Management | Morbid | DANIELLE BrunerP | [address] | | | | | obesity with | [address] | | | | | BMI of [address] | [address] | Mailcode: | | | | | and over, | [place], [place] | [facility] Center | | | | | adult (HCC) | [address] | for Health | | | | | Procedures | Phone: | and Healing, | | | | | CONSULT TO | [phone] | Building 1, | | | | | PAIN | Fax: | 15th Floor | | | | | MANAGEMENT | [phone] | [place], [place] | | | | | [place] | | [address] | | | | | PSYCHIATRIC | | Phone: | | | | | DIAGNOSTIC | | [phone] | | | | | EVAL, NO MED | | Fax: | | | | | [facility] [place] | | [phone] | | | | | PSYCH TSTNG [...] | Bariatri Surg | | | with HEAD UP OPERATOR HELPER | | hypertension | [address] | [address] | | | | | Right | [address] | [address] | | | | | heart | [place], [place] | Mailcode: | | | | | failure | [address] | Center for | | | | | ([facility]) Type | Phone: | Health and | | | | | 2 diabetes | [phone] | Healing, | | | | | mellitus | Fax: | Building 2 | | | | | without | [phone] | [place], [place] | | | | | complication | | [address] | | | | | , with | | Phone: | | | | | long-term | | [phone] | | | | | current use | | Fax: | | | | | of insulin | | [phone] | | | | | ([facility]) | | | | [...] | | [address] | Ave [place], [place] | adult ([facility]) (Primary | | | | Mailcode: Center | [address] | Dx); Chronic | | | | for Health and | | diastolic heart | | | | Healing, Building 2 | | failure ([facility]); | | | | [place], [place] | | Immobility; Severe | | | | [address] | | muscle | | | | [...] retinopathy | | | | | | ([facility]); | | | | | [...] encounter Patient Instructions Patient Instructions Shereen Georges, [facility] - 02/02/2017 9:00 AM PDTPlan: The following [...] to your private appointme nt with the electronic coils supervisor. These classes will be scheduled apporoximately 1 month apart to allow time for you to put the teaching into action. Please call [phone] + Labs needed: Pre op: drug screen [...] are done + EKG: Please Have your crew person do the eval and send it to us + Pre-op Psychological Evaluation: Your referral is at [facility], The Pain Management Office will call you [...] be safely completed. + Sign up for TensorComm so that we can communicate easily back and forth Once the above list is completed and copies have been received by our office, we will submi t for insurance authorization then schedule with the surgeon. KAIN De Dios DNP, GAS MAKER HELPER Nurse Practitioner for Bariatric Surgery [facility] | [address] | [place], [place] | [address] | documented in this encounter Progress Notes Shereen Georges ACNP - 02/02/2017 9:00 AM PDTFormatting of this note might be different f rom the original. BARIATRIC INITIAL VISIT Provider: Shereen Pinto DNP, KAIN, GAS MAKER HELPER Referring Provider: Fadi Goodrich DO Reason for [...] t loss. Consults: Cardiology: Dr. Edson [facility] Carpenter Helper: Nickie : [facility] Paula But comes to magen Head Up Operator Helper at [facility]: Dr. Zhong for weight loss medication Pentecostalism or cultural reason you would refuse blood [...] once daily., Disp : , Rfl: CALCIUM [id number] ORAL, Take 2 tablets by mouth two [...] vagina Allergic rhinitis Anemia Anxiety Bipolar disorder ([facility]) Chronic wound infection of abdomen from 2010 Cough Depression Diverticulitis of colon Dizziness Glaucoma Heart burn Hemorrhoids Hernia of abdominal wall Incisional hernia, incarcerated 2012 Insomnia Irregular periods Kidney stone Leaking of urine Leg sore Lymphedema Morbid obesity with body mass index of 70 and over in adult ([facility]) Myalgia and myositis Nausea Neck pain Numbness Osteoarthritis of knee Palpitations Pneumonia Shortness of breath Staphylococcal infection Stroke ([facility]) TIA (transient ischemic attack) due [...] History Narrative Updated 11/09/15 She lives in [place] with her mother and her sister (also her caregiver) lives in an [facility]. She has 2 grandchildren (age 4 and 7) who live with her daughter and son-in-law Her boyfriend lives in [place] Family History Problem Relation Heart Attack Father [...] extre mity edema, hypertension, hyperlipidemia. Denies CHF, DC, ischemic heart disease, or pulmon nikki hypertension. [...] years without success. She qual[facility] to control co-morbidities. [...] management, and was referred as well to python django developer. Plan: Request that her crew person clear her, and make recommendations 3. Mammogram: [...] to your private appointme nt with the electronic coils supervisor. These classes will be scheduled apporoximately 1 month apart to allow time for you to put the teaching into action. Please call [phone] + Labs needed: lipids, CBC, CMP, TSH, [...] are done + EKG: Please Have your crew person do the eval and send it to us + Pre-op Psychological Evaluation: Your referral is at [facility], The Pain Management Office will call you [...] be safely completed. + Sign up for TensorComm so that we can communicate easily back and forth Once the above list is completed and copies have been received by our office, we will submi t for insurance authorization then schedule with the surgeon. KAIN De Dios DNP, GAS MAKER HELPER Nurse Practitioner for Bariatric Surgery [facility] | [address] | [place], [place] | [address] | documented in this encounter Plan of [...] | | | | | [place], [place] | | | | | | [address] | | | | | | [phone] | | | | | | | [...]
--- OUTSIDE RECORDS SUMMARY | ~2019-05-23 | XMS | Encounter Summary ---
Demographics + + + | Address | [address] | | | [place] [address] | + + + | Home Phone [...] [place], [place] | | | | | [address] | | + + + + + | Ellie Vang | ECON | Unknown | | + + + + + Care Team Providers + +------+ + | Care Logistics Manager Name | Role | Phone | [...] Encounter, Provider, | | | | | [facility] | MD [address] | | | | | [address] | [place] [address] | | | | | Mailcode: OC2L | | | | | | [facility] | | | | | | and Healing, | | | | | | Building [address] | | | | | | [place], [place] | | | | | | [address] | | | | | | [phone] | | | +--------+ + + + [...] | | | | | [place], [place] | | | | | | [address] | | | | | | [phone] | | | | | | | | +--------+ + + + + documented as of this encounter Results EGD (04/07/2019 10:53 AM PDT) + + | Specimen | + + | | + + + + + | Narrative | Performed At | + + + | MRN: | [facility] | | [id number] Date: 04/07/2019Patient Name: Elzbieta Curtis #: | ENDOSCOPY | | [id number] of : 1975CSN: [id number] Type: | | | AmbulatoryRoom: Endo 5Procedure: Upper GI | | | endoscopyIndications: Generalized abdominal pain, Nausea | | | with vomitingProviders: TAL LUND MD | | | (Doctor), BERNARDO BERNARD RN (Nurse), | | | [employer] (Public Transit Trolley Driver)Referring MD: SYLVIA Kilpatrick | | | KENNY [...] | | | The [employer] [id number] Endoscope #[id number] | | | was introduced through the [...]
--- OUTSIDE RECORDS SUMMARY | ~2019-05-23 | XMS | Encounter Summary ---
Demographics + + + | Address | [address] | | | [place] [address] | + + + | Home Phone [...] [place], [place] | | | | | [address] | | + + + + + | Ellie Vang | ECON | Unknown | | + + + + + Care Team Providers + +------+ + | Care Grinding And Spraying Supervisor Name | Role | Phone | [...] | [address] | Ave [place], [place] | | | | | Mailcode: CH9A | [address] | | | | | [facility] | [phone] | | | | | and Healing, | | | | | | Building [address] | | | | | | [place], [place] | | | | | | [address] | | | | | | [phone] | | | +--------+ + + + [...] [place] | | | | | | [address] | | | | | | [phone] | | | | | | | | +--------+ + + + + documented as of this encounter Visit Diagnoses Not on filedocumented in this encounter"
--- OUTSIDE RECORDS SUMMARY | ~2019-05-23 | XMS | Encounter Summary ---
Demographics + + + | Address | [address] | | | [place] [address] | + + + | Home Phone [...] [place], [place] | | | | | [address] | | + + + + + | Ellie Vang | ECON | Unknown | | + + + + + Care Team Providers + +------+ + | Care Heavy Equipment Plumbing Supervisor Name | Role | Phone | [...] | | | | | | [place] [address] | | | +--------+ + + + [...] | | 2019 | Visit | | [address] | | | | | | [place] [facility] [place] | | | | | | [address] | | | | | | [phone] | | | | | | | | +--------+ + + + + documented as of this encounter Visit Diagnoses Not on filedocumented in this encounter"
--- OUTSIDE RECORDS SUMMARY | ~2019-05-23 | XMS | Encounter Summary ---
Demographics + + + | Address | [address] | | | [place] [address] | + + + | Home Phone [...] [place], [place] | | | | | [address] | | + + + + + | Ellie Vang | ECON | Unknown | | + + + + + Care Team Providers + +------+ + | Care Fish Egg Packer Name | Role | Phone | + +------+ + | Fadi Goodrich DO | PCP | | + +------+ + Encounter Details +--------+------+ + + + | Date | Type | Department | Care Team | Description | +--------+------+ + + + | 05/27/ | Lab | Laboratory at [facility] | | History of Frandy-en-Y | | 2017 | | [address] | | gastric bypass; | | | | [place], [place] | | Ventral hernia | | | | [address] | | without obstruction | | | | [phone] | | or gangrene; Mixed | | [...] | | 2018 | Visit | | [address] | | | | | | [place], [place] | | | | | | [address] | | | | | | [phone] | | | | | | | [...] | | e | 4:01 PM | Franyd-en-Y gastric | procedure are [...] | + + + + + | [employer] [facility] | [address] | [place] [address] | | | SERVICES, CORE | CLARENCE [...] + + | [facility] | [address] | [place] [address] | | | SERVICES, CORE | [address] [...] | [facility] | [address] | [place] [address] | | | SERVICES, SPECIAL | CLARENCE [...] | | | | | determined by [facility] | | | | | | Laboratories. See | | | | | | Compliance Statement B: | | | | | | [employer]/CSP[employer]formed | | | | | | by [employer],[address] | | | | | | [place]iana [place], [place] | | | | | | [address] | | | | | | [phone].[employer]. | | | | | | comIsmael [...] [facility] | [address] | [place], [place] | | | UNIV P[facility] - INTFC | | [address] | | + + + + + [...] | | | LABORATORY | | | GHANAIAN | | | SERVICES, | | | [...] + + | [facility] | [address] | [place] [address] | | | CLAIRE, LYDIA | CLARENCE [...] | + + + + + | [facility] | [address] | [place] [address] | | | SERVICES, CORE | CLARENCE [...] [facility] | [address] | [place] [address] | | | SERVICES, CORE | CLARENCE [...] | [facility] | [address] | [place] [address] | | | SERVICES, CORE | CLARENCE [...] [facility] | [address] | [place] [address] | | | SERVICES, CORE | PARK [...] [facility] | [address] | [place] [address] | | | SERVICES, CORE | PARK [...]
--- OUTSIDE RECORDS SUMMARY | ~2019-05-23 | XMS | Encounter Summary ---
Demographics + + + | Address | [address] | | | [place] [address] | + + + | Home Phone [...] [place], [place] | | | | | [address] | | + + + + + | Ellie Vang | ECON | Unknown | | + + + + + Care Team Providers + +------+ + | Care Vp Clinical Research Name | Role | Phone | + [...] | | | | | | [place] [address] | | | +--------+ + + + [...] [place] | | | | | | [address] | | | | | | [phone] | | | | | | | | +--------+ + + + + documented as of this encounter Visit Diagnoses Not on filedocumented in this encounter"
--- OUTSIDE RECORDS SUMMARY | ~2019-05-23 | XMS | Encounter Summary ---
Demographics + + + | Address | [address] | | | [place] [address] | + + + | Home Phone [...] [place], [place] | | | | | [address] | | + + + + + | Ellie Vang | ECON | Unknown | | + + + + + Care Team Providers + +------+ + | Care Sales Correspondence Clerk Name | Role | Phone | + +------+ + | Fadi Goodrich DO | PCP | | + +------+ + Reason for Visit + + + | Reason | Comments | + + + | Medical Records | Letter from case advocate. | | Review | | + + + Encounter Details +--------+ + + + + | Date | Type | Department | Care Team | Description | +--------+ + + + + | 11/08/ | Abstract | Digestive Health | Shereen Georges, | Medical Records | | 2015 | | Center at [facility] [address] | [facility] [address] | Review (Letter from | | | | [address] | [place], [place] | case advocate. ) | | | | Mailcode: [place] | [address] | | | | | [facility] and | [phone] | | | | | [place] [address] | | | | | | [place], [place] | | | | | | [address] | | | | | | [phone] | | | +--------+ + + + [...] | | | | | [place], [place] | | | | | | [address] | | | | | | [phone] | | | | | | | | +--------+ + + + + documented as of this encounter Visit Diagnoses Not on filedocumented in this encounter"
--- OUTSIDE RECORDS SUMMARY | ~2019-05-23 | XMS | Encounter Summary ---
Demographics + + + | Address | [address] | | | [place] [address] | + + + | Home Phone [...] [place], [place] | | | | | [address] | | + + + + + | Ellie Vang | ECON | Unknown | | + + + + + Care Team Providers + +------+ + | Care Cripple Worker Name | Role | Phone | + +------+ + | Fadi Goodrich DO | PCP | | + +------+ + Encounter Details +--------+ + + + + | Date | Type | Department | Care Team | Description | +--------+ + + + + | 06/09/ | Abstract | Cardiology | Randell Franks, | | | 2015 | | Preventive at [facility] | MD [address] | | | | | [address] | Ave [place], [place] | | | | | Mailcode: CH9A | [address] | | | | | [facility] | [phone] | | | | | and Healing, | | | | | | Building [address] | | | | | | [place], [place] | | | | | | [address] | | | | | | [phone] | | | +--------+ + + + [...] [place] | | | | | | [address] | | | | | | [phone] | | | | | | | | +--------+ + + + + documented as of this encounter Visit Diagnoses Not on filedocumented in this encounter"
--- OUTSIDE RECORDS SUMMARY | ~2019-05-23 | XMS | Encounter Summary ---
Demographics + + + | Address | [address] | | | [place] [address] | + + + | Home Phone [...] + | Katalina Padilla | ECON | [address] | | | | | [place], [place] | | | | | [address] | | + + + + + | Ellie Vang | ECON | Unknown | | + + + + + Care Team Providers + +------+ + | Care Paper Stripper Name | Role | Phone | [...] | [address] | | | with BREAKER HAND | | hypertension | [address] | [address] | | | | | Right | [address] | [place] | | | | | heart | [place], [place] | [place], | | | | | failure | [address] | [place] | | | | | ([facility]) Type | Phone: | [address] | | | | | 2 diabetes | [phone] | | | | | | mellitus | Fax: | | | | | | without | [phone] | | | | | | complication | | | | | | | , with | | | | | | | long-term | | | | | | | current use | | | | | | | of insulin | | | | | | | ([facility]) | | | +--------+ + [...] | | | [address] | [address] | (Primary Dx); | | | | Mailcode: Center | [place], [place] | 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, 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) | | | | [place], [place] | | | | | | [address] | | | | | | [phone] | | | +--------+---------+ + + + [...] Follow-Up Patient referred by: Randell Franks MD [address] [place] [address] Documented time of visit: 2:36pm to 2:49 (13 minutes [id number] with patient) Surgery: Gastric Bypass Date of [...] Medications since surgery: oral - appt with clinical radiologist on the 9th Testing blood glucose: 92 [...] beef, cream of wheat, cream of mushroom, malaysian yogurt Fluid choices: water Supplementation: Flinstones, iron, [...] multivitamin & mineral (with iron) supplement, 2/day -1925-9735 mg calcium citrate with vitamin D/day (take in divided doses, not within 2 hour s of multivitamin or iron supplement) -500 mcg/day sublingual B12 supplement (or monthly injections) Continued to reinforce importance of mindful eating. Continue to increase physical activity. Follow up in 3 months or earlier as needed. Tejas Cevallos RD, LD Pager # [phone] signed by Tejas Cevallos RD at 05/27/2018 [...] | | | | [place], [place] | | | | | | [address] | | | | | | [phone] | | | | | | | | +--------+ + + + + documented as of this encounter Procedures + +--------+ + + + | Procedure Name | Priori | Date/Time | Associated Diagnosis | Comments | | | ty | | | | + +--------+ + + + | [place] MNT RE-ASSESSMNT | Routin | 05/27/2018 | [...]
--- OUTSIDE RECORDS SUMMARY | ~2019-05-23 | XMS | Encounter Summary ---
Demographics + + + | Address | [address] | | | [place] [address] | + + + | Home Phone [...] + | Katalina Padilla | ECON | [address] | | | | | [place], [place] | | | | | [address] | | + + + + + | Ellie Vang | ECON | Unknown | | + + + + + Care Team Providers + +------+ + | Care Senior Biostatistician/Group Leader Name | Role | Phone | [...] | 2015 | Review | Center at [facility] [address] | MD | Decision | | | | [address] | | | | | | Mailcode: [place] | | | | | | [facility] and | | | | | | [facility] 2 | | | | | | [place], [place] | | | | | | [address] | | | | | | [phone] | | | +--------+ + + + [...] | | | | | [place], [place] | | | | | | [address] | | | | | | [phone] | | | | | | | | +--------+ + + + + documented as of this encounter Visit Diagnoses Not on filedocumented in this encounter"
--- OUTSIDE RECORDS SUMMARY | ~2019-05-23 | XMS | Encounter Summary ---
Demographics + + + | Address | [address] | | | [place] [address] | + + + | Home Phone [...] [place], [place] | | | | | [address] | | + + + + + | Ellie Vang | ECON | Unknown | | + + + + + Care Team Providers + +------+ + | Care Senior Software Engineer Analytics Name | Role | Phone | + [...] | BROCK Roldan | | | with SCHOOL BUS AIDE | | hypertension | [address] | [address] | | | | | Right | [address] | [address] | | | | | heart | [place], [place] | [place], | | | | | failure | [address] | [place] | | | | | ([facility]) Type | Phone: | [address] | | | | | 2 diabetes | [phone] | | | | | | mellitus | Fax: | | | | | | without | [phone] | | | | | | complication | | | | | | | , with | | | | | | | long-term | | | | | | | current use | | | | | | | of insulin | | | | | | | ([facility]) | | | +--------+ + + + + + Encounter Details +--------+---------+ + + + | Date | Type | Department | Care Team | Description | +--------+---------+ + + + | 02/02/ | Office | Digestive Health | [address] | Morbid obesity with | | 2017 | Visit | Center at [facility] [address] | [address] | BMI of 70 and over, | | | | [address] | Lesly Gutiérrez [place], | adult ([facility]) (Primary | | | | Mailcode: Center | [place] [address] | Dx); Type 2 | | | | for Health and |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 | | | | Healing, Building 2 | | without | | | | [place], [place] | | complication, with | | | | [address] | | long-term current | | | | [phone] | | use of insulin | | | | | | ([facility]); Chronic | | | | | | diastolic heart | | | | | | failure ([facility]) | +--------+---------+ + + + Social History [...] of Visit: 10:03 to 10:30 (27 minutes [id number] with patient) (1 hour ap point not [...] eat like she should, tries to eat complaint adjuster things and this does not help. Food [...] Allergic rhinitis Anemia Anxiety Bipolar disorder ([facility]) Chronic wound infection of abdomen from 2010 Cough Depression Diverticulitis of colon Dizziness Glaucoma Heart burn Hemorrhoids Hernia of abdominal wall Incisional hernia, incarcerated 2012 Insomnia Irregular periods Kidney stone Leaking of urine Leg sore Lymphedema Morbid obesity with body mass index of 70 and over in adult ([facility]) Myalgia and myositis Nausea Neck pain Numbness Osteoarthritis of knee Palpitations Pneumonia Shortness of breath Staphylococcal infection Stroke ([facility]) TIA (transient ischemic attack) due to [...] post-surgery diet progression. 4. Call or send Medvers[employer] message to dietitian with any questions. Contact information was provided. Follow up with dietitian prior to surgery (take 2 Weight management classes as part of 6 mo [facility] supervised diet). [address], [facility], LD [facility] Bariatrics [phone] documented in this enco unter Plan of [...] | | 2019 | Visit | | [address] | | | | | | [place] [facility] [place] | | | | | | [address] | | | | | | [phone] | | | | | | | | +--------+ + + + + documented as of this encounter Procedures + +--------+ + + + | Procedure Name | Priori | Date/Time | Associated Diagnosis | Comments | | | ty | | | | + +--------+ + + + | ND MNT RE-ASSESSMNT | Routin | 02/02/2017 | Morbid obesity | | | X15MIN | e | 12:04 PM | with BMI of 70 and | | | | | PDT | over, adult ([facility]) | | | | | | Type 2 diabetes | | | | | | mellitus without | | | | | | complication, with | | | | | | long-term current | | | | | | use of insulin ([facility]) | | | | | | Chronic diastolic | | | | | | heart failure ([facility]) | | + +--------+ + + + [...]
--- OUTSIDE RECORDS SUMMARY | ~2019-05-23 | XMS | Encounter Summary ---
Demographics + + + | Address | [address] | | | [place] [address] | + + + | Home Phone [...] [place], [place] | | | | | [address] | | + + + + + | Ellie Vang | ECON | Unknown | | + + + + + Care Team Providers + +------+ + | Care Bleacher [employer] Name | Role | Phone | + [...] | | | | | Healing, | [place], [place] | | | | | | Building [address] | [address] | | | | | | [place], [place] | Phone: | | | | | | [address] | [phone] | | | | | | Phone: | Fax: | | | | | | [phone] | [phone] | | | | | | Fax: | | | | | | | [phone] | | +--------+--------+ + + + + [...] | | | | | Healing, | [place], [place] | | | | | | [address] 2 | [address] | | | | | | [place], [place] | Phone: | | | | | | [address] | [phone] | | | | | | Phone: | Fax: | | | | | | [phone] | [phone] | | | | | | Fax: | | | | | | | [phone] | | +--------+--------+ + + + + Encounter Details +--------+ + + + + | Date | Type | Department | Care Team | Description | +--------+ + + + + | 10/07/ | Hospital | Radiology/Imaging | | | | 2012 | Encounter | Lab at [facility] [address] | | | | | [address] Mailcode: | | | | | | [facility] | | [facility] and Healing, | | | | | | Building 1, 3rd | | | | | | Floor [place], [place] | | | | | | [address] | | | | | | [phone] | | | +--------+ + + + [...] | | 2019 | Visit | | [address] | | | | | | [place] [facility] [place] | | | | | | [address] | | | | | | [phone] | | | | | | | [...] +---------+ + + | [facility] DEPARTMENT OF | | | | | [...] 12 | 6 - 20 mg/dL | [facility], | | | | | [...] + | NKE[place]I VAL[place]Z, POINT | [address] [facility] | [place] [address] | | | OF CARE TESTS | | | | + + + + + documented in this encounter Visit Diagnoses + + | Diagnosis | + + | Hernia Hernia of unspecified site of abdominal cavity without mention of obstruction | | or gangrene | + + documented in this encounter"
--- OUTSIDE RECORDS SUMMARY | ~2019-05-23 | XMS | Encounter Summary ---
Demographics + + + | Address | [address] | | | [place] [address] | + + + | Home Phone [...] [place], [place] | | | | | [address] | | + + + + + | Ellie Vang | ECON | Unknown | | + + + + + Care Team Providers + +------+ + | Care Digital Printer Operator Name | Role | Phone | [...] | | 2017 | | Preventive at [facility] | MD [address] | | | | | [address] | Ave [place], [place] | | | | | Mailcode: CH9A | [address] | | | | | [facility] | [phone] | | | | | and [facility], | | | | | | Building 1 | | | | | | [place], [place] | | | | | | [address] | | | | | | [phone] | | | +--------+ + + + [...] | | | | | [place], [place] | | | | | | [address] | | | | | | [phone] | | | | | | | | +--------+ + + + + documented as of this encounter Visit Diagnoses Not on filedocumented in this encounter"
--- OUTSIDE RECORDS SUMMARY | ~2019-05-23 | XMS | Encounter Summary ---
Demographics + + + | Address | [address] | | | [place] [address] | + + + | Home Phone [...] [place], [place] | | | | | [address] | | + + + + + | Ellie Vang | ECON | Unknown | | + + + + + Care Team Providers + +------+ + | Care Press Cleaner Name | Role | Phone | + +------+ + | Fadi Goodrich DO | PCP | | + +------+ + Encounter Details +--------+------+ + + + | Date | Type | Department | Care Team | Description | +--------+------+ + + + | 08/28/ | Lab | Laboratory at [facility] | | Type 2 diabetes | | 2015 | | [address] | | mellitus (HCC) | | | | [place], [place] | | | | | | [address] | | | | | | [phone] | | | +--------+------+ + + + [...] | | 2019 | Visit | | [address] | | | | | | [place], [place] | | | | | | [address] | | | | | | [phone] | | | | | | | [...] [facility] | [address] | [place] [address] | | | LYDIA RANGEL | CLARENCE [...] + + | [facility] [employer] | [address] | [place] [address] | | | SERVICES, SPECIAL | PARK [...]
--- OUTSIDE RECORDS SUMMARY | ~2019-05-23 | XMS | Encounter Summary ---
Demographics + + + | Address | [address] | | | [place] [address] | + + + | Home Phone [...] [place], [place] | | | | | [address] | | + + + + + | Ellie Vang | ECON | Unknown | | + + + + + Care Team Providers + +------+ + | Care Soaking Pits Supervisor Name | Role | Phone | [...] | | | [facility] [address] [facility] | | | | | | [facility] | | | | | | [place], [place] | | | | | | [address] | | | +--------+ + + + [...] | | | | | [place], [place] | | | | | | [address] | | | | | | [phone] | | | | | | | | +--------+ + + + + documented as of this encounter Visit Diagnoses Not on filedocumented in this encounter"
--- OUTSIDE RECORDS SUMMARY | ~2019-05-23 | XMS | Encounter Summary ---
Demographics + + + | Address | [address] | | | [place] [address] | + + + | Home Phone [...] [place], [place] | | | | | [address] | | + + + + + [...] Morbid | | 2018 | Visit | [place] at [address] | [address] | obesity ([facility]), BMI | | | | [address] | [address] | [address] (Primary Dx); | | | | Mailcode: [place] | [place] | Type 2 diabetes | | | | [facility] [place] and | [address] | mellitus without | | | | Healing, Building [address] | | complication, with | | | | [place], [place] | | long-term current | | | | [address] | | use of insulin | | | | [phone] | | ([facility]); S/P gastric | | | | | [...] Follow-Up Patient referred by: DO Vasyl Lewis [facility] [place] [address] Documented time of visit: 1:30 to 2:00 (30 minutes [id number] with patient) Surgery: Gastric Bypass Date of [...] Bipolar disorder ([facility]) Chronic wound infection of abdomen from 2010 Cough Depression Diverticulitis of colon Dizziness Glaucoma Heart burn Hemorrhoids Hernia of abdominal wall Incisional hernia, incarcerated 2012 Insomnia Irregular periods Kidney stone Leaking of urine Leg sore Lymphedema Morbid obesity with body mass index of 70 and over in adult ([facility]) Myalgia and myositis Nausea Neck pain Numbness Osteoarthritis of knee Palpitations Pneumonia Shortness of breath Staphylococcal infection Stroke ([facility]) TIA (transient ischemic attack) due to [...] multivitamin & mineral (with iron) supplement, 2/day -0852-4530 mg calcium citrate with vitamin D/day (take [...] in [address],[place] Pager# [phone] Phone: [phone] documented in this e ncounter Plan of [...] | | | | | [place], [place] | | | | | | [address] | | | | | | [phone] | | | | | | | | +--------+ + + + + documented as of this encounter Procedures + +--------+ + + + | Procedure Name | Priori | Date/Time | Associated Diagnosis | Comments | | | ty | | | | + +--------+ + + + | [place] MNT RE-ASSESSMNT | Routin | 03/10/2018 | [...] [place]) | | | | | | S/P [...]
--- OUTSIDE RECORDS SUMMARY | ~2019-05-23 | XMS | Encounter Summary ---
Demographics + + + | Address | [address] | | | [place] [address] | + + + | Home Phone [...] [place], [place] | | | | | [address] | | + + + + + | Ellie Vang | ECON | Unknown | | + + + + + Care Team Providers + +------+ + | Care Lay Up Operator Name | Role | Phone [...] | | 2017 | | Preventive at [facility] | MD [address] | | | | | [address] | Ave [place], [place] | | | | | Mailcode: CH9A | [address] | | | | | [facility] | [phone] | | | | | and [facility], | | | | | | Building 1 | | | | | | [place], [place] | | | | | | [address] | | | | | | [phone] | | | +--------+ + + + [...] | | | | | [place], [place] | | | | | | [address] | | | | | | [phone] | | | | | | | | +--------+ + + + + documented as of this encounter Visit Diagnoses Not on filedocumented in this encounter"
--- OUTSIDE RECORDS SUMMARY | ~2019-05-23 | XMS | Encounter Summary ---
Demographics + + + | Address | [address] | | | [place] [address] | + + + | Home Phone [...] [place], [place] | | | | | [address] | | + + + + + | Ellie Vang | ECON | Unknown | | + + + + + Care Team Providers + +------+ + | Care Lathe Puller Name | Role | Phone | [...] | | | | | | [place] [address] | | | +--------+ + + + [...] | | 2019 | Visit | | [address] | | | | | | [place] [facility] [place] | | | | | | [address] | | | | | | [phone] | | | | | | | | +--------+ + + + + documented as of this encounter Visit Diagnoses Not on filedocumented in this encounter"
--- OUTSIDE RECORDS SUMMARY | ~2019-05-23 | XMS | Encounter Summary ---
Demographics + + + | Address | [address] | | | [place] [address] | + + + | Home Phone [...] [place], [place] | | | | | [address] | | + + + + + | Ellie Vang | ECON | Unknown | | + + + + + Care Team Providers + +------+ + | Care Drop Hammer Setter Up Name | Role | Phone | [...] | | [place] Mailcode: CH4S | [facility] | | | | | [facility] | [place], [place] | | | | | and Healing, | [address] | | | | | [place] [address] [facility] | [phone] | | | | | Floor [place], [place] | | | | | | [address] | | | | | | [phone] | | | +--------+ + + + [...] [place] | | | | | | [address] | | | | | | [phone] | | | | | | | | +--------+ + + + + documented as of this encounter Visit Diagnoses Not on filedocumented in this encounter"
--- OUTSIDE RECORDS SUMMARY | ~2019-05-23 | XMS | Encounter Summary ---
Demographics + + + | Address | [address] | | | [place] [address] | + + + | Home Phone [...] [place], [place] | | | | | [address] | | + + + + + | Ellie Vang | ECON | Unknown | | + + + + + Care Team Providers + +------+ + | Care Instructor Tap Dancing Name | Role | Phone | + [...] | | 2014 | | Preventive at [facility] | [address] | (Phentermine); | | | | [address] | [place], [place] | Refill Request | | | | Mailcode: Mihaela | [address] | | | | | [facility] | [phone] | | | | | and [address], | | | | | | Building [address] | | | | | | [place], [place] | | | | | | [address] | | | | | | [phone] | | | +--------+--------+ + + + [...] | | | | | [place], [place] | | | | | | [address] | | | | | | [phone] | | | | | | | | +--------+ + + + + documented as of this encounter Visit Diagnoses Not on filedocumented in this encounter"
--- OUTSIDE RECORDS SUMMARY | ~2019-05-23 | XMS | Encounter Summary ---
Demographics + + + | Address | [address] | | | [place] [address] | + + + | Home Phone [...] [place], [place] | | | | | [address] | | + + + + + | Ellie Vang | ECON | Unknown | | + + + + + Care Team Providers + +------+ + | Care Shearing Supervisor Name | Role | Phone | [...] | | 2014 | | Preventive at [facility] | MD [address] | | | | | [address] | Ave [place], [place] | | | | | Mailcode: 9A | [address] | | | | | [facility] | [phone] | | | | | and [address], | | | | | | [address] | | | | | | [place], [place] | | | | | | [address] | | | | | | [phone] | | | +--------+--------+ + + + [...] | 06/30/ | Office | Cardiology | Radnell Franks, | | | 2018 | Visit | | [address] | | | | | | [place], [place] | | | | | | [address] | | | | | | [phone] | | | | | | | | +--------+ + + + + documented as of this encounter Visit Diagnoses Not on filedocumented in this encounter"
--- OUTSIDE RECORDS SUMMARY | ~2019-05-23 | XMS | Encounter Summary ---
Demographics + + + | Address | [address] | | | [place] [address] | + + + | Home Phone [...] [place], [place] | | | | | [address] | | + + + + + | Ellie Vang | ECON | Unknown | | + + + + + Care Team Providers + +------+ + | Care Ice Bag Assembler Name | Role | Phone | + +------+ + | Fadi Goodrich DO | PCP | | + +------+ + Encounter Details +--------+------+ + + + | Date | Type | Department | Care Team | Description | +--------+------+ + + + | 11/20/ | Lab | Laboratory at [facility] | | 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 | | [address] | | BMI of 70 and over, | | | | [place], [place] | | adult ([facility]); | | | | [address] | | 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[phone] | | 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 ([facility]); | | | | | | Type 2 diabetes | | | | | | mellitus without | | | | | | complication, with | | | | | | long-term current | | | | | | use of insulin ([facility]) | +--------+------+ + + + [...] | | | | | [place], [place] | | | | | | [address] | | | | | | [phone] | | | | | | | [...] | PDT | over, adult ([facility]) | results section. | | | | | 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| | 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 ([facility]) | | + +--------+ + + + | VITAMIN B1, WHOLE | Routin | 11/20/2017 | Morbid obesity | Results for this | | BLOOD | e | 10:01 AM | with BMI of 70 and | procedure are in the | | | | PDT | over, adult ([facility]) | results section. | | | | | 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| | 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 ([facility]) | | + +--------+ + + + | VITAMIN D, | Routin | 11/20/2017 | Morbid obesity | Results for this | | 25-HYDROXY, SERUM | e | 10:01 AM | with BMI of 70 and | procedure are in the | | | | PDT | over, adult ([facility]) | results section. | | | | | 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| | 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 ([facility]) | | + +--------+ + + + | COMPLETE METABOLIC | Routin | 11/20/2017 | Morbid obesity | Results for this | | SET | e | 10:01 AM | with BMI of 70 and | procedure are in the | | (NA,K,CL,CO2,BUN,CRE | | PDT | over, adult ([facility]) | results section. | | AT,GLUC,CA,AST,ALT,B | | | Diabetes mellitus | | | MARGIE TOTAL,ALK | | | type 2 without | | | PHOS,ALB,PROT TOTAL) |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 ([facility]) | | + +--------+ + + + | CBC ONLY | Routin | 11/20/2017 | Morbid obesity | Results for this | | | e | 10:01 AM | with BMI of 70 and | procedure are in the | | | | PDT | over, adult ([facility]) | results section. | | | | | 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| | 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 ([facility]) | | + +--------+ + + + | FERRITIN | Routin | 11/20/2017 | Morbid obesity | Results for this | | | e | 10:01 AM | with BMI of 70 and | procedure are in the | | | | PDT | over, adult ([facility]) | results [...] | PDT | over, adult ([facility]) | results [...] | PDT | over, adult ([facility]) | results [...] + | [facility] | [address] | [place] [address] | | | [facility] | | | | | HEALTH + [...] | + + + + + | [employer] | [address] | [place], [place] | | | SERVICES, LIPID | [address] | [address] | | + + + + + [...] | [facility] | | considered for monitoring ocean transportation intermediary glycemic control in patients with: | LABORATORY [...] + + | [facility] | [address] [facility] [address] | [place] [address] | | | SERVICES, SPECIAL | PARK [...] B: | | | | | | [email or web address] | | | | | | by [employer],[address] | | | | | | Natalia Martinez, [facility] | | | | | | [address] | | | | | | [phone].[email or web address]. | | | | | | [place] [employer] ssdIsmael MD, | | | | | | [...] + | [facility] | [address] | [place], [place] | | | [facility] | | [address] | | + + + + + [...] MDRD equation recommended by the | [facility] | | National Kidney Disease Education Program. [...] + + | [facility] | [address] | [place] [address] | | | SERVICES, CORE | CLARENCE [...] [facility] | [address] | [place] [address] | | | SERVICES, CORE | PARK [...] [facility] | [address] | [place] [address] | | | SERVICES, CORE | PARK [...] [facility] | [address] | [place] [address] | | | SERVICES, CORE | CLARENCE [...] [facility] | [address] | [place] [address] | | | SERVICES, CORE | PARK [...] | + + + + + | [facility] | [address] | [place] [address] | | | SERVICES, CORE | CLARENCE [...]
--- OUTSIDE RECORDS SUMMARY | ~2019-05-23 | XMS | Encounter Summary ---
Demographics + + + | Address | [address] | | | [place] [address] | + + + | Home Phone [...] [place], [place] | | | | | [address] | | + + + + + | Ellie Vang | ECON | Unknown | | + + + + + Care Team Providers + +------+ + | Care Internal Security Manager Name | Role | Phone [...] | | | | | essential | [address] | [address] | | | | | hypertension | [address], | Ave | | | | | Type II or | [address] | [place], [place] | | | | | unspecified | [place] | [address] | | | | | type | [address] | Phone: | | | | | diabetes | Phone: | [phone] | | | | | mellitus | [phone] | Fax: | | | | | without | Fax: | [phone] | | | | | mention of | [phone] | | | | | | complication [...] 2015 | Visit | Preventive at [facility] | MD [address] | mellitus (HCC) | | | | [address] | Ave [place], [place] | (Primary Dx) | | | | Mailcode: 9A | [address] | | | | | [facility] | [phone] | | | | | and Healing, | | | | | | [address] | | | | | | [place], [place] | | | | | | [address] | | | | | | [phone] | | | +--------+---------+ + + + [...] obesity and T2DM. Since I saw Ms. Livai singh last, continues on phentermine and 100 [...] | | | | | [place], [place] | | | | | | [address] | | | | | | [phone] | | | | | | | [...] [facility] | [address] | [place] [address] | | | SERVICES, CORE | CLARENCE [...] [facility] | [address] | [place] [address] | | | SERVICES, SPECIAL | PARK [...]
--- OUTSIDE RECORDS SUMMARY | ~2019-05-23 | XMS | Encounter Summary ---
Demographics + + + | Address | [address] | | | [place] [address] | + + + | Home Phone [...] [place], [place] | | | | | [address] | | + + + + + | Ellie Vang | ECON | Unknown | | + + + + + Care Team Providers + +------+ + | Care Electronics Processing Supervisor Name | Role | Phone [...] [address] | | | | | ([facility]) | [address] | [address] | | | | | Procedures | [place], [place] | [place], [place] | | | | | CONSULT TO | [address] | [address] | | | | | CAR | Phone: | Phone: | | | | | PREVENTATIVE | [phone] | [phone] | | | | | [facility] - | Fax: | Fax: | | | | | LIPIDS | [phone] | [phone] | +--------+--------+ + + + + Reason [...] | | 2 diabetes | [place], | [place], [place] | | | | | mellitus | [place] [address] | [address] | | | | | without | Phone: | Phone: | | | | | complication | [phone] | [phone] | | | | | (HCC) | Fax: | Fax: | | | | | Procedures | [phone] | [phone] | | | | | ME EST [...] | 2017 | Visit | Preventive at [facility] | [address] | hypertension | | | | [address] | Ave [facility] [place] | (Primary Dx); Right | | | | Mailcode: CH9A | [address] | heart failure (HCC) | | | | [facility] | [phone] | | | | | and Healing, | | | | | | [address] | | | | | | [place], [place] | | | | | | [address] | | | | | | [phone] | | | +--------+---------+ + + + [...] 1 tablet by mouth once daily CALCIUM [id number]-[id number] ORAL Take 2 tablets by mouth two [...] | | | | | [place] [address], [place] | | | | | | [address] | | | | | | [phone] | | | | | | | | +--------+ + + + + documented as of this encounter Visit Diagnoses + + | Diagnosis | + + | Essential hypertension - Primary | + + | Right heart failure (HCC) Congestive heart failure, unspecified | + + documented in this encounter
--- OUTSIDE RECORDS SUMMARY | ~2019-05-23 | XMS | Encounter Summary ---
Demographics + + + | Address | [address] | | | [place] [address] | + + + | Home Phone [...] [place], [place] | | | | | [address] | | + + + + + | Ellie Vang | ECON | Unknown | | + + + + + Care Team Providers + +------+ + | Care Cigar Tobacco Rehandler Name | Role | Phone | + [...] | | | | | | [facility] | | | | | | [place], [place] | | | | | | [address] | | | | | | [phone] | | | +--------+ + + + [...] [place] | | | | | | [address] | | | | | | [phone] | | | | | | | | +--------+ + + + + documented as of this encounter Visit Diagnoses Not on filedocumented in this encounter"
--- OUTSIDE RECORDS SUMMARY | ~2019-05-23 | XMS | Encounter Summary ---
Demographics + + + | Address | [address] | | | [place] [address] | + + + | Home Phone [...] + | Katalina Padilla | ECON | [address] | | | | | [place], [place] | | | | | [address] | | + + + + + | Ellie Vang | ECON | Unknown | | + + + + + Care Team Providers + +------+ + | Care Library Media Technician Name | Role | Phone | [...] 2014 | | Preventive at [facility] | MD [address] | | | | | [address] | [place] [facility] [place] | | | | | Mailcode: [facility] | [address] | | | | | [facility] | [phone] | | | | | and [address] | | | | | | Building [address] | | | | | | [facility] [place] | | | | | | [address] | | | | | | [phone] | | | +--------+ + + + [...] [place] | | | | | | [address] | | | | | | [phone] | | | | | | | | +--------+ + + + + documented as of this encounter Visit Diagnoses Not on filedocumented in this encounter"
--- OUTSIDE RECORDS SUMMARY | ~2019-05-23 | XMS | Encounter Summary ---
Demographics + + + | Address | [address] | | | [place] [address] | + + + | Home Phone [...] [place], [place] | | | | | [address] | | + + + + + | Ellie Vang | ECON | Unknown | | + + + + + Care Team Providers + +------+ + | Care Developmental Therapist Name | Role | Phone | + +------+ + | aFdi Goodrich DO | PCP | | + +------+ + Reason for Visit + + + | Reason | Comments | + + + | Medical Records | Letter from manager case. | | Review | | + + + Encounter Details +--------+ + + + + | Date | Type | Department | Care Team | Description | +--------+ + + + + | 11/08/ | Abstract | Digestive Health | Shereen Georges, | Medical Records | | 2015 | | Center at [facility] [address] | [facility] [address] | Review (Letter from | | | | [address] | [place], [place] | manager case. ) | | | | Mailcode: [place] | [address] | | | | | [facility] and | [phone] | | | | | [place] [address] | | | | | | [place], [place] | | | | | | [address] | | | | | | [phone] | | | +--------+ + + + [...] | | | | | [place], [place] | | | | | | [address] | | | | | | [phone] | | | | | | | | +--------+ + + + + documented as of this encounter Visit Diagnoses Not on filedocumented in this encounter"
--- OUTSIDE RECORDS SUMMARY | ~2019-05-23 | XMS | Encounter Summary ---
Demographics + + + | Address | [address] | | | [place] [address] | + + + | Home Phone [...] [place], [place] | | | | | [address] | | + + + + + | Ellie Vang | ECON | Unknown | | + + + + + Care Team Providers + +------+ + | Care Sash Repairer Name | Role | Phone | [...] | | | | | essential | [address] | [address] | | | | | hypertension | [address] | Ave | | | | | Type II or | [address] | [place], [place] | | | | | unspecified | [place], [place] | [address] | | | | | type | [address] | Phone: | | | | | diabetes | Phone: | [phone] | | | | | mellitus | [phone] | Fax: | | | | | without | Fax: | [phone] | | | | | mention of | [phone] | | | | | | complication [...] | Visit | Preventive at [facility] | [address] | mellitus (HCC) | | | | [address] | Ave [place], [place] | (Primary Dx); | | | | Mailcode: 9A | [address] | Migraine headache | | | | [facility] | [phone] | | | | | and [address], | | | | | | [address] | | | | | | [place], [place] | | | | | | [address] | | | | | | [phone] | | | +--------+---------+ + + + [...] she is hypothyroid and put her on [place] Thyroid hormone replacement therapy. Her heart rate [...] | | 2018 | Visit | | [address] | | | | | | [place], [place] | | | | | | [address] | | | | | | [phone] | | | | | | | [...] | + + + + + | Snapt | [address] | [place] [address] | | | SERVICES, SPECIAL | PARK [...]
--- OUTSIDE RECORDS SUMMARY | ~2019-05-23 | XMS | Encounter Summary ---
Demographics + + + | Address | [address] | | | [place] [address] | + + + | Home Phone [...] [place], [place] | | | | | [address] | | + + + + + | Ellie Vang | ECON | Unknown | | + + + + + Care Team Providers + +------+ + | Care Squeegee Operator Name | Role | Phone | [...] mellitus (HCC); | | | | at [facility] 3rd Floor | | Cholecystitis | | | | [address] | | | | | | [place], | | | | | | [place] [address] | | | | | | [phone] | | | +--------+------+ + + + [...] [place] | | | | | | [address] | | | | | | [phone] | | | | | | | [...] [facility] | [address] | [place] [address] | | | LYDIA RANGEL | CLARENCE [...] [facility] | [address] | [place] [address] | | | SERVICES, CORE | PARK [...] NKECHI ROBERTS | [address] | [place] [address] | | | SERVICES, SPECIAL | CLARENCE [...]
--- OUTSIDE RECORDS SUMMARY | ~2019-05-23 | XMS | Encounter Summary ---
Demographics + + + | Address | [address] | | | [place] [address] | + + + | Home Phone [...] [place], [place] | | | | | [address] | | + + + + + | Ellie Vang | ECON | Unknown | | + + + + + Care Team Providers + +------+ + | Care Processing Mgr Name | Role | Phone | [...] | | | 2014 | Event | [facility] | MD Raza [address] | | | | | Admitting Desk | [address] | | | | | Located on the 9 | [place], [place] | | | | | floor [address] | [address] | | | | | [address] | [phone] | | | | | [place], [place] | | | | | | [address] | Marcial Brunner CRNA | | | | | | [address] | | | | | | Lesly Gutiérrez [place], | | | | | | [place] [address] | | | | | | [phone] | | | | | | | [...] | | 2019 | Visit | | [address] | | | | | | [place], [place] | | | | | | [address] | | | | | | [phone] | | | | | | | [...]
--- OUTSIDE RECORDS SUMMARY | ~2019-05-23 | XMS | Encounter Summary ---
Demographics + + + | Address | [address] | | | [place] [address] | + + + | Home Phone [...] + | Katalina Padilla | ECON | [address] | | | | | [place], [place] | | | | | [address] | | + + + + + | Ellie Vang | ECON | Unknown | | + + + + + Care Team Providers + +------+ + | Care Registered Public Health Nurse Name | Role | Phone [...] mellitus (HCC); | | | | at [facility] 3rd Floor | | Cholecystitis | | | | [address] | | | | | | [place], | | | | | | [place] [address] | | | | | | [phone] | | | +--------+------+ + + + [...] [place] | | | | | | [address] | | | | | | [phone] | | | | | | | [...] [facility] | [address] | [place] [address] | | | LYDIA RANGEL | CLARENCE [...] | [facility] | [address] | [place] [address] | | | SERVICES, CORE | PARK [...] NKECHI ROBERTS | [address] | [place] [address] | | | SERVICES, SPECIAL | CLARENCE [...]
--- OUTSIDE RECORDS SUMMARY | ~2019-05-23 | XMS | Encounter Summary ---
Demographics + + + | Address | [address] | | | [place] [address] | + + + | Home Phone [...] [place], [place] | | | | | [address] | | + + + + + | Ellie Vang | ECON | Unknown | | + + + + + Care Team Providers + +------+ + | Care Accounting Technician Name | Role | Phone | [...] | [place], | | | | | [place] EST | Fadi Person DO | MD Randell | | | | | PATIENT | [address] | [address] | | | | | [address] | [address] | Ave | | | | | | [place], | [place], [place] | | | | | | [place] [address] | [address] | | | | | | Phone: | Phone: | | | | | | [phone] | [phone] | | | | | | Fax: | Fax: | | | | | | [phone] | [phone] | +--------+--------+ + + + + Encounter Details +--------+---------+ + + + | Date | Type | Department | Care Team | Description | +--------+---------+ + + + | 04/03/ | Office | Cardiology | Randell Franks, | Morbid obesity (HCC) | | 2015 | Visit | Preventive at [facility] | [address] | (Primary Dx); Type | | | | [address] | Ave [place], [place] | 2 diabetes mellitus | | | | Mailcode: CH9A | [address] | without complication | | | | [facility] | [phone] | ([facility]) | | | | and [address], | | | | | | Building [address] | | | | | | [place], [place] | | | | | | [address] | | | | | | [phone] | | | +--------+---------+ + + + [...] 500 mg by mouth once daily. CALCIUM CRB&[id number]-[id number]-[id number]-GENIS ORAL Take 1 tablet by mouth two [...] documented, but if we use her last [facility] weight of 410 lbs, this would put her at 360 lbs before consideration for RYGBP. She is working with the bariatric surgery dental director to try to achieve this. She states [...] visit Diet: healthy, working with Bar Surg dental director Exercise: "I walk everywhere." ROS: No CP, [...] | | 2018 | Visit | | [address] | | | | | | [place], [place] | | | | | | [address] | | | | | | [phone] | | | | | | | | +--------+ + + + + documented as of this encounter Visit Diagnoses + + | Diagnosis | + + | Morbid obesity (HCC) - Primary Morbid obesity | + + | Type 2 diabetes mellitus without complication (HCC) | + + documented in this encounter
--- OUTSIDE RECORDS SUMMARY | ~2019-05-23 | XMS | Encounter Summary ---
Demographics + + + | Address | [address] | | | [place] [address] | + + + | Home Phone [...] [place], [place] | | | | | [address] | | + + + + + | Ellie Vang | ECON | Unknown | | + + + + + Care Team Providers + +------+ + | Care Dairy Consultant Name | Role | Phone | + +------+ + | Fadi Goodrich DO | PCP | | + +------+ + Encounter Details +--------+ + + + + | Date | Type | Department | Care Team | Description | +--------+ + + + + | 03/04/ | Telephone | Digestive Health | Ion Pandey, | | | 2018 | | [place] [facility] [address] | MD [address] | | | | | [address] | [place], [place] | | | | | Mailcode: [place] | [address] | | | | | for Health and | | | | | | [facility] 2 | | | | | | [facility] [place] | | | | | | [address] | | | | | | | [...] | | | | | [place], [place] | | | | | | [address] | | | | | | [phone] | | | | | | | | +--------+ + + + + documented as of this encounter Visit Diagnoses Not on filedocumented in this encounter"
--- OUTSIDE RECORDS SUMMARY | ~2019-05-23 | XMS | Encounter Summary ---
Demographics + + + | Address | [address] | | | [place] [address] | + + + | Home Phone [...] [place], [place] | | | | | [address] | | + + + + + | Ellie Vang | ECON | Unknown | | + + + + + Care Team Providers + +------+ + | Care Managing Consultant Name | Role | Phone | [...] | | | | | | [place] [address] | | | +--------+ + + + [...] | | 2019 | Visit | | [address] | | | | | | [place] [facility] [place] | | | | | | [address] | | | | | | [phone] | | | | | | | | +--------+ + + + + documented as of this encounter Visit Diagnoses Not on filedocumented in this encounter"
--- OUTSIDE RECORDS SUMMARY | ~2019-05-23 | XMS | Encounter Summary ---
Demographics + + + | Address | [address] | | | [place] [address] | + + + | Home Phone [...] + | Katalina Padilla | ECON | [address] | | | | | [place], [place] | | | | | [address] | | + + + + + | Ellie Vang | ECON | Unknown | | + + + + + Care Team Providers + +------+ + | Care Rn Cardiac Rehab Name | Role | Phone | + [...] | | [address] | Ave [place], [place] | (Primary Dx); | | | | Mailcode: Center | [address] | Ventral hernia | | | | for Health and | [phone] | without obstruction | | | | Healing, Building [address] | | or gangrene; Mixed | | | | [place], [place] | | hyperlipidemia; | | | | [address] | | 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[phone] | | type 2 without | | [...] is doing Refill oxycodone Rx +Take acid mold carrier for first 3 mos, then wean off [...] to POC and [facility] any issues. documented in this [...] times daily. , Disp: , Rfl: CALCIUM CRB&BRX-S1-BSO41-GENIS ORAL, Take 2 tablets by mouth two [...] Dr. Andie Brian Incisional hernia repair 03/01/2015 [facility]/ Dr. Cantu. Primary fascial closure and [...] History Narrative Updated 11/09/15 She lives in [place] with her mother and her sister (also her caregiver) lives in an apa rtment/duplex below. She has 2 grandchildren (age 4 and 7) who live with her daughter and son-in-law Her boyfriend lives in [place] HFpEF, DM2, HTN, Sleep Apnea (unable to [...] program here and refer her to our cheese specialist who also has expertise in physical [...] Increase torsemide to pre-surgical dose +Take acid mold carrier for first 3 mos, then wean off [...] she will make an appointment with her Crime Data Specialist to discuss insulin dosing and CBGs [...] to POC and [facility] if any issues. Start time 15:35, end time 15:55. I spent a total of 20 minutes face to face with this pat ient. Over 50% of visit was in counseling. ~ 10 minutes of additional time spent reviewing chart prior to visit and documenting after this visit. Ronna Clarke DNP ACNP TRAINING PERSONNEL SUPERVISOR Bariatric Surgery Nurse Practitioner [facility] | [address] | [place], [place] | [address] | documented in this e ncounter Plan [...] | | | | | [place], [place] | | | | | | [address] | | | | | | [phone] | | | | | | | [...] HTN | | | | | | MAARA treated with | | | | | [...] | | cells No organisms seen | [place] | + + + + + + + + | Performing | Address | City/State/Zipcode | Phone Number | | Organization | | | | + + + + + | [facility] | [address] | [place] [address] | | | [facility] | | | | + + [...]
--- OUTSIDE RECORDS SUMMARY | ~2019-05-23 | XMS | Encounter Summary ---
Demographics + + + | Address | [address] | | | [place] [address] | + + + | Home Phone [...] [place], [place] | | | | | [address] | | + + + + + | Ellie Vang | ECON | Unknown | | + + + + + Care Team Providers + +------+ + | Care Engineer Remote Control Diesel Name | Role | Phone | + [...] 2012 | | Center at [facility] [address] | MD [address] | | | | | [address] | [facility] | | | | | Mailcode: Center | [place], [place] | | | | | [facility] and | [address] | | | | | [facility] 2 | [phone] | | | | | [place], [place] | | | | | | [address] | | | | | | [phone] | | | +--------+ + + + [...] | | | | [place] [facility] [place] | | | | | | [address] | | | | | | [phone] | | | | | | | | +--------+ + + + + documented as of this encounter Visit Diagnoses Not on filedocumented in this encounter"
--- OUTSIDE RECORDS SUMMARY | ~2019-05-23 | XMS | Encounter Summary ---
Demographics + + + | Address | [address] | | | [place] [address] | + + + | Home Phone [...] [place], [place] | | | | | [address] | | + + + + + | Ellie Vang | ECON | Unknown | | + + + + + Care Team Providers + +------+ + | Care Farm Equipment Maintenance Supervisor Name | Role | Phone | + +------+ + | Fadi Goodrich DO | PCP | | + +------+ + Encounter Details +--------+ + + + + | Date | Type | Department | Care Team | Description | +--------+ + + + + | 06/07/ | Hospital | Radiology/Imaging | Ronna Clarke, | | | 2018 | Encounter | Lab at [facility] [address] | ACNP [address] | | | | | [address] [place] Mailcode: | [place], [place] | | | | | [facility] | [address] | | | | | Health and Healing, | [phone] | | | | | [address] | | | | | | Floor [place], [place] | | | | | | [address] | | | | | | [phone] | | | +--------+ + + + [...] | | 0 | | | | [id number]-[id number]-GEN | mouth two times | | | [...] 2019 | Visit | | [address] | | | | | | [place], [place] | | | | | | [address] | | | | | | [phone] | | | | | | | [...] + + + | EXAM: Esophagram with law office receptionist radiograph HISTORY: RYGB 03/01/2018, | [facility] | | vomiting/pain ever since COMPARISON: 04/27/2018 CT TECHNIQUE: | RADIOLOGY VOICE | | Dental Surgeon radiograph was performed. Single contrast exam of the esophagus, | RECOGNITION 2 | | gastric pouch, and gastrojejunostomy in upright positioning. | | | Radiation dose reduction technique was maximized where appropriate | | | using pulsed fluoroscopy and fluoro-store images. Fluoro Time 57 | | | second(s) FINDINGS: Dental Surgeon shows stone in the upper pole of [...] Note | + + | Service Account, [employer] Res In Interface - 06/07/2018 11:18 AM PST EXAM: Esophagram | | with law office receptionist radiograph HISTORY: RYGB 03/01/2018, vomiting/pain ever since COMPARISON: | | 04/27/2018 CT TECHNIQUE: Dental Surgeon radiograph was performed. Single contrast exam of the | | esophagus, gastric pouch, and gastrojejunostomy in upright positioning. Radiation dose | | reduction technique was maximized where appropriate using pulsed fluoroscopy and | | fluoro-store images. Fluoro Time 57 second(s) FINDINGS:Dental Surgeon shows stone in the upper | | [...]
--- OUTSIDE RECORDS SUMMARY | ~2019-05-23 | XMS | Encounter Summary ---
Demographics + + + | Address | [address] | | | [place] [address] | + + + | Home Phone [...] [place], [place] | | | | | [address] | | + + + + + | Ellie Vang | ECON | Unknown | | + + + + + Care Team Providers + +------+ + | Care Calendering Machine Operator Name | Role | Phone [...] at [facility] [address] | MD J[address] | | [address] | [address] | | | | | Mailcode: Center | [place], [place] | | | | | [facility] and | [address] | | | | | [facility] 2 | [phone] | | | | | [place], [place] | | | | | | [address] | | | | | | [phone] | | | +--------+ + + + [...] | | | | | [place], [place] | | | | | | [address] | | | | | | [phone] | | | | | | | | +--------+ + + + + documented as of this encounter Visit Diagnoses Not on filedocumented in this encounter"
--- OUTSIDE RECORDS SUMMARY | ~2019-05-23 | XMS | Encounter Summary ---
Demographics + + + | Address | [address] | | | [place] [address] | + + + | Home Phone [...] [place], [place] | | | | | [address] | | + + + + + | Ellie Vang | ECON | Unknown | | + + + + + Care Team Providers + +------+ + | Care Healthcare Project Manager Name | Role | Phone [...] PRINCE Giles | | | | | [place], [place] | [address] | | | 11/12/ | | [address] | [place], [place] | | | 2012 | | [phone] | [address] | | | | | | [phone] | | | | | | | [...] yuriy tral hernia. She was transferred from [facility] for surgical evaluation of possible incarcer ated [...] Cipro. POD 5 she was discharged ho or, tolerating a diabetic diet. Having bowel function. [...] yuriy tral hernia. She was transferred from [facility] for surgical evaluation of possible incarcer ated [...] Cipro. POD 5 she was discharged ho or, tolerating a diabetic diet. Having bowel function. [...] keeping you from eating and drinking, Call [phone]. It is important to stay hydrated! If [...] taking narcotic that contain Tylenol (acetaminophen) Example: [place], Lortab, Vicodin, hydrocodone/APAP, Percocet, Tylenol #3 PAIN MEDICATIONS are ONLY REFILLED during CLINIC APPOINTMENTS. Please call [phone] to schedule an appointment. Your Follow-Up Plan Follow up with ROBIN MEJIA in 2 weeks. Contact information: [address] [facility] [address] Vitals on discharge: Ht 154.9 cm (5' [...] might be different f rom the original. [facility] DEPARTMENT OF SURGERY EMERGENCY GENERAL [...] clinic - [place]. [place] [phone] [facility] [phone] [facility] [address] Aminta Goodwin Md - 11/11/2012 7:40 AM PDT [facility] DEPARTMENT OF SURGERY EMERGENCY GENERAL SURGERY Division of Trauma and Critical Care Attending Physician: Andie Brian MD Progress Note Note Date: 11/11/2012 Admission Date: 11/06/2012 DYLAN ROMERO, [id number] Hospital Day #5 INTERVAL EVENTS none acute [...] mg, Rectal, DAILY PRN, Aminta Wilson MD zowxodpvcn-zjgfgvzgfpdxx-uwhrldhm (aka FIORICET) 50-325-40 mg 1 Tab, 1 [...] Jayne Ponce MD, 1 mg at 11/10/12801 punfnrglnt-ckiyhzkquibwz-sutkdjfn (aka FIORICET) 50-325-40 mg 1 Tab, 1 [...] in preservative free NaCl 0.9% 50 mL BARGEMAN infusion, , Intravenous, KIESHA NUGRANT, Aracely Mccartynato, DO, 0.1 mg at 11/10/12 0748 insulin lispro (aka HUMALOG) injection, , Subcutaneous, MEALS and HS, Kaleb Walker, KALYAN ketorolac (aka TORADOL) injection 30 mg, 30 mg, Intravenous, Q6H PRN, Dione rGimes MD, 30 mg at 11/08/12 1024 lactated [...] diet -add bowel regimen Acute pain -HM BARGEMAN, tylenol -convert to oral pain medication once [...] Fluids: LR 125ml/hr Feeding: NPO Analgesia: Dilaudid BARGEMAN Sedation: not indicated Thromboprophylaxis: enoxaparin Head of [...] Ponce MD, 1 mg at 11/09/12 0855 bhunqiddpd-apbyqddlhrxwq-ouhbzghj (aka FIORICET) 50-325-40 mg 1 Tab, 1 [...] in preservative free NaCl 0.9% 50 mL BARGEMAN infusion, , Intravenous, KIESHA NUOUS, Aracely Cruzo, [...] drainage <30ml for 24hrs Acute pain -HM BARGEMAN, tylenol Diabetes: -insulin gtt not started due [...] Fluids: LR 125ml/hr Feeding: NPO Analgesia: Dilaudid BARGEMAN Sedation: not indicated Thromboprophylaxis: enoxaparin Head of bed: > 30 Ulcer prophylaxis: pepcid Glycemic control: adequate Activity/PT/OT: Ongoing Yogurt: ABX on Probiotics:yes AMINTA WILSON MD General Surgery, R1 Kaleb Martin N P - 11/08/2012 8:49 AM PDT [facility] DEPARTMENT OF SURGERY EMERGENCY GENERAL SURGERY Division of Trauma and Critical Care Attending Physician: Andie Brian MD Progress Note Note Date: 11/08/2012 Admission Date: 11/06/2012 DYLAN ROMERO, [id number] Hospital Day #2 INTERVAL EVENTS NO SUBJECTIVE Pain well controlled; has headache attributed to dilaudid BARGEMAN Tylenol did not help. Flatus: YES Tolerating [...] trials today. -DC ruiz Acute pain -HM BARGEMAN, tylenol Diabetes: -insulin gtt not started due [...] Fluids: LR 125ml/hr Feeding: NPO Analgesia: Dilaudid BARGEMAN Sedation: not indicated Thromboprophylaxis: enoxaparin Head of bed: > 30 Ulcer prophylaxis: pepcid Glycemic control: adequate Activity/PT/OT: Ongoing Yogurt: ABX on Probiotics: No KALEB WALKER NP [facility] [address] [place] [address] elvin Stephens MD - 11/07/2012 9:51 PM [...] 7.33* PCO2 49* PO2 113* HCO3 25 GQONM1YBX 26 K5ZLUYRN 98.3* V5XWEEUQY -- FIO2 60 ABGEXCESS -0.9 Assessment, Medical Decision Making and Plan 1. Incarcerated hernia, now s/p repair and panniculectomy -Binder, pain control, minimize nausea and coughing PRN. -NG clamping trials today. 2. Acute pain -HM BARGEMAN, tylenol 3. Diabetes: -insulin gtt 4. Morbid [...] Dione Grimes MD R-2, General Surgery Pager: [phone] [facility] [place] Department of Surgery Trauma ICU Team Pager (24hrs/day): [phone] I was present with the resident during the history and exam. I discussed the case with the resident and agree with the findings and plan as documented in the resident s note. KELVIN STEPHENS MD [facility] [address] [place] [address] [id number] uOnur patton MD - 11/07/2012 2:37 AM [...] in preservative free NaCl 0.9% 50 mL BARGEMAN infusion Intravenous CON TINUOUS Aracely Flores, DO [...] POD#1 s/p primary repair. 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 criminal attorney and prn tylenol, continue prozac and zyprexa [...] F: probable remain NPO today A: dilaudid criminal attorney, prn tylenol S: prn benzos as she is at home T: will start prophylactic lovenox today H: HOB >30 degrees U: pepcid G: insulin gtt ONUR ALLEN MD, PGY3 [facility] [address] [id number] [place] [address] Onelia Shrestha MD - 11/06/2012 8:41 AM PDT [facility] DEPARTMENT OF SURGERY Division of Trauma and Critical Care Emergency General Surgery / Acute Care Surgery Attending Physician: Andie Brian MD Note Date: 11/06/2012 Admission Date: 11/06/2012 DYLAN ROMERO, [id number] Hospital Day #0 OVERNIGHT EVENTS: anxious SUBJECTIVE: [...] zenia LABS: reviewed and are available in [facility] (if new data) IMAGING: VASCULAR: IMPRESSION: Dylan [...] | | 2018 | Visit | | [address] | | | | | | [place], [place] | | | | | | [address] | | | | | | [phone] | | | | | | | [...] | + +--------+ + + + | SODIUM POC | Routin | 11/06/2012 | Hernia [...] Mae | | | | | | [place] | | | | + + + [...] AMES | [address] | [place], [place] | | | [place] POINT OF CARE | [address] | [address] | | | TESTS | | | [...] MARQUAM | [address] | [place], [place] | | | JUSTINE DAWN OF CARE | [facility] | [address] | | | TESTS | | | [...] [facility] | [address] | [place] [address] | | | SERVICES, CORE | PARK [...] [facility] | [address] | [place] [address] | | | SERVICES, CORE | CLARENCE [...] [facility] | [address] | [place] [address] | | | LYDIA RANGEL | PARK [...] - MARQUAM | [address] | [place], [place] | | | JUSTINE DAWN OF CARE | [facility] | [address] | | | TESTS | | | [...] (H) | 60 - 99 mg/dL | [facility] - | | | GLUCOSE, [...] YAKOVAM | [address] | [place], [place] | | | [place] POINT OF CARE | [address] | [address] | | | TESTS | | | [...] AMES | [address] | [place], [place] | | | JUSTINE DAWN OF JAKY | [facility] | [address] | | | TESTS | | | [...] - MARQUAM | [address] | [place], [place] | | | JUSTINE DAWN OF CARE | [facility] | [address] | | | TESTS | | | [...] (H) | 60 - 99 mg/dL | [facility] - | | | GLUCOSE, [...] + + | [facility] | [address] | [place], [place] | | | JUSTINE DAWN OF [facility] | [address] | [address] | | | TESTS | | | [...] [facility] | [address] | [place] [address] | | | SERVICES, CORE | PARK [...] the MDRD equation recommended by the | [facility] | | National Kidney Disease Education Program. [...] [facility] | [address] | [place] [address] | | | LYDIA RANGEL | CLARENCE [...] [facility] | [address] | [place] [address] | | | SERVICES, CORE | CLARENCE [...] (H) | 60 - 99 mg/dL | [facility] - | | | GLUCOSE, [...] AMES | [address] | [place], [place] | | | [place] POINT OF CARE | [address] | [address] | | | TESTS | | | [...] KWAKU | [address] | [place], [place] | | | JUSTINE DAWN OF JAKY | [address] | [address] | | | TESTS | | | [...] KWAKU | [address] | [place], [place] | | | JUSTINE DAWN OF JAKY | [facility] | [address] | | | TESTS | | | [...] (H) | 60 - 99 mg/dL | [facility] - | | | GLUCOSE, [...] AMES | [address] | [place], [place] | | | [place] POINT OF CARE | [address] | [address] | | | TESTS | | | [...] KWAKU | [address] | [place], [place] | | | JUSTINE DAWN OF JAKY | [address] | [address] | | | TESTS | | | [...] [facility] | [address] | [place] [address] | | | SERVICES, CORE | PARK [...] [facility] | [address] | [place] [address] | | | SERVICES, CORE | PARK [...] | + + + + + | [facility] | [address] | [place] [address] | | | SERVICES, CORE | CLARENCE [...] MARQUAM | [address] | [place], [place] | | | JUSTINE DAWN OF CARE | [address] | [address] | | | TESTS | | | [...] MARPATAM | [address] | [place], [place] | | | [place] POINT OF CARE | [address] | [address] | | | TESTS | | | [...] AMES | [address] | [place], [place] | | | JUSTINE DAWN OF CARE | [facility] | [address] | | | TESTS | | | [...] | | | Final CULTURE | | [place] | | | | RESULT:>100,000 cfu/ml | [...] + | [facility] | [address] | [place] [address] | | | [place] | | | | + + + [...] | + + + + + | [facility] | [address] | [place] [address] | | | SERVICES, CORE | CLARENCE [...] [facility] | [address] | [place] [address] | | | LYDIA RANGEL | CLARENCE [...] 90 | 60 - 99 mg/dL | [facility] - | | | GLUCOSE, [...] AMES | [address] | [place], [place] | | | JUSTINE DAWN OF [facility] | [address] | [address] | | | TESTS | | | [...] the MDRD equation recommended by the | [facility] | | National Kidney Disease Education Program. [...] [facility] | [address] | [place] [address] | | | LYDIA RANGEL | CLARENCE [...] [facility] | [address] | [place] [address] | | | SERVICES, CORE | CLARENCE [...] | + + + + + | [facility] | [address] | [place] [address] | | | [facility] | [address] [...] 86 | 60 - 99 mg/dL | [facility] - | | | GLUCOSE, [...] KWAKU | [address] | [place], [place] | | | [place] POINT OF CARE | [address] | [address] | | | TESTS | | | [...] + + | Performing | Address | City/State/[facility] Cent[facility]ode | Phone Number | | Organization | | | | + + + + + | [facility] AMES | [address] | [place], [place] | | | JUSTINE DAWN OF JAKY | [facility] | [address] | | | TESTS | | | [...] KWAKU | [address] | [place], [place] | | | [place] POINT OF [facility] | [facility] | [address] | | | TESTS | | | [...] | + + + + + | [facility] | [address] | [place] [address] | | | SERVICES, CORE | [address] | | | + + + + + MAGNESIUM, PLASMA (11/08/2012 7:48 AM PDT) + +---------+ + + + | Component | Value | Ref Range | Performed | Pathologist | | | | | At | Signature | + +---------+ + + + | MAGNESIUM,P | 1.4 (L) | 1.8 - 2.5 mg/dL | [facility] | | | LASMA | | | [...] [facility] | [address] | [place] [address] | | | SERVICES, CORE | PARK [...] | + + + + + | [facility] | [address] | [place] [address] | | | CLAIRE, CORE | CLARENCE [...] KWAKU | [address] | [place], [place] | | | JUSTINE DAWN OF CARE | [facility] | [address] | | | TESTS | | | | + + + + + CAPILLARY BLOOD GLUCOSE (NO CHG), POC (11/07/2012 11:53 PM PDT) + +-------+ + + + | Component | Value | Ref Range | Performed | Pathologist | | | | | At | Signature | + +-------+ + + + | BLOOD | 94 | 60 - 99 mg/dL | [facility] - | | | GLUCOSE, [...] KWAKU | [address] | [place], [place] | | | [place] POINT OF CARE | [address] | [address] | | | TESTS | | | [...] | | | GLUCOSE, | | | [facility] | | | [...] AMES | [address] | [place], [place] | | | JUSTINE DAWN OF JAKY | [facility] | [address] | | | TESTS | | | [...] | + + + + + | [facility] | [address] | [place] [address] | | | SERVICES, LYDIA | CLARENCE [...] [facility] | [address] | [place] [address] | | | SERVICES, CORE | CLARENCE [...] + | [facility] | [address] | [place] [address] | | | SERVICES, CORE | PARK [...] | | + +---------+ + + | [facility] DEPARTMENT OF | | | [...] [facility] | [address] | [place] [address] | | | SERVICES, CORE | PARK [...] [facility] | [address] | [place] [address] | | | SERVICES, CORE | PARK [...] [facility] | [address] | [place] [address] | | | SERVICES, CORE | CLARENCE [...] (H) | 60 - 99 mg/dL | [facility] - | | | GLUCOSE, | | [...] AMES | [address] | [place], [place] | | | ABRAHAN DAWN | [facility] | [address] | | | TESTS | | | [...] AMES | [address] | [place], [place] | | | JUSTINE DAWN OF JAKY | [facility] | [address] | | | TESTS | | | [...] | | | | | mmol/L | [facility] | | [...] KW[facility] | [address] | [place], [place] | | | JUSTINE DAWN OF CARE | [facility] | [address] | | | TESTS | | | [...] - [facility] | [address] | [place], [place] | | | JUSTINE DAWN OF CARE | [facility] | [address] | | | TESTS | | | [...] + + + | [facility] | [address] | [place], [place] | | | L[place] POINT OF CARE | [address] | [address] | | | TESTS | | | | + + + + + GLUCOSE (ART) POC NOAM (11/06/2012 11:08 AM PDT) + +---------+ + [...] [facility] | [address] | [place], [place] | | | [place] POINT OF CARE | [address] | [address] | | | TESTS | | | [...] - [facility] | [address] | [place], [place] | | | JUSTINE DAWN OF CARE | [address] | [address] | | | TESTS | | | [...] AMES | [address] | [place], [place] | | | JUSTINE DAWN OF CARE | [address] | [address] | | | TESTS | | | | + + + + + HEMOGLOBIN (ART), POC NOAM (11/06/2012 11:08 AM PDT) + +---------+ + [...] [facility] | [address] | [place], [place] | | | [place] POINT OF CARE | [facility] | [address] | | | TESTS | | | [...] [facility] | [address] | [place], [place] | | | JUSTINE DAWN OF CARE | [address] | [address] | | | TESTS | | | [...] AMES | [address] | [place], [place] | | | JUSTINE DAWN OF JAKY | [facility] | [address] | | | TESTS | | | [...] [facility] | [address] | [place] [address] | | | SERVICES, | [address] [...] (H) | 60 - 99 mg/dL | [facility] - | | | GLUCOSE, [...] AMES | [address] | [place], [place] | | | [place] POINT OF CARE | [address] | [address] | | | TESTS | | | [...] [facility] | [address] | [place] [address] | | | SERVICES, | [address] [...] [facility] | [address] | [place] [address] | | | SERVICES, | [address] [...] | + + + + + | [facility] | [address] | [place] [address] | | | SERVICES, CORE | CLARENCE [...] [facility] | [address] | [place] [address] | | | SERVICES, CORE | PARK [...] + | [facility] | [address] | [place] [address] | | | SERVICES, CORE | PARK [...] [facility] | [address] | [place] [address] | | | SERVICES, CORE | PARK [...] the MDRD equation recommended by the | [facility] | | National Kidney Disease Education Program. [...] [facility] | [address] | [place] [address] | | | LYDIA RANGEL | PARK [...] view image for the detailed interpretation from [employer] results. | CARDIOLOGY | + + + + + + + + | Performing | Address | City/State/Zipcode | Phone Number | | Organization | | | | + + + + + | [facility] | [address] | [place], [place] | | | CARDIOLOGY | [address] | [address] | | + + + + + [...] LABORATORY | [address] | [place] [address] | | | SERVICES, CORE | [address] | | | + + + + + MADAY CEDILLO (11/06/2012 4:51 AM PDT) + + + + + + | Component | Value | Ref Range | Performed | Pathologist | | | | | At | Signature | + + + + + + | COLOR(UR) | Darlin | (none) | [facility] | | | | | [...] | + + + + + | [facility] | [address] | [place] [address] | | | SERVICES, CORE | CLARENCE [...] | 1 tablet | | | | aitzwjzlrv-tpnokiiaojbno-sqfeaezd | | 13 8:02 | | | [...] 13 7:36 | | | | | BARGEMAN infusion intravenous, | | PM PDT | [...] | | | | | 1023, Until 11/12/12 at 1022, | | | | | [...] PDT | | | | | Until [facility] 11/11/12 at 0702 | | | [...] PDT | | | | | on 11/09/12 at 0915, Until | | | | [...] +---+---+ + +---------+ +--------+--------+---+ | LORazepam (jack ATJORY) | New Bag | 11/07/19 | 0.5 [...] LORazepam (jack ATIVAN) | New Bag | 11/10/19 | 0.5 mg | mL/hr | | | injection 0.5-1 mg 0.5-1 mg, | | 13 12:33 | | | | | intravenous, EVERY 6 HOURS | | PM PDT | | | | | NEEDED, Starting 11/07/12 at | | | | | | | 0315, Until Thu11/10/12 at 1019, | | | | | [...] | | at 2100, Last dose on Tu11/09/12 | | | | | | | [...] | +---+---+ + +---------+ +------+--------+---+ | nalbuphine (jack [place]STER) | New Bag | 11/11/19 [...] | | | | oral, NEEDED, Starting Thu | | AM PDT | | [...] +---+---+ + +-------+ + +---+---+ | senna-docusate (jack Louie) | Given | 11/13/19 | 1 tablet [...]
--- OUTSIDE RECORDS SUMMARY | ~2019-05-23 | XMS | Encounter Summary ---
Demographics + + + | Address | [address] | | | [place] [address] | + + + | Home Phone [...] [place], [place] | | | | | [address] | | + + + + + | Ellie Vang | ECON | Unknown | | + + + + + Care Team Providers + +------+ + | Care Window Machine Operator Name | Role | Phone [...] | | | | | Ventral | [address] | [id number] | | | | | hernia | Phone: | Cloud | | | | | without | [phone] | [address] | | | | | obstruction | Fax: | [place], | | | | | or gangrene | [phone] | [place] [address] | | | | | Mixed | | Phone: | | | | | hyperlipidem | | [phone] | | | | | ia Diabetes | | Fax: | | | | | mellitus | | [phone] | | | | | type 2 [...] | | | | Mailcode: Center | [address] | Ventral hernia | | | | for Health and | [phone] | without obstruction | | | | Healing, [address] | | or gangrene; Mixed | | | | [place], [place] | | hyperlipidemia; | | | | [address] | | 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[phone] | | type 2 without | | [...] to POC and will call or send [place] message if any issues. documented in this [...] tongue once daily., Disp: , Rfl: CALCIUM CRB&CVG-M0-NLB20-GENIS ORAL, Take 2 tablets by mouth two [...] [facility] Social History Social History Marital status: Single Spouse name: N/A Number of children: 1 Years of education: N/A Occupational History disabled None Social History Main Topics Smoking status: Former Smoker Smokeless tobacco: Never Used Alcohol use No Drug use: No Sexual activity: Not on file Social History Narrative Updated 11/09/15 She lives in [place] with her mother and her sister (also her caregiver) lives in an apa rtment/duplex below. She has 2 grandchildren (age 4 and 7) who live with her daughter and son-in-law Her boyfriend lives in [place] HFpEF, DM2, HTN, Sleep Apnea (unable to [...] program here and refer her to our digital strategy specialist who also has expertise in physical [...] and documenting after this visit. Ronna SANTOSP TRAILER TECHNICIAN Bariatric Surgery Nurse Practitioner [facility] | [address] | [place], [place] | [address] | documented in this e ncounter Plan [...] | | | | | [place], [place] | | | | | | [address] | | | | | | [phone] | | | | | | | | +--------+ + + + + documented as of this encounter Results X-RAY MIRIAM CASTELLON (06/07/2018 9:47 AM PST) + + | Specimen | + + | | + + + + + | Narrative | Performed At | + + + | EXAM: Esophagram with engineering specialist radiograph HISTORY: RYGB 03/01/2018, | [facility] | | vomiting/pain ever since COMPARISON: 04/27/2018 CT TECHNIQUE: | RADIOLOGY VOICE | | Licensed Life And Health Agent radiograph was performed. Single contrast exam of the esophagus, | RECOGNITION 2 | | gastric pouch, and gastrojejunostomy in upright positioning. | | | Radiation dose reduction technique was maximized where appropriate | | | using pulsed fluoroscopy and fluoro-store images. Fluoro Time 57 | | | second(s) FINDINGS: Licensed Life And Health Agent shows stone in the upper pole [...] AM PST EXAM: Esophagram | | with engineering specialist radiograph HISTORY: RYGB 03/01/2018, vomiting/pain ever since COMPARISON: | | 04/27/2018 CT TECHNIQUE: Licensed Life And Health Agent radiograph was performed. Single contrast exam of the | | esophagus, gastric pouch, and gastrojejunostomy in upright positioning. Radiation dose | | reduction technique was maximized where appropriate using pulsed fluoroscopy and | | fluoro-store images. Fluoro Time 57 second(s) FINDINGS:Licensed Life And Health Agent shows stone in the upper | [...] | + + + + + | [facility] | [address] | [place] [address] | | | SERVICESLYDIA | [address] [...] (H)Comment: Hgb A1C | <5.7 % | [facility] | | | A1C | Interpretive [...] | [facility] | | considered for monitoring laborer marine terminal glycemic control in patients with: | [...] + | [facility] | [address] | [place] [address] | | | SERVICES, SPECIAL | PARK [...] | | | | | determined by [employer] ([employer]) | | | | | | Laboratories. See | | | | | | Compliance Statement B: | | | | | | [email or web address] | | | | | | by [employer],[address] | | | | | | Liliana Martinez [facility] [place] | | | | | | [id number] | | | | | | [phone]. | | | | | | comIsmael [...] [facility] | [address] | [place], [place] | | | [facility] | | [id number] | | + + + + + [...] + | [facility] | [address] | [place] [address] | | | SERVICES, CORE | PARK [...] [facility] | [address] | [place] [address] | | | SERVICES, CORE | CLARENCE [...] [facility] | [address] | [place] [address] | | | SERVICES, CORE | CLARENCE [...] [facility] | [address] | [place] [address] | | | SERVICES, CORE | PARK [...] [facility] | [address] | [place] [address] | | | SERVICES, CORE | PARK [...] [facility] | [address] | [place] [address] | | | SERVICES, CORE | PARK [...]
--- OUTSIDE RECORDS SUMMARY | ~2019-05-23 | XMS | Encounter Summary ---
Demographics + + + | Address | [address] | | | [place] [address] | + + + | Home Phone [...] [place], [place] | | | | | [address] | | + + + + + | Ellie Vang | ECON | Unknown | | + + + + + Care Team Providers + +------+ + | Care Internet Webmaster Name | Role | Phone | + +------+ + | Kenyatta Cardenas MD | PCP | | + +------+ + Encounter Details +--------+ + + + + | Date | Type | Department | Care Team | Description | +--------+ + + + + | 03/02/ | Optometrist/Practice Owner | Digestive Health | Keren Allen, | | | 2019 | | Center at [facility] [address] | AGACNP [address] | | | | | [address] | [place] [facility] [place] | | | | | Mailcode: [place] | [address] | | | | | for Health and | | | | | | [facility] 2 | | | | | | [place], [place] | | | | | | [address] | | | | | | | [...] | | | | | [place], [place] | | | | | | [address] | | | | | | [phone] | | | | | | | | +--------+ + + + + documented as of this encounter Visit Diagnoses Not on filedocumented in this encounter"
--- OUTSIDE RECORDS SUMMARY | ~2019-05-23 | XMS | Encounter Summary ---
Demographics + + + | Address | [address] | | | [place] [address] | + + + | Home Phone [...] + | Katalina Padilla | ECON | [address] | | | | | [place], [place] | | | | | [address] | | + + + + + | Ellie Vang | ECON | Unknown | | + + + + + Care Team Providers + +------+ + | Care Lap Machine Tender Name | Role | Phone [...] | [address] | Ave [place], [place] | | | | | Mailcode: [facility] | [address] | | | | | [facility] | [phone] | | | | | and Healing, | | | | | | [address] | | | | | | [facility] [place] | | | | | | [address] | | | | | | [phone] | | | +--------+ + + + [...] | | | | | [place] | | | | | | [address] | | | | | | [phone] | | | | | | | | +--------+ + + + + documented as of this encounter Visit Diagnoses Not on filedocumented in this encounter"
--- OUTSIDE RECORDS SUMMARY | ~2019-05-23 | XMS | Encounter Summary ---
Demographics + + + | Address | [address] | | | [place] [address] | + + + | Home Phone [...] [place], [place] | | | | | [address] | | + + + + + | Ellie Vang | ECON | Unknown | | + + + + + Care Team Providers + +------+ + | Care Research Food Technologist Name | Role | Phone | [...] | on | Center at [place] [id number] | | | | | | [address] | | | | | | Mailcode: [place] | | | | | | for Health and | | | | | | [facility], [facility] 2 | | | | | | [place], [place] | | | | | | [address] | | | | | | [phone] | | | +--------+ + + + [...] [place] | | | | | | [address] | | | | | | [phone] | | | | | | | | +--------+ + + + + documented as of this encounter Visit Diagnoses Not on filedocumented in this encounter"
--- OUTSIDE RECORDS SUMMARY | ~2019-05-23 | XMS | Encounter Summary ---
Demographics + + + | Address | [address] | | | [place] [address] | + + + | Home Phone [...] [place], [place] | | | | | [address] | | + + + + + | Ellie Vang | ECON | Unknown | | + + + + + Care Team Providers + +------+ + | Care Admitting Interviewer Name | Role | Phone | [...] | HA Roldan | | | with EQUIPMENT DRIVER | | hypertension | [address] | | | | | Right | [address] | [address] | | | | | heart | [place], [place] | [place], | | | | | failure | [address] | [place] | | | | | ([facility]) Type | Phone: | [address] | | | | | 2 diabetes | [phone] | | | | | | mellitus | Fax: | | | | | | without | [phone] | | | | | | complication | | | | | | | , with | | | | | | | long-term | | | | | | | current use | | | | | | | of insulin | | | | | | | ([facility]) | | | +--------+ + + + [...] | | | [address] | [facility] [address] | (Primary Dx); | | | | Mailcode: Center | [place], [place] | 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[facility] and | [address] | with insulin therapy | | | | [address] | | ([facility]) | | | | [place], [place] | | | | | | [address] | | | | | | [phone] | | | +--------+---------+ + + + [...] Follow-Up Patient referred by: Randell Franks MD [address] [place] [address] Documented time of visit: 10:33 to 10:55 (22 minutes edyu-ve-jkqh with patient) Surgery: Gastric Bypass Date of [...] latvian yogurt-light and fit, protein bar from [employer]. Unable to keep protei n shakes down. Fluid choices: water-4-5 bottles per day Supplementation: Flinstones, iron, vitamin D, vitamin C, Citracal supplement x 2 in the mor eusebio and 2 at night, magnesium, potassium, L12-vjxdnnun today Assessment: Vomiting likely due to volume [...] multivitamin & mineral (with iron) supplement, 2/day -6827-8586 mg calcium citrate with vitamin D/day (take in divided doses, not within 2 hour s of multivitamin or iron supplement) -500 mcg/day sublingual B12 supplement (or monthly injections) Continued to reinforce importance of mindful eating. Continue to increase physical activity. Follow up in [address],LD Pager# [phone] Phone: [phone] documented in this e ncounter Plan of [...] Cardiology | Randlel Franks, | | | 2018 | Visit | | [address] | | | | | | [place], [place] | | | | | | [address] | | | | | | [phone] | | | | | | | | +--------+ + + + + documented as of this encounter Procedures + +--------+ + + + | Procedure Name | Priori | Date/Time | Associated Diagnosis | Comments | | | ty | | | | + +--------+ + + + | TX MNT RE-ASSESSMNT | Routin | 04/01/2018 | [...]
--- OUTSIDE RECORDS SUMMARY | ~2019-05-23 | XMS | Encounter Summary ---
Demographics + + + | Address | [address] | | | [place] [address] | + + + | Home Phone [...] [place], [place] | | | | | [address] | | + + + + + | Ellie Vang | ECON | Unknown | | + + + + + Care Team Providers + +------+ + | Care Java Jsf Developer Name | Role | Phone | [...] 2015 | | Preventive at [facility] | MD [address] | | | | | [address] | [place], [place] | | | | | Mailcode: [facility] | [address] | | | | | [facility] | [phone] | | | | | and [address], | | | | | | [address] | | | | | | [place], [place] | | | | | | [address] | | | | | | [phone] | | | +--------+ + + + [...] | | | | | [place], [place] | | | | | | [address] | | | | | | [phone] | | | | | | | | +--------+ + + + + documented as of this encounter Visit Diagnoses Not on filedocumented in this encounter"
--- OUTSIDE RECORDS SUMMARY | ~2019-05-23 | XMS | Encounter Summary ---
Demographics + + + | Address | [address] | | | [place] [address] | + + + | Home Phone [...] [place], [place] | | | | | [address] | | + + + + + | Ellie Vang | ECON | Unknown | | + + + + + Care Team Providers + +------+ + | Care Resolution Specialist Name | Role | Phone | [...] 2018 | | Preventive at [facility] | MD [address] | (Phentermine 37.5mg) | | | | [address] | [place], [place] | | | | | Mailcode: [place] | [address] | | | | | [facility] | [phone] | | | | | and [address], | | | | | | [address] | | | | | | [place], [place] | | | | | | [address] | | | | | | [phone] | | | +--------+ + + + [...] | | | | | [place] | | | | | | [address] | | | | | | [phone] | | | | | | | | +--------+ + + + + documented as of this encounter Visit Diagnoses Not on filedocumented in this encounter"
--- OUTSIDE RECORDS SUMMARY | ~2019-05-23 | XMS | Encounter Summary ---
Demographics + + + | Address | [address] | | | [place] [address] | + + + | Home Phone [...] [place], [place] | | | | | [address] | | + + + + + | Ellie Vang | ECON | Unknown | | + + + + + Care Team Providers + +------+ + | Care Plastic Cablemaking Machine Operator Name | Role | Phone [...] | | | | | | | [facility] for | | | | | | | Health and | | | | | | | Healing, | | | | | | | Building [address] | | | | | | | [place], [place] | | | | | | | [address] | | | | | | | Phone: | | | | | | | [phone] | | | | | | | Fax: | | | | | | | [phone] | +--------+--------+ + + + + Encounter [...] | [address] | Lesly Gutiérrez [place], | 2 diabetes mellitus | | | | Mailcode: Center | [place] [address] | (HCC) | | | | for Health and | | | | | | [facility], [facility] 2 | | | | | | [place], [place] | | | | | | [address] | | | | | | [phone] | | | +--------+---------+ + + + [...] of Visit: 12:29 to 12:57 (28 minutes kgpt-cz-uybu with patient) SUBJECTIVE: Trying to follow a [...] post-surgery diet progression. 4. Call or send [place] [employer] message to dietitian with any questions. Contact information was provided. Follow up with dietitian prior to surgery to review post-surgical recommendations. Yuli Childs RD, CNSC, LD Pager# [phone] documented in this enco unter Plan of [...] | | 2018 | Visit | | [address] | | | | | | [place], [place] | | | | | | [address] | | | | | | [phone] | | | | | | | [...]
--- OUTSIDE RECORDS SUMMARY | ~2019-05-23 | XMS | Encounter Summary ---
Demographics + + + | Address | [address] | | | [place] [address] | + + + | Home Phone [...] + | Katalina Padilla | ECON | [address] | | | | | [place], [place] | | | | | [address] | | + + + + + | Ellie Vang | ECON | Unknown | | + + + + + Care Team Providers + +------+ + | Care Service Center Supervisor Name | Role | Phone | [...] | | 2015 | | Center at [facility] [address] | [address] | | | | | [place] [address] | Lesly Gutiérrez [place], | | | | | Mailcode: [place] | [place] [address] | | | | | for Health and | | | | | | [facility] [place] [address] | | | | | | [place], [place] | | | | | | [address] | | | | | | [phone] | | | +--------+ + + + [...] | | | | | [place] | | | | | | [address] | | | | | | [phone] | | | | | | | | +--------+ + + + + documented as of this encounter Visit Diagnoses Not on filedocumented in this encounter"
--- OUTSIDE RECORDS SUMMARY | ~2019-05-23 | XMS | Encounter Summary ---
Demographics + + + | Address | [address] | | | [place] [address] | + + + | Home Phone [...] [place], [place] | | | | | [address] | | + + + + + | Ellie Vang | ECON | Unknown | | + + + + + Care Team Providers + +------+ + | Care Executive Assistant To General Counsel Name | Role | Phone | + [...] from | | 2016 | | at [facility] [address] | [place] [address] [facility] | | | | [place] Mailcode: | Ave [place], [place] | | | | | [address] | [address] | | | | | Health and Healing, | [phone] | | | | | | | | | | | [place], [place] | | | | | | [address] | | | | | | [phone] | | | +--------+ + + + [...] | | | | | [place] | | | | | | [address] | | | | | | [phone] | | | | | | | | +--------+ + + + + documented as of this encounter Visit Diagnoses Not on filedocumented in this encounter"
--- OUTSIDE RECORDS SUMMARY | ~2019-05-23 | XMS | Encounter Summary ---
Demographics + + + | Address | [address] | | | [place] [address] | + + + | Home Phone [...] [place], [place] | | | | | [address] | | + + + + + | Ellie Vang | ECON | Unknown | | + + + + + Care Team Providers + +------+ + | Care Volunteer Fire Fighter Name | Role | Phone | + [...] on | Center at [facility] [address] | LEGAL TRANSCRIPTIONIST [address] | | | | | [place] | [facility] 350 | | | | | Mailcode: Center | [place], [place] | | | | | [facility] and | [address] | | | | | [facility] 2 | [phone] | | | | | [place], [place] | | | | | | [address] | | | | | | [phone] | | | +--------+ + + + [...] | | | | | [place], [place] | | | | | | [address] | | | | | | [phone] | | | | | | | | +--------+ + + + + documented as of this encounter Visit Diagnoses Not on filedocumented in this encounter"
--- OUTSIDE RECORDS SUMMARY | ~2019-05-23 | XMS | Encounter Summary ---
Demographics + + + | Address | [address] | | | [place] [address] | + + + | Home Phone [...] [place], [place] | | | | | [address] | | + + + + + | Ellie Vang | ECON | Unknown | | + + + + + Care Team Providers + +------+ + | Care Banquet Coordinator Name | Role | Phone | [...] | | 2018 | | Center at [facility] [address] | ACNP [address] | | | | | [address] | [place], [place] | | | | | Mailcode: [place] | [address] | | | | | for Health and | [phone] | | | | | [place] [address] | | | | | | [place], [place] | | | | | | [address] | | | | | | [phone] | | | +--------+ + + + [...] | | | | | [place] | | | | | | [address] | | | | | | [phone] | | | | | | | | +--------+ + + + + documented as of this encounter Visit Diagnoses Not on filedocumented in this encounter"
--- OUTSIDE RECORDS SUMMARY | ~2019-05-23 | XMS | Encounter Summary ---
Demographics + + + | Address | [address] | | | [place] [address] | + + + | Home Phone [...] [place], [place] | | | | | [address] | | + + + + + | Ellie Vang | ECON | Unknown | | + + + + + Care Team Providers + +------+ + | Care Civil Clerk Name | Role | Phone | [...] Order | [address] | [place], [place] | | | | | [address] | [address] | | | | | Rd Mailcode: [facility] | [phone] | | | | | Francesco Peres | | | | | | [address] [place], [place] | | | | | | [address] | | | | | | [phone] | | | +--------+ + + + [...] | | | | | [place], [place] | | | | | | [address] | | | | | | [phone] | | | | | | | | +--------+ + + + + documented as of this encounter Results RICARDO (06/23/2018 3:58 PM PST) + + | Specimen | + + | | + + + +--------- -----+ | Narrative | Roseanna d At | + +--------- -----+ | MRN: | [facility] | | [id number] Date: 06/23/2018Patient Name: Elzbieta Curtis #: | ENDOSCOP Y | | [id number] of : 1975CSN: [id number] Type: | | | AmbulatoryRoom: SORProcedure: Upper GI | | | endoscopyIndications: Nausea with vomiting, Status post | | | Vktk-kg-CNqgancdkz: KALEB MILES MD (Doctor), JOSE | | | NASIMA, Flight Steward | | | (Flight Steward)Referring MD: DANIELLE GARCÍAPRequestdonya | | | Provider: [...] | | | The Olympus GIF-[id number] Gastroscope #[id number] was | | | introduced through the [...] endoscope without resistance. The | | | ahqwi-qj-wyidwmx limb was characterized by healthy appearing | [...] Initiated On: | | | 06/23/2018 3:58 [facility] Letter to: RADHA MICHAEL DO [...]
--- OUTSIDE RECORDS SUMMARY | ~2019-05-23 | XMS | Encounter Summary ---
Demographics + + + | Address | [address] | | | [place] [address] | + + + | Home Phone [...] [place], [place] | | | | | [address] | | + + + + + | Ellie Vang | ECON | Unknown | | + + + + + Care Team Providers + +------+ + | Care Pararescue Manager Name | Role | Phone | [...] | | 2019 | | Preventive at [facility] | [address] | (PHENTERMINE 37.5 mg | | | | [address] | [place], [place] | ) | | | | Mailcode: [place] | [address] | | | | | [facility] | [phone] | | | | | and [address], | | | | | | [address] | | | | | | [place], [place] | | | | | | [address] | | | | | | [phone] | | | +--------+--------+ + + + [...] [place] | | | | | | [address] | | | | | | [phone] | | | | | | | | +--------+ + + + + documented as of this encounter Visit Diagnoses Not on filedocumented in this encounter"
--- OUTSIDE RECORDS SUMMARY | ~2019-05-23 | XMS | Encounter Summary ---
Demographics + + + | Address | [address] | | | [place] [address] | + + + | Home Phone [...] [place], [place] | | | | | [address] | | + + + + + | Ellie Vang | ECON | Unknown | | + + + + + Care Team Providers + +------+ + | Care Trade Promotion Analyst Name | Role | Phone | [...] | | | | | obesity | [place], [place] | | | | | | (HCC) | [address] | | | | | | Procedures | Phone: | | | | | | PHYSICAL | | | | | | | THERAPY | Fax: | | | | | | REFERRAL | [phone] | | +--------+--------+ + + + + Encounter Details +--------+ + + + + | Date | Type | Department | Care Team | Description | +--------+ + + + + | 06/22/ | Deputy Prosecuting Attorney | Digestive Health | Ion Pandey, | Pre-op evaluation | | 2016 | | Center at [facility] [address] | [address] | (Primary Dx); Morbid | | | | [address] | [place], [place] | obesity (HCC) | | | | Mailcode: Center | [address] | | | | | for Health and | | | | | | Healing, [address] | | | | | | [place], [place] | | | | | | [address] | | | | | | [phone] | | | +--------+ + + + [...] | | | | | [place], [place] | | | | | | [address] | | | | | | [phone] | | | | | | | | +--------+ + + + + documented as of this encounter Visit Diagnoses + + | Diagnosis | + + | Pre-op evaluation - Primary Preoperative examination, unspecified | + + | Morbid obesity (HCC) Morbid obesity | + + documented in this encounter"
--- OUTSIDE RECORDS SUMMARY | ~2019-05-23 | XMS | Encounter Summary ---
Demographics + + + | Address | [address] | | | [place] [address] | + + + | Home Phone [...] [place], [place] | | | | | [address] | | + + + + + | Ellie Vang | ECON | Unknown | | + + + + + Care Team Providers + +------+ + | Care Anesthesia Resident Name | Role | Phone | [...] Mailcode:OP14B | | | | | | [facility] | | | | | | [place], [place] | | | | | | [address] | | | | | | [phone] | | | +--------+ + + + [...] | | | | | [place], [place] | | | | | | [address] | | | | | | [phone] | | | | | | | [...] [address] | | | | | | [address] | | | | | | | | | | | | [place] | | | | | | [address] | | | | | | DrRenee [...] | | | | artery. A 5.5 Ivorian | | | | | | [...]
--- OUTSIDE RECORDS SUMMARY | ~2019-05-23 | XMS | Encounter Summary ---
Demographics + + + | Address | [address] | | | [place] [address] | + + + | Home Phone [...] [place], [place] | | | | | [address] | | + + + + + | Ellie Vang | ECON | Unknown | | + + + + + Care Team Providers + +------+ + | Care Glass Cylinder Flanger Name | Role | Phone | + [...] | | | | | Procedures | [place], [place] | [place], [place] | | | | | [place]ULT TO | [address] | [address] | | | | | CAR | Phone: | Phone: | | | | | PREVENTATIVE | [phone] | [phone] | | | | | [facility] - | Fax: | Fax: | | | | | LIPIDS | [phone] | [phone] | +--------+--------+ + + + + Encounter Details +--------+---------+ + + + | Date | Type | Department | Care Team | Description | +--------+---------+ + + + | 09/11/ | Office | Cardiology | Olga Lidia Montanez, | 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 | Visit | Preventive at [facility] | [address] | BMI of 70 and over, | | | | [address] | [address] | adult (HCC) (Primary | | | | Mailcode: CH9A | [place], [place] | Dx) | | | | [facility] | [address] | | | | | and Healing, | | | | | | [address] | | | | | | [place], [place] | | | | | | [address] | | | | | | [phone] | | | +--------+---------+ + + + [...] appointment, Dietitian: Olga Lidia Montanez RD, LD [facility] Bariatric department (to reschedule classes): [phone] Goals: 1. Try to stop buying Pop-Tarts 2. Replace afternoon snack (think of this as lunch) with vegetables or fruit -cucumbers, carrots, broccoli, cauliflower, etc. -try making ranch dip w/ nonfat plain yogurt (regular or Polish) (or mix yogurt w/ salsa; o r chipotle hot sauce & stillaguamish juice) 3. Snack ideas: -fruit -vegetables (with hummus or yogurt dip) -Polish yogurt - light (have w/ fruit if you're still hungry) -applesauce - unsweetened, w/ lowfat string cheese -1/4 cup nuts -lowfat string cheese -low-fat or non-fat cottage cheese w/ tomatoes 4. Aim for 60-80 grams of protein a day (see list) 5. Add Polish yogurt to breakfast Heart Protection Kitchen from [facility] Healthy eating made simple. What: FREE heart-healthy cooking demonstrations led by guest printing engineer and nutrition experts. Samples are provided! Where: [facility] ([facility]), September, 2nd floor teaching kitchen When: All classes from 11:00am-12:00pm ? October 12 (led by Dr. Paulino Carreno MD) Please contact Keerthi Boyer at [phone] or email at [email or web address] for information on upcoming classes and to register. Space is limited - reserve your seat today! Want more info on what to eat? Watch the [employer] video, "Healthy Eating 101," at [email or web address]/[email or web address] documented in this encounter Progress Notes Olga Lidia Montanez RD - 09/11/2017 2:30 PM PSTFormatting of this note might be different fro m the original. [facility], Nutrition Consultation Referring provider: Dr. Randell Franks MD Referring diagnosis: obesity, HF, DM2 Visit type: Initial; ddwc-nh-ldwd visit with patient Questions/Information desired today: Hoping [...] Still has bariatric notebooks at home. Per Minilogsbarron message from Dr. Pandey 09/10/17: "Just tell [...] & 1% milk; occ w/ applesauce or Polish yogurt No L S (3pm): pop-tart or [...] too expensive. Occ fruit bowls from [facility]. Vegetables: every day w/ dinner [...] in PT 2x/week for bariatric program (in [place]) UBW: 385-391 lbs Max weight: 529 lbs Weight history: lost from 495 lbs to 383 lbs in 6284-6146 on Atkins diet ANTHROPOMETRICS: Height: Ht Readings from Last 1 Encounters: 09/11/17 1.549 m (5' 1") Weight: Wt Readings from Last 1 Encounters: 09/11/17 176.5 kg (389 lb 3.2 oz) 11/28/16 179.443 kg (395 lb 10 oz) Body mass index is 73.54 kg/m. Weight change management consultant the past year: 6 lb wt loss [...] weight loss; anticipate excellent compliance in the [facility] surgery program. Currently eating energy-dense/nurient-poor foods [...] of protein a day - add light Polish yogurt to breakfast; include lean protein with PM snack/lunch 3. D/c carbonated beverages (e.g., diet soda); replace with water, Crystal Light, diet deca f tea, or other calorie-free still beverage Contact information was provided; call or send [employer] message to dietitian with any questi ons. [...] [place] | | | | | | [address] | | | | | | [phone] | | | | | | | | +--------+ + + + + documented as of this encounter Visit Diagnoses + + | Diagnosis | + + | Morbid obesity with BMI of 70 and over, adult (HCC) - Primary | + + documented in this encounter
--- OUTSIDE RECORDS SUMMARY | ~2019-05-23 | XMS | Encounter Summary ---
Demographics + + + | Address | [address] | | | [place] [address] | + + + | Home Phone [...] [place], [place] | | | | | [address] | | + + + + + | Ellie Vang | ECON | Unknown | | + + + + + Care Team Providers + +------+ + | Care Fuel Cell Builder Name | Role | Phone | [...] Ave | | | | Order | [facility] | [place], [place] | | | | | [address] | [address] | | | | | Mailcode: OC2L | [phone] | | | | | [facility] | | | | | | and Healing, | | | | | | [address] | | | | | | [facility] [place] | | | | | | [address] | | | | | | [phone] | | | +--------+ + + + [...] [place] | | | | | | [address] | | | | | | [phone] | | | | | | | [...]
--- OUTSIDE RECORDS SUMMARY | ~2019-05-23 | XMS | Encounter Summary ---
Demographics + + + | Address | [address] | | | [place] [address] | + + + | Home Phone [...] + | Katalina Padilla | ECON | [address] | | | | | [place], [place] | | | | | [address] | | + + + + + | Ellie Vang | ECON | Unknown | | + + + + + Care Team Providers + +------+ + | Care Manager Fleet Name | Role | Phone | + [...] Medical Records | | 2018 | | [place] [address] | [address] | Review | | | | Ave Mailcode: CH4S | [place], [place] | | | | | [facility] | [address] | | | | | and [place], | [phone] | | | | | [place] [address] | | | | | | Floor [place], [place] | | | | | | [address] | | | | | | [phone] | | | +--------+ + + + [...] | | | | | [place] | | | | | | [address] | | | | | | [phone] | | | | | | | | +--------+ + + + + documented as of this encounter Visit Diagnoses Not on filedocumented in this encounter"
--- OUTSIDE RECORDS SUMMARY | ~2019-05-23 | XMS | Encounter Summary ---
Demographics + + + | Address | [address] | | | [place] [address] | + + + | Home Phone [...] [place], [place] | | | | | [address] | | + + + + + | Ellie Vang | ECON | Unknown | | + + + + + Care Team Providers + +------+ + | Care Accounts Payable Specialist Name | Role | Phone | [...] | Cardiology | Diagnoses | Conser, | iTny, | | | | | Unspecified | Kathy Feliciano NP | MD Randell | | | | | essential | [address] | [address] | | | | | hypertension | [address], | Ave | | | | | Type II or | [address] | [place], [place] | | | | | unspecified | [place], [place] | [address] | | | | | type | [address] | Phone: | | | | | diabetes | Phone: | [phone] | | | | | mellitus | [phone] | Fax: | | | | | without | Fax: | [phone] | | | | | mention of | [phone] | | | | | | complication [...] Visit | Preventive at [facility] | [address] | mellitus (HCC) | | | | [address] | Ave [place], [place] | (Primary Dx) | | | | Mailcode: CH9A | [address] | | | | | [facility] | [phone] | | | | | and [address], | | | | | | Building [address] | | | | | | [place], [place] | | | | | | [address] | | | | | | [phone] | | | +--------+---------+ + + + [...] Wi ll discuss with Dr. Brian and cosmetic maker her best strategies for meeting weight loss [...] | | | | | [place], [place] | | | | | | [address] | | | | | | [phone] | | | | | | | [...] NKECHI ROBERTS | [address] | [place] [address] | | | SERVICES, SPECIAL | PARK [...]
--- OUTSIDE RECORDS SUMMARY | ~2019-05-23 | XMS | Encounter Summary ---
Demographics + + + | Address | [address] | | | [place] [address] | + + + | Home Phone [...] [place], [place] | | | | | [address] | | + + + + + | Ellie Vang | ECON | Unknown | | + + + + + Care Team Providers + +------+ + | Care Press Puller Name | Role | Phone | [...] | | | | | obstruction | [place], | Mailcode: | | | | | or gangrene | [place] | [facility] | | | | | Abdominal | [address] | Health and | | | | | pain, | Phone: | Healing, | | | | | unspecified | | Building 2 | | | | | abdominal | Fax: | [place], [place] | | | | | location | [phone] | [address] | | | | | Procedures | | Phone: | | | | | CONSULT TO | | [phone] | | | | | SURGERY - | | Fax: | | | | | GENERAL | | [phone] | + +--------+ + + + + [...] | | [address] | Ave [place], [place] | | | | | Mailcode: Dante | [address] | | | | | for Health and | | | | | | [facility], [facility] 2 | | | | | | [facility] [place] | | | | | | [address] | | | | | | | [...] | | | | | [place], [place] | | | | | | [address] | | | | | | [phone] | | | | | | | [...]
--- OUTSIDE RECORDS SUMMARY | ~2019-05-23 | XMS | Encounter Summary ---
Demographics + + + | Address | [address] | | | [place] [address] | + + + | Home Phone [...] [place], [place] | | | | | [address] | | + + + + + | Ellie Vang | ECON | Unknown | | + + + + + Care Team Providers + +------+ + | Care Print Inspector Name | Role | Phone | [...] [address] | | | | | [place] [facility] [address] | Ave [place], [place] | | | | | [facility] | [address] | | | | | Mailcode: Center | [phone] | | | | | for Health and | | | | | | [facility], [facility] 2 | | | | | | [place], [place] | | | | | | [address] | | | | | | [phone] | | | +--------+ + + + [...] [place] | | | | | | [address] | | | | | | [phone] | | | | | | | | +--------+ + + + + documented as of this encounter Visit Diagnoses Not on filedocumented in this encounter"
--- OUTSIDE RECORDS SUMMARY | ~2019-05-23 | XMS | Encounter Summary ---
Demographics + + + | Address | [address] | | | [place] [address] | + + + | Home Phone [...] [place], [place] | | | | | [address] | | + + + + + | Ellie Vang | ECON | Unknown | | + + + + + Care Team Providers + +------+ + | Care Scrap Handler Name | Role | Phone | [...] | | Located on the 9 | [place], [place] | | | | | floor [address] | [address] | | | | | [address] | [phone] | | | | | [place], [place] | | | | | | [address] | | | +--------+---------+ + + + [...] mouth once daily. , Historical Med CALCIUM CRB&XBK-D5-BPK07-GENIS ORAL Take 1 tablet by mouth two [...] 10:40 AM Randell Franks Cardiology Preventive at [facility] [phone] Cardiology 04/09/2015 1:00 PM Egs Ppv Tra Trauma Emergency General Surgery at [facility] [phone] TRAUMA [facility]ENTE Outstanding labs/studies: None Discharging Physician: GABO LANGSTON MD Attending Physician: Dr. Cantu PCP: Fadi Goodrich DO Signed: GABO LANGSTON MD Pager #[phone] Surgical Tube Sizer And Cutter Operator [facility] Associated attestation - Tye Carrillo DO - 03/12/2015 9:12 AM PDTAttending: I discussed this patient with the resident and agree with the assessment and plan as outlin ed in this note and participated in the planning of care. Tye Carrillo DO, SIDRA, FACS Division of Trauma, Critical Care & Acute Care Surgery [facility] [phone] documented in this encounter Medications at Time of Discharge + + + +---------+--------+ + | Medication | Sig | Dispensed | Refills | Start | End Date | | | | | | Date | | + + + +---------+--------+ + | CALCIUM | Take 2 tablets by | | 0 | | | | CRB&KVU-X2-EMT24-GEN | mouth two times | | | [...] might be differ ent from the original. [facility] [place] DEPARTMENT OF SURGERY EMERGENCY GENERAL SURGERY Division [...] Plan: D/c today GABO LANGSTON MD Pager #[phone] Surgical Tube Sizer And Cutter Operator [facility] ick Mendez, Salomón rose R - 03/02/2015 1:[address] [facility] DEPARTMENT [...] will be robel ing her home to [place], [place]. CALVIN ROMERO MD PGY-1 Anesthesiology Pager: [phone] [facility] A [address] [place] [address] Karthik Oneill MD - 03/02/2015 8:26 AM [id number] Calvin William Md - 03/01/2015 5:34 PM [...] kg/(m^2). Intake/Output Summary (Last 24 hours) at 03/01/151737 Last data filed at 03/01/15 1400 Gross [...] control CALVIN ROMERO MD PGY-1 Anesthesiology Pager: [phone] signed by aClvin Romero Md at 03/01/2015 5:41 PM PDTdocumente [...] | | | | | [place], [place] | | | | | | [address] | | | | | | [phone] | | | | | | | [...] | | Attending Surgeon: Shahid Cantu MD Credit Review Officer(s): Howie Agneles MD, R5 | | Karthik Gonzalez MD, [...] 03/02/2015 08:25:39DT: 03/02/2015 09:15:57Job #: | | [id number] | | | |Dr. Chris Cantu was present and scrubbed for the entirety of the case. | | | | | | | |Karthik Gonzalez MD | | | |Pursuant to federal Medicare and Medicaid regulations I was present for the entire procedur e. | | | | | | | |Shahid Cantu MD | |[address] | |Trauma, Critical Care & Acute Care Surgery | | | | | | | |Shahid Cantu MD | |TBK/CARLOSL | | | | | | /[id number] | + ---+ CAPILLARY BLOOD GLUCOSE (NO [...] | [address] | [place], [place] | | | [facility] CARE | [address] | [address] | | | TESTS | | | [...] + + + | NKECHI AMES | [address] | [place], [place] | | | [facility] [facility]ARE | [address] | [address] | | | TESTS | | | [...] [place] | [address] | [place], [place] | | | [facility] [facility]ARE | [address] | [address] | | | TESTS | | | [...] [facility] | [address] | [place], [place] | | | [facility]ARE | [address] | [address] | | | TESTS | | | [...] + + + | NKECHI AMES | [address] | [place], [place] | | | [facility] [facility]ARE | [address] | [address] | | | TESTS | | | [...] [place] | [address] | [place], [place] | | | [facility] [facility] OF CARE | [address] | [address] | | | TESTS | | | [...] [facility] | [address] | [place] [address] | | | SERVICES, CORE | CLARENCE [...] | | | LABORATORY | | | URUGUAYAN | | | SERVICES, | | | [...] [facility] | [address] | [place] [address] | | | SERVICES, CORE | CLARENCE [...] (H) | 60 - 99 mg/dL | MISU - | | | GLUCOSE, | | [...] AMES | [address] | [place], [place] | | | [facility] | [facility] | [address] | | | TESTS | | | [...] [place] | [address] | [place], [place] | | | [facility] OF CARE | [address] | [address] | | | TESTS | | | [...] KWAKU | [address] | [place], [place] | | | [facility] JAKY | [address] | [address] | | | TESTS | | | [...] AMES | [address] | [place], [place] | | | JUST[facility] JAKY | [facility] | [address] | | | TESTS | | | [...] [facility] | [address] | [place], [place] | | | [facility]INT OF CARE | [facility] | [address] | | | TESTS | | | [...] LABORATORY | [address] | [place] [address] | | | LYDIA RANGEL | PARK [...] + | [facility] | [address] | [place], [place] | | | [facility] | [address] | [address] | | | TESTS | | | [...]
--- OUTSIDE RECORDS SUMMARY | ~2019-05-23 | XMS | Encounter Summary ---
Demographics + + + | Address | [address] | | | [place] [address] | + + + | Home Phone [...] [place], [place] | | | | | [address] | | + + + + + | Ellie Vang | ECON | Unknown | | + + + + + Care Team Providers + +------+ + | Care Filenet Admin Name | Role | Phone | + +------+ + | Fadi Goodrich DO | PCP | | + +------+ + Encounter Details +--------+ + + + + | Date | Type | Department | Care Team | Description | +--------+ + + + + | 07/06/ | Abstract | Digestive Health | Shereen Georges, | | | 2012 | | Center at [facility] [address] | ACNP [address] | | | | | [address] | Ave [place], [place] | | | | | Mailcode: [place] | [address] | | | | | for Health and | | | | | | [facility] | | | | | | [facility] [place] | | | | | | [address] | | | | | | | [...] | | 2019 | Visit | | [address] | | | | | | [place], [place] | | | | | | [address] | | | | | | [phone] | | | | | | | | +--------+ + + + + documented as of this encounter Visit Diagnoses Not on filedocumented in this encounter"
--- OUTSIDE RECORDS SUMMARY | ~2019-05-23 | XMS | Encounter Summary ---
Demographics + + + | Address | [address] | | | [place] [address] | + + + | Home Phone [...] [place], [place] | | | | | [address] | | + + + + + [...] | | 2016 | | Preventive at [facility] | MD [address] | | | | | [address] | Ave [place], [place] | | | | | Mailcode: CH9A | [address] | | | | | [facility] | [phone] | | | | | and Healing, | | | | | | Building [address] | | | | | | [facility] [place] | | | | | | [address] | | | | | | [phone] | | | +--------+ + + + [...] | | | | | [place], [place] | | | | | | [address] | | | | | | [phone] | | | | | | | | +--------+ + + + + documented as of this encounter Visit Diagnoses Not on filedocumented in this encounter"
--- OUTSIDE RECORDS SUMMARY | ~2019-05-23 | XMS | Encounter Summary ---
Demographics + + + | Address | [address] | | | [place] [address] | + + + | Home Phone [...] [place], [place] | | | | | [address] | | + + + + + | Ellie Vang | ECON | Unknown | | + + + + + Care Team Providers + +------+ + | Care Pest Controller Name | Role | Phone | [...] | 2015 | | Preventive at [facility] | [address] | (phentermine 37.5 mg | | | | [address] | [facility] [place] | ) | | | | Mailcode: LATRELL | [address] | | | | | [facility] | [phone] | | | | | and [address], | | | | | | Building [address] | | | | | | [place], [place] | | | | | | [address] | | | | | | [phone] | | | +--------+--------+ + + + [...] | | | | | [place] | | | | | | [address] | | | | | | [phone] | | | | | | | | +--------+ + + + + documented as of this encounter Visit Diagnoses Not on filedocumented in this encounter"
--- OUTSIDE RECORDS SUMMARY | ~2019-05-23 | XMS | Encounter Summary ---
Demographics + + + | Address | [address] | | | [place] [address] | + + + | Home Phone [...] [place], [place] | | | | | [address] | | + + + + + | Ellie Vang | ECON | Unknown | | + + + + + Care Team Providers + +------+ + | Care Legal Administrative Assistant Name | Role | Phone | [...] Morbid | | 2018 | Visit | [facility] at [address] | obesity ([facility]), BMI | | | | [address] | [address] | [address] (Primary Dx); | | | | Mailcode: Amanda | [place], [place] | Type 2 diabetes | | | | [facility] and | [address] | mellitus without | | | | Healing, Building [address] | | complication, with | | | | [place], [place] | | long-term current | | | | [address] | | use of insulin | | | | [phone] | | ([facility]); S/P gastric | | | | [...] Follow-Up Patient referred by: DO Vasyl Lewis [facility] [place] [address] Documented time of visit: 1:30 to 2:00 (30 minutes odus-dp-dunb with patient) Surgery: Gastric Bypass Date of [...] multivitamin & mineral (with iron) supplement, 2/day -5576-1653 mg calcium citrate with vitamin D/day (take [...] in [address],[place] Pager# [phone] Phone: [phone] documented in this e ncounter Plan of [...] | | | | | [place], [place] | | | | | | [address] | | | | | | [phone] | | | | | | | | +--------+ + + + + documented as of this encounter Procedures + +--------+ + + + | Procedure Name | Priori | Date/Time | Associated Diagnosis | Comments | | | ty | | | | + +--------+ + + + | MS MNT RE-ASSESSMNT | Routin | 03/10/2018 | [...] of insulin ([facility]) | | | [...]
--- OUTSIDE RECORDS SUMMARY | ~2019-05-23 | XMS | Encounter Summary ---
Demographics + + + | Address | [address] | | | [place] [address] | + + + | Home Phone [...] | Author | [facility] | | | and Jeffana | + + + | Organization | [facility] [...] Providers + +------+ + | Care Inspector Pawnshop Detail Name | Role | Phone | + [...] | Disease | Chronic | Karin, | [facility] | | | Required | | diastolic | INTERVENTIONAL PHYSICIAN [address] | SLEEP | | | | | heart | PA[place]AL [place] | DISORDERS LAB | | | | | failure | DMITRI F | [address] | | | | | (HCC) | [place], [place] | [address] | | | | | History of | [address] | [place], [place] | | | | | sinus | Phone: | [address] | | | | | tachycardia | [phone] | Phone: | | | | | History of | Fax: | [phone] | | | | | bariatric | [phone] | Fax: | | | | | surgery | | [phone] | | | | | Sleep apnea [...] + + | 04/28/ | Office | [facility] | Sulema Altamirano | Chronic diastolic | | 2019 | Visit | CARDIOLOGY [place] | [address] | heart failure (HCC) | | | | [address] | [address] | (Primary Dx); | | | | [address] | [place] [address] | History of sinus | | | | [place], [place] | [phone] | tachycardia; History | | | | [address] | | of stroke; HTN, | | | | [phone] | | goal below 130/80; | | [...] have referred you to Dr. Rascon at [place] [facility] , call [phone] for an appointment next week I made [...] dysfunction with previous dysfunctional RV treated at [facility] with diuresis and hospitalization for one month., sleep apnea treated with BiPAP, t ype II diabetes, hypothyroidism, morbid obesity with alveolar hypoventilation, Frandy-en-Y ga stric bypass surgery 02/2018, osteoarthritis,DVT and PE 2017, hypokalemia and hyperuricemia which is being followed by shoveler Dr. Fu, and SELINA Escobar. Her current [...] surgery, and weight down 123 pounds since [facility] 2018 when weighed 394 lbs. She brought [...] hypothyroidism,followed by Dr. Franks, endocrin ologist at [facility]) . Denies excessive thirst or hunger. [...] knee pain and hernia pain Lives in [facility] ith her mother who smokes. . Sister is chiropractic care. Grandchildren ages 4 and 7 live with he r daughter and son-in-law. Disabled , on disability .01/24/2019: working with [employer] to get her own place. Outpatient Medications [...] film Suboxone 2 mg-0.5 mg sublingual film Qfaqgwh-Hzvdmqjlf-Vsmglii D (CITRACAL CALCIUM+D PO) Take 2 tablets [...] Pen Needle (NOVOFINE) 32G X 6 MM [facility] Novofine 32 32 gauge x 1/4" needle [...] monohydrate/macrocrystals 100 m g capsule nystatin (NYSTATIN) 037665 UNIT/GM powder Nyamyc 100,000 unit/gram topical powder [...] Take 30 mg by mouth Daily. thyroid (STRATEGIC MARKETING SPECIALIST THYROID) 30 mg tablet STRATEGIC MARKETING SPECIALIST Thyroid 30 mg tablet TAKE ONE TABLET [...] Ascending aorta not well seen Echo: 02/16/2017: ([facility]): normal EF of 60-65% , accurate assessment of diastolic function i mpeded by poor tissue doppler, RV normal in size and function, with no significant valvular disease, and aortic root, ascending aorta , and aortic arch normal Echo: 01/02/2016 ([facility]): TDS, cardiac chamber dimensions grossly NML, LVEF >70%, rodriguez tolic function normal for patient. Unable to assess segmental wall motion. RV grossly norm al. Aortic valve sclerotic, no As/AI. Mitral and tricuspid valves grossly normal. Trace T R. No pericardial effusion VASCULAR TESTING AND PROCEDURES Left lower extremity DVT, presumed PE: 10/2015 [facility]. treated with heparin drip and Coumadin 10 in hospital, with Coumadin 6 months as outpatient, ASA 81 mg continued Venous US: right leg, 04/28/2016: No evidence of DVT. EKG EKG 10/27: ([facility]) Normal sinus rhythm. Normal EKG. Rate 93 bpm, AR 172 ms, QRS 90 ms, QTC 465 ms personally reviewed by me in the office today) EK02/05: Sinus tachycardia, otherwise normal. Rate 160 bpm, AR 174 ms, QRS 74 ms, QTC 451 ms (personally reviewed by me in the office today and no significant change seen fro m EKG done in October 2016 except for faster heart rate) EK04/26/2018: Normal sinus rhythm, rate 74 bpm, AR 182 ms, QRS 96 ms, QTC 472 ms, alexandru genao personally reviewed by me, and compared to previous EKG, heart rate is now better controll ed, otherwise similar morphology EK04/28/2019: Normal sinus rhythm, right axis. Rate 74 bpm, AR 170 ms, QRS 88 ms, QTC 45 [...] providers at the [place] [facility] in [place], so I have referred her again to Dr. Rascon at the [place] [facility], and she ne eds [...] Placed This Encounter Procedures Ambulatory Referral to [facility] Pulmonology- Sleep study as well ECG [...] past surgical history. Problem list. Maryse MARKS [facility] Cardiology 04/28/2019 documente d in this encounter Plan of Treatment +--------+---------+ + + + | Date | Type | Specialty | Care Team | Description | +--------+---------+ + + + | 05/26/ | Office | Audiology | Sher[place], [place] | | | 2018 | Visit | | [facility] [address] | | | | | | [address] [facility] | | | | | | [place] [address] | | | | | | [phone] | | | | | | | | +--------+---------+ + + + + +--------+ + + | Name | Priori | Associated Diagnoses | Order Schedule | | | ty | | | + +--------+ + + | Ambulatory Referral to [facility] | Routin | Chronic diastolic | [...] | | | | | by [facility] [place] Read Only, | | | | | | [employer] ([id number]), | | | | | | loan expeditor [...]
--- OUTSIDE RECORDS SUMMARY | ~2019-05-23 | XMS | Encounter Summary ---
Demographics + + + | Address | [address] | | | [place] [address] | + + + | Home Phone [...] Providers + +------+ + | Care Professional Architect Name | Role | Phone | + +------+ + | Fadi Goodrich DO | PCP | | + +------+ + Encounter Details +--------+---------+ + + + | Date | Type | Department | Care Team | Description | +--------+---------+ + + + | 02/22/ | Office | Preoperative | Gay Hoff, | Preop examination | | 2018 | Visit | [facility] at | DNP,ANP [address] | (Primary Dx) | | | | [facility] | [address] | | | | | [address] [place] | [place], [place] | | | | | Mail Code: OC8PM | [address] | | | | | [facility] | [phone] | | | | | and Healing, | | | | | | Building [address] | | | | | | [place], [place] | | | | | | [address] | | | | | | [phone] | | | +--------+---------+ + + + [...] or walk. Surgery check-in location: Admitting - [facility], ninth floor lobby Surgery Check [...] it is after office hours, call the [facility] dimpling machine operator at [phone] and ask them to page him or [...] d function per TTE ( 02/16/2017) from [facility] [employer]: Improved and stable. T2DM - controlled with [...] renal failure no electrolyte abnormalities no dialysis Urology/Customer Service Rep: Within Defined Limits except as noted below [...] mg by mouth two times daily. CALCIUM CRB&DXG-L0-XQW49-GENIS ORAL Take 2 tablets by mouth two [...] Use to brush teeth 2 to 3 mitseh es daily as directed. Do not eat [...] Andie Brian Incisional hernia repair 03/01/2015 [facility]/ Dr. Cantu. Primary fascial closure and scar [...] 98ms, QTC 460ms, TTE ( 02/16/2017) - R2G [employer] 1. Overall left ventricular systolic function is normal with, an EF between 60 - 65 %. 2. The right ventricle is normal in size and function. 3. No significant valvular abnormalities are noted. 4. In comparison to the previous (technically difficult) echocardiographic study done 01/01, no signfiicant changes are noted. TTE (02/17/2016) - [employer] Conclusions 1. There is normal left ventricular [...] and resp iratory change. TTE (11/07/2015) - [facility] Final Impressions: 1. The interpretation of images [...] per TTE ( 02/16/2017) form [facility]. Improved and stable. - Confirmed [...] Advised to bring her own apparatus for [facility]. GERD - On omeprazole. Chronic Fluid retention [...] to this patient's care. Gay Hoff, ERENDIRA,ANP [facility] PREOPERATIVE [facility]INE CL[facility] AT [facility] 4TH FLOOR [address] [facility] [address] [...] | | 2019 | Visit | | [address] | | | | | | [place], [place] | | | | | | [address] | | | | | | [phone] | | | | | | | | +--------+ + + + + + + +--------+ + + | Name | Type | Priori | Associated Diagnoses | Order Schedule | | | | ty | | | + + +--------+ + + | COMMUNICATION TO [facility] | Procedures | Routin | Preop examination | Ordered: 02/22/2018 | | LAB DRAW | | e | | | + + +--------+ + + documented as of this encounter Procedures + +--------+ + + + | Procedure Name | Priori | Date/Time | Associated Diagnosis | Comments | | | ty | | | | + +--------+ + + + | MO COLLECTION VENOUS | Routin | 02/22/2018 | [...] [facility] | [address] | [place] [address] | | | SERVICES, CORE | [address] [...] [facility] | [address] | [place] [address] | | | SERVICES, | [address] [...] [facility] | [address] | [place] [address] | | | SERVICES, | [address] [...] | [facility] | | considered for monitoring geographic information systems engineer glycemic control in patients with: | LABORATORY [...] [facility] | [address] | [place] [address] | | | SERVICES, SPECIAL | [address] [...] | | | LABORATORY | | | ICELANDIC | | | SERVICES, | | | [...] BEHAVIORAL MEDICINE | [address] | [place] [address] | | | SERVICES, CORE | [address] | | | + + + + + 12 LEAD ECG (02/22/2018 1:18 PM PDT) + + + + + + | Component | Value | Ref Range | Performed | Pathologist | | | | | At | Signature | + + + + + + | VENTRICULAR | 110 | bpm | [facility] | | | RATE | | [...] DEPT OF | [address] | [place], [place] | | | CARDIOLOGY | [address] | [address] | | + + + + + documented in this encounter Visit Diagnoses + + | Diagnosis | + + | Preop examination - Primary Preoperative examination, unspecified | + + documented in this encounter
--- OUTSIDE RECORDS SUMMARY | ~2019-05-23 | XMS | Encounter Summary ---
[...] [place], [place] | | | | | [address] | | + + + + + | Ellie Vang | ECON | Unknown | | + + + + + Care Team Providers + +------+ + | Care Cell Lead Name | Role | Phone | [...] | | 2 diabetes | JEAN, | [place], [place] | | | | | mellitus | [place] [address] | [address] | | | | | without | Phone: | Phone: | | | | | complication | [phone] | [phone] | | | | | (HCC) | Fax: | Fax: | | | | | Procedures | [phone] | [phone] | | | | | AL EST [...] 2018 | Visit | Preventive at [facility] | [address] | mellitus without | | | | [address] | Ave [place], [place] | complication, with | | | | Mailcode: CH9A | [address] | long-term current | | | | [facility] | [phone] | use of insulin (HCC) | | | | and Healing, | | (Primary Dx); | | | | Building [address] | | Morbid obesity with | | | | [place], [place] | | BMI of 70 and over, | | | | [address] | | adult (HCC) | | | | [phone] | | | +--------+---------+ + + + [...] 04/14/2013 Priority: 3 Hypoventilation associated with obesity ([facility]) 06/16/2013 Priority: 4 AMARA (obstructive sleep apnea) 04/14/2013 Priority: 4 Overview Note: Cannot tolerate CPAP Severe Morbid obesity ([facility]), BMI 88 11/12/2012 Priority: 4 Overview Note: Lifetime max: 495 lbs Phentermine started Type 2 diabetes mellitus ([facility]) 04/14/2013 Priority: 5 Iron deficiency anemia due to chronic blood loss 11/11/2015 Priority: 6 Overview Note: Ferritin 18 on 10/2015 Hypoalbuminemia (no proteinuria, need to rule out synthetic, nutrition, loss) 6 Priority: 6 Hypothyroidism 08/28/2014 Priority: 8 Morbid obesity with BMI of 70 and over, adult ([facility]) 02/02/2017 Chronic diastolic heart failure (HCC) 02/02/2017 Immobility 02/02/2017 Severe muscle deconditioning 02/02/2017 Personal history of DVT (deep vein thrombosis) 02/02/2017 History of pulmonary embolism 02/02/2017 AMARA treated with BiPAP 02/02/2017 Benign essential HTN 02/02/2017 Diabetes mellitus type 2 without retinopathy ([facility]) 02/02/2017 Hyperlipidemia 02/02/2017 Ventral hernia without [...] exertion) 11/06/2015 Diabetes mellitus with insulin therapy ([facility]) 12/27/2014 Abdominal pain 02/07/2014 Migraine headache [...] 1 tablet by mouth once daily CALCIUM CRB&MHS-A0-KJA83-GENIS ORAL Take 2 tablets by mouth two [...] jeart failure is manag ed by her sales mgr and she was seen by the bariatric surgery group and is now back on tr [facility] for gastric bypass in the upcoming [...] is currently being managed well by her Business Account Specialist with diuretics and main tenance [...] management of her heart failure by her Business Account Specialist 3) Check A1c, lipids 4) Await [...] | 06/30/ | Office | Cardiology | aRndell Franks, | | | 2018 | Visit | | [address] | | | | | | [place], [place] | | | | | | [address] | | | | | | [phone] | | | | | | | [...] [facility] | [address] | [place], [place] | | | SERVICES, LIPID | [address] | [address] | | + + + + + [...] | [facility] | | considered for monitoring illuminating engineer glycemic control in patients with: | [...] + + + + + | [facility] | [address] | [place] [address] | | | SERVICES, SPECIAL | [address] | | | | IMM + COAG | | | | + + + + + documented in this encounter Visit Diagnoses + + | Diagnosis | + + | Type 2 diabetes mellitus without complication, with long-term current use of insulin | | ([facility]) - Primary | + + | Morbid obesity with BMI of 70 and over, adult ([facility]) | + + documented in this encounter
--- OUTSIDE RECORDS SUMMARY | ~2019-05-23 | XMS | Encounter Summary ---
Demographics + + + | Address | [address] | | | [place] [address] | + + + | Home Phone [...] [place], [place] | | | | | [address] | | + + + + + | Ellie Vang | ECON | Unknown | | + + + + + Care Team Providers + +------+ + | Care Carpet Technician Name | Role | Phone | [...] | | 2017 | | Preventive at [facility] | [address] | Request ([address] | | | | [address] | Ave [facility] [place] | mg) | | | | Mailcode: Mihaela | [address] | | | | | [facility] | [phone] | | | | | and [address], | | | | | | [address] | | | | | | [place], [place] | | | | | | [address] | | | | | | [phone] | | | +--------+ + + + [...] | | | | | [place], [place] | | | | | | [address] | | | | | | [phone] | | | | | | | | +--------+ + + + + documented as of this encounter Visit Diagnoses Not on filedocumented in this encounter"
--- OUTSIDE RECORDS SUMMARY | ~2019-05-23 | XMS | Encounter Summary ---
[...] + | Katalina Padilla | ECON | [address] | | | | | [place], [place] | | | | | [address] | | + + + + + | Ellie Vang | ECON | Unknown | | + + + + + Care Team Providers + +------+ + | Care Lawn Care Professional Name | Role | Phone | [...] | | 2017 | | Preventive at [facility] | MD [address] | Request ([address] | | | | [address] | Ave [facility] [place] | mg) | | | | Mailcode: Mihaela | [address] | | | | | [facility] | [phone] | | | | | and [address], | | | | | | [address] | | | | | | [place], [place] | | | | | | [address] | | | | | | [phone] | | | +--------+ + + + [...] | | | | | [place], [place] | | | | | | [address] | | | | | | [phone] | | | | | | | | +--------+ + + + + documented as of this encounter Visit Diagnoses Not on filedocumented in this encounter"
--- OUTSIDE RECORDS SUMMARY | ~2019-05-23 | XMS | Encounter Summary ---
Demographics + + + | Address | [address] | | | [place] [address] | + + + | Home Phone [...] [place], [place] | | | | | [address] | | + + + + + | Ellie Vang | ECON | Unknown | | + + + + + Care Team Providers + +------+ + | Care Customer Sales Consultant Name | Role | Phone [...] | | 2019 | | Preventive at [facility] | [address] | re-test? ) | | | | [address] | [place], [place] | | | | | Mailcode: EARL | [address] | | | | | [facility] | [phone] | | | | | and [address], | | | | | | [address] | | | | | | [place], [place] | | | | | | [address] | | | | | | [phone] | | | +--------+ + + + [...] | | 2018 | Visit | | [address] | | | | | | [place], [place] | | | | | | [address] | | | | | | [phone] | | | | | | | [...]
--- OUTSIDE RECORDS SUMMARY | ~2019-05-23 | XMS | Encounter Summary ---
Demographics + + + | Address | [address] | | | [place] [address] | + + + | Home Phone [...] [place], [place] | | | | | [address] | | + + + + + | Ellie Vang | ECON | Unknown | | + + + + + Care Team Providers + +------+ + | Care Job Developer For Deaf Adults Name | Role | Phone | + [...] | | | | | | Pavilion [address] | | | | | | [address] | | | | | | Physician's | | | | | | Pavilion | | | | | | [facility] | | | | | | [place], [place] | | | | | | [address] | | | | | | [phone] | | | +--------+ + + + [...] | | | | | [place], [place] | | | | | | [address] | | | | | | [phone] | | | | | | | | +--------+ + + + + documented as of this encounter Visit Diagnoses Not on filedocumented in this encounter"
--- OUTSIDE RECORDS SUMMARY | ~2019-05-23 | XMS | Encounter Summary ---
Demographics + + + | Address | [address] | | | [place] [address] | + + + | Home Phone [...] Providers + +------+ + | Care Shellfish Shucker Name | Role | Phone | [...] | | | | | Procedures | [place], [place] | [place], [place] | | | | | [place] | [address] | [address] | | | | | CAR | Phone: | Phone: | | | | | PREVENTATIVE | [phone] | [phone] | | | | | [facility] - | Fax: | Fax: | | | | | LIPIDS | [phone] | [phone] | +--------+--------+ + + + + Encounter Details +--------+---------+ + + + | Date | Type | Department | Care Team | Description | +--------+---------+ + + + | 09/11/ | Office | Cardiology | Olga Lidia Montanez, | 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 | Visit | Preventive at [facility] | [address] | BMI of 70 and over, | | | | [address] | [address] | adult (HCC) (Primary | | | | Mailcode: CH9A | [place], [place] | Dx) | | | | [facility] | [address] | | | | | and Healing, | | | | | | Building [address] | | | | | | [place], [place] | | | | | | [address] | | | | | | [phone] | | | +--------+---------+ + + + [...] appointment, Dietitian: Olga Lidia Montanez RD, LD [facility] Bariatric department (to reschedule classes): [phone] Goals: 1. Try to stop buying Pop-Tarts 2. Replace afternoon snack (think of this as lunch) with vegetables or fruit -cucumbers, carrots, broccoli, cauliflower, etc. -try making ranch dip w/ nonfat plain yogurt (regular or Albanian) (or mix yogurt w/ salsa; o r chipotle hot sauce & [place] juice) 3. Snack ideas: -fruit -vegetables (with [...] FREE heart-healthy cooking demonstrations led by guest fruit buying grader and nutrition experts. Samples are provided! Where: [facility] ([facility]), September, 2nd floor teaching kitchen When: All classes from 11:00am-12:00pm ? October 12 (led by Dr. Paulino Carreno MD) Please contact Keerthi Boyer at [phone] or email at [email or web address] for information on upcoming classes and to register. Space is limited - reserve your seat today! Want more info on what to eat? Watch the [employer] video, "Healthy Eating 101," at [email or web address]?v=[email or web address] documented in this encounter Progress Notes Olga Lidia Montanez RD - 09/11/2017 2:30 PM PSTFormatting of this note might be different fro m the original. [facility] Center of Preventive Cardiology, Nutrition Consultation Referring provider: Dr. Randell Franks MD Referring diagnosis: obesity, HF, DM2 Visit type: Initial; lysj-qh-goic visit with patient Questions/Information desired today: Hoping [...] Still has bariatric notebooks at home. Per [employer] Labs[employer] message from Dr. Pandey 09/10/17: "Just tell [...] it's too expensive. Occ fruit bowls from [facility]. Vegetables: every day w/ dinner - [...] in PT 2x/week for bariatric program (in [place]) UBW: 385-391 lbs Max weight: 529 lbs Weight history: lost from 495 lbs to 383 lbs in 9191-9442 on Atkins diet ANTHROPOMETRICS: Height: Ht Readings from Last 1 Encounters: 09/11/17 1.549 m (5' 1") Weight: Wt Readings from Last 1 Encounters: 09/11/17 176.5 kg (389 lb 3.2 oz) 11/28/16 179.443 kg (395 lb 10 oz) Body mass index is 73.54 kg/m. 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 Currently eating energy-dense/nurient-poor foods [...] Contact information was provided; call or send [employer] message to dietitian with any questi ons. [...] | | | | | [place], [place] | | | | | | [address] | | | | | | [phone] | | | | | | | | +--------+ + + + + documented as of this encounter Visit Diagnoses + + | Diagnosis | + + | Morbid obesity with BMI of 70 and over, adult (HCC) - Primary | + + documented in this encounter
--- OUTSIDE RECORDS SUMMARY | ~2019-05-23 | XMS | Encounter Summary ---
Demographics + + + | Address | [address] | | | [place] [address] | + + + | Home Phone [...] + | Author | [facility] | | | and Jeffana | + + + | Organization | [facility] | | | and [...] Team Providers + +------+ + | Care Medicare Biller Name | Role | Phone | [...] [address] | | | | | [place], [place] | [place] [address] | | | | | [address] | [phone] | | | | | [phone] | | | +--------+ + + + [...] | Sherron Freedman MS | | | 2018 | Visit | | [facility] [address] | | | | | | [address] | | | | | | [place] [address] | | | | | | [phone] | | | | | | | [...] 0.61 m/s | | | MV Dec Linn: 2.43 m/s2 MV DecT: 247.51 ms MV E Jeffrey: | | | 0.60 m/s MV E/A Ratio: 0.98 MV PHT: 71.78 ms MVA By | | | PHT: 3.06 cm2 Septal e': 0.06 m/s Septal E/e': 9.54 | | | Lateral e': 0.10 m/s Lateral E/e': 5.84 RAP: 5 mmHg RV | | | s': 0.11 m/s Mutual Fund Analyst: JESSICA Authenticated by: Darryl | | | Rossyroscoe Report Date/Time: 02-22-2019 20:8:36 | | + + + + --------+ | Procedure Note | + --------+ | David Burgess Conversion - 03/17/2019 1308 PDT Patient Name: Tiny Cristina of : | | 1975 Performing Physician: Darryl | | Rossyroscoe INDICATIONS------ | | -----Sinus Tachycardia CONCLUSIONS 1. [...] cmLVIDd: 4.70 cmLVPWd: 0.79 cmLVOT Area: 3.58 cu4CTYS Diam: 2.13 cm%FS: 39.25 | | %EF(Teich): [...] | Index (A-L): 14.72 ml/m2LAAs A2C: 10.03 nf0GACUW A-L A2C: 22.69 mlLALs A2C: 3.76 | | cmLAAs A4C: 13.41 xl4HPDRH A-L A4C: 36.80 mlLALs A4C: 4.14 cmRAAs: 11.18 | | lo8FWMAB A-L: 22.84 mlRAESV MOD: 22.10 mlRALs: 4.64 cmTAPSE: 2.04 cmAV maxPG: | | 6.55 mmHgAV meanP.52 mmHgAV Vmax: 1.27 m/Genesis Vmean: 0.88 m/Genesis VTI: 26.50 | | cmAVA Vmax: 2.49 cm2AVA (VTI): 2.39 hd5WDRR Vmax: 0.00 cm2/m2AVAI (VTI): 0.00 | | cm2/m2LVOT maxP.17 mmHgLVOT meanP.82 mmHgLVSI Dopp: 30.83 ml/m2LVSV Dopp: | | 63.52 mlLVOT Vmax: 0.89 m/sLVOT Vmean: 0.65 m/sLVOT VTI: 17.71 cmMV A Jeffrey: | | 0.61 m/sMV Dec Linn: 2.43 m/s2MV DecT: 247.51 msMV E Jeffrey: 0.60 m/sMV E/A Ratio: | | 0.98MV PHT: 71.78 msMVA By PHT: 3.06 db6Obdnin e': 0.06 m/sSeptal E/e': | | 9.54Lateral e': 0.10 m/sLateral E/e': 5.84RAP: 5 mmHgRV s': 0.11 m/s | | Mutual Fund Analyst: DHAuthenticated by: Darryl [facility] Date/Time: 02-22-2019 20:8:36 | | IMPRESSION: [...] A Jeffrey: 0.61 m/s | |MV Dec Linn: 2.43 m/s2 | |MV DecT: 247.51 ms | |MV E Jeffrey: 0.60 m/s | |MV E/A Ratio: 0.98 | |MV PHT: 71.78 ms | |MVA By PHT: 3.06 cm2 | |Septal e': 0.06 m/s | |Septal E/e': 9.54 | |Lateral e': 0.10 m/s | |Lateral E/e': 5.84 | |RAP: 5 mmHg | |RV s': 0.11 m/s | | | |Mutual Fund Analyst: | |Authenticated by: Darryl Blairroscoe | |Report Date/Time: 02-22-2019 20:8:36 | | [...]
--- OUTSIDE RECORDS SUMMARY | ~2019-05-23 | XMS | Encounter Summary ---
Demographics + + + | Address | [address] | | | [place] [address] | + + + | Home Phone [...] [place], [place] | | | | | [address] | | + + + + + | Ellie Vang | ECON | Unknown | | + + + + + Care Team Providers + +------+ + | Care Marine Diesel Mechanic Name | Role | Phone | [...] | | 2014 | | Preventive at [facility] | MD [address] | | | | | [address] | Ave [place], [place] | | | | | Mailcode: 9A | [address] | | | | | [facility] | [phone] | | | | | and [address], | | | | | | [address] | | | | | | [place], [place] | | | | | | [address] | | | | | | [phone] | | | +--------+--------+ + + + [...] | | | | | [place], [place] | | | | | | [address] | | | | | | [phone] | | | | | | | | +--------+ + + + + documented as of this encounter Visit Diagnoses Not on filedocumented in this encounter"
--- OUTSIDE RECORDS SUMMARY | ~2019-05-23 | XMS | Encounter Summary ---
Demographics + + + | Address | [address] | | | [place] [address] | + + + | Home Phone [...] [place], [place] | | | | | [address] | | + + + + + | Ellie Vang | ECON | Unknown | | + + + + + Care Team Providers + +------+ + | Care Black Top Raker Name | Role | Phone | + +------+ + | Fadi Goodrich DO | PCP | | + +------+ + Encounter Details +--------+ + + + + | Date | Type | Department | Care Team | Description | +--------+ + + + + | 02/10/ | Abstract | Digestive Health | Hernandez Brian, | | | 2012 | | Center at [facility] [address] | MD [address] | | | | | [address] | [facility] | | | | | Mailcode: Center | [place], [place] | | | | | [facility] and | [address] | | | | | [facility] 2 | [phone] | | | | | [place], [place] | | | | | | [address] | | | | | | [phone] | | | +--------+ + + + [...] [place] | | | | | | [address] | | | | | | [phone] | | | | | | | | +--------+ + + + + documented as of this encounter Visit Diagnoses Not on filedocumented in this encounter"
--- OUTSIDE RECORDS SUMMARY | ~2019-05-23 | XMS | Encounter Summary ---
Demographics + + + | Address | [address] | | | [place] [address] | + + + | Home Phone [...] [place], [place] | | | | | [address] | | + + + + + | Ellie Vang | ECON | Unknown | | + + + + + Care Team Providers + +------+ + | Care Preanalytics Team Lead Name | Role | Phone | [...] + + | 03/03/ | Documentati | Endoscopic | Lab, Gi Procedure | Medical Records | | 2019 | on | Procedural Unit at | | Review | | | | [facility] | | | | | | [address] | | | | | | Mailcode: OC2L | | | | | | [facility] | | | | | | and [place], | | | | | | [address] | | | | | | [place], [place] | | | | | | [address] | | | | | | [phone] | | | +--------+ + + + [...] [place] | | | | | | [address] | | | | | | [phone] | | | | | | | | +--------+ + + + + documented as of this encounter Visit Diagnoses Not on filedocumented in this encounter"
--- OUTSIDE RECORDS SUMMARY | ~2019-05-23 | XMS | Encounter Summary ---
Demographics + + + | Address | [address] | | | [place] [address] | + + + | Home Phone [...] [place], [place] | | | | | [address] | | + + + + + | Ellie Vang | ECON | Unknown | | + + + + + Care Team Providers + +------+ + | Care Pneumatic Tester Mechanic Name | Role | Phone | [...] | | 2019 | Visit | | [address] | | | | | | [place], [place] | | | | | | [address] | | | | | | [phone] | | | | | | | | +--------+ + + + + documented as of this encounter Visit Diagnoses Not on filedocumented in this encounter"
--- OUTSIDE RECORDS SUMMARY | ~2019-05-23 | XMS | Encounter Summary ---
Demographics + + + | Address | [address] | | | [place] [address] | + + + | Home Phone [...] [place], [place] | | | | | [address] | | + + + + + | Ellie Vang | ECON | Unknown | | + + + + + Care Team Providers + +------+ + | Care Account Services Manager Name | Role | Phone [...] at [facility] [address] | LIFE INSURANCE AGENT [address] | | | | | [address] | [facility] [address] | | | | | Mailcode: Center | [place], [place] | | | | | [facility] Health and | [address] | | | | | [facility] 2 | [phone] | | | | | [place], [place] | | | | | | [address] | | | | | | [phone] | | | +--------+ + + + [...] | | 2019 | Visit | | [address] | | | | | | [place] [facility] [place] | | | | | | [address] | | | | | | [phone] | | | | | | | | +--------+ + + + + documented as of this encounter Visit Diagnoses Not on filedocumented in this encounter"
--- OUTSIDE RECORDS SUMMARY | ~2019-05-23 | XMS | Encounter Summary ---
Demographics + + + | Address | [address] | | | [place] [address] | + + + | Home Phone [...] [place], [place] | | | | | [address] | | + + + + + | Ellie Vang | ECON | Unknown | | + + + + + Care Team Providers + +------+ + | Care Mannequin Molder Name | Role | Phone | [...] | | | | | | | [facility] | | | | | | | [employer] and | | | | | | | Healing, | | | | | | | Building [address] | | | | | | | [place], [place] | | | | | | | [address] | | | | | | | Phone: | | | | | | | [phone] | | | | | | | Fax: | | | | | | | [phone] | +--------+--------+ + + + + Encounter [...] | | [address] | Ave [place], [place] | adult (HCC) (Primary | | | | Mailcode: Center | [address] | Dx); Vitamin D | | | | for Health and | | deficiency disease; | | | | Healing, Building [address] | | Intertriginous | | | | [place], [place] | | candidiasis; | | | | [address] | | Diabetes mellitus | | | [...] Psychological Evaluation: If your referral is at [facility], pain management will call irma [...] the time. If your referral is at [facility], they will call y ou in the next week to schedule. She will arrange 8. Nephrology Consult: Please call [employer] ([phone]) and have them send you a urine specimen container. You will need to discuss your kidney stone risk with a nephrology provid er prior to proceeding with gastric bypass. If your referral is at [facility], they will call you in [...] at the same time: betsy Feldman RN, [facility]- Nurse Practitioner for Bariatric Surgery [facility] | [address] | [place], [place] | [address] | Potential Contraindications to Bariatric Surgery Age [...] other providers does not guarantee that the [facility] Bariatric Surger y program will deem you a surgical candidate. documented in this encounter Progress Notes Shereen Pinto ACNP - 06/16/2013 1:28 PM PSTFormatting of this note might be different fro m the original. BARIATRIC INITIAL VISIT Provider: Shereen Pinto DNP, DANIELLEP, KNIT GOODS PRESS HAND Referring Provider: Dr. Fadi Goodrich, [place] [phone] Reason for Requested Consultation: Initial evaluation for bariatric surgery. Elzbieta Farooq is interested in Frandy en y alfredo tomeka bypass. The pt is here With her sister. Following surgery her mother and sister will care for her, she will Stay in [place] after surgery so that she is close by. She lives in [place]. They have few stairs to get into [...] recently gained weight, she met with our credit risk modeler today, she has been making poor food [...] none Use of Redux or Phen/fen: no Yazidi or cultural reason you would refuse blood [...] as well , hypertension, hyperlipidemia. Denies CHF, SC, ischemic heart disease, DVT/PE, or pulmonary hypertension. [...] the therapy. 8. Nephrology Consult: Please call [employer] ([phone]) and have them send you a urine specimen container. You will need to discuss your kidney stone risk with a nephrology provid er prior to proceeding with gastric bypass. If your referral is at [facility], they will call you in the next week to schedule. You are at increased risk of renal stones after surgery, with your history of stone, we want to check of oxalate in your urine. You will need a referral to a heavy equipment sales manager If your level is elevated. 9. [...] soon as possible Shereen Pinto DNP ACNP, [employer] HAND Nurse Practitioner for Bariatric Surgery [facility] | [address] | [place], [place] | [address] | Potential Contraindications to Bariatric Surgery Age [...] other providers does not guarantee that the [facility] Bariatric Surger y program will [...] | | 2018 | Visit | | [address] | | | | | | [place], [place] | | | | | | [address] | | | | | | [phone] | | | | | | | [...] at | | | | | | [email or web address] Test | | | | | | developed and | | | | | | characteristics | | | | | | determined by | | | | | | [employer]. See | | | | | | Compliance Statement B: | | | | | | [email or web address] | | | | | | by [employer],[address] | | | | | | Liliana Martinez, [facility],[place] | | | | | | [address] | | | | | | [phone]. | | | | | | com, [...] at | | | | | | [employer] Test | | | | | | developed and | | | | | | characteristics | | | | | | determined by | | | | | | [employer]. See | | | | | | Compliance Statement B: | | | | | | [employer]/CS | | | | + + + + + + + + | Specimen | + + | Blood - Blood | + + + + + + + | Performing | Address | City/State/Zipcode | Phone Number | | Organization | | | | + + + + + | [facility] | [address] | [place], [place] | | | [facility] | | [address] | | + + + + + [...]
--- OUTSIDE RECORDS SUMMARY | ~2019-05-23 | XMS | Encounter Summary ---
Demographics + + + | Address | [address] | | | [place] [address] | + + + | Home Phone [...] [place], [place] | | | | | [address] | | + + + + + | Ellie Vang | ECON | Unknown | | + + + + + Care Team Providers + +------+ + | Care Oil Field Equipment Mechanic Supervisor Name | Role | Phone | [...] + + | 05/13/ | Emergency | [facility] Emergency | Nay Joe | | | 2019 - | | Department [address] MD [address] | | | | | [address] | [address] | | | 05/14/ | | [facility] | [place], [place] | | | 2019 | | [place], [place] | [address] | | | | | [address] | [phone] | | | | | [phone] | | | +--------+ + + + [...] be different fr om the original. [facility] Discharge Summary Green Surgery Admit [...] by mouth once daily at bedtime. CALCIUM [id number] ORAL Take 2 tablets by mouth two [...] passing gas, please go directly to the [facility] department to be evaluated. Pain Medications: [...] the prescribed narcotic-opioid (e.g. oxycodone, hydrocodone, Vicodin, Etna, Percoce t, Dilaudid) as needed. Opioid pain medications may cause constipation, so be sure to take a stool softener if you take an opioid pain medication. FOLLOW-UP: Follow-up with your primary care provider for pain control. Dr. Tiwari's gis physical scientist will contact you to try to find a date for surgery. Follow Up: Future Appointments Provider Department Dept Phone Center 06/27/2019 11:55 AM [facility] PHONE/RN CLIN 3 Preoperative Medicine Clinic at [place] [address] [phone] [facility] 06/30/2019 11:30 AM [facility] in [facility] Schedule the following appointment(s) when you get home JONES TIWARI MD. Specialty: General Surgery Why: Dr. Tiwari's gis physical scientist will call you to schedule a surgery date. Contact information [address] [place] [address] [place] [address] Kenyatta Hylton MD. Specialty: Family [...] oriented. Grossly intact. Anisa Christopher MD PhD [facility] General Surgery ATTENDING PHYSICIAN STATEMENT I saw the patient and have repeated the pertinent portions of the history and physical exam . I agree with the findings, assessment and plan as documented by the resident. Johana Holloway MD Division of Gastrointestinal and General Surgery [facility] [address] [place] [address] Office: [phone] documented in this e ncounter Discharge Instructions [...] surgery date up as possible and the gis physical scientist will contact you. Elec tronically signed by [...] passing gas, please go directly to the [facility] rgency department to be evaluated. Pain Medications: [...] the prescribed narcotic-opioid (e.g. oxycodone, hydrocodone, Vicodin, Etna, Percoce t, Dilaudid) as needed. Opioid pain medications may cause constipation, so be sure to take a stool softener if you take an opioid pain medication. FOLLOW-UP: Follow-up with your primary care provider for pain control. Dr. Tiwari's gis physical scientist will contact you to try to find [...] | | 0 | | | | CRB&[id number]-GEN | mouth two times | | | [...] | | | | | [place], [place] | | | | | | [address] | | | | | | [phone] | | | | | | | [...] AMES | [address] | [place], [place] | | | JUSTINE DAWN OF CARE | [address] | [address] | | | TESTS | | | [...] [facility] | [address] | [place] [address] | | | SERVICES, CORE | CLARENCE [...] | | | LABORATORY | | | INDIAN | | | SERVICES, | | | [...] MDRD equation recommended by the National | [facility] | | Kidney Disease Education [...] + + + + | [facility] | [address] | [place] [address] | | | SERVICES, CORE | CLARENCE [...] [facility] | [address] | [place] [address] | | | SERVICES, CORE | PARK [...] 5-6 weeks | | | 850 - 45169 6-7 weeks | | | 4000 - 207288 7-12 weeks | | | 63005 - 689716 12-16 weeks | | | 41345 - 401497 16-29 | | | weeks 1400 - 74586 | | | 29-41 weeks 940 - 90544 | | | This test has not been approved for use as a tumor marker in | | | males or females. | | + + + + + + + + | Performing | Address | City/State/Zipcode | Phone Number | | Organization | | | | + + + + + | [facility] | [address] | [place] [address] | | | SERVICES, CORE | PARK [...] [facility] | [address] | [place] [address] | | | SERVICES, CORE | CLARENCE [...] | | | LABORATORY | | | INDIAN | | | SERVICES, | | | [...] MDRD equation recommended by the National | [facility] | | Kidney Disease Education Program. Estimated GFR Interpretive | LABORATORY | | Information: <60 mL/min/1.73 sq m Chronic Kidney | SERVICES, [facility] | | Disease <15 mL/min/1.73 sq [...] + + + + | [facility] | [address] | [place] [address] | | | LYDIA RANGEL | [address] | | | + + + + + ED INFORMATION EXCHANGE (05/13/2019 5:14 PM PDT) + + | Specimen | + + | | + + + + + | Narrative | Performed At | + + + | COLLECTIVE?NOTIFICATION?05/13/2019 17:13?DYLAN ROMERO?MRN: | [facility] | | [id number] Criteria Met Has Guidelines PDMP Security | MEDICAL | | and Safety No recent Security Events currently on file ED Care | [employer]OLOG[employer] | | Guidelines from [employer] Last Updated: 12/06/18 9:53 AM | | | Care Coordination: Receiving mental health services with | | | [employer].? Please contact [employer] for mental health concerns.? | | | Sarah/Toni Centeno: [phone]? Kishan: [phone].? | | | These are guidelines and the provider should exercise clinical | | | judgment when providing care. Care History Medical/Surgical | | | 05/11/19 12:00 AM [facility] Patient is | | | currently established with [facility]. If patient is seen in | [...] 12:00 AM | | | [facility] PATIENT HAS A PCP APT [...] SUDOGEST 30 MG TABLET 5 BERNARDO MARTIN, FLAKE [employer] 0 | | | 2019-03-30 SUDOGEST 30 MG TABLET 30 BERNARDO MARTIN, FLA[employer] 0 | | | 2019-03-20 ALPRAZOLAM 1 [...] (12 mo.) Facility Visits | | | [facility] 1 [facility] 1 | | | [facility] 2 Total 4 Note: Visits indicate total | | | known visits. Recent Emergency Department Visit Summary Date | | | Facility City State Type Diagnoses or Chief Complaint May 13, 2019 | | | [facility] [place] Emergency | | | 10,800. A303 May 10, [address] [facility] [place] | | | [...] | infrc w/o resid deficits Other termite helper (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 | | | Allergy status to penicillin December 03, 2018 [facility] | | | [facility] [place] Emergency RIGHT LEG PAIN DUE TO FALL | | | Strain of unsp musc/tend at lower leg level, right leg, init Jul | | | [facility] [place] 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 | | | Care Team Provider Specialty Phone Fax Service Dates Treva, | | | Rob Ferry Operator/Replacer Mar 27, 2018 - | | | Current Bernard Hylton MD Internal Medicine: Pulmonary Disease | | | Aug 23, 2018 - Current [employer] This patient has | | | registered at the [facility] [place] Emergency | | | Department For more information visit: | | | [email or web address] | | | [email or web address] PLEASE NOTE: 1. Any care recommendations [...] or completeness of information provided. ? 2019 [employer] | | | [employer]. - www.[email or web address] | | + + + + + | Procedure Note | + + | Service Account, Rtf Results Inbound - 05/13/2019 5:16 PM PDT Formatting of this | | note might be different from the original.COLLECTIVE?NOTIFICATION?05/13/2019 | | 17:13?DYLAN ROMERO? [facility] Has Guidelines PDMPSecurity and | | SafetyNo recent Security Events currently on fileED Care Guidelines from [employer] - | | [place] Updated: 12/06/18 9:53 AM Care Coordination:Receiving mental health | | services with [employer].? Please contact [employer] for mental health concerns.? | | Sarah/Toni [facility]: [phone]? Kishan: [phone].?These are guidelines | | and the provider should exercise clinical judgment when providing care.Care | | HistoryMedical/Kconanwo92/16/19 12:[address] [facility] Patient is currently | | established with [facility]. If patient is seen in the ED during business hours. | | Please contact CHWs at [facility].Care Recommendation:This patient has had 5 or [...] clinical judgment when providing care.08/23/18 12:00 AM [facility] | | Hospital PATIENT HAS A [...] 0 E.D. Visit Count (12 mo.)Facility Visits [facility] | | [facility] 1 [facility] [address] [facility] 2 Total 4 Note: | | Visits indicate total known visits. Recent Emergency Department Visit SummaryDate | | Facility City State Type Diagnoses or Chief Complaint May 13, 2019 [facility] | | [facility] [place] Emergency 10,800. A303 May 10, 2019 [facility] | | [place] Emergency Nausea with vomiting, unspecified Solitary pulmonary nodule | | Anxiety disorder, unspecified Ventral hernia without obstruction or gangrene | | Unspecified abdominal pain Diarrhea, unspecified Allergy status to oth | | drug/meds/biol subst status Prsnl hx of TIA (TIA), and cereb infrc w/o resid deficits | | Other prison (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 Allergy status to penicillin December 03, 2018 | | [facility] [place] Emergency RIGHT LEG PAIN DUE TO FALL Strain of | | unsp musc/tend at lower leg level, right leg, init Aug 22, 2018 [facility] | | [place] Emergency Other prison (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 Upper abdominal pain, | | unspecified Bariatric surgery status Allergy status to oth drug/meds/biol subst | | status Noninfective gastroenteritis and colitis, unspecified Obesity, unspecified | | Anxiety disorder, unspecified group home (current) use of aspirin Allergy status | | to penicillin Personal history of pulmonary embolism Recent Inpatient Visit | | SummaryNo recorded inpatient visits. Care TeamProvider Specialty Phone Fax Service Dates | | Rob Tilley Ferry Operator/Replacer Mar 27, 2018 - Current | | Bernard Hylton MD Internal Medicine: Pulmonary Disease Aug 23, 2018 - Current | | [employer] Lori patient has registered at the [facility] | | Emergency Department For more information visit: | | [email or web address] PLEASE | | NOTE: 1. Any care [...] to the | | limitations of applicable [employer] Policies. 3. You should consult directly with | | the organization that provided a care guideline or other clinical history with any | | questions about additional information or accuracy or completeness of information | | provided.? 2019 [employer]. - www.[email or web address] | |[facility] 3 | |Benzos 4 | |Opioids 7 | |Long Acting Opioids 0 | | | | | | | |E.D. Visit Count (12 mo.) | |Facility Visits | |[facility] 1 | |[facility] 1 | |[facility] 2 | |Total 4 | |Note: Visits indicate total known visits. | | | |Recent Emergency Department Visit Summary | |Date Facility City State Type Diagnoses or Chief Complaint | |May 13, 2019 [facility] [place] Emergency | | 10,800. A303 | | | |[facility] 2019 [facility] [place] [facility] | | Nausea with vomiting, unspecified | | Solitary pulmonary nodule | | Anxiety disorder, unspecified | | Ventral hernia without obstruction or gangrene | | Unspecified abdominal pain | | Diarrhea, unspecified | | Allergy status to oth drug/meds/biol subst status | | Prsnl hx of TIA (TIA), and cereb infrc w/o resid deficits | | Other prison (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 | | Allergy status to penicillin | | | |December 03, 2018 [employer] [facility]. [place] Emergency | | RIGHT LEG PAIN DUE TO FALL | | Strain of unsp musc/tend at lower leg level, right leg, init | | | |Aug 22, 2018 [facility] [place] 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 | | | |Care Team | |Provider Specialty Phone Fax Service Dates | |Rob Tilley Ferry Operator/Replacer Mar 27, 2018 - Current | |Bernard Hylton MD Internal Medicine: Pulmonary Disease Aug 23, 2018 - Current | | | |[employer] Portal | |This patient has registered at the [facility] [place] Emergency Departmen t | |For more information visit: [email or web address] | |PLEASE NOTE: | | 1. Any [...] information provided. | | | |? 2019 [employer]. - [email or web address] | + + + + + + + | Performing | Address | City/State/Zipcode | Phone Number | | Organization | | | | + + + + + | [facility] [facility] | [address], | [place], [place] | [phone] | | TECHNOLOGIES | [address] | [address] | | + + + + + [...]
--- OUTSIDE RECORDS SUMMARY | ~2019-05-23 | XMS | Encounter Summary ---
Demographics + + + | Address | [address] | | | [place] [address] | + + + | Home Phone [...] [place], [place] | | | | | [address] | | + + + + + | Ellie Vang | ECON | Unknown | | + + + + + Care Team Providers + +------+ + | Care Remote Sensing Research Scientist Name | Role | Phone | [...] | | 2019 | Visit | | [address] | | | | | | [place], [place] | | | | | | [address] | | | | | | [phone] | | | | | | | | +--------+ + + + + documented as of this encounter Visit Diagnoses Not on filedocumented in this encounter"
--- OUTSIDE RECORDS SUMMARY | ~2019-05-23 | XMS | Encounter Summary ---
Demographics + + + | Address | [address] | | | [place] [address] | + + + | Home Phone [...] [place], [place] | | | | | [address] | | + + + + + | Ellie Vang | ECON | Unknown | | + + + + + Care Team Providers + +------+ + | Care Trimming Inspector Name | Role | Phone | [...] | | | | and over, | [place], [place] | [facility] | | | | | adult (HCC) | [address] | for Health | | | | | Severe | Phone: | and Healing, | | | | | muscle | | Building [address], | | | | | deconditioni | Fax: | [address] | | | | | ng | [phone] | [place], [place] | | | | | Procedures | | [address] | | | | | PHYSICAL | | Phone: | | | | | THERAPY | | [phone] | | | | | REFERRAL | | Fax: | | | | | | | [phone] | +--------+--------+ + + + + Encounter Details +--------+ + + + + | Date | Type | Department | Care Team | Description | +--------+ + + + + | 02/02/ | Scale And Skip Car Operator | Digestive Health | Shereen Georges, | Morbid obesity with | | 2017 | | Center at [facility] [address] | ACNP [address] | BMI of 70 and over, | | | | [address] | Ave [facility] [place] | adult (HCC) (Primary | | | | Mailcode: Center | [address] | Dx); Severe muscle | | | | for Health and | | deconditioning | | | | Healing, [address] | | | | | | [place], [place] | | | | | | [address] | | | | | | | [...] | | | | | [place], [place] | | | | | | [address] | | | | | | [phone] | | | | | | | [...]
--- OUTSIDE RECORDS SUMMARY | ~2019-05-23 | XMS | Encounter Summary ---
Demographics + + + | Address | [address] | | | [place] [address] | + + + | Home Phone [...] [place], [place] | | | | | [address] | | + + + + + | Ellie Vang | ECON | Unknown | | + + + + + Care Team Providers + +------+ + | Care Lab Aide Name | Role | Phone | [...] 2012 | | Center at [facility] [address] | ACNP [address] | | | | | [address] | [place], [place] | | | | | Mailcode: [place] | [address] | | | | | for Health and | | | | | | [facility] 2 | | | | | | [facility] [place] | | | | | | [address] | | | | | | | [...] | | 2019 | Visit | | [address] | | | | | | [place], [place] | | | | | | [address] | | | | | | [phone] | | | | | | | | +--------+ + + + + documented as of this encounter Visit Diagnoses Not on filedocumented in this encounter"
--- OUTSIDE RECORDS SUMMARY | ~2019-05-23 | XMS | Encounter Summary ---
Demographics + + + | Address | [address] | | | [place] [address] | + + + | Home Phone [...] [place], [place] | | | | | [address] | | + + + + + | Ellie Vang | ECON | Unknown | | + + + + + Care Team Providers + +------+ + | Care Straw Boss Name | Role | Phone | [...] 04/28/ | Refill | Digestive Health | DannieoIn ochoa Vinicius, | Refill Request | | 2018 | | Center at [facility] [address] | MD [address] | | | | | [address] | [place], [place] | | | | | Mailcode: [place] | [address] | | | | | [facility] and | [phone] | | | | | [place] [address] | | | | | | [place], [place] | | | | | | [address] | | | | | | [phone] | | | +--------+--------+ + + + [...] | | | | [place], [place] | | | | | | [address] | | | | | | [phone] | | | | | | | | +--------+ + + + + documented as of this encounter Visit Diagnoses Not on filedocumented in this encounter"
--- OUTSIDE RECORDS SUMMARY | ~2019-05-23 | XMS | Encounter Summary ---
Demographics + + + | Address | [address] | | | [place] [address] | + + + | Home Phone [...] [place], [place] | | | | | [address] | | + + + + + | Ellie Vang | ECON | Unknown | | + + + + + Care Team Providers + +------+ + | Care Missile Technician Name | Role | Phone | + +------+ + | Fadi Goodrich DO | PCP | | + +------+ + Encounter Details +--------+ + + + + | Date | Type | Department | Care Team | Description | +--------+ + + + + | 10/27/ | Telephone | [facility] at [facility] | Leslie Mistry, | | | 2017 | | Floor [address] | PhD [address] [facility] | | | | | Brenton Flannery Mailcode: | Ryan Grace | | | | | [address] [place], [place] | | | | | Health and Healing, | [address] | | | | | [facility] | [phone] | | | | | Floor [place], [place] | | | | | | [address] | | | | | | [phone] | | | +--------+ + + + [...] [place] | | | | | | [address] | | | | | | [phone] | | | | | | | | +--------+ + + + + documented as of this encounter Visit Diagnoses Not on filedocumented in this encounter"
--- OUTSIDE RECORDS SUMMARY | ~2019-05-23 | XMS | Encounter Summary ---
Demographics + + + | Address | [address] | | | [place] [address] | + + + | Home Phone [...] [place], [place] | | | | | [address] | | + + + + + | Ellie Vang | ECON | Unknown | | + + + + + Care Team Providers + +------+ + | Care Ic Designer Custom Name | Role | Phone | + [...] | | | | Mailcode: Center | [place], [place] | with insulin therapy | | | | for Health and | [address] | (HCC) | | | | [facility] 2 | [phone] | | | | | [place], [place] | | | | | | [address] | | | | | | [phone] | | | +--------+---------+ + + + [...] of Visit: 1:30 to 1:55 (25 minutes [id number] with patient). Pt seen tog ether with Rossana Espinoza RD (training) SUBJECTIVE: Working with RN to get access to [employer] water exercises. States she was down to 374lbs by following LRD but with complications (n/v, fainting) - need to obtain records from PCP [facility]. Food Allergies: No Current Physical Activity: Nothing - plans to start swimming this week Diet Recall [place] (100kcal) + Activia Light - 60kcal Atkins [...] post-surgery diet progression. 4. Call or send [employer] message to dietitian with any questions. Contact information was provided. Follow up with dietitian via telephone 1 week after beginning water exercises for weight ch addie. Yuli Childs RD, [facility], [place] Pager# [phone] Rossana Espinoza MS, RD Pgr #[phone] documented in this enco unter Plan of [...] | | | | | [place], [place] | | | | | | [address] | | | | | | [phone] | | | | | | | | +--------+ + + + + documented as of this encounter Procedures + +--------+ + + + | Procedure Name | Priori | Date/Time | Associated Diagnosis | Comments | | | ty | | | | + +--------+ + + + | [place] MNT RE-ASSESSMNT | Routin | 12/27/2014 | [...]
--- OUTSIDE RECORDS SUMMARY | ~2019-05-23 | XMS | Encounter Summary ---
Demographics + + + | Address | [address] | | | [place] [address] | + + + | Home Phone [...] [place], [place] | | | | | [address] | | + + + + + | Ellie Vang | ECON | Unknown | | + + + + + Care Team Providers + +------+ + | Care Construction Skills Teacher Name | Role | Phone [...] | | | | | obesity | [place], [place] | | | | | | (HCC) | [address] | | | | | | Procedures | Phone: | | | | | | PHYSICAL | | | | | | | THERAPY | Fax: | | | | | | REFERRAL | [phone] | | +--------+--------+ + + + + Encounter Details +--------+ + + + + | Date | Type | Department | Care Team | Description | +--------+ + + + + | 06/22/ | Seam Rubbing Machine Operator | Digestive Health | Ion Pandey, | Pre-op evaluation | | 2016 | | Center at [facility] [address] | [address] | (Primary Dx); Morbid | | | | [address] | [place], [place] | obesity (HCC) | | | | Mailcode: Center | [address] | | | | | for Health and | | | | | | Healing, Building [address] | | | | | | [place], [place] | | | | | | [address] | | | | | | [phone] | | | +--------+ + + + [...] | | | | | [place], [place] | | | | | | [address] | | | | | | [phone] | | | | | | | | +--------+ + + + + documented as of this encounter Visit Diagnoses + + | Diagnosis | + + | Pre-op evaluation - Primary Preoperative examination, unspecified | + + | Morbid obesity (HCC) Morbid obesity | + + documented in this encounter"
--- OUTSIDE RECORDS SUMMARY | ~2019-05-23 | XMS | Encounter Summary ---
Demographics + + + | Address | [address] | | | [place] [address] | + + + | Home Phone [...] | Author | [facility] | | | and Jeffana | + + + | Organization | [facility] | | | [...] Providers + +------+ + | Care Instrument Designer Name | Role | Phone | [...] RIZVI F | | | | | [place], [place] | [place] [address] | | | | | [address] | [phone] | | | | | [phone] | | | +--------+ + + + [...] | | 2018 | Visit | | [facility] [address] | | | | | | [address] | | | | | | [place] [address] | | | | | | [phone] | | | | | | | [...] 0.61 m/s | | | MV Dec Carter: 2.43 m/s2 MV DecT: 247.51 ms MV E Jeffrey: | | | 0.60 m/s MV E/A Ratio: 0.98 MV PHT: 71.78 ms MVA By | | | PHT: 3.06 cm2 Septal e': 0.06 m/s Septal E/e': 9.54 | | | Lateral e': 0.10 m/s Lateral E/e': 5.84 RAP: 5 mmHg RV | | | s': 0.11 m/s Warper Fixer: JESSICA Authenticated by: Darryl | | | Rossyhelena Report Date/Time: 02-22-2019 20:8:36 | | + + + + --------+ | Procedure Note | + --------+ | David Burgess Conversion - 03/17/2019 1308 PDT Patient Name: Tiny Cristina of : | | 1975 Performing Physician: Darryl | | Rossyhelena INDICATIONS------ | | -----Sinus Tachycardia CONCLUSIONS 1. [...] cmLVIDd: 4.70 cmLVPWd: 0.79 cmLVOT Area: 3.58 we3ASHC Diam: 2.13 cm%FS: 39.25 | | %EF(Teich): [...] | Index (A-L): 14.72 ml/m2LAAs A2C: 10.03 ri6QRREK A-L A2C: 22.69 mlLALs A2C: 3.76 | | cmLAAs A4C: 13.41 nt8KIZPC A-L A4C: 36.80 mlLALs A4C: 4.14 cmRAAs: 11.18 | | ab3TLLCV A-L: 22.84 mlRAESV MOD: 22.10 mlRALs: 4.64 cmTAPSE: 2.04 cmAV maxPG: | | 6.55 mmHgAV meanP.52 mmHgAV Vmax: 1.27 m/Genesis Vmean: 0.88 m/Genesis VTI: 26.50 | | cmAVA Vmax: 2.49 cm2AVA (VTI): 2.39 zz3IWSR Vmax: 0.00 cm2/m2AVAI (VTI): 0.00 | | cm2/m2LVOT maxP.17 mmHgLVOT meanP.82 mmHgLVSI Dopp: 30.83 ml/m2LVSV Dopp: | | 63.52 mlLVOT Vmax: 0.89 m/sLVOT Vmean: 0.65 m/sLVOT VTI: 17.71 cmMV A Jeffrey: | | 0.61 m/sMV Dec Carter: 2.43 m/s2MV DecT: 247.51 msMV E Jeffrey: 0.60 m/sMV E/A Ratio: | | 0.98MV PHT: 71.78 msMVA By PHT: 3.06 my0Alzdrt e': 0.06 m/sSeptal E/e': | | 9.54Lateral e': 0.10 m/sLateral E/e': 5.84RAP: 5 mmHgRV s': 0.11 m/s | | Warper Fixer: DHAuthenticated by: Darryl [facility] Date/Time: 02-22-2019 20:8:36 | | IMPRESSION: [...] A Jeffrey: 0.61 m/s | |MV Dec Carter: 2.43 m/s2 | |MV DecT: 247.51 ms | |MV E Jeffrey: 0.60 m/s | |MV E/A Ratio: 0.98 | |MV PHT: 71.78 ms | |MVA By PHT: 3.06 cm2 | |Septal e': 0.06 m/s | |Septal E/e': 9.54 | |Lateral e': 0.10 m/s | |Lateral E/e': 5.84 | |RAP: 5 mmHg | |RV s': 0.11 m/s | | | |Warper Fixer: | |Authenticated by: Darryl Blairhelena | |Report Date/Time: 02-22-2019 20:8:36 | | [...]
--- OUTSIDE RECORDS SUMMARY | ~2019-05-23 | XMS | Encounter Summary ---
Demographics + + + | Address | [address] | | | [place] [address] | + + + | Home Phone [...] | [facility] | | | and Jeffana | + + + | Organization | 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 | | | | | heart | PAYAL GASTON | DISORDERS LAB | | | | | failure | DMITRI F | [address] | | | | | (HCC) | [place], [place] | [address] | | | | | History of | [address] | [place], [place] | | | | | sinus | Phone: | [phone] | | | | | tachycardia | [phone] | Phone: | | | | | History of | Fax: | [phone] | | | | | bariatric | [phone] | Fax: | | | | | surgery | | [phone] | | | | | Sleep apnea [...] + + | 04/28/ | Office | [facility] | Sulema Altamirano | Chronic diastolic | | 2019 | Visit | CARDIOLOGY [place] | [address] | heart failure (HCC) | | | | [address] | PAYAL RICHEY | (Primary Dx); | | | | [address] | [place] [address] | History of sinus | | | | [place], [place] | [phone] | tachycardia; History | | | | [address] | | of stroke; HTN, | | | | [phone] | | goal below 130/80; | | [...] have referred you to Dr. Rascon at [facility] , call [phone] for an appointment next week I made [...] dysfunction with previous dysfunctional RV treated at [facility] with diuresis and hospitalization for one month., sleep apnea treated with BiPAP, t ype II diabetes, hypothyroidism, morbid obesity with alveolar hypoventilation, Frandy-en-Y ga stric bypass surgery 02/2018, osteoarthritis,DVT and PE 2017, hypokalemia and hyperuricemia which is being followed by conference assistant Dr. Fu, and SELINA Escobar. Her current [...] today that she never heard from the [place] [facility] providers to her sup posed [...] surgery, and weight down 123 pounds since [facility] 2018 when weighed 394 lbs. [...] by Dr. Franks, endocrin ologist at [facility]) . Denies excessive thirst or [...] knee pain and hernia pain Lives in [facility] ith her mother who smokes. . Sister is memory care director. Grandchildren ages 4 and 7 live with he r daughter and son-in-law. Disabled , on disability .01/24/2019: working with [employer] to get her own place. Outpatient Medications [...] film Suboxone 2 mg-0.5 mg sublingual film Bvnousl-Sdhjpxlis-Piymfph D (CITRACAL CALCIUM+D PO) Take 2 tablets [...] Pen Needle (NOVOFINE) 32G X 6 MM [facility] Novofine 32 32 gauge x 1/4" needle [...] monohydrate/macrocrystals 100 m g capsule nystatin (NYSTATIN) 495671 UNIT/GM powder Nyamyc 100,000 unit/gram topical powder [...] Take 30 mg by mouth Daily. thyroid (ASPHALT RAKER THYROID) 30 mg tablet ASPHALT RAKER Thyroid 30 mg tablet TAKE ONE TABLET [...] Ascending aorta not well seen Echo: 02/16/2017: ([facility] normal EF of 60-65% , accurate assessment of diastolic function i mpeded by poor tissue doppler, RV normal in size and function, with no significant valvular disease, and aortic root, ascending aorta , and aortic arch normal Echo: 01/02/2016 ([facility]): TDS, cardiac chamber dimensions grossly NML, LVEF >70%, rodriguez tolic function normal for patient. Unable to assess segmental wall motion. RV grossly norm al. Aortic valve sclerotic, no As/AI. Mitral and tricuspid valves grossly normal. Trace T R. No pericardial effusion VASCULAR TESTING AND PROCEDURES Left lower extremity DVT, presumed PE: 10/2015 [facility]. treated with heparin drip and Coumadin 10 in hospital, with Coumadin 6 months as outpatient, ASA 81 mg continued Venous US: right leg, 04/28/2016: No evidence of DVT. EKG EKG 10/27: ([facility]) Normal sinus rhythm. Normal EKG. Rate 93 bpm, MS 172 ms, QRS 90 ms, QTC 465 ms personally reviewed by me in the office today) EK02/05: Sinus tachycardia, otherwise normal. Rate 160 bpm, MS 174 ms, QRS 74 ms, QTC 451 ms (personally reviewed by me in the office today and no significant change seen fro m EKG done in October 2016 except for faster heart rate) EK04/26/2018: Normal sinus rhythm, rate 74 bpm, MS 182 ms, QRS 96 ms, QTC 472 ms, alexandru genao personally reviewed by me, and compared to previous EKG, heart rate is now better controll ed, otherwise similar morphology EK04/28/2019: Normal sinus rhythm, right axis. Rate 74 bpm, MS 170 ms, QRS 88 ms, QTC 45 [...] heard from the sleep providers at the [place] [facility] in [place], so I have referred her again to Dr. Rascon at the [place] [facility], and she ne eds [...] Placed This Encounter Procedures Ambulatory Referral to [facility] Pulmonology- Sleep study as well ECG [...] past surgical history. Problem list. Maryse MARKS [facility] Cardiology 04/28/2019 documente d in this encounter Plan of Treatment +--------+---------+ + + + | Date | Type | Specialty | Care Team | Description | +--------+---------+ + + + | 05/26/ | Office | Audiology | Sherron Freedman, [place] | | | 2018 | Visit | | [facility] [address] | | | | | | [address] [facility] | | | | | | [place] [address] | | | | | | [phone] | | | | | | | | +--------+---------+ + + + + +--------+ + + | Name | Priori | Associated Diagnoses | Order Schedule | | | ty | | | + +--------+ + + | Ambulatory Referral to [facility] | Routin | Chronic diastolic | [...] | | | | | by [facility] Read Only, | | | | | | [facility] ([id number]), | | | | | | marketing editor Glen Alberto | | | | [...]
--- OUTSIDE RECORDS SUMMARY | ~2019-05-23 | XMS | Encounter Summary ---
Demographics + + + | Address | [address] | | | [place] [address] | + + + | Home Phone [...] [place], [place] | | | | | [address] | | + + + + + | Ellie Vang | ECON | Unknown | | + + + + + Care Team Providers + +------+ + | Care Automotive Paint Technician Name | Role | Phone | [...] | 2015 | | Center at [facility] [address] | [address] | | | | | [place] | Lesly Gutiérrez [place], | | | | | Mailcode: [place] | [place] [address] | | | | | for Health and | | | | | | [facility], [place] [address] | | | | | | [place], [place] | | | | | | [address] | | | | | | [phone] | | | +--------+ + + + [...] | | | | [place] | | | | | | [address] | | | | | | [phone] | | | | | | | | +--------+ + + + + documented as of this encounter Visit Diagnoses Not on filedocumented in this encounter"
--- OUTSIDE RECORDS SUMMARY | ~2019-05-23 | XMS | Encounter Summary ---
Demographics + + + | Address | [address] | | | [place] [address] | + + + | Home Phone [...] [place], [place] | | | | | [address] | | + + + + + | Ellie Vang | ECON | Unknown | | + + + + + Care Team Providers + +------+ + | Care Rcis Name | Role | Phone | + [...] | | 2019 | | Center at [facility] [address] | AGACNP [address] | | | | | [address] | [place], [place] | | | | | Mailcode: [place] | [address] | | | | | for [facility] and | | | | | | [place] [address] | | | | | | [place], [place] | | | | | | [address] | | | | | | | [...] | | | | | [place], [place] | | | | | | [address] | | | | | | [phone] | | | | | | | | +--------+ + + + + documented as of this encounter Visit Diagnoses Not on filedocumented in this encounter"
--- OUTSIDE RECORDS SUMMARY | ~2019-05-23 | XMS | Encounter Summary ---
Demographics + + + | Address | [address] | | | [place] [address] | + + + | Home Phone [...] [place], [place] | | | | | [address] | | + + + + + | Ellie Vang | ECON | Unknown | | + + + + + Care Team Providers + +------+ + | Care Check Weigher Name | Role | Phone | [...] | | Center at [facility] [address] | ACNP [address] | | | | | [address] | Ave [place], [place] | | | | | Mailcode: [place] | [address] | | | | | for Health and | | | | | | [facility] 2 | | | | | | [facility] [place] | | | | | | [address] | | | | | | | [...] [place] | | | | | | [address] | | | | | | [phone] | | | | | | | | +--------+ + + + + documented as of this encounter Visit Diagnoses Not on filedocumented in this encounter"
--- OUTSIDE RECORDS SUMMARY | ~2019-05-23 | XMS | Encounter Summary ---
Demographics + + + | Address | [address] | | | [place] [address] | + + + | Home Phone [...] [place], [place] | | | | | [address] | | + + + + + | Ellie Vang | ECON | Unknown | | + + + + + Care Team Providers + +------+ + | Care Rn Cvicu Name | Role | Phone | + +------+ + | Fadi Goodrich DO | PCP | | + +------+ + Encounter Details +--------+---------+ + + + | Date | Type | Department | Care Team | Description | +--------+---------+ + + + | 01/11/ | Office | Digestive Health | | Morbid obesity (HCC) | | 2018 | Visit | Center at [facility] [address] | | (Primary Dx) | | | | [address] | | | | | | Mailcode: [place] | | | | | | [facility] Health and | | | | | | [facility] 2 | | | | | | [place], [place] | | | | | | [address] | | | | | | [phone] | | | +--------+---------+ + + + [...] of Class: 1055 until 1155 (60 minutes pkxp-di-umbq with patient) Teaching Methods: PowerPoint and verbal [...] a journal with fluid/protein d. Transportation 7. [place] [facility] 8. Surgical [...] | | | | | [place], [place] | | | | | | [address] | | | | | | [phone] | | | | | | | | +--------+ + + + + documented as of this encounter Visit Diagnoses + + | Diagnosis | + + | Morbid obesity (HCC) - Primary Morbid obesity | + + documented in this encounter"
--- OUTSIDE RECORDS SUMMARY | ~2019-05-23 | XMS | Encounter Summary ---
Demographics + + + | Address | [address] | | | [place] [address] | + + + | Home Phone [...] [place], [place] | | | | | [address] | | + + + + + | Ellie Vang | ECON | Unknown | | + + + + + Care Team Providers + +------+ + | Care Research Quality Assurance Analyst Name | Role | Phone | [...] | | | | | [place], [place] | | | | | | [address] | | | | | | [phone] | | | | | | | | +--------+ + + + + documented as of this encounter Visit Diagnoses Not on filedocumented in this encounter"
--- OUTSIDE RECORDS SUMMARY | ~2019-05-23 | XMS | Encounter Summary ---
Demographics + + + | Address | [address] | | | [place] [address] | + + + | Home Phone [...] [place], [place] | | | | | [address] | | + + + + + | Ellie Vang | ECON | Unknown | | + + + + + Care Team Providers + +------+ + | Care Project Administrative Assistant Name | Role | Phone [...] + + | 01/01/ | Emergency | [facility] Emergency | Fide Hester | | | 2017 - | | Department [address] | MD Raza [address] | | | | | [address] | [address] | | | 01/02/ | | [facility] | [place], [place] | | | 2017 | | [place], [place] | [address] | | | | | [address] | [phone] | | | | | [phone] | | | | | | | Jaime Yee, | | | | | | ANP [address] | | | | | | [facility] | | | | | | [place], [place] | | | | | | [address] | | | | | | [phone] | | | | | | | | | | | | Sheree Aguiar MD | | | | | | [address] | | | | | | [place], [place] | | | | | | [address] | | | | | | | | | | | | Felix Cardoza, | | | | | | SALES AND MARKETING INTERN [address] | | | | | | [facility] | | | | | | [place], [place] | | | | | | [address] | | | | | | [phone] | | | | | | | [...] ready for discharge. Thank you for choosing [facility] for your healthcare needs. Abdominal Hernia [...] living will and a durable power of managing attorney for health care. Bring a copy [...] apply lotions, perfume s, deodorants, or nail cambodian. Do not shave the surgical site yourself. [...] driving, and getting back to your nor [facility] routine. When should you call your [...] Repair: Before Your Surgery", log into your Zaldiva a ccount at [email or web address]. You can enter U288 in the "GoSave Library" search box . Not on Zaldiva? Review the SurfAirt section of your After Visit Summary for directions on anjel aguero to sign up. Current as of: March 04, 2016 Content Version: 11.2 8859-9764 [employer]. Care instructions adapted under license by [facility]. If you have questions about a medical condition or this instr uction, always ask your healthcare professional. [employer] disclaims any curly anty or liability for [...] changes in the way you eat. An commercial sales specialist to help you be more active [...] Prepare for Weight-Loss Surgery", log into your Zaldiva account at [email or web address]. You can enter C413 in the "GoSave Library" s earch box. Not on Zaldiva? Review the Zaldiva section of your After Visit Summary for directions on anjel aguero to sign up. Current as of: May 08, 2016 Content Version: 11.2 0110-8617 [employer]. Care instructions adapted under license by [facility]. If you have questions about a medical condition or this instr uction, always ask your healthcare professional. [employer] disclaims any curly anty or liability for [...] | | 0 | | | | [id number] | mouth two times | | | [...] - 01/02/2017 7:49 AM PDT [facility] EMERGENCY GENERAL SURGERY Division [...] wall hernias, laci hobbs was flown from [place] with abdominal pain from a recurrent, reducible [...] uss with Dr. Moore. Mary Ball MD [id number] [facility] A [address] [place] [facility] [place] [address] documented in this en counter Plan of [...] | | 2018 | Visit | | [address] | | | | | | [place], [place] | | | | | | [address] | | | | | | [phone] | | | | | | | [...] [facility] | [address] | [place], [place] | | | [place] POINT OF CARE | [address] | [address] | | | TESTS | | | [...] | | | LABORATORY | | | MALAYSIAN | | | SERVICES, | | | [...] the MDRD equation recommended by the | [facility] | | National Kidney Disease Education Program. [...] HOSPITAL LABORATORY | [address] | [place] [address] | | | LYDIA RANGEL | CLARENCE [...] [facility] | [address] | [place], [place] | | | [place] POINT OF CARE | [facility] | [address] | | | TESTS | | | [...] | [facility] | [address] | [place] [address] | | | SERVICES, CORE | PARK [...] + | [facility] | [address] | [place] [address] | | | SERVICES, CORE | CLARENCE [...] | + + + + + | [facility] - AIRPORT - | [address] | [place] [address] | | | [place] | | | | + + + [...] [facility] | [address] | [place] [address] | | | SERVICES, CORE | CLARENCE [...] + + + | [facility] | [address] | [place], [place] | | | [place] POINT OF CARE | [address] | [address] | | | TESTS | | | [...] [facility] | [address] | [place] [address] | | | SERVICES, | [address] [...] | + + + + + | [facility] | [address] | [place] [address] | | | SERVICES, | [address] [...] | [facility] | [address] | [place] [address] | | | SERVICES, CORE | PARK [...] HOSPITAL LABORATORY | [address] | [place] [address] | | | SERVICES, CORE | PARK [...] | | | LABORATORY | | | MALAYSIAN | | | SERVICES, | | | [...] [facility] | [address] | [place] [address] | | | LYDIA RANGEL | [address] | | | + + + + + ED INFORMATION EXCHANGE (01/01/2017 8:22 AM PDT) + + + + + + | Component | Value | Ref Range | Performed | Pathologist | | | | | At | Signature | + + + + + + | [facility] | [id number] | [facility] | | | | [id number] | | MEDICAL | | | | [...] ---- | | | RADHA GOODRICH at [facility] | | | [facility] Unknown Primary Care | | | Unknown - Current Radha Goodrich DO | | | [phone] Primary Care | | | Unknown - Current | | + + + + + + + + | Performing | Address | City/State/Zipcode | Phone Number | | Organization | | | | + + + + + | [facility] | [address], | [place], [place] | [phone] | | TE[employer] | [address] | [address] | | + + + + + [...] | | | | | | | [facility] 01/01/17 at 2200, Until | | | | | | | Discontinued | | | | | | + +-------+ + +---+---------+ + +---+ | | | + +---+ | insulin lispro (HUMALOG) | | | injection subcutaneous, FOUR | | | TIMES DAILY, First dose on [facility] | | | 01/01/17 at 2200, Until | | | Discontinued | | + +---+ | | | + +---+ + +-------+ +--------+---+---+ | magnesium oxide (MAG-OX) tablet | Given | 01/03/20 | 400 mg | | | | 400 mg 400 mg, oral, DAILY, | | 17 8:51 | | | | | First dose on [facility] 01/01/17 at 1945, | | AM [...] | | | | ONCE, 1 dose, [facility] 01/01/17 at 0945 | | AM [...] | | | | First dose on [facility] 01/01/17 at 2100, | | AM PDT [...]
--- OUTSIDE RECORDS SUMMARY | ~2019-05-23 | XMS | Encounter Summary ---
Demographics + + + | Address | [address] | | | [place] [address] | + + + | Home Phone [...] [place], [place] | | | | | [address] | | + + + + + | Ellie Vang | ECON | Unknown | | + + + + + Care Team Providers + +------+ + | Care Rubber Mill Operator Name | Role | Phone [...] at | | | | | | [facility] | | | | | | [address] | | | | | | Mailcode: OC2L | | | | | | [facility] | | | | | | and Healing, | | | | | | [address] | | | | | | [place], [place] | | | | | | [address] | | | | | | [phone] | | | +--------+ + + + [...] | +--------+ + + + + | 11/29/ | Procedure | Surgery | | | | 2018 | Pass | | | | +--------+ + + + + | 06/30/ | Office | Cardiology | Randell Franks, | | | 2018 | Visit | | [address] | | | | | | [place], [place] | | | | | | [address] | | | | | | [phone] | | | | | | | | +--------+ + + + + documented as of this encounter Visit Diagnoses Not on filedocumented in this encounter"
--- OUTSIDE RECORDS SUMMARY | ~2019-05-23 | XMS | Encounter Summary ---
Demographics + + + | Address | [address] | | | [place] [address] | + + + | Home Phone [...] [place], [place] | | | | | [address] | | + + + + + | Ellie Vang | ECON | Unknown | | + + + + + Care Team Providers + +------+ + | Care Machine Brush Maker Name | Role | Phone | [...] | | 2019 | Visit | | [address] | | | | | | [place], [place] | | | | | | [address] | | | | | | [phone] | | | | | | | | +--------+ + + + + documented as of this encounter Visit Diagnoses Not on filedocumented in this encounter"
--- OUTSIDE RECORDS SUMMARY | ~2019-05-23 | XMS | Encounter Summary ---
Demographics + + + | Address | [address] | | | [place] [address] | + + + | Home Phone [...] [place], [place] | | | | | [address] | | + + + + + | Ellie Vang | ECON | Unknown | | + + + + + Care Team Providers + +------+ + | Care Pot Builder Name | Role | Phone | [...] 2019 | | Preventive at [facility] | [address] | stop any | | | | [address] | Ave [place], [place] | medications? ) | | | | Mailcode: [place] | [address] | | | | | [facility] | [phone] | | | | | and Healing, | | | | | | [address] | | | | | | [place], [place] | | | | | | [address] | | | | | | [phone] | | | +--------+ + + + [...] | | 2019 | Visit | | [address] | | | | | | [place] [facility] [place] | | | | | | [address] | | | | | | [phone] | | | | | | | | +--------+ + + + + documented as of this encounter Visit Diagnoses Not on filedocumented in this encounter"
--- OUTSIDE RECORDS SUMMARY | ~2019-05-23 | XMS | Encounter Summary ---
Demographics + + + | Address | [address] | | | [place] [address] | + + + | Home Phone [...] [place], [place] | | | | | [address] | | + + + + + | Ellie Vang | ECON | Unknown | | + + + + + Care Team Providers + +------+ + | Care Plastic Extruding Machine Operator Name | Role | Phone [...] Medical Records | | 2018 | | [place] [address] | [address] | Review | | | | Ave Mailcode: CH4S | [place], [place] | | | | | [facility] | [address] | | | | | and [address], | [phone] | | | | | [place] [address] | | | | | | Floor [place], [place] | | | | | | [address] | | | | | | [phone] | | | +--------+ + + + [...] | | | | | [place] | | | | | | [address] | | | | | | [phone] | | | | | | | | +--------+ + + + + documented as of this encounter Visit Diagnoses Not on filedocumented in this encounter"
--- OUTSIDE RECORDS SUMMARY | ~2019-05-23 | XMS | Encounter Summary ---
Demographics + + + | Address | [address] | | | [place] [address] | + + + | Home Phone [...] [place], [place] | | | | | [address] | | + + + + + | Ellie Vang | ECON | Unknown | | + + + + + Care Team Providers + +------+ + | Care Police Officer Crime Prevention Name | Role | Phone | + [...] | | 2019 | Visit | | [address] | | | | | | [place], [place] | | | | | | [address] | | | | | | [phone] | | | | | | | | +--------+ + + + + documented as of this encounter Visit Diagnoses Not on filedocumented in this encounter"
--- OUTSIDE RECORDS SUMMARY | ~2019-05-23 | XMS | Encounter Summary ---
Demographics + + + | Address | [address] | | | [place] [address] | + + + | Home Phone [...] [place], [place] | | | | | [address] | | + + + + + | Ellie Vang | ECON | Unknown | | + + + + + Care Team Providers + +------+ + | Care Rail Maintenance Worker Name | Role | Phone | + +------+ + | Kenyatta Cardenas MD | PCP | | + +------+ + Encounter Details +--------+ + + + + | Date | Type | Department | Care Team | Description | +--------+ + + + + | 03/02/ | Hygiene Teacher | Digestive Health | Keren Allen, | | | 2019 | | Center at [facility] [address] | AGACNP [address] | | | | | [address] | [place] [facility] [place] | | | | | Mailcode: [place] | [address] | | | | | for Health and | | | | | | [facility] 2 | | | | | | [place], [place] | | | | | | [address] | | | | | | | [...] | | | | | [place], [place] | | | | | | [address] | | | | | | [phone] | | | | | | | | +--------+ + + + + documented as of this encounter Visit Diagnoses Not on filedocumented in this encounter"
--- OUTSIDE RECORDS SUMMARY | ~2019-05-23 | XMS | Encounter Summary ---
Demographics + + + | Address | [address] | | | [place] [address] | + + + | Home Phone [...] [place], [place] | | | | | [address] | | + + + + + | Ellie Vang | ECON | Unknown | | + + + + + Care Team Providers + +------+ + | Care Acid Tester Name | Role | Phone | [...] 2017 | | Center at [facility] [address] | ACNP [address] | | | | | [address] | Ave [place], [place] | | | | | Mailcode: [place] | [address] | | | | | for Health and | [phone] | | | | | [facility] 2 | | | | | | [place], [place] | | | | | | [address] | | | | | | | [...] [place] | | | | | | [address] | | | | | | [phone] | | | | | | | | +--------+ + + + + documented as of this encounter Visit Diagnoses Not on filedocumented in this encounter"
--- OUTSIDE RECORDS SUMMARY | ~2019-05-23 | XMS | Encounter Summary ---
[...] [place], [place] | | | | | [address] | | + + + + + | Ellie aVng | ECON | Unknown | | + + + + + Care Team Providers + +------+ + | Care Integrated Specialist Name | Role | Phone | [...] | | 2017 | | Preventive at [facility] | MD [address] | | | | | [address] | [place] [facility] [place] | | | | | Mailcode: [facility] | [address] | | | | | [facility] | [phone] | | | | | and [address] | | | | | | [address] | | | | | | [facility] [place] | | | | | | [address] | | | | | | [phone] | | | +--------+ + + + [...] [place] | | | | | | [address] | | | | | | [phone] | | | | | | | | +--------+ + + + + documented as of this encounter Visit Diagnoses Not on filedocumented in this encounter"
--- OUTSIDE RECORDS SUMMARY | ~2019-05-23 | XMS | Encounter Summary ---
Demographics + + + | Address | [address] | | | [place] [address] | + + + | Home Phone [...] [place], [place] | | | | | [address] | | + + + + + | Ellie Vang | ECON | Unknown | | + + + + + Care Team Providers + +------+ + | Care Sales Support Rep Name | Role | Phone | [...] | | | | | (HCC) | [place], [place] | Mailcode: | | | | | Procedures | [address] | [address] [facility] | | | | | CT ABDOMEN & | Phone: | Hospital | | | | | PELVIS [address] | | [place], [place] | | | | | IV CONTRAST | Fax: | [address] | | | | | [address] | [phone] | Phone: | | | | | ABDOMEN&PELV | | [phone] | | | | | IS | | Fax: | | | | | W/CONTRAST | | [phone] | | | | | See chart [...] | | | | | | | [place], [place] | | | | | | | [address] | | | | | | | Phone: | | | | | | | [phone] | | | | | | | Fax: | | | | | | | [phone] | +--------+--------+ + + + + Encounter [...] | | [address] | Ave [place], [place] | obesity (HCC) | | | | Mailcode: [place] | [address] | | | | | for Health and | [phone] | | | | | [facility] 2 | | | | | | [place], [place] | | | | | | [address] | | | | | | [phone] | | | +--------+---------+ + + + [...] in th e air, Use a chair pad maker.... And get it really dry. Then use corn starch ..... Then use medicated powder... Please go to the 3rd floor for the study... [place] [address] documented in this encounter Progress Notes Shereen Pinto ACNP - 10/02/2014 11:14 AM PDTFormatting of this note might be different fro m the original. BARIATRIC INITIAL VISIT Provider: Shereen Pinto DNP, ACNP, ACQUISITION CONSULTANT Referring Provider: Dr. Goodrich Reason for Requested [...] with the surgeon. Shereen Pinto DNP, ACNP, ACQUISITION CONSULTANT Nurse Practitioner for Bariatric Surgery [facility] | CH[address] | [place], [place] | [address] | Potential Contraindications to Bariatric Surgery Age [...] | | | | | [place], [place] | | | | | | [address] | | | | | | [phone] | | | | | | | [...]
--- OUTSIDE RECORDS SUMMARY | ~2019-05-23 | XMS | Encounter Summary ---
Demographics + + + | Address | [address] | | | [place] [address] | + + + | Home Phone [...] [place], [place] | | | | | [address] | | + + + + + | Ellie Vang | ECON | Unknown | | + + + + + Care Team Providers + +------+ + | Care Furniture Crater Name | Role | Phone | + [...] 2019 | | Preventive at [facility] | MD [address] | (PHENTERMINE 37.5 mg | | | | [address] | [place], [place] | oral tablet); | | | | Mailcode: [place] | [address] | Refill Request | | | | [facility] | [phone] | | | | | and [address], | | | | | | [address] | | | | | | [place], [place] | | | | | | [address] | | | | | | [phone] | | | +--------+--------+ + + + [...] [place] | | | | | | [address] | | | | | | [phone] | | | | | | | | +--------+ + + + + documented as of this encounter Visit Diagnoses Not on filedocumented in this encounter"
--- OUTSIDE RECORDS SUMMARY | ~2019-05-23 | XMS | Encounter Summary ---
Demographics + + + | Address | [address] | | | [place] [address] | + + + | Home Phone [...] [place], [place] | | | | | [address] | | + + + + + | Ellie Vang | ECON | Unknown | | + + + + + Care Team Providers + +------+ + | Care Lay Out Inspector Name | Role | Phone | [...] | | Review | | | | [facility]Note 2] | | | | | | [address] | | | | | | Mailcode: OC2L | | | | | | [facility] | | | | | | and [address], | | | | | | [address] | | | | | | [place], [place] | | | | | | [address] | | | | | | [phone] | | | +--------+ + + + [...] | | | | | [place], [place] | | | | | | [address] | | | | | | [phone] | | | | | | | | +--------+ + + + + documented as of this encounter Visit Diagnoses Not on filedocumented in this encounter"
--- OUTSIDE RECORDS SUMMARY | ~2019-05-23 | XMS | Encounter Summary ---
Demographics + + + | Address | [address] | | | [place] [address] | + + + | Home Phone [...] [place], [place] | | | | | [address] | | + + + + + | Ellie Vang | ECON | Unknown | | + + + + + Care Team Providers + +------+ + | Care Senior Cost Estimator Name | Role | Phone | [...] | | bypass | [place], [place] | [facility] | | | | | Nausea and | [address] | for Health | | | | | vomiting, | Phone: | and Healing, | | | | | intractabili | | Building [address] | | | | | ty of | Fax: | [place], [place] | | | | | vomiting not | [phone] | [address] | | | | | specified, | | Phone: | | | | | unspecified | | [phone] | | | | | vomiting | | Fax: | | | | | type | | [phone] | | | | | Decreased | [...] | | 2017 | | Center at [facility] [address] | MD [address] | | | | [address] | [place], [place] | | | | | Mailcode: [place] | [address] | | | | | for Health and | | | | | | [place] [address] | | | | | | [place], [place] | | | | | | [address] | | | | | | [phone] | | | +--------+ + + + [...] | | | | | [place], [place] | | | | | | [address] | | | | | | [phone] | | | | | | | [...]
--- OUTSIDE RECORDS SUMMARY | ~2019-05-23 | XMS | Encounter Summary ---
Demographics + + + | Address | [address] | | | [place] [address] | + + + | Home Phone [...] [place], [place] | | | | | [address] | | + + + + + [...] | | | 2013 | Event | [facility] | [address] | | | | | Admitting Desk | Lesly Gutiérrez [facility] | | | | | [facility] on the | [place] [address] | | | | | floor [address] | [phone] | | | | | [address] | | | | | | [place], [place] | | | | | | [address] | | | +--------+ + + + [...] | | | | | [place], [place] | | | | | | [address] | | | | | | [phone] | | | | | | | [...]
--- OUTSIDE RECORDS SUMMARY | ~2019-05-23 | XMS | Encounter Summary ---
Demographics + + + | Address | [address] | | | [place] [address] | + + + | Home Phone [...] [place], [place] | | | | | [address] | | + + + + + | Ellie Vang | ECON | Unknown | | + + + + + Care Team Providers + +------+ + | Care Roller Setter Name | Role | Phone | [...] Lesly | | | | | Mailcode: [address] | [place], [place] | | | | | [facility] and | [address] | | | | | [facility] 2 | [phone] | | | | | [place], [place] | | | | | | [address] | | | | | | [phone] | | | +--------+ + + + [...] [place] | | | | | | [address] | | | | | | [phone] | | | | | | | | +--------+ + + + + documented as of this encounter Visit Diagnoses Not on filedocumented in this encounter"
--- OUTSIDE RECORDS SUMMARY | ~2019-05-23 | XMS | Encounter Summary ---
Demographics + + + | Address | [address] | | | [place] [address] | + + + | Home Phone [...] [place], [place] | | | | | [address] | | + + + + + | Ellie Vang | ECON | Unknown | | + + + + + Care Team Providers + +------+ + | Care Mental Health Associate Name | Role | Phone [...] Center at [facility] [address] | PILE DRIVING SUPERINTENDENT [address] | | | | | [address] [place] | [facility] [address] | | | | | Mailcode: Center | [place], [place] | | | | | [facility] and | [address] | | | | | [facility] 2 | [phone] | | | | | [place], [place] | | | | | | [address] | | | | | | [phone] | | | +--------+ + + + [...] [place] | | | | | | [address] | | | | | | [phone] | | | | | | | | +--------+ + + + + documented as of this encounter Visit Diagnoses Not on filedocumented in this encounter"
--- OUTSIDE RECORDS SUMMARY | ~2019-05-23 | XMS | Encounter Summary ---
Demographics + + + | Address | [address] | | | [place] [address] | + + + | Home Phone [...] [place], [place] | | | | | [address] | | + + + + + | Ellie Vang | ECON | Unknown | | + + + + + Care Team Providers + +------+ + | Care Paper Wood Cutter Name | Role | Phone | [...] | | | | | | [place] [address] | | | +--------+ + + + [...] | | 2019 | Visit | | [address] | | | | | | [place] [facility] [place] | | | | | | [address] | | | | | | [phone] | | | | | | | | +--------+ + + + + documented as of this encounter Visit Diagnoses Not on filedocumented in this encounter"
--- OUTSIDE RECORDS SUMMARY | ~2019-05-23 | XMS | Encounter Summary ---
Demographics + + + | Address | [address] | | | [place] [address] | + + + | Home Phone [...] [place], [place] | | | | | [address] | | + + + + + | Ellie Vang | ECON | Unknown | | + + + + + Care Team Providers + +------+ + | Care Talent Acquisition Associate Name | Role | Phone | + +------+ + | Fadi Goodrich DO | PCP | | + +------+ + Encounter Details +--------+ + + + + | Date | Type | Department | Care Team | Description | +--------+ + + + + | 02/13/ | Telephone | Cardiology | Randell Franks, | | | 2016 | | Preventive at [facility] | MD [address] | | | | | [address] | Ave [place], [place] | | | | | Mailcode: [facility] | [address] | | | | | [facility] | [phone] | | | | | and Healing, | | | | | | [address] | | | | | | [facility] [place] | | | | | | [address] | | | | | | [phone] | | | +--------+ + + + [...] | | | | [place] | | | | | | [address] | | | | | | [phone] | | | | | | | | +--------+ + + + + documented as of this encounter Visit Diagnoses Not on filedocumented in this encounter"
--- OUTSIDE RECORDS SUMMARY | ~2019-05-23 | XMS | Encounter Summary ---
Demographics + + + | Address | [address] | | | [place] [address] | + + + | Home Phone [...] [place], [place] | | | | | [address] | | + + + + + | Ellie Vang | ECON | Unknown | | + + + + + Care Team Providers + +------+ + | Care Vender Name | Role | Phone | + [...] Visit | Medicine Clinic at | J, MEALS ON WHEELS DRIVER | (Primary Dx); | | | | [facility] | | Dysphagia, | | | | [address] | | unspecified type; | | | | Mail Code: OC8PM | | Hypertension, | | | | Center for [facility] | | unspecified type; | | | | and Healing, | | Hyperlipidemia, | | | | Building 2 | | unspecified | | | | [place], [place] | | hyperlipidemia type; | | | | [address] | | Diastolic | | | | [phone] | | congestive heart | | | [...] | | Endotracheal Tube; 7; Oral; | FILER AND SANDER | FILER AND SANDER | | | Cuffed; 06/23/18; 1542 [...] encounter Patient Instructions Patient Instructions Tiara Mckeon, MEALS ON WHEELS DRIVER - 06/16/2018 3:15 PM [facility] PREOPERATIVE INSTRUCTIONS Please consider having an [...] your procedure. Surgery check-in location: Admitting - [facility] Surgery Check in Time: The Preoperative [...] it is after office hours, call the [facility] impregnating machine operator at [phone] and ask them to page him or [...] weight loss and diuretic tx, follows with assistant professor of economics Hypothyroidism stabilized on hormone replacement Type 2 [...] renal failure no electrolyte abnormalities no dialysis Urology/Deputy Sheriff: Urologic Conditions: nephrolithiasis Endo: Diabetes: type 2 [...] sublingual Place under tongue once daily. CALCIUM CRB&FUT-Q5-QPW92-GENIS ORAL Take 2 tablets by mouth two [...] Dr. Andie Brian Incisional hernia repair 03/01/2015 [facility]/ Dr. Cantu. Primary fascial closure and scar excision Lap gastric byp, and nilesh-en-y gastroenterostomy w/ nilesh limb 150 cm or less 8 [facility] Family history reviewed [...] weight loss and diuretic tx, follows with assistant professor of economics. Appears comp ensated today. Hypothyroidism stabilized on hormone replacement. Take on DOS as usual Type 2 diabetes, well controlled with A1c 6.1 Thank you for the opportunity to contribute to this patient's care. HILDA Lagos [facility] PBB PREOPERATIVE MEDICINE CLINIC AT [facility] 4TH FLOOR [address] [facility] [address] I advised the patient regarding [...] | | | | | [place], [place] | | | | | | [address] | | | | | | [phone] | | | | | | | [...]
--- OUTSIDE RECORDS SUMMARY | ~2019-05-23 | XMS | Encounter Summary ---
Demographics + + + | Address | [address] | | | [place] [address] | + + + | Home Phone [...] [place], [place] | | | | | [address] | | + + + + + | Ellie Vang | ECON | Unknown | | + + + + + Care Team Providers + +------+ + | Care Mold Maker Plaster Name | Role | Phone | + +------+ + | Fadi Goodrich DO | PCP | | + +------+ + Encounter Details +--------+ + + + + | Date | Type | Department | Care Team | Description | +--------+ + + + + | 03/28/ | Abstract | Cardiology | Randell Franks, | | | 2014 | | Preventive at [facility] | MD [address] | | | | | [address] | Ave [place], [place] | | | | | Mailcode: CH9A | [address] | | | | | [facility] | [phone] | | | | | and Healing, | | | | | | Building [address] | | | | | | [place], [place] | | | | | | [address] | | | | | | [phone] | | | +--------+ + + + [...] [place] | | | | | | [address] | | | | | | [phone] | | | | | | | | +--------+ + + + + documented as of this encounter Visit Diagnoses Not on filedocumented in this encounter"
--- OUTSIDE RECORDS SUMMARY | ~2019-05-23 | XMS | Encounter Summary ---
Demographics + + + | Address | [address] | | | [place] [address] | + + + | Home Phone [...] [place], [place] | | | | | [address] | | + + + + + | Ellie Vang | ECON | Unknown | | + + + + + Care Team Providers + +------+ + | Care Anthropology Lecturer Name | Role | Phone | + [...] | | | | | | [facility] [address] | | | | | | [address] | | | | | | Physician's | | | | | | Pavilion | | | | | | [facility] | | | | | | [place], [place] | | | | | | [address] | | | | | | [phone] | | | +--------+ + + + [...] | | | | | [place], [place] | | | | | | [address] | | | | | | [phone] | | | | | | | | +--------+ + + + + documented as of this encounter Visit Diagnoses Not on filedocumented in this encounter"
--- OUTSIDE RECORDS SUMMARY | ~2019-05-23 | XMS | Encounter Summary ---
Demographics + + + | Address | [address] | | | [place] [address] | + + + | Home Phone [...] [place], [place] | | | | | [address] | | + + + + + | Ellie Vang | ECON | Unknown | | + + + + + Care Team Providers + +------+ + | Care Technical Adjuster Name | Role | Phone | + +------+ + | Fadi Goodrich DO | PCP | | + +------+ + Encounter Details +--------+ + + + + | Date | Type | Department | Care Team | Description | +--------+ + + + + | 06/07/ | Hospital | Radiology/Imaging | Ronna Clarke, | | | 2018 | Encounter | Lab at [facility] [address] | ACNP [address] | | | | | [address] [place] Mailcode: | [place], [place] | | | | | [facility] | [address] | | | | | Health and Healing, | [phone] | | | | | [address] | | | | | | Floor [place], [place] | | | | | | [address] | | | | | | [phone] | | | +--------+ + + + [...] | | 0 | | | | CRB&FSZ-B7-GGZ09-GEN | mouth two times | | | [...] | | 2019 | Visit | | [address] | | | | | | [place], [place] | | | | | | [address] | | | | | | [phone] | | | | | | | [...] + + + | EXAM: Esophagram with community outreach coordinator radiograph HISTORY: RYGB 03/01/2018, | [facility] | | vomiting/pain ever since COMPARISON: 04/27/2018 CT TECHNIQUE: | RADIOLOGY VOICE | | Photonics Technician radiograph was performed. Single contrast exam of the esophagus, | RECOGNITION 2 | | gastric pouch, and gastrojejunostomy in upright positioning. | | | Radiation dose reduction technique was maximized where appropriate | | | using pulsed fluoroscopy and fluoro-store images. Fluoro Time 57 | | | second(s) FINDINGS: Photonics Technician shows stone in the upper pole [...] Note | + + | Service Account, [employer] Res In Interface - 06/07/2018 11:18 AM PST EXAM: Esophagram | | with community outreach coordinator radiograph HISTORY: RYGB 03/01/2018, vomiting/pain ever since COMPARISON: | | 04/27/2018 CT TECHNIQUE: Photonics Technician radiograph was performed. Single contrast exam of the | | esophagus, gastric pouch, and gastrojejunostomy in upright positioning. Radiation dose | | reduction technique was maximized where appropriate using pulsed fluoroscopy and | | fluoro-store images. Fluoro Time 57 second(s) FINDINGS:Photonics Technician shows stone in the upper | [...] Diagnosis | + + | History of Frnady-en-Y gastric bypass Bariatric surgery status | + [...]
--- OUTSIDE RECORDS SUMMARY | ~2019-05-23 | XMS | Encounter Summary ---
Demographics + + + | Address | [address] | | | [place] [address] | + + + | Home Phone [...] [place], [place] | | | | | [address] | | + + + + + [...] | [facility] | | | with COOKER PIE FILLING | | hypertension | [address] | [address] | | | | | Right | [address] | [address] | | | | | heart | [place], [place] | Mailcode: | | | | | failure | [address] | Center for | | | | | ([facility]) Type | Phone: | Health and | | | | | 2 diabetes | [phone] | Healing, | | | | | mellitus | Fax: | Building 2 | | | | | without | [phone] | [place], [place] | | | | | complication | | [address] | | | | | , with | | Phone: | | | | | long-term | | | | | | | current use | | Fax: | | | | | of insulin | | [phone] | | | | | ([facility]) | | | | | [...] | | 2 diabetes | JEAN, | [place], [place] | | | | | mellitus | [place] [address] | [address] | | | | | without | Phone: | Phone: | | | | | complication | [phone] | [phone] | | | | | (HCC) | Fax: | Fax: | | | | | Procedures | [phone] | [phone] | | | | | AL EST [...] | 2017 | Visit | Preventive at [facility] | [address] | hypertension | | | | [address] | Ave [place], [place] | (Primary Dx); Right | | | | Mailcode: [facility] | [address] | heart failure (HCC); | | | | [facility] | [phone] | Type 2 diabetes | | | | and Healing, | | mellitus without | | | | Building 1 | | complication, with | | | | [place], [place] | | long-term current | | | | [address] | | use of insulin (HCC) | | | | [phone] | | | +--------+---------+ + + + [...] 81 mg by mouth once daily. CALCIUM CRB&FOZ-M4-LRL35-GENIS ORAL Take 2 tablets by mouth two [...] current facility-administered medications for this visit. S: Dyaln returns in follow-up of obesity and T2DM. [...] then she has worked closely with her [facility] doctor and has been been able [...] 12 CREATININE PLASMA (LAB) 0.79 EGFR - [place] >60 EGFR NON -[place] >60 GLUCOSE, PLASMA (LAB) 170 (H) CALCIUM, [...] | | | | | [place], [place] | | | | | | [address] | | | | | | [phone] | | | | | | | [...] [facility] | [address] | [place] [address] | | | LYDIA RANGEL | CLARENCE [...] + + + | [facility] | [address] | [place], [place] | | | SERVICES, LIPID | [address] | [address] | | + + + + + [...] + + | [facility] | [address] [facility] [address] | [place] [address] | | | SERVICES, SPECIAL | CLARENCE [...] + | [facility] | [address] | [place] [address] | | | SERVICES, CORE | [address] [...]
--- OUTSIDE RECORDS SUMMARY | ~2019-05-23 | XMS | Encounter Summary ---
Demographics + + + | Address | [address] | | | [place] [address] | + + + | Home Phone [...] [place], [place] | | | | | [address] | | + + + + + | Ellie Vang | ECON | Unknown | | + + + + + Care Team Providers + +------+ + | Care Pt Sitter Name | Role | Phone | [...] + + | 02/07/ | Hospital | [address] | [place], | | | 2014 - | Encounter | [address] | [address] | | | | | [place], [place] | [address] | | | 02/08/ | | [address] | [place], [place] | | | 2013 | | [phone] | [address] | | | | | | [phone] | | | | | | | [...] resident s note. PRADIP STARR MD [facility] [address] [place] [address] orrMaryam hill MD - 1:05 PM PDT [facility] DEPARTMENT OF SURGERY EMERGENCY GENERAL SURGERY Division [...] presented to the [facility] ED ([place], [place]) on 02/06/14, with a week hi story of RUQ abdominal pain that radiates to her back. There, she was found to have leukocyt osis and multiple tiny, mobile stones, + sonographic Peterson's sign on abdominal ultrasound, concerning for acute cholecystitis. She was givenIV antibiotics (cipro, flagyl) and pain med s, then transferred to [facility] by [facility] for further care. Ms. Romero endorsed [...] up with Trauma Emergency General Surgery at [facility] In 4 weeks. (follow up in 2-4 weeks ) Contact information [address] [facility] Mailcode: L223a Lionelyiarmen [address] [place] [address] Thank you for the [...] resident s note. PRADIP STARR MD [facility] [address] [place] [address] orrMaryam hill MD - 5:17 AM PDT [facility] DEPARTMENT OF SURGERY EMERGENCY GENERAL SURGERY Division [...] tolerated MARYAM RHODES MD PGY-1, General Surgery [phone] pager number [facility] A [address] [facility] [address] documented in this encoun ter Plan of [...] | | 2018 | Visit | | [address] | | | | | | [place], [place] | | | | | | [address] | | | | | | [phone] | | | | | | | [...] MARQUAM | [address] | [place], [place] | | | JUSTINE DAWN OF CARE | [address] | [address] | | | TESTS | | | [...] [facility] | [address] | [place], [place] | | | LÓPEZ POINT OF CARE | [address] | [address] | | | TESTS | | | [...] AMES | [address] | [place], [place] | | | JUSTINE DAWN OF [facility] | [address] | [address] | | | TESTS | | | [...] MARQUAM | [address] | [place], [place] | | | JUSTINE DAWN OF CARE | [address] | [address] | | | TESTS | | | [...] [facility] | [address] | [place] [address] | | | SERVICES, | [address] [...] | [facility] | [address] | [place] [address] | | | SERVICES, | [address] [...] MARQUAM | [address] | [place], [place] | | | LÓPEZ POINT OF CARE | [address] | [address] | | | TESTS | | | [...] CENTER LABORATORY | [address] | [place] [address] | | | SERVICES, CORE | [address] | | | + + + + + LIPASE, PLASMA (02/07/2014 6:32 AM PDT) + +--------+ + + + | Component | Value | Ref Range | Performed | Pathologist | | | | | At | Signature | + +--------+ + + + | LIPASE | 80 (L) | 152 - 353 U/L | [facility] | | | (LAB) | | | [...] [facility] | [address] | [place] [address] | | | SERVICES, CORE | PARK [...] [facility] | [address] | [place] [address] | | | CLAIRE, LYDIA | PARK [...] FOR WOMEN | [address] | [place] [address] | | | SERVICES, CORE | CLARENCE [...] | [facility] | [address] | [place] [address] | | | SERVICES, CORE | PARK [...] MARQUAM | [address] | [place], [place] | | | JUSTINE DAWN OF CARE | [address] | [address] | | | TESTS | | | [...] pattern. | | | | | | Gasoline Engine Inspector | | | | | | sections [...] | + + + + + | [facility] | [address] | [place] [address] | | | PATHOLOGY | [address] [...]
--- OUTSIDE RECORDS SUMMARY | ~2019-05-23 | XMS | Encounter Summary ---
Demographics + + + | Address | [address] | | | [place] [address] | + + + | Home Phone [...] [place], [place] | | | | | [address] | | + + + + + | Ellie Vang | ECON | Unknown | | + + + + + Care Team Providers + +------+ + | Care Pv Installer Tech Name | Role | Phone | [...] | | Surgery | Diagnoses | | [place], | | | | | Ventral | [place], | MD Jones | | | | | hernia | MD Jones | [address] | | | | | without | [address] | [address] [place] | | | | | obstruction | [address] | Rd [place], | | | | | or gangrene | Rd | [place] | | | | | Procedures | [place], [place] | [address] | | | | | REQUEST TO | [address] | Phone: | | | | | SURGERY | Phone: | [phone] | | | | | POPPED CORN OVEN ATTENDANT | [phone] | Fax: | | | | | | Fax: | [phone] | | | | | | [phone] | | +--------+--------+ + + + + [...] 2019 | Visit | Center at [address] | MD Jones [address] | without obstruction | | | | [address] | [facility] [address] | or gangrene (Primary | | | | Mailcode: Center | [place], [place] | Dx) | | | | for Health and | [address] | | | | | Healing, Building [address] | [phone] | | | | | [place], [place] | | | | | | [address] | | | | | | [phone] | | | +--------+---------+ + + + [...] (1?2 cup) 6.5 Avocado 1?2 fruit 2.1 Redgranite sprouts, cooked 125 mL (1?2 cup) 2.0 Figs, dried 60 mL (1?4 cup) 1.9 [place]den 1 medium 1.8 Sweet Potato, cooked, without [...] 1.3 Eggplant 125 mL (1?2 cup) 1.3 [place], with skin 1 medium 1.0-1.3 Peas, green, cooked 125 mL (1?2 cup) 0.8-1.3 Carrot, cooked John 125 mL (1?2 cup) 1?2 fruit 1.1-1.2 0.7-1.1 Grapefruit 1?2 fruit 0.7-1.1 Prunes, dried 3 1.1 [place], with skin 2 fruits 1.1 Apricots, dried [...] Bread, rye 35 g (1 slice) 0.6-1.0 Kenedy bread crackers 3 crackers 0.9 Raisin bran [...] of Soluble Fiber [email or web address] PATIENT SURGERY INFORMATION [facility] General Surgery Office Toll-free: ext [phone] Surgery Date: Monday, July 08, [address]: [facility] Procedure: recurrent ventral hernia repair Surgeon Name: Dr. Jones Tiwari DIRECTIONS FOR SURGERY TO PREPARE FOR SURGERY - If you are able, walk every day for at least 30 minutes. - Follow up: Phone pre-operative medicine clinic call to be completed [facility]. This call appointment will be scheduled with you by a drop forge hand. You will receive a ca ll within [...] ease call the General Surgery Office at [phone] for [id number]. Check-in on the day of surgery is at the Admitting Department located on the 9th floor of [facility]. DIET Nothing to eat or [...] contact our office . Products Containing Aspirin Yuki-[place], Anacin, Anexsia with Codeine, Andynos, Aspirin, Aspirin suppositories, Ascrip tin, Aspergum, Axotal, B-A-C, Baby Aspirin, Lucila, BC Powder, Bexophene, Buffaprin, Bufferin , Buffinol, Cama-Arthritis Strength, Congespirin, [place], Coricidin, Damason, Darvon, Dristan, Kalani-Gesic, Digel, Dolprin #3 Tablets, Donatab, Doxaphene, Duragesic, Easprin, Ecotrin, Emag rin Forte, Emiprin, Emprazil, Equagesic, Equazine M, Excedrin, Fiogesic, Fiorgen PH, Fiorice t, Fiorinal, 4-Way Cold Tablet, Gemnisyn, Indocin, Liquprin, Lortab ASA, Magnaprin, Marnal, Meprobamate, Midol, Momentum, Norgesic, Boulevard, Orphengesic, Pabalate, P-A-C, Percodan, Pre salin, Robaxasil, Roxiprin, Saleto, Salocol, SK-65 Compound, Sine-Aid, Sine-Off, [place], Supac, Talwin Compound, Trigesic, Tolectin, Traiminicin, Vanquish, ZORprin, Zomax Products Containing Ibuprofen Advil, Aleve, Haltran, Medipren, Midol, Motrin, Naproxyn, Nuprin, Rufen Herbal Medications Ephedra: discontinue 24 hours before surgery Garlic: discontinue 7 days prior to surgery Ginkgo: discontinue 36 hours prior to surgery Ginseng: discontinue 7 days prior to surgery Kava: discontinue 24 hours prior to surgery [place] s Wort: discontinue 5 days prior to surgery Valerian: discontinue several weeks prior to surgery Other Products Which May Promote Bleeding Vitamin E, Gingko Biloba, Marine Fatty Acids, Monroe-3 Fish Oil Supplement PRE-OP BATHING/SHOWER INSTRUCTIONS with [facility] Bathe or shower the evening before and [...] of tissue. Check out the free [place] Quit Line - The Quit Line is open 24 hours a day, seven days a we ek. The Quit Line is a telephone and web-based counseling service to help [place]ians quit us ing tobacco and nicotine products. .QUIT.NOW ( ) or www.quitnow.net/[place] PARKING Parking at the Hospital for patients and visitors is available in the [facility] Parking s tructure located across from the emergency department. Patient parking is available on level 1 and 3. Metered parking is available on the top level. Parking at [facility] is available in the building's parking structure. For additional parking options visit [email or web address]. TRANSPORTATION You will require transportation home on the day of discharge. Pain medications and physical activity restrictions may limit your ability to drive safely. CANCELLING YOUR PROCEDURE Please notify the general surgery office at [phone] as soon as possible should you nee [...] plans to see an ENT and a crank hand for her symptoms in the near future. [...] 8 [facility] Past Medical History: Diagnosis Date [...] file Gets together: Not on file Attends episcopalian service: Not on file Active member of club or organization: Not on file Attends meetings of clubs or organizations: Not on file Relationship status: Not on file Other Topics Concern Not on file Social History Narrative Updated 11/09/15 She lives in [place] with her mother and her sister (also her caregiver) lives in an apa rtment/duplex below. She has 2 grandchildren (age 4 and 7) who live with her daughter and son-in-law Her boyfriend lives in [place] HFpEF, DM2, HTN, Sleep Apnea (unable to [...] here and refer her to our digital imaging specialist who also has expertise in physical [...] daily. BELBUCA 600 mcg buccal film CALCIUM CRB&RTW-A6-OGI87-GENIS ORAL Take 2 tablets by mouth two [...] morbid obesity s/p laparoscopic anteocolic RYGB (03/01/2018); [facility] e this operation, she has lost [...] by Gadiel Yi . JONES TIWARI MD [facility] AT [facility] [address] [facility] Mailcode: [place] [address] I spent 31 minutes [...] | | | | | [place], [place] | | | | | | [address] | | | | | | [phone] | | | | | | | | +--------+ + + + + documented as of this encounter Visit Diagnoses + + | Diagnosis | + + | Ventral hernia without obstruction or gangrene - Primary Ventral hernia, unspecified, | | without mention of obstruction or gangrene | + + documented in this encounter
--- OUTSIDE RECORDS SUMMARY | ~2019-05-23 | XMS | Encounter Summary ---
Demographics + + + | Address | [address] | | | [place] [address] | + + + | Home Phone [...] [place], [place] | | | | | [address] | | + + + + + [...] NISH EN | | 2017 | | [facility] | MD [address] | Y GASTRIC BYPASS | | | | Admitting Desk | [place], [place] | | | | | Located on the | [address] | | | | | floor [address] [facility] | [phone] | | | | | Ryan Grace | | | | | | [place], [place] | | | | | | [address] | | | +--------+---------+ + + + [...] Gavin ACNP - 03/03/2018 9:49 AM PDT COUNT INCLUDES THE [facility] & [facility] RED SURGERY INPATIENT DISCHARGE SUMMARY [...] at minimum. 5. Follow with PCP for Director Internal Communications within 1 - 2 weeks of discharge [...] mg by mouth two times daily. CALCIUM CRB&VOE-X3-[id number]-GENIS ORAL Take 2 tablets by mouth two [...] yogurt or kefir. Zaria's Yogurt or Kefir, Systems Maintenance Servicesfield Yogurt, and thereNown i Amharic Yogurt are common brands with beneficial probiotics. [...] are available over the counter at most [facility]. Nausea/Vomiting/Difficulty Swallowing Nausea/Vomiting/Difficulty swallowing: Could [...] hours per your instructions. Some medications, like Kenna, have Tylenol in it. Make sure you [...] (PCP) as this clinic does not [facility]. When to [...] hours by calling the surgery office at [phone]. - After hours, weekends and holidays, you may call the hospital screener and blender operator at [phone] an d have the plant operator control room operator Red Surgery Team paged. OTHER DISCHARGE [...] at minimum. 5. Follow with PCP for Director Internal Communications within 1 - 2 weeks of discharge [...] Department Dept Phone Center 03/10/2018 1:30 PM [facility] at [facility] 6th Floor [phone] FO OD AND NUT 03/10/2018 3:05 PM Ronna Clarke Digestive Rust at [facility] 6th Floor [phone] [facility] 04/01/2018 10:30 AM [facility] at [facility] 6th Floor [phone] FO OD AND NUT 04/01/2018 11:00 AM Ion Castanon Digestive [facility] at [facility] 6th Floor [phone] [facility] 05/27/2018 2:30 PM [facility] at [facility] 6th Floor [phone] FO OD AND NUT 05/27/2018 3:05 PM [facility] 6th Floor [phone] [facility] 05/27/2018 4:30 PM Demar Cueva [facility] at [facility] 15th Floor [phone] Comprehensiv 06/04/2018 10:35 AM Randell Franks Cardiology Preventive at [facility] [phone] Cardiology Discharging Physician: KAIN Agee Attending Physician: Ion Castanon MD [facility] Red Surgery Pager# [phone] 9:50 AM 03/03/2018 documented in this enco [...] | | 0 | | | | CRB&PKQ-[id number]-PFU13-GEN | mouth two times | | | [...] date of discharge 03/03/18 PARTHA Calixto MS3 [facility] [employer] [...] for care ride home (pt lives in [place]) Demarcus Alas M.D. General Surgery Resident PGY-1 Pager: [phone] Ion Ferrari MD - 10:00 AM PDTI [...] | | | | | [place], [place] | | | | | | [address] | | | | | | [phone] | | | | | | | [...] | | PDT | over, adult ([facility]) | results section. | + +--------+ + + + | CAPILLARY BLOOD | Routin | 03/03/2018 | Morbid obesity | Results for this | | GLUCOSE (NO CHG), | e | 7:54 AM | with BMI of 70 and | procedure are in the | | POC | | PDT | over, adult ([facility]) | results section. | + +--------+ + + + | CAPILLARY BLOOD | Routin | 03/03/2018 | Morbid obesity | Results for this | | GLUCOSE (NO CHG), | e | 6:28 AM | with BMI of 70 and | procedure are in the | | POC | | PDT | over, adult ([facility]) | results section. | + +--------+ + + + | CAPILLARY BLOOD | Routin | 03/02/2018 | Morbid obesity | Results for this | | GLUCOSE (NO CHG), | e | 9:17 PM | with BMI of 70 and | procedure are in the | | POC | | PDT | over, adult ([facility]) | results section. | + +--------+ + + + | CAPILLARY BLOOD | Routin | 03/02/2018 | Morbid obesity | Results for this | | GLUCOSE (NO CHG), | e | 6:50 PM | with BMI of 70 and | procedure are in the | | POC | | PDT | over, adult ([facility]) | results section. | + +--------+ + + + | CAPILLARY BLOOD | Routin | 03/02/2018 | Morbid obesity | Results for this | | GLUCOSE (NO CHG), | e | 3:46 PM | with BMI of 70 and | procedure are in the | | POC | | PDT | over, adult ([facility]) | results section. | + +--------+ + + + | CAPILLARY BLOOD | Routin | 03/02/2018 | Morbid obesity | Results for this | | GLUCOSE (NO CHG), | e | 2:36 PM | with BMI of 70 and | procedure are in the | | POC | | PDT | over, adult ([facility]) | results section. | + +--------+ + + + | CAPILLARY BLOOD | Routin | 03/02/2018 | Morbid obesity | Results for this | | GLUCOSE (NO CHG), | e | 1:33 PM | with BMI of 70 and | procedure are in the | | POC | | PDT | over, adult ([facility]) | results section. | + +--------+ + + + | CAPILLARY BLOOD | Routin | 03/02/2018 | Morbid obesity | Results for this | | GLUCOSE (NO CHG), | e | 11:36 AM | with BMI of 70 and | procedure are in the | | POC | | PDT | over, adult ([facility]) | results section. | + +--------+ + + + | CAPILLARY BLOOD | Routin | 03/02/2018 | Morbid obesity | Results for this | | GLUCOSE (NO CHG), | e | 10:32 AM | with BMI of 70 and | procedure are in the | | POC | | PDT | over, adult ([facility]) | results section. | + +--------+ + + + | CAPILLARY BLOOD | Routin | 03/02/2018 | Morbid obesity | Results for this | | GLUCOSE (NO CHG), | e | 9:23 AM | with BMI of 70 and | procedure are in the | | POC | | PDT | over, adult ([facility]) | results section. | + +--------+ + + + | CAPILLARY BLOOD | Routin | 03/02/2018 | Morbid obesity | Results for this | | GLUCOSE (NO CHG), | e | 8:36 AM | with BMI of 70 and | procedure are in the | | POC | | PDT | over, adult ([facility]) | results section. | + +--------+ + + + | CAPILLARY BLOOD | Routin | 03/02/2018 | Morbid obesity | Results for this | | GLUCOSE (NO CHG), | e | 7:35 AM | with BMI of 70 and | procedure are in the | | POC | | PDT | over, adult ([facility]) | results section. | + +--------+ + + + | CAPILLARY BLOOD | Routin | 03/02/2018 | Morbid obesity | Results for this | | GLUCOSE (NO CHG), | e | 6:33 AM | with BMI of 70 and | procedure are in the | | POC | | PDT | over, adult ([facility]) | results section. | + +--------+ + + + | CAPILLARY BLOOD | Routin | 03/02/2018 | Morbid obesity | Results for this | | GLUCOSE (NO CHG), | e | 5:28 AM | with BMI of 70 and | procedure are in the | | POC | | PDT | over, adult ([facility]) | results section. | + +--------+ + + + | CAPILLARY BLOOD | Routin | 03/02/2018 | Morbid obesity | Results for this | | GLUCOSE (NO CHG), | e | 4:36 AM | with BMI of 70 and | procedure are in the | | POC | | PDT | over, adult ([facility]) | results section. | + +--------+ + + + | CAPILLARY BLOOD | Routin | 03/02/2018 | Morbid obesity | Results for this | | GLUCOSE (NO CHG), | e | 2:46 AM | with BMI of 70 and | procedure are in the | | POC | | PDT | over, adult ([facility]) | results section. | + +--------+ + + + | CAPILLARY BLOOD | Routin | 03/02/2018 | Morbid obesity | Results for this | | GLUCOSE (NO CHG), | e | 12:32 AM | with BMI of 70 and | procedure are in the | | POC | | PDT | over, adult ([facility]) | results section. | + +--------+ + + + | CAPILLARY BLOOD | Routin | 03/01/2018 | Morbid obesity | Results for this | | GLUCOSE (NO CHG), | e | 10:31 PM | with BMI of 70 and | procedure are in the | | POC | | PDT | over, adult ([facility]) | results section. | + +--------+ + + + | CAPILLARY BLOOD | Routin | 03/01/2018 | Morbid obesity | Results for this | | GLUCOSE (NO CHG), | e | 8:21 PM | with BMI of 70 and | procedure are in the | | POC | | PDT | over, adult ([facility]) | results section. | + [...] | | PDT | over, adult ([facility]) | results section. | + +--------+ + + + | CAPILLARY BLOOD | Routin | 03/01/2018 | Morbid obesity | Results for this | | GLUCOSE (NO CHG), | e | 3:31 PM | with BMI of 70 and | procedure are in the | | POC | | PDT | over, adult ([facility]) | results section. | + +--------+ + + + | CAPILLARY BLOOD | Routin | 03/01/2018 | Morbid obesity | Results for this | | GLUCOSE (NO CHG), | e | 3:29 PM | with BMI of 70 and | procedure are in the | | POC | | PDT | over, adult ([facility]) | results section. | + +--------+ + + + | CAPILLARY BLOOD | Routin | 03/01/2018 | Morbid obesity | Results for this | | GLUCOSE (NO CHG), | e | 2:30 PM | with BMI of 70 and | procedure are in the | | POC | | PDT | over, adult ([facility]) | results section. | + +--------+ + + + | CAPILLARY BLOOD | Routin | 03/01/2018 | Morbid obesity | Results for this | | GLUCOSE (NO CHG), | e | 1:35 PM | with BMI of 70 and | procedure are in the | | POC | | PDT | over, adult ([facility]) | results section. | + +--------+ + + + | CAPILLARY BLOOD | Routin | 03/01/2018 | Morbid obesity | Results for this | | GLUCOSE (NO CHG), | e | 12:16 PM | with BMI of 70 and | procedure are in the | | POC | | PDT | over, adult ([facility]) | results section. | + [...] | | PDT | over, adult ([facility]) | results section. | + +--------+ + + + | LAPAROSCOPIC | Electi | 03/01/2018 | Morbid obesity | | | NISH-EN-Y GASTRIC | ve | 8:31 AM | ([facility]) | | | BYPASS | [...] MARPATAM | [address] | [place], [place] | | | [facility] | [address] | [address] | | | TESTS | | | [...] - MARQUAM | [address] | [place], [place] | | | [facility] | [address] | [address] | | | TESTS | | | [...] AMES | [address] | [place], [place] | | | [facility] | [address] | [address] | | | TESTS | | | [...] MARQUAM | [address] | [place], [place] | | | [facility] | [address] | [address] | | | TESTS | | | [...] - MARQUAM | [address] | [place], [place] | | | [facility] | [address] | [address] | | | TESTS | | | [...] + + + | NKECHI AMES | [address] | [place], [place] | | | [facility] [facility] | [address] | [address] | | | TESTS | | | [...] MARQUAM | [address] | [place], [place] | | | [facility] | [address] | [address] | | | TESTS | | | [...] - MARQUAM | [address] | [place], [place] | | | [facility] | [address] | [address] | | | TESTS | | | [...] + + + | NKECHI AMES | [address] | [place], [place] | | | [facility] [facility] | [address] | [address] | | | TESTS | | | [...] MARQUAM | [address] | [place], [place] | | | [facility] | [address] | [address] | | | TESTS | | | [...] - MARQUAM | [address] | [place], [place] | | | [facility] | [address] | [address] | | | TESTS | | | [...] AMES | [address] | [place], [place] | | | [facility] [facility] [facility] | [address] | [address] | | | TESTS | | | [...] MARQUAM | [address] | [place], [place] | | | [facility] | [address] | [address] | | | TESTS | | | [...] KWAKU | [address] | [place], [place] | | | [facility] | [address] | [address] | | | TESTS | | | [...] AMES | [address] | [place], [place] | | | [facility] | [address] | [address] | | | TESTS | | | [...] KWAKU | [address] | [place], [place] | | | [facility] | [address] | [address] | | | TESTS | | | [...] - KWAKU | [address] | [place], [place] | | | [facility] | [facility] | [address] | | | TESTS | | | [...] AMES | [address] | [place], [place] | | | [facility] | [address] | [address] | | | TESTS | | | [...] KWAKU | [address] | [place], [place] | | | [facility] | [address] | [address] | | | TESTS | | | [...] - KWAKU | [address] | [place], [place] | | | [facility] | [facility] | [address] | | | TESTS | | | [...] AMES | [address] | [place], [place] | | | [facility] | [address] | [address] | | | TESTS | | | [...] MARQUAM | [address] | [place], [place] | | | [facility] | [address] | [address] | | | TESTS | | | [...] KWAKU | [address] | [place], [place] | | | [facility] | [facility] | [address] | | | TESTS | | | [...] AMES | [address] | [place], [place] | | | [facility] | [facility] | [address] | | | TESTS | | | [...] MARQUAM | [address] | [place], [place] | | | [facility] | [address] | [address] | | | TESTS | | | [...] NKECHI AMES | [address] | [place], [place] | | | [facility] | [address] | [address] | | | TESTS | | | | + + + + + EGD (ESOPHAGOGASTRODUODENOSCOPY) (03/01/2018 11:21 AM PDT) + + + | Narrative | Performed At | + + + | Ion Castanon MD 03/01/2018 12:25 PM Date of Procedure: | | | 03/01/18 Primary Surgeon: Ion Castanon MD Co Surgeon or | | | community program assistant: Eldon Gonzalez MD, Chief Resident Alexx [...] The jejunum was divided with 60 mm [place] stapler with white | | | load [...] created in each limb and a 60mm [place] stapler | | | with white load was fired to create a [id number]-[id number] | | | jejunojejunostomy. The anastamosis was confirmed to be widely | | | patent and hemostatic. The common enterotomy was closed by placing | | | 2 stay sutures along the enterotomy for retraction and firing an | | | [place] 60mm stapler with white load across the [...] | | | was entered. The 60mm [place] stapler with blue load was placed | [...] blue load of the 60mm stapler. The [place] was then fired | | | longitudinally towards the angle of His to create the gastric pouch, | | | leaving the gastrotomy from foreign body removal, on the pouch. | | | Dissection was performed retrogastric to connect posterior and | | | anterior dissection planes and ensure adequate fundus exclusion. | | | Additional fires of the [place] stapler were performed with blue | | [...] with | | | 5 mm clip advertising rep. A 25mm Orvil was passed transorally by [...] | nish limb was identified with the laondra drain. The jejunal | | | staple [...] was closed with 60mm | | | [place] stapler with a white load. Medially and [...] was present | | | as my community program assistant for the entire procedure, given the technically | | | challenging nature of this procedure. She assisted in all critical | | | steps of the procedure. Dr. Gonzalez was present for endoscopy at the | | | end of the procedure. Ion Castanon MD, FACS, [facility] | | | Bariatric Surgery | [...] MD Co Surgeon or | | | community program assistant: Eldon Gonzalez MD, Chief Resident Alexx [...] The jejunum was divided with 60 mm [place] stapler with white | | | load [...] created in each limb and a 60mm [place] stapler | | | with white load was fired to create a xwsg-hq-esas | | | jejunojejunostomy. The anastamosis was confirmed to be widely | | | patent and hemostatic. The common enterotomy was closed by placing | | | 2 stay sutures along the enterotomy for retraction and firing an | | | [place] 60mm stapler with white load across the [...] | | | was entered. The 60mm [place] stapler with blue load was placed | [...] blue load of the 60mm stapler. The [place] was then fired | | | longitudinally towards the angle of His to create the gastric pouch, | | | leaving the gastrotomy from foreign body removal, on the pouch. | | | Dissection was performed retrogastric to connect posterior and | | | anterior dissection planes and ensure adequate fundus exclusion. | | | Additional fires of the [place] stapler were performed with blue | | [...] with | | | 5 mm clip advertising rep. A 25mm Orvil was passed transorally by [...] was closed with 60mm | | | [place] stapler with a white load. Medially and [...] was present | | | as my community program assistant for the entire procedure, given the technically | | | challenging nature of this procedure. She assisted in all critical | | | steps of the procedure. Dr. Gonzalez was present for endoscopy at the | | | end of the procedure. Ion Castanon MD, FACS, [facility] | | | Bariatric Surgery | [...] NKECHI AMES | [address] | [place], [place] | | | [facility] | [address] | [address] | | | TESTS | | | [...]
--- OUTSIDE RECORDS SUMMARY | ~2019-05-23 | XMS | Encounter Summary ---
Demographics + + + | Address | [address] | | | [place] [address] | + + + | Home Phone [...] + | Katalina Padilla | ECON | [address] | | | | | [place], [place] | | | | | [address] | | + + + + + | Ellie Vang | ECON | Unknown | | + + + + + Care Team Providers + +------+ + | Care Animal Cop Name | Role | Phone | + +------+ + | Fadi Goodrich DO | PCP | | + +------+ + Encounter Details +--------+ + + + + | Date | Type | Department | Care Team | Description | +--------+ + + + + | 07/18/ | Abstract | Digestive Health | Shereen Georges, | | | 2012 | | Center at [facility] [address] | ACNP [address] | | | | | [address] | Ave [place], [place] | | | | | Mailcode: [place] | [address] | | | | | for Health and | | | | | | [facility] | | | | | | [facility] [place] | | | | | | [address] | | | | | | | [...] | | 2019 | Visit | | [address] | | | | | | [place], [place] | | | | | | [address] | | | | | | [phone] | | | | | | | | +--------+ + + + + documented as of this encounter Visit Diagnoses Not on filedocumented in this encounter"
--- OUTSIDE RECORDS SUMMARY | ~2019-05-23 | XMS | Encounter Summary ---
Demographics + + + | Address | [address] | | | [place] [address] | + + + | Home Phone [...] [place], [place] | | | | | [address] | | + + + + + | Ellie Vang | ECON | Unknown | | + + + + + Care Team Providers + +------+ + | Care Value Analyst Name | Role | Phone | [...] | | 2016 | | Preventive at [facility] | [address] | ([place]) | | | | [address] | Ave [place], [place] | | | | | Mailcode: [place] | [address] | | | | | [facility] | [phone] | | | | | and Erick, | | | | | | [address] | | | | | | [place], [place] | | | | | | [address] | | | | | | [phone] | | | +--------+ + + + [...] [place] | | | | | | [address] | | | | | | [phone] | | | | | | | | +--------+ + + + + documented as of this encounter Visit Diagnoses Not on filedocumented in this encounter"
--- OUTSIDE RECORDS SUMMARY | ~2019-05-23 | XMS | Encounter Summary ---
Demographics + + + | Address | [address] | | | [place] [address] | + + + | Home Phone [...] [place], [place] | | | | | [address] | | + + + + + [...] | 05/27/ | Lab | Laboratory at [facility] | | History of Frandy-en-Y | | 2017 | | [address] | | gastric bypass; | | | | [place], [place] | | Ventral hernia | | | | [address] | | without obstruction | | | | [phone] | | or gangrene; Mixed | | [...] | | 2018 | Visit | | [address] | | | | | | [place], [place] | | | | | | [address] | | | | | | [phone] | | | | | | | [...] | + + + + + | [facility] | [address] | [place] [address] | | | SERVICES, CORE | CLARENCE [...] + + | [facility] | [address] [facility] | [place] [address] | | | SERVICES, CORE | PARK [...] | + + + + + | [facility] | [address] | [place] [address] | | | SERVICES, SPECIAL | CLARENCE [...] B: | | | | | | [employer] | | | | | | [employer],[address] | | | | | | [address] [place], [place] | | | | | | [address] | | | | | | [phone].[employer]. | | | | | | comIsmael [...] [facility] | [address] | [place], [place] | | | [facility] | | [address] | | + + + + + [...] + + + | [facility] | [address] [facility] | [place] [address] | | | CLAIRE, LYDIA | CLARENCE [...] | + + + + + | [facility] | [address] | [place] [address] | | | SERVICES, CORE | CLARENCE [...] [facility] | [address] | [place] [address] | | | SERVICES, CORE | CLARENCE [...] | + + + + + | [facility] | [address] | [place] [address] | | | SERVICES, CORE | CLARENCE [...] [facility] | [address] | [place] [address] | | | SERVICES, CORE | PARK [...] | + + + + + | [facility] | [address] | [place] [address] | | | SERVICES, CORE | PARK [...]
--- OUTSIDE RECORDS SUMMARY | ~2019-05-23 | XMS | Encounter Summary ---
Demographics + + + | Address | [address] | | | [place] [address] | + + + | Home Phone [...] [place], [place] | | | | | [address] | | + + + + + | Ellie Vang | ECON | Unknown | | + + + + + Care Team Providers + +------+ + | Care Brush Hand Name | Role | Phone | [...] | | | | | [facility] | | | | | | [place], [place] | | | | | | [address] | | | | | | [phone] | | | +--------+ + + + [...] | | | | | [place], [place] | | | | | | [address] | | | | | | [phone] | | | | | | | [...] [address] | | | | | | [address] | | | | | | | | | | | | [place] | | | | | | [address] | | | | | | DrRenee [...] | | | | artery. A 5.5 Moroccan | | | | | | Ozzy [...] + +---------+ + + | [facility] DEPARTMENT OF | | | | | RADIOLOGY | | | | + +---------+ + + documented in this encounter Visit Diagnoses Not on filedocumented in this encounter
--- OUTSIDE RECORDS SUMMARY | ~2019-05-23 | XMS | Encounter Summary ---
Demographics + + + | Address | [address] | | | [place] [address] | + + + | Home Phone [...] [place], [place] | | | | | [address] | | + + + + + | Ellie Vang | ECON | Unknown | | + + + + + Care Team Providers + +------+ + | Care Vp Genetic Name | Role | Phone | + [...] the | | | | | | [facility] [address] [facility] | | | | | | [facility] | | | | | | [place], [place] | | | | | | [address] | | | +--------+ + + + [...] | | 2019 | Visit | | [address] | | | | | | [place] [facility] [place] | | | | | | [address] | | | | | | [phone] | | | | | | | | +--------+ + + + + documented as of this encounter Visit Diagnoses Not on filedocumented in this encounter"
--- OUTSIDE RECORDS SUMMARY | ~2019-05-23 | XMS | Encounter Summary ---
Demographics + + + | Address | [address] | | | [place] [address] | + + + | Home Phone [...] + | Katalina Padilla | ECON | [address] | | | | | [place], [place] | | | | | [address] | | + + + + + | Ellie Vang | ECON | Unknown | | + + + + + Care Team Providers + +------+ + | Care Child Care Group Leader Name | Role | Phone [...] | | 2015 | | Preventive at [facility] | [address] | (phentermine 37.5 mg | | | | [address] | [place] [facility] [place] | ) | | | | Mailcode: LATRELL | [address] | | | | | [facility] | [phone] | | | | | and [place], | | | | | | [address] | | | | | | [place], [place] | | | | | | [address] | | | | | | [phone] | | | +--------+--------+ + + + [...] | | | | | [place] | | | | | | [address] | | | | | | [phone] | | | | | | | | +--------+ + + + + documented as of this encounter Visit Diagnoses Not on filedocumented in this encounter"
--- OUTSIDE RECORDS SUMMARY | ~2019-05-23 | XMS | Encounter Summary ---
Demographics + + + | Address | [address] | | | [place] [address] | + + + | Home Phone [...] [place], [place] | | | | | [address] | | + + + + + | Ellie Vang | ECON | Unknown | | + + + + + Care Team Providers + +------+ + | Care Seismology Teacher Name | Role | Phone | [...] [facility] [address] | [place], [place] | | | | | [place] Mailcode: | [address] | | | | | [facility] | [phone] | | | | | and [place], | | | | | | [address] | | | | | | [place], [place] | | | | | | [address] | | | | | | [phone] | | | +--------+ + + + [...] Discharge Instructions Instructions Keerthi Bernard RN - 04/07/2019[place] Care Instructions after EGD (Upper Endos copy) [...] hours or on weekends and holiday Hospital Perfusionist toll free [phone] and have the GI doctor transfer station attendant paged. The provider who performed your procedure: [...] | | 0 | | | | CRB&LHT-F0-VTH43-GEN | mouth two times | | | [...] from the original. PRE PROCEDURE NOTE: MR# [id number] Subjective: Elzbieta Cristina is a 44 y.o. [...] | | | | | [place], [place] | | | | | | [address] | | | | | | [phone] | | | | | | | [...] + | MRN: | [facility] | | [id number] Date: 04/07/2019Patient Name: Elzbieta Curtis #: | ENDOSCOPY | | [id number] of : 1975CSN: [id number] Type: | | | AmbulatoryRoom: Endo 5Procedure: Upper GI | | | endoscopyIndications: Generalized abdominal pain, Nausea | | | with vomitingProviders: TAL LUND MD | | | (Doctor), KEERTHI BERNARD RN (Nurse), | | | EREN SLATER (Pharmacy Resident)Referring MD: SYLVIA Kilpatrick | | | KENNY [...] | | | The Olympus [id number] Endoscope #[id number] | | | was introduced through the [...]
--- OUTSIDE RECORDS SUMMARY | ~2019-05-23 | XMS | Encounter Summary ---
Demographics + + + | Address | [address] | | | [place] [address] | + + + | Home Phone [...] [place], [place] | | | | | [address] | | + + + + + | Ellie Vang | ECON | Unknown | | + + + + + Care Team Providers + +------+ + | Care Daub Color Mixer Name | Role | Phone | + +------+ + | Fadi Goodrich DO | PCP | | + +------+ + Encounter Details +--------+ + + + + | Date | Type | Department | Care Team | Description | +--------+ + + + + | 02/13/ | Abstract | Cardiology | Randell Franks, | | | 2015 | | Preventive at [facility] | MD [address] | | | | | [address] | Ave [place], [place] | | | | | Mailcode: CH9A | [address] | | | | | [facility] | [phone] | | | | | and Healing, | | | | | | [address] | | | | | | [place], [place] | | | | | | [address] | | | | | | [phone] | | | +--------+ + + + [...] [place] | | | | | | [address] | | | | | | [phone] | | | | | | | | +--------+ + + + + documented as of this encounter Visit Diagnoses Not on filedocumented in this encounter"
--- OUTSIDE RECORDS SUMMARY | ~2019-05-23 | XMS | Encounter Summary ---
Demographics + + + | Address | [address] | | | [place] [address] | + + + | Home Phone [...] [place], [place] | | | | | [address] | | + + + + + | Ellie Vang | ECON | Unknown | | + + + + + Care Team Providers + +------+ + | Care Harness Cutter Name | Role | Phone | [...] | | | | | | [place] [address] | | | +--------+ + + + [...] | | 2019 | Visit | | [address] | | | | | | [place] [facility] [place] | | | | | | [address] | | | | | | [phone] | | | | | | | | +--------+ + + + + documented as of this encounter Visit Diagnoses Not on filedocumented in this encounter"
--- OUTSIDE RECORDS SUMMARY | ~2019-05-23 | XMS | Encounter Summary ---
Demographics + + + | Address | [address] | | | [place] [address] | + + + | Home Phone [...] [place], [place] | | | | | [address] | | + + + + + | Ellie Vang | ECON | Unknown | | + + + + + Care Team Providers + +------+ + | Care Slat Twister Name | Role | Phone | + [...] | [facility] | | | with LUMBER CHECKER | | hypertension | [address] | [facility] | | | | | Right | [address] | [address] | | | | | heart | [place], [place] | Mailcode: | | | | | failure | [address] | Center for | | | | | ([facility]) Type | Phone: | Health and | | | | | 2 diabetes | [phone] | Healing, | | | | | mellitus | Fax: | Building [address] | | | | | without | [phone] | [place], [place] | | | | | complication | | [address] | | | | | , with | | Phone: | | | | | long-term | | | | | | | current use | | Fax: | | | | | of insulin | | [phone] | | | | | ([facility]) | | | | [...] 2019 | Visit | Center at [facility] [address] | CLINICAL EXERCISE PHYSIOLOGIST [address] | gastric bypass | | | | [address] | Ave [place], [place] | (Primary Dx); | | | | Mailcode: [place] | [address] | Intertriginous | | | | for Health and | [phone] | candidiasis | | | | [facility] 2 | | | | | | [place], [place] | | | | | | [address] | | | | | | [phone] | | | +--------+---------+ + + + [...] Has a new PCP, Dr. Cardenas in [facility]. Bariatric Measures: Activity: walking 1.5-2 miles daily [...] index of 70 and over in adult ([facility]) Myalgia and myositis Nausea Neck pain Numbness Osteoarthritis of knee Palpitations Pneumonia Shortness of breath Staphylococcal infection Stroke ([facility]) TIA (transient ischemic attack) due [...] History Narrative Updated 11/09/15 She lives in [place] with her mother and her sister (also her caregiver) lives in an apa rtment/duplex below. She has 2 grandchildren (age 4 and 7) who live with her daughter and son-in-law Her boyfriend lives in [place] HFpEF, DM2, HTN, Sleep Apnea (unable to [...] refer her to our director of cardiac cath lab who also has expertise in physical activity [...] tongue once daily., Disp: , Rfl: CALCIUM CRB&KTM-G3-XLM83-GENIS ORAL, Take 2 tablets by mouth two [...] n/a -HTN: still on medications -Diabetes: seeing steel analyst in December, hopes to eliminate Metformin then as recent A1c was normal Return to bariatric clinic in 6 months for 1 year follow up visit See your primary care provider for adjusting any other medications. Call if any abdominal pain, n/v/d or other issues. Pt agrees to plan and will call and/or send fitkit message if any issues. Start time 2:45, end time 3:10. I spent a total of 25 minutes face to face with this patie nt. Over 50% of visit was in counseling. HILDA Davalos Bariatric Surgery Nurse Practitioner [facility] | [facility] [address] | [place], [place] | [address] | documented in this encounter Plan of [...] | | | | | [place], [place] | | | | | | [address] | | | | | | [phone] | | | | | | | [...] [facility] | [address] | [place] [address] | | | SERVICES, CORE | PARK [...] | + + + + + | [facility] | [address] | [place] [address] | | | SERVICES, CORE | CLARENCE [...] INTFC | | | | determined by [employer] | | | | | | Laboratories. See | | | | | | Compliance Statement B: | | | | | | Wag Moblie/CSPerformed | | | | | | by [employer],[address] | | | | | | [place], [place] | | | | | | [address] | | | | | | [phone].Redlen Technologiesuplab. | | | | | | [...] [facility] | [address] | [place], [place] | | | UNIV PTH - INTFC | | [address] | | + + + + + [...] B: | | | | | | [employer]Clikthrough/CSPerformed | | | | | | by [employer],[address] | | | | | | [facility] | | | | | | [address] | | | | | | [phone].[employer]. | | | | | | [facility], Ismael Willis MD, | | | [...] [facility] | [address] | [place], [place] | | | UNIV PTH - INTFC | | [address] | | + + + + + [...] [facility] | | | (YEN NOAH) | [facility],[address] | | REG UNIV | | | SERUM | [place]iana [place], [facility],[place] | | PTH - INTFC | | | | [address] | | | | | | [phone].arlab. | | | | | | [employer], Ismael Willis MD, | | | | | | Lab. Director | | | | + + + + + + | VITAMIN E | 9.3Comment: Test | 5.5 - 18.0 mg/L | [facility] | | | (ALPHA | developed and | | REG UNIV | | | NOAH), SERUM | characteristics | | PTH - INTFC | | | | determined by [facility] | | | | | | Laboratories. See | | | | | | Compliance Statement B: | | | | | | [employer]/CS | | | | + + + + + + + + | Specimen | + + | Blood - Blood | | (substance) | + + + + + + + | Performing | Address | City/State/Zipcode | Phone Number | | Organization | | | | + + + + + | [facility] | [address] | [place], [place] | | | UNIV PTH - INTFC | | [address] | | + + + + + [...] LABORATORY | [address] | [place] [address] | | | SERVICES, CORE | PARK [...] | + + + + + | [facility] | [address] [facility] | [place] [address] | | | SERVICES, CORE | CLARENCE [...] | | | | | determined by [employer] | | | | | | Laboratories. See | | | | | | Compliance Statement B: | | | | | | [employer]Clikthrough/CSPerformed | | | | | | by [employer],[address] | | | | | | [place]iana [place], [facility],[place] | | | | | | [address] | | | | | | [phone].BioCatch. | | | | | | ClikthroughIsmael MD, | | | | | | [...] [facility] | [address] | [place], [place] | | | UNIV PTH - INTFC | | [address] | | + + + + + [...] [facility] | [address] | [place] [address] | | | SERVICES, CORE | PARK [...] | | | | | determined by [employer] | | | | | | Laboratories. See | | | | | | Compliance Statement B: | | | | | | [employer].Clikthrough/CSPerformed | | | | | | by [employer],[address] | | | | | | [place]iana Martinez [facility],[place] | | | | | | [address] | | | | | | [phone].BioCatch. | | | | | | Ismael [...] [facility] | [address] | [place], [place] | | | UNIV PTH - INTFC | | [address] | | + + + + + [...] [facility] | [address] | [place] [address] | | | SERVICES, CORE | PARK [...] [facility] | [address] | [place] [address] | | | SERVICES, SPECIAL | CLARENCE [...] | + + + + + | [facility] | [address] | [place] [address] | | | SERVICES, CORE | CLARENCE [...] at | | | | | | [email or web address] | | | | | | med by [facility] | | | | | | [facility],[address] [facility] | | | | | | [place] [address] | | | | | | [phone].BioCatch. | | | | | | [facility]el MD, | | | | [...] [facility] | [address] | [place], [place] | | | UNIV PTH - INTFC | | [address] | | + + + + + [...] [facility] | [address] | [place] [address] | | | SERVICES, CORE | CLARENCE [...]
--- OUTSIDE RECORDS SUMMARY | ~2019-05-23 | XMS | Encounter Summary ---
Demographics + + + | Address | [address] | | | [place] [address] | + + + | Home Phone [...] [place], [place] | | | | | [address] | | + + + + + | Ellie Vang | ECON | Unknown | | + + + + + Care Team Providers + +------+ + | Care Sugar Laboratory Assistant Name | Role | Phone | + +------+ + | Fadi Goodrich DO | PCP | | + +------+ + Encounter Details +--------+------+ + + + | Date | Type | Department | Care Team | Description | +--------+------+ + + + | 11/28/ | Lab | Laboratory at [facility] | | Essential | | 2017 | | [address] | | hypertension; Right | | | | [place], [place] | | heart failure (HCC); | | | | [address] | | Type 2 diabetes | | | | [phone] | | mellitus without | | | [...] | | | | | [place], [place] | | | | | | [address] | | | | | | [phone] | | | | | | | [...] | | use of insulin ([facility]) | | + +--------+ + + + | TSH | Routin | 11/28/2016 | Essential | Results for this | | | e | 10:53 AM | hypertension Right | procedure are in the | | | | PDT | heart failure ([facility]) | [...] | PDT | heart failure ([facility]) | [...] LABORATORY | [address] | [place] [address] | | | SERVICES, CORE | CLARENCE [...] [facility] | [address] | [place], [place] | | | SERVICES, LIPID | [facility] | [id number] | | + + + + + HEMOGLOBIN A1C, BLOOD (11/28/2016 10:53 AM PDT) + + + + + + | Component | Value | Ref Range | Performed | Pathologist | | | | | At | Signature | + + + + + + | HEMOGLOBIN | 6.8 (H)Comment: Hgb A1C | <5.7 % | [facility] | | | A1C | Interpretive [...] | + + + + + | [facility] | [address] | [place] [address] | | | SERVICES, SPECIAL | PARK [...] | | | LABORATORY | | | IRANIAN | | | SERVICES, | | | [...] [facility] | [address] | [place] [address] | | | SERVICES, CORE | CLARENCE [...]
--- OUTSIDE RECORDS SUMMARY | ~2019-05-23 | XMS | Encounter Summary ---
Demographics + + + | Address | [address] | | | [place] [address] | + + + | Home Phone [...] [place], [place] | | | | | [address] | | + + + + + | Ellie Vang | ECON | Unknown | | + + + + + Care Team Providers + +------+ + | Care Aquatic Ecologist Name | Role | Phone | + [...] [address] | [place], [place] | | | | | Mailcode: [place] | [address] | | | | | [facility] | [phone] | | | | | and [address], | | | | | | [address] | | | | | | [place], [place] | | | | | | [address] | | | | | | [phone] | | | +--------+ + + + [...] | | 2018 | Visit | | [address] | | | | | | [place], [place] | | | | | | [address] | | | | | | [phone] | | | | | | | [...]
--- OUTSIDE RECORDS SUMMARY | ~2019-05-23 | XMS | Encounter Summary ---
Demographics + + + | Address | [address] | | | [place] [address] | + + + | Home Phone [...] [place], [place] | | | | | [address] | | + + + + + | Ellie Vang | ECON | Unknown | | + + + + + Care Team Providers + +------+ + | Care Lifter Driver Name | Role | Phone | [...] [address] | | | | | [place], [place] | [address] | | | [birth year]/ | | [address] | [place], [place] | | | 2014 | | [phone] | [address] | | | | | | [phone] | | | | | | | [...] port site who was transferre d to [facility] for concern of an incarcerated hernia. [...] mouth once daily. , Historical Med CALCIUM CRB&ZZF-F4-ITL87-GENIS ORAL Take 1 tablet by mouth two [...] AM Randell Franks Cardiology Preventive at [facility] [phone] Cardiology 04/09/2015 1:00 PM Egs Ppv Tra Trauma Emergency General Surgery at [facility] [phone] TRAU[facility] Outstanding labs/studies: None Discharging Physician: GABO LANGSTON MD Attending Physician: Dr. Cantu PCP: Fadi Goodrich DO Signed: GABO LANGSTON MD Pager #[phone] Surgical Fitter Helper [facility] Associated attestation - Tye Carrillo DO - 03/12/2015 9:12 AM PDTAttending: I discussed this patient with the resident and agree with the assessment and plan as outlin ed in this note and participated in the planning of care. Tye Carrillo DO, MBA, FACS Division of Trauma, Critical Care & Acute Care Surgery [facility] [phone] documented in this encounter Medications at Time of Discharge + + + +---------+--------+ + | Medication | Sig | Dispensed | Refills | Start | End Date | | | | | | Date | | + + + +---------+--------+ + | CALCIUM | Take 2 tablets by | | 0 | | | | CRB&SWG-F9-ZCZ31-GEN | mouth two times | | | [...] the original. [facility] DEPARTMENT OF SURGERY EMERGENCY GENERAL SURGERY Division [...] obesity with known ventral hernias transferred to [facility] for surgical managem ent of ventral hernia, now s/p repair. Post surgical pain: -patient ready for d/c, discussed f/u. Patient lives far away and has other appointments at [facility]. Will attempt to coordinate appointments. Discharge Plan: D/c today GABO LANGSTON MD Pager #[phone] Surgical Fitter Helper [facility] Nataliia Mendez Salomón rose R - 03/02/2015 1:12 PM PDT [facility] DEPARTMENT OF SURGERY EMERGENCY GENERAL SURGERY Division of Trauma and Critical Care Attending Physician: Shahid Cantu MD Progress Note Note Date: 03/02/2015 Admission Date: 2015 DYLAN ROMERO, Hospital Day #2 40 F PMH morbid obesity (BMI 71 today), DM2, depression, GERD, h/o stroke at age 18, and kn own ventral hernias transferred to [facility] for surgical treatment of suspected incarcerated [...] obesity with known ventral hernias transferred to [facility] for surgical managem ent of ventral [...] will be robel ing her home to [place], [place]. CALVIN ROMERO MD PGY-1 Anesthesiology Pager: [phone] [facility] A [address] [place] [address] Karthik Oneill MD - 03/02/2015 8:26 AM [id number] Calvin William Md - 03/01/2015 5:34 PM PDT Brief Post Operative Note: 40 F PMH morbid obesity (BMI 71 today), DM2, depression, GERD, h/o stroke at age 18, and kn own ventral hernias transferred to [facility] for surgical treatment of incarcerated ventral [...] control CALVIN ROMERO MD PGY-1 Anesthesiology Pager: [phone] signed by Calvin Romero Md at 03/01/2015 [...] | | 2019 | Visit | | [address] [facility] | | | | | | [place] [facility] [place] | | | | | | [address] | | | | | | [phone] | | | | | | | [...] | | Attending Surgeon: Shahid Cantu MD Machine Tool Builder(s): Howie Angeles MD, R5 | | Karthik [...] 03/02/2015 08:25:39DT: 03/02/2015 09:15:57Job #: | | [id number] | | | |Dr. Chris Cantu was present and scrubbed for the entirety of the case. | | | | | | | |Karthik Gonzalez MD | | | |Pursuant to federal Medicare and Medicaid regulations I was present for the entire procedur e. | | | | | | | |Shahid Cantu MD | |Auto Transmission Technician | |Trauma, Critical Care & Acute Care Surgery | | | | | | | |Shahid Cantu MD | |TBK/YOLANDE | | | | | | /[id number] | + ---+ CAPILLARY BLOOD GLUCOSE (NO [...] - [facility] | [address] | [place], [place] | | | JUSTINE DAWN OF CARE | [address] | [address] | | | TESTS | | | [...] AMES | [address] | [place], [place] | | | JUSTINE DAWN OF JAKY | [address] | [address] | | | TESTS | | | [...] [facility] | [address] | [place], [place] | | | [facility] OF CARE | [address] | [address] | | | TESTS | | | [...] - [facility] | [address] | [place], [place] | | | [facility] OF CARE | [address] | [address] | | | TESTS | | | [...] AMES | [address] | [place], [place] | | | JUSTINE DAWN OF JAKY | [address] | [address] | | | TESTS | | | [...] [facility] | [address] | [place], [place] | | | [facility] OF CARE | [address] | [address] | | | TESTS | | | [...] | + + + + + | [facility] | [address] | [place] [address] | | | SERVICES, CORE | CLARENCE [...] | | | LABORATORY | | | [place] | | | SERVICES, | | | [...] [facility] | [address] | [place] [address] | | | SERVICES, CORE | CLARENCE [...] (H) | 60 - 99 mg/dL | [facility] - | | | GLUCOSE, [...] AMES | [address] | [place], [place] | | | [place] POINT OF CARE | [address] | [address] | | | TESTS | | | [...] [facility] | [address] | [place], [place] | | | JUSTINE DAWN OF CARE | [facility] | [address] | | | TESTS | | | [...] - [facility] | [address] | [place], [place] | | | [place] POINT OF CARE | [address] | [address] | | | TESTS | | | [...] AMES | [address] | [place], [place] | | | [place] POINT OF CARE | [address] | [address] | | | TESTS | | | [...] [facility] | [address] | [place], [place] | | | JUSTINE DAWN OF CARE | [address] | [address] | | | TESTS | | | [...] | + + + + + | [facility] | [address] | [place] [address] | | | LDYIA RANGEL | [address] | | | [...] [facility] | [address] | [place], [place] | | | H[place], POINT OF CARE | [address] | [address] | | | TESTS | | | [...] injection 1 dose, | | | Starting [facility] 03/01/15 at 1215, | | | Until [facility] 03/01/15 at 1216 | | + +---+ | | | + +---+ + +-------+ +-------+---+---+ | FLUoxetine (PROZAC) capsule 40 | Given | 03/03/20 | 40 mg | | | | mg 40 mg, oral, DAILY, First | | 15 8:32 | | | | | dose on [facility] 03/01/15 at 0900, Until | | [...] | | | | | dose on [facility] 03/01/15 at 0900, Until | | [...] | | | | | dose on [facility] 03/01/15 at 0900, Until | | [...]
--- OUTSIDE RECORDS SUMMARY | ~2019-05-23 | XMS | Encounter Summary ---
Demographics + + + | Address | [address] | | | [place] [address] | + + + | Home Phone [...] [place], [place] | | | | | [address] | | + + + + + | Ellie Vang | ECON | Unknown | | + + + + + Care Team Providers + +------+ + | Care Field Technical Support Consultant Name | Role | Phone [...] | | [address] | [place], [place] | | | | | Mailcode: [place] | [address] | | | | | for Health and | [phone] | | | | | [facility] 2 | | | | | | [place], [place] | | | | | | [address] | | | | | | [phone] | | | +--------+ + + + [...] | | | | | [place] | | | | | | [address] | | | | | | [phone] | | | | | | | | +--------+ + + + + documented as of this encounter Visit Diagnoses Not on filedocumented in this encounter"
--- OUTSIDE RECORDS SUMMARY | ~2019-05-23 | XMS | Encounter Summary ---
Demographics + + + | Address | [address] | | | [place] [address] | + + + | Home Phone [...] [place], [place] | | | | | [address] | | + + + + + | Ellie Vang | ECON | Unknown | | + + + + + Care Team Providers + +------+ + | Care Algebraist Name | Role | Phone | + [...] | | [address] | Ave [place], [place] | | | | | Mailcode: [place] | [address] | | | | | for Health and | [phone] | | | | | [facility] 2 | | | | | | [facility] [place] | | | | | | [address] | | | | | | | [...] | | | | | [place] | | | | | | [address] | | | | | | [phone] | | | | | | | | +--------+ + + + + documented as of this encounter Visit Diagnoses Not on filedocumented in this encounter"
--- OUTSIDE RECORDS SUMMARY | ~2019-05-23 | XMS | Encounter Summary ---
Demographics + + + | Address | [address] | | | [place] [address] | + + + | Home Phone [...] + | Katalina Padilla | ECON | [address] | | | | | [place], [place] | | | | | [address] | | + + + + + | Ellie Vang | ECON | Unknown | | + + + + + Care Team Providers + +------+ + | Care Market Gardener Name | Role | Phone | [...] at | | | | | | [facility] | | | | | | [address] | | | | | | Mailcode: OC2L | | | | | | [facility] | | | | | | and Healing, | | | | | | Building [address] | | | | | | [place], [place] | | | | | | [address] | | | | | | [phone] | | | +--------+ + + + [...] | | | | | [place], [place] | | | | | | [address] | | | | | | [phone] | | | | | | | | +--------+ + + + + documented as of this encounter Visit Diagnoses Not on filedocumented in this encounter"
--- OUTSIDE RECORDS SUMMARY | ~2019-05-23 | XMS | Encounter Summary ---
Demographics + + + | Address | [address] | | | [place] [address] | + + + | Home Phone [...] [place], [place] | | | | | [address] | | + + + + + | Ellie Vang | ECON | Unknown | | + + + + + Care Team Providers + +------+ + | Care Cigar Head Pegger Name | Role | Phone | + [...] | | | | | | [place] [address] | | | +--------+ + + + [...] | | 2019 | Visit | | [address] | | | | | | [place] [facility] [place] | | | | | | [address] | | | | | | [phone] | | | | | | | | +--------+ + + + + documented as of this encounter Visit Diagnoses Not on filedocumented in this encounter"
--- OUTSIDE RECORDS SUMMARY | ~2019-05-23 | XMS | Encounter Summary ---
Demographics + + + | Address | [address] | | | [place] [address] | + + + | Home Phone [...] [place], [place] | | | | | [address] | | + + + + + | Ellie Vang | ECON | Unknown | | + + + + + Care Team Providers + +------+ + | Care Airport Security Screener Name | Role | Phone | [...] | | | | | | [place] [address] | | | +--------+ + + + [...] | | 2019 | Visit | | [address] | | | | | | [place] [facility] [place] | | | | | | [address] | | | | | | [phone] | | | | | | | | +--------+ + + + + documented as of this encounter Visit Diagnoses Not on filedocumented in this encounter"
--- OUTSIDE RECORDS SUMMARY | ~2019-05-23 | XMS | Encounter Summary ---
Demographics + + + | Address | [address] | | | [place] [address] | + + + | Home Phone [...] [place], [place] | | | | | [address] | | + + + + + | Ellie Vang | ECON | Unknown | | + + + + + Care Team Providers + +------+ + | Care Blending Kettle Tender Name | Role | Phone | [...] | | 2019 | Visit | | [address] | | | | | | [place], [place] | | | | | | [address] | | | | | | [phone] | | | | | | | | +--------+ + + + + documented as of this encounter Visit Diagnoses Not on filedocumented in this encounter"
--- OUTSIDE RECORDS SUMMARY | ~2019-05-23 | XMS | Encounter Summary ---
Demographics + + + | Address | [address] | | | [place] [address] | + + + | Home Phone [...] [place], [place] | | | | | [address] | | + + + + + | Ellie Vang | ECON | Unknown | | + + + + + Care Team Providers + +------+ + | Care Quality Compliance Manager Name | Role | Phone [...] | | | | | Procedures | [place], [place] | | | | | | TRANSTHORACI | [address] | | | | | | C | Phone: | | | | | | ECHOCARDIOGR | [phone] | | | | | | AM, ADULT | Fax: | | | | | | | [phone] | | +--------+--------+ + + + + [...] 11/05/ | Office | Cardiology | Randell Frakns, | SANAZ (dyspnea on | | 2016 | Visit | Preventive at [facility] | MD [address] | exertion) (Primary | | | | [address] | [place], [place] | Dx) | | | | Mailcode: CH9A | [address] | | | | | [facility] | [phone] | | | | | and [place]rick, | | | | | | [address] | | | | | | [place], [place] | | | | | | [address] | | | | | | [phone] | | | +--------+---------+ + + + [...] 500 mg by mouth once daily. CALCIUM CRB&MKM-L2-UGR51-GENIS ORAL Take 1 tablet by mouth two [...] himself to the local hospit al in [place] and so this has been delayed. ROS: [...] to lose the additional weight requested by [facility]. This current [...] | | | | | [place], [place] | | | | | | [address] | | | | | | [phone] | | | | | | | [...]
--- OUTSIDE RECORDS SUMMARY | ~2019-05-23 | XMS | Encounter Summary ---
Demographics + + + | Address | [address] | | | [place] [address] | + + + | Home Phone [...] + | Katalina Padilla | ECON | [address] | | | | | [place], [place] | | | | | [address] | | + + + + + | Ellie Vang | ECON | Unknown | | + + + + + Care Team Providers + +------+ + | Care Medical Record Consultant Name | Role | Phone | [...] 2013 | | Center at [facility] [address] | ADMINISTRATIVE SUPPORT ASSISTANT [address] | | | | | [address] | [facility] 350 | | | | | Mailcode: Center | [place], [place] | | | | | [facility] and | [address] | | | | | [facility] 2 | [phone] | | | | | [place], [place] | | | | | | [address] | | | | | | [phone] | | | +--------+ + + + [...] | | 2019 | Visit | | [address] | | | | | | [place] [facility] [place] | | | | | | [address] | | | | | | [phone] | | | | | | | | +--------+ + + + + documented as of this encounter Visit Diagnoses Not on filedocumented in this encounter"
--- OUTSIDE RECORDS SUMMARY | ~2019-05-23 | XMS | Encounter Summary ---
Demographics + + + | Address | [address] | | | [place] [address] | + + + | Home Phone [...] [place], [place] | | | | | [address] | | + + + + + | Ellie Vang | ECON | Unknown | | + + + + + Care Team Providers + +------+ + | Care Room Service Supervisor Name | Role | Phone | + +------+ + | Kenyatta Cardenas MD | PCP | | + +------+ + Encounter Details +--------+ + + + + | Date | Type | Department | Care Team | Description | +--------+ + + + + | 03/10/ | Pharmacy | [facility] | | | | 2018 | Visit | & [facility] | | | | | | [address] | | | | | | Mailcode: Center | | | | | | [facility] and | | | | | | [facility] 1 | | | | | | [place], [place] | | | | | | [address] | | | | | | [phone] | | | +--------+ + + + [...] [place] | | | | | | [address] | | | | | | [phone] | | | | | | | | +--------+ + + + + documented as of this encounter Visit Diagnoses Not on filedocumented in this encounter"
--- OUTSIDE RECORDS SUMMARY | ~2019-05-23 | XMS | Encounter Summary ---
Demographics + + + | Address | [address] | | | [place] [address] | + + + | Home Phone [...] + | Katalina Padilla | ECON | [address] | | | | | [place], [place] | | | | | [address] | | + + + + + | Ellie Vang | ECON | Unknown | | + + + + + Care Team Providers + +------+ + | Care Dietitian Helper Name | Role | Phone | + +------+ + | Fadi Goodrich DO | PCP | | + +------+ + Encounter Details +--------+ + + + + | Date | Type | Department | Care Team | Description | +--------+ + + + + | 12/12/ | Emergency | [facility] Emergency | | | | 2014 - | | Department [address] | | | | | [address] | | | | 05/20/ | | [facility] | | | | 2014 | | [place], [place] | | | | | | [address] | | | | | | [phone] | | | +--------+ + + + [...] [place] | | | | | | [address] | | | | | | [phone] | | | | | | | | +--------+ + + + + documented as of this encounter Visit Diagnoses Not on filedocumented in this encounter"
--- OUTSIDE RECORDS SUMMARY | ~2019-05-23 | XMS | Encounter Summary ---
Demographics + + + | Address | [address] | | | [place] [address] | + + + | Home Phone [...] [place], [place] | | | | | [address] | | + + + + + | Ellie Vang | ECON | Unknown | | + + + + + Care Team Providers + +------+ + | Care Switchboard Manager Name | Role | Phone | [...] 2019 | Encounter | Lab at [facility] [address] | [address] | | | | | [address] [place] Mailcode: | [place], [place] | | | | | [address] [facility] | [address] | | | | | Health and Healing, | [phone] | | | | | [address] | | | | | | Floor [facility] [place] | | | | | | [address] | | | | | | [phone] | | | +--------+ + + + [...] | | 0 | | | | CRB&KVX-B5-JTQ02-GEN | mouth two times | | | [...] | | | | | [place], [place] | | | | | | [address] | | | | | | [phone] | | | | | | | [...] | MD Gee 03/22/2019 1:03 PM Preliminary: Jamle Flynn MD | | | Dictation initiated: Jamel Flynn MD 03/22/2019 12:50 PM | | + + + + + | Procedure Note | + + | Service Account, TrackVia Res In Interface - 03/22/2019 1:04 PM [...] as now presented. Final | | signature: aJmel Flynn MD 03/22/2019 1:03 PM Preliminary: Jamel [...]
--- OUTSIDE RECORDS SUMMARY | ~2019-05-23 | XMS | Encounter Summary ---
Demographics + + + | Address | [address] | | | [place] [address] | + + + | Home Phone [...] [place], [place] | | | | | [address] | | + + + + + | Ellie Vang | ECON | Unknown | | + + + + + Care Team Providers + +------+ + | Care Sweatband Perforator Name | Role | Phone | + [...] Mailcode:OP14B | | | | | | [facility] | | | | | | [place], [place] | | | | | | [address] | | | | | | [phone] | | | +--------+ + + + [...] [place] | | | | | | [address] | | | | | | [phone] | | | | | | | [...] in | | | | | | [place]. | | | | | | | | | | | | Julia Blackman at [facility]. | | | | | | | [...] | | | | artery. A 4.1 Romansh | | | | | | catheter was navigated | | | | | | over0.035" Donal coated | | | | | | [employer] guide wire into | | | | [...]
--- OUTSIDE RECORDS SUMMARY | ~2019-05-23 | XMS | Encounter Summary ---
Demographics + + + | Address | [address] | | | [place] [address] | + + + | Home Phone [...] [place], [place] | | | | | [address] | | + + + + + | Ellie Vang | ECON | Unknown | | + + + + + Care Team Providers + +------+ + | Care Bar Back Name | Role | Phone | + [...] Dx) | | | | Surgery at [facility] [address] | [place], [place] | | | | | [address] | [address] | | | | | Mailcode: [facility] | [phone] | | | | | [facility] | | | | | | and Healing, | | | | | | Building 1, 5th | | | | | | Floor [place], [place] | | | | | | [address] | | | | | | [phone] | | | +--------+---------+ + + + [...] 150 cm or less 8 [facility], Dr Pandey Cholecystectomy, laparoscopic Allergies Allergen [...] 50 mg by mouth once daily. CALCIUM CRB&LEK-Z1-PYZ99-GENIS ORAL Take 2 tablets by mouth two [...] | | | | | [place], [place] | | | | | | [address] | | | | | | [phone] | | | | | | | | +--------+ + + + + documented as of this encounter Visit Diagnoses + + | Diagnosis | + + | Excess skin of abdomen - Primary Unspecified hypertrophic and atrophic condition of | | skin | + + documented in this encounter
--- OUTSIDE RECORDS SUMMARY | ~2019-05-23 | XMS | Encounter Summary ---
Demographics + + + | Address | [address] | | | [place] [address] | + + + | Home Phone [...] + | Katalina Padilla | ECON | [address] | | | | | [place], [place] | | | | | [address] | | + + + + + | Ellie Vang | ECON | Unknown | | + + + + + Care Team Providers + +------+ + | Care Embedded Processor Name | Role | Phone | [...] | | 2019 | | Center at [facility] [address] | MD Jorje [address] | [address] | [address] | | | | | Mailcode: Center | [place], [place] | | | | | [facility] and | [address] | | | | | [facility] 2 | [phone] | | | | | [place], [place] | | | | | | [address] | | | | | | [phone] | | | +--------+ + + + [...] | | | | | [place], [place] | | | | | | [address] | | | | | | [phone] | | | | | | | | +--------+ + + + + documented as of this encounter Visit Diagnoses Not on filedocumented in this encounter"
--- OUTSIDE RECORDS SUMMARY | ~2019-05-23 | XMS | Encounter Summary ---
Demographics + + + | Address | [address] | | | [place] [address] | + + + | Home Phone [...] [place], [place] | | | | | [address] | | + + + + + | Ellie Vang | ECON | Unknown | | + + + + + Care Team Providers + +------+ + | Care Motorboat Mechanic Inboard/Outboard Name | Role | Phone | + [...] | [facility] | | | with WELL SHOOTER | | hypertension | [address] | [address] | | | | | Right | [address] | [address] | | | | | heart | [place], [place] | Mailcode: | | | | | failure | [address] | Center for | | | | | ([facility]) Type | Phone: | Health and | | | | | 2 diabetes | [phone] | Healing, | | | | | mellitus | Fax: | Building 2 | | | | | without | [phone] | [place], [place] | | | | | complication | | [address] | | | | | , with | | Phone: | | | | | long-term | | | | | | | current use | | Fax: | | | | | of insulin | | [phone] | | | | | (FORMERLY [facility] [...] Visit | Center at [facility] [address] | [address] | BMI of 70 and over, | | | | [address] | [place], [place] | adult ([facility]) (Primary | | | | Mailcode: Center | [address] | Dx); Diabetes | | | | for [place] and | [phone] | mellitus type 2 | | | | [facility], [address] 2 | | without retinopathy | | | | [place], [place] | | ([facility]); | | | | [address] | | Intertriginous | | | | [phone] | | candidiasis; PCOS | | | | | | (polycystic ovarian | | | | | | syndrome); AMARA | | | | | | treated with BiPAP; | | | | | | Chronic diastolic | | | | | | heart failure ([facility]); | | | | | | Essential [...] 10/30/2017 10:00 AM PDTPlease visit with our [facility] And Safety Consultant (RD) for instructions about your Bariatric diet, assistance with calorie c ounts, tips and tricks for working with your diet restrictions, and recipes after bariatric surgery. Daily yogurt; even just 1 tablespoon twice a day will provide enough probiotics to optimize digestion. Try to use a high-quality, probiotic-dense yogurt (eg Zaria's, Kobifield, Stacie lala Kefir, Adhesive Bonding Machine Operator [employer] [place] Yogurt). Remember to chew your food well, [...] to the healing stomach. There are also residential complications of poor wound healing and gastric [...] 1 tablet by mouth once daily CALCIUM CRB&QWB-D9-VUO57-GENIS ORAL Take 2 tablets by mouth two [...] History Narrative Updated 11/09/15 She lives in [place] with her mother and her sister (also her caregiver) lives in an artment/duplex below. She has 2 grandchildren (age 4 and 7) who live with her daughter and son-in-law Her boyfriend lives in [place] HFpEF, DM2, HTN, Sleep Apnea (unable to [...] here and refer her to our database specialist who also has expertise in physical [...] 4-5% rate of reoperation over the termite treater helper (i.e. years), as well as other [...] approach 5%. We reviewed the [facility] consent form. We discussed that [...] | | | | | [place], [place] | | | | | | [address] | | | | | | [phone] | | | | | | | [...] | | | | | determined by [employer] | | | | | | Laboratories. See | | | | | | Compliance Statement B: | | | | | | [employer]/CSPerformed | | | | | | by [employer],[address] | | | | | | [facility] | | | | | | [address] | | | | | | [phone].[employer]. | | | | | | tooele [...] [facility] | [address] | [place], [place] | | | [facility] | | [address] | | + + + + + [...] [facility] | [address] | [place] [address] | | | SERVICES, CORE | PARK [...] [facility] | [address] | [place] [address] | | | SERVICES, CORE | PARK [...] [facility] | [address] | [place] [address] | | | CLAIRE, LYDIA | PARK [...] | + + + + + | [facility] | [address] | [place] [address] | | | SERVICES, CORE | CLARENCE [...] [facility] | [address] | [place] [address] | | | SERVICES, CORE | PARK [...] + + + | [facility] | [address] | [place] [address] | | | SERVICES, CORE | CLARENCE [...]
--- OUTSIDE RECORDS SUMMARY | ~2019-05-23 | XMS | Encounter Summary ---
Demographics + + + | Address | [address] | | | [place] [address] | + + + | Home Phone [...] [place], [place] | | | | | [address] | | + + + + + | Ellie Vang | ECON | Unknown | | + + + + + Care Team Providers + +------+ + | Care Lunchroom Operator Name | Role | Phone | [...] NISH EN | | 2017 | | [facility] | MD [address] | Y GASTRIC BYPASS | | | | Admitting Desk | [place], [place] | | | | | Located on the | [address] | | | | | floor [address] [facility] | [phone] | | | | | [address] | | | | | | [place], [place] | | | | | | [address] | | | +--------+---------+ + + + [...] Gavin ACNP - 03/03/2018 9:49 AM PDT [facility] RED SURGERY INPATIENT DISCHARGE SUMMARY [...] en Y gastric bypass Brief Hospital Course Elbzieta Cristina is a 43 y.o. woman with [...] a bariatric full liquid diets. Our [facility] dietitian was consulted and they discussed [...] at minimum. 5. Follow with PCP for Mica Patcher within 1 - 2 weeks of discharge [...] mg by mouth two times daily. CALCIUM CRB&TRA-Y2-QYO13-GENIS ORAL Take 2 tablets by mouth two [...] yogurt or kefir. Zaria's Yogurt or Kefir, CallGraderfield Yogurt, and Sentientn i Yoruba Yogurt are common brands with beneficial probiotics. [...] available over the counter at most [facility] stores. Nausea/Vomiting/Difficulty Swallowing Nausea/Vomiting/Difficulty swallowing: [...] hours per your instructions. Some medications, like [place], have Tylenol in it. Make sure you [...] (PCP) as this clinic does not provide [facility] services. When to [...] hours by calling the surgery office at [phone]. - After hours, weekends and holidays, you may call the hospital probe operator at [phone] an d have the economics faculty member Red Surgery Team paged. OTHER DISCHARGE ORDERS [...] at minimum. 5. Follow with PCP for Mica Patcher within 1 - 2 weeks of discharge [...] Department Dept Phone Center 03/10/2018 1:30 PM [facility] at [facility] 6th Floor [phone] FO OD AND NUT 03/10/2018 3:05 PM Ronna Clarke [facility] at [facility] 6th Floor [phone] [facility] 04/01/2018 10:30 AM [facility] at [facility] 6th Floor [phone] FO OD AND NUT 04/01/2018 11:00 AM Ion Castanon [facility] at [facility] 6th Floor [phone] [facility] 05/27/2018 2:30 PM [facility] at [facility] 6th Floor [phone] FO OD AND NUT 05/27/2018 3:05 PM [facility] 6th Floor [phone] [facility] 05/27/2018 4:30 PM [facility] at [facility] 15th Floor [phone] Comprehensiv 06/04/2018 10:35 AM Randell Franks Cardiology Preventive at [facility] [phone] Cardiology Discharging Physician: KAIN Agee Attending Physician: Ion Castanon MD [facility] Red Surgery Pager# [phone] 9:50 AM 03/03/2018 documented in this enco [...] | | 0 | | | | [id number]-G9-[id number]-GEN | mouth two times | | | [...] date of discharge 03/03/18 PARTHA Calixto MS3 [facility] [employer] Demarcus Menon [...] for care ride home (pt lives in [place]) Demarcus Alas M.D. General Surgery Resident PGY-1 Pager: [phone] Ion Ferrari MD - 10:00 AM PDTI [...] | 2019 | Visit | | [address] | | | | | | [place], [place] | | | | | | [address] | | | | | | [phone] | | | | | | | [...] POC | | PDT | over, adult ([facility]) | results section. | + +--------+ + + + | CAPILLARY BLOOD | Routin | 03/03/2018 | Morbid obesity | Results for this | | GLUCOSE (NO CHG), | e | 7:54 AM | with BMI of 70 and | procedure are in the | | POC | | PDT | over, adult ([facility]) | results section. | + +--------+ + + + | CAPILLARY BLOOD | Routin | 03/03/2018 | Morbid obesity | Results for this | | GLUCOSE (NO CHG), | e | 6:28 AM | with BMI of 70 and | procedure are in the | | POC | | PDT | over, adult ([facility]) | results section. | + +--------+ + + + | CAPILLARY BLOOD | Routin | 03/02/2018 | Morbid obesity | Results for this | | GLUCOSE (NO CHG), | e | 9:17 PM | with BMI of 70 and | procedure are in the | | POC | | PDT | over, adult ([facility]) | results section. | + +--------+ + + + | CAPILLARY BLOOD | Routin | 03/02/2018 | Morbid obesity | Results for this | | GLUCOSE (NO CHG), | e | 6:50 PM | with BMI of 70 and | procedure are in the | | POC | | PDT | over, adult ([facility]) | results section. | + +--------+ + + + | CAPILLARY BLOOD | Routin | 03/02/2018 | Morbid obesity | Results for this | | GLUCOSE (NO CHG), | e | 3:46 PM | with BMI of 70 and | procedure are in the | | POC | | PDT | over, adult ([facility]) | results section. | + +--------+ + + + | CAPILLARY BLOOD | Routin | 03/02/2018 | Morbid obesity | Results for this | | GLUCOSE (NO CHG), | e | 2:36 PM | with BMI of 70 and | procedure are in the | | POC | | PDT | over, adult ([facility]) | results section. | + +--------+ + + + | CAPILLARY BLOOD | Routin | 03/02/2018 | Morbid obesity | Results for this | | GLUCOSE (NO CHG), | e | 1:33 PM | with BMI of 70 and | procedure are in the | | POC | | PDT | over, adult ([facility]) | results section. | + +--------+ + + + | CAPILLARY BLOOD | Routin | 03/02/2018 | Morbid obesity | Results for this | | GLUCOSE (NO CHG), | e | 11:36 AM | with BMI of 70 and | procedure are in the | | POC | | PDT | over, adult ([facility]) | results section. | + +--------+ + + + | CAPILLARY BLOOD | Routin | 03/02/2018 | Morbid obesity | Results for this | | GLUCOSE (NO CHG), | e | 10:32 AM | with BMI of 70 and | procedure are in the | | POC | | PDT | over, adult ([facility]) | results section. | + +--------+ + + + | CAPILLARY BLOOD | Routin | 03/02/2018 | Morbid obesity | Results for this | | GLUCOSE (NO CHG), | e | 9:23 AM | with BMI of 70 and | procedure are in the | | POC | | PDT | over, adult ([facility]) | results section. | + +--------+ + + + | CAPILLARY BLOOD | Routin | 03/02/2018 | Morbid obesity | Results for this | | GLUCOSE (NO CHG), | e | 8:36 AM | with BMI of 70 and | procedure are in the | | POC | | PDT | over, adult ([facility]) | results section. | + +--------+ + + + | CAPILLARY BLOOD | Routin | 03/02/2018 | Morbid obesity | Results for this | | GLUCOSE (NO CHG), | e | 7:35 AM | with BMI of 70 and | procedure are in the | | POC | | PDT | over, adult ([facility]) | results section. | + +--------+ + + + | CAPILLARY BLOOD | Routin | 03/02/2018 | Morbid obesity | Results for this | | GLUCOSE (NO CHG), | e | 6:33 AM | with BMI of 70 and | procedure are in the | | POC | | PDT | over, adult ([facility]) | results section. | + +--------+ + + + | CAPILLARY BLOOD | Routin | 03/02/2018 | Morbid obesity | Results for this | | GLUCOSE (NO CHG), | e | 5:28 AM | with BMI of 70 and | procedure are in the | | POC | | PDT | over, adult ([facility]) | results section. | + +--------+ + + + | CAPILLARY BLOOD | Routin | 03/02/2018 | Morbid obesity | Results for this | | GLUCOSE (NO CHG), | e | 4:36 AM | with BMI of 70 and | procedure are in the | | POC | | PDT | over, adult ([facility]) | results section. | + +--------+ + + + | CAPILLARY BLOOD | Routin | 03/02/2018 | Morbid obesity | Results for this | | GLUCOSE (NO CHG), | e | 2:46 AM | with BMI of 70 and | procedure are in the | | POC | | PDT | over, adult ([facility]) | results section. | + +--------+ + + + | CAPILLARY BLOOD | Routin | 03/02/2018 | Morbid obesity | Results for this | | GLUCOSE (NO CHG), | e | 12:32 AM | with BMI of 70 and | procedure are in the | | POC | | PDT | over, adult ([facility]) | results section. | + +--------+ + + + | CAPILLARY BLOOD | Routin | 03/01/2018 | Morbid obesity | Results for this | | GLUCOSE (NO CHG), | e | 10:31 PM | with BMI of 70 and | procedure are in the | | POC | | PDT | over, adult ([facility]) | results section. | + +--------+ + + + | CAPILLARY BLOOD | Routin | 03/01/2018 | Morbid obesity | Results for this | | GLUCOSE (NO CHG), | e | 8:21 PM | with BMI of 70 and | procedure are in the | | POC | | PDT | over, adult ([facility]) | results section. | + +--------+ [...] POC | | PDT | over, adult ([facility]) | results section. | + +--------+ + + + | CAPILLARY BLOOD | Routin | 03/01/2018 | Morbid obesity | Results for this | | GLUCOSE (NO CHG), | e | 3:31 PM | with BMI of 70 and | procedure are in the | | POC | | PDT | over, adult ([facility]) | results section. | + +--------+ + + + | CAPILLARY BLOOD | Routin | 03/01/2018 | Morbid obesity | Results for this | | GLUCOSE (NO CHG), | e | 3:29 PM | with BMI of 70 and | procedure are in the | | POC | | PDT | over, adult ([facility]) | results section. | + +--------+ + + + | CAPILLARY BLOOD | Routin | 03/01/2018 | Morbid obesity | Results for this | | GLUCOSE (NO CHG), | e | 2:30 PM | with BMI of 70 and | procedure are in the | | POC | | PDT | over, adult ([facility]) | results section. | + +--------+ + + + | CAPILLARY BLOOD | Routin | 03/01/2018 | Morbid obesity | Results for this | | GLUCOSE (NO CHG), | e | 1:35 PM | with BMI of 70 and | procedure are in the | | POC | | PDT | over, adult ([facility]) | results section. | + +--------+ + + + | CAPILLARY BLOOD | Routin | 03/01/2018 | Morbid obesity | Results for this | | GLUCOSE (NO CHG), | e | 12:16 PM | with BMI of 70 and | procedure are in the | | POC | | PDT | over, adult ([facility]) | results section. | + +--------+ [...] POC | | PDT | over, adult ([facility]) | results section. | + +--------+ + + + | LAPAROSCOPIC | Electi | 03/01/2018 | Morbid obesity | | | NISH-EN-Y GASTRIC | ve | 8:31 AM | ([facility]) | | | BYPASS | Surgic [...] MARPATAM | [address] | [place], [place] | | | [facility] | [address] | [address] | | | TESTS | | | [...] - MARQUAM | [address] | [place], [place] | | | [facility] | [address] | [address] | | | TESTS | | | [...] AMES | [address] | [place], [place] | | | [facility] | [address] | [address] | | | TESTS | | | [...] MARQUAM | [address] | [place], [place] | | | [facility] | [address] | [address] | | | TESTS | | | [...] - MARQUAM | [address] | [place], [place] | | | [facility] | [address] | [address] | | | TESTS | | | [...] + + + | NKECHI AMES | [address] | [place], [place] | | | [facility] | [address] | [address] | | | TESTS | | | [...] MARQUAM | [address] | [place], [place] | | | [facility] | [address] | [address] | | | TESTS | | | [...] - MARQUAM | [address] | [place], [place] | | | [facility] | [address] | [address] | | | TESTS | | | [...] + + + | NKECHI AMES | [address] | [place], [place] | | | [facility] | [address] | [address] | | | TESTS | | | [...] MARQUAM | [address] | [place], [place] | | | [facility] | [address] | [address] | | | TESTS | | | [...] - MARQUAM | [address] | [place], [place] | | | [facility]ARE | [address] | [address] | | | TESTS | | | [...] (H) | 70 - 99 mg/dL | [facility] - | | | GLUCOSE, [...] AMES | [address] | [place], [place] | | | [facility] [facility] | [address] | [address] | | | TESTS | | | [...] MARQUAM | [address] | [place], [place] | | | [facility] | [address] | [address] | | | TESTS | | | [...] KWAKU | [address] | [place], [place] | | | [facility] POINT [facility] CARE | [address] | [address] | | | TESTS | | | [...] (H) | 70 - 99 mg/dL | [facility] - | | | GLUCOSE, [...] AMES | [address] | [place], [place] | | | [facility] | [address] | [address] | | | TESTS | | | [...] KWAKU | [address] | [place], [place] | | | [facility] | [address] | [address] | | | TESTS | | | [...] - KWAKU | [address] | [place], [place] | | | [facility] | [facility] | [address] | | | TESTS | | | [...] (H) | 70 - 99 mg/dL | [facility] - | | | GLUCOSE, [...] AMES | [address] | [place], [place] | | | [facility] | [address] | [address] | | | TESTS | | | [...] KWAKU | [address] | [place], [place] | | | [facility] | [address] | [address] | | | TESTS | | | [...] - KWAKU | [address] | [place], [place] | | | [facility] | [facility] | [address] | | | TESTS | | | [...] AMES | [address] | [place], [place] | | | [facility] PO[facility] CARE | [address] | [address] | | | TESTS | | | [...] MARQUAM | [address] | [place], [place] | | | [facility] | [address] | [address] | | | TESTS | | | [...] KWAKU | [address] | [place], [place] | | | [facility] | [facility] | [address] | | | TESTS | | | [...] (H) | 70 - 99 mg/dL | [facility] - | | | GLUCOSE, [...] AMES | [address] | [place], [place] | | | [facility] POINT OF CARE | [facility] | [address] | | | TESTS | | | [...] MARQUAM | [address] | [place], [place] | | | JUSTINE DAN[facility] CARE | [address] | [address] | | | TESTS | | | [...] NKECHI AMES | [address] | [place], [place] | | | [facility] | [address] | [address] | | | TESTS | | | | + + + + + EGD (ESOPHAGOGASTRODUODENOSCOPY) (03/01/2018 11:21 AM PDT) + + + | Narrative | Performed At | + + + | Ion Castanon MD 03/01/2018 12:25 PM Date of Procedure: | | | 03/01/18 Primary Surgeon: Ion Castanon MD Co Surgeon or | | | assistant reading teacher: Eldon Gonzalez MD, Chief Resident Alexx | [...] The jejunum was divided with 60 mm [place] stapler with white | | | load [...] created in each limb and a 60mm [place] stapler | | | with white load was fired to create a [id number] | | | jejunojejunostomy. The anastamosis was confirmed to be widely | | | patent and hemostatic. The common enterotomy was closed by placing | | | 2 stay sutures along the enterotomy for retraction and firing an | | | [place] 60mm stapler with white load across the [...] | | | was entered. The 60mm [place] stapler with blue load was placed | [...] blue load of the 60mm stapler. The [place] was then fired | | | longitudinally towards the angle of His to create the gastric pouch, | | | leaving the gastrotomy from foreign body removal, on the pouch. | | | Dissection was performed retrogastric to connect posterior and | | | anterior dissection planes and ensure adequate fundus exclusion. | | | Additional fires of the [place] stapler were performed with blue | | [...] with | | | 5 mm clip international project manager. A 25mm Orvil was passed transorally by [...] was closed with 60mm | | | [place] stapler with a white load. Medially and [...] present | | | as my assistant reading teacher for the entire procedure, given the technically | | | challenging nature of this procedure. She assisted in all critical | | | steps of the procedure. Dr. Gonzalez was present for endoscopy at the | | | end of the procedure. Ion Castanon MD, FACS, [facility] | | | Bariatric Surgery | [...] Co Surgeon or | | | assistant reading teacher: Eldon Gonzalez MD, Chief Resident Alexx | [...] The jejunum was divided with 60 mm [place] stapler with white | | | load [...] created in each limb and a 60mm [place] stapler | | | with white load was fired to create a ujjb-oq-hwhr | | | jejunojejunostomy. The anastamosis was confirmed to be widely | | | patent and hemostatic. The common enterotomy was closed by placing | | | 2 stay sutures along the enterotomy for retraction and firing an | | | [place] 60mm stapler with white load across the [...] | | | was entered. The 60mm [place] stapler with blue load was placed | [...] blue load of the 60mm stapler. The [place] was then fired | | | longitudinally towards the angle of His to create the gastric pouch, | | | leaving the gastrotomy from foreign body removal, on the pouch. | | | Dissection was performed retrogastric to connect posterior and | | | anterior dissection planes and ensure adequate fundus exclusion. | | | Additional fires of the [place] stapler were performed with blue | | [...] with | | | 5 mm clip international project manager. A 25mm Orvil was passed transorally by [...] was closed with 60mm | | | [place] stapler with a white load. Medially and [...] present | | | as my assistant reading teacher for the entire procedure, given the technically | | | challenging nature of this procedure. She assisted in all critical | | | steps of the procedure. Dr. Gonzalez was present for endoscopy at the | | | end of the procedure. Ion Castanon MD, FACS, [facility] | | | Bariatric Surgery | [...] NKECHI AMES | [address] | [place], [place] | | | [facility] | [address] | [address] | | | TESTS | | | [...]
--- OUTSIDE RECORDS SUMMARY | ~2019-05-23 | XMS | Encounter Summary ---
Demographics + + + | Address | [address] | | | [place] [address] | + + + | Home Phone [...] [place], [place] | | | | | [address] | | + + + + + | Ellie Vang | ECON | Unknown | | + + + + + Care Team Providers + +------+ + | Care Construction Engineer Name | Role | Phone | [...] Diabetes & | Morbid | Kathy M, OWNER SPA DIRECTOR | [address] | | | | Metabolism | obesity | [address] | | | | | (HCC) | [address], | [address] | | | | | Procedures | [address] | Physician's | | | | | CONSULT TO | [place], [place] | [place] | | | | | ENDO | [address] | Physician's | | | | | [address] | Phone: | Pavilion | | | | | [address] | [phone] | [place], [place] | | | | | | Fax: | [address] | | | | | | [phone] | Phone: | | | | | | | [phone] | | | | | | | Fax: | | | | | | | [phone] | +--------+--------+ + + + + Encounter [...] | | Center at Physicians | [address] [place], [place] | ([facility]) (Primary Dx); | | | | Pavilion [address] | [address] | Type 2 diabetes | | | | [address] | [phone] | mellitus ([facility]); AMARA | | | | Physician's | | (obstructive sleep | | | | Pavilion | | apnea); Morbid | | | | Physician's Pavilion | | obesity ([facility]); | | | | [place], [place] | | Edema; GERD | | | | [address] | | (gastroesophageal | | | | [phone] | | reflux disease) | +--------+---------+ + [...] Goodrich DO Referring physician: Kathy Feldman, KALY[place] [address] [place] [address] HPI: Dylan is a 38 y.o. female [...] 9 CREATININE PLASMA (LAB) 0.71 EGFR - LIBERIAN >60 EGFR NON -LIBERIAN >60 GLUCOSE, PLASMA (LAB) 113 (H) CALCIUM, [...] | | | | | [place], [place] | | | | | | [address] | | | | | | [phone] | | | | | | | [...] | PDT | type 2) ([facility]) | results section. | + +--------+ + + + | ID COLLECTION | Routin | 04/14/2013 | DM type 2 | | | CAPILLARY BLOOD | e | 11:08 AM | (diabetes mellitus, | | | SPECIMEN | | PDT | type 2) ([facility]) | | + +--------+ + + + [...] AMES | [address] | [place], [place] | | | JUST[facility]WN OF JAKY | [address] | [address] | | | TESTS | | | | + + + + + documented in this encounter Visit Diagnoses + + | Diagnosis | + + | DM type 2 (diabetes mellitus, type 2) ([facility]) - Primary Type II or unspecified type [...]
--- OUTSIDE RECORDS SUMMARY | ~2019-05-23 | XMS | Encounter Summary ---
Demographics + + + | Address | [address] | | | [place] [address] | + + + | Home Phone [...] [place], [place] | | | | | [address] | | + + + + + | Ellie Vang | ECON | Unknown | | + + + + + Care Team Providers + +------+ + | Care Grain Operator Name | Role | Phone | [...] | | 2018 | | Center at [facility] [address] | ACNP [address] | | | | | [address] | [place], [place] | | | | | Mailcode: Manning | [address] | | | | | for Health and | [phone] | | | | | [place] [address] | | | | | | [place], [place] | | | | | | [address] | | | | | | [phone] | | | +--------+ + + + [...] | | | | | [address] | | | | | | [address] | | | | | | [phone] | | | | | | | | +--------+ + + + + documented as of this encounter Visit Diagnoses Not on filedocumented in this encounter"
--- OUTSIDE RECORDS SUMMARY | ~2019-05-23 | XMS | Encounter Summary ---
Demographics + + + | Address | [address] | | | [place] [address] | + + + | Home Phone [...] [place], [place] | | | | | [address] | | + + + + + | Ellie Vang | ECON | Unknown | | + + + + + Care Team Providers + +------+ + | Care Apple Packing Header Name | Role | Phone | [...] Visit | Preventive at [facility] | MD [address] | mellitus without | | | | [address] | Ave [place], [place] | complication, with | | | | Mailcode: CH9A | [id number] | long-term current | | | | [facility] | [phone] | use of insulin ([facility]) | | | | and Healing, | | (Primary Dx); | | | | [address] | | Morbid obesity with | | | | [place], [place] | | BMI of 70 and over, | | | | [address] | | adult (HCC) | | | | [phone] | | | +--------+---------+ + + + [...] daily. BELBUCA 300 mcg buccal film CALCIUM CRB&VTX-U7-CHO75-GENIS ORAL Take 2 tablets by mouth two [...] of metformin, and she reports her last lvstf-bh-kqnn A1 c was 5.5% on this dose. [...] CREATININE PLASMA (LAB) 0.85 0.70 EGFR - UZBEK >60 >60 EGFR NON -UZBEK >60 >60 GLUCOSE, PLASMA (LAB) 123 (H) [...] is currently being managed well by her Desktop Support Specialist with diuretics and main tenance of [...] management of her heart failure by her Desktop Support Specialist 3) discontinue metformin 4) check 24 [...] | | 2018 | Visit | | [address] | | | | | | [place], [place] | | | | | | [address] | | | | | | [phone] | | | | | | | [...] + + | [facility] - | [address] | [place] | [phone] | | [place] | | | | [...]
--- OUTSIDE RECORDS SUMMARY | ~2019-05-23 | XMS | Encounter Summary ---
Demographics + + + | Address | [address] | | | [place] [address] | + + + | Home Phone [...] | Author | [facility] (Historical as of | | | 03-12-19) | + + + | Organization | [facility] (Historical as of | | | 03-12-19) [...] Providers + +------+ + | Care Warehouse Stock Clerk Name | Role | Phone | + +------+ + | Kenyatta Cardenas MD | PCP | | + +------+ + Encounter Details +--------+ + + + + | Date | Type | Department | Care Team | Description | +--------+ + + + + | 02/22/ | Ancillary | [facility] | Sulema Altamirano | History of sinus | | 2018 | Procedure | ECHO | SELINA [address] | tachycardia; HTN, | | | | | Ya Islas F | goal below 130/80; | | | | | [place] [address] | Chronic diastolic | | | | | [phone] | heart failure (HCC); | | | [...] Elzbieta Cristina Date of : 1975 | [facility] | | Performing Physician: Darryl Merrill [...] MV A Jeffrey: 0.61 m/s MV Dec Aguada: 2.43 m/s2 | | | MV DecT: 247.51 ms MV E Jeffrey: 0.60 m/s MV E/A Ratio: | | | 0.98 MV PHT: 71.78 ms MVA By PHT: 3.06 cm2 Septal e': | | | 0.06 m/s Septal E/e': 9.54 Lateral e': 0.10 m/s Lateral | | | E/e': 5.84 RAP: 5 mmHg RV s': 0.11 m/s Outpatient Physical Therapist Assistant: | | | DH Authenticated by: Darryl [facility] Report Date/Time: 02-22-2019 | | | 20:8:36 | | + + + + --------+ | Procedure Note | + --------+ | Aditya, Rad Results In - 02/22/2019 8:10 PM PDT Patient Name: Sherrell Cristina | | : 1975Accession: [id number] Physician: Darryl | | Alsamara INDICATIONS------ | [...] cmLVIDd: 4.70 cmLVPWd: 0.79 cmLVOT Area: 3.58 [id number] Diam: 2.13 | | cm%FS: 39.25 %EF(Teich): [...] mlLAESV Index (A-L): 14.72 ml/m2LAAs A2C: 10.03 gz2IROTF A-L A2C: 22.69 | | mlLALs A2C: 3.76 cmLAAs A4C: 13.41 [id number] A-L A4C: 36.80 mlLALs A4C: 4.14 | | cmRAAs: 11.18 [id number] A-L: 22.84 mlRAESV MOD: 22.10 mlRALs: 4.64 cmTAPSE: | | 2.04 cmAV maxP.55 mmHgAV meanP.52 mmHgAV Vmax: 1.27 m/Genesis Vmean: 0.88 | | m/Genesis VTI: 26.50 cmAVA Vmax: 2.49 cm2AVA (VTI): 2.39 [id number] Vmax: 0.00 | | cm2/m2AVAI (VTI): 0.00 cm2/m2LVOT maxP.17 mmHgLVOT meanP.82 mmHgLVSI Dopp: | | 30.83 ml/m2LVSV Dopp: 63.52 mlLVOT Vmax: 0.89 m/sLVOT Vmean: 0.65 m/sLVOT VTI: | | 17.71 cmMV A Jeffrey: 0.61 m/sMV Dec Aguada: 2.43 m/s2MV DecT: 247.51 msMV E Jeffrey: | | 0.60 m/sMV E/A Ratio: 0.98 MV PHT: 71.78 msMVA By PHT: 3.06 xn2Ldpfuf e': 0.06 | | m/sSeptal E/e': 9.54 [...] A Jeffrey: 0.61 m/s | |MV Dec Aguada: 2.43 m/s2 | |MV DecT: 247.51 ms | |MV E Jeffrey: 0.60 m/s | |MV E/A Ratio: 0.98 | |MV PHT: 71.78 ms | |MVA By PHT: 3.06 cm2 | |Septal e': 0.06 m/s | |Septal E/e': 9.54 | |Lateral e': 0.10 m/s | |Lateral E/e': 5.84 | |RAP: 5 mmHg | |RV s': 0.11 m/s | | | |Outpatient Physical Therapist Assistant: JESSICA | |Authenticated by: Darryl Rossyeau claire | |Report Date/Time: 02-22-2019 20:8:36 | | [...] [facility] | [address] | [place] [address] | | + + + + + [...]
--- OUTSIDE RECORDS SUMMARY | ~2019-05-23 | XMS | Encounter Summary ---
Demographics + + + | Address | [address] | | | [place] [address] | + + + | Home Phone [...] + | Katalina Padilla | ECON | [address] | | | | | [place], [place] | | | | | [address] | | + + + + + | Ellie Vang | ECON | Unknown | | + + + + + Care Team Providers + +------+ + | Care Forest Fire Equipment Operator Name | Role | Phone [...] | | 2012 | | Center at [facility] [address] | MD [address] | | | | | [address] | [facility] | | | | | Mailcode: Center | [place], [place] | | | | | [facility] Health and | [address] | | | | | [facility], [facility] 2 | [phone] | | | | | [place], [place] | | | | | | [address] | | | | | | [phone] | | | +--------+ + + + [...] | | | | | [place] [facility] [place] | | | | | | [address] | | | | | | [phone] | | | | | | | | +--------+ + + + + documented as of this encounter Visit Diagnoses Not on filedocumented in this encounter"
--- OUTSIDE RECORDS SUMMARY | ~2019-05-23 | XMS | Encounter Summary ---
Demographics + + + | Address | [address] | | | [place] [address] | + + + | Home Phone [...] [place], [place] | | | | | [address] | | + + + + + | Ellie Vang | ECON | Unknown | | + + + + + Care Team Providers + +------+ + | Care Supervisor Speech Name | Role | Phone | + [...] | | | | | Procedures | [place], [place] | | | | | | TRANSTHORACI | [address] | | | | | | C | Phone: | | | | | | ECHOCARDIOGR | [phone] | | | | | | AM, ADULT | Fax: | | | | | | | [phone] | | +--------+--------+ + + + + [...] | 2016 | Visit | Preventive at [facility] | MD Deion Farris | exertion) (Primary | | | | Deion Farris Avyesenia | [place], [place] | Dx) | | | | Mailcode: CH9A | [address] | | | | | [facility] | [phone] | | | | | and Erick, | | | | | | [address] | | | | | | [place], [place] | | | | | | [address] | | | | | | [phone] | | | +--------+---------+ + + + [...] 500 mg by mouth once daily. CALCIUM CRB&TNN-H3-TBI49-GENIS ORAL Take 1 tablet by mouth two [...] himself to the local hospit al in [place] and so this has been delayed. ROS: [...] to lose the additional weight requested by [facility]. This current [...] | | | | [place], [place] | | | | | | [address] | | | | | | [phone] | | | | | | | [...]
--- OUTSIDE RECORDS SUMMARY | ~2019-05-23 | XMS | Encounter Summary ---
Demographics + + + | Address | [address] | | | [place] [address] | + + + | Home Phone [...] [place], [place] | | | | | [address] | | + + + + + | Ellie Vang | ECON | Unknown | | + + + + + Care Team Providers + +------+ + | Care Core Finisher Name | Role | Phone | [...] | | 2019 | Visit | | [address] | | | | | | [place], [place] | | | | | | [address] | | | | | | [phone] | | | | | | | | +--------+ + + + + documented as of this encounter Visit Diagnoses Not on filedocumented in this encounter"
--- OUTSIDE RECORDS SUMMARY | ~2019-05-23 | XMS | Encounter Summary ---
Demographics + + + | Address | [address] | | | [place] [address] | + + + | Home Phone [...] [place], [place] | | | | | [address] | | + + + + + | Ellie Vang | ECON | Unknown | | + + + + + Care Team Providers + +------+ + | Care Nurse Head Name | Role | Phone | [...] | | | [address] | [facility] | | | | | Mailcode: Center | [place], [place] | | | | | [facility] and | [address] | | | | | [facility], [facility] | [phone] | | | | | [place], [place] | | | | | | [address] | | | | | | [phone] | | | +--------+ + + + [...] | | | | | [place], [place] | | | | | | [address] | | | | | | [phone] | | | | | | | | +--------+ + + + + documented as of this encounter Visit Diagnoses Not on filedocumented in this encounter"
--- OUTSIDE RECORDS SUMMARY | ~2019-05-23 | XMS | Encounter Summary ---
Demographics + + + | Address | [address] | | | [place] [address] | + + + | Home Phone [...] Providers + +------+ + | Care Plastic Design Applier Name | Role | Phone | + [...] [address] | | | | | [place], [place] | [address] | | | 11/12/ | | [address] | [place], [place] | | | 2012 | | [phone] | [address] | | | | | | [phone] | | | | | | | [...] yuriy tral hernia. She was transferred from [place] for surgical evaluation of possible incarcer ated [...] Cipro. POD 5 she was discharged ho nc, tolerating a diabetic diet. Having bowel function. [...] yuriy tral hernia. She was transferred from [place] for surgical evaluation of possible incarcer ated [...] Cipro. POD 5 she was discharged ho n[place], tolerating a diabetic diet. Having bowel function. [...] keeping you from eating and drinking, Call [phone]. It is important to stay hydrated! If [...] taking narcotic that contain Tylenol (acetaminophen) Example: [place], Lortab, Vicodin, hydrocodone/APAP, Percocet, Tylenol #3 PAIN MEDICATIONS are ONLY REFILLED during CLINIC APPOINTMENTS. Please call [phone] to schedule an appointment. Your Follow-Up Plan Follow up with ROBIN MEJIA in 2 weeks. Contact information: [address] [facility] [address] Vitals on discharge: Ht 154.9 cm (5' [...] f rom the original. [facility] DEPARTMENT OF SURGERY EMERGENCY GENERAL [...] clinic [place]. [place] [address] pager number [facility] [phone] [facility] [address] Aminta Goodwin Md - 11/11/2012 7:40 AM PDT [facility] DEPARTMENT OF SURGERY EMERGENCY GENERAL SURGERY Division of Trauma and Critical Care Attending Physician: Andie Brian MD Progress Note Note Date: 11/11/2012 Admission Date: 11/06/2012 DYLAN ROMERO, [id number] Hospital Day #5 INTERVAL EVENTS none acute [...] mg, Rectal, DAILY PRN, Aminta Wilson MD mflsaomyxg-jzixblfmxppwq-xvsvgpql (aka FIORICET) 50-325-40 mg 1 Tab, 1 [...] mg, Oral, BID ( and ), Jayne oPnce MD, 4 0 mg at 11/11/12 0804 [...] Jayne Ponce MD, 1 mg at 11/10/12801 jstxojqyyb-kxryvkzkhdlmc-xngfmokg (aka FIORICET) 50-325-40 mg 1 Tab, 1 [...] in preservative free NaCl 0.9% 50 mL COMB CAPPER infusion, , Intravenous, KIESHA NUGRANT, Aracely Mccartynato, [...] diet -add bowel regimen Acute pain -HM COMB CAPPER, tylenol -convert to oral pain medication once [...] Fluids: LR 125ml/hr Feeding: NPO Analgesia: Dilaudid COMB CAPPER Sedation: not indicated Thromboprophylaxis: enoxaparin Head of [...] Ponce MD, 1 mg at 11/09/12 0855 yghowwlnho-ojkhhscndagtt-nzginuux (aka FIORICET) 50-325-40 mg 1 Tab, 1 [...] in preservative free NaCl 0.9% 50 mL COMB CAPPER infusion, , Intravenous, KIESHA NUOUS, Aracely Cruzo, [...] drainage <30ml for 24hrs Acute pain -HM COMB CAPPER, tylenol Diabetes: -insulin gtt not started due [...] Fluids: LR 125ml/hr Feeding: NPO Analgesia: Dilaudid COMB CAPPER Sedation: not indicated Thromboprophylaxis: enoxaparin Head of bed: > 30 Ulcer prophylaxis: pepcid Glycemic control: adequate Activity/PT/OT: Ongoing Yogurt: ABX on Probiotics:yes AMINTA WILSON MD General Surgery, R1 Kaleb Martin N P - 11/08/2012 8:49 AM PDT [facility] DEPARTMENT OF SURGERY EMERGENCY GENERAL SURGERY Division of Trauma and Critical Care Attending Physician: Andie Brian MD Progress Note Note Date: 11/08/2012 Admission Date: 11/06/2012 DYLAN ROMERO, [id number] Hospital Day #2 INTERVAL EVENTS NO SUBJECTIVE Pain well controlled; has headache attributed to dilaudid COMB CAPPER Tylenol did not help. Flatus: YES Tolerating [...] trials today. -DC ruiz Acute pain -HM COMB CAPPER, tylenol Diabetes: -insulin gtt not started due [...] Fluids: LR 125ml/hr Feeding: NPO Analgesia: Dilaudid COMB CAPPER Sedation: not indicated Thromboprophylaxis: enoxaparin Head of bed: > 30 Ulcer prophylaxis: pepcid Glycemic control: adequate Activity/PT/OT: Ongoing Yogurt: ABX on Probiotics: No KALEB WALKER NP [facility] [address] [place] [address] elvin Stephens MD - 11/07/2012 9:51 PM [...] 7.33* PCO2 49* PO2 113* HCO3 25 VKVPR6NFV 26 I5KVDTBN 98.3* V4SHTRUXM -- FIO2 60 ABGEXCESS -0.9 Assessment, Medical Decision Making and Plan 1. Incarcerated hernia, now s/p repair and panniculectomy -Binder, pain control, minimize nausea and coughing PRN. -NG clamping trials today. 2. Acute pain -HM COMB CAPPER, tylenol 3. Diabetes: -insulin gtt 4. Morbid [...] Dione Grimes MD R-2, General Surgery Pager: [phone] [facility] [place] Department of Surgery Trauma ICU Team Pager (24hrs/day): [phone] I was present with the resident during the history and exam. I discussed the case with the resident and agree with the findings and plan as documented in the resident s note. KELVIN STEPHENS MD [facility] [address] [place] [address] [id number] uOnur patton MD - 11/07/2012 2:37 AM [...] in preservative free NaCl 0.9% 50 mL COMB CAPPER infusion Intravenous CON TINUOUS Aracely Flores, DO [...] at 11/06/12 2353 Assessment & Plan: Dylan Rmoero is a 37 y.o. Morbidly obese female who presented with an incarcerated vent ral hernia who is now POD#1 s/p primary repair. 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 weather forecaster and prn tylenol, continue prozac and zyprexa [...] F: probable remain NPO today A: dilaudid weather forecaster, prn tylenol S: prn benzos as she is at home T: will start prophylactic lovenox today H: HOB >30 degrees U: pepcid G: insulin gtt ONUR ALLEN MD, PGY3 [facility] [address] [id number] [place] [address] Onelia Shrestha MD - 11/06/2012 8:41 AM PDT [facility] DEPARTMENT OF SURGERY Division of Trauma and Critical Care Emergency General Surgery / Acute Care Surgery Attending Physician: Andie Brian MD Note Date: 11/06/2012 Admission Date: 11/06/2012 DYLAN ROMERO, [id number] Hospital Day #0 OVERNIGHT EVENTS: anxious SUBJECTIVE: [...] zenia LABS: reviewed and are available in [employer] (if new data) IMAGING: VASCULAR: IMPRESSION: [...] | | 2018 | Visit | | [address] | | | | | | [place], [place] | | | | | | [address] | | | | | | [phone] | | | | | | | [...] Mae | | | | | | [place] | | | | + + + [...] AMES | [address] | [place], [place] | | | [place] POINT OF CARE | [address] | [address] | | | TESTS | | | [...] MARQUAM | [address] | [place], [place] | | | JUSTINE DAWN OF CARE | [facility] | [address] | | | TESTS | | | [...] [facility] | [address] | [place] [address] | | | SERVICES, CORE | PARK [...] | [facility] | [address] | [place] [address] | | | SERVICES, CORE | CLARENCE [...] | [facility] | [address] | [place] [address] | | | LYDIA RANGEL | PARK [...] - MARQUAM | [address] | [place], [place] | | | [facility] [facility]WN OF CARE | [facility] | [address] | | | TESTS | | | [...] (H) | 60 - 99 mg/dL | [facility] - | | | GLUCOSE, [...] YAKOVAM | [address] | [place], [place] | | | [place] POINT OF CARE | [address] | [address] | | | TESTS | | | [...] AMES | [address] | [place], [place] | | | JUSTINE DAWN OF JAKY | [facility] | [address] | | | TESTS | | | [...] - MARQUAM | [address] | [place], [place] | | | [facility] [facility]WN OF CARE | [facility] | [address] | | | TESTS | | | [...] (H) | 60 - 99 mg/dL | [facility] - | | | GLUCOSE, [...] + + | [facility] | [address] | [place], [place] | | | [facility] | [address] | [address] | | | TESTS | | | [...] [facility] | [address] | [place] [address] | | | SERVICES, CORE | PARK [...] [facility] | [address] | [place] [address] | | | LYDIA RANGEL | CLARENCE [...] [facility] | [address] | [place] [address] | | | SERVICES, CORE | CLARENCE [...] (H) | 60 - 99 mg/dL | [facility] - | | | GLUCOSE, [...] AMES | [address] | [place], [place] | | | [place] POINT OF CARE | [address] | [address] | | | TESTS | | | [...] KWAKU | [address] | [place], [place] | | | JUST[place] DAWN OF JAKY | [address] | [address] | | | TESTS | | | [...] KWAKU | [address] | [place], [place] | | | JUST[place] DAWN OF JAKY | [facility] | [address] | | | TESTS | | | [...] (H) | 60 - 99 mg/dL | [facility] - | | | GLUCOSE, [...] AMES | [address] | [place], [place] | | | [place] POINT OF CARE | [address] | [address] | | | TESTS | | | [...] KWAKU | [address] | [place], [place] | | | JUSTINE DAWN OF JAKY | [address] | [address] | | | TESTS | | | [...] | [facility] | [address] | [place] [address] | | | SERVICES, CORE | PARK [...] [facility] | [address] | [place] [address] | | | SERVICES, CORE | PARK [...] | + + + + + | [employer] | [address] | [place] [address] | | | SERVICES, CORE | CLARENCE [...] MARQUAM | [address] | [place], [place] | | | JUSTINE DAWN OF CARE | [address] | [address] | | | TESTS | | | [...] MARPATAM | [address] | [place], [place] | | | [place] POINT OF CARE | [address] | [address] | | | TESTS | | | [...] AMES | [address] | [place], [place] | | | JUSTINE DAWN OF CARE | [facility] | [address] | | | TESTS | | | [...] | SOURCE BODY | Urine | | [facility] - | | | SITE | | | AIRPORT - | | | | | | [place] | | + + + + + + | CULTURE | C UrineSource: Urine | | [facility] - | | | RESULT | | | AIRPORT - | | | | Final CULTURE | | [place] | | | | RESULT:>100,000 cfu/ml | [...] + | [facility] - AIRPORT - | [address] | [place] [address] | | | [place] | | | | + + + [...] | + + + + + | [employer] | [address] | [place] [address] | | | SERVICES, CORE | CLARENCE [...] [facility] | [address] | [place] [address] | | | LYDIA RANGEL | CLARENCE [...] 90 | 60 - 99 mg/dL | [facility] - | | | GLUCOSE, [...] AMES | [address] | [place] | | | [facility] | [address] | [address] | | | TESTS | | | [...] | [facility] | [address] | [place] [address] | | | LYDIA RANGEL | CLARENCE [...] [facility] | [address] | [place] [address] | | | SERVICES, CORE | CLARENCE [...] MEDICAL CENTER | [address] | [place] [address] | | | [facility] | [address] | | | + + + + + CAPILLARY BLOOD GLUCOSE (NO CHG), POC (11/09/2012 12:15 AM PDT) + +-------+ + + + | Component | Value | Ref Range | Performed | Pathologist | | | | | At | Signature | + +-------+ + + + | BLOOD | 86 | 60 - 99 mg/dL | [facility] - | | | GLUCOSE, [...] KWAKU | [address] | [place], [place] | | | [place] POINT OF CARE | [address] | [address] | | | TESTS | | | [...] Performing | Address | City[facility] | Phone Number | | Organization | | | | + + + + + | N[facility] AMES | [address] | [place], [place] | | | JUSTINE DAWN OF JAKY | [facility] | [address] | | | TESTS | | | [...] KWAKU | [address] | [place], [place] | | | [facility] | [facility] | [address] | | | TESTS | | | [...] | + + + + + | [facility] | [address] | [place] [address] | | | SERVICES, CORE | [address] | | | + + + + + MAGNESIUM, PLASMA (11/08/2012 7:48 AM PDT) + +---------+ + + + | Component | Value | Ref Range | Performed | Pathologist | | | | | At | Signature | + +---------+ + + + | MAGNESIUM,P | 1.4 (L) | 1.8 - 2.5 mg/dL | [facility] | | | LASMA | | | [...] [facility] | [address] | [place] [address] | | | SERVICES, CORE | PARK [...] | + + + + + | [employer] | [address] | [place] [address] | | | CLAIRE, CORE | CLARENCE [...] KWAKU | [address] | [place], [place] | | | JUSTINE DAWN OF CARE | [facility] | [address] | | | TESTS | | | | + + + + + CAPILLARY BLOOD GLUCOSE (NO CHG), POC (11/07/2012 11:53 PM PDT) + +-------+ + + + | Component | Value | Ref Range | Performed | Pathologist | | | | | At | Signature | + +-------+ + + + | BLOOD | 94 | 60 - 99 mg/dL | [facility] - | | | GLUCOSE, [...] KWAKU | [address] | [place] | | | [place] POINT OF CARE | [address] | [address] | | | TESTS | | | [...] AMES | [address] | [place], [place] | | | JUSTINE DAWN OF JAKY | [facility] | [address] | | | TESTS | | | [...] MEDICAL CENTER | [address] | [place] [address] | | | SERVICES, LYDIA | CLARENCE [...] [facility] | [address] | [place] [address] | | | SERVICES, CORE | CLARENCE [...] KALEY ALEJANDRA | [address] | [place] [address] | | | SERVICES, CORE | PARK [...] Radiologists: | | | | | | NAA DE LA FUENTE | | | | [...] | | + +---------+ + + | [facility] DEPARTMENT OF | | | [...] [facility] | [address] | [place] [address] | | | SERVICES, CORE | PARK [...] [facility] | [address] | [place] [address] | | | SERVICES, CORE | PARK [...] [facility] | [address] | [place] [address] | | | SERVICES, CORE | CLARENCE [...] (H) | 60 - 99 mg/dL | [facility] - | [...] AMES | [address] | [place], [place] | | | ABRAHAN DAWN | [facility] | [address] | | | TESTS | | | [...] AMES | [address] | [place], [place] | | | JUSTINE DAWN OF JAKY | [facility] | [address] | | | TESTS | | | [...] KWAKU | [address] | [place], [place] | | | JUSTINE DAWN OF CARE | [facility] | [address] | | | TESTS | | | [...] - [facility] | [address] | [place] | | | JUSTINE DAWN OF CARE | [facility] | [address] | | | TESTS | | | [...] + + + | [facility] AMES | [address] | [place] | | | [place] POINT OF CARE | [address] | [address] | | | TESTS | | | [...] MARQU[facility] | [address] | [place] | | | [place] POINT OF CARE | [address] | [address] | | | TESTS | | | [...] - [facility] | [address] | [place], [place] | | | JUSTINE DAWN OF CARE | [address] | [address] | | | TESTS | | | [...] AMES | [address] | [place] | | | JUSTINE DANW OF CARE | [address] | [address] | | | TESTS | | | [...] MAR[facility] | [address] | [place], [place] | | | L[place] POINT OF CARE | [facility] | [address] | | | TESTS | | | [...] [facility] | [address] | [place], [place] | | | JUSTINE DAWN OF CARE | [address] | [address] | | | TESTS | | | [...] AMES | [address] | [place] | | | JUSTINE DAWN OF JAKY | [facility] | [address] | | | TESTS | | | [...] [facility] | [address] | [place] [address] | | | SERVICES, | [address] [...] (H) | 60 - 99 mg/dL | [facility] - | | | GLUCOSE, [...] AMES | [address] | [place], [place] | | | [place] [facility] CARE | [address] | [address] | | | TESTS | | | [...] [facility] | [address] | [place] [address] | | | SERVICES, | [address] [...] [facility] | [address] | [place] [address] | | | SERVICES, | [address] [...] [facility] | [address] | [place] [address] | | | SERVICES, CORE | CLARENCE [...] [facility] | [address] | [place] [address] | | | SERVICES, CORE | PARK [...] [facility] | [address] | [place] [address] | | | SERVICES, CORE | PARK [...] [facility] | [address] | [place] [address] | | | SERVICES, CORE | PARK [...] the MDRD equation recommended by the | [facility] | | National Kidney Disease [...] | [facility] | [address] | [place] [address] | | | LYDIA RANGEL | PARK [...] view image for the detailed interpretation from [employer] results. | CARDIOLOGY | + + + + + + + + | Performing | Address | City/State/Zipcode | Phone Number | | Organization | | | | + + + + + | [facility] | [address] | [place], [place] | | | CARDIOLOGY | [address] | [address] | | + + + + + [...] LABORATORY | [address] | [place] [address] | | | SERVICES, CORE | CLARENCE [...] LABORATORY | | | | | | CLAIER, | | | | | | CORE [...] | + + + + + | [facility] | [address] | [place] [address] | | | SERVICES, CORE | CLARENCE [...] | 1 tablet | | | | dwkdborlsi-zzoenktkzejwu-nkwwmlkg | | 13 8:02 | | | [...] 13 7:36 | | | | | COMB CAPPER infusion intravenous, | | PM PDT | [...] PDT | | | | | Until [facility] 11/11/12 at 0702 | | [...]
--- OUTSIDE RECORDS SUMMARY | ~2019-05-23 | XMS | Encounter Summary ---
Demographics + + + | Address | [address] | | | [place] [address] | + + + | Home Phone [...] [place], [place] | | | | | [address] | | + + + + + | Ellie Vang | ECON | Unknown | | + + + + + Care Team Providers + +------+ + | Care Inside Sales Account Representative Name | Role | Phone | [...] | | | | | (HCC) | [place], [place] | Mailcode: | | | | | Procedures | [address] | [address] [facility] | | | | | CT ABDOMEN & | Phone: | Hospital | | | | | PELVIS WWO | | [place], [place] | | | | | IV CONTRAST | Fax: | [address] | | | | | [place] | [phone] | Phone: | | | | | ABDOMEN&PELV | | [phone] | | | | | IS | | Fax: | | | | | W/CONTRAST | | [phone] | | | | | See chart [...] | | | | | | [address] | | | | | | | [address] | | | | | | | Mailcode: | | | | | | | [facility] | | | | | | | Health and | | | | | | | Healing, | | | | | | | Building 2 | | | | | | | [place], [place] | | | | | | | [address] | | | | | | | Phone: | | | | | | | [phone] | | | | | | | Fax: | | | | | | | [phone] | +--------+--------+ + + + + Encounter [...] | | [address] | Ave [place], [place] | obesity (HCC) | | | | Mailcode: [place] | [address] | | | | | for Health and | [phone] | | | | | [facility] 2 | | | | | | [place], [place] | | | | | | [address] | | | | | | [phone] | | | +--------+---------+ + + + [...] in th e air, Use a hair blender.... And get it really dry. Then use corn starch ..... Then use medicated powder... Please go to the 3rd floor for the study... [place] [address] documented in this encounter Progress Notes Shereen Pinto ACNP - 10/02/2014 11:14 AM PDTFormatting of this note might be different fro m the original. BARIATRIC INITIAL VISIT Provider: Shereen Pinto DNP, ACNP, OVERHEAD DISTRIBUTION ENGINEER Referring Provider: Dr. Goodrich Reason for Requested [...] which I have declined. 3. Bariatric Surgery: lEzbieta has been involved with our program for [...] with the surgeon. Shereen Pinto DNP, ACNP, OVERHEAD DISTRIBUTION ENGINEER Nurse Practitioner for Bariatric Surgery [facility] | [address] | [place], [place] | [address] | Potential Contraindications to Bariatric Surgery Age [...] other providers does not guarantee that the [facility] Bariatric Surger y program [...] [place] | | | | | | [address] | | | | | | [phone] | | | | | | | [...]
--- OUTSIDE RECORDS SUMMARY | ~2019-05-23 | XMS | Encounter Summary ---
Demographics + + + | Address | [address] | | | [place] [address] | + + + | Home Phone [...] [place], [place] | | | | | [address] | | + + + + + | Ellie Vang | ECON | Unknown | | + + + + + Care Team Providers + +------+ + | Care Test Tech Name | Role | Phone | [...] Diabetes & | Morbid | Kathy M, [employer] | [address] | | | | Metabolism | obesity | [address] | [address] | | | | | (HCC) | [address], | [address] | | | | | Procedures | [address] | Physician's | | | | | CONSULT TO | [place], [place] | [place] | | | | | ENDO | [address] | Physician's | | | | | [address] | Phone: | Pavilion | | | | | [address] | [phone] | [place], [place] | | | | | | Fax: | [address] | | | | | | [phone] | Phone: | | | | | | | [phone] | | | | | | | Fax: | | | | | | | [phone] | +--------+--------+ + + + + Encounter [...] | | [facility] | Ave [place], [place] | ([facility]) (Primary Dx); | | | | Pav[address] | [address] | Type 2 diabetes | | | | [address] | [phone] | mellitus ([facility]); AMARA | | | | Physician's | | (obstructive sleep | | | | Pavilion | | apnea); Morbid | | | | Physician's Pavilion | | obesity ([facility]); | | | | [place], [place] | | Edema; GERD | | | | [address] | | (gastroesophageal | | | | [phone] | | reflux disease) | +--------+---------+ + [...] Goodrich DO Referring physician: Kathy Feldman, KALYAN [address] [place] [address] HPI: Dylan is a 38 y.o. female [...] 9 CREATININE PLASMA (LAB) 0.71 EGFR - P[place] >60 EGFR NON -P[place] >60 GLUCOSE, PLASMA (LAB) 113 (H) [...] | | | | | [address] [place], [place] | | | | | | [address] | | | | | | [phone] | | | | | | | [...] | | | PDT | type 2) ([facility]) | results section. | + +--------+ + + + | PA COLLECTION | Routin | 04/14/2013 | DM type 2 | | | CAPILLARY BLOOD | e | 11:08 AM | (diabetes mellitus, | | | SPECIMEN | | PDT | type 2) ([facility]) | | [...] AMES | [address] | [place], [place] | | | JUSTINE [facility] JAK[facility] | [address] | [address] | | | TESTS | | | | + + + + + documented in this encounter Visit Diagnoses + + | Diagnosis | + + | DM type 2 (diabetes mellitus, type 2) ([facility]) - Primary Type II or unspecified [...]
--- OUTSIDE RECORDS SUMMARY | ~2019-05-23 | XMS | Encounter Summary ---
Demographics + + + | Address | [address] | | | [place] [address] | + + + | Home Phone [...] [place], [place] | | | | | [address] | | + + + + + | Ellie Vang | ECON | Unknown | | + + + + + Care Team Providers + +------+ + | Care Steward/Stewardess Wine Name | Role | Phone | + +------+ + | Fadi Goodrich DO | PCP | | + +------+ + Encounter Details +--------+------+ + + + | Date | Type | Department | Care Team | Description | +--------+------+ + + + | 11/20/ | Lab | Laboratory at [facility] | | 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 | | [address] | | BMI of 70 and over, | | | | [place], [place] | | adult ([facility]); | | | | [address] | | 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 | | | | | 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| | 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 ([facility]) | | + +--------+ + + + | VITAMIN B1, WHOLE | Routin | 11/20/2017 | Morbid obesity | Results for this | | BLOOD | e | 10:01 AM | with BMI of 70 and | procedure are in the | | | | PDT | over, adult ([facility]) | results section. | | | | | 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| | 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 ([facility]) | | + +--------+ + + + | VITAMIN D, | Routin | 11/20/2017 | Morbid obesity | Results for this | | 25-HYDROXY, SERUM | e | 10:01 AM | with BMI of 70 and | procedure are in the | | | | PDT | over, adult ([facility]) | results section. | | | | | 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| | 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 ([facility]) | | + +--------+ + + + | COMPLETE METABOLIC | Routin | 11/20/2017 | Morbid obesity | Results for this | | SET | e | 10:01 AM | with BMI of 70 and | procedure are in the | | (NA,K,CL,CO2,BUN,CRE | | PDT | over, adult ([facility]) | results section. | | AT,GLUC,CA,AST,ALT,B | | | Diabetes mellitus | | | MARGIE TOTAL,ALK | | | type 2 without | | | PHOS,ALB,PROT TOTAL) |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 ([facility]) | | + +--------+ + + + | CBC ONLY | Routin | 11/20/2017 | Morbid obesity | Results for this | | | e | 10:01 AM | with BMI of 70 and | procedure are in the | | | | PDT | over, adult ([facility]) | results section. | | | | | 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| | 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 ([facility]) | | + +--------+ + + + | FERRITIN | Routin | 11/20/2017 | Morbid obesity | Results for this | | | e | 10:01 AM | with BMI of 70 and | procedure are in the | | | | PDT | over, adult ([facility]) | results section. | [...] | PDT | over, adult ([facility]) | results section. | [...] | PDT | over, adult ([facility]) | results section. | [...] LABORATORY | [address] | [place] [address] | | | [facility] | | | | | HEALTH + [...] | + + + + + | [facility] | [address] | [place], [place] | | | SERVICES, LIPID | [address] | [address] | | + + + + + [...] [facility] | | considered for monitoring watermelon inspector glycemic control in patients with: | [...] + + | [facility] | [address] [facility] | [place] [address] | | | SERVICES, SPECIAL | [address]ARK [...] B: | | | | | | [email or web address] | | | | | | by [employer],[address] | | | | | | Natalia Martinez, [facility] [place] | | | | | | [address] | | | | | | [phone]. | | | | | | salt [...] [facility] | [address] | [place], [place] | | | [facility] | | [address] | | + + + + + [...] | [facility] | [address] | [place] [address] | | | SERVICES, CORE | CLARENCE [...] [facility] | [address] | [place] [address] | | | SERVICES, CORE | PARK [...] [facility] | [address] | [place] [address] | | | SERVICES, CORE | PARK [...] | + + + + + | [facility] | [address] | [place] [address] | | | SERVICES, CORE | CLARENCE [...] [facility] | [address] | [place] [address] | | | SERVICES, CORE | PARK [...] | + + + + + | [facility] | [address] | [place] [address] | | | SERVICES, CORE | CLARENCE [...]
--- OUTSIDE RECORDS SUMMARY | ~2019-05-23 | XMS | Encounter Summary ---
Demographics + + + | Address | [address] | | | [place] [address] | + + + | Home Phone [...] [place], [place] | | | | | [address] | | + + + + + | Ellie Vang | ECON | Unknown | | + + + + + Care Team Providers + +------+ + | Care Bit Tapper Name | Role | Phone | + [...] | | | [address] | [facility] | | | | | Mailcode: Center | [place], [place] | | | | | [facility] and | [address] | | | | | [facility], [facility] 2 | [phone] | | | | | [place], [place] | | | | | | [address] | | | | | | [phone] | | | +--------+ + + + [...] | | | | | [address] [place], [place] | | | | | | [address] | | | | | | [phone] | | | | | | | | +--------+ + + + + documented as of this encounter Visit Diagnoses Not on filedocumented in this encounter"
--- OUTSIDE RECORDS SUMMARY | ~2019-05-23 | XMS | Encounter Summary ---
Demographics + + + | Address | [address] | | | [place] [address] | + + + | Home Phone [...] [place], [place] | | | | | [address] | | + + + + + | Ellie Vang | ECON | Unknown | | + + + + + Care Team Providers + +------+ + | Care Election Supervisor Name | Role | Phone | [...] | | 2019 | Visit | | [address] | | | | | | [place], [place] | | | | | | [address] | | | | | | [phone] | | | | | | | | +--------+ + + + + documented as of this encounter Visit Diagnoses Not on filedocumented in this encounter"
--- OUTSIDE RECORDS SUMMARY | ~2019-05-23 | XMS | Encounter Summary ---
Demographics + + + | Address | [address] | | | [place] [address] | + + + | Home Phone [...] [place], [place] | | | | | [address] | | + + + + + | Ellie Vang | ECON | Unknown | | + + + + + Care Team Providers + +------+ + | Care Base Manager Name | Role | Phone | [...] | | 2018 | | [facility] | [address] | | | | | Admitting Desk | [place], [place] | | | | | Located on the | [address] | | | | | floor [address] [facility] | [phone] | | | | | [address] | | | | | | [place], [place] | | | | | | [address] | | | +--------+---------+ + + + [...] the endoscopy department toll free ext. [phone] or After business hours or on weekends and holiday Hospital Terminal Supervisor toll free [phone] ext. [phone] and have the GI doctor group segment consultant paged. The provider who performed your procedure [...] | | 0 | | | | CRB&GKN-[id number]-[id number]-GEN | mouth two times | | | [...] 2:35 PM PST PRE PROCEDURE NOTE: MR# [id number] Subjective: Elzbieta Cristina is a 43 y.o. [...] | | | | | [address] [place], [place] | | | | | | [address] | | | | | | [phone] | | | | | | | [...] -----+ | MRN: Analisa ARBOLEDA | | [id number] Date: 06/23/2018Patient Name: Elzbieta Curtis #: | ENDOSCOP Y | | [id number] of : 1975CSN: [id number] Type: | | | AmbulatoryRoom: SORProcedure: Upper GI | | | endoscopyIndications: Nausea with vomiting, Status post | | | Gdax-eo-HZpglpyfji: KALEB WILCOX MD (Doctor), JOSE | | | NASIMA, Botany Laboratory Assistant | | | (Botany Laboratory Assistant)Referring MD: DANIELLE GARCÍAPRemateusz | | | Provider: [...] | | | The Olympus [id number] Gastroscope #[id number] was | | | introduced through the [...] endoscope without resistance. The | | | eesjl-ga-hfaauma limb was characterized by healthy appearing | [...] Initiated On: | | | 06/23/2018 3:58 [facility] Letter to: FADI GOODRICH DO [...] AMES | [address] | [place], [place] | | | [address] POINT OF CARE | [address] | [address] | | | TESTS | | | [...] | | | 1324, Until [facility] 06/24/18 at 0027, | | | sore [...] | | at 1330, Until [facility] 06/24/18 at | | | 0027 | | + +---+ | | | + +---+ documented in this encounter"
--- OUTSIDE RECORDS SUMMARY | ~2019-05-23 | XMS | Encounter Summary ---
Demographics + + + | Address | [address] | | | [place] [address] | + + + | Home Phone [...] [place], [place] | | | | | [address] | | + + + + + | Ellie Vang | ECON | Unknown | | + + + + + Care Team Providers + +------+ + | Care Metallurgical Analyst Name | Role | Phone | [...] [place] | | | | | | [address] | [address] | | | | | | [address], | Ave | | | | | | [address] | [place], [place] | | | | | | [place], [place] | [address] | | | | | | [address] | Phone: | | | | | | Phone: | [phone] | | | | | | [phone] | Fax: | | | | | | Fax: | [phone] | | | | | | [phone] | | +--------+--------+ + + + + Encounter Details +--------+---------+ + + + | Date | Type | Department | Care Team | Description | +--------+---------+ + + + | 08/29/ | Office | Cardiology | Randell Franks, | HTN (hypertension) | | 2013 | Visit | Preventive at [facility] | MD [address] | (Primary Dx); 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[place], [place]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 | | | | Mailcode: [facility] | [address] | ([facility]); Morbid | | | | [facility] | [phone] | obesity (HCC) | | | | and Healing, | | | | | | Building [address] | | | | | | [place], [place] | | | | | | [address] | | | | | | [phone] | | | +--------+---------+ + + + [...] original. Reason for visit: Follow-up T2DM PCP: Faid Goodrich DO Problem List: Patient Active Problem [...] | | 2019 | Visit | | [address] | | | | | | [place], [place] | | | | | | [address] | | | | | | [phone] | | | | | | | [...]
--- OUTSIDE RECORDS SUMMARY | ~2019-05-23 | XMS | Encounter Summary ---
Demographics + + + | Address | [address] | | | [place] [address] | + + + | Home Phone [...] [place], [place] | | | | | [address] | | + + + + + | Ellie Vang | ECON | Unknown | | + + + + + Care Team Providers + +------+ + | Care Medical Attendant Name | Role | Phone | [...] | 2012 | | Center at [facility] [address] | MD [address] | | | | | [address] | [facility] | | | | | Mailcode: Center | [place], [place] | | | | | [facility] and | [address] | | | | | [facility], [facility] 2 | [phone] | | | | | [place], [place] | | | | | | [address] | | | | | | [phone] | | | +--------+ + + + [...] [place] | | | | | | [address] | | | | | | [phone] | | | | | | | | +--------+ + + + + documented as of this encounter Visit Diagnoses Not on filedocumented in this encounter"
--- OUTSIDE RECORDS SUMMARY | ~2019-05-23 | XMS | Encounter Summary ---
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 | | hypertension | [address] | [address] | | | | | Right | [address] | [address] | | | | | heart | [place], [place] | [place], | | | | | failure | [address] | [place] | | | | | ([facility]) Type | Phone: | [address] | | | | | 2 diabetes | [phone] | | | | | | mellitus | Fax: | | | | | | without | [phone] | | | | | | complication | | | | | | | , with | | | | | | | long-term | | | | | | | current use | | | | | | | of insulin | | | | | | | ([facility]) | | | +--------+ + + + + + Encounter Details +--------+---------+ + + + | Date | Type | Department | Care Team | Description | +--------+---------+ + + + | 02/02/ | Office | Digestive Health | [address] | Morbid obesity with | | 2017 | Visit | Center at [facility] [address] | [address] | BMI of 70 and over, | | | | [address] | Les[address] Gutiérrez [place], | adult ([facility]) (Primary | | | | Mailcode: Center | [place] [address] | Dx); Type 2 | | | | for Health and |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 | | | | Healing, Building [address] | | without | | | | [place], [place] | | complication, with | | | | [address] | | long-term current | | | | [phone] | | use of insulin | | | | | | ([facility]); Chronic | | | | | | diastolic heart | | | | | | failure ([facility]) | +--------+---------+ + + + Social History [...] of Visit: 10:03 to 10:30 (27 minutes hpmh-vr-dggp with patient) (1 hour ap point not [...] eat like she should, tries to eat rough carpenter things and this does not help. Food [...] Bipolar disorder ([facility]) Chronic wound infection of abdomen from 2010 Cough Depression Diverticulitis of colon Dizziness Glaucoma Heart burn Hemorrhoids Hernia of abdominal wall Incisional hernia, incarcerated 2012 Insomnia Irregular periods Kidney stone Leaking of urine Leg sore Lymphedema Morbid obesity with body mass index of 70 and over in adult ([facility]) Myalgia and myositis Nausea Neck pain Numbness Osteoarthritis of knee Palpitations Pneumonia Shortness of breath Staphylococcal infection Stroke ([facility]) 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 4. Call or send Ventealapropriete message to dietitian with any questions. Contact information was provided. Follow up with dietitian prior to surgery (take 2 Weight management classes as part of 6 mo [facility] supervised diet). [address], [facility], LD [facility] Bariatrics [phone] documented in this enco unter Plan of [...] | | 2019 | Visit | | [address] | | | | | | [place] [facility] [place] | | | | | | [address] | | | | | | [phone] | | | | | | | | +--------+ + + + + documented as of this encounter Procedures + +--------+ + + + | Procedure Name | Priori | Date/Time | Associated Diagnosis | Comments | | | ty | | | | + +--------+ + + + | [place] MNT RE-ASSESSMNT | Routin | 02/02/2017 | Morbid obesity | | | X15MIN | e | 12:04 PM | with BMI of 70 and | | | | | PDT | over, adult ([facility]) | | | | | | Type 2 diabetes | | | | | | mellitus without | | | | | | complication, with | | | | | | long-term current | | | | | | use of insulin ([facility]) | | | | | | Chronic diastolic | | | | | | heart failure ([facility] [...]
--- OUTSIDE RECORDS SUMMARY | ~2019-05-23 | XMS | Encounter Summary ---
Demographics + + + | Address | [address] | | | [place] [address] | + + + | Home Phone [...] [place], [place] | | | | | [address] | | + + + + + | Ellie Vang | ECON | Unknown | | + + + + + Care Team Providers + +------+ + | Care Coal Shooter Name | Role | Phone | [...] | | | | | essential | [address] | [address] | | | | | hypertension | [address], | Ave | | | | | Type II or | [address] | [place], [place] | | | | | unspecified | [place], [place] | [address] | | | | | type | [address] | Phone: | | | | | diabetes | Phone: | [phone] | | | | | mellitus | [phone] | Fax: | | | | | without | Fax: | [phone] | | | | | mention of | [phone] | | | | | | complication [...] | 2013 | Visit | Preventive at [facility] | [address] | mellitus (HCC) | | | | [address] | Ave [place], [place] | (Primary Dx); | | | | Mailcode: 9A | [address] | Migraine headache | | | | [facility] | [phone] | | | | | and [place]rick, | | | | | | Building [address] | | | | | | [place], [place] | | | | | | [address] | | | | | | [phone] | | | +--------+---------+ + + + [...] she is hypothyroid and put her on [place] Thyroid hormone replacement therapy. Her heart rate [...] | | 2018 | Visit | | [address] | | | | | | [place], [place] | | | | | | [address] | | | | | | [phone] | | | | | | | [...] | + + + + + | [employer] | [address] | [place] [address] | | | SERVICES, SPECIAL | PARK [...]
--- OUTSIDE RECORDS SUMMARY | ~2019-05-23 | XMS | Encounter Summary ---
Demographics + + + | Address | [address] | | | [place] [address] | + + + | Home Phone [...] [place], [place] | | | | | [address] | | + + + + + | Ellie Vang | ECON | Unknown | | + + + + + Care Team Providers + +------+ + | Care Planing Machine Operator Name | Role | Phone [...] | 2013 | | Center at [facility] [address] | BODY MECHANIC [address] | | | | | [address] | [facility] [address] | | | | | Mailcode: Center | [place], [place] | | | | | for Health and | [address] | | | | | [facility] 2 | [phone] | | | | | [place], [place] | | | | | | [address] | | | | | | [phone] | | | +--------+ + + + [...] | | | | | [address] [place], [place] | | | | | | [address] | | | | | | [phone] | | | | | | | | +--------+ + + + + documented as of this encounter Visit Diagnoses Not on filedocumented in this encounter"
--- OUTSIDE RECORDS SUMMARY | ~2019-05-23 | XMS | Encounter Summary ---
Demographics + + + | Address | [address] | | | [place] [address] | + + + | Home Phone [...] [place], [place] | | | | | [address] | | + + + + + | Ellie Vang | ECON | Unknown | | + + + + + Care Team Providers + +------+ + | Care Hydrocrane Operator Name | Role | Phone | [...] | | bypass | [place], [place] | [facility] Center | | | | | Nausea and | [address] | for Health | | | | | vomiting, | Phone: | and Healing, | | | | | intractabili | | Building 2 | | | | | ty of | Fax: | [place], [place] | | | | | vomiting not | [phone] | [address] | | | | | specified, | | Phone: | | | | | unspecified | | [phone] | | | | | vomiting | | Fax: | | | | | type | | [phone] | | | | | Decreased | [...] | | | | | | [place] | | | | | | | UPPER GI | | | | | | | ENDOSCOPY,BI | | | | | | | OPSY [place] | | | | | | [...] 2017 | | Center at [facility] [address] | MD [address] | | | | | [address] | [place], [place] | | | | | Mailcode: [place] | [address] | | | | | for Health and | | | | | | [place] [address] | | | | | | [place], [place] | | | | | | [address] | | | | | | [phone] | | | +--------+ + + + [...] [place] | | | | | | [address] | | | | | | [phone] | | | | | | | [...]
--- OUTSIDE RECORDS SUMMARY | ~2019-05-23 | XMS | Encounter Summary ---
Demographics + + + | Address | [address] | | | [place] [address] | + + + | Home Phone [...] [place], [place] | | | | | [address] | | + + + + + | Ellie Vang | ECON | Unknown | | + + + + + Care Team Providers + +------+ + | Care Dye Jig Operator Name | Role | Phone [...] | 2018 | Visit | Preventive at [facility] | MD Deion Farris | mellitus without | | | | [address] | [address] [place], [place] | complication, with | | | | Mailcode: [facility] | [address] | long-term current | | | | [facility] | [phone] | use of insulin ([facility]) | | | | and Healing, | | (Primary Dx); | | | | Building 1 | | Chronic right-sided | | | | [place], [place] | | heart failure (HCC) | | | | [address] | | | | | | [phone] | | | +--------+---------+ + + + [...] management of her heart failure by her Desk Operator 3) Check A1c, lipids 4) Await bariatric surgery in February 2018 5) Continue phentermine 37.5 mg daily 6) Continue wound care, non-pressure ambulation of right foot wound 7) Follow-up 4-6 months In the interim, the patient underwent bariatric surgery and was discharged from the [facility] on 03/03/2018. Today, the patient reports [...] 06/23 - She is working with the commercial construction superintendent in her office - She is taking [...] tongue once daily., Disp: , Rfl: CALCIUM CRB&LKV-Z4-TAC17-GENIS ORAL, Take 2 tablets by mouth two [...] 3.19 11/28/2016 Lab Results Component Value Date [id number] 88.6 05/27/2018 Lab Results Component Value Date [...] weight of 320lbs. Plan to work with commercial construction superintendent from bariatric surgery, identify etio logy of [...] is currently being managed well by her Desk Operator with diuretics and mainte nance of her [...] Gissell Clements MD Fellow, Cardiovascular Medicine Pager [phone] signed by Gissell Clements MD at 06/04/2018 [...] | | 2018 | Visit | | [address] | | | | | | [place], [place] | | | | | | [address] | | | | | | [phone] | | | | | | | [...]
--- OUTSIDE RECORDS SUMMARY | ~2019-05-23 | XMS | Encounter Summary ---
Demographics + + + | Address | [address] | | | [place] [address] | + + + | Home Phone [...] [place], [place] | | | | | [address] | | + + + + + | Ellie Vang | ECON | Unknown | | + + + + + Care Team Providers + +------+ + | Care Allergist/Immunologist Name | Role | Phone | + +------+ + | Fadi Goodrich DO | PCP | | + +------+ + Encounter Details +--------+ + + + + | Date | Type | Department | Care Team | Description | +--------+ + + + + | 08/22/ | Abstract | Cardiology | Randell Franks, | | | 2013 | | Preventive at [facility] | MD [address] | | | | | [address] | Ave [place], [place] | | | | | Mailcode: CH9A | [address] | | | | | [facility] | [phone] | | | | | and Healing, | | | | | | Building [address] | | | | | | [place], [place] | | | | | | [address] | | | | | | [phone] | | | +--------+ + + + [...] | | 2019 | Visit | | [address] | | | | | | [place] [facility] [place] | | | | | | [address] | | | | | | [phone] | | | | | | | | +--------+ + + + + documented as of this encounter Visit Diagnoses Not on filedocumented in this encounter"
--- OUTSIDE RECORDS SUMMARY | ~2019-05-23 | XMS | Encounter Summary ---
Demographics + + + | Address | [address] | | | [place] [address] | + + + | Home Phone [...] [place], [place] | | | | | [address] | | + + + + + | Ellie Vang | ECON | Unknown | | + + + + + Care Team Providers + +------+ + | Care Railroad Operator Name | Role | Phone | [...] | | | | | bypass | [place], | Mailcode: | | | | | Nausea and | [place] | [address] [facility] | | | | | vomiting, | [address] | Hospital | | | | | intractabili | Phone: | [place], [place] | | | | | ty of | | [address] | | | | | vomiting not | Fax: | Phone: | | | | | specified, | [phone] | [phone] | | | | | unspecified | | Fax: | | | | | vomiting | | [phone] | | | | | type | [...] | | | | | bypass | [place], | Mailcode: | | | | | Nausea and | [place] | [facility] | | | | | vomiting, | [address] | for Health | | | | | intractabili | Phone: | and Healing, | | | | | ty of | [phone] | Building 1, | | | | | vomiting not | Fax: | 5th Floor | | | | | specified, | [phone] | [place], [place] | | | | | unspecified | | [address] | | | | | vomiting | | Phone: | | | | | type | | [phone] | | | | | Diarrhea, | [...] | | | | | bypass | [place], | [address] | | | | | Nausea and | [place] | for Health | | | | | vomiting, | [address] | and Healing, | | | | | intractabili | Phone: | Building 2 | | | | | ty of | | [place], [place] | | | | | vomiting not | Fax: | [address] | | | | | specified, | [phone] | Phone: | | | | | unspecified | | [phone] | | | | | vomiting | | Fax: | | | | | type | | [phone] | | | | | Diarrhea, | [...] | | | | | | | AR UPPER GI | | | | | [...] | [facility] | | | with DONOR RECRUITMENT MANAGER | | hypertension | [address] | [address] | | | | | Right | [address] | [address] | | | | | heart | [facility] [place] | Mailcode: | | | | | failure | [address] | Center for | | | | | ([facility]) Type | Phone: | Health and | | | | | 2 diabetes | [phone] | Healing, | | | | | mellitus | Fax: | Building 2 | | | | | without | [phone] | [facility] [place] | | | | | complication | | [address] | | | | | , with | | Phone: | | | | | long-term | | | | | | | current use | | Fax: | | | | | of insulin | | [phone] | | | | | ([facility]) | | | | | | | [...] | Center at [facility] [address] | AGACNP [address] | gastric bypass | | | | [address] | Ave [place], [place] | (Primary Dx); Nausea | | | | Mailcode: Center | [address] | and vomiting, | | | | for Health and | | intractability of | | | | Healing, Building 2 | | vomiting not | | | | [place], [place] | | specified, | | | | [address] | | unspecified vomiting | | | | [phone] | | type; Diarrhea, | | | [...] getting fluids at a local clinic in [place] -I will contact you if further testing is indicated -follow up with once of our surgeons once testing is complete -get some protein de la o--isopure or premier protein de la o. documented in this encounter Progress Notes Melissa Garay RN - 03/01/2019 1:50 PM PDTSpoke with patient's PCP office [phone] and notified them that Infusion unit at [facility] (fax [phone]) requires a provider with privileges there to sign the IV infusion orders. Since Dr. Cardenas is out on maternity leave, SOFI Ulrich will check with provider covering. Infusion order and chart not e faxed to PCP at [phone]. Patient notified. Charli Murillo MA - 03/01/2019 1:50 PM PDTPatient presents for blood draw per Providers order Site: LEFT A/C Time: 14:30 Patient tolerated well; ONE ATTEMPT Keren Arcos [facility] DONOR RECRUITMENT MANAGER - 03/01/2019 1:50 PM PDT BARIATRIC [...] less 8 [facility] Social History Socioeconomic History [...] History Narrative Updated 11/09/15 She lives in [place] with her mother and her sister (also her caregiver) lives in an apa rtment/duplex below. She has 2 grandchildren (age 4 and 7) who live with her daughter and son-in-law Her boyfriend lives in [place] HFpEF, DM2, HTN, Sleep Apnea (unable to tolerate CPAP), Hypothyroidism, Severe Obesity ([facility] weight 495 lbs) Last seen [...] program here and refer her to our rail specialist who also has expertise in physical [...] buccal film, , Disp: , Rfl: CALCIUM CRB&KEF-W2-HGY23-GENIS ORAL, Take 2 tablets by mouth two [...] tablet, Take 1 tablet by mo [facility] once daily., Disp: 90 tablet, Rfl: [...] be administered closer to her home in [place]. LR 1-2 L 3 times weekly, until [...] to plan and will call and/or send Digital Assent message if any issues. Start time 1422, end time 1455. I spent a total of 33 minutes face to face with this patie nt. Over 50% of visit was in counseling. ALBINA Perrin Bariatric Surgery Nurse Practitioner [facility] | [address] | [place], [place] | [address] | documented in th is encounter Plan [...] | | | | [place] [facility] [place] | | | | | | [address] | | | | | | [phone] | | | | | | | [...] [facility] | [address] | [place] [address] | | | SERVICES, CORE | CLARENCE [...] | | | | | determined by [employer] | | | | | | Laboratories. See | | | | | | Compliance Statement B: | | | | | | Evrent.Biomoti/CSPerformed | | | | | | by [employer],500 | | | | | | Liliana Martinez, [facility],[place] | | | | | | [address] | | | | | | [phone].Evrent. | | | | | | sevier [...] + + | [facility] | [address] [facility] | [place], [place] | | | UNIV PTH - INTFC | | [address] | | + + + + + [...] [facility] | | | (YEN NOAH) | [email or web address],500 | | REG UNIV | | | SERUM | Liliana Martinez, [facility] [place] | | PTH - INTFC | | | | [address] | | | | | | [phone].aruplab. | | | | | | Ismael [...] B: | | | | | | imoji/CS | | | | + + + + + + + + | Specimen | + + | Blood - Blood | | (substance) | + + + + + + + | Performing | Address | City/State/Zipcode | Phone Number | | Organization | | | | + + + + + | [facility] | [address] | [place], [place] | | | UNIV PTH - INTFC | | [address] | | + + + + + [...] [facility] | [address] | [place] [address] | | | SERVICES, CORE | PARK [...] + + + + + | [facility] | [address] | [place] [address] | | | SERVICES, CORE | CLARENCE [...] INTERPRETIVE | 70 - 180 nmol/L | [facility] | | | WHOLE | INFORMATION: [...] | | | | | determined by [employer] | | | | | | Laboratories. See | | | | | | Compliance Statement B: | | | | | | Evrent.Biomoti/CSPerformed | | | | | | by [employer],[address] | | | | | | [place], [place] | | | | | | [address] | | | | | | [phone].Evrent. | | | | | | sevier [...] [facility] | [address] | [place], [place] | | | UNIV PTH - INTFC | | [address] | | + + + + + [...] INTFC | | | | determined by [facility] | | | | | | Laboratories. See | | | | | | Compliance Statement B: | | | | | | Evrent.Biomoti/CSPerformed | | | | | | by [employer],[address] | | | | | | Arnaldodomonique [facility] | | | | | | [address] | | | | | | [phone].Evrent. | | | | | | com, [...] [facility] | [address] | [place], [place] | | | UNIV PTH - INTFC | | [address] | | + + + + + [...] [facility] | [address] | [place] [address] | | | SERVICES, CORE | PARK [...] | | | | | determined by [employer] | | | | | | Laboratories. See | | | | | | Compliance Statement B: | | | | | | Evrent.Biomoti/CSPerformed | | | | | | by [employer],500 | | | | | | Liliana Martinez [facility] [place] | | | | | | [address] | | | | | | [phone].Evrent. | | | | | | comIsmael [...] [facility] | [address] | [place], [place] | | | UNIV PTH - INTFC | | [address] | | + + + + + [...] [facility] | [address] | [place] [address] | | | SERVICES, CORE | PARK [...] [facility] | [address] | [place] [address] | | | SERVICES, CORE | PARK [...] + + + + + | [facility] | [address] | [place] [address] | | | SERVICES, SPECIAL | CLARENCE [...] + + + + + | [facility] | [address] | [place] [address] | | | SERVICES, CORE | CLARENCE [...] B: | | | | | | Synthelislab.com/CSPerformed | | | | | | by [employer] [facility],500 | | | | | | [place] | | | | | | [address] | | | | | | [phone].Superhumanuplab. | | | | | | Ismael [...] [facility] | [address] | [place], [place] | | | UNIV PTH - INTFC | | [address] | | + + + + + [...] + + + + + | [facility] | [address] | [place] [address] | | | CLAIRE, LYDIA | PARK [...]
--- OUTSIDE RECORDS SUMMARY | ~2019-05-23 | XMS | Encounter Summary ---
Demographics + + + | Address | [address] | | | [place] [address] | + + + | Home Phone [...] [place], [place] | | | | | [address] | | + + + + + | Ellie Vang | ECON | Unknown | | + + + + + Care Team Providers + +------+ + | Care Windows Admin Name | Role | Phone | [...] the | | | | | | [facility] [address] [facility] | | | | | | [facility] | | | | | | [place], [place] | | | | | | [address] | | | +--------+ + + + [...] | | 2019 | Visit | | [address] | | | | | | [place] [facility] [place] | | | | | | [address] | | | | | | [phone] | | | | | | | | +--------+ + + + + documented as of this encounter Visit Diagnoses Not on filedocumented in this encounter"
--- OUTSIDE RECORDS SUMMARY | ~2019-05-23 | XMS | Encounter Summary ---
Demographics + + + | Address | [address] | | | [place] [address] | + + + | Home Phone [...] [place], [place] | | | | | [address] | | + + + + + | Ellie Vang | ECON | Unknown | | + + + + + Care Team Providers + +------+ + | Care Certified Medical Aide Name | Role | Phone | [...] Dx) | | | | Surgery at [facility] [address] | [place], [place] | | | | | [address] | [address] | | | | | Mailcode: [facility] | [phone] | | | | | [facility] | | | | | | and Healing, | | | | | | Building 1, 5th | | | | | | Floor [place], [place] | | | | | | [address] | | | | | | [phone] | | | +--------+---------+ + + + [...] limb 150 cm or less 8 [facility], Dr Pandey Cholecystectomy, laparoscopic Allergies [...] 50 mg by mouth once daily. CALCIUM CRB&KHT-I9-MWD64-GENIS ORAL Take 2 tablets by mouth two [...] | | | | | [place], [place] | | | | | | [address] | | | | | | [phone] | | | | | | | | +--------+ + + + + documented as of this encounter Visit Diagnoses + + | Diagnosis | + + | Excess skin of abdomen - Primary Unspecified hypertrophic and atrophic condition of | | skin | + + documented in this encounter
--- OUTSIDE RECORDS SUMMARY | ~2019-05-23 | XMS | Encounter Summary ---
Demographics + + + | Address | [address] | | | [place] [address] | + + + | Home Phone [...] [place], [place] | | | | | [address] | | + + + + + | Ellie Vang | ECON | Unknown | | + + + + + Care Team Providers + +------+ + | Care Software Programmer Name | Role | Phone | + +------+ + | Fadi Goodrich DO | PCP | | + +------+ + Encounter Details +--------+------+ + + + | Date | Type | Department | Care Team | Description | +--------+------+ + + + | 10/12/ | Lab | Laboratory at [facility] | | | | 2019 | | [address] | | | | | | [place], [place] | | | | | | [address] | | | | | | [phone] | | | +--------+------+ + + + [...] | | 2018 | Visit | | [address] | | | | | | [place], [place] | | | | | | [address] | | | | | | [phone] | | | | | | | [...] [facility] | [address] | [place] [address] | | | SERVICES, [facility] | [address] | | | + [...] INTFC | | | | determined by [employer] | | | | | | Laboratories. See | | | | | | Compliance Statement B: | | | | | | MailInBlack/CSPerformed | | | | | | by Wepa,[address] | | | | | | Liliana Martinez, [facility],[place] | | | | | | [address] | | | | | | [phone].Basecamplab. | | | | | | Ismael [...] [facility] | [address] | [place], [place] | | | UNIV PTH - INTFC | | [address] | | + + + + + [...] | | | | | determined by [employer] | | | | | | Laboratories. See | | | | | | Compliance Statement B: | | | | | | [employer]/CSPerformed | | | | | | by [employer]ep[employer],500 | | | | | | [facility] | | | | | | [address] | | | | | | [phone].[employer]. | | | | | | com, [...] [facility] | [address] | [place], [place] | | | UNIV PTH - INTFC | | [address] | | + + + + + [...] [facility] | | | (YEN NOAH) | [facility] [facility],500 | | REG UNIV | | | SERUM | [facility], [facility],[place] | | PTH - INTFC | | | | [address] | | | | | | [phone].Free-lance.ruuplab. | | | | | | [employer], Ismael Willis MD, | | | | [...] B: | | | | | | [employer]/ | | | | + + + + + + + + | Specimen | + + | Blood - Blood | | (substance) | + + + + + + + | Performing | Address | City/State/Zipcode | Phone Number | | Organization | | | | + + + + + | [facility] | [address] | [place], [place] | | | UNIV PTH - INTFC | | [address] | | + + + + + [...] [facility] | [address] | [place] [address] | | | SERVICES, CORE | PARK [...] [facility] | [address] | [place] [address] | | | SERVICES, LYDIA | CLARENCE [...] INTERPRETIVE | 70 - 180 nmol/L | [facility] | | | WHOLE | [...] B: | | | | | | [employer]/CSPerformed | | | | | | by Wepa,500 | | | | | | Liliana Martinez [facility],[place] | | | | | | [address] | | | | | | [phone].[employer]. | | | | | | com, [...] [facility] | [address] | [place], [place] | | | UNIV PTH - INTFC | | [address] | | + + + + + [...] [facility] | [address] | [place] [address] | | | SERVICES, CORE | CLARENCE [...] | | | | | determined by [employer] | | | | | | Laboratories. See | | | | | | Compliance Statement B: | | | | | | [employer]/CSPerformed | | | | | | by Wepa,[address] | | | | | | Liliana Martinez, [facility],[place] | | | | | | [address] | | | | | | [phone].[employer]. | | | | | | comIsmael [...] [facility] | [address] | [place], [place] | | | UNIV PTH - INTFC | | [address] | | + + + + + [...] [facility] | [address] | [place] [address] | | | SERVICES, CORE | PARK [...] + + + + | [facility] | [address] | [place] [address] | | | SERVICES, SPECIAL | CLARENCE [...] [facility] | [address] | [place] [address] | | | SERVICES, CORE | CLARENCE [...] at | | | | | | [email or web address].[employer]/csPerfor | | | | | | med by [facility] | | | | | | Sergo,Henok Ford | | | | | | [place] [address] | | | | | | [phone].[employer]. | | | | | | logan [...] [facility] | [address] | [place], [place] | | | UNIV PTH - INTFC | | [address] | | + + [...] [facility] | [address] | [place] [address] | | | SERVICES, CORE | [address] | | | + + + + + documented in this encounter Visit Diagnoses Not on filedocumented in this encounter"
--- OUTSIDE RECORDS SUMMARY | ~2019-05-23 | XMS | Encounter Summary ---
Demographics + + + | Address | [address] | | | [place] [address] | + + + | Home Phone [...] [place], [place] | | | | | [address] | | + + + + + | Ellie Vang | ECON | Unknown | | + + + + + Care Team Providers + +------+ + | Care Scheme Technician Name | Role | Phone | [...] UPPER ENDOSCOPY | | 2018 | | [facility] | [address] | | | | | Admitting Desk | [place], [place] | | | | | Located on the | [address] | | | | | floor [address] [facility] | [phone] | | | | | [address] | | | | | | [place], [place] | | | | | | [address] | | | +--------+---------+ + + + [...] the endoscopy department toll free ext. [phone] or After business hours or on weekends and holiday Hospital Structural Rigger toll free [phone] ext. [phone] and have the GI doctor aircraft inspection record clerk paged. The provider who performed your [...] | | 0 | | | | CRB&AVY-W2-SSV32-GEN | mouth two times | | | [...] 2:35 PM PST PRE PROCEDURE NOTE: MR# [id number] Subjective: Elzbieta Cristina is a 43 y.o. [...] [place] | | | | | | [address] | | | | | | [phone] | | | | | | | [...] -----+ | MRN: Analisa ARBOLEDA | | [id number] Date: 06/23/2018Patient Name: Elzbieta Curtis #: | ENDOSCOP Y | | [id number] of : 1975CSN: [id number] Type: | | | AmbulatoryRoom: SORProcedure: Upper GI | | | endoscopyIndications: Nausea with vomiting, Status post | | | Jwrf-ox-CXbuzkoqaw: KALEB WILCOX MD (Doctor), JOSE | | | NASIMA, Steel Fabricating Supervisor | | | (Steel Fabricating Supervisor)Referring MD: DANIELLE GARCÍAPRemateusz | | | Provider: [...] | | | The Olympus GIF-HQ190 Gastroscope #[id number] was | | | introduced through the [...] endoscope without resistance. The | | | lghms-rp-uporbpl limb was characterized by healthy appearing | [...] Initiated On: | | | 06/23/2018 3:58 [facility] Letter to: FADI GOODRICH DO [...] [facility] | [address] | [place], [place] | | | [place] POINT OF CARE | [address] | [address] | | | TESTS | | | [...] 06/23/18 at | | | 1324, Until [facility] 06/24/18 at 0027, | | | [...] Thu06/23/18 | | | at 1330, Until [facility] 06/24/18 at | | | 0027 | | + +---+ | | | + +---+ documented in this encounter"
--- OUTSIDE RECORDS SUMMARY | ~2019-05-23 | XMS | Encounter Summary ---
Demographics + + + | Address | [address] | | | [place] [address] | + + + | Home Phone [...] [place], [place] | | | | | [address] | | + + + + + | Ellie Vang | ECON | Unknown | | + + + + + Care Team Providers + +------+ + | Care Cattle Broker Name | Role | Phone | [...] | | 2019 | Visit | | [address] | | | | | | [place], [place] | | | | | | [address] | | | | | | [phone] | | | | | | | | +--------+ + + + + documented as of this encounter Visit Diagnoses Not on filedocumented in this encounter"
--- OUTSIDE RECORDS SUMMARY | ~2019-05-23 | XMS | Encounter Summary ---
Demographics + + + | Address | [address] | | | [place] [address] | + + + | Home Phone [...] [place], [place] | | | | | [address] | | + + + + + | Ellie Vang | ECON | Unknown | | + + + + + Care Team Providers + +------+ + | Care Hedis Abstractor Name | Role | Phone | + +------+ + | Fadi Goodrich DO | PCP | | + +------+ + Encounter Details +--------+ + + + + | Date | Type | Department | Care Team | Description | +--------+ + + + + | 08/22/ | Abstract | Cardiology | Randell Franks, | | | 2013 | | Preventive at [place] | MD [address] | | | | | [address] | Ave [place], [place] | | | | | Mailcode: CH9A | [address] | | | | | [facility] | [phone] | | | | | and Healing, | | | | | | Building [address] | | | | | | [place], [place] | | | | | | [address] | | | | | | [phone] | | | +--------+ + + + [...] | | 2019 | Visit | | [address] | | | | | | [place] [facility] [place] | | | | | | [address] | | | | | | [phone] | | | | | | | | +--------+ + + + + documented as of this encounter Visit Diagnoses Not on filedocumented in this encounter"
--- OUTSIDE RECORDS SUMMARY | ~2019-05-23 | XMS | Encounter Summary ---
Demographics + + + | Address | [address] | | | [place] [address] | + + + | Home Phone [...] [place], [place] | | | | | [address] | | + + + + + | Ellie Vang | ECON | Unknown | | + + + + + Care Team Providers + +------+ + | Care Water Pump Assembler Name | Role | Phone [...] Medical Records | | 2013 | | [place] [facility] [address] | [address] | Review ([facility] - | | | | [address] | [address] | OUTSIDE RECORDS) | | | | Mailcode: [place] | [place], [place] | | | | | [facility] and | [address] | | | | | [place] [address] | [phone] | | | | | [place], [place] | | | | | | [address] | | | | | | [phone] | | | +--------+ + + + [...] | | | | | [place] | | | | | | [address] | | | | | | [phone] | | | | | | | | +--------+ + + + + documented as of this encounter Visit Diagnoses Not on filedocumented in this encounter"
--- OUTSIDE RECORDS SUMMARY | ~2019-05-23 | XMS | Encounter Summary ---
Demographics + + + | Address | [address] | | | [place] [address] | + + + | Home Phone [...] [place], [place] | | | | | [address] | | + + + + + | Ellie Vang | ECON | Unknown | | + + + + + Care Team Providers + +------+ + | Care Electronic Scale Subassembler Name | Role | Phone | + +------+ + | Fadi Goodrich DO | PCP | | + +------+ + Encounter Details +--------+ + + + + | Date | Type | Department | Care Team | Description | +--------+ + + + + | 10/19/ | Abstract | Digestive Health | Clinic, Surgery | | | 2017 | | [place] [facility] [address] | | | | | | [address] | | | | | | Mailcode: [facility] | | | | | | [facility] Health and | | | | | | [facility] 2 | | | | | | [place], [place] | | | | | | [address] | | | | | | [phone] | | | +--------+ + + + [...] | | | | | [place], [place] | | | | | | [address] | | | | | | [phone] | | | | | | | | +--------+ + + + + documented as of this encounter Visit Diagnoses Not on filedocumented in this encounter"
--- OUTSIDE RECORDS SUMMARY | ~2019-05-23 | XMS | Encounter Summary ---
Demographics + + + | Address | [address] | | | [place] [address] | + + + | Home Phone [...] [place], [place] | | | | | [address] | | + + + + + | Ellie Vang | ECON | Unknown | | + + + + + Care Team Providers + +------+ + | Care Plastic Extrusion Operator Name | Role | Phone | [...] | | | | PRINCE Flannery | Yran Lesly | | | | | Mailcode: [place] | [place], [place] | | | | | [facility] and | [address] | | | | | [facility] 2 | [phone] | | | | | [place], [place] | | | | | | [address] | | | | | | [phone] | | | +--------+ + + + [...] | | | | [place] [facility] [place] | | | | | | [address] | | | | | | [phone] | | | | | | | | +--------+ + + + + documented as of this encounter Visit Diagnoses Not on filedocumented in this encounter"
--- OUTSIDE RECORDS SUMMARY | ~2019-05-23 | XMS | Encounter Summary ---
Demographics + + + | Address | [address] | | | [place] [address] | + + + | Home Phone [...] Team Providers + +------+ + | Care Luggage Liner Name | Role | Phone | + +------+ + | Fadi Goodrich DO | PCP | | + +------+ + Encounter Details +--------+ + + + + | Date | Type | Department | Care Team | Description | +--------+ + + + + | 07/06/ | Abstract | Digestive Health | Clinic, Surgery | | | 2016 | | [place] [address] | | | | | | [address] [address] | | | | | | Mailcode: [place] | | | | | | [facility] Health and | | | | | | [facility] 2 | | | | | | [place], [place] | | | | | | [address] | | | | | | [phone] | | | +--------+ + + + [...] | | | | | [place], [place] | | | | | | [address] | | | | | | [phone] | | | | | | | | +--------+ + + + + documented as of this encounter Visit Diagnoses Not on filedocumented in this encounter"
--- OUTSIDE RECORDS SUMMARY | ~2019-05-23 | XMS | Encounter Summary ---
Demographics + + + | Address | [address] | | | [place] [address] | + + + | Home Phone [...] [place], [place] | | | | | [address] | | + + + + + | Ellie Vang | ECON | Unknown | | + + + + + Care Team Providers + +------+ + | Care Cisco Network Architect Name | Role | Phone | [...] | | | 2013 | Event | [facility] | [address] | | | | | Admitting Desk | Lesly Gutiérrez [facility] | | | | | [facility] on the | [place] [address] | | | | | floor [address] | [phone] | | | | | [address] | | | | | | [place], [place] | | | | | | [address] | | | +--------+ + + + [...] | | | | | [place] Del[place], [place] | | | | | | [address] | | | | | | [phone] | | | | | | | [...]
--- OUTSIDE RECORDS SUMMARY | ~2019-05-23 | XMS | Encounter Summary ---
Demographics + + + | Address | [address] | | | [place] [address] | + + + | Home Phone [...] [place], [place] | | | | | [address] | | + + + + + | Ellie Vang | ECON | Unknown | | + + + + + Care Team Providers + +------+ + | Care Clother In Name | Role | Phone | + +------+ + | Fadi Goodrich DO | PCP | | + +------+ + Encounter Details +--------+ + + + + | Date | Type | Department | Care Team | Description | +--------+ + + + + | 12/12/ | Emergency | [facility] Emergency | | | | 2014 - | | Department [address] | | | | | | [address] | | | | 05/20/ | | [facility] | | | | 2014 | | [place], [place] | | | | | | [address] | | | | | | [phone] | | | +--------+ + + + [...] [address] | | | | | | [place], [place] | | | | | | [address] | | | | | | [phone] | | | | | | | | +--------+ + + + + documented as of this encounter Visit Diagnoses Not on filedocumented in this encounter"
--- OUTSIDE RECORDS SUMMARY | ~2019-05-23 | XMS | Encounter Summary ---
Demographics + + + | Address | [address] | | | [place] [address] | + + + | Home Phone [...] [place], [place] | | | | | [address] | | + + + + + | Ellie Vang | ECON | Unknown | | + + + + + Care Team Providers + +------+ + | Care Package Maker Name | Role | Phone | [...] Visit | Medicine Clinic at | J, RECEPTIONIST NURSE | (Primary Dx); | | | | [facility] | | Dysphagia, | | | | [address] | | unspecified type; | | | | Mail Code: OC8PM | | Hypertension, | | | | Center for [facility] | | unspecified type; | | | | and Healing, | | Hyperlipidemia, | | | | Building 2 | | unspecified | | | | [place], [place] | | hyperlipidemia type; | | | | [address] | | Diastolic | | | | [phone] | | congestive heart | | | [...] | | Endotracheal Tube; 7; Oral; | ROLLING MILL OPERATOR HELPER | ROLLING MILL OPERATOR HELPER | | | Cuffed; 06/23/18; 1542 | [...] encounter Patient Instructions Patient Instructions Tiara Mckeon, RECEPTIONIST NURSE - 06/16/2018 3:15 PM [facility] PREOPERATIVE INSTRUCTIONS Please consider having an [...] your procedure. Surgery check-in location: Admitting - [facility], ninth floor [facility] Surgery Check in Time: The Preoperative [...] is after office hours, call the [facility] oven operator at [phone] and ask them to page him or [...] weight loss and diuretic tx, follows with varnish thinner Hypothyroidism stabilized on hormone replacement Type 2 [...] renal failure no electrolyte abnormalities no dialysis Urology/Patient Intake Representative: Urologic Conditions: nephrolithiasis Endo: Diabetes: type 2 [...] sublingual Place under tongue once daily. CALCIUM CRB&BXZ-E6-UYI60-GENIS ORAL Take 2 tablets by mouth two [...] [facility] Family history reviewed / [...] weight loss and diuretic tx, follows with varnish thinner. Appears comp ensated today. Hypothyroidism stabilized on hormone replacement. Take on DOS as usual Type 2 diabetes, well controlled with A1c 6.1 Thank you for the opportunity to contribute to this patient's care. HILDA Lagos [facility] PREOPERATIVE [facility]INE [facility]INIC AT [facility] 4TH FLOOR [address] [facility] [address] I advised the patient regarding [...] | | | | | [place], [place] | | | | | | [address] | | | | | | [phone] | | | | | | | [...]
--- OUTSIDE RECORDS SUMMARY | ~2019-05-23 | XMS | Encounter Summary ---
Demographics + + + | Address | [address] | | | [place] [address] | + + + | Home Phone [...] Providers + +------+ + | Care Vault Person Name | Role | Phone | [...] Diabetes & | Morbid | Kathy M, PARTS PERSON | [address]pv [address] | | | | Metabolism | obesity | [address] | | | | | ([facility]) | [address], | [address] | | | | | Procedures | [address] | Physician's | | | | | CONSULT TO | [place], [place] | Pavilion | | | | | ENDO | [address] | Physician's | | | | | [address] | Phone: | Pavilion | | | | | | [phone] | [place], [place] | | | | | | Fax: | [address] | | | | | | [phone] | Phone: | | | | | | | [phone] | | | | | | | Fax: | | | | | | | [phone] | +--------+--------+ + + + + Encounter [...] | | Center at Physicians | [place], [place] | (Primary Dx); Morbid | | | | Pavilion [address] | [address] | obesity (HCC) | | | | [address] | [phone] | | | | | Physician's | | | | | | Pavilion | | | | | | Physician's Pavilion | | | | | | [place], [place] | | | | | | [address] | | | | | | [phone] | | | +--------+---------+ + + + [...] [place] | | | | | | [address] | | | | | | [phone] | | | | | | | [...]
--- OUTSIDE RECORDS SUMMARY | ~2019-05-23 | XMS | Encounter Summary ---
Demographics + + + | Address | [address] | | | [place] [address] | + + + | Home Phone [...] [place], [place] | | | | | [address] | | + + + + + | Ellie Vang | ECON | Unknown | | + + + + + Care Team Providers + +------+ + | Care Academic Support Director Name | Role | Phone | [...] on | Center at [facility] [address] | MANAGER NON PROFIT [address] | | | | | [address] [address]ann[address] | [facility] 350 | | | | | Mailcode: Center | [place], [place] | | | | | [facility] Health and | [address] | | | | | [facility] 2 | [phone] | | | | | [place], [place] | | | | | | [address] | | | | | | [phone] | | | +--------+ + + + [...] | | | | | [place], [place] | | | | | | [address] | | | | | | [phone] | | | | | | | | +--------+ + + + + documented as of this encounter Visit Diagnoses Not on filedocumented in this encounter"
--- OUTSIDE RECORDS SUMMARY | ~2019-05-23 | XMS | Encounter Summary ---
Demographics + + + | Address | [address] | | | [place] [address] | + + + | Home Phone [...] [place], [place] | | | | | [address] | | + + + + + | Ellie Vang | ECON | Unknown | | + + + + + Care Team Providers + +------+ + | Care Mushroom Laborer Name | Role | Phone | [...] Center | | | | | | [place], [place] | | | | | | [address] | | | | | | [phone] | | | +--------+ + + + [...] | | | | | [place], [place] | | | | | | [address] | | | | | | [phone] | | | | | | | [...] | | | | navigated a #5.5 Mozambican | | | | | | Ozzy [...] | | | | | | a#5.5 Mozambican sheath was | | | | | | secured into place. In | | | | | | a similar fashion, | | | | | | a#7.0 Mozambican sheath was | | | | | [...] | | | | | The #7 Mozambican Brite | | | | | | [...]
--- OUTSIDE RECORDS SUMMARY | ~2019-05-23 | XMS | Encounter Summary ---
Demographics + + + | Address | [address] | | | [place] [address] | + + + | Home Phone [...] [place], [place] | | | | | [address] | | + + + + + | Ellie Vang | ECON | Unknown | | + + + + + Care Team Providers + +------+ + | Care Social Worker Palliative Care Name | Role | Phone | [...] | | 2019 | Visit | | [address] | | | | | | [place], [place] | | | | | | [address] | | | | | | [phone] | | | | | | | | +--------+ + + + + documented as of this encounter Visit Diagnoses Not on filedocumented in this encounter"
--- OUTSIDE RECORDS SUMMARY | ~2019-05-23 | XMS | Encounter Summary ---
Demographics + + + | Address | [address] | | | [place] [address] | + + + | Home Phone [...] [place], [place] | | | | | [address] | | + + + + + | Ellie Vang | ECON | Unknown | | + + + + + Care Team Providers + +------+ + | Care Typewriter Aligner Name | Role | Phone | [...] INCISIONAL HERNIA | | 2015 | | [facility] | [address] | REPAIR | | | | Admitting Desk | [address] | | | | | Located on the 9 | [place], [place] | | | | | floor [address] | [address] | | | | | [address] | [phone] | | | | | [place], [place] | | | | | | [address] | | | +--------+---------+ + + + [...] site who was transferre d to [facility] for concern of an incarcerated [...] mouth once daily. , Historical Med CALCIUM CRB&NFT-M7-XWZ56-GENIS ORAL Take 1 tablet by mouth two [...] 10:40 AM Randell Franks Cardiology Preventive at [facility] [phone] Cardiology 04/09/2015 1:00 PM Egs Ppv Tra Trauma Emergency General Surgery at [facility] [phone] TRAUMA CENTE Outstanding labs/studies: None Discharging Physician: GABO LANGSTON MD Attending Physician: Dr. Cantu PCP: Fadi Goodrich DO Signed: GABO LANGSTON MD Pager #[phone] Surgical Director Safety [facility] Associated attestation - Tye Carrillo DO - 03/12/2015 9:12 AM PDTAttending: I discussed this patient with the resident and agree with the assessment and plan as outlin ed in this note and participated in the planning of care. Tye Carrillo DO, SIDRA, FACS Division of Trauma, Critical Care & Acute Care Surgery [facility] [phone] documented in this encounter Medications at Time of Discharge + + + +---------+--------+ + | Medication | Sig | Dispensed | Refills | Start | End Date | | | | | | Date | | + + + +---------+--------+ + | CALCIUM | Take 2 tablets by | | 0 | | | | CRB&CKM-I4-WCC13-GEN | mouth two times | | | [...] might be differ ent from the original. [facility] DEPARTMENT OF SURGERY EMERGENCY GENERAL SURGERY Division [...] with known ventral hernias transferred to [facility] for surgical managem ent of ventral hernia, now s/p repair. Post surgical pain: -patient ready for d/c, discussed f/u. Patient lives far away and has other appointments at [facility]. Will attempt to coordinate appointments. Discharge Plan: D/c today AGBO LANGSTON MD Pager #[phone] Surgical Director Safety [facility] ick Mendez, Salomón rose R - 03/02/2015 1:12 PM PDT [facility] DEPARTMENT OF SURGERY EMERGENCY GENERAL SURGERY Division of Trauma and Critical Care Attending Physician: Shahid Cantu MD Progress Note Note Date: 03/02/2015 Admission Date: 2015 DYLAN ROMERO, Hospital Day #2 40 F PMH morbid obesity (BMI 71 today), DM2, depression, GERD, h/o stroke at age 18, and kn own ventral hernias transferred to [facility] for surgical treatment of suspected [...] with known ventral hernias transferred to [facility] for surgical managem ent of [...] will be robel ing her home to [place], [place]. CALVIN ROMERO MD PGY-1 Anesthesiology Pager: [phone] [facility] A [address] [place] [address] Karthik Oneill MD - 03/02/2015 8:26 AM [id number] Calvin William Md - 03/01/2015 5:34 PM PDT Brief Post Operative Note: 40 F PMH morbid obesity (BMI 71 today), DM2, depression, GERD, h/o stroke at age 18, and kn own ventral hernias transferred to [facility] for surgical treatment of incarcerated [...] control CALVIN ROMERO MD PGY-1 Anesthesiology Pager: [phone] signed by Calvin Romero Md at 03/01/2015 [...] | | | | | [place], [place] | | | | | | [address] | | | | | | [phone] | | | | | | | [...] | | Attending Surgeon: Shahid Cantu MD Farm Machinery Mechanic(s): Howie Angeles MD, R5 | | Karthik [...] 03/02/2015 08:25:39DT: 03/02/2015 09:15:57Job #: | | [id number] | | | |Dr. Chris Cantu was present and scrubbed for the entirety of the case. | | | | | | | |Karthik Gonzalez MD | | | |Pursuant to federal Medicare and Medicaid regulations I was present for the entire procedur e. | | | | | | | |Shahid Cantu MD | |Telecommunicator Supervisor | |Trauma, Critical Care & Acute Care Surgery | | | | | | | |Shahid Cantu MD | |TBK/CARLOSL | | | | | | /[id number] | + ---+ CAPILLARY BLOOD GLUCOSE (NO [...] MARQUAM | [address] | [place], [place] | | | [place] POINT OF CARE | [address] | [address] | | | TESTS | | | [...] + + + | NKECHI AMES | [address] | [place], [place] | | | [place] POINT OF CARE | [address] | [address] | | | TESTS | | | [...] MARQUAM | [address] | [place], [place] | | | [place] POINT OF CARE | [address] | [address] | | | TESTS | | | [...] MARQUAM | [address] | [place], [place] | | | [place] POINT OF CARE | [address] | [address] | | | TESTS | | | [...] + + + | NKECHI AMES | [address] | [place], [place] | | | [place] POINT OF CARE | [address] | [address] | | | TESTS | | | [...] MARQUAM | [address] | [place], [place] | | | [place] POINT OF CARE | [address] | [address] | | | TESTS | | | [...] [facility] | [address] | [place] [address] | | | SERVICES, CORE | CLARENCE [...] [facility] | [address] | [place] [address] | | | SERVICES, CORE | CLARENCE [...] (H) | 60 - 99 mg/dL | [facility] - | | | GLUCOSE, | | [...] AMES | [address] | [place], [place] | | | JUSTINE DAWN OF JAKY | [facility] | [address] | | | TESTS | | | [...] MARQUAM | [address] | [place], [place] | | | JUSTINE DAWN OF CARE | [address] | [address] | | | TESTS | | | [...] KWAKU | [address] | [place], [place] | | | JUSTINE DAWN OF JAKY | [address] | [address] | | | TESTS | | | [...] AMES | [address] | [place], [place] | | | JUSTINE DAWN OF JAKY | [facility] | [address] | | | TESTS | | | [...] - MARQUAM | [address] | [place], [place] | | | [place] POINT OF CARE | [facility] | [address] | | | TESTS | | | [...] [facility] | [address] | [place] [address] | | | LYDIA RANGEL | PARK [...] - MARQUAM | [address] | [place], [place] | | | L[place] [facility] | [address] | [address] | | | TESTS | | | [...]
--- OUTSIDE RECORDS SUMMARY | ~2019-05-23 | XMS | Encounter Summary ---
Demographics + + + | Address | [address] | | | [place] [address] | + + + | Home Phone [...] Team Providers + +------+ + | Care Under Trimmer Name | Role | Phone | [...] | | 2014 | | Center at [facility] [address] | [address] | (11/03 and 11/06 phone | | | | [address]ann[address] | [address] JUPITER, | calls) | | | | Mailcode: [place] | [place] [address] | | | | | for Health and | | | | | | [facility] 2 | | | | | | [place], [place] | | | | | | [address] | | | | | | [phone] | | | +--------+ + + + [...] | | | | | [place], [place] | | | | | | [address] | | | | | | [phone] | | | | | | | | +--------+ + + + + documented as of this encounter Visit Diagnoses Not on filedocumented in this encounter"
--- OUTSIDE RECORDS SUMMARY | ~2019-05-23 | XMS | Encounter Summary ---
Demographics + + + | Address | [address] | | | [place] [address] | + + + | Home Phone [...] [place], [place] | | | | | [address] | | + + + + + | Ellie Vang | ECON | Unknown | | + + + + + Care Team Providers + +------+ + | Care Poleyard Supervisor Name | Role | Phone | [...] | HA Roldan | | | with [employer] ADMINISTRATOR | | hypertension | [address] | [address] | | | | | Right | [address] | [address] | | | | | heart | [place], [place] | [place], | | | | | failure | [address] | [place] | | | | | ([facility]) Type | Phone: | [address] | | | | | 2 diabetes | [phone] | | | | | | mellitus | Fax: | | | | | | without | [phone] | | | | | | complication | | | | | | | , with | | | | | | | long-term | | | | | | | current use | | | | | | | of insulin | | | | | | | ([facility]) | | | +--------+ + + [...] | | | [address] | [facility] [address] | (Primary Dx); | | | | Mailcode: Center | [place], [place] | 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[facility] and | [address] | with insulin therapy | | | | [address] | | ([facility]) | | | | [place], [place] | | | | | | [address] | | | | | | [phone] | | | +--------+---------+ + + + [...] Follow-Up Patient referred by: Randell Franks MD [address] [place] [address] Documented time of visit: 10:33 to 10:55 (22 minutes [id number] with patient) Surgery: Gastric Bypass Date of [...] tomato), cream of wheat occ, cottage cheese, bahamian yogurt-light and fit, protein bar from [employer]. Unable to keep protei n shakes down. Fluid choices: water-4-5 bottles per day Supplementation: Flinstones, iron, vitamin D, vitamin C, Citracal supplement x 2 in the mor eusebio and 2 at night, magnesium, potassium, H38-xgkksefu today Assessment: Vomiting likely due to volume [...] multivitamin & mineral (with iron) supplement, 2/day -1395-4339 mg calcium citrate with vitamin D/day (take in divided doses, not within 2 hour s of multivitamin or iron supplement) -500 mcg/day sublingual B12 supplement (or monthly injections) Continued to reinforce importance of mindful eating. Continue to increase physical activity. Follow up in [address],[place] Pager# [phone] Phone: [phone] documented in this e ncounter Plan of [...] | | | | [place], [place] | | | | | | [address] | | | | | | [phone] | | | | | | | | +--------+ + + + + documented as of this encounter Procedures + +--------+ + + + | Procedure Name | Priori | Date/Time | Associated Diagnosis | Comments | | | ty | | | | + +--------+ + + + | [place] MNT RE-ASSESSMNT | Routin | 04/01/2018 | [...]
--- OUTSIDE RECORDS SUMMARY | ~2019-05-23 | XMS | Encounter Summary ---
Demographics + + + | Address | [address] | | | [place] [address] | + + + | Home Phone [...] + + | Author | [facility] (Historical as of | | | 03-12-19) | + + + | Organization | [facility] (Historical as of | | | 03-12-19) [...] Providers + +------+ + | Care Customer Engineering Specialist Name | Role | Phone | + +------+ + | Kenyatta Cardenas MD | PCP | | + +------+ + Encounter Details +--------+ + + + + | Date | Type | Department | Care Team | Description | +--------+ + + + + | 02/22/ | Ancillary | [facility] | Sulema Altamirano | History of sinus | | 2018 | Procedure | ECHO | SELINA [address] | tachycardia; HTN, | | | | | Ya Islas F | goal below 130/80; | | | | | [place] [address] | Chronic diastolic | | | | | [phone] | heart failure (HCC); | | | [...] Elzbieta Cristina Date of : 1975 | [facility] | | Performing Physician: Darryl Merrill | [...] MV A Jeffrey: 0.61 m/s MV Dec Grant: 2.43 m/s2 | | | MV DecT: 247.51 ms MV E Jeffrey: 0.60 m/s MV E/A Ratio: | | | 0.98 MV PHT: 71.78 ms MVA By PHT: 3.06 cm2 Septal e': | | | 0.06 m/s Septal E/e': 9.54 Lateral e': 0.10 m/s Lateral | | | E/e': 5.84 RAP: 5 mmHg RV s': 0.11 m/s Screen Printing Paster: | | | DH Authenticated by: Darryl [facility] Report Date/Time: 02-22-2019 | | | 20:8:36 | | + + + + --------+ | Procedure Note | + --------+ | Aditya, Rad Results In - 02/22/2019 8:10 PM PDT Patient Name: Sherrell Cristina | | : 1975Accession: [id number] Physician: Darryl | | Alsamara INDICATIONS------ | [...] cmLVIDd: 4.70 cmLVPWd: 0.79 cmLVOT Area: 3.58 ww4ACFC Diam: 2.13 | | cm%FS: 39.25 %EF(Teich): [...] mlLAESV Index (A-L): 14.72 ml/m2LAAs A2C: 10.03 hu5LKDVE A-L A2C: 22.69 | | mlLALs A2C: 3.76 cmLAAs A4C: 13.41 ob2CJEQB A-L A4C: 36.80 mlLALs A4C: 4.14 | | cmRAAs: 11.18 os0TRIGG A-L: 22.84 mlRAESV MOD: 22.10 mlRALs: 4.64 cmTAPSE: | | 2.04 cmAV maxP.55 mmHgAV meanP.52 mmHgAV Vmax: 1.27 m/Genesis Vmean: 0.88 | | m/Genesis VTI: 26.50 cmAVA Vmax: 2.49 cm2AVA (VTI): 2.39 ay8TDTK Vmax: 0.00 | | cm2/m2AVAI (VTI): 0.00 cm2/m2LVOT maxP.17 mmHgLVOT meanP.82 mmHgLVSI Dopp: | | 30.83 ml/m2LVSV Dopp: 63.52 mlLVOT Vmax: 0.89 m/sLVOT Vmean: 0.65 m/sLVOT VTI: | | 17.71 cmMV A Jeffrey: 0.61 m/sMV Dec Grant: 2.43 m/s2MV DecT: 247.51 msMV E Jeffrey: | | 0.60 m/sMV E/A Ratio: 0.98 MV PHT: 71.78 msMVA By PHT: 3.06 gb3Ubkzxn e': 0.06 | | m/sSeptal E/e': 9.54 [...] A Jeffrey: 0.61 m/s | |MV Dec Grant: 2.43 m/s2 | |MV DecT: 247.51 ms | |MV E Jeffrey: 0.60 m/s | |MV E/A Ratio: 0.98 | |MV PHT: 71.78 ms | |MVA By PHT: 3.06 cm2 | |Septal e': 0.06 m/s | |Septal E/e': 9.54 | |Lateral e': 0.10 m/s | |Lateral E/e': 5.84 | |RAP: 5 mmHg | |RV s': 0.11 m/s | | | |Screen Printing Paster: JESSICA | |Authenticated by: Darryl [facility] | |Report Date/Time: 02-22-2019 20:8:36 | | [...] [facility] | [address] | [place] [address] | | + + + + + [...]
--- OUTSIDE RECORDS SUMMARY | ~2019-05-23 | XMS | Encounter Summary ---
Demographics + + + | Address | [address] | | | [place] [address] | + + + | Home Phone [...] [place], [place] | | | | | [address] | | + + + + + | Ellie Vang | ECON | Unknown | | + + + + + Care Team Providers + +------+ + | Care Sign Builder Name | Role | Phone | [...] 2017 | | Center at [facility] [address] | AC[address] | | | | | [address] | Ave [place], [place] | | | | | Mailcode: [place] | [address] | | | | | for Health and | [phone] | | | | | [facility] 2 | | | | | | [place], [place] | | | | | | [address] | | | | | | | [...] | | | | | [place], [place] | | | | | | [address] | | | | | | [phone] | | | | | | | | +--------+ + + + + documented as of this encounter Visit Diagnoses Not on filedocumented in this encounter"
--- OUTSIDE RECORDS SUMMARY | ~2019-05-23 | XMS | Encounter Summary ---
Demographics + + + | Address | [address] | | | [place] [address] | + + + | Home Phone [...] [place], [place] | | | | | [address] | | + + + + + | Ellie Vang | ECON | Unknown | | + + + + + Care Team Providers + +------+ + | Care Supervisor Ride Assembly Name | Role | Phone | [...] Diabetes & | Morbid | Kathy M, INSTALLATION HELPER | [address] | | | | Metabolism | obesity | [address] | [address] | | | | | ([facility]) | [address], | [address] | | | | | Procedures | [address] | Physician's | | | | | CONSULT TO | [place], [place] | Pavilion | | | | | ENDO | [address] | Physician's | | | | | [address] | Phone: | Pavilion | | | | | | [phone] | [place], [place] | | | | | | Fax: | [address] | | | | | | [phone] | Phone: | | | | | | | [phone] | | | | | | | Fax: | | | | | | | [phone] | +--------+--------+ + + + + Encounter [...] | | Center at Physicians | [place], [place] | (Primary Dx); Morbid | | | | [address] | [address] | obesity (HCC) | | | | [address] | [phone] | | | | | Physician's | | | | | | Pavilion | | | | | | Physician's Pavilion | | | | | | [place], [place] | | | | | | [address] | | | | | | [phone] | | | +--------+---------+ + + + [...] and T2DM. Since I saw Ms. Livia snigh last, she started on phentermine with good [...] | | | | | [place], [place] | | | | | | [address] | | | | | | [phone] | | | | | | | [...]
--- OUTSIDE RECORDS SUMMARY | ~2019-05-23 | XMS | Encounter Summary ---
Demographics + + + | Address | [address] | | | [place] [address] | + + + | Home Phone [...] [place], [place] | | | | | [address] | | + + + + + | Ellie Vang | ECON | Unknown | | + + + + + Care Team Providers + +------+ + | Care Food Safety Specialist Name | Role | Phone [...] [facility] [address] | AC[address] | | | | | [address] | Ave [place], [place] | | | | | Mailcode: [place] | [address] | | | | | for Health and | [phone] | | | | | [facility] 2 | | | | | | [place], [place] | | | | | | [address] | | | | | | | [...] [place] | | | | | | [address] | | | | | | [phone] | | | | | | | | +--------+ + + + + documented as of this encounter Visit Diagnoses Not on filedocumented in this encounter"
--- OUTSIDE RECORDS SUMMARY | ~2019-05-23 | XMS | Encounter Summary ---
Demographics + + + | Address | [address] | | | [place] [address] | + + + | Home Phone [...] [place], [place] | | | | | [address] | | + + + + + | Ellie Vang | ECON | Unknown | | + + + + + Care Team Providers + +------+ + | Care Information Security Systems Instructor Name | Role | Phone | [...] | | 2019 | Visit | | [address] | | | | | | [place], [place] | | | | | | [address] | | | | | | [phone] | | | | | | | | +--------+ + + + + documented as of this encounter Visit Diagnoses Not on filedocumented in this encounter"
--- OUTSIDE RECORDS SUMMARY | ~2019-05-23 | XMS | Encounter Summary ---
Demographics + + + | Address | [address] | | | [place] [address] | + + + | Home Phone [...] [place], [place] | | | | | [address] | | + + + + + | Ellie Vang | ECON | Unknown | | + + + + + Care Team Providers + +------+ + | Care Adult Manager Name | Role | Phone | + +------+ + | Fadi Goodrich DO | PCP | | + +------+ + Encounter Details +--------+------+ + + + | Date | Type | Department | Care Team | Description | +--------+------+ + + + | 06/16/ | Lab | Laboratory at [facility] | | Morbid obesity with | | 2012 | | [address] | | BMI of 70 and over, | | | | [place], [place] | | adult (HCC); Vitamin | | | | [address] | | D deficiency | | | | [phone] | | disease; | | | | [...] [place] | | | | | | [address] | | | | | | [phone] | | | | | | | [...] at | | | | | | [email or web address] [facility] | | | | | | [...] | | | | | Arnaldodomonique Martinez, [facility] | | | | | | [address] | | | | | | [phone]. | | | | | | pastora, [...] at | | | | | | [facility] [facility] [facility] | | | | | | developed and | | | | | | characteristics | | | | | | determined by | | | | | | [facility]. See | | | | | | Compliance Statement B: | | | | | | Cook Taste Eat/CS | | | | + + + + + + + + | Specimen | + + | Blood - Blood | + + + + + + + | Performing | Address | City/State/[facility] [place] | Phone Number | | Organization | | | | + + + + + | [facility] | [address] | [place], [place] | | | [facility] | | [address] | | + + + + + [...]
--- OUTSIDE RECORDS SUMMARY | ~2019-05-23 | XMS | Encounter Summary ---
Demographics + + + | Address | [address] | | | [place] [address] | + + + | Home Phone [...] [place], [place] | | | | | [address] | | + + + + + | Ellie Vang | ECON | Unknown | | + + + + + Care Team Providers + +------+ + | Care Infection Control Coordinator Name | Role | Phone | [...] | | | | | | | [address] | | | | | | | [address] | | | | | | | [place], | | | | | | | [place] | | | | | | | [address] | | | | | | | Phone: | | | | | | | [phone] | | | | | | | Fax: | | | | | | | [phone] | +--------+--------+ + + + + Encounter Details +--------+---------+ + + + | Date | Type | Department | Care Team | Description | +--------+---------+ + + + | 04/14/ | Office | Digestive Health | Hernandez Brian, | Morbid obesity (HCC) | | 2013 | Visit | Center at [facility] [address] | [address] | (Primary Dx); Type | | | | [address] | [address] | 2 diabetes mellitus | | | | Mailcode: Center | [place], [place] | ([facility]); AMARA | | | | for Health and | [address] | (obstructive sleep | | | | [facility] 2 | [phone] | apnea); Edema | | | | [place], [place] | | | | | | [address] | | | | | | [phone] | | | +--------+---------+ + + + [...] this year, she was tr ansferred from [place] for surgical evaluation of possible incarcerated ventral [...] with close followup by her PCP in [place] in the interim. Dr. Guillory in [place] has been following her since January, with CT scan obtained at [facility] in [place] 02/09/2013 (images in IMPAX), demonstrating "recurrent hypogastric [...] to follow up with her providers at [facility] to include a visi t [...] r weight loss efforts. She saw a prepress proofer today and Melida came in to discuss [...] | | | | | [place], [place] | | | | | | [address] | | | | | | [phone] | | | | | | | | +--------+ + + + + documented as of this encounter Visit Diagnoses + + | Diagnosis | + + | Morbid obesity (HCC) - Primary Morbid obesity | + + | Type 2 diabetes mellitus ([facility]) Type II or unspecified type diabetes mellitus without | | mention of complication, not stated as uncontrolled | + + | AMARA (obstructive sleep apnea) Obstructive sleep apnea (adult) (pediatric) | + + | Edema | + + documented in this encounter
--- OUTSIDE RECORDS SUMMARY | ~2019-05-23 | XMS | Encounter Summary ---
Demographics + + + | Address | [address] | | | [place] [address] | + + + | Home Phone [...] [place], [place] | | | | | [address] | | + + + + + [...] | Laboratory at [facility] | | Type 2 diabetes | | 2013 | | [address] | | mellitus (HCC) | | | | [place], [place] | | | | | | [address] | | | | | | [phone] | | | +--------+------+ + + + [...] | | 2019 | Visit | | [address] | | | | | | [place], [place] | | | | | | [address] | | | | | | [phone] | | | | | | | [...] [facility] | [address] | [place] [address] | | | SERVICES, SPECIAL | PARK [...]
--- OUTSIDE RECORDS SUMMARY | ~2019-05-23 | XMS | Encounter Summary ---
Demographics + + + | Address | [address] | | | [place] [address] | + + + | Home Phone [...] [place], [place] | | | | | [address] | | + + + + + | Ellie Vang | ECON | Unknown | | + + + + + Care Team Providers + +------+ + | Care Complaint Investigator Name | Role | Phone | [...] | | | | | | | [place] for | | | | | | | [place] and | | | | | | | Healing, | | | | | | | Building [address] | | | | | | | [place], [place] | | | | | | | [address] | | | | | | | Phone: | | | | | | | [phone] | | | | | | | Fax: | | | | | | | [phone] | +--------+--------+ + + + + Encounter [...] | | [address] | Ave [place], [place] | adult (HCC) (Primary | | | | Mailcode: Center | [address] | Dx); Vitamin D | | | | for Health and | | deficiency disease; | | | | Healing, Building [address] | | Intertriginous | | | | [place], [place] | | candidiasis; | | | | [address] | | Diabetes mellitus | | | [...] Psychological Evaluation: If your referral is at [facility], pain management will call irma riggs in [...] the time. If your referral is at [facility], they will call y ou in the next week to schedule. She will arrange 8. Nephrology Consult: Please call [facility] ([phone]) and have them send you a urine specimen container. You will need to discuss your kidney stone risk with a nephrology provid er prior to proceeding with gastric bypass. If your referral is at [facility], they will call you in the next [...] at the same time: betsy Feldman RN, [facility]- Nurse Practitioner for Bariatric Surgery [facility] | [address] | [place], [place] | [address] | Potential Contraindications to Bariatric Surgery Age [...] other providers does not guarantee that the [facility] Bariatric Surger y program will deem you a surgical candidate. documented in this encounter Progress Notes Shereen Pinto ACNP - 06/16/2013 1:28 PM PSTFormatting of this note might be different fro m the original. BARIATRIC INITIAL VISIT Provider: Shereen Pinto DNP, [facility], CLIENT RESOLUTION SPECIALIST Referring Provider: Dr. Fadi Goodrich, [place] [phone] Reason for Requested Consultation: Initial evaluation for bariatric surgery. Elzbieta Farooq is interested in Frandy en y alfredo tomeka bypass. The pt is here With her sister. Following surgery her mother and sister will care for her, she will Stay in [place] after surgery so that she is close by. She lives in [place]. They have few stairs to get into [...] recently gained weight, she met with our personnel assistant today, she has been making poor food [...] none Use of Redux or Phen/fen: no Episcopal or cultural reason you would refuse blood [...] as well , hypertension, hyperlipidemia. Denies CHF, [place], ischemic heart disease, DVT/PE, or pulmonary hypertension. [...] the therapy. 8. Nephrology Consult: Please call [facility] ([phone]) and have them send you a urine specimen container. You will need to discuss your kidney stone risk with a nephrology provid er prior to proceeding with gastric bypass. If your referral is at [facility], they will call you in the next week to schedule. You are at increased risk of renal stones after surgery, with your history of stone, we want to check of oxalate in your urine. You will need a referral to a electrician rectifier maintenance If your level is elevated. 9. See [...] soon as possible Shereen Pinto DNP ACNP, CLIENT RESOLUTION SPECIALIST Nurse Practitioner for Bariatric Surgery [facility] | [address] | [place] | [address] | Potential Contraindications to Bariatric Surgery Age [...] other providers does not guarantee that the [facility] Bariatric Surger y program will deem you [...] | | 2018 | Visit | | [address] | | | | | | [place], [place] | | | | | | [address] | | | | | | [phone] | | | | | | | [...] at | | | | | | [facility] [email or web address] | | | | | | developed and | | | | | | characteristics | | | | | | determined by | | | | | | [facility]. See | | | | | | Compliance Statement B: | | | | | | [email or web address]/CSPerformed | | | | | | by [employer],[address] | | | | | | [place], [facility] [place] | | | | | | [address] | | | | | | [phone]. | | | | | | com, [...] at | | | | | | [employer] [facility] | | | | | | developed and | | | | | | characteristics | | | | | | determined by | | | | | | [facility]. See | | | | | | Compliance Statement B: | | | | | | HeyAnita/CS | | | | + + + + + + + + | Specimen | + + | Blood - Blood | + + + + + + + | Performing | Address | City/State/Zipcode | Phone Number | | Organization | | | | + + + + + | [facility] | [address] | [place], [place] | | | [facility] | | [address] | | + + + + + [...]
--- OUTSIDE RECORDS SUMMARY | ~2019-05-23 | XMS | Encounter Summary ---
Demographics + + + | Address | [address] | | | [place] [address] | + + + | Home Phone [...] [place], [place] | | | | | [address] | | + + + + + | Ellie Vang | ECON | Unknown | | + + + + + Care Team Providers + +------+ + | Care Edge Banding Off Bearer Name | Role | Phone | + [...] 2018 | | Center at [facility] [address] | MD [address] | | | | | [address] | [place], [place] | | | | | Mailcode: [place] | [address] | | | | | Health and | [phone] | | | | | [place] [address] | | | | | | [place], [place] | | | | | | [address] | | | | | | [phone] | | | +--------+--------+ + + + [...] | | | | | [place], [place] | | | | | | [address] | | | | | | [phone] | | | | | | | | +--------+ + + + + documented as of this encounter Visit Diagnoses Not on filedocumented in this encounter"
--- OUTSIDE RECORDS SUMMARY | ~2019-05-23 | XMS | Encounter Summary ---
Demographics + + + | Address | [address] | | | [place] [address] | + + + | Home Phone [...] [place], [place] | | | | | [address] | | + + + + + | Ellie Vang | ECON | Unknown | | + + + + + Care Team Providers + +------+ + | Care Asic Design Engineer Name | Role | Phone [...] [address] | | | | | [place] [facility] [address] | [address] [place], [place] | | | | | [address] [facility] | [address] | | | | | Mailcode: Center | [phone] | | | | | for Health and | | | | | | [facility] 2 | | | | | | [place], [place] | | | | | | [address] | | | | | | [phone] | | | +--------+ + + + [...] [place] | | | | | | [address] | | | | | | [phone] | | | | | | | | +--------+ + + + + documented as of this encounter Visit Diagnoses Not on filedocumented in this encounter"
[~2019-05-23 17:07] MED LIST changes: +REGLAN10 MG PO
--- OUTSIDE RECORDS SUMMARY | 2019-05-23 17:10 | XMS ---
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 No recent Security Events currently on file CRITERIA MET - Group Notification - [facility] - Has Care Guidelines - PDMP - [facility] - 2 Visits in 30 Days CARE PROVIDERS JONES DAVISON Dentist: Industrial Design Engineer 05/23/2019-Current PHONE: [phone] Rob Tilley Electric Distribution Checker/Motor Tester 03/27/2018-Current PHONE: [phone] Bernard Hylton Internal Medicine: Pulmonary Disease 08/23/2018-Current PHONE: Unknown LOUIE HYLTON Primary Care Current PHONE: Unknown Rob Tilley Primary Care 03/27/2018-Current PHONE: [phone] Guidelines Source: [facility] [place] Guidelines Date: 12/06/2018 Care Coordination: Receiving mental health services with [facility].\T\nbsp; Please contact [facility] for mental health concerns.\T\nbsp; [place]: [phone]\T\ nbsp; [place]: [phone].\T\nbsp; Care History Medical/Surgical 05/11/2019 [facility] - Patient is currently established with [facility]. If patient is seen in the ED during business hours. Please contact [facility] at [facility]. Care Recommendation: This patient has had 5 or more Emergency Department visits in the last 12 months.\T\nbsp; Patient requires education on the scope and purpose of the ED as an acute care provider not a Primary Care Provider and should not be utilized for chronic conditions.\T\nbsp; These are guidelines and the provider should exercise clinical judgment when providing care. 08/23/2018 [facility] - PATIENT HAS A PCP APT TO ESTABLISH CARE ON 10/04/18 @ 10:00AM WITH DR HYLTON. [place] VISIT COUNT (12 MO.) 1 [facility] [address] [facility] [address] [facility] [facility] TOTAL 6 NOTE: Visits indicate total known visits. ED/UCC VISIT TRACKING (12 MO.) 05/23/2019 17:08 [facility] [place] TYPE: Emergency COMPLAINT: - BLOOD CLOT IN ARM 05/20/2019 10:19 [facility] [place] TYPE: Emergency COMPLAINT: - ABD PAIN, VOMITING 05/13/2019 17:18 [facility] TYPE: Emergency DIAGNOSES: 31833. A303 [id number]. Bariatric surgery status 72257. Ventral hernia without obstruction or gangrene 83538. Nausea with vomiting, unspecified 89687. Unspecified abdominal pain 29631. Nonspecific mesenteric lymphadenitis 05/10/2019 13:06 [facility] [place] TYPE: Emergency COMPLAINT: - ABD PAIN DIAGNOSES: - Nausea with vomiting, unspecified - Allergy status to oth drug/meds/biol subst status - Prsnl hx of TIA (TIA), and cereb infrc w/o resid deficits - Solitary pulmonary nodule - Other shelter (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 - Anxiety disorder, unspecified - Allergy status to penicillin - Ventral hernia without obstruction or gangrene - care home (current) use of aspirin - Unspecified abdominal pain - Diarrhea, unspecified 12/03/2018 11:51 [facility] [place] TYPE: Emergency DIAGNOSES: - Strain of unsp musc/tend at lower leg level, right leg, init - RIGHT LEG PAIN DUE TO FALL 08/22/2018 18:05 [facility] [place] TYPE: Emergency COMPLAINT: - ABD PAIN DIAGNOSES: - Other shelter (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 - Upper abdominal pain, unspecified - Bariatric surgery status - Allergy status to oth drug/meds/biol subst status - Noninfective gastroenteritis and colitis, unspecified - Obesity, unspecified - Anxiety disorder, unspecified - care home (current) use of aspirin - Allergy status to penicillin - Personal history of pulmonary embolism - 1 Type 2 diabetes mellitus without complications - Prsnl hx of TIA (TIA), and cereb infrc w/o resid deficits - care home (current) use of oral hypoglycemic drugs - Personal history of urinary (tract) infections INPATIENT VISIT TRACKING (12 MO.) No inpatient visits to display in this time frame [email or web address]
[2019-05-23] MEDS ORDERED: COUMADIN5 MG PO (19:28)
[2019-05-23] MEDS ORDERED: LOVENOX120 MG/0.8 SUB-Q (19:28)
== END 2019-05-23 19:58 | disposition home or self-care (01) ==
LOC: ED 17:07
DX: I82.621 Acute embolism and thrombosis of deep veins of right upper extremity (principal); F41.9 Anxiety disorder, unspecified; Z88.0 Allergy status to penicillin; Z88.8 Allergy status to other drugs, medicaments and biological substances; Z79.82 Long term (current) use of aspirin; Z79.899 Other long term (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
CPT/HCPCS: 96372; 99283; J1650

== ENCOUNTER 2019-06-01 13:10 | Emergency (ER) | payer OTHER ==
[~2019-06-01] VITALS: Ht 147.3 cm; Wt 122.9 kg
--- OUTSIDE RECORDS SUMMARY | ~2019-06-01 | XMS | Encounter Summary ---
Demographics + + + | Address | [address] | | | [place] [address] | + + + | Home Phone | | + + + | Preferred Language | Unknown | + + + | Marital Status | Single | + + + | Christianity Affiliation | NON | + + + | Race | White | + + + | Ethnic Group | Not or | + + + Author + + + | Author | [facility] | + + + | Organization | [facility] | + + + | Address | Unknown | + + + | Phone | Unavailable | + + + Support + + + + + | Name | Relationship | Address | Phone | + + + + + | Katalina Padilla | ECON | [address] | | | | | [place], [place] | | | | | [address] | | + + + + + | Ellie Vang | ECON | Unknown | | + + + + + Care Team Providers + +------+ + | Care Car Inspector Name | Role | Phone | + +------+ + | Fadi Goodrich DO | PCP | | + +------+ + Encounter Details +--------+------+ + + + | Date | Type | Department | Care Team | Description | +--------+------+ + + + | 11/28/ | Lab | Laboratory at [facility] | | Essential | | 2017 | | [address] | | hypertension; Right | | | | [place], [place] | | heart failure (HCC); | | | | [address] | | Type 2 diabetes | | | | [phone] | | mellitus without | | | | | | complication, with | | | | | | long-term current | | | | | | use of insulin (HCC) | +--------+------+ + + + Social History [...] + +---------+ + | Alcohol Use | Drinks/Week | oz/Week | Comments | + + +---------+ + | No | | 0.0 | | + + +---------+ + + + + | Sex Assigned at | Date Recorded | | | | + + + | Not on file | | + + + + + + + | Job Start Date | Occupation | Industry | + + + + | Not on file | Not on file | Not on file | + + + + + + + + | Travel History | Travel Start | Travel End | + + + + + + | No recent travel history available. | + + documented as of this encounter Plan of Treatment +--------+ + + + + | Date | Type | Specialty | Care Team | Description | +--------+ + + + + | 06/02/ | Telephone-S | Pre-operative | | | | 2018 | cheduled | Medicine | | | +--------+ + + + + | 06/24/ | Procedure | Surgery | | | | 2019 | Pass | | | | +--------+ + + + + | 06/24/ | Hospital | Adult Acute Care | Chilo, | | | 2019 | Encounter | | MD Jorje [address] | | | | | | [address] | | | | | | [place], [place] | | | | | | [address] | | | | | | [phone] | | | | | | | | +--------+ + + + + | 06/24/ | Surgery | Surgery | Chilo, | OPEN VENTRAL HERNIA | | 2018 | | | MD Jorje [address] | REPAIR WITH | | | | | [address] | BIOLOGICAL MESH | | | | | [place], [place] | | | | | | [address] | | | | | | [phone] | | | | | | | | +--------+ + + + + | 06/30/ | Office | Cardiology | Randell Franks, | | | 2018 | Visit | | MD [address]ion [address] | | | | | | [address] [place], [place] | | | | | | [address] | | | | | | [phone] | | | | | | | | +--------+ + + + + documented as of this encounter Procedures + +--------+ + + + | Procedure Name | Priori | Date/Time | Associated Diagnosis | Comments | | | ty | | | | + +--------+ + + + | LIPID LAB - LIPID | Routin | 11/28/2016 | Essential | Results for this | | PROFILE - PLASMA | e | 10:53 AM | hypertension Right | procedure are in the | | LIPIDS, HDL AND LDL | | PDT | heart failure ([facility]) | results section. | | | | | Type 2 diabetes | | | | | | mellitus without | | | | | | complication, with | | | | | | long-term current | | | | | | use of insulin (HCC) | | + +--------+ + + + | COMPLETE METABOLIC | Routin | 11/28/2016 | Essential | Results for this | | SET | e | 10:53 AM | hypertension Right | procedure are in the | | (NA,K,CL,CO2,BUN,CRE | | PDT | heart failure (HCC) | results section. | | AT,GLUC,CA,AST,ALT,B | | | Type 2 diabetes | | | MARGIE TOTAL,ALK | | | mellitus without | | | PHOS,ALB,PROT TOTAL) | | | complication, with | | | | | | long-term current | | | | | | use of insulin ([facility]) | | + +--------+ + + + | TSH | Routin | 11/28/2016 | Essential | Results for this | | | e | 10:53 AM | hypertension Right | procedure are in the | | | | PDT | heart failure ([facility]) | results section. | | | | | Type 2 diabetes | | | | | | mellitus without | | | | | | complication, with | | | | | | long-term current | | | | | | use of insulin (HCC) | | + +--------+ + + + | HEMOGLOBIN A1C, | Routin | 11/28/2016 | Essential | Results for this | | BLOOD | e | 10:53 AM | hypertension Right | procedure are in the | | | | PDT | heart failure ([facility]) | results section. | | | | | Type 2 diabetes | | | | | | mellitus without | | | | | | complication, with | | | | | | long-term current | | | | | | use of insulin (HCC) | | + +--------+ + + + documented in this encounter Results TSH (11/28/2016 10:53 AM PDT) + +-------+ + + + | Component | Value | Ref Range | Performed | Pathologist | | | | | At | Signature | + +-------+ + + + | TSH | 3.19 | 0.44 - 4.75 | [facility] | | | | | mIU/L | LABORATORY | | | | | | SERVICES, | | | | | | CORE | | + +-------+ + + + + + | Specimen | + + | Blood - Blood | | (substance) | + + + + + | Narrative | Performed At | + + + | TSH reference ranges are influenced by a variety of environmental | [facility] | | influences, age, gender and ethnicity. The supplied reference limits | LABORATORY | | are based on published values utilizing a similar TSH assay, and | SERVICES, CORE | | should be interpreted with caution. | | + + + + + + + + | Performing | Address | City/State/Zipcode | Phone Number | | Organization | | | | + + + + + | [facility] | [address] | [place] [address] | | | CLAIRE, LYDIA | [address] | | | + + + + + LIPID LAB - LIPID PROFILE - PLASMA LIPIDS, HDL AND LDL (11/28/2016 10:53 AM PDT) + +---------+ + + + | Component | Value | Ref Range | Performed | Pathologist | | | | | At | Signature | + +---------+ + + + | TOTAL | 175 | <200 mg/dl | [facility] | | | CHOLESTEROL | | | LABORATORY | | | - LIPID | | | SERVICES, | | | LAB | | | LIPID | | + +---------+ + + + | VLDL | 50 (H) | <=31 mg/dl | [facility] | | | CHOLESTEROL | | | LABORATORY | | | , | | | SERVICES, | | | CALCULATED | | | LIPID | | | - LIPID LAB | | | | | + +---------+ + + + | LDL, | 91 | <100 mg/dl | [facility] | | | CHOLESTEROL | | | LABORATORY | | | - LIPID | | | SERVICES, | | | LAB | | | LIPID | | + +---------+ + + + | HDL, | 34 (L) | >50 mg/dl | [facility] | | | CHOLESTEROL | | | LABORATORY | | | - LIPID | | | SERVICES, | | | LAB | | | LIPID | | + +---------+ + + + | TOTAL | 248 (H) | <150 mg/dl | [facility] | | | TRIGLYCERID | | | LABORATORY | | | E - LIPID | | | SERVICES, | | | LAB | | | LIPID | | + +---------+ + + + | NON-HDL | 141 (H) | <=130 mg/dL | [facility] | | | CHOLESTEROL | | | LABORATORY | | | (LIPID | | | SERVICES, | | | LAB) | | | LIPID | | + +---------+ + + + + + | Specimen | + + | Blood - Blood | | (substance) | + + + + + | Narrative | Performed At | + + + | New testing methodology and reference ranges effective May | [facility] | | 22015. | LABORATORY | | | CLAIRE, LIPID | + + + + + + + + | Performing | Address | City/State/Zipcode | Phone Number | | Organization | | | | + + + + + | [facility] | [address] | [place], [place] | | | SERVICES, LIPID | [address] | [id number] | | + + + + + HEMOGLOBIN A1C, BLOOD (11/28/2016 10:53 AM PDT) + + + + + + | Component | Value | Ref Range | Performed | Pathologist | | | | | At | Signature | + + + + + + | HEMOGLOBIN | 6.8 (H)Comment: Hgb A1C | <5.7 % | [facility] | | | A1C | Interpretive | | LABORATORY | | | | Information: | | SERVICES, | | | | <5.7% - Normal | | SPECIAL IMM | | | | 5.7-6.4% - Consistent | | + [facility] | | | | with pre-diabetes | | | | | | >6.4% - Consistent | | | | | | with diabetes | | | | | | | | | | + + + + + + + + | Specimen | + + | Blood - Blood | | (substance) | + + + + + | Narrative | Performed At | + + + | Alternate forms of testing such as glycated serum protein or | [facility] | | glycated albumin should be considered for monitoring correction | LABORATORY | | glycemic control in patients with: Increased red cell turnover, | SERVICES, | | certain hemoglobinopathies (e.g., HbS, HbE, HbC and thalassemia | SPECIAL IMM + | | syndromes), anemias, blood loss, chronic liver disease and | [facility] | | hemochromatosis (artefactually low HbA1c); iron deficiency anemia | | | (artefactually high HbA1c due to enhanced glycation of hemoglobin). | | | | | + + + + + + + + | Performing | Address | City/State/Zipcode | Phone Number | | Organization | | | | + + + + + | [facility] | [address] | [place] [address] | | | SERVICES, SPECIAL | [address] | | | | IMM + [place] | | | | + + + + + COMPLETE METABOLIC SET (NA,K,CL,CO2,BUN,CREAT,GLUC,CA,AST,ALT,BILI TOTAL,ALK PHOS,ALB,PROT TOTAL) (11/28/2016 10:53 AM PDT) + + + + + + | Component | Value | Ref Range | Performed | Pathologist | | | | | At | Signature | + + + + + + | GLUCOSE, | 170 (H) | 60 - 99 mg/dL | [facility] | | | PLASMA | | | LABORATORY | | | (LAB) | | | SERVICES, | | | | | | CORE | | + + + + + + | BUN, PLASMA | 12 | 6 - 20 mg/dL | [facility] | | | (LAB) | | | LABORATORY | | | | | | SERVICES, | | | | | | CORE | | + + + + + + | CREATININE | 0.79 | 0.60 - 1.10 | [facility] | | | PLASMA | | mg/dL | LABORATORY | | | (LAB) | | | SERVICES, | | | | | | CORE | | + + + + + + | EGFR | >60 | >60 mL/min | [facility] | | | - | | | LABORATORY | | | ROMANIAN | | | SERVICES, | | | | | | CORE | | + + + + + + | EGFR NON | >60 | >60 mL/min | [facility] | | | -RAJNI | | | LABORATORY | | | RICAN | | | SERVICES, | | | | | | CORE | | + + + + + + | SODIUM, | 140 | 136 - 145 | [facility] | | | PLASMA | | mmol/L | LABORATORY | | | (LAB) | | | SERVICES, | | | | | | CORE | | + + + + + + | POTASSIUM, | 3.7 | 3.4 - 5.0 | [facility] | | | PLASMA | | mmol/L | LABORATORY | | | (LAB) | | | SERVICES, | | | | | | CORE | | + + + + + + | CHLORIDE, | 108 | 97 - 108 mmol/L | [facility] | | | PLASMA | | | LABORATORY | | | (LAB) | | | SERVICES, | | | | | | CORE | | + + + + + + | TOTAL CO2, | 21 | 21 - 32 mmol/L | [facility] | | | PLASMA | | | LABORATORY | | | (LAB) | | | SERVICES, | | | | | | CORE | | + + + + + + | CALCIUM, | 9.8 | 8.6 - 10.2 | [facility] | | | PLASMA | | mg/dL | LABORATORY | | | (LAB) | | | SERVICES, | | | | | | CORE | | + + + + + + | CALCIUM(ALB | 10.3 (H) | 8.6 - 10.2 | [facility] | | | CORRECTED) | | mg/dL | LABORATORY | | | | | | SERVICES, | | | | | | CORE | | + + + + + + | BILIRUBIN | 0.3 | 0.3 - 1.2 mg/dL | [facility] | | | TOTAL | | | LABORATORY | | | | | | SERVICES, | | | | | | CORE | | + + + + + + | TOTAL | 8.3 (H) | 6.4 - 8.2 g/dL | [facility] | | | PROTEIN, | | | LABORATORY | | | PLASMA | | | SERVICES, | | | (LAB) | | | CORE | | + + + + + + | ALBUMIN, | 3.4 (L) | 3.5 - 4.7 g/dL | [facility] | | | PLASMA | | | LABORATORY | | | (LAB) | | | SERVICES, | | | | | | CORE | | + + + + + + | ALK PHOS | 119 (H) | 42 - 98 U/L | [facility] | | | | | | LABORATORY | | | | | | SERVICES, | | | | | | CORE | | + + + + + + | AST(SGOT) | 16 | <=41 U/L | [facility] | | | | | | LABORATORY | | | | | | SERVICES, | | | | | | CORE | | + + + + + + | ALT (SGPT) | 25 | <=60 U/L | [facility] | | | | | | LABORATORY | | | | | | SERVICES, | | | | | | CORE | | + + + + + + | ANION GAP | 11 | mmol/L | [facility] | | | | | | LABORATORY | | | | | | SERVICES, | | | | | | CORE | | + + + + + + | ANION | 12 (H) | 4 - 11 mmol/L | [facility] | | | GAP(ALB | | | LABORATORY | | | CORRECTED) | | | SERVICES, | | | | | | CORE | | + + + + + + | POTASSIUM | No Hemo | | [facility] | | | CMNT | | | LABORATORY | | | | | | SERVICES, | | | | | | CORE | | + + + + + + | BILI T CMNT | No Hemo | | [facility] | | | | | | LABORATORY | | | | | | SERVICES, | | | | | | CORE | | + + + + + + | AST CMNT | No Hemo | | [facility] | | | | | | LABORATORY | | | | | | SERVICES, | | | | | | CORE | | + + + + + + + + | Specimen | + + | Blood - Blood | | (substance) | + + + + + | Narrative | Performed At | + + + | GFR is estimated using the MDRD equation recommended by the | [facility] | | National Kidney Disease Education Program. Estimated GFR | LABORATORY | | Interpretive Information: <60 mL/min/1.73 sq m | SERVICES, CORE | | Chronic Kidney Disease <15 mL/min/1.73 sq m | | | Kidney Failure Estimated GFR greater that 60 mL/min/1.73 sq m is of | | | limited clinical value. The MDRD equation is not valid in the | | | following situations: - Patients under 18 years of age - Severe | | | malnutrition or obesity - Vegetarian diet - Rapidly changing kidney | | | function | | + + + + + + + + | Performing | Address | City/State/Zipcode | Phone Number | | Organization | | | | + + + + + | [facility] | [address] | [place] [address] | | | SERVICES, CORE | [address] | | | + + + + + documented in this encounter Visit Diagnoses + + | Diagnosis | + + | Essential hypertension | + + | Right heart failure (HCC) Congestive heart failure, unspecified | + + | Type 2 diabetes mellitus without complication, with long-term current use of insulin | | (HCC) | + + documented in this encounter"
--- OUTSIDE RECORDS SUMMARY | ~2019-06-01 | XMS | Encounter Summary ---
Demographics + + + | Address | [address] | | | [place] [address] | + + + | Home Phone | | + + + | Preferred Language | Unknown | + + + | Marital Status | Single | + + + | Confucianist Affiliation | NON | + + + | Race | White | + + + | Ethnic Group | Not or | + + + Author + + + | Author | [facility] | + + + | Organization | [facility] | + + + | Address | Unknown | + + + | Phone | Unavailable | + + + Support + + + + + | Name | Relationship | Address | Phone | + + + + + | Katalina Padilla | ECON | [address] | | | | | [place], [place] | | | | | [id number] | | + + + + + | Ellie Vang | ECON | Unknown | | + + + + + Care Team Providers + +------+ + | Care Legal Activity Adjudicator Name | Role | Phone | + +------+ + | Fadi Goodrich DO | PCP | | + +------+ + Reason for Referral Diagnostic Testing (Routine) +--------+--------+ + + + + | Status | Reason | Specialty | Diagnoses / | Referred By | Referred To | | | | | Procedures | Contact | Contact | +--------+--------+ + + + + | Closed | | Radiology | Diagnoses | Destini, | Rad Ct Scan | | | | | Abdominal | Shereen F, ACNP | [facility] [address] | | | | | pain Morbid | [address] | [address] | | | | | obesity | [address] | [address] | | | | | (HCC) | [place], [place] | Mailcode: | | | | | Procedures | [address] | [address] [facility] | | | | | CT ABDOMEN & | Phone: | Hospital | | | | | PELVIS WWO | | [place], [place] | | | | | IV CONTRAST | Fax: | [address] | | | | | [address] | [phone] | Phone: | | | | | ABDOMEN&PELV | | [phone] | | | | | IS | | Fax: | | | | | W/CONTRAST | | [phone] | | | | | See chart | | | | | | | notes - CT | | | | | | | A/P WWO | | | | | | | cancelled | | | | | | | due to | | | | | | | protocol, | | | | | | | new exam is | | | | | | | for CT A/P | | | | | | | W Contrast. | | | | | | | jlt 10/02/14 | | | +--------+--------+ + + + + Reason for Visit + + + | Reason | Comments | + + + | New Patient Visit | | + + + Benefits Check (Routine) +--------+--------+ + + + + | Status | Reason | Specialty | Diagnoses / | Referred By | Referred To | | | | | Procedures | Contact | Contact | +--------+--------+ + + + + | Closed | | Surgery | | Non[facility] | | | | | | Epic Dept | [facility] | | | | | | | [facility] [address] | | | | | | | [address] | | | | | | | Mailcode: | | | | | | | [facility] | | | | | | | Health and | | | | | | | Healing, | | | | | | | Building [address] | | | | | | | [place], [place] | | | | | | | [address] | | | | | | | Phone: | | | | | | | [phone] | | | | | | | Fax: | | | | | | | [phone] | +--------+--------+ + + + + Encounter Details +--------+---------+ + + + | Date | Type | Department | Care Team | Description | +--------+---------+ + + + | 10/02/ | Office | [facility] | Shereen Georges, | Abdominal pain | | 2015 | Visit | Center at [facility] [address] | ACNP [address] | (Primary Dx); Morbid | | | | [address] | Ave [place], [place] | obesity (HCC) | | | | Mailcode: [place] | [address] | | | | | for Health and | [phone] | | | | | [facility] [address] | | | | | | [place], [place] | | | | | | [address] | | | | | | [phone] | | | +--------+---------+ + + + [...] + + documented as of this encounter Last Filed Vital Signs + + + + + | Vital Sign | Reading | Time Taken | Comments | + + + + + | Blood Pressure | 155/94 | 10/02/2014 11:03 AM | | | | | PDT | | + + + + + | Pulse | 115 | 10/02/2014 11:03 AM | | | | | PDT | | + + + + + | Temperature | 37.1 C (98.8 F) | 10/02/2014 11:03 AM | | | | | PDT | | + + + + + | Respiratory Rate | 17 | 10/02/2014 11:03 AM | | | | | PDT | | + + + + + | Oxygen Saturation | - | - | | + + + + + | Inhaled Oxygen | - | - | | | Concentration | | | | + + + + + | Weight | 175.6 kg (387 lb 1.6 | 10/02/2014 11:03 AM | | | | oz) | PDT | | + + + + + | Height | 154.9 cm (5' 1") | 10/02/2014 11:03 AM | | | | | PDT | | + + + + + | Body Mass Index | 73.14 | 10/02/2014 11:03 AM | | | | | PDT | | + + + + + documented in this encounter Patient Instructions Patient Instructions Shereen Pinto ACNP - 10/02/2014 11:23 AM PDTWith your apron, up in th e air, Use a hair salon manager.... And get it really dry. Then use corn starch ..... Then use medicated powder... Please go to the 3rd floor for the study... [place] [id number] documented in this encounter Progress Notes Shereen Pinto ACNP - 10/02/2014 11:14 AM PDTFormatting of this note might be different fro m the original. BARIATRIC INITIAL VISIT Provider: Shereen Pinto DNP, ACNP, METAL CUTTER Referring Provider: Dr. Goodrich Reason for Requested Consultation: Initial evaluation for bariatric surgery. Elzbieta Cristina is interested in sleeve gastrec elizabeth. She was last seen 06/16/13 for evaluation for surgery. Her weight was 391 at that time. She was asked to lose 20 pounds, To meet a target weight less than 70 BMI. She has been followed in endocrinology and treate d with phentermine. Her weigh today remains at 387 more than 1 year later. She had previously been submitted to insurance, who declined because of her weight target. She presents today with a acute complaint, and has not sought medical care. She presents With her sister per medical transport with complaint of pain, in a perpendicular fashion al alejandra her umbilicus. She feels there is pressure there from her hernia. She stats she has Had increasing pain x 1 week, with persistent Nausea and vomiting (but ate dinner last night and had a coffee drink this am) she thinks s he may have a fever. As well she is concerned about the intertriginous candidid iasis of her pannus. She has assistance to bath, her sister lifts the pannus for cleanses. She sleeps in a recliner, doesn't have a bed. S/p deidra in past few months History of Present Illness: She is a morbidly obese, 39 y.o. female with a BMI of 73, 387 lbs., and 5'1" inches who has failed prior attempts at sustained dietary/medical weight los s and desires surgical weight loss. Please see her initial appointment for review of past diet strategies. Use of Redux or Phen/fen: no ALLERGIES: Allergies Allergen Reactions Amoxicillin Benadrilina [Diphenhydramine Hcl] Hives Parlodel [Bromocriptine] Unknown Blood clots Current outpatient prescriptions:ALPRAZolam XR 3 mg Oral tablet extended release 24 hr, Golden e 3 mg by mouth once daily in the morning. , Disp: , Rfl: ascorbic acid (VITAMIN C) 500 mg Oral tablet, Take 500 mg by mouth once daily. , Disp: , R fl: ergocalciferol (VITAMIN D2) 50,000 unit oral capsule, Take 50,000 Units by mouth twice week ly (on Thursday and )., Disp: , Rfl: FLUoxetine 40 mg Oral capsule, Take 40 mg by mouth once daily. , Disp: , Rfl: HUM INSULIN NPH/REG INSULIN HM (HUMULIN 70/30 SUBQ), Inject 50 cc under the skin (SUBC) onc e daily. , Disp: , Rfl: HYDROmorphone 2 mg oral tablet, Take 1 to 3 tablets by mouth every four hours as needed for moderate pain or severe pain., Disp: 30 tablet, Rfl: 0 metFORMIN 1,000 mg Oral tablet, Take 1,000 mg by mouth once daily. , Disp: , Rfl: OLANZAPINE (ZYPREXA ORAL), Take 30 mg by mouth once daily. , Disp: , Rfl: phentermine 37.5 mg oral tablet, Take 1 tablet by mouth once daily in the morning. Administ er before breakfast., Disp: 90 tablet, Rfl: 1 piroxicam 20 mg Oral capsule, Take 20 mg by mouth once daily. , Disp: , Rfl: ranitidine 300 mg Oral tablet, Take 300 mg by mouth once daily at bedtime. , Disp: , Rfl: senna-docusate 8.6-50 mg Oral tablet, Take 1 Tab by mouth two times daily., Disp: 60 Tab, R fl: 3 thyroid (ARMOUR THYROID) 30 mg oral tablet tab, Take 30 mg by mouth once daily., Disp: , Rf l: topiramate (TOPAMAX) 100 mg oral tablet, Take 1 tablet by mouth two times daily., Disp: 180 tablet, Rfl: 3 TORSEMIDE ORAL, Take 40 mg by mouth two times daily. , Disp: , Rfl: traZODone 150 mg Oral tablet, Take 150 mg by mouth once daily at bedtime. , Disp: , Rfl: History: Past Medical History Diagnosis Date Neck pain Insomnia Allergic rhinitis Lymphedema Diverticulitis of colon Hemorrhoids UTI (urinary tract infection) Tinea corporis Osteoarthritis of knee TIA (transient ischemic attack) due to Bromocriptine Myalgia and myositis Bipolar disorder Depression Staphylococcal infection Anemia Chronic wound infection of abdomen from 2010 Morbid obesity with body mass index of 70 and over in adult Incisional hernia, incarcerated 2013 Hernia of abdominal wall Stroke Dizziness Numbness Heart burn Nausea Abdominal pain Shortness of breath Pneumonia Cough Palpitations Kidney stone Leaking of urine Irregular periods Abnormal ThinPrep Pap test of vagina Leg sore Anxiety Glaucoma Past Surgical History Procedure Laterality Date Tonsillectomy and adenoidectomy Appendectomy, open 2010 Umbilical hernia repair 2010 Treatment of ankle fracture with screws remaining Incision and drainage of wound abscess x2 midline transverse wound s/p open appendectomy 2010 Ventral hernia repair 10/2012 Dr. Andie Brian History Social History Marital Status: Single Spouse Name: N/A Number of Children: 1 Years of Education: N/A Occupational History disabled None Social History Main Topics Smoking status: Former Smoker Smokeless tobacco: Never Used Alcohol Use: No Drug Use: No Sexual Activity: Not on file Other Topics Concern Not on file Social History Narrative She, her daughter, and grandchildren live in a duplex above her mother. Family History Problem Relation Alcohol/Drug Alcoholism in mother & father Hypertension M&F Asthma Father, brother, daughters Lung Disease Father Obesity M&F&Sister Diabetes Mother Arthritis M&F Heart Attack Father Diabetes Mother OBJECTIVE BP 155/94 | Pulse 115 | Temp (Src) 37.1 C (98.8 F) (Oral) | RR 17 | Ht 1.549 m (5' 1") | Wt 175.587 kg (387 lb 1.6 oz) | BMI 73.18 kg/(m^2) Physical exam: General: Alert and cooperative. Smiling. Makeup intact. Well groomed Well appearing Neuro: Oriented x 3. CN III-XII grossly intact. No focal deficits. HEENT: Oropharynx clear without lesion or exudate. Neck: Neck supple. No adenopathy. Respiratory: Good diaphragmatic excursion. Lungs clear to auscultation bilaterally. Cardiac: Regular rate and rhythm, no murmur, gallop or bruits. No carotid bruits noted. Hea rt rate at 90, no murmur rub or click Extremities: 2= pale Extremities . Abdomen: Obese, surgical habitus, soft. She is tender over the right perpenciluar line felipe g her umbilcus 15 cm by 10 cm wide. Soft, not red, she complains of marked pain in that area. Skin: Evaluation of her pannus, small amount of yeast general redness, with a large heavy skin mass. Psych: She describes that she can't walk because of the abdminal pain today, that her rosie s is so large she can't walk. Laboratory Data: NA Impression: This patient meets and or exceeds NIH criteria for morbid obesity with a BMI of 73. She was initially evaluated 06/08 with a required weigh tloss to 374 which she hasn't met. Her BMI remains about 73. 2. Abdominal Pain described as a slow onset over the past week, with associated nausea and vomiting, but describes coffee drink today and dinner last night. Area per palpation is uncomfortable for her, but abd. Is soft. Plan: CT scan to evaluate for entrapped hernia. Admit if positive Discharge if negative CT scan demonstrates a new hernia, no evidence of entrapment or incarceration. She is reque sting pain medication which I have declined. 3. Bariatric Surgery: Elzbieta has been involved with our program for over a year. She has not increased her activity, describes a flavored coffee drink this am. She states she is eating the liver reduction Diet, however she would have had weight loss if she was following that diet. She has been t reated with phentermine the past several months, and had gained up to 409 pounds. This appointment was for the stated goal to see her again and again submit to insurance for authorization. 4. Discussed this patient with Dr. Gilman. She must lose 50 pounds from today before we bety l move forward. That is provided to her in hand written format + . Insurance requirements: your insurance requires : a BMI of less than 70 + Required weight loss: 50 pounds: weight of 337 + Pannus care: she is currently drying, putting on powder then spraying, which makes a clum py collection. Plan: Dry area, use cornstarch and medicated powder no sprays. Once the above list is completed and copies have been received by our office, we will submi t for insurance authorization then schedule with the surgeon. Shereen Pinto DNP, ACNP, METAL CUTTER Nurse Practitioner for Bariatric Surgery [facility] | [address] | [place], [place] | [address] | Potential Contraindications to Bariatric Surgery Age over 69 BMI over 60 Oxygen dependence Immobility wheelchair or bed bound Cardiac issues such as ischemic heart disease as indicated on cardiac stress test or cardia c catheterization; severe or uncompensated heart failure which may be indicated by a decreas ed ejection fraction. Pulmonary issues such as untreated sleep apnea, obesity hypoventilation syndrome, severe CO PD or asthma. Liver disease such as cirrhosis, esophageal varices, or portal hypertension. Severe, untreated renal disease. Rheumatologic and other diseases requiring immune suppressant medications. Untreated or active cancer. Untreated psychological disability. If you have any of the above conditions, you may not be a candidate for bariatric surgery. Our program will perform a thorough evaluation prior to making such a determination. This evaluation may involve testing or consultations. We will make every effort to notify patien ts who are not candidates for surgery as early in the process as possible, but it is importa nt to realize that the surgeon may make that determination later in the process. Clearance for surgery by your PCP or other providers does not guarantee that the [facility] Bariatric Surger y program will deem you a surgical candidate. documented in this en counter Plan of Treatment +--------+ + + + [...] Acute Care | Ch[place], | | | 2018 | Encounter | | MD Demond Recinos | | | | | | [address] | | | | | | [place], [place] | | | | | | [address] | | | | | | [phone] | | | | | | | | +--------+ + + + + | 06/24/ | Surgery | Surgery | [place], | OPEN VENTRAL HERNIA | | 2019 | | | MD Demond Recinos [address] | REPAIR WITH | | | | | [address] | BIOLOGICAL MESH | | | | | [facility] [place] | | | | | | [address] | | | | | | [phone] | | | | | | | | +--------+ + + + + | 06/30/ | Office | Cardiology | Randell Franks, | | | 2019 | Visit | | [address] | | | | | | [place] [facility] [place] | | | | | | [address] | | | | | | [phone] | | | | | | | | +--------+ + + + + documented as of this encounter Procedures + +--------+ + + + | Procedure Name | Priori | Date/Time | Associated Diagnosis | Comments | | | ty | | | | + +--------+ + + + | CT ABDOMEN AND | Routin | 10/02/2014 | | Results for this | | PELVIS W IV CONTRAST | e | 1:27 PM | | procedure are in the | | | | PDT | | results section. | + +--------+ + + + documented in this encounter Results CT ABDOMEN & PELVIS W IV CONTRAST (10/02/2014 1:27 PM PDT) + + + + + + | Component | Value | Ref Range | Performed | Pathologist | | | | | At | Signature | + + + + + + | CT ABDOMEN | EXAM: CT of the abdomen | | | | | & PELVIS W | and pelvis with contrast | | | | | CONTRAST | HISTORY: Abdominal pain | | | | | | with ventral hernia | | | | | | COMPARISON: 10/07/12 | | | | | | TECHNIQUE: CT of the | | | | | | abdomen and pelvis with | | | | | | 150 mL of Omnipaque 350 | | | | | | non-ioniciodinated | | | | | | intravenous contrast. | | | | | | Coronal and sagittal | | | | | | reformats were created. | | | | | | FINDINGS: LOWER THORAX: | | | | | | Unremarkable. LIVER: | | | | | | Unremarkable.BILIARY: | | | | | | The gallbladder is | | | | | | surgically | | | | | | absent.PANCREAS: | | | | | | Unremarkable. SPLEEN: | | | | | | Borderline splenomegaly | | | | | | is | | | | | | redemonstrated.ADRENALS: | | | | | | | | | | | | Unremarkable.KIDNEYS/URE | | | | | | TERS: Left superior pole | | | | | | nonobstructing stone is | | | | | | redemonstratedmeasuring | | | | | | 9 mm. No obstructing | | | | | | stone. No | | | | | | hydronephrosis or | | | | | | perinephric fluid.PELVIC | | | | | | ORGANS/BLADDER: | | | | | | Unremarkable. GI TRACT: | | | | | | Unremarkable.PERITONEUM: | | | | | | The previously noted | | | | | | inferior ventral hernia | | | | | | has been | | | | | | repairedcomplicated by a | | | | | | small fascial defect | | | | | | containing sigmoid | | | | | | colonic | | | | | | sidewall,sagittal image | | | | | | 91. No associated bowel | | | | | | obstruction. A new | | | | | | ventral hernia ispresent | | | | | | located superiorly just | | | | | | to the right of midline | | | | | | which | | | | | | containstransverse | | | | | | colonic sidewall and | | | | | | mesenteric fat. The | | | | | | base of the | | | | | | herniameasures 2.3 cm in | | | | | | transverse dimension. | | | | | | Haziness at the root | | | | | | of the jejunalmesentery | | | | | | with associated mildly | | | | | | prominent lymph nodes is | | | | | | | | | | | | redemonstrated,consisten | | | | | | t with mesenteric | | | | | | panniculitis. No free | | | | | | air or free fluid. LYMPH | | | | | | NODES: Prominent zechariah | | | | | | hepatic lymph node is | | | | | | redemonstrated.VESSELS: | | | | | | Unremarkable. BONES AND | | | | | | SOFT TISSUES: | | | | | | Unremarkable. | | | | | | IMPRESSION: 1. New | | | | | | small Lott ventral | | | | | | hernia containing | | | | | | transverse colon | | | | | | sidewall andmesenteric | | | | | | fat with a 2.3 cm base. | | | | | | No evidence for | | | | | | obstruction | | | | | | orstrangulation. 2. | | | | | | Post surgical changes | | | | | | of inferior ventral | | | | | | hernia repair. The | | | | | | superioraspect of this | | | | | | hernia repair contains a | | | | | | tiny fascial defect | | | | | | with herniation | | | | | | ofsigmoid colon | | | | | | sidewall. No resultant | | | | | | obstruction. 3. Stable | | | | | | left inferior renal | | | | | | pole obstructing stone. | | | | | | Attending Radiologists: | | | | | | LETICIA GREEN, | | | | | | MDAuthor: MARIANGEL EDMONDS MD | | | | | | I have personally viewed | | | | | | this procedure/exam, | | | | | | reviewed this report, | | | | | | and madechanges to it | | | | | | where appropriate. | | | | | | Final/Electronically | | | | | | signed / LETICIA | | | | | | PETER 10/02/2014 16:19 | | | | | | PM Pending final | | | | | | approval / MARIANGEL EDMONDS | | | | | | 10/02/2014 15:52 PM | | | | | | Preliminary / MARIANGEL | | | | | | KENDAL 10/02/2014 13:38 PM | | | | | | | | | | + + + + + + + + | Specimen | + + | | + + + +---------+ + + | Performing | Address | City/State/Zipcode | Phone Number | | Organization | | | | + +---------+ + + | [facility] | | | | [facility] | | | | + +---------+ + + documented in this encounter Visit Diagnoses + + | Diagnosis | + + | Abdominal pain - Primary | + + | Morbid obesity (HCC) Morbid obesity | + + documented in this encounter
--- OUTSIDE RECORDS SUMMARY | ~2019-06-01 | XMS | Encounter Summary ---
Demographics + + + | Address | [address] | | | [place] [address] | + + + | Home Phone | | + + + | Preferred Language | Unknown | + + + | Marital Status | Single | + + + | Sabianism Affiliation | NON | + + + | Race | White | + + + | Ethnic Group | Not or | + + + Author + + + | Author | [facility] | + + + | Organization | [facility] | + + + | Address | Unknown | + + + | Phone | Unavailable | + + + Support + + + + + | Name | Relationship | Address | Phone | + + + + + | Katalina Padilla | ECON | [address] | | | | | [place], [place] | | | | | [address] | | + + + + + | Ellie Vang | ECON | Unknown | | + + + + + Care Team Providers + +------+ + | Care District Fire Management Officer Name | Role | Phone | + +------+ + | Kenyatta Cardenas MD | PCP | | + +------+ + Reason for Visit + + + | Reason | Comments | + + + | New patient | panniculectomy | | consultation | | + + + Encounter Details +--------+---------+ + + + | Date | Type | Department | Care Team | Description | +--------+---------+ + + + | 05/13/ | Office | Plastic and | Archie Ybarra MD | Excess skin of | | 2019 | Visit | Reconstructive | [address] | abdomen (Primary Dx) | | | | Surgery at [facility] [address] | [place], [place] | | | | | [address] | [address] | | | | | Mailcode: [facility] | [phone] | | | | | [facility] | | | | | | and Healing, | | | | | | Building [address], [address]th | | | | | | Floor [place], [place] | | | | | | [address] | | | | | | [phone] | | | +--------+---------+ + + + Social History + + + +--------+------+ | Tobacco Use | Types | Packs/Day | Years | Date | | | | | Used | | + + + +--------+------+ | Passive Smoke | Cigarettes | | | | | Exposure - Never | | | | | | Smoker | | | | | + + + +--------+------+ + +---+---+---+ | Smokeless Tobacco: | [...] + + + | Blood Pressure | 128/86 | 05/13/2019 2:33 PM | | | | | PDT | | + + + + + | Pulse | 104 | 05/13/2019 2:33 PM | | | | | PDT | | + + + + + | Temperature | - | - | | + + + + + | Respiratory Rate | - | - | | + + + + + | Oxygen Saturation | 97% | 05/13/2019 2:33 PM | | | | | PDT | | + + + + + | Inhaled Oxygen | - | - | | | Concentration | | | | + + + + + | Weight | 125.2 kg (276 lb) | 05/13/2019 2:33 PM | | | | | PDT | | + + + + + | Height | 153.7 cm (5' 0.5") | 05/13/2019 2:33 PM | | | | | PDT | | + + + + + | Body Mass Index | 53.02 | 05/13/2019 2:33 PM | | | | | PDT | | + + + + + documented in this encounter Functional Status + + + [...] + + documented as of this encounter Progress Notes Silver De La Cruz - 05/13/2019 2:30 PM PDT PANNICULECTOMY CONSULT HPI: Elzbieta Cristina is a 44 year old female with a history of obesity status post laparoscopic nilesh-en-y gastric bypass. At her most, patient weighed 592 pounds and has now lost over 300 pounds. Patient complains of intertriginous rashes underneath the panniculus. These rashes are often severe enough that the discomfort and pain greatly limit her mobility. She has at tempted to use a variety of creams and powders, including Nystatin, to address intertriginou s rashes for a period longer than three months, but notes that these have provided minimal r elief. She is not a smoker, but lives with her mother who is an every day smoker. Patient rodrigues s a history of multiple blood clots in her lungs, legs, and brain. She undergoes occasional shots of Heparin. Of note, patient was admitted to the ED on 04/07/19 for increased abdominal pain. Patient i s currently scheduled for incarcerated ventral hernia repair in June with Dr. Woo . She notes severe pain at this time. Her pain has been increasing over the past week. Past Medical History: Diagnosis Date Abdominal pain Allergic rhinitis Anemia Anxiety Bipolar disorder (HCC) Chronic wound infection of abdomen from 2010 Depression Diverticulitis of colon Dizziness Hemorrhoids Hernia of abdominal wall Hypothyroidism Incisional hernia, incarcerated 2012 Insomnia Irregular periods Kidney stone Leaking of urine Leg sore Lymphedema Morbid obesity with body mass index of 70 and over in adult (HCC) Myalgia and myositis Nausea Neck pain Numbness Osteoarthritis of knee Palpitations Shortness of breath Sleep apnea TIA (transient ischemic attack) due to Bromocriptine Past Surgical History Procedure Laterality Date Tonsillectomy and adenoidectomy Appendectomy, open 2010 Umbilical hernia repair 2010 Treatment of ankle fracture with screws remaining Incision and drainage of wound abscess x2 midline transverse wound s/p open appendectomy 2010 Ventral hernia repair 10/2012 Dr. Andie Brian Incisional hernia repair 03/01/2015 [facility]/ Dr. Cantu. Primary fascial closure and scar excision Lap gastric byp, and nilesh-en-y gastroenterostomy w/ nilesh limb 150 cm or less 8 [facility], Dr Pandey Cholecystectomy, laparoscopic Allergies Allergen Reactions Amoxicillin Hives Benadrilina [Diphenhydramine Hcl] Hives and Throat Swelling / Closing Parlodel [Bromocriptine] Unknown Blood clots Penicillins Hives Zofran [Ondansetron Hcl (Pf)] Hives Current Outpatient Medications Medication Sig ascorbic acid (vitamin C) (VITAMIN C) 500 mg oral tablet Take 1 tablet by mouth once da mireya. aspirin EC 81 mg oral tablet,delayed release (DR/EC) Take 81 mg by mouth once daily. atenolol 25 mg oral tablet Take 50 mg by mouth once daily. CALCIUM CRB&IZK-G5-NWL40-GENIS ORAL Take 2 tablets by mouth two times daily. CYANOCOBALAMIN (VITAMIN B-12) INJ by injection route every thirty days. docusate sodium (STOOL SOFTENER ORAL) Take 200 mg by mouth. Equate brand per patient doxycycline hyclate 100 mg oral tablet Take 100 mg by mouth every twelve hours. (Pharma cist to substitute salt form as needed) ergocalciferol (VITAMIN D2) 50,000 unit oral capsule Take 1 capsule by mouth every lucía n days. FA/mv,Ca,iron,min/lycopene/lut (MULTIVITAL ORAL) Take by mouth. fentaNYL 12 mcg/hr transdermal patch Apply 1 patch to skin every seventy-two hours. Ple ase remove old patch prior to placing a new one. Ferrous Gluconate 324 mg total salt (36 mg elemental iron) oral tablet Take 1 tablet by mouth once daily. lurasidone (LATUDA) 20 mg oral tablet Take 40 mg by mouth once daily. magnesium oxide 400 mg oral tablet Take 400 mg by mouth once daily. nystatin 100,000 unit/gram topical powder Apply to affected area two times daily. Apply to candidal lesions until lesions have healed. (Patient not taking: Reported on 05/05/2019) omeprazole 20 mg oral capsule,delayed release(DR/EC) Take 1 capsule by mouth once daily . Administer 30 to 60 minutes before meals PARoxetine 10 mg oral tablet Take 40 mg by mouth once daily. phentermine 37.5 mg oral tablet Take 1 tablet by mouth once daily in the morning. Admin ister before breakfast. potassium chloride 20 mEq oral packet Take 20 mEq by mouth two times daily. pramipexole 0.125 mg oral tablet Take 0.125 mg by mouth. promethazine 25 mg oral tablet Take 0.5 tablets by mouth four times daily as needed for nausea/vomiting. Indications: Post-Operative Nausea and Vomiting spironolactone 50 mg oral tablet Take 50 mg by mouth once daily. thyroid (ARMOUR THYROID) 30 mg oral tablet tab Take 30 mg by mouth once daily. topiramate 50 mg oral tablet Take 1 tablet by mouth two times daily. May increase by 1 tab twice daily every 2 weeks, as tolerated. Max dose is 2 tabs twice daily. torsemide 100 mg oral tablet Take 100 mg by mouth two times daily. Resume half dose for first week post opertative No current facility-administered medications for this visit. Social history: Social History Tobacco Use Smoking status: Passive Smoke Exposure - Never Smoker Smokeless tobacco: Never Used Tobacco comment: former social smoker Substance Use Topics Alcohol use: No Alcohol/week: 0.0 standard drinks Drug use: No Family History Problem Relation Heart Attack Father Alcohol abuse Father Diabetes Mother Alcohol abuse Mother Alcohol/Drug Other Alcoholism in mother & father Hypertension Other M&F Asthma Other Father, brother, daughters Lung Disease Other Father Obesity Other M&F&Sister Diabetes Other Mother Arthritis Other M&F Autoimmune Disease Sister lupus Anesthesia problems Neg Hx ROS I reviewed the review of systems on the patient's intake form obtained for today s vi sit. The following pertinent positive ROS were noted: Hot flashes, memory problems, rashes, fainting, fever, depression, stress, sores, headaches, dizziness, chest palpitations, anemia , vomiting, tingling, stuffiness, sores in mouth, sore throat, chest pain, SOB, nausea, numb ness, weakness, joint pain, arthritis, instability, swelling, chills, anxiety, ear ache, run ny nose, purple spots on skin, diarrhea, abdominal pain Physical Examination: BP 128/86 | Pulse 104 | Ht 1.537 m (5' 0.5") | Wt 125.2 kg (276 lb) | SpO2 97% | BMI 53.02 kg/m | BSA 2.31 m General: Distressed and in visible pain Transverse scar at the level of the umbilicus Active intertriginous rashes Mons ptosis present Skin fissures She is writhing in pain and the incarcerated hernia is so tender that she will not let me t ouch the area. I am concerned for a more serious problem related to her hernia. I have called General Surg eileen to evaluate. Assessment: This is a 44 year old female status post significant weight loss suffering from an excessiv e pannus and would benefit from a panniculectomy. At this time, patient will need to undergo ventral hernia prior to panniculectomy. She was in agreement with this plan and will return to clinic in 3-4 months for extended discussion regarding panniculectomy following her marguerite ia repair. Patient was experiencing severe abdominal pain along site of ventral hernia and was visibly distressed. General surgery was consulted during her clinical visit and had a discussion wi th the patient. Patient was admitted to the ED for further evaluation. I am Silver De La Cruz functioning as a scribe for Archie Ybarra MD at 3:56 PM on 05/13/2019 I have reviewed and verified the above scribed note of my visit with this patient as record ed by Silver De La Cruz. documented in this enco unter Plan of Treatment +--------+ + + + [...] | Hospital | Adult Acute Care | [facility] | | | 2018 | Encounter | | MD Demond Recinos | | | | | | [address] | | | | | | [place], [place] | | | | | | [address] | | | | | | [phone] | | | | | | | | +--------+ + + + + | 06/24/ | Surgery | Surgery | [facility], | OPEN VENTRAL HERNIA | | 2018 | | | MD Demond Recinos | REPAIR WITH | | | | | [address] | BIOLOGICAL MESH | | | | | [place], [place] | | | | | | [address] | | | | | | [phone] | | | | | | | | +--------+ + + + + | 06/30/ | Office | Cardiology | TinyRandell brown, | | | 2018 | Visit | | [address] | | | | | | [place], [place] | | | | | | [address] | | | | | | [phone] | | | | | | | | +--------+ + + + + documented as of this encounter Visit Diagnoses + + | Diagnosis | + + | Excess skin of abdomen - Primary Unspecified hypertrophic and atrophic condition of | | skin | + + documented in this encounter
--- OUTSIDE RECORDS SUMMARY | ~2019-06-01 | XMS | Encounter Summary ---
Demographics + + + | Address | [address] | | | [place] [address] | + + + | Home Phone | | + + + | Preferred Language | Unknown | + + + | Marital Status | Single | + + + | Scientologist Affiliation | NON | + + + [...] + | Katalina Padilla | ECON | [address] | | | | | [place], [place] | | | | | [address] | | + + + + + | Ellie Vang | ECON | Unknown | | + + + + + Care Team Providers + +------+ + | Care Telephone Clerk Telegraph Office Name | Role | Phone | + [...] | | 2018 | | Center at [facility] [address] | MD [address] | | | | | [address] | [place], [place] | | | | | Mailcode: [place] | [address] | | | | | [facility] and | [phone] | | | | | [place] [address] | | | | | | [place], [place] | | | | | | [address] | | | | | | [phone] | | | +--------+--------+ + + + [...] Acute Care | [facility] | | | 2019 | Encounter | | MD Demond Recinos | | | | | | [address] | | | | | | [place] | | | | | | [address] | | | | | | [phone] | | | | | | | | +--------+ + + + + | 06/24/ | Surgery | Surgery | [facility], | OPEN VENTRAL HERNIA | | 2019 | | | MD Demond Recinos [address] | REPAIR WITH | | | | | [address] | BIOLOGICAL MESH | | | | | [place] | | | | | | [address] | | | | | | [phone] | | | | | | | | +--------+ + + + + | 06/30/ | Office | Cardiology | Randell Franks, | | | 2019 | Visit | | [address] | | | | | | [place], [place] | | | | | | [address] | | | | | | [phone] | | | | | | | | +--------+ + + + + documented as of this encounter Visit Diagnoses Not on filedocumented in this encounter"
--- OUTSIDE RECORDS SUMMARY | ~2019-06-01 | XMS | Encounter Summary ---
Demographics + + + | Address | [address] | | | [place] [address] | + + + | Home Phone | | + + + | Preferred Language | Unknown | + + + | Marital Status | Single | + + + | Jehovah'S Witness Affiliation | NON | + + + | Race | White | + + + | Ethnic Group | Not or | + + + Author + + + | Author | [facility] | + + + | Organization | [facility] | + + + | Address | Unknown | + + + | Phone | Unavailable | + + + Support + + + + + | Name | Relationship | Address | Phone | + + + + + | Katalina Padilla | ECON | [address] | | | | | [place], [place] | | | | | [address] | | + + + + + | Ellie Vang | ECON | Unknown | | + + + + + Care Team Providers + +------+ + | Care Special Education Kindergarten Teacher Name | Role | Phone | [...] | | 2019 | | Preventive at [facility] | [address] | re-test? ) | | | | [address] | [place], [place] | | | | | Mailcode: [place] | [address] | | | | | [facility] | [phone] | | | | | and [place], | | | | | | [address] | | | | | | [place], [place] | | | | | | [address] | | | | | | [phone] | | | +--------+ + + + [...] Rd | | | | | | [place], [place] | | | | | | [address] | | | | | | [phone] | | | | | | | | +--------+ + + + + | 06/24/ | Surgery | Surgery | [facility], | OPEN VENTRAL HERNIA | | 2018 | | | MD Jorje [address] | REPAIR WITH | | | | | [address] | BIOLOGICAL MESH | | | | | [place], [place] | | | | | | [address] | | | | | | [phone] | | | | | | | | +--------+ + + + + | 06/30/ | Office | Cardiology | Randell Franks, | | | 2019 | Visit | | [address] | | | | | | Ave [place], [place] | | | | | | [address] | | | | | | [phone] | | | | | | | | +--------+ + + + + + +------+--------+ + + [...]
--- OUTSIDE RECORDS SUMMARY | ~2019-06-01 | XMS | Encounter Summary ---
Demographics + + + | Address | [address] | | | [place] [address] | + + + | Home Phone [...] + | Katalina Padilla | ECON | [address] | | | | | [place], [place] | | | | | [address] | | + + + + + | Ellie Vang | ECON | Unknown | | + + + + + Care Team Providers + +------+ + | Care Marketing Production Coordinator Name | Role | Phone | [...] Dx) | | | | Surgery at [facility] [address] | [place], [place] | | | | | [address] | [address] | | | | | Mailcode: [facility] | [phone] | | | | | [facility] | | | | | | and Healing, | | | | | | Building [address], 5th | | | | | | Floor [place], [place] | | | | | | [address] | | | | | | [phone] | | | +--------+---------+ + + + [...] Dr. Andie Brian Incisional hernia repair 03/01/2015 [facility]/ Dr. Cantu. Primary fascial closure and scar excision Lap gastric byp, and nilesh-en-y gastroenterostomy w/ nilesh limb 150 cm or less 8 [facility], Dr Pandey Cholecystectomy, laparoscopic Allergies Allergen Reactions [...] 50 mg by mouth once daily. CALCIUM CRB&SFO-M7-[id number]-GENIS ORAL Take 2 tablets by mouth two [...] Rd | | | | | | [place], [place] | | | | | | [address] | | | | | | [phone] | | | | | | | | +--------+ + + + + | 06/24/ | Surgery | Surgery | [facility], | OPEN VENTRAL HERNIA | | 2018 | | | MD Demond Recinos | REPAIR WITH | | | | | [address] | BIOLOGICAL MESH | | | | | [place], [place] | | | | | | [address] | | | | | | [phone] | | | | | | | | +--------+ + + + + | 06/30/ | Office | Cardiology | TinyRandell brown, | | | 2018 | Visit | | [address] | | | | | | [place], [place] | | | | | | [address] | | | | | | [phone] | | | | | | | | +--------+ + + + + documented as of this encounter Visit Diagnoses + + | Diagnosis | + + | Excess skin of abdomen - Primary Unspecified hypertrophic and atrophic condition of | | skin | + + documented in this encounter
--- OUTSIDE RECORDS SUMMARY | ~2019-06-01 | XMS | Encounter Summary ---
Demographics + + + | Address | [address] | | | [place] [address] | + + + | Home Phone | | + + + | Preferred Language | Unknown | + + + | Marital Status | Single | + + + | Anabaptist Affiliation | NON | + + + | Race | White | + + + | Ethnic Group | Not or | + + + Author + + + | Author | [facility] | + + + | Organization | [facility] | + + + | Address | Unknown | + + + | Phone | Unavailable | + + + Support + + + + + | Name | Relationship | Address | Phone | + + + + + | Katalina Padilla | ECON | [address] | | | | | [place], [place] | | | | | [address] | | + + + + + | Ellie Vang | ECON | Unknown | | + + + + + Care Team Providers + +------+ + | Care Ammonia Operator Name | Role | Phone | + +------+ + | Fadi Goodrich DO | PCP | | + +------+ + Reason for Visit + + + | Reason | Comments | + + + | Discussion | | + + + Encounter Details +--------+ + + + + | Date | Type | Department | Care Team | Description | +--------+ + + + + | 11/08/ | Telephone | Digestive Health | Shereen Georges, | Discussion | | 2014 | | Center at [facility] [address] | [facility] [address] | | | | | [address] | [place], [place] | | | | | Mailcode: Center | [address] | | | | | for Health and | | | | | | [place] [address] | | | | | | [place], [place] | | | | | | [address] | | | | | | [phone] | | | +--------+ + + + [...] Rd | | | | | | [place], [place] | | | | | | [address] | | | | | | [phone] | | | | | | | | +--------+ + + + + | 06/24/ | Surgery | Surgery | [facility], | OPEN VENTRAL HERNIA | | 2018 | | | MD Demond Recinos [address] | REPAIR WITH | | | | | [address] | BIOLOGICAL MESH | | | | | [place], [place] | | | | | | [address] | | | | | | [phone] | | | | | | | | +--------+ + + + + | 06/30/ | Office | Cardiology | Tiny, Randell, | | | 2019 | Visit | | [address] | | | | | | [place] | | | | | | [address] | | | | | | [phone] | | | | | | | | +--------+ + + + + documented as of this encounter Visit Diagnoses Not on filedocumented in this encounter"
--- OUTSIDE RECORDS SUMMARY | ~2019-06-01 | XMS | Encounter Summary ---
Demographics + + + | Address | [address] | | | [place] [address] | + + + | Home Phone [...] + | Katalina Padilla | ECON | [address] | | | | | [place], [place] | | | | | [address] | | + + + + + | Ellie Vang | ECON | Unknown | | + + + + + Care Team Providers + +------+ + | Care Service Restorer Emergency Name | Role | Phone | + +------+ + PCP | Unavailable | + +------+ + Encounter Details +--------+ + + + + | Date | Type | Department | Care Team | Description | +--------+ + + + + | 05/13/ | Results | Neurosurgery [address] | Javed Bender, | | | 1990 | Only | [address] | ,PhD | | | | | Rd Mailcode:OP14B | | | | | | [facility] | | | | | | [place], [place] | | | | | | [address] | | | | | | [phone] | | | +--------+ + + + [...] Rd | | | | | | [facility] [place] | | | | | | [address] | | | | | | [phone] | | | | | | | | +--------+ + + + + | 06/24/ | Surgery | Surgery | Chilo | OPEN VENTRAL HERNIA | | 2018 | | | MD Demond Recinos | REPAIR WITH | | | | | [address] | BIOLOGICAL MESH | | | | | [place], [place] | | | | | | [address] | | | | | | [phone] | | | | | | | | +--------+ + + + + | 06/30/ | Office | Cardiology | Randell Franks, | | | 2019 | Visit | | [address] | | | | | | [place], [place] | | | | | | [address] | | | | | | [phone] | | | | | | | | +--------+ + + + + documented as of this encounter Procedures + +--------+ + + + | Procedure Name | Priori | Date/Time | Associated Diagnosis | Comments | | | ty | | | | + +--------+ + + + | CT HEAD WO CONTRAST | Routin | 05/15/1993 | | Results for this | | | e | 11:50 AM | | procedure are in the | | | | PDT | | results section. | + +--------+ + + + | ANG/EXIST | Routin | 05/15/1993 | | Results for this | | CATH/FU/EMB/INFU | e | 9:30 AM | | procedure are in the | | | | PDT | | results section. | + +--------+ + + + | OPERATIVE RP | Routin | 05/15/1993 | | Results for this | | | e | 8:30 AM | | procedure are in the | | | | PDT | | results section. | + +--------+ + + + | ANG/EXIST | Routin | 05/14/1993 | | Results for this | | CATH/FU/EMB/INFU | e | 7:31 PM | | procedure are in the | | | | PDT | | results section. | + +--------+ + + + | ANG/EXIST | Routin | 05/14/1993 | | Results for this | | CATH/FU/EMB/INFU | e | 2:20 PM | | procedure are in the | | | | PDT | | results section. | + +--------+ + + + | OPERATIVE RP | Routin | 05/14/1993 | | Results for this | | | e | 8:00 AM | | procedure are in the | | | | PDT | | results section. | + +--------+ + + + | ANG/EXIST | Routin | 05/14/1993 | | Results for this | | CATH/FU/EMB/INFU | e | 6:45 AM | | procedure are in the | | | | PDT | | results section. | + +--------+ + + + | OPERATIVE RP | Routin | 05/13/1993 | | Results for this | | | e | 11:30 PM | | procedure are in the | | | | PDT | | results section. | + +--------+ + + + | INFU FOR THROMB | Routin | 05/13/1993 | | Results for this | | | e | 12:00 AM | | procedure are in the | | | | PDT | | results section. | + +--------+ + + + documented in this encounter Results CT HEAD WO CONTRAST (05/15/1993 11:50 AM PDT) + + + + + + | Component | Value | Ref Range | Performed | Pathologist | | | | | At | Signature | + + + + + + | CT HEAD WO | Radiologist 1: | | | | | CONTRAST | SUSHILA OTOOLE, | | | | | | Abilio-Radiologist 2: | | | | | | SUSHILA OTOOLE, | | | | | | DYLAN BHAKTA | | | | | | | | | | | | | | | | | | [birth year] CT | | | | | | SCAN OF THE BRAIN, | | | | | | WITHOUT CONTRAST: | | | | | | 05-15-93 | | | | | | Dictated: 05-16-93 | | | | | | Comparison is made with | | | | | | 05-14-93. PROCEDURE: | | | | | | No intravenous | | | | | | contrast was | | | | | | administered. | | | | | | Contiguousaxial images | | | | | | were obtained from the | | | | | | base of the skull to its | | | | | | vertex. FINDINGS: | | | | | | The previously seen | | | | | | focus of high | | | | | | attenuation in | | | | | | theposterior aspect of | | | | | | the sagittal sinus is | | | | | | again identified. | | | | | | There hasbeen no | | | | | | significant interim | | | | | | change. A small amount | | | | | | of air persistswithin | | | | | | the sagittal sinus | | | | | | (image #7). The | | | | | | ventricular system | | | | | | andbasilar cisterns | | | | | | remain diffusely | | | | | | effaced. The cortical | | | | | | sulci arepoorly defined. | | | | | | No midline shift or | | | | | | intraparenchymal lesions | | | | | | areidentified. The | | | | | | orbital contents and | | | | | | paranasal sinuses | | | | | | areunremarkable. The | | | | | | osseous and superficial | | | | | | soft tissues are | | | | | | grosslynormal. 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 END OF | | | | | | IMPRESSION: | | | | + + + + + + + + | Specimen | + + | | + + + +---------+ + + | Performing | Address | City/State/Zipcode | Phone Number | | Organization | | | | + +---------+ + + | [facility] | | | | | RADIOLOGY | | | | + +---------+ + + ANG/EXIST CHICHI/ALEENA/TATO/INFU (05/15/1993 9:30 AM PDT) + + + + + + | Component | Value | Ref Range | Performed | Pathologist | | | | | At | Signature | + + + + + + | ANG/EXIST | Radiologist 1: MARK, | | | | | CATH/FU/EMB | Jose Carlos CHANDRA, | | | | | /INFU | DYLAN | | | | | | | | | | | | 01 16 46 69 | | | | | | CATHETER CHECK OF RIGHT | | | | | | TRANSVERSE SIGMOID SINUS | | | | | | INFUSION | | | | | | CATHETER:05-15-93 | | | | | | | | | | | | Dictated: | | | | | | 05-15-93 REFERRING | | | | | | PHYSICIANS: Dr. Munguia | | | | | | Dr. Fer Velazquez | | | | | | Dr. Jordan [place]. 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 TheUrokinase | | | | | | infusion was increased | | | | | | yesterday at 1400 hours | | | | | | to 75,000units per hour. | | | | | | She returns for a | | | | | | catheter check and | | | | | | angiogram. PROCEDURE: | | | | | | The right internal | | | | | | carotid artery, cerebral | | | | | | circulation,was studied | | | | | | in the AP, lateral and | | | | | | LEARY projections. | | | | | | FINDINGS: Injection in | | | | | | the right transverse | | | | | | sinus | | | | | | demonstratesantegrade | | | | | | flow down the right | | | | | | jugular vein, although | | | | | | there is stillclot | | | | | | within the sinus. | | | | | | There is stasis of | | | | | | contrast in the region | | | | | | ofthe torcula. The | | | | | | right internal carotid | | | | | | artery angiogram shows | | | | | | somefilling of the | | | | | | superior sagittal sinus | | | | | | that then connects to | | | | | | the lefttransverse sinus | | | | | | and exits in an | | | | | | antegrade fashion. The | | | | | | majority ofthe venous | | | | | | drainage is anterior | | | | | | towards the cavernous | | | | | | sinus. Theposterior | | | | | | temporal vein fills and | | | | | | connects to the right | | | | | | transversesigmoid sinus | | | | | | junction and flows out | | | | | | through the jugular | | | | | | vein. IMPRESSION: | | | | | | Improved venous drainage | | | | | | 36 hours after | | | | | | thrombolytic therapy. | | | | | | Thepatient received | | | | | | 600,000 units initially | | | | | | and then, 50,000 units | | | | | | for 12hours. A 250,000 | | | | | | unit bolus was given | | | | | | yesterday, and the | | | | | | infusion wasincreased to | | | | | | 75,000 units per hour. | | | | | | Although clot still | | | | | | remains inthe superior | | | | | | sagittal sinus, torcula, | | | | | | and right transverse | | | | | | sinus,there is some | | | | | | antegrade flow | | | | | | established. END OF | | | | | | IMPRESSION: | | | | + + + + + + + + | Specimen | + + | | + + + +---------+ + + | Performing | Address | City/State/Zipcode | Phone Number | | Organization | | | | + +---------+ + + | [facility] | | | | | RADIOLOGY | | | | + +---------+ + + OPERATIVE RP (05/15/1993 8:30 AM PDT) + + + + + + | Component | Value | Ref Range | Performed | Pathologist | | | | | At | Signature | + + + + + + | OPERATIVE | Radiologist 1: MARK, | | | | | REPORT FOR | Jose Carlos CHANDRA, | | | | | ANGIO | DYLAN | | | | | | | | | | | | 01 [phone] 69 | | | | | | NEUROANGIOGRAM OPERATIVE | | | | | | REPORT: 05-15-93 | | | | | | | | | | | | Dictated: | | | | | | 05-15-93 PREOPERATIVE | | | | | | DIAGNOSIS: Dural sinus | | | | | | thrombosis. | | | | | | POSTOPERATIVE DIAGNOSIS: | | | | | | Same. ANESTHESIA: | | | | | | Local infiltration | | | | | | with 1% Lidocaine and | | | | | | intravenousVersed and | | | | | | Morphine Sulfate. | | | | | | DURATION OF PROCEDURE: | | | | | | Begun at 0745, | | | | | | terminated at 0830 | | | | | | hours. INDICATIONS FOR | | | | | | PROCEDURE: 18-year-old | | | | | | girl with dural | | | | | | sinusthrombosis. She | | | | | | is 36 hours into | | | | | | thrombolysis. Over the | | | | | | past 12hours, she has | | | | | | been receiving 75,000 | | | | | | units per hour. | | | | | | OPERATION #1: Catheter | | | | | | check of right | | | | | | transverse sigmoid | | | | | | sinuscatheter by | | | | | | injection of 1 cc of | | | | | | contrast and filming | | | | | | 3/3, /6. OPERATION #2: | | | | | | Catheterization of | | | | | | left femoral artery. | | | | | [...] #5: | | | | | | Catheterization of | | | | | | right CCA. OPERATION #6: | | | | | | Selective | | | | | | catheterization of right | | | | | | ICA. OPERATION #7: | | | | | | ANGIOGRAM of right | | | | | | ICA, cerebral | | | | | | circulation, in theAP, | | | | | | LEARY, and lateral | | | | | | projections. | | | | | | DESCRIPTION OF | | | | | | PROCEDURE: The patient | | | | | | was taken to the | | | | | | NeuroangioSuite and chayo | | | | | | supine on the table. | | | | | | The catheter placed in | | | | | | the righttransverse | | | | | | sigmoid sinus was | | | | | | checked by injection of | | | | | | 1 cc of contrastand | | | | | | filming. There was | | | | | | antegrade flow in the | | | | | | right transverse | | | | | | sigmoidsinus down the | | | | | | jugular vein. There | | | | | | was stasis in the | | | | | | torcular region.I then | | | | | | navigated a #5.5 Djiboutian | | | | | | Ozzy catheter through | | | | | | the leftfemoral artery | | | | | | into the abdominal aorta | | | | | | and thoracic aortic | | | | | | arch. Thecatheter was | | | | | | navigated over a #0.035" | | | | | | lindsey coated Bentson | | | | | | guide wireinto the right | | | | | | innominate artery, | | | | | | right CCA, and | | | | | | selectively into | | | | | | theright ICA. Digital | | | | | | subtraction angiograms | | | | | | were obtained in the | | | | | | AP,lateral and LEARY | | | | | | projections. Because the | | | | | | flow in the right | | | | | | transverse sigmoid sinus | | | | | | was antegrade,I elected | | | | | | to terminate the | | | | | | Urokinase infusion. | | | | | | The Heparin | | | | | | wasreversed with | | | | | | intravenous Protamine | | | | | | Sulfate, and the sheaths | | | | | | in theright femoral | | | | | | vein and left femoral | | | | | | artery were removed. | | | | | | There wereno | | | | | | complications. | | | | + + + + + + + + | Specimen | + + | | + + + +---------+ + + | Performing | Address | City/State/Zipcode | Phone Number | | Organization | | | | + +---------+ + + | [facility] DEPARTMENT OF | | | | | RADIOLOGY | | | | + +---------+ + + ANA/JAMEY CADET/ALEENA/TATO/USHA (05/14/1993 7:31 PM PDT) + + + + + + | Component | Value | Ref Range | Performed | Pathologist | | | | | At | Signature | + + + + + + | ANG/EXIST | Radiologist 1: MARK, | | | | | CATH/FU/EMB | Jose Carlos CHANDRA, | | | | | /INFU | DYLAN | | | | | | | | | | | | 08 11 45 69 | | | | | | CATHETER CHECK AND | | | | | | MOVEMENT OF CATHETER IN | | | | | | RIGHT TRANSVERSE | | | | | | SINUS:05-14-93 AT 0700 | | | | | | HOURS PREOPERATIVE | | | | | | DIAGNOSIS: Dural sinus | | | | | | thrombosis. | | | | | | POSTOPERATIVE DIAGNOSIS: | | | | | | Same. OPERATION #1: | | | | | | Angiogram of right | | | | | | transverse and superior | | | | | | sagittalsinus; injection | | | | | | of 1 cc of contrast | | | | | | through Tracker | | | | | | catheter. OPERATION #2: | | | | | | Movement of Tracker | | | | | | catheter proximal within | | | | | | sigmoidand transverse | | | | | | sinus on the right side. | | | | | | INTERPRETIVE REPORT: | | | | | | FINDINGS: At 0700 | | | | | | hours, the catheter | | | | | | check demonstrated | | | | | | intervalresolution of | | | | | | thrombus within the | | | | | | superior sagittal sinus, | | | | | | torcularregion, and | | | | | | right transverse sinus. | | | | | | There is still some | | | | | | stasis offlow. The | | | | | | catheter was moved more | | | | | | proximally in the | | | | | | sigmoidtransverse sinus | | | | | | region on the right | | | | | | side. CATHETER CHECK: | | | | | | 05-14-93 AT 1400 | | | | | | HOURS PREOPERATIVE | | | | | | DIAGNOSIS: Dural sinus | | | | | | thrombosis. | | | | | | POSTOPERATIVE DIAGNOSIS: | | | | | | Same. OPERATION #1: | | | | | | Angiogram of right | | | | | | transverse and superior | | | | | | sagittalsinus; injection | | | | | | of 1 cc of contrast | | | | | | through Tracker | | | | | | catheter. OPERATION #2: | | | | | | Movement of Tracker | | | | | | catheter proximal within | | | | | | sigmoidand transverse | | | | | | sinus on the right side. | | | | | | INTERPRETIVE REPORT: | | | | | | FINDINGS: There has | | | | | | been continued | | | | | | resolution of thrombus | | | | | | within theright | | | | | | transverse sinus and | | | | | | sigmoid sinus since the | | | | | | catheter waswithdrawn | | | | | | into this segment. | | | | | | There is still stasis | | | | | | of flow, but thereis | | | | | | clearing of contrast in | | | | | | this region. A 500,000 | | | | | | unit bolus ofUrokinase | | | | | | was infused and the | | | | | | infused was then | | | | | | increased to 75,000units | | | | | | per hour. | | | | + + + + + + + + | Specimen | + + | | + + + +---------+ + + | Performing | Address | City/State/Zipcode | Phone Number | | Organization | | | | + +---------+ + + | [facility] | | | | | RADIOLOGY | | | | + +---------+ + + ANG/EXIST CATH/FU/EMB/INFU (05/14/1993 2:20 PM PDT) + + + + + + | Component | Value | Ref Range | Performed | Pathologist | | | | | At | Signature | + + + + + + | ANG/EXIST | Radiologist 1: MARK | | | | | CATH/FU/EMB | Jose Carlos CHANDRA, | | | | | /INFU | DYLAN | | | | | | | | | | | | 01 16 46 69 | | | | | | CATHETER CHECK AND | | | | | | MOVEMENT OF CATHETER IN | | | | | | RIGHT TRANSVERSE | | | | | | SINUS:05-14-93 AT 0700 | | | | | | HOURS PREOPERATIVE | | | | | | DIAGNOSIS: Dural sinus | | | | | | thrombosis. | | | | | | POSTOPERATIVE DIAGNOSIS: | | | | | | Same. OPERATION #1: | | | | | | Angiogram of right | | | | | | transverse and superior | | | | | | sagittalsinus; injection | | | | | | of 1 cc of contrast | | | | | | through Tracker | | | | | | catheter. OPERATION #2: | | | | | | Movement of Tracker | | | | | | catheter proximal within | | | | | | sigmoidand transverse | | | | | | sinus on the right side. | | | | | | INTERPRETIVE REPORT: | | | | | | FINDINGS: At 0700 | | | | | | hours, the catheter | | | | | | check demonstrated | | | | | | intervalresolution of | | | | | | thrombus within the | | | | | | superior sagittal sinus, | | | | | | torcularregion, and | | | | | | right transverse sinus. | | | | | | There is still some | | | | | | stasis offlow. The | | | | | | catheter was moved more | | | | | | proximally in the | | | | | | sigmoidtransverse sinus | | | | | | region on the right | | | | | | side. CATHETER CHECK: | | | | | | 05-14-93 AT 1400 | | | | | | HOURS PREOPERATIVE | | | | | | DIAGNOSIS: Dural sinus | | | | | | thrombosis. | | | | | | POSTOPERATIVE DIAGNOSIS: | | | | | | Same. OPERATION #1: | | | | | | Angiogram of right | | | | | | transverse and superior | | | | | | sagittalsinus; injection | | | | | | of 1 cc of contrast | | | | | | through Tracker | | | | | | catheter. OPERATION #2: | | | | | | Movement of Tracker | | | | | | catheter proximal within | | | | | | sigmoidand transverse | | | | | | sinus on the right side. | | | | | | INTERPRETIVE REPORT: | | | | | | FINDINGS: There has | | | | | | been continued | | | | | | resolution of thrombus | | | | | | within theright | | | | | | transverse sinus and | | | | | | sigmoid sinus since the | | | | | | catheter waswithdrawn | | | | | | into this segment. | | | | | | There is still stasis | | | | | | of flow, but thereis | | | | | | clearing of contrast in | | | | | | this region. A 500,000 | | | | | | unit bolus ofUrokinase | | | | | | was infused and the | | | | | | infused was then | | | | | | increased to 75,000units | | | | | | per hour. | | | | + + + + + + + + | Specimen | + + | | + + + +---------+ + + | Performing | Address | City/State/Zipcode | Phone Number | | Organization | | | | + +---------+ + + | [facility] DEPARTMENT OF | | | | | RADIOLOGY | | | | + +---------+ + + OPERATIVE RP (05/14/1993 8:00 AM PDT) + + + + + + | Component | Value | Ref Range | Performed | Pathologist | | | | | At | Signature | + + + + + + | OPERATIVE | Radiologist 1: MARK, | | | | | REPORT FOR | Jose Carlos CHANDRA, | | | | | ANGIO | DYLAN | | | | | | | | | | | | 16 46 69 | | | | | | NEUROANGIOGRAM OPERATIVE | | | | | | REPORT: 05-14-93 | | | | | | | | | | | | Dictated: | | | | | | 05-14-93 PREOPERATIVE | | | | | | DIAGNOSIS: Dural sinus | | | | | | thrombosis. | | | | | | POSTOPERATIVE DIAGNOSIS: | | | | | | Same. DURATION OF | | | | | | PROCEDURE: The | | | | | | procedure was begun at | | | | | | 0645 and terminatedat | | | | | | 0800 hours. Fluoro | | | | | | time: [employer] 7.4 | | | | | | minutes. INDICATIONS FOR | | | | | | PROCEDURE: | | | | | | 18-year-old girl | | | | | | undergoing | | | | | | thrombolytictherapy of | | | | | | dural sinus thrombosis. | | | | | | She received 600,000 | | | | | | units ofUrokinase last | | | | | | night and has been | | | | | | receiving 50,000 units | | | | | | through aninfusion | | | | | | catheter over a segment | | | | | | from the sagittal sinus | | | | | | to the rightsigmoid | | | | | | sinus. She is referred | | | | | | for follow-up | | | | | | angiography. STUDY: | | | | | | Catheter check of | | | | | | right transverse sinus | | | | | | catheter in the RAOand | | | | | | lateral projections. | | | | | | DESCRIPTION OF | | | | | | PROCEDURE: The patient | | | | | | was taken to the | | | | | | NeuroangioSuite. A | | | | | | cath-position check was | | | | | | obtained by injecting 1 | | | | | | cc ofcontrast into the | | | | | | sinuses in the LEARY and | | | | | | lateral projections. | | | | | | TheTracker catheter | | | | | | was withdrawn such that | | | | | | the distal tip was at | | | | | | thetorcular region, and | | | | | | the proximal tip was at | | | | | | the sigmoid | | | | | | sinusadjacent to the | | | | | | jugular bulb. The | | | | | | infusion was increased | | | | | | to 75,000units of | | | | | | Urokinase per hour. | | | | + + + + + + + + | Specimen | + + | | + + + +---------+ + + | Performing | Address | City/State/Zipcode | Phone Number | | Organization | | | | + +---------+ + + | [facility] | | | | | RADIOLOGY | | | | + +---------+ + + ANG/EXIST CHICHI/ALEENA/TATO/INFU (05/14/1993 6:45 AM PDT) + + + + + + | Component | Value | Ref Range | Performed | Pathologist | | | | | At | Signature | + + + + + + | ANG/EXIST | Radiologist 1: MARK, | | | | | CATH/FU/EMB | Jose Carlos CHANDRA, | | | | | /INFU | DYLAN | | | | | | | | | | | | 01 16 46 69 | | | | | | CATHETER CHECK: | | | | | | 05-14-93 | | | | | | | | | | | | Dictated: 05-14-93 | | | | | | REFERRING PHYSICIANS: | | | | | | Dr. Fer [place]. | | | | | | Dr. Nilda Velazquez, | | | | | | Dr.Wayne Goodman. CLINICAL | | | | | | INFORMATION: | | | | | | 18-year-old girl with | | | | | | dural sinus | | | | | | thrombosis.Last night, | | | | | | she received 600,000 | | | | | | units of Urokinase. | | | | | | She has beenreceiving | | | | | | 50,000 units per hour | | | | | | through a Tracker | | | | | | infusion catheterover | | | | | | the past six hours. | | | | | | She is referred for | | | | | | follow-up angiography. | | | | | | FINDINGS: Right | | | | | | transverse sinus | | | | | | injection demonstrates | | | | | | clearing ofclot in the | | | | | | distal superior sagittal | | | | | | sinus adjacent to the | | | | | | torcula.There is also | | | | | | some increased washout | | | | | | within the right | | | | | | transversesinus, | | | | | | although a large amount | | | | | | of thrombus is still | | | | | | present. Thecatheter | | | | | | was withdrawn slightly | | | | | | such that the distal tip | | | | | | was at thetorcula, and | | | | | | the proximal tip was in | | | | | | the sigmoid sinus | | | | | | adjacent to thejugular | | | | | | bulb. The infusion was | | | | | | increased to 75,000 | | | | | | units per hour. | | | | | | IMPRESSION: Interval | | | | | | partial clearing of | | | | | | thrombus within superior | | | | | | sagittal sinusand right | | | | | | transverse sigmoid | | | | | | sinuses. END OF | | | | | | IMPRESSION: | | | | + + + + + + + + | Specimen | + + | | + + + +---------+ + + | Performing | Address | City/State/Zipcode | Phone Number | | Organization | | | | + +---------+ + + | [facility] DEPARTMENT OF | | | | | RADIOLOGY | | | | + +---------+ + + OPERATIVE RP (05/13/1993 11:30 PM PDT) + + + + + + | Component | Value | Ref Range | Performed | Pathologist | | | | | At | Signature | + + + + + + | OPERATIVE | Radiologist 1: MARK, | | | | | REPORT FOR | Jose Carlos CHANDRA, | | | | | ANGIO | DYLAN | | | | | | | | | | | | 16 46 69 | | | | | | NEUROANGIOGRAM OPERATIVE | | | | | | REPORT: 05-13-93 | | | | | | | | | | | | DICTATED: | | | | | | 05-13-93 PREOPERATIVE | | | | | | DIAGNOSIS: Dural sinus | | | | | | thrombosis. | | | | | | POSTOPERATIVE DIAGNOSIS: | | | | | | Same. ANESTHESIA: | | | | | | General endotracheal. | | | | | | DURATION OF PROCEDURE: | | | | | | Begun at 0815, | | | | | | terminated at 2330 | | | | | | hours.Fluoro time: | | | | | | [employer] 39.5 minutes. | | | | | | INDICATIONS FOR | | | | | | PROCEDURE: 18-year-old | | | | | | girl thirteen days | | | | | | postpartumhas developed | | | | | | severe headaches, nausea | | | | | | and vomiting over the | | | | | | last twoweeks. 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 She is | | | | | | referredfor diagnostic | | | | | | angiography. CT scan | | | | | | is diagnostic of | | | | | | sagittal sinusthrombosis | | | | | | and right transverse | | | | | | sinus thrombosis. The | | | | | | patient's grandmother | | | | | | and uncle were given a | | | | | | full explanation ofthe | | | | | | procedure including the | | | | | | risks, benefits, | | | | | | alternatives | | | | | | andindications. | | | | | | Informed consent was | | | | | | obtained from the | | | | | | patient'sgrandmother who | | | | | | was acting as guardian. | | | | | | All of her questions | | | | | | wereanswered in detail. | | | | | | OPERATION #1: | | | | | | Surgical catheterization | | | | | | of the left femoral | | | | | | artery. OPERATION #2: | | | | | | Catheterization of | | | | | | thoracic aortic arch. | | | | | | OPERATION #3: | | | | | | Catheterization of right | | | | | | innominate artery. | | | | | | OPERATION #4: | | | | | | Catheterization of right | | | | | | CCA. OPERATION #5: | | | | | | Selective | | | | | | catheterization of right | | | | | | ICA. OPERATION #6: | | | | | | Angiogram of right ICA | | | | | | in the AP, lateral and | | | | | | RAOprojections. | | | | | | OPERATION #7: | | | | | | Catheterization of right | | | | | | femoral vein. OPERATION | | | | | | #8: Catheterization | | | | | | of inferior, then | | | | | | superior vena cava. | | | | | | OPERATION #9: | | | | | | Catheterization of right | | | | | | jugular vein. OPERATION | | | | | | #10: Catheterization | | | | | | of right transverse | | | | | | sigmoid sinus. OPERATION | | | | | | #11: Catheterization | | | | | | of right superior | | | | | | sagittal sinus. | | | | | | OPERATION #12: | | | | | | Superior sagittal | | | | | | sinus and right | | | | | | transverse sigmoidsinus | | | | | | angiograms in the | | | | | | lateral AP and LEARY | | | | | | projections. OPERATION | | | | | | #13: Thrombolysis of | | | | | | superior sagittal sinus | | | | | | and righttransverse | | | | | | sigmoid sinus with | | | | | | 600,000 units of | | | | | | Urokinase given by50,000 | | | | | | unit boluses over two | | | | | | hours using an EDM | | | | | | infusion catheter | | | | | | (3French, 6 cm distal | | | | | | port) and a Tracker | | | | | | catheter with a 9 cm | | | | | | infusionlength. | | | | | | DESCRIPTION OF | | | | | | PROCEDURE: The patient | | | | | | was taken to the | | | | | | [facility] and chayo | | | | | | supine on the table. | | | | | | Because of severe | | | | | | agitation,general | | | | | | endotracheal anesthesia | | | | | | was administered. A | | | | | | #19 gauge singlewall | | | | | | puncture needle was | | | | | | introduced into the left | | | | | | femoral artery and | | | | | | a#5.5 Djiboutian sheath was | | | | | | secured into place. In | | | | | | a similar fashion, | | | | | | a#7.0 Djiboutian sheath was | | | | | | secured into the right | | | | | | femoral vein. A | | | | | | #5.5French Ozzy | | | | | | catheter was navigated | | | | | | over a #0.035 lindsey | | | | | | coatedBentson guide wire | | | | | | into the left femoral | | | | | | artery, abdominal aorta, | | | | | | andthe thoracic aortic | | | | | | arch. The right | | | | | | innominate, right CCA, | | | | | | right ICAwere | | | | | | selectively | | | | | | catheterized. A | | | | | | digital subtraction | | | | | | angiogram wasobtained in | | | | | | the AP, lateral and LEARY | | | | | | projections. The | | | | | | catheter waswithdrawn. | | | | | | The patient was | | | | | | heparinized with 5,000 | | | | | | units of heparin and | | | | | | given1,000 units q. 1 | | | | | | hour thereafter. | | | | | | ACT levels were | | | | | | appropriatelyelevated. | | | | | | The #7 Djiboutian Brite | | | | | | catheter was then | | | | | | navigated over a #0.035" | | | | | | tefloncoated Bentson | | | | | | guide wire into the | | | | | | right femoral vein to | | | | | | theinferior, then | | | | | | superior vena cava, and | | | | | | up into the jugular vein | | | | | | to thejugular bulb. I | | | | | | initially tried to pass | | | | | | the Tracker #18 | | | | | | catheter witha 9 cm | | | | | | distal infusion tip over | | | | | | a #0.014" flex tip | | | | | | taper guide wire,but I | | | | | | could not get the | | | | | | catheter to enter into | | | | | | the sigmoid sinus. | | | | | | Iremoved this catheter | | | | | | and used the EDM | | | | | | infusion catheter with a | | | | | | 6 cminfusion length and | | | | | | navigated this over the | | | | | | #0.018" flex-T guide | | | | | | wireprovided with the | | | | | | catheter, and I was able | | | | | | to push this through | | | | | | theright sigmoid sinus | | | | | | into the transverse | | | | | | sinus. Venograms | | | | | | wereobtained in the AP | | | | | | and lateral projections. | | | | | | I could get this | | | | | | catheterto enter into | | | | | | the superior sagittal | | | | | | sinus above the torcula. | | | | | | I theninfused 200,000 | | | | | | units of Urokinase in | | | | | | 50,000 increment boluses | | | | | | at boththe distal tip | | | | | | and along the side | | | | | | ports. Some degree of | | | | | | thrombolysiswas obtained | | | | | | and I was then able to | | | | | | navigate the Tracker | | | | | | catheter witha 9 cm | | | | | | distal tip port over the | | | | | | flex-T guide wire, | | | | | | which was verystiff, and | | | | | | navigated this into the | | | | | | superior sagittal | | | | | | sinus. Theinfusion | | | | | | length was from the | | | | | | junction between the | | | | | | posterior third | | | | | | andanterior two-thirds | | | | | | of the sagittal sinus. | | | | | | I then infused | | | | | | Urokinaseat 50,000 units | | | | | | per hour along this | | | | | | portion. The distal | | | | | | port was inthe superior | | | | | | sagittal sinus, and the | | | | | | proximal port was right | | | | | | at thesigmoid sinus | | | | | | junction with the | | | | | | transverse sinus. The | | | | | | patient wasextubated and | | | | | | the catheter was | | | | | | secured. | | | | + + + + + + + + | Specimen | + + | | + + + +---------+ + + | Performing | Address | City/State/Zipcode | Phone Number | | Organization | | | | + +---------+ + + | [facility] DEPARTMENT OF | | | | | RADIOLOGY | | | | + +---------+ + + INFU FOR THROMB (05/13/1993 12:00 AM PDT) + + + + + + | Component | Value | Ref Range | Performed | Pathologist | | | | | At | Signature | + + + + + + | INFUSION | Radiologist 1: MARK, | | | | | FOR | Jose Carlos CHANDRA, | | | | | THROMBOLYSI | DYLAN | | | | | S | | | | | | | [phone] | | | | | | CEREBRAL ANGIOGRAM AND | | | | | | DURAL SINUS | | | | | | THROMBOLYSIS: 05-13-93 | | | | | | | | | | | | | | | | | | Dictated: 05-13-93 | | | | | | REFERRING PHYSICIANS: | | | | | | Dr. Fer [address]. | | | | | | Aime [address] Dr. | | | | | | Carrie. CLINICAL | | | | | | INFORMATION: | | | | | | 18-year-old girl is | | | | | | thirteen days | | | | | | .In the | | | | | | period, she | | | | | | developed severe | | | | | | headaches, nausea | | | | | | andvomiting. Over the | | | | | | last thirty-six hours, | | | | | | she has had a left | | | | | | armplegia. Over the | | | | | | past two hours, she is | | | | | | developing decreasing | | | | | | mentalstatus and | | | | | | lethargy. 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 | | | | | | The patient is | | | | | | referred for a | | | | | | diagnostic angiography | | | | | | andthrombolytic therapy. | | | | | | PROCEDURE: The right | | | | | | ICA was studied in the | | | | | | AP, lateral and | | | | | | RAOprojections. The | | | | | | superior sagittal, right | | | | | | transverse, and | | | | | | rightsigmoid sinuses | | | | | | were treated by | | | | | | thrombolysis with a | | | | | | total of 600,000units of | | | | | | Urokinase delivered | | | | | | through a EDM catheter | | | | | | with a 6 cm sideport | | | | | | length and a Tracker | | | | | | catheter with a 9 cm | | | | | | side port | | | | | | length.Infusion was | | | | | | given over a two hour | | | | | | period; 600,000 units | | | | | | wereadministered. | | | | | | Sinograms were | | | | | | obtained during the | | | | | | course of | | | | | | thethrombolysis. An | | | | | | infusion of 50,000 | | | | | | units/hr was begun. | | | | | | FINDINGS: The right | | | | | | ICA injection | | | | | | demonstrates complete | | | | | | thrombosis ofthe | | | | | | superior sagittal sinus. | | | | | | The straight sinus is | | | | | | open and emptiesinto | | | | | | the torcula which drains | | | | | | to the left transverse | | | | | | sigmoid sinus.There is | | | | | | minimal filling and | | | | | | stasis within the right | | | | | | transversesigmoid sinus. | | | | | | No arterial | | | | | | abnormalities are | | | | | | identified. The | | | | | | primaryvenous drainage | | | | | | is anteriorly towards | | | | | | the cavernous sinus. | | | | | | Venogramsdemonstrate | | | | | | stasis of contrast | | | | | | within the superior | | | | | | sagittal sinus,torcula | | | | | | region, and right | | | | | | transverse and sigmoid | | | | | | sinuses. There isflow | | | | | | antegrade in the left | | | | | | transverse sigmoid | | | | | | sinuses. 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 The | | | | | | patient is | | | | | | undergoingthrombolytic | | | | | | therapy. END OF | | | | | | IMPRESSION: | | | | + + + + + + + + | Specimen | + + | | + + + +---------+ + + | Performing | Address | City/State/Zipcode | Phone Number | | Organization | | | | + +---------+ + + | [facility] DEPARTMENT OF | | | | | RADIOLOGY | | | | + +---------+ + + documented in this encounter Visit Diagnoses Not on filedocumented in this encounter
--- OUTSIDE RECORDS SUMMARY | ~2019-06-01 | XMS | Encounter Summary ---
Demographics + + + | Address | [address] | | | [place] [address] | + + + | Home Phone | | + + + | Preferred Language | Unknown | + + + | Marital Status | Single | + + + | Congregational Affiliation | NON | + + + [...] + | Katalina Padilla | ECON | [address] | | | | | [place], [place] | | | | | [address] | | + + + + + | Ellie Vang | ECON | Unknown | | + + + + + Care Team Providers + +------+ + | Care Legislative Analyst Name | Role | Phone | + +------+ + | Kenyatta Cardenas MD | PCP | | + +------+ + Encounter Details +--------+ + + + + | Date | Type | Department | Care Team | Description | +--------+ + + + + | 03/01/ | Procedure | Diagnostic Imaging | | | | 2019 | Pass | Services at [facility] | | | | | | [address] | | | | | | Lesly Gutiérrez Mailcode: | | | | | | [address] [facility] | | | | | | [place], [place] | | | | | | [address] | | | | | | [phone] | | | +--------+ + + + [...] [address] | | | | | | [place], [place] | | | | | | [address] | | | | | | [phone] | | | | | | | | +--------+ + + + + | 06/24/ | Surgery | Surgery | Chilo | OPEN VENTRAL HERNIA | | 2018 | | | MD [address] | REPAIR WITH | | | | | [address] | BIOLOGICAL MESH | | | | | [place], [place] | | | | | | [address] | | | | | | [phone] | | | | | | | | +--------+ + + + + | 06/30/ | Office | Cardiology | Randell Franks, | | | 2018 | Visit | | MD [address] | | | | | | [address] | | | | | | [address] | | | | | | [phone] | | | | | | | | +--------+ + + + + documented as of this encounter Visit Diagnoses Not on filedocumented in this encounter"
--- OUTSIDE RECORDS SUMMARY | ~2019-06-01 | XMS | Encounter Summary ---
Demographics + + + | Address | [address] | | | [place] [address] | + + + | Home Phone [...] + | Katalina Padilla | ECON | [address] | | | | | [place], [place] | | | | | [address] | | + + + + + | Ellie Vang | ECON | Unknown | | + + + + + Care Team Providers + +------+ + | Care Roll Grinder Name | Role | Phone | + +------+ + | Fadi Goodrich DO | PCP | | + +------+ + Encounter Details +--------+ + + + + | Date | Type | Department | Care Team | Description | +--------+ + + + + | 07/06/ | Abstract | Digestive Health | Clinic, Surgery | | | 2016 | | [place] [facility] [address] | | | | | | [address] | | | | | | Mailcode: [place] | | | | | | [facility] and | | | | | | [facility] [address] | | | | | | [place], [place] | | | | | | [address] | | | | | | [phone] | | | +--------+ + + + [...] [address] | | | | | | [facility] [place] | | | | | | [address] | | | | | | [phone] | | | | | | | | +--------+ + + + + | 06/24/ | Surgery | Surgery | Chilo, | OPEN VENTRAL HERNIA | | 2018 | | | MD [address] | REPAIR WITH | | | | | [address] | BIOLOGICAL MESH | | | | | [place], [place] | | | | | | [address] | | | | | | [phone] | | | | | | | | +--------+ + + + + | 06/30/ | Office | Cardiology | Randell Franks, | | | 2019 | Visit | | MD [address] | | | | | | [address] [place], [place] | | | | | | [address] | | | | | | [phone] | | | | | | | | +--------+ + + + + documented as of this encounter Visit Diagnoses Not on filedocumented in this encounter"
--- OUTSIDE RECORDS SUMMARY | ~2019-06-01 | XMS | Encounter Summary ---
Demographics + + + | Address | [address] | | | [place] [address] | + + + | Home Phone [...] [place], [place] | | | | | [address] | | + + + + + | Ellie Vang | ECON | Unknown | | + + + + + Care Team Providers + +------+ + | Care Ramp Service Agent Name | Role | Phone | + +------+ + | Fadi Goodrich DO | PCP | | + +------+ + Encounter Details +--------+ + + + + | Date | Type | Department | Care Team | Description | +--------+ + + + + | 12/05/ | Abstract | Cardiology | Randell Franks, | | | 2016 | | [facility]ive at [facility] | MD [address] | | | | | [address] | Ave [place], [place] | | | | | Mailcode: CH9[facility] | [address] | | | | | [facility] | [phone] | | | | | and Healing, | | | | | | [address] | | | | | | [place], [place] | | | | | | [address] | | | | | | [phone] | | | +--------+ + + + [...] [address] | | | | | | [place], [place] | | | | | | [address] | | | | | | [phone] | | | | | | | | +--------+ + + + + | 06/24/ | Surgery | Surgery | Chilo, | OPEN VENTRAL HERNIA | | 2018 | | | MD Jor[id number] | REPAIR WITH | | | | | [address] | BIOLOGICAL MESH | | | | | [place], [place] | | | | | | [address] | | | | | | [phone] | | | | | | | | +--------+ + + + + | 06/30/ | Office | Cardiology | Randell Franks, | | | 2019 | Visit | | MD [address] | | | | | | [address] [place], [place] | | | | | | [address] | | | | | | [phone] | | | | | | | | +--------+ + + + + documented as of this encounter Visit Diagnoses Not on filedocumented in this encounter"
--- OUTSIDE RECORDS SUMMARY | ~2019-06-01 | XMS | Encounter Summary ---
Demographics + + + | Address | [address] | | | [place] [address] | + + + | Home Phone [...] + | Katalina Padilla | ECON | [address] | | | | | [place], [place] | | | | | [address] | | + + + + + | Ellie Vang | ECON | Unknown | | + + + + + Care Team Providers + +------+ + | Care Copyman Name | Role | Phone | + +------+ + | Fadi Goodrich DO | PCP | | + +------+ + Reason for Visit + + + | Reason | Comments | + + + | Follow-up visit | | + + + Office Visit - E/M Services (Routine) +--------+ + + + + + | Status | Reason | Specialty | Diagnoses / | Referred By | Referred To | | | | | Procedures | Contact | Contact | +--------+ + + + + + | Closed | BAR: | Surgery | Diagnoses | Analisa Franks | | | Scheduled | | Essential | MD Randell | [facility] | | | with KEYSEATER OPERATOR | | hypertension | [address] | [address] | | | | | Right | [address] | [address] | | | | | heart | [place], [place] | Mailcode: | | | | | failure | [phone] | Center for | | | | | ([facility]) Type | Phone: | Health and | | | | | 2 diabetes | [phone] | Healing, | | | | | mellitus | Fax: | Building 2 | | | | | without | [phone] | [place], [place] | | | | | complication | | [address] | | | | | , with | | Phone: | | | | | long-term | | | | | | | current use | | Fax: | | | | | of insulin | | [phone] | | | | | ([facility]) | | | | | | | Procedures | | | | | | | CONSULT TO | | | | | | | BARIATRIC | | | | | | | SURGERY | | | +--------+ + + + + + Encounter Details +--------+---------+ + + + | Date | Type | Department | Care Team | Description | +--------+---------+ + + + | 10/12/ | Office | Digestive Health | Orquidea Cristobal, | History of Nilesh-en-Y | | 2019 | Visit | Center at [facility] [address] | [employer] [address] | gastric bypass | | | | [address] | Ave [place], [place] | (Primary Dx); | | | | Mailcode: [place] | [address] | Intertriginous | | | | for Health and | [phone] | candidiasis | | | | [facility] [address] | | | | | | [place], [place] | | | | | | [address] | | | | | | [phone] | | | +--------+---------+ + + + [...] + + + | Blood Pressure | 102/69 | 10/12/2018 2:32 PM | | | | | PDT | | + + + + + | Pulse | 97 | 10/12/2018 2:32 PM | | | | | PDT | | + + + + + | Temperature | 36.4 C (97.5 F) | 10/12/2018 2:32 PM | | | | | PDT [...] + + + + | Weight | 133.9 kg (295 lb 3.1 | 10/12/2018 2:32 PM | | | | oz) | PDT | | + + + + + | Height | - | - | | + + + + + | Body Mass Index | 59.62 | 06/16/2018 3:28 PM | | | [...] of this encounter Patient Instructions Patient Instructions Orquidea Cristobal FNP - 10/12/2018 2:35 PM PDT--continue your protein goal of 60-80 g/day --continue your fluid goal of at least 64 oz/day --continue getting a regular source of exercise --have your blood work done today and we will contact you with the results --come back to see us for your 1 year follow up visit documented in this encounter Progress Notes Orquidea Cristobal FNP - 10/12/2018 2:35 PM PDTFormatting of this note might be different f rom the original. BARIATRIC SURGERY FOLLOW-UP Subjective: Elzbieta Cristina is a 43 y.o. patient who underwent a Nilesh en y gastric bypass on 03/01/[address] Pandey. The patient is now 6 months post operative and is now doing well. She developed persistent nausea and vomiting postop, she underwent EGD 06/23/18 and was fou nd to have a mild stricture, they performed dilation and since that time she has been asympt omatic. Last office visit reviewed. Has a new PCP, Dr. Cardenas in [facility]. Bariatric Measures: Activity: walking 1.5-2 miles daily Fluids: 64+ oz/day Protein: 60+ g/day Symptoms of GERD? no Currently on GERD medication? no Any foods in particular giving you trouble? Carbohydrates and fast foods Rashes? Yes in pannus and abdominal folds, using cornstarch powder but having worsening pro blems with more tissue from weight loss Bariatric Medications: MVI with iron twice daily: yes Calcium citrate 1500mg daily: yes Vitamin D 1000 mg daily : yes B12 500mcg SL daily or monthly shot: yes H2RB/PPI daily: no Symptoms: Nausea: None Dysphagia: None Vomiting: None Heartburn: None Abd Pain: intermittently due to ventral hernias; otherwise none Constipation: None Diarrhea: None Weight at time of surgery : 372--> 319-->295 (total 77 lb weight loss) BP 102/69 (BP Location: Right lower arm, Patient Position: Sitting) | Pulse 97 | Temp 36. 4 C (97.5 F) (Oral) | Wt 133.9 kg (295 lb 3.1 oz) | BMI 59.62 kg/m | BSA 2.36 m History: Past Medical History: Diagnosis Date Abdominal [...] index of 70 and over in adult ([facility]) Myalgia and myositis Nausea Neck pain Numbness Osteoarthritis of knee Palpitations Pneumonia Shortness of breath Staphylococcal infection Stroke ([facility]) TIA (transient ischemic attack) due to Bromocriptine Tinea corporis UTI (urinary tract infection) Past Surgical History Procedure Laterality Date Tonsillectomy and adenoidectomy Appendectomy, open 2010 Umbilical hernia repair 2010 Treatment of ankle fracture with screws remaining Incision and drainage of wound abscess x2 midline transverse wound s/p open appendectomy 2010 Ventral hernia repair 10/2012 Dr. Andie Brian Incisional hernia repair 03/01/2015 [facility]/ Dr. Cantu. Primary fascial closure and scar excision Lap gastric byp, and nilesh-en-y gastroenterostomy w/ nilesh limb 150 cm or less 8 [facility] Social History Social History Marital status: Single Spouse name: N/A Number of children: 1 Years of education: N/A Occupational History disabled None Social History Main Topics Smoking status: Former Smoker Smokeless tobacco: Never Used Comment: former social smoker Alcohol use No Drug use: No Sexual activity: Not on file Other Topics Concern Not on file Social History Narrative Updated 11/09/15 She lives in [place] with her mother and her sister (also her caregiver) lives in an apa rtment/duplex below. She has 2 grandchildren (age 4 and 7) who live with her daughter and son-in-law Her boyfriend lives in [place] HFpEF, DM2, HTN, Sleep Apnea (unable to tolerate CPAP), Hypothyroidism, Severe Obesity (Li fetime max weight 495 lbs) Last seen by [...] program here and refer her to our marketing analytics specialist who also has expertise in physical [...] Disease Sister lupus Anesthesia problems Neg Hx Allergies Allergies Allergen Reactions Amoxicillin Unknown Benadrilina [Diphenhydramine Hcl] Hives Parlodel [Bromocriptine] Unknown Blood clots Penicillin Hives Medications Current Outpatient Prescriptions: ascorbic acid (VITAMIN C) 500 mg Oral tablet, Take 500 mg by mouth once daily. , Disp: , Rfl: aspirin EC 81 mg oral tablet,delayed release (DR/EC), Take 81 mg by mouth once daily., Disp : , Rfl: atenolol 25 mg oral tablet, Take 50 mg by mouth once daily. , Disp: , Rfl: BELBUCA 300 mcg buccal film, , Disp: , Rfl: buprenorphine HCl 2 mg sublingual tablet, sublingual, Place under tongue once daily., Disp: , Rfl: CALCIUM CRB&CYX-D4-FIS26-GENIS ORAL, Take 2 tablets by mouth two times daily., Disp: , Rfl: cyanocobalamin (vitamin B-12) 5,000 mcg oral tablet, IR and ER, biphasic, Take by mouth chery ry thirty days. , Disp: , Rfl: docusate sodium (STOOL SOFTENER ORAL), Take 200 mg by mouth. Equate brand per patient, Disp : , Rfl: ergocalciferol (VITAMIN D2) 50,000 unit oral capsule, Take 1 capsule by mouth every seven d ays., Disp: , Rfl: FA/mv,Ca,iron,min/lycopene/lut (MULTIVITAL ORAL), Take by mouth., Disp: , Rfl: Ferrous Gluconate 324 mg total salt (38 mg elemental iron) oral tablet, Take 1 tablet by mo ut three times daily., Disp: 90 tablet, Rfl: 3 gabapentin 300 mg oral capsule, Take 300 mg by mouth four times daily., Disp: , Rfl: hydrOXYzine pamoate 25 mg oral capsule, Take 25 mg by mouth every four hours as needed., Di sp: , Rfl: Lactobac 40/Bifido 3/S.thermop (PROBIOTIC ORAL), Take by mouth., Disp: , Rfl: lurasidone (LATUDA) 20 mg oral tablet, Take 40 mg by mouth once daily., Disp: , Rfl: magnesium oxide 400 mg oral tablet, Take 400 mg by mouth once daily., Disp: , Rfl: metFORMIN 1,000 mg oral tablet, two times daily. See directions below, Disp: , Rfl: mirtazapine 15 mg oral tablet, Take 15 mg by mouth once daily in the evening., Disp: , Rfl: OLANZapine 15 mg oral tablet, Take 30 mg by mouth once daily at bedtime., Disp: , Rfl: PARoxetine 10 mg oral tablet, Take 20 mg by mouth once daily. , Disp: , Rfl: phentermine 37.5 mg oral tablet, Take 1 tablet by mouth once daily in the morning. Administ er before breakfast., Disp: 90 tablet, Rfl: 3 piroxicam 10 mg oral capsule, Take 10 mg by mouth once daily., Disp: , Rfl: promethazine 25 mg oral tablet, Take 0.5 tablets by mouth four times daily as needed for na usea/vomiting. Indications: Post-Operative Nausea and Vomiting, Disp: 60 tablet, Rfl: 2 spironolactone 50 mg oral tablet, Take 50 mg by mouth once daily., Disp: , Rfl: thyroid (ARMOUR THYROID) 30 mg oral tablet tab, Take 30 mg by mouth once daily., Disp: , Rf l: torsemide 100 mg oral tablet, Take 100 mg by mouth two times daily. Resume half dose for fi rst week post opertative, Disp: , Rfl: traZODone 150 mg Oral tablet, Take 150 mg by mouth once daily at bedtime. , Disp: , Rfl: Physical Exam General- Alert and oriented x4, No acute distress, well appearing Well hydrated: moist mucous membranes Abd - Soft, non-tender, non-distended, lap scars noted to be well healed, large overhanging pannus with evidence of intertriginous candidiasis Assessment/Plan: Elzbieta Cristina is a 43 y.o. female who is 6 months S/P Nilesh en y gastric bypass. 1. S/p Nilesh en y gastric bypass doing well. -Denies nausea, vomiting, diarrhea or constipation -continue with protein goal of 60-80g/day -continue with fluid intake goal of at least 64oz/day -Discussed diet choices, healthy foods, ways to increase protein and iron -Discussed daily exercise and types of exercises 2. Intertriginous candidiasis -use corn starch to help reduce moisture -place a towel between skin folds to reduce friction and promote drying -Rx given for Nystatin powder -advised to contact us if having further problems 3. Risk for B12 deficiency, calcium malabsorption, protein malabsorption, vitamin d deficie ncy and iron deficiencies -Labs today: CBC, CMP, PTH, MMA, Homocysteine, Vit B12, Vit D, Vit B1, Vit A, Vit E, INR, Z inc, Copper, Ferritin, Iron/TIBC, will notify of results and replace as needed -continue with vitamin supplements as directed 4.Gastric Ulcer Prevention -pt advised to start PPI if develops GERD symptoms and notify us 6. Progress of Chronic Medical Conditions -AMARA: still on CPAP -GERD: none -Hyperlipidemia: n/a -HTN: still on medications -Diabetes: seeing court stenographer in December, hopes to eliminate Metformin then as recent A1c was normal Return to bariatric clinic in 6 months for 1 year follow up visit See your primary care provider for adjusting any other medications. Call if any abdominal pain, n/v/d or other issues. Pt agrees to plan and will call and/or send FlipGive message if any issues. Start time 2:45, end time 3:10. I spent a total of 25 minutes face to face with this patie nt. Over 50% of visit was in counseling. HILDA Davalos Bariatric Surgery Nurse Practitioner [facility] | [address] | [place], [place] | [address] | documented in this encounter Plan of Treatment [...] | 2019 | Encounter | | MD Richi [address] | | | | | | [address] | | | | | | [facility] [place] | | | | | | [address] | | | | | | [phone] | | | | | | | | +--------+ + + + + | 06/24/ | Surgery | Surgery | Chilo, | OPEN VENTRAL HERNIA | | 2019 | | | MD Richi [address]inos[address] | REPAIR WITH | | | | | [address] | BIOLOGICAL MESH | | | | | [place], [place] | | | | | | [address] | | | | | | [phone] | | | | | | | | +--------+ + + + + | 06/30/ | Office | Cardiology | Randell Franks, | | | 2019 | Visit | | [address] | | | | | | [place], [place] | | | | | | [address] | | | | | | [phone] | | | | | | | | +--------+ + + + + documented as of this encounter Procedures + +--------+ + + + | Procedure Name | Priori | Date/Time | Associated Diagnosis | Comments | | | ty | | | | + +--------+ + + + | CBC (HEMOGRAM) ONLY | Routin | 10/12/2018 | History of | Results for this | | | e | 3:29 PM | Nilesh-en-Y gastric | procedure are in the | | | | PDT | bypass | results section. | + +--------+ + + + | VITAMIN B1, WHOLE | Routin | 10/12/2018 | History of | Results for this | | BLOOD | e | 3:29 PM | Nilesh-en-Y gastric | procedure are in the | | | | PDT | bypass | results section. | + +--------+ + + + | INR | Routin | 10/12/2018 | History of | Results for this | | | e | 3:29 PM | Nilesh-en-Y gastric | procedure are in the | | | | PDT | bypass | results section. | + +--------+ + + + | VITAMIN D, | Routin | 10/12/2018 | History of | Results for this | | 25-HYDROXY, SERUM | e | 3:29 PM | Nilesh-en-Y gastric | procedure are in the | | | | PDT | bypass | results section. | + +--------+ + + + | ZINC, SERUM | Routin | 10/12/2018 | History of | Results for this | | | e | 3:29 PM | Nilesh-en-Y gastric | procedure are in the | | | | PDT | bypass | results section. | + +--------+ + + + | VITAMIN E, SERUM | Routin | 10/12/2018 | History of | Results for this | | | e | 3:29 PM | Nilesh-en-Y gastric | procedure are in the | | | | PDT | bypass | results section. | + +--------+ + + + | VITAMIN A, SERUM | Routin | 10/12/2018 | History of | Results for this | | | e | 3:29 PM | Nilesh-en-Y gastric | procedure are in the | | | | PDT | bypass | results section. | + +--------+ + + + | HOMOCYSTEINE TOTAL, | Routin | 10/12/2018 | History of | Results for this | | PLASMA | e | 3:29 PM | Nilesh-en-Y gastric | procedure are in the | | | | PDT | bypass | results section. | + +--------+ + + + | COMPLETE METABOLIC | Routin | 10/12/2018 | History of | Results for this | | SET | e | 3:29 PM | Nilesh-en-Y gastric | procedure are in the | | (NA,K,CL,CO2,BUN,CRE | | PDT | bypass | results section. | | AT,GLUC,CA,AST,ALT,B | | | | | | MARGIE TOTAL,ALK | | | | | | PHOS,ALB,PROT TOTAL) | | | | | + +--------+ + + + | METHYLMALONIC ACID, | Routin | 10/12/2018 | History of | Results for this | | SERUM | e | 3:29 PM | Nilesh-en-Y gastric | procedure are in the | | | | PDT | bypass | results section. | + +--------+ + + + | CBC ONLY | Routin | 10/12/2018 | History of | Results for this | | | e | 3:29 PM | Nilesh-en-Y gastric | procedure are in the | | | | PDT | bypass | results section. | + +--------+ + + + | FERRITIN | Routin | 10/12/2018 | History of | Results for this | | | e | 3:29 PM | Nilesh-en-Y gastric | procedure are in the | | | | PDT | bypass | results section. | + +--------+ + + + | PTH, SERUM | Routin | 10/12/2018 | History of | Results for this | | | e | 3:29 PM | Nilesh-en-Y gastric | procedure are in the | | | | PDT | bypass | results section. | + +--------+ + + + | VITAMIN B-12 | Routin | 10/12/2018 | History of | Results for this | | | e | 3:29 PM | Nilesh-en-Y gastric | procedure are in the | | | | PDT | bypass | results section. | + +--------+ + + + | IRON AND TIBC, SERUM | Routin | 10/12/2018 | History of | Results for this | | | e | 3:29 PM | Nilesh-en-Y gastric | procedure are in the | | | | PDT | bypass | results section. | + +--------+ + + + | COPPER, SERUM | Routin | 10/12/2018 | History of | Results for this | | | e | 3:29 PM | Nilesh-en-Y gastric | procedure are in the | | | | PDT | bypass | results section. | + +--------+ + + + documented in this encounter Results CBC (HEMOGRAM) ONLY (10/12/2018 3:29 PM PDT) + + + + + + | Component | Value | Ref Range | Performed | Pathologist | | | | | At | Signature | + + + + + + | WHITE CELL | 11.64 (H) | 3.50 - 10.80 | [facility] | | | COUNT | | K/cu mm | LABORATORY | | | | | | SERVICES, | | | | | | CORE | | + + + + + + | RED CELL | 5.13 | 4.00 - 5.20 | [facility] | | | COUNT | | M/cu mm | LABORATORY | | | | | | SERVICES, | | | | | | CORE | | + + + + + + | HEMOGLOBIN | 14.8 | 12.0 - 16.0 | [facility] | | | | | g/dL | LABORATORY | | | | | | SERVICES, | | | | | | CORE | | + + + + + + | HEMATOCRIT | 46.1 (H) | 36.0 - 46.0 % | [facility] | | | | | | LABORATORY | | | | | | SERVICES, | | | | | | CORE | | + + + + + + | MCV | 89.9 | 80.0 - 100.0 fL | [facility] [...] + + + | RDW SD | 41.8 | 35.1 - 46.3 fL | [facility] | | | | | | LABORATORY | | | | | | SERVICES, | | | | | | CORE | | + + + + + + | PLATELET | 327 | 150 - 400 K/cu | [facility] | | | COUNT | | mm | LABORATORY | | | | | | SERVICES, | | | | | | CORE | | + + + + + + | MPV | 10.7 | 9.7 - 12.3 fL | [facility] [...] [facility] | [address] | [place] [address] | | | SERVICES, CORE | [address] | | | + + + + + INR (10/12/2018 3:29 PM PDT) + +-------+ + + + | Component | Value | Ref Range | Performed | Pathologist | | | | | At | Signature | + +-------+ + + + | INR | 1.00 | 0.90 - 1.20 INR | [facility] [...] | + + + + + | [facility] | [address] | [place] [address] | | | SERVICES, [facility] | [address] | | | + + + + + VITAMIN A, SERUM (10/12/2018 3:29 PM PDT) + + + + + + | Component | Value | Ref Range | Performed | Pathologist | | | | | At | Signature | + + + + + + | INTERPRETAT | NormalComment: Test | | [facility] | | | ION (VIT A) | developed and | | REG UNIV | | | | characteristics | | PTH - INTFC | | | | determined by [facility] | | | | | | Laboratories. See | | | | | | Compliance Statement B: | | | | | | [facility]/CSPerformed | | | | | | [address] [employer],[address] | | | | | | [address], [facility] [place] | | | | | | [address] | | | | | | [phone].[facility]. | | | | | | comIsmael MD, | | | | | | Lab. Director | | | | + + + + + + | RETINOL | 0.61 | 0.30 - 1.20 | [facility] | | | (VITAMIN A) | | mg/L | REG UNIV | | | | | | PTH - INTFC | | + + + + + + | RETINYL | 0.02 | 0.00 - 0.10 | [facility] | | | PALMATATE | | mg/L | REG UNIV | | | | | | PTH - INTFC | | + + + + + + + + | Specimen | + + | Blood - Blood | | (substance) | + + + + + + + | Performing | Address | City/State/Zipcode | Phone Number | | Organization | | | | + + + + + | [facility] | [address] | [place], [place] | | | UNIV PTH - INTFC | | [address] | | + + + + + ZINC, SERUM (10/12/2018 3:29 PM PDT) + + + + + + | Component | Value | Ref Range | Performed | Pathologist | | | | | At | Signature | + + + + + + | ZINC SERUM | 58 (L)Comment: | 60 - 120 ug/dL | [facility] | | | | INTERPRETIVE | | REG UNIV | | | | INFORMATION: Zinc, Serum | | PTH - INTFC | | | | or Plasma Circulating | | | | | | zinc concentrations are | | | | | | dependent on albumin | | | | | | status and are depressed | | | | | | with malnutrition. Zinc | | | | | | may also be lowered | | | | | | with infection, | | | | | | inflammation, stress, | | | | | | oral contraceptives, and | | | | | | . Zinc may be | | | | | | elevated with zinc | | | | | | supplementation or | | | | | | fasting. Elevated zinc | | | | | | concentrations may | | | | | | interfere with copper | | | | | | absorption. Test | | | | | | developed and | | | | | | characteristics | | | | | | determined by [facility] | | | | | | Laboratories. See | | | | | | Compliance Statement B: | | | | | | [facility]/CSPerformed | | | | | | [address] [employer] | | | | | | [facility],[place] | | | | | | [address] | | | | | | [phone].[email or web address]. | | | | | | [facility] campusIsmael MD, | | | | | | [...] + + | [facility] | [address] | [place], [place] | | | UNIV PTH - INTFC | | [address] | | + + + + + VITAMIN E, SERUM (10/12/2018 3:29 PM PDT) + + + + + + | Component | Value | Ref Range | Performed | Pathologist | | | | | At | Signature | + + + + + + | VITAMIN E | 1.7Comment: Performed by | 0.0 - 6.0 mg/L | [facility] | | | (YEN NOAH) | [facility],[address] | | REG UNIV | | | SERUM | Liliana Martinez, [facility] [place] | | PTH - INTFC | | | | [address] | | | | | | [phone]. | | | | | | Ismael guillory MD, | | | | | | Lab. Director | | | | + + + + + + | VITAMIN E | 9.3Comment: Test | 5.5 - 18.0 mg/L | [facility] | | | (ALPHA | developed and | | REG UNIV | | | NOAH), SERUM | characteristics | | PTH - INTFC | | | | determined by [facility] | | | | | | Laboratories. See | | | | | | Compliance Statement B: | | | | | | [employer]/[facility] | | | | + + + + + + + + | Specimen | + + | Blood - Blood | | (substance) | + + + + + + + | Performing | Address | City/State/Zipcode | Phone Number | | Organization | | | | + + + + + | [facility] | [address] | [place], [place] | | | UNIV PTH - INTFC | | [address] | | + + + + + VITAMIN D, 25-HYDROXY, SERUM (10/12/2018 3:29 PM PDT) + +-------+ + + + | Component | Value | Ref Range | Performed | Pathologist | | | | | At | Signature | + +-------+ + + + | VITAMIN D | 56.0 | 30 - 80 ng/mL | [facility] [...] [facility] | [address] | [place] [address] | | | SERVICES, CORE | [address] | | | + + + + + VITAMIN B-12 (10/12/2018 3:29 PM PDT) + + + + + + | Component | Value | Ref Range | Performed | Pathologist | | | | | At | Signature | + + + + + + | VITAMIN B12 | 1,083 (H) | 193 - 986 pg/mL | [...] | + + + + + | [facility] | [address] | [place] [address] | | | SERVICES, CORE | [address] | | | + + + + + VITAMIN B1, WHOLE BLOOD (10/12/2018 3:29 PM PDT) + + + + + + | Component | Value | Ref Range | Performed | Pathologist | | | | | At | Signature | + + + + + + | VITAMIN B1, | 128Comment: INTERPRETIVE | 70 - 180 nmol/L | [facility] | | | WHOLE | INFORMATION: Vitamin [...] | | | | | determined by [facility] | | | | | | Laboratories. See | | | | | | Compliance Statement B: | | | | | | [facility]/CSPerformed | | | | | | [address] [employer],[address] | | | | | | [place], [place] | | | | | | [address] | | | | | | [phone].[facility]. | | | | | | [facility] campusIsmael MD, | | | | | | [...] [facility] | [address] | [place], [place] | | | UNIV PTH - INTFC | | [address] | | + + + + + PTH, SERUM (10/12/2018 3:29 PM PDT) + +---------+ + + + | Component | Value | Ref Range | Performed | Pathologist | | | | | At | Signature | + +---------+ + + + | PTH, SERUM | 265 (H) | 18 - 88 pg/mL | [facility] | | | | | | LABORATORY [...] | + + + + + | [facility] | [address] | [place] [address] | | | SERVICES, CORE | [address] | | | + + + + + METHYLMALONIC ACID, SERUM (10/12/2018 3:29 PM PDT) + + + + + + | Component | Value | Ref Range | Performed | Pathologist | | | | | At | Signature | + + + + + + | METHYLMALON | 0.29Comment: | 0.00 - 0.40 | [facility] | | | IC ACID | INTERPRETIVE | umol/L | REG UNIV | | | | INFORMATION: MMA | | PTH - INTFC | | | | Serum/Plasma, | | | | | | | | | | | | Vitamin B12 Status | | | | | | Test developed and | | | | | | characteristics | | | | | | determined by [facility] | | | | | | Laboratories. See | | | | | | Compliance Statement B: | | | | | | [facility]/CSPerformed | | | | | | [address] [employer],[address] | | | | | | [facility],[place] | | | | | | [address] | | | | | | [phone].[facility]. | | | | | | [employer] MicrostarsoftIsmael MD, | | | | | | [...] [facility] | [address] | [place], [place] | | | UNIV PTH - INTFC | | [address] | | + + + + + IRON AND TIBC (10/12/2018 3:29 PM PDT) + +--------+ + + + | Component | Value | Ref Range | Performed | Pathologist | | | | | At | Signature | + +--------+ + + + | IRON | 45 | 30 - 160 ug/dL | [facility] | | | | | | LABORATORY | | | | | | SERVICES, | | | | | | CORE | | + +--------+ + + + | IRON BIND | 327 | 240 - 450 ug/dL | [facility] | | | CAP | | | LABORATORY | | | | | | SERVICES, | | | | | | CORE | | + +--------+ + + + | % | 14 (L) | 20 - 50 [...] + | [facility] | [address] | [place] [address] | | | SERVICES, CORE | [address] | | | + + + + + HOMOCYSTEINE TOTAL, PLASMA (10/12/2018 3:29 PM PDT) + +-------+ + + + | Component | Value | Ref Range | Performed | Pathologist | | | | | At | Signature | + +-------+ + + + | HOMOCYSTEIN | 8.0 | 3.5 - 10.4 | [facility] | | | E,PLASMA,TO | | umol/L | LABORATORY | | | [place] | | | SERVICES, | | | | | | SPECIAL IMM | | | | | | + COAG | | + +-------+ + + + + + | Specimen | + + | Blood - Blood | | (substance) | + + + + + + + | Performing | Address | City/State/Zipcode | Phone Number | | Organization | | | | + + + + + | [facility] | [address] | [place] [address] | | | SERVICES, SPECIAL | [address] | | | | IMM + [place] | | | | + + + + + FERRITIN (10/12/2018 3:29 PM PDT) + + + + + + | Component | Value | Ref Range | Performed | Pathologist | | | | | At | Signature | + + + + + + | FERRITIN | 56Comment: Male and | 50 - 200 ng/mL [...] | + + + + + | [facility] | [address] | [place] [address] | | | SERVICES, CORE | [address] | | | + + + + + COPPER, SERUM (10/12/2018 3:29 PM PDT) + + + + + + | Component | Value | Ref Range | Performed | Pathologist | | | | | At | Signature | + + + + + + | COPPER | 133Comment: INTERPRETIVE | 80 - 155 ug/dL | [facility] | | | SERUM | INFORMATION: Copper, | | REG UNIV | | | | Serum or Plasma Serum | | PTH - INTFC | | | | copper may be elevated | | | | | | with infection, | | | | | | inflammation, stress, | | | | | | and copper | | | | | | supplementation. In | | | | | | females, elevated copper | | | | | | may also be caused by | | | | | | oral contraceptives and | | | | | | | | | | | | (concentrations may be | | | | | | elevated up to 3 times | | | | | | normal during the third | | | | | | trimester). Serum copper | | | | | | may be reduced by use | | | | | | of corticosteroids and | | | | | | zinc and by malnutrition | | | | | | or malabsorption. See | | | | | | Compliance Statement B | | | | | | at | | | | | | [email or web address] | | | | | | med by [facility] | | | | | | [facility],[address] [place] [address] | | | | | | [place] [address] | | | | | | [phone][facility]. | | | | | | [facility]Ismael MD, | | | | | | [...] [facility] | [address] | [place], [place] | | | UNIV PTH - INT[facility] | | [id number] | | + + + + + COMPLETE METABOLIC SET (NA,K,CL,CO2,BUN,CREAT,GLUC,CA,AST,ALT,BILI TOTAL,ALK PHOS,ALB,PROT TOTAL) (10/12/2018 3:29 PM PDT) + +---------+ + + + | Component | Value | Ref Range | Performed | Pathologist | | | | | At | Signature | + +---------+ + + + | GLUCOSE, | 103 (H) | 70 - 99 mg/dL | [facility] | | | PLASMA | | | LABORATORY | | | (LAB) | | | SERVICES, | | | | | | CORE | | + +---------+ + + + | BUN, PLASMA | 9 | 6 - 20 mg/dL | [facility] | | | (LAB) | | | LABORATORY | | | | | | SERVICES, | | | | | | CORE | | + +---------+ + + + | CREATININE | 0.70 | 0.60 - 1.10 | [facility] | | | PLASMA | | mg/dL | LABORATORY | | | (LAB) | | | SERVICES, | | | | | | CORE | | + +---------+ + + + | EGFR | >60 | >60 mL/min | [facility] | | | - | | | LABORATORY | | | [facility] | | | SERVICES, | | | [...] + + + | TOTAL CO2, | 28 | 21 - 32 mmol/L | [facility] [...] +---------+ + + + | CALCIUM(ALB | 9.8 | 8.6 - 10.2 | [...] +---------+ + + + | ALBUMIN, | 3.1 (L) | 3.5 - 4.7 g/dL | [facility] | | | PLASMA | | | LABORATORY | | | (LAB) | | | SERVICES, | | | | | | CORE | | + +---------+ + + + | ALK PHOS | 147 (H) | 42 - 98 U/L | [facility] | | | | | | LABORATORY | | | | | | SERVICES, | | | | | | CORE | | + +---------+ + + + | AST(SGOT) | 26 | <=41 U/L | [facility] | | | | | | LABORATORY | | | | | | SERVICES, | | | | | | CORE | | + +---------+ + + + | ALT (SGPT) | 26 | <=60 U/L | [facility] | | [...] +---------+ + + + | ANION | 5 | 4 - 11 mmol/L | [facility] [...] Kidney Failure Estimated GFR greater than 60 mL/min/1.73 sq m is of | [...] | + + + + + | [facility] | [address] | [place] [address] | | | SERVICES, CORE | [address] | | | + + + + + documented in this encounter Visit Diagnoses + + | Diagnosis | + + | 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
--- OUTSIDE RECORDS SUMMARY | ~2019-06-01 | XMS | Encounter Summary ---
Demographics + + + | Address | [address] | | | [place] [address] | + + + | Home Phone [...] + | Katalina Padilla | ECON | [address] | | | | | [place], [place] | | | | | [address] | | + + + + + | Ellie Vang | ECON | Unknown | | + + + + + Care Team Providers + +------+ + | Care Peanut Cleaner Name | Role | Phone | + +------+ + | Kenyatta Cardenas MD | PCP | | + +------+ + Reason for Referral PROC - Inpatient Surgery (Routine) +--------+--------+ + + + + | Status | Reason | Specialty | Diagnoses / | Referred By | Referred To | | | | | Procedures | Contact | Contact | +--------+--------+ + + + + | Open | | Surgery | Diagnoses | | [place], | | | | | Ventral | Chilo, | MD Jones | | | | | hernia | MD Jones | [address] | | | | | without | [address] | [place] | | | | | obstruction | [address] | [address] [place], | | | | | or gangrene | Rd | [place] | | | | | Procedures | [place], [place] | [address] | | | | | REQUEST TO | [phone] | Phone: | | | | | SURGERY | Phone: | [phone] | | | | | SUPPLY CHAIN DESIGN MANAGER | [phone] | Fax: | | | | | | Fax: | [phone] | | | | | | [phone] | | +--------+--------+ + + + + Reason for Visit + + + | Reason | Comments | + + + | New patient | | | consultation | | + + + Encounter Details +--------+---------+ + + + | Date | Type | Department | Care Team | Description | +--------+---------+ + + + | 05/05/ | Office | [facility] | Chilo, | Ventral hernia | | 2019 | Visit | [facility] [address] | MD Jones [address] | without obstruction | | | | [address] | [facility] [address] | or gangrene (Primary | | | | Mailcode: Center | [place], [place] | Dx) | | | | for Health and | [address] | | | | | Healing, Building [address] | [phone] | | | | | [place], [place] | | | | | | [address] | | | | | | [phone] | | | +--------+---------+ + + + [...] + + + | Blood Pressure | 135/75 | 05/05/2019 12:53 PM | | | | | PDT | | + + + + + | Pulse | 90 | 05/05/2019 12:53 PM | | | | | PDT | | + + + + + | Temperature | 36.7 C (98 F) | 05/05/2019 12:53 PM | | | | | PDT | | + + + + + | Respiratory Rate | - | - | | + + + + + | Oxygen Saturation | 94% | 05/05/2019 12:53 PM | | | | | PDT | | + + + + + | Inhaled Oxygen | - | - | | | Concentration | | | | + + + + + | Weight | 120.7 kg (266 lb) | 05/05/2019 12:53 PM | | | | | PDT | | + + + + + | Height | 147.3 cm (4' 10") | 05/05/2019 12:53 PM | | | | | PDT | | + + + + + | Body Mass Index | 55.59 | 05/05/2019 12:53 PM | | | | | PDT [...] of this encounter Patient Instructions Patient Instructions Gadiel Yi - 05/05/2019 1:20 PM PDT No restrictions regarding any weight lifting or other physical activity. I believe that the benefits of physical exercise outweigh the risks of any worsening of your current symptoms. Reduce activity if you experience groin/abdominal pain. The following are symptoms of obstruction and strangulation, and should you experience any of them, you need to see a medical professional or go to the ER: Worsening pain Bulging that cannot be reduced Skin changes such as redness Fevers Inability to tolerate food Limited bowel function You may attempt to push back in, or reduce, your hernia. The most effective way to reduce i t is to lay down on your back and push the contents in slowly with steady pressure from your hands. If you experience pain or significant discomfort with attempts at reduction, please do not continue to reduce the hernia further. Continue with imodium for your constipation. Follow up with us by phone after your appointment on the . We would like to hold off on operating until we know why you are having your diarrhea, nausea and vomiting. We will s et a tentative date today, but if anything happens between now or then, we may have to ken edule. Managing Diarrhea with Soluble Fiber There are two types of dietary fiber: soluble and insoluble fiber. Most fiber containing fo ods have a mix of both types. ? Soluble fiber is found in some vegetables, fruit and legumes like dried beans and peas. S oluble fiber becomes thick and gel like and may be helpful to manage diarrhea related to a g astrointestinal dysfunction such as bowel resection, high ostomy output, short bowel syndrom e, radiation enteritis, irritable bowel disease, irritable bowel syndrome etc. ? Soluble fiber can help slow the digestion of food. ? Manage diarrhea and loose stools ? Reduce some of the symptoms related to irritable bowel syndrome ? Have a healthier colon by increasing the amount of healthy bacteria ? Insoluble fiber is found in the skins of vegetables and fruit and the bran portion of who le grains. Insoluble fiber helps promote regularity and a healthy digestive system. Insolubl e fiber can make diarrhea worse for some people with gastrointestinal dysfunction. How much soluble fiber is recommended? Most foods contain a mix of soluble and insoluble fiber. Aim for at ~10-15 g soluble fiber per day. Total dietary fiber recommendations are 25 g for Women and 38 g for Men. Increas e fiber gradually and be sure to drink plenty of fluids to minimize bloating and gas. Soluble Fiber Content of Some Common Foods Certain types of foods contain more soluble fiber than insoluble fiber. Choose foods from t he table below to get more soluble fiber in your diet. Food Serving Size Soluble fiber (grams) Vegetables and Fruit: Passion Fruit, purple 125 mL (1?2 cup) 6.5 Avocado 1?2 fruit 2.1 [place] sprouts, cooked 125 mL (1?2 cup) 2.0 Figs, dried 60 mL (1?4 cup) 1.9 [place] 1 medium 1.8 Sweet Potato, cooked, without skin 125 mL (1?2 cup) 1.8 Asparagus, cooked 125 mL (1?2 cup) 1.7 Turnip, cooked 125 mL (1?2 cup) 1.7 Edamame, (soybean, green, cooked) 125 mL (1?2 cup) 1.5 Broccoli, cooked 125 mL (1?2 cup) 1.2-1.5 Pear, with skin 1 medium 1.1-1.5 Apricots, raw, with skin 3 1.4 Nectarine, raw with skin 1 medium 1.4 Marc greens, cooked 125 mL (1?2 cup) 1.3 Eggplant 125 mL (1?2 cup) 1.3 [place], with skin 1 medium 1.0-1.3 Peas, green, cooked 125 mL (1?2 cup) 0.8-1.3 Carrot, cooked John 125 mL (1?2 cup) 1?2 fruit 1.1-1.2 0.7-1.1 Grapefruit 1?2 fruit 0.7-1.1 Prunes, dried 3 1.1 [place], with skin 2 fruits 1.1 Apricots, dried 60 mL (1?4 cup) 1.1 Guava, raw, ripe 1 fruit 1.1 Potato, white, with skin 1 small 1.1 Apple, red, with skin 1 medium 0.9-1.0 Beans, green, cooked 125 mL (1?2 cup) 1.0 Apple 1 medium 1.0 Okra, cooked 125 mL (1?2 cup) 1.0 Beets, skinless 125 mL (1?2 cup) 0.8 Banana 1 medium 0.7 Grain Products Bran Buds (with Psyllium) (5) 30 g (1/3 cup) 2.7 Oat bran, cooked 175 mL (3?4 cup) 2.2 Oat flakes Oatmeal, cooked 1 cup 175 g (3/4 cup) 1.5 1.4 Bran cereal (non flake) 30 g (1/3 cup) 1.4 Oat bran muffin 1 medium (57 g) 1.4 O-shaped cereal 30 g (1 1?4 cup) 1.2 Bread, rye 35 g (1 slice) 0.6-1.0 Loup bread crackers 3 crackers 0.9 Raisin bran muffin 57 g (1 medium) 0.8 Barley, pearled, cooked 125 mL (1?2 cup) 0.8 Bread, whole wheat 30 g (1 slice) 0.5 Brown rice, cooked 125 mL (1?2 cup) 0.5 Pasta ,(whole wheat, white), cooked 125 mL (1?2 cup) 0.5 Nadine toast, whole wheat 6 crackers 0.5 Milk and Milk Products This food group contains very little fiber. Adapted from Food Sources of Soluble Fiber www.dietitians.ca PATIENT SURGERY INFORMATION [facility] General Surgery Office Toll-free: ext [phone] Surgery Date: Monday, July 08, [address]: Main [facility] Procedure: recurrent ventral hernia repair Surgeon Name: Dr. Jones Tiwari DIRECTIONS FOR SURGERY TO PREPARE FOR SURGERY - If you are able, walk every day for at least 30 minutes. - Follow up: Phone pre-operative medicine clinic call [facility] This call appointment will be scheduled with you by a ambulance paramedic. You will receive a ca ll within the next few days. If not, please call the clinic to follow up. WHEN TO ARRIVE Check-in times for Hospital Admissions are not available until the day prior to surgery. So meone will contact you with your check in time. If you do not hear from anyone by 4:[address] ease call the General Surgery Office at [phone] for [id number]. Check-in on the day of surgery is at the Admitting Department located on the 9th floor of [facility]. DIET Nothing to eat or drink after midnight on the night prior to surgery, including water. Your clinician will instruct you on what medications to take the morning of surgery. MEDICATIONS TYLENOL is OK to continue taking. Please stop the following medications for SEVEN days prior to surgery: - Ibuprofen - Aspirin (unless necessary to keep taking for cardiac reasons) - Vitamins - Minerals - Over the counter herbal supplements Unless otherwise directed by your provider, do not take any Aspirin, Vitamin E or non-stero idal anti-inflammatory (NSAIDs i.e. Advil, Aleve, Ibuprofen) or herbal supplements seven day s prior to your surgery. These drugs may interfere with normal blood clotting and may cause excessive bleeding and bruising during or after the surgery. Please see the list below, [facility] has a list of products that contain Aspirin, Ibuprofen, or Vitamin E. If you are taking Coumadin (warfarin), Plavix or any other blood thinners please let you r surgical team know as medication changes will be necessary. If you need a pain medication for general purposes, use Tylenol as directed. If you are in doubt about any medications that you are taking, please contact our office . Products Containing Aspirin Yuki-Mcdonough, Anacin, Anexsia with Codeine, Andynos, Aspirin, Aspirin suppositories, Ascrip tin, Aspergum, Axotal, B-A-C, Baby Aspirin, Lucila, BC Powder, Bexophene, Buffaprin, Bufferin , Buffinol, Cama-Arthritis Strength, Congespirin, [place], Coricidin, Damason, Darvon, Dristan, Kalani-Gesic, Digel, Dolprin #3 Tablets, Donatab, Doxaphene, Duragesic, Easprin, Ecotrin, Emag rin Forte, Emiprin, Emprazil, Equagesic, Equazine M, Excedrin, Fiogesic, Fiorgen PH, Fiorice t, Fiorinal, 4-Way Cold Tablet, Gemnisyn, Indocin, Liquprin, Lortab ASA, Magnaprin, Marnal, Meprobamate, Midol, Momentum, Norgesic, [place], Orphengesic, Pabalate, P-A-C, Percodan, Pre salin, Robaxasil, Roxiprin, Saleto, Salocol, SK-65 Compound, Sine-Aid, Sine-Off, [place], Supac, Talwin Compound, Trigesic, Tolectin, Traiminicin, Vanquish, ZORprin, Zomax Products Containing Ibuprofen Advil, Aleve, Haltran, Medipren, Midol, Motrin, Naproxyn, Nuprin, Rufen Herbal Medications Ephedra: discontinue 24 hours before surgery Garlic: discontinue 7 days prior to surgery Ginkgo: discontinue 36 hours prior to surgery Ginseng: discontinue 7 days prior to surgery Kava: discontinue 24 hours prior to surgery [place] s Wort: discontinue 5 days prior to surgery Valerian: discontinue several weeks prior to surgery Other Products Which May Promote Bleeding Vitamin E, Gingko Biloba, Marine Fatty Acids, Soldier-3 Fish Oil Supplement PRE-OP BATHING/SHOWER INSTRUCTIONS with [facility] Bathe or shower the evening before and the morning of your surgery. Use 1/2 of this bottle of soap for the evening cleansing and 1/2 of this bottle of so ap in the morning. Wash from your neck to your toes. Do NOT wash your face, hair, or genitals with this solution. Do NOT shave the surgical area as this can increase risk for infection. After your shower or bath do NOT apply lotions, powders or deodorant. Please get into clean pajamas and sheets after your evening shower. DIET Nothing to eat or drink after midnight on the night prior to surgery, including water, unle ss instructed otherwise. Your clinician will instruct you on what medications to take the mo rning of surgery. Not following these instructions may lead to a delay and/or cancellation o f your procedure. SMOKING You should not smoke for four weeks prior to the procedure and at least two weeks after the procedure. Smoking can significantly affect the outcome of your procedure. Smoking near the time of surgery causes a more acute narrowing of the blood vessels, which may lead to decre ased blood flow to the tissue, poor healing, bad scars, or actual loss of tissue. Check out the free [place] Quit Line - The Quit Line is open 24 hours a day, seven days a we ek. The Quit Line is a telephone and web-based counseling service to help [place]ians quit us ing tobacco and nicotine products. .QUIT.NOW ( ) or www.quitnow.net/[place] PARKING Parking at the Hospital for patients and visitors is available in the [facility] Parking s tructure located across from the emergency department. Patient parking is available on level 1 and 3. Metered parking is available on the top level. Parking at [facility] is available in the building's parking structure. For additional parking options visit [email or web address]. TRANSPORTATION You will require transportation home on the day of discharge. Pain medications and physical activity restrictions may limit your ability to drive safely. CANCELLING YOUR PROCEDURE Please notify the general surgery office at [phone] as soon as possible should you nee d to cancel or change your surgery date. We will attempt to reschedule your procedure in a t imely manner, however, due to a limited amount of operating room time a waiting list is not uncommon. ILLNESS Please call our office with any signs of illness such as cold, flu, infection, fever, or sk in rash/infection any time prior to your surgery. documented in this encounter Progress Notes Jones Tiwari MD - 05/05/2019 1:20 PM PDT VENTRAL HERNIA Author: Dr. Jones Tiwari MD PCP: Kenyatta Cardenas MD HPI/Interval Update: Elzbieta Cristina is a 44 y.o. female with bipolar disorder, anxiety, depression, HTN and stroke/TIA. She has had multiple hernia repairs including an umbilical hernia repair (2010), primary ventral hernia repair (2013 - Dr. Levi Brian) and primary i ncisional hernia repair (2014 - Dr. Shahid Cantu). She has morbid obesity s/p laparoscopic a nteocolic RYGB (03/01/2018); since this operation, she has lost 100+ lbs! She last saw the [facility] team in 02/2019, at which time she had known ventral hernias (see CT below) which w as becoming increasingly symptomatic so she was referred here. Today in clinic, she reports that her hernias are very painful to palpation. She reports th at she has had diarrhea and nausea/vomiting as well as URI symptoms, an earache, and sinus i nfections, which have persisted for 13 weeks. She vomits almost every time that she eats. Gabriel patterson will usually have to get up in the middle of the night to go to the bathroom because of di arrhea, and will occasionally have to vomit at that time. She does take imodium which does n ot always work. She is unable to tolerate many solids and receives weekly IV hydration with phenergan in the infusions. She has followed up with the bariatric team who are aware of her symptoms. Her weight has remained stable. She plans to see an ENT and a metal drill operator for her symptoms in the near future. She was over 500 lbs before her bypass and is down around 265 lbs today. She reports that she had wound infections after her appendectomy which required multiple vinson rgeries afterwards. She was left with an open wound that she had to pack for a number of thus. She reports that she retains water and is on diuretics. Risk Factors for Hernia: Smoking: No - former GI or Issues: Yes - diverticulitis, hemorrhoids Prior Repairs: Yes - Multiple, see history MESH: No Immune Suppression: No COPD: No Occupation requiring weight lifting: Not assessed Bleeding Disorders: No Diabetes: No Malnutrition: No History of Infection: Yes - SSI after appendectomy Post-Op Complications on Previous Surgery: Yes - SSI after appendectomy Normal Physical Activity: Yes. Can walk numerous blocks. Chief Complaint: New patient consultation Past Surgical History Procedure Laterality Date Tonsillectomy and adenoidectomy Appendectomy, open 2010 Umbilical hernia repair 2010 Treatment of ankle fracture with screws remaining Incision and drainage of wound abscess x2 midline transverse wound s/p open appendectomy 2010 Ventral hernia repair 10/2012 Dr. Andie Brian Incisional hernia repair 03/01/2015 [facility]/ Dr. Cantu. Primary fascial closure and scar excision Lap gastric byp, and nilesh-en-y gastroenterostomy w/ nilesh limb 150 cm or less 8 [facility] Past Medical History: Diagnosis Date Abdominal pain [...] Bromocriptine Tinea corporis UTI (urinary tract infection) Social History Socioeconomic History Marital status: Single Spouse name: Not on file Number of children: 1 Years of education: Not on file Highest education level: Not on file Occupational History Occupation: disabled Employer: NONE Social Needs Financial resource strain: Not on file Food insecurity: Worry: Not on file Inability: Not on file Transportation needs: Medical: Not on file Non-medical: Not on file Tobacco Use Smoking status: Former Smoker Smokeless tobacco: Never Used Tobacco comment: former social smoker Substance and Sexual Activity Alcohol use: No Alcohol/week: 0.0 oz Drug use: No Sexual activity: Not on file Lifestyle Physical activity: Days per week: Not on file Minutes per session: Not on file Stress: Not on file Relationships Social connections: Talks on phone: Not on file Gets together: Not on file Attends synagogue service: Not on file Active member of club or organization: Not on file Attends meetings of clubs or organizations: Not on file Relationship status: Not on file Other Topics Concern Not on file Social History Narrative Updated 11/09/15 She lives in [place] with her mother and her sister (also her caregiver) lives in an apa rtment/duplex below. She has 2 grandchildren (age 4 and 7) who live with her daughter and son-in-law Her boyfriend lives in [place] HFpEF, DM2, HTN, Sleep Apnea (unable to [...] here and refer her to our cardiac cath lab technologist who also has expertise in physical activity [...] are no prior exams available for comparison Current Outpatient Medications Medication Sig ascorbic acid (vitamin C) (VITAMIN C) 500 mg oral tablet Take 1 tablet by mouth once da mireya. aspirin EC 81 mg oral tablet,delayed release (DR/EC) Take 81 mg by mouth once daily. atenolol 25 mg oral tablet Take 50 mg by mouth once daily. BELBUCA 600 mcg buccal film CALCIUM [id number]&ULL-[id number]-GENIS ORAL Take 2 tablets by mouth two times daily. CYANOCOBALAMIN (VITAMIN B-12) INJ by injection route every thirty days. docusate sodium (STOOL SOFTENER ORAL) Take 200 mg by mouth. Equate brand per patient ergocalciferol (VITAMIN D2) 50,000 unit oral capsule Take 1 capsule by mouth every lucía n days. FA/mv,Ca,iron,min/lycopene/lut (MULTIVITAL ORAL) Take by mouth. Ferrous Gluconate 324 mg total salt (36 [...] for this visit. Allergies Allergen Reactions Amoxicillin Unknown Benadrilina [Diphenhydramine Hcl] Hives Parlodel [Bromocriptine] Unknown Blood clots Penicillin Hives Zofran [Ondansetron Hcl (Pf)] Hives ROS: All 14 systems reviewed and negative, except as noted above in HPI Physical Exam: BP 135/75 | Pulse 90 | Temp 36.7 C (98 F) | Ht 1.473 m (4' 10") | Wt 120.7 kg (266 lb) | SpO2 94% | BMI 55.59 kg/m | BSA 2.22 m General: Well nourished, well developed and in no apparent distress, alert and active, talk ative. HEENT: Grossly within normal limits, symmetric. Neck: Supple, full ROM, no adenopathy, no masses, trachea in midline. Skin: Turgor, scars. Chest: Clear, unlabored breathing Cardiac: Extremities warm and well-perfused Abdomen: Palpable incarcerated ventral hernia in the lower midline as well as a separate de fect in the LLQ containing incarcerated contents, both moderately tender to palpation, abdom en is otherwise soft, no masses, no organomegaly. Extremities: No edema, normal ROM, 2+ pulses groin, PT, DP, no joint deformity, no muscle t enderness. Neurological: CN 2-12 intact, normal gait, normal sensory to light touch all 4 extremities. Imaging: CT ABDOMEN/PELVIS W CONTRAST - 03/08/2019 FINDINGS: LOWER THORAX: Unremarkable. LIVER: Unremarkable. BILIARY: The gallbladder is surgically absent. PANCREAS: Unremarkable. SPLEEN: Unremarkable. ADRENALS: Unremarkable. KIDNEYS/URETERS: Nonobstructing 9 mm left upper pole stone is stable. PELVIC ORGANS/BLADDER: Intrauterine device is in expected position within the uterus. Urina ry bladder is unremarkable. GI TRACT: The bowel loops are not dilated. Postsurgical changes of a Nilesh-en-Y gastric bypa ss procedure. Multiple ventral hernias are noted without complication. The largest contains a segment of colon and small bowel with a base measuring 4.6 x 4.6 cm (image 89, sagittal 113). Broad-bas ed ventral hernia containing small bowel measures 5.0 cm in transverse dimension and 2.6 cm in craniocaudal dimension (axial 124, sagittal 129). PERITONEUM: No free air or fluid. LYMPH NODES: No lymphadenopathy. VESSELS: Unremarkable. BONES AND SOFT TISSUES: Unremarkable. IMPRESSION: Multiple bowel-containing ventral hernias without complication. Midline ventral hernia containing bowel: LLQ ventral hernia containing bowel: Assessment: 44 y.o. female with bipolar disorder, anxiety, depression, HTN and stroke/TIA. She has had multiple hernia repairs including an umbilical hernia repair (2010), primary yuriy tral hernia repair (2013 - Dr. Levi Brian) and primary incisional hernia repair (2014 - Brynn Cantu). She has morbid obesity s/p laparoscopic anteocolic RYGB (03/01/2018); [facility] e this operation, she has lost 100+ lbs! She is here today with an incarcerated ventral marguerite ia in the lower abdomen as well as another incarcerated ventral hernia in the LLQ. There is no indication of bowel obstruction or ischemia/strangulation at this time. Plan: The patient and I both agreed that she is appropriate for surgical intervention. Surgery details Date of surgery: Monday, July 08, 2019. Name of operation: Open ventral hernia repair with biologic mesh. Pre-op diagnosis: incarcerated incisional ventral hernia containing bowel. Estimated length of surgery: 2.5 hours. PMC: Phone. Position: Supine. We discussed the need for lifestyle modifications in order to decrease her overall risks . Weight loss & Nutrition I counseled her that obesity is one of the modifiable risk factors that may greatly impr ove her outcomes following hernia repair. Continue to lose weight with healthy eating and increased physical activity as the prima ry means of weight loss. No restrictions regarding any weight lifting or other physical activity. I believe that the benefits of physical exercise outweigh the risks of any worsening of her hernia. I coun seled her to reduce activity if he experiences groin/abdominal pain. I counseled her regarding the symptoms of incarceration and strangulation, including wor sening pain, bulging that cannot be reduced, skin changes such as redness, fevers, inability to tolerate food, and/or limited bowel function. The patient understands the need to be se en by a medical professional or come to the ER if they have persistent symptoms. She is currently being worked up for a variety of symptoms (diarrhea, nausea, vomiting, sinus infection). Though we have tentatively put her down for surgery in 06/2019, we will rodrigues ve to move back surgery if she is still ill. SCRIBE ATTESTATION I am Gadiel Yi functioning as a scribe for Jones Tiwari MD at 1:33 PM on 019 I have reviewed and verified the above scribed note of my visit with this patient as record ed by Gadiel Yi . JONES TIWARI MD [facility] [address] [facility] Mailcode: [place] [address] I spent 31 minutes with the patient. Greater than 50% of the time was spent counseling and educating the patient regarding weight loss, as well as other factors pertinent to ventral hernia repair. docum ented in this encounter Plan of Treatment +--------+ [...] | 2019 | Encounter | | MD Jones [address] | | | | | | [address] | | | | | | [place], [place] | | | | | | [address] | | | | | | [phone] | | | | | | | | +--------+ + + + + | 06/24/ | Surgery | Surgery | Chilo, | OPEN VENTRAL HERNIA | | 2019 | | | MD Jones [address] | REPAIR WITH | | | | | [address] | BIOLOGICAL MESH | | | | | [place], [place] | | | | | | [address] | | | | | | [phone] | | | | | | | | +--------+ + + + + | 06/30/ | Office | Cardiology | Randell Franks, | | | 2019 | Visit | | [address] | | | | | | [address] [place], [place] | | | | | | [address] | | | | | | [phone] | | | | | | | | +--------+ + + + + documented as of this encounter Visit Diagnoses + + | Diagnosis | + + | Ventral hernia without obstruction or gangrene - Primary Ventral hernia, unspecified, | | without mention of obstruction or gangrene | + + documented in this encounter
--- OUTSIDE RECORDS SUMMARY | ~2019-06-01 | XMS | Encounter Summary ---
Demographics + + + | Address | [address] | | | [place] [address] | + + + | Home Phone [...] + | Katalina Padilla | ECON | [address] | | | | | [place], [place] | | | | | [address] | | + + + + + | Ellie Vang | ECON | Unknown | | + + + + + Care Team Providers + +------+ + | Care Icer Machine Operator Name | Role | Phone [...] Giles | | | | | | [facility] | [facility] | | | | | | [facility] | Brock Mailcode: | | | | | | [facility] | [address] | | | | | | [place], [place] | [facility] | | | | | | [address] | [address] | | | | | | Phone: | [place], [place] | | | | | | [phone] | [address] | | | | | | | Phone: | | | | | | | [phone] | | | | | | | Fax: | | | | | | | [phone] | +--------+--------+ + + + + Encounter [...] [facility] [address] | [address] [place], | | | | | [address] | [place] [address] | | | | | Mailcode: [address] | [phone] | | | | | [facility] | | | | | | [address] [place], [place] | | | | | | [address] | | | | | | [phone] | | | +--------+---------+ + + + [...] Axel Gonzales MD - 03/06/2014 1:[address] [facility] Attending: [...] a HIDA scan to be done in [place] to verify that she does not have [...] Surgery Resident Department of General Surgery Pager: [phone] I saw and evaluated the patient. I agree with the findings and the plan of care as dequan han in the resident s note. PRADIP STARR MD [facility] SURGERY AT [facility] [address] [facility] Mailcode: [address] [place] [address] documented in this encoun ter [...] | Hospital | Adult Acute Care | Chiol, | | | 2019 | Encounter | | MD [address] | | | | | | [address] | | | | | | [place], [place] | | | | | | [address] | | | | | | [phone] | | | | | | | | +--------+ + + + + | 06/24/ | Surgery | Surgery | Chilo, | OPEN VENTRAL HERNIA | | 2018 | | | MD [address] | REPAIR WITH | | | | | [address] | BIOLOGICAL MESH | | | | | [place], [place] | | | | | | [address] | | | | | | [phone] | | | | | | | | +--------+ + + + + | 06/30/ | Office | Cardiology | Randell Franks, | | | 2019 | Visit | | MD [address] | | | | | | [address] [place], [place] | | | | | | [address] | | | | | | [phone] | | | | | | | [...] | + + + + + | [employer] | [address] | [place] [address] | | | SERVICES, CORE | [address] | | | + + + + + documented in this encounter Visit Diagnoses + + | Diagnosis | + + | Cholecystitis - Primary Cholecystitis, unspecified | + + documented in this encounter
--- OUTSIDE RECORDS SUMMARY | ~2019-06-01 | XMS | Encounter Summary ---
Demographics + + + | Address | [address] | | | [place] [address] | + + + | Home Phone | | + + + | Preferred Language | Unknown | + + + | Marital Status | Single | + + + | Baptism Affiliation | NON | + + + [...] + | Katalina Padilla | ECON | [address] | | | | | [place], [place] | | | | | [address] | | + + + + + | Ellie Vang | ECON | Unknown | | + + + + + Care Team Providers + +------+ + | Care Printing Gray Cloth Tender Name | Role | Phone | + +------+ + | Fadi Goodrich DO | PCP | | + +------+ + Encounter Details +--------+ + + + + | Date | Type | Department | Care Team | Description | +--------+ + + + + | 10/05/ | Abstract | Digestive Health | Hernandez Brian, | | | 2012 | | Center at [facility] [address] | MD [address] | | | | | [address] | [facility] | | | | | Mailcode: Center | [place], [place] | | | | | [facility] and | [address] | | | | | [facility], [facility] [address] | [phone] | | | | | [place], [place] | | | | | | [address] | | | | | | [phone] | | | +--------+ + + + [...] Rd | | | | | | [place], [place] | | | | | | [address] | | | | | | [phone] | | | | | | | | +--------+ + + + + | 06/24/ | Surgery | Surgery | Chilo | OPEN VENTRAL HERNIA | | 2018 | | | Jorje, MD [address] | REPAIR WITH | | | | | [address] | BIOLOGICAL MESH | | | | | [place], [place] | | | | | | [address] | | | | | | [phone] | | | | | | | | +--------+ + + + + | 06/30/ | Office | Cardiology | Randell Franks, | | | 2019 | Visit | | [address] | | | | | | [place] [facility] [place] | | | | | | [address] | | | | | | [phone] | | | | | | | | +--------+ + + + + documented as of this encounter Visit Diagnoses Not on filedocumented in this encounter"
--- OUTSIDE RECORDS SUMMARY | ~2019-06-01 | XMS | Encounter Summary ---
Demographics + + + | Address | [address] | | | [place] [address] | + + + | Home Phone [...] + | Katalina Padilla | ECON | [address] | | | | | [place], [place] | | | | | [address] | | + + + + + | Ellie Vang | ECON | Unknown | | + + + + + Care Team Providers + +------+ + | Care Manufacturing Quality Technician Name | Role | Phone | [...] from Patient; | | 2017 | | [facility] [address] | MD [address] | Postoperative | | | | Ave Mailcode: CH[address]S | [place], [place] | infection | | | | [facility] | [address] | | | | | and Healing, | [phone] | | | | | [place] [address] [facility] | | | | | | [place], [place] | | | | | | [address] | | | | | | [phone] | | | +--------+ + + + [...] | | | | | | [address] | | | | | | [place], [place] | | | | | | [address] | | | | | | [phone] | | | | | | | | +--------+ + + + + | 06/24/ | Surgery | Surgery | Chilo, | OPEN VENTRAL HERNIA | | 2018 | | | MD Jorje [address] | REPAIR WITH | | | | | [address] | BIOLOGICAL MESH | | | | | [place], [place] | | | | | | [address] | | | | | | [phone] | | | | | | | | +--------+ + + + + | 06/30/ | Office | Cardiology | Randell Franks, | | | 2018 | Visit | | [address] | | | | | | [place], [place] | | | | | | [address] | | | | | | [phone] | | | | | | | | +--------+ + + + + documented as of this encounter Visit Diagnoses Not on filedocumented in this encounter"
--- OUTSIDE RECORDS SUMMARY | ~2019-06-01 | XMS | Encounter Summary ---
Demographics + + + | Address | [address] | | | [place] [address] | + + + | Home Phone [...] [place], [place] | | | | | [address] | | + + + + + | Ellie Vang | ECON | Unknown | | + + + + + Care Team Providers + +------+ + | Care Project Controller Name | Role | Phone | + +------+ + | Fadi Goodrich DO | PCP | | + +------+ + Encounter Details +--------+------+ + + + | Date | Type | Department | Care Team | Description | +--------+------+ + + + | 12/05/ | Lab | Laboratory at [facility] | | Type 2 diabetes | | 2013 | | [address] | | mellitus (HCC) | | | | [place], [place] | | | | | | [address] | | | | | | [phone] | | | +--------+------+ + + + [...] Rd | | | | | | [place], [place] | | | | | | [address] | | | | | | [phone] | | | | | | | | +--------+ + + + + | 06/24/ | Surgery | Surgery | Chilo, | OPEN VENTRAL HERNIA | | 2018 | | | MD Jorje [address] | REPAIR WITH | | | | | [address] | BIOLOGICAL MESH | | | | | [place], [place] | | | | | | [address] | | | | | | [phone] | | | | | | | | +--------+ + + + + | 06/30/ | Office | Cardiology | Randell Frakns, | | | 2018 | Visit | | [address] | | | | | | [place], [place] | | | | | | [address] | | | | | | [phone] | | | | | | | [...] A1c | 4.3 - 5.6 % | [facility] | | | A1C | Interpretive | [...] | + + + + + | [facility] | [address] | [place] [address] | | | SERVICES, SPECIAL | PARK [...]
--- OUTSIDE RECORDS SUMMARY | ~2019-06-01 | XMS | Encounter Summary ---
Demographics + + + | Address | [address] | | | [place] [address] | + + + | Home Phone [...] Author + + + | Author | [facility] | + + + | Organization | [facility] | + + + | Address | Unknown | + + + | Phone | Unavailable | + + + Support + + + + + | Name | Relationship | Address | Phone | + + + + + | Katalina Padilla | ECON | [address] | | | | | [place], [place] | | | | | [address] | | + + + + + | Ellie Vang | ECON | Unknown | | + + + + + Care Team Providers + +------+ + | Care Corporate Recruiter Name | Role | Phone | + +------+ + | Kenyatta Cardenas MD | PCP | | + +------+ + Reason for Visit + + + | Reason | Comments | + + + | Treatment Planning | | + + + Encounter Details +--------+ + + + + | Date | Type | Department | Care Team | Description | +--------+ + + + + | 04/01/ | Telephone | Digestive Health | Keren Allen, | Treatment Planning | | 2019 | | Center at [place] [address] | AGACNP [address] | | | | | [address] | [place], [place] | | | | | Mailcode: [place] | [address] | | | | | for [facility] and | | | | | | [place] [address] | | | | | | [place], [place] | | | | | | [address] | | | | | | | [...] [address] | | | | | | [place] | | | | | | [address] | | | | | | [phone] | | | | | | | | +--------+ + + + + | 06/24/ | Surgery | Surgery | Chilo, | OPEN VENTRAL HERNIA | | 2018 | | | MD Jorje [address] | REPAIR WITH | | | | | [address] | BIOLOGICAL MESH | | | | | [place] | | | | | | [address] | | | | | | [phone] | | | | | | | | +--------+ + + + + | 06/30/ | Office | Cardiology | Randell Franks, | | | 2018 | Visit | | [address] | | | | | | [place] | | | | | | [address] | | | | | | [phone] | | | | | | | | +--------+ + + + + documented as of this encounter Visit Diagnoses Not on filedocumented in this encounter"
--- OUTSIDE RECORDS SUMMARY | ~2019-06-01 | XMS | Encounter Summary ---
Demographics + + + | Address | [address] | | | [place] [address] | + + + | Home Phone [...] + | Katalina Padilla | ECON | [address] | | | | | [place], [place] | | | | | [address] | | + + + + + | Ellie Vang | ECON | Unknown | | + + + + + Care Team Providers + +------+ + | Care Plant Superintendent Name | Role | Phone | + +------+ + | Fadi Goodrich DO | PCP | | + +------+ + Reason for Visit + + + | Reason | Comments | + + + | Follow-up visit | | + + + Encounter Details +--------+---------+ + + + | Date | Type | Department | Care Team | Description | +--------+---------+ + + + | 06/04/ | Office | Cardiology | Randell Franks, | Type 2 diabetes | | 2018 | Visit | [facility]ive at [facility] | [address] | mellitus without | | | | [address] | Ave [place], [place] | complication, with | | | | Mailcode: [facility] | [address] | long-term current | | | | [facility] | [phone] | use of insulin ([facility]) | | | | and Healing, | | (Primary Dx); | | | | [address] | | Chronic right-sided | | | | [place], [place] | | heart failure (HCC) | | | | [address] | | | | | | [phone] | | | +--------+---------+ + + + [...] + + + | Blood Pressure | 118/60 | 06/04/2018 10:59 AM | | | | | PST | | + + + + + | Pulse | 90 | 06/04/2018 10:59 AM | | | | | PST | | + + + + + | Temperature | 36.6 C (97.8 F) | 06/04/2018 10:59 AM | | | | | PST | | + + + + + | Respiratory Rate | 18 | 06/04/2018 10:59 AM | | | | | PST | | + + + + + | Oxygen Saturation | 92% | 06/04/2018 10:59 AM | | | | | PST | | + + + + + | Inhaled Oxygen | - | - | | | Concentration | | | | + + + + + | Weight | 145.3 kg (320 lb 6.4 | 06/04/2018 10:59 AM | | | | oz) | PST | | + + + + + | Height | 149.9 cm (4' 11") | 06/04/2018 10:59 AM | | | | | PST | | + + + + + | Body Mass Index | 64.71 | 06/04/2018 10:59 AM | | | | | PST [...] documented as of this encounter Progress Notes Clements, Gissell, MD - 06/04/2018 10:35 AM PST FOLLOW-UP PATIENT EVALUATION Chief Complaint Patient presents with Follow-up visit History of Present Illness Elzbieta Cristina [facility] for follow up on type II diabetes mellitus and weight management. Patient was last seen by Dr. Franks in 10/2017. At that time, the plan was the followin) Continue healthy diet and activity as tolerated 2) Continue management of her heart failure by her Front Window Cashier 3) Check A1c, lipids 4) Await bariatric surgery in February 2018 5) Continue phentermine 37.5 mg daily 6) Continue wound care, non-pressure ambulation of right foot wound 7) Follow-up 4-6 months In the interim, the patient underwent bariatric surgery and was discharged from the [facility] on 03/03/2018. Today, the patient reports the following: - Since her surgery, she is having constant abdominal pain. Usually worse after she eats an d unable to keep solid foods down. - She is losing weight but concerned about hernia pain vs ulcer pain vs post-surgical compl ication. - Also concerned about her own nutrition - Barium swallow on Thursday and Endoscopy 06/23 - She is working with the payroll analyst in her office - She is taking phentermine 37.5mg daily and topiramate 50 BID- started taking it again aft er 1 week after her surgery - She is taking fenofibrate and watching her intake of fatty foods - Main complaint is abdominal pain, fatigue and sick of extra skin. She is hoping to see so zuly for surgery of her extra skin after 02/2019 Diet- Above Exercise- Limited due to pain Medications- Above Allergies Allergies Allergen Reactions Amoxicillin Benadrilina [Diphenhydramine Hcl] [...] tongue once daily., Disp: , Rfl: CALCIUM [id number]-[id number]-GENIS ORAL, Take 2 tablets by mouth two [...] oral tablet, Take 1 tablet by mo uth three times daily., Disp: 90 tablet, Rfl: [...] for nausea/vomiting., Disp: 30 tablet, Rfl: 1 PARoxetine 10 mg oral tablet, Take 10 mg by mouth once daily., Disp: , Rfl: phentermine 37.5 mg oral [...] l: torsemide 100 mg oral tablet, Take 0.5 [...] once daily with dinner., Disp: , Rfl: Physical Exam BP 118/60 | Pulse 90 | Temp (Src) 36.6 C (97.8 F) (Oral) | RR 18 | Ht 1.499 m (4' 11") | Wt 145.3 kg (320 lb 6.4 oz) | SpO2 92% | BMI 64.71 kg/(m^2) General: appears well, oriented, no acute distress HEENT: extra-ocular motion intact, JVP is normal Cardiovascular: normal S1, S2, no murmurs, rubs or gallops are appreciated Respiratory: breath sounds present bilaterally in posterior lung coley, no crackles or whe ezes Abdomen: soft, non-tender Extremities: warm and well perfused, multiple folds of extra skin and pannus formation Neuro: no focal abnormalities Laboratory Values Lab Results Component Value Date LDL 61 05/27/2018 LDL 68 11/20/2017 LDL 91 11/28/2016 HDL 47 05/27/2018 HDL 38 (L) 11/20/2017 HDL 34 (L) 11/28/2016 TRI 172 (H) 05/27/2018 TRI 184 (H) 11/20/2017 TRI 248 (H) 11/28/2016 CHOL 142 05/27/2018 CHOL 143 11/20/2017 CHOL 175 11/28/2016 Lab Results Component Value Date NA 140 05/27/2018 K 3.0 05/27/2018 CL 102 05/27/2018 BICARB 27 05/27/2018 BUN 11 05/27/2018 CR 0.85 05/27/2018 GLU 123 05/27/2018 CA 9.7 05/27/2018 AST 34 05/27/2018 ALT 36 05/27/2018 AP 128 05/27/2018 TBILI 0.6 05/27/2018 TP 8.5 05/27/2018 ALB 3.2 05/27/2018 ANIONGAP 11 05/27/2018 ANIONALBCOR 13 05/27/2018 Lab Results Component Value Date TSH 3.19 11/28/2016 Lab Results Component Value Date [id number] 88.6 05/27/2018 Lab Results Component Value Date A1C 6.1 (H) 05/27/2018 Cardiac Imaging Transthoracic Echocardiogram: 11/07/2015 1. The interpretation of images is limited by poor acoustic windows. 2. The left ventricular cavity size is normal. 3. The LV ejection fraction is normal. 4. The right ventricular size is moderately enlarged. 5. Moderately reduced RV systolic function. 6. There are no prior exams available for comparison. Impression/Plan Elzbieta Cristina returns to [facility] for follow up on type II diabetes mellitus and weight management. #Morbid obesity: She reached maximal medical weight loss ~100 pounds from her baseline weig ht with medications only. Per patient, max weight of 495-529?lbs. S/p bariatric surgery with current weight of 320lbs. Plan to work with payroll analyst from bariatric surgery, identify etio logy of abdominal pain, and continue medical management with phentermine only. #Hypothyroidism: TSH stable, will continue to monitor yearly. Will need to be checked at ne xt visit. Discussed taking her thyroid medication apart from her iron and calcium medication s #Lipedema: Will need liposuction a year after RYGB. #High vitamin D, high calcium and high PTH: Discussed decreasing her intake from 50,000U 2x weekly to 1x weekly and to hold off increasing calcium until after her GI studies. Plan to repeat labs at next visit with bariatric surgery vs our clinic. #HFpEF: This is currently being managed well by her Front Window Cashier with diuretics and mainte nance of her massive weight loss. No longer requiring insulin so this will help as well. #T2 Diabetes: Her A1c is doing much better now. Will continue present management and monit or A1c. #Follow up: 6 months This patient has been evaluated and staffed with Dr. Franks who agrees with the above stat ement and plan. Gissell Clements MD Fellow, Cardiovascular Medicine Pager [phone] signed by Gissell Clements MD at 06/04/2018 10:05 PM PST Associated attestation - Randell Franks MD - 06/04/2018 10:05 PM PSTI personally interv iewed the patient, performed the pertinent parts of the physical examination and personally formulated the plan with the resident. I agree with the residents documentation and have do cumented any additions or exceptions. Randell Franks MD documented in this encounter Plan of Treatment [...] Rd | | | | | | [place], [place] | | | | | | [address] | | | | | | [phone] | | | | | | | | +--------+ + + + + | 06/24/ | Surgery | Surgery | Chilo, | OPEN VENTRAL HERNIA | | 2018 | | | MD [address] | REPAIR WITH | | | | | [address] | BIOLOGICAL MESH | | | | | [place], [place] | | | | | | [address] | | | | | | [phone] | | | | | | | | +--------+ + + + + | 06/30/ | Office | Cardiology | Randell Franks, | | | 2018 | Visit | | MD [address] | | | | | | [address] [place], [place] | | | | | | [address] | | | | | | [phone] | | | | | | | | +--------+ + + + + documented as of this encounter Visit Diagnoses + + | Diagnosis | + + | Type 2 diabetes mellitus without complication, with long-term current use of insulin | | (HCC) - Primary | + + | Chronic right-sided heart failure (HCC) Congestive heart failure, unspecified | + + documented in this encounter
--- OUTSIDE RECORDS SUMMARY | ~2019-06-01 | XMS | Encounter Summary ---
Demographics + + + | Address | [address] | | | [place] [address] | + + + | Home Phone | | + + + | Preferred Language | Unknown | + + + | Marital Status | Single | + + + | Oriental Orthodox Affiliation | NON | + + [...] + | Katalina Padilla | ECON | [address] | | | | | [place], [place] | | | | | [address] | | + + + + + | Ellie Vang | ECON | Unknown | | + + + + + Care Team Providers + +------+ + | Care Relocation Counselor Name | Role | Phone | + +------+ + | Fadi Goodrich DO | PCP | | + +------+ + Encounter Details +--------+------+ + + + | Date | Type | Department | Care Team | Description | +--------+------+ + + + | 05/27/ | Lab | Laboratory at [facility] | | History of Frandy-en-Y | | 2017 | | [address] | | gastric bypass; | | | | [place], [place] | | Ventral hernia | | | | [address] | | without obstruction | | | | [phone] | | or gangrene; 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) | +--------+------+ + + + Social History [...] [place] | | | | | | [address] | | | | | | [phone] | | | | | | | | +--------+ + + + + | 06/24/ | Surgery | Surgery | Chilo | OPEN VENTRAL HERNIA | | 2018 | | | MD [address] | REPAIR WITH | | | | | [address] | BIOLOGICAL MESH | | | | | [place], [place] | | | | | | [address] | | | | | | [phone] | | | | | | | | +--------+ + + + + | 06/30/ | Office | Cardiology | Randell Franks, | | | 2019 | Visit | | [address] | | | | | | [place], [place] | | | | | | [address] | | | | | | [phone] | | | | | | | | +--------+ + + + + documented as of this encounter Procedures + +--------+ + + + | Procedure Name | Priori | Date/Time | Associated Diagnosis | Comments | | | ty | | | | + +--------+ + + + | CBC (HEMOGRAM) ONLY | Routin | 05/27/2018 | History of | Results for this | | | e | 4:01 PM | Frandy-en-Y gastric | procedure are in the | | | | PDT | bypass Ventral | [...] | | | | | adult (HCC) PCOS | | | | | | (polycystic ovarian | | | | | | syndrome) | | + +--------+ + + + | VITAMIN B1, WHOLE | Routin | 05/27/2018 | History of | Results for this | | BLOOD | e | 4:01 PM | Frandy-en-Y gastric | procedure are in the | | | | PDT | bypass Ventral | [...] | | | | | adult (HCC) PCOS | | | | | | (polycystic ovarian | | | | | | syndrome) | | + +--------+ + + + | VITAMIN D, | Routin | 05/27/2018 | History of | Results for this | | 25-HYDROXY, SERUM | e | 4:01 PM | Frandy-en-Y gastric | procedure are in the | | | | PDT | bypass Ventral | [...] | | | | | adult (HCC) PCOS | | | | | | (polycystic ovarian | | | | | | syndrome) | | + +--------+ + + + | COMPLETE METABOLIC | Routin | 05/27/2018 | History of | Results for this | | SET | e | 4:01 PM | Frandy-en-Y gastric | procedure are in the | | (NA,K,CL,CO2,BUN,CRE | | PDT | bypass Ventral | results section. | | AT,GLUC,CA,AST,ALT,B | | | hernia without | | | MARGIE TOTAL,ALK | | | obstruction or | | | PHOS,ALB,PROT TOTAL) | | | gangrene Mixed | | [...] | | | | | adult (HCC) PCOS | | | | | | (polycystic ovarian | | | | | | syndrome) | | + +--------+ + + + | CBC ONLY | Routin | 05/27/2018 | History of | Results for this | | | e | 4:01 PM | Frandy-en-Y gastric | procedure are in the | | | | PDT | bypass Ventral | [...] | | | | | adult (HCC) PCOS | | | | | | (polycystic ovarian | | | | | | syndrome) | | + +--------+ + + + | FERRITIN | Routin | 05/27/2018 | History of | Results for this | | | e | 4:01 PM | Frandy-en-Y gastric | procedure are in the | | | | PDT | bypass Ventral | [...] | | | | | adult (HCC) PCOS | | | | | | (polycystic ovarian | | | | | | syndrome) | | + +--------+ + + + | PTH, SERUM | Routin | 05/27/2018 | History of | Results for this | | | e | 4:01 PM | Frandy-en-Y gastric | procedure are in the | | | | PDT | bypass Ventral | [...] | | | | | adult (HCC) PCOS | | | | | | (polycystic ovarian | | | | | | syndrome) | | + +--------+ + + + | LIPID SET (TRIG, T | Routin | 05/27/2018 | History of | Results for this | | CHOL, HDL, CALC LDL) | e | 4:01 PM | Frandy-en-Y gastric | procedure are in the | | | | PDT | bypass Ventral | [...] | | | | | adult (HCC) PCOS | | | | | | (polycystic ovarian | | | | | | syndrome) | | + +--------+ + + + | VITAMIN B-12 | Routin | 05/27/2018 | History of | Results for this | | | e | 4:01 PM | Frandy-en-Y gastric | procedure are in the | | | | PDT | bypass Ventral | [...] | | | | | adult (HCC) PCOS | | | | | | (polycystic ovarian | | | | | | syndrome) | | + +--------+ + + + | HEMOGLOBIN A1C, | Routin | 05/27/2018 | History of | Results for this | | BLOOD | e | 4:01 PM | Frandy-en-Y gastric | procedure are in the | | | | PDT | bypass Ventral | [...] | | | | | adult (HCC) PCOS | | | | | | (polycystic ovarian | | | | | | syndrome) | | + +--------+ + + + | IRON AND TIBC, SERUM | Routin | 05/27/2018 | History of | Results for this | | | e | 4:01 PM | Fradny-en-Y gastric | procedure are in the | | | | PDT | bypass Ventral | [...] | | | | | adult (HCC) PCOS | | | | | | (polycystic ovarian | | | | | | syndrome) | | + +--------+ + + + documented in this encounter Results CBC (HEMOGRAM) ONLY (05/27/2018 4:01 PM PDT) + + + + + + | Component | Value | Ref Range | Performed | Pathologist | | | | | At | Signature | + + + + + + | WHITE CELL | 12.50 (H) | 3.50 - 10.80 | [facility] | | | COUNT | | K/cu mm | LABORATORY | | | | | | SERVICES, | | | | | | CORE | | + + + + + + | RED CELL | 6.05 (H) | 4.00 - 5.20 | [facility] | | | COUNT | | M/cu mm | LABORATORY | | | | | | SERVICES, | | | | | | CORE | | + + + + + + | HEMOGLOBIN | 16.3 (H) | 12.0 - 16.0 | [facility] | | | | | g/dL | LABORATORY | | | | | | SERVICES, | | | | | | CORE | | + + + + + + | HEMATOCRIT | 50.4 (H) | 36.0 - 46.0 % | [facility] | | | | | | LABORATORY | | | | | | SERVICES, | | | | | | CORE | | + + + + + + | MCV | 83.3 | 80.0 - 100.0 fL | [facility] | | | | | | LABORATORY | | | | | | SERVICES, | | | | | | CORE | | + + + + + + | MCHC | 32.3 | 32.0 - 36.0 | [facility] | | | | | g/dL | LABORATORY | | | | | | SERVICES, | | | | | | CORE | | + + + + + + | RDW SD | 43.5 | 35.1 - 46.3 fL | [facility] | | | | | | LABORATORY | | | | | | SERVICES, | | | | | | CORE | | + + + + + + | PLATELET | 318 | 150 - 400 K/cu | [facility] | | | COUNT | | mm | LABORATORY | | | | | | SERVICES, | | | | | | CORE | | + + + + + + | MPV | 11.0 | 9.7 - 12.3 fL | [facility] [...] | + + + + + | [facility] | [address] | [place] [address] | | | SERVICES, CORE | [address] | | | + + + + + LIPID SET (TRIG, T CHOL, [...] | + + + + + | [facility] | [address] | [place] [address] | | | LYDIA RANGEL | CLARENCE [...] (H)Comment: Hgb A1C | <5.7 % | [facility] | | | A1C | Interpretive | [...] | [facility] | | considered for monitoring intermediate glycemic control in patients with: | LABORATORY [...] | + + + + + | [facility] | [address] | [place] [address] | | | SERVICES, SPECIAL | PARK [...] INTERPRETIVE | 70 - 180 nmol/L | [facility] | | | WHOLE | INFORMATION: Vitamin [...] | | | | | determined by [facility] | | | | | | Laboratories. See | | | | | | Compliance Statement B: | | | | | | [facility].VisConPro/CSPerformed | | | | | | by [employer],[address] | | | | | | Liliana Martinez [facility],[place] | | | | | | [address] | | | | | | [phone].[facility]. | | | | | | comIsmael [...] [facility] | [address] | [place], [place] | | | [facility] | | [address] | | + + + + + [...] | | | LABORATORY | | | SUDANESE | | | SERVICES, | | | [...] | + + + + + | [facility] | [address] | [place] [address] | | | SERVICES, CORE | [address]ENCE [...] [facility] | [address] | [place] [address] | | | SERVICES, CORE | PARK [...] | + + + + + | [facility] | [address] | [place] [address] | | | SERVICES, CORE | CLARENCE [...] + | [facility] | [address] | [place] [address] | | | SERVICES, CORE | CLARENCE [...] + | [facility] | [address] | [place] [address] | | | SERVICES, CORE | PARK [...] | + + + + + | [email or web address] | [address] | [place] [address] | | | SERVICES, CORE | PARK [...] ovaries | + + documented in this encounter"
--- OUTSIDE RECORDS SUMMARY | ~2019-06-01 | XMS | Encounter Summary ---
Demographics + + + | Address | [address] | | | [place] [address] | + + + | Home Phone [...] + | Katalina Padilla | ECON | [address] | | | | | [place], [place] | | | | | [address] | | + + + + + | Ellie Vang | ECON | Unknown | | + + + + + Care Team Providers + +------+ + | Care Deputy Chief Magistrate Name | Role | Phone | + +------+ + | Fadi Goodrich DO | PCP | | + +------+ + Encounter Details +--------+ + + + + | Date | Type | Department | Care Team | Description | +--------+ + + + + | 06/02/ | Telephone | Digestive Health | Ronna Clarke, | | | 2017 | | Center at [facility] [address] | ACNP [address] | | | | | [address] | Ave [place], [place] | | | | | Mailcode: [place] | [address] | | | | | for Health and | [phone] | | | | | [facility] 2 | | | | | | [place], [place] | | | | | | [address] | | | | | | | [...] Rd | | | | | | [place], [place] | | | | | | [address] | | | | | | [phone] | | | | | | | | +--------+ + + + + | 06/24/ | Surgery | Surgery | Chilo | OPEN VENTRAL HERNIA | | 2018 | | | MD [address] | REPAIR WITH | | | | | [address] | BIOLOGICAL MESH | | | | | [place], [place] | | | | | | [address] | | | | | | [phone] | | | | | | | | +--------+ + + + + | 06/30/ | Office | Cardiology | Randell Franks, | | | 2018 | Visit | | [address] | | | | | | [place] | | | | | | [address] | | | | | | [phone] | | | | | | | | +--------+ + + + + documented as of this encounter Visit Diagnoses Not on filedocumented in this encounter"
--- OUTSIDE RECORDS SUMMARY | ~2019-06-01 | XMS | Encounter Summary ---
Demographics + + + | Address | [address] | | | [place] [address] | + + + | Home Phone | | + + + | Preferred Language | Unknown | + + + | Marital Status | Single | + + + | Taoism Affiliation | NON | + + + [...] + | Katalina Padilla | ECON | [address] | | | | | [place], [place] | | | | | [address] | | + + + + + | Ellie Vang | ECON | Unknown | | + + + + + Care Team Providers + +------+ + | Care Communication Signals Intelligence Name | Role | Phone | + [...] | | | [address] | [facility] | | | | | Mailcode: Center | [place], [place] | | | | | [facility] and | [address] | | | | | [facility] 2 | [phone] | | | | | [place], [place] | | | | | | [address] | | | | | | [phone] | | | +--------+ + + + [...] Rd | | | | | | [place], [place] | | | | | | [address] | | | | | | [phone] | | | | | | | | +--------+ + + + + | 06/24/ | Surgery | Surgery | Chilo, | OPEN VENTRAL HERNIA | | 2018 | | | MD Jorje [address] | REPAIR WITH | | | | | [address] | BIOLOGICAL MESH | | | | | [facility] [place] | | | | | | [address] | | | | | | [phone] | | | | | | | | +--------+ + + + + | 06/30/ | Office | Cardiology | Randell Franks, | | | 2018 | Visit | | [address] | | | | | | [place] [facility] [place] | | | | | | [address] | | | | | | [phone] | | | | | | | | +--------+ + + + + documented as of this encounter Visit Diagnoses Not on filedocumented in this encounter"
--- OUTSIDE RECORDS SUMMARY | ~2019-06-01 | XMS | Encounter Summary ---
Demographics + + + | Address | [address] | | | [place] [address] | + + + | Home Phone [...] + | Katalina Padilla | ECON | [address] | | | | | [place], [place] | | | | | [address] | | + + + + + | Ellie Vang | ECON | Unknown | | + + + + + Care Team Providers + +------+ + | Care Loss Prevention Lead Name | Role | Phone | + +------+ + | Fadi Goodrich DO | PCP | | + +------+ + Encounter Details +--------+ + + + + | Date | Type | Department | Care Team | Description | +--------+ + + + + | 03/28/ | Abstract | Cardiology | Randell Franks, | | | 2014 | | Preventive at [facility] | MD [address] | | | | | [address] | Ave [place], [place] | | | | | Mailcode: CH9A | [address] | | | | | [facility] | [phone] | | | | | and Healing, | | | | | | [address] | | | | | | [place], [place] | | | | | | [address] | | | | | | [phone] | | | +--------+ + + + [...] Rd | | | | | | [place], [place] | | | | | | [address] | | | | | | [phone] | | | | | | | | +--------+ + + + + | 06/24/ | Surgery | Surgery | Chilo, | OPEN VENTRAL HERNIA | | 2018 | | | MD Jorje [address] | REPAIR WITH | | | | | [address] | BIOLOGICAL MESH | | | | | [place], [place] | | | | | | [address] | | | | | | [phone] | | | | | | | | +--------+ + + + + | 06/30/ | Office | Cardiology | Randell Franks, | | | 2019 | Visit | | MD [address] | | | | | | Ave [place], [place] | | | | | | [address] | | | | | | [phone] | | | | | | | | +--------+ + + + + documented as of this encounter Visit Diagnoses Not on filedocumented in this encounter"
--- OUTSIDE RECORDS SUMMARY | ~2019-06-01 | XMS | Encounter Summary ---
Demographics + + + | Address | [address] | | | [place] [address] | + + + | Home Phone [...] + | Katalina Padilla | ECON | [address] | | | | | [place], [place] | | | | | [address] | | + + + + + | Ellie Vang | ECON | Unknown | | + + + + + Care Team Providers + +------+ + | Care Iron Piler Name | Role | Phone | + [...] | | 2019 | | Center at [facility] [address] | AGACNP [address] | | | | | [address] | [place], [place] | | | | | Mailcode: [place] | [address] | | | | | for [facility] and | | | | | | [place] [address] | | | | | | [place], [place] | | | | | | [address] | | | | | | | [...] Rd | | | | | | [place] | | | | | | [address] | | | | | | [phone] | | | | | | | | +--------+ + + + + | 06/24/ | Surgery | Surgery | Chilo, | OPEN VENTRAL HERNIA | | 2018 | | | MD Jorje [address] | REPAIR WITH | | | | | [address] | BIOLOGICAL MESH | | | | | [place] | | | | | | [address] | | | | | | [phone] | | | | | | | | +--------+ + + + + | 06/30/ | Office | Cardiology | Randell Franks, | | | 2018 | Visit | | [address] | | | | | | [place] | | | | | | [address] | | | | | | [phone] | | | | | | | | +--------+ + + + + documented as of this encounter Visit Diagnoses Not on filedocumented in this encounter"
--- OUTSIDE RECORDS SUMMARY | ~2019-06-01 | XMS | Encounter Summary ---
Demographics + + + | Address | [address] | | | [place] [address] | + + + | Home Phone [...] + | Katalina Padilla | ECON | [address] | | | | | [place], [place] | | | | | [address] | | + + + + + | Ellie Vang | ECON | Unknown | | + + + + + Care Team Providers + +------+ + | Care Glass Blower Name | Role | Phone | [...] | | 2017 | | Preventive at [facility] | MD [address] | | | | | [address] | Ave [place], [place] | | | | | Mailcode: CH9A | [address] | | | | | [facility] | [phone] | | | | | and [facility], | | | | | | [address] | | | | | | [place], [place] | | | | | | [address] | | | | | | [phone] | | | +--------+ + + + [...] Rd | | | | | | [place], [place] | | | | | | [address] | | | | | | [phone] | | | | | | | | +--------+ + + + + | 06/24/ | Surgery | Surgery | Chilo, | OPEN VENTRAL HERNIA | | 2018 | | | MD [address] | REPAIR WITH | | | | | [address] | BIOLOGICAL MESH | | | | | [place], [place] | | | | | | [address] | | | | | | [phone] | | | | | | | | +--------+ + + + + | 06/30/ | Office | Cardiology | Randell Franks, | | | 2019 | Visit | | MD [address] | | | | | | [place] | | | | | | [address] | | | | | | [phone] | | | | | | | | +--------+ + + + + documented as of this encounter Visit Diagnoses Not on filedocumented in this encounter"
--- OUTSIDE RECORDS SUMMARY | ~2019-06-01 | XMS | Encounter Summary ---
Demographics + + + | Address | [address] | | | [place] [address] | + + + | Home Phone [...] + | Katalina Padilla | ECON | [address] | | | | | [place], [place] | | | | | [address] | | + + + + + | Ellie Vang | ECON | Unknown | | + + + + + Care Team Providers + +------+ + | Care Drawing Operator Name | Role | Phone | + +------+ + | Fadi Goodrich DO | PCP | | + +------+ + Encounter Details +--------+ + + + + | Date | Type | Department | Care Team | Description | +--------+ + + + + | 02/10/ | Telephone | Digestive Health | Hernandez Brian, | | | 2012 | | Center at [facility] [address] | MD [address] | | | | | [address] | [place] | | | | | Mailcode: [place] | [place], [place] | | | | | [facility] and | [address] | | | | | [facility] 2 | [phone] | | | | | [place], [place] | | | | | | [address] | | | | | | [phone] | | | +--------+ + + + [...] Rd | | | | | | [place], [place] | | | | | | [address] | | | | | | [phone] | | | | | | | | +--------+ + + + + | 06/24/ | Surgery | Surgery | Chilo | OPEN VENTRAL HERNIA | | 2018 | | | MD Jorje [address] | REPAIR WITH | | | | | [address] | BIOLOGICAL MESH | | | | | [place], [place] | | | | | | [address] | | | | | | [phone] | | | | | | | | +--------+ + + + + | 06/30/ | Office | Cardiology | Randell Franks, | | | 2018 | Visit | | [address] | | | | | | Ave [place], [place] | | | | | | [address] | | | | | | [phone] | | | | | | | | +--------+ + + + + documented as of this encounter Visit Diagnoses Not on filedocumented in this encounter"
--- OUTSIDE RECORDS SUMMARY | ~2019-06-01 | XMS | Encounter Summary ---
Demographics + + + | Address | [address] | | | [place] [address] | + + + | Home Phone [...] + | Katalina Padilla | ECON | [address] | | | | | [place], [place] | | | | | [address] | | + + + + + | Ellie Vang | ECON | Unknown | | + + + + + Care Team Providers + +------+ + | Care Psychology Clinician Name | Role | Phone | + +------+ + | Kenyatta Cardenas MD | PCP | | + +------+ + Encounter Details +--------+ + + + + | Date | Type | Department | Care Team | Description | +--------+ + + + + | 12/01/ | Documentati | Digestive Health | Clinic, Surgery | | | 2016 | on | Center at [place] [address] | | | | | | [address] | | | | | | Mailcode: [place] | | | | | | for Health and | | | | | | [facility] 2 | | | | | | [place], [place] | | | | | | [address] | | | | | | [phone] | | | +--------+ + + + [...] Rd | | | | | | [place], [place] | | | | | | [address] | | | | | | [phone] | | | | | | | | +--------+ + + + + | 06/24/ | Surgery | Surgery | Chilo, | OPEN VENTRAL HERNIA | | 2018 | | | MD [address] | REPAIR WITH | | | | | [address] | BIOLOGICAL MESH | | | | | [place], [place] | | | | | | [address] | | | | | | [phone] | | | | | | | | +--------+ + + + + | 06/30/ | Office | Cardiology | Randell Franks, | | | 2018 | Visit | | MD [address] | | | | | | Ave [place], [place] | | | | | | [address] | | | | | | [phone] | | | | | | | | +--------+ + + + + documented as of this encounter Visit Diagnoses Not on filedocumented in this encounter"
--- OUTSIDE RECORDS SUMMARY | ~2019-06-01 | XMS | Encounter Summary ---
Demographics + + + | Address | [address] | | | [place] [address] | + + + | Home Phone [...] + | Katalina Padilla | ECON | [address] | | | | | [place], [place] | | | | | [address] | | + + + + + | Ellie Vang | ECON | Unknown | | + + + + + Care Team Providers + +------+ + | Care Undergraduate Internship Name | Role | Phone | + [...] | | 2016 | | Preventive at [facility] | [address] | ([place]) | | | | [address] | Ave [place], [place] | | | | | Mailcode: [place] | [address] | | | | | [facility] | [phone] | | | | | and [address], | | | | | | [address] | | | | | | [place], [place] | | | | | | [address] | | | | | | [phone] | | | +--------+ + + + [...] [place] | | | | | | [address] | | | | | | [phone] | | | | | | | | +--------+ + + + + | 06/24/ | Surgery | Surgery | Chilo | OPEN VENTRAL HERNIA | | 2018 | | | MD [address] | REPAIR WITH | | | | | [address] | BIOLOGICAL MESH | | | | | [place] | | | | | | [address] | | | | | | [phone] | | | | | | | | +--------+ + + + + | 06/30/ | Office | Cardiology | Randell Franks, | | | 2019 | Visit | | MD [address] | | | | | | [place], [place] | | | | | | [address] | | | | | | [phone] | | | | | | | | +--------+ + + + + documented as of this encounter Visit Diagnoses Not on filedocumented in this encounter"
--- OUTSIDE RECORDS SUMMARY | ~2019-06-01 | XMS | Encounter Summary ---
Demographics + + + | Address | [address] | | | [place] [address] | + + + | Home Phone [...] + | Katalina Padilla | ECON | [address] | | | | | [place], [place] | | | | | [address] | | + + + + + | Ellie Vang | ECON | Unknown | | + + + + + Care Team Providers + +------+ + | Care Beer Runner Name | Role | Phone | [...] | | 2014 | | Preventive at [facility] | [address] | ([place]); | | | | [address] | [place], [place] | Refill Request | | | | Mailcode: [place] | [address] | | | | | [facility] | [phone] | | | | | and [address], | | | | | | [address] | | | | | | [place], [place] | | | | | | [address] | | | | | | [phone] | | | +--------+--------+ + + + [...] Rd | | | | | | [place], [place] | | | | | | [address] | | | | | | [phone] | | | | | | | | +--------+ + + + + | 06/24/ | Surgery | Surgery | Chilo | OPEN VENTRAL HERNIA | | 2018 | | | MD [address] | REPAIR WITH | | | | | [address] | BIOLOGICAL MESH | | | | | [facility] [place] | | | | | | [address] | | | | | | [phone] | | | | | | | | +--------+ + + + + | 06/30/ | Office | Cardiology | Randell Franks, | | | 2019 | Visit | | [address] | | | | | | [place], [place] | | | | | | [address] | | | | | | [phone] | | | | | | | | +--------+ + + + + documented as of this encounter Visit Diagnoses Not on filedocumented in this encounter"
--- OUTSIDE RECORDS SUMMARY | ~2019-06-01 | XMS | Encounter Summary ---
Demographics + + + | Address | [address] | | | [place] [address] | + + + | Home Phone [...] + | Katalina Padilla | ECON | [address] | | | | | [place], [place] | | | | | [address] | | + + + + + | Ellie Vang | ECON | Unknown | | + + + + + Care Team Providers + +------+ + | Care Buckle Assembler Name | Role | Phone | + +------+ + | Fadi Goodrich DO | PCP | | + +------+ + Encounter Details +--------+------+ + + + | Date | Type | Department | Care Team | Description | +--------+------+ + + + | 10/12/ | Lab | Laboratory at [facility] | | | | 2019 | | [address] | | | | | | [place], [place] | | | | | | [address] | | | | | | [phone] | | | +--------+------+ + + + [...] Rd | | | | | | [facility] [place] | | | | | | [address] | | | | | | [phone] | | | | | | | | +--------+ + + + + | 06/24/ | Surgery | Surgery | Chilo, | OPEN VENTRAL HERNIA | | 2018 | | | MD [address] | REPAIR WITH | | | | | [address] | BIOLOGICAL MESH | | | | | [facility] [place] | | | | | | [address] | | | | | | [phone] | | | | | | | | +--------+ + + + + | 06/30/ | Office | Cardiology | Randell Franks, | | | 2018 | Visit | | [address] | | | | | | [place], [place] | | | | | | [address] | | | | | | [phone] | | | | | | | [...] + + + + + | [facility] | [address] | [place] [address] | | | LYDIA RANGEL | CLARENCE [...] INTFC | | | | determined by [employer] | | | | | | Laboratories. See | | | | | | Compliance Statement B: | | | | | | The [employer]/CSPerformed | | | | | | by Differential,500 | | | | | | Natalia Martinez, [facility],[place] | | | | | | [address] | | | | | | [phone].[employer]. | | | | | | Dole TianIsmael MD, | | | | | | [...] [facility] | [address] | [place], [place] | | | UNIV PTH - INTFC | | [address] | | + + + + + [...] | | | | | determined by [employer] | | | | | | Laboratories. See | | | | | | Compliance Statement B: | | | | | | [employer].Dole Tian/CSPerformed | | | | | | by Differential,500 | | | | | | [facility] | | | | | | [address] | | | | | | [phone].[employer]. | | | | | | com, Ismael Willis MD, | | | | | | Lab. Director | | | | + + + + + + + + | Specimen | + + | Blood - Blood | | (substance) | + + + + + + + | Performing | Address | City/State/[facility] Cliniccode | Phone Number | | Organization | | | | + + + + + | [facility] | [address] | [place], [place] | | | UNIV PTH - INTFC | | [address] | | + + + + + [...] [facility] | | | (YEN NOAH) | [facility],[address] | | REG UNIV | | | SERUM | [facility] | | PTH - INTFC | | | | [address] | | | | | | [phone]. | | | | | | Ismael [...] B: | | | | | | [employer]/CS | | | | + + + + + + + + | Specimen | + + | Blood - Blood | | (substance) | + + + + + + + | Performing | Address | City/State/Zipcode | Phone Number | | Organization | | | | + + + + + | [facility] | [address] | [place], [place] | | | UNIV PTH - INTFC | | [address] | | + + + + + [...] [facility] | [address] | [place] [address] | | | SERVICES, CORE | PARK [...] | + + + + + | [facility] | [address] | [place] [address] | | | SERVICES, CORE | CLARENCE [...] | 70 - 180 nmol/L | [facility] | | | WHOLE | [...] | | | | | determined by [facility] | | | | | | Laboratories. See | | | | | | Compliance Statement B: | | | | | | [employer].Dole Tian/CSPerformed | | | | | | by Differential,500 | | | | | | Natalia Martinez [facility],[place] | | | | | | [address] | | | | | | [phone].[employer]. | | | | | | com, [...] [facility] | [address] | [place], [place] | | | UNIV PTH - INTFC | | [address] | | + + + + + [...] | + + + + + | [facility] | [address] | [place] [address] | | | SERVICES, LYDIA | CLARENCE [...] | | | | | determined by [employer] | | | | | | hetras. See | | | | | | Compliance Statement B: | | | | | | [employer].Dole Tian/CSPerformed | | | | | | by Differential,500 | | | | | | [place], [place] | | | | | | [address] | | | | | | [phone].[employer]. | | | | | | comIsmael [...] [facility] | [address] | [place], [place] | | | UNIV PTH - INTFC | | [address] | | + + + + + [...] [facility] | [address] | [place] [address] | | | SERVICES, CORE | PARK [...] | + + + + + | [facility] | [address] [facility] | [place] [address] | | | SERVICES, SPECIAL | PARK [...] | + + + + + | [facility] | [address] | [place] [address] | | | SERVICES, CORE | CLARENCE [...] at | | | | | | [email or web address].[employer].Dole Tian/csPerfor | | | | | | med by [facility] | | | | | | [facility],[address] [place] [address] | | | | | | Juan [facility],[place] [address] | | | | | | [phone].[facility]. | | | | | | [facility] hospitalIsmael MD, | | | | | [...] [facility] | [address] | [place], [place] | | | UNIV PTH - INTFC | | [address] | | + + + + + [...] | | | LABORATORY | | | GABONESE | | | SERVICES, | | | [...] | + + + + + | [facility] | [address] | [place] [address] | | | SERVICES, CORE | [address] | | | + + + + + documented in this encounter Visit Diagnoses Not on filedocumented in this encounter"
--- OUTSIDE RECORDS SUMMARY | ~2019-06-01 | XMS | Encounter Summary ---
Demographics + + + | Address | [address] | | | [place] [address] | + + + | Home Phone [...] + | Katalina Padilla | ECON | [address] | | | | | [place], [place] | | | | | [address] | | + + + + + | Ellie Vang | ECON | Unknown | | + + + + + Care Team Providers + +------+ + | Care Mulcher Operator Name | Role | Phone | [...] | | 2013 | | Center at [facility] [address] | LEATHER CLEANER [address] | | | | | [address] | [facility] 350 | | | | | Mailcode: Center | [place], [place] | | | | | for Health and | [address] | | | | | [facility] 2 | [phone] | | | | | [place], [place] | | | | | | [address] | | | | | | [phone] | | | +--------+ + + + [...] Rd | | | | | | [place], [place] | | | | | | [address] | | | | | | [phone] | | | | | | | | +--------+ + + + + | 06/24/ | Surgery | Surgery | Chilo, | OPEN VENTRAL HERNIA | | 2019 | | | MD [address] | REPAIR WITH | | | | | [address] | BIOLOGICAL MESH | | | | | [place], [place] | | | | | | [address] | | | | | | [phone] | | | | | | | | +--------+ + + + + | 06/30/ | Office | Cardiology | Randell Franks, | | | 2019 | Visit | | MD [address] | | | | | | [place], [place] | | | | | | [address] | | | | | | [phone] | | | | | | | | +--------+ + + + + documented as of this encounter Visit Diagnoses Not on filedocumented in this encounter"
--- OUTSIDE RECORDS SUMMARY | ~2019-06-01 | XMS | Encounter Summary ---
Demographics + + + | Address | [address] | | | [place] [address] | + + + | Home Phone [...] [place], [place] | | | | | [address] | | + + + + + | Ellie Vang | ECON | Unknown | | + + + + + Care Team Providers + +------+ + | Care Ekg Technician Name | Role | Phone | [...] | [facility] | | | with SECURITY REP | | hypertension | [address] | [address] | | | | | Right | [address] | [address] | | | | | heart | [place], [place] | Mailcode: | | | | | failure | [address] | Center for | | | | | ([facility]) Type | Phone: | Health and | | | | | 2 diabetes | [phone] | Healing, | | | | | mellitus | Fax: | Building [address] | | | | | without | [phone] | [place], [place] | | | | | complication | | [address] | | | | | , with | | Phone: | | | | | long-term | | | | | | | current use | | Fax: | | | | | of insulin | | [phone] | | | | | ([facility]) | | | | | | [...] | 2018 | Visit | Center at [facility] [address] | [address] | BMI of 70 and over, | | | | [address] | [place], [place] | adult ([facility]) (Primary | | | | Mailcode: Center | [address] | Dx); Diabetes | | | | for [place]op and | [phone] | mellitus type 2 | | | | [facility], [address] | | without retinopathy | | | | [place], [place] | | ([facility]); | | | | [address] | | Intertriginous | | | | [phone] | | candidiasis; PCOS | | | | | | (polycystic ovarian | | | | | | syndrome); AMARA | | | | | | treated with BiPAP; | | | | | | Chronic diastolic | | | | | | heart failure ([facility]); | | | | | | [...] 10/30/2017 10:00 AM PDTPlease visit with our [facility] Sheet Metal Worker (RD) for instructions about your Bariatric diet, assistance with calorie c ounts, tips and tricks for working with your diet restrictions, and recipes after bariatric surgery. Daily yogurt; even just 1 tablespoon twice a day will provide enough probiotics to optimize digestion. Try to use a high-quality, probiotic-dense yogurt (eg Zaria's, Kobifield, Stacie lala Kefir, Cover Stitch Machine Operator Duke's Afghan Yogurt). Remember to chew your food well, [...] to the healing stomach. There are also mcc complications of poor wound healing and gastric [...] Andie Brian Incisional hernia repair 03/01/2015 [facility]/ Dr. Cantu. Primary fascial closure and scar [...] 1 tablet by mouth once daily CALCIUM CRB&UIN-F6-CVT56-GENIS ORAL Take 2 tablets by mouth two [...] History Narrative Updated 11/09/15 She lives in [place] with her mother and her sister (also her caregiver) lives in an artment/duplex below. She has 2 grandchildren (age 4 and 7) who live with her daughter and son-in-law Her boyfriend lives in [place] HFpEF, DM2, HTN, Sleep Apnea (unable to [...] program here and refer her to our sales and training specialist who also has expertise in physical [...] a 4-5% rate of reoperation over the long goods drier (i.e. years), as well as other late [...] and may approach 5%. We reviewed the [facility] consent form. We discussed that we did [...] Rd | | | | | | [place], [place] | | | | | | [address] | | | | | | [phone] | | | | | | | | +--------+ + + + + | 06/24/ | Surgery | Surgery | Chilo, | OPEN VENTRAL HERNIA | | 2018 | | | MD Jorje [address] | REPAIR WITH | | | | | [address] | BIOLOGICAL MESH | | | | | [place], [place] | | | | | | [address] | | | | | | [phone] | | | | | | | | +--------+ + + + + | 06/30/ | Office | Cardiology | Randell Franks, | | | 2019 | Visit | | [address] | | | | | | [place], [place] | | | | | | [address] | | | | | | [phone] | | | | | | | [...] | | | | | over, adult ([facility]) | | | | | | 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| | 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 ([facility]) | | | | | | AMARA treated with | | | | | | BiPAP Chronic | | | | | | diastolic heart | | | | | | failure ([facility]) | | | | | | [...] | | | | | determined by [facility] | | | | | | Laboratories. See | | | | | | Compliance Statement B: | | | | | | Definigen/CSPerformed | | | | | | by e27,500 | | | | | | [facility],[place] | | | | | | [address] | | | | | | [phone]. | | | | | | Ismael [...] [facility] | [address] | [place], [place] | | | UNIV PTH - INTFC | | [address] | | + + + + + [...] | | | LABORATORY | | | CYPRIOT | | | SERVICES, | | | [...] the MDRD equation recommended by the | [facility] | | National Kidney Disease Education Program. [...] + + + + + | [facility] | [address] [facility] | [place] [address] | | | SERVICES, CORE | PARK [...] NKECHI ROBERTS | [address] | [place] [address] | | | SERVICES, CORE | PARK [...] + + + + + | [facility] | [address] | [place] [address] | | | SERVICES, CORE | CLARENCE [...] | [facility] | [address] [facility] | [place] [address] | | | SERVICES, CORE | PARK [...] [facility] | [address] | [place] [address] | | | SERVICES, CORE | PARK [...] + + + + + | [facility] | [address] | [place] [address] | | | SERVICES, LYDIA | CLARENCE [...]
--- OUTSIDE RECORDS SUMMARY | ~2019-06-01 | XMS | Encounter Summary ---
Demographics + + + | Address | [address] | | | [place] [address] | + + + | Home Phone [...] + | Katalina Padilla | ECON | [address] | | | | | [place], [place] | | | | | [address] | | + + + + + | Ellie Vang | ECON | Unknown | | + + + + + Care Team Providers + +------+ + | Care Diet Technician Registered Name | Role | Phone | + +------+ + | Fadi Goodrich DO | PCP | | + +------+ + Encounter Details +--------+ + + + + | Date | Type | Department | Care Team | Description | +--------+ + + + + | 10/27/ | Telephone | Pain Center at [facility] | Leslie Mistry, | | | 2017 | | Floor [address] | PhD [address] [facility] | | | | | [address] Mailcode: | [address] | | | | | [address] [place], [place] | | | | | Health and Healing, | [address] | | | | | [facility] | [phone] | | | | | Floor [place], [place] | | | | | | [address] | | | | | | [phone] | | | +--------+ + + + [...] Rd | | | | | | [place], [place] | | | | | | [address] | | | | | | [phone] | | | | | | | | +--------+ + + + + | 06/24/ | Surgery | Surgery | Chilo, | OPEN VENTRAL HERNIA | | 2018 | | | MD Jorje [address] | REPAIR WITH | | | | | [address] | BIOLOGICAL MESH | | | | | [place], [place] | | | | | | [address] | | | | | | [phone] | | | | | | | | +--------+ + + + + | 06/30/ | Office | Cardiology | Randell Franks, | | | 2018 | Visit | | [address] | | | | | | Ave [place], [place] | | | | | | [address] | | | | | | [phone] | | | | | | | | +--------+ + + + + documented as of this encounter Visit Diagnoses Not on filedocumented in this encounter"
--- OUTSIDE RECORDS SUMMARY | ~2019-06-01 | XMS | Encounter Summary ---
Demographics + + + | Address | [address] | | | [place] [address] | + + + | Home Phone [...] + | Katalina Padilla | ECON | [address] | | | | | [place], [place] | | | | | [address] | | + + + + + | Ellie Vang | ECON | Unknown | | + + + + + Care Team Providers + +------+ + | Care Service Writer Advisor Name | Role | Phone | + [...] Mailcode:OP14B | | | | | | [facility] | | | | | | [place], [place] | | | | | | [address] | | | | | | [phone] | | | +--------+ + + + [...] [place] | | | | | | [address] | | | | | | [phone] | | | | | | | | +--------+ + + + + | 06/24/ | Surgery | Surgery | Chilo | OPEN VENTRAL HERNIA | | 2018 | | | MD [address] | REPAIR WITH | | | | | [address] | BIOLOGICAL MESH | | | | | [place], [place] | | | | | | [address] | | | | | | [phone] | | | | | | | | +--------+ + + + + | 06/30/ | Office | Cardiology | Randell Franks, | | | 2019 | Visit | | [address] | | | | | | [place], [place] | | | | | | [address] | | | | | | [phone] | | | | | | | [...] in | | | | | | [place]. | | | | | | | | | | | | Julia Blackman at [facility]. | | | | | | [...] | | | | artery. A 4.1 Ukrainian | | | | | | catheter was navigated | | | | | | over0.035" Donal coated | | | | | | Vaunteson guide wire into | | | | [...] | | + +---------+ + + | [facility] DEPARTMENT OF | | | | | RADIOLOGY | | | | + +---------+ + + documented in this encounter Visit Diagnoses Not on filedocumented in this encounter
--- OUTSIDE RECORDS SUMMARY | ~2019-06-01 | XMS | Encounter Summary ---
Demographics + + + | Address | [address] | | | [place] [address] | + + + | Home Phone [...] + | Katalina Padilla | ECON | [address] | | | | | [place], [place] | | | | | [address] | | + + + + + | Ellie Vang | ECON | Unknown | | + + + + + Care Team Providers + +------+ + | Care Extension Worker Name | Role | Phone | + +------+ + | Kenyatta Cardenas MD | PCP | | + +------+ + Encounter Details +--------+ + + + + | Date | Type | Department | Care Team | Description | +--------+ + + + + | 03/22/ | Hospital | Radiology/Imaging | Keren Allen, | | | 2019 | Encounter | Lab at [facility] [address] | [address] | | | | | [address] Mailcode: | [place], [place] | | | | | [facility] | [address] | | | | | Health and Healing, | [phone] | | | | | [address] | | | | | | Floor [facility] [place] | | | | | | [address] | | | | | | [phone] | | | +--------+ + + + [...] | | 0 | | | | CRB&HSE-Y5-[id number]-GEN | mouth two times | | | [...] Rd | | | | | | [place], [place] | | | | | | [address] | | | | | | [phone] | | | | | | | | +--------+ + + + + | 06/24/ | Surgery | Surgery | Chilo, | OPEN VENTRAL HERNIA | | 2018 | | | MD Jorje [address] | REPAIR WITH | | | | | [address] | BIOLOGICAL MESH | | | | | [place], [place] | | | | | | [address] | | | | | | [phone] | | | | | | | | +--------+ + + + + | 06/30/ | Office | Cardiology | Randell Franks, | | | 2018 | Visit | | MD [address] | | | | | | [address] [place], [place] | | | | | | [address] | | | | | | [phone] | | | | | | | [...]
--- OUTSIDE RECORDS SUMMARY | ~2019-06-01 | XMS | Encounter Summary ---
Demographics + + + | Address | [address] | | | [place] [address] | + + + | Home Phone [...] + | Katalina Padilla | ECON | [address] | | | | | [place], [place] | | | | | [address] | | + + + + + | Ellie Vang | ECON | Unknown | | + + + + + Care Team Providers + +------+ + | Care Monorail Car Operator Name | Role | Phone | [...] + + | 11/05/ | Hospital | [facility] [address]C [address] | Joseph An | | | 2016 - | Encounter | [address] | MD Birgit [address] [facility] | | | | | 14C [facility] | [address] | | | 11/20/ | | [place], [place] | [place], [place] | | | 2016 | | [address] | [address] | | | | | [phone] | [phone] | | | | | | | | | | | | Ana, | | | | | | MD Briana [address] | | | | | | [address] | | | | | | Rd [place], [place] | | | | | | [address] | | | | | | [phone] | | | | | | | | | | | | Carmelina Tucker, | | | | | | JEFFREY-Aimee [address] | | | | | | [address] | | | | | | [place], [place] | | | | | | [address] | | | | | | [phone] | | | | | | | | | | | | Charley Lacey MD | | | | | | Jose Scott MD | | | | | | [address] | | | | | | [address] | | | | | | [place], [place] | | | | | | [address] | | | | | | [phone] | | | | | | | | | | | | Mannie Larkin MD | | | | | | [address] | | | | | | [address] [place], | | | | | | [place] [address] | | | | | | [phone] | | | | | | | | | | | | Tyrone Adrian MD | | | | | | [address] | | | | | | [address] [place], | | | | | | [place] [address] | | | | | | [phone] | | | | | | | [...] did want her to follow up with thread separator in [place]. She should continue working towards bariatric surgery wh ich will ultimately put less stress on her heart. -Continue torsemide 80mg BID -Increase potassium supplementation to KCl 40mg BID -Daily weights and strict 2g Na 2L fluid restricted diet -Close followup with Dr. Goodrich (appt on 11/25 at 11AM) -Needs followup with cardiology in [place] #Left lower extremity DVT #Presumed PE Asymmetric left lower extremity pain and swelling was suspicious for DVT and confirmed with duplex ultrasound. Did not pursue CTA as it was decided that it would not bladder changer . Started anticoagulation bridge with heparin [...] mouth once daily. , Historical Med CALCIUM [id number] ORAL Take 2 tablets by mouth two [...] Cyndi Meier Cardiology [facility]est[facility] Failure at [facility] Cardiology Additional Instructions/Orders: Diet Diabetic (Consistent Carbohydrate) [...] Good Yosef Segovia MD PGY-1 Internal Medicine [id number] INPATIENT FACULTY PROGRESS NOTE - GM 1 [...] (HCC) 15) Candidal intertrigo Tyrone Adrian MD [facility] 14C lumber material handler Division of Hospital Medicine Department of Medicine [address] [place] [address] [facility] DEPARTMENT: Hosp- [id number] Place of Service: Date of Service: 11/21/2015 CSN: [id number] Modifiers:GC Resident Involved: Yes Suggested CPT: 79108 Discharge Management < 30 minute documented in this encou nter Medications at Time of Discharge + + + +---------+--------+ + | Medication | Sig | Dispensed | Refills | Start | End Date | | | | | | Date | | + + + +---------+--------+ + | CALCIUM | Take 2 tablets by | | 0 | | | | [id number]-GEN | mouth two times | | | [...] agree with the Dr Renee Segovia & student Dara' documentation, except as noted [...] (HCC) 15) Candidal intertrigo Tyrone Adrian MD [facility] 14C lumber material handler Division of Hospital Medicine Department of Medicine Formerly [facility] & [address] [place] [address] [facility] DEPARTMENT: Hosp- [id number] Place of Service: [facility] Date of Service: 11/20/2015 CSN: [id number] Modifiers:GC Resident Involved: Yes Suggested CPT: 00829 Subsequent Visit Exp Prob Foc/Mod Complexity 25 min Colleen Tello - 016 6:49 AM PDT PHYSICIAN SUPERVISOR [employer]ODU[employer] STUDENT PROGRESS NOTE FOR EDUCATIONAL PURPOSES ONLY INPATIENT PROGRESS NOTE PATIENT INFORMATION Patient Name: Elzbieta Cristina Date of : 1975 Date of Admission: 11/06/2015 PCP: Fadi Goodrich DO Room/Bed: 14//08/08 Attending Provider: Tyrone Adrian MD Encounter Information [...] of ovarian cysts or menses related. Contact WOODWORK SALVAGE INSPECTOR if TV-US i s ordered. - TV-US [...] - topiramate 200mg po bid JEFFREY Gee-S2 [facility] PA Student Feeding: <2L fluid, Diabetic diet, >2g na Analgesia: APAP, gabapentin, hydrocodone Thromboembolic prophylaxis: Heparin/warfarin Glycemic control: moderate ISS Mobility: Encourage walking and movement Discharge: Expect hospital stay another 2-3 days with PCP FU (Dr. Goodrich) on Saturday 11/25 @ 1 1 am. - Referral to Backend Java Developer Code status: FULL Associated attestation - Juliette Yosef Pryor - 11/20/2015 7:50 PM PDTI have read the [facility] t note by PA student Dara and [...] PCP Yosef Segovia MD PGY-1 Internal Medicine [id number] Tyrone Adrian MD - 11/19/2015 11:51 AM [...] agree with the Dr Renee Segovia & student Cristal's documentation, except as noted or expanded upon [...] if the PO works) Tyrone Adrian MD [facility] 14C lumber material handler Division of Hospital Medicine Department of Medicine Formerly [facility] & [address] [place] [address] [facility] DEPARTMENT: Hosp- [id number] Place of Service: Date of Service: 11/19/2015 CSN: [id number] Modifiers:GC Resident Involved: Yes Suggested CPT: 51129 Subsequent Visit Exp Prob Foc/Mod Complexity 25 min olleen Diamond - 016 6:24 AM PDT PHYSICIAN SUPERVISOR [employer] STUDENT PROGRESS NOTE FOR EDUCATIONAL PURPOSES ONLY [...] of ovarian cysts or menses related. Contact WOODWORK SALVAGE INSPECTOR if TV-US i s ordered. - TV-US [...] - topiramate 200mg po bid JEFFREY Gee-S2 [facility] PA Student Feeding: <2L fluid, Diabetic diet, [...] read the excellen t note by PA student Dara and [...] can. Yosef Segovia MD PGY-1 Internal Medicine [id number] Tyrone Adrian MD - 11/18/2015 2:01 PM PDTINPATIENT FACULTY PROGRESS NOTE - GM 1 Author; Tyrone Adrian MD Attending Physician: Tyrone Adrian MD Hospital Day: 12 PCP: Fadi Goodrich DO PCP PCP Patient's Name: Elzbieta Cristina Today's Date: 11/18/2015 I personally interviewed the patient, performed the ed la cruz elements of the physical examinatio [...] (HCC) 15) Candidal intertrigo Tyrone Adrian MD [facility] 14C lumber material handler Division of Hospital Medicine Department of Medicine Formerly [facility] [address] [place] [address] [facility] DEPARTMENT: Hosp- [id number] Place of Service: Date of Service: 11/18/2015 CSN: [id number] Modifiers:GC Resident Involved: Yes Suggested CPT: 98015 Subsequent Visit Exp Prob Foc/Mod Complexity 25 min Yosef Fang T - 11/17 6:42 AM PDT General [...] plan. Yosef Segovia MD PGY-1 Internal Medicine [id number] signed by Yosef Segovia at 11/18/2015 11:52 [...] (HCC) 15) Candidal intertrigo Tyrone Adrian MD [facility] 14C lumber material handler Division of Hospital Medicine Department of Medicine Formerly [facility] [place] [address] [place] [address] [facility] DEPARTMENT: Hosp- [id number] Place of Service: - Date of Service: 11/17/2015 CSN: [id number] Modifiers:GC Resident Involved: Yes Suggested CPT: 96764 Subsequent Visit Exp Prob Foc/Mod Complexity 25 min lowersColleen - 016 6:40 AM PDT PHYSICIAN SUPERVISOR [employer] STUDENT PROGRESS NOTE FOR EDUCATIONAL PURPOSES ONLY [...] Intake/Output Summary (Last 24 hours) at 11/17/15 09 Last data filed at 11/17/15 0900 Gross [...] - topiramate 200mg po bid JEFFREY Gee-S2 [facility] PA Student Feeding: <2L fluid, Diabetic diet, >2g na Analgesia: APAP, gabapentin, hydrocodone Thromboembolic prophylaxis: Heparin/warfarin Glycemic control: moderate ISS Mobility: Encourage walking and movement Discharge: Expect hospital stay another 3-5 days with diuresis until more euvolemic and R h eart cath can be completed. Code status: FULL Associated attestation - Yosef Segovia - 11/17/2015 12:58 PM PDTI have read the licha t note by JEFFREY student Dara and agree with the assessment [...] a day -Continue IV iron 200mg (day 5/) -Will talk to cardiology again once we have established euvolemia. Considering RHC +/- VQ s can Yosef Segovia MD PGY-1 Internal Medicine [id number] Tyrone Adrian MD - 11/16/2015 4:59 PM [...] Dr Renee Hair (almost complete) and student Clowers' documentation, except as noted or expanded up [...] (HCC) 15) Candidal intertrigo Tyrone Adrian MD [facility] 14C lumber material handler Division of Hospital Medicine Department of Medicine Former[facility] & [address] [place] [address] [facility] DEPARTMENT: Hosp- [id number] Place of Service: Date of Service: 11/16/2015 CSN: [id number] Modifiers:GC Resident Involved: Yes Suggested CPT: 15597 Subsequent Visit Exp Prob Foc/Mod Complexity 25 min olleen Diamond - 016 6:43 AM PDT PHYSICIAN SUPERVISOR [employer] STUDENT PROGRESS NOTE FOR EDUCATIONAL PURPOSES ONLY INPATIENT PROGRESS NOTE PATIENT INFORMATION Patient Name: Elzbitea Cristina Date of : 1975 Date of Admission: 11/06/2015 PCP: Fadi Goodrich DO Room/Bed: 14/// Attending Provider: Tyrone Adrian MD Encounter Information [...] of VTE, could also represent treatment failure, t larry at this point and without signs of [...] of AMARA induced pulmonary HTN. Car diology postulated a more likely alternative explanation of [...] - topiramate 200mg po bid JEFFREY Gee-S2 [facility] PA Student Feeding: <2L fluid, Diabetic diet, [...] assistance of Grisel Pearl. Patient lives i [facility] which is quite a distance to travel to and from [place]. We would ideally arran ge cardiac follow [...] (HCC) 15) Candidal intertrigo Tyrone Adrian MD [facility] 14C lumber material handler Division of Hospital Medicine Department of Medicine Former[facility] [address] [place] [address] [facility] DEPARTMENT: Hosp- [id number] Place of Service: [facility] [id number] Date of Service: 11/15/2015 CSN: [id number] Modifiers:GC Resident Involved: Yes Suggested CPT: 48954 Subsequent Visit Detailed/High complexity 35 min lColleen goff - 016 6:33 AM PDT PHYSICIAN SUPERVISOR [employer] STUDENT PROGRESS NOTE FOR EDUCATIONAL PURPOSES ONLY INPATIENT PROGRESS NOTE PATIENT INFORMATION Patient Name: Elzbieta Cristina Date of : 1975 Date of Admission: 11/06/2015 PCP: Fadi Goodrich DO Room/Bed: [facility]/08/08 Attending Provider: Tyrone Adrian MD Encounter Information [...] last 8 days Intake 9571.5 ml Output 97500 ml Net since Admission -26323.5 ml -25.938 L = 57.0636 lbs Constitutional: [...] - topiramate 200mg po bid JEFFREY Gee-S2 [facility] PA Student Feeding: <2L fluid, Diabetic diet, >2g na Analgesia: APAP, gabapentin, hydrocodone Thromboembolic prophylaxis: Heparin/warfarin Glycemic control: moderate ISS Mobility: Encourage walking and movement Discharge: Expect hospital stay another 3-5 days with diuresis until more euvolemic and R h eart cath can be completed. Code status: FULL Associated attestation - [place], Yosef Pryor - 11/15/2015 2:59 PM PDTI [facility] student Dara and [...] can Yosef Segovia MD PGY-1 Internal Medicine [id number] Tyrone Adrian MD - 11/14/2015 4:16 PM [...] (HCC) 15) Candidal intertrigo Tyrone Adrian MD [facility] 14C lumber material handler Division of Hospital Medicine Department of Medicine [address] [place] [address] [facility] DEPARTMENT: Hosp- [id number] Place of Service: Date of Service: 11/14/2015 CSN: [id number] Modifiers:GC Resident Involved: Yes Suggested CPT: 37771 Subsequent Visit Exp Prob Foc/Mod Complexity 25 min olleen Diamond - 016 6:42 AM PDT PHYSICIAN SUPERVISOR [employer] STUDENT PROGRESS NOTE FOR EDUCATIONAL PURPOSES ONLY [...] morbidly obese woman with DM2 and untreated AAMRA who present ed with severe YO, 100 [...] PT. Her sister is her nielsi scooter. - Monitor strict I&O - Monitor [...] - topiramate 200mg po bid JEFFREY Gee-S2 [facility] PA Student Feeding: <2L fluid, Diabetic diet, [...] outpatient Yosef Segovia MD PGY-1 Internal Medicine [id number] Tyrone Adrian MD - 11/13/2015 4:06 PM [...] (HCC) 15) Candidal intertrigo Tyrone Adrian MD [facility] 14C lumber material handler Division of Hospital Medicine Department of Medicine Formerly [facility] [place] [address] [place] [address] [facility] DEPARTMENT: Hosp- [id number] Place of Service: [facility] Date of Service: 11/13/2015 CSN: [id number] Modifiers:GC Resident Involved: Yes Suggested CPT: 97967 Subsequent Visit Detailed/High complexity 35 min lfelixsColleen - 016 6:36 AM PDT PHYSICIAN SUPERVISOR [employer] STUDENT PROGRESS NOTE FOR EDUCATIONAL PURPOSES ONLY [...] - topiramate 200mg po bid JEFFREY Gee-S2 [facility] PA Student Feeding: <2L fluid, Diabetic diet, >2g na Analgesia: APAP, gabapentin, hydrocodone Thromboembolic prophylaxis: Heparin/warfarin Glycemic control: moderate ISS Mobility: Encourage walking and movement Discharge: Expect hospital stay another 5-7 days with diuresis until more euvolemic and R h eart cath can be completed. Code status: FULL Associated attestation - Yosef Segovia - 11/13/2015 3:14 PM PDTI have read the licha t note by PA student Dara and [...] VTE. Yosef Segovia MD PGY-1 Internal Medicine [id number] Tyrone Adrian MD - 11/12/2015 1:59 PM [...] obesity. 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, J INTEGRATED MARKETING INTERN, at this point not definitive Plan: continue [...] ongoing 12) Candidal intertrigo Tyrone Adrian MD [facility] 14C lumber material handler Division of Hospital Medicine Department of Medicine [facility] [address] [place] [address] [facility] DEPARTMENT: Hosp- [id number] Place of Service: - Date of Service: 11/12/2015 CSN: [id number] Modifiers:GC Resident Involved: Yes Suggested CPT: 61409 Subsequent Visit Detailed/High complexity 35 min lColleen goff - 016 6:31 AM PDT PHYSICIAN SUPERVISOR [employer] STUDENT PROGRESS NOTE FOR EDUCATIONAL PURPOSES ONLY INPATIENT PROGRESS NOTE PATIENT INFORMATION Patient Name: Elzbieta Cristina Date of : 1975 Date of Admission: 11/06/2015 PCP: Fadi Goodrich DO Room/Bed: [facility]/ Attending Provider: Mannie Larkin MD Encounter Information [...] - topiramate 200mg po bid JEFFREY Gee-S2 [facility] PA Student Feeding: <2L fluid, Diabetic diet, [...] disease. Yosef Segovia MD PGY-1 Internal Medicine [id number] Mannie Larkin MD - 11/11/2015 9:19 PM PDTGENERAL MEDICINE [...] diuresis then RHC Mannie Larkin MD Clinical Non Profit Financial Controller, Internal Medicine Pager [phone] ristalColleen martines - 10/25 6:40 AM PDT PHYSICIAN SUPERVISOR [employer] STUDENT PROGRESS NOTE FOR EDUCATIONAL PURPOSES ONLY INPATIENT PROGRESS NOTE PATIENT INFORMATION Patient Name: Elzbieta Cristina Date of : 1975 Date of Admission: 11/06/2015 PCP: Fadi Goodrich DO Room/Bed: /08/08 Attending Provider: Mannie Larkin MD Encounter Information [...] if long-term prophylaxis is necessary, especially birgit sinclairclifford her stroke hx. Min 3 months. - [...] - topiramate 200mg po bid JEFFREY Gee-S2 [facility] PA Student Feeding: <2L fluid, Diabetic diet, [...] pain Yosef Segovia MD PGY-1 Internal Medicine [id number] Maria Eugenia Leiva RCP - 11/11/2015 6:39 AM PDTOvernight oximetry performed on RA. Oximetry d ownloaded. at Larikn MD - 11/10/2015 4:10 PM PDTGENERAL MEDICINE [...] another 5-7 days Mannie Larkin MD Clinical Non Profit Financial Controller, Internal Medicine Pager [phone] Yosef Fang T - 7:24 AM PDT General Internal Medicine [...] plan. 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 In terms of AMARA - does not tolerate CPAP historically. Likely CPAP will be ve ry important for her going forward. Will try overnight oximetry here to assess severity. Discharge planning:Anticipate several days in house. I spent >35 min of which >50% was spent in counseling and coordination of care. Briana Perez MD [facility] Division of Hospital Medicine Grisel Mcghee NP [...] Decision Maker Primary Surrogate Decision Maker Katalina kim [phone] Advanced Directives Existence of Advanced Directive Reviewed: No- Has Interest (11/09/15 1022) Advanced Directives Reviewed Comments: I gave a copy of advance directives (11/09/15 1022) KRISHNA Huertas NP [facility] [address] [place] [address] lfelixColleen martines - 6:41 AM PDT PHYSICIAN SUPERVISOR [employer] STUDENT PROGRESS NOTE FOR EDUCATIONAL PURPOSES ONLY [...] of acute blood loss and anemia of advertising display rotator ela dz and thalassemia is less likely. [...] AM Yosef Segovia MD PGY-1 Internal Medicine [id number] Briana Perez MD - 11/08/2015 2:01 PM PDTGENERAL MEDICINE ATTENDING PROGRESS NOTE ADMIT DATE: 11/06/2015 6:40 PM -late entry for 11/07 TODAY'S DATE: 11/08/2015 (HOSPITAL DAY 2) I personally interviewed the patient, performed the de la cruz elements of the physical examinatio n, have developed an updated assessment and plan together with the GM resident, Dr. Hair/MS Amadeo Diamond. I agree with the plans as documented. [...] and coordination of care. Briana Perez MD [facility] Division of Hospital Medicine ara Colleen - 11/08/2015 6:26 AM PDT PHYSICIAN SUPERVISOR [employer] STUDENT PROGRESS NOTE FOR EDUCATIONAL PURPOSES ONLY [...] 40 year old morbidly obese female with AMARA who presented wi th severe YO, rapid [...] po bid (topamax, nerve pain) JEFFREY Gee-S2 [facility] PA Student Feeding: <2L fluid, Diabetic diet [...] Hair Md, MSc Internal Medicine PGY2 Pager [phone] Kwadwo Freire - 11/07/2015 2:05 PM PDTTransthoracic [...] plan. Yosef Segovia MD PGY-1 Internal Medicine [id number] lfelixs Colleen - 016 8:43 AM PDT PHYSICIAN SUPERVISOR [employer] STUDENT PROGRESS NOTE FOR EDUCATIONAL PURPOSES ONLY [...] perfusion. - consider US to evaluate liver (OZQV-prd-pojkejkxo fatty liver dz) and look for ascites. [...] armour thyroid 30mg po bid JEFFREY Gee-S2 [facility] PA Student Feeding: <2L fluid, <2g Na Analgesia: APAP, ibuprofen, gabapentin, topamax? Thromboembolic prophylaxis: Heparin/warfarin Glycemic control: moderate ISS Mobility: Encourage walking and movement Code status: documented [facility] Plan of Treatment +--------+ + + + [...] Rd | | | | | | [place], [place] | | | | | | [address] | | | | | | [phone] | | | | | | | | +--------+ + + + + | 06/24/ | Surgery | Surgery | Chilo, | OPEN VENTRAL HERNIA | | 2018 | | | MD Jorje [address] | REPAIR WITH | | | | | [address] | BIOLOGICAL MESH | | | | | [facility] [place] | | | | | | [address] | | | | | | [phone] | | | | | | | | +--------+ + + + + | 06/30/ | Office | Cardiology | Randell Franks, | | | 2018 | Visit | | [address] | | | | | | [place], [place] | | | | | | [address] | | | | | | [phone] | | | | | | | [...] AMES | [address] | [place], [place] | | | L[place]PEZ POINT OF CARE | [facility] | [address] | | | TESTS | | | [...] | + + + + + | [facility] | [address] | [place] [address] | | | SERVICES, CORE | PARK [...] | + + + + + | [facility] | [address] | [place] [address] | | | SERVICES, CORE | LESLY [...] | + + + + + | [facility] | [address] | [place] [address] | | | SERVICES, CORE | PARK [...] [facility] | [address] | [place], [place] | | | JUSTINE DAWN OF CARE | [address] | [address] | | | TESTS | | | [...] [facility] | [address] | [place], [place] | | | JUSTINE DAWN OF CARE | [facility] | [address] | | | TESTS | | | [...] AMES | [address] | [place], [place] | | | JUSTINE DAWN OF CARE | [address] | [address] | | | TESTS | | | [...] [facility] | [address] | [place], [place] | | | L[place]PEZ POINT OF CARE | [address] | [address] | | | TESTS | | | [...] - [facility] | [address] | [place], [place] | | | L[place] POINT OF CARE | [address] | [address] | | | TESTS | | | [...] [facility] | [address] | [place] [address] | | | SERVICES, CORE | PARK [...] | + + + + + | [facility] | [address] | [place] [address] | | | CLAIRE, LYDIA | LESLY BONNER | | | + + + + + MAGNESIUM, PLASMA (11/20/2015 6:00 AM PDT) + +-------+ + + + | Component | Value | Ref Range | Performed | Pathologist | | | | | At | Signature | + +-------+ + + + | MAGNESIUM,P | 2.5 | 1.8 - 2.5 mg/dL | [facility] [...] [facility] | [address] | [place] [address] | | | SERVICES, CORE | PARK [...] the MDRD equation recommended by the | [facility] | | National Kidney Disease Education [...] + + + + + | [facility] | [address] [facility] | [place] [address] | | | LYDIA RANGEL | LESLY [...] [facility] | [address] | [place], [place] | | | L[place] POINT OF CARE | [address] | [address] | | | TESTS | | | [...] AMES | [address] | [place], [place] | | | L[place] POINT OF CARE | [address] | [address] | | | TESTS | | | [...] + + + + + | [facility] | [address] | [place] [address] | | | SERVICES, CORE | LESLY [...] [facility] | [address] | [place] [address] | | | SERVICES, CORE | PARK [...] | + + + + + | [facility] | [address] | [place] [address] | | | CLAIRE, LYDIA | LESLY [...] [facility] | [address] | [place], [place] | | | JUSTINE DAWN [facility] | [address] | [address] | | | TESTS | | | [...] [facility] | [address] | [place], [place] | | | JUSTINE DAWN OF JAKY | [facility] | [address] | | | TESTS | | | [...] AMES | [address] | [place], [place] | | | L[place] POINT OF CARE | [address] | [address] | | | TESTS | | | [...] [facility] | [address] | [place], [place] | | | LÓPEZ [facility] | [address] | [address] | | | TESTS | | | [...] | + + + + + | [facility] [employer] | [address] [facility] | [place] [address] | | | SERVICES, CORE | LESLY [...] [facility] | [address] | [place] [address] | | | SERVICES, CORE | LESLY [...] | | | POC | | | [place]INT | | [...] [facility] | [address] | [place], [place] | | | L[place]PEZ POINT OF CARE | [address] | [address] | | | TESTS | | | [...] AMES | [address] | [place], [place] | | | L[place]PEZ POINT OF CARE | [address] | [address] | | | TESTS | | | [...] | + + + + + | [facility] | [address] | [place] [address] | | | SERVICES, LYDIA | LESLY [...] + + + + + | [facility] | [address] | [place] [place] [address] | | | LYDIA RANGEL | LESLY [...] [facility] | [address] | [place] [address] | | | SERVICES, CORE | PARK [...] | + + + + + | [facility] | [address] [facility] | [place] [address] | | | SERVICES, CORE | PARK [...] [facility] | [address] | [place], [place] | | | JUSTINE DAWN OF JAKY | [facility] [place] | [address] | | | TESTS | | | [...] (H) | 60 - 99 mg/dL | [facility] - | | | GLUCOSE, | [...] [facility] | [address] | [place], [place] | | | [place]INT OF CARE | [address] | [address] | | | TESTS | | | [...] + + | Performing | Address | City/State/[facility] | Phone Number | | Organization | | | | + + + + + | [facility] | [address] | [place], [place] | | | JUSTINE DAWN OF JAK[place] | [address] | [address] | | | TESTS | | | [...] | [facility] | [address] | [place], [place] | | | JUSTINE DAWN OF [facility] | [facility] [place] | [address] | | | TESTS | | | [...] [facility] | [address] | [place] [address] | | | SERVICES, CORE | PARK [...] + + + + + | [facility] | [address] | [place] [address] | | | SERVICES, CORE | PARK [...] | + + + + + | [facility] | [address] | [place] [address] | | | SERVICES, CORE | PARK [...] | + + + + + | [facility] | [address] | [place] [address] | | | SERVICES, CORE | LESLY [...] [facility] | [address] | [place] [address] | | | SERVICES, CORE | PARK [...] | + + + + + | [facility] | [address] | [place] [address] | | | SERVICES, CORE | LESLY [...] [facility] | [address] | [place], [place] | | | [place]INT OF CARE | [address] | [address] | | | TESTS | | | [...] (H) | 60 - 99 mg/dL | [facility] - | | | GLUCOSE, | | [...] [facility] | [address] | [place], [place] | | | JUSTINE DAWN OF CARE | [facility] [place] | [address] | | | TESTS | | | [...] [facility] | [address] | [place], [place] | | | [place]INT OF CARE | [address] | [address] | | | TESTS | | | [...] | + + + + + | [facility] | [address] | [place] [address] | | | SERVICES, CORE | LESLY [...] | [facility] | [address] | [place], [place] | | | [place]INT OF CARE | [address] | [address] | | | TESTS | | | [...] [facility] | [address] | [place] [address] | | | SERVICES, CORE | PARK [...] | + + + + + | [facility] | [address] | [place] [address] | | | SERVICES, CORE | LESLY [...] + + + + + | [facility] | [address] | [place] [address] | | | SERVICES, CORE | PARK [...] | + + + + + | [facility] | [address] | [place] [address] | | | SERVICES, LYDIA | LESLY [...] [facility] | [address] | [place], [place] | | | JUSTINE DAWN OF CARE | [address] | [address] | | | TESTS | | | [...] + + + + + | [facility] | [address] | [place] [address] | | | LYDIA RANGEL | LESLY [...] (H) | 60 - 99 mg/dL | [facility] - | | | GLUCOSE, | [...] [facility] | [address] | [place], [place] | | | [place]INT OF CARE | [address] | [address] | | | TESTS | | | [...] | + + + + + | [facility] | [address] [facility] | [place] [address] | | | SERVICES, CORE | LESLY [...] [facility] | [address] | [place], [place] | | | [place] OF CARE | [address] | [address] | | | TESTS | | | [...] + | [facility] | [address] | [place], [place] | | | [place]INT OF CARE | [address] | [address] | | | TESTS | | | [...] [facility] | [address] | [place] [address] | | | SERVICES, CORE | LESLY [...] + + + + + | [facility] | [address] | [place] [address] | | | SERVICES, CORE | PARK [...] + + + + + | [facility] | [address] | [place] [address] | | | SERVICES, CORE | [address] | | | + + + + + MAGNESIUM, PLASMA (11/15/2015 5:49 AM PDT) + +-------+ + + + | Component | Value | Ref Range | Performed | Pathologist | | | | | At | Signature | + +-------+ + + + | MAGNESIUM,P | 2.2 | 1.8 - 2.5 mg/dL | [facility] | | | [facility]MA | | | [...] | + + + + + | [facility] | [address] | [place] [address] | | | SERVICES, CORE | LESLY [...] + + + + + | [facility] | [address] | [place] [address] | | | SERVICES, CORE | LESLY [...] (H) | 60 - 99 mg/dL | [facility] - | | | GLUCOSE, | | [...] [facility] | [address] | [place], [place] | | | [place]INT OF CARE | [address] | [address] | | | TESTS | | | [...] | + + + + + | [facility] | [address] | [place] [address] | | | SERVICES, CORE | LESLY [...] [facility] | [address] | [place], [place] | | | JUSTINE DAWN OF CARE | [facility] [place] | [address] | | | TESTS | | | [...] [facility] | [address] | [place], [place] | | | [place]INT OF CARE | [address] | [address] | | | TESTS | | | [...] | + + + + + | [facility] | [address] | [place] [address] | | | SERVICES, LYDIA | LESLY [...] | [facility] | [address] | [place], [place] | | | JUSTINE DAWN OF CARE | [facility] [place] | [address] | | | TESTS | | | [...] [facility] | [address] | [place] [address] | | | SERVICES, CORE | PARK [...] [facility] | [address] | [place] [address] | | | SERVICES, CORE | PARK [...] | + + + + + | [facility] | [address] [facility] | [place] [address] | | | SERVICES, CORE | LESLY [...] + + + + + | [facility] | [address] | [place] [address] | | | SERVICES, CORE | LESLY [...] + + | Performing | Address | City/State/[facility] | Phone Number | | Organization | | | | + + + + + | [facility] | [address] | [place] | | | JUSTINE DAWN OF [place] | [facility] [place] | [address] | | | TESTS | | | [...] [facility] | [address] | [place] | | | JUSTINE DAWN OF [place] | [facility] [place] | [address] | | | TESTS | | | [...] (H) | 60 - 99 mg/dL | [facility] - | | | GLUCOSE, | [...] [facility] | [address] | [place], [place] | | | [place]INT OF CARE | [address] | [address] | | | TESTS | | | [...] (H) | 60 - 99 mg/dL | [facility] - | [...] + + | Performing | Address | City/State/[facility] | Phone Number | | Organization | | | | + + + + + | [facility] | [address] | [place], [place] | | | JUSTINE DAWN OF [place] | [facility] [place] | [address] | | | TESTS | | | [...] [facility] | [address] | [place] [address] | | | SERVICES, CORE | PARK [...] [facility] | [address] | [place] [address] | | | SERVICES, CORE | PARK [...] | + + + + + | [facility] | [address] | [place] [address] | | | SERVICES, CORE | PARK [...] | + + + + + | [facility] | [address] | [place] [address] | | | SERVICES, CORE | [address] | | | + + + + + MAGNESIUM, PLASMA (11/13/2015 5:44 AM PDT) + +-------+ + + + | Component | Value | Ref Range | Performed | Pathologist | | | | | At | Signature | + +-------+ + + + | MAGNESIUM,P | 2.3 | 1.8 - 2.5 mg/dL | [facility] | | | LASMA | | | [...] [facility] | [address] | [place] [address] | | | SERVICES, CORE | PARK [...] | + + + + + | [facility] | [address] [facility] | [place] [address] | | | CLAIRE, LYDIA | LESLY [...] [facility] | [address] | [place] [address] | | | LYDIA RANGEL | LESLY [...] + + + + + | [facility] | [address] | [place] [address] | | | SERVICES, LYDIA | LESLY [...] [facility] | [address] | [place] | | | JUSTINE DAWN OF CARE | [facility] [place] | [address] | | | TESTS | | | [...] (H) | 60 - 99 mg/dL | [facility] - | | | GLUCOSE, | [...] [facility] | [address] | [place] | | | [place]INT OF CARE | [address] | [address] | | | TESTS | | | [...] [facility] | [address] | [place], [place] | | | JUSTINE DAWN OF [place] | [facility] [place] | [address] | | | TESTS | | | | + + + + + CAPILLARY BLOOD GLUCOSE (NO CHG), POC (11/12/2015 8:39 AM PDT) + +---------+ + [...] [facility] | [address] | [place], [place] | | | [place]INT OF CARE | [address] | [address] | | | TESTS | | | [...] [facility] | [address] | [place] [address] | | | SERVICES, CORE | PARK [...] [facility] | [address] | [place] [address] | | | SERVICES, CORE | PARK [...] 2.5 mg/dL | [facility] | | | [facility] | | | LABORAT[facility] | | | [...] | + + + + + | [facility] | [address] | [place] [address] | | | SERVICES, CORE | LESLY [...] + + + + + | [facility] | [address] | [place] [address] | | | SERVICES, CORE | LESLY [...] [facility] | [address] | [place], [place] | | | JUSTINE DAWN OF [place] | [facility] [place] | [address] | | | TESTS | | | [...] + + + + + | [facility] | [address] [facility] | [place] [address] | | | CLAIRE, LYDIA | [address] | | | + + + + + UAMADAY ONLY (11/11/2015 8:17 PM PDT) + + [...] | 1.014 | 1.005 - 1.030 | [facility] | | | GRAVITY | | | [...] + + + + + | [facility] | [address] | [place] [address] | | | SERVICES, CORE | PARK [...] [facility] | [address] | [place] [address] | | | SERVICES, CORE | PARK [...] Culture Screen Negative. Culture not indicated. | [facility] | | | LABORATORY | | | LYDIA RANGEL | + + + + + + + + | Performing | Address | City/State/Zipcode | Phone Number | | Organization | | | | + + + + + | [facility] | [address] | [place] [address] | | | LYDIA RANGEL | LESLY [...] [facility] | [address] | [place] | | | JUSTINE DAWN OF [place] | [facility] [place] | [address] | | | TESTS | | | [...] (H) | 60 - 99 mg/dL | [facility] - | | | GLUCOSE, | [...] [facility] | [address] | [place], [place] | | | JUSTINE DAWN OF [facility] | [address] | [address] | | | TESTS | | | [...] | + + + + + | [facility] | [address] [facility] | [place] [address] | | | SERVICES, LYDIA | LESLY [...] [facility] | [address] | [place], [place] | | | [place]INT OF CARE | [address] | [address] | | | TESTS | | | [...] [facility] | [address] | [place] [address] | | | SERVICES, CORE | LESLY [...] + + + + + | [facility] | [address] | [place] [address] | | | SERVICES, CORE | [address] | | | + + + + + MAGNESIUM, PLASMA (11/11/2015 4:39 AM PDT) + +-------+ + + + | Component | Value | Ref Range | Performed | Pathologist | | | | | At | Signature | + +-------+ + + + | MAGNESIUM,P | 2.3 | 1.8 - 2.5 mg/dL | [facility] | | | [facility] | | | LABORATORY | | | | | | CALIRE, | | | | | | CORE | | + +-------+ + + + + + | Specimen | + + | Blood - Blood | | (substance) | + + + + + + + | Performing | Address | City/State/Zipcode | Phone Number | | Organization | | | | + + + + + | [facility] | [address] | [place] [address] | | | SERVICES, CORE | LESLY [...] + + + + + | [facility] | [address] | [place] [address] | | | SERVICES, CORE | LESLY [...] (H) | 60 - 99 mg/dL | [facility] - | | | GLUCOSE, | [...] [facility] | [address] | [place], [place] | | | [place]INT OF CARE | [address] | [address] | | | TESTS | | | [...] | + + + + + | [facility] | [address] | [place] [address] | | | LYDIA RANGEL | LESLY [...] | [facility] | [address] | [place], [place] | | | [place]INT OF CARE | [address] | [address] | | | TESTS | | | [...] [facility] | [address] | [place], [place] | | | [place]INT OF CARE | [address] | [address] | | | TESTS | | | [...] | + + + + + | [facility] | [address] | [place] [address] | | | LYDIA RANGEL | LESLY [...] [facility] | [address] | [place], [place] | | | [place]INT OF CARE | [address] | [address] | | | TESTS | | | [...] [facility] | [address] | [place] [address] | | | SERVICES, CORE | PARK [...] [facility] | [address] | [place] [address] | | | SERVICES, CORE | LESLY [...] | + + + + + | [facility] | [address] | [place] [address] | | | SERVICES, CORE | LESLY [...] [facility] | [address] | [place] [address] | | | SERVICES, CORE | PARK [...] + + + + + | [facility] | [address] | [place] [address] | | | SERVICES, CORE | LESLY [...] and | 50 - 200 ng/mL | [facility] | | | | Female >18 years: [...] | + + + + + | [facility] | [address] | [place] [address] | | | LYDIA RANGEL | LESLY [...] | | | POC | | | [place] | | [...] [facility] | [address] | [place] | | | JUSTINE DAWN OF CARE | [address] | [address] | | | TESTS | | | [...] [facility] | [address] | [place], [place] | | | [place] POINT OF CARE | [address] | [address] | | | TESTS | | | | + + + + + X-RAY PORTABLE CHEST PICC LINE CHECK (11/09/2015 3:12 PM PDT) + + + + + + | Component | Value | Ref Range | Performed | Pathologist | | | | | At | Signature | + + + + + + | XRAY | EXAM: OK CHEST PICC LINE | | | | [...] | | | | | | MD Luba PRESCOTT | | | | | | personally [...] | | | | | signed / TONY Shine | | | | [...] | | + +---------+ + + | [facility] DEPARTMENT OF | | | | | RADIOLOGY | | | | + +---------+ + + PROCEDURE KARRIE (11/09/2015 3:03 PM PDT) + + + [...] and meds | | | Procedure location: Unit:[facility] Room: 13 Providers: PICC Nurse | [...] | pause verifies correct patient, procedure, equipment, residential direct support professional | | | and site/side marked as [...] | area Cephalic vein. Catheter lot number: [id number] with a length of | | | [...] | [facility] | [address] | [place], [place] | | | JUSTINE DAWN OF CARE | [address] | [address] | | | TESTS | | | [...] [facility] | [address] | [place] [address] | | | SERVICES, CORE | PARK [...] - [facility] | [address] | [place] | | | [place]INT OF CARE | [address] | [address] | | | TESTS | | | [...] | + + + + + | [facility] | [address] | [place] [address] | | | SERVICES, CORE | PARK [...] | + + + + + | [facility] | [address] | [place] [address] | | | SERVICES, CORE | PARK [...] [facility] | [address] | [place] [address] | | | LYDIA RANGEL | LESLY [...] | + + + + + | [facility] | [address] | [place] [address] | | | SERVICES, CORE | PARK [...] + + | [facility] | [address] | [place], [place] | | | JUSTINE DAWN OF CARE | [address] | [address] | | | TESTS | | | [...] [facility] | [address] | [place], [place] | | | [facility] OF [facility] | [address] | [address] | | | TESTS | | | [...] | + + + + + | [facility] | [address] | [place] [address] | | | SERVICES, CORE | LESLY [...] [facility] | [address] | [place] [address] | | | SERVICES, CORE | PARK [...] + + + + + | [facility] | [address] | [place] [address] | | | SERVICES, CORE | LESLY [...] (H) | 60 - 99 mg/dL | [facility] - | | | GLUCOSE, | [...] [facility] | [address] | [place], [place] | | | [place]INT OF CARE | [address] | [address] | | | TESTS | | | [...] [facility] | [address] | [place], [place] | | | [place] POINT OF CARE | [address] | [address] | | | TESTS | | | [...] (H) | 60 - 99 mg/dL | [facility] - | [...] [facility] | [address] | [place], [place] | | | JUSTINE DAWN OF [place] | [address] | [address] | | | TESTS | | | [...] | + + + + + | [facility] | [address] [facility] | [place] [address] | | | SERVICES, CORE | PARK [...] | + + + + + | [facility] | [address] [facility] | [place] [address] | | | SERVICES, LYDIA | [address] [...] + + + + + | [facility] | [address] [facility] | [place] [address] | | | SERVICES, CORE | PARK [...] [facility] | [address] | [place] [address] | | | LYDIA RANGEL | [address] | | | + [...] | + + + + + | [facility] | [address] | [place] [address] | | | SERVICES, CORE | LESLY [...] [facility] | [address] | [place] [address] | | | SERVICES, CORE | PARK [...] | + + + + + | [facility] | [address] | [place] [address] | | | SERVICES, CORE | LESLY [...] [facility] | [address] | [place], [place] | | | [place] [facility]INT OF CARE | [address] | [address] | | | TESTS | | | [...] + + + + + | [facility] | [address] | [place] [address] | | | SERVICES, CORE | [address]ES[address] [...] (H) | 60 - 99 mg/dL | [facility] - | | | GLUCOSE, | [...] [facility] | [address] | [place], [place] | | | [facility] OF CARE | [address] | [address] | | | TESTS | | | [...] [facility] | [address] | [place], [place] | | | JUSTINE [facility]WN OF CARE | [address] | [address] | | | TESTS | | | | + + + + + TRANSTHORACIC ECHOCARDIOGRAM, ADULT (11/07/2015 1:28 PM PDT) + + + + + + | Component | Value | Ref Range | Performed | Pathologist | | | | | At | Signature | + + + + + + | EJECTION | 60 to 65 | | [facility] | | | FRACTION [...] + + + + + | [facility] | [address] | [place], [place] | | | CARDIOLOGY | [address] | [address] | | + + + + + [...] | | | POC | | | [place] | | [...] [facility] | [address] | [place], [place] | | | [place] [facility] | [address] | [address] | | | TESTS | | | [...] the MDRD equation recommended by the | [facility] | | National Kidney Disease Education Program. [...] + + + + + | [facility] | [address] | [place] [address] | | | CLAIRE, CORE | [address] | | | [...] mech. valves (2.5 - 3.5) INR | CLAIRE CORE | + + + + + + + + | Performing | Address | City/State/Zipcode | Phone Number | | Organization | | | | + + + + + | [facility] | [address] | [place] [address] | | | SERVICES, LYDIA | [address] [...] + + + + + | [facility] | [address] [facility] | [place] [address] | | | SERVICES, CORE | [address]ES[address] [...] | [facility] | [address] | [place], [place] | | | [place] [facility] | [facility] | [address] | | | TESTS | | | [...] [facility] | [address] | [place] [address] | | | SERVICES, CORE | [address]ES[address] [...] + + + + + | [facility] | [address] | [place] [address] | | | SERVICES, CORE | [address] [...] [facility] | [address] | [place] [address] | | | SERVICES, CORE | [address] | | | + + + + + CULTURE, URINE [facility] (11/07/2015 8:21 AM PDT) + + + [...] | + + + + + | [facility] | [address] | [place] [address] | | | SERVICES, CORE | LESLY [...] [facility] | [address] | [place], [place] | | | JUST[facility] | [address] | [address] | | | TESTS | | | [...] | + + + + + | [facility] | [address] | [place] [address] | | | SERVICES, CORE | LESLY [...] | + + + + + | [facility] | [address] | [place] [address] | | | SERVICES, CORE | [address] | | | + + + + + MAGNESIUM, PLASMA (11/07/2015 3:17 AM PDT) + +-------+ + + + | Component | Value | Ref Range | Performed | Pathologist | | | | | At | Signature | + +-------+ + + + | MAGNESIUM,P | 1.9 | 1.8 - 2.5 mg/dL | [facility] | | | [facility] | | | [facility]ORATORY | | | [...] [facility] | [address] | [place] [address] | | | CLAIRE, LYDIA | LESLY [...] | + + + + + | [facility] | [address] | [place] [address] | | | SERVICES, CORE | PARK [...] ED | | | | | | oil field operator at 12:33 AM by | | | | | | , radiology | | | | | | resident. Attending | | | | | | Radiologists: MARSHA | | | | | | JYOTSNA MDAuthor: JOSE | | | | | | [...] | | + +---------+ + + | [facility] DEPARTMENT OF | | | | [...] ONUR | | | | | | FUSS 11/06/2015 15:02 PM | | | | [...] | | POC | | ng/mL | [facility] | | | | | [...] [facility] | [address] | [place], [place] | | | [place] [facility] | [address] | [address] | | | TESTS | | | | + + + + + ED BG-LAC,POC (11/06/2015 2:06 PM PDT) + + + [...] | | POC | | mmol/L | [facility] | | | | | | JUSTINE [...] | | SAMPLE TYPE | | | MARKAMILLA | | | | | | JUSTINE [...] [facility] | [address] | [place], [place] | | | [place] [facility]ARE | [address] | [address] | | | TESTS | | | [...] | + + + + + | [facility] | [address] | [place] [address] | | | SERVICES, CORE | LESLY [...] + + + + | [facility] | 441 | ms | [facility] [...] CHRISTIAN | | | | | | 11-06-2015:39:46 | | | | + + + [...] + | [facility] | [address] | [place], [place] | | | CARDIOLOGY | [address] | [address] | | + + + + + [...] [facility] | [address] | [place] [address] | | | SERVICES, LYDIA | [address] [...] | + + + + + | [facility] | [address] [facility] | [place] [address] | | | SERVICES, CORE | LESLY [...] + + + + + | [facility] | [address] | [place] [address] | | | SERVICES, CORE | PARK [...] | + + + + + | [facility] | [address] | [place] [address] | | | SERVICES, CORE | [address] | | | + + + + + ED INFORMATION EXCHANGE (11/06/2015 1:26 PM PDT) + + + + + + | Component | Value | Ref Range | Performed | Pathologist | | | | | At | Signature | + + + + + + | [facility] | [id number] | | COLLECTIVE | | | | [id number] | | MEDICAL | | | | [...] | ---- 11/06/2015 | | | 13:25 [facility] | | | [id number]. Referral; Cellulitis 09/28/2015 15:39 [facility] | | | Hospital Emergency -Migraine, unspecified, [...] -Pain in left lower leg 09/13/2015 14:54 [facility] | | | Hospital Emergency -Unspecified abdominal [...] | | | | | | -Other long chain quiller tender (current) | | | drug therapy | | | -Allergy status | | | to penicillin ED VISIT COUNT (1 YR.) Visits Location | | | ------ --------- 1 [facility] | | | [place] [facility] 10 | | | Total Note: Visits indicate total known visits. | | | | | | --- | | + + + + + + + + | Performing | Address | City/State/Zipcode | Phone Number | | Organization | | | | + + + + + | [facility] | [address], | [place], [place] | [phone] | | TECHNOLOGIES | [address] | [address] | | + + + + + [...] PDT | | | | | Starting Thu11/19/15 at 1425, | | | | | [...] | | | 50,000 Units, oral, EVERY THU AND | | AM PDT | | [...] | | | | First dose on 11/10/15 at | | | | | | [...] 4:14 | | | | | dose, Fanny 11/08/15 at 1430 | | PM PDT [...] IV 120 mg | New Bag | 11/17/19 | 120 mg | | | | 120 mg, intravenous, TWICE DAILY | | 16 7:56 | | | | | (DIURETIC), First dose (after | | AM PDT | | | | | last modification) on 11/16/15 | | | | | | | [...] | | | | | 1 dose, 4/12/16 at 2230 | | PM PDT | [...] | | | | | | | 11/21/15 at 1949, skin | | | | | | | irritation/breakdown | | | | | | + +-------+ +---+---+---+ +---+---+ | | | +---+---+ + +-------+ +--------+---+---+ | metolazone (ZAROXOLYN) tablet | Given | 11/18/19 | 2.5 mg | | | | 2.5 mg 2.5 mg, oral, ONCE, 1 | | 16 7:51 | | | | | dose, 11/18/15 at 0730 | | AM PDT | | | | + +-------+ +--------+---+---+ +---+---+ | | | +---+---+ + +-------+ +--------+---+---+ | metolazone (ZAROXOLYN) tablet | Given | 11/20/19 | 2.5 mg | | | | 2.5 mg 2.5 mg, oral, DAILY, | | 16 6:37 | | | | | First dose on Thu11/19/15 at | | AM PDT | | [...] | | | | | NEEDED, Starting 11/09/15 at | | PM PDT | | [...] 9:34 | | | | | on Fanny 11/08/15 at 0145, Until | | AM PDT [...] dose on Fanny 11/08/15 at | | PM PDT | [...] | | | oral, ONCE, 1 dose, [facility] 11/08/15 | | PM PDT | [...] | | | First dose on Fanny 4/14/16 at | | AM PDT | | [...] | | | | ONCE, 1 dose, [facility] 11/08/15 at 1900 | | PM [...] | | | | | ONCE, 1 doseLc 11/13/15 at 0845 | | AM PDT [...] | | | | ONCE, 1 dose, 11/07/15 at 1415 | | | | | [...] | | | (DIURETIC), First dose on Sat | | AM [...] | | | | | 1 dose, 11/06/15 at 2115 | | PM PDT [...]
--- OUTSIDE RECORDS SUMMARY | ~2019-06-01 | XMS | Encounter Summary ---
Demographics + + + | Address | [address] | | | [place] [address] | + + + | Home Phone [...] + | Katalina Padilla | ECON | [address] | | | | | [place], [place] | | | | | [address] | | + + + + + | Ellie Vang | ECON | Unknown | | + + + + + Care Team Providers + +------+ + | Care Chimney Builder Helper Name | Role | Phone | + +------+ + | Fadi Goodrich DO | PCP | | + +------+ + Encounter Details +--------+ + + + + | Date | Type | Department | Care Team | Description | +--------+ + + + + | 06/09/ | Abstract | Digestive Health | Kathy Feldman, | | | 2012 | | Center at [facility] [address] | PATIENT SUPPORT REPRESENTATIVE [address] | | | | | [address] | [facility] [address] | | | | | Mailcode: Center | [place], [place] | | | | | [facility] and | [address] | | | | | [facility] 2 | [phone] | | | | | [place], [place] | | | | | | [address] | | | | | | [phone] | | | +--------+ + + + [...] Rd | | | | | | [facility] [place] | | | | | | [address] | | | | | | [phone] | | | | | | | | +--------+ + + + + | 06/24/ | Surgery | Surgery | Chilo, | OPEN VENTRAL HERNIA | | 2018 | | | MD Jorje [address] | REPAIR WITH | | | | | [address] | BIOLOGICAL MESH | | | | | [place], [place] | | | | | | [address] | | | | | | [phone] | | | | | | | | +--------+ + + + + | 06/30/ | Office | Cardiology | Randell Franks, | | | 2018 | Visit | | [address] | | | | | | [place], [place] | | | | | | [address] | | | | | | [phone] | | | | | | | | +--------+ + + + + documented as of this encounter Visit Diagnoses Not on filedocumented in this encounter"
--- OUTSIDE RECORDS SUMMARY | ~2019-06-01 | XMS | Encounter Summary ---
Demographics + + + | Address | [address] | | | [place] [address] | + + + | Home Phone [...] + | Katalina Padilla | ECON | [address] | | | | | [place], [place] | | | | | [address] | | + + + + + | Ellie Vang | ECON | Unknown | | + + + + + Care Team Providers + +------+ + | Care Laser Engraver Name | Role | Phone | + +------+ + | Fadi Goodrich DO | PCP | | + +------+ + Reason for Visit + + + | Reason | Comments | + + + | Bariatric Nutrition | 11/03 and 11/06 phone calls | + + + Encounter Details +--------+ + + + + | Date | Type | Department | Care Team | Description | +--------+ + + + + | 11/15/ | Telephone | Digestive Health | [address] | Bariatric Nutrition | | 2014 | | Center at [facility] [address] | [address] | (11/03 and 11/06 phone | | | | [address] | Lesly Gutiérrez [place], | calls) | | | | Mailcode: [place] | [place] [address] | | | | | for Health and | | | | | | [facility], [facility] 2 | | | | | | [place], [place] | | | | | | [address] | | | | | | [phone] | | | +--------+ + + + [...] Rd | | | | | | [place] | | | | | | [address] | | | | | | [phone] | | | | | | | | +--------+ + + + + | 06/24/ | Surgery | Surgery | Chilo | OPEN VENTRAL HERNIA | | 2019 | | | MD [address] | REPAIR WITH | | | | | [address] | BIOLOGICAL MESH | | | | | [place] | | | | | | [address] | | | | | | [phone] | | | | | | | | +--------+ + + + + | 06/30/ | Office | Cardiology | Randell Franks, | | | 2019 | Visit | | [address] | | | | | | [place], [place] | | | | | | [address] | | | | | | [phone] | | | | | | | | +--------+ + + + + documented as of this encounter Visit Diagnoses Not on filedocumented in this encounter"
--- OUTSIDE RECORDS SUMMARY | ~2019-06-01 | XMS | Encounter Summary ---
Demographics + + + | Address | [address] | | | [place] [address] | + + + | Home Phone [...] + | Katalina Padilla | ECON | [address] | | | | | [place], [place] | | | | | [address] | | + + + + + | Ellie Vang | ECON | Unknown | | + + + + + Care Team Providers + +------+ + | Care Promotions Executive Producer Name | Role | Phone | + [...] | | | | | | | [facility] for | | | | | | | [facility]go and | | | | | | | Healing, | | | | | | | Building [address] | | | | | | | [place], [place] | | | | | | | [address] | | | | | | | Phone: | | | | | | | [phone] | | | | | | | Fax: | | | | | | | [phone] | +--------+--------+ + + + + Encounter [...] | | [address] | Ave [place], [place] | adult (HCC) (Primary | | | | Mailcode: Center | [address] | Dx); Vitamin D | | | | for Health and | | deficiency disease; | | | | Healing, Building [address] | | Intertriginous | | | | [place], [place] | | candidiasis; | | | | [address] | | Diabetes mellitus | | | [...] Psychological Evaluation: If your referral is at [facility], pain management will call irma riggs in [...] the time. If your referral is at [facility], they will call y ou in the next week to schedule. She will arrange 8. Nephrology Consult: Please call [facility] ([phone]) and have them send you a urine specimen container. You will need to discuss your kidney stone risk with a nephrology provid er prior to proceeding with gastric bypass. If your referral is at [facility], they will call you in the next [...] at the same time: betsy Feldman RN, [facility]- Nurse Practitioner for Bariatric Surgery [facility] | [address] | [place], [place] | [address] | Potential Contraindications to Bariatric Surgery Age [...] other providers does not guarantee that the [facility] Bariatric Surger y program will deem you a surgical candidate. documented in this encounter Progress Notes Shereen Pinto ACNP - 06/16/2013 1:28 PM PSTFormatting of this note might be different fro m the original. BARIATRIC INITIAL VISIT Provider: Shereen Pinto DNP, DANIELLEP, ADVERTISING MATERIAL DISTRIBUTOR Referring Provider: Dr. Fadi Goodrich, [place] [phone] Reason for Requested Consultation: Initial evaluation for bariatric surgery. Elzbieta Cristina is interested in Frandy en y alfredo tomeka bypass. The pt is here With her sister. Following surgery her mother and sister will care for her, she will Stay in [place] after surgery so that she is close by. She lives in [place]. They have few stairs to get into [...] recently gained weight, she met with our ribbon hanking machine operator today, she has been making poor food [...] none Use of Redux or Phen/fen: no Druze or cultural reason you would refuse blood [...] as well , hypertension, hyperlipidemia. Denies CHF, [place], ischemic heart disease, DVT/PE, or pulmonary hypertension. [...] the therapy. 8. Nephrology Consult: Please call [facility] ([phone]) and have them send you a urine specimen container. You will need to discuss your kidney stone risk with a nephrology provid er prior to proceeding with gastric bypass. If your referral is at [facility], they will call you in the next week to schedule. You are at increased risk of renal stones after surgery, with your history of stone, we want to check of oxalate in your urine. You will need a referral to a civil engineering drafter If your level is elevated. 9. See [...] soon as possible Shereen Pinto DNP ACNP, ADVERTISING MATERIAL DISTRIBUTOR Nurse Practitioner for Bariatric Surgery [facility] | [address] | [place], [place] | [address] | Potential Contraindications to Bariatric Surgery Age [...] other providers does not guarantee that the [facility] Bariatric Surger y program will deem you [...] Rd | | | | | | [place], [place] | | | | | | [address] | | | | | | [phone] | | | | | | | | +--------+ + + + + | 06/24/ | Surgery | Surgery | Chilo | OPEN VENTRAL HERNIA | | 2018 | | | MD [address] | REPAIR WITH | | | | | [address] | BIOLOGICAL MESH | | | | | [place], [place] | | | | | | [address] | | | | | | [phone] | | | | | | | | +--------+ + + + + | 06/30/ | Office | Cardiology | Randell Franks, | | | 2019 | Visit | | [address] | | | | | | [place], [place] | | | | | | [address] | | | | | | [phone] | | | | | | | [...] at | | | | | | [email or web address] Test | | | | | | developed and | | | | | | characteristics | | | | | | determined by | | | | | | [employer]. See | | | | | | Compliance Statement B: | | | | | | [email or web address] | | | | | | by [facility],[address] | | | | | | Liliana Martinez, [facility],[place] | | | | | | [address] | | | | | | [phone]. | | | | | | com, [...] at | | | | | | [employer] Test | | | | | | developed and | | | | | | characteristics | | | | | | determined by | | | | | | [employer]. See | | | | | | Compliance Statement B: | | | | | | [employer]to[employer]/CS | | | | + + + + + + + + | Specimen | + + | Blood - Blood | + + + + + + + | Performing | Address | City/State/Zipcode | Phone Number | | Organization | | | | + + + + + | [facility] | [address] | [place], [place] | | | [facility] | | [address] | | + + + + + [...]
--- OUTSIDE RECORDS SUMMARY | ~2019-06-01 | XMS | Encounter Summary ---
Demographics + + + | Address | [address] | | | [place] [address] | + + + | Home Phone [...] + | Katalina Padilla | ECON | [address] | | | | | [place], [place] | | | | | [address] | | + + + + + | Ellie Vang | ECON | Unknown | | + + + + + Care Team Providers + +------+ + | Care Rail Car Repairer Name | Role | Phone | + +------+ + | Fadi Goodrich DO | PCP | | + +------+ + Encounter Details +--------+ + + + + | Date | Type | Department | Care Team | Description | +--------+ + + + + | 07/06/ | Abstract | Digestive Health | Shereen Georges, | | | 2012 | | Center at [facility] [address] | ACNP [address] | | | | | [address] | Ave [place], [place] | | | | | Mailcode: [place] | [address] | | | | | for Health and | | | | | | [facility] 2 | | | | | | [facility] [place] | | | | | | [address] | | | | | | | [...] Rd | | | | | | [place], [place] | | | | | | [address] | | | | | | [phone] | | | | | | | | +--------+ + + + + | 06/24/ | Surgery | Surgery | Chilo, | OPEN VENTRAL HERNIA | | 2018 | | | MD Jorje [address] | REPAIR WITH | | | | | [address] | BIOLOGICAL MESH | | | | | [facility] [place] | | | | | | [address] | | | | | | [phone] | | | | | | | | +--------+ + + + + | 06/30/ | Office | Cardiology | Randell Franks, | | | 2018 | Visit | | [address] | | | | | | [place] [facility] [place] | | | | | | [address] | | | | | | [phone] | | | | | | | | +--------+ + + + + documented as of this encounter Visit Diagnoses Not on filedocumented in this encounter"
--- OUTSIDE RECORDS SUMMARY | ~2019-06-01 | XMS | Encounter Summary ---
Demographics + + + | Address | [address] | | | [place] [address] | + + + | Home Phone [...] + | Katalina Padilla | ECON | [address] | | | | | [place], [place] | | | | | [address] | | + + + + + | Ellie Vang | ECON | Unknown | | + + + + + Care Team Providers + +------+ + | Care Director Of Music Name | Role | Phone | + [...] | | | | | | [facility] | | | | | | [place], [place] | | | | | | [address] | | | | | | [phone] | | | +--------+ + + + [...] Rd | | | | | | [facility] [place] | | | | | | [address] | | | | | | [phone] | | | | | | | | +--------+ + + + + | 06/24/ | Surgery | Surgery | Chilo | OPEN VENTRAL HERNIA | | 2018 | | | MD [address] | REPAIR WITH | | | | | [address] | BIOLOGICAL MESH | | | | | [place], [place] | | | | | | [address] | | | | | | [phone] | | | | | | | | +--------+ + + + + | 06/30/ | Office | Cardiology | Randell Franks, | | | 2019 | Visit | | [address] | | | | | | [place], [place] | | | | | | [address] | | | | | | [phone] | | | | | | | [...] [address] | | | | | | [address] | | | | | | | | | | | | [place], [place] | | | | | | [address] | | | | | | | [...] | | | | artery. A 5.5 Faroese | | | | | | Ozzy [...] | | + +---------+ + + | [facility] DEPARTMENT OF | | | | | RADIOLOGY | | | | + +---------+ + + documented in this encounter Visit Diagnoses Not on filedocumented in this encounter
--- OUTSIDE RECORDS SUMMARY | ~2019-06-01 | XMS | Encounter Summary ---
Demographics + + + | Address | [address] | | | [place] [address] | + + + | Home Phone [...] [place], [place] | | | | | [address] | | + + + + + | Ellie Vang | ECON | Unknown | | + + + + + Care Team Providers + +------+ + | Care Shed Hand Name | Role | Phone | + +------+ + | Fadi Goodrich DO | PCP | | + +------+ + Encounter Details +--------+ + + + + | Date | Type | Department | Care Team | Description | +--------+ + + + + | 02/15/ | Abstract | Digestive Health | Hernandez Brian, | | | 2012 | | Center at [facility] [address] | MD [address] | | | | | [address] | [facility] | | | | | Mailcode: Center | [place], [place] | | | | | [facility] and | [address] | | | | | [facility], [facility] 2 | [phone] | | | | | [place], [place] | | | | | | [address] | | | | | | [phone] | | | +--------+ + + + [...] Rd | | | | | | [place], [place] | | | | | | [address] | | | | | | [phone] | | | | | | | | +--------+ + + + + | 06/24/ | Surgery | Surgery | Chilo, | OPEN VENTRAL HERNIA | | 2018 | | | MD Jorje [address] | REPAIR WITH | | | | | [address] | BIOLOGICAL MESH | | | | | [facility] [place] | | | | | | [address] | | | | | | [phone] | | | | | | | | +--------+ + + + + | 06/30/ | Office | Cardiology | Randell Franks, | | | 2018 | Visit | | [address] | | | | | | [place] [facility] [place] | | | | | | [address] | | | | | | [phone] | | | | | | | | +--------+ + + + + documented as of this encounter Visit Diagnoses Not on filedocumented in this encounter"
--- OUTSIDE RECORDS SUMMARY | ~2019-06-01 | XMS | Encounter Summary ---
Demographics + + + | Address | [address] | | | [place] [address] | + + + | Home Phone [...] [place], [place] | | | | | [address] | | + + + + + | Ellie Vang | ECON | Unknown | | + + + + + Care Team Providers + +------+ + | Care Bank Sales And Service Manager Name | Role | Phone | + +------+ + | Fadi Goodrich DO | PCP | | + +------+ + Encounter Details +--------+------+ + + + | Date | Type | Department | Care Team | Description | +--------+------+ + + + | 03/06/ | Lab | Laboratory, | | Type 2 diabetes | | 2013 | | Specimen Collection | | mellitus (HCC); | | | | at [facility] 3rd Floor | | Cholecystitis | | | | [address] | | | | | | [place], | | | | | | [place] [address] | | | | | | [phone] | | | +--------+------+ + + + [...] Rd | | | | | | [place], [place] | | | | | | [address] | | | | | | [phone] | | | | | | | | +--------+ + + + + | 06/24/ | Surgery | Surgery | Chilo, | OPEN VENTRAL HERNIA | | 2018 | | | MD Jorje [address] | REPAIR WITH | | | | | [address] | BIOLOGICAL MESH | | | | | [place], [place] | | | | | | [address] | | | | | | [phone] | | | | | | | | +--------+ + + + + | 06/30/ | Office | Cardiology | Randell Franks, | | | 2018 | Visit | | [address] | | | | | | [address] [place], [place] | | | | | | [address] | | | | | | [phone] | | | | | | | [...] | included in the neutrophil count. | CLAIRE, CORE | + + + + + + + + | Performing | Address | City/State/Zipcode | Phone Number | | Organization | | | | + + + + + | [facility] | [address] [facility] | [place] [address] | | | SERVICES, CORE | CLARENCE [...] + + + + | [facility] | [address] | [place] [address] | | | [facility] | [address] | | | + + + + + HEMOGLOBIN A1C, BLOOD (03/06/2014 1:55 PM PDT) + + + + + + | Component | Value | Ref Range | Performed | Pathologist | | | | | At | Signature | + + + + + + | HEMOGLOBIN | 5.8 (H)Comment: Hbg A1c | <5.7 % | [facility] | | | A1C | Interpretive | [...] [facility]KE[facility]I ROBERTS | [address] | [place] [address] | | | SERVICES, SPECIAL | PARK [...]
--- OUTSIDE RECORDS SUMMARY | ~2019-06-01 | XMS | Encounter Summary ---
Demographics + + + | Address | [address] | | | [place] [address] | + + + | Home Phone [...] [place], [place] | | | | | [address] | | + + + + + | Ellie Vang | ECON | Unknown | | + + + + + Care Team Providers + +------+ + | Care School Supervisor Name | Role | Phone | [...] | gastric bypass; | | | | [place], [place] | | Ventral hernia | | | | [address] | | without obstruction | | | | [phone] | | or gangrene; Mixed | | [...] | | | | | | [facility] [place] | | | | | | [address] | | | | | | [phone] | | | | | | | | +--------+ + + + + | 06/24/ | Surgery | Surgery | Chilo | OPEN VENTRAL HERNIA | | 2018 | | | MD [address] | REPAIR WITH | | | | | [address] | BIOLOGICAL MESH | | | | | [place], [place] | | | | | | [address] | | | | | | [phone] | | | | | | | | +--------+ + + + + | 06/30/ | Office | Cardiology | Randell Franks, | | | 2019 | Visit | | [address] | | | | | | [place], [place] | | | | | | [address] | | | | | | [phone] | | | | | | | [...] | + + + + + | [facility] | [address] | [place] [address] | | | SERVICES, CORE | CLARENCE [...] | + + + + + | [facility] | [address] | [place] [address] | | | LYDIA RANGEL | CLARENCE [...] (H)Comment: Hgb A1C | <5.7 % | [facility] | | | A1C | Interpretive | [...] | [facility] | | considered for monitoring nursing home glycemic control in patients with: | [...] + + + + + | [facility] | [address] | [place] [address] | | | SERVICES, SPECIAL | PARK [...] INTERPRETIVE | 70 - 180 nmol/L | [facility] | | | WHOLE [...] | | | | | determined by [facility] | | | | | | Laboratories. See | | | | | | Compliance Statement B: | | | | | | [employer]/CSPerformed | | | | | | by [employer],[address] | | | | | | [address] [facility] | | | | | | [address] | | | | | | [phone].[employer]. | | | | | | comIsmael [...] REG | [address] | [place], [place] | | | [facility] | | [address] | | + + + + + [...] + + + + + | [facility] | [address] | [place] [address] | | | SERVICES, CORE | CLARENCE [...] [facility] | [address] | [place] [address] | | | SERVICES, CORE | PARK [...] + + + + + | [facility] | [address] | [place] [address] | | | SERVICES, CORE | CLARENCE [...] [facility] | [address] | [place] [address] | | | SERVICES, CORE | CLARENCE [...] [facility] | [address] | [place] [address] | | | SERVICES, CORE | PARK [...] | + + + + + | [facility] | [address] | [place] [address] | | | SERVICES, CORE | PARK [...]
--- OUTSIDE RECORDS SUMMARY | ~2019-06-01 | XMS | Encounter Summary ---
Demographics + + + | Address | [address] | | | [place] [address] | + + + | Home Phone [...] [place], [place] | | | | | [address] | | + + + + + | Ellie Vang | ECON | Unknown | | + + + + + Care Team Providers + +------+ + | Care Innovations Paraprofessional Name | Role | Phone | + [...] | | | | Procedures | [address] | | | | | CT ABDOMEN & | Ave | [address] | | | | | PELVIS W IV | Mailcode: | Mailcode: | | | | | CONTRAST | Center for | [address] [place] | | | | | | Health and | Hospital | | | | | | [facility], | [place], [place] | | | | | | Building [address] | [address] | | | | | | [place], [place] | Phone: | | | | | | [address] | [phone] | | | | | | Phone: | Fax: | | | | | | [phone] | [phone] | | | | | | Fax: | | | | | | | [phone] | | +--------+--------+ + + + + [...] | | | without | SURGICAL | [facility] | | | | | mention of | CLINIC [address] [place], | | | | | obstruction | [address] | [place] | | | | | or gangrene | AVE | [address] | | | | | | [place], | Phone: | | | | | | [place] [address] | [phone] | | | | | | Phone: | Fax: | | | | | | [phone] | [phone] | | | | | | Fax: | | | | | | | [phone] | | +--------+--------+ + + + + [...] [address] | | | | | [address] | [address] | | | | | Mailcode: Center | [place], [place] | | | | | [facility] and | [address] | | | | | [facility], [facility] 2 | [phone] | | | | | [place], [place] | | | | | | [address] | | | | | | [phone] | | | +--------+---------+ + + + [...] colonoscopy), but a referral [facility] mentioned this was probably an incisional [...] coordination for [facility] Medicaid & [facility] Bariatric program for wt loss. 3. [...] material. 4. Continue to meet with her Deputy K 9 in the outpatient setting for diet and [...] has been instructed to f/u w/ her macadam raker for a strict diet of <1000 kcal/d [...] teaching. Howie Faria MD MIS/Bariatric Fellow, Pager 44436 [facility] Attending provider: Hernandez Brian MD documented [...] Rd | | | | | | [place], [place] | | | | | | [address] | | | | | | [phone] | | | | | | | | +--------+ + + + + | 06/24/ | Surgery | Surgery | Chilo, | OPEN VENTRAL HERNIA | | 2018 | | | MD [address] | REPAIR WITH | | | | | [address] | BIOLOGICAL MESH | | | | | [place], [place] | | | | | | [address] | | | | | | [phone] | | | | | | | | +--------+ + + + + | 06/30/ | Office | Cardiology | Tiny Randell, | | | 2018 | Visit | | [phone] | | | | | | [place], [place] | | | | | | [address] | | | | | | [phone] | | | | | | | [...] | | + +---------+ + + | [facility] DEPARTMENT OF | | | | | RADIOLOGY | | | | + +---------+ + + documented in this encounter Visit Diagnoses + + | Diagnosis | + + | Hernia - Primary Hernia of unspecified site of abdominal cavity without mention of | | obstruction or gangrene | + + documented in this encounter
--- OUTSIDE RECORDS SUMMARY | ~2019-06-01 | XMS | Encounter Summary ---
Demographics + + + | Address | [address] | | | [place] [address] | + + + | Home Phone [...] + | Katalina Padilla | ECON | [address] | | | | | [place], [place] | | | | | [address] | | + + + + + | Ellie Vang | ECON | Unknown | | + + + + + Care Team Providers + +------+ + | Care Chip Mixer Name | Role | Phone | [...] | | [address] | [place], [place] | | | | | Mailcode: [place] | [address] | | | | | for Health and | [phone] | | | | | [facility] [address] | | | | | | [place], [place] | | | | | | [address] | | | | | | [phone] | | | +--------+ + + + [...] [place] | | | | | | [address] | | | | | | [phone] | | | | | | | | +--------+ + + + + | 06/24/ | Surgery | Surgery | Chilo, | OPEN VENTRAL HERNIA | | 2018 | | | MD Demond Recinos | REPAIR WITH | | | | | [address] | BIOLOGICAL MESH | | | | | [place] | | | | | | [address] | | | | | | [phone] | | | | | | | | +--------+ + + + + | 06/30/ | Office | Cardiology | Randell Franks, | | | 2019 | Visit | | MD [address] | | | | | | [place], [place] | | | | | | [address] | | | | | | [phone] | | | | | | | | +--------+ + + + + documented as of this encounter Visit Diagnoses Not on filedocumented in this encounter"
--- OUTSIDE RECORDS SUMMARY | ~2019-06-01 | XMS | Encounter Summary ---
Demographics + + + | Address | [address] | | | [place] [address] | + + + | Home Phone [...] + | Katalina Padilla | ECON | [address] | | | | | [place], [place] | | | | | [address] | | + + + + + | Ellie Vang | ECON | Unknown | | + + + + + Care Team Providers + +------+ + | Care English Language Arts Teacher Name | Role | Phone | [...] [address] | | | | | [place], [place] | [address] | | | 03/03/ | | [address] | [place], [place] | | | 2014 | | [phone] | [address] | | | | | | [phone] | | | | | | | [...] port site who was transferre d to [facility] for concern of an incarcerated hernia. [...] mouth once daily. , Historical Med CALCIUM [id number]-GENIS ORAL Take 1 tablet by mouth two [...] 10:40 AM Randell Franks Cardiology Preventive at [facility] [phone] Cardiology 04/09/2015 1:00 PM Egs Ppv Tra Trauma Emergency General Surgery at [facility] [phone] [facility] Outstanding labs/studies: None Discharging Physician: GABO LANGSTON MD Attending Physician: Dr. Cantu PCP: Fadi Goodrich DO Signed: GABO LANGSTON MD Pager #[phone] Surgical Data Processing Mechanic [facility] Associated attestation - Tye Carrillo DO - 03/12/2015 9:12 AM PDTAttending: I discussed this patient with the resident and agree with the assessment and plan as outlin ed in this note and participated in the planning of care. Tye Carrillo DO, MBA, FACS Division of Trauma, Critical Care & Acute Care Surgery [facility] [phone] documented in this encounter Medications at Time of Discharge + + + +---------+--------+ + | Medication | Sig | Dispensed | Refills | Start | End Date | | | | | | Date | | + + + +---------+--------+ + | CALCIUM | Take 2 tablets by | | 0 | | | | [id number]&[id number]-[id number]-GEN | mouth two times | | | [...] might be differ ent from the original. [facility] [place] DEPARTMENT OF SURGERY EMERGENCY GENERAL SURGERY Division [...] obesity with known ventral hernias transferred to [facility] for surgical managem ent of ventral hernia, now s/p repair. Post surgical pain: -patient ready for d/c, discussed f/u. Patient lives far away and has other appointments at [facility]. Will attempt to coordinate appointments. Discharge Plan: D/c today GABO LANGSTON MD Pager #[phone] Surgical Data Processing Mechanic [facility] Nataliia Mendez Salomón rose R - 03/02/2015 1:[address] [facility] DEPARTMENT OF SURGERY EMERGENCY GENERAL SURGERY Division of Trauma and Critical Care Attending Physician: Shahid Cantu MD Progress Note Note Date: 03/02/2015 Admission Date: 2015 DYLAN ROMERO, Hospital Day #2 40 F PMH morbid obesity (BMI 71 today), DM2, depression, GERD, h/o stroke at age 18, and kn own ventral hernias transferred to [facility] for surgical treatment of suspected incarcerated [...] obesity with known ventral hernias transferred to [facility] for surgical managem ent of ventral [...] will be robel ing her home to [place], [place]. CALVIN ROMERO MD PGY-1 Anesthesiology Pager: [phone] [facility] [address] [place] [address] Karthik Oneill MD - 03/02/2015 8:26 AM [id number] Calvin William Md - 03/01/2015 5:34 PM PDT Brief Post Operative Note: 40 F PMH morbid obesity (BMI 71 today), DM2, depression, GERD, h/o stroke at age 18, and kn own ventral hernias transferred to [facility] for surgical treatment of incarcerated ventral [...] control CALVIN ROMERO MD PGY-1 Anesthesiology Pager: [phone] signed by Calvin Romero Md at 03/01/2015 [...] [address] | | | | | | [place], [place] | | | | | | [address] | | | | | | [phone] | | | | | | | | +--------+ + + + + | 06/24/ | Surgery | Surgery | Chilo, | OPEN VENTRAL HERNIA | | 2018 | | | MD Demond Recinos [address] | REPAIR WITH | | | | | [address] | BIOLOGICAL MESH | | | | | [place], [place] | | | | | | [address] | | | | | | [phone] | | | | | | | | +--------+ + + + + | 06/30/ | Office | Cardiology | Randell Franks, | | | 2018 | Visit | | MD [address] | | | | | | [place], [place] | | | | | | [address] | | | | | | [phone] | | | | | | | [...] | | Attending Surgeon: Shahid Cantu MD Presto Log Operator(s): Howie Angeles MD, R5 | | Karthik [...] Critical Care & Acute Care | | SurgeryShahid Cantu MDTBK/MODLDD: 03/02/2015 08:25:39DT: 03/02/2015 09:15:57Job #: | | [id number] | | | |Dr. Chris Cantu was present and scrubbed for the entirety of the case. | | | | | | | |Karthik Gonzalez MD | | | |Pursuant to federal Medicare and Medicaid regulations I was present for the entire procedur e. | | | | | | | |Shahid Cantu MD | |Metal Ceiling Builder | |Trauma, Critical Care & Acute Care Surgery | | | | | | | |Shahid Cantu MD | |TBK/MODL | | | | | | /[id number] | + ---+ CAPILLARY BLOOD GLUCOSE (NO [...] YAKOVAM | [address] | [place], [place] | | | JUSTINE DAWN OF JAKY | [facility] | [address] | | | TESTS | | | [...] (H) | 60 - 99 mg/dL | [facility] - | | | GLUCOSE, | [...] AMES | [address] | [place], [place] | | | [place] POINT OF CARE | [address] | [address] | | | TESTS | | | [...] + + | Performing | Address | City/State/[facility] | Phone Number | | Organization | | | | + + + + + | [facility] | [address] | [place], [place] | | | JUSTINE DAWN OF [place]AKY | [facility] | [address] | | | TESTS | | | [...] YAKOVAM | [address] | [place], [place] | | | JUSTINE DAWN OF JAKY | [facility] | [address] | | | TESTS | | | [...] (H) | 60 - 99 mg/dL | [facility] - | | | GLUCOSE, | [...] AMES | [address] | [place], [place] | | | [place] POINT OF CARE | [address] | [address] | | | TESTS | | | [...] KWAKU | [address] | [place], [place] | | | ABRAHAN DAWN | [facility] | [address] | | | TESTS | | | [...] | + + + + + | [facility] | [address] | [place] [address] | | | SERVICES, CORE | CLARENCE [...] | | | LABORATORY | | | GEORGIAN | | | SERVICES, | | | [...] | + + + + + | [facility] | [address] | [place] [address] | | | SERVICES, CORE | CLARENCE [...] (H) | 60 - 99 mg/dL | [facility] - | | | GLUCOSE, | [...] AMES | [address] | [place], [place] | | | JUSTINE DAWN OF CARE | [address] | [address] | | | TESTS | | | [...] MARQUAM | [address] | [place], [place] | | | JUSTINE DAWN OF CARE | [address] | [address] | | | TESTS | | | [...] MARQUAM | [address] | [place], [place] | | | JUSTINE DAWN OF CARE | [address] | [address] | | | TESTS | | | [...] (H) | 60 - 99 mg/dL | [facility] - | | | GLUCOSE, | [...] AMES | [address] | [place], [place] | | | JUSTINE DAWN OF CARE | [address] | [address] | | | TESTS | | | [...] MARQUAM | [address] | [place], [place] | | | JUSTINE DAWN OF CARE | [address] | [address] | | | TESTS | | | [...] | + + + + + | [facility] | [address] [facility] | [place] [address] | | | SERVICES, CORE | CLARENCE [...] MARQUAM | [address] | [place], [place] | | | JUSTINE DAWN OF JAKY | [address] | [address] | | | TESTS | | | [...] | | | 03/02/15 at 1018, Until 03/02/15 | | | | | [...] 8:32 | | | | | on [facility] 03/01/15 at 0900, Until | | AM [...] | | | PRN, 4 doses, Starting Thu03/01/15 | | | | | | | at 1056, Until Thu03/01/15 at | | | | | | [...] injection 1 dose, | | | Starting [facility] 03/01/15 at 1215, | | | Until [facility] 03/01/15 at 1216 | | + +---+ | | | + +---+ + +-------+ +-------+---+---+ | FLUoxetine (PROZAC) capsule 40 | Given | 03/03/20 | 40 mg | | | | mg 40 mg, oral, DAILY, First | | 15 8:32 | | | | | dose on [facility] 03/01/15 at 0900, Until | | AM [...] PDT | | | | | Starting [facility] 03/01/15 at 1056, | | | | | | | Until [facility] 03/01/15 at 1436, | | | | [...] | | | | | NEEDED, Starting 03/02/15 at | | | | | | [...] | | | | | NEEDED, Starting 03/02/15 at | | PM PDT | | [...] mL/hr | mL/hr | | | Starting [facility] 03/01/15 at 0045, | | AM PDT [...] | | First dose on [facility] 03/01/15 at 0900, | | AM PDT [...] | | | | | dose on [facility] 03/01/15 at 0900, Until | | AM [...] | | | | Starting 03/02/15 at 1417, | | | | | [...] | | | | Starting Thu03/02/15 at 194, | | | | | | | Until Thu03/03/15 at 2044, severe | | | | [...] | | | | | 1902, Until Thu03/01/15 at 1624, | | | | | [...] DAILY, First dose on Thu | | 15 8:31 | | | [...] | | | | | dose on [facility] 03/01/15 at 0900, Until | | AM [...]
--- OUTSIDE RECORDS SUMMARY | ~2019-06-01 | XMS | Encounter Summary ---
Demographics + + + | Address | [address] | | | [place] [address] | + + + | Home Phone [...] + | Katalina Padilla | ECON | [address] | | | | | [place], [place] | | | | | [address] | | + + + + + | Ellie Vang | ECON | Unknown | | + + + + + Care Team Providers + +------+ + | Care Chief Electrician Name | Role | Phone | + [...] | | | | | essential | [address] | [address] | | | | | hypertension | [address], | Ave | | | | | Type II or | [address] | [place], [place] | | | | | unspecified | [place] | [address] | | | | | type | [address] | Phone: | | | | | diabetes | Phone: | [phone] | | | | | mellitus | [phone] | Fax: | | | | | without | Fax: | [phone] | | | | | mention of | [phone] | | | | | | complication [...] | 03/06/ | Office | Cardiology | Tiny Randell, | Type 2 diabetes | | 2013 | Visit | Preventive at [facility] | [address] | mellitus (HCC) | | | | [address] | Ave [place], [place] | (Primary Dx) | | | | Mailcode: CH9A | [address] | | | | | [facility] | [phone] | | | | | and [place]rick, | | | | | | [address] | | | | | | [place], [place] | | | | | | [address] | | | | | | [phone] | | | +--------+---------+ + + + [...] Wi ll discuss with Dr. Brian and building illuminating engineer her best strategies for meeting weight loss [...] Rd | | | | | | [place], [place] | | | | | | [address] | | | | | | [phone] | | | | | | | | +--------+ + + + + | 06/24/ | Surgery | Surgery | Chilo | OPEN VENTRAL HERNIA | | 2018 | | | MD Demond Recinos [address] | REPAIR WITH | | | | | [address] | BIOLOGICAL MESH | | | | | [place], [place] | | | | | | [address] | | | | | | [phone] | | | | | | | | +--------+ + + + + | 06/30/ | Office | Cardiology | Randell Franks, | | | 2019 | Visit | | [address] | | | | | | [place] [facility] [place] | | | | | | [address] | | | | | | [phone] | | | | | | | [...] [facility] | [address] | [place] [address] | | | SERVICES, SPECIAL | PARK [...]
--- OUTSIDE RECORDS SUMMARY | ~2019-06-01 | XMS | Encounter Summary ---
Demographics + + + | Address | [address] | | | [place] [address] | + + + | Home Phone [...] + | Katalina Padilla | ECON | [address] | | | | | [place], [place] | | | | | [address] | | + + + + + | Ellie Vang | ECON | Unknown | | + + + + + Care Team Providers + +------+ + | Care Director Print Name | Role | Phone | + +------+ + | Fadi Goodrich DO | PCP | | + +------+ + Encounter Details +--------+ + + + + | Date | Type | Department | Care Team | Description | +--------+ + + + + | 02/13/ | Abstract | Cardiology | Randell Franks, | | | 2015 | | Preventive at [facility] | MD [address] | | | | | [address] | Ave [place], [place] | | | | | Mailcode: CH9A | [address] | | | | | [facility] | [phone] | | | | | and Healing, | | | | | | [address] | | | | | | [place], [place] | | | | | | [address] | | | | | | [phone] | | | +--------+ + + + [...] Rd | | | | | | [place], [place] | | | | | | [address] | | | | | | [phone] | | | | | | | | +--------+ + + + + | 06/24/ | Surgery | Surgery | Chilo, | OPEN VENTRAL HERNIA | | 2018 | | | MD Jor[address] | REPAIR WITH | | | | | [address] | BIOLOGICAL MESH | | | | | [place], [place] | | | | | | [address] | | | | | | [phone] | | | | | | | | +--------+ + + + + | 06/30/ | Office | Cardiology | Randell Franks, | | | 2019 | Visit | | MD [address] | | | | | | Ave [place], [place] | | | | | | [address] | | | | | | [phone] | | | | | | | | +--------+ + + + + documented as of this encounter Visit Diagnoses Not on filedocumented in this encounter"
--- OUTSIDE RECORDS SUMMARY | ~2019-06-01 | XMS | Encounter Summary ---
Demographics + + + | Address | [address] | | | [place] [address] | + + + | Home Phone [...] + | Katalina Padilla | ECON | [address] | | | | | [place], [place] | | | | | [address] | | + + + + + | Ellie Vang | ECON | Unknown | | + + + + + Care Team Providers + +------+ + | Care Dining Room Manager Name | Role | Phone | [...] + | Closed | | Cardiology | | Francia, | Tiny | | | | | | Kathy Feliciano NP | MD Randell | | | | | | [address] | [address] | | | | | | [address], | Ave | | | | | | [address] | [place], [place] | | | | | | [place], [place] | [address] | | | | | | [address] | Phone: | | | | | | Phone: | [phone] | | | | | | [phone] | Fax: | | | | | | Fax: | [phone] | | | | | | [phone] | | +--------+--------+ + + + + Encounter Details +--------+---------+ + + + | Date | Type | Department | Care Team | Description | +--------+---------+ + + + | 08/29/ | Office | Cardiology | Randell Franks, | HTN (hypertension) | | 2013 | Visit | Preventive at [facility] | MD [address] | (Primary Dx); 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[place], [place]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 | | | | Mailcode: [facility] | [address] | ([facility]); Morbid | | | | [facility] | [phone] | obesity (HCC) | | | | and Healing, | | | | | | [address] | | | | | | [place], [place] | | | | | | [address] | | | | | | [phone] | | | +--------+---------+ + + + [...] + + + | Blood Pressure | 145/84 | 08/29/2013 11:36 AM | | | | | PST | | + + + + + | Pulse | 91 | 08/29/2013 11:36 AM | | | | | PST | | + + + + + | Temperature | 37.2 C (98.9 F) | 08/29/2013 11:36 AM | | | | | PST | | + + + + + | Respiratory Rate | - | - | | + + + + + | Oxygen Saturation | 100% | 08/29/2013 11:36 AM | | | | | PST | | + + + + + | Inhaled Oxygen | - | - | | | Concentration | | | | + + + + + | Weight | 177.4 kg (391 lb 3.2 | 08/29/2013 11:36 AM | | | | oz) | PST | | + + + + + | Height | - | - | | + + + + + | Body Mass Index | 73.92 | 06/16/2013 1:13 PM | | | | | PST | | + + + + + documented in this encounter Progress Notes Randell Franks MD - 08/29/2013 11:49 AM PSTFormatting of this note might be [...] Ms. Livia singh last, continues on phentermine with good appetite suppression. She has continued on her d iuretic and noticed reduction in her edema of her legs and abdomen. She continues on topira mate for migraines but reports uncomfortable dysethesias on her current dose of 100 mg BID a nd is hoping to reduce this dose. She is awaiting a sleep disorders consult and is still hopeful she will be able to have a R YGBP. Weight: down from last visit Diet: healthy Exercise: less than before ROS: No CP, SOB. O: vitals BP 145/84 | Pulse 91 | Temp (Src) 37.2 C (98.9 F) (Oral) | Wt 177.447 kg (391 lb 3.2 oz) | SpO2 100% | BMI 73.95 kg/(m^2) Gen: pleasant, NAD Lungs: Clear to auscultation, no crackles Heart: Reg, no MRG Labs: None new to review. Assessment: 1) T2 Diabetes: Under good control by report. Will continue present management, monitor glu cose control. 2) Morbid obesity: No further potentiation of weight loss with addition of topiramate. Sofi it RYGBP. Plan: 1. Continue healthy eating, be as active as she can be, phentermine and topiramate 3. F/U 3 month, check A1c at that time.Electronically signed by Randell Franks MD at 12:44 PM VitaliyBriana smallwood - 08/29/2013 11:23 AM PSTTrudy circumference: 66.5 inches documented in th is encounter Plan of [...] Rd | | | | | | [place], [place] | | | | | | [address] | | | | | | [phone] | | | | | | | | +--------+ + + + + | 06/24/ | Surgery | Surgery | Chilo, | OPEN VENTRAL HERNIA | | 2018 | | | MD [address] | REPAIR WITH | | | | | [address] | BIOLOGICAL MESH | | | | | [place], [place] | | | | | | [address] | | | | | | [phone] | | | | | | | | +--------+ + + + + | 06/30/ | Office | Cardiology | Randell Franks, | | | 2018 | Visit | | MD [address] | | | | | | Ave [place], [place] | | | | | | [address] | | | | | | [phone] | | | | | | | | +--------+ + + + + documented as of this encounter Visit Diagnoses + + | Diagnosis | + + | HTN (hypertension) - Primary Unspecified essential hypertension | + + | Type 2 diabetes mellitus (HCC) Type II or unspecified type diabetes mellitus without | | mention of complication, not stated as uncontrolled | + + | Morbid obesity (HCC) Morbid obesity | + + documented in this encounter"
--- OUTSIDE RECORDS SUMMARY | ~2019-06-01 | XMS | Encounter Summary ---
Demographics + + + | Address | [address] | | | [place] [address] | + + + | Home Phone [...] [place], [place] | | | | | [address] | | + + + + + | Ellie Vang | ECON | Unknown | | + + + + + Care Team Providers + +------+ + | Care Blow Molding Machine Operator Name | Role | Phone | + +------+ + | Kenyatta Cardenas MD | PCP | | + +------+ + Reason for Visit +--------+ + | Reason | Comments | +--------+ + | Other | urine test stop any medications? | +--------+ + Encounter Details +--------+ + + + + | Date | Type | Department | Care Team | Description | +--------+ + + + + | 01/17/ | Telephone | Cardiology | Randell Franks, | Other (urine test | | 2019 | | Preventive at [facility] | [address] | stop any | | | | [address] | Ave [place], [place] | medications? ) | | | | Mailcode: Mihaela | [address] | | | | | [facility] | [phone] | | | | | and Healing, | | | | | | [address] | | | | | | [place], [place] | | | | | | [address] | | | | | | [phone] | | | +--------+ + + + [...] Rd | | | | | | [place], [place] | | | | | | [address] | | | | | | [phone] | | | | | | | | +--------+ + + + + | 06/24/ | Surgery | Surgery | Chilo, | OPEN VENTRAL HERNIA | | 2018 | | | MD Jor[address] | REPAIR WITH | | | | | [address] | BIOLOGICAL MESH | | | | | [place], [place] | | | | | | [address] | | | | | | [phone] | | | | | | | | +--------+ + + + + | 06/30/ | Office | Cardiology | Randell Franks, | | | 2018 | Visit | | [address] | | | | | | [place], [place] | | | | | | [address] | | | | | | [phone] | | | | | | | | +--------+ + + + + documented as of this encounter Visit Diagnoses Not on filedocumented in this encounter"
--- OUTSIDE RECORDS SUMMARY | ~2019-06-01 | XMS | Encounter Summary ---
Demographics + + + | Address | [address] | | | [place] [address] | + + + | Home Phone [...] [place], [place] | | | | | [address] | | + + + + + | Ellie Vang | ECON | Unknown | | + + + + + Care Team Providers + +------+ + | Care Plant General Manager Name | Role | Phone | [...] + + | 04/07/ | Hospital | [facility] | Tla Lund | | | 2019 | Encounter | [place] [address] | MD Barb [address] | | | | | [address] [place] Mailcode: | [place], [place] | | | | | [facility] | [address] | | | | | and Healing, | [phone] | | | | | [address] | | | | | | [place], [place] | | | | | | [address] | | | | | | [phone] | | | +--------+ + + + [...] Discharge Instructions Instructions Keerthi Bernard RN - 04/07/2019[place] Care Instructions after EGD (Upper Endos copy) [...] hours or on weekends and holiday Hospital Materials Engineering Technician toll free [phone] ext. [phone] and have the GI doctor information technology advisor paged. The provider who performed your procedure: [...] | | 0 | | | | CRB&BMV-Q1-ENV03-GEN | mouth two times | | | [...] from the original. PRE PROCEDURE NOTE: MR# [id number] Subjective: Elzbieta Cristina is a 44 y.o. [...] [place] | | | | | | [address] | | | | | | [phone] | | | | | | | | +--------+ + + + + | 06/24/ | Surgery | Surgery | Chilo, | OPEN VENTRAL HERNIA | | 2019 | | | MD [address] | REPAIR WITH | | | | | [address] | BIOLOGICAL MESH | | | | | [place], [place] | | | | | | [address] | | | | | | [phone] | | | | | | | | +--------+ + + + + | 06/30/ | Office | Cardiology | Randell Franks, | | | 2019 | Visit | | [address] | | | | | | [place], [place] | | | | | | [address] | | | | | | [phone] | | | | | | | [...] + | MRN: | [facility] | | [id number] Date: 04/07/2019Patient Name: Elzbieta Curtis #: | ENDOSCOPY | | [id number] of : [id number]: [id number] Type: | | | AmbulatoryRoom: Endo 5Procedure: Upper GI | | | endoscopyIndications: Generalized abdominal pain, Nausea | | | with vomitingProviders: TAL LUND MD | | | (Doctor), KEERTHI BERNARD RN (Nurse), | | | EREN SLATER (Project Coordinator)Referring MD: SYLVIA Kilpatrick | | | Mela [...] | | | The Olympus [id number] Endoscope #[id number] | | | was introduced through the [...] | | | Mouth/Throat, ONCE, 1 dose, Jsamyne | | PM PDT | | | [...]
--- OUTSIDE RECORDS SUMMARY | ~2019-06-01 | XMS | Encounter Summary ---
Demographics + + + | Address | [address] | | | [place] [address] | + + + | Home Phone [...] [place], [place] | | | | | [address] | | + + + + + | Ellie Vang | ECON | Unknown | | + + + + + Care Team Providers + +------+ + | Care Wind Turbine Sheet Metal Worker Name | Role | [...] + + | 05/20/ | Telephone | Digestive Health | Chilo | Other | | 2019 | | Center at [facility] [address] | MD Jorje [address] | | | | | [address] | [address] | | | | | Mailcode: Center | [place], [place] | | | | | [facility] and | [address] | | | | | [facility] 2 | [phone] | | | | | [place], [place] | | | | | | [address] | | | | | | [phone] | | | +--------+ + + + [...] Rd | | | | | | [place], [place] | | | | | | [address] | | | | | | [phone] | | | | | | | | +--------+ + + + + | 06/24/ | Surgery | Surgery | Chilo, | OPEN VENTRAL HERNIA | | 2018 | | | MD Jorje [address] | REPAIR WITH | | | | | [address] | BIOLOGICAL MESH | | | | | [place], [place] | | | | | | [address] | | | | | | [phone] | | | | | | | | +--------+ + + + + | 06/30/ | Office | Cardiology | Randell Franks, | | | 2018 | Visit | | [address] | | | | | | [place], [place] | | | | | | [address] | | | | | | [phone] | | | | | | | | +--------+ + + + + documented as of this encounter Visit Diagnoses Not on filedocumented in this encounter"
--- OUTSIDE RECORDS SUMMARY | ~2019-06-01 | XMS | Encounter Summary ---
Demographics + + + | Address | [address] | | | [place] [address] | + + + | Home Phone [...] + | Katalina Padilla | ECON | [address] | | | | | [place], [place] | | | | | [address] | | + + + + + | Ellie Vang | ECON | Unknown | | + + + + + Care Team Providers + +------+ + | Care Director Process Engineering Name | Role | Phone | + [...] | | 2016 | | Preventive at [facility] | MD [address] | | | | | [address] | Ave [place], [place] | | | | | Mailcode: CH9A | [address] | | | | | [facility] | [phone] | | | | | and Healing, | | | | | | Building 1 | | | | | | [facility] [place] | | | | | | [address] | | | | | | [phone] | | | +--------+ + + + [...] Rd | | | | | | [place], [place] | | | | | | [address] | | | | | | [phone] | | | | | | | | +--------+ + + + + | 06/24/ | Surgery | Surgery | Chilo, | OPEN VENTRAL HERNIA | | 2019 | | | MD [address] | REPAIR WITH | | | | | [address] | BIOLOGICAL MESH | | | | | [place], [place] | | | | | | [address] | | | | | | [phone] | | | | | | | | +--------+ + + + + | 06/30/ | Office | Cardiology | Randell Franks, | | | 2019 | Visit | | MD [address] | | | | | | [place], [place] | | | | | | [address] | | | | | | [phone] | | | | | | | | +--------+ + + + + documented as of this encounter Visit Diagnoses Not on filedocumented in this encounter"
--- OUTSIDE RECORDS SUMMARY | ~2019-06-01 | XMS | Encounter Summary ---
Demographics + + + | Address | [address] | | | [place] [address] | + + + | Home Phone [...] [place], [place] | | | | | [address] | | + + + + + | Ellie Vang | ECON | Unknown | | + + + + + Care Team Providers + +------+ + | Care Sexologist Name | Role | Phone | + +------+ + | Fadi Goodrich DO | PCP | | + +------+ + Encounter Details +--------+ + + + + | Date | Type | Department | Care Team | Description | +--------+ + + + + | 07/19/ | Abstract | Digestive Health | Kathy Feldman, | | | 2012 | | Center at [facility] [address]85 | TESTER OPERATOR [address] | | | | | [address] | [facility] | | | | | Mailcode: Center | [place], [place] | | | | | [facility] Health and | [address] | | | | | [facility] 2 | [phone] | | | | | [place], [place] | | | | | | [address] | | | | | | [phone] | | | +--------+ + + + [...] Rd | | | | | | [place], [place] | | | | | | [address] | | | | | | [phone] | | | | | | | | +--------+ + + + + | 06/24/ | Surgery | Surgery | Chilo | OPEN VENTRAL HERNIA | | 2018 | | | MD Jorje [address] | REPAIR WITH | | | | | [address] | BIOLOGICAL MESH | | | | | [place], [place] | | | | | | [address] | | | | | | [phone] | | | | | | | | +--------+ + + + + | 06/30/ | Office | Cardiology | Randell Franks, | | | 2018 | Visit | | [address] | | | | | | Ave [place], [place] | | | | | | [address] | | | | | | [phone] | | | | | | | | +--------+ + + + + documented as of this encounter Visit Diagnoses Not on filedocumented in this encounter"
--- OUTSIDE RECORDS SUMMARY | ~2019-06-01 | XMS | Encounter Summary ---
Demographics + + + | Address | [address] | | | [place] [address] | + + + | Home Phone [...] + | Katalina Padilla | ECON | [address] | | | | | [place], [place] | | | | | [address] | | + + + + + | Ellie Vang | ECON | Unknown | | + + + + + Care Team Providers + +------+ + | Care Consultant [employer]. Vice President [employer] (Ex ) Name | Role | Phone | + [...] | [facility] | | | with COTTON ACREAGE MEASURER | | hypertension | [address] | [address] | | | | | Right | [address] | [address] | | | | | heart | [place], [place] | Mailcode: | | | | | failure | [address] | Center for | | | | | ([facility]) Type | Phone: | Health and | | | | | 2 diabetes | [phone] | Healing, | | | | | mellitus | Fax: | Building 2 | | | | | without | [phone] | [place], [place] | | | | | complication | | [address] | | | | | , with | | Phone: | | | | | long-term | | | | | | | current use | | Fax: | | | | | of insulin | | [phone] | | | | | ([facility]) | | | | | | | [...] | | 2 diabetes | JEAN, | [place], [place] | | | | | mellitus | [place] [address] | [address] | | | | | without | Phone: | Phone: | | | | | complication | [phone] | [phone] | | | | | (HCC) | Fax: | Fax: | | | | | Procedures | [phone] | [phone] | | | | | [place] EST | | | | | | [...] | 2017 | Visit | Preventive at [facility] | [address] | hypertension | | | | [address] | Ave [place], [place] | (Primary Dx); Right | | | | Mailcode: [facility] | [address] | heart failure (HCC); | | | | [facility] | [phone] | Type 2 diabetes | | | | and Healing, | | mellitus without | | | | Building [address] | | complication, with | | | | [place], [place] | | long-term current | | | | [address] | | use of insulin (HCC) | | | | [phone] | | | +--------+---------+ + + + [...] 81 mg by mouth once daily. CALCIUM CRB&ONE-P0-TVA70-GENIS ORAL Take 2 tablets by mouth two [...] then she has worked closely with her [facility] doctor and has been been able [...] 12 CREATININE PLASMA (LAB) 0.79 EGFR - WALLISIAN >60 EGFR NON -WALLISIAN >60 GLUCOSE, PLASMA (LAB) 170 (H) CALCIUM, [...] | 2018 | Encounter | | MD Jorje [address] | | | | | | [address] | | | | | | [place], [place] | | | | | | [address] | | | | | | [phone] | | | | | | | | +--------+ + + + + | 06/24/ | Surgery | Surgery | Chilo, | OPEN VENTRAL HERNIA | | 2018 | | | MD Jorje [address] | REPAIR WITH | | | | | [address] | BIOLOGICAL MESH | | | | | [place], [place] | | | | | | [address] | | | | | | [phone] | | | | | | | | +--------+ + + + + | 06/30/ | Office | Cardiology | Randell Franks, | | | 2018 | Visit | | [address] | | | | | | Ave [place], [place] | | | | | | [address] | | | | | | [phone] | | | | | | | [...] CENTER LABORATORY | [address] | [place] [address] | | | CLAIRE, LYDIA | CLARENCE [...] reference ranges effective May | | | 22015. | LABORATORY | | | SERVICES, LIPID | + + + + + + + + | Performing | Address | City/State/Zipcode | Phone Number | | Organization | | | | + + + + + | [facility] | [address] | [place], [place] | | | SERVICES, LIPID | [address] | [address] | | + + + + + [...] glycated albumin should be considered for monitoring intermediate designer | LABORATORY | | glycemic control in [...] + | [facility] | [address] | [place] [address] | | | SERVICES, SPECIAL | PARK [...] [facility] | [address] | [place] [address] | | | SERVICES, CORE | PARK [...]
--- OUTSIDE RECORDS SUMMARY | ~2019-06-01 | XMS | Encounter Summary ---
Demographics + + + | Address | [address] | | | [place] [address] | + + + | Home Phone [...] [place], [place] | | | | | [address] | | + + + + + | Ellie Vang | ECON | Unknown | | + + + + + Care Team Providers + +------+ + | Care Workforce Management Coordinator Name | Role | Phone [...] | 2012 | | Center at [facility] 3485 | MD [address] | | | | | [address] | [facility] | | | | | Mailcode: Center | [place], [place] | | | | | [facility] Health and | [address] | | | | | [facility] 2 | [phone] | | | | | [place], [place] | | | | | | [address] | | | | | | [phone] | | | +--------+ + + + [...] Rd | | | | | | [place], [place] | | | | | | [address] | | | | | | [phone] | | | | | | | | +--------+ + + + + | 06/24/ | Surgery | Surgery | Chilo, | OPEN VENTRAL HERNIA | | 2018 | | | MD Jorje [address] | REPAIR WITH | | | | | [address] | BIOLOGICAL MESH | | | | | [facility] [place] | | | | | | [address] | | | | | | [phone] | | | | | | | | +--------+ + + + + | 06/30/ | Office | Cardiology | Randell Franks, | | | 2018 | Visit | | [address] | | | | | | [place] [facility] [place] | | | | | | [address] | | | | | | [phone] | | | | | | | | +--------+ + + + + documented as of this encounter Visit Diagnoses Not on filedocumented in this encounter"
--- OUTSIDE RECORDS SUMMARY | ~2019-06-01 | XMS | Encounter Summary ---
Demographics + + + | Address | [address] | | | [place] [address] | + + + | Home Phone [...] + | Katalina Padilla | ECON | [address] | | | | | [place], [place] | | | | | [address] | | + + + + + | Ellie Vang | ECON | Unknown | | + + + + + Care Team Providers + +------+ + | Care Clothing Trades Workers Name | Role | Phone | + [...] | | | | | | [place] [address] | | | +--------+ + + + [...] Rd | | | | | | [place], [place] | | | | | | [address] | | | | | | [phone] | | | | | | | | +--------+ + + + + | 06/24/ | Surgery | Surgery | Chilo, | OPEN VENTRAL HERNIA | | 2019 | | | MD Jorje [address] | REPAIR WITH | | | | | [address] | BIOLOGICAL MESH | | | | | [place] | | | | | | [address] | | | | | | [phone] | | | | | | | | +--------+ + + + + | 06/30/ | Office | Cardiology | Randell Franks, | | | 2018 | Visit | | [address] | | | | | | [place] | | | | | | [address] | | | | | | [phone] | | | | | | | | +--------+ + + + + documented as of this encounter Visit Diagnoses Not on filedocumented in this encounter"
--- OUTSIDE RECORDS SUMMARY | ~2019-06-01 | XMS | Encounter Summary ---
Demographics + + + | Address | [address] | | | [place] [address] | + + + | Home Phone [...] + | Katalina Padilla | ECON | [address] | | | | | [place], [place] | | | | | [address] | | + + + + + | Ellie Vang | ECON | Unknown | | + + + + + Care Team Providers + +------+ + | Care Flight Surveyor Name | Role | Phone | [...] | | | 2017 | Event | [facility] | MD Jodie,PhD 8163 | | | | | Admitting Desk | [address] | | | | | Located on the 9 | [facility] [place] | | | | | floor [address] | [address] | | | | | [address] | [phone] | | | | | [place], [place] | | | | | | [address] | Jason Balbuena | | | | | | MD Twin [address] | | | | | | [address] | | | | | | [place], [place] | | | | | | [address] | | | | | | [phone] | | | | | | | [...] + + + | Incisi | 03/01/18921; Danine; Midline; | 03/01/18921 by | | | [...] Rd | | | | | | [place] | | | | | | [address] | | | | | | [phone] | | | | | | | | +--------+ + + + + | 06/24/ | Surgery | Surgery | Chilo | OPEN VENTRAL HERNIA | | 2018 | | | MD [address] | REPAIR WITH | | | | | [address] | BIOLOGICAL MESH | | | | | [place], [place] | | | | | | [address] | | | | | | [phone] | | | | | | | | +--------+ + + + + | 06/30/ | Office | Cardiology | Randell Franks, | | | 2019 | Visit | | [address] | | | | | | [place], [place] | | | | | | [address] | | | | | | [phone] | | | | | | | [...]
--- OUTSIDE RECORDS SUMMARY | ~2019-06-01 | XMS | Encounter Summary ---
Demographics + + + | Address | [address] | | | [place] [address] | + + + | Home Phone [...] + | Katalina Padilla | ECON | [address] | | | | | [place], [place] | | | | | [address] | | + + + + + | Ellie Vang | ECON | Unknown | | + + + + + Care Team Providers + +------+ + | Care Dock Manager Name | Role | Phone | [...] Description | +--------+---------+ + + + | 02/07/ | Surgery | 6A Intra Op [facility] | Pradip Starr MD | LAPAROSCOPIC | | 2013 | | [facility] | [address] | CHOLECYSTECOMY WITH | | | | Admitting Desk | Clarence Bonner [place], | INTRA-OP | | | | Located on the | [place] [address] | CHOLANGIOGRAM | | | | floor [address] | [phone] | | | | | [address] | | | | | | [place], [place] | | | | | | [address] | | | +--------+---------+ + + + [...] the resident s note. PRADIP STARR MD [facility] [address]A [address] [facility] [place] [address] orrest, Maryam Yu MD - 1:05 PM PDT [facility] DEPARTMENT OF SURGERY EMERGENCY GENERAL SURGERY Division of Trauma and Critical Care INPATIENT PROVIDER DISCHARGE SUMMARY Note Date: 02/08/2014 Admission Date: 02/07/2014 DYLAN ROMERO, Discharge Date: 08 Feb 2014 PCP: Fadi Goodrich DO Attending Physician: Milana Landaverde MD Author: MARYAM RHODES MD HPI: Dylan Romero is a 38 y.o. Female with morbid obesity, bipolar disorder and Type 2 DM who presented to the [facility] ED ([place], [place]) on 02/06/14, with a week hi story of RUQ abdominal pain that radiates to her back. There, she was found to have leukocyt osis and multiple tiny, mobile stones, + sonographic Peterson's sign on abdominal ultrasound, concerning for acute cholecystitis. She was givenIV antibiotics (cipro, flagyl) and pain med s, then transferred to [facility] by [facility] for further care. Ms. Romero endorsed 02/02 sharp, constant RUQ abdominal pain accompanied by [...] deemed ready to be discharged to home follow up. Emergency General Surgery Clinic to [...] up with Trauma Emergency General Surgery at [facility] In 4 weeks. (follow up in 2-4 weeks ) Contact information [address] [facility] Mailcode: L[address] [place] [place] [address] Thank you for the [...] the resident s note. PRADIP STARR MD [facility] [address]A [address] [place] [phone] orrest, Maryam Yu MD - 5:17 AM PDT [facility] DEPARTMENT OF SURGERY EMERGENCY GENERAL SURGERY Division [...] tolerated MARYAM RHODES MD PGY-1, General Surgery [address]39[address] pager number [facility] A [address] [place] [facility] [place] [address] documented in this encoun ter Plan of [...] Rd | | | | | | [place], [place] | | | | | | [address] | | | | | | [phone] | | | | | | | | +--------+ + + + + | 06/24/ | Surgery | Surgery | Chilo, | OPEN VENTRAL HERNIA | | 2018 | | | MD Jorje [address] | REPAIR WITH | | | | | [address] | BIOLOGICAL MESH | | | | | [place], [place] | | | | | | [address] | | | | | | [phone] | | | | | | | | +--------+ + + + + | 06/30/ | Office | Cardiology | Randell Franks, | | | 2018 | Visit Analisa Hauser MD [address] | | | | | | [place], [place] | | | | | | [address] | | | | | | [phone] | | | | | | | [...] PST)PROCEDURE NOTE (08/30/2015 6:16 PM PST)PROCEDURE N OTE (08/30/2015 6:15 PM PST) + + | [...] | [facility] | [address] | [place], [place] | | | JUSTINE DAWN OF JAKY | [address] | [address] | | | TESTS | | | [...] + + + + | [facility] | [address] | [place], [place] | | | JUSTINE DAWN OF JAKY | [facility] | [address] | | | TESTS | | | [...] (H) | 60 - 99 mg/dL | [facility] - | | | [...] [facility] | [address] | [place], [place] | | | [facility] POINT OF CARE | [address] | [address] | | | TESTS | | | [...] [facility] | [address] | [place], [place] | | | JUSTINE DAWN OF JAKY | [address] | [address] | | | TESTS | | | [...] [facility] | [address] | [place] [address] | | | SERVICES, | [address] [...] | + + + + + | [facility] | [address] | [place] [address] | | | SERVICES, | [address] [...] [facility] | [address] | [place], [place] | | | JUSTINE DAWN OF CARE | [address] | [address] | | | TESTS | | | [...] [facility] | [address] | [place] [address] | | | SERVICES, CORE | [address] [...] [facility] | [address] | [place] [address] | | | SERVICES, CORE | PARK [...] | + + + + + | [facility] | [address] | [place] [address] | | | SERVICES, CORE | PARK [...] | [facility] | [address] [facility] | [place] [address] | | | SERVICES, LYDIA | [address] [...] | | | LABORATORY | | | BRUNEIAN | | | SERVICES, | | | [...] | + + + + + | [facility] | [address] | [place] [address] | | | SERVICES, CORE | [address]ARENCE [...] [facility] | [address] | [place], [place] | | | JUSTINE DAWN OF JAKY | [facility] | [address] | | | TESTS | | | [...] Ph.D./PathologistT:02/09 | | | | | | //rdl Clinical | | | | | | [...] pattern. | | | | | | Broke Worker | | | | | | sections [...] | + + + + + | [facility] | [address] | [place] [address] | | | PATHOLOGY | [address] | | | + + + + + documented in this encounter Visit Diagnoses + + | Diagnosis | + + | Acute cholecystitis | + + documented in this encounter Administered Medications + +--------+ +-------+------+---------+ | Medication Order | MAR | Action | Dose | Rate | Site | | | Action | Date | | | | + +--------+ +-------+------+---------+ | bupivacaine (PF) | Given | 02/08/20 | 11 mL | | Abdomen | | (MARCAINE,SENSORCAINE-MPF) | | 14 4:47 | | | | | injection INTRAPROCEDURE PRN, | | PM PDT | | | | | Starting Thu02/07/14 at 1630, | | | | | | | Until e 02/07/14 at 1856 | | | | | | + +--------+ +-------+------+---------+ +-------+ +-------+---+---------+ | Given | 02/08/20 | 10 mL | | Abdomen | | | 14 4:30 | | | | | | PM PDT | | | | +-------+ +-------+---+---------+ +---+---+ | | | +---+---+ documented in this encounter
--- OUTSIDE RECORDS SUMMARY | ~2019-06-01 | XMS | Encounter Summary ---
Demographics + + + | Address | [address] | | | [place] [address] | + + + | Home Phone [...] [place], [place] | | | | | [address] | | + + + + + | Ellie Vang | ECON | Unknown | | + + + + + Care Team Providers + +------+ + | Care Meat Cutting Block Repairer Name | Role | Phone | [...] | HA Roldan | | | with PUBLIC HEALTH TEACHER | | hypertension | [address] | [address] | | | | | Right | [address] | [address] | | | | | heart | [place], [place] | [place], | | | | | failure | [address] | [place] | | | | | ([facility]) Type | Phone: | [address] | | | | | 2 diabetes | [phone] | | | | | | mellitus | Fax: | | | | | | without | [phone] | | | | | | complication | | | | | | | , with | | | | | | | long-term | | | | | | | current use | | | | | | | of insulin | | | | | | | ([facility]) | | | +--------+ + + [...] | | | [address] | [facility] [address] | (Primary Dx); | | | | Mailcode: Center | [place], [place] | 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[facility] and | [address] | with insulin therapy | | | | [address] | | ([facility]) | | | | [place], [place] | | | | | | [address] | | | | | | [phone] | | | +--------+---------+ + + + [...] Follow-Up Patient referred by: Randell Franks MD [address] [place] [address] Documented time of visit: 10:33 to 10:55 (22 minutes xvwa-cl-lfwp with patient) Surgery: Gastric Bypass Date of [...] yakut yogurt-light and fit, protein bar from [employer]. Unable to keep protei n shakes down. Fluid choices: water-4-5 bottles per day Supplementation: Flinstones, iron, vitamin D, vitamin C, Citracal supplement x 2 in the mor eusebio and 2 at night, magnesium, potassium, A13-wvjmyebu today Assessment: Vomiting likely due to volume [...] multivitamin & mineral (with iron) supplement, 2/day -7000-3709 mg calcium citrate with vitamin D/day (take in divided doses, not within 2 hour s of multivitamin or iron supplement) -500 mcg/day sublingual B12 supplement (or monthly injections) Continued to reinforce importance of mindful eating. Continue to increase physical activity. Follow up in [address],[place] Pager# [phone] Phone: [phone] documented in this en counter Plan of [...] [place] | | | | | | [address] | | | | | | [phone] | | | | | | | | +--------+ + + + + | 06/24/ | Surgery | Surgery | Chilo, | OPEN VENTRAL HERNIA | | 2018 | | | MD [address] | REPAIR WITH | | | | | [address] | BIOLOGICAL MESH | | | | | [place] | | | | | | [address] | | | | | | [phone] | | | | | | | | +--------+ + + + + | 06/30/ | Office | Cardiology | Randell Franks, | | | 2018 | Visit | | [address] | | | | | | [place], [place] | | | | | | [address] | | | | | | [phone] | | | | | | | | +--------+ + + + + documented as of this encounter Procedures + +--------+ + + + | Procedure Name | Priori | Date/Time | Associated Diagnosis | Comments | | | ty | | | | + +--------+ + + + | RI MNT RE-ASSESSMNT | Routin | 04/01/2018 | History of | | | X15MIN | e | 12:23 PM | Frandy-en-Y gastric | | | | | PDT | bypass Diabetes | | | | | | mellitus with | | | | | | insulin therapy | | | | | | ([facility]) | | + +--------+ + + + documented in this encounter Visit Diagnoses + + | Diagnosis | + + | History of Frandy-en-Y gastric bypass - Primary Bariatric surgery status | + + | Diabetes mellitus with insulin therapy (HCC) | + + documented in this encounter
--- OUTSIDE RECORDS SUMMARY | ~2019-06-01 | XMS | Encounter Summary ---
Demographics + + + | Address | [address] | | | [place] [address] | + + + | Home Phone [...] [place], [place] | | | | | [address] | | + + + + + | Ellie Vang | ECON | Unknown | | + + + + + Care Team Providers + +------+ + | Care Commercial Credit Reviewer Name | Role | Phone | + [...] [id number] | | | | | | [facility] | | | | | | [place], [place] | | | | | | [address] | | | | | | [phone] | | | +--------+ + + + [...] | | | | | | [place], [place] | | | | | | [address] | | | | | | [phone] | | | | | | | | +--------+ + + + + | 06/24/ | Surgery | Surgery | Chilo, | OPEN VENTRAL HERNIA | | 2018 | | | MD Jorje [id number] | REPAIR WITH | | | | | [address] | BIOLOGICAL MESH | | | | | [place], [place] | | | | | | [address] | | | | | | [phone] | | | | | | | | +--------+ + + + + | 06/30/ | Office | Cardiology | Randell Franks, | | | 2018 | Visit | | MD [address] | | | | | | [address] [place], [place] | | | | | | [address] | | | | | | [phone] | | | | | | | | +--------+ + + + + documented as of this encounter Visit Diagnoses Not on filedocumented in this encounter"
--- OUTSIDE RECORDS SUMMARY | ~2019-06-01 | XMS | Encounter Summary ---
Demographics + + + | Address | [address] | | | [place] [address] | + + + | Home Phone [...] [place], [place] | | | | | [address] | | + + + + + | Ellie Vang | ECON | Unknown | | + + + + + Care Team Providers + +------+ + | Care Rouge Presser Name | Role | Phone | + +------+ + PCP | Unavailable | + +------+ + Encounter Details +--------+ + + + + | Date | Type | Department | Care Team | Description | +--------+ + + + + | 05/13/ | Results | | Other, Faculty | | | 1992 | Only | | [phone] | | +--------+ + + + + [...] Rd | | | | | | [place], [place] | | | | | | [address] | | | | | | [phone] | | | | | | | | +--------+ + + + + | 06/24/ | Surgery | Surgery | Chilo, | OPEN VENTRAL HERNIA | | 2018 | | | MD Jorje [address] | REPAIR WITH | | | | | [address] | BIOLOGICAL MESH | | | | | [place], [place] | | | | | | [address] | | | | | | [phone] | | | | | | | | +--------+ + + + + | 06/30/ | Office | Cardiology | Randell Franks, | | | 2018 | Visit | | MD [address] | | | | | | [place], [place] | | | | | | [address] | | | | | | [phone] | | | | | | | [...] + | CHEST, 1 | Radiologist 1: BINH, | | | | | VIEW, | SALVATORE JENNINGS | | | | | PORTABLE | DYLAN | | | | | | | | | | | | 01 [phone] SINGLE | | | | | | PORTABLE CHEST: | | | | | | 05[birth year]93 AT 0140 HOURS | | | | [...] | | + +---------+ + + | [facility] DEPARTMENT OF | | | | [...] 1: BRIDGETT | | | | | JOSE | MORELIA-Radiologist 2: | | | | | | RAISA MONTIEL, | | | | | | DYLAN BHAKTA | | | | | | | | | | | | | | | | | | | | | | | | [birth year]-69CT SCAN OF | | | | | [...] | + + + | Ordered bailey LANDA | | + + + + [...] | | | | | | RAISA MONTIEL | | | | | | DYLAN BHAKTA | | | | | | | | | | | | | | | | | | | | | | | | 08-11-45-69CT SCAN OF | | | | | [...] | + + + | Ordered by BRAYDON GREENE | | + + + + +---------+ + + | Performing | Address | City/State/Zipcode | Phone Number | | Organization | | | | + +---------+ + + | [facility] DEPARTMENT OF | | | | | RADIOLOGY | | | | + +---------+ + + documented in this encounter Visit Diagnoses Not on filedocumented in this encounter"
--- OUTSIDE RECORDS SUMMARY | ~2019-06-01 | XMS | Encounter Summary ---
Demographics + + + | Address | [address] | | | [place] [address] | + + + | Home Phone [...] + | Katalina Padilla | ECON | [address] | | | | | [place], [place] | | | | | [address] | | + + + + + | Ellie Vang | ECON | Unknown | | + + + + + Care Team Providers + +------+ + | Care Criminal Records Technician Name | Role | Phone | + +------+ + | Fadi Goodrich DO | PCP | | + +------+ + Reason for Visit + + + | Reason | Comments | + + + | Refill Request | phentermine 37.5 mg | + + + Encounter Details +--------+--------+ + + + | Date | Type | Department | Care Team | Description | +--------+--------+ + + + | 10/29/ | Refill | Cardiology | Randell Franks, | Refill Request | | 2015 | | Preventive at [facility] | [address] | (phentermine 37.5 mg | | | | [address] | [place] [facility] [place] | ) | | | | Mailcode: [place] | [address] | | | | | [facility] | [phone] | | | | | and [address], | | | | | | [address] | | | | | | [place], [place] | | | | | | [address] | | | | | | [phone] | | | +--------+--------+ + + + [...] Rd | | | | | | [facility] [place] | | | | | | [address] | | | | | | [phone] | | | | | | | | +--------+ + + + + | 06/24/ | Surgery | Surgery | Chilo, | OPEN VENTRAL HERNIA | | 2018 | | | MD [address] | REPAIR WITH | | | | | [address] | BIOLOGICAL MESH | | | | | [place], [place] | | | | | | [address] | | | | | | [phone] | | | | | | | | +--------+ + + + + | 06/30/ | Office | Cardiology | Randell Franks, | | | 2019 | Visit | | [address] | | | | | | [place], [place] | | | | | | [address] | | | | | | [phone] | | | | | | | | +--------+ + + + + documented as of this encounter Visit Diagnoses Not on filedocumented in this encounter"
--- OUTSIDE RECORDS SUMMARY | ~2019-06-01 | XMS | Clinical Summary ---
Demographics + + + | Address | [address] | | | [place] [address] | + + + | Home Phone | | + + + | Preferred Language | Unknown | + + + | Marital Status | | + + + | Restoration Affiliation | Unknown | + + + | Race | Unknown | + + + | Ethnic Group | Unknown | + + + Author + + + | Author | [facility] (Historical as of | | | 03-12-19) | + + + | Organization | [facility] (Historical as of | | | 03-12-19) [...] Team Providers + +------+ + | Care Sky Line Yarder Name | Role | Phone | + [...] | | | Activ | | (DRISDOL) [address] | mouth twice a week. | | [...] | obesity, she is enrolled in the [facility] bariatric program. She has | | [...] obesityPickwickian syndrome Recent | | admission to [facility] for 100lb weight | | gain- DC on diuresis on 03/06/2016- she feel improvedShe was on | | Metolazone and Torsemide prior to hospitalization- both have | | better bioavailability than lasix in gut edema but she retained | | 100lbs - how ever she is currently on only Torsemide 100mg Q12hrs | | started in [place] and her weight been stable sinceShe has no | | other complaints.She is pending to see NephrologistCiriloo | | 02/16/2016([facility])- Normal LV systolic function, mildly | | [...] +------+-------+ + | MEDICAID | [place] | [id number] | | | [address] | | | N | | | | [place] | | | [place] | | | | [address] | | | FIELD APPLICATION ENGINEER | | | | | + +--------+ [...] | | | mireya | | | [address]38 | [address] | + +--------+ +--------+ + +
--- OUTSIDE RECORDS SUMMARY | ~2019-06-01 | XMS | Encounter Summary ---
Demographics + + + | Address | [address] | | | [place] [address] | + + + | Home Phone [...] + | Katalina Padilla | ECON | [address] | | | | | [place], [place] | | | | | [address] | | + + + + + | Ellie Vang | ECON | Unknown | | + + + + + Care Team Providers + +------+ + | Care Technical Rep Name | Role | Phone | + [...] | | 2019 | | Preventive at [facility] | [address] | re-test? ) | | | | [address] | [place], [place] | | | | | Mailcode: [place] | [address] | | | | | [facility] | [phone] | | | | | and [address], | | | | | | [address] | | | | | | [place], [place] | | | | | | [address] | | | | | | [phone] | | | +--------+ + + + [...] Rd | | | | | | [place], [place] | | | | | | [address] | | | | | | [phone] | | | | | | | | +--------+ + + + + | 06/24/ | Surgery | Surgery | Chilo, | OPEN VENTRAL HERNIA | | 2018 | | | MD Jor[address] | REPAIR WITH | | | | | [address] | BIOLOGICAL MESH | | | | | [place], [place] | | | | | | [address] | | | | | | [phone] | | | | | | | | +--------+ + + + + | 06/30/ | Office | Cardiology | Randell Franks, | | | 2019 | Visit | | [address] | | | | | | Ave [place], [place] | | | | | | [address] | | | | | | [phone] | | | | | | | [...]
--- OUTSIDE RECORDS SUMMARY | ~2019-06-01 | XMS | Encounter Summary ---
Demographics + + + | Address | [address] | | | [place] [address] | + + + | Home Phone [...] [place], [place] | | | | | [address] | | + + + + + | Ellie Vang | ECON | Unknown | | + + + + + Care Team Providers + +------+ + | Care Director Advanced Name | Role | Phone | + [...] | | | | | | [place] [address] | | | +--------+ + + + [...] Rd | | | | | | [place], [place] | | | | | | [address] | | | | | | [phone] | | | | | | | | +--------+ + + + + | 06/24/ | Surgery | Surgery | Chilo, | OPEN VENTRAL HERNIA | | 2019 | | | MD [address] | REPAIR WITH | | | | | [address] | BIOLOGICAL MESH | | | | | [place] | | | | | | [address] | | | | | | [phone] | | | | | | | | +--------+ + + + + | 06/30/ | Office | Cardiology | Randell Franks, | | | 2018 | Visit | | [address] | | | | | | [place] | | | | | | [address] | | | | | | [phone] | | | | | | | | +--------+ + + + + documented as of this encounter Visit Diagnoses Not on filedocumented in this encounter"
--- OUTSIDE RECORDS SUMMARY | ~2019-06-01 | XMS | Encounter Summary ---
Demographics + + + | Address | [address] | | | [place] [address] | + + + | Home Phone [...] [place], [place] | | | | | [address] | | + + + + + | Ellie Vang | ECON | Unknown | | + + + + + Care Team Providers + +------+ + | Care Pastry Finisher Name | Role | Phone | + +------+ + | Fadi Goodrich DO | PCP | | + +------+ + Encounter Details +--------+ + + + + | Date | Type | Department | Care Team | Description | +--------+ + + + + | 11/09/ | Abstract | Cardiology | Randell Franks, | | | 2014 | | Preventive at [facility] | MD [address] | | | | | [address] | Ave [place], [place] | | | | | Mailcode: CH9A | [address] | | | | | [facility] | [phone] | | | | | and Healing, | | | | | | [address] | | | | | | [place], [place] | | | | | | [address] | | | | | | [phone] | | | +--------+ + + + [...] Rd | | | | | | [place], [place] | | | | | | [address] | | | | | | [phone] | | | | | | | | +--------+ + + + + | 06/24/ | Surgery | Surgery | Chilo, | OPEN VENTRAL HERNIA | | 2018 | | | MD [address] | REPAIR WITH | | | | | [address] | BIOLOGICAL MESH | | | | | [place], [place] | | | | | | [address] | | | | | | [phone] | | | | | | | | +--------+ + + + + | 06/30/ | Office | Cardiology | Randell Franks, | | | 2019 | Visit | | MD [address] | | | | | | Ave [place], [place] | | | | | | [address] | | | | | | [phone] | | | | | | | | +--------+ + + + + documented as of this encounter Visit Diagnoses Not on filedocumented in this encounter"
--- OUTSIDE RECORDS SUMMARY | ~2019-06-01 | XMS | Encounter Summary ---
Demographics + + + | Address | [address] | | | [place] [address] | + + + | Home Phone [...] + | Katalina Padilla | ECON | [address] | | | | | [place], [place] | | | | | [address] | | + + + + + | Ellie Vang | ECON | Unknown | | + + + + + Care Team Providers + +------+ + | Care Bulb Sorter Name | Role | Phone | [...] | | 2014 | | Preventive at [facility] | MD [address] | | | | | [address] | Ave [place], [place] | | | | | Mailcode: 9A | [address] | | | | | [facility] | [phone] | | | | | and [address], | | | | | | [address] | | | | | | [place], [place] | | | | | | [address] | | | | | | [phone] | | | +--------+--------+ + + + [...] | 2018 | Encounter | | MD [address] Rec[address] | | | | | | [address] | | | | | | [place], [place] | | | | | | [address] | | | | | | [phone] | | | | | | | | +--------+ + + + + | 06/24/ | Surgery | Surgery | Chilo, | OPEN VENTRAL HERNIA | | 2018 | | | MD [address] | REPAIR WITH | | | | | [address] | BIOLOGICAL MESH | | | | | [place], [place] | | | | | | [address] | | | | | | [phone] | | | | | | | | +--------+ + + + + | 06/30/ | Office | Cardiology | Randell Franks, | | | 2019 | Visit | | MD [address] | | | | | | [place] | | | | | | [address] | | | | | | [phone] | | | | | | | | +--------+ + + + + documented as of this encounter Visit Diagnoses Not on filedocumented in this encounter"
--- OUTSIDE RECORDS SUMMARY | ~2019-06-01 | XMS | Encounter Summary ---
Demographics + + + | Address | [address] | | | [place] [address] | + + + | Home Phone [...] [place], [place] | | | | | [address] | | + + + + + | Ellie Vang | ECON | Unknown | | + + + + + Care Team Providers + +------+ + | Care Technical Assistant Name | Role | Phone | [...] | | | | | Healing, | [place], [place] | | | | | | [address] | [address] | | | | | | [place], [place] | Phone: | | | | | | [address] | [phone] | | | | | | Phone: | Fax: | | | | | | [phone] | [phone] | | | | | | Fax: | | | | | | | [phone] | | +--------+--------+ + + + + [...] | | | | | Healing, | [place], [place] | | | | | | [address] | [address] | | | | | | [place], [place] | Phone: | | | | | | [address] | [phone] | | | | | | Phone: | Fax: | | | | | | [phone] | [phone] | | | | | | Fax: | | | | | | | [phone] | | +--------+--------+ + + + + Encounter Details +--------+ + + + + | Date | Type | Department | Care Team | Description | +--------+ + + + + | 10/07/ | Hospital | Radiology/Imaging | | | | 2012 | Encounter | Lab at [facility] [address] | | | | | [address] Mailcode: | | | | | | [facility] | [facility], | | | | | | Building [address], 3rd | | | | | | Floor [place], [place] | | | | | | [address] | | | | | | [phone] | | | +--------+ + + + [...] Rd | | | | | | [place], [place] | | | | | | [address] | | | | | | [phone] | | | | | | | | +--------+ + + + + | 06/24/ | Surgery | Surgery | Chilo, | OPEN VENTRAL HERNIA | | 2018 | | | MD [address] | REPAIR WITH | | | | | [address] | BIOLOGICAL MESH | | | | | [place], [place] | | | | | | [address] | | | | | | [phone] | | | | | | | | +--------+ + + + + | 06/30/ | Office | Cardiology | Randell Franks, | | | 2018 | Visit | | [address] | | | | | | [place], [place] | | | | | | [address] | | | | | | [phone] | | | | | | | [...] + + | JUSTINE PEÑA | [address] [facility] | [place] [address] | | | OF CARE TESTS | | | | + + + + + documented in this encounter Visit Diagnoses + + | Diagnosis | + + | Hernia Hernia of unspecified site of abdominal cavity without mention of obstruction | | or gangrene | + + documented in this encounter"
--- OUTSIDE RECORDS SUMMARY | ~2019-06-01 | XMS | Encounter Summary ---
Demographics + + + | Address | [address] | | | [place] [address] | + + + | Home Phone [...] + | Katalina Padilla | ECON | [address] | | | | | [place], [place] | | | | | [address] | | + + + + + | Ellie Vang | ECON | Unknown | | + + + + + Care Team Providers + +------+ + | Care Therapeutic Case Manager Name | Role | Phone [...] | | | | | obstruction | [place], | Mailcode: | | | | | or gangrene | [place] | [facility] for | | | | | Abdominal | [address] | Health and | | | | | pain, | Phone: | Healing, | | | | | unspecified | | Building 2 | | | | | abdominal | Fax: | [place], [place] | | | | | location | [phone] | [address] | | | | | Procedures | | Phone: | | | | | CONSULT TO | | [phone] | | | | | SURGERY - | | Fax: | | | | | GENERAL | | [phone] | + +--------+ + + + + [...] | | [address] | Ave [place], [place] | | | | | Mailcode: [place] | [address] | | | | | for Health and | | | | | | [facility], [facility] 2 | | | | | | [facility] [place] | | | | | | [address] | | | | | | | [...] Rd | | | | | | [place], [place] | | | | | | [address] | | | | | | [phone] | | | | | | | | +--------+ + + + + | 06/24/ | Surgery | Surgery | Chilo | OPEN VENTRAL HERNIA | | 2018 | | | MD [address] | REPAIR WITH | | | | | [address] | BIOLOGICAL MESH | | | | | [facility] [place] | | | | | | [address] | | | | | | [phone] | | | | | | | | +--------+ + + + + | 06/30/ | Office | Cardiology | Randell Franks, | | | 2018 | Visit | | [address] | | | | | | [place], [place] | | | | | | [address] | | | | | | [phone] | | | | | | | [...]
--- OUTSIDE RECORDS SUMMARY | ~2019-06-01 | XMS | Encounter Summary ---
Demographics + + + | Address | [address] | | | [place] [address] | + + + | Home Phone [...] + | Katalina Padilla | ECON | [address] | | | | | [place], [place] | | | | | [address] | | + + + + + | Ellie Vang | ECON | Unknown | | + + + + + Care Team Providers + +------+ + | Care Flake Or Shred Roll Operator Name | Role | Phone [...] | Ion Colvin MD | [address] | | | | | [place] | [address] | | | | | gastric | [address] | Mailcode: | | | | | bypass | [place], [place] | [facility] | | | | | Nausea and | [address] | for Health | | | | | vomiting, | Phone: | and Healing, | | | | | intractabili | | Building [address] | | | | | ty of | Fax: | [place], [place] | | | | | vomiting not | [phone] | [address] | | | | | specified, | | Phone: | | | | | unspecified | | [phone] | | | | | vomiting | | Fax: | | | | | type | | [phone] | | | | | Decreased | [...] | | | | | | DILATION MO | | | | | | | UPPER GI | | | | | | | ENDOSCOPY,BI | | | | | | | OPSY MO UP | | | | | | [...] | | 2017 | | Center at [facility] [address] | MD [address] | | | | [address] | [place], [place] | | | | | Mailcode: [place] | [address] | | | | | for Health and | | | | | | [place] [address] | | | | | | [place], [place] | | | | | | [address] | | | | | | [phone] | | | +--------+ + + + [...] Rd | | | | | | [place], [place] | | | | | | [address] | | | | | | [phone] | | | | | | | | +--------+ + + + + | 06/24/ | Surgery | Surgery | Chilo | OPEN VENTRAL HERNIA | | 2018 | | | Jorje, MD [address] | REPAIR WITH | | | | | [address] | BIOLOGICAL MESH | | | | | [place], [place] | | | | | | [address] | | | | | | [phone] | | | | | | | | +--------+ + + + + | 06/30/ | Office | Cardiology | Randell Franks, | | | 2019 | Visit | | [address] | | | | | | [place], [place] | | | | | | [address] | | | | | | [phone] | | | | | | | [...]
--- OUTSIDE RECORDS SUMMARY | ~2019-06-01 | XMS | Encounter Summary ---
Demographics + + + | Address | [address] | | | [place] [address] | + + + | Home Phone [...] [place], [place] | | | | | [address] | | + + + + + | Ellie Vang | ECON | Unknown | | + + + + + Care Team Providers + +------+ + | Care Nuclear Medicine Medical Director Name | Role | Phone | [...] Rd | | | | | | [place], [place] | | | | | | [address] | | | | | | [phone] | | | | | | | | +--------+ + + + + | 06/24/ | Surgery | Surgery | Chilo, | OPEN VENTRAL HERNIA | | 2018 | | | MD J[address]je [address] | REPAIR WITH | | | | | [address] | BIOLOGICAL MESH | | | | | [place], [place] | | | | | | [address] | | | | | | [phone] | | | | | | | | +--------+ + + + + | 06/30/ | Office | Cardiology | Randell Franks, | | | 2018 | Visit | | [address] | | | | | | [place], [place] | | | | | | [address] | | | | | | [phone] | | | | | | | | +--------+ + + + + documented as of this encounter Visit Diagnoses Not on filedocumented in this encounter"
--- OUTSIDE RECORDS SUMMARY | ~2019-06-01 | XMS | Encounter Summary ---
Demographics + + + | Address | [address] | | | [place] [address] | + + + | Home Phone [...] [place], [place] | | | | | [address] | | + + + + + | Ellie Vang | ECON | Unknown | | + + + + + Care Team Providers + +------+ + | Care Building Surveyor Name | Role | Phone | + +------+ + | Fadi Goodrich DO | PCP | | + +------+ + Encounter Details +--------+ + + + + | Date | Type | Department | Care Team | Description | +--------+ + + + + | 11/06/ | Abstract | Digestive Health | Shereen Georges, | | | 2015 | | Center at [facility] [address] | ACNP [address] | | | | | [address] | Ave [place], [place] | | | | | Mailcode: [place] | [address] | | | | | for Health and | | | | | | [facility] 2 | | | | | | [facility] [place] | | | | | | [address] | | | | | | | [...] Rd | | | | | | [place], [place] | | | | | | [address] | | | | | | [phone] | | | | | | | | +--------+ + + + + | 06/24/ | Surgery | Surgery | Chilo, | OPEN VENTRAL HERNIA | | 2018 | | | MD [address] | REPAIR WITH | | | | | [address] | BIOLOGICAL MESH | | | | | [place], [place] | | | | | | [address] | | | | | | [phone] | | | | | | | | +--------+ + + + + | 06/30/ | Office | Cardiology | Randell Franks, | | | 2018 | Visit | | MD [address] | | | | | | [address] [place], [place] | | | | | | [address] | | | | | | [phone] | | | | | | | | +--------+ + + + + documented as of this encounter Visit Diagnoses Not on filedocumented in this encounter"
--- OUTSIDE RECORDS SUMMARY | ~2019-06-01 | XMS | Encounter Summary ---
Demographics + + + | Address | [address] | | | [place] [address] | + + + | Home Phone [...] [place], [place] | | | | | [address] | | + + + + + | Ellie Vang | ECON | Unknown | | + + + + + Care Team Providers + +------+ + | Care Ceramic Design Engineer Name | Role | Phone [...] | | | | | | [address] | | | | | | [place] | | | | | | [place] [address] | | | +--------+ + + + [...] Rd | | | | | | [place], [place] | | | | | | [address] | | | | | | [phone] | | | | | | | | +--------+ + + + + | 06/24/ | Surgery | Surgery | Chilo, | OPEN VENTRAL HERNIA | | 2018 | | | MD [address] | REPAIR WITH | | | | | [address] | BIOLOGICAL MESH | | | | | [place], [place] | | | | | | [address] | | | | | | [phone] | | | | | | | | +--------+ + + + + | 06/30/ | Office | Cardiology | Randell Franks, | | | 2018 | Visit | | [address] | | | | | | Ave [place], [place] | | | | | | [address] | | | | | | [phone] | | | | | | | | +--------+ + + + + documented as of this encounter Visit Diagnoses Not on filedocumented in this encounter"
--- OUTSIDE RECORDS SUMMARY | ~2019-06-01 | XMS | Encounter Summary ---
Demographics + + + | Address | [address] | | | [place] [address] | + + + | Home Phone [...] [place], [place] | | | | | [address] | | + + + + + | Ellie Vang | ECON | Unknown | | + + + + + Care Team Providers + +------+ + | Care Plastic Outfitter Name | Role | Phone | + [...] Visit | Medicine Clinic at | J, PARTS DRIVER | (Primary Dx); | | | | [facility] | | Dysphagia, | | | | [address] | | unspecified type; | | | | Mail Code: OC8PM | | Hypertension, | | | | Center for [facility] | | unspecified type; | | | | and Healing, | | Hyperlipidemia, | | | | [address] | | unspecified | | | | [place], [place] | | hyperlipidemia type; | | | | [address] | | Diastolic | | | | [phone] | | congestive heart | | | [...] + | Incisi | 03/01/18; 1051; Dannie CRAVAJAL ; | 03/01/18 1051 by | | [...] | | Endotracheal Tube; 7; Oral; | DELPHI PROGRAMMER | DELPHI PROGRAMMER | | | Cuffed; 06/23/18; 1542 | [...] encounter Patient Instructions Patient Instructions Tiara Mckeon, PARTS DRIVER - 06/16/2018 3:15 PM [facility] PREOPERATIVE INSTRUCTIONS Please consider having an [...] your procedure. Surgery check-in location: Admitting - [facility], ninth floor [facility] Surgery Check in Time: The Preoperative [...] it is after office hours, call the [facility] bench shear operator at [phone] and ask them to page him or [...] weight loss and diuretic tx, follows with field contact person Hypothyroidism stabilized on hormone replacement Type 2 [...] renal failure no electrolyte abnormalities no dialysis Urology/Diamond Polisher: Urologic Conditions: nephrolithiasis Endo: Diabetes: type 2 [...] sublingual Place under tongue once daily. CALCIUM CRB&SSY-I1-WGH91-GENIS ORAL Take 2 tablets by mouth two [...] vagina Allergic rhinitis Anemia Anxiety Bipolar disorder ([facility]) Chronic wound infection of abdomen from 2010 Cough Depression Diverticulitis of colon Dizziness Glaucoma Heart burn Hemorrhoids Hernia of abdominal wall Incisional hernia, incarcerated 2012 Insomnia Irregular periods Kidney stone Leaking of urine Leg sore Lymphedema Morbid obesity with body mass index of 70 and over in adult ([facility]) Myalgia and myositis Nausea Neck pain Numbness Osteoarthritis of knee Palpitations Pneumonia Shortness of breath Staphylococcal infection Stroke ([facility]) TIA (transient ischemic attack) due to [...] nilesh limb 150 cm or less 8 [facility] Family history reviewed / updated [...] weight loss and diuretic tx, follows with field contact person. Appears comp ensated today. Hypothyroidism stabilized on hormone replacement. Take on DOS as usual Type 2 diabetes, well controlled with A1c 6.1 Thank you for the opportunity to contribute to this patient's care. HILDA Lagos [facility] PREOPERATIVE MEDICINE CLINIC AT [facility] 4TH FLOOR [address] [facility] [address] I advised the patient regarding NPO [...] Rd | | | | | | [place], [place] | | | | | | [address] | | | | | | [phone] | | | | | | | | +--------+ + + + + | 06/24/ | Surgery | Surgery | Chilo, | OPEN VENTRAL HERNIA | | 2018 | | | MD Demond [address] | REPAIR WITH | | | | | [address] | BIOLOGICAL MESH | | | | | [place], [place] | | | | | | [address] | | | | | | [phone] | | | | | | | | +--------+ + + + + | 06/30/ | Office | Cardiology | Randell Franks, | | | 2018 | Visit | | [address] | | | | | | [place], [place] | | | | | | [address] | | | | | | [phone] | | | | | | | [...]
--- OUTSIDE RECORDS SUMMARY | ~2019-06-01 | XMS | Encounter Summary ---
Demographics + + + | Address | [address] | | | [place] [address] | + + + | Home Phone [...] + | Katalina Padilla | ECON | [address] | | | | | [place], [place] | | | | | [address] | | + + + + + | Ellie Vang | ECON | Unknown | | + + + + + Care Team Providers + +------+ + | Care District Sales Coordinator Name | Role | Phone | [...] | | | | | obesity | [place], [place] | | | | | | (HCC) | [address] | | | | | | Procedures | Phone: | | | | | | PHYSICAL | | | | | | | THERAPY | Fax: | | | | | | REFERRAL | [phone] | | +--------+--------+ + + + + Encounter Details +--------+ + + + + | Date | Type | Department | Care Team | Description | +--------+ + + + + | 06/22/ | Accounting Coordinator | Digestive Health | Ion Pandey, | Pre-op evaluation | | 2016 | | Center at [facility] [address] | [address] | (Primary Dx); Morbid | | | | [address] | [place], [place] | obesity (HCC) | | | | Mailcode: Center | [address] | | | | | for Health and | | | | | | Healing, [address] | | | | | | [place], [place] | | | | | | [address] | | | | | | [phone] | | | +--------+ + + + [...] Rd | | | | | | [place], [place] | | | | | | [address] | | | | | | [phone] | | | | | | | | +--------+ + + + + | 06/24/ | Surgery | Surgery | Chilo | OPEN VENTRAL HERNIA | | 2018 | | | MD Jorje [address] | REPAIR WITH | | | | | [address] | BIOLOGICAL MESH | | | | | [place], [place] | | | | | | [address] | | | | | | [phone] | | | | | | | | +--------+ + + + + | 06/30/ | Office | Cardiology | Randell Franks, | | | 2018 | Visit | | MD [address] | | | | | | Ave [place], [place] | | | | | | [address] | | | | | | [phone] | | | | | | | | +--------+ + + + + documented as of this encounter Visit Diagnoses + + | Diagnosis | + + | Pre-op evaluation - Primary Preoperative examination, unspecified | + + | Morbid obesity (HCC) Morbid obesity | + + documented in this encounter"
--- OUTSIDE RECORDS SUMMARY | ~2019-06-01 | XMS | Encounter Summary ---
Demographics + + + | Address | [address] | | | [place] [address] | + + + | Home Phone [...] [place], [place] | | | | | [address] | | + + + + + | Ellie Vang | ECON | Unknown | | + + + + + Care Team Providers + +------+ + | Care Sleep Technician Name | Role | Phone | [...] | | | | | | | [facility] for | | | | | | | Health and | | | | | | | Healing, | | | | | | | [address] | | | | | | | [place], [place] | | | | | | | [address] | | | | | | | Phone: | | | | | | | [phone] | | | | | | | Fax: | | | | | | | [phone] | +--------+--------+ + + + + Encounter Details +--------+---------+ + + + | Date | Type | Department | Care Team | Description | +--------+---------+ + + + | 06/16/ | Office | Digestive Health | Olga Lidia Montanez, | Morbid obesity (HCC) | | 2012 | Visit | Center at [address] | (Primary Dx); Type | | | | [address] | [address] | 2 diabetes mellitus | | | | Mailcode: Center | [place], [place] | ([facility]) | | | | for Health and | [address] | | | | | [facility], [facility] 2 | | | | | | [place], [place] | | | | | | [address] | | | | | | [phone] | | | +--------+---------+ + + + [...] of Visit: 10:06 to 10:32 (26 minutes [id number] with patient & friend) SUBJECTIVE: Is surprised she has gained weight; is disappointed. Still following her usual meal plan. H as d/c'd diet soda. Still struggling w/ eating out of boredom - choosing 100 kcal snacks but having ~3 of them at a time. Not as much emotional eating lately. Has been keeping food log s (on paper) - avg 9396-2597 kcal/d. Trying to increase activity. B: Atkins shake & Activia L: sandwich w/ low kcal bread, meat (low-fat), & low-fat cheese S: string cheese & 100 kcal pack of crackers D: protein, veggie. Last night: spencer cheesejoaquiner (states this is rare) S: 100 kcal [...] provided. Olga Lidia Montanez RD, LD Pager [phone] documented in this en counter Plan of [...] [place] | | | | | | [address] | | | | | | [phone] | | | | | | | | +--------+ + + + + | 06/24/ | Surgery | Surgery | Chilo, | OPEN VENTRAL HERNIA | | 2018 | | | MD Demond Recinos | REPAIR WITH | | | | | [address] | BIOLOGICAL MESH | | | | | [place] | | | | | | [address] | | | | | | [phone] | | | | | | | | +--------+ + + + + | 06/30/ | Office | Cardiology | Randell Franks, | | | 2018 | Visit | | [address] | | | | | | [place], [place] | | | | | | [address] | | | | | | [phone] | | | | | | | | +--------+ + + + + documented as of this encounter Procedures + +--------+ + + + | Procedure Name | Priori | Date/Time | Associated Diagnosis | Comments | | | ty | | | | + +--------+ + + + | NV MNT RE-ASSESSMNT | Routin | 06/16/2013 | [...]
--- OUTSIDE RECORDS SUMMARY | ~2019-06-01 | XMS | Encounter Summary ---
Demographics + + + | Address | [address] | | | [place] [address] | + + + | Home Phone [...] + | Katalina Padilla | ECON | [address] | | | | | [place], [place] | | | | | [address] | | + + + + + | Ellie Vang | ECON | Unknown | | + + + + + Care Team Providers + +------+ + | Care Independent Film Maker Name | Role | Phone | [...] | Preventive at [facility] | [address] | (Phentermine); | | | | [address] | [place], [place] | Refill Request | | | | Mailcode: Mihaela | [address] | | | | | [facility] | [phone] | | | | | and Erick, | | | | | | [address] | | | | | | [place], [place] | | | | | | [address] | | | | | | [phone] | | | +--------+--------+ + + + [...] Rd | | | | | | [place], [place] | | | | | | [address] | | | | | | [phone] | | | | | | | | +--------+ + + + + | 06/24/ | Surgery | Surgery | Chilo | OPEN VENTRAL HERNIA | | 2018 | | | MD Demond Recinos | REPAIR WITH | | | | | [address] | BIOLOGICAL MESH | | | | | [facility] [place] | | | | | | [address] | | | | | | [phone] | | | | | | | | +--------+ + + + + | 06/30/ | Office | Cardiology | Randell Franks, | | | 2019 | Visit | | [address] | | | | | | [place], [place] | | | | | | [address] | | | | | | [phone] | | | | | | | | +--------+ + + + + documented as of this encounter Visit Diagnoses Not on filedocumented in this encounter"
--- OUTSIDE RECORDS SUMMARY | ~2019-06-01 | XMS | Encounter Summary ---
Demographics + + + | Address | [address] | | | [place] [address] | + + + | Home Phone [...] + | Katalina Padilla | ECON | [address] | | | | | [place], [place] | | | | | [address] | | + + + + + | Ellie Vang | ECON | Unknown | | + + + + + Care Team Providers + +------+ + | Care Dental Internship Name | Role | Phone | [...] | | | 2013 | Event | [facility] | [address] | | | | | Admitting Desk | Lesly Gutiérrez [facility] | | | | | [facility] on the | [place] [address] | | | | | floor [address] | [phone] | | | | | [address] | | | | | | [place], [place] | | | | | | [address] | | | +--------+ + + + [...] Rd | | | | | | [place], [place] | | | | | | [address] | | | | | | [phone] | | | | | | | | +--------+ + + + + | 06/24/ | Surgery | Surgery | Chilo | OPEN VENTRAL HERNIA | | 2018 | | | MD [address]ond [address] | REPAIR WITH | | | | | [address] | BIOLOGICAL MESH | | | | | [facility] [place] | | | | | | [address] | | | | | | [phone] | | | | | | | | +--------+ + + + + | 06/30/ | Office | Cardiology | Randell Franks, | | | 2018 | Visit | | [address] | | | | | | [place], [place] | | | | | | [address] | | | | | | [phone] | | | | | | | [...]
--- OUTSIDE RECORDS SUMMARY | ~2019-06-01 | XMS | Encounter Summary ---
Demographics + + + | Address | [address] | | | [place] [address] | + + + | Home Phone [...] + | Katalina Padilla | ECON | [address] | | | | | [place], [place] | | | | | [address] | | + + + + + | Ellie Vang | ECON | Unknown | | + + + + + Care Team Providers + +------+ + | Care Driver Helper Name | Role | Phone | [...] [place]ell | | | | | | [address] | [address] | | | | | | [address], | Ave | | | | | | [address] | [place], [place] | | | | | | [place], [place] | [address] | | | | | | [address] | Phone: | | | | | | Phone: | [phone] | | | | | | [phone] | Fax: | | | | | | Fax: | [phone] | | | | | | [phone] | | +--------+--------+ + + + + Encounter Details +--------+---------+ + + + | Date | Type | Department | Care Team | Description | +--------+---------+ + + + | 08/29/ | Office | Cardiology | Randell Franks, | HTN (hypertension) | | 2013 | Visit | Preventive at [facility] | MD [address] | (Primary Dx); 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[place], [place]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 | | | | Mailcode: [facility] | [address] | ([facility]); Morbid | | | | [facility] | [phone] | obesity (HCC) | | | | and Healing, | | | | | | Building [address] | | | | | | [place], [place] | | | | | | [address] | | | | | | [phone] | | | +--------+---------+ + + + [...] [place] | | | | | | [address] | | | | | | [phone] | | | | | | | | +--------+ + + + + | 06/24/ | Surgery | Surgery | Chilo, | OPEN VENTRAL HERNIA | | 2018 | | | MD Demond [address] | REPAIR WITH | | | | | [address] | BIOLOGICAL MESH | | | | | [place], [place] | | | | | | [address] | | | | | | [phone] | | | | | | | | +--------+ + + + + | 06/30/ | Office | Cardiology | Randell Franks, | | | 2018 | Visit | | MD [address] | | | | | | Ave [place], [place] | | | | | | [address] | | | | | | [phone] | | | | | | | [...]
--- OUTSIDE RECORDS SUMMARY | ~2019-06-01 | XMS | Encounter Summary ---
Demographics + + + | Address | [address] | | | [place] [address] | + + + | Home Phone [...] [place], [place] | | | | | [address] | | + + + + + | Ellie Vang | ECON | Unknown | | + + + + + Care Team Providers + +------+ + | Care Landscape Engineer Name | Role | Phone | [...] + + | 02/07/ | Hospital | [address] | [place], | | | 2014 - | Encounter | [address] | [address] | | | | | [place], [place] | [address] | | | 02/08/ | | [address] | [place], [place] | | | 2013 | | [phone] | [address] | | | | | | [phone] | | | | | | | [...] the resident s note. PRADIP STARR MD [facility] [address] [place] [address] orrMaryam hill MD - 1:05 PM PDT [facility] DEPARTMENT OF SURGERY EMERGENCY GENERAL SURGERY Division [...] DM who presented to the [facility] ED ([place], [place]) on 02/06/14, with a week hi story of RUQ abdominal pain that radiates to her back. There, she was found to have leukocyt osis and multiple tiny, mobile stones, + sonographic Peterson's sign on abdominal ultrasound, concerning for acute cholecystitis. She was givenIV antibiotics (cipro, flagyl) and pain med s, then transferred to [facility] by [facility] for further care. Ms. Romero endorsed [...] with Trauma Emergency General Surgery at [facility] In 4 weeks. (follow up in 2-4 weeks ) Contact information [address] [facility] Mailcode: L223a Lionelyiarmen [address] [place] [address] Thank you for the [...] the resident s note. PRADIP STARR MD [facility] [address] [place] [address] orrMaryam hill MD - 5:17 AM PDT [facility] DEPARTMENT OF SURGERY EMERGENCY GENERAL SURGERY Division [...] tolerated MARYAM RHODES MD PGY-1, General Surgery [phone] pager number [facility] A [address] [facility] [phone] documented in this encoun ter Plan of [...] Rd | | | | | | [place], [place] | | | | | | [address] | | | | | | [phone] | | | | | | | | +--------+ + + + + | 06/24/ | Surgery | Surgery | Chilo, | OPEN VENTRAL HERNIA | | 2018 | | | MD Jorje [address] | REPAIR WITH | | | | | [address] | BIOLOGICAL MESH | | | | | [place], [place] | | | | | | [address] | | | | | | [phone] | | | | | | | | +--------+ + + + + | 06/30/ | Office | Cardiology | Randell Franks, | | | 2018 | Visit | | [address] | | | | | | Ave [place], [place] | | | | | | [address] | | | | | | [phone] | | | | | | | [...] AMES | [address] | [place], [place] | | | L[place]PE[place] POINT OF CARE | [address] | [address] | | | TESTS | | | [...] MARQUAM | [address] | [place], [place] | | | JUSTINE DAWN OF CARE | [facility] | [address] | | | TESTS | | | [...] MARQUAM | [address] | [place], [place] | | | JUSTINE DAWN OF JAKY | [facility] | [address] | | | TESTS | | | [...] AMES | [address] | [place], [place] | | | JUSTINE DAWN OF CARE | [address] | [address] | | | TESTS | | | [...] [facility] | [address] | [place] [address] | | | SERVICES, | [address] [...] | + + + + + | [facility] | [address] | [place] [address] | | | SERVICES, | [address] [...] KWAKU | [address] | [place], [place] | | | JUSTINE DAWN OF JAKY | [address] | [address] | | | TESTS | | | [...] [facility] | [address] | [place] [address] | | | LYDIA RANGEL | [address] [...] [facility] | [address] | [place] [address] | | | SERVICES, CORE | [address] [...] | + + + + + | [facility] | [address] | [place] [address] | | | SERVICES, CORE | P[address] [...] | + + + + + | [facility] | [address] [facility] | [place] [address] | | | SERVICES, CORE | [address] [...] + + + + + | [facility] | [address] | [place] [address] | | | SERVICES, CORE | CLARENCE [...] (H) | 60 - 99 mg/dL | [facility] - | | | GLUCOSE, | [...] AMES | [address] | [place], [place] | | | JUSTINE DAWN OF CARE | [address] | [address] | | | TESTS | | | [...] pattern. | | | | | | Hematology Technician | | | | | | sections [...] | + + + + + | [facility] | [address] | [place] [address] | | | PATHOLOGY | [address] [...]
--- OUTSIDE RECORDS SUMMARY | ~2019-06-01 | XMS | Encounter Summary ---
Demographics + + + | Address | [address] | | | [place] [address] | + + + | Home Phone | | + + + | Preferred Language | Unknown | + + + | Marital Status | | + + + | Cheondoism Affiliation | Unknown | + + + | Race | Unknown | + + + | Ethnic Group | Unknown | + + + Author + + + | Author | [facility] | | | and Jeffana | + + + | Organization | [facility] | | | and [...] Team Providers + +------+ + | Care Time Analysis Clerk Name | Role | Phone | [...] | | | | | previous | [place], | [address] | | | | | audiogram | [place] [address] | [place], [place] | | | | | Procedures | Phone: | [address] Phone: | | | | | OFFICE VISIT | [phone] | [phone] | | | | | REGULAR | Fax: | Fax: | | | | | | [phone] | [phone] | +--------+--------+ + + + + Encounter Details +--------+---------+ + + + | Date | Type | Department | Care Team | Description | +--------+---------+ + + + | 05/26/ | Office | [facility] [place] | Sherron Freedman MS | Normal hearing noted | | 2019 | Visit | AUDIOLOGY AND | [facility] [address] | on examination | | | | [facility] | [address] | (Primary Dx); | | | | [address] | [place] [address] | Pressure sensation | | | | [address] | [phone] | in both ears | | | | [place] [address] | | | | | | [phone] | | | +--------+---------+ + + + [...] Progress Notes Sherron Freedman, CCC-A - 05/26/2019 1330 PDTReferring Provider: Shamar Wetzel MD M.D. Ms. Cristina presents with plugged feeling in [...] Dr. Wetzel, ENT. Thank you. documented in this e ncounter Plan of Treatment Not on filedocumented as of this encounter Procedures + +--------+ + + + | Procedure Name | Priori | Date/Time | Associated Diagnosis | Comments | | | ty | | | | + +--------+ + + + | DIAGNOSTIC REPORT - | | 05/26/2019 | | Results for this | | EXTERNAL SCAN | | 0:00 PDT | | procedure are in the | | | | | | results section. | + +--------+ + + + documented in this encounter Results DIAGNOSTIC REPORT - EXTERNAL SCAN (05/26/2019 0:00 PDT) + + + | Narrative [...]
--- OUTSIDE RECORDS SUMMARY | ~2019-06-01 | XMS | Encounter Summary ---
Demographics + + + | Address | [address] | | | [place] [address] | + + + | Home Phone [...] [place], [place] | | | | | [address] | | + + + + + | Ellie Vang | ECON | Unknown | | + + + + + Care Team Providers + +------+ + | Care Human Resource Management Instructor Name | Role | Phone | [...] + + | 01/01/ | Emergency | [facility] Emergency | Fide Hester | | | 2017 - | | Department [address] | MD Raza [address] | | | | | [address] | [address] | | | 01/02/ | | [facility] | [place], [place] | | | 2017 | | [place], [place] | [address] | | | | | [address] | [phone] | | | | | [phone] | | | | | | | Jaime Yee, | | | | | | ANP [address] | | | | | | [facility] [address] | | | | | | [place], [place] | | | | | | [address] | | | | | | [phone] | | | | | | | | | | | | Sheree Aguiar MD | | | | | | [address] | | | | | | [place], [place] | | | | | | [address] | | | | | | | | | | | | Felix Cardoza, | | | | | | FILBERT GROWER [address] | | | | | | [facility] [address] | | | | | | [place], [place] | | | | | | [address] | | | | | | [phone] | | | | | | | [...] ready for discharge. Thank you for choosing [facility] for your healthcare needs. Abdominal Hernia Repair: [...] living will and a durable power of trade mark attorney for health care. Bring a copy [...] apply lotions, perfume s, deodorants, or nail argentine. Do not shave the surgical site yourself. [...] driving, and getting back to your [facility] routine. When should you call your [...] Repair: Before Your Surgery", log into your [employer] a ccount at [email or web address]. You can enter U288 in the "Getyoo Library" search box . Not on [employer]? Review the Cyant section of your After Visit Summary for directions on anjel aguero to sign up. Current as of: March 04, 2016 Content Version: 11.2 8386-3251 [employer]. Care instructions adapted under license by [facility]. If you have questions about a medical condition or this instr uction, always ask your healthcare professional. [employer] disclaims any curly anty or liability for [...] changes in the way you eat. An advertising specialist to help you be more active [...] Prepare for Weight-Loss Surgery", log into your [employer] [place] account at [email or web address]. You can enter C413 in the "Getyoo Library" s earch box. Not on [employer]? Review the [employer] [place] section of your After Visit Summary for directions on anjel aguero to sign up. Current as of: May 08, 2016 Content Version: 11.2 4799-1827 [employer]. Care instructions adapted under license by [facility]. If you have questions about a medical condition or this instr uction, always ask your healthcare professional. [employer] disclaims any curly anty or liability for your use of this information. documented in this encounter Medications at Time of Discharge + + + +---------+--------+ + | Medication | Sig | Dispensed | Refills | Start | End Date | | | | | | Date | | + + + +---------+--------+ + | aspirin EC 81 mg | Take 81 mg by mouth | | 0 | | | | oral tablet,delayed | once daily. | | | | | | release (DR/EC) | | | | | | + + + +---------+--------+ + | CALCIUM | Take 2 tablets by | | 0 | | | | [id number]-GEN | mouth two times | | | [...] Ball MD - 01/02/2017 7:49 AM PDT [facility] EMERGENCY GENERAL SURGERY Division [...] wall hernias, laci hobbs was flown from [place] with abdominal pain from a recurrent, reducible [...] uss with Dr. Moore. Mary Ball MD [id number] [facility] A [address] [facility] [place] [address] documented in this en counter Plan of [...] Rd | | | | | | [place], [place] | | | | | | [address] | | | | | | [phone] | | | | | | | | +--------+ + + + + | 06/24/ | Surgery | Surgery | Chilo, | OPEN VENTRAL HERNIA | | 2019 | | | MD Jorje [address] | REPAIR WITH | | | | | [address] | BIOLOGICAL MESH | | | | | [facility] [place] | | | | | | [address] | | | | | | [phone] | | | | | | | | +--------+ + + + + | 06/30/ | Office | Cardiology | Randell Franks, | | | 2019 | Visit | | [address] | | | | | | [place], [place] | | | | | | [address] | | | | | | [phone] | | | | | | | [...] [facility]QU[facility] | [address] | [place], [place] | | | [place] POINT OF CARE | [address] | [address] | | | TESTS | | | [...] | + + + + + | [facility] | [address] | [place] [address] | | | LYDIA RANGEL | [address]ENCE [...] MARQUAM | [address] | [place], [place] | | | L[place] POINT OF CARE | [facility] | [address] | | | TESTS | | | [...] [facility] | [address] | [place] [address] | | | SERVICES, CORE | PARK [...] | + + + + + | [facility] | [address] | [place] [address] | | | CLAIRE, LYDIA | CLARENCE [...] organisms may result in clinically misleading | [facility] | | information due to the low numbers and /or mixture of organisms | | | present. Recollection is suggested if clinically indicated. | | + + + + + + + + | Performing | Address | City/State/Zipcode | Phone Number | | Organization | | | | + + + + + | [facility] | [address] | [place] [address] | | | [facility] | | | | + + + [...] [facility] | [address] | [place] [address] | | | SERVICES, CORE | [address] | | | + + + + + ED VALERIE SERRA (01/01/2017 10:00 AM PDT) + + + [...] [facility] | [address] | [place], [place] | | | L[place]PE[place] POINT OF CARE | [address] | [address] | | | TESTS | | | [...] | + + + + + | [facility] | [address] | [place] [address] | | | SERVICES, | [address] [...] [facility] | [address] | [place] [address] | | | SERVICES, | [address] [...] CARE LABORATORY | [address] | [place] [address] | | | SERVICES, CORE | PARK [facility] | [address] | [place] [address] | | | LYDIA RANGEL | CLARENCE [...] MDRD equation recommended by the | [facility] | | National Kidney Disease Education Program. [...] CARE LABORATORY | [address] | [place] [address] | | | SERVICES, CORE | [address] | | | + + + + + ED INFORMATION EXCHANGE (01/01/2017 8:22 AM PDT) + + + + + + | Component | Value | Ref Range | Performed | Pathologist | | | | | At | Signature | + + + + + + | [facility] | [id number] | | [facility] | | | | [id number] | | MEDICAL | | | | [...] ---- | | | RADHA GOODRICH at [facility] | | | [facility] Unknown Primary Care | | | Unknown - Current Radha Goodrich DO | | | [phone] Primary Care | | | Unknown - Current | | + + + + + + + + | Performing | Address | City/State/Zipcode | Phone Number | | Organization | | | | + + + + + | [facility] | [address], | [place], [place] | [phone] | | [employer] | [address] | [address] | | + + + + + [...] mL, intravenous, NEEDED, | | | Starting [facility] 01/01/17 at 1751, | | | [...] | | | | First dose on [facility] 01/01/17 at 2100, | | | [...] | | | DAILY, First dose on Thu01/01/17 | | AM [...] 01/01/17 at | | | 1751, Until 01/02/17 at 1734, | | | CBG less than 70 mg/dL per Adult | | | Hypoglycemia Protocol | | + +---+ | | | + +---+ | glucose chewable tablet 16 g | | | 16 g, oral, NEEDED, Starting | | | Jasmyne 01/01/17 at 1751, Until Fri | | | 01/02/17 at 1734, CBG [...] | | | | | | | 6/8/17 at 0904, Until Jasmyne 01/01/17 | | [...] | | TIMES DAILY, First dose on [facility] | | | 01/01/17 at 2200, Until | | | Discontinued | | + +---+ | | | + +---+ + +-------+ +--------+---+---+ | magnesium oxide (MAG-OX) tablet | Given | 01/03/20 | 400 mg | | | | 400 mg 400 mg, oral, DAILY, | | 17 8:51 | | | | | First dose on [facility] 01/01/17 at 1945, | | AM PDT [...] PDT | | | | | Starting [facility] 01/01/17 at 1558, | | | | | | | Until [facility] 01/01/17 at 1848, | | | | [...] PDT | | | | | Starting [facility] 01/01/17 at 1900, | | | | [...] AM PDT | | | | | Thu01/02/17 at 0900, Until | | | | | | | Discontinued | | | | | | + +-------+ +---------+---+---+ +---+---+ | | | +---+---+ + +---------+ + +---+---+ | sodium chloride 0.9% IV | New Bag | 01/02/20 | 1,000 mL | | | | infusion 1,000 mL, intravenous, | | 17 9:47 | | | | | ONCE, 1 dose, [facility] 01/01/17 at 0945 | | AM [...] | | | | First dose on Jsamyne 01/01/17 at 2100, | | AM PDT | [...] | | | | First dose on [facility] 01/01/17 at 2200, | | PM PDT | | | | | Until Discontinued | | | | | | + +-------+ +--------+---+---+ +---+---+ | | | +---+---+ documented in this encounter
--- OUTSIDE RECORDS SUMMARY | ~2019-06-01 | XMS | Encounter Summary ---
Demographics + + + | Address | [address] | | | [place] [address] | + + + | Home Phone [...] [place], [place] | | | | | [address] | | + + + + + | Ellie Vang | ECON | Unknown | | + + + + + Care Team Providers + +------+ + | Care Editorial Assistant Name | Role | Phone | [...] | | Center at [facility] [address] | ACNP [address] | | | | | [address] | Ave [place], [place] | | | | | Mailcode: [place] | [address] | | | | | for Health and | | | | | | [facility] | | | | | | [facility] [place] | | | | | | [address] | | | | | | | [...] Rd | | | | | | [place], [place] | | | | | | [address] | | | | | | [phone] | | | | | | | | +--------+ + + + + | 06/24/ | Surgery | Surgery | Chilo, | OPEN VENTRAL HERNIA | | 2018 | | | MD Jorje [address] | REPAIR WITH | | | | | [address] | BIOLOGICAL MESH | | | | | [facility] [place] | | | | | | [address] | | | | | | [phone] | | | | | | | | +--------+ + + + + | 06/30/ | Office | Cardiology | Randell Franks, | | | 2018 | Visit | | [address] | | | | | | [place] [facility] [place] | | | | | | [address] | | | | | | [phone] | | | | | | | | +--------+ + + + + documented as of this encounter Visit Diagnoses Not on filedocumented in this encounter"
--- OUTSIDE RECORDS SUMMARY | ~2019-06-01 | XMS | Encounter Summary ---
Demographics + + + | Address | [address] | | | [place] [address] | + + + | Home Phone [...] + | Katalina Padilla | ECON | [address] | | | | | [place], [place] | | | | | [address] | | + + + + + | Ellie Vang | ECON | Unknown | | + + + + + Care Team Providers + +------+ + | Care Intertype Operator Name | Role | Phone | [...] 2018 | | Center at [facility] [address] | ACNP [address] | | | | | [address] | [place], [place] | | | | | Mailcode: [place] | [address] | | | | | for Health and | [phone] | | | | | [place] [address] | | | | | | [place], [place] | | | | | | [address] | | | | | | [phone] | | | +--------+ + + + [...] Rd | | | | | | [place], [place] | | | | | | [address] | | | | | | [phone] | | | | | | | | +--------+ + + + + | 06/24/ | Surgery | Surgery | Chilo | OPEN VENTRAL HERNIA | | 2018 | | | Jorje, MD [address] | REPAIR WITH | | | | | [address] | BIOLOGICAL MESH | | | | | [place], [place] | | | | | | [address] | | | | | | [phone] | | | | | | | | +--------+ + + + + | 06/30/ | Office | Cardiology | Randell Franks, | | | 2019 | Visit | | [address] | | | | | | [place], [place] | | | | | | [address] | | | | | | [phone] | | | | | | | | +--------+ + + + + documented as of this encounter Visit Diagnoses Not on filedocumented in this encounter"
--- OUTSIDE RECORDS SUMMARY | ~2019-06-01 | XMS | Encounter Summary ---
Demographics + + + | Address | [address] | | | [place] [address] | + + + | Home Phone [...] [place], [place] | | | | | [address] | | + + + + + | Ellie Vang | ECON | Unknown | | + + + + + Care Team Providers + +------+ + | Care Community Engagement Specialist Name | Role | Phone | [...] | | 2019 | | Preventive at [facility] | MD [address] | (PHENTERMINE 37.5 mg | | | | [address] | [place], [place] | oral tablet); | | | | Mailcode: [place] | [address] | Refill Request | | | | [facility] | [phone] | | | | | and [place], | | | | | | [address] | | | | | | [place], [place] | | | | | | [address] | | | | | | [phone] | | | +--------+--------+ + + + [...] Rd | | | | | | [place], [place] | | | | | | [address] | | | | | | [phone] | | | | | | | | +--------+ + + + + | 06/24/ | Surgery | Surgery | Chilo, | OPEN VENTRAL HERNIA | | 2018 | | | MD [address] | REPAIR WITH | | | | | [address] | BIOLOGICAL MESH | | | | | [place], [place] | | | | | | [address] | | | | | | [phone] | | | | | | | | +--------+ + + + + | 06/30/ | Office | Cardiology | Randell Franks, | | | 2019 | Visit | | MD [address] | | | | | | Ave [place], [place] | | | | | | [address] | | | | | | [phone] | | | | | | | | +--------+ + + + + documented as of this encounter Visit Diagnoses Not on filedocumented in this encounter"
--- OUTSIDE RECORDS SUMMARY | ~2019-06-01 | XMS | Encounter Summary ---
Demographics + + + | Address | [address] | | | [place] [address] | + + + | Home Phone [...] [place], [place] | | | | | [address] | | + + + + + | Ellie Vang | ECON | Unknown | | + + + + + Care Team Providers + +------+ + | Care Program Director Cable Television Name | Role | Phone | + [...] Rd | | | | | | [place], [place] | | | | | | [address] | | | | | | [phone] | | | | | | | | +--------+ + + + + | 06/24/ | Surgery | Surgery | Chilo, | OPEN VENTRAL HERNIA | | 2018 | | | MD Jorje [address] | REPAIR WITH | | | | | [address] | BIOLOGICAL MESH | | | | | [place], [place] | | | | | | [address] | | | | | | [phone] | | | | | | | | +--------+ + + + + | 06/30/ | Office | Cardiology | Randell Franks, | | | 2018 | Visit | | [address] | | | | | | [place], [place] | | | | | | [address] | | | | | | [phone] | | | | | | | | +--------+ + + + + documented as of this encounter Visit Diagnoses Not on filedocumented in this encounter"
--- OUTSIDE RECORDS SUMMARY | ~2019-06-01 | XMS | Encounter Summary ---
Demographics + + + | Address | [address] | | | [place] [address] | + + + | Home Phone [...] [place], [place] | | | | | [address] | | + + + + + | Ellie Vang | ECON | Unknown | | + + + + + Care Team Providers + +------+ + | Care Director Of Special Events Name | Role | Phone | + +------+ + | Fadi Goodrich DO | PCP | | + +------+ + Encounter Details +--------+ + + + + | Date | Type | Department | Care Team | Description | +--------+ + + + + | 12/12/ | Emergency | [facility] Emergency | | | | 2014 - | | Department [address] | | | | | | [address] | | | | 05/20/ | | [facility] | | | | 2014 | | [place], [place] | | | | | | [address] | | | | | | [phone] | | | +--------+ + + + [...] Rd | | | | | | [place], [place] | | | | | | [address] | | | | | | [phone] | | | | | | | | +--------+ + + + + | 06/24/ | Surgery | Surgery | Chilo | OPEN VENTRAL HERNIA | | 2019 | | | MD Jorje [address] | REPAIR WITH | | | | | [address] | BIOLOGICAL MESH | | | | | [place], [place] | | | | | | [address] | | | | | | [phone] | | | | | | | | +--------+ + + + + | 06/30/ | Office | Cardiology | Randell Franks, | | | 2019 | Visit | | [address] | | | | | | [place] | | | | | | [address] | | | | | | [phone] | | | | | | | | +--------+ + + + + documented as of this encounter Visit Diagnoses Not on filedocumented in this encounter"
--- OUTSIDE RECORDS SUMMARY | ~2019-06-01 | XMS | Encounter Summary ---
Demographics + + + | Address | [address] | | | [place] [address] | + + + | Home Phone [...] + | Katalina Padilla | ECON | [address] | | | | | [place], [place] | | | | | [address] | | + + + + + | Ellie Vang | ECON | Unknown | | + + + + + Care Team Providers + +------+ + | Care Wrapper Stripper Name | Role | Phone | + [...] from | | 2016 | | at [facility] [address] | [employer] [address] [facility] | | | | [place] Mailcode: | Ave [place], [place] | | | | | [address] | [address] | | | | | Health and Healing, | [phone] | | | | | | | | | | | [place], [place] | | | | | | [address] | | | | | | [phone] | | | +--------+ + + + [...] [place] | | | | | | [address] | | | | | | [phone] | | | | | | | | +--------+ + + + + | 06/24/ | Surgery | Surgery | Chilo | OPEN VENTRAL HERNIA | | 2018 | | | MD [address] | REPAIR WITH | | | | | [address] | BIOLOGICAL MESH | | | | | [place], [place] | | | | | | [address] | | | | | | [phone] | | | | | | | | +--------+ + + + + | 06/30/ | Office | Cardiology | Randell Franks, | | | 2019 | Visit | | [address] | | | | | | [place], [place] | | | | | | [address] | | | | | | [phone] | | | | | | | | +--------+ + + + + documented as of this encounter Visit Diagnoses Not on filedocumented in this encounter"
--- OUTSIDE RECORDS SUMMARY | ~2019-06-01 | XMS | Encounter Summary ---
Demographics + + + | Address | [address] | | | [place] [address] | + + + | Home Phone [...] + | Katalina Padilla | ECON | [address] | | | | | [place], [place] | | | | | [address] | | + + + + + | Ellie Vang | ECON | Unknown | | + + + + + Care Team Providers + +------+ + | Care Dent Remover Name | Role | Phone | [...] [facility] [address] | ACNP [address] | | | | | [address] | Ave [place], [place] | | | | | Mailcode: [place] | [address] | | | | | for Health and | | | | | | [facility] 2 | | | | | | [facility] [place] | | | | | | [address] | | | | | | | [...] Rd | | | | | | [place], [place] | | | | | | [address] | | | | | | [phone] | | | | | | | | +--------+ + + + + | 06/24/ | Surgery | Surgery | Chilo, | OPEN VENTRAL HERNIA | | 2018 | | | MD Jorje [address] | REPAIR WITH | | | | | [address] | BIOLOGICAL MESH | | | | | [facility] [place] | | | | | | [address] | | | | | | [phone] | | | | | | | | +--------+ + + + + | 06/30/ | Office | Cardiology | Randell Franks, | | | 2018 | Visit | | [address] | | | | | | [place] [facility] [place] | | | | | | [address] | | | | | | [phone] | | | | | | | | +--------+ + + + + documented as of this encounter Visit Diagnoses Not on filedocumented in this encounter"
--- OUTSIDE RECORDS SUMMARY | ~2019-06-01 | XMS | Encounter Summary ---
Demographics + + + | Address | [address] | | | [place] [address] | + + + | Home Phone [...] + | Katalina Padilla | ECON | [address] | | | | | [place], [place] | | | | | [address] | | + + + + + | Ellie Vang | ECON | Unknown | | + + + + + Care Team Providers + +------+ + | Care Cardiovascular Disease Specialist Name | Role | Phone | + +------+ + | Kenyatta Cardenas MD | PCP | | + +------+ + Encounter Details +--------+ + + + + | Date | Type | Department | Care Team | Description | +--------+ + + + + | 03/02/ | Kitchen Porter | Digestive Health | Keren Allen, | | | 2019 | | Center at [facility] [address] | AGACNP [address] | | | | | [address] | [place] [facility] [place] | | | | | Mailcode: [place] | [address] | | | | | for Health and | | | | | | [facility] 2 | | | | | | [place], [place] | | | | | | [address] | | | | | | | [...] Rd | | | | | | [place] | | | | | | [address] | | | | | | [phone] | | | | | | | | +--------+ + + + + | 06/24/ | Surgery | Surgery | Chilo | OPEN VENTRAL HERNIA | | 2019 | | | MD [address] | REPAIR WITH | | | | | [address] | BIOLOGICAL MESH | | | | | [place], [place] | | | | | | [address] | | | | | | [phone] | | | | | | | | +--------+ + + + + | 06/30/ | Office | Cardiology | Randell Franks, | | | 2019 | Visit | | [address] | | | | | | [place] | | | | | | [address] | | | | | | [phone] | | | | | | | | +--------+ + + + + documented as of this encounter Visit Diagnoses Not on filedocumented in this encounter"
--- OUTSIDE RECORDS SUMMARY | ~2019-06-01 | XMS | Encounter Summary ---
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 documented in this [...] times daily. , Disp: , Rfl: CALCIUM CRB&VZL-A7-[id number]-GENIS ORAL, Take 2 tablets by mouth two [...] History Narrative Updated 11/09/15 She lives in [place] with her mother and her sister (also her caregiver) lives in an apa rtment/duplex below. 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 Start time 15:35, end time 15:55. I spent a total of 20 minutes face to face with this pat ient. Over 50% of visit was in counseling. ~ 10 minutes of additional time spent reviewing chart prior to visit and documenting after this visit. Ronna Clarke DNP ACNP WINDOWS DESKTOP ENGINEER Bariatric Surgery Nurse Practitioner [facility] | [address] | [place], [place] | [address] | documented in this e ncounter Plan [...] 2019 | Encounter | | MD Jorje [address] | | | | | | [address] | | | | | | [place], [place] | | | | | | [address] | | | | | | [phone] | | | | | | | | +--------+ + + + + | 06/24/ | Surgery | Surgery | Chilo, | OPEN VENTRAL HERNIA | | 2018 | | | MD Jorje [address] | REPAIR WITH | | | | | [address] | BIOLOGICAL MESH | | | | | [place], [place] | | | | | | [address] | | | | | | [phone] | | | | | | | | +--------+ + + + + | 06/30/ | Office | Cardiology | Randell Franks, | | | 2018 | Visit | | [address] | | | | | | Ave [place], [place] | | | | | | [address] | | | | | | [phone] | | | | | | | [...] + | [facility] | [address] | [place] [address] | | | [place] | | | | + + + [...]
--- OUTSIDE RECORDS SUMMARY | ~2019-06-01 | XMS | Encounter Summary ---
Demographics + + + | Address | [address] | | | [place] [address] | + + + | Home Phone [...] [place], [place] | | | | | [address] | | + + + + + | Ellie Vang | ECON | Unknown | | + + + + + Care Team Providers + +------+ + | Care Community Health Nurse Name | Role | Phone | [...] PRINCE Giles | | | | | [place], [place] | [address] | | | 11/12/ | | [address] | [place], [place] | | | 2012 | | [phone] | [address] | | | | | | [phone] | | | | | | | [...] yuriy tral hernia. She was transferred from [place] for surgical evaluation of possible incarcer ated [...] Cipro. POD 5 she was discharged ho wy, tolerating a diabetic diet. Having bowel function. [...] yuriy tral hernia. She was transferred from [place] for surgical evaluation of possible incarcer ated [...] Cipro. POD 5 she was discharged ho wy, tolerating a diabetic diet. Having bowel function. [...] keeping you from eating and drinking, Call [phone]. It is important to stay hydrated! If [...] taking narcotic that contain Tylenol (acetaminophen) Example: [place], Lortab, Vicodin, hydrocodone/APAP, Percocet, Tylenol #3 PAIN MEDICATIONS are ONLY REFILLED during CLINIC APPOINTMENTS. Please call [phone] to schedule an appointment. Your Follow-Up Plan Follow up with ROBIN MEJIA in 2 weeks. Contact information: [address] [facility] [address] Vitals on discharge: Ht 154.9 cm (5' [...] different f rom the original. [facility] DEPARTMENT OF SURGERY EMERGENCY GENERAL SURGERY [...] clinic - [place]. [place] [phone] pager number [facility] [phone] [facility] [phone] Aminta Goodwin Md - 11/11/2012 7:40 AM PDT [facility] DEPARTMENT OF SURGERY EMERGENCY GENERAL SURGERY Division of Trauma and Critical Care Attending Physician: Andie Brian MD Progress Note Note Date: 11/11/2012 Admission Date: 11/06/2012 DYLAN ROMERO, [id number] Hospital Day #5 INTERVAL EVENTS none acute [...] mg, Rectal, DAILY PRN, Aminta Wilson MD chaumshgpy-bycwavapexsjg-lncwyadj (aka FIORICET) 50-325-40 mg 1 Tab, 1 [...] Jayne Ponce MD, 1 mg at 11/10/12801 uteawyebzp-vxogadcdjbfbq-ujweidix (aka FIORICET) 50-325-40 mg 1 Tab, 1 [...] in preservative free NaCl 0.9% 50 mL FIXED INCOME TRADING VICE PRESIDENT infusion, , Intravenous, KIESHA NUGRANT, Aracely Mccartynato, [...] diet -add bowel regimen Acute pain -HM FIXED INCOME TRADING VICE PRESIDENT, tylenol -convert to oral pain medication once [...] Fluids: LR 125ml/hr Feeding: NPO Analgesia: Dilaudid FIXED INCOME TRADING VICE PRESIDENT Sedation: not indicated Thromboprophylaxis: enoxaparin Head of [...] Ponce MD, 1 mg at 11/09/12 0855 ldvvweaxib-lsgldplleoxas-zbqndvoz (aka FIORICET) 50-325-40 mg 1 Tab, 1 [...] in preservative free NaCl 0.9% 50 mL FIXED INCOME TRADING VICE PRESIDENT infusion, , Intravenous, KIESHA NUOUS, Aracely Cruzo, [...] drainage <30ml for 24hrs Acute pain -HM FIXED INCOME TRADING VICE PRESIDENT, tylenol Diabetes: -insulin gtt not started due [...] Fluids: LR 125ml/hr Feeding: NPO Analgesia: Dilaudid FIXED INCOME TRADING VICE PRESIDENT Sedation: not indicated Thromboprophylaxis: enoxaparin Head of bed: > 30 Ulcer prophylaxis: pepcid Glycemic control: adequate Activity/PT/OT: Ongoing Yogurt: ABX on Probiotics:yes AMINTA WILSON MD General Surgery, R1 Kaleb Martin N P - 11/08/2012 8:49 AM PDT [facility] DEPARTMENT OF SURGERY EMERGENCY GENERAL SURGERY Division of Trauma and Critical Care Attending Physician: Andie Brian MD Progress Note Note Date: 11/08/2012 Admission Date: 11/06/2012 DYLAN ROMERO, [id number] Hospital Day #2 INTERVAL EVENTS NO SUBJECTIVE Pain well controlled; has headache attributed to dilaudid FIXED INCOME TRADING VICE PRESIDENT Tylenol did not help. Flatus: YES Tolerating [...] trials today. -DC ruiz Acute pain -HM FIXED INCOME TRADING VICE PRESIDENT, tylenol Diabetes: -insulin gtt not started due [...] Fluids: LR 125ml/hr Feeding: NPO Analgesia: Dilaudid FIXED INCOME TRADING VICE PRESIDENT Sedation: not indicated Thromboprophylaxis: enoxaparin Head of bed: > 30 Ulcer prophylaxis: pepcid Glycemic control: adequate Activity/PT/OT: Ongoing Yogurt: ABX on Probiotics: No KALEB WALKER NP [facility] [address] [place] [address] elvin Stephens MD - 11/07/2012 9:51 PM [...] 7.33* PCO2 49* PO2 113* HCO3 25 DJLNI5KSF 26 Q1LNUGXY 98.3* V3LHOSMTL -- FIO2 60 ABGEXCESS -0.9 Assessment, Medical Decision Making and Plan 1. Incarcerated hernia, now s/p repair and panniculectomy -Binder, pain control, minimize nausea and coughing PRN. -NG clamping trials today. 2. Acute pain -HM FIXED INCOME TRADING VICE PRESIDENT, tylenol 3. Diabetes: -insulin gtt 4. Morbid [...] Dione Grimes MD R-2, General Surgery Pager: [phone] [facility] [place] Department of Surgery Trauma ICU Team Pager (24hrs/day): [phone] I was present with the resident during the history and exam. I discussed the case with the resident and agree with the findings and plan as documented in the resident s note. KELVIN STEPHENS MD [facility] [address] [place] [address] [id number] uOnur patton MD - 11/07/2012 2:37 AM [...] in preservative free NaCl 0.9% 50 mL FIXED INCOME TRADING VICE PRESIDENT infusion Intravenous CON TINUOUS Aracely Flores, DO [...] POD#1 s/p primary repair. 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 machinist bench and prn tylenol, continue prozac and zyprexa [...] F: probable remain NPO today A: dilaudid machinist bench, prn tylenol S: prn benzos as she is at home T: will start prophylactic lovenox today H: HOB >30 degrees U: pepcid G: insulin gtt ONUR ALLEN MD, PGY3 [facility] [address] [id number] [place] [address] Onelia Shrestha MD - 11/06/2012 8:41 AM PDT [facility] DEPARTMENT OF SURGERY Division of Trauma and Critical Care Emergency General Surgery / Acute Care Surgery Attending Physician: Andie Brian MD Note Date: 11/06/2012 Admission Date: 11/06/2012 DYLAN ROMERO, [id number] Hospital Day #0 OVERNIGHT EVENTS: anxious SUBJECTIVE: [...] zenia LABS: reviewed and are available in [employer] (if new data) IMAGING: VASCULAR: IMPRESSION: Dylan [...] Rd | | | | | | [place], [place] | | | | | | [address] | | | | | | [phone] | | | | | | | | +--------+ + + + + | 06/24/ | Surgery | Surgery | Chilo, | OPEN VENTRAL HERNIA | | 2018 | | | MD Jorje [address] | REPAIR WITH | | | | | [address] | BIOLOGICAL MESH | | | | | [place], [place] | | | | | | [address] | | | | | | [phone] | | | | | | | | +--------+ + + + + | 06/30/ | Office | Cardiology | Randell Franks, | | | 2018 | Visit | | [address] | | | | | | [place], [place] | | | | | | [address] | | | | | | [phone] | | | | | | | [...] | + +--------+ + + + | UA DIPSTICK ONLY | Routin | 11/06/2012 | [...] Mae | | | | | | Coram | | | | + + + + + + + + | Specimen | + + | | + + + +---------+ + + | Performing | Address | City/State/Zipcode | Phone Number | | Organization | | | | + +---------+ + + | [facility] DEPARTMENT OF | | | [...] AMES | [address] | [place], [place] | | | [facility] | [address] | [address] | | | TESTS | | | [...] MARQUAM | [address] | [place], [place] | | | [facility] CARE | [address] | [address] | | | TESTS | | | [...] [facility] | [address] | [place] [address] | | | SERVICES, CORE | [address] | | | + + + [...] | | LABORATORY | | | [facility] | | | SERVICES, | | [...] [facility] | [address] | [place] [address] | | | SERVICES, CORE | [address] | | | + + + + + MAGNESIUM, PLASMA (11/12/2012 3:56 AM PDT) + +-------+ + + + | Component | Value | Ref Range | Performed | Pathologist | | | | | At | Signature | + +-------+ + + + | MAGNESIUM,P | 1.8 | 1.8 - 2.5 mg/dL | [facility] | | | LASMA | | | [...] | + + + + + | [facility] | [address] | [place] [address] | | | SERVICES, CORE | CLARENCE [...] YAKOV[facility] | [address] | [place] | | | [facility]ARE | [address] | [address] | | | TESTS | | | [...] MARQUAM | [address] | [place], [place] | | | [facility] OF JAKY | [address] | [address] | | | TESTS | | | [...] AMES | [address] | [place], [place] | | | [facility] CARE | [address] | [address] | | | TESTS | | | [...] MARQUAM | [address] | [place] | | | [facility] OF JAKY | [address] | [address] | | | TESTS | | | [...] [facility]U | [address] | [place], [place] | | | [facility] | [facility] | [address] | | | TESTS | | | [...] [facility] | [address] | [place] [address] | | | SERVICES, CORE | [address] [...] | | LABORATORY | | | [facility] [place] | | | SERVICES, | | [...] | + + + + + | [facility] | [address] | [place] [address] | | | SERVICES, CORE | CLARENCE [...] [facility] | [address] | [place] [address] | | | SERVICES, CORE | CLARENCE [...] (H) | 60 - 99 mg/dL | [facility] - | | | GLUCOSE, | | [...] - MARQU[facility] | [address] | [place], [place] | | | [facility] | [address] | [address] | | | TESTS | | | [...] + + + | N[facility]I AMES | [address] | [place], [place] | | | [facility] | [address] | [address] | | | TESTS | | | [...] MARQUAM | [address] | [place], [place] | | | [facility] | [address] | [address] | | | TESTS | | | [...] - MARQUAM | [address] | [place], [place] | | | [facility] | [address] | [address] | | | TESTS | | | [...] AMES | [address] | [place], [place] | | | [facility] | [address] | [address] | | | TESTS | | | [...] [facility] | [address] | [place] [address] | | | SERVICES, CORE | CLARENCE [...] | | LABORATORY | | | [facility] [place] | | | SERVICES, | | [...] | + + + + + | [facility] | [address] | [place] [address] | | | SERVICES, CORE | [address] | | | + + + + + MAGNESIUM, PLASMA (11/10/2012 3:40 AM PDT) + +---------+ + + + | Component | Value | Ref Range | Performed | Pathologist | | | | | At | Signature | + +---------+ + + + | MAGNESIUM,P | 1.5 (L) | 1.8 - 2.5 mg/dL | NEORIN | | | PRASHANTMA | | | [...] [facility] | [address] | [place] [address] | | | SERVICES, CORE | PARK [...] 92 | 60 - 99 mg/dL | [facility] - | | | GLUCOSE, [...] AMES | [address] | [place], [place] | | | [facility] | [address] | [address] | | | TESTS | | | [...] MARQUAM | [address] | [place], [place] | | | [facility] | [address] | [address] | | | TESTS | | | [...] + | [facility] - [facility] | [address] | [place], [place] | | | [facility]ARE | [address] | [address] | | | TESTS | | | [...] - | | | | | | [facility] | | + + + + + + | SOURCE BODY | Urine | | [facility] - | | | SITE | | | AIRPORT - | | | | | | [place] | | + + + + + + | CULTURE | C UrineSource: Urine | | [facility] - | | | RESULT | | | AIRPORT - | | | | Final CULTURE | | [place] | | | | RESULT:>100,000 cfu/ml | [...] + | [facility] - AIR[facility] - | [address] | [place] [address] | | | [facility] | | | | + + + [...] [facility] | [address] | [place] [address] | | | SERVICES, CORE | PARK [...] [facility] | [address] | [place] [address] | | | SERVICES, CORE | PARK [...] - KW[facility] | [address] | [place], [place] | | | [facility] | [address] | [address] | | | TESTS | | | [...] | | LABORATORY | | | [facility] | | | SERVICES, | | [...] | + + + + + | [facility] | [address] | [place] [address] | | | CLAIRE, LYDIA | [address] | | | + + + + + GISELLE (11/09/2012 4:06 AM PDT) + + + [...] [facility] | [address] | [place] [address] | | | SERVICES, CORE | [address] | | | + + + [...] [facility] | [address] | [place] [address] | | | SERVICES, LYDIA | CLARENCE [...] [facility] | [address] | [place], [place] | | | [facility] | [address] | [address] | | | TESTS | | | [...] AMES | [address] | [place], [place] | | | [facility] | [address] | [address] | | | TESTS | | | [...] [facility] | [address] | [place], [place] | | | [facility] CARE | [address] | [address] | | | TESTS | | | [...] [facility] | [address] | [place] [address] | | | SERVICES, CORE | PARK [...] [facility] | [address] | [place] [address] | | | SERVICES, CORE | PARK [...] | | LABORATORY | | | [facility] [place] | | | SERVICES, | | [...] [facility] | [address] | [place] [address] | | | SERVICES, CORE | CLARENCE [...] [facility] | [address] | [place], [place] | | | [facility] POINT OF CARE | [address] | [address] | | | TESTS | | | [...] [facility] | [address] | [place], [place] | | | [facility] CARE | [address] | [address] | | | TESTS | | | | + + + + + CAPILLARY BLOOD GLUCOSE (NO CHG), POC (11/07/2012 6:25 PM PDT) + +-------+ + + + | Component | Value | Ref Range | Performed | Pathologist | | | | | At | Signature | + +-------+ + + + | BLOOD | 82 | 60 - 99 mg/dL | K[facility]YSU [...] AMES | [address] | [place], [place] | | | [facility] | [address] | [address] | | | TESTS | | | [...] | + + + + + | [facility] | [address] | [place] [address] | | | SERVICES, CORE | CLARENCE [...] [facility] | [address] | [place] [address] | | | CLAIRE, LYDIA | [address] [...] | | LABORATORY | | | [facility] [place] | | | SERVICES, | | [...] | + + + + + | [facility] | [address] | [place] [address] | | | SERVICES, CORE | [address] | | | + + + + + X-RAY PORTABLE CHEST 1 VIEW (11/06/2012 4:46 PM PDT) + + + + + + | Component | Value | Ref Range | Performed | Pathologist | | | | | At | Signature | + + + + + + | X-RAY | STUDY: MT CHEST 1 VIEW | | | | | PORTABLE | 11/06/12 16:46:00 | | | | | CHEST 1 | INDICATION: Right upper | | | | | VIEW | lobe opacity. | | | | | | COMPARISON: Earlier same | | | | | | day a STUDY: MT CHEST 1 | | | | | [...] | | + +---------+ + + | [facility] DEPARTMENT OF | | | | | RADIOLOGY | | | | + +---------+ + + X-RAY PORTABLE CHEST 1 VIEW (11/06/2012 4:30 PM PDT) + + + + + + | Component | Value | Ref Range | Performed | Pathologist | | | | | At | Signature | + + + + + + | X-RAY | STUDY: MT CHEST 1 VIEW | | | | [...] | | + +---------+ + + | [facility] DEPARTMENT OF | | | [...] [facility] | [address] | [place] [address] | | | SERVICES, CORE | CLARENCE [...] | | LABORATORY | | | [facility] | | | SERVICES, | | [...] [facility] | [address] | [place] [address] | | | SERVICES, CORE | CLARENCE [...] | + + + + + | [facility] | [address] | [place] [address] | | | SERVICES, CORE | CLARENCE [...] (H) | 60 - 99 mg/dL | [facility] - | | | GLUCOSE, [...] AMES | [address] | [place], [place] | | | [facility] CARE | [address] | [address] | | | TESTS | | | [...] AMES | [address] | [place], [place] | | | [facility] [facility]ARE | [address] | [address] | | | TESTS | | | [...] [facility] | [address] | [place], [place] | | | [facility] | [address] | [address] | | | TESTS | | | [...] [facility] | [address] | [place], [place] | | | [facility] | [facility] | [address] | | | TESTS | | | [...] | | POC | | mmol/L | [facility] | | | | | [...] AMES | [address] | [place], [place] | | | [facility]ARE | [facility] | [address] | | | TESTS | | | [...] [facility] | [address] | [place], [place] | | | [facility]ARE | [address] | [address] | | | TESTS | | | [...] [facility] | [address] | [place], [place] | | | [facility] | [facility] | [address] | | | TESTS | | | [...] AMES | [address] | [place], [place] | | | [facility]ARE | [facility] | [address] | | | TESTS | | | [...] [facility] | [address] | [place], [place] | | | [facility] | [address] | [address] | | | TESTS | | | [...] [facility] | [address] | [place], [place] | | | [facility] CARE | [address] | [address] | | | TESTS | | | [...] | [facility] | [address] | [place], [place] | | | [facility] CARE | [address] | [address] | | | TESTS | | | [...] + | [facility] | [address] | [place] [address] | | | CLAIRE, | [address] [...] (H) | 60 - 99 mg/dL | [facility] - | | | GLUCOSE, [...] [facility] | [address] | [place], [place] | | | [facility] CARE | [address] | [address] | | | TESTS | | | [...] [facility] | [address] | [place] [address] | | | SERVICES, | [address] [...] [facility] | [address] | [place] [address] | | | SERVICES, | [address] [...] [facility] | [address] | [place] [address] | | | SERVICES, CORE | CLARENCE [...] | + + + + + | [facility] | [address] | [place] [address] | | | SERVICES, CORE | PARK [...] [facility] | [address] | [place] [address] | | | SERVICES, CORE | PARK [...] | + + + + + | [facility] | [address] | [place] [address] | | | SERVICES, CORE | PARK [...] | | LABORATORY | | | [facility] [place] | | | SERVICES, | | [...] | + + + + + | [facility] | [address] | [place] [address] | | | LYDIA RANGEL | CLARENCE [...] view image for the detailed interpretation from [employer] results. | CARDIOLOGY | + + + + + + + + | Performing | Address | City/State/Zipcode | Phone Number | | Organization | | | | + + + + + | [facility] | [address] | [facility] [place] | | | CARDIOLOGY | [address] | [address] | | + + + + + [...] [facility] | [address] | [place] [address] | | | SERVICES, CORE | PARK [...] [facility] | [address] | [place] [address] | | | SERVICES, CORE | CLARENCE [...] | 1 tablet | | | | vtugwehilg-llbhsjxjrmfik-ecbeuwse | | 13 8:02 | | | [...] | | | | First dose on Thu11/07/12 at | | | | | | [...] 13 7:36 | | | | | FIXED INCOME TRADING VICE PRESIDENT infusion intravenous, | | PM PDT | [...] PDT | | | | | Until [facility] 11/11/12 at 0702 | | | [...] | 1 | | | | (aka KEN) capsule 1 Cap 1 | | 13 [...] | +---+---+ + +---------+ +------+--------+---+ | nalbuphine (akseven [place]) | New Bag | 11/11/19 | [...] | | | | | 1420, Until 11/12/12 at 2148, | | | | | [...] | | | | | NEEDED, Starting Thu11/11/12 at | | | | | | [...] + +-------+ + +---+---+ | senna-docusate (aka VIMAL S) | Given | 11/13/19 | [...] +---+---+ + +-------+ +--------+---+---+ | traZODone (aka NUPURYREL) tablet | Given | 11/12/19 | 150 [...]
--- OUTSIDE RECORDS SUMMARY | ~2019-06-01 | XMS | Encounter Summary ---
Demographics + + + | Address | [address] | | | [place] [address] | + + + | Home Phone [...] [place], [place] | | | | | [address] | | + + + + + | Ellie Vang | ECON | Unknown | | + + + + + Care Team Providers + +------+ + | Care Rejogger Name | Role | Phone | + [...] Lesly | | | | | Mailcode: [place] | [place], [place] | | | | | [facility] and | [address] | | | | | [facility] [address] | [phone] | | | | | [place], [place] | | | | | | [address] | | | | | | [phone] | | | +--------+ + + + [...] Rd | | | | | | [place], [place] | | | | | | [address] | | | | | | [phone] | | | | | | | | +--------+ + + + + | 06/24/ | Surgery | Surgery | Chilo | OPEN VENTRAL HERNIA | | 2018 | | | MD Jorje [address] | REPAIR WITH | | | | | [address] | BIOLOGICAL MESH | | | | | [place], [place] | | | | | | [address] | | | | | | [phone] | | | | | | | | +--------+ + + + + | 06/30/ | Office | Cardiology | Randell Franks, | | | 2018 | Visit | | [address] | | | | | | [address] [place], [place] | | | | | | [address] | | | | | | [phone] | | | | | | | | +--------+ + + + + documented as of this encounter Visit Diagnoses Not on filedocumented in this encounter"
--- OUTSIDE RECORDS SUMMARY | ~2019-06-01 | XMS | Encounter Summary ---
Demographics + + + | Address | [address] | | | [place] [address] | + + + | Home Phone [...] + | Katalina Padilla | ECON | [address] | | | | | [place], [place] | | | | | [address] | | + + + + + | Ellie Vang | ECON | Unknown | | + + + + + Care Team Providers + +------+ + | Care Testing Projects Administrator Name | Role | Phone | + +------+ + | Fadi Goodrich DO | PCP | | + +------+ + Encounter Details +--------+ + + + + | Date | Type | Department | Care Team | Description | +--------+ + + + + | 02/24/ | Abstract | Cardiology | Randell Franks, | | | 2015 | | Preventive at [facility] | MD [address] | | | | | [address] | Ave [place], [place] | | | | | Mailcode: CH9A | [address] | | | | | [facility] | [phone] | | | | | and Healing, | | | | | | [address] | | | | | | [place], [place] | | | | | | [address] | | | | | | [phone] | | | +--------+ + + + [...] Rd | | | | | | [place], [place] | | | | | | [address] | | | | | | [phone] | | | | | | | | +--------+ + + + + | 06/24/ | Surgery | Surgery | Chilo, | OPEN VENTRAL HERNIA | | 2018 | | | MD Jorje [address] | REPAIR WITH | | | | | [address] | BIOLOGICAL MESH | | | | | [place], [place] | | | | | | [address] | | | | | | [phone] | | | | | | | | +--------+ + + + + | 06/30/ | Office | Cardiology | Randell Franks, | | | 2019 | Visit | | [address] | | | | | | [address] [place], [place] | | | | | | [address] | | | | | | [phone] | | | | | | | | +--------+ + + + + documented as of this encounter Visit Diagnoses Not on filedocumented in this encounter"
--- OUTSIDE RECORDS SUMMARY | ~2019-06-01 | XMS | Encounter Summary ---
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 documented in this [...] times daily. , Disp: , Rfl: CALCIUM CRB&QPD-T2-FKG08-GENIS ORAL, Take 2 tablets by mouth two [...] Dr. Andie Brian Incisional hernia repair 03/01/2015 [facility]/ Dr. Cantu. Primary fascial [...] History Narrative Updated 11/09/15 She lives in [place] with her mother and her sister (also her caregiver) lives in an apa rtment/duplex below. She has 2 grandchildren (age 4 and 7) who live with her daughter and son-in-law Her boyfriend lives in [place] HFpEF, DM2, HTN, Sleep Apnea (unable to [...] program here and refer her to our prevention specialist who also has expertise in physical [...] Increase torsemide to pre-surgical dose +Take acid division chief for first 3 mos, then wean off [...] she will make an appointment with her Pie Icer Machine to discuss insulin dosing and CBGs 10. [...] to POC and will call or [facility] if any issues. Start time 15:35, end time 15:55. I spent a total of 20 minutes face to face with this pat ient. Over 50% of visit was in counseling. ~ 10 minutes of additional time spent reviewing chart prior to visit and documenting after this visit. Ronna Clarke DNP ACNP SOFTWARE DESIGN MANAGER Bariatric Surgery Nurse Practitioner [facility] | [address] | [place], [place] | [address] | documented in this e ncounter Plan [...] 2019 | Encounter | | MD Jorje [address] | | | | | | [address] | | | | | | [place], [place] | | | | | | [address] | | | | | | [phone] | | | | | | | | +--------+ + + + + | 06/24/ | Surgery | Surgery | Chilo, | OPEN VENTRAL HERNIA | | 2018 | | | MD Jorje [address] | REPAIR WITH | | | | | [address] | BIOLOGICAL MESH | | | | | [place], [place] | | | | | | [address] | | | | | | [phone] | | | | | | | | +--------+ + + + + | 06/30/ | Office | Cardiology | Randell Franks, | | | 2018 | Visit | | [address] | | | | | | Ave [place], [place] | | | | | | [address] | | | | | | [phone] | | | | | | | [...] + | [facility] | [address] | [place] [address] | | | [place] | | | | + + + [...] Essential hypertension, benign | + + | AMAAR treated with BiPAP | + + | [...]
--- OUTSIDE RECORDS SUMMARY | ~2019-06-01 | XMS | Encounter Summary ---
Demographics + + + | Address | [address] | | | [place] [address] | + + + | Home Phone [...] [place], [place] | | | | | [address] | | + + + + + | Ellie Vang | ECON | Unknown | | + + + + + Care Team Providers + +------+ + | Care Public Space Attendant Name | Role | Phone | [...] [facility] | | | with PETROLEUM BLENDING PLANT OPERATOR | | hypertension | [address] | [address] | | | | | Right | [address] | [address] | | | | | heart | [place], [place] | Mailcode: | | | | | failure | [address] | Center for | | | | | ([facility]) Type | Phone: | Health and | | | | | 2 diabetes | [phone] | Healing, | | | | | mellitus | Fax: | Building 2 | | | | | without | [phone] | [place], [place] | | | | | complication | | [address] | | | | | , with | | Phone: | | | | | long-term | | | | | | | current use | | Fax: | | | | | of insulin | | [phone] | | | | | ([facility]) | | | | | | | [...] | 2018 | Visit | Center at [facility] [address] | BMI of 70 and over, | | | | [address] | [place], [place] | adult ([facility]) (Primary | | | | Mailcode: Center | [address] | Dx); Diabetes | | | | for [facility] and | [phone] | mellitus type 2 | | | | [facility], Building 2 | | without retinopathy | | | | [place], [place] | | ([facility]); | | | | [address] | | Intertriginous | | | | [phone] | | candidiasis; PCOS | | | [...] 10/30/2017 10:00 AM PDTPlease visit with our [facility] Cancer Registry Coordinator (RD) for instructions about your Bariatric diet, assistance with calorie c ounts, tips and tricks for working with your diet restrictions, and recipes after bariatric surgery. Daily yogurt; even just 1 tablespoon twice a day will provide enough probiotics to optimize digestion. Try to use a high-quality, probiotic-dense yogurt (eg Zaria's, Kobifield, Stacie lala Kefir, Yarding Engineer Duke's Togolese Yogurt). Remember to chew your food well, [...] to the healing stomach. There are also fdc complications of poor wound healing and gastric [...] Brian Incisional hernia repair 03/01/2015 [facility]/ Dr. Cantu. Primary fascial closure and [...] 1 tablet by mouth once daily CALCIUM CRB&NRJ-T0-DKS04-GENIS ORAL Take 2 tablets by mouth two [...] History Narrative Updated 11/09/15 She lives in [place] with her mother and her sister (also her caregiver) lives in an artment/duplex below. She has 2 grandchildren (age 4 and 7) who live with her daughter and son-in-law Her boyfriend lives in [place] HFpEF, DM2, HTN, Sleep Apnea (unable to [...] program here and refer her to our facilities specialist who also has expertise in physical [...] a 4-5% rate of reoperation over the software computer specialist (i.e. years), as well as other [...] and may approach 5%. We reviewed the [facility] consent form. We discussed that we [...] Rd | | | | | | [place], [place] | | | | | | [address] | | | | | | [phone] | | | | | | | | +--------+ + + + + | 06/24/ | Surgery | Surgery | Chilo, | OPEN VENTRAL HERNIA | | 2018 | | | MD Jorje [address] | REPAIR WITH | | | | | [address] | BIOLOGICAL MESH | | | | | [place], [place] | | | | | | [address] | | | | | | [phone] | | | | | | | | +--------+ + + + + | 06/30/ | Office | Cardiology | Randell Franks, | | | 2019 | Visit | | [address] | | | | | | [place], [place] | | | | | | [address] | | | | | | [phone] | | | | | | | [...] HEALTH CARE) | | | | | | 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| | 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 ([facility]) | | | | | | AMARA treated with | | | | | | BiPAP Chronic | | | | | | diastolic heart | | | | | | failure ([facility]) | | | | | | Essential [...] | | | | | determined by [employer] | | | | | | Laboratories. See | | | | | | Compliance Statement B: | | | | | | [employer]/CSPerformed | | | | | | by [facility],[address] | | | | | | [address] [facility],[place] | | | | | | [address] | | | | | | [phone]. | | | | | | Ismael [...] [facility] | [address] | [place], [place] | | | [facility] | | [address] | | + + + + + [...] | | | LABORATORY | | | [place] | | | SERVICES, | | | [...] the MDRD equation recommended by the | [facility] | | National Kidney Disease Education [...] + + + + | [facility] | [address] [facility] | [place] [address] | | | SERVICES, CORE | PARK [...] NKECHI ROBERTS | [address] | [place] [address] | | | SERVICES, CORE | PARK [...] [facility] | [address] | [place] [address] | | | SERVICES, CORE | CLARENCE [...] | [facility] | [address] [facility] | [place] [address] | | | SERVICES, CORE | PARK [...] [facility] | [address] | [place] [address] | | | SERVICES, CORE | PARK [...] [facility] | [address] | [place] [address] | | | SERVICES, LYDIA | CLARENCE [...]
--- OUTSIDE RECORDS SUMMARY | ~2019-06-01 | XMS | Encounter Summary ---
Demographics + + + | Address | [address] | | | [place] [address] | + + + | Home Phone [...] + | Katalina Padilla | ECON | [address] | | | | | [place], [place] | | | | | [address] | | + + + + + | Ellie Vang | ECON | Unknown | | + + + + + Care Team Providers + +------+ + | Care Gamemaster Name | Role | Phone | + +------+ + | Kenyatta Cardenas MD | PCP | | + +------+ + Encounter Details +--------+ + + + + | Date | Type | Department | Care Team | Description | +--------+ + + + + | 05/03/ | Inside | NKECHI DUMAS at [facility] | Ion Pandey, | | | 2018 | Referral | [address] | MD [address] | | | | Order | [address] Mailcode: | [place], [place] | | | | | [address] [place] [address] for | [address] | | | | | Health and Healing, | [phone] | | | | | Building [address] | | | | | | [place], [place] | | | | | | [address] | | | | | | [phone] | | | +--------+ + + + [...] [place] | | | | | | [address] | | | | | | [phone] | | | | | | | | +--------+ + + + + | 06/24/ | Surgery | Surgery | Chilo, | OPEN VENTRAL HERNIA | | 2018 | | | MD [address] | REPAIR WITH | | | | | [address] | BIOLOGICAL MESH | | | | | [place], [place] | | | | | | [address] | | | | | | [phone] | | | | | | | | +--------+ + + + + | 06/30/ | Office | Cardiology | Randell Franks, | | | 2019 | Visit | | [address] | | | | | | [place], [place] | | | | | | [address] | | | | | | [phone] | | | | | | | [...]
--- OUTSIDE RECORDS SUMMARY | ~2019-06-01 | XMS | Encounter Summary ---
Demographics + + + | Address | [address] | | | [place] [address] | + + + | Home Phone [...] [place], [place] | | | | | [address] | | + + + + + | Ellie Vang | ECON | Unknown | | + + + + + Care Team Providers + +------+ + | Care Veneer Sorter Name | Role | Phone | + +------+ + | Kenyatta Cardenas MD | PCP | | + +------+ + Encounter Details +--------+ + + + + | Date | Type | Department | Care Team | Description | +--------+ + + + + | 05/03/ | Inside | NKECHI DUMAS at [facility] | Ion Pandey, | | | 2018 | Referral | [address] | MD [address] | | | | Order | [address] Mailcode: | [place], [place] | | | | | [address] [place] [address] for | [address] | | | | | Health and Healing, | [phone] | | | | | Building [address] | | | | | | [place], [place] | | | | | | [address] | | | | | | [phone] | | | +--------+ + + + [...] [place] | | | | | | [address] | | | | | | [phone] | | | | | | | | +--------+ + + + + | 06/24/ | Surgery | Surgery | Chilo, | OPEN VENTRAL HERNIA | | 2018 | | | MD [address] | REPAIR WITH | | | | | [address] | BIOLOGICAL MESH | | | | | [place], [place] | | | | | | [address] | | | | | | [phone] | | | | | | | | +--------+ + + + + | 06/30/ | Office | Cardiology | Randell Franks, | | | 2019 | Visit | | [address] | | | | | | [place], [place] | | | | | | [address] | | | | | | [phone] | | | | | | | [...]
--- OUTSIDE RECORDS SUMMARY | ~2019-06-01 | XMS | Encounter Summary ---
Demographics + + + | Address | [address] | | | [place] [address] | + + + | Home Phone [...] + | Katalina Padilla | ECON | [address] | | | | | [place], [place] | | | | | [address] | | + + + + + | Ellie Vang | ECON | Unknown | | + + + + + Care Team Providers + +------+ + | Care Botany Teacher Name | Role | Phone | [...] | | | | | | [place] [address] | | | +--------+ + + + [...] Rd | | | | | | [place], [place] | | | | | | [address] | | | | | | [phone] | | | | | | | | +--------+ + + + + | 06/24/ | Surgery | Surgery | Chilo, | OPEN VENTRAL HERNIA | | 2019 | | | MD Jorje [address] | REPAIR WITH | | | | | [address] | BIOLOGICAL MESH | | | | | [place] | | | | | | [address] | | | | | | [phone] | | | | | | | | +--------+ + + + + | 06/30/ | Office | Cardiology | Randell Franks, | | | 2018 | Visit | | [address] | | | | | | [place] | | | | | | [address] | | | | | | [phone] | | | | | | | | +--------+ + + + + documented as of this encounter Visit Diagnoses Not on filedocumented in this encounter"
--- OUTSIDE RECORDS SUMMARY | ~2019-06-01 | XMS | Encounter Summary ---
Demographics + + + | Address | [address] | | | [place] [address] | + + + | Home Phone [...] [place], [place] | | | | | [address] | | + + + + + | Ellie Vang | ECON | Unknown | | + + + + + Care Team Providers + +------+ + | Care Disc Recordist Name | Role | Phone | + +------+ + | Fadi Goodrich DO | PCP | | + +------+ + Encounter Details +--------+ + + + + | Date | Type | Department | Care Team | Description | +--------+ + + + + | 06/02/ | Telephone | Digestive Health | Ronna Clarke, | | | 2017 | | Center at [facility] [address] | ACNP [address] | | | | | [address] | Ave [place], [place] | | | | | Mailcode: [place] | [address] | | | | | for Health and | [phone] | | | | | [facility] 2 | | | | | | [place], [place] | | | | | | [address] | | | | | | | [...] Rd | | | | | | [place], [place] | | | | | | [address] | | | | | | [phone] | | | | | | | | +--------+ + + + + | 06/24/ | Surgery | Surgery | Chilo | OPEN VENTRAL HERNIA | | 2018 | | | MD [address] | REPAIR WITH | | | | | [address] | BIOLOGICAL MESH | | | | | [place], [place] | | | | | | [address] | | | | | | [phone] | | | | | | | | +--------+ + + + + | 06/30/ | Office | Cardiology | Randell Franks, | | | 2018 | Visit | | [address] | | | | | | [place] | | | | | | [address] | | | | | | [phone] | | | | | | | | +--------+ + + + + documented as of this encounter Visit Diagnoses Not on filedocumented in this encounter"
--- OUTSIDE RECORDS SUMMARY | ~2019-06-01 | XMS | Encounter Summary ---
Demographics + + + | Address | [address] | | | [place] [address] | + + + | Home Phone [...] [place], [place] | | | | | [address] | | + + + + + | Ellie Vang | ECON | Unknown | | + + + + + Care Team Providers + +------+ + | Care Time Lock Expert Name | Role | Phone | [...] | | | | Mailcode: Center | [place], [place] | with insulin therapy | | | | for Health and | [address] | (HCC) | | | | [facility] 2 | [phone] | | | | | [place], [place] | | | | | | [address] | | | | | | [phone] | | | +--------+---------+ + + + [...] of Visit: 1:30 to 1:55 (25 minutes leat-oo-hdbf with patient). Pt seen tog ether with Rossana Espinoza RD (training) SUBJECTIVE: Working with RN to get access to [employer] water exercises. States she was down to 374lbs by following LRD but with complications (n/v, fainting) - need to obtain records from PCP [facility]. Food Allergies: No Current Physical Activity: Nothing - plans to start swimming this week Diet Recall [place] (100kcal) + Activia Light - 60kcal Atkins [...] post-surgery diet progression. 4. Call or send [employer] message to dietitian with any questions. Contact information was provided. Follow up with dietitian via telephone 1 week after beginning water exercises for weight ch addie. Yuli Childs RD, [facility], [place] Pager# [phone] Rossana Espinoza MS, RD Pgr #[id number] documented in this enco unter Plan of [...] Rd | | | | | | [place] | | | | | | [address] | | | | | | [phone] | | | | | | | | +--------+ + + + + | 06/24/ | Surgery | Surgery | Chilo, | OPEN VENTRAL HERNIA | | 2018 | | | MD [address] | REPAIR WITH | | | | | [address] | BIOLOGICAL MESH | | | | | [place] | | | | | | [address] | | | | | | [phone] | | | | | | | | +--------+ + + + + | 06/30/ | Office | Cardiology | Randell Franks, | | | 2019 | Visit | | [address] | | | | | | [place], [place] | | | | | | [address] | | | | | | [phone] | | | | | | | | +--------+ + + + + documented as of this encounter Procedures + +--------+ + + + | Procedure Name | Priori | Date/Time | Associated Diagnosis | Comments | | | ty | | | | + +--------+ + + + | AL MNT RE-ASSESSMNT | Routin | 12/27/2014 | Morbid obesity | | | X15MIN | e | 8:17 AM | ([facility]) Diabetes | | | | | PDT | mellitus with | | | | | | insulin therapy | | | | | | ([facility]) | | + +--------+ + + + documented in this encounter Visit Diagnoses + + | Diagnosis | + + | Morbid obesity ([facility]) - Primary Morbid obesity | + + | Diabetes mellitus with insulin therapy ([facility]) | + + documented in this encounter
--- OUTSIDE RECORDS SUMMARY | ~2019-06-01 | XMS | Encounter Summary ---
Demographics + + + | Address | [address] | | | [place] [address] | + + + | Home Phone [...] [place], [place] | | | | | [address] | | + + + + + | Ellie Vang | ECON | Unknown | | + + + + + Care Team Providers + +------+ + | Care Earth Science Technician Name | Role | Phone [...] | | at [facility] [address] | ROTARY DUMP OPERATOR [address] [facility] | | | | [place] Mailcode: | Ave [place], [place] | | | | | [address] | [address] | | | | | Health and Healing, | [phone] | | | | | | | | | | | [place], [place] | | | | | | [address] | | | | | | [phone] | | | +--------+ + + + [...] [place] | | | | | | [address] | | | | | | [phone] | | | | | | | | +--------+ + + + + | 06/24/ | Surgery | Surgery | Chilo | OPEN VENTRAL HERNIA | | 2018 | | | MD [address] | REPAIR WITH | | | | | [address] | BIOLOGICAL MESH | | | | | [place], [place] | | | | | | [address] | | | | | | [phone] | | | | | | | | +--------+ + + + + | 06/30/ | Office | Cardiology | Randell Franks, | | | 2019 | Visit | | [address] | | | | | | [place], [place] | | | | | | [address] | | | | | | [phone] | | | | | | | | +--------+ + + + + documented as of this encounter Visit Diagnoses Not on filedocumented in this encounter"
--- OUTSIDE RECORDS SUMMARY | ~2019-06-01 | XMS | Encounter Summary ---
Demographics + + + | Address | [address] | | | [place] [address] | + + + | Home Phone [...] [place], [place] | | | | | [address] | | + + + + + | Ellie Vang | ECON | Unknown | | + + + + + Care Team Providers + +------+ + | Care Geographic Information Systems Director Name | Role | Phone | [...] UPPER ENDOSCOPY | | 2018 | | [facility] | [address] | | | | | Admitting Desk | [place], [place] | | | | | Located on the | [address] | | | | | floor [address] [facility] | [phone] | | | | | [address] | | | | | | [place], [place] | | | | | | [address] | | | +--------+---------+ + + + [...] the endoscopy department toll free ext. [phone] or After business hours or on weekends and holiday Hospital Occupational Physician toll free ext. [phone] and have the GI doctor soil conservation teacher paged. The provider who performed your procedure [...] | | 0 | | | | CRB&VPB-J5-QHM59-GEN | mouth two times | | | [...] 2:35 PM PST PRE PROCEDURE NOTE: MR# [id number] Subjective: Elzbieta Cristina is a 43 y.o. [...] Rd | | | | | | [place], [place] | | | | | | [address] | | | | | | [phone] | | | | | | | | +--------+ + + + + | 06/24/ | Surgery | Surgery | Chilo, | OPEN VENTRAL HERNIA | | 2018 | | | MD [address] | REPAIR WITH | | | | | [address] | BIOLOGICAL MESH | | | | | [place], [place] | | | | | | [address] | | | | | | [phone] | | | | | | | | +--------+ + + + + | 06/30/ | Office | Cardiology | Randell Franks, | | | 2019 | Visit | | [address] | | | | | | [place], [place] | | | | | | [address] | | | | | | [phone] | | | | | | | [...] -----+ | MRN: | [facility] | | [id number] Date: 06/23/2018Patient Name: Elzbieta Curtis #: | MORGAN Y | | [id number] of : 1975CSN: [id number] Type: | | | AmbulatoryRoom: SORProcedure: Upper GI | | | endoscopyIndications: Nausea with vomiting, Status post | | | Ahuo-yn-JPmphdryfk: KALEB WILCOX MD (Doctor), JOSE | | | NASIMA, Winder Hand | | | (Winder Hand)Referring MD: DANIELLE GARCÍAPRemateusz | | | Provider: [...] | | | The Olympus [id number]-[id number] Gastroscope #[id number] was | | | introduced through the [...] endoscope without resistance. The | | | ffcpt-xl-tctynar limb was characterized by healthy appearing | [...] Initiated On: | | | 06/23/2018 3:58 [facility] Letter to: FADI GOODRICH, DO | | | - Repeat upper endoscopy in 1-2 weeks for repeat | | | dilation if symptoms persist. | | |KALEB WILCOX MD | | |06/23/2018 5:17:38 PM | | |This report has been signed electronically. | | |Number of Addenda: 0 | | |Note Initiated On: 06/23/2018 3:58 PM | | | Letter to: | | | FADI GOODRICH, DO | | + +--------- -----+ + [...] + + + | NKECHI AMES | [address] | [place], [place] | | | [address] POINT OF CARE | [address] | [address] | | | TESTS | | | [...] intravenous, POSTPROCEDURE PRN, | | | Starting [facility] 06/23/18 at 1532, | | | Until [facility] 06/24/18 at 0027, | | | hypopnea | | + +---+ | | | + +---+ | ondansetron (ZOFRAN) injection | | | 4 mg 4 mg, intravenous, | | | POSTPROCEDURE PRN, 1 dose, | | | Starting [facility] 06/23/18 at 1532, | | | Until [facility] 06/24/18 at 0027, | | | [...] | | | PRN, 1 dose, Starting Thu | | | | | | [...]
--- OUTSIDE RECORDS SUMMARY | ~2019-06-01 | XMS | Encounter Summary ---
Demographics + + + | Address | [address] | | | [place] [address] | + + + | Home Phone [...] [place], [place] | | | | | [address] | | + + + + + | Ellie Vang | ECON | Unknown | | + + + + + Care Team Providers + +------+ + | Care Licensed Insurance Agent Name | Role | Phone | [...] Rd | | | | | | [place], [place] | | | | | | [address] | | | | | | [phone] | | | | | | | | +--------+ + + + + | 06/24/ | Surgery | Surgery | Chilo, | OPEN VENTRAL HERNIA | | 2018 | | | MD Jorje [address] | REPAIR WITH | | | | | [address] | BIOLOGICAL MESH | | | | | [place], [place] | | | | | | [address] | | | | | | [phone] | | | | | | | | +--------+ + + + + | 06/30/ | Office | Cardiology | Randell Franks, | | | 2018 | Visit | | [address] | | | | | | [place], [place] | | | | | | [address] | | | | | | [phone] | | | | | | | | +--------+ + + + + documented as of this encounter Visit Diagnoses Not on filedocumented in this encounter"
--- OUTSIDE RECORDS SUMMARY | ~2019-06-01 | XMS | Encounter Summary ---
Demographics + + + | Address | [address] | | | [place] [address] | + + + | Home Phone [...] + | Katalina Padilla | ECON | [address] | | | | | [place], [place] | | | | | [address] | | + + + + + | Ellie Vang | ECON | Unknown | | + + + + + Care Team Providers + +------+ + | Care Coater Operator Insulation Board Name | Role | Phone | + [...] Order | [address] | [place], [place] | | | | | [address] | [address] | | | | | Rd Mailcode: UHN83 | [phone] | | | | | Francesco Peres | | | | | | [address] [place], [place] | | | | | | [address] | | | | | | [phone] | | | +--------+ + + + [...] Rd | | | | | | [place], [place] | | | | | | [address] | | | | | | [phone] | | | | | | | | +--------+ + + + + | 06/24/ | Surgery | Surgery | Chilo | OPEN VENTRAL HERNIA | | 2018 | | | MD [address] | REPAIR WITH | | | | | [address] | BIOLOGICAL MESH | | | | | [place], [place] | | | | | | [address] | | | | | | [phone] | | | | | | | | +--------+ + + + + | 06/30/ | Office | Cardiology | Randell Franks, | | | 2019 | Visit | | MD [address] | | | | | | [address] [place], [place] | | | | | | [address] | | | | | | [phone] | | | | | | | | +--------+ + + + + documented as of this encounter Results EGD (06/23/2018 3:58 PM PST) + + | Specimen | + + | | + + + +--------- -----+ | Narrative | Roseanna parikh At | + +--------- -----+ | MRN: | [facility]KE[facility]I | | [id number] Date: 06/23/2018Patient Name: Elzbieta Curtis #: | ENDOSCOP Y | | [id number] of : 1975CSN: [id number] Type: | | | AmbulatoryRoom: SORProcedure: Upper GI | | | endoscopyIndications: Nausea with vomiting, Status post | | | Zgww-qo-KSaspjjmoi: KALEB MILES MD (Doctor)JOSE | | | NASIMA, Hat Trimmer | | | (Hat Trimmer)Referring MD: DANIELLE GARCÍAPRemateusz | | | Provider: [...] | | | The Olympus [id number] Gastroscope #[id number] was | | | introduced through the [...] endoscope without resistance. The | | | zyubl-ty-lfxkvku limb was characterized by healthy appearing | [...] | | | 06/23/2018 3:58 [facility] Letter to: RADHA MICHAEL DO | | [...]
--- OUTSIDE RECORDS SUMMARY | ~2019-06-01 | XMS | Encounter Summary ---
Demographics + + + | Address | [address] | | | [place] [address] | + + + | Home Phone [...] [place], [place] | | | | | [address] | | + + + + + | Ellie Vang | ECON | Unknown | | + + + + + Care Team Providers + +------+ + | Care Forest Aide Name | Role | Phone | [...] 2015 | | Preventive at [facility] | MD [address] | | | | | [address] | Ave [place], [place] | | | | | Mailcode: CH9A | [address] | | | | | [facility] | [phone] | | | | | and Healing, | | | | | | [address] | | | | | | [place], [place] | | | | | | [address] | | | | | | [phone] | | | +--------+ + + + [...] Rd | | | | | | [place], [place] | | | | | | [address] | | | | | | [phone] | | | | | | | | +--------+ + + + + | 06/24/ | Surgery | Surgery | Chilo, | OPEN VENTRAL HERNIA | | 2018 | | | MD Jorje [address] | REPAIR WITH | | | | | [address] | BIOLOGICAL MESH | | | | | [place], [place] | | | | | | [address] | | | | | | [phone] | | | | | | | | +--------+ + + + + | 06/30/ | Office | Cardiology | Randell Franks, | | | 2019 | Visit | | MD [address] | | | | | | [address] [place], [place] | | | | | | [address] | | | | | | [phone] | | | | | | | | +--------+ + + + + documented as of this encounter Visit Diagnoses Not on filedocumented in this encounter"
--- OUTSIDE RECORDS SUMMARY | ~2019-06-01 | XMS | Encounter Summary ---
Demographics + + + | Address | [address] | | | [place] [address] | + + + | Home Phone [...] [place], [place] | | | | | [address] | | + + + + + | Ellie Vang | ECON | Unknown | | + + + + + Care Team Providers + +------+ + | Care Research/Program Director Name | Role | Phone | [...] Rd | | | | | | [place], [place] | | | | | | [address] | | | | | | [phone] | | | | | | | | +--------+ + + + + | 06/24/ | Surgery | Surgery | Chilo, | OPEN VENTRAL HERNIA | | 2018 | | | MD Jorje [address] | REPAIR WITH | | | | | [address] | BIOLOGICAL MESH | | | | | [place], [place] | | | | | | [address] | | | | | | [phone] | | | | | | | | +--------+ + + + + | 06/30/ | Office | Cardiology | Randell Franks, | | | 2018 | Visit | | [address] | | | | | | [place], [place] | | | | | | [address] | | | | | | [phone] | | | | | | | | +--------+ + + + + documented as of this encounter Visit Diagnoses Not on filedocumented in this encounter"
--- OUTSIDE RECORDS SUMMARY | ~2019-06-01 | XMS | Encounter Summary ---
Demographics + + + | Address | [address] | | | [place] [address] | + + + | Home Phone [...] + | Katalina Padilla | ECON | [address] | | | | | [place], [place] | | | | | [address] | | + + + + + | Ellie Vang | ECON | Unknown | | + + + + + Care Team Providers + +------+ + | Care Independent Freight Agent Name | Role | Phone | [...] | [facility] | | | with INVASIVE CARDIOLOGIST | | hypertension | [address] | [address] | | | | | Right | [address] | [address] | | | | | heart | [place], [place] | Mailcode: | | | | | failure | [address] | Center for | | | | | ([facility]) Type | Phone: | Health and | | | | | 2 diabetes | [phone] | Healing, | | | | | mellitus | Fax: | [address] | | | | | without | [phone] | [place], [place] | | | | | complication | | [address] | | | | | , with | | Phone: | | | | | long-term | | | | | | | current use | | Fax: | | | | | of insulin | | [phone] | | | | | ([facility]) | | | | | | [...] | | 2 diabetes | JEAN, | [place], [place] | | | | | mellitus | [place] [address] | [address] | | | | | without | Phone: | Phone: | | | | | complication | [phone] | [phone] | | | | | (HCC) | Fax: | Fax: | | | | | Procedures | [phone] | [phone] | | | | | ME EST | | | | | | [...] | 2017 | Visit | Preventive at [facility] | [address] | hypertension | | | | [address] | Ave [place], [place] | (Primary Dx); Right | | | | Mailcode: [facility] | [address] | heart failure (HCC); | | | | [facility] | [phone] | Type 2 diabetes | | | | and Healing, | | mellitus without | | | | [address] | | complication, with | | | | [place], [place] | | long-term current | | | | [address] | | use of insulin (HCC) | | | | [phone] | | | +--------+---------+ + + + [...] 81 mg by mouth once daily. CALCIUM CRB&LNK-A3-SCM28-GENIS ORAL Take 2 tablets by mouth two [...] then she has worked closely with her [facility] doctor and has been been able [...] 12 CREATININE PLASMA (LAB) 0.79 EGFR - GUAMANIAN >60 EGFR NON -GUAMANIAN >60 GLUCOSE, PLASMA (LAB) 170 (H) CALCIUM, [...] | 2018 | Encounter | | MD Jorej [address] | | | | | | [address] | | | | | | [place], [place] | | | | | | [address] | | | | | | [phone] | | | | | | | | +--------+ + + + + | 06/24/ | Surgery | Surgery | Chilo, | OPEN VENTRAL HERNIA | | 2018 | | | MD Jorje [address] | REPAIR WITH | | | | | [address] | BIOLOGICAL MESH | | | | | [place], [place] | | | | | | [address] | | | | | | [phone] | | | | | | | | +--------+ + + + + | 06/30/ | Office | Cardiology | Randell Franks, | | | 2018 | Visit | | [address] | | | | | | Ave [place], [place] | | | | | | [address] | | | | | | [phone] | | | | | | | [...] | + + + + + | [facility] | [address] | [place] [address] | | | CLAIRE, LYDIA | CLARENCE [...] [facility] | [address] | [place], [place] | | | SERVICES, LIPID | [address] | [address] | | + + + + + [...] albumin should be considered for monitoring exterminator termite | LABORATORY | | glycemic control [...] [facility] | [address] | [place] [address] | | | SERVICES, SPECIAL | PARK [...] | | | LABORATORY | | | GUAMANIAN | | | SERVICES, | | | [...] [facility] | [address] | [place] [address] | | | SERVICES, CORE | PARK [...]
--- OUTSIDE RECORDS SUMMARY | ~2019-06-01 | XMS | Encounter Summary ---
Demographics + + + | Address | [address] | | | [place] [address] | + + + | Home Phone [...] + | Katalina Padilla | ECON | [address] | | | | | [place], [place] | | | | | [address] | | + + + + + | Ellie Vang | ECON | Unknown | | + + + + + Care Team Providers + +------+ + | Care Programmer Analyst Health It Name | Role | Phone | + [...] Diabetes & | Morbid | Kathy M, PASSENGER BRAKEMAN | [address] | | | | Metabolism | obesity | [address] | [address] | | | | | (HCC) | [address], | [address] | | | | | Procedures | [address] | Physician's | | | | | CONSULT TO | [place], [place] | [place] | | | | | ENDO | [address] | Physician's | | | | | [address] | Phone: | Pavilion | | | | | [address] | [phone] | [place], [place] | | | | | | Fax: | [address] | | | | | | [phone] | Phone: | | | | | | | [phone] | | | | | | | Fax: | | | | | | | [phone] | +--------+--------+ + + + + Encounter [...] | | Center at [facility] | [address] [place], [place] | ([facility]) (Primary Dx); | | | | Pav[address] | [address] | Type 2 diabetes | | | | [address] | [phone] | mellitus ([facility]); AMARA | | | | Physician's | | (obstructive sleep | | | | Pavilion | | apnea); Morbid | | | | Physician's Pavilion | | obesity ([facility]); | | | | [place], [place] | | Edema; GERD | | | | [address] | | (gastroesophageal | | | | [phone] | | reflux disease) | +--------+---------+ + [...] Goodrich DO Referring physician: Kathy Feldman, KALYAN [address] [place] [address] HPI: Dylan is a 38 y.o. female [...] 9 CREATININE PLASMA (LAB) 0.71 EGFR - EQUATORIAL GUINEAN >60 EGFR NON -EQUATORIAL GUINEAN >60 GLUCOSE, PLASMA (LAB) 113 (H) CALCIUM, [...] Rd | | | | | | [facility] [place] | | | | | | [address] | | | | | | [phone] | | | | | | | | +--------+ + + + + | 06/24/ | Surgery | Surgery | Chilo | OPEN VENTRAL HERNIA | | 2018 | | | MD [address] | REPAIR WITH | | | | | [address] | BIOLOGICAL MESH | | | | | [place], [place] | | | | | | [address] | | | | | | [phone] | | | | | | | | +--------+ + + + + | 06/30/ | Office | Cardiology | Randell Franks, | | | 2019 | Visit | | [address] | | | | | | [place], [place] | | | | | | [address] | | | | | | [phone] | | | | | | | [...] | | | PDT | type 2) ([facility]) | results section. | + +--------+ + + + | TX COLLECTION | Routin | 04/14/2013 | DM type 2 | | | CAPILLARY BLOOD | e | 11:08 AM | (diabetes mellitus, | | | SPECIMEN | | PDT | type 2) ([facility]) | | + +--------+ + + [...] | [address] | [place], [place] | | | [facility] | [address] | [address] | | | TESTS | | | | + + + + + documented in this encounter Visit Diagnoses + + | Diagnosis | + + | DM type 2 (diabetes mellitus, type 2) ([facility]) - Primary Type II or unspecified type |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 without mention of complication, not stated as uncontrolled | + + | Type 2 diabetes mellitus ([facility]) Type II or unspecified type diabetes mellitus without | | mention of complication, not stated as uncontrolled | + + | AMARA (obstructive sleep apnea) Obstructive sleep apnea (adult) (pediatric) | + + | Morbid obesity ([facility]) Morbid obesity | + + | Edema | + + | GERD (gastroesophageal reflux disease) Esophageal reflux | + + documented in this encounter
--- OUTSIDE RECORDS SUMMARY | ~2019-06-01 | XMS | Encounter Summary ---
Demographics + + + | Address | [address] | | | [place] [address] | + + + | Home Phone [...] + | Katalina Padilla | ECON | [address] | | | | | [place], [place] | | | | | [address] | | + + + + + | Ellie Vang | ECON | Unknown | | + + + + + Care Team Providers + +------+ + | Care Oracle Business Analyst Name | Role | Phone | [...] | | | | | (HCC) | [place], [place] | Mailcode: | | | | | Procedures | [address] | [address] [facility] | | | | | CT ABDOMEN & | Phone: | Hospital | | | | | [address] | | [place], [place] | | | | | IV CONTRAST | Fax: | [address] | | | | | [place] [address] | [phone] | Phone: | | | | | ABDOMEN&PELV | | [phone] | | | | | IS | | Fax: | | | | | W/CONTRAST | | [phone] | | | | | See chart [...] | | | | | | [address] | | | | | | | [address] | | | | | | | Mailcode: | | | | | | | [facility] | | | | | | | Health and | | | | | | | Healing, | | | | | | | Building [address] | | | | | | | [place], [place] | | | | | | | [address] | | | | | | | Phone: | | | | | | | [phone] | | | | | | | Fax: | | | | | | | [phone] | +--------+--------+ + + + + Encounter [...] | | [address] | Ave [place], [place] | obesity (HCC) | | | | Mailcode: [place] | [address] | | | | | for Health and | [phone] | | | | | [facility] 2 | | | | | | [place], [place] | | | | | | [address] | | | | | | [phone] | | | +--------+---------+ + + + [...] up in th e air, Use a criminal justice department chair.... And get it really dry. Then use corn starch ..... Then use medicated powder... Please go to the 3rd floor for the study... [place] [address] documented in this encounter Progress Notes Shereen Pinto ACNP - 10/02/2014 11:14 AM PDTFormatting of this note might be different fro m the original. BARIATRIC INITIAL VISIT Provider: Shereen Pinto DNP, ACNP, AUTOMATIC PROFILE SHAPER OPERATOR Referring Provider: Dr. Goodrich Reason for Requested Consultation: Initial evaluation for bariatric surgery. Ezlbieta Cristina is interested in sleeve gastrec elizabeth. [...] with the surgeon. Shereen Pinto DNP, ACNP, AUTOMATIC PROFILE SHAPER OPERATOR Nurse Practitioner for Bariatric Surgery [facility] | [address] | [place], [place] | [address] | Potential Contraindications to Bariatric Surgery Age [...] other providers does not guarantee that the [facility] Bariatric Surger y program will deem [...] Rd | | | | | | [place], [place] | | | | | | [address] | | | | | | [phone] | | | | | | | | +--------+ + + + + | 06/24/ | Surgery | Surgery | Chilo, | OPEN VENTRAL HERNIA | | 2019 | | | MD [address] | REPAIR WITH | | | | | [address] | BIOLOGICAL MESH | | | | | [facility] [place] | | | | | | [address] | | | | | | [phone] | | | | | | | | +--------+ + + + + | 06/30/ | Office | Cardiology | Randell Franks, | | | 2019 | Visit | | [address] | | | | | | [place] [facility] [place] | | | | | | [address] | | | | | | [phone] | | | | | | | [...]
--- OUTSIDE RECORDS SUMMARY | ~2019-06-01 | XMS | Encounter Summary ---
Demographics + + + | Address | [address] | | | [place] [address] | + + + | Home Phone [...] [place], [place] | | | | | [address] | | + + + + + | Ellie Vang | ECON | Unknown | | + + + + + Care Team Providers + +------+ + | Care Nursing Home Aide Name | Role | Phone | + +------+ + | Kenyatta Cardenas MD | PCP | | + +------+ + Encounter Details +--------+ + + + + | Date | Type | Department | Care Team | Description | +--------+ + + + + | 03/10/ | Pharmacy | [facility] | | | | 2018 | Visit | [facility] | | | | | | [address] | | | | | | Mailcode: Center | | | | | | [facility] and | | | | | | [facility] [address] | | | | | | [place], [place] | | | | | | [address] | | | | | | [phone] | | | +--------+ + + + [...] Rd | | | | | | [place], [place] | | | | | | [address] | | | | | | [phone] | | | | | | | | +--------+ + + + + | 06/24/ | Surgery | Surgery | Chilo, | OPEN VENTRAL HERNIA | | 2018 | | | MD Demond Recinos | REPAIR WITH | | | | | [address] | BIOLOGICAL MESH | | | | | [place], [place] | | | | | | [address] | | | | | | [phone] | | | | | | | | +--------+ + + + + | 06/30/ | Office | Cardiology | Randell Franks, | | | 2018 | Visit | | [address] | | | | | | [facility] [place] | | | | | | [address] | | | | | | [phone] | | | | | | | | +--------+ + + + + documented as of this encounter Visit Diagnoses Not on filedocumented in this encounter"
--- OUTSIDE RECORDS SUMMARY | ~2019-06-01 | XMS | Encounter Summary ---
Demographics + + + | Address | [address] | | | [place] [address] | + + + | Home Phone [...] [place], [place] | | | | | [address] | | + + + + + | Ellie Vang | ECON | Unknown | | + + + + + Care Team Providers + +------+ + | Care Compensation And Benefits Manager Name | Role | Phone | [...] + + | 01/01/ | Emergency | [facility] Emergency | Fide Hester | | | 2017 - | | Department [address] | MD Raza [address] | | | | | [address] | [address] | | | 01/02/ | | [facility] | [place], [place] | | | 2017 | | [place], [place] | [address] | | | | | [address] | [phone] | | | | | [phone] | | | | | | | Jaime Yee, | | | | | | ANP [address] | | | | | | [address] | | | | | | [place], [place] | | | | | | [address] | | | | | | [phone] | | | | | | | | | | | | Sheree Aguiar MD | | | | | | [address] | | | | | | [place], [place] | | | | | | [address] | | | | | | | | | | | | Felix Cardoza, | | | | | | LITIGATION PARTNER [address] | | | | | | [address] | | | | | | [place], [place] | | | | | | [address] | | | | | | [phone] | | | | | | | [...] ready for discharge. Thank you for choosing [facility] for your healthcare needs. Abdominal Hernia Repair: [...] living will and a durable power of adjunct instructor of women's studies for health care. Bring a copy to [...] apply lotions, perfume s, deodorants, or nail zimbabwean. Do not shave the surgical site yourself. [...] driving, and getting back to your [facility] routine. When should you call your [...] Repair: Before Your Surgery", log into your [employer] a ccount at [email or web address]. You can enter U288 in the "Diavibe Library" search box . Not on [employer]? Review the AdVolumet section of your After Visit Summary for directions on anjel aguero to sign up. Current as of: March 04, 2016 Content Version: 11.2 8054-6848 [employer]. Care instructions adapted under license by [facility]. If you have questions about a medical condition or this instr uction, always ask your healthcare professional. [employer] disclaims any curly anty or liability for [...] changes in the way you eat. An exercise instruct to help you be more active and [...] Prepare for Weight-Loss Surgery", log into your [employer] account at [email or web address]. You can enter C413 in the "Dia[employer] Library" s earch box. Not on [employer]? Review the [employer] section of your After Visit Summary for directions on anjel aguero to sign up. Current as of: May 08, 2016 Content Version: 11.2 5854-7255 [employer]. Care instructions adapted under license by [facility]. If you have questions about a medical condition or this instr uction, always ask your healthcare professional. [employer] disclaims any curly anty or liability for [...] | | 0 | | | | [id number]&KNH-G0-[id number]-GEN | mouth two times | | | [...] Ball MD - 01/02/2017 7:49 AM PDT [facility] [place] DEPARTMENT OF SURGERY EMERGENCY GENERAL SURGERY Division [...] wall hernias, laci hobbs was flown from [place] with abdominal pain from a recurrent, reducible [...] uss with Dr. Moore. Mary Ball MD [id number] [facility] A [address] [facility] [place] [address] documented in this en counter Plan of [...] Rd | | | | | | [place], [place] | | | | | | [address] | | | | | | [phone] | | | | | | | | +--------+ + + + + | 06/24/ | Surgery | Surgery | Chilo, | OPEN VENTRAL HERNIA | | 2019 | | | MD Jorje [address] | REPAIR WITH | | | | | [address] | BIOLOGICAL MESH | | | | | [facility] [place] | | | | | | [address] | | | | | | [phone] | | | | | | | | +--------+ + + + + | 06/30/ | Office | Cardiology | Randell Franks, | | | 2019 | Visit | | [address] | | | | | | [place], [place] | | | | | | [address] | | | | | | [phone] | | | | | | | [...] [facility]QU[facility] | [address] | [place], [place] | | | [place] POINT OF CARE | [address] | [address] | | | TESTS | | | [...] | | | LABORATORY | | | SAMMARINESE | | | SERVICES, | | | [...] | + + + + + | [facility] | [address] | [place] [address] | | | LYDIA RANGEL | CLARENCE [...] [place] | [address] | [place], [place] | | | [place] POINT OF CARE | [facility] | [address] | | | TESTS | | | [...] [facility] | [address] | [place] [address] | | | SERVICES, CORE | PARK [...] | + + + + + | [facility] | [address] | [facility] [place] [address] | | | CLAIRE, LYDIA | CLARENCE [...] organisms may result in clinically misleading | [facility] | | information due to the low numbers and /or mixture of organisms | | | present. Recollection is suggested if clinically indicated. | | + + + + + + + + | Performing | Address | City/State/Zipcode | Phone Number | | Organization | | | | + + + + + | [facility] | [address] | [place] [address] | | | [facility] | [...] [facility] | [address] | [place] [address] | | | SERVICES, CORE | CLARENCE [...] KW[place] | [address] | [place], [place] | | | L[place] POINT OF CARE | [address] | [address] | | | TESTS | | | [...] | + + + + + | [facility] | [address] | [place] [address] | | | SERVICES, | [address] [...] [facility] | [address] | [place] [address] | | | SERVICES, | [address] [...] + + + + + | [facility] | [address] | [place] [address] | | | SERVICES, CORE | PARK [...] + + + + + | [facility] | [address] | [place] [address] | | | LYDIA RANGEL | CLARENCE [...] | | | LABORATORY | | | SAMMARINESE | | | SERVICES, | | | [...] the MDRD equation recommended by the | [facility] | | National Kidney Disease Education Program. [...] + + + + + | [facility] | [address] | [place] [address] | | | SERVICES, CORE | [address] | | | + + + + + ED INFORMATION EXCHANGE (01/01/2017 8:22 AM PDT) + + + + + + | Component | Value | Ref Range | Performed | Pathologist | | | | | At | Signature | + + + + + + | [facility] | [id number] | | [facility] | | | | [id number] | | MEDICAL | | | | [...] ---- | | | RADHA GOODRICH at [facility] | | | [facility] Unknown Primary Care | | | Unknown - Current Radha Goodrich DO | | | [phone] Primary Care | | | Unknown - Current | | + + + + + + + + | Performing | Address | City/State/Zipcode | Phone Number | | Organization | | | | + + + + + | [facility] | [address], | [place], [place] | [phone] | | [employer] | [address] | [address] | | + + + + + [...] mL, intravenous, NEEDED, | | | Starting [facility] 01/01/17 at 1751, | | | Until [...] | | | | First dose on [facility] 01/01/17 at 2100, | | | | [...] | | TIMES DAILY, First dose on [facility] | | | 01/01/17 at 2200, Until | | | Discontinued | | + +---+ | | | + +---+ + +-------+ +--------+---+---+ | magnesium oxide (MAG-OX) tablet | Given | 01/03/20 | 400 mg | | | | 400 mg 400 mg, oral, DAILY, | | 17 8:51 | | | | | First dose on [facility] 01/01/17 at 1945, | | AM PDT [...] PDT | | | | | Starting [facility] 01/01/17 at 1558, | | | | | | | Until [facility] 01/01/17 at 1848, | | | | [...] PDT | | | | | Starting [facility] 01/01/17 at 1900, | | | | [...] | | | | ONCE, 1 dose, [facility] 01/01/17 at 0945 | | AM PDT [...] on Jasmyne 01/01/17 at 2100, | | AM PDT [...] | | | | First dose on [facility] 01/01/17 at 2200, | | PM PDT | | | | | Until Discontinued | | | | | | + +-------+ +--------+---+---+ +---+---+ | | | +---+---+ documented in this encounter
--- OUTSIDE RECORDS SUMMARY | ~2019-06-01 | XMS | Encounter Summary ---
Demographics + + + | Address | [address] | | | [place] [address] | + + + | Home Phone [...] + | Katalina Padilla | ECON | [address] | | | | | [place], [place] | | | | | [address] | | + + + + + | Ellie Vang | ECON | Unknown | | + + + + + Care Team Providers + +------+ + | Care Putter In Name | Role | Phone | + [...] | | | | | | [place] [address] | | | +--------+ + + + [...] [place] | | | | | | [address] | | | | | | [phone] | | | | | | | | +--------+ + + + + | 06/24/ | Surgery | Surgery | Chilo, | OPEN VENTRAL HERNIA | | 2018 | | | MD [address] | REPAIR WITH | | | | | [address] | BIOLOGICAL MESH | | | | | [place], [place] | | | | | | [address] | | | | | | [phone] | | | | | | | | +--------+ + + + + | 06/30/ | Office | Cardiology | Randell Franks, | | | 2018 | Visit | | MD [address] | | | | | | [place], [place] | | | | | | [address] | | | | | | [phone] | | | | | | | | +--------+ + + + + documented as of this encounter Visit Diagnoses Not on filedocumented in this encounter"
--- OUTSIDE RECORDS SUMMARY | ~2019-06-01 | XMS | Encounter Summary ---
Demographics + + + | Address | [address] | | | [place] [address] | + + + | Home Phone [...] + | Katalina Padilla | ECON | [address] | | | | | [place], [place] | | | | | [address] | | + + + + + | Ellie Vang | ECON | Unknown | | + + + + + Care Team Providers + +------+ + | Care Laboratory Inspector Name | Role | Phone | + +------+ + | Fadi Goodrich DO | PCP | | + +------+ + Encounter Details +--------+ + + + + | Date | Type | Department | Care Team | Description | +--------+ + + + + | 10/19/ | Abstract | Digestive Health | Clinic, Surgery | | | 2017 | | [facility] [address] | | | | | | [address] | | | | | | Mailcode: [facility] | | | | | | [facility] and | | | | | | [facility] 2 | | | | | | [place], [place] | | | | | | [address] | | | | | | [phone] | | | +--------+ + + + [...] | | | | | | [facility] [place] | | | | | | [address] | | | | | | [phone] | | | | | | | | +--------+ + + + + | 06/24/ | Surgery | Surgery | Chilo, | OPEN VENTRAL HERNIA | | 2018 | | | MD [address] | REPAIR WITH | | | | | [address] | BIOLOGICAL MESH | | | | | [place], [place] | | | | | | [address] | | | | | | [phone] | | | | | | | | +--------+ + + + + | 06/30/ | Office | Cardiology | Randell Franks, | | | 2019 | Visit | | MD [address] | | | | | | [address] [place], [place] | | | | | | [address] | | | | | | [phone] | | | | | | | | +--------+ + + + + documented as of this encounter Visit Diagnoses Not on filedocumented in this encounter"
--- OUTSIDE RECORDS SUMMARY | ~2019-06-01 | XMS | Encounter Summary ---
Demographics + + + | Address | [address] | | | [place] [address] | + + + | Home Phone [...] [place], [place] | | | | | [address] | | + + + + + | Ellie Vang | ECON | Unknown | | + + + + + Care Team Providers + +------+ + | Care Psychiatric Nurse Practitioner Name | Role | Phone [...] | 2019 | Encounter | Lab at [facility] [address] | AGAP [address] | | | | | [address] [place] Mailcode: | [place], [place] | | | | | [facility] | [address] | | | | | Health and Healing, | [phone] | | | | | [address] | | | | | | Floor [facility] [place] | | | | | | [address] | | | | | | [phone] | | | +--------+ + + + [...] | | 0 | | | | CRB&SFQ-W7-BHR96-GEN | mouth two times | | | [...] Rd | | | | | | [place], [place] | | | | | | [address] | | | | | | [phone] | | | | | | | | +--------+ + + + + | 06/24/ | Surgery | Surgery | Chilo, | OPEN VENTRAL HERNIA | | 2018 | | | MD Jorje [address] | REPAIR WITH | | | | | [address] | BIOLOGICAL MESH | | | | | [place], [place] | | | | | | [address] | | | | | | [phone] | | | | | | | | +--------+ + + + + | 06/30/ | Office | Cardiology | Randell Franks, | | | 2018 | Visit | | MD [address] | | | | | | [address] [place], [place] | | | | | | [address] | | | | | | [phone] | | | | | | | [...]
--- OUTSIDE RECORDS SUMMARY | ~2019-06-01 | XMS | Encounter Summary ---
Demographics + + + | Address | [address] | | | [place] [address] | + + + | Home Phone [...] [place], [place] | | | | | [address] | | + + + + + | Ellie Vang | ECON | Unknown | | + + + + + Care Team Providers + +------+ + | Care Soiled Linen Distributor Name | Role | Phone | [...] 06/23/ | Anesthesia | 6A Intra Op [facility] | Suzanne Bernal, | | | 2017 | Event | [facility] | Joann Person MD,PhD | | | | | Admitting Desk | [address] | | | | | Located on the 9 | [facility] [place] | | | | | floor [address] [facility] | [address] | | | | | [address] | [phone] | | | | | [place], [place] | | | | | | [address] | Graham Mckinney, | | | | | | PIT MANAGER [address] | | | | | | [address] | | | | | | [place], [place] | | | | | | [address] | | | | | | [phone] | | | | | | | [...] | 01/01/17928 by | | | | [email or web address]; Other (Comment) (open | Ashley Herndon RN [...] MD ; | 03/01/18 1051 by | | | on | Anterior, Upper; epigastrium | Erin Odell RN | | +--------+ + + + | Periph | 06/23/18; 1410; Right; Hand; 20 | 06/23/18 1410 by | 06/23/18 1800 by | | brendal | g; Positive; 06/23/18; 1800 | Samanta Richards RN | Lissette Mistry, | | IV | | | KELSIE | +--------+ + + + | ETT | 06/23/18; 1519 (created via | 06/23/18 1519 by | 06/23/18 1542 by | | | procedure documentation); | Graham Mckinney, | Graham Mckinney, | | | Endotracheal Tube; 7; Oral; | PIT MANAGER | PIT MANAGER | | | Cuffed; 06/23/18; 1542 | [...] | | | | | | [address] | | | | | | [facility] [place] | | | | | | [address] | | | | | | [phone] | | | | | | | | +--------+ + + + + | 06/24/ | Surgery | Surgery | Chilo | OPEN VENTRAL HERNIA | | 2019 | | | MD [address] | REPAIR WITH | | | | | [address] | BIOLOGICAL MESH | | | | | [place] | | | | | | [address] | | | | | | [phone] | | | | | | | | +--------+ + + + + | 06/30/ | Office | Cardiology | Randell Franks, | | | 2018 | Visit | | [address] | | | | | | [place], [place] | | | | | | [address] | | | | | | [phone] | | | | | | | | +--------+ + + + + documented as of this encounter Procedures + +--------+ + + + | Procedure Name | Priori | Date/Time | Associated Diagnosis | Comments | | | ty | | | | + +--------+ + + + | ANE ETT | Routin | 06/23/2018 | | Results for this | | | e | 3:28 PM | | procedure are in the | | | | PST | | results section. | + +--------+ + + + documented in this encounter Results ANE ETT (06/23/2018 3:28 PM PST) + + + | Narrative | Performed At | + + + | Graham Mckinney CRNA 06/23/2018 3:30 PM Procedure Reason | [...] bed and dolores for RSI. Performed by PIT MANAGER | | | YINKA, GRAHAM E | | + + + documented in [...] | | | | | 06/23/18 at 1507, Until Wed | | | [...]
--- OUTSIDE RECORDS SUMMARY | ~2019-06-01 | XMS | Encounter Summary ---
Demographics + + + | Address | [address] | | | [place] [address] | + + + | Home Phone [...] [place], [place] | | | | | [address] | | + + + + + | Ellie Vang | ECON | Unknown | | + + + + + Care Team Providers + +------+ + | Care Integrity Manager Name | Role | Phone | [...] + + | 04/07/ | Hospital | [facility] | Tal Lund | | | 2019 | Encounter | [place] [address] | MD Barb [address] | | | | | [address] [place] Mailcode: | [place], [place] | | | | | [facility] | [address] | | | | | and Healing, | [phone] | | | | | Building [address] | | | | | | [place], [place] | | | | | | [address] | | | | | | [phone] | | | +--------+ + + + [...] Discharge Instructions Instructions Keerthi Bernard RN - 04/07/2019[place] Care Instructions after EGD (Upper Endos copy) [...] hours or on weekends and holiday Hospital Administrative And Program Specialist toll free [phone] ext. [phone] and have the GI doctor long wall mining machine helper paged. The provider who performed your [...] | | 0 | | | | CRB&UFS-O3-TWC63-GEN | mouth two times | | | [...] from the original. PRE PROCEDURE NOTE: MR# [id number] Subjective: Elzbieta Cristina is a 44 y.o. [...] [place] | | | | | | [address] | | | | | | [phone] | | | | | | | | +--------+ + + + + | 06/24/ | Surgery | Surgery | Chilo, | OPEN VENTRAL HERNIA | | 2019 | | | MD [address] | REPAIR WITH | | | | | [address] | BIOLOGICAL MESH | | | | | [place], [place] | | | | | | [address] | | | | | | [phone] | | | | | | | | +--------+ + + + + | 06/30/ | Office | Cardiology | Randell Franks, | | | 2019 | Visit | | [address] | | | | | | [place], [place] | | | | | | [address] | | | | | | [phone] | | | | | | | [...] + | MRN: | [facility] | | [id number] Date: 04/07/2019Patient Name: Elzbieta Curtis #: | ENDOSCOPY | | [id number] of : 1975CSN: [id number] Type: | | | AmbulatoryRoom: Endo 5Procedure: Upper GI | | | endoscopyIndications: Generalized abdominal pain, Nausea | | | with vomitingProviders: TAL LUND MD | | | (Doctor), KEERTHI BERNARD RN (Nurse), | | | EREN SLATER ([facility])Referring MD: SYLVIA Kilpatrick | | | Mela [...] | | | The [employer] [id number] Endoscope #[id number] | | | was introduced through the [...]
--- OUTSIDE RECORDS SUMMARY | ~2019-06-01 | XMS | Encounter Summary ---
Demographics + + + | Address | [address] | | | [place] [address] | + + + | Home Phone [...] [place], [place] | | | | | [address] | | + + + + + | Ellie Vang | ECON | Unknown | | + + + + + Care Team Providers + +------+ + | Care Prosthetic Dentist Name | Role | Phone | + [...] 2014 | | Preventive at [facility] | MD [address] | | | | | [address] | [place] [facility] [place] | | | | | Mailcode: [facility] | [address] | | | | | [facility] | [phone] | | | | | and [place] | | | | | | Building [address] | | | | | | [facility] [place] | | | | | | [address] | | | | | | [phone] | | | +--------+ + + + [...] [place] | | | | | | [address] | | | | | | [phone] | | | | | | | | +--------+ + + + + | 06/24/ | Surgery | Surgery | Chilo | OPEN VENTRAL HERNIA | | 2018 | | | MD [address] | REPAIR WITH | | | | | [address] | BIOLOGICAL MESH | | | | | [place], [place] | | | | | | [address] | | | | | | [phone] | | | | | | | | +--------+ + + + + | 06/30/ | Office | Cardiology | Randell Franks, | | | 2019 | Visit | | MD [address] | | | | | | [place], [place] | | | | | | [address] | | | | | | [phone] | | | | | | | | +--------+ + + + + documented as of this encounter Visit Diagnoses Not on filedocumented in this encounter"
--- OUTSIDE RECORDS SUMMARY | ~2019-06-01 | XMS | Encounter Summary ---
Demographics + + + | Address | [address] | | | [place] [address] | + + + | Home Phone [...] + | Katalina Padilla | ECON | [address] | | | | | [place], [place] | | | | | [address] | | + + + + + | Ellie Vang | ECON | Unknown | | + + + + + Care Team Providers + +------+ + | Care Guest Relations Coordinator Name | Role | Phone | [...] | | [place] Mailcode: CH[facility] | [facility] | | | | | [facility] | [place], [place] | | | | | and Healing, | [address] | | | | | [place] [address] [facility] | [phone] | | | | | Floor [place], [place] | | | | | | [address] | | | | | | [phone] | | | +--------+ + + + [...] SW | | | | | | [address] | | | | | | [place], [place] | | | | | | [address] | | | | | | [phone] | | | | | | | | +--------+ + + + + | 06/24/ | Surgery | Surgery | Chilo, | OPEN VENTRAL HERNIA | | 2018 | | | MD Jorje [address] | REPAIR WITH | | | | | [address] | BIOLOGICAL MESH | | | | | [place], [place] | | | | | | [address] | | | | | | [phone] | | | | | | | | +--------+ + + + + | 06/30/ | Office | Cardiology | Randell Franks, | | | 2019 | Visit | | MD [address] | | | | | | Ave [place], [place] | | | | | | [address] | | | | | | [phone] | | | | | | | | +--------+ + + + + documented as of this encounter Visit Diagnoses Not on filedocumented in this encounter"
--- OUTSIDE RECORDS SUMMARY | ~2019-06-01 | XMS | Encounter Summary ---
Demographics + + + | Address | [address] | | | [place] [address] | + + + | Home Phone [...] [place], [place] | | | | | [address] | | + + + + + | Ellie Vang | ECON | Unknown | | + + + + + Care Team Providers + +------+ + | Care Procedure Manager Name | Role | Phone | [...] | 2016 | on | Center at [place] [id number] | | | | | | [address] | | | | | | Mailcode: [place] | | | | | | for Health and | | | | | | [facility], [facility] [address] | | | | | | [place], [place] | | | | | | [address] | | | | | | [phone] | | | +--------+ + + + [...] Rd | | | | | | [place], [place] | | | | | | [address] | | | | | | [phone] | | | | | | | | +--------+ + + + + | 06/24/ | Surgery | Surgery | Chilo, | OPEN VENTRAL HERNIA | | 2018 | | | MD [address] | REPAIR WITH | | | | | [address] | BIOLOGICAL MESH | | | | | [place], [place] | | | | | | [address] | | | | | | [phone] | | | | | | | | +--------+ + + + + | 06/30/ | Office | Cardiology | Randell Franks, | | | 2018 | Visit | | MD [address] | | | | | | Ave [place], [place] | | | | | | [address] | | | | | | [phone] | | | | | | | | +--------+ + + + + documented as of this encounter Visit Diagnoses Not on filedocumented in this encounter"
--- OUTSIDE RECORDS SUMMARY | ~2019-06-01 | XMS | Encounter Summary ---
Demographics + + + | Address | [address] | | | [place] [address] | + + + | Home Phone [...] [place], [place] | | | | | [address] | | + + + + + | Ellie Vang | ECON | Unknown | | + + + + + Care Team Providers + +------+ + | Care Paralegal Legal Secretary Name | Role | Phone | [...] | | | | | bypass | [address], | Mailcode: | | | | | Nausea and | [place] | [address] [facility] | | | | | vomiting, | [address] | Hospital | | | | | intractabili | Phone: | [address], [place] | | | | | ty of | | [address] | | | | | vomiting not | Fax: | Phone: | | | | | specified, | [phone] | [phone] | | | | | unspecified | | Fax: | | | | | vomiting | | [phone] | | | | | type | [...] | | | | | | [place] | | | | | | | CT SCAN OF | | | | | | | ABDOMEN | | | | | | | [place] | | | | | | [...] | | | | | bypass | [address], | Mailcode: | | | | | Nausea and | [place] | [address] [facility] | | | | | vomiting, | [address] | Hospital | | | | | intractabili | Phone: | [address], [place] | | | | | ty of | | [address] | | | | | vomiting not | Fax: | Phone: | | | | | specified, | [phone] | [phone] | | | | | unspecified | | Fax: | | | | | vomiting | | [phone] | | | | | type | [...] | | | | | | [place] | | | | | | | CT SCAN OF | | | | | | | ABDOMEN | | | | | | | [place] | | | | | | [...] | 2019 | Encounter | Services at [facility] | [address] | | | | | [address] | [place], [place] | | | | | Lesly Gutiérrez Mailcode: | [address] | | | | | [address] [facility] | [phone] | | | | | [place], [place] | | | | | | [address] | | | | | | [phone] | | | +--------+ + + + [...] | | 0 | | | | CRB&[id number]-[id number]-GEN | mouth two times | | | [...] Rd | | | | | | [place], [place] | | | | | | [address] | | | | | | [phone] | | | | | | | | +--------+ + + + + | 06/24/ | Surgery | Surgery | Analisa Woo OPEN VENTRAL HERNIA | | 2019 | | | MD Jorje [address] | REPAIR WITH | | | | | [address] | BIOLOGICAL MESH | | | | | [address] [address], [place] | | | | | | [address] | | | | | | [phone] | | | | | | | | +--------+ + + + + | 06/30/ | Office | Cardiology | Randell Franks, | | | 2019 | Visit | | [address] | | | | | | [address], [place] | | | | | | [address] | | | | | | [phone] | | | | | | | [...] necessary, edited the report. I agree with yesenia report as now presented. | | | [...]
--- OUTSIDE RECORDS SUMMARY | ~2019-06-01 | XMS | Encounter Summary ---
Demographics + + + | Address | [address] | | | [place] [address] | + + + | Home Phone [...] [place], [place] | | | | | [address] | | + + + + + | Ellie Vang | ECON | Unknown | | + + + + + Care Team Providers + +------+ + | Care Radiator Mechanic Name | Role | Phone | [...] | | | | | [facility] | | | | | | [place], [place] | | | | | | [address] | | | | | | [phone] | | | +--------+ + + + [...] Rd | | | | | | [facility] [place] | | | | | | [address] | | | | | | [phone] | | | | | | | | +--------+ + + + + | 06/24/ | Surgery | Surgery | Chilo | OPEN VENTRAL HERNIA | | 2018 | | | MD Demond Recinos | REPAIR WITH | | | | | [address] | BIOLOGICAL MESH | | | | | [place], [place] | | | | | | [address] | | | | | | [phone] | | | | | | | | +--------+ + + + + | 06/30/ | Office | Cardiology | Randell Franks, | | | 2019 | Visit | | [address] | | | | | | [place], [place] | | | | | | [address] | | | | | | [phone] | | | | | | | [...] in | | | | | | [place]. | | | | | | | | | | | | Julia Blackman at [facility]. | | | | | | [...] | | | | artery. A 4.1 English | | | | | | catheter was navigated | | | | | | over0.035" Donal coated | | | | | | Sympozson guide wire into | | | | [...] | | + +---------+ + + | [facility] DEPARTMENT OF | | | | | RADIOLOGY | | | | + +---------+ + + documented in this encounter Visit Diagnoses Not on filedocumented in this encounter
--- OUTSIDE RECORDS SUMMARY | ~2019-06-01 | XMS | Encounter Summary ---
Demographics + + + | Address | [address] | | | [place] [address] | + + + | Home Phone [...] [place], [place] | | | | | [address] | | + + + + + | Ellie Vang | ECON | Unknown | | + + + + + Care Team Providers + +------+ + | Care Senior Planner Name | Role | Phone | + +------+ + | Fadi Goodrich DO | PCP | | + +------+ + Encounter Details +--------+------+ + + + | Date | Type | Department | Care Team | Description | +--------+------+ + + + | 11/20/ | Lab | Laboratory at [facility] | | 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 | | [address] | | BMI of 70 and over, | | | | [place], [place] | | adult ([facility]); | | | | [address] | | 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 ([facility]); | | | | | | Type 2 diabetes | | | | | | mellitus without | | | | | | complication, with | | | | | | long-term current | | | | | | use of insulin ([facility]) | +--------+------+ + + [...] Rd | | | | | | [place], [place] | | | | | | [address] | | | | | | [phone] | | | | | | | | +--------+ + + + + | 06/24/ | Surgery | Surgery | Chilo, | OPEN VENTRAL HERNIA | | 2018 | | | MD Demond [address] | REPAIR WITH | | | | | [address] | BIOLOGICAL MESH | | | | | [place], [place] | | | | | | [address] | | | | | | [phone] | | | | | | | | +--------+ + + + + | 06/30/ | Office | Cardiology | Randell Franks, | | | 2018 | Visit | | MD [address] | | | | | | Ave [place], [place] | | | | | | [address] | | | | | | [phone] | | | | | | | [...] | | | PDT | over, adult ([facility]) | results section. | | | | | 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| | 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 ([facility]) | | + +--------+ + + + | VITAMIN B1, WHOLE | Routin | 11/20/2017 | Morbid obesity | Results for this | | BLOOD | e | 10:01 AM | with BMI of 70 and | procedure are in the | | | | PDT | over, adult ([facility]) | results section. | | | | | 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| | 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 ([facility]) | | + +--------+ + + + | VITAMIN D, | Routin | 11/20/2017 | Morbid obesity | Results for this | | 25-HYDROXY, SERUM | e | 10:01 AM | with BMI of 70 and | procedure are in the | | | | PDT | over, adult ([facility]) | results section. | | | | | 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| | 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 ([facility]) | | + +--------+ + + + | COMPLETE METABOLIC | Routin | 11/20/2017 | Morbid obesity | Results for this | | SET | e | 10:01 AM | with BMI of 70 and | procedure are in the | | (NA,K,CL,CO2,BUN,CRE | | PDT | over, adult ([facility]) | results section. | | AT,GLUC,CA,AST,ALT,B | | | Diabetes mellitus | | | MARGIE TOTAL,ALK | | | type 2 without | | | PHOS,ALB,PROT TOTAL) |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 ([facility]) | | + +--------+ + + + | CBC ONLY | Routin | 11/20/2017 | Morbid obesity | Results for this | | | e | 10:01 AM | with BMI of 70 and | procedure are in the | | | | PDT | over, adult ([facility]) | results section. | [...] | | | PDT | over, adult ([facility]) | results section. | [...] | | | PDT | over, adult ([facility]) | results section. | | | | | 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| | 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 ([facility]) | | + +--------+ + + + | VITAMIN B-12 | Routin | 11/20/2017 | Morbid obesity | Results for this | | | e | 10:01 AM | with BMI of 70 and | procedure are in the | | | | PDT | over, adult ([facility]) | results section. | | | | | 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| | 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 ([facility]) | | + +--------+ [...] | | | PDT | over, adult ([facility]) | results section. | [...] SERVICES, | | | | | | [place] [facility] | | | | | | [...] [facility] | [address] | [place] [address] | | | SERVICES, CENTER FOR | [...] + + | [facility] | [address] | [place], [place] | | | SERVICES, LIPID | [address] | [address] | | + + + + + [...] | [facility] | | considered for monitoring penitentiary glycemic control in patients with: | LABORATORY [...] + + + + + | [facility] | [address] | [place] [address] | | | SERVICES, SPECIAL | PARK [...] | | | | | determined by [facility] | | | | | | Laboratories. See | | | | | | Compliance Statement B: | | | | | | [employer]/CSPerformed | | | | | | by [employer],[address] | | | | | | Liliana [address], [facility] | | | | | | [address] | | | | | | [phone].[employer]. | | | | | | com, [...] [facility] | [address] | [place], [place] | | | [facility] | | [address] | | + + + + + [...] [facility] | [address] [facility] [address] | [place] [address] | | | LYDIA RANGEL | CLARENCE [...] + + + + + | [facility] | [address] | [place] [address] | | | SERVICES, CORE | CLARENCE [...] + + | [facility] | [address] | [place] [address] | | | SERVICES, CORE | CLARENCE [...] + + | [facility] | [address] [facility] | [place] [address] | | | SERVICES, CORE | PARK [...] [facility] | [address] | [place] [address] | | | SERVICES, CORE | PARK [...] NKECHI ALEJANDRA | [address] | [place] [address] | | | SERVICES, LYDIA | CLARENCE [...]
--- OUTSIDE RECORDS SUMMARY | ~2019-06-01 | XMS | Encounter Summary ---
Demographics + + + | Address | [address] | | | [place] [address] | + + + | Home Phone [...] + | Katalina Padilla | ECON | [address] | | | | | [place], [place] | | | | | [address] | | + + + + + | Ellie Vang | ECON | Unknown | | + + + + + Care Team Providers + +------+ + | Care Machine Strap Buckler Name | Role | Phone | + +------+ + | Fadi Goodrich DO | PCP | | + +------+ + Encounter Details +--------+ + + + + | Date | Type | Department | Care Team | Description | +--------+ + + + + | 06/07/ | Hospital | Radiology/Imaging | Ronna Clarke, | | | 2018 | Encounter | Lab at [facility] [address] | ACNP [address] | | | | | [address] [place] Mailcode: | [place], [place] | | | | | [facility] | [address] | | | | | Health and Healing, | [phone] | | | | | [address] | | | | | | Floor [place], [place] | | | | | | [address] | | | | | | [phone] | | | +--------+ + + + [...] | | 0 | | | | CRB&[id number]-[id number] | mouth two times | | | [...] Rd | | | | | | [place], [place] | | | | | | [address] | | | | | | [phone] | | | | | | | | +--------+ + + + + | 06/24/ | Surgery | Surgery | Chilo, | OPEN VENTRAL HERNIA | | 2018 | | | MD Jorje [address] | REPAIR WITH | | | | | [address] | BIOLOGICAL MESH | | | | | [facility] [place] | | | | | | [address] | | | | | | [phone] | | | | | | | | +--------+ + + + + | 06/30/ | Office | Cardiology | Randell Franks, | | | 2018 | Visit | | [address] | | | | | | [place], [place] | | | | | | [address] | | | | | | [phone] | | | | | | | [...] documented in this encounter Results X-RAY UGI Charlene RAVINDER (06/07/2018 9:47 AM PST) + + | Specimen | + + | | + + + + + | Narrative | Performed At | + + + | EXAM: Esophagram with fun house attendant radiograph HISTORY: RYGB 03/01/2018, | [facility] | | vomiting/pain ever since COMPARISON: 04/27/2018 CT TECHNIQUE: | RADIOLOGY VOICE | | Lapping Machine Operator radiograph was performed. Single contrast exam of the esophagus, | RECOGNITION 2 | | gastric pouch, and gastrojejunostomy in upright positioning. | | | Radiation dose reduction technique was maximized where appropriate | | | using pulsed fluoroscopy and fluoro-store images. Fluoro Time 57 | | | second(s) FINDINGS: Lapping Machine Operator shows stone in the upper pole [...] AM PST EXAM: Esophagram | | with fun house attendant radiograph HISTORY: RYGB 03/01/2018, vomiting/pain ever since COMPARISON: | | 04/27/2018 CT TECHNIQUE: Lapping Machine Operator radiograph was performed. Single contrast exam of the | | esophagus, gastric pouch, and gastrojejunostomy in upright positioning. Radiation dose | | reduction technique was maximized where appropriate using pulsed fluoroscopy and | | fluoro-store images. Fluoro Time 57 second(s) FINDINGS:Lapping Machine Operator shows stone in the upper | [...] report as now presented. Final signature: Zaheer Evnas MD | | 06/07/2018 11:17 AM Preliminary: Evy Ramirez MD Dictation initiated: Evy | | MD James 06/07/2018 10:04 AM | |Normal esophageal motility. [...]
--- OUTSIDE RECORDS SUMMARY | ~2019-06-01 | XMS | Encounter Summary ---
Demographics + + + | Address | [address] | | | [place] [address] | + + + | Home Phone [...] [place], [place] | | | | | [address] | | + + + + + | Ellie Vang | ECON | Unknown | | + + + + + Care Team Providers + +------+ + | Care Hospital Account Manager Name | Role | Phone [...] | | 2014 | | Preventive at [facility] | MD [address] | | | | | [address] | [place] [facility] [place] | | | | | Mailcode: [facility] | [address] | | | | | [facility] | [phone] | | | | | and Erick | | | | | | [address] | | | | | | [facility] [place] | | | | | | [address] | | | | | | [phone] | | | +--------+ + + + [...] Rd | | | | | | [place], [place] | | | | | | [address] | | | | | | [phone] | | | | | | | | +--------+ + + + + | 06/24/ | Surgery | Surgery | Chilo | OPEN VENTRAL HERNIA | | 2018 | | | MD [address] | REPAIR WITH | | | | | [address] | BIOLOGICAL MESH | | | | | [place], [place] | | | | | | [address] | | | | | | [phone] | | | | | | | | +--------+ + + + + | 06/30/ | Office | Cardiology | Randell Franks, | | | 2019 | Visit | | MD [address] | | | | | | [place], [place] | | | | | | [address] | | | | | | [phone] | | | | | | | | +--------+ + + + + documented as of this encounter Visit Diagnoses Not on filedocumented in this encounter"
--- OUTSIDE RECORDS SUMMARY | ~2019-06-01 | XMS | Encounter Summary ---
Demographics + + + | Address | [address] | | | [place] [address] | + + + | Home Phone [...] [place], [place] | | | | | [address] | | + + + + + | Ellie Vang | ECON | Unknown | | + + + + + Care Team Providers + +------+ + | Care Property Adjuster Name | Role | Phone | + [...] | Pain | Diagnoses | Tilgner, | Pest Control Service Technician Psych | | | | Management | Morbid | Shereen Murcia ACNP | [address] | | | | | obesity with | [address] | | | | | BMI of [address] | [address] | Mailcode: | | | | | and over, | [place], [place] | [address] | | | | | adult ([facility]) | [address] | for Health | | | | | Procedures | Phone: | and Healing, | | | | | CONSULT TO | [phone] | Building [address], | | | | | PAIN | Fax: | 15th Floor | | | | | MANAGEMENT | [phone] | [place], [place] | | | | | [place] | | [address] | | | | | PSYCHIATRIC | | Phone: | | | | | DIAGNOSTIC | | [phone] | | | | | EVAL, NO MED | | Fax: | | | | | [facility] [place] | | [phone] | | | | | PSYCH TSTNG | | | | | | | PSYCH/PHYS | | | +--------+---------+ + + + + Encounter Details +--------+---------+ + + + | Date | Type | Department | Care Team | Description | +--------+---------+ + + + | 10/02/ | Office | [facility] Center at [facility] | Leslie Mistry, | Morbid obesity | | 2018 | Visit | 15th Floor [address] | PhD [address] [facility] | ([facility]); Bipolar | | | | [address] Mailcode: | [address] | affective disorder, | | | | [facility] Center for | [place], [place] | remission status | | | | Health and Healing, | [address] | unspecified ([facility]); | | | | | [phone] | BMI 60.0-69.9, adult | | | | Floor [place], [place] | | ([facility]); Anxiety | | | | [address] | | | | | | [phone] | | | +--------+---------+ + + + [...] Name: Elzbieta Cristina : 1975 Medical Record: [id number] Age: 42 y.o. Weight today, per patient report: 305 lbs Weight on 09/11/17: 389, BMI 73.54 Identifying Information: Elzbieta Cristina is a 42 y.o. female who lives with her mother in [place], [place]. She was referred for psychological evaluation [...] of cereal with skim milk and a british virgin islander yogurt L: white bread and cheese and [...] laundry. For enjoym ent the patient watches [employer] with her girlfriend. She is socially active [...] Social History: Elzbieta Cristina was born in [place] and lived with her mother and sister. [...] Weight and Lifestyle Inventory (PAT) (shortened) CONCLUSIONS: Elbzieta Cristina is not currently an appropriate candidate [...] time I spent was approximately 60 minutes hqrx-ij-ejgv with the patient and approxima tely 2 hours of sfx-dvab-td-face testing, interpreting and synthesizing results. Leslie Mistry, PhD Clinical Psychologist [facility] [address] [place] [address] and [facility], 15th [place] [address] Iugxtovvgxhqmu signed by Leslie Mistry, PhD at 10/08/2017 [...] | | | | | | [place], [place] | | | | | | [address] | | | | | | [phone] | | | | | | | | +--------+ + + + + | 06/24/ | Surgery | Surgery | Chilo, | OPEN VENTRAL HERNIA | | 2018 | | | MD [address] | REPAIR WITH | | | | | [address] | BIOLOGICAL MESH | | | | | [place], [place] | | | | | | [address] | | | | | | [phone] | | | | | | | | +--------+ + + + + | 06/30/ | Office | Cardiology | Randell Franks, | | | 2018 | Visit | | [address] | | | | | | [place], [place] | | | | | | [address] | | | | | | [phone] | | | | | | | [...]
--- OUTSIDE RECORDS SUMMARY | ~2019-06-01 | XMS | Encounter Summary ---
Demographics + + + | Address | [address] | | | [place] [address] | + + + | Home Phone [...] [place], [place] | | | | | [address] | | + + + + + | Ellie Vang | ECON | Unknown | | + + + + + Care Team Providers + +------+ + | Care Mergers [employer] Acquisitions Banker Name | Role | Phone | + [...] | | | | | bypass | [place], | Mailcode: | | | | | Nausea and | [place] | [address] [facility] | | | | | vomiting, | [address] | Hospital | | | | | intractabili | Phone: | [place], [place] | | | | | ty of | | [address] | | | | | vomiting not | Fax: | Phone: | | | | | specified, | [phone] | [phone] | | | | | unspecified | | Fax: | | | | | vomiting | | [phone] | | | | | type | [...] | | | | | | [place] | | | | | | | CT SCAN OF | | | | | | | ABDOMEN | | | | | | | [place] | | | | | | | [...] | | | | | bypass | [place], | Mailcode: | | | | | Nausea and | [place] | [address] [facility] | | | | | vomiting, | [address] | Hospital | | | | | intractabili | Phone: | [place], [place] | | | | | ty of | | [address] | | | | | vomiting not | Fax: | Phone: | | | | | specified, | [phone] | [phone] | | | | | unspecified | | Fax: | | | | | vomiting | | [phone] | | | | | type | [...] | | | | | | [place] | | | | | | | CT SCAN OF | | | | | | | ABDOMEN | | | | | | | [place] | | | | | | | [...] | 2019 | Encounter | Services at [facility] | [address] | | | | | [address] | [place], [place] | | | | | [address] Mailcode: | [address] | | | | | [address] [facility] | [phone] | | | | | [place], [place] | | | | | | [address] | | | | | | [phone] | | | +--------+ + + + [...] | | 0 | | | | CRB&[id number]-G7-[id number]-GEN | mouth two times | | | [...] Rd | | | | | | [place], [place] | | | | | | [address] | | | | | | [phone] | | | | | | | | +--------+ + + + + | 06/24/ | Surgery | Surgery | Analisa Woo OPEN VENTRAL HERNIA | | 2019 | | | MD Jorje [address] | REPAIR WITH | | | | | [address] | BIOLOGICAL MESH | | | | | [place], [place] | | | | | | [address] | | | | | | [phone] | | | | | | | | +--------+ + + + + | 06/30/ | Office | Cardiology | Randell Franks, | | | 2019 | Visit | | [address] | | | | | | Ave [place], [place] | | | | | | [address] | | | | | | [phone] | | | | | | | [...]
--- OUTSIDE RECORDS SUMMARY | ~2019-06-01 | XMS | Encounter Summary ---
Demographics + + + | Address | [address] | | | [place] [address] | + + + | Home Phone [...] [place], [place] | | | | | [address] | | + + + + + | Ellie Vang | ECON | Unknown | | + + + + + Care Team Providers + +------+ + | Care Utility Hand Name | Role | Phone | [...] | | | | Mailcode: Center | [place], [place] | with insulin therapy | | | | for Health and | [address] | (HCC) | | | | [facility] | [phone] | | | | | [place], [place] | | | | | | [address] | | | | | | [phone] | | | +--------+---------+ + + + [...] of Visit: 1:30 to 1:55 (25 minutes utox-on-foet with patient). Pt seen tog ether with Rossana Espinoza RD (training) SUBJECTIVE: Working with RN to get access to IQuum water exercises. States she was down to 374lbs by following LRD but with complications (n/v, fainting) - need to obtain records from PCP [facility]. Food Allergies: No Current Physical Activity: Nothing - plans to start swimming this week Diet Recall Cookson (100kcal) + Activia Light - 60kcal Atkins [...] post-surgery diet progression. 4. Call or send Glassdoor message to dietitian with any questions. Contact information was provided. Follow up with dietitian via telephone 1 week after beginning water exercises for weight ch addie. Yuli Childs RD, [facility], [place] Pager# [phone] Rossana Espinoza MS, RD Pgr #[phone] documented in this enco unter Plan of [...] Rd | | | | | | [place] | | | | | | [address] | | | | | | [phone] | | | | | | | | +--------+ + + + + | 06/24/ | Surgery | Surgery | Chilo, | OPEN VENTRAL HERNIA | | 2018 | | | MD [address] | REPAIR WITH | | | | | [address] | BIOLOGICAL MESH | | | | | [place] | | | | | | [address] | | | | | | [phone] | | | | | | | | +--------+ + + + + | 06/30/ | Office | Cardiology | Randell Franks, | | | 2019 | Visit | | [address] | | | | | | [place], [place] | | | | | | [address] | | | | | | [phone] | | | | | | | | +--------+ + + + + documented as of this encounter Procedures + +--------+ + + + | Procedure Name | Priori | Date/Time | Associated Diagnosis | Comments | | | ty | | | | + +--------+ + + + | [place] MNT RE-ASSESSMNT | Routin | 12/27/2014 | Morbid obesity | | | X15MIN | e | 8:17 AM | ([facility]) Diabetes | | | | | PDT | mellitus with | | | | | | insulin therapy | | | | | | ([facility]) | | + +--------+ + + + documented in this encounter Visit Diagnoses + + | Diagnosis | + + | Morbid obesity ([facility]) - Primary Morbid obesity | + + | Diabetes mellitus with insulin therapy ([facility]) | + + documented in this encounter
--- OUTSIDE RECORDS SUMMARY | ~2019-06-01 | XMS | Encounter Summary ---
Demographics + + + | Address | [address] | | | [place] [address] | + + + | Home Phone [...] [place], [place] | | | | | [address] | | + + + + + | Ellie Vang | ECON | Unknown | | + + + + + Care Team Providers + +------+ + | Care Podiatrist Name | Role | Phone | + +------+ + | Fadi Goodrich DO | PCP | | + +------+ + Encounter Details +--------+ + + + + | Date | Type | Department | Care Team | Description | +--------+ + + + + | 07/18/ | Abstract | Digestive Health | Shereen Georges, | | | 2012 | | Center at [facility] [address] | ACNP [address] | | | | | [address] | Ave [place], [place] | | | | | Mailcode: [place] | [address] | | | | | for Health and | | | | | | [facility] 2 | | | | | | [facility] [place] | | | | | | [address] | | | | | | | [...] Rd | | | | | | [place], [place] | | | | | | [address] | | | | | | [phone] | | | | | | | | +--------+ + + + + | 06/24/ | Surgery | Surgery | Chilo, | OPEN VENTRAL HERNIA | | 2018 | | | MD Jorje [address] | REPAIR WITH | | | | | [address] | BIOLOGICAL MESH | | | | | [facility] [place] | | | | | | [address] | | | | | | [phone] | | | | | | | | +--------+ + + + + | 06/30/ | Office | Cardiology | Randell Franks, | | | 2018 | Visit | | [address] | | | | | | [place] [facility] [place] | | | | | | [address] | | | | | | [phone] | | | | | | | | +--------+ + + + + documented as of this encounter Visit Diagnoses Not on filedocumented in this encounter"
--- OUTSIDE RECORDS SUMMARY | ~2019-06-01 | XMS | Encounter Summary ---
Demographics + + + | Address | [address] | | | [place] [address] | + + + | Home Phone [...] + | Katalina Padilla | ECON | [address] | | | | | [place], [place] | | | | | [address] | | + + + + + | Ellie Vang | ECON | Unknown | | + + + + + Care Team Providers + +------+ + | Care Racker Octave Board Name | Role | Phone | [...] | | [address] | Ave [place], [place] | | | | | Mailcode: [place] | [address] | | | | | for Health and | [phone] | | | | | [facility] 2 | | | | | | [facility] [place] | | | | | | [address] | | | | | | | [...] Rd | | | | | | [place], [place] | | | | | | [address] | | | | | | [phone] | | | | | | | | +--------+ + + + + | 06/24/ | Surgery | Surgery | Chilo, | OPEN VENTRAL HERNIA | | 2019 | | | MD Jorje [address] | REPAIR WITH | | | | | [address] | BIOLOGICAL MESH | | | | | [place], [place] | | | | | | [address] | | | | | | [phone] | | | | | | | | +--------+ + + + + | 06/30/ | Office | Cardiology | Randell Franks, | | | 2019 | Visit | | MD [address] | | | | | | [place], [place] | | | | | | [address] | | | | | | [phone] | | | | | | | | +--------+ + + + + documented as of this encounter Visit Diagnoses Not on filedocumented in this encounter"
--- OUTSIDE RECORDS SUMMARY | ~2019-06-01 | XMS | Encounter Summary ---
Demographics + + + | Address | [address] | | | [place] [address] | + + + | Home Phone [...] [place], [place] | | | | | [address] | | + + + + + | Ellie Vang | ECON | Unknown | | + + + + + Care Team Providers + +------+ + | Care Resident Inspector Name | Role | Phone | [...] | | | | | Ventral | [address] | [id number] | | | | | hernia | Phone: | [place] | | | | | without | [phone] | [address] | | | | | obstruction | Fax: | [place], | | | | | or gangrene | [phone] | [place] [address] | | | | | Mixed | | Phone: | | | | | hyperlipidem | | [phone] | | | | | ia Diabetes | | Fax: | | | | | mellitus | | [phone] | | | | | type 2 [...] | | | | | | | [facility] | | | | | | | ENDOSCOPY,BI | | | | | | | [facility] | | | | | | [...] | | | | Mailcode: Center | [address] | Ventral hernia | | | | for Health and | [phone] | without obstruction | | | | Healing, Building 2 | | or gangrene; 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 documented in this [...] tongue once daily., Disp: , Rfl: CALCIUM CRB&QRH-L3-MFE86-GENIS ORAL, Take 2 tablets by mouth two [...] Dr. Andie Brian Incisional hernia repair 03/01/[address] [facility]/ Dr. Cantu. Primary fascial closure and scar excision Lap gastric byp, and nilesh-en-y gastroenterostomy w/ nilesh limb 150 cm or less [address] [facility] [facility] Social History Social History Marital status: Single Spouse name: N/A Number of children: 1 Years of education: N/A Occupational History disabled None Social History Main Topics Smoking status: Former Smoker Smokeless tobacco: Never Used Alcohol use No Drug use: No Sexual activity: Not on file Social History Narrative Updated 11/09/15 She lives in [place] with her mother and her sister (also her caregiver) lives in an apa rtment/duplex below. She has 2 grandchildren (age 4 and 7) who live with her daughter and son-in-law Her boyfriend lives in [place] HFpEF, DM2, HTN, Sleep Apnea (unable to [...] program here and refer her to our regulatory affairs specialist who also has expertise in physical [...] and documenting after this visit. Ronna SANTOSP PLEAT PATTERNMAKER Bariatric Surgery Nurse Practitioner [facility] | [address] | [place] | [address] | documented in this e ncounter Plan [...] [place] | | | | | | [address] | | | | | | [phone] | | | | | | | | +--------+ + + + + | 06/24/ | Surgery | Surgery | Chilo | OPEN VENTRAL HERNIA | | 2018 | | | MD [address] | REPAIR WITH | | | | | [address] | BIOLOGICAL MESH | | | | | [place] | | | | | | [address] | | | | | | [phone] | | | | | | | | +--------+ + + + + | 06/30/ | Office | Cardiology | Randell Franks, | | | 2019 | Visit | | [address] | | | | | | [place], [place] | | | | | | [address] | | | | | | [phone] | | | | | | | | +--------+ + + + + documented as of this encounter Results X-RAY MIRIAM CASTELLON (06/07/2018 9:47 AM PST) + + | Specimen | + + | | + + + + + | Narrative | Performed At | + + + | EXAM: Esophagram with nurse research radiograph HISTORY: RYGB 03/01/2018, | [facility] | | vomiting/pain ever since COMPARISON: 04/27/2018 CT TECHNIQUE: | RADIOLOGY VOICE | | Outgoing Inspector radiograph was performed. Single contrast exam of the esophagus, | RECOGNITION 2 | | gastric pouch, and gastrojejunostomy in upright positioning. | | | Radiation dose reduction technique was maximized where appropriate | | | using pulsed fluoroscopy and fluoro-store images. Fluoro Time 57 | | | second(s) FINDINGS: Outgoing Inspector shows stone in the upper pole of [...] AM PST EXAM: Esophagram | | with nurse research radiograph HISTORY: RYGB 03/01/2018, vomiting/pain ever since COMPARISON: | | 04/27/2018 CT TECHNIQUE: Outgoing Inspector radiograph was performed. Single contrast exam of the | | esophagus, gastric pouch, and gastrojejunostomy in upright positioning. Radiation dose | | reduction technique was maximized where appropriate using pulsed fluoroscopy and | | fluoro-store images. Fluoro Time 57 second(s) FINDINGS:Outgoing Inspector shows stone in the upper | | [...] | + + + + + | [facility] | [address] | [place] [address] | | | SERVICES, CORE | CLARENCE [...] | + + + + + | [facility] | [address] | [place] [address] | | | SERVICES, SPECIAL | PARK [...] | | | | | determined by [employer] | | | | | | Laboratories. See | | | | | | Compliance Statement B: | | | | | | [employer]/CSPerformed | | | | | | by [employer],[address] | | | | | | [facility],[place] | | | | | | [address] | | | | | | [phone].[employer]. | | | | | | [facility] hospitalsImael MD, | | | | | | [...] [facility] | [address] | [place], [place] | | | [facility] | | [address] | | + + + + + [...] [facility] | [address] | [place] [address] | | | SERVICES, CORE | PARK [...] [facility] | [address] | [place] [address] | | | SERVICES, CORE | PARK [...] | + + + + + | [facility] | [address] | [place] [address] | | | SERVICES, CORE | PARK [...] [facility] | [address] | [place] [address] | | | SERVICES, CORE | PARK [...] [facility] | [address] | [place] [address] | | | SERVICES, CORE | PARK [...] | + + + + + | [facility] | [address] | [place] [address] | | | SERVICES, LYDIA | CLARENCE [...]
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
--- OUTSIDE RECORDS SUMMARY | ~2019-06-01 | XMS | Encounter Summary ---
Demographics + + + | Address | [address] | | | [place] [address] | + + + | Home Phone [...] [place], [place] | | | | | [address] | | + + + + + | Ellie Vang | ECON | Unknown | | + + + + + Care Team Providers + +------+ + | Care Field Hockey Coach Name | Role | Phone | [...] Diabetes & | Morbid | Kathy Feliciano, GEAR SHAPER SET UP OPERATOR | [address] | | | | Metabolism | obesity | [address] | [address] | | | | | ([facility]) | [address], | [address] | | | | | Procedures | [address] | Physician's | | | | | CONSULT TO | [place], [place] | Pavilion | | | | | ENDO | [address] | Physician's | | | | | [address] | Phone: | Pavilion | | | | | [address] | [phone] | [place], [place] | | | | | | Fax: | [address] | | | | | | [phone] | Phone: | | | | | | | [phone] | | | | | | | Fax: | | | | | | | [phone] | +--------+--------+ + + + + Encounter Details +--------+ + + + + | Date | Type | Department | Care Team | Description | +--------+ + + + + | 11/15/ | Documentati | Digestive Health | Kathy Feldman, | | | 2012 | on | Center at [facility] [address] | GEAR SHAPER SET UP OPERATOR [address] | | | | | [address] | [facility] 350 | | | | | Mailcode: Center | [place], [place] | | | | | [facility] and | [address] | | | | | [facility] 2 | [phone] | | | | | [place], [place] | | | | | | [address] | | | | | | [phone] | | | +--------+ + + + [...] Rd | | | | | | [place], [place] | | | | | | [address] | | | | | | [phone] | | | | | | | | +--------+ + + + + | 06/24/ | Surgery | Surgery | Chilo, | OPEN VENTRAL HERNIA | | 2019 | | | MD Jorje [address] | REPAIR WITH | | | | | [address] | BIOLOGICAL MESH | | | | | [place], [place] | | | | | | [address] | | | | | | [phone] | | | | | | | | +--------+ + + + + | 06/30/ | Office | Cardiology | Randell Franks, | | | 2018 | Visit | | [address] | | | | | | Ave [place], [place] | | | | | | [address] | | | | | | [phone] | | | | | | | | +--------+ + + + + documented as of this encounter Visit Diagnoses + + | Diagnosis | + + | Morbid obesity (HCC) - Primary Morbid obesity | + + documented in this encounter"
--- OUTSIDE RECORDS SUMMARY | ~2019-06-01 | XMS | Encounter Summary ---
Demographics + + + | Address | [address] | | | [place] [address] | + + + | Home Phone [...] [place], [place] | | | | | [address] | | + + + + + | Ellie Vang | ECON | Unknown | | + + + + + Care Team Providers + +------+ + | Care Foundation Engineer Name | Role | Phone | [...] | 2018 | Visit | Preventive at [facility] | MD [address] | mellitus without | | | | [address] | Ave [place], [place] | complication, with | | | | Mailcode: [facility] | [address] | long-term current | | | | [facility] | [phone] | use of insulin ([facility]) | | | | and Healing, | | (Primary Dx); | | | | Building 1 | | Chronic right-sided | | | | [place], [place] | | heart failure (HCC) | | | | [address] | | | | | | [phone] | | | +--------+---------+ + + + [...] management of her heart failure by her Robotic Welder 3) Check A1c, lipids 4) Await bariatric surgery in February 2018 5) Continue phentermine 37.5 mg daily 6) Continue wound care, non-pressure ambulation of right foot wound 7) Follow-up 4-6 months In the interim, the patient underwent bariatric surgery and was discharged from the [facility] on 03[facility]03[facility]. Today, the patient [...] 06/23 - She is working with the lean manager in her office - She is taking [...] tongue once daily., Disp: , Rfl: CALCIUM CRB&GGK-B6-HOI53-GENIS ORAL, Take 2 tablets by mouth two [...] 3.19 11/28/2016 Lab Results Component Value Date [id number] 88.6 05/27/2018 Lab Results Component Value Date [...] weight of 320lbs. Plan to work with lean manager from bariatric surgery, identify etio logy of [...] is currently being managed well by her Robotic Welder with diuretics and mainte nance of her [...] Gissell Clements MD Fellow, Cardiovascular Medicine Pager [phone] signed by Gissell Clements MD at 06/04/2018 [...] Rd | | | | | | [place], [place] | | | | | | [address] | | | | | | [phone] | | | | | | | | +--------+ + + + + | 06/24/ | Surgery | Surgery | Chilo, | OPEN VENTRAL HERNIA | | 2018 | | | MD [address] | REPAIR WITH | | | | | [address] | BIOLOGICAL MESH | | | | | [place], [place] | | | | | | [address] | | | | | | [phone] | | | | | | | | +--------+ + + + + | 06/30/ | Office | Cardiology | Randell Franks, | | | 2018 | Visit | | MD [address] | | | | | | Ave [place], [place] | | | | | | [address] | | | | | | [phone] | | | | | | | [...]
--- OUTSIDE RECORDS SUMMARY | ~2019-06-01 | XMS | Encounter Summary ---
Demographics + + + | Address | [address] | | | [place] [address] | + + + | Home Phone [...] [place], [place] | | | | | [address] | | + + + + + | Ellie Vang | ECON | Unknown | | + + + + + Care Team Providers + +------+ + | Care Web Ui Software Engineer Name | Role | Phone [...] on | Center at [facility] [address] | SKIP HOIST ENGINEER [address] | | | | | [address] | [facility] 350 | | | | | Mailcode: Center | [place], [place] | | | | | [facility] and | [address] | | | | | [facility] 2 | [phone] | | | | | [place], [place] | | | | | | [address] | | | | | | [phone] | | | +--------+ + + + [...] Rd | | | | | | [place], [place] | | | | | | [address] | | | | | | [phone] | | | | | | | | +--------+ + + + + | 06/24/ | Surgery | Surgery | Chilo, | OPEN VENTRAL HERNIA | | 2018 | | | MD Jorje [address] | REPAIR WITH | | | | | [address] | BIOLOGICAL MESH | | | | | [place], [place] | | | | | | [address] | | | | | | [phone] | | | | | | | | +--------+ + + + + | 06/30/ | Office | Cardiology | Randell Franks, | | | 2018 | Visit | [address] | | | | | | Ave [place], [place] | | | | | | [address] | | | | | | [phone] | | | | | | | | +--------+ + + + + documented as of this encounter Visit Diagnoses Not on filedocumented in this encounter"
--- OUTSIDE RECORDS SUMMARY | ~2019-06-01 | XMS | Encounter Summary ---
Demographics + + + | Address | [address] | | | [place] [address] | + + + | Home Phone [...] + | Katalina Padilla | ECON | [address] | | | | | [place], [place] | | | | | [address] | | + + + + + | Ellie Vang | ECON | Unknown | | + + + + + Care Team Providers + +------+ + | Care Video Production Assistant Name | Role | Phone | [...] | HA [place] | | | with NAILER HAND | | hypertension | [address] | [address] | | | | | Right | [address] | [place] | | | | | heart | [place], [place] | [place], | | | | | failure | [address] | [place] | | | | | ([facility]) Type | Phone: | [address] | | | | | 2 diabetes | [phone] | | | | | | mellitus | Fax: | | | | | | without | [phone] | | | | | | complication | | | | | | | , with | | | | | | | long-term | | | | | | | current use | | | | | | | of insulin | | | | | | | ([facility]) | | | +--------+ + [...] | | | [address] | 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) | | | | [place], [place] | | | | | | [address] | | | | | | [phone] | | | +--------+---------+ + + + [...] Follow-Up Patient referred by: Randell Franks MD [address] [place] [address] Documented time of visit: 2:36pm to 2:49 (13 minutes kwzd-jj-zboi with patient) Surgery: Gastric Bypass Date of [...] Medications since surgery: oral - appt with train starter on the 9th Testing blood glucose: 92 [...] beef, cream of wheat, cream of mushroom, ecuadorean yogurt Fluid choices: water Supplementation: Flinstones, iron, [...] multivitamin & mineral (with iron) supplement, 2/day -4178-0421 mg calcium citrate with vitamin D/day (take in divided doses, not within 2 hour s of multivitamin or iron supplement) -500 mcg/day sublingual B12 supplement (or monthly injections) Continued to reinforce importance of mindful eating. Continue to increase physical activity. Follow up in 3 months or earlier as needed. Tejas Cevallos RD, LD Pager # [phone] signed by Tejas Cevallos RD at 05/27/2018 [...] Rd | | | | | | [place], [place] | | | | | | [address] | | | | | | [phone] | | | | | | | | +--------+ + + + + | 06/24/ | Surgery | Surgery | Chilo, | OPEN VENTRAL HERNIA | | 2018 | | | MD [address]ond [address] | REPAIR WITH | | | | | [address] | BIOLOGICAL MESH | | | | | [place], [place] | | | | | | [address] | | | | | | [phone] | | | | | | | | +--------+ + + + + | 06/30/ | Office | Cardiology | Randell Franks, | | | 2019 | Visit | | [address] | | | | | | [place], [place] | | | | | | [address] | | | | | | [phone] | | | | | | | | +--------+ + + + + documented as of this encounter Procedures + +--------+ + + + | Procedure Name | Priori | Date/Time | Associated Diagnosis | Comments | | | ty | | | | + +--------+ + + + | NM MNT RE-ASSESSMNT | Routin | 05/27/2018 | [...]
--- OUTSIDE RECORDS SUMMARY | ~2019-06-01 | XMS | Encounter Summary ---
Demographics + + + | Address | [address] | | | [place] [address] | + + + | Home Phone [...] + | Katalina Padilla | ECON | [address] | | | | | [place], [place] | | | | | [address] | | + + + + + | Ellie Vang | ECON | Unknown | | + + + + + Care Team Providers + +------+ + | Care Cylinder Honer Name | Role | Phone | + [...] | | 2018 | | Preventive at [facility] | MD [address] | (Phentermine 37.5mg) | | | | [address] | [place], [place] | | | | | Mailcode: [facility] | [address] | | | | | [facility] | [phone] | | | | | and Erick, | | | | | | Building [address] | | | | | | [place], [place] | | | | | | [address] | | | | | | [phone] | | | +--------+ + + + [...] | +--------+ + + + + | 11// | Telephone-S | Pre-operative | | | [...] Rd | | | | | | [place] | | | | | | [address] | | | | | | [phone] | | | | | | | | +--------+ + + + + | 06/24/ | Surgery | Surgery | Chilo, | OPEN VENTRAL HERNIA | | 2018 | | | MD [address] | REPAIR WITH | | | | | [address] | BIOLOGICAL MESH | | | | | [place], [place] | | | | | | [address] | | | | | | [phone] | | | | | | | | +--------+ + + + + | 06/30/ | Office | Cardiology | Randell Franks, | | | 2019 | Visit | | MD [address] | | | | | | [place], [place] | | | | | | [address] | | | | | | [phone] | | | | | | | | +--------+ + + + + documented as of this encounter Visit Diagnoses Not on filedocumented in this encounter"
--- OUTSIDE RECORDS SUMMARY | ~2019-06-01 | XMS | Encounter Summary ---
Demographics + + + | Address | [address] | | | [place] [address] | + + + | Home Phone [...] [place], [place] | | | | | [address] | | + + + + + | Ellie Vang | ECON | Unknown | | + + + + + Care Team Providers + +------+ + | Care Dust Collector Operator Name | Role | Phone | [...] | | | | | | [place] [address] | | | +--------+ + + + [...] Rd | | | | | | [place], [place] | | | | | | [address] | | | | | | [phone] | | | | | | | | +--------+ + + + + | 06/24/ | Surgery | Surgery | Chilo, | OPEN VENTRAL HERNIA | | 2018 | | | MD [address]ond [address] | REPAIR WITH | | | | | [address] | BIOLOGICAL MESH | | | | | [place], [place] | | | | | | [address] | | | | | | [phone] | | | | | | | | +--------+ + + + + | 06/30/ | Office | Cardiology | Randell Franks, | | | 2018 | Visit | | MD [address] | | | | | | [place], [place] | | | | | | [address] | | | | | | [phone] | | | | | | | | +--------+ + + + + documented as of this encounter Visit Diagnoses Not on filedocumented in this encounter"
--- OUTSIDE RECORDS SUMMARY | ~2019-06-01 | XMS | Encounter Summary ---
Demographics + + + | Address | [address] | | | [place] [address] | + + + | Home Phone [...] + | Katalina Padilla | ECON | [address] | | | | | [place], [place] | | | | | [address] | | + + + + + | Ellie Vang | ECON | Unknown | | + + + + + Care Team Providers + +------+ + | Care Morgue Technician Name | Role | Phone | [...] | | | [address] | [place], [place] | | | | | [facility] | [address] | | | | | Rd Mailcode: UHN83 | [phone] | | | | | Francesco Peres | | | | | | [address] [place], [place] | | | | | | [address] | | | | | | [phone] | | | +--------+ + + + [...] Rd | | | | | | [place], [place] | | | | | | [address] | | | | | | [phone] | | | | | | | | +--------+ + + + + | 06/24/ | Surgery | Surgery | Chilo, | OPEN VENTRAL HERNIA | | 2018 | | | MD Jorje [address] | REPAIR WITH | | | | | [address] | BIOLOGICAL MESH | | | | | [place], [place] | | | | | | [address] | | | | | | [phone] | | | | | | | | +--------+ + + + + | 06/30/ | Office | Cardiology | Randell Franks, | | | 2018 | Visit | | [address] | | | | | | [place], [place] | | | | | | [address] | | | | | | [phone] | | | | | | | | +--------+ + + + + documented as of this encounter Visit Diagnoses Not on filedocumented in this encounter"
--- OUTSIDE RECORDS SUMMARY | ~2019-06-01 | XMS | Encounter Summary ---
Demographics + + + | Address | [address] | | | [place] [address] | + + + | Home Phone [...] + | Katalina Padilla | ECON | [address] | | | | | [place], [place] | | | | | [address] | | + + + + + | Ellie Vang | ECON | Unknown | | + + + + + Care Team Providers + +------+ + | Care Artist Manager Name | Role | Phone | [...] | | | | | | | [address] | | | | | | | [address] | | | | | | | [place], | | | | | | | [place] | | | | | | | [address] | | | | | | | Phone: | | | | | | | [phone] | | | | | | | Fax: | | | | | | | [phone] | +--------+--------+ + + + + Encounter Details +--------+---------+ + + + | Date | Type | Department | Care Team | Description | +--------+---------+ + + + | 04/14/ | Office | Digestive Health | Hernandez Brian, | Morbid obesity (HCC) | | 2013 | Visit | Center at [facility] [address] | [address] | (Primary Dx); Type | | | | [address] | [address] | 2 diabetes mellitus | | | | Mailcode: Center | [place], [place] | ([facility]); AMARA | | | | for Health and | [address] | (obstructive sleep | | | | [facility] | [phone] | apnea); Edema | | | | [place], [place] | | | | | | [address] | | | | | | [phone] | | | +--------+---------+ + + + [...] this year, she was tr ansferred from [place] for surgical evaluation of possible incarcerated ventral [...] with close followup by her PCP in [place] in the interim. Dr. Guillory in [place] has been following her since January, with CT scan obtained at [facility] in [place] 02/09/2013 (images in IMPAX), demonstrating "recurrent hypogastric [...] to follow up with her providers at [facility] to include a visi t to our [...] r weight loss efforts. She saw a mineral industry teacher today and Mleida came in to discuss bariatric sarahi cklist [...] and well perfused. 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 There is a well [...] Rd | | | | | | [place], [place] | | | | | | [address] | | | | | | [phone] | | | | | | | | +--------+ + + + + | 06/24/ | Surgery | Surgery | Chilo | OPEN VENTRAL HERNIA | | 2018 | | | MD Demond Recinos [address] | REPAIR WITH | | | | | [address] | BIOLOGICAL MESH | | | | | [place], [place] | | | | | | [address] | | | | | | [phone] | | | | | | | | +--------+ + + + + | 06/30/ | Office | Cardiology | Randell Franks, | | | 2019 | Visit | | MD [address] | | | | | | [place] [place], [place] | | | | | | [address] | | | | | | [phone] | | | | | | | | +--------+ + + + + documented as of this encounter Visit Diagnoses + + | Diagnosis | + + | Morbid obesity (HCC) - Primary Morbid obesity | + + | Type 2 diabetes mellitus ([facility]) Type II or unspecified type diabetes mellitus without | | mention of complication, not stated as uncontrolled | + + | AMARA (obstructive sleep apnea) Obstructive sleep apnea (adult) (pediatric) | + + | Edema | + + documented in this encounter
--- OUTSIDE RECORDS SUMMARY | ~2019-06-01 | XMS | Encounter Summary ---
Demographics + + + | Address | [address] | | | [place] [address] | + + + | Home Phone [...] [place], [place] | | | | | [address] | | + + + + + | Ellie Vang | ECON | Unknown | | + + + + + Care Team Providers + +------+ + | Care Credit Report Checker Name | Role | Phone | [...] | | | | | | | [place], [place] | | | | | | | [address] | | | | | | | Phone: | | | | | | | [phone] | | | | | | | Fax: | | | | | | | [phone] | +--------+--------+ + + + + Encounter [...] | | | [address] | [facility] [place] | Dx) | | | | Mailcode: L223A | [address] | | | | | [facility] | [phone] | | | | | [address] [facility] [place] | | | | | | [address] | | | | | | [phone] | | | +--------+---------+ + + + [...] MD,MPH - 11/05/2015 2:09 PM PDT [facility] Department of Surgery EGS/TRAUMA Surgery Clinic Note [...] 500 mg by mouth once daily. CALCIUM CRB&LQL-E0-CRD89-GENIS ORAL Take 1 tablet by mouth two [...] answered. Christian Rocha MD MPH FACS [facility] work ticket distributor Trauma, Critical Care & Acute Care Surgery [facility] [phone] documented in thi s encounter Plan of [...] Rd | | | | | | [place], [place] | | | | | | [address] | | | | | | [phone] | | | | | | | | +--------+ + + + + | 06/24/ | Surgery | Surgery | Chilo, | OPEN VENTRAL HERNIA | | 2018 | | | MD [address]ond [address] | REPAIR WITH | | | | | [address] | BIOLOGICAL MESH | | | | | [place], [place] | | | | | | [address] | | | | | | [phone] | | | | | | | | +--------+ + + + + | 06/30/ | Office | Cardiology | Randell Franks, | | | 2018 | Visit | | MD [address] | | | | | | Ave [place], [place] | | | | | | [address] | | | | | | [phone] | | | | | | | | +--------+ + + + + documented as of this encounter Visit Diagnoses + + | Diagnosis | + + | Ventral hernia without obstruction or gangrene - Primary Ventral hernia, unspecified, | | without mention of obstruction or gangrene | + + documented in this encounter"
--- OUTSIDE RECORDS SUMMARY | ~2019-06-01 | XMS | Encounter Summary ---
Demographics + + + | Address | [address] | | | [place] [address] | + + + | Home Phone [...] [place], [place] | | | | | [address] | | + + + + + | Ellie Vang | ECON | Unknown | | + + + + + Care Team Providers + +------+ + | Care Big 6 Dealer Name | Role | Phone | [...] Rd | | | | | | [place], [place] | | | | | | [address] | | | | | | [phone] | | | | | | | | +--------+ + + + + | 06/24/ | Surgery | Surgery | Chilo, | OPEN VENTRAL HERNIA | | 2018 | | | MD Jorje [address] | REPAIR WITH | | | | | [address] | BIOLOGICAL MESH | | | | | [place], [place] | | | | | | [address] | | | | | | [phone] | | | | | | | | +--------+ + + + + | 06/30/ | Office | Cardiology | Randell Franks, | | | 2018 | Visit | | [address] | | | | | | [place], [place] | | | | | | [address] | | | | | | [phone] | | | | | | | | +--------+ + + + + documented as of this encounter Visit Diagnoses Not on filedocumented in this encounter"
--- OUTSIDE RECORDS SUMMARY | ~2019-06-01 | XMS | Encounter Summary ---
Demographics + + + | Address | [address] | | | [place] [address] | + + + | Home Phone [...] + | Katalina Padilla | ECON | [address] | | | | | [place], [place] | | | | | [address] | | + + + + + | Ellie Vang | ECON | Unknown | | + + + + + Care Team Providers + +------+ + | Care Repossessor Name | Role | Phone | + +------+ + | Kenyatta Cardenas MD | PCP | | + +------+ + Encounter Details +--------+---------+ + + + | Date | Type | Department | Care Team | Description | +--------+---------+ + + + | 06/14/ | Office | Cardiology | Randell Franks, | Type 2 diabetes | | 2019 | Visit | Preventive at [facility] | MD Deion Farris | mellitus without | | | | [address] | Ave [place], [place] | complication, with | | | | Mailcode: CH9A | [address] | long-term current | | | | [facility] | [phone] | use of insulin ([facility]) | | | | and Healing, | | (Primary Dx); | | | | [address] | | Morbid obesity with | | | | [place], [place] | | BMI of 70 and over, | | | | [address] | | adult (HCC) | | | | [phone] | | | +--------+---------+ + + + [...] lbs Phentermine started Type 2 diabetes mellitus ([facility]) 04/14/2013 Priority: 5 Iron deficiency anemia due to chronic blood loss 11/11/2015 Priority: 6 Overview Note: Ferritin 18 on 10/2015 Hypoalbuminemia (no proteinuria, need to rule out synthetic, nutrition, loss) 6 Priority: 6 Hypothyroidism 08/28/2014 Priority: 8 Morbid obesity with BMI of 70 and over, adult ([facility]) 02/02/2017 Chronic diastolic heart failure [...] daily. BELBUCA 300 mcg buccal film CALCIUM CRB&YAU-X0-ICP16-GENIS ORAL Take 2 tablets by mouth two [...] of metformin, and she reports her last issql-bk-ghxa A1 c was 5.5% on this dose. [...] CREATININE PLASMA (LAB) 0.85 0.70 EGFR - MALTESE >60 >60 EGFR NON -MALTESE >60 >60 GLUCOSE, PLASMA (LAB) 123 (H) [...] is currently being managed well by her Chin Strap Maker with diuretics and main tenance of [...] management of her heart failure by her Chin Strap Maker 3) discontinue metformin 4) check 24 [...] Rd | | | | | | [place], [place] | | | | | | [address] | | | | | | [phone] | | | | | | | | +--------+ + + + + | 06/24/ | Surgery | Surgery | Chilo, | OPEN VENTRAL HERNIA | | 2018 | | | MD Jorje [address] | REPAIR WITH | | | | | [address] | BIOLOGICAL MESH | | | | | [place], [place] | | | | | | [address] | | | | | | [phone] | | | | | | | | +--------+ + + + + | 06/30/ | Office | Cardiology | Randell Franks, | | | 2019 | Visit | | MD [address] | | | | | | [place], [place] | | | | | | [address] | | | | | | [phone] | | | | | | | [...] + + | [facility] - | [address] | [place] | [phone] | | SAIMA | | | | [...]
--- OUTSIDE RECORDS SUMMARY | ~2019-06-01 | XMS | Encounter Summary ---
Demographics + + + | Address | [address] | | | [place] [address] | + + + | Home Phone [...] [place], [place] | | | | | [address] | | + + + + + | Ellie Vang | ECON | Unknown | | + + + + + Care Team Providers + +------+ + | Care First Leveler Name | Role | Phone | + [...] + + | 02/07/ | Hospital | [address] | [place], | | | 2014 - | Encounter | [address] | [address] | | | | | [place], [place] | [address] | | | 02/08/ | | [address] | [place], [place] | | | 2013 | | [phone] | [address] | | | | | | [phone] | | | | | | | [...] the resident s note. PRADIP STARR MD [facility] [address] [facility] [place] [address] orrMaryam hill MD - 1:05 PM PDT [facility] DEPARTMENT OF SURGERY EMERGENCY GENERAL SURGERY [...] 2 DM who presented to the [facility] ED ([place], [place]) on 02/06/14, with a week hi story of RUQ abdominal pain that radiates to her back. There, she was found to have leukocyt osis and multiple tiny, mobile stones, + sonographic Peterson's sign on abdominal ultrasound, concerning for acute cholecystitis. She was givenIV antibiotics (cipro, flagyl) and pain med s, then transferred to [facility] by [facility] for further care. Ms. Romero endorsed [...] up with Trauma Emergency General Surgery at [facility] In 4 weeks. (follow up in 2-4 weeks ) Contact information [address] [facility] Mailcode: L223a Lionelyiarmen [address] [place] [address] Thank you for the [...] the resident s note. PRADIP STARR MD [facility] [address] [facility] [place] [address] orrMaryam hill MD - 5:17 AM PDT [facility] DEPARTMENT OF SURGERY EMERGENCY GENERAL SURGERY Division [...] tolerated MARYAM RHODES MD PGY-1, General Surgery [id number] pager number [facility] [place] A [address] [facility] [address] documented in this encoun ter Plan of [...] Rd | | | | | | [place], [place] | | | | | | [address] | | | | | | [phone] | | | | | | | | +--------+ + + + + | 06/24/ | Surgery | Surgery | Chilo, | OPEN VENTRAL HERNIA | | 2018 | | | MD Jorje [address] | REPAIR WITH | | | | | [address] | BIOLOGICAL MESH | | | | | [place], [place] | | | | | | [address] | | | | | | [phone] | | | | | | | | +--------+ + + + + | 06/30/ | Office | Cardiology | Randell Franks, | | | 2018 | Visit | | [address] | | | | | | Ave [place], [place] | | | | | | [address] | | | | | | [phone] | | | | | | | [...] AMES | [address] | [place], [place] | | | [facility] POINT OF CARE | [address] | [address] | | | TESTS | | | [...] MARQUAM | [address] | [place], [place] | | | JUSTINE DAWN OF CARE | [facility] | [address] | | | TESTS | | | [...] MARQUAM | [address] | [place], [place] | | | JUSTINE DAWN OF JAKY | [facility] | [address] | | | TESTS | | | [...] AMES | [address] | [place], [place] | | | JUSTINE DAWN OF CARE | [address] | [address] | | | TESTS | | | [...] [facility] | [address] | [place] [address] | | | SERVICES, | [address] [...] | + + + + + | [facility] | [address] | [place] [address] | | | SERVICES, | [address] [...] KWAKU | [address] | [place], [place] | | | JUSTINE DAWN OF JAKY | [address] | [address] | | | TESTS | | | [...] [facility] | [address] | [place] [address] | | | LYDIA RANGEL | [address]ENCE [...] [facility] | [address] | [place] [address] | | | SERVICES, CORE | [address] [...] | + + + + + | [facility] | [address] | [place] [address] | | | SERVICES, CORE | [address] [...] | + + + + + | [facility] | [address] [facility] | [place] [address] | | | SERVICES, CORE | CLARENCE [...] | | | LABORATORY | | | SOLOMON ISLANDER | | | SERVICES, | | [...] | + + + + + | [facility] | [address] | [place] [address] | | | SERVICES, CORE | CLARENCE [...] (H) | 60 - 99 mg/dL | [facility] - | | | [...] AMES | [address] | [place], [place] | | | JUSTINE DAWN OF CARE | [address] | [address] | | | TESTS | | | [...] pattern. | | | | | | Automation Tester | | | | | | sections [...] + + + | [facility] | [address] | [place] [address] | | | PATHOLOGY | [address] [...]
--- OUTSIDE RECORDS SUMMARY | ~2019-06-01 | XMS | Encounter Summary ---
Demographics + + + | Address | [address] | | | [place] [address] | + + + | Home Phone [...] [place], [place] | | | | | [address] | | + + + + + | Ellie Vang | ECON | Unknown | | + + + + + Care Team Providers + +------+ + | Care Diabetes Solutions Specialist Name | Role | Phone | + +------+ + | Fadi Goodrich DO | PCP | | + +------+ + Encounter Details +--------+------+ + + + | Date | Type | Department | Care Team | Description | +--------+------+ + + + | 06/16/ | Lab | Laboratory at [facility] | | Morbid obesity with | | 2012 | | [address] | | BMI of 70 and over, | | | | [place], [place] | | adult (HCC); Vitamin | | | | [address] | | D deficiency | | | | [phone] | | disease; | | | | [...] Rd | | | | | | [place], [place] | | | | | | [address] | | | | | | [phone] | | | | | | | | +--------+ + + + + | 06/24/ | Surgery | Surgery | Chilo, | OPEN VENTRAL HERNIA | | 2018 | | | MD Jorje [address] | REPAIR WITH | | | | | [address] | BIOLOGICAL MESH | | | | | [place], [place] | | | | | | [address] | | | | | | [phone] | | | | | | | | +--------+ + + + + | 06/30/ | Office | Cardiology | Randell Franks, | | | 2018 | Visit | | [address] | | | | | | Ave [place], [place] | | | | | | [address] | | | | | | [phone] | | | | | | | [...] | | | PST | over, adult ([facility]) | results section. | | | | | Vitamin D deficiency | | | | | | disease | | | | | | Intertriginous | | | | | | candidiasis | | | | | | 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| | ([facility]) HTN | | | | | [...] | | | | obesity ([facility]) PCOS | | | | | [...] | | | | | | by [facility],[address] | | | | | [address], [place] | | | | | | [address] | | | | | | [phone] | | | | | | Mt [...] at | | | | | | [employer] [facility] | | | | | | developed and | | | | | | characteristics | | | | | | determined by | | | | | | [facility]. See | | | | | | Compliance Statement B: | | | | | | [employer] | | | | + + + + + + + + | Specimen | + + | Blood - Blood | + + + + + + + | Performing | Address | City/State/Zipcode | Phone Number | | Organization | | | | + + + + + | [facility] | [address] | [place], [place] | | | [facility] | | [address] | | + + + + + [...]
--- OUTSIDE RECORDS SUMMARY | ~2019-06-01 | XMS | Encounter Summary ---
Demographics + + + | Address | [address] | | | [place] [address] | + + + | Home Phone [...] [place], [place] | | | | | [address] | | + + + + + | Ellie Vang | ECON | Unknown | | + + + + + Care Team Providers + +------+ + | Care Test Manager Name | Role | Phone | [...] 2014 | | Center at [facility] [address] | [address] | (11/03 and 11/06 phone | | | | [address] | Lesly Gutiérrez [place], | calls) | | | | Mailcode: [place] | [place] [address] | | | | | for Health and | | | | | | [facility], [facility] 2 | | | | | | [place], [place] | | | | | | [address] | | | | | | [phone] | | | +--------+ + + + [...] Rd | | | | | | [place] | | | | | | [address] | | | | | | [phone] | | | | | | | | +--------+ + + + + | 06/24/ | Surgery | Surgery | Chilo | OPEN VENTRAL HERNIA | | 2019 | | | MD [address] | REPAIR WITH | | | | | [address] | BIOLOGICAL MESH | | | | | [place] | | | | | | [address] | | | | | | [phone] | | | | | | | | +--------+ + + + + | 06/30/ | Office | Cardiology | Randell Franks, | | | 2019 | Visit | | [address] | | | | | | [place], [place] | | | | | | [address] | | | | | | [phone] | | | | | | | | +--------+ + + + + documented as of this encounter Visit Diagnoses Not on filedocumented in this encounter"
--- OUTSIDE RECORDS SUMMARY | ~2019-06-01 | XMS | Encounter Summary ---
Demographics + + + | Address | [address] | | | [place] [address] | + + + | Home Phone [...] [place], [place] | | | | | [address] | | + + + + + | Ellie Vang | ECON | Unknown | | + + + + + Care Team Providers + +------+ + | Care Masking Machine Operator Name | Role | Phone [...] Lesly | | | | | Mailcode: [place] | [place], [place] | | | | | [facility] and | [address] | | | | | [facility] 2 | [phone] | | | | | [place], [place] | | | | | | [address] | | | | | | [phone] | | | +--------+ + + + [...] Rd | | | | | | [place], [place] | | | | | | [address] | | | | | | [phone] | | | | | | | | +--------+ + + + + | 06/24/ | Surgery | Surgery | Chilo | OPEN VENTRAL HERNIA | | 2018 | | | MD Jorje [address] | REPAIR WITH | | | | | [address] | BIOLOGICAL MESH | | | | | [place], [place] | | | | | | [address] | | | | | | [phone] | | | | | | | | +--------+ + + + + | 06/30/ | Office | Cardiology | Randell Franks, | | | 2018 | Visit | | [address] | | | | | | Ave [place], [place] | | | | | | [address] | | | | | | [phone] | | | | | | | | +--------+ + + + + documented as of this encounter Visit Diagnoses Not on filedocumented in this encounter"
--- OUTSIDE RECORDS SUMMARY | ~2019-06-01 | XMS | Encounter Summary ---
Demographics + + + | Address | [address] | | | [place] [address] | + + + | Home Phone [...] + | Katalina Padilla | ECON | [address] | | | | | [place], [place] | | | | | [address] | | + + + + + | Ellie Vang | ECON | Unknown | | + + + + + Care Team Providers + +------+ + | Care Bus Van Driver Name | Role | Phone | + +------+ + | Fadi Goodrich DO | PCP | | + +------+ + Encounter Details +--------+ + + + + | Date | Type | Department | Care Team | Description | +--------+ + + + + | 08/16/ | Abstract | Digestive Health | Kathy Feldman, | | | 2013 | | Center at [facility] [address] | VOCATIONAL GUIDANCE COUNSELOR [address] | | | | | [address] | [facility] [address] | | | | | Mailcode: Center | [place], [place] | | | | | [facility] and | [address] | | | | | [facility] 2 | [phone] | | | | | [place], [place] | | | | | | [address] | | | | | | [phone] | | | +--------+ + + + [...] Rd | | | | | | [place], [place] | | | | | | [address] | | | | | | [phone] | | | | | | | | +--------+ + + + + | 06/24/ | Surgery | Surgery | Chilo | OPEN VENTRAL HERNIA | | 2018 | | | MD Jorje [address] | REPAIR WITH | | | | | [address] | BIOLOGICAL MESH | | | | | [place], [place] | | | | | | [address] | | | | | | [phone] | | | | | | | | +--------+ + + + + | 06/30/ | Office | Cardiology | Randell Franks, | | | 2018 | Visit | | [address] | | | | | | [address] [place], [place] | | | | | | [address] | | | | | | [phone] | | | | | | | | +--------+ + + + + documented as of this encounter Visit Diagnoses Not on filedocumented in this encounter"
--- OUTSIDE RECORDS SUMMARY | ~2019-06-01 | XMS | Encounter Summary ---
Demographics + + + | Address | [address] | | | [place] [address] | + + + | Home Phone [...] [place], [place] | | | | | [address] | | + + + + + | Ellie Vang | ECON | Unknown | | + + + + + Care Team Providers + +------+ + | Care Production Line Technician Name | Role | Phone | [...] Giles | | | | | | [facility] | [facility] | | | | | | [facility] | Brock Mailcode: | | | | | | [facility] | [address] | | | | | | [place], [place] | Phsyicians | | | | | | [address] | [address] | | | | | | Phone: | [place], [place] | | | | | | [phone] | [address] | | | | | | | Phone: | | | | | | | [phone] | | | | | | | Fax: | | | | | | | [phone] | +--------+--------+ + + + + Encounter [...] [facility] [address] | Clarence Gutiérrez [place], | | | | | [address] | [place] [address] | | | | | Mailcode: [address] | [phone] | | | | | [facility] | | | | | | [address] [place], [place] | | | | | | [address] | | | | | | [phone] | | | +--------+---------+ + + + [...] Axel Gonzales MD - 03/06/2014 1[facility]15 [facility] Attending: Tam [...] a HIDA scan to be done in [place] to verify that she does not have [...] Surgery Resident Department of General Surgery Pager: [phone] I saw and evaluated the patient. I agree with the findings and the plan of care as dequan han in the resident s note. PRADIP STARR MD [facility] GENERAL SURGERY AT [facility] [address] [facility] Mailcode: [address] [place] [address] documented in this encoun ter [...] Rd | | | | | | [place], [place] | | | | | | [address] | | | | | | [phone] | | | | | | | | +--------+ + + + + | 06/24/ | Surgery | Surgery | Chilo, | OPEN VENTRAL HERNIA | | 2018 | | | MD [address] | REPAIR WITH | | | | | [address] | BIOLOGICAL MESH | | | | | [place], [place] | | | | | | [address] | | | | | | [phone] | | | | | | | | +--------+ + + + + | 06/30/ | Office | Cardiology | Randell Franks, | | | 2019 | Visit | | MD [address] | | | | | | [address] [place], [place] | | | | | | [address] | | | | | | [phone] | | | | | | | [...] | + + + + + | [facility] | [address] | [place] [address] | | | SERVICES, CORE | [address] | | | + + + + + documented in this encounter Visit Diagnoses + + | Diagnosis | + + | Cholecystitis - Primary Cholecystitis, unspecified | + + documented in this encounter
--- OUTSIDE RECORDS SUMMARY | ~2019-06-01 | XMS | Encounter Summary ---
Demographics + + + | Address | [address] | | | [place] [address] | + + + | Home Phone [...] [place], [place] | | | | | [address] | | + + + + + | Ellie Vang | ECON | Unknown | | + + + + + Care Team Providers + +------+ + | Care Gas Well Drilling Manager Name | Role | Phone | [...] + + | 03/01/ | Hospital | [facility] [address] | Ion Castanon, | | | 2018 - | Encounter | [address] | [address] | | | | | [place], [place] | [place] | | | 03/03/ | | [address] | [address] | | | 2017 | | [phone] | [phone] | | | | | | | [...] ACNP - 03/03/2018 9:49 AM PDT [facility] RED SURGERY INPATIENT DISCHARGE SUMMARY Author: [...] to a bariatric full liquid diets. Our [facility] dietitian was consulted and [...] at minimum. 5. Follow with PCP for Jamb Cutter within 1 - 2 weeks of discharge [...] mg by mouth two times daily. CALCIUM CRB&[id number]-[id number]-GENIS ORAL Take 2 tablets by mouth two [...] or Kefir, [place] Yogurt, and [place] i [place] Yogurt are common brands with beneficial probiotics. [...] are available over the counter at most [facility] [employer] stores. Nausea/Vomiting/Difficulty Swallowing Nausea/Vomiting/Difficulty swallowing: Could be [...] hours per your instructions. Some medications, like [place], have Tylenol in it. Make sure you [...] hours by calling the surgery office at [phone]. - After hours, weekends and holidays, you may call the hospital telephone plant power operator at [phone] an d have the ammunition storage superintendent Red Surgery Team paged. OTHER DISCHARGE ORDERS [...] at minimum. 5. Follow with PCP for Jamb Cutter within 1 - 2 weeks of discharge [...] Department Dept Phone Center 03/10/2018 1:30 PM [facility] at [facility] 6th Floor [phone] FO OD AND NUT 03/10/2018 3:05 PM [facility] Digestive [facility] Center at [facility] 6th Floor [phone] [facility] 04/01/2018 10:30 AM [facility] at [facility] 6th Floor [phone] FO OD AND NUT 04/01/2018 11:00 AM Ion Castanon [facility] at [facility] 6th Floor [phone] [facility] 05/27/2018 2:30 PM [facility] Digestive [facility] at [facility] 6th Floor [phone] FO OD AND NUT 05/27/2018 3:05 PM [facility] Digestive [facility] Center at [facility] 6th Floor [phone] [facility] 05/27/2018 4:30 PM [facility] at [facility] 15th Floor [phone] Comprehensiv 06/04/2018 10:35 AM Randell Franks Cardiology Preventive at [facility] [phone] Cardiology Discharging Physician: KAIN Agee Attending Physician: Ion Castanon MD [facility] Surgery Pager# [phone] 9:50 AM 03/03/2018 documented in this enco [...] | | 0 | | | | CRB&[id number]-GEN | mouth two times | | | [...] date of discharge 03/03/18 PARTHA Calixto MS3 [facility] Demarcus Menon MD - [...] for care ride home (pt lives in [place]) Demarcus Alas M.D. General Surgery Resident PGY-1 Pager: [phone] Ion Ferrari MD - 10:00 AM PD[address] [...] Rd | | | | | | [facility] [place] | | | | | | [address] | | | | | | [phone] | | | | | | | | +--------+ + + + + | 06/24/ | Surgery | Surgery | Chilo, | OPEN VENTRAL HERNIA | | 2018 | | | MD Jor[address] | REPAIR WITH | | | | | [address] | BIOLOGICAL MESH | | | | | [facility] [place] | | | | | | [address] | | | | | | [phone] | | | | | | | | +--------+ + + + + | 06/30/ | Office | Cardiology | Randell Franks, | | | 2018 | Visit | | [address] | | | | | | [place], [place] | | | | | | [address] | | | | | | [phone] | | | | | | | [...] POC | | PDT | over, adult ([facility]) | results section. | + +--------+ + + + | CAPILLARY BLOOD | Routin | 03/03/2018 | Morbid obesity | Results for this | | GLUCOSE (NO CHG), | e | 7:54 AM | with BMI of 70 and | procedure are in the | | POC | | PDT | over, adult ([facility]) | results section. | + +--------+ + + + | CAPILLARY BLOOD | Routin | 03/03/2018 | Morbid obesity | Results for this | | GLUCOSE (NO CHG), | e | 6:28 AM | with BMI of 70 and | procedure are in the | | POC | | PDT | over, adult ([facility]) | results section. | + +--------+ + + + | CAPILLARY BLOOD | Routin | 03/02/2018 | Morbid obesity | Results for this | | GLUCOSE (NO CHG), | e | 9:17 PM | with BMI of 70 and | procedure are in the | | POC | | PDT | over, adult ([facility]) | results section. | + +--------+ + + + | CAPILLARY BLOOD | Routin | 03/02/2018 | Morbid obesity | Results for this | | GLUCOSE (NO CHG), | e | 6:50 PM | with BMI of 70 and | procedure are in the | | POC | | PDT | over, adult ([facility]) | results section. | + +--------+ + + + | CAPILLARY BLOOD | Routin | 03/02/2018 | Morbid obesity | Results for this | | GLUCOSE (NO CHG), | e | 3:46 PM | with BMI of 70 and | procedure are in the | | POC | | PDT | over, adult ([facility]) | results section. | + +--------+ + + + | CAPILLARY BLOOD | Routin | 03/02/2018 | Morbid obesity | Results for this | | GLUCOSE (NO CHG), | e | 2:36 PM | with BMI of 70 and | procedure are in the | | POC | | PDT | over, adult ([facility]) | results section. | + +--------+ + + + | CAPILLARY BLOOD | Routin | 03/02/2018 | Morbid obesity | Results for this | | GLUCOSE (NO CHG), | e | 1:33 PM | with BMI of 70 and | procedure are in the | | POC | | PDT | over, adult ([facility]) | results section. | + +--------+ + + + | CAPILLARY BLOOD | Routin | 03/02/2018 | Morbid obesity | Results for this | | GLUCOSE (NO CHG), | e | 11:36 AM | with BMI of 70 and | procedure are in the | | POC | | PDT | over, adult ([facility]) | results section. | + +--------+ + + + | CAPILLARY BLOOD | Routin | 03/02/2018 | Morbid obesity | Results for this | | GLUCOSE (NO CHG), | e | 10:32 AM | with BMI of 70 and | procedure are in the | | POC | | PDT | over, adult ([facility]) | results section. | + +--------+ + + + | CAPILLARY BLOOD | Routin | 03/02/2018 | Morbid obesity | Results for this | | GLUCOSE (NO CHG), | e | 9:23 AM | with BMI of 70 and | procedure are in the | | POC | | PDT | over, adult ([facility]) | results section. | + +--------+ + + + | CAPILLARY BLOOD | Routin | 03/02/2018 | Morbid obesity | Results for this | | GLUCOSE (NO CHG), | e | 8:36 AM | with BMI of 70 and | procedure are in the | | POC | | PDT | over, adult ([facility]) | results section. | + +--------+ + + + | CAPILLARY BLOOD | Routin | 03/02/2018 | Morbid obesity | Results for this | | GLUCOSE (NO CHG), | e | 7:35 AM | with BMI of 70 and | procedure are in the | | POC | | PDT | over, adult ([facility]) | results section. | + +--------+ + + + | CAPILLARY BLOOD | Routin | 03/02/2018 | Morbid obesity | Results for this | | GLUCOSE (NO CHG), | e | 6:33 AM | with BMI of 70 and | procedure are in the | | POC | | PDT | over, adult ([facility]) | results section. | + +--------+ + + + | CAPILLARY BLOOD | Routin | 03/02/2018 | Morbid obesity | Results for this | | GLUCOSE (NO CHG), | e | 5:28 AM | with BMI of 70 and | procedure are in the | | POC | | PDT | over, adult ([facility]) | results section. | + +--------+ + + + | CAPILLARY BLOOD | Routin | 03/02/2018 | Morbid obesity | Results for this | | GLUCOSE (NO CHG), | e | 4:36 AM | with BMI of 70 and | procedure are in the | | POC | | PDT | over, adult ([facility]) | results section. | + +--------+ + + + | CAPILLARY BLOOD | Routin | 03/02/2018 | Morbid obesity | Results for this | | GLUCOSE (NO CHG), | e | 2:46 AM | with BMI of 70 and | procedure are in the | | POC | | PDT | over, adult ([facility]) | results section. | + +--------+ + + + | CAPILLARY BLOOD | Routin | 03/02/2018 | Morbid obesity | Results for this | | GLUCOSE (NO CHG), | e | 12:32 AM | with BMI of 70 and | procedure are in the | | POC | | PDT | over, adult ([facility]) | results section. | + +--------+ + + + | CAPILLARY BLOOD | Routin | 03/01/2018 | Morbid obesity | Results for this | | GLUCOSE (NO CHG), | e | 10:31 PM | with BMI of 70 and | procedure are in the | | POC | | PDT | over, adult ([facility]) | results section. | + +--------+ + + + | CAPILLARY BLOOD | Routin | 03/01/2018 | Morbid obesity | Results for this | | GLUCOSE (NO CHG), | e | 8:21 PM | with BMI of 70 and | procedure are in the | | POC | | PDT | over, adult ([place] [...] POC | | PDT | over, adult ([facility]) | results section. | + +--------+ + + + | CAPILLARY BLOOD | Routin | 03/01/2018 | Morbid obesity | Results for this | | GLUCOSE (NO CHG), | e | 3:31 PM | with BMI of 70 and | procedure are in the | | POC | | PDT | over, adult ([facility]) | results section. | + +--------+ + + + | CAPILLARY BLOOD | Routin | 03/01/2018 | Morbid obesity | Results for this | | GLUCOSE (NO CHG), | e | 3:29 PM | with BMI of 70 and | procedure are in the | | POC | | PDT | over, adult ([facility]) | results section. | + +--------+ + + + | CAPILLARY BLOOD | Routin | 03/01/2018 | Morbid obesity | Results for this | | GLUCOSE (NO CHG), | e | 2:30 PM | with BMI of 70 and | procedure are in the | | POC | | PDT | over, adult ([facility]) | results section. | + +--------+ + + + | CAPILLARY BLOOD | Routin | 03/01/2018 | Morbid obesity | Results for this | | GLUCOSE (NO CHG), | e | 1:35 PM | with BMI of 70 and | procedure are in the | | POC | | PDT | over, adult ([facility]) | results section. | + +--------+ + + + | CAPILLARY BLOOD | Routin | 03/01/2018 | Morbid obesity | Results for this | | GLUCOSE (NO CHG), | e | 12:16 PM | with BMI of 70 and | procedure are in the | | POC | | PDT | over, adult ([facility] [...] POC | | PDT | over, adult ([facility]) | results section. | + +--------+ + + + | LAPAROSCOPIC | Electi | 03/01/2018 | Morbid obesity | | | NISH-EN-Y GASTRIC | ve | 8:31 AM | ([facility]) | | | BYPASS | [...] + + + | NKECHI AMES | [address] | [place], [place] | | | [facility] [facility] OF CARE | [address] | [address] | | | TESTS | | | [...] MARQUAM | [address] | [place], [place] | | | [facility] [facility] | [address] | [address] | | | TESTS | | | [...] - MARQUAM | [address] | [place], [place] | | | [facility] [facility] | [address] | [address] | | | TESTS | | | [...] AMES | [address] | [place], [place] | | | [facility] OF CARE | [address] | [address] | | | TESTS | | | [...] MARQUAM | [address] | [place], [place] | | | [place] [facility]ARE | [address] | [address] | | | TESTS | | | [...] YAKOVAM | [address] | [place], [place] | | | [facility] [facility]INT [facility] CARE | [address] | [address] | | | TESTS | | | [...] AMES | [address] | [place], [place] | | | JUST[facility] OF JAKY | [address] | [address] | | | TESTS | | | [...] MARQUAM | [address] | [place], [place] | | | [facility] [facility]ARE | [address] | [address] | | | TESTS | | | [...] MARPATAM | [address] | [place], [place] | | | [facility] [facility]ARE | [address] | [address] | | | TESTS | | | [...] AMES | [address] | [place], [place] | | | [facility] [place]AK[place] | [address] | [address] | | | TESTS | | | [...] MARQUAM | [address] | [place], [place] | | | [facility] [facility]ARE | [address] | [address] | | | TESTS | | | [...] KWAKU | [address] | [place], [place] | | | [facility] [facility]INT [facility] CARE | [address] | [address] | | | TESTS | | | [...] AMES | [address] | [place], [place] | | | [facility] [place] | [address] | [address] | | | TESTS | | | [...] MARQUAM | [address] | [place], [place] | | | [facility] OF CARE | [address] | [address] | | | TESTS | | | [...] MARPATAM | [address] | [place], [place] | | | [facility] OF CARE | [facility] | [address] | | | TESTS | | | [...] AMES | [address] | [place], [place] | | | [facility] OF CARE | [address] | [address] | | | TESTS | | | [...] YAKOVAM | [address] | [place] | | | [facility] [facility]INT OF CARE | [address] | [address] | | | TESTS | | | [...] MARQUAM | [address] | [place], [place] | | | [facility] JAK[place] | [address] | [address] | | | TESTS | | | [...] AMES | [address] | [place], [place] | | | [facility] CARE | [address] | [address] | | | TESTS | | | [...] YAKOVAM | [address] | [place] | | | [facility] CARE | [address] | [address] | | | TESTS | | | [...] KWAKU | [address] | [place], [place] | | | [facility] CARE | [address] | [address] | | | TESTS | | | [...] (H) | 70 - 99 mg/dL | [facility] - | | | GLUCOSE, | [...] AMES | [address] | [place], [place] | | | [facility] [place] | [address] | [address] | | | TESTS | | | [...] MARQUAM | [address] | [place], [place] | | | [facility] CARE | [address] | [address] | | | TESTS | | | [...] MARQUAM | [address] | [place], [place] | | | [facility] [place]AK[place] | [facility] | [address] | | | TESTS | | | [...] AMES | [address] | [place], [place] | | | [facility] [place] | [address] | [address] | | | TESTS | | | [...] MARQUAM | [address] | [place], [place] | | | [facility] [facility]INT OF CARE | [address] | [address] | | | TESTS | | | | + + + + + EGD (ESOPHAGOGASTRODUODENOSCOPY) (03/01/2018 11:21 AM PDT) + + + | Narrative | Performed At | + + + | Ion Castanon MD 03/01/2018 12:25 PM Date of Procedure: | | | 03/01/18 Primary Surgeon: Ion Castanon MD Co Surgeon or | | | assistant professor sculpture: Eldon Gonzalez MD, Chief Resident Alexx | [...] The jejunum was divided with 60 mm Mendenhall stapler with white | | | load [...] created in each limb and a 60mm Mendenhall stapler | | | with white load was fired to create a [id number] | | | jejunojejunostomy. The anastamosis was confirmed to be widely | | | patent and hemostatic. The common enterotomy was closed by placing | | | 2 stay sutures along the enterotomy for retraction and firing an | | | Mendenhall 60mm stapler with white load across the [...] | posterior to the nish limb. A Valopaa liver retractor was | | | placed [...] | | | was entered. The 60mm Mendenhall stapler with blue load was placed | [...] blue load of the 60mm stapler. The Mendenhall was then fired | | | longitudinally towards the angle of His to create the gastric pouch, | | | leaving the gastrotomy from foreign body removal, on the pouch. | | | Dissection was performed retrogastric to connect posterior and | | | anterior dissection planes and ensure adequate fundus exclusion. | | | Additional fires of the Mendenhall stapler were performed with blue | | [...] with | | | 5 mm clip cad designer drafter. A 25mm Orvil was passed transorally by [...] was closed with 60mm | | | Mendenhall stapler with a white load. Medially and [...] present | | | as my assistant professor sculpture for the entire procedure, given the technically | | | challenging nature of this procedure. She assisted in all critical | | | steps of the procedure. Dr. Gonzalez was present for endoscopy at the | | | end of the procedure. Ion Castanon MD, FACS, [facility] | | | Bariatric Surgery | [...] Surgeon or | | | assistant professor sculpture: Eldon Gonzalez MD, Chief Resident Alexx | [...] The jejunum was divided with 60 mm Mendenhall stapler with white | | | load [...] created in each limb and a 60mm Mendenhall stapler | | | with white load was fired to create a [id number]-[id number] | | | jejunojejunostomy. The anastamosis was confirmed to be widely | | | patent and hemostatic. The common enterotomy was closed by placing | | | 2 stay sutures along the enterotomy for retraction and firing an | | | Mendenhall 60mm stapler with white load across the [...] | | | was entered. The 60mm Mendenhall stapler with blue load was placed | [...] blue load of the 60mm stapler. The Mendenhall was then fired | | | longitudinally towards the angle of His to create the gastric pouch, | | | leaving the gastrotomy from foreign body removal, on the pouch. | | | Dissection was performed retrogastric to connect posterior and | | | anterior dissection planes and ensure adequate fundus exclusion. | | | Additional fires of the Mendenhall stapler were performed with blue | | [...] with | | | 5 mm clip cad designer drafter. A 25mm Orvil was passed transorally by [...] was closed with 60mm | | | Mendenhall stapler with a white load. Medially and [...] present | | | as my assistant professor sculpture for the entire procedure, given the technically | | | challenging nature of this procedure. She assisted in all critical | | | steps of the procedure. Dr. Gonzalez was present for endoscopy at the | | | end of the procedure. Ion Castanon MD, FACS, [facility] | | | Bariatric Surgery | [...] MARQU[place] | [address] | [place], [place] | | | [facility] POINT OF CARE | [address] | [address] | | | TESTS | | | [...]
--- OUTSIDE RECORDS SUMMARY | ~2019-06-01 | XMS | Encounter Summary ---
Demographics + + + | Address | [address] | | | [place] [address] | + + + | Home Phone [...] [place], [place] | | | | | [address] | | + + + + + | Ellie Vang | ECON | Unknown | | + + + + + Care Team Providers + +------+ + | Care Videotape Sales Representative Name | Role | Phone [...] | | | [address] | [place], [place] | | | | | Mailcode: [place] | [address] | | | | | [facility] Health and | | | | | | [facility] [address] | | | | | | [place], [place] | | | | | | [address] | | | | | | | [...] [address] | | | | | | [place], [place] | | | | | | [address] | | | | | | [phone] | | | | | | | | +--------+ + + + + | 06/24/ | Surgery | Surgery | Chilo | OPEN VENTRAL HERNIA | | 2018 | | | MD [address] | REPAIR WITH | | | | | [address] | BIOLOGICAL MESH | | | | | [place], [place] | | | | | | [address] | | | | | | [phone] | | | | | | | | +--------+ + + + + | 06/30/ | Office | Cardiology | Randell Franks, | | | 2019 | Visit | | [address] | | | | | | [address] [place], [place] | | | | | | [address] | | | | | | [phone] | | | | | | | | +--------+ + + + + documented as of this encounter Visit Diagnoses Not on filedocumented in this encounter"
--- OUTSIDE RECORDS SUMMARY | ~2019-06-01 | XMS | Encounter Summary ---
Demographics + + + | Address | [address] | | | [place] [address] | + + + | Home Phone [...] + | Katalina Padilla | ECON | [address] | | | | | [place], [place] | | | | | [address] | | + + + + + | Ellie Vang | ECON | Unknown | | + + + + + Care Team Providers + +------+ + | Care Lens Mold Setter Name | Role | Phone | + +------+ + | Fadi Goodrich DO | PCP | | + +------+ + Reason for Visit + + + | Reason | Comments | + + + | Medical Records | Letter from pillowcase cleaner. | | Review | | + + + Encounter Details +--------+ + + + + | Date | Type | Department | Care Team | Description | +--------+ + + + + | 11/08/ | Abstract | Digestive Health | Shereen Georges, | Medical Records | | 2015 | | Center at [facility] [address] | [facility] [address] | Review (Letter from | | | | [address] | [place], [place] | pillowcase cleaner. ) | | | | Mailcode: [place] | [address] | | | | | [facility] and | [phone] | | | | | [place] [address] | | | | | | [place], [place] | | | | | | [address] | | | | | | [phone] | | | +--------+ + + + [...] Rd | | | | | | [place] | | | | | | [address] | | | | | | [phone] | | | | | | | | +--------+ + + + + | 06/24/ | Surgery | Surgery | Chilo | OPEN VENTRAL HERNIA | | 2019 | | | MD [address] | REPAIR WITH | | | | | [address] | BIOLOGICAL MESH | | | | | [place] | | | | | | [address] | | | | | | [phone] | | | | | | | | +--------+ + + + + | 06/30/ | Office | Cardiology | Randell Franks, | | | 2019 | Visit | | [address] | | | | | | [place], [place] | | | | | | [address] | | | | | | [phone] | | | | | | | | +--------+ + + + + documented as of this encounter Visit Diagnoses Not on filedocumented in this encounter"
--- OUTSIDE RECORDS SUMMARY | ~2019-06-01 | XMS | Encounter Summary ---
Demographics + + + | Address | [address] | | | [place] [address] | + + + | Home Phone [...] [place], [place] | | | | | [address] | | + + + + + | Ellie Vang | ECON | Unknown | | + + + + + Care Team Providers + +------+ + | Care Forest Ranger Name | Role | Phone | + [...] | | | | | Procedures | [place], [place] | [place], [place] | | | | | CONSULT TO | [address] | [address] | | | | | CAR | Phone: | Phone: | | | | | PREVENTATIVE | [phone] | [phone] | | | | | [facility] - | Fax: | Fax: | | | | | LIPIDS | [phone] | [phone] | +--------+--------+ + + + + Encounter Details +--------+---------+ + + + | Date | Type | Department | Care Team | Description | +--------+---------+ + + + | 09/11/ | Office | Cardiology | Olga Lidia Montanez, | 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 | Visit | Preventive at [facility] | [address] | BMI of 70 and over, | | | | [address] | [address] | adult (HCC) (Primary | | | | Mailcode: CH9A | [place], [place] | Dx) | | | | [facility] | [address] | | | | | and Healing, | | | | | | Building [address] | | | | | | [place], [place] | | | | | | [address] | | | | | | [phone] | | | +--------+---------+ + + + [...] Dietitian: Olga Lidia Montanez RD, LD [facility] Bariatric department (to reschedule classes): [phone] Goals: 1. Try to stop buying Pop-Tarts 2. Replace afternoon snack (think of this as lunch) with vegetables or fruit -cucumbers, carrots, broccoli, cauliflower, etc. -try making ranch dip w/ nonfat plain yogurt (regular or Albanian) (or mix yogurt w/ salsa; o r chipotle hot sauce & [place] juice) 3. Snack ideas: -fruit -vegetables (with hummus or yogurt dip) -Albanian yogurt - light (have w/ fruit if you're still hungry) -applesauce - unsweetened, w/ lowfat string cheese -1/4 cup nuts -lowfat string cheese -low-fat or non-fat cottage cheese w/ tomatoes 4. Aim for 60-80 grams of protein a day (see list) 5. Add Albanian yogurt to breakfast Heart Protection Kitchen from [facility] Healthy eating made simple. What: FREE heart-healthy cooking demonstrations led by guest pattern designer and nutrition experts. Samples are provided! Where: [facility] ([facility]), September, 2nd floor teaching kitchen When: All classes from 11:00am-12:00pm ? October 12 (led by Dr. Paulino Carreno MD) Please contact Keerthi Boyer at [phone] or email at [email or web address] for information on upcoming classes and to register. Space is limited - reserve your seat today! Want more info on what to eat? Watch the [employer] video, "Healthy Eating 101," at [email or web address] documented in this encounter Progress Notes Olga Lidia Montanez RD - 09/11/2017 2:30 PM PSTFormatting of this note might be different fro m the original. [facility] Preventive Cardiology, Nutrition Consultation Referring provider: Dr. Randell Franks MD Referring diagnosis: obesity, HF, DM2 Visit type: Initial; omdu-da-aytb visit with patient Questions/Information desired today: Hoping [...] Still has bariatric notebooks at home. Per [employer] message from Dr. Pandey 09/10/17: "Just tell [...] & 1% milk; occ w/ applesauce or Albanian yogurt No L S (3pm): pop-tart or [...] it's too expensive. Occ fruit bowls from . Vegetables: every day w/ dinner - usually [...] in PT 2x/week for bariatric program (in [place]) UBW: 385-391 lbs Max weight: 529 lbs Weight history: lost from 495 lbs to 383 lbs in 4710-4579 on Atkins diet ANTHROPOMETRICS: Height: Ht Readings from Last 1 Encounters: 09/11/17 1.549 m (5' 1") Weight: Wt Readings from Last 1 Encounters: 09/11/17 176.5 kg (389 lb 3.2 oz) 11/28/16 179.443 kg (395 lb 10 oz) Body mass index is 73.54 kg/m. Weight belt changer the past year: 6 lb wt [...] weight loss; anticipate excellent compliance in the [facility] surgery program. Currently eating energy-dense/nurient-poor [...] of protein a day - add light Albanian yogurt to breakfast; include lean protein with PM snack/lunch 3. D/c carbonated beverages (e.g., diet soda); replace with water, Crystal Light, diet deca f tea, or other calorie-free still beverage Contact information was provided; call or send [employer] message to dietitian with any questi ons. [...] [address] | | | | | | [place], [place] | | | | | | [address] | | | | | | [phone] | | | | | | | | +--------+ + + + + | 06/24/ | Surgery | Surgery | Chilo, | OPEN VENTRAL HERNIA | | 2019 | | | MD [address] | REPAIR WITH | | | | | [address] | BIOLOGICAL MESH | | | | | [facility] [place] | | | | | | [address] | | | | | | [phone] | | | | | | | | +--------+ + + + + | 06/30/ | Office | Cardiology | Randell Franks, | | | 2019 | Visit | | [address] | | | | | | [place], [place] | | | | | | [address] | | | | | | [phone] | | | | | | | | +--------+ + + + + documented as of this encounter Visit Diagnoses + + | Diagnosis | + + | Morbid obesity with BMI of 70 and over, adult (HCC) - Primary | + + documented in this encounter
--- OUTSIDE RECORDS SUMMARY | ~2019-06-01 | XMS | Encounter Summary ---
Demographics + + + | Address | [address] | | | [place] [address] | + + + | Home Phone [...] [place], [place] | | | | | [address] | | + + + + + | Ellie Vang | ECON | Unknown | | + + + + + Care Team Providers + +------+ + | Care Tire Maker Name | Role | Phone | [...] | | 2015 | | Center at [facility] [address] | [address] | | | | | [place] [address] | Lesly Gutiérrez [place], | | | | | Mailcode: [place] | [place] [address] | | | | | for Health and | | | | | | [facility] [place] [address] | | | | | | [place], [place] | | | | | | [address] | | | | | | [phone] | | | +--------+ + + + [...] [place] | | | | | | [address] | | | | | | [phone] | | | | | | | | +--------+ + + + + | 06/24/ | Surgery | Surgery | Chilo | OPEN VENTRAL HERNIA | | 2018 | | | MD [address] | REPAIR WITH | | | | | [address] | BIOLOGICAL MESH | | | | | [place], [place] | | | | | | [address] | | | | | | [phone] | | | | | | | | +--------+ + + + + | 06/30/ | Office | Cardiology | Randell Franks, | | | 2019 | Visit | | MD [address] | | | | | | [place], [place] | | | | | | [address] | | | | | | [phone] | | | | | | | | +--------+ + + + + documented as of this encounter Visit Diagnoses Not on filedocumented in this encounter"
--- OUTSIDE RECORDS SUMMARY | ~2019-06-01 | XMS | Encounter Summary ---
Demographics + + + | Address | [address] | | | [place] [address] | + + + | Home Phone [...] [place], [place] | | | | | [address] | | + + + + + | Ellie Vang | ECON | Unknown | | + + + + + Care Team Providers + +------+ + | Care Milking Worker Name | Role | Phone | [...] the | | | | | | [facility] [address] [facility] | | | | | | [facility] | | | | | | [place], [place] | | | | | | [address] | | | +--------+ + + + [...] Rd | | | | | | [place], [place] | | | | | | [address] | | | | | | [phone] | | | | | | | | +--------+ + + + + | 06/24/ | Surgery | Surgery | Chilo | OPEN VENTRAL HERNIA | | 2018 | | | MD [address] Recinos | REPAIR WITH | | | | | [address] | BIOLOGICAL MESH | | | | | [place], [place] | | | | | | [address] | | | | | | [phone] | | | | | | | | +--------+ + + + + | 06/30/ | Office | Cardiology | Randell Franks, | | | 2019 | Visit | | MD [address] | | | | | | [place] | | | | | | [address] | | | | | | [phone] | | | | | | | | +--------+ + + + + documented as of this encounter Visit Diagnoses Not on filedocumented in this encounter"
--- OUTSIDE RECORDS SUMMARY | ~2019-06-01 | XMS | Encounter Summary ---
Demographics + + + | Address | [address] | | | [place] [address] | + + + | Home Phone [...] [place], [place] | | | | | [address] | | + + + + + | Ellie Vang | ECON | Unknown | | + + + + + Care Team Providers + +------+ + | Care Spikemaking Supervisor Name | Role | Phone | [...] + + | 03/01/ | Hospital | [facility] [address] | Ion Castanon, | | | 2018 - | Encounter | [address] | [address] | | | | | [place], [place] | [place], [place] | | | 03/03/ | | [address] | [address] | | | 2017 | | [phone] | [phone] | | | | | | | [...] ACNP - 03/03/2018 9:49 AM PDT [facility] RED SURGERY INPATIENT DISCHARGE SUMMARY Author: KAIN [...] to a bariatric full liquid diets. Our [facility] dietitian was consulted and they discussed [...] at minimum. 5. Follow with PCP for Firing Pin Gauger within 1 - 2 weeks of discharge [...] mg by mouth two times daily. CALCIUM [id number]-GENIS ORAL Take 2 tablets by mouth two [...] or Kefir, [place] Yogurt, and Chioban i Indian Yogurt are common brands with beneficial probiotics. [...] over the counter at most [facility] [employer] stores. Nausea/Vomiting/Difficulty Swallowing Nausea/Vomiting/Difficulty swallowing: Could be [...] hours per your instructions. Some medications, like [place], have Tylenol in it. Make sure you [...] hours by calling the surgery office at [phone]. - After hours, weekends and holidays, you may call the hospital lock operator at [phone] an d have the fiction and nonfiction prose writer Red Surgery Team paged. OTHER DISCHARGE ORDERS [...] at minimum. 5. Follow with PCP for Firing Pin Gauger within 1 - 2 weeks of discharge [...] Department Dept Phone Center 03/10/2018 1:30 PM [facility] at [facility] 6th Floor [phone] FO OD AND NUT 03/10/2018 3:05 PM [facility] at [facility] 6th Floor [phone] [facility] 04/01/2018 10:30 AM [facility] at [facility] 6th Floor [phone] FO OD AND NUT 04/01/2018 11:00 AM Ion [facility] 6th Floor [phone] [facility] 05/27/2018 2:30 PM [facility] at [facility] 6th Floor [phone] FO OD AND NUT 05/27/2018 3:05 PM [facility] at [facility] 6th Floor [phone] [facility] 05/27/2018 4:30 PM [facility] 15th Floor [phone] Comprehensiv 06/04/2018 10:35 AM Randell Franks Cardiology Preventive at [facility] [phone] Cardiology Discharging Physician: KAIN Agee Attending Physician: Ion Castanon MD [facility] Surgery Pager# [phone] 9:50 AM 03/03/2018 documented in this enco [...] | | 0 | | | | [id number]-[id number]-GEN | mouth two times | | | [...] date of discharge 03/03/18 PARTHA Calixto MS3 [employer] Demarcus Menon MD - 03/02 [...] for care ride home (pt lives in [place]) Demarcus Alas M.D. General Surgery Resident PGY-1 Pager: [phone] Ion Ferrari MD - 10:00 AM PDTI [...] [place] | | | | | | [address] | | | | | | [phone] | | | | | | | | +--------+ + + + + | 06/24/ | Surgery | Surgery | Chilo, | OPEN VENTRAL HERNIA | | 2018 | | | MD Jorje [address] | REPAIR WITH | | | | | [address] | BIOLOGICAL MESH | | | | | [facility] [place] | | | | | | [address] | | | | | | [phone] | | | | | | | | +--------+ + + + + | 06/30/ | Office | Cardiology | Randell Franks, | | | 2018 | Visit | | [address] | | | | | | [place], [place] | | | | | | [address] | | | | | | [phone] | | | | | | | [...] | PDT | over, adult ([facility]) | results section. | + +--------+ + + + | CAPILLARY BLOOD | Routin | 03/03/2018 | Morbid obesity | Results for this | | GLUCOSE (NO CHG), | e | 7:54 AM | with BMI of 70 and | procedure are in the | | POC | | PDT | over, adult ([facility]) | results section. | + +--------+ + + + | CAPILLARY BLOOD | Routin | 03/03/2018 | Morbid obesity | Results for this | | GLUCOSE (NO CHG), | e | 6:28 AM | with BMI of 70 and | procedure are in the | | POC | | PDT | over, adult ([facility]) | results section. | + +--------+ + + + | CAPILLARY BLOOD | Routin | 03/02/2018 | Morbid obesity | Results for this | | GLUCOSE (NO CHG), | e | 9:17 PM | with BMI of 70 and | procedure are in the | | POC | | PDT | over, adult ([facility]) | results section. | + +--------+ + + + | CAPILLARY BLOOD | Routin | 03/02/2018 | Morbid obesity | Results for this | | GLUCOSE (NO CHG), | e | 6:50 PM | with BMI of 70 and | procedure are in the | | POC | | PDT | over, adult ([facility]) | results section. | + +--------+ + + + | CAPILLARY BLOOD | Routin | 03/02/2018 | Morbid obesity | Results for this | | GLUCOSE (NO CHG), | e | 3:46 PM | with BMI of 70 and | procedure are in the | | POC | | PDT | over, adult ([facility]) | results section. | + +--------+ + + + | CAPILLARY BLOOD | Routin | 03/02/2018 | Morbid obesity | Results for this | | GLUCOSE (NO CHG), | e | 2:36 PM | with BMI of 70 and | procedure are in the | | POC | | PDT | over, adult ([facility]) | results section. | + +--------+ + + + | CAPILLARY BLOOD | Routin | 03/02/2018 | Morbid obesity | Results for this | | GLUCOSE (NO CHG), | e | 1:33 PM | with BMI of 70 and | procedure are in the | | POC | | PDT | over, adult ([facility]) | results section. | + +--------+ + + + | CAPILLARY BLOOD | Routin | 03/02/2018 | Morbid obesity | Results for this | | GLUCOSE (NO CHG), | e | 11:36 AM | with BMI of 70 and | procedure are in the | | POC | | PDT | over, adult ([facility]) | results section. | + +--------+ + + + | CAPILLARY BLOOD | Routin | 03/02/2018 | Morbid obesity | Results for this | | GLUCOSE (NO CHG), | e | 10:32 AM | with BMI of 70 and | procedure are in the | | POC | | PDT | over, adult ([facility]) | results section. | + +--------+ + + + | CAPILLARY BLOOD | Routin | 03/02/2018 | Morbid obesity | Results for this | | GLUCOSE (NO CHG), | e | 9:23 AM | with BMI of 70 and | procedure are in the | | POC | | PDT | over, adult ([facility]) | results section. | + +--------+ + + + | CAPILLARY BLOOD | Routin | 03/02/2018 | Morbid obesity | Results for this | | GLUCOSE (NO CHG), | e | 8:36 AM | with BMI of 70 and | procedure are in the | | POC | | PDT | over, adult ([facility]) | results section. | + +--------+ + + + | CAPILLARY BLOOD | Routin | 03/02/2018 | Morbid obesity | Results for this | | GLUCOSE (NO CHG), | e | 7:35 AM | with BMI of 70 and | procedure are in the | | POC | | PDT | over, adult ([facility]) | results section. | + +--------+ + + + | CAPILLARY BLOOD | Routin | 03/02/2018 | Morbid obesity | Results for this | | GLUCOSE (NO CHG), | e | 6:33 AM | with BMI of 70 and | procedure are in the | | POC | | PDT | over, adult ([facility]) | results section. | + +--------+ + + + | CAPILLARY BLOOD | Routin | 03/02/2018 | Morbid obesity | Results for this | | GLUCOSE (NO CHG), | e | 5:28 AM | with BMI of 70 and | procedure are in the | | POC | | PDT | over, adult ([facility]) | results section. | + +--------+ + + + | CAPILLARY BLOOD | Routin | 03/02/2018 | Morbid obesity | Results for this | | GLUCOSE (NO CHG), | e | 4:36 AM | with BMI of 70 and | procedure are in the | | POC | | PDT | over, adult ([facility]) | results section. | + +--------+ + + + | CAPILLARY BLOOD | Routin | 03/02/2018 | Morbid obesity | Results for this | | GLUCOSE (NO CHG), | e | 2:46 AM | with BMI of 70 and | procedure are in the | | POC | | PDT | over, adult ([facility]) | results section. | + +--------+ + + + | CAPILLARY BLOOD | Routin | 03/02/2018 | Morbid obesity | Results for this | | GLUCOSE (NO CHG), | e | 12:32 AM | with BMI of 70 and | procedure are in the | | POC | | PDT | over, adult ([facility]) | results section. | + +--------+ + + + | CAPILLARY BLOOD | Routin | 03/01/2018 | Morbid obesity | Results for this | | GLUCOSE (NO CHG), | e | 10:31 PM | with BMI of 70 and | procedure are in the | | POC | | PDT | over, adult ([facility]) | results section. | + +--------+ + + + | CAPILLARY BLOOD | Routin | 03/01/2018 | Morbid obesity | Results for this | | GLUCOSE (NO CHG), | e | 8:21 PM | with BMI of 70 and | procedure are in the | | POC | | PDT | over, adult ([facility]) | results section. | + +--------+ + [...] | PDT | over, adult ([facility]) | results section. | + +--------+ + + + | CAPILLARY BLOOD | Routin | 03/01/2018 | Morbid obesity | Results for this | | GLUCOSE (NO CHG), | e | 3:31 PM | with BMI of 70 and | procedure are in the | | POC | | PDT | over, adult ([facility]) | results section. | + +--------+ + + + | CAPILLARY BLOOD | Routin | 03/01/2018 | Morbid obesity | Results for this | | GLUCOSE (NO CHG), | e | 3:29 PM | with BMI of 70 and | procedure are in the | | POC | | PDT | over, adult ([facility]) | results section. | + +--------+ + + + | CAPILLARY BLOOD | Routin | 03/01/2018 | Morbid obesity | Results for this | | GLUCOSE (NO CHG), | e | 2:30 PM | with BMI of 70 and | procedure are in the | | POC | | PDT | over, adult ([facility]) | results section. | + +--------+ + + + | CAPILLARY BLOOD | Routin | 03/01/2018 | Morbid obesity | Results for this | | GLUCOSE (NO CHG), | e | 1:35 PM | with BMI of 70 and | procedure are in the | | POC | | PDT | over, adult ([facility]) | results section. | + +--------+ + + + | CAPILLARY BLOOD | Routin | 03/01/2018 | Morbid obesity | Results for this | | GLUCOSE (NO CHG), | e | 12:16 PM | with BMI of 70 and | procedure are in the | | POC | | PDT | over, adult ([facility]) | results section. | + +--------+ + [...] | PDT | over, adult ([facility]) | results section. | + +--------+ + + + | LAPAROSCOPIC | Electi | 03/01/2018 | Morbid obesity | | | NISH-EN-Y GASTRIC | ve | 8:31 AM | ([facility]) | | | BYPASS | Surgic | [...] + + + | NKECHI AMES | [address] | [place], [place] | | | [facility] | [address] | [address] | | | TESTS | | | [...] MARQUAM | [address] | [place], [place] | | | [facility] | [address] | [phone] | | | TESTS | | | [...] - MARQUAM | [address] | [place], [place] | | | [facility] | [address] | [address] | | | TESTS | | | [...] AMES | [address] | [place], [place] | | | [facility] | [address] | [address] | | | TESTS | | | [...] MARQUAM | [address] | [place], [place] | | | [facility] | [address] | [address] | | | TESTS | | | [...] YAKOVAM | [address] | [place], [place] | | | [facility] | [address] | [address] | | | TESTS | | | [...] AMES | [address] | [place], [place] | | | [facility] | [address] | [address] | | | TESTS | | | [...] MARQUAM | [address] | [place], [place] | | | [facility] | [address] | [address] | | | TESTS | | | [...] MARPATAM | [address] | [place], [place] | | | [facility] | [address] | [address] | | | TESTS | | | [...] AMES | [address] | [place], [place] | | | [facility] | [address] | [address] | | | TESTS | | | [...] MARQUAM | [address] | [place], [place] | | | [facility] | [address] | [address] | | | TESTS | | | [...] KWAKU | [address] | [place], [place] | | | [facility] | [address] | [address] | | | TESTS | | | [...] AMES | [address] | [place], [place] | | | [facility] | [address] | [address] | | | TESTS | | | [...] MARQUAM | [address] | [place], [place] | | | [facility] | [address] | [address] | | | TESTS | | | [...] MARPATAM | [address] | [place], [place] | | | [facility] | [facility] | [address] | | | TESTS | | | [...] AMES | [address] | [place], [place] | | | [facility] | [address] | [address] | | | TESTS | | | [...] YAKOVAM | [address] | [place] | | | [facility] | [address] | [address] | | | TESTS | | | [...] MARQUAM | [address] | [place], [place] | | | [facility] | [address] | [address] | | | TESTS | | | [...] AMES | [address] | [place], [place] | | | [facility] | [address] | [address] | | | TESTS | | | [...] YAKOVAM | [address] | [place] | | | [facility] | [address] | [address] | | | TESTS | | | [...] KWAKU | [address] | [place], [place] | | | [facility] | [address] | [address] | | | TESTS | | | [...] (H) | 70 - 99 mg/dL | [facility] - [...] AMES | [address] | [place], [place] | | | [facility] | [address] | [address] | | | TESTS | | | [...] MARQUAM | [address] | [place] | | | [facility] | [address] | [address] | | | TESTS | | | [...] MARQUAM | [address] | [place], [place] | | | [facility] | [facility] | [address] | | | TESTS | | | [...] AMES | [address] | [place], [place] | | | [facility] | [address] | [address] | | | TESTS | | | [...] MARQUAM | [address] | [place], [place] | | | [facility] | [address] | [address] | | | TESTS | | | | + + + + + EGD (ESOPHAGOGASTRODUODENOSCOPY) (03/01/2018 11:21 AM PDT) + + + | Narrative | Performed At | + + + | Ion Castanon MD 03/01/2018 12:25 PM Date of Procedure: | | | 03/01/18 Primary Surgeon: Ion Castanon MD Co Surgeon or | | | virtual assistant: Eldno Gonzalez MD, Chief Resident Alexx | | [...] The jejunum was divided with 60 mm Trezevant stapler with white | | | load [...] created in each limb and a 60mm Trezevant stapler | | | with white load was fired to create a [id number] | | | jejunojejunostomy. The anastamosis was confirmed to be widely | | | patent and hemostatic. The common enterotomy was closed by placing | | | 2 stay sutures along the enterotomy for retraction and firing an | | | Trezevant 60mm stapler with white load across the [...] | posterior to the nish limb. A [employer] liver retractor was | | | placed [...] | | | was entered. The 60mm Trezevant stapler with blue load was placed | [...] blue load of the 60mm stapler. The Trezevant was then fired | | | longitudinally towards the angle of His to create the gastric pouch, | | | leaving the gastrotomy from foreign body removal, on the pouch. | | | Dissection was performed retrogastric to connect posterior and | | | anterior dissection planes and ensure adequate fundus exclusion. | | | Additional fires of the Trezevant stapler were performed with blue | | [...] with | | | 5 mm clip assistant professor of economics. A 25mm Orvil was passed transorally by [...] was closed with 60mm | | | Trezevant stapler with a white load. Medially and [...] was present | | | as my virtual assistant for the entire procedure, given the technically | | | challenging nature of this procedure. She assisted in all critical | | | steps of the procedure. Dr. Gonzalez was present for endoscopy at the | | | end of the procedure. Ion Castanon MD, FACS, [facility] | | | Bariatric Surgery | [...] MD Co Surgeon or | | | virtual assistant: Eldon Gonzalez MD, Chief Resident Alexx [...] The jejunum was divided with 60 mm Trezevant stapler with white | | | load [...] created in each limb and a 60mm Trezevant stapler | | | with white load was fired to create a [id number] | | | jejunojejunostomy. The anastamosis was confirmed to be widely | | | patent and hemostatic. The common enterotomy was closed by placing | | | 2 stay sutures along the enterotomy for retraction and firing an | | | Trezevant 60mm stapler with white load across the [...] | | | was entered. The 60mm Trezevant stapler with blue load was placed | [...] blue load of the 60mm stapler. The Trezevant was then fired | | | longitudinally towards the angle of His to create the gastric pouch, | | | leaving the gastrotomy from foreign body removal, on the pouch. | | | Dissection was performed retrogastric to connect posterior and | | | anterior dissection planes and ensure adequate fundus exclusion. | | | Additional fires of the Trezevant stapler were performed with blue | | [...] with | | | 5 mm clip assistant professor of economics. A 25mm Orvil was passed transorally by [...] was closed with 60mm | | | Trezevant stapler with a white load. Medially and [...] was present | | | as my virtual assistant for the entire procedure, given the technically | | | challenging nature of this procedure. She assisted in all critical | | | steps of the procedure. Dr. Gonzalez was present for endoscopy at the | | | end of the procedure. Ion Castanon MD, FACS, [facility] | | | Bariatric Surgery | [...] MARQUAM | [address] | [place], [place] | | | [facility] | [address] | [address] | | | TESTS | | | [...]
--- OUTSIDE RECORDS SUMMARY | ~2019-06-01 | XMS | Encounter Summary ---
Demographics + + + | Address | [address] | | | [place] [address] | + + + | Home Phone [...] Author | [facility] | | | and Jeffana | + + + | Organization | [facility] | | | and Jeffana [...] Providers + +------+ + | Care Bulb Inspector Name | Role | Phone | [...] | Services | Disease | Chronic | [facility] | | | Required | | diastolic | RUBBER COMPOUNDER SUPERVISOR [address] | SLEEP | | | | | heart | GOADALIDS | DISORDERS LAB | | | | | failure | DMITRI F | [address] | | | | | (HCC) | GEOFF GUTIERREZ | [address] | | | | | History of | [address] | [place], [place] | | | | | sinus | Phone: | [address] | | | | | tachycardia | [phone] | Phone: | | | | | History of | Fax: | [phone] | | | | | bariatric | [phone] | Fax: | | | | | surgery | | [phone] | | | | | Sleep apnea [...] + + | 04/28/ | Office | [facility] | Sulema Altamirano | Chronic diastolic | | 2019 | Visit | CARDIOLOGY [place] | [address] | heart failure (HCC) | | | | [address] | PAYAL RICHEY | (Primary Dx); | | | | [address] | [place] [address] | History of sinus | | | | [place] | [phone] | tachycardia; History | | | | [address] | | of stroke; HTN, | | | | [phone] | | goal below 130/80; | | [...] | Blood Pressure | 130/76 | 04/28/2019 1256 PDT | + + + + | [...] Body Mass Index | 56.81 | 04/28/2019 1256 PDT | + + + + documented in this encounter Patient Instructions Patient Instructions Sulema Altamirano FNP - 04/28/2019 13:00 PDTI have referred you to Dr. Rascon at [facility] sleep [facility] , call [phone] for an appointment next week I made no changes to medications See me back in 6 months but sooner if needed documented in this encounter Progress Notes Sulema Altamirano FNP - 04/28/2019 1300 PDTFormatting of this note might be different f rom the original. 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 Fu, and SELINA Escobar. Her current [...] and will be seeing a surgeon seven [place] on May 05. In the meantime she [...] surgery, and weight down 123 pounds since [facility] 2017 when weighed 394 lbs. She [...] hypothyroidism,followed by Dr. Franks, endocrin ologist at [facility]) . Denies excessive thirst or [...] knee pain and hernia pain Lives in [facility] her mother who smokes. . Sister is health care specialist. Grandchildren ages 4 and 7 live with he r daughter and son-in-law. Disabled , on disability .01/24/2019: working with [employer] to get her own place. Outpatient Medications [...] film Suboxone 2 mg-0.5 mg sublingual film Mngchec-Xqdbwrfgd-Adigvlb D (CITRACAL CALCIUM+D PO) Take 2 tablets [...] Pen Needle (NOVOFINE) 32G X 6 MM [facility] Novofine 32 32 gauge x 1/4" needle [...] monohydrate/macrocrystals 100 m g capsule nystatin (NYSTATIN) 814121 UNIT/GM powder Nyamyc 100,000 unit/gram topical powder [...] Take 30 mg by mouth Daily. thyroid (ICE CREAM SCOOPER THYROID) 30 mg tablet ICE CREAM SCOOPER Thyroid 30 mg tablet TAKE ONE TABLET [...] , and aortic arch normal Echo: 01/02/2016 ([facility]): TDS, cardiac chamber dimensions grossly NML, LVEF >70%, rodriguez tolic function normal for patient. Unable to assess segmental wall motion. RV grossly norm al. Aortic valve sclerotic, no As/AI. Mitral and tricuspid valves grossly normal. Trace T R. No pericardial effusion VASCULAR TESTING AND PROCEDURES Left lower extremity DVT, presumed PE: 10/2015 [facility]. treated with heparin drip and Coumadin 10 in hospital, with Coumadin 6 months as outpatient, ASA 81 mg continued Venous US: right leg, 04/28/2016: No evidence of DVT. EKG EKG 10/27: ([facility]) Normal sinus rhythm. Normal EKG. Rate 93 bpm, MD 172 ms, QRS 90 ms, QTC 465 ms personally reviewed by me in the office today) EK02/05: Sinus tachycardia, otherwise normal. Rate 160 bpm, MD 174 ms, QRS 74 ms, QTC 451 ms (personally reviewed by me in the office today and no significant change seen fro m EKG done in October 2016 except for faster heart rate) EK04/26/2018: Normal sinus rhythm, rate 74 bpm, MD 182 ms, QRS 96 ms, QTC 472 ms, alexandru genao personally reviewed by me, and compared to previous EKG, heart rate is now better controll ed, otherwise similar morphology EK04/28/2019: Normal sinus rhythm, right axis. Rate 74 bpm, MD 170 ms, QRS 88 ms, QTC 45 [...] providers at the [place] [facility] in [place], so I have referred her again to Dr. Rascon at the [place] sleep disorders clinic, and she ne eds [...] Placed This Encounter Procedures Ambulatory Referral to [facility] Pulmonology- Sleep study as well ECG [...] past surgical history. Problem list. Maryse MARKS [facility] Cardiology 04/28/2019 documente d in this encounter Plan of Treatment + +--------+ + + | Name | Priori | Associated Diagnoses | Order Schedule | | | ty | | | + +--------+ + + | Ambulatory Referral to [facility] | Routin | Chronic diastolic | Ordered: 04/28/2019 | | Pulmonology- Sleep study as well | e | heart failure (HCC) | | | | | History of sinus | | | | | tachycardia History | | | | | of bariatric | | | | | surgery Sleep apnea | | | | | with use of | | | | | continuous positive | | | | | airway pressure | | | | | (CPAP) Morbid | | | | | obesity with | | | | | alveolar | | | | | hypoventilation | | | | | (HCC) Type 2 | | | |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 | | | | | without | | | | | complication, with | | | | | long-term current | | | | | use of insulin (HCC) | | + +--------+ + + documented [...] hypoventilation | | | | | | ([facility]) Type 2 | | | | |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 | | | | | | without | | | | | | complication, with | | | | | | long-term current | | | | | | use of insulin ([facility]) | | | | | | Mixed [...] this encounter Results ECG 12 lead (04/28/2019 13:27 PDT) [...] | | | | | by [employer] [place] Read Only, | | | | | | [employer] Payal ([id number]), | | | | | | make up editor Glen Alberto | | | | | | ([id number]) on 04/28/2019 | | | | | [...]
--- OUTSIDE RECORDS SUMMARY | ~2019-06-01 | XMS | Encounter Summary ---
Demographics + + + | Address | [address] | | | [place] [address] | + + + | Home Phone [...] [place], [place] | | | | | [address] | | + + + + + | Ellie Vang | ECON | Unknown | | + + + + + Care Team Providers + +------+ + | Care Coach Tour Driver Name | Role | Phone | [...] | | | [address] | [place], [place] | Dx); History of | | | | Mailcode: Center | [address] | Frandy-en-Y gastric | | | | for Health and | | bypass | | | | [facility] 2 | | | | | | [place], [place] | | | | | | [address] | | | | | | [phone] | | | +--------+---------+ + + + [...] to the healing stomach. There are also assisted complications of poor wound healing and gastric u lcers. These ulcers are started by smoking or using other nicotine products (vapor cigarett es etc). Gastric bypass patients should also avoid NSAIDS(ibuprofen, advil, motrin, naprosyn/naproxe n/aleve) to prevent gastric/marginal ulcers. Please visit with our Microarray Operations Vice President (RD) for instructions about your Bariatric diet, assistance with calorie counts, tips and tricks for working with your diet restrictions, an d recipes after bariatric surgery. Daily yogurt; even just 1 tablespoon twice a day will provide enough probiotics to optimize digestion. Try to use a high-quality, probiotic-dense yogurt (eg Zaria's, Stoneyfield, Lif eway Kefir, Claims Processor Duke's Bulgarian Yogurt). Remember to chew your food well, [...] protein daily, and 64 oz water daily. Equipment Maint Tech just changed diet to he lp her [...] by communicating with her mother - Follow Equipment Maint Tech recommendations to help with nausea (decrease volume, [...] Anisa Dillon MD PGY-1, Red Surgery Pager: [phone] documented in this encounter Plan of Treatment [...] Rd | | | | | | [place], [place] | | | | | | [address] | | | | | | [phone] | | | | | | | | +--------+ + + + + | 06/24/ | Surgery | Surgery | Chilo, | OPEN VENTRAL HERNIA | | 2018 | | | MD Jorje [address] | REPAIR WITH | | | | | [address] | BIOLOGICAL MESH | | | | | [place], [place] | | | | | | [address] | | | | | | [phone] | | | | | | | | +--------+ + + + + | 06/30/ | Office | Cardiology | Randell Franks, | | | 2018 | Visit | | MD [address]ion [address] | | | | | | Ave [place], [place] | | | | | | [address] | | | | | | [phone] | | | | | | | [...]
--- OUTSIDE RECORDS SUMMARY | ~2019-06-01 | XMS | Encounter Summary ---
Demographics + + + | Address | [address] | | | [place] [address] | + + + | Home Phone [...] [place], [place] | | | | | [address] | | + + + + + | Ellie Vang | ECON | Unknown | | + + + + + Care Team Providers + +------+ + | Care Cto Name | Role | Phone | + [...] | | | | | | [place] [address] | | | +--------+ + + + [...] Rd | | | | | | [place], [place] | | | | | | [address] | | | | | | [phone] | | | | | | | | +--------+ + + + + | 06/24/ | Surgery | Surgery | Chilo, | OPEN VENTRAL HERNIA | | 2018 | | | MD Jorje [address] | REPAIR WITH | | | | | [address] | BIOLOGICAL MESH | | | | | [place], [place] | | | | | | [address] | | | | | | [phone] | | | | | | | | +--------+ + + + + | 06/30/ | Office | Cardiology | Randell Franks, | | | 2018 | Visit | | MD [address] | | | | | | Ave [place], [place] | | | | | | [address] | | | | | | [phone] | | | | | | | | +--------+ + + + + documented as of this encounter Visit Diagnoses Not on filedocumented in this encounter"
--- OUTSIDE RECORDS SUMMARY | ~2019-06-01 | XMS | Encounter Summary ---
Demographics + + + | Address | [address] | | | [place] [address] | + + + | Home Phone [...] [place], [place] | | | | | [address] | | + + + + + | Ellie Vang | ECON | Unknown | | + + + + + Care Team Providers + +------+ + | Care Pipe Fitter Marine Name | Role | Phone | + [...] | | | [address] | [place], [place] | Dx); History of | | | | Mailcode: Center | [address] | Frandy-en-Y gastric | | | | for Health and | | bypass | | | | [facility], [facility] 2 | | | | | | [place], [place] | | | | | | [address] | | | | | | [phone] | | | +--------+---------+ + + + [...] to the healing stomach. There are also alf complications of poor wound healing and gastric u lcers. These ulcers are started by smoking or using other nicotine products (vapor cigarett es etc). Gastric bypass patients should also avoid NSAIDS(ibuprofen, advil, motrin, naprosyn/naproxe n/aleve) to prevent gastric/marginal ulcers. Please visit with our Treasurer (RD) for instructions about your Bariatric diet, assistance with calorie counts, tips and tricks for working with your diet restrictions, an d recipes after bariatric surgery. Daily yogurt; even just 1 tablespoon twice a day will provide enough probiotics to optimize digestion. Try to use a high-quality, probiotic-dense yogurt (eg Zaria's, Stoneyfield, Lif eway Kefir, Customer Quality Specialist Duke's Lithuanian Yogurt). Remember to chew your food well, [...] protein daily, and 64 oz water daily. Screen Printing Stencil Preparer just changed diet to he lp her [...] by communicating with her mother - Follow Screen Printing Stencil Preparer recommendations to help with nausea (decrease volume, [...] Anisa Dillon MD PGY-1, Red Surgery Pager: [phone] documented in this encounter Plan of Treatment [...] | | | | | | [place], [place] | | | | | | [address] | | | | | | [phone] | | | | | | | | +--------+ + + + + | 06/24/ | Surgery | Surgery | Chilo, | OPEN VENTRAL HERNIA | | 2018 | | | MD Jorje [address] | REPAIR WITH | | | | | [address] | BIOLOGICAL MESH | | | | | [place], [place] | | | | | | [address] | | | | | | [phone] | | | | | | | | +--------+ + + + + | 06/30/ | Office | Cardiology | Randell Franks, | | | 2018 | Visit | | MD [address]ion [address] | | | | | | Ave [place], [place] | | | | | | [address] | | | | | | [phone] | | | | | | | [...]
--- OUTSIDE RECORDS SUMMARY | ~2019-06-01 | XMS | Encounter Summary ---
Demographics + + + | Address | [address] | | | [place] [address] | + + + | Home Phone [...] + | Katalina Padilla | ECON | [address] | | | | | [place], [place] | | | | | [address] | | + + + + + | Ellie Vang | ECON | Unknown | | + + + + + Care Team Providers + +------+ + | Care Kitchen Supervisor Name | Role | Phone | [...] | | | | | | [facility] [address] [facility] | | | | | | [facility] | | | | | | [place], [place] | | | | | | [address] | | | +--------+ + + + [...] Rd | | | | | | [place], [place] | | | | | | [address] | | | | | | [phone] | | | | | | | [...] [place] | | | | | | [address] | | | | | | [phone] | | | | | | | | +--------+ + + + + | 06/30/ | Office | Cardiology | Randell Franks, | | | 2018 | Visit | Analisa CARVAJAL [address] | | | | | | Ave [place], [place] | | | | | | [address] | | | | | | [phone] | | | | | | | | +--------+ + + + + documented as of this encounter Visit Diagnoses Not on filedocumented in this encounter"
--- OUTSIDE RECORDS SUMMARY | ~2019-06-01 | XMS | Encounter Summary ---
Demographics + + + | Address | [address] | | | [place] [address] | + + + | Home Phone [...] + | Katalina Padilla | ECON | [address] | | | | | [place], [place] | | | | | [address] | | + + + + + | Ellie Vang | ECON | Unknown | | + + + + + Care Team Providers + +------+ + | Care Cashier Name | Role | Phone | [...] | 2016 | on | Center at [place] [address] | | | | | | [address] | | | | | | Mailcode: [place] | | | | | | for Health and | | | | | | [facility], [facility] 2 | | | | | | [place], [place] | | | | | | [address] | | | | | | [phone] | | | +--------+ + + + [...] [place] | | | | | | [address] | | | | | | [phone] | | | | | | | | +--------+ + + + + | 06/24/ | Surgery | Surgery | Chilo, | OPEN VENTRAL HERNIA | | 2018 | | | MD [address] | REPAIR WITH | | | | | [address] | BIOLOGICAL MESH | | | | | [place], [place] | | | | | | [address] | | | | | | [phone] | | | | | | | | +--------+ + + + + | 06/30/ | Office | Cardiology | Randell Franks, | | | 2018 | Visit | | MD [address] | | | | | | Ave [place], [place] | | | | | | [address] | | | | | | [phone] | | | | | | | | +--------+ + + + + documented as of this encounter Visit Diagnoses Not on filedocumented in this encounter"
--- OUTSIDE RECORDS SUMMARY | ~2019-06-01 | XMS | Encounter Summary ---
Demographics + + + | Address | [address] | | | [place] [address] | + + + | Home Phone [...] + | Katalina Padilla | ECON | [address] | | | | | [place], [place] | | | | | [address] | | + + + + + | Ellie Vang | ECON | Unknown | | + + + + + Care Team Providers + +------+ + | Care Group President Name | Role | Phone | [...] | Tiny, | | | | | MO EST | Fadi Person DO | MD Randell | | | | | PATIENT | [address] | [address] | | | | | [address] | Ave | | | | | | [place], | [place], [place] | | | | | | [place] [address] | [address] | | | | | | Phone: | Phone: | | | | | | [phone] | [phone] | | | | | | Fax: | Fax: | | | | | | [phone] | [phone] | +--------+--------+ + + + + Encounter Details +--------+---------+ + + + | Date | Type | Department | Care Team | Description | +--------+---------+ + + + | 04/03/ | Office | Cardiology | Randell Franks, | Morbid obesity (HCC) | | 2015 | Visit | Preventive at [facility] | [address] | (Primary Dx); Type | | | | [address] | Ave [place], [place] | 2 diabetes mellitus | | | | Mailcode: CH9A | [address] | without complication | | | | [facility] | [phone] | ([facility]) | | | | and [place], | | | | | | [address] | | | | | | [place], [place] | | | | | | [address] | | | | | | [phone] | | | +--------+---------+ + + + [...] 500 mg by mouth once daily. CALCIUM CRB&ZVZ-Y2-[id number]-GENIS ORAL Take 1 tablet by mouth two [...] Tab by mouth two times daily. (Patient leoan ng differently: Take 1 tablet by mouth [...] documented, but if we use her last [facility] weight of 410 lbs, this would put her at 360 lbs before consideration for RYGBP. She is working with the bariatric surgery clinical medical assistant to try to achieve this. She states [...] visit Diet: healthy, working with Bar Surg clinical medical assistant Exercise: "I walk everywhere." ROS: No CP, [...] | Hospital | Adult Acute Care | Cihlo, | | | 2018 | Encounter | | MD Jorje [address] | | | | | | [address] | | | | | | [place], [place] | | | | | | [address] | | | | | | [phone] | | | | | | | | +--------+ + + + + | 06/24/ | Surgery | Surgery | Chilo, | OPEN VENTRAL HERNIA | | 2018 | | | MD Jorje [address] | REPAIR WITH | | | | | [address] | BIOLOGICAL MESH | | | | | [facility] [place] | | | | | | [address] | | | | | | [phone] | | | | | | | | +--------+ + + + + | 06/30/ | Office | Cardiology | Randell Franks, | | | 2018 | Visit | | [address] | | | | | | Ave [place], [place] | | | | | | [address] | | | | | | [phone] | | | | | | | | +--------+ + + + + documented as of this encounter Visit Diagnoses + + | Diagnosis | + + | Morbid obesity (HCC) - Primary Morbid obesity | + + | Type 2 diabetes mellitus without complication (HCC) | + + documented in this encounter
--- OUTSIDE RECORDS SUMMARY | ~2019-06-01 | XMS | Encounter Summary ---
Demographics + + + | Address | [address] | | | [place] [address] | + + + | Home Phone [...] [place], [place] | | | | | [address] | | + + + + + | Ellie Vang | ECON | Unknown | | + + + + + Care Team Providers + +------+ + | Care Lab Assistant Name | Role | Phone [...] | | | | | | [facility] | | | | | | [place], [place] | | | | | | [address] | | | | | | [phone] | | | +--------+ + + + [...] Rd | | | | | | [place], [place] | | | | | | [address] | | | | | | [phone] | | | | | | | | +--------+ + + + + | 06/24/ | Surgery | Surgery | Chilo, | OPEN VENTRAL HERNIA | | 2018 | | | MD Jorje [address] | REPAIR WITH | | | | | [address] | BIOLOGICAL MESH | | | | | [place], [place] | | | | | | [address] | | | | | | [phone] | | | | | | | | +--------+ + + + + | 06/30/ | Office | Cardiology | Randell Franks, | | | 2018 | Visit | | MD [address] | | | | | | Ave [place], [place] | | | | | | [address] | | | | | | [phone] | | | | | | | | +--------+ + + + + documented as of this encounter Visit Diagnoses Not on filedocumented in this encounter"
--- OUTSIDE RECORDS SUMMARY | ~2019-06-01 | XMS | Encounter Summary ---
Demographics + + + | Address | [address] | | | [place] [address] | + + + | Home Phone [...] [place], [place] | | | | | [address] | | + + + + + | Ellie Vang | ECON | Unknown | | + + + + + Care Team Providers + +------+ + | Care Business Systems Analyst Name | Role | Phone | [...] | | 2017 | | Preventive at [facility] | MD [address] | | | | | [address] | Ave [place], [place] | | | | | Mailcode: CH9A | [address] | | | | | [facility] | [phone] | | | | | and [facility], | | | | | | [address] | | | | | | [place], [place] | | | | | | [address] | | | | | | [phone] | | | +--------+ + + + [...] Rd | | | | | | [place], [place] | | | | | | [address] | | | | | | [phone] | | | | | | | | +--------+ + + + + | 06/24/ | Surgery | Surgery | Chilo, | OPEN VENTRAL HERNIA | | 2018 | | | MD [address] | REPAIR WITH | | | | | [address] | BIOLOGICAL MESH | | | | | [place], [place] | | | | | | [address] | | | | | | [phone] | | | | | | | | +--------+ + + + + | 06/30/ | Office | Cardiology | Randell Franks, | | | 2019 | Visit | | MD [address] | | | | | | [place] | | | | | | [address] | | | | | | [phone] | | | | | | | | +--------+ + + + + documented as of this encounter Visit Diagnoses Not on filedocumented in this encounter"
--- OUTSIDE RECORDS SUMMARY | ~2019-06-01 | XMS | Encounter Summary ---
Demographics + + + | Address | [address] | | | [place] [address] | + + + | Home Phone [...] [place], [place] | | | | | [address] | | + + + + + | Ellie Vang | ECON | Unknown | | + + + + + Care Team Providers + +------+ + | Care Electroencephalographic Technologist Name | Role | Phone | [...] | | | | | obesity | [place], [place] | | | | | | (HCC) | [address] | | | | | | Procedures | Phone: | | | | | | PHYSICAL | | | | | | | THERAPY | Fax: | | | | | | REFERRAL | [phone] | | +--------+--------+ + + + + Encounter Details +--------+ + + + + | Date | Type | Department | Care Team | Description | +--------+ + + + + | 06/22/ | Refueling Ramp Attendant | Digestive Health | Ion Pandey, | Pre-op evaluation | | 2016 | | Center at [facility] [address] | [address] | (Primary Dx); Morbid | | | | [address] | [place], [place] | obesity (HCC) | | | | Mailcode: Center | [address] | | | | | for Health and | | | | | | Healing, [address] | | | | | | [place], [place] | | | | | | [address] | | | | | | [phone] | | | +--------+ + + + [...] Rd | | | | | | [place], [place] | | | | | | [address] | | | | | | [phone] | | | | | | | | +--------+ + + + + | 06/24/ | Surgery | Surgery | Chilo | OPEN VENTRAL HERNIA | | 2018 | | | MD Jorje [address] | REPAIR WITH | | | | | [address] | BIOLOGICAL MESH | | | | | [place], [place] | | | | | | [address] | | | | | | [phone] | | | | | | | | +--------+ + + + + | 06/30/ | Office | Cardiology | Randell Franks, | | | 2018 | Visit | | MD [address]ion [address] | | | | | | [address] [place], [place] | | | | | | [address] | | | | | | [phone] | | | | | | | | +--------+ + + + + documented as of this encounter Visit Diagnoses + + | Diagnosis | + + | Pre-op evaluation - Primary Preoperative examination, unspecified | + + | Morbid obesity (HCC) Morbid obesity | + + documented in this encounter"
--- OUTSIDE RECORDS SUMMARY | ~2019-06-01 | XMS | Encounter Summary ---
Demographics + + + | Address | [address] | | | [place] [address] | + + + | Home Phone [...] + | Katalina Padilla | ECON | [address] | | | | | [place], [place] | | | | | [address] | | + + + + + | Ellie Vang | ECON | Unknown | | + + + + + Care Team Providers + +------+ + | Care Continuous Improvement Black Belt Name | Role | Phone | + [...] | 2019 | | Center at [facility] [address] | | Review | | | | [address] | | | | | | Mailcode: [place] | | | | | | [facility] and | | | | | | [facility], [facility] 2 | | | | | | [place], [place] | | | | | | [address] | | | | | | [phone] | | | +--------+ + + + [...] Rd | | | | | | [place], [place] | | | | | | [address] | | | | | | [phone] | | | | | | | | +--------+ + + + + | 06/24/ | Surgery | Surgery | [place], | OPEN VENTRAL HERNIA | | 2019 | | | MD Jorje [address] | REPAIR WITH | | | | | [address] | BIOLOGICAL MESH | | | | | [place], [place] | | | | | | [address] | | | | | | [phone] | | | | | | | | +--------+ + + + + | 06/30/ | Office | Cardiology | Randell Franks, | | | 2019 | Visit | | [address] | | | | | | [place], [place] | | | | | | [address] | | | | | | [phone] | | | | | | | | +--------+ + + + + documented as of this encounter Visit Diagnoses Not on filedocumented in this encounter"
--- OUTSIDE RECORDS SUMMARY | ~2019-06-01 | XMS | Encounter Summary ---
Demographics + + + | Address | [address] | | | [place] [address] | + + + | Home Phone [...] + | Katalina Padilla | ECON | [address] | | | | | [place], [place] | | | | | [address] | | + + + + + | Ellie Vang | ECON | Unknown | | + + + + + Care Team Providers + +------+ + | Care Boat Pilot Name | Role | Phone | [...] | Encounter | [address] | [address] | | | | | [address] | [place], [place] | | | | | [place], | [address] | | | | | [place] [address] | [phone] | | | | | [phone] | | | +--------+ + + + [...] hours or on weekends and holiday Hospital Police And Fire Dispatcher toll free [phone]. [phone] and have the GI doctor union carpenter paged. The provider who performed your procedure [...] | | 0 | | | | CRB&ATA-V8-CLX85-GEN | mouth two times | | | [...] 2:35 PM PST PRE PROCEDURE NOTE: MR# [id number] Subjective: Elzbieta Cristina is a 43 y.o. [...] [place] | | | | | | [address] | | | | | | [phone] | | | | | | | | +--------+ + + + + | 06/24/ | Surgery | Surgery | Chilo, | OPEN VENTRAL HERNIA | | 2019 | | | MD [address] | REPAIR WITH | | | | | [address] | BIOLOGICAL MESH | | | | | [place], [place] | | | | | | [address] | | | | | | [phone] | | | | | | | | +--------+ + + + + | 06/30/ | Office | Cardiology | Randell Franks, | | | 2019 | Visit | | [address] | | | | | | [place], [place] | | | | | | [address] | | | | | | [phone] | | | | | | | [...] -----+ | MRN: | [facility] | | [id number] Date: 06/23/2018Patient Name: Elzbieta Curtis #: | ENDOSCOP Y | | [id number] of : 1975CSN: [id number] Type: | | | AmbulatoryRoom: SORProcedure: Upper GI | | | endoscopyIndications: Nausea with vomiting, Status post | | | Cgbx-vs-XPuvihivvi: KALEB WILCOX MD (Doctor)JOSE | | | NASIMA, Earth Mover | | | (Earth Mover)Referring MD: DANIELLE GARCÍAPRequesting | | | Provider: [...] | | | The Olympus GIF-[id number] Gastroscope #[id number] was | | | introduced through the [...] endoscope without resistance. The | | | wwvxa-ky-gbfrauf limb was characterized by healthy appearing | [...] Initiated On: | | | 06/23/2018 3:58 [facility] Letter to: FADI GOODRICH DO [...] | Letter to: | | | FADI GOODRICH DO | | + +--------- -----+ + +---------+ + + | Performing | Address | City/State/[facility] | Phone Number | | Organization | [...] AMES | [address] | [place], [place] | | | JUSTINE DAWN OF [facility] | [address] | [address] | | | TESTS | | | [...] | | | | | | Until [facility] 06/24/18 at 0027, | | | | [...] intravenous, POSTPROCEDURE PRN, | | | Starting [facility] 06/23/18 at 1532, | | | Until [facility] 06/24/18 at 0027, | | | hypopnea | | + +---+ | | | + +---+ | ondansetron (ZOFRAN) injection | | | 4 mg 4 mg, intravenous, | | | POSTPROCEDURE PRN, 1 dose, | | | Starting [facility] 06/23/18 at 1532, | | | Until [facility] 06/24/18 at 0027, | | | nausea/vomiting [...]
--- OUTSIDE RECORDS SUMMARY | ~2019-06-01 | XMS | Encounter Summary ---
Demographics + + + | Address | [address] | | | [place] [address] | + + + | Home Phone [...] + | Katalina Padilla | ECON | [address] | | | | | [place], [place] | | | | | [address] | | + + + + + | Ellie Vang | ECON | Unknown | | + + + + + Care Team Providers + +------+ + | Care Prototype Assembler Electronics Name | Role | Phone | + +------+ + | Kenyatta Cardenas MD | PCP | | + +------+ + Encounter Details +--------+ + + + + | Date | Type | Department | Care Team | Description | +--------+ + + + + | 03/01/ | Procedure | Diagnostic Imaging | | | | 2019 | Pass | Services at [facility] | | | | | | [address] | | | | | | Lesly Gutiérrez Mailcode: | | | | | | [address] [facility] | | | | | | [place], [place] | | | | | | [address] | | | | | | [phone] | | | +--------+ + + + [...] Rd | | | | | | [place], [place] | | | | | | [address] | | | | | | [phone] | | | | | | | | +--------+ + + + + | 06/24/ | Surgery | Surgery | Chilo | OPEN VENTRAL HERNIA | | 2018 | | | MD [address] | REPAIR WITH | | | | | [address] | BIOLOGICAL MESH | | | | | [place], [place] | | | | | | [address] | | | | | | [phone] | | | | | | | | +--------+ + + + + | 06/30/ | Office | Cardiology | Randell Franks, | | | 2018 | Visit | | [address] | | | | | | [place] | | | | | | [address] | | | | | | [phone] | | | | | | | | +--------+ + + + + documented as of this encounter Visit Diagnoses Not on filedocumented in this encounter"
--- OUTSIDE RECORDS SUMMARY | ~2019-06-01 | XMS | Encounter Summary ---
Demographics + + + | Address | [address] | | | [place] [address] | + + + | Home Phone [...] [place], [place] | | | | | [address] | | + + + + + | Ellie Vang | ECON | Unknown | | + + + + + Care Team Providers + +------+ + | Care Nitrocellulose Maker Name | Role | Phone | [...] | | | | | | Pavilion [address] | | | | | | [address] | | | | | | Physician's | | | | | | Pavilion | | | | | | [facility] | | | | | | [place], [place] | | | | | | [address] | | | | | | [phone] | | | +--------+ + + + [...] Rd | | | | | | [place], [place] | | | | | | [address] | | | | | | [phone] | | | | | | | | +--------+ + + + + | 06/24/ | Surgery | Surgery | Chilo, | OPEN VENTRAL HERNIA | | 2018 | | | MD Jorje [address] | REPAIR WITH | | | | | [address] | BIOLOGICAL MESH | | | | | [place] | | | | | | [address] | | | | | | [phone] | | | | | | | | +--------+ + + + + | 06/30/ | Office | Cardiology | Randell Franks, | | | 2018 | Visit | | [address] | | | | | | [place], [place] | | | | | | [address] | | | | | | [phone] | | | | | | | | +--------+ + + + + documented as of this encounter Visit Diagnoses Not on filedocumented in this encounter"
--- OUTSIDE RECORDS SUMMARY | ~2019-06-01 | XMS | Encounter Summary ---
Demographics + + + | Address | [address] | | | [place] [address] | + + + | Home Phone [...] [place], [place] | | | | | [address] | | + + + + + | Ellie Vang | ECON | Unknown | | + + + + + Care Team Providers + +------+ + | Care Brake Rider Name | Role | Phone | [...] | | | | | | [place] [address] | | | +--------+ + + + [...] Rd | | | | | | [place], [place] | | | | | | [address] | | | | | | [phone] | | | | | | | | +--------+ + + + + | 06/24/ | Surgery | Surgery | Chilo, | OPEN VENTRAL HERNIA | | 2019 | | | MD [address] | REPAIR WITH | | | | | [address] | BIOLOGICAL MESH | | | | | [place] | | | | | | [address] | | | | | | [phone] | | | | | | | | +--------+ + + + + | 06/30/ | Office | Cardiology | Randell Franks, | | | 2018 | Visit | | [address] | | | | | | [place] | | | | | | [address] | | | | | | [phone] | | | | | | | | +--------+ + + + + documented as of this encounter Visit Diagnoses Not on filedocumented in this encounter"
--- OUTSIDE RECORDS SUMMARY | ~2019-06-01 | XMS | Encounter Summary ---
Demographics + + + | Address | [address] | | | [place] [address] | + + + | Home Phone [...] [place], [place] | | | | | [address] | | + + + + + | Ellie Vang | ECON | Unknown | | + + + + + Care Team Providers + +------+ + | Care Finance Administrator Name | Role | Phone | + +------+ + | Fadi Goodrich DO | PCP | | + +------+ + Encounter Details +--------+ + + + + | Date | Type | Department | Care Team | Description | +--------+ + + + + | 08/22/ | Abstract | Cardiology | Randell Franks, | | | 2013 | | Preventive at [facility] | MD [address] | | | | | [address] | Ave [place], [place] | | | | | Mailcode: CH9A | [address] | | | | | [facility] | [phone] | | | | | and Healing, | | | | | | [address] | | | | | | [place], [place] | | | | | | [address] | | | | | | [phone] | | | +--------+ + + + [...] Rd | | | | | | [place], [place] | | | | | | [address] | | | | | | [phone] | | | | | | | | +--------+ + + + + | 06/24/ | Surgery | Surgery | Chilo | OPEN VENTRAL HERNIA | | 2018 | | | MD [address] | REPAIR WITH | | | | | [address] | BIOLOGICAL MESH | | | | | [place], [place] | | | | | | [address] | | | | | | [phone] | | | | | | | | +--------+ + + + + | 06/30/ | Office | Cardiology | Randell Franks, | | | 2018 | Visit | | [address] | | | | | | [address] [place], [place] | | | | | | [address] | | | | | | [phone] | | | | | | | | +--------+ + + + + documented as of this encounter Visit Diagnoses Not on filedocumented in this encounter"
--- OUTSIDE RECORDS SUMMARY | ~2019-06-01 | XMS | Encounter Summary ---
Demographics + + + | Address | [address] | | | [place] [address] | + + + | Home Phone [...] [place], [place] | | | | | [address] | | + + + + + | Ellie Vang | ECON | Unknown | | + + + + + Care Team Providers + +------+ + | Care Escrow Officer Name | Role | Phone | [...] | | | | | | [place] [address] | | | +--------+ + + + [...] Rd | | | | | | [place], [place] | | | | | | [address] | | | | | | [phone] | | | | | | | | +--------+ + + + + | 06/24/ | Surgery | Surgery | Chilo, | OPEN VENTRAL HERNIA | | 2019 | | | MD [address] | REPAIR WITH | | | | | [address] | BIOLOGICAL MESH | | | | | [place] | | | | | | [address] | | | | | | [phone] | | | | | | | | +--------+ + + + + | 06/30/ | Office | Cardiology | Randell Franks, | | | 2018 | Visit | | [address] | | | | | | [place] | | | | | | [address] | | | | | | [phone] | | | | | | | | +--------+ + + + + documented as of this encounter Visit Diagnoses Not on filedocumented in this encounter"
--- OUTSIDE RECORDS SUMMARY | ~2019-06-01 | XMS | Encounter Summary ---
Demographics + + + | Address | [address] | | | [place] [address] | + + + | Home Phone [...] [place], [place] | | | | | [address] | | + + + + + | Ellie Vang | ECON | Unknown | | + + + + + Care Team Providers + +------+ + | Care Public Health Service Officer Name | Role | Phone | + +------+ + | Fadi Goodrich DO | PCP | | + +------+ + Encounter Details +--------+ + + + + | Date | Type | Department | Care Team | Description | +--------+ + + + + | 11/04/ | Telephone | [facility] | Leslie Mistry, | | | 2017 | | Floor [address] | PhD [address] [facility] | | | | | [address] Mailcode: | [address] | | | | | [address] [place], [place] | | | | | Health and Healing, | [address] | | | | | [facility] | [phone] | | | | | Floor [place], [place] | | | | | | [address] | | | | | | [phone] | | | +--------+ + + + [...] Rd | | | | | | [place], [place] | | | | | | [address] | | | | | | [phone] | | | | | | | | +--------+ + + + + | 06/24/ | Surgery | Surgery | Chilo, | OPEN VENTRAL HERNIA | | 2018 | | | MD Jor[address] | REPAIR WITH | | | | | [address] | BIOLOGICAL MESH | | | | | [place], [place] | | | | | | [address] | | | | | | [phone] | | | | | | | | +--------+ + + + + | 06/30/ | Office | Cardiology | Randell Franks, | | | 2018 | Visit | | MD [address] | | | | | | [address] [place], [place] | | | | | | [address] | | | | | | [phone] | | | | | | | | +--------+ + + + + documented as of this encounter Visit Diagnoses Not on filedocumented in this encounter"
--- OUTSIDE RECORDS SUMMARY | ~2019-06-01 | XMS | Clinical Summary ---
Demographics + + + | Address | [address] | | | [place] [address] | + + + | Home Phone [...] + | Author | [facility] | | | and [place] | + + + | Organization | [facility] | | | and [place] [...] Providers + +------+ + | Care Hand Bootmaker Name | Role | Phone | + [...] 400 mg | Daily. | | | 08/15 [...] | 2 times daily. | | | 120 | | e [...] 0 | | | Activ | | Fzamgig-Yvxwukocd-Fm | mouth 2 times daily. 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 | + + + + [...] qd x | | 30 October 2015 [facility] Assessment & Plan: Hgb appears to [...] obesityPickwickian syndrome | | Recent admission to [facility] for 100lb | | weight gain- DC on diuresis on 03/06/2016- she feel improvedShyesenia | | was on Metolazone and Torsemide prior to hospitalization- both | | have better bioavailability than lasix in gut edema but she | | retained 100lbs - how ever she is currently on only Torsemide | | 100mg Q12hrs started in [place] and her weight been stable | | sinceGrace has no other complaints.She is pending to see | | NephrologistCiriloo 02/16/2016([facility])- Normal LV systolic | | function, mildly [...] morbid obesity, she is enrolled in the [facility] bariatric program. | | She [...] inpatient, tolerating well in the | | [facility] [place] arranging for BiPAP upon d/c home to [facility] | | areaOverview: Cannot tolerate CPAP [...] + + + + | Overview: Overview: [facility] Assessment & Plan: Patient with | [...] responded well to diuresis at | | [facility] (lost 60lb, down to 410), and then reaccumulated water | | weight on Torsemide and metolazone, which should be less effected | | by gut wall edema than Lasix. She has an appt with nephrology at | | [facility] on 03/17. Weight now 200kg (440lb, down [...] Defer Metolazone to her | | outpatient Medical Scientific Officer or Financial Reporting Analyst- Will continue KCL | | supplementation at 60meq QID despite the spironolactone as she | | remains on the low side- Encourage daily weights at home with a | | log; she should contact her PCP, Medical Scientific Officer or Financial Reporting Analyst for | | a 10lb weight gain [...] 9 | + + + + Encounters +--------+---------+ + + + | Date | Type | Specialty | Care Team | Description | +--------+---------+ + + + | 05/26/ | Office | Audiology | Sherron Freedman MS | Normal hearing noted | | 2019 | Visit | | CCC-A | on examination | | | | | | (Primary Dx); | | | | | | Pressure sensation | | | | | | in both ears | +--------+---------+ + + + | 04/28/ | Office | Cardiology | Sulema Altamirano | Chronic diastolic | | 2018 | Visit | | HILDA Pope | [...] insulin | | | | | | ([facility]); Mixed | | | | | | hyperlipidemia; | | | | | | Personal history of | | | | | | DVT (deep vein | | | | | | thrombosis); History | | | | | | of pulmonary | | | | | | embolism | +--------+---------+ + + + from Last 3 Months [...] + | Pulse | 78 | 04/28/2019 1256 PDT | + + [...] 1256 PDT | + + + + Plan [...] + + from Last 3 Months Results DIAGNOSTIC REPORT - EXTERNAL SCAN (05/26/2019 0:00 PDT) + + + | Narrative | Performed At | + + + | Ordered by an | | | unspecified provider. | | + + + ECG 12 lead (04/28/2019 13:27 PDT) + [...] | | | | | by [employer] [place] Read Only, | | | | | | [employer] [place] ([id number]), | | | | | | acquisitions editor [place] Alberto | | | | | | ([id number]) on 04/28/2019 | | | | | [...] | [employer] | [employer] | [id number] | 10/28/19 | [phone] | | [employer] | | MEDICAID HMO | HEALTH | | 19-Pre | 1 | | id | | | MDCD | | sent | | | | | | [place] | | | | | | + +--------+ +--------+ +---------+--------+ | [employer] | [employer] | [id number] | | [phone] | | [employer] | | MEDICAID HMO [...] [place] | | | 3 (Home) | [address] | + +--------+ +--------+ + + | Elzbieta Cristina | Person | Self | [birth year] | [address] | | | jordon/Gutierrez | | 1975 | [phone] | [address] [place] | | | [place] | | | 3 (Home) | [address] | + +--------+ +--------+ + + Advance Directives Patient has advance care planning documents on file. For more information, please contact:[facility] [place] [address]
--- OUTSIDE RECORDS SUMMARY | ~2019-06-01 | XMS | Encounter Summary ---
Demographics + + + | Address | [address] | | | [place] [address] | + + + | Home Phone [...] [place], [place] | | | | | [address] | | + + + + + | Ellie Vang | ECON | Unknown | | + + + + + Care Team Providers + +------+ + | Care Financial Auditor Name | Role | Phone | + +------+ + | Fadi Goodrich DO | PCP | | + +------+ + Encounter Details +--------+ + + + + | Date | Type | Department | Care Team | Description | +--------+ + + + + | 06/07/ | Hospital | Radiology/Imaging | Ronna Clarke, | | | 2018 | Encounter | Lab at [facility] [address] | ACNP [address] | | | | | [address] [place] Mailcode: | [place], [place] | | | | | [address] [facility] | [address] | | | | | Health and Healing, | [phone] | | | | | [address] | | | | | | Floor [place], [place] | | | | | | [address] | | | | | | [phone] | | | +--------+ + + + [...] | | 0 | | | | CRB&SVV-D2-CAR39-GEN | mouth two times | | | [...] Rd | | | | | | [place], [place] | | | | | | [address] | | | | | | [phone] | | | | | | | | +--------+ + + + + | 06/24/ | Surgery | Surgery | Chilo, | OPEN VENTRAL HERNIA | | 2018 | | | MD Jorje [address] | REPAIR WITH | | | | | [address] | BIOLOGICAL MESH | | | | | [facility] [place] | | | | | | [address] | | | | | | [phone] | | | | | | | | +--------+ + + + + | 06/30/ | Office | Cardiology | Randell Franks, | | | 2018 | Visit | | [address] | | | | | | [place], [place] | | | | | | [address] | | | | | | [phone] | | | | | | | [...] + + + | EXAM: Esophagram with attic blower radiograph HISTORY: RYGB 03/01/2018, | [facility] | | vomiting/pain ever since COMPARISON: 04/27/2018 CT TECHNIQUE: | RADIOLOGY VOICE | | [employer] Architect radiograph was performed. Single contrast exam of the esophagus, | RECOGNITION 2 | | gastric pouch, and gastrojejunostomy in upright positioning. | | | Radiation dose reduction technique was maximized where appropriate | | | using pulsed fluoroscopy and fluoro-store images. Fluoro Time 57 | | | second(s) FINDINGS: [employer] Architect shows stone in the upper pole of [...] AM PST EXAM: Esophagram | | with attic blower radiograph HISTORY: RYGB 03/01/2018, vomiting/pain ever since COMPARISON: | | 04/27/2018 CT TECHNIQUE: [employer] Architect radiograph was performed. Single contrast exam of the | | esophagus, gastric pouch, and gastrojejunostomy in upright positioning. Radiation dose | | reduction technique was maximized where appropriate using pulsed fluoroscopy and | | fluoro-store images. Fluoro Time 57 second(s) FINDINGS:[employer] Architect shows stone in the upper | | [...]
--- OUTSIDE RECORDS SUMMARY | ~2019-06-01 | XMS | Encounter Summary ---
Demographics + + + | Address | [address] | | | [place] [address] | + + + | Home Phone [...] [place], [place] | | | | | [address] | | + + + + + | Ellie Vang | ECON | Unknown | | + + + + + Care Team Providers + +------+ + | Care Souvenir And Novelty Maker Name | Role | Phone | [...] + + | 05/13/ | Emergency | [facility] Emergency | Nay Joe | | | 2019 - | | Department [address] MD [address] | | | | | [address] | [address] | | | 05/14/ | | [facility] | [place], [place] | | | 2019 | | [place], [place] | [address] | | | | | [address] | [phone] | | | | | [phone] | | | +--------+ + + + [...] might be different fr om the original. [facility] Discharge Summary Green Surgery Admit Date: [...] by mouth once daily at bedtime. CALCIUM CRB&NKW-X2-HOL02-GENIS ORAL Take 2 tablets by mouth two [...] passing gas, please go directly to the [facility] department to be evaluated. Pain Medications: [...] the prescribed narcotic-opioid (e.g. oxycodone, hydrocodone, Vicodin, [place], Percoce t, Dilaudid) as needed. Opioid pain medications may cause constipation, so be sure to take a stool softener if you take an opioid pain medication. FOLLOW-UP: Follow-up with your primary care provider for pain control. Dr. Tiwari's undertaker helper will contact you to try to find a date for surgery. Follow Up: Future Appointments Provider Department Dept Phone Center 06/27/2019 11:55 AM [facility] PHONE/RN CLIN 3 Preoperative Medicine [facility] at [place] [address] [phone] [facility] 06/30/2019 11:30 AM Aly Franks Cardiology in [place] [facility] [place] [phone] Cardiology Schedule the following appointment(s) when you get home JONES TIWARI MD. Specialty: General Surgery Why: Dr. Tiwari's undertaker helper will call you to schedule a surgery date. Contact information [address] [place] [address] [place] [address] Kenyatta Hylton MD. Specialty: Family [...] oriented. Grossly intact. Anisa Christopher MD PhD [facility] General Surgery ATTENDING PHYSICIAN STATEMENT I saw the patient and have repeated the pertinent portions of the history and physical exam . I agree with the findings, assessment and plan as documented by the resident. Johana Holloway MD Division of Gastrointestinal and General Surgery [facility] [address] [place] [address] Office: [phone] documented in this e ncounter Discharge Instructions [...] surgery date up as possible and the undertaker helper will contact you. Elec tronically signed by [...] passing gas, please go directly to the [facility] department to be evaluated. Pain Medications: [...] the prescribed narcotic-opioid (e.g. oxycodone, hydrocodone, Vicodin, [place], Percoce t, Dilaudid) as needed. Opioid pain medications may cause constipation, so be sure to take a stool softener if you take an opioid pain medication. FOLLOW-UP: Follow-up with your primary care provider for pain control. Dr. Tiwari's undertaker helper will contact you to try to find [...] | | 0 | | | | CRB&GBP-T7-INH17-GEN | mouth two times | | | [...] [place] | | | | | | [address] | | | | | | [phone] | | | | | | | | +--------+ + + + + | 06/24/ | Surgery | Surgery | Chilo, | OPEN VENTRAL HERNIA | | 2018 | | | MD [address] Recinos | REPAIR WITH | | | | | [address] | BIOLOGICAL MESH | | | | | [place] | | | | | | [address] | | | | | | [phone] | | | | | | | | +--------+ + + + + | 06/30/ | Office | Cardiology | Aly Franks, | | | 2018 | Visit | | [address] | | | | | | [place], [place] | | | | | | [address] | | | | | | [phone] | | | | | | | [...] [facility] | [address] | [place], [place] | | | [facility] | [address] | [address] | | | TESTS | | | [...] [facility] | [address] | [place] [address] | | | SERVICES, CORE | CLARENCE [...] MDRD equation recommended by the National | [facility] | | Kidney Disease Education Program. Estimated [...] [facility] | [address] | [place] [address] | | | SERVICES, [place] [facility] [...] abdomen and pelvis WITH intravenous contrast. | [facility] | | HISTORY: Concern for incarcerated hernia [...] | + + + + + | [facility] | [address] | [place] [address] | | | SERVICES, CORE | PARK [...] 5-6 weeks | | | 850 - 56014 6-7 weeks | | | 4000 - 859332 7-12 weeks | | | 50826 - 853579 12-16 weeks | | | 18433 - 384654 16-29 | | | weeks 1400 - 84122 | | | 29-41 weeks 940 - 30719 | | | This test has not been approved for use as a tumor marker in | | | males or females. | | + + + + + + + + | Performing | Address | City/State/Zipcode | Phone Number | | Organization | | | | + + + + + | [facility] | [address] | [place] [address] | | | SERVICES, CORE | PARK [...] | + + + + + | [facility] | [address] [facility] | [place] [address] | | | SERVICES, CORE | CLARENCE [...] | + + + + + | [facility] | [address] | [place] [address] | | | SERVICES, L[place] | [address] | | | + + + + + ED INFORMATION EXCHANGE (05/13/2019 5:14 PM PDT) + + | Specimen | + + | | + + + + + | Narrative | Performed At | + + + | COLLECTIVE?NOTIFICATION?05/13/2019 17:13?DYLAN ROMERO?MRN: | [facility] | | [id number] Criteria Met Has Guidelines PDMP Security | MEDICAL | | and Safety No recent Security Events currently on file ED Care | [employer]OLOG[employer] | | Guidelines from [facility] Last Updated: 12/06/18 9:53 AM | | | Care Coordination: Receiving mental health services with | | | [facility].? Please contact [facility] for mental health concerns.? | | | Sarah/Toni Centeno: [phone]? Kishan: [phone].? | | | These are guidelines and the provider should exercise clinical | | | judgment when providing care. Care History Medical/Surgical | | | 05/11/19 12:00 AM [facility] Patient is | | | currently established with [facility]. If patient is seen in | | | the ED during business hours. Please contact [facility] at [facility] | | | Clinic. Care Recommendation: [...] 08/23/18 12:00 AM | | | [facility] PATIENT HAS A PCP APT TO [...] 30 MG TABLET 5 BERNARDO MARTIN, PLASTER MIXER 0 | | | 2019-03-30 SUDOGEST 30 MG TABLET 30 BERNARDO MARTIN, PLASTER MIXER 0 | | | 2019-03-20 ALPRAZOLAM 1 [...] (12 mo.) Facility Visits | | | [facility] 1 [facility] 1 | | | [facility] 2 Total 4 Note: Visits indicate total | | | known visits. Recent Emergency Department Visit Summary Date | | | Facility City State Type Diagnoses or Chief Complaint May 13, 2019 | | | [facility] [place] Emergency | | | 10,800. A303 May 10, 2019 [facility] 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 [place] Emergency RIGHT LEG PAIN DUE TO FALL | | | Strain of unsp musc/tend at lower leg level, right leg, init Jul | | | 2018 [facility] [place] Emergency Other group home | | | (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 Upper abdominal pain, unspecified | | | Bariatric surgery status Allergy status to oth drug/meds/biol | | | subst status Noninfective gastroenteritis and colitis, | | | unspecified Obesity, unspecified Anxiety disorder, | | | unspecified intermediate (current) use of aspirin Allergy | | | status to penicillin Personal history of pulmonary embolism | | | Recent Inpatient Visit Summary No recorded inpatient visits. | | | Care Team Provider Specialty Phone Fax Service Dates Treva, | | | Rob Home Service Advisor/Machine Helper Mar 27, 2018 - | | | Current Bernard Hylton MD Internal Medicine: Pulmonary Disease | | | Aug 23, 2018 - Current [employer] This patient has | | | registered at the [facility] Emergency | | | Department For more information visit: | | | [email or web address] | | | [email or web address] PLEASE NOTE: 1. Any care recommendations [...] or completeness of information provided. ? 2019 [employer] | | | [employer]. - www.[email or web address] | | + + + + + | Procedure Note | + + | Service Account, Rtf Results Inbound - 05/13/2019 5:16 PM PDT Formatting of this | | note might be different from the original.COLLECTIVE?NOTIFICATION?05/13/2019 | | 17:13?DYLAN ROMERO? [facility] Has Guidelines PDMPSecurity and | | SafetyNo recent Security Events currently on fileED Care Guidelines from [facility] - | | [place] Updated: 12/06/18 9:53 AM Care Coordination:Receiving mental health | | services with [facility].? Please contact [facility] for mental health concerns.? | | Sarah/Toni Centeno: [phone]? Kishan: [phone].?These are guidelines | | and the provider should exercise clinical judgment when providing care.Care | | HistoryMedical/Vngsoscn10/16/19 12:[address] [facility] Patient is currently | | established with [facility]. If patient is seen in the ED during business hours. | | Please contact CHWs at [facility].Care Recommendation:This patient has had 5 or [...] clinical judgment when providing care.08/23/18 12:00 AM [facility] | | Hospital PATIENT HAS A [...] 30 MG TABLET 5 BERNARDO MARTIN, PLASTER MIXER 0 2019-03-30 SUDOGEST 30 MG TABLET 30 | | BERNARDO MARTIN, PLASTER MIXER 0 2019-03-20 ALPRAZOLAM 1 MG TABLET 60 [...] 0 E.D. Visit Count (12 mo.)Facility Visits [facility] | | Health [address] [place] [address] [facility] 2 Total 4 Note: | | Visits indicate total known visits. Recent Emergency Department Visit SummaryDate | | Facility City State Type Diagnoses or Chief Complaint May 13, 2019 [facility] | [facility] [place] Emergency 10,800. A303 May 10, 2019 [facility] | | [place] Emergency Nausea with vomiting, unspecified Solitary pulmonary nodule | | Anxiety disorder, unspecified Ventral hernia without obstruction or gangrene | | Unspecified abdominal pain Diarrhea, unspecified Allergy status to oth | | drug/meds/biol subst status Prsnl hx of TIA (TIA), and cereb infrc w/o resid deficits | | Other continuous churn buttermaker (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 Allergy status to penicillin December 03, 2018 | | [facility] [place] Emergency RIGHT LEG PAIN DUE TO FALL Strain of | | unsp musc/tend at lower leg level, right leg, init Aug 22, 2018 [facility] | | [place] Emergency Other continuous churn buttermaker (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 Upper abdominal pain, | | unspecified Bariatric surgery status Allergy status to oth drug/meds/biol subst | | status Noninfective gastroenteritis and colitis, unspecified Obesity, unspecified | | Anxiety disorder, unspecified intermediate (current) use of aspirin Allergy status | | to penicillin Personal history of pulmonary embolism Recent Inpatient Visit | | SummaryNo recorded inpatient visits. Care TeamProvider Specialty Phone Fax Service Dates | | Rob Tilley Home Service Advisor/Machine Helper Mar 27, 2018 - Current | | Bernard Hylton MD Internal Medicine: Pulmonary Disease Aug 23, 2018 - Current | | [employer] patient has registered at the [facility] | | Emergency Department For more information visit: | | [email or web address] PLEASE | | NOTE: 1. Any care [...] to the | | limitations of applicable [employer] Policies. 3. You should consult directly with | | the organization that provided a care guideline or other clinical history with any | | questions about additional information or accuracy or completeness of information | | provided.? 2019 [employer]. - www.[facility] | |[facility] 3 | |Benzos 4 | |Opioids 7 | |Long Acting Opioids 0 | | | | | | | |E.D. Visit Count (12 mo.) | |Facility Visits | |[facility] 1 | |[facility] 1 | |[facility] 2 | |Total 4 | |Note: Visits indicate total known visits. | | | |Recent Emergency Department Visit Summary | |Date Facility City State Type Diagnoses or Chief Complaint | |May 13, 2019 [facility] [place] Emergency | | 10,800. A303 | | | |May 10, 2019 [facility] [place] Emergency | | Nausea [...] penicillin | | | |December 03, 2018 [facility]. [place] Emergency | | RIGHT LEG PAIN DUE TO FALL | | Strain of unsp musc/tend at lower leg level, right leg, init | | | |Aug 22, 2018 [facility] [place] Emergency | | Other group home (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 | | Upper abdominal pain, unspecified | | Bariatric surgery status | | Allergy status to oth drug/meds/biol subst status | | Noninfective gastroenteritis and colitis, unspecified | | Obesity, unspecified | | Anxiety disorder, unspecified | | intermediate (current) use of aspirin | | Allergy status to penicillin | | Personal history of pulmonary embolism | | | | | | | |Recent Inpatient Visit Summary | |No recorded inpatient visits. | | | |Care Team | |Provider Specialty Phone Fax Service Dates | |Rob Tilley Home Service Advisor/Machine Helper Mar 27, 2018 - Current | |Bernard Hylton MD Internal Medicine: Pulmonary Disease Aug 23, 2018 - Current | | | |[employer] | |This patient has registered at the [facility] Emergency Departmen t | |For more information visit: [email or web address] | |PLEASE NOTE: | | 1. Any care recommendations and other clinical information are provided as guidelines or for historical purposes only, and providers should exercise their own clinical judgment whe n providing care. | | 2. You may only use this information for purposes of treatment, payment or health care o perations activities, and subject to the limitations of applicable [employer] Policies. | | 3. You should consult directly with the organization that provided a care guideline or o ther clinical history with any questions about additional information or accuracy or complet eness of information provided. | | | |? 2019 [employer]. - www.[email or web address] | + + + + + + + | Performing | Address | City/State/Zipcode | Phone Number | | Organization | | | | + + + + + | [facility] | [address], | [place], [place] | [phone] | | [employer] | [address] | [address] | | + + + + + [...] | | | | ONCE, 1 dose, [facility] 05/13/19 at | | PM PDT [...] | | | | ONCE, 1 dose, [facility] 05/13/19 at | | PM PDT [...] | | | | ONCE, 1 dose, [facility] 05/14/19 at | | PM [...]
--- OUTSIDE RECORDS SUMMARY | ~2019-06-01 | XMS | Encounter Summary ---
Demographics + + + | Address | [address] | | | [place] [address] | + + + | Home Phone [...] [place], [place] | | | | | [address] | | + + + + + | Ellie Vang | ECON | Unknown | | + + + + + Care Team Providers + +------+ + | Care Byproducts Pump Operator Name | Role | Phone [...] | | 2017 | | Center at [facility] [address] | ACNP [address] | | | | | [address] | Ave [place], [place] | | | | | Mailcode: [place] | [address] | | | | | for Health and | [phone] | | | | | [facility] 2 | | | | | | [place], [place] | | | | | | [address] | | | | | | | [...] Rd | | | | | | [place], [place] | | | | | | [address] | | | | | | [phone] | | | | | | | | +--------+ + + + + | 06/24/ | Surgery | Surgery | Chilo | OPEN VENTRAL HERNIA | | 2018 | | | MD [address] | REPAIR WITH | | | | | [address] | BIOLOGICAL MESH | | | | | [place], [place] | | | | | | [address] | | | | | | [phone] | | | | | | | | +--------+ + + + + | 06/30/ | Office | Cardiology | Randell Franks, | | | 2018 | Visit | | MD [address] | | | | | | [place] | | | | | | [address] | | | | | | [phone] | | | | | | | | +--------+ + + + + documented as of this encounter Visit Diagnoses Not on filedocumented in this encounter"
--- OUTSIDE RECORDS SUMMARY | ~2019-06-01 | XMS | Encounter Summary ---
Demographics + + + | Address | [address] | | | [place] [address] | + + + | Home Phone [...] + | Katalina Padilla | ECON | [address] | | | | | [place], [place] | | | | | [address] | | + + + + + | Ellie Vang | ECON | Unknown | | + + + + + Care Team Providers + +------+ + | Care Tibco Developer Name | Role | Phone | + +------+ + | Fadi Goodrich DO | PCP | | + +------+ + Encounter Details +--------+ + + + + | Date | Type | Department | Care Team | Description | +--------+ + + + + | 07/06/ | Abstract | Digestive Health | Clinic, Surgery | | | 2016 | | [facility] [address] | | | | | | [address] | | | | | | Mailcode: [place] | | | | | | [facility] and | | | | | | [facility] 2 | | | | | | [place], [place] | | | | | | [address] | | | | | | [phone] | | | +--------+ + + + [...] | | | | | | [facility] [place] | | | | | | [address] | | | | | | [phone] | | | | | | | | +--------+ + + + + | 06/24/ | Surgery | Surgery | Chilo, | OPEN VENTRAL HERNIA | | 2018 | | | MD [address] | REPAIR WITH | | | | | [address] | BIOLOGICAL MESH | | | | | [place], [place] | | | | | | [address] | | | | | | [phone] | | | | | | | | +--------+ + + + + | 06/30/ | Office | Cardiology | Randell Franks, | | | 2019 | Visit | | MD [address] | | | | | | [address] [place], [place] | | | | | | [address] | | | | | | [phone] | | | | | | | | +--------+ + + + + documented as of this encounter Visit Diagnoses Not on filedocumented in this encounter"
--- OUTSIDE RECORDS SUMMARY | ~2019-06-01 | XMS | Encounter Summary ---
Demographics + + + | Address | [address] | | | [place] [address] | + + + | Home Phone [...] [place], [place] | | | | | [address] | | + + + + + | Ellie Vang | ECON | Unknown | | + + + + + Care Team Providers + +------+ + | Care Sulfuric Acid Plant Operator Name | Role | Phone [...] 2015 | | Preventive at [facility] | MD [address] | | | | | [address] | Ave [place], [place] | | | | | Mailcode: CH9A | [address] | | | | | [facility] | [phone] | | | | | and Healing, | | | | | | Building [address] | | | | | | [place], [place] | | | | | | [address] | | | | | | [phone] | | | +--------+ + + + [...] Rd | | | | | | [place], [place] | | | | | | [address] | | | | | | [phone] | | | | | | | | +--------+ + + + + | 06/24/ | Surgery | Surgery | Chilo, | OPEN VENTRAL HERNIA | | 2018 | | | MD [address] | REPAIR WITH | | | | | [address] | BIOLOGICAL MESH | | | | | [place], [place] | | | | | | [address] | | | | | | [phone] | | | | | | | | +--------+ + + + + | 06/30/ | Office | Cardiology | Randell Franks, | | | 2019 | Visit | | MD [address] | | | | | | Ave [place], [place] | | | | | | [address] | | | | | | [phone] | | | | | | | | +--------+ + + + + documented as of this encounter Visit Diagnoses Not on filedocumented in this encounter"
--- OUTSIDE RECORDS SUMMARY | ~2019-06-01 | XMS | Encounter Summary ---
Demographics + + + | Address | [address] | | | [place] [address] | + + + | Home Phone [...] Team Providers + +------+ + | Care Medication Tech Name | Role | Phone | + +------+ + | Kenyatta Cardenas MD | PCP | | + +------+ + Encounter Details +--------+ + + + + | Date | Type | Department | Care Team | Description | +--------+ + + + + | 03/02/ | Director Sports | Digestive Health | Keren Allen, | | | 2019 | | Center at [facility] [address] | AGACNP [address] | | | | | [address] | [place] [facility] [place] | | | | | Mailcode: [place] | [address] | | | | | for Health and | | | | | | [facility] 2 | | | | | | [place], [place] | | | | | | [address] | | | | | | | [...] Rd | | | | | | [place] | | | | | | [address] | | | | | | [phone] | | | | | | | | +--------+ + + + + | 06/24/ | Surgery | Surgery | Chilo | OPEN VENTRAL HERNIA | | 2019 | | | MD [address] | REPAIR WITH | | | | | [address] | BIOLOGICAL MESH | | | | | [place], [place] | | | | | | [address] | | | | | | [phone] | | | | | | | | +--------+ + + + + | 06/30/ | Office | Cardiology | Randell Franks, | | | 2019 | Visit | | [address] | | | | | | [place] | | | | | | [address] | | | | | | [phone] | | | | | | | | +--------+ + + + + documented as of this encounter Visit Diagnoses Not on filedocumented in this encounter"
--- OUTSIDE RECORDS SUMMARY | ~2019-06-01 | XMS | Encounter Summary ---
Demographics + + + | Address | [address] | | | [place] [address] | + + + | Home Phone [...] [place], [place] | | | | | [address] | | + + + + + | Ellie Vang | ECON | Unknown | | + + + + + Care Team Providers + +------+ + | Care Enrichment Specialist Name | Role | Phone | + +------+ + | Fadi Goodrich DO | PCP | | + +------+ + Encounter Details +--------+ + + + + | Date | Type | Department | Care Team | Description | +--------+ + + + + | 12/29/ | Abstract | Digestive Health | Hernandez Brian, | | | 2012 | | Center at [facility] [address] | MD [address] | | | | | [address] | [facility] | | | | | Mailcode: Center | [place], [place] | | | | | [facility] and | [address] | | | | | [facility], [facility] 2 | [phone] | | | | | [place], [place] | | | | | | [address] | | | | | | [phone] | | | +--------+ + + + [...] Rd | | | | | | [place], [place] | | | | | | [address] | | | | | | [phone] | | | | | | | | +--------+ + + + + | 06/24/ | Surgery | Surgery | Chilo, | OPEN VENTRAL HERNIA | | 2018 | | | MD [address] | REPAIR WITH | | | | | [address] | BIOLOGICAL MESH | | | | | [facility] [place] | | | | | | [address] | | | | | | [phone] | | | | | | | | +--------+ + + + + | 06/30/ | Office | Cardiology | Randell Franks, | | | 2018 | Visit | | [address] | | | | | | [place] [facility] [place] | | | | | | [address] | | | | | | [phone] | | | | | | | | +--------+ + + + + documented as of this encounter Visit Diagnoses Not on filedocumented in this encounter"
--- OUTSIDE RECORDS SUMMARY | ~2019-06-01 | XMS | Encounter Summary ---
Demographics + + + | Address | [address] | | | [place] [address] | + + + | Home Phone [...] [place], [place] | | | | | [address] | | + + + + + | Ellie Vang | ECON | Unknown | | + + + + + Care Team Providers + +------+ + | Care Shearing Shed Hand Name | Role | Phone [...] | | | Procedures | | Rd [place], | | | | | [place] M[place] | | [place] | | | | | INITIAL | | [address] | | | | | ASSESSMNT | | | | | | | X15MIN [place] | | | | | | [...] | 2012 | Visit | Center at [facility] [address] | [address] | mellitus (HCC) | | | | [address] | [address] | (Primary Dx); Morbid | | | | Mailcode: Center | [place], [place] | obesity (HCC) | | | | for Health and | [address] | | | | | Healing, [place] [address] | | | | | | [place], [place] | | | | | | [address] | | | | | | [phone] | | | +--------+---------+ + + + [...] PDTNutrition appointment, -try keeping food logs online: -www.[employer] -[employer] -Aim for 2062-7596 calories a day -Increase physical activity -try [...] appropriate portions. Denies any binge eating. Weight guide changer the past year: > 100 lb [...] see an RD for 2 years in [place] but insurance quit paying for it. Up [...] 1000/d--a more appropriate long-term range would be 2679-7381/day. Inadequat e calcium intake; did not address [...] w/ meals & snacks 2. Aim for 7444-0032 kcal/d 3. Keep food logs (at least [...] needed. Olga Lidia Montanez RD, LD Pager [phone] documented in this en counter Plan of [...] Rd | | | | | | [place], [place] | | | | | | [address] | | | | | | [phone] | | | | | | | | +--------+ + + + + | 06/24/ | Surgery | Surgery | Chilo, | OPEN VENTRAL HERNIA | | 2018 | | | MD Jorje [address] | REPAIR WITH | | | | | [address] | BIOLOGICAL MESH | | | | | [facility] [place] | | | | | | [address] | | | | | | [phone] | | | | | | | | +--------+ + + + + | 06/30/ | Office | Cardiology | Randell Franks, | | | 2018 | Visit | | [address] | | | | | | [place], [place] | | | | | | [address] | | | | | | [phone] | | | | | | | | +--------+ + + + + documented as of this encounter Procedures + +--------+ + + + | Procedure Name | Priori | Date/Time | Associated Diagnosis | Comments | | | ty | | | | + +--------+ + + + | CO MNT INITIAL | Routin | 04/14/2013 | [...]
--- OUTSIDE RECORDS SUMMARY | ~2019-06-01 | XMS | Encounter Summary ---
Demographics + + + | Address | [address] | | | [place] [address] | + + + | Home Phone [...] [place], [place] | | | | | [address] | | + + + + + | Ellie Vang | ECON | Unknown | | + + + + + Care Team Providers + +------+ + | Care Washateria Attendant Name | Role | Phone | + +------+ + PCP | Unavailable | + +------+ + Encounter Details +--------+ + + + + | Date | Type | Department | Care Team | Description | +--------+ + + + + | 05/13/ | Results | | Other, Faculty | | | 1992 | Only | | [phone] | | +--------+ + + + + [...] Rd | | | | | | [place], [place] | | | | | | [address] | | | | | | [phone] | | | | | | | | +--------+ + + + + | 06/24/ | Surgery | Surgery | Chilo, | OPEN VENTRAL HERNIA | | 2018 | | | MD Jorje [address] | REPAIR WITH | | | | | [address] | BIOLOGICAL MESH | | | | | [place], [place] | | | | | | [address] | | | | | | [phone] | | | | | | | | +--------+ + + + + | 06/30/ | Office | Cardiology | Randell Franks, | | | 2018 | Visit | | MD [address] | | | | | | [place], [place] | | | | | | [address] | | | | | | [phone] | | | | | | | [...]
--- OUTSIDE RECORDS SUMMARY | ~2019-06-01 | XMS | Encounter Summary ---
Demographics + + + | Address | [address] | | | [place] [address] | + + + | Home Phone [...] [place], [place] | | | | | [address] | | + + + + + | Ellie Vang | ECON | Unknown | | + + + + + Care Team Providers + +------+ + | Care Individualized Education Plan Aide Name | Role | Phone | [...] | | 2013 | | Center at [facility] [address] | PHARMACY PICKING TECH [address] | | | | | [address] | [facility] | | | | | Mailcode: Center | [place], [place] | | | | | for Health and | [address] | | | | | [facility] | [phone] | | | | | [place], [place] | | | | | | [address] | | | | | | [phone] | | | +--------+ + + + [...] Acute Care | Cihlo, | | | 2019 | Encounter | | MD [address]ond [address] | | | | | | [address] | | | | | | [place], [place] | | | | | | [address] | | | | | | [phone] | | | | | | | | +--------+ + + + + | 06/24/ | Surgery | Surgery | Chilo, | OPEN VENTRAL HERNIA | | 2019 | | | MD [address] | REPAIR WITH | | | | | [address] | BIOLOGICAL MESH | | | | | [place], [place] | | | | | | [address] | | | | | | [phone] | | | | | | | | +--------+ + + + + | 06/30/ | Office | Cardiology | Randell Franks, | | | 2019 | Visit | | MD [address] | | | | | | [place], [place] | | | | | | [address] | | | | | | [phone] | | | | | | | | +--------+ + + + + documented as of this encounter Visit Diagnoses Not on filedocumented in this encounter"
--- OUTSIDE RECORDS SUMMARY | ~2019-06-01 | XMS | Encounter Summary ---
Demographics + + + | Address | [address] | | | [place] [address] | + + + | Home Phone [...] [place], [place] | | | | | [address] | | + + + + + | Ellie Vang | ECON | Unknown | | + + + + + Care Team Providers + +------+ + | Care Tester Operator Helper Name | Role | Phone [...] + | 03/03/ | Documentati | [facility] | Lab, Gi Procedure | Medical Records | | 2019 | on | [address] | | Review | | | | [address] [place] Mailcode: | | | | | | OC2L [facility] | | | | | | Health and Healing, | | | | | | Building [address] | | | | | | [place], [place] | | | | | | [address] | | | | | | [phone] | | | +--------+ + + + [...] Rd | | | | | | [place], [place] | | | | | | [address] | | | | | | [phone] | | | | | | | | +--------+ + + + + | 06/24/ | Surgery | Surgery | Chilo, | OPEN VENTRAL HERNIA | | 2018 | | | MD Jorje [address] | REPAIR WITH | | | | | [address] | BIOLOGICAL MESH | | | | | [place], [place] | | | | | | [address] | | | | | | [phone] | | | | | | | | +--------+ + + + + | 06/30/ | Office | Cardiology | Randell Franks, | | | 2018 | Visit | | [address] | | | | | | [place], [place] | | | | | | [address] | | | | | | [phone] | | | | | | | | +--------+ + + + + documented as of this encounter Visit Diagnoses Not on filedocumented in this encounter"
--- OUTSIDE RECORDS SUMMARY | ~2019-06-01 | XMS | Encounter Summary ---
Demographics + + + | Address | [address] | | | [place] [address] | + + + | Home Phone [...] [place], [place] | | | | | [address] | | + + + + + | Ellie Vang | ECON | Unknown | | + + + + + Care Team Providers + +------+ + | Care Feather Cutting Machine Feeder Name | Role | Phone | [...] | LAPAROSCOPIC | | 2013 | | [facility] | [address] | CHOLECYSTECOMY WITH | | | | Admitting Desk | Clarence [address] [place], | INTRA-OP | | | | Located on the | [place] [address] | CHOLANGIOGRAM | | | | floor [address] | [phone] | | | | | [address] | | | | | | [place], [place] | | | | | | [address] | | | +--------+---------+ + + + [...] resident s note. PRADIP STARR MD [facility] [address] [facility] [place] [address] orrest, Maryam Yu MD - 1:05 PM PDT [facility] DEPARTMENT OF SURGERY EMERGENCY GENERAL SURGERY [...] presented to the [facility] ED ([place], [place]) on 02/06/14, with a week hi story of RUQ abdominal pain that radiates to her back. There, she was found to have leukocyt osis and multiple tiny, mobile stones, + sonographic Peterson's sign on abdominal ultrasound, concerning for acute cholecystitis. She was givenIV antibiotics (cipro, flagyl) and pain med s, then transferred to [facility] by [facility] for further care. Ms. Romero [...] up with Trauma Emergency General Surgery at [facility] In 4 weeks. (follow up in 2-4 weeks ) Contact information [address] [facility] Mailcode: L223a [facility] [place] [address] Thank you for the [...] resident s note. PRADIP STARR MD [facility] [address] [place] [id number] orrest, Maryam Yu MD - 5:17 AM PDT [facility] [place] DEPARTMENT OF SURGERY EMERGENCY GENERAL SURGERY Division [...] tolerated MARYAM RHODES MD PGY-1, General Surgery [phone] pager number [facility] [place] A [address] [place] [facility] [place] [address] documented in this encoun ter Plan of [...] [address] | | | | | | [address] | | | | | | [place], [place] | | | | | | [address] | | | | | | [phone] | | | | | | | | +--------+ + + + + | 06/24/ | Surgery | Surgery | Chilo, | OPEN VENTRAL HERNIA | | 2018 | | | MD Jorje [address] | REPAIR WITH | | | | | [address] | BIOLOGICAL MESH | | | | | [place], [place] | | | | | | [address] | | | | | | [phone] | | | | | | | | +--------+ + + + + | 06/30/ | Office | Cardiology | Randell Franks, | | | 2018 | Visit Analisa Hauser MD [address] | | | | | | [place], [place] | | | | | | [address] | | | | | | [phone] | | | | | | | [...] + + | Performing | Address | City[facility] | Phone Number | | Organization | | | | + + + + + | [facility] | [address] | [place], [place] | | | JUSTINE DAWN OF JAKY | [address] | [address] | | | TESTS | | | [...] YAKOVAM | [address] | [place], [place] | | | JUSTINE DAWN [address] [place]AKY | [facility] | [address] | | | TESTS | | | [...] | 60 - 99 mg/dL | [facility] - | | | GLUCOSE, | [...] AMES | [address] | [place], [place] | | | [place] POINT OF CARE | [address] | [address] | | | TESTS | | | [...] KWAKU | [address] | [place], [place] | | | JUSTINE DAWN OF JAKY | [address] | [address] | | | TESTS | | | [...] [facility] | [address] | [place] [address] | | | SERVICES, | [address] [...] | + + + + + | [employer] | [address] | [place] [address] | | | SERVICES, | [address] [...] MARQUAM | [address] | [place], [place] | | | JUSTINE DAWN OF CARE | [address] | [address] | | | TESTS | | | [...] [facility] | [address] | [place] [address] | | | SERVICES, CORE | [address] [...] [facility] | [address] | [place] [address] | | | SERVICES, CORE | PARK [...] [facility] | [address] | [place] [address] | | | SERVICES, CORE | PARK [...] | + + + + + | [facility] | [address] [facility] | [place] [address] | | | SERVICES, LYDIA | [address]ENCE [...] [facility] | [address] | [place] [address] | | | SERVICES, CORE | CLARENCE [...] | [facility] | [address] | [place], [place] | | | JUSTINE DAWN OF JAKY | [facility] | [address] | | | TESTS | | | [...] pattern. | | | | | | [employer] | | | | | | sections [...] | + + + + + | [facility] | [address] | [place] [address] | | | PATHOLOGY | [address] [...]
--- OUTSIDE RECORDS SUMMARY | ~2019-06-01 | XMS | Encounter Summary ---
Demographics + + + | Address | [address] | | | [place] [address] | + + + | Home Phone [...] + | Katalina Padilla | ECON | [address] | | | | | [place], [place] | | | | | [address] | | + + + + + | Ellie Vang | ECON | Unknown | | + + + + + Care Team Providers + +------+ + | Care Machine Heel Sprayer Name | Role | Phone | [...] | [facility] | [facility] | | | | | [address] | [place], [place] | | | | | Mail Code: OC8PM | [address] | | | | | [facility] | [phone] | | | | | and Healing, | | | | | | [address] | | | | | | [place], [place] | | | | | | [address] | | | | | | [phone] | | | +--------+ + + + [...] | | | | | | [place] | | | | | | [address] | | | | | | [phone] | | | | | | | | +--------+ + + + + | 06/24/ | Surgery | Surgery | Chilo | OPEN VENTRAL HERNIA | | 2018 | | | MD [address] | REPAIR WITH | | | | | [address] | BIOLOGICAL MESH | | | | | [place], [place] | | | | | | [address] | | | | | | [phone] | | | | | | | | +--------+ + + + + | 06/30/ | Office | Cardiology | Randell Franks, | | | 2019 | Visit | | [address] | | | | | | [place], [place] | | | | | | [address] | | | | | | [phone] | | | | | | | | +--------+ + + + + documented as of this encounter Visit Diagnoses Not on filedocumented in this encounter"
--- OUTSIDE RECORDS SUMMARY | ~2019-06-01 | XMS | Encounter Summary ---
Demographics + + + | Address | [address] | | | [place] [address] | + + + | Home Phone [...] [place], [place] | | | | | [address] | | + + + + + | Ellie Vang | ECON | Unknown | | + + + + + Care Team Providers + +------+ + | Care Material Handling Technician Name | Role | Phone | [...] 2018 | | Center at [facility] [address] | ACNP [address] | | | | | [address] | [place], [place] | | | | | Mailcode: [place] | [address] | | | | | for Health and | [phone] | | | | | [address] [address] | | | | | | [place], [place] | | | | | | [address] | | | | | | [phone] | | | +--------+ + + + [...] Rd | | | | | | [place], [place] | | | | | | [address] | | | | | | [phone] | | | | | | | | +--------+ + + + + | 06/24/ | Surgery | Surgery | Chilo | OPEN VENTRAL HERNIA | | 2018 | | | Jorje, MD [address] | REPAIR WITH | | | | | [address] | BIOLOGICAL MESH | | | | | [place], [place] | | | | | | [address] | | | | | | [phone] | | | | | | | | +--------+ + + + + | 06/30/ | Office | Cardiology | Randell Franks, | | | 2019 | Visit | | [address] | | | | | | [place], [place] | | | | | | [address] | | | | | | [phone] | | | | | | | | +--------+ + + + + documented as of this encounter Visit Diagnoses Not on filedocumented in this encounter"
--- OUTSIDE RECORDS SUMMARY | ~2019-06-01 | XMS | Encounter Summary ---
Demographics + + + | Address | [address] | | | [place] [address] | + + + | Home Phone [...] Providers + +------+ + | Care Customs Agent Name | Role | Phone | [...] from Patient; | | 2017 | | [place] [address] | MD [address] | Postoperative | | | | Ave Mailcode: CH4S | [place], [place] | infection | | | | [facility] | [address] | | | | | and Healing, | [phone] | | | | | [place] [address] [facility] | | | | | | [place], [place] | | | | | | [address] | | | | | | [phone] | | | +--------+ + + + [...] Rd | | | | | | [place], [place] | | | | | | [address] | | | | | | [phone] | | | | | | | | +--------+ + + + + | 06/24/ | Surgery | Surgery | Chilo, | OPEN VENTRAL HERNIA | | 2018 | | | MD Jorje [address] | REPAIR WITH | | | | | [address] | BIOLOGICAL MESH | | | | | [place], [place] | | | | | | [address] | | | | | | [phone] | | | | | | | | +--------+ + + + + | 06/30/ | Office | Cardiology | Randell Franks, | | | 2018 | Visit | | [address] | | | | | | [place], [place] | | | | | | [address] | | | | | | [phone] | | | | | | | | +--------+ + + + + documented as of this encounter Visit Diagnoses Not on filedocumented in this encounter"
--- OUTSIDE RECORDS SUMMARY | ~2019-06-01 | XMS | Encounter Summary ---
Demographics + + + | Address | [address] | | | [place] [address] | + + + | Home Phone [...] + | Katalina Padilla | ECON | [address] | | | | | [place], [place] | | | | | [address] | | + + + + + | Ellie Vang | ECON | Unknown | | + + + + + Care Team Providers + +------+ + | Care Mobile Home Set Up Person Name | Role | Phone | [...] | | 2016 | | Preventive at [facility] | [address] | ([place]) | | | | [address] | Ave [place], [place] | | | | | Mailcode: Mihaela | [address] | | | | | [facility] | [phone] | | | | | and Erick, | | | | | | [address] | | | | | | [place], [place] | | | | | | [address] | | | | | | [phone] | | | +--------+ + + + [...] [place] | | | | | | [address] | | | | | | [phone] | | | | | | | | +--------+ + + + + | 06/24/ | Surgery | Surgery | Chilo | OPEN VENTRAL HERNIA | | 2018 | | | MD [address] | REPAIR WITH | | | | | [address] | BIOLOGICAL MESH | | | | | [place] | | | | | | [address] | | | | | | [phone] | | | | | | | | +--------+ + + + + | 06/30/ | Office | Cardiology | Randell Franks, | | | 2019 | Visit | | MD [address] | | | | | | [place], [place] | | | | | | [address] | | | | | | [phone] | | | | | | | | +--------+ + + + + documented as of this encounter Visit Diagnoses Not on filedocumented in this encounter"
--- OUTSIDE RECORDS SUMMARY | ~2019-06-01 | XMS | Encounter Summary ---
Demographics + + + | Address | [address] | | | [place] [address] | + + + | Home Phone [...] [place], [place] | | | | | [address] | | + + + + + | Ellie Vang | ECON | Unknown | | + + + + + Care Team Providers + +------+ + | Care Hr Shared Services Consultant Name | Role | Phone | [...] | Pain | Diagnoses | Analisa Georges Chronic Disease Manager Psych | | | | Management | Morbid | DANIELLE BrunerP | [address] | | | | | obesity with | [address] | | | | | BMI of [address] | Mailcode: | | | | | and over, | [place], [place] | [facility] | | | | | adult (HCC) | [address] | for Health | | | | | Procedures | Phone: | and Healing, | | | | | CONSULT TO | [phone] | Building 1, | | | | | PAIN | Fax: | 15th Floor | | | | | MANAGEMENT | [phone] | [place], [place] | | | | | [place] | | [address] | | | | | PSYCHIATRIC | | Phone: | | | | | DIAGNOSTIC | | [phone] | | | | | EVAL, NO MED | | Fax: | | | | | [facility] [place] | | [phone] | | | | | PSYCH TSTNG [...] | Bariatri Surg | | | with ORCHESTRA CONDUCTOR | | hypertension | [address] | [address] | | | | | Right | [address] | [address] | | | | | heart | [place], [place] | Mailcode: | | | | | failure | [address] | Center for | | | | | ([facility]) Type | Phone: | Health and | | | | | 2 diabetes | [phone] | Healing, | | | | | mellitus | Fax: | Building 2 | | | | | without | [phone] | [place], [place] | | | | | complication | | [address] | | | | | , with | | Phone: | | | | | long-term | | [phone] | | | | | current use | | Fax: | | | | | of insulin | | [phone] | | | | | ([facility]) | | | | | [...] | | [address] | Ave [place], [place] | adult ([facility]) (Primary | | | | Mailcode: Center | [address] | Dx); Chronic | | | | for Health and | | diastolic heart | | | | Healing, Building 2 | | failure ([facility]); | | | | [place], [place] | | Immobility; Severe | | | | [address] | | muscle | | | | [...] | | | | | ([facility]); | | | | | [...] encounter Patient Instructions Patient Instructions Shereen Georges, [facility] - 02/02/2017 9:00 AM PDTPlan: The [...] to your private appointme nt with the channel rebuilder. These classes will be scheduled apporoximately 1 month apart to allow time for you to put the teaching into action. Please call [phone] + Labs needed: Pre op: drug screen [...] are done + EKG: Please Have your antique automobiles repairer do the eval and send it to us + Pre-op Psychological Evaluation: Your referral is at [facility], The Pain Management Office will call you [...] be safely completed. + Sign up for EthosGen so that we can communicate easily back and forth Once the above list is completed and copies have been received by our office, we will submi t for insurance authorization then schedule with the surgeon. KAIN De Dios DNP, TRANSMISSION CALIBRATION ENGINEER Nurse Practitioner for Bariatric Surgery [facility] | [address] | [place], [place] | [address] | documented in this encounter Progress Notes Shereen Georges ACNP - 02/02/2017 9:00 AM PDTFormatting of this note might be different f rom the original. BARIATRIC INITIAL VISIT Provider: Shereen Pinto DNP, KAIN, TRANSMISSION CALIBRATION ENGINEER Referring Provider: Fadi Goodrich DO Reason for [...] t loss. Consults: Cardiology: Dr. Edson [facility] Physician General Internal Medicine: Nickie : [facility] Paula But comes to magen Thoroughbred Horse Farm Manager at [facility]: Dr. Zhong for weight loss medication Christian or cultural reason you would refuse blood [...] once daily., Disp : , Rfl: CALCIUM CRB&BBC-[id number]-GENIS ORAL, Take 2 tablets by mouth two [...] rhinitis Anemia Anxiety Bipolar disorder ([facility]) Chronic wound infection of abdomen from 2010 Cough Depression Diverticulitis of colon Dizziness Glaucoma Heart burn Hemorrhoids Hernia of abdominal wall Incisional hernia, incarcerated 2012 Insomnia Irregular periods Kidney stone Leaking of urine Leg sore Lymphedema Morbid obesity with body mass index of 70 and over in adult ([facility]) Myalgia and myositis Nausea Neck pain Numbness Osteoarthritis of knee Palpitations Pneumonia Shortness of breath Staphylococcal infection Stroke ([facility]) TIA (transient ischemic attack) due to Bromocriptine Tinea corporis UTI (urinary tract infection) Past Surgical History Procedure Laterality Date Tonsillectomy and adenoidectomy Appendectomy, open 2010 Umbilical hernia repair 2010 Treatment of ankle fracture with screws remaining Incision and drainage of wound abscess x2 midline transverse wound s/p open appendectomy 2010 Ventral hernia repair 10/2012 Dr. Andie Brian Incisional hernia repair 03/01/2015 [facility]/ Dr. Cantu. Primary fascial closure and scar [...] History Narrative Updated 11/09/15 She lives in [place] with her mother and her sister (also her caregiver) lives in an [facility] below. She has 2 grandchildren (age 4 and 7) who live with her daughter and son-in-law Her boyfriend lives in [place] Family History Problem Relation Heart Attack Father [...] extre mity edema, hypertension, hyperlipidemia. Denies CHF, GA, ischemic heart disease, or pulmon nikki hypertension. [...] years without success. [facility] to control [...] management, and was referred as well to ceramics technician. Plan: Request that her antique automobiles repairer clear her, and make recommendations 3. Mammogram: [...] to your private appointme nt with the channel rebuilder. These classes will be scheduled apporoximately 1 month apart to allow time for you to put the teaching into action. Please call [phone] + Labs needed: lipids, CBC, CMP, TSH, [...] are done + EKG: Please Have your antique automobiles repairer do the eval and send it to us + Pre-op Psychological Evaluation: Your referral is at [facility], The Pain Management Office will call you [...] be safely completed. + Sign up for EthosGen so that we can communicate easily back and forth Once the above list is completed and copies have been received by our office, we will submi t for insurance authorization then schedule with the surgeon. KAIN De Dios DNP, TRANSMISSION CALIBRATION ENGINEER Nurse Practitioner for Bariatric Surgery [facility] | [address] | [place], [place] | [address] | documented in this encounter Plan of [...] Rd | | | | | | [place], [place] | | | | | | [address] | | | | | | [phone] | | | | | | | | +--------+ + + + + | 06/24/ | Surgery | Surgery | Chilo, | OPEN VENTRAL HERNIA | | 2019 | | | MD Jorje [address] | REPAIR WITH | | | | | [address] | BIOLOGICAL MESH | | | | | [place], [place] | | | | | | [address] | | | | | | [phone] | | | | | | | | +--------+ + + + + | 06/30/ | Office | Cardiology | Randell Zhong, | | | 2018 | Visit | | [address] | | | | | | [place], [place] | | | | | | [address] | | | | | | [phone] | | | | | | | [...]
--- OUTSIDE RECORDS SUMMARY | ~2019-06-01 | XMS | Encounter Summary ---
Demographics + + + | Address | [address] | | | [place] [address] | + + + | Home Phone [...] [place], [place] | | | | | [address] | | + + + + + | Ellie Vang | ECON | Unknown | | + + + + + Care Team Providers + +------+ + | Care Orthotic And Prosthetic Technician Name | Role | Phone | [...] | | 2019 | | Preventive at [facility] | [address] | stop any | | | | [address] | Ave [place], [place] | medications? ) | | | | Mailcode: Mihaela | [address] | | | | | [facility] | [phone] | | | | | and Healing, | | | | | | Building 1 | | | | | | [place], [place] | | | | | | [address] | | | | | | [phone] | | | +--------+ + + + [...] Rd | | | | | | [place], [place] | | | | | | [address] | | | | | | [phone] | | | | | | | | +--------+ + + + + | 06/24/ | Surgery | Surgery | Chilo, | OPEN VENTRAL HERNIA | | 2018 | | | MD Jorje [address] | REPAIR WITH | | | | | [address] | BIOLOGICAL MESH | | | | | [place], [place] | | | | | | [address] | | | | | | [phone] | | | | | | | | +--------+ + + + + | 06/30/ | Office | Cardiology | Randell Franks, | | | 2018 | Visit | | [address] | | | | | | [place], [place] | | | | | | [address] | | | | | | [phone] | | | | | | | | +--------+ + + + + documented as of this encounter Visit Diagnoses Not on filedocumented in this encounter"
--- OUTSIDE RECORDS SUMMARY | ~2019-06-01 | XMS | Encounter Summary ---
Demographics + + + | Address | [address] | | | [place] [address] | + + + | Home Phone [...] + | Katalina Padilla | ECON | [address] | | | | | [place], [place] | | | | | [address] | | + + + + + | Ellie Vang | ECON | Unknown | | + + + + + Care Team Providers + +------+ + | Care Hot Tamale Worker Name | Role | Phone | [...] | | 2015 | | Center at [facility] [address] | [address] | | | | | [address] | Lesly Gutiérrez [employer], | | | | | Mailcode: [place] | [place] [address] | | | | | for Health and | | | | | | [facility] [place] [address] | | | | | | [place], [place] | | | | | | [address] | | | | | | [phone] | | | +--------+ + + + [...] [place] | | | | | | [address] | | | | | | [phone] | | | | | | | | +--------+ + + + + | 06/24/ | Surgery | Surgery | Chilo | OPEN VENTRAL HERNIA | | 2018 | | | MD [address] | REPAIR WITH | | | | | [address] | BIOLOGICAL MESH | | | | | [place], [place] | | | | | | [address] | | | | | | [phone] | | | | | | | | +--------+ + + + + | 06/30/ | Office | Cardiology | Randell Franks, | | | 2019 | Visit | | [address] | | | | | | [place], [place] | | | | | | [address] | | | | | | [phone] | | | | | | | | +--------+ + + + + documented as of this encounter Visit Diagnoses Not on filedocumented in this encounter"
--- OUTSIDE RECORDS SUMMARY | ~2019-06-01 | XMS | Encounter Summary ---
Demographics + + + | Address | [address] | | | [place] [address] | + + + | Home Phone [...] [place], [place] | | | | | [address] | | + + + + + | Ellie Vang | ECON | Unknown | | + + + + + Care Team Providers + +------+ + | Care Slurry Mixer Name | Role | Phone | [...] [address] | | | | | [place] at [facility] [address] | [address] [place], [place] | | | | | [address] [facility] | [address] | | | | | Mailcode: Center | [phone] | | | | | for Health and | | | | | | [facility] 2 | | | | | | [place], [place] | | | | | | [address] | | | | | | [phone] | | | +--------+ + + + [...] Rd | | | | | | [place], [place] | | | | | | [address] | | | | | | [phone] | | | | | | | | +--------+ + + + + | 06/24/ | Surgery | Surgery | Chilo, | OPEN VENTRAL HERNIA | | 2019 | | | MD Jorje [address] | REPAIR WITH | | | | | [address] | BIOLOGICAL MESH | | | | | [place], [place] | | | | | | [address] | | | | | | [phone] | | | | | | | | +--------+ + + + + | 06/30/ | Office | Cardiology | Randell Franks, | | | 2019 | Visit | | MD [address] | | | | | | [place], [place] | | | | | | [address] | | | | | | [phone] | | | | | | | | +--------+ + + + + documented as of this encounter Visit Diagnoses Not on filedocumented in this encounter"
--- OUTSIDE RECORDS SUMMARY | ~2019-06-01 | XMS | Encounter Summary ---
Demographics + + + | Address | [address] | | | [place] [address] | + + + | Home Phone [...] [place], [place] | | | | | [address] | | + + + + + | Ellie Vang | ECON | Unknown | | + + + + + Care Team Providers + +------+ + | Care Culinary Arts Instructor Name | Role | Phone | [...] | | Surgery | Diagnoses | | Chinle, | | | | | Ventral | Chilo, | MD Jones | | | | | hernia | MD Jones | [address] | | | | | without | [address] | [place] | | | | | obstruction | [address] | Rd [place], | | | | | or gangrene | Rd | [place] | | | | | Procedures | [place], [place] | [address] | | | | | REQUEST TO | [address] | Phone: | | | | | SURGERY | Phone: | [phone] | | | | | LEAD SOFTWARE ARCHITECT | [phone] | Fax: | | | | | | Fax: | [phone] | | | | | | [phone] | | +--------+--------+ + + + + [...] 2019 | Visit | Center at [address] | MD Jones [address] | without obstruction | | | | [address] | [facility] [address] | or gangrene (Primary | | | | Mailcode: Center | [place], [place] | Dx) | | | | for Health and | [address] | | | | | Healing, Building 2 | [phone] | | | | | [place], [place] | | | | | | [address] | | | | | | [phone] | | | +--------+---------+ + + + [...] (1?2 cup) 6.5 Avocado 1?2 fruit 2.1 [place] sprouts, cooked 125 mL (1?2 cup) 2.0 Figs, dried 60 mL (1?4 cup) 1.9 Lincoln 1 medium 1.8 Sweet Potato, cooked, without [...] 1.3 Eggplant 125 mL (1?2 cup) 1.3 [place], with skin 1 medium 1.0-1.3 Peas, green, cooked 125 mL (1?2 cup) 0.8-1.3 Carrot, cooked John 125 mL (1?2 cup) 1?2 fruit 1.1-1.2 0.7-1.1 Grapefruit 1?2 fruit 0.7-1.1 Prunes, dried 3 1.1 [place]don, with skin 2 fruits 1.1 Apricots, dried [...] Bread, rye 35 g (1 slice) 0.6-1.0 [place] bread crackers 3 crackers 0.9 Raisin bran [...] of Soluble Fiber [email or web address] PATIENT SURGERY INFORMATION [facility] General Surgery Office Toll-free: ext [phone] [...] be completed [facility] [address]. This call appointment will be scheduled with you by a home health aide caregiver. You will receive a ca ll within [...] ease call the General Surgery Office at [phone] for [id number]. Check-in on the day of surgery is at the Admitting Department located on the 9th floor of [facility]. DIET Nothing to eat or [...] the surgery. Please see the list below, [facility] has a list of products that [...] contact our office . Products Containing Aspirin Yuki-Irving, Anacin, Anexsia with Codeine, Andynos, Aspirin, Aspirin suppositories, Ascrip tin, Aspergum, Axotal, B-A-C, Baby Aspirin, Lucila, BC Powder, Bexophene, Buffaprin, Bufferin , Buffinol, Cama-Arthritis Strength, Congespirin, [place], Coricidin, Damason, Darvon, Dristan, Kalani-Gesic, Digel, Dolprin #3 Tablets, Donatab, Doxaphene, Duragesic, Easprin, Ecotrin, Emag rin Forte, Emiprin, Emprazil, Equagesic, Equazine M, Excedrin, Fiogesic, Fiorgen PH, Fiorice t, Fiorinal, 4-Way Cold Tablet, Gemnisyn, Indocin, Liquprin, Lortab ASA, Magnaprin, Marnal, Meprobamate, Midol, Momentum, Norgesic, [place], Orphengesic, Pabalate, P-A-C, Percodan, Pre salin, Robaxasil, Roxiprin, Saleto, Salocol, SK-65 Compound, Sine-Aid, Sine-Off, [place], Supac, Talwin Compound, Trigesic, Tolectin, Traiminicin, Vanquish, ZORprin, Zomax Products Containing Ibuprofen Advil, Aleve, Haltran, Medipren, Midol, Motrin, Naproxyn, Nuprin, Rufen Herbal Medications Ephedra: discontinue 24 hours before surgery Garlic: discontinue 7 days prior to surgery Ginkgo: discontinue 36 hours prior to surgery Ginseng: discontinue 7 days prior to surgery Kava: discontinue 24 hours prior to surgery [place] s Wort: discontinue 5 days prior to surgery Valerian: discontinue several weeks prior to surgery Other Products Which May Promote Bleeding Vitamin E, Gingko Biloba, Marine Fatty Acids, [place]-3 Fish Oil Supplement PRE-OP BATHING/SHOWER INSTRUCTIONS with [facility] Bathe or shower the evening before [...] loss of tissue. Check out the free [place] Quit Line - The Quit Line is open 24 hours a day, seven days a we ek. The Quit Line is a telephone and web-based counseling service to help [place]ians quit us ing tobacco and nicotine products. .QUIT.NOW ( ) or www.quitnow.net/[place] PARKING Parking at the Hospital for patients and visitors is available in the [facility] Parking s tructure located across from the emergency department. Patient parking is available on level 1 and 3. Metered parking is available on the top level. Parking at [facility] is available in the building's parking structure. For additional parking options visit [email or web address]. TRANSPORTATION You will require transportation home on the day of discharge. Pain medications and physical activity restrictions may limit your ability to drive safely. CANCELLING YOUR PROCEDURE Please notify the general surgery office at [phone] as soon as possible should you nee [...] lost 100+ lbs! She last saw the [facility] team in 02/2019, at which time [...] plans to see an ENT and a natural resources manager for her symptoms in the near future. [...] Andie Brian Incisional hernia repair 03/01/2015 [facility]/ Dr. Cantu. Primary fascial closure and scar excision Lap gastric byp, and nilesh-en-y gastroenterostomy w/ nilesh limb 150 cm or less 8 [facility] Past Medical History: Diagnosis Date [...] file Gets together: Not on file Attends faith service: Not on file Active member of club or organization: Not on file Attends meetings of clubs or organizations: Not on file Relationship status: Not on file Other Topics Concern Not on file Social History Narrative Updated 11/09/15 She lives in [place] with her mother and her sister (also her caregiver) lives in an apa rtment/duplex below. She has 2 grandchildren (age 4 and 7) who live with her daughter and son-in-law Her boyfriend lives in [place] HFpEF, DM2, HTN, Sleep Apnea (unable to [...] program here and refer her to our clinical informatics specialist who also has expertise in [...] daily. BELBUCA 600 mcg buccal film CALCIUM CRB&JRB-Y4-NUM68-GENIS ORAL Take 2 tablets by mouth two [...] morbid obesity s/p laparoscopic anteocolic RYGB (03/01/2018); [facility] e this operation, she has lost [...] by Gadiel Yi . JONES TIWARI MD [facility] [address] Mailcode: [place] [address] I spent 31 minutes with [...] Rd | | | | | | [place], [place] | | | | | | [address] | | | | | | [phone] | | | | | | | | +--------+ + + + + | 06/24/ | Surgery | Surgery | Chilo, | OPEN VENTRAL HERNIA | | 2019 | | | MD Jones [address] | REPAIR WITH | | | | | [address] | BIOLOGICAL MESH | | | | | [place], [place] | | | | | | [address] | | | | | | [phone] | | | | | | | | +--------+ + + + + | 06/30/ | Office | Cardiology | Randell Franks, | | | 2019 | Visit | | [address] | | | | | | Ave [place], [place] | | | | | | [address] | | | | | | [phone] | | | | | | | | +--------+ + + + + documented as of this encounter Visit Diagnoses + + | Diagnosis | + + | Ventral hernia without obstruction or gangrene - Primary Ventral hernia, unspecified, | | without mention of obstruction or gangrene | + + documented in this encounter
--- OUTSIDE RECORDS SUMMARY | ~2019-06-01 | XMS | Encounter Summary ---
Demographics + + + | Address | [address] | | | [place] [address] | + + + | Home Phone [...] [place], [place] | | | | | [address] | | + + + + + | Ellie Vang | ECON | Unknown | | + + + + + Care Team Providers + +------+ + | Care Redevelopment Manager Name | Role | Phone | [...] | | 2 diabetes | JEAN, | [place], [place] | | | | | mellitus | [place] [address] | [address] | | | | | without | Phone: | Phone: | | | | | complication | [phone] | [phone] | | | | | (HCC) | Fax: | Fax: | | | | | Procedures | [phone] | [phone] | | | | | LA EST | | | | | | [...] | 2018 | Visit | Preventive at [facility] | [address] | mellitus without | | | | [address] | Ave [place], [place] | complication, with | | | | Mailcode: CH9A | [address] | long-term current | | | | [facility] | [phone] | use of insulin (HCC) | | | | and Healing, | | (Primary Dx); | | | | Building [address] | | Morbid obesity with | | | | [place], [place] | | BMI of 70 and over, | | | | [address] | | adult (HCC) | | | | [phone] | | | +--------+---------+ + + + [...] 04/14/2013 Priority: 3 Hypoventilation associated with obesity ([facility]) 06/16/2013 Priority: 4 AMARA (obstructive sleep apnea) 04/14/2013 Priority: 4 Overview Note: Cannot tolerate CPAP Severe Morbid obesity ([facility]), BMI 88 11/12/2012 Priority: 4 Overview Note: Lifetime max: 495 lbs Phentermine started Type 2 diabetes mellitus ([facility]) 04/14/2013 Priority: 5 Iron deficiency anemia due to chronic blood loss 11/11/2015 Priority: 6 Overview Note: Ferritin 18 on 10/2015 Hypoalbuminemia (no proteinuria, need to rule out synthetic, nutrition, loss) 6 Priority: 6 Hypothyroidism 08/28/2014 Priority: 8 Morbid obesity with BMI of 70 and over, adult ([facility]) 02/02/2017 Chronic diastolic heart failure (HCC) 02/02/2017 Immobility 02/02/2017 Severe muscle deconditioning 02/02/2017 Personal history of DVT (deep vein thrombosis) 02/02/2017 History of pulmonary embolism 02/02/2017 AMARA treated with BiPAP 02/02/2017 Benign essential HTN 02/02/2017 Diabetes mellitus type 2 without retinopathy ([facility]) 02/02/2017 Hyperlipidemia 02/02/2017 Ventral hernia without [...] exertion) 11/06/2015 Diabetes mellitus with insulin therapy ([facility]) 12/27/2014 Abdominal pain 02/07/2014 Migraine headache [...] 1 tablet by mouth once daily CALCIUM CRB&MLE-Y9-UYB15-GENIS ORAL Take 2 tablets by mouth two [...] jeart failure is manag ed by her cisco unified communications engineer and she was seen by the bariatric surgery group and is now back on tr [facility] for gastric bypass in the upcoming [...] is currently being managed well by her Yard Motor Operator with diuretics and main tenance of [...] management of her heart failure by her Yard Motor Operator 3) Check A1c, lipids 4) Await [...] | | | | | | [place], [place] | | | | | | [address] | | | | | | [phone] | | | | | | | | +--------+ + + + + | 06/24/ | Surgery | Surgery | Chilo | OPEN VENTRAL HERNIA | | 2018 | | | MD [address]ond [address] | REPAIR WITH | | | | | [address] | BIOLOGICAL MESH | | | | | [place], [place] | | | | | | [address] | | | | | | [phone] | | | | | | | | +--------+ + + + + | 06/30/ | Office | Cardiology | Randell Franks, | | | 2019 | Visit | | [address] | | | | | | [place], [place] | | | | | | [address] | | | | | | [phone] | | | | | | | [...] | + + + + + | [email or web address] | [address] | [place], [place] | | | SERVICES, LIPID | [address] | [address] | | + + + + + [...] [facility] | [address] | [place] [address] | | | SERVICES, SPECIAL | [address] | | | | IMM + COAG | | | | + + + + + documented in this encounter Visit Diagnoses + + | Diagnosis | + + | Type 2 diabetes mellitus without complication, with long-term current use of insulin | | ([facility]) - Primary | + + | Morbid obesity with BMI of 70 and over, adult ([facility]) | + + documented in this encounter
--- OUTSIDE RECORDS SUMMARY | ~2019-06-01 | XMS | Encounter Summary ---
Demographics + + + | Address | [address] | | | [place] [address] | + + + | Home Phone [...] [place], [place] | | | | | [address] | | + + + + + | Ellie Vang | ECON | Unknown | | + + + + + Care Team Providers + +------+ + | Care Mental Hygienist Name | Role | Phone | + [...] | | | | | | [place] [address] | | | +--------+ + + + [...] Rd | | | | | | [place], [place] | | | | | | [address] | | | | | | [phone] | | | | | | | | +--------+ + + + + | 06/24/ | Surgery | Surgery | Chilo, | OPEN VENTRAL HERNIA | | 2018 | | | MD Jorje [address] | REPAIR WITH | | | | | [address] | BIOLOGICAL MESH | | | | | [place], [place] | | | | | | [address] | | | | | | [phone] | | | | | | | | +--------+ + + + + | 06/30/ | Office | Cardiology | Randell Franks, | | | 2018 | Visit | | MD [address] | | | | | | Ave [place], [place] | | | | | | [address] | | | | | | [phone] | | | | | | | | +--------+ + + + + documented as of this encounter Visit Diagnoses Not on filedocumented in this encounter"
--- OUTSIDE RECORDS SUMMARY | ~2019-06-01 | XMS | Encounter Summary ---
Demographics + + + | Address | [address] | | | [place] [address] | + + + | Home Phone [...] [place], [place] | | | | | [address] | | + + + + + | Ellie Vang | ECON | Unknown | | + + + + + Care Team Providers + +------+ + | Care Front Office Associate Name | Role | Phone | [...] | | | 2012 | Event | [facility] | [address] | | | | | Admitting Desk | [address] | | | | | Located on the | [place], [place] | | | | | [facility] [address] | [address] | | | | | [address] | [phone] | | | | | [place], [place] | | | | | | [address] | | | +--------+ + + + [...] Rd | | | | | | [place], [place] | | | | | | [address] | | | | | | [phone] | | | | | | | | +--------+ + + + + | 06/24/ | Surgery | Surgery | Chilo, | OPEN VENTRAL HERNIA | | 2018 | | | MD Jorje [address] | REPAIR WITH | | | | | [address] | BIOLOGICAL MESH | | | | | [place], [place] | | | | | | [address] | | | | | | [phone] | | | | | | | | +--------+ + + + + | 06/30/ | Office | Cardiology | Randell Franks, | | | 2018 | Visit | | [address] | | | | | | [place], [place] | | | | | | [address] | | | | | | [phone] | | | | | | | [...]
--- OUTSIDE RECORDS SUMMARY | ~2019-06-01 | XMS | Encounter Summary ---
Demographics + + + | Address | [address] | | | [place] [address] | + + + | Home Phone [...] [place], [place] | | | | | [address] | | + + + + + | Ellie Vang | ECON | Unknown | | + + + + + Care Team Providers + +------+ + | Care Temporary Help Agency Referral Clerk Name | Role | Phone | + +------+ + | Fadi Goodrich DO | PCP | | + +------+ + Encounter Details +--------+ + + + + | Date | Type | Department | Care Team | Description | +--------+ + + + + | 08/22/ | Abstract | Cardiology | Randell Franks, | | | 2013 | | Preventive at [facility] | MD [address] | | | | | [address] | Ave [place], [place] | | | | | Mailcode: CH9A | [address] | | | | | [facility] | [phone] | | | | | and Healing, | | | | | | [address] | | | | | | [place], [place] | | | | | | [address] | | | | | | [phone] | | | +--------+ + + + [...] [address] | | | | | | [address] | | | | | | [place], [place] | | | | | | [address] | | | | | | [phone] | | | | | | | | +--------+ + + + + | 06/24/ | Surgery | Surgery | Chilo | OPEN VENTRAL HERNIA | | 2018 | | | MD Jorje [address] | REPAIR WITH | | | | | [address] | BIOLOGICAL MESH | | | | | [place], [place] | | | | | | [address] | | | | | | [phone] | | | | | | | | +--------+ + + + + | 06/30/ | Office | Cardiology | Randell Franks, | | | 2018 | Visit | | [address] | | | | | | Ave [place], [place] | | | | | | [address] | | | | | | [phone] | | | | | | | | +--------+ + + + + documented as of this encounter Visit Diagnoses Not on filedocumented in this encounter"
--- OUTSIDE RECORDS SUMMARY | ~2019-06-01 | XMS | Encounter Summary ---
Demographics + + + | Address | [address] | | | [place] [address] | + + + | Home Phone [...] [place], [place] | | | | | [address] | | + + + + + | Ellie Vang | ECON | Unknown | | + + + + + Care Team Providers + +------+ + | Care Unitizer Name | Role | Phone | + [...] CH4S | [facility] | | | | | [facility] | [place], [place] | | | | | and Healing, | [address] | | | | | [place] [address] [facility] | [phone] | | | | | Floor [place], [place] | | | | | | [address] | | | | | | [phone] | | | +--------+ + + + [...] Rd | | | | | | [place], [place] | | | | | | [address] | | | | | | [phone] | | | | | | | | +--------+ + + + + | 06/24/ | Surgery | Surgery | Chilo, | OPEN VENTRAL HERNIA | | 2018 | | | MD Jorje [address] | REPAIR WITH | | | | | [address] | BIOLOGICAL MESH | | | | | [place], [place] | | | | | | [address] | | | | | | [phone] | | | | | | | | +--------+ + + + + | 06/30/ | Office | Cardiology | Randell Franks, | | | 2019 | Visit | | MD [address] | | | | | | Ave [place], [place] | | | | | | [address] | | | | | | [phone] | | | | | | | | +--------+ + + + + documented as of this encounter Visit Diagnoses Not on filedocumented in this encounter"
--- OUTSIDE RECORDS SUMMARY | ~2019-06-01 | XMS | Encounter Summary ---
Demographics + + + | Address | [address] | | | [place] [address] | + + + | Home Phone [...] + | Katalina Padilla | ECON | [address] | | | | | [place], [place] | | | | | [address] | | + + + + + | Ellie Vang | ECON | Unknown | | + + + + + Care Team Providers + +------+ + | Care Aids Nurse Name | Role | Phone | [...] | | 2019 | | Preventive at [facility] | MD [address] | (PHENTERMINE 37.5 mg | | | | [address] | [place], [place] | oral tablet); | | | | Mailcode: [place] | [phone] | Refill Request | | | | [facility] | [phone] | | | | | and [address], | | | | | | [address] | | | | | | [place], [place] | | | | | | [address] | | | | | | [phone] | | | +--------+--------+ + + + [...] Rd | | | | | | [place], [place] | | | | | | [address] | | | | | | [phone] | | | | | | | | +--------+ + + + + | 06/24/ | Surgery | Surgery | Chilo, | OPEN VENTRAL HERNIA | | 2018 | | | MD [address] | REPAIR WITH | | | | | [address] | BIOLOGICAL MESH | | | | | [place], [place] | | | | | | [address] | | | | | | [phone] | | | | | | | | +--------+ + + + + | 06/30/ | Office | Cardiology | Randell Franks, | | | 2019 | Visit | | MD [address] | | | | | | Ave [place], [place] | | | | | | [address] | | | | | | [phone] | | | | | | | | +--------+ + + + + documented as of this encounter Visit Diagnoses Not on filedocumented in this encounter"
--- OUTSIDE RECORDS SUMMARY | ~2019-06-01 | XMS | Encounter Summary ---
Demographics + + + | Address | [address] | | | [place] [address] | + + + | Home Phone [...] [place], [place] | | | | | [address] | | + + + + + | Ellie Vang | ECON | Unknown | | + + + + + Care Team Providers + +------+ + | Care Senior Analyst Programmer Name | Role | Phone | [...] | Tiny, | | | | | MA EST | Fadi Person DO | MD Randell | | | | | PATIENT | [address] | [address] | | | | | [address] | [address] | Ave | | | | | | [place], | [place], [place] | | | | | | [place] [address] | [address] | | | | | | Phone: | Phone: | | | | | | [phone] | [phone] | | | | | | Fax: | Fax: | | | | | | [phone] | [phone] | +--------+--------+ + + + + Encounter Details +--------+---------+ + + + | Date | Type | Department | Care Team | Description | +--------+---------+ + + + | 04/03/ | Office | Cardiology | Randell Franks, | Morbid obesity (HCC) | | 2015 | Visit | Preventive at [facility] | [address] | (Primary Dx); Type | | | | [address] | Ave [place], [place] | 2 diabetes mellitus | | | | Mailcode: CH9A | [address] | without complication | | | | [facility] | [phone] | ([facility]) | | | | and [address], | | | | | | [address] | | | | | | [place], [place] | | | | | | [address] | | | | | | [phone] | | | +--------+---------+ + + + [...] 500 mg by mouth once daily. CALCIUM CRB&PZN-X1-YYL16-GENIS ORAL Take 1 tablet by mouth two [...] documented, but if we use her last [facility] weight of 410 lbs, this would put her at 360 lbs before consideration for RYGBP. She is working with the bariatric surgery topology teacher to try to achieve this. She states [...] visit Diet: healthy, working with Bar Surg topology teacher Exercise: "I walk everywhere." ROS: No CP, [...] | | | | | | [place], [place] | | | | | | [address] | | | | | | [phone] | | | | | | | | +--------+ + + + + | 06/24/ | Surgery | Surgery | Chilo, | OPEN VENTRAL HERNIA | | 2018 | | | MD Jorje [address] | REPAIR WITH | | | | | [address] | BIOLOGICAL MESH | | | | | [facility] [place] | | | | | | [address] | | | | | | [phone] | | | | | | | | +--------+ + + + + | 06/30/ | Office | Cardiology | Randell Franks, | | | 2018 | Visit | | [address] | | | | | | Ave [place], [place] | | | | | | [address] | | | | | | [phone] | | | | | | | | +--------+ + + + + documented as of this encounter Visit Diagnoses + + | Diagnosis | + + | Morbid obesity (HCC) - Primary Morbid obesity | + + | Type 2 diabetes mellitus without complication (HCC) | + + documented in this encounter
--- OUTSIDE RECORDS SUMMARY | ~2019-06-01 | XMS | Encounter Summary ---
Demographics + + + | Address | [address] | | | [place] [address] | + + + | Home Phone [...] [place], [place] | | | | | [address] | | + + + + + | Ellie Vang | ECON | Unknown | | + + + + + Care Team Providers + +------+ + | Care Production Associate Name | Role | Phone | [...] | 06/23/ | Hospital | [facility] [address] | Kaleb Wilcox MD | | | 2017 | Encounter | [address] | [address] | | | | | [address] | [place], [place] | | | | | [place], | [address] | | | | | [place] [address] | [phone] | | | | | [phone] | | | +--------+ + + + [...] hours or on weekends and holiday Hospital Floor Director toll free [phone] ext. [phone] and have the GI doctor communications operator paged. The provider who performed your procedure is: Dr. Wilcox Results of your EGD: Dilation performed. You may resume your regular diet. Follow up Appointments with: Follow up with Dr. Pandey in bariatric surgery, thank you for choosing [facility]! Your primary care provider or referring [...] | | 0 | | | | CRB&NFM-V3-HYC09-GEN | mouth two times | | | [...] 2:35 PM PST PRE PROCEDURE NOTE: MR# [id number] Subjective: Elzbieta Cristina is a 43 y.o. [...] [place] | | | | | | [address] | | | | | | [phone] | | | | | | | | +--------+ + + + + | 06/24/ | Surgery | Surgery | Chilo, | OPEN VENTRAL HERNIA | | 2019 | | | MD [address] | REPAIR WITH | | | | | [address] | BIOLOGICAL MESH | | | | | [place], [place] | | | | | | [address] | | | | | | [phone] | | | | | | | | +--------+ + + + + | 06/30/ | Office | Cardiology | Randell Franks, | | | 2019 | Visit | | [address] | | | | | | [place], [place] | | | | | | [address] | | | | | | [phone] | | | | | | | [...] -----+ | MRN: | [facility] | | [id number] Date: 06/23/2018Patient Name: Elzbieta Curtis #: | ENDOSCOP Y | | [id number] of : 1975CSN: [id number] Type: | | | AmbulatoryRoom: SORProcedure: Upper GI | | | endoscopyIndications: Nausea with vomiting, Status post | | | Dfpi-te-TUdabatkjq: KALEB WILCOX MD (Doctor)JOSE | | | NASIMA, Theatre Manager | | | (Theatre Manager)Referring MD: DANIELLE GARCÍAPRequesting | | | Provider: [...] | | | The Olympus GIF-HQ190 Gastroscope #[id number] was | | | introduced through the [...] endoscope without resistance. The | | | sgfnu-gv-aguqtpn limb was characterized by healthy appearing | [...] Initiated On: | | | 06/23/2018 3:58 [facility] Letter to: FADI GOODRICH DO | | [...] + + | Performing | Address | City[facility] | Phone Number | | Organization | [...] AMES | [address] | [place], [place] | | | JUSTINE DAWN OF [facility] | [address] | [address] | | | TESTS | | | [...] | | | | | | Until [facility] 06/24/18 at 0027, | | [...] intravenous, POSTPROCEDURE PRN, | | | Starting [facility] 06/23/18 at 1532, | | | Until [facility] 06/24/18 at 0027, | | | hypopnea | | + +---+ | | | + +---+ | ondansetron (ZOFRAN) injection | | | 4 mg 4 mg, intravenous, | | | POSTPROCEDURE PRN, 1 dose, | | | Starting [facility] 06/23/18 at 1532, | | | Until [facility] 06/24/18 at 0027, | | [...]
--- OUTSIDE RECORDS SUMMARY | ~2019-06-01 | XMS | Encounter Summary ---
Demographics + + + | Address | [address] | | | [place] [address] | + + + | Home Phone [...] [place], [place] | | | | | [address] | | + + + + + | Ellie Vang | ECON | Unknown | | + + + + + Care Team Providers + +------+ + | Care Lathe Set Up Person Name | Role | Phone | + +------+ + | Fadi Goodrich DO | PCP | | + +------+ + Encounter Details +--------+ + + + + | Date | Type | Department | Care Team | Description | +--------+ + + + + | 12/12/ | Emergency | [facility] Emergency | | | | 2014 - | | Department [address] | | | | | | [address] | | | | 05/20/ | | [facility] | | | | 2014 | | [place], [place] | | | | | | [address] | | | | | | [phone] | | | +--------+ + + + [...] Rd | | | | | | [place], [place] | | | | | | [address] | | | | | | [phone] | | | | | | | | +--------+ + + + + | 06/24/ | Surgery | Surgery | Chilo | OPEN VENTRAL HERNIA | | 2019 | | | MD Jorje [address] | REPAIR WITH | | | | | [address] | BIOLOGICAL MESH | | | | | [place], [place] | | | | | | [address] | | | | | | [phone] | | | | | | | | +--------+ + + + + | 06/30/ | Office | Cardiology | Randell Franks, | | | 2019 | Visit | | [address] | | | | | | [place] | | | | | | [address] | | | | | | [phone] | | | | | | | | +--------+ + + + + documented as of this encounter Visit Diagnoses Not on filedocumented in this encounter"
--- OUTSIDE RECORDS SUMMARY | ~2019-06-01 | XMS | Encounter Summary ---
Demographics + + + | Address | [address] | | | [place] [address] | + + + | Home Phone [...] [place], [place] | | | | | [address] | | + + + + + | Ellie Vang | ECON | Unknown | | + + + + + Care Team Providers + +------+ + | Care Thermit Welding Machine Operator Name | Role | [...] | | | | | | | [facility] | | | | | | | Health and | | | | | | | Healing, | | | | | | | [address] | | | | | | | [place], [place] | | | | | | | [address] | | | | | | | Phone: | | | | | | | [phone] | | | | | | | Fax: | | | | | | | [phone] | +--------+--------+ + + + + Encounter [...] | | | | Mailcode: Center | [place], [place] | ([facility]) | | | | for Health and | [address] | | | | | [facility] 2 | | | | | | [place], [place] | | | | | | [address] | | | | | | [phone] | | | +--------+---------+ + + + [...] of Visit: 10:06 to 10:32 (26 minutes ubox-jh-dgff with patient & friend) SUBJECTIVE: Is surprised she has gained weight; is disappointed. Still following her usual meal plan. H as d/c'd diet soda. Still struggling w/ eating out of boredom - choosing 100 kcal snacks but having ~3 of them at a time. Not as much emotional eating lately. Has been keeping food log s (on paper) - avg 1284-5899 kcal/d. Trying to increase activity. B: Atkins [...] provided. Olga Lidia Montanez RD, [place] Pager [phone] documented in this en counter Plan of [...] [place] | | | | | | [address] | | | | | | [phone] | | | | | | | | +--------+ + + + + | 06/24/ | Surgery | Surgery | Chilo, | OPEN VENTRAL HERNIA | | 2018 | | | MD [address] | REPAIR WITH | | | | | [address] | BIOLOGICAL MESH | | | | | [place] | | | | | | [address] | | | | | | [phone] | | | | | | | | +--------+ + + + + | 06/30/ | Office | Cardiology | Randell Franks, | | | 2018 | Visit | | [address] | | | | | | [place], [place] | | | | | | [address] | | | | | | [phone] | | | | | | | [...]
--- OUTSIDE RECORDS SUMMARY | ~2019-06-01 | XMS | Encounter Summary ---
Demographics + + + | Address | [address] | | | [place] [address] | + + + | Home Phone [...] [place], [place] | | | | | [address] | | + + + + + | Ellie Vang | ECON | Unknown | | + + + + + Care Team Providers + +------+ + | Care Station Helper Name | Role | Phone | [...] Rd | | | | | | [place], [place] | | | | | | [address] | | | | | | [phone] | | | | | | | | +--------+ + + + + | 06/24/ | Surgery | Surgery | Chilo, | OPEN VENTRAL HERNIA | | 2018 | | | MD Jor[address] | REPAIR WITH | | | | | [address] | BIOLOGICAL MESH | | | | | [place], [place] | | | | | | [address] | | | | | | [phone] | | | | | | | | +--------+ + + + + | 06/30/ | Office | Cardiology | Randell Franks, | | | 2018 | Visit | | [address] | | | | | | [place], [place] | | | | | | [address] | | | | | | [phone] | | | | | | | | +--------+ + + + + documented as of this encounter Visit Diagnoses Not on filedocumented in this encounter"
--- OUTSIDE RECORDS SUMMARY | ~2019-06-01 | XMS | Encounter Summary ---
Demographics + + + | Address | [address] | | | [place] [address] | + + + | Home Phone [...] [place], [place] | | | | | [address] | | + + + + + | Ellie Vang | ECON | Unknown | | + + + + + Care Team Providers + +------+ + | Care Southeast Regional Sales Manager Name | Role | Phone [...] | | 2015 | | Preventive at [facility] | MD [address] | | | | | [address] | [place], [place] | | | | | Mailcode: [facility] | [address] | | | | | [facility] | [phone] | | | | | and [address], | | | | | | [address] | | | | | | [place], [place] | | | | | | [address] | | | | | | [phone] | | | +--------+ + + + [...] [place] | | | | | | [address] | | | | | | [phone] | | | | | | | | +--------+ + + + + | 06/24/ | Surgery | Surgery | Chilo | OPEN VENTRAL HERNIA | | 2018 | | | MD [address] | REPAIR WITH | | | | | [address] | BIOLOGICAL MESH | | | | | [place] | | | | | | [address] | | | | | | [phone] | | | | | | | | +--------+ + + + + | 06/30/ | Office | Cardiology | Randell Franks, | | | 2019 | Visit | | [address] | | | | | | [place], [place] | | | | | | [address] | | | | | | [phone] | | | | | | | | +--------+ + + + + documented as of this encounter Visit Diagnoses Not on filedocumented in this encounter"
--- OUTSIDE RECORDS SUMMARY | ~2019-06-01 | XMS | Encounter Summary ---
Demographics + + + | Address | [address] | | | [place] [address] | + + + | Home Phone [...] + | Katalina Padilla | ECON | [address] | | | | | [place], [place] | | | | | [address] | | + + + + + | Ellie Vang | ECON | Unknown | | + + + + + Care Team Providers + +------+ + | Care Academic Associate Name | Role | Phone | + +------+ + | Fadi Goodrich DO | PCP | | + +------+ + Encounter Details +--------+ + + + + | Date | Type | Department | Care Team | Description | +--------+ + + + + | 03/04/ | Telephone | Digestive Health | Ion Pandey, | | | 2018 | | [place] at [facility] [address] | MD [address] | | | | | [address] | [place], [place] | | | | | Mailcode: [place] | [address] | | | | | for Health and | | | | | | [facility] 2 | | | | | | [facility] [place] | | | | | | [address] | | | | | | | [...] Rd | | | | | | [place], [place] | | | | | | [address] | | | | | | [phone] | | | | | | | | +--------+ + + + + | 06/24/ | Surgery | Surgery | Chilo | OPEN VENTRAL HERNIA | | 2018 | | | MD [address] | REPAIR WITH | | | | | [address] | BIOLOGICAL MESH | | | | | [place], [place] | | | | | | [address] | | | | | | [phone] | | | | | | | | +--------+ + + + + | 06/30/ | Office | Cardiology | Randell Franks, | | | 2018 | Visit | | [address] | | | | | | [place] | | | | | | [address] | | | | | | [phone] | | | | | | | | +--------+ + + + + documented as of this encounter Visit Diagnoses Not on filedocumented in this encounter"
--- OUTSIDE RECORDS SUMMARY | ~2019-06-01 | XMS | Encounter Summary ---
Demographics + + + | Address | [address] | | | [place] [address] | + + + | Home Phone [...] [place], [place] | | | | | [address] | | + + + + + | Ellie Vang | ECON | Unknown | | + + + + + Care Team Providers + +------+ + | Care Aircraft Instrument Tester Name | Role | Phone | [...] [place] | | | | | | [address] | | | | | | [phone] | | | | | | | | +--------+ + + + + | 06/24/ | Surgery | Surgery | Chilo, | OPEN VENTRAL HERNIA | | 2018 | | | MD Jor[address] | REPAIR WITH | | | | | [address] | BIOLOGICAL MESH | | | | | [place], [place] | | | | | | [address] | | | | | | [phone] | | | | | | | | +--------+ + + + + | 06/30/ | Office | Cardiology | Randell Franks, | | | 2018 | Visit | | [address] | | | | | | [place], [place] | | | | | | [address] | | | | | | [phone] | | | | | | | | +--------+ + + + + documented as of this encounter Visit Diagnoses Not on filedocumented in this encounter"
--- OUTSIDE RECORDS SUMMARY | ~2019-06-01 | XMS | Encounter Summary ---
Demographics + + + | Address | [address] | | | [place] [address] | + + + | Home Phone [...] [place], [place] | | | | | [address] | | + + + + + | Ellie Vang | ECON | Unknown | | + + + + + Care Team Providers + +------+ + | Care Lance Crewmember/Mlrs Sergeant Name | Role | Phone | + +------+ + | Fadi Goodrich DO | PCP | | + +------+ + Encounter Details +--------+ + + + + | Date | Type | Department | Care Team | Description | +--------+ + + + + | 03/16/ | Telephone | Digestive Health | Ronna Clarke, | | | 2017 | | Center at [facility] [address] | ACNP [address] | | | | | [address] | [place], [place] | | | | | Mailcode: [place] | [address] | | | | | for Health and | [phone] | | | | | [facility] 2 | | | | | | [place], [place] | | | | | | [address] | | | | | | | [...] [place] | | | | | | [address] | | | | | | [phone] | | | | | | | | +--------+ + + + + | 06/24/ | Surgery | Surgery | Chilo | OPEN VENTRAL HERNIA | | 2018 | | | MD [address] | REPAIR WITH | | | | | [address] | BIOLOGICAL MESH | | | | | [place], [place] | | | | | | [address] | | | | | | [phone] | | | | | | | | +--------+ + + + + | 06/30/ | Office | Cardiology | Randell Franks, | | | 2018 | Visit | | [address] | | | | | | [place] | | | | | | [address] | | | | | | [phone] | | | | | | | | +--------+ + + + + documented as of this encounter Visit Diagnoses Not on filedocumented in this encounter"
--- OUTSIDE RECORDS SUMMARY | ~2019-06-01 | XMS | Encounter Summary ---
Demographics + + + | Address | [address] | | | [place] [address] | + + + | Home Phone [...] [place], [place] | | | | | [address] | | + + + + + | Ellie Vang | ECON | Unknown | | + + + + + Care Team Providers + +------+ + | Care Burr Mill Operator Name | Role | Phone [...] INCISIONAL HERNIA | | 2015 | | [facility] | [address] | REPAIR | | | | Admitting Desk | [address] | | | | | Located on the 9 | [place], [place] | | | | | floor [address] | [address] | | | | | [address] | [phone] | | | | | [place], [place] | | | | | | [address] | | | +--------+---------+ + + + [...] port site who was transferre d to [facility] for concern of an incarcerated hernia. [...] mouth once daily. , Historical Med CALCIUM [id number] ORAL Take 1 tablet by mouth two [...] 10:40 AM Randell Franks Cardiology Preventive at [facility] [phone] Cardiology 04/09/2015 1:00 PM Egs Ppv Tra Trauma Emergency General Surgery at [facility] [phone] [facility] Outstanding labs/studies: None Discharging Physician: GABO LANGSTON MD Attending Physician: Dr. Cantu PCP: Fadi Goodrich DO Signed: GABO LANGSTON MD Pager #[phone] [employer] [facility] Associated attestation - Tye Carrillo DO - 03/12/2015 9:12 AM PDTAttending: I discussed this patient with the resident and agree with the assessment and plan as outlin ed in this note and participated in the planning of care. Tye Carrillo DO, SIDRA, FACS Division of Trauma, Critical Care & Acute Care Surgery [facility] [phone] documented in this encounter Medications at Time of Discharge + + + +---------+--------+ + | Medication | Sig | Dispensed | Refills | Start | End Date | | | | | | Date | | + + + +---------+--------+ + | CALCIUM | Take 2 tablets by | | 0 | | | | [id number]-GEN | mouth two times | | | [...] might be differ ent from the original. [facility] DEPARTMENT OF SURGERY EMERGENCY GENERAL SURGERY Division [...] obesity with known ventral hernias transferred to [facility] for surgical managem ent of ventral hernia, now s/p repair. Post surgical pain: -patient ready for d/c, discussed f/u. Patient lives far away and has other appointments at [facility]. Will attempt to coordinate appointments. Discharge Plan: D/c today GABO LANGSTON MD Pager #[phone] Surgical [employer] [facility] ick Mendez, [place] rose R - 03/02/2015 1:12 PM PDT [facility] DEPARTMENT OF SURGERY EMERGENCY GENERAL SURGERY Division of Trauma and Critical Care Attending Physician: Shahid Cantu MD Progress Note Note Date: 03/02/2015 Admission Date: 2015 DYLAN ROMERO, Hospital Day #2 40 F PMH morbid obesity (BMI 71 today), DM2, depression, GERD, h/o stroke at age 18, and kn own ventral hernias transferred to [facility] for surgical treatment of suspected incarcerated [...] obesity with known ventral hernias transferred to [facility] for surgical managem ent of ventral [...] will be robel ing her home to [place], [place]. CALVIN ROMERO MD PGY-1 Anesthesiology Pager: [phone] [facility] [address] [place] [address] Karthik Oneill MD - 03/02/2015 8:26 AM [id number] Calvin William Md - 03/01/2015 5:34 PM PDT Brief Post Operative Note: 40 F PMH morbid obesity (BMI 71 today), DM2, depression, GERD, h/o stroke at age 18, and kn own ventral hernias transferred to [facility] for surgical treatment of incarcerated ventral [...] control CALVIN ROMERO MD PGY-1 Anesthesiology Pager: [phone] signed by Calvin Romero Md at 03/01/2015 [...] [place] | | | | | | [address] | | | | | | [phone] | | | | | | | | +--------+ + + + + | 06/24/ | Surgery | Surgery | Chilo, | OPEN VENTRAL HERNIA | | 2019 | | | MD Demond Rec[address] | REPAIR WITH | | | | | [address] | BIOLOGICAL MESH | | | | | [place], [place] | | | | | | [address] | | | | | | [phone] | | | | | | | | +--------+ + + + + | 06/30/ | Office | Cardiology | Randell Franks, | | | 2019 | Visit | | [address] | | | | | | [place], [place] | | | | | | [address] | | | | | | [phone] | | | | | | | [...] | | Attending Surgeon: Shahid Cantu MD Commodities Manager(s): Howie Angeles MD, R5 | | [...] 03/02/2015 08:25:39DT: 03/02/2015 09:15:57Job #: | | [id number] | | | |Dr. Chris Cantu was present and scrubbed for the entirety of the case. | | | | | | | |Karthik Gonzalez MD | | | |Pursuant to federal Medicare and Medicaid regulations I was present for the entire procedur e. | | | | | | | |Shahid Cantu MD | |Operations And Maintenance Technican | |Trauma, Critical Care & Acute Care Surgery | | | | | | | |Shahid Cantu MD | |[place] | | | | | | /[phone] | + ---+ CAPILLARY BLOOD GLUCOSE (NO [...] - [place] | [address] | [place], [place] | | | [facility] OF CARE | [facility] | [address] | | | TESTS | | | [...] AMES | [address] | [place], [place] | | | [facility] OF [facility] | [facility] | [address] | | | TESTS | | | [...] [place]WAKU | [address] | [place], [place] | | | JUST[facility]WN OF [place] | [address] | [address] | | | TESTS | | | [...] [place]WAKU | [address] | [place], [place] | | | [facility] OF CARE | [address] | [address] | | | TESTS | | | [...] AMES | [address] | [place], [place] | | | [facility] OF [facility] | [facility] | [address] | | | TESTS | | | [...] [place] | [address] | [place], [place] | | | JUST[facility]WN OF JAKY | [address] | [address] | | | TESTS | | | [...] | + + + + + | [facility] | [address] [facility] | [place] [address] | | | SERVICES, CORE | CLARENCE [...] [facility] | [address] | [place] [address] | | | SERVICES, CORE | CLARENCE [...] AMES | [address] | [place], [place] | | | [facility] OF CARE | [address] | [address] | | | TESTS | | | [...] MARQUAM | [address] | [place], [place] | | | [facility] OF CARE | [address] | [address] | | | TESTS | | | [...] MARQU[place] | [address] | [place], [place] | | | [facility] OF JAKY | [address] | [address] | | | TESTS | | | [...] AMES | [address] | [place], [place] | | | [facility] OF CARE | [address] | [address] | | | TESTS | | | [...] MARQU[place] | [address] | [place], [place] | | | [facility] OF CARE | [address] | [address] | | | TESTS | | | [...] | + + + + + | [facility] | [address] | [place] [address] | | | SERVICES, CORE | CLARENCE [...] MARQUAM | [address] | [place], [place] | | | [facility] OF CARE | [address] | [address] | | | TESTS | | | [...]
--- OUTSIDE RECORDS SUMMARY | ~2019-06-01 | XMS | Encounter Summary ---
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 Operator Name | Role | Phone [...] + + | 11/05/ | Hospital | [facility] 14C [address] | Joseph An | | | 2016 - | Encounter | [address] | MD Birgit [address] [facility] | | | | | 14C [facility] | [address] | | | 11/20/ | | [place], [place] | [place], [place] | | | 2016 | | [address] | [address] | | | | | [phone] | [phone] | | | | | | | | | | | | Ana, | | | | | | MD Briana [address] | | | | | | [address] | | | | | | Rd [place], [place] | | | | | | [address] | | | | | | [phone] | | | | | | | | | | | | Carmelina Tucker, | | | | | | JEFFREY-Aimee [address] | | | | | | [address] | | | | | | [place], [place] | | | | | | [address] | | | | | | [phone] | | | | | | | | | | | | Charley Lacey MD | | | | | | Jose Scott MD | | | | | | [address] | | | | | | [address] | | | | | | [place], [place] | | | | | | [address] | | | | | | [phone] | | | | | | | | | | | | Mannie Larkin MD | | | | | | [address] | | | | | | [address] [place], | | | | | | [place] [address] | | | | | | [phone] | | | | | | | | | | | | Tyrone Adrian MD | | | | | | [address] | | | | | | [address] [place], | | | | | | [place] [address] | | | | | | [phone] | | | | | | | [...] did want her to follow up with stores assistant in [place]. She should continue working towards bariatric surgery wh ich will ultimately put less stress on her heart. -Continue torsemide 80mg BID -Increase potassium supplementation to KCl 40mg BID -Daily weights and strict 2g Na 2L fluid restricted diet -Close followup with Dr. Goodrich (appt on 11/25 at 11AM) -Needs followup with cardiology in [place] #Left lower extremity DVT #Presumed PE Asymmetric left lower extremity pain and swelling was suspicious for DVT and confirmed with duplex ultrasound. Did not pursue CTA as it was decided that it would not change advisor . Started anticoagulation bridge with heparin gtt [...] mouth once daily. , Historical Med CALCIUM [id number] ORAL Take 2 tablets by mouth two [...] Cyndi Meier Cardiology [facility]est[facility] Failure at [facility] Cardiology Additional Instructions/Orders: Diet Diabetic (Consistent [...] Good Yosef Segovia MD PGY-1 Internal Medicine [id number] INPATIENT FACULTY PROGRESS NOTE - GM 1 [...] (HCC) 15) Candidal intertrigo Tyrone Adrian MD [facility] 14C ruby on rails developer Division of Hospital Medicine Department of Medicine [address] [place] [address] [facility] DEPARTMENT: Hosp- [id number] Place of Service: Date of Service: 11/21/2015 CSN: [id number] Modifiers:GC Resident Involved: Yes Suggested CPT: 80216 Discharge Management < 30 minute documented in this encou nter Medications at Time of Discharge + + + +---------+--------+ + | Medication | Sig | Dispensed | Refills | Start | End Date | | | | | | Date | | + + + +---------+--------+ + | CALCIUM | Take 2 tablets by | | 0 | | | | [id number]-GEN | mouth two times | | | [...] (HCC) 15) Candidal intertrigo Tyrone Adrian MD [facility] 14C ruby on rails developer Division of Hospital Medicine Department of Medicine [facility] & [address] [place] [address] [facility] DEPARTMENT: Hosp- [id number] Place of Service: [facility] Date of Service: 11/20/2015 CSN: [id number] Modifiers:GC Resident Involved: Yes Suggested CPT: 39961 Subsequent Visit Exp Prob Foc/Mod Complexity 25 min Colleen Tello - 016 6:49 AM PDT PHYSICIAN APPLICATION INTEGRATION SPECIALIST STUDENT PROGRESS NOTE FOR EDUCATIONAL PURPOSES ONLY [...] of ovarian cysts or menses related. Contact POSTDOCTORAL RESEARCH ASSOCIATE if TV-US i s ordered. - TV-US [...] - topiramate 200mg po bid JEFFREY Gee-S2 [facility] PA Student Feeding: <2L fluid, Diabetic diet, >2g na Analgesia: APAP, gabapentin, hydrocodone Thromboembolic prophylaxis: Heparin/warfarin Glycemic control: moderate ISS Mobility: Encourage walking and movement Discharge: Expect hospital stay another 2-3 days with PCP FU (Dr. Goodrich) on Saturday 11/25 @ 1 1 am. - Referral to Tire Specialist Code status: FULL Associated attestation - Juliette Yosef Pryor - 11/20/2015 7:50 PM PDTI have read the [facility] t note by PA student Dara [...] PCP Yosef Segovia MD PGY-1 Internal Medicine [id number] Tyrone Adrian MD - 11/19/2015 11:51 AM [...] if the PO works) Tyrone Adrian MD [facility] 14C ruby on rails developer Division of Hospital Medicine Department of Medicine [facility] [address] [place] [address] [facility] DEPARTMENT: Hosp- [id number] Place of Service: Date of Service: 11/19/2015 CSN: [id number] Modifiers:GC Resident Involved: Yes Suggested CPT: 36695 Subsequent Visit Exp Prob Foc/Mod Complexity 25 min olleen Diamond - 016 6:24 AM PDT PHYSICIAN APPLICATION INTEGRATION SPECIALIST STUDENT PROGRESS NOTE FOR EDUCATIONAL PURPOSES ONLY [...] of ovarian cysts or menses related. Contact POSTDOCTORAL RESEARCH ASSOCIATE if TV-US i s ordered. - TV-US [...] - topiramate 200mg po bid JEFFREY Gee-S2 [facility] PA Student Feeding: <2L fluid, Diabetic diet, [...] can. Yosef Segovia MD PGY-1 Internal Medicine [id number] Tyrone Adrian MD - 11/18/2015 2:01 PM [...] (HCC) 15) Candidal intertrigo Tyrone Adrian MD [facility] 14C ruby on rails developer Division of Hospital Medicine Department of Medicine [facility] [address] [place] [address] [facility] DEPARTMENT: Hosp- [id number] Place of Service: Date of Service: 11/18/2015 CSN: [id number] Modifiers:GC Resident Involved: Yes Suggested CPT: 91912 Subsequent Visit Exp Prob Foc/Mod Complexity 25 [...] plan. Yosef Segovia MD PGY-1 Internal Medicine [id number] signed by Yosef Segovia at 11/18/2015 11:52 [...] (HCC) 15) Candidal intertrigo Tyrone Adrian MD [facility] 14C ruby on rails developer Division of Hospital Medicine Department of Medicine [facility] [place] [address] [place] [address] [facility] DEPARTMENT: Hosp- [id number] Place of Service: - Date of Service: 11/17/2015 CSN: [id number] Modifiers:GC Resident Involved: Yes Suggested CPT: 36992 Subsequent Visit Exp Prob Foc/Mod Complexity 25 min lowersColleen - 016 6:40 AM PDT PHYSICIAN APPLICATION INTEGRATION SPECIALIST STUDENT PROGRESS NOTE FOR EDUCATIONAL PURPOSES ONLY [...] - topiramate 200mg po bid JEFFREY Gee-S2 [facility] PA Student Feeding: <2L fluid, Diabetic diet, [...] have read the licha t note by EJFFREY student Dara and agree with the assessment [...] can Yosef Segovia MD PGY-1 Internal Medicine [id number] Tyrone Adrian MD - 11/16/2015 4:59 PM [...] (HCC) 15) Candidal intertrigo Tyrone Adrian MD [facility] 14C ruby on rails developer Division of Hospital Medicine Department of Medicine [facility] [address] [place] [address] [facility] DEPARTMENT: Hosp- [id number] Place of Service: Date of Service: 11/16/2015 CSN: [id number] Modifiers:GC Resident Involved: Yes Suggested CPT: 91414 Subsequent Visit Exp Prob Foc/Mod Complexity 25 min olleen Diamond - 016 6:43 AM PDT PHYSICIAN APPLICATION INTEGRATION SPECIALIST STUDENT PROGRESS NOTE FOR EDUCATIONAL PURPOSES ONLY [...] - topiramate 200mg po bid JEFFREY Gee-S2 [facility] PA Student Feeding: <2L fluid, Diabetic diet, [...] assistance of Grisel Pearl. Patient lives i [facility] which is quite a distance to travel to and from [place]. We would ideally arran ge cardiac follow [...] (HCC) 15) Candidal intertrigo Tyrone Adrian MD [facility] 14C ruby on rails developer Division of Hospital Medicine Department of Medicine [facility] [address] [place] [address] [facility] DEPARTMENT: Hosp- [id number] Place of Service: [facility] [id number] Date of Service: 11/15/2015 CSN: [id number] Modifiers:GC Resident Involved: Yes Suggested CPT: 31422 Subsequent Visit Detailed/High complexity 35 min lColleen goff - 016 6:33 AM PDT PHYSICIAN APPLICATION INTEGRATION SPECIALIST STUDENT PROGRESS NOTE FOR EDUCATIONAL PURPOSES ONLY INPATIENT PROGRESS NOTE PATIENT INFORMATION Patient Name: Elzbieta Cristina Date of : 1975 Date of Admission: 11/06/2015 PCP: Fadi Goodrich DO Room/Bed: [facility]/08/08 Attending Provider: Tyrone Adrian MD Encounter [...] last 8 days Intake 9571.5 ml Output 73719 ml Net since Admission -25270.5 ml -25.938 L = 57.0636 lbs Constitutional: [...] - topiramate 200mg po bid JEFFREY Gee-S2 [facility] PA Student Feeding: <2L fluid, Diabetic diet, >2g na Analgesia: APAP, gabapentin, hydrocodone Thromboembolic prophylaxis: Heparin/warfarin Glycemic control: moderate ISS Mobility: Encourage walking and movement Discharge: Expect hospital stay another 3-5 days with diuresis until more euvolemic and R h eart cath can be completed. Code status: FULL Associated attestation - Dyer, Yosef Pryor - 11/15/2015 2:59 PM PDTI [facility] student Dara and [...] can Yosef Segovia MD PGY-1 Internal Medicine [id number] Tyrone Adrian MD - 11/14/2015 4:16 PM PDTINPATIENT FACULTY PROGRESS NOTE - GM 1 Author; Tyrone Adrian MD Attending Physician: Tyrone Adrian MD Hospital Day: 8 PCP: Fadi Goodrich DO PCP PCP Patient's Name: Elzbitea Cristina Today's Date: 11/14/2015 I personally interviewed [...] (HCC) 15) Candidal intertrigo Tyrone Adrian MD [facility] 14C ruby on rails developer Division of Hospital Medicine Department of Medicine [address] [place] [address] [facility] DEPARTMENT: Hosp- [id number] Place of Service: Date of Service: 11/14/2015 CSN: [id number] Modifiers:GC Resident Involved: Yes Suggested CPT: 24951 Subsequent Visit Exp Prob Foc/Mod Complexity 25 min olleen Diamond - 016 6:42 AM PDT PHYSICIAN APPLICATION INTEGRATION SPECIALIST STUDENT PROGRESS NOTE FOR EDUCATIONAL PURPOSES ONLY [...] - topiramate 200mg po bid JEFFREY Gee-S2 [facility] PA Student Feeding: <2L fluid, Diabetic diet, [...] outpatient Yosef Segovia MD PGY-1 Internal Medicine [id number] Tyrone Adrian MD - 11/13/2015 4:06 PM [...] (HCC) 15) Candidal intertrigo Tyrone Adrian MD [facility] 14C ruby on rails developer Division of Hospital Medicine Department of Medicine [facility] & [place] [address] [place] [address] [facility] DEPARTMENT: Hosp- [id number] Place of Service: [facility] Date of Service: 11/13/2015 CSN: [id number] Modifiers:GC Resident Involved: Yes Suggested CPT: 85855 Subsequent Visit Detailed/High complexity 35 min lfelixsColleen - 016 6:36 AM PDT PHYSICIAN APPLICATION INTEGRATION SPECIALIST STUDENT PROGRESS NOTE FOR EDUCATIONAL PURPOSES ONLY [...] - topiramate 200mg po bid JEFFREY Gee-S2 [facility] PA Student Feeding: <2L fluid, Diabetic diet, [...] VTE. Yosef Segovia MD PGY-1 Internal Medicine [id number] Tyrone Adrian MD - 11/12/2015 1:59 PM [...] 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, J FLUME TENDER, at this point not definitive Plan: continue [...] ongoing 12) Candidal intertrigo Tyrone Adrian MD [facility] 14C ruby on rails developer Division of Hospital Medicine Department of Medicine [facility] [address] [place] [address] [facility] DEPARTMENT: Hosp- [id number] Place of Service: - Date of Service: 11/12/2015 CSN: [id number] Modifiers:GC Resident Involved: Yes Suggested CPT: 07485 Subsequent Visit Detailed/High complexity 35 min lColleen goff - 016 6:31 AM PDT PHYSICIAN APPLICATION INTEGRATION SPECIALIST STUDENT PROGRESS NOTE FOR EDUCATIONAL PURPOSES ONLY INPATIENT PROGRESS NOTE PATIENT INFORMATION Patient Name: Elzbieta Cristina Date of : 1975 Date of Admission: 11/06/2015 PCP: Fadi Goodrich DO Room/Bed: [facility]/ Attending Provider: Mannie Larkin MD Encounter [...] - topiramate 200mg po bid JEFFREY Gee-S2 [facility] PA Student Feeding: <2L fluid, Diabetic diet, [...] disease. Yosef Segovia MD PGY-1 Internal Medicine [id number] Mannie Larkin MD - 11/11/2015 9:19 PM [...] diuresis then RHC Mannie Larkin MD Clinical Dry Pan Feeder, Internal Medicine Pager [phone] ristalColleen martines - 10/25 6:40 AM PDT PHYSICIAN APPLICATION INTEGRATION SPECIALIST STUDENT PROGRESS NOTE FOR EDUCATIONAL PURPOSES ONLY [...] Mag 2.3 WNL ASSESSMENT/PLAN In summary, Elzbieta Cristian, a 40 year old morbidly obese female [...] - topiramate 200mg po bid JEFFREY Gee-S2 [facility] PA Student Feeding: <2L fluid, Diabetic diet, [...] pain Yosef Segovia MD PGY-1 Internal Medicine [id number] Maria Eugenia Leiva RCP - 11/11/2015 6:39 [...] another 5-7 days Mannie Larkin MD Clinical Dry Pan Feeder, Internal Medicine Pager [phone] Yosef Fang T - 7:24 AM PDT [...] plan. Yosef Segovia MD PGY-1 Internal Medicine [id number] signed by Yosef Segovia at 11/10/2015 2:50 [...] heart cath onc e a bit drier and pulverizer tender. In terms of AMARA - does not tolerate CPAP historically. Likely CPAP will be ve ry important for her going forward. Will try overnight oximetry here to assess severity. Discharge planning:Anticipate several days in house. I spent >35 min of which >50% was spent in counseling and coordination of care. Briana Perez MD [facility] Division of Hospital Medicine Grisel Mcghee NP [...] Maker Primary Surrogate Decision Maker Katalina kim [phone] Advanced Directives Existence of Advanced Directive Reviewed: No- Has Interest (11/09/15 1022) Advanced Directives Reviewed Comments: I gave a copy of advance directives (11/09/15 1022) KRISHNA Huertas NP [facility] 14[address] [facility] [address] [place] [address] lfelixColleen martines - 6:41 AM PDT PHYSICIAN APPLICATION INTEGRATION SPECIALIST STUDENT PROGRESS NOTE FOR EDUCATIONAL PURPOSES ONLY [...] of acute blood loss and anemia of nuclear medicine officer ela dz and thalassemia is less likely. [...] AM Yosef Segovia MD PGY-1 Internal Medicine [id number] Briana Perez MD - 11/08/2015 2:01 PM [...] and coordination of care. Briana Perez MD [facility] Division of Hospital Medicine ara Colleen - 11/08/2015 6:26 AM PDT PHYSICIAN APPLICATION INTEGRATION SPECIALIST STUDENT PROGRESS NOTE FOR EDUCATIONAL PURPOSES ONLY [...] po bid (topamax, nerve pain) JEFFREY Gee-S2 [facility] PA Student Feeding: <2L fluid, Diabetic diet [...] Hair Md, MSc Internal Medicine PGY2 Pager [phone] Kwadwo Freire - 11/07/2015 2:05 PM PDTTransthoracic [...] plan. Yosef Segovia MD PGY-1 Internal Medicine [id number] lfelixs Colleen - 016 8:43 AM PDT PHYSICIAN APPLICATION INTEGRATION SPECIALIST STUDENT PROGRESS NOTE FOR EDUCATIONAL PURPOSES ONLY [...] perfusion. - consider US to evaluate liver (FNPF-wde-ivboufsih fatty liver dz) and look for ascites. [...] and movement Code status: documented in this [facility] Plan of Treatment +--------+ + + [...] Rd | | | | | | [place], [place] | | | | | | [address] | | | | | | [phone] | | | | | | | [...] [place] | | | | | | [address] | | | | | | [phone] | | | | | | | | +--------+ + + + + | 06/30/ | Office | Cardiology | Randell Franks, | | | 2018 | Visit | | [address] | | | | | | [place], [place] | | | | | | [address] | | | | | | [phone] | | | | | | | [...] AMES | [address] | [place], [place] | | | LÓPEZ POINT OF CARE | [facility] | [address] | | | TESTS | | | [...] + + + | [facility] | [address] | [place] [address] | | | SERVICES, CORE | PARK [...] | + + + + + | [facility] | [address] | [place] [address] | | | SERVICES, CORE | LESLY [...] | + + + + + | [facility] | [address] | [place] [address] | | | SERVICES, CORE | PARK [...] [facility] | [address] | [place], [place] | | | JUSTINE DAWN OF CARE | [address] | [address] | | | TESTS | | | [...] [facility] | [address] | [place], [place] | | | JUSTINE DAWN OF CARE | [facility] | [address] | | | TESTS | | | [...] AMES | [address] | [place], [place] | | | JUSTINE DAWN OF CARE | [address] | [address] | | | TESTS | | | [...] Y[facility] | [address] | [place], [place] | | | L[place]PEZ POINT OF CARE | [address] | [address] | | | TESTS | | | [...] - [facility] | [address] | [place], [place] | | | L[place]PEZ POINT OF CARE | [address] | [address] | | | TESTS | | | [...] [facility] | [address] | [place] [address] | | | SERVICES, CORE | PARK [...] | + + + + + | [facility] | [address] | [place] [address] | | | CLAIRE, LYDIA | LESLY [...] [facility] | [address] | [place] [address] | | | SERVICES, CORE | PARK [...] the MDRD equation recommended by the | [facility] | | National Kidney Disease Education [...] | + + + + + | [facility] | [address] [facility] | [place] [address] | | | LYDIA RANGEL | LESLY [...] MARQUAM | [address] | [place], [place] | | | L[place]PEZ POINT OF CARE | [address] | [address] | | | TESTS | | | [...] AMES | [address] | [place], [place] | | | L[place]PEZ POINT OF CARE | [address] | [address] | | | TESTS | | | [...] | + + + + + | [facility] | [address] | [place] [address] | | | SERVICES, CORE | LESLY [...] [facility] | [address] | [place] [address] | | | SERVICES, CORE | PARK [...] + + + | [facility] | [address] | [place] [address] | | | CLAIRE, LYDIA | LESLY [...] [facility] | [address] | [place], [place] | | | JUSTINE DAWN OF [facility] | [address] | [address] | | | TESTS | | | [...] MARQUAM | [address] | [place], [place] | | | JUSTINE DAWN OF JAKY | [facility] | [address] | | | TESTS | | | [...] AMES | [address] | [place], [place] | | | L[place]PEZ POINT OF CARE | [address] | [address] | | | TESTS | | | [...] [facility] | [address] | [place], [place] | | | L[place]PE[place] OF [facility] | [address] | [address] | | | TESTS | | | [...] | + + + + + | [facility] | [address] | [place] [address] | | | SERVICES, CORE | LESLY [...] [facility] | [address] | [place] [address] | | | SERVICES, CORE | LESLY [...] MAR[facility] | [address] | [place], [place] | | | L[place]PEZ POINT OF CARE | [address] | [address] | | | TESTS | | | [...] AMES | [address] | [place], [place] | | | L[place]PEZ POINT OF CARE | [address] | [address] | | | TESTS | | | [...] + + + | [facility] | [address] | [place] [address] | | | SERVICES, LYDIA | LESLY [...] | + + + + + | [facility] | [address] | [place] [address] | | | LYDIA RANGEL | LESLY [...] [facility] | [address] | [place] [address] | | | SERVICES, CORE | PARK [...] + + + | [facility] | [address] | [place] [address] | | | SERVICES, CORE | PARK [...] [facility] | [address] | [place], [place] | | | JUSTINE DAWN OF JAKY | [facility] | [address] | | | TESTS | | | [...] (H) | 60 - 99 mg/dL | [facility] [...] [facility] | [address] | [place], [place] | | | LÓPEZ POINT OF CARE | [address] | [address] | | | TESTS | | | [...] AMES | [address] | [place], [place] | | | JUSTINE DAWN OF JAKY | [address] | [address] | | | TESTS | | | [...] - KW[facility] | [address] | [place], [place] | | | JUSTINE DAWN OF [facility] | [facility] | [address] | | | TESTS | | | [...] [facility] | [address] | [place] [address] | | | SERVICES, CORE | PARK [...] | + + + + + | [facility] | [address] | [place] [address] | | | SERVICES, CORE | PARK [...] + + + | [facility] | [address] | [place] [address] | | | SERVICES, CORE | PARK [...] + + + | [facility] | [address] | [place] [address] | | | SERVICES, CORE | LESLY [...] [facility] | [address] | [place] [address] | | | SERVICES, CORE | PARK [...] + + + | [facility] | [address] | [place] [address] | | | SERVICES, CORE | LESLY [...] [facility] | [address] | [place], [place] | | | LÓPEZ POINT OF CARE | [address] | [address] | | | TESTS | | | [...] (H) | 60 - 99 mg/dL | [facility] - | | | GLUCOSE, | | [...] MARQU[facility] | [address] | [place], [place] | | | JUSTINE DAWN OF CARE | [facility] | [address] | | | TESTS | | | [...] AMES | [address] | [place], [place] | | | L[place]PEZ POINT OF CARE | [address] | [address] | | | TESTS | | | [...] + + + | [facility] | [address] | [place] [address] | | | SERVICES, CORE | LESLY [...] - [facility] | [address] | [place], [place] | | | L[place]PEZ POINT OF CARE | [address] | [address] | | | TESTS | | | [...] [facility] | [address] | [place] [address] | | | SERVICES, CORE | PARK [...] + + + | [facility] | [address] | [place] [address] | | | SERVICES, CORE | LESLY [...] | + + + + + | [facility] | [address] | [place] [address] | | | SERVICES, CORE | PARK [...] | + + + + + | [facility] | [address] | [place] [address] | | | SERVICES, LYDIA | LESLY [...] [facility] | [address] | [place], [place] | | | JUSTINE DAWN OF CARE | [address] | [address] | | | TESTS | | | [...] | + + + + + | [facility] | [address] | [place] [address] | | | LYDIA RANGEL | LESLY [...] (H) | 60 - 99 mg/dL | [facility] [...] [facility] | [address] | [place], [place] | | | LÓPEZ POINT OF CARE | [address] | [address] | | | TESTS | | | [...] + + + | [facility] | [address] [facility] | [place] [address] | | | SERVICES, CORE | LESLY [...] [facility] | [address] | [place], [place] | | | LÓPEZ POINT OF CARE | [address] | [address] | | | TESTS | | | [...] - [facility] | [address] | [place], [place] | | | L[place]PEZ POINT OF CARE | [address] | [address] | | | TESTS | | | [...] [facility] | [address] | [place] [address] | | | SERVICES, CORE | LESLY [...] | + + + + + | [facility] | [address] | [place] [address] | | | SERVICES, CORE | PARK [...] | + + + + + | [facility] | [address] | [place] [address] | | | SERVICES, CORE | PARK [...] + + + | [facility] | [address] | [place] [address] | | | SERVICES, CORE | LESLY [...] | + + + + + | [facility] | [address] | [place] [address] | | | SERVICES, CORE | LESLY [...] (H) | 60 - 99 mg/dL | [facility] - | | | GLUCOSE, | | [...] AMES | [address] | [place] [place] | | | [facility] | [address] | [address] | | | TESTS | | | [...] + + + | [facility] | [address] | [place] [address] | | | SERVICES, CORE | LESLY [...] MARQUAM | [address] | [place], [place] | | | JUSTINE [facility]WN OF CARE | [facility] | [address] | | | TESTS | | | [...] AMES | [address] | [place], [place] | | | [facility] | [address] | [address] | | | TESTS | | | [...] + + + | [facility] | [address] | [place] [address] | | | SERVICES, LYDIA | LESLY [...] MARPAT[facility] | [address] | [place], [place] | | | JUSTINE DAWN OF CARE | [facility] | [address] | | | TESTS | | | [...] [facility] | [address] | [place] [address] | | | SERVICES, CORE | PARK [...] [facility] | [address] | [place] [address] | | | SERVICES, CORE | PARK [...] + + + | [facility] | [address] | [place] [address] | | | SERVICES, CORE | LESLY [...] | + + + + + | [facility] | [address] | [place] [address] | | | SERVICES, CORE | [address] | | | + + + [...] KWAKU | [address] | [place], [place] | | | JUSTINE DAWN OF JAKY | [facility] | [address] | | | TESTS | | | [...] YAKOVAM | [address] | [place], [place] | | | JUSTINE DAWN OF JAKY | [facility] | [address] | | | TESTS | | | [...] (H) | 60 - 99 mg/dL | [facility] AMES | [address] | [place], [place] | | | [facility] | [address] | [address] | | | TESTS | | | [...] KWAKU | [address] | [place] | | | JUSTINE DAWN OF JAKY | [facility] | [address] | | | TESTS | | | [...] [facility] | [address] | [place] [address] | | | SERVICES, CORE | PARK [...] [facility] | [address] | [place] [address] | | | SERVICES, CORE | PARK [...] + + + | [facility] | [address] | [place] [address] | | | SERVICES, CORE | PARK [...] + + + | [facility] | [address] | [place] [address] | | | SERVICES, CORE | LESLY [...] [facility] | [address] | [place] [address] | | | SERVICES, CORE [...] + + + | [facility] | [address] | [place] [address] | | | CLAIRE, LYDIA | LESLY [...] [facility] | [address] | [place] [address] | | | LYDIA RANGEL | LESLY [...] | + + + + + | [facility] [employer] | [address] | [place] [address] | | | SERVICES, LYDIA | LESLY [...] YAKOVAM | [address] | [place], [place] | | | JUSTINE DAWN OF CARE | [facility] | [address] | | | TESTS | | | [...] (H) | 60 - 99 mg/dL | [facility] [...] KWAKU | [address] | [place], [place] | | | [facility] | [address] | [address] | | | TESTS | | | [...] AMES | [address] | [place] | | | JUSTINE DAWN OF JAKY | [facility] | [address] | | | TESTS | | | [...] MARQUAM | [address] | [place], [place] | | | [facility] | [address] | [address] | | | TESTS | | | [...] [facility] | [address] | [place] [address] | | | SERVICES, CORE | PARK [...] [facility] | [address] | [place] [address] | | | SERVICES, CORE | PARK [...] + + + | [facility] | [address] | [place] [address] | | | SERVICES, CORE | LESLY [...] | + + + + + | [facility] | [address] | [place] [address] | | | SERVICES, CORE | LESLY [...] AMES | [address] | [place] | | | JUSTINE DAWN OF JAKY | [facility] | [address] | | | TESTS | | | [...] | + + + + + | [facility] | [address] | [place] [address] | | | CLAIRE, LYDIA | LESLY [...] | 1.014 | 1.005 - 1.030 | [facility] | | | GRAVITY | | | [...] | + + + + + | [facility] | [address] | [place] [address] | | | SERVICES, CORE | PARK [...] [facility] | [address] | [place] [address] | | | SERVICES, CORE | PARK [...] | + + + + + | [facility] | [address] | [place] [address] | | | LYDIA RANGEL | LESLY [...] YAKOVAM | [address] | [place], [place] | | | JUSTINE DAWN OF JAKY | [facility] | [address] | | | TESTS | | | [...] (H) | 60 - 99 mg/dL | [facility] [...] KWAKU | [address] | [place], [place] | | | [facility]WN OF [facility] | [address] | [address] | | | TESTS | | | [...] + + + | [facility] | [address] | [place] [address] | | | SERVICES, LYDIA | LESLY [...] MARQUAM | [address] | [place], [place] | | | [facility] | [address] | [address] | | | TESTS | | | [...] [facility] | [address] | [place] [address] | | | SERVICES, CORE | LESLY [...] | + + + + + | [facility] | [address] | [place] [address] | | | SERVICES, CORE | [address] | | | + + + + + MAGNESIUM, PLASMA (11/11/2015 4:39 AM PDT) + +-------+ + + + | Component | Value | Ref Range | Performed | Pathologist | | | | | At | Signature | + +-------+ + + + | MAGNESIUM,P | 2.3 | 1.8 - 2.5 mg/dL | [facility] | | | LASMA | | | [...] + + + | [facility] | [address] | [place] [address] | | | SERVICES, CORE | LESLY [...] | + + + + + | [facility] | [address] | [place] [address] | | | SERVICES, CORE | LESLY [...] (H) | 60 - 99 mg/dL | [facility] [...] AMES | [address] | [place], [place] | | | [facility] | [address] | [address] | | | TESTS | | | [...] + + + | [facility] | [address] | [place] [address] | | | LYDIA RANGEL | LESLY [...] - [facility] | [address] | [place] | | | [facility] | [address] | [address] | | | TESTS | | | [...] AMES | [address] | [place] | | | [facility] | [address] | [address] | | | TESTS | | | [...] + + + | [facility] | [address] | [place] [address] | | | LYDIA RANGEL | LESLY [...] [facility] | [address] | [place] | | | [facility] | [address] | [address] | | | TESTS | | | [...] [facility] | [address] | [place] [address] | | | SERVICES, CORE | PARK [...] [facility] | [address] | [place] [address] | | | SERVICES, CORE | LESLY [...] + + + | [facility] | [address] | [place] [address] | | | SERVICES, CORE | LESLY [...] [facility] | [address] | [place] [address] | | | SERVICES, CORE | PARK [...] | + + + + + | [facility] | [address] | [place] [address] | | | SERVICES, CORE | LESLY [...] and | 50 - 200 ng/mL | [facility] | | | | Female >18 years: [...] + + + | [facility] | [address] | [place] [address] | | | LYDIA RANGEL | LESLY [...] MARQUAM | [address] | [place], [place] | | | JUSTINE DAWN OF CARE | [address] | [address] | | | TESTS | | | [...] AMES | [address] | [place], [place] | | | [facility] | [address] | [address] | | | TESTS | | | [...] + | [facility] DEPARTMENT OF | | | | [...] and meds | | | Procedure location: Unit:[facility] Room: 13 Providers: PICC Nurse | [...] verifies correct patient, procedure, equipment, clinical support nurse | | | and site/side marked as [...] | area Cephalic vein. Catheter lot number: [id number] with a length of | | | [...] KW[facility]U | [address] | [place], [place] | | | JUST[facility]WN OF CARE | [address] | [address] | | | TESTS | | | [...] [facility] | [address] | [place] [address] | | | SERVICES, CORE | PARK [...] - KW[facility]U | [address] | [place], [place] | | | [facility] | [address] | [address] | | | TESTS | | | [...] + + + | [facility] | [address] | [place] [address] | | | SERVICES, CORE | PARK [...] + + + | [facility] | [address] | [place] [address] | | | SERVICES, CORE | PARK [...] [facility] | [address] | [place] [address] | | | LYDIA RANGEL | LESLY [...] + + + | [facility] | [address] | [place] [address] | | | SERVICES, CORE | PARK [...] + + | [facility] | [address] | [place] | | | JUSTINE DAWN OF CARE | [address] | [address] | | | TESTS | | | [...] KWAKU | [address] | [place] | | | [facility] | [address] | [address] | | | TESTS | | | [...] + + + | [facility] | [address] | [place] [address] | | | SERVICES, CORE | LESLY [...] [facility] | [address] | [place] [address] | | | SERVICES, CORE | PARK [...] | + + + + + | [facility] | [address] | [place] [address] | | | SERVICES, CORE | LESLY [...] (H) | 60 - 99 mg/dL | [facility] [...] AMES | [address] | [place] | | | [facility] | [address] | [address] | | | TESTS | | | [...] MARQU[facility] | [address] | [place] | | | [facility] | [address] | [address] | | | TESTS | | | [...] [facility] | [address] | [place], [place] | | | JUSTINE DAWN OF JAKY | [address] | [address] | | | TESTS | | | [...] + + + | [facility] | [address] | [place] [address] | | | SERVICES, CORE | PARK [...] + + + | [facility] | [address] | [place] [address] | | | SERVICES, LYDIA | LESLY [...] | + + + + + | [facility] | [address] | [place] [address] | | | SERVICES, CORE | PARK [...] [facility] | [address] | [place] [address] | | | LYDIA RANGEL | [address] [...] + + + | [facility] | [address] | [place] [address] | | | SERVICES, CORE | LESLY [...] [facility] | [address] | [place] [address] | | | SERVICES, CORE | PARK [...] + + + | [facility] | [address] | [place] [address] | | | SERVICES, CORE | LESLY [...] MAR[facility] | [address] | [place], [place] | | | [facility] | [address] | [address] | | | TESTS | | | [...] | + + + + + | [facility] | [address] | [place] [address] | | | SERVICES, CORE | LESLY [...] (H) | 60 - 99 mg/dL | [facility] [...] AMES | [address] | [place] | | | JUSTINE [facility]WN OF CARE | [address] | [address] | | | TESTS | | | [...] [facility] | [address] | [place] | | | JUSTINE DAWN OF CARE | [address] | [address] | | | TESTS | | | [...] | + + + + + | [facility] | [address] | [place], [place] | | | CARDIOLOGY | [address] | [address] | | + + + + + [...] [facility] | [address] | [place] | | | [facility] | [address] | [address] | | | TESTS | | | [...] the MDRD equation recommended by the | [facility] | | National Kidney Disease Education Program. [...] | + + + + + | [facility] | [address] | [place] [address] | | | CLAIRE, CORE | LESLY [...] | + + + + + | [facility] | [address] | [place] [address] | | | SERVICES, LYDIA | LESLY [...] | + + + + + | [facility] | [address] | [place] [address] | | | SERVICES, CORE | LESLY [...] - KWAKU | [address] | [place] | | | [facility] [facility] | [facility] | [address] | | | TESTS | | | [...] [facility] | [address] | [place] [address] | | | SERVICES, CORE | LESLY [...] | + + + + + | [facility] | [address] | [place] [address] | | | SERVICES, CORE | PARK [...] [facility] | [address] | [place] [address] | | | SERVICES, CORE | PARK [...] + + + | [facility] | [address] | [place] [address] | | | SERVICES, CORE | LESLY [...] [facility] | 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 | [place], [place] | | | [facility]ARE | [address] | [address] | | | TESTS | | | [...] AMES | [address] | [place] | | | [facility]ARE | [address] | [address] | | | TESTS | | | [...] | + + + + + | [facility] | [address] | [place] [address] | | | SERVICES, CORE | LESLY [...] DEPT OF | [address] | [place], [place] | | | CARDIOLOGY | [address] | [address] | | + + + + + [...] [facility] | [address] | [place] [address] | | | SERVICES, LYDIA | [address] [...] + + + | [facility] | [address] | [place] [address] | | | SERVICES, CORE | LESLY [...] | + + + + + | [facility] | [address] | [place] [address] | | | SERVICES, CORE | P[address] [...] + + + | [facility] | [address] | [place] [address] | | | SERVICES, CORE | [address] | | | + + + + + ED INFORMATION EXCHANGE (11/06/2015 1:26 PM PDT) + + + + + + | Component | Value | Ref Range | Performed | Pathologist | | | | | At | Signature | + + + + + + | [facility] | [id number] | | [facility] | | | | [id number] | | MEDICAL | | | | [...] | ---- 11/06/2015 | | | 13:25 [facility] [place] [facility] | | | [address]. Referral; Cellulitis 09/28/2015 15:39 [facility] | | | Hospital Emergency -Migraine, [...] -Pain in left lower leg 09/13/2015 14:54 [facility] | | | Hospital Emergency -Unspecified [...] | | | | | | -Other terminal carman (current) | | | drug therapy | | | -Allergy status | | | to penicillin ED VISIT COUNT (1 YR.) Visits Location | | | ------ --------- 1 [facility] | | | [place] 9 [facility] 10 | | | Total Note: Visits indicate total known visits. | | | | | | --- | | + + + + + + + + | Performing | Address | City/State/Zipcode | Phone Number | | Organization | | | | + + + + + | [facility] | [address], | [place], [place] | [phone] | | [employer] | [address] | [address] | | + + + + + [...] | | | oral, ONCE, 1 dose, [facility] 11/08/15 | | PM PDT [...] | | | | ONCE, 1 dose, [facility] 11/08/15 at 1900 | | PM PDT [...]
--- OUTSIDE RECORDS SUMMARY | ~2019-06-01 | XMS | Encounter Summary ---
Demographics + + + | Address | [address] | | | [place] [address] | + + + | Home Phone [...] [place], [place] | | | | | [address] | | + + + + + | Ellie Vang | ECON | Unknown | | + + + + + Care Team Providers + +------+ + | Care Crossing Guard Name | Role | Phone | + [...] | | | | | Healing, | [place], [place] | | | | | | [address] | [address] | | | | | | [place], [place] | Phone: | | | | | | [address] | [phone] | | | | | | Phone: | Fax: | | | | | | [phone] | [phone] | | | | | | Fax: | | | | | | | [phone] | | +--------+--------+ + + + + [...] | | | | | Healing, | [place], [place] | | | | | | [address] | [address] | | | | | | [place], [place] | Phone: | | | | | | [address] | [phone] | | | | | | Phone: | Fax: | | | | | | [phone] | [phone] | | | | | | Fax: | | | | | | | [phone] | | +--------+--------+ + + + + Encounter Details +--------+ + + + + | Date | Type | Department | Care Team | Description | +--------+ + + + + | 10/07/ | Hospital | Radiology/Imaging | | | | 2012 | Encounter | Lab at [facility] [address] | | | | | [address] Mailcode: | | | | | | [facility], | | | | | | Building [address], 3rd | | | | | | Floor [place], [place] | | | | | | [address] | | | | | | [phone] | | | +--------+ + + + [...] Rd | | | | | | [place], [place] | | | | | | [address] | | | | | | [phone] | | | | | | | | +--------+ + + + + | 06/24/ | Surgery | Surgery | Chilo, | OPEN VENTRAL HERNIA | | 2018 | | | MD Jorje [address] | REPAIR WITH | | | | | [address] | BIOLOGICAL MESH | | | | | [place], [place] | | | | | | [address] | | | | | | [phone] | | | | | | | | +--------+ + + + + | 06/30/ | Office | Cardiology | Randell Franks, | | | 2018 | Visit | | [address] | | | | | | [place], [place] | | | | | | [address] | | | | | | [phone] | | | | | | | [...] + + | JUSTINE [facility] | [address] [facility] | [place] [address] | | | OF CARE TESTS | | | | + + + + + documented in this encounter Visit Diagnoses + + | Diagnosis | + + | Hernia Hernia of unspecified site of abdominal cavity without mention of obstruction | | or gangrene | + + documented in this encounter"
--- OUTSIDE RECORDS SUMMARY | ~2019-06-01 | XMS | Encounter Summary ---
Demographics + + + | Address | [address] | | | [place] [address] | + + + | Home Phone [...] + | Katalina Padilla | ECON | [address] | | | | | [place], [place] | | | | | [address] | | + + + + + | Ellie Vang | ECON | Unknown | | + + + + + Care Team Providers + +------+ + | Care Corporate Giving Manager Name | Role | Phone | [...] Visit | Medicine Clinic at | J, BURIAL VAULT MAKER | (Primary Dx); | | | | [facility] | | Dysphagia, | | | | [address] | | unspecified type; | | | | Mail Code: OC8PM | | Hypertension, | | | | [facility] | | unspecified type; | | | | and Healing, | | Hyperlipidemia, | | | | [address] | | unspecified | | | | [place], [place] | | hyperlipidemia type; | | | | [address] | | Diastolic | | | | [phone] | | congestive heart | | | [...] | | Endotracheal Tube; 7; Oral; | EXCEL ANALYST | EXCEL ANALYST | | | Cuffed; 06/23/18; 1542 | [...] encounter Patient Instructions Patient Instructions Tiara Mckeon, BURIAL VAULT MAKER - 06/16/2018 3:15 PM [facility] [...] your procedure. Surgery check-in location: Admitting - [facility], ninth floor [facility] Surgery Check in Time: The Preoperative [...] after office hours, call the [facility] high speed operator at [phone] and ask them to page him or [...] weight loss and diuretic tx, follows with multimedia developer Hypothyroidism stabilized on hormone replacement Type 2 [...] renal failure no electrolyte abnormalities no dialysis Urology/Director Of Counterintelligence: Urologic Conditions: nephrolithiasis Endo: Diabetes: type 2 [...] sublingual Place under tongue once daily. CALCIUM CRB&[id number] ORAL Take 2 tablets by mouth two [...] vagina Allergic rhinitis Anemia Anxiety Bipolar disorder ([facility]) Chronic wound infection of abdomen from 2010 Cough Depression Diverticulitis of colon Dizziness Glaucoma Heart burn Hemorrhoids Hernia of abdominal wall Incisional hernia, incarcerated 2012 Insomnia Irregular periods Kidney stone Leaking of urine Leg sore Lymphedema Morbid obesity with body mass index of 70 and over in adult ([facility]) Myalgia and myositis Nausea Neck pain Numbness Osteoarthritis of knee Palpitations Pneumonia Shortness of breath Staphylococcal infection Stroke ([facility]) TIA (transient ischemic attack) due [...] Dr. Andie Brian Incisional hernia repair 03/01/2015 [facility]/ Dr. Cantu. Primary fascial closure and scar excision Lap gastric byp, and nilesh-en-y gastroenterostomy w/ nilesh limb 150 cm or less 8 [facility] Family history reviewed / updated [...] weight loss and diuretic tx, follows with multimedia developer. Appears comp ensated today. Hypothyroidism stabilized on hormone replacement. Take on DOS as usual Type 2 diabetes, well controlled with A1c 6.1 Thank you for the opportunity to contribute to this patient's care. HILDA Lagos [facility] 4TH FLOOR [address] [facility] [address] I advised the patient regarding [...] Rd | | | | | | [place], [place] | | | | | | [address] | | | | | | [phone] | | | | | | | | +--------+ + + + + | 06/24/ | Surgery | Surgery | Chilo, | OPEN VENTRAL HERNIA | | 2018 | | | MD Demond Recinos [address] | REPAIR WITH | | | | | [address] | BIOLOGICAL MESH | | | | | [place], [place] | | | | | | [address] | | | | | | [phone] | | | | | | | | +--------+ + + + + | 06/30/ | Office | Cardiology | Randell Franks, | | | 2018 | Visit | | [address] | | | | | | [place], [place] | | | | | | [address] | | | | | | [phone] | | | | | | | [...]
--- OUTSIDE RECORDS SUMMARY | ~2019-06-01 | XMS | Clinical Summary ---
Demographics + + + | Address | [address] | | | [place] [address] | + + + | Home Phone [...] + + | Author | [facility] | + + + | Organization | [facility] | + + [...] [place], [place] | | | | | [address] | | + + + + + | Ellie Vang | ECON | Unknown | | + + + + + Care Team Providers + +------+ + | Care River Expedition Guide Name | Role | Phone | + +------+ + | Kenyatta Hylton MD | PCP | | + +------+ + Source Comments NKECHI is fully live on both EpicCare Ambulatory and EpicCare InPatient.[facility] Allergies + + + + + [...] 0 | | | Activ | | [id number] | mouth two times | | | [...] + + + + | 03/02/ | Med Care Manager | Surgery | Keren Allen, | | [...] Rd | | | | | | [place], [place] | | | | | | [address] | | | | | | [phone] | | | | | | | | +--------+ + + + + | 06/24/ | Surgery | Surgery | Chilo, | OPEN VENTRAL HERNIA | | 2018 | | | MD Jorje [address] | REPAIR WITH | | | | | [address] | BIOLOGICAL MESH | | | | | [place], [place] | | | | | | [address] | | | | | | [phone] | | | | | | | | +--------+ + + + + | 06/30/ | Office | Cardiology | Aly Franks, | | | 2018 | Visit | | [address] | | | | | | [place], [place] | | | | | | [address] | | | | | | [phone] | | | | | | | [...] - | | | | | | /[id number] | | [id number]: Qty: 1 on | | | | | | 525 | | 03/01/2018 by Ion Pandey | | | | | | | | MD Vinicius at [facility] | | | | | [...] - | | | | | | /[id number] | | [id number]: Qty: 1 on | | | | | | 173 | | 03/01/2018 by Ion Pandey | | | | | | | | MD Vinicius at [facility] | | | | | [...] AMES | [address] | [place], [place] | | | JUSTNIE DAWN OF JAKY | [address] | [address] | | | TESTS | | | [...] [facility] | [address] | [place] [address] | | | SERVICES, CORE | CLARENCE [...] | | | LABORATORY | | | QATARI | | | SERVICES, | | | [...] MDRD equation recommended by the National | [facility] | | Kidney Disease Education Program. Estimated [...] + + | [facility] | [address] | [place] [address] | | | SERVICES, CORE | CLARENCE [...] containing a nondilated loop of small bowel (1131). LYMPH | | | NODES: Multiple prominent [...] Note | + + | Service Account, Radisantana Res In Interface - 05/13/2019 9:06 PM [...] + + | [facility] | [address] | [place] [address] | | | SERVICES, CORE | PARK [...] | + + + + + | [facility] | [address] | [place] [address] | | | SERVICES, CORE | CLARENCE [...] 5-6 weeks | | | 850 - 40454 6-7 weeks | | | 4000 - [phone] 7-12 weeks | | | 81088 - 090897 12-16 weeks | | | 27772 - 857082 16-29 | | | weeks 1400 - 08084 | | | 29-41 weeks 940 - 81737 | | | This test has not been approved for use as a tumor marker in | | | males or females. | | + + + + + + + + | Performing | Address | City/State/Zipcode | Phone Number | | Organization | | | | + + + + + | [facility] | [address] [facility] | [place] [address] | | | SERVICES, [facility] | [address] | | | + + + + + ED INFORMATION EXCHANGE (05/13/2019 5:14 PM PDT) + + | Specimen | + + | | + + + + + | Narrative | Performed At | + + + | COLLECTIVE?NOTIFICATION?05/13/2019 17:13?DYLAN ROMERO?MRN: | COLLECTIVE | | [id number] Criteria Met Has Guidelines PDMP Security | MEDICAL | | and Safety No recent Security Events currently on file ED Care | TECH[employer]OLOGIES | | [facility] Last Updated: 12/06/18 9:53 AM | | | Care Coordination: Receiving mental health services with | | | [facility].? Please contact [facility] for mental health concerns.? | | | Sarah/Toni Centeno: [phone]? Kishan: [phone].? | | | These are guidelines and the provider should exercise clinical | | | judgment when providing care. Care History Medical/Surgical | | | 05/11/19 12:00 AM [facility] Patient is | | | currently established with [facility]. If patient is seen in | | | the ED during business hours. Please contact [facility] at [facility] | | | Clinic. Care Recommendation: [...] SUDOGEST 30 MG TABLET 5 BERNARDO MARTIN, WATER CONSERVATION SPECIALIST 0 | | | 2019-03-30 SUDOGEST 30 MG TABLET 30 BERNARDO MARTIN, WATER CONSERVATION SPECIALIST 0 | | | 2019-03-20 ALPRAZOLAM 1 [...] (12 mo.) Facility Visits | | | [facility] 1 [facility] 1 | | | [facility] 2 Total 4 Note: Visits indicate total | | | known visits. Recent Emergency Department Visit Summary Date | | | Facility City State Type Diagnoses or Chief Complaint May 13, 2019 | | | [facility] [place] Emergency | | | 10,800. A303 May 10, 2019 [facility] [place] | | | Emergency Nausea with vomiting, unspecified Solitary | | | pulmonary nodule Anxiety disorder, unspecified Ventral | | | hernia without obstruction or gangrene Unspecified abdominal | | | pain Diarrhea, unspecified Allergy status to oth | | | drug/meds/biol subst status Prsnl hx of TIA (TIA), and cereb | | | infrc w/o resid deficits Other intermediate project manager (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 | | | Allergy status to penicillin December 03, 2018 [facility] | | | Health [place]. [place] Emergency RIGHT LEG PAIN DUE TO FALL | | | Strain of unsp musc/tend at lower leg level, right leg, init Jul | | | 27, 2019 [facility] [place] Emergency Other intermediate project manager | | | (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 Upper [...] Service Dates Treva, | | | Rob Consignee/Foreign Legal Consultant Mar 27, 2018 - | | | Current Bernard Hylton MD Internal Medicine: Pulmonary Disease | | | Aug 23, 2018 - Current [employer] Portal This patient has | | | registered at the [facility] Emergency | | | Department For more information visit: | | | [email or web address] | | | [email or web address] PLEASE NOTE: 1. Any care recommendations [...] or completeness of information provided. ? 2019 [employer] | | | OneShift - UserApp | | + + + + + | Procedure Note | + + | Service Account, Rtf Results Inbound - 05/13/2019 5:16 PM PDT Formatting of this | | note might be different from the original.COLLECTIVE?NOTIFICATION?05/13/2019 | | 17:13?DYLAN ROMERO? [facility] Has Guidelines PDMPSecurity and | | SafetyNo recent Security Events currently on fileED Care Guidelines from [facility] [employer] - | | [place] Updated: 12/06/18 9:53 AM Care Coordination:Receiving mental health | | services with [facility].? Please contact [facility] for mental health concerns.? | | Sarah/Toni Centeno: [phone]? Kishan: [phone].?These are guidelines | | and the provider should exercise clinical judgment when providing care.Care | | HistoryMedical/Emcnxjxw02/16/19 12:00 AM [facility] Patient is currently | | established [...] clinical judgment when providing care.08/23/18 12:00 AM [facility] | | Hospital PATIENT HAS A [...] SUDOGEST 30 MG TABLET 5 BERNARDO MARTIN, KALYAN 0 2019-03-30 SUDOGEST 30 MG TABLET 30 [...] 0 E.D. Visit Count (12 mo.)Facility Visits [facility] | | Health 1 [facility] 1 [facility] 2 Total 4 Note: | | Visits indicate total known visits. Recent Emergency Department Visit SummaryDate | | Facility City State Type Diagnoses or Chief Complaint May 13, 2019 [facility] and | | [facility] [place] Emergency 10,800. A303 May 10, 2019 [facility] | | [place] Emergency Nausea with vomiting, unspecified Solitary pulmonary nodule | | Anxiety disorder, unspecified Ventral hernia without obstruction or gangrene | | Unspecified abdominal pain Diarrhea, unspecified Allergy status to oth | | drug/meds/biol subst status Prsnl hx of TIA (TIA), and cereb infrc w/o resid deficits | | Other intermediate project manager (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 Allergy status to penicillin December 03, 2018 | | [facility] [place] Emergency RIGHT LEG PAIN DUE TO FALL Strain of | | unsp musc/tend at lower leg level, right leg, init Aug 22, 2018 [facility]. | | [place] Emergency Other fpc (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 Upper abdominal pain, [...] Fax Service Dates | | Rob Tilley Consignee/Foreign Legal Consultant Mar 27, 2018 - Current | | Bernard Hylton MD Internal Medicine: Pulmonary Disease Aug 23, 2018 - Current | | Tool[employer] Eddi patient has registered at the [facility] | | Emergency Department For more information visit: | | [email or web address] PLEASE | | NOTE: 1. Any care [...] completeness of information | | provided.? 2019 [employer]. - [email or web address] | |Unique Pharmacies 3 | |Benzos 4 | |Opioids 7 | |Long Acting Opioids 0 | | | | | | | |E.D. Visit Count (12 mo.) | |Facility Visits | |[facility] 1 | |[facility] 1 | |[facility] 2 | |Total 4 | |Note: Visits indicate total known visits. | | | |Recent Emergency Department Visit Summary | |Date Facility City State Type Diagnoses or Chief Complaint | |May 13, 2019 [facility] [place] Emergency | | 10,800. A303 | | | |May 10, [address] [facility] Emergency | | Nausea with vomiting, unspecified | | Solitary pulmonary nodule | | Anxiety disorder, unspecified | | Ventral hernia without obstruction or gangrene | | Unspecified abdominal pain | | Diarrhea, unspecified | | Allergy status to oth drug/meds/biol subst status | | Prsnl hx of TIA (TIA), and cereb infrc w/o resid deficits | | Other intermediate project manager (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 | | Allergy status to penicillin | | | |December 03, 2018 [facility]. [place] Emergency | | RIGHT LEG PAIN DUE TO FALL | | Strain of unsp musc/tend at lower leg level, right leg, init | | | |Aug 22, 2018 [facility] 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 | | | |Care Team | |Provider Specialty Phone Fax Service Dates | |Rob Tilley Consignee/Foreign Legal Consultant Mar 27, 2018 - Current | |Bernard Hylton MD Internal Medicine: Pulmonary Disease Aug 23, 2018 - Current | | | |ToolWire Portal | |This patient has registered at the [facility] and [facility]art[facility] t | |For more information visit: [email or web address] | |PLEASE NOTE: | | 1. Any [...] information provided. | | | |? 2019 [employer]. - [email or web address] | + + + + + + + | Performing | Address | City/State/Zipcode | Phone Number | | Organization | | | | + + + + + | [facility] | [address], | [place], [place] | [phone] | | TECHNOLOGIES | [address] | [address] | | + + + + + EGD (04/07/2019 10:53 AM PDT) + + | Specimen | + + | | + + + + + | Narrative | Performed At | + + + | MRN: | [facility] | | [id number] Date: 04/07/2019Patient Name: Dylan Curtis #: | ENDOSCOPY | | [id number] of : 1975CSN: [id number] Type: | | | AmbulatoryRoom: Endo 5Procedure: Upper GI | | | endoscopyIndications: Generalized abdominal pain, Nausea | | | with vomitingProviders: TAL MCNEIL MD | | | (Doctor), BERNARDO BERNARD RN (Nurse), | | | GENECRE BASSULEMAN (Retail Assistant Store Manager)Referring MD: KEREN Kilpatrick | | | RASTA ALLENCNForrest Provider: Medicines: | | | Midazolam 8 [...] | | | The Olympus [id number] Endoscope #[id number] | | | was introduced through the [...] | | + +---------+ + + X-RAY MIRIAM CASTELLON (03/22/2019 11:04 AM PDT) [...] report as now presented. Final signature: Jamel Hauser | | MD Gee 03/22/2019 1:03 PM [...] Note | + + | Service Account, authorGEN In Interface - 03/08/2019 3:33 PM PDT [...] INTERPRETIVE | 70 - 180 nmol/L | [facility] | | | WHOLE | INFORMATION: Vitamin [...] | | | | | determined by [facility] | | | | | | Laboratories. See | | | | | | Compliance Statement B: | | | | | | Scaleogy/CSPerformed | | | | | | by AccessPay,[address] | | | | | | [facility] | | | | | | [phone] | | | | | | [phone].DVS Intelestream. | | | | | | comIsmael [...] [facility] | [address] | [place], [place] | | | UNIV PTH - INTFC | | [address] | | + + + + + [...] [facility] | [address] | [place] [address] | | | SERVICES, CORE | CLARENCE [...] [facility] | [address] | [place] [address] | | | SERVICES, CORE | PARK [...] B: | | | | | | VideoAvatarslab.com/CSPerformed | | | | | | by AccessPay,[address] | | | | | | [address], [place] | | | | | | [address] | | | | | | [phone].aruplab. | | | | | | Ismael [...] [facility] | [address] | [place], [place] | | | UNIV PTH - INTFC | | [address] | | + + + + + [...] [facility] | | | (YEN NOAH) | [facility] [facility],[address] | | REG UNIV | | | SERUM | [place]ia Parson, [facility] | | PTH - INTFC | | | | [address] | | | | | | [phone].DVS Intelestream. | | | | | | Ismael [...] B: | | | | | | VideoAvatarslab.MeeWee/ | | | | + + + + + + + + | Specimen | + + | Blood - Blood | | (substance) | + + + + + + + | Performing | Address | City/State/Zipcode | Phone Number | | Organization | | | | + + + + + | [facility] | [address] | [place], [place] | | | UNIV PTH - INTFC | | [address] | | + + + + + [...] [facility]FC | | | | determined by [employer] | | | | | | iCIMS. See | | | | | | Compliance Statement B: | | | | | | Scaleogy/CSPerformed | | | | | | by AccessPay,[address] | | | | | | [facility],[place] | | | | | | [address] | | | | | | [phone].DVS Intelestream. | | | | | | MeeWeeIsmael MD, | | | | | | [...] [facility] | [address] | [place], [place] | | | UNIV PTH - INTFC | | [address] | | + + + + + [...] + + | [facility] | [address] | [place] [address] | | | SERVICES, SPECIAL | CLARENCE [...] [facility] | | | | | | [facility]S. See | | | | | | Compliance Statement B: | | | | | | DVS Intelestream.MeeWee/CSPerformed | | | | | | by AccessPay,[address] | | | | | | Natalia Parson, [facility] | | | | | | [address] | | | | | | [phone].DVS Intelestream. | | | | | | [facility], Ismael Willis MD, | | [...] [facility] | [address] | [place], [place] | | | UNIV PTH - INTFC | | [address] | | + + + + + [...] | [facility] | [address] [facility] | [place] [address] | | | SERVICES, CORE | CLARENCE [...] [facility] | [address] | [place] [address] | | | SERVICES, CORE | PARK [...] [facility] | [address] | [place] [address] | | | SERVICES, CORE | PARK [...] [facility] | [address] | [place] [address] | | | LYDIA RANGEL | CLARENCE [...] | | | | determined by [employer] | | | | | | Laboratories. See | | | | | | Compliance Statement B: | | | | | | DVS Intelestream.MeeWee/CSPerformed | | | | | | by AccessPay,[address] | | | | | | [facility],[place] | | | | | | [address] | | | | | | [phone].DVS Intelestream. | | | | | | com, [...] [facility] | [address] | [place], [place] | | | UNIV PTH - INTFC | | [address] | | + + + + + [...] | | | + +--------+ +--------+-------+---------+--------+ | PALLETI[employer]ER MEDICAID | PALLETIZER | [id number] | | | | Medica [...] mireya | | | 3 (Home) | [address] | + +--------+ +--------+ + + Advance [...]
--- OUTSIDE RECORDS SUMMARY | ~2019-06-01 | XMS | Encounter Summary ---
Demographics + + + | Address | [address] | | | [place] [address] | + + + | Home Phone [...] [place], [place] | | | | | [address] | | + + + + + | Ellie Vang | ECON | Unknown | | + + + + + Care Team Providers + +------+ + | Care Cocoa Bean Roaster Name | Role | Phone | + +------+ + | Fadi Goodrich DO | PCP | | + +------+ + Encounter Details +--------+------+ + + + | Date | Type | Department | Care Team | Description | +--------+------+ + + + | 11/20/ | Lab | Laboratory at [facility] | | 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 | | [address] | | BMI of 70 and over, | | | | [place], [place] | | adult ([facility]); | | | | [address] | | 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 | | 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 ([facility]); | | | | | | Type 2 diabetes | | | | | | mellitus without | | | | | | complication, with | | | | | | long-term current | | | | | | use of insulin ([facility]) | +--------+------+ + + + [...] Rd | | | | | | [place], [place] | | | | | | [address] | | | | | | [phone] | | | | | | | | +--------+ + + + + | 06/24/ | Surgery | Surgery | Chilo, | OPEN VENTRAL HERNIA | | 2018 | | | MD [address] | REPAIR WITH | | | | | [address] | BIOLOGICAL MESH | | | | | [place], [place] | | | | | | [address] | | | | | | [phone] | | | | | | | | +--------+ + + + + | 06/30/ | Office | Cardiology | Randell Franks, | | | 2018 | Visit | | MD [address] | | | | | | [address] [place], [place] | | | | | | [address] | | | | | | [phone] | | | | | | | [...] [facility]) | results section. | | | | | 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| | 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 ([facility]) | | + +--------+ + + + | VITAMIN B1, WHOLE | Routin | 11/20/2017 | Morbid obesity | Results for this | | BLOOD | e | 10:01 AM | with BMI of 70 and | procedure are in the | | | | PDT | over, adult ([facility]) | results section. | | | | | 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| | 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 ([facility]) | | + +--------+ + + + | VITAMIN D, | Routin | 11/20/2017 | Morbid obesity | Results for this | | 25-HYDROXY, SERUM | e | 10:01 AM | with BMI of 70 and | procedure are in the | | | | PDT | over, adult ([facility]) | results section. | | | | | 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| | 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 ([facility]) | | + +--------+ + + + | COMPLETE METABOLIC | Routin | 11/20/2017 | Morbid obesity | Results for this | | SET | e | 10:01 AM | with BMI of 70 and | procedure are in the | | (NA,K,CL,CO2,BUN,CRE | | PDT | over, adult ([facility]) | results section. | | AT,GLUC,CA,AST,ALT,B | | | Diabetes mellitus | | | MARGIE TOTAL,ALK | | | type 2 without | | | PHOS,ALB,PROT TOTAL) |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 ([facility]) | | + +--------+ + + + | CBC ONLY | Routin | 11/20/2017 | Morbid obesity | Results for this | | | e | 10:01 AM | with BMI of 70 and | procedure are in the | | | | PDT | over, adult ([facility]) | results section. | | [...] [facility]) | results section. | | [...] [facility]) | results section. | | | | | 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| | 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 ([facility]) | | + +--------+ + + + | VITAMIN B-12 | Routin | 11/20/2017 | Morbid obesity | Results for this | | | e | 10:01 AM | with BMI of 70 and | procedure are in the | | | | PDT | over, adult ([facility]) | results section. | | | | | 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| | 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 ([facility]) | | + [...] [facility]) | results section. | | [...] SERVICES, | | | | | | [place] [facility] | | | | | | [...] [facility] | [address] | [place] [address] | | | SERVICES, CENTER FOR | [...] | + + + + + | [facility] | [address] | [place], [place] | | | SERVICES, LIPID | [address] | [address] | | + + + + + [...] | [facility] | | considered for monitoring halfway glycemic control in patients with: | LABORATORY [...] + | [facility] | [address] | [place] [address] | | | SERVICES, SPECIAL | PARK [...] B: | | | | | | cinvolve.Etology.com/CSPerformed | | | | | | by Mobypark,[address] | | | | | | Liliana Martinez, [facility] | | | | | | [address] | | | | | | [phone].cinvolve. | | | | | | com, [...] [facility] | [address] | [place], [place] | | | UNIV PTH - INTFC | | [address] | | + + + + + [...] | | | LABORATORY | | | KITTITIAN | | | SERVICES, | | | [...] | + + + + + | [facility] | [address] [facility] | [place] [address] | | | LYDIA RANGEL | CLARENCE [...] [facility] | [address] | [place] [address] | | | SERVICES, CORE | CLARENCE [...] | + + + + + | [facility] | [address] | [place] [address] | | | SERVICES, CORE | CLARENCE [...] | [facility] | [address] [facility] [facility] | [place] [address] | | | SERVICES, CORE | PARK [...] [facility] | [address] | [place] [address] | | | SERVICES, CORE | PARK [...] [facility] | [address] | [place] [address] | | | SERVICES, LYDIA | CLARENCE [...]
--- OUTSIDE RECORDS SUMMARY | ~2019-06-01 | XMS | Encounter Summary ---
Demographics + + + | Address | [address] | | | [place] [address] | + + + | Home Phone [...] [place], [place] | | | | | [address] | | + + + + + | lElie Vang | ECON | Unknown | | + + + + + Care Team Providers + +------+ + | Care Automatic Splicing Machine Operator Name | Role | Phone [...] + + | 05/13/ | Emergency | [facility] Emergency | Nay Joe | | | 2019 - | | Department [address] MD [address] | | | | | [address] | [address] | | | 05/14/ | | [facility] | [place], [place] | | | 2019 | | [place], [place] | [address] | | | | | [address] | [phone] | | | | | [phone] | | | +--------+ + + + [...] might be different fr om the original. [facility] Discharge Summary Green Surgery Admit Date: [...] by mouth once daily at bedtime. CALCIUM CRB&GFY-B4-CDE15-GENIS ORAL Take 2 tablets by mouth two [...] passing gas, please go directly to the [facility] rgency department to be evaluated. Pain Medications: [...] the prescribed narcotic-opioid (e.g. oxycodone, hydrocodone, Vicodin, Meadow, Percoce t, Dilaudid) as needed. Opioid pain medications may cause constipation, so be sure to take a stool softener if you take an opioid pain medication. FOLLOW-UP: Follow-up with your primary care provider for pain control. Dr. Tiwari's mobile crane operator will contact you to try to find a date for surgery. Follow Up: Future Appointments Provider Department Dept Phone Center 06/27/2019 11:55 AM [facility] PHONE/RN CLIN 3 [facility] at [place] [address] [phone] [facility] 06/30/2019 11:30 AM Aly Franks Cardiology in [facility] Schedule the following appointment(s) when you get home JONES TIWARI MD. Specialty: General Surgery Why: Dr. Tiwari's mobile crane operator will call you to schedule a surgery date. Contact information [address] [place] [address] [place] [address] Kenyatta Hylton MD. Specialty: Family [...] oriented. Grossly intact. Anisa Christopher MD PhD [facility] General Surgery ATTENDING PHYSICIAN STATEMENT I saw the patient and have repeated the pertinent portions of the history and physical exam . I agree with the findings, assessment and plan as documented by the resident. Johana Holloway MD Division of Gastrointestinal and General Surgery [facility] [address] [place] [address] Office: [phone] documented in this e ncounter Discharge Instructions [...] surgery date up as possible and the mobile crane operator will contact you. Elec tronically signed by Anisa Christopehr MD at 05/14/2019 8:35 AM PDT Discharge [...] passing gas, please go directly to the [facility] rgency department to be evaluated. Pain Medications: [...] the prescribed narcotic-opioid (e.g. oxycodone, hydrocodone, Vicodin, Meadow, Percoce t, Dilaudid) as needed. Opioid pain medications may cause constipation, so be sure to take a stool softener if you take an opioid pain medication. FOLLOW-UP: Follow-up with your primary care provider for pain control. Dr. Tiwari's mobile crane operator will contact you to try to [...] | | 0 | | | | CRB&STH-A1-RWE82-GEN | mouth two times | | | [...] [place] | | | | | | [address] | | | | | | [phone] | | | | | | | | +--------+ + + + + | 06/24/ | Surgery | Surgery | Chilo, | OPEN VENTRAL HERNIA | | 2018 | | | MD [address] Recinos | REPAIR WITH | | | | | [address] | BIOLOGICAL MESH | | | | | [place] | | | | | | [address] | | | | | | [phone] | | | | | | | | +--------+ + + + + | 06/30/ | Office | Cardiology | Aly Franks, | | | 2018 | Visit | | [address] | | | | | | [place], [place] | | | | | | [address] | | | | | | [phone] | | | | | | | [...] [facility] | [address] | [place], [place] | | | [place] [facility] | [address] | [address] | | | TESTS | | | [...] [facility] | [address] | [place] [address] | | | SERVICES, CORE | CLARENCE [...] MDRD equation recommended by the National | [facility] | | Kidney Disease Education Program. Estimated [...] | [facility] | [address] | [place] [address] | | | SERVICES, [facility] | [address] | [...] abdomen and pelvis WITH intravenous contrast. | INSU | | HISTORY: Concern for incarcerated hernia [...] complications. These results were discussed with Dr. Mosre in the ED on | | 05/13/2019 [...] | + + + + + | [facility] | [address] | [place] [address] | | | SERVICES, CORE | PARK [...] 5-6 weeks | | | 850 - 57228 6-7 weeks | | | 4000 - 990588 7-12 weeks | | | 91174 - 973527 12-16 weeks | | | 97118 - 216792 16-29 | | | weeks 1400 - 37334 | | | 29-41 weeks 940 - 94536 | | | This test has not been approved for use as a tumor marker in | | | males or females. | | + + + + + + + + | Performing | Address | City/State/Zipcode | Phone Number | | Organization | | | | + + + + + | [facility] | [address] | [place] [address] | | | SERVICES, CORE | PARK [...] | + + + + + | [facility] | [address] [facility] | [place] [address] | | | SERVICES, CORE | CLARENCE [...] | + + + + + | [facility] | [address] | [place] [address] | | | SERVICES, [place] | [address] | | | + + + + + ED INFORMATION EXCHANGE (05/13/2019 5:14 PM PDT) + + | Specimen | + + | | + + + + + | Narrative | Performed At | + + + | COLLECTIVE?NOTIFICATION?05/13/2019 17:13?DYLAN ROMERO?MRN: | [facility] | | [id number] Criteria Met Has Guidelines PDMP Security | MEDICAL | | and Safety No recent Security Events currently on file ED Care | [employer] | | Guidelines from [facility] Last Updated: 12/06/18 9:53 AM | | | Care Coordination: Receiving mental health services with | | | [facility].? Please contact [facility] for mental health concerns.? | | | Sarah/Toni Centeno: [phone]? Kishan: [phone].? | | | These are guidelines and the provider should exercise clinical | | | judgment when providing care. Care History Medical/Surgical | | | 05/11/19 12:00 AM [facility] Patient is | | | currently established with [facility]. If patient is seen in | [...] 08/23/18 12:00 AM | | | [facility] PATIENT HAS A PCP [...] SUDOGEST 30 MG TABLET 5 BERNARDO MARTIN, BARREL BUNG REMOVER AND DUMPER 0 | | | 2019-03-30 SUDOGEST 30 MG TABLET 30 BERNARDO MARTIN, BARREL BUNG REMOVER AND DUMPER 0 | | | 2019-03-20 ALPRAZOLAM 1 [...] (12 mo.) Facility Visits | | | [facility] 1 [facility] 1 | | | [facility] 2 Total 4 Note: Visits indicate total | | | known visits. Recent Emergency Department Visit Summary Date | | | Facility City State Type Diagnoses or Chief Complaint May 13, 2019 | | | [facility] [place] Emergency | | | 10,800. A303 May 10, 2019 [facility] [place] | | | Emergency Nausea with vomiting, unspecified Solitary | | | pulmonary nodule Anxiety disorder, unspecified Ventral | | | hernia without obstruction or gangrene Unspecified abdominal | | | pain Diarrhea, unspecified Allergy status to oth | | | drug/meds/biol subst status Prsnl hx of TIA (TIA), and cereb | | | infrc w/o resid deficits Other exterminator helper termite (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 | | | Allergy status to penicillin December 03, 2018 [facility] | | | Health [place] Emergency RIGHT LEG PAIN DUE TO FALL | | | Strain of unsp musc/tend at lower leg level, right leg, init Jul | | | 2018 [facility] [place] Emergency Other alf | | | (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 Upper abdominal pain, unspecified | | | Bariatric surgery status Allergy status to oth drug/meds/biol | | | subst status Noninfective gastroenteritis and colitis, | | | unspecified Obesity, unspecified Anxiety disorder, | | | unspecified prison (current) use of aspirin Allergy | | | status to penicillin Personal history of pulmonary embolism | | | Recent Inpatient Visit Summary No recorded inpatient visits. | | | Care Team Provider Specialty Phone Fax Service Dates Treva, | | | Rob Cloth Examiner Machine/Usability Engineer Mar 27, 2018 - | | | Current Bernard Hylton MD Internal Medicine: Pulmonary Disease | | | Aug 23, 2018 - Current [employer] This patient has | | | registered at the [facility] Emergency | | | Department For more information visit: | | | [email or web address] | | | [email or web address] PLEASE NOTE: 1. Any care recommendations [...] or completeness of information provided. ? 2019 [employer] | | | [employer] [place]. - [email or web address] | | + + + + + | Procedure Note | + + | Service Account, Rtf Results Inbound - 05/13/2019 5:16 PM PDT Formatting of this | | note might be different from the original.COLLECTIVE?NOTIFICATION?05/13/2019 | | 17:13?DYLAN ROMERO? [facility] Has Guidelines PDMPSecurity and | | SafetyNo recent Security Events currently on fileED Care Guidelines from [facility] - | | [place] Updated: 12/06/18 9:53 AM Care Coordination:Receiving mental health | | services with [facility].? Please contact [facility] for mental health concerns.? | | Sarah/Toni Centeno: [phone]? Kishan: [phone].?These are guidelines | | and the provider should exercise clinical judgment when providing care.Care | | HistoryMedical/Royuslrb60/16/19 12:00 AM [facility] Patient is currently | | established with [facility]. If patient is seen in the ED during business hours. | | Please contact [facility] at [facility].Care Recommendation:This patient has had 5 or [...] clinical judgment when providing care.08/23/18 12:00 AM [facility] | | Hospital PATIENT HAS [...] SUDOGEST 30 MG TABLET 5 BERNARDO MARTIN, BARREL BUNG REMOVER AND DUMPER 0 2019-03-30 SUDOGEST 30 MG TABLET 30 | | BERNARDO MARTIN, BARREL BUNG REMOVER AND DUMPER 0 2019-03-20 ALPRAZOLAM 1 MG TABLET 60 WINSTON JEFFAS 4 0 2019-03-14 | | BELBUCA 600 MCG FILM 58 JEFFREY ORR 0 2019 PHENTERMINE 37.5 MG TABLET 90 | | ALY FRANKS MD 4 0 2019-02-21 ALPRAZOLAM 1 MG TABLET 60 WINSOTN JEFFAS 4 0 2019-02-11 | | BELBUCA [...] E.D. Visit Count (12 mo.)Facility Visits [facility] | | Health [address] [place] [address] 1 [facility] 2 Total 4 Note: | | Visits indicate total known visits. Recent Emergency Department Visit SummaryDate | | Facility City State Type Diagnoses or Chief Complaint May 13, 2019 [facility] | | [facility] [place] Emergency 10,800. A303 May 10, 2019 [facility] | | 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 Emergency RIGHT LEG PAIN DUE TO FALL Strain of | | unsp musc/tend at lower leg level, right leg, init Aug 22, 2018 [facility] | | [place] Emergency Other exterminator helper termite (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 Upper abdominal pain, | | unspecified Bariatric surgery status Allergy status to oth drug/meds/biol subst | | status Noninfective gastroenteritis and colitis, unspecified Obesity, unspecified | | Anxiety disorder, unspecified prison (current) use of aspirin Allergy status | | to penicillin Personal history of pulmonary embolism Recent Inpatient Visit | | SummaryNo recorded inpatient visits. Care TeamProvider Specialty Phone Fax Service Dates | | Rob Tilley Cloth Examiner Machine/Usability Engineer Mar 27, 2018 - Current | | Bernard Hylton MD Internal Medicine: Pulmonary Disease Aug 23, 2018 - Current | | [employer] Eddi patient has registered at the [facility] | | Emergency Department For more information visit: | | [email or web address] PLEASE | | NOTE: 1. Any care [...] to the | | limitations of applicable [employer] Policies. 3. You should consult directly with | | the organization that provided a care guideline or other clinical history with any | | questions about additional information or accuracy or completeness of information | | provided.? 2019 [employer]. - [email or web address] | |[facility] 3 | |Benzos 4 | |Opioids 7 | |Long Acting Opioids 0 | | | | | | | |E.D. Visit Count (12 mo.) | |Facility Visits | |[facility] 1 | |[facility] 1 | |[facility] 2 | |Total 4 | |Note: Visits indicate total known visits. | | | |Recent Emergency Department Visit Summary | |Date Facility City State Type Diagnoses or Chief Complaint | |May 13, 2019 [facility] [place] Emergency | | 10,800. A303 | | | |May 10, 2019 [facility] [place] Emergency | | [...] penicillin | | | |December 03, 2018 [facility]. [place] Emergency | | RIGHT LEG PAIN DUE TO FALL | | Strain of unsp musc/tend at lower leg level, right leg, init | | | |Aug 22, 2018 [facility] [place] Emergency | | Other alf (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 | | Upper abdominal [...] Phone Fax Service Dates | |Rob Tilley Cloth Examiner Machine/Usability Engineer Mar 27, 2018 - Current | |Bernard Hylton MD Internal Medicine: Pulmonary Disease Aug 23, 2018 - Current | | | |[employer] Portal | |This patient has registered at the [facility] Emergency Departmen t | |For more information visit: [email or web address] | |PLEASE NOTE: | | 1. Any care recommendations and other clinical information are provided as guidelines or for historical purposes only, and providers should exercise their own clinical judgment whe n providing care. | | 2. You may only use this information for purposes of treatment, payment or health care o perations activities, and subject to the limitations of applicable [employer] Policies. | | 3. You should consult directly with the organization that provided a care guideline or o ther clinical history with any questions about additional information or accuracy or complet eness of information provided. | | | |? 2019 [employer]. - [email or web address] | + + + + + + + | Performing | Address | City/State/Zipcode | Phone Number | | Organization | | | | + + + + + | [facility] | [address], | [place], [place] | [phone] | | [employer] | [address] | [address] | | + + + + + [...] | | | | ONCE, 1 dose, [facility] 05/13/19 at | | PM PDT [...] | | | | ONCE, 1 dose, [facility] 05/13/19 at | | PM PDT [...] | | | ONCE, 1 dose, [facility] 05/14/19 at | | PM PDT [...]
--- OUTSIDE RECORDS SUMMARY | ~2019-06-01 | XMS | Encounter Summary ---
Demographics + + + | Address | [address] | | | [place] [address] | + + + | Home Phone [...] [place], [place] | | | | | [address] | | + + + + + | Ellie Vang | ECON | Unknown | | + + + + + Care Team Providers + +------+ + | Care Shop Girl Name | Role | Phone | + +------+ + | Kenyatta Cardenas MD | PCP | | + +------+ + Encounter Details +--------+ + + + + | Date | Type | Department | Care Team | Description | +--------+ + + + + | 05/28/ | Phillip | [facility] | Lab, Gi Procedure | | | 2018 | on | [place] [address] | | | | | | [address] Mailcode: | | | | | | OC[facility] | | | | | | Health and Healing, | | | | | | [facility] 2 | | | | | | [place], [place] | | | | | | [address] | | | | | | [phone] | | | +--------+ + + + [...] Rd | | | | | | [place], [place] | | | | | | [address] | | | | | | [phone] | | | | | | | | +--------+ + + + + | 06/24/ | Surgery | Surgery | Chilo, | OPEN VENTRAL HERNIA | | 2019 | | | MD [address] | REPAIR WITH | | | | | [address] | BIOLOGICAL MESH | | | | | [place], [place] | | | | | | [address] | | | | | | [phone] | | | | | | | | +--------+ + + + + | 06/30/ | Office | Cardiology | Randell Franks, | | | 2019 | Visit | | [address] | | | | | | [place], [place] | | | | | | [address] | | | | | | [phone] | | | | | | | | +--------+ + + + + documented as of this encounter Visit Diagnoses Not on filedocumented in this encounter"
--- OUTSIDE RECORDS SUMMARY | ~2019-06-01 | XMS | Encounter Summary ---
Demographics + + + | Address | [address] | | | [place] [address] | + + + | Home Phone [...] [place], [place] | | | | | [address] | | + + + + + | Ellie Vang | ECON | Unknown | | + + + + + Care Team Providers + +------+ + | Care Skidway Worker Name | Role | Phone | [...] | | | 2017 | Event | [facility] | Joann Person MD,PhD | | | | | Admitting Desk | [address] | | | | | Located on the 9 | [facility] [place] | | | | | floor [address] [facility] | [address] | | | | | [address] | [phone] | | | | | [place], [place] | | | | | | [address] | Graham Mckinney, | | | | | | ADULT NURSE PRACTITIONER [address] | | | | | | [address] | | | | | | [place], [place] | | | | | | [address] | | | | | | [phone] | | | | | | | [...] | | Endotracheal Tube; 7; Oral; | ADULT NURSE PRACTITIONER | ADULT NURSE PRACTITIONER | | | Cuffed; 06/23/18; [address] | | | | | | [facility] [place] | | | | | | [address] | | | | | | [phone] | | | | | | | | +--------+ + + + + | 06/24/ | Surgery | Surgery | Chilo | OPEN VENTRAL HERNIA | | 2019 | | | MD [address] | REPAIR WITH | | | | | [address] | BIOLOGICAL MESH | | | | | [place] | | | | | | [address] | | | | | | [phone] | | | | | | | | +--------+ + + + + | 06/30/ | Office | Cardiology | Randell Franks, | | | 2018 | Visit | | [address] | | | | | | [place], [place] | | | | | | [address] | | | | | | [phone] | | | | | | | [...] bed and dolores for RSI. Performed by ADULT NURSE PRACTITIONER | | | YINKA, GRAHAM E | [...]
--- OUTSIDE RECORDS SUMMARY | ~2019-06-01 | XMS | Encounter Summary ---
Demographics + + + | Address | [address] | | | [place] [address] | + + + | Home Phone [...] + | Katalina Padilla | ECON | [address] | | | | | [place], [place] | | | | | [address] | | + + + + + | Ellie Vang | ECON | Unknown | | + + + + + Care Team Providers + +------+ + | Care Director Public Policy Name | Role | Phone | + [...] | | | | | bypass | [place], | Mailcode: | | | | | Nausea and | [place] | [address] [facility] | | | | | vomiting, | [address] | Hospital | | | | | intractabili | Phone: | [place], [place] | | | | | ty of | | [address] | | | | | vomiting not | Fax: | Phone: | | | | | specified, | [phone] | [phone] | | | | | unspecified | | Fax: | | | | | vomiting | | [phone] | | | | | type | [...] | | | | | | CONTRAST OR | | | | | | | CT SCAN OF | | | | | | | ABDOMEN | | | | | | | CONTRAST OR | | | | | | [...] | | | | | bypass | [place], | Mailcode: | | | | | Nausea and | [place] | [facility] | | | | | vomiting, | [address] | for Health | | | | | intractabili | Phone: | and Healing, | | | | | ty of | [phone] | Building 1, | | | | | vomiting not | Fax: | 5th Floor | | | | | specified, | [phone] | [place], [place] | | | | | unspecified | | [address] | | | | | vomiting | | Phone: | | | | | type | | [phone] | | | | | Diarrhea, | [...] | | | | | bypass | [place], | [address] | | | | | Nausea and | [place] | for Health | | | | | vomiting, | [address] | and Healing, | | | | | intractabili | Phone: | Building 2 | | | | | ty of | | [place], [place] | | | | | vomiting not | Fax: | [address] | | | | | specified, | [phone] | Phone: | | | | | unspecified | | [phone] | | | | | vomiting | | Fax: | | | | | type | | [phone] | | | | | Diarrhea, | [...] | | | | | | OR UPPER GI | | | | | [...] | [facility] | | | with THERAPIST OCCUPATIONAL | | hypertension | [address] | [address] | | | | | Right | [address] | [address] | | | | | heart | [facility] [place] | Mailcode: | | | | | failure | [address] | Center for | | | | | ([facility]) Type | Phone: | Health and | | | | | 2 diabetes | [phone] | Healing, | | | | | mellitus | Fax: | Building 2 | | | | | without | [phone] | [facility] [place] | | | | | complication | | [address] | | | | | , with | | Phone: | | | | | long-term | | | | | | | current use | | Fax: | | | | | of insulin | | [phone] | | | | | ([facility]) | | | | | | [...] | Center at [facility] [address] | AGACNP [address] | gastric bypass | | | | [address] | Ave [place], [place] | (Primary Dx); Nausea | | | | Mailcode: Center | [address] | and vomiting, | | | | for Health and | | intractability of | | | | Healing, Building 2 | | vomiting not | | | | [place], [place] | | specified, | | | | [address] | | unspecified vomiting | | | | [phone] | | type; Diarrhea, | | | [...] getting fluids at a local clinic in [place] -I will contact you if further testing is indicated -follow up with once of our surgeons once testing is complete -get some protein de la o--isopure or premier protein de la o. documented in this encounter Progress Notes Melissa Garay RN - 03/01/2019 1:50 PM PDTSpoke with patient's PCP office [phone] and notified them that Infusion unit at [facility] (fax [phone]) requires a provider with privileges there to sign the IV infusion orders. Since Dr. Cardenas is out on maternity leave, SOFI Ulrich will check with provider covering. Infusion order and chart not e faxed to PCP at [phone]. Patient notified. Charli Murillo - 03/01/2019 1:50 [...] rhinitis Anemia Anxiety Bipolar disorder ([facility]) Chronic wound infection of abdomen from 2010 Cough Depression Diverticulitis of colon Dizziness Glaucoma Heart burn Hemorrhoids Hernia of abdominal wall Incisional hernia, incarcerated 2012 Insomnia Irregular periods Kidney stone Leaking of urine Leg sore Lymphedema Morbid obesity with body mass index of 70 and over in adult ([facility]) Myalgia and myositis Nausea Neck pain Numbness Osteoarthritis of knee Palpitations Pneumonia Shortness of breath Staphylococcal infection Stroke ([facility]) TIA (transient ischemic attack) due to Bromocriptine Tinea corporis UTI (urinary tract infection) Past Surgical History Procedure Laterality Date Tonsillectomy and adenoidectomy Appendectomy, open 2010 Umbilical hernia repair 2010 Treatment of ankle fracture with screws remaining Incision and drainage of wound abscess x2 midline transverse wound s/p open appendectomy 2010 Ventral hernia repair 10/2012 Dr. Andie Brian Incisional hernia repair 03/01/2015 [facility]/ Dr. Cantu. Primary fascial closure and scar excision Lap gastric byp, and nilesh-en-y gastroenterostomy w/ nilesh limb 150 cm or less 8 [facility] Social History Socioeconomic History Marital [...] file Gets together: Not on file Attends congregation service: Not on file Active member of club or organization: Not on file Attends meetings of clubs or organizations: Not on file Relationship status: Not on file Other Topics Concern Not on file Social History Narrative Updated 11/09/15 She lives in [place] with her mother and her sister (also her caregiver) lives in an apa rtment/duplex below. She has 2 grandchildren (age 4 and 7) who live with her daughter and son-in-law Her boyfriend lives in [place] HFpEF, DM2, HTN, Sleep Apnea (unable to [...] program here and refer her to our equipment application specialist who also has expertise in physical [...] buccal film, , Disp: , Rfl: CALCIUM CRB&NCI-A1-OCU54-GENIS ORAL, Take 2 tablets by mouth two [...] be administered closer to her home in [place]. LR 1-2 L 3 times weekly, until [...] to plan and will call and/or send [employer] message if any issues. Start time 1422, end time 1455. I spent a total of 33 minutes face to face with this patie nt. Over 50% of visit was in counseling. ALBINA Perrin Bariatric Surgery Nurse Practitioner [facility] | [address] | [place] | [address] | documented in th is encounter Plan [...] Rd | | | | | | [place], [place] | | | | | | [address] | | | | | | [phone] | | | | | | | | +--------+ + + + + | 06/24/ | Surgery | Surgery | Chilo, | OPEN VENTRAL HERNIA | | 2018 | | | MD Jorje [address] | REPAIR WITH | | | | | [address] | BIOLOGICAL MESH | | | | | [place], [place] | | | | | | [address] | | | | | | [phone] | | | | | | | | +--------+ + + + + | 06/30/ | Office | Cardiology | Randell Franks, | | | 2018 | Visit | | [address] | | | | | | [place], [place] | | | | | | [address] | | | | | | [phone] | | | | | | | [...] | + + + + + | [facility] | [address] | [place] [address] | | | SERVICES, CORE | PARK [...] | | | | | determined by [facility] | | | | | | Laboratories. See | | | | | | Compliance Statement B: | | | | | | [employer]/CSPerformed | | | | | | by [facility],[address] | | | | | | [facility] | | | | | | [address] | | | | | | [phone].[facility]. | | | | | | [facility], Ismael Willis MD, | | | [...] [facility] | [address] | [place], [place] | | | UNIV PTH - INTFC | | [address] | | + + + + + [...] [facility] | | | (YEN NOAH) | [facility],[address] | | REG UNIV | | | SERUM | [place] | | PTH - INTFC | | | | [address] | | | | | | [phone]. | | | | | | Ismael [...] B: | | | | | | [employer]CS | | | | + + + + + + + + | Specimen | + + | Blood - Blood | | (substance) | + + + + + + + | Performing | Address | City/State/Zipcode | Phone Number | | Organization | | | | + + + + + | [facility] | [address] | [place], [place] | | | UNIV PTH - INTFC | | [address] | | + + + + + [...] [facility] | [address] | [place] [address] | | | CLAIRE, CORE | PARK [...] | + + + + + | [facility] | [address] [facility] [address] | [place] [address] | | | SERVICES, CORE | PARK [...] | | | | | determined by [facility] | | | | | | Laboratories. See | | | | | | Compliance Statement B: | | | | | | [employer] [place]/CSPerformed | | | | | | by [facility],[address] | | | | | | [facility],[place] | | | | | | [address] | | | | | | [phone].[employer] | | | | | | com, [...] [facility] | [address] | [place], [place] | | | UNIV PTH - INTFC | | [address] | | + + + + + [...] B: | | | | | | [employer] [place]/CSPerformed | | | | | | by [facility],[address] | | | | | | [facility],[place] | | | | | | [address] | | | | | | [phone].[employer]. | | | | | | Ismael [...] [facility] | [address] | [place], [place] | | | UNIV PTH - INTFC | | [address] | | + + + + + [...] | + + + + + | [facility] | [address] | [place] [address] | | | SERVICES, CORE | PARK [...] | | | | | determined by [facility] | | | | | | Laboratories. See | | | | | | Compliance Statement B: | | | | | | [employer] [place]/CSPerformed | | | | | | by [facility],[address] | | | | | | [facility],[place] | | | | | | [address] | | | | | | [phone].[employer]. | | | | | | Smart RenoIsmael MD, | | | | | | [...] [facility] | [address] | [place], [place] | | | UNIV PTH - INTFC | | [address] | | + + + + + [...] [facility] | [address] | [place] [address] | | | SERVICES, CORE | PARK [...] [facility] | [address] | [place] [address] | | | SERVICES, CORE | PARK [...] | + + + + + | [facility] | [address] [facility] [address] | [place] [address] | | | SERVICES, SPECIAL | CLARENCE [...] | + + + + + | [facility] | [address] | [place] [address] | | | SERVICES, CORE | PARK [...] | | | | | determined by [facility] | | | | | | Laboratories. See | | | | | | Compliance Statement B: | | | | | | [employer] [place]/CSPerformed | | | | | | by [facility],[address] | | | | | | Natalia Parson [facility] | | | | | | [address] | | | | | | [phone].[email or web address]. | | | | | | comIsmael [...] [facility] | [address] | [place], [place] | | | UNIV PTH - INTFC | | [address] | | + + + + + [...] | + + + + + | [facility] | [address] | [place] [address] | | | SERVICES, CORE | CLARENCE [...]
--- OUTSIDE RECORDS SUMMARY | ~2019-06-01 | XMS | Encounter Summary ---
Demographics + + + | Address | [address] | | | [place] [address] | + + + | Home Phone [...] [place], [place] | | | | | [address] | | + + + + + | Ellie Vang | ECON | Unknown | | + + + + + Care Team Providers + +------+ + | Care Hogshead Liner Name | Role | Phone | + [...] on | Center at [facility] [address] | CUSTOM TAILOR [address] | | | | | [address] | [facility] 350 | | | | | Mailcode: Center | [place], [place] | | | | | [facility] and | [address] | | | | | [facility] 2 | [phone] | | | | | [place], [place] | | | | | | [address] | | | | | | [phone] | | | +--------+ + + + [...] Rd | | | | | | [place], [place] | | | | | | [address] | | | | | | [phone] | | | | | | | | +--------+ + + + + | 06/24/ | Surgery | Surgery | Chilo, | OPEN VENTRAL HERNIA | | 2018 | | | MD Jorje [address] | REPAIR WITH | | | | | [address] | BIOLOGICAL MESH | | | | | [place], [place] | | | | | | [address] | | | | | | [phone] | | | | | | | | +--------+ + + + + | 06/30/ | Office | Cardiology | Randell Franks, | | | 2018 | Visit | [address] | | | | | | Ave [place], [place] | | | | | | [address] | | | | | | [phone] | | | | | | | | +--------+ + + + + documented as of this encounter Visit Diagnoses Not on filedocumented in this encounter"
--- OUTSIDE RECORDS SUMMARY | ~2019-06-01 | XMS | Encounter Summary ---
[...] [place], [place] | | | | | [address] | | + + + + + | Ellie Vang | ECON | Unknown | | + + + + + Care Team Providers + +------+ + | Care Adult Educator Name | Role | Phone | + [...] [address] | | | | | ([facility]) | [address] | [address] | | | | | Procedures | [place], [place] | [place], [place] | | | | | CONSULT TO | [address] | [address] | | | | | CAR | Phone: | Phone: | | | | | PREVENTATIVE | [phone] | [phone] | | | | | [facility] - | Fax: | Fax: | | | | | LIPIDS | [phone] | [phone] | +--------+--------+ + + + + Reason [...] | | 2 diabetes | [place], | [place], [place] | | | | | mellitus | [place] [address] | [address] | | | | | without | Phone: | Phone: | | | | | complication | [phone] | [phone] | | | | | (HCC) | Fax: | Fax: | | | | | Procedures | [phone] | [phone] | | | | | [place] EST [...] | 2017 | Visit | Preventive at [facility] | [address] | hypertension | | | | [address] | Ave [facility] [place] | (Primary Dx); Right | | | | Mailcode: CH9A | [address] | heart failure (HCC) | | | | [facility] | [phone] | | | | | and Healing, | | | | | | Building 1 | | | | | | [place], [place] | | | | | | [address] | | | | | | [phone] | | | +--------+---------+ + + + [...] 1 tablet by mouth once daily CALCIUM CRB&GOE-K5-VOF86-GENIS ORAL Take 2 tablets by mouth two [...] | Procedure | Surgery | | | 2018 | Pass | | | | +--------+ + + + + | 06/24/ | Hospital | Adult Acute Care | Chilo, | | | 2018 | Encounter | | MD Demond Recinos | | | | | | [address] | | | | | | [place], [place] | | | | | | [address] | | | | | | [phone] | | | | | | | | +--------+ + + + + | 06/24/ | Surgery | Surgery | Chilo, | OPEN VENTRAL HERNIA | | 2018 | | | MD Demond Recinos | REPAIR WITH | | | | | [address] | BIOLOGICAL MESH | | | | | [facility] [place] | | | | | | [address] | | | | | | [phone] | | | | | | | | +--------+ + + + + | 06/30/ | Office | Cardiology | Randell Franks, | | | 2018 | Visit | | MD [address] | | | | | | Ave [facility] [place] | | | | | | [address] | | | | | | [phone] | | | | | | | | +--------+ + + + + documented as of this encounter Visit Diagnoses + + | Diagnosis | + + | Essential hypertension - Primary | + + | Right heart failure (HCC) Congestive heart failure, unspecified | + + documented in this encounter
--- OUTSIDE RECORDS SUMMARY | ~2019-06-01 | XMS | Encounter Summary ---
Demographics + + + | Address | [address] | | | [place] [address] | + + + | Home Phone [...] [place], [place] | | | | | [address] | | + + + + + | Ellie Vang | ECON | Unknown | | + + + + + Care Team Providers + +------+ + | Care Gallery Or Museum Curator Name | Role | Phone | [...] | Pain | Diagnoses | Analisa Georges Relay Adjuster Psych | | | | Management | Morbid | DANIELLE BrunerP | [address] | | | | | obesity with | [address] | | | | | BMI of [address] | [address] | Mailcode: | | | | | and over, | [place], [place] | [facility] Center | | | | | adult (HCC) | [address] | for Health | | | | | Procedures | Phone: | and Healing, | | | | | CONSULT TO | [phone] | Building 1, | | | | | PAIN | Fax: | 15th Floor | | | | | MANAGEMENT | [phone] | [place], [place] | | | | | [place] | | [address] | | | | | PSYCHIATRIC | | Phone: | | | | | DIAGNOSTIC | | [phone] | | | | | EVAL, NO MED | | Fax: | | | | | [facility] [place] | | [phone] | | | | | PSYCH TSTNG [...] | [facility] | | | with LAW ENFORCEMENT INSTRUCTOR | | hypertension | [address] | [address] | | | | | Right | [address] | [address] | | | | | heart | [place], [place] | Mailcode: | | | | | failure | [address] | Center for | | | | | ([facility]) Type | Phone: | Health and | | | | | 2 diabetes | [phone] | Healing, | | | | | mellitus | Fax: | Building 2 | | | | | without | [phone] | [place], [place] | | | | | complication | | [address] | | | | | , with | | Phone: | | | | | long-term | | [phone] | | | | | current use | | Fax: | | | | | of insulin | | [phone] | | | | | ([facility] | | [address] | Ave [place], [place] | adult ([facility]) (Primary | | | | Mailcode: Center | [address] | Dx); Chronic | | | | for Health and | | diastolic heart | | | | Healing, Building 2 | | failure ([facility]); | | | | [place], [place] | | Immobility; Severe | | | | [address] | | muscle | | | | [...] retinopathy | | | | | | ([facility]); | | | | | | Hyperlipidemia, [...] encounter Patient Instructions Patient Instructions Shereen Georges, [facility] - 02/02/2017 9:00 AM PDTPlan: The [...] to your private appointme nt with the sap solution manager consultant. These classes will be scheduled apporoximately 1 month apart to allow time for you to put the teaching into action. Please call [phone] + Labs needed: Pre op: drug screen [...] are done + EKG: Please Have your cnc lathe machine operator do the eval and send it to us + Pre-op Psychological Evaluation: Your referral is at [facility], The Pain Management Office [...] be safely completed. + Sign up for [employer] so that we can communicate easily back and forth Once the above list is completed and copies have been received by our office, we will submi t for insurance authorization then schedule with the surgeon. KAIN De Dios DNP, MIXING AND MOLDING MACHINE OPERATOR Nurse Practitioner for Bariatric Surgery [facility] | [address] | [place], [place] | [address] | documented in this encounter Progress Notes Shereen Georges ACNP - 02/02/2017 9:00 AM PDTFormatting of this note might be different f rom the original. BARIATRIC INITIAL VISIT Provider: Shereen Pinto DNP, KAIN, MIXING AND MOLDING MACHINE OPERATOR Referring Provider: Fadi Goodrich DO [...] t loss. Consults: Cardiology: Dr. Edson Livingston [facility] Measurer Machine: Nickie : [facility] Paula But comes to magen Grain Handler at [facility]: Dr. Zhong for weight loss medication Confucianism or cultural reason you would refuse blood [...] once daily., Disp : , Rfl: CALCIUM CRB&ULU-O2-QAH35-GENIS ORAL, Take 2 tablets by mouth two [...] sister (also her caregiver) lives in an [facility] below. She has 2 grandchildren (age 4 and 7) who live with her daughter and son-in-law Her boyfriend lives in [place] Family History Problem Relation Heart Attack Father [...] extre mity edema, hypertension, hyperlipidemia. Denies CHF, VA, ischemic heart disease, or pulmon nikki hypertension. [...] years without success. She qualifies for medically [facility] weight loss surgery to control co-morbidities. [...] management, and was referred as well to health care legal assistant. Plan: Request that her cnc lathe machine operator clear her, and make recommendations 3. Mammogram: [...] to your private appointme nt with the sap solution manager consultant. These classes will be scheduled apporoximately 1 month apart to allow time for you to put the teaching into action. Please call [phone] + Labs needed: lipids, CBC, CMP, TSH, [...] are done + EKG: Please Have your cnc lathe machine operator do the eval and send it to us + Pre-op Psychological Evaluation: Your referral is at [facility], The Pain Management Office [...] be safely completed. + Sign up for [employer] so that we can communicate easily back and forth Once the above list is completed and copies have been received by our office, we will submi t for insurance authorization then schedule with the surgeon. KAIN De Dios DNP, MIXING AND MOLDING MACHINE OPERATOR Nurse Practitioner for Bariatric Surgery [facility] | [address] | [place], [place] | [address] | documented in this encounter Plan of [...] Rd | | | | | | [place], [place] | | | | | | [address] | | | | | | [phone] | | | | | | | | +--------+ + + + + | 06/24/ | Surgery | Surgery | Chilo, | OPEN VENTRAL HERNIA | | 2019 | | | MD Jorje [address] | REPAIR WITH | | | | | [address] | BIOLOGICAL MESH | | | | | [place], [place] | | | | | | [address] | | | | | | [phone] | | | | | | | | +--------+ + + + + | 06/30/ | Office | Cardiology | Randell Zhong, | | | 2018 | Visit | | [address] | | | | | | [place], [place] | | | | | | [address] | | | | | | [phone] | | | | | | | [...]
--- OUTSIDE RECORDS SUMMARY | ~2019-06-01 | XMS | Encounter Summary ---
Demographics + + + | Address | [address] | | | [place] [address] | + + + | Home Phone [...] [place], [place] | | | | | [address] | | + + + + + | Ellie Vang | ECON | Unknown | | + + + + + Care Team Providers + +------+ + | Care Claims Correspondence Clerk Name | Role | Phone [...] | | | | | Ventral | [address] | [id number] | | | | | hernia | Phone: | [place] | | | | | without | [phone] | [address] | | | | | obstruction | Fax: | [place], | | | | | or gangrene | [phone] | [place] [address] | | | | | Mixed | | Phone: | | | | | hyperlipidem | | [phone] | | | | | ia Diabetes | | Fax: | | | | | mellitus | | [phone] | | | | | type 2 [...] | | | | Mailcode: Center | [address] | Ventral hernia | | | | for Health and | [phone] | without obstruction | | | | Healing, Building 2 | | or gangrene; Mixed | | | | [place], [place] | | hyperlipidemia; | | | | [address] | | 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[phone] | | type 2 without | | [...] to POC and will call or send [employer] message if any issues. documented in this [...] tongue once daily., Disp: , Rfl: CALCIUM CRB&PGT-N6-XRW40-GENIS ORAL, Take 2 tablets by mouth two [...] 70 and over in adult ([facility]) Myalgia and myositis Nausea Neck pain Numbness Osteoarthritis of knee Palpitations Pneumonia Shortness of breath Staphylococcal infection Stroke ([facility]) TIA (transient ischemic attack) due [...] or less 8 [facility] Social History Social History Marital status: Single Spouse name: N/A Number of children: 1 Years of education: N/A Occupational History disabled None Social History Main Topics Smoking status: Former Smoker Smokeless tobacco: Never Used Alcohol use No Drug use: No Sexual activity: Not on file Social History Narrative Updated 11/09/15 She lives in [place] with her mother and her sister (also her caregiver) lives in an apa rtment/duplex below. She has 2 grandchildren (age 4 and 7) who live with her daughter and son-in-law Her boyfriend lives in [place] HFpEF, DM2, HTN, Sleep Apnea (unable [...] program here and refer her to our configuration management specialist who also has expertise in physical activity for evaluation and rec ommendations regarding activity management prior to bariatric surgery. 4) Hypothyroidism: TSH stable, will continue to monitor yearly. Plan: 1) Continue healthy diet and activity as tolerated 2) Continue management of her heart failure by her PCP 3) referral to Edith Hamran regarding physical activity 4) discussed with bariatric [...] and documenting after this visit. Ronna SANTOSP LOCAL TRUCK DRIVER Bariatric Surgery Nurse Practitioner [facility] | [address] | [place], [place] | [address] | documented in this e ncounter Plan [...] [place] | | | | | | [address] | | | | | | [phone] | | | | | | | | +--------+ + + + + | 06/24/ | Surgery | Surgery | Chilo | OPEN VENTRAL HERNIA | | 2018 | | | MD [address] | REPAIR WITH | | | | | [address] | BIOLOGICAL MESH | | | | | [place] | | | | | | [address] | | | | | | [phone] | | | | | | | | +--------+ + + + + | 06/30/ | Office | Cardiology | Randell Franks, | | | 2019 | Visit | | [address] | | | | | | [place], [place] | | | | | | [address] | | | | | | [phone] | | | | | | | | +--------+ + + + + documented as of this encounter Results X-RAY MIRIAM CASTELLON (06/07/2018 9:47 AM PST) + + | Specimen | + + | | + + + + + | Narrative | Performed At | + + + | EXAM: Esophagram with litigation secretary radiograph HISTORY: RYGB 03/01/2018, | [facility] | | vomiting/pain ever since COMPARISON: 04/27/2018 CT TECHNIQUE: | RADIOLOGY VOICE | | Caustic Room Operator radiograph was performed. Single contrast exam of the esophagus, | RECOGNITION 2 | | gastric pouch, and gastrojejunostomy in upright positioning. | | | Radiation dose reduction technique was maximized where appropriate | | | using pulsed fluoroscopy and fluoro-store images. Fluoro Time 57 | | | second(s) FINDINGS: Caustic Room Operator shows stone in the upper pole [...] AM PST EXAM: Esophagram | | with litigation secretary radiograph HISTORY: RYGB 03/01/2018, vomiting/pain ever since COMPARISON: | | 04/27/2018 CT TECHNIQUE: Caustic Room Operator radiograph was performed. Single contrast exam of the | | esophagus, gastric pouch, and gastrojejunostomy in upright positioning. Radiation dose | | reduction technique was maximized where appropriate using pulsed fluoroscopy and | | fluoro-store images. Fluoro Time 57 second(s) FINDINGS:Caustic Room Operator shows stone in the upper | [...] | [facility] | [address] | [place] [address] | | | SERVICES, CORE | CLARENCE [...] + | [facility] | [address] | [place] [address] | | | SERVICES, SPECIAL | PARK [...] | | | | | determined by [employer] | | | | | | Laboratories. See | | | | | | Compliance Statement B: | | | | | | Startpack/CSPerformed | | | | | | by [employer],[address] | | | | | | [facility],[place] | | | | | | [address] | | | | | | [phone].yuilop SL. | | | | | | [facility] hospitalIsmael MD, | | | | | [...] [facility] | [address] | [place], [place] | | | [facility] | | [address] | | + + + + + [...] [facility] | [address] | [place] [address] | | | SERVICES, CORE | PARK [...] [facility] | [address] | [place] [address] | | | SERVICES, CORE | PARK [...] | + + + + + | [facility] | [address] | [place] [address] | | | SERVICES, CORE | PARK [...] [facility] | [address] | [place] [address] | | | SERVICES, CORE | PARK [...] [facility] | [address] | [place] [address] | | | SERVICES, CORE | PARK [...] | + + + + + | [facility] | [address] | [place] [address] | | | SERVICES, LYDIA | CLARENCE [...]
--- OUTSIDE RECORDS SUMMARY | ~2019-06-01 | XMS | Encounter Summary ---
Demographics + + + | Address | [address] | | | [place] [address] | + + + | Home Phone [...] Team Providers + +------+ + | Care Babbitter Name | Role | Phone | + [...] | HA Roldan | | | with INTERNIST | | hypertension | [address] | | | | | Right | [address] | [address] | | | | | heart | [place], [place] | [place], | | | | | failure | [address] | [place] | | | | | ([facility]) Type | Phone: | [address] | | | | | 2 diabetes | [phone] | | | | | | mellitus | Fax: | | | | | | without | [phone] | | | | | | complication | | | | | | | , with | | | | | | | long-term | | | | | | | current use | | | | | | | of insulin | | | | | | | ([facility]) | | | +--------+ + + + + + Encounter Details +--------+---------+ + + + | Date | Type | Department | Care Team | Description | +--------+---------+ + + + | 02/02/ | Office | Digestive Health | [address] | Morbid obesity with | | 2017 | Visit | Center at [facility] [address] | [address] | BMI of 70 and over, | | | | [address] | Lesly Gutiérrez [place], | adult ([facility]) (Primary | | | | Mailcode: Center | [place] [address] | Dx); Type 2 | | | | for Health and |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 | | | | Healing, Building 2 | | without | | | | [place], [place] | | complication, with | | | | [address] | | long-term current | | | | [phone] | | use of insulin | | | | | | ([facility]); Chronic | | | | | | diastolic heart | | | | | | failure ([facility]) | +--------+---------+ + + + [...] of Visit: 10:03 to 10:30 (27 minutes lqkz-ub-qtrh with patient) (1 hour ap point not [...] eat like she should, tries to eat brassiere cup mold cutter things and this does not help. Food [...] post-surgery diet progression. 4. Call or send [employer] message to dietitian with any questions. Contact information was provided. Follow up with dietitian prior to surgery (take 2 Weight management classes as part of 6 mo [facility] supervised diet). [address], [facility] B[facility] [phone] documented in this enco unter Plan of [...] Rd | | | | | | [place], [place] | | | | | | [address] | | | | | | [phone] | | | | | | | | +--------+ + + + + | 06/24/ | Surgery | Surgery | Chilo, | OPEN VENTRAL HERNIA | | 2019 | | | MD Jorje [address] | REPAIR WITH | | | | | [address] | BIOLOGICAL MESH | | | | | [place], [place] | | | | | | [address] | | | | | | [phone] | | | | | | | | +--------+ + + + + | 06/30/ | Office | Cardiology | Randell Franks, | | | 2019 | Visit | | [address] | | | | | | [place], [place] | | | | | | [address] | | | | | | [phone] | | | | | | | | +--------+ + + + + documented as of this encounter Procedures + +--------+ + + + | Procedure Name | Priori | Date/Time | Associated Diagnosis | Comments | | | ty | | | | + +--------+ + + + | AK MNT RE-ASSESSMNT | Routin | 02/02/2017 | Morbid obesity | | | X15MIN | e | 12:04 PM | with BMI of 70 and | | | | | PDT | over, adult ([facility]) | | | | | | Type 2 diabetes | | | | | | mellitus without | | | | | | complication, with | | | | | | long-term current | | | | | | use of insulin ([facility]) | | | | | | Chronic diastolic | | | | | | heart failure ([facility]) | | + +--------+ + + + documented in this encounter Visit Diagnoses + + | Diagnosis | + + | Morbid obesity with BMI of 70 and over, adult ([facility]) - Primary | + + | Type 2 diabetes mellitus without complication, with long-term current use of insulin | | (HCC) | + + | Chronic diastolic heart failure (HCC) Chronic diastolic heart failure | + + documented in this encounter
--- OUTSIDE RECORDS SUMMARY | ~2019-06-01 | XMS | Encounter Summary ---
Demographics + + + | Address | [address] | | | [place] [address] | + + + | Home Phone [...] [place], [place] | | | | | [address] | | + + + + + | Ellie Vang | ECON | Unknown | | + + + + + Care Team Providers + +------+ + | Care Railroad Brake Repairer Name | Role | Phone | [...] | HA Roldan | | | with ACCOUNTING MANAGER | | hypertension | [address] | | | | | Right | [address] | [address] | | | | | heart | [place], [place] | [place], | | | | | failure | [address] | [place] | | | | | ([facility]) Type | Phone: | [phone] | | | | | 2 diabetes | [phone] | | | | | | mellitus | Fax: | | | | | | without | [phone] | | | | | | complication | | | | | | | , with | | | | | | | long-term | | | | | | | current use | | | | | | | of insulin | | | | | | | ([facility]) | | | +--------+ + + + [...] | | | [address] | [facility] [facility] [address] | (Primary Dx); | | | | Mailcode: Center | [place], [place] | 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[facility] and | [address] | 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, 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) | | | | [place], [place] | | | | | | [address] | | | | | | [phone] | | | +--------+---------+ + + + [...] Follow-Up Patient referred by: Randell Franks MD [address] [place] [address] Documented time of visit: 2:36pm to 2:49 (13 minutes owme-jk-rbqb with patient) Surgery: Gastric Bypass Date of [...] Medications since surgery: oral - appt with accounts payable bookkeeper on the 9th Testing blood glucose: 92 [...] beef, cream of wheat, cream of mushroom, armenian yogurt Fluid choices: water Supplementation: Flinstones, iron, [...] multivitamin & mineral (with iron) supplement, 2/day -6108-9246 mg calcium citrate with vitamin D/day (take in divided doses, not within 2 hour s of multivitamin or iron supplement) -500 mcg/day sublingual B12 supplement (or monthly injections) Continued to reinforce importance of mindful eating. Continue to increase physical activity. Follow up in 3 months or earlier as needed. Tejas Cevallos RD, LD Pager # [phone] signed by Tejas Cevallos RD at 05/27/2018 [...] Rd | | | | | | [place], [place] | | | | | | [address] | | | | | | [phone] | | | | | | | | +--------+ + + + + | 06/24/ | Surgery | Surgery | Chilo, | OPEN VENTRAL HERNIA | | 2018 | | | MD [address] | REPAIR WITH | | | | | [address] | BIOLOGICAL MESH | | | | | [place], [place] | | | | | | [address] | | | | | | [phone] | | | | | | | | +--------+ + + + + | 06/30/ | Office | Cardiology | Randell Franks, | | | 2019 | Visit | | [address] | | | | | | [place], [place] | | | | | | [address] | | | | | | [phone] | | | | | | | | +--------+ + + + + documented as of this encounter Procedures + +--------+ + + + | Procedure Name | Priori | Date/Time | Associated Diagnosis | Comments | | | ty | | | | + +--------+ + + + | MD MNT RE-ASSESSMNT | Routin | 05/27/2018 | [...]
--- OUTSIDE RECORDS SUMMARY | ~2019-06-01 | XMS | Encounter Summary ---
Demographics + + + | Address | [address] | | | [place] [address] | + + + | Home Phone [...] [place], [place] | | | | | [address] | | + + + + + [...] examination | | 2018 | Visit | [facility] at | DNP,ANP [address] | (Primary Dx) | | | | [facility] | [address] | | | | | [address] | [place], [place] | | | | | Mail Code: OC8PM | [address] | | | | | [facility] | [phone] | | | | | and Healing, | | | | | | Building 2 | | | | | | [place], [place] | | | | | | [address] | | | | | | [phone] | | | +--------+---------+ + + + [...] or walk. [facility] Surgery Check in [...] hours, call the [facility] dewaterer operator at [phone] and ask them to page him or h er. documented in this encounter Progress Notes Carlyle Dejesus MA - 02/22/2018 1:10 PM PDTVenipuncture performed in clinic, blood griselda ple obtained from Right hand site 18 4:52 PM Gay Palm DNP,ANP - 02/22/2018 1:10 PM PDTFormatting of this note migh t be different from the original. PREOPERATIVE CONSULT NOTE Author: Gay oHff DNP,ANP Referring Physician: Ion Pandey MD Primary [...] d function per TTE ( 02/16/2017) from [facility]: Improved and stable. T2DM - controlled with [...] renal failure no electrolyte abnormalities no dialysis Urology/Emergency Department: Within Defined Limits except as noted below [...] mg by mouth two times daily. CALCIUM CRB&HYY-O3-JYS00-GENIS ORAL Take 2 tablets by mouth two [...] Dr. Andie Brian Incisional hernia repair 03/01/2015 [facility]/ Dr. Cantu. Primary fascial closure and [...] 98ms, QTC 460ms, TTE ( 02/16/2017) - [employer] System 1. Overall left ventricular systolic function is normal with, an EF between 60 - 65 %. 2. The right ventricle is normal in size and function. 3. No significant valvular abnormalities are noted. 4. In comparison to the previous (technically difficult) echocardiographic study done 01/01, no signfiicant changes are noted. TTE (02/17/2016) - [employer] Conclusions 1. There is normal left ventricular [...] and resp iratory change. TTE (11/07/2015) - [facility] Final Impressions: 1. The interpretation of [...] d function per TTE ( 02/16/2017) form [facility]. Improved and stable. - Confirmed with Dr. Ino Pandey and states, "I can perform it [...] Advised to bring her own apparatus for [facility]. GERD - On omeprazole. Chronic [...] to this patient's care. Gay Hoff, ERENDIRA,ANP [facility] P[facility] PREOPERATIVE MEDICINE [facility] 4TH FLOOR [address] [facility] [address] I spent time (45 minutes, [...] Rd | | | | | | [place], [place] | | | | | | [address] | | | | | | [phone] | | | | | | | | +--------+ + + + + | 06/24/ | Surgery | Surgery | Chilo, | OPEN VENTRAL HERNIA | | 2018 | | | MD [address] | REPAIR WITH | | | | | [address] | BIOLOGICAL MESH | | | | | [place], [place] | | | | | | [address] | | | | | | [phone] | | | | | | | | +--------+ + + + + | 06/30/ | Office | Cardiology | Randell Franks, | | | 2018 | Visit | | MD [address] | | | | | | Ave [place], [place] | | | | | | [address] | | | | | | [phone] | | | | | | | [...] + +--------+ + + + | OK COLLECTION VENOUS | Routin | 02/22/2018 | [...] [facility] | [address] | [place] [address] | | | SERVICES, CORE | CLARENCE [...] LABORATORY | [address] | [place] [address] | | | SERVICES, | [address] [...] | [facility] | [address] | [place] [address] | | | SERVICES, | [address] [...] | [facility] | | considered for monitoring long-term glycemic control in patients with: | LABORATORY [...] [facility] | [address] | [place] [address] | | | SERVICES, SPECIAL | CLARENCE [...] [facility] | [address] | [place] [address] | | | CLAIRE, LYDIA | CLARENCE [...] DEPT OF | [address] | [place], [place] | | | CARDIOLOGY | [address] | [address] | | + + + + + documented in this encounter Visit Diagnoses + + | Diagnosis | + + | Preop examination - Primary Preoperative examination, unspecified | + + documented in this encounter
--- OUTSIDE RECORDS SUMMARY | ~2019-06-01 | XMS | Encounter Summary ---
Demographics + + + | Address | [address] | | | [place] [address] | + + + | Home Phone [...] [place], [place] | | | | | [address] | | + + + + + | Ellie Vang | ECON | Unknown | | + + + + + Care Team Providers + +------+ + | Care Color Card Maker Name | Role | Phone | [...] | | | [address] | [place], [place] | | | | | Mailcode: [id number] | [address] | | | | | [facility] | [phone] | | | | | [address] [place], [place] | | | | | | [address] | | | | | | [phone] | | | +--------+---------+ + + + [...] Dr. Andie Brian Incisional hernia repair 02/2015 [facility]/ Dr. Cantu PHYSICAL EXAMINATION: BP 133/63 | [...] GENERAL SURGERY AT [facility] [address] [facility] Mailcode: [address] [address] documented in this encounter Plan [...] Rd | | | | | | [place], [place] | | | | | | [address] | | | | | | [phone] | | | | | | | | +--------+ + + + + | 06/24/ | Surgery | Surgery | Chilo, | OPEN VENTRAL HERNIA | | 2018 | | | MD [address] | REPAIR WITH | | | | | [address] | BIOLOGICAL MESH | | | | | [place], [place] | | | | | | [address] | | | | | | [phone] | | | | | | | | +--------+ + + + + | 06/30/ | Office | Cardiology | Randell Franks, | | | 2019 | Visit | | MD [address] | | | | | | Ave [place], [place] | | | | | | [address] | | | | | | [phone] | | | | | | | | +--------+ + + + + documented as of this encounter Visit Diagnoses + + | Diagnosis | + + | Incarcerated incisional hernia - Primary Incisional hernia with obstruction | + + documented in this encounter"
--- OUTSIDE RECORDS SUMMARY | ~2019-06-01 | XMS | Encounter Summary ---
Demographics + + + | Address | [address] | | | [place] [address] | + + + | Home Phone [...] [place], [place] | | | | | [address] | | + + + + + | Ellie Vang | ECON | Unknown | | + + + + + Care Team Providers + +------+ + | Care Sensitizer Name | Role | Phone | + [...] Hospital | | | | | | [facility], | [place], [place] | | | | | | Building 2 | [address] | | | | | | [place], [place] | Phone: | | | | | | [address] | [phone] | | | | | | Phone: | Fax: | | | | | | [phone] | [phone] | | | | | | Fax: | | | | | | | [phone] | | +--------+--------+ + + + + [...] | | | without | SURGICAL | [facility] | | | | | mention of | CLINIC [address] | [address] [place], | | | | | obstruction | [address] | [place] | | | | | or gangrene | AVE | [address] | | | | | | [place], | Phone: | | | | | | [place] [address] | [phone] | | | | | | Phone: | Fax: | | | | | | [phone] | [phone] | | | | | | Fax: | | | | | | | [phone] | | +--------+--------+ + + + + [...] | | | | Mailcode: Center | [place], [place] | | | | | [facility] and | [address] | | | | | [facility], [facility] 2 | [phone] | | | | | [place], [place] | | | | | | [address] | | | | | | [phone] | | | +--------+---------+ + + + [...] colonoscopy), but a [place] [facility] mentioned this was probably an incisional [...] issues. 2. Optimally will need coordination for [facility] Medicaid & [facility] Bariatric program for wt loss. 3. [...] material. 4. Continue to meet with her City Planning Aide in the outpatient setting for diet and [...] has been instructed to f/u w/ her engineer station mainline for a strict diet of <1000 kcal/d [...] teaching. Howie Faria MD MIS/Bariatric Fellow, Pager [phone] [facility] Attending provider: Hernandez Brian MD documented [...] Rd | | | | | | [place], [place] | | | | | | [address] | | | | | | [phone] | | | | | | | | +--------+ + + + + | 06/24/ | Surgery | Surgery | Chilo, | OPEN VENTRAL HERNIA | | 2018 | | | MD [address] | REPAIR WITH | | | | | [address] | BIOLOGICAL MESH | | | | | [place], [place] | | | | | | [address] | | | | | | [phone] | | | | | | | | +--------+ + + + + | 06/30/ | Office | Cardiology | Tiny Randell, | | | 2018 | Visit | | [address] | | | | | | [place], [place] | | | | | | [address] | | | | | | [phone] | | | | | | | [...]
--- OUTSIDE RECORDS SUMMARY | ~2019-06-01 | XMS | Encounter Summary ---
Demographics + + + | Address | [address] | | | [place] [address] | + + + | Home Phone [...] [place], [place] | | | | | [address] | | + + + + + | Ellie Vang | ECON | Unknown | | + + + + + Care Team Providers + +------+ + | Care Packing Machine Can Feeder Name | Role | Phone | [...] Morbid | | 2018 | Visit | [place] [facility] [address] | obesity ([facility]), BMI | | | | [address] | [address] | 88 (Primary Dx); | | | | Mailcode: [place] | [place], [place] | Type 2 diabetes | | | | [employer] and | [address] | mellitus without | | | | Healing, Building 2 | | complication, with | | | | [place], [place] | | long-term current | | | | [address] | | use of insulin | | | | [phone] | | ([facility]); S/P gastric | | | | [...] Follow-Up Patient referred by: [place] [address] Documented time of visit: 1:30 to 2:00 (30 minutes hlmc-ci-utef with patient) Surgery: Gastric Bypass Date of [...] multivitamin & mineral (with iron) supplement, 2/day -3378-3867 mg calcium citrate with vitamin D/day (take [...] in [address],LD Pager# [phone] Phone: [phone] documented in this en counter Plan of [...] [place] | | | | | | [address] | | | | | | [phone] | | | | | | | | +--------+ + + + + | 06/24/ | Surgery | Surgery | Chilo | OPEN VENTRAL HERNIA | | 2018 | | | MD [address] | REPAIR WITH | | | | | [address] | BIOLOGICAL MESH | | | | | [place] | | | | | | [address] | | | | | | [phone] | | | | | | | | +--------+ + + + + | 06/30/ | Office | Cardiology | Randell Franks, | | | 2019 | Visit | | [address] | | | | | | [place], [place] | | | | | | [address] | | | | | | [phone] | | | | | | | [...]
--- OUTSIDE RECORDS SUMMARY | ~2019-06-01 | XMS | Encounter Summary ---
Demographics + + + | Address | [address] | | | [place] [address] | + + + | Home Phone [...] [place], [place] | | | | | [address] | | + + + + + | Ellie Vang | ECON | Unknown | | + + + + + Care Team Providers + +------+ + | Care Salon Assistant Name | Role | Phone | [...] | | | | | | [place] [facility] | | | | | | | [employer] and | | | | | | | Healing, | | | | | | | Building [address] | | | | | | | [place], [place] | | | | | | | [address] | | | | | | | Phone: | | | | | | | [phone] | | | | | | | Fax: | | | | | | | [phone] | +--------+--------+ + + + + Encounter [...] | | [address] | Ave [place], [place] | adult (HCC) (Primary | | | | Mailcode: Center | [address] | Dx); Vitamin D | | | | for Health and | | deficiency disease; | | | | Healing, Building 2 | | Intertriginous | | | | [place], [place] | | candidiasis; | | | | [address] | | Diabetes mellitus | | | [...] Psychological Evaluation: If your referral is at [facility], pain management will call irma riggs [...] the time. If your referral is at [facility], they will call y ou in the next week to schedule. She will arrange 8. Nephrology Consult: Please call [facility] [employer] ([phone]) and have them send you a urine specimen container. You will need to discuss your kidney stone risk with a nephrology provid er prior to proceeding with gastric bypass. If your referral is at [facility], they will call you in the [...] at the same time: betsy Feldman RN, [facility]- Nurse Practitioner for Bariatric Surgery [facility] | [address] | [place], [place] | [address] | Potential Contraindications to Bariatric Surgery Age [...] other providers does not guarantee that the [facility] Bariatric Surger y program will deem you a surgical candidate. documented in this encounter Progress Notes Shereen Pinto ACNP - 06/16/2013 1:28 PM PSTFormatting of this note might be different fro m the original. BARIATRIC INITIAL VISIT Provider: Shereen Pinto DNP, DANIELLEP, SUPERVISOR [employer]UR[employer] Referring Provider: Dr. Fadi Goodrich, [place] [phone] Reason for Requested Consultation: Initial evaluation for bariatric surgery. Elzbieta Cristina is interested in Frandy en y alfredo tomeka bypass. The pt is here With her sister. Following surgery her mother and sister will care for her, she will Stay in [place] after surgery so that she is close by. She lives in [place]. They have few stairs to get into [...] recently gained weight, she met with our research home economist today, she has been making poor food [...] none Use of Redux or Phen/fen: no Restorationism or cultural reason you would refuse blood [...] as well , hypertension, hyperlipidemia. Denies CHF, NH, ischemic heart disease, DVT/PE, or pulmonary hypertension. [...] the therapy. 8. Nephrology Consult: Please call [employer] ([phone]) and have them send you a urine specimen container. You will need to discuss your kidney stone risk with a nephrology provid er prior to proceeding with gastric bypass. If your referral is at [facility], they will call you in the next week to schedule. You are at increased risk of renal stones after surgery, with your history of stone, we want to check of oxalate in your urine. You will need a referral to a casing cleaner If your level is elevated. 9. See [...] as possible Shereen Pinto DNP ACNP, SUPERVISOR SHE[employer]URING Nurse Practitioner for Bariatric Surgery [facility] | [address] | [place], [place] | [address] | Potential Contraindications to Bariatric Surgery Age [...] other providers does not guarantee that the [facility] Bariatric Surger y program will deem [...] | | | | | | [place], [place] | | | | | | [address] | | | | | | [phone] | | | | | | | | +--------+ + + + + | 06/24/ | Surgery | Surgery | Chilo | OPEN VENTRAL HERNIA | | 2018 | | | MD [address] | REPAIR WITH | | | | | [address] | BIOLOGICAL MESH | | | | | [place], [place] | | | | | | [address] | | | | | | [phone] | | | | | | | | +--------+ + + + + | 06/30/ | Office | Cardiology | Randell Franks, | | | 2019 | Visit | | [address] | | | | | | [place], [place] | | | | | | [address] | | | | | | [phone] | | | | | | | [...] at | | | | | | [email or web address] | | | | | | [...] | | | | | Liliana Martinez, [facility],[place] | | | | | | [address] | | | | | | [phone]. | | | | | | com, [...] at | | | | | | [employer] [facility] | | | | | | developed and | | | | | | characteristics | | | | | | determined by | | | | | | [employer]. See | | | | | | Compliance Statement B: | | | | | | [employer]CS | | | | + + + + + + + + | Specimen | + + | Blood - Blood | + + + + + + + | Performing | Address | City/State/Zipcode | Phone Number | | Organization | | | | + + + + + | [facility] | [address] | [place], [place] | | | [facility] | | [address] | | + + + + + [...]
--- OUTSIDE RECORDS SUMMARY | ~2019-06-01 | XMS | Encounter Summary ---
Demographics + + + | Address | [address] | | | [place] [address] | + + + | Home Phone [...] [place], [place] | | | | | [address] | | + + + + + | Ellie Vang | ECON | Unknown | | + + + + + Care Team Providers + +------+ + | Care Rn Acute Dialysis Name | Role | Phone | + [...] the | | | | | | [facility] [address] [facility] | | | | | | [facility] | | | | | | [place], [place] | | | | | | [address] | | | +--------+ + + + [...] Rd | | | | | | [place], [place] | | | | | | [address] | | | | | | [phone] | | | | | | | | +--------+ + + + + | 06/24/ | Surgery | Surgery | Chilo | OPEN VENTRAL HERNIA | | 2018 | | | MD [address] | REPAIR WITH | | | | | [address] | BIOLOGICAL MESH | | | | | [place], [place] | | | | | | [address] | | | | | | [phone] | | | | | | | | +--------+ + + + + | 06/30/ | Office | Cardiology | Randell Franks, | | | 2019 | Visit | | [address] | | | | | | [place] | | | | | | [address] | | | | | | [phone] | | | | | | | | +--------+ + + + + documented as of this encounter Visit Diagnoses Not on filedocumented in this encounter"
--- OUTSIDE RECORDS SUMMARY | ~2019-06-01 | XMS | Encounter Summary ---
Demographics + + + | Address | [address] | | | [place] [address] | + + + | Home Phone [...] [place], [place] | | | | | [address] | | + + + + + | Ellie Vang | ECON | Unknown | | + + + + + Care Team Providers + +------+ + | Care Director Alumni Relations Name | Role | Phone | + +------+ + | Fadi Goodrich DO | PCP | | + +------+ + Encounter Details +--------+ + + + + | Date | Type | Department | Care Team | Description | +--------+ + + + + | 08/16/ | Abstract | Digestive Health | Kathy Feldman, | | | 2013 | | Center at [facility] [address] | [address] [place] | | | | | [address] | [facility] [address] | | | | | Mailcode: Center | [place], [place] | | | | | [facility] and | [address] | | | | | [facility] 2 | [phone] | | | | | [place], [place] | | | | | | [address] | | | | | | [phone] | | | +--------+ + + + [...] Rd | | | | | | [place], [place] | | | | | | [address] | | | | | | [phone] | | | | | | | | +--------+ + + + + | 06/24/ | Surgery | Surgery | Chilo | OPEN VENTRAL HERNIA | | 2018 | | | MD Jor[address] | REPAIR WITH | | | | | [address] | BIOLOGICAL MESH | | | | | [place], [place] | | | | | | [address] | | | | | | [phone] | | | | | | | | +--------+ + + + + | 06/30/ | Office | Cardiology | Randell Franks, | | | 2018 | Visit | | [address] | | | | | | Ave [place], [place] | | | | | | [address] | | | | | | [phone] | | | | | | | | +--------+ + + + + documented as of this encounter Visit Diagnoses Not on filedocumented in this encounter"
--- OUTSIDE RECORDS SUMMARY | ~2019-06-01 | XMS | Encounter Summary ---
Demographics + + + | Address | [address] | | | [place] [address] | + + + | Home Phone [...] + | Katalina Padilla | ECON | [address] | | | | | [place], [place] | | | | | [address] | | + + + + + | Ellie Vang | ECON | Unknown | | + + + + + Care Team Providers + +------+ + | Care End Stapler Name | Role | Phone | + +------+ + | Fadi Goodrich DO | PCP | | + +------+ + Encounter Details +--------+ + + + + | Date | Type | Department | Care Team | Description | +--------+ + + + + | 02/15/ | Abstract | Digestive Health | Hernandez Brian, | | | 2012 | | Center at [facility] [address] | MD [address] | | | | | [address] | [facility] | | | | | Mailcode: Center | [place], [place] | | | | | [facility] and | [address] | | | | | [facility] 2 | [phone] | | | | | [place], [place] | | | | | | [address] | | | | | | [phone] | | | +--------+ + + + [...] Rd | | | | | | [place], [place] | | | | | | [address] | | | | | | [phone] | | | | | | | | +--------+ + + + + | 06/24/ | Surgery | Surgery | Chilo, | OPEN VENTRAL HERNIA | | 2018 | | | MD Jorje [address] | REPAIR WITH | | | | | [address] | BIOLOGICAL MESH | | | | | [facility] [place] | | | | | | [address] | | | | | | [phone] | | | | | | | | +--------+ + + + + | 06/30/ | Office | Cardiology | Randell Franks, | | | 2018 | Visit | | [address] | | | | | | [place] [facility] [place] | | | | | | [address] | | | | | | [phone] | | | | | | | | +--------+ + + + + documented as of this encounter Visit Diagnoses Not on filedocumented in this encounter"
--- OUTSIDE RECORDS SUMMARY | ~2019-06-01 | XMS | Encounter Summary ---
Demographics + + + | Address | [address] | | | [place] [address] | + + + | Home Phone [...] [place], [place] | | | | | [address] | | + + + + + | Ellie Vang | ECON | Unknown | | + + + + + Care Team Providers + +------+ + | Care Wrapper Sorter Name | Role | Phone | [...] + | 03/03/ | Documentati | [facility] | Lab, Gi Procedure | Medical Records | | 2019 | on | [address] | | Review | | | | [address] Mailcode: | | | | | | [address] [facility] | | | | | | Health and Healing, | | | | | | Building 2 | | | | | | [place], [place] | | | | | | [address] | | | | | | [phone] | | | +--------+ + + + [...] | | | | | | [place], [place] | | | | | | [address] | | | | | | [phone] | | | | | | | | +--------+ + + + + | 06/24/ | Surgery | Surgery | Chilo, | OPEN VENTRAL HERNIA | | 2018 | | | MD [address] | REPAIR WITH | | | | | [address] | BIOLOGICAL MESH | | | | | [place], [place] | | | | | | [address] | | | | | | [phone] | | | | | | | | +--------+ + + + + | 06/30/ | Office | Cardiology | Randell Franks, | | | 2018 | Visit | | [address] | | | | | | [place], [place] | | | | | | [address] | | | | | | [phone] | | | | | | | | +--------+ + + + + documented as of this encounter Visit Diagnoses Not on filedocumented in this encounter"
--- OUTSIDE RECORDS SUMMARY | ~2019-06-01 | XMS | Encounter Summary ---
Demographics + + + | Address | [address] | | | [place] [address] | + + + | Home Phone [...] [place], [place] | | | | | [address] | | + + + + + | Ellie Vang | ECON | Unknown | | + + + + + Care Team Providers + +------+ + | Care Stake Driver Name | Role | Phone | + +------+ + | Fadi Goodrich DO | PCP | | + +------+ + Encounter Details +--------+ + + + + | Date | Type | Department | Care Team | Description | +--------+ + + + + | 02/09/ | Abstract | Digestive Health | Clinic, Surgery | | | 2016 | | [place] [address] [address] | | | | | | [address] | | | | | | Mailcode: [place] | | | | | | [facility] and | | | | | | [facility] 2 | | | | | | [place], [place] | | | | | | [address] | | | | | | [phone] | | | +--------+ + + + [...] Rd | | | | | | [facility] [place] | | | | | | [address] | | | | | | [phone] | | | | | | | | +--------+ + + + + | 06/24/ | Surgery | Surgery | Chilo, | OPEN VENTRAL HERNIA | | 2018 | | | MD [address] | REPAIR WITH | | | | | [address] | BIOLOGICAL MESH | | | | | [place], [place] | | | | | | [address] | | | | | | [phone] | | | | | | | | +--------+ + + + + | 06/30/ | Office | Cardiology | Randell Franks, | | | 2019 | Visit | | MD [address] | | | | | | Ave [place], [place] | | | | | | [address] | | | | | | [phone] | | | | | | | | +--------+ + + + + documented as of this encounter Visit Diagnoses Not on filedocumented in this encounter"
--- OUTSIDE RECORDS SUMMARY | ~2019-06-01 | XMS | Encounter Summary ---
Demographics + + + | Address | [address] | | | [place] [address] | + + + | Home Phone [...] + | Katalina Padilla | ECON | [address] | | | | | [place], [place] | | | | | [address] | | + + + + + | Ellie Vang | ECON | Unknown | | + + + + + Care Team Providers + +------+ + | Care Tight Barrel Inspector Name | Role | Phone | + +------+ + | Fadi Goodrich DO | PCP | | + +------+ + Encounter Details +--------+ + + + + | Date | Type | Department | Care Team | Description | +--------+ + + + + | 11/04/ | Telephone | [facility] at [facility] | Leslie Mistry, | | | 2017 | | Floor [address] | PhD [address] [facility] | | | | | [address] Mailcode: | [address] | | | | | [address] [place], [place] | | | | | Health and Healing, | [address] | | | | | [facility] | [phone] | | | | | Floor [place], [place] | | | | | | [address] | | | | | | [phone] | | | +--------+ + + + [...] Rd | | | | | | [place], [place] | | | | | | [address] | | | | | | [phone] | | | | | | | | +--------+ + + + + | 06/24/ | Surgery | Surgery | Chilo, | OPEN VENTRAL HERNIA | | 2018 | | | MD Jorje [address] | REPAIR WITH | | | | | [address] | BIOLOGICAL MESH | | | | | [place], [place] | | | | | | [address] | | | | | | [phone] | | | | | | | | +--------+ + + + + | 06/30/ | Office | Cardiology | Randell Franks, | | | 2018 | Visit | | MD [address] | | | | | | Ave [place], [place] | | | | | | [address] | | | | | | [phone] | | | | | | | | +--------+ + + + + documented as of this encounter Visit Diagnoses Not on filedocumented in this encounter"
--- OUTSIDE RECORDS SUMMARY | ~2019-06-01 | XMS | Encounter Summary ---
Demographics + + + | Address | [address] | | | [place] [address] | + + + | Home Phone [...] [place], [place] | | | | | [address] | | + + + + + | Ellie Vang | ECON | Unknown | | + + + + + Care Team Providers + +------+ + | Care Sous Chef Kitchen Manager Name | Role | Phone | [...] 2012 | | Center at [facility] [address] | MD [address] | | | | | [address] | [facility] | | | | | Mailcode: Center | [place], [place] | | | | | [facility] and | [address] | | | | | [facility], [facility] 2 | [phone] | | | | | [place], [place] | | | | | | [address] | | | | | | [phone] | | | +--------+ + + + [...] | | | | | | [place], [place] | | | | | | [address] | | | | | | [phone] | | | | | | | | +--------+ + + + + | 06/24/ | Surgery | Surgery | Chilo, | OPEN VENTRAL HERNIA | | 2018 | | | MD [address]or[address] | REPAIR WITH | | | | | [address] | BIOLOGICAL MESH | | | | | [facility] [place] | | | | | | [address] | | | | | | [phone] | | | | | | | | +--------+ + + + + | 06/30/ | Office | Cardiology | Randell Franks, | | | 2018 | Visit | | [address] | | | | | | [place] [facility] [place] | | | | | | [address] | | | | | | [phone] | | | | | | | | +--------+ + + + + documented as of this encounter Visit Diagnoses Not on filedocumented in this encounter"
--- OUTSIDE RECORDS SUMMARY | ~2019-06-01 | XMS | Encounter Summary ---
Demographics + + + | Address | [address] | | | [place] [address] | + + + | Home Phone [...] [place], [place] | | | | | [address] | | + + + + + | Ellie Vang | ECON | Unknown | | + + + + + Care Team Providers + +------+ + | Care Frontload Driver Name | Role | Phone | [...] [id number] | | | | | | [facility] | | | | | | [place], [place] | | | | | | [address] | | | | | | [phone] | | | +--------+ + + + [...] Rd | | | | | | [place], [place] | | | | | | [address] | | | | | | [phone] | | | | | | | | +--------+ + + + + | 06/24/ | Surgery | Surgery | Chilo, | OPEN VENTRAL HERNIA | | 2018 | | | MD [address] | REPAIR WITH | | | | | [address] | BIOLOGICAL MESH | | | | | [place], [place] | | | | | | [address] | | | | | | [phone] | | | | | | | | +--------+ + + + + | 06/30/ | Office | Cardiology | Randell Franks, | | | 2018 | Visit | | MD [address] | | | | | | [address] [place], [place] | | | | | | [address] | | | | | | [phone] | | | | | | | | +--------+ + + + + documented as of this encounter Visit Diagnoses Not on filedocumented in this encounter"
--- OUTSIDE RECORDS SUMMARY | ~2019-06-01 | XMS | Encounter Summary ---
Demographics + + + | Address | [address] | | | [place] [address] | + + + | Home Phone [...] + | Katalina Padilla | ECON | [address] | | | | | [place], [place] | | | | | [address] | | + + + + + | Ellie Vang | ECON | Unknown | | + + + + + Care Team Providers + +------+ + | Care Powerhouse Helper Name | Role | Phone | + +------+ + | Fadi Goodrich DO | PCP | | + +------+ + Encounter Details +--------+ + + + + | Date | Type | Department | Care Team | Description | +--------+ + + + + | 02/10/ | Abstract | Digestive Health | Hernandez Brian, | | | 2012 | | Center at [facility] [address] | MD [address] | | | | | [address] | [facility] | | | | | Mailcode: Center | [place], [place] | | | | | [facility] Health and | [address] | | | | | [facility], [facility] 2 | [phone] | | | | | [place], [place] | | | | | | [address] | | | | | | [phone] | | | +--------+ + + + [...] Rd | | | | | | [place], [place] | | | | | | [address] | | | | | | [phone] | | | | | | | | +--------+ + + + + | 06/24/ | Surgery | Surgery | Chilo, | OPEN VENTRAL HERNIA | | 2018 | | | MD Jor[address] | REPAIR WITH | | | | | [address] | BIOLOGICAL MESH | | | | | [facility] [place] | | | | | | [address] | | | | | | [phone] | | | | | | | | +--------+ + + + + | 06/30/ | Office | Cardiology | Randell Franks, | | | 2018 | Visit | | [address] | | | | | | [place] [facility] [place] | | | | | | [address] | | | | | | [phone] | | | | | | | | +--------+ + + + + documented as of this encounter Visit Diagnoses Not on filedocumented in this encounter"
--- OUTSIDE RECORDS SUMMARY | ~2019-06-01 | XMS | Encounter Summary ---
Demographics + + + | Address | [address] | | | [place] [address] | + + + | Home Phone [...] [place], [place] | | | | | [address] | | + + + + + | [place]ie [place]ang | ECON | Unknown | | + + + + + Care Team Providers + +------+ + | Care Shuttler Car Name | Role | Phone | + +------+ + | Kenyatta Cardenas MD | PCP | | + +------+ + Encounter Details +--------+ + + + + | Date | Type | Department | Care Team | Description | +--------+ + + + + | 03/18/ | Transcribe | [facility] alonso [facility] | Transcribe | | | 2019 | Orders | [address] | Encounter, Provider, | | | | | [address] Mailcode: | [address] | | | | | [address] [place] | [place] [address] | | | | | Health and Healing, | | | | | | Building [address] | | | | | | [place], [place] | | | | | | [address] | | | | | | [phone] | | | +--------+ + + + [...] [place] | | | | | | [address] | | | | | | [phone] | | | | | | | | +--------+ + + + + | 06/24/ | Surgery | Surgery | Chilo | OPEN VENTRAL HERNIA | | 2018 | | | MD [address] | REPAIR WITH | | | | | [address] | BIOLOGICAL MESH | | | | | [place], [place] | | | | | | [address] | | | | | | [phone] | | | | | | | | +--------+ + + + + | 06/30/ | Office | Cardiology | Randell Franks, | | | 2018 | Visit | | [address] | | | | | | [place], [place] | | | | | | [address] | | | | | | [phone] | | | | | | | | +--------+ + + + + documented as of this encounter Results EGD (04/07/2019 10:53 AM PDT) + + | Specimen | + + | | + + + + + | Narrative | Performed At | + + + | MRN: | [facility] | | [id number] Date: 04/07/2019Patient Name: Elzbieta Curtis #: | ENDOSCOPY | | [id number] of : 1975CSN: [id number] Type: | | | AmbulatoryRoom: Endo 5Procedure: Upper GI | | | endoscopyIndications: Generalized abdominal pain, Nausea | | | with vomitingProviders: TAL LUND MD | | | (Doctor), BERNARDO BERNARD RN (Nurse), | | | EREN SLATER (Institute Director)Referring MD: SYLVIA Kilpatrick | | | KENNY [...] | | | The [employer] [id number] Endoscope #[id number] | | | was introduced through the [...]
--- OUTSIDE RECORDS SUMMARY | ~2019-06-01 | XMS | Encounter Summary ---
Demographics + + + | Address | [address] | | | [place] [address] | + + + | Home Phone [...] [place], [place] | | | | | [address] | | + + + + + | Ellie Vang | ECON | Unknown | | + + + + + Care Team Providers + +------+ + | Care Drying Rack Changer Name | Role | Phone | [...] | 2017 | | Preventive at [facility] | MD [address] | | | | | [address] | [place] [facility] [place] | | | | | Mailcode: [facility] | [address] | | | | | [facility] | [phone] | | | | | and [place]rick | | | | | | [address] | | | | | | [facility] [place] | | | | | | [address] | | | | | | [phone] | | | +--------+ + + + [...] Rd | | | | | | [place], [place] | | | | | | [address] | | | | | | [phone] | | | | | | | | +--------+ + + + + | 06/24/ | Surgery | Surgery | Chilo | OPEN VENTRAL HERNIA | | 2018 | | | MD [address] | REPAIR WITH | | | | | [address] | BIOLOGICAL MESH | | | | | [place], [place] | | | | | | [address] | | | | | | [phone] | | | | | | | | +--------+ + + + + | 06/30/ | Office | Cardiology | Randell Franks, | | | 2019 | Visit | | MD [address] | | | | | | [place], [place] | | | | | | [address] | | | | | | [phone] | | | | | | | | +--------+ + + + + documented as of this encounter Visit Diagnoses Not on filedocumented in this encounter"
--- OUTSIDE RECORDS SUMMARY | ~2019-06-01 | XMS | Encounter Summary ---
Demographics + + + | Address | [address] | | | [place] [address] | + + + | Home Phone [...] Author | [facility] | | | and Jeffana | + + + | Organization | [facility] Hernandez [...] Providers + +------+ + | Care Apartment Hotel Manager Name | Role | Phone | [...] | | | | | previous | [place], | [address] [place] | | | | | audiogram | [place] [address] | [place], [place] | | | | | Procedures | Phone: | [address] Phone: | | | | | OFFICE VISIT | [phone] | [phone] | | | | | REGULAR | Fax: | Fax: | | | | | | [phone] | [phone] | +--------+--------+ + + + + Encounter Details +--------+---------+ + + + | Date | Type | Department | Care Team | Description | +--------+---------+ + + + | 05/26/ | Office | [facility] [place] | Sherron Freedman MS | Normal hearing noted | | 2019 | Visit | AUDIOLOGY AND | [facility] [address] | on examination | | | | [facility] | [address] [place] | (Primary Dx); | | | | [address] | [place] [address] | Pressure sensation | | | | [address] [place] | [phone] | in both ears | | | | [place] [address] | | | | | | [phone] | | | +--------+---------+ + + + [...]
--- OUTSIDE RECORDS SUMMARY | ~2019-06-01 | XMS | Encounter Summary ---
Demographics + + + | Address | [address] | | | [place] [address] | + + + | Home Phone [...] [place], [place] | | | | | [address] | | + + + + + | Ellie Vang | ECON | Unknown | | + + + + + Care Team Providers + +------+ + | Care Stone Chimney Mason Name | Role | Phone | + +------+ + | Fadi Goodrich DO | PCP | | + +------+ + Encounter Details +--------+ + + + + | Date | Type | Department | Care Team | Description | +--------+ + + + + | 06/17/ | Abstract | Digestive Health | Shereen Georges, | | | 2012 | | Center at [facility] [address] | ACNP [address] | | | | | [address] | Ave [place], [place] | | | | | Mailcode: [place] | [address] | | | | | for Health and | | | | | | [facility] 2 | | | | | | [facility] [place] | | | | | | [address] | | | | | | | [...] Rd | | | | | | [place], [place] | | | | | | [address] | | | | | | [phone] | | | | | | | | +--------+ + + + + | 06/24/ | Surgery | Surgery | Chilo, | OPEN VENTRAL HERNIA | | 2018 | | | MD Jorje [address] | REPAIR WITH | | | | | [address] | BIOLOGICAL MESH | | | | | [facility] [place] | | | | | | [address] | | | | | | [phone] | | | | | | | | +--------+ + + + + | 06/30/ | Office | Cardiology | Randell Franks, | | | 2018 | Visit | | [address] | | | | | | [place] [facility] [place] | | | | | | [address] | | | | | | [phone] | | | | | | | | +--------+ + + + + documented as of this encounter Visit Diagnoses Not on filedocumented in this encounter"
--- OUTSIDE RECORDS SUMMARY | ~2019-06-01 | XMS | Encounter Summary ---
Demographics + + + | Address | [address] | | | [place] [address] | + + + | Home Phone [...] [place], [place] | | | | | [address] | | + + + + + | Ellie Vang | ECON | Unknown | | + + + + + Care Team Providers + +------+ + | Care Submersible Pilot Name | Role | Phone | [...] | | 2017 | | Preventive at [facility] | MD [address] | | | | | [address] | [place] [facility] [place] | | | | | Mailcode: [facility] | [address] | | | | | [facility] | [phone] | | | | | and [address] | | | | | | [address] | | | | | | [facility] [place] | | | | | | [address] | | | | | | [phone] | | | +--------+ + + + [...] Rd | | | | | | [place], [place] | | | | | | [address] | | | | | | [phone] | | | | | | | | +--------+ + + + + | 06/24/ | Surgery | Surgery | Chilo | OPEN VENTRAL HERNIA | | 2018 | | | MD [address] | REPAIR WITH | | | | | [address] | BIOLOGICAL MESH | | | | | [place], [place] | | | | | | [address] | | | | | | [phone] | | | | | | | | +--------+ + + + + | 06/30/ | Office | Cardiology | Randell Franks, | | | 2019 | Visit | | MD [address] | | | | | | [place], [place] | | | | | | [address] | | | | | | [phone] | | | | | | | | +--------+ + + + + documented as of this encounter Visit Diagnoses Not on filedocumented in this encounter"
--- OUTSIDE RECORDS SUMMARY | ~2019-06-01 | XMS | Encounter Summary ---
Demographics + + + | Address | [address] | | | [place] [address] | + + + | Home Phone [...] [place], [place] | | | | | [address] | | + + + + + | Ellie Vang | ECON | Unknown | | + + + + + Care Team Providers + +------+ + | Care Sawmill Manager Name | Role | Phone | [...] | | | [address] | [facility] | | | | | Mailcode: Center | [place], [place] | | | | | [facility] and | [address] | | | | | [facility], [facility] 2 | [phone] | | | | | [place], [place] | | | | | | [address] | | | | | | [phone] | | | +--------+ + + + [...] Rd | | | | | | [place], [place] | | | | | | [address] | | | | | | [phone] | | | | | | | | +--------+ + + + + | 06/24/ | Surgery | Surgery | Chilo | OPEN VENTRAL HERNIA | | 2018 | | | Jorje, MD [address] | REPAIR WITH | | | | | [address] | BIOLOGICAL MESH | | | | | [place], [place] | | | | | | [address] | | | | | | [phone] | | | | | | | | +--------+ + + + + | 06/30/ | Office | Cardiology | Randell Franks, | | | 2019 | Visit | | [address] | | | | | | [place] [facility] [place] | | | | | | [address] | | | | | | [phone] | | | | | | | | +--------+ + + + + documented as of this encounter Visit Diagnoses Not on filedocumented in this encounter"
--- OUTSIDE RECORDS SUMMARY | ~2019-06-01 | XMS | Encounter Summary ---
Demographics + + + | Address | [address] | | | [place] [address] | + + + | Home Phone [...] [place], [place] | | | | | [address] | | + + + + + | Ellie Vang | ECON | Unknown | | + + + + + Care Team Providers + +------+ + | Care Small Animal Veterinarian Name | Role | Phone | + +------+ + | Fadi Goodrich DO | PCP | | + +------+ + Encounter Details +--------+ + + + + | Date | Type | Department | Care Team | Description | +--------+ + + + + | 12/29/ | Abstract | Digestive Health | Hernandez Brian, | | | 2012 | | Center at [facility] [address] | MD [address] | | | | | [address] | [facility] | | | | | Mailcode: Center | [place], [place] | | | | | [facility] and | [address] | | | | | [facility], [facility] 2 | [phone] | | | | | [place], [place] | | | | | | [address] | | | | | | [phone] | | | +--------+ + + + [...] Rd | | | | | | [place], [place] | | | | | | [address] | | | | | | [phone] | | | | | | | | +--------+ + + + + | 06/24/ | Surgery | Surgery | Chilo, | OPEN VENTRAL HERNIA | | 2018 | | | MD Jorje [address] | REPAIR WITH | | | | | [address] | BIOLOGICAL MESH | | | | | [facility] [place] | | | | | | [address] | | | | | | [phone] | | | | | | | | +--------+ + + + + | 06/30/ | Office | Cardiology | Randell Franks, | | | 2018 | Visit | | [address] | | | | | | [place] [facility] [place] | | | | | | [address] | | | | | | [phone] | | | | | | | | +--------+ + + + + documented as of this encounter Visit Diagnoses Not on filedocumented in this encounter"
--- OUTSIDE RECORDS SUMMARY | ~2019-06-01 | XMS | Encounter Summary ---
Demographics + + + | Address | [address] | | | [place] [address] | + + + | Home Phone [...] [place], [place] | | | | | [address] | | + + + + + | Ellie Vang | ECON | Unknown | | + + + + + Care Team Providers + +------+ + | Care Medical Affairs Leader Name | Role | Phone | [...] | | | | | | [address] | | | | | | [address] | | | | | | Physician's | | | | | | Pavilion | | | | | | [facility] | | | | | | [place], [place] | | | | | | [address] | | | | | | [phone] | | | +--------+ + + + [...] | | | | | [place], [place] | | | | | | [address] | | | | | | [phone] | | | | | | | | +--------+ + + + + | 06/24/ | Surgery | Surgery | Chilo, | OPEN VENTRAL HERNIA | | 2018 | | | MD Jorje [address] | REPAIR WITH | | | | | [address] | BIOLOGICAL MESH | | | | | [place] | | | | | | [address] | | | | | | [phone] | | | | | | | | +--------+ + + + + | 06/30/ | Office | Cardiology | Randell Franks, | | | 2018 | Visit | | [address] | | | | | | [place], [place] | | | | | | [address] | | | | | | [phone] | | | | | | | | +--------+ + + + + documented as of this encounter Visit Diagnoses Not on filedocumented in this encounter"
--- OUTSIDE RECORDS SUMMARY | ~2019-06-01 | XMS | Encounter Summary ---
Demographics + + + | Address | [address] | | | [place] [address] | + + + | Home Phone [...] [place], [place] | | | | | [address] | | + + + + + | Ellie Vang | ECON | Unknown | | + + + + + Care Team Providers + +------+ + | Care Telephone Operator Receptionist Name | Role | Phone | [...] | | | | | [facility] | | | | | | [place], [place] | | | | | | [address] | | | | | | [phone] | | | +--------+ + + + [...] [place] | | | | | | [address] | | | | | | [phone] | | | | | | | | +--------+ + + + + | 06/24/ | Surgery | Surgery | Chilo | OPEN VENTRAL HERNIA | | 2018 | | | MD [address] | REPAIR WITH | | | | | [address] | BIOLOGICAL MESH | | | | | [place], [place] | | | | | | [address] | | | | | | [phone] | | | | | | | | +--------+ + + + + | 06/30/ | Office | Cardiology | Randell Franks, | | | 2019 | Visit | | [address] | | | | | | [place], [place] | | | | | | [address] | | | | | | [phone] | | | | | | | [...] | | + +---------+ + + ANG/EXIST CHICHI/ALEENA/TTAO/INFU (05/15/1993 9:30 AM PDT) + + + [...] | | | | navigated a #5.5 [place] | | | | | | Ozzy [...] | | + +---------+ + + | [facility] DEPARTMENT OF | | | [...] | | + +---------+ + + | [facility] DEPARTMENT OF | | | [...] | | + +---------+ + + | [facility] DEPARTMENT OF | | | [...] | | | | | | a#5.5 [place] sheath was | | | | | | secured into place. In | | | | | | a similar fashion, | | | | | | a#7.0 [place] sheath was | | | | | [...] | | | | | The #7 [place] Brite | | | | | | [...] | | + +---------+ + + | [facility] DEPARTMENT OF | | | | | RADIOLOGY | | | | + +---------+ + + documented in this encounter Visit Diagnoses Not on filedocumented in this encounter
--- OUTSIDE RECORDS SUMMARY | ~2019-06-01 | XMS | Encounter Summary ---
Demographics + + + | Address | [address] | | | [place] [address] | + + + | Home Phone [...] [place], [place] | | | | | [address] | | + + + + + | Ellie Vang | ECON | Unknown | | + + + + + Care Team Providers + +------+ + | Care Chocolate Production Machine Operator Name | Role | Phone [...] [place] | | | | | | [address] | | | | | | [phone] | | | | | | | | +--------+ + + + + | 06/24/ | Surgery | Surgery | Chilo, | OPEN VENTRAL HERNIA | | 2018 | | | MD Jorje [address] | REPAIR WITH | | | | | [address] | BIOLOGICAL MESH | | | | | [place], [place] | | | | | | [address] | | | | | | [phone] | | | | | | | | +--------+ + + + + | 06/30/ | Office | Cardiology | Randell Franks, | | | 2018 | Visit | | [address] | | | | | | [place], [place] | | | | | | [address] | | | | | | [phone] | | | | | | | | +--------+ + + + + documented as of this encounter Visit Diagnoses Not on filedocumented in this encounter"
--- OUTSIDE RECORDS SUMMARY | ~2019-06-01 | XMS | Encounter Summary ---
Demographics + + + | Address | [address] | | | [place] [address] | + + + | Home Phone [...] + | Katalina Padilla | ECON | [address] | | | | | [place], [place] | | | | | [address] | | + + + + + | Ellie Vang | ECON | Unknown | | + + + + + Care Team Providers + +------+ + | Care Field Support Engineer Name | Role | Phone | [...] | | | | | essential | [address] | [address] | | | | | hypertension | [address], | Ave | | | | | Type II or | [address] | [place], [place] | | | | | unspecified | [place], [place] | [address] | | | | | type | [address] | Phone: | | | | | diabetes | Phone: | [phone] | | | | | mellitus | [phone] | Fax: | | | | | without | Fax: | [phone] | | | | | mention of | [phone] | | | | | | complication [...] | 2013 | Visit | Preventive at [facility] | [address] | mellitus (HCC) | | | | [address] | Ave [place], [place] | (Primary Dx); | | | | Mailcode: 9A | [address] | Migraine headache | | | | [facility] | [phone] | | | | | and [address], | | | | | | Building [address] | | | | | | [place], [place] | | | | | | [address] | | | | | | [phone] | | | +--------+---------+ + + + [...] she is hypothyroid and put her on [place] Thyroid hormone replacement therapy. Her heart rate [...] | Hospital | Adult Acute Care | Chlio, | | | 2019 | Encounter | | MD Jorje [address] | | | | | [address] | | | | | | [place], [place] | | | | | | [address] | | | | | | [phone] | | | | | | | [...] [place] | | | | | | [address] | | | | | | [phone] | | | | | | | | +--------+ + + + + | 06/30/ | Office | Cardiology | Randell Franks, | | | 2019 | Visit | | [address] | | | | | | [place], [place] | | | | | | [address] | | | | | | [phone] | | | | | | | [...] + + | [facility] | [address] | [place] [address] | | | SERVICES, SPECIAL | PARK [...]
--- OUTSIDE RECORDS SUMMARY | ~2019-06-01 | XMS | Encounter Summary ---
Demographics + + + | Address | [address] | | | [place] [address] | + + + | Home Phone [...] [place], [place] | | | | | [address] | | + + + + + | Ellie Vang | ECON | Unknown | | + + + + + Care Team Providers + +------+ + | Care Solderer Assembler Name | Role | Phone | [...] INCISIONAL HERNIA | | 2015 | | [facility] | [address] | REPAIR | | | | Admitting Desk | [address] | | | | | Located on the 9 | [place], [place] | | | | | floor [address] | [address] | | | | | [address] | [phone] | | | | | [place], [place] | | | | | | [address] | | | +--------+---------+ + + + [...] port site who was transferre d to [facility] for concern of an incarcerated [...] mouth once daily. , Historical Med CALCIUM [id number]-[id number]-GENIS ORAL Take 1 tablet by mouth two [...] 10:40 AM Randell Franks Cardiology Preventive at [facility] [phone] Cardiology 04/09/2015 1:00 PM Egs Ppv Tra Trauma Emergency General Surgery at [facility] [phone] [facility] Outstanding labs/studies: None Discharging Physician: GABO LANGSTON MD Attending Physician: Dr. Cantu PCP: Fadi Goodrich DO Signed: GABO LANGSTON MD Pager #[phone] Surgical Tester/Lift Trucker [facility] Associated attestation - Tye Carrillo DO - 03/12/2015 9:12 AM PDTAttending: I discussed this patient with the resident and agree with the assessment and plan as outlin ed in this note and participated in the planning of care. Tye Carrillo DO, SIDRA, FACS Division of Trauma, Critical Care & Acute Care Surgery [facility] [phone] documented in this encounter Medications at Time of Discharge + + + +---------+--------+ + | Medication | Sig | Dispensed | Refills | Start | End Date | | | | | | Date | | + + + +---------+--------+ + | CALCIUM | Take 2 tablets by | | 0 | | | | CRB&GYR-U1-HDQ32-GEN | mouth two times | | | [...] might be differ ent from the original. [facility] DEPARTMENT OF SURGERY EMERGENCY GENERAL SURGERY Division [...] obesity with known ventral hernias transferred to [facility] for surgical managem ent of ventral hernia, now s/p repair. Post surgical pain: -patient ready for d/c, discussed f/u. Patient lives far away and has other appointments at [facility]. Will attempt to coordinate appointments. Discharge Plan: D/c today GABO LANGSTON MD Pager #[phone] Surgical Tester/Lift Trucker [facility] ick Mendez, Salomón rose R - 03/02/2015 1:12 PM PDT [facility] DEPARTMENT OF SURGERY EMERGENCY GENERAL SURGERY Division of Trauma and Critical Care Attending Physician: Shahid Cantu MD Progress Note Note Date: 03/02/2015 Admission Date: 2015 DYLAN ROMERO, Hospital Day #2 40 F PMH morbid obesity (BMI 71 today), DM2, depression, GERD, h/o stroke at age 18, and kn own ventral hernias transferred to [facility] for surgical treatment of suspected [...] obesity with known ventral hernias transferred to [facility] for surgical managem ent of [...] will be robel ing her home to [place], [place]. CALVIN ROMERO MD PGY-1 Anesthesiology Pager: [phone] [facility] A [address] [place] [address] Karthik Oneill MD - 03/02/2015 8:26 AM [id number] Calvin William Md - 03/01/2015 5:34 PM PDT Brief Post Operative Note: 40 F PMH morbid obesity (BMI 71 today), DM2, depression, GERD, h/o stroke at age 18, and kn own ventral hernias transferred to [facility] for surgical treatment of incarcerated [...] control CALVIN ROMERO MD PGY-1 Anesthesiology Pager: [phone] signed by Calvin Romero Md at 03/01/2015 [...] [place] | | | | | | [address] | | | | | | [phone] | | | | | | | | +--------+ + + + + | 06/24/ | Surgery | Surgery | Chilo, | OPEN VENTRAL HERNIA | | 2019 | | | MD [address] | REPAIR WITH | | | | | [address] | BIOLOGICAL MESH | | | | | [place], [place] | | | | | | [address] | | | | | | [phone] | | | | | | | | +--------+ + + + + | 06/30/ | Office | Cardiology | Randell Franks, | | | 2019 | Visit | | [address] | | | | | | [place], [place] | | | | | | [address] | | | | | | [phone] | | | | | | | [...] | | Attending Surgeon: Shahid Cantu MD Ict Customer Support Officer(s): Howie Angeles MD, R5 | | Karthik [...] 03/02/2015 08:25:39DT: 03/02/2015 09:15:57Job #: | | [id number] | | | |Dr. Chris Cantu was present and scrubbed for the entirety of the case. | | | | | | | |Karthik Gonzalez MD | | | |Pursuant to federal Medicare and Medicaid regulations I was present for the entire procedur e. | | | | | | | |Shahid Cantu MD | |Control Chemist | |Trauma, Critical Care & Acute Care Surgery | | | | | | | |Shahid Cantu MD | |[place] | | | | | | /[id number] | + ---+ CAPILLARY BLOOD GLUCOSE (NO [...] - KWAKU | [address] | [place], [place] | | | JUSTINE [facility]WN OF CARE | [facility] | [address] | | | TESTS | | | [...] (H) | 60 - 99 mg/dL | [facility] - | | | GLUCOSE, [...] AMES | [address] | [place], [place] | | | [facility]WN OF [facility] | [facility] | [address] | | | TESTS | | | [...] KWAKU | [address] | [place], [place] | | | JUSTINE DAWN OF JAKY | [address] | [address] | | | TESTS | | | [...] KWAKU | [address] | [place], [place] | | | [facility] POINT OF CARE | [address] | [address] | | | TESTS | | | [...] (H) | 60 - 99 mg/dL | [facility] - | | | GLUCOSE, [...] AMES | [address] | [place], [place] | | | JUST[facility]WN OF [facility] | [facility] | [address] | | | TESTS | | | [...] MARQUAM | [address] | [place], [place] | | | JUSTINE DAWN OF JAKY | [address] | [address] | | | TESTS | | | [...] + + | [facility] | [address] [facility] | [place] [address] | | | SERVICES, CORE | CLARENCE [...] | | | LABORATORY | | | BERMUDIAN | | | SERVICES, | | | [...] | [facility] | [address] | [place] [address] | | | SERVICES, CORE | CLARENCE [...] (H) | 60 - 99 mg/dL | [facility] - | | | GLUCOSE, [...] AMES | [address] | [place], [place] | | | JUSTINE DAWN OF CARE | [address] | [address] | | | TESTS | | | [...] MARQUAM | [address] | [place], [place] | | | JUSTINE DAWN OF CARE | [address] | [address] | | | TESTS | | | [...] MARQUAM | [address] | [place], [place] | | | JUSTINE DAWN OF JAKY | [address] | [address] | | | TESTS | | | [...] (H) | 60 - 99 mg/dL | [facility] - | | | GLUCOSE, [...] AMES | [address] | [place], [place] | | | JUSTINE DAWN OF CARE | [address] | [address] | | | TESTS | | | [...] MARQUAM | [address] | [place], [place] | | | JUSTINE DAWN OF CARE | [address] | [address] | | | TESTS | | | [...] [facility] | [address] | [place] [address] | | | SERVICES, CORE | CLARENCE [...] MARQUAM | [address] | [place], [place] | | | JUSTINE DAWN OF CARE | [address] | [address] | | | TESTS | | | [...]
--- OUTSIDE RECORDS SUMMARY | ~2019-06-01 | XMS | Encounter Summary ---
Demographics + + + | Address | [address] | | | [place] [address] | + + + | Home Phone [...] [place], [place] | | | | | [address] | | + + + + + [...] | 2016 | | Preventive at [facility] | MD [address] | | | | | [address] | Ave [place], [place] | | | | | Mailcode: [facility] | [address] | | | | | [facility] | [phone] | | | | | and Healing, | | | | | | [address] | | | | | | [facility] [place] | | | | | | [address] | | | | | | [phone] | | | +--------+ + + + [...] Rd | | | | | | [place], [place] | | | | | | [address] | | | | | | [phone] | | | | | | | | +--------+ + + + + | 06/24/ | Surgery | Surgery | Chilo, | OPEN VENTRAL HERNIA | | 2019 | | | MD Jorje [address] | REPAIR WITH | | | | | [address] | BIOLOGICAL MESH | | | | | [place], [place] | | | | | | [address] | | | | | | [phone] | | | | | | | | +--------+ + + + + | 06/30/ | Office | Cardiology | Randell Franks, | | | 2019 | Visit | | MD [address] | | | | | | [place], [place] | | | | | | [address] | | | | | | [phone] | | | | | | | | +--------+ + + + + documented as of this encounter Visit Diagnoses Not on filedocumented in this encounter"
--- OUTSIDE RECORDS SUMMARY | ~2019-06-01 | XMS | Encounter Summary ---
Demographics + + + | Address | [address] | | | [place] [address] | + + + | Home Phone [...] [place], [place] | | | | | [address] | | + + + + + | Ellie Vang | ECON | Unknown | | + + + + + Care Team Providers + +------+ + | Care Generation Technologist Name | Role | Phone | + +------+ + | Fadi Goodrich DO | PCP | | + +------+ + Encounter Details +--------+ + + + + | Date | Type | Department | Care Team | Description | +--------+ + + + + | 10/27/ | Abstract | Digestive Health | Clinic, Surgery | | | 2018 | | [place] [facility] [address] | | | | [address] | | | | | | Mailcode: [place] | | | | | | [facility] and | | | | | | [facility] 2 | | | | | | [place], [place] | | | | | | [address] | | | | | | [phone] | | | +--------+ + + + [...] [place] | | | | | | [address] | | | | | | [phone] | | | | | | | | +--------+ + + + + | 06/24/ | Surgery | Surgery | Chilo, | OPEN VENTRAL HERNIA | | 2018 | | | MD [address] | REPAIR WITH | | | | | [address] | BIOLOGICAL MESH | | | | | [place], [place] | | | | | | [address] | | | | | | [phone] | | | | | | | | +--------+ + + + + | 06/30/ | Office | Cardiology | Randell Franks, | | | 2019 | Visit | | MD [address] | | | | | | [address] [place], [place] | | | | | | [address] | | | | | | [phone] | | | | | | | | +--------+ + + + + documented as of this encounter Visit Diagnoses Not on filedocumented in this encounter"
--- OUTSIDE RECORDS SUMMARY | ~2019-06-01 | XMS | Encounter Summary ---
Demographics + + + | Address | [address] | | | [place] [address] | + + + | Home Phone [...] [place], [place] | | | | | [address] | | + + + + + | Ellie Vang | ECON | Unknown | | + + + + + Care Team Providers + +------+ + | Care Hotel Clerk Name | Role | Phone | [...] | HA Roldan | | | with MAGNESIUM MILL OPERATOR | | hypertension | [address] | [address] | | | | | Right | [address] | [address] | | | | | heart | [place], [place] | [place], | | | | | failure | [address] | [place] | | | | | ([facility]) Type | Phone: | [address] | | | | | 2 diabetes | [phone] | | | | | | mellitus | Fax: | | | | | | without | [phone] | | | | | | complication [...] | 2017 | Visit | Center at [facility] [address] | [address] | BMI of 70 and over, | | | | [address] | Lesly Gutiérrez [place], | adult ([facility]) (Primary | | | | Mailcode: Center | [place] [address] | Dx); Type 2 | | | | for Health and |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 | | | | Healing, Building 2 | | without | | | | [place], [place] | | complication, with | | | | [address] | | long-term current | | | | [phone] | | use of insulin | | | | | | ([facility]); Chronic | | | | | | diastolic heart | | | | | | failure ([facility]) | +--------+---------+ + + + Social History [...] of Visit: 10:03 to 10:30 (27 minutes cscv-qi-uqfh with patient) (1 hour ap point not [...] eat like she should, tries to eat platform beater things and this does not help. 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 4. Call or send Retail Optimization message to dietitian with any questions. Contact information was provided. Follow up with dietitian prior to surgery (take 2 Weight management classes as part of 6 mo [facility] supervised diet). Yuli Childs RD, [facility], LD [facility] Bariatrics [phone] documented in this enco unter Plan of [...] Rd | | | | | | [place], [place] | | | | | | [address] | | | | | | [phone] | | | | | | | | +--------+ + + + + | 06/24/ | Surgery | Surgery | Chilo, | OPEN VENTRAL HERNIA | | 2019 | | | MD Jorje [address] | REPAIR WITH | | | | | [address] | BIOLOGICAL MESH | | | | | [place], [place] | | | | | | [address] | | | | | | [phone] | | | | | | | | +--------+ + + + + | 06/30/ | Office | Cardiology | Randell Franks, | | | 2019 | Visit | | [address] | | | | | | [place], [place] | | | | | | [address] | | | | | | [phone] | | | | | | | | +--------+ + + + + documented as of this encounter Procedures + +--------+ + + + | Procedure Name | Priori | Date/Time | Associated Diagnosis | Comments | | | ty | | | | + +--------+ + + + | RI MNT RE-ASSESSMNT | Routin | 02/02/2017 | Morbid obesity | | | X15MIN | e | 12:04 PM | with BMI of 70 and | | | | | PDT | over, adult ([facility]) | | | | | | Type 2 diabetes | | | | | | mellitus without | | | | | | complication, with | | | | | | long-term current | | | | | | use of insulin ([facility]) | | | | | | Chronic diastolic | | | | | | heart failure ([facility]) | | + +--------+ + + + documented in this encounter Visit Diagnoses + + | Diagnosis | + + | Morbid obesity with BMI of 70 and over, adult ([facility]) - Primary | + + | Type 2 diabetes mellitus without complication, with long-term current use of insulin | | (HCC) | + + | Chronic diastolic heart failure (HCC) Chronic diastolic heart failure | + + documented in this encounter
--- OUTSIDE RECORDS SUMMARY | ~2019-06-01 | XMS | Encounter Summary ---
Demographics + + + | Address | [address] | | | [place] [address] | + + + | Home Phone [...] [place], [place] | | | | | [address] | | + + + + + | Ellie Vang | ECON | Unknown | | + + + + + Care Team Providers + +------+ + | Care Employee Benefits Specialist Name | Role | Phone | [...] | | 2016 | | Preventive at [facility] | MD [address] | | | | | [address] | Ave [place], [place] | | | | | Mailcode: CH9A | [address] | | | | | [facility] | [phone] | | | | | and Healing, | | | | | | Building [address] | | | | | | [facility] [place] | | | | | | [address] | | | | | | [phone] | | | +--------+ + + + [...] Rd | | | | | | [place], [place] | | | | | | [address] | | | | | | [phone] | | | | | | | | +--------+ + + + + | 06/24/ | Surgery | Surgery | Chilo, | OPEN VENTRAL HERNIA | | 2019 | | | MD [address] | REPAIR WITH | | | | | [address] | BIOLOGICAL MESH | | | | | [place], [place] | | | | | | [address] | | | | | | [phone] | | | | | | | | +--------+ + + + + | 06/30/ | Office | Cardiology | Randell Franks, | | | 2019 | Visit | | MD [address] | | | | | | [place], [place] | | | | | | [address] | | | | | | [phone] | | | | | | | | +--------+ + + + + documented as of this encounter Visit Diagnoses Not on filedocumented in this encounter"
--- OUTSIDE RECORDS SUMMARY | ~2019-06-01 | XMS | Encounter Summary ---
Demographics + + + | Address | [address] | | | [place] [address] | + + + | Home Phone [...] [place], [place] | | | | | [address] | | + + + + + | Ellie Vang | ECON | Unknown | | + + + + + Care Team Providers + +------+ + | Care Despatch Clerk Name | Role | Phone | + +------+ + | Fadi Goodrich DO | PCP | | + +------+ + Encounter Details +--------+ + + + + | Date | Type | Department | Care Team | Description | +--------+ + + + + | 11/09/ | Abstract | Cardiology | Randell Franks, | | | 2014 | | Preventive at [facility] | MD [address] | | | | | [address] | Ave [place], [place] | | | | | Mailcode: CH9A | [address] | | | | | [facility] | [phone] | | | | | and Healing, | | | | | | Building [address] | | | | | | [place], [place] | | | | | | [address] | | | | | | [phone] | | | +--------+ + + + [...] Rd | | | | | | [place], [place] | | | | | | [address] | | | | | | [phone] | | | | | | | | +--------+ + + + + | 06/24/ | Surgery | Surgery | Chilo, | OPEN VENTRAL HERNIA | | 2018 | | | MD Jorje [address] | REPAIR WITH | | | | | [address] | BIOLOGICAL MESH | | | | | [place], [place] | | | | | | [address] | | | | | | [phone] | | | | | | | | +--------+ + + + + | 06/30/ | Office | Cardiology | Randell rFanks, | | | 2019 | Visit | | [address] | | | | | | Ave [place], [place] | | | | | | [address] | | | | | | [phone] | | | | | | | | +--------+ + + + + documented as of this encounter Visit Diagnoses Not on filedocumented in this encounter"
--- OUTSIDE RECORDS SUMMARY | ~2019-06-01 | XMS | Encounter Summary ---
Demographics + + + | Address | [address] | | | [place] [address] | + + + | Home Phone [...] [place], [place] | | | | | [address] | | + + + + + | Ellie Vang | ECON | Unknown | | + + + + + Care Team Providers + +------+ + | Care Senior Manager Quality Assurance Name | Role | Phone | + [...] Diabetes & | Morbid | Kathy Feliciano, MAINTENANCE PAINTER | [address] | | | | Metabolism | obesity | [address] | | | | | ([facility]) | [address], | [address] | | | | | Procedures | [address] | Physician's | | | | | CONSULT TO | [place], [place] | Pavilion | | | | | ENDO | [address] | Physician's | | | | | [address] | Phone: | Pavilion | | | | | [address] | [phone] | [place], [place] | | | | | | Fax: | [address] | | | | | | [phone] | Phone: | | | | | | | [phone] | | | | | | | Fax: | | | | | | | [phone] | +--------+--------+ + + + + Encounter Details +--------+ + + + + | Date | Type | Department | Care Team | Description | +--------+ + + + + | 11/15/ | Documentati | Digestive Health | Kathy Feldman, | | | 2012 | on | Center at [facility] [address] | MAINTENANCE PAINTER [address] | | | | | [address] | [facility] [address] | | | | | Mailcode: Center | [place], [place] | | | | | [facility] and | [address] | | | | | [facility] 2 | [phone] | | | | | [place], [place] | | | | | | [address] | | | | | | [phone] | | | +--------+ + + + [...] Rd | | | | | | [place], [place] | | | | | | [address] | | | | | | [phone] | | | | | | | | +--------+ + + + + | 06/24/ | Surgery | Surgery | Chilo, | OPEN VENTRAL HERNIA | | 2019 | | | MD Jorje [address] | REPAIR WITH | | | | | [address] | BIOLOGICAL MESH | | | | | [place], [place] | | | | | | [address] | | | | | | [phone] | | | | | | | | +--------+ + + + + | 06/30/ | Office | Cardiology | Randell Franks, | | | 2018 | Visit | | [address] | | | | | | Ave [place], [place] | | | | | | [address] | | | | | | [phone] | | | | | | | | +--------+ + + + + documented as of this encounter Visit Diagnoses + + | Diagnosis | + + | Morbid obesity (HCC) - Primary Morbid obesity | + + documented in this encounter"
--- OUTSIDE RECORDS SUMMARY | ~2019-06-01 | XMS | Encounter Summary ---
Demographics + + + | Address | [address] | | | [place] [address] | + + + | Home Phone [...] + | Katalina Padilla | ECON | [address] | | | | | [place], [place] | | | | | [address] | | + + + + + | Ellie Vang | ECON | Unknown | | + + + + + Care Team Providers + +------+ + | Care Level Designer Name | Role | Phone | [...] | HA Roldan | | | with THIRD MILLER | | hypertension | [address] | [address] | | | | | Right | [address] | [address] | | | | | heart | [place], [place] | [place], | | | | | failure | [address] | [place] | | | | | ([facility]) Type | Phone: | [phone] | | | | | 2 diabetes | [phone] | | | | | | mellitus | Fax: | | | | | | without | [phone] | | | | | | complication | | | | | | | , with | | | | | | | long-term | | | | | | | current use | | | | | | | of insulin | | | | | | | ([facility]) | | | +--------+ + [...] | | | [address] | [facility] [address] | (Primary Dx); | | | | Mailcode: Center | [place], [place] | 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[facility] and | [address] | with insulin therapy | | | | [address] | | ([facility]) | | | | [place], [place] | | | | | | [address] | | | | | | [phone] | | | +--------+---------+ + + + [...] Follow-Up Patient referred by: Randell Franks MD [address] [place] [address] Documented time of visit: 10:33 to 10:55 (22 minutes ecmx-nx-qblj with patient) Surgery: Gastric Bypass Date of [...] vagina Allergic rhinitis Anemia Anxiety Bipolar disorder ([facility]) Chronic wound infection of abdomen [...] tomato), cream of wheat occ, cottage cheese, estonian yogurt-light and fit, protein bar from [employer]. Unable to keep protei n shakes down. Fluid choices: water-4-5 bottles per day Supplementation: Flinstones, iron, vitamin D, vitamin C, Citracal supplement x 2 in the mor eusebio and 2 at night, magnesium, potassium, S09-rzrmrgaf today Assessment: Vomiting likely due to volume [...] multivitamin & mineral (with iron) supplement, 2/day -0533-7989 mg calcium citrate with vitamin D/day (take in divided doses, not within 2 hour s of multivitamin or iron supplement) -500 mcg/day sublingual B12 supplement (or monthly injections) Continued to reinforce importance of mindful eating. Continue to increase physical activity. Follow up in [address],[place] Pager# [phone] Phone: [phone] documented in this en counter Plan of [...] [place] | | | | | | [address] | | | | | | [phone] | | | | | | | | +--------+ + + + + | 06/24/ | Surgery | Surgery | Chilo, | OPEN VENTRAL HERNIA | | 2018 | | | MD [address] | REPAIR WITH | | | | | [address] | BIOLOGICAL MESH | | | | | [place] | | | | | | [address] | | | | | | [phone] | | | | | | | | +--------+ + + + + | 06/30/ | Office | Cardiology | Randell Franks, | | | 2018 | Visit | | [address] | | | | | | [place], [place] | | | | | | [address] | | | | | | [phone] | | | | | | | | +--------+ + + + + documented as of this encounter Procedures + +--------+ + + + | Procedure Name | Priori | Date/Time | Associated Diagnosis | Comments | | | ty | | | | + +--------+ + + + | TN MNT RE-ASSESSMNT | Routin | 04/01/2018 | History of | | | X15MIN | e | 12:23 PM | Frandy-en-Y gastric | | | | | PDT | bypass Diabetes | | | | | | mellitus with | | | | | | insulin therapy | | | | | | ([facility]) | | + +--------+ + + + documented in this encounter Visit Diagnoses + + | Diagnosis | + + | History of Frandy-en-Y gastric bypass - Primary Bariatric surgery status | + + | Diabetes mellitus with insulin therapy (HCC) | + + documented in this encounter
--- OUTSIDE RECORDS SUMMARY | ~2019-06-01 | XMS | Encounter Summary ---
Demographics + + + | Address | [address] | | | [place] [address] | + + + | Home Phone [...] [place], [place] | | | | | [address] | | + + + + + | Ellie Vang | ECON | Unknown | | + + + + + Care Team Providers + +------+ + | Care Burn Center Nurse Name | Role | Phone | [...] [address] | | | | | [place] [facility] [address] | Ave [place], [place] | | | | | [address] [facility] | [address] | | | | | Mailcode: Center | [phone] | | | | | for Health and | | | | | | [facility] 2 | | | | | | [place], [place] | | | | | | [address] | | | | | | [phone] | | | +--------+ + + + [...] Rd | | | | | | [place], [place] | | | | | | [address] | | | | | | [phone] | | | | | | | | +--------+ + + + + | 06/24/ | Surgery | Surgery | Chilo, | OPEN VENTRAL HERNIA | | 2019 | | | MD Jorje [address] | REPAIR WITH | | | | | [address] | BIOLOGICAL MESH | | | | | [place], [place] | | | | | | [address] | | | | | | [phone] | | | | | | | | +--------+ + + + + | 06/30/ | Office | Cardiology | Randell Franks, | | | 2019 | Visit | | MD [address] | | | | | | [place], [place] | | | | | | [address] | | | | | | [phone] | | | | | | | | +--------+ + + + + documented as of this encounter Visit Diagnoses Not on filedocumented in this encounter"
--- OUTSIDE RECORDS SUMMARY | ~2019-06-01 | XMS | Encounter Summary ---
Demographics + + + | Address | [address] | | | [place] [address] | + + + | Home Phone [...] [place], [place] | | | | | [address] | | + + + + + | Ellie Vang | ECON | Unknown | | + + + + + Care Team Providers + +------+ + | Care Roll Sheeting Cutter Name | Role | Phone | [...] | | | | | | | [address] | | | | | | | [address] | | | | | | | [place], | | | | | | | [place] | | | | | | | [address] | | | | | | | Phone: | | | | | | | [phone] | | | | | | | Fax: | | | | | | | [phone] | +--------+--------+ + + + + Encounter Details +--------+---------+ + + + | Date | Type | Department | Care Team | Description | +--------+---------+ + + + | 04/14/ | Office | Digestive Health | Hernandez Brian, | Morbid obesity (HCC) | | 2013 | Visit | Center at [facility] [address] | [address] | (Primary Dx); Type | | | | [address] | [address] | 2 diabetes mellitus | | | | Mailcode: Center | [place], [place] | ([facility]); AMARA | | | | for Health and | [address] | (obstructive sleep | | | | [facility] 2 | [phone] | apnea); Edema | | | | [place], [place] | | | | | | [address] | | | | | | [phone] | | | +--------+---------+ + + + [...] + documented in this encounter Progress Notes Hernnadez Brian MD - 04/18/2013 12:04 PM PDTI [...] with close followup by her PCP in [place] in the interim. Dr. Guillory in [place] has been following her since January, with CT scan obtained at [facility] in [place] 02/09/2013 (images in IMPAX), demonstrating "recurrent hypogastric [...] to follow up with her providers at [facility] to include a visi t to [...] r weight loss efforts. She saw a explosive ordnance disposal manager today and Melida came in to discuss bariatric saarhi cklist with patient and get her started [...] and well perfused. 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 There is a well [...] Rd | | | | | | [place], [place] | | | | | | [address] | | | | | | [phone] | | | | | | | | +--------+ + + + + | 06/24/ | Surgery | Surgery | Chilo | OPEN VENTRAL HERNIA | | 2018 | | | MD [address] | REPAIR WITH | | | | | [address] | BIOLOGICAL MESH | | | | | [place], [place] | | | | | | [address] | | | | | | [phone] | | | | | | | | +--------+ + + + + | 06/30/ | Office | Cardiology | Randell Franks, | | | 2019 | Visit | | [address] | | | | | | [place] [address], [place] | | | | | | [address] | | | | | | [phone] | | | | | | | | +--------+ + + + + documented as of this encounter Visit Diagnoses + + | Diagnosis | + + | Morbid obesity (HCC) - Primary Morbid obesity | + + | Type 2 diabetes mellitus ([facility]) Type II or unspecified type diabetes mellitus without | | mention of complication, not stated as uncontrolled | + + | AMARA (obstructive sleep apnea) Obstructive sleep apnea (adult) (pediatric) | + + | Edema | + + documented in this encounter
--- OUTSIDE RECORDS SUMMARY | ~2019-06-01 | XMS | Encounter Summary ---
Demographics + + + | Address | [address] | | | [place] [address] | + + + | Home Phone [...] [place], [place] | | | | | [address] | | + + + + + | Ellie Vang | ECON | Unknown | | + + + + + Care Team Providers + +------+ + | Care Retail Presentation Specialist Name | Role | Phone | [...] the | | | | | | [facility] [address] [facility] | | | | | | [facility] | | | | | | [place], [place] | | | | | | [address] | | | +--------+ + + + [...] Rd | | | | | | [place], [place] | | | | | | [address] | | | | | | [phone] | | | | | | | [...] [place] | | | | | | [address] | | | | | | [phone] | | | | | | | | +--------+ + + + + | 06/30/ | Office | Cardiology | Randell Franks, | | | 2018 | Visit | Analisa CARVAJAL [address] | | | | | | Ave [place], [place] | | | | | | [address] | | | | | | [phone] | | | | | | | | +--------+ + + + + documented as of this encounter Visit Diagnoses Not on filedocumented in this encounter"
--- OUTSIDE RECORDS SUMMARY | ~2019-06-01 | XMS | Encounter Summary ---
Demographics + + + | Address | [address] | | | [place] [address] | + + + | Home Phone [...] [place], [place] | | | | | [address] | | + + + + + | Ellie Vang | ECON | Unknown | | + + + + + Care Team Providers + +------+ + | Care Office Helper Name | Role | Phone | [...] | | | | | (HCC) | [place], [place] | Mailcode: | | | | | Procedures | [address] | [address] [facility] | | | | | CT ABDOMEN & | Phone: | Hospital | | | | | [address] | | [place], [place] | | | | | IV CONTRAST | Fax: | [address] | | | | | [place] [address] | [phone] | Phone: | | | | | ABDOMEN&PELV | | [phone] | | | | | IS | | Fax: | | | | | W/CONTRAST | | [phone] | | | | | See chart [...] | 2015 | Encounter | Lab at [facility] [address] | | | | | | [address] Mailcode: | | | | | | [facility] | | | | | | Health and Healing, | | | | | | [place] [address], [facility] | | | | | | Floor [place], [place] | | | | | | [address] | | | | | | [phone] | | | +--------+ + + + [...] 2019 | Encounter | | MD [address]or[address] | | | | | | [address] | | | | | | [place], [place] | | | | | | [address] | | | | | | [phone] | | | | | | | | +--------+ + + + + | 06/24/ | Surgery | Surgery | Chilo, | OPEN VENTRAL HERNIA | | 2019 | | | MD Jorje [address] | REPAIR WITH | | | | | [address] | BIOLOGICAL MESH | | | | | [place], [place] | | | | | | [address] | | | | | | [phone] | | | | | | | | +--------+ + + + + | 06/30/ | Office | Cardiology | Randell Franks, | | | 2018 | Visit | | MD [address] | | | | | | Ave [place], [place] | | | | | | [address] | | | | | | [phone] | | | | | | | [...] + + | JUSTINE PEÑA | [address] [facility] | [place] [address] | | | OF CARE TESTS | | | | + + + + + documented in this encounter Visit Diagnoses + + | Diagnosis | + + | Abdominal pain | + + | Morbid obesity (HCC) Morbid obesity | + + documented in this encounter"
--- OUTSIDE RECORDS SUMMARY | ~2019-06-01 | XMS | Encounter Summary ---
Demographics + + + | Address | [address] | | | [place] [address] | + + + | Home Phone [...] [place], [place] | | | | | [address] | | + + + + + | Ellie Vang | ECON | Unknown | | + + + + + Care Team Providers + +------+ + | Care Steam Bone Press Tender Name | Role | Phone [...] | | 2 diabetes | JEAN, | [place], [place] | | | | | mellitus | [place] [address] | [address] | | | | | without | Phone: | Phone: | | | | | complication | [phone] | [phone] | | | | | (HCC) | Fax: | Fax: | | | | | Procedures | [phone] | [phone] | | | | | SD EST [...] | 2018 | Visit | Preventive at [facility] | [address] | mellitus without | | | | [address] | Ave [place], [place] | complication, with | | | | Mailcode: CH9A | [address] | long-term current | | | | [facility] | [phone] | use of insulin (HCC) | | | | and Healing, | | (Primary Dx); | | | | Building [address] | | Morbid obesity with | | | | [place], [place] | | BMI of 70 and over, | | | | [address] | | adult (HCC) | | | | [phone] | | | +--------+---------+ + + + [...] Priority: 3 Hypoventilation associated with obesity ([facility]) 06/16/2013 Priority: 4 AMARA (obstructive sleep apnea) 04/14/2013 Priority: 4 Overview Note: Cannot tolerate CPAP Severe Morbid obesity ([facility]), BMI 88 11/12/2012 Priority: 4 Overview Note: Lifetime max: 495 lbs Phentermine started Type 2 diabetes mellitus ([facility]) 04/14/2013 Priority: 5 Iron deficiency anemia due to chronic blood loss 11/11/2015 Priority: 6 Overview Note: Ferritin 18 on 10/2015 Hypoalbuminemia (no proteinuria, need to rule out synthetic, nutrition, loss) 6 Priority: 6 Hypothyroidism 08/28/2014 Priority: 8 Morbid obesity with BMI of 70 and over, adult ([facility]) 02/02/2017 Chronic diastolic heart failure (HCC) 02/02/2017 Immobility 02/02/2017 Severe muscle deconditioning 02/02/2017 Personal history of DVT (deep vein thrombosis) 02/02/2017 History of pulmonary embolism 02/02/2017 AMARA treated with BiPAP 02/02/2017 Benign essential HTN 02/02/2017 Diabetes mellitus type 2 without retinopathy ([facility]) 02/02/2017 Hyperlipidemia 02/02/2017 Ventral hernia without obstruction [...] 11/06/2015 Diabetes mellitus with insulin therapy ([facility]) 12/27/2014 Abdominal pain 02/07/2014 Migraine headache 12/05/2013 [...] 1 tablet by mouth once daily CALCIUM CRB&OGQ-E4-HOG29-GENIS [place]AL Take 2 tablets by mouth two [...] jeart failure is manag ed by her editor continuity and script and she was seen by the bariatric surgery group and is now back on tr [facility] for gastric bypass in the upcoming [...] is currently being managed well by her Technical Analyst with diuretics and main tenance of her [...] management of her heart failure by her Technical Analyst 3) Check A1c, lipids 4) Await bariatric [...] Rd | | | | | | [place], [place] | | | | | | [address] | | | | | | [phone] | | | | | | | | +--------+ + + + + | 06/24/ | Surgery | Surgery | Chilo | OPEN VENTRAL HERNIA | | 2018 | | | MD [address] | REPAIR WITH | | | | | [address] | BIOLOGICAL MESH | | | | | [place], [place] | | | | | | [address] | | | | | | [phone] | | | | | | | | +--------+ + + + + | 06/30/ | Office | Cardiology | Randell Franks, | | | 2019 | Visit | | [address] | | | | | | [place], [place] | | | | | | [address] | | | | | | [phone] | | | | | | | [...] | + + + + + | [employer] | [address] | [place], [place] | | | SERVICES, LIPID | [address] | [address] | | + + + + + [...] [facility] | [address] | [place] [address] | | | SERVICES, SPECIAL | [address] | | | | IMM + COAG | | | | + + + + + documented in this encounter Visit Diagnoses + + | Diagnosis | + + | Type 2 diabetes mellitus without complication, with long-term current use of insulin | | ([facility]) - Primary | + + | Morbid obesity with BMI of 70 and over, adult ([facility]) | + + documented in this encounter
--- OUTSIDE RECORDS SUMMARY | ~2019-06-01 | XMS | Encounter Summary ---
Demographics + + + | Address | [address] | | | [place] [address] | + + + | Home Phone [...] [place], [place] | | | | | [address] | | + + + + + | Ellie Vang | ECON | Unknown | | + + + + + Care Team Providers + +------+ + | Care Puttier Name | Role | Phone | + +------+ + | Kenyatta Cardenas MD | PCP | | + +------+ + Encounter Details +--------+ + + + + | Date | Type | Department | Care Team | Description | +--------+ + + + + | 01/26/ | Abstract | Cardiology | Branden Gutiérrez MD | | | 2019 | | Preventive at [facility] | [address] | | | | | [address] | [place], [place] | | | | | Mailcode: CH9A | [address] | | | | | [facility] | [phone] | | | | | and Healing, | | | | | | [address] | | | | | | [place], [place] | | | | | | [address] | | | | | | [phone] | | | +--------+ + + + [...] Rd | | | | | | [facility] [place] | | | | | | [address] | | | | | | [phone] | | | | | | | | +--------+ + + + + | 06/24/ | Surgery | Surgery | Chilo | OPEN VENTRAL HERNIA | | 2018 | | | MD [address] | REPAIR WITH | | | | | [address] | BIOLOGICAL MESH | | | | | [place], [place] | | | | | | [address] | | | | | | [phone] | | | | | | | | +--------+ + + + + | 06/30/ | Office | Cardiology | Randell Franks, | | | 2019 | Visit | | [address] | | | | | | [place], [place] | | | | | | [address] | | | | | | [phone] | | | | | | | | +--------+ + + + + documented as of this encounter Visit Diagnoses Not on filedocumented in this encounter"
--- OUTSIDE RECORDS SUMMARY | ~2019-06-01 | XMS | Encounter Summary ---
Demographics + + + | Address | [address] | | | [place] [address] | + + + | Home Phone [...] [place], [place] | | | | | [address] | | + + + + + | Ellie Vang | ECON | Unknown | | + + + + + Care Team Providers + +------+ + | Care Insurance Verification Rep Name | Role | Phone | + +------+ + | Fadi Goodrich DO | PCP | | + +------+ + Encounter Details +--------+ + + + + | Date | Type | Department | Care Team | Description | +--------+ + + + + | 03/28/ | Abstract | Cardiology | Randell Franks, | | | 2014 | | Preventive at [facility] | MD [address] | | | | | [address] | Ave [place], [place] | | | | | Mailcode: CH9A | [address] | | | | | [facility] | [phone] | | | | | and Healing, | | | | | | Building [address] | | | | | | [place], [place] | | | | | | [address] | | | | | | [phone] | | | +--------+ + + + [...] Rd | | | | | | [place], [place] | | | | | | [address] | | | | | | [phone] | | | | | | | | +--------+ + + + + | 06/24/ | Surgery | Surgery | Chilo, | OPEN VENTRAL HERNIA | | 2018 | | | MD [address] | REPAIR WITH | | | | | [address] | BIOLOGICAL MESH | | | | | [place], [place] | | | | | | [address] | | | | | | [phone] | | | | | | | | +--------+ + + + + | 06/30/ | Office | Cardiology | Randell Franks, | | | 2019 | Visit | | MD [address] | | | | | | Ave [place], [place] | | | | | | [address] | | | | | | [phone] | | | | | | | | +--------+ + + + + documented as of this encounter Visit Diagnoses Not on filedocumented in this encounter"
--- OUTSIDE RECORDS SUMMARY | ~2019-06-01 | XMS | Encounter Summary ---
Demographics + + + | Address | [address] | | | [place] [address] | + + + | Home Phone [...] [place], [place] | | | | | [address] | | + + + + + | Ellie Vang | ECON | Unknown | | + + + + + Care Team Providers + +------+ + | Care Registered Travel Nurse Name | Role | Phone [...] Morbid | | 2018 | Visit | [place] [facility] [address] | [address] | obesity ([facility]), BMI | | | | [address] | [address] | 88 (Primary Dx); | | | | Mailcode: [place] | [place], [place] | Type 2 diabetes | | | | [facility] [employer] and | [address] | mellitus without | | | | Healing, [address] | | complication, with | | | | [place], [place] | | long-term current | | | | [address] | | use of insulin | | | | [phone] | | ([facility]); S/P gastric | | | | | [...] Follow-Up Patient referred by: [place] [address] Documented time of visit: 1:30 to 2:00 (30 minutes uwdl-qx-bsxo with patient) Surgery: Gastric Bypass Date of [...] Allergic rhinitis Anemia Anxiety Bipolar disorder ([facility]) Chronic wound infection of abdomen from 2010 [...] multivitamin & mineral (with iron) supplement, 2/day -0361-3426 mg calcium citrate with vitamin D/day (take [...] in [address],[place] Pager# [phone] Phone: [phone] documented in this en counter Plan of [...] [place] | | | | | | [address] | | | | | | [phone] | | | | | | | | +--------+ + + + + | 06/24/ | Surgery | Surgery | Chilo | OPEN VENTRAL HERNIA | | 2018 | | | MD [address] | REPAIR WITH | | | | | [address] | BIOLOGICAL MESH | | | | | [place] | | | | | | [address] | | | | | | [phone] | | | | | | | | +--------+ + + + + | 06/30/ | Office | Cardiology | Randell Franks, | | | 2019 | Visit | | [address] | | | | | | [place], [place] | | | | | | [address] | | | | | | [phone] | | | | | | | | +--------+ + + + + documented as of this encounter Procedures + +--------+ + + + | Procedure Name | Priori | Date/Time | Associated Diagnosis | Comments | | | ty | | | | + +--------+ + + + | [place] MNT RE-ASSESSMNT | Routin | 03/10/2018 | [...]
--- OUTSIDE RECORDS SUMMARY | ~2019-06-01 | XMS | Encounter Summary ---
Demographics + + + | Address | [address] | | | [place] [address] | + + + | Home Phone [...] [place], [place] | | | | | [address] | | + + + + + | Ellie Vang | ECON | Unknown | | + + + + + Care Team Providers + +------+ + | Care Logistics Operations Manager Name | Role | Phone [...] | | | | | | | [place] [facility] | | | | | | | [facility] and | | | | | | | Healing, | | | | | | | Building [address] | | | | | | | [place], [place] | | | | | | | [address] | | | | | | | Phone: | | | | | | | [phone] | | | | | | | Fax: | | | | | | | [phone] | +--------+--------+ + + + + Encounter [...] | [address] | Les[place] Gutiérrez [place], | 2 diabetes mellitus | | | | Mailcode: Center | [place] [address] | (HCC) | | | | for Health and | | | | | | [facility] 2 | | | | | | [place], [place] | | | | | | [address] | | | | | | [phone] | | | +--------+---------+ + + + [...] of Visit: 12:29 to 12:57 (28 minutes afke-rs-jaxc with patient) SUBJECTIVE: Trying to follow a [...] cauliflower, spinach, broccoli, green beans) and a emgan t (mostly chicken, occasional pork chop or [...] post-surgery diet progression. 4. Call or send Synth[employer] message to dietitian with any questions. Contact information was provided. Follow up with dietitian prior to surgery to review post-surgical recommendations. Yuli Childs RD, CNSC, LD Pager# [phone] documented in this enco unter Plan of [...] Rd | | | | | | [place], [place] | | | | | | [address] | | | | | | [phone] | | | | | | | | +--------+ + + + + | 06/24/ | Surgery | Surgery | Chilo, | OPEN VENTRAL HERNIA | | 2018 | | | MD [address] | REPAIR WITH | | | | | [address] | BIOLOGICAL MESH | | | | | [facility] [place] | | | | | | [address] | | | | | | [phone] | | | | | | | | +--------+ + + + + | 06/30/ | Office | Cardiology | Randell Franks, | | | 2018 | Visit | | [address] | | | | | | [place], [place] | | | | | | [address] | | | | | | [phone] | | | | | | | | +--------+ + + + + documented as of this encounter Procedures + +--------+ + + + | Procedure Name | Priori | Date/Time | Associated Diagnosis | Comments | | | ty | | | | + +--------+ + + + | [place] MNT RE-ASSESSMNT | Routin | 08/28/2014 | [...]
--- OUTSIDE RECORDS SUMMARY | ~2019-06-01 | XMS | Encounter Summary ---
Demographics + + + | Address | [address] | | | [place] [address] | + + + | Home Phone [...] [place], [place] | | | | | [address] | | + + + + + | Ellie Vang | ECON | Unknown | | + + + + + Care Team Providers + +------+ + | Care Biotech Production Specialist Name | Role | Phone | [...] | | | | | | [place] [address] | | | +--------+ + + + [...] Rd | | | | | | [place], [place] | | | | | | [address] | | | | | | [phone] | | | | | | | | +--------+ + + + + | 06/24/ | Surgery | Surgery | Chilo, | OPEN VENTRAL HERNIA | | 2019 | | | MD [address] | REPAIR WITH | | | | | [address] | BIOLOGICAL MESH | | | | | [place] | | | | | | [address] | | | | | | [phone] | | | | | | | | +--------+ + + + + | 06/30/ | Office | Cardiology | Randell Franks, | | | 2018 | Visit | | [address] | | | | | | [place] | | | | | | [address] | | | | | | [phone] | | | | | | | | +--------+ + + + + documented as of this encounter Visit Diagnoses Not on filedocumented in this encounter"
--- OUTSIDE RECORDS SUMMARY | ~2019-06-01 | XMS | Encounter Summary ---
Demographics + + + | Address | [address] | | | [place] [address] | + + + | Home Phone [...] + | Katalina Padilla | ECON | [address] | | | | | [place], [place] | | | | | [address] | | + + + + + | Ellie Vang | ECON | Unknown | | + + + + + Care Team Providers + +------+ + | Care Sales Associate Cashier Name | Role | Phone | [...] | 2015 | Review | Center at [facility] [address] | MD | Decision | | | | [address] | | | | | | Mailcode: [place] | | | | | | [facility] and | | | | | | [facility] 2 | | | | | | [place], [place] | | | | | | [address] | | | | | | [phone] | | | +--------+ + + + [...] Rd | | | | | | [place], [place] | | | | | | [address] | | | | | | [phone] | | | | | | | | +--------+ + + + + | 06/24/ | Surgery | Surgery | Chilo | OPEN VENTRAL HERNIA | | 2018 | | | MD [address] | REPAIR WITH | | | | | [address] | BIOLOGICAL MESH | | | | | [place], [place] | | | | | | [address] | | | | | | [phone] | | | | | | | | +--------+ + + + + | 06/30/ | Office | Cardiology | Randell Franks, | | | 2018 | Visit | | [address] | | | | | | [place] | | | | | | [address] | | | | | | [phone] | | | | | | | | +--------+ + + + + documented as of this encounter Visit Diagnoses Not on filedocumented in this encounter"
--- OUTSIDE RECORDS SUMMARY | ~2019-06-01 | XMS | Encounter Summary ---
Demographics + + + | Address | [address] | | | [place] [address] | + + + | Home Phone [...] [place], [place] | | | | | [address] | | + + + + + | Ellie Vang | ECON | Unknown | | + + + + + Care Team Providers + +------+ + | Care Sports Complex Attendant Name | Role | Phone | [...] | | | | | Procedures | [place], [place] | | | | | | [place]STH[place]I | [address] | | | | | | C | Phone: | | | | | | ECHOCARDIOGR | [phone] | | | | | | AM, ADULT | Fax: | | | | | | | [phone] | | +--------+--------+ + + + + [...] | 2016 | Visit | Preventive at [facility] | [address] | exertion) (Primary | | | | [address] | [place], [place] | Dx) | | | | Mailcode: CH9A | [address] | | | | | [facility] | [phone] | | | | | and [place], | | | | | | Building [address] | | | | | | [place], [place] | | | | | | [address] | | | | | | [phone] | | | +--------+---------+ + + + [...] 500 mg by mouth once daily. CALCIUM CRB&HAT-N8-INF22-GENIS ORAL Take 1 tablet by mouth two [...] himself to the local hospit al in [place] and so this has been delayed. ROS: [...] to lose the additional weight requested by [facility] bariatric surgery group. This current [...] Rd | | | | | | [place], [place] | | | | | | [address] | | | | | | [phone] | | | | | | | | +--------+ + + + + | 06/24/ | Surgery | Surgery | Chilo, | OPEN VENTRAL HERNIA | | 2018 | | | MD [address] | REPAIR WITH | | | | | [address] | BIOLOGICAL MESH | | | | | [place], [place] | | | | | | [address] | | | | | | [phone] | | | | | | | | +--------+ + + + + | 06/30/ | Office | Cardiology | Randell Franks, | | | 2018 | Visit | | [address] | | | | | | Ave [place], [place] | | | | | | [address] | | | | | | [phone] | | | | | | | [...]
--- OUTSIDE RECORDS SUMMARY | ~2019-06-01 | XMS | Encounter Summary ---
Demographics + + + | Address | [address] | | | [place] [address] | + + + | Home Phone [...] [place], [place] | | | | | [address] | | + + + + + | Ellie Vang | ECON | Unknown | | + + + + + Care Team Providers + +------+ + | Care Yacht Builder Name | Role | Phone | [...] Medical Records | | 2013 | | [place] [facility] [address] | [address] | Review ([facility] | | | | [address] | [address] | OUTSIDE RECORDS) | | | | Mailcode: [place] | [place], [place] | | | | | [facility] and | [address] | | | | | [place] [address] | [phone] | | | | | [place], [place] | | | | | | [address] | | | | | | [phone] | | | +--------+ + + + [...] [place] | | | | | | [address] | | | | | | [phone] | | | | | | | | +--------+ + + + + | 06/24/ | Surgery | Surgery | Chilo | OPEN VENTRAL HERNIA | | 2018 | | | MD [address] | REPAIR WITH | | | | | [address] | BIOLOGICAL MESH | | | | | [place] | | | | | | [address] | | | | | | [phone] | | | | | | | | +--------+ + + + + | 06/30/ | Office | Cardiology | Randell Franks, | | | 2019 | Visit | | [address] | | | | | | [place], [place] | | | | | | [address] | | | | | | [phone] | | | | | | | | +--------+ + + + + documented as of this encounter Visit Diagnoses Not on filedocumented in this encounter"
--- OUTSIDE RECORDS SUMMARY | ~2019-06-01 | XMS | Encounter Summary ---
Demographics + + + | Address | [address] | | | [place] [address] | + + + | Home Phone [...] + | Katalina Padilla | ECON | [address] | | | | | [place], [place] | | | | | [address] | | + + + + + | Ellie Vang | ECON | Unknown | | + + + + + Care Team Providers + +------+ + | Care Hair Baler Name | Role | Phone | + [...] NISH EN | | 2017 | | [facility] | MD [address] | Y GASTRIC BYPASS | | | | Admitting Desk | [place], [place] | | | | | Located on the | [address] | | | | | floor [address] [facility] | [phone] | | | | | [address] | | | | | | [place], [place] | | | | | | [address] | | | +--------+---------+ + + + [...] Gavin ACNP - 03/03/2018 9:49 AM PDT [facility] RED SURGERY INPATIENT DISCHARGE SUMMARY Author: KAIN [...] to a bariatric full liquid diets. Our [facility] dietitian was consulted and they [...] at minimum. 5. Follow with PCP for Finishing Wire Sawyer within 1 - 2 weeks of discharge [...] mg by mouth two times daily. CALCIUM CRB&YBI-[id number]-GENIS ORAL Take 2 tablets by mouth two [...] yogurt or kefir. Zaria's Yogurt or Kefir, [place] Yogurt, and Applied Proteomicsn i Kiswahili Yogurt are common brands with beneficial probiotics. [...] over the counter at most [facility] stores. Nausea/Vomiting/Difficulty Swallowing Nausea/Vomiting/Difficulty swallowing: [...] hours per your instructions. Some medications, like Wyano, have Tylenol in it. Make sure you [...] (PCP) as this [facility] does not [facility] services. When to Call [...] hours by calling the surgery office at [phone]. - After hours, weekends and holidays, you may call the hospital lithoduplicator operator at [phone] an d have the business analysis consultant Red Surgery Team paged. OTHER DISCHARGE [...] at minimum. 5. Follow with PCP for Finishing Wire Sawyer within 1 - 2 weeks of discharge [...] Department Dept Phone Center 03/10/2018 1:30 PM [facility] 6th Floor [phone] FO OD AND NUT 03/10/2018 3:05 PM Ronna Clarke Digestive [facility] at [facility] 6th Floor [phone] [facility] 04/01/2018 10:30 AM [facility] 6th Floor [phone] FO OD AND NUT 04/01/2018 11:00 AM Ion Castanon Digestive [facility] at [facility] 6th Floor [phone] [facility] 05/27/2018 2:30 PM [facility] 6th Floor [phone] FO OD AND NUT 05/27/2018 3:05 PM [facility] 6th Floor [phone] [facility] 05/27/2018 4:30 PM Demar C[facility]va [facility] at [facility] 15th Floor [phone] Comprehensiv 06/04/2018 10:35 AM Randell Franks Cardiology Preventive at [facility] [phone] Cardiology Discharging Physician: KAIN Agee Attending Physician: Ion Castanon MD [facility] Red Surgery Pager# [phone] 9:50 AM 03/03/2018 documented in this enco [...] | | 0 | | | | CRB&EDX-[id number]-[id number]-GEN | mouth two times | | | [...] date of discharge 03/03/18 PARTHA Calixto MS3 [facility] [employer] Demarcus Menon MD [...] for care ride home (pt lives in [place]) Demarcus Alas M.D. General Surgery Resident PGY-1 Pager: [phone] Ion Ferrari MD - 10:00 AM [address] [...] [address] | | | | | | [place], [place] | | | | | | [address] | | | | | | [phone] | | | | | | | | +--------+ + + + + | 06/24/ | Surgery | Surgery | Chilo, | OPEN VENTRAL HERNIA | | 2018 | | | MD Jorje [address] | REPAIR WITH | | | | | [address] | BIOLOGICAL MESH | | | | | [place], [place] | | | | | | [address] | | | | | | [phone] | | | | | | | | +--------+ + + + + | 06/30/ | Office | Cardiology | Randell Franks, | | | 2018 | Visit | | [address] | | | | | | [address] [place], [place] | | | | | | [address] | | | | | | [phone] | | | | | | | [...] POC | | PDT | over, adult ([facility]) | results section. | + +--------+ + + + | CAPILLARY BLOOD | Routin | 03/03/2018 | Morbid obesity | Results for this | | GLUCOSE (NO CHG), | e | 7:54 AM | with BMI of 70 and | procedure are in the | | POC | | PDT | over, adult ([facility]) | results section. | + +--------+ + + + | CAPILLARY BLOOD | Routin | 03/03/2018 | Morbid obesity | Results for this | | GLUCOSE (NO CHG), | e | 6:28 AM | with BMI of 70 and | procedure are in the | | POC | | PDT | over, adult ([facility]) | results section. | + +--------+ + + + | CAPILLARY BLOOD | Routin | 03/02/2018 | Morbid obesity | Results for this | | GLUCOSE (NO CHG), | e | 9:17 PM | with BMI of 70 and | procedure are in the | | POC | | PDT | over, adult ([facility]) | results section. | + +--------+ + + + | CAPILLARY BLOOD | Routin | 03/02/2018 | Morbid obesity | Results for this | | GLUCOSE (NO CHG), | e | 6:50 PM | with BMI of 70 and | procedure are in the | | POC | | PDT | over, adult ([facility]) | results section. | + +--------+ + + + | CAPILLARY BLOOD | Routin | 03/02/2018 | Morbid obesity | Results for this | | GLUCOSE (NO CHG), | e | 3:46 PM | with BMI of 70 and | procedure are in the | | POC | | PDT | over, adult ([facility]) | results section. | + +--------+ + + + | CAPILLARY BLOOD | Routin | 03/02/2018 | Morbid obesity | Results for this | | GLUCOSE (NO CHG), | e | 2:36 PM | with BMI of 70 and | procedure are in the | | POC | | PDT | over, adult ([facility]) | results section. | + +--------+ + + + | CAPILLARY BLOOD | Routin | 03/02/2018 | Morbid obesity | Results for this | | GLUCOSE (NO CHG), | e | 1:33 PM | with BMI of 70 and | procedure are in the | | POC | | PDT | over, adult ([facility]) | results section. | + +--------+ + + + | CAPILLARY BLOOD | Routin | 03/02/2018 | Morbid obesity | Results for this | | GLUCOSE (NO CHG), | e | 11:36 AM | with BMI of 70 and | procedure are in the | | POC | | PDT | over, adult ([facility]) | results section. | + +--------+ + + + | CAPILLARY BLOOD | Routin | 03/02/2018 | Morbid obesity | Results for this | | GLUCOSE (NO CHG), | e | 10:32 AM | with BMI of 70 and | procedure are in the | | POC | | PDT | over, adult ([facility]) | results section. | + +--------+ + + + | CAPILLARY BLOOD | Routin | 03/02/2018 | Morbid obesity | Results for this | | GLUCOSE (NO CHG), | e | 9:23 AM | with BMI of 70 and | procedure are in the | | POC | | PDT | over, adult ([facility]) | results section. | + +--------+ + + + | CAPILLARY BLOOD | Routin | 03/02/2018 | Morbid obesity | Results for this | | GLUCOSE (NO CHG), | e | 8:36 AM | with BMI of 70 and | procedure are in the | | POC | | PDT | over, adult ([facility]) | results section. | + +--------+ + + + | CAPILLARY BLOOD | Routin | 03/02/2018 | Morbid obesity | Results for this | | GLUCOSE (NO CHG), | e | 7:35 AM | with BMI of 70 and | procedure are in the | | POC | | PDT | over, adult ([facility]) | results section. | + +--------+ + + + | CAPILLARY BLOOD | Routin | 03/02/2018 | Morbid obesity | Results for this | | GLUCOSE (NO CHG), | e | 6:33 AM | with BMI of 70 and | procedure are in the | | POC | | PDT | over, adult ([facility]) | results section. | + +--------+ + + + | CAPILLARY BLOOD | Routin | 03/02/2018 | Morbid obesity | Results for this | | GLUCOSE (NO CHG), | e | 5:28 AM | with BMI of 70 and | procedure are in the | | POC | | PDT | over, adult ([facility]) | results section. | + +--------+ + + + | CAPILLARY BLOOD | Routin | 03/02/2018 | Morbid obesity | Results for this | | GLUCOSE (NO CHG), | e | 4:36 AM | with BMI of 70 and | procedure are in the | | POC | | PDT | over, adult ([facility]) | results section. | + +--------+ + + + | CAPILLARY BLOOD | Routin | 03/02/2018 | Morbid obesity | Results for this | | GLUCOSE (NO CHG), | e | 2:46 AM | with BMI of 70 and | procedure are in the | | POC | | PDT | over, adult ([facility]) | results section. | + +--------+ + + + | CAPILLARY BLOOD | Routin | 03/02/2018 | Morbid obesity | Results for this | | GLUCOSE (NO CHG), | e | 12:32 AM | with BMI of 70 and | procedure are in the | | POC | | PDT | over, adult ([facility]) | results section. | + +--------+ + + + | CAPILLARY BLOOD | Routin | 03/01/2018 | Morbid obesity | Results for this | | GLUCOSE (NO CHG), | e | 10:31 PM | with BMI of 70 and | procedure are in the | | POC | | PDT | over, adult ([facility]) | results section. | + +--------+ + + + | CAPILLARY BLOOD | Routin | 03/01/2018 | Morbid obesity | Results for this | | GLUCOSE (NO CHG), | e | 8:21 PM | with BMI of 70 and | procedure are in the | | POC | | PDT | over, adult ([facility]) | results section. | + +--------+ + [...] POC | | PDT | over, adult ([facility]) | results section. | + +--------+ + + + | CAPILLARY BLOOD | Routin | 03/01/2018 | Morbid obesity | Results for this | | GLUCOSE (NO CHG), | e | 3:31 PM | with BMI of 70 and | procedure are in the | | POC | | PDT | over, adult ([facility]) | results section. | + +--------+ + + + | CAPILLARY BLOOD | Routin | 03/01/2018 | Morbid obesity | Results for this | | GLUCOSE (NO CHG), | e | 3:29 PM | with BMI of 70 and | procedure are in the | | POC | | PDT | over, adult ([facility]) | results section. | + +--------+ + + + | CAPILLARY BLOOD | Routin | 03/01/2018 | Morbid obesity | Results for this | | GLUCOSE (NO CHG), | e | 2:30 PM | with BMI of 70 and | procedure are in the | | POC | | PDT | over, adult ([facility]) | results section. | + +--------+ + + + | CAPILLARY BLOOD | Routin | 03/01/2018 | Morbid obesity | Results for this | | GLUCOSE (NO CHG), | e | 1:35 PM | with BMI of 70 and | procedure are in the | | POC | | PDT | over, adult ([facility]) | results section. | + +--------+ + + + | CAPILLARY BLOOD | Routin | 03/01/2018 | Morbid obesity | Results for this | | GLUCOSE (NO CHG), | e | 12:16 PM | with BMI of 70 and | procedure are in the | | POC | | PDT | over, adult ([facility]) | results section. | + +--------+ + [...] POC | | PDT | over, adult ([facility]) | results section. | + +--------+ + + + | LAPAROSCOPIC | Electi | 03/01/2018 | Morbid obesity | | | NISH-EN-Y GASTRIC | ve | 8:31 AM | ([facility]) | | | BYPASS | Surgic | [...] | [address] | [place], [place] | | | JUSTINE DAWN OF JAKY | [facility] | [address] | | | TESTS | | | [...] MARQUAM | [address] | [place], [place] | | | JUSTINE DAWN OF CARE | [facility] | [address] | | | TESTS | | | | + + + + + CAPILLARY BLOOD GLUCOSE (NO CHG), POC (03/03/2018 6:28 AM PDT) + +-------+ + + + | Component | Value | Ref Range | Performed | Pathologist | | | | | At | Signature | + +-------+ + + + | BLOOD | 92 | 70 - 99 mg/dL | [facility] - | | | GLUCOSE, [...] MARQUAM | [address] | [place], [place] | | | JUSTINE DAWN OF JAKY | [facility] | [address] | | | TESTS | | | [...] | | JUSTINE DAWN OF JAKY | [address] | [address] | | | TESTS | | | [...] MARQUAM | [address] | [place], [place] | | | [place], POINT OF CARE | [address] | [address] | | | TESTS | | | [...] MARQUAM | [address] | [place], [place] | | | JUSTINE DAWN OF JAKY | [facility] | [address] | | | TESTS | | | [...] [address]OPE[address] | [place], [place] | | | [facility] POINT OF CARE | [address] | [address] | | | TESTS | | | [...] MARQUAM | [address] | [place], [place] | | | JUSTINE DAWN OF CARE | [facility] | [address] | | | TESTS | | | [...] MARQUAM | [address] | [place], [place] | | | JUSTINE DAWN OF JAKY | [facility] | [address] | | | TESTS | | | [...] LOPEZ | [place], [place] | | | [place] POINT OF CARE | [address] | [address] | | | TESTS | | | [...] MARQUAM | [address] | [place], [place] | | | JUSTINE DAWN OF CARE | [facility] | [address] | | | TESTS | | | [...] MARQUAM | [address] | [place], [place] | | | JUSTINE DAWN OF JAKY | [facility] | [address] | | | TESTS | | | [...] LOPEZ | [place], [place] | | | [place] POINT OF CARE | [address] | [address] | | | TESTS | | | [...] MARQUAM | [address] | [place], [place] | | | [facility] [facility]INT [facility] CARE | [address] | [address] | | | TESTS | | | [...] - MARQUAM | [address] | [place], [place] | | | [place] POINT OF CARE | [facility] | [address] | | | TESTS | | | [...] + + + | NKECHI AMES | [address] | [place], [place] | | | [place] POINT OF CARE | [address] | [address] | | | TESTS | | | [...] MARQUAM | [address] | [place], [place] | | | [facility] POINT [facility]ARE | [address] | [address] | | | TESTS | | | [...] - MARQUAM | [address] | [place], [place] | | | [facility] POINT OF CARE | [address] | [address] | | | TESTS | | | [...] + + + | NKECHI AMES | [address] | [place], [place] | | | [facility] POINT OF CARE | [address] | [address] | | | TESTS | | | [...] MARQUAM | [address] | [place], [place] | | | [facility] POINT OF CARE | [address] | [address] | | | TESTS | | | [...] MARQUAM | [address] | [place], [place] | | | JUSTINE DAWN OF JAKY | [facility] | [address] | | | TESTS | | | [...] | [address] | [place], [place] | | | [place] POINT OF CARE | [address] | [address] | | | TESTS | | | [...] MARQUAM | [address] | [place], [place] | | | [facility] POINT OF CARE | [address] | [address] | | | TESTS | | | [...] MARQUAM | [address] | [place], [place] | | | [facility] POINT OF CARE | [facility] | [address] | | | TESTS | | | [...] | [address] | [place], [place] | | | [facility] POINT OF CARE | [address] | [address] | | | TESTS | | | [...] MARQUAM | [address] | [place], [place] | | | [facility] POINT OF CARE | [address] | [address] | | | TESTS | | | [...] The jejunum was divided with 60 mm [place] stapler with white | | | load [...] created in each limb and a 60mm [place] stapler | | | with white load was fired to create a [id number] | | | jejunojejunostomy. The anastamosis was confirmed to be widely | | | patent and hemostatic. The common enterotomy was closed by placing | | | 2 stay sutures along the enterotomy for retraction and firing an | | | [place] 60mm stapler with white load across the [...] | | | was entered. The 60mm [place] stapler with blue load was placed | [...] blue load of the 60mm stapler. The [place] was then fired | | | longitudinally towards the angle of His to create the gastric pouch, | | | leaving the gastrotomy from foreign body removal, on the pouch. | | | Dissection was performed retrogastric to connect posterior and | | | anterior dissection planes and ensure adequate fundus exclusion. | | | Additional fires of the [place] stapler were performed with blue | | [...] with | | | 5 mm clip analytical scientist. A 25mm Orvil was passed transorally by [...] was closed with 60mm | | | [place] stapler with a white load. Medially and [...] the procedure. Ion Castanon MD, FACS, [facility] | | | Bariatric Surgery | [...] The jejunum was divided with 60 mm [place] stapler with white | | | load [...] created in each limb and a 60mm [place] stapler | | | with white load was fired to create a [id number]-[id number] | | | jejunojejunostomy. The anastamosis was confirmed to be widely | | | patent and hemostatic. The common enterotomy was closed by placing | | | 2 stay sutures along the enterotomy for retraction and firing an | | | [place] 60mm stapler with white load across the [...] | posterior to the nish limb. A Ark liver retractor was | | | placed [...] | | | was entered. The 60mm [place] stapler with blue load was placed | [...] blue load of the 60mm stapler. The [place] was then fired | | | longitudinally towards the angle of His to create the gastric pouch, | | | leaving the gastrotomy from foreign body removal, on the pouch. | | | Dissection was performed retrogastric to connect posterior and | | | anterior dissection planes and ensure adequate fundus exclusion. | | | Additional fires of the [place] stapler were performed with blue | | [...] with | | | 5 mm clip analytical scientist. A 25mm Orvil was passed transorally by [...] was closed with 60mm | | | [place] stapler with a white load. Medially and [...] the procedure. Ion Castanon MD, FACS, [facility] | | | Bariatric Surgery | [...] MAR[place]AM | [address] | [place], [place] | | | JUSTINE DAWN OF [facility] | [address] | [address] | | | TESTS | | | [...] | | oral, DAILY, First dose on Tue | | 18 8:50 | | | [...] mg, intramuscular, | | | NEEDED, Starting Tu03/02/18 at | | | 1556, Until Thu03/03/18 [...] OLANZapine (ZYPREXA) tablet 30 | Given | 08/07/20 | 30 mg | | | | [...]
--- OUTSIDE RECORDS SUMMARY | ~2019-06-01 | XMS | Encounter Summary ---
Demographics + + + | Address | [address] | | | [place] [address] | + + + | Home Phone [...] [place], [place] | | | | | [address] | | + + + + + | Ellie Vang | ECON | Unknown | | + + + + + Care Team Providers + +------+ + | Care Insole Cementer Name | Role | Phone | + [...] | | | | | (HCC) | [place], [place] | Mailcode: | | | | | Procedures | [address] | [address] [facility] | | | | | CT ABDOMEN & | Phone: | Hospital | | | | | PELVIS WWO | | [place], [place] | | | | | IV CONTRAST | Fax: | [address] | | | | | [address] CT | [phone] | Phone: | | | | | ABDOMEN&PELV | | [phone] | | | | | IS | | Fax: | | | | | W/CONTRAST | | [phone] | | | | | See chart [...] | 2015 | Encounter | Lab at [facility] [address] | | | | | | [address] Mailcode: | | | | | | [facility] | | | | | | Health and Healing, | | | | | | [place] [address], [facility] | | | | | | Floor [place], [place] | | | | | | [address] | | | | | | [phone] | | | +--------+ + + + [...] Rd | | | | | | [place], [place] | | | | | | [address] | | | | | | [phone] | | | | | | | | +--------+ + + + + | 06/24/ | Surgery | Surgery | Chilo, | OPEN VENTRAL HERNIA | | 2019 | | | MD Jor[address] | REPAIR WITH | | | | | [address] | BIOLOGICAL MESH | | | | | [place], [place] | | | | | | [address] | | | | | | [phone] | | | | | | | | +--------+ + + + + | 06/30/ | Office | Cardiology | Randell Franks, | | | 2018 | Visit | | MD [address] | | | | | | [address] [place], [place] | | | | | | [address] | | | | | | [phone] | | | | | | | [...] + + | JUSTINE PEÑA | [address] [facility] | [place] [address] | | | OF CARE TESTS | | | | + + + + + documented in this encounter Visit Diagnoses + + | Diagnosis | + + | Abdominal pain | + + | Morbid obesity (HCC) Morbid obesity | + + documented in this encounter"
--- OUTSIDE RECORDS SUMMARY | ~2019-06-01 | XMS | Encounter Summary ---
Demographics + + + | Address | [address] | | | [place] [address] | + + + | Home Phone [...] Team Providers + +------+ + | Care Spine Surgeon Name | Role | Phone | [...] Rd | | | | | | [place], [place] | | | | | | [address] | | | | | | [phone] | | | | | | | | +--------+ + + + + | 06/24/ | Surgery | Surgery | Chilo, | OPEN VENTRAL HERNIA | | 2018 | | | MD Jor[address] | REPAIR WITH | | | | | [address] | BIOLOGICAL MESH | | | | | [place], [place] | | | | | | [address] | | | | | | [phone] | | | | | | | | +--------+ + + + + | 06/30/ | Office | Cardiology | Randell Franks, | | | 2018 | Visit | | [address] | | | | | | [place], [place] | | | | | | [address] | | | | | | [phone] | | | | | | | | +--------+ + + + + documented as of this encounter Visit Diagnoses Not on filedocumented in this encounter"
--- OUTSIDE RECORDS SUMMARY | ~2019-06-01 | XMS | Encounter Summary ---
Demographics + + + | Address | [address] | | | [place] [address] | + + + | Home Phone [...] [place], [place] | | | | | [address] | | + + + + + | Ellie Vang | ECON | Unknown | | + + + + + Care Team Providers + +------+ + | Care Control Systems Developer Name | Role | Phone | [...] | | | [address] | [place], [place] | | | | | Mailcode: [place] | [address] | | | | | [facility] | | | | | | [facility] [address] | | | | | | [place], [place] | | | | | | [address] | | | | | | | [...] Rd | | | | | | [place], [place] | | | | | | [address] | | | | | | [phone] | | | | | | | | +--------+ + + + + | 06/24/ | Surgery | Surgery | Chilo | OPEN VENTRAL HERNIA | | 2018 | | | MD [address] | REPAIR WITH | | | | | [address] | BIOLOGICAL MESH | | | | | [place], [place] | | | | | | [address] | | | | | | [phone] | | | | | | | | +--------+ + + + + | 06/30/ | Office | Cardiology | Randell Franks, | | | 2019 | Visit | | [address] | | | | | | [place], [place] | | | | | | [address] | | | | | | [phone] | | | | | | | | +--------+ + + + + documented as of this encounter Visit Diagnoses Not on filedocumented in this encounter"
--- OUTSIDE RECORDS SUMMARY | ~2019-06-01 | XMS | Encounter Summary ---
Demographics + + + | Address | [address] | | | [place] [address] | + + + | Home Phone [...] [place], [place] | | | | | [address] | | + + + + + | Ellie Vang | ECON | Unknown | | + + + + + Care Team Providers + +------+ + | Care Utility Bill Collection Clerk Name | Role | Phone | [...] [facility] | [address] | (phentermine 37.5 mg | | | | [address] | [facility] [place] | ) | | | | Mailcode: LATRELL | [address] | | | | | [facility] | [phone] | | | | | and [address], | | | | | | [address] | | | | | | [place], [place] | | | | | | [address] | | | | | | [phone] | | | +--------+--------+ + + + [...] [place] | | | | | | [address] | | | | | | [phone] | | | | | | | | +--------+ + + + + | 06/24/ | Surgery | Surgery | Chilo, | OPEN VENTRAL HERNIA | | 2018 | | | MD [address] | REPAIR WITH | | | | | [address] | BIOLOGICAL MESH | | | | | [place], [place] | | | | | | [address] | | | | | | [phone] | | | | | | | | +--------+ + + + + | 06/30/ | Office | Cardiology | Randell Franks, | | | 2019 | Visit | | [address] | | | | | | [place], [place] | | | | | | [address] | | | | | | [phone] | | | | | | | | +--------+ + + + + documented as of this encounter Visit Diagnoses Not on filedocumented in this encounter"
--- OUTSIDE RECORDS SUMMARY | ~2019-06-01 | XMS | Encounter Summary ---
Demographics + + + | Address | [address] | | | [place] [address] | + + + | Home Phone [...] [place], [place] | | | | | [address] | | + + + + + | Ellie Vang | ECON | Unknown | | + + + + + Care Team Providers + +------+ + | Care Food Processor Name | Role | Phone | [...] Medical Records | | 2013 | | [place] at [facility] [address] | [address] | Review ([facility] - | | | | [address] | [address] | OUTSIDE RECORDS) | | | | Mailcode: [place] | [place], [place] | | | | | [facility] and | [address] | | | | | [place] [address] | [phone] | | | | | [place], [place] | | | | | | [address] | | | | | | [phone] | | | +--------+ + + + [...] Rd | | | | | | [facility] [place] | | | | | | [address] | | | | | | [phone] | | | | | | | | +--------+ + + + + | 06/24/ | Surgery | Surgery | Chilo | OPEN VENTRAL HERNIA | | 2018 | | | MD [address] | REPAIR WITH | | | | | [address] | BIOLOGICAL MESH | | | | | [place] | | | | | | [address] | | | | | | [phone] | | | | | | | | +--------+ + + + + | 06/30/ | Office | Cardiology | Randell Franks, | | | 2019 | Visit | | [address] | | | | | | [place], [place] | | | | | | [address] | | | | | | [phone] | | | | | | | | +--------+ + + + + documented as of this encounter Visit Diagnoses Not on filedocumented in this encounter"
--- OUTSIDE RECORDS SUMMARY | ~2019-06-01 | XMS | Encounter Summary ---
Demographics + + + | Address | [address] | | | [place] [address] | + + + | Home Phone [...] + | Katalina Padilla | ECON | [address] | | | | | [place], [place] | | | | | [address] | | + + + + + | Ellie Vang | ECON | Unknown | | + + + + + Care Team Providers + +------+ + | Care Computer Aided Design Drafter Name | Role | Phone | [...] [address] | | | | | ([facility]) | [address] | [address] | | | | | Procedures | [place], [place] | [place], [place] | | | | | CONSULT TO | [address] | [address] | | | | | CAR | Phone: | Phone: | | | | | PREVENTATIVE | [phone] | [phone] | | | | | [facility] - | Fax: | Fax: | | | | | LIPIDS | [phone] | [phone] | +--------+--------+ + + + + Reason [...] | | 2 diabetes | [place], | [place], [place] | | | | | mellitus | [place] [address] | [address] | | | | | without | Phone: | Phone: | | | | | complication | [phone] | [phone] | | | | | (HCC) | Fax: | Fax: | | | | | Procedures | [phone] | [phone] | | | | | [place] EST [...] 2017 | Visit | Preventive at [facility] | [address] | hypertension | | | | [address] | Ave [facility] [place] | (Primary Dx); Right | | | | Mailcode: CH9A | [address] | heart failure (HCC) | | | | [facility] | [phone] | | | | | and Healing, | | | | | | Building [address] | | | | | | [place], [place] | | | | | | [address] | | | | | | [phone] | | | +--------+---------+ + + + [...] 1 tablet by mouth once daily CALCIUM CRB&TCJ-J2-JGB00-GENIS ORAL Take 2 tablets by mouth two [...] [place] | | | | | | [address] | | | | | | [phone] | | | | | | | | +--------+ + + + + | 06/24/ | Surgery | Surgery | Chilo, | OPEN VENTRAL HERNIA | | 2018 | | | MD [address] | REPAIR WITH | | | | | [address] | BIOLOGICAL MESH | | | | | [facility] [place] | | | | | | [address] | | | | | | [phone] | | | | | | | | +--------+ + + + + | 06/30/ | Office | Cardiology | Randell Franks, | | | 2018 | Visit | | MD [address] | | | | | | Ave [facility] [place] | | | | | | [address] | | | | | | [phone] | | | | | | | | +--------+ + + + + documented as of this encounter Visit Diagnoses + + | Diagnosis | + + | Essential hypertension - Primary | + + | Right heart failure (HCC) Congestive heart failure, unspecified | + + documented in this encounter
--- OUTSIDE RECORDS SUMMARY | ~2019-06-01 | XMS | Encounter Summary ---
Demographics + + + | Address | [address] | | | [place] [address] | + + + | Home Phone [...] [place], [place] | | | | | [address] | | + + + + + | Ellie Vang | ECON | Unknown | | + + + + + Care Team Providers + +------+ + | Care Director Of Human Resources Name | Role | Phone | + +------+ + | Fadi Goodrich DO | PCP | | + +------+ + Encounter Details +--------+ + + + + | Date | Type | Department | Care Team | Description | +--------+ + + + + | 10/19/ | Abstract | Digestive Health | Clinic, Surgery | | | 2017 | | [place] at [facility] [address] | | | | | | [address] | | | | | | Mailcode: [place] | | | | | | [facility] Health and | | | | | | [facility] 2 | | | | | | [place], [place] | | | | | | [address] | | | | | | [phone] | | | +--------+ + + + [...] [place] | | | | | | [address] | | | | | | [phone] | | | | | | | | +--------+ + + + + | 06/24/ | Surgery | Surgery | Chilo, | OPEN VENTRAL HERNIA | | 2018 | | | MD [address] | REPAIR WITH | | | | | [address] | BIOLOGICAL MESH | | | | | [place], [place] | | | | | | [address] | | | | | | [phone] | | | | | | | | +--------+ + + + + | 06/30/ | Office | Cardiology | Randell Franks, | | | 2019 | Visit | | MD [address] | | | | | | Ave [place], [place] | | | | | | [address] | | | | | | [phone] | | | | | | | | +--------+ + + + + documented as of this encounter Visit Diagnoses Not on filedocumented in this encounter"
--- OUTSIDE RECORDS SUMMARY | ~2019-06-01 | XMS | Encounter Summary ---
Demographics + + + | Address | [address] | | | [place] [address] | + + + | Home Phone [...] [place], [place] | | | | | [address] | | + + + + + | Ellie Vang | ECON | Unknown | | + + + + + Care Team Providers + +------+ + | Care Health Care Specialist Name | Role | Phone | [...] 2012 | | Center at [facility] [address] | ACNP [address] | | | | | [address] | Ave [place], [place] | | | | | Mailcode: [place] | [address] | | | | | for Health and | | | | | | [facility] 2 | | | | | | [facility] [place] | | | | | | [address] | | | | | | | [...] Rd | | | | | | [place], [place] | | | | | | [address] | | | | | | [phone] | | | | | | | | +--------+ + + + + | 06/24/ | Surgery | Surgery | Chilo, | OPEN VENTRAL HERNIA | | 2018 | | | MD Jorje [address] | REPAIR WITH | | | | | [address] | BIOLOGICAL MESH | | | | | [facility] [place] | | | | | | [address] | | | | | | [phone] | | | | | | | | +--------+ + + + + | 06/30/ | Office | Cardiology | Randell Franks, | | | 2018 | Visit | | [address] | | | | | | [place] [facility] [place] | | | | | | [address] | | | | | | [phone] | | | | | | | | +--------+ + + + + documented as of this encounter Visit Diagnoses Not on filedocumented in this encounter"
--- OUTSIDE RECORDS SUMMARY | ~2019-06-01 | XMS | Encounter Summary ---
Demographics + + + | Address | [address] | | | [place] [address] | + + + | Home Phone [...] [place], [place] | | | | | [address] | | + + + + + | Ellie Vang | ECON | Unknown | | + + + + + Care Team Providers + +------+ + | Care Industrial Therapist Name | Role | Phone | [...] | | | [address] | [facility] | | | | | Mailcode: Center | [place], [place] | | | | | [facility] Health and | [address] | | | | | [facility], [facility] 2 | [phone] | | | | | [place], [place] | | | | | | [address] | | | | | | [phone] | | | +--------+ + + + [...] [place] | | | | | | [address] | | | | | | [phone] | | | | | | | | +--------+ + + + + | 06/24/ | Surgery | Surgery | Chilo | OPEN VENTRAL HERNIA | | 2018 | | | Jorje, MD [address] | REPAIR WITH | | | | | [address] | BIOLOGICAL MESH | | | | | [place], [place] | | | | | | [address] | | | | | | [phone] | | | | | | | | +--------+ + + + + | 06/30/ | Office | Cardiology | Randell Franks, | | | 2019 | Visit | | [address] | | | | | | [place] [facility] [place] | | | | | | [address] | | | | | | [phone] | | | | | | | | +--------+ + + + + documented as of this encounter Visit Diagnoses Not on filedocumented in this encounter"
--- OUTSIDE RECORDS SUMMARY | ~2019-06-01 | XMS | Encounter Summary ---
Demographics + + + | Address | [address] | | | [place] [address] | + + + | Home Phone [...] [place], [place] | | | | | [address] | | + + + + + | Ellie Vang | ECON | Unknown | | + + + + + Care Team Providers + +------+ + | Care Oyster Buyer Name | Role | Phone | + [...] | | | Procedures | | Rd [place], | | | | | [place] | | [place] | | | | | INITIAL | | [address] | | | | | ASSESSMNT | [...] | 2012 | Visit | Center at [facility] [address] | [address] | mellitus (HCC) | | | | [address] | [address] | (Primary Dx); Morbid | | | | Mailcode: Center | [place], [place] | obesity (HCC) | | | | for Health and | [address] | | | | | Healing, [place] [address] | | | | | | [place], [place] | | | | | | [address] | | | | | | [phone] | | | +--------+---------+ + + + [...] PDTNutrition appointment, -try keeping food logs online: -www.[email or web address] -[employer] -Juxinli -Aim for 3375-1393 calories a day -Increase physical activity -try [...] portions. Denies any binge eating. Weight change analyst the past year: > 100 lb wt [...] see an RD for 2 years in [place] but insurance quit paying for it. Up [...] 1000/d--a more appropriate long-term range would be 8894-1086/day. Inadequat e calcium intake; did not address [...] w/ meals & snacks 2. Aim for 6841-8690 kcal/d 3. Keep food logs (at least [...] needed. Olga Lidia Mont[place]z RD, [place] Pager [phone] documented in this en counter Plan of [...] Rd | | | | | | [place], [place] | | | | | | [address] | | | | | | [phone] | | | | | | | | +--------+ + + + + | 06/24/ | Surgery | Surgery | Chilo, | OPEN VENTRAL HERNIA | | 2018 | | | MD Jorje [address] | REPAIR WITH | | | | | [address] | BIOLOGICAL MESH | | | | | [facility] [place] | | | | | | [address] | | | | | | [phone] | | | | | | | | +--------+ + + + + | 06/30/ | Office | Cardiology | Randell Franks, | | | 2018 | Visit | | [address] | | | | | | [place], [place] | | | | | | [address] | | | | | | [phone] | | | | | | | [...]
--- OUTSIDE RECORDS SUMMARY | ~2019-06-01 | XMS | Encounter Summary ---
Demographics + + + | Address | [address] | | | [place] [address] | + + + | Home Phone [...] [place], [place] | | | | | [address] | | + + + + + [...] | | 2012 | | Center at [facility] [address] | [employer] ARCHITECT [address] | | | | | [address] [place] | [facility] 350 | | | | | Mailcode: Center | [place], [place] | | | | | [facility] Health and | [address] | | | | | [facility] 2 | [phone] | | | | | [place], [place] | | | | | | [address] | | | | | | [phone] | | | +--------+ + + + [...] Rd | | | | | | [facility] [place] | | | | | | [address] | | | | | | [phone] | | | | | | | | +--------+ + + + + | 06/24/ | Surgery | Surgery | Chilo, | OPEN VENTRAL HERNIA | | 2018 | | | MD Jorje [address] | REPAIR WITH | | | | | [address] | BIOLOGICAL MESH | | | | | [place], [place] | | | | | | [address] | | | | | | [phone] | | | | | | | | +--------+ + + + + | 06/30/ | Office | Cardiology | Randell Franks, | | | 2018 | Visit | | [address] | | | | | | [place], [place] | | | | | | [address] | | | | | | [phone] | | | | | | | | +--------+ + + + + documented as of this encounter Visit Diagnoses Not on filedocumented in this encounter"
--- OUTSIDE RECORDS SUMMARY | ~2019-06-01 | XMS | Encounter Summary ---
Demographics + + + | Address | [address] | | | [place] [address] | + + + | Home Phone [...] [place], [place] | | | | | [address] | | + + + + + | Ellie Vang | ECON | Unknown | | + + + + + Care Team Providers + +------+ + | Care Hearing Instrument Specialist Name | Role | Phone | [...] Order | [address] | [place], [place] | | | | | [address] | [address] | | | | | Rd Mailcode: [facility]83 | [phone] | | | | | Francesco Peres | | | | | | [address] [place], [place] | | | | | | [address] | | | | | | [phone] | | | +--------+ + + + [...] Rd | | | | | | [place], [place] | | | | | | [address] | | | | | | [phone] | | | | | | | | +--------+ + + + + | 06/24/ | Surgery | Surgery | Chilo | OPEN VENTRAL HERNIA | | 2018 | | | MD [address] | REPAIR WITH | | | | | [address] | BIOLOGICAL MESH | | | | | [place], [place] | | | | | | [address] | | | | | | [phone] | | | | | | | | +--------+ + + + + | 06/30/ | Office | Cardiology | Randell Franks, | | | 2019 | Visit | | [address] | | | | | | [place], [place] | | | | | | [address] | | | | | | [phone] | | | | | | | | +--------+ + + + + documented as of this encounter Results EGD (06/23/2018 3:58 PM PST) + + | Specimen | + + | | + + + +--------- -----+ | Narrative | Roseanna parikh At | + +--------- -----+ | MRN: | NKECHI | | [id number] Date: 06/23/2018Patient Name: Elzbieta Curtis #: | ENDOSCOP Y | | [id number] of : 1975CSN: [id number] Type: | | | AmbulatoryRoom: SORProcedure: Upper GI | | | endoscopyIndications: Nausea with vomiting, Status post | | | Cnnh-yb-QUrflzqiow: KALEB MILES MD (Doctor)JOSE | | | NASIMA, Manager Medical Device | | | (Manager Medical Device)Referring MD: DANIELLE GARCÍAPRemateusz | | | Provider: [...] | | | The Olympus [id number] Gastroscope #[id number] was | | | introduced through the [...] endoscope without resistance. The | | | ukglh-oj-jygtsjx limb was characterized by healthy appearing | [...] Initiated On: | | | 06/23/2018 3:58 [facility] Letter to: RADHA MICHAEL DO [...]
--- OUTSIDE RECORDS SUMMARY | ~2019-06-01 | XMS | Encounter Summary ---
Demographics + + + | Address | [address] | | | [place] [address] | + + + | Home Phone [...] [place], [place] | | | | | [address] | | + + [...] Visit | Center at [facility] [address] | | (Primary Dx) | | | | [address] | | | | | | Mailcode: [place] | | | | | | [facility] Health and | | | | | | [facility] 2 | | | | | | [place], [place] | | | | | | [address] | | | | | | [phone] | | | +--------+---------+ + + + [...] of Class: 1055 until 1155 (60 minutes ppfd-ja-cogd with patient) Teaching Methods: PowerPoint and verbal [...] a journal with fluid/protein d. Transportation 7. [employer] for Successful Weight Loss Surgery 8. Surgical [...] Rd | | | | | | [place], [place] | | | | | | [address] | | | | | | [phone] | | | | | | | | +--------+ + + + + | 06/24/ | Surgery | Surgery | Chilo, | OPEN VENTRAL HERNIA | | 2018 | | | MD Jorje [address] | REPAIR WITH | | | | | [address] | BIOLOGICAL MESH | | | | | [place], [place] | | | | | | [address] | | | | | | [phone] | | | | | | | | +--------+ + + + + | 06/30/ | Office | Cardiology | Randell Franks, | | | 2018 | Visit | | [address] | | | | | | [place], [place] | | | | | | [address] | | | | | | [phone] | | | | | | | | +--------+ + + + + documented as of this encounter Visit Diagnoses + + | Diagnosis | + + | Morbid obesity (HCC) - Primary Morbid obesity | + + documented in this encounter"
--- OUTSIDE RECORDS SUMMARY | ~2019-06-01 | XMS | Encounter Summary ---
[...] [place], [place] | | | | | [address] | | + + + + + | Ellie Vang | ECON | Unknown | | + + + + + Care Team Providers + +------+ + | Care Sub Plant Manager Name | Role | Phone | + +------+ + | Fadi Goodrich DO | PCP | | + +------+ + Encounter Details +--------+ + + + + | Date | Type | Department | Care Team | Description | +--------+ + + + + | 10/27/ | Abstract | Digestive Health | Clinic, Surgery | | | 2018 | | [place] at [facility] [address] | | | | | | [address] | | | | | | Mailcode: [place] | | | | | | Health and | | | | | | [facility] 2 | | | | | | [place], [place] | | | | | | [address] | | | | | | [phone] | | | +--------+ + + + [...] Rd | | | | | | [facility] [place] | | | | | | [address] | | | | | | [phone] | | | | | | | | +--------+ + + + + | 06/24/ | Surgery | Surgery | Chilo, | OPEN VENTRAL HERNIA | | 2018 | | | MD [address] | REPAIR WITH | | | | | [address] | BIOLOGICAL MESH | | | | | [place], [place] | | | | | | [address] | | | | | | [phone] | | | | | | | | +--------+ + + + + | 06/30/ | Office | Cardiology | Randell Franks, | | | 2019 | Visit | | MD [address] | | | | | | Ave [place], [place] | | | | | | [address] | | | | | | [phone] | | | | | | | | +--------+ + + + + documented as of this encounter Visit Diagnoses Not on filedocumented in this encounter"
--- OUTSIDE RECORDS SUMMARY | ~2019-06-01 | XMS | Encounter Summary ---
Demographics + + + | Address | [address] | | | [place] [address] | + + + | Home Phone [...] [place], [place] | | | | | [address] | | + + + + + | Ellie Vang | ECON | Unknown | | + + + + + Care Team Providers + +------+ + | Care Van Owner Operator Name | Role | Phone | [...] Rd | | | | | | [place], [place] | | | | | | [address] | | | | | | [phone] | | | | | | | | +--------+ + + + + | 06/24/ | Surgery | Surgery | Chilo, | OPEN VENTRAL HERNIA | | 2018 | | | MD Jorje [address] | REPAIR WITH | | | | | [address] | BIOLOGICAL MESH | | | | | [place], [place] | | | | | | [address] | | | | | | [phone] | | | | | | | | +--------+ + + + + | 06/30/ | Office | Cardiology | Randell Franks, | | | 2018 | Visit | | [address] | | | | | | [place], [place] | | | | | | [address] | | | | | | [phone] | | | | | | | | +--------+ + + + + documented as of this encounter Visit Diagnoses Not on filedocumented in this encounter"
--- OUTSIDE RECORDS SUMMARY | ~2019-06-01 | XMS | Encounter Summary ---
Demographics + + + | Address | [address] | | | [place] [address] | + + + | Home Phone [...] [place], [place] | | | | | [address] | | + + + + + [...] Surgery | | | 2016 | | [place] [address] [address] | | | | | | [address] | | | | | | Mailcode: [place] | | | | | | [facility] Health and | | | | | | [facility] 2 | | | | | | [place], [place] | | | | | | [address] | | | | | | [phone] | | | +--------+ + + + [...] [place] | | | | | | [address] | | | | | | [phone] | | | | | | | | +--------+ + + + + | 06/24/ | Surgery | Surgery | Chilo, | OPEN VENTRAL HERNIA | | 2018 | | | MD [address] | REPAIR WITH | | | | | [address] | BIOLOGICAL MESH | | | | | [place], [place] | | | | | | [address] | | | | | | [phone] | | | | | | | | +--------+ + + + + | 06/30/ | Office | Cardiology | Randell Franks, | | | 2019 | Visit | | [address] | | | | | | Ave [place], [place] | | | | | | [address] | | | | | | [phone] | | | | | | | | +--------+ + + + + documented as of this encounter Visit Diagnoses Not on filedocumented in this encounter"
--- OUTSIDE RECORDS SUMMARY | ~2019-06-01 | XMS | Encounter Summary ---
Demographics + + + | Address | [address] | | | [place] [address] | + + + | Home Phone [...] [place], [place] | | | | | [address] | | + + + + + | Ellie Vang | ECON | Unknown | | + + + + + Care Team Providers + +------+ + | Care Gusset Stitcher Name | Role | Phone | [...] 2017 | | Preventive at [facility] | MD [address] | Request ([address] | | | | [address] | Ave [facility] [place] | mg) | | | | Mailcode: [place] | [address] | | | | | [facility] | [phone] | | | | | and [place], | | | | | | Building [address] | | | | | | [place], [place] | | | | | | [address] | | | | | | [phone] | | | +--------+ + + + [...] Rd | | | | | | [place] | | | | | | [address] | | | | | | [phone] | | | | | | | | +--------+ + + + + | 06/24/ | Surgery | Surgery | Chilo, | OPEN VENTRAL HERNIA | | 2018 | | | MD [address] | REPAIR WITH | | | | | [address] | BIOLOGICAL MESH | | | | | [place], [place] | | | | | | [address] | | | | | | [phone] | | | | | | | | +--------+ + + + + | 06/30/ | Office | Cardiology | Randell Franks, | | | 2019 | Visit | | MD [address] | | | | | | [place], [place] | | | | | | [address] | | | | | | [phone] | | | | | | | | +--------+ + + + + documented as of this encounter Visit Diagnoses Not on filedocumented in this encounter"
--- OUTSIDE RECORDS SUMMARY | ~2019-06-01 | XMS | Encounter Summary ---
Demographics + + + | Address | [address] | | | [place] [address] | + + + | Home Phone [...] [place], [place] | | | | | [address] | | + + + + + | Ellie Vang | ECON | Unknown | | + + + + + Care Team Providers + +------+ + | Care File Clerk Data Entry Name | Role | Phone | + [...] 2015 | Visit | Center at [facility] [address] | | (Primary Dx) | | | | [address] | | | | | | Mailcode: Center | | | | | | for Health and | | | | | | [facility] 2 | | | | | | [place], [place] | | | | | | [address] | | | | | | [phone] | | | +--------+---------+ + + + [...] of Class: 2:00 until 3:00 (60 minutes ygce-wt-fhet with patient) OBJECTIVE: Height: Ht Readings from [...] or sharing information. Yes Yuli Childs RD, [facility], [place] Pager# [phone] documented in this enc ounter Plan of [...] [place] | | | | | | [address] | | | | | | [phone] | | | | | | | | +--------+ + + + + | 06/24/ | Surgery | Surgery | Chilo, | OPEN VENTRAL HERNIA | | 2018 | | | MD Jorje [address] | REPAIR WITH | | | | | [address] | BIOLOGICAL MESH | | | | | [place], [place] | | | | | | [address] | | | | | | [phone] | | | | | | | | +--------+ + + + + | 06/30/ | Office | Cardiology | Randell Franks, | | | 2018 | Visit | | [address] | | | | | | [place], [place] | | | | | | [address] | | | | | | [phone] | | | | | | | | +--------+ + + + + documented as of this encounter Visit Diagnoses + + | Diagnosis | + + | Morbid obesity (HCC) - Primary Morbid obesity | + + documented in this encounter
--- OUTSIDE RECORDS SUMMARY | ~2019-06-01 | XMS | Encounter Summary ---
Demographics + + + | Address | [address] | | | [place] [address] | + + + | Home Phone [...] [place], [place] | | | | | [address] | | + + + + + | Ellie Vang | ECON | Unknown | | + + + + + Care Team Providers + +------+ + | Care Bakery Worker Name | Role | Phone | [...] | | | | and over, | [place], [place] | [facility] | | | | | adult (HCC) | [address] | for Health | | | | | Severe | Phone: | and Healing, | | | | | muscle | | Building 1, | | | | | deconditioni | Fax: | [address] | | | | | ng | [phone] | [place], [place] | | | | | Procedures | | [address] | | | | | PHYSICAL | | Phone: | | | | | THERAPY | | [phone] | | | | | REFERRAL | | Fax: | | | | | | | [phone] | +--------+--------+ + + + + Encounter Details +--------+ + + + + | Date | Type | Department | Care Team | Description | +--------+ + + + + | 02/02/ | Natural Resources Specialist | Digestive Health | Shereen Georges, | Morbid obesity with | | 2017 | | Center at [facility] [address] | ACNP [address] | BMI of 70 and over, | | | | [address] | [address] [facility] [place] | adult (HCC) (Primary | | | | Mailcode: Center | [address] | Dx); Severe muscle | | | | for Health and | | deconditioning | | | | Healing, Building 2 | | | | | | [place], [place] | | | | | | [address] | | | | | | | [...] Rd | | | | | | [place], [place] | | | | | | [address] | | | | | | [phone] | | | | | | | | +--------+ + + + + | 06/24/ | Surgery | Surgery | Chilo, | OPEN VENTRAL HERNIA | | 2018 | | | MD [address] | REPAIR WITH | | | | | [address] | BIOLOGICAL MESH | | | | | [place], [place] | | | | | | [address] | | | | | | [phone] | | | | | | | | +--------+ + + + + | 06/30/ | Office | Cardiology | Randell Franks, | | | 2018 | Visit | | MD [address] | | | | | | [place], [place] | | | | | | [address] | | | | | | [phone] | | | | | | | [...]
--- OUTSIDE RECORDS SUMMARY | ~2019-06-01 | XMS | Encounter Summary ---
Demographics + + + | Address | [address] | | | [place] [address] | + + + | Home Phone [...] + | Katalina Padilla | ECON | [address] | | | | | [place], [place] | | | | | [address] | | + + + + + | Ellie Vang | ECON | Unknown | | + + + + + Care Team Providers + +------+ + | Care Director Of Student Financial Aid Name | Role | Phone | + +------+ + | Kenyatta Cardenas MD | PCP | | + +------+ + Encounter Details +--------+ + + + + | Date | Type | Department | Care Team | Description | +--------+ + + + + | 03/18/ | Transcribe | [facility] al[facility] | Transcribe | | | 2019 | Orders | [facility] | Encounter, Provider, | | | | | [address] Mailcode: | [address] | | | | | [place] for | [place] [address] | | | | | Health and Healing, | | | | | | Building [address] | | | | | | [place], [place] | | | | | | [address] | | | | | | [phone] | | | +--------+ + + + [...] Rd | | | | | | [place], [place] | | | | | | [address] | | | | | | [phone] | | | | | | | | +--------+ + + + + | 06/24/ | Surgery | Surgery | Chilo | OPEN VENTRAL HERNIA | | 2018 | | | MD [address] | REPAIR WITH | | | | | [address] | BIOLOGICAL MESH | | | | | [place], [place] | | | | | | [address] | | | | | | [phone] | | | | | | | | +--------+ + + + + | 06/30/ | Office | Cardiology | Randell Franks, | | | 2018 | Visit | | [address] | | | | | | [place], [place] | | | | | | [address] | | | | | | [phone] | | | | | | | | +--------+ + + + + documented as of this encounter Results EGD (04/07/2019 10:53 AM PDT) + + | Specimen | + + | | + + + + + | Narrative | Performed At | + + + | MRN: | [facility] | | [id number] Date: 04/07/2019Patient Name: Elzbieta Curtis #: | ENDOSCOPY | | [id number] of : 1975CSN: [id number] Type: | | | AmbulatoryRoom: Endo 5Procedure: Upper GI | | | endoscopyIndications: Generalized abdominal pain, Nausea | | | with vomitingProviders: TAL LUND MD | | | (Doctor), BERNARDO BERNARD RN (Nurse), | | | EREN SLATER (Technology Specialist)Referring MD: SYLVIA Kilpatrick | | | [...] | | | The Olymp[employer] [id number] Endoscope #[id number] | | | was introduced through the [...]
--- OUTSIDE RECORDS SUMMARY | ~2019-06-01 | XMS | Encounter Summary ---
Demographics + + + | Address | [address] | | | [place] [address] | + + + | Home Phone [...] [place], [place] | | | | | [address] | | + + + + + | Ellie Vang | ECON | Unknown | | + + + + + Care Team Providers + +------+ + | Care Heel Trimmer Name | Role | Phone | [...] | | [address] | [place], [place] | | | | | Mailcode: Glide | [address] | | | | | for Health and | [phone] | | | | | [facility] 2 | | | | | | [place], [place] | | | | | | [address] | | | | | | [phone] | | | +--------+ + + + [...] [place] | | | | | | [address] | | | | | | [phone] | | | | | | | | +--------+ + + + + | 06/24/ | Surgery | Surgery | Chilo, | OPEN VENTRAL HERNIA | | 2018 | | | MD [address] | REPAIR WITH | | | | | [address] | BIOLOGICAL MESH | | | | | [place] | | | | | | [address] | | | | | | [phone] | | | | | | | | +--------+ + + + + | 06/30/ | Office | Cardiology | Randell Franks, | | | 2019 | Visit | | MD [address] | | | | | | [place], [place] | | | | | | [address] | | | | | | [phone] | | | | | | | | +--------+ + + + + documented as of this encounter Visit Diagnoses Not on filedocumented in this encounter"
--- OUTSIDE RECORDS SUMMARY | ~2019-06-01 | XMS | Encounter Summary ---
Demographics + + + | Address | [address] | | | [place] [address] | + + + | Home Phone [...] [place], [place] | | | | | [address] | | + + + + + [...] | | | 2014 | Event | [facility] | MD Raza [address] | | | | | Admitting Desk | [address] | | | | | Located on the 9 | [place], [place] | | | | | floor [address] | [address] | | | | | [address] | [phone] | | | | | [place], [place] | | | | | | [address] | Marcial Brunner CRNA | | | | | | [address] | | | | | | Lesly Gutiérrez [place], | | | | | | [place] [address] | | | | | | [phone] | | | | | | | [...] Rd | | | | | | [place], [place] | | | | | | [address] | | | | | | [phone] | | | | | | | | +--------+ + + + + | 06/24/ | Surgery | Surgery | Chilo, | OPEN VENTRAL HERNIA | | 2018 | | | MD Jorje [address] | REPAIR WITH | | | | | [address] | BIOLOGICAL MESH | | | | | [place], [place] | | | | | | [address] | | | | | | [phone] | | | | | | | | +--------+ + + + + | 06/30/ | Office | Cardiology | Randell Franks, | | | 2018 | Visit | | [address] | | | | | | [place], [place] | | | | | | [address] | | | | | | [phone] | | | | | | | [...] 11:31 | | | | | Starting Jasmyen 03/01/15 at 1131, | | AM PDT [...]
--- OUTSIDE RECORDS SUMMARY | ~2019-06-01 | XMS | Encounter Summary ---
Demographics + + + | Address | [address] | | | [place] [address] | + + + | Home Phone [...] [place], [place] | | | | | [address] | | + + + + + | Ellie Vang | ECON | Unknown | | + + + + + Care Team Providers + +------+ + | Care Ore Feeder Name | Role | Phone | + +------+ + | Fadi Goodrich DO | PCP | | + +------+ + Encounter Details +--------+------+ + + + | Date | Type | Department | Care Team | Description | +--------+------+ + + + | 06/16/ | Lab | Laboratory at [facility] | | Morbid obesity with | | 2012 | | [address] | | BMI of 70 and over, | | | | [place], [place] | | adult (HCC); Vitamin | | | | [address] | | D deficiency | | | | [phone] | | disease; | | | | [...] Rd | | | | | | [place], [place] | | | | | | [address] | | | | | | [phone] | | | | | | | | +--------+ + + + + | 06/24/ | Surgery | Surgery | Chilo, | OPEN VENTRAL HERNIA | | 2018 | | | MD Jorje [address] | REPAIR WITH | | | | | [address] | BIOLOGICAL MESH | | | | | [place], [place] | | | | | | [address] | | | | | | [phone] | | | | | | | | +--------+ + + + + | 06/30/ | Office | Cardiology | Randell Franks, | | | 2018 | Visit | | [address] | | | | | | Ave [place], [place] | | | | | | [address] | | | | | | [phone] | | | | | | | [...] | | | PST | over, adult ([facility]) | results section. | | | | | Vitamin D deficiency | | | | | | disease | | | | | | Intertriginous | | | | | | candidiasis | | | | | | 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| | ([facility]) HTN | | | | | [...] | | | | | | obesity ([facility]) PCOS | | | | | [...] | | | | | by [facility],[address] | | | | [address], [place] | | | | | | [address] | | | | | | [phone] | | | | | | Mt [...] at | | | | | | [employer] [facility] | | | | | | developed and | | | | | | characteristics | | | | | | determined by | | | | | | [facility]. See | | | | | | Compliance Statement B: | | | | | | [employer]CS | | | | + + + + + + + + | Specimen | + + | Blood - Blood | + + + + + + + | Performing | Address | City/State/Zipcode | Phone Number | | Organization | | | | + + + + + | [facility] | [address] | [place], [place] | | | [facility] | | [address] | | + + + + + [...]
--- OUTSIDE RECORDS SUMMARY | ~2019-06-01 | XMS | Encounter Summary ---
[...] Providers + +------+ + | Care Drill Press Operator For Metal Name | Role | Phone | [...] | | | 2017 | Event | [facility] | MD Jodie,PhD [address] | | | | | Admitting Desk | [address] | | | | | Located on the 9 | [facility] [place] | | | | | floor [address] | [address] | | | | | [address] | [phone] | | | | | [place], [place] | | | | | | [address] | Jason Balbuena | | | | | | MD Twin [address] | | | | | | [address] | | | | | | [place], [place] | | | | | | [address] | | | | | | [phone] | | | | | | | [...] Rd | | | | | | [place] | | | | | | [address] | | | | | | [phone] | | | | | | | | +--------+ + + + + | 06/24/ | Surgery | Surgery | Chilo | OPEN VENTRAL HERNIA | | 2018 | | | MD [address] | REPAIR WITH | | | | | [address] | BIOLOGICAL MESH | | | | | [place], [place] | | | | | | [address] | | | | | | [phone] | | | | | | | | +--------+ + + + + | 06/30/ | Office | Cardiology | Randell Franks, | | | 2019 | Visit | | [address] | | | | | | [place], [place] | | | | | | [address] | | | | | | [phone] | | | | | | | [...]
--- OUTSIDE RECORDS SUMMARY | ~2019-06-01 | XMS | Encounter Summary ---
Demographics + + + | Address | [address] | | | [place] [address] | + + + | Home Phone [...] [place], [place] | | | | | [address] | | + + + + + | Ellie Vang | ECON | Unknown | | + + + + + Care Team Providers + +------+ + | Care Valet Service Attendant Name | Role | Phone [...] | 2015 | Visit | Center at [facility] [address] | | (Primary Dx) | | | | [address] | | | | | | Mailcode: Center | | | | | | for Health and | | | | | | [facility] 2 | | | | | | [place], [place] | | | | | | [address] | | | | | | [phone] | | | +--------+---------+ + + + [...] of Class: 2:00 until 3:00 (60 minutes ckro-us-lavv with patient) OBJECTIVE: Height: Ht Readings from [...] information. Yes Y[address], [facility], [place] Pager# [phone] documented in this enc ounter Plan of [...] [place] | | | | | | [address] | | | | | | [phone] | | | | | | | | +--------+ + + + + | 06/24/ | Surgery | Surgery | Chilo, | OPEN VENTRAL HERNIA | | 2018 | | | MD Jorje [address] | REPAIR WITH | | | | | [address] | BIOLOGICAL MESH | | | | | [place], [place] | | | | | | [address] | | | | | | [phone] | | | | | | | | +--------+ + + + + | 06/30/ | Office | Cardiology | Randell Franks, | | | 2018 | Visit | | [address] | | | | | | [place], [place] | | | | | | [address] | | | | | | [phone] | | | | | | | | +--------+ + + + + documented as of this encounter Visit Diagnoses + + | Diagnosis | + + | Morbid obesity (HCC) - Primary Morbid obesity | + + documented in this encounter
--- OUTSIDE RECORDS SUMMARY | ~2019-06-01 | XMS | Encounter Summary ---
Demographics + + + | Address | [address] | | | [place] [address] | + + + | Home Phone [...] [place], [place] | | | | | [address] | | + + + + + | Ellie Vang | ECON | Unknown | | + + + + + Care Team Providers + +------+ + | Care Employee Wellness/Fitness Coordinator Name | Role | Phone | [...] [id number] | | | | | | [facility] | | | | | | [place], [place] | | | | | | [address] | | | | | | [phone] | | | +--------+ + + + [...] Rd | | | | | | [place], [place] | | | | | | [address] | | | | | | [phone] | | | | | | | | +--------+ + + + + | 06/24/ | Surgery | Surgery | Chilo, | OPEN VENTRAL HERNIA | | 2018 | | | MD Jorje [address] | REPAIR WITH | | | | | [address] | BIOLOGICAL MESH | | | | | [place], [place] | | | | | | [address] | | | | | | [phone] | | | | | | | | +--------+ + + + + | 06/30/ | Office | Cardiology | Randell Franks, | | | 2018 | Visit | | MD [address] | | | | | | [address] [place], [place] | | | | | | [address] | | | | | | [phone] | | | | | | | | +--------+ + + + + documented as of this encounter Visit Diagnoses Not on filedocumented in this encounter"
--- OUTSIDE RECORDS SUMMARY | ~2019-06-01 | XMS | Encounter Summary ---
Demographics + + + | Address | [address] | | | [place] [address] | + + + | Home Phone [...] [place], [place] | | | | | [address] | | + + + + + | Ellie Vang | ECON | Unknown | | + + + + + Care Team Providers + +------+ + | Care Vault Worker Name | Role | Phone | + +------+ + | Fadi Goodrich DO | PCP | | + +------+ + Encounter Details +--------+------+ + + + | Date | Type | Department | Care Team | Description | +--------+------+ + + + | 08/28/ | Lab | Laboratory at [facility] | | Type 2 diabetes | | 2015 | | [address] | | mellitus (HCC) | | | | [place], [place] | | | | | | [address] | | | | | | [phone] | | | +--------+------+ + + + [...] Rd | | | | | | [place], [place] | | | | | | [address] | | | | | | [phone] | | | | | | | | +--------+ + + + + | 06/24/ | Surgery | Surgery | Chilo, | OPEN VENTRAL HERNIA | | 2018 | | | MD Jorje [address] | REPAIR WITH | | | | | [address] | BIOLOGICAL MESH | | | | | [place], [place] | | | | | | [address] | | | | | | [phone] | | | | | | | | +--------+ + + + + | 06/30/ | Office | Cardiology | Randell Franks, | | | 2018 | Visit | | [address] | | | | | | [place], [place] | | | | | | [address] | | | | | | [phone] | | | | | | | [...] + + + + | [facility] | [address] [facility] [address] | [place] [address] | | | [address] | CLARENCE [...] | [facility] | [address] | [place] [address] | | | SERVICES, SPECIAL | PARK [...]
--- OUTSIDE RECORDS SUMMARY | ~2019-06-01 | XMS | Encounter Summary ---
Demographics + + + | Address | [address] | | | [place] [address] | + + + | Home Phone [...] [place], [place] | | | | | [address] | | + + + + + | Ellie Vang | ECON | Unknown | | + + + + + Care Team Providers + +------+ + | Care Firebreak Cutter Name | Role | Phone | [...] Rd | | | | | | [place], [place] | | | | | | [address] | | | | | | [phone] | | | | | | | | +--------+ + + + + | 06/24/ | Surgery | Surgery | Chilo, | OPEN VENTRAL HERNIA | | 2018 | | | MD Jorje [address] | REPAIR WITH | | | | | [address] | BIOLOGICAL MESH | | | | | [place], [place] | | | | | | [address] | | | | | | [phone] | | | | | | | | +--------+ + + + + | 06/30/ | Office | Cardiology | Randell Franks, | | | 2018 | Visit | | [address] | | | | | | [place], [place] | | | | | | [address] | | | | | | [phone] | | | | | | | | +--------+ + + + + documented as of this encounter Visit Diagnoses Not on filedocumented in this encounter"
--- OUTSIDE RECORDS SUMMARY | ~2019-06-01 | XMS | Encounter Summary ---
Demographics + + + | Address | [address] | | | [place] [address] | + + + | Home Phone [...] [place], [place] | | | | | [address] | | + + + + + | Ellie Vang | ECON | Unknown | | + + + + + Care Team Providers + +------+ + | Care Management Sme Name | Role | Phone | + [...] 2012 | | Center at [facility] [address] | MD [address] | | | | | [address] | [facility] | | | | | Mailcode: Center | [place], [place] | | | | | [facility] Health and | [address] | | | | | [facility] 2 | [phone] | | | | | [place], [place] | | | | | | [address] | | | | | | [phone] | | | +--------+ + + + [...] | | | | | | [place], [place] | | | | | | [address] | | | | | | [phone] | | | | | | | | +--------+ + + + + | 06/24/ | Surgery | Surgery | Chilo, | OPEN VENTRAL HERNIA | | 2018 | | | MD Jorje [address] | REPAIR WITH | | | | | [address] | BIOLOGICAL MESH | | | | | [facility] [place] | | | | | | [address] | | | | | | [phone] | | | | | | | | +--------+ + + + + | 06/30/ | Office | Cardiology | Randell Franks, | | | 2018 | Visit | | [address] | | | | | | [place] [facility] [place] | | | | | | [address] | | | | | | [phone] | | | | | | | | +--------+ + + + + documented as of this encounter Visit Diagnoses Not on filedocumented in this encounter"
--- OUTSIDE RECORDS SUMMARY | ~2019-06-01 | XMS | Encounter Summary ---
Demographics + + + | Address | [address] | | | [place] [address] | + + + | Home Phone [...] [place], [place] | | | | | [address] | | + + + + + | Ellie Vang | ECON | Unknown | | + + + + + Care Team Providers + +------+ + | Care Production Control Planner Name | Role | Phone | [...] | | | [address] | [facility] | | | | | Mailcode: Center | [place], [place] | | | | | [facility] and | [address] | | | | | [facility] 2 | [phone] | | | | | [place], [place] | | | | | | [address] | | | | | | [phone] | | | +--------+ + + + [...] | | | | | | [place], [place] | | | | | | [address] | | | | | | [phone] | | | | | | | | +--------+ + + + + | 06/24/ | Surgery | Surgery | Chilo | OPEN VENTRAL HERNIA | | 2018 | | | Jorje, MD [address] | REPAIR WITH | | | | | [address] | BIOLOGICAL MESH | | | | | [place], [place] | | | | | | [address] | | | | | | [phone] | | | | | | | | +--------+ + + + + | 06/30/ | Office | Cardiology | Randell Franks, | | | 2019 | Visit | | [address] | | | | | | [place] [facility] [place] | | | | | | [address] | | | | | | [phone] | | | | | | | | +--------+ + + + + documented as of this encounter Visit Diagnoses Not on filedocumented in this encounter"
--- OUTSIDE RECORDS SUMMARY | ~2019-06-01 | XMS | Clinical Summary ---
Demographics + + + | Address | [address] | | | [place] [address] | + + + | Home Phone [...] + + | Author | [facility] | + + + | Organization | [facility] | + [...] [place], [place] | | | | | [address] | | + + + + + | Ellie Vang | ECON | Unknown | | + + + + + Care Team Providers + +------+ + | Care Corporate Compliance Director Name | Role | Phone | + +------+ + | Kenyatta Hylton MD | PCP | | + +------+ + Source Comments NKECHI is fully live on both EpicCare Ambulatory and EpicCare InPatient.[facility] Allergies + + + + + [...] 0 | | | Activ | | [id number] | mouth two times | | | [...] + + + + | 03/02/ | Media Services Specialist | Surgery | Keren Allen, | | [...] [address] | | | | | | [place], [place] | | | | | | [address] | | | | | | [phone] | | | | | | | | +--------+ + + + + | 06/24/ | Surgery | Surgery | Chilo, | OPEN VENTRAL HERNIA | | 2018 | | | MD Jorje [address] | REPAIR WITH | | | | | [address] | BIOLOGICAL MESH | | | | | [place], [place] | | | | | | [address] | | | | | | [phone] | | | | | | | | +--------+ + + + + | 06/30/ | Office | Cardiology | Aly Franks, | | | 2018 | Visit | | [address] | | | | | | [place], [place] | | | | | | [address] | | | | | | [phone] | | | | | | | [...] - | | | | | | /[address] | | [id number]: Qty: 1 on | | | | [...] - | | | | | | /078[address] | | [id number]: Qty: 1 on | | | | | | 173 | | 03/01/2018 by Ion Pandey | | | | | | | | MD Vinicius at [facility] RE[facility] | | | | [...] AMES | [address] | [place], [place] | | | JUSTINE DAWN OF JAKY | [address] | [address] | | | TESTS | | | [...] [facility] | [address] | [place] [address] | | | SERVICES, CORE | CLARENCE [...] MDRD equation recommended by the National | [facility] | | Kidney Disease Education Program. Estimated [...] [facility] | [address] | [place] [address] | | | SERVICES, CORE | CLARENCE [...] [facility] | [address] | [place] [address] | | | SERVICES, CORE | PARK [...] [facility] | [address] | [place] [address] | | | SERVICES, CORE | CLARENCE [...] 5-6 weeks | | | 850 - 52845 6-7 weeks | | | 4000 - 159665 7-12 weeks | | | 55528 - 069278 12-16 weeks | | | 44403 - 995097 16-29 | | | weeks 1400 - 81485 | | | 29-41 weeks 940 - 57773 | | | This test has not been approved for use as a tumor marker in | | | males or females. | | + + + + + + + + | Performing | Address | City/State/Zipcode | Phone Number | | Organization | | | | + + + + + | [facility] | [address] | [place] [address] | | | SERVICES, [place] | [address] | | | + + + + + ED INFORMATION EXCHANGE (05/13/2019 5:14 PM PDT) + + | Specimen | + + | | + + + + + | Narrative | Performed At | + + + | COLLECTIVE?NOTIFICATION?05/13/2019 17:13?DYLAN ROMERO?MRN: | COLLECTIVE | | [id number] Criteria Met Has Guidelines PDMP Security | MEDICAL | | and Safety No recent Security Events currently on file ED Care | TECHNOLOGIES | | Guidelines from [facility] Last Updated: 12/06/18 9:53 AM | | | Care Coordination: Receiving mental health services with | | | Missingames.? Please contact Missingames for mental health concerns.? | | | Sarah/Toni Centeno: [phone]? Kishan: [phone].? | | | These are guidelines and the provider should exercise clinical | | | judgment when providing care. Care History Medical/Surgical | | | 05/11/19 12:00 AM [facility] Patient is | | | currently established with [facility]. If patient is seen in | | | the ED during business hours. Please contact CHWs at [facility] | | | Clinic. 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 1 | | | [facility] 2 Total 4 Note: Visits indicate total | | | known visits. Recent Emergency Department Visit Summary Date | | | Facility City State Type Diagnoses or Chief Complaint May 13, 2019 | | | [facility] [place] Emergency | | | 10,800. A303 May 10, 2019 [facility] 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 [place] Emergency RIGHT LEG PAIN DUE TO FALL | | | Strain of unsp musc/tend at lower leg level, right leg, init Jul | | | 27, 2019 [facility] 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 | | | Care Team Provider Specialty Phone Fax Service Dates Treva, | | | Rob Radio Interference Supervisor/Rn Support Services Mar 27, 2018 - | | | Current Bernard Hylton MD Internal Medicine: Pulmonary Disease | | | Aug 23, 2018 - Current Ayalog[employer] Portal This patient has | | | registered at the [facility] Emergency | | | Department For more information visit: | | | [email or web address] | | | [email or web address] PLEASE NOTE: 1. Any care recommendations [...] or completeness of information provided. ? 2019 [employer] | | | [employer] | | + + + + + | Procedure Note | + + | Service Account, Rtf Results Inbound - 05/13/2019 5:16 PM PDT Formatting of this | | note might be different from the original.COLLECTIVE?NOTIFICATION?05/13/2019 | | 17:13?DYLAN ROMERO? [facility] Has Guidelines PDMPSecurity and | | SafetyNo recent Security Events currently on fileED Care Guidelines from Missingames - | | [place] Updated: 12/06/18 9:53 AM Care Coordination:Receiving mental health | | services with Missing[facility].? Please contact Missing[facility] for mental health concerns.? | | Sarah/Toni Centeno: [phone]? Kishan: [phone].?These are guidelines | | and the provider should exercise clinical judgment when providing care.Care | | HistoryMedical/Otbtngqd21/16/19 12:00 AM [facility] Patient is currently | | established with [facility]. If patient is seen in the ED during business hours. | | Please contact CHWs at [facility].Care Recommendation:This patient has had 5 or | [...] AM [facility] | | Hospital PATIENT HAS A PCP [...] Visits [facility] | | Health 1 [facility] 1 [facility] 2 Total 4 Note: | | Visits indicate total known visits. Recent Emergency Department Visit SummaryDate | | Facility City State Type Diagnoses or Chief Complaint May 13, 2019 [facility] and | | [facility] [place] Emergency 10,800. A303 May 10, 2019 [facility] | | 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 Emergency RIGHT LEG PAIN DUE TO FALL Strain of | | unsp musc/tend at lower leg level, right leg, init Aug 22, 2018 [facility]. | | [place] Emergency Other retirement (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 Upper abdominal pain, | | unspecified Bariatric surgery status Allergy status to oth drug/meds/biol subst | | status Noninfective gastroenteritis and colitis, unspecified Obesity, unspecified | | Anxiety disorder, unspecified long-term (current) use of aspirin Allergy status | | to penicillin Personal history of pulmonary embolism Recent Inpatient Visit | | SummaryNo recorded inpatient visits. Care TeamProvider Specialty Phone Fax Service Dates | | Rob Tilley Radio Interference Supervisor/Rn Support Services Mar 27, 2018 - Current | | Bernard Hylton MD Internal Medicine: Pulmonary Disease Aug 23, 2018 - Current | | Ayalogic Eddi patient has registered at the [facility] | | Emergency Department For more information visit: | | [email or web address] PLEASE | | NOTE: 1. Any care [...] completeness of information | | provided.? 2019 [employer]. - [email or web address] | |[facility] Pharm[facility] 3 | |Benzos 4 | |Opioids 7 | |Long Acting Opioids 0 | | | | | | | |E.D. Visit Count (12 mo.) | |Facility Visits | |[facility] 1 | |[facility] 1 | |[facility] 2 | |Total 4 | |Note: Visits indicate total known visits. | | | |Recent Emergency Department Visit Summary | |Date Facility City State Type Diagnoses or Chief Complaint | |May 13, 2019 [facility] [place] Emergency | | 10,800. A303 | | | |May 10, [address] [facility] 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 [place] Emergency | | RIGHT LEG PAIN DUE TO FALL | | Strain of unsp musc/tend at lower leg level, right leg, init | | | |Aug 22, 2018 [facility] [place] Emergency | | Other retirement (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 | | Upper abdominal [...] Phone Fax Service Dates | |Rob Tilley Radio Interference Supervisor/Rn Support Services Mar 27, 2018 - Current | |Bernard Hylton MD Internal Medicine: Pulmonary Disease Aug 23, 2018 - Current | | | |Ayalogic Portal | |This patient has registered at the [facility] and [facility] [place] [facility]art[facility] t | |For more information visit: [email or web address] | |PLEASE NOTE: | | 1. Any [...] information provided. | | | |? 2019 [employer]. - [email or web address] | + + + + + + + | Performing | Address | City/State/Zipcode | Phone Number | | Organization | | | | + + + + + | [facility] | [address], | [place], [place] | [phone] | | TECHNOLOGIES | [address] | [address] | | + + + + + EGD (04/07/2019 10:53 AM PDT) + + | Specimen | + + | | + + + + + | Narrative | Performed At | + + + | MRN: | [facility] | | [id number] Date: 04/07/2019Patient Name: Dylan Curtis #: | ENDOSCOPY | | [id number] of : 1975CSN: [id number] Type: | | | AmbulatoryRoom: Endo 5Procedure: Upper GI | | | endoscopyIndications: Generalized abdominal pain, Nausea | | | with vomitingProviders: TAL MCNEIL MD | | | (Doctor), BERNARDO BRENARD RN (Nurse), | | | GENECRE BASSULEMAN (Sluice Tender)Referring MD: KEREN Kilpatrick | | | RASTA [...] | | | The Olymp[employer] [id number] Endoscope #[id number] | | | was introduced through the [...] + + | Performing | Address | City/State/[facility]alscode | Phone Number | | Organization | [...] Note | + + | Service Account, Yo In Interface - 03/08/2019 3:33 PM PDT [...] INTERPRETIVE | 70 - 180 nmol/L | [facility] | | | WHOLE | INFORMATION: Vitamin [...] B: | | | | | | AB Group/CSPerformed | | | | | | by cac[employer],500 | | | | | | [facility] | | | | | | [address] | | | | | | [phone].[employer]. | | | | | | comIsmael [...] [facility] | [address] | [place], [place] | | | UNIV PTH - INTFC | | [address] | | + + + + + [...] [facility] | [address] | [place] [address] | | | SERVICES, CORE | CLARENCE [...] [facility] | [address] | [place] [address] | | | SERVICES, CORE | PARK [...] B: | | | | | | [employer]ompton[employer].com/CSPerformed | | | | | | by [employer]acaoTV,[address] | | | | | | [address], [place] | | | | | | [address] | | | | | | [phone].aruplab. | | | | | | Ismael [...] [facility] | [address] | [place], [place] | | | UNIV PTH - INTFC | | [address] | | + + + + + [...] [facility] | | | (YEN NOAH) | [employer],500 | | REG UNIV | | | SERUM | [place]ia [place], [facility],[place] | | PTH - INTFC | | | | [address] | | | | | | [phone].[employer]. | | | | | | Ismael [...] B: | | | | | | [employer]/ | | | | + + + + + + + + | Specimen | + + | Blood - Blood | | (substance) | + + + + + + + | Performing | Address | City/State/Zipcode | Phone Number | | Organization | | | | + + + + + | [facility] | [address] | [place], [place] | | | UNIV PTH - INTFC | | [address] | | + + + + + [...] INTFC | | | | determined by [employer] | | | | | | [employer]. See | | | | | | Compliance Statement B: | | | | | | AB Group/CSPerformed | | | | | | by [employer]ac[employer]TV,[address] | | | | | | [facility] | | | | | | [address] | | | | | | [phone].[employer]. | | | | | | The LaCrosse GroupIsmael MD, | | | | | | [...] [facility] | [address] | [place], [place] | | | UNIV PTH - INTFC | | [address] | | + + + + + [...] [facility] | [address] | [place] [address] | | | SERVICES, SPECIAL | CLARENCE [...] [facility] | | | | | | [employer]. See | | | | | | Compliance Statement B: | | | | | | [employer]/CSPerformed | | | | | | by [employer],500 | | | | | | Natalia Parson, [facility] | | | | | | [address] | | | | | | [phone].[employer]. | | | | | | [facility], Ismael Willis MD, | | [...] [facility] | [address] | [place], [place] | | | UNIV PTH - INTFC | | [address] | | + + + + + [...] [facility] | [address] | [place] [address] | | | SERVICES, CORE | CLARENCE [...] [facility] | [address] | [place] [address] | | | SERVICES, CORE | PARK [...] [facility] | [address] | [place] [address] | | | SERVICES, CORE | PARK [...] [facility] | [address] | [place] [address] | | | LYDIA RNAGEL | [address] | | | + [...] | | | | | determined by [employer] | | | | | | Laboratories. See | | | | | | Compliance Statement B: | | | | | | [employer]/CSPerformed | | | | | | by [employer],500 | | | | | | [facility] | | | | | | [address] | | | | | | [phone].[employer]. | | | | | | com, [...] [facility] | [address] | [place], [place] | | | UNIV PTH - INTFC | | [address] | | + + + + + [...] | | | + +--------+ +--------+-------+---------+--------+ | EXCAVATION LABORER MEDICAID | EXCAVATION LABORER | [id number] | | | | Medica [...] mireya | | | 3 (Home) | [address] | + +--------+ +--------+ + + Advance [...]
--- OUTSIDE RECORDS SUMMARY | ~2019-06-01 | XMS | Encounter Summary ---
Demographics + + + | Address | [address] | | | [place] [address] | + + + | Home Phone [...] [place], [place] | | | | | [address] | | + + + + + | Ellie Vang | ECON | Unknown | | + + + + + Care Team Providers + +------+ + | Care Dinkey Brakeman Name | Role | Phone | [...] 2019 | | Preventive at [facility] | [address] | | | | | [address] | [place], [place] | | | | | Mailcode: CH9A | [address] | | | | | [facility] | [phone] | | | | | and Healing, | | | | | | [address] | | | | | | [place], [place] | | | | | | [address] | | | | | | [phone] | | | +--------+ + + + [...] Rd | | | | | | [facility] [place] | | | | | | [address] | | | | | | [phone] | | | | | | | | +--------+ + + + + | 06/24/ | Surgery | Surgery | Chilo | OPEN VENTRAL HERNIA | | 2018 | | | MD [address] | REPAIR WITH | | | | | [address] | BIOLOGICAL MESH | | | | | [place], [place] | | | | | | [address] | | | | | | [phone] | | | | | | | | +--------+ + + + + | 06/30/ | Office | Cardiology | Randell Franks, | | | 2019 | Visit | | [address] | | | | | | [place], [place] | | | | | | [address] | | | | | | [phone] | | | | | | | | +--------+ + + + + documented as of this encounter Visit Diagnoses Not on filedocumented in this encounter"
--- OUTSIDE RECORDS SUMMARY | ~2019-06-01 | XMS | Encounter Summary ---
Demographics + + + | Address | [address] | | | [place] [address] | + + + | Home Phone [...] [place], [place] | | | | | [address] | | + + + + + | Ellie Vang | ECON | Unknown | | + + + + + Care Team Providers + +------+ + | Care Ehs Engineer Name | Role | Phone | [...] Center at [facility] [address] | | Review | | | | [address] | | | | | | Mailcode: [place] | | | | | | [facility] and | | | | | | [facility], [facility] 2 | | | | | | [place], [place] | | | | | | [address] | | | | | | [phone] | | | +--------+ + + + [...] [place] | | | | | | [address] | | | | | | [phone] | | | | | | | | +--------+ + + + + | 06/24/ | Surgery | Surgery | [place], | OPEN VENTRAL HERNIA | | 2019 | | | MD Jorje [address] | REPAIR WITH | | | | | [address] | BIOLOGICAL MESH | | | | | [place], [place] | | | | | | [address] | | | | | | [phone] | | | | | | | | +--------+ + + + + | 06/30/ | Office | Cardiology | Randell Franks, | | | 2019 | Visit | | [address] | | | | | | [place], [place] | | | | | | [address] | | | | | | [phone] | | | | | | | | +--------+ + + + + documented as of this encounter Visit Diagnoses Not on filedocumented in this encounter"
--- OUTSIDE RECORDS SUMMARY | ~2019-06-01 | XMS | Encounter Summary ---
Demographics + + + | Address | [address] | | | [place] [address] | + + + | Home Phone [...] Team Providers + +------+ + | Care Destination Sign Repairer Name | Role | Phone | [...] | | | | | | | [place] for | | | | | | | Health and | | | | | | | Healing, | | | | | | | Building [address] | | | | | | | [place], [place] | | | | | | | [address] | | | | | | | Phone: | | | | | | | [phone] | | | | | | | Fax: | | | | | | | [phone] | +--------+--------+ + + + + Encounter [...] | [address] | [place] Gutiérrez [place], | 2 diabetes mellitus | | | | Mailcode: Center | [place] [address] | (HCC) | | | | for Health and | | | | | | [facility], [facility] 2 | | | | | | [place], [place] | | | | | | [address] | | | | | | [phone] | | | +--------+---------+ + + + [...] of Visit: 12:29 to 12:57 (28 minutes bcjq-[id number] with patient) SUBJECTIVE: Trying to follow a [...] post-surgery diet progression. 4. Call or send ND Acquisitionshart message to dietitian with any questions. Contact information was provided. Follow up with dietitian prior to surgery to review post-surgical recommendations. Yuli Childs RD, CNSC, LD Pager# [phone] documented in this enco unter Plan of [...] Rd | | | | | | [place], [place] | | | | | | [address] | | | | | | [phone] | | | | | | | | +--------+ + + + + | 06/24/ | Surgery | Surgery | Chilo, | OPEN VENTRAL HERNIA | | 2018 | | | MD Jorje [address] | REPAIR WITH | | | | | [address] | BIOLOGICAL MESH | | | | | [facility] [place] | | | | | | [address] | | | | | | [phone] | | | | | | | | +--------+ + + + + | 06/30/ | Office | Cardiology | Randell Franks, | | | 2018 | Visit | | [address] | | | | | | [place], [place] | | | | | | [address] | | | | | | [phone] | | | | | | | | +--------+ + + + + documented as of this encounter Procedures + +--------+ + + + | Procedure Name | Priori | Date/Time | Associated Diagnosis | Comments | | | ty | | | | + +--------+ + + + | [facility] | Routin | 08/28/2014 | [...]
--- OUTSIDE RECORDS SUMMARY | ~2019-06-01 | XMS | Encounter Summary ---
Demographics + + + | Address | [address] | | | [place] [address] | + + + | Home Phone [...] + +------+ + | Care Health Care Legal Assistant Name | Role | Phone | [...] Rd | | | | | | [place], [place] | | | | | | [address] | | | | | | [phone] | | | | | | | | +--------+ + + + + | 06/24/ | Surgery | Surgery | Chilo, | OPEN VENTRAL HERNIA | | 2018 | | | MD Jorje [address] | REPAIR WITH | | | | | [address] | BIOLOGICAL MESH | | | | | [place], [place] | | | | | | [address] | | | | | | [phone] | | | | | | | | +--------+ + + + + | 06/30/ | Office | Cardiology | Randell Franks, | | | 2018 | Visit | | [address] | | | | | | [place], [place] | | | | | | [address] | | | | | | [phone] | | | | | | | | +--------+ + + + + documented as of this encounter Visit Diagnoses Not on filedocumented in this encounter"
--- OUTSIDE RECORDS SUMMARY | ~2019-06-01 | XMS | Encounter Summary ---
Demographics + + + | Address | [address] | | | [place] [address] | + + + | Home Phone [...] [place], [place] | | | | | [address] | | + + + + + | Ellie Vang | ECON | Unknown | | + + + + + Care Team Providers + +------+ + | Care Control System Manager Name | Role | Phone | [...] | 2016 | on | Center at [place] [address] | | | | | | [address] | | | | | | Mailcode: [place] | | | | | | for Health and | | | | | | [facility], [facility] 2 | | | | | | [place], [place] | | | | | | [address] | | | | | | [phone] | | | +--------+ + + + [...] Rd | | | | | | [place], [place] | | | | | | [address] | | | | | | [phone] | | | | | | | | +--------+ + + + + | 06/24/ | Surgery | Surgery | Chilo, | OPEN VENTRAL HERNIA | | 2018 | | | MD [address] | REPAIR WITH | | | | | [address] | BIOLOGICAL MESH | | | | | [place], [place] | | | | | | [address] | | | | | | [phone] | | | | | | | | +--------+ + + + + | 06/30/ | Office | Cardiology | Randell Franks, | | | 2018 | Visit | | MD [address] | | | | | | [address] [place], [place] | | | | | | [address] | | | | | | [phone] | | | | | | | | +--------+ + + + + documented as of this encounter Visit Diagnoses Not on filedocumented in this encounter"
--- OUTSIDE RECORDS SUMMARY | ~2019-06-01 | XMS | Encounter Summary ---
Demographics + + + | Address | [address] | | | [place] [address] | + + + | Home Phone [...] [place], [place] | | | | | [address] | | + + + + + | Ellie Vang | ECON | Unknown | | + + + + + Care Team Providers + +------+ + | Care Appeals Analyst Name | Role | Phone | [...] | | | | | | [place] [address] | | | +--------+ + + + [...] Rd | | | | | | [place], [place] | | | | | | [address] | | | | | | [phone] | | | | | | | | +--------+ + + + + | 06/24/ | Surgery | Surgery | Chilo, | OPEN VENTRAL HERNIA | | 2019 | | | MD Jorje [address] | REPAIR WITH | | | | | [address] | BIOLOGICAL MESH | | | | | [place] | | | | | | [address] | | | | | | [phone] | | | | | | | | +--------+ + + + + | 06/30/ | Office | Cardiology | Randell Franks, | | | 2018 | Visit | | [address] | | | | | | [place] | | | | | | [address] | | | | | | [phone] | | | | | | | | +--------+ + + + + documented as of this encounter Visit Diagnoses Not on filedocumented in this encounter"
--- OUTSIDE RECORDS SUMMARY | ~2019-06-01 | XMS | Encounter Summary ---
Demographics + + + | Address | [address] | | | [place] [address] | + + + | Home Phone [...] + | Katalina Padilla | ECON | [address] | | | | | [place], [place] | | | | | [address] | | + + + + + | Elile Vang | ECON | Unknown | | + + + + + Care Team Providers + +------+ + | Care Business Banking Relationship Manager Name | Role | Phone [...] [facility] | [address] | (PHENTERMINE 37.5 mg | | | | [address] | [place], [place] | ) | | | | Mailcode: [place]LL | [address] | | | | | [facility] | [phone] | | | | | and [address], | | | | | | [address] | | | | | | [place], [place] | | | | | | [address] | | | | | | [phone] | | | +--------+--------+ + + + [...] | | | | | | [place], [place] | | | | | | [address] | | | | | | [phone] | | | | | | | | +--------+ + + + + | 06/24/ | Surgery | Surgery | Chilo, | OPEN VENTRAL HERNIA | | 2018 | | | MD Jorje [address] | REPAIR WITH | | | | | [address] | BIOLOGICAL MESH | | | | | [place], [place] | | | | | | [address] | | | | | | [phone] | | | | | | | | +--------+ + + + + | 06/30/ | Office | Cardiology | Randell Franks, | | | 2018 | Visit | | [address] | | | | | | [place], [place] | | | | | | [address] | | | | | | [phone] | | | | | | | | +--------+ + + + + documented as of this encounter Visit Diagnoses Not on filedocumented in this encounter"
--- OUTSIDE RECORDS SUMMARY | ~2019-06-01 | XMS | Encounter Summary ---
Demographics + + + | Address | [address] | | | [place] [address] | + + + | Home Phone [...] [place], [place] | | | | | [address] | | + + + + + | Ellie Vang | ECON | Unknown | | + + + + + Care Team Providers + +------+ + | Care Customer Experience Manager Name | Role | Phone | + +------+ + | Kenyatta Cardenas MD | PCP | | + +------+ + Encounter Details +--------+ + + + + | Date | Type | Department | Care Team | Description | +--------+ + + + + | 05/28/ | Phillip | NKECHI DUMAS at [facility] | Lab, Gi Procedure | | | 2018 | on | [address] | | | | | | Brenton Flannery Mailcode: | | | | | | [facility] | | | | | | Health and Healing, | | | | | | [facility] 2 | | | | | | [place], [place] | | | | | | [address] | | | | | | [phone] | | | +--------+ + + + [...] | | | | | | [place], [place] | | | | | | [address] | | | | | | [phone] | | | | | | | | +--------+ + + + + | 06/24/ | Surgery | Surgery | Chilo, | OPEN VENTRAL HERNIA | | 2019 | | | MD [address] | REPAIR WITH | | | | | [address] | BIOLOGICAL MESH | | | | | [place], [place] | | | | | | [address] | | | | | | [phone] | | | | | | | | +--------+ + + + + | 06/30/ | Office | Cardiology | Randell Franks, | | | 2019 | Visit | | [address] | | | | | | [place], [place] | | | | | | [address] | | | | | | [phone] | | | | | | | | +--------+ + + + + documented as of this encounter Visit Diagnoses Not on filedocumented in this encounter"
--- OUTSIDE RECORDS SUMMARY | ~2019-06-01 | XMS | Encounter Summary ---
Demographics + + + | Address | [address] | | | [place] [address] | + + + | Home Phone [...] [place], [place] | | | | | [address] | | + + + + + | Ellie Vang | ECON | Unknown | | + + + + + Care Team Providers + +------+ + | Care Landcare Facilitator Name | Role | Phone | [...] | | | | | | [facility] [address] [facility] | | | | | | [facility] | | | | | | [place], [place] | | | | | | [address] | | | +--------+ + + + [...] Rd | | | | | | [place], [place] | | | | | | [address] | | | | | | [phone] | | | | | | | [...] [place] | | | | | | [address] | | | | | | [phone] | | | | | | | | +--------+ + + + + | 06/30/ | Office | Cardiology | Randell Franks, | | | 2018 | Visit | Analisa CARVAJAL [address] | | | | | | Ave [place], [place] | | | | | | [address] | | | | | | [phone] | | | | | | | | +--------+ + + + + documented as of this encounter Visit Diagnoses Not on filedocumented in this encounter"
--- OUTSIDE RECORDS SUMMARY | ~2019-06-01 | XMS | Encounter Summary ---
Demographics + + + | Address | [address] | | | [place] [address] | + + + | Home Phone [...] [place], [place] | | | | | [address] | | + + + + + | Ellie Vang | ECON | Unknown | | + + + + + Care Team Providers + +------+ + | Care Ship Pilot Dispatcher Name | Role | Phone | [...] | 2015 | | Center at [facility] [address] | ACNP [address] | | | | | [address] | Ave [place], [place] | | | | | Mailcode: [place] | [address] | | | | | for Health and | | | | | | [facility] 2 | | | | | | [facility] [place] | | | | | | [address] | | | | | | | [...] Rd | | | | | | [place], [place] | | | | | | [address] | | | | | | [phone] | | | | | | | | +--------+ + + + + | 06/24/ | Surgery | Surgery | Chilo, | OPEN VENTRAL HERNIA | | 2018 | | | MD Jorje [address] | REPAIR WITH | | | | | [address] | BIOLOGICAL MESH | | | | | [place], [place] | | | | | | [address] | | | | | | [phone] | | | | | | | | +--------+ + + + + | 06/30/ | Office | Cardiology | Randell Franks, | | | 2018 | Visit | | MD [address] | | | | | | Ave [place], [place] | | | | | | [address] | | | | | | [phone] | | | | | | | | +--------+ + + + + documented as of this encounter Visit Diagnoses Not on filedocumented in this encounter"
--- OUTSIDE RECORDS SUMMARY | ~2019-06-01 | XMS | Encounter Summary ---
Demographics + + + | Address | [address] | | | [place] [address] | + + + | Home Phone [...] [place], [place] | | | | | [address] | | + + + + + | Ellei Vang | ECON | Unknown | | + + + + + Care Team Providers + +------+ + | Care Dip Dyer Name | Role | Phone | [...] | | | [address] | [place], [place] | | | | | [address] [facility] | [address] | | | | | Rd Mailcode: UHN83 | [phone] | | | | | Francesco Peres | | | | | | [address] [place], [place] | | | | | | [address] | | | | | | [phone] | | | +--------+ + + + [...] Rd | | | | | | [place], [place] | | | | | | [address] | | | | | | [phone] | | | | | | | | +--------+ + + + + | 06/24/ | Surgery | Surgery | Chilo, | OPEN VENTRAL HERNIA | | 2018 | | | MD Jorje [address] | REPAIR WITH | | | | | [address] | BIOLOGICAL MESH | | | | | [place], [place] | | | | | | [address] | | | | | | [phone] | | | | | | | | +--------+ + + + + | 06/30/ | Office | Cardiology | Randell Franks, | | | 2018 | Visit | | [address] | | | | | | [place], [place] | | | | | | [address] | | | | | | [phone] | | | | | | | | +--------+ + + + + documented as of this encounter Visit Diagnoses Not on filedocumented in this encounter"
--- OUTSIDE RECORDS SUMMARY | ~2019-06-01 | XMS | Encounter Summary ---
Demographics + + + | Address | [address] | | | [place] [address] | + + + | Home Phone [...] [place], [place] | | | | | [address] | | + + + + + | Ellie Vang | ECON | Unknown | | + + + + + Care Team Providers + +------+ + | Care Mold Maker Helper Name | Role | Phone [...] | | | | | | [place] [address] | | | +--------+ + + + [...] Rd | | | | | | [place], [place] | | | | | | [address] | | | | | | [phone] | | | | | | | | +--------+ + + + + | 06/24/ | Surgery | Surgery | Chilo, | OPEN VENTRAL HERNIA | | 2019 | | | MD Jorje [address] | REPAIR WITH | | | | | [address] | BIOLOGICAL MESH | | | | | [place] | | | | | | [address] | | | | | | [phone] | | | | | | | | +--------+ + + + + | 06/30/ | Office | Cardiology | Randell Franks, | | | 2018 | Visit | | [address] | | | | | | [place] | | | | | | [address] | | | | | | [phone] | | | | | | | | +--------+ + + + + documented as of this encounter Visit Diagnoses Not on filedocumented in this encounter"
--- OUTSIDE RECORDS SUMMARY | ~2019-06-01 | XMS | Encounter Summary ---
Demographics + + + | Address | [address] | | | [place] [address] | + + + | Home Phone [...] [place], [place] | | | | | [address] | | + + + + + | Ellie Vang | ECON | Unknown | | + + + + + Care Team Providers + +------+ + | Care Regulatory Affairs Director Name | Role | Phone | [...] | | | | | | [place] [address] | | | +--------+ + + + [...] Rd | | | | | | [place], [place] | | | | | | [address] | | | | | | [phone] | | | | | | | | +--------+ + + + + | 06/24/ | Surgery | Surgery | Chilo, | OPEN VENTRAL HERNIA | | 2019 | | | MD Jorje [address] | REPAIR WITH | | | | | [address] | BIOLOGICAL MESH | | | | | [place] | | | | | | [address] | | | | | | [phone] | | | | | | | | +--------+ + + + + | 06/30/ | Office | Cardiology | Randell Franks, | | | 2018 | Visit | | [address] | | | | | | [place] | | | | | | [address] | | | | | | [phone] | | | | | | | | +--------+ + + + + documented as of this encounter Visit Diagnoses Not on filedocumented in this encounter"
--- OUTSIDE RECORDS SUMMARY | ~2019-06-01 | XMS | Encounter Summary ---
Demographics + + + | Address | [address] | | | [place] [address] | + + + | Home Phone [...] [place], [place] | | | | | [address] | | + + + + + | Ellie Vang | ECON | Unknown | | + + + + + Care Team Providers + +------+ + | Care Executive Manager Name | Role | Phone | [...] | 2015 | | Preventive at [facility] | MD [address] | | | | | [address] | [place], [place] | | | | | Mailcode: [facility] | [address] | | | | | [facility] | [phone] | | | | | and [address], | | | | | | [address] | | | | | | [place], [place] | | | | | | [address] | | | | | | [phone] | | | +--------+ + + + [...] [place] | | | | | | [address] | | | | | | [phone] | | | | | | | | +--------+ + + + + | 06/24/ | Surgery | Surgery | Chilo | OPEN VENTRAL HERNIA | | 2018 | | | MD [address] | REPAIR WITH | | | | | [address] | BIOLOGICAL MESH | | | | | [place] | | | | | | [address] | | | | | | [phone] | | | | | | | | +--------+ + + + + | 06/30/ | Office | Cardiology | Randell Franks, | | | 2019 | Visit | | [address] | | | | | | [place], [place] | | | | | | [address] | | | | | | [phone] | | | | | | | | +--------+ + + + + documented as of this encounter Visit Diagnoses Not on filedocumented in this encounter"
--- OUTSIDE RECORDS SUMMARY | ~2019-06-01 | XMS | Encounter Summary ---
Demographics + + + | Address | [address] | | | [place] [address] | + + + | Home Phone [...] [place], [place] | | | | | [address] | | + + + + + | Ellie Vang | ECON | Unknown | | + + + + + Care Team Providers + +------+ + | Care Healthcare Architect Name | Role | Phone | + +------+ + | Fadi Goodrich DO | PCP | | + +------+ + Encounter Details +--------+ + + + + | Date | Type | Department | Care Team | Description | +--------+ + + + + | 02/24/ | Abstract | Cardiology | Randell Franks, | | | 2015 | | Preventive at [facility] | MD [address] | | | | | [address] | Ave [place], [place] | | | | | Mailcode: CH9A | [address] | | | | | [facility] | [phone] | | | | | and Healing, | | | | | | [address] | | | | | | [place], [place] | | | | | | [address] | | | | | | [phone] | | | +--------+ + + + [...] Rd | | | | | | [place], [place] | | | | | | [address] | | | | | | [phone] | | | | | | | | +--------+ + + + + | 06/24/ | Surgery | Surgery | Chilo, | OPEN VENTRAL HERNIA | | 2018 | | | MD Jorje [address] | REPAIR WITH | | | | | [address] | BIOLOGICAL MESH | | | | | [place], [place] | | | | | | [address] | | | | | | [phone] | | | | | | | | +--------+ + + + + | 06/30/ | Office | Cardiology | Randell Franks, | | | 2019 | Visit | | MD [address] | | | | | | Ave [place], [place] | | | | | | [address] | | | | | | [phone] | | | | | | | | +--------+ + + + + documented as of this encounter Visit Diagnoses Not on filedocumented in this encounter"
--- OUTSIDE RECORDS SUMMARY | ~2019-06-01 | XMS | Encounter Summary ---
Demographics + + + | Address | [address] | | | [place] [address] | + + + | Home Phone [...] [place], [place] | | | | | [address] | | + + + + + | Ellie Vang | ECON | Unknown | | + + + + + Care Team Providers + +------+ + | Care Spiritual Advisor Name | Role | Phone | [...] | 2019 | Visit | Preventive at [facility] | MD [address] | mellitus without | | | | [address] | Ave [place], [place] | complication, with | | | | Mailcode: CH9A | [address] | long-term current | | | | [facility] | [phone] | use of insulin ([facility]) | | | | and Healing, | | (Primary Dx); | | | | [address] | | Morbid obesity with | | | | [place], [place] | | BMI of 70 and over, | | | | [address] | | adult (HCC) | | | | [phone] | | | +--------+---------+ + + + [...] started Type 2 diabetes mellitus ([facility]) 04/14/2013 Priority: 5 Iron deficiency anemia due to chronic blood loss 11/11/2015 Priority: 6 Overview Note: Ferritin 18 on 10/2015 Hypoalbuminemia (no proteinuria, need to rule out synthetic, nutrition, loss) 6 Priority: 6 Hypothyroidism 08/28/2014 Priority: 8 Morbid obesity with BMI of 70 and over, adult ([facility]) 02/02/2017 Chronic diastolic heart failure (HCC) 02/02/2017 [...] daily. BELBUCA 300 mcg buccal film CALCIUM CRB&TLE-X4-PUL57-GENIS ORAL Take 2 tablets by mouth two [...] of metformin, and she reports her last qhnwm-dj-vspl A1 c was 5.5% on this dose. [...] CREATININE PLASMA (LAB) 0.85 0.70 EGFR - GHANAIAN >60 >60 EGFR NON -GHANAIAN >60 >60 GLUCOSE, PLASMA (LAB) 123 (H) [...] is currently being managed well by her Dynamometer Mechanic with diuretics and main tenance of [...] management of her heart failure by her Dynamometer Mechanic 3) discontinue metformin 4) check 24 [address] Rd | | | | | | [place], [place] | | | | | | [address] | | | | | | [phone] | | | | | | | | +--------+ + + + + | 06/24/ | Surgery | Surgery | Chilo, | OPEN VENTRAL HERNIA | | 2018 | | | MD Jorje [address] | REPAIR WITH | | | | | [address] | BIOLOGICAL MESH | | | | | [place], [place] | | | | | | [address] | | | | | | [phone] | | | | | | | | +--------+ + + + + | 06/30/ | Office | Cardiology | Randell Franks, | | | 2019 | Visit | | MD [address] | | | | | | [place], [place] | | | | | | [address] | | | | | | [phone] | | | | | | | [...] + + | [facility] - | [address] | [place] | [phone] | | [place] | | | | [...]
--- OUTSIDE RECORDS SUMMARY | ~2019-06-01 | XMS | Encounter Summary ---
Demographics + + + | Address | [address] | | | [place] [address] | + + + | Home Phone [...] [place], [place] | | | | | [address] | | + + + + + | Ellie Vang | ECON | Unknown | | + + + + + Care Team Providers + +------+ + | Care Animal Rehabilitator Name | Role | Phone | + [...] | | | | | essential | [address] | [address] | | | | | hypertension | [address] | Ave | | | | | Type II or | [address] | [place], [place] | | | | | unspecified | [place] | [address] | | | | | type | [address] | Phone: | | | | | diabetes | Phone: | [phone] | | | | | mellitus | [phone] | Fax: | | | | | without | Fax: | [phone] | | | | | mention of | [phone] | | | | | | complication [...] | 2013 | Visit | Preventive at [facility] | [address] | mellitus (HCC) | | | | [address] | Ave [place], [place] | (Primary Dx); | | | | Mailcode: 9A | [address] | Migraine headache | | | | [facility] | [phone] | | | | | and [address], | | | | | | [address] | | | | | | [place], [place] | | | | | | [address] | | | | | | [phone] | | | +--------+---------+ + + + [...] she is hypothyroid and put her on [place] Thyroid hormone replacement therapy. Her heart rate [...] Rd | | | | | | [place], [place] | | | | | | [address] | | | | | | [phone] | | | | | | | [...] [place] | | | | | | [address] | | | | | | [phone] | | | | | | | | +--------+ + + + + | 06/30/ | Office | Cardiology | aRndell Franks, | | | 2019 | Visit | | [address] | | | | | | [place], [place] | | | | | | [address] | | | | | | [phone] | | | | | | | [...] [facility] | [address] | [place] [address] | | | SERVICES, SPECIAL | PARK [...]
--- OUTSIDE RECORDS SUMMARY | ~2019-06-01 | XMS | Encounter Summary ---
Demographics + + + | Address | [address] | | | [place] [address] | + + + | Home Phone [...] [place], [place] | | | | | [address] | | + + + + + | Ellie Vang | ECON | Unknown | | + + + + + Care Team Providers + +------+ + | Care Industrial Refrigeration Mechanic Name | Role | Phone | [...] | | | | | Procedures | [place], [place] | [place], [place] | | | | | [place] TO | [address] | [address] | | | | | CAR | Phone: | Phone: | | | | | PREVENTATIVE | [phone] | [phone] | | | | | [facility] - | Fax: | Fax: | | | | | LIPIDS | [phone] | [phone] | +--------+--------+ + + + + Encounter Details +--------+---------+ + + + | Date | Type | Department | Care Team | Description | +--------+---------+ + + + | 09/11/ | Office | Cardiology | Olga Lidia Montanez, | 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 | Visit | Preventive at [facility] | [address] | BMI of 70 and over, | | | | [address] | [address] | adult (HCC) (Primary | | | | Mailcode: CH9A | [place], [place] | Dx) | | | | [facility] | [address] | | | | | and Healing, | | | | | | [address] | | | | | | [place], [place] | | | | | | [address] | | | | | | [phone] | | | +--------+---------+ + + + [...] appointment, Dietitian: Olga Lidia Montanez RD, LD [facility] Bariatric department (to reschedule classes): [phone] Goals: 1. Try to stop buying Pop-Tarts 2. Replace afternoon snack (think of this as lunch) with vegetables or fruit -cucumbers, carrots, broccoli, cauliflower, etc. -try making ranch dip w/ nonfat plain yogurt (regular or Cymraes) (or mix yogurt w/ salsa; o r chipotle hot sauce & chinik juice) 3. Snack ideas: -fruit -vegetables (with hummus or yogurt dip) -Cymraes yogurt - light (have w/ fruit if you're still hungry) -applesauce - unsweetened, w/ lowfat string cheese -1/4 cup nuts -lowfat string cheese -low-fat or non-fat cottage cheese w/ tomatoes 4. Aim for 60-80 grams of protein a day (see list) 5. Add Cymraes yogurt to breakfast Heart Protection Kitchen from [facility] Healthy eating made simple. What: FREE heart-healthy cooking demonstrations led by guest finisher brush and nutrition experts. Samples are provided! Where: [facility] ([facility]), September, 2nd floor teaching kitchen When: All classes from 11:00am-12:00pm ? October 12 (led by Dr. Paulino Carreno MD) Please contact Keerthi Boyer at [phone] or email at [email or web address] for information on upcoming classes and to register. Space is limited - reserve your seat today! Want more info on what to eat? Watch the [employer] video, "Healthy Eating 101," at [email or web address]/[email or web address] documented in this encounter Progress Notes Olga Lidia Montanez RD - 09/11/2017 2:30 PM PSTFormatting of this note might be different fro m the original. [facility], Nutrition Consultation Referring provider: Dr. Randell Franks MD Referring diagnosis: obesity, HF, DM2 Visit type: Initial; ebih-tx-ciiz visit with patient Questions/Information desired today: Hoping [...] Still has bariatric notebooks at home. Per [employer] message from Dr. Pandey 09/10/17: "Just [...] & 1% milk; occ w/ applesauce or Cymraes yogurt No L S (3pm): pop-tart or [...] it's too expensive. Occ fruit bowls from [facility]. Vegetables: every day w/ dinner [...] in PT 2x/week for bariatric program (in [place]) UBW: 385-391 lbs Max weight: 529 lbs Weight history: lost from 495 lbs to 383 lbs in 4568-8238 on Atkins diet ANTHROPOMETRICS: Height: Ht Readings [...] weight loss; anticipate excellent compliance in the [facility] surgery program. Currently eating energy-dense/nurient-poor [...] of protein a day - add light Cymraes yogurt to breakfast; include lean protein with PM snack/lunch 3. D/c carbonated beverages (e.g., diet soda); replace with water, Crystal Light, diet deca f tea, or other calorie-free still beverage Contact information was provided; call or send [employer] message to dietitian with any questi ons. [...] Rd | | | | | | [place], [place] | | | | | | [address] | | | | | | [phone] | | | | | | | | +--------+ + + + + | 06/24/ | Surgery | Surgery | Chilo, | OPEN VENTRAL HERNIA | | 2019 | | | MD [address] | REPAIR WITH | | | | | [address] | BIOLOGICAL MESH | | | | | [facility] [place] | | | | | | [address] | | | | | | [phone] | | | | | | | | +--------+ + + + + | 06/30/ | Office | Cardiology | Randell Franks, | | | 2019 | Visit | | [address] | | | | | | [place], [place] | | | | | | [address] | | | | | | [phone] | | | | | | | | +--------+ + + + + documented as of this encounter Visit Diagnoses + + | Diagnosis | + + | Morbid obesity with BMI of 70 and over, adult (HCC) - Primary | + + documented in this encounter
--- OUTSIDE RECORDS SUMMARY | ~2019-06-01 | XMS | Encounter Summary ---
Demographics + + + | Address | [address] | | | [place] [address] | + + + | Home Phone [...] [place], [place] | | | | | [address] | | + + + + + | Ellie Vang | ECON | Unknown | | + + + + + Care Team Providers + +------+ + | Care Soccer Coach Name | Role | Phone | [...] UPPER ENDOSCOPY | | 2018 | | [facility] | [address] | | | | | Admitting Desk | [place], [place] | | | | | Located on the | [address] | | | | | floor [address] [facility] | [phone] | | | | | [address] | | | | | | [place], [place] | | | | | | [address] | | | +--------+---------+ + + + [...] the endoscopy department toll free ext. [phone] or After business hours or on weekends and holiday Hospital Air Quality Chemist toll free [phone] ext. 1979or and have the GI doctor research instrumentation technician paged. The provider who performed your [...] | | 0 | | | | [id number]-[id number]-[id number]-GEN | mouth two times | | | [...] 2:35 PM PST PRE PROCEDURE NOTE: MR# [id number] Subjective: Elzbieta Cristina is a 43 y.o. [...] [address] | | | | | | [place], [place] | | | | | | [address] | | | | | | [phone] | | | | | | | | +--------+ + + + + | 06/24/ | Surgery | Surgery | Chilo, | OPEN VENTRAL HERNIA | | 2018 | | | MD [address] | REPAIR WITH | | | | | [address] | BIOLOGICAL MESH | | | | | [place], [place] | | | | | | [address] | | | | | | [phone] | | | | | | | | +--------+ + + + + | 06/30/ | Office | Cardiology | Randell Franks, | | | 2019 | Visit | | [address] | | | | | | [place], [place] | | | | | | [address] | | | | | | [phone] | | | | | | | [...] -----+ | MRN: | [facility] | | [id number] Date: 06/23/2018Patient Name: Elzbieta Curtis #: | MORGAN Y | | [id number] of : 1975CSN: [id number] Type: | | | AmbulatoryRoom: SORProcedure: Upper GI | | | endoscopyIndications: Nausea with vomiting, Status post | | | Uobj-wf-ORiogjzzct: KALEB WILCOX MD (Doctor), JOSE | | | NASIMA, Store Hand | | | (Store Hand)Referring MD: DANIELLE GARCÍAPRemateusz | | | [...] | | | The Olympus [id number]-[id number] Gastroscope #[id number] was | | | introduced through the [...] endoscope without resistance. The | | | udusa-hr-kzlbnsv limb was characterized by healthy appearing | [...] Initiated On: | | | 06/23/2018 3:58 [facility] Letter to: FADI GOODRICH, DO | [...] + + + | NKECHI AMES | [address] | [place], [place] | | | [facility] | [address] | [address] | | | TESTS | | | [...] intravenous, POSTPROCEDURE PRN, | | | Starting [facility] 06/23/18 at 1532, | | | Until [facility] 06/24/18 at 0027, | | | hypopnea | | + +---+ | | | + +---+ | ondansetron (ZOFRAN) injection | | | 4 mg 4 mg, intravenous, | | | POSTPROCEDURE PRN, 1 dose, | | | Starting [facility] 06/23/18 at 1532, | | | Until [facility] 06/24/18 at 0027, | | | [...]
--- OUTSIDE RECORDS SUMMARY | ~2019-06-01 | XMS | Encounter Summary ---
Demographics + + + | Address | [address] | | | [place] [address] | + + + | Home Phone [...] [place], [place] | | | | | [address] | | + + + + + | Ellie Vang | ECON | Unknown | | + + + + + Care Team Providers + +------+ + | Care Technical Support Assistant Name | Role | Phone [...] | [address] | Ave [place], [place] | | | | | Mailcode: [place] | [address] | | | | | for Health and | [phone] | | | | | [facility] [address] | | | | | | [facility] [place] | | | | | | [address] | | | | | | | [...] Rd | | | | | | [place], [place] | | | | | | [address] | | | | | | [phone] | | | | | | | | +--------+ + + + + | 06/24/ | Surgery | Surgery | Chilo, | OPEN VENTRAL HERNIA | | 2019 | | | MD Jorje [address] | REPAIR WITH | | | | | [address] | BIOLOGICAL MESH | | | | | [place], [place] | | | | | | [address] | | | | | | [phone] | | | | | | | | +--------+ + + + + | 06/30/ | Office | Cardiology | Randell Franks, | | | 2019 | Visit | | [address] | | | | | | [place], [place] | | | | | | [address] | | | | | | [phone] | | | | | | | | +--------+ + + + + documented as of this encounter Visit Diagnoses Not on filedocumented in this encounter"
--- OUTSIDE RECORDS SUMMARY | ~2019-06-01 | XMS | Encounter Summary ---
Demographics + + + | Address | [address] | | | [place] [address] | + + + | Home Phone [...] [place], [place] | | | | | [address] | | + + + + + | Ellie Vang | ECON | Unknown | | + + + + + Care Team Providers + +------+ + | Care Heel Sander Rubber Name | Role | Phone | + +------+ + | Fadi Goodrich DO | PCP | | + +------+ + Encounter Details +--------+------+ + + + | Date | Type | Department | Care Team | Description | +--------+------+ + + + | 12/05/ | Lab | Laboratory at [facility] | | Type 2 diabetes | | 2013 | | [address] | | mellitus (HCC) | | | | [place], [place] | | | | | | [address] | | | | | | [phone] | | | +--------+------+ + + + [...] Rd | | | | | | [place], [place] | | | | | | [address] | | | | | | [phone] | | | | | | | | +--------+ + + + + | 06/24/ | Surgery | Surgery | Chilo, | OPEN VENTRAL HERNIA | | 2018 | | | MD Jorje [address] | REPAIR WITH | | | | | [address] | BIOLOGICAL MESH | | | | | [place], [place] | | | | | | [address] | | | | | | [phone] | | | | | | | | +--------+ + + + + | 06/30/ | Office | Cardiology | Randell Franks, | | | 2018 | Visit | | [address] | | | | | | [place], [place] | | | | | | [address] | | | | | | [phone] | | | | | | | [...] A1c | 4.3 - 5.6 % | [facility] | | | A1C | [...] [facility] | [address] | [place] [address] | | | SERVICES, SPECIAL | PARK [...]
--- OUTSIDE RECORDS SUMMARY | ~2019-06-01 | XMS | Encounter Summary ---
Demographics + + + | Address | [address] | | | [place] [address] | + + + | Home Phone [...] [place], [place] | | | | | [address] | | + + + + + | Ellie Vang | ECON | Unknown | | + + + + + Care Team Providers + +------+ + | Care Mock Up Maker Name | Role | Phone | [...] | | | | | | [place] [address] | | | +--------+ + + + [...] | | | | | | [place], [place] | | | | | | [address] | | | | | | [phone] | | | | | | | | +--------+ + + + + | 06/24/ | Surgery | Surgery | Chilo, | OPEN VENTRAL HERNIA | | 2018 | | | MD Jorje [address] | REPAIR WITH | | | | | [address] | BIOLOGICAL MESH | | | | | [place], [place] | | | | | | [address] | | | | | | [phone] | | | | | | | | +--------+ + + + + | 06/30/ | Office | Cardiology | Randell Franks, | | | 2018 | Visit | | MD [address] | | | | | | [address] [place], [place] | | | | | | [address] | | | | | | [phone] | | | | | | | | +--------+ + + + + documented as of this encounter Visit Diagnoses Not on filedocumented in this encounter"
--- OUTSIDE RECORDS SUMMARY | ~2019-06-01 | XMS | Encounter Summary ---
Demographics + + + | Address | [address] | | | [place] [address] | + + + | Home Phone [...] [place], [place] | | | | | [address] | | + + + + + | Ellie Vang | ECON | Unknown | | + + + + + Care Team Providers + +------+ + | Care Fleet Technician Name | Role | Phone | + +------+ + | Fadi Goodrich DO | PCP | | + +------+ + Encounter Details +--------+ + + + + | Date | Type | Department | Care Team | Description | +--------+ + + + + | 07/19/ | Abstract | Digestive Health | Kathy Feldman, | | | 2012 | | Center at [facility] [address] | VISUAL MERCHANDISING DIRECTOR [address] | | | | | [address] | [facility] [address] | | | | | Mailcode: Center | [place], [place] | | | | | [facility] and | [address] | | | | | [facility] [address] | [phone] | | | | | [place], [place] | | | | | | [address] | | | | | | [phone] | | | +--------+ + + + [...] Rd | | | | | | [place], [place] | | | | | | [address] | | | | | | [phone] | | | | | | | | +--------+ + + + + | 06/24/ | Surgery | Surgery | Chilo | OPEN VENTRAL HERNIA | | 2018 | | | MD Jorje [address] | REPAIR WITH | | | | | [address] | BIOLOGICAL MESH | | | | | [place], [place] | | | | | | [address] | | | | | | [phone] | | | | | | | | +--------+ + + + + | 06/30/ | Office | Cardiology | Randell Franks, | | | 2018 | Visit | | [address] | | | | | | Ave [place], [place] | | | | | | [address] | | | | | | [phone] | | | | | | | | +--------+ + + + + documented as of this encounter Visit Diagnoses Not on filedocumented in this encounter"
--- OUTSIDE RECORDS SUMMARY | ~2019-06-01 | XMS | Encounter Summary ---
Demographics + + + | Address | [address] | | | [place] [address] | + + + | Home Phone [...] [place], [place] | | | | | [address] | | + + + + + | Ellie Vang | ECON | Unknown | | + + + + + Care Team Providers + +------+ + | Care Continuing Education Director Name | Role | Phone [...] PRINCE Giles | | | | | [place], [place] | [address] | | | 11/12/ | | [address] | [place], [place] | | | 2012 | | [phone] | [address] | | | | | | [phone] | | | | | | | [...] yuriy tral hernia. She was transferred from [place] for surgical evaluation of possible incarcer ated [...] yuriy tral hernia. She was transferred from [place] for surgical evaluation of possible incarcer ated [...] keeping you from eating and drinking, Call [phone]. It is important to stay hydrated! If [...] taking narcotic that contain Tylenol (acetaminophen) Example: [place], Lortab, Vicodin, hydrocodone/APAP, Percocet, Tylenol #3 PAIN MEDICATIONS are ONLY REFILLED during CLINIC APPOINTMENTS. Please call [phone] to schedule an appointment. Your Follow-Up Plan Follow up with ROBIN MEJIA in 2 weeks. Contact information: [address] [facility] [address] Vitals on discharge: Ht 154.9 cm (5' [...] different f rom the original. [facility] DEPARTMENT OF SURGERY [...] clinic - [place] [address] pager number [facility] [phone] [facility] [phone] Aminta Goodwin Md - 11/11/2012 7:40 AM PDT [facility] DEPARTMENT OF SURGERY EMERGENCY GENERAL SURGERY Division of Trauma and Critical Care Attending Physician: Andie Brian MD Progress Note Note Date: 11/11/2012 Admission Date: 11/06/2012 DYLAN ROMERO, [id number] Hospital Day #5 INTERVAL EVENTS none acute [...] mg, Rectal, DAILY PRN, Aminta Wilson MD xjcnaoiotd-phrnpdoyfwsdy-uqbfeyoh (aka FIORICET) 50-325-40 mg 1 Tab, 1 [...] Jayne Ponce MD, 1 mg at 11/10/12801 zuqojgpxmc-nbxqttnupujsm-zodmidnh (aka FIORICET) 50-325-40 mg 1 Tab, 1 [...] in preservative free NaCl 0.9% 50 mL RIG SUPERVISOR infusion, , Intravenous, KIESHA NUGRANT, Aracely Mccartynato, [...] diet -add bowel regimen Acute pain -HM RIG SUPERVISOR, tylenol -convert to oral pain medication once [...] Fluids: LR 125ml/hr Feeding: NPO Analgesia: Dilaudid RIG SUPERVISOR Sedation: not indicated Thromboprophylaxis: enoxaparin Head of [...] Ponce MD, 1 mg at 11/09/12 0855 mnxxzibzxy-ieqmsnmngigee-krgnamxk (aka FIORICET) 50-325-40 mg 1 Tab, 1 [...] in preservative free NaCl 0.9% 50 mL RIG SUPERVISOR infusion, , Intravenous, KIESHA NUOUS, rAacely Cruzo, DO, 0.3 mg at 11/09/12 0853 [...] drainage <30ml for 24hrs Acute pain -HM RIG SUPERVISOR, tylenol Diabetes: -insulin gtt not started due [...] Fluids: LR 125ml/hr Feeding: NPO Analgesia: Dilaudid RIG SUPERVISOR Sedation: not indicated Thromboprophylaxis: enoxaparin Head of bed: > 30 Ulcer prophylaxis: pepcid Glycemic control: adequate Activity/PT/OT: Ongoing Yogurt: ABX on Probiotics:yes AMINTA WILSON MD General Surgery, R1 Kaleb Martin N P - 11/08/2012 8:49 AM PDT [facility] DEPARTMENT OF SURGERY EMERGENCY GENERAL SURGERY Division of Trauma and Critical Care Attending Physician: Andie Brian MD Progress Note Note Date: 11/08/2012 Admission Date: 11/06/2012 DYLAN ROMERO, [id number] Hospital Day #2 INTERVAL EVENTS NO SUBJECTIVE Pain well controlled; has headache attributed to dilaudid RIG SUPERVISOR Tylenol did not help. Flatus: YES Tolerating [...] trials today. -DC ruiz Acute pain -HM RIG SUPERVISOR, tylenol Diabetes: -insulin gtt not started due [...] Fluids: LR 125ml/hr Feeding: NPO Analgesia: Dilaudid RIG SUPERVISOR Sedation: not indicated Thromboprophylaxis: enoxaparin Head of bed: > 30 Ulcer prophylaxis: pepcid Glycemic control: adequate Activity/PT/OT: Ongoing Yogurt: ABX on Probiotics: No KALEB WALKER NP [facility] [address] [place] [address] elvin Stephens MD - 11/07/2012 9:51 PM [...] 7.33* PCO2 49* PO2 113* HCO3 25 TYOIP4VGJ 26 X1PIDOJY 98.3* V8HMDFCUK -- FIO2 60 ABGEXCESS -0.9 Assessment, Medical Decision Making and Plan 1. Incarcerated hernia, now s/p repair and panniculectomy -Binder, pain control, minimize nausea and coughing PRN. -NG clamping trials today. 2. Acute pain -HM RIG SUPERVISOR, tylenol 3. Diabetes: -insulin gtt 4. Morbid [...] Dione Grimes MD R-2, General Surgery Pager: [phone] [facility] [place] Department of Surgery Trauma ICU Team Pager (24hrs/day): [phone] I was present with the resident during the history and exam. I discussed the case with the resident and agree with the findings and plan as documented in the resident s note. KELVIN STEPHENS MD [facility] [address] [facility] [place] [address] [id number] uOnur patton MD - 11/07/2012 2:37 AM [...] in preservative free NaCl 0.9% 50 mL RIG SUPERVISOR infusion Intravenous CON TINUOUS Aracely Flores, DO [...] POD#1 s/p primary repair. 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 drupal web developer and prn tylenol, continue prozac and zyprexa [...] F: probable remain NPO today A: dilaudid drupal web developer, prn tylenol S: prn benzos as she is at home T: will start prophylactic lovenox today H: HOB >30 degrees U: pepcid G: insulin gtt ONUR ALLEN MD, PGY3 [facility] [address] [id number] [place] [address] Onelia Shrestha MD - 11/06/2012 8:41 AM PDT [facility] DEPARTMENT OF SURGERY Division of Trauma and Critical Care Emergency General Surgery / Acute Care Surgery Attending Physician: Andie Brian MD Note Date: 11/06/2012 Admission Date: 11/06/2012 DYLAN ROMERO, [id number] Hospital Day #0 OVERNIGHT EVENTS: anxious SUBJECTIVE: [...] zenia LABS: reviewed and are available in [employer] (if new data) IMAGING: VASCULAR: IMPRESSION: Dylan [...] | | | | | | [place], [place] | | | | | | [address] | | | | | | [phone] | | | | | | | | +--------+ + + + + | 06/24/ | Surgery | Surgery | Chilo, | OPEN VENTRAL HERNIA | | 2018 | | | MD Jorje [address] | REPAIR WITH | | | | | [address] | BIOLOGICAL MESH | | | | | [place], [place] | | | | | | [address] | | | | | | [phone] | | | | | | | | +--------+ + + + + | 06/30/ | Office | Cardiology | Randell Franks, | | | 2018 | Visit | | [address] | | | | | | [place], [place] | | | | | | [address] | | | | | | [phone] | | | | | | | [...] Mae | | | | | | [place] | | | | + + + [...] AMES | [address] | [place], [place] | | | [facility] | [address] | [address] | | | TESTS | | | [...] MARQUAM | [address] | [place], [place] | | | [facility] OF CARE | [address] | [address] | | | TESTS | | | [...] [facility] | [address] | [place] [address] | | | SERVICES, CORE | CLARENCE [...] [facility] | [address] | [place] [address] | | | SERVICES, CORE | [address] | | | + + + + + MAGNESIUM, PLASMA (11/12/2012 3:56 AM PDT) + +-------+ + + + | Component | Value | Ref Range | Performed | Pathologist | | | | | At | Signature | + +-------+ + + + | MAGNESIUM,P | 1.8 | 1.8 - 2.5 mg/dL | MNSU [...] + + | [facility] [employer] | [address] | [place] [address] | | | SERVICES, CORE | CLARENCE [...] Y[facility] | [address] | [place] | | | [facility] CARE | [address] | [address] | | | TESTS | | | [...] MARQUAM | [address] | [place], [place] | | | [facility] OF JAKY | [address] | [address] | | | TESTS | | | [...] AMES | [address] | [place], [place] | | | [facility] CARE | [address] | [address] | | | TESTS | | | [...] MARQUAM | [address] | [place] | | | [facility] OF [place]AK[place] | [address] | [address] | | | TESTS | | | [...] KWAKU | [address] | [place], [place] | | | [facility] [facility] | [facility] | [address] | | | TESTS | | | [...] [facility] | [address] | [place] [address] | | | SERVICES, CORE | [address] [...] + + | [facility] [employer] | [address] [facility] | [place] [address] | | | SERVICES, CORE | CLARENCE [...] [facility] | [address] | [place] [address] | | | SERVICES, CORE | CLARENCE [...] - MARQUAM | [address] | [place] | | | [facility] [facility]ARE | [address] | [address] | | | TESTS | | | [...] + + + | NKECHI AMES | [address] | [place], [place] | | | [facility] | [address] | [address] | | | TESTS | | | [...] MARQUAM | [address] | [place], [place] | | | [facility] [facility]ARE | [address] | [address] | | | TESTS | | | [...] - MARQUAM | [address] | [place], [place] | | | [facility] | [address] | [address] | | | TESTS | | | [...] AMES | [address] | [place], [place] | | | [facility] [place] | [address] | [address] | | | TESTS | | | [...] | + + + + + | [facility] | [address] [facility] | [place] [address] | | | SERVICES, CORE | CLARENCE [...] HOSPITAL LAB[facility]ATORY | [address] | [place] [address] | | | SERVICES, CORE | [address] | | | + + + + + MAGNESIUM, PLASMA (11/10/2012 3:40 AM PDT) + +---------+ + + + | Component | Value | Ref Range | Performed | Pathologist | | | | | At | Signature | + +---------+ + + + | MAGNESIUM,P | 1.5 (L) | 1.8 - 2.5 mg/dL | MNORIN | | | PRASHANTMA | | | [...] | + + + + + | [facility] | [address] | [place] [address] | | | SERVICES, CORE | PARK [...] AMES | [address] | [place], [place] | | | [facility]ARE | [address] | [address] | | | TESTS | | | [...] MARQUAM | [address] | [place] | | | [facility] [facility]ARE | [address] | [address] | | | TESTS | | | [...] - KWAKU | [address] | [place], [place] | | | [facility] CARE | [address] | [address] | | | TESTS | | | [...] - | | | | | | [facility] | | + + + + + + | SOURCE BODY | Urine | | [facility] - | | | SITE | | | AIRPORT - | | | | | | [place] | | + + + + + + | CULTURE | C UrineSource: Urine | | [facility] - | | | RESULT | | | AIRPORT - | | | | Final CULTURE | | [place] | | | | RESULT:>100,000 cfu/ml | [...] + | [facility] - AIRPORT - | [address] | [place] [address] | | | [facility] | | | | + [...] [facility] | [address] | [place] [address] | | | SERVICES, CORE | PARK [...] [facility] | [address] | [place] [address] | | | SERVICES, CORE | [...] - KWAKU | [address] | [place] | | | [place] [facility] | [address] | [address] | | | TESTS | | | [...] + + | [facility] [employer] | [address] [facility] | [place] [address] | | | CLAIRE, LYDIA | CLARENCE [...] | + + + + + | [facility] | [address] | [place] [address] | | | SERVICES, CORE | CLARENCE [...] [facility] | [address] | [place] [address] | | | SERVICES, LYDIA | CLARENCE [...] KWAKU | [address] | [place], [place] | | | [facility]ARE | [address] | [address] | | | TESTS | | | [...] AMES | [address] | [place], [place] | | | [facility] | [address] | [address] | | | TESTS | | | [...] MARQUAM | [address] | [place] | | | [facility] OF CARE | [address] | [address] | | | TESTS | | | [...] [facility] | [address] | [place] [address] | | | SERVICES, CORE | PARK [...] [facility] | [address] | [place] [address] | | | SERVICES, CORE | PARK [...] | + + + + + | [facility] | [address] | [place] [address] | | | SERVICES, CORE | CLARENCE [...] MARQUAM | [address] | [place], [place] | | | [facility] POINT OF CARE | [address] | [address] | | | TESTS | | | [...] KWAKU | [address] | [place], [place] | | | [facility] OF CARE | [address] | [address] | | | TESTS | | | [...] AMES | [address] | [place], [place] | | | [facility] OF [facility] | [address] | [address] | | | TESTS | | | [...] | + + + + + | [facility] | [address] | [place] [address] | | | SERVICES, CORE | CLARENCE [...] [facility] | [address] | [place] [address] | | | CLAIRE, LYDIA | PARK [...] | + + + + + | [facility] | [address] | [place] [address] | | | SERVICES, CORE | [address] | | | + + + + + X-RAY PORTABLE CHEST 1 VIEW (11/06/2012 4:46 PM PDT) + + + + + + | Component | Value | Ref Range | Performed | Pathologist | | | | | At | Signature | + + + + + + | X-RAY | STUDY: ID CHEST 1 VIEW | | | | | PORTABLE | 11/06/12 16:46:00 | | | | | CHEST 1 | INDICATION: Right upper | | | | | VIEW | lobe opacity. | | | | | | COMPARISON: Earlier same | | | | | | day a STUDY: ID CHEST 1 | | | | | [...] + + + | X-RAY | STUDY: ID CHEST 1 VIEW | | | | [...] | + + + + + | [facility] | [address] | [place] [address] | | | SERVICES, CORE | CLARENCE [...] [facility] | [address] | [place] [address] | | | SERVICES, CORE | CLARENCE [...] [facility] | [address] | [place] [address] | | | SERVICES, CORE | CLARENCE [...] AMES | [address] | [place] | | | [facility] CARE | [address] | [address] | | | TESTS | | | [...] AMES | [address] | [place], [place] | | | [facility] POINT OF CARE | [address] | [address] | | | TESTS | | | [...] MARQUAM | [address] | [place], [place] | | | [facility] | [address] | [address] | | | TESTS | | | [...] [facility]U | [address] | [place], [place] | | | [facility] CARE | [facility] | [address] | | | TESTS | | | [...] AMES | [address] | [place] | | | [facility] CARE | [facility] | [address] | | | TESTS | | | [...] KWAKU | [address] | [place], [place] | | | [facility] CARE | [address] | [address] | | | TESTS | | | [...] KWAKU | [address] | [place], [place] | | | [facility] CARE | [facility] | [address] | | | TESTS | | | [...] AMES | [address] | [place], [place] | | | [facility] CARE | [facility] | [address] | | | TESTS | | | [...] KWAKU | [address] | [place], [place] | | | [facility] | [address] | [address] | | | TESTS | | | [...] MARQUAM | [address] | [place] | | | [facility] CARE | [address] | [address] | | | TESTS | | | [...] AMES | [address] | [place] | | | [facility] CARE | [address] | [address] | | | TESTS | | | [...] LABORATORY | [address] | [place] [address] | | | CLAIRE, | [address] [...] KWAKU | [address] | [place] | | | [facility] CARE | [address] | [address] | | | TESTS | | | [...] | + + + + + | [facility] | [address] | [place] [address] | | | SERVICES, | [address] [...] [facility] | [address] | [place] [address] | | | SERVICES, | [address] [...] | + + + + + | [facility] | [address] [facility] | [place] [address] | | | SERVICES, CORE | CLARENCE [...] HOSPITAL LAB[facility]ORY | [address] | [place] [address] | | | SERVICES, CORE | PARK [...] [facility] | [address] | [place] [address] | | | SERVICES, CORE | PARK [...] HOSPITAL LAB[facility]ORY | [address] | [place] [address] | | | SERVICES, CORE | [address] [...] [facility] | [address] [facility] | [place] [address] | | | LYDIA RANGEL | CLARENCE [...] view image for the detailed interpretation from [employer] ([employer] results. | CARDIOLOGY | + + + + + + + + | Performing | Address | City/State/Zipcode | Phone Number | | Organization | | | | + + + + + | [facility] | [address] | [facility] [place] | | | CARDIOLOGY | [address] | [address] | | + + + + + [...] [facility] | [address] | [place] [address] | | | SERVICES, CORE | PARK [...] [facility] | [address] | [place] [address] | | | SERVICES, CORE | CLARENCE [...] | 1 tablet | | | | epuvkmhtie-yacpiqhyarpjp-bgduhdlc | | 13 8:02 | | | [...] 13 7:36 | | | | | RIG SUPERVISOR infusion intravenous, | | PM PDT | [...]
--- OUTSIDE RECORDS SUMMARY | ~2019-06-01 | XMS | Encounter Summary ---
Demographics + + + | Address | [address] | | | [place] [address] | + + + | Home Phone [...] [place], [place] | | | | | [address] | | + + + + + | Ellie Vang | ECON | Unknown | | + + + + + Care Team Providers + +------+ + | Care Corporate Representative Name | Role | Phone | [...] | | | | | | [place] [address] | | | +--------+ + + + [...] | | | | | | [place], [place] | | | | | | [address] | | | | | | [phone] | | | | | | | | +--------+ + + + + | 06/24/ | Surgery | Surgery | Chilo, | OPEN VENTRAL HERNIA | | 2019 | | | MD Jorje [address] | REPAIR WITH | | | | | [address] | BIOLOGICAL MESH | | | | | [place] | | | | | | [address] | | | | | | [phone] | | | | | | | | +--------+ + + + + | 06/30/ | Office | Cardiology | Randell Franks, | | | 2018 | Visit | | [address] | | | | | | [place] | | | | | | [address] | | | | | | [phone] | | | | | | | | +--------+ + + + + documented as of this encounter Visit Diagnoses Not on filedocumented in this encounter"
--- OUTSIDE RECORDS SUMMARY | ~2019-06-01 | XMS | Encounter Summary ---
Demographics + + + | Address | [address] | | | [place] [address] | + + + | Home Phone [...] [place], [place] | | | | | [address] | | + + + + + | Ellie Vang | ECON | Unknown | | + + + + + Care Team Providers + +------+ + | Care Specialty Sales Consultant Name | Role | Phone [...] | | | | and over, | [place], [place] | [facility] | | | | | adult (HCC) | [address] | for Health | | | | | Severe | Phone: | and Healing, | | | | | muscle | | Building [address], | | | | | deconditioni | Fax: | [address] | | | | | ng | [phone] | [place], [place] | | | | | Procedures | | [address] | | | | | PHYSICAL | | Phone: | | | | | THERAPY | | [phone] | | | | | REFERRAL | | Fax: | | | | | | | [phone] | +--------+--------+ + + + + Encounter Details +--------+ + + + + | Date | Type | Department | Care Team | Description | +--------+ + + + + | 02/02/ | Intelligence Senior Sergeant | Digestive Health | Shereen Georges, | Morbid obesity with | | 2017 | | Center at [facility] [address] | ACNP [address] | BMI of 70 and over, | | | | [address] | [facility] [place] | adult (HCC) (Primary | | | | Mailcode: Center | [address] | Dx); Severe muscle | | | | for Health and | | deconditioning | | | | Healing, [address] | | | | | | [place], [place] | | | | | | [address] | | | | | | | [...] Rd | | | | | | [place], [place] | | | | | | [address] | | | | | | [phone] | | | | | | | | +--------+ + + + + | 06/24/ | Surgery | Surgery | Chilo, | OPEN VENTRAL HERNIA | | 2018 | | | MD Demond [address] | REPAIR WITH | | | | | [address] | BIOLOGICAL MESH | | | | | [place], [place] | | | | | | [address] | | | | | | [phone] | | | | | | | | +--------+ + + + + | 06/30/ | Office | Cardiology | Randell Franks, | | | 2018 | Visit | | MD [address] | | | | | | [place], [place] | | | | | | [address] | | | | | | [phone] | | | | | | | [...]
--- OUTSIDE RECORDS SUMMARY | ~2019-06-01 | XMS | Encounter Summary ---
Demographics + + + | Address | [address] | | | [place] [address] | + + + | Home Phone [...] [place], [place] | | | | | [address] | | + + + + + | Ellie Vang | ECON | Unknown | | + + + + + Care Team Providers + +------+ + | Care Salesman/Owner Name | Role | Phone | + [...] | [address] | [place], [place] | | | | | Mailcode: CH9A | [address] | | | | | [facility] | [phone] | | | | | and Healing, | | | | | | [address] | | | | | | [place], [place] | | | | | | [address] | | | | | | [phone] | | | +--------+ + + + [...] Rd | | | | | | [place], [place] | | | | | | [address] | | | | | | [phone] | | | | | | | | +--------+ + + + + | 06/24/ | Surgery | Surgery | Chilo, | OPEN VENTRAL HERNIA | | 2018 | | | MD Jorje [address] | REPAIR WITH | | | | | [address] | BIOLOGICAL MESH | | | | | [place], [place] | | | | | | [address] | | | | | | [phone] | | | | | | | | +--------+ + + + + | 06/30/ | Office | Cardiology | Randell Franks, | | | 2019 | Visit | | MD [address] | | | | | | [place], [place] | | | | | | [address] | | | | | | [phone] | | | | | | | | +--------+ + + + + documented as of this encounter Visit Diagnoses Not on filedocumented in this encounter"
--- OUTSIDE RECORDS SUMMARY | ~2019-06-01 | XMS | Encounter Summary ---
Demographics + + + | Address | [address] | | | [place] [address] | + + + | Home Phone [...] [place], [place] | | | | | [address] | | + + + + + | Ellie Vang | ECON | Unknown | | + + + + + Care Team Providers + +------+ + | Care Restaurant Line Server Name | Role | Phone | [...] Medical Records | | 2018 | | Jaroso [address] | [address] | Review | | | | Ave Mailcode: CH4S | [place], [place] | | | | | [facility] | [address] | | | | | and [place], | [phone] | | | | | [place] [address] | | | | | | Floor [place], [place] | | | | | | [address] | | | | | | [phone] | | | +--------+ + + + [...] [place] | | | | | | [address] | | | | | | [phone] | | | | | | | | +--------+ + + + + | 06/24/ | Surgery | Surgery | Chilo | OPEN VENTRAL HERNIA | | 2018 | | | MD [address] | REPAIR WITH | | | | | [address] | BIOLOGICAL MESH | | | | | [place], [place] | | | | | | [address] | | | | | | [phone] | | | | | | | | +--------+ + + + + | 06/30/ | Office | Cardiology | Randell Franks, | | | 2019 | Visit | | MD [address] | | | | | | [address] [place], [place] | | | | | | [address] | | | | | | [phone] | | | | | | | | +--------+ + + + + documented as of this encounter Visit Diagnoses Not on filedocumented in this encounter"
--- OUTSIDE RECORDS SUMMARY | ~2019-06-01 | XMS | Encounter Summary ---
Demographics + + + | Address | [address] | | | [place] [address] | + + + | Home Phone [...] [place], [place] | | | | | [address] | | + + + + + | Ellie Vang | ECON | Unknown | | + + + + + Care Team Providers + +------+ + | Care Reeling And Tubing Machine Operator Name | Role | Phone [...] | | | | | Procedures | [place], [place] | | | | | | TRANSTHORACI | [address] | | | | | | C | Phone: | | | | | | ECHOCARDIOGR | [phone] | | | | | | AM, ADULT | Fax: | | | | | | | [phone] | | +--------+--------+ + + + + [...] | 2016 | Visit | Preventive at [facility] | MD Deion Farris | exertion) (Primary | | | | eDion Farris Avyesenia | Alma Delia [place], [place] | Dx) | | | | Mailcode: CH9A | [address] | | | | | [facility] | [phone] | | | | | and Erick, | | | | | | Building [address] | | | | | | [place], [place] | | | | | | [address] | | | | | | [phone] | | | +--------+---------+ + + + [...] 500 mg by mouth once daily. CALCIUM CRB&FLS-X5-HXS22-GENIS ORAL Take 1 tablet by mouth two [...] himself to the local hospit al in [place] and so this has been delayed. ROS: [...] lose the additional weight requested by [facility]. This current weight [...] [place] | | | | | | [address] | | | | | | [phone] | | | | | | | | +--------+ + + + + | 06/24/ | Surgery | Surgery | Chilo, | OPEN VENTRAL HERNIA | | 2018 | | | MD Jorje [address] | REPAIR WITH | | | | | [address] | BIOLOGICAL MESH | | | | | [place], [place] | | | | | | [address] | | | | | | [phone] | | | | | | | | +--------+ + + + + | 06/30/ | Office | Cardiology | Randell Franks, | | | 2018 | Visit | | [address] | | | | | | [address] [place], [place] | | | | | | [address] | | | | | | [phone] | | | | | | | [...]
--- OUTSIDE RECORDS SUMMARY | ~2019-06-01 | XMS | Encounter Summary ---
Demographics + + + | Address | [address] | | | [place] [address] | + + + | Home Phone [...] [place], [place] | | | | | [address] | | + + + + + | Ellie Vang | ECON | Unknown | | + + + + + Care Team Providers + +------+ + | Care Upward Bound Director Name | Role | Phone | [...] repair incarcerated | | 2012 | | [facility] | [address] [facility] | ventral hernia; | | | | Admitting Desk | [address] | possible bowel | | | | Located on the | [place], [place] | resection; | | | | floor [address] [facility] | [address] | | | | | [address] | [phone] | | | | | [place], [place] | | | | | | [address] | | | +--------+---------+ + + + [...] yuriy tral hernia. She was transferred from [place] for surgical evaluation of possible incarcer ated [...] Cipro. POD 5 she was discharged [place], tolerating a diabetic diet. Having bowel function. [...] yuriy tral hernia. She was transferred from [place] for surgical evaluation of possible incarcer ated [...] Cipro. POD 5 she was discharged [place], tolerating a diabetic diet. Having bowel function. [...] keeping you from eating and drinking, Call [phone]. It is important to stay hydrated! If [...] taking narcotic that contain Tylenol (acetaminophen) Example: Eugene, Lortab, Vicodin, hydrocodone/APAP, Percocet, Tylenol #3 PAIN MEDICATIONS are ONLY REFILLED during CLINIC APPOINTMENTS. Please call [phone] to schedule an appointment. Your Follow-Up Plan Follow up with RBOIN MEJIA in 2 weeks. Contact information: [address] [facility] [address] Vitals on discharge: Ht 154.9 cm (5' [...] different f rom the original. [facility] DEPARTMENT OF SURGERY EMERGENCY GENERAL SURGERY Division [...] without erythema and no infecti on noted. [place] intact : good urine output and Patient [...] clinic - [place] [address] pager number [place] [phone] [facility] [address] Aminta Goodwin Md - 11/11/2012 7:40 AM PDT [facility] DEPARTMENT OF SURGERY EMERGENCY GENERAL SURGERY Division of Trauma and Critical Care Attending Physician: Andie Brian MD Progress Note Note Date: 11/11/2012 Admission Date: 11/06/2012 DYLAN ROMERO, [id number] Hospital Day #5 INTERVAL EVENTS none acute [...] mg, Rectal, DAILY PRN, Aminta Wilson MD jtmijsvbnd-aqnrgfqqwczvj-itsyotoc (aka FIORICET) 50-325-40 mg 1 Tab, 1 [...] Jayne Ponce MD, 1 mg at 11/10/12801 aqplnhurzx-tetcnyavtxnqx-atdhegpp (aka FIORICET) 50-325-40 mg 1 Tab, 1 [...] in preservative free NaCl 0.9% 50 mL MANUFACTURERS SERVICE REPRESENTATIVE infusion, , Intravenous, KIESHA NUOUS, Aracely Flores [...] diet -add bowel regimen Acute pain -HM MANUFACTURERS SERVICE REPRESENTATIVE, tylenol -convert to oral pain medication once [...] Fluids: LR 125ml/hr Feeding: NPO Analgesia: Dilaudid MANUFACTURERS SERVICE REPRESENTATIVE Sedation: not indicated Thromboprophylaxis: enoxaparin Head of [...] Ponce MD, 1 mg at 11/09/12 0855 nessttxkrp-qptwmipsaazrf-plkucbnr (aka FIORICET) 50-325-40 mg 1 Tab, 1 Tab, Oral, Q4H PRN, Kaleb Walker NP, 1 Tab at 11/09/12 0443 dextrose IV 25 mL, 25 mL, Intravenous, PRN, Danny Lagos MD enoxaparin (aka LOVENOX) injection 30 mg, 30 mg, Subcutaneous, Q12H (Scheduled), Araceyl zhu DO, 30 mg at 11/09/12 0857 [...] in preservative free NaCl 0.9% 50 mL MANUFACTURERS SERVICE REPRESENTATIVE infusion, , Intravenous, KIESHA NUOUS, Aracely Flores [...] drainage <30ml for 24hrs Acute pain -HM MANUFACTURERS SERVICE REPRESENTATIVE, tylenol Diabetes: -insulin gtt not started due [...] Fluids: LR 125ml/hr Feeding: NPO Analgesia: Dilaudid MANUFACTURERS SERVICE REPRESENTATIVE Sedation: not indicated Thromboprophylaxis: enoxaparin Head of bed: > 30 Ulcer prophylaxis: pepcid Glycemic control: adequate Activity/PT/OT: Ongoing Yogurt: ABX on Probiotics:yes AMINTA WILSON MD General Surgery, R1 aleb Walker S, N P - 11/08/2012 8:49 AM PDT [facility] DEPARTMENT OF SURGERY EMERGENCY GENERAL SURGERY Division of Trauma and Critical Care Attending Physician: Andie Brian MD Progress Note Note Date: 11/08/2012 Admission Date: 11/06/2012 DYLAN ROMERO, [id number] Hospital Day #2 INTERVAL EVENTS NO SUBJECTIVE Pain well controlled; has headache attributed to dilaudid MANUFACTURERS SERVICE REPRESENTATIVE Tylenol did not help. Flatus: YES Tolerating [...] trials today. -DC ruiz Acute pain -HM MANUFACTURERS SERVICE REPRESENTATIVE, tylenol Diabetes: -insulin gtt not started due [...] Fluids: LR 125ml/hr Feeding: NPO Analgesia: Dilaudid MANUFACTURERS SERVICE REPRESENTATIVE Sedation: not indicated Thromboprophylaxis: enoxaparin Head of bed: > 30 Ulcer prophylaxis: pepcid Glycemic control: adequate Activity/PT/OT: Ongoing Yogurt: ABX on Probiotics: No KALEB WALKER NP [facility] [address] [place] [facility] elvin Stephens MD - 11/07/2012 9:51 [...] 7.33* PCO2 49* PO2 113* HCO3 25 TAUQL6PBS 26 E1ULJKTD 98.3* D6LGYBKND -- FIO2 60 ABGEXCESS -0.9 Assessment, Medical Decision Making and Plan 1. Incarcerated hernia, now s/p repair and panniculectomy -Binder, pain control, minimize nausea and coughing PRN. -NG clamping trials today. 2. Acute pain -HM MANUFACTURERS SERVICE REPRESENTATIVE, tylenol 3. Diabetes: -insulin gtt 4. Morbid [...] Dione Grimes MD R-2, General Surgery Pager: [phone] [facility] [place] Department of Surgery Trauma ICU Team Pager (24hrs/day): [phone] I was present with the resident during the history and exam. I discussed the case with the resident and agree with the findings and plan as documented in the resident s note. KELVIN STEPHENS MD [facility] [address] [facility] [place] [address] [id number] Onur Graves MD - 11/07/2012 2:37 AM [...] in preservative free NaCl 0.9% 50 mL MANUFACTURERS SERVICE REPRESENTATIVE infusion Intravenous CON TINUOUS Aracely Flores, DO [...] POD#1 s/p primary repair. 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 welding operator and prn tylenol, continue prozac and [...] F: probable remain NPO today A: dilaudid robotic welding operator, prn tylenol S: prn benzos as she is at home T: will start prophylactic lovenox today H: HOB >30 degrees U: pepcid G: insulin gtt ONUR ALLEN MD, PGY3 [place] [address] [facility] [address] 5c[address]/uhs8t [place] [address] Onelia Shrestha MD - 11/06/2012 8:41 AM PDT [facility] DEPARTMENT OF SURGERY Division of Trauma and Critical Care Emergency General Surgery / Acute Care Surgery Attending Physician: Andie Brian MD Note Date: 11/06/2012 Admission Date: 11/06/2012 DYLAN ROMERO, [id number] Hospital Day #0 OVERNIGHT EVENTS: anxious SUBJECTIVE: [...] wwp LABS: reviewed and are available in [facility] (if new data) IMAGING: VASCULAR: IMPRESSION: Dylan [...] Rd | | | | | | [place], [place] | | | | | | [address] | | | | | | [phone] | | | | | | | | +--------+ + + + + | 06/24/ | Surgery | Surgery | Chilo, | OPEN VENTRAL HERNIA | | 2018 | | | MD Jorje [address] | REPAIR WITH | | | | | [address] | BIOLOGICAL MESH | | | | | [place], [place] | | | | | | [address] | | | | | | [phone] | | | | | | | | +--------+ + + + + | 06/30/ | Office | Cardiology | Randell Franks, | | | 2018 | Visit | | [address] | | | | | | [address] [place], [place] | | | | | | [address] | | | | | | [phone] | | | | | | | [...] Mae | | | | | | [place] | | | | + + + [...] AMES | [address] | [place], [place] | | | [facility] J[facility]Y | [address] | [address] | | | TESTS | | | [...] MARQUAM | [address] | [place], [place] | | | [facility] CARE | [address] | [address] | | | TESTS | | | [...] [address] | [place] [address] | | | SERVICES, CORE | PARK [...] [address] | [place] [address] | | | LYDIA RANGEL | PARK [...] [facility] | [address] | [place] [address] | | | SERVICES, CORE | CLARENCE [...] MARQUAM | [address] | [place], [place] | | | [place] OF CARE | [address] | [address] | | | TESTS | | | [...] MARQUAM | [address] | [place], [place] | | | [place]INT OF CARE | [address] | [address] | | | TESTS | | | [...] + + + | NKECHI AMES | [address] | [place], [place] | | | [place] [facility]ARE | [address] | [address] | | | TESTS | | | [...] MARQUAM | [address] | [place], [place] | | | [place] [facility] CARE | [address] | [address] | | | TESTS | | | [...] - KWAKU | [address] | [place], [place] | | | [place] OF [facility] | [address] | [address] | | | TESTS | | | [...] [facility] | [address] | [place] [address] | | | SERVICES, CORE | PARK [...] + + | [facility] [employer] | [address] | [place] [address] | | | CLAIRE, LYDIA | CLARENCE [...] [facility] | [address] | [place] [address] | | | LYDIA RANGEL | CLARENCE [...] YAKOVAM | [address] | [place], [place] | | | JUST[facility]WN OF [facility] | [address] | [address] | | | TESTS | | | [...] AMES | [address] | [place], [place] | | | [facility]Y | [facility] | [address] | | | TESTS | | | [...] | | | POC | | | LÓP[place], POINT | | | | | | [...] KWAKU | [address] | [place], [place] | | | JUST[facility] DAWN OF [facility] | [address] | [address] | | | TESTS | | | [...] MARQUAM | [address] | [place], [place] | | | JUST[facility] [place]AKY | [facility] | [address] | | | TESTS | | | [...] AMES | [address] | [place], [place] | | | [place] PO[place] OF [facility] | [address] | [address] | | | TESTS | | | [...] / [facility] | [address] [facility] | [place] [address] | | | SERVICES, CORE | CLARENCE [...] equation recommended by the | [facility] | | National Kidney Disease Education Program. [...] [facility] | [address] | [place] [address] | | | SERVICES, CORE | [address] | | | + + + + + MAGNESIUM, PLASMA (11/10/2012 3:40 AM PDT) + +---------+ + + + | Component | Value | Ref Range | Performed | Pathologist | | | | | At | Signature | + +---------+ + + + | MAGNESIUM,P | 1.5 (L) | 1.8 - 2.5 mg/dL | [facility] | | | L[facility]MA | | | [...] [facility] | [address] | [place] [address] | | | SERVICES, CORE | CLARENCE [...] KWAKU | [address] | [place], [place] | | | JUST[facility] JAKY | [facility] | [address] | | | TESTS | | | [...] KWAKU | [address] | [place], [place] | | | JUSTINE DAWN OF CARE | [facility] | [address] | | | TESTS | | | | + + + + + CAPILLARY BLOOD GLUCOSE (NO CHG), POC (11/09/2012 12:19 PM PDT) + +-------+ + + + | Component | Value | Ref Range | Performed | Pathologist | | | | | At | Signature | + +-------+ + + + | BLOOD | 81 | 60 - 99 mg/dL | [facility] [...] + + + | NKECHI AMES | [address] | [place], [place] | | | [facility] OF [facility] | [address] | [address] | | | TESTS | | | [...] | | | Final CULTURE | | [place] | | | | RESULT:>100,000 cfu/ml | [...] + | [facility] - | [address] | [place] [address] | | | [facility] | | | | + + [...] [facility] | [address] | [place] [address] | | | SERVICES, CORE | CLARENCE [...] [address] | [place] [address] | | | SERVICES, CORE | PARK [...] - KW[facility]U | [address] | [place], [place] | | | [place] POINT OF CARE | [address] | [address] | | | TESTS | | | [...] / [facility] | [address] [facility] | [place] [address] | | | LYDIA RANGEL | CLARENCE [...] [facility] | [address] | [place] [address] | | | SERVICES, LYDIA | PARK [...] [address] | [place] [address] | | | LYDIA RANGEL | CLARENCE [...] 86 | 60 - 99 mg/dL | [facility] [...] MARQUAM | [address] | [place] | | | [facility]Y | [facility] | [address] | | | TESTS | | | [...] | NKECHI AMES | [address] | [place], [place] | | | [place] POINT OF CARE | [address] | [address] | | | TESTS | | | [...] MARQUAM | [address] | [place], [place] | | | [place] POINT OF CARE | [address] | [address] | | | TESTS | | | [...] [address] | [place] [address] | | | SERVICES, CORE | PARK [...] [address] | [place] [address] | | | SERVICES, CORE | PARK [...] [facility] | [address] | [place] [address] | | | SERVICES, LYDIA | CLARENCE [...] MARQUAM | [address] | [place], [place] | | | [facility]WN OF CARE | [facility] | [address] | | | TESTS | | | [...] MARQUAM | [address] | [place], [place] | | | JUST[facility] CARE | [facility] | [address] | | | TESTS | | | [...] AMES | [address] | [place], [place] | | | [place] POINT OF CARE | [address] | [address] | | | TESTS | | | [...] [facility] | [address] | [place] [address] | | | SERVICES, CORE | CLARENCE [...] [address] | [place] [address] | | | SERVICES, CORE | PARK [...] [facility] | [address] | [place] [address] | | | SERVICES, CORE | [address] | | | + + + + + X-RAY PORTABLE CHEST 1 VIEW (11/06/2012 4:46 PM PDT) + + + + + + | Component | Value | Ref Range | Performed | Pathologist | | | | | At | Signature | + + + + + + | X-RAY | STUDY: KS CHEST 1 VIEW | | | | | PORTABLE | 11/06/12 16:46:00 | | | | | CHEST 1 | INDICATION: Right upper | | | | | VIEW | lobe opacity. | | | | | | COMPARISON: Earlier same | | | | | | day a STUDY: [place] CHEST 1 | | | | | [...] + + + | X-RAY | STUDY: [place] CHEST 1 VIEW | | | | [...] 270 | 150 - 400 K/cu | [facility] | | | COUNT | | mm [...] [facility] | [address] | [place] [address] | | | SERVICES, CORE | PARK [...] | [facility] | [address] [facility] | [place] [address] | | | SERVICES, CORE | PARK [...] [facility] | [address] | [place] [address] | | | SERVICES, CORE | CLARENCE [...] AMES | [address] | [place], [place] | | | [facility] CARE | [address] | [address] | | | TESTS | | | [...] AMES | [address] | [place], [place] | | | [facility]Y | [address] | [address] | | | TESTS | | | [...] MARQUAM | [address] | [place], [place] | | | [place] POINT OF CARE | [address] | [address] | | | TESTS | | | [...] KWAKU | [address] | [place], [place] | | | JUSTINE [facility]WN OF JAKY | [facility] | [address] | | | TESTS | | | [...] AMES | [address] | [place], [place] | | | [place] POINT OF CARE | [address] | [address] | | | TESTS | | | [...] MARPATAM | [address] | [place], [place] | | | JUSTINE [facility]WN OF JAKY | [facility] | [address] | | | TESTS | | | [...] MARQUAM | [address] | [place], [place] | | | JUSTINE DAWN OF CARE | [facility] | [address] | | | TESTS | | | [...] AMES | [address] | [place], [place] | | | [place] POINT OF CARE | [address] | [address] | | | TESTS | | | [...] YAKOVAM | [address] | [place] | | | JUSTINE [facility]WN OF CARE | [address] | [address] | | | TESTS | | | [...] MARQUAM | [address] | [place], [place] | | | [place] POINT OF CARE | [address] | [address] | | | TESTS | | | [...] AMES | [address] | [place], [place] | | | JUSTINE DANW OF JAKY | [address] | [address] | | | TESTS | | | [...] [facility] | [address] | [place] [address] | | | CLAIRE | CLARENCE BONNER [...] YAKOVAM | [address] | [place], [place] | | | [place] POINT OF CARE | [address] | [address] | | | TESTS | | | [...] [facility] | [address] | [place] [address] | | | SERVICES, | [address] [...] [address] | [place] [address] | | | SERVICES, | [address] [...] [facility] | [address] | [place] [address] | | | SERVICES, CORE | CLARENCE [...] | [address] | [place] [address] | | | SERVICES, LYDIA | PARK [...] [address] | [place] [address] | | | SERVICES, CORE | PARK [...] [facility] | [address] | [place] [address] | | | SERVICES, CORE | PARK [...] equation recommended by the | [facility] | | National Kidney Disease Education Program. [...] [facility] | [address] | [place] [address] | | | LYDIA RANGEL | CLARENCE [...] view image for the detailed interpretation from [employer] results. | CARDIOLOGY | + + + + + + + + | Performing | Address | City/State/Zipcode | Phone Number | | Organization | | | | + + + + + | [facility] | [address] | [place], [place] | | | CARDIOLOGY | [address] | [address] | | + + + + + [...] [address] | [place] [address] | | | SERVICES, CORE | PARK [...] [address] | [place] [address] | | | SERVICES, LYDIA | CLARENCE BONNER | | | + + + + + documented in this encounter Visit Diagnoses + + | Diagnosis | + + | Incarcerated ventral hernia Ventral hernia, unspecified, with obstruction | + + documented in this encounter
--- OUTSIDE RECORDS SUMMARY | ~2019-06-01 | XMS | Encounter Summary ---
Demographics + + + | Address | [address] | | | [place] [address] | + + + | Home Phone [...] [place], [place] | | | | | [address] | | + + + + + | Ellie Vang | ECON | Unknown | | + + + + + Care Team Providers + +------+ + | Care Steam Box Operator Name | Role | Phone | + +------+ + | Fadi Goodrich DO | PCP | | + +------+ + Encounter Details +--------+ + + + + | Date | Type | Department | Care Team | Description | +--------+ + + + + | 03/04/ | Telephone | Digestive Health | Ion Pandey, | | | 2018 | | [place] [facility] [address] | MD [address] | | | | | [address] | [place], [place] | | | | | Mailcode: [place] | [address] | | | | | for Health and | | | | | | [facility] | | | | | | [facility] [place] | | | | | | [address] | | | | | | | [...] Rd | | | | | | [place], [place] | | | | | | [address] | | | | | | [phone] | | | | | | | | +--------+ + + + + | 06/24/ | Surgery | Surgery | Chilo | OPEN VENTRAL HERNIA | | 2018 | | | MD [address] | REPAIR WITH | | | | | [address] | BIOLOGICAL MESH | | | | | [place], [place] | | | | | | [address] | | | | | | [phone] | | | | | | | | +--------+ + + + + | 06/30/ | Office | Cardiology | Randell Franks, | | | 2018 | Visit | | MD [address] | | | | | | [place] | | | | | | [address] | | | | | | [phone] | | | | | | | | +--------+ + + + + documented as of this encounter Visit Diagnoses Not on filedocumented in this encounter"
--- OUTSIDE RECORDS SUMMARY | ~2019-06-01 | XMS | Encounter Summary ---
Demographics + + + | Address | [address] | | | [place] [address] | + + + | Home Phone [...] [place], [place] | | | | | [address] | | + + + + + | Ellie Vang | ECON | Unknown | | + + + + + Care Team Providers + +------+ + | Care Process Treater Name | Role | Phone | [...] | 2013 | Event | [facility] | [address] | | | | | Admitting Desk | Lesly Gutiérrez [facility] | | | | | [facility] on the | [place] [address] | | | | | floor [address] | [phone] | | | | | [address] | | | | | | [place], [place] | | | | | | [address] | | | +--------+ + + + [...] Rd | | | | | | [place], [place] | | | | | | [address] | | | | | | [phone] | | | | | | | [...] [place] | | | | | | [address] | | | | | | [phone] | | | | | | | | +--------+ + + + + | 06/30/ | Office | Cardiology | Randell Franks, | | | 2018 | Visit | | [address] | | | | | | [place], [place] | | | | | | [address] | | | | | | [phone] | | | | | | | [...]
--- OUTSIDE RECORDS SUMMARY | ~2019-06-01 | XMS | Encounter Summary ---
Demographics + + + | Address | [address] | | | [place] [address] | + + + | Home Phone [...] [place], [place] | | | | | [address] | | + + + + + | Ellie Vang | ECON | Unknown | | + + + + + Care Team Providers + +------+ + | Care Domestic Helper Name | Role | Phone | [...] | | 2018 | | Center at [facility] [address] | MD [address] | | | | | [address] | [place], [place] | | | | | Mailcode: [place] | [address] | | | | | [facility] and | [phone] | | | | | [place] [address] | | | | | | [place], [place] | | | | | | [address] | | | | | | [phone] | | | +--------+--------+ + + + [...] [place] | | | | | | [address] | | | | | | [phone] | | | | | | | | +--------+ + + + + | 06/24/ | Surgery | Surgery | Chilo, | OPEN VENTRAL HERNIA | | 2019 | | | MD [address] | REPAIR WITH | | | | | [address] | BIOLOGICAL MESH | | | | | [place] | | | | | | [address] | | | | | | [phone] | | | | | | | | +--------+ + + + + | 06/30/ | Office | Cardiology | Randell Franks, | | | 2019 | Visit | | [address] | | | | | | [place], [place] | | | | | | [address] | | | | | | [phone] | | | | | | | | +--------+ + + + + documented as of this encounter Visit Diagnoses Not on filedocumented in this encounter"
--- OUTSIDE RECORDS SUMMARY | ~2019-06-01 | XMS | Encounter Summary ---
Demographics + + + | Address | [address] | | | [place] [address] | + + + | Home Phone [...] [place], [place] | | | | | [address] | | + + + + + | Ellie Vang | ECON | Unknown | | + + + + + Care Team Providers + +------+ + | Care Infrastructure Software Engineer Name | Role | Phone [...] repair incarcerated | | 2012 | | [facility] | [address] [facility] | ventral hernia; | | | | Admitting Desk | [address] | possible bowel | | | | Located on the | [place], [place] | resection; | | | | floor [address] [facility] | [address] | | | | | [address] | [phone] | | | | | [place], [place] | | | | | | [address] | | | +--------+---------+ + + + [...] yuriy tral hernia. She was transferred from [place] for surgical evaluation of possible incarcer ated [...] Cipro. POD 5 she was discharged ho co, tolerating a diabetic diet. Having bowel function. [...] yuriy tral hernia. She was transferred from [place] for surgical evaluation of possible incarcer ated [...] Cipro. POD 5 she was discharged ho co, tolerating a diabetic diet. Having bowel function. [...] keeping you from eating and drinking, Call [phone]. It is important to stay hydrated! If [...] taking narcotic that contain Tylenol (acetaminophen) Example: [place], Lortab, Vicodin, hydrocodone/APAP, Percocet, Tylenol #3 PAIN MEDICATIONS are ONLY REFILLED during CLINIC APPOINTMENTS. Please call [phone] to schedule an appointment. Your Follow-Up Plan Follow up with ROBIN MEJIA in 2 weeks. Contact information: [address] [facility] [address] Vitals on discharge: Ht 154.9 cm (5' [...] the original. [facility] DEPARTMENT OF SURGERY EMERGENCY GENERAL SURGERY Division [...] without erythema and no infecti on noted. [place] intact : good urine output and Patient [...] clinic - [place] [address] pager number [place] [phone] [facility] [address] Aminta Goodwin Md - 11/11/2012 7:40 AM PDT [facility] DEPARTMENT OF SURGERY EMERGENCY GENERAL SURGERY Division of Trauma and Critical Care Attending Physician: Andie Brian MD Progress Note Note Date: 11/11/2012 Admission Date: 11/06/2012 DYLAN ROMERO, [id number] Hospital Day #5 INTERVAL EVENTS none acute [...] mg, Rectal, DAILY PRN, Aminta Wilson MD ezctcwogef-xwtezskulqbkx-vmmqysbo (aka FIORICET) 50-325-40 mg 1 Tab, 1 [...] Jayne Ponce MD, 1 mg at 11/10/12801 jjcpfiumvb-jiuaouzuiodks-gmzehhlt (aka FIORICET) 50-325-40 mg 1 Tab, 1 [...] in preservative free NaCl 0.9% 50 mL VISITOR SERVICES INFORMATION ASSISTANT infusion, , Intravenous, KIESHA NUOUS, Aracely Flores [...] diet -add bowel regimen Acute pain -HM VISITOR SERVICES INFORMATION ASSISTANT, tylenol -convert to oral pain medication once [...] Fluids: LR 125ml/hr Feeding: NPO Analgesia: Dilaudid VISITOR SERVICES INFORMATION ASSISTANT Sedation: not indicated Thromboprophylaxis: enoxaparin Head of [...] Ponce MD, 1 mg at 11/09/12 0855 vusjjyldnp-hpnsxyvtddunp-hkkoyyby (aka FIORICET) 50-325-40 mg 1 Tab, 1 [...] in preservative free NaCl 0.9% 50 mL VISITOR SERVICES INFORMATION ASSISTANT infusion, , Intravenous, KIESHA NUOUS, Aracely Flores [...] drainage <30ml for 24hrs Acute pain -HM VISITOR SERVICES INFORMATION ASSISTANT, tylenol Diabetes: -insulin gtt not started due [...] Fluids: LR 125ml/hr Feeding: NPO Analgesia: Dilaudid VISITOR SERVICES INFORMATION ASSISTANT Sedation: not indicated Thromboprophylaxis: enoxaparin Head of bed: > 30 Ulcer prophylaxis: pepcid Glycemic control: adequate Activity/PT/OT: Ongoing Yogurt: ABX on Probiotics:yes AMINTA WILSON MD General Surgery, R1 aleb Walker S, N P - 11/08/2012 8:49 AM PDT [facility] DEPARTMENT OF SURGERY EMERGENCY GENERAL SURGERY Division of Trauma and Critical Care Attending Physician: Andie Brian MD Progress Note Note Date: 11/08/2012 Admission Date: 11/06/2012 DYLAN ROMERO, [id number] Hospital Day #2 INTERVAL EVENTS NO SUBJECTIVE Pain well controlled; has headache attributed to dilaudid VISITOR SERVICES INFORMATION ASSISTANT Tylenol did not help. Flatus: YES Tolerating [...] Girma e RLQ with seroang fluid. : Uriz catheter in place and good urine output [...] trials today. -DC ruiz Acute pain -HM VISITOR SERVICES INFORMATION ASSISTANT, tylenol Diabetes: -insulin gtt not started due [...] Fluids: LR 125ml/hr Feeding: NPO Analgesia: Dilaudid VISITOR SERVICES INFORMATION ASSISTANT Sedation: not indicated Thromboprophylaxis: enoxaparin Head of bed: > 30 Ulcer prophylaxis: pepcid Glycemic control: adequate Activity/PT/OT: Ongoing Yogurt: ABX on Probiotics: No KALEB WALKER NP [facility] [address] [place] [facility] elvin Stephens MD - 11/07/2012 9:51 PM [...] 7.33* PCO2 49* PO2 113* HCO3 25 [id number] 26 D0RDYJQY 98.3* D2RBKEYFT -- FIO2 60 ABGEXCESS -0.9 Assessment, Medical Decision Making and Plan 1. Incarcerated hernia, now s/p repair and panniculectomy -Binder, pain control, minimize nausea and coughing PRN. -NG clamping trials today. 2. Acute pain -HM VISITOR SERVICES INFORMATION ASSISTANT, tylenol 3. Diabetes: -insulin gtt 4. Morbid [...] Dione Grimes MD R-2, General Surgery Pager: [phone] [facility] [place] Department of Surgery Trauma ICU Team Pager (24hrs/day): [phone] I was present with the resident during the history and exam. I discussed the case with the resident and agree with the findings and plan as documented in the resident s note. KELVIN STEPHENS MD [facility] [address] [facility] [place] [address] [id number] Onur Graves MD - 11/07/2012 2:37 AM [...] mg 20 mg Intravenous Q12H (Scheduled) Danny sliva MD 200 mL/hr at 11/06/122011 20 mg [...] in preservative free NaCl 0.9% 50 mL VISITOR SERVICES INFORMATION ASSISTANT infusion Intravenous CON TINUOUS Aracely Flores, DO [...] POD#1 s/p primary repair. 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, prn tylenol S: prn benzos as she is at home T: will start prophylactic lovenox today H: HOB >30 degrees U: pepcid G: insulin gtt ONUR ALLEN MD, PGY3 [place] [address] [facility] [address] 5c[address]/uhs8t [place] [address] Onelia Shrestha MD - 11/06/2012 8:41 AM PDT [facility] DEPARTMENT OF SURGERY Division of Trauma and Critical Care Emergency General Surgery / Acute Care Surgery Attending Physician: Andie Brian MD Note Date: 11/06/2012 Admission Date: 11/06/2012 DYLAN ROMERO, [id number] Hospital Day #0 OVERNIGHT EVENTS: anxious SUBJECTIVE: [...] wwp LABS: reviewed and are available in [facility] (if new data) IMAGING: VASCULAR: IMPRESSION: Dylan [...] [place] | | | | | | [address] | | | | | | [phone] | | | | | | | | +--------+ + + + + | 06/24/ | Surgery | Surgery | Chilo, | OPEN VENTRAL HERNIA | | 2018 | | | MD Jorje [address] | REPAIR WITH | | | | | [address] | BIOLOGICAL MESH | | | | | [place], [place] | | | | | | [address] | | | | | | [phone] | | | | | | | | +--------+ + + + + | 06/30/ | Office | Cardiology | Randell Franks, | | | 2018 | Visit | | [address] | | | | | | Ave [place], [place] | | | | | | [address] | | | | | | [phone] | | | | | | | [...] Mae | | | | | | [place] | | | | + + + [...] AMES | [address] | [place], [place] | | | [facility] | [address] | [address] | | | TESTS | | | [...] MARQUAM | [address] | [place], [place] | | | [facility] | [address] | [address] | | | TESTS | | | [...] | [address] | [place] [address] | | | SERVICES, CORE | PARK [...] | [address] | [place] [address] | | | LYDIA RANGEL | PARK [...] MEDICAL CENTER | [address] | [place] [address] | | | SERVICES, CORE | CLARENCE [...] MARQUAM | [address] | [place], [place] | | | [facility] | [address] | [address] | | | TESTS | | | [...] MARQUAM | [address] | [place], [place] | | | [facility] | [address] | [address] | | | TESTS | | | [...] + + + | NKECHI AMES | [address] | [place], [place] | | | [facility] | [address] | [address] | | | TESTS | | | [...] MARQUAM | [address] | [place], [place] | | | [facility] | [address] | [address] | | | TESTS | | | [...] - KWAK[facility] | [address] | [place], [place] | | | [facility] | [address] | [address] | | | TESTS | | | [...] [facility] | [address] | [place] [address] | | | SERVICES, CORE | PARK [...] + + | [facility] Weesh | [address] | [place] [address] | | | CLAIRE, LYDIA | CLARENCE [...] [facility] | [address] | [place] [address] | | | LYDIA RANGEL | CLARENCE [...] | 60 - 99 mg/dL | [facility] - | | | GLUCOSE, | | [...] YAKOVAM | [address] | [place], [place] | | | [facility] | [address] | [address] | | | TESTS | | | [...] AMES | [address] | [place], [place] | | | [facility] | [facility] | [address] | | | TESTS | | | [...] [place] | | | [facility] | [address] | [address] | | | TESTS | | | [...] | 60 - 99 mg/dL | [facility] - | | | GLUCOSE, | | [...] MARQUAM | [address] | [place], [place] | | | [facility] | [facility] | [address] | | | TESTS | | | [...] AMES | [address] | [place], [place] | | | [facility] | [address] | [address] | | | TESTS | | | [...] + | [facility] | [address] | [place] [address] | | | SERVICES, CORE | CLARENCE [...] MDRD equation recommended by the | [facility] | | National Kidney Disease Education Program. [...] [facility] | [address] | [place] [address] | | | SERVICES, CORE | PARK [...] MEDICAL CENTER | [address] | [place] [address] | | | SERVICES, CORE | CLARENCE [...] | [facility] | [facility] | [address] | | | TESTS | | | [...] | [facility] | [facility] | [address] | | | TESTS | | | | + + + + + CAPILLARY BLOOD GLUCOSE (NO CHG), POC (11/09/2012 12:19 PM PDT) + +-------+ + + + | Component | Value | Ref Range | Performed | Pathologist | | | | | At | Signature | + +-------+ + + + | BLOOD | 81 | 60 - 99 mg/dL | [facility] - | | | GLUCOSE, | | [...] + + + | NKECHI AMES | [address] | [place], [place] | | | [facility] | [address] | [address] | | | TESTS | | | [...] | | | Final CULTURE | | [place] | | | | RESULT:>100,000 cfu/ml | [...] + | [facility] | [address] | [place] [address] | | | [facility] | | | | + + [...] MEDICAL CENTER | [address] | [place] [address] | | | SERVICES, CORE | CLARENCE [...] | [address] | [place] [address] | | | SERVICES, CORE | PARK [...] - KWAKU | [address] | [place], [place] | | | [facility] | [address] | [address] | | | TESTS | | | [...] + | [facility] | [address] | [place] [address] | | | LYDIA RANGEL | CLARENCE [...] [facility] | [address] | [place] [address] | | | SERVICES, LYDIA | PARK [...] | [address] | [place] [address] | | | LYDIA RANGEL | CLARENCE [...] | 60 - 99 mg/dL | [facility] | | | GLUCOSE, | | [...] MARQUAM | [address] | [place], [place] | | | [facility] | [facility] | [address] | | | TESTS | | | [...] AMES | [address] | [place], [place] | | | [facility] | [address] | [address] | | | TESTS | | | [...] MARQUAM | [address] | [place], [place] | | | [facility] | [address] | [address] | | | TESTS | | | [...] | [address] | [place] [address] | | | SERVICES, CORE | PARK [...] | [address] | [place] [address] | | | SERVICES, CORE | PARK [...] MEDICAL CENTER | [address] | [place] [address] | | | SERVICES, LYDIA | CLARENCE [...] MARQUAM | [address] | [place], [place] | | | [facility] | [facility] | [address] | | | TESTS | | | [...] MARQUAM | [address] | [place], [place] | | | [facility] | [facility] | [address] | | | TESTS | | | [...] AMES | [address] | [place], [place] | | | [facility] | [address] | [address] | | | TESTS | | | [...] MEDICAL CENTER | [address] | [place] [address] | | | SERVICES, CORE | CLARENCE [...] | [address] | [place] [address] | | | SERVICES, CORE | PARK [...] MEDICAL CENTER | [address] | [place] [address] | | | SERVICES, CORE | [address] | | | + + + + + X-RAY PORTABLE CHEST 1 VIEW (11/06/2012 4:46 PM PDT) + + + + + + | Component | Value | Ref Range | Performed | Pathologist | | | | | At | Signature | + + + + + + | X-RAY | STUDY: [place] CHEST 1 VIEW | | | | | PORTABLE | 11/06/12 16:46:00 | | | | | CHEST 1 | INDICATION: Right upper | | | | | VIEW | lobe opacity. | | | | | | COMPARISON: Earlier same | | | | | | day a STUDY: [place] CHEST 1 | | | | | [...] + + + | X-RAY | STUDY: [place] CHEST 1 VIEW | | | | [...] 270 | 150 - 400 K/cu | [facility] | | | COUNT | | mm [...] [facility] | [address] | [place] [address] | | | SERVICES, CORE | PARK [...] LABORATORY | [address] | [place] [address] | | | SERVICES, CORE | PARK [...] [facility] | [address] | [place] [address] | | | SERVICES, CORE | CLARENCE [...] | 60 - 99 mg/dL | [facility] - | | | GLUCOSE, | | [...] AMES | [address] | [place], [place] | | | [facility] | [address] | [address] | | | TESTS | | | [...] AMES | [address] | [place], [place] | | | [facility] | [address] | [address] | | | TESTS | | | [...] MARQUAM | [address] | [place], [place] | | | [facility] | [address] | [address] | | | TESTS | | | [...] | [facility] | [facility] | [address] | | | TESTS | | | [...] AMES | [address] | [place], [place] | | | [facility] | [address] | [address] | | | TESTS | | | [...] MARPATAM | [address] | [place], [place] | | | [facility] | [facility] | [address] | | | TESTS | | | [...] | [facility] | [facility] | [address] | | | TESTS | | | [...] AMES | [address] | [place], [place] | | | [facility] | [address] | [address] | | | TESTS | | | [...] YAKOVAM | [address] | [place], [place] | | | [facility] | [address] | [address] | | | TESTS | | | [...] MARQUAM | [address] | [place], [place] | | | [facility] | [address] | [address] | | | TESTS | | | [...] AMES | [address] | [place], [place] | | | [facility] | [address] | [address] | | | TESTS | | | [...] [facility] | [address] | [place] [address] | | | CLAIRE | CLARENCE BONNER [...] | 60 - 99 mg/dL | [facility] - | | | GLUCOSE, | | [...] YAKOVAM | [address] | [place], [place] | | | [facility] | [address] | [address] | | | TESTS | | | [...] | [address] | [place] [address] | | | SERVICES, | [address] [...] | [address] | [place] [address] | | | SERVICES, | [address] [...] MEDICAL CENTER | [address] | [place] [address] | | | SERVICES, CORE | CLARENCE [...] [facility] | [address] | [place] [address] | | | SERVICES, LYDIA | PARK [...] | [address] | [place] [address] | | | SERVICES, CORE | PARK [...] [facility] | [address] | [place] [address] | | | SERVICES, CORE | PARK [...] MDRD equation recommended by the | [facility] | | National Kidney Disease Education Program. [...] [facility] | [address] | [place] [address] | | | LYDIA RANGEL | CLARENCE [...] view image for the detailed interpretation from [employer] results. | CARDIOLOGY | + + + + + + + + | Performing | Address | City/State/Zipcode | Phone Number | | Organization | | | | + + + + + | [facility] | [address] | [place], [place] | | | CARDIOLOGY | [address] | [address] | | + + + + + [...] | [address] | [place] [address] | | | SERVICES, CORE | PARK [...] | [address] | [place] [address] | | | SERVICES, LYDIA | CLARENCE BONNER | | | + + + + + documented in this encounter Visit Diagnoses + + | Diagnosis | + + | Incarcerated ventral hernia Ventral hernia, unspecified, with obstruction | + + documented in this encounter
--- OUTSIDE RECORDS SUMMARY | ~2019-06-01 | XMS | Encounter Summary ---
Demographics + + + | Address | [address] | | | [place] [address] | + + + | Home Phone [...] [place], [place] | | | | | [address] | | + + + + + | Ellie Vang | ECON | Unknown | | + + + + + Care Team Providers + +------+ + | Care Nurse Practitioner Physicians Assistant Name | Role | Phone | [...] | | 2017 | | Preventive at [facility] | MD [address] | Request ([address] | | | | [address] | [address] [facility] [place] | mg) | | | | Mailcode: Mihaela | [address] | | | | | [facility] | [phone] | | | | | and Erick, | | | | | | [address] | | | | | | [place], [place] | | | | | | [address] | | | | | | [phone] | | | +--------+ + + + [...] Rd | | | | | | [place] | | | | | | [address] | | | | | | [phone] | | | | | | | | +--------+ + + + + | 06/24/ | Surgery | Surgery | Chilo, | OPEN VENTRAL HERNIA | | 2018 | | | MD [address] | REPAIR WITH | | | | | [address] | BIOLOGICAL MESH | | | | | [place], [place] | | | | | | [address] | | | | | | [phone] | | | | | | | | +--------+ + + + + | 06/30/ | Office | Cardiology | Randell Franks, | | | 2019 | Visit | | MD [address] | | | | | | [place], [place] | | | | | | [address] | | | | | | [phone] | | | | | | | | +--------+ + + + + documented as of this encounter Visit Diagnoses Not on filedocumented in this encounter"
--- OUTSIDE RECORDS SUMMARY | ~2019-06-01 | XMS | Encounter Summary ---
Demographics + + + | Address | [address] | | | [place] [address] | + + + | Home Phone [...] [place], [place] | | | | | [address] | | + + + + + | Ellie Vang | ECON | Unknown | | + + + + + Care Team Providers + +------+ + | Care Ballast Inspector Name | Role | Phone | [...] | 2015 | Review | Center at [facility] [address] | MD | Decision | | | | [address] | | | | | | Mailcode: [place] | | | | | | [facility] and | | | | | | [facility] [address] | | | | | | [place], [place] | | | | | | [address] | | | | | | [phone] | | | +--------+ + + + [...] Rd | | | | | | [place], [place] | | | | | | [address] | | | | | | [phone] | | | | | | | | +--------+ + + + + | 06/24/ | Surgery | Surgery | Chilo | OPEN VENTRAL HERNIA | | 2018 | | | MD Demond [address] | REPAIR WITH | | | | | [address] | BIOLOGICAL MESH | | | | | [place], [place] | | | | | | [address] | | | | | | [phone] | | | | | | | | +--------+ + + + + | 06/30/ | Office | Cardiology | Randell Franks, | | | 2018 | Visit | | MD [address] | | | | | | [place] | | | | | | [address] | | | | | | [phone] | | | | | | | | +--------+ + + + + documented as of this encounter Visit Diagnoses Not on filedocumented in this encounter"
--- OUTSIDE RECORDS SUMMARY | ~2019-06-01 | XMS | Encounter Summary ---
Demographics + + + | Address | [address] | | | [place] [address] | + + + | Home Phone [...] [place], [place] | | | | | [address] | | + + + + + | Ellie Vang | ECON | Unknown | | + + + + + Care Team Providers + +------+ + | Care Practice Managers Name | Role | Phone | + +------+ + | Fadi Goodrich DO | PCP | | + +------+ + Encounter Details +--------+ + + + + | Date | Type | Department | Care Team | Description | +--------+ + + + + | 12/05/ | Abstract | Cardiology | Randell Franks, | | | 2016 | | Preventive at [facility] | MD [address] | | | | | [address] | Ave [place], [place] | | | | | Mailcode: CH9A | [address] | | | | | [facility] | [phone] | | | | | and Healing, | | | | | | [address] | | | | | | [place], [place] | | | | | | [address] | | | | | | [phone] | | | +--------+ + + + [...] Rd | | | | | | [place], [place] | | | | | | [address] | | | | | | [phone] | | | | | | | | +--------+ + + + + | 06/24/ | Surgery | Surgery | Chilo, | OPEN VENTRAL HERNIA | | 2018 | | | MD Jorje [address] | REPAIR WITH | | | | | [address] | BIOLOGICAL MESH | | | | | [place], [place] | | | | | | [address] | | | | | | [phone] | | | | | | | | +--------+ + + + + | 06/30/ | Office | Cardiology | Randell Franks, | | | 2019 | Visit | | MD [address] | | | | | | [address] [place], [place] | | | | | | [address] | | | | | | [phone] | | | | | | | | +--------+ + + + + documented as of this encounter Visit Diagnoses Not on filedocumented in this encounter"
--- OUTSIDE RECORDS SUMMARY | ~2019-06-01 | XMS | Encounter Summary ---
Demographics + + + | Address | [address] | | | [place] [address] | + + + | Home Phone [...] [place], [place] | | | | | [address] | | + + + + + | Ellie Vang | ECON | Unknown | | + + + + + Care Team Providers + +------+ + | Care Spinning And Winding Supervisor Name | Role | Phone | [...] | hypertension; Right | | | | [place], [place] | | heart failure (HCC); | | | | [address] | | Type 2 diabetes | | | | [phone] | | mellitus without | | | [...] [place] | | | | | | [address] | | | | | | [phone] | | | | | | | | +--------+ + + + + | 06/24/ | Surgery | Surgery | Chilo, | OPEN VENTRAL HERNIA | | 2018 | | | MD Jorje [address] | REPAIR WITH | | | | | [address] | BIOLOGICAL MESH | | | | | [place], [place] | | | | | | [address] | | | | | | [phone] | | | | | | | | +--------+ + + + + | 06/30/ | Office | Cardiology | Randell Franks, | | | 2018 | Visit | | MD [address] | | | | | | Ave [place], [place] | | | | | | [address] | | | | | | [phone] | | | | | | | [...] | | PDT | heart failure ([facility]) | results section. | | [...] | | | use of insulin ([facility]) | | + +--------+ + + + | TSH | Routin | 11/28/2016 | Essential | Results for this | | | e | 10:53 AM | hypertension Right | procedure are in the | | | | PDT | heart failure ([facility]) | results section. | | [...] | | PDT | heart failure ([facility]) | results section. | | [...] | [facility] | [id number] | [place] [address] | | | CLAIRE, LYDIA | CLARENCE [...] [facility] | [address] | [place], [place] | | | SERVICES, LIPID | [address] | [address] | | + + + + + [...] [facility] | [address] | [place] [address] | | | SERVICES, SPECIAL | PARK [...] | | | LABORATORY | | | [facility] | | | SERVICES, | | [...] [facility] | [address] | [place] [address] | | | SERVICES, CORE | PARK [...]
--- OUTSIDE RECORDS SUMMARY | ~2019-06-01 | XMS | Encounter Summary ---
Demographics + + + | Address | [address] | | | [place] [address] | + + + | Home Phone [...] [place], [place] | | | | | [address] | | + + + + + | Ellie Vang | ECON | Unknown | | + + + + + Care Team Providers + +------+ + | Care Director Workers Compensation Name | Role | Phone | + [...] Mailcode:OP14B | | | | | | [facility] | | | | | | [place], [place] | | | | | | [address] | | | | | | [phone] | | | +--------+ + + + [...] Rd | | | | | | [facility] [place] | | | | | | [address] | | | | | | [phone] | | | | | | | | +--------+ + + + + | 06/24/ | Surgery | Surgery | Chilo | OPEN VENTRAL HERNIA | | 2018 | | | MD Demond Recinos | REPAIR WITH | | | | | [address] | BIOLOGICAL MESH | | | | | [place], [place] | | | | | | [address] | | | | | | [phone] | | | | | | | | +--------+ + + + + | 06/30/ | Office | Cardiology | Randell Franks, | | | 2019 | Visit | | [address] | | | | | | [place], [place] | | | | | | [address] | | | | | | [phone] | | | | | | | [...] | | | | | | | [place], [place] | | | | | | [address] | | | | | | | | | | | | Nilda Velazquez | | | | | | | | | | | | Dr. Trell Collazo | | | | | | | | | | | | Dr. Aiem Branch | | | | | | [...] | | | | artery. A 5.5 Urdu | | | | | | Ozzy [...]
--- OUTSIDE RECORDS SUMMARY | ~2019-06-01 | XMS | Encounter Summary ---
Demographics + + + | Address | [address] | | | [place] [address] | + + + | Home Phone [...] [place], [place] | | | | | [address] | | + + + + + | Ellie Vang | ECON | Unknown | | + + + + + Care Team Providers + +------+ + | Care Insolvency Consultant Name | Role | Phone | [...] | [facility] | | | with TRAFFIC POLICE OFFICER | | hypertension | [address] | [address] | | | | | Right | [address] | [address] | | | | | heart | [place], [place] | Mailcode: | | | | | failure | [address] | Center for | | | | | ([facility]) Type | Phone: | Health and | | | | | 2 diabetes | [phone] | Healing, | | | | | mellitus | Fax: | Building 2 | | | | | without | [phone] | [place], [place] | | | | | complication | | [address] | | | | | , with | | Phone: | | | | | long-term | | | | | | | current use | | Fax: | | | | | of insulin | | [phone] | | | | | ([facility]) [...] 2019 | Visit | Center at [facility] 0215 | INTEGRATED CIRCUITS INSPECTOR [address] | gastric bypass | | | | [address] | Ave [place], [place] | (Primary Dx); | | | | Mailcode: [place] | [address] | Intertriginous | | | | for Health and | [phone] | candidiasis | | | | [facility] 2 | | | | | | [place], [place] | | | | | | [address] | | | | | | [phone] | | | +--------+---------+ + + + [...] daughter and son-in-law Her boyfriend lives in [place] HFpEF, DM2, HTN, Sleep Apnea (unable to [...] program here and refer her to our orientation and mobility specialist who also has expertise in physical [...] tongue once daily., Disp: , Rfl: CALCIUM CRB&JMF-M3-LZA17-GENIS ORAL, Take 2 tablets by mouth two [...] n/a -HTN: still on medications -Diabetes: seeing shoe dyer in December, hopes to eliminate Metformin then as recent A1c was normal Return to bariatric clinic in 6 months for 1 year follow up visit See your primary care provider for adjusting any other medications. Call if any abdominal pain, n/v/d or other issues. Pt agrees to plan and will call and/or send [employer] message if any issues. Start time 2:45, end time 3:10. I spent a total of 25 minutes face to face with this patie nt. Over 50% of visit was in counseling. HILDA Davalos Bariatric Surgery Nurse Practitioner [facility] | CH[address] | [place] | [address] | documented in this encounter Plan of [...] [place] | | | | | | [address] | | | | | | [phone] | | | | | | | | +--------+ + + + + | 06/24/ | Surgery | Surgery | Chilo, | OPEN VENTRAL HERNIA | | 2019 | | | MD Richi [address] | REPAIR WITH | | | | | [address] | BIOLOGICAL MESH | | | | | [place], [place] | | | | | | [address] | | | | | | [phone] | | | | | | | | +--------+ + + + + | 06/30/ | Office | Cardiology | Randell Franks, | | | 2019 | Visit | | [address] | | | | | | [place], [place] | | | | | | [address] | | | | | | [phone] | | | | | | | [...] [facility] | [address] | [place] [address] | | | SERVICES, CORE | PARK [...] + + + | [facility] | [address] | [place] [address] | | | SERVICES, [facility] | [address] | [...] INTFC | | | | determined by 800APP | | | | | | Laboratories. See | | | | | | Compliance Statement B: | | | | | | [employer].NowledgeData/CSPerformed | | | | | | by [employer],[address] | | | | | | Liliana Martinez, [facility],[place] | | | | | | [address] | | | | | | [phone].[facility] [employer]. | | | | | | [...] [facility] | [address] | [place], [place] | | | UNIV PTH - INTFC | | [address] | | + + + + + [...] | | | | | determined by 800APP | | | | | | Laboratories. See | | | | | | Compliance Statement B: | | | | | | [employer].NowledgeData/CSPerformed | | | | | | by [employer],[address] | | | | | | [place] [facility] [place] | | | | | | [address] | | | | | | [phone].[employer] XM[employer]. | | | | | | mckay-dee [...] + + | [facility] | [address] | [place], [place] | | | UNIV PTH - INTFC | | [address] | | + + + + + [...] [facility] | | | (YEN NOAH) | [facility],500 | | REG UNIV | | | SERUM | Liliana Martinez, [facility],[place] | | PTH - INTFC | | | | [address] | | | | | | [phone].aruplab. | | | | | | Ismael [...] B: | | | | | | Everyone Counts/CS | | | | + + + + + + + + | Specimen | + + | Blood - Blood | | (substance) | + + + + + + + | Performing | Address | City/State/Zipcode | Phone Number | | Organization | | | | + + + + + | [facility] | [address] | [place], [place] | | | UNIV PTH - INTFC | | [address] | | + + + + + [...] [facility] | [address] | [place] [address] | | | SERVICES, CORE | PARK [...] | [facility] | [address] | [place] [address] | | | SERVICES, CORE | CLARENCE [...] INTERPRETIVE | 70 - 180 nmol/L | [facility] | | | WHOLE | INFORMATION: [...] | | | | | determined by 800APP | | | | | | Laboratories. See | | | | | | Compliance Statement B: | | | | | | [employer].NowledgeData/CSPerformed | | | | | | by [employer],[address] | | | | | | [place], [place] | | | | | | [address] | | | | | | [phone].[employer]. | | | | | | mckay-dee [...] [facility] | [address] | [place], [place] | | | UNIV PTH - INTFC | | [address] | | + + + + + [...] + + | [facility] | [address] | [place] [address] | | | SERVICES, CORE | PARK [...] | | | | | determined by 800APP | | | | | | Laboratories. See | | | | | | Compliance Statement B: | | | | | | [employer]/CSPerformed | | | | | | by [employer],[address] | | | | | | [place] [facility] [place] | | | | | | [address] | | | | | | [phone].[employer]. | | | | | | NowledgeDataIsmael MD, | | | | | | [...] [facility] | [address] | [place], [place] | | | UNIV PTH - INTFC | | [address] | | + + + + + [...] [facility] | [address] | [place] [address] | | | SERVICES, CORE | PARK [...] | + + + + + | [facility] | [address] | [place] [address] | | | SERVICES, SPECIAL | CLARENCE [...] | + + + + + | [facility] | [address] | [place] [address] | | | SERVICES, CORE | CLARENCE [...] at | | | | | | [email or web address] | | | | | | med by [facility] | | | | | | [facility],[address] [place] [address] | | | | | | [place] [address] | | | | | | [phone].[facility]. | | | | | | mckay-dee [...] [facility] | [address] | [place], [place] | | | UNIV PTH - INTFC | | [address] | | + + + + + [...] | | | LABORATORY | | | [facility] | | | SERVICES, | | | [...] + + | [facility] | [address] | [place] [address] | | | SERVICES, CORE | CLARENCE [...]
--- OUTSIDE RECORDS SUMMARY | ~2019-06-01 | XMS | Encounter Summary ---
Demographics + + + | Address | [address] | | | [place] [address] | + + + | Home Phone [...] [place], [place] | | | | | [address] | | + + + + + | Ellie Vang | ECON | Unknown | | + + + + + Care Team Providers + +------+ + | Care Sawmill Supervisor Name | Role | Phone | [...] [address] | | | | | [place], [place] | [address] | | | 03/[birth year]/ | | [address] | [place], [place] | | | 2014 | | [phone] | [address] | | | | | | [phone] | | | | | | | [...] port site who was transferre d to [facility] for concern of an incarcerated [...] mouth once daily. , Historical Med CALCIUM CRB&EKF-S6-JZU01-GENIS ORAL Take 1 tablet by mouth two [...] 10:40 AM Randell Franks Cardiology Preventive at [facility] [phone] Cardiology 04/09/2015 1:00 PM Egs Ppv Tra Trauma Emergency General Surgery at [facility] [phone] [facility] Outstanding labs/studies: None Discharging Physician: GABO LANGSTON MD Attending Physician: Dr. Cantu PCP: Fadi Goodrich DO Signed: GABO LANGSTON MD Pager #[phone] Surgical Negotiations Director [facility] Associated attestation - Tye Carrillo DO - 03/12/2015 9:12 AM PDTAttending: I discussed this patient with the resident and agree with the assessment and plan as outlin ed in this note and participated in the planning of care. Tye Carrillo DO, MBA, FACS Division of Trauma, Critical Care & Acute Care Surgery [facility] [phone] documented in this encounter Medications at Time of Discharge + + + +---------+--------+ + | Medication | Sig | Dispensed | Refills | Start | End Date | | | | | | Date | | + + + +---------+--------+ + | CALCIUM | Take 2 tablets by | | 0 | | | | CRB&XQG-J6-LBD23-GEN | mouth two times | | | [...] might be differ ent from the original. [facility] DEPARTMENT OF SURGERY EMERGENCY GENERAL SURGERY Division [...] obesity with known ventral hernias transferred to [facility] for surgical managem ent of ventral hernia, now s/p repair. Post surgical pain: -patient ready for d/c, discussed f/u. Patient lives far away and has other appointments at [facility]. Will attempt to coordinate appointments. Discharge Plan: D/c today GABO LANGSTON MD Pager #[phone] Surgical Negotiations Director [facility] Nataliia Mendez Salomón rose R - [...] and kn own ventral hernias transferred to [facility] for surgical treatment of suspected [...] obesity with known ventral hernias transferred to [facility] for surgical managem ent of [...] will be robel ing her home to [place], [place]. CALVIN ROMERO MD PGY-1 Anesthesiology Pager: [phone] [facility] A [address] [place] [address] Karthik Oneill MD - 03/02/2015 8:26 AM [id number] Calvin William Md - 03/01/2015 5:34 PM PDT Brief Post Operative Note: 40 F PMH morbid obesity (BMI 71 today), DM2, depression, GERD, h/o stroke at age 18, and kn own ventral hernias transferred to [facility] for surgical treatment of incarcerated [...] control CALVIN ROMERO MD PGY-1 Anesthesiology Pager: [phone] signed by Calvin Romero Md at 03/01/2015 [...] Rd | | | | | | [place], [place] | | | | | | [address] | | | | | | [phone] | | | | | | | | +--------+ + + + + | 06/24/ | Surgery | Surgery | Chilo, | OPEN VENTRAL HERNIA | | 2018 | | | MD Demond Rec[address] | REPAIR WITH | | | | | [address] | BIOLOGICAL MESH | | | | | [place], [place] | | | | | | [address] | | | | | | [phone] | | | | | | | | +--------+ + + + + | 06/30/ | Office | Cardiology | Randell Franks, | | | 2018 | Visit | | MD [address] | | | | | | [place], [place] | | | | | | [address] | | | | | | [phone] | | | | | | | [...] | | Attending Surgeon: Shahid Cantu MD Instrumentation Fitter(s): Howie Angeles MD, R5 | | Karthik [...] 03/02/2015 08:25:39DT: 03/02/2015 09:15:57Job #: | | [id number] | | | |Dr. Chris Cantu was present and scrubbed for the entirety of the case. | | | | | | | |Karthik Gonzalez MD | | | |Pursuant to federal Medicare and Medicaid regulations I was present for the entire procedur e. | | | | | | | |Shahid Cantu MD | |Specimen Transporter | |Trauma, Critical Care & Acute Care Surgery | | | | | | | |Shahid Cantu MD | |TBK/MODL | | | | | | /[id number] | + ---+ CAPILLARY BLOOD GLUCOSE (NO [...] YAKOVAM | [address] | [place], [place] | | | JUSTINE DAWN OF JAKY | [facility] | [address] | | | TESTS | | | [...] AMES | [address] | [place], [place] | | | L[place]PE[place] POINT OF CARE | [address] | [address] | | | TESTS | | | [...] + | Performing | Address | City/State/[facility] | Phone Number | | Organization | | | | + + + + + | [facility] | [address] | [place], [place] | | | JUSTINE DAWN OF JAKY | [facility] | [address] | | | TESTS | | | [...] YAKOVAM | [address] | [place], [place] | | | JUSTINE DAWN OF JAKY | [facility] | [address] | | | TESTS | | | [...] AMES | [address] | [place], [place] | | | L[place] POINT OF CARE | [address] | [address] | | | TESTS | | | [...] KWAKU | [address] | [place], [place] | | | ABRAHAN DAWN | [facility] | [address] | | | TESTS | | | [...] [facility] | [address] | [place] [address] | | | SERVICES, CORE | CLARENCE [...] CENTER LABORATORY | [address] | [place] [address] | | | SERVICES, CORE | CLARENCE [...] AMES | [address] | [place], [place] | | | JUSTINE DAWN OF CARE | [address] | [address] | | | TESTS | | | [...] MARQUAM | [address] | [place], [place] | | | JUSTINE DAWN OF CARE | [address] | [address] | | | TESTS | | | [...] MARQUAM | [address] | [place], [place] | | | JUSTINE DAWN OF CARE | [address] | [address] | | | TESTS | | | [...] AMES | [address] | [place], [place] | | | JUSTINE DAWN OF CARE | [address] | [address] | | | TESTS | | | [...] MARQUAM | [address] | [place], [place] | | | JUSTINE DAWN OF CARE | [address] | [address] | | | TESTS | | | [...] + | [facility] | [address] [facility] | [place] [address] | | | SERVICES, CORE | CLARENCE [...] MARQUAM | [address] | [place], [place] | | | JUSTINE DAWN OF JAKY | [address] | [address] | | | TESTS | | | [...] 8:32 | | | | | on [facility] 03/01/15 at 0900, Until | | [...] injection 1 dose, | | | Starting [facility] 03/01/15 at 1215, | | | Until [facility] 03/01/15 at 1216 | | + +---+ | | | + +---+ + +-------+ +-------+---+---+ | FLUoxetine (PROZAC) capsule 40 | Given | 03/03/20 | 40 mg | | | | mg 40 mg, oral, DAILY, First | | 15 8:32 | | | | | dose on [facility] 03/01/15 at 0900, Until | | [...] | | | | Starting [facility] 03/01/15 at 1056, | | | | | | | Until [facility] 03/01/15 at 1436, | | | [...] mL/hr | mL/hr | | | Starting [facility] 03/01/15 at 0045, | | AM [...] | | | | First dose on [facility] 03/01/15 at 0900, | | AM [...] | | | | | dose on [facility] 03/01/15 at 0900, Until | | [...] | | | | | dose on [facility] 03/01/15 at 0900, Until | | [...]
--- OUTSIDE RECORDS SUMMARY | ~2019-06-01 | XMS | Encounter Summary ---
Demographics + + + | Address | [address] | | | [place] [address] | + + + | Home Phone [...] [place], [place] | | | | | [address] | | + + + + + | Ellie Vang | ECON | Unknown | | + + + + + Care Team Providers + +------+ + | Care Intensive Care Medicine Specialist Name | Role | Phone | [...] Rd | | | | | | [place], [place] | | | | | | [address] | | | | | | [phone] | | | | | | | | +--------+ + + + + | 06/24/ | Surgery | Surgery | Chilo, | OPEN VENTRAL HERNIA | | 2018 | | | MD Jorje [address] | REPAIR WITH | | | | | [address] | BIOLOGICAL MESH | | | | | [place], [place] | | | | | | [address] | | | | | | [phone] | | | | | | | | +--------+ + + + + | 06/30/ | Office | Cardiology | Randell Franks, | | | 2018 | Visit | | [address] | | | | | | [place], [place] | | | | | | [address] | | | | | | [phone] | | | | | | | | +--------+ + + + + documented as of this encounter Visit Diagnoses Not on filedocumented in this encounter"
--- OUTSIDE RECORDS SUMMARY | ~2019-06-01 | XMS | Encounter Summary ---
Demographics + + + | Address | [address] | | | [place] [address] | + + + | Home Phone [...] [place], [place] | | | | | [address] | | + + + + + | Ellie Vang | ECON | Unknown | | + + + + + Care Team Providers + +------+ + | Care Scoop Machine Operator Name | Role | Phone [...] | 2014 | | Center at [facility] [address] | [facility] [address] | Review (Pre-surgery | | | | [address] | Ave [place], [place] | meal plan. To be | | | | Mailcode: Center | [address] | provided to home | | | | for Health and | | health nurse. ) | | | | [facility], [address] | | | | | | [place], [place] | | | | | | [address] | | | | | | | [...] Rd | | | | | | [place], [place] | | | | | | [address] | | | | | | [phone] | | | | | | | | +--------+ + + + + | 06/24/ | Surgery | Surgery | Chilo, | OPEN VENTRAL HERNIA | | 2018 | | | MD Jorje [address] | REPAIR WITH | | | | | [address] | BIOLOGICAL MESH | | | | | [place] | | | | | | [address] | | | | | | [phone] | | | | | | | | +--------+ + + + + | 06/30/ | Office | Cardiology | Randell Franks, | | | 2018 | Visit | | [address] | | | | | | [place] | | | | | | [address] | | | | | | [phone] | | | | | | | | +--------+ + + + + documented as of this encounter Visit Diagnoses Not on filedocumented in this encounter"
--- OUTSIDE RECORDS SUMMARY | ~2019-06-01 | XMS | Encounter Summary ---
Demographics + + + | Address | [address] | | | [place] [address] | + + + | Home Phone [...] [place], [place] | | | | | [address] | | + + + + + | Ellie Vang | ECON | Unknown | | + + + + + Care Team Providers + +------+ + | Care Hat Lining Paster Name | Role | Phone [...] | | | [address] | [place], [place] | | | | | Mailcode: L223A | [address] | | | | | [facility] | [phone] | | | | | [address] [place], [place] | | | | | | [address] | | | | | | [phone] | | | +--------+---------+ + + + [...] Dr. Andie Brian Incisional hernia repair 02/2015 [facility]/ Dr. Cantu PHYSICAL EXAMINATION: BP [...] AT PPV [address] [facility] Mailcode: [address] [place] [address] documented in this encounter Plan [...] Rd | | | | | | [place], [place] | | | | | | [address] | | | | | | [phone] | | | | | | | | +--------+ + + + + | 06/24/ | Surgery | Surgery | Chilo, | OPEN VENTRAL HERNIA | | 2018 | | | MD [address] | REPAIR WITH | | | | | [address] | BIOLOGICAL MESH | | | | | [place], [place] | | | | | | [address] | | | | | | [phone] | | | | | | | | +--------+ + + + + | 06/30/ | Office | Cardiology | Randell Franks, | | | 2019 | Visit | | MD [address] | | | | | | [address] [place], [place] | | | | | | [address] | | | | | | [phone] | | | | | | | | +--------+ + + + + documented as of this encounter Visit Diagnoses + + | Diagnosis | + + | Incarcerated incisional hernia - Primary Incisional hernia with obstruction | + + documented in this encounter"
--- OUTSIDE RECORDS SUMMARY | ~2019-06-01 | XMS | Encounter Summary ---
Demographics + + + | Address | [address] | | | [place] [address] | + + + | Home Phone [...] Team Providers + +------+ + | Care Editor Book Name | Role | Phone | + [...] Lesly | | | | | Mailcode: Ovid | [place], [place] | | | | | [facility] and | [address] | | | | | [facility] | [phone] | | | | | [place], [place] | | | | | | [address] | | | | | | [phone] | | | +--------+ + + + [...] | Hospital | Adult Acute Care | hCilo | | | 2019 | Encounter | | MD Jorje [address] | | | | | | [address] | | | | | | [place], [place] | | | | | | [address] | | | | | | [phone] | | | | | | | | +--------+ + + + + | 06/24/ | Surgery | Surgery | Chilo | OPEN VENTRAL HERNIA | | 2018 | | | MD Jorje [address] | REPAIR WITH | | | | | [address] | BIOLOGICAL MESH | | | | | [place], [place] | | | | | | [address] | | | | | | [phone] | | | | | | | | +--------+ + + + + | 06/30/ | Office | Cardiology | Randell Franks, | | | 2018 | Visit | | [address] | | | | | | Ave [place], [place] | | | | | | [address] | | | | | | [phone] | | | | | | | | +--------+ + + + + documented as of this encounter Visit Diagnoses Not on filedocumented in this encounter"
--- OUTSIDE RECORDS SUMMARY | ~2019-06-01 | XMS | Encounter Summary ---
Demographics + + + | Address | [address] | | | [place] [address] | + + + | Home Phone [...] [place], [place] | | | | | [address] | | + + + + + | Ellie Vang | ECON | Unknown | | + + + + + Care Team Providers + +------+ + | Care Professor Computer Science Name | Role | Phone | + +------+ + | Fadi Goodrich DO | PCP | | + +------+ + Encounter Details +--------+---------+ + + + | Date | Type | Department | Care Team | Description | +--------+---------+ + + + | 01/11/ | Office | Digestive Health | | Morbid obesity (HCC) | | 2018 | Visit | Center at [facility] [address] | | (Primary Dx) | | | | [address] | | | | | | Mailcode: [place] | | | | | | [facility] and | | | | | | [facility] 2 | | | | | | [place], [place] | | | | | | [address] | | | | | | [phone] | | | +--------+---------+ + + + [...] of Class: 1055 until 1155 (60 minutes ciuz-vq-gicg with patient) Teaching Methods: PowerPoint and verbal [...] a journal with fluid/protein d. Transportation 7. [facility] 8. Surgical [...] Rd | | | | | | [place], [place] | | | | | | [address] | | | | | | [phone] | | | | | | | | +--------+ + + + + | 06/24/ | Surgery | Surgery | Chilo, | OPEN VENTRAL HERNIA | | 2018 | | | MD Jorje [address] | REPAIR WITH | | | | | [address] | BIOLOGICAL MESH | | | | | [place], [place] | | | | | | [address] | | | | | | [phone] | | | | | | | | +--------+ + + + + | 06/30/ | Office | Cardiology | Randell Franks, | | | 2018 | Visit | | [address] | | | | | | [place], [place] | | | | | | [address] | | | | | | [phone] | | | | | | | | +--------+ + + + + documented as of this encounter Visit Diagnoses + + | Diagnosis | + + | Morbid obesity (HCC) - Primary Morbid obesity | + + documented in this encounter"
--- OUTSIDE RECORDS SUMMARY | ~2019-06-01 | XMS | Encounter Summary ---
Demographics + + + | Address | [address] | | | [place] [address] | + + + | Home Phone [...] [place], [place] | | | | | [address] | | + + + + + | Ellie Vang | ECON | Unknown | | + + + + + Care Team Providers + +------+ + | Care Impregnator Electrolytic Capacitors Name | Role | Phone | + [...] Diabetes & | Morbid | Kathy M, DISBURSING AGENT | [address] | | | | Metabolism | obesity | [address] | [address] | | | | | ([facility]) | [address], | [address] | | | | | Procedures | [address] | Physician's | | | | | CONSULT TO | [place], [place] | Pavilion | | | | | ENDO | [address] | Physician's | | | | | [address] | Phone: | Pavilion | | | | | | [phone] | [place], [place] | | | | | | Fax: | [address] | | | | | | [phone] | Phone: | | | | | | | [phone] | | | | | | | Fax: | | | | | | | [phone] | +--------+--------+ + + + + Encounter [...] | | [facility] | [place], [place] | (Primary Dx); Morbid | | | | [address] | [address] | obesity (HCC) | | | | [address] | [phone] | | | | | Physician's | | | | | | Pavilion | | | | | | Physician's Pavilion | | | | | | [place], [place] | | | | | | [address] | | | | | | [phone] | | | +--------+---------+ + + + [...] Rd | | | | | | [place], [place] | | | | | | [address] | | | | | | [phone] | | | | | | | | +--------+ + + + + | 06/24/ | Surgery | Surgery | Chilo, | OPEN VENTRAL HERNIA | | 2018 | | | MD Demond [address] | REPAIR WITH | | | | | [address] | BIOLOGICAL MESH | | | | | [place], [place] | | | | | | [address] | | | | | | [phone] | | | | | | | | +--------+ + + + + | 06/30/ | Office | Cardiology | Randell Franks, | | | 2018 | Visit | | [address] | | | | | | [place], [place] | | | | | | [address] | | | | | | [phone] | | | | | | | [...]
--- OUTSIDE RECORDS SUMMARY | ~2019-06-01 | XMS | Encounter Summary ---
Demographics + + + | Address | [address] | | | [place] [address] | + + + | Home Phone [...] [place], [place] | | | | | [address] | | + + + + + | Ellie Vang | ECON | Unknown | | + + + + + Care Team Providers + +------+ + | Care Plywood And Veneer Repairer Name | Role | Phone | + +------+ + | Kenyatta Cardenas MD | PCP | | + +------+ + Encounter Details +--------+ + + + + | Date | Type | Department | Care Team | Description | +--------+ + + + + | 03/10/ | Pharmacy | [facility] | | | | 2018 | Visit | [facility] | | | | | | [address] | | | | | | Mailcode: Center | | | | | | [facility] and | | | | | | [facility] [address] | | | | | | [place], [place] | | | | | | [address] | | | | | | [phone] | | | +--------+ + + + [...] [place] | | | | | | [address] | | | | | | [phone] | | | | | | | | +--------+ + + + + | 06/24/ | Surgery | Surgery | Chilo, | OPEN VENTRAL HERNIA | | 2018 | | | MD Demond Recinos | REPAIR WITH | | | | | [address] | BIOLOGICAL MESH | | | | | [place], [place] | | | | | | [address] | | | | | | [phone] | | | | | | | | +--------+ + + + + | 06/30/ | Office | Cardiology | Randell Franks, | | | 2018 | Visit | | MD [address] | | | | | | [facility] [place] | | | | | | [address] | | | | | | [phone] | | | | | | | | +--------+ + + + + documented as of this encounter Visit Diagnoses Not on filedocumented in this encounter"
--- OUTSIDE RECORDS SUMMARY | ~2019-06-01 | XMS | Encounter Summary ---
Demographics + + + | Address | [address] | | | [place] [address] | + + + | Home Phone [...] [place], [place] | | | | | [address] | | + + + + + | Ellie Vang | ECON | Unknown | | + + + + + Care Team Providers + +------+ + | Care Helmet Hat Puncher Name | Role | Phone | + +------+ + | Fadi Goodrich DO | PCP | | + +------+ + Encounter Details +--------+------+ + + + | Date | Type | Department | Care Team | Description | +--------+------+ + + + | 10/12/ | Lab | Laboratory at [facility] | | | | 2019 | | [address] | | | | | | [place], [place] | | | | | | [address] | | | | | | [phone] | | | +--------+------+ + + + [...] [place] | | | | | | [address] | | | | | | [phone] | | | | | | | | +--------+ + + + + | 06/24/ | Surgery | Surgery | Chilo, | OPEN VENTRAL HERNIA | | 2018 | | | MD [address] | REPAIR WITH | | | | | [address] | BIOLOGICAL MESH | | | | | [facility] [place] | | | | | | [address] | | | | | | [phone] | | | | | | | | +--------+ + + + + | 06/30/ | Office | Cardiology | Randell Franks, | | | 2018 | Visit | | [address] | | | | | | [place], [place] | | | | | | [address] | | | | | | [phone] | | | | | | | [...] [facility] | [address] | [place] [address] | | | LYDIA RANGEL | [place] [...] INT[facility] | | | | determined by [employer] | | | | | | Laboratories. See | | | | | | Compliance Statement B: | | | | | | [email or web address].COM/CSPerformed | | | | | | by Technical Machine,[address] | | | | | | [place] [place], [facility],[place] | | | | | | [address] | | | | | | [phone].[employer]. | | | | | | LeisureLinkIsmael MD, | | | | | | [...] [facility] | [address] | [place], [place] | | | UNIV PTH - INTFC | | [address] | | + + + + + [...] | | | | | determined by [employer] | | | | | | Laboratories. See | | | | | | Compliance Statement B: | | | | | | [employer].LeisureLink/CSPerformed | | | | | | by Technical Machine,[address] | | | | | | [facility] | | | | | | [address] | | | | | | [phone].[employer]. | | | | | | com, Ismael Willis MD, | | | | | | Lab. Director | | | | + + + + + + + + | Specimen | + + | Blood - Blood | | (substance) | + + + + + + + | Performing | Address | City/State/Unm Hospitalcode | Phone Number | | Organization | | | | + + + + + | [facility] | [address] | [place], [place] | | | UNIV PTH - INTFC | | [address] | | + + + + + [...] [facility] | | | (YEN NOAH) | [facility],[address] | | REG UNIV | | | SERUM | [facility] | | PTH - INTFC | | | | [address] | | | | | | [phone]. | | | | | | Ismael [...] B: | | | | | | [email or web address]COM/CS | | | | + + + + + + + + | Specimen | + + | Blood - Blood | | (substance) | + + + + + + + | Performing | Address | City/State/Zipcode | Phone Number | | Organization | | | | + + + + + | [facility] | [address] | [place], [place] | | | UNIV PTH - INTFC | | [address] | | + + + + + [...] [facility] | [address] | [place] [address] | | | SERVICES, CORE | PARK [...] [facility] | [address] | [place] [address] | | | SERVICES, CORE | [place] [...] INTERPRETIVE | 70 - 180 nmol/L | [facility] | | | WHOLE | INFORMATION: Vitamin [...] | | | | | determined by [facility] | | | | | | Laboratories. See | | | | | | Compliance Statement B: | | | | | | [employer].LeisureLink/CSPerformed | | | | | | by Technical Machine,[address] | | | | | | Natalia Martinez [facility],[place] | | | | | | [address] | | | | | | [phone].[employer]. | | | | | | [...] [facility] | [address] | [place], [place] | | | UNIV PTH - INTFC | | [address] | | + + + [...] | [facility] | [address] | [place] [address] | | | SERVICES, LYDIA | [place] [...] | | | | | determined by [employer] | | | | | | kenxus. See | | | | | | Compliance Statement B: | | | | | | [employer].LeisureLink/CSPerformed | | | | | | by Technical Machine,[address] | | | | | | [place], [place] | | | | | | [address] | | | | | | [phone].[employer]. | | | | | | [...] [facility] | [address] | [place], [place] | | | UNIV PTH - INTFC | | [address] | | + + + + + [...] [facility] | [address] | [place] [address] | | | SERVICES, CORE | PARK [...] | + + + + + | [facility] | [address] [facility] | [place] [address] | | | SERVICES, SPECIAL | PARK [...] | + + + + + | [facility] | [address] | [place] [address] | | | SERVICES, CORE | [place] [...] at | | | | | | [email or web address] | | | | | | med by [facility] | | | | | | [facility],[address] [place] [address] | | | | | | Juan [facility] [place] [address] | | | | | | [phone].[facility]. | | | | | | kane [...] [facility] | [address] | [place], [place] | | | UNIV PTH - INTFC | | [address] | | + + + + + [...] + + | [facility] | [address] | [place] [address] | | | SERVICES, CORE | [address] | | | + + + + + documented in this encounter Visit Diagnoses Not on filedocumented in this encounter"
--- OUTSIDE RECORDS SUMMARY | ~2019-06-01 | XMS | Encounter Summary ---
Demographics + + + | Address | [address] | | | [place] [address] | + + + | Home Phone [...] [place], [place] | | | | | [address] | | + + + + + | Ellie Vang | ECON | Unknown | | + + + + + Care Team Providers + +------+ + | Care Fabricator Industrial Furnace Name | Role | Phone | + [...] | | 2018 | | Preventive at [facility] | MD [address] | (Phentermine 37.5mg) | | | | [address] | [place], [place] | | | | | Mailcode: EARL | [address] | | | | | [facility] | [phone] | | | | | and Erick, | | | | | | [address] | | | | | | [place], [place] | | | | | | [address] | | | | | | [phone] | | | +--------+ + + + [...] Rd | | | | | | [place] | | | | | | [address] | | | | | | [phone] | | | | | | | | +--------+ + + + + | 06/24/ | Surgery | Surgery | Chilo, | OPEN VENTRAL HERNIA | | 2018 | | | MD [address]ond [address] | REPAIR WITH | | | | | [address] | BIOLOGICAL MESH | | | | | [place], [place] | | | | | | [address] | | | | | | [phone] | | | | | | | | +--------+ + + + + | 06/30/ | Office | Cardiology | Randell Franks, | | | 2019 | Visit | | MD [address] | | | | | | [place], [place] | | | | | | [address] | | | | | | [phone] | | | | | | | | +--------+ + + + + documented as of this encounter Visit Diagnoses Not on filedocumented in this encounter"
--- OUTSIDE RECORDS SUMMARY | ~2019-06-01 | XMS | Encounter Summary ---
Demographics + + + | Address | [address] | | | [place] [address] | + + + | Home Phone [...] [place], [place] | | | | | [address] | | + + + + + [...] + | Medical Records | Letter from family service caseworker. | | Review | | + + + Encounter Details +--------+ + + + + | Date | Type | Department | Care Team | Description | +--------+ + + + + | 11/08/ | Abstract | Digestive Health | Shereen Georges, | Medical Records | | 2015 | | Center at [facility] [address] | [facility] [address] | Review (Letter from | | | | [address] | [place], [place] | family service caseworker. ) | | | | Mailcode: Maury | [address] | | | | | [facility] and | [phone] | | | | | [place] [address] | | | | | | [place], [place] | | | | | | [address] | | | | | | [phone] | | | +--------+ + + + [...] Rd | | | | | | [place] | | | | | | [address] | | | | | | [phone] | | | | | | | | +--------+ + + + + | 06/24/ | Surgery | Surgery | Chilo | OPEN VENTRAL HERNIA | | 2019 | | | MD Demond [address] | REPAIR WITH | | | | | [address] | BIOLOGICAL MESH | | | | | [place] | | | | | | [address] | | | | | | [phone] | | | | | | | | +--------+ + + + + | 06/30/ | Office | Cardiology | Randell Franks, | | | 2019 | Visit | | [address] | | | | | | [place], [place] | | | | | | [address] | | | | | | [phone] | | | | | | | | +--------+ + + + + documented as of this encounter Visit Diagnoses Not on filedocumented in this encounter"
--- OUTSIDE RECORDS SUMMARY | ~2019-06-01 | XMS | Encounter Summary ---
[...] [place], [place] | | | | | [address] | | + + + + + | Ellie Vang | ECON | Unknown | | + + + + + Care Team Providers + +------+ + | Care Petroleum Engineering Teacher Name | Role | Phone | [...] | | | without | [place] | [address] | | | | | mention of | | Phone: | | | | | obstruction | | [phone] | | | | | or gangrene | | Fax: | | | | | | | [phone] | +--------+--------+ + + + + Encounter [...] | [facility] [address] | [address] | Hernia | | | | [address] | [place], [place] | | | | | Mailcode: L223A | [address] | | | | | [facility] | [phone] | | | | | [address] [place], [place] | | | | | | [address] | | | | | | [phone] | | | +--------+---------+ + + + [...] are still in, And wound is healed. [place] removed. Drainage is serous, very slight sanguinous. No eviden ce of deep subcutaneous infection. Abdominal wall currently intact. Drain site OK. Assessment/Plan: Satisfactory course following primary repair of incarcerated umbilical he rnia. Pt. Wants to obtain care, including drain removal and diabetic care in [place], so I have referred her to her [...] Rd | | | | | | [place], [place] | | | | | | [address] | | | | | | [phone] | | | | | | | | +--------+ + + + + | 06/24/ | Surgery | Surgery | Chilo, | OPEN VENTRAL HERNIA | | 2018 | | | MD Jorje [address] | REPAIR WITH | | | | | [address] | BIOLOGICAL MESH | | | | | [place], [place] | | | | | | [address] | | | | | | [phone] | | | | | | | | +--------+ + + + + | 06/30/ | Office | Cardiology | Randell Franks, | | | 2018 | Visit Analisa Hauser MD [address] | | | | | | [place], [place] | | | | | | [address] | | | | | | [phone] | | | | | | | [...]
--- OUTSIDE RECORDS SUMMARY | ~2019-06-01 | XMS | Encounter Summary ---
Demographics + + + | Address | [address] | | | [place] [address] | + + + | Home Phone [...] [place], [place] | | | | | [address] | | + + + + + | Ellie Vang | ECON | Unknown | | + + + + + Care Team Providers + +------+ + | Care Umbrella Mender Name | Role | Phone | [...] Surgery | 6A Intra Op [facility] | oIn Castanon, | LAPAROSCOPIC NISH EN | | 2017 | | [facility] | MD [address] | Y GASTRIC BYPASS | | | | Admitting Desk | [place], [place] | | | | | Located on the | [address] | | | | | floor [address] [facility] | [phone] | | | | | [address] | | | | | | [place], [place] | | | | | | [address] | | | +--------+---------+ + + + [...] ACNP - 03/03/2018 9:49 AM PDT [facility] RED SURGERY INPATIENT [...] to a bariatric full liquid diets. Our [facility] dietitian was consulted and they [...] at minimum. 5. Follow with PCP for Host And Hostess within 1 - 2 weeks of discharge [...] mg by mouth two times daily. CALCIUM CRB&[id number]-[id number]-GENIS ORAL Take 2 tablets by mouth two [...] yogurt or kefir. Zaria's Yogurt or Kefir, [place] Cryotherapyfield Yogurt, and [employer] Yakut Yogurt are common brands with beneficial probiotics. [...] hours per your instructions. Some medications, like Tyner, have Tylenol in it. Make sure you [...] (PCP) as this clinic does not provide [facility] chronic pain management services. When to [...] hours by calling the surgery office at [phone]. - After hours, weekends and holidays, you may call the hospital erco machine operator at [phone] an d have the second baker Red Surgery Team paged. OTHER DISCHARGE ORDERS [...] at minimum. 5. Follow with PCP for Host And Hostess within 1 - 2 weeks of discharge [...] 03/10/2018 1:30 PM [facility] at [facility] 6th Floor [phone] FO OD AND NUT 03/10/2018 3:05 PM Ronna Clarke Digestive [facility] at [facility] 6th Floor [phone] [facility] 04/01/2018 10:30 AM [facility] at [facility] 6th Floor [phone] FO OD AND NUT 04/01/2018 11:00 AM Ion Castanon Digestive [facility] at [facility] 6th Floor [phone] [facility] 05/27/2018 2:30 PM [facility] at [facility] 6th Floor [phone] FO OD AND NUT 05/27/2018 3:05 PM [facility] 6th Floor [phone] [facility] 05/27/2018 4:30 PM [facility] at [facility] 15th Floor [phone] Comprehensiv 06/04/2018 10:35 AM Randell Franks Cardiology Preventive at [facility] [phone] Cardiology Discharging Physician: KAIN Agee Attending Physician: Ion Castanon MD [facility] Red Surgery Pager# [phone] 9:50 AM 03/03/2018 documented in this enco [...] | | 0 | | | | CRB&LHE-[id number]-[id number]-GEN | mouth two times | | | [...] of discharge 03/03/18 PARTHA Calixto MS3 [facility] [employer] Demarcus Menon MD [...] for care ride home (pt lives in [place]) Demarcus Alas M.D. General Surgery Resident PGY-1 Pager: [phone] Ion Ferrari MD - 10:00 AM [address] [...] [address] | | | | | | [place], [place] | | | | | | [address] | | | | | | [phone] | | | | | | | | +--------+ + + + + | 06/24/ | Surgery | Surgery | Chilo, | OPEN VENTRAL HERNIA | | 2018 | | | MD Jorje [address] | REPAIR WITH | | | | | [address] | BIOLOGICAL MESH | | | | | [place], [place] | | | | | | [address] | | | | | | [phone] | | | | | | | | +--------+ + + + + | 06/30/ | Office | Cardiology | Randell Franks, | | | 2018 | Visit | | [address] | | | | | | [address] [place], [place] | | | | | | [address] | | | | | | [phone] | | | | | | | [...] | over, adult ([facility]) | results section. | + +--------+ + + + | CAPILLARY BLOOD | Routin | 03/03/2018 | Morbid obesity | Results for this | | GLUCOSE (NO CHG), | e | 7:54 AM | with BMI of 70 and | procedure are in the | | POC | | PDT | over, adult ([facility]) | results section. | + +--------+ + + + | CAPILLARY BLOOD | Routin | 03/03/2018 | Morbid obesity | Results for this | | GLUCOSE (NO CHG), | e | 6:28 AM | with BMI of 70 and | procedure are in the | | POC | | PDT | over, adult ([facility]) | results section. | + +--------+ + + + | CAPILLARY BLOOD | Routin | 03/02/2018 | Morbid obesity | Results for this | | GLUCOSE (NO CHG), | e | 9:17 PM | with BMI of 70 and | procedure are in the | | POC | | PDT | over, adult ([facility]) | results section. | + +--------+ + + + | CAPILLARY BLOOD | Routin | 03/02/2018 | Morbid obesity | Results for this | | GLUCOSE (NO CHG), | e | 6:50 PM | with BMI of 70 and | procedure are in the | | POC | | PDT | over, adult ([facility]) | results section. | + +--------+ + + + | CAPILLARY BLOOD | Routin | 03/02/2018 | Morbid obesity | Results for this | | GLUCOSE (NO CHG), | e | 3:46 PM | with BMI of 70 and | procedure are in the | | POC | | PDT | over, adult ([facility]) | results section. | + +--------+ + + + | CAPILLARY BLOOD | Routin | 03/02/2018 | Morbid obesity | Results for this | | GLUCOSE (NO CHG), | e | 2:36 PM | with BMI of 70 and | procedure are in the | | POC | | PDT | over, adult ([facility]) | results section. | + +--------+ + + + | CAPILLARY BLOOD | Routin | 03/02/2018 | Morbid obesity | Results for this | | GLUCOSE (NO CHG), | e | 1:33 PM | with BMI of 70 and | procedure are in the | | POC | | PDT | over, adult ([facility]) | results section. | + +--------+ + + + | CAPILLARY BLOOD | Routin | 03/02/2018 | Morbid obesity | Results for this | | GLUCOSE (NO CHG), | e | 11:36 AM | with BMI of 70 and | procedure are in the | | POC | | PDT | over, adult ([facility]) | results section. | + +--------+ + + + | CAPILLARY BLOOD | Routin | 03/02/2018 | Morbid obesity | Results for this | | GLUCOSE (NO CHG), | e | 10:32 AM | with BMI of 70 and | procedure are in the | | POC | | PDT | over, adult ([facility]) | results section. | + +--------+ + + + | CAPILLARY BLOOD | Routin | 03/02/2018 | Morbid obesity | Results for this | | GLUCOSE (NO CHG), | e | 9:23 AM | with BMI of 70 and | procedure are in the | | POC | | PDT | over, adult ([facility]) | results section. | + +--------+ + + + | CAPILLARY BLOOD | Routin | 03/02/2018 | Morbid obesity | Results for this | | GLUCOSE (NO CHG), | e | 8:36 AM | with BMI of 70 and | procedure are in the | | POC | | PDT | over, adult ([facility]) | results section. | + +--------+ + + + | CAPILLARY BLOOD | Routin | 03/02/2018 | Morbid obesity | Results for this | | GLUCOSE (NO CHG), | e | 7:35 AM | with BMI of 70 and | procedure are in the | | POC | | PDT | over, adult ([facility]) | results section. | + +--------+ + + + | CAPILLARY BLOOD | Routin | 03/02/2018 | Morbid obesity | Results for this | | GLUCOSE (NO CHG), | e | 6:33 AM | with BMI of 70 and | procedure are in the | | POC | | PDT | over, adult ([facility]) | results section. | + +--------+ + + + | CAPILLARY BLOOD | Routin | 03/02/2018 | Morbid obesity | Results for this | | GLUCOSE (NO CHG), | e | 5:28 AM | with BMI of 70 and | procedure are in the | | POC | | PDT | over, adult ([facility]) | results section. | + +--------+ + + + | CAPILLARY BLOOD | Routin | 03/02/2018 | Morbid obesity | Results for this | | GLUCOSE (NO CHG), | e | 4:36 AM | with BMI of 70 and | procedure are in the | | POC | | PDT | over, adult ([facility]) | results section. | + +--------+ + + + | CAPILLARY BLOOD | Routin | 03/02/2018 | Morbid obesity | Results for this | | GLUCOSE (NO CHG), | e | 2:46 AM | with BMI of 70 and | procedure are in the | | POC | | PDT | over, adult ([facility]) | results section. | + +--------+ + + + | CAPILLARY BLOOD | Routin | 03/02/2018 | Morbid obesity | Results for this | | GLUCOSE (NO CHG), | e | 12:32 AM | with BMI of 70 and | procedure are in the | | POC | | PDT | over, adult ([facility]) | results section. | + +--------+ + + + | CAPILLARY BLOOD | Routin | 03/01/2018 | Morbid obesity | Results for this | | GLUCOSE (NO CHG), | e | 10:31 PM | with BMI of 70 and | procedure are in the | | POC | | PDT | over, adult ([facility]) | results section. | + +--------+ + + + | CAPILLARY BLOOD | Routin | 03/01/2018 | Morbid obesity | Results for this | | GLUCOSE (NO CHG), | e | 8:21 PM | with BMI of 70 and | procedure are in the | | POC | | PDT | over, adult ([facility]) | results section. | + +--------+ [...] | over, adult ([facility]) | results section. | + +--------+ + + + | CAPILLARY BLOOD | Routin | 03/01/2018 | Morbid obesity | Results for this | | GLUCOSE (NO CHG), | e | 3:31 PM | with BMI of 70 and | procedure are in the | | POC | | PDT | over, adult ([facility]) | results section. | + +--------+ + + + | CAPILLARY BLOOD | Routin | 03/01/2018 | Morbid obesity | Results for this | | GLUCOSE (NO CHG), | e | 3:29 PM | with BMI of 70 and | procedure are in the | | POC | | PDT | over, adult ([facility]) | results section. | + +--------+ + + + | CAPILLARY BLOOD | Routin | 03/01/2018 | Morbid obesity | Results for this | | GLUCOSE (NO CHG), | e | 2:30 PM | with BMI of 70 and | procedure are in the | | POC | | PDT | over, adult ([facility]) | results section. | + +--------+ + + + | CAPILLARY BLOOD | Routin | 03/01/2018 | Morbid obesity | Results for this | | GLUCOSE (NO CHG), | e | 1:35 PM | with BMI of 70 and | procedure are in the | | POC | | PDT | over, adult ([facility]) | results section. | + +--------+ + + + | CAPILLARY BLOOD | Routin | 03/01/2018 | Morbid obesity | Results for this | | GLUCOSE (NO CHG), | e | 12:16 PM | with BMI of 70 and | procedure are in the | | POC | | PDT | over, adult ([facility]) | results section. | + +--------+ [...] | over, adult ([facility]) | results section. | + +--------+ + + + | LAPAROSCOPIC | Electi | 03/01/2018 | Morbid obesity | | | NISH-EN-Y GASTRIC | ve | 8:31 AM | ([facility]) | | | BYPASS | Surgic | [...] AMES | [address] | [place], [place] | | | [facility] OF JAKY | [facility] | [address] | | | TESTS | | | [...] MARQUAM | [address] | [place], [place] | | | JUST[facility] DA[facility] OF CARE | [facility] | [address] | | | TESTS | | | | + + + + + CAPILLARY BLOOD GLUCOSE (NO CHG), POC (03/03/2018 6:28 AM PDT) + +-------+ + + + | Component | Value | Ref Range | Performed | Pathologist | | | | | At | Signature | + +-------+ + + + | BLOOD | 92 | 70 - 99 mg/dL | [facility] - | | | GLUCOSE, | [...] MARQUAM | [address] | [place], [place] | | | [facility] OF JAKY | [facility] | [address] | | | TESTS | | | [...] AMES | [address] | [place], [place] | | | JUST[facility] OF [place]AK[place] | [address] | [address] | | | TESTS | | | [...] MARQUAM | [address] | [place], [place] | | | [place], POINT OF CARE | [address] | [address] | | | TESTS | | | [...] MARQUAM | [address] | [place], [place] | | | JUST[facility] OF JAK[place] | [facility] | [address] | | | TESTS | | | [...] AMES | [address] | [place], [place] | | | [facility] POINT OF CARE | [address] | [address] | | | TESTS | | | [...] MARQUAM | [address] | [place], [place] | | | [facility] OF CARE | [facility] | [address] | | | TESTS | | | [...] MARQUAM | [address] | [place], [place] | | | [facility] [facility] OF JAK[place] | [facility] | [address] | | | TESTS | | | [...] AMES | [address] | [place], [place] | | | [facility] POINT OF CARE | [address] | [address] | | | TESTS | | | [...] MARQUAM | [address] | [place], [place] | | | [facility] OF CARE | [facility] | [address] | | | TESTS | | | [...] MARQUAM | [address] | [place], [place] | | | [facility] OF J[place] | [facility] | [address] | | | TESTS | | | [...] AMES | [address] | [place], [place] | | | [place] POINT OF CARE | [address] | [address] | | | TESTS | | | [...] MARQUAM | [address] | [place], [place] | | | [facility] [facility]ARE | [address] | [address] | | | TESTS | | | [...] - MARQUAM | [address] | [place], [place] | | | [facility] POINT OF CARE | [facility] | [address] | | | TESTS | | | [...] + + + | NKECHI AMES | [address] | [place], [place] | | | [facility] POINT OF CARE | [address] | [address] | | | TESTS | | | [...] MARQUAM | [address] | [place], [place] | | | [facility] [facility]INT [facility]ARE | [address] | [address] | | | TESTS | | | [...] - MARQUAM | [address] | [place], [place] | | | [facility] [facility]INT [facility] CARE | [address] | [address] | | | TESTS | | | [...] + + + | NKECHI AMES | [address] | [place], [place] | | | [facility] POINT OF CARE | [address] | [address] | | | TESTS | | | [...] MARQUAM | [address] | [place], [place] | | | [facility] POINT OF CARE | [address] | [address] | | | TESTS | | | [...] MARQUAM | [address] | [place], [place] | | | [facility] OF JAKY | [facility] | [address] | | | TESTS | | | [...] AMES | [address] | [place], [place] | | | [facility] POINT OF CARE | [address] | [address] | | | TESTS | | | [...] MARQUAM | [address] | [place], [place] | | | [facility] [facility]INT [facility] CARE | [address] | [address] | | | TESTS | | | [...] MARQUAM | [address] | [place], [place] | | | [facility] POINT OF CARE | [facility] | [address] | | | TESTS | | | [...] AMES | [address] | [place], [place] | | | [facility] POINT OF CARE | [address] | [address] | | | TESTS | | | [...] MARQUAM | [address] | [place], [place] | | | [facility] POINT OF CARE | [address] | [address] | | | TESTS | | | | + + + + + EGD (ESOPHAGOGASTRODUODENOSCOPY) (03/01/2018 11:21 AM PDT) + + + | Narrative | Performed At | + + + | Ion Castanon MD 03/01/2018 12:25 PM Date of Procedure: | | | 03/01/18 Primary Surgeon: Ion Castanon MD Co Surgeon or | | | assistant associate full professor: Eldon Gonzalez MD, Chief Resident Alexx | [...] The jejunum was divided with 60 mm [place] stapler with white | | | load [...] created in each limb and a 60mm [place] stapler | | | with white load was fired to create a [id number] | | | jejunojejunostomy. The anastamosis was confirmed to be widely | | | patent and hemostatic. The common enterotomy was closed by placing | | | 2 stay sutures along the enterotomy for retraction and firing an | | | [place] 60mm stapler with white load across the [...] | | | was entered. The 60mm [place] stapler with blue load was placed | [...] blue load of the 60mm stapler. The [place] was then fired | | | longitudinally towards the angle of His to create the gastric pouch, | | | leaving the gastrotomy from foreign body removal, on the pouch. | | | Dissection was performed retrogastric to connect posterior and | | | anterior dissection planes and ensure adequate fundus exclusion. | | | Additional fires of the [place] stapler were performed with blue | | [...] with | | | 5 mm clip keno manager. A 25mm Orvil was passed transorally [...] was closed with 60mm | | | [place] stapler with a white load. Medially and [...] present | | | as my assistant associate full professor for the entire procedure, given the technically | | | challenging nature of this procedure. She assisted in all critical | | | steps of the procedure. Dr. Gonzalez was present for endoscopy at the | | | end of the procedure. Ion Castanon MD, FACS, [facility] | | | Bariatric Surgery [...] Co Surgeon or | | | assistant associate full professor: Eldon Gonzalez MD, Chief Resident Alexx | [...] The jejunum was divided with 60 mm [place] stapler with white | | | load [...] created in each limb and a 60mm [place] stapler | | | with white load was fired to create a [id number]-[id number]-pxoy | | | jejunojejunostomy. The anastamosis was confirmed to be widely | | | patent and hemostatic. The common enterotomy was closed by placing | | | 2 stay sutures along the enterotomy for retraction and firing an | | | [place] 60mm stapler with white load across the [...] | posterior to the nish limb. A Arisoko liver retractor was | | | placed [...] | | | was entered. The 60mm [place] stapler with blue load was placed | [...] blue load of the 60mm stapler. The [place] was then fired | | | longitudinally towards the angle of His to create the gastric pouch, | | | leaving the gastrotomy from foreign body removal, on the pouch. | | | Dissection was performed retrogastric to connect posterior and | | | anterior dissection planes and ensure adequate fundus exclusion. | | | Additional fires of the [place] stapler were performed with blue | | [...] with | | | 5 mm clip keno manager. A 25mm Orvil was passed transorally [...] was closed with 60mm | | | [place] stapler with a white load. Medially and [...] present | | | as my assistant associate full professor for the entire procedure, given the technically | | | challenging nature of this procedure. She assisted in all critical | | | steps of the procedure. Dr. Gonzalez was present for endoscopy at the | | | end of the procedure. Ion Castanon MD, FACS, [facility] | | | Bariatric Surgery [...] MARQUAM | [address] | [place], [place] | | | [facility] OF [facility] | [address] | [address] | | | TESTS | | | [...]
--- OUTSIDE RECORDS SUMMARY | ~2019-06-01 | XMS | Encounter Summary ---
Demographics + + + | Address | [address] | | | [place] [address] | + + + | Home Phone [...] [place], [place] | | | | | [address] | | + + + + + | Ellie Vang | ECON | Unknown | | + + + + + Care Team Providers + +------+ + | Care Sprinkling System Installer Name | Role | Phone [...] 2012 | | Center at [facility] [address] | MD [address] | | | | | [address] | [facility] | | | | | Mailcode: Center | [place], [place] | | | | | [facility] and | [address] | | | | | [facility] | [phone] | | | | | [place], [place] | | | | | | [address] | | | | | | [phone] | | | +--------+ + + + [...] | | | | | | [place], [place] | | | | | | [address] | | | | | | [phone] | | | | | | | | +--------+ + + + + | 06/24/ | Surgery | Surgery | Chilo, | OPEN VENTRAL HERNIA | | 2018 | | | MD Jorje [address] | REPAIR WITH | | | | | [address] | BIOLOGICAL MESH | | | | | [facility] [place] | | | | | | [address] | | | | | | [phone] | | | | | | | | +--------+ + + + + | 06/30/ | Office | Cardiology | Randell Franks, | | | 2018 | Visit | | [address] | | | | | | [place] [facility] [place] | | | | | | [address] | | | | | | [phone] | | | | | | | | +--------+ + + + + documented as of this encounter Visit Diagnoses Not on filedocumented in this encounter"
--- OUTSIDE RECORDS SUMMARY | ~2019-06-01 | XMS | Clinical Summary ---
Demographics + + + | Address | [address] | | | [place] [address] | + + + | Home Phone [...] | Author | [facility] | | | and Jeffana | + + + | Organization | [facility] | | | and [...] Providers + +------+ + | Care Repairer Engine Production Name | Role | Phone | [...] 0 | | | Activ | | [id number]-[id number]-Rr | mouth 2 times daily. 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 | + + + + [...] | | Recent admission to [facility] for 100lb | | weight gain- DC on diuresis on 03/06/2016- she feel improvedShyesenia | | was on Metolazone and Torsemide prior to hospitalization- both | | have better bioavailability than lasix in gut edema but she | | retained 100lbs - how ever she is currently on only Torsemide | | 100mg Q12hrs started in [place] and her weight been stable | | sinceGrace has no other complaints.She is pending to see | | NephrologistCiriloo 02/16/2016([facility])- Normal LV systolic | | function, [...] morbid obesity, she is enrolled in the [facility] bariatric program. | | She has lost [...] inpatient, tolerating well in the | | [facility] hospital-- [facility] arranging for BiPAP upon d/c home to [facility] | | areaOverview: Cannot tolerate CPAP | [...] responded well to diuresis at | | [facility] (lost 60lb, down to 410), and then reaccumulated water | | weight on Torsemide and metolazone, which should be less effected | | by gut wall edema than Lasix. She has an appt with nephrology at | | [facility] on 03/17. Weight now 200kg (440lb, [...] Defer Metolazone to her | | outpatient Automotive Electrical Fitter or Electronic Plotting System Operator- Will continue KCL | | supplementation at 60meq QID despite the spironolactone as she | | remains on the low side- Encourage daily weights at home with a | | log; she should contact her PCP, Automotive Electrical Fitter or Electronic Plotting System Operator for | | a 10lb weight gain [...] | | | | | | ([facility]); Mixed | | | | | [...] | | | | | by [employer] Read Only, | | | | | | [employer] Ya ([id number]), | | | | | | publications editor Glen Alberto | | | | | | ([phone]) on 04/28/2019 | | | | | [...] | [employer] | [employer] | [id number] | 10/28/19 | [phone] | | [employer] | | MEDICAID HMO | HEALTH | | 19-Pre | 1 | | id | | | MDCD | | sent | | | | | | HMO [place] | | | | | | + +--------+ +--------+ +---------+--------+ | [employer] | MOD[employer] | [id number] | | [phone] | | [employer] | | MEDICAID HMO [...] mireya | | | 3 (Home) | [address] | + +--------+ +--------+ + + | Elzbieta Cristina | Person | Self | [birth year] | [address] | | | jordon/Gutierrez | | 1975 | [phone] | [address] [place] | | | mireya | | | 3 (Home) | [phone] | + +--------+ +--------+ + + Advance Directives Patient has advance care planning documents on file. For more information, please contact:[facility] [place] [address]
--- OUTSIDE RECORDS SUMMARY | ~2019-06-01 | XMS | Encounter Summary ---
Demographics + + + | Address | [address] | | | [place] [address] | + + + | Home Phone [...] [place], [place] | | | | | [address] | | + + + + + | Ellie Vang | ECON | Unknown | | + + + + + Care Team Providers + +------+ + | Care Marketing Automation Manager Name | Role | Phone | [...] | | | | | bypass | [place], | Mailcode: | | | | | Nausea and | [place] | [address] [facility] | | | | | vomiting, | [address] | Hospital | | | | | intractabili | Phone: | [place], [place] | | | | | ty of | | [address] | | | | | vomiting not | Fax: | Phone: | | | | | specified, | [phone] | [phone] | | | | | unspecified | | Fax: | | | | | vomiting | | [phone] | | | | | type | [...] | | | | | | [place]AST [place] | | | | | | | CT SCAN OF | | | | | | | ABDOMEN | | | | | | | [place] | | | | | | [...] | | | | | bypass | [place], | Mailcode: | | | | | Nausea and | [place] | [facility] | | | | | vomiting, | [address] | for Health | | | | | intractabili | Phone: | and Healing, | | | | | ty of | [phone] | Building 1, | | | | | vomiting not | Fax: | 5th Floor | | | | | specified, | [phone] | [place], [place] | | | | | unspecified | | [address] | | | | | vomiting | | Phone: | | | | | type | | [phone] | | | | | Diarrhea, | [...] | | | | | bypass | [place], | [address] | | | | | Nausea and | [place] | for Health | | | | | vomiting, | [address] | and Healing, | | | | | intractabili | Phone: | Building 2 | | | | | ty of | | [place], [place] | | | | | vomiting not | Fax: | [address] | | | | | specified, | [phone] | Phone: | | | | | unspecified | | [phone] | | | | | vomiting | | Fax: | | | | | type | | [phone] | | | | | Diarrhea, | [...] | | | | | | | [place] UPPER GI | | | | | [...] | [facility] | | | with ACCOUNTS RECEIVABLE PROCESSOR | | hypertension | [address] | [address] | | | | | Right | [address] | [address] | | | | | heart | [facility] [place] | Mailcode: | | | | | failure | [address] | Center for | | | | | ([facility]) Type | Phone: | Health and | | | | | 2 diabetes | [phone] | Healing, | | | | | mellitus | Fax: | Building 2 | | | | | without | [phone] | [facility] [place] | | | | | complication | | [address] | | | | | , with | | Phone: | | | | | long-term | | | | | | | current use | | Fax: | | | | | of insulin | | [phone] | | | | | ([facility]) | | | | | [...] | Center at [facility] [address] | [facility] [address] | gastric bypass | | | | [address] | Ave [place], [place] | (Primary Dx); Nausea | | | | Mailcode: Center | [address] | and vomiting, | | | | for Health and | | intractability of | | | | Healing, Building 2 | | vomiting not | | | | [place], [place] | | specified, | | | | [address] | | unspecified vomiting | | | | [phone] | | type; Diarrhea, | | | [...] getting fluids at a local clinic in [place] -I will contact you if further testing is indicated -follow up with once of our surgeons once testing is complete -get some protein de la o--isopure or premier protein de la o. documented in this encounter Progress Notes Melissa Garay RN - 03/01/2019 1:50 PM PDTSpoke with patient's PCP office [phone] and notified them that Infusion unit at [facility] (fax [phone]) requires a provider with privileges there to sign the IV infusion orders. Since Dr. Cardenas is out on maternity leave, SOFI Ulrich will check with provider covering. Infusion order and chart not e faxed to PCP at [phone]. Patient notified. Charli Murillo - 03/01/2019 1:50 PM PDTPatient presents for blo od draw per Providers order Site: LEFT A/C Time: 14:30 Patient tolerated well; ONE ATTEMPT Keren Arcos AGACNKat - 03/01/2019 1:50 PM PDT BARIATRIC SURGERY FOLLOW-UP ID: Elzbieta Cristina is a 43 y.o. patient who underwent a Inlesh en y gastric bypass on 03/01 with [...] extreme rashes, postules. She is using gold farirs in the meantime. Denies GERD, constipation Weight [...] Allergic rhinitis Anemia Anxiety Bipolar disorder ([facility]) Chronic wound infection of abdomen from 2010 Cough Depression Diverticulitis of colon Dizziness Glaucoma Heart burn Hemorrhoids Hernia of abdominal wall Incisional hernia, incarcerated 2012 Insomnia Irregular periods Kidney stone Leaking of urine Leg sore Lymphedema Morbid obesity with body mass index of 70 and over in adult ([facility]) Myalgia and myositis Nausea Neck pain Numbness Osteoarthritis of knee Palpitations Pneumonia Shortness of breath Staphylococcal infection Stroke ([facility]) TIA (transient ischemic attack) due [...] nilesh limb 150 cm or less 8 [facility] Social History Socioeconomic History Marital [...] History Narrative Updated 11/09/15 She lives in [place] with her mother and her sister (also her caregiver) lives in an apa rtment/duplex below. She has 2 grandchildren (age 4 and 7) who live with her daughter and son-in-law Her boyfriend lives in [place] HFpEF, DM2, HTN, Sleep Apnea (unable to [...] buccal film, , Disp: , Rfl: CALCIUM [id number]-[id number]-GENIS ORAL, Take 2 tablets by mouth two [...] be administered closer to her home in [place]. LR 1-2 L 3 times weekly, until [...] to plan and will call and/or send Snagsta message if any issues. Start time 1422, end time 1455. I spent a total of 33 minutes face to face with this patie nt. Over 50% of visit was in counseling. ALBINA Perrin Bariatric Surgery Nurse Practitioner [facility] | [address] | [place] | [address] | documented in th is encounter Plan [...] Rd | | | | | | [place], [place] | | | | | | [address] | | | | | | [phone] | | | | | | | | +--------+ + + + + | 06/24/ | Surgery | Surgery | Chilo, | OPEN VENTRAL HERNIA | | 2018 | | | MD Jorje [address] | REPAIR WITH | | | | | [address] | BIOLOGICAL MESH | | | | | [place], [place] | | | | | | [address] | | | | | | [phone] | | | | | | | | +--------+ + + + + | 06/30/ | Office | Cardiology | Randell Franks, | | | 2018 | Visit | | [address] | | | | | | [place], [place] | | | | | | [address] | | | | | | [phone] | | | | | | | [...] | [facility] | [address] | [place] [address] | | | SERVICES, CORE | PARK [...] B: | | | | | | [email or web address].com/CSPerformed | | | | | | by [facility],[address] | | | | | | [facility] | | | | | | [address] | | | | | | [phone].[facility] kas[facility] hospitallab. | | | | | | tooele [...] [facility] | [address] | [place], [place] | | | UNIV PTH - INTFC | | [address] | | + + + + + [...] [facility] | | | (YEN NOAH) | [facility],[address] | | REG UNIV | | | SERUM | [place], [place] | | PTH - INTFC | | | | [address] | | | | | | [phone].[email or web address].TVuplab. | | | | | | Ismael [...] B: | | | | | | Atooma/CS | | | | + + + + + + + + | Specimen | + + | Blood - Blood | | (substance) | + + + + + + + | Performing | Address | City/State/Zipcode | Phone Number | | Organization | | | | + + + + + | [facility] | [address] | [place], [place] | | | UNIV PTH - INTFC | | [address] | | + + + + + [...] [facility] | [address] | [place] [address] | | | CLAIRE, CORE | PARK [...] | + + + + + | [facility] | [address] [facility] | [place] [address] | | | SERVICES, CORE | PARK [...] | | | | | determined by [facility] | | | | | | Laboratories. See | | | | | | Compliance Statement B: | | | | | | [employer]/CSPerformed | | | | | | by [facility],[address] | | | | | | [facility] | | | | | | [address] | | | | | | [phone].[employer]. | | | | | | com, [...] [facility] | [address] | [place], [place] | | | UNIV PTH - INTFC | | [address] | | + + + + + [...] B: | | | | | | [employer]/CSPerformed | | | | | | by [facility],[address] | | | | | | [facility] | | | | | | [address] | | | | | | [phone].[employer]. | | | | | | Ismael [...] [facility] | [address] | [place], [place] | | | UNIV PTH - INTFC | | [address] | | + + + + + [...] [facility] | [address] | [place] [address] | | | SERVICES, CORE | PARK [...] | | | | | determined by [facility] | | | | | | Laboratories. See | | | | | | Compliance Statement B: | | | | | | [facility]/CSPerformed | | | | | | by [facility],[address] | | | | | | [facility] | | | | | | [address] | | | | | | [phone].Adbrain. | | | | | | Emergency Service PartnersIsmael MD, | | | | | | [...] [facility] | [address] | [place], [place] | | | UNIV PTH - INTFC | | [address] | | + + + + + [...] [facility] | [address] | [place] [address] | | | SERVICES, CORE | PARK [...] [facility] | [address] | [place] [address] | | | SERVICES, CORE | PARK [...] | + + + + + | [facility] | [address] [facility] | [place] [address] | | | SERVICES, SPECIAL | CLARENCE [...] | + + + + + | [facility] | [address] | [place] [address] | | | SERVICES, CORE | PARK [...] B: | | | | | | [facility]/CSPerformed | | | | | | by [facility],[address] | | | | | | [address] [facility] | | | | | | [address] | | | | | | [phone].Buzzerolab. | | | | | | comIsmael [...] [facility] | [address] | [place], [place] | | | UNIV PTH - INTFC | | [address] | | + + + + + [...] + | [facility] | [address] | [place] [address] | | | SERVICES, CORE | CLARENCE [...]
--- OUTSIDE RECORDS SUMMARY | ~2019-06-01 | XMS | Encounter Summary ---
Demographics + + + | Address | [address] | | | [place] [address] | + + + | Home Phone [...] [place], [place] | | | | | [address] | | + + + + + [...] Diabetes & | Morbid | Kathy M, OPTOMETRIC TECHNOLOGIST | [address] | | | | Metabolism | obesity | [address] | [address] | | | | | (HCC) | [address], | [address] | | | | | Procedures | [address] | Physician's | | | | | CONSULT TO | [place], [place] | [place] | | | | | ENDO | [address] | Physician's | | | | | [address] | Phone: | Pavilion | | | | | [address] | [phone] | [place], [place] | | | | | | Fax: | [address] | | | | | | [phone] | Phone: | | | | | | | [phone] | | | | | | | Fax: | | | | | | | [phone] | +--------+--------+ + + + + Encounter [...] | | Center at Physicians | Ave [place], [place] | ([facility]) (Primary Dx); | | | | Pav[address] | [address] | Type 2 diabetes | | | | [address] | [phone] | mellitus ([facility]); AMARA | | | | Physician's | | (obstructive sleep | | | | Pavilion | | apnea); Morbid | | | | Physician's Pavilion | | obesity ([facility]); | | | | [place], [place] | | Edema; GERD | | | | [address] | | (gastroesophageal | | | | [phone] | | reflux disease) | +--------+---------+ + [...] Goodrich DO Referring physician: Kathy Feldman, KALYAN [address] [place] [address] HPI: Dylan is a 38 y.o. female [...] 9 CREATININE PLASMA (LAB) 0.71 EGFR - CYMRO >60 EGFR NON -CYMRO >60 GLUCOSE, PLASMA (LAB) 113 (H) CALCIUM, [...] [place] | | | | | | [address] | | | | | | [phone] | | | | | | | | +--------+ + + + + | 06/24/ | Surgery | Surgery | Chilo | OPEN VENTRAL HERNIA | | 2018 | | | MD Demond Recinos | REPAIR WITH | | | | | [address] | BIOLOGICAL MESH | | | | | [place], [place] | | | | | | [address] | | | | | | [phone] | | | | | | | | +--------+ + + + + | 06/30/ | Office | Cardiology | Randell Franks, | | | 2019 | Visit | | [address] | | | | | | [place], [place] | | | | | | [address] | | | | | | [phone] | | | | | | | [...] | | PDT | type 2) ([facility]) | results section. | + +--------+ + + + | [place] COLLECTION | Routin | 04/14/2013 | DM type 2 | | | CAPILLARY BLOOD | e | 11:08 AM | (diabetes mellitus, | | | SPECIMEN | | PDT | type 2) ([facility]) | | + +--------+ + [...] AMES | [address] | [place], [place] | | | [place] POINT OF CARE | [address] | [address] | | | TESTS | | | | + + + + + documented in this encounter Visit Diagnoses + + | Diagnosis | + + | DM type 2 (diabetes mellitus, type 2) ([facility]) - Primary Type II or [...] (pediatric) | + + | Morbid obesity ([facility]) Morbid obesity | + + | Edema | + + | GERD (gastroesophageal reflux disease) Esophageal reflux | + + documented in this encounter
--- OUTSIDE RECORDS SUMMARY | ~2019-06-01 | XMS | Encounter Summary ---
Demographics + + + | Address | [address] | | | [place] [address] | + + + | Home Phone [...] [place], [place] | | | | | [address] | | + + + + + | Ellie Vang | ECON | Unknown | | + + + + + Care Team Providers + +------+ + | Care Welder Gas Automatic Name | Role | Phone | [...] | | | | | essential | [address] | [address] | | | | | hypertension | [address], | Ave | | | | | Type II or | [address] | [place], [place] | | | | | unspecified | [place], [place] | [address] | | | | | type | [address] | Phone: | | | | | diabetes | Phone: | [phone] | | | | | mellitus | [phone] | Fax: | | | | | without | Fax: | [phone] | | | | | mention of | [phone] | | | | | | complication [...] 2015 | Visit | Preventive at [facility] | MD [address] | mellitus (HCC) | | | | [address] | Ave [place], [place] | (Primary Dx) | | | | Mailcode: 9A | [address] | | | | | [facility] | [phone] | | | | | and Healing, | | | | | | Building [address] | | | | | | [place], [place] | | | | | | [address] | | | | | | [phone] | | | +--------+---------+ + + + [...] Rd | | | | | | [place] | | | | | | [address] | | | | | | [phone] | | | | | | | | +--------+ + + + + | 06/24/ | Surgery | Surgery | Chilo, | OPEN VENTRAL HERNIA | | 2018 | | | MD Demond Rec[address] | REPAIR WITH | | | | | [address] | BIOLOGICAL MESH | | | | | [place], [place] | | | | | | [address] | | | | | | [phone] | | | | | | | | +--------+ + + + + | 06/30/ | Office | Cardiology | Randell Franks, | | | 2019 | Visit | | [address] | | | | | | [place], [place] | | | | | | [address] | | | | | | [phone] | | | | | | | [...] + + | [facility] | [address] [facility] [address] | [place] [address] | | | SERVICES, CORE [...] | + + + + + | [facility] | [address] | [place] [address] | | | SERVICES, SPECIAL | CLARENCE [...]
--- OUTSIDE RECORDS SUMMARY | ~2019-06-01 | XMS | Encounter Summary ---
Demographics + + + | Address | [address] | | | [place] [address] | + + + | Home Phone [...] [place], [place] | | | | | [address] | | + + + + + | Ellie Vang | ECON | Unknown | | + + + + + Care Team Providers + +------+ + | Care Activated Sludge Operator Name | Role | Phone | [...] | | 2014 | | Center at [facility] [address] | [facility] [address] | Review (Pre-surgery | | | | [address] | Ave [place], [place] | meal plan. To be | | | | Mailcode: Center | [address] | provided to home | | | | for Health and | | health nurse. ) | | | | [facility], [address] | | | | | | [place], [place] | | | | | | [address] | | | | | | | [...] | | | | | | [place], [place] | | | | | | [address] | | | | | | [phone] | | | | | | | | +--------+ + + + + | 06/24/ | Surgery | Surgery | Chilo, | OPEN VENTRAL HERNIA | | 2018 | | | MD Jorje [address] | REPAIR WITH | | | | | [address] | BIOLOGICAL MESH | | | | | [place] | | | | | | [address] | | | | | | [phone] | | | | | | | | +--------+ + + + + | 06/30/ | Office | Cardiology | Randell Franks, | | | 2018 | Visit | | [address] | | | | | | [place] | | | | | | [address] | | | | | | [phone] | | | | | | | | +--------+ + + + + documented as of this encounter Visit Diagnoses Not on filedocumented in this encounter"
--- OUTSIDE RECORDS SUMMARY | ~2019-06-01 | XMS | Encounter Summary ---
Demographics + + + | Address | [address] | | | [place] [address] | + + + | Home Phone [...] [place], [place] | | | | | [address] | | + + + + + | Ellie Vang | ECON | Unknown | | + + + + + Care Team Providers + +------+ + | Care Permastone Installer Name | Role | Phone | [...] | Event | [facility] | [address] | | | | | Admitting Desk | [address] | | | | | Located on the | [place], [place] | | | | | [facility] [address] | [address] | | | | | [address] | [phone] | | | | | [place], [place] | | | | | | [address] | | | +--------+ + + + [...] - | Endotracheal Tube (ETT); 7 | Aeljandrina Bradley RN | Evens Dean RN | [...] - | abdomen; 05/14/17 (Automatic | Luanne Bnoilla RN | Discontinued After | | [address] [...] Rd | | | | | | [place], [place] | | | | | | [address] | | | | | | [phone] | | | | | | | | +--------+ + + + + | 06/24/ | Surgery | Surgery | Chilo, | OPEN VENTRAL HERNIA | | 2018 | | | MD Jorje [address] | REPAIR WITH | | | | | [address] | BIOLOGICAL MESH | | | | | [place], [place] | | | | | | [address] | | | | | | [phone] | | | | | | | | +--------+ + + + + | 06/30/ | Office | Cardiology | Randell Franks, | | | 2018 | Visit | | [address] | | | | | | [place], [place] | | | | | | [address] | | | | | | [phone] | | | | | | | [...]
--- OUTSIDE RECORDS SUMMARY | ~2019-06-01 | XMS | Encounter Summary ---
Demographics + + + | Address | [address] | | | [place] [address] | + + + | Home Phone [...] [place], [place] | | | | | [address] | | + + + + + | Ellie Vang | ECON | Unknown | | + + + + + Care Team Providers + +------+ + | Care Senior Product Marketing Manager Name | Role | Phone [...] Medical Records | | 2018 | | [place] [address] | [address] | Review | | | | Ave Mailcode: [address] | [place], [place] | | | | | [facility] | [address] | | | | | and [place], | [phone] | | | | | [place] [address] | | | | | | Floor [place], [place] | | | | | | [address] | | | | | | [phone] | | | +--------+ + + + [...] [place] | | | | | | [address] | | | | | | [phone] | | | | | | | | +--------+ + + + + | 06/24/ | Surgery | Surgery | Chilo | OPEN VENTRAL HERNIA | | 2018 | | | MD Demond [address] | REPAIR WITH | | | | | [address] | BIOLOGICAL MESH | | | | | [place], [place] | | | | | | [address] | | | | | | [phone] | | | | | | | | +--------+ + + + + | 06/30/ | Office | Cardiology | Randell Franks, | | | 2019 | Visit | | [address] | | | | | | [place], [place] | | | | | | [address] | | | | | | [phone] | | | | | | | | +--------+ + + + + documented as of this encounter Visit Diagnoses Not on filedocumented in this encounter"
--- OUTSIDE RECORDS SUMMARY | ~2019-06-01 | XMS | Encounter Summary ---
Demographics + + + | Address | [address] | | | [place] [address] | + + + | Home Phone [...] [place], [place] | | | | | [address] | | + + + + + | Ellie Vang | ECON | Unknown | | + + + + + Care Team Providers + +------+ + | Care Rocket Engine Mechanic Name | Role | Phone [...] | | 2014 | | Center at [facility] [address] | [facility] [address] | | | | | [address] | [place], [place] | | | | | Mailcode: Center | [address] | | | | | for Health and | | | | | | [place] [address] | | | | | | [place], [place] | | | | | | [address] | | | | | | [phone] | | | +--------+ + + + [...] [place] | | | | | | [address] | | | | | | [phone] | | | | | | | | +--------+ + + + + | 06/24/ | Surgery | Surgery | Chilo, | OPEN VENTRAL HERNIA | | 2018 | | | MD [address] | REPAIR WITH | | | | | [address] | BIOLOGICAL MESH | | | | | [place], [place] | | | | | | [address] | | | | | | [phone] | | | | | | | | +--------+ + + + + | 06/30/ | Office | Cardiology | Tiny, Randell, | | | 2019 | Visit | | [address] | | | | | | [place] | | | | | | [address] | | | | | | [phone] | | | | | | | | +--------+ + + + + documented as of this encounter Visit Diagnoses Not on filedocumented in this encounter"
--- OUTSIDE RECORDS SUMMARY | ~2019-06-01 | XMS | Clinical Summary ---
Demographics + + + | Address | [address] | | | [place] [address] | + + + | Home Phone [...] + | Author | [facility] (Historical as of | | | 03-12-19) | + + + | Organization | [facility] (Historical as of | | | 03-12-19) [...] + +------+ + | Care Vice President Marketing & Development Name | Role | Phone | [...] | | | Activ | | ([place]ISDOL) [address] | mouth twice a week. | | [...] | obesity, she is enrolled in the [facility] bariatric program. She has | | [...] Torsemide 100mg Q12hrs | | started in [place] and her weight been stable sinceShe has no | | other complaints.She is pending to see NephrologistCiriloo | | 02/16/2016([facility])- Normal LV systolic function, mildly | [...] +------+-------+ + | MEDICAID | [place] | [id number] | | | [address] | | | N | | | | [place] | | | [place] | | | | [address] | | | [employer] | | | | | + +--------+ [...] | | | mireya | | | [address] | [address] | + +--------+ +--------+ + +
--- OUTSIDE RECORDS SUMMARY | ~2019-06-01 | XMS | Encounter Summary ---
Demographics + + + | Address | [address] | | | [place] [address] | + + + | Home Phone [...] [place], [place] | | | | | [address] | | + + + + + | Ellie Vang | ECON | Unknown | | + + + + + Care Team Providers + +------+ + | Care Agronomy Professor Name | Role | Phone | [...] | | | | | obstruction | [place], | Mailcode: | | | | | or gangrene | [place] | Center for | | | | | Abdominal | [address] | Health and | | | | | pain, | Phone: | Healing, | | | | | unspecified | | [address] 2 | | | | | abdominal | Fax: | [place], [place] | | | | | location | [phone] | [address] | | | | | Procedures | | Phone: | | | | | CONSULT TO | | [phone] | | | | | SURGERY - | | Fax: | | | | | GENERAL | | [phone] | + +--------+ + + + + [...] | | [address] | Ave [place], [place] | | | | | Mailcode: [place] | [address] | | | | | for Health and | | | | | | [facility], [facility] 2 | | | | | | [facility] [place] | | | | | | [address] | | | | | | | [...] Rd | | | | | | [place], [place] | | | | | | [address] | | | | | | [phone] | | | | | | | | +--------+ + + + + | 06/24/ | Surgery | Surgery | Chilo | OPEN VENTRAL HERNIA | | 2018 | | | MD Demond Rec[address] | REPAIR WITH | | | | | [address] | BIOLOGICAL MESH | | | | | [facility] [place] | | | | | | [address] | | | | | | [phone] | | | | | | | | +--------+ + + + + | 06/30/ | Office | Cardiology | Randell Franks, | | | 2018 | Visit | | [address] | | | | | | [place], [place] | | | | | | [address] | | | | | | [phone] | | | | | | | [...]
--- OUTSIDE RECORDS SUMMARY | ~2019-06-01 | XMS | Encounter Summary ---
Demographics + + + | Address | [address] | | | [place] [address] | + + + | Home Phone [...] [place], [place] | | | | | [address] | | + + + + + | Ellie Vang | ECON | Unknown | | + + + + + Care Team Providers + +------+ + | Care Mold Bunch Trimmer Name | Role | Phone | + +------+ + | Fadi Goodrich DO | PCP | | + +------+ + Encounter Details +--------+ + + + + | Date | Type | Department | Care Team | Description | +--------+ + + + + | 10/27/ | Telephone | [facility] at [facility] | Leslie Mistry, | | | 2017 | | Floor [address] | PhD [address] [facility] | | | | | [address] Mailcode: | [address] | | | | | CH15P [place], [place] | | | | | Health and Healing, | [address] | | | | | [facility] | [phone] | | | | | Floor [place], [place] | | | | | | [address] | | | | | | [phone] | | | +--------+ + + + [...] Rd | | | | | | [place], [place] | | | | | | [address] | | | | | | [phone] | | | | | | | | +--------+ + + + + | 06/24/ | Surgery | Surgery | Chilo, | OPEN VENTRAL HERNIA | | 2018 | | | MD Jorje [address] | REPAIR WITH | | | | | [address] | BIOLOGICAL MESH | | | | | [place], [place] | | | | | | [address] | | | | | | [phone] | | | | | | | | +--------+ + + + + | 06/30/ | Office | Cardiology | Randell Franks, | | | 2018 | Visit | | MD [address] | | | | | | Ave [place], [place] | | | | | | [address] | | | | | | [phone] | | | | | | | | +--------+ + + + + documented as of this encounter Visit Diagnoses Not on filedocumented in this encounter"
--- OUTSIDE RECORDS SUMMARY | ~2019-06-01 | XMS | Encounter Summary ---
Demographics + + + | Address | [address] | | | [place] [address] | + + + | Home Phone [...] [place], [place] | | | | | [address] | | + + + + + | Ellie Vang | ECON | Unknown | | + + + + + Care Team Providers + +------+ + | Care Web Content Executive Name | Role | Phone | [...] | | | | | | | [place], [place] | | | | | | | [address] | | | | | | | Phone: | | | | | | | [phone] | | | | | | | Fax: | | | | | | | [phone] | +--------+--------+ + + + + Encounter [...] | | [address] | [facility] [place] | Dx) | | | | Mailcode: L223A | [address] | | | | | [facility] | [phone] | | | | | [address] [facility] [place] | | | | | | [address] | | | | | | [phone] | | | +--------+---------+ + + + [...] MD,MPH - 11/05/2015 2:09 PM PDT [facility] Department of Surgery EGS/TRAUMA Surgery [...] 500 mg by mouth once daily. CALCIUM CRB&SEI-[id number]-GENIS ORAL Take 1 tablet by mouth two [...] were answered. Christian Rocha MD MPH FACS [facility] water softener servicer and installer Trauma, Critical Care & Acute Care Surgery [facility] [place] [phone] documented in thi s encounter Plan of [...] Rd | | | | | | [place], [place] | | | | | | [address] | | | | | | [phone] | | | | | | | | +--------+ + + + + | 06/24/ | Surgery | Surgery | Chilo, | OPEN VENTRAL HERNIA | | 2018 | | | MD Demond [address] | REPAIR WITH | | | | | [address] | BIOLOGICAL MESH | | | | | [place], [place] | | | | | | [address] | | | | | | [phone] | | | | | | | | +--------+ + + + + | 06/30/ | Office | Cardiology | Randell Franks, | | | 2018 | Visit | | MD [address] | | | | | | Ave [place], [place] | | | | | | [address] | | | | | | [phone] | | | | | | | | +--------+ + + + + documented as of this encounter Visit Diagnoses + + | Diagnosis | + + | Ventral hernia without obstruction or gangrene - Primary Ventral hernia, unspecified, | | without mention of obstruction or gangrene | + + documented in this encounter"
--- OUTSIDE RECORDS SUMMARY | ~2019-06-01 | XMS | Encounter Summary ---
Demographics + + + | Address | [address] | | | [place] [address] | + + + | Home Phone [...] [place], [place] | | | | | [address] | | + + + + + | Ellie Vang | ECON | Unknown | | + + + + + Care Team Providers + +------+ + | Care Draw Frame Tender Name | Role | Phone | [...] | | | without | [place] | [address] | | | | | mention of | | Phone: | | | | | obstruction | | [phone] | | | | | or gangrene | | Fax: | | | | | | | [phone] | +--------+--------+ + + + + Encounter [...] | [facility] [address] | [address] | Hernia | | | | [address] | [place], [place] | | | | | Mailcode: L223A | [address] | | | | | [facility] | [phone] | | | | | [address] [place], [place] | | | | | | [address] | | | | | | [phone] | | | +--------+---------+ + + + [...] fine, afebrile. Abdominal exam is completely benign. Gm are still in, And wound is healed. [place] removed. Drainage is serous, very slight sanguinous. No eviden ce of deep subcutaneous infection. Abdominal wall currently intact. Drain site OK. Assessment/Plan: Satisfactory course following primary repair of incarcerated umbilical he rnia. Pt. Wants to obtain care, including drain removal and diabetic care in [place], so I have referred her to her [...] Rd | | | | | | [place], [place] | | | | | | [address] | | | | | | [phone] | | | | | | | | +--------+ + + + + | 06/24/ | Surgery | Surgery | Chilo, | OPEN VENTRAL HERNIA | | 2018 | | | MD Jorje [address] | REPAIR WITH | | | | | [address] | BIOLOGICAL MESH | | | | | [place], [place] | | | | | | [address] | | | | | | [phone] | | | | | | | | +--------+ + + + + | 06/30/ | Office | Cardiology | Randell Franks, | | | 2018 | Visit Analisa Hauser MD [address] | | | | | | [place], [place] | | | | | | [address] | | | | | | [phone] | | | | | | | [...]
--- OUTSIDE RECORDS SUMMARY | ~2019-06-01 | XMS | Encounter Summary ---
Demographics + + + | Address | [address] | | | [place] [address] | + + + | Home Phone [...] [place], [place] | | | | | [address] | | + + + + + | Ellie Vang | ECON | Unknown | | + + + + + Care Team Providers + +------+ + | Care Product Development Engineer Name | Role | Phone | [...] | Preventive at [facility] | [address] | (PHENTERMINE 37.5 mg | | | | [address] | [place], [place] | ) | | | | Mailcode: LATRELL | [address] | | | | | [facility] | [phone] | | | | | and [address], | | | | | | [address] | | | | | | [place], [place] | | | | | | [address] | | | | | | [phone] | | | +--------+--------+ + + + [...] Rd | | | | | | [place], [place] | | | | | | [address] | | | | | | [phone] | | | | | | | | +--------+ + + + + | 06/24/ | Surgery | Surgery | Chilo, | OPEN VENTRAL HERNIA | | 2018 | | | MD Jorje [address] | REPAIR WITH | | | | | [address] | BIOLOGICAL MESH | | | | | [place], [place] | | | | | | [address] | | | | | | [phone] | | | | | | | | +--------+ + + + + | 06/30/ | Office | Cardiology | Randell Franks, | | | 2018 | Visit | | [address] | | | | | | [place], [place] | | | | | | [address] | | | | | | [phone] | | | | | | | | +--------+ + + + + documented as of this encounter Visit Diagnoses Not on filedocumented in this encounter"
--- OUTSIDE RECORDS SUMMARY | ~2019-06-01 | XMS | Encounter Summary ---
Demographics + + + | Address | [address] | | | [place] [address] | + + + | Home Phone [...] [place], [place] | | | | | [address] | | + + + + + | Ellie Vang | ECON | Unknown | | + + + + + Care Team Providers + +------+ + | Care Learning Consultant Name | Role | Phone | [...] [facility] | MD [address] | | | | | [address] | Ave [place], [place] | | | | | Mailcode: 9A | [address] | | | | | [facility] | [phone] | | | | | and [address], | | | | | | [address] | | | | | | [place], [place] | | | | | | [address] | | | | | | [phone] | | | +--------+--------+ + + + [...] Rd | | | | | | [place], [place] | | | | | | [address] | | | | | | [phone] | | | | | | | | +--------+ + + + + | 06/24/ | Surgery | Surgery | Chilo, | OPEN VENTRAL HERNIA | | 2018 | | | MD Demond [address] | REPAIR WITH | | | | | [address] | BIOLOGICAL MESH | | | | | [place], [place] | | | | | | [address] | | | | | | [phone] | | | | | | | | +--------+ + + + + | 06/30/ | Office | Cardiology | Randell Franks, | | | 2019 | Visit | | MD [address] | | | | | | [place] | | | | | | [address] | | | | | | [phone] | | | | | | | | +--------+ + + + + documented as of this encounter Visit Diagnoses Not on filedocumented in this encounter"
--- OUTSIDE RECORDS SUMMARY | ~2019-06-01 | XMS | Encounter Summary ---
Demographics + + + | Address | [address] | | | [place] [address] | + + + | Home Phone [...] [place], [place] | | | | | [address] | | + + + + + | Ellie Vang | ECON | Unknown | | + + + + + Care Team Providers + +------+ + | Care Staple Fiber Washer Name | Role | Phone | [...] | | | | | essential | [address] | [address] | | | | | hypertension | [address], | Ave | | | | | Type II or | [address] | [place], [place] | | | | | unspecified | [place] | [address] | | | | | type | [address] | Phone: | | | | | diabetes | Phone: | [phone] | | | | | mellitus | [phone] | Fax: | | | | | without | Fax: | [phone] | | | | | mention of | [phone] | | | | | | complication [...] | 2013 | Visit | Preventive at [facility] | [address] | mellitus (HCC) | | | | [address] | Ave [place], [place] | (Primary Dx) | | | | Mailcode: CH9A | [address] | | | | | [facility] | [phone] | | | | | and [address], | | | | | | [address] | | | | | | [place], [place] | | | | | | [address] | | | | | | [phone] | | | +--------+---------+ + + + [...] Wi ll discuss with Dr. 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 her best strategies for meeting weight loss [...] Rd | | | | | | [place], [place] | | | | | | [address] | | | | | | [phone] | | | | | | | | +--------+ + + + + | 06/24/ | Surgery | Surgery | Chilo | OPEN VENTRAL HERNIA | | 2018 | | | MD Demond [address] | REPAIR WITH | | | | | [address] | BIOLOGICAL MESH | | | | | [place], [place] | | | | | | [address] | | | | | | [phone] | | | | | | | | +--------+ + + + + | 06/30/ | Office | Cardiology | Randell Franks, | | | 2019 | Visit | | [address] | | | | | | [place] [facility] [place] | | | | | | [address] | | | | | | [phone] | | | | | | | [...] [facility] | [address] | [place] [address] | | | SERVICES, SPECIAL | PARK [...]
--- OUTSIDE RECORDS SUMMARY | ~2019-06-01 | XMS | Encounter Summary ---
Demographics + + + | Address | [address] | | | [place] [address] | + + + | Home Phone [...] [place], [place] | | | | | [address] | | + + + + + | Ellie Vang | ECON | Unknown | | + + + + + Care Team Providers + +------+ + | Care Acquisition Editor Name | Role | Phone | [...] | [facility] | [facility] | | | | | [address] | [place], [place] | | | | | Mail Code: OC8PM | [address] | | | | | [facility] | [phone] | | | | | and Healing, | | | | | | [address] | | | | | | [place], [place] | | | | | | [address] | | | | | | [phone] | | | +--------+ + + + [...] Rd | | | | | | [place] | | | | | | [address] | | | | | | [phone] | | | | | | | | +--------+ + + + + | 06/24/ | Surgery | Surgery | Chilo | OPEN VENTRAL HERNIA | | 2018 | | | MD [address] | REPAIR WITH | | | | | [address] | BIOLOGICAL MESH | | | | | [place], [place] | | | | | | [address] | | | | | | [phone] | | | | | | | | +--------+ + + + + | 06/30/ | Office | Cardiology | Randell Franks, | | | 2019 | Visit | | MD [address] | | | | | | [place], [place] | | | | | | [address] | | | | | | [phone] | | | | | | | | +--------+ + + + + documented as of this encounter Visit Diagnoses Not on filedocumented in this encounter"
--- OUTSIDE RECORDS SUMMARY | ~2019-06-01 | XMS | Encounter Summary ---
Demographics + + + | Address | [address] | | | [place] [address] | + + + | Home Phone [...] [place], [place] | | | | | [address] | | + + + + + | Ellie Vang | ECON | Unknown | | + + + + + Care Team Providers + +------+ + | Care Documentation Specialist Name | Role | Phone | [...] | | 2019 | | Center at [facility] [address] | MD Jor[address] | | | | [address] | [address] | | | | | Mailcode: Center | [place], [place] | | | | | [facility] and | [address] | | | | | [facility] 2 | [phone] | | | | | [place], [place] | | | | | | [address] | | | | | | [phone] | | | +--------+ + + + [...] Rd | | | | | | [place], [place] | | | | | | [address] | | | | | | [phone] | | | | | | | | +--------+ + + + + | 06/24/ | Surgery | Surgery | Chilo, | OPEN VENTRAL HERNIA | | 2018 | | | MD Jorje [address] | REPAIR WITH | | | | | [address] | BIOLOGICAL MESH | | | | | [place], [place] | | | | | | [address] | | | | | | [phone] | | | | | | | | +--------+ + + + + | 06/30/ | Office | Cardiology | Randell Franks, | | | 2018 | Visit | | [address] | | | | | | [place], [place] | | | | | | [address] | | | | | | [phone] | | | | | | | | +--------+ + + + + documented as of this encounter Visit Diagnoses Not on filedocumented in this encounter"
--- OUTSIDE RECORDS SUMMARY | ~2019-06-01 | XMS | Encounter Summary ---
Demographics + + + | Address | [address] | | | [place] [address] | + + + | Home Phone [...] [place], [place] | | | | | [address] | | + + + + + | Ellie Vang | ECON | Unknown | | + + + + + Care Team Providers + +------+ + | Care Chapter Relations Administrator Name | Role | Phone | [...] Diabetes & | Morbid | Kathy M, CHEMICAL SALES REPRESENTATIVE | [address] | | | | Metabolism | obesity | [address] | [address] | | | | | ([facility]) | [address], | [address] | | | | | Procedures | [address] | Physician's | | | | | CONSULT TO | [place], [place] | Pavilion | | | | | ENDO | [address] | Physician's | | | | | [address] | Phone: | Pavilion | | | | | | [phone] | [place], [place] | | | | | | Fax: | [address] | | | | | | [phone] | Phone: | | | | | | | [phone] | | | | | | | Fax: | | | | | | | [phone] | +--------+--------+ + + + + Encounter [...] | | [facility] | [place], [place] | (Primary Dx); Morbid | | | | Pavilion [address] | [address] | obesity (HCC) | | | | [address] | [phone] | | | | | Physician's | | | | | | Pavilion | | | | | | [facility] | | | | | | [place], [place] | | | | | | [address] | | | | | | [phone] | | | +--------+---------+ + + + [...] Rd | | | | | | [place], [place] | | | | | | [address] | | | | | | [phone] | | | | | | | | +--------+ + + + + | 06/24/ | Surgery | Surgery | Chilo, | OPEN VENTRAL HERNIA | | 2018 | | | MD [address] | REPAIR WITH | | | | | [address] | BIOLOGICAL MESH | | | | | [place], [place] | | | | | | [address] | | | | | | [phone] | | | | | | | | +--------+ + + + + | 06/30/ | Office | Cardiology | Randell Franks, | | | 2018 | Visit | | [address] | | | | | | [place], [place] | | | | | | [address] | | | | | | [phone] | | | | | | | [...]
--- OUTSIDE RECORDS SUMMARY | ~2019-06-01 | XMS | Encounter Summary ---
Demographics + + + | Address | [address] | | | [place] [address] | + + + | Home Phone [...] [place], [place] | | | | | [address] | | + + + + + | Ellie Vang | ECON | Unknown | | + + + + + Care Team Providers + +------+ + | Care Railroader Name | Role | Phone | + +------+ + | Fadi Goodrich DO | PCP | | + +------+ + Encounter Details +--------+------+ + + + | Date | Type | Department | Care Team | Description | +--------+------+ + + + | 08/28/ | Lab | Laboratory at [facility] | | Type 2 diabetes | | 2015 | | [address] | | mellitus (HCC) | | | | [place], [place] | | | | | | [address] | | | | | | [phone] | | | +--------+------+ + + + [...] Rd | | | | | | [place], [place] | | | | | | [address] | | | | | | [phone] | | | | | | | | +--------+ + + + + | 06/24/ | Surgery | Surgery | Chilo, | OPEN VENTRAL HERNIA | | 2018 | | | MD Jorje [address] | REPAIR WITH | | | | | [address] | BIOLOGICAL MESH | | | | | [place], [place] | | | | | | [address] | | | | | | [phone] | | | | | | | | +--------+ + + + + | 06/30/ | Office | Cardiology | Randell Franks, | | | 2018 | Visit | | [address] | | | | | | [place], [place] | | | | | | [address] | | | | | | [phone] | | | | | | | [...] [facility] | [address] [facility] | [place] [address] | | | LYDIA RANGEL | CLARENCE [...] [facility] | [address] | [place] [address] | | | SERVICES, SPECIAL | PARK [...]
--- OUTSIDE RECORDS SUMMARY | ~2019-06-01 | XMS | Encounter Summary ---
Demographics + + + | Address | [address] | | | [place] [address] | + + + | Home Phone [...] [place], [place] | | | | | [address] | | + + + + + | Ellie Vang | ECON | Unknown | | + + + + + Care Team Providers + +------+ + | Care Delivery Rep Name | Role | Phone | [...] | | | | | essential | [address] | [address] | | | | | hypertension | [address], | Ave | | | | | Type II or | [address] | [place], [place] | | | | | unspecified | [place], [place] | [address] | | | | | type | [address] | Phone: | | | | | diabetes | Phone: | [phone] | | | | | mellitus | [phone] | Fax: | | | | | without | Fax: | [phone] | | | | | mention of | [phone] | | | | | | complication [...] [facility] | MD [address] | mellitus (HCC) | | | | [address] | Ave [place], [place] | (Primary Dx) | | | | Mailcode: 9A | [address] | | | | | [facility] | [phone] | | | | | and Healing, | | | | | | [address] | | | | | | [place], [place] | | | | | | [address] | | | | | | [phone] | | | +--------+---------+ + + + [...] Rd | | | | | | [place] | | | | | | [address] | | | | | | [phone] | | | | | | | | +--------+ + + + + | 06/24/ | Surgery | Surgery | Chilo, | OPEN VENTRAL HERNIA | | 2018 | | | MD [address] | REPAIR WITH | | | | | [address] | BIOLOGICAL MESH | | | | | [place], [place] | | | | | | [address] | | | | | | [phone] | | | | | | | | +--------+ + + + + | 06/30/ | Office | Cardiology | Randell Franks, | | | 2019 | Visit | | [address] | | | | | | [place], [place] | | | | | | [address] | | | | | | [phone] | | | | | | | [...] | [facility] | [address] [facility] | [place] [address] | | | SERVICES, CORE | PARK [...] | + + + + + | Freenom | [address] | [place] [address] | | | SERVICES, SPECIAL | CLARENCE [...]
--- OUTSIDE RECORDS SUMMARY | ~2019-06-01 | XMS | Encounter Summary ---
Demographics + + + | Address | [address] | | | [place] [address] | + + + | Home Phone [...] Team Providers + +------+ + | Care Secretary Receptionist Name | Role | Phone | [...] | | | 2014 | Event | [facility] | MD Raza [address] | | | | | Admitting Desk | [address] | | | | | Located on the 9 | [place], [place] | | | | | floor [address] | [address] | | | | | [address] | [phone] | | | | | [place], [place] | | | | | | [address] | Marcial Brunner CRNA | | | | | | [address] | | | | | | [place], | | | | | | [place] [address] | | | | | | [phone] | | | | | | | [...] Rd | | | | | | [place], [place] | | | | | | [address] | | | | | | [phone] | | | | | | | | +--------+ + + + + | 06/24/ | Surgery | Surgery | Chilo, | OPEN VENTRAL HERNIA | | 2018 | | | MD [address]je [address] | REPAIR WITH | | | | | [address] | BIOLOGICAL MESH | | | | | [place], [place] | | | | | | [address] | | | | | | [phone] | | | | | | | | +--------+ + + + + | 06/30/ | Office | Cardiology | Randell Franks, | | | 2018 | Visit | | [address] | | | | | | [place], [place] | | | | | | [address] | | | | | | [phone] | | | | | | | [...]
--- OUTSIDE RECORDS SUMMARY | ~2019-06-01 | XMS | Encounter Summary ---
Demographics + + + | Address | [address] | | | [place] [address] | + + + | Home Phone [...] [place], [place] | | | | | [address] | | + + + + + [...] | | | | | | [place] [address] | | | +--------+ + + + [...] Rd | | | | | | [place], [place] | | | | | | [address] | | | | | | [phone] | | | | | | | | +--------+ + + + + | 06/24/ | Surgery | Surgery | Chilo, | OPEN VENTRAL HERNIA | | 2019 | | | MD Jorje [address] | REPAIR WITH | | | | | [address] | BIOLOGICAL MESH | | | | | [place] | | | | | | [address] | | | | | | [phone] | | | | | | | | +--------+ + + + + | 06/30/ | Office | Cardiology | Randell Franks, | | | 2018 | Visit | | [address] | | | | | | [place] | | | | | | [address] | | | | | | [phone] | | | | | | | | +--------+ + + + + documented as of this encounter Visit Diagnoses Not on filedocumented in this encounter"
--- OUTSIDE RECORDS SUMMARY | ~2019-06-01 | XMS | Encounter Summary ---
Demographics + + + | Address | [address] | | | [place] [address] | + + + | Home Phone [...] [place], [place] | | | | | [address] | | + + + + + | Ellie Vang | ECON | Unknown | | + + + + + Care Team Providers + +------+ + | Care Machine Sign Writer Name | Role | Phone | [...] the | | | | | | [facility] [address] [facility] | | | | | | [facility] | | | | | | [place], [place] | | | | | | [address] | | | +--------+ + + + [...] Rd | | | | | | [place], [place] | | | | | | [address] | | | | | | [phone] | | | | | | | [...] [place] | | | | | | [address] | | | | | | [phone] | | | | | | | | +--------+ + + + + | 06/30/ | Office | Cardiology | Randell Franks, | | | 2018 | Visit | Analisa CARVAJAL [address] | | | | | | [address] [place], [place] | | | | | | [address] | | | | | | [phone] | | | | | | | | +--------+ + + + + documented as of this encounter Visit Diagnoses Not on filedocumented in this encounter"
--- OUTSIDE RECORDS SUMMARY | ~2019-06-01 | XMS | Encounter Summary ---
Demographics + + + | Address | [address] | | | [place] [address] | + + + | Home Phone [...] [place], [place] | | | | | [address] | | + + + + + | Ellie Vang | ECON | Unknown | | + + + + + Care Team Providers + +------+ + | Care Locomotive Inspector Name | Role | Phone | [...] [address] | | | | | | [place], [place] | | | | | | [address] | | | | | | [phone] | | | | | | | | +--------+ + + + + | 06/24/ | Surgery | Surgery | Chilo, | OPEN VENTRAL HERNIA | | 2018 | | | MD Jorje [phone] | REPAIR WITH | | | | | [address] | BIOLOGICAL MESH | | | | | [place], [place] | | | | | | [address] | | | | | | [phone] | | | | | | | | +--------+ + + + + | 06/30/ | Office | Cardiology | Randell Franks, | | | 2018 | Visit | | [address] | | | | | | [place], [place] | | | | | | [address] | | | | | | [phone] | | | | | | | | +--------+ + + + + documented as of this encounter Visit Diagnoses Not on filedocumented in this encounter"
--- OUTSIDE RECORDS SUMMARY | ~2019-06-01 | XMS | Encounter Summary ---
Demographics + + + | Address | [address] | | | [place] [address] | + + + | Home Phone [...] [place], [place] | | | | | [address] | | + + + + + | Ellie Vang | ECON | Unknown | | + + + + + Care Team Providers + +------+ + | Care School Lunch Manager Name | Role | Phone | [...] | (Primary Dx) | | | | [facility] [place] | [facility] [address] | | | | | [address] | [place], [place] | | | | | Mail Code: OC8PM | [address] | | | | | [facility] | [phone] | | | | | and Healing, | | | | | | Building [address] | | | | | | [place], [place] | | | | | | [address] | | | | | | [phone] | | | +--------+---------+ + + + [...] or walk. Surgery check-in location: Admitting - [facility], ninth floor lobby Surgery Check in [...] it is after office hours, call the [facility] do all operator at [phone] and ask them to page him or [...] d function per TTE ( 02/16/2017) [facility]: Improved and stable. T2DM - controlled with [...] renal failure no electrolyte abnormalities no dialysis Urology/Wallpaper Embosser Helper: Within Defined Limits except as noted below [...] mg by mouth two times daily. CALCIUM CRB&MUV-S8-VRV68-GENIS ORAL Take 2 tablets by mouth two [...] Dr. Andie Brian Incisional hernia repair 03/01/2015 [facility]/ Dr. Cantu. Primary fascial closure and [...] 98ms, QTC 460ms, TTE ( 02/16/2017) - [facility] 1. Overall left ventricular systolic function is normal with, an EF between 60 - 65 %. 2. The right ventricle is normal in size and function. 3. No significant valvular abnormalities are noted. 4. In comparison to the previous (technically difficult) echocardiographic study done 01/01, no signfiicant changes are noted. TTE (02/17/2016) - [employer] Conclusions 1. There is normal left ventricular [...] and resp iratory change. TTE (11/07/2015) - [facility] Final Impressions: 1. The interpretation of [...] d function per TTE ( 02/16/2017) form [facility]. Improved and stable. - Confirmed with Dr. [...] Advised to bring her own apparatus for [facility]. GERD - On omeprazole. Chronic Fluid retention [...] to this patient's care. Gay Hoff, ERENDIRA,ANP [facility] P[facility] PREOPERATIVE MEDICINE CLINIC AT [facility] 4TH FLOOR [address] [facility] [address] I spent time (45 minutes, [...] Rd | | | | | | [place], [place] | | | | | | [address] | | | | | | [phone] | | | | | | | | +--------+ + + + + | 06/24/ | Surgery | Surgery | Chilo, | OPEN VENTRAL HERNIA | | 2018 | | | MD [address] | REPAIR WITH | | | | | [address] | BIOLOGICAL MESH | | | | | [place], [place] | | | | | | [address] | | | | | | [phone] | | | | | | | | +--------+ + + + + | 06/30/ | Office | Cardiology | Randell Franks, | | | 2018 | Visit | | MD [address] | | | | | | Ave [place], [place] | | | | | | [address] | | | | | | [phone] | | | | | | | [...] +--------+ + + + | [place] COLLECTION VENOUS | Routin | 02/22/2018 | [...] | [facility] | [address] | [place] [address] | | | SERVICES, CORE | CLARENCE [...] LABORATORY | [address] | [place] [address] | | | SERVICES, | [address] [...] [facility] | [address] | [place] [address] | | | SERVICES, | [address] [...] | [facility] | | considered for monitoring mcfp glycemic control in patients with: | LABORATORY [...] | [address] | [place] [address] | | | SERVICES, SPECIAL | CLARENCE [...] HOSPITAL LABORATORY | [address] | [place] [address] | | | CLAIRE, LYDIA | CLARENCE [...] DEPT OF | [address] | [place], [place] | | | CARDIOLOGY | [address] | [address] | | + + + + + documented in this encounter Visit Diagnoses + + | Diagnosis | + + | Preop examination - Primary Preoperative examination, unspecified | + + documented in this encounter
--- OUTSIDE RECORDS SUMMARY | ~2019-06-01 | XMS | Encounter Summary ---
Demographics + + + | Address | [address] | | | [place] [address] | + + + | Home Phone [...] [place], [place] | | | | | [address] | | + + + + + | Ellie Vang | ECON | Unknown | | + + + + + Care Team Providers + +------+ + | Care Automobile Lights Assembler Name | Role | Phone | [...] (HCC); | | | | at [facility] 3rd Floor | | Cholecystitis | | | | [address] | | | | | | [place], | | | | | | [place] [address] | | | | | | [phone] | | | +--------+------+ + + + [...] Rd | | | | | | [place], [place] | | | | | | [address] | | | | | | [phone] | | | | | | | | +--------+ + + + + | 06/24/ | Surgery | Surgery | Chilo, | OPEN VENTRAL HERNIA | | 2018 | | | MD Jorje [address] | REPAIR WITH | | | | | [address] | BIOLOGICAL MESH | | | | | [place], [place] | | | | | | [address] | | | | | | [phone] | | | | | | | | +--------+ + + + + | 06/30/ | Office | Cardiology | Randell Franks, | | | 2018 | Visit | | [address] | | | | | | Ave [place], [place] | | | | | | [address] | | | | | | [phone] | | | | | | | [...] + + | [facility] | [address] | [place] [address] | | | SERVICES, CORE | CLARENCE [...] [facility] | [address] | [place] [address] | | | CLAIRE [facility] | [address] [...] (H)Comment: Hbg A1c | <5.7 % | [facility] | | | A1C [...] NKECHI ROBERTS | [address] | [place] [address] | | | SERVICES, SPECIAL | PARK [...]
--- OUTSIDE RECORDS SUMMARY | ~2019-06-01 | XMS | Encounter Summary ---
Demographics + + + | Address | [address] | | | [place] [address] | + + + | Home Phone [...] [facility] | | | and Jeffana | + + + | Organization | [facility] | | | and [...] Team Providers + +------+ + | Care Recruiting Specialist Name | Role | Phone | [...] | Services | Disease | Chronic | [facility] | | | Required | | diastolic | SUPERVISOR PRINTING AND STAMPING [address] | SLEEP | | | | | heart | GOADALIDS | DISORDERS LAB | | | | | failure | DMITRI F | [address] | | | | | (HCC) | [address] | [address] | | | | | History of | [address] | [place], [place] | | | | | sinus | Phone: | [phone] | | | | | tachycardia | [phone] | Phone: | | | | | History of | Fax: | [phone] | | | | | bariatric | [phone] | Fax: | | | | | surgery | | [phone] | | | | | Sleep apnea [...] + + | 04/28/ | Office | [facility] | Sulema Altamirano | Chronic diastolic | | 2019 | Visit | CARDIOLOGY [place] | [address] | heart failure (HCC) | | | | [address] | [place] RICHEY | (Primary Dx); | | | | [address] | [place] [address] | History of sinus | | | | [place] | [phone] | tachycardia; History | | | | [address] | | of stroke; HTN, | | | | [phone] | | goal below 130/80; | | [...] have referred you to Dr. Rascon at [facility] , call [phone] for an appointment next week I made [...] dysfunction with previous dysfunctional RV treated at [facility] with diuresis and hospitalization for one month., sleep apnea treated with BiPAP, t ype II diabetes, hypothyroidism, morbid obesity with alveolar hypoventilation, Frandy-en-Y ga stric bypass surgery 02/2018, osteoarthritis,DVT and PE 2016, hypokalemia and hyperuricemia which is being followed by sawing and assembly supervisor Dr. Fu, and SELINA Escobar. Her current [...] surgery, and weight down 123 pounds since [facility] 2017 when weighed 394 lbs. She [...] hypothyroidism,followed by Dr. Franks, endocrin ologist at [facility]) . Denies excessive thirst or [...] knee pain and hernia pain Lives in [facility] her mother who smokes. . Sister is animal daycare provider. Grandchildren ages 4 and 7 live with he r daughter and son-in-law. Disabled , on disability .01/24/2019: working with [employer] to get her own place. Outpatient Medications [...] film Suboxone 2 mg-0.5 mg sublingual film Fhjsgrq-Svsahzuhj-Wjmqxht D (CITRACAL CALCIUM+D PO) Take 2 tablets [...] Pen Needle (NOVOFINE) 32G X 6 MM [facility] Novofine 32 32 gauge x 1/4" needle [...] monohydrate/macrocrystals 100 m g capsule nystatin (NYSTATIN) 193885 UNIT/GM powder Nyamyc 100,000 unit/gram topical powder [...] Take 30 mg by mouth Daily. thyroid (PIPE BLANKS CUT OFF SAW OPERATOR THYROID) 30 mg tablet PIPE BLANKS CUT OFF SAW OPERATOR Thyroid 30 mg tablet TAKE ONE [...] , and aortic arch normal Echo: 01/02/2016 ([facility]): TDS, cardiac chamber dimensions grossly NML, LVEF >70%, rodriguez tolic function normal for patient. Unable to assess segmental wall motion. RV grossly norm al. Aortic valve sclerotic, no As/AI. Mitral and tricuspid valves grossly normal. Trace T R. No pericardial effusion VASCULAR TESTING AND PROCEDURES Left lower extremity DVT, presumed PE: 10/2015 [facility]. treated with heparin drip and Coumadin 10 in hospital, with Coumadin 6 months as outpatient, ASA 81 mg continued Venous US: right leg, 04/28/2016: No evidence of DVT. EKG EKG 10/27: ([facility]) Normal sinus rhythm. Normal EKG. Rate 93 bpm, KY 172 ms, QRS 90 ms, QTC 465 ms personally reviewed by me in the office today) EK02/05: Sinus tachycardia, otherwise normal. Rate 160 bpm, KY 174 ms, QRS 74 ms, QTC 451 ms (personally reviewed by me in the office today and no significant change seen fro m EKG done in October 2016 except for faster heart rate) EK04/26/2018: Normal sinus rhythm, rate 74 bpm, KY 182 ms, QRS 96 ms, QTC 472 ms, alexandru genao personally reviewed by me, and compared to previous EKG, heart rate is now better controll ed, otherwise similar morphology EK04/28/2019: Normal sinus rhythm, right axis. Rate 74 bpm, KY 170 ms, QRS 88 ms, QTC 45 [...] at the [place] [facility] in [place], so I have referred her again to Dr. Rascon at the [place] [facility] clinic, and she ne eds [...] Placed This Encounter Procedures Ambulatory Referral to [facility] Pulmonology- Sleep study as well ECG 12 [...] past surgical history. Problem list. [facility] Cardiology 04/28/2019 documente d in this encounter Plan of Treatment + +--------+ + + | Name | Priori | Associated Diagnoses | Order Schedule | | | ty | | | + +--------+ + + | Ambulatory Referral to [facility] | Routin | Chronic diastolic | Ordered: [...] hypoventilation | | | | | | ([facility]) Type 2 | | | | |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 | | | | | | without | | | | | | complication, with | | | | | | long-term current | | | | | | use of insulin ([facility]) | | | | | | Mixed [...] | | | | | by [facility] Read Only, | | | | | | [facility] ([id number]), | | | | | | online editor Glen Alberto | | | | | | ([id number]) on 04/28/2019 | | | | | [...]
--- OUTSIDE RECORDS SUMMARY | ~2019-06-01 | XMS | Encounter Summary ---
Demographics + + + | Address | [address] | | | [place] [address] | + + + | Home Phone [...] [place], [place] | | | | | [address] | | + + + + + | Ellie Vang | ECON | Unknown | | + + + + + Care Team Providers + +------+ + | Care Absorption And Adsorption Engineer Name | Role | Phone | [...] | | bypass | [place], [place] | [facility] Center | | | | | Nausea and | [address] | for Health | | | | | vomiting, | Phone: | and Healing, | | | | | intractabili | | Building [address] | | | | | ty of | Fax: | [place], [place] | | | | | vomiting not | [phone] | [phone] | | | | | specified, | | Phone: | | | | | unspecified | | [phone] | | | | | vomiting | | Fax: | | | | | type | | [phone] | | | | | Decreased | [...] | | | | | | [place] | | | | | | | UPPER GI | | | | | | | ENDOSCOPY,BI | | | | | | | OPSY [place] UP | | | | | | [...] | | 2017 | | Center at [facility] [address] | MD [address] | | | | | [address] | [place], [place] | | | | | Mailcode: [place] | [address] | | | | | for Health and | | | | | | [address] [address] | | | | | | [place], [place] | | | | | | [address] | | | | | | [phone] | | | +--------+ + + + [...] [place] | | | | | | [address] | | | | | | [phone] | | | | | | | | +--------+ + + + + | 06/24/ | Surgery | Surgery | Chilo | OPEN VENTRAL HERNIA | | 2018 | | | Jorje, MD [address] | REPAIR WITH | | | | | [address] | BIOLOGICAL MESH | | | | | [place], [place] | | | | | | [address] | | | | | | [phone] | | | | | | | | +--------+ + + + + | 06/30/ | Office | Cardiology | Randell Franks, | | | 2019 | Visit | | [address] | | | | | | [address] [place], [place] | | | | | | [address] | | | | | | [phone] | | | | | | | [...]
--- OUTSIDE RECORDS SUMMARY | ~2019-06-01 | XMS | Encounter Summary ---
Demographics + + + | Address | [address] | | | [place] [address] | + + + | Home Phone [...] [place], [place] | | | | | [address] | | + + + + + | Ellie Vang | ECON | Unknown | | + + + + + Care Team Providers + +------+ + | Care Deputy County Attorney Name | Role | Phone | [...] | | | | | | [place] [address] | | | +--------+ + + + [...] Rd | | | | | | [place], [place] | | | | | | [address] | | | | | | [phone] | | | | | | | | +--------+ + + + + | 06/24/ | Surgery | Surgery | Chilo, | OPEN VENTRAL HERNIA | | 2019 | | | MD Jorje [address] | REPAIR WITH | | | | | [address] | BIOLOGICAL MESH | | | | | [place] | | | | | | [address] | | | | | | [phone] | | | | | | | | +--------+ + + + + | 06/30/ | Office | Cardiology | Randell Franks, | | | 2018 | Visit | | [address] | | | | | | [place] | | | | | | [address] | | | | | | [phone] | | | | | | | | +--------+ + + + + documented as of this encounter Visit Diagnoses Not on filedocumented in this encounter"
--- OUTSIDE RECORDS SUMMARY | ~2019-06-01 | XMS | Encounter Summary ---
Demographics + + + | Address | [address] | | | [place] [address] | + + + | Home Phone [...] [place], [place] | | | | | [address] | | + + + + + | Ellie Vang | ECON | Unknown | | + + + + + Care Team Providers + +------+ + | Care Order Schedule Clerk Name | Role | Phone | + +------+ + | Fadi Goodrich DO | PCP | | + +------+ + Encounter Details +--------+ + + + + | Date | Type | Department | Care Team | Description | +--------+ + + + + | 02/13/ | Telephone | Cardiology | Randell Franks, | | | 2016 | | Preventive at [facility] | MD [address] | | | | | [address] | Ave [place], [place] | | | | | Mailcode: [facility] | [address] | | | | | [facility] | [phone] | | | | | and Healing, | | | | | | Building [address] | | | | | | [facility] [place] | | | | | | [address] | | | | | | [phone] | | | +--------+ + + + [...] Rd | | | | | | [place], [place] | | | | | | [address] | | | | | | [phone] | | | | | | | | +--------+ + + + + | 06/24/ | Surgery | Surgery | Chilo, | OPEN VENTRAL HERNIA | | 2019 | | | MD Jorje [address] | REPAIR WITH | | | | | [address] | BIOLOGICAL MESH | | | | | [place], [place] | | | | | | [address] | | | | | | [phone] | | | | | | | | +--------+ + + + + | 06/30/ | Office | Cardiology | Randell Franks, | | | 2019 | Visit | | MD [address] | | | | | | [place], [place] | | | | | | [address] | | | | | | [phone] | | | | | | | | +--------+ + + + + documented as of this encounter Visit Diagnoses Not on filedocumented in this encounter"
[~2019-06-01 13:10] MED LIST changes: +COUMADIN5 MG PO; +LOVENOX120 MG/0.8 SUB-Q
--- OUTSIDE RECORDS SUMMARY | 2019-06-01 13:46 | XMS ---
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 ROMERO Security Retail Greeting Card Merchandiser Events No recent Security Events currently on file CRITERIA MET - Group Notification - 6 ED Visits in 6 Months - [facility] - Has Care Guidelines - PDMP - [facility] - 2 Visits in 30 Days CARE PROVIDERS JONES DAVISON Dentist: Corporation Officer 05/23/2019-Current PHONE: [phone] Rob Tilley Retail Inventory Control Clerk/Cashier Manager 03/27/2018-Current PHONE: [phone] Bernard Hylton Internal Medicine: Pulmonary Disease 08/23/2018-Current PHONE: Unknown LOUIE HYLOTN Primary Care Current PHONE: Unknown Rob Tilley Primary Care 03/27/2018-Current PHONE: [phone] Guidelines Source: [facility] Guidelines Date: 12/06/2018 Care Coordination: Receiving mental health services with [facility].\T\nbsp; Please contact [facility] for mental health concerns.\T\nbsp; [facility]: [phone]\T\ nbsp; [place]: [phone].\T\nbsp; Care History Medical/Surgical 05/24/2019 [facility] - PATIENT HAS AN APT ON 06/16/[address] HYLTON. 05/11/2019 [facility] - Patient is currently established with [facility]. If patient is seen in the ED during business hours. Please contact CHWs at [facility]. Care Recommendation: This patient has had 5 or more Emergency Department visits in the last 12 months.\T\nbsp; Patient requires education on the scope and purpose of the ED as an acute care provider not a Primary Care Provider and should not be utilized for chronic conditions.\T\nbsp; These are guidelines and the provider should exercise clinical judgment when providing care. 08/23/2018 [facility] - PATIENT HAS A PCP APT TO ESTABLISH CARE ON 10/04/18 @ 10:00AM WITH DR HYLTON. [place] VISIT COUNT (12 MO.) 1 [facility] 1 [facility] [address] [facility] TOTAL 7 NOTE: Visits indicate total known visits. ED/UCC VISIT TRACKING (12 MO.) 06/01/2019 13:10 [facility] [place] TYPE: Emergency COMPLAINT: - HEADACHE/VISION ISSUES 05/23/2019 17:08 [facility] [place] TYPE: Emergency COMPLAINT: - BLOOD CLOT IN ARM DIAGNOSES: - Anxiety disorder, unspecified - Acute embolism and thrombosis of deep veins of r up extrem - Allergy status to penicillin - Other nursing home (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 - Pain in right arm - tank terminal gauger (current) use of aspirin - Allergy status to oth drug/meds/biol subst status 05/20/2019 10:19 [facility] [place] TYPE: Emergency COMPLAINT: - ABD PAIN, VOMITING DIAGNOSES: - Generalized abdominal pain - skilled nursing (current) use of aspirin - Allergy status to oth drug/meds/biol subst status - Unspecified abdominal pain - Prsnl hx of TIA (TIA), and cereb infrc w/o resid deficits - Anxiety disorder, unspecified - Other nursing home (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 - Other chronic pain - Allergy status to penicillin 05/13/2019 17:18 [facility] TYPE: Emergency DIAGNOSES: 89053. A303 73607. Bariatric surgery status 44459. Ventral hernia without obstruction or gangrene 89227. Nausea with vomiting, unspecified [address]64[address]. Unspecified abdominal pain 56748. Nonspecific mesenteric lymphadenitis 05/10/2019 13:06 [facility] [place] TYPE: Emergency COMPLAINT: - ABD PAIN DIAGNOSES: - Nausea with vomiting, unspecified - Allergy status to oth drug/meds/biol subst status - Prsnl hx of TIA (TIA), and cereb infrc w/o resid deficits - Solitary pulmonary nodule - Other nursing home (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 - Anxiety disorder, unspecified - Allergy status to penicillin - Ventral hernia without obstruction or gangrene - skilled nursing (current) use of aspirin - Unspecified abdominal pain - Diarrhea, unspecified 12/03/2018 11:51 [facility] [place] TYPE: Emergency DIAGNOSES: - Strain of unsp musc/tend at lower leg level, right leg, init - RIGHT LEG PAIN DUE TO FALL 08/22/2018 18:05 [facility] [place] TYPE: Emergency COMPLAINT: - ABD PAIN DIAGNOSES: - Other oil heaterman (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 - Upper abdominal pain, unspecified - Bariatric surgery status - Allergy status to oth drug/meds/biol subst status - Noninfective gastroenteritis and colitis, unspecified - Obesity, unspecified - Anxiety disorder, unspecified - skilled nursing (current) use of aspirin - Allergy status to penicillin - Personal history of pulmonary embolism - 1 Type 2 diabetes mellitus without complications - Prsnl hx of TIA (TIA), and cereb infrc w/o resid deficits - skilled nursing (current) use of oral hypoglycemic drugs - Personal history of urinary (tract) infections INPATIENT VISIT TRACKING (12 MO.) No inpatient visits to display in this time frame [email or web address]
--- NOTE | 2019-06-01 16:05 | EKG ---
[facility] [address] [place], [place] [address] Signed Normal sinus rhythm Cannot rule out Anterior infarct , age undetermined Abnormal ECG When compared with ECG of 27-OCT-2016 15:27, No significant change was found Confirmed by JACK MANNING DO ([id number]) on 06/01/2019 4:05:26 PM Electronically Signed By: JACK MANNING DO 06/01/19 1605 PATIENT NAME: DYLAN ROMERO Electrocardiogram DATE OF : 79 PHYSICIAN: JACK MANNING DO REPORT #: [id number] REPORT IS CONFIDENTIAL AND NOT TO BE RELEASED WITHOUT AUTHORIZATION
== END 2019-06-01 15:39 | disposition home or self-care (01) ==
LOC: ED 13:10
DX: R51 Headache (principal); E66.9 Obesity, unspecified; G43.909 Migraine, unspecified, not intractable, without status migrainosus; F41.9 Anxiety disorder, unspecified; Z88.8 Allergy status to other drugs, medicaments and biological substances; Z88.0 Allergy status to penicillin; Z79.899 Other long term (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; Z79.01 Long term (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; Z79.82 Long term (current) use of aspirin
CPT/HCPCS: 70450; 84484; 93005; 93010; 96374; 99284-25; J2765

== ENCOUNTER 2019-06-25 18:23 | Emergency (ER) | payer OTHER ==
[~2019-06-25] VITALS: Ht 147.3 cm; Wt 136.1 kg
--- OUTSIDE RECORDS SUMMARY | ~2019-06-25 | XMS | Encounter Summary ---
Demographics + + + | Address | [address] | | | [place] [address] | + + + | Home Phone | | + + + | Preferred Language | Unknown | + + + | Marital Status | Single | + + + | Hoahaoism Affiliation | NON | + + + | Race | White | + + + | Ethnic Group | Not or | + + + Author + + + | Author | [facility] | + + + | Organization | [facility] | + + + | Address | Unknown | + + + | Phone | Unavailable | + + + Support + + + + + | Name | Relationship | Address | Phone | + + + + + | Katalina Padilla | ECON | [address] | | | | | [place], [place] | | | | | [address] | | + + + + + | Ellie Vang | ECON | Unknown | | + + + + + Care Team Providers + +------+ + | Care Video Technician Name | Role | Phone | + +------+ + | Fadi Goodrich DO | PCP | | + +------+ + Reason for Visit + + + | Reason | Comments | + + + | Refill Request | | + + + Encounter Details +--------+--------+ + + + | Date | Type | Department | Care Team | Description | +--------+--------+ + + + | 04/28/ | Refill | Digestive Health | DannieIon ochoa Vinicius, | Refill Request | | 2018 | | Center at [facility] [address] | MD [address] | | | | | [address] | [place], [place] | | | | | Mailcode: [place] | [address] | | | | | [facility] and | [phone] | | | | | [address] [address] | | | | | | [place], [place] | | | | | | [address] | | | | | | [phone] | | | +--------+--------+ + + + Social History + +-------+ [...] | +--------+ + + + + | 07/29/ | Telephone-S | Pre-operative | | | | 2019 | cheduled | Medicine | | | +--------+ + + + + | 08/19/ | Procedure | Surgery | | | | 2019 | Pass | | | | +--------+ + + + + | 08/19/ | Hospital | Adult Acute Care | Chilo, | | | 2019 | Encounter | | MD Demond Recinos | | | | | | [address] | | | | | | [place] | | | | | | [address] | | | | | | [phone] | | | | | | | | +--------+ + + + + | 08/19/ | Surgery | Surgery | Chilo, | OPEN VENTRAL HERNIA | | 2019 | | | MD [address] | REPAIR WITH | | | | | [address] | BIOLOGICAL MESH | | | | | [place], [place] | | | | | | [address] | | | | | | [phone] | | | | | | | | +--------+ + + + + | 09/15/ | Office | Cardiology | Randell Franks, | | | 2019 | Visit | | [address] | | | | | | [place], [place] | | | | | | [address] | | | | | | [phone] | | | | | | | | +--------+ + + + + documented as of this encounter Visit Diagnoses Not on filedocumented in this encounter"
--- OUTSIDE RECORDS SUMMARY | ~2019-06-25 | XMS | Encounter Summary ---
Demographics + + + | Address | [address] | | | [place] [address] | + + + | Home Phone [...] Author + + + | Author | [facility] | + + + | Organization | [facility] | + + + | Address | Unknown | + + + | Phone | Unavailable | + + + Support + + + + + | Name | Relationship | Address | Phone | + + + + + | Katalina Padilla | ECON | [address] | | | | | [place], [place] | | | | | [id number] | | + + + + + | Ellie Vang | ECON | Unknown | | + + + + + Care Team Providers + +------+ + | Care Study Assistant Name | Role | Phone | + +------+ + | Fadi Goodrich DO | PCP | | + +------+ + Encounter Details +--------+---------+ + + + | Date | Type | Department | Care Team | Description | +--------+---------+ + + + | 02/22/ | Office | Preoperative | Gay Hoff, | Preop examination | | 2018 | Visit | [facility] at | DNP,ANP [address] | (Primary Dx) | | | | [facility] | [address] | | | | | [address] | [place], [place] | | | | | Mail Code: OC8PM | [address] | | | | | [facility] | [phone] | | | | | [facility], | | | | | | [address] | | | | | | [place], [place] | | | | | | [address] | | | | | | [phone] | | | +--------+---------+ + + + Anesthesia Record + + + + + | Procedure Name | Responsible | Anesthesia Start | Anesthesia Stop Time | | | Anesthesiologist | Time | | + + + + + | Preoperative | | | | | Evaluation | | | | + + + + + + + | No events on file. | + + +------+ | Meds | +------+ + + + No medications | on file. | + + + + + | No agents on file. | + + + + | No blood administrations on file. | + + + + | No LDAs on file. | + + documented in this encounter Social History + +-------+ +--------+------+ | Tobacco [...] + + + | Blood Pressure | 144/90 | 02/22/2018 1:11 PM | | | | | PDT | | + + + + + | Pulse | 122 | 02/22/2018 1:11 PM | | | | | PDT | | + + + + + | Temperature | 36.5 C (97.7 F) | 02/22/2018 1:11 PM | | | | | PDT | | + + + + + | Respiratory Rate | 14 | 02/22/2018 1:11 PM | | | | | PDT | | + + + + + | Oxygen Saturation | 95% | 02/22/2018 1:11 PM | | | | | PDT | | + + + + + | Inhaled Oxygen | - | - | | | Concentration | | | | + + + + + | Weight | 171.9 kg (379 lb) | 02/22/2018 1:11 PM | | | | | PDT | | + + + + + | Height | 149.9 cm (4' 11") | 02/22/2018 1:11 PM | | | | | PDT | | + + + + + | Body Mass Index | 76.55 | 02/22/2018 1:11 PM | | | | | PDT | | + + + + + documented in this encounter Patient Instructions Patient Instructions Gay Hoff DNP,ANP - 02/22/2018 1:10 PM PDT PREOPERATIVE INSTRUCTIONS Empty stomach before surgery On the day BEFORE your surgery, drink plenty of fluids and stay well hydrated NOTHING to eat or drink after midnight the night before surgery. This includes water, coffee, candy, mints, gum. Medications Instructions On the evening before your surgery, take ALL your usual evening medications On the morning of surgery TAKE the following medications with a sip of water: Atenolol On the morning of surgery DO NOT TAKE the following medications: Metformin Do not given short acting insulin on the morning of surgery Tresiba - Do Not give the night before Other medications not specifically mentioned are at your discretion as to taking or not taking on the morning of surgery. Unless otherwise directed by your surgeon, do not take any Aspirin, fish oil supplements , vitamin E or non-steroidal anti-inflammatory (NSAIDs i.e. Advil, Aleve, Ibuprofen) or herb al supplements 7- days prior to your surgery. These drugs may interfere with normal blood cl otting and may cause excessive bleeding and bruising during or after the surgery. If you need a pain medication for general purposes, use Tylenol as directed. OK to take it even on the morning of surgery, if needed. If you are in doubt about any medications that you are taking, please contact our office . Skin preparation to help avoid surgical site infections HIBICLENS GUIDE TO GENERAL SKIN CLEANSING AT HOME BEFORE SURGERY Before you bathe or shower: ? Read the instructions given to you by your healthcare practitioner, and begin your genera l skin cleansing protocol as directed. ? Carefully read all directions on the product label. ? Hibiclens is not to be used on the head or face, keep out of the eyes, ears and mouth. ? Hibiclens is not to be used in the genital area. ? Hibiclens should not be used if you are allergic to chlorhexidine gluconate or any other ingredients in this preparation. *See Hibiclens label for full product information and precautions. When you bathe or shower the night before your surgery: ? If you plan to wash your hair, do so with your regular shampoo. Then rinse hair and body thoroughly to remove any shampoo residue. ? Wash your face with your regular soap or water only. ? Thoroughly rinse your body with warm water from neck down. ? Use Hibiclens as you would any other liquid soap. Please do not put the Hibiclens on a wa sh cloth, apply directly to the skin and wash gently. Apply the minimum amount of Hibiclens necessary to cover the skin. Leave the Hibiclens on your skin for 1 minute, then rinse off. ? Rinse thoroughly with warm water. ? Do not use your regular soap after applying and rinsing Hibiclens. When using Hibiclens for a second day in a row (morning of surgery, as soon as you wake up) : ? Shower/bathe again using Hibiclens in the same method as described above. ? Do not apply any lotions, deodorants, powders or perfumes to the body areas that have been cleaned with Hibiclens. Other Important Guidelines ? Do not shave the surgical area Do not smoke, drink alcohol or use recreational drugs for 24 hours before your surgery Watch for any change in your health condition. Let your surgeon know right away if you do not feel well. ? Do not wear makeup, perfume, lotions, deodorant, powder or hairspray. Do not wear any jewelry to the hospital. Wear loose, comfortable clothing. Leave all your valuables at home. Allow enough travel time so you re not late for your check in for surgery. Please remember to brush your teeth the night before and the morning of your procedure. Smoking You should not smoke for 4 weeks before the procedure and 2 weeks after the procedure. If you are a smoker, please make sure to discuss a plan for managing nicotine withdrawal while in the hospital. Smoking increases the risk of post operative complications because it causes narrowing of b lood vessels, which leads to decreased blood flow to the tissue and therefore poor healing. If you have 3-4 weeks before your planned procedure and wish to quit, we will help you with resources and support. Preventing post op complications while you are in the hospital Use an incentive spirometer or peep breathe to keep your lungs working properly an d to help prevent respiratory complications. It helps you take long, deep breaths. Use it at least once every hour while you are awake. Leg and feet exercises will maintain good circulation and help prevent blood clots in yo ur legs. Sometimes your doctor will order sequential air compression stockings. Compressed air helps the circulation in your legs. Walking and moving will help stimulate normal circulation and deep breathing. After you r surgery, your nurse may ask you to sit, stand or walk. Surgery check-in location: Admitting - [facility], ninth floor lobby Surgery Check in Time: The Preoperative Medicine Clinic is not in the position to give you accurate information regarding surgical check in time. We refer you back to your surgical office regarding this important information. Going Home Your surgical team will decide when you are medically ready to go home. If you are released to go home on the same day as your procedure/surgery please note the following: You will not be able to drive. You will be required to have a competent person drive you or accompany you by taxi or pu blic transportation on the day of discharge. It is also recommended that you have a competent person assist you and look after you on the first night after you have undergone regional blocks (72 hours for patients going home with regional block pump), deep sedation, and/or general anesthesia. If you stayed in the hospital after surgery, please arrange for your ride to come for yo u around 9AM on the day your doctor says you can go home. If you have questions or concerns after you go home, call your doctor s office. If it is after office hours, call the [facility] photographic enlarger operator at [phone] and ask them to page him or h er. documented in this encounter Progress Notes Carlyle Dejesus MA - 02/22/2018 1:10 PM PDTVenipuncture performed in clinic, blood griselda ple obtained from Right hand site 18 4:52 PM Gay Palm DNP,ANP - 02/22/2018 1:10 PM PDTFormatting of this note migh t be different from the original. PREOPERATIVE CONSULT NOTE Author: Gay Hoff DNP,ANP Referring Physician: Ion Pandey MD Primary Care Provider: Fadi Goodrich DO Reason for Consult: Preoperative evaluation and risk assessment Proposed Procedure/Date: LAPAROSCOPIC NISH EN Y GASTRIC BYPASS - 03/01/2018 HISTORY OF PRESENT ILLNESS: Elzbieta Cristina is a 42 y.o. female here for preoperative eval uation of medical problems in anticipation of the above procedure. Pt has dx of Morbid obes ity. Symptoms related to the diagnosis: She reports losing 150 lbs since 3 years ago. She started with 529 lbs and now at 373 lbs. She is pleased with it and ready to change her lif e style. Pertinent medical problems discussed during this visit: DVT x 2 and subsequent Right side lung PE (10/2015) She was on warfarin for 3 months and followed by aspirin 81 mg daily. No recurrence - TTE (10/2015) with mild pulmonary HTN at RVSP 28 mmHg PV mn gd - to normal RV/LV size an d function per TTE ( 02/16/2017) from [facility]: Improved and stable. T2DM - controlled with Metformin 1000 mg po twice daily, Novolin short acting insulin "a fter each meals" according to her - HgA1C has improved to 7.1 ( 02/22/2018) from HgA1C at 7. 7 (11/20/2017). She's informed and pleased of outcome. She reports trying hard to eat bob r and do more exercise. Super obesity BMI 76.55 kg/m2 AMARA - on CPAP and compliant with it. GERD - On omeprazole Chronic Fluid retention Controlled with Torsemide 100 mg po twice daily. She repor ts chronic fluid retention and manged with torsemide for sometime. Anxiety - Controlled with Atenolol and Alprazolam and states "my heart goes fast when I 'm nervous and atenolol helps". Hypothyroidism - Amour thyroid MRSA and staph (2011) - Appendix repair area - treated antibiotics and no recurrence. Perioperative cardiac risks: CAD no CHF no CVA no CKD with creatinine >2 no DM treated with insulin no Functional Capacity: Moderate (4-10 mets) - She reports losing weight and bit more active t hat she is able to walk a block or more so and able to walk up a flight of stairs. Denies ch est pain, chest discomfort, palpitation, SOB, YO, PND, lightheadedness, dizziness, near syn cope or syncope. Prior complications of anesthesia: none ROS: HPI: Prior Anesthetic Problems: No Pulmonary: no shortness of breath no cough no stridor no wheezing no rhinorrhea no sputum no p neumothorax no Recent Respiratory Infection Pt. Has no asthma no COPD Dx of sleep apnea Uses BiPap/CPAP Cardiovascular: DVT (x 2) in 2016 and subsequent PE (2016) Functional Capacity: Low - cyanosis, palpitations and syncope negative for pulmonary HTN no PAD no chest pain n o CHF no hypertension no CAD Sx no valvular problems/murmurs no arrhythmia no Cardiac assist devices no pacemaker/ICD GI/Hepatic: Within Defined Limits except as noted below no GI Bleed no OTHER GI no GERD no liver d isease no hepatitis Renal: Within Defined Limits except as noted below no renal failure no electrolyte abnormalities no dialysis Urology/Telecommunications Engineer: Within Defined Limits except as noted below Endo: Diabetes: type 2 well controlled oral hypoglycemics and insulin injections Endocrine Othe r Thyroid:+ hypothyroidism no Hx Corticosteroid Use Neuro/Psych: Within Defined limits except as noted below No Head Conditions No Neurologic Development c onditions No Spine Conditions No Neuromuscular Conditions Psych Disorder depression and an xiety pain Current pain score: 7 Pre-existing neuropathy Chronic Pain Musculoskeletal: arthritis No Muscular Disorders Heme/Onc: Within Defined Limits except as noted below Pt. has: no active bleeding no bleeding disord er No clotting disorders No hemoglobin disorders no malignancy Infectious Disease: MRSA (2010) Staph - Appendix repair area - treated antibiotic MRSA no VRE no clostridium di fficile no HIV/AIDS no tuberculosis Skin: Integumentary system within defined limits no open wounds No active skin infections no ski n conditions AutoImmune Disorders: autoimmune disorders within defined limits No autoimmune disorders Current medications reviewed / updated Current Outpatient Prescriptions Medication Sig acetaminophen 325 mg oral tablet Take 2 tablets by mouth every six hours as needed for pain. Cut tablet into small pieces. Do not crush. ALPRAZolam 1 mg oral tablet Take 1 mg by mouth three times daily as needed for anxiety. ascorbic acid (vitamin C) (VITAMIN C) 500 mg oral tablet Take 1 tablet by mouth three t imes daily. ascorbic acid (VITAMIN C) 500 mg Oral tablet Take 500 mg by mouth once daily. aspirin EC 81 mg oral tablet,delayed release (DR/EC) Take 81 mg by mouth once daily. atenolol 25 mg oral tablet Take 25 mg by mouth two times daily. CALCIUM CRB&GOP-B0-URT80-GENIS ORAL Take 2 tablets by mouth two times daily. ergocalciferol (VITAMIN D2) 50,000 unit oral capsule Take 50,000 Units by mouth twice w eekly (on Thursday and ). Ferrous Gluconate 324 mg total salt (36 mg elemental iron) oral tablet Take 1 tablet by mouth three times daily. FLUoxetine 20 mg oral tablet Take 60 mg by mouth once daily at bedtime. gabapentin 300 mg oral capsule Take 300 mg by mouth four times daily. glycerin (ADULT) rectal suppository Unwrap and insert 1 suppository rectally once daily as needed for constipation. magnesium oxide 400 mg oral tablet Take 400 mg by mouth once daily. metFORMIN 1,000 mg Oral tablet Take 1,000 mg by mouth two times daily. NOVOLIN N 100 unit/mL subcutaneous suspension Inject under the skin (SUBC) three times daily with meals. OLANZapine 15 mg oral tablet Take 30 mg by mouth once daily at bedtime. omeprazole 20 mg oral capsule,delayed release(DR/EC) Take 1 capsule by mouth once daily in the morning. Open the capsule and mix into sugar-free liquid or yogurt. ondansetron ODT 4 mg oral tablet,disintegrating Dissolve 1 tablet on tongue and swallow every six hours as needed for nausea/vomiting. oxyCODONE (immediate release) 5 mg oral tablet Take 1 tablet by mouth every three hours as needed (Pain). Indications: Pain PHENTERMINE 37.5 mg oral tablet TAKE ONE TABLET BY MOUTH ONCE DAILY IN THE MORNING BEFO RE BREAKFAST polyethylene glycol 17 gram/dose oral powder Dissolve 17g (1 capful) into 4 ounces of l iquid and drink once daily as needed for constipation. potassium chloride SR 20 mEq oral tablet,ER particles/crystals Take 2 tablets by mouth two times daily. (Patient taking differently: Take 60 mEq by mouth four times daily. ) simethicone chew 80 mg oral tablet,chewable Chew and swallow 1 tablet four times daily as needed for gas/bloating. sodium fluoride 1.1 % dental cream Place [...] the skin (SUBC) once daily at bedtime. ursodiol 300 mg oral capsule Take 1 capsule by mouth two times daily. Start taking two weeks after your surgery. Level of confidence in medication reconciliation accuracy: High Allergies reviewed / updated Allergies Allergen Reactions Amoxicillin Benadrilina [Diphenhydramine Hcl] Hives Parlodel [Bromocriptine] Unknown Blood clots Penicillin Hives Past medical history reviewed / updated Past Medical History: Diagnosis Date Abdominal pain [...] index of 70 and over in adult ([facility]) Myalgia and myositis Nausea Neck pain Numbness Osteoarthritis of knee Palpitations Pneumonia Shortness of breath Staphylococcal infection Stroke ([facility]) TIA (transient ischemic attack) due to Bromocriptine Tinea corporis UTI (urinary tract infection) Past surgery reviewed / updated Past Surgical History Procedure Laterality Date Tonsillectomy and adenoidectomy Appendectomy, open 2010 Umbilical hernia repair 2010 Treatment of ankle fracture with screws remaining Incision and drainage of wound abscess x2 midline transverse wound s/p open appendectomy 2010 Ventral hernia repair 10/2012 Dr. Andie Brian Incisional hernia repair 03/01/2015 [facility]/ Dr. Cantu. Primary fascial closure and scar excision Family history reviewed / updated Family History Problem Relation Heart Attack Father Diabetes Mother Alcohol/Drug Other Alcoholism in mother & father Hypertension Other M&F Asthma Other Father, brother, daughters Lung Disease Other Father Obesity Other M&F&Sister Diabetes Other Mother Arthritis Other M&F Autoimmune Disease Sister lupus Social history reviewed / updated Social History Substance Use Topics Smoking status: Former Smoker Smokeless tobacco: Never Used Alcohol use No PHYSICAL EXAM: Last Vitals: BP 144/90 | Pulse 122 | Temp 36.5 C (97.7 F) | RR 14 | Ht 1.499 m (4' 11") | Wt 171.9 kg (379 lb) | SpO2 95% | BMI 76.55 kg/(m^2) Body mass index is 76.55 kg/m. General: Appearance: No distress and Smiling LOC: Alert Arousability: Arouses to verbal stimuli HEENT: Normocephalic/Atraumatic Airway: Dentition: dentition is normal Date of last Dental Exam: 2 -3 months ago Mallampati: 3 Mout h Opening: > 3 cm TM Distance:> 6 cm Kwon: No C-Spine ROM: Limited extension Neck Anatomy: Thick, obese Jaw Protrusion: Normal (lower incisors go above upper incisors) Pulmonary: Respiratory: pulmonary exam normal Breath Sounds: breath sounds normal Cardiovascular: Rhythm: Regular Rate: Tachycardia Cardiovascular comments: Slightly tachycardia due to anxi ety today. Abdomen: General: Normal Body Habitus: obesity Bowel Sounds: bowel sounds are normal GI Comments: BM I 76.55 Kg/m2 Musculoskeletal: Range of Motion: Normal range of motion Neuro/Psych: Affect: Normal Cognitive Status: Normal Speech: Normal speech Strength: Normal Muscle Tone: Normal Movement: Normal Gait Station: Normal Sensation: Norm al to light touch Skin: Color: skin color normal Texture: Normal Turgor: turgor normal Temperature: Warm Other Implanted Devices: Implanted devices: None LABS & DATA REVIEWED/ORDERED Lab Results Component Value Date WBC 16.06 02/22/2018 HB 14.3 02/22/2018 HCT 44.5 02/22/2018 PLT 279 02/22/2018 MCV 86.9 02/22/2018 RDW 51.3 02/22/2018 Lab Results Component Value Date NA 138 02/22/2018 K 3.5 02/22/2018 CL 106 02/22/2018 BICARB 22 02/22/2018 BUN 25 02/22/2018 CR 0.93 02/22/2018 GLU 130 02/22/2018 CA 9.5 02/22/2018 AST 20 02/22/2018 ALT 29 02/22/2018 AP 109 02/22/2018 TBILI 0.5 02/22/2018 TP 8.2 02/22/2018 ALB 3.3 02/22/2018 Lab Results Component Value Date ABO A 02/22/2018 RH Positive 02/22/2018 Lab Results Component Value Date A1C 7.1 (H) 02/22/2018 12-Lead ECG (Personally Reviewed) (02/22/2018) Sinus tachycardia at 110 bpm, COLETTE 170ms, QRS 98ms, QTC 460ms, TTE ( 02/16/2017) - [facility] 1. Overall left ventricular systolic function is normal with, an EF between 60 - 65 %. 2. The right ventricle is normal in size and function. 3. No significant valvular abnormalities are noted. 4. In comparison to the previous (technically difficult) echocardiographic study done 01/01, no signfiicant changes are noted. TTE (02/17/2016) - [facility] Conclusions 1. There is normal left ventricular systolic function. 2. The estimated ejection fraction is 65-70%. 3. Normal left ventricular diastolic filling is observed. 4. No hemodynamically significant valvular abnormalities 5. There is no pericardial effusion Left Ventricle: The left ventricular chamber size is normal. There is no left ventricular hypertrophy. No w all motion abnormalities seen. There is normal left ventricular systolic function. The estim ated ejection fraction is 65-70%.Cardiac output is 9.6 l/min. Normal left ventricular diastolic filling is observed. Left Atrium: The left atrium is not well visualized. But appears to be at least mildly dilated, visually . Right Ventricle: The right ventricle is not well visualized. But appears mildly dilated with normal systolic function. TAPSE measures 2.3cm. Right Atrium: The right atrium is not well visualized. But appears to be grossly normal in size. Unable t o estimate the right atrial pressure due to poor subcostal window. The interatrial septum ap pears normal. Aortic Valve: The aortic valve is not well visualized. But appear to be grossly normal in structure. Syst olic excursion of the aortic valve is normal. The aortic root is sclerotic. There is aortic annular calcification. There is no evidence of aortic regurgitation. There is no evidence of aortic stenosis. Mitral Valve: The mitral valve leaflets appear normal. There is physiological mitral regurgitation. Tricuspid Valve: The tricuspid valve leaflets are normal.There is trace tricuspid regurgitation.Unab le to estimate the right ventricular systolic pressure due to incomplete spectral Doppler wa veform. Pulmonic Valve: The pulmonic valve is not well visualized. There is no evidence of pulmonic regurgitation. There is no pulmonic stenosis. Pericardium: There is no pericardial effusion. A pericardial fat pad is visualized. Aorta: There is no dilatation of the ascending aorta. There is no dilatation of the aortic root. Venous: The inferior vena cava was not well visualized; unable to accurately evaluate size and resp iratory change. TTE (11/07/2015) - [facility] Final Impressions: 1. The interpretation of images is limited by poor acoustic windows. 2. The left ventricular cavity size is normal. 3. The LV ejection fraction is normal. 4. The right ventricular size is moderately enlarged. 5. Moderately reduced RV systolic function. 6. There are no prior exams available for comparison. Left Ventricle: The left ventricular cavity size is normal. Visually estimated left ventric ular ejection fraction is 60 - 65%. The LV ejection fraction is normal. Due to poor endocardial definition, ultrasound contrast was used ([facility]). Left Ventricular Wall Motion: Left ventricular systolic thickening is normal in all segment s. Atria: Left atrial size is normal. Normal right atrium. Right Ventricle: The right ventricular size is moderately enlarged. Global RV systolic func tion is moderately reduced. The RV TDI s' velocity is 9cm/sec. Aortic Valve: The aortic valve is trileaflet and normal in structure and function. No indic ation of aortic valve regurgitation. Mitral Valve: The mitral valve is structurally normal. No evidence of mitral valve regurgit ation. Tricuspid Valve: The tricuspid valve is structurally normal. Trace tricuspid regurgitation. The tricuspid regurgitant velocity is 2.38 m/s, and with an assumed right atrial pressure of 5 mmHg, the estimated right ventricular systolic pressure is normal at 27.7 mmHg. Pulmonic Valve: The pulmonic valve is structurally normal. Trace pulmonary valve regurgitat ion. The peak trans pulmonic gradient is 5.5 mmHg. Pulmonary Artery: The left pulmonary artery is of normal size and origin. The right pulmona ry artery is of normal size and origin. Aorta: Visualized portions of the ascending aorta and aortic root appear normal. Venous: Inferior vena cava is normal with normal inspiratory collapse. Pericardium: There is significant precordial fat pad present. No pericardial effusion is se en. RVSP 28 mmHg PV mn gd - mild pulmonary HTN Perioperative risk calculators 2014 ACC/AHA Perioperative Cardiac Risk Stratification (assumes non-emergent, non-cardiac p rocedure) Are active cardiac conditions present? No Calculate the combined surgical and patient-specific risk: using the [employer] perioperative ca rdiac risk calculator, the risk of major adverse cardiac event (MACE) is: less than 1%. No further risk stratification for coronary disease is indicated. Estimated ASA class 3 Other perioperative risk calculators: NSQQIP Surgical Risk Calculator: http://[email or web address].facs.org/RiskCalculator/PatientInfo. [email or web address] 0-5 = Not Frail 6-7 = Vulnerable 8-9 = Mid Frailty 10-11 = Moderate Frailty 12-17 = Severe Frailty ASSESSMENT and RECOMMENDATIONS: Perioperative risk assessment: In summary, Elzbieta Cristina is a very pleasant 42 y.o. female with diagnosis ofMorbid obesity, scheduled for LAPAROSCOPIC NISH EN Y GASTRIC BYPASS. Based on the clinical information obtained and reviewed during this visit, the overall ass essment is that the patient is having elective major surgery with identified risk factors. The patient is stable / optimized for surgery. Additional testing/optimization is not nee ded. Medication management recommendations: The patient was advised to continue all usual med ications except as noted in Patient Instructions (After Visit Summary given to pt) Pre-procedure antibiotic recommendation: Per standard protocol. DVT x 2 and subsequent Right side lung PE (10/2015) She was on warfarin for 3 months and followed by aspirin 81 mg daily. No recurrence - TTE (10/2015) with mild pulmonary HTN at RVSP 28 mmHg PV mn gd - to normal RV/LV size an d function per TTE ( 02/16/2017) form [facility]. Improved and stable. - Confirmed with Dr. Ion Pandey and states, "I can perform it if she takes 81mg daily". Thus, I have advised her to continue with aspirin 81 mg daily. T2DM - controlled with Metformin 1000 mg po twice daily, Novolin short acting insulin "a fter each meals" according to her - HgA1C has improved to 7.1 ( 02/22/2018) from HgA1C at 7. 7 (11/20/2017). She's informed and pleased of outcome. She reports trying hard to eat bob r and do more exercise. I have advised to hold Metformin on the morning of the procedure. D o not give short acting insulin on the morning of the procedure and Hold the night insulin T resiba the night before the surgery. Super obesity BMI 76.55 kg/m2 AMARA - on CPAP and compliant with it. Advised to bring her own apparatus for [facility] GERD - On omeprazole. Chronic Fluid retention Controlled with Torsemide 100 mg po twice daily. She repor ts chronic fluid retention and manged with torsemide for sometime. Advised to hold morning Torsemide on the morning of the procedure. Anxiety - Controlled with Atenolol and Alprazolam and states "my heart goes fast when I 'm nervous and atenolol helps". Advised continue Atenolol and take Alprazolam the night befo re the surgery. Hypothyroidism - Amour thyroid and continue to follow up with PCP. She appeared to understand the whole discussion and verbalized that all of her questions we re answered to satisfaction. Thank you for the opportunity to contribute to this patient's care. Gay Hoff, ERENDIRA,ANP [facility] 4TH FLOOR [address] [facility] [address] I spent time (45 minutes, >50% of the visit) counseling the pt regarding perioperative risk (cardiac/bleeding/ DVT/ respiratory failure/ infection, etc) and methods to mitigate risk. I advised the patient regarding NPO requirements, hydration before surgery, showering, gen eral body hygiene. All pre-procedure instructions given to the patient (after-visit summary ). All of patient's questions were addressed. The patient verbalized understanding of the instructions given. documented in this encounter Plan of Treatment [...] Recinos | | | | | | [address] | | | | | | [facility] [place] | | | | | | [address] | | | | | | [phone] | | | | | | | | +--------+ + + + + | 08/19/ | Surgery | Surgery | Chilo, | OPEN VENTRAL HERNIA | | 2019 | | | MD Demond [address] | REPAIR WITH | | | | | [address] | BIOLOGICAL MESH | | | | | [place], [place] | | | | | | [address] | | | | | | [phone] | | | | | | | | +--------+ + + + + | 09/15/ | Office | Cardiology | Randell Franks, | | | 2019 | Visit | | MD [address] | | | | | | [address] [place], [place] | | | | | | [address] | | | | | | [phone] | | | | | | | | +--------+ + + + + + + +--------+ + + | Name | Type | Priori | Associated Diagnoses | Order Schedule | | | | ty | | | + + +--------+ + + | COMMUNICATION TO [facility] | Procedures | Routin | Preop examination | Ordered: 02/22/2018 | | LAB DRAW | | e | | | + + +--------+ + + documented as of this encounter Procedures + +--------+ + + + | Procedure Name | Priori | Date/Time | Associated Diagnosis | Comments | | | ty | | | | + +--------+ + + + | W[place] COLLECTION VENOUS | Routin | 02/22/2018 | Preop examination | | | BLOOD,VENIPUNCTURE | e | 1:27 PM | | | | | | PDT | | | + +--------+ + + + | CBC AND AUTO DIFF | Routin | 02/22/2018 | Preop examination | Results for this | | | e | 1:25 PM | | procedure are in the | | | | PDT | | results section. | + +--------+ + + + | CBC, WITH | Routin | 02/22/2018 | Preop examination | Results for this | | DIFFERENTIAL | e | 1:25 PM | | procedure are in the | | | | PDT | | results section. | + +--------+ + + + | COMPLETE METABOLIC | Routin | 02/22/2018 | Preop examination | Results for this | | SET | e | 1:25 PM | | procedure are in the | | (NA,K,CL,CO2,BUN,CRE | | PDT | | results section. | | AT,GLUC,CA,AST,ALT,B | | | | | | MARGIE TOTAL,ALK | | | | | | PHOS,ALB,PROT TOTAL) | | | | | + +--------+ + + + | ANTIBODY SCREEN | Routin | 02/22/2018 | Preop examination | Results for this | | | e | 1:25 PM | | procedure are in the | | | | PDT | | results section. | + +--------+ + + + | TYPE AND SCREEN | Routin | 02/22/2018 | Preop examination | Results for this | | | e | 1:25 PM | | procedure are in the | | | | PDT | | results section. | + +--------+ + + + | ABO & RH TYPE | Routin | 02/22/2018 | Preop examination | Results for this | | | e | 1:25 PM | | procedure are in the | | | | PDT | | results section. | + +--------+ + + + | HEMOGLOBIN A1C, | Routin | 02/22/2018 | Preop examination | Results for this | | BLOOD | e | 1:25 PM | | procedure are in the | | | | PDT | | results section. | + +--------+ + + + | 12 LEAD ECG | Routin | 02/22/2018 | Preop examination | Results for this | | | e | 1:18 PM | | procedure are in the | | | | PDT | | results section. | + +--------+ + + + documented in this encounter Results CBC AND AUTO DIFF (02/22/2018 1:25 PM PDT) + + + + + + | Component | Value | Ref Range | Performed | Pathologist | | | | | At | Signature | + + + + + + | WHITE CELL | 16.06 (H) | 3.50 - 10.80 | [facility] | | | COUNT | | K/cu mm | LABORATORY | | | | | | SERVICES, | | | | | | CORE | | + + + + + + | RED CELL | 5.12 | 4.00 - 5.20 | [facility] | | | COUNT | | M/cu mm | LABORATORY | | | | | | SERVICES, | | | | | | CORE | | + + + + + + | HEMOGLOBIN | 14.3 | 12.0 - 16.0 | [facility] | | | | | g/dL | LABORATORY | | | | | | SERVICES, | | | | | | CORE | | + + + + + + | HEMATOCRIT | 44.5 | 36.0 - 46.0 % | [facility] | | | | | | LABORATORY | | | | | | SERVICES, | | | | | | CORE | | + + + + + + | MCV | 86.9 | 80.0 - 100.0 fL | [facility] | | | | | | LABORATORY | | | | | | SERVICES, | | | | | | CORE | | + + + + + + | MCHC | 32.1 | 32.0 - 36.0 | [facility] | | | | | g/dL | LABORATORY | | | | | | SERVICES, | | | | | | CORE | | + + + + + + | RDW SD | 51.3 (H) | 35.1 - 46.3 fL | [facility] | | | | | | LABORATORY | | | | | | SERVICES, | | | | | | CORE | | + + + + + + | PLATELET | 279 | 150 - 400 K/cu | [facility] | | | COUNT | | mm | LABORATORY | | | | | | SERVICES, | | | | | | CORE | | + + + + + + | MPV | 10.0 | 9.7 - 12.3 fL | [facility] | | | | | | LABORATORY | | | | | | SERVICES, | | | | | | CORE | | + + + + + + | NRBC% | 0.0 | 0.0 - 0.3 % | [facility] | | | | | | LABORATORY | | | | | | SERVICES, | | | | | | CORE | | + + + + + + | NRBC# | 0.00 | 0.00 - 0.02 | [facility] | | | | | K/cu mm | LABORATORY | | | | | | SERVICES, | | | | | | CORE | | + + + + + + | NEUTROPHIL | 68.2 | 50.0 - 70.0 % | [facility] | | | % | | | LABORATORY | | | | | | SERVICES, | | | | | | CORE | | + + + + + + | LYMPHOCYTE | 22.2 | 18.0 - 42.0 % | [facility] | | | % | | | LABORATORY | | | | | | SERVICES, | | | | | | CORE | | + + + + + + | MONOCYTE % | 7.1 | 3.5 - 9.0 % | [facility] | | | | | | LABORATORY | | | | | | SERVICES, | | | | | | CORE | | + + + + + + | EOS % | 1.3 | 1.0 - 3.0 % | [facility] | | | | | | LABORATORY | | | | | | SERVICES, | | | | | | CORE | | + + + + + + | BASO % | 0.5 | 0.0 - 2.0 % | [facility] | | | | | | LABORATORY | | | | | | SERVICES, | | | | | | CORE | | + + + + + + | IG% | 0.7Comment: Increased | 0.0 - 1.0 % | [facility] | | | | immature granulocytes | | LABORATORY | | | | (IG) define a left | | SERVICES, | | | | shift. Immature | | CORE | | | | granulocytes (IG) are an | | | | | | automated count of | | | | | | metamyelocytes, | | | | | | myelocytes and | | | | | | promyelocytes. Bands | | | | | | are not included in the | | | | | | IG count. Bands are | | | | | | included in the | | | | | | neutrophil count. | | | | + + + + + + | NEUTROPHIL | 10.95 (H) | 1.80 - 7.70 | [facility] | | | # | | K/cu mm | LABORATORY | | | | | | SERVICES, | | | | | | CORE | | + + + + + + | LYMPHOCYTE | 3.57 | 1.00 - 4.80 | [facility] | | | # | | K/cu mm | LABORATORY | | | | | | SERVICES, | | | | | | CORE | | + + + + + + | MONOCYTE # | 1.14 (H) | 0.10 - 0.90 | [facility] | | | | | K/cu mm | LABORATORY | | | | | | SERVICES, | | | | | | CORE | | + + + + + + | EOS # | 0.21 | 0.00 - 0.50 | [facility] | | | | | K/cu mm | LABORATORY | | | | | | SERVICES, | | | | | | CORE | | + + + + + + | BASO # | 0.08 | 0.00 - 0.10 | [facility] | | | | | K/cu mm | LABORATORY | | | | | | SERVICES, | | | | | | CORE | | + + + + + + | IG# | 0.11 (H) | 0.00 - 0.10 | [facility] | | | | | K/cu mm | LABORATORY | | | | | | SERVICES, | | | | | | CORE | | + + + + + + + + | Specimen | + + | Blood - Blood | | (substance) | + + + + + | Narrative | Performed At | + + + | New pediatric reference ranges for Lymphocyte % in effect January 07, | [facility] | | 2018. New reference ranges for MCV, MCHC, PLT, IG% and IG# | LABORATORY | | effective 12/03/2017 Increased immature granulocytes (IG) define a | SERVICES, CORE | | left shift. Immature granulocytes (IG) are an automated count of | | | metamyelocytes, myelocytes and promyelocytes. Bands are not included | | | in the IG count. Bands are included in the neutrophil count. | | + + + + + + + + | Performing | Address | City/State/Zipcode | Phone Number | | Organization | | | | + + + + + | [facility] | [address] | [place] [address] | | | SERVICES, CORE | [address] | | | + + + + + ANTIBODY SCREEN (02/22/2018 1:25 PM PDT) + + + + + + | Component | Value | Ref Range | Performed | Pathologist | | | | | At | Signature | + + + + + + | Antibody | Negative | | [facility] | | | Screen | | | LABORATORY | | | | | | SERVICES, | | | | | | TRANSFUSION | | | | | | MEDICINE | | + + + + + + + + | Specimen | + + | Blood - Blood | | (substance) | + + + + + + + | Performing | Address | City/State/Zipcode | Phone Number | | Organization | | | | + + + + + | [facility] | [address] | [place] [address] | | | SERVICES, | [address] | | | | TRANSFUSION MEDICINE | | | | + + + + + ABO & RH TYPE (02/22/2018 1:25 PM PDT) + + + + + + | Component | Value | Ref Range | Performed | Pathologist | | | | | At | Signature | + + + + + + | ABO Group | A | | [facility] | | | | | | LABORATORY | | | | | | SERVICES, | | | | | | TRANSFUSION | | | | | | MEDICINE | | + + + + + + | Rh Type | Positive | | [facility] | | | | | | LABORATORY | | | | | | SERVICES, | | | | | | TRANSFUSION | | | | | | MEDICINE | | + + + + + + + + | Specimen | + + | Blood - Blood | | (substance) | + + + + + + + | Performing | Address | City/State/Zipcode | Phone Number | | Organization | | | | + + + + + | [facility] | [address] | [place] [address] | | | SERVICES, | [address] | | | | TRANSFUSION MEDICINE | | | | + + + + + HEMOGLOBIN A1C, BLOOD (02/22/2018 1:25 PM PDT) + + + + + + | Component | Value | Ref Range | Performed | Pathologist | | | | | At | Signature | + + + + + + | HEMOGLOBIN | 7.1 (H)Comment: Hgb A1C | <5.7 % | [...] of testing such as fructosamine should be | [facility] | | considered for monitoring retirement glycemic control in patients with: | LABORATORY | | Increased red cell turnover, certain hemoglobinopathies (e.g., HbS, | SERVICES, | | HbE, HbC and thalassemia syndromes), anemias, blood loss, chronic | SPECIAL IMM + | | liver disease and hemochromatosis (artefactually low HbA1c); iron | COAG | | deficiency anemia (artefactually high HbA1c due to enhanced glycation | | | of hemoglobin). | | + + + + + + + + | Performing | Address | City/State/Zipcode | Phone Number | | Organization | | | | + + + + + | [facility] | [address] | [place] [address] | | | SERVICES, SPECIAL | [address] | | | | IMM + [place] | | | | + + + + + COMPLETE METABOLIC SET (NA,K,CL,CO2,BUN,CREAT,GLUC,CA,AST,ALT,BILI TOTAL,ALK PHOS,ALB,PROT TOTAL) (02/22/2018 1:25 PM PDT) + +---------+ + + + | Component | Value | Ref Range | Performed | Pathologist | | | | | At | Signature | + +---------+ + + + | GLUCOSE, | 130 (H) | 70 - 99 mg/dL | [facility] | | | PLASMA | | | LABORATORY | | | (LAB) | | | SERVICES, | | | | | | CORE | | + +---------+ + + + | BUN, PLASMA | 25 (H) | 6 - 20 mg/dL | [facility] | | | (LAB) | | | LABORATORY | | | | | | SERVICES, | | | | | | CORE | | + +---------+ + + + | CREATININE | 0.93 | 0.60 - 1.10 | [facility] | | | PLASMA | | mg/dL | LABORATORY | | | (LAB) | | | SERVICES, | | | | | | CORE | | + +---------+ + + + | EGFR | >60 | >60 mL/min | [facility] | | | - | | | LABORATORY | | | SPANISH | | | SERVICES, | | | | | | CORE | | + +---------+ + + + | EGFR NON | >60 | >60 mL/min | [facility] | | | -RAJNI | | | LABORATORY | | | RICAN | | | SERVICES, | | | | | | CORE | | + +---------+ + + + | SODIUM, | 138 | 136 - 145 | [facility] | | | PLASMA | | mmol/L | LABORATORY | | | (LAB) | | | SERVICES, | | | | | | CORE | | + +---------+ + + + | POTASSIUM, | 3.5 | 3.4 - 5.0 | [facility] | | | PLASMA | | mmol/L | LABORATORY | | | (LAB) | | | SERVICES, | | | | | | CORE | | + +---------+ + + + | CHLORIDE, | 106 | 97 - 108 mmol/L | [facility] | | | PLASMA | | | LABORATORY | | | (LAB) | | | SERVICES, | | | | | | CORE | | + +---------+ + + + | TOTAL CO2, | 22 | 21 - 32 mmol/L | [facility] | | | PLASMA | | | LABORATORY | | | (LAB) | | | SERVICES, | | | | | | CORE | | + +---------+ + + + | CALCIUM, | 9.5 | 8.6 - 10.2 | [facility] | | | PLASMA | | mg/dL | LABORATORY | | | (LAB) | | | SERVICES, | | | | | | CORE | | + +---------+ + + + | CALCIUM(ALB | 10.1 | 8.6 - 10.2 | [facility] | | | CORRECTED) | | mg/dL | LABORATORY | | | | | | SERVICES, | | | | | | CORE | | + +---------+ + + + | BILIRUBIN | 0.5 | 0.3 - 1.2 mg/dL | [facility] | | | TOTAL | | | LABORATORY | | | | | | SERVICES, | | | | | | CORE | | + +---------+ + + + | TOTAL | 8.2 | 6.4 - 8.2 g/dL | [facility] | | | PROTEIN, | | | LABORATORY | | | PLASMA | | | SERVICES, | | | (LAB) | | | CORE | | + +---------+ + + + | ALBUMIN, | 3.3 (L) | 3.5 - 4.7 g/dL | [facility] | | | PLASMA | | | LABORATORY | | | (LAB) | | | SERVICES, | | | | | | CORE | | + +---------+ + + + | ALK PHOS | 109 (H) | 42 - 98 U/L | [facility] | | | | | | LABORATORY | | | | | | SERVICES, | | | | | | CORE | | + +---------+ + + + | AST(SGOT) | 20 | <=41 U/L | [facility] | | | | | | LABORATORY | | | | | | SERVICES, | | | | | | CORE | | + +---------+ + + + | ALT (SGPT) | 29 | <=60 U/L | [facility] | | | | | | LABORATORY | | | | | | SERVICES, | | | | | | CORE | | + +---------+ + + + | ANION GAP | 10 | 4 - 11 mmol/L | [facility] | | | | | | LABORATORY | | | | | | SERVICES, | | | | | | CORE | | + +---------+ + + + | ANION | 11 | 4 - 11 mmol/L | [facility] | | | GAP(ALB | | | LABORATORY | | | CORRECTED) | | | SERVICES, | | | | | | CORE | | + +---------+ + + + | POTASSIUM | No Hemo | | [facility] | | | CMNT | | | LABORATORY | | | | | | SERVICES, | | | | | | CORE | | + +---------+ + + + | BILI T CMNT | No Hemo | | [facility] | | | | | | LABORATORY | | | | | | SERVICES, | | | | | | CORE | | + +---------+ + + + | AST CMNT | No Hemo | | [facility] | | | | | | LABORATORY | | | | | | SERVICES, | | | | | | CORE | | + +---------+ + + + + + | Specimen | + + | Blood - Blood | | (substance) | + + + + + | Narrative | Performed At | + + + | GFR is estimated using the MDRD equation recommended by the | [facility] | | National Kidney Disease Education Program. [...] Rapidly changing kidney | | | function - Amputees, paraplegics, or other muscle-wasting diseses | | + + + + + + + + | Performing | Address | City/State/Zipcode | Phone Number | | Organization | | | | + + + + + | [facility] | [address] | [place] [address] | | | CLAIRE, LYDIA | [address] | | | + + + + + 12 LEAD ECG (02/22/2018 1:18 PM PDT) + + + + + + | Component | Value | Ref Range | Performed | Pathologist | | | | | At | Signature | + + + + + + | VENTRICULAR | 110 | bpm | [facility] | | | RATE | | | OF | | | | | | CARDIOLOGY | | + + + + + + | ATRIAL RATE | 110 | ms | [facility] | | | | | | OF | | | | | | CARDIOLOGY | | + + + + + + | P-R | 170 | ms | [facility] | | | INTERVAL | | | OF | | | | | | CARDIOLOGY | | + + + + + + | P AXIS | 44 | deg | [facility] | | | | | | OF | | | | | | CARDIOLOGY | | + + + + + + | QRS | 98 | ms | [facility] | | | DURATION | | | OF | | | | | | CARDIOLOGY | | + + + + + + | QT | 339 | ms | [facility] | | | | | | OF | | | | | | CARDIOLOGY | | + + + + + + | QTCB | 460 | ms | [facility] | | | | | | OF | | | | | | CARDIOLOGY | | + + + + + + | R AXIS | -54 | deg | [facility] | | | | | | OF | | | | | | CARDIOLOGY | | + + + + + + | T AXIS | 14 | deg | [facility] | | | | | | OF | | | | | | CARDIOLOGY | | + + + + + + | ECG | Sinus tachycardia | | [facility] | | | IMPRESSION | | | OF | | | | | | CARDIOLOGY | | + + + + + + | ECG | Borderline right axis | | [facility] | | | IMPRESSION | deviation- OTHERWISE | | OF | | | | NORMAL ECG - | | CARDIOLOGY | | + + + + + + | ECG | Electronically signed | | [facility] | | | IMPRESSION | by: JULIO FRIEND | | OF | | | | 02-22-2018 22:41:36 | | CARDIOLOGY | | + + + + + + + + | Specimen | + + | | + + + + + | Narrative | Performed At | + + + | | | + + + + + + + + | Performing | Address | City/State/Zipcode | Phone Number | | Organization | | | | + + + + + | [facility] | [address] | [place], [place] | | | CARDIOLOGY | [address] | [address] | | + + + + + documented in this encounter Visit Diagnoses + + | Diagnosis | + + | Preop examination - Primary Preoperative examination, unspecified | + + documented in this encounter
--- OUTSIDE RECORDS SUMMARY | ~2019-06-25 | XMS | Encounter Summary ---
Demographics + + + | Address | [address] | | | [place] [address] | + + + | Home Phone | | + + + | Preferred Language | Unknown | + + + | Marital Status | Single | + + + | Advent Affiliation | NON | + + + | Race | White | + + + | Ethnic Group | Not or | + + + Author + + + | Author | [facility] | + + + | Organization | [facility] | + + + | Address | Unknown | + + + | Phone | Unavailable | + + + Support + + + + + | Name | Relationship | Address | Phone | + + + + + | Katalina Padilla | ECON | [address] | | | | | [place], [place] | | | | | [address] | | + + + + + | Ellie Vang | ECON | Unknown | | + + + + + Care Team Providers + +------+ + | Care Paralegal Instructor Name | Role | Phone | + +------+ + | Kenyatta Cardenas MD | PCP | | + +------+ + Encounter Details +--------+ + + + + | Date | Type | Department | Care Team | Description | +--------+ + + + + | 03/02/ | Pharmacy | Outpatient Retail | | | | 2018 | Visit | [facility] | | | | | | [address] | | | | | | [place] | | | | | | [place] [address] | | | | | | [phone] | | | +--------+ + + + [...] [address] | | | | | | [place], [place] | | | | | | [address] | | | | | | [phone] | | | | | | | | +--------+ + + + + | 08/19/ | Surgery | Surgery | Chilo, | OPEN VENTRAL HERNIA | | 2019 | | | MD Jorje [address] | REPAIR WITH | | | | | [address] | BIOLOGICAL MESH | | | | | [place], [place] | | | | | | [address] | | | | | | [phone] | | | | | | | | +--------+ + + + + | 09/15/ | Office | Cardiology | Randell Franks, | | | 2019 | Visit | | MD [address] | | | | | | [place], [place] | | | | | | [address] | | | | | | [phone] | | | | | | | | +--------+ + + + + documented as of this encounter Visit Diagnoses Not on filedocumented in this encounter"
--- OUTSIDE RECORDS SUMMARY | ~2019-06-25 | XMS | Encounter Summary ---
Demographics + + + | Address | [address] | | | [place] [address] | + + + | Home Phone [...] Author + + + | Author | [facility] | + + + | Organization | [facility] | + + + | Address | Unknown | + + + | Phone | Unavailable | + + + Support + + + + + | Name | Relationship | Address | Phone | + + + + + | Katalina Padilla | ECON | [address] | | | | | [place], [place] | | | | | [address] | | + + + + + | Ellie Vang | ECON | Unknown | | + + + + + Care Team Providers + +------+ + | Care Learning Disabilities Resource Teacher Name | Role | Phone | + +------+ + | Fadi Goodrich DO | PCP | | + +------+ + Encounter Details +--------+ + + + + | Date | Type | Department | Care Team | Description | +--------+ + + + + | 06/09/ | Abstract | Cardiology | Randell Franks, | | | 2015 | | Preventive at [facility] | MD [address] | | | | | [address] | [address] [place], [place] | | | | | Mailcode: [facility] | [address] | | | | | [facility] | [phone] | | | | | and Healing, | | | | | | [address] | | | | | | [place], [place] | | | | | | [address] | | | | | | [phone] | | | +--------+ + + + [...] [address] | | | | | | [place], [place] | | | | | | [address] | | | | | | [phone] | | | | | | | | +--------+ + + + + | 08/19/ | Surgery | Surgery | Chilo, | OPEN VENTRAL HERNIA | | 2019 | | | MD Jorje [address] | REPAIR WITH | | | | | [address] | BIOLOGICAL MESH | | | | | [place], [place] | | | | | | [address] | | | | | | [phone] | | | | | | | | +--------+ + + + + | 09/15/ | Office | Cardiology | Randell Franks, | | | 2019 | Visit | | MD [address] | | | | | | [address] [place], [place] | | | | | | [address] | | | | | | [phone] | | | | | | | | +--------+ + + + + documented as of this encounter Visit Diagnoses Not on filedocumented in this encounter"
--- OUTSIDE RECORDS SUMMARY | ~2019-06-25 | XMS | Encounter Summary ---
Demographics + + + | Address | [address] | | | [place] [address] | + + + | Home Phone | | + + + | Preferred Language | Unknown | + + + | Marital Status | Single | + + + | Rastafari Affiliation | NON | + + + [...] + | Katalina Padilla | ECON | [address] | | | | | [place], [place] | | | | | [address] | | + + + + + | Ellie Vang | ECON | Unknown | | + + + + + Care Team Providers + +------+ + | Care Spark Plug Tester Name | Role | Phone | + [...] | +--------+ + + + + | 03/01/ | Anesthesia | 6A Intra Op [facility] | Aimee Hurst | | | 2017 | Event | [facility] | MD Jodie,PhD 408[address] | | | | | Admitting Desk | [address] | | | | | Located on the [address] | [facility] [place] | | | | | floor [address] | [address] | | | | | [address] | [phone] | | | | | [place], [place] | | | | | | [address] | Jason Balbuena | | | | | | MD Twin [address] | | | | | | [address] | | | | | | [place], [place] | | | | | | [address] | | | | | | [phone] | | | | | | | | +--------+ + + + + Anesthesia Record + + + + + | Procedure Name | Responsible | Anesthesia Start | Anesthesia Stop Time | | | Anesthesiologist | Time | | + + + + + | LAPAROSCOPIC NISH EN | Aimee Hurst, | 03/01/18 0824 | 03/01/18 1216 | | Y GASTRIC BYPASS | PhD WEI | | | | (N/A Abdomen) | | | | + + + + + +----+---+ + + | Da | T | Event | Comment | | te | i | | | | | m | | | | | e | | | +----+---+ + + | 08 | 0 | | | | /0 | 8 | | | | 6/ | 1 | | | | 20 | 7 | | | | 18 | | | | +----+---+ + + | | 0 | Pt. Check | Prior to anesthesia start, pt. Identified, examined, chart | | | 8 | | reviewed, PARDiogenes held, anesthetic plan made or approved by | | | 1 | | attending anesthesiologist. NPO status confirmed as appropriate | | | 7 | | for procedure Preoperative evaluation: unchanged | +----+---+ + + | | 0 | Preprocedur | Pt ID confirmed, informed consent obtained, insertion site | | | 8 | e Checklist | marked, equipment available | | | 2 | | | | | 0 | | | +----+---+ + + | | 0 | An Start | | | | 8 | | | | | 2 | | | | | 4 | | | +----+---+ + + | | 0 | An Start | | | | 8 | Data | | | | 3 | | | | | 4 | | | +----+---+ + + | | 0 | ETT | | | | 8 | | | | | 4 | | | | | 0 | | | +----+---+ + + | | 0 | Abx | | | | 9 | Administere | | | | 1 | d | | | | 5 | | | +----+---+ + + | | 0 | Timeout | | | | 9 | | | | | 1 | | | | | 6 | | | +----+---+ + + | | 0 | Incision | | | | 9 | | | | | 2 | | | | | 0 | | | +----+---+ + + | | 1 | Local | | | | 1 | Anesthetic | | | | 3 | by Surgeon | | | | 2 | | | +----+---+ + + | | 1 | Quick Note | desufflation | | | 1 | | | | | 3 | | | | | 5 | | | +----+---+ + + | | 1 | Surgery end | | | | 2 | | | | | 0 | | | | | 3 | | | +----+---+ + + | | 1 | Quick Note | Fade present on sustained tetany, sugammadex given | | | 2 | | | | | 0 | | | | | 6 | | | +----+---+ + + | | 1 | An Extubate | Neuromuscular function Intact. Pharynx suctioned. Patient obeys | | | 2 | | commands. Adequate pulmonary mechanics. | | | 0 | | | | | 9 | | | +----+---+ + + | | 1 | an stop | | | | 2 | data | | | | 0 | | | | | 9 | | | +----+---+ + + | | 1 | Anesthesia | | | | 2 | End | | | | 1 | | | | | 6 | | | +----+---+ + + | | 1 | PACU Rpt | | | | 2 | Given | | | | 1 | | | | | 7 | | | +----+---+ + + +------+ | Meds | +------+ + + + | Name | Total | + + + | midazolam | 2 mg | + + + | ceFAZolin | 3,000 mg | + + + | fentaNYL | 250 mcg | + + + | dexamethasone | 4 mg | + + + | lidocaine 2% | 100 mg | + + + | propofol | 210 mg | + + + | rocuronium | 110 mg | + + + | propofol (DIPRIVAN) 200 mg | 670,800 mcg | + + + | HYDROmorphone | 0.7 mg | + + + | ondansetron | 4 mg | + + + | neostigmine | 5 mg | + + + | glycopyrrolate | 0.6 mg | + + + | sugammadex (BRIDION) IV | 200 mg | + + + | lactated Ringers IV | 1,300 mL | + + + + + | Name | + + | O2 FR Avance (Total Liters) | + + | Air FR Avance (l/min) | + + | Insp Iso | + + | Et Iso | + + | Insp N2O % | + + + + | No blood administrations on file. | + + +--------+ + + + | Type | Details | Placement | Removal | +--------+ + + + | Wound | 01/01/17928; Yes; Right; | 01/01/17928 by | | | | panus; Other (Comment) (open | Ashley Herndon RN | | | | tane. area reddened. Pt reports | | | | | using goldbond medicated powder | | | | | on area) | | | +--------+ + + + | Incisi | 03/01/18921; Dannie; Midline; | 03/01/18921 by | | | on | adb- upper quadrant | Ethel Brito RN | | +--------+ + + + | Incisi | 03/01/18923; Dannie; Right; | 03/01/18923 by | | | on | adb- upper quadrant | Ethel Brito RN | | +--------+ + + + | Incisi | 03/01/18; 924; Dannie; Left; | 03/01/18924 by | | | on | adb- upper quadrant | Ethel Brito RN | | +--------+ + + + | Incisi | 03/01/18; 924; Dannie; Left; | 03/01/18924 by | | | on | Lateral; adb- upper quadrant | Ethel Brito RN | | +--------+ + + + | Incisi | 03/01/18; 105; Dannie MD ; | 03/01/18 105 by | | | on | Anterior, Upper; epigastrium | Erin Odell RN | | +--------+ + + + | Periph | 03/01/18; 0736; Jaymie RAUSCH; Right; | 03/01/18 0736 by | 03/02/18 0000 by | | eral | Anterior; Forearm; 22 g; None; | Leslie Smiley, | Mojgan Harvey RN | | IV | No; Positive; 03/02/18 | KELSIE | | +--------+ + + + | Periph | 03/01/18; 904; treggiari; Right; | 03/01/18 0905 by | 03/02/18 1430 by | | eral | Wrist; 18 g; Positive; 03/02/18; | Jason Murcia | Diana Trejo RN | | IV | 1430; Per protocol | MD Sree | | +--------+ + + + documented in this encounter Social [...] Telephone-S | Pre-operative | | | | 2020 | cheduled | Medicine | | | +--------+ + + + + | 08/19/ | Procedure | Surgery | | | | 2019 | Pass | | | | +--------+ + + + + | 08/19/ | Hospital | Adult Acute Care | [facility], | | | 2019 | Encounter | | MD [address] | | | | | | [address] | | | | | | [place] | | | | | | [address] | | | | | | [phone] | | | | | | | | +--------+ + + + + | 08/19/ | Surgery | Surgery | [facility] | OPEN VENTRAL HERNIA | | 2019 | | | MD [address] | REPAIR WITH | | | | | [address] | BIOLOGICAL MESH | | | | | [place], [place] | | | | | | [address] | | | | | | [phone] | | | | | | | | +--------+ + + + + | 09/15/ | Office | Cardiology | Randell Franks, | | | 2020 | Visit | | [address] | | | | | | [place], [place] | | | | | | [address] | | | | | | [phone] | | | | | | | | +--------+ + + + + documented as of this encounter Procedures + +--------+ + + + | Procedure Name | Priori | Date/Time | Associated Diagnosis | Comments | | | ty | | | | + +--------+ + + + | ANE ETT | Routin | 03/01/2018 | | Results for this | | | e | 9:42 AM | | procedure are in the | | | | PDT | | results section. | + +--------+ + + + documented in this encounter Results ANE ETT (03/01/2018 9:42 AM PDT) + + + | Narrative | Performed At | + + + | Jason Balbuena MD 03/01/2018 9:43 AM Procedure | | | Reason for Intubation: For surgical procedure, Location Performed: [place] | | | , Patient was preoxygenated Mask Ventilation Grade 2 - Ventilated | | | by mask with oral airway/adjuvant Intubation Blade type: | | | Mario , Blade size: 3, Intubation adjuncts: Ramp , Laryngoscopic | | | view: Grade II, Fiberoptics used: N/A , Number of Attempts: 1, | | | Positive for EtCO2: Yes, Breath sounds: Bilateral and equal | | | ETT Ett Adult: Single-lumen cuffed ETT Size: 7 ETT secured with: | | | adhesive tape Depth at Lip: 24 Cm Narrative Attending | | | physically present Performed by Resident | | + + + documented in this encounter Visit Diagnoses Not on filedocumented in this encounter Administered Medications + +--------+ + +------+------+ | Medication Order | MAR | Action | Dose | Rate | Site | | | Action | Date | | | | + +--------+ + +------+------+ | ceFAZolin (ANCEF) injection | Given | 03/01/20 | 3,000 mg | | | | INTRAPROCEDURE PRN, Starting Mon | | 18 9:15 | | | | | 03/01/18 at 0915, Until Thu03/01/18 | | AM PDT | | | | | at 1209 | | | | | | + +--------+ + +------+------+ +---+---+ | | | +---+---+ + +-------+ +------+---+---+ | dexamethasone (DECADRON) | Given | 03/01/20 | 4 mg | | | | injection INTRAPROCEDURE PRN, | | 18 9:18 | | | | | Starting Thu03/01/18 at 0918, | | AM PDT | | | | | Until Thu03/01/18 at 1209 | | | | | | + +-------+ +------+---+---+ +---+---+ | | | +---+---+ + +-------+ +--------+---+---+ | fentaNYL (SUBLIMAZE) injection | Given | 03/01/20 | 50 mcg | | | | INTRAPROCEDURE PRN, Starting Thu | | 18 12:37 | | | | | 03/01/18 at 0918, Until Thu03/01/18 | | PM PDT | | | | | at 1209 | | | | | | + +-------+ +--------+---+---+ +-------+ +--------+---+---+ | Given | 03/01/20 | 50 mcg | | | | | 18 10:52 | | | | | | AM PDT | | | | +-------+ +--------+---+---+ | Given | 03/01/20 | 50 mcg | | | | | 18 9:18 | | | | | | AM PDT | | | | +-------+ +--------+---+---+ +---+---+ | | | +---+---+ + +-------+ +--------+---+---+ | glycopyrrolate (ROBINUL) | Given | 03/01/20 | 0.6 mg | | | | injection INTRAPROCEDURE PRN, | | 18 11:44 | | | | | Starting Thu03/01/18 at 1144, | | AM PDT | | | | | Until Thu03/01/18 at 1209 | | | | | | + +-------+ +--------+---+---+ +---+---+ | | | +---+---+ + +-------+ +--------+---+---+ | HYDROmorphone (DILAUDID) | Given | 03/01/20 | 0.2 mg | | | | injection INTRAPROCEDURE PRN, | | 18 11:54 | | | | | Starting Thu03/01/18 at 1116, | | AM PDT | | | | | Until Thu03/01/18 at 1209 | | | | | | + +-------+ +--------+---+---+ +-------+ +--------+---+---+ | Given | 03/01/20 | 0.2 mg | | | | | 18 11:47 | | | | | | AM PDT | | | | +-------+ +--------+---+---+ | Given | 03/01/20 | 0.3 mg | | | | | 18 11:16 | | | | | | AM PDT | | | | +-------+ +--------+---+---+ +---+---+ | | | +---+---+ + + + +---+---+---+ | lactated Ringers IV 10 mL/hr, | given by | 03/01/20 | | | | | intravenous, PROCEDURE | | 18 11:20 | | | | | CONTINUOUS, Starting 03/01/18 | anesthes | AM PDT | | | | | at 0615, Until Thu03/01/18 at 1410 | iology | | | | | + + + +---+---+---+ +---------+ +---+---+---+ | New Bag | 03/01/20 | | | | | | 18 9:25 | | | | | | AM PDT | | | | +---------+ +---+---+---+ | New Bag | 03/01/20 | | | | | | 18 8:17 | | | | | | AM PDT | | | | +---------+ +---+---+---+ +---+---+ | | | +---+---+ + +-------+ +--------+---+---+ | lidocaine (XYLOCAINE MPF) 2 % | Given | 03/01/20 | 100 mg | | | | (20 mg/mL) injection | | 18 8:40 | | | | | INTRAPROCEDURE PRN, Starting Mon | | AM PDT | | | | | 03/01/18 at 0840, Until Thu03/01/18 | | | | | | | at 1209 | | | | | | + +-------+ +--------+---+---+ +---+---+ | | | +---+---+ + +-------+ +------+---+---+ | midazolam (PF) (VERSED) | Given | 03/01/20 | 2 mg | | | | injection INTRAPROCEDURE PRN, | | 18 8:24 | | | | | Starting 03/01/18 at 0824, | | AM PDT | | | | | Until Thu03/01/18 at 1209 | | | | | | + +-------+ +------+---+---+ +---+---+ | | | +---+---+ + +-------+ +------+---+---+ | neostigmine (PROSTIGMIN) | Given | 03/01/20 | 5 mg | | | | injection intravenous, | | 18 11:44 | | | | | INTRAPROCEDURE PRN, Starting Mon | | AM PDT | | | | | 03/01/18 at 1144, Until Thu03/01/18 | | | | | | | at 1209 | | | | | | + +-------+ +------+---+---+ +---+---+ | | | +---+---+ + +-------+ +------+---+---+ | ondansetron (ZOFRAN) injection | Given | 03/01/20 | 4 mg | | | | INTRAPROCEDURE PRN, Starting Mon | | 18 11:36 | | | | | 03/01/18 at 1136, Until Thu03/01/18 | | AM PDT | | | | | at 1209 | | | | | | + +-------+ +------+---+---+ +---+---+ | | | +---+---+ + +---------+ + +---+---+ | propofol (DIPRIVAN) 200 mg | New Bag | 03/01/20 | 25 | | | | INTRAPROCEDURE CONTINUOUS PRN, | | 18 9:40 | mcg/kg/m | | | | Starting Thu03/01/18 at 0940, | | AM PDT | in | | | | Until Thu03/01/18 at 1209 | | | | | | + +---------+ + +---+---+ +---+---+ | | | +---+---+ + +-------+ +-------+---+---+ | propofol (DIPRIVAN) injection | Given | 03/01/20 | 30 mg | | | | INTRAPROCEDURE PRN, Starting Mon | | 18 10:51 | | | | | 03/01/18 at 0840, Until 8/6/18 | | AM PDT | | | | | at 1209 | | | | | | + +-------+ +-------+---+---+ +-------+ +--------+---+---+ | Given | 03/01/20 | 180 mg | | | | | 18 8:40 | | | | | | AM PDT | | | | +-------+ +--------+---+---+ +---+---+ | | | +---+---+ + +-------+ +-------+---+---+ | rocuronium (ZEMURON) injection | Given | 03/01/20 | 10 mg | | | | INTRAPROCEDURE PRN, Starting Mon | | 18 11:15 | | | | | 03/01/18 at 0840, Until 03/01/18 | | AM PDT | | | | | at 1209 | | | | | | + +-------+ +-------+---+---+ +-------+ +-------+---+---+ | Given | 03/01/20 | 10 mg | | | | | 18 10:51 | | | | | | AM PDT | | | | +-------+ +-------+---+---+ | Given | 03/01/20 | 20 mg | | | | | 18 10:01 | | | | | | AM PDT | | | | +-------+ +-------+---+---+ +---+---+ | | | +---+---+ + +-------+ +--------+---+---+ | sugammadex (BRIDION) IV | Given | 03/01/20 | 200 mg | | | | INTRAPROCEDURE PRN, Starting Mon | | 18 12:06 | | | | | 03/01/18 at 1206, Until 03/01/18 | | PM PDT | | | | | at 1209 | | | | | | + +-------+ +--------+---+---+ +---+---+ | | | +---+---+ documented in this encounter"
--- OUTSIDE RECORDS SUMMARY | ~2019-06-25 | XMS | Encounter Summary ---
Demographics + + + | Address | [address] | | | [place] [address] | + + + | Home Phone | | + + + | Preferred Language | Unknown | + + + | Marital Status | Single | + + + | Shinto Affiliation | NON | + + + [...] + | Katalina Padilla | ECON | [address] | | | | | [place], [place] | | | | | [address] | | + + + + + | Ellie Vang | ECON | Unknown | | + + + + + Care Team Providers + +------+ + | Care Boot Trimmer Name | Role | Phone | + +------+ + | Fadi Goodrich DO | PCP | | + +------+ + Reason for Referral Consultation (Routine) +--------+--------+ + + + + | Status | Reason | Specialty | Diagnoses / | Referred By | Referred To | | | | | Procedures | Contact | Contact | +--------+--------+ + + + + | Closed | | Endocrinology | Diagnoses | Conser, | End General | | | | , Diabetes & | Morbid | Kathy Feliciano, PHYSICAL THERAPY ATTENDANT | [address] | | | | Metabolism | obesity | [address] | | | | | ([facility]) | [address], [address] | | | | | Procedures | [address] | Physician's | | | | | CONSULT TO | [place], [place] | Pavilion | | | | | ENDO | [address] | Physician's | | | | | [address] | Phone: | Pavilion | | | | | [address] | [phone] | [place], [place] | | | | | | Fax: | [address] | | | | | | [phone] | Phone: | | | | | | | [phone] | | | | | | | Fax: | | | | | | | [phone] | +--------+--------+ + + + + Encounter Details +--------+ + + + + | Date | Type | Department | Care Team | Description | +--------+ + + + + | 11/15/ | Documentati | Dig[facility]ive [facility] | Kathy Feldman, | | | 2012 | on | Center at [facility] [address] | PHYSICAL THERAPY ATTENDANT [address] | | | | | [address] | [facility] [address] | | | | | Mailcode: Center | [place], [place] | | | | | [facility] Health and | [address] | | | | | [facility] 2 | [phone] | | | | | [place], [place] | | | | | | [address] | | | | | | [phone] | | | +--------+ + + + [...] Procedure | Surgery | | | | 2020 | Pass | | | | +--------+ + + + + | 08/19/ | Hospital | Adult Acute Care | [facility] | | | 2020 | Encounter | | MD Jorje [address] | | | | | | [address] | | | | | | [place], [place] | | | | | | [address] | | | | | | [phone] | | | | | | | | +--------+ + + + + | 08/19/ | Surgery | Surgery | [facility], | OPEN VENTRAL HERNIA | | 2020 | | | MD [address] | REPAIR WITH | | | | | [address] | BIOLOGICAL MESH | | | | | [place], [place] | | | | | | [address] | | | | | | [phone] | | | | | | | | +--------+ + + + + | 09/15/ | Office | Cardiology | Randell Franks, | | | 2019 | Visit | | [address] | | | | | | [address] [place], [place] | | | | | | [address] | | | | | | [phone] | | | | | | | | +--------+ + + + + documented as of this encounter Visit Diagnoses + + | Diagnosis | + + | Morbid obesity (HCC) - Primary Morbid obesity | + + documented in this encounter"
--- OUTSIDE RECORDS SUMMARY | ~2019-06-25 | XMS | Encounter Summary ---
Demographics + + + | Address | [address] | | | [place] [address] | + + + | Home Phone [...] + + + | Author | [facility] | + + + | Organization | [facility] | + + + | Address | Unknown | + + + | Phone | Unavailable | + + + Support + + + + + | Name | Relationship | Address | Phone | + + + + + | Katalina Padilla | ECON | [address] | | | | | [place], [place] | | | | | [address] | | + + + + + | Ellie Vang | ECON | Unknown | | + + + + + Care Team Providers + +------+ + | Care Helper Steel Fabrication Name | Role | Phone | + +------+ + | Fadi Goodrich DO | PCP | | + +------+ + Encounter Details +--------+ + + + + | Date | Type | Department | Care Team | Description | +--------+ + + + + | 12/29/ | Abstract | Digestive Health | Hernandez Brian, | | | 2012 | | Center at [facility] [address] | MD [address] | | | | | [address] | [facility] | | | | | Mailcode: Center | [place], [place] | | | | | [facility] Health and | [address] | | | | | [facility] 2 | [phone] | | | | | [place], [place] | | | | | | [address] | | | | | | [phone] | | | +--------+ + + + [...] Rd | | | | | | [place], [place] | | | | | | [address] | | | | | | [phone] | | | | | | | | +--------+ + + + + | 08/19/ | Surgery | Surgery | [facility], | OPEN VENTRAL HERNIA | | 2019 | | | MD Jorje [address] | REPAIR WITH | | | | | [address] | BIOLOGICAL MESH | | | | | [facility] [place] | | | | | | [address] | | | | | | [phone] | | | | | | | | +--------+ + + + + | 09/15/ | Office | Cardiology | Randell Franks, | | | 2019 | Visit | | [address] | | | | | | [place] [facility] [place] | | | | | | [address] | | | | | | [phone] | | | | | | | | +--------+ + + + + documented as of this encounter Visit Diagnoses Not on filedocumented in this encounter"
--- OUTSIDE RECORDS SUMMARY | ~2019-06-25 | XMS | Encounter Summary ---
Demographics + + + | Address | [address] | | | [place] [address] | + + + | Home Phone | | + + + | Preferred Language | Unknown | + + + | Marital Status | Single | + + + | Protestant Affiliation | NON | + + + [...] + | Katalina Padilla | ECON | [address] | | | | | [place], [place] | | | | | [address] | | + + + + + | Ellie Vang | ECON | Unknown | | + + + + + Care Team Providers + +------+ + | Care Certified Technician Name | Role | Phone | + +------+ + | Fadi Goodrich DO | PCP | | + +------+ + Reason for Visit + + + | Reason | Comments | + + + | Update from Patient | | + + + | Postoperative | | | infection | | + + + Encounter Details +--------+ + + + + | Date | Type | Department | Care Team | Description | +--------+ + + + + | 04/12/ | Telephone | Dig[facility]ive Health | Ion Pandey, | Update from Patient; | | 2017 | | [place] [address] | MD [address] | Postoperative | | | | Ave Mailcode: [address] | [place], [place] | infection | | | | [facility] | [address] | | | | | and Healing, | [phone] | | | | | [place] [address] [facility] | | | | | | [place], [place] | | | | | | [address] | | | | | | [phone] | | | +--------+ + + + [...] Rd | | | | | | [place], [place] | | | | | | [address] | | | | | | [phone] | | | | | | | | +--------+ + + + + | 08/19/ | Surgery | Surgery | [facility], | OPEN VENTRAL HERNIA | | 2019 | | | MD Jorje [address] | REPAIR WITH | | | | | [address] | BIOLOGICAL MESH | | | | | [place], [place] | | | | | | [address] | | | | | | [phone] | | | | | | | | +--------+ + + + + | 09/15/ | Office | Cardiology | Randell Franks, | | | 2019 | Visit | | [address] | | | | | | [place], [place] | | | | | | [address] | | | | | | [phone] | | | | | | | | +--------+ + + + + documented as of this encounter Visit Diagnoses Not on filedocumented in this encounter"
--- OUTSIDE RECORDS SUMMARY | ~2019-06-25 | XMS | Encounter Summary ---
Demographics + + + | Address | [address] | | | [place] [address] | + + + | Home Phone | | + + + | Preferred Language | Unknown | + + + | Marital Status | | + + + | Worship Affiliation | Unknown | + + + | Race | Unknown | + + + | Ethnic Group | Unknown | + + + Author + + + | Author | [facility] | | | and [place] | + + + | Organization | [facility] | | | and [place] | + + + | Address | Unknown | + + + | Phone | Unavailable | + + + Support + + +---------+ + | Name | Relationship | Address | Phone | + + +---------+ + | Katalina Padilla | ECON | Unknown | Unavailable | + + +---------+ + | Ellie Barnett | ECON | Unknown | | + + +---------+ + Care Team Providers + +------+ + | Care Semiconductor Wafers Marker Name | Role | Phone | + +------+ + PCP | Unavailable | + +------+ + Encounter Details +--------+ + + + + | Date | Type | Department | Care Team | Description | +--------+ + + + + | 02/16/ | Orders Only | [facility] | Sulema Altamirano | | | 2017 | | CONVERSION [address] | [place], MEAT HOSTESS [address] | | | | | [address] | [place] | | | | | [place], [place] | [place] [address] | | | | | [address] | | | | | | [phone] | (Fax) | | +--------+ + + + + [...] this encounter Plan of Treatment Not on filedocumented as of this encounter Procedures + +--------+ + + + | Procedure Name | Priori | Date/Time | Associated Diagnosis | Comments | | | ty | | | | + +--------+ + + + | ECHO INTERPRETATION | Routin | 02/16/2017 | | Results for this | | OF OUTSIDE FILMS | e | 2:57 PM | | procedure are in the | | | | PDT | | results section. | + +--------+ + + + documented in this encounter Results ECHO Interpretation of Outside Films (02/16/2017 2:57 PM PDT) + + | Specimen | + + | | + + + + + | Impressions | Performed At | + + + | 1. Overall left ventricular systolic function is normal with, an EF | | | between 60 - 65 %. 2. The right ventricle is normal in size and | | | function. 3. No significant valvular abnormalities are noted. 4. In | | | comparison to the previous (technically difficult) echocardiographic | | | study done 01/02/2016, no signfiicant changes are noted. | | + + + + + + | Narrative | Performed At | + + + | Patient Name: Elzbieta Cristina Date of : 1975 | | | Performing Physician: BENJY HANKINS MD | | | | | | INDICATIONS RV dysfunction, edema CONCLUSIONS | | | 1. Overall left ventricular systolic function is normal | | | with, an EF between 60 - 65 %. 2. The right ventricle is normal in | | | size and function. 3. No significant valvular abnormalities are noted. | | | 4. In comparison to the previous (technically difficult) | | | echocardiographic study done 01/02/2016, no signfiicant changes are | | | noted. FINDINGS -------- ECG rhythm: Sinus rhythm. Study: A | | | 2-dimensional transthoracic echocardiogram with m-mode, spectral and | | | color flow Doppler was perfomed. Study: This was a technically | | | difficult, but interpretable, study with suboptimal parasternal and | | | apical views. Subcostal views were adequate. Left Ventricle: | | | Overall left ventricular systolic function is normal with, an EF | | | between 60 - 65 %. It was reported to be > 70% on the previous study. | | | Left Ventricle: The left ventricle cavity size is normal. Left | | | Ventricle: Left ventricular wall thickness is normal. Left Ventricle: | | | No regional wall motion abnormalities. Left Ventricle: Poor tissue | | | doppler signal prevents accurate assessment of diastolic function. | | | Right Ventricle: The right ventricle is normal in size and function. | | | Left Atrium: The left atrium is normal in size. Right Atrium: The | | | right atrium is normal in size. Aortic Valve: The aortic valve was | | | not well visualized. Aortic Valve: The aortic valve is mildly | | | calcified. Aortic Valve: There is no evidence of aortic | | | regurgitation. Aortic Valve: There is no evidence of aortic stenosis. | | | Mitral Valve: The mitral valve is normal. Mitral Valve: No mitral | | | valve prolapse, stenosis or regurgitation noted. Tricuspid Valve: The | | | tricuspid valve appears structurally normal. Tricuspid Valve: Trace | | | tricuspid regurgitation present. Tricuspid Valve: Pulmonary artery | | | systolic pressure could not be assessed due to the absence of adequate | | | TR jet. Pulmonic Valve: The pulmonic valve was not well visualized. | | | Pericardium: There is no pericardial effusion. IVC/Hepatic Veins: | | | The IVC is normal size (1.5-2.5cm) and collapses >50% with sniff, | | | consistent with central venous pressures of 5-10mmHg. Aorta: The | | | aortic root, ascending aorta and aortic arch are normal. Mass: No | | | mass visualized Thrombus: No clot visualized Thrombus: No vegetation | | | visualized. Septum: No ASD observed. Septum: No VSD observed. | | | MEASUREMENTS Ao asc: 3.22 cm Ao Diam: 3.69 cm | | | Ao sinus: 3.[address] junct: 3.11 cm IVC: 1.79 cm LA | | | Diam: 3.38 cm LA Major: 5.04 cm EDV(Teich): 109.97 ml | | | IVSd: 0.87 cm LVIDd: 4.84 cm LVPWd: 0.81 cm LVOT Area: | | | 3.98 cm2 LVOT Diam: 2.25 cm %FS: 32.91 % EF(Teich): 61.28 | | | % ESV(Teich): 42.57 ml LVIDs: 3.25 cm SV(Teich): 67.39 ml | | | RA Major: 4.75 cm RV Major: 7.05 cm RVIDd: 3.20 cm LVEF | | | MOD A2C: 61.26 % SV MOD A2C: 55.40 ml LVEF MOD A4C: 56.69 % | | | SV MOD A4C: 48.50 ml EF Biplane: 57.96 % LVEDV MOD BP: | | | 88.89 ml LVESV MOD BP: 37.36 ml LVEDV MOD A2C: 90.43 ml LVLd | | | A2C: 8.78 cm LVEDV MOD A4C: 85.56 ml LVLd A4C: 9.00 cm | | | LVESV MOD A2C: 35.03 ml LVLs A2C: 6.95 cm LVESV MOD A4C: | | | 37.05 ml LVLs A4C: 7.49 cm LAESV(A-L): 45.62 ml LAESV Index | | | (A-L): 20.64 ml/m2 LAAs A2C: 14.37 cm2 LAESV A-L A2C: 40.74 | | | ml LALs A2C: 4.30 cm LAAs A4C: 16.09 cm2 LAESV A-L A4C: | | | 43.02 ml LALs A4C: 5.10 cm RAAs: 13.58 cm2 RAESV A-L: | | | 33.08 ml RAESV MOD: 32.14 ml RALs: 4.73 cm TAPSE: 2.16 cm | | | AV maxP.33 mmHg AV meanP.31 mmHg AV Vmax: 1.60 | | | m/s AV Vmean: 1.08 m/s AV VTI: 25.19 cm ADALID Vmax: 2.75 cm2 | | | ADALID (VTI): 3.06 cm2 AVAI Vmax: 0.00 cm2/m2 AVAI (VTI): | | | 0.00 cm2/m2 LVOT maxP.93 mmHg LVOT meanP.50 mmHg LVSI | | | Dopp: 34.92 ml/m2 LVSV Dopp: 77.18 ml LVOT Vmax: 1.11 m/s | | | LVOT Vmean: 0.73 m/s LVOT VTI: 19.34 cm MV A Jeffrey: 0.81 m/s | | | MV DecT: 249.81 ms MV E Jeffrey: 0.82 m/s MV E/A Ratio: 1.01 | | | MV PHT: 72.44 ms MVA By PHT: 3.03 cm2 Septal e': 0.07 m/s | | | Septal E/e': 11.80 Lateral e': 0.14 m/s Lateral E/e': 5.71 | | | RAP: 5 mmHg Sorting Livestock Worker: JESSICA Authenticated by: BENJY | | | MD [facility] Report Date/Time: 02-16-2017 18:47:15 | | + + + + + | Procedure Note | + + | Aditya Rad Conversion - 03/17/2019 6:38 PM PDT Patient Name: Sherrell Cristina | | : 1975 Performing Physician: BENJY HANKINS, | | MD INDICATIONS R | | V dysfunction, edema CONCLUSIONS 1. Overall left ventricular systolic function | | is normal with, an EF between 60 - 65 %.2. The right ventricle is normal in size and | | function. 3. No significant valvular abnormalities are noted. 4. In comparison to the | | previous (technically difficult) echocardiographic study done 01/02/2016, no signfiicant | | changes are noted. FINDINGS--------ECG rhythm: Sinus rhythm.Study: A 2-dimensional | | transthoracic echocardiogram with m-mode, spectral and color flow Doppler was | | perfomed.Study: This was a technically difficult, but interpretable, study with | | suboptimal parasternal and apical views. Subcostal views were adequate.Left Ventricle: | | Overall left ventricular systolic function is normal with, an EF between 60 - 65 %. It | | was reported to be > 70% on the previous study.Left Ventricle: The left ventricle cavity | | size is normal.Left Ventricle: Left ventricular wall thickness is normal.Left | | Ventricle: No regional wall motion abnormalities.Left Ventricle: Poor tissue doppler | | signal prevents accurate assessment of diastolic function.Right Ventricle: The right | | ventricle is normal in size and function.Left Atrium: The left atrium is normal in | | size.Right Atrium: The right atrium is normal in size.Aortic Valve: The aortic valve was | | not well visualized.Aortic Valve: The aortic valve is mildly calcified.Aortic Valve: | | There is no evidence of aortic regurgitation.Aortic Valve: There is no evidence of | | aortic stenosis.Mitral Valve: The mitral valve is normal.Mitral Valve: No mitral valve | | prolapse, stenosis or regurgitation noted.Tricuspid Valve: The tricuspid valve appears | | structurally normal.Tricuspid Valve: Trace tricuspid regurgitation present.Tricuspid | | Valve: Pulmonary artery systolic pressure could not be assessed due to the absence of | | adequate TR jet.Pulmonic Valve: The pulmonic valve was not well visualized.Pericardium: | | There is no pericardial effusion.IVC/Hepatic Veins: The IVC is normal size (1.5-2.5cm) | | and collapses >50% with sniff, consistent with central venous pressures of | | 5-10mmHg.Aorta: The aortic root, ascending aorta and aortic arch are normal.Mass: No | | mass visualizedThrombus: No clot visualizedThrombus: No vegetation visualized.Septum: No | | ASD observed.Septum: No VSD observed. MEASUREMENTS Ao asc: 3.22 cmAo | | Diam: 3.69 cmAo sinus: 3.[address] junct: 3.11 cmIVC: 1.79 cmLA Diam: 3.38 | | cmLA Major: 5.04 cmEDV(Teich): 109.97 mlIVSd: 0.87 cmLVIDd: 4.84 cmLVPWd: 0.81 | | cmLVOT Area: 3.98 [id number] Diam: 2.25 cm%FS: 32.91 %EF(Teich): 61.28 | | %ESV(Teich): 42.57 mlLVIDs: 3.25 cmSV(Teich): 67.39 mlRA Major: 4.75 cmRV Major: | | 7.05 cmRVIDd: 3.20 cmLVEF MOD A2C: 61.26 %SV MOD A2C: 55.40 mlLVEF MOD A4C: | | 56.69 %SV MOD A4C: 48.50 mlEF Biplane: 57.96 %LVEDV MOD BP: 88.89 mlLVESV MOD BP: | | 37.36 mlLVEDV MOD A2C: 90.43 mlLVLd A2C: 8.78 cmLVEDV MOD A4C: 85.56 mlLVLd A4C: | | 9.00 cmLVESV MOD A2C: 35.03 mlLVLs A2C: 6.95 cmLVESV MOD A4C: 37.05 mlLVLs A4C: | | 7.49 cmLAESV(A-L): 45.62 mlLAESV Index (A-L): 20.64 ml/m2LAAs A2C: 14.37 | | [id number] A-L A2C: 40.74 mlLALs A2C: 4.30 cmLAAs A4C: 16.09 [id number] A-L A4C: | | 43.02 mlLALs A4C: 5.10 cmRAAs: 13.58 [id number] A-L: 33.08 mlRAESV MOD: 32.14 | | mlRALs: 4.73 cmTAPSE: 2.16 cmAV maxP.33 mmHgAV meanP.31 mmHgAV Vmax: | | 1.60 m/Genesis Vmean: 1.08 m/Genesis VTI: 25.19 cmAVA Vmax: 2.75 cm2AVA (VTI): 3.06 | | [id number] Vmax: 0.00 cm2/m2AVAI (VTI): 0.00 cm2/m2LVOT maxP.93 mmHgLVOT meanPG: | | 2.50 mmHgLVSI Dopp: 34.92 ml/m2LVSV Dopp: 77.18 mlLVOT Vmax: 1.11 m/sLVOT Vmean: | | 0.73 m/sLVOT VTI: 19.34 cmMV A Jeffrey: 0.81 m/sMV DecT: 249.81 msMV E Jeffrey: 0.82 | | m/sMV E/A Ratio: 1.01MV PHT: 72.44 msMVA By PHT: 3.03 gu0Ydonob e': 0.07 | | m/sSeptal E/e': 11.80Lateral e': 0.14 m/sLateral E/e': 5.71RAP: 5 mmHg | | Sorting Livestock Worker: HONEYuthenticated by: Shirley SILVER Date/Time: 02-16-2017 18:47:15 | | IMPRESSION: 1. Overall left ventricular systolic function is normal with, an EF between | | 60 - 65 %.2. The right ventricle is normal in size and function. 3. No significant | | valvular abnormalities are noted. 4. In comparison to the previous (technically | | difficult) echocardiographic study done 01/02/2016, no signfiicant changes are noted. | |Ao sinus: 3.43 cm | |Ao st junct: 3.11 cm | |IVC: 1.79 cm | |LA Diam: 3.38 cm | |LA Major: 5.04 cm | |EDV(Teich): 109.97 ml | |IVSd: 0.87 cm | |LVIDd: 4.84 cm | |LVPWd: 0.81 cm | |LVOT Area: 3.98 cm2 | |LVOT Diam: 2.25 cm | |%FS: 32.91 % | |EF(Teich): 61.28 % | |ESV(Teich): 42.57 ml | |LVIDs: 3.25 cm | |SV(Teich): 67.39 ml | |RA Major: 4.75 cm | |RV Major: 7.05 cm | |RVIDd: 3.20 cm | |LVEF MOD A2C: 61.26 % | |SV MOD A2C: 55.40 ml | |LVEF MOD A4C: 56.69 % | |SV MOD A4C: 48.50 ml | |EF Biplane: 57.96 % | |LVEDV MOD BP: 88.89 ml | |LVESV MOD BP: 37.36 ml | |LVEDV MOD A2C: 90.43 ml | |LVLd A2C: 8.78 cm | |LVEDV MOD A4C: 85.56 ml | |LVLd A4C: 9.00 cm | |LVESV MOD A2C: 35.03 ml | |LVLs A2C: 6.95 cm | |LVESV MOD A4C: 37.05 ml | |LVLs A4C: 7.49 cm | |LAESV(A-L): 45.62 ml | |LAESV Index (A-L): 20.64 ml/m2 | |LAAs A2C: 14.37 cm2 | |LAESV A-L A2C: 40.74 ml | |LALs A2C: 4.30 cm | |LAAs A4C: 16.09 cm2 | |LAESV A-L A4C: 43.02 ml | |LALs A4C: 5.10 cm | |RAAs: 13.58 cm2 | |RAESV A-L: 33.08 ml | |RAESV MOD: 32.14 ml | |RALs: 4.73 cm | |TAPSE: 2.16 cm | |AV maxP.33 mmHg | |AV meanP.31 mmHg | |AV Vmax: 1.60 m/s | |AV Vmean: 1.08 m/s | |AV VTI: 25.19 cm | |ADALID Vmax: 2.75 cm2 | |ADALID (VTI): 3.06 cm2 | |AVAI Vmax: 0.00 cm2/m2 | |AVAI (VTI): 0.00 cm2/m2 | |LVOT maxP.93 mmHg | |LVOT meanP.50 mmHg | |LVSI Dopp: 34.92 ml/m2 | |LVSV Dopp: 77.18 ml | |LVOT Vmax: 1.11 m/s | |LVOT Vmean: 0.73 m/s | |LVOT VTI: 19.34 cm | |MV A Jeffrey: 0.81 m/s | |MV DecT: 249.81 ms | |MV E Jeffrey: 0.82 m/s | |MV E/A Ratio: 1.01 | |MV PHT: 72.44 ms | |MVA By PHT: 3.03 cm2 | |Septal e': 0.07 m/s | |Septal E/e': 11.80 | |Lateral e': 0.14 m/s | |Lateral E/e': 5.71 | |RAP: 5 mmHg | | | |Sorting Livestock Worker: | |Authenticated by: BENJY HANKINS MD | |Report Date/Time: 02-16-2017 18:47:15 | | | |IMPRESSION: | |1. Overall left ventricular systolic function is normal with, an EF between 60 - 65 %. | |2. The right ventricle is normal in size and function. 3. No significant valvular abnormali ties are noted. 4. In comparison to the previous (technically difficult) echocardiographic s rachel done 01/02/2016, no signfiicant changes are noted. | + + documented in this encounter Visit Diagnoses Not on filedocumented in this encounter"
--- OUTSIDE RECORDS SUMMARY | ~2019-06-25 | XMS | Encounter Summary ---
Demographics + + + | Address | [address] | | | [place] [address] | + + + | Home Phone | | + + + | Preferred Language | Unknown | + + + | Marital Status | Single | + + + | Religion Affiliation | NON | + + + [...] [place], [place] | | | | | [address] | | + + + + + | Ellie Vang | ECON | Unknown | | + + + + + Care Team Providers + +------+ + | Care Childcare Center Administrator Name | Role | Phone | + +------+ + | Kenyatta Cardenas MD | PCP | | + +------+ + Encounter Details +--------+--------+ + + + | Date | Type | Department | Care Team | Description | +--------+--------+ + + + | 03/01/ | Travel | | | | | [...] Acute Care | Chilo, | | | 2020 | Encounter | | MD Jorje [address] | | | | | | [address] | | | | | | [place], [place] | | | | | | [address] | | | | | | [phone] | | | | | | | | +--------+ + + + + | 08/19/ | Surgery | Surgery | Chiol, | [facility] | | 2019 | | | MD Jorje [address] | REPAIR WITH | | | | | [address] | BIOLOGICAL MESH | | | | | [place], [place] | | | | | | [address] | | | | | | [phone] | | | | | | | | +--------+ + + + + | 09/15/ | Office | Cardiology | Randell Franks, | | | 2019 | Visit | | [address] | | | | | | [place], [place] | | | | | | [address] | | | | | | [phone] | | | | | | | | +--------+ + + + + documented as of this encounter Visit Diagnoses Not on filedocumented in this encounter"
--- OUTSIDE RECORDS SUMMARY | ~2019-06-25 | XMS | Encounter Summary ---
Demographics + + + | Address | [address] | | | [place] [address] | + + + | Home Phone [...] + | Katalina Padilla | ECON | [address] | | | | | [place], [place] | | | | | [address] | | + + + + + | Ellie Vang | ECON | Unknown | | + + + + + Care Team Providers + +------+ + | Care Wool Classer Name | Role | Phone | + +------+ + | Kenyatta Cardenas MD | PCP | | + +------+ + Encounter Details +--------+ + + + + | Date | Type | Department | Care Team | Description | +--------+ + + + + | 06/02/ | Anesthesia | Preoperative | Vinnie, Aide, RN | | | 2019 | Event | Medicine Clinic at | [place], [place] | | | | | [facility] | [address] | | | | | [address] | | | | | | Mail Code: OC8PM | | | | | | [facility] | | | | | | and Healing, | | | | | | [address] | | | | | | [place], [place] | | | | | | [address] | | | | | | [phone] | | | +--------+ + + + + Anesthesia Record + + + + + | Procedure Name | Responsible | Anesthesia Start | Anesthesia Stop Time | | | Anesthesiologist | Time | | + + + + + | PREANESTHETIC | | | | | EVALUATION | | | | + + + [...] documented in this encounter Social History + + + +--------+------+ | [...] [address] | | | | | | [place], [place] | | | | | | [address] | | | | | | [phone] | | | | | | | | +--------+ + + + + | 08/19/ | Surgery | Surgery | Chilo, | [facility]IA | | 2019 | | | MD Jorje [address] | REPAIR WITH | | | | | [address] | BIOLOGICAL MESH | | | | | [place] | | | | | | [address] | | | | | | [phone] | | | | | | | | +--------+ + + + + | 09/15/ | Office | Cardiology | Randell Franks, | | | 2019 | Visit | | [address] | | | | | | [place] | | | | | | [address] | | | | | | [phone] | | | | | | | | +--------+ + + + + documented as of this encounter Visit Diagnoses Not on filedocumented in this encounter"
--- OUTSIDE RECORDS SUMMARY | ~2019-06-25 | XMS | Encounter Summary ---
Demographics + + + | Address | [address] | | | [place] [address] | + + + | Home Phone [...] + | Katalina Padilla | ECON | [address] | | | | | [place], [place] | | | | | [address] | | + + + + + | Ellie Vang | ECON | Unknown | | + + + + + Care Team Providers + +------+ + | Care Automation Qa Lead Name | Role | Phone | + +------+ + | Kenyatta Cardenas MD | PCP | | + +------+ + Encounter Details +--------+---------+ + + + | Date | Type | Department | Care Team | Description | +--------+---------+ + + + | 06/14/ | Office | Cardiology | Randell Franks, | Type 2 diabetes | | 2019 | Visit | Preventive at [facility] | MD Deion Farris | mellitus without | | | | [address] | Ave [place], [place] | complication, with | | | | Mailcode: [facility] | [address] | long-term current | | | | [facility] | [phone] | use of insulin (HCC) | | | | and Healing, | | (Primary Dx); | | | | Building [address] | | Morbid obesity with | | | | [place], [place] | | BMI of 70 and over, | | | | [address] | | adult (HCC) | | | | [phone] | | | +--------+---------+ + + + [...] + + + | Blood Pressure | 124/74 | 01/07/2019 9:05 AM | | | | | PDT | | + + + + + | Pulse | 81 | 01/07/2019 9:05 AM | | | | | PDT | | + + + + + | Temperature | 36.8 C (98.3 F) | 01/07/2019 9:05 AM | | | | | PDT | | + + + + + | Respiratory Rate | - | - | | + + + + + | Oxygen Saturation | 99% | 01/07/2019 9:05 AM | | | | | PDT | | + + + + + | Inhaled Oxygen | - | - | | | Concentration | | | | + + + + + | Weight | 123 kg (271 lb 1.6 | 01/07/2019 9:05 AM | | | | oz) | PDT | | + + + + + | Height | 149.9 cm (4' 11") | 01/07/2019 9:05 AM | | | | | PDT | | + + + + + | Body Mass Index | 54.76 | 01/07/2019 9:05 AM | | | | | PDT [...] documented as of this encounter Progress Notes Randell Franks MD - 01/07/2019 9:15 AM PDTFormatting of this note might be different f rom the original. Reason for visit: Follow-up T2DM and weight management PCP: Kenyatta Cardenas MD Patient Active Problem List Diagnosis Date Noted Anasarca 11/06/2015 Priority: 1 Acute DVT (deep venous [...] Note: Cannot tolerate CPAP Severe Morbid obesity ([facility]), BMI 88 11/12/2012 Priority: 4 Overview Note: Lifetime max: 495 lbs Phentermine started Type 2 diabetes mellitus ([facility]) 04/14/2013 Priority: 5 Iron deficiency anemia due to chronic blood loss 11/11/2015 Priority: 6 Overview Note: Ferritin 18 on 10/2015 Hypoalbuminemia (no proteinuria, need to rule out synthetic, nutrition, loss) 6 Priority: 6 Hypothyroidism 08/28/2014 Priority: 8 Morbid obesity with BMI of 70 and over, adult ([facility]) 02/02/2017 Chronic diastolic heart failure (HCC) 02/02/2017 Immobility 02/02/2017 Severe muscle deconditioning 02/02/2017 Personal history of DVT (deep vein thrombosis) 02/02/2017 History of pulmonary embolism 02/02/2017 AMARA treated with BiPAP 02/02/2017 Benign essential HTN 02/02/2017 Diabetes mellitus type 2 without retinopathy (HCC) 02/02/2017 Hyperlipidemia 02/02/2017 Ventral hernia without obstruction [...] hernia 06/16/2013 Hernia 11/05/2012 Medications: Current Outpatient Medications Medication Sig ascorbic acid (vitamin C) (VITAMIN C) 500 mg oral tablet Take 1 tablet by mouth once da mireya. aspirin EC 81 mg oral tablet,delayed release (DR/EC) Take 81 mg by mouth once daily. atenolol 25 mg oral tablet Take 50 mg by mouth once daily. BELBUCA 300 mcg buccal film CALCIUM [id number]&DER-Q2-LET86-GENIS ORAL Take 2 tablets by mouth two times daily. cloNIDine HCl 0.2 mg oral tablet Take 0.2 mg by mouth two times daily. CYANOCOBALAMIN (VITAMIN [...] Take 1 tablet by mouth once daily. gabapentin 300 mg oral capsule Take 300 mg by mouth four times daily. hydrOXYzine pamoate 25 mg oral capsule Take 25 mg by mouth every four hours as needed. Lactobac 40/Bifido 3/S.thermop (PROBIOTIC ORAL) Take by mouth. lurasidone (LATUDA) 20 mg oral tablet Take 40 mg by mouth once daily. magnesium oxide 400 mg oral tablet Take 400 mg by mouth once daily. metFORMIN 1,000 mg oral tablet two times daily. See directions below mirtazapine 15 mg oral tablet Take 15 mg by mouth once daily in the evening. nystatin 100,000 unit/gram topical powder Apply to affected area two times daily. Apply to candidal lesions until lesions have healed. PARoxetine 10 mg oral tablet Take 40 mg by mouth once daily. PHENTERMINE 37.5 mg oral tablet TAKE 1 TABLET BY MOUTH ONCE DAILY IN THE MORNING potassium chloride 20 mEq oral packet Take [...] current facility-administered medications for this visit. S: Dylan returns in follow-up of obesity and T2DM. She underwent gastric bypass surgery r oughly 9 months ago and, following a period of vomiting that resolved with dilation of an es ophageal stricture, she has lost approximately 100 pounds since then in addition to her weig ht loss associated with the phentermine dosage. During this time she is come off her diabet es medicines except for a small dose of metformin, and she reports her last imyck-hc-elsv A1 c was 5.5% on this dose. She was recently seen by the bariatric surgery team and because of her rapid weight loss gricelda yesenia was advised to stop the topiramate. She reminded us today that this is something she had been on prior to even coming to the weight management group for migraine headaches, which rodrigues ve subsequently reemerged and she is asking to start topiramate back up again. She now is having difficulty with ambulation due to her large pannus and being thrown off b alance. 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 Her primary concern today is heat intolerance which is making her feel uncomfortable. Othe rwise she reports no new medical conditions, concerns, or changes in medications. ROS: No CP O: vitals BP 124/74 (BP Location: Left lower arm, Patient Position: Sitting) | Pulse 81 | Temp 36.8 C (98.3 F) (Oral) | Ht 1.499 m (4' 11") | Wt 123 kg (271 lb 1.6 oz) | SpO2 99% | BMI 54.76 kg/m | BSA 2.26 m PE: Gen: pleasant, NAD, crying and obviously frustrated Abd: Large pendulous pannus. Ext: Massive edema bilaterally in her legs. No phill cellulitis noted very tender to touch . Skin: Her upper arms, hips and thighs have a characteristic appearance of lipedema with ca scading folds of fat intermixed with what appears to be vascular tissue. Labs: Results for DYLAN CRISTINA ( ) as of 01/07/2019 09:53 05/27/2018 16:01 06/23/2018 14:11 10/12/2018 15:29 SODIUM, PLASMA (LAB) 140 143 140 POTASSIUM, PLASMA (LAB) 3.0 (L) 3.7 3.7 POTASSIUM CMNT No Hemo No Hemo CHLORIDE, PLASMA (LAB) 102 102 109 (H) TOTAL CO2, PLASMA (LAB) 27 28 ANION GAP 11 3 (L) ANION GAP(ALB CORRECTED) 13 (H) 5 BUN, PLASMA (LAB) 11 9 CREATININE PLASMA (LAB) 0.85 0.70 EGFR - CENTRAL AFRICAN >60 >60 EGFR NON -CENTRAL AFRICAN >60 >60 GLUCOSE, PLASMA (LAB) 123 (H) 103 (H) GLUCOSE,WHOLE BLOOD 106 (H) CALCIUM, PLASMA (LAB) 9.7 9.1 CALCIUM(ALB CORRECTED) 10.3 (H) 9.8 LEV ICA, WHOLE BLD 1.22 AST(SGOT) 34 26 AST CMNT No Hemo No Hemo ALT (SGPT) 36 26 ALK PHOS 128 (H) 147 (H) BILIRUBIN TOTAL 0.6 0.5 BILI T CMNT No Hemo No Hemo TOTAL PROTEIN, PLASMA (LAB) 8.5 (H) 7.7 ALBUMIN, PLASMA (LAB) 3.2 (L) 3.1 (L) LACTATE VENOUS, POC 1.3 ZINC SERUM 58 (L) METHYLMALONIC ACID 0.29 VITAMIN E (ALPHA NOAH), SERUM 9.3 VITAMIN D 25 HYDROXY 88.6 (H) 56.0 RETINOL (VITAMIN A) 0.61 RETINYL PALMATATE 0.02 VITAMIN E (YEN NOAH) SERUM 1.7 INTERPRETATION (VIT A) Normal VITAMIN B1, WHOLE BLOOD 100 128 COPPER SERUM 133 CHOLESTEROL (LAB) 142 TRIGLYCERIDES 172 (H) HDL CHOLESTEROL 47 HDL CMNT No Hemo LDL CHOLEST 61 VLDL CHOLESTEROL 34 (H) NON-HDL CHOLESTEROL 95 PTH, SERUM 206 (H) 265 (H) HEMOGLOBIN A1C 6.1 (H) HOMOCYSTEINE,PLASMA,TOTAL 8.0 WHITE CELL COUNT 12.50 (H) 11.64 (H) RED CELL COUNT 6.05 (H) 5.13 HEMOGLOBIN 16.3 (H) 14.8 HEMATOCRIT 50.4 (H) 45.2 46.1 (H) MCV 83.3 89.9 MCHC 32.3 32.1 RDW SD 43.5 41.8 PLATELET COUNT 318 327 ssessment: 1) HFpEF: This is currently being managed well by her Obstetrician/Gynecologist with diuretics and main tenance of her massive weight loss. Further weight loss should continue to improve this even more. 2) T2 Diabetes: Her A1c in the normal range on a low-dose of metformin and to reduce her ov erall medication burden I did recommend she stop this now. 3) Morbid obesity: She is having a remarkable weight loss response so far to the combinatio n of bariatric surgery and medical weight loss options. Her weight is now roughly 50% below her lifetime maximum and will reinstate the topiramate for migraine prophylaxis. If she rodrigues s excessive weight loss, and her BMI today is still 54, then may consider reducing her dose of phentermine instead to allow her to have the benefits of reduced migraine episodes. 4) Hypothyroidism: It is possible with her weight loss that her current thyroid hormone dos e is excessive and causing her the heat intolerance. Will check TSH and if low then recomme nd she stop the Cytomel. 5) LIpedema: Will need liposuction after her RYGB. 6) Hyperparathyroidism: This is most likely due to poor calcium absorption since her last v itamin D level was good. I will go ahead and check a 24-hour urine calcium excretion rate a nd if low then we will need to increase her calcium replacement dose from 2 tablets twice a day probably to 4 tablets twice a day. We can follow her urine calcium excretion and contin ue to adjust this until goes into the normal range. Plan: 1) Continue healthy diet and activity as tolerated 2) Continue management of her heart failure by her Obstetrician/Gynecologist 3) discontinue metformin 4) check 24 urine calcium and creatinine 5) Continue phentermine 37.5 mg a day 6) restart topiramate 50 mg twice daily and go up to 100 mg twice daily as tolerated 7) Follow-up with the above results and recommendations and again in 6 monthsElectronicall y signed by Randell Franks MD at 01/07/2019 10:37 AM PDTdocumented in this encounter Plan of Treatment +--------+ [...] Rd | | | | | | [place], [place] | | | | | | [address] | | | | | | [phone] | | | | | | | | +--------+ + + + + | 08/19/ | Surgery | Surgery | Chilo, | OPEN VENTRAL HERNIA | | 2019 | | | MD Jorje [address] | REPAIR WITH | | | | | [address] | BIOLOGICAL MESH | | | | | [place], [place] | | | | | | [address] | | | | | | [phone] | | | | | | | | +--------+ + + + + | 09/15/ | Office | Cardiology | Randell Franks, | | | 2019 | Visit | | MD [address] | | | | | | [place], [place] | | | | | | [address] | | | | | | [phone] | | | | | | | | +--------+ + + + + + +------+--------+ + + | Name | Type | Priori | Associated Diagnoses | Order Schedule | | | | ty | | | + +------+--------+ + + | CREATININE, URINE | Lab | Routin | Type 2 diabetes | Ordered: 01/07/2019 | | | | e | mellitus without | | | | | | complication, with | | | | | | long-term current | | | | | | use of insulin (HCC) | | | | | | Morbid obesity | | | | | | with BMI of 70 and | | | | | | over, adult (HCC) | | + +------+--------+ + + | TSH | Lab | Routin | Type 2 diabetes | Ordered: 01/07/2019 | | | | e | mellitus without | | | | | | complication, with | | | | | | long-term current | | | | | | use of insulin (HCC) | | | | | | Morbid obesity | | | | | | with BMI of 70 and | | | | | | over, adult (HCC) | | + +------+--------+ + + documented as of this encounter Procedures + +--------+ + + + | Procedure Name | Priori | Date/Time | Associated Diagnosis | Comments | | | ty | | | | + +--------+ + + + | CALCIUM, URINE | Routin | 01/19/2019 | Type 2 diabetes | Results for this | | | e | | mellitus without | procedure are in the | | | | | complication, with | results section. | | | | | long-term current | | | | | | use of insulin (HCC) | | | | | | Morbid obesity | | | | | | with BMI of 70 and | | | | | | over, adult (HCC) | | + +--------+ + + + documented in this encounter Results CALCIUM, URINE (01/19/2019) + +---------+ + + + | Component | Value | Ref Range | Performed | Pathologist | | | | | At | Signature | + +---------+ + + + | CALCIUM, | 372 (A) | 100 - 250 | [facility] | | | URINE | | mg/24hr | LAB - | | | | | | [place] | | + +---------+ + + + | TOTAL | 3,000 | mL | [facility] | | | VOLUME | | | LAB - | | | | | | [place] | | + +---------+ + + + + + | Specimen | + + | Urine - Urine | | (substance) | + + + + + + + | Performing | Address | City/State/Zipcode | Phone Number | | Organization | | | | + + + + + | [facility] - | [address] | [place] | [phone] | | [place] | | | | + + + [...]
--- OUTSIDE RECORDS SUMMARY | ~2019-06-25 | XMS | Encounter Summary ---
Demographics + + + | Address | [address] | | | [place] [address] | + + + | Home Phone [...] [place], [place] | | | | | [address] | | + + + + + | Ellie Vang | ECON | Unknown | | + + + + + Care Team Providers + +------+ + | Care Inseamer Name | Role | Phone | + +------+ + | Fadi Goodrihc DO | PCP | | + +------+ [...] | HA Roldan | | | with ARTIFICIAL INSEMINATOR | | hypertension | [address] | [address] | | | | | Right | [address] | [place] | | | | | heart | [place], [place] | Ha [facility], | | | | | failure | [address] | [place] | | | | | ([facility]) Type | Phone: | [phone] | | | | | 2 diabetes | [phone] | | | | | | mellitus | Fax: | | | | | | without | [phone] | | | | | | complication | | | | | | | , with | | | | | | | long-term | | | | | | | current use | | | | | | | of insulin | | | | | | | ([facility]) | | | +--------+ + + + + + Encounter Details +--------+---------+ + + + | Date | Type | Department | Care Team | Description | +--------+---------+ + + + | 05/27/ | Office | Digestive Health | Tejas Cevallos, | History of Frandy-en-Y | | 2018 | Visit | [facility] [address] | gastric bypass | | | | [address] | [facility] [address] | (Primary Dx); | | | | Mailcode: Center | [place], [place] | 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[facility] and | [address] | 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, 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) | | | | [place], [place] | | | | | | [address] | | | | | | [phone] | | | +--------+---------+ + + + [...] + + + + | Weight | 145 kg (319 lb 9.6 | 05/27/2018 2:37 PM | | | | oz) | PDT | | + + + + + | Height | - | - | | + + + + + | Body Mass Index | 64.55 | 04/01/2018 11:08 AM | | | [...] documented as of this encounter Progress Notes Tejas Cevallos, HA - 05/27/2018 2:30 PM PDTFormatting of this note might be different fr om the original. Nutrition Counseling: Post-op Bariatric Surgery Follow-Up Patient referred by: Randell Franks MD [address] [place] [address] Documented time of visit: 2:36pm to 2:49 (13 minutes ckcn-dv-chca with patient) Surgery: Gastric Bypass Date of Surgery: 03/01/18 Subjective: Pt with ongoing nausea and vomiting despite compliance with diet. Notes that sh e has decreased portion sizes, but still having difficulty even with a couple bites worth of food. Any reported changes: N/v when trying new foods; in general nausea with all po intake- taki ng Zofran but does not help Tolerating Bariatric Diet: Limited - only able to keep water, cream soups, yogurt, ground b eef, cream of wheat Current Physical Activity: walking Changes in Diabetes Medications since surgery: oral - appt with record label intern on the 9th Testing blood glucose: 92 mg/dl Objective: Ht Readings from Last 1 Encounters: 04/01/18 1.499 m (4' 11") Wt Readings from Last 2 Encounters: 05/27/18 145 kg (319 lb 9.6 oz) 04/01/18 157.9 kg (348 lb) 03/10/18 163.9 kg (361 lb 4.8 oz) 03/01/18 169.1 kg (372 lb 12.8 oz) Body mass index is 64.55 kg/m. Weight change since surgery: down 53 lbs PMHx: Past Medical History: Diagnosis Date [...] corporis UTI (urinary tract infection) Food logs: Yes - pen and paper Food choices: pork chops, karen, cauliflower, chicken, less than 1 oz ground beef, cream of wheat, cream of mushroom, [place] citizen yogurt Fluid choices: water Supplementation: Flinstones, iron, vitamin D, vitamin C, Citracal supplement x 2 in the mor eusebio and 2 at night, magnesium, potassium, B12, probiotic gummies Assessment: Following Bariatric Diet Protocol: Yes Meeting protein goals: No- Planning on trying to add unflavored protein powder to soup and try protein water Meeting fluid goals: Yes Fluids from meals: Yes Plan: Reviewed nutrition goals after bariatric surgery. Aim for 64 ounces of fluid and 60-80 grams of protein per day. Continue to follow post-surgery bariatric diet progression: Begin stage 4 according to pérez atric diet guidelines -Provided written & verbal education/review of stage 4 guidelines -Can begin gradually adding lean red meats, raw/crunchy foods, bread, rice, & pasta -Continue to eat protein foods first; stop eating as soon as you begin to feel full -Choose foods with < 14 g sugar & < 5 g fat per serving -Continue fluids from meals by 30 minutes before & after Continue vitamin & mineral supplementation per post-bariatric surgery guidelines -complete multivitamin & mineral (with iron) supplement, 2/day -8628-6621 mg calcium citrate with vitamin D/day (take in divided doses, not within 2 hour s of multivitamin or iron supplement) -500 mcg/day sublingual B12 supplement (or monthly injections) Continued to reinforce importance of mindful eating. Continue to increase physical activity. Follow up in 3 months or earlier as needed. Tejas Cevallos RD, LD Pager # [phone] signed by Tejas Cevallos RD at 05/27/2018 3:07 PM PDTdocument ed in this encounter Plan of Treatment +--------+ [...] Rd | | | | | | [place], [place] | | | | | | [address] | | | | | | [phone] | | | | | | | | +--------+ + + + + | 08/19/ | Surgery | Surgery | Chilo, | OPEN VENTRAL HERNIA | | 2019 | | | MD Demond [address] | REPAIR WITH | | | | | [address] | BIOLOGICAL MESH | | | | | [place], [place] | | | | | | [address] | | | | | | [phone] | | | | | | | | +--------+ + + + + | 09/15/ | Office | Cardiology | Randell Franks, | | | 2020 | Visit | | [address] | | | | | | [place], [place] | | | | | | [address] | | | | | | [phone] | | | | | | | | +--------+ + + + + documented as of this encounter Procedures + +--------+ + + + | Procedure Name | Priori | Date/Time | Associated Diagnosis | Comments | | | ty | | | | + +--------+ + + + | MT MNT RE-ASSESSMNT | Routin | 05/27/2018 | Diabetes mellitus | | | X15MIN | e | 3:06 PM | 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| PDT | retinopathy (HCC) | | | | | | History of Frandy-en-Y | | | | | | gastric bypass | | + +--------+ + + + documented in this encounter Visit Diagnoses + + | Diagnosis | + + | History of Frandy-en-Y gastric bypass - Primary Bariatric surgery status | + + | Diabetes mellitus type 2 without retinopathy (HCC) Type II or unspecified type |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 without mention of complication, not stated as uncontrolled | + + documented in this encounter
--- OUTSIDE RECORDS SUMMARY | ~2019-06-25 | XMS | Encounter Summary ---
Demographics + + + | Address | [address] | | | [place] [address] | + + + | Home Phone [...] + | Katalina Padilla | ECON | [address] | | | | | [place], [place] | | | | | [address] | | + + + + + | Ellie Vang | ECON | Unknown | | + + + + + Care Team Providers + +------+ + | Care Grease Monkey Name | Role | Phone | + [...] | [facility] | | | with ASSEMBLER [employer]ODUCT | | hypertension | [address] | | | | | Right | [address] | [address] | | | | | heart | [place], [place] | Mailcode: | | | | | failure | [address] | Center for | | | | | ([facility]) Type | Phone: | Health and | | | | | 2 diabetes | [phone] | Healing, | | | | | mellitus | Fax: | Building 2 | | | | | without | [phone] | [place], [place] | | | | | complication | | [address] | | | | | , with | | Phone: | | | | | long-term | | | | | | | current use | | Fax: | | | | | of insulin | | [phone] | | | | | ([facility]) | | | | | [...] 2019 | Visit | Center at [facility] [address] | 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 Cardenas in [facility]. Bariatric Measures: Activity: walking 1.5-2 miles daily [...] index of 70 and over in adult ([facility]) Myalgia and myositis Nausea Neck pain Numbness Osteoarthritis of knee Palpitations Pneumonia Shortness of breath Staphylococcal infection Stroke ([facility]) TIA (transient ischemic attack) due to Bromocriptine Tinea corporis UTI (urinary tract infection) Past Surgical History Procedure Laterality Date Tonsillectomy and adenoidectomy Appendectomy, open 2010 Umbilical hernia repair 2010 Treatment of ankle fracture with screws remaining Incision and drainage of wound abscess x2 midline transverse wound s/p open appendectomy 2010 Ventral hernia repair 10/2012 Dr. Andie Brian Incisional hernia repair 03/01/2015 [facility]/ Dr. Cantu. Primary fascial closure and scar excision Lap gastric byp, and nilesh-en-y gastroenterostomy w/ nilesh limb 150 cm or less [address] [facility] [address] Social History Social History Marital status: [...] History Narrative Updated 11/09/15 She lives in [place] with her mother and her sister (also her caregiver) lives in an apa rtment/duplex below. She has 2 grandchildren (age 4 and 7) who live with her daughter and son-in-law Her boyfriend lives in [place] HFpEF, DM2, HTN, Sleep Apnea (unable to [...] program here and refer her to our emergency medicine specialist who also has expertise in physical [...] tongue once daily., Disp: , Rfl: CALCIUM [id number]-[id number]-GENIS ORAL, Take 2 tablets by mouth two [...] n/a -HTN: still on medications -Diabetes: seeing endoscopy tech in December, hopes to eliminate Metformin then as recent A1c was normal Return to bariatric clinic in 6 months for 1 year follow up visit See your primary care provider for adjusting any other medications. Call if any abdominal pain, n/v/d or other issues. Pt agrees to plan and will call and/or send [employer] message if any issues. Start time 2:45, end time 3:10. I spent a total of 25 minutes face to face with this patie nt. Over 50% of visit was in counseling. HILDA Davalos Bariatric Surgery Nurse Practitioner [facility] | [address] | [place], [place] | [address] | documented in this encounter Plan of [...] Rd | | | | | | [facility] [place] | | | | | | [address] | | | | | | [phone] | | | | | | | | +--------+ + + + + | 08/19/ | Surgery | Surgery | Chilo, | OPEN VENTRAL HERNIA | | 2019 | | | MD [address] | REPAIR WITH | | | | | [address] | BIOLOGICAL MESH | | | | | [place], [place] | | | | | | [address] | | | | | | [phone] | | | | | | | | +--------+ + + + + | 09/15/ | Office | Cardiology | Randell Franks, | | | 2020 | Visit | | [address] | | | | | | [place], [place] | | | | | | [address] | | | | | | [phone] | | | | | | | [...] [facility] | [address] | [place] [address] | | | SERVICES, CORE | PARK [...] | + + + + + | [facility] | [address] [facility] | [place] [address] | | | SERVICES, [facility] | [address] | | | + [...] [facility] | | | | determined by [facility] | | | | | | Laboratories. See | | | | | | Compliance Statement B: | | | | | | C[facility].Innovega/CSPerformed | | | | | | by Giiv,[address] | | | | | | Liliana Martinez, [facility],[place] | | | | | | [address] | | | | | | [phone].[employer]. | | | | | | comIsmael [...] [facility] | [address] | [place], [place] | | | UNIV PTH - INTFC | | [address] | | + + + + + [...] | | | | | determined by [facility] | | | | | | Laboratories. See | | | | | | Compliance Statement B: | | | | | | Cenzic.Innovega/CSPerformed | | | | | | by [address]iv,[address] | | | | | | [facility] | | | | | | [address] | | | | | | [phone].[employer]. | | | | | | spanish fork hospitalIsmael MD, | | | | | [...] + + | [facility] | [address] [facility] | [place], [place] | | | UNIV PTH - INTFC | | [address] | | + + + + + [...] [facility] | | | (YEN NOAH) | [facility],[address] | | REG UNIV | | | SERUM | Liliana Martinez, [facility],[place] | | PTH - INTFC | | | | [address] | | | | | | [phone].aruplab. | | | | | | Ismael [...] B: | | | | | | Xdynia/CS | | | | + + + + + + + + | Specimen | + + | Blood - Blood | | (substance) | + + + + + + + | Performing | Address | City/State/Zipcode | Phone Number | | Organization | | | | + + + + + | [facility] | [address] | [place], [place] | | | UNIV PTH - INTFC | | [address] | | + + + + + [...] [facility] | [address] | [place] [address] | | | SERVICES, CORE | PARK [...] + + + + + | [facility] | [address] | [place] [address] | | | SERVICES, CORE | CLARENCE [...] INTERPRETIVE | 70 - 180 nmol/L | [facility] | | | WHOLE | INFORMATION: Vitamin [...] | | | | | determined by [facility] | | | | | | Laboratories. See | | | | | | Compliance Statement B: | | | | | | Cenzic.Innovega/CSPerformed | | | | | | by Giiv,[address] | | | | | | [place], [place] | | | | | | [address] | | | | | | [phone].[employer]. | | | | | | sp[facility] fork hospitalIsmael MD, | | | | | [...] [facility] | [address] | [place], [place] | | | UNIV PTH - INTFC | | [address] | | + + + + + [...] | + + + + + | [facility] | [address] | [place] [address] | | | SERVICES, CORE | PARK [...] | | | | | determined by [facility] | | | | | | Laboratories. See | | | | | | Compliance Statement B: | | | | | | Cenzic.Innovega/CSPerformed | | | | | | by Giiv,[address] | | | | | | [facility],[place] | | | | | | [address] | | | | | | [phone].[employer]. | | | | | | InnovegaIsmael MD, | | | | | | [...] [facility] | [address] | [place], [place] | | | UNIV PTH - INTFC | | [address] | | + + + + + [...] [facility] | [address] | [place] [address] | | | SERVICES, CORE | PARK [...] | + + + + + | [facility] | [address] | [place] [address] | | | SERVICES, SPECIAL | CLARENCE [...] | + + + + + | [facility] | [address] | [place] [address] | | | SERVICES, CORE | CLARENCE [...] at | | | | | | [email or web address] | | | | | | med by [facility] | | | | | | [facility],[address] [place] [address] | | | | | | [place] [address] | | | | | | [phone].[facility]. | | | | | | spanish fork hospitalIsmael MD, | | | | | [...] [facility] | [address] | [place], [place] | | | UNIV PTH - INTFC | | [address] | | + + + + + [...] | | | LABORATORY | | | PORTUGUESE | | | SERVICES, | | | [...] | + + + + + | [facility] | [address] | [place] [address] | | | SERVICES, CORE | CLARENCE [...]
--- OUTSIDE RECORDS SUMMARY | ~2019-06-25 | XMS | Encounter Summary ---
Demographics + + + | Address | [address] | | | [place] [address] | + + + | Home Phone | | + + + | Preferred Language | Unknown | + + + | Marital Status | | + + + | Christian Affiliation | Unknown | + + + | Race | Unknown | + + + | Ethnic Group | Unknown | + + + Author + + + | Author | [facility] | | | and [place]ana | + + + | Organization | [facility] | | | and Jeffana [...] Team Providers + +------+ + | Care Sales And Service Officer Name | Role | Phone | + +------+ + | Jorje Hill | PCP | | + +------+ + Reason for Visit Evaluate & Treat (Routine) +--------+--------+ + + + + | Status | Reason | Specialty | Diagnoses / | Referred By | Referred To | | | | | Procedures | Contact | Contact | +--------+--------+ + + + + | Closed | | Audiology | Diagnoses | [place], | Jas[place], | | | | | Audio and | Shamar Feliciano MD | MS Sherron | | | | | tymps fax | [address] | [facility] [address] | | | | | report/no | [address] | [address] | | | | | previous | [place], | [address] [place] | | | | | audiogram | [place] [address] | [place], [place] | | | | | Procedures | Phone: | [address] Phone: | | | | | OFFICE VISIT | [phone] | [phone] | | | | | REGULAR | Fax: | Fax: | | | | | | [phone] | [phone] | +--------+--------+ + + + + Encounter Details +--------+---------+ + + + | Date | Type | Department | Care Team | Description | +--------+---------+ + + + | 05/26/ | Office | [facility] [place] | Sherron Freedman, [place] | Normal hearing noted | | 2019 | Visit | AUDIOLOGY AND | [facility] [address] | on examination | | | | [facility] | [address] [place] | (Primary Dx); | | | | [address] | [place] [address] | Pressure sensation | | | | [address] [place] | [phone] | in both ears | | | | [place] [address] | | | | | | [phone] | | | +--------+---------+ + + + [...] documented as of this encounter Progress Notes Sherron Freedman, CCC-A - 05/26/2019 1:30 PM PDTReferring Provider: MD Jose Carlos Sebastian Ms. Cristina presents with plugged feeling in both ears. Results of Hearing Test: Right ear--Pure tone air and bone conduction testing showed 5-15dB threshold at 250 Hz through 8 KHz. Left ear --Pure tone air and bone conduction testing showed 5-15dB threshold at 250 Hz through 6 KHz and 35dB at 8 KHz. Speech Recognition Thresholds were 10dB in the right ear and 10dB in the left ear. Speech Discrimination Scores were 100% in right ear and 100% in the left ear. Tympanometry showed normal type A tracings in both ears. Impression and Recommendation: Normal hearing sensitivity in both ears. Normal function i n middle-ear system, in both ears. Plugged feeling in the ears which may be related to Meni ere's. Follow-up care with Dr. Wetzel, ENT. Thank you. documented in thi s encounter Plan of Treatment Not on filedocumented as of this encounter Procedures + +--------+ + + + | Procedure Name | Priori | Date/Time | Associated Diagnosis | Comments | | | ty | | | | + +--------+ + + + | DIAGNOSTIC REPORT - | | 05/26/2019 | | Results for this | | EXTERNAL SCAN | | 12:00 AM | | procedure are in the | | | | PDT | | results section. | + +--------+ + + + documented in this encounter Results DIAGNOSTIC REPORT - EXTERNAL SCAN (05/26/2019 12:00 AM PDT) + + + | Narrative | Performed At | + + + | Ordered by an | | | unspecified provider. | | + + + documented in this encounter Visit Diagnoses + + | Diagnosis | + + | Normal hearing noted on examination - Primary | + + | Pressure sensation in both ears | + + documented in this encounter"
--- OUTSIDE RECORDS SUMMARY | ~2019-06-25 | XMS | Encounter Summary ---
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 adult (HCC) - Primary | + + | Chronic diastolic heart failure (HCC) Chronic diastolic heart failure | + + | Immobility Other ill-defined conditions | + + | Severe muscle deconditioning Other specific muscle disorders | + + | Personal history of DVT (deep vein thrombosis) Personal history of venous thrombosis | | and embolism | + + | History of pulmonary embolism Personal history of pulmonary embolism | + + | AMARA treated with BiPAP | + + | Benign essential HTN Essential hypertension, benign | + + | Diabetes mellitus type 2 without retinopathy (HCC) Type II or unspecified type |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 without mention of complication, not stated as uncontrolled | + + | Hyperlipidemia, unspecified hyperlipidemia type | + + | Ventral hernia without obstruction or gangrene Ventral hernia, unspecified, without | | mention of obstruction or gangrene | + + documented in this encounter
--- OUTSIDE RECORDS SUMMARY | ~2019-06-25 | XMS | Encounter Summary ---
Demographics + + + | Address | [address] | | | [place] [address] | + + + | Home Phone [...] + | Katalina Padilla | ECON | [address] | | | | | [place], [place] | | | | | [address] | | + + + + + | Ellie Vang | ECON | Unknown | | + + + + + Care Team Providers + +------+ + | Care Form Layer Name | Role | Phone | + +------+ + | Fadi Goodrich DO | PCP | | + +------+ + Encounter Details +--------+ + + + + | Date | Type | Department | Care Team | Description | +--------+ + + + + | 03/06/ | Telephone | Cardiology in | Randell Franks, | | | 2014 | | [facility] | [address] | | | | | [facility] [address] | [address] [place], [place] | | | | | [facility] | [address] | | | | | Mailcode: Center | [phone] | | | | | for Health and | | | | | | [facility] [address] | | | | | | [place], [place] | | | | | | [address] | | | | | | [phone] | | | +--------+ + + + [...] [address] | | | | | | [place], [place] | | | | | | [address] | | | | | | [phone] | | | | | | | | +--------+ + + + + | 08/19/ | Surgery | Surgery | Chilo, | OPEN VENTRAL HERNIA | | 2019 | | | MD Jorje [address] | REPAIR WITH | | | | | [address] | BIOLOGICAL MESH | | | | | [place], [place] | | | | | | [address] | | | | | | [phone] | | | | | | | | +--------+ + + + + | 09/15/ | Office | Cardiology | Randell Franks, | | | 2019 | Visit | | [address] | | | | | | [place], [place] | | | | | | [address] | | | | | | [phone] | | | | | | | | +--------+ + + + + documented as of this encounter Visit Diagnoses Not on filedocumented in this encounter"
--- OUTSIDE RECORDS SUMMARY | ~2019-06-25 | XMS | Encounter Summary ---
Demographics + + + | Address | [address] | | | [place] [address] | + + + | Home Phone [...] + | Katalina Padilla | ECON | [address] | | | | | [place], [place] | | | | | [address] | | + + + + + | Ellie Vang | ECON | Unknown | | + + + + + Care Team Providers + +------+ + | Care Bakelite Molder Name | Role | Phone | + [...] Description | +--------+---------+ + + + | 03/10/ | Office | [facility] | Ronna Clarke, | History of Frandy-en-Y | | 2018 | Visit | [facility] [address] | ACNP [address] | gastric bypass | | | | [address] | Ave [place], [place] | (Primary Dx); | | | | Mailcode: Center | [address] | Ventral hernia | | | | for Health and | [phone] | without obstruction | | | | Healing, [address] | | or gangrene; Mixed | | | | [place], [place] | | hyperlipidemia; | | | | [address] | | 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[phone] | | type 2 without | | [...] | | | | | adult (HCC); YO | | | | | | (dyspnea on | | | | | | exertion); PCOS | | | | | | (polycystic ovarian | | | | | | syndrome); Decreased | | | | | | mobility; | | | | | | Intertriginous | | | | | | candidiasis; | | | | | | Impaired intestinal | | | | | | absorption | +--------+---------+ + + + Social History [...] + + + | Blood Pressure | 164/84 | 03/10/2018 3:26 PM | | | | | PDT | | + + + + + | Pulse | 94 | 03/10/2018 3:26 PM | | | | | PDT | | + + + + + | Temperature | 36.6 C (97.9 F) | 03/10/2018 3:26 PM | | | | | PDT | | + + + + + | Respiratory Rate | 18 | 03/10/2018 3:26 PM | | | | | PDT | | + + + + + | Oxygen Saturation | - | - | | + + + + + | Inhaled Oxygen | - | - | | | Concentration | | | | + + + + + | Weight | 164 kg (361 lb 8 oz) | 03/10/2018 3:26 PM | | | | | PDT | | + + + + + | Height | 149.9 cm (4' 11") | 03/10/2018 3:26 PM | | | | | PDT | | + + + + + | Body Mass Index | 73.01 | 03/10/2018 3:26 PM | | | [...] Instructions Patient Instructions Ronna Clarke ACNP - 03/10/2018 3:05 PM PDTAssessment/Plan: 1. S/P Frandy en y gastric bypass, Doing well at 9 days post op except for pain around abdomi nal incision-wound culture and she will call us tomorrow to tell us how she is doing Refill oxycodone Rx +Take acid sap data architect for first 3 mos, then wean off over 2 wks. +Continue with supplements as directed, watch protein levels, be sure to get 60 gms daily, be sure to take in 64 oz of water daily. Discussed specific supplements +Discussed calorie counting and protein counting. +Discussed diet choices, healthy foods, ways to increase protein and iron, offered RD visit . +Discussed exercise, types of exercise: walking + [...] mos and yearly visits. 5. AMARA: using CPAP 6. GERD: NA 7. Hyperlipidemia: NA 8. HTN: NA 9. Diabetes:decreased insulin dose 10. Is patient taking meds according to discharge instructions ? Yes 11. Does the patient feel medication instructions were clear at discharge? Yes/ 12. Abdominal binder? No they don't fit See PCM for adjusting any other medications. Call if any abd pain, n/v/d or other issues. E R for severe pain. Encouraged pt to F/u at 3 months post op. Pt agrees to POC and [facility]. documented in this encounter Progress Notes Ronna Clarke ACNP - 03/10/2018 3:05 PM PDTFormatting of this note might be different fr om the original. BARIATRIC FOLLOW-UP Elzbieta Cristina is a 43 y.o. patient who underwent a Frandy en y gastric bypass 03/01/18. She is making good food choices- will change phases next Thursday. She is being more active-walkin g. She has been taking all supplements, trying to get 60 gms protein daily, and 64 oz water daily. She is happy with her weight loss. States regular BMs. She has a had a lot of pain a round her LLQ incision with firmness. She denies, fevers, chills, drainage, nausea, vomting. She is on a three week course of Lovenox. She has run out of her oxycodone and would like a refill. Her insulin requirements have decreased and CBGs have been 90-110 in the am. She rodrigues s been retaining fluid and would like to go back to full dose of torsemide. She has been magali ting her fluid goals. Last office visit reviewed. Op-report reviewed. Labs reviewed. Weight 372--> 361 (total 11 lb weight loss) BP 164/84 | Pulse 94 | Temp (Src) 36.6 C (97.9 F) (Oral) | RR 18 | Ht 1.499 m (4' 11") | Wt 164 kg (361 lb 8 oz) | BMI 73.01 kg/(m^2) ALLERGIES: Allergies Allergen Reactions Amoxicillin Benadrilina [Diphenhydramine Hcl] Hives Parlodel [Bromocriptine] Unknown Blood clots Penicillin Hives Current Outpatient Prescriptions: acetaminophen 325 mg oral tablet, Take 2 tablets by mouth every six hours as needed for pain. Cut tablet into small pieces. Do not crush., Disp: 100 tablet, Rfl: 0 ALPRAZolam 1 mg oral tablet, Take 1 mg by mouth three times daily as needed for anxiety., D isp: , Rfl: ascorbic acid (VITAMIN C) 500 mg Oral tablet, Take 500 mg by mouth once daily. , Disp: , R fl: aspirin EC 81 mg oral tablet,delayed release (DR/EC), Take 81 mg by mouth once daily., Disp : , Rfl: atenolol 25 mg oral tablet, Take 25 mg by mouth two times daily. , Disp: , Rfl: CALCIUM [id number]-GENIS ORAL, Take 2 tablets by mouth two times daily., Disp: , Rfl: enoxaparin 40 mg/0.4 mL subcutaneous syringe, Inject 0.4 mL under the skin two times daily for 14 days., Disp: 11.2 mL, Rfl: 0 ergocalciferol (VITAMIN D2) 50,000 unit oral capsule, Take 50,000 Units by mouth twice week ly (on Thursday and )., Disp: , Rfl: FLUoxetine 20 mg oral tablet, Take 60 mg by mouth once daily at bedtime., Disp: , Rfl: gabapentin 300 mg oral capsule, Take 300 mg by mouth four times daily., Disp: , Rfl: glycerin (ADULT) rectal suppository, Unwrap and insert 1 suppository rectally once daily as needed for constipation., Disp: 25 suppository, Rfl: 2 magnesium oxide 400 mg oral tablet, Take 400 mg by mouth once daily., Disp: , Rfl: metFORMIN 1,000 mg oral tablet, See directions below, Disp: , Rfl: OLANZapine 15 mg oral tablet, Take 30 mg by mouth once daily at bedtime., Disp: , Rfl: omeprazole 20 mg oral capsule,delayed release(DR/EC), Take 1 capsule by mouth once daily in the morning. Open the capsule and mix into sugar-free liquid or yogurt., Disp: 90 capsule, Rfl: 0 ondansetron ODT 4 mg oral tablet,disintegrating, Dissolve 1 tablet on tongue and swallow ev eileen six hours as needed for nausea/vomiting., Disp: 30 tablet, Rfl: 1 oxyCODONE (immediate release) 5 mg oral tablet, Take 1 to 3 tablets by mouth every four crista rs as needed for moderate pain or severe pain., Disp: 50 tablet, Rfl: 0 polyethylene glycol 17 gram/dose oral powder, Dissolve 17g (1 capful) into 4 ounces of liqu id and drink once daily as needed for constipation., Disp: 255 g, Rfl: 0 potassium chloride SR 20 mEq oral tablet,ER particles/crystals, Take 2 tablets by mouth two times daily. (Patient taking differently: Take 60 mEq by mouth four times daily. ), Disp: 1 20 tablet, Rfl: 0 simethicone chew 80 mg oral tablet,chewable, Chew and swallow 1 tablet four times daily as needed for gas/bloating., Disp: 30 tablet, Rfl: 0 sodium fluoride 1.1 % dental cream, Place [...] once daily with dinner., Disp: , Rfl: ursodiol 300 mg oral capsule, Take 1 capsule by mouth two times daily. Start taking two wee ks after your surgery., Disp: 60 capsule, Rfl: 5 History: Past Medical History: Diagnosis Date Abdominal [...] Andie Brian Incisional hernia repair 03/01/2015 [facility]/ Dr. Cantu. Primary fascial closure and [...] History Narrative Updated 11/09/15 She lives in [place] with her mother and her sister (also her caregiver) lives in an apa rtment/duplex below. She has 2 grandchildren (age 4 and 7) who live with her daughter and son-in-law Her boyfriend lives in [place] HFpEF, DM2, HTN, Sleep Apnea (unable to [...] program here and refer her to our technical customer support specialist who also has expertise in physical [...] daily or monthly shot: yes H2RB/PPI daily: yes Actigall 300 BID: no Narcotics: yes Symptoms: Nausea: 2-5 times per week, taking zofran Dysphagia: none Vomiting: None Heartburn: None Abd Pain: Multiple times per day, taking oxycodone Constipation: None Diarrhea: Sometimes Exam General- Alert and oriented x4, WD, WN, NAD, Obese, well appearing Well hydrated: moist mucous membranes Abd - Soft, NR, NG, tender over LLQ incision with firmness, no fluctuance, no drainage or r edness Incisions - well healed Procedure: Indication: Possible abdominal abscess vs. hematoma Patient given a time out, consented to procedure The skin was prepped with alcohol. 1% lidocaine w/ Epinephrine was injected around the incision #18 G needle was used to aspirate fluid, clear bloody aspirate obtained. A wound culture was sent to the lab. A dressing was applied. The patient tolerated the procedure without complication Assessment/Plan: 1. S/P Frandy en y gastric bypass, Doing well at 9 days post op except for pain around abdomi nal incision, most likely hematoma-wound culture and she will call us tomorrow to tell us ho w she is doing Refill oxycodone Rx Increase torsemide to pre-surgical dose +Take acid sap data architect for first 3 mos, then wean off over 2 wks. +Continue with supplements as directed, watch protein levels, be sure to get 60 gms daily, be sure to take in 64 oz of water daily. Discussed specific supplements +Discussed calorie counting and protein counting. +Discussed diet choices, healthy foods, ways to increase protein and iron, offered RD visit . +Discussed exercise, types of exercise: walking + [...] mos and yearly visits. 5. AMARA: using CPAP 6. GERD: NA 7. Hyperlipidemia: NA 8. HTN: NA 9. Diabetes: decreased insulin dose, she will make an appointment with her Security Operations Center Operator to discuss insulin dosing and CBGs 10. Is patient taking meds according to discharge instructions ? Yes 11. Does the patient feel medication instructions were clear at discharge? Yes/ 12. Abdominal binder? No they don't fit See PCM for adjusting any other medications. Call if any abd pain, n/v/d or other issues. E R for severe pain. Encouraged pt to F/u at 3 months post op. Pt agrees to POC and [facility] call [facility] if any issues. Start time 15:35, end time 15:55. I spent a total of 20 minutes face to face with this pat ient. Over 50% of visit was in counseling. ~ 10 minutes of additional time spent reviewing chart prior to visit and documenting after this visit. Ronna Clarke DNP ACNP FOOD SAFETY SCIENTIST Bariatric Surgery Nurse Practitioner [facility] | [address] | [place], [place] | [address] | documented in this e ncounter Plan [...] 2020 | Encounter | | MD Jorje [address] | | | | | | [address] | | | | | | [place], [place] | | | | | | [address] | | | | | | [phone] | | | | | | | | +--------+ + + + + | 08/19/ | Surgery | Surgery | Chilo, | OPEN VENTRAL HERNIA | | 2019 | | | MD Jorje [address] | REPAIR WITH | | | | | [address] | BIOLOGICAL MESH | | | | | [place], [place] | | | | | | [address] | | | | | | [phone] | | | | | | | | +--------+ + + + + | 09/15/ | Office | Cardiology | Randell Franks, | | | 2019 | Visit | | [address] | | | | | | Ave [place], [place] | | | | | | [address] | | | | | | [phone] | | | | | | | | +--------+ + + + + documented as of this encounter Procedures + +--------+ + + + | Procedure Name | Priori | Date/Time | Associated Diagnosis | Comments | | | ty | | | | + +--------+ + + + | CULTURE, WOUND | Routin | 03/10/2018 | History of | Results for this | | ABSCESS OR ASPIRATE | e | 3:55 PM | Frandy-en-Y gastric | procedure are in the | | W/ ANAEROBE | | PDT | bypass Ventral | results section. | | | | | hernia without | | | | | | obstruction or | | | | | | gangrene Mixed | | | | | | hyperlipidemia | | | | | | 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| | 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) | | | | | | Benign essential HTN | | | | | | AMARA treated with | | | | | | BiPAP History of | | | | | | pulmonary embolism | | | | | | Personal history of | | | | | | DVT (deep vein | | | | | | thrombosis) Severe | | | | | | muscle | | | | | | deconditioning | | | | | | Chronic diastolic | | | | | | heart failure (HCC) | | | | | | Morbid obesity with | | | | | | BMI of 70 and over, | | | | | | adult (HCC) YO | | | | | | (dyspnea on | | | | | | exertion) PCOS | | | | | | (polycystic ovarian | | | | | | syndrome) Decreased | | | | | | mobility | | | | | | Intertriginous | | | | | | candidiasis | | | | | | Impaired intestinal | | | | | | absorption | | + +--------+ + + + documented in this encounter Results CULTURE, WOUND ABSCESS OR ASPIRATE W/ ANAEROBE (03/10/2018 3:55 PM PDT) + + | Specimen | + + | Abscess - Ectopic | | ureter (disorder) | + + + + + | Narrative | Performed At | + + + | Culture Report: No growth No anaerobic organisms isolated | [facility] | | Gram Stain: No polymorphonuclear cells No squamous epithelial | [facility] | | cells No organisms seen | [place] | + + + + + + + + | Performing | Address | City/State/Zipcode | Phone Number | | Organization | | | | + + + + + | [facility] | [address] | [place] [address] | | | [place] | | | | + + + [...] over, adult (HCC) | + + | YO (dyspnea on exertion) Other dyspnea and respiratory abnormality | + + | PCOS (polycystic ovarian syndrome) Polycystic ovaries | + + | Decreased mobility Abnormality of gait | + + | Intertriginous candidiasis Candidiasis of skin and nails | + + | Impaired intestinal absorption Unspecified intestinal malabsorption | + + documented in this encounter
--- OUTSIDE RECORDS SUMMARY | ~2019-06-25 | XMS | Encounter Summary ---
Demographics + + + | Address | [address] | | | [place] [address] | + + + | Home Phone [...] + | Katalina Padilla | ECON | [address] | | | | | [place], [place] | | | | | [address] | | + + + + + | Ellie Vang | ECON | Unknown | | + + + + + Care Team Providers + +------+ + | Care Fund Manager Name | Role | Phone | [...] | | | 2014 | Event | [facility] | MD Raza [address] | | | | | Admitting Desk | [address] | | | | | Located on the 9 | [place], [place] | | | | | floor [address] | [address] | | | | | [address] | [phone] | | | | | [place], [place] | | | | | | [address] | Marcial Brunner CRNA | | | | | | [address] | | | | | | [place], | | | | | | [place] [address] | | | | | | [phone] | | | | | | | [...] | (Automatic cleanup per RA | Luanne Bonilla RN | Discontinued After | | Drains [...] Rd | | | | | | [place], [place] | | | | | | [address] | | | | | | [phone] | | | | | | | | +--------+ + + + + | 08/19/ | Surgery | Surgery | Chilo, | OPEN VENTRAL HERNIA | | 2019 | | | MD Jorje [address] | REPAIR WITH | | | | | [address] | BIOLOGICAL MESH | | | | | [place], [place] | | | | | | [address] | | | | | | [phone] | | | | | | | | +--------+ + + + + | 09/15/ | Office | Cardiology | Randell Franks, | | | 2019 | Visit | | [address] | | | | | | [place], [place] | | | | | | [address] | | | | | | [phone] | | | | | | | [...] | | | 03/01/15 at 0951, Until Jasmyen 03/01/15 | | AM PDT | | [...] | | | | | Until Jasmyne /01/08 at 1204 | | | | | [...]
--- OUTSIDE RECORDS SUMMARY | ~2019-06-25 | XMS | Encounter Summary ---
Demographics + + + | Address | [address] | | | [place] [address] | + + + | Home Phone [...] + | Katalina Padilla | ECON | [address] | | | | | [place], [place] | | | | | [address] | | + + + + + | Ellie Vang | ECON | Unknown | | + + + + + Care Team Providers + +------+ + | Care Radar Tester Name | Role | Phone | + +------+ + | Kenyatta Cardenas MD | PCP | | + +------+ + Encounter Details +--------+ + + + + | Date | Type | Department | Care Team | Description | +--------+ + + + + | 03/06/ | Pharmacy | Outpatient Retail | | | | 2013 | Visit | [facility] | | | | | | [address] | | | | | | [place] | | | | | | [place] [address] | | | | | | [phone] | | | +--------+ + + + [...] Rd | | | | | | [place], [place] | | | | | | [address] | | | | | | [phone] | | | | | | | | +--------+ + + + + | 08/19/ | Surgery | Surgery | Chilo, | OPEN VENTRAL HERNIA | | 2019 | | | MD Jorje [address] | REPAIR WITH | | | | | [address] | BIOLOGICAL MESH | | | | | [place] | | | | | | [address] | | | | | | [phone] | | | | | | | | +--------+ + + + + | 09/15/ | Office | Cardiology | Randell Franks, | | | 2019 | Visit | | [address] | | | | | | [place] | | | | | | [address] | | | | | | [phone] | | | | | | | | +--------+ + + + + documented as of this encounter Visit Diagnoses Not on filedocumented in this encounter"
--- OUTSIDE RECORDS SUMMARY | ~2019-06-25 | XMS | Encounter Summary ---
Demographics + + + | Address | [address] | | | [place] [address] | + + + | Home Phone [...] + | Katalina Padilla | ECON | [address] | | | | | [place], [place] | | | | | [address] | | + + + + + | Ellie Vang | ECON | Unknown | | + + + + + Care Team Providers + +------+ + | Care Structural Metal Fabricator Apprentice Name | Role | Phone | + +------+ + | Fadi Goodrich DO | PCP | | + +------+ + Encounter Details +--------+------+ + + + | Date | Type | Department | Care Team | Description | +--------+------+ + + + | 11/20/ | Lab | Laboratory at [facility] | | 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 | | [address] | | BMI of 70 and over, | | | | [place], [place] | | adult ([facility]); | | | | [address] | | 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[phone] | | 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 ([facility]); | | | | | | Type 2 diabetes | | | | | | mellitus without | | | | | | complication, with | | | | | | long-term current | | | | | | use of insulin ([facility]) | +--------+------+ + + + Social [...] Recinos | | | | | | [address] | | | | | | [place], [place] | | | | | | [address] | | | | | | [phone] | | | | | | | | +--------+ + + + + | 08/19/ | Surgery | Surgery | Chilo, | OPEN VENTRAL HERNIA | | 2019 | | | MD Demond Recinos [address] | REPAIR WITH | | | | | [address] | BIOLOGICAL MESH | | | | | [place], [place] | | | | | | [address] | | | | | | [phone] | | | | | | | | +--------+ + + + + | 09/15/ | Office | Cardiology | Randell Franks, | | | 2019 | Visit | | MD [address] | | | | | | [address] [place], [place] | | | | | | [address] | | | | | | [phone] | | | | | | | | +--------+ + + + + documented as of this encounter Procedures + +--------+ + + + | Procedure Name | Priori | Date/Time | Associated Diagnosis | Comments | | | ty | | | | + +--------+ + + + | LIPID LAB - LIPID | Routin | 11/20/2017 | Type 2 diabetes | Results for this | | PROFILE - PLASMA | e | 10:01 AM | mellitus without | procedure are in the | | LIPIDS, HDL AND LDL | | PDT | complication, with | results section. | [...] | CBC (HEMOGRAM) ONLY | Routin | 11/20/2017 | Morbid obesity | Results for this | | | e | 10:01 AM | with BMI of 70 and | procedure are in the | | | | PDT | over, adult ([facility]) | results section. | | | | | 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| | 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 ([facility]) | | + +--------+ + + + | VITAMIN B1, WHOLE | Routin | 11/20/2017 | Morbid obesity | Results for this | | BLOOD | e | 10:01 AM | with BMI of 70 and | procedure are in the | | | | PDT | over, adult ([facility]) | results section. | | | | | 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| | 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 ([facility]) | | + +--------+ + + + | VITAMIN D, | Routin | 11/20/2017 | Morbid obesity | Results for this | | 25-HYDROXY, SERUM | e | 10:01 AM | with BMI of 70 and | procedure are in the | | | | PDT | over, adult ([facility]) | results section. | | | | | 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| | 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 ([facility]) | | + +--------+ + + + | COMPLETE METABOLIC | Routin | 11/20/2017 | Morbid obesity | Results for this | | SET | e | 10:01 AM | with BMI of 70 and | procedure are in the | | (NA,K,CL,CO2,BUN,CRE | | PDT | over, adult ([facility]) | results section. | | AT,GLUC,CA,AST,ALT,B | | | Diabetes mellitus | | | MARGIE TOTAL,ALK | | | type 2 without | | | PHOS,ALB,PROT TOTAL) |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 ([facility]) | | + +--------+ + + + | CBC ONLY | Routin | 11/20/2017 | Morbid obesity | Results for this | | | e | 10:01 AM | with BMI of 70 and | procedure are in the | | | | PDT | over, adult ([facility]) | results section. | | | | | 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| | 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) | | + +--------+ + + + | FERRITIN | Routin | 11/20/2017 | Morbid obesity | Results for this | | | e | 10:01 AM | with BMI of 70 and | procedure are in the | | | | PDT | over, adult ([facility]) | results section. | | | | | 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| | 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) | | + +--------+ + + + | PTH, SERUM | Routin | 11/20/2017 | Morbid obesity | Results for this | | | e | 10:01 AM | with BMI of 70 and | procedure are in the | | | | PDT | over, adult ([facility]) | results section. | | | | | 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| | 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 ([facility]) | | + +--------+ + + + | VITAMIN B-12 | Routin | 11/20/2017 | Morbid obesity | Results for this | | | e | 10:01 AM | with BMI of 70 and | procedure are in the | | | | PDT | over, adult ([facility]) | results section. | | | | | 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| | 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 ([facility]) | | + +--------+ + + + | HEMOGLOBIN A1C, | Routin | 11/20/2017 | Type 2 diabetes | Results for this | | BLOOD | e | 10:01 AM | mellitus without | procedure are in the | | | | PDT | complication, with | results section. | [...] IRON AND TIBC, SERUM | Routin | 11/20/2017 | Morbid obesity | Results for this | | | e | 10:01 AM | with BMI of 70 and | procedure are in the | | | | PDT | over, adult ([facility]) | results section. | | | | | 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| | 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) | | + +--------+ + + + documented in this encounter Results CBC (HEMOGRAM) ONLY (11/20/2017 10:01 AM PDT) + + + + + + | Component | Value | Ref Range | Performed | Pathologist | | | | | At | Signature | + + + + + + | WHITE CELL | 13.84 (H) | 3.50 - 10.80 | [facility] | | | COUNT | | K/cu mm | LABORATORY | | | | | | SERVICES, | | | | | | [facility] | | | | | | [facility] | | + + + + + + | RED CELL | 4.91 | 4.00 - 5.20 | [facility] | | | COUNT | | M/cu mm | LABORATORY | | | | | | SERVICES, | | | | | | [facility] + | | | | | | [facility] | | + + + + + + | HEMOGLOBIN | 13.2 | 12.0 - 16.0 | [facility] | | | | | g/dL | LABORATORY | | | | | | SERVICES, | | | | | | [facility] + | | | | | | [facility] | | + + + + + + | HEMATOCRIT | 42.1 | 36.0 - 46.0 % | [facility] | | | | | | LABORATORY | | | | | | SERVICES, | | | | | | [facility] + | | | | | | [facility] | | + + + + + + | MCV | 85.7 | 80.0 - 96.0 fL | [facility] | | | | | | LABORATORY | | | | | | SERVICES, | | | | | | [facility] + | | | | | | [facility] | | + + + + + + | MCHC | 31.4 | 33.0 - 35.5 | [facility] | | | | | g/dL | LABORATORY | | | | | | SERVICES, | | | | | | [facility] | [facility] + | | | | | | [facility] | | + + + + + + | RDW SD | 50.8 (H) | 35.1 - 46.3 fL | [facility] | | | | | | LABORATORY | | | | | | SERVICES, | | | | | | [facility] | [facility] | [facility] + | | | | | | [facility] | | + + + + + + | PLATELET | 242 | 150 - 400 K/cu | [facility] | | | COUNT | | mm | LABORATORY | | | | | | SERVICES, | | | | | | [facility] + | | | | | | [facility] | | + + + + + + | MPV | 9.8 | 9.7 - 12.3 fL | [facility] | | | | | | LABORATORY | | | | | | SERVICES, | | | | | | [facility] | | [facility] | [facility] + | | | | | | [facility]AL[facility] | | + + + + + + + + | Specimen | + + | Blood - Blood | | (substance) | + + + + + + + | Performing | Address | City/State/Zipcode | Phone Number | | Organization | | | | + + + + + | [facility] | [address] | [place] [address] | | | SERVICES, [facility] | | | | | [facility] + [facility]ALING | | | | + + + [...] | + + + + + | [facility] | [address] | [place], [place] | | | SERVICES, LIPID | [address] | [phone] | | + + + + + [...] | [facility] | | considered for monitoring jail glycemic control in patients with: | LABORATORY [...] | + + + + + | [facility] | [address] | [place] [address] | | | SERVICES, SPECIAL | [address] | | | | IMM + COAG | | | | + + + + + VITAMIN B1, WHOLE BLOOD (11/20/2017 10:01 AM [...] | | | | | determined by [facility] | | | | | | Laboratories. See | | | | | | Compliance Statement B: | | | | | | [employer].Wheelz/CSPerformed | | | | | | by [employer],[address] | | | | | | [address], [facility],[place] | | | | | | [id number] | | | | | | [phone].Proofpoint. | | | | | | com, Ismael Willis MD, | | | | | | [...] [facility] | [address] | [place], [place] | | | [facility] | | [address] | | + + + + + [...] | | | LABORATORY | | | [facility] | | | SERVICES, | | | [...] | + + + + + | [facility] | [address] [facility] [address] | [place] [address] | | | LYDIA RANGEL | CLARENCE [...] | + + + + + | [facility] | [address] | [place] [address] | | | SERVICES, CORE | CLARENCE [...] | + + + + + | [facility] | [address] | [place] [address] | | | SERVICES, CORE | CLARENCE [...] + + | [facility] | [address] [facility] [facility] | [place] [address] | | | SERVICES, CORE | [address] [...] [facility] | [address] | [place] [address] | | | SERVICES, CORE | PARK [...] + + + + + | [facility] | [address] | [place] [address] | | | SERVICES, LYDIA | CLARENCE [...]
--- OUTSIDE RECORDS SUMMARY | ~2019-06-25 | XMS | Encounter Summary ---
Demographics + + + | Address | [address] | | | [place] [address] | + + + | Home Phone [...] + | Katalina Padilla | ECON | [address] | | | | | [place], [place] | | | | | [address] | | + + + + + | Ellie Vang | ECON | Unknown | | + + + + + Care Team Providers + +------+ + | Care Athletic Events Scorer Name | Role | Phone | + [...] , Diabetes & | Morbid | Kathy M, CROWN AND BRIDGE TECHNICIAN | [address] | | | | Metabolism | obesity | [address] | | | | | (HCC) | [address], | [address] | | | | | Procedures | [address] | Physician's | | | | | CONSULT TO | [place], [place] | [place] | | | | | ENDO | [address] | Physician's | | | | | [address] | Phone: | Pavilion | | | | | [address] | [phone] | [place], [place] | | | | | | Fax: | [address] | | | | | | [phone] | Phone: | | | | | | | [phone] | | | | | | | Fax: | | | | | | | [phone] | +--------+--------+ + + + + Encounter Details +--------+---------+ + + + | Date | Type | Department | Care Team | Description | +--------+---------+ + + + | 04/14/ | Office | Aniket Lopez | Randell Franks, | DM type 2 (diabetes | | 2012 | Visit | [facility] | [address] | mellitus, type 2) | | | | [facility] | [address] [place], [place] | ([facility]) (Primary Dx); | | | | Pav[address] | [address] | Type 2 diabetes | | | | [address] | [phone] | mellitus ([facility]); AMARA | | | | Physician's | | (obstructive sleep | | | | Pavilion | | apnea); Morbid | | | | [facility] | | obesity ([facility]); | | | | [place], [place] | | Edema; GERD | | | | [address] | | (gastroesophageal | | | | [phone] | | reflux disease) | +--------+---------+ + + + Social History [...] + + + | Blood Pressure | 132/72 | 04/14/2013 10:38 AM | | | | | PDT | | + + + + + | Pulse | 64 | 04/14/2013 10:38 AM | | | | | PDT | | + + + + + | Temperature | - | - | | + + + + + | Respiratory Rate | 18 | 04/14/2013 10:38 AM | | | | | PDT | | + + + + + | Oxygen Saturation | - | - | | + + + + + | Inhaled Oxygen | - | - | | | Concentration | | | | + + + + + | Weight | 173.6 kg (382 lb | 04/14/2013 10:38 AM | | | | 12.8 oz) | PDT | | + + + + + | Height | 154.9 cm (5' 1") | 04/14/2013 10:38 AM | | | | | PDT | | + + + + + | Body Mass Index | 72.33 | 04/14/2013 10:38 AM | | | | | PDT | | + + + + + documented in this encounter Progress Notes Randell Franks MD - 04/14/2013 11:22 AM PDTFormatting of this note might be different f rom the original. Reason for referral: Evaluate Obesity and T2DM PCP: Fadi Goodrich DO Referring physician: Kathy Feldman, [place] [address] [place] [address] HPI: Dylan is a 38 y.o. female here for evaluation of Obesity and T2DM. Ms. Romero has morb id obesity complicated by AMARA, T2DM, severe edema, and recently managed for a ventral hernia currently being evaluated for RYGBP consideration. Her lifetime maximal weight is 495 lbs "several years ago." She was first seen by Dr. Brian in September 2012 when her weight was 43 2 lbs. She was instructed to lose 50 to 80 lbs and she subsequently started an Debora's diet . Since doing this, she has lost 50 lbs to her current weight and feels better. She is unab le to exercise given her weight. She has no personal history of CAD, PVD, HTN, or use of weight loss meds. ROS: Positive for fatigue, heat and cold intolerance, headaches, dizziness, sinus symptoms, sore tongue, neck pain, palpitations, leg swelling, abdominal bloating and pain, N/V, easy bruising, numbness, anxiety, depression, and irregular periods. The remainder of the 13 sys tem ROS has been reviewed and is negative. Problem List: Patient Active Problem List Diagnosis Hernia Morbid obesity Type 2 diabetes mellitus AMARA (obstructive sleep apnea) Edema GERD (gastroesophageal reflux disease) Past Med Hx: Past Medical History Diagnosis Date Neck pain [...] over in adult Incisional hernia, incarcerated 2012 Hernia of abdominal wall Meds: Current Outpatient Prescriptions Medication Sig ALPRAZolam XR 3 mg Oral tablet extended release 24 hr Take 3 mg by mouth once daily in the morning. ascorbic acid (VITAMIN C) 500 mg Oral tablet Take 500 mg by mouth once daily. ASPIRIN/ACETAMINOPHEN/JARON CARB (EXCEDRIN BACK & BODY ORAL) Take by mouth four times da mireya as needed. ferrous sulfate 325 mg (65 mg iron) Oral tablet Take 325 mg by mouth two times daily. FLUoxetine 40 mg Oral capsule Take 40 mg by mouth once daily. HUM INSULIN NPH/REG INSULIN HM (HUMULIN 70/30 SUBQ) Inject 50 cc under the skin (SUBC) once daily. lactobacillus rhamnosus, GG, Oral capsule Take 1 Cap by mouth once daily. lidocaine 5 % Topical Cream Apply to affected area once daily as needed. Apply to affe cted area. metFORMIN 1,000 mg Oral tablet Take 1,000 mg by mouth once daily. OLANZAPINE (ZYPREXA ORAL) Take 30 mg by mouth once daily. oxyCODONE, immediate release, 5 mg Oral tablet Take 4 Tabs by mouth every three hours a s needed for severe pain. phentermine 37.5 mg Oral tablet Take 1 tablet by mouth once daily in the morning. Admin ister before breakfast. piroxicam 20 mg Oral capsule Take 20 mg by mouth once daily. polyethylene glycol 17 gram/dose Oral Powder Take 17 g by mouth once daily. VIT/IRON FUMARATE/FA ( PLUS ORAL) Take by mouth. ranitidine 300 mg Oral tablet Take 300 mg by mouth once daily at bedtime. senna-docusate 8.6-50 mg Oral tablet Take 1 Tab by mouth two times daily. TORSEMIDE ORAL Take 40 mg by mouth two times daily. traZODone 150 mg Oral tablet Take 150 mg by mouth once daily at bedtime. No current facility-administered medications for this visit. Social History: History Social History Marital Status: Single Spouse Name: N/A Number of Children: 1 Years of Education: N/A Occupational History disabled None Social History Main Topics Smoking status: Never [...] Father Obesity M&F&Sister Diabetes Mother Arthritis M&F Exam: Vitals: BP 132/72 | Pulse 64 | RR 18 | Ht 1.549 m (5' 1") | Wt 173.637 kg (382 lb 12. 8 oz) | BMI 72.37 kg/(m^2) Gen: pleasant, NAD HEENT: No xanthomas, EOMI, PEERLA Neck: NL thyroid Lungs: clear to A Heart: Reg, no MRG Abd: Soft, NT, no masses or hepatosplenomegaly Ext: no CCE, no tremor Neuro: non-focal Skin: NL, no xanthomas Labs: Results for DYLAN ROMERO ( ) as of 04/19/2013 10:53 11/12/2012 03:56 04/14/2013 11:09 SODIUM, PLASMA (LAB) 138 POTASSIUM, PLASMA (LAB) 4.1 POTASSIUM CMNT No Hemo CHLORIDE, PLASMA (LAB) 102 TOTAL CO2, PLASMA (LAB) 30 ANION GAP 6 ANION GAP(ALB CORRECTED) 9 BUN, PLASMA (LAB) 9 CREATININE PLASMA (LAB) 0.71 EGFR - ICELANDIC >60 EGFR NON -ICELANDIC >60 GLUCOSE, PLASMA (LAB) 113 (H) CALCIUM, PLASMA (LAB) 8.8 MAGNESIUM,PLASMA 1.8 PHOSPHORUS, PLASMA (LAB) 3.3 ALBUMIN, PLASMA (LAB) 2.5 (L) HEMOGLOBIN A1C 5.0 Assessment: 1) T2 Diabetes: Under good control. Will continue present managemetn. 2) Morbid obesity: We spent an extensive amount of time discussing body weight regulation, the role of the hypothalamus in the control of appetite and energy expenditure, and how the body weight set point increases with defense of a new (higher) weight range in those with g enetic predisposition. We then discussed the importance of lifestyle (low-fat diet, activit y) as a first line therapy, as well as medical and surgical approaches to weight loss. In p reparation for her bariatric surgery, treatment with medical therapy for weight loss was dis cussed. This includes the centrally acting anorectic phentermine. Side effects to phenterm ine were then detailed, including dry mouth, insomnia, increased blood pressure and pulse, a nd feelings of anxiousness. All questions were answered. Plan: 1. Continue healthy eating, be as active as she can be 2. Begin phentermine 37.5 mg a day 3. F/U 2 month Maria Dolores Urbina MA - 04/14/2013 11:08 AM PDT Finger stick performed in clinic for a capillary A1C documented in this enc ounter Plan of [...] Rd | | | | | | [facility] [place] | | | | | | [address] | | | | | | [phone] | | | | | | | | +--------+ + + + + | 08/19/ | Surgery | Surgery | Chilo | OPEN VENTRAL HERNIA | | 2019 | | | MD Demond Recinos | REPAIR WITH | | | | | [address] | BIOLOGICAL MESH | | | | | [place], [place] | | | | | | [address] | | | | | | [phone] | | | | | | | | +--------+ + + + + | 09/15/ | Office | Cardiology | Randell Franks, | | | 2020 | Visit | | [address] | | | | | | [place], [place] | | | | | | [address] | | | | | | [phone] | | | | | | | | +--------+ + + + + documented as of this encounter Procedures + +--------+ + + + | Procedure Name | Priori | Date/Time | Associated Diagnosis | Comments | | | ty | | | | + +--------+ + + + | HEMOGLOBIN A1C, POC | Routin | 04/14/2013 | DM type 2 | Results for this | | | e | 11:09 AM | (diabetes mellitus, | procedure are in the | | | | PDT | type 2) ([facility]) | results section. | + +--------+ + + + | [place] COLLECTION | Routin | 04/14/2013 | DM type 2 | | | CAPILLARY BLOOD | e | 11:08 AM | (diabetes mellitus, | | | SPECIMEN | | PDT | type 2) ([facility]) | | + +--------+ + + + documented in this encounter Results HEMOGLOBIN A1C, POC (04/14/2013 11:09 AM PDT) + +-------+ + + + | Component | Value | Ref Range | Performed | Pathologist | | | | | At | Signature | + +-------+ + + + | HEMOGLOBIN | 5.0 | 4.0 - 5.7 % | [facility] - | | | A1C,POC | | | [facility] | | | | | [...] | [facility] | [address] | [place], [place] | | | [facility] | [address] | [address] | | | TESTS | | | | + + + + + documented in this encounter Visit Diagnoses + + | Diagnosis | + + | DM type 2 (diabetes mellitus, type 2) ([facility]) - Primary Type II or unspecified type |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 without mention of complication, not stated as uncontrolled | + + | Type 2 diabetes mellitus ([facility]) Type II or unspecified type diabetes mellitus without | | mention of complication, not stated as uncontrolled | + + | AMARA (obstructive sleep apnea) Obstructive sleep apnea (adult) (pediatric) | + + | Morbid obesity ([facility]) Morbid obesity | + + | Edema | + + | GERD (gastroesophageal reflux disease) Esophageal reflux | + + documented in this encounter
--- OUTSIDE RECORDS SUMMARY | ~2019-06-25 | XMS | Encounter Summary ---
Demographics + + + | Address | [address] | | | [place] [address] | + + + | Home Phone [...] + | Katalina Padilla | ECON | [address] | | | | | [place], [place] | | | | | [address] | | + + + + + | Ellie Vang | ECON | Unknown | | + + + + + Care Team Providers + +------+ + | Care Mender Hand Name | Role | Phone | [...] + | Closed | | Cardiology | Procedures | Kp | Tiny, | | | | | [place] | Fadi Person DO | MD Randell | | | | | PATIENT | [address] | [address] | | | | | [address] | [address] | Ave | | | | | | [place], | [place], [place] | | | | | | [place] [address] | [address] | | | | | | Phone: | Phone: | | | | | | [phone] | [phone] | | | | | | Fax: | Fax: | | | | | | [phone] | [phone] | +--------+--------+ + + + + Encounter Details +--------+---------+ + + + | Date | Type | Department | Care Team | Description | +--------+---------+ + + + | 04/03/ | Office | Cardiology | Randell Franks, | Morbid obesity (HCC) | | 2015 | Visit | Preventive at [facility] | [address] | (Primary Dx); Type | | | | [address] | Ave [place], [place] | 2 diabetes mellitus | | | | Mailcode: [place] | [address] | without complication | | | | [facility] | [phone] | ([facility]) | | | | and [address], | | | | | | [address] | | | | | | [place], [place] | | | | | | [address] | | | | | | [phone] | | | +--------+---------+ + + + [...] + + + | Blood Pressure | 128/69 | 04/03/2015 10:36 AM | | | | | PDT | | + + + + + | Pulse | 107 | 04/03/2015 10:36 AM | | | | | PDT | | + + + + + | Temperature | - | - | | + + + + + | Respiratory Rate | - | - | | + + + + + | Oxygen Saturation | 99% | 04/03/2015 10:36 AM | | | | | PDT | | + + + + + | Inhaled Oxygen | - | - | | | Concentration | | | | + + + + + | Weight | 175.1 kg (386 lb) | 04/03/2015 10:36 AM | | | | | PDT | | + + + + + | Height | 154.9 cm (5' 1") | 04/03/2015 10:36 AM | | | | | PDT | | + + + + + | Body Mass Index | 72.93 | 04/03/2015 10:36 AM | | | | | PDT | | + + + + + documented in this encounter Progress Notes Randell Franks MD - 04/03/2015 11:17 AM PDTFormatting of this note might be [...] 500 mg by mouth once daily. CALCIUM CRB&TAQ-A7-WSE05-GENIS ORAL Take 1 tablet by mouth two times daily. ergocalciferol (VITAMIN D2) 50,000 unit oral capsule Take 50,000 Units by mouth twice w eekly (on Thursday and ). FLUoxetine 40 mg Oral capsule Take 40 mg by mouth once daily. HUM INSULIN NPH/REG INSULIN HM (HUMULIN 70/30 SUBQ) Inject 50 cc under the skin (SUBC) once daily. lorcaserin 10 mg oral tablet Take 10 mg by mouth two times daily. magnesium oxide 400 mg oral [...] (f or no BM for 2 days). potassium chloride SR 10 mEq oral tablet,ER particles/crystals Take 10 mEq by mouth onc e daily. pseudoephedrine 60 mg oral tablet Take 120 mg by mouth two times daily. ranitidine 300 mg Oral tablet Take 300 mg by mouth once daily at bedtime. senna-docusate 8.6-50 mg Oral tablet Take 1 Tab by mouth two times daily. (Patient leona ng differently: Take 1 tablet by mouth once daily as needed.) thyroid (ARMOUR THYROID) 30 mg oral tablet tab Take 30 mg by mouth once daily. topiramate (TOPAMAX) 100 mg oral tablet Take 1 tablet by mouth two times daily. (Patien t taking differently: Take 200 mg by mouth once daily.) TORSEMIDE ORAL Take 40 mg by mouth two times daily. traZODone 150 mg Oral tablet Take 150 mg by mouth once daily at bedtime. No current facility-administered medications for this visit. S: Dylan is a 38 y.o. female here for follow-up of obesity and T2DM. Since I saw Ms. Livia singh last, continues on phentermine and 100 mg topiramate BID with good appetite suppression an d no side effects. She reports undergoing a repeat heania repair 1 month ago without compli cations. The lastest recommendation from the Bariatric Surgery group is for her to lose "an other 50 lbs." No specific target weight has been documented, but if we use her last psychiatric surgery clinic weight of 410 lbs, this would put her at 360 lbs before consideration for RYGBP. She is working with the bariatric surgery tracer lathe set up operator to try to achieve this. She states that when put on the "liver reduction diet" she lost weight down to ~ 275 lbs but be came sick and was ketotic, so she is now targeting her calorie level to ~ 1100 with a higher carb amount, and feel better. Her CBG's "are good", ranging in the 80 to 100 mg/dL range and she reports her last A1c was < 6%. As her CBG's have improved, she has lowered her insulin dose. Otherwise she reports no new medical conditions, concerns, or changes in medications. Weight: Down nearly 20 lbs from my last visit Diet: healthy, working with Bar Surg tracer lathe set up operator Exercise: "I walk everywhere." ROS: No CP, SOB. O: vitals BP 128/69 | Pulse 107 | Ht 1.549 m (5' 1") | Wt 175.088 kg (386 lb) | SpO2 99% | BMI 72.97 kg/(m^2) PE: Gen: pleasant, NAD Lungs: Clear to auscultation Heart: Reg, no MRG Labs: Results for DYLAN CRISTINA ( ) as of 04/03/2015 11:17 03/06/2014 13:55 08/28/2014 11:11 TSH 2.05 HEMOGLOBIN A1C 5.8 (H) 5.3 Assessment: 1) T2 Diabetes: Under very good control by report. No opportunities to add in a GLP-[address] or SGLT2 antagonist. She will continue present management under the guidance of her PCP, monitor glucose control. 2) Morbid obesity: She is attempting dieting to lose the additional weight requested by the bariatric surgery group. Maxed out on current weight loss medication options, unless she c an afford lorcaserin. Side effects were explained, all questions were answered. A script f or this med was given and if she can afford it, she will try it in addition to the phentermi ne + topiramate. 3) Hypothyroidism: TSH stable, will continue to monitor yearly. Plan: 1) Continue healthy eating, be as active as she can be, phentermine and topiramate 2) If she can afford it, begin lorcaserin 10 mg BID 3) Continue working with Bariatric Surgery clinic to achieve targeted weight loss 4) F/U 4- month, check A1c at that time.Electronically signed by Randell Franks MD at 0 04/03/2015 11:32 AM PDTdocumented in this encounter Plan of [...] | Encounter | | MD [address] | | | | | [address] | | | | | | [place], [place] | | | | | | [address] | | | | | | [phone] | | | | | | | | +--------+ + + + + | 08/19/ | Surgery | Surgery | Chilo, | OPEN VENTRAL HERNIA | | 2019 | | | MD Jorje [address] | REPAIR WITH | | | | | [address] | BIOLOGICAL MESH | | | | | [place], [place] | | | | | | [address] | | | | | | [phone] | | | | | | | | +--------+ + + + + | 09/15/ | Office | Cardiology | Randell Franks, | | | 2019 | Visit | | [address] | | | | | | Ave [facility] [place] | | | | | | [address] | | | | | | [phone] | | | | | | | | +--------+ + + + + documented as of this encounter Visit Diagnoses + + | Diagnosis | + + | Morbid obesity (HCC) - Primary Morbid obesity | + + | Type 2 diabetes mellitus without complication (HCC) | + + documented in this encounter
--- OUTSIDE RECORDS SUMMARY | ~2019-06-25 | XMS | Encounter Summary ---
Demographics + + + | Address | [address] | | | [place] [address] | + + + | Home Phone | | + + + | Preferred Language | Unknown | + + + | Marital Status | Single | + + + | Yarsanism Affiliation | NON | + + + [...] + | Katalina Padilla | ECON | [address] | | | | | [place], [place] | | | | | [address] | | + + + + + | Ellie Vang | ECON | Unknown | | + + + + + Care Team Providers + +------+ + | Care Hardwood Floor Installation Helper Name | Role | Phone | [...] | | | [address] | [place], [place] | Dx); History of | | | | Mailcode: Center | [address] | Frandy-en-Y gastric | | | | for Health and | | bypass | | | | [facility], [facility] [address] | | | | | | [place], [place] | | | | | | [address] | | | | | | [phone] | | | +--------+---------+ + + + [...] to the healing stomach. There are also penitentiary complications of poor wound healing and gastric u lcers. These ulcers are started by smoking or using other nicotine products (vapor cigarett es etc). Gastric bypass patients should also avoid NSAIDS(ibuprofen, advil, motrin, naprosyn/naproxe n/aleve) to prevent gastric/marginal ulcers. Please visit with our Platform Loader (RD) for instructions about your Bariatric diet, assistance with calorie counts, tips and tricks for working with your diet restrictions, an d recipes after bariatric surgery. Daily yogurt; even just 1 tablespoon twice a day will provide enough probiotics to optimize digestion. Try to use a high-quality, probiotic-dense yogurt (eg Zaria's, [place], Lif eway Kefir, Field Services Analyst [employer]'s Khmer Yogurt). Remember to chew your food well, [...] Electronically signed on 04/01/2018 at 11:36 AM Edlon Wagner MD. Anisa Garcia M D - [...] protein daily, and 64 oz water daily. [employer] just changed diet to he lp her [...] by communicating with her mother - Follow [employer] recommendations to help with nausea (decrease volume, [...] Anisa Dillon MD PGY-1, Red Surgery Pager: [phone] documented in this encounter Plan of Treatment [...] [place] | | | | | | [address] | | | | | | [phone] | | | | | | | | +--------+ + + + + | 08/19/ | Surgery | Surgery | Chilo, | OPEN VENTRAL HERNIA | | 2019 | | | MD Jorje [address] | REPAIR WITH | | | | | [address] | BIOLOGICAL MESH | | | | | [place], [place] | | | | | | [address] | | | | | | [phone] | | | | | | | | +--------+ + + + + | 09/15/ | Office | Cardiology | Randell Franks, | | | 2019 | Visit | | [address] | | | | | | [address] [place], [place] | | | | | | [address] | | | | | | [phone] | | | | | | | [...]
--- OUTSIDE RECORDS SUMMARY | ~2019-06-25 | XMS | Encounter Summary ---
Demographics + + + | Address | [address] | | | [place] [address] | + + + | Home Phone [...] [place], [place] | | | | | [address] | | + + + + + | Ellie Vang | ECON | Unknown | | + + + + + Care Team Providers + +------+ + | Care Missile Inspector Preflight Name | Role | Phone | + +------+ + | Fdai Goodrich DO | PCP | | + +------+ + Reason for Referral Diagnostic Testing (Routine) +--------+--------+ + + + + | Status | Reason | Specialty | Diagnoses / | Referred By | Referred To | | | | | Procedures | Contact | Contact | +--------+--------+ + + + + | Closed | | Cardiology | Diagnoses | Tiny, | | | | | | YO | MD Randell | | | | | | (dyspnea on | [address] | | | | | | [address]) | [address] | | | | | | Procedures | [place], [place] | | | | | | TRANSTHORACI | [address] | | | | | | C | Phone: | | | | | | ECHOCARDIOGR | [phone] | | | | | | AM, ADULT | Fax: | | | | | | | [phone] | | +--------+--------+ + + + + Reason for Visit + + + | Reason | Comments | + + + | Weight gain | | + + + AUTH/CERT +--------+--------+ [...] Description | +--------+---------+ + + + | 11/05/ | Office | Cardiology | Randell Franks, | SANAZ (dyspnea on | | 2016 | Visit | Preventive at [facility] | [address] | exertion) (Primary | | | | [address] | [address] [place], [place] | Dx) | | | | Mailcode: [place] | [address] | | | | | [facility] | [phone] | | | | | and [address], | | | | | | [address] | | | | | | [place], [place] | | | | | | [address] | | | | | | [phone] | | | +--------+---------+ + + + [...] + + + | Blood Pressure | 149/82 | 11/06/2015 11:37 AM | | | | | PDT | | + + + + + | Pulse | 126 | 11/06/2015 11:37 AM | | | | | PDT | | + + + + + | Temperature | - | - | | + + + + + | Respiratory Rate | - | - | | + + + + + | Oxygen Saturation | 94% | 11/06/2015 11:37 AM | | | | | PDT | | + + + + + | Inhaled Oxygen | - | - | | | Concentration | | | | + + + + + | Weight | 214.6 kg (473 lb) | 11/06/2015 11:37 AM | | | | | PDT | | + + + + + | Height | 154.9 cm (5' 1") | 11/06/2015 11:37 AM | | | | | PDT | | + + + + + | Body Mass Index | 89.37 | 11/06/2015 11:37 AM | | | | | PDT | | + + + + + documented in this encounter Progress Notes Randell Franks MD - 11/06/2015 12:29 PM PDTFormatting of this note might be different f rom the original. Reason for visit: Follow-up T2DM and weight management PCP: Fadi Goodrich, DO Patient Active Problem List Diagnosis Date [...] 500 mg by mouth once daily. CALCIUM CRB&EJM-F1-SUE15-GENIS ORAL Take 1 tablet by mouth two times daily. cephALEXin 500 mg oral capsule Take 500 mg by mouth four times daily. clindamycin 300 mg oral capsule Take 500 mg by mouth twice daily (every Thursday and ). ergocalciferol (VITAMIN D2) 50,000 unit oral capsule Take 50,000 Units by mouth twice w eekly (on Thursday and ). FLUoxetine 40 mg Oral capsule Take 40 mg by mouth once daily. gabapentin 300 mg oral capsule Take 300 mg by mouth four times daily. HUM INSULIN NPH/REG INSULIN HM (HUMULIN 70/30 SUBQ) Inject 50 cc under the skin (SUBC) once daily. HYDROcodone-acetaminophen 10-325 mg oral tablet magnesium oxide 400 mg oral tablet Take [...] mg by mouth once daily at bedtime. SULFAMETHOXAZOLE/TRIMETHOPRIM (BACTRIM ORAL) Take by mouth two times daily. thyroid (ARMOUR [...] No current facility-administered medications for this visit. SChandler Ruff is a 38 y.o. female here for follow-up of obesity and T2DM. Since I saw Ms. Livia signh last, 6 months ago, she had initially been able to maintain a roughly 100 pound weight los s from 475 down to 386 pounds. She then began taking lorcaserin and noticed an increase in h er appetite so she subsequently stopped this. Also following evaluation for an abdominal her niels she reports very rapid weight gain on the order of 15-20 pounds at the time that was not necessarily accompanied by increased appetite. Instead she reports massive fluid retention in her legs and in her abdominal pannus. This escalated developed into repeated bouts of elizabeth lulitis and she reports now being on her third antibiotic. Despite this she still reports ex treme leg pain, extreme dyspnea on exertion, and feels emotionally distraught. She reports that her primary care doctor is unable to admit her himself to the local hospit al in [place] and so this has been delayed. ROS: No CP. O: vitals BP 149/82 | Pulse 126 | Ht 1.549 m (5' 1") | Wt 214.551 kg (473 lb) | SpO2 94% | BMI 89.42 kg/(m^2) PE: Gen: pleasant, NAD, crying and obviously frustrated Lungs: crackles at bases Heart: Reg, no MRG Abd: Large pendulous pannus which is edematous. Ext: Massive edema bilaterally in her legs. No phill cellulitis noted very tender to touch . Labs: None new to review today. Assessment: 1) Rapid weight/fluid retention, severe YO: I suspect that given how rapidly she has deem ed weight in the last 6 months, nearly 100 pounds, that she has primarily experienced a dete rioration in her cardiovascular status with most likely decompensated heart failure right no w. This has manifested with marked enlargement of both her legs with swelling of her pannus and is complicated now by superficial cellulitis which has been partially treated in both le gs. I am going to have her seen in our emergency room for an n initial evaluation and consid eration of admission for inpatient management. 2) LE cellulitis: This has been partially treated with at least 2 previous antibiotics and she is now currently on sulfa. She feels this has not helped. Also consider possibility of DVT. 3) T2 Diabetes: No longer under very good control by report. this would coincide with her deterioration in her health and cellulitis. In the future we could have opportunities to add in a GLP-1 agonist or SGLT2 antagonist. She will continue present management under the viir dance of her PCP, monitor glucose control. 4) Morbid obesity: She had beenpting dieting to lose the additional weight requested by [facility] bariatric surgery group. This current weight regain is a major setback for her as she rodrigues d maxed out on current weight loss medication options and lorcaserin was not effective for h er. For now we'll continueentermine + topiramate and await evaluation for possible heart fa ilure 3) Hypothyroidism: TSH stable, will continue to monitor yearly. Plan: 1) send to the emergency room for evaluation for decompensated heart failure, consider car diac echo and inpatient management for diuresis and cellulitis control 2) depending on above follow up with me in 6 months documented in this encounter Plan of Treatment [...] [address] | | | | | | [place], [place] | | | | | | [address] | | | | | | [phone] | | | | | | | | +--------+ + + + + | 08/19/ | Surgery | Surgery | Chilo, | OPEN VENTRAL HERNIA | | 2019 | | | MD [address]or[address] | REPAIR WITH | | | | | [address] | BIOLOGICAL MESH | | | | | [place], [place] | | | | | | [address] | | | | | | [phone] | | | | | | | | +--------+ + + + + | 09/15/ | Office | Cardiology | Randell Franks, | | | 2019 | Visit | | [address] | | | | | | Ave [place], [place] | | | | | | [address] | | | | | | [phone] | | | | | | | | +--------+ + + + + + +------+--------+ + + | Name | Type | Priori | Associated Diagnoses | Order Schedule | | | | ty | | | + +------+--------+ + + | TRANSTHORACIC | ECG | Routin | YO (dyspnea on | Ordered: 11/06/2015 | | ECHOCARDIOGRAM, | | e | exertion) | | | ADULT | | | | | + +------+--------+ + + documented as of this encounter Visit Diagnoses + + | Diagnosis | + + | YO (dyspnea on exertion) - Primary Other dyspnea and respiratory abnormality | + + documented in this encounter
--- OUTSIDE RECORDS SUMMARY | ~2019-06-25 | XMS | Encounter Summary ---
Demographics + + + | Address | [address] | | | [place] [address] | + + + | Home Phone [...] + | Katalina Padilla | ECON | [address] | | | | | [place], [place] | | | | | [address] | | + + + + + | Ellie Vang | ECON | Unknown | | + + + + + Care Team Providers + +------+ + | Care Pay Clerk Name | Role | Phone | + +------+ + | Kenyatta Cardenas MD | PCP | | + +------+ + Encounter Details +--------+ + + + + | Date | Type | Department | Care Team | Description | +--------+ + + + + | 03/02/ | Civil Celebrant | Digestive Health | Keren Allen, | | | 2019 | | Center at [facility] [address] | AGACNP [address] | | | | | [address] | [address] [facility] [place] | | | | | Mailcode: [place] | [address] | | | | | for Health and | | | | | | [facility] [address] | | | | | | [place], [place] | | | | | | [address] | | | | | | | [...] Rd | | | | | | [place] | | | | | | [address] | | | | | | [phone] | | | | | | | | +--------+ + + + + | 08/19/ | Surgery | Surgery | Chilo | OPEN VENTRAL HERNIA | | 2019 | | | MD [address] | REPAIR WITH | | | | | [address] | BIOLOGICAL MESH | | | | | [place], [place] | | | | | | [address] | | | | | | [phone] | | | | | | | | +--------+ + + + + | 09/15/ | Office | Cardiology | Randell Franks, | | | 2019 | Visit | | [address] | | | | | | [place] | | | | | | [address] | | | | | | [phone] | | | | | | | | +--------+ + + + + documented as of this encounter Visit Diagnoses Not on filedocumented in this encounter"
--- OUTSIDE RECORDS SUMMARY | ~2019-06-25 | XMS | Encounter Summary ---
Demographics + + + | Address | [address] | | | [place] [address] | + + + | Home Phone [...] [place], [place] | | | | | [address] | | + + + + + | Ellie Vang | ECON | Unknown | | + + + + + Care Team Providers + +------+ + | Care Owner Consulting Engineer Name | Role | Phone | + +------+ + | Fadi Goodrich DO | PCP | | + +------+ + Encounter Details +--------+---------+ + + + | Date | Type | Department | Care Team | Description | +--------+---------+ + + + | 01/11/ | Office | Digestive Health | | Morbid obesity (HCC) | | 2018 | Visit | Center at [facility] [address] | | (Primary Dx) | | | | [address] | | | | | | Mailcode: [place] | | | | | | [facility] and | | | | | | [facility] 2 | | | | | | [place], [place] | | | | | | [address] | | | | | | [phone] | | | +--------+---------+ + + + [...] documented as of this encounter Progress Notes Melissa Garay RN - 01/11/2018 11:00 AM [facility] Bariatric Pre-Op Class Instructor(s): Melissa Garay RN Documented Time of Class: 1055 until 1155 (60 minutes mdhr-oy-feav with patient) Teaching Methods: PowerPoint and verbal presentation with additional written materials and visual aids. Class content included: 1. Pre-Surgery Diet a. Clear liquids only the day before surgery b. NPO at midnight 2. Medications a. Use of Aspirin 7 days prior to surgery b. Use of NSAIDs and other pain medications 7 days prior to surgery 3. Showering or Bathing 4. Smoking 5. Inpatient Hospital Stay a. Destination b. Items to bring to the hospital c. Pre-Surgery ? Discussion regarding indwelling urinary catheters and why they are not routinely used. d. PACU e. 14A ? Emphasis on early and frequent mobility ? Emphasis on fluid goals ? Use of Incentive Spirometer ? Symptom Management ? Discharge Criteria 6. Discharge Planning a. Planning ahead prior to surgery b. Items to buy prior to surgery c. Keeping a journal with fluid/protein d. Transportation 7. [place] for Successful Weight Loss Surgery 8. Surgical Consent 9. Reseach Consent 10. Nutrition Refresher a. Protein b. Fluids c. Vitamins d. Diet Progression Assessment: Pt remained attentive throughout the class and/or participated by asking questi ons or sharing information. Yes documented in this encounter Plan of Treatment [...] [address] | | | | | | [place], [place] | | | | | | [address] | | | | | | [phone] | | | | | | | | +--------+ + + + + | 08/19/ | Surgery | Surgery | Chilo, | OPEN VENTRAL HERNIA | | 2019 | | | MD [address] | REPAIR WITH | | | | | [address] | BIOLOGICAL MESH | | | | | [place], [place] | | | | | | [address] | | | | | | [phone] | | | | | | | | +--------+ + + + + | 09/15/ | Office | Cardiology | Randell Franks, | | | 2019 | Visit | | [address] | | | | | | [place], [place] | | | | | | [address] | | | | | | [phone] | | | | | | | | +--------+ + + + + documented as of this encounter Visit Diagnoses + + | Diagnosis | + + | Morbid obesity (HCC) - Primary Morbid obesity | + + documented in this encounter"
--- OUTSIDE RECORDS SUMMARY | ~2019-06-25 | XMS | Encounter Summary ---
Demographics + + + | Address | [address] | | | [place] [address] | + + + | Home Phone | | + + + | Preferred Language | Unknown | + + + | Marital Status | Single | + + + | Druze Affiliation | NON | + + + [...] + | Katalina Padilla | ECON | [address] | | | | | [place], [place] | | | | | [address] | | + + + + + | Ellie Vang | ECON | Unknown | | + + + + + Care Team Providers + +------+ + | Care Slat Basket Maker Helper Machine Name | Role | Phone | + [...] on | Center at [facility] [address] | RN CARDIAC CATH [address] | | | | | [address] | [facility] [address] | | | | | Mailcode: Center | [place], [place] | | | | | [facility] and | [address] | | | | | [facility] 2 | [phone] | | | | | [place], [place] | | | | | | [address] | | | | | | [phone] | | | +--------+ + + + [...] Rd | | | | | | [place], [place] | | | | | | [address] | | | | | | [phone] | | | | | | | | +--------+ + + + + | 08/19/ | Surgery | Surgery | Chilo, | OPEN VENTRAL HERNIA | | 2019 | | | MD Jorje [address] | REPAIR WITH | | | | | [address] | BIOLOGICAL MESH | | | | | [place], [place] | | | | | | [address] | | | | | | [phone] | | | | | | | | +--------+ + + + + | 09/15/ | Office | Cardiology | Randell Franks, | | | 2019 | Visit | | [address] | | | | | | Ave [place], [place] | | | | | | [address] | | | | | | [phone] | | | | | | | | +--------+ + + + + documented as of this encounter Visit Diagnoses Not on filedocumented in this encounter"
--- OUTSIDE RECORDS SUMMARY | ~2019-06-25 | XMS | Encounter Summary ---
Demographics + + + | Address | [address] | | | [place] [address] | + + + | Home Phone [...] [place], [place] | | | | | [address] | | + + + + + | Ellie Vang | ECON | Unknown | | + + + + + Care Team Providers + +------+ + | Care Mission Planner Name | Role | Phone | [...] | | | | | | [place] [address] | | | | | | [phone] | | | +--------+ + + + [...] Rd | | | | | | [place], [place] | | | | | | [address] | | | | | | [phone] | | | | | | | | +--------+ + + + + | 08/19/ | Surgery | Surgery | Chilo, | OPEN VENTRAL HERNIA | | 2019 | | | MD Jorje [address] | REPAIR WITH | | | | | [address] | BIOLOGICAL MESH | | | | | [place] | | | | | | [address] | | | | | | [phone] | | | | | | | | +--------+ + + + + | 09/15/ | Office | Cardiology | Randell Franks, | | | 2019 | Visit | | [address] | | | | | | [place] | | | | | | [address] | | | | | | [phone] | | | | | | | | +--------+ + + + + documented as of this encounter Visit Diagnoses Not on filedocumented in this encounter"
--- OUTSIDE RECORDS SUMMARY | ~2019-06-25 | XMS | Encounter Summary ---
Demographics + + + | Address | [address] | | | [place] [address] | + + + | Home Phone [...] + | Katalina Padilla | ECON | [address] | | | | | [place], [place] | | | | | [address] | | + + + + + | Ellie Vang | ECON | Unknown | | + + + + + Care Team Providers + +------+ + | Care Comber Fixer Name | Role | Phone | + +------+ + | Kenyatta Cardenas MD | PCP | | + +------+ + Encounter Details +--------+ + + + + | Date | Type | Department | Care Team | Description | +--------+ + + + + | 12/01/ | Documentati | Dig[facility]ive Health | Clinic, Surgery | | | 2016 | on | Center at [place] [id number] | | | | | | [address] | | | | | | Mailcode: [place] | | | | | | for Health and | | | | | | [facility], [facility] 2 | | | | | | [place], [place] | | | | | | [address] | | | | | | [phone] | | | +--------+ + + + [...] Rd | | | | | | [place], [place] | | | | | | [address] | | | | | | [phone] | | | | | | | | +--------+ + + + + | 08/19/ | Surgery | Surgery | Chilo, | OPEN VENTRAL HERNIA | | 2019 | | | MD [address] | REPAIR WITH | | | | | [address] | BIOLOGICAL MESH | | | | | [place], [place] | | | | | | [address] | | | | | | [phone] | | | | | | | | +--------+ + + + + | 09/15/ | Office | Cardiology | Randell Franks, | | | 2019 | Visit | | MD [address] | | | | | | [address] [place], [place] | | | | | | [address] | | | | | | [phone] | | | | | | | | +--------+ + + + + documented as of this encounter Visit Diagnoses Not on filedocumented in this encounter"
--- OUTSIDE RECORDS SUMMARY | ~2019-06-25 | XMS | Encounter Summary ---
Demographics + + + | Address | [address] | | | [place] [address] | + + + | Home Phone [...] + | Katalina Padilla | ECON | [address] | | | | | [place], [place] | | | | | [address] | | + + + + + | Ellie Vang | ECON | Unknown | | + + + + + Care Team Providers + +------+ + | Care Inspector Glass Or Mirror Name | Role | Phone | + +------+ + | Fadi Goodrich DO | PCP | | + +------+ + Encounter Details +--------+ + + + + | Date | Type | Department | Care Team | Description | +--------+ + + + + | 03/02/ | Abstract | Digestive Health | Hernandez Brian, | | | 2012 | | Center at [facility] [address] | MD [address] | | | | | [address] | [facility] | | | | | Mailcode: Center | [place], [place] | | | | | [facility] and | [address] | | | | | [facility], [facility] 2 | [phone] | | | | | [place], [place] | | | | | | [address] | | | | | | [phone] | | | +--------+ + + + [...] | | | | | | [place], [place] | | | | | | [address] | | | | | | [phone] | | | | | | | | +--------+ + + + + | 08/19/ | Surgery | Surgery | Chilo, | OPEN VENTRAL HERNIA | | 2019 | | | MD Jorje [address] | REPAIR WITH | | | | | [address] | BIOLOGICAL MESH | | | | | [facility] [place] | | | | | | [address] | | | | | | [phone] | | | | | | | | +--------+ + + + + | 09/15/ | Office | Cardiology | Randell Franks, | | | 2019 | Visit | | [address] | | | | | | [place] [facility] [place] | | | | | | [address] | | | | | | [phone] | | | | | | | | +--------+ + + + + documented as of this encounter Visit Diagnoses Not on filedocumented in this encounter"
--- OUTSIDE RECORDS SUMMARY | ~2019-06-25 | XMS | Encounter Summary ---
Demographics + + + | Address | [address] | | | [place] [address] | + + + | Home Phone [...] + | Katalina Padilla | ECON | [address] | | | | | [place], [place] | | | | | [address] | | + + + + + | Ellie Vang | ECON | Unknown | | + + + + + Care Team Providers + +------+ + | Care Plant Tech Name | Role | Phone | + +------+ + | Fadi Goodrich DO | PCP | | + +------+ + Encounter Details +--------+ + + + + | Date | Type | Department | Care Team | Description | +--------+ + + + + | 02/09/ | Abstract | Digestive Health | Clinic, Surgery | | | 2016 | | [place] [address] | | | | | | [address] | | | | | | Mailcode: [place] | | | | | | [facility] Health and | | | | | | [facility] 2 | | | | | | [place], [place] | | | | | | [address] | | | | | | [phone] | | | +--------+ + + + [...] Rd | | | | | | [facility] [place] | | | | | | [address] | | | | | | [phone] | | | | | | | | +--------+ + + + + | 08/19/ | Surgery | Surgery | Chilo, | OPEN VENTRAL HERNIA | | 2019 | | | MD Jorje [address] | REPAIR WITH | | | | | [address] | BIOLOGICAL MESH | | | | | [place], [place] | | | | | | [address] | | | | | | [phone] | | | | | | | | +--------+ + + + + | 09/15/ | Office | Cardiology | Randell Franks, | | | 2019 | Visit | | MD [address] | | | | | | [address] [place], [place] | | | | | | [address] | | | | | | [phone] | | | | | | | | +--------+ + + + + documented as of this encounter Visit Diagnoses Not on filedocumented in this encounter"
--- OUTSIDE RECORDS SUMMARY | ~2019-06-25 | XMS | Encounter Summary ---
Demographics + + + | Address | [address] | | | [place] [address] | + + + | Home Phone [...] + | Katalina Padilla | ECON | [address] | | | | | [place], [place] | | | | | [address] | | + + + + + | Ellie Vang | ECON | Unknown | | + + + + + Care Team Providers + +------+ + | Care Timber Treating Tank Operator Name | Role | Phone | + +------+ + | Fadi Goodrich DO | PCP | | + +------+ + Encounter Details +--------+------+ + + + | Date | Type | Department | Care Team | Description | +--------+------+ + + + | 05/27/ | Lab | Laboratory at [facility] | | History of Frandy-en-Y | | 2017 | | [address] | | gastric bypass; | | | | [place], [place] | | Ventral hernia | | | | [address] | | without obstruction | | | | [phone] | | or gangrene; Mixed | | [...] Rd | | | | | | [place], [place] | | | | | | [address] | | | | | | [phone] | | | | | | | | +--------+ + + + + | 08/19/ | Surgery | Surgery | Chilo, | OPEN VENTRAL HERNIA | | 2019 | | | MD [address] | REPAIR WITH | | | | | [address] | BIOLOGICAL MESH | | | | | [place], [place] | | | | | | [address] | | | | | | [phone] | | | | | | | | +--------+ + + + + | 09/15/ | Office | Cardiology | Randell Franks, | | | 2019 | Visit | | [address] | | | | | | [place], [place] | | | | | | [address] | | | | | | [phone] | | | | | | | [...] HTN | | | | | | AMRAA treated with | | | | | [...] | + + + + + | [employer] [facility] | [address] | [place] [address] | | | SERVICES, CORE | CLARENCE [...] | + + + + + | [facility] | [address] | [place] [address] | | | LYDIA RANGEL | CLARENCE [...] (H)Comment: Hgb A1C | <5.7 % | [facility] | | | A1C | Interpretive | [...] | [facility] | | considered for monitoring fdc glycemic control in patients with: | LABORATORY [...] | + + + + + | [facility] | [address] | [place] [address] | | | SERVICES, SPECIAL | PARK [...] INTERPRETIVE | 70 - 180 nmol/L | [facility] | | | WHOLE | INFORMATION: [...] | | | | | determined by [facility] | | | | | | Laboratories. See | | | | | | Compliance Statement B: | | | | | | Amaru.Pumodo/CSPerformed | | | | | | by [employer],[address] | | | | | | Liliana Martinez [facility],[place] | | | | | | [address] | | | | | | [phone].Amaru. | | | | | | comIsmael [...] [facility] | [address] | [place], [place] | | | [facility] | | [address] | | + + + + + [...] | | | LABORATORY | | | BRITISH | | | SERVICES, | | | [...] | + + + + + | [facility] | [address] | [place] [address] | | | SERVICES, CORE | CLARENCE [...] [facility] | [address] | [place] [address] | | | SERVICES, CORE | PARK [...] | + + + + + | [facility] | [address] | [place] [address] | | | SERVICES, CORE | CLARENCE [...] [facility] | [address] | [place] [address] | | | SERVICES, CORE | CLARENCE [...] [facility] | [address] | [place] [address] | | | SERVICES, CORE | PARK [...] | + + + + + | [facility] | [address] | [place] [address] | | | SERVICES, CORE | [address] | | | + + + + + documented in this encounter Visit Diagnoses + + | Diagnosis | + + | History of Franyd-en-Y gastric bypass Bariatric surgery status | + [...]
--- OUTSIDE RECORDS SUMMARY | ~2019-06-25 | XMS | Encounter Summary ---
Demographics + + + | Address | [address] | | | [place] [address] | + + + | Home Phone [...] + | Katalina Padilla | ECON | [address] | | | | | [place], [place] | | | | | [address] | | + + + + + | Ellie Vang | ECON | Unknown | | + + + + + Care Team Providers + +------+ + | Care Molten Iron Pourer Name | Role | Phone | + +------+ + | Fadi Goodrich DO | PCP | | + +------+ + Encounter Details +--------+ + + + + | Date | Type | Department | Care Team | Description | +--------+ + + + + | 11/30/ | Documentati | [facility] | Clinic, | | | 2012 | on | [facility] | Endocrinology | | | | | Center at [facility] | | | | | | [facility] [address] | | | | | | [address] | | | | | | Physician's | | | | | | Pavilion | | | | | | [facility] | | | | | | [place], [place] | | | | | | [address] | | | | | | [phone] | | | +--------+ + + + [...] Rd | | | | | | [place], [place] | | | | | | [address] | | | | | | [phone] | | | | | | | | +--------+ + + + + | 08/19/ | Surgery | Surgery | Chilo, | OPEN VENTRAL HERNIA | | 2019 | | | MD Jor[address] | REPAIR WITH | | | | | [address] | BIOLOGICAL MESH | | | | | [place] | | | | | | [address] | | | | | | [phone] | | | | | | | | +--------+ + + + + | 09/15/ | Office | Cardiology | Randell Franks, | | | 2019 | Visit | | [address] | | | | | | [place], [place] | | | | | | [address] | | | | | | [phone] | | | | | | | | +--------+ + + + + documented as of this encounter Visit Diagnoses Not on filedocumented in this encounter"
--- OUTSIDE RECORDS SUMMARY | ~2019-06-25 | XMS | Encounter Summary ---
Demographics + + + | Address | [address] | | | [place] [address] | + + + | Home Phone [...] + | Katalina Padilla | ECON | [address] | | | | | [place], [place] | | | | | [address] | | + + + + + | Ellie Vang | ECON | Unknown | | + + + + + Care Team Providers + +------+ + | Care Healthcare Receptionist Name | Role | Phone | + [...] + + + + | 02/09/ | Telephone | Digestive Health | [address] | Bariatric Nutrition | | 2015 | | Center at [facility] [address] | [address] | | | | | [place] | Lesly Gutiérrez [place], | | | | | Mailcode: [place] | [place] [address] | | | | | for Health and | | | | | | [facility], [place] [address] | | | | | | [place], [place] | | | | | | [address] | | | | | | [phone] | | | +--------+ + + + [...] [place] | | | | | | [address] | | | | | | [phone] | | | | | | | | +--------+ + + + + | 08/19/ | Surgery | Surgery | Chilo, | OPEN VENTRAL HERNIA | | 2019 | | | MD [address] | REPAIR WITH | | | | | [address] | BIOLOGICAL MESH | | | | | [place], [place] | | | | | | [address] | | | | | | [phone] | | | | | | | | +--------+ + + + + | 09/15/ | Office | Cardiology | Randell Franks, | | | 2020 | Visit | | [address] | | | | | | [place], [place] | | | | | | [address] | | | | | | [phone] | | | | | | | | +--------+ + + + + documented as of this encounter Visit Diagnoses Not on filedocumented in this encounter"
--- OUTSIDE RECORDS SUMMARY | ~2019-06-25 | XMS | Clinical Summary ---
Demographics + + + | Address | [address] | | | [place] [address] | + + + | Home Phone | | + + + | Preferred Language | Unknown | + + + | Marital Status | | + + + | Christianity Affiliation | Unknown | + + + | Race | Unknown | + + + | Ethnic Group | Unknown | + + + Author + + + | Author | [facility] | | | and [place] | + + + | Organization | [facility] | | | and [place] [...] Team Providers + +------+ + | Care Job Interviewer Name | Role | Phone | + [...] + +---------+------+------+-------+ | ALPRAZolam (XANAX) | Take 0.5-1 mg by | | 0 | 08/1 | | Activ | | 0.5 mg tablet | mouth Twice daily | | | 1/20 | | e | | | as needed. | | | 16 | | | + + + +---------+------+------+-------+ | ascorbic acid | Take 1,000 mg by | | 0 | 03/2 | | Activ | | (VITAMIN C) 500 MG | mouth Daily. | | | 6/20 | | e | | tablet | | | | 19 | | | + + + +---------+------+------+-------+ | atenolol | Take 50 mg by mouth | | 0 | | | Activ | | (TENORMIN) 50 mg | nightly. | | | | | e | | tablet | | | | | | | + + + +---------+------+------+-------+ | ergocalciferol | Take 1 capsule by | | 0 | 11/0 | | Activ | | (VITAMIN D-2) 50,000 | mouth every 7 days. | | | /20 | | e | | units capsule [...] Activ | | (MAG-OX) 400 mg | Daily. | | | 120 | | e | | tablet | [...] | mouth every morning. | | | 9/20 | | e | | tablet | | | | 18 | | | + + + +---------+------+------+-------+ | spironolactone | Take 50 mg by mouth | | 0 | 08/1 | | Activ | | (ALDACTONE) 50 mg | Daily. | | | 1/20 | | e [...] + + + +---------+------+------+-------+ | | Take 2 tablets by | | 0 | | | Activ | | Mklwwua-Gyjuhtbgq-Yi | mouth 2 times daily. | | | | | e | | tamin D (CITRACAL | | | | | | | | CALCIUM+D PO) | | | | | | | + + + +---------+------+------+-------+ | promethazine | promethazine 25 | | 0 | | | Activ | | (PHENERGAN) 25 mg/mL | mg/mL injection | | | | | e | | (IV ONLY) injection | solution Take 25 mL | | | | | | | | every day by | | | | | | | | injection route. | | | | | | + + + +---------+------+------+-------+ | topiramate | topiramate 50 mg | | 0 | | | Activ | | (TOPAMAX) 50 MG | tablet Take 2 | | | | | e | | tablet | tablets twice a day | | | | | | | | by oral route. | | | | | | + + + +---------+------+------+-------+ | pramipexole | pramipexole 0.125 mg | | 0 | | | Activ | | (MIRAPEX) 0.125 MG | tablet-2 tablets | | | | | e | | tablet | qhs | | | | | | + + + +---------+------+------+-------+ | thyroid (CRYPTOLOGICAL TECHNICIAN | CRYPTOLOGICAL TECHNICIAN Thyroid 30 mg | | 0 | | | Activ | | THYROID) 30 mg | tablet TAKE ONE | | | | | e | | tablet | TABLET BY MOUTH ONCE | | | | | | | | DAILY | | | | | | + + + +---------+------+------+-------+ | potassium chloride | potassium chloride | | 0 | | | Activ | | 20 mEq CR tablet | ER 20 mEq | | | | | e | | | tablet,extended | | | | | | | | release TAKE Two | | | | | | | | TABLETS BY MOUTH 2 | | | | | | | | TIMES DAILY | | | | | | + + + +---------+------+------+-------+ | meclizine | Take 25 mg by mouth | | 0 | | | Activ | | (ANTIVERT) 25 mg | every morning. | | | | | e | | tablet | | | | | | | + + + +---------+------+------+-------+ | cyanocobalamin | Take 1,000 mcg by | | 0 | | | Activ | | (VITAMIN B-12) 1000 | mouth Every other | | | | | e | | MCG tablet | day. | | | | | | + + + +---------+------+------+-------+ | haloperidol | Take 10 mg by mouth | | 0 | | | Activ | | (HALDOL) 10 MG | 3 times daily as | | | | | e | | tablet | needed. | | | | | | + + + +---------+------+------+-------+ | traZODone | Take 150 mg by mouth | | 0 | | | Activ | | (DESYREL) 150 MG | nightly. | | | | | e | | tablet | | | | | | | + + + +---------+------+------+-------+ | tiZANidine | Take 4 mg by mouth | | 0 | | | Activ | | (ZANAFLEX) 4 mg | every 6 hours as | | | | | e | | tablet | needed. | | | | | | + + + +---------+------+------+-------+ | aspirin 81 mg EC | Take 81 mg by mouth | | 0 | | 2 | Disco | | tablet | Daily. | | | | 02/12 | ntinu | | | | | | | 19 | ed | | | | | | | | (Ther | | | | | | | | apy | | | | | | | | compl | | | | | | | | eted) | + + + +---------+------+------+-------+ | buprenorphine | Place 600 mcg inside | | 0 | 03/0 | /2 | Disco | | (BELBUCA) 300 mcg | cheek every 12 | | | 02/12 | 02/12 | ntinu | | buccal film | hours. | | | 19 | 19 | ed | | | | | | | | (Ther | | | | | | | | apy | | | | | | | | compl | | | | | | | | eted) | + + + +---------+------+------+-------+ Active Problems + + + | Problem | Noted Date | + + + | History of bariatric surgery | 04/28/2019 | + + + | Foot infection | 02/17/2019 | + + + | Nonallopathic lesion of cervical region | 02/17/2019 | + + + | Abdominal hernia | 02/17/2019 | + + + | Abrasion of back with infection | 02/17/2019 | + + + | Abrasion or friction burn of ear without infection | 02/17/2019 | + + + | Acute bronchitis | 02/17/2019 | + + + | Chronic maxillary sinusitis | 02/17/2019 | + + + | Anxiety disorder | 02/17/2019 | + + + | Cellulitis of lower limb | 02/17/2019 | + + + | Chronic pain syndrome | 02/17/2019 | + + + | Cough | 02/17/2019 | + + + | Diarrhea | 02/17/2019 | + + + | Diverticulitis of colon | 02/17/2019 | + + + | Dysuria | 02/17/2019 | + + + | Elevated international normalized ratio (INR) | 02/17/2019 | + + + | Pain in lower limb | 02/17/2019 | + + + | Injury of kidney | 02/17/2019 | + + + | Menometrorrhagia | 02/17/2019 | + + + | Muscle strain | 02/17/2019 | + + + | Persistent insomnia | 02/17/2019 | + + + | Pharyngitis | 02/17/2019 | + + + | Physical deconditioning | 02/17/2019 | + + + | Polyuria | 02/17/2019 | + + + | Postoperative pain | 02/17/2019 | + + + | Pulmonary embolism | 02/17/2019 | + + + | Pyelonephritis | 02/17/2019 | + + + | Serous otitis media | 02/17/2019 | + + + | Sprain of jaw | 02/17/2019 | + + + | Stasis dermatitis | 02/17/2019 | + + + | Thromboembolism of vein | 02/17/2019 | + + + | Upper respiratory infection | 02/17/2019 | + + + | Urinary tract infectious disease | 02/17/2019 | + + + | Wheezing | 02/17/2019 | + + + | Pain in pelvis | 02/17/2019 | + + + | Suprapubic pain | 02/17/2019 | + + + | Chronic left-sided congestive heart failure | 02/17/2019 | + + + | Moderate bipolar disorder | 02/17/2019 | + + + | Deep vein thrombosis of lower extremity | 02/17/2019 | + + + | Recurrent ventral hernia | 02/17/2019 | + + + | Hypokalemia, excessive renal losses | 02/17/2019 | + + + + + | Overview: 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 Assessment & Plan: Hgb appears to run [...] | 11/28/2016 | + + + | Acute right-sided [...] PCP. | + + + + + | Hyperuricemia | 04/21/2016 | + + + | Hypokalemia | 04/21/2016 | + + + | Chronic diastolic heart failure | 12/25/2015 | + + + + + | Overview: Last Assessment & Plan: Heart failure of preserved | | EF- recent DVT/PE/Cellulitis/ morbid obesityPickwickian syndrome | | Recent admission to [facility] for 100lb | | weight gain- DC on diuresis on 03/06/2016- she feel improvedShe | | was on Metolazone and Torsemide prior to hospitalization- both | | have better bioavailability than lasix in gut edema but she | | retained 100lbs - how ever she is currently on only Torsemide | | 100mg Q12hrs [place] in [place] and her weight been stable | | sinceGrace has no other complaints.She is pending to see | | NephrologistCiriloo 02/16/2016([facility])- Normal LV systolic | | function, mildly dilated RVContinue Torsemide and she will | | continue to monitor weights at homeF/u in 6 weeks.She will | | continue to monitor weights, BP, HR at home. Discussed with her | | about CHF- management- importance of weight management, Bp | | management, Na restriction.Continue K and Mg supplementsShyesenia is | | aware I am going on a vacation starting January 01- she will come | | to ER in case of worsening symptoms and will see me first week of | | January. | + + + + + | Hypoalbuminemia | 11/11/2015 | + + + | Right heart [...] | + + + + + | Anasarca | 11/06/2015 | + + + | YO (dyspnea on exertion) | 11/06/2015 | + + + | Deep vein thrombosis (DVT) of left lower extremity | 10/26/2015 | + + + + + | [...] | + + + + + | Diabetes mellitus with insulin therapy | 12/27/2014 | + + + | Hypothyroidism | 08/28/2014 | + + + + + | Overview: Last Assessment & Plan: | | TSH WNL 10/2015. She is on armour thyroid as OP. | | -TSH WNL | | -continue supplementation here | + + + + + | Abdominal pain | 02/07/2014 | + + + | Migraine headache | 12/05/2013 | + + + + + | Overview: Overview: | | Uses topamax for ppx and eletriptan prn | + + + + + | Anemia | 06/16/2013 | + + + | Candidal intertrigo | 06/16/2013 | + + + | Decreased mobility | 06/16/2013 | + + + | Hernia of anterior abdominal wall | 06/16/2013 | + + + | Morbid obesity with alveolar hypoventilation | 06/16/2013 | + + + + + | Overview: Last Assessment & Plan: | | [facility], has lost 50lbs. | + + + + + | PCOS (polycystic ovarian syndrome) | 06/16/2013 | + + + | Skin breakdown | 06/16/2013 | + + + | Vitamin D deficiency | 06/16/2013 | + + + + + | Overview: Overview: | | Ergo 50K 2x/wk since October 2015 | + + + + + | Flank pain | 05/31/2013 | + + + | Type 1 diabetes mellitus | 05/31/2013 | + + + | Diabetes mellitus type 2 without retinopathy | 04/14/2013 | + + + | Edema | 04/14/2013 | + + + + + | Overview: Last Assessment & Plan: Edema. 41yo WF, with | | morbid obesity, she is enrolled in the [facility] bariatric program. | | She has lost [...] | + + + + + | Obstructive sleep apnea syndrome | 04/14/2013 | + + + + [...] inpatient, tolerating well in the | | [facility] arranging for BiPAP upon d/c home to [place] | | areaOverview: Cannot tolerate CPAP | |Cannot tolerate CPAP | + + + + + | Nonallopathic lesion of thoracic region | 03/14/2013 | + + + | Nausea and vomiting | 03/14/2013 | + + + | Obesity | 03/14/2013 | + + + | Postoperative seroma | 12/06/2012 | + + + | Ventral incisional hernia | 11/01/2012 | + + + | Dysmenorrhea | 06/22/2012 | + + + | Influenza vaccine needed | 05/13/2012 | + + + | Acute upper respiratory infection | 02/12/2012 | + + + | Staphylococcal infectious disease | 10/21/2011 | + + + | Tinea corporis | 10/21/2011 | + + + | Furuncle | 10/01/2011 | + + + | Anal pain | 08/06/2011 | + + + | External hemorrhoids without complication | 08/06/2011 | + + + | Internal hemorrhoids without complication | 08/06/2011 | + + + | Acute stress disorder | 04/21/2011 | + + + | Panic | 04/21/2011 | + + + | Atopic dermatitis | 04/21/2011 | + + + | Gastroesophageal reflux disease | 04/14/2011 | + + + | Foot pain | 03/17/2011 | + + + | Periumbilical pain | 03/17/2011 | + + + | Left upper quadrant pain | 03/13/2011 | + + + | Lymphedema | 03/13/2011 | + + + | Neck sprain | 12/16/2010 | + + + | Open wound of anterior abdominal wall | 10/15/2010 | + + + | Right lower quadrant pain | 10/15/2010 | + + + | Acute maxillary sinusitis | 05/06/2010 | + + + | Muscle pain | 05/06/2010 | + + + | Neck pain | 02/27/2010 | + + + | Allergic rhinitis due to pollen | 01/30/2010 | + + + | Migraine | 12/31/2009 | + + + | Moderate depressed bipolar I disorder | 11/27/2009 | + + + [...] | 11/27/2009 | + + + | Fatigue | 11/27/2009 | + + + | [...] | 11/27/2009 | + + + | Depressive disorder | 11/27/2009 | + + + | HTN, goal below 130/80 | 11/27/2009 | + + + | Morbid obesity | 11/27/2009 | + + + | Sleep apnea with use of continuous positive airway pressure | 11/27/2009 | | (CPAP) | | + + + Resolved Problems + + + + | Problem | Noted | Resolved | | | Date | Date | + + + + | Infection of skin and subcutaneous tissue | 02/18/20 | | | | 19 | 9 | + + + + | Type 2 diabetes mellitus without complication, with long-term | 02/18/20 | | | current use of insulin | 19 | 9 | + + + + | Obstructive [...] + + + + | Overview: Overview: [facility] Assessment & Plan: Patient with | | [...] responded well to diuresis at | | [facility] (lost 60lb, down to 410), and then reaccumulated water | | weight on Torsemide and metolazone, which should be less effected | | by gut wall edema than Lasix. She has an appt with nephrology at | | [facility] on 03/17. Weight now 200kg (440lb, [...] Defer Metolazone to her | | outpatient Managing Editor or Environmental Engineering Aide- Will continue KCL | | supplementation at 60meq QID despite the spironolactone as she | | remains on the low side- Encourage daily weights at home with a | | log; she should contact her PCP, Managing Editor or Environmental Engineering Aide for | | a 10lb weight gain [...] + + + + + + | Hypertension | 06/16/20 | | | | 13 | 9 | + + + + | Type 1 diabetes mellitus, uncontrolled | 11/28/19 | | | | 10 | 9 | + + + + Encounters +--------+ + + + + | Date | Type | Specialty | Care Team | Description | +--------+ + + + + | 06/22/ | Hospital | Radiology | Dharmesh Melchor | Deep vein thrombosis | | 2018 | Encounter | | MD Samir Gama, | (DVT) of left lower | | | | | Christian Colvin MD | extremity, | | | | | | unspecified | | | | | | chronicity, | | | | | | unspecified vein | | | | | | (HCC) | +--------+ + + + + | 06/21/ | Telephone | Radiology | Christian Dawson, | Pre-Op (confirm | | 2018 | | | | arrival for 06/22 | | | | | | procedure) | +--------+ + + + + | 06/20/ | Hospital | Radiology | Dharmesh Melchor | Canceled (OTHER) | | 2018 | Encounter | | MD Samir Gama, | | | | | | Christian Colvin MD | | +--------+ + + + + | 06/17/ | Telephone | Radiology | Christian Dawson, | | | 2018 | | | MD | | +--------+ + + + + | 06/14/ | Telephone | Radiology | Dharmesh Fierro, | Procedure | | 2018 | | | RN | | +--------+ + + + + | 06/10/ | Telephone | Radiology | [place] | | | 2018 | | | Mary Ortiz | | | | | | Senior Hardware Engineer | | +--------+ + + + + | 05/26/ | Office | Audiology | Sherron Freedman MS | Normal hearing noted | | 2018 | Visit | | CCC-A | on examination | | | | | | (Primary Dx); | | | | | | Pressure sensation | | | | | | in both ears | +--------+ + + + + | 04/28/ | Office | Cardiology | Sulema Altamirano | Chronic diastolic | | 2019 | Visit | | HILDA Pope | heart failure (HCC) | | | | | | (Primary Dx); | | | | | | History of sinus | | | | | | tachycardia; History | | | | | | of stroke; HTN, | | | | | | goal below 130/80; | | [...] | | | | | embolism | +--------+ + + + + from [...] recent travel history available. | + + Last Filed Vital Signs + + + + + | Vital Sign | Reading | Time Taken | Comments | + + + + + | Blood Pressure | 138/65 | 06/22/2019 10:20 AM | | | | | PST | | + + + + + | Pulse | 78 | 06/22/2019 10:20 AM | | | [...] + + + + | Weight | 124 kg (273 lb 5.9 | 06/22/2019 9:27 AM | | | | oz) | PST | | + + + + + | Height | 147.3 cm (4' 10") | 06/22/2019 9:27 AM | | | | | PST | | + + + + + | Body Mass Index | 57.13 | 06/22/2019 9:27 AM | | | | | PST [...] Exam | | | | | | 5 | | | + + + + + | Diabetic Foot Exam | | | | | | 5 | | | + + + + + | Vaccine: | | 03/24/1988, 06/12/1982, | | | Dtap/Tdap/Td (5 - | 8 | 04/05/1982, Additional history | | | Tdap) | | exists | | + + + + + | Cervical Cancer | | | | | Screening (Pap) | 7 | | | + + + + + | Statin Therapy | | | | | (optimal intensity) | 9 | | | + + + + + | Vaccine: Influenza | | 04/27/2018, 06/04/2017, | | | (#1) | 9 | 04/16/2016, Additional history | | | | | exists | | + + + + + | Hemoglobin A1c | | 10/04/2018 | | | Screening | 9 | | | + + + + + | Microalbumin | | 09/27/2018, 10/07/2017, | | | Screening | 0 | 04/14/2016 | | + + + + + Procedures + +--------+ + + + | Procedure Name | Priori | Date/Time | Associated Diagnosis | Comments | | | ty | | | | + +--------+ + + + | IR REMOVAL FIBRIN | Routin | 06/22/2019 | Deep vein | Results for this | | SHEATH/CLOT ON | e | 4:20 PM | thrombosis (DVT) of | procedure are in the | | DEVICE | | PST | left lower | results section. | | | | | extremity, | | | | | | unspecified | | | | | | chronicity, | | | | | | unspecified vein | | | | | | (HCC) [...] | | use of insulin ([facility]) | | | | | | Mixed | | | | | | hyperlipidemia | | | | | | Personal history of | | | | | | DVT (deep vein | | | | | | thrombosis) History | | | | | | of pulmonary | | | | | | embolism | | + +--------+ + + + | LABS - EXTERNAL SCAN | | 04/09/2019 | | Results for this | | | | 12:00 AM | | procedure are in the | | | | PDT | | results section. | + +--------+ + + + from Last 3 Months Results IR Removal Fibrin Sheath/Clot on Device (06/22/2019 4:20 PM PST) + + | Specimen | + + | | + + + + + | Impressions | Performed At | + + + | Successful right upper extremity PICC line removal. The patient | [facility] | | should continue on her anticoagulation. Signed by: Samir, | | | Christian Knox Sign Date/Time: 06/22/2019 5:17 PM | | + + + + + + | Narrative | Performed At | + + + | RIGHT UPPER EXTREMITY PICC LINE REMOVAL CLINICAL INFORMATION: | [facility] | | 44-year-old female with longstanding right upper extremity PICC line | | | for supplemental hydration with right upper extremity swelling and | | | DVT noted on recent ultrasound, now on Coumadin. Patient presents | | | for PICC line removal, given clot request was made for IR removal of | | | catheter. COMPARISON: None PROCEDURE: The risks, benefits | | | and alternatives were discussed with the patient; consent was | | | obtained and placed in the patient's chart. The risks included but | | | were not limited to puncture site bleeding, stroke, kidney failure, | | | allergic reaction and . The site around the existing right | | | upper extremity PICC line was prepped in the usual sterile fashion, | | | after removal of the StatLock retention device. The PICC line was | | | pulled and direct pressure was held to achieve hemostasis. | | | Maximum sterile barrier techniques taken. All staff present in the | | | room performed hand hygiene prior to the procedure. There were no | | | immediate complications following the procedure. Estimated blood | | | loss: Minimal. Fluoro Time: None Contrast: None The | | | procedure was performed without sedation. FINDINGS: Moderately | | | swollen right upper extremity. Successful PICC line removal. | | + + + + + | Procedure Note | + + | Aditya, Rad Results In - 06/22/2019 5:21 PM PST | | RIGHT UPPER EXTREMITY PICC LINE REMOVAL | | | | CLINICAL INFORMATION: | | 44-year-old female with longstanding right upper extremity PICC line | | for supplemental hydration with right upper extremity swelling and DVT | | noted on recent ultrasound, now on Coumadin. Patient presents for PICC | | line removal, given clot request was made for IR removal of catheter. | | | | COMPARISON: | | None | | | | PROCEDURE: | | The risks, benefits and alternatives were discussed with the patient; | | consent was obtained and placed in the patient's chart. The risks | | included but were not limited to puncture site bleeding, stroke, kidney | | failure, allergic reaction and . | | | | The site around the existing right upper extremity PICC line was | | prepped in the usual sterile fashion, after removal of the StatLock | | retention device. The PICC line was pulled and direct pressure was | | held to achieve hemostasis. | | | | Maximum sterile barrier techniques taken. All staff present in the room | | performed hand hygiene prior to the procedure. | | | | There were no immediate complications following the procedure. | | Estimated blood loss: Minimal. | | | | Fluoro Time: None | | | | Contrast: None | | | | The procedure was performed without sedation. | | | | FINDINGS: | | Moderately swollen right upper extremity. Successful PICC line removal. | | | | IMPRESSION: | | Successful right upper extremity PICC line removal. The patient should | | continue on her anticoagulation. | | | | | | | | Signed by: Abilio Dawson David | | Sign Date/Time: 06/22/2019 5:17 PM | + + + +---------+ + + | Performing | Address | City/State/Zipcode | Phone Number | | Organization | | | | + +---------+ + + | [facility] | | | | + +---------+ + + DIAGNOSTIC REPORT - EXTERNAL SCAN (05/26/2019 12:00 AM PDT) + + + | Narrative | Performed At | + + + | Ordered by an | | | unspecified provider. | | + + + ECG 12 lead (04/28/2019 1:27 PM PDT) [...] INTERPRETAT | Please refer to | | GEOFFMT MUSE | | | ION TEXT | Providers office visit | | | | | | note for Providers | | | | | | Interpretation.Confirmed | | | | | | by [facility] [place] Read Only, | | | | | | [facility] ([id number]), | | | | | | publishing editor Glen Alberto | | | | | | ([phone]) on 04/28/2019 | | | | | [...] | | | + +---------+ + + LABS - EXTERNAL SCAN (04/09/2019 12:00 AM PDT) + + + | Narrative | Performed At | + + + | Ordered by an | | | unspecified provider. | | + + + from Last 3 [...] | [employer] | MODA | [id number] | 10/28/19 | [phone] | | [employer] | | MEDICAID HMO | HEALTH | | 19-Pre | 1 | | id | | | MDCD | | sent | | | | | | [place] | | | | | | + +--------+ +--------+ +---------+--------+ | [employer] | MODA | [id number] | | [phone] | | [employer] | | MEDICAID HMO [...] | Self | [birth year] | [address] | | | al/Fam | | 1974 | [phone] | [place] | | | mireya | | | 3 (Home) | [id number] | + +--------+ +--------+ + + | Elzbieta Cristina | Person | Self | [birth year] | | [address] | | | al/Fam | | 1974 | [phone] | [place], [place] | | | m[place]ya | | | 3 (Home) | [phone] | + +--------+ +--------+ + + Advance Directives + + + + + | Type | Date Recorded | Patient | Explanation | | | | Auto Striper | | + + + + + | Power of | | | | | Authorization Nurse | | | | + + + + + | Advance | | | | | Directive | | | | + + + + +
--- OUTSIDE RECORDS SUMMARY | ~2019-06-25 | XMS | Encounter Summary ---
Demographics + + + | Address | [address] | | | [place] [address] | + + + | Home Phone [...] + | Katalina Padilla | ECON | [address] | | | | | [place], [place] | | | | | [address] | | + + + + + | Ellie Vang | ECON | Unknown | | + + + + + Care Team Providers + +------+ + | Care Vamp Marker Name | Role | Phone | [...] | | 2014 | | Preventive at [facility] | MD [address] | | | | | [address] | [place], [place] | | | | | Mailcode: [facility] | [address] | | | | | [facility] | [phone] | | | | | and [address] | | | | | | [address] | | | | | | [place], [place] | | | | | | [address] | | | | | | [phone] | | | +--------+ + + + [...] [address] | | | | | | [facility] [place] | | | | | | [address] | | | | | | [phone] | | | | | | | | +--------+ + + + + | 08/19/ | Surgery | Surgery | Chilo | OPEN VENTRAL HERNIA | | 2019 | | | MD [address] | REPAIR WITH | | | | | [address] | BIOLOGICAL MESH | | | | | [place], [place] | | | | | | [address] | | | | | | [phone] | | | | | | | | +--------+ + + + + | 09/15/ | Office | Cardiology | Randell Franks, | | | 2019 | Visit | | MD [address] | | | | | | [place], [place] | | | | | | [address] | | | | | | [phone] | | | | | | | | +--------+ + + + + documented as of this encounter Visit Diagnoses Not on filedocumented in this encounter"
--- OUTSIDE RECORDS SUMMARY | ~2019-06-25 | XMS | Encounter Summary ---
Demographics + + + | Address | [address] | | | [place] [address] | + + + | Home Phone [...] + | Katalina Padilla | ECON | [address] | | | | | [place], [place] | | | | | [address] | | + + + + + | Ellie Vang | ECON | Unknown | | + + + + + Care Team Providers + +------+ + | Care Bowling Ball Grader And Marker Name | Role | Phone | [...] + + + + | 02/07/ | Hospital | [address] | [place]ana [place], | | | 2014 - | Encounter | [address] | [address] | | | | | [place], [place] | [address] | | | 02/08/ | | [address] | [place], [place] | | | 2013 | | [phone] | [address] | | | | | | [phone] | | | | | | | [...] + + + | Blood Pressure | 132/73 | 02/08/2014 4:30 AM | | | | | PDT | | + + + + + | Pulse | 91 | 02/08/2014 4:30 AM | | | | | PDT | | + + + + + | Temperature | 36.6 C (97.9 F) | 02/08/2014 1:37 AM | | | | | PDT | | + + + + + | Respiratory Rate | 18 | 02/08/2014 7:48 AM | | | | | PDT | | + + + + + | Oxygen Saturation | 99% | 02/08/2014 1:37 AM | | | | | PDT | | + + + + + | Inhaled Oxygen | - | - | | | Concentration | | | | + + + + + | Weight | 181.8 kg (400 lb | 02/07/2014 3:25 AM | | | | 14.4 oz) | PDT | | + + + + + | Height | 154.9 cm (5' 1") | 02/07/2014 3:25 AM | | | | | PDT | | + + + + + | Body Mass Index | 75.75 | 02/07/2014 3:25 AM | | | | | PDT | | + + + + + documented in this encounter Discharge Summaries Pradip Starr MD - 02/08/2014 1:05 PM PDTI saw and evaluated the patient. I agree with the findings and the plan of care as documented in the resident s note. PRADIP STARR MD [facility] [address] [facility] [place] [address] orrMaryam hill MD - 1:05 PM PDT [facility] DEPARTMENT OF SURGERY EMERGENCY GENERAL SURGERY Division of Trauma and Critical Care INPATIENT PROVIDER DISCHARGE SUMMARY Note Date: 02/08/2014 Admission Date: 02/07/2014 DYLAN ROMERO, Discharge Date: 08 Feb 2014 PCP: Fadi Goodrich DO Attending Physician: Milana Landaverde MD Author: MARYAM RHODES MD HPI: Dylan Romero is a 38 y.o. Female with morbid obesity, bipolar disorder and Type 2 DM who presented to the [facility] ED ([place], [place]) on 02/06/14, with a week hi story of RUQ abdominal pain that radiates to her back. There, she was found to have leukocyt osis and multiple tiny, mobile stones, + sonographic Peterson's sign on abdominal ultrasound, concerning for acute cholecystitis. She was givenIV antibiotics (cipro, flagyl) and pain med s, then transferred to [facility] by [facility] for further care. Ms. Romero endorsed 7/10 sharp, constant RUQ abdominal pain accompanied by nausea and emesis (x2 yesterday), as well as episodes of foul-smelling diarrhea. She became concerned and dec ided to go to the ED when the abdominal pain started radiating to her back. The pain was not relieved by NSAIDS and worsened with movement. She endorsed subjective chills and respirato ry splinting from the current abdominal pain. Hospital Course: Ms Romero was taken to the operating room for laparoscopic cholecystectomy and intraoperative cholangiogram. The procedure was uncomplicated, however an additional 2 l aparoscopic ports were placed due to the patient's large gallbladder and liver. The patient tolerated the procedure well. On the floor her pain was controlled on oral medication and gricelda patterson was tolerating a regular diet. Therefore, she was deemed ready to be discharged to home wi follow up. Emergency General Surgery Clinic to address the following:post-operative check for cholecys tectomy Outstanding labs/pathology/studies: gallbladder pathology Vitals on discharge: Ht 1.549 m (5' 1"), Wt 181.847 kg (400 lb 14.4 oz), BP 132/73, Pulse 9 1, Temperature 36.6 C (97.9 F), RR 18, SpO2 99%, BMI 75.79 kg/(m^2). Medications: Current Discharge Medication List CONTINUE these medications which have NOT CHANGED Details ALPRAZolam XR 3 mg Oral tablet extended release 24 hr Take 3 mg by mouth once daily in the morning. ascorbic acid (VITAMIN C) 500 mg Oral tablet Take 500 mg by mouth once daily. ASPIRIN/ACETAMINOPHEN/JARON CARB (EXCEDRIN BACK & BODY ORAL) Take 325 mg by mouth four times daily as needed. ergocalciferol (VITAMIN D2) 50,000 unit oral capsule Take 50,000 Units by mouth twice weekl y (on Thursday and ). ferrous sulfate 325 [...] daily in the morning. Administe r before breakfast. Qty: 90 tablet, Refills: 3 piroxicam 20 mg Oral capsule Take 20 mg by mouth once daily. ranitidine 300 mg Oral tablet Take 300 mg by mouth once daily at bedtime. senna-docusate 8.6-50 mg Oral tablet Take 1 Tab by mouth two times daily. Qty: 60 Tab, Refills: 3 thyroid (ARMOUR THYROID) 30 mg oral tablet tab Take 30 mg by mouth once daily. topiramate (TOPAMAX) 25 mg oral tablet Take 100 mg by mouth. Take 1 tab twice daily TORSEMIDE ORAL Take 40 mg by mouth two times daily. traZODone 150 mg Oral tablet Take 150 mg by mouth once daily at bedtime. Schedule the following appointment(s) when you get home Follow up with FADI GOODRICH DO. Contact information [address] [place] [address] Follow up with Trauma Emergency General Surgery at [facility] In 4 weeks. (follow up in 2-4 weeks ) Contact information [address] [facility] Mailcode: L223a Lionelyiarmen [address] [place] [address] Thank you for the opportunity to take care of DYLAN ROMERO during this inpatient stay, it has been our pleasure. Please call with any questions, . Discharging Provider: MARYAM RHODES MD PGY-1, General Surgery Attending Physician: Milana aLndaverde MD documented in this encoun ter Discharge Instructions Instructions Bridger Morales RN - 02/08/2014Patient Education Materials: Follow above mat erials Additional Instructions: Follow above instructions Discharge Nurse: BRIDGER MORALES RN Date: 02/08/2014 Discharge Time: 4:23 PM documented in this encounter Medications at Time [...] documented as of this encounter Progress Notes Pradip Starr MD - 02/08/2014 5:17 AM PDTI saw and evaluated the patient. I agree with the findings and the plan of care as documented in the resident s note. PRADIP STARR MD [facility] [address] [facility] [place] [address] orrMaryam hill MD - 5:17 AM PDT [facility] [place] DEPARTMENT OF SURGERY EMERGENCY GENERAL SURGERY Division of Trauma and Critical Care Attending Physician: Milana Landaverde MD Progress Note Note Date: 02/08/2014 Admission Date: 02/07/2014 DYLAN ROMERO, Hospital Day #1 INTERVAL HISTORY and SUBJECTIVE: To OR last night for laparoscopic cholecystectomy. Uncomplicated, but very large gallbladde r and liver, requiring extra incisions. Very sore this morning. Tolerated clears and says gricelda patterson is hungry. Has not gotten up to walk yet. No flatus yet. Says she would like to go home REVIEW OF SYSTEMS: Pain poorly controlled Flatus: No Tolerating diet: Yes Nausea/Vomiting: None Bowel movement: NO; Sleep: YES OBJECTIVE: PHYSICAL EXAM: LAST VITALS: BP 132/73 | Pulse 91 | Temp 36.6 C (97.9 F) | RR 18 | Ht 1.549 m (5' 1") | Wt 181.847 kg (400 lb 14.4 oz) | SpO2 99% | BMI 75.79 kg/(m^2) 24 Hour Vital Min/Max: Systolic (24hrs), Av mmHg, Min:115 mmHg, Max:164 mmHg Diastoli c (24hrs), Av mmHg, Min:61 mmHg, Max:81 mmHg GENERAL: well-developed, well-nourished, cooperative and talkative ABDOMEN: incisional tenderness, Obese and Incision clean without erythema : Ruiz catheter in place Extremities:Warm and well perfused, IV sites clean, without infection Patient Active Hospital Problem List: 1) Cholecystitis ASSESSMENT, MEDICAL DECISION MAKING AND PLAN: DYLAN ROMERO- 38 y.o. y/o female admitted on 02/07/2014 3:20 AM and hospital day 1 with following current issues. Cholecystitis s/p laparoscopic cholecystectomy -Advance diet as tolerated -Remove ruiz -maintain pain control with dilaudid -ambulation Discharge Plan: Likely DC today if pain controlled ID: Antibiotics: not indicated Fluids: PO Feeding: ADAT Analgesia: dilaudid oral Sedation: not indicated Thromboprophylaxis: lovenox if remains in hospital Head of bed: > 30 Ulcer prophylaxis: pepcid Glycemic control: adequate Activity/PT/OT: OOB as tolerated MARYAM RHODES MD PGY-1, General Surgery [phone] pager number [facility] [place] [address] [facility] [address] documented in this encoun ter Plan of [...] Rd | | | | | | [place], [place] | | | | | | [address] | | | | | | [phone] | | | | | | | | +--------+ + + + + | 08/19/ | Surgery | Surgery | Chilo, | OPEN VENTRAL HERNIA | | 2019 | | | MD Jorje [address] | REPAIR WITH | | | | | [address] | BIOLOGICAL MESH | | | | | [place], [place] | | | | | | [address] | | | | | | [phone] | | | | | | | | +--------+ + + + + | 09/15/ | Office | Cardiology | Randell Franks, | | | 2019 | Visit | | [address] | | | | | | [address] [place], [place] | | | | | | [address] | | | | | | [phone] | | | | | | | | +--------+ + + + + + +---------+--------+ + + | Name | Type | Priori | Associated Diagnoses | Date/Time | | | | ty | | | + +---------+--------+ + + | X-RAY CHOLANGIOGRAM | Imaging | Routin | | 02/07/2014 5:58 PM | | INTRAOP | | e | | PDT | + +---------+--------+ + + + +---------+--------+ + + | Name | Type | Priori | Associated Diagnoses | Order Schedule | | | | ty | | | + +---------+--------+ + + | X-RAY CHOLANGIOGRAM | Imaging | Routin | | One Time for 1 | | INTRAOP | | e | | Occurrences starting | | | | | | 02/07/2014 until | | | | | | 02/07/2014 | + +---------+--------+ + + documented as of this encounter Procedures + +--------+ + + + | Procedure Name | Priori | Date/Time | Associated Diagnosis | Comments | | | ty | | | | + +--------+ + + + | PROCEDURE NOTE | Routin | 08/30/2015 | | Results for this | | | e | 6:16 PM | | procedure are in the | | | | PST | | results section. | + +--------+ + + + | PROCEDURE NOTE | Routin | 08/30/2015 | | Results for this | | | e | 6:16 PM | | procedure are in the | | | | PST | | results section. | + +--------+ + + + | PROCEDURE NOTE | Routin | 08/30/2015 | | Results for this | | | e | 6:15 PM | | procedure are in the | | | | PST | | results section. | + +--------+ + + + | CAPILLARY BLOOD | Routin | 02/08/2014 | | Results for this | | GLUCOSE (NO CHG), | e | 1:53 PM | | procedure are in the | | POC | | PDT | | results section. | + +--------+ + + + | CAPILLARY BLOOD | Routin | 02/08/2014 | | Results for this | | GLUCOSE (NO CHG), | e | 10:42 AM | | procedure are in the | | POC | | PDT | | results section. | + +--------+ + + + | CAPILLARY BLOOD | Routin | 02/08/2014 | | Results for this | | GLUCOSE (NO CHG), | e | 7:55 AM | | procedure are in the | | POC | | PDT | | results section. | + +--------+ + + + | CAPILLARY BLOOD | Routin | 02/07/2014 | | Results for this | | GLUCOSE (NO CHG), | e | 9:50 PM | | procedure are in the | | POC | | PDT | | results section. | + +--------+ + + + | LAPAROSCOPIC | Electi | 02/07/2014 | Acute | | | CHOLECYSTECOMY | ve | 3:32 PM | cholecystitis | | | | Surgic | PDT | | | | | al | | | | + +--------+ + + + | ANTIBODY SCREEN | Urgent | 02/07/2014 | | Results for this | | | | 1:45 PM | | procedure are in the | | | | PDT | | results section. | + +--------+ + + + | TYPE AND SCREEN | Urgent | 02/07/2014 | | Results for this | | | | 1:45 PM | | procedure are in the | | | | PDT | | results section. | + +--------+ + + + | ABO & RH TYPE | Urgent | 02/07/2014 | | Results for this | | | | 1:45 PM | | procedure are in the | | | | PDT | | results section. | + +--------+ + + + | CAPILLARY BLOOD | Routin | 02/07/2014 | | Results for this | | GLUCOSE (NO CHG), | e | 9:22 AM | | procedure are in the | | POC | | PDT | | results section. | + +--------+ + + + | CBC AND AUTO DIFF | Routin | 02/07/2014 | | Results for this | | | e | 6:32 AM | | procedure are in the | | | | PDT | | results section. | + +--------+ + + + | INR | Routin | 02/07/2014 | | Results for this | | | e | 6:32 AM | | procedure are in the | | | | PDT | | results section. | + +--------+ + + + | CBC, WITH | Routin | 02/07/2014 | | Results for this | | DIFFERENTIAL | e | 6:32 AM | | procedure are in the | | | | PDT | | results section. | + +--------+ + + + | COMPLETE METABOLIC | Routin | 02/07/2014 | | Results for this | | SET | e | 6:32 AM | | procedure are in the | | (NA,K,CL,CO2,BUN,CRE | | PDT | | results section. | | AT,GLUC,CA,AST,ALT,B | | | | | | MARGIE TOTAL,ALK | | | | | | PHOS,ALB,PROT TOTAL) | | | | | + +--------+ + + + | LIPASE, PLASMA | Routin | 02/07/2014 | | Results for this | | | e | 6:32 AM | | procedure are in the | | | | PDT | | results section. | + +--------+ + + + | MAGNESIUM, PLASMA | Routin | 02/07/2014 | | Results for this | | | e | 6:32 AM | | procedure are in the | | | | PDT | | results section. | + +--------+ + + + | CAPILLARY BLOOD | Routin | 02/07/2014 | | Results for this | | GLUCOSE (NO CHG), | e | 5:17 AM | | procedure are in the | | POC | | PDT | | results section. | + +--------+ + + + | SURGICAL PATHOLOGY | Routin | 02/07/2014 | | Results for this | | | e | | | procedure are in the | | | | | | results section. | + +--------+ + + + documented in this encounter Results PROCEDURE NOTE (08/30/2015 6:16 PM PST)PROCEDURE NOTE (08/30/2015 6:16 PM PST)PROCEDURE N YANE (08/30/2015 6:15 PM PST) + + | Transcriptions | + + | Other, Faculty - 02/09/2014 11:16 PM PDT | + + CAPILLARY BLOOD GLUCOSE (NO CHG), POC (02/08/2014 1:53 PM PDT) + +---------+ + + + | Component | Value | Ref Range | Performed | Pathologist | | | | | At | Signature | + +---------+ + + + | BLOOD | 163 (H) | 60 - 99 mg/dL | [facility] - | | | GLUCOSE, | | | [facility] | | | POC | [...] [facility] | [address] | [place], [place] | | | [facility] POINT OF CARE | [address] | [address] | | | TESTS | | | | + + + + + CAPILLARY BLOOD GLUCOSE (NO CHG), POC (02/08/2014 10:42 AM PDT) + +---------+ + + + [...] [facility] | [address] | [place], [place] | | | [facility] OF CARE | [facility] | [address] | | | TESTS | | | | + + + + + CAPILLARY BLOOD GLUCOSE (NO CHG), POC (02/08/2014 7:55 AM PDT) + +---------+ + + + [...] [facility] | [address] | [place], [place] | | | [facility] | [facility] | [address] | | | TESTS | | | | + + + + + CAPILLARY BLOOD GLUCOSE (NO CHG), POC (02/07/2014 9:50 PM PDT) + +---------+ + + + | Component | Value | Ref Range | Performed | Pathologist | | | | | At | Signature | + +---------+ + + + | BLOOD | 149 (H) | 60 - 99 [...] + | [facility] | [address] | [place], [place] | | | [facility] OF CARE | [address] | [address] | | | TESTS | | | | + + + + + ANTIBODY SCREEN (02/07/2014 1:45 PM PDT) + + + + + [...] [facility] | [address] | [place] [address] | | | SERVICES, | [address] | | | | TRANSFUSION MEDICINE | | | | + + + + + ABO & RH TYPE (02/07/2014 1:45 PM PDT) + + + + + [...] | + + + + + | [facility] | [address] | [place] [address] | | | SERVICES, | [address] | | | | TRANSFUSION MEDICINE | | | | + + + + + CAPILLARY BLOOD GLUCOSE (NO CHG), POC (02/07/2014 9:22 AM PDT) + +---------+ + + + | Component | Value | Ref Range | Performed | Pathologist | | | | | At | Signature | + +---------+ + + + | BLOOD | 151 (H) | 60 - 99 mg/dL | [...] [facility] | [address] | [place], [place] | | | [address] [facility] [place] | [address] | [address] | | | TESTS | | | | + + + + + CBC AND AUTO DIFF (02/07/2014 6:32 AM PDT) + + + + + + | Component | Value | Ref Range | Performed | Pathologist | | | | | At | Signature | + + + + + + | WHITE CELL | 10.85 | 4.40 - 11.00 | [facility] | | | COUNT | | K/cu mm | LABORATORY | | | | | | SERVICES, | | | | | | CORE | | + + + + + + | RED CELL | 4.19 | 4.00 - 5.20 | [facility] | | | COUNT | | M/cu mm | LABORATORY | | | | | | SERVICES, | | | | | | CORE | | + + + + + + | HEMOGLOBIN | 9.7 (L) | 12.0 - 16.0 | [facility] | | | | | g/dL | LABORATORY | | | | | | SERVICES, | | | | | | CORE | | + + + + + + | HEMATOCRIT | 32.1 (L) | 36.0 - 46.0 % | [facility] | | | | | | LABORATORY | | | | | | SERVICES, | | | | | | CORE | | + + + + + + | MCV | 76.6 (L) | 80.0 - 96.0 fL | [facility] | | | | | | LABORATORY | | | | | | SERVICES, | | | | | | CORE | | + + + + + + | MCHC | 30.2 | 33.0 - 35.5 | [facility] | | | | | g/dL | LABORATORY | | | | | | SERVICES, | | | | | | CORE | | + + + + + + | RDW SD | 47.7 (H) | 35.1 - 46.3 fL | [facility] | | | | | | LABORATORY | | | | | | SERVICES, | | | | | | CORE | | + + + + + + | PLATELET | 280 | 150 - 400 K/cu | [facility] | | | COUNT | | mm | LABORATORY | | | | | | SERVICES, | | | | | | CORE | | + + + + + + | MPV | 10.1 | 9.7 - 12.3 fL | [facility] [...] + + + + | NEUTROPHIL | 60.4 | 50.0 - 70.0 % | [facility] | | | % | | | LABORATORY | | | | | | SERVICES, | | | | | | CORE | | + + + + + + | LYMPHOCYTE | 28.2 | 18.0 - 42.0 % | [facility] | | | % | | | LABORATORY | | | | | | SERVICES, | | | | | | CORE | | + + + + + + | MONOCYTE % | 7.4 | 3.5 - 9.0 % | [facility] | | | | | | LABORATORY | | | | | | SERVICES, | | | | | | CORE | | + + + + + + | EOS % | 2.9 | 1.0 - 3.0 % | [facility] [...] + + + + | IG% | 0.5 | 0.0 - 0.6 % | [facility] | | | | | | LABORATORY | | | | | | SERVICES, | | | | | | CORE | | + + + + + + | NEUTROPHIL | 6.56 | 1.80 - 7.70 | [facility] | | | # | | K/cu mm | LABORATORY | | | | | | SERVICES, | | | | | | CORE | | + + + + + + | LYMPHOCYTE | 3.06 | 1.00 - 4.80 | [facility] | | | # | | K/cu mm | LABORATORY | | | | | | SERVICES, | | | | | | CORE | | + + + + + + | MONOCYTE # | 0.80 | 0.10 - 0.90 | [facility] | | | | | K/cu mm | LABORATORY | | | | | | SERVICES, | | | | | | CORE | | + + + + + + | EOS # | 0.31 | 0.00 - 0.50 | [facility] | [...] + + + | IG# | 0.05 (H) | 0.00 - 0.03 | [facility] [...] + + | [facility] | [address] | [place] [address] | | | LYDIA RANGEL | [address] | | | + + + + + LIPASE, PLASMA (02/07/2014 6:32 AM PDT) + +--------+ + + + | Component | Value | Ref Range | Performed | Pathologist | | | | | At | Signature | + +--------+ + + + | LIPASE | 80 (L) | 152 - 353 U/L | [...] [facility] | [address] | [place] [address] | | | SERVICES, CORE | [address] | | | + + + + + INR (02/07/2014 6:32 AM PDT) + +-------+ + + + [...] | + + + + + | [facility] | [address] | [place] [address] | | | SERVICES, CORE | [address] | | | + + + + + MAGNESIUM, PLASMA (02/07/2014 6:32 AM PDT) + +---------+ + + + | Component | Value | Ref Range | Performed | Pathologist | | | | | At | Signature | + +---------+ + + + | MAGNESIUM,P | 1.6 (L) | 1.8 - 2.5 mg/dL | [facility] [...] | + + + + + | [facility] | [address] [facility] | [place] [address] | | | SERVICES, CORE | [address] | | | + + + + + COMPLETE METABOLIC SET (NA,K,CL,CO2,BUN,CREAT,GLUC,CA,AST,ALT,BILI TOTAL,ALK PHOS,ALB,PROT TOTAL) (02/07/2014 6:32 AM PDT) + +---------+ + + + [...] | | | LABORATORY | | | INDONESIAN | | | SERVICES, | | | | | | CORE | | + +---------+ + + + | EGFR NON | >60 | >60 mL/min | [facility] | | | -RAJNI | | | LABORATORY | | | RICAN | | | SERVICES, | | | | | | CORE | | + +---------+ + + + | SODIUM, | 144 | 136 - 145 | [facility] | [...] +---------+ + + + | CALCIUM, | 8.0 (L) | 8.6 - 10.2 | [facility] [...] +---------+ + + + | TOTAL | 6.4 | 6.4 - 8.2 g/dL | [facility] [...] + + + | ALK PHOS | 91 | 42 - 98 U/L | [facility] | | | | | | LABORATORY | | | | | | SERVICES, | | | | | | CORE | | + +---------+ + + + | AST(SGOT) | 13 (L) | 15 - 41 U/L | [facility] | | | | | | LABORATORY | | | | | | SERVICES, | | | | | | CORE | | + +---------+ + + + | ALT (SGPT) | 14 | 12 - 60 U/L | [facility] | | | | | | LABORATORY | | | | | | SERVICES, | | | | | | CORE | | + +---------+ + + + | ANION | 13 [...] + + + | [facility] | [address] | [place] [address] | | | SERVICES, CORE | [address] | | | + + + + + CAPILLARY BLOOD GLUCOSE (NO CHG), POC (02/07/2014 5:17 AM PDT) + +---------+ + + + | Component | Value | Ref Range | Performed | Pathologist | | | | | At | Signature | + +---------+ + + + | BLOOD | 154 (H) | 60 - 99 mg/dL | [facility] - | | | GLUCOSE, | [...] [facility] | [address] | [place], [place] | | | [facility] OF CARE | [address] | [address] | | | TESTS | | | | + + + + + SURGICAL PATHOLOGY (02/07/2014) + + + + + + | Component | Value | Ref Range | Performed | Pathologist | | | | | At | Signature | + + + + + + | SURGICAL | SOURCE OF SPECIMEN:A | | [facility] | | | PATHOLOGY | Gallbladder Final | | DEPARTMENT | | | | Pathologic | | OF | | | | Diagnosis:Gallbladder, | | PATHOLOGY | | | | cholecystectomy: - | | | | | | Chronic cholecystitis | | | | | | - Cholelithiasis | | | | | | identified grossly | | | | | | Case seen by:Josh | | | | | | Abilio Cochran/Surgical | | | | | | Pathology ResidentPeter | | | | | | Abilio Lockhart, | | | | | | Ph.D./PathologistT:02/09 | | | | | | /rdl Clinical | | | | | | History:The patient is a | | | | | | 38-year-old female with | | | | | | acute cholecystitis. | | | | | | Gross | | | | | | Description:Received is | | | | | | 1 specimen fresh in a | | | | | | container labeled with | | | | | | the patient | | | | | | name(initials MB) and | | | | | | "gallbladder." | | | | | | Received is a | | | | | | collapsed | | | | | | gallbladdermeasuring 9 | | | | | | cm in length x 3 cm | | | | | | cross the fundus. A | | | | | | 0.5-cm in length x0.6-cm | | | | | | in diameter segment of | | | | | | cystic duct is | | | | | | identified. The | | | | | | serosalsurface is | | | | | | borden-pink to slightly | | | | | | discolored borden-green, | | | | | | smooth, and dull.The | | | | | | lumen of the gallbladder | | | | | | contains yellow-green | | | | | | mucoid bile and | | | | | | multiplegreen-brown, | | | | | | faceted calculi | | | | | | measuring up to 1 cm in | | | | | | greatest dimension.The | | | | | | wall measures 0.1 cm in | | | | | | thickness. The mucosal | | | | | | lining is borden-pink | | | | | | totan-green and | | | | | | partially covered with | | | | | | bright yellow | | | | | | cholesterol deposits jorge | | | | | | trabecular pattern. | | | | | | Business Banking Representative | | | | | | sections are submitted. | | | | | | Cassette | | | | | | Index:[id number] My | | | | | | electronic signature | | | | | | indicates that I have | | | | | | personally reviewed | | | | | | alldiagnostic slides, | | | | | | the gross and/or | | | | | | microscopic portion of | | | | | | thisreport and | | | | | | formulated the final | | | | | | diagnosis. | | | | | | Rendering Diagnostician: | | | | | | Mannie Lockhart M.D. | | | | | | Ph.D.PathologistElectron | | | | | | lenore Signed 02/10/2014 | | | | | | 4:28PM | | | | + + + + + + + + | Specimen | + + | | + + + + + + + | Performing | Address | City/State/Zipcode | Phone Number | | Organization | | | | + + + + + | [facility] | [address] | [place] [address] | | | PATHOLOGY | [address] | | | + + + + + documented in this encounter Visit Diagnoses + + | Diagnosis | + + | Abdominal pain - Primary | + + documented in this encounter Administered Medications + +--------+ +--------+------+------+ | Medication Order | MAR | Action | Dose | Rate | Site | | | Action | Date | | | | + +--------+ +--------+------+------+ | acetaminophen (TYLENOL) tablet | Given | 02/09/20 | 650 mg | | | | 650 mg 650 mg, oral, EVERY 6 | | 14 9:11 | | | | | HOURS, First dose (after last | | AM PDT | | | | | modification) on Thu02/07/14 at | | | | | | | 2200, Until Discontinued | | | | | | + +--------+ +--------+------+------+ +-------+ +--------+---+---+ | Given | 02/09/20 | 650 mg | | | | | 14 4:46 | | | | | | AM PDT | | | | +-------+ +--------+---+---+ +---+---+ | | | +---+---+ + +-------+ +------+---+---+ | ALPRAZolam (XANAX) tablet 1 mg | Given | 02/09/20 | 1 mg | | | | 1 mg, oral, THREE TIMES DAILY | | 14 10:17 | | | | | NEEDED, Starting Thu02/08/14 at | | AM PDT | | | | | 0000, Until Thu02/08/14 at 2241, | | | | | | | anxiety | | | | | | + +-------+ +------+---+---+ +-------+ +------+---+---+ | Given | 02/09/20 | 1 mg | | | | | 14 5:25 | | | | | | AM PDT | | | | +-------+ +------+---+---+ +---+---+ | | | +---+---+ + +-------+ +--------+---+---+ | ascorbic acid tablet 500 mg | Given | 02/09/20 | 500 mg | | | | 500 mg, oral, DAILY, First dose | | 14 9:11 | | | | | on Thu02/08/14 at 0900, Until | | AM PDT | | | | | Discontinued | | | | | | + +-------+ +--------+---+---+ +---+---+ | | | +---+---+ + +---------+ +--------+---+---+ | ciprofloxacin (CIPRO) IV 400 mg | New Bag | 02/08/20 | 400 mg | | | | 400 mg, intravenous, EVERY 12 | | 14 9:10 | | | | | HOURS, First dose on Thu02/07/14 | | AM PDT | | | | | at 0730, Until Discontinued | | | | | | + +---------+ +--------+---+---+ +---+---+ | | | +---+---+ + +---------+ +-------+-------+---+ | dextrose 5%-NaCl 0.9% IV | New Bag | 02/09/20 | 100 | 100 | | | infusion 100 mL/hr, intravenous, | | 14 9:11 | mL/hr | mL/hr | | | CONTINUOUS, Starting Thu02/07/14 | | AM PDT | | | | | at 0500, Until Thu02/08/14 at | | | | | | | 1254 | | | | | | + +---------+ +-------+-------+---+ +---------+ +-------+-------+---+ | New Bag | 02/08/20 | 100 | 100 | | | | 14 5:04 | mL/hr | mL/hr | | | | AM PDT | | | | +---------+ +-------+-------+---+ +---+---+ | | | +---+---+ + +-------+ +-------+---+---+ | enoxaparin (LOVENOX) injection | Given | 02/09/20 | 60 mg | | | | 60 mg 60 mg, subcutaneous, EVERY | | 14 11:00 | | | | | 12 HOURS, First dose (after last | | AM PDT | | | | | modification) on Thu02/08/14 at | | | | | | | 1000, Until Discontinued | | | | | | + +-------+ +-------+---+---+ +---+---+ | | | +---+---+ + +---------+ +--------+---+---+ | fentaNYL citrate (PF) | New Bag | 02/08/20 | 50 mcg | | | | (SUBLIMAZE) injection 50 mcg 50 | | 14 8:02 | | | | | mcg, intravenous, POSTPROCEDURE | | PM PDT | | | | | PRN, 4 doses, Starting Tue | | | | | | | 02/07/14 at 1905, Until Tue | | | | | | | 02/07/14 at 2001, severe pain | | | | | | + +---------+ +--------+---+---+ +---------+ +--------+---+---+ | New Bag | 02/08/20 | 50 mcg | | | | | 14 7:51 | | | | | | PM PDT | | | | +---------+ +--------+---+---+ | New Bag | 02/08/20 | 50 mcg | | | | | 14 7:30 | | | | | | PM PDT | | | | +---------+ +--------+---+---+ + +---+ | | | + +---+ | fentaNYL citrate (PF) | | | (SUBLIMAZE) injection 1 dose, | | | Starting 02/07/14 at 1911, | | | Until 02/07/14 at 1913 | | + +---+ | | | + +---+ + +-------+ +-------+---+---+ | FLUoxetine (PROZAC) capsule 40 | Given | 02/09/20 | 40 mg | | | | mg 40 mg, oral, DAILY, First | | 14 9:11 | | | | | dose on Thu02/08/14 at 0900, | | AM PDT | | | | | Until Discontinued | | | | | | + +-------+ +-------+---+---+ +---+---+ | | | +---+---+ + +---------+ +--------+---+---+ | HYDROmorphone (DILAUDID) | New Bag | 02/08/20 | 0.5 mg | | | | injection 0.2-0.5 mg 0.2-0.5 mg, | | 14 8:15 | | | | | intravenous, POSTPROCEDURE PRN, | | PM PDT | | | | | Starting Thu02/07/14 at 1905, | | | | | | | Until Thu02/07/14 at 2120, | | | | | | | moderate pain | | | | | | + +---------+ +--------+---+---+ +---+---+ | | | +---+---+ + +---------+ +------+---+---+ | HYDROmorphone (DILAUDID) | New Bag | 02/09/20 | 1 mg | | | | injection 0.2-2 mg 0.2-2 mg, | | 14 5:25 | | | | | intravenous, EVERY 2 HOURS | | AM PDT | | | | | NEEDED, Starting Thu02/07/14 at | | | | | | | 0326, Until Thu02/08/14 at 0528, | | | | | | | severe pain | | | | | | + +---------+ +------+---+---+ +---------+ +------+---+---+ | New Bag | 02/09/20 | 1 mg | | | | | 14 4:46 | | | | | | AM PDT | | | | +---------+ +------+---+---+ | New Bag | 02/08/20 | 1 mg | | | | | 14 9:45 | | | | | | PM PDT | | | | +---------+ +------+---+---+ +---+---+ | | | +---+---+ + +---------+ +--------+---+---+ | HYDROmorphone (DILAUDID) | New Bag | 02/08/20 | 0.5 mg | | | | injection 0.5 mg 0.5 mg, | | 14 2:30 | | | | | intravenous, ONCE, 1 dose, Tue | | PM PDT | | | | | 02/07/14 at 1500 | | | | | | + +---------+ +--------+---+---+ +---+---+ | | | +---+---+ + +---------+ +--------+---+---+ | HYDROmorphone (DILAUDID) | New Bag | 02/09/20 | 0.5 mg | | | | injection 0.5 mg 0.5 mg, | | 14 1:05 | | | | | intravenous, ONCE, 1 dose, Wed | | PM PDT | | | | | 02/08/14 at 1115 | | | | | | + +---------+ +--------+---+---+ + +---+ | | | + +---+ | HYDROmorphone (DILAUDID) | | | injection 1 dose, Starting Tue | | | 02/07/14 at 1424, Until Tue | | | 02/07/14 at 1430 | | + +---+ | | | + +---+ + +-------+ +------+---+---+ | HYDROmorphone (DILAUDID) tablet | Given | 02/09/20 | 4 mg | | | | 2-4 mg 2-4 mg, oral, EVERY 4 | | 14 7:42 | | | | | HOURS NEEDED, Starting Wed | | AM PDT | | | | | 02/08/14 at 0527, Until Wed | | | | | | | 02/08/14 at 1014, moderate pain, | | | | | | | severe pain | | | | | | + +-------+ +------+---+---+ +---+---+ | | | +---+---+ + +-------+ +------+---+---+ | HYDROmorphone (DILAUDID) tablet | Given | 02/09/20 | 6 mg | | | | 2-6 mg 2-6 mg, oral, EVERY 4 | | 14 1:04 | | | | | HOURS NEEDED, Starting Thu | | PM PDT | | | | | 02/08/14 at 1014, Until Wed | | | | | | | 02/08/14 at 2241, moderate pain, | | | | | | | severe pain | | | | | | + +-------+ +------+---+---+ +-------+ +------+---+---+ | Given | 02/09/20 | 2 mg | | | | | 14 10:47 | | | | | | AM PDT | | | | +-------+ +------+---+---+ +---+---+ | | | +---+---+ + +-------+ +-------+---+---+ | indomethacin SR (INDOCIN SR) | Given | 02/09/20 | 75 mg | | | | capsule 75 mg 75 mg, oral, | | 14 9:11 | | | | | DAILY, First dose on Thu02/08/14 | | AM PDT | | | | | at 0900, Until Discontinued | | | | | | + +-------+ +-------+---+---+ +---+---+ | | | +---+---+ + +-------+ +---------+---+---+ | insulin lispro (HUMALOG) | Given | 02/09/20 | 4 Units | | | | injection subcutaneous, FOUR | | 14 2:11 | | | | | TIMES DAILY, First dose on Thu | | PM PDT | | | | | 02/07/14 at 2200, Until | | | | | | | Discontinued | | | | | | + +-------+ +---------+---+---+ +-------+ +---------+---+---+ | Given | 02/09/20 | 4 Units | | | | | 14 11:00 | | | | | | AM PDT | | | | +-------+ +---------+---+---+ | Given | 02/08/20 | 4 Units | | | | | 14 10:13 | | | | | | PM PDT | | | | +-------+ +---------+---+---+ +---+---+ | | | +---+---+ + +-------+ + +---+---+ | insulin NPH (HUMULIN N) | Given | 02/09/20 | 12 Units | | | | injection 12 Units 12 Units, | | 14 11:00 | | | | | subcutaneous, EVERY 12 HOURS, | | AM PDT | | | | | First dose (after last | | | | | | | modification) on Thu02/07/14 at | | | | | | | 2000, Until Discontinued | | | | | | + +-------+ + +---+---+ +---+---+ | | | +---+---+ + +-------+ + +---+---+ | insulin NPH (HUMULIN N) | Given | 02/08/20 | 12 Units | | | | injection 12.5 Units 12.5 Units, | | 14 9:30 | | | | | subcutaneous, EVERY 12 HOURS, | | AM PDT | | | | | First dose on Thu02/07/14 at | | | | | | | 0800, Until Discontinued | | | | | | + +-------+ + +---+---+ +---+---+ | | | +---+---+ + +---------+ +--------+---+---+ | metroNIDAZOLE (FLAGYL) IV 500 | New Bag | 02/08/20 | 500 mg | | | | mg 500 mg, intravenous, EVERY 8 | | 14 9:10 | | | | | HOURS, First dose on Thu02/07/14 | | AM PDT | | | | | at 0630, Until Discontinued | | | | | | + +---------+ +--------+---+---+ +---+---+ | | | +---+---+ + +-------+ +---+---+---+ | nystatin (MYCOSTATIN) powder | Given | 02/09/20 | | | | | topical, TWICE DAILY, First dose | | 14 9:12 | | | | | on Thu02/07/14 at 0900, Until | | AM PDT | | | | | Discontinued | | | | | | + +-------+ +---+---+---+ +-------+ +---+---+---+ | Given | 02/08/20 | | | | | | 14 9:10 | | | | | | AM PDT | | | | +-------+ +---+---+---+ +---+---+ | | | +---+---+ + +-------+ +-------+---+---+ | OLANZapine (ZYPREXA) tablet 30 | Given | 02/09/20 | 30 mg | | | | mg 30 mg, oral, DAILY, First | | 14 9:11 | | | | | dose on Thu02/08/14 at 0900, | | AM PDT | | | | | Until Discontinued | | | | | | + +-------+ +-------+---+---+ +---+---+ | | | +---+---+ + +---------+ +---------+---+---+ | promethazine (PHENERGAN) | New Bag | 02/08/20 | 6.25 mg | | | | injection 6.25-12.5 mg 6.25-12.5 | | 14 7:16 | | | | | mg, intravenous, POSTPROCEDURE | | PM PDT | | | | | PRN, 1 dose, Starting 02/07/14 | | | | | | | at 1905, Until 02/07/14 at | | | | | | | 1916, nausea/vomiting, 1st line | | | | | | | for breakthrough nausea/vomiting | | | | | | + +---------+ +---------+---+---+ +---------+ +---------+---+---+ | New Bag | 02/08/20 | 6.25 mg | | | | | 14 7:08 | | | | | | PM PDT | | | | +---------+ +---------+---+---+ + +---+ | | | + +---+ | promethazine (PHENERGAN) | | | injection 1 dose, Starting Tue | | | 02/07/14 at 1903, Until Tue | | | 02/07/14 at 1908 | | + +---+ | | | + +---+ + +-------+ + +---+---+ | senna-docusate (SENOKOT S) | Given | 02/09/20 | 1 tablet | | | | 8.6-50 mg 1 tablet 1 tablet, | | 14 9:11 | | | | | oral, TWICE DAILY, First dose on | | AM PDT | | | | | 02/07/14 at 2100, Until | | | | | | | Discontinued | | | | | | + +-------+ + +---+---+ +---+---+ | | | +---+---+ + +-------+ +-------+---+---+ | thyroid tablet 30 mg 30 mg, | Given | 02/09/20 | 30 mg | | | | oral, DAILY, First dose on Thu | | 14 9:11 | | | | | 02/08/14 at 0900, Until | | AM PDT | | | | | Discontinued | | | | | | + +-------+ +-------+---+---+ +---+---+ | | | +---+---+ + +-------+ +--------+---+---+ | topiramate (TOPAMAX) tablet 100 | Given | 02/09/20 | 100 mg | | | | mg 100 mg, oral, TWICE DAILY, | | 14 9:11 | | | | | First dose on Thu02/07/14 at | | AM PDT | | | | | 2145, Until Discontinued | | | | | | + +-------+ +--------+---+---+ +-------+ +--------+---+---+ | Given | 02/09/20 | 100 mg | | | | | 14 4:46 | | | | | | AM PDT | | | | +-------+ +--------+---+---+ +---+---+ | | | +---+---+ + +-------+ +-------+---+---+ | torsemide (DEMADEX) tablet 40 | Given | 02/09/20 | 40 mg | | | | mg 40 mg, oral, TWICE DAILY | | 14 7:42 | | | | | (DIURETIC), First dose on Thu | | AM PDT | | | | | 02/08/14 at 0800, Until | | | | | | | Discontinued | | | | | | + +-------+ +-------+---+---+ +---+---+ | | | +---+---+ documented in this encounter
--- OUTSIDE RECORDS SUMMARY | ~2019-06-25 | XMS | Encounter Summary ---
Demographics + + + | Address | [address] | | | [place] [address] | + + + | Home Phone [...] + | Katalina Padilla | ECON | [address] | | | | | [place], [place] | | | | | [address] | | + + + + + | Ellie Vang | ECON | Unknown | | + + + + + Care Team Providers + +------+ + | Care Biotechnologist Name | Role | Phone | + +------+ + | Fadi Goodrich DO | PCP | | + +------+ + Encounter Details +--------+ + + + + | Date | Type | Department | Care Team | Description | +--------+ + + + + | 08/22/ | Abstract | Cardiology | Randell Franks, | | | 2013 | | Preventive at [facility] | MD [address] | | | | | [address] | Ave [place], [place] | | | | | Mailcode: [facility] | [address] | | | | | [facility] | [phone] | | | | | and Healing, | | | | | | [address] | | | | | | [place], [place] | | | | | | [address] | | | | | | [phone] | | | +--------+ + + + [...] Rd | | | | | | [facility] [place] | | | | | | [address] | | | | | | [phone] | | | | | | | | +--------+ + + + + | 08/19/ | Surgery | Surgery | Chilo, | OPEN VENTRAL HERNIA | | 2019 | | | MD Jorje [address] | REPAIR WITH | | | | | [address] | BIOLOGICAL MESH | | | | | [facility] [place] | | | | | | [address] | | | | | | [phone] | | | | | | | | +--------+ + + + + | 09/15/ | Office | Cardiology | Randell Franks, | | | 2019 | Visit | | [address] | | | | | | [address] [place], [place] | | | | | | [address] | | | | | | [phone] | | | | | | | | +--------+ + + + + documented as of this encounter Visit Diagnoses Not on filedocumented in this encounter"
--- OUTSIDE RECORDS SUMMARY | ~2019-06-25 | XMS | Encounter Summary ---
Demographics + + + | Address | [address] | | | [place] [address] | + + + | Home Phone | | + + + | Preferred Language | Unknown | + + + | Marital Status | | + + + | Buddhist Affiliation | Unknown | + + + | Race | Unknown | + + + | Ethnic Group | Unknown | + + + Author + + + | Author | [facility] | | | and [place] | + + + | Organization | [facility] | | | and [place] [...] Team Providers + +------+ + | Care Party Plan Sales Agent Name | Role | Phone | + +------+ + | Jorje Hill | PCP | | + +------+ + Reason for Referral Diagnostic/Screening (Routine) +--------+--------+ + + + + | Status | Reason | Specialty | Diagnoses / | Referred By | Referred To | | | | | Procedures | Contact | Contact | +--------+--------+ + + + + | Closed | | Radiology | Diagnoses | Ruiz | Scott Ir | | | | | Deep vein | Dharmesh | Intra Op [phone] | | | | | thrombosis | MD Natan | [address] | | | | | (DVT) of | [address] | [place], [place] | | | | | left lower | [address] | [address] | | | | | extremity, | [address] | Phone: | | | | | unspecified | [place], [place] | [phone] | | | | | chronicity, | [id number] | Fax: | | | | | unspecified | Phone: | [phone] | | | | | vein (HCC) | [phone] | | | | | | Procedures | Fax: | | | | | | IR Removal | [phone] | | | | | | Fibrin | | | | | | | Sheath/Clot | | | | | | | on Device | | | +--------+--------+ + + + + Reason for Visit Diagnostic/Screening (Routine) +--------+--------+ + + + + | Status | Reason | Specialty | Diagnoses / | Referred By | Referred To | | | | | Procedures | Contact | Contact | +--------+--------+ + + + + | Closed | | Radiology | Diagnoses | Analisa Melchor Ir | | | | | Deep vein | Dharmesh | Intra Op [address] | | | | | thrombosis | MD Natan | [address] | | | | | (DVT) of | [address] | [place], [place] | | | | | left lower | [address] | [address] | | | | | extremity, | [address] | Phone: | | | | | unspecified | [place], [place] | [phone] | | | | | chronicity, | [id number] | Fax: | | | | | unspecified | Phone: | [phone] | | | | | vein (HCC) | [phone] | | | | | | Procedures | Fax: | | | | | | IR Removal | [phone] | | | | | | Fibrin | | | | | | | Sheath/Clot | | | | | | | on Device | | | +--------+--------+ + + + + Encounter Details +--------+ + + + + | Date | Type | Department | Care Team | Description | +--------+ + + + + | 06/22/ | Hospital | [facility] | Dharmesh Melchor | Deep vein thrombosis | | 2019 | Encounter | CENTER [facility]TRA OP | MD Natan [address] | (DVT) of left lower | | | | [address] | [address] | extremity, | | | | [place], [place] | [place] [address] | unspecified | | | | [address] | [phone] | chronicity, | | | | [phone] | | unspecified vein | | | | | Christian Dawson MD | (HCC) | | | | | [address] | | | | | | [place], [place] | | | | | | [address] | | | | | | | [...] + + documented in this encounter Discharge Instructions Instructions Sheree Snow RN - 06/22/2019 Picc line Catheter Removal Discharge Instructions 1. Leave dressing in place for 24 hours. After 24 hours, may remove the dressing and place a band-aid over the site. 2. No showering for 24 hours. No bathing, swimming, hot tubs, etc for 7 days. 3. If you notice any bleeding from site, hold pressure at site and go to closest emergency room. 4. Monitor site for swelling, oozing, drainage, redness, and/or warmth. If you notice any of the signs, contact the [facility] at between 8:00 am and 5:00 pm, -Thursday. 5. If after hours or on the weekend, go to the closest emergency room. documented in this encounter Medications at Time of Discharge + + + +---------+ + + | Medication | Sig | Dispensed | Refills | Start | End Date | | | | | | Date | | + + + +---------+ + + | ALPRAZolam (XANAX) | Take 0.5-1 mg by | | 0 | 03/06/20 | | | 0.5 mg tablet | mouth Twice daily | | | 16 | | | | as needed. | | | | | + + + +---------+ + + | ascorbic acid | Take 1,000 mg by | | 0 | 10/20/19 | | | (VITAMIN C) 500 MG | mouth Daily. | | | 19 | | | tablet | | | | | | + + + +---------+ + + | atenolol | Take 50 mg by mouth | | 0 | | | | (TENORMIN) 50 mg | nightly. | | | | | | tablet | | | | | | + + + +---------+ + + | | Take 2 tablets by | | 0 | | | | Khwilri-Txatsxkgb-Nh | mouth 2 times daily. | | | | | | tamin D (CITRACAL | | | | | | | CALCIUM+D PO) | | | | | | + + + +---------+ + + | cyanocobalamin | Take 1,000 mcg by | | 0 | | | | (VITAMIN B-12) 1000 | mouth Every other | | | | | | MCG tablet | day. | | | | | + + + +---------+ + + | Docusate Sodium | Take 200 mg by mouth | | 0 | | | | (DULCOLAX STOOL | 2 times daily. | | | | | | SOFTENER PO) | | | | | | + + + +---------+ + + | ergocalciferol | Take 1 capsule by | | 0 | 06/04/20 | | | (VITAMIN D-2) 50,000 | mouth every 7 days. | | | 18 | | | units capsule | | | | | | + + + +---------+ + + | ferrous gluconate | Take 324 mg by | | 0 | | | | (FERGON) 324 mg | mouth. | | | | | | tablet | | | | | | + + + +---------+ + + | haloperidol | Take 10 mg by mouth | | 0 | | | | (HALDOL) 10 MG | 3 times daily as | | | | | | tablet | needed. | | | | | + + + +---------+ + + | lurasidone | Take 40 mg by mouth | | 0 | | | | (LATUDA) 20 mg | Daily. | | | | | | tablet | | | | | | + + + +---------+ + + | magnesium oxide | Take 400 mg by mouth | | 0 | 03/06/20 | | | (MAG-OX) 400 mg | Daily. | | | 16 | | | tablet | | | | | | + + + +---------+ + + | meclizine | Take 25 mg by mouth | | 0 | | | | (ANTIVERT) 25 mg | every morning. | | | | | | tablet | | | | | | + + + +---------+ + + | Multiple | Take 2 tablets by | | 0 | | | | Vitamins-Minerals | mouth Daily. | | | | | | (MULTIVITAMIN WITH | | | | | | | MINERALS) tablet | | | | | | + + + +---------+ + + | PARoxetine (PAXIL) | Take 40 mg by mouth | | 0 | | | | 10 mg tablet | Daily. | | | | | + + + +---------+ + + | phentermine | Take 1 tablet by | | 0 | 06/04/20 | | | (ADIPEX-P) 37.5 mg | mouth every morning. | | | 18 | | | tablet | | | | | | + + + +---------+ + + | potassium chloride | potassium chloride | | 0 | | | | 20 mEq CR tablet | ER 20 mEq | | | | | | | tablet,extended | | | | | | | release TAKE Two | | | | | | | TABLETS BY MOUTH 2 | | | | | | | TIMES DAILY | | | | | + + + +---------+ + + | pramipexole | pramipexole 0.125 mg | | 0 | | | | (MIRAPEX) 0.125 MG | tablet-2 tablets | | | | | | tablet | qhs | | | | | + + + +---------+ + + | promethazine | promethazine 25 | | 0 | | | | (PHENERGAN) 25 mg/mL | mg/mL injection | | | | | | (IV ONLY) injection | solution Take 25 mL | | | | | | | every day by | | | | | | | injection route. | | | | | + + + +---------+ + + | spironolactone | Take 50 mg by mouth | | 0 | 03/06/20 | | | (ALDACTONE) 50 mg | Daily. | | | 16 | | | tablet | | | | | | + + + +---------+ + + | thyroid (CREDIT COLLECTIONS ANALYST | CREDIT COLLECTIONS ANALYST Thyroid 30 mg | | 0 | | | | THYROID) 30 mg | tablet TAKE ONE | | | | | | tablet | TABLET BY MOUTH ONCE | | | | | | | DAILY | | | | | + + + +---------+ + + | tiZANidine | Take 4 mg by mouth | | 0 | | | | (ZANAFLEX) 4 mg | every 6 hours as | | | | | | tablet | needed. | | | | | + + + +---------+ + + | topiramate | topiramate 50 mg | | 0 | | | | (TOPAMAX) 50 MG | tablet Take 2 | | | | | | tablet | tablets twice a day | | | | | | | by oral route. | | | | | + + + +---------+ + + | torsemide | Take 100 mg by mouth | | 0 | 03/06/20 | | | (DEMADEX) 100 mg | 2 times daily. | | | 16 | | | tablet | | | | | | + + + +---------+ + + | traZODone | Take 150 mg by mouth | | 0 | | | | (DESYREL) 150 MG | nightly. | | | | | | tablet | | | | | | + + + +---------+ + + documented as of this encounter Progress Notes Sheree Snow RN - 06/22/2019 10:00 AM PSTD/C instructions given to pt, she did not rec eive any local or pain meds. Dressing on right upper arm from d/c picc line clean, dry, and intact. Slight redness where tape was. Pt reports sensativity to tape. Also pt to follow up with primary care regarding her abd.Electronically signed by Sheree Snow RN at 06/22 10:36 AM Sheree Lizarraga RN - 06/22/2019 10:00 AM PSTPt c/o of RLQ abd redness fr om a lovenox injection that she completed tx 1 week ago. Area is warm, red, and tender and h ardened under the skin, Dr. Dawson look at site, pt is to follow up with primary care provid er who perscribed the lovenox. Pt denies any fevers and no drainage from the site. Per MD no labs or IV needed for this procedure.Electronically signed by Sheree Snow RN at 2018 10:17 AM PSTdocumented in this encounter Plan of Treatment Not [...] + + documented in this encounter Results IR Removal Fibrin Sheath/Clot on Device (06/22/2019 4:20 PM PST) + + | Specimen | + + | | + + + + + | Impressions | Performed At | + + + | Successful right upper extremity PICC line removal. The patient | [facility] | | should continue on her anticoagulation. Signed by: Samir | | | Christian Knox Sign Date/Time: [...] + + | Performing | Address | City/State[facility] | Phone Number | | Organization | | | | + +---------+ + + | [facility] | | | | + +---------+ + + documented in this encounter Visit Diagnoses + + | Diagnosis | + + | Deep vein thrombosis (DVT) of left lower extremity, unspecified chronicity, | | unspecified vein (HCC) | + + documented in this encounter
--- OUTSIDE RECORDS SUMMARY | ~2019-06-25 | XMS | Encounter Summary ---
Demographics + + + | Address | [address] | | | [place] [address] | + + + | Home Phone [...] + | Katalina Padilla | ECON | [address] | | | | | [place], [place] | | | | | [address] | | + + + + + | Ellie Vang | ECON | Unknown | | + + + + + Care Team Providers + +------+ + | Care Clay Structure Builder And Servicer Name | Role | Phone | + [...] + + | 05/13/ | Emergency | [facility] Emergency | Nay Joe | | | 2019 - | | Department [address] MD [address] | | | | | [address] | [address] | | | 05/14/ | | [facility] | [place], [place] | | | 2019 | | [place], [place] | [address] | | | | | [address] | [phone] | | | | | [phone] | | | +--------+ + + + [...] might be different fr om the original. [facility] Discharge Summary Green Surgery Admit Date: 05/13/2019 Discharge Date: 05/14/19 PCP: Kenyatta Hylton MD Attending Physician: Johana Holloway MD Discharging Provider: Anisa Christopher MD PhD Reason for Admission: Incarcerated ventral hernia Principal Final Diagnosis: Incarcerated ventral hernia Additional Diagnoses: Acute pain Procedures: None Hospital Course By Problem: Dylan Romero is a 44 yo F with a history of HTN, DM2, R CHF, hypothyroidism, morbid obe sity s/p laparoscopic antecolic RYGB 2018, AMARA, bipolar disorder, depression, anxiety, histo ry [...] by mouth once daily at bedtime. CALCIUM [id number]-GENIS ORAL Take 2 tablets by mouth two [...] passing gas, please go directly to the [facility]gency department to be evaluated. Pain Medications: [...] the prescribed narcotic-opioid (e.g. oxycodone, hydrocodone, Vicodin, [place], Percoce t, Dilaudid) as needed. Opioid pain medications may cause constipation, so be sure to take a stool softener if you take an opioid pain medication. FOLLOW-UP: Follow-up with your primary care provider for pain control. Dr. Tiwari's sales expert home theater will contact you to try to find a date for surgery. Follow Up: Future Appointments Provider Department Dept Phone Center 06/27/2019 11:55 AM [facility] PHONE/RN CLIN 3 Preoperative Medicine [facility] at [place] [address] [phone] [facility] 06/30/2019 11:30 AM [facility] in [facility] Schedule the following appointment(s) when you get home JONES TIWARI MD. Specialty: General Surgery Why: Dr. Tiwari's sales expert home theater will call you to schedule a surgery date. Contact information [address] [place] [address] [place] [address] Kenyatta Hylton MD. Specialty: Family Medicine Why: For pain control. Contact information [address] [place] [address] Discharge Physical Exam: Last 24 [...] oriented. Grossly intact. Anisa Christopher MD PhD [facility] General Surgery ATTENDING PHYSICIAN STATEMENT I saw the patient and have repeated the pertinent portions of the history and physical exam . I agree with the findings, assessment and plan as documented by the resident. Johana Holloway MD Division of Gastrointestinal and General Surgery [facility] [address] [place] [address] Office: [phone] documented in this e ncounter Discharge Instructions [...] surgery date up as possible and the sales expert home theater will contact you. Elec tronically signed by [...] passing gas, please go directly to the [facility]gency department to be evaluated. Pain Medications: [...] the prescribed narcotic-opioid (e.g. oxycodone, hydrocodone, Vicodin, [place], Percoce t, Dilaudid) as needed. Opioid pain medications may cause constipation, so be sure to take a stool softener if you take an opioid pain medication. FOLLOW-UP: Follow-up with your primary care provider for pain control. Dr. Tiwari's sales expert home theater will contact you to try to find [...] 2 tablets by | | 0 | 05/14/20 | | | mg oral tablet | mouth every six | | | 19 | | | | hours as needed for | | | | | | | mild pain. | | | | | + + + +---------+ + + | ALPRAZolam 1 mg | Take 1 mg by mouth | | 0 | | | | oral tablet | twice daily as | | | | | [...] | | 0 | | | | [id number] | mouth two times | | | [...] + + + +---------+ + + | doxycycline | Take 100 mg by mouth | | 0 | | | | hyclate 100 mg oral | every twelve hours. | | | | | | tablet | (Pharmacist to | | | | | | | substitute salt form | | | | | | | as needed) | | | | | + + + +---------+ + + | ergocalciferol | Take 1 capsule by | | 0 | 06/04/20 | | | (VITAMIN D2) 50,000 | mouth every seven | | | 18 | | | unit oral capsule | days. | | | | | + + + +---------+ + + | fentaNYL 12 mcg/hr | Apply 1 patch to | | 0 | | | | transdermal patch | skin every | | | | | | | seventy-two hours. | | | | | | | Please remove old | | | | | | | patch prior to | | | | | | | placing a new one. | | | | | + + [...] + + +---------+ + + | meclizine 12.5 mg | Take 12.5 mg by | | 0 | | | | oral tablet | mouth twice daily as | | | | | | | needed | | | | | | | (dizziness/vertigo). | | | | | + + [...] + + +---------+ + + | multivitamin with | Take 1 tablet by | | 0 | | | | minerals (HAIR,SKIN | mouth once daily. | | | | | | AND NAILS ORAL) | | | | | | + + + +---------+ + + | nystatin 100,000 | Apply to affected | 15 g | 0 | 05/14/20 | | | unit/gram topical | area two times | | | 19 | | | powderIndications: | daily. Apply to | | | | | | soft tissue | candidal lesions | | | | | | infection | until lesions have | | | | | | | healed. Indications: | | | | | | | skin infection | | | | | + + + +---------+ + + | oxyCODONE | Take 1-2 tablets by | 40 | 0 | 05/14/20 | | | (immediate release) | mouth every six | tablet | | 19 | | | 5 mg oral tablet | hours as needed for | | | | | | | moderate pain | | | | | | | (unresponsive to | | | | | | | non-opioid | | | | | | | medication). | | | | | + + [...] +---------+ + + | polyethylene | Mix 1 packet and | | 0 | 05/14/20 | | | glycol 17 gram oral | take orally once | | | 19 | | | powder in packet | daily. | | | | | [...] + + + +---------+ + + | senna (SENNA LAX) | Take 1 tablet by | | 0 | 05/14/20 | | | 8.6 mg oral tablet | mouth once daily. | | | 19 | [...] [address] | | | | | | [address] | | | | | | [place], [place] | | | | | | [address] | | | | | | [phone] | | | | | | | | +--------+ + + + + | 08/19/ | Surgery | Surgery | Chilo, | OPEN VENTRAL HERNIA | | 2019 | | | MD Jones [address] | REPAIR WITH | | | | | [address] | BIOLOGICAL MESH | | | | | [place], [place] | | | | | | [address] | | | | | | [phone] | | | | | | | | +--------+ + + + + | 09/15/ | Office | Cardiology | Aly Franks, | | | 2019 | Visit | | [address] | | | | | | Ave [place], [place] | | | | | | [address] | | | | | | [phone] | | | | | | | [...] [facility] | [address] | [place], [place] | | | JUSTINE DAWN OF CARE | [address] | [address] | | | TESTS | | | [...] | [facility] | [address] [facility] | [place] [address] | | | SERVICES, CORE | CLARENCE [...] | | | LABORATORY | | | BURM[place] | | | SERVICES, | | | [...] | + + + + + | [facility] Nu-B-2B | [address] [facility] | [place] [address] | | | CLAIRE, LYDIA | PARK [...] is present. GI TRACT: Postoperative changes after Frandy-en-Y | | | gastric bypass with a [...] 10 x 5 cm | | | (). There is an additional small ventral hernia [...] Note | + + | Service Account, [employer] In Interface - 05/13/2019 9:06 PM [...] is present. GI TRACT: Postoperative changes after Frandy-en-Y gastric bypass with a | | small [...] PM Preliminary: Alexx Gordon MD | | Dictation initiated: Alexx Gordon [...] | + + + + + | [facility] | [address] | [place] [address] | | | SERVICES, CORE | CLARENCE [...] | | | | | been | SERVICES, | | | | | established | [...] 5-6 weeks | | | 850 - 82365 6-7 weeks | | | 4000 - 763110 7-12 weeks | | | 48112 - 273404 12-16 weeks | | | 01242 - 723357 16-29 | | | weeks 1400 - 05504 | | | 29-41 weeks 940 - 73551 | | | This test has not been approved for use as a tumor marker in | | | males or females. | | + + + + + + + + | Performing | Address | City/State/Zipcode | Phone Number | | Organization | | | | + + + + + | [facility] | [address] | [place] [address] | | | SERVICES, CORE | PARK [...] | [facility] | [address] [facility] | [place] [address] | | | SERVICES, CORE | CLARENCE [...] | | | LABORATORY | | | [place] | | | SERVICES, | | | [...] MDRD equation recommended by the National | [facility] | | Kidney Disease Education Program. Estimated [...] | [facility] | [address] [facility] | [place] [address] | | | SERVICES, CORE | [address] | | | + + + + + ED INFORMATION EXCHANGE (05/13/2019 5:14 PM PDT) + + | Specimen | + + | | + + + + + | Narrative | Performed At | + + + | COLLECTIVE?NOTIFICATION?05/13/2019 17:13?DYLAN ROMERO?MRN: | [facility] | | [id number] Criteria Met Has Guidelines PDMP Security | MEDICAL | | and Safety No recent Security Events currently on file ED Care | TE[employer]OLOG[employer] | | Guidelines from [employer] [facility] Last Updated: 12/06/18 9:53 AM | | | Care Coordination: Receiving mental health services with | | | [employer].? Please contact [employer] for mental health concerns.? | | | Sarah/Toni Cent[place]: [phone]? Kishan: [phone].? | | | These are guidelines and the provider should exercise clinical | | | judgment when providing care. Care History Medical/Surgical | | | 05/11/19 12:00 AM [facility] Patient is | | | currently established with [facility]. If patient is seen in | | | the ED during business hours. Please contact CHWs at [facility] | | | Clinic. Care Recommendation: [...] care. 08/23/18 12:00 AM | | | [facility] PATIENT HAS A PCP APT TO [...] SUDOGEST 30 MG TABLET 5 BERNARDO MARTIN, GEOTHERMAL OPERATIONS ENGINEER 0 | | | 2019-03-30 SUDOGEST 30 MG TABLET 30 BERNARDO MARTIN, GEOTHERMAL OPERATIONS ENGINEER 0 | | | 2019-03-20 ALPRAZOLAM 1 MG TABLET 60 WINSTON JEFFAS 4 0 2019-03-14 | | | BELBUCA 600 MCG FILM 58 KECIA ZAPIEN, PA 0 2019 PHENTERMINE | | | 37.5 MG TABLET 90 ALY FRANKS MD 4 0 2019-02-21 ALPRAZOLAM 1 | | | MG TABLET 60 WINSTON JEFFAS 4 0 2019-02-11 BELBUCA 600 MCG FILM 56 | | | [facility] 0 2019-01-31 PHENTERMINE 37.5 MG TABLET 30 [...] (12 mo.) Facility Visits | | | [facility] 1 [facility] 1 | | | [facility] 2 Total 4 Note: Visits indicate total | | | known visits. Recent Emergency Department Visit Summary Date | | | Facility City State Type Diagnoses or Chief Complaint May 13, 2019 | | | [facility] [place] Emergency | | | 10,800. A303 May 10, 2019 [facility]. [place] | | | Emergency Nausea with vomiting, unspecified Solitary | | | pulmonary nodule Anxiety disorder, unspecified Ventral | | | hernia without obstruction or gangrene Unspecified abdominal | | | pain Diarrhea, unspecified Allergy status to oth | | | drug/meds/biol subst status Prsnl hx of TIA (TIA), and cereb | | | infrc w/o resid deficits Other exterminator (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 | | | Allergy status to penicillin December 03, 2018 [facility] | | | Health [place] Emergency RIGHT LEG PAIN DUE TO FALL | | | Strain of unsp musc/tend at lower leg level, right leg, init Jul | | | 2018 [facility]. [place] Emergency Other exterminator | | | (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 Upper abdominal pain, unspecified | | | Bariatric surgery status Allergy status to oth drug/meds/biol | | | subst status Noninfective gastroenteritis and colitis, | | | unspecified Obesity, unspecified Anxiety disorder, | | | unspecified watermelon inspector (current) use of aspirin Allergy | | | status to penicillin Personal history of pulmonary embolism | | | Recent Inpatient Visit Summary No recorded inpatient visits. | | | Care Team Provider Specialty Phone Fax Service Dates Treva, | | | Rob Online Communications Manager/Cracking Still Operator Mar 27, 2018 - | | | Current Bernard Hylton MD Internal Medicine: Pulmonary Disease | | | Aug 23, 2018 - Current [employer] This patient has | | | registered at the [facility] Emergency | | | Department For more information visit: | | | [email or web address] | | | [email or web address] PLEASE NOTE: 1. Any care recommendations [...] or completeness of information provided. ? 2019 [employer] | | | [employer]. - [email or web address] | | + + + + + | Procedure Note | + + | Service Account, Rtf Results Inbound - 05/13/2019 5:16 PM PDT Formatting of this | | note might be different from the original.COLLECTIVE?NOTIFICATION?05/13/2019 | | 17:13?DYLAN ROMERO? [facility] Has Guidelines PDMPSecurity and | | SafetyNo recent Security Events currently on fileED Care Guidelines from [employer] - | | [place] Updated: 12/06/18 9:53 AM Care Coordination:Receiving mental health | | services with [employer].? Please contact [employer] for mental health concerns.? | | Sarah/Toni Centeno: [phone]? Kishan: [phone].?These are guidelines | | and the provider should exercise clinical judgment when providing care.Care | | HistoryMedical/Kgyrsjtv93/16/19 12:00 AM [facility] Patient is currently | | established with [facility]. If patient is seen in the ED during business hours. | | Please contact CHWs at [facility].Care Recommendation:This patient has had 5 or [...] clinical judgment when providing care.08/23/18 12:[address] [facility] | | Hospital PATIENT HAS A PCP [...] 600 MCG FILM 57 BETZY | | AJVIER BALDWIN 0 2019-04-12 BELBUCA 600 MCG FILM 3 BETZY BALDWIN PA-C 0 2019-04-09 | | SUDOGEST 30 MG TABLET 5 BERNARDO MARTIN, GEOTHERMAL OPERATIONS ENGINEER 0 2019-03-30 SUDOGEST 30 MG TABLET 30 | | BERNARDO MARTIN, GEOTHERMAL OPERATIONS ENGINEER 0 2019-03-20 ALPRAZOLAM 1 MG TABLET 60 WINSTON JEFFAS 4 0 2019-03-14 | | BELBUCA 600 MCG FILM 58 KECIA ZAPIEN PA 0 2019 PHENTERMINE 37.5 MG TABLET 90 [...] 0 E.D. Visit Count (12 mo.)Facility Visits [facility] | | [facility] 1 [facility] 1 [facility] 2 Total 4 Note: | | Visits indicate total known visits. Recent Emergency Department Visit SummaryDate | | Facility City State Type Diagnoses or Chief Complaint May 13, 2019 [facility] | | [facility] [place] Emergency 10,800. A303 May 10, 2019 [facility] | | [place] Emergency Nausea with vomiting, unspecified Solitary pulmonary nodule | | Anxiety disorder, unspecified Ventral hernia without obstruction or gangrene | | Unspecified abdominal pain Diarrhea, unspecified Allergy status to oth | | drug/meds/biol subst status Prsnl hx of TIA (TIA), and cereb infrc w/o resid deficits | | Other shelter (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 Allergy status to penicillin December 03, 2018 | | [facility] [place] Emergency RIGHT LEG PAIN DUE TO FALL Strain of | | unsp musc/tend at lower leg level, right leg, init Aug 22, 2018 [facility] | | [place] Emergency Other exterminator (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 Upper abdominal pain, | | unspecified Bariatric surgery status Allergy status to oth drug/meds/biol subst | | status Noninfective gastroenteritis and colitis, unspecified Obesity, unspecified | | Anxiety disorder, unspecified MCC (current) use of aspirin Allergy status | | to penicillin Personal history of pulmonary embolism Recent Inpatient Visit | | SummaryNo recorded inpatient visits. Care TeamProvider Specialty Phone Fax Service Dates | | Rob Tilley Online Communications Manager/Cracking Still Operator Mar 27, 2018 - Current | | Bernard Hylton MD Internal Medicine: Pulmonary Disease Aug 23, 2018 - Current | | [employer] patient has registered at the [facility] | | Emergency Department For more information visit: | | [email or web address] PLEASE | | NOTE: 1. Any care [...] completeness of information | | provided.? 2019 [employer] | |[facility] 3 | |Benzos 4 | |Opioids 7 | |Long Acting Opioids 0 | | | | | | | |E.D. Visit Count (12 mo.) | |Facility Visits | |[facility] 1 | |[facility] 1 | |[facility] 2 | |Total 4 | |Note: Visits indicate total known visits. | | | |Recent Emergency Department Visit Summary | |Date Facility City State Type Diagnoses or Chief Complaint | |May 13, 2019 [facility] [place] Emergency | | 10,800. A303 | | | |[facility] [place] [place] [facility] | | Nausea with vomiting, unspecified | | Solitary pulmonary nodule | | Anxiety disorder, unspecified | | Ventral hernia without obstruction or gangrene | | Unspecified abdominal pain | | Diarrhea, unspecified | | Allergy status to oth drug/meds/biol subst status | | Prsnl hx of TIA (TIA), and cereb infrc w/o resid deficits | | Other exterminator (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 | | Allergy status to penicillin | | | |December 03, 2018 [facility] [place] Emergency | | RIGHT LEG PAIN DUE TO FALL | | Strain of unsp musc/tend at lower leg level, right leg, init | | | |Aug 22, 2018 [facility]. [place] Emergency | | Other shelter (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 | | Upper abdominal pain, unspecified | | Bariatric surgery status | | Allergy status to oth drug/meds/biol subst status | | Noninfective gastroenteritis and colitis, unspecified | | Obesity, unspecified | | Anxiety disorder, unspecified | | watermelon inspector (current) use of aspirin | | Allergy status to penicillin | | Personal history of pulmonary embolism | | | | | | | |Recent Inpatient Visit Summary | |No recorded inpatient visits. | | | |Care Team | |Provider Specialty Phone Fax Service Dates | |Rob Tilley Online Communications Manager/Cracking Still Operator Mar 27, 2018 - Current | |Bernard Hylton MD Internal Medicine: Pulmonary Disease Aug 23, 2018 - Current | | | |[employer] | |This patient has registered at the [facility] [place] Emergency Departmen t | |For more information visit: [email or web address] | |PLEASE NOTE: | | 1. Any care recommendations and other clinical information are provided as guidelines or for historical purposes only, and providers should exercise their own clinical judgment whe n providing care. | | 2. You may only use this information for purposes of treatment, payment or health care o perations activities, and subject to the limitations of applicable [employer] Policies. | | 3. You should consult directly with the organization that provided a care guideline or o ther clinical history with any questions about additional information or accuracy or complet eness of information provided. | | | |? 2019 [employer]. - [email or web address] | + + + + + + + | Performing | Address | City/State/Zipcode | Phone Number | | Organization | | | | + + + + + | [facility] | [address], | [place], [place] | [phone] | | TECHNOLOGIES | [address] | [address] | | + + + + + [...] gangrene | + + | History of Frandy-en-Y [...] +-------+ +--------+---+---+ +-------+ +--------+---+---+ | Given | 10/19/20 | 0.2 mg | | | | [...] | | +-------+ +--------+---+---+ | Given | 05/13/20 | [...] | | | | ONCE, 1 dose, 05/13/19 at | | PM PDT | [...] | | | | ONCE, 1 dose, 05/13/19 at | | PM PDT | [...] | | | | ONCE, 1 dose, 05/14/19 at | | PM PDT | [...]
--- OUTSIDE RECORDS SUMMARY | ~2019-06-25 | XMS | Encounter Summary ---
Demographics + + + | Address | [address] | | | [place] [address] | + + + | Home Phone [...] + | Katalina Padilla | ECON | [address] | | | | | [place], [place] | | | | | [address] | | + + + + + | Ellie Vang | ECON | Unknown | | + + + + + Care Team Providers + +------+ + | Care Pipe Fitter Helper Name | Role | Phone | [...] | | | | | essential | [address] | [address] | | | | | hypertension | [address], | Ave | | | | | Type II or | [address] | [place], [place] | | | | | unspecified | [place], [place] | [address] | | | | | type | [address] | Phone: | | | | | diabetes | Phone: | [phone] | | | | | mellitus | [phone] | Fax: | | | | | without | Fax: | [phone] | | | | | mention of | [phone] | | | | | | complication [...] | 2015 | Visit | Preventive at [facility] | MD [address] | mellitus (HCC) | | | | [address] | Ave [place], [place] | (Primary Dx) | | | | Mailcode: [facility] | [address] | | | | | [facility] | [phone] | | | | | and Healing, | | | | | | [address] | | | | | | [place], [place] | | | | | | [address] | | | | | | [phone] | | | +--------+---------+ + + + [...] Rd | | | | | | [place] | | | | | | [address] | | | | | | [phone] | | | | | | | | +--------+ + + + + | 08/19/ | Surgery | Surgery | Chilo, | OPEN VENTRAL HERNIA | | 2019 | | | MD [address] | REPAIR WITH | | | | | [address] | BIOLOGICAL MESH | | | | | [place], [place] | | | | | | [address] | | | | | | [phone] | | | | | | | | +--------+ + + + + | 09/15/ | Office | Cardiology | Randell Franks, | | | 2019 | Visit | | [address] | | | | | | [place], [place] | | | | | | [address] | | | | | | [phone] | | | | | | | [...] + + | [facility] | [address] [facility] | [place] [address] | | | SERVICES, CORE | PARK [...] | + + + + + | [facility] | [address] | [place] [address] | | | SERVICES, SPECIAL | PARK [...]
--- OUTSIDE RECORDS SUMMARY | ~2019-06-25 | XMS | Encounter Summary ---
Demographics + + + | Address | [address] | | | [place] [address] | + + + | Home Phone | | + + + | Preferred Language | Unknown | + + + | Marital Status | | + + + | Bahai Affiliation | Unknown | + + + | Race | Unknown | + + + | Ethnic Group | Unknown | + + + Author + + + | Author | [facility] | | | and Jeffana | + + + | Organization | [facility] | | | and Jeffana | [...] Team Providers + +------+ + | Care Reinsurance Claims Analyst Name | Role | Phone | + +------+ + PCP | Unavailable | + +------+ + Encounter Details +--------+ + + + + | Date | Type | Department | Care Team | Description | +--------+ + + + + | 03/31/ | Orders Only | [facility] | Dharmesh Escobar, | | | 2017 | | NEPHROLOGY [place] | [address] | | | | | [address] | [address] | | | | | [address] [place], [place] | [place] | | | | | [address] | [address] | | | | | [phone] | [phone] | | | | | | | [...] | EXTERNAL LAB: CBC | Routin | 03/31/2017 | | Results for this | | | e | 2:35 PM | | procedure are in the | | | | PDT | | results section. | + +--------+ + + + | URINALYSIS WITH | Routin | 03/31/2017 | | Results for this | | MICROSCOPIC IF | e | 2:35 PM | | procedure are in the | | INDICATED | | PDT | | results section. | + +--------+ + + + | URIC ACID | Routin | 03/31/2017 | | Results for this | | | e | 2:35 PM | | procedure are in the | | | | PDT | | results section. | + +--------+ + + + | RENAL FUNCTION PANEL | Routin | 03/31/2017 | | Results for this | | | e | 2:35 PM | | procedure are in the | | | | PDT | | results section. | + +--------+ + + + documented in this encounter Results Urinalysis with Microscopic if Indicated (03/31/2017 2:35 PM PDT) + + + + + + | Component | Value | Ref Range | Performed | Pathologist | | | | | At | Signature | + + + + + + | Color | Yellow | | EXTERNAL | | | | | | LAB | | + + + + + + | Clarity | Clear | | EXTERNAL | | | | | | LAB | | + + + + + + | Spec Grav, | 1.006 | 1.005 - 1.030 | EXTERNAL | [...] + +---------+ + + External Lab: CBC (03/31/2017 2:35 PM PDT) + + + + + + | Component | Value | Ref Range | Performed | Pathologist | | | | | At | Signature | + + + + + + | WBC | 11.5 (A) | 4.5 - 11.0 10 | EXTERNAL | | | | | | LAB | | + + + + + + | RED CELL | 5.11 (A) | 3.8 - 5.1 10 | EXTERNAL | | | COUNT | | | LAB | | + + + + + + | Hgb | 13.3 | 12.0 - 16.0 | EXTERNAL | | | | | g/dL | LAB | | + + + + + + | Hematocrit, | 41.9 | 35 - 45 % | EXTERNAL | | | POC | | | LAB | | + + + + + + | MCV | 82.0 | 81 - 99 fL | EXTERNAL | | | | | | LAB | | + + + + + + | MCH | 26 (A) | 27 - 33 pg | EXTERNAL | | | | | | LAB | | + + + + + + | MCHC | 32 | 30 - 36 g/dL | EXTERNAL | | | | | | LAB | | + + + + + + | Platelet | 307 | 140 - 440 K/ L | EXTERNAL | | | Count | | | LAB | | | Plasma | | | | | + + + + + + | RDW-CV | 16.8 (A) | 10.5 - 15.0 % | [...] | + +---------+ + + Uric Acid (03/31/2017 2:35 PM PDT) + +---------+ + + + | Component | Value | Ref Range | Performed | Pathologist | | | | | At | Signature | + +---------+ + + + | Uric Acid | 9.7 (A) | 2.3 - 6.6 | EXTERNAL [...] + +---------+ + + Renal Function Panel (03/31/2017 2:35 PM PDT) + +---------+ + + + | Component | Value | Ref Range | Performed | Pathologist | | | | | At | Signature | + +---------+ + + + | Glucose, | 120 (A) | 70 - 100 mg/dL | EXTERNAL | | | Fasting | | | LAB | | + +---------+ + + + | BUN | 13 | 6 - 23 mg/dL | EXTERNAL | | | | | | LAB | | + +---------+ + + + | Creatinine | 0.9 | 0.6 - 1.35 | EXTERNAL | | | | | mg/dL | LAB | | + +---------+ + + + | PHOSPHORUS | | mg/dL | EXTERNAL | | | | | | LAB | | + +---------+ + + + | Albumin | 3.9 | 3.5 - 5.0 | EXTERNAL | [...] + + + | Anion Gap | 17.8 | 7 - 21 mmol/L | EXTERNAL | | | | | | LAB | | + +---------+ + + + | eGFR if not | | | EXTERNAL | | | | | | LAB | | | FIJIAN | | | | | + +---------+ + + + | Phosphorus, | 3.1 | 2.5 - 5.0 | EXTERNAL | | | Inorganic | | | LAB | | + +---------+ + + + | BUN/Creatin | 14.4 | 6.0 - 28.6 | EXTERNAL | | | ine Ratio | | | LAB | | + +---------+ + + + | Calcium | 9.8 | 8.4 - 10.2 | EXTERNAL | | | | | mg/dL | LAB | | + +---------+ + + + | Estimated | 69 | mg/dL | EXTERNAL | | | [...]
--- OUTSIDE RECORDS SUMMARY | ~2019-06-25 | XMS | Encounter Summary ---
Demographics + + + | Address | [address] | | | [place] [address] | + + + | Home Phone [...] [place], [place] | | | | | [address] | | + + + + + | Ellie Vang | ECON | Unknown | | + + + + + Care Team Providers + +------+ + | Care Peanut Salter Name | Role | Phone | + [...] Rd | | | | | | [place], [place] | | | | | | [address] | | | | | | [phone] | | | | | | | | +--------+ + + + + | 08/19/ | Surgery | Surgery | Chilo, | OPEN VENTRAL HERNIA | | 2019 | | | MD Jorje [address] | REPAIR WITH | | | | | [address] | BIOLOGICAL MESH | | | | | [place], [place] | | | | | | [address] | | | | | | [phone] | | | | | | | | +--------+ + + + + | 09/15/ | Office | Cardiology | Randell Franks, | | | 2019 | Visit | | [address] | | | | | | [place], [place] | | | | | | [address] | | | | | | [phone] | | | | | | | | +--------+ + + + + documented as of this encounter Visit Diagnoses Not on filedocumented in this encounter"
--- OUTSIDE RECORDS SUMMARY | ~2019-06-25 | XMS | Encounter Summary ---
Demographics + + + | Address | [address] | | | [place] [address] | + + + | Home Phone [...] [place], [place] | | | | | [address] | | + + + + + | Ellie Vang | ECON | Unknown | | + + + + + Care Team Providers + +------+ + | Care Multiple Coil Winder Name | Role | Phone | [...] | | | | | (HCC) | [place], [place] | Mailcode: | | | | | Procedures | [address] | [address] [facility] | | | | | CT ABDOMEN & | Phone: | Hospital | | | | | PELVIS WWO | | [place], [place] | | | | | IV CONTRAST | Fax: | [address] | | | | | [place] [address] | [phone] | Phone: | | | | | ABDOMEN&PELV | | [phone] | | | | | IS | | Fax: | | | | | W/CONTRAST | | [phone] | | | | | See chart [...] | 2015 | Encounter | Lab at [facility] [address] | | | | | | [address] Mailcode: | | | | | | [facility] | | | | | | Health and Healing, | | | | | | [place] [address], [facility] | | | | | | Floor [place], [place] | | | | | | [address] | | | | | | [phone] | | | +--------+ + + + [...] by Faculty Other at 5 9:08 AM PDTYamil, Faculty - 10/12/2014 9:08 AM PDT documented [...] Rd | | | | | | [place], [place] | | | | | | [address] | | | | | | [phone] | | | | | | | | +--------+ + + + + | 08/19/ | Surgery | Surgery | Chilo, | OPEN VENTRAL HERNIA | | 2019 | | | MD Jorje [address] | REPAIR WITH | | | | | [address] | BIOLOGICAL MESH | | | | | [place], [place] | | | | | | [address] | | | | | | [phone] | | | | | | | | +--------+ + + + + | 09/15/ | Office | Cardiology | Randell Franks, | | | 2019 | Visit | | MD [address] | | | | | | [address] [place], [place] | | | | | | [address] | | | | | | [phone] | | | | | | | [...] | 0.6 - 1.1 mg/dL | NKECHI VALDEZ | | | POC | | | [...] [facility] | [place] [address] | | | OF CARE TESTS | | | | + + + + + documented in this encounter Visit Diagnoses + + | Diagnosis | + + | Abdominal pain | + + | Morbid obesity (HCC) Morbid obesity | + + documented in this encounter"
--- OUTSIDE RECORDS SUMMARY | ~2019-06-25 | XMS | Encounter Summary ---
Demographics + + + | Address | [address] | | | [place] [address] | + + + | Home Phone [...] + | Katalina Padilla | ECON | [address] | | | | | [place], [place] | | | | | [address] | | + + + + + | Ellie Vang | ECON | Unknown | | + + + + + Care Team Providers + +------+ + | Care Line Haul Truck Driver Name | Role | Phone | [...] | Event | Medicine Clinic at | [place], [place] | | | | | [facility] | [address] | | | | | [address] | | | | | | Mail Code: OC8PM | | | | | | [facility] | | | | | | and Healing, | | | | | | [address] | | | | | | [place], [place] | | | | | | [address] | | | | | | [phone] | | | +--------+ + + + [...] Rd | | | | | | [place], [place] | | | | | | [address] | | | | | | [phone] | | | | | | | | +--------+ + + + + | 08/19/ | Surgery | Surgery | Chilo, | OPEN VENTRAL HERNIA | | 2019 | | | MD Jorje [address] | REPAIR WITH | | | | | [address] | BIOLOGICAL MESH | | | | | [place] | | | | | | [address] | | | | | | [phone] | | | | | | | | +--------+ + + + + | 09/15/ | Office | Cardiology | Randell Franks, | | | 2019 | Visit | | [address] | | | | | | [place] | | | | | | [address] | | | | | | [phone] | | | | | | | | +--------+ + + + + documented as of this encounter Visit Diagnoses Not on filedocumented in this encounter"
--- OUTSIDE RECORDS SUMMARY | ~2019-06-25 | XMS | Encounter Summary ---
Demographics + + + | Address | [address] | | | [place] [address] | + + + | Home Phone [...] [place], [place] | | | | | [address] | | + + + + + | Ellie Vang | ECON | Unknown | | + + + + + Care Team Providers + +------+ + | Care Staffing Executive Name | Role | Phone | + +------+ + | Fadi Goodrich DO | PCP | | + +------+ + Encounter Details +--------+ + + + + | Date | Type | Department | Care Team | Description | +--------+ + + + + | 02/13/ | Telephone | Cardiology | Randell Franks, | | | 2016 | | Preventive at [facility] | MD [address] | | | | | [address] | [place], [place] | | | | | Mailcode: [facility] | [address] | | | | | [facility] | [phone] | | | | | and Healing, | | | | | | [address] | | | | | | [place], [place] | | | | | | [address] | | | | | | [phone] | | | +--------+ + + + [...] | | | | | | [place], [place] | | | | | | [address] | | | | | | [phone] | | | | | | | | +--------+ + + + + | 08/19/ | Surgery | Surgery | Chilo, | OPEN VENTRAL HERNIA | | 2019 | | | MD Jorje [address] | REPAIR WITH | | | | | [address] | BIOLOGICAL MESH | | | | | [place], [place] | | | | | | [address] | | | | | | [phone] | | | | | | | | +--------+ + + + + | 09/15/ | Office | Cardiology | Randell Franks, | | | 2019 | Visit | | MD [address] | | | | | | [place], [place] | | | | | | [address] | | | | | | [phone] | | | | | | | | +--------+ + + + + documented as of this encounter Visit Diagnoses Not on filedocumented in this encounter"
--- OUTSIDE RECORDS SUMMARY | ~2019-06-25 | XMS | Encounter Summary ---
Demographics + + + | Address | [address] | | | [place] [address] | + + + | Home Phone | | + + + | Preferred Language | Unknown | + + + | Marital Status | | + + + | Judaism Affiliation | Unknown | + + + | Race | Unknown | + + + | Ethnic Group | Unknown | + + + Author + + + | Author | [facility] | | | and Jeffana | + + + | Organization | [facility] | | | and [...] Team Providers + +------+ + | Care Passenger Screener Name | Role | Phone | + +------+ + PCP | Unavailable | + +------+ + Encounter Details +--------+ + + + + | Date | Type | Department | Care Team | Description | +--------+ + + + + | 06/19/ | Hospital | [facility] | Fadi Goodrich, | | | 2002 | Encounter | CONVERSION [address] [place] [address] [address] [place] | | | | | [address] | [address] | | | | | [place], [place] | [place] [id number] | | | | | [address] | [phone] | | | | | [phone] | | | +--------+ + + + [...] Not on filedocumented as of this encounter Visit Diagnoses Not on filedocumented in this encounter"
--- OUTSIDE RECORDS SUMMARY | ~2019-06-25 | XMS | Encounter Summary ---
Demographics + + + | Address | [address] | | | [place] [address] | + + + | Home Phone | | + + + | Preferred Language | Unknown | + + + | Marital Status | | + + + | Moravian Affiliation | Unknown | + + + | Race | Unknown | + + + | Ethnic Group | Unknown | + + + Author + + + | Author | [facility] | | | and Jeffana | + + + | Organization | [facility] | | | and [...] Team Providers + +------+ + | Care Foreign Language Interpreter Name | Role | Phone | + +------+ + PCP | Unavailable | + +------+ + Encounter Details +--------+ + + + + | Date | Type | Department | Care Team | Description | +--------+ + + + + | 10/14/ | Orders Only | [facility] | Conversion | | | 2016 | | NEPRHOLOGY [place] | Transaction, | | | | | [address] | Provider Unknown | | | | | [address] [place], [place] | | | | | | [address] | (Fax) | | | | | [phone] | | | +--------+ + + + [...] + +--------+ + + + | HEMOGLOBIN AND | Routin | 10/14/2016 | | Results for this | | HEMATOCRIT | e | 1:05 PM | | procedure are in the | | | | PDT | | results section. | + +--------+ + + + | BASIC METABOLIC | Routin | 10/14/2016 | | Results for this | | PANEL | e | 1:05 PM | | procedure are in the | | | | PDT | | results section. | + +--------+ + + + documented in this encounter Results Hemoglobin and Hematocrit (10/14/2016 1:05 PM PDT) + +-------+ + + + | Component | Value | Ref Range | Performed | Pathologist | | | | | At | Signature | + +-------+ + + + | Hgb | 13.7 | 12.0 - 16.0 | EXTERNAL | | | | | g/dL | LAB | | + +-------+ + + + | Hematocrit, | 42.4 | 35 - 45 % | EXTERNAL [...] + +---------+ + + Basic Metabolic Panel (10/14/2016 1:05 PM PDT) + +---------+ + + + | Component | Value | Ref Range | Performed | Pathologist | | | | | At | Signature | + +---------+ + + + | Glucose, | 128 (A) | 70 - 100 mg/dL | EXTERNAL | | | Fasting | | | LAB | | + +---------+ + + + | BUN | 14 | 6 - 23 mg/dL | EXTERNAL | | | | | | LAB | | + +---------+ + + + | Creatinine | 0.74 | 0.60 - 1.35 | EXTERNAL | | | | | mg/dL | LAB | | + +---------+ + + + | BUN/Creatin | 18.9 | 6.0 - 28.6 | EXTERNAL | | | ine Ratio | | | LAB | | + +---------+ + + + | Calcium | 9.2 | 8.4 - 10.2 | EXTERNAL | | | | | mg/dL | LAB | | + +---------+ + + + | Na | 140 | 132 - 143 | EXTERNAL | | | | | mmol/L | LAB | | + +---------+ + + + | K | 3.5 (A) | 3.6 - 5.1 | EXTERNAL | | | | | mmol/L | LAB | | + +---------+ + + + | Cl | 105 | 95 - 112 mmol/L | EXTERNAL | | | | | | LAB | | + +---------+ + + + | CO2 | 20 | 19 - 31 mmol/L | EXTERNAL | | | | | | LAB | | + +---------+ + + + | Anion Gap | 18.5 | 7 - 21 mmol/L | EXTERNAL | | | | | | LAB | | + +---------+ + + + | Estimated | 87 | mg/dL | EXTERNAL | | | [...]
--- OUTSIDE RECORDS SUMMARY | ~2019-06-25 | XMS | Encounter Summary ---
Demographics + + + | Address | [address] | | | [place] [address] | + + + | Home Phone | | + + + | Preferred Language | Unknown | + + + | Marital Status | | + + + | Confucianist Affiliation | Unknown | + + + | Race | Unknown | + + + | Ethnic Group | Unknown | + + + Author + + + | Author | [facility] | | | and Jeffana | + + + | Organization | [facility] | | | and [...] Team Providers + +------+ + | Care Insurance Underwriting Assistant Name | Role | Phone | + +------+ + PCP | Unavailable | + +------+ + Encounter Details +--------+ + + + + | Date | Type | Department | Care Team | Description | +--------+ + + + + | 10/20/ | Orders Only | [facility] | Dharmesh Escobar, | | | 2017 | | NEPHROLOGY [place] | [address] | | | | | [address] | [address] | | | | | [address] [place], [place] | [place] | | | | | [address] | [address] | | | | | [phone] | [phone] | | | | | | | [...] + | URINALYSIS WITH | Routin | 10/20/2016 | | Results for this | | MICROSCOPIC IF | e | 12:00 AM | | procedure are in the | | INDICATED | | PDT | | results section. | + +--------+ + + + | URIC ACID | Routin | 10/20/2016 | | Results for this | | | e | 12:00 AM | | procedure are in the | | | | PDT | | results section. | + +--------+ + + + | MAGNESIUM | Routin | 10/20/2016 | | Results for this | | | e | 12:00 AM | | procedure are in the | | | | PDT | | results section. | + +--------+ + + + documented in this encounter Results Urinalysis with Microscopic if Indicated (10/20/2016 12:00 AM PDT) + + + [...] + + + | Spec Grav, | 1.011 | 1.005 - 1.030 | EXTERNAL | [...] + + + | pH, Urine | 7 | 5 - 9 | EXTERNAL | [...] | + +---------+ + + Uric Acid (10/20/2016 12:00 AM PDT) + +---------+ + + [...] | | + +---------+ + + Magnesium (10/20/2016 12:00 AM PDT) + +-------+ + + [...]
--- OUTSIDE RECORDS SUMMARY | ~2019-06-25 | XMS | Encounter Summary ---
Demographics + + + | Address | [address] | | | [place] [address] | + + + | Home Phone [...] + | Katalina Padilla | ECON | [address] | | | | | [place], [place] | | | | | [address] | | + + + + + | Ellie Vang | ECON | Unknown | | + + + + + Care Team Providers + +------+ + | Care Jewel Hole Rough Opener Name | Role | Phone | + +------+ + | Kenyatta Cardenas MD | PCP | | + +------+ + Reason for Referral Consultation (Routine) + +--------+ + + + + | Status | Reason | Specialty | Diagnoses / | Referred By | Referred To | | | | | Procedures | Contact | Contact | + +--------+ + + + + | Pending | | Surgery | Diagnoses | Tiffany, | General | | Review | | | Ventral | Keren Chang, | Surg [facility] | | | | | hernia | AGACNP [address] | [address] | | | | | without | [address] | Ave | | | | | obstruction | [place], | Mailcode: | | | | | or gangrene | [place] | Center for | | | | | Abdominal | [address] | Health and | | | | | pain, | Phone: | Healing, | | | | | unspecified | | Building [address] | | | | | abdominal | Fax: | [place], [place] | | | | | location | [phone] | [address] | | | | | Procedures | | Phone: | | | | | CONSULT TO | | [phone] | | | | | SURGERY - | | Fax: | | | | | GENERAL | | [phone] | + +--------+ + + + + Encounter Details +--------+ + + + + | Date | Type | Department | Care Team | Description | +--------+ + + + + | 03/15/ | Telephone | Digestive Health | Keren Allen, | | | 2019 | | Center at [facility] [address] | AGACNP [address] | | | | | [address] | Ave [place], [place] | | | | | Mailcode: [place] | [address] | | | | | for Health and | | | | | | [facility], [facility] [address] | | | | | | [facility] [place] | | | | | | [address] | | | | | | | [...] Rd | | | | | | [facility] [place] | | | | | | [address] | | | | | | [phone] | | | | | | | | +--------+ + + + + | 08/19/ | Surgery | Surgery | Chilo, | OPEN VENTRAL HERNIA | | 2019 | | | MD [address] | REPAIR WITH | | | | | [address] | BIOLOGICAL MESH | | | | | [facility] [place] | | | | | | [address] | | | | | | [phone] | | | | | | | | +--------+ + + + + | 09/15/ | Office | Cardiology | Randell Franks, | | | 2019 | Visit | | [address] | | | | | | [place], [place] | | | | | | [address] | | | | | | [phone] | | | | | | | | +--------+ + + + + documented as of this encounter Visit Diagnoses + + | Diagnosis | + + | Ventral hernia without obstruction or gangrene - Primary Ventral hernia, unspecified, | | without mention of obstruction or gangrene | + + | Abdominal pain, unspecified abdominal location | + + documented in this encounter"
--- OUTSIDE RECORDS SUMMARY | ~2019-06-25 | XMS | Encounter Summary ---
Demographics + + + | Address | [address] | | | [place] [address] | + + + | Home Phone [...] [place], [place] | | | | | [address] | | + + + + + | Ellie Vang | ECON | Unknown | | + + + + + Care Team Providers + +------+ + | Care Office Assistant Name | Role | Phone | + +------+ + | Fadi Goodrich DO | PCP | | + +------+ + Encounter Details +--------+ + + + + | Date | Type | Department | Care Team | Description | +--------+ + + + + | 12/31/ | Abstract | Digestive Health | Hernandez Brina, | | | 2012 | | Center at [facility] [address] | MD [address] | | | | | [address] | [facility] | | | | | Mailcode: Center | [place], [place] | | | | | [facility] and | [address] | | | | | [facility], [facility] 2 | [phone] | | | | | [place], [place] | | | | | | [address] | | | | | | [phone] | | | +--------+ + + + [...] Rd | | | | | | [place], [place] | | | | | | [address] | | | | | | [phone] | | | | | | | | +--------+ + + + + | 08/19/ | Surgery | Surgery | Chilo, | OPEN VENTRAL HERNIA | | 2019 | | | MD Jorje [address] | REPAIR WITH | | | | | [address] | BIOLOGICAL MESH | | | | | [facility] [place] | | | | | | [address] | | | | | | [phone] | | | | | | | | +--------+ + + + + | 09/15/ | Office | Cardiology | Randell Franks, | | | 2019 | Visit | | [address] | | | | | | [place] [facility] [place] | | | | | | [address] | | | | | | [phone] | | | | | | | | +--------+ + + + + documented as of this encounter Visit Diagnoses Not on filedocumented in this encounter"
--- OUTSIDE RECORDS SUMMARY | ~2019-06-25 | XMS | Encounter Summary ---
Demographics + + + | Address | [address] | | | [place] [address] | + + + | Home Phone [...] [place], [place] | | | | | [address] | | + + + + + | Ellie Vang | ECON | Unknown | | + + + + + Care Team Providers + +------+ + | Care Dice Table Person Name | Role | Phone | + [...] [address] | | | | | [facility] | [facility] | | | | | [address] | [place], [place] | | | | | Mail Code: OC8PM | [address] | | | | | [facility] | [phone] | | | | | and Healing, | | | | | | [address] | | | | | | [place], [place] | | | | | | [address] | | | | | | [phone] | | | +--------+ + + + [...] Rd | | | | | | [place] | | | | | | [address] | | | | | | [phone] | | | | | | | | +--------+ + + + + | 08/19/ | Surgery | Surgery | Chilo | OPEN VENTRAL HERNIA | | 2019 | | | MD [address] | REPAIR WITH | | | | | [address] | BIOLOGICAL MESH | | | | | [place], [place] | | | | | | [address] | | | | | | [phone] | | | | | | | | +--------+ + + + + | 09/15/ | Office | Cardiology | Randell Franks, | | | 2020 | Visit | | MD [address] | | | | | | [place], [place] | | | | | | [address] | | | | | | [phone] | | | | | | | | +--------+ + + + + documented as of this encounter Visit Diagnoses Not on filedocumented in this encounter"
--- OUTSIDE RECORDS SUMMARY | ~2019-06-25 | XMS | Encounter Summary ---
Demographics + + + | Address | [address] | | | [place] [address] | + + + | Home Phone [...] + | Katalina Padilla | ECON | [address] | | | | | [place], [place] | | | | | [address] | | + + + + + | Ellie Vang | ECON | Unknown | | + + + + + Care Team Providers + +------+ + | Care Gasoline Finisher Name | Role | Phone | [...] 2017 | | Center at [facility] [address] | [facility] [address] | | | | | [address] | Ave [place], [place] | | | | | Mailcode: [place] | [address] | | | | | for Health and | [phone] | | | | | [facility] [address] | | | | | | [place], [place] | | | | | | [address] | | | | | | | [address] | | | | | | [place], [place] | | | | | | [address] | | | | | | [phone] | | | | | | | | +--------+ + + + + | 08/19/ | Surgery | Surgery | Chilo | OPEN VENTRAL HERNIA | | 2019 | | | MD [address] | REPAIR WITH | | | | | [address] | BIOLOGICAL MESH | | | | | [place], [place] | | | | | | [address] | | | | | | [phone] | | | | | | | | +--------+ + + + + | 09/15/ | Office | Cardiology | Randell Franks, | | | 2019 | Visit | | MD [address] | | | | | | [place] | | | | | | [address] | | | | | | [phone] | | | | | | | | +--------+ + + + + documented as of this encounter Visit Diagnoses Not on filedocumented in this encounter"
--- OUTSIDE RECORDS SUMMARY | ~2019-06-25 | XMS | Encounter Summary ---
Demographics + + + | Address | [address] | | | [place] [address] | + + + | Home Phone [...] + | Katalina Padilla | ECON | [address] | | | | | [place], [place] | | | | | [address] | | + + + + + | Ellie Vang | ECON | Unknown | | + + + + + Care Team Providers + +------+ + | Care Console Operator Name | Role | Phone | + +------+ + | Kenyatta Cardenas MD | PCP | | + +------+ + Encounter Details +--------+ + + + + | Date | Type | Department | Care Team | Description | +--------+ + + + + | 05/28/ | Phillip | [facility] at [facility] | Lab, Gi Procedure | | | 2018 | on | [address] | | | | | | [place] Flannery Mailcode: | | | | | | [facility] | | | | | | [facility], | | | | | | [facility] | | | | | | [place], [place] | | | | | | [address] | | | | | | [phone] | | | +--------+ + + + [...] Rd | | | | | | [facility] [place] | | | | | | [address] | | | | | | [phone] | | | | | | | | +--------+ + + + + | 08/19/ | Surgery | Surgery | Chilo, | OPEN VENTRAL HERNIA | | 2019 | | | MD [address] | REPAIR WITH | | | | | [address] | BIOLOGICAL MESH | | | | | [place], [place] | | | | | | [address] | | | | | | [phone] | | | | | | | | +--------+ + + + + | 09/15/ | Office | Cardiology | Randell Franks, | | | 2020 | Visit | | [address] | | | | | | [place], [place] | | | | | | [address] | | | | | | [phone] | | | | | | | | +--------+ + + + + documented as of this encounter Visit Diagnoses Not on filedocumented in this encounter"
--- OUTSIDE RECORDS SUMMARY | ~2019-06-25 | XMS | Encounter Summary ---
Demographics + + + | Address | [address] | | | [place] [address] | + + + | Home Phone [...] [place], [place] | | | | | [address] | | + + + + + | Ellie Vang | ECON | Unknown | | + + + + + Care Team Providers + +------+ + | Care Business Solutions Director Name | Role | Phone | [...] | | | 2017 | Event | [facility] | MD Jodie,PhD [address] | | | | | Admitting Desk | [address] | | | | | Located on the 9 | [facility] [place] | | | | | floor [address] | [address] | | | | | [address] | [phone] | | | | | [place], [place] | | | | | | [address] | Jason Balbuena | | | | | | MD Twin [address] | | | | | | [address] | | | | | | [place], [place] | | | | | | [address] | | | | | | [phone] | | | | | | | [...] [address] | | | | | | [place] | | | | | | [address] | | | | | | [phone] | | | | | | | | +--------+ + + + + | 08/19/ | Surgery | Surgery | Chilo | OPEN VENTRAL HERNIA | | 2019 | | | MD [address] | REPAIR WITH | | | | | [address] | BIOLOGICAL MESH | | | | | [place], [place] | | | | | | [address] | | | | | | [phone] | | | | | | | | +--------+ + + + + | 09/15/ | Office | Cardiology | Randell Franks, | | | 2020 | Visit | | [address] | | | | | | [place], [place] | | | | | | [address] | | | | | | [phone] | | | | | | | [...]
--- OUTSIDE RECORDS SUMMARY | ~2019-06-25 | XMS | Encounter Summary ---
Demographics + + + | Address | [address] | | | [place] [address] | + + + | Home Phone [...] + | Katalina Padilla | ECON | [address] | | | | | [place], [place] | | | | | [address] | | + + + + + | Ellie Vang | ECON | Unknown | | + + + + + Care Team Providers + +------+ + | Care Donor Support Technician Name | Role | Phone | [...] + + | 11/05/ | Hospital | [facility] 14C [address] | Joseph An | | | 2016 - | Encounter | [address] | MD Birgit [address] [facility] | | | | | 14C [facility] | [address] | | | 11/20/ | | [place], [place] | [place], [place] | | | 2016 | | [address] | [address] | | | | | [phone] | [phone] | | | | | | | | | | | | Ana, | | | | | | MD Briana [address] | | | | | | [address] | | | | | | Rd [place], [place] | | | | | | [address] | | | | | | [phone] | | | | | | | | | | | | Carmelina Tucker, | | | | | | JEFFREY-Aimee [address] | | | | | | [address] | | | | | | [place], [place] | | | | | | [address] | | | | | | [phone] | | | | | | | | | | | | Charley Lacey MD | | | | | | Jose Scott MD | | | | | | [address] | | | | | | [address] | | | | | | [place], [place] | | | | | | [address] | | | | | | [phone] | | | | | | | | | | | | Mannie Larkin MD | | | | | | [address] | | | | | | [address] [place], | | | | | | [place] [address] | | | | | | [phone] | | | | | | | | | | | | Tyrone Adrian MD | | | | | | [address] | | | | | | [address] [place], | | | | | | [place] [address] | | | | | | [phone] | | | | | | | [...] did want her to follow up with telephone order dispatcher in [place]. She should continue working towards bariatric surgery wh ich will ultimately put less stress on her heart. -Continue torsemide 80mg BID -Increase potassium supplementation to KCl 40mg BID -Daily weights and strict 2g Na 2L fluid restricted diet -Close followup with Dr. Goodrich (appt on 11/25 at 11AM) -Needs followup with cardiology in [place] #Left lower extremity DVT #Presumed PE Asymmetric left lower extremity pain and swelling was suspicious for DVT and confirmed with duplex ultrasound. Did not pursue CTA as it was decided that it would not exchange trouble shooter . Started anticoagulation bridge with heparin gtt [...] mouth once daily. , Historical Med CALCIUM [id number] ORAL Take 2 tablets by mouth two [...] Cyndi Meier Cardiology Congestive Heart Failure at [facility] [phone] Cardiology Additional Instructions/Orders: Diet Diabetic (Consistent [...] Good Yosef Segovia MD PGY-1 Internal Medicine [id number] INPATIENT FACULTY PROGRESS NOTE - GM 1 [...] (HCC) 15) Candidal intertrigo Tyrone Adrian MD [facility] 14C eeg tech Division of Hospital Medicine Department of Medicine [address] [place] [address] [facility] DEPARTMENT: Hosp- [id number] Place of Service: Date of Service: 11/21/2015 CSN: [id number] Modifiers:GC Resident Involved: Yes Suggested CPT: 84038 Discharge Management < 30 minute documented in this encou nter Medications at Time of Discharge + + + +---------+--------+ + | Medication | Sig | Dispensed | Refills | Start | End Date | | | | | | Date | | + + + +---------+--------+ + | CALCIUM | Take 2 tablets by | | 0 | | | | [id number] | mouth two times | | | [...] (HCC) 15) Candidal intertrigo Tyrone Adrian MD [facility] 14C eeg tech Division of Hospital Medicine Department of Medicine Formerly [facility] & [address] [place] [address] [facility] DEPARTMENT: Hosp- [id number] Place of Service: [facility] Date of Service: 11/20/2015 CSN: [id number] Modifiers:GC Resident Involved: Yes Suggested CPT: 58252 Subsequent Visit Exp Prob Foc/Mod Complexity 25 min Colleen Tello - 016 6:49 AM PDT PHYSICIAN PLUCK SEPARATOR STUDENT PROGRESS NOTE FOR EDUCATIONAL PURPOSES ONLY [...] of ovarian cysts or menses related. Contact SALES RECRUITMENT SPECIALIST if TV-US i s ordered. - TV-US [...] - topiramate 200mg po bid JEFFREY Gee-S2 [facility] PA Student Feeding: <2L fluid, Diabetic diet, >2g na Analgesia: APAP, gabapentin, hydrocodone Thromboembolic prophylaxis: Heparin/warfarin Glycemic control: moderate ISS Mobility: Encourage walking and movement Discharge: Expect hospital stay another 2-3 days with PCP FU (Dr. Goodrich) on Saturday 11/25 @ 1 1 am. - Referral to Interventional Cardiologist Code status: FULL Associated attestation - Juliette Yosef Pryor - 11/20/2015 7:50 PM PDTI [facility] t note by PA student Dara and [...] PCP Yosef Segovia MD PGY-1 Internal Medicine [id number] Tyrone Adrian MD - 11/19/2015 11:51 AM [...] if the PO works) Tyrone Adrian MD [facility] 14C eeg tech Division of Hospital Medicine Department of Medicine Formerly [facility] & [address] [place] [address] [facility] DEPARTMENT: Hosp- [id number] Place of Service: Date of Service: 11/19/2015 CSN: [id number] Modifiers:GC Resident Involved: Yes Suggested CPT: 15161 Subsequent Visit Exp Prob Foc/Mod Complexity 25 min olleen Diamond - 016 6:24 AM PDT PHYSICIAN PLUCK SEPARATOR STUDENT PROGRESS NOTE FOR EDUCATIONAL PURPOSES ONLY [...] of ovarian cysts or menses related. Contact SALES RECRUITMENT SPECIALIST if TV-US i s ordered. - TV-US [...] - topiramate 200mg po bid JEFFREY Gee-S2 [facility] PA Student Feeding: <2L fluid, Diabetic diet, [...] can. Yosef Segovia MD PGY-1 Internal Medicine [id number] Tyrone Adrian MD - 11/18/2015 2:01 PM [...] (HCC) 15) Candidal intertrigo Tyrone Adrian MD [facility] 14C eeg tech Division of Hospital Medicine Department of Medicine Formerly [facility] & [facility] [address] [place] [address] [facility] DEPARTMENT: Hosp- [id number] Place of Service: Date of Service: 11/18/2015 CSN: [id number] Modifiers:GC Resident Involved: Yes Suggested CPT: 19168 Subsequent Visit Exp Prob Foc/Mod Complexity 25 [...] plan. Yosef Segovia MD PGY-1 Internal Medicine [id number] signed by Yosef Segovia at 11/18/2015 11:52 [...] (HCC) 15) Candidal intertrigo Tyrone Adrian MD [facility] 14C eeg tech Division of Hospital Medicine Department of Medicine Formerly [facility] & [facility] [place] [address] [place] [address] [facility] DEPARTMENT: Hosp- [id number] Place of Service: - Date of Service: 11/17/2015 CSN: [id number] Modifiers:GC Resident Involved: Yes Suggested CPT: 85261 Subsequent Visit Exp Prob Foc/Mod Complexity 25 min lowersColleen - 016 6:40 AM PDT PHYSICIAN PLUCK SEPARATOR STUDENT PROGRESS NOTE FOR EDUCATIONAL PURPOSES ONLY [...] - topiramate 200mg po bid JEFFREY Gee-S2 [facility] PA Student Feeding: <2L fluid, [...] can Yosef Segovia MD PGY-1 Internal Medicine [id number] Tyrone Adrian MD - 11/16/2015 4:59 PM [...] (HCC) 15) Candidal intertrigo Tyrone Adrian MD [facility] 14C eeg tech Division of Hospital Medicine Department of Medicine Formerly [facility] & [address] [place] [address] [facility] DEPARTMENT: Hosp- [id number] Place of Service: Date of Service: 11/16/2015 CSN: [id number] Modifiers:GC Resident Involved: Yes Suggested CPT: 26795 Subsequent Visit Exp Prob Foc/Mod Complexity 25 min olleen Diamond - 016 6:43 AM PDT PHYSICIAN PLUCK SEPARATOR STUDENT PROGRESS NOTE FOR EDUCATIONAL PURPOSES ONLY [...] - topiramate 200mg po bid JEFFREY Gee-S2 [facility] PA Student Feeding: <2L fluid, [...] assistance of Grisel Pearl. Patient lives i [facility] which is quite a distance to travel to and from [place]. We would ideally arran ge cardiac follow [...] (HCC) 15) Candidal intertrigo Tyrone Adrian MD [facility] 14C eeg tech Division of Hospital Medicine Department of Medicine Formerly [facility] & [facility] [address] [place] [address] [facility] DEPARTMENT: Hosp- [id number] Place of Service: [facility] [id number] Date of Service: 11/15/2015 CSN: [id number] Modifiers:GC Resident Involved: Yes Suggested CPT: 80185 Subsequent Visit Detailed/High complexity 35 min lColleen goff - 016 6:33 AM PDT PHYSICIAN PLUCK SEPARATOR STUDENT PROGRESS NOTE FOR EDUCATIONAL PURPOSES ONLY INPATIENT PROGRESS NOTE PATIENT INFORMATION Patient Name: Elzbieta Cristina Date of : 1975 Date of Admission: 11/06/2015 PCP: Fadi Goodrich DO Room/Bed: [facility]/08/08 Attending Provider: Tyrone Adrian MD Encounter Information [...] last 8 days Intake 9571.5 ml Output 47401 ml Net since Admission -92458.5 ml -25.938 L = 57.0636 lbs Constitutional: [...] may consider US # Intertriginous rash Likely surehs due to warm, moist region. Will treat [...] - topiramate 200mg po bid JEFFREY Gee-S2 [facility] PA Student Feeding: <2L fluid, Diabetic diet, >2g na Analgesia: APAP, gabapentin, hydrocodone Thromboembolic prophylaxis: Heparin/warfarin Glycemic control: moderate ISS Mobility: Encourage walking and movement Discharge: Expect hospital stay another 3-5 days with diuresis until more euvolemic and R h eart cath can be completed. Code status: FULL Associated attestation - Aiken, Yosef Pryor - 11/15/2015 2:59 PM PDTI [facility] Dara and [...] can Yosef Segovia MD PGY-1 Internal Medicine [id number] Tyrone Adrian MD - 11/14/2015 4:16 PM [...] (HCC) 15) Candidal intertrigo Tyrone Adrian MD [facility] 14C eeg tech Division of Hospital Medicine Department of Medicine [address] [place] [address] [facility] DEPARTMENT: Hosp- [id number] Place of Service: Date of Service: 11/14/2015 CSN: [id number] Modifiers:GC Resident Involved: Yes Suggested CPT: 62751 Subsequent Visit Exp Prob Foc/Mod Complexity 25 min olleen Diamond - 016 6:42 AM PDT PHYSICIAN PLUCK SEPARATOR STUDENT PROGRESS NOTE FOR EDUCATIONAL PURPOSES ONLY [...] - topiramate 200mg po bid JEFFREY Gee-S2 [facility] PA Student Feeding: <2L fluid, [...] outpatient Yosef Segovia MD PGY-1 Internal Medicine [id number] Tyrone Adrian MD - 11/13/2015 4:06 PM PDTINPATIENT FACULTY PROGRESS NOTE - GM 1 Author; Tyrone Adrian MD Attending Physician: Tyrone Adrian MD Hospital Day: 7 PCP: Fadi Goodrich DO PCP PCP Patient's Name: Elzbieta Crsitina Today's Date: 11/13/2015 I personally interviewed the [...] (HCC) 15) Candidal intertrigo Tyrone Adrian MD [facility] 14C eeg tech Division of Hospital Medicine Department of Medicine Formerly [facility] & [place] [address] [place] [address] [facility] DEPARTMENT: Hosp- [id number] Place of Service: [facility] Date of Service: 11/13/2015 CSN: [id number] Modifiers:GC Resident Involved: Yes Suggested CPT: 62189 Subsequent Visit Detailed/High complexity 35 min lfelixsColleen - 016 6:36 AM PDT PHYSICIAN PLUCK SEPARATOR STUDENT PROGRESS NOTE FOR EDUCATIONAL PURPOSES ONLY [...] - topiramate 200mg po bid JEFFREY Gee-S2 [facility] PA Student Feeding: <2L fluid, [...] VTE. 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 [place] [address] [facility] DEPARTMENT: Hosp- [id number] Place of Service: - Date of Service: 11/12/2015 CSN: [id number] Modifiers:GC Resident Involved: Yes Suggested CPT: 20371 Subsequent Visit Detailed/High complexity 35 min lColleen goff - 016 6:31 AM PDT PHYSICIAN PLUCK SEPARATOR STUDENT PROGRESS NOTE FOR EDUCATIONAL PURPOSES ONLY INPATIENT PROGRESS NOTE PATIENT INFORMATION Patient Name: Elzbieta Cristina Date of : 1975 Date of Admission: 11/06/2015 PCP: Fadi Goodrich DO Room/Bed: [facility]/ Attending Provider: Mannie Larkin MD Encounter Information [...] - topiramate 200mg po bid JEFFREY Gee-S2 [facility] PA Student Feeding: <2L fluid, [...] disease. Yosef Segovia MD PGY-1 Internal Medicine [id number] Mannie Larkin MD - 11/11/2015 9:19 PM [...] diuresis then RHC Mannie Larkin MD Clinical [facility] Cutter, Internal Medicine Pager [phone] ristalColleen martines - 10/25 6:40 AM PDT PHYSICIAN PLUCK SEPARATOR STUDENT PROGRESS NOTE FOR EDUCATIONAL PURPOSES ONLY [...] - topiramate 200mg po bid JEFFREY Gee-S2 [facility] PA Student Feeding: <2L fluid, [...] pain Yosef Segovia MD PGY-1 Internal Medicine [id number] Maria Eugenia Leiva RCP - 11/11/2015 6:39 [...] another 5-7 days Mannie Larkin MD Clinical [facility] Cutter, Internal Medicine Pager [phone] Yosef Fang T - 7:24 AM PDT [...] plan. Yosef Segovia MD PGY-1 Internal Medicine [id number] signed by Yosef Segovia at 11/10/2015 2:50 [...] R heart cath onc e a bit veneer redrier. In terms of AMARA - does not tolerate CPAP historically. Likely CPAP will be ve ry important for her going forward. Will try overnight oximetry here to assess severity. Discharge planning:Anticipate several days in house. I spent >35 min of which >50% was spent in counseling and coordination of care. Briana Perez MD [facility] Division of Hospital Medicine Grisel [...] Maker Primary Surrogate Decision Maker Katalina kim [phone] Advanced Directives Existence of Advanced Directive Reviewed: No- Has Interest (11/09/15 1022) Advanced Directives Reviewed Comments: I gave a copy of advance directives (11/09/15 1022) KRISHNA Huertas NP [facility] 14C [address] [facility] [address] [place] [address] lfelixColleen martines - 6:41 AM PDT PHYSICIAN PLUCK SEPARATOR STUDENT PROGRESS NOTE FOR EDUCATIONAL PURPOSES ONLY [...] of acute blood loss and anemia of candy mixer ela dz and thalassemia is less likely. [...] AM Yosef Segovia MD PGY-1 Internal Medicine [id number] Briana Perez MD - 11/08/2015 2:01 PM [...] and coordination of care. Briana Perez MD [facility] Division of Hospital Medicine ara Colleen - 11/08/2015 6:26 AM PDT PHYSICIAN PLUCK SEPARATOR STUDENT PROGRESS NOTE FOR EDUCATIONAL PURPOSES ONLY [...] po bid (topamax, nerve pain) JEFFREY Gee-S2 [facility] PA Student Feeding: <2L fluid, [...] Hair Md, MSc Internal Medicine PGY2 Pager [phone] Kwadwo Freire - 11/07/2015 2:05 PM PDTTransthoracic [...] plan. Yosef Segovia MD PGY-1 Internal Medicine [id number] lfelixs Colleen - 016 8:43 AM PDT PHYSICIAN PLUCK SEPARATOR STUDENT PROGRESS NOTE FOR EDUCATIONAL PURPOSES ONLY [...] perfusion. - consider US to evaluate liver (LYEW-pxw-vjwhsogyx fatty liver dz) and look for ascites. [...] and movement Code status[facility] Plan of Treatment +--------+ + + [...] [place] | | | | | | [address] | | | | | | [phone] | | | | | | | | +--------+ + + + + | 08/19/ | Surgery | Surgery | Chilo, | OPEN VENTRAL HERNIA | | 2019 | | | MD Jorje [address] | REPAIR WITH | | | | | [address] | BIOLOGICAL MESH | | | | | [facility] [place] | | | | | | [address] | | | | | | [phone] | | | | | | | | +--------+ + + + + | 09/15/ | Office | Cardiology | Randell Franks, | | | 2019 | Visit | | [address] | | | | | | [place], [place] | | | | | | [address] | | | | | | [phone] | | | | | | | [...] AMES | [address] | [place], [place] | | | L[place]Z POINT OF CARE | [facility] | [address] | | | TESTS | | | [...] | + + + + + | [facility] | [address] | [place] [address] | | | SERVICES, CORE | PARK [...] | + + + + + | [facility] | [address] | [place] [address] | | | SERVICES, CORE | LESLY [...] | | | LABORATORY | | | KENYAN | | | SERVICES, | | | [...] | + + + + + | [facility] | [address] | [place] [address] | | | SERVICES, CORE | PARK [...] [facility] | [address] | [place], [place] | | | JUSTINE DAWN OF CARE | [address] | [address] | | | TESTS | | | [...] [facility] | [address] | [place], [place] | | | [facility]WN OF CARE | [facility] | [address] | | | TESTS | | | [...] AMES | [address] | [place], [place] | | | [facility] OF CARE | [address] | [address] | | | TESTS | | | [...] [facility] | [address] | [place], [place] | | | [place] POINT OF CARE | [address] | [address] | | | TESTS | | | [...] - [facility] | [address] | [place], [place] | | | [place] POINT OF CARE | [address] | [address] | | | TESTS | | | [...] [facility] | [address] | [place] [address] | | | SERVICES, CORE | PARK [...] | + + + + + | [facility] | [address] | [place] [address] | | | CLAIRE, LYDIA | LESLY [...] [facility] | [address] | [place] [address] | | | SERVICES, CORE | PARK [...] | | | LABORATORY | | | KENYAN | | | SERVICES, | | | [...] the MDRD equation recommended by the | [facility] | | National Kidney Disease [...] + + + + | [facility] | [address] [facility] | [place] [address] | | | LYDIA RANGEL | LESLY [...] [facility] | [address] | [place], [place] | | | [place] POINT OF CARE | [address] | [address] | | | TESTS | | | [...] AMES | [address] | [place], [place] | | | [place] POINT OF CARE | [address] | [address] | | | TESTS | | | [...] + + + + | [facility] | [address] | [place] [address] | | | SERVICES, CORE | LESLY [...] [facility] | [address] | [place] [address] | | | SERVICES, CORE | PARK [...] | | | LABORATORY | | | KENYAN | | | SERVICES, | | | [...] | + + + + + | [facility] | [address] | [place] [address] | | | CLAIRE, LYDIA | LESLY [...] [facility] | [address] | [place], [place] | | | JUST[facility] OF [facility] | [address] | [address] | | | TESTS | | | [...] [facility] | [address] | [place], [place] | | | JUSTINE DAWN OF JAKY | [facility] | [address] | | | TESTS | | | [...] AMES | [address] | [place], [place] | | | [place] POINT OF CARE | [address] | [address] | | | TESTS | | | [...] [facility] | [address] | [place], [place] | | | L[place] [facility]ILL[facility] OF [facility] | [address] | [address] | | | TESTS | | | [...] | + + + + + | [facility] | [address] [facility] | [place] [address] | | | SERVICES, CORE | LESLY [...] [facility] | [address] | [place] [address] | | | SERVICES, CORE | LESLY [...] [facility] | [address] | [place], [place] | | | [place] POINT OF CARE | [address] | [address] | | | TESTS | | | [...] AMES | [address] | [place], [place] | | | [place] POINT OF CARE | [address] | [address] | | | TESTS | | | [...] | + + + + + | [facility] | [address] | [place] [address] | | | SERVICES, LYDIA | LESLY [...] + + + + | [facility] | [address] | [place] [address] | | | LYDIA RANGEL | LESLY [...] [facility] | [address] | [place] [address] | | | SERVICES, CORE | PARK [...] | | | LABORATORY | | | KENYAN | | | SERVICES, | | | [...] | + + + + + | [facility] | [address] [facility] | [place] [address] | | | SERVICES, CORE | PARK [...] [facility] | [address] | [place], [place] | | | JUSTINE DAWN OF JAKY | [facility] | [address] | | | TESTS | | | [...] (H) | 60 - 99 mg/dL | [facility] - | | | GLUCOSE, [...] AMES | [address] | [place], [place] | | | [place] POINT OF CARE | [address] | [address] | | | TESTS | | | [...] + + | Performing | Address | City/State/[facility] | Phone Number | | Organization | | | | + + + + + | [facility] | [address] | [place], [place] | | | JUSTINE DAWN OF JAKY | [address] | [address] | | | TESTS | | | [...] - [facility] | [address] | [place], [place] | | | JUST[facility]WN OF [facility] | [facility] | [address] | | | TESTS | | | [...] [facility] | [address] | [place] [address] | | | SERVICES, CORE | PARK [...] + + + + | [facility] | [address] | [place] [address] | | | SERVICES, CORE | PARK [...] | + + + + + | [facility] | [address] | [place] [address] | | | SERVICES, CORE | PARK [...] | | | LABORATORY | | | KENYAN | | | SERVICES, | | | [...] | + + + + + | [facility] | [address] | [place] [address] | | | SERVICES, CORE | LESLY [...] [facility] | [address] | [place] [address] | | | SERVICES, CORE | PARK [...] | + + + + + | [facility] | [address] | [place] [address] | | | SERVICES, CORE | LESLY [...] [facility] | [address] | [place], [place] | | | L[place] POINT OF CARE | [address] | [address] | | | TESTS | | | [...] (H) | 60 - 99 mg/dL | [facility] - | | | GLUCOSE, | | [...] [facility] | [address] | [place], [place] | | | JUSTINE DAWN OF CARE | [facility] | [address] | | | TESTS | | | [...] AMES | [address] | [place], [place] | | | [place] POINT OF CARE | [address] | [address] | | | TESTS | | | [...] | + + + + + | [facility] | [address] | [place] [address] | | | SERVICES, CORE | LESLY [...] - [facility] | [address] | [place], [place] | | | [place] POINT OF CARE | [address] | [address] | | | TESTS | | | [...] [facility] | [address] | [place] [address] | | | SERVICES, CORE | PARK [...] | + + + + + | [facility] | [address] | [place] [address] | | | SERVICES, CORE | LESLY [...] | | | LABORATORY | | | KENYAN | | | SERVICES, | | | [...] + + + + | [facility] | [address] | [place] [address] | | | SERVICES, CORE | PARK [...] | + + + + + | [facility] | [address] | [place] [address] | | | SERVICES, LYDIA | LESLY [...] [facility] | [address] | [place], [place] | | | JUSTINE DAWN OF CARE | [address] | [address] | | | TESTS | | | [...] + + + + | [facility] | [address] | [place] [address] | | | LYDIA RANGEL | LESLY [...] (H) | 60 - 99 mg/dL | [facility] - | | | GLUCOSE, [...] [facility] | [address] | [place], [place] | | | L[place] POINT OF CARE | [address] | [address] | | | TESTS | | | [...] | + + + + + | [facility] | [address] [facility] | [place] [address] | | | SERVICES, CORE | LESLY [...] [facility] | [address] | [place], [place] | | | [place] POINT OF CARE | [address] | [address] | | | TESTS | | | [...] - [facility] | [address] | [place], [place] | | | L[place] POINT OF CARE | [address] | [address] | | | TESTS | | | [...] [facility] | [address] | [place] [address] | | | SERVICES, CORE | LESLY [...] + + + + | [facility] | [address] | [place] [address] | | | SERVICES, CORE | PARK [...] + + + + | [facility] | [address] | [place] [address] | | | SERVICES, CORE | PARK [...] | + + + + + | [facility] | [address] | [place] [address] | | | SERVICES, CORE | LESLY [...] | | | LABORATORY | | | KENYAN | | | SERVICES, | | | [...] + + + + | [facility] | [address] | [place] [address] | | | SERVICES, CORE | LESLY [...] (H) | 60 - 99 mg/dL | [facility] - | | | GLUCOSE, | | [...] [facility] | [address] | [place], [place] | | | [place] POINT OF CARE | [address] | [address] | | | TESTS | | | [...] | + + + + + | [facility] | [address] | [place] [address] | | | SERVICES, CORE | LESLY [...] [facility] | [address] | [place] | | | JUSTINE DAWN OF CARE | [facility] [facility] | [address] | | | TESTS | | | [...] AMES | [address] | [place], [place] | | | [place]INT OF CARE | [address] | [address] | | | TESTS | | | [...] | + + + + + | [facility] | [address] | [place] [address] | | | SERVICES, LYDIA | LESLY [...] [facility] | [address] | [place], [place] | | | JUSTINE DAWN OF CARE | [facility] | [address] | | | TESTS | | | [...] [facility] | [address] | [place] [address] | | | SERVICES, CORE | PARK [...] [facility] | [address] | [place] [address] | | | SERVICES, CORE | PARK [...] | + + + + + | [facility] | [address] [facility] | [place] [address] | | | SERVICES, CORE | LESLY [...] | | | LABORATORY | | | KENYAN | | | SERVICES, | | | [...] + + + + | [facility] | [address] | [place] [address] | | | SERVICES, CORE | LESLY [...] + + | Performing | Address | City/State/[facility] | Phone Number | | Organization | | | | + + + + + | [facility] | [address] | [place], [place] | | | JUSTINE DAWN OF JAKY | [facility] | [address] | | | TESTS | | | [...] [facility] | [address] | [place], [place] | | | JUSTINE DAWN OF JAKY | [facility] | [address] | | | TESTS | | | [...] (H) | 60 - 99 mg/dL | [facility] - | | | GLUCOSE, [...] [facility] | [address] | [place], [place] | | | [place]INT OF CARE | [address] | [address] | | | TESTS | | | [...] + + | Performing | Address | City/State/[facility] | Phone Number | | Organization | | | | + + + + + | [facility] | [address] | [place], [place] | | | JUSTINE DAWN OF JAKY | [facility] | [address] | | | TESTS | | | [...] [facility] | [address] | [place] [address] | | | SERVICES, CORE | PARK [...] [facility] | [address] | [place] [address] | | | SERVICES, CORE | PARK [...] | + + + + + | [facility] | [address] | [place] [address] | | | SERVICES, CORE | PARK [...] | + + + + + | [facility] | [address] | [place] [address] | | | SERVICES, CORE | LESLY [...] [facility] | [address] | [place] [address] | | | SERVICES, CORE | PARK [...] | | | LABORATORY | | | KENYAN | | | SERVICES, | | | [...] | + + + + + | [facility] | [address] [facility] | [place] [address] | | | CLAIRE, LYDIA | LESLY [...] [facility] | [address] | [place] [address] | | | LYDIA RANGEL | LESLY [...] | | | LABORATORY | | | KENYAN | | | SERVICES, | | | [...] + + + + | [facility] | [address] | [place] [address] | | | SERVICES, LYDIA | LESLY [...] [facility] | [address] | [place], [place] | | | JUSTINE DAWN OF CARE | [facility] | [address] | | | TESTS | | | [...] (H) | 60 - 99 mg/dL | [facility] - | | | GLUCOSE, [...] [facility] | [address] | [place], [place] | | | [place] OF CARE | [address] | [address] | | | TESTS | | | [...] AMES | [address] | [place], [place] | | | JUSTINE DAWN OF JAKY | [facility] | [address] | | | TESTS | | | [...] [facility] | [address] | [place], [place] | | | [place] OF CARE | [address] | [address] | | | TESTS | | | [...] [facility] | [address] | [place] [address] | | | SERVICES, CORE | PARK [...] [facility] | [address] | [place] [address] | | | SERVICES, CORE | PARK [...] | + + + + + | [facility] | [address] | [place] [address] | | | SERVICES, CORE | LESLY [...] | | | LABORATORY | | | KENYAN | | | SERVICES, | | | [...] + + + + | [facility] | [address] | [place] [address] | | | SERVICES, CORE | LESLY [...] AMES | [address] | [place], [place] | | | JUSTINE DAWN OF JAKY | [facility] | [address] | | | TESTS | | | [...] + + + + | [facility] | [address] [facility] | [place] [address] | | | CLAIRE, LYDIA | LESLY [...] | 1.014 | 1.005 - 1.030 | [facility] | | | GRAVITY | [...] + + + + | [facility] | [address] | [place] [address] | | | SERVICES, CORE | PARK [...] [facility] | [address] | [place] [address] | | | SERVICES, CORE | PARK [...] + + + + | [facility] | [address] | [place] [address] | | | LYDIA RANGEL | LESLY [...] [facility] | [address] | [place], [place] | | | JUSTINE DAWN OF JAKY | [facility] | [address] | | | TESTS | | | [...] (H) | 60 - 99 mg/dL | [facility] - | | | GLUCOSE, [...] [facility] | [address] | [place], [place] | | | JUST[facility] DAWN OF [facility] | [address] | [address] | | | TESTS | | | [...] | + + + + + | [facility] | [address] [facility] | [place] [address] | | | SERVICES, LYDIA | LESLY [...] [facility] | [address] | [place], [place] | | | [place] OF CARE | [address] | [address] | | | TESTS | | | [...] [facility] | [address] | [place] [address] | | | SERVICES, CORE | LESLY [...] + + + + | [facility] | [address] | [place] [address] | | | SERVICES, CORE | [address] | | | + + + + + MAGNESIUM, PLASMA (11/11/2015 4:39 AM PDT) + +-------+ + + + | Component | Value | Ref Range | Performed | Pathologist | | | | | At | Signature | + +-------+ + + + | MAGNESIUM,P | 2.3 | 1.8 - 2.5 mg/dL | [facility] | | | LASMA | | | [...] | + + + + + | [facility] | [address] | [place] [address] | | | SERVICES, CORE | LESLY [...] | | | LABORATORY | | | KENYAN | | | SERVICES, | | | [...] + + + + | [facility] | [address] | [place] [address] | | | SERVICES, CORE | LESLY [...] (H) | 60 - 99 mg/dL | [facility] - | | | GLUCOSE, [...] [facility] | [address] | [place], [place] | | | [place]ARE | [address] | [address] | | | TESTS | | | [...] | + + + + + | [facility] | [address] | [place] [address] | | | LYDIA RANGEL | LESLY [...] - [facility] | [address] | [place], [place] | | | [place] OF CARE | [address] | [address] | | | TESTS | | | [...] [facility] | [address] | [place], [place] | | | [place] CARE | [address] | [address] | | | TESTS | | | [...] | + + + + + | [facility] | [address] | [place] [address] | | | LYDIA RANGEL | LESLY [...] [facility] | [address] | [place] | | | [place]ARE | [address] | [address] | | | TESTS | | | [...] [facility] | [address] | [place] [address] | | | SERVICES, CORE | PARK [...] [facility] | [address] | [place] [address] | | | SERVICES, CORE | LESLY [...] | + + + + + | [facility] | [address] | [place] [address] | | | SERVICES, CORE | LESLY [...] | | | LABORATORY | | | KENYAN | | | SERVICES, | | | [...] [facility] | [address] | [place] [address] | | | SERVICES, CORE | PARK [...] + + + + | [facility] | [address] | [place] [address] | | | SERVICES, CORE | LESLY [...] and | 50 - 200 ng/mL | [facility] | | | | Female >18 years: [...] + + + | [facility] | [address] | [place] [address] | | | LYDIA RANGEL | LESLY [...] [facility] | [address] | [place], [place] | | | JUST[facility] DAWN OF CARE | [address] | [address] | | | TESTS | | | [...] [facility] | [address] | [place], [place] | | | [place]INT OF CARE | [address] | [address] | | | TESTS | | | | + + + + + X-RAY PORTABLE CHEST PICC LINE CHECK (11/09/2015 3:12 PM PDT) + + + + + + | Component | Value | Ref Range | Performed | Pathologist | | | | | At | Signature | + + + + + + | XRAY | EXAM: WI CHEST PICC LINE | | | | [...] | | + +---------+ + + | [facility] DEPARTMENT OF | | | [...] and meds | | | Procedure location: Unit:[facility] Room: 13 Providers: PICC Nurse | [...] | pause verifies correct patient, procedure, equipment, patient support representative | | | and site/side marked as [...] | area Cephalic vein. Catheter lot number: [id number] with a length of | | | [...] [facility] | [address] | [place], [place] | | | JUSTINE DAWN OF CARE | [address] | [address] | | | TESTS | | | [...] [facility] | [address] | [place] [address] | | | SERVICES, CORE | PARK [...] - [facility] | [address] | [place], [place] | | | [place] CARE | [address] | [address] | | | TESTS | | | [...] | + + + + + | [facility] | [address] | [place] [address] | | | SERVICES, CORE | PARK [...] | + + + + + | [facility] | [address] | [place] [address] | | | SERVICES, CORE | PARK [...] [facility] | [address] | [place] [address] | | | LYDIA RANGEL | LESLY [...] | | | LABORATORY | | | KENYAN | | | SERVICES, | | | [...] | + + + + + | [facility] | [address] | [place] [address] | | | SERVICES, CORE | PARK [...] + + | [facility] | [address] | [place], [place] | | | JUSTINE DAWN OF CARE | [address] | [address] | | | TESTS | | | [...] [facility] | [address] | [place] | | | [place] [facility] | [address] | [address] | | | TESTS | | | [...] | + + + + + | [facility] | [address] | [place] [address] | | | SERVICES, CORE | LESLY [...] [facility] | [address] | [place] [address] | | | SERVICES, CORE | PARK [...] + + + + | [facility] | [address] | [place] [address] | | | SERVICES, CORE | LESLY [...] (H) | 60 - 99 mg/dL | [facility] - | | | GLUCOSE, [...] [facility] | [address] | [place], [place] | | | [place] OF CARE | [address] | [address] | | | TESTS | | | [...] [facility] | [address] | [place], [place] | | | [place] CARE | [address] | [address] | | | TESTS | | | [...] [facility] | [address] | [place], [place] | | | JUSTINE DAWN OF JAKY | [address] | [address] | | | TESTS | | | [...] | + + + + + | [facility] | [address] [facility] | [place] [address] | | | SERVICES, CORE | PARK [...] | + + + + + | [facility] | [address] [facility] | [place] [address] | | | SERVICES, LYDIA | LESLY [...] + + + + | [facility] | [address] [facility] | [place] [address] | | | SERVICES, CORE | PARK [...] [facility] | [address] | [place] [address] | | | LYDIA RANGEL | PARK [...] | + + + + + | [facility] | [address] | [place] [address] | | | SERVICES, CORE | LESLY [...] | | | LABORATORY | | | KENYAN | | | SERVICES, | | | [...] [facility] | [address] | [place] [address] | | | SERVICES, CORE | PARK [...] | + + + + + | [facility] | [address] | [place] [address] | | | SERVICES, CORE | LESLY [...] [facility] | [address] | [place], [place] | | | [place] CARE | [address] | [address] | | | TESTS | | | [...] + + + + | [facility] | [address] | [place] [address] | | | SERVICES, CORE | LESLY [...] (H) | 60 - 99 mg/dL | [facility] - | | | GLUCOSE, [...] [facility] | [address] | [place], [place] | | | JUSTINE DAWN OF CARE | [address] | [address] | | | TESTS | | | [...] [facility] | [address] | [place], [place] | | | JUSTINE DAWN OF CARE | [address] | [address] | | | TESTS | | | [...] [facility] | [address] | [place], [place] | | | CARDIOLOGY | [address] | [address] | | + + + + + [...] [facility] | [address] | [place], [place] | | | [place] | [address] | [address] | | | TESTS | | | [...] | | | LABORATORY | | | KENYAN | | | SERVICES, | | | [...] the MDRD equation recommended by the | [facility] | | National Kidney Disease Education Program. [...] + + + + | [facility] | [address] | [place] [address] | | | CLAIRE, CORE | LESLY [...] + + + + | [facility] | [address] | [place] [address] | | | SERVICES, LYDIA | LESLY [...] + + + + | [facility] | [address] [facility] | [place] [address] | | | SERVICES, CORE | LESLY [...] | | POC | | | JUSTINE DWAN | | | | | | OF [...] - [facility] | [address] | [place], [place] | | | [place] [facility] | [facility] | [address] | | | TESTS | | | [...] [facility] | [address] | [place] [address] | | | SERVICES, CORE | LESLY [...] + + + + | [facility] | [address] | [place] [address] | | | SERVICES, CORE | [address] | | | + + + + + MADAY CEDILOL (11/07/2015 8:21 AM PDT) + + + [...] [facility] | [address] | [place] [address] | | | SERVICES, CORE | PARK [...] | + + + + + | [facility] | [address] | [place] [address] | | | SERVICES, CORE | LESLY [...] [facility] | [address] | [place], [place] | | | JUST[facility]WN OF [place]AKY | [address] | [address] | | | TESTS | | | [...] | + + + + + | [facility] | [address] | [place] [address] | | | SERVICES, CORE | LESLY [...] | + + + + + | [facility] | [address] | [place] [address] | | | SERVICES, CORE | LESLY [...] [facility] | [address] | [place] [address] | | | CLAIRE, LYDIA | LESLY [...] | | | LABORATORY | | | KENYAN | | | SERVICES, | | | [...] | + + + + + | [facility] | [address] | [place] [address] | | | SERVICES, CORE | PARK [...] ED | | | | | | regenerator operator at 12:33 AM by | | [...] | | + +---------+ + + | [facility] DEPARTMENT OF | | | [...] [facility] | [address] | [place], [place] | | | [place] OF CARE | [address] | [address] | | | TESTS | | | [...] [facility] | [address] | [place], [place] | | | [place] OF CARE | [address] | [address] | | | TESTS | | | [...] | + + + + + | [facility] | [address] | [place] [address] | | | SERVICES, CORE | LESLY [...] [facility] OF | [address] | [place], [place] | | | CARDIOLOGY | [address] | [address] | | + + + + + [...] [facility] | [address] | [place] [address] | | | SERVICES, LYDIA | PARK [...] | + + + + + | [facility] | [address] [facility] | [place] [address] | | | SERVICES, CORE | LESLY [...] | | | LABORATORY | | | KENYAN | | | SERVICES, | | | [...] + + + + | [facility] | [address] | [place] [address] | | | SERVICES, CORE | PARK [...] | + + + + + | [facility] | [address] | [place] [address] | | | SERVICES, CORE | [address] | | | + + + + + ED INFORMATION EXCHANGE (11/06/2015 1:26 PM PDT) + + + + + + | Component | Value | Ref Range | Performed | Pathologist | | | | | At | Signature | + + + + + + | [facility] | [id number] | | [facility] | | | | [id number] | | MEDICAL | | | | [...] | ---- 11/06/2015 | | | 13:25 [facility] | | | [id number]. 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 | | | | | | --- | | + + + + + + + + | Performing | Address | City/State/Zipcode | Phone Number | | Organization | | | | + + + + + | [facility] | [address], | [place], [place] | [phone] | | TE[employer] | [address] | [address] | | + + + + + [...] | | | oral, ONCE, 1 dose, [facility] 11/08/15 | | PM PDT | [...] | | | | ONCE, 1 dose, [facility] 11/08/15 at 1900 | | PM [...]
--- OUTSIDE RECORDS SUMMARY | ~2019-06-25 | XMS | Encounter Summary ---
Demographics + + + | Address | [address] | | | [place] [address] | + + + | Home Phone [...] [place], [place] | | | | | [address] | | + + + + + | Ellie Vang | ECON | Unknown | | + + + + + Care Team Providers + +------+ + | Care Sample Room Supervisor Name | Role | Phone | [...] | | | | | | | [facility] | | | | | | | [facility] | | | | | | | Healing, | | | | | | | [address] | | | | | | | [place], [place] | | | | | | | [address] | | | | | | | Phone: | | | | | | | [phone] | | | | | | | Fax: | | | | | | | [phone] | +--------+--------+ + + + + Encounter [...] | | [address] | [place], [place] | adult (HCC) (Primary | | | | Mailcode: Center | [address] | Dx); Vitamin D | | | | for Health and | | deficiency disease; | | | | Healing, [address] | | Intertriginous | | | | [place], [place] | | candidiasis; | | | | [address] | | Diabetes mellitus | | | [...] Psychological Evaluation: If your referral is at [facility], pain management will call irma [...] the time. If your referral is at [facility], they will call y ou in the next week to schedule. She will arrange 8. Nephrology Consult: Please call [facility] ([phone]) and have them send you a urine specimen container. You will need to discuss your kidney stone risk with a nephrology provid er prior to proceeding with gastric bypass. If your referral is at [facility], they will call you in [...] at the same time: betsy Feldman RN, [facility]- Nurse Practitioner for Bariatric Surgery [facility] | [address] | [place], [place] | [address] | Potential Contraindications to Bariatric Surgery Age [...] other providers does not guarantee that the [facility] Bariatric Surger y program will deem you a surgical candidate. documented in this encounter Progress Notes Shereen Pinto ACNP - 06/16/2013 1:28 PM PSTFormatting of this note might be different fro m the original. BARIATRIC INITIAL VISIT Provider: Shereen Pinto DNP, DANIELLEP, WELL TREATMENT OFFSIDER Referring Provider: Dr. Fadi Goodrich, [place] [phone] Reason for Requested Consultation: Initial evaluation for bariatric surgery. Elzbieta Cristina is interested in Frandy en y alfredo tomeka bypass. The pt is here With her sister. Following surgery her mother and sister will care for her, she will Stay in [place] after surgery so that she is close by. She lives in [place]. They have few stairs to get into [...] recently gained weight, she met with our roving inspector today, she has been making poor food [...] none Use of Redux or Phen/fen: no Caodaism or cultural reason you would refuse blood [...] as well , hypertension, hyperlipidemia. Denies CHF, ME, ischemic heart disease, DVT/PE, or pulmonary hypertension. [...] the therapy. 8. Nephrology Consult: Please call [facility] ([phone]) and have them send you a urine specimen container. You will need to discuss your kidney stone risk with a nephrology provid er prior to proceeding with gastric bypass. If your referral is at [facility], they will call you in the next week to schedule. You are at increased risk of renal stones after surgery, with your history of stone, we want to check of oxalate in your urine. You will need a referral to a town administrator If your level is elevated. 9. See [...] soon as possible Shereen Pinto DNP ACNP, WELL TREATMENT OFFSIDER Nurse Practitioner for Bariatric Surgery [facility] | [address] | [place] | [address] | Potential Contraindications to Bariatric Surgery Age [...] other providers does not guarantee that the [facility] Bariatric Surger y program will [...] | | | | | [facility] [place] | | | | | | [address] | | | | | | [phone] | | | | | | | | +--------+ + + + + | 08/19/ | Surgery | Surgery | Chilo | OPEN VENTRAL HERNIA | | 2019 | | | MD [address] | REPAIR WITH | | | | | [address] | BIOLOGICAL MESH | | | | | [place], [place] | | | | | | [address] | | | | | | [phone] | | | | | | | | +--------+ + + + + | 09/15/ | Office | Cardiology | Randell Franks, | | | 2019 | Visit | | [address] | | | | | | [place], [place] | | | | | | [address] | | | | | | [phone] | | | | | | | [...] at | | | | | | [email or web address] Test | | | | | | developed and | | | | | | characteristics | | | | | | determined by | | | | | | [facility]. See | | | | | | Compliance Statement B: | | | | | | [email or web address] | | | | | | by [facility],[address] | | | | | | [address], [facility] | | | | | | [address] | | | | | | [phone]. | | | | | | com, [...] at | | | | | | [facility] Test | | | | | | developed and | | | | | | characteristics | | | | | | determined by | | | | | | [facility]. See | | | | | | Compliance Statement B: | | | | | | [employer]/CS | | | | + + + + + + + + | Specimen | + + | Blood - Blood | + + + + + + + | Performing | Address | City/State/Zipcode | Phone Number | | Organization | | | | + + + + + | [facility] | [address] | [place], [place] | | | [facility] | | [address] | | + + + + + [...]
--- OUTSIDE RECORDS SUMMARY | ~2019-06-25 | XMS | Encounter Summary ---
Demographics + + + | Address | [address] | | | [place] [address] | + + + | Home Phone [...] [place], [place] | | | | | [address] | | + + + + + | Ellie Vang | ECON | Unknown | | + + + + + Care Team Providers + +------+ + | Care Ultrasonic Tester Name | Role | Phone | [...] | | | [address] | [facility] | | | | | Mailcode: Center | [place], [place] | | | | | [facility] and | [address] | | | | | [facility], [facility] [address] | [phone] | | | | | [place], [place] | | | | | | [address] | | | | | | [phone] | | | +--------+ + + + [...] Rd | | | | | | [place], [place] | | | | | | [address] | | | | | | [phone] | | | | | | | | +--------+ + + + + | 08/19/ | Surgery | Surgery | Chilo | OPEN VENTRAL HERNIA | 2019 | | | Jorje, MD [address] | REPAIR WITH | | | | | [address] | BIOLOGICAL MESH | | | | | [place], [place] | | | | | | [address] | | | | | | [phone] | | | | | | | | +--------+ + + + + | 09/15/ | Office | Cardiology | Randell Franks, | | | 2019 | Visit | | [address] | | | | | | [place] [facility] [place] | | | | | | [address] | | | | | | [phone] | | | | | | | | +--------+ + + + + documented as of this encounter Visit Diagnoses Not on filedocumented in this encounter"
--- OUTSIDE RECORDS SUMMARY | ~2019-06-25 | XMS | Encounter Summary ---
Demographics + + + | Address | [address] | | | [place] [address] | + + + | Home Phone [...] + | Katalina Padilla | ECON | [address] | | | | | [place], [place] | | | | | [address] | | + + + + + | Ellie Vang | ECON | Unknown | | + + + + + Care Team Providers + +------+ + | Care Sewer System Supervisor Name | Role | Phone | + +------+ + | Fadi Goodrich DO | PCP | | + +------+ + Reason for Visit + + + | Reason | Comments | + + + | Medical Records | Pre-surgery meal plan. To be provided to home health nurse. | | Review | | + + + Encounter Details +--------+ + + + + | Date | Type | Department | Care Team | Description | +--------+ + + + + | 11/13/ | Abstract | Digestive Health | Shereen Georges, | Medical Records | | 2014 | | Center at [facility] [address] | [facility] [address] | Review (Pre-surgery | | | | [address] | Ave [place], [place] | meal plan. To be | | | | Mailcode: Center | [address] | provided to home | | | | for Health and | | health nurse. ) | | | | [facility], [address] | | | | | | [place], [place] | | | | | | [address] | | | | | | | [...] Rd | | | | | | [place], [place] | | | | | | [address] | | | | | | [phone] | | | | | | | | +--------+ + + + + | 08/19/ | Surgery | Surgery | Chilo, | OPEN VENTRAL HERNIA | | 2019 | | | MD Jorje [address] | REPAIR WITH | | | | | [address] | BIOLOGICAL MESH | | | | | [place] | | | | | | [address] | | | | | | [phone] | | | | | | | | +--------+ + + + + | 09/15/ | Office | Cardiology | Randell Franks, | | | 2019 | Visit | | [address] | | | | | | [place] | | | | | | [address] | | | | | | [phone] | | | | | | | | +--------+ + + + + documented as of this encounter Visit Diagnoses Not on filedocumented in this encounter"
--- OUTSIDE RECORDS SUMMARY | ~2019-06-25 | XMS | Encounter Summary ---
Demographics + + + | Address | [address] | | | [place] [address] | + + + | Home Phone | | + + + | Preferred Language | Unknown | + + + | Marital Status | | + + + | Mandaen Affiliation | Unknown | + + + | Race | Unknown | + + + | Ethnic Group | Unknown | + + + Author + + + | Author | [facility] | | | and Jeffana | + + + | Organization | [facility] | | | and Jeffana [...] Team Providers + +------+ + | Care Catalyst Unit Operator Name | Role | Phone | + +------+ + PCP | Unavailable | + +------+ + Encounter Details +--------+ + + + + | Date | Type | Department | Care Team | Description | +--------+ + + + + | 09/27/ | Orders Only | [facility] | Dharmesh Escobar, | | | 2019 | | NEPHROLOGY [place] | [address] | | | | | [address] | [address] | | | | | [address] [place], [place] | [place] | | | | | [address] | [address] | | | | | [phone] | [phone] | | | | | | | [...] + + + | RED CELL | 5.20 (A) | 3.8 - 5.1 10 | EXTERNAL | | | COUNT | | | LAB | | + + + + + + | Hgb | 15.1 | 12.0 - 16.0 | [...] | | | LAB | | | [place] | | | | | + +---------+ [...]
--- OUTSIDE RECORDS SUMMARY | ~2019-06-25 | XMS | Encounter Summary ---
Demographics + + + | Address | [address] | | | [place] [address] | + + + | Home Phone [...] + | Katalina Padilla | ECON | [address] | | | | | [place], [place] | | | | | [address] | | + + + + + | Ellie Vang | ECON | Unknown | | + + + + + Care Team Providers + +------+ + | Care Water Chemist Name | Role | Phone | + [...] Medical Records | | 2013 | | [place] at [facility] [address] | [address] | Review ([facility] - | | | | [address] | [address] | OUTSIDE RECORDS) | | | | Mailcode: [place] | [place], [place] | | | | | and | [address] | | | | | [place] [address] | [phone] | | | | | [place], [place] | | | | | | [address] | | | | | | [phone] | | | +--------+ + + + [...] Rd | | | | | | [facility] [place] | | | | | | [address] | | | | | | [phone] | | | | | | | | +--------+ + + + + | 08/19/ | Surgery | Surgery | Chilo, | OPEN VENTRAL HERNIA | | 2019 | | | MD [address] | REPAIR WITH | | | | | [address] | BIOLOGICAL MESH | | | | | [place], [place] | | | | | | [address] | | | | | | [phone] | | | | | | | | +--------+ + + + + | 09/15/ | Office | Cardiology | Randell Franks, | | | 2020 | Visit | | [address] | | | | | | [place], [place] | | | | | | [address] | | | | | | [phone] | | | | | | | | +--------+ + + + + documented as of this encounter Visit Diagnoses Not on filedocumented in this encounter"
--- OUTSIDE RECORDS SUMMARY | ~2019-06-25 | XMS | Encounter Summary ---
Demographics + + + | Address | [address] | | | [place] [address] | + + + | Home Phone [...] [place], [place] | | | | | [address] | | + + + + + | Ellie Vang | ECON | Unknown | | + + + + + Care Team Providers + +------+ + | Care Freight Shipping Agent Name | Role | Phone | + +------+ + | Kenyatta Cardenas MD | PCP | | + +------+ + Reason for Visit + + + | Reason | Comments | + + + | New patient | panniculectomy | | consultation | | + + + AUTH/CERT +--------+--------+ [...] 2019 | Visit | Reconstructive | [address] | abdomen (Primary Dx) | | | | Surgery at [facility] [address] | [place], [place] | | | | | [address] | [address] | | | | | Mailcode: [facility] | [phone] | | | | | [facility] | | | | | | and Healing, | | | | | | Building [address], | | | | | | Floor [place], [place] | | | | | | [address] | | | | | | [phone] | | | +--------+---------+ + + + [...] + documented as of this encounter Progress Silver Hobson - 05/13/2019 2:30 PM PDT PANNICULECTOMY CONSULT [...] Andie Brian Incisional hernia repair 03/01/2015 [facility]/ Dr. Cantu. Primary fascial closure and scar excision Lap gastric byp, and nilesh-en-y gastroenterostomy w/ nilesh limb 150 cm or less [facility], laparoscopic Allergies Allergen Reactions Amoxicillin [...] 50 mg by mouth once daily. CALCIUM CRB&HQG-Q5-BPA27-GENIS ORAL Take 2 tablets by mouth two [...] ED for further evaluation. I am Silver Dorothy functioning as a scribe for Archie Ybarra [...] 2020 | Encounter | | MD Jorje [address] | | | | | | [address] | | | | | | [place], [place] | | | | | | [address] | | | | | | [phone] | | | | | | | | +--------+ + + + + | 08/19/ | Surgery | Surgery | Chilo, | OPEN VENTRAL HERNIA | | 2019 | | | MD Jorje [address] | REPAIR WITH | | | | | [address] | BIOLOGICAL MESH | | | | | [place], [place] | | | | | | [address] | | | | | | [phone] | | | | | | | | +--------+ + + + + | 09/15/ | Office | Cardiology | Randell Franks, | | | 2019 | Visit | | [address] | | | | | | [address] [place], [place] | | | | | | [address] | | | | | | [phone] | | | | | | | | +--------+ + + + + documented as of this encounter Visit Diagnoses + + | Diagnosis | + + | Excess skin of abdomen - Primary Unspecified hypertrophic and atrophic condition of | | skin | + + documented in this encounter
--- OUTSIDE RECORDS SUMMARY | ~2019-06-25 | XMS | Encounter Summary ---
Demographics + + + | Address | [address] | | | [place] [address] | + + + | Home Phone [...] [place], [place] | | | | | [address] | | + + + + + | Ellie Vang | ECON | Unknown | | + + + + + Care Team Providers + +------+ + | Care Dock Hand Name | Role | Phone | [...] | | 2014 | | Preventive at [facility] | MD [address] | | | | | [address] | Ave [place], [place] | | | | | Mailcode: [facility] | [address] | | | | | [facility] | [phone] | | | | | and [address], | | | | | | [address] | | | | | | [place], [place] | | | | | | [address] | | | | | | [phone] | | | +--------+--------+ + + + [...] Rd | | | | | | [place], [place] | | | | | | [address] | | | | | | [phone] | | | | | | | | +--------+ + + + + | 08/19/ | Surgery | Surgery | Chilo, | OPEN VENTRAL HERNIA | | 2019 | | | MD [address] | REPAIR WITH | | | | | [address] | BIOLOGICAL MESH | | | | | [place], [place] | | | | | | [address] | | | | | | [phone] | | | | | | | | +--------+ + + + + | 09/15/ | Office | Cardiology | Randell Frnaks, | | | 2019 | Visit | | MD [address] | | | | | | [place], [place] | | | | | | [address] | | | | | | [phone] | | | | | | | | +--------+ + + + + documented as of this encounter Visit Diagnoses Not on filedocumented in this encounter"
--- OUTSIDE RECORDS SUMMARY | ~2019-06-25 | XMS | Encounter Summary ---
Demographics + + + | Address | [address] | | | [place] [address] | + + + | Home Phone [...] + | Katalina Padilla | ECON | [address] | | | | | [place], [place] | | | | | [address] | | + + + + + | Ellie Vang | ECON | Unknown | | + + + + + Care Team Providers + +------+ + | Care Beef Lugger Name | Role | Phone | + [...] | | Surgery | Diagnoses | | [place], | | | | | Ventral | Chilo, | MD Jones | | | | | hernia | MD Jones | [address] | | | | | without | [address] | [address] | | | | | obstruction | [address] | Rd [place], | | | | | or gangrene | Rd | [place] | | | | | Procedures | [place], [place] | [address] | | | | | REQUEST TO | [address] | Phone: | | | | | SURGERY | Phone: | [phone] | | | | | GAS DISTRIBUTION PLANT OPERATOR | [phone] | Fax: | | | | | | Fax: | [phone] | | | | | | [phone] | | +--------+--------+ + + + + [...] 2019 | Visit | Center at [address] | MD Jones [address] | without obstruction | | | | [address] | [facility] [address] | or gangrene (Primary | | | | Mailcode: Center | [place], [place] | Dx) | | | | for Health and | [address] | | | | | Healing, [address] | [phone] | | | | | [place], [place] | | | | | | [address] | | | | | | [phone] | | | +--------+---------+ + + + [...] (1?2 cup) 6.5 Avocado 1?2 fruit 2.1 [place] sprouts, cooked 125 mL (1?2 cup) 2.0 Figs, dried 60 mL (1?4 cup) 1.9 [place] 1 medium 1.8 Sweet Potato, cooked, without [...] 1.3 Eggplant 125 mL (1?2 cup) 1.3 Grainger, with skin 1 medium 1.0-1.3 Peas, green, cooked 125 mL (1?2 cup) 0.8-1.3 Carrot, cooked John 125 mL (1?2 cup) 1?2 fruit 1.1-1.2 0.7-1.1 Grapefruit 1?2 fruit 0.7-1.1 Prunes, dried 3 1.1 Candelaria Arenas, with skin 2 fruits 1.1 Apricots, dried [...] Bread, rye 35 g (1 slice) 0.6-1.0 [place] bread crackers 3 crackers 0.9 Raisin bran [...] of Soluble Fiber [email or web address] PATIENT SURGERY INFORMATION [facility] General Surgery Office Toll-free: ext [phone] Surgery Date: Monday, July 08, [address]: [facility] Procedure: recurrent ventral hernia repair Surgeon Name: Dr. Jones Tiwari DIRECTIONS FOR SURGERY TO PREPARE FOR SURGERY - If you are able, walk every day for at least 30 minutes. - Follow up: Phone pre-operative medicine clinic call to be completed within 30 days of [facility]. This call appointment will be scheduled with you by a installation engineer. You will receive a ca ll within [...] ease call the General Surgery Office at [phone] for [id number]. Check-in on the day of surgery is at the Admitting Department located on the 9th floor of [facility]. DIET Nothing to eat or [...] the surgery. Please see the list below, [facility] has a list of products that contain [...] contact our office . Products Containing Aspirin Yuki-[place], Anacin, Anexsia with Codeine, Andynos, Aspirin, Aspirin suppositories, Ascrip tin, Aspergum, Axotal, B-A-C, Baby Aspirin, Lucila, BC Powder, Bexophene, Buffaprin, Bufferin , Buffinol, Cama-Arthritis Strength, Congespirin, [place], Coricidin, Damason, Darvon, Dristan, Kalani-Gesic, Digel, Dolprin #3 Tablets, Donatab, Doxaphene, Duragesic, Easprin, Ecotrin, Emag rin Forte, Emiprin, Emprazil, Equagesic, Equazine M, Excedrin, Fiogesic, Fiorgen PH, Fiorice t, Fiorinal, 4-Way Cold Tablet, Gemnisyn, Indocin, Liquprin, Lortab ASA, Magnaprin, Marnal, Meprobamate, Midol, Momentum, Norgesic, [place], Orphengesic, Pabalate, P-A-C, Percodan, Pre salin, Robaxasil, Roxiprin, Saleto, Salocol, SK-65 Compound, Sine-Aid, Sine-Off, [place], Supac, Talwin Compound, Trigesic, Tolectin, Traiminicin, Vanquish, ZORprin, Zomax Products Containing Ibuprofen Advil, Aleve, Haltran, Medipren, Midol, Motrin, Naproxyn, Nuprin, Rufen Herbal Medications Ephedra: discontinue 24 hours before surgery Garlic: discontinue 7 days prior to surgery Ginkgo: discontinue 36 hours prior to surgery Ginseng: discontinue 7 days prior to surgery Kava: discontinue 24 hours prior to surgery [place] s Wort: discontinue 5 days prior to surgery Valerian: discontinue several weeks prior to surgery Other Products Which May Promote Bleeding Vitamin E, Gingko Biloba, Marine Fatty Acids, [place]-3 Fish Oil Supplement PRE-OP BATHING/SHOWER INSTRUCTIONS with [facility] Bathe or shower the evening before [...] loss of tissue. Check out the free [place] Quit Line - The Quit Line is open 24 hours a day, seven days a we ek. The Quit Line is a telephone and web-based counseling service to help [place]ians quit us ing tobacco and nicotine products. .QUIT.NOW ( ) or www.quitnow.net/[place] PARKING Parking at the Hospital for patients and visitors is available in the [facility] Parking s tructure located across from the emergency department. Patient parking is available on level 1 and 3. Metered parking is available on the top level. Parking at [facility] is available in the building's parking structure. For additional parking options visit [email or web address]. TRANSPORTATION You will require transportation home on the day of discharge. Pain medications and physical activity restrictions may limit your ability to drive safely. CANCELLING YOUR PROCEDURE Please notify the general surgery office at [phone] as soon as possible should you nee [...] lost 100+ lbs! She last saw the [facility] team in 02/2019, at which [...] plans to see an ENT and a finisher fiberglass boat parts for her symptoms in the near future. [...] 2010 Ventral hernia repair 10/2012 Dr. Andie Brina Incisional hernia repair 03/01/2015 [facility]/ Dr. Cantu. Primary fascial closure and scar excision Lap gastric byp, and nilesh-en-y gastroenterostomy w/ nilesh limb 150 cm or less 8 [facility] Past Medical History: Diagnosis Date [...] file Gets together: Not on file Attends mandaeism service: Not on file Active member of club or organization: Not on file Attends meetings of clubs or organizations: Not on file Relationship status: Not on file Other Topics Concern Not on file Social History Narrative Updated 11/09/15 She lives in [place] with her mother and her sister (also her caregiver) lives in an apa rtment/duplex below. She has 2 grandchildren (age 4 and 7) who live with her daughter and son-in-law Her boyfriend lives in [place] HFpEF, DM2, HTN, Sleep Apnea (unable to [...] program here and refer her to our database management specialist who also has expertise in physical [...] daily. BELBUCA 600 mcg buccal film CALCIUM CRB&ANR-N7-JNO88-GENIS ORAL Take 2 tablets by mouth two [...] morbid obesity s/p laparoscopic anteocolic RYGB (03/01/2018); [facility] e this operation, she has lost 100+ [...] by Gadiel Yi . JONES TIWARI MD [facility] AT [facility] [address] Mailcode: [place] [address] I spent 31 minutes with [...] Rd | | | | | | [place], [place] | | | | | | [address] | | | | | | [phone] | | | | | | | | +--------+ + + + + | 08/19/ | Surgery | Surgery | Chilo, | OPEN VENTRAL HERNIA | | 2019 | | | MD Jones [address] | REPAIR WITH | | | | | [address] | BIOLOGICAL MESH | | | | | [place], [place] | | | | | | [address] | | | | | | [phone] | | | | | | | | +--------+ + + + + | 09/15/ | Office | Cardiology | Randell Franks, | | | 2019 | Visit | | [address] | | | | | | [place], [place] | | | | | | [address] | | | | | | [phone] | | | | | | | | +--------+ + + + + documented as of this encounter Visit Diagnoses + + | Diagnosis | + + | Ventral hernia without obstruction or gangrene - Primary Ventral hernia, unspecified, | | without mention of obstruction or gangrene | + + documented in this encounter
--- OUTSIDE RECORDS SUMMARY | ~2019-06-25 | XMS | Encounter Summary ---
Demographics + + + | Address | [address] | | | [place] [address] | + + + | Home Phone [...] + | Katalina Padilla | ECON | [address] | | | | | [place], [place] | | | | | [address] | | + + + + + | Ellie Vang | ECON | Unknown | | + + + + + Care Team Providers + +------+ + | Care Reducing Machine Operator Name | Role | Phone | + +------+ + | Kenyatta Cardenas MD | PCP | | + +------+ + Encounter Details +--------+ + + + + | Date | Type | Department | Care Team | Description | +--------+ + + + + | 03/01/ | Procedure | Diagnostic Imaging | | | | 2019 | Pass | Services at [facility] | | | | | | [address] | | | | | | Lesly Gutiérrez Mailcode: | | | | | | [address] [facility] | | | | | | [place], [place] | | | | | | [address] | | | | | | [phone] | | | +--------+ + + + [...] Rd | | | | | | [place], [place] | | | | | | [address] | | | | | | [phone] | | | | | | | | +--------+ + + + + | 08/19/ | Surgery | Surgery | Chilo | OPEN VENTRAL HERNIA | | 2019 | | | MD [address] | REPAIR WITH | | | | | [address] | BIOLOGICAL MESH | | | | | [place], [place] | | | | | | [address] | | | | | | [phone] | | | | | | | | +--------+ + + + + | 09/15/ | Office | Cardiology | Randell Franks, | | | 2019 | Visit | | [address] | | | | | | [place] | | | | | | [address] | | | | | | [phone] | | | | | | | | +--------+ + + + + documented as of this encounter Visit Diagnoses Not on filedocumented in this encounter"
--- OUTSIDE RECORDS SUMMARY | ~2019-06-25 | XMS | Encounter Summary ---
Demographics + + + | Address | [address] | | | [place] [address] | + + + | Home Phone [...] [place], [place] | | | | | [address] | | + + + + + | Ellie Vang | ECON | Unknown | | + + + + + Care Team Providers + +------+ + | Care Mini Lab Operator Name | Role | Phone | [...] | | | 2013 | Event | [facility] | [address] | | | | | Admitting Desk | Lesly Gutiérrez [facility] | | | | | [facility] on the | [place] [address] | | | | | floor [address] | [phone] | | | | | [address] | | | | | | [place], [place] | | | | | | [address] | | | +--------+ + + + [...] Rd | | | | | | [place], [place] | | | | | | [address] | | | | | | [phone] | | | | | | | | +--------+ + + + + | 08/19/ | Surgery | Surgery | Chilo | OPEN VENTRAL HERNIA | | 2019 | | | MD [address] | REPAIR WITH | | | | | [address] | BIOLOGICAL MESH | | | | | [place], [place] | | | | | | [address] | | | | | | [phone] | | | | | | | | +--------+ + + + + | 09/15/ | Office | Cardiology | Randell Franks, | | | 2019 | Visit | | [address] | | | | | | [place], [place] | | | | | | [address] | | | | | | [phone] | | | | | | | [...] lactated ringers IV | given by | 07/15/20 | | | | | INTRAPROCEDURE CONTINUOUS [...] 6:44 | | | | | Starting 7/15/14 at 1733, | anesthes | PM PDT [...]
--- OUTSIDE RECORDS SUMMARY | ~2019-06-25 | XMS | Encounter Summary ---
Demographics + + + | Address | [address] | | | [place] [address] | + + + | Home Phone | | + + + | Preferred Language | Unknown | + + + | Marital Status | | + + + | Episcopal Affiliation | Unknown | + + + | Race | Unknown | + + + | Ethnic Group | Unknown | + + + Author + + + | Author | [facility] | | | and Jeffana | + + + | Organization | [facility] | | | and Jeffana [...] Team Providers + +------+ + | Care Counselor Education Professor Name | Role | Phone | + +------+ + PCP | Unavailable | + +------+ + Encounter Details +--------+ + + + + | Date | Type | Department | Care Team | Description | +--------+ + + + + | 02/03/ | Abstract | [facility] | Provider, | | | 2019 | | GASTROENTEROLOGY | MD Zulma Saab | | | | | [address] [facility] | Mayur Flannery. | | | | | [address], [place] | [place] [address] | | | | | [address] | | | | | | [phone] | | | +--------+ + + + [...] | + +--------+ + + + | HEPATITIS C, | Routin | 12/17/2018 | | Results for this | | FIBROSURE PANEL | e | | | procedure are in the | | | | | | results section. | + +--------+ + + + | VITAMIN B-12 | Routin | 12/15/2018 | | Results for this | | | e | | | procedure are in the | | | | | | results section. | + +--------+ + + + | EXTERNAL LAB: CBC | Routin | 12/14/2018 | | Results for this | | | e | | | procedure are in the | | | | | | results section. | + +--------+ + + + | EXTERNAL LAB: | Routin | 10/04/2018 | | Results for this | | MAGNESIUM | e | | | procedure are in the | | | | | | results section. | + +--------+ + + + | EXTERNAL LAB: | Routin | 10/04/2018 | | Results for this | | VITAMIN D, | e | | | procedure are in the | | 25-HYDROXY | | | | results section. | + +--------+ + + + | EXTERNAL LAB: | Routin | 10/04/2018 | | Results for this | | FERRITIN | e | | | procedure are in the | | | | | | results section. | + +--------+ + + + | PROTEIN C AND S, | Routin | 10/04/2018 | | Results for this | | FUNCTIONAL (NON-ORD) | e | | | procedure are in the | | | | | | results section. | + +--------+ + + + | EXTERNAL LAB: | Routin | 10/04/2018 | | Results for this | | PROTIME INR | e | | | procedure are in the | | | | | | results section. | + +--------+ + + + | EXTERNAL LAB: TSH | Routin | 10/04/2018 | | Results for this | | | e | | | procedure are in the | | | | | | results section. | + +--------+ + + + | ANTITHROMBIN III | Routin | 10/04/2018 | | Results for this | | ACTIVITY | e | | | procedure are in the | | | | | | results section. | + +--------+ + + + | BETA 2 GLYCOPROTEIN | Routin | 10/04/2018 | | Results for this | | AB, IGA, IGG AND IGM | e | | | procedure are in the | | | | | | results section. | + +--------+ + + + | VITAMIN B-12 | Routin | 10/04/2018 | | Results for this | | | e | | | procedure are in the | | | | | | results section. | + +--------+ + + + | LUPUS ANTICOAGULANT | Routin | 10/04/2018 | | Results for this | | PROFILE | e | | | procedure are in the | | | | | | results section. | + +--------+ + + + | FACTOR V RACHID | Routin | 10/04/2018 | | Results for this | | MUTATION | e | | | procedure are in the | | | | | | results section. | + +--------+ + + + | PROTEIN | Routin | 10/04/2018 | | Results for this | | ELECTROPHORESIS, | e | | | procedure are in the | | SERUM | | | | results section. | + +--------+ + + + | HOMOCYSTEINE | Routin | 10/04/2018 | | Results for this | | | e | | | procedure are in the | | | | | | results section. | + +--------+ + + + | HEMOGLOBIN A1C | Routin | 10/04/2018 | | Results for this | | | e | | | procedure are in the | | | | | | results section. | + +--------+ + + + documented in this encounter Results Hepatitis C, Fibrosure Panel (12/17/2018) + + + + + + | Component | Value | Ref Range | Performed | Pathologist | | | | | At | Signature | + + + + + + | Alpha | 284 | | | | | 2-Macroglob | | | | | | ulins, Qn | | | | | + + + + + + | Alanine, | 18 | | | | | Plasma | | | | | + + + + + + | Aspartate | 22 | | | | + + + + + + | Gamma | 15 | | | | | Glutamyl | | | | | | Transferase | | | | | + + + + + + | Urea | 16 | | | | | Nitrogen, | | | | | | Body fluid | | | | | + + + + + + | Platelet | 298 | | | | | Count | | | | | + + + + + + | Prothrombin | 97 | | | | | Result | | | | | + + + + + + | FibroMeter | 0.17 | | | | | Prothrombin | | | | | | Index | | | | | + + + + + + | CirrhoMeter | 0 | | | | | Patient | | | | | | Score | | | | | + + + + + + | FIBROSURE | F1 | | | | | STAGE | | | | | + + + + + + | InflaMeter | 0.26Comment: INFLAMETER | | | | | Patient | CLASS: A0/A1 | | | | | Score | | | | | + + + + + + + + | Specimen | + + | Blood | + + Vitamin B-12 (12/15/2018) + +-------+ + + + | Component | Value | Ref Range | Performed | Pathologist | | | | | At | Signature | + +-------+ + + + | Vitamin B12 | >2000 | 232 - 1,245 | | | + +-------+ + + + + + | Specimen | + + | Blood | + + External Lab: CBC (12/14/2018) + +-------+ + + + | Component | Value | Ref Range | Performed | Pathologist | | | | | At | Signature | + +-------+ + + + | PLT, | 298 | 140 - 440 | EXTERNAL | | | External | | | LAB | | + +-------+ + + + + +---------+ + + | Performing | Address | City/State/Zipcode | Phone Number | | Organization | | | | + +---------+ + + | EXTERNAL LAB | | | | + +---------+ + + Protein Electrophoresis, Serum (10/04/2018) + + + + + + | Component | Value | Ref Range | Performed | Pathologist | | | | | At | Signature | + + + + + + | PROTEIN | 6.8 | 6 - 8.3 | | | | (CALC) | | | | | + + + + + + | Albumin | 3.3 | 2.8 - 5.7 g/dL | | | + + + + + + | ALPHA 1 %, | 0.25 | 0.1 - 0.32 | | | | BF | | | | | + + + + + + | ALPHA 2 %, | 0.91 (A) | 0.54 - 0.9 | | | | BF | | | | | + + + + + + | Result | 1.09Comment: Component: | 0.6 - 1.09 | | | | | BETA | | | | + + + + + + | GAMMA, BF | 1.27 | 0.36 - 1.8 | | | + + + + + + + + | Specimen | + + | Blood | + + External Lab: Vitamin D, 25-Hydroxy (10/04/2018) + +-------+ + + + | Component | Value | Ref Range | Performed | Pathologist | | | | | At | Signature | + +-------+ + + + | Vitamin D, | 50 | 30 - 100 | EXTERNAL | | | 25-Hydroxy, | | | LAB | | | External | | | | | + +-------+ + + + + + | Specimen | + + | Blood | + + + +---------+ + + | Performing | Address | City/State/Zipcode | Phone Number | | Organization | | | | + +---------+ + + | EXTERNAL LAB | | | | + +---------+ + + External Lab: Protime INR (10/04/2018) + + + + + + | Component | Value | Ref Range | Performed | Pathologist | | | | | At | Signature | + + + + + + | INR, | 0.9 | | EXTERNAL | | | External | | | LAB | | + + + + + + | PT, | 12.3 (A) | 12.8 - 15.5 | EXTERNAL | | | External | | | LAB | | + + + + + + + + | Specimen | + + | Blood | + + + +---------+ + + | Performing | Address | City/State/Zipcode | Phone Number | | Organization | | | | + +---------+ + + | EXTERNAL LAB | | | | + +---------+ + + Vitamin B-12 (10/04/2018) + +-------+ + + + | Component | Value | Ref Range | Performed | Pathologist | | | | | At | Signature | + +-------+ + + + | Vitamin B12 | 1,057 | 232 - 1,245 | | | | Bind | | | | | | Capacity | | | | | + +-------+ + + + + + | Specimen | + + | Blood | + + Hemoglobin A1C (10/04/2018) + + + + + + | Component | Value | Ref Range | Performed | Pathologist | | | | | At | Signature | + + + + + + | Hemoglobin | 5.5Comment: Estimated | % | EXTERNAL | | | A1c | Average Glucose 111 | | LAB | | + + + + + + + + | Specimen | + + | Blood | + + + +---------+ + + | Performing | Address | City/State/Zipcode | Phone Number | | Organization | | | | + +---------+ + + | EXTERNAL LAB | | | | + +---------+ + + External Lab: Magnesium (10/04/2018) + +---------+ + + + | Component | Value | Ref Range | Performed | Pathologist | | | | | At | Signature | + +---------+ + + + | Magnesium, | 1.5 (A) | 1.7 - 2.5 | EXTERNAL | | | External | | | LAB | | + +---------+ + + + + +---------+ + + | Performing | Address | City/State/Zipcode | Phone Number | | Organization | | | | + +---------+ + + | EXTERNAL LAB | | | | + +---------+ + + External Lab: Ferritin (10/04/2018) + +-------+ + + + | Component | Value | Ref Range | Performed | Pathologist | | | | | At | Signature | + +-------+ + + + | Ferritin, | 83.89 | 13 - 150 | EXTERNAL | | | External | | | LAB | | + +-------+ + + + + +---------+ + + | Performing | Address | City/State/Zipcode | Phone Number | | Organization | | | | + +---------+ + + | EXTERNAL LAB | | | | + +---------+ + + External Lab: TSH (10/04/2018) + +-------+ + + + | Component | Value | Ref Range | Performed | Pathologist | | | | | At | Signature | + +-------+ + + + | TSH, | 1.68 | 0.27 - 4.2 | EXTERNAL | | | External | | | LAB | | + +-------+ + + + + + | Specimen | + + | Blood | + + + +---------+ + + | Performing | Address | City/State/Zipcode | Phone Number | | Organization | | | | + +---------+ + + | EXTERNAL LAB | | | | + +---------+ + + Factor V Leiden Mutation (10/04/2018) + + + + + + | Component | Value | Ref Range | Performed | Pathologist | | | | | At | Signature | + + + + + + | Factor V | Negative | | | | | Leiden | | | | | + + + + + + + + | Specimen | + + | Blood | + + Antithrombin III activity (10/04/2018) + +-------+ + + + | Component | Value | Ref Range | Performed | Pathologist | | | | | At | Signature | + +-------+ + + + | ANTITHROMBI | 108 | | | | | N ACTIVITY | | | | | + +-------+ + + + + + | Specimen | + + | Blood | + + Beta 2 Glycoprotein Ab, IgA, IgG and IgM (10/04/2018) + + + + + + | Component | Value | Ref Range | Performed | Pathologist | | | | | At | Signature | + + + + + + | BETA 2 | <6 | 0 - 7 | | | | GLYCO 1 IGG | | | | | + + + + + + | BETA 2 | <2.9 | 0 - 7 | | | | GLYCO 1 IGM | | | | | + + + + + + | Result | 1.4Comment: Component: | 0 - 7 | | | | | B2 Glyco, IgA | | | | + + + + + + + + | Specimen | + + | Blood | + + Protein C and S, Functional (10/04/2018) + + + + + + | Component | Value | Ref Range | Performed | Pathologist | | | | | At | Signature | + + + + + + | PROTEIN C | 166 | 77 - 173 | | | | FUNCTIONAL | | | | | + + + + + + | Result | 142Comment: Protein S | 57 - 161 | | | + + + + + + + + | Specimen | + + | Blood | + + Lupus Anticoagulant Profile (10/04/2018) + +-------+ + + + | Component | Value | Ref Range | Performed | Pathologist | | | | | At | Signature | + +-------+ + + + | PTT, | 27 | 22.9 - 41.3 | | | | External | | | | | + +-------+ + + + | dRVVT | 1.12 | 0 - 1.21 | | | + +-------+ + + + + + | Specimen | + + | Blood | + + Homocysteine (10/04/2018) + +-------+ + + + | Component | Value | Ref Range | Performed | Pathologist | | | | | At | Signature | + +-------+ + + + | HOMOCYSTEIN | 8.53 | 4.44 - 13.56 | | | | E, TOTAL | | | | | | (REF) | | | | | + +-------+ + + + + + | Specimen | + + | Blood | + + documented in this encounter Visit Diagnoses Not on filedocumented in this encounter"
--- OUTSIDE RECORDS SUMMARY | ~2019-06-25 | XMS | Encounter Summary ---
Demographics + + + | Address | [address] | | | [place] [address] | + + + | Home Phone [...] [place], [place] | | | | | [address] | | + + + + + | Ellie Vang | ECON | Unknown | | + + + + + Care Team Providers + +------+ + | Care Wound Care Center Consultant Name | Role | Phone | [...] | | | | Mailcode: Center | [place], [place] | with insulin therapy | | | | for Health and | [address] | (HCC) | | | | [facility] | [phone] | | | | | [place], [place] | | | | | | [address] | | | | | | [phone] | | | +--------+---------+ + + + [...] of Visit: 1:30 to 1:55 (25 minutes yycw-yd-egha with patient). Pt seen tog ether with Rossana Espinoza RD (training) SUBJECTIVE: Working with RN to get access to [employer] water exercises. States she was down to 374lbs by following LRD but with complications (n/v, fainting) - need to obtain records from PCP [facility]. Food Allergies: No Current Physical Activity: Nothing - plans to start swimming this week Diet Recall [place] (100kcal) + Activia Light - 60kcal Atkins [...] post-surgery diet progression. 4. Call or send [employer] message to dietitian with any questions. Contact information was provided. Follow up with dietitian via telephone 1 week after beginning water exercises for weight ch addie. Yuli Childs RD, [facility], [place] Pager# [phone] Rossana Espinoza MS, RD Pgr #[phone] documented in this enco unter Plan of [...] Rd | | | | | | [place] | | | | | | [address] | | | | | | [phone] | | | | | | | | +--------+ + + + + | 08/19/ | Surgery | Surgery | Chilo, | OPEN VENTRAL HERNIA | | 2019 | | | MD Demond Rec[address] | REPAIR WITH | | | | | [address] | BIOLOGICAL MESH | | | | | [place] | | | | | | [address] | | | | | | [phone] | | | | | | | | +--------+ + + + + | 09/15/ | Office | Cardiology | Randell Franks, | | | 2019 | Visit | | [address] | | | | | | [place], [place] | | | | | | [address] | | | | | | [phone] | | | | | | | | +--------+ + + + + documented as of this encounter Procedures + +--------+ + + + | Procedure Name | Priori | Date/Time | Associated Diagnosis | Comments | | | ty | | | | + +--------+ + + + | [place] MNT RE-ASSESSMNT | Routin | 12/27/2014 | Morbid obesity | | | X15MIN | e | 8:17 AM | ([facility]) Diabetes | | | | | PDT | mellitus with | | | | | | insulin therapy | | | | | | ([facility]) | | + +--------+ + + + documented in this encounter Visit Diagnoses + + | Diagnosis | + + | Morbid obesity ([facility]) - Primary Morbid obesity | + + | Diabetes mellitus with insulin therapy ([facility]) | + + documented in this encounter
--- OUTSIDE RECORDS SUMMARY | ~2019-06-25 | XMS | Encounter Summary ---
Demographics + + + | Address | [address] | | | [place] [address] | + + + | Home Phone [...] [place], [place] | | | | | [address] | | + + + + + | Ellie Vang | ECON | Unknown | | + + + + + Care Team Providers + +------+ + | Care Suspect Artist Supervisor Name | Role | Phone | [...] Rd | | | | | | [place], [place] | | | | | | [address] | | | | | | [phone] | | | | | | | | +--------+ + + + + | 08/19/ | Surgery | Surgery | Chilo, | OPEN VENTRAL HERNIA | | 2019 | | | MD Jorje [address] | REPAIR WITH | | | | | [address] | BIOLOGICAL MESH | | | | | [place], [place] | | | | | | [address] | | | | | | [phone] | | | | | | | | +--------+ + + + + | 09/15/ | Office | Cardiology | Randell Franks, | | | 2019 | Visit | | [address] | | | | | | [place], [place] | | | | | | [address] | | | | | | [phone] | | | | | | | | +--------+ + + + + documented as of this encounter Visit Diagnoses Not on filedocumented in this encounter"
--- OUTSIDE RECORDS SUMMARY | ~2019-06-25 | XMS | Encounter Summary ---
Demographics + + + | Address | [address] | | | [place] [address] | + + + | Home Phone [...] [place], [place] | | | | | [address] | | + + + + + | Ellie Vang | ECON | Unknown | | + + + + + Care Team Providers + +------+ + | Care Optometry Doctor Name | Role | Phone | + [...] on | Center at [facility] [address] | LINE ASSIGNER [address] | | | | | [place] | [facility] [address] | | | | | Mailcode: Center | [place], [place] | | | | | Health and | [address] | | | | | [facility] | [phone] | | | | | [place], [place] | | | | | | [address] | | | | | | [phone] | | | +--------+ + + + [...] Rd | | | | | | [place], [place] | | | | | | [address] | | | | | | [phone] | | | | | | | | +--------+ + + + + | 08/19/ | Surgery | Surgery | Chlio, | OPEN VENTRAL HERNIA | | 2019 | | | MD Jorje [address] | REPAIR WITH | | | | | [address] | BIOLOGICAL MESH | | | | | [place], [place] | | | | | | [address] | | | | | | [phone] | | | | | | | | +--------+ + + + + | 09/15/ | Office | Cardiology | Randell Franks, | | | 2019 | Visit | | [address] | | | | | | [address] [place], [place] | | | | | | [address] | | | | | | [phone] | | | | | | | | +--------+ + + + + documented as of this encounter Visit Diagnoses Not on filedocumented in this encounter"
--- OUTSIDE RECORDS SUMMARY | ~2019-06-25 | XMS | Encounter Summary ---
Demographics + + + | Address | [address] | | | [place] [address] | + + + | Home Phone [...] [place], [place] | | | | | [address] | | + + + + + | Ellie Vang | ECON | Unknown | | + + + + + Care Team Providers + +------+ + | Care Digital Ad Trafficker Name | Role | Phone | + [...] History of | Ronna, ACNP | [address] | | | | | Nilesh-en-Y | [address] | [address] | | | | | gastric | [address] | [address] | | | | | bypass | [place], [place] | Mailcode: | | | | | Ventral | [address] | [id number] | | | | | hernia | Phone: | [facility] | | | | | without | [phone] | [address] | | | | | obstruction | Fax: | [place], | | | | | or gangrene | [phone] | [place] [address] | | | | | Mixed | | Phone: | | | | | hyperlipidem | | [phone] | | | | | ia Diabetes | | Fax: | | | | | mellitus | | [phone] | | | | | type 2 [...] | | | | | | | FL UPPER GI | | | | | | | ENDOSCOPY,BI | | | | | | | OPSY [place] | | | | | | | [...] | | [address] | Ave [place], [place] | (Primary Dx); | | | | Mailcode: Center | [address] | Ventral hernia | | | | for Health and | [phone] | without obstruction | | | | Healing, [address] | | or gangrene; 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 documented in this encounter Progress Notes Ronna Clarke, KAIN - 05/27/2018 3:05 PM PDTFormatting of this [...] tongue once daily., Disp: , Rfl: CALCIUM [id number] ORAL, Take 2 tablets by mouth two [...] of 70 and over in adult ([facility]) Myalgia and myositis Nausea Neck pain Numbness Osteoarthritis of knee Palpitations Pneumonia Shortness of breath Staphylococcal infection Stroke ([facility]) TIA (transient ischemic attack) due to Bromocriptine Tinea corporis UTI (urinary tract infection) Past Surgical History Procedure Laterality Date Tonsillectomy and adenoidectomy Appendectomy, open 2010 Umbilical hernia repair 2010 Treatment of ankle fracture with screws remaining Incision and drainage of wound abscess x2 midline transverse wound s/p open appendectomy 2010 Ventral hernia repair 10/2012 Dr. Andie Brian Incisional hernia repair 03/01/2015 [facility]/ Dr. Cantu. Primary fascial closure and scar excision Lap gastric byp, and nilesh-en-y gastroenterostomy w/ nilesh limb 150 cm or less [facility] Social History Social History Marital status: Single Spouse name: N/A Number of children: 1 Years of education: N/A Occupational History disabled None Social History Main Topics Smoking status: Former Smoker Smokeless tobacco: Never Used Alcohol use No Drug use: No Sexual activity: Not on file Social History Narrative Updated 11/09/15 She lives in [place] with her mother and her sister (also her caregiver) lives in an apa rtment/duplex below. She has 2 grandchildren (age 4 and 7) who live with her daughter and son-in-law Her boyfriend lives in [place] HFpEF, DM2, HTN, Sleep Apnea (unable to [...] program here and refer her to our wellness specialist who also has expertise in physical [...] POC and will call or send Camila zhang if any issues. Start time 15:20, end time 15:45. I spent a total of 25 minutes face to face with this pat ient. Over 50% of visit was in counseling. ~ 15 minutes of additional time spent reviewing chart prior to visit and documenting after this visit. Ronna SANTOSP TRAINING COORDINATOR Bariatric Surgery Nurse Practitioner [facility] | [address] | [place], [place] | [address] | documented in this e ncounter Plan [...] [place] | | | | | | [address] | | | | | | [phone] | | | | | | | | +--------+ + + + + | 08/19/ | Surgery | Surgery | Chilo | OPEN VENTRAL HERNIA | | 2019 | | | MD [address]ond [address] | REPAIR WITH | | | | | [address] | BIOLOGICAL MESH | | | | | [place] | | | | | | [address] | | | | | | [phone] | | | | | | | | +--------+ + + + + | 09/15/ | Office | Cardiology | Randell Franks, | | | 2019 | Visit | | [address] | | | | | | [place], [place] | | | | | | [address] | | | | | | [phone] | | | | | | | | +--------+ + + + + documented as of this encounter Results X-RAY MIRIAM CASTELLON (06/07/2018 9:47 AM PST) + + | Specimen | + + | | + + + + + | Narrative | Performed At | + + + | EXAM: Esophagram with snow removal/plowing radiograph HISTORY: RYGB 03/01/2018, | [facility] | | vomiting/pain ever since COMPARISON: 04/27/2018 CT TECHNIQUE: | RADIOLOGY VOICE | | Pediatric Rn radiograph was performed. Single contrast exam of the esophagus, | RECOGNITION 2 | | gastric pouch, and gastrojejunostomy in upright positioning. | | | Radiation dose reduction technique was maximized where appropriate | | | using pulsed fluoroscopy and fluoro-store images. Fluoro Time 57 | | | second(s) FINDINGS: Pediatric Rn shows stone in the upper pole of [...] AM PST EXAM: Esophagram | | with snow removal/plowing radiograph HISTORY: RYGB 03/01/2018, vomiting/pain ever since COMPARISON: | | 04/27/2018 CT TECHNIQUE: Pediatric Rn radiograph was performed. Single contrast exam of the | | esophagus, gastric pouch, and gastrojejunostomy in upright positioning. Radiation dose | | reduction technique was maximized where appropriate using pulsed fluoroscopy and | | fluoro-store images. Fluoro Time 57 second(s) FINDINGS:Pediatric Rn shows stone in the upper | | [...] | + + + + + | [facility] | [address] | [place] [address] | | | SERVICES, CORE | CLARENCE [...] | [facility] | | considered for monitoring termite inspector glycemic control in patients with: | LABORATORY [...] | + + + + + | [facility] | [address] | [place] [address] | | | SERVICES, SPECIAL | PARK [...] | | | | | determined by [employer] | | | | | | Laboratories. See | | | | | | Compliance Statement B: | | | | | | [employer]/CSPerformed | | | | | | by [employer],[address] | | | | | | Liliana MartinezS[facility],[place] | | | | | | [address] | | | | | | [phone][employer]. | | | | | | [facility] medical centerIsmael MD, | | | [...] [facility] | [address] | [place], [place] | | | [facility] | | [address] | | + + + + + [...] | | | LABORATORY | | | TOGOLESE | | | SERVICES, | | | [...] [facility] | [address] | [place] [address] | | | SERVICES, CORE | PARK [...] [facility] | [address] | [place] [address] | | | SERVICES, CORE | PARK [...] | + + + + + | [facility] | [address] | [place] [address] | | | SERVICES, CORE | PARK [...] [facility] | [address] | [place] [address] | | | SERVICES, CORE | PARK [...] | | LABORATORY | | | SERVICES, LYDIA | + + + + + + + + | Performing | Address | City/State/Zipcode | Phone Number | | Organization | | | | + + + + + | [facility] | [address] | [place] [address] | | | SERVICES, CORE | PARK [...] | + + + + + | [facility] | [address] | [place] [address] | | | SERVICES, LYDIA | CLARENCE [...]
--- OUTSIDE RECORDS SUMMARY | ~2019-06-25 | XMS | Encounter Summary ---
Demographics + + + | Address | [address] | | | [place] [address] | + + + | Home Phone [...] [place], [place] | | | | | [address] | | + + + + + | Ellie Vang | ECON | Unknown | | + + + + + Care Team Providers + +------+ + | Care Rn Ostomy Name | Role | Phone | + [...] | | 2 diabetes | JEAN, | [place], [place] | | | | | mellitus | [place] [address] | [address] | | | | | without | Phone: | Phone: | | | | | complication | [phone] | [phone] | | | | | (HCC) | Fax: | Fax: | | | | | Procedures | [phone] | [phone] | | | | | NM EST | | | | | | [...] | 2018 | Visit | Preventive at [facility] | [address] | mellitus without | | | | [address] | Ave [facility] [place] | complication, with | | | | Mailcode: [facility] | [address] | long-term current | | | | [facility] | [phone] | use of insulin (HCC) | | | | and Healing, | | (Primary Dx); | | | | Building 1 | | Morbid obesity with | | | | [place], [place] | | BMI of 70 and over, | | | | [address] | | adult (HCC) | | | | [phone] | | | +--------+---------+ + + + [...] 04/14/2013 Priority: 3 Hypoventilation associated with obesity ([facility]) 06/16/2013 Priority: 4 AMARA (obstructive sleep apnea) 04/14/2013 Priority: 4 Overview Note: Cannot tolerate CPAP Severe Morbid obesity ([facility]), BMI 88 11/12/2012 Priority: 4 Overview Note: Lifetime max: 495 lbs Phentermine started Type 2 diabetes mellitus ([facility]) 04/14/2013 Priority: 5 Iron deficiency anemia due to chronic blood loss 11/11/2015 Priority: 6 Overview Note: Ferritin 18 on 10/2015 Hypoalbuminemia (no proteinuria, need to rule out synthetic, nutrition, loss) 6 Priority: 6 Hypothyroidism 08/28/2014 Priority: 8 Morbid obesity with BMI of 70 and over, adult ([facility]) 02/02/2017 Chronic diastolic heart failure (HCC) 02/02/2017 Immobility 02/02/2017 Severe muscle deconditioning 02/02/2017 Personal history of DVT (deep vein thrombosis) 02/02/2017 History of pulmonary embolism 02/02/2017 AMARA treated with BiPAP 02/02/2017 Benign essential HTN 02/02/2017 Diabetes mellitus type 2 without retinopathy ([facility]) 02/02/2017 Hyperlipidemia 02/02/2017 Ventral hernia without obstruction [...] exertion) 11/06/2015 Diabetes mellitus with insulin therapy ([facility]) 12/27/2014 Abdominal pain 02/07/2014 Migraine headache 12/05/2013 [...] 1 tablet by mouth once daily CALCIUM CRB&EPY-F7-ANG20-GENIS ORAL Take 2 tablets by mouth two [...] jeart failure is manag ed by her email marketing processor and she was seen by the bariatric surgery group and is now back on tr [facility] for gastric bypass in the upcoming year. [...] is currently being managed well by her Field Software Engineer with diuretics and main tenance of her [...] management of her heart failure by her Field Software Engineer 3) Check A1c, lipids 4) Await bariatric [...] Rd | | | | | | [place], [place] | | | | | | [address] | | | | | | [phone] | | | | | | | | +--------+ + + + + | 08/19/ | Surgery | Surgery | Chilo | OPEN VENTRAL HERNIA | | 2019 | | | MD Demond Recinos [address] | REPAIR WITH | | | | | [address] | BIOLOGICAL MESH | | | | | [place], [place] | | | | | | [address] | | | | | | [phone] | | | | | | | | +--------+ + + + + | 09/15/ | Office | Cardiology | Randell Franks, | | | 2019 | Visit | | [address] | | | | | | [place], [place] | | | | | | [address] | | | | | | [phone] | | | | | | | [...] + + | [facility] [employer] | [address] | [place], [place] | | | SERVICES, LIPID | [address] | [address] | | + + + + + [...] | [facility] | | considered for monitoring correction glycemic control in patients with: | LABORATORY [...] | [facility] | [address] [facility] | [place] [address] | | | SERVICES, SPECIAL | [address] | | | | IMM + COAG | | | | + + + + + documented in this encounter Visit Diagnoses + + | Diagnosis | + + | Type 2 diabetes mellitus without complication, with long-term current use of insulin | | ([facility]) - Primary | + + | Morbid obesity with BMI of 70 and over, adult ([facility]) | + + documented in this encounter
--- OUTSIDE RECORDS SUMMARY | ~2019-06-25 | XMS | Encounter Summary ---
Demographics + + + | Address | [address] | | | [place] [address] | + + + | Home Phone [...] + | Katalina Padilla | ECON | [address] | | | | | [place], [place] | | | | | [address] | | + + + + + | Ellie Vang | ECON | Unknown | | + + + + + Care Team Providers + +------+ + | Care Lobby Attendant Name | Role | Phone | [...] | [facility] | | | with LEGAL DIRECTOR | | hypertension | [address] | [address] | | | | | Right | [address] | [address] | | | | | heart | [place], [place] | Mailcode: | | | | | failure | [address] | Center for | | | | | ([facility]) Type | Phone: | Health and | | | | | 2 diabetes | [phone] | Healing, | | | | | mellitus | Fax: | Building 2 | | | | | without | [phone] | [place], [place] | | | | | complication | | [address] | | | | | , with | | Phone: | | | | | long-term | | | | | | | current use | | Fax: | | | | | of insulin | | [phone] | | | | | ([facility]) | | | | | | [...] | 2018 | Visit | Center at [facility] [address] | [address] | BMI of 70 and over, | | | | [address] | [place], [place] | adult ([facility]) (Primary | | | | Mailcode: Center | [address] | Dx); Diabetes | | | | for [employer] and | [phone] | mellitus type 2 | | | | [facility], [address] | | without retinopathy | | | | [place], [place] | | ([facility]); | | | | [address] | | Intertriginous | | | | [phone] | | candidiasis; PCOS | | | | | | (polycystic ovarian | | | | | | syndrome); AMARA | | | | | | treated with BiPAP; | | | | | | Chronic diastolic | | | | | | heart failure ([facility]); | | | | | | [...] 10/30/2017 10:00 AM PDTPlease visit with our [facility] Manager Investment Banking (RD) for instructions about your Bariatric diet, assistance with calorie c ounts, tips and tricks for working with your diet restrictions, and recipes after bariatric surgery. Daily yogurt; even just 1 tablespoon twice a day will provide enough probiotics to optimize digestion. Try to use a high-quality, probiotic-dense yogurt (eg Zaria's, Kobifield, Stacie lala Kefir, Commercial Truck Driver Duke's Sudanese Yogurt). Remember to chew your food well, [...] to the healing stomach. There are also nursing home complications of poor wound healing and gastric [...] Dr. Andie Brian Incisional hernia repair 03/01/2015 [facility]/ Dr. Cantu. Primary fascial closure and [...] 1 tablet by mouth once daily CALCIUM CRB&CWW-A9-FAM85-GENIS ORAL Take 2 tablets by mouth two [...] History Narrative Updated 11/09/15 She lives in [place] with her mother and her sister (also her caregiver) lives in an artment/duplex below. She has 2 grandchildren (age 4 and 7) who live with her daughter and son-in-law Her boyfriend lives in [place] HFpEF, DM2, HTN, Sleep Apnea (unable to [...] here and refer her to our account support specialist who also has expertise in [...] period, a 1-5% risk o f serious aktey-operative complications, a 4-5% rate of reoperation over the terminal computer operator (i.e. years), as well as other late [...] and may approach 5%. We reviewed the [facility] consent form. We discussed that we [...] Rd | | | | | | [place], [place] | | | | | | [address] | | | | | | [phone] | | | | | | | | +--------+ + + + + | 08/19/ | Surgery | Surgery | Chilo, | OPEN VENTRAL HERNIA | | 2019 | | | MD Jorje [address] | REPAIR WITH | | | | | [address] | BIOLOGICAL MESH | | | | | [place], [place] | | | | | | [address] | | | | | | [phone] | | | | | | | | +--------+ + + + + | 09/15/ | Office | Cardiology | Randell Franks, | | | 2020 | Visit | | [address] | | | | | | [place], [place] | | | | | | [address] | | | | | | [phone] | | | | | | | [...] | | | over, adult ([facility]) | | | | | | 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| | 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 ([facility]) | | | | | | AMARA treated with | | | | | | BiPAP Chronic | | | | | | diastolic heart | | | | | | failure ([facility]) | | | | | | [...] | | | | | determined by [facility] | | | | | | [facility]. See | | | | | | Compliance Statement B: | | | | | | WorkTouch/CSPerformed | | | | | | by [id number],[address] | | | | | | [facility] WaySTEW[facility],AL | | | | | | [address] | | | | | | [phone] | | | | | | Ismael [...] [facility] | [address] | [place], [place] | | | UNIV P[facility] - INTFC | | [address] | | + + + + + [...] | | | LABORATORY | | | CUBAN | | | SERVICES, | | | [...] | [facility] | [address] | [place] [address] | | | SERVICES, CORE | PARK [...] NKECHI ROBERTS | [address] | [place] [address] | | | SERVICES, CORE | PARK [...] + | [facility] | [address] | [place] [address] | | | SERVICES, CORE | CLARENCE [...] + + | [facility] | [address] | [place] [address] | | | SERVICES, CORE | PARK [...] [facility] | [address] | [place] [address] | | | SERVICES, CORE | PARK [...] + | [facility] | [address] | [place] [address] | | | SERVICES, LYDIA | CLARENCE [...]
--- OUTSIDE RECORDS SUMMARY | ~2019-06-25 | XMS | Encounter Summary ---
Demographics + + + | Address | [address] | | | [place] [address] | + + + | Home Phone [...] [place], [place] | | | | | [address] | | + + + + + | Ellie Vang | ECON | Unknown | | + + + + + Care Team Providers + +------+ + | Care Lead Software Developer Name | Role | Phone | + +------+ + | Faid Goodrich DO | PCP | | + +------+ + Reason for Visit + + + | Reason | Comments | + + + | Medical Records | Letter from caser up. | | Review | | + + + Encounter Details +--------+ + + + + | Date | Type | Department | Care Team | Description | +--------+ + + + + | 11/08/ | Abstract | Digestive Health | Shereen Georges, | Medical Records | | 2015 | | Center at [facility] [address] | [facility] [address] | Review (Letter from | | | | [address] | [place], [place] | caser up. ) | | | | Mailcode: [place] | [address] | | | | | [facility] and | [phone] | | | | | [address] [place] [address] | | | | | | [place], [place] | | | | | | [address] | | | | | | [phone] | | | +--------+ + + + [...] Rd | | | | | | [place] | | | | | | [address] | | | | | | [phone] | | | | | | | | +--------+ + + + + | 08/19/ | Surgery | Surgery | Chilo, | OPEN VENTRAL HERNIA | | 2020 | | | MD [address] | REPAIR WITH | | | | | [address] | BIOLOGICAL MESH | | | | | [place] | | | | | | [address] | | | | | | [phone] | | | | | | | | +--------+ + + + + | 09/15/ | Office | Cardiology | Randell Franks, | | | 2019 | Visit | | [address] | | | | | | [place], [place] | | | | | | [address] | | | | | | [phone] | | | | | | | | +--------+ + + + + documented as of this encounter Visit Diagnoses Not on filedocumented in this encounter"
--- OUTSIDE RECORDS SUMMARY | ~2019-06-25 | XMS | Encounter Summary ---
Demographics + + + | Address | [address] | | | [place] [address] | + + + | Home Phone [...] + | Katalina Padilla | ECON | [address] | | | | | [place], [place] | | | | | [address] | | + + + + + | Ellie Vang | ECON | Unknown | | + + + + + Care Team Providers + +------+ + | Care Electrical Products Engineer Name | Role | Phone | [...] | | 2017 | | Preventive at [facility] | [address] | | | | | [address] | Ave [place], [place] | | | | | Mailcode: [facility] | [address] | | | | | [facility] | [phone] | | | | | and [facility], | | | | | | Building [address] | | | | | | [place], [place] | | | | | | [address] | | | | | | [phone] | | | +--------+ + + + [...] Rd | | | | | | [place], [place] | | | | | | [address] | | | | | | [phone] | | | | | | | | +--------+ + + + + | 08/19/ | Surgery | Surgery | Chilo, | OPEN VENTRAL HERNIA | | 2019 | | | MD [address] | REPAIR WITH | | | | | [address] | BIOLOGICAL MESH | | | | | [place], [place] | | | | | | [address] | | | | | | [phone] | | | | | | | | +--------+ + + + + | 09/15/ | Office | Cardiology | Randell Franks, | | | 2019 | Visit | | MD [address] | | | | | | [place], [place] | | | | | | [address] | | | | | | [phone] | | | | | | | | +--------+ + + + + documented as of this encounter Visit Diagnoses Not on filedocumented in this encounter"
--- OUTSIDE RECORDS SUMMARY | ~2019-06-25 | XMS | Encounter Summary ---
Demographics + + + | Address | [address] | | | [place] [address] | + + + | Home Phone [...] + | Katalina Padilla | ECON | [address] | | | | | [place], [place] | | | | | [address] | | + + + + + | Ellie Vang | ECON | Unknown | | + + + + + Care Team Providers + +------+ + | Care Manager Financial Name | Role | Phone | + [...] + + | 02/07/ | Hospital | [address] | [place], | | | 2014 - | Encounter | [address] | [address] | | | | | [place], [place] | [address] | | | 02/08/ | | [address] | [place], [place] | | | 2013 | | [phone] | [address] | | | | | | [phone] | | | | | | | [...] the resident s note. PRADIP STARR MD [facility] [address]A [address] [place] [address] orrMaryam hill MD - 1:05 PM PDT [facility] DEPARTMENT OF SURGERY EMERGENCY GENERAL SURGERY [...] Type 2 DM who presented to the [facility] ED ([place], [place]) on 02/06/14, with a week hi story of RUQ abdominal pain that radiates to her back. There, she was found to have leukocyt osis and multiple tiny, mobile stones, + sonographic Peterson's sign on abdominal ultrasound, concerning for acute cholecystitis. She was givenIV antibiotics (cipro, flagyl) and pain med s, then transferred to [facility] by [facility] for further care. Ms. Romero endorsed 7/10 [...] with Trauma Emergency General Surgery at [facility] In 4 weeks. (follow up in 2-4 weeks ) Contact information [address] [facility] Mailcode: L223a Lionelyiarmen [address] [place] [address] Thank you for the [...] the resident s note. PRADIP STARR MD [facility] [address]A [address] [facility] [address] [place] [address] orrMaryam hill MD - 5:17 AM PDT [facility] DEPARTMENT OF SURGERY EMERGENCY GENERAL SURGERY Division [...] tolerated MARYAM RHODES MD PGY-1, General Surgery [phone] pager number [facility] [place] A [address] [facility] [address] documented in this encoun ter Plan of [...] Rd | | | | | | [place], [place] | | | | | | [address] | | | | | | [phone] | | | | | | | | +--------+ + + + + | 08/19/ | Surgery | Surgery | Chilo, | OPEN VENTRAL HERNIA | | 2019 | | | MD Jorje [address] | REPAIR WITH | | | | | [address] | BIOLOGICAL MESH | | | | | [place], [place] | | | | | | [address] | | | | | | [phone] | | | | | | | | +--------+ + + + + | 09/15/ | Office | Cardiology | Randell Franks, | | | 2019 | Visit | | [address] | | | | | | Ave [place], [place] | | | | | | [address] | | | | | | [phone] | | | | | | | [...] AMES | [address] | [place], [place] | | | LÓPEZ POINT OF CARE | [address] | [address] | | | TESTS | | | [...] MARQUAM | [address] | [place], [place] | | | JUSTINE DAWN OF CARE | [facility] | [address] | | | TESTS | | | [...] MARQUAM | [address] | [place], [place] | | | JUSTINE DAWN OF JAKY | [facility] | [address] | | | TESTS | | | [...] AMES | [address] | [place], [place] | | | JUSTINE DAWN OF CARE | [address] | [address] | | | TESTS | | | [...] [facility] | [address] | [place] [address] | | | SERVICES, | [address] [...] + | [facility] | [address] | [place] [address] | | | SERVICES, | [address] [...] [facility] | [address] | [place], [place] | | | JUSTINE DAWN OF JAKY | [address] | [address] | | | TESTS | | | [...] [facility] | [address] | [place] [address] | | | LYDIA RANGEL | CLARENCE [...] [facility] | [address] | [place] [address] | | | SERVICES, CORE | PARK [...] | + + + + + | [facility] | [address] | [place] [address] | | | SERVICES, CORE | PARK [...] + | [facility] | [address] | [place] [address] | | | SERVICES, CORE | CLARENCE [...] + + + + | [facility] | [address] | [place] [address] | | | SERVICES, CORE | CLARENCE [...] (H) | 60 - 99 mg/dL | [facility] [...] AMES | [address] | [place], [place] | | | JUSTINE DAWN OF CARE | [address] | [address] | | | TESTS | | | [...] pattern. | | | | | | Trial Justice | | | | | | sections [...] + + | [facility] | [address] | [place] [address] | | | PATHOLOGY | [address] [...]
--- OUTSIDE RECORDS SUMMARY | ~2019-06-25 | XMS | Clinical Summary ---
Demographics + + + | Address | [address] | | | [place] [address] | + + + | Home Phone [...] Author + + + | Author | [facility] | + + + | Organization | [facility] | + + [...] [place], [place] | | | | | [address] | | + + + + + | Ellie Vang | ECON | Unknown | | + + + + + Care Team Providers + +------+ + | Care Main Galley Scullion Name | Role | Phone | + +------+ + | Kenyatta Hylton MD | PCP | | + +------+ + Source Comments NKECHI is fully live on both EpicCare Ambulatory and EpicCare InPatient.[facility] Allergies + + + + + [...] 0 | | | Activ | | [id number]-[id number]-FYP25-GEN | mouth two times | | | | | e | | IS ORAL | daily. | | | | | | + + + +---------+------+------+-------+ | atenolol 50 mg | Take 50 mg by mouth | | 0 | 11/ | | Activ | | oral tablet | once daily at | | | 720 | | e | | | bedtime. [...] 1 capsule by | | 0 | 110 | | Activ | | (VITAMIN D2) [...] tablet by | 360 | 3 | 12/25 | | Activ | | oral tablet | mouth two times | tablet | | 11/13 | | e | | | daily. [...] tablet by | 90 | 1 | 07/ | | Activ | | mg oral [...] | area two times | | | 04/15 | | e | | powderIndications: | [...] 1 tablet by | | 0 | 10/1 | | Activ | | 8.6 mg oral tablet | mouth once daily. | | | 9/20 | | e | | | | | | 19 | | | + + +--------+---+------+---+-------+ | enoxaparin 120 | INJECT 1 SYRINGE | | 0 | 10/3 | | Activ | | mg/0.8 mL | DIRECTED EVERY 12 | | | 0/20 | | e | | subcutaneous syringe | HOURS | | | 19 | | | + + +--------+---+------+---+-------+ | warfarin 5 mg oral | Take 5 mg by mouth | [...] | +--------+ + + + + | 06/06/ | Telephone | Surgery | Chilo, | | | 2018 | | | MD Jorje | | +--------+ + + + + | 06/02/ | Anesthesia | Pre-operative | Aide Birmingham RN | | | 2019 | Event | Medicine | | | +--------+ + + + + | 06/02/ | Telephone-S | Pre-operative | | Pre-operative | | 2019 | cheduled | Medicine | | evaluation | +--------+ + + + + | 06/02/ | Telephone | Social Work | Anastacia Almaraz | housing accomodation | | 2019 | | | | (RPV approved) | +--------+ + + + + | 05/20/ | Telephone | Surgery | Analisa Woo Other | | 2019 | | | MD Jorje | | +--------+ + + + + | 05/14/ | Pharmacy | | | | | 2019 | Visit | | | | +--------+ + + + + | 05/13/ | Emergency | Emergency Medicine | Nay Joe | | | 2019 - | | | MD Jordy | | | | | | | | | 05/14/ | | | | | | 2018 | | | | | +--------+ + + + + | 05/13/ | Office | Plastic Surgery | Archie Ybarra MD | Excess skin of | | 2018 | Visit | | | abdomen (Primary Dx) | +--------+ + + + + | 05/13/ | Travel | | | | | 2018 | | | | | +--------+ + + + + | 05/05/ | Office | Surgery | Chilo | Ventral hernia | | 2018 | Visit | | MD Jorje | without obstruction | | | | | | or gangrene (Primary | | | | | | Dx) | +--------+ + + + + | 05/05/ | Travel | | | | | 2018 | | | | | +--------+ + + + + | 04/07/ | Hospital | | Tal Mcneil | | | 2018 | Encounter | | MD Barb | | +--------+ + + + + | 04/07/ | Travel | | | | | 2018 | | | | | +--------+ + + + + | 04/05/ | Abstract | Surgery | Clinic, Surgery | Medical Records | | 2018 | | | | Review | +--------+ [...] Rd | | | | | | [place], [place] | | | | | | [address] | | | | | | [phone] | | | | | | | | +--------+ + + + + | 08/19/ | Surgery | Surgery | Chilo | OPEN VENTRAL HERNIA | | 2019 | | | MD Demond Recinos | REPAIR WITH | | | | | [address] | BIOLOGICAL MESH | | | | | [place], [place] | | | | | | [address] | | | | | | [phone] | | | | | | | | +--------+ + + + + | 09/15/ | Office | Cardiology | TinyAly brown, | | | 2019 | Visit | | [address] | | | | | | [place], [place] | | | | | | [address] | | | | | | [phone] | | | | | | | [...] Sterile | | | [employer]OC[employer]ATES | | 2018 | C60A / | | Seamguard Latex Free | | | | | | | | Disposable Blue Gold Green - | | | | | | /[id number] | | [id number]: Qty: 1 on | | | | | | 525 | | 03/01/2018 by Ion Pandey | | | | | | | | MD Vinicius at [facility] | | | | | | [...] - | | | | | | /[id number] | | [id number]: Qty: 1 on | | | | | | 173 | | 03/01/2018 by Ion Pandey | | | | | | | | MD Vinicius at [facility] | | | | [...] - [place] | [address] | [place], [place] | | | [place] [address] OF CARE | [address] | [address] | | | TESTS | | | [...] [facility] | [address] | [place] [address] | | | SERVICES, CORE | [address] | | | + + + + + COMPLETE METABOLIC SET (NA,K,CL,CO2,BUN,CREAT,GLUC,CA,AST,ALT,BILI TOTAL,ALK PHOS,ALB,PROT TOTAL) (05/14/2019 4:33 AM PDT)Only the most recent of 2 results within the time period is included. [...] | | | LABORATORY | | | [facility] | | | SERVICES, | | | [...] MDRD equation recommended by the National | [facility] | | Kidney Disease Education Program. Estimated [...] | + + + + + | [facility] | [address] [facility] [facility] | [place] [address] | | | SERVICES, [facility] [...] [facility] | [address] | [place] [address] | | | SERVICES, CORE | PARK [...] | + + + + + | [facility] | [address] | [place] [address] | | | SERVICES, CORE | [address]ARENCE [...] 5-6 weeks | | | 850 - 17929 6-7 weeks | | | 4000 - 529317 7-12 weeks | | | 08213 - 766972 12-16 weeks | | | 44021 - 635842 16-29 | | | weeks 1400 - 00016 | | | 29-41 weeks 940 - 83945 | | | This test has not been approved for use as a tumor marker in | | | males or females. | | + + + + + + + + | Performing | Address | City/State/Zipcode | Phone Number | | Organization | | | | + + + + + | [facility] | [address] | [place] [address] | | | SERVICES, CORE | [address] | | | + + + + + ED INFORMATION EXCHANGE (05/13/2019 5:14 PM PDT) + + | Specimen | + + | | + + + + + | Narrative | Performed At | + + + | COLLECTIVE?NOTIFICATION?05/13/2019 17:13?DYLAN ROMERO?MRN: | COLLECTIVE | | [id number] Criteria Met Has Guidelines PDMP Security | MEDICAL | | and Safety No recent Security Events currently on file ED Care | TECH[employer]OLOGIES | | Guidelines from [facility] - [place] Last Updated: 12/06/18 9:53 AM | | | Care Coordination: Receiving mental health services with | | | [facility].? Please contact [facility] for mental health concerns.? | | | Sarah/Toni Centeno: [phone]? Kishan: [phone].? | | | These are guidelines and the provider should exercise clinical | | | judgment when providing care. Care History Medical/Surgical | | | 05/11/19 12:00 AM [facility] Patient is | | | currently established with [facility]. If patient is seen in | | | the ED during business hours. Please contact CHWs at [facility] | | | [facility]. Care Recommendation: This patient has had [...] 08/23/18 12:00 AM | | | [facility] PATIENT HAS A PCP APT TO ESTABLISH [...] 0 2019-04-13 BELBUCA 600 MCG FILM 57 HIPOLITO FERRERC 0 | | | 2019-04-12 BELBUCA 600 MCG FILM 3 BETZY BALDWIN PA-C 0 | | | 2019-04-09 SUDOGEST 30 MG TABLET 5 BERNARDO VERONICA, SHEET ROLLER OPERATOR 0 | | | 2019-03-30 SUDOGEST 30 MG TABLET 30 BERNARDO MARTIN, SHEET ROLLER OPERATOR 0 | | | 2019-03-20 ALPRAZOLAM 1 MG TABLET 60 WINSTON JEFFAS 4 0 2019-03-14 | | | BELBUCA 600 MCG FILM 58 KECIA ZAPIEN PA 0 2019 PHENTERMINE | | | 37.5 MG TABLET 90 ALY NORRIS MD 4 0 2019-02-21 ALPRAZOLAM 1 | | | MG TABLET 60 WINSTON SPAS 4 0 2019-02-11 BELBUCA 600 MCG FILM 56 | | | SUNNY COLINDRES MPAS 0 2019-01-31 PHENTERMINE 37.5 MG TABLET 30 | | | ALY NORRIS MD 4 0 2019-01-20 ALPRAZOLAM 1 MG TABLET 60 WINSTON | | | JEFFAS 4 0 2019-01-14 BELBUCA 600 MCG FILM 56 BETZY BALDWIN PA-C | | | 0 2019-01-05 BELBUCA 450 MCG FILM 48 BETZY BALDWIN PA-C 0 | | | 2019-01-02 PHENTERMINE 37.5 MG TABLET 30 ALY NORRIS MD 4 0 | | | 2018-12-24 BELBUCA 450 MCG FILM 24 HIPOLITO FERRERC 0 | | | 2018-12-03 PHENTERMINE 37.5 MG TABLET 30 ALY NORRIS MD 4 0 | | | 2018-11-26 [...] (12 mo.) Facility Visits | | | [facility] 1 [facility] 1 | | | [facility] 2 Total 4 Note: Visits indicate total | | | known visits. Recent Emergency Department Visit Summary Date | | | Facility City State Type Diagnoses or Chief Complaint May 13, 2019 | | | [facility] [place] Emergency | | | 10,800. A303 May 10, 2019 [facility] [place] | | | Emergency Nausea with vomiting, unspecified Solitary | | | pulmonary nodule Anxiety disorder, unspecified Ventral | | | hernia without obstruction or gangrene Unspecified abdominal | | | pain Diarrhea, unspecified Allergy status to oth | | | drug/meds/biol subst status Prsnl hx of TIA (TIA), and cereb | | | infrc w/o resid deficits Other computer terminal operator (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 | | | Allergy status to penicillin December 03, 2018 [facility] | | | Health [place]. [place] Emergency RIGHT LEG PAIN DUE TO FALL | | | Strain of unsp musc/tend at lower leg level, right leg, init Jul | | | 2018 [facility]. [place] Emergency Other skilled nursing | | | (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 Upper abdominal pain, unspecified | | | Bariatric surgery status Allergy status to oth drug/meds/biol | | | subst status Noninfective gastroenteritis and colitis, | | | unspecified Obesity, unspecified Anxiety disorder, | | | unspecified meterman (current) use of aspirin Allergy | | | status to penicillin Personal history of pulmonary embolism | | | Recent Inpatient Visit Summary No recorded inpatient visits. | | | Care Team Provider Specialty Phone Fax Service Dates Treva, | | | Rob Clinical Documentation Consultant/Unloader Mar 27, 2018 - | | | Current Bernard Hylton MD Internal Medicine: Pulmonary Disease | | | Aug 23, 2018 - Current Meijob This patient has | | | registered at the [facility] | | | Department For more information visit: | | | [email or web address] | | | [id number] [id number] PLEASE NOTE: 1. Any care recommendations [...] or completeness of information provided. ? 2019 [employer] | | | [employer]. - [email or web address] | | + + + + + | Procedure Note | + + | Service Account, Rtf Results Inbound - 05/13/2019 5:16 PM PDT Formatting of this | | note might be different from the original.COLLECTIVE?NOTIFICATION?05/13/2019 | | 17:13?DYLAN ROMERO? [facility] Has Guidelines PDMPSecurity and | | SafetyNo recent Security Events currently on fileED Care Guidelines from [facility] - | | [place] Updated: 12/06/18 9:53 AM Care Coordination:Receiving mental health | | services with [facility].? Please contact [facility] for mental health concerns.? | | Sarah/Toni Centeno: [phone]? Kishan: [phone].?These are guidelines | | and the provider should exercise clinical judgment when providing care.Care | | HistoryMedical/Amkwrflf20/16/19 12:00 AM [facility] Patient is currently | | established with [facility]. If patient is seen in the ED during business hours. | | Please contact CHWs at [facility].Care Recommendation:This patient has had 5 [...] clinical judgment when providing care.08/23/18 12:00 AM [facility] | [facility] PATIENT HAS A PCP [...] SUDOGEST 30 MG TABLET 5 BERNARDO MARTIN, SHEET ROLLER OPERATOR 0 2019-03-30 SUDOGEST 30 MG TABLET 30 | | BERNARDO MARTIN, SHEET ROLLER OPERATOR 0 2019-03-20 ALPRAZOLAM 1 MG TABLET 60 WINSTON JEFFAS 4 0 2019-03-14 | | BELBUCA 600 MCG FILM 58 JEFFREY ORR 0 2019 PHENTERMINE 37.5 MG TABLET 90 | | ALY NORRIS MD 4 0 2019-02-21 ALPRAZOLAM 1 MG TABLET 60 WINSTON JEFFAS 4 0 2019-02-11 | | BELBUCA 600 MCG FILM 56 JUNITO PEDRO 0 2019-01-31 PHENTERMINE 37.5 MG TABLET | | 30 ALY NORRIS MD 4 0 2019-01-20 ALPRAZOLAM 1 MG TABLET 60 WINSTON JEFFAS 4 0 | | 2019-01-14 BELBUCA 600 MCG FILM 56 BETZY BALDWIN PA-C 0 2019-01-05 BELBUCA 450 MCG | | FILM 48 BETZY BALDWIN PA-C 0 2019-01-02 PHENTERMINE 37.5 MG TABLET 30 LAY | | MD TINY 4 0 2018-12-24 BELBUCA 450 MCG FILM 24 BETZY BALDWIN PA-C 0 2018-12-03 | | PHENTERMINE 37.5 MG TABLET 30 ALY NORRIS MD 4 0 2018-11-26 BELBUCA 450 MCG [...] 0 E.D. Visit Count (12 mo.)Facility Visits [facility] | | [address] 1 [facility] 2 Total 4 Note: | | Visits indicate total known visits. Recent Emergency Department Visit SummaryDate | | Facility City State Type Diagnoses or Chief Complaint May 13, 2019 [facility] | | [facility] [place] Emergency 10,800. A303 May 10, 2019 [facility] | | [place] Emergency Nausea with vomiting, unspecified Solitary pulmonary nodule | | Anxiety disorder, unspecified Ventral hernia without obstruction or gangrene | | Unspecified abdominal pain Diarrhea, unspecified Allergy status to oth | | drug/meds/biol subst status Prsnl hx of TIA (TIA), and cereb infrc w/o resid deficits | | Other computer terminal operator (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 Allergy status to penicillin December 03, 2018 | | [facility] [place] Emergency RIGHT LEG PAIN DUE TO FALL Strain of | | unsp musc/tend at lower leg level, right leg, init Aug 22, 2018 [facility] | | [place] Emergency Other computer terminal operator (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 Upper abdominal pain, | | unspecified Bariatric surgery status Allergy status to oth drug/meds/biol subst | | status Noninfective gastroenteritis and colitis, unspecified Obesity, unspecified | | Anxiety disorder, unspecified [facility] (current) use of aspirin Allergy status | | to penicillin Personal history of pulmonary embolism Recent Inpatient Visit | | SummaryNo recorded inpatient visits. Care TeamProvider Specialty Phone Fax Service Dates | | Rob Tilley Clinical Documentation Consultant/Unloader Mar 27, 2018 - Current | | Bernard Hylton MD Internal Medicine: Pulmonary Disease Aug 23, 2018 - Current | | [employer]i patient has registered at the [facility] | | Emergency Department For more information visit: | | [email or web address] PLEASE | | NOTE: 1. Any care [...] completeness of information | | provided.? 2019 [email or web address]. - [email or web address] | |[facility] 3 | |Benzos 4 | |Opioids 7 | |Long Acting Opioids 0 | | | | | | | |E.D. Visit Count (12 mo.) | |Facility Visits | |[facility] 1 | |[facility] 1 | |[facility] 2 | |Total 4 | |Note: Visits indicate total known visits. | | | |Recent Emergency Department Visit Summary | |Date Facility City State Type Diagnoses or Chief Complaint | |May 13, 2019 [facility] [place] Emergency | | 10,800. A303 | | | |May 10, 2019 [facility] [place] Emergency | | Nausea with vomiting, unspecified | | Solitary pulmonary nodule | | Anxiety disorder, unspecified | | Ventral hernia without obstruction or gangrene | | Unspecified abdominal pain | | Diarrhea, unspecified | | Allergy status to oth drug/meds/biol subst status | | Prsnl hx of TIA (TIA), and cereb infrc w/o resid deficits | | Other skilled nursing (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 | | Allergy status to penicillin | | | |December 03, 2018 [facility] [place] Emergency | | RIGHT LEG PAIN DUE TO FALL | | Strain of unsp musc/tend at lower leg level, right leg, init | | | |Aug 22, [address] [facility] [place] [place] Emergency | | Other computer terminal operator (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 | | Upper abdominal pain, unspecified | | Bariatric surgery status | | Allergy status to oth drug/meds/biol subst status | | Noninfective gastroenteritis and colitis, unspecified | | Obesity, unspecified | | Anxiety disorder, unspecified | | [facility] (current) use of aspirin | | Allergy status to penicillin | | Personal history of pulmonary embolism | | | | | | | |Recent Inpatient Visit Summary | |No recorded inpatient visits. | | | |Care Team | |Provider Specialty Phone Fax Service Dates | |Rob Tilley Clinical Documentation Consultant/Unloader Mar 27, 2018 - Current | |Bernard Hylton MD Internal Medicine: Pulmonary Disease Aug 23, 2018 - Current | | | |[employer] | |This patient has registered at the [facility]artmen t | |For more information visit: [email or web address] | |PLEASE NOTE: | | 1. Any care recommendations and other clinical information are provided as guidelines or for historical purposes only, and providers should exercise their own clinical judgment whe n providing care. | | 2. You may only use this information for purposes of treatment, payment or health care o perations activities, and subject to the limitations of applicable [employer] Policies. | | 3. You should consult directly with the organization that provided a care guideline or o ther clinical history with any questions about additional information or accuracy or complet eness of information provided. | | | |? 2019 [email or web address]. - [email or web address] | + + + + + + + | Performing | Address | City/State/Zipcode | Phone Number | | Organization | | | | + + + + + | [facility] | [address], | [place], [place] | [phone] | | [employer] | [address] | [address] | | + + + + + MERID (04/07/2019 10:53 AM PDT) + + | Specimen | + + | | + + + + + | Narrative | Performed At | + + + | MRN: | [facility] | | [id number] Date: 04/07/2019Patient Name: Dylan Curtis #: | ENDOSCOPY | | [id number] of : 1975CSN: [id number] Type: | | | AmbulatoryRoom: Endo 5Procedure: Upper GI | | | endoscopyIndications: Generalized abdominal pain, Nausea | | | with vomitingProviders: TAL MCNEIL MD | | | (Doctor), BERNARDO BERNARD RN (Nurse), | | | EREN SLATER (Cylinder Press Operator Apprentice)Referring MD: KEREN Kilpatrick | | | RASTA ALLENGuadalupe County Hospitaldonya Provider: Medicines: | | | Midazolam 8 [...] | | | The [employer] [id number] Endoscope #[id number] | | | was introduced through the [...] | | | + +---------+ + + from Last 3 Months Insurance + +--------+ +--------+-------+---------+--------+ | Payer | Benefi | Subscriber | Effect | Phone | Address | Type | | | t Plan | ID | [place]lett | | | | | | / | | Dates | | | | | | Group | | | | | | + +--------+ +--------+-------+---------+--------+ | ELECTRICAL REPAIRER MEDICAID | ELECTRICAL REPAIRER | xxxxxxxx | | | | Medica [...] al/Fam | | 1975 | [phone] | [place] | | | mireya | | | 3 (Home) | [address] | + +--------+ +--------+ + + Advance [...]
--- OUTSIDE RECORDS SUMMARY | ~2019-06-25 | XMS | Encounter Summary ---
Demographics + + + | Address | [address] | | | [place] [address] | + + + | Home Phone [...] [place], [place] | | | | | [address] | | + + + + + | Ellie Vang | ECON | Unknown | | + + + + + Care Team Providers + +------+ + | Care Author'S Agent Name | Role | Phone | [...] | HA Roldan | | | with ADMINISTRATIVE ASSISTANT RECEPTIONIST | | hypertension | [address] | [address] | | | | | Right | [address] | [address] [place] | | | | | heart | [place], [place] | [place], | | | | | failure | [address] | [place] | | | | | ([facility]) Type | Phone: | [phone] | | | | | 2 diabetes | [phone] | | | | | | mellitus | Fax: | | | | | | without | [phone] | | | | | | complication | | | | | | | , with | | | | | | | long-term | | | | | | | current use | | | | | | | of insulin | | | | | | | ([facility]) | | | +--------+ + + + + + Encounter Details +--------+---------+ + + + | Date | Type | Department | Care Team | Description | +--------+---------+ + + + | 02/02/ | Office | Digestive Health | [address] | Morbid obesity with | | 2017 | Visit | Center at [facility] [address] | [address] | BMI of 70 and over, | | | | [address] | Lesly Gutiérrez [place], | adult ([facility]) (Primary | | | | Mailcode: Center | [place] [address] | Dx); Type 2 | | | | for Health and |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 | | | | Healing, [address] | | without | | | | [place], [place] | | complication, with | | | | [address] | | long-term current | | | | [phone] | | use of insulin | | | | | | ([facility]); Chronic | | | | | | diastolic heart | | | | | | failure ([facility]) | +--------+---------+ + + + Social History [...] of Visit: 10:03 to 10:30 (27 minutes znis-ke-oulg with patient) (1 hour ap point not [...] eat like she should, 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 Food [...] rhinitis Anemia Anxiety Bipolar disorder ([facility]) Chronic wound infection of abdomen from 2010 Cough Depression Diverticulitis of colon Dizziness Glaucoma Heart burn Hemorrhoids Hernia of abdominal wall Incisional hernia, incarcerated 2012 Insomnia Irregular periods Kidney stone Leaking of urine Leg sore Lymphedema Morbid obesity with body mass index of 70 and over in adult ([facility]) Myalgia and myositis Nausea Neck pain Numbness Osteoarthritis of knee Palpitations Pneumonia Shortness of breath Staphylococcal infection Stroke ([facility]) TIA (transient ischemic attack) due to Bromocriptine Tinea corporis UTI (urinary tract infection) Medications: See list in Epic snap shot Medications for Diabetes: SSI (/30), Tresiba. Checking CBG's Dietary Supplements: K, Mag, [...] post-surgery diet progression. 4. Call or send Flynn message to dietitian with any questions. Contact information was provided. Follow up with dietitian prior to surgery (take 2 Weight management classes as part of 6 mo [facility] supervised diet). [address], [facility], LD [facility] Bariatrics [phone] documented in this enco unter Plan of [...] Rd | | | | | | [place], [place] | | | | | | [address] | | | | | | [phone] | | | | | | | | +--------+ + + + + | 08/19/ | Surgery | Surgery | Chilo, | OPEN VENTRAL HERNIA | | 2019 | | | MD Jorje [address] | REPAIR WITH | | | | | [address] | BIOLOGICAL MESH | | | | | [place], [place] | | | | | | [address] | | | | | | [phone] | | | | | | | | +--------+ + + + + | 09/15/ | Office | Cardiology | Randell Franks, | | | 2019 | Visit | | [address] | | | | | | [place], [place] | | | | | | [address] | | | | | | [phone] | | | | | | | | +--------+ + + + + documented as of this encounter Procedures + +--------+ + + + | Procedure Name | Priori | Date/Time | Associated Diagnosis | Comments | | | ty | | | | + +--------+ + + + | HI MNT RE-ASSESSMNT | Routin | 02/02/2017 | Morbid obesity | | | X15MIN | e | 12:04 PM | with BMI of 70 and | | | | | PDT | over, adult ([facility]) | | | | | | Type 2 diabetes | | | | | | mellitus without | | | | | | complication, with | | | | | | long-term current | | | | | | use of insulin ([facility]) | | | | | | Chronic diastolic | | | | | | heart failure ([facility]) | | + +--------+ + + + documented in this encounter Visit Diagnoses + + | Diagnosis | + + | Morbid obesity with BMI of 70 and over, adult ([facility]) - Primary | + + | Type 2 diabetes mellitus without complication, with long-term current use of insulin | | (HCC) | + + | Chronic diastolic heart failure (HCC) Chronic diastolic heart failure | + + documented in this encounter
--- OUTSIDE RECORDS SUMMARY | ~2019-06-25 | XMS | Encounter Summary ---
Demographics + + + | Address | [address] | | | [place] [address] | + + + | Home Phone [...] [place], [place] | | | | | [address] | | + + + + + | Ellie Vang | ECON | Unknown | | + + + + + Care Team Providers + +------+ + | Care Traffic Manager Name | Role | Phone | [...] Rd | | | | | | [place], [place] | | | | | | [address] | | | | | | [phone] | | | | | | | | +--------+ + + + + | 08/19/ | Surgery | Surgery | Chilo, | OPEN VENTRAL HERNIA | | 2019 | | | MD Jorje [address] | REPAIR WITH | | | | | [address] | BIOLOGICAL MESH | | | | | [place], [place] | | | | | | [address] | | | | | | [phone] | | | | | | | | +--------+ + + + + | 09/15/ | Office | Cardiology | Randell Franks, | | | 2019 | Visit | | [address] | | | | | | [place], [place] | | | | | | [address] | | | | | | [phone] | | | | | | | | +--------+ + + + + documented as of this encounter Visit Diagnoses Not on filedocumented in this encounter"
--- OUTSIDE RECORDS SUMMARY | ~2019-06-25 | XMS | Encounter Summary ---
Demographics + + + | Address | [address] | | | [place] [address] | + + + | Home Phone [...] + | Katalina Padilla | ECON | [address] | | | | | [place], [place] | | | | | [address] | | + + + + + | Ellie Vang | ECON | Unknown | | + + + + + Care Team Providers + +------+ + | Care Transporter Radiology Name | Role | Phone | + [...] | | 2019 | | Preventive at [facility] | [address] | re-test? ) | | | | [address] | [place], [place] | | | | | Mailcode: [facility] | [address] | | | | | [facility] | [phone] | | | | | and Erick, | | | | | | [address] | | | | | | [place], [place] | | | | | | [address] | | | | | | [phone] | | | +--------+ + + + [...] Rd | | | | | | [place], [place] | | | | | | [address] | | | | | | [phone] | | | | | | | | +--------+ + + + + | 08/19/ | Surgery | Surgery | Chilo, | OPEN VENTRAL HERNIA | | 2019 | | | MD Jorje [address] | REPAIR WITH | | | | | [address] | BIOLOGICAL MESH | | | | | [place], [place] | | | | | | [address] | | | | | | [phone] | | | | | | | | +--------+ + + + + | 09/15/ | Office | Cardiology | Randell Franks, | | | 2019 | Visit | | [address] | | | | | | [place], [place] | | | | | | [address] | | | | | | [phone] | | | | | | | [...]
--- OUTSIDE RECORDS SUMMARY | ~2019-06-25 | XMS | Encounter Summary ---
Demographics + + + | Address | [address] | | | [place] [address] | + + + | Home Phone [...] + | Katalina Padilla | ECON | [address] | | | | | [place], [place] | | | | | [address] | | + + + + + | Ellie Vang | ECON | Unknown | | + + + + + Care Team Providers + +------+ + | Care Stone Fabricator Name | Role | Phone | [...] | | | [address] | [place], [place] | | | | | [facility] | [address] | | | | | Rd Mailcode: U[facility] | [phone] | | | | | Francesco Peres | | | | | | [address] [place], [place] | | | | | | [address] | | | | | | [phone] | | | +--------+ + + + [...] Rd | | | | | | [place], [place] | | | | | | [address] | | | | | | [phone] | | | | | | | | +--------+ + + + + | 08/19/ | Surgery | Surgery | Chilo, | OPEN VENTRAL HERNIA | | 2019 | | | MD Jorje [address] | REPAIR WITH | | | | | [address] | BIOLOGICAL MESH | | | | | [place], [place] | | | | | | [address] | | | | | | [phone] | | | | | | | | +--------+ + + + + | 09/15/ | Office | Cardiology | Randell Franks, | | | 2019 | Visit | | [address] | | | | | | [place], [place] | | | | | | [address] | | | | | | [phone] | | | | | | | | +--------+ + + + + documented as of this encounter Visit Diagnoses Not on filedocumented in this encounter"
--- OUTSIDE RECORDS SUMMARY | ~2019-06-25 | XMS | Encounter Summary ---
Demographics + + + | Address | [address] | | | [place] [address] | + + + | Home Phone [...] + | Katalina Padilla | ECON | [address] | | | | | [place], [place] | | | | | [address] | | + + + + + | Ellie Vang | ECON | Unknown | | + + + + + Care Team Providers + +------+ + | Care Sheet Metal Operator Name | Role | Phone | [...] NISH EN | | 2017 | | [facility] | MD [address] | Y GASTRIC BYPASS | | | | Admitting Desk | [place], [place] | | | | | Located on the | [address] | | | | | floor [address] [facility] | [phone] | | | | | [address] | | | | | | [place], [place] | | | | | | [address] | | | +--------+---------+ + + + [...] Gavin ACNP - 03/03/2018 9:49 AM PDT [facility] RED SURGERY INPATIENT DISCHARGE SUMMARY Author: [...] to a bariatric full liquid diets. Our [facility] dietitian was consulted and they [...] at minimum. 5. Follow with PCP for Debubblizer within 1 - 2 weeks of discharge [...] mg by mouth two times daily. CALCIUM CRB&XMS-D9-SPI70-GENIS ORAL Take 2 tablets by mouth two [...] yogurt or kefir. Zaria's Yogurt or Kefir, Spaces 2 [employer] Yogurt, and [employer] i Ukrainian Yogurt are common brands with beneficial probiotics. [...] over the counter at most [facility] stores. Nausea/Vomiting/Difficulty Swallowing Nausea/Vomiting/Difficulty swallowing: Could [...] hours per your instructions. Some medications, like Hawthorn, have Tylenol in it. Make sure you [...] (PCP) as [facility]. When to Call [...] hours by calling the surgery office at [phone]. - After hours, weekends and holidays, you may call the hospital corn press operator at [phone] an d have the mill controller Red Surgery Team paged. OTHER DISCHARGE ORDERS [...] at minimum. 5. Follow with PCP for Debubblizer within 1 - 2 weeks of discharge [...] Department Dept Phone Center 03/10/2018 1:30 PM [facility] at [facility] 6th Floor [phone] FO OD AND NUT 03/10/2018 3:05 PM Ronna Clarke Digestive [facility] at [facility] 6th Floor [phone] [facility] 04/01/2018 10:30 AM [facility] at [facility] 6th Floor [phone] FO OD AND NUT 04/01/2018 11:00 AM Ion Castanon Digestive [facility] at [facility] 6th Floor [phone] [facility] 05/27/2018 2:30 PM [facility] at [facility] 6th Floor [phone] FO OD AND NUT 05/27/2018 3:05 PM [facility] 6th Floor [phone] [facility] 05/27/2018 4:30 PM [facility] at [facility] 15th Floor [phone] Comprehensiv 06/04/2018 10:35 AM Randell Franks Cardiology Preventive at [facility] [phone] Cardiology Discharging Physician: KAIN Agee Attending Physician: Ion Castanon MD [facility] Red Surgery Pager# [phone] 9:50 AM 03/03/2018 documented in this enco [...] | | 0 | | | | CRB&DML-O6-RXM11-GEN | mouth two times | | | [...] date of discharge 03/03/18 PARTHA Calixto MS3 [facility] emarcus Alas MD - 03/02 11:00 AM PDT RED [...] for care ride home (pt lives in [place]) Demarcus Alas M.D. General Surgery Resident PGY-1 Pager: [phone] Ion Ferrari MD - 10:00 AM [address] [...] Rd | | | | | | [place], [place] | | | | | | [address] | | | | | | [phone] | | | | | | | | +--------+ + + + + | 08/19/ | Surgery | Surgery | Chilo, | OPEN VENTRAL HERNIA | | 2019 | | | MD Jorje [address] | REPAIR WITH | | | | | [address] | BIOLOGICAL MESH | | | | | [place], [place] | | | | | | [address] | | | | | | [phone] | | | | | | | | +--------+ + + + + | 09/15/ | Office | Cardiology | Randell Franks, | | | 2019 | Visit | | [address] | | | | | | Ave [facility] [place] | | | | | | [address] | | | | | | [phone] | | | | | | | [...] POC | | PDT | over, adult ([facility]) | results section. | + +--------+ + + + | CAPILLARY BLOOD | Routin | 03/03/2018 | Morbid obesity | Results for this | | GLUCOSE (NO CHG), | e | 7:54 AM | with BMI of 70 and | procedure are in the | | POC | | PDT | over, adult ([facility]) | results section. | + +--------+ + + + | CAPILLARY BLOOD | Routin | 03/03/2018 | Morbid obesity | Results for this | | GLUCOSE (NO CHG), | e | 6:28 AM | with BMI of 70 and | procedure are in the | | POC | | PDT | over, adult ([facility]) | results section. | + +--------+ + + + | CAPILLARY BLOOD | Routin | 03/02/2018 | Morbid obesity | Results for this | | GLUCOSE (NO CHG), | e | 9:17 PM | with BMI of 70 and | procedure are in the | | POC | | PDT | over, adult ([facility]) | results section. | + +--------+ + + + | CAPILLARY BLOOD | Routin | 03/02/2018 | Morbid obesity | Results for this | | GLUCOSE (NO CHG), | e | 6:50 PM | with BMI of 70 and | procedure are in the | | POC | | PDT | over, adult ([facility]) | results section. | + +--------+ + + + | CAPILLARY BLOOD | Routin | 03/02/2018 | Morbid obesity | Results for this | | GLUCOSE (NO CHG), | e | 3:46 PM | with BMI of 70 and | procedure are in the | | POC | | PDT | over, adult ([facility]) | results section. | + +--------+ + + + | CAPILLARY BLOOD | Routin | 03/02/2018 | Morbid obesity | Results for this | | GLUCOSE (NO CHG), | e | 2:36 PM | with BMI of 70 and | procedure are in the | | POC | | PDT | over, adult ([facility]) | results section. | + +--------+ + + + | CAPILLARY BLOOD | Routin | 03/02/2018 | Morbid obesity | Results for this | | GLUCOSE (NO CHG), | e | 1:33 PM | with BMI of 70 and | procedure are in the | | POC | | PDT | over, adult ([facility]) | results section. | + +--------+ + + + | CAPILLARY BLOOD | Routin | 03/02/2018 | Morbid obesity | Results for this | | GLUCOSE (NO CHG), | e | 11:36 AM | with BMI of 70 and | procedure are in the | | POC | | PDT | over, adult ([facility]) | results section. | + +--------+ + + + | CAPILLARY BLOOD | Routin | 03/02/2018 | Morbid obesity | Results for this | | GLUCOSE (NO CHG), | e | 10:32 AM | with BMI of 70 and | procedure are in the | | POC | | PDT | over, adult ([facility]) | results section. | + +--------+ + + + | CAPILLARY BLOOD | Routin | 03/02/2018 | Morbid obesity | Results for this | | GLUCOSE (NO CHG), | e | 9:23 AM | with BMI of 70 and | procedure are in the | | POC | | PDT | over, adult ([facility]) | results section. | + +--------+ + + + | CAPILLARY BLOOD | Routin | 03/02/2018 | Morbid obesity | Results for this | | GLUCOSE (NO CHG), | e | 8:36 AM | with BMI of 70 and | procedure are in the | | POC | | PDT | over, adult ([facility]) | results section. | + +--------+ + + + | CAPILLARY BLOOD | Routin | 03/02/2018 | Morbid obesity | Results for this | | GLUCOSE (NO CHG), | e | 7:35 AM | with BMI of 70 and | procedure are in the | | POC | | PDT | over, adult ([facility]) | results section. | + +--------+ + + + | CAPILLARY BLOOD | Routin | 03/02/2018 | Morbid obesity | Results for this | | GLUCOSE (NO CHG), | e | 6:33 AM | with BMI of 70 and | procedure are in the | | POC | | PDT | over, adult ([facility]) | results section. | + +--------+ + + + | CAPILLARY BLOOD | Routin | 03/02/2018 | Morbid obesity | Results for this | | GLUCOSE (NO CHG), | e | 5:28 AM | with BMI of 70 and | procedure are in the | | POC | | PDT | over, adult ([facility]) | results section. | + +--------+ + + + | CAPILLARY BLOOD | Routin | 03/02/2018 | Morbid obesity | Results for this | | GLUCOSE (NO CHG), | e | 4:36 AM | with BMI of 70 and | procedure are in the | | POC | | PDT | over, adult ([facility]) | results section. | + +--------+ + + + | CAPILLARY BLOOD | Routin | 03/02/2018 | Morbid obesity | Results for this | | GLUCOSE (NO CHG), | e | 2:46 AM | with BMI of 70 and | procedure are in the | | POC | | PDT | over, adult ([facility]) | results section. | + +--------+ + + + | CAPILLARY BLOOD | Routin | 03/02/2018 | Morbid obesity | Results for this | | GLUCOSE (NO CHG), | e | 12:32 AM | with BMI of 70 and | procedure are in the | | POC | | PDT | over, adult ([facility]) | results section. | + +--------+ + + + | CAPILLARY BLOOD | Routin | 03/01/2018 | Morbid obesity | Results for this | | GLUCOSE (NO CHG), | e | 10:31 PM | with BMI of 70 and | procedure are in the | | POC | | PDT | over, adult ([facility]) | results section. | + +--------+ + + + | CAPILLARY BLOOD | Routin | 03/01/2018 | Morbid obesity | Results for this | | GLUCOSE (NO CHG), | e | 8:21 PM | with BMI of 70 and | procedure are in the | | POC | | PDT | over, adult ([facility]) | results section. | + [...] POC | | PDT | over, adult ([facility]) | results section. | + +--------+ + + + | CAPILLARY BLOOD | Routin | 03/01/2018 | Morbid obesity | Results for this | | GLUCOSE (NO CHG), | e | 3:31 PM | with BMI of 70 and | procedure are in the | | POC | | PDT | over, adult ([facility]) | results section. | + +--------+ + + + | CAPILLARY BLOOD | Routin | 03/01/2018 | Morbid obesity | Results for this | | GLUCOSE (NO CHG), | e | 3:29 PM | with BMI of 70 and | procedure are in the | | POC | | PDT | over, adult ([facility]) | results section. | + +--------+ + + + | CAPILLARY BLOOD | Routin | 03/01/2018 | Morbid obesity | Results for this | | GLUCOSE (NO CHG), | e | 2:30 PM | with BMI of 70 and | procedure are in the | | POC | | PDT | over, adult ([facility]) | results section. | + +--------+ + + + | CAPILLARY BLOOD | Routin | 03/01/2018 | Morbid obesity | Results for this | | GLUCOSE (NO CHG), | e | 1:35 PM | with BMI of 70 and | procedure are in the | | POC | | PDT | over, adult ([facility]) | results section. | + +--------+ + + + | CAPILLARY BLOOD | Routin | 03/01/2018 | Morbid obesity | Results for this | | GLUCOSE (NO CHG), | e | 12:16 PM | with BMI of 70 and | procedure are in the | | POC | | PDT | over, adult ([facility]) | results section. | + [...] POC | | PDT | over, adult ([facility]) | results section. | + +--------+ + + + | LAPAROSCOPIC | Electi | 03/01/2018 | Morbid obesity | | | NISH-EN-Y GASTRIC | ve | 8:31 AM | ([facility]) | | | BYPASS | [...] AMES | [address] | [place], [place] | | | [facility] | [address] | [address] | | | TESTS | | | [...] AMES | [address] | [place], [place] | | | [facility] OF JAKY | [facility] | [address] | | | TESTS | | | | + + + + + CAPILLARY BLOOD GLUCOSE (NO CHG), VALERIE (03/03/2018 6:28 AM PDT) + +-------+ + [...] YAKOVAM | [address] | [place], [place] | | | [facility] [place] | [facility] | [address] | | | TESTS | | | [...] (H) | 70 - 99 mg/dL | [facility] - | | | GLUCOSE, | | [...] YAKOVAM | [address] | [place], [place] | | | [facility] CARE | [address] | [address] | | | TESTS | | | [...] KWAKU | [address] | [place], [place] | | | [facility] [place] | [facility] | [address] | | | TESTS | | | [...] YAKOVAM | [address] | [place], [place] | | | [facility]ARE | [facility] | [address] | | | TESTS | | | [...] (H) | 70 - 99 mg/dL | [facility] - | | | GLUCOSE, | | [...] KWAKU | [address] | [place], [place] | | | [facility] | [address] | [address] | | | TESTS | | | [...] KWAKU | [address] | [place], [place] | | | [facility] [place] | [facility] | [address] | | | TESTS | | | [...] YAKOVAM | [address] | [place], [place] | | | [facility] CARE | [facility] | [address] | | | TESTS | | | [...] (H) | 70 - 99 mg/dL | [facility] - | | | GLUCOSE, | | [...] KWAKU | [address] | [place], [place] | | | [facility] | [address] | [address] | | | TESTS | | | [...] KWAKU | [address] | [place], [place] | | | [facility] [place] | [facility] | [address] | | | TESTS | | | [...] KWAKU | [address] | [place] | | | [facility] | [facility] | [address] | | | TESTS | | | | + + + + + CAPILLARY BLOOD GLUCOSE (NO CHG), POC (03/02/2018 7:35 AM PDT) + +-------+ + + + | Component | Value | Ref Range | Performed | Pathologist | | | | | At | Signature | + +-------+ + + + | BLOOD | 92 | 70 - 99 mg/dL | [place] [...] YAKOVAM | [address] | [place], [place] | | | [facility] | [address] | [address] | | | TESTS | | | [...] AMES | [address] | [place], [place] | | | [facility] [place] | [facility] | [address] | | | TESTS | | | [...] - MARQUAM | [address] | [place], [place] | | | [facility] CARE | [facility] | [address] | | | TESTS | | | | + + + + + CAPILLARY BLOOD GLUCOSE (NO CHG), POC (03/02/2018 4:36 AM PDT) + +-------+ + + + | Component | Value | Ref Range | Performed | Pathologist | | | | | At | Signature | + +-------+ + + + | BLOOD | 97 | 70 - 99 mg/dL | OH [...] MARQUAM | [address] | [place], [place] | | | [facility] | [facility] | [address] | | | TESTS | | | [...] AMES | [address] | [place] | | | [facility] | [address] | [address] | | | TESTS | | | [...] KWAKU | [address] | [place], [place] | | | [facility] [place] | [facility] | [address] | | | TESTS | | | [...] MARQUAM | [address] | [place] | | | [facility] [place] | [facility] | [address] | | | TESTS | | | [...] AMES | [address] | [place], [place] | | | [facility] [place] | [address] | [address] | | | TESTS | | | [...] MARQUAM | [address] | [place], [place] | | | [facility] CARE | [address] | [address] | | | TESTS | | | [...] (H) | 70 - 99 mg/dL | [facility] - | | | GLUCOSE, | | [...] YAKOVAM | [address] | [place], [place] | | | [facility] [place] | [address] | [address] | | | TESTS | | | [...] AMES | [address] | [place], [place] | | | [facility] [place] | [facility] | [address] | | | TESTS | | | [...] MARQUAM | [address] | [place], [place] | | | [facility]ARE | [address] | [address] | | | TESTS | | | [...] (H) | 70 - 99 mg/dL | [facility] - | | | GLUCOSE, | | [...] YAKOVAM | [address] | [place] | | | [facility] [place] | [address] | [address] | | | TESTS | | | [...] AMES | [address] | [place], [place] | | | [place]RA[place] DAWN | [facility] | [address] | | | TESTS | | | | + + + + + EGD (ESOPHAGOGASTRODUODENOSCOPY) (03/01/2018 11:21 AM PDT) + + + | Narrative | Performed At | + + + | Ion Castanon MD 03/01/2018 12:25 PM Date of Procedure: | | | 03/01/18 Primary Surgeon: Ion Castanon MD Co Surgeon or | | | assistant account manager: Eldon Gonzalez MD, Chief Resident Alexx | [...] The jejunum was divided with 60 mm [place] stapler with white | | | load [...] created in each limb and a 60mm [place] stapler | | | with white load was fired to create a cepy-gz-[id number] | | | jejunojejunostomy. The anastamosis was confirmed to be widely | | | patent and hemostatic. The common enterotomy was closed by placing | | | 2 stay sutures along the enterotomy for retraction and firing an | | | [place] 60mm stapler with white load across the [...] | | | was entered. The 60mm [place] stapler with blue load was placed | [...] blue load of the 60mm stapler. The [place] was then fired | | | longitudinally towards the angle of His to create the gastric pouch, | | | leaving the gastrotomy from foreign body removal, on the pouch. | | | Dissection was performed retrogastric to connect posterior and | | | anterior dissection planes and ensure adequate fundus exclusion. | | | Additional fires of the [place] stapler were performed with blue | | [...] with | | | 5 mm clip greenhouse transplanter. A 25mm Orvil was passed transorally by [...] was closed with 60mm | | | [place] stapler with a white load. Medially and [...] present | | | as my assistant account manager for the entire procedure, given the technically | | | challenging nature of this procedure. She assisted in all critical | | | steps of the procedure. Dr. Gonzalez was present for endoscopy at the | | | end of the procedure. Ion Castanon MD, FACS, [facility] | | | Bariatric Surgery | | + + + LAPAROSCOPIC GASTRIC BYPASS AND NISH-EN-Y GASTROENTEROSTOMY WITH NISH LIMB 150 CM OR LESS ( 03/01/2018 11:21 AM PDT) + + + | Narrative | Performed At | + + + | Ion Castaonn MD 03/01/2018 12:25 PM Date of Procedure: | | | 03/01/18 Primary Surgeon: Ion Castanon MD Co Surgeon or | | | assistant account manager: Eldon Gonzalez MD, Chief Resident Alexx | [...] The jejunum was divided with 60 mm [place] stapler with white | | | load [...] created in each limb and a 60mm [place] stapler | | | with white load was fired to create a izsy-qu-jlep | | | jejunojejunostomy. The anastamosis was confirmed to be widely | | | patent and hemostatic. The common enterotomy was closed by placing | | | 2 stay sutures along the enterotomy for retraction and firing an | | | [place] 60mm stapler with white load across the [...] | posterior to the nish limb. A [facility] was | | | placed [...] | | | was entered. The 60mm [place] stapler with blue load was placed | [...] blue load of the 60mm stapler. The [place] was then fired | | | longitudinally towards the angle of His to create the gastric pouch, | | | leaving the gastrotomy from foreign body removal, on the pouch. | | | Dissection was performed retrogastric to connect posterior and | | | anterior dissection planes and ensure adequate fundus exclusion. | | | Additional fires of the [place] stapler were performed with blue | | [...] with | | | 5 mm clip greenhouse transplanter. A 25mm Orvil was passed transorally by [...] was closed with 60mm | | | [place] stapler with a white load. Medially and [...] present | | | as my assistant account manager for the entire procedure, given the technically | | | challenging nature of this procedure. She assisted in all critical | | | steps of the procedure. Dr. Gonzalez was present for endoscopy at the | | | end of the procedure. Ion Castanon MD, FACS, [facility] | | | Bariatric Surgery [...] KWAKU | [address] | [place], [place] | | | JUST[facility] OF [place] | [address] | [address] | | | TESTS | | | [...] | | | 03/02/18 at 1400, Until Thu03/03/18 | | | | | [...] at 1556, Until Thu | | | 8/8/18 at 1930, CBG less than 70 | [...] BEDTIME, First dose on | | | Thu03/02/18 at 1745, Until | | | Discontinued [...] | | First dose on 03/01/18 at 1400, | | AM PDT | [...]
--- OUTSIDE RECORDS SUMMARY | ~2019-06-25 | XMS | Encounter Summary ---
Demographics + + + | Address | [address] | | | [place] [address] | + + + | Home Phone | | + + + | Preferred Language | Unknown | + + + | Marital Status | | + + + | Hoahaoism Affiliation | Unknown | + + + | Race | Unknown | + + + | Ethnic Group | Unknown | + + + Author + + + | Author | [facility] | | | and Jeffana | + + + | Organization | [facility] | [...] Team Providers + +------+ + | Care Teacher Vocal Name | Role | Phone | + [...] | specified | MD [address] | SOFTWARE CONTROLS ENGINEER [address] | | | | | diseases of | [address] | [place], [place] | | | | | liver | [place], | [address] [place] | | | | | Procedures | [place] | [place] | | | | | office visit | [address] | [address] Phone: | | | | | | Phone: | [phone] | | | | | | [phone] | Fax: | | | | | | Fax: | [phone] | | | | | | [phone] | | +--------+--------+ + + + + Encounter Details +--------+---------+ + + + | Date | Type | Department | Care Team | Description | +--------+---------+ + + + | 02/15/ | Office | [place] | [place], | 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 She reports that approximately 3 months [...] right ventricular diastolic dysfunction (HCC) 10/26/2015 Overview: [facility] Last Assessment & Plan: Patient with [...] o besity Pickwickian syndrome Recent admission to [facility] for 100lb weight gain- DC [...] mellitus type 2 without retinopathy ([facility]) 04/14/2013 Diabetes mellitus with insulin therapy ([facility]) 12/27/2014 DM (diabetes mellitus) ([facility]) 05/09/2016 Overview: A1c 5.29 Aug 2014 Last [...] with morbid obesity, she is enrolled in [facility] bariatric program. She has lost approximately [...] Plan: TSH WNL 10/2015. She is on [place] thyroid as OP. -TSH WNL -continu e supplementation here Hypoventilation associated with obesity (HCC) 06/16/2013 Last Assessment & Plan: [facility] Bariatric Program, has lost 50lbs. STEFANO (iron deficiency anemia) 02/03/2019 Overview: Presumed due to menses. Venofer 200 qd x 30 October 2015 [facility] Last Assessment & P sharon: Hgb [...] She is to follow-up with surgeons at [facility] as planned. Patient is to call [...] in this encounter Plan of Treatment + +------+--------+ + + | Name | [...]
--- OUTSIDE RECORDS SUMMARY | ~2019-06-25 | XMS | Encounter Summary ---
Demographics + + + | Address | [address] | | | [place] [address] | + + + | Home Phone [...] + | Katalina Padilla | ECON | [address] | | | | | [place], [place] | | | | | [address] | | + + + + + | Ellie Vang | ECON | Unknown | | + + + + + Care Team Providers + +------+ + | Care Billposting Supervisor Name | Role | Phone | [...] | | 2013 | | Center at [facility] [address] | THERAPEUTIC RECREATION ASSISTANT [address] | | | | | [place] | [facility] 350 | | | | | Mailcode: Center | [place], [place] | | | | | for Health and | [address] | | | | | [facility] 2 | [phone] | | | | | [place], [place] | | | | | | [address] | | | | | | [phone] | | | +--------+ + + + [...] | | | | | | [place], [place] | | | | | | [address] | | | | | | [phone] | | | | | | | | +--------+ + + + + | 08/19/ | Surgery | Surgery | Chilo, | OPEN VENTRAL HERNIA | | 2019 | | | MD Demond [address] | REPAIR WITH | | | | | [address] | BIOLOGICAL MESH | | | | | [place], [place] | | | | | | [address] | | | | | | [phone] | | | | | | | | +--------+ + + + + | 09/15/ | Office | Cardiology | Randell Franks, | | | 2020 | Visit | | [address] | | | | | | [place], [place] | | | | | | [address] | | | | | | [phone] | | | | | | | | +--------+ + + + + documented as of this encounter Visit Diagnoses Not on filedocumented in this encounter"
--- OUTSIDE RECORDS SUMMARY | ~2019-06-25 | XMS | Encounter Summary ---
Demographics + + + | Address | [address] | | | [place] [address] | + + + | Home Phone [...] [place], [place] | | | | | [address] | | + + + + + | Ellie Vang | ECON | Unknown | | + + + + + Care Team Providers + +------+ + | Care Felt Checker Name | Role | Phone | [...] | | | [address] | [facility] | | | | | Mailcode: Center | [place], [place] | | | | | [facility] and | [address] | | | | | [facility] 2 | [phone] | | | | | [place], [place] | | | | | | [address] | | | | | | [phone] | | | +--------+ + + + [...] Rd | | | | | | [place], [place] | | | | | | [address] | | | | | | [phone] | | | | | | | | +--------+ + + + + | 08/19/ | Surgery | Surgery | Chilo | OPEN VENTRAL HERNIA | 2019 | | | Jorje, MD [address] | REPAIR WITH | | | | | [address] | BIOLOGICAL MESH | | | | | [place], [place] | | | | | | [address] | | | | | | [phone] | | | | | | | | +--------+ + + + + | 09/15/ | Office | Cardiology | Randell Franks, | | | 2019 | Visit | | [address] | | | | | | [place] [facility] [place] | | | | | | [address] | | | | | | [phone] | | | | | | | | +--------+ + + + + documented as of this encounter Visit Diagnoses Not on filedocumented in this encounter"
--- OUTSIDE RECORDS SUMMARY | ~2019-06-25 | XMS | Encounter Summary ---
Demographics + + + | Address | [address] | | | [place] [address] | + + + | Home Phone | | + + + | Preferred Language | Unknown | + + + | Marital Status | | + + + | Church Affiliation | Unknown | + + + | Race | Unknown | + + + | Ethnic Group | Unknown | + + + Author + + + | Author | [facility] | | | and Jeffana | + + + | Organization | [facility] | | | and Jeffana [...] Team Providers + +------+ + | Care Utility Operator Name | Role | Phone | + +------+ + PCP | Unavailable | + +------+ + Encounter Details +--------+ + + + + | Date | Type | Department | Care Team | Description | +--------+ + + + + | 10/07/ | Orders Only | [facility] | Dharmesh Escobar, | | | 2018 | | NEPHROLOGY [place] | QUILLER HAND [address] | | | | | [address] | [address] | | | | | [address] [place], [place] | [place] | | | | | [address] | [address] | | | | | [phone] | [phone] | | | | | | | [...] + + + | RED CELL | 4.79 | 3.8 - 5.1 10 | EXTERNAL | | | COUNT | | | LAB | | + + + + + + | Hgb | 12.8 | 12 - 16 g/dL [...] | | | LAB | | | [facility]ER[facility] | | | | | + +---------+ [...]
--- OUTSIDE RECORDS SUMMARY | ~2019-06-25 | XMS | Encounter Summary ---
Demographics + + + | Address | [address] | | | [place] [address] | + + + | Home Phone [...] [place], [place] | | | | | [address] | | + + + + + | Ellie Vang | ECON | Unknown | | + + + + + Care Team Providers + +------+ + | Care Production Underwriter Name | Role | Phone | + +------+ + | Kenyatta Cardenas MD | PCP | | + +------+ + Encounter Details +--------+---------+ + + + | Date | Type | Department | Care Team | Description | +--------+---------+ + + + | 06/14/ | Office | Cardiology | Randell Franks, | Type 2 diabetes | | 2019 | Visit | Preventive at [facility] | MD [address] | mellitus without | | | | [address] | Ave [place], [place] | complication, with | | | | Mailcode: [facility] | [address] | long-term current | | | | [facility] | [phone] | use of insulin (HCC) | | | | and Healing, | | (Primary Dx); | | | | Building [address] | | Morbid obesity with | | | | [place], [place] | | BMI of 70 and over, | | | | [address] | | adult (HCC) | | | | [phone] | | | +--------+---------+ + + + [...] Note: Cannot tolerate CPAP Severe Morbid obesity ([facility]), BMI 88 11/12/2012 Priority: 4 Overview Note: Lifetime max: 495 lbs Phentermine started Type 2 diabetes mellitus ([facility]) 04/14/2013 Priority: 5 Iron deficiency anemia due to chronic blood loss 11/11/2015 Priority: 6 Overview Note: Ferritin 18 on 10/2015 Hypoalbuminemia (no proteinuria, need to rule out synthetic, nutrition, loss) 6 Priority: 6 Hypothyroidism 08/28/2014 Priority: 8 Morbid obesity with BMI of 70 and over, adult ([facility]) 02/02/2017 Chronic diastolic heart failure (HCC) 02/02/2017 [...] daily. BELBUCA 300 mcg buccal film CALCIUM CRB&HLD-R2-SBB56-GENIS ORAL Take 2 tablets by mouth two [...] of metformin, and she reports her last ldpjo-vs-yutw A1 c was 5.5% on this dose. [...] CREATININE PLASMA (LAB) 0.85 0.70 EGFR - MALAYSIAN >60 >60 EGFR NON -MALAYSIAN >60 >60 GLUCOSE, PLASMA (LAB) 123 (H) [...] is currently being managed well by her Conical Mixer with diuretics and main tenance of her [...] management of her heart failure by her Conical Mixer 3) discontinue metformin 4) check 24 urine [...] Rd | | | | | | [place], [place] | | | | | | [address] | | | | | | [phone] | | | | | | | | +--------+ + + + + | 08/19/ | Surgery | Surgery | Chilo, | OPEN VENTRAL HERNIA | | 2019 | | | MD Jorje [address] | REPAIR WITH | | | | | [address] | BIOLOGICAL MESH | | | | | [place], [place] | | | | | | [address] | | | | | | [phone] | | | | | | | | +--------+ + + + + | 09/15/ | Office | Cardiology | Randell Franks, | | | 2019 | Visit | | MD [address] | | | | | | [place], [place] | | | | | | [address] | | | | | | [phone] | | | | | | | [...] + + | [facility] - | [address] | [place] | [phone] | | [place] | | | | [...]
--- OUTSIDE RECORDS SUMMARY | ~2019-06-25 | XMS | Encounter Summary ---
Demographics + + + | Address | [address] | | | [place] [address] | + + + | Home Phone [...] [place], [place] | | | | | [address] | | + + + + + | Ellie Vang | ECON | Unknown | | + + + + + Care Team Providers + +------+ + | Care Business Liaison Officer Name | Role | Phone | [...] | HA Roldan | | | with MACHINE TANK OPERATOR | | hypertension | [address] | [address] | | | | | Right | [address] | [place] | | | | | heart | [place], [place] | [place], | | | | | failure | [address] | [place] | | | | | ([facility]) Type | Phone: | [address] | | | | | 2 diabetes | [phone] | | | | | | mellitus | Fax: | | | | | | without | [phone] | | | | | | complication | | | | | | | , with | | | | | | | long-term | | | | | | | current use | | | | | | | of insulin | | | | | | | ([facility]) | | | +--------+ + + + + + Encounter Details +--------+---------+ + + + | Date | Type | Department | Care Team | Description | +--------+---------+ + + + | 02/02/ | Office | Digestive Health | [address] | Morbid obesity with | | 2017 | Visit | Center at [facility] [address] | [address] | BMI of 70 and over, | | | | [address] | Lesly Gutiérrez [place], | adult ([facility]) (Primary | | | | Mailcode: Center | [place] [address] | Dx); Type 2 | | | | for Health and |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 | | | | Healing, Building 2 | | without | | | | [place], [place] | | complication, with | | | | [address] | | long-term current | | | | [phone] | | use of insulin | | | | | | ([facility]); Chronic | | | | | | diastolic heart | | | | | | failure ([facility]) | +--------+---------+ + + + Social History [...] of Visit: 10:03 to 10:30 (27 minutes fepw-iy-ngwx with patient) (1 hour ap point not [...] eat like she should, tries to eat payable processor things and this does not help. Food [...] Allergic rhinitis Anemia Anxiety Bipolar disorder ([facility]) Chronic wound infection of abdomen from 2010 Cough Depression Diverticulitis of colon Dizziness Glaucoma Heart burn Hemorrhoids Hernia of abdominal wall Incisional hernia, incarcerated 2012 Insomnia Irregular periods Kidney stone Leaking of urine Leg sore Lymphedema Morbid obesity with body mass index of 70 and over in adult ([facility]) Myalgia and myositis Nausea Neck pain Numbness Osteoarthritis of knee Palpitations Pneumonia Shortness of breath Staphylococcal infection Stroke ([facility]) TIA (transient ischemic attack) due [...] post-surgery diet progression. 4. Call or send [employer] message to dietitian with any questions. Contact information was provided. Follow up with dietitian prior to surgery (take 2 Weight management classes as part of 6 mo [facility] supervised diet). [address], [facility] [place] [facility] Bariatrics [phone] documented in this enco unter Plan of [...] [place] | | | | | | [address] | | | | | | [phone] | | | | | | | | +--------+ + + + + | 08/19/ | Surgery | Surgery | Chilo, | OPEN VENTRAL HERNIA | | 2019 | | | MD Jorje [address] | REPAIR WITH | | | | | [address] | BIOLOGICAL MESH | | | | | [place], [place] | | | | | | [address] | | | | | | [phone] | | | | | | | | +--------+ + + + + | 09/15/ | Office | Cardiology | Randell Franks, | | | 2019 | Visit | | [address] | | | | | | [place], [place] | | | | | | [address] | | | | | | [phone] | | | | | | | | +--------+ + + + + documented as of this encounter Procedures + +--------+ + + + | Procedure Name | Priori | Date/Time | Associated Diagnosis | Comments | | | ty | | | | + +--------+ + + + | FL MNT RE-ASSESSMNT | Routin | 02/02/2017 | Morbid obesity | | | X15MIN | e | 12:04 PM | with BMI of 70 and | | | | | PDT | over, adult ([facility]) | | | | | | Type 2 diabetes | | | | | | mellitus without | | | | | | complication, with | | | | | | long-term current | | | | | | use of insulin ([facility]) | | | | | | Chronic diastolic | | | | | | heart failure ([facility]) | | + +--------+ + + + documented in this encounter Visit Diagnoses + + | Diagnosis | + + | Morbid obesity with BMI of 70 and over, adult ([facility]) - Primary | + + | Type 2 diabetes mellitus without complication, with long-term current use of insulin | | (HCC) | + + | Chronic diastolic heart failure (HCC) Chronic diastolic heart failure | + + documented in this encounter
--- OUTSIDE RECORDS SUMMARY | ~2019-06-25 | XMS | Encounter Summary ---
Demographics + + + | Address | [address] | | | [place] [address] | + + + | Home Phone [...] + | Katalina Padilla | ECON | [address] | | | | | [place], [place] | | | | | [address] | | + + + + + | Ellie Vang | ECON | Unknown | | + + + + + Care Team Providers + +------+ + | Care Hr Specialist Name | Role | Phone | + +------+ + | Fadi Goodrich DO | PCP | | + +------+ + Encounter Details +--------+ + + + + | Date | Type | Department | Care Team | Description | +--------+ + + + + | 06/17/ | Abstract | Digestive Health | Shereen Georges, | | | 2012 | | Center at [facility] [address] | ACNP [address] | | | | | [address] | Ave [place], [place] | | | | | Mailcode: [place] | [address] | | | | | for Health and | | | | | | [facility] 2 | | | | | | [facility] [place] | | | | | | [address] | | | | | | | [...] Rd | | | | | | [place], [place] | | | | | | [address] | | | | | | [phone] | | | | | | | | +--------+ + + + + | 08/19/ | Surgery | Surgery | Chilo, | OPEN VENTRAL HERNIA | | 2019 | | | MD Jorje [address] | REPAIR WITH | | | | | [address] | BIOLOGICAL MESH | | | | | [place], [place] | | | | | | [address] | | | | | | [phone] | | | | | | | | +--------+ + + + + | 09/15/ | Office | Cardiology | Randell Franks, | | | 2019 | Visit | | [address] | | | | | | [place] [facility] [place] | | | | | | [address] | | | | | | [phone] | | | | | | | | +--------+ + + + + documented as of this encounter Visit Diagnoses Not on filedocumented in this encounter"
--- OUTSIDE RECORDS SUMMARY | ~2019-06-25 | XMS | Encounter Summary ---
Demographics + + + | Address | [address] | | | [place] [address] | + + + | Home Phone [...] [place], [place] | | | | | [address] | | + + + + + | Ellie Vang | ECON | Unknown | | + + + + + Care Team Providers + +------+ + | Care Roll Plugger Name | Role | Phone | + [...] | CONTRAST | Center for | [address] [facility] | | | | | | Health and | Hospital | | | | | | Healing, | [place], [place] | | | | | | Building 2 | [address] | | | | | | [place], [place] | Phone: | | | | | | [address] | [phone] | | | | | | Phone: | Fax: | | | | | | [phone] | [phone] | | | | | | Fax: | | | | | | | [phone] | | +--------+--------+ + + + + [...] | CT ABDOMEN & | Ave | [address] | | | | | PELVIS [address] IV | Mailcode: | Mailcode: | | | | | CONTRAST | Center for | [address] [place] | | | | | | [facility] and | Hospital | | | | | | Healing, | [place], [place] | | | | | | Building 2 | [address] | | | | | | [place], [place] | Phone: | | | | | | [address] | [phone] | | | | | | Phone: | Fax: | | | | | | [phone] | [phone] | | | | | | Fax: | | | | | | | [phone] | | +--------+--------+ + + + + Encounter Details +--------+ + + + + | Date | Type | Department | Care Team | Description | +--------+ + + + + | 10/07/ | Hospital | Radiology/Imaging | | | | 2012 | Encounter | Lab at [facility] [address] | | | | | | [address] Mailcode: | | | | | | [facility] | | | | | [facility] and Healing, | | | | | | Building 1, 3rd | | | | | | Floor [place], [place] | | | | | | [address] | | | | | | [phone] | | | +--------+ + + + [...] Rd | | | | | | [place], [place] | | | | | | [address] | | | | | | [phone] | | | | | | | | +--------+ + + + + | 08/19/ | Surgery | Surgery | Chilo, | OPEN VENTRAL HERNIA | | 2019 | | | MD Jorje [address] | REPAIR WITH | | | | | [address] | BIOLOGICAL MESH | | | | | [place], [place] | | | | | | [address] | | | | | | [phone] | | | | | | | | +--------+ + + + + | 09/15/ | Office | Cardiology | Randell Franks, | | | 2019 | Visit | | [address] | | | | | | [address] [place], [place] | | | | | | [address] | | | | | | [phone] | | | | | | | [...] | 6 - 20 mg/dL | [facility], | | | | | [...] + + | JUSTINE PEÑA | [address] [facility] | [place] [address] | | | OF CARE TESTS | | | | + + + + + documented in this encounter Visit Diagnoses + + | Diagnosis | + + | Hernia Hernia of unspecified site of abdominal cavity without mention of obstruction | | or gangrene | + + documented in this encounter"
--- OUTSIDE RECORDS SUMMARY | ~2019-06-25 | XMS | Encounter Summary ---
Demographics + + + | Address | [address] | | | [place] [address] | + + + | Home Phone [...] [place], [place] | | | | | [address] | | + + + + + | Ellie Vang | ECON | Unknown | | + + + + + Care Team Providers + +------+ + | Care Lime Trimmer Name | Role | Phone | [...] | | | | | | [place] [address] | | | | | | [phone] | | | +--------+ + + + [...] Rd | | | | | | [place], [place] | | | | | | [address] | | | | | | [phone] | | | | | | | | +--------+ + + + + | 08/19/ | Surgery | Surgery | Chilo, | OPEN VENTRAL HERNIA | | 2019 | | | MD Jorje [address] | REPAIR WITH | | | | | [address] | BIOLOGICAL MESH | | | | | [place] | | | | | | [address] | | | | | | [phone] | | | | | | | | +--------+ + + + + | 09/15/ | Office | Cardiology | Randell Franks, | | | 2019 | Visit | | [address] | | | | | | [place] | | | | | | [address] | | | | | | [phone] | | | | | | | | +--------+ + + + + documented as of this encounter Visit Diagnoses Not on filedocumented in this encounter"
--- OUTSIDE RECORDS SUMMARY | ~2019-06-25 | XMS | Encounter Summary ---
Demographics + + + | Address | [address] | | | [place] [address] | + + + | Home Phone [...] [place], [place] | | | | | [address] | | + + + + + | Ellie Vang | ECON | Unknown | | + + + + + Care Team Providers + +------+ + | Care Comfort Station Supervisor Name | Role | Phone | [...] | | | | | | [place] [address] | | | | | | [phone] | | | +--------+ + + + [...] Rd | | | | | | [place], [place] | | | | | | [address] | | | | | | [phone] | | | | | | | | +--------+ + + + + | 08/19/ | Surgery | Surgery | Chilo, | OPEN VENTRAL HERNIA | | 2019 | | | MD Jorje [address] | REPAIR WITH | | | | | [address] | BIOLOGICAL MESH | | | | | [place] | | | | | | [address] | | | | | | [phone] | | | | | | | | +--------+ + + + + | 09/15/ | Office | Cardiology | Randell Franks, | | | 2019 | Visit | | [address] | | | | | | [place] | | | | | | [address] | | | | | | [phone] | | | | | | | | +--------+ + + + + documented as of this encounter Visit Diagnoses Not on filedocumented in this encounter"
--- OUTSIDE RECORDS SUMMARY | ~2019-06-25 | XMS | Encounter Summary ---
Demographics + + + | Address | [address] | | | [place] [address] | + + + | Home Phone [...] + | Katalina Padilla | ECON | [address] | | | | | [place], [place] | | | | | [address] | | + + + + + | Elile Vang | ECON | Unknown | | + + + + + Care Team Providers + +------+ + | Care Surgical Elastic Knitter Hand Frame Name | Role | Phone | + [...] mellitus (HCC); | | | | at [facility] 3rd Floor | | Cholecystitis | | | | [address] | | | | | | [place], | | | | | | [place] [address] | | | | | | [phone] | | | +--------+------+ + + + [...] Rd | | | | | | [place], [place] | | | | | | [address] | | | | | | [phone] | | | | | | | | +--------+ + + + + | 08/19/ | Surgery | Surgery | Chilo, | OPEN VENTRAL HERNIA | | 2019 | | | MD Jorje [address] | REPAIR WITH | | | | | [address] | BIOLOGICAL MESH | | | | | [place], [place] | | | | | | [address] | | | | | | [phone] | | | | | | | | +--------+ + + + + | 09/15/ | Office | Cardiology | Randell Franks, | | | 2019 | Visit | | [address] | | | | | | [address] [place], [place] | | | | | | [address] | | | | | | [phone] | | | | | | | [...] + + | [facility] | [address] [facility] | [place] [address] | | | SERVICES, CORE | [address] [...] [facility] | [address] | [place] [address] | | | [facility] | [address] | | | + + + + + HEMOGLOBIN A1C, BLOOD (03/06/2014 1:55 PM PDT) + + + + + + | Component | Value | Ref Range | Performed | Pathologist | | | | | At | Signature | + + + + + + | HEMOGLOBIN | 5.8 (H)Comment: Hbg A1c | <5.7 % | [facility] | | | A1C | Interpretive [...] NKECHI ROBERTS | [address] | [place] [address] | | | SERVICES, SPECIAL | PARK [...]
--- OUTSIDE RECORDS SUMMARY | ~2019-06-25 | XMS | Encounter Summary ---
Demographics + + + | Address | [address] | | | [place] [address] | + + + | Home Phone | | + + + | Preferred Language | Unknown | + + + | Marital Status | | + + + | Orthodox Affiliation | Unknown | + + + | Race | Unknown | + + + | Ethnic Group | Unknown | + + + Author + + + | Author | [facility] | | | and Jeffana | + + + | Organization | [facility] | | | and [...] Team Providers + +------+ + | Care Bond Clerk Name | Role | Phone | [...] + + | 06/21/ | Telephone | [facility] | Christian Dawson, | Pre-Op (confirm | | 2019 | | CENTER CV INTRA OP | [address] | arrival for 06/22 | | | | [address] | [address] | procedure) | | | | [place], [place] | [place] [address] | | | | | [address] | [phone] | | | | | [phone] | | | +--------+ + + + [...]
--- OUTSIDE RECORDS SUMMARY | ~2019-06-25 | XMS | Encounter Summary ---
Demographics + + + | Address | [address] | | | [place] [address] | + + + | Home Phone | | + + + | Preferred Language | Unknown | + + + | Marital Status | | + + + | Tenriism Affiliation | Unknown | + + + | Race | Unknown | + + + | Ethnic Group | Unknown | + + + Author + + + | Author | [facility] | | | and Jeffana | + + + | Organization | [facility] | | | and [...] Team Providers + +------+ + | Care Military Lawyer Name | Role | Phone | + +------+ + PCP | Unavailable | + +------+ + Encounter Details +--------+ + + + + | Date | Type | Department | Care Team | Description | +--------+ + + + + | 11/20/ | Orders Only | [facility] | Conversion | | | 2016 | | NEPHROLOGY JESUS | Transaction, | | | | | [address] | Provider Unknown | | | | | [address] | | | | | | [address] | (Fax) | | | | | [phone] | | | +--------+ + + + [...]
--- OUTSIDE RECORDS SUMMARY | ~2019-06-25 | XMS | Encounter Summary ---
Demographics + + + | Address | [address] | | | [place] [address] | + + + | Home Phone [...] [place], [place] | | | | | [address] | | + + + + + | Ellie Vang | ECON | Unknown | | + + + + + Care Team Providers + +------+ + | Care Physician Industrial Name | Role | Phone | [...] | | | [address] | [facility] | | | | | Mailcode: Center | [place], [place] | | | | | [facility] and | [address] | | | | | [facility] 2 | [phone] | | | | | [place], [place] | | | | | | [address] | | | | | | [phone] | | | +--------+ + + + [...] Rd | | | | | | [place], [place] | | | | | | [address] | | | | | | [phone] | | | | | | | | +--------+ + + + + | 08/19/ | Surgery | Surgery | Chilo | OPEN VENTRAL HERNIA | 2019 | | | Jorje, MD [address] | REPAIR WITH | | | | | [address] | BIOLOGICAL MESH | | | | | [place], [place] | | | | | | [address] | | | | | | [phone] | | | | | | | | +--------+ + + + + | 09/15/ | Office | Cardiology | Randell Franks, | | | 2019 | Visit | | [address] | | | | | | [place] [facility] [place] | | | | | | [address] | | | | | | [phone] | | | | | | | | +--------+ + + + + documented as of this encounter Visit Diagnoses Not on filedocumented in this encounter"
--- OUTSIDE RECORDS SUMMARY | ~2019-06-25 | XMS | Encounter Summary ---
Demographics + + + | Address | [address] | | | [place] [address] | + + + | Home Phone [...] [place], [place] | | | | | [address] | | + + + + + | Ellie Vang | ECON | Unknown | | + + + + + Care Team Providers + +------+ + | Care Bonderite Operator Name | Role | Phone | [...] | | | | | | [place] [address] | | | | | | [phone] | | | +--------+ + + + [...] Rd | | | | | | [place], [place] | | | | | | [address] | | | | | | [phone] | | | | | | | | +--------+ + + + + | 08/19/ | Surgery | Surgery | Chilo, | OPEN VENTRAL HERNIA | | 2019 | | | MD Jorje [address] | REPAIR WITH | | | | | [address] | BIOLOGICAL MESH | | | | | [place], [place] | | | | | | [address] | | | | | | [phone] | | | | | | | | +--------+ + + + + | 09/15/ | Office | Cardiology | Randell Franks, | | | 2019 | Visit | | [address] | | | | | | [place], [place] | | | | | | [address] | | | | | | [phone] | | | | | | | | +--------+ + + + + documented as of this encounter Visit Diagnoses Not on filedocumented in this encounter"
--- OUTSIDE RECORDS SUMMARY | ~2019-06-25 | XMS | Encounter Summary ---
Demographics + + + | Address | [address] | | | [place] [address] | + + + | Home Phone [...] + | Katalina Padilla | ECON | [address] | | | | | [place], [place] | | | | | [address] | | + + + + + | Ellie Vang | ECON | Unknown | | + + + + + Care Team Providers + +------+ + | Care Ruby Developer Name | Role | Phone | [...] | LAPAROSCOPIC | | 2013 | | [facility] | [address] | CHOLECYSTECOMY WITH | | | | Admitting Desk | Clarence Bonner [place], | INTRA-OP | | | | Located on the | [place] [address] | CHOLANGIOGRAM | | | | floor [address] | [phone] | | | | | [address] | | | | | | [place], [place] | | | | | | [address] | | | +--------+---------+ + + + [...] the resident s note. PRADIP STARR MD [facility] [address] [facility] [place] [address] orrest, Maryam Yu MD - 1:05 PM PDT [facility] DEPARTMENT OF SURGERY EMERGENCY GENERAL [...] to the [facility] ED ([place], [place]) on 02/06/14, with a week hi story of RUQ abdominal pain that radiates to her back. There, she was found to have leukocyt osis and multiple tiny, mobile stones, + sonographic Peterson's sign on abdominal ultrasound, concerning for acute cholecystitis. She was givenIV antibiotics (cipro, flagyl) and pain med s, then transferred to [facility] by [facility] for further care. Ms. Romero endorsed [...] up with Trauma Emergency General Surgery at [facility] In 4 weeks. (follow up in 2-4 weeks ) Contact information [address] [facility] Mailcode: L223a [facility] [place] [address] Thank you for the [...] the resident s note. PRADIP STARR MD [facility] [address] [place] [id number] orrest, Maryam Yu MD - 5:17 AM PDT [facility] [place] DEPARTMENT OF SURGERY EMERGENCY GENERAL SURGERY Division [...] tolerated MARYAM RHODES MD PGY-1, General Surgery 14342 pager number [facility] [place] A [address] [place] [facility] [place] [address] documented in this encoun ter Plan of [...] Rd | | | | | | [place], [place] | | | | | | [address] | | | | | | [phone] | | | | | | | | +--------+ + + + + | 08/19/ | Surgery | Surgery | Chilo, | OPEN VENTRAL HERNIA | | 2019 | | | MD Jorje [address] | REPAIR WITH | | | | | [address] | BIOLOGICAL MESH | | | | | [place], [place] | | | | | | [address] | | | | | | [phone] | | | | | | | | +--------+ + + + + | 09/15/ | Office | Cardiology | Randell Franks, | | | 2019 | Visit | Analisa CARVAJAL [address] | | | | | | [place], [place] | | | | | | [address] | | | | | | [phone] | | | | | | | [...] + + | Performing | Address | City/State/[facility] | Phone Number | | Organization | | | | + + + + + | [facility] | [address] | [place], [place] | | | JUSTINE DAWN OF JAKY | [address] | [address] | | | TESTS | | | [...] [facility] | [address] | [place], [place] | | | JUSTINE DAWN OF JAKY | [facility] | [address] | | | TESTS | | | [...] [facility] | [address] | [place], [place] | | | [facility]ARE | [address] | [address] | | | TESTS | | | [...] [facility] | [address] | [place], [place] | | | JUSTINE DAWN OF JAKY | [address] | [address] | | | TESTS | | | [...] [facility] | [address] | [place] [address] | | | SERVICES, | [address] [...] | + + + + + | [employer] | [address] | [place] [address] | | | SERVICES, | [address] [...] [facility] | [address] | [place], [place] | | | JUSTINE DAWN OF CARE | [address] | [address] | | | TESTS | | | [...] [facility] | [address] | [place] [address] | | | SERVICES, CORE | [address] [...] [facility] | [address] | [place] [address] | | | SERVICES, CORE | PARK [...] [facility] | [address] | [place] [address] | | | SERVICES, CORE | PARK [...] + + | [facility] | [address] [facility] | [place] [address] | | | SERVICES, LYDIA | CLARENCE [...] | | | LABORATORY | | | [place]AN[place] | | | SERVICES, | | | [...] | [facility] | [address] | [place] [address] | | | SERVICES, CORE | CLARENCE [...] [facility] | [address] | [place], [place] | | | JUSTINE DAWN OF JAKY | [facility] | [address] | | | TESTS | | | [...] pattern. | | | | | | [employer] [employer] | | | | | | sections [...] [facility] | [address] | [place] [address] | | | PATHOLOGY | [address] [...]
--- OUTSIDE RECORDS SUMMARY | ~2019-06-25 | XMS | Encounter Summary ---
Demographics + + + | Address | [address] | | | [place] [address] | + + + | Home Phone [...] [place], [place] | | | | | [address] | | + + + + + | Ellie Vang | ECON | Unknown | | + + + + + Care Team Providers + +------+ + | Care Director Talent Name | Role | Phone | + +------+ + | Fadi Goodrich DO | PCP | | + +------+ + Encounter Details +--------+---------+ + + + | Date | Type | Department | Care Team | Description | +--------+---------+ + + + | 01/11/ | Office | Digestive Health | | Morbid obesity (HCC) | | 2018 | Visit | Center at [facility] 0004 | | (Primary Dx) | | | | [address] | | | | | | Mailcode: [place] | | | | | | [facility] and | | | | | | [facility] 2 | | | | | | [place], [place] | | | | | | [address] | | | | | | [phone] | | | +--------+---------+ + + + [...] of Class: 1055 until 1155 (60 minutes sohu-oe-admt with patient) Teaching Methods: PowerPoint and verbal [...] a journal with fluid/protein d. Transportation 7. [facility] Successful Weight Loss Surgery 8. Surgical [...] Rd | | | | | | [place], [place] | | | | | | [address] | | | | | | [phone] | | | | | | | | +--------+ + + + + | 08/19/ | Surgery | Surgery | Chilo, | OPEN VENTRAL HERNIA | | 2019 | | | MD Jorje [address] | REPAIR WITH | | | | | [address] | BIOLOGICAL MESH | | | | | [place], [place] | | | | | | [address] | | | | | | [phone] | | | | | | | | +--------+ + + + + | 09/15/ | Office | Cardiology | Randell Franks, | | | 2019 | Visit | | [address] | | | | | | [place], [place] | | | | | | [address] | | | | | | [phone] | | | | | | | | +--------+ + + + + documented as of this encounter Visit Diagnoses + + | Diagnosis | + + | Morbid obesity (HCC) - Primary Morbid obesity | + + documented in this encounter"
--- OUTSIDE RECORDS SUMMARY | ~2019-06-25 | XMS | Encounter Summary ---
Demographics + + + | Address | [address] | | | [place] [address] | + + + | Home Phone [...] + | Katalina Padilla | ECON | [address] | | | | | [place], [place] | | | | | [address] | | + + + + + | Ellie Vang | ECON | Unknown | | + + + + + Care Team Providers + +------+ + | Care Rn Ed Name | Role | Phone | + +------+ + | Fadi Goodrich DO | PCP | | + +------+ + Encounter Details +--------+------+ + + + | Date | Type | Department | Care Team | Description | +--------+------+ + + + | 05/27/ | Lab | Laboratory at [facility] | | History of Frandy-en-Y | | 2017 | | [address] | | gastric bypass; | | | | [place], [place] | | Ventral hernia | | | | [address] | | without obstruction | | | | [phone] | | or gangrene; Mixed | | [...] [place] | | | | | | [address] | | | | | | [phone] | | | | | | | | +--------+ + + + + | 08/19/ | Surgery | Surgery | Chilo, | OPEN VENTRAL HERNIA | | 2019 | | | MD [address] | REPAIR WITH | | | | | [address] | BIOLOGICAL MESH | | | | | [place], [place] | | | | | | [address] | | | | | | [phone] | | | | | | | | +--------+ + + + + | 09/15/ | Office | Cardiology | Randell Franks, | | | 2019 | Visit | | [address] | | | | | | [place], [place] | | | | | | [address] | | | | | | [phone] | | | | | | | [...] | + + + + + | [facility] | [address] | [place] [address] | | | SERVICES, CORE | CLARENCE [...] + + + + + | [facility] | [address] | [place] [address] | | | LYDIA RANGEL | CLARENCE [...] (H)Comment: Hgb A1C | <5.7 % | [facility] | | | A1C | Interpretive | [...] | + + + + + | [facility] | [address] | [place] [address] | | | SERVICES, SPECIAL | PARK [...] INTERPRETIVE | 70 - 180 nmol/L | [facility] | | | WHOLE | INFORMATION: [...] | | | | | determined by [facility] | | | | | | Laboratories. See | | | | | | Compliance Statement B: | | | | | | [employer].Powered/CSPerformed | | | | | | by [employer],[address] | | | | | | Liliana Martinez [facility],[place] | | | | | | [address] | | | | | | [phone].[employer]. | | | | | | comIsmael [...] [facility] | [address] | [place], [place] | | | [facility] | | [address] | | + + + + + [...] | | | LABORATORY | | | BULGARIAN | | | SERVICES, | | | [...] | + + + + + | [facility] | [address] | [place] [address] | | | SERVICES, CORE | CLARENCE [...] [facility] | [address] | [place] [address] | | | SERVICES, CORE | PARK [...] | + + + + + | [facility] | [address] | [place] [address] | | | SERVICES, CORE | CLARENCE [...] [facility] | [address] | [place] [address] | | | SERVICES, CORE | CLARENCE [...] [facility] | [address] | [place] [address] | | | SERVICES, CORE | PARK [...] | + + + + + | [facility] [employer] | [address] | [place] [address] | | | SERVICES, CORE | PARK [...]
--- OUTSIDE RECORDS SUMMARY | ~2019-06-25 | XMS | Encounter Summary ---
Demographics + + + | Address | [address] | | | [place] [address] | + + + | Home Phone [...] [place], [place] | | | | | [address] | | + + + + + | Ellie Vang | ECON | Unknown | | + + + + + Care Team Providers + +------+ + | Care Certified Registered Dental Assistant Name | Role | Phone | [...] | | | | | | [place] [address] | | | | | | [phone] | | | +--------+ + + + [...] Rd | | | | | | [place], [place] | | | | | | [address] | | | | | | [phone] | | | | | | | | +--------+ + + + + | 08/19/ | Surgery | Surgery | Chilo, | OPEN VENTRAL HERNIA | | 2019 | | | MD Jorje [address] | REPAIR WITH | | | | | [address] | BIOLOGICAL MESH | | | | | [place] | | | | | | [address] | | | | | | [phone] | | | | | | | | +--------+ + + + + | 09/15/ | Office | Cardiology | Randell Franks, | | | 2019 | Visit | | [address] | | | | | | [place] | | | | | | [address] | | | | | | [phone] | | | | | | | | +--------+ + + + + documented as of this encounter Visit Diagnoses Not on filedocumented in this encounter"
--- OUTSIDE RECORDS SUMMARY | ~2019-06-25 | XMS | Encounter Summary ---
Demographics + + + | Address | [address] | | | [place] [address] | + + + | Home Phone [...] + | Katalina Padilla | ECON | [address] | | | | | [place], [place] | | | | | [address] | | + + + + + | Ellie Vang | ECON | Unknown | | + + + + + Care Team Providers + +------+ + | Care Automobile Service Advisor Name | Role | Phone | + +------+ + | Fadi Goodrich DO | PCP | | + +------+ + Encounter Details +--------+ + + + + | Date | Type | Department | Care Team | Description | +--------+ + + + + | 06/09/ | Abstract | Digestive Health | Kathy Feldman, | | | 2012 | | Center at [facility] [address] | MEDIA ARTS PROFESSOR [address] | | | | | [address] [place] | [facility] [address] | | | | | Mailcode: Center | [place], [place] | | | | | [facility] Health and | [address] | | | | | [facility] 2 | [phone] | | | | | [place], [place] | | | | | | [address] | | | | | | [phone] | | | +--------+ + + + [...] Rd | | | | | | [facility] [place] | | | | | | [address] | | | | | | [phone] | | | | | | | | +--------+ + + + + | 08/19/ | Surgery | Surgery | Chilo, | OPEN VENTRAL HERNIA | | 2019 | | | MD Jorje [address] | REPAIR WITH | | | | | [address] | BIOLOGICAL MESH | | | | | [place], [place] | | | | | | [address] | | | | | | [phone] | | | | | | | | +--------+ + + + + | 09/15/ | Office | Cardiology | Randell Franks, | | | 2019 | Visit | | [address] | | | | | | [place], [place] | | | | | | [address] | | | | | | [phone] | | | | | | | | +--------+ + + + + documented as of this encounter Visit Diagnoses Not on filedocumented in this encounter"
--- OUTSIDE RECORDS SUMMARY | ~2019-06-25 | XMS | Encounter Summary ---
Demographics + + + | Address | [address] | | | [place] [address] | + + + | Home Phone [...] [place], [place] | | | | | [address] | | + + + + + | Ellie Vang | ECON | Unknown | | + + + + + Care Team Providers + +------+ + | Care Fiber Optics Supervisor Name | Role | Phone | [...] | | | | Mailcode: Center | [place], [place] | with insulin therapy | | | | for Health and | [address] | (HCC) | | | | [facility] 2 | [phone] | | | | | [place], [place] | | | | | | [address] | | | | | | [phone] | | | +--------+---------+ + + + [...] of Visit: 1:30 to 1:55 (25 minutes apzc-mz-[id number] with patient). Pt seen tog ether with Rossana Espinoza RD (training) SUBJECTIVE: Working with RN to get access to [employer] water exercises. States she was down to 374lbs by following LRD but with complications (n/v, fainting) - need to obtain records from PCP [facility]. Food Allergies: No Current Physical Activity: Nothing - plans to start swimming this week Diet Recall [place] (100kcal) + Activia Light - 60kcal Atkins [...] post-surgery diet progression. 4. Call or send [employer] message to dietitian with any questions. Contact information was provided. Follow up with dietitian via telephone 1 week after beginning water exercises for weight ch addie. Yuli Childs RD, [facility], [place] Pager# [phone] Rossana Espinoza MS, RD Pgr #[phone] documented in this enco unter Plan of [...] Rd | | | | | | [place] | | | | | | [address] | | | | | | [phone] | | | | | | | | +--------+ + + + + | 08/19/ | Surgery | Surgery | Chilo, | OPEN VENTRAL HERNIA | | 2019 | | | MD Demond Rec[address] | REPAIR WITH | | | | | [address] | BIOLOGICAL MESH | | | | | [place] | | | | | | [address] | | | | | | [phone] | | | | | | | | +--------+ + + + + | 09/15/ | Office | Cardiology | Randell Franks, | | | 2019 | Visit | | [address] | | | | | | [place], [place] | | | | | | [address] | | | | | | [phone] | | | | | | | | +--------+ + + + + documented as of this encounter Procedures + +--------+ + + + | Procedure Name | Priori | Date/Time | Associated Diagnosis | Comments | | | ty | | | | + +--------+ + + + | MD MNT RE-ASSESSMNT | Routin | 12/27/2014 | [...] Diagnosis | + + | Morbid obesity ([facility]) - Primary Morbid obesity | + + | Diabetes mellitus with insulin therapy ([facility]) | + + documented in this encounter
--- OUTSIDE RECORDS SUMMARY | ~2019-06-25 | XMS | Encounter Summary ---
Demographics + + + | Address | [address] | | | [place] [address] | + + + | Home Phone [...] [place], [place] | | | | | [address] | | + + + + + | Ellie Vang | ECON | Unknown | | + + + + + Care Team Providers + +------+ + | Care Pharmacology Associate Name | Role | Phone | [...] Center | | | | | | [place], [place] | | | | | | [address] | | | | | | [phone] | | | +--------+ + + + [...] | | | | | | [facility] [place] | | | | | | [address] | | | | | | [phone] | | | | | | | | +--------+ + + + + | 08/19/ | Surgery | Surgery | Chilo | OPEN VENTRAL HERNIA | | 2019 | | | MD [address] | REPAIR WITH | | | | | [address] | BIOLOGICAL MESH | | | | | [place], [place] | | | | | | [address] | | | | | | [phone] | | | | | | | | +--------+ + + + + | 09/15/ | Office | Cardiology | Randell Franks, | | | 2019 | Visit | | [address] | | | | | | [place], [place] | | | | | | [address] | | | | | | [phone] | | | | | | | [...] | | | | | | | [place], [place] | | | | | | [address] | | | | | | | [...] | | | | artery. A 5.5 Lithuanian | | | | | | Ozzy [...] | + +---------+ + + | [facility] DEPARTMENT OF | | | | | RADIOLOGY | | | | + +---------+ + + documented in this encounter Visit Diagnoses Not on filedocumented in this encounter
--- OUTSIDE RECORDS SUMMARY | ~2019-06-25 | XMS | Encounter Summary ---
Demographics + + + | Address | [address] | | | [place] [address] | + + + | Home Phone [...] + | Katalina Padilla | ECON | [address] | | | | | [place], [place] | | | | | [address] | | + + + + + | Ellie Vang | ECON | Unknown | | + + + + + Care Team Providers + +------+ + | Care Malt Liquors Sales Supervisor Name | Role | Phone | [...] INCISIONAL HERNIA | | 2015 | | [facility] | [address] | REPAIR | | | | Admitting Desk | [address] | | | | | Located on the 9 | [place], [place] | | | | | floor [address] | [address] | | | | | [address] | [phone] | | | | | [place], [place] | | | | | | [address] | | | +--------+---------+ + + + [...] port site who was transferre d to [facility] for concern of an incarcerated hernia. [...] mouth once daily. , Historical Med CALCIUM CRB&JCF-I4-GMV26-GENIS ORAL Take 1 tablet by mouth two [...] 10:40 AM Randell Franks Cardiology Preventive at [facility] [phone] Cardiology 04/09/2015 1:00 PM Egs Ppv Tra Trauma Emergency General Surgery at [facility] [phone] TRAU[facility]ENTE Outstanding labs/studies: None Discharging Physician: GABO LANGSTON MD Attending Physician: Dr. Cantu PCP: Fadi Goodrich DO Signed: GABO LANGSTON MD Pager #[phone] Surgical Black Off Worker [facility] Associated attestation - Tye Carrillo DO - 03/12/2015 9:12 AM PDTAttending: I discussed this patient with the resident and agree with the assessment and plan as outlin ed in this note and participated in the planning of care. Tye Carrillo DO, SIDRA, FACS Division of Trauma, Critical Care & Acute Care Surgery [facility] [phone] documented in this encounter Medications at Time of Discharge + + + +---------+--------+ + | Medication | Sig | Dispensed | Refills | Start | End Date | | | | | | Date | | + + + +---------+--------+ + | CALCIUM | Take 2 tablets by | | 0 | | | | CRB&OWJ-Q3-OAM09-GEN | mouth two times | | | [...] from the original. [facility] [place] DEPARTMENT OF SURGERY EMERGENCY GENERAL SURGERY Division [...] obesity with known ventral hernias transferred to [facility] for surgical managem ent of ventral hernia, now s/p repair. Post surgical pain: -patient ready for d/c, discussed f/u. Patient lives far away and has other appointments at [facility]. Will attempt to coordinate appointments. Discharge Plan: D/c today GABO LANGSTON MD Pager #[phone] Surgical Black Off Worker [facility] ick Mendez, Salomón rose R - 03/02/2015 1:12 PM PDT [facility] DEPARTMENT OF SURGERY EMERGENCY GENERAL SURGERY Division of Trauma and Critical Care Attending Physician: Shahid Cantu MD Progress Note Note Date: 03/02/2015 Admission Date: 2015 DYLAN ROMERO, Hospital Day #2 40 F PMH morbid obesity (BMI 71 today), DM2, depression, GERD, h/o stroke at age 18, and kn own ventral hernias transferred to [facility] for surgical treatment of suspected incarcerated [...] obesity with known ventral hernias transferred to [facility] for surgical managem ent of ventral [...] will be robel ing her home to [place], [place]. CALVIN ROMERO MD PGY-1 Anesthesiology Pager: [phone] [facility] A [address] [place] [address] Karthik Oneill MD - 03/02/2015 8:26 AM [id number] Calvin William Md - 03/01/2015 5:34 PM PDT Brief Post Operative Note: 40 F PMH morbid obesity (BMI 71 today), DM2, depression, GERD, h/o stroke at age 18, and kn own ventral hernias transferred to [facility] for surgical treatment of incarcerated ventral [...] kg/(m^2). Intake/Output Summary (Last 24 hours) at 03/01/158 Last data filed at 03/01/15 1400 Gross [...] control CALVIN ROMERO MD PGY-1 Anesthesiology Pager: [phone] signed by Calvin Romero Md at 03/01/2015 [...] Rd | | | | | | [facility] [place] | | | | | | [address] | | | | | | [phone] | | | | | | | | +--------+ + + + + | 08/19/ | Surgery | Surgery | Chilo, | OPEN VENTRAL HERNIA | | 2019 | | | MD [address] | REPAIR WITH | | | | | [address] | BIOLOGICAL MESH | | | | | [place], [place] | | | | | | [address] | | | | | | [phone] | | | | | | | | +--------+ + + + + | 09/15/ | Office | Cardiology | Randell Franks, | | | 2020 | Visit | | [address] | | | | | | [place], [place] | | | | | | [address] | | | | | | [phone] | | | | | | | [...] ---+ | Transcriptions | + ---+ | Van, Philbert Y, MD - 03/02/2015 9:15 AM PDT Date of Service: 03/01/2015 | | Attending Surgeon: Shahid Cantu MD Parquet Floor Layer(s): Howie Angeles MD, R5 | | Karthik [...] Critical Care & Acute Care | | SurgeryPhiPRINCE Pham/CARLOSLDD: 03/02/2015 08:25:39DT: 03/02/2015 09:15:57Job #: | | [id number] | | | |Dr. Chris Cantu was present and scrubbed for the entirety of the case. | | | | | | | |Karthik Gonzalez MD | | | |Pursuant to federal Medicare and Medicaid regulations I was present for the entire procedur e. | | | | | | | |Shahid Cantu MD | |Director Regulatory Affairs | |Trauma, Critical Care & Acute Care Surgery | | | | | | | |Shahid Cantu MD | |[place]ANDE | | | | | | /[id number] | + ---+ CAPILLARY BLOOD GLUCOSE (NO [...] - [facility] | [address] | [place], [place] | | | JUSTINE DAWN OF CARE | [facility] | [address] | | | TESTS | | | [...] AMES | [address] | [place], [place] | | | JUSTINE DAWN OF [facility] | [facility] | [address] | | | TESTS | | | [...] | [facility] | [address] | [place], [place] | | | JUSTINE DAWN OF JAKY | [address] | [address] | | | TESTS | | | [...] [place] | [address] | [place], [place] | | | [place] POINT OF CARE | [address] | [address] | | | TESTS | | | [...] AMES | [address] | [place], [place] | | | JUST[facility] DAWN OF [facility] | [facility] | [address] | | | TESTS | | | [...] [facility] | [address] | [place], [place] | | | JUSTINE DAWN OF JAKY | [address] | [address] | | | TESTS | | | [...] | + + + + + | [facility] | [address] | [place] [address] | | | SERVICES, CORE | CLARENCE [...] | | | LABORATORY | | | U[facility]AN | | | SERVICES, | | | [facility] | [address] | [place] [address] | | | SERVICES, CORE | CLARENCE [...] AMES | [address] | [place], [place] | | | JUSTINE DAWN OF CARE | [address] | [address] | | | TESTS | | | [...] MARQUAM | [address] | [place], [place] | | | JUSTINE DAWN OF CARE | [address] | [address] | | | TESTS | | | [...] | [facility] | [address] | [place], [place] | | | JUSTINE DAWN OF JAKY | [address] | [address] | | | TESTS | | | [...] AMES | [address] | [place], [place] | | | JUSTINE DAWN OF CARE | [address] | [address] | | | TESTS | | | [...] MARQUAM | [address] | [place], [place] | | | JUSTINE DAWN OF CARE | [address] | [address] | | | TESTS | | | [...] | + + + + + | [facility] | [address] | [place] [address] | | | SERVICES, CORE | CLARENCE [...] MARQU[place] | [address] | [place], [place] | | | JUSTINE DAWN OF CARE | [address] | [address] | | | TESTS | | | [...] | | | | | PRN, Starting Thu03/01/15 at 1143, | | | | | | | Until Thu03/01/15 at 1207 | | | | | | + +--------+ +-------+------+ + +---+---+ | | | +---+---+ documented in this encounter
--- OUTSIDE RECORDS SUMMARY | ~2019-06-25 | XMS | Encounter Summary ---
Demographics + + + | Address | [address] | | | [place] [address] | + + + | Home Phone | | + + + | Preferred Language | Unknown | + + + | Marital Status | | + + + | Zoroastrian Affiliation | Unknown | + + + | Race | Unknown | + + + | Ethnic Group | Unknown | + + + Author + + + | Author | [facility] | | | and Jeffana | + + + | Organization | [facility] [...] Team Providers + +------+ + | Care Oral Surgery Physician Name | Role | Phone | + +------+ + PCP | Unavailable | + +------+ + Encounter Details +--------+ + + + + | Date | Type | Department | Care Team | Description | +--------+ + + + + | 10/20/ | Orders Only | [facility] | Conversion | | | 2016 | | NEPHROLOGY JESUS | Transaction, | | | | | [address] | Provider Unknown | | | | | [address] | | | | | | [address] | (Fax) | | | | | [phone] | | | +--------+ + + + [...]
--- OUTSIDE RECORDS SUMMARY | ~2019-06-25 | XMS | Encounter Summary ---
Demographics + + + | Address | [address] | | | [place] [address] | + + + | Home Phone [...] [place], [place] | | | | | [address] | | + + + + + | Ellie Vang | ECON | Unknown | | + + + + + Care Team Providers + +------+ + | Care Charge Lpn Name | Role | Phone | + [...] | Pain | Diagnoses | Tilgner, | Grab Jack Worker Psych | | | | Management | Morbid | Shereen Murcia ACNP | [address] | | | | | obesity with | [address] | | | | | BMI of [address] | [address] | Mailcode: | | | | | and over, | [place], [place] | [address] | | | | | adult ([facility]) | [address] | for Health | | | | | Procedures | Phone: | and Healing, | | | | | CONSULT TO | [phone] | Building [address], | | | | | PAIN | Fax: | 15th Floor | | | | | MANAGEMENT | [phone] | [place], [place] | | | | | [place] | | [address] | | | | | PSYCHIATRIC | | Phone: | | | | | DIAGNOSTIC | | [phone] | | | | | EVAL, NO MED | | Fax: | | | | | [place] | | [phone] | | | | | PSYCH TSTNG | | | | | | | PSYCH/PHYS | | | +--------+---------+ + + + + Encounter Details +--------+---------+ + + + | Date | Type | Department | Care Team | Description | +--------+---------+ + + + | 10/02/ | Office | [facility] at [facility] | Leslie Mistry, | Morbid obesity | | 2018 | Visit | 15th Floor [address] | PhD [address] [employer] | ([facility]); Bipolar | | | | Brenton Flannery Mailcode: | [address] | affective disorder, | | | | [facility] Center for | [place], [place] | remission status | | | | Health and Healing, | [address] | unspecified ([facility]); | | | | | [phone] | BMI 60.0-69.9, adult | | | | Floor [place], [place] | | ([facility]); Anxiety | | | | [address] | | | | | | [phone] | | | +--------+---------+ + + + [...] Name: Elzbieta Cristina : 1975 Medical Record: [id number] Age: 42 y.o. Weight today, per patient report: 305 lbs Weight on 09/11/17: 389, BMI 73.54 Identifying Information: Elzbieta Cristina is a 42 y.o. female who lives with her mother in [place], [place]. She was referred for psychological evaluation [...] of cereal with skim milk and a tajik yogurt L: white bread and cheese and [...] laundry. For enjoym ent the patient watches [employer] with her girlfriend. She is socially active [...] Social History: Elzbieta Cristina was born in [place] and lived with her mother and sister. [...] time I spent was approximately 60 minutes tmfc-ue-snku with the patient and approxima tely 2 hours of vpa-ufeb-su-face testing, interpreting and synthesizing results. Leslie Mistry, PhD Clinical Psychologist [facility] [address] [place] [address] and [facility], 15th [place] [address] [id number] signed by Leslie Mistry, PhD at 10/08/2017 [...] Rd | | | | | | [place], [place] | | | | | | [address] | | | | | | [phone] | | | | | | | | +--------+ + + + + | 08/19/ | Surgery | Surgery | Chilo, | OPEN VENTRAL HERNIA | | 2019 | | | MD [address] | REPAIR WITH | | | | | [address] | BIOLOGICAL MESH | | | | | [place], [place] | | | | | | [address] | | | | | | [phone] | | | | | | | | +--------+ + + + + | 09/15/ | Office | Cardiology | Randell Franks, | | | 2019 | Visit | | [address] | | | | | | [place], [place] | | | | | | [address] | | | | | | [phone] | | | | | | | [...]
--- OUTSIDE RECORDS SUMMARY | ~2019-06-25 | XMS | Encounter Summary ---
Demographics + + + | Address | [address] | | | [place] [address] | + + + | Home Phone [...] + | Katalina Padilla | ECON | [address] | | | | | [place], [place] | | | | | [address] | | + + + + + | Ellie Vang | ECON | Unknown | | + + + + + Care Team Providers + +------+ + | Care Automobile Travel Club Counselor Name | Role | Phone | [...] [address] | | | | | [place], [place] | [address] | | | 03/03/ | | [address] | [place], [place] | | | 2014 | | [phone] | [address] | | | | | | [phone] | | | | | | | [...] port site who was transferre d to [facility] for concern of an incarcerated hernia. On [...] mouth once daily. , Historical Med CALCIUM CRB&CUM-R9-XMH51-GENIS ORAL Take 1 tablet by mouth two [...] 10:40 AM Randell Franks Cardiology Preventive at [facility] [phone] Cardiology 04/09/2015 1:00 PM Egs Ppv Tra Trauma Emergency General Surgery at [facility] [phone] TRAUMA CENTE Outstanding labs/studies: None Discharging Physician: GABO LANGSTON MD Attending Physician: Dr. Cantu PCP: Fadi Goodrich DO Signed: GABO LANGSTON MD Pager #[phone] Surgical Palliative Care Nurse [facility] Associated attestation - Tye Carrillo DO - 03/12/2015 9:12 AM PDTAttending: I discussed this patient with the resident and agree with the assessment and plan as outlin ed in this note and participated in the planning of care. Tye Carrillo DO, MBA, FACS Division of Trauma, Critical Care & Acute Care Surgery [facility] [phone] documented in this encounter Medications at Time of Discharge + + + +---------+--------+ + | Medication | Sig | Dispensed | Refills | Start | End Date | | | | | | Date | | + + + +---------+--------+ + | CALCIUM | Take 2 tablets by | | 0 | | | | CRB&ZJX-W3-ODV40-GEN | mouth two times | | | [...] original. [facility] [place] DEPARTMENT OF SURGERY EMERGENCY GENERAL SURGERY Division [...] obesity with known ventral hernias transferred to [facility] for surgical managem ent of ventral hernia, now s/p repair. Post surgical pain: -patient ready for d/c, discussed f/u. Patient lives far away and has other appointments at [facility]. Will attempt to coordinate appointments. Discharge Plan: D/c today GABO LANGSTON MD Pager #[phone] Surgical Palliative Care Nurse [facility] Nataliia Mendez Salomón rose R - 03/02/2015 1:12 PM PDT [facility] DEPARTMENT OF SURGERY EMERGENCY GENERAL SURGERY Division of Trauma and Critical Care Attending Physician: Shahid Cantu MD Progress Note Note Date: 03/02/2015 Admission Date: 2015 DYLAN ROMERO, Hospital Day #2 40 F PMH morbid obesity (BMI 71 today), DM2, depression, GERD, h/o stroke at age 18, and kn own ventral hernias transferred to [facility] for surgical treatment of suspected incarcerated yuriy [...] obesity with known ventral hernias transferred to [facility] for surgical managem ent of ventral hernia, [...] will be robel ing her home to [place], [place]. CALVIN ROMERO MD PGY-1 Anesthesiology Pager: [phone] [facility] A [address] [place] [address] Karthik Oneill MD - 03/02/2015 8:26 AM [id number] Calvin William Md - 03/01/2015 5:34 PM PDT Brief Post Operative Note: 40 F PMH morbid obesity (BMI 71 today), DM2, depression, GERD, h/o stroke at age 18, and kn own ventral hernias transferred to [facility] for surgical treatment of incarcerated ventral herni [...] control CALVIN ROMERO MD PGY-1 Anesthesiology Pager: [phone] signed by Calvin Romero Md at 03/01/2015 [...] [place] | | | | | | [address] | | | | | | [phone] | | | | | | | | +--------+ + + + + | 08/19/ | Surgery | Surgery | Chilo, | OPEN VENTRAL HERNIA | | 2019 | | | MD [address] | REPAIR WITH | | | | | [address] | BIOLOGICAL MESH | | | | | [place], [place] | | | | | | [address] | | | | | | [phone] | | | | | | | | +--------+ + + + + | 09/15/ | Office | Cardiology | Randell Franks, | | | 2019 | Visit | | MD [address] | | | | | | [place], [place] | | | | | | [address] | | | | | | [phone] | | | | | | | [...] | | Attending Surgeon: Shahid Cantu MD Rn Recruitment(s): Howie Angeles MD, R5 | | Karthik [...] 03/02/2015 08:25:39DT: 03/02/2015 09:15:57Job #: | | [id number] | | | |Dr. Chris Cantu was present and scrubbed for the entirety of the case. | | | | | | | |Karthik Gonzalez MD | | | |Pursuant to federal Medicare and Medicaid regulations I was present for the entire procedur e. | | | | | | | |Shahid Cantu MD | |Transportation Planning Engineer | |Trauma, Critical Care & Acute Care Surgery | | | | | | | |Shahid Cantu MD | |TBK/MODL | | | | | | /[id number] | + ---+ CAPILLARY BLOOD GLUCOSE (NO [...] YAK[facility]AM | [address] | [place], [place] | | | JUSTINE DAWN OF JAKY | [facility] | [address] | | | TESTS | | | [...] - 99 mg/dL | [facility] - | | | GLUCOSE, | | [...] AMES | [address] | [place], [place] | | | [place] POINT OF CARE | [address] | [address] | | | TESTS | | | [...] KWAKU | [address] | [place], [place] | | | JUSTINE DAWN OF JAKY | [facility] | [address] | | | TESTS | | | [...] Y[place] | [address] | [place], [place] | | | JUSTINE DAWN OF J[place] | [facility] | [address] | | | TESTS | | | [...] - 99 mg/dL | [facility] - | | | GLUCOSE, | | [...] AMES | [address] | [place], [place] | | | [place] POINT OF CARE | [address] | [address] | | | TESTS | | | [...] KWAKU | [address] | [place], [place] | | | ABRAHAN DAWN | [facility] | [address] | | | TESTS | | | [...] | + + + + + | [facility] | [address] | [place] [address] | | | SERVICES, CORE | CLARENCE [...] | | | LABORATORY | | | TURKMEN | | | SERVICES, | | | [...] [facility] | [address] | [place] [address] | | | SERVICES, CORE | CLARENCE [...] - 99 mg/dL | [facility] - | | | GLUCOSE, | | [...] AMES | [address] | [place], [place] | | | JUSTINE DAWN OF CARE | [address] | [address] | | | TESTS | | | [...] MARQUAM | [address] | [place], [place] | | | JUSTINE DAWN OF CARE | [address] | [address] | | | TESTS | | | [...] [place] | [address] | [place], [place] | | | JUSTINE DAWN OF CARE | [address] | [address] | | | TESTS | | | [...] - 99 mg/dL | [facility] - | | | GLUCOSE, | | [...] AMES | [address] | [place], [place] | | | JUSTINE DAWN OF CARE | [address] | [address] | | | TESTS | | | [...] MARQUAM | [address] | [place], [place] | | | JUSTINE DAWN OF CARE | [address] | [address] | | | TESTS | | | [...] | + + + + + | [facility] | [address] [facility] | [place] [address] | | | SERVICES, CORE | CLARENCE [...] MARQU[place] | [address] | [place], [place] | | | JUSTINE DAWN OF JAKY | [address] | [address] | | | TESTS | | | [...] 8:32 | | | | | on [facility] 03/01/15 at 0900, Until | | [...] injection 1 dose, | | | Starting [facility] 03/01/15 at 1215, | | | Until [facility] 03/01/15 at 1216 | | + +---+ | | | + +---+ + +-------+ +-------+---+---+ | FLUoxetine (PROZAC) capsule 40 | Given | 03/03/20 | 40 mg | | | | mg 40 mg, oral, DAILY, First | | 15 8:32 | | | | | dose on [facility] 03/01/15 at 0900, Until | | [...] PDT | | | | | Starting [facility] 03/01/15 at 1056, | | | | | | | Until [facility] 03/01/15 at 1436, | | | [...] mL/hr | mL/hr | | | Starting [facility] 03/01/15 at 0045, | | AM [...] | | | | First dose on [facility] 03/01/15 at 0900, | | AM [...] | | | | | dose on [facility] 03/01/15 at 0900, Until | | [...] | | | | | dose on [facility] 03/01/15 at 0900, Until | | [...]
--- OUTSIDE RECORDS SUMMARY | ~2019-06-25 | XMS | Encounter Summary ---
Demographics + + + | Address | [address] | | | [place] [address] | + + + | Home Phone [...] [place], [place] | | | | | [address] | | + + + + + | Ellie Vang | ECON | Unknown | | + + + + + Care Team Providers + +------+ + | Care Breeding Technician Name | Role | Phone | [...] INCISIONAL HERNIA | | 2015 | | [facility] | [address] | REPAIR | | | | Admitting Desk | [address] | | | | | Located on the 9 | [place], [place] | | | | | floor [address] | [address] | | | | | [address] | [phone] | | | | | [place], [place] | | | | | | [address] | | | +--------+---------+ + + + [...] port site who was transferre d to [facility] for concern of an incarcerated [...] mouth once daily. , Historical Med CALCIUM CRB&IEK-Y1-YVN97-GENIS ORAL Take 1 tablet by mouth two [...] 10:40 AM Randell Franks Cardiology Preventive at [facility] [phone] Cardiology 04/09/2015 1:00 PM Egs Ppv Tra Trauma Emergency General Surgery at [facility] [phone] [facility] Outstanding labs/studies: None Discharging Physician: GABO LANGSTON MD Attending Physician: Dr. Cantu PCP: Fadi Goodrich DO Signed: GABO LANGSTON MD Pager #[phone] Surgical Route Sales Delivery Driver [facility] Associated attestation - Tye Carrillo DO - 03/12/2015 9:12 AM PDTAttending: I discussed this patient with the resident and agree with the assessment and plan as outlin ed in this note and participated in the planning of care. Tye Carrillo DO, SIDRA, FACS Division of Trauma, Critical Care & Acute Care Surgery [facility] [phone] documented in this encounter Medications at Time of Discharge + + + +---------+--------+ + | Medication | Sig | Dispensed | Refills | Start | End Date | | | | | | Date | | + + + +---------+--------+ + | CALCIUM | Take 2 tablets by | | 0 | | | | CRB&DPC-R5-GGQ53-GEN | mouth two times | | | [...] might be differ ent from the original. [facility] DEPARTMENT OF SURGERY EMERGENCY GENERAL SURGERY Division [...] obesity with known ventral hernias transferred to [facility] for surgical managem ent of ventral hernia, now s/p repair. Post surgical pain: -patient ready for d/c, discussed f/u. Patient lives far away and has other appointments at [facility]. Will attempt to coordinate appointments. Discharge Plan: D/c today GABO LANGSTON MD Pager #[phone] Surgical Route Sales Delivery Driver [facility] ick Mendez, Salomón rose R - 03/02/2015 1:[address] [facility] DEPARTMENT OF SURGERY EMERGENCY GENERAL SURGERY Division of Trauma and Critical Care Attending Physician: Shahid Cantu MD Progress Note Note Date: 03/02/2015 Admission Date: 2015 DYLAN ROMERO, Hospital Day #2 40 F PMH morbid obesity (BMI 71 today), DM2, depression, GERD, h/o stroke at age 18, and kn own ventral hernias transferred to [facility] for surgical treatment of suspected [...] obesity with known ventral hernias transferred to [facility] for surgical managem ent of [...] will be robel ing her home to [place], [place]. CALVIN ROMERO MD PGY-1 Anesthesiology Pager: [phone] [facility] A [address] [place] [address] Karthik Oneill MD - 03/02/2015 8:26 AM [id number] Calvin William Md - 03/01/2015 5:34 PM PDT Brief Post Operative Note: 40 F PMH morbid obesity (BMI 71 today), DM2, depression, GERD, h/o stroke at age 18, and kn own ventral hernias transferred to [facility] for surgical treatment of incarcerated [...] control CALVIN ROMERO MD PGY-1 Anesthesiology Pager: [phone] signed by Calvin Romero Md at 03/01/2015 [...] Rd | | | | | | [facility] [place] | | | | | | [address] | | | | | | [phone] | | | | | | | | +--------+ + + + + | 08/19/ | Surgery | Surgery | Chilo, | OPEN VENTRAL HERNIA | | 2019 | | | MD [address] | REPAIR WITH | | | | | [address] | BIOLOGICAL MESH | | | | | [place], [place] | | | | | | [address] | | | | | | [phone] | | | | | | | | +--------+ + + + + | 09/15/ | Office | Cardiology | Randell Franks, | | | 2020 | Visit | | [address] | | | | | | [place], [place] | | | | | | [address] | | | | | | [phone] | | | | | | | [...] | | Attending Surgeon: Shahid Cantu MD Building Cleaning Supervisor(s): Howie Angeles MD, R5 | | Karthik [...] 03/02/2015 08:25:39DT: 03/02/2015 09:15:57Job #: | | [id number] | | | |Dr. Chris Cantu was present and scrubbed for the entirety of the case. | | | | | | | |Karthik Gonzalez MD | | | |Pursuant to federal Medicare and Medicaid regulations I was present for the entire procedur e. | | | | | | | |Shahid Cantu MD | |Book Canvasser | |Trauma, Critical Care & Acute Care Surgery | | | | | | | |Shahid Cantu MD | |[place]ANDE | | | | | | /[id number] | + ---+ CAPILLARY BLOOD GLUCOSE (NO [...] - KWAKU | [address] | [place], [place] | | | [facility]ARE | [facility] | [address] | | | TESTS | | | [...] (H) | 60 - 99 mg/dL | [facility] - | | | [...] AMES | [address] | [place], [place] | | | [facility] | [facility] | [address] | | | TESTS | | | [...] KWAKU | [address] | [place], [place] | | | JUSTINE [facility]WN OF JAKY | [address] | [address] | | | TESTS | | | [...] KWAKU | [address] | [place], [place] | | | [facility]ARE | [address] | [address] | | | TESTS | | | [...] (H) | 60 - 99 mg/dL | [facility] - | | | [...] AMES | [address] | [place], [place] | | | [facility] | [facility] | [address] | | | TESTS | | | [...] MARQUAM | [address] | [place], [place] | | | JUSTINE DAWN OF JAKY | [address] | [address] | | | TESTS | | | [...] + + | [facility] | [address] [facility] | [place] [address] | | | SERVICES, CORE | CLARENCE [...] | | | LABORATORY | | | [place] | | | SERVICES, | | | [...] | + + + + + | [facility] | [address] | [place] [address] | | | SERVICES, CORE | CLARENCE [...] (H) | 60 - 99 mg/dL | [facility] - | | | [...] AMES | [address] | [place], [place] | | | [facility] CARE | [address] | [address] | | | TESTS | | | [...] MARQUAM | [address] | [place], [place] | | | [facility] CARE | [address] | [address] | | | TESTS | | | [...] MARQUAM | [address] | [place], [place] | | | JUSTINE [facility]WN OF JAKY | [address] | [address] | | | TESTS | | | [...] (H) | 60 - 99 mg/dL | [facility] - | | | [...] AMES | [address] | [place], [place] | | | [facility]ARE | [address] | [address] | | | TESTS | | | [...] MARQUAM | [address] | [place], [place] | | | [facility]ARE | [address] | [address] | | | TESTS | | | [...] [facility] | [address] | [place] [address] | | | SERVICES, CORE | CLARENCE [...] MARQUAM | [address] | [place], [place] | | | [facility]ARE | [address] | [address] | | | TESTS | | | [...]
--- OUTSIDE RECORDS SUMMARY | ~2019-06-25 | XMS | Encounter Summary ---
Demographics + + + | Address | [address] | | | [place] [address] | + + + | Home Phone [...] + | Katalina Padilla | ECON | [address] | | | | | [place], [place] | | | | | [address] | | + + + + + | Ellie Vang | ECON | Unknown | | + + + + + Care Team Providers + +------+ + | Care Spearer Name | Role | Phone | + +------+ + | Fadi Goodrich DO | PCP | | + +------+ + Encounter Details +--------+ + + + + | Date | Type | Department | Care Team | Description | +--------+ + + + + | 12/12/ | Emergency | [facility] | | | | 2014 - | | Department [address] | | | | | [address] | | | | 05/20/ | | [facility] | | | | 2014 | | [place], [place] | | | | | | [address] | | | | | | [phone] | | | +--------+ + + + [...] +---------+--------+ + documented as of this encounter Plan [...] Rd | | | | | | [place], [place] | | | | | | [address] | | | | | | [phone] | | | | | | | | +--------+ + + + + | 08/19/ | Surgery | Surgery | Chilo | OPEN VENTRAL HERNIA | | 2019 | | | MD Jor[address] | REPAIR WITH | | | | | [address] | BIOLOGICAL MESH | | | | | [place], [place] | | | | | | [address] | | | | | | [phone] | | | | | | | | +--------+ + + + + | 09/15/ | Office | Cardiology | Randell Franks, | | | 2019 | Visit | | [address] | | | | | | [place] | | | | | | [address] | | | | | | [phone] | | | | | | | | +--------+ + + + + documented as of this encounter Visit Diagnoses Not on filedocumented in this encounter"
--- OUTSIDE RECORDS SUMMARY | ~2019-06-25 | XMS | Encounter Summary ---
Demographics + + + | Address | [address] | | | [place] [address] | + + + | Home Phone [...] [place], [place] | | | | | [address] | | + + + + + | Ellie Vang | ECON | Unknown | | + + + + + Care Team Providers + +------+ + | Care Hanging Flags Decorator Name | Role | Phone | + +------+ + | Fadi Goodrich DO | PCP | | + +------+ + Encounter Details +--------+------+ + + + | Date | Type | Department | Care Team | Description | +--------+------+ + + + | 06/16/ | Lab | Laboratory at [facility] | | Morbid obesity with | | 2012 | | [address] | | BMI of 70 and over, | | | | [place], [place] | | adult (HCC); Vitamin | | | | [address] | | D deficiency | | | | [phone] | | disease; | | | | [...] Rd | | | | | | [place], [place] | | | | | | [address] | | | | | | [phone] | | | | | | | | +--------+ + + + + | 08/19/ | Surgery | Surgery | Chilo, | OPEN VENTRAL HERNIA | | 2019 | | | MD Jorje [address] | REPAIR WITH | | | | | [address] | BIOLOGICAL MESH | | | | | [place], [place] | | | | | | [address] | | | | | | [phone] | | | | | | | | +--------+ + + + + | 09/15/ | Office | Cardiology | Randell Franks, | | | 2019 | Visit | | [address] | | | | | | Ave [place], [place] | | | | | | [address] | | | | | | [phone] | | | | | | | [...] | | | PST | over, adult ([facility]) | results section. | | | | | Vitamin D deficiency | | | | | | disease | | | | | | Intertriginous | | | | | | candidiasis | | | | | | 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| | ([facility]) HTN | | | | | | [...] | | | | | | obesity ([facility]) PCOS | | | | | | [...] | | | | | | by [facility],[address] | | | | [address], [place] | | | | | | [address] | | | | | | [phone]. | | | | | | Mt [...] at | | | | | | [employer] [facility] | | | | | | developed and | | | | | | characteristics | | | | | | determined by | | | | | | [facility]. See | | | | | | Compliance Statement B: | | | | | | [employer]/CS | | | | + + + + + + + + | Specimen | + + | Blood - Blood | + + + + + + + | Performing | Address | City/State/Zipcode | Phone Number | | Organization | | | | + + + + + | [facility] | [address] | [place], [place] | | | [facility] | | [address] | | + + + + + [...]
--- OUTSIDE RECORDS SUMMARY | ~2019-06-25 | XMS | Encounter Summary ---
Demographics + + + | Address | [address] | | | [place] [address] | + + + | Home Phone [...] + | Katalina Padilla | ECON | [address] | | | | | [place], [place] | | | | | [address] | | + + + + + | Ellie Vang | ECON | Unknown | | + + + + + Care Team Providers + +------+ + | Care Audit Mgr Name | Role | Phone | + [...] | | | Order | [address] | [place], [place] | | | | | [address] | [address] | | | | | Rd Mailcode: UHN83 | [phone] | | | | | Francesco Peres | | | | | | [address] [place], [place] | | | | | | [address] | | | | | | [phone] | | | +--------+ + + + [...] Rd | | | | | | [place], [place] | | | | | | [address] | | | | | | [phone] | | | | | | | | +--------+ + + + + | 08/19/ | Surgery | Surgery | Chilo | OPEN VENTRAL HERNIA | | 2019 | | | MD [address] | REPAIR WITH | | | | | [address] | BIOLOGICAL MESH | | | | | [place], [place] | | | | | | [address] | | | | | | [phone] | | | | | | | | +--------+ + + + + | 09/15/ | Office | Cardiology | Randell Franks, | | | 2019 | Visit | | [address] | | | | | | [place], [place] | | | | | | [address] | | | | | | [phone] | | | | | | | | +--------+ + + + + documented as of this encounter Results EGD (06/23/2018 3:58 PM PST) + + | Specimen | + + | | + + + +--------- -----+ | Narrative | Roseanna parikh At | + +--------- -----+ | MRN: | NKECHI | | [id number] Date: 06/23/2018Patient Name: Elzbieta Curtis #: | ENDOSCOP Y | | [id number] of : 1975CSN: [id number] Type: | | | AmbulatoryRoom: SORProcedure: Upper GI | | | endoscopyIndications: Nausea with vomiting, Status post | | | Terw-fe-EEqlajwixs: KALEB MILES MD (Doctor)JOSE | | | NASIMA, Tack Driller | | | (Tack Driller)Referring MD: DANIELLE GARCÍAPRemateusz | | | Provider: [...] | | | The Olympus [id number]-[id number] Gastroscope #[id number] was | | | introduced through the [...] endoscope without resistance. The | | | lmtpl-lx-zuodtdo limb was characterized by healthy appearing | [...] Initiated On: | | | 06/23/2018 3:58 [facility] Letter to: RADHA MICHAEL DO | | [...]
--- OUTSIDE RECORDS SUMMARY | ~2019-06-25 | XMS | Encounter Summary ---
Demographics + + + | Address | [address] | | | [place] [address] | + + + | Home Phone [...] + | Katalina Padilla | ECON | [address] | | | | | [place], [place] | | | | | [address] | | + + + + + | Ellie Vang | ECON | Unknown | | + + + + + Care Team Providers + +------+ + | Care Riprap Placing Supervisor Name | Role | Phone | + +------+ + | Fadi Goodrich DO | PCP | | + +------+ + Encounter Details +--------+------+ + + + | Date | Type | Department | Care Team | Description | +--------+------+ + + + | 10/12/ | Lab | Laboratory at [facility] | | | | 2019 | | [address] | | | | | | [place], [place] | | | | | | [address] | | | | | | [phone] | | | +--------+------+ + + + [...] [place] | | | | | | [address] | | | | | | [phone] | | | | | | | | +--------+ + + + + | 08/19/ | Surgery | Surgery | Chilo, | OPEN VENTRAL HERNIA | | 2019 | | | MD [address] | REPAIR WITH | | | | | [address] | BIOLOGICAL MESH | | | | | [facility] [place] | | | | | | [address] | | | | | | [phone] | | | | | | | | +--------+ + + + + | 09/15/ | Office | Cardiology | Randell Franks, | | | 2019 | Visit | | [address] | | | | | | [place], [place] | | | | | | [address] | | | | | | [phone] | | | | | | | [...] | | e | 3:29 PM | Fradny-en-Y gastric | procedure are [...] + + + + + | [facility] | [address] | [place] [address] | | | [address]IA [address] | CLARENCE [...] [facility] | | | | determined by [facility] | | | | | | Laboratories. See | | | | | | Compliance Statement B: | | | | | | [employer]/CSPerformed | | | | | | by [employer],[address] | | | | | | [address], [facility],[place] | | | | | | [address] | | | | | | [phone].[employer] [facility]. | | | | | | OwnLocalIsmael MD, | | | | | | [...] [facility] | [address] | [place], [place] | | | [facility] | | [address] | | + + + + + [...] | | | | | determined by [facility] | | | | | | Laboratories. See | | | | | | Compliance Statement B: | | | | | | [employer] [facility].[employer]/CSPerformed | | | | | | by [employer],[address] | | | | | | [facility] | | | | | | [address] | | | | | | [phone].[employer] [facility]. | | | | | | com, Ismael Willis MD, | | | | | | Lab. Director | | | | + + + + + + + + | Specimen | + + | Blood - Blood | | (substance) | + + + + + + + | Performing | Address | City/State/[facility] Facilitycode | Phone Number | | Organization | | | | + + + + + | [facility] | [address] | [place], [place] | | | [facility] | | [address] | | + + + + + [...] [facility] | | | (YEN NOAH) | [facility],[address] | | REG UNIV | | | SERUM | [facility] | | PTH - [facility] | | | | [address] | | | | | | [phone]. | | | | | | Ismael [...] B: | | | | | | [employer]/CS | | | | + + + + + + + + | Specimen | + + | Blood - Blood | | (substance) | + + + + + + + | Performing | Address | City/State/Zipcode | Phone Number | | Organization | | | | + + + + + | [facility] | [address] | [place], [place] | | | [facility] | | [address] | | + + + + + [...] [facility] | [address] | [place] [address] | | | SERVICES, CORE | PARK [...] | + + + + + | [facility] | [address] | [place] [address] | | | SERVICES, CORE | CLARENCE [...] B: | | | | | | [employer] [facility]/CSPerformed | | | | | | by [employer],[address] | | | | | | [address] [facility],[place] | | | | | | [address] | | | | | | [phone].[employer] [facility]. | | | | | | com, [...] [facility] | [address] | [place], [place] | | | [facility] | | [address] | | + + + + + [...] | + + + + + | [facility] | [address] | [place] [address] | | | SERVICES, LYDIA | CLARENCE [...] | | | | | determined by [facility] | | | | | | Triage. See | | | | | | Compliance Statement B: | | | | | | [employer] [facility].[employer]/CSPerformed | | | | | | by [employer],[address] | | | | | | [place], [place] | | | | | | [address] | | | | | | [phone].[employer] [facility]. | | | | | | comIsmael [...] [facility] | [address] | [place], [place] | | | [facility] | | [address] | | + + + + + [...] [facility] | [address] | [place] [address] | | | SERVICES, CORE | PARK [...] | + + + + + | [facility] | [address] [facility] | [place] [address] | | | SERVICES, SPECIAL | PARK [...] | + + + + + | [facility] | [address] | [place] [address] | | | SERVICES, CORE | CLARENCE [...] at | | | | | | [email or web address] | | | | | | med by [facility] | | | | | | [facility]ly [facility],[address] [place] [address] | | | | | | Juan [facility],[place] [address] | | | | | | [phone].[employer] [facility]. | | | | | | spanish [...] [facility] | [address] | [place], [place] | | | [facility] | | [address] | | + + + + + [...] | | | LABORATORY | | | CAMEROONIAN | | | SERVICES, | | | [...] | + + + + + | [facility] | [address] | [place] [address] | | | SERVICES, CORE | [address] | | | + + + + + documented in this encounter Visit Diagnoses Not on filedocumented in this encounter"
--- OUTSIDE RECORDS SUMMARY | ~2019-06-25 | XMS | Encounter Summary ---
Demographics + + + | Address | [address] | | | [place] [address] | + + + | Home Phone [...] + | Katalina Padilla | ECON | [address] | | | | | [place], [place] | | | | | [address] | | + + + + + | Ellie Vang | ECON | Unknown | | + + + + + Care Team Providers + +------+ + | Care Historiography Professor Name | Role | Phone | [...] | | | | and over, | [place], [place] | [facility] | | | | | adult (HCC) | [address] | for Health | | | | | Severe | Phone: | and Healing, | | | | | muscle | | [address], | | | | | deconditioni | Fax: | [address] | | | | | ng | [phone] | [place], [place] | | | | | Procedures | | [address] | | | | | PHYSICAL | | Phone: | | | | | THERAPY | | [phone] | | | | | REFERRAL | | Fax: | | | | | | | [phone] | +--------+--------+ + + + + Encounter Details +--------+ + + + + | Date | Type | Department | Care Team | Description | +--------+ + + + + | 02/02/ | Province Archivist | Digestive Health | Shereen Georges, | Morbid obesity with | | 2017 | | Center at [facility] [address] | ACNP [address] | BMI of 70 and over, | | | | [address] | [address] [facility] [place] | adult (HCC) (Primary | | | | Mailcode: Center | [address] | Dx); Severe muscle | | | | for Health and | | deconditioning | | | | Healing, [address] | | | | | | [place], [place] | | | | | | [address] | | | | | | | [...] Rd | | | | | | [place], [place] | | | | | | [address] | | | | | | [phone] | | | | | | | | +--------+ + + + + | 08/19/ | Surgery | Surgery | Chilo, | OPEN VENTRAL HERNIA | | 2019 | | | MD [address] | REPAIR WITH | | | | | [address] | BIOLOGICAL MESH | | | | | [place], [place] | | | | | | [address] | | | | | | [phone] | | | | | | | | +--------+ + + + + | 09/15/ | Office | Cardiology | Randell Franks, | | | 2019 | Visit | | [address] | | | | | | [place], [place] | | | | | | [address] | | | | | | [phone] | | | | | | | [...]
--- OUTSIDE RECORDS SUMMARY | ~2019-06-25 | XMS | Encounter Summary ---
Demographics + + + | Address | [address] | | | [place] [address] | + + + | Home Phone [...] + | Author | [facility] | | | and Jeffana | + + + | Organization | [facility] | [...] Team Providers + +------+ + | Care Hris Specialist Name | Role | Phone | + +------+ + PCP | Unavailable | + +------+ + Encounter Details +--------+ + + + + | Date | Type | Department | Care Team | Description | +--------+ + + + + | 12/23/ | Orders Only | [facility] | Conversion | | | 2017 | | NEPHROLOGY JESUS | Transaction, | | | | | [address] | Provider Unknown | | | | | [address] | | | | | | [address] | (Fax) | | | | | [phone] | | | +--------+ + + + [...]
--- OUTSIDE RECORDS SUMMARY | ~2019-06-25 | XMS | Encounter Summary ---
Demographics + + + | Address | [address] | | | [place] [address] | + + + | Home Phone [...] [place], [place] | | | | | [address] | | + + + + + | Ellie Vang | ECON | Unknown | | + + + + + Care Team Providers + +------+ + | Care Shift Manager Name | Role | Phone | [...] | HA Roldan | | | with SENIOR COMPLIANCE ANALYST | | hypertension | [address] | [address] | | | | | Right | [address] | [address] | | | | | heart | [place], [place] | [place], | | | | | failure | [address] | [place] | | | | | ([facility]) Type | Phone: | [address] | | | | | 2 diabetes | [phone] | | | | | | mellitus | Fax: | | | | | | without | [phone] | | | | | | complication | | | | | | | , with | | | | | | | long-term | | | | | | | current use | | | | | | | of insulin | | | | | | | ([facility]) | | | +--------+ + + [...] | | | [address] | [facility] [address] | (Primary Dx); | | | | Mailcode: Center | [place], [place] | 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[facility] and | [address] | with insulin therapy | | | | [address] | | ([facility]) | | | | [place], [place] | | | | | | [address] | | | | | | [phone] | | | +--------+---------+ + + + [...] Follow-Up Patient referred by: Randell Franks MD [address] [place] [address] Documented time of visit: 10:33 to 10:55 (22 minutes niud-kn-lkof with patient) Surgery: Gastric Bypass Date of [...] vagina Allergic rhinitis Anemia Anxiety Bipolar disorder ([facility]) Chronic wound infection of abdomen from 2010 Cough Depression Diverticulitis of colon Dizziness Glaucoma Heart burn Hemorrhoids Hernia of abdominal wall Incisional hernia, incarcerated 2012 Insomnia Irregular periods Kidney stone Leaking of urine Leg sore Lymphedema Morbid obesity with body mass index of 70 and over in adult ([facility]) Myalgia and myositis Nausea Neck pain Numbness Osteoarthritis of knee Palpitations Pneumonia Shortness of breath Staphylococcal infection Stroke ([facility]) TIA (transient ischemic attack) due to Bromocriptine Tinea corporis UTI (urinary tract infection) Food logs: Yes-pen and paper Food choices: ground chicken, eggs, creamed soups (mushroom or tomato), cream of wheat occ, cottage cheese, turkmen yogurt-light and fit, protein bar from [employer]. Unable to keep protei n shakes down. Fluid choices: water-4-5 bottles per day Supplementation: Flinstones, iron, vitamin D, vitamin C, Citracal supplement x 2 in the mor eusebio and 2 at night, magnesium, potassium, [id number] today Assessment: Vomiting likely due to volume [...] multivitamin & mineral (with iron) supplement, 2/day -8800-4766 mg calcium citrate with vitamin D/day (take in divided doses, not within 2 hour s of multivitamin or iron supplement) -500 mcg/day sublingual B12 supplement (or monthly injections) Continued to reinforce importance of mindful eating. Continue to increase physical activity. Follow up in [address],LD Pager# [phone] Phone: [phone] documented in this en counter Plan of [...] [place] | | | | | | [address] | | | | | | [phone] | | | | | | | | +--------+ + + + + | 08/19/ | Surgery | Surgery | Chilo, | OPEN VENTRAL HERNIA | | 2019 | | | MD Demond Recinos | REPAIR WITH | | | | | [address] | BIOLOGICAL MESH | | | | | [place] | | | | | | [address] | | | | | | [phone] | | | | | | | | +--------+ + + + + | 09/15/ | Office | Cardiology | Randell Franks, | | | 2019 | Visit | | [address] | | | | | | [place], [place] | | | | | | [address] | | | | | | [phone] | | | | | | | | +--------+ + + + + documented as of this encounter Procedures + +--------+ + + + | Procedure Name | Priori | Date/Time | Associated Diagnosis | Comments | | | ty | | | | + +--------+ + + + | DE MNT RE-ASSESSMNT | Routin | 04/01/2018 | History of | | | X15MIN | e | 12:23 PM | Frandy-en-Y gastric | | | | | PDT | bypass Diabetes | | | | | | mellitus with | | | | | | insulin therapy | | | | | | ([facility]) | | + +--------+ + + + documented in this encounter Visit Diagnoses + + | Diagnosis | + + | History of Frandy-en-Y gastric bypass - Primary Bariatric surgery status | + + | Diabetes mellitus with insulin therapy (HCC) | + + documented in this encounter
--- OUTSIDE RECORDS SUMMARY | ~2019-06-25 | XMS | Encounter Summary ---
Demographics + + + | Address | [address] | | | [place] [address] | + + + | Home Phone [...] + | Katalina Padilla | ECON | [address] | | | | | [place], [place] | | | | | [address] | | + + + + + | Ellie Vang | ECON | Unknown | | + + + + + Care Team Providers + +------+ + | Care Hand Developer Name | Role | Phone | [...] | | | 2013 | Event | [facility] | [address] | | | | | Admitting Desk | Lesly G[facility]rez [facility] | | | | | [facility] on the | [place] [address] | | | | | floor [address] | [phone] | | | | | [address] | | | | | | [place], [place] | | | | | | [address] | | | +--------+ + + + [...] No; 18; Left; Hand; Positive; 1; | Mkiaela Feliciano | Jorje Birmingham RN | | [...] Rd | | | | | | [place], [place] | | | | | | [address] | | | | | | [phone] | | | | | | | | +--------+ + + + + | 08/19/ | Surgery | Surgery | Chilo | OPEN VENTRAL HERNIA | | 2019 | | | MD Demond Recinos [address] | REPAIR WITH | | | | | [address] | BIOLOGICAL MESH | | | | | [place], [place] | | | | | | [address] | | | | | | [phone] | | | | | | | | +--------+ + + + + | 09/15/ | Office | Cardiology | Randell Franks, | | | 2019 | Visit | | [address] | | | | | | [place], [place] | | | | | | [address] | | | | | | [phone] | | | | | | | [...]
--- OUTSIDE RECORDS SUMMARY | ~2019-06-25 | XMS | Encounter Summary ---
Demographics + + + | Address | [address] | | | [place] [address] | + + + | Home Phone [...] + | Katalina Padilla | ECON | [address] | | | | | [place], [place] | | | | | [address] | | + + + + + | Ellie Vang | ECON | Unknown | | + + + + + Care Team Providers + +------+ + | Care Manager Assessment Name | Role | Phone | + [...] | | | | | [facility] | | | | | | [place], [place] | | | | | | [address] | | | | | | [phone] | | | +--------+ + + + [...] [place] | | | | | | [address] | | | | | | [phone] | | | | | | | | +--------+ + + + + | 08/19/ | Surgery | Surgery | Chilo | OPEN VENTRAL HERNIA | | 2019 | | | MD Demond Recinos | REPAIR WITH | | | | | [address] | BIOLOGICAL MESH | | | | | [place], [place] | | | | | | [address] | | | | | | [phone] | | | | | | | | +--------+ + + + + | 09/15/ | Office | Cardiology | Randell Franks, | | | 2019 | Visit | | [address] | | | | | | [place], [place] | | | | | | [address] | | | | | | [phone] | | | | | | | [...] in | | | | | | [place]. | | | | | | | [...] | | | | artery. A 4.1 Macedonian | | | | | | catheter was navigated | | | | | | over0.035" Donal coated | | | | | | ponUpson guide wire into | | | | [...]
--- OUTSIDE RECORDS SUMMARY | ~2019-06-25 | XMS | Encounter Summary ---
Demographics + + + | Address | [address] | | | [place] [address] | + + + | Home Phone [...] + | Katalina Padilla | ECON | [address] | | | | | [place], [place] | | | | | [address] | | + + + + + | Ellie Vang | ECON | Unknown | | + + + + + Care Team Providers + +------+ + | Care Advice Nurse Name | Role | Phone | + +------+ + | Fadi Goodrich DO | PCP | | + +------+ + Reason for Visit + + + | Reason | Comments | + + + | Prior Authorization | Eircxiga 5 mg | | Request | | + + + Encounter Details +--------+ + + + + | Date | Type | Department | Care Team | Description | +--------+ + + + + | 12/01/ | Telephone | Cardiology | Randell Franks, | Prior Authorization | | 2017 | | Preventive at [facility] | MD [address] | Request (Ericxiga 5 | | | | [address] | Ave [place], [place] | mg) | | | | Mailcode: [facility] | [address] | | | | | [facility] | [phone] | | | | | and [address], | | | | | | [address] | | | | | | [place], [place] | | | | | | [address] | | | | | | [phone] | | | +--------+ + + + [...] | +--------+ + + + + | 01/03/ | Telephone-S | Pre-operative | | | [...] Rd | | | | | | [place] | | | | | | [address] | | | | | | [phone] | | | | | | | | +--------+ + + + + | 08/19/ | Surgery | Surgery | Chilo, | OPEN VENTRAL HERNIA | | 2019 | | | MD [address]ond [address]inos [address] | REPAIR WITH | | | | | [address] | BIOLOGICAL MESH | | | | | [place], [place] | | | | | | [address] | | | | | | [phone] | | | | | | | | +--------+ + + + + | 09/15/ | Office | Cardiology | Randell Franks, | | | 2019 | Visit | | MD [address] | | | | | | [place], [place] | | | | | | [address] | | | | | | [phone] | | | | | | | | +--------+ + + + + documented as of this encounter Visit Diagnoses Not on filedocumented in this encounter"
--- OUTSIDE RECORDS SUMMARY | ~2019-06-25 | XMS | Encounter Summary ---
Demographics + + + | Address | [address] | | | [place] [address] | + + + | Home Phone [...] [place], [place] | | | | | [address] | | + + + + + | Ellie Vang | ECON | Unknown | | + + + + + Care Team Providers + +------+ + | Care Car Checker Name | Role | Phone | + +------+ + | Kenyatta Cardenas MD | PCP | | + +------+ + Encounter Details +--------+ + + + + | Date | Type | Department | Care Team | Description | +--------+ + + + + | 03/22/ | Hospital | Radiology/Imaging | Keren Allen, | | | 2019 | Encounter | Lab at [facility] [address] | AG[address] | | | | | [address] [place] Mailcode: | [place], [place] | | | | | [facility] | [address] | | | | | Health and Healing, | [phone] | | | | | [address] | | | | | | Floor [facility] [place] | | | | | | [address] | | | | | | [phone] | | | +--------+ + + + [...] | | 0 | | | | [id number] | mouth two times | | | [...] Rd | | | | | | [place], [place] | | | | | | [address] | | | | | | [phone] | | | | | | | | +--------+ + + + + | 08/19/ | Surgery | Surgery | Chilo, | OPEN VENTRAL HERNIA | | 2019 | | | MD Jorje [address] | REPAIR WITH | | | | | [address] | BIOLOGICAL MESH | | | | | [place], [place] | | | | | | [address] | | | | | | [phone] | | | | | | | | +--------+ + + + + | 09/15/ | Office | Cardiology | Randell Franks, | | | 2019 | Visit | | [address] | | | | | | [place], [place] | | | | | | [address] | | | | | | [phone] | | | | | | | [...] Procedure Note | + + | Service Sabine, Radiant Res In Interface - 03/22/2019 1:04 [...]
--- OUTSIDE RECORDS SUMMARY | ~2019-06-25 | XMS | Encounter Summary ---
Demographics + + + | Address | [address] | | | [place] [address] | + + + | Home Phone [...] [place], [place] | | | | | [address] | | + + + + + | Ellie Vang | ECON | Unknown | | + + + + + Care Team Providers + +------+ + | Care Tack Coverer Name | Role | Phone | [...] | | 2015 | | Preventive at [facility] | MD [address] | | | | | [address] | [place], [place] | | | | | Mailcode: [facility] | [address] | | | | | [facility] | [phone] | | | | | and [address], | | | | | | [address] | | | | | | [place], [place] | | | | | | [address] | | | | | | [phone] | | | +--------+ + + + [...] [place] | | | | | | [address] | | | | | | [phone] | | | | | | | | +--------+ + + + + | 08/19/ | Surgery | Surgery | Chilo, | OPEN VENTRAL HERNIA | | 2019 | | | MD Demond Recinos | REPAIR WITH | | | | | [address] | BIOLOGICAL MESH | | | | | [place] | | | | | | [address] | | | | | | [phone] | | | | | | | | +--------+ + + + + | 09/15/ | Office | Cardiology | Randell Franks, | | | 2019 | Visit | | MD [address] | | | | | | [place], [place] | | | | | | [address] | | | | | | [phone] | | | | | | | | +--------+ + + + + documented as of this encounter Visit Diagnoses Not on filedocumented in this encounter"
--- OUTSIDE RECORDS SUMMARY | ~2019-06-25 | XMS | Encounter Summary ---
Demographics + + + | Address | [address] | | | [place] [address] | + + + | Home Phone [...] [place], [place] | | | | | [address] | | + + + + + | Ellie Vang | ECON | Unknown | | + + + + + Care Team Providers + +------+ + | Care Mushroom Grower Name | Role | Phone | + +------+ + | Fadi Goodrich DO | PCP | | + +------+ + Encounter Details +--------+ + + + + | Date | Type | Department | Care Team | Description | +--------+ + + + + | 07/18/ | Abstract | Digestive Health | Shereen Georges, | | | 2012 | | Center at [facility] [address] | ACNP [address] | | | | | [address] | Ave [place], [place] | | | | | Mailcode: [place] | [address] | | | | | for Health and | | | | | | [facility] 2 | | | | | | [facility] [place] | | | | | | [address] | | | | | | | [...] Rd | | | | | | [place], [place] | | | | | | [address] | | | | | | [phone] | | | | | | | | +--------+ + + + + | 08/19/ | Surgery | Surgery | Chilo, | OPEN VENTRAL HERNIA | | 2019 | | | MD Jorje [address] | REPAIR WITH | | | | | [address] | BIOLOGICAL MESH | | | | | [place], [place] | | | | | | [address] | | | | | | [phone] | | | | | | | | +--------+ + + + + | 09/15/ | Office | Cardiology | Randell Franks, | | | 2019 | Visit | | [address] | | | | | | [place] [facility] [place] | | | | | | [address] | | | | | | [phone] | | | | | | | | +--------+ + + + + documented as of this encounter Visit Diagnoses Not on filedocumented in this encounter"
--- OUTSIDE RECORDS SUMMARY | ~2019-06-25 | XMS | Encounter Summary ---
Demographics + + + | Address | [address] | | | [place] [address] | + + + | Home Phone [...] + | Katalina Padilla | ECON | [address] | | | | | [place], [place] | | | | | [address] | | + + + + + | Ellie Vang | ECON | Unknown | | + + + + + Care Team Providers + +------+ + | Care Roustabout Crew Leader Name | Role | Phone | [...] Diabetes & | Morbid | Kathy M, PULLING MACHINE OPERATOR | [address] | | | | Metabolism | obesity | [address] | | | | | ([facility]) | [address], | [address] | | | | | Procedures | [address] | Physician's | | | | | CONSULT TO | [place], [place] | Pavilion | | | | | ENDO | [address] | Physician's | | | | | [address] | Phone: | Pavilion | | | | | | [phone] | [place], [place] | | | | | | Fax: | [address] | | | | | | [phone] | Phone: | | | | | | | [phone] | | | | | | | Fax: | | | | | | | [phone] | +--------+--------+ + + + + Encounter [...] | | Center at Physicians | [place], [place] | (Primary Dx); Morbid | | | | Pavilion [address] | [address] | obesity (HCC) | | | | [address] | [phone] | | | | | Physician's | | | | | | Pavilion | | | | | | Physician's Pavilion | | | | | | [place], [place] | | | | | | [address] | | | | | | [phone] | | | +--------+---------+ + + + [...] Rd | | | | | | [place], [place] | | | | | | [address] | | | | | | [phone] | | | | | | | | +--------+ + + + + | 08/19/ | Surgery | Surgery | Chilo, | OPEN VENTRAL HERNIA | | 2019 | | | MD [address] | REPAIR WITH | | | | | [address] | BIOLOGICAL MESH | | | | | [place], [place] | | | | | | [address] | | | | | | [phone] | | | | | | | | +--------+ + + + + | 09/15/ | Office | Cardiology | Randell Franks, | | | 2019 | Visit | | [address] | | | | | | [place], [place] | | | | | | [address] | | | | | | [phone] | | | | | | | [...]
--- OUTSIDE RECORDS SUMMARY | ~2019-06-25 | XMS | Encounter Summary ---
Demographics + + + | Address | [address] | | | [place] [address] | + + + | Home Phone [...] [place], [place] | | | | | [address] | | + + + + + | Ellie Vang | ECON | Unknown | | + + + + + Care Team Providers + +------+ + | Care Premium Card Cancellation Clerk Name | Role | Phone | + +------+ + | Fadi Goodrich DO | PCP | | + +------+ + Encounter Details +--------+ + + + + | Date | Type | Department | Care Team | Description | +--------+ + + + + | 07/19/ | Abstract | Digestive Health | Kathy Feldman, | | | 2012 | | Center at [facility] [address] | FRONT OFFICE DIRECTOR [address] | | | | | [address] | [facility] 350 | | | | | Mailcode: Center | [place], [place] | | | | | [facility] and | [address] | | | | | [facility] 2 | [phone] | | | | | [place], [place] | | | | | | [address] | | | | | | [phone] | | | +--------+ + + + [...] Rd | | | | | | [place], [place] | | | | | | [address] | | | | | | [phone] | | | | | | | | +--------+ + + + + | 08/19/ | Surgery | Surgery | Chilo | OPEN VENTRAL HERNIA | | 2019 | | | MD Jorje [address] | REPAIR WITH | | | | | [address] | BIOLOGICAL MESH | | | | | [place], [place] | | | | | | [address] | | | | | | [phone] | | | | | | | | +--------+ + + + + | 09/15/ | Office | Cardiology | Randell Franks, | | | 2019 | Visit | | [address] | | | | | | Ave [place], [place] | | | | | | [address] | | | | | | [phone] | | | | | | | | +--------+ + + + + documented as of this encounter Visit Diagnoses Not on filedocumented in this encounter"
--- OUTSIDE RECORDS SUMMARY | ~2019-06-25 | XMS | Encounter Summary ---
Demographics + + + | Address | [address] | | | [place] [address] | + + + | Home Phone [...] + | Katalina Padilla | ECON | [address] | | | | | [place], [place] | | | | | [address] | | + + + + + | Ellie Vang | ECON | Unknown | | + + + + + Care Team Providers + +------+ + | Care Casting Operator Helper Name | Role | Phone [...] | | | | | | | [place] for | | | | | | | Health and | | | | | | | Healing, | | | | | | | [address] | | | | | | | [place], [place] | | | | | | | [address] | | | | | | | Phone: | | | | | | | [phone] | | | | | | | Fax: | | | | | | | [phone] | +--------+--------+ + + + + Encounter [...] | | | | Mailcode: Center | [place], [place] | ([facility]) | | | | for Health and | [address] | | | | | [facility] 2 | | | | | | [place], [place] | | | | | | [address] | | | | | | [phone] | | | +--------+---------+ + + + [...] of Visit: 10:06 to 10:32 (26 minutes gtyu-aq-ikqi with patient & friend) SUBJECTIVE: Is surprised she has gained weight; is disappointed. Still following her usual meal plan. H as d/c'd diet soda. Still struggling w/ eating out of boredom - choosing 100 kcal snacks but having ~3 of them at a time. Not as much emotional eating lately. Has been keeping food log s (on paper) - avg 1496-7476 kcal/d. Trying to increase activity. B: Atkins [...] provided. Olga Lidia Montanez RD, [place] Pager [phone] documented in this en counter Plan of [...] [place] | | | | | | [address] | | | | | | [phone] | | | | | | | | +--------+ + + + + | 08/19/ | Surgery | Surgery | Chilo, | OPEN VENTRAL HERNIA | | 2019 | | | MD [address] | REPAIR WITH | | | | | [address] | BIOLOGICAL MESH | | | | | [place] | | | | | | [address] | | | | | | [phone] | | | | | | | | +--------+ + + + + | 09/15/ | Office | Cardiology | Randell Franks, | | | 2019 | Visit | | [address] | | | | | | [place], [place] | | | | | | [address] | | | | | | [phone] | | | | | | | | +--------+ + + + + documented as of this encounter Procedures + +--------+ + + + | Procedure Name | Priori | Date/Time | Associated Diagnosis | Comments | | | ty | | | | + +--------+ + + + | [place] MNT RE-ASSESSMNT | Routin | 06/16/2013 | [...]
--- OUTSIDE RECORDS SUMMARY | ~2019-06-25 | XMS | Encounter Summary ---
Demographics + + + | Address | [address] | | | [place] [address] | + + + | Home Phone [...] [place], [place] | | | | | [address] | | + + + + + | Ellie Vang | ECON | Unknown | | + + + + + Care Team Providers + +------+ + | Care Derrick Hand Name | Role | Phone | [...] | | 2019 | | [facility]ORY [address] | [address] | (RPV approved) | | | | [address] | [address] [place], | | | | | Mailcode: [facility] | [place] [address] | | | | | [place], [place] | | | | | | [address] | | | | | | [phone] | | | +--------+ + + + [...] Rd | | | | | | [place], [place] | | | | | | [address] | | | | | | [phone] | | | | | | | | +--------+ + + + + | 08/19/ | Surgery | Surgery | Chilo, | OPEN VENTRAL HERNIA | | 2019 | | | MD Jor[address] | REPAIR WITH | | | | | [address] | BIOLOGICAL MESH | | | | | [place], [place] | | | | | | [address] | | | | | | [phone] | | | | | | | | +--------+ + + + + | 09/15/ | Office | Cardiology | Randell Franks, | | | 2019 | Visit | | [address] | | | | | | [place], [place] | | | | | | [address] | | | | | | [phone] | | | | | | | | +--------+ + + + + documented as of this encounter Visit Diagnoses Not on filedocumented in this encounter"
--- OUTSIDE RECORDS SUMMARY | ~2019-06-25 | XMS | Encounter Summary ---
Demographics + + + | Address | [address] | | | [place] [address] | + + + | Home Phone [...] [place], [place] | | | | | [address] | | + + + + + | Ellie Vang | ECON | Unknown | | + + + + + Care Team Providers + +------+ + | Care Manager Sql Name | Role | Phone | + [...] | | 2017 | | Preventive at [facility] | MD [address] | | | | | [address] | [place], [place] | | | | | Mailcode: [facility] | [address] | | | | | [facility] | [phone] | | | | | and [address] | | | | | | [address] | | | | | | [place], [place] | | | | | | [address] | | | | | | [phone] | | | +--------+ + + + [...] [place] | | | | | | [address] | | | | | | [phone] | | | | | | | | +--------+ + + + + | 08/19/ | Surgery | Surgery | Chilo | OPEN VENTRAL HERNIA | | 2019 | | | MD [address] | REPAIR WITH | | | | | [address] | BIOLOGICAL MESH | | | | | [place], [place] | | | | | | [address] | | | | | | [phone] | | | | | | | | +--------+ + + + + | 09/15/ | Office | Cardiology | Randell Franks, | | | 2019 | Visit | | MD [address] | | | | | | [place], [place] | | | | | | [address] | | | | | | [phone] | | | | | | | | +--------+ + + + + documented as of this encounter Visit Diagnoses Not on filedocumented in this encounter"
--- OUTSIDE RECORDS SUMMARY | ~2019-06-25 | XMS | Encounter Summary ---
Demographics + + + | Address | [address] | | | [place] [address] | + + + | Home Phone [...] [place], [place] | | | | | [address] | | + + + + + | Ellie Vang | ECON | Unknown | | + + + + + Care Team Providers + +------+ + | Care Sand And Gravel Plant Operator Name | Role | Phone | [...] | | | [address] | [place], [place] | | | | | Mailcode: [place] | [address] | | | | | [facility] and | | | | | | [facility] | | | | | | [place], [place] | | | | | | [address] | | | | | | | [address] | | | | | | [place], [place] | | | | | | [address] | | | | | | [phone] | | | | | | | | +--------+ + + + + | 08/19/ | Surgery | Surgery | Chilo, | OPEN VENTRAL HERNIA | | 2019 | | | MD [address]ond [address] | REPAIR WITH | | | | | [address] | BIOLOGICAL MESH | | | | | [place], [place] | | | | | | [address] | | | | | | [phone] | | | | | | | | +--------+ + + + + | 09/15/ | Office | Cardiology | Randell Franks, | | | 2019 | Visit | | [address] | | | | | | [place], [place] | | | | | | [address] | | | | | | [phone] | | | | | | | | +--------+ + + + + documented as of this encounter Visit Diagnoses Not on filedocumented in this encounter"
--- OUTSIDE RECORDS SUMMARY | ~2019-06-25 | XMS | Encounter Summary ---
Demographics + + + | Address | [address] | | | [place] [address] | + + + | Home Phone [...] | [facility] | | | and [place] | + + + | Organization | [facility] | | | and [...] Team Providers + +------+ + | Care Epic Willow Specialist Name | Role | Phone | + +------+ + PCP | Unavailable | + +------+ + Encounter Details +--------+ + + + + | Date | Type | Department | Care Team | Description | +--------+ + + + + | // | Orders Only | [facility] | Conversion | | | 2019 | | NEPHROLOGY JESUS | Transaction, | | | | | [address] | Provider Unknown | | | | | [address] [place] [address] | | | | | | [address] | (Fax) | | | | | [phone] | | | +--------+ + + + [...] + + + | RED CELL | 5.00 | 3.8 - 5.1 10 | EXTERNAL | | | COUNT | | | LAB | | + + + + + + | Hgb | 14.6 | 12.0 - 16.0 | [...] | + +-------+ + + + | eGFR if not | | | EXTERNAL | | | | | | LAB | | | EMIRATI | | | | | + +-------+ [...]
--- OUTSIDE RECORDS SUMMARY | ~2019-06-25 | XMS | Encounter Summary ---
Demographics + + + | Address | [address] | | | [place] [address] | + + + | Home Phone [...] [place], [place] | | | | | [address] | | + + + + + | Ellie Vang | ECON | Unknown | | + + + + + Care Team Providers + +------+ + | Care Stacker And Sorter Operator Name | Role | Phone | [...] | | | without | PT | [address] | | | | | mention of | | Phone: | | | | | obstruction | | [phone] | | | | | or gangrene | | Fax: | | | | | | | [phone] | +--------+--------+ + + + + Encounter [...] | [facility] [address] | [address] | Hernia | | | | [address] | [place], [place] | | | | | Mailcode: L223A | [address] | | | | | [facility] | [phone] | | | | | [address] [place], [place] | | | | | | [address] | | | | | | [phone] | | | +--------+---------+ + + + [...] are still in, And wound is healed. [place] removed. Drainage is serous, very slight sanguinous. No eviden ce of deep subcutaneous infection. Abdominal wall currently intact. Drain site OK. Assessment/Plan: Satisfactory course following primary repair of incarcerated umbilical he rnia. Pt. Wants to obtain care, including drain removal and diabetic care in [place], so I have referred her to her [...] Rd | | | | | | [place], [place] | | | | | | [address] | | | | | | [phone] | | | | | | | | +--------+ + + + + | 08/19/ | Surgery | Surgery | Chilo, | OPEN VENTRAL HERNIA | | 2019 | | | MD Jorje [address] | REPAIR WITH | | | | | [address] | BIOLOGICAL MESH | | | | | [place], [place] | | | | | | [address] | | | | | | [phone] | | | | | | | | +--------+ + + + + | 09/15/ | Office | Cardiology | Randell Franks, | | | 2019 | Visit | Analisa CARVAJAL [address] | | | | | | [place], [place] | | | | | | [address] | | | | | | [phone] | | | | | | | [...]
--- OUTSIDE RECORDS SUMMARY | ~2019-06-25 | XMS | Encounter Summary ---
Demographics + + + | Address | [address] | | | [place] [address] | + + + | Home Phone [...] + | Katalina Padilla | ECON | [address] | | | | | [place], [place] | | | | | [address] | | + + + + + | Ellie Vang | ECON | Unknown | | + + + + + Care Team Providers + +------+ + | Care Grave Cleaner Name | Role | Phone | [...] | | | | | | | [place] [facility] | | | | | | | [facility] and | | | | | | | Healing, | | | | | | | Building [address] | | | | | | | [place], [place] | | | | | | | [address] | | | | | | | Phone: | | | | | | | [phone] | | | | | | | Fax: | | | | | | | [phone] | +--------+--------+ + + + + Encounter [...] | | | | Mailcode: Center | [place], [place] | ([facility]) | | | | for Health and | [address] | | | | | [facility], [facility] 2 | | | | | | [place], [place] | | | | | | [address] | | | | | | [phone] | | | +--------+---------+ + + + [...] of Visit: 10:06 to 10:32 (26 minutes ckpv-hr-jkmk with patient & friend) SUBJECTIVE: Is surprised she has gained weight; is disappointed. Still following her usual meal plan. H as d/c'd diet soda. Still struggling w/ eating out of boredom - choosing 100 kcal snacks but having ~3 of them at a time. Not as much emotional eating lately. Has been keeping food log s (on paper) - avg 6500-1599 kcal/d. Trying to increase activity. B: Atkins [...] provided. Olga Lidia Montanez RD, LD Pager [phone] documented in this en counter Plan of [...] [place] | | | | | | [address] | | | | | | [phone] | | | | | | | | +--------+ + + + + | 08/19/ | Surgery | Surgery | Chilo, | OPEN VENTRAL HERNIA | | 2019 | | | MD [address]ond [address] | REPAIR WITH | | | | | [address] | BIOLOGICAL MESH | | | | | [place] | | | | | | [address] | | | | | | [phone] | | | | | | | | +--------+ + + + + | 09/15/ | Office | Cardiology | Randell Franks, | | | 2019 | Visit | | [address] | | | | | | [place], [place] | | | | | | [address] | | | | | | [phone] | | | | | | | | +--------+ + + + + documented as of this encounter Procedures + +--------+ + + + | Procedure Name | Priori | Date/Time | Associated Diagnosis | Comments | | | ty | | | | + +--------+ + + + | [place] MNT RE-ASSESSMNT | Routin | 06/16/2013 | [...]
--- OUTSIDE RECORDS SUMMARY | ~2019-06-25 | XMS | Encounter Summary ---
Demographics + + + | Address | [address] | | | [place] [address] | + + + | Home Phone [...] + | Katalina Padilla | ECON | [address] | | | | | [place], [place] | | | | | [address] | | + + + + + | Ellie Vang | ECON | Unknown | | + + + + + Care Team Providers + +------+ + | Care Gaming Cashier Name | Role | Phone | + +------+ + | Kenyatta Cardenas MD | PCP | | + +------+ + Encounter Details +--------+ + + + + | Date | Type | Department | Care Team | Description | +--------+ + + + + | 06/06/ | Telephone | Digestive Health | Chilo | | | 2019 | | [place] [facility] [address] | MD [address]or[address] | | | | [address] | [address] | | | | | Mailcode: Center | [place], [place] | | | | | [facility] and | [address] | | | | | [facility] 2 | [phone] | | | | | [place], [place] | | | | | | [address] | | | | | | [phone] | | | +--------+ + + + [...] Rd | | | | | | [place], [place] | | | | | | [address] | | | | | | [phone] | | | | | | | | +--------+ + + + + | 08/19/ | Surgery | Surgery | Chilo, | OPEN VENTRAL HERNIA | | 2019 | | | MD [address] | REPAIR WITH | | | | | [address] | BIOLOGICAL MESH | | | | | [place], [place] | | | | | | [address] | | | | | | [phone] | | | | | | | | +--------+ + + + + | 09/15/ | Office | Cardiology | Randell Franks, | | | 2020 | Visit | | [address] | | | | | | [place], [place] | | | | | | [address] | | | | | | [phone] | | | | | | | | +--------+ + + + + documented as of this encounter Visit Diagnoses Not on filedocumented in this encounter"
--- OUTSIDE RECORDS SUMMARY | ~2019-06-25 | XMS | Encounter Summary ---
[...] [place], [place] | | | | | [address] | | + + + + + | Ellie Vang | ECON | Unknown | | + + + + + Care Team Providers + +------+ + | Care Supervisor Varnish Name | Role | Phone | + +------+ + | Kenyatta Cardenas MD | PCP | | + +------+ + Encounter Details +--------+ + + + + | Date | Type | Department | Care Team | Description | +--------+ + + + + | 03/22/ | Hospital | Radiology/Imaging | Keren Allen, | | | 2019 | Encounter | Lab at [facility] [address] | AG[address] | | | | | [address] [place] Mailcode: | [place], [place] | | | | | [facility] | [address] | | | | | Health and Healing, | [phone] | | | | | [address] | | | | | | Floor [facility] [place] | | | | | | [address] | | | | | | [phone] | | | +--------+ + + + [...] | | 0 | | | | CRB&RQF-Y6-SSQ01-GEN | mouth two times | | | [...] Rd | | | | | | [place], [place] | | | | | | [address] | | | | | | [phone] | | | | | | | | +--------+ + + + + | 08/19/ | Surgery | Surgery | Chilo, | OPEN VENTRAL HERNIA | | 2019 | | | MD Jorje [address] | REPAIR WITH | | | | | [address] | BIOLOGICAL MESH | | | | | [place], [place] | | | | | | [address] | | | | | | [phone] | | | | | | | | +--------+ + + + + | 09/15/ | Office | Cardiology | Randell Franks, | | | 2019 | Visit | | [address] | | | | | | [place], [place] | | | | | | [address] | | | | | | [phone] | | | | | | | [...]
--- OUTSIDE RECORDS SUMMARY | ~2019-06-25 | XMS | Encounter Summary ---
Demographics + + + | Address | [address] | | | [place] [address] | + + + | Home Phone [...] [place], [place] | | | | | [address] | | + + + + + | Ellie Vang | ECON | Unknown | | + + + + + Care Team Providers + +------+ + | Care Long Distance Operator Name | Role | Phone | [...] | | 2016 | | Preventive at [facility] | [address] | (Phentermine) | | | | [address] | Ave [place], [place] | | | | | Mailcode: [facility] | [address] | | | | | [facility] | [phone] | | | | | and [address], | | | | | | [address] | | | | | | [place], [place] | | | | | | [address] | | | | | | [phone] | | | +--------+ + + + [...] [place] | | | | | | [address] | | | | | | [phone] | | | | | | | | +--------+ + + + + | 08/19/ | Surgery | Surgery | Chilo | OPEN VENTRAL HERNIA | | 2019 | | | MD [address] | REPAIR WITH | | | | | [address] | BIOLOGICAL MESH | | | | | [place] | | | | | | [address] | | | | | | [phone] | | | | | | | | +--------+ + + + + | 09/15/ | Office | Cardiology | Randell Franks, | | | 2020 | Visit | | [address] | | | | | | [place], [place] | | | | | | [address] | | | | | | [phone] | | | | | | | | +--------+ + + + + documented as of this encounter Visit Diagnoses Not on filedocumented in this encounter"
--- OUTSIDE RECORDS SUMMARY | ~2019-06-25 | XMS | Encounter Summary ---
Demographics + + + | Address | [address] | | | [place] [address] | + + + | Home Phone [...] + | Katalina Padilla | ECON | [address] | | | | | [place], [place] | | | | | [address] | | + + + + + | Ellie Vang | ECON | Unknown | | + + + + + Care Team Providers + +------+ + | Care Licensing Services Clerk Name | Role | Phone | [...] | | | | | Procedures | [place], [place] | | | | | | TRANSTHORACI | [address] | | | | | | C | Phone: | | | | | | ECHOCARDIOGR | [phone] | | | | | | AM, ADULT | Fax: | | | | | | | [phone] | | +--------+--------+ + + + + [...] | 2016 | Visit | Preventive at [facility] | [address] | exertion) (Primary | | | | [address] | [place], [place] | Dx) | | | | Mailcode: [place] | [address] | | | | | [facility] | [phone] | | | | | and [address], | | | | | | [address] | | | | | | [place], [place] | | | | | | [address] | | | | | | [phone] | | | +--------+---------+ + + + [...] 500 mg by mouth once daily. CALCIUM CRB&XLE-B1-BSP28-GENIS ORAL Take 1 tablet by mouth two [...] himself to the local hospit al in [place] and so this has been delayed. ROS: [...] to lose the additional weight requested by [facility]. This current weight [...] Rd | | | | | | [place], [place] | | | | | | [address] | | | | | | [phone] | | | | | | | | +--------+ + + + + | 08/19/ | Surgery | Surgery | Chilo, | OPEN VENTRAL HERNIA | | 2019 | | | MD Jorje [address] | REPAIR WITH | | | | | [address] | BIOLOGICAL MESH | | | | | [place], [place] | | | | | | [address] | | | | | | [phone] | | | | | | | | +--------+ + + + + | 09/15/ | Office | Cardiology | Randell Franks, | | | 2019 | Visit | | [address] | | | | | | Ave [place], [place] | | | | | | [address] | | | | | | [phone] | | | | | | | [...]
--- OUTSIDE RECORDS SUMMARY | ~2019-06-25 | XMS | Encounter Summary ---
Demographics + + + | Address | [address] | | | [place] [address] | + + + | Home Phone [...] [place], [place] | | | | | [address] | | + + + + + | Ellie Vang | ECON | Unknown | | + + + + + Care Team Providers + +------+ + | Care Flap Maker Name | Role | Phone | [...] | | | [address] | [place], [place] | Dx); History of | | | | Mailcode: Center | [address] | Frandy-en-Y gastric | | | | for Health and | | bypass | | | | [facility], [facility] 2 | | | | | | [place], [place] | | | | | | [address] | | | | | | [phone] | | | +--------+---------+ + + + [...] to the healing stomach. There are also usp complications of poor wound healing and gastric u lcers. These ulcers are started by smoking or using other nicotine products (vapor cigarett es etc). Gastric bypass patients should also avoid NSAIDS(ibuprofen, advil, motrin, naprosyn/naproxe n/aleve) to prevent gastric/marginal ulcers. Please visit with our Criminal Legal Assistant (RD) for instructions about your Bariatric diet, assistance with calorie counts, tips and tricks for working with your diet restrictions, an d recipes after bariatric surgery. Daily yogurt; even just 1 tablespoon twice a day will provide enough probiotics to optimize digestion. Try to use a high-quality, probiotic-dense yogurt (eg Zaria's, [place], Lif eway Kefir, Temperature Regulator Pyrometer Duke's Frisian Yogurt). Remember to chew your food well, [...] protein daily, and 64 oz water daily. Mechanic Sound Technician just changed diet to he lp her [...] by communicating with her mother - Follow Mechanic Sound Technician recommendations to help with nausea (decrease volume, [...] Anisa Dillon MD PGY-1, Red Surgery Pager: [phone] documented in this encounter Plan of Treatment [...] Rd | | | | | | [place], [place] | | | | | | [address] | | | | | | [phone] | | | | | | | | +--------+ + + + + | 08/19/ | Surgery | Surgery | Chilo, | OPEN VENTRAL HERNIA | | 2019 | | | MD Jorje [address] | REPAIR WITH | | | | | [address] | BIOLOGICAL MESH | | | | | [place], [place] | | | | | | [address] | | | | | | [phone] | | | | | | | | +--------+ + + + + | 09/15/ | Office | Cardiology | Randell Franks, | | | 2019 | Visit | | [address] | | | | | | Ave [place], [place] | | | | | | [address] | | | | | | [phone] | | | | | | | [...]
--- OUTSIDE RECORDS SUMMARY | ~2019-06-25 | XMS | Encounter Summary ---
Demographics + + + | Address | [address] | | | [place] [address] | + + + | Home Phone [...] [place], [place] | | | | | [address] | | + + + + + | Ellie Vang | ECON | Unknown | | + + + + + Care Team Providers + +------+ + | Care Ruby Software Developer Name | Role | Phone [...] | | | | | | [place] [address] | | | | | | [phone] | | | +--------+ + + + [...] Rd | | | | | | [place], [place] | | | | | | [address] | | | | | | [phone] | | | | | | | | +--------+ + + + + | 08/19/ | Surgery | Surgery | Chilo, | OPEN VENTRAL HERNIA | | 2019 | | | MD Jorje [address] | REPAIR WITH | | | | | [address] | BIOLOGICAL MESH | | | | | [place] | | | | | | [address] | | | | | | [phone] | | | | | | | | +--------+ + + + + | 09/15/ | Office | Cardiology | Randell Franks, | | | 2019 | Visit | | [address] | | | | | | [place] | | | | | | [address] | | | | | | [phone] | | | | | | | | +--------+ + + + + documented as of this encounter Visit Diagnoses Not on filedocumented in this encounter"
--- OUTSIDE RECORDS SUMMARY | ~2019-06-25 | XMS | Encounter Summary ---
Demographics + + + | Address | [address] | | | [place] [address] | + + + | Home Phone [...] [place], [place] | | | | | [address] | | + + + + + | Ellie Vang | ECON | Unknown | | + + + + + Care Team Providers + +------+ + | Care Editing Internship Name | Role | Phone | [...] 2014 | | Preventive at [facility] | [address] | (Phentermine); | | | | [address] | [place], [place] | Refill Request | | | | Mailcode: [facility] | [address] | | | | | [facility] | [phone] | | | | | and [address], | | | | | | [address] | | | | | | [place], [place] | | | | | | [address] | | | | | | [phone] | | | +--------+--------+ + + + [...] | +--------+ + + + + | /03/ | Telephone-S | Pre-operative | | | [...] [place] | | | | | | [address] | | | | | | [phone] | | | | | | | | +--------+ + + + + | 08/19/ | Surgery | Surgery | Chilo, | OPEN VENTRAL HERNIA | | 2019 | | | MD [address] | REPAIR WITH | | | | | [address] | BIOLOGICAL MESH | | | | | [place], [place] | | | | | | [address] | | | | | | [phone] | | | | | | | | +--------+ + + + + | 09/15/ | Office | Cardiology | Randell Franks, | | | 2019 | Visit | | [address] | | | | | | [place], [place] | | | | | | [address] | | | | | | [phone] | | | | | | | | +--------+ + + + + documented as of this encounter Visit Diagnoses Not on filedocumented in this encounter"
--- OUTSIDE RECORDS SUMMARY | ~2019-06-25 | XMS | Encounter Summary ---
Demographics + + + | Address | [address] | | | [place] [address] | + + + | Home Phone [...] + | Katalina Padilla | ECON | [address] | | | | | [place], [place] | | | | | [address] | | + + + + + | Ellie Vang | ECON | Unknown | | + + + + + Care Team Providers + +------+ + | Care Equipment Validation Specialist Name | Role | Phone | + +------+ + | Kenyatta Cardenas MD | PCP | | + +------+ + Encounter Details +--------+ + + + + | Date | Type | Department | Care Team | Description | +--------+ + + + + | 03/02/ | Feed Mill Supervisor | Digestive Health | Keren Allen, | | | 2019 | | Center at [facility] [address] | AGACNP [address] | | | | | [address] | [place] [facility] [place] | | | | | Mailcode: [place] | [address] | | | | | for Health and | | | | | | [facility] 2 | | | | | | [place], [place] | | | | | | [address] | | | | | | | [...] Rd | | | | | | [place] | | | | | | [address] | | | | | | [phone] | | | | | | | | +--------+ + + + + | 08/19/ | Surgery | Surgery | Chilo | OPEN VENTRAL HERNIA | | 2019 | | | MD [address] | REPAIR WITH | | | | | [address] | BIOLOGICAL MESH | | | | | [place], [place] | | | | | | [address] | | | | | | [phone] | | | | | | | | +--------+ + + + + | 09/15/ | Office | Cardiology | Randell Franks, | | | 2019 | Visit | | [address] | | | | | | [place] | | | | | | [address] | | | | | | [phone] | | | | | | | | +--------+ + + + + documented as of this encounter Visit Diagnoses Not on filedocumented in this encounter"
--- OUTSIDE RECORDS SUMMARY | ~2019-06-25 | XMS | Encounter Summary ---
Demographics + + + | Address | [address] | | | [place] [address] | + + + | Home Phone [...] + | Katalina Padilla | ECON | [address] | | | | | [place], [place] | | | | | [address] | | + + + + + | Ellie Vang | ECON | Unknown | | + + + + + Care Team Providers + +------+ + | Care Efficiency Miner Name | Role | Phone | + +------+ + | Fadi Goodrich DO | PCP | | + +------+ + Encounter Details +--------+ + + + + | Date | Type | Department | Care Team | Description | +--------+ + + + + | 11/09/ | Abstract | Cardiology | Randell Franks, | | | 2014 | | Preventive at [facility] | MD [address] | | | | | [address] | Ave [place], [place] | | | | | Mailcode: [facility] | [address] | | | | | [facility] | [phone] | | | | | and Healing, | | | | | | [address] | | | | | | [place], [place] | | | | | | [address] | | | | | | [phone] | | | +--------+ + + + [...] Rd | | | | | | [place], [place] | | | | | | [address] | | | | | | [phone] | | | | | | | | +--------+ + + + + | 08/19/ | Surgery | Surgery | Chilo, | OPEN VENTRAL HERNIA | | 2019 | | | MD Jorje [address] | REPAIR WITH | | | | | [address] | BIOLOGICAL MESH | | | | | [place], [place] | | | | | | [address] | | | | | | [phone] | | | | | | | | +--------+ + + + + | 09/15/ | Office | Cardiology | Randell Franks, | | | 2019 | Visit | | [address] | | | | | | Ave [place], [place] | | | | | | [address] | | | | | | [phone] | | | | | | | | +--------+ + + + + documented as of this encounter Visit Diagnoses Not on filedocumented in this encounter"
--- OUTSIDE RECORDS SUMMARY | ~2019-06-25 | XMS | Encounter Summary ---
Demographics + + + | Address | [address] | | | [place] [address] | + + + | Home Phone [...] + | Author | [facility] | | | and [place] | + + + | Organization | [facility] | | | and [place] [...] Team Providers + +------+ + | Care Well Logging Operator Mud Analysis Name | Role | Phone | + +------+ + PCP | Unavailable | + +------+ + Encounter Details +--------+ + + + + | Date | Type | Department | Care Team | Description | +--------+ + + + + | 02/22/ | Orders Only | [facility] | Sulema Altamirano | | | 2019 | | CONVERSION [address] | Toshia, PASSENGER SCREENER [address] | | | | | [address] | [address] | | | | | [place], [place] | [place] [address] | | | | | [address] | | | | | | [phone] | | | +--------+ + + + [...] 0.61 m/s | | | MV Dec Rawlins: 2.43 m/s2 MV DecT: 247.51 ms MV E Jeffrey: 0.60 | | | m/s MV E/A Ratio: 0.98 MV PHT: 71.78 ms MVA By PHT: 3.06 | | | cm2 Septal e': 0.06 m/s Septal E/e': 9.54 Lateral e': 0.10 | | | m/s Lateral E/e': 5.84 RAP: 5 mmHg RV s': 0.11 m/s | | | Loan Servicing Specialist: JESSICA Authenticated by: Darryl Merrill Report Date/Time: | | | 02-22-2019 20:8:36 | | + + + + --------+ | Procedure Note | + --------+ | Aditya, Rad Conversion - 03/17/2019 1:08 PM PDT Patient Name: Tiny Cristina of | | : 1975 Performing Physician: Darryl | | [place] INDICATIONS------ | | -----Sinus Tachycardia CONCLUSIONS 1. [...] cmLVIDd: 4.70 cmLVPWd: 0.79 cmLVOT Area: 3.58 sp5DMJP Diam: 2.13 cm%FS: 39.25 | | %EF(Teich): [...] | Index (A-L): 14.72 ml/m2LAAs A2C: 10.03 uv5EHSHH A-L A2C: 22.69 mlLALs A2C: 3.76 | | cmLAAs A4C: 13.41 bv6WQYCF A-L A4C: 36.80 mlLALs A4C: 4.14 cmRAAs: 11.18 | | qz7YOIRT A-L: 22.84 mlRAESV MOD: 22.10 mlRALs: 4.64 cmTAPSE: 2.04 cmAV maxPG: | | 6.55 mmHgAV meanP.52 mmHgAV Vmax: 1.27 m/Genesis Vmean: 0.88 m/Genesis VTI: 26.50 | | cmAVA Vmax: 2.49 cm2AVA (VTI): 2.39 my6EHUM Vmax: 0.00 cm2/m2AVAI (VTI): 0.00 | | cm2/m2LVOT maxP.17 mmHgLVOT meanP.82 mmHgLVSI Dopp: 30.83 ml/m2LVSV Dopp: | | 63.52 mlLVOT Vmax: 0.89 m/sLVOT Vmean: 0.65 m/sLVOT VTI: 17.71 cmMV A Jeffrey: | | 0.61 m/sMV Dec Rawlins: 2.43 m/s2MV DecT: 247.51 msMV E Jeffrey: 0.60 m/sMV E/A Ratio: | | 0.98MV PHT: 71.78 msMVA By PHT: 3.06 bk0Wjbnsx e': 0.06 m/sSeptal E/e': | | 9.54Lateral e': 0.10 m/sLateral E/e': 5.84RAP: 5 mmHgRV s': 0.11 m/s | | Loan Servicing Specialist: HONEYuthenticated by: Darryl Hess Date/Time: 02-22-2019 20:8:36 [...] A Jeffrey: 0.61 m/s | |MV Dec Rawlins: 2.43 m/s2 | |MV DecT: 247.51 ms | |MV E Jeffrey: 0.60 m/s | |MV E/A Ratio: 0.98 | |MV PHT: 71.78 ms | |MVA By PHT: 3.06 cm2 | |Septal e': 0.06 m/s | |Septal E/e': 9.54 | |Lateral e': 0.10 m/s | |Lateral E/e': 5.84 | |RAP: 5 mmHg | |RV s': 0.11 m/s | | | |Loan Servicing Specialist: JESSICA | |Authenticated by: Darryl Merrill | [...]
--- OUTSIDE RECORDS SUMMARY | ~2019-06-25 | XMS | Encounter Summary ---
Demographics + + + | Address | [address] | | | [place] [address] | + + + | Home Phone [...] [place], [place] | | | | | [address] | | + + + + + | Ellie Vang | ECON | Unknown | | + + + + + Care Team Providers + +------+ + | Care Assessment Rn Name | Role | Phone | [...] | | | | | | [place] [address] | | | | | | [phone] | | | +--------+ + + + [...] Rd | | | | | | [place], [place] | | | | | | [address] | | | | | | [phone] | | | | | | | | +--------+ + + + + | 08/19/ | Surgery | Surgery | Chilo, | OPEN VENTRAL HERNIA | | 2019 | | | MD Jorje [address] | REPAIR WITH | | | | | [address] | BIOLOGICAL MESH | | | | | [place] | | | | | | [address] | | | | | | [phone] | | | | | | | | +--------+ + + + + | 09/15/ | Office | Cardiology | Randell Franks, | | | 2019 | Visit | | [address] | | | | | | [place] | | | | | | [address] | | | | | | [phone] | | | | | | | | +--------+ + + + + documented as of this encounter Visit Diagnoses Not on filedocumented in this encounter"
--- OUTSIDE RECORDS SUMMARY | ~2019-06-25 | XMS | Encounter Summary ---
Demographics + + + | Address | [address] | | | [place] [address] | + + + | Home Phone | | + + + | Preferred Language | Unknown | + + + | Marital Status | | + + + | Nondenominational Affiliation | Unknown | + + + | Race | Unknown | + + + | Ethnic Group | Unknown | + + + Author + + + | Author | [facility] | | | and Jeffana | + + + | Organization | [facility] | | | and Jeffana | + + + | Address | Unknown | + + + | Phone | Unavailable | + + + Support + + +---------+ + | Name | Relationship | Address | Phone | + + +---------+ + | Ktaalina Padilla | ECON | Unknown | Unavailable | + + +---------+ + | Ellie Barnett | ECON | Unknown | | + + +---------+ + Care Team Providers + +------+ + | Care Loading Manager Name | Role | Phone | [address] | | | | | | [place], [place] | | | | | | [address] | | | | | | [phone] | | | +--------+ + + + [...] filedocumented as of this encounter Visit Diagnoses + + | Diagnosis | + + | Absence of menstruation | + + documented in this encounter"
--- OUTSIDE RECORDS SUMMARY | ~2019-06-25 | XMS | Encounter Summary ---
Demographics + + + | Address | [address] | | | [place] [address] | + + + | Home Phone [...] [place], [place] | | | | | [address] | | + + + + + | Ellie Vang | ECON | Unknown | | + + + + + Care Team Providers + +------+ + | Care Laundry Operator Wash Room Name | Role | Phone | [...] | Pain | Diagnoses | Analisa Georges Field Applications Specialist Psych | | | | Management | Morbid | DANIELLE BrunerP | [address] | | | | | obesity with | [address] | | | | | BMI of [address] | [address] | Mailcode: | | | | | and over, | [place], [place] | [facility] | | | | | adult (HCC) | [address] | for Health | | | | | Procedures | Phone: | and Healing, | | | | | CONSULT TO | [phone] | Building 1, | | | | | PAIN | Fax: | 15th Floor | | | | | MANAGEMENT | [phone] | [place], [place] | | | | | [place] | | [address] | | | | | PSYCHIATRIC | | Phone: | | | | | DIAGNOSTIC | | [phone] | | | | | EVAL, NO MED | | Fax: | | | | | [facility] [place] | | [phone] | | | | | PSYCH TSTNG [...] | [facility] | | | with FRENCH DRAWER | | hypertension | [address] | [address] | | | | | Right | [address] | [address] | | | | | heart | [place], [place] | Mailcode: | | | | | failure | [address] | Center for | | | | | ([facility]) Type | Phone: | Health and | | | | | 2 diabetes | [phone] | Healing, | | | | | mellitus | Fax: | Building 2 | | | | | without | [phone] | [place], [place] | | | | | complication | | [address] | | | | | , with | | Phone: | | | | | long-term | | [phone] | | | | | current use | | Fax: | | | | | of insulin | | [phone] | | | | | ([facility]) | | | | | [...] | | [address] | Ave [place], [place] | adult ([facility]) (Primary | | | | Mailcode: Center | [address] | Dx); Chronic | | | | for Health and | | diastolic heart | | | | Healing, Building 2 | | failure ([facility]); | | | | [place], [place] | | Immobility; Severe | | | | [address] | | muscle | | | | [...] retinopathy | | | | | | ([facility]); | | | | | [...] encounter Patient Instructions Patient Instructions Shereen Georges, [facility] - 02/02/2017 9:00 AM PDTPlan: The following [...] to your private appointme nt with the paster supervisor. These classes will be scheduled apporoximately 1 month apart to allow time for you to put the teaching into action. Please call [phone] + Labs needed: Pre op: drug screen [...] are done + EKG: Please Have your roller painter do the eval and send it to us + Pre-op Psychological Evaluation: Your referral is at [facility], The Pain Management Office will call [...] be safely completed. + Sign up for Stage I Diagnostics so that we can communicate easily back and forth Once the above list is completed and copies have been received by our office, we will submi t for insurance authorization then schedule with the surgeon. KAIN De Dios DNP, WAFER MACHINE OPERATOR Nurse Practitioner for Bariatric Surgery [facility] | [address] | [place] | [address] | documented in this encounter Progress Notes Shereen Georges ACNP - 02/02/2017 9:00 AM PDTFormatting of this note might be different f rom the original. BARIATRIC INITIAL VISIT Provider: Shereen Pinto DNP, KAIN, WAFER MACHINE OPERATOR Referring Provider: Fadi Goodrich DO Reason for [...] t loss. Consults: Cardiology: Dr. Edson [facility] Senior Java Developer: Nickie : [facility] Paula But comes to magen Pond Sawyer at [facility]: Dr. Zhong for weight loss medication Worship or cultural reason you would refuse blood [...] once daily., Disp : , Rfl: CALCIUM CRB&RCO-E9-[id number]-GENIS ORAL, Take 2 tablets by mouth two [...] vagina Allergic rhinitis Anemia Anxiety Bipolar disorder ([facility]) Chronic wound infection of abdomen from 2010 Cough Depression Diverticulitis of colon Dizziness Glaucoma Heart burn Hemorrhoids Hernia of abdominal wall Incisional hernia, incarcerated 2012 Insomnia Irregular periods Kidney stone Leaking of urine Leg sore Lymphedema Morbid obesity with body mass index of 70 and over in adult ([facility]) Myalgia and myositis Nausea Neck pain Numbness Osteoarthritis of knee Palpitations Pneumonia Shortness of breath Staphylococcal infection Stroke ([facility]) TIA (transient ischemic attack) due to Bromocriptine Tinea corporis UTI (urinary tract infection) Past Surgical History Procedure Laterality Date Tonsillectomy and adenoidectomy Appendectomy, open 2010 Umbilical hernia repair 2010 Treatment of ankle fracture with screws remaining Incision and drainage of wound abscess x2 midline transverse wound s/p open appendectomy 2010 Ventral hernia repair 10/2012 Dr. Andie Brian Incisional hernia repair 03/01/2015 [facility]/ Dr. Cantu. Primary fascial closure and [...] History Narrative Updated 11/09/15 She lives in [place] with her mother and her sister (also her caregiver) lives in an [facility] below. She has 2 grandchildren (age 4 and 7) who live with her daughter and son-in-law Her boyfriend lives in [place] Family History Problem Relation Heart Attack Father [...] extre mity edema, hypertension, hyperlipidemia. Denies CHF, [place], ischemic heart disease, or pulmon nikki hypertension. [...] years without success. [facility] to control co-morbidities. [...] management, and was referred as well to security door installer. Plan: Request that her roller painter clear her, and make recommendations 3. Mammogram: [...] to your private appointme nt with the paster supervisor. These classes will be scheduled apporoximately 1 month apart to allow time for you to put the teaching into action. Please call [phone] + Labs needed: lipids, CBC, CMP, TSH, [...] are done + EKG: Please Have your roller painter do the eval and send it to us + Pre-op Psychological Evaluation: Your referral is at [facility], The Pain Management Office will call [...] be safely completed. + Sign up for Stage I Diagnostics so that we can communicate easily back and forth Once the above list is completed and copies have been received by our office, we will submi t for insurance authorization then schedule with the surgeon. KAIN De Dios DNP, WAFER MACHINE OPERATOR Nurse Practitioner for Bariatric Surgery [facility] | [address] | [place], [place] | [address] | documented in this encounter Plan of [...] Rd | | | | | | [place] | | | | | | [address] | | | | | | [phone] | | | | | | | | +--------+ + + + + | 08/19/ | Surgery | Surgery | Chilo, | OPEN VENTRAL HERNIA | | 2019 | | | MD Jorje [address] | REPAIR WITH | | | | | [address] | BIOLOGICAL MESH | | | | | [place], [place] | | | | | | [address] | | | | | | [phone] | | | | | | | | +--------+ + + + + | 09/15/ | Office | Cardiology | Randell Zhong, | | | 2019 | Visit | | [address] | | | | | | [place], [place] | | | | | | [address] | | | | | | [phone] | | | | | | | [...]
--- OUTSIDE RECORDS SUMMARY | ~2019-06-25 | XMS | Encounter Summary ---
Demographics + + + | Address | [address] | | | [place] [address] | + + + | Home Phone [...] [place], [place] | | | | | [address] | | + + + + + | Ellie Vang | ECON | Unknown | | + + + + + Care Team Providers + +------+ + | Care Precision Assembler Name | Role | Phone | [...] | | | | | | | [place] for | | | | | | | Health and | | | | | | | Healing, | | | | | | | Building 2 | | | | | | | [place], [place] | | | | | | | [address] | | | | | | | Phone: | | | | | | | [phone] | | | | | | | Fax: | | | | | | | [phone] | +--------+--------+ + + + + Encounter [...] | [address] | Lesly Gutiérrez [place], | 2 diabetes mellitus | | | | Mailcode: Center | [place] [address] | (HCC) | | | | for Health and | | | | | | [facility] [address] | | | | | | [place], [place] | | | | | | [address] | | | | | | [phone] | | | +--------+---------+ + + + [...] of Visit: 12:29 to 12:57 (28 minutes kxpm-mq-lzri with patient) SUBJECTIVE: Trying to follow a [...] post-surgery diet progression. 4. Call or send TradeCardhart message to dietitian with any questions. Contact information was provided. Follow up with dietitian prior to surgery to review post-surgical recommendations. Yuli Childs RD, CNSC, LD Pager# [phone] documented in this enco unter Plan of [...] Rd | | | | | | [place], [place] | | | | | | [address] | | | | | | [phone] | | | | | | | | +--------+ + + + + | 08/19/ | Surgery | Surgery | Chilo, | OPEN VENTRAL HERNIA | | 2019 | | | MD Jorje [address] | REPAIR WITH | | | | | [address] | BIOLOGICAL MESH | | | | | [facility] [place] | | | | | | [address] | | | | | | [phone] | | | | | | | | +--------+ + + + + | 09/15/ | Office | Cardiology | Randell Franks, | | | 2019 | Visit | | [address] | | | | | | [place], [place] | | | | | | [address] | | | | | | [phone] | | | | | | | | +--------+ + + + + documented as of this encounter Procedures + +--------+ + + + | Procedure Name | Priori | Date/Time | Associated Diagnosis | Comments | | | ty | | | | + +--------+ + + + | RI MNT RE-ASSESSMNT | Routin | 08/28/2014 | [...]
--- OUTSIDE RECORDS SUMMARY | ~2019-06-25 | XMS | Encounter Summary ---
Demographics + + + | Address | [address] | | | [place] [address] | + + + | Home Phone [...] + | Katalina Padilla | ECON | [address] | | | | | [place], [place] | | | | | [address] | | + + + + + | Ellie Vang | ECON | Unknown | | + + + + + Care Team Providers + +------+ + | Care Professional Sports Scout Name | Role | Phone | + [...] | | | | | bypass | [place], | Mailcode: | | | | | Nausea and | [place] | [address] [facility] | | | | | vomiting, | [address] | Hospital | | | | | intractabili | Phone: | [place], [place] | | | | | ty of | | [address] | | | | | vomiting not | Fax: | Phone: | | | | | specified, | [phone] | [phone] | | | | | unspecified | | Fax: | | | | | vomiting | | [phone] | | | | | type | [...] | | | | | | CONTRAST FL | | | | | | | CT SCAN OF | | | | | | | ABDOMEN | | | | | | | CONTRAST FL | | | | | | [...] | | | | | bypass | [place], | Mailcode: | | | | | Nausea and | [place] | [facility] | | | | | vomiting, | [address] | for Health | | | | | intractabili | Phone: | and Healing, | | | | | ty of | [phone] | Building 1, | | | | | vomiting not | Fax: | 5th Floor | | | | | specified, | [phone] | [place], [place] | | | | | unspecified | | [address] | | | | | vomiting | | Phone: | | | | | type | | [phone] | | | | | Diarrhea, | [...] | | | | | bypass | [place], | [address] | | | | | Nausea and | [place] | for Health | | | | | vomiting, | [address] | and Healing, | | | | | intractabili | Phone: | Building 2 | | | | | ty of | | [place], [place] | | | | | vomiting not | Fax: | [address] | | | | | specified, | [phone] | Phone: | | | | | unspecified | | [phone] | | | | | vomiting | | Fax: | | | | | type | | [phone] | | | | | Diarrhea, | [...] | [facility] | | | with BUSINESS UNIT DIRECTOR | | hypertension | [address] | [address] | | | | | Right | [address] | [address] | | | | | heart | [facility] [place] | Mailcode: | | | | | failure | [address] | Center for | | | | | ([facility]) Type | Phone: | Health and | | | | | 2 diabetes | [phone] | Healing, | | | | | mellitus | Fax: | Building 2 | | | | | without | [phone] | [facility] [place] | | | | | complication | | [address] | | | | | , with | | Phone: | | | | | long-term | | | | | | | current use | | Fax: | | | | | of insulin | | [phone] | | | | | ([facility] [...] | Center at [facility] [address] | AGACNP [address] | gastric bypass | | | | [address] | Ave [place], [place] | (Primary Dx); Nausea | | | | Mailcode: Center | [address] | and vomiting, | | | | for Health and | | intractability of | | | | Healing, Building 2 | | vomiting not | | | | [place], [place] | | specified, | | | | [address] | | unspecified vomiting | | | | [phone] | | type; Diarrhea, | | | [...] getting fluids at a local clinic in [place] -I will contact you if further testing is indicated -follow up with once of our surgeons once testing is complete -get some protein de la o--isopure or premier protein de la o. documented in this encounter Progress Notes Melissa Garay RN - 03/01/2019 1:50 PM PDTSpoke with patient's PCP office [phone] and notified them that Infusion unit at [facility] (fax [phone]) requires a provider with privileges there to sign the IV infusion orders. Since Dr. Cardenas is out on maternity leave, SOFI Ulrich will check with provider covering. Infusion order and chart not e faxed to PCP at [phone]. Patient notified. Charli Murillo - 03/01/2019 1:50 PM PDTPatient presents for blo od draw per Providers order Site: LEFT A/C Time: 14:30 Patient tolerated well; ONE ATTEMPT Keren Arcos AGACNKat - 03/01/2019 1:50 PM PDT BARIATRIC SURGERY [...] vagina Allergic rhinitis Anemia Anxiety Bipolar disorder ([facility]) Chronic wound infection of abdomen from 2010 [...] Andie Brian Incisional hernia repair 03/01/2015 [facility]/ Dr. Cantu. Primary fascial closure and scar excision Lap gastric byp, and nilesh-en-y gastroenterostomy w/ nilesh limb 150 cm or less 8 [facility] Social History Socioeconomic History Marital [...] file Gets together: Not on file Attends yarsanism service: Not on file Active member of club or organization: Not on file Attends meetings of clubs or organizations: Not on file Relationship status: Not on file Other Topics Concern Not on file Social History Narrative Updated 11/09/15 She lives in [place] with her mother and her sister (also her caregiver) lives in an apa rtment/duplex below. She has 2 grandchildren (age 4 and 7) who live with her daughter and son-in-law Her boyfriend lives in [place] HFpEF, DM2, HTN, Sleep Apnea (unable to [...] program here and refer her to our compensation specialist who also has expertise in physical [...] buccal film, , Disp: , Rfl: CALCIUM CRB&PRH-S9-ZEW23-GENIS ORAL, Take 2 tablets by mouth two [...] tablet, Take 1 tablet by mo ut once daily., Disp: 90 tablet, Rfl: [...] be administered closer to her home in [place]. LR 1-2 L 3 times weekly, until [...] to plan and will call and/or send TWINLINX message if any issues. Start time 1422, end time 1455. I spent a total of 33 minutes face to face with this patie nt. Over 50% of visit was in counseling. ALBINA Perrin Bariatric Surgery Nurse Practitioner [facility] | [address] | [place], [place] | [address] | documented in is encounter Plan of Treatment +--------+ + [...] Rd | | | | | | [place], [place] | | | | | | [address] | | | | | | [phone] | | | | | | | | +--------+ + + + + | 08/19/ | Surgery | Surgery | Chilo, | OPEN VENTRAL HERNIA | | 2019 | | | MD Jorje [address] | REPAIR WITH | | | | | [address] | BIOLOGICAL MESH | | | | | [place], [place] | | | | | | [address] | | | | | | [phone] | | | | | | | | +--------+ + + + + | 09/15/ | Office | Cardiology | Randell Franks, | | | 2019 | Visit | | [address] | | | | | | [place], [place] | | | | | | [address] | | | | | | [phone] | | | | | | | [...] - 03/22/2019 1:04 PM PDT EXAM: UGI BRIAN CASTELLON | | HISTORY: N&V, abdominal pain [...] | + + + + + | [facility] | [address] | [place] [address] | | | SERVICES, CORE | PARK [...] B: | | | | | | [employer].com/CSPerformed | | | | | | by [facility],[address] | | | | | | [facility] | | | | | | [address] | | | | | | [phone].[facility]. | | | | | | [facility], Ismael Willis MD, | | | | [...] [facility] | [address] | [place], [place] | | | UNIV PTH - INTFC | | [address] | | + + + + + [...] [facility] | | | (YEN NOAH) | [facility],[address] | | REG UNIV | | | SERUM | [place], [place] | | PTH - INTFC | | | | [address] | | | | | | [phone].[employer].uplab. | | | | | | Ismael [...] B: | | | | | | [employer]/CS | | | | + + + + + + + + | Specimen | + + | Blood - Blood | | (substance) | + + + + + + + | Performing | Address | City/State/Zipcode | Phone Number | | Organization | | | | + + + + + | [facility] | [address] | [place], [place] | | | UNIV PTH - INTFC | | [address] | | + + + + + [...] | | >18years: Deficiency: <20 ng/mL | CLAIRE, CORE | | Insufficiency: 20-29 ng/mL | | | Optimum Level: 30-80 ng/mL High: | | | 81-150 ng/ml Toxic: >150 ng/mL | | + + + + + + + + | Performing | Address | City/State/Zipcode | Phone Number | | Organization | | | | + + + + + | [facility] | [address] | [place] [address] | | | CLAIRE, CORE | [address] | | | [...] | + + + + + | [facility] | [address] | [place] [address] | | | SERVICES, CORE | PARK [...] | | | | | determined by [facility] | | | | | | [facility]. See | | | | | | Compliance Statement B: | | | | | | [employer].Xiimo/CSPerformed | | | | | | by [facility],[address] | | | | | | [facility] | | | | | | [address] | | | | | | [phone].[employer]. | | | | | | com, [...] [facility] | [address] | [place], [place] | | | UNIV PTH - INTFC | | [address] | | + + + + + [...] B: | | | | | | [employer]/CSPerformed | | | | | | by [facility],[address] | | | | | | [facility] | | | | | | [address] | | | | | | [phone].[employer]. | | | | | | Ismael [...] [facility] | [address] | [place], [place] | | | UNIV PTH - INTFC | | [address] | | + + + + + [...] + + + + | [facility] | [address] | [place] [address] | | | SERVICES, CORE | PARK [...] | | | | | determined by [facility] | | | | | | Laboratories. See | | | | | | Compliance Statement B: | | | | | | [employer]/CSPerformed | | | | | | by [facility],[address] | | | | | | [facility],[place] | | | | | | [address] | | | | | | [phone].[employer]. | | | | | | XiimoIsmael MD, | | | | | | [...] [facility] | [address] | [place], [place] | | | UNIV PTH - INTFC | | [address] | | + + + + + [...] [facility] | [address] | [place] [address] | | | SERVICES, CORE | PARK [...] [facility] | [address] | [place] [address] | | | SERVICES, CORE | PARK [...] | + + + + + | [facility] | [address] | [place] [address] | | | SERVICES, SPECIAL | CLARENCE [...] | + + + + + | [facility] | [address] | [place] [address] | | | SERVICES, CORE | PARK [...] B: | | | | | | [employer].Xiimo/CSPerformed | | | | | | by [facility],[address] | | | | | | [place] [place] [facility],[place] | | | | | | [address] | | | | | | [phone].[employer]. | | | | | | comIsmael [...] [facility] | [address] | [place], [place] | | | UNIV PTH - INTFC | | [address] | | + + + + + [...] + + + + | [facility] | [address] | [place] [address] | | | SERVICES, CORE | CLARENCE [...]
--- OUTSIDE RECORDS SUMMARY | ~2019-06-25 | XMS | Encounter Summary ---
Demographics + + + | Address | [address] | | | [place] [address] | + + + | Home Phone [...] [place], [place] | | | | | [address] | | + + + + + | Ellie Vang | ECON | Unknown | | + + + + + Care Team Providers + +------+ + | Care Insulation Manager Name | Role | Phone | [...] [address] | | | | | (FORMERLY [facility]) | [address] | [address] | | | | | Procedures | [place], [place] | [place], [place] | | | | | CONSULT TO | [address] | [address] | | | | | CAR | Phone: | Phone: | | | | | PREVENTATIVE | [phone] | [phone] | | | | | [facility] - | Fax: | Fax: | | | | | LIPIDS | [phone] | [phone] | +--------+--------+ + + + + Reason [...] | Cardiology | Diagnoses | Kp | Tiyn, | | | | | Morbid | Fadi Person DO | MD Randell | | | | | obesity | [address] | [address] | | | | | (HCC) Type | [address] | Ave | | | | | 2 diabetes | [place], | [place], [place] | | | | | mellitus | [place] [address] | [address] | | | | | without | Phone: | Phone: | | | | | complication | [phone] | [phone] | | | | | (HCC) | Fax: | Fax: | | | | | Procedures | [phone] | [phone] | | | | | SD EST | | | | | | [...] | 2017 | Visit | Preventive at [facility] | [address] | hypertension | | | | [address] | Ave [facility] [place] | (Primary Dx); Right | | | | Mailcode: [facility] | [address] | heart failure (HCC) | | | | [facility] | [phone] | | | | | and Healing, | | | | | | [address] | | | | | | [place], [place] | | | | | | [address] | | | | | | [phone] | | | +--------+---------+ + + + [...] 1 tablet by mouth once daily CALCIUM CRB&XNF-G8-IQC02-GENIS ORAL Take 2 tablets by mouth two [...] | Procedure | Surgery | | | 2019 | Pass | | | | +--------+ + + + + | 08/19/ | Hospital | Adult Acute Care | Chilo, | | | 2019 | Encounter | | MD Demond Recinos | | | | | | [address] | | | | | | [place], [place] | | | | | | [address] | | | | | | [phone] | | | | | | | [...] [place] | | | | | | [address] | | | | | | [phone] | | | | | | | | +--------+ + + + + | 09/15/ | Office | Cardiology | Randell Franks, | | | 2019 | Visit | | MD [address] | | | | | | Ave [place], [place] | | | | | | [address] | | | | | | [phone] | | | | | | | | +--------+ + + + + documented as of this encounter Visit Diagnoses + + | Diagnosis | + + | Essential hypertension - Primary | + + | Right heart failure (HCC) Congestive heart failure, unspecified | + + documented in this encounter
--- OUTSIDE RECORDS SUMMARY | ~2019-06-25 | XMS | Encounter Summary ---
Demographics + + + | Address | [address] | | | [place] [address] | + + + | Home Phone [...] + | Katalina Padilla | ECON | [address] | | | | | [place], [place] | | | | | [address] | | + + + + + | Ellie Vang | ECON | Unknown | | + + + + + Care Team Providers + +------+ + | Care Dry Mill Operator Name | Role | Phone [...] | | Center at [facility] [address] | ACNP [address] | | | | | [address] | [place], [place] | | | | | Mailcode: [place] | [address] | | | | | for Health and | [phone] | | | | | [address] [address] | | | | | | [place], [place] | | | | | | [address] | | | | | | [phone] | | | +--------+ + + + [...] Rd | | | | | | [place], [place] | | | | | | [address] | | | | | | [phone] | | | | | | | | +--------+ + + + + | 08/19/ | Surgery | Surgery | Chilo | OPEN VENTRAL HERNIA | 2019 | | | Jorje, MD [address] | REPAIR WITH | | | | | [address] | BIOLOGICAL MESH | | | | | [place], [place] | | | | | | [address] | | | | | | [phone] | | | | | | | | +--------+ + + + + | 09/15/ | Office | Cardiology | Randell Franks, | | | 2020 | Visit | | [address] | | | | | | [place], [place] | | | | | | [address] | | | | | | [phone] | | | | | | | | +--------+ + + + + documented as of this encounter Visit Diagnoses Not on filedocumented in this encounter"
--- OUTSIDE RECORDS SUMMARY | ~2019-06-25 | XMS | Encounter Summary ---
Demographics + + + | Address | [address] | | | [place] [address] | + + + | Home Phone [...] [place], [place] | | | | | [address] | | + + + + + | Ellie Vang | ECON | Unknown | | + + + + + Care Team Providers + +------+ + | Care Game Advisor Name | Role | Phone | [...] the | | | | | | [facility] [address] [facility] | | | | | | [facility] | | | | | | [place], [place] | | | | | | [address] | | | +--------+ + + + [...] Rd | | | | | | [place], [place] | | | | | | [address] | | | | | | [phone] | | | | | | | | +--------+ + + + + | 08/19/ | Surgery | Surgery | Chilo, | OPEN VENTRAL HERNIA | | 2019 | | | MD Jorje [address] | REPAIR WITH | | | | | [address] | BIOLOGICAL MESH | | | | | [facility] [place] | | | | | | [address] | | | | | | [phone] | | | | | | | | +--------+ + + + + | 09/15/ | Office | Cardiology | Randell Franks, | | | 2019 | Visit | | [address] | | | | | | Ave [place], [place] | | | | | | [address] | | | | | | [phone] | | | | | | | | +--------+ + + + + documented as of this encounter Visit Diagnoses Not on filedocumented in this encounter"
--- OUTSIDE RECORDS SUMMARY | ~2019-06-25 | XMS | Encounter Summary ---
Demographics + + + | Address | [address] | | | [place] [address] | + + + | Home Phone | | + + + | Preferred Language | Unknown | + + + | Marital Status | | + + + | Restorationism Affiliation | Unknown | + + + | Race | Unknown | + + + | Ethnic Group | Unknown | + + + Author + + + | Author | [facility] | | | and [place] | + + + | Organization | [facility] | | | and Jeffana [...] Providers + +------+ + | Care Lens Inspector Name | Role | Phone | + +------+ + PCP | Unavailable | + +------+ + Encounter Details +--------+ + + + + | Date | Type | Department | Care Team | Description | +--------+ + + + + | 08/31/ | Hospital | [facility] | Erich Wells | | | 2004 | Encounter | MED CTR SLEEP | MD Michael [address] | | | | | [address] [place] | | | | | [place], [place] | [place] [address] | | | | | [address] | [phone] | | | | | [phone] | | | +--------+ + + + [...]
--- OUTSIDE RECORDS SUMMARY | ~2019-06-25 | XMS | Encounter Summary ---
Demographics + + + | Address | [address] | | | [place] [address] | + + + | Home Phone | | + + + | Preferred Language | Unknown | + + + | Marital Status | | + + + | Bahai Affiliation | Unknown | + + + | Race | Unknown | + + + | Ethnic Group | Unknown | + + + Author + + + | Author | [facility] | | | and Jeffana | + + + | Organization | [facility] | | | and [...] Team Providers + +------+ + | Care Pet Walker Name | Role | Phone | + +------+ + PCP | Unavailable | + +------+ + Encounter Details +--------+ + + + + | Date | Type | Department | Care Team | Description | +--------+ + + + + | 11/20/ | Orders Only | [facility] | Conversion | | | 2016 | | NEPHROLOGY JESUS | Transaction, | | | | | [address] | Provider Unknown | | | | | [address] [place] [address] | | | | | | [address] | (Fax) | | | | | [phone] | | | +--------+ + + + [...]
--- OUTSIDE RECORDS SUMMARY | ~2019-06-25 | XMS | Encounter Summary ---
Demographics + + + | Address | [address] | | | [place] [address] | + + + | Home Phone [...] + | Katalina Padilla | ECON | [address] | | | | | [place], [place] | | | | | [address] | | + + + + + | Ellie Vang | ECON | Unknown | | + + + + + Care Team Providers + +------+ + | Care Web Database Developer Name | Role | Phone | + +------+ + | Fadi Goodrich DO | PCP | | + +------+ + Encounter Details +--------+ + + + + | Date | Type | Department | Care Team | Description | +--------+ + + + + | 06/07/ | Hospital | Radiology/Imaging | Ronna Clarke, | | | 2018 | Encounter | Lab at [facility] [address] | ACNP [address] | | | | | [address] [place] Mailcode: | [place], [place] | | | | | [facility] | [address] | | | | | Health and Healing, | [phone] | | | | | [address] | | | | | | Floor [place], [place] | | | | | | [address] | | | | | | [phone] | | | +--------+ + + + [...] | | 0 | | | | CRB&HZD-P2-OTE20-GEN | mouth two times | | | [...] Rd | | | | | | [place], [place] | | | | | | [address] | | | | | | [phone] | | | | | | | | +--------+ + + + + | 08/19/ | Surgery | Surgery | Chilo | OPEN VENTRAL HERNIA | | 2019 | | | MD Demond Rec[address] | REPAIR WITH | | | | | [address] | BIOLOGICAL MESH | | | | | [place], [place] | | | | | | [address] | | | | | | [phone] | | | | | | | | +--------+ + + + + | 09/15/ | Office | Cardiology | Rnadell Franks, | | | 2020 | Visit | | [address] | | | | | | [place], [place] | | | | | | [address] | | | | | | [phone] | | | | | | | | +--------+ + + + + documented as of this encounter Procedures + +--------+ + + + | Procedure Name | Priori | Date/Time | Associated Diagnosis | Comments | | | ty | | | | + +--------+ + + + | X-RAY MOHAMUDLuba Charlene RAVINDER | Routin | 06/07/2018 | History of [...] + + + | EXAM: Esophagram with master automotive technician radiograph HISTORY: RYGB 03/01/2018, | [facility] | | vomiting/pain ever since COMPARISON: 04/27/2018 CT TECHNIQUE: | RADIOLOGY VOICE | | Seo Marketing Specialist radiograph was performed. Single contrast exam of the esophagus, | RECOGNITION 2 | | gastric pouch, and gastrojejunostomy in upright positioning. | | | Radiation dose reduction technique was maximized where appropriate | | | using pulsed fluoroscopy and fluoro-store images. Fluoro Time 57 | | | second(s) FINDINGS: Seo Marketing Specialist shows stone in the upper pole [...] AM PST EXAM: Esophagram | | with master automotive technician radiograph HISTORY: RYGB 03/01/2018, vomiting/pain ever since COMPARISON: | | 04/27/2018 CT TECHNIQUE: Seo Marketing Specialist radiograph was performed. Single contrast exam of the | | esophagus, gastric pouch, and gastrojejunostomy in upright positioning. Radiation dose | | reduction technique was maximized where appropriate using pulsed fluoroscopy and | | fluoro-store images. Fluoro Time 57 second(s) FINDINGS:Seo Marketing Specialist shows stone in the upper | [...]
--- OUTSIDE RECORDS SUMMARY | ~2019-06-25 | XMS | Encounter Summary ---
Demographics + + + | Address | [address] | | | [place] [address] | + + + | Home Phone [...] [place], [place] | | | | | [address] | | + + + + + | Ellie Vang | ECON | Unknown | | + + + + + Care Team Providers + +------+ + | Care Vest Presser Name | Role | Phone | [...] | | | Procedures | | Rd [place], | | | | | [place] | | [place] | | | | | INITIAL | | [address] | | | | | ASSESSMNT | | | | | | | X15MIN [place] | | | | | | | [...] | 2012 | Visit | Center at [facility] [address] | mellitus (HCC) | | | | [address] | [address] | (Primary Dx); Morbid | | | | Mailcode: Center | [place], [place] | obesity (HCC) | | | | for Health and | [address] | | | | | Healing, [address] [address] | | | | | | [place], [place] | | | | | | [address] | | | | | | [phone] | | | +--------+---------+ + + + [...] PDTNutrition appointment, -try keeping food logs online: -www.DocLogix -Smart Holograms -[employer] -Aim for 2566-9870 calories a day -Increase physical activity -try [...] portions. Denies any binge eating. Weight change management specialist the past year: > 100 lb wt [...] see an RD for 2 years in [place] but insurance quit paying for it. Up [...] 1000/d--a more appropriate long-term range would be 9678-6236/day. Inadequat e calcium intake; did not address [...] w/ meals & snacks 2. Aim for 9678-4209 kcal/d 3. Keep food logs (at least [...] needed. Olga Lidia Montanez RD, LD Pager [phone] documented in this en counter Plan of [...] Rd | | | | | | [place], [place] | | | | | | [address] | | | | | | [phone] | | | | | | | | +--------+ + + + + | 08/19/ | Surgery | Surgery | Chilo, | OPEN VENTRAL HERNIA | | 2019 | | | MD Jorje [address] | REPAIR WITH | | | | | [address] | BIOLOGICAL MESH | | | | | [facility] [place] | | | | | | [address] | | | | | | [phone] | | | | | | | | +--------+ + + + + | 09/15/ | Office | Cardiology | Randell Franks, | | | 2019 | Visit | | [address] | | | | | | [place], [place] | | | | | | [address] | | | | | | [phone] | | | | | | | | +--------+ + + + + documented as of this encounter Procedures + +--------+ + + + | Procedure Name | Priori | Date/Time | Associated Diagnosis | Comments | | | ty | | | | + +--------+ + + + | [place] MNT INITIAL | Routin | 04/14/2013 | [...]
--- OUTSIDE RECORDS SUMMARY | ~2019-06-25 | XMS | Encounter Summary ---
Demographics + + + | Address | [address] | | | [place] [address] | + + + | Home Phone [...] + | Katalina Padilla | ECON | [address] | | | | | [place], [place] | | | | | [address] | | + + + + + | Ellie Vang | ECON | Unknown | | + + + + + Care Team Providers + +------+ + | Care Stone Repairer Name | Role | Phone | [...] | | [address] | Ave [place], [place] | | | | | Mailcode: [place] | [address] | | | | | for Health and | [phone] | | | | | [facility] | | | | | | [facility] [place] | | | | | | [address] | | | | | | | [...] Rd | | | | | | [place], [place] | | | | | | [address] | | | | | | [phone] | | | | | | | | +--------+ + + + + | 08/19/ | Surgery | Surgery | Chilo, | OPEN VENTRAL HERNIA | | 2019 | | | MD Jorje [address] | REPAIR WITH | | | | | [address] | BIOLOGICAL MESH | | | | | [place], [place] | | | | | | [address] | | | | | | [phone] | | | | | | | | +--------+ + + + + | 09/15/ | Office | Cardiology | Randell Franks, | | | 2019 | Visit | | [address] | | | | | | [place], [place] | | | | | | [address] | | | | | | [phone] | | | | | | | | +--------+ + + + + documented as of this encounter Visit Diagnoses Not on filedocumented in this encounter"
--- OUTSIDE RECORDS SUMMARY | ~2019-06-25 | XMS | Encounter Summary ---
Demographics + + + | Address | [address] | | | [place] [address] | + + + | Home Phone [...] + | Katalina Padilla | ECON | [address] | | | | | [place], [place] | | | | | [address] | | + + + + + | Ellie Vang | ECON | Unknown | | + + + + + Care Team Providers + +------+ + | Care Product Marketing Coordinator Name | Role | Phone [...] Encounter | Procedural Unit | MD Barb [address] | | | | | ([facility]) at [facility] [address] | [address] [place], [place] | | | | | [address] | [address] | | | | | Mailcode: [place] | [phone] | | | | | for Health and | | | | | | Healing, [address] | | | | | | [place], [place] | | | | | | [address] | | | | | | [phone] | | | +--------+ + + + [...] hours or on weekends and holiday Hospital Rig Welder toll free [phone] ext. [phone] and have the GI doctor main galley scullion paged. The provider who performed your procedure: [...] | | 0 | | | | CRB&HCQ-D1-GXD70-GEN | mouth two times | | | [...] from the original. PRE PROCEDURE NOTE: MR# [id number] Subjective: Elzbieta Cristina is a 44 y.o. [...] | | | | | | [address] | | | | | | [place], [place] | | | | | | [address] | | | | | | [phone] | | | | | | | | +--------+ + + + + | 08/19/ | Surgery | Surgery | Chilo, | OPEN VENTRAL HERNIA | | 2019 | | | MD Jorje [address] | REPAIR WITH | | | | | [address] | BIOLOGICAL MESH | | | | | [place], [place] | | | | | | [address] | | | | | | [phone] | | | | | | | | +--------+ + + + + | 09/15/ | Office | Cardiology | Randell Franks, | | | 2019 | Visit | | [address] | | | | | | Ave [place], [place] | | | | | | [address] | | | | | | [phone] | | | | | | | [...] + | MRN: | [facility] | | [id number] Date: 04/07/2019Patient Name: Elzbieta Curtis #: | ENDOSCOPY | | [id number] of : 1975CSN: [id number] Type: | | | AmbulatoryRoom: Endo 5Procedure: Upper GI | | | endoscopyIndications: Generalized abdominal pain, Nausea | | | with vomitingProviders: TAL LUND MD | | | (Doctor), KEERTHI BERNARD RN (Nurse), | | | EREN SLATER (Proration Clerk)Referring MD: SYLVIA Kilpatrick | | | [facility] Provider: Medicines: | | | Midazolam 8 [...] | | | The Olympus GIF-H190 Endoscope #[id number] | | | was introduced through the [...] | ONCE, 1 dose, [facility] 04/07/19 at 1300 | | | | | | + +--------+ +-------+------+------+ +---+---+ | | | +---+---+ + +-------+ +--------+---+---+ | fentaNYL (SUBLIMAZE) injection | Given | 04/07/20 | 50 mcg | | | | intravenous, INTRAPROCEDURE PRN, | | 19 11:05 | | | | | Starting [facility] 04/07/19 at 1105, | | AM PDT | | | | | Until [facility] 04/07/19 at 1105 | | | | | | + +-------+ +--------+---+---+ +---+---+ | | | +---+---+ + +-------+ +--------+---+---+ | fentaNYL (SUBLIMAZE) injection | Given | 04/07/20 | 50 mcg | | | | intravenous, INTRAPROCEDURE PRN, | | 19 11:09 | | | | | Starting [facility] 04/07/19 at 1109, | | AM PDT | | | | | Until Jasmyne 04/07/19 at 1109 | | | | | | + +-------+ +--------+---+---+ +---+---+ | | | +---+---+ + +-------+ +--------+---+---+ | fentaNYL (SUBLIMAZE) injection | Given | 04/07/20 | 50 mcg | | | | intravenous, INTRAPROCEDURE PRN, | | 19 11:16 | | | | | Starting [facility] 04/07/19 at 1116, | | AM PDT | | | | | Until [facility] 04/07/19 at 1116 | | | | | | + +-------+ +--------+---+---+ +---+---+ | | | +---+---+ + +-------+ +--------+---+---+ | fentaNYL (SUBLIMAZE) injection | Given | 04/07/20 | 50 mcg | | | | intravenous, INTRAPROCEDURE PRN, | | 19 11:18 | | | | | Starting [facility] 04/07/19 at 1118, | | AM PDT | | | | | Until [facility] 04/07/19 at 1118 | | | | | | + +-------+ +--------+---+---+ +---+---+ | | | +---+---+ + +-------+ +-------+---+---+ | lidocaine viscous (XYLOCAINE | Given | 04/07/20 | 15 mL | | | | VISCOUS) 2 % mucosal solution | | 19 12:35 | | | | | Mouth/Throat, INTRAPROCEDURE PRN, | | PM PDT | | | | | Starting [facility] 04/07/19 at 1104, | | | | | | | Until [facility] 04/07/19 at 1235 | | | [...]
--- OUTSIDE RECORDS SUMMARY | ~2019-06-25 | XMS | Encounter Summary ---
Demographics + + + | Address | [address] | | | [place] [address] | + + + | Home Phone [...] [place], [place] | | | | | [address] | | + + + + + | Ellie Vang | ECON | Unknown | | + + + + + Care Team Providers + +------+ + | Care Adobe Ball Mixer Name | Role | Phone | [...] + | 03/03/ | Documentati | NKECHI RUSTU at [facility] | Lab, Gi Procedure | Medical Records | | 2019 | on | [place] [address] | | Review | | | | [address] Mailcode: | | | | | | [facility] | | | | | | Health and Healing, | | | | | | [address] | | | | | | [place], [place] | | | | | | [address] | | | | | | [phone] | | | +--------+ + + + [...] [place] | | | | | | [address] | | | | | | [phone] | | | | | | | | +--------+ + + + + | 08/19/ | Surgery | Surgery | Chilo, | OPEN VENTRAL HERNIA | | 2019 | | | MD Jorje [address] | REPAIR WITH | | | | | [address] | BIOLOGICAL MESH | | | | | [place], [place] | | | | | | [address] | | | | | | [phone] | | | | | | | | +--------+ + + + + | 09/15/ | Office | Cardiology | Randell Franks, | | | 2019 | Visit | | [address] | | | | | | [place], [place] | | | | | | [address] | | | | | | [phone] | | | | | | | | +--------+ + + + + documented as of this encounter Visit Diagnoses Not on filedocumented in this encounter"
--- OUTSIDE RECORDS SUMMARY | ~2019-06-25 | XMS | Encounter Summary ---
Demographics + + + | Address | [address] | | | [place] [address] | + + + | Home Phone [...] [place], [place] | | | | | [address] | | + + + + + | Ellie Vang | ECON | Unknown | | + + + + + Care Team Providers + +------+ + | Care Production Worker Name | Role | Phone | [...] UPPER ENDOSCOPY | | 2018 | | [facility] | [address] | | | | | Admitting Desk | [place], [place] | | | | | Located on the | [address] | | | | | floor [address] [facility] | [phone] | | | | | [address] | | | | | | [place], [place] | | | | | | [address] | | | +--------+---------+ + + + [...] the endoscopy department toll free ext. [phone] or After business hours or on weekends and holiday Hospital Supervisor Heading toll free [phone] ext. [phone] and have the GI doctor deportation examiner paged. The provider who performed your procedure [...] | | 0 | | | | CRB&PIV-M2-FWE36-GEN | mouth two times | | | [...] Y gastric bypass Sedation: General anesthesia in [facility] Findings: Normal esophagus Normal appearing gastric pouch [...] 2:35 PM PST PRE PROCEDURE NOTE: MR# [id number] Subjective: Elzbieta Cristina is a 43 y.o. [...] Rd | | | | | | [place], [place] | | | | | | [address] | | | | | | [phone] | | | | | | | | +--------+ + + + + | 08/19/ | Surgery | Surgery | Chilo, | OPEN VENTRAL HERNIA | | 2019 | | | MD [address]ond [address] | REPAIR WITH | | | | | [address] | BIOLOGICAL MESH | | | | | [place], [place] | | | | | | [address] | | | | | | [phone] | | | | | | | | +--------+ + + + + | 09/15/ | Office | Cardiology | Randell Franks, | | | 2019 | Visit | | [address] | | | | | | [place] [facility] [place] | | | | | | [address] | | | | | | [phone] | | | | | | | [...] -----+ | MRN: | [facility] | | [id number] Date: 06/23/2018Patient Name: Elzbieta Curtis #: | MORGAN Y | | [id number] of : 1975CSN: [id number] Type: | | | AmbulatoryRoom: SORProcedure: Upper GI | | | endoscopyIndications: Nausea with vomiting, Status post | | | Depg-jz-AZhchkdvwm: KALEB WILCOX MD (Doctor), JOSE | | | NASIMA Hog Handler | | | (Hog Handler)Referring MD: DANIELLE GARCÍAPRequestdonya | | | Provider: [...] | | | The Olympus GIF-HQ190 Gastroscope #[id number] was | | | introduced through the [...] endoscope without resistance. The | | | glaml-qk-kvbvzvv limb was characterized by healthy appearing | [...] Initiated On: | | | 06/23/2018 3:58 [facility] Letter to: FADI GOODRICH DO | [...] + | Performing | Address | City/State/[facility] | Phone Number | | Organization [...] AMES | [address] | [place], [place] | | | [place] [facility] | [facility] | [address] | | | TESTS | | | [...] | Until [facility] 06/24/18 at 0027, | | | | [...] PRN, 1 dose, | | | Starting [facility] 06/23/18 at 1532, | | | Until [facility] 06/24/18 at 0027, | | | nausea/vomiting [...] | | | 06/23/18 at 1532, Until [facility] | | | | | | [...]
--- OUTSIDE RECORDS SUMMARY | ~2019-06-25 | XMS | Encounter Summary ---
Demographics + + + | Address | [address] | | | [place] [address] | + + + | Home Phone [...] [place], [place] | | | | | [address] | | + + + + + | Ellie Vang | ECON | Unknown | | + + + + + Care Team Providers + +------+ + | Care Automatic Maintainer Name | Role | Phone | + +------+ + PCP | Unavailable | + +------+ + Encounter Details +--------+ + + + + | Date | Type | Department | Care Team | Description | +--------+ + + + + | 05/13/ | Results | | Other, Faculty | | | 1992 | Only | | [phone] | | +--------+ + + + + [...] Rd | | | | | | [place], [place] | | | | | | [address] | | | | | | [phone] | | | | | | | | +--------+ + + + + | 08/19/ | Surgery | Surgery | Chilo, | OPEN VENTRAL HERNIA | | 2019 | | | MD Jorje [address] | REPAIR WITH | | | | | [address] | BIOLOGICAL MESH | | | | | [place], [place] | | | | | | [address] | | | | | | [phone] | | | | | | | | +--------+ + + + + | 09/15/ | Office | Cardiology | Randell Franks, | | | 2019 | Visit | | [address] | | | | | | [address] [place], [place] | | | | | | [address] | | | | | | [phone] | | | | | | | [...] + +---------+ + + | [facility] DEPARTMENT OF | | | | [...] + +---------+ + + | [facility] DEPARTMENT OF | | | | | RADIOLOGY | | | | + +---------+ + + documented in this encounter Visit Diagnoses Not on filedocumented in this encounter"
--- OUTSIDE RECORDS SUMMARY | ~2019-06-25 | XMS | Encounter Summary ---
Demographics + + + | Address | [address] | | | [place] [address] | + + + | Home Phone | | + + + | Preferred Language | Unknown | + + + | Marital Status | | + + + | Religion Affiliation | Unknown | + + + | Race | Unknown | + + + | Ethnic Group | Unknown | + + + Author + + + | Author | [facility] | | | and Jeffana | + + + | Organization | [facility] | | | and Jeffana [...] Team Providers + +------+ + | Care Discount Clerk Name | Role | Phone | + +------+ + PCP | Unavailable | + +------+ + Encounter Details +--------+ + + + + | Date | Type | Department | Care Team | Description | +--------+ + + + + | 11/04/ | Orders Only | [facility] | Conversion | | | 2017 | | NEPHROLOGY J[place]US | Transaction, | | | | | [address] | Provider Unknown | | | | | [address] [place] [address] | | | | | | [address] | (Fax) | | | | | [phone] | | | +--------+ + + + [...] + | BASIC METABOLIC | Routin | 11/04/2016 | | Results for this | | PANEL | e | 2:42 PM | | procedure are in the | | | | PDT | | results section. | + +--------+ + + + documented in this encounter Results Basic Metabolic Panel (11/04/2016 2:42 PM PDT) + +---------+ + + + | Component | Value | Ref Range | Performed | Pathologist | | | | | At | Signature | + +---------+ + + + | Glucose, | 150 (A) | 70 - 100 mg/dL | EXTERNAL | | | Fasting | | | LAB | | + +---------+ + + + | BUN | 15 | 6 - 23 mg/dL | EXTERNAL | | | | | | LAB | | + +---------+ + + + | Creatinine | 0.99 | 0.60 - 1.35 | EXTERNAL | | | | | mg/dL | LAB | | + +---------+ + + + | BUN/Creatin | 15.2 | 6.0 - 28.6 | EXTERNAL | | | ine Ratio | | | LAB | | + +---------+ + + + | Calcium | 9.9 | 8.4 - 10.2 | EXTERNAL | | | | | mg/dL | LAB | | + +---------+ + + + | Na | 137 [...] +---------+ + + + | CO2 | 18 (A) | 19 - 31 mmol/L | EXTERNAL | | | | | | LAB | | + +---------+ + + + | Anion Gap | 20.2 | 7 - 21 mmol/L | EXTERNAL | | | | | | LAB | | + +---------+ + + + | Estimated | 62 | mg/dL | EXTERNAL | | | [...]
--- OUTSIDE RECORDS SUMMARY | ~2019-06-25 | XMS | Encounter Summary ---
Demographics + + + | Address | [address] | | | [place] [address] | + + + | Home Phone [...] [place], [place] | | | | | [address] | | + + + + + | Ellie Vang | ECON | Unknown | | + + + + + Care Team Providers + +------+ + | Care Chief Estimator Name | Role | Phone | [...] repair incarcerated | | 2012 | | [facility] | [address] [facility] | ventral hernia; | | | | Admitting Desk | [address] | possible bowel | | | | Located on the | [place], [place] | resection; | | | | floor [address] [facility] | [address] | | | | | [address] | [phone] | | | | | [place], [place] | | | | | | [address] | | | +--------+---------+ + + + [...] yuriy tral hernia. She was transferred from [place] for surgical evaluation of possible incarcer ated [...] Cipro. POD 5 she was discharged ho [place], tolerating a diabetic diet. Having bowel function. [...] yuriy tral hernia. She was transferred from [place] for surgical evaluation of possible incarcer ated [...] Cipro. POD 5 she was discharged ho [place], tolerating a diabetic diet. Having bowel function. [...] keeping you from eating and drinking, Call [phone]. It is important to stay hydrated! If [...] taking narcotic that contain Tylenol (acetaminophen) Example: [place], Lortab, Vicodin, hydrocodone/APAP, Percocet, Tylenol #3 PAIN MEDICATIONS are ONLY REFILLED during CLINIC APPOINTMENTS. Please call [phone] to schedule an appointment. Your Follow-Up Plan Follow up with ROBIN MEJIA in 2 weeks. Contact information: [address] [facility] [address] Vitals on discharge: Ht 154.9 cm (5' [...] [facility] [place] DEPARTMENT OF SURGERY EMERGENCY GENERAL SURGERY Division [...] without erythema and no infecti on noted. [place] intact : good urine output and Patient [...] clinic - [place] [address] pager number [place] [phone] [facility] [address] Aminta Goodiwn Md - 11/11/2012 7:40 AM PDT [facility] DEPARTMENT OF SURGERY EMERGENCY GENERAL SURGERY Division of Trauma and Critical Care Attending Physician: Andie Brian MD Progress Note Note Date: 11/11/2012 Admission Date: 11/06/2012 DYLAN ROMERO, [id number] Hospital Day #5 INTERVAL EVENTS none acute [...] mg, Rectal, DAILY PRN, Aminta Wilson MD anmdietegj-oaqshorxpfxnx-ummtgfti (aka FIORICET) 50-325-40 mg 1 Tab, 1 [...] Hospital Problem List: 1) Ventral Hernia ASSESSMENT: yDlan Romero is a 37 y.o. female who [...] Jayne Ponce MD, 1 mg at 11/10/12801 jadsjsdxyy-kbpmvcpptakck-rpoukaxu (aka FIORICET) 50-325-40 mg 1 Tab, 1 [...] in preservative free NaCl 0.9% 50 mL FRUCTOSE LOADER infusion, , Intravenous, KIESHA NUOUS, Aracely Flores [...] diet -add bowel regimen Acute pain -HM FRUCTOSE LOADER, tylenol -convert to oral pain medication once [...] Fluids: LR 125ml/hr Feeding: NPO Analgesia: Dilaudid FRUCTOSE LOADER Sedation: not indicated Thromboprophylaxis: enoxaparin Head of [...] Ponce MD, 1 mg at 11/09/12 0855 tjvcsnmloe-jmxnigqlqshbn-corupchx (aka FIORICET) 50-325-40 mg 1 Tab, 1 [...] in preservative free NaCl 0.9% 50 mL FRUCTOSE LOADER infusion, , Intravenous, KIESHA NUOUS, Aracely Flores [...] 5 mg, 5 mg, Intravenous, Q4H PRN, iDone Grimes MD, 5 mg at 11/09/12 0443 naloxone (aka NARCAN) injection, , Intravenous, PRN, Aracely Curzo DO nystatin (aka MYCOSTATIN) powder, , Topical, [...] drainage <30ml for 24hrs Acute pain -HM FRUCTOSE LOADER, tylenol Diabetes: -insulin gtt not started due [...] Fluids: LR 125ml/hr Feeding: NPO Analgesia: Dilaudid FRUCTOSE LOADER Sedation: not indicated Thromboprophylaxis: enoxaparin Head of bed: > 30 Ulcer prophylaxis: pepcid Glycemic control: adequate Activity/PT/OT: Ongoing Yogurt: ABX on Probiotics:yes AMINTA WILSON MD General Surgery, R1 aleb Walker S, N P - 11/08/2012 8:49 AM PDT [facility] [place] DEPARTMENT OF SURGERY EMERGENCY GENERAL SURGERY Division of Trauma and Critical Care Attending Physician: Andie Brian MD Progress Note Note Date: 11/08/2012 Admission Date: 11/06/2012 DYLAN ROMERO, [id number] Hospital Day #2 INTERVAL EVENTS NO SUBJECTIVE Pain well controlled; has headache attributed to dilaudid FRUCTOSE LOADER Tylenol did not help. Flatus: YES Tolerating [...] trials today. -DC ruiz Acute pain -HM FRUCTOSE LOADER, tylenol Diabetes: -insulin gtt not started due [...] Fluids: LR 125ml/hr Feeding: NPO Analgesia: Dilaudid FRUCTOSE LOADER Sedation: not indicated Thromboprophylaxis: enoxaparin Head of bed: > 30 Ulcer prophylaxis: pepcid Glycemic control: adequate Activity/PT/OT: Ongoing Yogurt: ABX on Probiotics: No KALEB WALKER NP [facility] [address] [place] [facility] elvin Stephens MD - 11/07/2012 9:51 PM [...] 7.33* PCO2 49* PO2 113* HCO3 25 LQREI8ZPA 26 E5HMBFZO 98.3* O1JJRLJWS -- FIO2 60 ABGEXCESS -0.9 Assessment, Medical Decision Making and Plan 1. Incarcerated hernia, now s/p repair and panniculectomy -Binder, pain control, minimize nausea and coughing PRN. -NG clamping trials today. 2. Acute pain -HM FRUCTOSE LOADER, tylenol 3. Diabetes: -insulin gtt 4. Morbid [...] Dione Grimes MD R-2, General Surgery Pager: [phone] [facility] [place] Department of Surgery Trauma ICU Team Pager (24hrs/day): [phone] I was present with the resident during the history and exam. I discussed the case with the resident and agree with the findings and plan as documented in the resident s note. KELVIN STEPHENS MD [facility] [address] [facility] [facility] [place] [address] [id number] Onur Graves MD - 11/07/2012 2:37 AM [...] in preservative free NaCl 0.9% 50 mL FRUCTOSE LOADER infusion Intravenous CON TINUOUS Aracely Flores, DO [...] POD#1 s/p primary repair. 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 intern brand and prn tylenol, continue prozac and zyprexa [...] F: probable remain NPO today A: dilaudid intern brand, prn tylenol S: prn benzos as she is at home T: will start prophylactic lovenox today H: HOB >30 degrees U: pepcid G: insulin gtt ONUR ALLEN MD, PGY3 [place] [address] [facility] [address] [facility] [address]uhs8t [place] [address] Onelia Shrestha MD - 11/06/2012 8:41 AM PDT [facility] [place] DEPARTMENT OF SURGERY Division of Trauma and Critical Care Emergency General Surgery / Acute Care Surgery Attending Physician: Andie Brian MD Note Date: 11/06/2012 Admission Date: 11/06/2012 DYLAN ROMERO, [id number] Hospital Day #0 OVERNIGHT EVENTS: anxious SUBJECTIVE: [...] wwp LABS: reviewed and are available in [facility] (if new data) IMAGING: VASCULAR: IMPRESSION: Dylan [...] Rd | | | | | | [place], [place] | | | | | | [address] | | | | | | [phone] | | | | | | | | +--------+ + + + + | 08/19/ | Surgery | Surgery | Chilo, | OPEN VENTRAL HERNIA | | 2019 | | | MD Jorje [address] | REPAIR WITH | | | | | [address] | BIOLOGICAL MESH | | | | | [place], [place] | | | | | | [address] | | | | | | [phone] | | | | | | | | +--------+ + + + + | 09/15/ | Office | Cardiology | Randell Franks, | | | 2019 | Visit | | [address] | | | | | | Ave [place], [place] | | | | | | [address] | | | | | | [phone] | | | | | | | [...] | + +--------+ + + + | HEMOGLOBIN-PASCUAL POC | Routin | 11/06/2012 | Hernia [...] + + | MADAY CEDILLO ONLY | Routin | 11/06/2012 | | [...] Mae | | | | | | [place] | | | | + + + [...] AMES | [address] | [place], [place] | | | [facility] | [address] | [address] | | | TESTS | | | [...] [facility] | [address] | [place], [place] | | | [facility]ARE | [address] | [address] | | | TESTS | | | [...] [facility] | [address] | [place] [address] | | | SERVICES, CORE | PARK [...] | | | LABORATORY | | | [place] | | | SERVICES, | | | [...] [facility] | [address] | [place] [address] | | | LYDIA RANGEL | [address]ARK [...] | + + + + + | [facility] | [address] | [place] [address] | | | SERVICES, CORE | CLARENCE [...] [facility] | [address] | [place], [place] | | | [place] [facility] | [address] | [address] | | | TESTS | | | [...] [facility] | [address] | [place], [place] | | | [place] [facility] | [address] | [address] | | | TESTS | | | [...] + + + | [facility] | [address] | [place], [place] | | | [place] [facility] | [address] | [address] | | | TESTS | | | [...] [place] | [address] | [place], [place] | | | [place] [facility] | [address] | [address] | | | TESTS | | | [...] | [facility] | [address] | [place], [place] | | | [place] [facility] | [address] | [address] | | | TESTS | | | [...] [facility] | [address] | [place] [address] | | | SERVICES, CORE | PARK [...] | | | LABORATORY | | | MONTENEGRIN | | | SERVICES, | | | [...] + + | [facility] [employer] | [address] | [place] [address] | | | CLAIRE, LYDIA | CLARENCE [...] [facility] | [address] | [place] [address] | | | LYDIA RANGEL | CLARENCE [...] (H) | 60 - 99 mg/dL | [facility] - | | | [...] [place] | [address] | [place], [place] | | | [facility] | [address] | [address] | | | TESTS | | | [...] AMES | [address] | [place], [place] | | | [facility] | [facility] | [address] | | | TESTS | | | [...] [facility] | [address] | [place], [place] | | | [facility] | [address] | [address] | | | TESTS | | | [...] (H) | 60 - 99 mg/dL | [facility] - | | | [...] MARQUAM | [address] | [place], [place] | | | [facility] | [facility] | [address] | | | TESTS | | | [...] AMES | [address] | [place], [place] | | | [place] [facility] | [address] | [address] | | | TESTS | | | [...] | + + + + + | [facility] | [address] | [place] [address] | | | SERVICES, CORE | CLARENCE [...] | | | LABORATORY | | | MONTENEGRIN | | | SERVICES, | | | [...] the MDRD equation recommended by the | [facility] | | National Kidney [...] [facility] | [address] | [place] [address] | | | SERVICES, CORE | [address] | | | + + + + + MAGNESIUM, PLASMA (11/10/2012 3:40 AM PDT) + +---------+ + + + | Component | Value | Ref Range | Performed | Pathologist | | | | | At | Signature | + +---------+ + + + | MAGNESIUM,P | 1.5 (L) | 1.8 - 2.5 mg/dL | [facility] | | | LASMA | | | [...] | + + + + + | [facility] | [address] | [place] [address] | | | SERVICES, CORE | CLARENCE [...] [facility] | [address] | [place], [place] | | | [facility] | [facility] | [address] | | | TESTS | | | [...] [facility] | [address] | [place], [place] | | | [facility] | [facility] | [address] | | | TESTS | | | | + + + + + CAPILLARY BLOOD GLUCOSE (NO CHG), POC (11/09/2012 12:19 PM PDT) + +-------+ + + + | Component | Value | Ref Range | Performed | Pathologist | | | | | At | Signature | + +-------+ + + + | BLOOD | 81 | 60 - 99 mg/dL | [facility] - | | | [...] + + + | [facility] | [address] | [place], [place] | | | [facility] | [address] | [address] | | | TESTS | | | [...] | | | Final CULTURE | | [place] | | | | RESULT:>100,000 cfu/ml | [...] + | [facility] | [address] | [place] [address] | | | [facility] | | | | + + + [...] | + + + + + | [facility] | [address] | [place] [address] | | | SERVICES, CORE | CLARENCE [...] + | [facility] | [address] | [place] [address] | | | SERVICES, CORE | PARK [...] | [facility] | [address] | [place], [place] | | | [place] [facility] | [address] | [address] | | | TESTS | | | [...] | | | LABORATORY | | | MONT[place]GRIN | | | SERVICES, | | | [...] | + + + + + | [facility] | [address] | [place] [address] | | | LYDIA RANGEL | CLARENCE [...] [facility] | [address] | [place] [address] | | | SERVICES, LYDIA | PARK [...] [facility] | [address] | [place] [address] | | | LYDIA RANGEL | CLARENCE [...] 86 | 60 - 99 mg/dL | [facility] - | | | [...] [facility] | [address] | [place], [place] | | | [facility] | [facility] | [address] | | | TESTS | | | [...] AMES | [address] | [place], [place] | | | [place] [facility] | [address] | [address] | | | TESTS | | | [...] [facility] | [address] | [place], [place] | | | [place] [facility] | [address] | [address] | | | TESTS | | | [...] [facility] | [address] | [place] [address] | | | SERVICES, CORE | PARK [...] [facility] | [address] | [place] [address] | | | SERVICES, CORE | PARK [...] | | | LABORATORY | | | [place] | | | SERVICES, | | | [...] | + + + + + | [facility] | [address] | [place] [address] | | | SERVICES, LYDIA | CLARENCE [...] [facility] | [address] | [place], [place] | | | [facility] | [facility] | [address] | | | TESTS | | | [...] [facility] | [address] | [place], [place] | | | [facility] | [facility] | [address] | | | TESTS | | | [...] AMES | [address] | [place], [place] | | | [place] [facility] | [address] | [address] | | | TESTS | | | [...] | + + + + + | [facility] | [address] | [place] [address] | | | SERVICES, CORE | CLARENCE [...] [facility] | [address] | [place] [address] | | | SERVICES, CORE | PARK [...] | | | LABORATORY | | | [place]IN | | | SERVICES, | | | [...] | + + + + + | [facility] | [address] | [place] [address] | | | SERVICES, CORE | PARK [...] 270 | 150 - 400 K/cu | [facility] | | | COUNT | | mm [...] [facility] | [address] | [place] [address] | | | SERVICES, CORE | PARK [...] | | | LABORATORY | | | [place]IN | | | SERVICES, | | | [...] + + | [facility] | [address] | [place] [address] | | | SERVICES, CORE | PARK [...] [facility] | [address] | [place] [address] | | | SERVICES, CORE | CLARENCE [...] (H) | 60 - 99 mg/dL | [facility] - | | | [...] AMES | [address] | [place], [place] | | | [facility] | [address] | [address] | | | TESTS | | | [...] AMES | [address] | [place], [place] | | | [facility] | [address] | [address] | | | TESTS | | | | + + + + + LACTATE (ART)VALERIE (11/06/2012 11:08 AM PDT) + +-------+ [...] [facility] | [address] | [place], [place] | | | [place] [facility] | [address] | [address] | | | TESTS | | | | + + + + + SODIUM (ART) POC SOR (11/06/2012 11:08 AM PDT) + [...] [facility] | [address] | [place], [place] | | | [facility] | [facility] | [address] | | | TESTS | | | [...] | | POC | | mmol/L | [facility] | | [...] AMES | [address] | [place], [place] | | | [place] [facility]ARE | [address] | [address] | | | TESTS | | | [...] [facility] | [address] | [place], [place] | | | [facility] | [facility] | [address] | | | TESTS | | | | + + + + + CHLORIDE (BERNARD)VALERIE (11/06/2012 11:08 AM PDT) + +-------+ [...] [facility] | [address] | [place], [place] | | | [facility]ARE | [facility] | [address] | | | TESTS | | | | + + + + + CALCIUM (ART) POC SOR (11/06/2012 11:08 AM PDT) + [...] [facility] | [address] | [place], [place] | | | [place] [facility] | [address] | [address] | | | TESTS | | | [...] [facility] | [address] | [place], [place] | | | [facility] | [address] | [address] | | | TESTS | | | [...] [facility] | [address] | [place], [place] | | | [place] [facility] | [address] | [address] | | | TESTS | | | [...] AMES | [address] | [place], [place] | | | [facility] | [address] | [address] | | | TESTS | | | [...] [facility] | [address] | [place] [address] | | | CLAIRE | CL[address]ENCE [address]ONNER | | | | TRANSFUSION MEDICINE | [...] (H) | 60 - 99 mg/dL | [facility] - | | | [...] [place] | [address] | [place], [place] | | | [place] [facility] | [address] | [address] | | | TESTS | | | [...] [facility] | [address] | [place] [address] | | | SERVICES, | [address] [...] [facility] | [address] | [place] [address] | | | SERVICES, | [address] [...] | + + + + + | [facility] | [address] | [place] [address] | | | SERVICES, CORE | CLARENCE [...] [facility] | [address] | [place] [address] | | | SERVICES, LYDIA | [address] [...] [facility] | [address] | [place] [address] | | | SERVICES, CORE | [address] [...] [facility] | [address] | [place] [address] | | | SERVICES, CORE | PARK [...] | | | LABORATORY | | | [place] | | | SERVICES, | | | [...] the MDRD equation recommended by the | [facility] | | National Kidney [...] [facility] | [address] | [place] [address] | | | LYDIA RANGEL | CLARENCE [...] view image for the detailed interpretation from [employer] results. | CARDIOLOGY | + + + + + + + + | Performing | Address | City/State/Zipcode | Phone Number | | Organization | | | | + + + + + | [facility] | [address] | [place], [place] | | | CARDIOLOGY | [address] | [address] | | + + + + + [...] [facility] | [address] | [place] [address] | | | SERVICES, CORE | [address] | | | + + + + + AMDAY CEDILLO ONLY (11/06/2012 4:51 AM PDT) + [...] [facility] | [address] | [place] [address] | | | SERVICES, LYDIA | [address]NER | | | + + + + + documented in this encounter Visit Diagnoses + + | Diagnosis | + + | Incarcerated ventral hernia Ventral hernia, unspecified, with obstruction | + + documented in this encounter
--- OUTSIDE RECORDS SUMMARY | ~2019-06-25 | XMS | Encounter Summary ---
Demographics + + + | Address | [address] | | | [place] [address] | + + + | Home Phone [...] [place], [place] | | | | | [address] | | + + + + + | Ellie Vang | ECON | Unknown | | + + + + + Care Team Providers + +------+ + | Care Body Art Technician Name | Role | Phone | + +------+ + | Fadi Goodrich DO | PCP | | + +------+ + Encounter Details +--------+ + + + + | Date | Type | Department | Care Team | Description | +--------+ + + + + | 08/16/ | Abstract | Dig[facility]ive [facility] | Kathy Feldman, | | | 2013 | | Center at [facility] [address] | CH[employer]ING [employer] OPERATOR [address] | | | | | [address] | [facility] [address] | | | | | Mailcode: Center | [place], [place] | | | | | [facility] and | [address] | | | | | [facility] [address] | [phone] | | | | | [place], [place] | | | | | | [address] | | | | | | [phone] | | | +--------+ + + + [...] [address] | | | | | | [place], [place] | | | | | | [address] | | | | | | [phone] | | | | | | | | +--------+ + + + + | 08/19/ | Surgery | Surgery | Chilo | OPEN VENTRAL HERNIA | | 2019 | | | MD Jorje [address] | REPAIR WITH | | | | | [address] | BIOLOGICAL MESH | | | | | [place], [place] | | | | | | [address] | | | | | | [phone] | | | | | | | | +--------+ + + + + | 09/15/ | Office | Cardiology | Randell Franks, | | | 2019 | Visit | | [address] | | | | | | [address] [place], [place] | | | | | | [address] | | | | | | [phone] | | | | | | | | +--------+ + + + + documented as of this encounter Visit Diagnoses Not on filedocumented in this encounter"
--- OUTSIDE RECORDS SUMMARY | ~2019-06-25 | XMS | Encounter Summary ---
Demographics + + + | Address | [address] | | | [place] [address] | + + + | Home Phone [...] [place], [place] | | | | | [address] | | + + + + + | Ellie Vang | ECON | Unknown | | + + + + + Care Team Providers + +------+ + | Care Industrial Health And Safety Professor Name | Role | Phone | [...] | | | [address] | Ryan [address] | | | | | Mailcode: [place] | [place], [place] | | | | | [facility] and | [address] | | | | | [facility] 2 | [phone] | | | | | [place], [place] | | | | | | [address] | | | | | | [phone] | | | +--------+ + + + [...] Rd | | | | | | [place], [place] | | | | | | [address] | | | | | | [phone] | | | | | | | | +--------+ + + + + | 08/19/ | Surgery | Surgery | Chilo, | OPEN VENTRAL HERNIA | | 2019 | | | MD Jorje [address] | REPAIR WITH | | | | | [address] | BIOLOGICAL MESH | | | | | [place], [place] | | | | | | [address] | | | | | | [phone] | | | | | | | | +--------+ + + + + | 09/15/ | Office | Cardiology | Randell Franks, | | | 2019 | Visit | | [address] | | | | | | Ave [place], [place] | | | | | | [address] | | | | | | [phone] | | | | | | | | +--------+ + + + + documented as of this encounter Visit Diagnoses Not on filedocumented in this encounter"
--- OUTSIDE RECORDS SUMMARY | ~2019-06-25 | XMS | Encounter Summary ---
Demographics + + + | Address | [address] | | | [place] [address] | + + + | Home Phone [...] + | Katalina Padilla | ECON | [address] | | | | | [place], [place] | | | | | [address] | | + + + + + | Ellie Vang | ECON | Unknown | | + + + + + Care Team Providers + +------+ + | Care Pleater Name | Role | Phone | + [...] | | | [address] | [place], [place] | | | | | Mailcode: L[address]A | [address] | | | | | [facility] | [phone] | | | | | [address] [place], [place] | | | | | | [address] | | | | | | [phone] | | | +--------+---------+ + + + [...] Dr. Andie Brian Incisional hernia repair 02/2015 [facility]/ Dr. Cantu PHYSICAL EXAMINATION: BP [...] GENERAL SURGERY AT [facility] [address] [facility] Mailcode: [address] [place] [address] documented in this encounter Plan [...] Rd | | | | | | [place], [place] | | | | | | [address] | | | | | | [phone] | | | | | | | | +--------+ + + + + | 08/19/ | Surgery | Surgery | Chilo, | OPEN VENTRAL HERNIA | | 2019 | | | MD [address] | REPAIR WITH | | | | | [address] | BIOLOGICAL MESH | | | | | [place], [place] | | | | | | [address] | | | | | | [phone] | | | | | | | | +--------+ + + + + | 09/15/ | Office | Cardiology | Randell Franks, | | | 2019 | Visit | | MD [address] | | | | | | Ave [place], [place] | | | | | | [address] | | | | | | [phone] | | | | | | | | +--------+ + + + + documented as of this encounter Visit Diagnoses + + | Diagnosis | + + | Incarcerated incisional hernia - Primary Incisional hernia with obstruction | + + documented in this encounter"
--- OUTSIDE RECORDS SUMMARY | ~2019-06-25 | XMS | Encounter Summary ---
Demographics + + + | Address | [address] | | | [place] [address] | + + + | Home Phone [...] + | Author | [facility] | | | and Jeffana | + + + | Organization | [facility] | | | and Jeffana | [...] Providers + +------+ + | Care Hot Head Machine Operator Name | Role | Phone | + +------+ + PCP | Unavailable | + +------+ + Encounter Details +--------+ + + + + | Date | Type | Department | Care Team | Description | +--------+ + + + + | 02/14/ | Orders Only | [facility] UV[facility] | Augustine Fu MD | | | 2015 | | NEPHROLOGY PIPPA | [address] [facility] [address] | | | | | [address] [facility] | [address] [facility] [place] | | | | | [address] [place] | [address] | | | | | [address] | | | | | | [phone] | | | +--------+ + + + [...]
--- OUTSIDE RECORDS SUMMARY | ~2019-06-25 | XMS | Encounter Summary ---
Demographics + + + | Address | [address] | | | [place] [address] | + + + | Home Phone [...] + | Katalina Padilla | ECON | [address] | | | | | [place], [place] | | | | | [address] | | + + + + + | Ellie Vang | ECON | Unknown | | + + + + + Care Team Providers + +------+ + | Care Associate Field Service Engineer Name | Role | Phone [...] | | | | | | | [place] for | | | | | | | [place] and | | | | | | | Healing, | | | | | | | [address] | | | | | | | [place], [place] | | | | | | | [address] | | | | | | | Phone: | | | | | | | [phone] | | | | | | | Fax: | | | | | | | [phone] | +--------+--------+ + + + + Encounter [...] | | [address] | Ave [place], [place] | adult (HCC) (Primary | | | | Mailcode: Center | [address] | Dx); Vitamin D | | | | for Health and | | deficiency disease; | | | | Healing, Building 2 | | Intertriginous | | | | [place], [place] | | candidiasis; | | | | [address] | | Diabetes mellitus | | | [...] Psychological Evaluation: If your referral is at [facility], pain management will call irma riggs in [...] the time. If your referral is at [facility], they will call y ou in the next week to schedule. She will arrange 8. Nephrology Consult: Please call [facility] ([phone]) and have them send you a urine specimen container. You will need to discuss your kidney stone risk with a nephrology provid er prior to proceeding with gastric bypass. If your referral is at [facility], they will call you in the next [...] at the same time: betsy Feldman RN, [facility]- Nurse Practitioner for Bariatric Surgery [facility] | [address] | [place], [place] | [address] | Potential Contraindications to Bariatric Surgery Age [...] other providers does not guarantee that the [facility] Bariatric Surger y program will deem you a surgical candidate. documented in this encounter Progress Notes Shereen Pinto ACNP - 06/16/2013 1:28 PM PSTFormatting of this note might be different fro m the original. BARIATRIC INITIAL VISIT Provider: Shereen Pinto DNP, DANIELLEP, SOLUTIONS ENGINEER Referring Provider: Dr. Fadi Goodrich, [place] [phone] Reason for Requested Consultation: Initial evaluation for bariatric surgery. Elzbieta Cristina is interested in Frandy en y alfredo tomeka bypass. The pt is here With her sister. Following surgery her mother and sister will care for her, she will Stay in [place] after surgery so that she is close by. She lives in [place]. They have few stairs to get into [...] recently gained weight, she met with our processing operator today, she has been making poor [...] none Use of Redux or Phen/fen: no Zoroastrian or cultural reason you would refuse blood [...] as well , hypertension, hyperlipidemia. Denies CHF, [place], ischemic heart disease, DVT/PE, or pulmonary hypertension. [...] the therapy. 8. Nephrology Consult: Please call [facility] ([phone]) and have them send you a urine specimen container. You will need to discuss your kidney stone risk with a nephrology provid er prior to proceeding with gastric bypass. If your referral is at [facility], they will call you in the next week to schedule. You are at increased risk of renal stones after surgery, with your history of stone, we want to check of oxalate in your urine. You will need a referral to a postie If your level is elevated. 9. See [...] soon as possible Shereen Pinto DNP ACNP, SOLUTIONS ENGINEER Nurse Practitioner for Bariatric Surgery [facility] | [address] | [place], [place] | [address] | Potential Contraindications to Bariatric Surgery Age [...] other providers does not guarantee that the [facility] Bariatric Surger y program will deem you [...] Rd | | | | | | [facility] [place] | | | | | | [address] | | | | | | [phone] | | | | | | | | +--------+ + + + + | 08/19/ | Surgery | Surgery | Chilo | OPEN VENTRAL HERNIA | | 2019 | | | MD [address] | REPAIR WITH | | | | | [address] | BIOLOGICAL MESH | | | | | [place], [place] | | | | | | [address] | | | | | | [phone] | | | | | | | | +--------+ + + + + | 09/15/ | Office | Cardiology | Randell Franks, | | | 2019 | Visit | | [address] | | | | | | [place], [place] | | | | | | [address] | | | | | | [phone] | | | | | | | [...] at | | | | | | [email or web address] Test | | | | | | developed and | | | | | | characteristics | | | | | | determined by | | | | | | [facility]. See | | | | | | Compliance Statement B: | | | | | | [email or web address] | | | | | | by [facility],[address] | | | | | | Liliana Martinez, [facility],[place] | | | | | | [address] | | | | | | [phone]. | | | | | | com, [...] at | | | | | | [employer] Test | | | | | | developed and | | | | | | characteristics | | | | | | determined by | | | | | | [facility]. See | | | | | | Compliance Statement B: | | | | | | [employer]/CS | | | | + + + + + + + + | Specimen | + + | Blood - Blood | + + + + + + + | Performing | Address | City/State/Zipcode | Phone Number | | Organization | | | | + + + + + | [facility] | [address] | [place], [place] | | | [facility] | | [address] | | + + + + + [...]
--- OUTSIDE RECORDS SUMMARY | ~2019-06-25 | XMS | Encounter Summary ---
Demographics + + + | Address | [address] | | | [place] [address] | + + + | Home Phone [...] + | Katalina Padilla | ECON | [address] | | | | | [place], [place] | | | | | [address] | | + + + + + | Ellie Vang | ECON | Unknown | | + + + + + Care Team Providers + +------+ + | Care Trimmer Tailer Name | Role | Phone | + [...] | | | [address] | [facility] | | | | | Mailcode: Center | [place], [place] | | | | | [facility] and | [address] | | | | | [facility] 2 | [phone] | | | | | [place], [place] | | | | | | [address] | | | | | | [phone] | | | +--------+ + + + [...] Rd | | | | | | [place], [place] | | | | | | [address] | | | | | | [phone] | | | | | | | | +--------+ + + + + | 08/19/ | Surgery | Surgery | Chilo, | OPEN VENTRAL HERNIA | | 2019 | | | MD Jorje [address] | REPAIR WITH | | | | | [address] | BIOLOGICAL MESH | | | | | [facility] [place] | | | | | | [address] | | | | | | [phone] | | | | | | | | +--------+ + + + + | 09/15/ | Office | Cardiology | Randell Franks, | | | 2019 | Visit | | [address] | | | | | | [place] [facility] [place] | | | | | | [address] | | | | | | [phone] | | | | | | | | +--------+ + + + + documented as of this encounter Visit Diagnoses Not on filedocumented in this encounter"
--- OUTSIDE RECORDS SUMMARY | ~2019-06-25 | XMS | Encounter Summary ---
Demographics + + + | Address | [address] | | | [place] [address] | + + + | Home Phone [...] [place], [place] | | | | | [address] | | + + + + + [...] Mailcode:OP14B | | | | | | [facility] | | | | | | [place], [place] | | | | | | [address] | | | | | | [phone] | | | +--------+ + + + [...] [place] | | | | | | [address] | | | | | | [phone] | | | | | | | | +--------+ + + + + | 08/19/ | Surgery | Surgery | Chilo | OPEN VENTRAL HERNIA | | 2019 | | | MD [address] | REPAIR WITH | | | | | [address] | BIOLOGICAL MESH | | | | | [place], [place] | | | | | | [address] | | | | | | [phone] | | | | | | | | +--------+ + + + + | 09/15/ | Office | Cardiology | Randell Franks, | | | 2019 | Visit | | [address] | | | | | | [place], [place] | | | | | | [address] | | | | | | [phone] | | | | | | | [...] | | | | navigated a #5.5 Belarusian | | | | | | Ozzy [...] | | + +---------+ + + | [facility] DEPARTMENT OF | | | | [...] | | + +---------+ + + | [facility] DEPARTMENT OF | | | | [...] | | + +---------+ + + | [facility] DEPARTMENT OF | | | | [...] | | | | | | a#5.5 Belarusian sheath was | | | | | | secured into place. In | | | | | | a similar fashion, | | | | | | a#7.0 Belarusian sheath was | | | | | [...] | | | | | The #7 Belarusian Brite | | | | | | [...] | | + +---------+ + + | [facility] DEPARTMENT OF | | | | | RADIOLOGY | | | | + +---------+ + + documented in this encounter Visit Diagnoses Not on filedocumented in this encounter
--- OUTSIDE RECORDS SUMMARY | ~2019-06-25 | XMS | Encounter Summary ---
Demographics + + + | Address | [address] | | | [place] [address] | + + + | Home Phone [...] [place], [place] | | | | | [address] | | + + + + + | Ellie Vang | ECON | Unknown | | + + + + + Care Team Providers + +------+ + | Care Ranch Hand Livestock Name | Role | Phone | + [...] | | | | | essential | [address] | [address] | | | | | hypertension | [address], | Ave | | | | | Type II or | [address] | [place], [place] | | | | | unspecified | [place], [place] | [address] | | | | | type | [address] | Phone: | | | | | diabetes | Phone: | [phone] | | | | | mellitus | [phone] | Fax: | | | | | without | Fax: | [phone] | | | | | mention of | [phone] | | | | | | complication [...] 2013 | Visit | Preventive at [facility] | [address] | mellitus (HCC) | | | | [address] | Ave [place], [place] | (Primary Dx) | | | | Mailcode: CH7 | [address] | | | | | [facility] | [phone] | | | | | and Erick, | | | | | | Building [address] | | | | | | [place], [place] | | | | | | [address] | | | | | | [phone] | | | +--------+---------+ + + + [...] Wi ll discuss with Dr. Brian and recruiter specialist her best strategies for meeting weight loss [...] Rd | | | | | | [place], [place] | | | | | | [address] | | | | | | [phone] | | | | | | | | +--------+ + + + + | 08/19/ | Surgery | Surgery | Chilo, | OPEN VENTRAL HERNIA | | 2019 | | | MD [address] | REPAIR WITH | | | | | [address] | BIOLOGICAL MESH | | | | | [place], [place] | | | | | | [address] | | | | | | [phone] | | | | | | | | +--------+ + + + + | 09/15/ | Office | Cardiology | Randell Franks, | | | 2020 | Visit | | [address] | | | | | | [place], [place] | | | | | | [address] | | | | | | [phone] | | | | | | | [...] [facility] | [address] | [place] [address] | | | SERVICES, SPECIAL | PARK [...]
--- OUTSIDE RECORDS SUMMARY | ~2019-06-25 | XMS | Encounter Summary ---
Demographics + + + | Address | [address] | | | [place] [address] | + + + | Home Phone [...] + | Katalina Padilla | ECON | [address] | | | | | [place], [place] | | | | | [address] | | + + + + + | Ellie Vang | ECON | Unknown | | + + + + + Care Team Providers + +------+ + | Care Print Controller Name | Role | Phone | [...] + + | 06/23/ | Hospital | [facility] [address] | Kaleb Wilcox MD | | | 2017 | Encounter | [address] | [address] | | | | | [address]/[address] | [place], [place] | | | | | [place], | [address] | | | | | [place] [address] | [phone] | | | | | [phone] | | | +--------+ + + + [...] hours or on weekends and holiday Hospital Airset Caster toll free [phone]. [phone] and have the GI doctor cotton classer aide paged. The provider who performed your procedure is: Dr. Wilcox Results of your EGD: Dilation performed. You may resume your regular diet. Follow up Appointments with: Follow up with Dr. Pandey in bariatric surgery, thank you for choosing [facility]! Your primary care provider or referring provider [...] | | 0 | | | | [id number] | mouth two times | | | [...] 2:35 PM PST PRE PROCEDURE NOTE: MR# [id number] Subjective: Elzbieta Cristina is a 43 y.o. [...] Rd | | | | | | [facility] [place] | | | | | | [address] | | | | | | [phone] | | | | | | | | +--------+ + + + + | 08/19/ | Surgery | Surgery | Chilo, | OPEN VENTRAL HERNIA | | 2019 | | | MD Jorje [address] | REPAIR WITH | | | | | [address] | BIOLOGICAL MESH | | | | | [place], [place] | | | | | | [address] | | | | | | [phone] | | | | | | | | +--------+ + + + + | 09/15/ | Office | Cardiology | Randell Franks, | | | 2020 | Visit | | [address] | | | | | | [place], [place] | | | | | | [address] | | | | | | [phone] | | | | | | | [...] -----+ | MRN: | [facility] | | [id number] Date: 06/23/2018Patient Name: Elzbieta Curtis #: | ENDOSCOP Y | | [id number] of : 1975CSN: [id number] Type: | | | AmbulatoryRoom: SORProcedure: Upper GI | | | endoscopyIndications: Nausea with vomiting, Status post | | | Fute-zo-VMzscblfux: KALEB WILCOX MD (Doctor), JOSE | | | NASIMA, Computer Technical Support Specialist | | | (Computer Technical Support Specialist)Referring MD: DANIELLE GARCÍAPRequestdonya | | | Provider: [...] | | | The Olympus [id number]-[id number] Gastroscope #[id number] was | | | introduced through the [...] endoscope without resistance. The | | | qqrfi-ye-cdlmlfc limb was characterized by healthy appearing | [...] Initiated On: | | | 06/23/2018 3:58 [place] Letter to: FADI GOODRICH DO | | [...] NKECHI AMES | [address] | [place], [place] | | | [address] [facility] | [address] | [address] | | | TESTS | | | [...] | | | | | | Until [facility] 06/24/18 at 0027, | | | [...] 06/23/18 at 1532, | | | Until [facility] 06/24/18 at 0027, | | | [...]
--- OUTSIDE RECORDS SUMMARY | ~2019-06-25 | XMS | Encounter Summary ---
Demographics + + + | Address | [address] | | | [place] [address] | + + + | Home Phone [...] [place], [place] | | | | | [address] | | + + + + + [...] Morbid | | 2018 | Visit | [place] [address] | [address] | obesity ([facility]), BMI | | | | [address] | [address] | 88 (Primary Dx); | | | | Mailcode: [place] | [place], [place] | Type 2 diabetes | | | | [facility] [employer] and | [address] | mellitus without | | | | Healing, Building [address] | | complication, with | | | | [place], [place] | | long-term current | | | | [address] | | use of insulin | | | | [phone] | | ([facility]); S/P gastric | | | | | [...] Follow-Up Patient referred by: [place] [address] Documented time of visit: 1:30 to 2:00 (30 minutes ekgh-zu-kzfg with patient) Surgery: Gastric Bypass Date of [...] Allergic rhinitis Anemia Anxiety Bipolar disorder ([facility]) Chronic wound infection of abdomen from [...] multivitamin & mineral (with iron) supplement, 2/day -6384-7064 mg calcium citrate with vitamin D/day (take [...] in [address],[place] Pager# [phone] Phone: [phone] documented in this en counter Plan of [...] [place] | | | | | | [address] | | | | | | [phone] | | | | | | | | +--------+ + + + + | 08/19/ | Surgery | Surgery | Chilo | OPEN VENTRAL HERNIA | | 2019 | | | MD [address] | REPAIR WITH | | | | | [address] | BIOLOGICAL MESH | | | | | [place] | | | | | | [address] | | | | | | [phone] | | | | | | | | +--------+ + + + + | 09/15/ | Office | Cardiology | Randell Franks, | | | 2020 | Visit | | [address] | | | | | | [place], [place] | | | | | | [address] | | | | | | [phone] | | | | | | | | +--------+ + + + + documented as of this encounter Procedures + +--------+ + + + | Procedure Name | Priori | Date/Time | Associated Diagnosis | Comments | | | ty | | | | + +--------+ + + + | NE MNT RE-ASSESSMNT | Routin | 03/10/2018 | [...] (HCC) | | | | | | S/P [...]
--- OUTSIDE RECORDS SUMMARY | ~2019-06-25 | XMS | Encounter Summary ---
Demographics + + + | Address | [address] | | | [place] [address] | + + + | Home Phone [...] [place], [place] | | | | | [address] | | + + + + + | Ellie Vang | ECON | Unknown | | + + + + + Care Team Providers + +------+ + | Care Hand Shoes Sewer Name | Role | Phone | [...] [address] | | | | | | [facility] | [facility] | | | | | | Brock [facility] | [address] Mailcode: | | | | | | [facility] | [address] | | | | | | [place], [place] | Phsyicians | | | | | | [address] | [address] | | | | | | Phone: | [place], [place] | | | | | | [phone] | [address] | | | | | | | Phone: | | | | | | | [phone] | | | | | | | Fax: | | | | | | | [phone] | +--------+--------+ + + + + Encounter [...] [facility] [address] | [address] [address] [place], | | | | | [address] | [place] [address] | | | | | Mailcode: [address]A | [phone] | | | | | [facility] | | | | | | [address] [place], [place] | | | | | | [address] | | | | | | [phone] | | | +--------+---------+ + + + [...] Axel Gonzales MD - 03/06/2014 1:15 PM [facility] Attending: Tam [...] a HIDA scan to be done in [place] to verify that she does not have [...] Surgery Resident Department of General Surgery Pager: [phone] I saw and evaluated the patient. I agree with the findings and the plan of care as dequan han in the resident s note. PRADIP STARR MD [facility] GENERAL SURGERY AT [facility] [address] [facility] Mailcode: [address] [place] [address] documented in this encoun ter [...] Rd | | | | | | [place], [place] | | | | | | [address] | | | | | | [phone] | | | | | | | | +--------+ + + + + | 08/19/ | Surgery | Surgery | Chilo, | OPEN VENTRAL HERNIA | | 2019 | | | MD [address] | REPAIR WITH | | | | | [address] | BIOLOGICAL MESH | | | | | [place], [place] | | | | | | [address] | | | | | | [phone] | | | | | | | | +--------+ + + + + | 09/15/ | Office | Cardiology | Randell Franks, | | | 2019 | Visit | | [address] | | | | | | [address] [place], [place] | | | | | | [address] | | | | | | [phone] | | | | | | | [...] | + + + + + | [facility] | [address] | [place] [address] | | | SERVICES, CORE | [address] | | | + + + + + documented in this encounter Visit Diagnoses + + | Diagnosis | + + | Cholecystitis - Primary Cholecystitis, unspecified | + + documented in this encounter
--- OUTSIDE RECORDS SUMMARY | ~2019-06-25 | XMS | Encounter Summary ---
Demographics + + + | Address | [address] | | | [place] [address] | + + + | Home Phone [...] Author | [facility] | | | and Jeffana | + + + | Organization | [facility] | | | and Jeffana [...] Providers + +------+ + | Care Job Analyst Name | Role | Phone | + +------+ + | Jorje Hill | PCP | | + +------+ + Encounter Details +--------+ + + + + | Date | Type | Department | Care Team | Description | +--------+ + + + + | 06/20/ | Hospital | [facility] | Dharmesh Melchor | Canceled (OTHER) | | 2019 | Encounter | CENTER IR INTRA OP | MD [address] | | | | | [address] | [address] | | | | | [place], [place] | [place] [address] | | | | | [address] | [phone] | | | | | [phone] | | | | | | | Christian Dawson MD | | | | | | [address] | | | | | | [place], [place] | | | | | | [address] | | | | | | | [...] + + | Performing | Address | City/State/[facility] | Phone Number | | Organization | | | | + +---------+ + + | [facility] | | | | + +---------+ + + documented in this encounter Visit Diagnoses Not on filedocumented in this encounter"
--- OUTSIDE RECORDS SUMMARY | ~2019-06-25 | XMS | Encounter Summary ---
Demographics + + + | Address | [address] | | | [place] [address] | + + + | Home Phone [...] [place], [place] | | | | | [address] | | + + + + + | Ellie Vang | ECON | Unknown | | + + + + + Care Team Providers + +------+ + | Care Needle Grader Name | Role | Phone | + +------+ + | Kenyatta Cardenas MD | PCP | | + +------+ + Encounter Details +--------+ + + + + | Date | Type | Department | Care Team | Description | +--------+ + + + + | 05/28/ | Phillip | [facility] DUMAS at [facility] | Lab, Gi Procedure | | | 2018 | on | [address] | | | | | | Brenton Flannery Mailcode: | | | | | | [facility] | | | | | | Health and Healing, | | | | | | [facility] | | | | | | [place], [place] | | | | | | [address] | | | | | | [phone] | | | +--------+ + + + [...] Rd | | | | | | [facility] [place] | | | | | | [address] | | | | | | [phone] | | | | | | | | +--------+ + + + + | 08/19/ | Surgery | Surgery | Chilo, | OPEN VENTRAL HERNIA | | 2019 | | | MD [address] | REPAIR WITH | | | | | [address] | BIOLOGICAL MESH | | | | | [place], [place] | | | | | | [address] | | | | | | [phone] | | | | | | | | +--------+ + + + + | 09/15/ | Office | Cardiology | Randell Franks, | | | 2020 | Visit | | [address] | | | | | | [place], [place] | | | | | | [address] | | | | | | [phone] | | | | | | | | +--------+ + + + + documented as of this encounter Visit Diagnoses Not on filedocumented in this encounter"
--- OUTSIDE RECORDS SUMMARY | ~2019-06-25 | XMS | Encounter Summary ---
Demographics + + + | Address | [address] | | | [place] [address] | + + + | Home Phone [...] [place], [place] | | | | | [address] | | + + + + + | Ellie Vang | ECON | Unknown | | + + + + + Care Team Providers + +------+ + | Care Aboriginal Education Teacher Name | Role | Phone [...] the | | | | | | [facility] [address] [facility] | | | | | | [facility] | | | | | | [place], [place] | | | | | | [address] | | | +--------+ + + + [...] Rd | | | | | | [place], [place] | | | | | | [address] | | | | | | [phone] | | | | | | | | +--------+ + + + + | 08/19/ | Surgery | Surgery | Chilo, | OPEN VENTRAL HERNIA | | 2019 | | | MD [address] | REPAIR WITH | | | | | [address] | BIOLOGICAL MESH | | | | | [facility] [place] | | | | | | [address] | | | | | | [phone] | | | | | | | | +--------+ + + + + | 09/15/ | Office | Cardiology | Randell Franks, | | | 2019 | Visit | | [address] | | | | | | [address] [place], [place] | | | | | | [address] | | | | | | [phone] | | | | | | | | +--------+ + + + + documented as of this encounter Visit Diagnoses Not on filedocumented in this encounter"
--- OUTSIDE RECORDS SUMMARY | ~2019-06-25 | XMS | Encounter Summary ---
Demographics + + + | Address | [address] | | | [place] [address] | + + + | Home Phone [...] [place], [place] | | | | | [address] | | + + + + + | Ellie Vang | ECON | Unknown | | + + + + + Care Team Providers + +------+ + | Care Mechanical Handyman Name | Role | Phone | + [...] | | [address] | [place], [place] | | | | | Mailcode: [place] | [address] | | | | | for Health and | [phone] | | | | | [facility] | | | | | | [place], [place] | | | | | | [address] | | | | | | [phone] | | | +--------+ + + + [...] [place] | | | | | | [address] | | | | | | [phone] | | | | | | | | +--------+ + + + + | 08/19/ | Surgery | Surgery | Chilo, | OPEN VENTRAL HERNIA | | 2019 | | | MD [address] | REPAIR WITH | | | | | [address] | BIOLOGICAL MESH | | | | | [place] | | | | | | [address] | | | | | | [phone] | | | | | | | | +--------+ + + + + | 09/15/ | Office | Cardiology | Randell Franks, | | | 2019 | Visit | | MD [address] | | | | | | [place], [place] | | | | | | [address] | | | | | | [phone] | | | | | | | | +--------+ + + + + documented as of this encounter Visit Diagnoses Not on filedocumented in this encounter"
--- OUTSIDE RECORDS SUMMARY | ~2019-06-25 | XMS | Encounter Summary ---
Demographics + + + | Address | [address] | | | [place] [address] | + + + | Home Phone [...] + | Katalina Padilla | ECON | [address] | | | | | [place], [place] | | | | | [address] | | + + + + + | Ellie Vang | ECON | Unknown | | + + + + + Care Team Providers + +------+ + | Care Tool Design Draftsperson Name | Role | Phone | + +------+ + | Kenyatta Cardenas MD | PCP | | + +------+ + Encounter Details +--------+ + + + + | Date | Type | Department | Care Team | Description | +--------+ + + + + | 03/18/ | Transcribe | [facility] | Transcribe | | | 2019 | Orders | [address] | Encounter, Provider, | | | | | [address] [place] Mailcode: | [address] | | | | | [facility] | [place] [address] | | | | | Health and Healing, | | | | | | Building [address] | | | | | | [place], [place] | | | | | | [address] | | | | | | [phone] | | | +--------+ + + + [...] [place] | | | | | | [address] | | | | | | [phone] | | | | | | | | +--------+ + + + + | 08/19/ | Surgery | Surgery | Chilo, | OPEN VENTRAL HERNIA | | 2019 | | | MD [address] | REPAIR WITH | | | | | [address] | BIOLOGICAL MESH | | | | | [place], [place] | | | | | | [address] | | | | | | [phone] | | | | | | | | +--------+ + + + + | 09/15/ | Office | Cardiology | Randell Franks, | | | 2019 | Visit | | [address] | | | | | | [place], [place] | | | | | | [address] | | | | | | [phone] | | | | | | | | +--------+ + + + + documented as of this encounter Results EGBrynn (04/07/2019 10:53 AM PDT) + + | Specimen | + + | | + + + + + | Narrative | Performed At | + + + | MRN: | [facility] | | [id number] Date: 04/07/2019Patient Name: Elzbieta Curtis #: | ENDOSCOPY | | [id number] of : 1975CSN: [id number] Type: | | | AmbulatoryRoom: Endo 5Procedure: Upper GI | | | endoscopyIndications: Generalized abdominal pain, Nausea | | | with vomitingProviders: TAL LUND MD | | | (Doctor), BERNARDO BERNARD RN (Nurse), | | | EREN SLATER (It Infrastructure Specialist)Referring MD: SYLVIA Kilpatrick | | | KENNY [...] | | | The [employer] [id number] Endoscope #[id number] | | | was introduced through the [...]
--- OUTSIDE RECORDS SUMMARY | ~2019-06-25 | XMS | Encounter Summary ---
Demographics + + + | Address | [address] | | | [place] [address] | + + + | Home Phone [...] + | Katalina Padilla | ECON | [address] | | | | | [place], [place] | | | | | [address] | | + + + + + | Ellie Vang | ECON | Unknown | | + + + + + Care Team Providers + +------+ + | Care Massage Therapy Instructor Name | Role | Phone | [...] | | | | | bypass | [place], | Mailcode: | | | | | Nausea and | [place] | [address] [facility] | | | | | vomiting, | [address] | Hospital | | | | | intractabili | Phone: | [place], [place] | | | | | ty of | | [address] | | | | | vomiting not | Fax: | Phone: | | | | | specified, | [phone] | [phone] | | | | | unspecified | | Fax: | | | | | vomiting | | [phone] | | | | | type | [...] | | | | | bypass | [place], | Mailcode: | | | | | Nausea and | [place] | [address] [facility] | | | | | vomiting, | [address] | Hospital | | | | | intractabili | Phone: | [place], [place] | | | | | ty of | | [address] | | | | | vomiting not | Fax: | Phone: | | | | | specified, | [phone] | [phone] | | | | | unspecified | | Fax: | | | | | vomiting | | [phone] | | | | | type | [...] | 2019 | Encounter | Services at [facility] | [facility] [address] | | | | | [address] | [place], [place] | | | | | Lesly Gutiérrez Mailcode: | [address] | | | | | [address] [facility] | [phone] | | | | | [place], [place] | | | | | | [address] | | | | | | [phone] | | | +--------+ + + + [...] | | 0 | | | | [id number] | mouth two times | | | [...] | 2019 | Encounter | | MD [address] | | | | | | [address] | | | | | | [place] | | | | | | [address] | | | | | | [phone] | | | | | | | | +--------+ + + + + | 08/19/ | Surgery | Surgery | Chilo | OPEN VENTRAL HERNIA | | 2019 | | | MD [address] | REPAIR WITH | | | | | [address] | BIOLOGICAL MESH | | | | | [place], [place] | | | | | | [address] | | | | | | [phone] | | | | | | | | +--------+ + + + + | 09/15/ | Office | Cardiology | Randell Franks, | | | 2020 | Visit | | [address] | | | | | | [place], [place] | | | | | | [address] | | | | | | [phone] | | | | | | | [...]
--- OUTSIDE RECORDS SUMMARY | ~2019-06-25 | XMS | Encounter Summary ---
Demographics + + + | Address | [address] | | | [place] [address] | + + + | Home Phone [...] + | Katalina Padilla | ECON | [address] | | | | | [place], [place] | | | | | [address] | | + + + + + | Ellie Vang | ECON | Unknown | | + + + + + Care Team Providers + +------+ + | Care Manager Bridge Name | Role | Phone | + +------+ + | Fadi Goodrich DO | PCP | | + +------+ + Encounter Details +--------+ + + + + | Date | Type | Department | Care Team | Description | +--------+ + + + + | 12/12/ | Emergency | [facility] Emergency | | | | 2014 - | | Department [address] | | | | | | [address] | | | | 05/20/ | | [facility] | | | | 2014 | | [place], [place] | | | | | | [address] | | | | | | [phone] | | | +--------+ + + + [...] Rd | | | | | | [place], [place] | | | | | | [address] | | | | | | [phone] | | | | | | | | +--------+ + + + + | 08/19/ | Surgery | Surgery | Chilo | OPEN VENTRAL HERNIA | | 2019 | | | MD Jor[address] | REPAIR WITH | | | | | [address] | BIOLOGICAL MESH | | | | | [place], [place] | | | | | | [address] | | | | | | [phone] | | | | | | | | +--------+ + + + + | 09/15/ | Office | Cardiology | Randell Franks, | | | 2019 | Visit | | [address] | | | | | | [place] | | | | | | [address] | | | | | | [phone] | | | | | | | | +--------+ + + + + documented as of this encounter Visit Diagnoses Not on filedocumented in this encounter"
--- OUTSIDE RECORDS SUMMARY | ~2019-06-25 | XMS | Encounter Summary ---
Demographics + + + | Address | [address] | | | [place] [address] | + + + | Home Phone [...] [place], [place] | | | | | [address] | | + + + + + | Ellie Vang | ECON | Unknown | | + + + + + Care Team Providers + +------+ + | Care Cribber Name | Role | Phone | + +------+ + | Fadi Goodrich DO | PCP | | + +------+ + Reason for Visit + + + | Reason | Comments | + + + | Medical Records | Letter from case loader operator. | | Review | | + + + Encounter Details +--------+ + + + + | Date | Type | Department | Care Team | Description | +--------+ + + + + | 11/08/ | Abstract | Digestive Health | Shereen Georges, | Medical Records | | 2015 | | Center at [facility] [address] | [facility] [address] | Review (Letter from | | | | [address] | [place], [place] | case loader operator. ) | | | | Mailcode: [place] | [address] | | | | | [facility] and | [phone] | | | | | [address] [address] | | | | | | [place], [place] | | | | | | [address] | | | | | | [phone] | | | +--------+ + + + [...] Rd | | | | | | [place] | | | | | | [address] | | | | | | [phone] | | | | | | | | +--------+ + + + + | 08/19/ | Surgery | Surgery | Chilo, | OPEN VENTRAL HERNIA | | 2020 | | | MD [address] | REPAIR WITH | | | | | [address] | BIOLOGICAL MESH | | | | | [place] | | | | | | [address] | | | | | | [phone] | | | | | | | | +--------+ + + + + | 09/15/ | Office | Cardiology | Randell Franks, | | | 2019 | Visit | | [address] | | | | | | [place], [place] | | | | | | [address] | | | | | | [phone] | | | | | | | | +--------+ + + + + documented as of this encounter Visit Diagnoses Not on filedocumented in this encounter"
--- OUTSIDE RECORDS SUMMARY | ~2019-06-25 | XMS | Clinical Summary ---
Demographics + + + | Address | [address] | | | [place] [address] | + + + | Home Phone [...] Author + + + | Author | [facility] | + + + | Organization | [facility] | + + [...] [place], [place] | | | | | [address] | | + + + + + | Ellie Vang | ECON | Unknown | | + + + + + Care Team Providers + +------+ + | Care Fruit Farmworker Name | Role | Phone | + +------+ + | Kenyatta Hylton MD | PCP | | + +------+ + Source Comments NKECHI is fully live on both EpicCare Ambulatory and EpicCare InPatient.[facility] Allergies + + + + [...] 0 | | | Activ | | CRB&OPN-X5-VVL02-GEN | mouth two times | | | [...] | + + + | History of Fradny-en-Y gastric bypass | 03/10/2018 | + + [...] [place] | | | | | | [address] | | | | | | [phone] | | | | | | | | +--------+ + + + + | 08/19/ | Surgery | Surgery | Chilo | OPEN VENTRAL HERNIA | | 2019 | | | MD Demond Recinos | REPAIR WITH | | | | | [address] | BIOLOGICAL MESH | | | | | [place], [place] | | | | | | [address] | | | | | | [phone] | | | | | | | | +--------+ + + + + | 09/15/ | Office | Cardiology | TinyAly brown, | | | 2019 | Visit | | [address] | | | | | | [place], [place] | | | | | | [address] | | | | | | [phone] | | | | | | | [...] - | | | | | | /[id number] | | [id number]: Qty: 1 on | | | | | | 525 | | 03/01/2018 by Ion Pandey | | | | | | | | MD Vinicius at [facility] REV | | | | | | [...] - | | | | | | /[id number] | | [id number]: Qty: 1 on | | | | | | 173 | | 03/01/2018 by Ion Pandey | | | | | | | | MD Vinicius at [facility] | | | | [...] - MAR[place] | [address] | [place], [place] | | | [place] POINT OF CARE | [address] | [address] | | | TESTS | | | [...] [facility] | [address] | [place] [address] | | | SERVICES, CORE | PARK [...] | | | LABORATORY | | | [place] | | | SERVICES, | | | [...] MDRD equation recommended by the National | [facility] | | Kidney Disease Education Program. [...] | [facility] | [address] [facility] [facility] | [place] [address] | | | SERVICES, [facility] | [address] [...] [facility] | [address] | [place] [address] | | | SERVICES, CORE | PARK [...] + + + + + | [facility] | [address] | [place] [address] | | | SERVICES, CORE | [address] [...] 5-6 weeks | | | 850 - 74875 6-7 weeks | | | 4000 - 125460 7-12 weeks | | | 66551 - 392066 12-16 weeks | | | 33455 - 989840 16-29 | | | weeks 1400 - 63391 | | | 29-41 weeks 940 - 77986 | | | This test has not been approved for use as a tumor marker in | | | males or females. | | + + + + + + + + | Performing | Address | City/State/Zipcode | Phone Number | | Organization | | | | + + + + + | [facility] | [address] | [place] [address] | | | SERVICES, CORE | [address] | | | + + + + + ED INFORMATION EXCHANGE (05/13/2019 5:14 PM PDT) + + | Specimen | + + | | + + + + + | Narrative | Performed At | + + + | [facility]LECT[facility]?NOTIFICATION?05/13/2019 17:13?DYLAN ROMERO?MRN: | [facility] | | [id number] Criteria Met Has Guidelines PDMP Security | MEDICAL | | and Safety No recent Security Events currently on file ED Care | [employer] | | Guidelines from [employer] [facility] [place] Last Updated: 12/06/18 9:53 AM | | | Care Coordination: Receiving mental health services with | | | [employer].? Please contact [employer] for mental health concerns.? | | | Sarah/Toni Centeno: [phone]? Kishan: [phone].? | | | These are guidelines and the provider should exercise clinical | | | judgment when providing care. Care History Medical/Surgical | | | 05/11/19 12:00 AM [facility] Patient is | | | currently established with [facility]. If patient is seen in | | | the ED during business hours. Please contact CHWs at [facility] | | | [facility]. Care Recommendation: This patient has had [...] 08/23/18 12:00 AM | | | [facility] PATIENT HAS A PCP APT TO ESTABLISH [...] SUDOGEST 30 MG TABLET 5 BERNARDO VERONICA, SLEEP LAB TECHNOLOGIST 0 | | | 2019-03-30 SUDOGEST 30 MG TABLET 30 BERNARDO MARTIN, SLEEP LAB TECHNOLOGIST 0 | | | 2019-03-20 ALPRAZOLAM 1 MG TABLET 60 WISNTON JEFFAS 4 0 2019-03-14 | | | BELBUCA 600 MCG FILM 58 KECIA ZAPINE PA 0 2019 PHENTERMINE | | | [...] 2019-01-02 PHENTERMINE 37.5 MG TABLET 30 ALY ONRRIS MD 4 0 | | | 2018-12-24 [...] (12 mo.) Facility Visits | | | [facility] 1 [facility] 1 | | | [facility] 2 Total 4 Note: Visits indicate total | | | known visits. Recent Emergency Department Visit Summary Date | | | Facility City State Type Diagnoses or Chief Complaint May 13, 2019 | | | [facility] [place] Emergency | | | 10,800. A303 May 10, 2019 [facility] 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 [place] Emergency RIGHT LEG PAIN DUE TO FALL | | | Strain of unsp musc/tend at lower leg level, right leg, init Jul | | | 2018 [facility]. [place] Emergency Other nursing home | | | (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 Upper abdominal pain, unspecified | | | Bariatric surgery status Allergy status to oth drug/meds/biol | | | subst status Noninfective gastroenteritis and colitis, | | | unspecified Obesity, unspecified Anxiety disorder, | | | unspecified terminal make up operator (current) use of aspirin Allergy | | | status to penicillin Personal history of pulmonary embolism | | | Recent Inpatient Visit Summary No recorded inpatient visits. | | | Care Team Provider Specialty Phone Fax Service Dates Treva, | | | Rob Car Barn Laborer/Role Player Mar 27, 2018 - | | | Current Bernard Hylton MD Internal Medicine: Pulmonary Disease | | | Aug 23, 2018 - Current [employer] This patient has | | | registered at the [facility] | | | Department For more information visit: | | | [email or web address] | | | [email or web address] PLEASE NOTE: 1. Any care recommendations [...] or completeness of information provided. ? 2019 [employer] | | | [employer]. - www.[employer] Commun[employer] | | + + + + + | Procedure Note | + + | Service Account, Rtf Results Inbound - 05/13/2019 5:16 PM PDT Formatting of this | | note might be different from the original.COLLECTIVE?NOTIFICATION?05/13/2019 | | 17:13?DYLAN ROMERO? [facility] Has Guidelines PDMPSecurity and | | SafetyNo recent Security Events currently on fileED Care Guidelines from [employer] - | | [place] Updated: 12/06/18 9:53 AM Care Coordination:Receiving mental health | | services with [employer].? Please contact [employer] for mental health concerns.? | | Sarah/Toni Centeno: [phone]? Kishan: [phone].?These are guidelines | | and the provider should exercise clinical judgment when providing care.Care | | HistoryMedical/Okpmpadl97/16/19 12:00 AM [facility] Patient is currently | | established with [facility]. If patient is seen in the ED during business hours. | | Please contact CHWs at [facility].Care Recommendation:This patient has had 5 or | [...] judgment when providing care.08/23/18 12:00 AM [facility] | [facility] PATIENT HAS A PCP [...] SUDOGEST 30 MG TABLET 5 BERNARDO MARTIN, SLEEP LAB TECHNOLOGIST 0 2019-03-30 SUDOGEST 30 MG TABLET 30 | | BERNARDO MARTIN, SLEEP LAB TECHNOLOGIST 0 2019-03-20 ALPRAZOLAM 1 MG TABLET 60 [...] MG TABLET 30 ALY | | MD TINY 4 0 2018-12-24 [...] E.D. Visit Count (12 mo.)Facility Visits [facility] | | [address] 1 [facility] 2 Total 4 Note: | | Visits indicate total known visits. Recent Emergency Department Visit SummaryDate | | Facility City State Type Diagnoses or Chief Complaint May 13, 2019 [facility] and | | [facility] [place] Emergency 10,800. A303 May 10, 2019 [facility] | | [place] Emergency Nausea with vomiting, unspecified Solitary pulmonary nodule | | Anxiety disorder, unspecified Ventral hernia without obstruction or gangrene | | Unspecified abdominal pain Diarrhea, unspecified Allergy status to oth | | drug/meds/biol subst status Prsnl hx of TIA (TIA), and cereb infrc w/o resid deficits | | Other terminal gauger supervisor (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 Allergy status to penicillin December 03, 2018 | | [facility] [place] Emergency RIGHT LEG PAIN DUE TO FALL Strain of | | unsp musc/tend at lower leg level, right leg, init Aug 22, 2018 [facility] | | [place] Emergency Other terminal gauger supervisor (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 Upper abdominal pain, | | unspecified Bariatric surgery status Allergy status to oth drug/meds/biol subst | | status Noninfective gastroenteritis and colitis, unspecified Obesity, unspecified | | Anxiety disorder, unspecified FPC (current) use of aspirin Allergy status | | to penicillin Personal history of pulmonary embolism Recent Inpatient Visit | | SummaryNo recorded inpatient visits. Care TeamProvider Specialty Phone Fax Service Dates | | Rob Tilley Car Barn Laborer/Role Player Mar 27, 2018 - Current | | Bernard Hylton MD Internal Medicine: Pulmonary Disease Aug 23, 2018 - Current | | [facility] patient has registered at the [facility] | | Emergency Department For more information visit: | | [email or web address] [email or web address] PLEASE | | NOTE: 1. Any care [...] completeness of information | | provided.? 2019 [employer]. - www.[employer] | |[facility] 3 | |Benzos 4 | |Opioids 7 | |Long Acting Opioids 0 | | | | | | | |E.D. Visit Count (12 mo.) | |Facility Visits | |[facility] 1 | |[facility] 1 | |[facility] 2 | |Total 4 | |Note: Visits indicate total known visits. | | | |Recent Emergency Department Visit Summary | |Date Facility City State Type Diagnoses or Chief Complaint | |May 13, 2019 [facility] [place] Emergency | | 10,800. A303 | | | |May 10, 2019 [facility] [place] Emergency | | Nausea with [...] penicillin | | | |December 03, 2018 [facility] [place] Emergency | | RIGHT LEG PAIN DUE TO FALL | | Strain of unsp musc/tend at lower leg level, right leg, init | | | |Aug 22, [address] [facility] [place] [place] Emergency | | Other terminal gauger supervisor (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 | | Upper abdominal pain, unspecified | | Bariatric surgery status | | Allergy status to oth drug/meds/biol subst status | | Noninfective gastroenteritis and colitis, unspecified | | Obesity, unspecified | | Anxiety disorder, unspecified | | FPC (current) use of aspirin | | Allergy status to penicillin | | Personal history of pulmonary embolism | | | | | | | |Recent Inpatient Visit Summary | |No recorded inpatient visits. | | | |Care Team | |Provider Specialty Phone Fax Service Dates | |Rob Tilley Car Barn Laborer/Role Player Mar 27, 2018 - Current | |Bernard Hylton MD Internal Medicine: Pulmonary Disease Aug 23, 2018 - Current | | | |[facility] | |This patient has registered at the [facility] Emergency Departmen t | |For more information visit: [email or web address] [employer] [email or web address]/[email or web address] | |PLEASE NOTE: | | 1. Any care recommendations and other clinical information are provided as guidelines or for historical purposes only, and providers should exercise their own clinical judgment whe n providing care. | | 2. You may only use this information for purposes of treatment, payment or health care o perations activities, and subject to the limitations of applicable [facility] Policies. | | 3. You should consult directly with the organization that provided a care guideline or o ther clinical history with any questions about additional information or accuracy or complet eness of information provided. | | | |? 2019 [employer]. - www.Common [employer] Communities | + + + + + + + | Performing | Address | City/State/Zipcode | Phone Number | | Organization | | | | + + + + + | [facility] | [address], | [place], [place] | [phone] | | TECHNOLOGIES | [address] | [address] | | + + + + + MERID (04/07/2019 10:53 AM PDT) + + | Specimen | + + | | + + + + + | Narrative | Performed At | + + + | MRN: | [facility] | | [id number] Date: 04/07/2019Patient Name: Dylan Curtis #: | ENDOSCOPY | | [id number] of : 1975CSN: [id number] Type: | | | AmbulatoryRoom: Endo 5Procedure: Upper GI | | | endoscopyIndications: Generalized abdominal pain, Nausea | | | with vomitingProviders: TAL MCNEIL MD | | | (Doctor), BERNARDO BERNARD RN (Nurse), | | | EREN SLATER (Baseball Umpire For [employer])Referring MD: KEREN Kilpatrick | | | RASTA ALLENAdvanced Care Hospital [facility] Southern [facility] Mexicodonya Provider: Medicines: | | | Midazolam 8 [...] | | | The Olympus [id number] Endoscope #[id number] | | | was introduced through the [...] | | | + +--------+ +--------+-------+---------+--------+ | TANK SYSTEMS MAINTAINER MEDICAID | TANK SYSTEMS MAINTAINER | [id number] | | | | Medica [...] [id number] | | | 3 (Home) | [id number] | + +--------+ +--------+ + + Advance [...]
--- OUTSIDE RECORDS SUMMARY | ~2019-06-25 | XMS | Encounter Summary ---
Demographics + + + | Address | [address] | | | [place] [address] | + + + | Home Phone [...] [place], [place] | | | | | [address] | | + + + + + | Ellie Vang | ECON | Unknown | | + + + + + Care Team Providers + +------+ + | Care Recreation Teacher Name | Role | Phone | [...] | | | | | | Pav[facility] [address] | | | | | | [address] | | | | | | Physician's | | | | | | Pavilion | | | | | | [facility] | | | | | | [place], [place] | | | | | | [address] | | | | | | [phone] | | | +--------+ + + + [...] | 2020 | Encounter | | MD oJrje [address] | | | | | | [address] | | | | | | [place], [place] | | | | | | [address] | | | | | | [phone] | | | | | | | | +--------+ + + + + | 08/19/ | Surgery | Surgery | Chilo, | OPEN VENTRAL HERNIA | | 2019 | | | MD Jorje [address] | REPAIR WITH | | | | | [address] | BIOLOGICAL MESH | | | | | [place] | | | | | | [address] | | | | | | [phone] | | | | | | | | +--------+ + + + + | 09/15/ | Office | Cardiology | Randell Franks, | | | 2019 | Visit | | [address] | | | | | | [place], [place] | | | | | | [address] | | | | | | [phone] | | | | | | | | +--------+ + + + + documented as of this encounter Visit Diagnoses Not on filedocumented in this encounter"
--- OUTSIDE RECORDS SUMMARY | ~2019-06-25 | XMS | Encounter Summary ---
Demographics + + + | Address | [address] | | | [place] [address] | + + + | Home Phone [...] [place], [place] | | | | | [address] | | + + + + + | Ellie Vang | ECON | Unknown | | + + + + + Care Team Providers + +------+ + | Care Patient Admitting Clerk Name | Role | Phone | [...] | 2012 | | Center at [facility] [address] | MD [address] | | | | | [address] | [facility] | | | | | Mailcode: Center | [place], [place] | | | | | [facility] Health and | [address] | | | | | [facility] 2 | [phone] | | | | | [place], [place] | | | | | | [address] | | | | | | [phone] | | | +--------+ + + + [...] Rd | | | | | | [place], [place] | | | | | | [address] | | | | | | [phone] | | | | | | | | +--------+ + + + + | 08/19/ | Surgery | Surgery | Chilo, | OPEN VENTRAL HERNIA | | 2019 | | | MD Jorje [address] | REPAIR WITH | | | | | [address] | BIOLOGICAL MESH | | | | | [facility] [place] | | | | | | [address] | | | | | | [phone] | | | | | | | | +--------+ + + + + | 09/15/ | Office | Cardiology | Randell Franks, | | | 2019 | Visit | | [address] | | | | | | [place] [facility] [place] | | | | | | [address] | | | | | | [phone] | | | | | | | | +--------+ + + + + documented as of this encounter Visit Diagnoses Not on filedocumented in this encounter"
--- OUTSIDE RECORDS SUMMARY | ~2019-06-25 | XMS | Encounter Summary ---
Demographics + + + | Address | [address] | | | [place] [address] | + + + | Home Phone [...] [place], [place] | | | | | [address] | | + + + + + | Ellie Vang | ECON | Unknown | | + + + + + Care Team Providers + +------+ + | Care Welder/Installer Name | Role | Phone | + +------+ + | Fadi Goodrich DO | PCP | | + +------+ + Encounter Details +--------+ + + + + | Date | Type | Department | Care Team | Description | +--------+ + + + + | 10/19/ | Abstract | Digestive Health | Clinic, Surgery | | | 2017 | | [place] at [facility] [address] | | | | | | [address] | | | | | | Mailcode: [place] | | | | | | [facility] Health and | | | | | | [facility] 2 | | | | | | [place], [place] | | | | | | [address] | | | | | | [phone] | | | +--------+ + + + [...] [place] | | | | | | [address] | | | | | | [phone] | | | | | | | | +--------+ + + + + | 08/19/ | Surgery | Surgery | Chilo, | OPEN VENTRAL HERNIA | | 2019 | | | MD Jorje [address] | REPAIR WITH | | | | | [address] | BIOLOGICAL MESH | | | | | [place], [place] | | | | | | [address] | | | | | | [phone] | | | | | | | | +--------+ + + + + | 09/15/ | Office | Cardiology | Randell Franks, | | | 2019 | Visit | | [address] | | | | | | [address] [place], [place] | | | | | | [address] | | | | | | [phone] | | | | | | | | +--------+ + + + + documented as of this encounter Visit Diagnoses Not on filedocumented in this encounter"
--- OUTSIDE RECORDS SUMMARY | ~2019-06-25 | XMS | Encounter Summary ---
Demographics + + + | Address | [address] | | | [place] [address] | + + + | Home Phone [...] | Author | [facility] | | | and Jeffana | + + + | Organization | [facility] [...] Providers + +------+ + | Care Wrapper Hand Name | Role | Phone | [...] | | | | [address] [facility] | [address]. | | | | | [address] [place], [place] | [place] [address] | | | | | [address] | | | | | | [phone] | | | +--------+ + + + [...]
--- OUTSIDE RECORDS SUMMARY | ~2019-06-25 | XMS | Encounter Summary ---
Demographics + + + | Address | [address] | | | [place] [address] | + + + | Home Phone [...] | Author | [facility] | | | and Jeffana | + + + | Organization | [facility] | | | and Jeffana [...] Team Providers + +------+ + | Care Peoplesoft Hr Developer Name | Role | Phone | + +------+ + PCP | Unavailable | + +------+ + Encounter Details +--------+ + + + + | Date | Type | Department | Care Team | Description | +--------+ + + + + | 10/20/ | Orders Only | [facility] | Dharmesh Escobar, | | | 2017 | | NEPHROLOGY [place] | [address] | | | | | [address] | [address] | | | | | [address] [place], [place] | [place] | | | | | [address] | [address] | | | | | [phone] | [phone] | | | | | | | [...]
--- OUTSIDE RECORDS SUMMARY | ~2019-06-25 | XMS | Encounter Summary ---
Demographics + + + | Address | [address] | | | [place] [address] | + + + | Home Phone [...] + | Katalina Padilla | ECON | [address] | | | | | [place], [place] | | | | | [address] | | + + + + + | Ellie Vang | ECON | Unknown | | + + + + + Care Team Providers + +------+ + | Care Hydrographer Name | Role | Phone | + [...] + + | 06/23/ | Hospital | [facility] [address] | Kaleb Wilcox MD | | | 2017 | Encounter | [address] | [address] | | | | | [address] | [place], [place] | | | | | [place], | [address] | | | | | [place] [address] | [phone] | | | | | [phone] | | | +--------+ + + + [...] hours or on weekends and holiday Hospital Information Systems Technician toll free ext. [phone] and have the GI doctor evp operations paged. The provider who performed your procedure is: Dr. Wilcox Results of your EGD: Dilation performed. You may resume your regular diet. Follow up Appointments with: Follow up with Dr. Pandey in bariatric surgery, thank you for choosing [facility]! Your primary care provider or [...] | | 0 | | | | CRB&GPP-K2-DQG97-GEN | mouth two times | | | [...] 2:35 PM PST PRE PROCEDURE NOTE: MR# [id number] Subjective: Elzbieta Cristina is a 43 y.o. [...] [place] | | | | | | [address] | | | | | | [phone] | | | | | | | | +--------+ + + + + | 08/19/ | Surgery | Surgery | Chilo, | OPEN VENTRAL HERNIA | | 2019 | | | MD Jorje [address] | REPAIR WITH | | | | | [address] | BIOLOGICAL MESH | | | | | [place], [place] | | | | | | [address] | | | | | | [phone] | | | | | | | | +--------+ + + + + | 09/15/ | Office | Cardiology | Randell Franks, | | | 2020 | Visit | | [address] | | | | | | [place], [place] | | | | | | [address] | | | | | | [phone] | | | | | | | [...] -----+ | MRN: | [facility] | | [id number] Date: 06/23/2018Patient Name: Elzbieta Curtis #: | ENDOSCOP Y | | [id number] of : 1975CSN: [id number] Type: | | | AmbulatoryRoom: SORProcedure: Upper GI | | | endoscopyIndications: Nausea with vomiting, Status post | | | Kysr-td-VWuhufztaa: KALEB WILCOX MD (Doctor), JOSE | | | NASIMA, Regional Marketing Manager | | | (Regional Marketing Manager)Referring MD: DANIELLE GARCÍAPRequestdonya | | | Provider: [...] | | | The Olympus GIF-[id number] Gastroscope #[id number] was | | | introduced through the [...] endoscope without resistance. The | | | jcwtm-tb-aycpnjh limb was characterized by healthy appearing | [...] Initiated On: | | | 06/23/2018 3:58 [facility] Letter to: FADI GOODRICH DO | [...] NKECHI AMES | [address] | [place], [place] | | | [place] [facility] | [address] | [address] | | | TESTS | | | [...] | | | | | | Until [facility] 06/24/18 at 0027, | | | [...] 06/23/18 at 1532, | | | Until [facility] 06/24/18 at 0027, | | | [...]
--- OUTSIDE RECORDS SUMMARY | ~2019-06-25 | XMS | Encounter Summary ---
Demographics + + + | Address | [address] | | | [place] [address] | + + + | Home Phone [...] [place], [place] | | | | | [address] | | + + + + + | Ellie Vang | ECON | Unknown | | + + + + + Care Team Providers + +------+ + | Care Intelligence Engineer Name | Role | Phone | [...] Visit | Medicine Clinic at | J, ONLINE MARKETING ANALYST | (Primary Dx); | | | | [facility] | | Dysphagia, | | | | [address] | | unspecified type; | | | | Mail Code: OC8PM | | Hypertension, | | | | Center for [facility] | | unspecified type; | | | | and Healing, | | Hyperlipidemia, | | | | [address] | | unspecified | | | | [place], [place] | | hyperlipidemia type; | | | | [address] | | Diastolic | | | | [phone] | | congestive heart | | | [...] | | Endotracheal Tube; 7; Oral; | PARADI OPERATOR | PARADI OPERATOR | | | Cuffed; 06/23/18; 1542 | [...] encounter Patient Instructions Patient Instructions Tiara Mckeon, ONLINE MARKETING ANALYST - 06/16/2018 3:15 PM [facility] PREOPERATIVE INSTRUCTIONS Please consider having [...] your procedure. Surgery check-in location: Admitting - [facility], ninth floor [facility] Surgery Check in Time: The Preoperative [...] it is after office hours, call the [facility] presetter operator at [phone] and ask them to page him or [...] weight loss and diuretic tx, follows with telephone clerks supervisor Hypothyroidism stabilized on hormone replacement Type 2 [...] renal failure no electrolyte abnormalities no dialysis Urology/Drilling Manager: Urologic Conditions: nephrolithiasis Endo: Diabetes: type [...] sublingual Place under tongue once daily. CALCIUM CRB&ILP-Z3-[id number]-GENIS ORAL Take 2 tablets by mouth two [...] Dr. Andie Brian Incisional hernia repair 03/01/2015 [facility]/ Dr. Cantu. Primary fascial closure and scar excision Lap gastric byp, and nilesh-en-y gastroenterostomy w/ nilesh limb 150 cm or less 8 [facility] Family history reviewed / updated Family [...] weight loss and diuretic tx, follows with telephone clerks supervisor. Appears comp ensated today. Hypothyroidism stabilized on hormone replacement. Take on DOS as usual Type 2 diabetes, well controlled with A1c 6.1 Thank you for the opportunity to contribute to this patient's care. HILDA Lagos [facility] PREADMIT CLINIC [facility] PBB PREOPERATIVE MEDICINE CLINIC AT [facility] 4TH FLOOR [address] [facility] [address] I advised the patient regarding [...] Rd | | | | | | [place], [place] | | | | | | [address] | | | | | | [phone] | | | | | | | | +--------+ + + + + | 08/19/ | Surgery | Surgery | Chilo, | OPEN VENTRAL HERNIA | | 2019 | | | MD [address] | REPAIR WITH | | | | | [address] | BIOLOGICAL MESH | | | | | [place], [place] | | | | | | [address] | | | | | | [phone] | | | | | | | | +--------+ + + + + | 09/15/ | Office | Cardiology | Randell Franks, | | | 2019 | Visit | | [address] | | | | | | [place], [place] | | | | | | [address] | | | | | | [phone] | | | | | | | [...]
--- OUTSIDE RECORDS SUMMARY | ~2019-06-25 | XMS | Encounter Summary ---
Demographics + + + | Address | [address] | | | [place] [address] | + + + | Home Phone [...] [place], [place] | | | | | [address] | | + + + + + | Ellie Vang | ECON | Unknown | | + + + + + Care Team Providers + +------+ + | Care Tube Tester Name | Role | Phone | + +------+ + | Fadi Goodrich DO | PCP | | + +------+ + Encounter Details +--------+------+ + + + | Date | Type | Department | Care Team | Description | +--------+------+ + + + | 12/05/ | Lab | Laboratory at [facility] | | Type 2 diabetes | | 2013 | | [address] | | mellitus (HCC) | | | | [place], [place] | | | | | | [address] | | | | | | [phone] | | | +--------+------+ + + + [...] Rd | | | | | | [place], [place] | | | | | | [address] | | | | | | [phone] | | | | | | | | +--------+ + + + + | 08/19/ | Surgery | Surgery | Chilo, | OPEN VENTRAL HERNIA | | 2019 | | | MD Jorje [address] | REPAIR WITH | | | | | [address] | BIOLOGICAL MESH | | | | | [place], [place] | | | | | | [address] | | | | | | [phone] | | | | | | | | +--------+ + + + + | 09/15/ | Office | Cardiology | Randell Franks, | | | 2019 | Visit | | [address] | | | | | | [place], [place] | | | | | | [address] | | | | | | [phone] | | | | | | | [...] A1c | 4.3 - 5.6 % | [facility] | | | A1C | Interpretive [...] | + + + + + | [facility] | [address] | [place] [address] | | | SERVICES, SPECIAL | PARK [...]
--- OUTSIDE RECORDS SUMMARY | ~2019-06-25 | XMS | Encounter Summary ---
Demographics + + + | Address | [address] | | | [place] [address] | + + + | Home Phone [...] [place], [place] | | | | | [address] | | + + + + + | Ellie Vang | ECON | Unknown | | + + + + + Care Team Providers + +------+ + | Care Film And Video Editor Name | Role | Phone | [...] [id number] | | | | | | [facility] | | | | | | [place], [place] | | | | | | [address] | | | | | | [phone] | | | +--------+ + + + [...] Rd | | | | | | [place], [place] | | | | | | [address] | | | | | | [phone] | | | | | | | | +--------+ + + + + | 08/19/ | Surgery | Surgery | Chilo, | OPEN VENTRAL HERNIA | | 2019 | | | MD Jorje [address] | REPAIR WITH | | | | | [address] | BIOLOGICAL MESH | | | | | [place], [place] | | | | | | [address] | | | | | | [phone] | | | | | | | | +--------+ + + + + | 09/15/ | Office | Cardiology | Randell Franks, | | | 2019 | Visit | | [address] | | | | | | [address] [place], [place] | | | | | | [address] | | | | | | [phone] | | | | | | | | +--------+ + + + + documented as of this encounter Visit Diagnoses Not on filedocumented in this encounter"
--- OUTSIDE RECORDS SUMMARY | ~2019-06-25 | XMS | Encounter Summary ---
Demographics + + + | Address | [address] | | | [place] [address] | + + + | Home Phone [...] [place], [place] | | | | | [address] | | + + + + + | Ellie Vang | ECON | Unknown | | + + + + + Care Team Providers + +------+ + | Care Trailer Assembler Name | Role | Phone | [...] | 2015 | Visit | Center at [facility] [address] | | (Primary Dx) | | | | [address] | | | | | | Mailcode: Center | | | | | | for Health and | | | | | | [facility] 2 | | | | | | [place], [place] | | | | | | [address] | | | | | | [phone] | | | +--------+---------+ + + + [...] of Class: 2:00 until 3:00 (60 minutes husi-gc-mgru with patient) OBJECTIVE: Height: Ht Readings from [...] or sharing information. Yes Yuli [address], [facility], [place] Pager# [phone] documented in this enc ounter Plan of [...] Rd | | | | | | [place], [place] | | | | | | [address] | | | | | | [phone] | | | | | | | | +--------+ + + + + | 08/19/ | Surgery | Surgery | Chilo, | OPEN VENTRAL HERNIA | | 2019 | | | MD Jorje [address] | REPAIR WITH | | | | | [address] | BIOLOGICAL MESH | | | | | [place], [place] | | | | | | [address] | | | | | | [phone] | | | | | | | | +--------+ + + + + | 09/15/ | Office | Cardiology | Randell Franks, | | | 2019 | Visit | | [address] | | | | | | [place], [place] | | | | | | [address] | | | | | | [phone] | | | | | | | | +--------+ + + + + documented as of this encounter Visit Diagnoses + + | Diagnosis | + + | Morbid obesity (HCC) - Primary Morbid obesity | + + documented in this encounter
--- OUTSIDE RECORDS SUMMARY | ~2019-06-25 | XMS | Encounter Summary ---
Demographics + + + | Address | [address] | | | [place] [address] | + + + | Home Phone | | + + + | Preferred Language | Unknown | + + + | Marital Status | | + + + | Restorationism Affiliation | Unknown | + + + | Race | Unknown | + + + | Ethnic Group | Unknown | + + + Author + + + | Author | [facility] | | | and Jeffana | + + + | Organization | [facility] | | | and [...] Providers + +------+ + | Care Electric Motor Analyst Name | Role | Phone | + +------+ + PCP | Unavailable | + +------+ + Encounter Details +--------+ + + + + | Date | Type | Department | Care Team | Description | +--------+ + + + + | 10/07/ | Orders Only | [facility] | Dharmesh Escobar, | | | 2018 | | NEPHROLOGY [place] | HONEY BLENDER [address] | | | | | [address] | [address] | | | | | [address] [place], [place] | [place] | | | | | [address] | [address] | | | | | [phone] | [phone] | | | | | | | [...] | | | LAB | | | [place] | | | | | + +---------+ [...]
--- OUTSIDE RECORDS SUMMARY | ~2019-06-25 | XMS | Encounter Summary ---
Demographics + + + | Address | [address] | | | [place] [address] | + + + | Home Phone [...] Author | [facility] | | | and Jeffana | + + + | Organization | [facility] | | | and [...] Team Providers + +------+ + | Care Last Scourer Name | Role | Phone | + +------+ + PCP | Unavailable | + +------+ + Encounter Details +--------+ + + + + | Date | Type | Department | Care Team | Description | +--------+ + + + + | 01/01/ | Orders Only | [facility] | Kishan Peñaloza | | | 2016 | | CONVERSION [address] | MD [address] | | | | | [address] | [address] | | | | | [place], [place] | [place] [address] | | | | | [address] | [phone] | | | | | [phone] | | | +--------+ + + + [...] | | to assess segmental wall motion, [place] visually estimates LVEF | | | >70%. [...] assess | | | segmental wall motion, [place] visually estimates LVEF >70%. RV | | [...] not well visualized. MEASUREMENTS | | | Computational Scientist: JESSICA Authenticated by: Edson Cruz DO | [...] to assess | | segmental wall motion, [place] visually estimates LVEF >70%. RV grossly NML. [...] | IVC was not well visualized. MEASUREMENTS Computational Scientist: HONEYuthenticated by: | | Edson Jones Date/Time: 01-02-2016 19:12:36 IMPRESSION: 1. See Dictation. | | TDS. Sinus. 2. Cardiac chamber dimensions grossly NML. LV systolic and diastolic | | functions grossly NML, unable to assess segmental wall motion, [place] visually estimates | | LVEF >70%. RV [...] | |MEASUREMENTS | | | | | |Computational Scientist: JESSICA | |Authenticated by: Edson Cruz DO | |Report Date/Time: 01-02-2016 19:12:36 | | | |IMPRESSION: | |1. See Dictation. TDS. Sinus. 2. Cardiac chamber dimensions grossly NML. LV systolic and diastolic functions grossly NML, unable to assess segmental wall motion, [place] visually es timates LVEF >70%. RV grossly | |NML. 3. Aortic valve sclerotic, no /AI | | observed. Mitral and Tricuspid valves grossly NML, Pulmonic valve not seen well. Trace T R. 4. No Pericardial effusion. 5. IVC not seen well. | + + documented in this encounter Visit Diagnoses Not on filedocumented in this encounter"
--- OUTSIDE RECORDS SUMMARY | ~2019-06-25 | XMS | Encounter Summary ---
Demographics + + + | Address | [address] | | | [place] [address] | + + + | Home Phone [...] [place], [place] | | | | | [address] | | + + + + + | Ellie Vang | ECON | Unknown | | + + + + + Care Team Providers + +------+ + | Care Customer Complaint Clerk Name | Role | Phone | + +------+ + | Fadi Goodrich DO | PCP | | + +------+ + Encounter Details +--------+ + + + + | Date | Type | Department | Care Team | Description | +--------+ + + + + | 12/31/ | Abstract | Digestive Health | Hernandze Brian, | | | 2012 | | Center at [facility] [address] | MD [address] | | | | | [address] | [facility] | | | | | Mailcode: Center | [place], [place] | | | | | [facility] Health and | [address] | | | | | [facility], [facility] 2 | [phone] | | | | | [place], [place] | | | | | | [address] | | | | | | [phone] | | | +--------+ + + + [...] Rd | | | | | | [place], [place] | | | | | | [address] | | | | | | [phone] | | | | | | | | +--------+ + + + + | 08/19/ | Surgery | Surgery | Chilo, | OPEN VENTRAL HERNIA | | 2019 | | | MD Jorje [address] | REPAIR WITH | | | | | [address] | BIOLOGICAL MESH | | | | | [facility] [place] | | | | | | [address] | | | | | | [phone] | | | | | | | | +--------+ + + + + | 09/15/ | Office | Cardiology | Randell Franks, | | | 2019 | Visit | | [address] | | | | | | [place] [facility] [place] | | | | | | [address] | | | | | | [phone] | | | | | | | | +--------+ + + + + documented as of this encounter Visit Diagnoses Not on filedocumented in this encounter"
--- OUTSIDE RECORDS SUMMARY | ~2019-06-25 | XMS | Encounter Summary ---
Demographics + + + | Address | [address] | | | [place] [address] | + + + | Home Phone [...] [place], [place] | | | | | [address] | | + + + + + | Ellie Vang | ECON | Unknown | | + + + + + Care Team Providers + +------+ + | Care Buyers' Agent Name | Role | Phone | [...] 2014 | | Center at [facility] [address] | [facility] [address] | Review (Pre-surgery | | | | [address] | Ave [place], [place] | meal plan. To be | | | | Mailcode: Center | [address] | provided to home | | | | for Health and | | health nurse. ) | | | | [facility], [address] | | | | | | [place], [place] | | | | | | [address] | | | | | | | [...] Rd | | | | | | [place], [place] | | | | | | [address] | | | | | | [phone] | | | | | | | | +--------+ + + + + | 08/19/ | Surgery | Surgery | Chilo, | OPEN VENTRAL HERNIA | | 2019 | | | MD Jorje [address] | REPAIR WITH | | | | | [address] | BIOLOGICAL MESH | | | | | [place] | | | | | | [address] | | | | | | [phone] | | | | | | | | +--------+ + + + + | 09/15/ | Office | Cardiology | Randell Franks, | | | 2019 | Visit | | [address] | | | | | | [place] | | | | | | [address] | | | | | | [phone] | | | | | | | | +--------+ + + + + documented as of this encounter Visit Diagnoses Not on filedocumented in this encounter"
--- OUTSIDE RECORDS SUMMARY | ~2019-06-25 | XMS | Encounter Summary ---
Demographics + + + | Address | [address] | | | [place] [address] | + + + | Home Phone [...] + | Katalina Padilla | ECON | [address] | | | | | [place], [place] | | | | | [address] | | + + + + + | Ellie Vang | ECON | Unknown | | + + + + + Care Team Providers + +------+ + | Care Vice President Lending Name | Role | Phone | + [...] | | | | | | | [address] | | | | | | | [address] | | | | | | | [place], | | | | | | | [place] | | | | | | | [address] | | | | | | | Phone: | | | | | | | [phone] | | | | | | | Fax: | | | | | | | [phone] | +--------+--------+ + + + + Encounter Details +--------+---------+ + + + | Date | Type | Department | Care Team | Description | +--------+---------+ + + + | 04/14/ | Office | Digestive Health | Hernandez Brian, | Morbid obesity (HCC) | | 2013 | Visit | Center at [facility] [address] | [address] | (Primary Dx); Type | | | [address] | [address] | 2 diabetes mellitus | | | | Mailcode: Center | [place], [place] | ([facility]); AMARA | | | | for Health and | [address] | (obstructive sleep | | | | [facility] 2 | [phone] | apnea); Edema | | | | [place], [place] | | | | | | [address] | | | | | | [phone] | | | +--------+---------+ + + + [...] this year, she was tr ansferred from [place] for surgical evaluation of possible incarcerated ventral [...] with close followup by her PCP in [place] in the interim. Dr. Guillory in [place] has been following her since January, with CT scan obtained at [facility] in [place] 02/09/2013 (images in [facility]), demonstrating "recurrent hypogastric [...] to follow up with her providers at [facility] to include a visi t to our [...] r weight loss efforts. She saw a underground mine superintendent today and Melida came in to discuss [...] and well perfused. 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 There is a well [...] Rd | | | | | | [place], [place] | | | | | | [address] | | | | | | [phone] | | | | | | | | +--------+ + + + + | 08/19/ | Surgery | Surgery | Chilo | OPEN VENTRAL HERNIA | | 2019 | | | MD [address] | REPAIR WITH | | | | | [address] | BIOLOGICAL MESH | | | | | [place], [place] | | | | | | [address] | | | | | | [phone] | | | | | | | | +--------+ + + + + | 09/15/ | Office | Cardiology | Randell Franks, | | | 2020 | Visit | | [address] | | | | | | [place], [place] | | | | | | [address] | | | | | | [phone] | | | | | | | | +--------+ + + + + documented as of this encounter Visit Diagnoses + + | Diagnosis | + + | Morbid obesity (HCC) - Primary Morbid obesity | + + | Type 2 diabetes mellitus ([facility]) Type II or unspecified type diabetes mellitus without | | mention of complication, not stated as uncontrolled | + + | AMARA (obstructive sleep apnea) Obstructive sleep apnea (adult) (pediatric) | + + | Edema | + + documented in this encounter
--- OUTSIDE RECORDS SUMMARY | ~2019-06-25 | XMS | Encounter Summary ---
Demographics + + + | Address | [address] | | | [place] [address] | + + + | Home Phone [...] [place], [place] | | | | | [address] | | + + + + + | Ellie Vang | ECON | Unknown | | + + + + + Care Team Providers + +------+ + | Care Nutrition Aide Name | Role | Phone | [...] | | 2019 | | Center at [facility] [address] | AGACNP [address] | | | | | [address] | [place], [place] | | | | | Mailcode: [place] | [address] | | | | | for [facility] and | | | | | | [address] [place] [address] | | | | | | [place], [place] | | | | | | [address] | | | | | | | [...] Rd | | | | | | [place] | | | | | | [address] | | | | | | [phone] | | | | | | | | +--------+ + + + + | 08/19/ | Surgery | Surgery | Chilo, | OPEN VENTRAL HERNIA | | 2019 | | | MD Jorje [address] | REPAIR WITH | | | | | [address] | BIOLOGICAL MESH | | | | | [place] | | | | | | [address] | | | | | | [phone] | | | | | | | | +--------+ + + + + | 09/15/ | Office | Cardiology | Randell Franks, | | | 2019 | Visit | | [address] | | | | | | [place] | | | | | | [address] | | | | | | [phone] | | | | | | | | +--------+ + + + + documented as of this encounter Visit Diagnoses Not on filedocumented in this encounter"
--- OUTSIDE RECORDS SUMMARY | ~2019-06-25 | XMS | Encounter Summary ---
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 documented in this [...] times daily. , Disp: , Rfl: CALCIUM CRB&TXP-R7-TUT14-GENIS ORAL, Take 2 tablets by mouth two [...] History Narrative Updated 11/09/15 She lives in [place] with her mother and her sister (also her caregiver) lives in an apa rtment/duplex below. She has 2 grandchildren (age 4 and 7) who live with her daughter and son-in-law Her boyfriend lives in [place] HFpEF, DM2, HTN, Sleep Apnea (unable to [...] program here and refer her to our orthopedic specialist who also has expertise in physical [...] Increase torsemide to pre-surgical dose +Take acid funeral car chauffeur for first 3 mos, then wean off [...] she will make an appointment with her Dusting And Brushing Machine Operator to discuss insulin dosing and CBGs [...] to POC and will call or send [facility] if any issues. Start time 15:35, end time 15:55. I spent a total of 20 minutes face to face with this pat ient. Over 50% of visit was in counseling. ~ 10 minutes of additional time spent reviewing chart prior to visit and documenting after this visit. Ronna Clarke DNP ACNP COIL TESTER Bariatric Surgery Nurse Practitioner [facility] | [address] | [place], [place] | [address] | documented in this e ncounter Plan [...] 2020 | Encounter | | MD Jorje [address] | | | | | | [address] | | | | | | [place], [place] | | | | | | [address] | | | | | | [phone] | | | | | | | | +--------+ + + + + | 08/19/ | Surgery | Surgery | Chilo, | OPEN VENTRAL HERNIA | | 2019 | | | MD Jorje [address] | REPAIR WITH | | | | | [address] | BIOLOGICAL MESH | | | | | [place], [place] | | | | | | [address] | | | | | | [phone] | | | | | | | | +--------+ + + + + | 09/15/ | Office | Cardiology | Randell Franks, | | | 2019 | Visit | | [address] | | | | | | Ave [place], [place] | | | | | | [address] | | | | | | [phone] | | | | | | | [...] + | [facility] - | [address] | [place] [address] | | | [place] | | | | + + + [...]
--- OUTSIDE RECORDS SUMMARY | ~2019-06-25 | XMS | Encounter Summary ---
Demographics + + + | Address | [address] | | | [place] [address] | + + + | Home Phone [...] [place], [place] | | | | | [address] | | + + + + + | Ellie Vang | ECON | Unknown | | + + + + + Care Team Providers + +------+ + | Care Fishing Rod Mechanic Name | Role | Phone | [...] Rd | | | | | | [place], [place] | | | | | | [address] | | | | | | [phone] | | | | | | | | +--------+ + + + + | 08/19/ | Surgery | Surgery | Chilo, | OPEN VENTRAL HERNIA | | 2019 | | | MD Jorje [address] | REPAIR WITH | | | | | [address] | BIOLOGICAL MESH | | | | | [place], [place] | | | | | | [address] | | | | | | [phone] | | | | | | | | +--------+ + + + + | 09/15/ | Office | Cardiology | Randell Franks, | | | 2019 | Visit | | [address] | | | | | | [place], [place] | | | | | | [address] | | | | | | [phone] | | | | | | | | +--------+ + + + + documented as of this encounter Visit Diagnoses Not on filedocumented in this encounter"
--- OUTSIDE RECORDS SUMMARY | ~2019-06-25 | XMS | Encounter Summary ---
Demographics + + + | Address | [address] | | | [place] [address] | + + + | Home Phone [...] [place], [place] | | | | | [address] | | + + + + + | Ellie Vang | ECON | Unknown | | + + + + + Care Team Providers + +------+ + | Care Head Animal Trainer Name | Role | Phone [...] | | 2015 | | Preventive at [facility] | [address] | (phentermine 37.5 mg | | | | [address] | [address] [facility] [place] | ) | | | | Mailcode: [facility] | [address] | | | | | [facility] | [phone] | | | | | and [address], | | | | | | Building [address] | | | | | | [place], [place] | | | | | | [address] | | | | | | [phone] | | | +--------+--------+ + + + [...] Rd | | | | | | [place] | | | | | | [address] | | | | | | [phone] | | | | | | | | +--------+ + + + + | 08/19/ | Surgery | Surgery | Chilo, | OPEN VENTRAL HERNIA | | 2019 | | | MD [address] | REPAIR WITH | | | | | [address] | BIOLOGICAL MESH | | | | | [place], [place] | | | | | | [address] | | | | | | [phone] | | | | | | | | +--------+ + + + + | 09/15/ | Office | Cardiology | Randell Franks, | | | 2020 | Visit | | [address] | | | | | | [place], [place] | | | | | | [address] | | | | | | [phone] | | | | | | | | +--------+ + + + + documented as of this encounter Visit Diagnoses Not on filedocumented in this encounter"
--- OUTSIDE RECORDS SUMMARY | ~2019-06-25 | XMS | Encounter Summary ---
Demographics + + + | Address | [address] | | | [place] [address] | + + + | Home Phone [...] + | Author | [facility] | | | and Jeffana | + + + | Organization | [facility] | [...] Team Providers + +------+ + | Care Formal Waiter/Waitress Name | Role | Phone | + +------+ + PCP | Unavailable | + +------+ + Reason for Referral Evaluate & Treat (Routine) + + + + + + + | Status | Reason | Specialty | Diagnoses / | Referred By | Referred To | | | | | Procedures | Contact | Contact | + + + + + + + | Authorized | Specialty | Pulmonary | Diagnoses | [place], | [address] | | | Services | Disease | Chronic | [facility], | [facility] | | | Required | | diastolic | [facility] [address] | SLEEP | | | | | heart | PAYAL GASTON | DISORDERS LAB | | | | | failure | DMITRI F | [address] | | | | | (HCC) | [place], [place] | [address] | | | | | History of | [address] | [place], [place] | | | | | sinus | Phone: | [address] | | | | | tachycardia | [phone] | Phone: | | | | | History of | Fax: | [phone] | | | | | bariatric | [phone] | Fax: | | | | | surgery | | [phone] | | | | | Sleep apnea [...] | | | (HCC) | | | + + + + [...] + + | 04/28/ | Office | [facility] | Sulema Altamirano | Chronic diastolic | | 2019 | Visit | CARDIOLOGY [place] | [address] | heart failure (HCC) | | | | [address] | PAY[place]HE[place] | (Primary Dx); | | | | [address] | [place] [address] | History of sinus | | | | [place] | [phone] | tachycardia; History | | | | [address] | | of stroke; HTN, | | | | [phone] | | goal below 130/80; | | [...] have referred you to Dr. Rascon at [place] [facility] , call [phone] for an appointment next week I made [...] dysfunction with previous dysfunctional RV treated at [facility] with diuresis and hospitalization for one month., sleep apnea treated with BiPAP, t ype II diabetes, hypothyroidism, morbid obesity with alveolar hypoventilation, Frandy-en-Y ga stric bypass surgery 02/2018, osteoarthritis,DVT and PE 2016, hypokalemia and hyperuricemia which is being followed by belt loop cutter Dr. Fu, and SELINA Escobar. Her current [...] will be seeing a surgeon a barron [facility] on May 05. In the meantime she [...] surgery, and weight down 123 pounds since [facility] 2017 when weighed 394 lbs. She [...] hypothyroidism,followed by Dr. Franks, endocrin ologist at [facility]) . Denies excessive thirst or hunger. [...] knee pain and hernia pain Lives in [facility] ith her mother who smokes. . Sister is rn care transition. Grandchildren ages 4 and 7 live with he r daughter and son-in-law. Disabled , on disability .01/24/2019: working with [employer] to get her own place. Outpatient Medications [...] film Suboxone 2 mg-0.5 mg sublingual film Hkdxiem-Sfkuszizk-Wzatnco D (CITRACAL CALCIUM+D PO) Take 2 tablets [...] Pen Needle (NOVOFINE) 32G X 6 MM [employer] [facility] [employer] Novofine 32 32 gauge x 1/4" needle [...] monohydrate/macrocrystals 100 m g capsule nystatin (NYSTATIN) 529069 UNIT/GM powder Nyamyc 100,000 unit/gram topical powder [...] Take 30 mg by mouth Daily. thyroid (DOUGHNUT ICER MACHINE THYROID) 30 mg tablet DOUGHNUT ICER MACHINE Thyroid 30 mg tablet TAKE ONE TABLET [...] Left lower extremity DVT, presumed PE: 10/2015 [facility]. treated with heparin drip and Coumadin 10 in hospital, with Coumadin 6 months as outpatient, ASA 81 mg continued Venous US: right leg, 04/28/2016: No evidence of DVT. EKG EKG 10/27: ([facility]) Normal sinus rhythm. Normal EKG. Rate 93 bpm, NE 172 ms, QRS 90 ms, QTC 465 ms personally reviewed by me in the office today) EK02/05: Sinus tachycardia, otherwise normal. Rate 160 bpm, NE 174 ms, QRS 74 ms, QTC 451 ms (personally reviewed by me in the office today and no significant change seen fro m EKG done in October 2016 except for faster heart rate) EK04/26/2018: Normal sinus rhythm, rate 74 bpm, NE 182 ms, QRS 96 ms, QTC 472 ms, tracin g personally reviewed by me, and compared to previous EKG, heart rate is now better controll ed, otherwise similar morphology EK04/28/2019: Normal sinus rhythm, right axis. Rate 74 bpm, NE 170 ms, QRS 88 ms, QTC 45 [...] providers at the [place] [facility] in [place], so I have referred her again to Dr. Rascon at the [place] [facility], and she ne eds [...] Placed This Encounter Procedures Ambulatory Referral to [facility] Pulmonology- Sleep study as well [...] past surgical history. Problem list. Maryse MARKS [facility] Cardiology 04/28/2019 docume nted in this encounter Plan of Treatment + + +--------+ + + | Name | Type | Priori | Associated Diagnoses | Order Schedule | | | | ty | | | + + +--------+ + + | Ambulatory Referral | Outpatient | Routin | Chronic diastolic | Ordered: 04/28/2019 | | to [facility] | Referral | e | [...] of insulin ([facility]) | | + + +--------+ + + [...] | | | | | by [facility] [place] Read Only, | | | | | | [facility] ([id number]), | | | | | | society editor Glen Alberto | | | | | | ([id number]) on 04/28/2019 | | | | | [...]
--- OUTSIDE RECORDS SUMMARY | ~2019-06-25 | XMS | Encounter Summary ---
Demographics + + + | Address | [address] | | | [place] [address] | + + + | Home Phone | | + + + | Preferred Language | Unknown | + + + | Marital Status | | + + + | Yarsani Affiliation | Unknown | + + + | Race | Unknown | + + + | Ethnic Group | Unknown | + + + Author + + + | Author | [facility] | | | and Jeffana | + + + | Organization | [facility] | | | and [...] Team Providers + +------+ + | Care Pinsetter Mechanic Helper Name | Role | Phone | + +------+ + PCP | Unavailable | + +------+ + Encounter Details +--------+ + + + + | Date | Type | Department | Care Team | Description | +--------+ + + + + | 02/17/ | Orders Only | [facility] | Provider, | Pure | | 2019 | | SYSTEM GENERIC OP | [address], [address] | hyperglyceridemia; | | | | CONVERSION [address] | [address] | Hypokalemia; | | | | [address] [place], [place] | [place] [address] | Dehydration; | | | | [address] | | Hyperuricemia | | | | [phone] | | without signs of | | [...] of this encounter Plan of Treatment + +------+--------+ [...]
--- OUTSIDE RECORDS SUMMARY | ~2019-06-25 | XMS | Encounter Summary ---
Demographics + + + | Address | [address] | | | [place] [address] | + + + | Home Phone [...] + | Katalina Padilla | ECON | [address] | | | | | [place], [place] | | | | | [address] | | + + + + + | Ellie Vang | ECON | Unknown | | + + + + + Care Team Providers + +------+ + | Care Boring Machine Operator Name | Role | Phone [...] | 2016 | on | Center at [place] [id number] | | | | | | [address] | | | | | | Mailcode: [place] | | | | | | for Health and | | | | | | [facility], [facility] 2 | | | | | | [place], [place] | | | | | | [address] | | | | | | [phone] | | | +--------+ + + + [...] Rd | | | | | | [place], [place] | | | | | | [address] | | | | | | [phone] | | | | | | | | +--------+ + + + + | 08/19/ | Surgery | Surgery | Chilo, | OPEN VENTRAL HERNIA | | 2019 | | | MD [address] | REPAIR WITH | | | | | [address] | BIOLOGICAL MESH | | | | | [place], [place] | | | | | | [address] | | | | | | [phone] | | | | | | | | +--------+ + + + + | 09/15/ | Office | Cardiology | Randell Franks, | | | 2019 | Visit | | [address] | | | | | | Ave [place], [place] | | | | | | [address] | | | | | | [phone] | | | | | | | | +--------+ + + + + documented as of this encounter Visit Diagnoses Not on filedocumented in this encounter"
--- OUTSIDE RECORDS SUMMARY | ~2019-06-25 | XMS | Encounter Summary ---
Demographics + + + | Address | [address] | | | [place] [address] | + + + | Home Phone [...] [place], [place] | | | | | [address] | | + + + + + | Ellie Vang | ECON | Unknown | | + + + + + Care Team Providers + +------+ + | Care Desk Representative Name | Role | Phone | [...] | | 2019 | | Center at [facility] [address] | MD [address] | | | | [address] | [address] | | | | | Mailcode: Center | [place], [place] | | | | | [facility] and | [address] | | | | | [facility] 2 | [phone] | | | | | [place], [place] | | | | | | [address] | | | | | | [phone] | | | +--------+ + + + [...] Rd | | | | | | [place], [place] | | | | | | [address] | | | | | | [phone] | | | | | | | | +--------+ + + + + | 08/19/ | Surgery | Surgery | Chilo, | OPEN VENTRAL HERNIA | | 2019 | | | MD [address] | REPAIR WITH | | | | | [address] | BIOLOGICAL MESH | | | | | [place], [place] | | | | | | [address] | | | | | | [phone] | | | | | | | | +--------+ + + + + | 09/15/ | Office | Cardiology | Randell Franks, | | | 2019 | Visit | | [address] | | | | | | [place], [place] | | | | | | [address] | | | | | | [phone] | | | | | | | | +--------+ + + + + documented as of this encounter Visit Diagnoses Not on filedocumented in this encounter"
--- OUTSIDE RECORDS SUMMARY | ~2019-06-25 | XMS | Encounter Summary ---
Demographics + + + | Address | [address] | | | [place] [address] | + + + | Home Phone [...] [place], [place] | | | | | [address] | | + + + + + | Ellie Vang | ECON | Unknown | | + + + + + Care Team Providers + +------+ + | Care Software Engineering Project Manager Name | Role | Phone [...] Center | | | | | | [place], [place] | | | | | | [address] | | | | | | [phone] | | | +--------+ + + + [...] Rd | | | | | | [place], [place] | | | | | | [address] | | | | | | [phone] | | | | | | | | +--------+ + + + + | 08/19/ | Surgery | Surgery | Chilo | OPEN VENTRAL HERNIA | | 2019 | | | MD [address] | REPAIR WITH | | | | | [address] | BIOLOGICAL MESH | | | | | [place], [place] | | | | | | [address] | | | | | | [phone] | | | | | | | | +--------+ + + + + | 09/15/ | Office | Cardiology | Randell Franks, | | | 2019 | Visit | | [address] | | | | | | [place] | | | | | | [address] | | | | | | [phone] | | | | | | | | +--------+ + + + + documented as of this encounter Visit Diagnoses Not on filedocumented in this encounter"
--- OUTSIDE RECORDS SUMMARY | ~2019-06-25 | XMS | Encounter Summary ---
Demographics + + + | Address | [address] | | | [place] [address] | + + + | Home Phone [...] [place], [place] | | | | | [address] | | + + + + + | Ellie Vang | ECON | Unknown | | + + + + + Care Team Providers + +------+ + | Care Manager Of Regulatory Affairs Name | Role | Phone | + [...] [address] | | | | | | [facility] | [facility] | | | | | | Brock [facility] | Brock Mailcode: | | | | | | [facility] | [address] | | | | | | [place], [place] | [facility]icians | | | | | | [address] | [address] | | | | | | Phone: | [place], [place] | | | | | | [phone] | [address] | | | | | | | Phone: | | | | | | | [phone] | | | | | | | Fax: | | | | | | | [phone] | +--------+--------+ + + + + Encounter [...] [facility] [address] | [address] [place], | | | | | [address] | [place] [address] | | | | | Mailcode: [address] | [phone] | | | | | [facility] | | | | | | [address] [place], [place] | | | | | | [address] | | | | | | [phone] | | | +--------+---------+ + + + [...] a HIDA scan to be done in [place] to verify that she does not have [...] Surgery Resident Department of General Surgery Pager: [phone] I saw and evaluated the patient. I agree with the findings and the plan of care as dequan han in the resident s note. PRADIP STARR MD [facility] GENERAL SURGERY AT [facility] [address] [facility] Mailcode: [address] [place] [address] documented in this encoun ter [...] Rd | | | | | | [place], [place] | | | | | | [address] | | | | | | [phone] | | | | | | | | +--------+ + + + + | 08/19/ | Surgery | Surgery | Chilo, | OPEN VENTRAL HERNIA | | 2019 | | | MD [address] | REPAIR WITH | | | | | [address] | BIOLOGICAL MESH | | | | | [place], [place] | | | | | | [address] | | | | | | [phone] | | | | | | | | +--------+ + + + + | 09/15/ | Office | Cardiology | Randell Franks, | | | 2019 | Visit | | MD [address] | | | | | | Ave [place], [place] | | | | | | [address] | | | | | | [phone] | | | | | | | [...] | + + + + + | [facility] | [address] | [place] [address] | | | SERVICES, CORE | [address] | | | + + + + + documented in this encounter Visit Diagnoses + + | Diagnosis | + + | Cholecystitis - Primary Cholecystitis, unspecified | + + documented in this encounter
--- OUTSIDE RECORDS SUMMARY | ~2019-06-25 | XMS | Encounter Summary ---
Demographics + + + | Address | [address] | | | [place] [address] | + + + | Home Phone [...] | + + + + + | Katlaina Padilla | ECON | [address] | | | | | [place], [place] | | | | | [address] | | + + + + + | Ellie Vang | ECON | Unknown | | + + + + + Care Team Providers + +------+ + | Care Email Deployment Specialist Name | Role | Phone | [...] | | 2019 | | Center at [facility] [address] | MD [address] | | | | [address] | [address] | | | | | Mailcode: Center | [place], [place] | | | | | [facility] and | [address] | | | | | [facility] 2 | [phone] | | | | | [place], [place] | | | | | | [address] | | | | | | [phone] | | | +--------+ + + + [...] Rd | | | | | | [place], [place] | | | | | | [address] | | | | | | [phone] | | | | | | | | +--------+ + + + + | 08/19/ | Surgery | Surgery | Chilo, | OPEN VENTRAL HERNIA | | 2019 | | | MD [address] | REPAIR WITH | | | | | [address] | BIOLOGICAL MESH | | | | | [place], [place] | | | | | | [address] | | | | | | [phone] | | | | | | | | +--------+ + + + + | 09/15/ | Office | Cardiology | Randell Franks, | | | 2019 | Visit | | [address] | | | | | | [place], [place] | | | | | | [address] | | | | | | [phone] | | | | | | | | +--------+ + + + + documented as of this encounter Visit Diagnoses Not on filedocumented in this encounter"
--- OUTSIDE RECORDS SUMMARY | ~2019-06-25 | XMS | Encounter Summary ---
Demographics + + + | Address | [address] | | | [place] [address] | + + + | Home Phone [...] [place], [place] | | | | | [address] | | + + + + + | Ellie Vang | ECON | Unknown | | + + + + + Care Team Providers + +------+ + | Care Travel Rn [place] Name | Role | Phone | + +------+ + | Kenyatta Cardenas MD | PCP | | + +------+ + Encounter Details +--------+ + + + + | Date | Type | Department | Care Team | Description | +--------+ + + + + | 03/10/ | Pharmacy | [facility] | | | | 2018 | Visit | [facility] | | | | | | [address] | | | | | | Mailcode: Center | | | | | | [facility] and | | | | | | [facility], [facility] 1 | | | | | | [place], [place] | | | | | | [address] | | | | | | [phone] | | | +--------+ + + + [...] Rd | | | | | | [place], [place] | | | | | | [address] | | | | | | [phone] | | | | | | | | +--------+ + + + + | 08/19/ | Surgery | Surgery | Chilo, | OPEN VENTRAL HERNIA | | 2019 | | | MD [address] | REPAIR WITH | | | | | [address] | BIOLOGICAL MESH | | | | | [place], [place] | | | | | | [address] | | | | | | [phone] | | | | | | | | +--------+ + + + + | 09/15/ | Office | Cardiology | Randell Franks, | | | 2019 | Visit | | [address] | | | | | | Ave [facility] [place] | | | | | | [address] | | | | | | [phone] | | | | | | | | +--------+ + + + + documented as of this encounter Visit Diagnoses Not on filedocumented in this encounter"
--- OUTSIDE RECORDS SUMMARY | ~2019-06-25 | XMS | Encounter Summary ---
Demographics + + + | Address | [address] | | | [place] [address] | + + + | Home Phone [...] [place], [place] | | | | | [address] | | + + + + + [...] | | | | [facility] | | | | | | [place], [place] | | | | | | [address] | | | | | | [phone] | | | +--------+ + + + [...] | | | | | | [facility] [place] | | | | | | [address] | | | | | | [phone] | | | | | | | | +--------+ + + + + | 08/19/ | Surgery | Surgery | Chilo | OPEN VENTRAL HERNIA | | 2019 | | | MD [address] | REPAIR WITH | | | | | [address] | BIOLOGICAL MESH | | | | | [place], [place] | | | | | | [address] | | | | | | [phone] | | | | | | | | +--------+ + + + + | 09/15/ | Office | Cardiology | Randell Franks, | | | 2019 | Visit | | [address] | | | | | | [place], [place] | | | | | | [address] | | | | | | [phone] | | | | | | | [...] | | | | navigated a #5.5 Nicaraguan | | | | | | Ozzy [...] | | + +---------+ + + | [facility] DEPARTMENT OF | | [...] | | + +---------+ + + | [facility] DEPARTMENT OF | | [...] | | + +---------+ + + | [facility] DEPARTMENT OF | | [...] | | | | | | a#5.5 Nicaraguan sheath was | | | | | | secured into place. In | | | | | | a similar fashion, | | | | | | a#7.0 Nicaraguan sheath was | | | | | [...] | | | | | The #7 Nicaraguan Brite | | | | | | [...] | | + +---------+ + + | [facility] DEPARTMENT OF | | | | | RADIOLOGY | | | | + +---------+ + + documented in this encounter Visit Diagnoses Not on filedocumented in this encounter
--- OUTSIDE RECORDS SUMMARY | ~2019-06-25 | XMS | Encounter Summary ---
Demographics + + + | Address | [address] | | | [place] [address] | + + + | Home Phone [...] [place], [place] | | | | | [address] | | + + + + + | Ellie Vang | ECON | Unknown | | + + + + + Care Team Providers + +------+ + | Care Insurance Advisor Name | Role | Phone | [...] | | | 2014 | Event | [facility] | MD Raza [address] | | | | | Admitting Desk | [address] | | | | | Located on the 9 | [place], [place] | | | | | floor [address] | [address] | | | | | [address] | [phone] | | | | | [place], [place] | | | | | | [address] | Marcial Brunner CRNA | | | | | | [address] | | | | | | [address]uti[address] [place], | | | | | | [place] [address] | | | | | | [phone] | | | | | | | [...] Rd | | | | | | [place], [place] | | | | | | [address] | | | | | | [phone] | | | | | | | | +--------+ + + + + | 08/19/ | Surgery | Surgery | Chilo, | OPEN VENTRAL HERNIA | | 2019 | | | MD Jorje [address] | REPAIR WITH | | | | | [address] | BIOLOGICAL MESH | | | | | [place], [place] | | | | | | [address] | | | | | | [phone] | | | | | | | | +--------+ + + + + | 09/15/ | Office | Cardiology | Randell Franks, | | | 2019 | Visit | | [address] | | | | | | [place], [place] | | | | | | [address] | | | | | | [phone] | | | | | | | [...]
--- OUTSIDE RECORDS SUMMARY | ~2019-06-25 | XMS | Encounter Summary ---
Demographics + + + | Address | [address] | | | [place] [address] | + + + | Home Phone [...] [place], [place] | | | | | [address] | | + + + + + | Ellie Vang | ECON | Unknown | | + + + + + Care Team Providers + +------+ + | Care Bleach Packer Name | Role | Phone | [...] | | | | | essential | [address] | [address] | | | | | hypertension | [address], | Ave | | | | | Type II or | [address] | [place], [place] | | | | | unspecified | [place] | [address] | | | | | type | [address] | Phone: | | | | | diabetes | Phone: | [phone] | | | | | mellitus | [phone] | Fax: | | | | | without | Fax: | [phone] | | | | | mention of | [phone] | | | | | | complication [...] | 2013 | Visit | Preventive at [facility] | [address] | mellitus (HCC) | | | | [address] | Ave [place], [place] | (Primary Dx) | | | | Mailcode: CH7 | [address] | | | | | [facility] | [phone] | | | | | and [address], | | | | | | Building [address] | | | | | | [place], [place] | | | | | | [address] | | | | | | [phone] | | | +--------+---------+ + + + [...] Wi ll discuss with Dr. Brian and control panel operator crude unit her best strategies for meeting weight loss [...] Rd | | | | | | [place], [place] | | | | | | [address] | | | | | | [phone] | | | | | | | | +--------+ + + + + | 08/19/ | Surgery | Surgery | Chilo, | OPEN VENTRAL HERNIA | | 2019 | | | MD [address] | REPAIR WITH | | | | | [address] | BIOLOGICAL MESH | | | | | [place], [place] | | | | | | [address] | | | | | | [phone] | | | | | | | | +--------+ + + + + | 09/15/ | Office | Cardiology | Randell Franks, | | | 2020 | Visit | | [address] | | | | | | [place], [place] | | | | | | [address] | | | | | | [phone] | | | | | | | [...] [facility] | [address] | [place] [address] | | | SERVICES, SPECIAL | PARK [...]
--- OUTSIDE RECORDS SUMMARY | ~2019-06-25 | XMS | Encounter Summary ---
Demographics + + + | Address | [address] | | | [place] [address] | + + + | Home Phone [...] + | Katalina Padilla | ECON | [address] | | | | | [place], [place] | | | | | [address] | | + + + + + | Ellie Vang | ECON | Unknown | | + + + + + Care Team Providers + +------+ + | Care Material Checker Name | Role | Phone | + +------+ + | Fadi Goodrich DO | PCP | | + +------+ + Encounter Details +--------+ + + + + | Date | Type | Department | Care Team | Description | +--------+ + + + + | 11/06/ | Abstract | Digestive Health | Shereen Georges, | | | 2015 | | Center at [facility] [address] | ACNP [address] | | | | | [address] | Ave [place], [place] | | | | | Mailcode: [place] | [address] | | | | | for Health and | | | | | | [facility] 2 | | | | | | [facility] [place] | | | | | | [address] | | | | | | | [...] Rd | | | | | | [place], [place] | | | | | | [address] | | | | | | [phone] | | | | | | | | +--------+ + + + + | 08/19/ | Surgery | Surgery | Chilo, | OPEN VENTRAL HERNIA | | 2019 | | | MD Jorje [address] | REPAIR WITH | | | | | [address] | BIOLOGICAL MESH | | | | | [place], [place] | | | | | | [address] | | | | | | [phone] | | | | | | | | +--------+ + + + + | 09/15/ | Office | Cardiology | Randell Franks, | | | 2019 | Visit | | MD [address] | | | | | | Ave [place], [place] | | | | | | [address] | | | | | | [phone] | | | | | | | | +--------+ + + + + documented as of this encounter Visit Diagnoses Not on filedocumented in this encounter"
--- OUTSIDE RECORDS SUMMARY | ~2019-06-25 | XMS | Encounter Summary ---
Demographics + + + | Address | [address] | | | [place] [address] | + + + | Home Phone [...] + | Katalina Padilla | ECON | [address] | | | | | [place], [place] | | | | | [address] | | + + + + + | Ellie Vang | ECON | Unknown | | + + + + + Care Team Providers + +------+ + | Care Observer Helper Name | Role | Phone | + +------+ + | Fadi Goodrich DO | PCP | | + +------+ + Encounter Details +--------+ + + + + | Date | Type | Department | Care Team | Description | +--------+ + + + + | 06/17/ | Abstract | Digestive Health | Shereen Georges, | | | 2012 | | Center at [facility] [address] | ACNP [address] | | | | | [address] | Ave [place], [place] | | | | | Mailcode: [place] | [address] | | | | | for Health and | | | | | | [facility] 2 | | | | | | [facility] [place] | | | | | | [address] | | | | | | | [...] Rd | | | | | | [place], [place] | | | | | | [address] | | | | | | [phone] | | | | | | | | +--------+ + + + + | 08/19/ | Surgery | Surgery | Chilo, | OPEN VENTRAL HERNIA | | 2019 | | | MD Jorje [address] | REPAIR WITH | | | | | [address] | BIOLOGICAL MESH | | | | | [place], [place] | | | | | | [address] | | | | | | [phone] | | | | | | | | +--------+ + + + + | 09/15/ | Office | Cardiology | Randell Franks, | | | 2019 | Visit | | [address] | | | | | | [place] [facility] [place] | | | | | | [address] | | | | | | [phone] | | | | | | | | +--------+ + + + + documented as of this encounter Visit Diagnoses Not on filedocumented in this encounter"
--- OUTSIDE RECORDS SUMMARY | ~2019-06-25 | XMS | Encounter Summary ---
Demographics + + + | Address | [address] | | | [place] [address] | + + + | Home Phone [...] [place], [place] | | | | | [address] | | + + + + + | Ellie Vang | ECON | Unknown | | + + + + + Care Team Providers + +------+ + | Care Controls Design Engineer Name | Role | Phone [...] | | | 2012 | Event | [facility] | [place] | | | | | Admitting Desk | | | | | | Located on the 9th | | | | | | floor [address] | | | | | | [address] | | | | | | [place], [place] | | | | | | [address] | | | +--------+ + + + [...] | | | | | [place], [place] | | | | | | [address] | | | | | | [phone] | | | | | | | | +--------+ + + + + | 08/19/ | Surgery | Surgery | Chilo, | OPEN VENTRAL HERNIA | | 2019 | | | MD Jorje [address] | REPAIR WITH | | | | | [address] | BIOLOGICAL MESH | | | | | [place], [place] | | | | | | [address] | | | | | | [phone] | | | | | | | | +--------+ + + + + | 09/15/ | Office | Cardiology | Randell Franks, | | | 2019 | Visit | | [address] | | | | | | Ave [place], [place] | | | | | | [address] | | | | | | [phone] | | | | | | | | +--------+ + + + + documented as of this encounter Visit Diagnoses Not on filedocumented in this encounter Administered Medications + +--------+ +--------+------+------+ | Medication Order | LANEY | Action | Dose | Rate | [...]
--- OUTSIDE RECORDS SUMMARY | ~2019-06-25 | XMS | Encounter Summary ---
Demographics + + + | Address | [address] | | | [place] [address] | + + + | Home Phone [...] + | Katalina Padilla | ECON | [address] | | | | | [place], [place] | | | | | [address] | | + + + + + | Ellie Vang | ECON | Unknown | | + + + + + Care Team Providers + +------+ + | Care Wildlife Control Operator Name | Role | Phone | [...] Medical Records | | 2013 | | [place] at [facility] [address] | [address] | Review ([facility] - | | | | [address] | [address] | OUTSIDE RECORDS) | | | | Mailcode: [place] | [place], [place] | | | | | [facility] and | [address] | | | | | [place] [address] | [phone] | | | | | [place], [place] | | | | | | [address] | | | | | | [phone] | | | +--------+ + + + [...] [place] | | | | | | [address] | | | | | | [phone] | | | | | | | | +--------+ + + + + | 08/19/ | Surgery | Surgery | Chilo, | OPEN VENTRAL HERNIA | | 2019 | | | MD [address] | REPAIR WITH | | | | | [address] | BIOLOGICAL MESH | | | | | [place], [place] | | | | | | [address] | | | | | | [phone] | | | | | | | | +--------+ + + + + | 09/15/ | Office | Cardiology | Randell Franks, | | | 2020 | Visit | | [address] | | | | | | [place], [place] | | | | | | [address] | | | | | | [phone] | | | | | | | | +--------+ + + + + documented as of this encounter Visit Diagnoses Not on filedocumented in this encounter"
--- OUTSIDE RECORDS SUMMARY | ~2019-06-25 | XMS | Encounter Summary ---
Demographics + + + | Address | [address] | | | [place] [address] | + + + | Home Phone [...] [place], [place] | | | | | [address] | | + + + + + | Ellie Vang | ECON | Unknown | | + + + + + Care Team Providers + +------+ + | Care Expansion Joint Finisher Name | Role | Phone | [...] | | | | Surgery at [facility] [address] | [place], [place] | | | | | [address] | [address] | | | | | Mailcode: [facility] | [phone] | | | | | [facility] | | | | | | and Healing, | | | | | | Building [address], | | | | | | Floor [place], [place] | | | | | | [address] | | | | | | [phone] | | | +--------+---------+ + + + [...] [facility] Cholecyst[facility], laparoscopic Allergies Allergen Reactions Amoxicillin [...] 50 mg by mouth once daily. CALCIUM CRB&VGP-H8-HWV40-GENIS ORAL Take 2 tablets by mouth two [...] 2020 | Encounter | | MD Jorje [address] | | | | | | [address] | | | | | | [place], [place] | | | | | | [address] | | | | | | [phone] | | | | | | | | +--------+ + + + + | 08/19/ | Surgery | Surgery | Chilo, | OPEN VENTRAL HERNIA | | 2019 | | | MD Jorje [address] | REPAIR WITH | | | | | [address] | BIOLOGICAL MESH | | | | | [place], [place] | | | | | | [address] | | | | | | [phone] | | | | | | | | +--------+ + + + + | 09/15/ | Office | Cardiology | Randell Franks, | | | 2019 | Visit | | [address] | | | | | | Ave [place], [place] | | | | | | [address] | | | | | | [phone] | | | | | | | | +--------+ + + + + documented as of this encounter Visit Diagnoses + + | Diagnosis | + + | Excess skin of abdomen - Primary Unspecified hypertrophic and atrophic condition of | | skin | + + documented in this encounter
--- OUTSIDE RECORDS SUMMARY | ~2019-06-25 | XMS | Encounter Summary ---
Demographics + + + | Address | [address] | | | [place] [address] | + + + | Home Phone [...] | Author | [facility] | | | and Jeffana | + + + | Organization | [facility] | | | and [...] Team Providers + +------+ + | Care Elevator Repairer Apprentice Name | Role | Phone | + +------+ + PCP | Unavailable | + +------+ + Encounter Details +--------+ + + + + | Date | Type | Department | Care Team | Description | +--------+ + + + + | 11/04/ | Orders Only | [facility] | Conversion | | | 2017 | | NEPHROLOGY JESUS | Transaction, | | | | | [address] | Provider Unknown | | | | | [address] [address] | | | | | | [address] | (Fax) | | | | | [phone] | | | +--------+ + + + [...]
--- OUTSIDE RECORDS SUMMARY | ~2019-06-25 | XMS | Encounter Summary ---
Demographics + + + | Address | [address] | | | [place] [address] | + + + | Home Phone [...] [place], [place] | | | | | [address] | | + + + + + | Ellie Vang | ECON | Unknown | | + + + + + Care Team Providers + +------+ + | Care Director Card Name | Role | Phone | + [...] | | | | and over, | [place], [place] | [facility] | | | | | adult (HCC) | [address] | for Health | | | | | Severe | Phone: | and Healing, | | | | | muscle | | Building [address], | | | | | deconditioni | Fax: | [address] Floor | | | | | ng | [phone] | [place], [place] | | | | | Procedures | | [address] | | | | | PHYSICAL | | Phone: | | | | | THERAPY | | [phone] | | | | | REFERRAL | | Fax: | | | | | | | [phone] | +--------+--------+ + + + + Encounter Details +--------+ + + + + | Date | Type | Department | Care Team | Description | +--------+ + + + + | 02/02/ | Health Care Marketing Manager | Digestive Health | Shereen Georges, | Morbid obesity with | | 2017 | | Center at [facility] [address] | ACNP [address] | BMI of 70 and over, | | | | [address] | Ave [facility] [place] | adult (HCC) (Primary | | | | Mailcode: Center | [address] | Dx); Severe muscle | | | | for Health and | | deconditioning | | | | Healing, [address] | | | | | | [place], [place] | | | | | | [address] | | | | | | | [...] Rd | | | | | | [place], [place] | | | | | | [address] | | | | | | [phone] | | | | | | | | +--------+ + + + + | 08/19/ | Surgery | Surgery | Chilo, | OPEN VENTRAL HERNIA | | 2019 | | | MD [address] | REPAIR WITH | | | | | [address] | BIOLOGICAL MESH | | | | | [place], [place] | | | | | | [address] | | | | | | [phone] | | | | | | | | +--------+ + + + + | 09/15/ | Office | Cardiology | Randell Franks, | | | 2019 | Visit | | MD [address] | | | | | | [place], [place] | | | | | | [address] | | | | | | [phone] | | | | | | | [...]
--- OUTSIDE RECORDS SUMMARY | ~2019-06-25 | XMS | Encounter Summary ---
Demographics + + + | Address | [address] | | | [place] [address] | + + + | Home Phone [...] [place], [place] | | | | | [address] | | + + + + + | Ellie Vang | ECON | Unknown | | + + + + + Care Team Providers + +------+ + | Care Space Systems Operations Craftsman Name | Role | Phone | + [...] [facility] [address] | MD [address] | | | | | [address] | [facility] | | | | | Mailcode: Center | [place], [place] | | | | | [facility] and | [address] | | | | | [facility], [facility] 2 | [phone] | | | | | [place], [place] | | | | | | [address] | | | | | | [phone] | | | +--------+ + + + [...] Rd | | | | | | [place], [place] | | | | | | [address] | | | | | | [phone] | | | | | | | [...] [place] | | | | | | [address] | | | | | | [phone] | | | | | | | | +--------+ + + + + | 09/15/ | Office | Cardiology | Randell Franks, | | | 2019 | Visit | | [address] | | | | | | [place] [facility] [place] | | | | | | [address] | | | | | | [phone] | | | | | | | | +--------+ + + + + documented as of this encounter Visit Diagnoses Not on filedocumented in this encounter"
--- OUTSIDE RECORDS SUMMARY | ~2019-06-25 | XMS | Encounter Summary ---
Demographics + + + | Address | [address] | | | [place] [address] | + + + | Home Phone [...] [place], [place] | | | | | [address] | | + + + + + | Ellie Vang | ECON | Unknown | | + + + + + Care Team Providers + +------+ + | Care Primary Class Teacher Name | Role | Phone | [...] Rd | | | | | | [place], [place] | | | | | | [address] | | | | | | [phone] | | | | | | | | +--------+ + + + + | 08/19/ | Surgery | Surgery | Chilo, | OPEN VENTRAL HERNIA | | 2019 | | | MD Jorje [address] | REPAIR WITH | | | | | [address] | BIOLOGICAL MESH | | | | | [place], [place] | | | | | | [address] | | | | | | [phone] | | | | | | | | +--------+ + + + + | 09/15/ | Office | Cardiology | Randell Franks, | | | 2019 | Visit | | [address] | | | | | | [place], [place] | | | | | | [address] | | | | | | [phone] | | | | | | | | +--------+ + + + + documented as of this encounter Visit Diagnoses Not on filedocumented in this encounter"
--- OUTSIDE RECORDS SUMMARY | ~2019-06-25 | XMS | Encounter Summary ---
Demographics + + + | Address | [address] | | | [place] [address] | + + + | Home Phone [...] [place], [place] | | | | | [address] | | + + + + + | Ellie Vang | ECON | Unknown | | + + + + + Care Team Providers + +------+ + | Care Job Placement Specialist Name | Role | Phone | [...] | | | | | essential | [address] | [address] | | | | | hypertension | [address], | Ave | | | | | Type II or | [address] | [place], [place] | | | | | unspecified | [place], [place] | [address] | | | | | type | [address] | Phone: | | | | | diabetes | Phone: | [phone] | | | | | mellitus | [phone] | Fax: | | | | | without | Fax: | [phone] | | | | | mention of | [phone] | | | | | | complication [...] | Preventive at [facility] | [address] | mellitus (HCC) | | | | [address] | Ave [facility] [place] | (Primary Dx); | | | | Mailcode: [facility] | [address] | Migraine headache | | | | [facility] | [phone] | | | | | and [place], | | | | | | [address] | | | | | | [place], [place] | | | | | | [address] | | | | | | [phone] | | | +--------+---------+ + + + [...] she is hypothyroid and put her on [place] Thyroid hormone replacement therapy. Her heart rate [...] Rd | | | | | | [place], [place] | | | | | | [address] | | | | | | [phone] | | | | | | | [...] [place] | | | | | | [address] | | | | | | [phone] | | | | | | | | +--------+ + + + + | 09/15/ | Office | Cardiology | Randell Franks, | | | 2019 | Visit | | [address] | | | | | | [place], [place] | | | | | | [address] | | | | | | [phone] | | | | | | | [...] [facility] | [address] | [place] [address] | | | SERVICES, SPECIAL | PARK [...]
--- OUTSIDE RECORDS SUMMARY | ~2019-06-25 | XMS | Clinical Summary ---
Demographics + + + | Address | [address] | | | [place] [address] | + + + | Home Phone | | + + + | Preferred Language | Unknown | + + + | Marital Status | | + + + | Mandaen Affiliation | Unknown | + + + | Race | Unknown | + + + | Ethnic Group | Unknown | + + + Author + + + | Author | [facility] (Historical as of | | | 03-12-19) | + + + | Organization | [facility] (Historical as of | | | 03-12-19) [...] Team Providers + +------+ + | Care Brooch Maker Novelty Name | Role | Phone [...] | | | Activ | | (DRISDOL) [id number] | mouth twice a week. | | [...] | obesity, she is enrolled [facility] bariatric program. She has [...] obesityPickwickian syndrome Recent | | admission to [facility] for 100lb weight | | gain- DC on diuresis on 03/06/2016- she feel improvedShe was on | | Metolazone and Torsemide prior to hospitalization- both have | | better bioavailability than lasix in gut edema but she retained | | 100lbs - how ever she is currently on only Torsemide 100mg Q12hrs | | started in [place] and her weight been stable sinceShe has no | | other complaints.She is pending to see NephrologistCiriloo | | 02/16/2016([facility])- Normal LV systolic function, mildly | [...] +------+-------+ + | MEDICAID | [place] | [id number] | | | [address] | | | [place] | | | | [place] | | | [place] | | | | [address] | | | WARRANTY MANAGER | | | | | + +--------+ [...] | | | mireya | | | [address] | [address] | + +--------+ +--------+ + +
--- OUTSIDE RECORDS SUMMARY | ~2019-06-25 | XMS | Encounter Summary ---
Demographics + + + | Address | [address] | | | [place] [address] | + + + | Home Phone [...] [facility] | | | and Jeffana | + + + | Organization | [facility] | | | and Jeffana | + + + | Address | Unknown | + + + | Phone | Unavailable | + + + Support + + +---------+ + | Name | Relationship | Address | Phone | + + +---------+ + | Katlaina Padilla | ECON | Unknown | Unavailable [...] Closed | | Radiology | Diagnoses | [place], | [facility] | | | | | Deep vein | Dharmesh | Intra Op [address] | | | | | thrombosis | MD Natan | [address] | | | | | (DVT) of | [address] | [place], [place] | | | | | left lower | [address] | [address] | | | | | extremity, | [address] | Phone: | | | | | unspecified | [place], [place] | [phone] | | | | | chronicity, | [address] | Fax: | | | | | unspecified | Phone: | [phone] | | | | | vein (HCC) | [phone] | | | | | | Procedures | Fax: | | | | | | IR Removal | [phone] | | | | | | Fibrin [...] + + | 06/14/ | Telephone | [facility] | Dharmesh Fierro, | Procedure | | 2019 | | INTERVENTIONAL | RN | | | | | RADIOLOGY [address] | | | | | | [address] | | | | | | [place] | | | | | | [address] | | | | | | [phone] | | | +--------+ + + + [...] Not on filedocumented as of this encounter Results IR Removal [...]
--- OUTSIDE RECORDS SUMMARY | ~2019-06-25 | XMS | Encounter Summary ---
Demographics + + + | Address | [address] | | | [place] [address] | + + + | Home Phone [...] [place], [place] | | | | | [address] | | + + + + + | Ellie Vang | ECON | Unknown | | + + + + + Care Team Providers + +------+ + | Care Cigarette Catcher Name | Role | Phone | + +------+ + | Fadi Goodrich DO | PCP | | + +------+ + Encounter Details +--------+ + + + + | Date | Type | Department | Care Team | Description | +--------+ + + + + | 12/05/ | Abstract | Cardiology | Randell Franks, | | | 2016 | | Preventive at [facility] | MD [address] | | | | | [address] | Ave [place], [place] | | | | | Mailcode: [facility] | [address] | | | | | [facility] | [phone] | | | | | and Healing, | | | | | | [address] | | | | | | [place], [place] | | | | | | [address] | | | | | | [phone] | | | +--------+ + + + [...] Rd | | | | | | [place], [place] | | | | | | [address] | | | | | | [phone] | | | | | | | | +--------+ + + + + | 08/19/ | Surgery | Surgery | Chilo, | OPEN VENTRAL HERNIA | | 2019 | | | MD Jorje [address] | REPAIR WITH | | | | | [address] | BIOLOGICAL MESH | | | | | [place], [place] | | | | | | [address] | | | | | | [phone] | | | | | | | | +--------+ + + + + | 09/15/ | Office | Cardiology | Randell Franks, | | | 2019 | Visit | | MD [address] | | | | | | [address] [place], [place] | | | | | | [address] | | | | | | [phone] | | | | | | | | +--------+ + + + + documented as of this encounter Visit Diagnoses Not on filedocumented in this encounter"
--- OUTSIDE RECORDS SUMMARY | ~2019-06-25 | XMS | Encounter Summary ---
Demographics + + + | Address | [address] | | | [place] [address] | + + + | Home Phone [...] [place], [place] | | | | | [address] | | + + + + + | Ellie Vang | ECON | Unknown | | + + + + + Care Team Providers + +------+ + | Care Service Attendant Name | Role | Phone | [...] NISH EN | | 2017 | | [facility] | MD [address] | Y GASTRIC BYPASS | | | | Admitting Desk | [place], [place] | | | | | Located on the | [address] | | | | | floor [address] [facility] | [phone] | | | | | [address] | | | | | | [place], [place] | | | | | | [address] | | | +--------+---------+ + + + [...] Gavin ACNP - 03/03/2018 9:49 AM PDT [facility] RED SURGERY INPATIENT DISCHARGE SUMMARY Author: KAIN [...] at minimum. 5. Follow with PCP for Fitting Room Inspector within 1 - 2 weeks of discharge [...] mg by mouth two times daily. CALCIUM [id number]-GENIS ORAL Take 2 tablets by mouth two [...] yogurt or kefir. Zaria's Yogurt or Kefir, VivaRayfield Yogurt, and Teakn i Maori Yogurt are common brands with beneficial probiotics. [...] are available over the counter at most [facility]. Nausea/Vomiting/Difficulty Swallowing Nausea/Vomiting/Difficulty swallowing: Could [...] hours per your instructions. Some medications, like [place], have Tylenol in it. Make sure you [...] (PCP) as this clinic does not [facility]. When to [...] hours by calling the surgery office at [phone]. - After hours, weekends and holidays, you may call the hospital treatment plant operator at [phone] an d have the events and promotions assistant Red Surgery Team paged. OTHER DISCHARGE ORDERS [...] at minimum. 5. Follow with PCP for Fitting Room Inspector within 1 - 2 weeks of discharge [...] Department Dept Phone Center 03/10/2018 1:30 PM [facility] at [facility] 6th Floor [phone] FO OD AND NUT 03/10/2018 3:05 PM Ronna Clarke Digestive [facility] at [facility] 6th Floor [phone] [facility] 04/01/2018 10:30 AM [facility] at [facility] 6th Floor [phone] FO OD AND NUT 04/01/2018 11:00 AM Ion Castanon Digestive [facility] at [facility] 6th Floor [phone] [facility] 05/27/2018 2:30 PM [facility] at [facility] 6th Floor [phone] FO OD AND NUT 05/27/2018 3:05 PM [facility] 6th Floor [phone] [facility] 05/27/2018 4:30 PM Demar [facility] at [facility] 15th Floor [phone] Comprehensiv 06/04/2018 10:35 AM Randell Franks Cardiology Preventive at [facility] [phone] Cardiology Discharging Physician: KAIN Agee Attending Physician: Ion Castanon MD [facility] Red Surgery Pager# [phone] 9:50 AM 03/03/2018 documented in this enco [...] | | 0 | | | | [id number]-GEN | mouth two times | | | [...] date of discharge 03/03/18 PARTHA Calixto MS3 [facility] emarcus Alas MD - 03/02 [...] for care ride home (pt lives in [place]) Demarcus Alas M.D. General Surgery Resident PGY-1 Pager: [phone] Ion Ferrari MD - 10:00 AM [address] [...] [address] | | | | | | [place], [place] | | | | | | [address] | | | | | | [phone] | | | | | | | | +--------+ + + + + | 08/19/ | Surgery | Surgery | Chilo, | OPEN VENTRAL HERNIA | | 2019 | | | MD Jorje [address] | REPAIR WITH | | | | | [address] | BIOLOGICAL MESH | | | | | [place], [place] | | | | | | [address] | | | | | | [phone] | | | | | | | | +--------+ + + + + | 09/15/ | Office | Cardiology | Randell Franks, | | | 2019 | Visit | | [address] | | | | | | [facility] [place] | | | | | | [address] | | | | | | [phone] | | | | | | | [...] POC | | PDT | over, adult ([facility]) | results section. | + +--------+ + + + | CAPILLARY BLOOD | Routin | 03/03/2018 | Morbid obesity | Results for this | | GLUCOSE (NO CHG), | e | 7:54 AM | with BMI of 70 and | procedure are in the | | POC | | PDT | over, adult ([facility]) | results section. | + +--------+ + + + | CAPILLARY BLOOD | Routin | 03/03/2018 | Morbid obesity | Results for this | | GLUCOSE (NO CHG), | e | 6:28 AM | with BMI of 70 and | procedure are in the | | POC | | PDT | over, adult ([facility]) | results section. | + +--------+ + + + | CAPILLARY BLOOD | Routin | 03/02/2018 | Morbid obesity | Results for this | | GLUCOSE (NO CHG), | e | 9:17 PM | with BMI of 70 and | procedure are in the | | POC | | PDT | over, adult ([facility]) | results section. | + +--------+ + + + | CAPILLARY BLOOD | Routin | 03/02/2018 | Morbid obesity | Results for this | | GLUCOSE (NO CHG), | e | 6:50 PM | with BMI of 70 and | procedure are in the | | POC | | PDT | over, adult ([facility]) | results section. | + +--------+ + + + | CAPILLARY BLOOD | Routin | 03/02/2018 | Morbid obesity | Results for this | | GLUCOSE (NO CHG), | e | 3:46 PM | with BMI of 70 and | procedure are in the | | POC | | PDT | over, adult ([facility]) | results section. | + +--------+ + + + | CAPILLARY BLOOD | Routin | 03/02/2018 | Morbid obesity | Results for this | | GLUCOSE (NO CHG), | e | 2:36 PM | with BMI of 70 and | procedure are in the | | POC | | PDT | over, adult ([facility]) | results section. | + +--------+ + + + | CAPILLARY BLOOD | Routin | 03/02/2018 | Morbid obesity | Results for this | | GLUCOSE (NO CHG), | e | 1:33 PM | with BMI of 70 and | procedure are in the | | POC | | PDT | over, adult ([facility]) | results section. | + +--------+ + + + | CAPILLARY BLOOD | Routin | 03/02/2018 | Morbid obesity | Results for this | | GLUCOSE (NO CHG), | e | 11:36 AM | with BMI of 70 and | procedure are in the | | POC | | PDT | over, adult ([facility]) | results section. | + +--------+ + + + | CAPILLARY BLOOD | Routin | 03/02/2018 | Morbid obesity | Results for this | | GLUCOSE (NO CHG), | e | 10:32 AM | with BMI of 70 and | procedure are in the | | POC | | PDT | over, adult ([facility]) | results section. | + +--------+ + + + | CAPILLARY BLOOD | Routin | 03/02/2018 | Morbid obesity | Results for this | | GLUCOSE (NO CHG), | e | 9:23 AM | with BMI of 70 and | procedure are in the | | POC | | PDT | over, adult ([facility]) | results section. | + +--------+ + + + | CAPILLARY BLOOD | Routin | 03/02/2018 | Morbid obesity | Results for this | | GLUCOSE (NO CHG), | e | 8:36 AM | with BMI of 70 and | procedure are in the | | POC | | PDT | over, adult ([facility]) | results section. | + +--------+ + + + | CAPILLARY BLOOD | Routin | 03/02/2018 | Morbid obesity | Results for this | | GLUCOSE (NO CHG), | e | 7:35 AM | with BMI of 70 and | procedure are in the | | POC | | PDT | over, adult ([facility]) | results section. | + +--------+ + + + | CAPILLARY BLOOD | Routin | 03/02/2018 | Morbid obesity | Results for this | | GLUCOSE (NO CHG), | e | 6:33 AM | with BMI of 70 and | procedure are in the | | POC | | PDT | over, adult ([facility]) | results section. | + +--------+ + + + | CAPILLARY BLOOD | Routin | 03/02/2018 | Morbid obesity | Results for this | | GLUCOSE (NO CHG), | e | 5:28 AM | with BMI of 70 and | procedure are in the | | POC | | PDT | over, adult ([facility]) | results section. | + +--------+ + + + | CAPILLARY BLOOD | Routin | 03/02/2018 | Morbid obesity | Results for this | | GLUCOSE (NO CHG), | e | 4:36 AM | with BMI of 70 and | procedure are in the | | POC | | PDT | over, adult ([facility]) | results section. | + +--------+ + + + | CAPILLARY BLOOD | Routin | 03/02/2018 | Morbid obesity | Results for this | | GLUCOSE (NO CHG), | e | 2:46 AM | with BMI of 70 and | procedure are in the | | POC | | PDT | over, adult ([facility]) | results section. | + +--------+ + + + | CAPILLARY BLOOD | Routin | 03/02/2018 | Morbid obesity | Results for this | | GLUCOSE (NO CHG), | e | 12:32 AM | with BMI of 70 and | procedure are in the | | POC | | PDT | over, adult ([facility]) | results section. | + +--------+ + + + | CAPILLARY BLOOD | Routin | 03/01/2018 | Morbid obesity | Results for this | | GLUCOSE (NO CHG), | e | 10:31 PM | with BMI of 70 and | procedure are in the | | POC | | PDT | over, adult ([facility]) | results section. | + +--------+ + + + | CAPILLARY BLOOD | Routin | 03/01/2018 | Morbid obesity | Results for this | | GLUCOSE (NO CHG), | e | 8:21 PM | with BMI of 70 and | procedure are in the | | POC | | PDT | over, adult ([facility]) | results section. | + [...] POC | | PDT | over, adult ([facility]) | results section. | + +--------+ + + + | CAPILLARY BLOOD | Routin | 03/01/2018 | Morbid obesity | Results for this | | GLUCOSE (NO CHG), | e | 3:31 PM | with BMI of 70 and | procedure are in the | | POC | | PDT | over, adult ([facility]) | results section. | + +--------+ + + + | CAPILLARY BLOOD | Routin | 03/01/2018 | Morbid obesity | Results for this | | GLUCOSE (NO CHG), | e | 3:29 PM | with BMI of 70 and | procedure are in the | | POC | | PDT | over, adult ([facility]) | results section. | + +--------+ + + + | CAPILLARY BLOOD | Routin | 03/01/2018 | Morbid obesity | Results for this | | GLUCOSE (NO CHG), | e | 2:30 PM | with BMI of 70 and | procedure are in the | | POC | | PDT | over, adult ([facility]) | results section. | + +--------+ + + + | CAPILLARY BLOOD | Routin | 03/01/2018 | Morbid obesity | Results for this | | GLUCOSE (NO CHG), | e | 1:35 PM | with BMI of 70 and | procedure are in the | | POC | | PDT | over, adult ([facility]) | results section. | + +--------+ + + + | CAPILLARY BLOOD | Routin | 03/01/2018 | Morbid obesity | Results for this | | GLUCOSE (NO CHG), | e | 12:16 PM | with BMI of 70 and | procedure are in the | | POC | | PDT | over, adult ([facility]) | results section. | + [...] POC | | PDT | over, adult ([facility]) | results section. | + +--------+ + + + | LAPAROSCOPIC | Electi | 03/01/2018 | Morbid obesity | | | NISH-EN-Y GASTRIC | ve | 8:31 AM | ([facility]) | | | BYPASS | [...] AMES | [address] | [place], [place] | | | [facility] | [address] | [address] | | | TESTS | | | [...] AMES | [address] | [place], [place] | | | [facility] | [facility] | [address] | | | TESTS | | | [...] YAKOVAM | [address] | [place], [place] | | | [facility] | [facility] | [address] | | | TESTS | | | [...] (H) | 70 - 99 mg/dL | [facility] - | | | GLUCOSE, | [...] YAKOVAM | [address] | [place], [place] | | | [facility] | [address] | [address] | | | TESTS | | | [...] KWAKU | [address] | [place], [place] | | | [facility] | [facility] | [address] | | | TESTS | | | [...] YAKOVAM | [address] | [place], [place] | | | [facility] | [facility] | [address] | | | TESTS | | | [...] (H) | 70 - 99 mg/dL | [facility] - | | | GLUCOSE, | [...] KWAKU | [address] | [place], [place] | | | [facility] | [address] | [address] | | | TESTS | | | [...] KWAKU | [address] | [place], [place] | | | [facility] | [facility] | [address] | | | TESTS | | | [...] YAKOVAM | [address] | [place], [place] | | | [facility] | [facility] | [address] | | | TESTS | | | [...] (H) | 70 - 99 mg/dL | [facility] - | | | GLUCOSE, | [...] KWAKU | [address] | [place], [place] | | | [facility] | [address] | [address] | | | TESTS | | | [...] KWAKU | [address] | [place], [place] | | | [facility] | [facility] | [address] | | | TESTS | | | [...] KWAKU | [address] | [place], [place] | | | [facility] | [facility] | [address] | | | TESTS | | | [...] YAKOVAM | [address] | [place], [place] | | | [facility] | [address] | [address] | | | TESTS | | | [...] AMES | [address] | [place], [place] | | | [facility] | [facility] | [address] | | | TESTS | | | [...] - MARQUAM | [address] | [place], [place] | | | [facility] | [facility] | [address] | | | TESTS | | | [...] MARQUAM | [address] | [place], [place] | | | [facility] | [facility] | [address] | | | TESTS | | | [...] AMES | [address] | [place], [place] | | | [facility] | [address] | [address] | | | TESTS | | | [...] KWAKU | [address] | [place], [place] | | | [facility] | [facility] | [address] | | | TESTS | | | [...] MARQUAM | [address] | [place], [place] | | | [facility] | [facility] | [address] | | | TESTS | | | [...] AMES | [address] | [place], [place] | | | [facility] | [address] | [address] | | | TESTS | | | [...] MARQUAM | [address] | [place], [place] | | | [facility] | [address] | [address] | | | TESTS | | | [...] (H) | 70 - 99 mg/dL | [facility] - | | | GLUCOSE, | [...] YAKOVAM | [address] | [place], [place] | | | [facility] | [address] | [address] | | | TESTS | | | [...] AMES | [address] | [place], [place] | | | [facility] | [facility] | [address] | | | TESTS | | | [...] MARQUAM | [address] | [place], [place] | | | [facility] | [address] | [address] | | | TESTS | | | [...] (H) | 70 - 99 mg/dL | [facility] - | | | GLUCOSE, | [...] YAKOVAM | [address] | [place], [place] | | | [facility] | [address] | [address] | | | TESTS | | | [...] AMES | [address] | [place], [place] | | | [facility] | [facility] | [address] | | | TESTS | | | | + + + + + EGD (ESOPHAGOGASTRODUODENOSCOPY) (03/01/2018 11:21 AM PDT) + + + | Narrative | Performed At | + + + | Ion Castanon MD 03/01/2018 12:25 PM Date of Procedure: | | | 03/01/18 Primary Surgeon: Ion Castanon MD Co Surgeon or | | | diet assistant: Eldon Gonzalez MD, Chief Resident Alexx [...] The jejunum was divided with 60 mm [place] stapler with white | | | load [...] created in each limb and a 60mm [place] stapler | | | with white load was fired to create a [id number] | | | jejunojejunostomy. The anastamosis was confirmed to be widely | | | patent and hemostatic. The common enterotomy was closed by placing | | | 2 stay sutures along the enterotomy for retraction and firing an | | | [place] 60mm stapler with white load across the [...] | | | was entered. The 60mm [place] stapler with blue load was placed | [...] blue load of the 60mm stapler. The [place] was then fired | | | longitudinally towards the angle of His to create the gastric pouch, | | | leaving the gastrotomy from foreign body removal, on the pouch. | | | Dissection was performed retrogastric to connect posterior and | | | anterior dissection planes and ensure adequate fundus exclusion. | | | Additional fires of the [place] stapler were performed with blue | | [...] with | | | 5 mm clip citrus picker. A 25mm Orvil was passed transorally by [...] was closed with 60mm | | | [place] stapler with a white load. Medially and [...] was present | | | as my diet assistant for the entire procedure, given the technically | | | challenging nature of this procedure. She assisted in all critical | | | steps of the procedure. Dr. Gonzalez was present for endoscopy at the | | | end of the procedure. Ion Castanon MD, FACS, [facility] | | | Bariatric Surgery | [...] MD Co Surgeon or | | | diet assistant: Eldon Gonzalez MD, Chief Resident Alexx [...] The jejunum was divided with 60 mm [place] stapler with white | | | load [...] created in each limb and a 60mm [place] stapler | | | with white load was fired to create a [id number] | | | jejunojejunostomy. The anastamosis was confirmed to be widely | | | patent and hemostatic. The common enterotomy was closed by placing | | | 2 stay sutures along the enterotomy for retraction and firing an | | | [place] 60mm stapler with white load across the [...] | posterior to the nish limb. [facility] was | | | [...] | | | was entered. The 60mm [place] stapler with blue load was placed | [...] blue load of the 60mm stapler. The [place] was then fired | | | longitudinally towards the angle of His to create the gastric pouch, | | | leaving the gastrotomy from foreign body removal, on the pouch. | | | Dissection was performed retrogastric to connect posterior and | | | anterior dissection planes and ensure adequate fundus exclusion. | | | Additional fires of the [place] stapler were performed with blue | | [...] with | | | 5 mm clip citrus picker. A 25mm Orvil was passed transorally by [...] was closed with 60mm | | | [place] stapler with a white load. Medially and [...] was present | | | as my diet assistant for the entire procedure, given the technically | | | challenging nature of this procedure. She assisted in all critical | | | steps of the procedure. Dr. Gonzalez was present for endoscopy at the | | | end of the procedure. Ion Castanon MD, FACS, [facility] | | | Bariatric Surgery | [...] KWAKU | [address] | [place], [place] | | | [facility] | [address] | [address] | | | TESTS | | | [...]
--- OUTSIDE RECORDS SUMMARY | ~2019-06-25 | XMS | Encounter Summary ---
Demographics + + + | Address | [address] | | | [place] [address] | + + + | Home Phone [...] [place], [place] | | | | | [address] | | + + + + + | Ellie Vang | ECON | Unknown | | + + + + + Care Team Providers + +------+ + | Care Housekeeping/Laundry Name | Role | Phone | + [...] | | | | | | [place] [address] | | | | | | [phone] | | | +--------+ + + + [...] | | | | | | [place], [place] | | | | | | [address] | | | | | | [phone] | | | | | | | | +--------+ + + + + | 08/19/ | Surgery | Surgery | Chilo, | OPEN VENTRAL HERNIA | | 2019 | | | MD Jorje [address] | REPAIR WITH | | | | | [address] | BIOLOGICAL MESH | | | | | [place] | | | | | | [address] | | | | | | [phone] | | | | | | | | +--------+ + + + + | 09/15/ | Office | Cardiology | Randell Franks, | | | 2019 | Visit | | [address] | | | | | | [place] | | | | | | [address] | | | | | | [phone] | | | | | | | | +--------+ + + + + documented as of this encounter Visit Diagnoses Not on filedocumented in this encounter"
--- OUTSIDE RECORDS SUMMARY | ~2019-06-25 | XMS | Encounter Summary ---
Demographics + + + | Address | [address] | | | [place] [address] | + + + | Home Phone | | + + + | Preferred Language | Unknown | + + + | Marital Status | | + + + | Jew Affiliation | Unknown | + + + | Race | Unknown | + + + | Ethnic Group | Unknown | + + + Author + + + | Author | [facility] | | | and Jeffana | + + + | Organization | [facility] [...] Providers + +------+ + | Care Lithographic Retoucher Apprentice Name | Role | Phone | + +------+ + | Jorje Hill | PCP | | + +------+ + Encounter Details +--------+ + + + + | Date | Type | Department | Care Team | Description | +--------+ + + + + | 06/10/ | Telephone | [facility] | [place], | | | 2019 | | INTERVENTIONAL | Mary Ortiz | | | | | RADIOLOGY [address] | Tariff Clerk | | | | | [address] | | | | | | [place], [place] | | | | | | [address] | | | | | | [phone] | | | +--------+ + + + [...]
--- OUTSIDE RECORDS SUMMARY | ~2019-06-25 | XMS | Encounter Summary ---
Demographics + + + | Address | [address] | | | [place] [address] | + + + | Home Phone [...] [place], [place] | | | | | [address] | | + + + + + | Ellie Vang | ECON | Unknown | | + + + + + Care Team Providers + +------+ + | Care Inside Sales Recruiter Name | Role | Phone | [...] | mellitus (HCC) | | | | [place], [place] | | | | | | [address] | | | | | | [phone] | | | +--------+------+ + + + [...] Rd | | | | | | [place], [place] | | | | | | [address] | | | | | | [phone] | | | | | | | | +--------+ + + + + | 08/19/ | Surgery | Surgery | Chilo, | OPEN VENTRAL HERNIA | | 2019 | | | MD Jorje [address] | REPAIR WITH | | | | | [address] | BIOLOGICAL MESH | | | | | [place], [place] | | | | | | [address] | | | | | | [phone] | | | | | | | | +--------+ + + + + | 09/15/ | Office | Cardiology | Randell Franks, | | | 2019 | Visit | | [address] | | | | | | [place], [place] | | | | | | [address] | | | | | | [phone] | | | | | | | [...] A1c | 4.3 - 5.6 % | [facility] | | | A1C | Interpretive | [...] + + + + + | [facility] | [address] | [place] [address] | | | SERVICES, SPECIAL | PARK [...]
--- OUTSIDE RECORDS SUMMARY | ~2019-06-25 | XMS | Encounter Summary ---
Demographics + + + | Address | [address] | | | [place] [address] | + + + | Home Phone [...] [place], [place] | | | | | [address] | | + + + + + | Ellie Vang | ECON | Unknown | | + + + + + Care Team Providers + +------+ + | Care Strand And Binder Controller Name | Role | Phone | [...] from Patient; | | 2017 | | [place] [address] | MD [address] | Postoperative | | | | Ave Mailcode: CH4S | [place], [place] | infection | | | | [facility] | [address] | | | | | and Healing, | [phone] | | | | | [place] [address] [facility] | | | | | | [place], [place] | | | | | | [address] | | | | | | [phone] | | | +--------+ + + + [...] | | | | | | [place], [place] | | | | | | [address] | | | | | | [phone] | | | | | | | | +--------+ + + + + | 08/19/ | Surgery | Surgery | Chilo, | OPEN VENTRAL HERNIA | | 2019 | | | MD Jorje [address] | REPAIR WITH | | | | | [address] | BIOLOGICAL MESH | | | | | [place], [place] | | | | | | [address] | | | | | | [phone] | | | | | | | | +--------+ + + + + | 09/15/ | Office | Cardiology | Randell Franks, | | | 2019 | Visit | | [address] | | | | | | [place], [place] | | | | | | [address] | | | | | | [phone] | | | | | | | | +--------+ + + + + documented as of this encounter Visit Diagnoses Not on filedocumented in this encounter"
--- OUTSIDE RECORDS SUMMARY | ~2019-06-25 | XMS | Encounter Summary ---
Demographics + + + | Address | [address] | | | [place] [address] | + + + | Home Phone [...] Author | [facility] | | | and Jeffana | + + + | Organization | [facility] | | | and Jeffana | [...] Team Providers + +------+ + | Care Pcu Rn Name | Role | Phone | + +------+ + PCP | Unavailable | + +------+ + Encounter Details +--------+ + + + + | Date | Type | Department | Care Team | Description | +--------+ + + + + | 02/14/ | Orders Only | [facility] | Augustine Fu MD | | | 2015 | | NEPHROLOGY [place] | [address] [facility] [address] | | | | | [address] [facility] | [address] [facility], [place] | | | | | [place] | [address] | | | | | [address] | | | | | | [phone] | | | +--------+ + + + [...]
--- OUTSIDE RECORDS SUMMARY | ~2019-06-25 | XMS | Encounter Summary ---
Demographics + + + | Address | [address] | | | [place] [address] | + + + | Home Phone [...] [place], [place] | | | | | [address] | | + + + + + | Ellie Vang | ECON | Unknown | | + + + + + Care Team Providers + +------+ + | Care Assignment Manager Name | Role | Phone | [...] | | [address] | Ave [place], [place] | | | | | Mailcode: [place] | [address] | | | | | for Health and | | | | | | [facility] 2 | | | | | | [facility] [place] | | | | | | [address] | | | | | | | [...] Rd | | | | | | [place], [place] | | | | | | [address] | | | | | | [phone] | | | | | | | | +--------+ + + + + | 08/19/ | Surgery | Surgery | Chilo, | OPEN VENTRAL HERNIA | | 2019 | | | MD J[address] | REPAIR WITH | | | | | [address] | BIOLOGICAL MESH | | | | | [place], [place] | | | | | | [address] | | | | | | [phone] | | | | | | | | +--------+ + + + + | 09/15/ | Office | Cardiology | Randell Franks, | | | 2019 | Visit | | [address] | | | | | | [place] [facility] [place] | | | | | | [address] | | | | | | [phone] | | | | | | | | +--------+ + + + + documented as of this encounter Visit Diagnoses Not on filedocumented in this encounter"
--- OUTSIDE RECORDS SUMMARY | ~2019-06-25 | XMS | Encounter Summary ---
Demographics + + + | Address | [address] | | | [place] [address] | + + + | [...] | Author | [facility] | | | and Jeffana | + + + | Organization | [facility] | | | and [...] Providers + +------+ + | Care Machine Milker Name | Role | Phone | + [...] Closed | | Audiology | Diagnoses | [place], | [place], | | | | | Audio and | Shamar Feliciano MD | MS Sherron | | | | | tymps fax | [address] | CCC-A [address] | | | | | report/no | [address], [address] | [address] [place] | | | | | previous | [place], | [address] [place] | | | | | audiogram | [place] [address] | [place] | | | | | Procedures | Phone: | [phone] Phone: | | | | | OFFICE VISIT | [phone] | [phone] | | | | | REGULAR | Fax: | Fax: | | | | | | [phone] | [phone] | +--------+--------+ + + + + Encounter [...] | | [address] | [facility] [address] | Pressure sensation | | | | [address] | [phone] | in both ears | | | | [place] [address] | | | | | | [phone] | | | +--------+---------+ + + + [...]
--- OUTSIDE RECORDS SUMMARY | ~2019-06-25 | XMS | Encounter Summary ---
Demographics + + + | Address | [address] | | | [place] [address] | + + + | Home Phone [...] [place], [place] | | | | | [address] | | + + + + + | Ellie aVng | ECON | Unknown | | + + + + + Care Team Providers + +------+ + | Care Packaging Assembler Name | Role | Phone | [...] | | 2014 | | Center at [facility] [address] | [address] | (11/03 and 11/06 phone | | | | [address] | Lesly Gutiérrez DUNDE[place], | calls) | | | | Mailcode: [place] | [place] [address] | | | | | for Health and | | | | | | [facility] 2 | | | | | | [place], [place] | | | | | | [address] | | | | | | [phone] | | | +--------+ + + + [...] Rd | | | | | | [place] | | | | | | [address] | | | | | | [phone] | | | | | | | | +--------+ + + + + | 08/19/ | Surgery | Surgery | Chilo, | OPEN VENTRAL HERNIA | | 2020 | | | MD [address] | REPAIR WITH | | | | | [address] | BIOLOGICAL MESH | | | | | [place] | | | | | | [address] | | | | | | [phone] | | | | | | | | +--------+ + + + + | 09/15/ | Office | Cardiology | Randell Franks, | | | 2019 | Visit | | [address] | | | | | | [place], [place] | | | | | | [address] | | | | | | [phone] | | | | | | | | +--------+ + + + + documented as of this encounter Visit Diagnoses Not on filedocumented in this encounter"
--- OUTSIDE RECORDS SUMMARY | ~2019-06-25 | XMS | Encounter Summary ---
Demographics + + + | Address | [address] | | | [place] [address] | + + + | Home Phone [...] [place], [place] | | | | | [address] | | + + + + + | Ellie Vang | ECON | Unknown | | + + + + + Care Team Providers + +------+ + | Care Batting Machine Operator Name | Role | Phone [...] | 2019 | | Preventive at [facility] | [address] | (PHENTERMINE 37.5 mg | | | | [address] | Ave [facility] [place] | ) | | | | Mailcode: [facility] | [address] | | | | | [facility] | [phone] | | | | | and [place], | | | | | | [address] | | | | | | [place], [place] | | | | | | [address] | | | | | | [phone] | | | +--------+--------+ + + + [...] Rd | | | | | | [place], [place] | | | | | | [address] | | | | | | [phone] | | | | | | | | +--------+ + + + + | 08/19/ | Surgery | Surgery | Chilo, | OPEN VENTRAL HERNIA | | 2019 | | | MD Jorje [address] | REPAIR WITH | | | | | [address] | BIOLOGICAL MESH | | | | | [place], [place] | | | | | | [address] | | | | | | [phone] | | | | | | | | +--------+ + + + + | 09/15/ | Office | Cardiology | Randell Franks, | | | 2019 | Visit | | [address] | | | | | | [place], [place] | | | | | | [address] | | | | | | [phone] | | | | | | | | +--------+ + + + + documented as of this encounter Visit Diagnoses Not on filedocumented in this encounter"
--- OUTSIDE RECORDS SUMMARY | ~2019-06-25 | XMS | Encounter Summary ---
Demographics + + + | Address | [address] | | | [place] [address] | + + + | Home Phone [...] [place], [place] | | | | | [address] | | + + + + + | Ellie Vang | ECON | Unknown | | + + + + + Care Team Providers + +------+ + | Care Head Librarian Name | Role | Phone | [...] | | 2013 | | Center at [facility] [address] | [place] [address] | | | | | [address] | [facility] 350 | | | | | Mailcode: Center | [place], [place] | | | | | for Health and | [address] | | | | | [facility] 2 | [phone] | | | | | [place], [place] | | | | | | [address] | | | | | | [phone] | | | +--------+ + + + [...] Rd | | | | | | [place], [place] | | | | | | [address] | | | | | | [phone] | | | | | | | | +--------+ + + + + | 08/19/ | Surgery | Surgery | Chilo, | OPEN VENTRAL HERNIA | | 2019 | | | MD [address] | REPAIR WITH | | | | | [address] | BIOLOGICAL MESH | | | | | [place], [place] | | | | | | [address] | | | | | | [phone] | | | | | | | | +--------+ + + + + | 09/15/ | Office | Cardiology | Randell Franks, | | | 2020 | Visit | | [address] | | | | | | [place], [place] | | | | | | [address] | | | | | | [phone] | | | | | | | | +--------+ + + + + documented as of this encounter Visit Diagnoses Not on filedocumented in this encounter"
--- OUTSIDE RECORDS SUMMARY | ~2019-06-25 | XMS | Encounter Summary ---
Demographics + + + | Address | [address] | | | [place] [address] | + + + | Home Phone [...] + | Katalina Padilla | ECON | [address] | | | | | [place], [place] | | | | | [address] | | + + + + + | Ellie Vang | ECON | Unknown | | + + + + + Care Team Providers + +------+ + | Care Customs Entry Writer Name | Role | Phone | [...] [id number] | | | | | | [facility] | | | | | | [place], [place] | | | | | | [address] | | | | | | [phone] | | | +--------+ + + + [...] Rd | | | | | | [place], [place] | | | | | | [address] | | | | | | [phone] | | | | | | | | +--------+ + + + + | 08/19/ | Surgery | Surgery | Chilo, | OPEN VENTRAL HERNIA | | 2019 | | | MD Jorje [address] | REPAIR WITH | | | | | [address] | BIOLOGICAL MESH | | | | | [place], [place] | | | | | | [address] | | | | | | [phone] | | | | | | | | +--------+ + + + + | 09/15/ | Office | Cardiology | Randell Franks, | | | 2019 | Visit | | [address] | | | | | | [address] [place], [place] | | | | | | [address] | | | | | | [phone] | | | | | | | | +--------+ + + + + documented as of this encounter Visit Diagnoses Not on filedocumented in this encounter"
--- OUTSIDE RECORDS SUMMARY | ~2019-06-25 | XMS | Encounter Summary ---
Demographics + + + | Address | [address] | | | [place] [address] | + + + | Home Phone [...] [place], [place] | | | | | [address] | | + + + + + | Ellie Vang | ECON | Unknown | | + + + + + Care Team Providers + +------+ + | Care Industrial Energy Engineer Name | Role | Phone | [...] | | [address] | Lesly Gutiérrez [place], | | | | | Mailcode: [place] | [place] [address] | | | | | [place], [place] | | | | | | [address] | | | | | | [phone] | | | +--------+ + + + [...] Rd | | | | | | [place], [place] | | | | | | [address] | | | | | | [phone] | | | | | | | | +--------+ + + + + | 08/19/ | Surgery | Surgery | Chilo, | OPEN VENTRAL HERNIA | | 2019 | | | MD Jorje [address] | REPAIR WITH | | | | | [address] | BIOLOGICAL MESH | | | | | [place], [place] | | | | | | [address] | | | | | | [phone] | | | | | | | | +--------+ + + + + | 09/15/ | Office | Cardiology | Randell Franks, | | | 2019 | Visit | | [address] | | | | | | [place], [place] | | | | | | [address] | | | | | | [phone] | | | | | | | | +--------+ + + + + documented as of this encounter Visit Diagnoses Not on filedocumented in this encounter"
--- OUTSIDE RECORDS SUMMARY | ~2019-06-25 | XMS | Encounter Summary ---
Demographics + + + | Address | [address] | | | [place] [address] | + + + | Home Phone [...] [place], [place] | | | | | [address] | | + + + + + | Ellie Vang | ECON | Unknown | | + + + + + Care Team Providers + +------+ + | Care Manager Service Desk Name | Role | Phone | + [...] | | | [address] | [facility] | | | | | Mailcode: Center | [place], [place] | | | | | [facility] and | [address] | | | | | [facility], [facility] 2 | [phone] | | | | | [place], [place] | | | | | | [address] | | | | | | [phone] | | | +--------+ + + + [...] Rd | | | | | | [place], [place] | | | | | | [address] | | | | | | [phone] | | | | | | | | +--------+ + + + + | 08/19/ | Surgery | Surgery | Chilo | OPEN VENTRAL HERNIA | 2019 | | | Jorje, MD [address] | REPAIR WITH | | | | | [address] | BIOLOGICAL MESH | | | | | [place], [place] | | | | | | [address] | | | | | | [phone] | | | | | | | | +--------+ + + + + | 09/15/ | Office | Cardiology | Randell Franks, | | | 2019 | Visit | | [address] | | | | | | [place] [facility] [place] | | | | | | [address] | | | | | | [phone] | | | | | | | | +--------+ + + + + documented as of this encounter Visit Diagnoses Not on filedocumented in this encounter"
--- OUTSIDE RECORDS SUMMARY | ~2019-06-25 | XMS | Encounter Summary ---
Demographics + + + | Address | [address] | | | [place] [address] | + + + | Home Phone [...] [place], [place] | | | | | [address] | | + + + + + | Ellie Vang | ECON | Unknown | | + + + + + Care Team Providers + +------+ + | Care Methods Analyst Data Processing Name | Role | Phone | + +------+ + | Fadi Goodrich DO | PCP | | + +------+ + Encounter Details +--------+ + + + + | Date | Type | Department | Care Team | Description | +--------+ + + + + | 06/09/ | Abstract | Cardiology | Randell Franks, | | | 2015 | | Preventive at [facility] | MD [address] | | | | | [address] | Ave [place], [place] | | | | | Mailcode: [facility] | [address] | | | | | [facility] | [phone] | | | | | and Healing, | | | | | | [address] | | | | | | [place], [place] | | | | | | [address] | | | | | | [phone] | | | +--------+ + + + [...] Rd | | | | | | [place], [place] | | | | | | [address] | | | | | | [phone] | | | | | | | | +--------+ + + + + | 08/19/ | Surgery | Surgery | Chilo, | OPEN VENTRAL HERNIA | | 2019 | | | MD Jorje [address] | REPAIR WITH | | | | | [address] | BIOLOGICAL MESH | | | | | [place], [place] | | | | | | [address] | | | | | | [phone] | | | | | | | | +--------+ + + + + | 09/15/ | Office | Cardiology | Randell Franks, | | | 2019 | Visit | | [address] | | | | | | Ave [place], [place] | | | | | | [address] | | | | | | [phone] | | | | | | | | +--------+ + + + + documented as of this encounter Visit Diagnoses Not on filedocumented in this encounter"
--- OUTSIDE RECORDS SUMMARY | ~2019-06-25 | XMS | Encounter Summary ---
Demographics + + + | Address | [address] | | | [place] [address] | + + + | Home Phone [...] + | Author | [facility] | | | and Jeffana | + + + | Organization | [facility] | | [...] | + + +---------+ + | Ellie Barntet | ECON | Unknown | | + + +---------+ + Care Team Providers + +------+ + | Care Computer Installer Name | Role | Phone | + +------+ + PCP | Unavailable | + +------+ + Encounter Details +--------+ + + + + | Date | Type | Department | Care Team | Description | +--------+ + + + + | 12/02/ | Orders Only | [facility] | Conversion | | | 2017 | | NEPHROLOGY JESUS | Transaction, | | | | | [address] | Provider Unknown | | | | | [address] [place] [address] | | | | | | [address] | (Fax) | | | | | [phone] | | | +--------+ + + + [...]
--- OUTSIDE RECORDS SUMMARY | ~2019-06-25 | XMS | Encounter Summary ---
Demographics + + + | Address | [address] | | | [place] [address] | + + + | Home Phone [...] [place], [place] | | | | | [address] | | + + + + + | Ellie Vang | ECON | Unknown | | + + + + + Care Team Providers + +------+ + | Care Building Code Administrator Name | Role | Phone | [...] | | | | | | [place] [address] | | | | | | [phone] | | | +--------+ + + + [...] Rd | | | | | | [place], [place] | | | | | | [address] | | | | | | [phone] | | | | | | | | +--------+ + + + + | 08/19/ | Surgery | Surgery | Chilo, | OPEN VENTRAL HERNIA | | 2019 | | | MD [address]orje [address] | REPAIR WITH | | | | | [address] | BIOLOGICAL MESH | | | | | [place] | | | | | | [address] | | | | | | [phone] | | | | | | | | +--------+ + + + + | 09/15/ | Office | Cardiology | Randell Franks, | | | 2019 | Visit | | [address] | | | | | | [place] | | | | | | [address] | | | | | | [phone] | | | | | | | | +--------+ + + + + documented as of this encounter Visit Diagnoses Not on filedocumented in this encounter"
--- OUTSIDE RECORDS SUMMARY | ~2019-06-25 | XMS | Encounter Summary ---
Demographics + + + | Address | [address] | | | [place] [address] | + + + | Home Phone [...] [place], [place] | | | | | [address] | | + + + + + | Ellie Vang | ECON | Unknown | | + + + + + Care Team Providers + +------+ + | Care Medical Device Sales Consultant Name | Role | Phone [...] 2012 | | Center at [facility] [address] | ACNP [address] | | | | | [address] | Ave [place], [place] | | | | | Mailcode: [place] | [address] | | | | | for Health and | | | | | | [facility] 2 | | | | | | [facility] [place] | | | | | | [address] | | | | | | | [...] Rd | | | | | | [place], [place] | | | | | | [address] | | | | | | [phone] | | | | | | | | +--------+ + + + + | 08/19/ | Surgery | Surgery | Chilo, | OPEN VENTRAL HERNIA | | 2019 | | | MD Jorje [address] | REPAIR WITH | | | | | [address] | BIOLOGICAL MESH | | | | | [place], [place] | | | | | | [address] | | | | | | [phone] | | | | | | | | +--------+ + + + + | 09/15/ | Office | Cardiology | Randell Franks, | | | 2019 | Visit | | [address] | | | | | | [place] [facility] [place] | | | | | | [address] | | | | | | [phone] | | | | | | | | +--------+ + + + + documented as of this encounter Visit Diagnoses Not on filedocumented in this encounter"
--- OUTSIDE RECORDS SUMMARY | ~2019-06-25 | XMS | Encounter Summary ---
Demographics + + + | Address | [address] | | | [place] [address] | + + + | Home Phone [...] [address] | | | | | [place], [place] | | | | | [address] | | + + + + + | Ellie Vang | ECON | Unknown | | + + + + + Care Team Providers + +------+ + | Care Corporate Associate Attorney Name | Role | Phone | + +------+ + | Fadi Goodrich DO | PCP | | + +------+ + Encounter Details +--------+ + + + + | Date | Type | Department | Care Team | Description | +--------+ + + + + | 02/24/ | Abstract | Cardiology | Randell Franks, | | | 2015 | | Preventive at [facility] | MD [address] | | | | | [address] | Ave [place], [place] | | | | | Mailcode: [facility] | [address] | | | | | [facility] | [phone] | | | | | and Healing, | | | | | | [address] | | | | | | [place], [place] | | | | | | [address] | | | | | | [phone] | | | +--------+ + + + [...] Rd | | | | | | [place], [place] | | | | | | [address] | | | | | | [phone] | | | | | | | | +--------+ + + + + | 08/19/ | Surgery | Surgery | Chilo, | OPEN VENTRAL HERNIA | | 2019 | | | MD Jorje [address] | REPAIR WITH | | | | | [address] | BIOLOGICAL MESH | | | | | [place], [place] | | | | | | [address] | | | | | | [phone] | | | | | | | | +--------+ + + + + | 09/15/ | Office | Cardiology | Randell Franks, | | | 2019 | Visit | | [address] | | | | | | Ave [place], [place] | | | | | | [address] | | | | | | [phone] | | | | | | | | +--------+ + + + + documented as of this encounter Visit Diagnoses Not on filedocumented in this encounter"
--- OUTSIDE RECORDS SUMMARY | ~2019-06-25 | XMS | Encounter Summary ---
Demographics + + + | Address | [address] | | | [place] [address] | + + + | Home Phone [...] [place], [place] | | | | | [address] | | + + + + + | Ellie Vang | ECON | Unknown | | + + + + + Care Team Providers + +------+ + | Care Furnace Room Supervisor Name | Role | Phone | + +------+ + PCP | Unavailable | + +------+ + Encounter Details +--------+ + + + + | Date | Type | Department | Care Team | Description | +--------+ + + + + | 05/13/ | Results | | Other, Faculty | | | 1992 | Only | | [phone] | | +--------+ + + + + [...] | | | | | | [place], [place] | | | | | | [address] | | | | | | [phone] | | | | | | | | +--------+ + + + + | 08/19/ | Surgery | Surgery | Chilo, | OPEN VENTRAL HERNIA | | 2019 | | | MD Jorje [address] | REPAIR WITH | | | | | [address] | BIOLOGICAL MESH | | | | | [place], [place] | | | | | | [address] | | | | | | [phone] | | | | | | | | +--------+ + + + + | 09/15/ | Office | Cardiology | Randell Franks, | | | 2019 | Visit | | [address] | | | | | | [place], [place] | | | | | | [address] | | | | | | [phone] | | | | | | | [...] | + +---------+ + + | [facility] | | | [...] | + +---------+ + + | [facility] | | | | RADIOLOGY | | | | + +---------+ + + documented in this encounter Visit Diagnoses Not on filedocumented in this encounter"
--- OUTSIDE RECORDS SUMMARY | ~2019-06-25 | XMS | Encounter Summary ---
Demographics + + + | Address | [address] | | | [place] [address] | + + + | Home Phone [...] [place], [place] | | | | | [address] | | + + + + + | Ellie Vang | ECON | Unknown | | + + + + + Care Team Providers + +------+ + | Care Manager Knowledge Name | Role | Phone | + +------+ + | Fadi Goodrich DO | PCP | | + +------+ + Encounter Details +--------+------+ + + + | Date | Type | Department | Care Team | Description | +--------+------+ + + + | 11/28/ | Lab | Laboratory at [facility] | | Essential | | 2017 | | [address] | | hypertension; Right | | | | [place], [place] | | heart failure (HCC); | | | | [address] | | Type 2 diabetes | | | | [phone] | | mellitus without | | | [...] Rd | | | | | | [place], [place] | | | | | | [address] | | | | | | [phone] | | | | | | | | +--------+ + + + + | 08/19/ | Surgery | Surgery | Chilo, | OPEN VENTRAL HERNIA | | 2019 | | | MD Jor[address] | REPAIR WITH | | | | | [address] | BIOLOGICAL MESH | | | | | [place], [place] | | | | | | [address] | | | | | | [phone] | | | | | | | | +--------+ + + + + | 09/15/ | Office | Cardiology | Randell Franks, | | | 2019 | Visit | | [address] | | | | | | Ave [place], [place] | | | | | | [address] | | | | | | [phone] | | | | | | | [...] LDL | | PDT | heart failure ([facility]) | results section. | | | [...] | | | use of insulin ([facility]) | | + +--------+ + + + | TSH | Routin | 11/28/2016 | Essential | Results for this | | | e | 10:53 AM | hypertension Right | procedure are in the | | | | PDT | heart failure ([facility]) | results section. | | | [...] | | PDT | heart failure ([facility]) | results section. | | | [...] + + | [facility] | [address] | [place] [address] | | | CLAIRE, LYDIA | CLARENCE [...] [facility] | [address] | [place], [place] | | | SERVICES, LIPID | [address] | [address] | | + + + + + [...] glycated albumin should be considered for monitoring jail | LABORATORY | | glycemic control in [...] [facility] | [address] | [place] [address] | | | SERVICES, SPECIAL | [address] [...] [facility] | [address] | [place] [address] | | | SERVICES, CORE | [address] [...]
--- OUTSIDE RECORDS SUMMARY | ~2019-06-25 | XMS | Encounter Summary ---
Demographics + + + | Address | [address] | | | [place] [address] | + + + | Home Phone [...] [place], [place] | | | | | [address] | | + + + + + | Ellie Vang | ECON | Unknown | | + + + + + Care Team Providers + +------+ + | Care Florist'S Decorator Name | Role | Phone | [...] | | 2019 | | Preventive at [facility] | [address] | stop any | | | | [address] | Ave [facility] [place] | medications? ) | | | | Mailcode: [facility] | [address] | | | | | [facility] | [phone] | | | | | and Healing, | | | | | | [address] | | | | | | [place], [place] | | | | | | [address] | | | | | | [phone] | | | +--------+ + + + [...] Rd | | | | | | [place], [place] | | | | | | [address] | | | | | | [phone] | | | | | | | | +--------+ + + + + | 08/19/ | Surgery | Surgery | Chilo, | OPEN VENTRAL HERNIA | | 2019 | | | MD Jorje [address] | REPAIR WITH | | | | | [address] | BIOLOGICAL MESH | | | | | [place], [place] | | | | | | [address] | | | | | | [phone] | | | | | | | | +--------+ + + + + | 09/15/ | Office | Cardiology | Randell Franks, | | | 2019 | Visit | | [address] | | | | | | [place], [place] | | | | | | [address] | | | | | | [phone] | | | | | | | | +--------+ + + + + documented as of this encounter Visit Diagnoses Not on filedocumented in this encounter"
--- OUTSIDE RECORDS SUMMARY | ~2019-06-25 | XMS | Encounter Summary ---
Demographics + + + | Address | [address] | | | [place] [address] | + + + | Home Phone [...] [place], [place] | | | | | [address] | | + + + + + | Ellie Vang | ECON | Unknown | | + + + + + Care Team Providers + +------+ + | Care Airport Sales Agent Name | Role | Phone | + +------+ + | Fadi Goodrich DO | PCP | | + +------+ + Encounter Details +--------+ + + + + | Date | Type | Department | Care Team | Description | +--------+ + + + + | 10/19/ | Abstract | Digestive Health | Clinic, Surgery | | | 2017 | | [place] [facility] [address] | | | | | | [address] | | | | | | Mailcode: [place] | | | | | | [facility] and | | | | | | [facility] 2 | | | | | | [place], [place] | | | | | | [address] | | | | | | [phone] | | | +--------+ + + + [...] Rd | | | | | | [facility] [place] | | | | | | [address] | | | | | | [phone] | | | | | | | | +--------+ + + + + | 08/19/ | Surgery | Surgery | Chilo, | OPEN VENTRAL HERNIA | | 2019 | | | MD J[address]je [address] | REPAIR WITH | | | | | [address] | BIOLOGICAL MESH | | | | | [place], [place] | | | | | | [address] | | | | | | [phone] | | | | | | | | +--------+ + + + + | 09/15/ | Office | Cardiology | Randell Franks, | | | 2019 | Visit | | MD [address] | | | | | | Ave [place], [place] | | | | | | [address] | | | | | | [phone] | | | | | | | | +--------+ + + + + documented as of this encounter Visit Diagnoses Not on filedocumented in this encounter"
--- OUTSIDE RECORDS SUMMARY | ~2019-06-25 | XMS | Clinical Summary ---
Demographics + + + | Address | [address] | | | [place] [address] | + + + | Home Phone | | + + + | Preferred Language | Unknown | + + + | Marital Status | | + + + | Confucianism Affiliation | Unknown | + + + | Race | Unknown | + + + | Ethnic Group | Unknown | + + + Author + + + | Author | [facility] | | | and Jeffana | + + + | Organization | Located [facility] | | | [...] + +------+ + | Care Incident Response Engineer Name | Role | Phone | [...] 0 | | | Activ | | Xqgfqsg-Dlcwnvsmv-Pt | mouth 2 times daily. | | [...] | + + + +---------+------+------+-------+ | thyroid (MONOGRAM MAKER | MONOGRAM MAKER Thyroid 30 mg | | 0 [...] + + + | Overview: Problem List Diamond Cutter Utility | + + + + + [...] qd x | | 30 October 2015 [facility] Assessment & Plan: Hgb [...] obesityPickwickian syndrome | | Recent admission to [facility] for 100lb | | weight gain- DC on diuresis on 03/06/2016- she feel improvedShe | | was on Metolazone and Torsemide prior to hospitalization- both | | have better bioavailability than lasix in gut edema but she | | retained 100lbs - how ever she is currently on only Torsemide | | 100mg Q12hrs started in [place] and her weight been stable | | sinceGrace has no other complaints.She is pending to see | | NephrologistCiriloo 02/16/2016([facility])- Normal LV systolic | | function, mildly [...] morbid obesity, she is enrolled in the [facility] bariatric program. | | She has lost [...] inpatient, tolerating well in the | | [facility] [place] arranging for BiPAP upon d/c home to [...] + + + + | Overview: Overview: [facility] Assessment & Plan: Patient [...] responded well to diuresis at | | [facility] (lost 60lb, down to 410), and then reaccumulated water | | weight on Torsemide and metolazone, which should be less effected | | by gut wall edema than Lasix. She has an appt with nephrology at | | [facility] on 03/17. Weight now 200kg (440lb, down [...] Defer Metolazone to her | | outpatient Fuel Cell Systems Engineer or Biomedical Specialist- Will continue KCL | | supplementation at 60meq QID despite the spironolactone as she | | remains on the low side- Encourage daily weights at home with a | | log; she should contact her PCP, Fuel Cell Systems Engineer or Biomedical Specialist for | | a 10lb weight gain [...] Ortiz | | | | | | Director Of Design | | +--------+ + + + + [...] | use of insulin ([facility]) | | | | | | Mixed [...] | | | | | by ICA Rule Read Only, | | | | | | ICA Ya (502), | | | | | | assistant editor Glen Alberto | | | | | | (524) on 04/28/2019 | | | | | [...] | [employer]AN | MODA | [id number] | 10/28/19 | [phone] | | Medica | | MEDICAID HMO | HEALTH | | 19-Pre | 1 | | id | | | MDCD | | sent | | | | | | [place] | | | | | | + +--------+ +--------+ +---------+--------+ | [employer]AN | MODA | [id number] | | [phone] | | Medica | | MEDICAID HMO [...] [place] | | | 3 (Home) | [address] | + +--------+ +--------+ + + | Elzbieta Cristina | Person | Self | [birth year] | [address] | | | al/Fam | | [phone] | [phone] | [address] [place], [place] | | | mireya | | | 3 (Home) | [address] | + +--------+ +--------+ + + Advance Directives + + + + + | Type | Date Recorded | Patient | Explanation | | | | Workers Compensation Manager | | + + + + + | Power of | | | | | Corrugated Sheet Material Sheeter | | | | + + + + + | Advance | | | | | Directive | | | | + + + + +
--- OUTSIDE RECORDS SUMMARY | ~2019-06-25 | XMS | Encounter Summary ---
Demographics + + + | Address | [address] | | | [place] [address] | + + + | Home Phone [...] [place], [place] | | | | | [address] | | + + + + + | Ellie Vang | ECON | Unknown | | + + + + + Care Team Providers + +------+ + | Care Vice President Financial Name | Role | Phone | [...] | | | [address] | [place], [place] | | | | | Mailcode: [place] | [address] | | | | | [facility] Health and | | | | | | [facility] 2 | | | | | | [place], [place] | | | | | | [address] | | | | | | | [...] Rd | | | | | | [place], [place] | | | | | | [address] | | | | | | [phone] | | | | | | | | +--------+ + + + + | 08/19/ | Surgery | Surgery | Chilo, | OPEN VENTRAL HERNIA | | 2019 | | | MD [address] | REPAIR WITH | | | | | [address] | BIOLOGICAL MESH | | | | | [place], [place] | | | | | | [address] | | | | | | [phone] | | | | | | | | +--------+ + + + + | 09/15/ | Office | Cardiology | Randell Franks, | | | 2019 | Visit | | [address] | | | | | | [place], [place] | | | | | | [address] | | | | | | [phone] | | | | | | | | +--------+ + + + + documented as of this encounter Visit Diagnoses Not on filedocumented in this encounter"
--- OUTSIDE RECORDS SUMMARY | ~2019-06-25 | XMS | Encounter Summary ---
Demographics + + + | Address | [address] | | | [place] [address] | + + + | Home Phone [...] [place], [place] | | | | | [address] | | + + + + + | Ellie Vang | ECON | Unknown | | + + + + + Care Team Providers + +------+ + | Care Telegraph Repeater Installer Name | Role | Phone | [...] | | | | | | [place], [place] | | | | | | [address] | | | | | | [phone] | | | | | | | | +--------+ + + + + | 08/19/ | Surgery | Surgery | Chilo, | OPEN VENTRAL HERNIA | | 2019 | | | MD Jorje [address] | REPAIR WITH | | | | | [address] | BIOLOGICAL MESH | | | | | [place], [place] | | | | | | [address] | | | | | | [phone] | | | | | | | | +--------+ + + + + | 09/15/ | Office | Cardiology | Randell Franks, | | | 2019 | Visit | | [address] | | | | | | [place], [place] | | | | | | [address] | | | | | | [phone] | | | | | | | | +--------+ + + + + documented as of this encounter Visit Diagnoses Not on filedocumented in this encounter"
--- OUTSIDE RECORDS SUMMARY | ~2019-06-25 | XMS | Encounter Summary ---
Demographics + + + | Address | [address] | | | [place] [address] | + + + | Home Phone [...] [place], [place] | | | | | [address] | | + + + + + | Ellie Vang | ECON | Unknown | | + + + + + Care Team Providers + +------+ + | Care Cnc Machinist Name | Role | Phone | [...] | 2016 | on | Center at [place] [id number] | | | | | | [address] | | | | | | Mailcode: [place] | | | | | | for Health and | | | | | | [facility] 2 | | | | | | [place], [place] | | | | | | [address] | | | | | | [phone] | | | +--------+ + + + [...] Rd | | | | | | [place], [place] | | | | | | [address] | | | | | | [phone] | | | | | | | | +--------+ + + + + | 08/19/ | Surgery | Surgery | Chilo, | OPEN VENTRAL HERNIA | | 2019 | | | MD [address] | REPAIR WITH | | | | | [address] | BIOLOGICAL MESH | | | | | [place], [place] | | | | | | [address] | | | | | | [phone] | | | | | | | | +--------+ + + + + | 09/15/ | Office | Cardiology | Randell Franks, | | | 2019 | Visit | | MD [address] | | | | | | Ave [place], [place] | | | | | | [address] | | | | | | [phone] | | | | | | | | +--------+ + + + + documented as of this encounter Visit Diagnoses Not on filedocumented in this encounter"
--- OUTSIDE RECORDS SUMMARY | ~2019-06-25 | XMS | Encounter Summary ---
Demographics + + + | Address | [address] | | | [place] [address] | + + + | Home Phone [...] [place], [place] | | | | | [address] | | + + + + + | Ellie Vang | ECON | Unknown | | + + + + + Care Team Providers + +------+ + | Care Credit Collector Name | Role | Phone | [...] 2019 | | Preventive at [facility] | MD [address] | (PHENTERMINE 37.5 mg | | | | [address] | [place], [place] | oral tablet); | | | | Mailcode: [place] | [id number] | Refill Request | | | | [facility] | [phone] | | | | | and Healing, | | | | | | Building [address] | | | | | | [place], [place] | | | | | | [address] | | | | | | [phone] | | | +--------+--------+ + + + [...] Rd | | | | | | [place], [place] | | | | | | [address] | | | | | | [phone] | | | | | | | | +--------+ + + + + | 08/19/ | Surgery | Surgery | Chilo, | OPEN VENTRAL HERNIA | | 2019 | | | MD [address] | REPAIR WITH | | | | | [address] | BIOLOGICAL MESH | | | | | [place], [place] | | | | | | [address] | | | | | | [phone] | | | | | | | | +--------+ + + + + | 09/15/ | Office | Cardiology | Randell Franks, | | | 2019 | Visit | | MD [address] | | | | | | Ave [place], [place] | | | | | | [address] | | | | | | [phone] | | | | | | | | +--------+ + + + + documented as of this encounter Visit Diagnoses Not on filedocumented in this encounter"
--- OUTSIDE RECORDS SUMMARY | ~2019-06-25 | XMS | Encounter Summary ---
Demographics + + + | Address | [address] | | | [place] [address] | + + + | Home Phone [...] [place], [place] | | | | | [address] | | + + + + + | Ellie Vang | ECON | Unknown | | + + + + + Care Team Providers + +------+ + | Care Car Chaser Name | Role | Phone | + +------+ + | Fadi Goodrich DO | PCP | | + +------+ + Encounter Details +--------+ + + + + | Date | Type | Department | Care Team | Description | +--------+ + + + + | 03/28/ | Abstract | Cardiology | Randell Franks, | | | 2014 | | Preventive at [facility] | MD [address] | | | | | [address] | Ave [place], [place] | | | | | Mailcode: [facility] | [address] | | | | | [facility] | [phone] | | | | | and Healing, | | | | | | Building [address] | | | | | | [place], [place] | | | | | | [address] | | | | | | [phone] | | | +--------+ + + + [...] Rd | | | | | | [place], [place] | | | | | | [address] | | | | | | [phone] | | | | | | | | +--------+ + + + + | 08/19/ | Surgery | Surgery | Chilo, | OPEN VENTRAL HERNIA | | 2019 | | | MD Jorje [address] | REPAIR WITH | | | | | [address] | BIOLOGICAL MESH | | | | | [place], [place] | | | | | | [address] | | | | | | [phone] | | | | | | | | +--------+ + + + + | 09/15/ | Office | Cardiology | Randell Franks, | | | 2019 | Visit | | MD [address] | | | | | | [address] [place], [place] | | | | | | [address] | | | | | | [phone] | | | | | | | | +--------+ + + + + documented as of this encounter Visit Diagnoses Not on filedocumented in this encounter"
--- OUTSIDE RECORDS SUMMARY | ~2019-06-25 | XMS | Encounter Summary ---
Demographics + + + | Address | [address] | | | [place] [address] | + + + | Home Phone [...] + | Author | [facility] | | | and Jeffana | + + + | Organization | [facility] | | | and [...] Providers + +------+ + | Care Machinist Class B Name | Role | Phone | + +------+ + | Jorje Hill | PCP | | + +------+ + Encounter Details +--------+ + + + + | Date | Type | Department | Care Team | Description | +--------+ + + + + | 06/10/ | Telephone | [facility] | [place], | | | 2019 | | INTERVENTIONAL | Mary Ortiz | | | | | RADIOLOGY [address] | | | | | [address] | | | | | | [place], [place] | | | | | | [address] | | | | | | [phone] | | | +--------+ + + + [...]
--- OUTSIDE RECORDS SUMMARY | ~2019-06-25 | XMS | Encounter Summary ---
Demographics + + + | Address | [address] | | | [place] [address] | + + + | Home Phone | | + + + | Preferred Language | Unknown | + + + | Marital Status | | + + + | Baptist Affiliation | Unknown | + + + | Race | Unknown | + + + | Ethnic Group | Unknown | + + + Author + + + | Author | [facility] | | | and Jeffana | + + + | Organization | [facility] | | | and Jeffana | [...] Team Providers + +------+ + | Care Verification Rep Name | Role | Phone | + +------+ + PCP | Unavailable | + +------+ + Encounter Details +--------+ + + + + | Date | Type | Department | Care Team | Description | +--------+ + + + + | 12/13/ | Hospital | [facility] | Erich Wells | | | 2003 | Encounter | MED CTR SLEEP | MD Michael [address] | | | | | [place] [address] | [address] [place] | | | | | [place], [place] | [place] [address] | | | | | [address] | [phone] | | | | | [phone] | | | +--------+ + + + [...]
--- OUTSIDE RECORDS SUMMARY | ~2019-06-25 | XMS | Encounter Summary ---
Demographics + + + | Address | [address] | | | [place] [address] | + + + | Home Phone [...] | Located Within [facility] | | | and Jeffana | + + + | Organization | [facility] | | | and Jeffana | [...] Providers + +------+ + | Care Golf Range Attendant Name | Role | Phone | + +------+ + PCP | Unavailable | + +------+ + Encounter Details +--------+ + + + + | Date | Type | Department | Care Team | Description | +--------+ + + + + | 10/07/ | Orders Only | [facility] | Conversion | | | 2018 | | NEPHROLOGY JESUS | Transaction, | | | | | [address] | Provider Unknown | | | | | [address] [place] | | | | | | [address] | (Fax) | | | | | [phone] | | | +--------+ + + + [...]
--- OUTSIDE RECORDS SUMMARY | ~2019-06-25 | XMS | Encounter Summary ---
Demographics + + + | Address | [address] | | | [place] [address] | + + + | Home Phone [...] | Located [facility] | | | and Jeffana | + + + | Organization | Located [facility] | | | and Jeffana [...] Providers + +------+ + | Care Metal Flow Coordinator Name | Role | Phone | [...] [place] | | | | | | [address] | | | | | | [phone] | | | +--------+ + + + [...]
--- OUTSIDE RECORDS SUMMARY | ~2019-06-25 | XMS | Encounter Summary ---
Demographics + + + | Address | [address] | | | [place] [address] | + + + | Home Phone [...] | Author | [facility] | | | and Jeffana | + + + | Organization | [facility] | | | and Jeffana | + + + | Address | Unknown | + + + | Phone | Unavailable | + + + Support + + +---------+ + | Name | Relationship | Address | Phone | + + +---------+ + | Kaatlina Padilla | ECON | Unknown | Unavailable | + + +---------+ + | Ellie Barnett | ECON | Unknown | | + + +---------+ + Care Team Providers + +------+ + | Care Pharmacy Resident Name | Role | Phone | + [...] + + | 06/21/ | Telephone | [facility] | Christian Dawson, | Pre-Op (confirm | | 2019 | | CENTER CV INTRA OP | [address] | arrival for 06/22 | | | | [address] | [address] | procedure) | | | | [place], [place] | [place] [address] | | | | | [address] | [phone] | | | | | [phone] | | | +--------+ + + + [...]
--- OUTSIDE RECORDS SUMMARY | ~2019-06-25 | XMS | Encounter Summary ---
Demographics + + + | Address | [address] | | | [place] [address] | + + + | Home Phone [...] [place], [place] | | | | | [address] | | + + + + + | Ellie Vang | ECON | Unknown | | + + + + + Care Team Providers + +------+ + | Care Solution Coordinator Name | Role | Phone | [...] Diabetes & | Morbid | Kathy Feliciano, VETERINARY TECHNICIAN ASSISTANT | [address] | | | | Metabolism | obesity | [address] | | | | | ([facility]) | [address], | [address] | | | | | Procedures | [address] | Physician's | | | | | CONSULT TO | [place], [place] | Pavilion | | | | | ENDO | [address] | Physician's | | | | | [address] | Phone: | Pavilion | | | | | [address] | [phone] | [place], [place] | | | | | | Fax: | [address] | | | | | | [phone] | Phone: | | | | | | | [phone] | | | | | | | Fax: | | | | | | | [phone] | +--------+--------+ + + + + Encounter Details +--------+ + + + + | Date | Type | Department | Care Team | Description | +--------+ + + + + | 11/15/ | Documentati | Digestive Health | Kathy Feldman, | | | 2012 | on | Center at [facility] [address] | VETERINARY TECHNICIAN ASSISTANT [address] | | | | | [address] | [facility] [address] | | | | | Mailcode: Center | [place], [place] | | | | | [facility] Health and | [address] | | | | | [facility] 2 | [phone] | | | | | [place], [place] | | | | | | [address] | | | | | | [phone] | | | +--------+ + + + [...] Rd | | | | | | [place], [place] | | | | | | [address] | | | | | | [phone] | | | | | | | | +--------+ + + + + | 08/19/ | Surgery | Surgery | Chilo, | OPEN VENTRAL HERNIA | | 2020 | | | MD [address] | REPAIR WITH | | | | | [address] | BIOLOGICAL MESH | | | | | [place], [place] | | | | | | [address] | | | | | | [phone] | | | | | | | | +--------+ + + + + | 09/15/ | Office | Cardiology | Randell Franks, | | | 2019 | Visit | | [address] | | | | | | Ave [place], [place] | | | | | | [address] | | | | | | [phone] | | | | | | | | +--------+ + + + + documented as of this encounter Visit Diagnoses + + | Diagnosis | + + | Morbid obesity (HCC) - Primary Morbid obesity | + + documented in this encounter"
--- OUTSIDE RECORDS SUMMARY | ~2019-06-25 | XMS | Encounter Summary ---
Demographics + + + | Address | [address] | | | [place] [address] | + + + | Home Phone [...] [place], [place] | | | | | [address] | | + + + + + | Ellie Vang | ECON | Unknown | | + + + + + Care Team Providers + +------+ + | Care Cement Truck Driver Name | Role | Phone | + +------+ + | Kenyatta Cardenas MD | PCP | | + +------+ + Encounter Details +--------+ + + + + | Date | Type | Department | Care Team | Description | +--------+ + + + + | 05/03/ | Inside | [facility] at [facility] | Ion Pandey, | | | 2018 | Referral | [place] [address] | MD [address] | | | | Order | [address] Mailcode: | [place], [place] | | | | | [address] [place] [address] for | [address] | | | | | Health and Healing, | [phone] | | | | | [address] | | | | | | [place], [place] | | | | | | [address] | | | | | | [phone] | | | +--------+ + + + [...] Rd | | | | | | [place], [place] | | | | | | [address] | | | | | | [phone] | | | | | | | | +--------+ + + + + | 08/19/ | Surgery | Surgery | Chilo, | OPEN VENTRAL HERNIA | | 2019 | | | MD [address] | REPAIR WITH | | | | | [address] | BIOLOGICAL MESH | | | | | [place], [place] | | | | | | [address] | | | | | | [phone] | | | | | | | | +--------+ + + + + | 09/15/ | Office | Cardiology | Randell Franks, | | | 2020 | Visit | | [address] | | | | | | [place], [place] | | | | | | [address] | | | | | | [phone] | | | | | | | [...]
--- OUTSIDE RECORDS SUMMARY | ~2019-06-25 | XMS | Encounter Summary ---
Demographics + + + | Address | [address] | | | [place] [address] | + + + | Home Phone [...] + | Katalina Padilla | ECON | [address] | | | | | [place], [place] | | | | | [address] | | + + + + + | Ellie Vang | ECON | Unknown | | + + + + + Care Team Providers + +------+ + | Care Tassel Maker Name | Role | Phone | [...] | | | | | Healing, | [place], [place] | | | | | | [address] | [address] | | | | | | [place], [place] | Phone: | | | | | | [address] | [phone] | | | | | | Phone: | Fax: | | | | | | [phone] | [phone] | | | | | | Fax: | | | | | | | [phone] | | +--------+--------+ + + + + [...] | | | | | Healing, | [place], [place] | | | | | | [address] | [address] | | | | | | [place], [place] | Phone: | | | | | | [address] | [phone] | | | | | | Phone: | Fax: | | | | | | [phone] | [phone] | | | | | | Fax: | | | | | | | [phone] | | +--------+--------+ + + + + Encounter Details +--------+ + + + + | Date | Type | Department | Care Team | Description | +--------+ + + + + | 10/07/ | Hospital | Radiology/Imaging | | | | 2012 | Encounter | Lab at [facility] [address] | | | | | | [address] Mailcode: | | | | | | [facility] | | | | | [facility] and Healing, | | | | | | Building 1, 3rd | | | | | | Floor [place], [place] | | | | | | [address] | | | | | | [phone] | | | +--------+ + + + [...] Rd | | | | | | [place], [place] | | | | | | [address] | | | | | | [phone] | | | | | | | | +--------+ + + + + | 08/19/ | Surgery | Surgery | Chilo, | OPEN VENTRAL HERNIA | | 2019 | | | MD [address] | REPAIR WITH | | | | | [address] | BIOLOGICAL MESH | | | | | [place], [place] | | | | | | [address] | | | | | | [phone] | | | | | | | | +--------+ + + + + | 09/15/ | Office | Cardiology | Randell Franks, | | | 2019 | Visit | | [address] | | | | | | Ave [place], [place] | | | | | | [address] | | | | | | [phone] | | | | | | | [...] + + | JUSTINE PEÑA | [address] [facility] | [place] [address] | | | OF CARE TESTS | | | | + + + + + documented in this encounter Visit Diagnoses + + | Diagnosis | + + | Hernia Hernia of unspecified site of abdominal cavity without mention of obstruction | | or gangrene | + + documented in this encounter"
--- OUTSIDE RECORDS SUMMARY | ~2019-06-25 | XMS | Encounter Summary ---
Demographics + + + | Address | [address] | | | [place] [address] | + + + | Home Phone [...] [place], [place] | | | | | [address] | | + + + + + | Ellie Vang | ECON | Unknown | | + + + + + Care Team Providers + +------+ + | Care Contour Path Tape Mill Operator Name | Role | Phone [...] 11/08/ | Telephone | Cardiology | Randell rFanks, | Care Coordination | | 2015 | | [facility]ive at [facility] | MD [address] | | | | | [address] | [place], [place] | | | | | Mailcode: [facility] | [address] | | | | | [facility] | [phone] | | | | | and [address], | | | | | | [address] | | | | | | [place], [place] | | | | | | [address] | | | | | | [phone] | | | +--------+ + + + [...] [place] | | | | | | [address] | | | | | | [phone] | | | | | | | | +--------+ + + + + | 08/19/ | Surgery | Surgery | Chilo, | OPEN VENTRAL HERNIA | | 2019 | | | MD Demond Recinos | REPAIR WITH | | | | | [address] | BIOLOGICAL MESH | | | | | [place] | | | | | | [address] | | | | | | [phone] | | | | | | | | +--------+ + + + + | 09/15/ | Office | Cardiology | Randell Franks, | | | 2019 | Visit | | MD [address] | | | | | | [place], [place] | | | | | | [address] | | | | | | [phone] | | | | | | | | +--------+ + + + + documented as of this encounter Visit Diagnoses Not on filedocumented in this encounter"
--- OUTSIDE RECORDS SUMMARY | ~2019-06-25 | XMS | Encounter Summary ---
Demographics + + + | Address | [address] | | | [place] [address] | + + + | Home Phone [...] [place], [place] | | | | | [address] | | + + + + + | Ellie Vang | ECON | Unknown | | + + + + + Care Team Providers + +------+ + | Care Oil Refinery Process Technician Name | Role | Phone | [...] [facility] [address] | UNARMED SECURITY OFFICER [address] | | | | | [address] | [facility] 350 | | | | | Mailcode: Center | [place], [place] | | | | | [facility] and | [address] | | | | | [facility] 2 | [phone] | | | | | [place], [place] | | | | | | [address] | | | | | | [phone] | | | +--------+ + + + [...] Rd | | | | | | [place], [place] | | | | | | [address] | | | | | | [phone] | | | | | | | | +--------+ + + + + | 08/19/ | Surgery | Surgery | Chilo | OPEN VENTRAL HERNIA | | 2019 | | | MD Jorje [address] | REPAIR WITH | | | | | [address] | BIOLOGICAL MESH | | | | | [place], [place] | | | | | | [address] | | | | | | [phone] | | | | | | | | +--------+ + + + + | 09/15/ | Office | Cardiology | Randell Franks, | | | 2019 | Visit | | [address] | | | | | | [address] [place], [place] | | | | | | [address] | | | | | | [phone] | | | | | | | | +--------+ + + + + documented as of this encounter Visit Diagnoses Not on filedocumented in this encounter"
--- OUTSIDE RECORDS SUMMARY | ~2019-06-25 | XMS | Encounter Summary ---
Demographics + + + | Address | [address] | | | [place] [address] | + + + | Home Phone [...] [place], [place] | | | | | [address] | | + + + + + | Ellie Vang | ECON | Unknown | | + + + + + Care Team Providers + +------+ + | Care Cotton Chopper Name | Role | Phone | [...] | [address] | Ave [place], [place] | | | | | Mailcode: [facility] | [address] | | | | | [facility] | [phone] | | | | | and Healing, | | | | | | [address] | | | | | | [place], [place] | | | | | | [address] | | | | | | [phone] | | | +--------+ + + + [...] Rd | | | | | | [place], [place] | | | | | | [address] | | | | | | [phone] | | | | | | | | +--------+ + + + + | 08/19/ | Surgery | Surgery | Chlio, | OPEN VENTRAL HERNIA | | 2019 | | | MD Jroje [address] | REPAIR WITH | | | | | [address] | BIOLOGICAL MESH | | | | | [place], [place] | | | | | | [address] | | | | | | [phone] | | | | | | | | +--------+ + + + + | 09/15/ | Office | Cardiology | Randell Franks, | | | 2019 | Visit | | MD [address] | | | | | | Ave [place], [place] | | | | | | [address] | | | | | | [phone] | | | | | | | | +--------+ + + + + documented as of this encounter Visit Diagnoses Not on filedocumented in this encounter"
--- OUTSIDE RECORDS SUMMARY | ~2019-06-25 | XMS | Encounter Summary ---
[...] [place], [place] | | | | | [address] | | + + + + + | Ellie Vang | ECON | Unknown | | + + + + + Care Team Providers + +------+ + | Care Clinic Md Associate Name | Role | Phone | [...] | | 2018 | | Preventive at [facility] | MD [address] | (Phentermine 37.5mg) | | | | [address] | [place], [place] | | | | | Mailcode: [facility] | [address] | | | | | [facility] | [phone] | | | | | and [address], | | | | | | [address] | | | | | | [place], [place] | | | | | | [address] | | | | | | [phone] | | | +--------+ + + + [...] Rd | | | | | | [place] | | | | | | [address] | | | | | | [phone] | | | | | | | | +--------+ + + + + | 08/19/ | Surgery | Surgery | Chilo, | OPEN VENTRAL HERNIA | | 2019 | | | MD Demond [address] | REPAIR WITH | | | | | [address] | BIOLOGICAL MESH | | | | | [place], [place] | | | | | | [address] | | | | | | [phone] | | | | | | | | +--------+ + + + + | 09/15/ | Office | Cardiology | Randell Franks, | | | 2020 | Visit | | MD [address] | | | | | | [place], [place] | | | | | | [address] | | | | | | [phone] | | | | | | | | +--------+ + + + + documented as of this encounter Visit Diagnoses Not on filedocumented in this encounter"
--- OUTSIDE RECORDS SUMMARY | ~2019-06-25 | XMS | Encounter Summary ---
Demographics + + + | Address | [address] | | | [place] [address] | + + + | Home Phone [...] | Author | [facility] | | | and Jeffana | + + + | Organization | [facility] | | | and [...] Providers + +------+ + | Care Gas Shovel Operator Name | Role | Phone | + +------+ + PCP | Unavailable | + +------+ + Encounter Details +--------+ + + + + | Date | Type | Department | Care Team | Description | +--------+ + + + + | // | Orders Only | [facility] | Conversion | | | 2019 | | NEPHROLOGY JESUS | Transaction, | | | | | [address] | Provider Unknown | | | | | [address] [place] [address] | | | | | | [address] | (Fax) | | | | | [phone] | | | +--------+ + + + [...] | | | LAB | | | [facility] | | | | | + +-------+ [...]
--- OUTSIDE RECORDS SUMMARY | ~2019-06-25 | XMS | Encounter Summary ---
Demographics + + + | Address | [address] | | | [place] [address] | + + + | Home Phone [...] [place], [place] | | | | | [address] | | + + + + + | Ellie Vang | ECON | Unknown | | + + + + + Care Team Providers + +------+ + | Care Supervising Bailiff Name | Role | Phone | + +------+ + | Kenyatta Cardenas MD | PCP | | + +------+ + Encounter Details +--------+ + + + + | Date | Type | Department | Care Team | Description | +--------+ + + + + | 06/06/ | Telephone | Digestive Health | Chilo | | | 2019 | | [place] at [facility] [address] | MD [address]orje [address] | | | | | [address] | [address] | | | | | Mailcode: Center | [place], [place] | | | | | [facility] and | [address] | | | | | [facility] 2 | [phone] | | | | | [place], [place] | | | | | | [address] | | | | | | [phone] | | | +--------+ + + + [...] Rd | | | | | | [place], [place] | | | | | | [address] | | | | | | [phone] | | | | | | | | +--------+ + + + + | 08/19/ | Surgery | Surgery | Chilo, | OPEN VENTRAL HERNIA | | 2019 | | | MD Demond Rec[address] | REPAIR WITH | | | | | [address] | BIOLOGICAL MESH | | | | | [place], [place] | | | | | | [address] | | | | | | [phone] | | | | | | | | +--------+ + + + + | 09/15/ | Office | Cardiology | Randell Franks, | | | 2020 | Visit | | [address] | | | | | | [place], [place] | | | | | | [address] | | | | | | [phone] | | | | | | | | +--------+ + + + + documented as of this encounter Visit Diagnoses Not on filedocumented in this encounter"
--- OUTSIDE RECORDS SUMMARY | ~2019-06-25 | XMS | Encounter Summary ---
Demographics + + + | Address | [address] | | | [place] [address] | + + + | Home Phone [...] + | Katalina Padilla | ECON | [address] | | | | | [place], [place] | | | | | [address] | | + + + + + [...] | | | | | | [place] [address] | | | | | | [phone] | | | +--------+ + + + [...] [place] | | | | | | [address] | | | | | | [phone] | | | | | | | | +--------+ + + + + | 08/19/ | Surgery | Surgery | Chilo | OPEN VENTRAL HERNIA | | 2019 | | | MD [address] | REPAIR WITH | | | | | [address] | BIOLOGICAL MESH | | | | | [place], [place] | | | | | | [address] | | | | | | [phone] | | | | | | | | +--------+ + + + + | 09/15/ | Office | Cardiology | Randell Franks, | | | 2020 | Visit | | MD [address] | | | | | | [place], [place] | | | | | | [address] | | | | | | [phone] | | | | | | | | +--------+ + + + + documented as of this encounter Visit Diagnoses Not on filedocumented in this encounter"
--- OUTSIDE RECORDS SUMMARY | ~2019-06-25 | XMS | Encounter Summary ---
Demographics + + + | Address | [address] | | | [place] [address] | + + + | Home Phone [...] [place], [place] | | | | | [address] | | + + + + + | Ellie Vang | ECON | Unknown | | + + + + + Care Team Providers + +------+ + | Care Protective Services Case Worker Name | Role | Phone | [...] + + | 01/01/ | Emergency | [facility] Emergency | Fide Hester | | | 2017 - | | Department [address] | MD Raza [address] | | | | | [address] | [address] | | | 01/02/ | | [facility] | [place], [place] | | | 2017 | | [place] | [address] | | | | | [address] | [phone] | | | | | [phone] | | | | | | | Jaime Yee, | | | | | | ANP [address] | | | | | | [facility] [address] | | | | | | [place], [place] | | | | | | [address] | | | | | | [phone] | | | | | | | | | | | | Sheree Aguiar MD | | | | | | [address] | | | | | | [place], [place] | | | | | | [address] | | | | | | | | | | | | Felix Cardoza, | | | | | | COMMUNICATIONS EQUIPMENT OPERATOR [address] | | | | | | [facility] [facility] [address] | | | | | | [place], [place] | | | | | | [address] | | | | | | [phone] | | | | | | | [...] in this encounter Discharge Instructions Instructions Felix Carodza FNP - 01/02/2017You were admitted to ED [...] ready for discharge. Thank you for choosing [facility] for your healthcare needs. Abdominal Hernia [...] living will and a durable power of civil rights attorney for health care. Bring a copy [...] apply lotions, perfume s, deodorants, or nail tuvaluan. Do not shave the surgical site yourself. [...] driving, and getting back to your nor [facility] routine. When should you call your doctor? [...] Repair: Before Your Surgery", log into your ArgoPay a ccount at [email or web address]. You can enter U288 in the "WorkTouch Library" search box . Not on ArgoPay? Review the Kayse Wirelesst section of your After Visit Summary for directions on anjel aguero to sign up. Current as of: March 04, 2016 Content Version: 11.2 [id number] [employer]. Care instructions adapted under license by [facility]. If you have questions about a medical condition or this instr uction, always ask your healthcare professional. Klash disclaims any curly anty or liability for [...] changes in the way you eat. An cash reconciliation specialist to help you be more active [...] Prepare for Weight-Loss Surgery", log into your ArgoPay account at [email or web address]. You can enter C413 in the "WorkTouch Library" s earch box. Not on ArgoPay? Review the ArgoPay section of your After Visit Summary for directions on anjel aguero to sign up. Current as of: May 08, 2016 Content Version: 11.2 [id number] [employer]ash. Care instructions adapted under license by [facility]. If you have questions about a medical condition or this instr uction, always ask your healthcare professional. Klash disclaims any curly anty or liability for [...] | | 0 | | | | [id number] | mouth two times | | | [...] Ball MD - 01/02/2017 7:49 AM PDT [facility] DEPARTMENT OF SURGERY EMERGENCY GENERAL SURGERY Division of Trauma and Critical Care Attending Physician: Felix Cardoza NP Progress Note Note Date: 01/02/2017 Admission Date: 01/01/2017 DYLANTrinity JASSO NICK, Hospital Day #1 INTERVAL HISTORY and SUBJECTIVE: [...] wall hernias, laci hobbs was flown from [place] with abdominal pain from a recurrent, reducible [...] uss with Dr. Moore. Mary Ball MD [id number] [facility] A [address] [address] documented in this en counter Plan of [...] Rd | | | | | | [place] | | | | | | [address] | | | | | | [phone] | | | | | | | | +--------+ + + + + | 08/19/ | Surgery | Surgery | Chilo, | OPEN VENTRAL HERNIA | | 2019 | | | MD Demond Rec[address] | REPAIR WITH | | | | | [address] | BIOLOGICAL MESH | | | | | [place], [place] | | | | | | [address] | | | | | | [phone] | | | | | | | | +--------+ + + + + | 09/15/ | Office | Cardiology | Randell Franks, | | | 2019 | Visit | | [address] | | | | | | [place], [place] | | | | | | [address] | | | | | | [phone] | | | | | | | [...] + + + + + | [facility] | [address] | [place], [place] | | | JUSTINE DAWN OF JAKY | [facility] | [address] | | | TESTS | | | [...] + + | [facility] | [address] | [place] [address] | | | SERVICES, CORE | CLARENCE [...] [facility] | [address] | [place], [place] | | | JUSTINE DAWN OF JAKY | [address] | [address] | | | TESTS | | | [...] | + + + + + | [facility] | [address] | [place] [address] | | | SERVICES, CORE | CLARENCE [...] + + + + + | [facility] | [address] | [place] [address] | | | LYDIA RANGEL | CLARENCE [...] + + + + + | [place] - | [address] | [place] [address] | | | [place] | | | | + + + + + CULTURE, URINE [facility] (01/01/2017 10:54 AM PDT) + + + [...] | + + + + + | [facility] | [address] | [place] [address] | | | SERVICES, CORE | CLARENCE [...] - [facility] | [address] | [place], [place] | | | JUSTINE DAWN OF [facility] | [facility] | [address] | | | TESTS | | | [...] [facility] | [address] | [place] [address] | | | SERVICES, | [address] [...] [facility] | [address] | [place] [address] | | | SERVICES, | [address] [...] [facility] | [address] | [place] [address] | | | SERVICES, CORE | CLARENCE [...] + + | [facility] | [address] [facility] | [place] [address] | | | SERVICES, CORE | CLARENCE [...] | + + + + + | [facility] | [address] | [place] [address] | | | SERVICES, CORE | CLARENCE BONNER | | | + + + + + ED INFORMATION EXCHANGE (01/01/2017 8:22 AM PDT) + + + + + + | Component | Value | Ref Range | Performed | Pathologist | | | | | At | Signature | + + + + + + | [facility] | [id number] | | [facility] | | | | [id number] | | MEDICAL | | | | [...] ---- | | | RADHA GOODRICH at [facility] | | | [facility] Unknown Primary Care | | | Unknown - Current Radha Goodrich DO | | | [id number] Primary Care | | | Unknown - Current | | + + + + + + + + | Performing | Address | City/State/Zipcode | Phone Number | | Organization | | | | + + + + + | [facility] | [address], | [place], [place] | [phone] | | [employer] | [address] | [address] | | + + + + + [...] | First dose on [facility] 01/01/17 at 2100, | | | | | | | Last dose on [facility] 01/04/17 at 0700 | | | | | [...] mg, intramuscular, | | | NEEDED, Starting Thu01/01/17 at | | | 1751, Until Thu01/02/17 [...] | | | | | | | [facility] 01/01/17 at 2200, Until | | | [...] | First dose on [facility] 01/01/17 at 1945, | | AM PDT [...] | ONCE, 1 dose, [facility] 01/01/17 at 0945 | | AM PDT [...]
--- OUTSIDE RECORDS SUMMARY | ~2019-06-25 | XMS | Encounter Summary ---
Demographics + + + | Address | [address] | | | [place] [address] | + + + | Home Phone [...] [place], [place] | | | | | [address] | | + + + + + | Ellie Vang | ECON | Unknown | | + + + + + Care Team Providers + +------+ + | Care Individual Small Group Instructor Name | Role | Phone | + +------+ + | Fadi Goodrich DO | PCP | | + +------+ + Encounter Details +--------+ + + + + | Date | Type | Department | Care Team | Description | +--------+ + + + + | 03/04/ | Telephone | Digestive Health | Ion Pandey, | | | 2018 | | [place] [facility] [address] | MD [address] | | | | | [address] | [place], [place] | | | | | Mailcode: [place] | [address] | | | | | for Health and | | | | | | [facility] 2 | | | | | | [facility] [place] | | | | | | [address] | | | | | | | [...] Rd | | | | | | [place], [place] | | | | | | [address] | | | | | | [phone] | | | | | | | | +--------+ + + + + | 08/19/ | Surgery | Surgery | Chilo | OPEN VENTRAL HERNIA | | 2019 | | | MD [address] | REPAIR WITH | | | | | [address] | BIOLOGICAL MESH | | | | | [place], [place] | | | | | | [address] | | | | | | [phone] | | | | | | | | +--------+ + + + + | 09/15/ | Office | Cardiology | Randell Franks, | | | 2019 | Visit | | [address] | | | | | | [place] | | | | | | [address] | | | | | | [phone] | | | | | | | | +--------+ + + + + documented as of this encounter Visit Diagnoses Not on filedocumented in this encounter"
--- OUTSIDE RECORDS SUMMARY | ~2019-06-25 | XMS | Encounter Summary ---
Demographics + + + | Address | [address] | | | [place] [address] | + + + | Home Phone [...] + | Katalina Padlila | ECON | [address] | | | | | [place], [place] | | | | | [address] | | + + + + + | Ellie Vang | ECON | Unknown | | + + + + + Care Team Providers + +------+ + | Care Remote Sensing Analyst Name | Role | Phone | [...] [place] | | | | | | [address] | | | | | | [phone] | | | | | | | | +--------+ + + + + | 08/19/ | Surgery | Surgery | Chilo, | OPEN VENTRAL HERNIA | | 2019 | | | MD Jorje [address] | REPAIR WITH | | | | | [address] | BIOLOGICAL MESH | | | | | [place], [place] | | | | | | [address] | | | | | | [phone] | | | | | | | | +--------+ + + + + | 09/15/ | Office | Cardiology | Randell Franks, | | | 2019 | Visit | | [address] | | | | | | [place], [place] | | | | | | [address] | | | | | | [phone] | | | | | | | | +--------+ + + + + documented as of this encounter Visit Diagnoses Not on filedocumented in this encounter"
--- OUTSIDE RECORDS SUMMARY | ~2019-06-25 | XMS | Encounter Summary ---
Demographics + + + | Address | [address] | | | [place] [address] | + + + | Home Phone [...] [place], [place] | | | | | [address] | | + + + + + | Ellie Vang | ECON | Unknown | | + + + + + Care Team Providers + +------+ + | Care Cold Rolling Machine Setter Name | Role | Phone [...] [address] | | | | | [place] [facility] [address] | [address] [place], [place] | | | | | [address] [facility] | [address] | | | | | Mailcode: Center | [phone] | | | | | for Health and | | | | | | [facility] 2 | | | | | | [place], [place] | | | | | | [address] | | | | | | [phone] | | | +--------+ + + + [...] [place] | | | | | | [address] | | | | | | [phone] | | | | | | | | +--------+ + + + + | 08/19/ | Surgery | Surgery | Chilo, | OPEN VENTRAL HERNIA | | 2019 | | | MD Jorje [address] | REPAIR WITH | | | | | [address] | BIOLOGICAL MESH | | | | | [place], [place] | | | | | | [address] | | | | | | [phone] | | | | | | | | +--------+ + + + + | 09/15/ | Office | Cardiology | Randell Franks, | | | 2019 | Visit | | MD [address] | | | | | | [place], [place] | | | | | | [address] | | | | | | [phone] | | | | | | | | +--------+ + + + + documented as of this encounter Visit Diagnoses Not on filedocumented in this encounter"
--- OUTSIDE RECORDS SUMMARY | ~2019-06-25 | XMS | Encounter Summary ---
Demographics + + + | Address | [address] | | | [place] [address] | + + + | Home Phone [...] [place], [place] | | | | | [address] | | + + + + + | Ellie Vang | ECON | Unknown | | + + + + + Care Team Providers + +------+ + | Care Clinical Law Professor Name | Role | Phone [...] | [facility] | | | with FUNERAL DIRECTOR AND EMBALMER | | hypertension | [address] | [address] | | | | | Right | [address] | [address] | | | | | heart | [place], [place] | Mailcode: | | | | | failure | [address] | Center for | | | | | ([facility]) Type | Phone: | Health and | | | | | 2 diabetes | [phone] | Healing, | | | | | mellitus | Fax: | Building 2 | | | | | without | [phone] | [place], [place] | | | | | complication | | [address] | | | | | , with | | Phone: | | | | | long-term | | | | | | | current use | | Fax: | | | | | of insulin | | [phone] | | | | | ([facility]) | | | | [...] 2019 | Visit | Center at [facility] [address] | [address] | gastric bypass | | | | [address] | Ave [place], [place] | (Primary Dx); | | | | Mailcode: [place] | [address] | Intertriginous | | | | for Health and | [phone] | candidiasis | | | | [facility], [facility] 2 | | | | | | [place], [place] | | | | | | [address] | | | | | | [phone] | | | +--------+---------+ + + + [...] a new PCP, Dr. Cardenas in [facility]. Bariatric Measures: Activity: walking 1.5-2 miles [...] Andie Brian Incisional hernia repair 03/01/2015 [facility]/ Dr. Cantu. Primary fascial closure and scar excision Lap gastric byp, and nilesh-en-y gastroenterostomy w/ nilesh limb 150 cm or less 8 [facility] Social History Social History Marital status: [...] History Narrative Updated 11/09/15 She lives in [place] with her mother and her sister (also her caregiver) lives in an apa rtment/duplex below. She has 2 grandchildren (age 4 and 7) who live with her daughter and son-in-law Her boyfriend lives in [place] HFpEF, DM2, HTN, Sleep Apnea (unable to [...] program here and refer her to our ammunition specialist who also has expertise in physical [...] tongue once daily., Disp: , Rfl: CALCIUM [id number]-GENIS ORAL, Take 2 tablets by mouth two [...] n/a -HTN: still on medications -Diabetes: seeing drama director in December, hopes to eliminate Metformin then as recent A1c was normal Return to bariatric clinic in 6 months for 1 year follow up visit See your primary care provider for adjusting any other medications. Call if any abdominal pain, n/v/d or other issues. Pt agrees to plan and will call and/or send Beetailer message if any issues. Start time 2:45, end time 3:10. I spent a total of 25 minutes face to face with this patie nt. Over 50% of visit was in counseling. HILDA Davalos Bariatric Surgery Nurse Practitioner [facility] | [address] | [place], [place] | [address] | documented in this encounter Plan of [...] [place] | | | | | | [address] | | | | | | [phone] | | | | | | | | +--------+ + + + + | 08/19/ | Surgery | Surgery | Chilo, | OPEN VENTRAL HERNIA | | 2019 | | | MD [address] | REPAIR WITH | | | | | [address] | BIOLOGICAL MESH | | | | | [place], [place] | | | | | | [address] | | | | | | [phone] | | | | | | | | +--------+ + + + + | 09/15/ | Office | Cardiology | Randell Franks, | | | 2020 | Visit | | [address] | | | | | | [place], [place] | | | | | | [address] | | | | | | [phone] | | | | | | | [...] | | e | 3:29 PM | Nilehs-en-Y gastric | procedure are in the | [...] [facility] | [address] | [place] [address] | | | SERVICES, CORE | PARK [...] | + + + + + | [facility] | [address] | [place] [address] | | | SERVICES, [facility] | [address] | | | + [...] INTFC | | | | determined by [email or web address] | | | | | | Laboratories. See | | | | | | Compliance Statement B: | | | | | | [facility].[employer]/CSPerformed | | | | | | by [facility],[address] | | | | | | [address], [facility],[place] | | | | | | [address] | | | | | | [phone].[facility]. | | | | | | comIsmael [...] | UNIV PTH - INTFC | | [address] | | + + + + + [...] | | | | | determined by [email or web address] | | | | | | Laboratories. See | | | | | | Compliance Statement B: | | | | | | [facility].[employer]/CSPerformed | | | | | | by [facility],[address] | | | | | | [facility] | | | | | | [address] | | | | | | [phone].[employer]. | | | | | | mountainstar [...] + | [facility] | [address] [facility] | [place], [place] | | | UNIV PTH - INTFC | | [address] | | + + + + + [...] [facility] | | | (YEN NOAH) | [facility],500 | | REG UNIV | | | SERUM | Liliana Martinez, [facility],[place] | | PTH - INTFC | | | | [address] | | | | | | [phone].aruplab. | | | | | | Ismael [...] B: | | | | | | [employer]/CS | | | | + + + [...] | UNIV PTH - INTFC | | [address] | | + + + + + [...] [facility] | [address] | [place] [address] | | | SERVICES, CORE | PARK [...] | + + + + + | [facility] | [address] | [place] [address] | | | SERVICES, CORE | CLARENCE [...] INTERPRETIVE | 70 - 180 nmol/L | [facility] | | | WHOLE [...] | | | | | determined by [email or web address] | | | | | | Laboratories. See | | | | | | Compliance Statement B: | | | | | | [facility] [employer]/CSPerformed | | | | | | by [facility],[address] | | | | | | [place], [place] | | | | | | [address] | | | | | | [phone].[facility]. | | | | | | mountainstar [...] | UNIV PTH - INTFC | | [address] | | + + + + + [...] [facility] | [address] | [place] [address] | | | SERVICES, CORE | PARK [...] | | | | | determined by [email or web address] | | | | | | Laboratories. See | | | | | | Compliance Statement B: | | | | | | [facility].[employer]/CSPerformed | | | | | | by [facility],[address] | | | | | | [facility],[place] | | | | | | [address] | | | | | | [phone].[facility]. | | | | | | Mozzo AnalyticsIsmael MD, | | | | | | [...] | UNIV PTH - INTFC | | [address] | | + + + + + [...] [facility] | [address] | [place] [address] | | | SERVICES, CORE | PARK [...] | + + + + + | [facility] | [address] | [place] [address] | | | SERVICES, SPECIAL | CLARENCE [...] | + + + + + | [facility] | [address] | [place] [address] | | | SERVICES, CORE | CLARENCE [...] at | | | | | | [email or web address] | | | | | | med by [facility] | | | | | | [facility],[address] [place] [address] | | | | | | [place] [address] | | | | | | [phone].Franchisee [facility]. | | | | | | mountainstar [...] | UNIV PTH - INTFC | | [address] | | + + + + + [...] + + + | [facility] [employer] | [address] | [place] [address] | | | SERVICES, CORE | CLARENCE [...]
--- OUTSIDE RECORDS SUMMARY | ~2019-06-25 | XMS | Encounter Summary ---
Demographics + + + | Address | [address] | | | [place] [address] | + + + | Home Phone [...] [place], [place] | | | | | [address] | | + + + + + | Ellie Vang | ECON | Unknown | | + + + + + Care Team Providers + +------+ + | Care Boarder Steam Name | Role | Phone | + [...] | | bypass | [place], [place] | [facility] Center | | | | | Nausea and | [address] | for Health | | | | | vomiting, | Phone: | and Healing, | | | | | intractabili | | Building 2 | | | | | ty of | Fax: | [place], [place] | | | | | vomiting not | [phone] | [address] | | | | | specified, | | Phone: | | | | | unspecified | | [phone] | | | | | vomiting | | Fax: | | | | | type | | [phone] | | | | | Decreased | [...] | | | | | | DILATION MS | | | | | | | UPPER GI | | | | | | | ENDOSCOPY,BI | | | | | | | OPSY MS UP | | | | | | [...] | | 2017 | | Center at [facility] [address] | MD [address] | | | | | [address] | [place], [place] | | | | | Mailcode: [place] | [address] | | | | | for Health and | | | | | | [address] [address] | | | | | | [place], [place] | | | | | | [address] | | | | | | [phone] | | | +--------+ + + + [...] Rd | | | | | | [place], [place] | | | | | | [address] | | | | | | [phone] | | | | | | | | +--------+ + + + + | 08/19/ | Surgery | Surgery | Chilo | OPEN VENTRAL HERNIA | 2019 | | | Jorje, MD [address] | REPAIR WITH | | | | | [address] | BIOLOGICAL MESH | | | | | [place], [place] | | | | | | [address] | | | | | | [phone] | | | | | | | | +--------+ + + + + | 09/15/ | Office | Cardiology | Randell Franks, | | | 2020 | Visit | | [address] | | | | | | [place], [place] | | | | | | [address] | | | | | | [phone] | | | | | | | [...]
--- OUTSIDE RECORDS SUMMARY | ~2019-06-25 | XMS | Encounter Summary ---
Demographics + + + | Address | [address] | | | [place] [address] | + + + | Home Phone [...] | Author | [facility] | | | and Jeffana | + + + | Organization | [facility] | | | and Jeffana [...] Team Providers + +------+ + | Care Workday Consultant Name | Role | Phone | [...] | | (DVT) of | [address] | [place], [place] | | | | | left lower | [address] | [address] | | | | | extremity, | [place] | Phone: | | | | | unspecified | [place], [place] | [phone] | | | | | chronicity, | [address] | Fax: | | | | | unspecified | Phone: | [phone] | | | | | vein (HCC) | [phone] | | | | | | Procedures | Fax: | | | | | | IR Removal | [phone] | | | | | | Fibrin [...] | | (DVT) of | [address] | [place], [place] | | | | | left lower | [address] | [address] | | | | | extremity, | [address] | Phone: | | | | | unspecified | [place], [place] | [phone] | | | | | chronicity, | [address] | Fax: | | | | | unspecified | Phone: | [phone] | | | | | vein (HCC) | [phone] | | | | | | Procedures | Fax: | | | | | | IR Removal | [phone] | | | | | | Fibrin | | | | | | | Sheath/Clot | | | | | | | on Device | | | +--------+--------+ + + + + Encounter Details +--------+ + + + + | Date | Type | Department | Care Team | Description | +--------+ + + + + | 06/22/ | Hospital | [facility] | Dharmesh Melchor | Deep vein thrombosis | | 2019 | Encounter | CENTER CV INTRA OP | MD Natan [address] | (DVT) of left lower | | | | [address] | [address] | extremity, | | | | [place], [place] | [place] [address] | unspecified | | | | [address] | [phone] | chronicity, | | | | [phone] | | unspecified vein | | | | | Christian Dawson MD | (HCC) | | | | | [address] | | | | | | [place], [place] | | | | | | [address] | | | | | | | [...] notice any of the signs, contact the [facility] at between 8:00 am and 5:00 [...] | | 0 | | | | Bopbuqp-Fomjhwsen-Vp | mouth 2 times daily. | | [...] + + +---------+ + + | thyroid (UNIFIED COMMUNICATIONS ENGINEER | UNIFIED COMMUNICATIONS ENGINEER Thyroid 30 mg | | 0 | [...] + + | Performing | Address | City/State/[facility] | Phone Number | [...]
--- OUTSIDE RECORDS SUMMARY | ~2019-06-25 | XMS | Encounter Summary ---
Demographics + + + | Address | [address] | | | [place] [address] | + + + | Home Phone [...] [place], [place] | | | | | [address] | | + + + + + | Ellie Vang | ECON | Unknown | | + + + + + Care Team Providers + +------+ + | Care Senior Business Development Analyst Name | Role | Phone | + +------+ + | Fadi Goodrich DO | PCP | | + +------+ + Encounter Details +--------+ + + + + | Date | Type | Department | Care Team | Description | +--------+ + + + + | 10/27/ | Abstract | Digestive Health | Clinic, Surgery | | | 2018 | | [place] [facility] [address] | | | | | | [address] | | | | | | Mailcode: [place] | | | | | | [facility] and | | | | | | [facility] 2 | | | | | | [place], [place] | | | | | | [address] | | | | | | [phone] | | | +--------+ + + + [...] [place] | | | | | | [address] | | | | | | [phone] | | | | | | | | +--------+ + + + + | 08/19/ | Surgery | Surgery | Chilo, | OPEN VENTRAL HERNIA | | 2019 | | | MD Jorje [address] | REPAIR WITH | | | | | [address] | BIOLOGICAL MESH | | | | | [place], [place] | | | | | | [address] | | | | | | [phone] | | | | | | | | +--------+ + + + + | 09/15/ | Office | Cardiology | Randell Franks, | | | 2019 | Visit | | MD [address] | | | | | | Ave [place], [place] | | | | | | [address] | | | | | | [phone] | | | | | | | | +--------+ + + + + documented as of this encounter Visit Diagnoses Not on filedocumented in this encounter"
--- OUTSIDE RECORDS SUMMARY | ~2019-06-25 | XMS | Encounter Summary ---
Demographics + + + | Address | [address] | | | [place] [address] | + + + | Home Phone [...] [place], [place] | | | | | [address] | | + + + + + | Ellie Vang | ECON | Unknown | | + + + + + Care Team Providers + +------+ + | Care Dosimetrist Name | Role | Phone | + [...] | | | | | essential | [address] | [address] | | | | | hypertension | [address], | Ave | | | | | Type II or | [address] | [place], [place] | | | | | unspecified | [place], [place] | [address] | | | | | type | [address] | Phone: | | | | | diabetes | Phone: | [phone] | | | | | mellitus | [phone] | Fax: | | | | | without | Fax: | [phone] | | | | | mention of | [phone] | | | | | | complication [...] | 2015 | Visit | Preventive at [facility] | MD [address] | mellitus (HCC) | | | | [address] | Ave [place], [place] | (Primary Dx) | | | | Mailcode: [facility] | [address] | | | | | [facility] | [phone] | | | | | and Healing, | | | | | | Building [address] | | | | | | [place], [place] | | | | | | [address] | | | | | | [phone] | | | +--------+---------+ + + + [...] Rd | | | | | | [place] | | | | | | [address] | | | | | | [phone] | | | | | | | | +--------+ + + + + | 08/19/ | Surgery | Surgery | Chilo, | OPEN VENTRAL HERNIA | | 2019 | | | MD [address] | REPAIR WITH | | | | | [address] | BIOLOGICAL MESH | | | | | [place], [place] | | | | | | [address] | | | | | | [phone] | | | | | | | | +--------+ + + + + | 09/15/ | Office | Cardiology | Randell Franks, | | | 2019 | Visit | | [address] | | | | | | [place], [place] | | | | | | [address] | | | | | | [phone] | | | | | | | [...] | [facility] | [address] [facility] | [place] [address] | | | SERVICES, CORE | PARK [...] | + + + + + | [facility] | [address] | [place] [address] | | | SERVICES, SPECIAL | PARK [...]
--- OUTSIDE RECORDS SUMMARY | ~2019-06-25 | XMS | Encounter Summary ---
Demographics + + + | Address | [address] | | | [place] [address] | + + + | Home Phone [...] [place], [place] | | | | | [address] | | + + + + + [...] | | 2014 | | Center at [facility] [address] | [facility] [address] | | | | | [address] | [place], [place] | | | | | Mailcode: Center | [address] | | | | | for Health and | | | | | | [place] [address] | | | | | | [place], [place] | | | | | | [address] | | | | | | [phone] | | | +--------+ + + + [...] Rd | | | | | | [place], [place] | | | | | | [address] | | | | | | [phone] | | | | | | | | +--------+ + + + + | 08/19/ | Surgery | Surgery | Chilo, | OPEN VENTRAL HERNIA | | 2019 | | | MD [address] | REPAIR WITH | | | | | [address] | BIOLOGICAL MESH | | | | | [place], [place] | | | | | | [address] | | | | | | [phone] | | | | | | | | +--------+ + + + + | 09/15/ | Office | Cardiology | Tiny, Randell, | | | 2019 | Visit | | [address] | | | | | | [place] | | | | | | [address] | | | | | | [phone] | | | | | | | | +--------+ + + + + documented as of this encounter Visit Diagnoses Not on filedocumented in this encounter"
--- OUTSIDE RECORDS SUMMARY | ~2019-06-25 | XMS | Encounter Summary ---
Demographics + + + | Address | [address] | | | [place] [address] | + + + | Home Phone [...] [place], [place] | | | | | [address] | | + + + + + [...] | | | 2017 | Event | [facility] | Joann Person MD,PhD | | | | | Admitting Desk | [address] | | | | | Located on the 9 | [facility] [place] | | | | | floor [address] [facility] | [address] | | | | | [address] | [phone] | | | | | [place], [place] | | | | | | [address] | Graham Mckinney, | | | | | | [facility] [facility] [address] | | | | | | [address] | | | | | | [place], [place] | | | | | | [address] | | | | | | [phone] | | | | | | | [...] | | Endotracheal Tube; 7; Oral; | [employer]ER | [employer]ER | | | Cuffed; 06/23/18; 1542 | [...] | | | | | | [place] | | | | | | [address] | | | | | | [phone] | | | | | | | | +--------+ + + + + | 08/19/ | Surgery | Surgery | Chilo | OPEN VENTRAL HERNIA | | 2019 | | | MD [address] | REPAIR WITH | | | | | [address] | BIOLOGICAL MESH | | | | | [place] | | | | | | [address] | | | | | | [phone] | | | | | | | | +--------+ + + + + | 09/15/ | Office | Cardiology | Randell Franks, | | | 2019 | Visit | | [address] | | | | | | [place], [place] | | | | | | [address] | | | | | | [phone] | | | | | | | [...] bed and dolores for RSI. Performed by [employer] | | | YINKA, GRAHAM E | [...]
--- OUTSIDE RECORDS SUMMARY | ~2019-06-25 | XMS | Encounter Summary ---
Demographics + + + | Address | [address] | | | [place] [address] | + + + | Home Phone [...] [place], [place] | | | | | [address] | | + + + + + | Ellie Vang | ECON | Unknown | | + + + + + Care Team Providers + +------+ + | Care Diet Counselor Name | Role | Phone | [...] | | 2018 | | Center at [facility] [address] | MD [address] | | | | | [address] | [place], [place] | | | | | Mailcode: [place] | [address] | | | | | [facility] and | [phone] | | | | | [address] [address] | | | | | | [place], [place] | | | | | | [address] | | | | | | [phone] | | | +--------+--------+ + + + [...] [place] | | | | | | [address] | | | | | | [phone] | | | | | | | | +--------+ + + + + | 08/19/ | Surgery | Surgery | Chilo, | OPEN VENTRAL HERNIA | | 2019 | | | MD [address] | REPAIR WITH | | | | | [address] | BIOLOGICAL MESH | | | | | [place], [place] | | | | | | [address] | | | | | | [phone] | | | | | | | | +--------+ + + + + | 09/15/ | Office | Cardiology | Randell Franks, | | | 2019 | Visit | | [address] | | | | | | [place], [place] | | | | | | [address] | | | | | | [phone] | | | | | | | | +--------+ + + + + documented as of this encounter Visit Diagnoses Not on filedocumented in this encounter"
--- OUTSIDE RECORDS SUMMARY | ~2019-06-25 | XMS | Encounter Summary ---
Demographics + + + | Address | [address] | | | [place] [address] | + + + | Home Phone [...] [place], [place] | | | | | [address] | | + + + + + | Ellie Vang | ECON | Unknown | | + + + + + Care Team Providers + +------+ + | Care Marketing Account Manager Name | Role | Phone | + +------+ + | Fadi Goodrich DO | PCP | | + +------+ + Encounter Details +--------+ + + + + | Date | Type | Department | Care Team | Description | +--------+ + + + + | 10/27/ | Telephone | Pain Center at [facility] | Leslie Mistry, | | | 2017 | | Floor [address] | PhD [address] [facility] | | | | | [address] Mailcode: | [address] | | | | | [address] [place], [place] | | | | | Health and Healing, | [address] | | | | | [facility] | [phone] | | | | | Floor [place], [place] | | | | | | [address] | | | | | | [phone] | | | +--------+ + + + [...] Rd | | | | | | [place], [place] | | | | | | [address] | | | | | | [phone] | | | | | | | | +--------+ + + + + | 08/19/ | Surgery | Surgery | Chilo, | OPEN VENTRAL HERNIA | | 2019 | | | MD Jorje [address] | REPAIR WITH | | | | | [address] | BIOLOGICAL MESH | | | | | [place], [place] | | | | | | [address] | | | | | | [phone] | | | | | | | | +--------+ + + + + | 09/15/ | Office | Cardiology | Randell Franks, | | | 2019 | Visit | | MD [address] | | | | | | Ave [place], [place] | | | | | | [address] | | | | | | [phone] | | | | | | | | +--------+ + + + + documented as of this encounter Visit Diagnoses Not on filedocumented in this encounter"
--- OUTSIDE RECORDS SUMMARY | ~2019-06-25 | XMS | Encounter Summary ---
Demographics + + + | Address | [address] | | | [place] [address] | + + + | Home Phone [...] [place], [place] | | | | | [address] | | + + + + + | Ellie Vang | ECON | Unknown | | + + + + + Care Team Providers + +------+ + | Care Curator Of Education Name | Role | Phone | [...] | | | | | | | [place], [place] | | | | | | | [address] | | | | | | | Phone: | | | | | | | [phone] | | | | | | | Fax: | | | | | | | [phone] | +--------+--------+ + + + + Encounter [...] | | | [address] | [facility] [place] | Dx) | | | | Mailcode: L223A | [address] | | | | | [facility] | [phone] | | | | | [address] [facility] [place] | | | | | | [address] | | | | | | [phone] | | | +--------+---------+ + + + [...] Rocha MD,MPH - 11/05/2015 2:09 PM PDT [facility] Department of Surgery EGS/TRAUMA Surgery [...] 500 mg by mouth once daily. CALCIUM CRB&AJQ-E6-XQG69-GENIS ORAL Take 1 tablet by mouth two [...] were answered. Christian Rocha MD MPH FACS [facility] laborer tanbark Trauma, Critical Care & Acute Care Surgery [facility] [employer] [phone] documented in thi s encounter Plan of [...] Rd | | | | | | [place], [place] | | | | | | [address] | | | | | | [phone] | | | | | | | | +--------+ + + + + | 08/19/ | Surgery | Surgery | Chilo, | OPEN VENTRAL HERNIA | | 2019 | | | MD [address] | REPAIR WITH | | | | | [address] | BIOLOGICAL MESH | | | | | [place], [place] | | | | | | [address] | | | | | | [phone] | | | | | | | | +--------+ + + + + | 09/15/ | Office | Cardiology | Randell Franks, | | | 2019 | Visit | | MD [address] | | | | | | [address] [place], [place] | | | | | | [address] | | | | | | [phone] | | | | | | | | +--------+ + + + + documented as of this encounter Visit Diagnoses + + | Diagnosis | + + | Ventral hernia without obstruction or gangrene - Primary Ventral hernia, unspecified, | | without mention of obstruction or gangrene | + + documented in this encounter"
--- OUTSIDE RECORDS SUMMARY | ~2019-06-25 | XMS | Encounter Summary ---
Demographics + + + | Address | [address] | | | [place] [address] | + + + | Home Phone [...] + | Katalina Padilla | ECON | [address] | | | | | [place], [place] | | | | | [address] | | + + + + + | Ellie Vang | ECON | Unknown | | + + + + + Care Team Providers + +------+ + | Care Take Down Inspector Name | Role | Phone | [...] Pre-operative | | 2019 | cheduled | [facility] at | | evaluation | | | | [facility] | | | | | | [address] | | | | | | Mail Code: OC8PM | | | | | | [facility] | | | | | | and Healing, | | | | | | Building [address] | | | | | | [place], [place] | | | | | | [address] | | | | | | [phone] | | | +--------+ + + + [...] not have access to check in ti [facility], and we encourage you to contact [...] MG TABLET ATENOLOL 50 MG TABLET CALCIUM CRB&LLO-Y2-TOH32-GENIS ORAL CYANOCOBALAMIN (VIT B-12) 1,000 MCG TABLET [...] as Uber/Lyft), or public transportation. An Uber/Lyft/local intermodal truck driver does not count as the [...] it is after office hours, call the [facility] tier lift truck operator at [phone] and ask them to page him or [...] [place] | | | | | | [address] | | | | | | [phone] | | | | | | | | +--------+ + + + + | 08/19/ | Surgery | Surgery | Chilo, | OPEN VENTRAL HERNIA | | 2019 | | | MD Jorje [address] | REPAIR WITH | | | | | [address] | BIOLOGICAL MESH | | | | | [place], [place] | | | | | | [address] | | | | | | [phone] | | | | | | | | +--------+ + + + + | 09/15/ | Office | Cardiology | Randell Franks, | | | 2019 | Visit | | MD [address] | | | | | | Ave [place], [place] | | | | | | [address] | | | | | | [phone] | | | | | | | | +--------+ + + + + documented as of this encounter Visit Diagnoses Not on filedocumented in this encounter
--- OUTSIDE RECORDS SUMMARY | ~2019-06-25 | XMS | Encounter Summary ---
Demographics + + + | Address | [address] | | | [place] [address] | + + + | Home Phone [...] [place], [place] | | | | | [address] | | + + + + + | Ellie Vang | ECON | Unknown | | + + + + + Care Team Providers + +------+ + | Care Die Sizer Name | Role | Phone | [...] | | 2019 | | Preventive at [facility] | [address] | (PHENTERMINE 37.5 mg | | | | [address] | Ave [facility] [place] | ) | | | | Mailcode: [facility] | [address] | | | | | [facility] | [phone] | | | | | and Erick, | | | | | | [address] | | | | | | [place], [place] | | | | | | [address] | | | | | | [phone] | | | +--------+--------+ + + + [...] | | | | | | [place], [place] | | | | | | [address] | | | | | | [phone] | | | | | | | | +--------+ + + + + | 08/19/ | Surgery | Surgery | Chilo, | OPEN VENTRAL HERNIA | | 2019 | | | MD Jorje [address] | REPAIR WITH | | | | | [address] | BIOLOGICAL MESH | | | | | [place], [place] | | | | | | [address] | | | | | | [phone] | | | | | | | | +--------+ + + + + | 09/15/ | Office | Cardiology | Randell Franks, | | | 2019 | Visit | | [address] | | | | | | [place], [place] | | | | | | [address] | | | | | | [phone] | | | | | | | | +--------+ + + + + documented as of this encounter Visit Diagnoses Not on filedocumented in this encounter"
--- OUTSIDE RECORDS SUMMARY | ~2019-06-25 | XMS | Encounter Summary ---
Demographics + + + | Address | [address] | | | [place] [address] | + + + | Home Phone [...] Team Providers + +------+ + | Care Unemployment Specialist Name | Role | Phone | [...] [facility] | MD [address] | | | | | [address] | Ave [place], [place] | | | | | Mailcode: [facility] | [address] | | | | | [facility] | [phone] | | | | | and Healing, | | | | | | [address] | | | | | | [place], [place] | | | | | | [address] | | | | | | [phone] | | | +--------+ + + + [...] Rd | | | | | | [place], [place] | | | | | | [address] | | | | | | [phone] | | | | | | | | +--------+ + + + + | 08/19/ | Surgery | Surgery | Chilo, | OPEN VENTRAL HERNIA | | 2019 | | | MD Jorje [address] | REPAIR WITH | | | | | [address] | BIOLOGICAL MESH | | | | | [place], [place] | | | | | | [address] | | | | | | [phone] | | | | | | | | +--------+ + + + + | 09/15/ | Office | Cardiology | Randell Franks, | | | 2019 | Visit | | MD [address] | | | | | | Ave [place], [place] | | | | | | [address] | | | | | | [phone] | | | | | | | | +--------+ + + + + documented as of this encounter Visit Diagnoses Not on filedocumented in this encounter"
--- OUTSIDE RECORDS SUMMARY | ~2019-06-25 | XMS | Encounter Summary ---
Demographics + + + | Address | [address] | | | [place] [address] | + + + | Home Phone [...] [place], [place] | | | | | [address] | | + + + + + | Ellie Vang | ECON | Unknown | | + + + + + Care Team Providers + +------+ + | Care Graphic Design Teacher Name | Role | Phone | [...] + + | 03/01/ | Hospital | [facility] [address] | Ion Castanon, | | | 2018 - | Encounter | [address] | [address] | | | | | [place], [place] | [place], [place] | | | 03/03/ | | [address] | [address] | | | 2017 | | [phone] | [phone] | | | | | | | [...] [facility] GREENE RED SURGERY INPATIENT DISCHARGE SUMMARY Author: KAIN [...] to a bariatric full liquid diets. Our [facility] dietitian was consulted and they discussed her [...] at minimum. 5. Follow with PCP for Distribution Tech within 1 - 2 weeks of discharge [...] mg by mouth two times daily. CALCIUM CRB&WIF-N9-LSQ23-GENIS ORAL Take 2 tablets by mouth two [...] or Kefir, [place] Yogurt, and Chioban i Tanzanian Yogurt are common brands with beneficial probiotics. [...] are available over the counter at most the [facility] [employer] stores. Nausea/Vomiting/Difficulty Swallowing Nausea/Vomiting/Difficulty swallowing: Could be [...] hours per your instructions. Some medications, like [place], have Tylenol in it. Make sure you [...] hours by calling the surgery office at [phone]. - After hours, weekends and holidays, you may call the hospital scouring train operator chief at [phone] an d have the lamination machine operator Red Surgery Team paged. OTHER DISCHARGE ORDERS [...] at minimum. 5. Follow with PCP for Distribution Tech within 1 - 2 weeks of discharge [...] Department Dept Phone Center 03/10/2018 1:30 PM [facility] at [facility] 6th Floor [phone] FO OD AND NUT 03/10/2018 3:05 PM [facility] at [facility] 6th Floor [phone] [facility] 04/01/2018 10:30 AM [facility] at [facility] 6th Floor [phone] FO OD AND NUT 04/01/2018 11:00 AM Ion Castanon [facility] 6th Floor [phone] [facility] 05/27/2018 2:30 PM [facility] at [facility] 6th Floor [phone] FO OD AND NUT 05/27/2018 3:05 PM [facility] at [facility] 6th Floor [phone] [facility] 05/27/2018 4:30 PM [facility] at [facility] 15th Floor [phone] Comprehensiv 06/04/2018 10:35 AM Randell Franks Cardiology Preventive at [facility] [phone] Cardiology Discharging Physician: KAIN Agee Attending Physician: Ion Castanon MD [facility] Surgery Pager# [phone] 9:50 AM 03/03/2018 documented in this enco [...] | | 0 | | | | CRB&HKJ-T8-XDW98-GEN | mouth two times | | | [...] under | 11.2 mL | 0 | 06/18/20 | | | mg/0.4 mL | the [...] date of discharge 03/03/18 PARTHA Calixto MS3 [facility] [employer] Demarcus Menon [...] for care ride home (pt lives in [place]) Demarcus Alas M.D. General Surgery Resident PGY-1 Pager: [phone] Ion Ferrari MD - 10:00 AM [address] [...] Rd | | | | | | [place], [place] | | | | | | [address] | | | | | | [phone] | | | | | | | | +--------+ + + + + | 08/19/ | Surgery | Surgery | Chilo | OPEN VENTRAL HERNIA | | 2019 | | | MD [address] | REPAIR WITH | | | | | [address] | BIOLOGICAL MESH | | | | | [place], [place] | | | | | | [address] | | | | | | [phone] | | | | | | | | +--------+ + + + + | 09/15/ | Office | Cardiology | Randell Franks, | | | 2019 | Visit | | [address] | | | | | | [place], [place] | | | | | | [address] | | | | | | [phone] | | | | | | | [...] MARQUAM | [address] | [place], [place] | | | JUSTINE DAWN OF JAKY | [facility] | [address] | | | TESTS | | | [...] AMES | [address] | [place], [place] | | | [facility] POINT [facility] CARE | [address] | [address] | | | TESTS | | | [...] MARQUAM | [address] | [place], [place] | | | [facility] [facility]ARE | [address] | [address] | | | TESTS | | | [...] MARQUAM | [address] | [place], [place] | | | JUSTINE DAWN OF JAKY | [facility] | [address] | | | TESTS | | | [...] AMES | [address] | [place], [place] | | | [facility] [facility]ARE | [address] | [address] | | | TESTS | | | [...] MARQUAM | [address] | [place], [place] | | | JUSTINE DAWN OF CARE | [address] | [address] | | | TESTS | | | [...] (H) | 70 - 99 mg/dL | MNORIN - | | | GLUCOSE, | | [...] MARQUAM | [address] | [place], [place] | | | JUSTINE DAWN OF CARE | [facility] | [address] | | | TESTS | | | [...] AMES | [address] | [place], [place] | | | [place] POINT OF CARE | [address] | [address] | | | TESTS | | | [...] MARQUAM | [address] | [place], [place] | | | [place] [facility]INT OF CARE | [address] | [address] | | | TESTS | | | [...] (H) | 70 - 99 mg/dL | MNORIN - | | | GLUCOSE, | | [...] - MARQUAM | [address] | [place], [place] | | | JUSTINE DAWN OF JAKY | [facility] | [address] | | | TESTS | | | [...] AMES | [address] | [place], [place] | | | [place] POINT OF CARE | [address] | [address] | | | TESTS | | | [...] MARQUAM | [address] | [place], [place] | | | [facility] [facility]INT OF CARE | [address] | [address] | | | TESTS | | | [...] MARQUAM | [address] | [place], [place] | | | [facility] [facility]INT OF CARE | [address] | [address] | | | TESTS | | | [...] + + + | NKECHI AMES | [address] | [place], [place] | | | [place] POINT OF CARE | [address] | [address] | | | TESTS | | | [...] MARQUAM | [address] | [place], [place] | | | [facility] [facility] CARE | [address] | [address] | | | TESTS | | | [...] MARQUAM | [address] | [place], [place] | | | [facility] POINT OF CARE | [address] | [address] | | | TESTS | | | [...] AMES | [address] | [place], [place] | | | JUSTINE DAWN OF CARE | [address] | [address] | | | TESTS | | | [...] MARQUAM | [address] | [place], [place] | | | [facility] [facility]INT [facility] CARE | [address] | [address] | | | TESTS | | | [...] - MARQUAM | [address] | [place], [place] | | | [facility] POINT OF CARE | [address] | [address] | | | TESTS | | | [...] AMES | [address] | [place], [place] | | | JUSTINE DAWN OF CARE | [address] | [address] | | | TESTS | | | [...] MARQUAM | [address] | [place], [place] | | | [facility] [facility]INT [facility] CARE | [address] | [address] | | | TESTS | | | [...] MARQUAM | [address] | [place], [place] | | | [facility] [facility]INT OF CARE | [address] | [address] | | | TESTS | | | [...] + + + | NKECHI AMES | [address] | [place], [place] | | | [facility] POINT OF CARE | [address] | [address] | | | TESTS | | | [...] MARQUAM | [address] | [place], [place] | | | [facility] [facility]INT OF CARE | [address] | [address] | | | TESTS | | | [...] MARQUAM | [address] | [place], [place] | | | [facility] POINT OF CARE | [address] | [address] | | | TESTS | | | [...] + + + | NKECHI AMES | [address] | [place], [place] | | | [facility] [facility] | [address] | [address] | | | TESTS | | | | + + + + + EGD (ESOPHAGOGASTRODUODENOSCOPY) (03/01/2018 11:21 AM PDT) + + + | Narrative | Performed At | + + + | Ion Castanon MD 03/01/2018 12:25 PM Date of Procedure: | | | 03/01/18 Primary Surgeon: Ion Castanon MD Co Surgeon or | | | assistant director of residence life: Eldon Gonzalez MD, Chief Resident Alexx | [...] The jejunum was divided with 60 mm [place] stapler with white | | | load [...] created in each limb and a 60mm [place] stapler | | | with white load was fired to create a odgm-ht-arnm | | | jejunojejunostomy. The anastamosis was confirmed to be widely | | | patent and hemostatic. The common enterotomy was closed by placing | | | 2 stay sutures along the enterotomy for retraction and firing an | | | [place] 60mm stapler with white load across the [...] | | | was entered. The 60mm [place] stapler with blue load was placed | [...] blue load of the 60mm stapler. The [place] was then fired | | | longitudinally towards the angle of His to create the gastric pouch, | | | leaving the gastrotomy from foreign body removal, on the pouch. | | | Dissection was performed retrogastric to connect posterior and | | | anterior dissection planes and ensure adequate fundus exclusion. | | | Additional fires of the [place] stapler were performed with blue | | [...] with | | | 5 mm clip senior analyst developer. A 25mm Orvil was passed transorally by [...] was closed with 60mm | | | [place] stapler with a white load. Medially and [...] present | | | as my assistant director of residence life for the entire procedure, given the technically | | | challenging nature of this procedure. She assisted in all critical | | | steps of the procedure. Dr. Gonzalez was present for endoscopy at the | | | end of the procedure. Ion Castanon MD, FACS, [facility] | | | Bariatric Surgery [...] Co Surgeon or | | | assistant director of residence life: Eldon Gonzalez MD, Chief Resident Alexx | [...] The jejunum was divided with 60 mm [place] stapler with white | | | load [...] created in each limb and a 60mm [place] stapler | | | with white load was fired to create a bczw-sy-abfe | | | jejunojejunostomy. The anastamosis was confirmed to be widely | | | patent and hemostatic. The common enterotomy was closed by placing | | | 2 stay sutures along the enterotomy for retraction and firing an | | | [place] 60mm stapler with white load across the [...] | posterior to the nish limb. A NatCrelow liver retractor was | | | placed [...] | | | was entered. The 60mm [place] stapler with blue load was placed | [...] blue load of the 60mm stapler. The [place] was then fired | | | longitudinally towards the angle of His to create the gastric pouch, | | | leaving the gastrotomy from foreign body removal, on the pouch. | | | Dissection was performed retrogastric to connect posterior and | | | anterior dissection planes and ensure adequate fundus exclusion. | | | Additional fires of the [place] stapler were performed with blue | | [...] with | | | 5 mm clip senior analyst developer. A 25mm Orvil was passed transorally by [...] was closed with 60mm | | | [place] stapler with a white load. Medially and [...] present | | | as my assistant director of residence life for the entire procedure, given the technically | | | challenging nature of this procedure. She assisted in all critical | | | steps of the procedure. Dr. Gonzalez was present for endoscopy at the | | | end of the procedure. Ion Castanon MD, FACS, [facility] | | | Bariatric Surgery | | [...] AMES | [address] | [place], [place] | | | JUSTINE DAWN OF JAKY | [address] | [address] | | | TESTS | | | [...] | | | | HOURS NEEDED, Starting Tu | | PM PDT | | | [...] oral, DAILY, First dose on Thu | 18 8:50 | | | | [...] | | | | Starting 03/01/18 at 0944, | | | | | [...]
--- OUTSIDE RECORDS SUMMARY | ~2019-06-25 | XMS | Encounter Summary ---
Demographics + + + | Address | [address] | | | [place] [address] | + + + | Home Phone [...] [place], [place] | | | | | [address] | | + + + + + | Ellie Vang | ECON | Unknown | | + + + + + Care Team Providers + +------+ + | Care Home Worker Name | Role | Phone | [...] | [facility] | | | with SHIRRING MACHINE OPERATOR AUTOMATIC | | hypertension | [address] | [address] | | | | | Right | [address] | [address] | | | | | heart | [place], [place] | Mailcode: | | | | | failure | [address] | Center for | | | | | ([facility]) Type | Phone: | Health and | | | | | 2 diabetes | [phone] | Healing, | | | | | mellitus | Fax: | [address] | | | | | without | [phone] | [place], [place] | | | | | complication | | [address] | | | | | , with | | Phone: | | | | | long-term | | | | | | | current use | | Fax: | | | | | of insulin | | [phone] | | | | | ([facility]) | | | | | [...] | | 2 diabetes | JEAN, | [place], [place] | | | | | mellitus | [place] [address] | [address] | | | | | without | Phone: | Phone: | | | | | complication | [phone] | [phone] | | | | | (HCC) | Fax: | Fax: | | | | | Procedures | [phone] | [phone] | | | | | [place] EST | | | | | | [...] 2017 | Visit | Preventive at [facility] | [address] | hypertension | | | | [address] | Ave [place], [place] | (Primary Dx); Right | | | | Mailcode: [facility] | [address] | heart failure (HCC); | | | | [facility] | [phone] | Type 2 diabetes | | | | and Healing, | | mellitus without | | | | [address] | | complication, with | | | | [place], [place] | | long-term current | | | | [address] | | use of insulin (HCC) | | | | [phone] | | | +--------+---------+ + + + [...] 81 mg by mouth once daily. CALCIUM CRB&HQP-G9-DWW74-GENIS ORAL Take 2 tablets by mouth two [...] then she has worked closely with her [facility] doctor and has been been able [...] 12 CREATININE PLASMA (LAB) 0.79 EGFR - MALTESE >60 EGFR NON -MALTESE >60 GLUCOSE, PLASMA (LAB) 170 (H) CALCIUM, [...] Rd | | | | | | [place], [place] | | | | | | [address] | | | | | | [phone] | | | | | | | | +--------+ + + + + | 08/19/ | Surgery | Surgery | Chilo, | OPEN VENTRAL HERNIA | | 2019 | | | MD Jorje [address] | REPAIR WITH | | | | | [address] | BIOLOGICAL MESH | | | | | [facility] [place] | | | | | | [address] | | | | | | [phone] | | | | | | | | +--------+ + + + + | 09/15/ | Office | Cardiology | Randell Franks, | | | 2019 | Visit | Analisa CARVAJAL [address] | | | | | | Ave [place], [place] | | | | | | [address] | | | | | | [phone] | | | | | | | [...] CENTER LABORATORY | [address] | [place] [address] | | | LYDIA RANGEL | CLARENCE [...] [facility] | [address] | [place], [place] | | | SERVICES, LIPID | [address] | [address] | | + + + + + [...] [facility] | [address] | [place] [address] | | | SERVICES, SPECIAL | PARK [...] NKECHI ROBERTS | [address] | [place] [address] | | | SERVICES, CORE | [address] [...]
--- OUTSIDE RECORDS SUMMARY | ~2019-06-25 | XMS | Encounter Summary ---
Demographics + + + | Address | [address] | | | [place] [address] | + + + | Home Phone [...] [place], [place] | | | | | [address] | | + + + + + | Ellie Vang | ECON | Unknown | | + + + + + Care Team Providers + +------+ + | Care Lock Plater Name | Role | Phone | + +------+ + | Fadi Goodrich DO | PCP | | + +------+ + Encounter Details +--------+------+ + + + | Date | Type | Department | Care Team | Description | +--------+------+ + + + | 08/28/ | Lab | Laboratory at [facility] | | Type 2 diabetes | | 2015 | | [address] | | mellitus (HCC) | | | | [place], [place] | | | | | | [address] | | | | | | [phone] | | | +--------+------+ + + + [...] Rd | | | | | | [place], [place] | | | | | | [address] | | | | | | [phone] | | | | | | | | +--------+ + + + + | 08/19/ | Surgery | Surgery | Chilo, | OPEN VENTRAL HERNIA | | 2019 | | | MD Jorje [address] | REPAIR WITH | | | | | [address] | BIOLOGICAL MESH | | | | | [place], [place] | | | | | | [address] | | | | | | [phone] | | | | | | | | +--------+ + + + + | 09/15/ | Office | Cardiology | Randell Franks, | | | 2019 | Visit | | [address] | | | | | | [place], [place] | | | | | | [address] | | | | | | [phone] | | | | | | | [...] [facility] | [address] [facility] | [place] [address] | | | [address]IA RANG[address] | CLARENCE [...] | + + + + + | [facility] | [address] | [place] [address] | | | SERVICES, SPECIAL | PARK [...]
--- OUTSIDE RECORDS SUMMARY | ~2019-06-25 | XMS | Encounter Summary ---
Demographics + + + | Address | [address] | | | [place] [address] | + + + | Home Phone [...] [place], [place] | | | | | [address] | | + + + + + | Ellie Vang | ECON | Unknown | | + + + + + Care Team Providers + +------+ + | Care Parking Lot Chauffeur Name | Role | Phone | + [...] | | | | | bypass | [place], | Mailcode: | | | | | Nausea and | [place] | [address] [facility] | | | | | vomiting, | [address] | Hospital | | | | | intractabili | Phone: | [place], [place] | | | | | ty of | | [address] | | | | | vomiting not | Fax: | Phone: | | | | | specified, | [phone] | [phone] | | | | | unspecified | | Fax: | | | | | vomiting | | [phone] | | | | | type | [...] | | | | | | [place] | | | | | | | CT SCAN OF | | | | | | | ABDOMEN | | | | | | | [place] | | | | | | [...] | | | | | bypass | [place], | Mailcode: | | | | | Nausea and | [place] | [facility] | | | | | vomiting, | [address] | for Health | | | | | intractabili | Phone: | and Healing, | | | | | ty of | [phone] | Building 1, | | | | | vomiting not | Fax: | 5th Floor | | | | | specified, | [phone] | [place], [place] | | | | | unspecified | | [address] | | | | | vomiting | | Phone: | | | | | type | | [phone] | | | | | Diarrhea, | [...] | | | | | bypass | [place], | [address] | | | | | Nausea and | [place] | for Health | | | | | vomiting, | [address] | and Healing, | | | | | intractabili | Phone: | Building 2 | | | | | ty of | | [place], [place] | | | | | vomiting not | Fax: | [address] | | | | | specified, | [phone] | Phone: | | | | | unspecified | | [phone] | | | | | vomiting | | Fax: | | | | | type | | [phone] | | | | | Diarrhea, | [...] | [facility] | | | with BOTTLER | | hypertension | [address] | [address] | | | | | Right | [address] | [address] | | | | | heart | [facility] [place] | Mailcode: | | | | | failure | [address] | Center for | | | | | ([facility]) Type | Phone: | Health and | | | | | 2 diabetes | [phone] | Healing, | | | | | mellitus | Fax: | Building 2 | | | | | without | [phone] | [facility] [place] | | | | | complication | | [address] | | | | | , with | | Phone: | | | | | long-term | | | | | | | current use | | Fax: | | | | | of insulin | | [phone] | | | | | ([facility] [...] | Center at [facility] [address] | AGAC[address] | gastric bypass | | | | [address] | Ave [place], [place] | (Primary Dx); Nausea | | | | Mailcode: Center | [address] | and vomiting, | | | | for Health and | | intractability of | | | | Healing, [address] | | vomiting not | | | | [place], [place] | | specified, | | | | [address] | | unspecified vomiting | | | | [phone] | | type; Diarrhea, | | | [...] getting fluids at a local clinic in [place] -I will contact you if further testing is indicated -follow up with once of our surgeons once testing is complete -get some protein de la o--isopure or premier protein de la o. documented in this encounter Progress Notes Melissa Garay RN - 03/01/2019 1:50 PM PDTSpoke with patient's PCP office [phone] and notified them that Infusion unit at [facility] (fax [phone]) requires a provider with privileges there to sign the IV infusion orders. Since Dr. Cardenas is out on maternity leave, SOFI Ulrich will check with provider covering. Infusion order and chart not e faxed to PCP at [phone]. Patient notified. Charli Murillo - 03/01/2019 1:50 [...] Dr. Andie Brian Incisional hernia repair 03/01/2015 [facility]/ Dr. Cantu. Primary fascial closure and scar excision Lap gastric byp, and nilesh-en-y gastroenterostomy w/ nilesh limb 150 cm or less 8 [facility] Social History Socioeconomic History [...] file Gets together: Not on file Attends sikhism service: Not on file Active member of club or organization: Not on file Attends meetings of clubs or organizations: Not on file Relationship status: Not on file Other Topics Concern Not on file Social History Narrative Updated 11/09/15 She lives in [place] with her mother and her sister (also her caregiver) lives in an apa rtment/duplex below. She has 2 grandchildren (age 4 and 7) who live with her daughter and son-in-law Her boyfriend lives in [place] HFpEF, DM2, HTN, Sleep Apnea (unable to [...] program here and refer her to our training specialist who also has expertise in [...] buccal film, , Disp: , Rfl: CALCIUM CRB&GZO-D9-KXM08-GENIS ORAL, Take 2 tablets by mouth two [...] be administered closer to her home in [place]. LR 1-2 L 3 times weekly, until [...] to plan and will call and/or send SingWho message if any issues. Start time 1422, end time 1455. I spent a total of 33 minutes face to face with this patie nt. Over 50% of visit was in counseling. ALBINA Perrin Bariatric Surgery Nurse Practitioner [facility] | [address] | [place] | [address] | documented in is encounter Plan of [...] | | | | | | [place], [place] | | | | | | [address] | | | | | | [phone] | | | | | | | | +--------+ + + + + | 08/19/ | Surgery | Surgery | Chilo, | OPEN VENTRAL HERNIA | | 2019 | | | MD Jorje [address] | REPAIR WITH | | | | | [address] | BIOLOGICAL MESH | | | | | [place], [place] | | | | | | [address] | | | | | | [phone] | | | | | | | | +--------+ + + + + | 09/15/ | Office | Cardiology | Randell Franks, | | | 2019 | Visit | | [address] | | | | | | [place], [place] | | | | | | [address] | | | | | | [phone] | | | | | | | [...] | | e | 2:41 PM | Nielsh-en-Y gastric | procedure are [...] |Preliminary: Jamel Flynn MD | |Dictation initiated: Jmael Flynn MD 03/22/2019 12:50 PM | + [...] BEHAVIORAL MEDICINE | [address] | [place] [address] | | | SERVICES, CORE | PARK [...] | | | | | determined by [facility] | | | | | | Laboratories. See | | | | | | Compliance Statement B: | | | | | | [employer]/CSPerformed | | | | | | by [facility],[address] | | | | | | [facility] | | | | | | [address] | | | | | | [phone].[facility] of southern new mexicolab. | | | | | | [facility], Ismael Willis MD, | | [...] [facility] | [address] | [place], [place] | | | UNIV PTH - INTFC | | [address] | | + + + + + [...] [facility] | | | (YEN NOAH) | [facility],[address] | | REG UNIV | | | SERUM | [place], [place] | | PTH - INTFC | | | | [address] | | | | | | [phone].[employer] TVuplab. | | | | | | Ismael [...] B: | | | | | | [employer] | | | | + + + + + + + + | Specimen | + + | Blood - Blood | | (substance) | + + + + + + + | Performing | Address | City/State/Zipcode | Phone Number | | Organization | | | | + + + + + | [facility] | [address] | [place], [place] | | | UNIV PTH - INTFC | | [address] | | + + + + + [...] [facility] | [address] | [place] [address] | | | CLAIRE, CORE | PARK [...] | + + + + + | [facility] | [address] [place] | [place] [address] | | | SERVICES, CORE | PARK [...] | | | | | determined by [employer] | | | | | | Laboratories. See | | | | | | Compliance Statement B: | | | | | | [employer]Excord[employer]/CSPerformed | | | | | | by [employer],[address] | | | | | | [facility] | | | | | | [address] | | | | | | [phone].[employer]. | | | | | | com, [...] [facility] | [address] | [place], [place] | | | UNIV PTH - INTFC | | [address] | | + + + + + [...] B: | | | | | | [employer]/CSPerformed | | | | | | by [facility],[address] | | | | | | [facility] | | | | | | [address] | | | | | | [phone].[employer]. | | | | | | Ismael ugillory MD, | | | | | | [...] [facility] | [address] | [place], [place] | | | UNIV PTH - [...] [facility] | [address] | [place] [address] | | | SERVICES, CORE | PARK [...] | | | | | determined by [employer] | | | | | | Laboratories. See | | | | | | Compliance Statement B: | | | | | | [employer]/CSPerformed | | | | | | by [facility],[address] | | | | | | [facility] | | | | | | [address] | | | | | | [phone].[employer]. | | | | | | ExcordaIsmael MD, | | | | | | [...] [facility] | [address] | [place], [place] | | | UNIV PTH - INTFC | | [address] | | + + + + + [...] [facility] | [address] | [place] [address] | | | SERVICES, CORE | PARK [...] [facility] | [address] | [place] [address] | | | SERVICES, CORE | PARK [...] | + + + + + | [facility] | [address] [facility] | [place] [address] | | | SERVICES, SPECIAL | CLARENCE [...] | + + + + + | [facility] | [address] | [place] [address] | | | SERVICES, CORE | PARK [...] | | | | | determined by [facility] | | | | | | Laboratories. See | | | | | | Compliance Statement B: | | | | | | [employer]/CSPerformed | | | | | | by [facility],[address] | | | | | | [address] [facility],[place] | | | | | | [address] | | | | | | [phone].[employer]. | | | | | | comIsmael [...] [facility] | [address] | [place], [place] | | | UNIV PTH - INTFC | | [address] | | + + + + + [...] | | LABORATORY | | | [place] | | | SERVICES, | | | [...] + + + | [facility] Relive | [address] | [place] [address] | | | SERVICES, CORE | CLARENCE [...]
--- OUTSIDE RECORDS SUMMARY | ~2019-06-25 | XMS | Encounter Summary ---
Demographics + + + | Address | [address] | | | [place] [address] | + + + | Home Phone [...] [place], [place] | | | | | [address] | | + + + + + | Ellie Vang | ECON | Unknown | | + + + + + Care Team Providers + +------+ + | Care Picker Tender Name | Role | Phone | + +------+ + | Kenyatta Cardenas MD | PCP | | + +------+ + Encounter Details +--------+ + + + + | Date | Type | Department | Care Team | Description | +--------+ + + + + | 03/18/ | Transcribe | NKECHI alonso [facility] | Transcribe | | | 2019 | Orders | [facility] [address] | Encounter, Provider, | | | | | [address] [place] Mailcode: | [address] | | | | | [address] [place] | [place] [address] | | | | | Health and Healing, | | | | | | Building [address] | | | | | | [place], [place] | | | | | | [address] | | | | | | [phone] | | | +--------+ + + + [...] [place] | | | | | | [address] | | | | | | [phone] | | | | | | | | +--------+ + + + + | 08/19/ | Surgery | Surgery | Chilo, | OPEN VENTRAL HERNIA | | 2019 | | | MD [address] | REPAIR WITH | | | | | [address] | BIOLOGICAL MESH | | | | | [place], [place] | | | | | | [address] | | | | | | [phone] | | | | | | | | +--------+ + + + + | 09/15/ | Office | Cardiology | Randell Franks, | | | 2019 | Visit | | [address] | | | | | | [place], [place] | | | | | | [address] | | | | | | [phone] | | | | | | | | +--------+ + + + + documented as of this encounter Results EGBrynn (04/07/2019 10:53 AM PDT) + + | Specimen | + + | | + + + + + | Narrative | Performed At | + + + | MRN: | [facility] | | [id number] Date: 04/07/2019Patient Name: Elzbieta Curtis #: | ENDOSCOPY | | [id number] of : 1975CSN: [id number] Type: | | | AmbulatoryRoom: Endo 5Procedure: Upper GI | | | endoscopyIndications: Generalized abdominal pain, Nausea | | | with vomitingProviders: TAL LUND MD | | | (Doctor), BERNARDO BERNARD RN (Nurse), | | | EREN SLATER (Campus Supervisor)Referring MD: SYLVIA Kilpatrick | | | KENNY [...] | | | The [employer] [id number] Endoscope #[id number] | | | was introduced through the [...]
--- OUTSIDE RECORDS SUMMARY | ~2019-06-25 | XMS | Encounter Summary ---
Demographics + + + | Address | [address] | | | [place] [address] | + + + | Home Phone [...] [place], [place] | | | | | [address] | | + + + + + | Ellie Vang | ECON | Unknown | | + + + + + Care Team Providers + +------+ + | Care Liner Helper Name | Role | Phone | [...] | HA Roldan | | | with [facility] | | hypertension | [address] | [address] | | | | | Right | [address] | [address] | | | | | heart | [place], [place] | [place], | | | | | failure | [address] | [place] | | | | | ([facility]) Type | Phone: | [address] | | | | | 2 diabetes | [phone] | | | | | | mellitus | Fax: | | | | | | without | [phone] | | | | | | complication [...] | | | | Mailcode: Center | [place], [place] | 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[facility] and | [address] | with insulin therapy | | | | [address] | | ([facility]) | | | | [place], [place] | | | | | | [address] | | | | | | [phone] | | | +--------+---------+ + + + [...] Follow-Up Patient referred by: Randell Franks MD [address] [place] [address] Documented time of visit: 10:33 to 10:55 (22 minutes qvgo-lg-zith with patient) Surgery: Gastric Bypass Date of [...] tomato), cream of wheat occ, cottage cheese, vietnamese yogurt-light and fit, protein bar from [employer]. Unable to keep protei n shakes down. Fluid choices: water-4-5 bottles per day Supplementation: Flinstones, iron, vitamin D, vitamin C, Citracal supplement x 2 in the mor eusebio and 2 at night, magnesium, potassium, E95-iockaooz today Assessment: Vomiting likely due to volume [...] multivitamin & mineral (with iron) supplement, 2/day -7603-9638 mg calcium citrate with vitamin D/day (take in divided doses, not within 2 hour s of multivitamin or iron supplement) -500 mcg/day sublingual B12 supplement (or monthly injections) Continued to reinforce importance of mindful eating. Continue to increase physical activity. Follow up in [address],[place] Pager# [phone] Phone: [phone] documented in this en counter Plan of [...] [place] | | | | | | [address] | | | | | | [phone] | | | | | | | | +--------+ + + + + | 08/19/ | Surgery | Surgery | Chilo, | OPEN VENTRAL HERNIA | | 2019 | | | MD [address] | REPAIR WITH | | | | | [address] | BIOLOGICAL MESH | | | | | [place] | | | | | | [address] | | | | | | [phone] | | | | | | | | +--------+ + + + + | 09/15/ | Office | Cardiology | Randell Franks, | | | 2019 | Visit | | [address] | | | | | | [place], [place] | | | | | | [address] | | | | | | [phone] | | | | | | | [...]
--- OUTSIDE RECORDS SUMMARY | ~2019-06-25 | XMS | Encounter Summary ---
Demographics + + + | Address | [address] | | | [place] [address] | + + + | Home Phone [...] [place], [place] | | | | | [address] | | + + + + + | Ellie Vang | ECON | Unknown | | + + + + + Care Team Providers + +------+ + | Care Straddle Bug Operator Name | Role | Phone | [...] | | | Procedures | | Rd [place], | | | | | [place] MNT | | [place] | | | | | INITIAL | | [address] | | | | | ASSESSMNT | | | | | | | X15MIN [place] | | | | | | | [...] Center at [facility] [address] | [address] | mellitus (HCC) | | | | [address] | [address] | (Primary Dx); Morbid | | | | Mailcode: Center | [place], [place] | obesity (HCC) | | | | for Health and | [address] | | | | | Healing, [place] [address] | | | | | | [place], [place] | | | | | | [address] | | | | | | [phone] | | | +--------+---------+ + + + [...] PDTNutrition appointment, -try keeping food logs online: -www.Popular Pays -PonoMusic -WineShop -Aim for 0691-5102 calories a day -Increase physical activity -try [...] appropriate portions. Denies any binge eating. Weight slubber frame changer the past year: > 100 lb [...] see an RD for 2 years in [place] but insurance quit paying for it. Up [...] 1000/d--a more appropriate long-term range would be 9661-3235/day. Inadequat e calcium intake; did not address [...] w/ meals & snacks 2. Aim for 6356-4959 kcal/d 3. Keep food logs (at least [...] needed. Olga Lidia Montanez RD, [place] Pager [phone] documented in this en counter Plan of [...] Rd | | | | | | [place], [place] | | | | | | [address] | | | | | | [phone] | | | | | | | | +--------+ + + + + | 08/19/ | Surgery | Surgery | Chilo, | OPEN VENTRAL HERNIA | | 2019 | | | MD Jorje [address] | REPAIR WITH | | | | | [address] | BIOLOGICAL MESH | | | | | [facility] [place] | | | | | | [address] | | | | | | [phone] | | | | | | | | +--------+ + + + + | 09/15/ | Office | Cardiology | Randell Franks, | | | 2019 | Visit | | [address] | | | | | | [place], [place] | | | | | | [address] | | | | | | [phone] | | | | | | | | +--------+ + + + + documented as of this encounter Procedures + +--------+ + + + | Procedure Name | Priori | Date/Time | Associated Diagnosis | Comments | | | ty | | | | + +--------+ + + + | [place] MNT INITIAL | Routin | 04/14/2013 | [...]
--- OUTSIDE RECORDS SUMMARY | ~2019-06-25 | XMS | Encounter Summary ---
Demographics + + + | Address | [address] | | | [place] [address] | + + + | Home Phone [...] Team Providers + +------+ + | Care Motion Picture Film Examiner Name | Role | Phone | [...] the | | | | | | [facility] [address] [facility] | | | | | | [facility] | | | | | | [place], [place] | | | | | | [address] | | | +--------+ + + + [...] Rd | | | | | | [place], [place] | | | | | | [address] | | | | | | [phone] | | | | | | | | +--------+ + + + + | 08/19/ | Surgery | Surgery | Chilo, | OPEN VENTRAL HERNIA | | 2019 | | | MD Jorje [address] | REPAIR WITH | | | | | [address] | BIOLOGICAL MESH | | | | | [facility] [place] | | | | | | [address] | | | | | | [phone] | | | | | | | | +--------+ + + + + | 09/15/ | Office | Cardiology | Rnadell Franks, | | | 2019 | Visit | | [address] | | | | | | Ave [place], [place] | | | | | | [address] | | | | | | [phone] | | | | | | | | +--------+ + + + + documented as of this encounter Visit Diagnoses Not on filedocumented in this encounter"
--- OUTSIDE RECORDS SUMMARY | ~2019-06-25 | XMS | Encounter Summary ---
Demographics + + + | Address | [address] | | | [place] [address] | + + + | Home Phone [...] [place], [place] | | | | | [address] | | + + + + + | Ellie Vang | ECON | Unknown | | + + + + + Care Team Providers + +------+ + | Care Pig Caster Name | Role | Phone | + +------+ + | Fadi Goodrich DO | PCP | | + +------+ + Encounter Details +--------+ + + + + | Date | Type | Department | Care Team | Description | +--------+ + + + + | 02/09/ | Abstract | Dig[facility]ive [facility] | Clinic, Surgery | | | 2016 | | [place] [address] [address] | | | | | | [address] | | | | | | Mailcode: [place] | | | | | | [facility] Health and | | | | | | [facility] 2 | | | | | | [place], [place] | | | | | | [address] | | | | | | [phone] | | | +--------+ + + + [...] [place] | | | | | | [address] | | | | | | [phone] | | | | | | | | +--------+ + + + + | 08/19/ | Surgery | Surgery | Chilo, | OPEN VENTRAL HERNIA | | 2019 | | | MD Jorje [address] | REPAIR WITH | | | | | [address] | BIOLOGICAL MESH | | | | | [place], [place] | | | | | | [address] | | | | | | [phone] | | | | | | | | +--------+ + + + + | 09/15/ | Office | Cardiology | Randell Franks, | | | 2019 | Visit | | MD [address] | | | | | | Ave [place], [place] | | | | | | [address] | | | | | | [phone] | | | | | | | | +--------+ + + + + documented as of this encounter Visit Diagnoses Not on filedocumented in this encounter"
--- OUTSIDE RECORDS SUMMARY | ~2019-06-25 | XMS | Encounter Summary ---
Demographics + + + | Address | [address] | | | [place] [address] | + + + | Home Phone [...] [place], [place] | | | | | [address] | | + + + + + | Ellie Vang | ECON | Unknown | | + + + + + Care Team Providers + +------+ + | Care Chucking And Sawing Machine Operator Name | Role | Phone [...] | | 2016 | | Preventive at [facility] | MD [address] | | | | | [address] | Ave [place], [place] | | | | | Mailcode: [facility] | [address] | | | | | [facility] | [phone] | | | | | and [facility], | | | | | | [address] | | | | | | [facility] [place] | | | | | | [address] | | | | | | [phone] | | | +--------+ + + + [...] Rd | | | | | | [facility] [place] | | | | | | [address] | | | | | | [phone] | | | | | | | | +--------+ + + + + | 08/19/ | Surgery | Surgery | Chilo, | OPEN VENTRAL HERNIA | | 2019 | | | MD [address] | REPAIR WITH | | | | | [address] | BIOLOGICAL MESH | | | | | [place], [place] | | | | | | [address] | | | | | | [phone] | | | | | | | | +--------+ + + + + | 09/15/ | Office | Cardiology | Randell Franks, | | | 2020 | Visit | | [address] | | | | | | [place], [place] | | | | | | [address] | | | | | | [phone] | | | | | | | | +--------+ + + + + documented as of this encounter Visit Diagnoses Not on filedocumented in this encounter"
--- OUTSIDE RECORDS SUMMARY | ~2019-06-25 | XMS | Encounter Summary ---
Demographics + + + | Address | [address] | | | [place] [address] | + + + | Home Phone [...] [place], [place] | | | | | [address] | | + + + + + [...] | | | | | | [place] [address] | | | | | | [phone] | | | +--------+ + + + [...] Rd | | | | | | [place], [place] | | | | | | [address] | | | | | | [phone] | | | | | | | | +--------+ + + + + | 08/19/ | Surgery | Surgery | Chilo, | OPEN VENTRAL HERNIA | | 2019 | | | MD Jorje [address] | REPAIR WITH | | | | | [address] | BIOLOGICAL MESH | | | | | [place] | | | | | | [address] | | | | | | [phone] | | | | | | | | +--------+ + + + + | 09/15/ | Office | Cardiology | Randell Franks, | | | 2019 | Visit | | [address] | | | | | | [place] | | | | | | [address] | | | | | | [phone] | | | | | | | | +--------+ + + + + documented as of this encounter Visit Diagnoses Not on filedocumented in this encounter"
--- OUTSIDE RECORDS SUMMARY | ~2019-06-25 | XMS | Encounter Summary ---
Demographics + + + | Address | [address] | | | [place] [address] | + + + | Home Phone | | + + + | Preferred Language | Unknown | + + + | Marital Status | | + + + | Gnosticism Affiliation | Unknown | + + + | Race | Unknown | + + + | Ethnic Group | Unknown | + + + Author + + + | Author | [facility] | | | and [place]ana | + + + | Organization | [facility] | [...] + +------+ + | Care Director Of Therapy Services Name | Role | Phone | + +------+ + PCP | Unavailable | + +------+ + Encounter Details +--------+ + + + + | Date | Type | Department | Care Team | Description | +--------+ + + + + | 04/14/ | Orders Only | [facility] | Conversion | | | 2015 | | NEPHROLOGY JESUS | Transaction, | | | | | [address] | Provider Unknown | | | | | [address] [place] [address] | | | | | | [address] | (Fax) | | | | | [phone] | | | +--------+ + + + [...] - 1.030 | EXTERNAL | | | [place] | | | LAB | | + [...] + + + | RED CELL | 5.38 (A) | 3.8 - 5.1 10 | EXTERNAL | | | COUNT | | | LAB | | + + + + + + | Hgb | 13.7 [...]
--- OUTSIDE RECORDS SUMMARY | ~2019-06-25 | XMS | Encounter Summary ---
Demographics + + + | Address | [address] | | | [place] [address] | + + + | Home Phone [...] [place], [place] | | | | | [address] | | + + + + + | Ellie Vang | ECON | Unknown | | + + + + + Care Team Providers + +------+ + | Care Broadcast Systems Engineer Name | Role | Phone [...] Order | [address] | [place], [place] | | | | | [address] | [address] | | | | | Rd Mailcode: UHN83 | [phone] | | | | | Francesco Peres | | | | | | [address] [place], [place] | | | | | | [address] | | | | | | [phone] | | | +--------+ + + + [...] Rd | | | | | | [place], [place] | | | | | | [address] | | | | | | [phone] | | | | | | | | +--------+ + + + + | 08/19/ | Surgery | Surgery | Chilo | OPEN VENTRAL HERNIA | | 2019 | | | MD [address] | REPAIR WITH | | | | | [address] | BIOLOGICAL MESH | | | | | [place], [place] | | | | | | [address] | | | | | | [phone] | | | | | | | | +--------+ + + + + | 09/15/ | Office | Cardiology | Randell Franks, | | | 2019 | Visit | | MD [address] | | | | | | [place], [place] | | | | | | [address] | | | | | | [phone] | | | | | | | | +--------+ + + + + documented as of this encounter Results EGD (06/23/2018 3:58 PM PST) + + | Specimen | + + | | + + + +--------- -----+ | Narrative | Roseanna parikh At | + +--------- -----+ | MRN: | NKECHI | | [id number] Date: 06/23/2018Patient Name: Elzbieta Curtis #: | ENDOSCOP Y | | [id number] of : 1975CSN: [id number] Type: | | | AmbulatoryRoom: SORProcedure: Upper GI | | | endoscopyIndications: Nausea with vomiting, Status post | | | Fnyb-uu-JBdwaygpke: KALEB MILES MD (Doctor)JOSE | | | NASIMA, Vice President Of Software Engineering | | | (Vice President Of Software Engineering)Referring MD: DANIELLE GARCÍAPRemateusz | | | Provider: [...] | | | The Olympus [id number] Gastroscope #[id number] was | | | introduced through the [...] endoscope without resistance. The | | | fevrz-mw-aabyidc limb was characterized by healthy appearing | [...] Initiated On: | | | 06/23/2018 3:58 [facility] Letter to: RADHA MICHAEL DO [...]
--- OUTSIDE RECORDS SUMMARY | ~2019-06-25 | XMS | Encounter Summary ---
Demographics + + + | Address | [address] | | | [place] [address] | + + + | Home Phone [...] [place], [place] | | | | | [address] | | + + + + + [...] + | 03/03/ | Documentati | [facility] | Lab, Gi Procedure | Medical Records | | 2019 | on | [address] | | Review | | | | [address] [place] Mailcode: | | | | | | OC[facility] | | | | | | Health and Healing, | | | | | | [address] | | | | | | [place], [place] | | | | | | [address] | | | | | | [phone] | | | +--------+ + + + [...] Rd | | | | | | [place], [place] | | | | | | [address] | | | | | | [phone] | | | | | | | | +--------+ + + + + | 08/19/ | Surgery | Surgery | Chilo, | OPEN VENTRAL HERNIA | | 2019 | | | MD Jorje [address] | REPAIR WITH | | | | | [address] | BIOLOGICAL MESH | | | | | [place], [place] | | | | | | [address] | | | | | | [phone] | | | | | | | | +--------+ + + + + | 09/15/ | Office | Cardiology | Randell Franks, | | | 2019 | Visit | | [address] | | | | | | [place], [place] | | | | | | [address] | | | | | | [phone] | | | | | | | | +--------+ + + + + documented as of this encounter Visit Diagnoses Not on filedocumented in this encounter"
--- OUTSIDE RECORDS SUMMARY | ~2019-06-25 | XMS | Encounter Summary ---
Demographics + + + | Address | [address] | | | [place] [address] | + + + | Home Phone [...] [place], [place] | | | | | [address] | | + + + + + | Ellie Vang | ECON | Unknown | | + + + + + Care Team Providers + +------+ + | Care Biodiesel Process Control Technician Name | Role | Phone [...] | | [address] Mailcode: CH4S | [facility] | | | | | [facility] | [place], [place] | | | | | and Healing, | [address] | | | | | [place] [address] [facility] | [phone] | | | | | Floor [place], [place] | | | | | | [address] | | | | | | [phone] | | | +--------+ + + + [...] Rd | | | | | | [place], [place] | | | | | | [address] | | | | | | [phone] | | | | | | | | +--------+ + + + + | 08/19/ | Surgery | Surgery | Chilo, | OPEN VENTRAL HERNIA | | 2019 | | | MD Jorje [address] | REPAIR WITH | | | | | [address] | BIOLOGICAL MESH | | | | | [place], [place] | | | | | | [address] | | | | | | [phone] | | | | | | | | +--------+ + + + + | 09/15/ | Office | Cardiology | Randell Franks, | | | 2019 | Visit | | MD [address] | | | | | | [address] [place], [place] | | | | | | [address] | | | | | | [phone] | | | | | | | | +--------+ + + + + documented as of this encounter Visit Diagnoses Not on filedocumented in this encounter"
--- OUTSIDE RECORDS SUMMARY | ~2019-06-25 | XMS | Encounter Summary ---
Demographics + + + | Address | [address] | | | [place] [address] | + + + | Home Phone [...] [place], [place] | | | | | [address] | | + + + + + | Ellie Vang | ECON | Unknown | | + + + + + Care Team Providers + +------+ + | Care Tick Sewer Name | Role | Phone | [...] | | 2017 | | Preventive at [facility] | MD [address] | Request ([address] | | | | [address] | Ave [place], [place] | mg) | | | | Mailcode: [facility] | [address] | | | | | [facility] | [phone] | | | | | and [place], | | | | | | [address] | | | | | | [place], [place] | | | | | | [address] | | | | | | [phone] | | | +--------+ + + + [...] Rd | | | | | | [place] | | | | | | [address] | | | | | | [phone] | | | | | | | | +--------+ + + + + | 08/19/ | Surgery | Surgery | Chilo, | OPEN VENTRAL HERNIA | | 2019 | | | MD [address]ond [address] | REPAIR WITH | | | | | [address] | BIOLOGICAL MESH | | | | | [place], [place] | | | | | | [address] | | | | | | [phone] | | | | | | | | +--------+ + + + + | 09/15/ | Office | Cardiology | Randell Franks, | | | 2019 | Visit | | MD [address] | | | | | | [place], [place] | | | | | | [address] | | | | | | [phone] | | | | | | | | +--------+ + + + + documented as of this encounter Visit Diagnoses Not on filedocumented in this encounter"
--- OUTSIDE RECORDS SUMMARY | ~2019-06-25 | XMS | Encounter Summary ---
Demographics + + + | Address | [address] | | | [place] [address] | + + + | Home Phone [...] [place], [place] | | | | | [address] | | + + + + + | Ellie Vang | ECON | Unknown | | + + + + + Care Team Providers + +------+ + | Care Or Manager Name | Role | Phone | [...] | | | | | (HCC) | [place], [place] | Mailcode: | | | | | Procedures | [address] | [address] [facility] | | | | | CT ABDOMEN & | Phone: | Hospital | | | | | P[address] | | [place], [place] | | | | | IV CONTRAST | Fax: | [address] | | | | | [place] [address] | [phone] | Phone: | | | | | ABDOMEN&PELV | | [phone] | | | | | IS | | Fax: | | | | | W/CONTRAST | | [phone] | | | | | See chart [...] | | | | | | [facility] | | | | | | | Health and | | | | | | | Healing, | | | | | | | [address] | | | | | | | [place], [place] | | | | | | | [address] | | | | | | | Phone: | | | | | | | [phone] | | | | | | | Fax: | | | | | | | [phone] | +--------+--------+ + + + + Encounter [...] | | [address] | Ave [place], [place] | obesity (HCC) | | | | Mailcode: [place] | [address] | | | | | for Health and | [phone] | | | | | [facility] 2 | | | | | | [place], [place] | | | | | | [address] | | | | | | [phone] | | | +--------+---------+ + + + [...] in th e air, Use a hair specialist.... And get it really dry. Then use corn starch ..... Then use medicated powder... Please go to the 3rd floor for the study... [place] [address] documented in this encounter Progress Notes Shereen Pinto ACNP - 10/02/2014 11:14 AM PDTFormatting of this note might be different fro m the original. BARIATRIC INITIAL VISIT Provider: Shereen Pinto DNP, ACNP, RUG HOOKER HAND Referring Provider: Dr. Goodrich Reason for Requested [...] with the surgeon. Shereen Pinto DNP, ACNP, RUG HOOKER HAND Nurse Practitioner for Bariatric Surgery [facility] | [address] | [place], [place] | [address] | Potential Contraindications to Bariatric Surgery Age [...] other providers does not guarantee that the [facility] Bariatric Surger y program [...] Rd | | | | | | [place], [place] | | | | | | [address] | | | | | | [phone] | | | | | | | [...] [place] | | | | | | [address] | | | | | | [phone] | | | | | | | | +--------+ + + + + | 09/15/ | Office | Cardiology | Randell Franks, | | | 2020 | Visit | | [address] | | | | | | [place] [facility] [place] | | | | | | [address] | | | | | | [phone] | | | | | | | [...]
--- OUTSIDE RECORDS SUMMARY | ~2019-06-25 | XMS | Encounter Summary ---
Demographics + + + | Address | [address] | | | [place] [address] | + + + | Home Phone | | + + + | Preferred Language | Unknown | + + + | Marital Status | | + + + | Hindu Affiliation | Unknown | + + + | Race | Unknown | + + + | Ethnic Group | Unknown | + + + Author + + + | Author | [facility] | | | and Jeffana | + + + | Organization | [facility] | | | and Jeffana [...] Providers + +------+ + | Care Assistant Broker Name | Role | Phone | + +------+ + PCP | Unavailable | + +------+ + Encounter Details +--------+ + + + + | Date | Type | Department | Care Team | Description | +--------+ + + + + | 09/27/ | Orders Only | [facility] | Dharmesh Escobar, | | | 2019 | | NEPHROLOGY [place] | BERRY PICKER MACHINE OPERATOR [address] | | | | | [address] | [address] | | | | | [address] [place], [place] | [place] | | | | | [address] | [address] | | | | | [phone] | [phone] | | | | | | | [...] | | | LAB | | | [facility] | | | | | + +---------+ [...]
--- OUTSIDE RECORDS SUMMARY | ~2019-06-25 | XMS | Encounter Summary ---
Demographics + + + | Address | [address] | | | [place] [address] | + + + | Home Phone [...] [place], [place] | | | | | [address] | | + + + + + | Ellie Vang | ECON | Unknown | | + + + + + Care Team Providers + +------+ + | Care Line Prep Cook Name | Role | Phone | [...] | | [address] | [place], [place] | | | | | Mailcode: [place] | [address] | | | | | for Health and | [phone] | | | | | [facility] 2 | | | | | | [place], [place] | | | | | | [address] | | | | | | [phone] | | | +--------+ + + + [...] [place] | | | | | | [address] | | | | | | [phone] | | | | | | | | +--------+ + + + + | 08/19/ | Surgery | Surgery | Chilo, | OPEN VENTRAL HERNIA | | 2019 | | | MD [address] | REPAIR WITH | | | | | [address] | BIOLOGICAL MESH | | | | | [place] | | | | | | [address] | | | | | | [phone] | | | | | | | | +--------+ + + + + | 09/15/ | Office | Cardiology | Randell Franks, | | | 2019 | Visit | | MD [address] | | | | | | [place], [place] | | | | | | [address] | | | | | | [phone] | | | | | | | | +--------+ + + + + documented as of this encounter Visit Diagnoses Not on filedocumented in this encounter"
--- OUTSIDE RECORDS SUMMARY | ~2019-06-25 | XMS | Encounter Summary ---
Demographics + + + | Address | [address] | | | [place] [address] | + + + | Home Phone [...] [place], [place] | | | | | [address] | | + + + + + | Ellie Vang | ECON | Unknown | | + + + + + Care Team Providers + +------+ + | Care Plaque Maker Name | Role | Phone | [...] | | 2014 | | Center at [facility] [address] | [address] | (11/03 and 11/06 phone | | | | [address] | Lesly Gutiérrez [place], | calls) | | | | Mailcode: [place] | [place] [address] | | | | | for Health and | | | | | | [facility] 2 | | | | | | [place], [place] | | | | | | [address] | | | | | | [phone] | | | +--------+ + + + [...] Rd | | | | | | [place] | | | | | | [address] | | | | | | [phone] | | | | | | | | +--------+ + + + + | 08/19/ | Surgery | Surgery | Chilo, | OPEN VENTRAL HERNIA | | 2020 | | | MD [address] | REPAIR WITH | | | | | [address] | BIOLOGICAL MESH | | | | | [place] | | | | | | [address] | | | | | | [phone] | | | | | | | | +--------+ + + + + | 09/15/ | Office | Cardiology | Randell Franks, | | | 2019 | Visit | | [address] | | | | | | [place], [place] | | | | | | [address] | | | | | | [phone] | | | | | | | | +--------+ + + + + documented as of this encounter Visit Diagnoses Not on filedocumented in this encounter"
--- OUTSIDE RECORDS SUMMARY | ~2019-06-25 | XMS | Encounter Summary ---
Demographics + + + | Address | [address] | | | [place] [address] | + + + | Home Phone [...] + | Katalina Padilla | ECON | [address] | | | | | [place], [place] | | | | | [address] | | + + + + + | Ellie Vang | ECON | Unknown | | + + + + + Care Team Providers + +------+ + | Care Farm Appraiser Name | Role | Phone | [...] | | Frandy-[place]-Y | AGACNP [address] | [address] | | | | | gastric | [address] | [address] | | | | | bypass | [place], | Mailcode: | | | | | Nausea and | [place] | [address] [facility] | | | | | vomiting, | [address] | Hospital | | | | | intractabili | Phone: | [place], [place] | | | | | ty of | | [address] | | | | | vomiting not | Fax: | Phone: | | | | | specified, | [phone] | [phone] | | | | | unspecified | | Fax: | | | | | vomiting | | [phone] | | | | | type | [...] | | | | | bypass | [place], | Mailcode: | | | | | Nausea and | [place] | [address] [facility] | | | | | vomiting, | [address] | Hospital | | | | | intractabili | Phone: | [place], [place] | | | | | ty of | | [address] | | | | | vomiting not | Fax: | Phone: | | | | | specified, | [phone] | [phone] | | | | | unspecified | | Fax: | | | | | vomiting | | [phone] | | | | | type | [...] | 2019 | Encounter | Services at [facility] | [address] | | | | | [address] | [place], [place] | | | | | Lesly Gutiérrez Mailcode: | [address] | | | | | [address] [facility] | [phone] | | | | | [place], [place] | | | | | | [address] | | | | | | [phone] | | | +--------+ + + + [...] | | 0 | | | | [id number]&OLX-[id number]-[id number]-GEN | mouth two times | | | [...] Rd | | | | | | [place] | | | | | | [address] | | | | | | [phone] | | | | | | | | +--------+ + + + + | 08/19/ | Surgery | Surgery | Chilo | OPEN VENTRAL HERNIA | | 2019 | | | MD [address] | REPAIR WITH | | | | | [address] | BIOLOGICAL MESH | | | | | [place], [place] | | | | | | [address] | | | | | | [phone] | | | | | | | | +--------+ + + + + | 09/15/ | Office | Cardiology | Randell Franks, | | | 2020 | Visit | | [address] | | | | | | [place], [place] | | | | | | [address] | | | | | | [phone] | | | | | | | [...]
--- OUTSIDE RECORDS SUMMARY | ~2019-06-25 | XMS | Encounter Summary ---
Demographics + + + | Address | [address] | | | [place] [address] | + + + | Home Phone [...] [place], [place] | | | | | [address] | | + + + + + | Ellie Vang | ECON | Unknown | | + + + + + Care Team Providers + +------+ + | Care Industrial Hygenist Name | Role | Phone | + [...] | | | | | | [place] [address] | | | | | | [phone] | | | +--------+ + + + [...] Rd | | | | | | [place], [place] | | | | | | [address] | | | | | | [phone] | | | | | | | | +--------+ + + + + | 08/19/ | Surgery | Surgery | Chilo, | OPEN VENTRAL HERNIA | | 2019 | | | MD Jorje [address] | REPAIR WITH | | | | | [address] | BIOLOGICAL MESH | | | | | [place], [place] | | | | | | [address] | | | | | | [phone] | | | | | | | | +--------+ + + + + | 09/15/ | Office | Cardiology | Randell Franks, | | | 2019 | Visit | | MD [address] | | | | | | [place], [place] | | | | | | [address] | | | | | | [phone] | | | | | | | | +--------+ + + + + documented as of this encounter Visit Diagnoses Not on filedocumented in this encounter"
--- OUTSIDE RECORDS SUMMARY | ~2019-06-25 | XMS | Encounter Summary ---
Demographics + + + | Address | [address] | | | [place] [address] | + + + | Home Phone [...] [place], [place] | | | | | [address] | | + + + + + | Ellie Vang | ECON | Unknown | | + + + + + Care Team Providers + +------+ + | Care Overhead Door Technician Name | Role | Phone | [...] | 2019 | | Preventive at [facility] | [address] | | | | | [address] | [place], [place] | | | | | Mailcode: [facility] | [address] | | | | | [facility] | [phone] | | | | | and Healing, | | | | | | [address] | | | | | | [place], [place] | | | | | | [address] | | | | | | [phone] | | | +--------+ + + + [...] Rd | | | | | | [facility] [place] | | | | | | [address] | | | | | | [phone] | | | | | | | | +--------+ + + + + | 08/19/ | Surgery | Surgery | Chilo, | OPEN VENTRAL HERNIA | | 2019 | | | MD [address] | REPAIR WITH | | | | | [address] | BIOLOGICAL MESH | | | | | [place], [place] | | | | | | [address] | | | | | | [phone] | | | | | | | | +--------+ + + + + | 09/15/ | Office | Cardiology | Randell Franks, | | | 2020 | Visit | | [address] | | | | | | [place], [place] | | | | | | [address] | | | | | | [phone] | | | | | | | | +--------+ + + + + documented as of this encounter Visit Diagnoses Not on filedocumented in this encounter"
--- OUTSIDE RECORDS SUMMARY | ~2019-06-25 | XMS | Encounter Summary ---
Demographics + + + | Address | [address] | | | [place] [address] | + + + | Home Phone [...] [place], [place] | | | | | [address] | | + + + + + | Ellie Vang | ECON | Unknown | | + + + + + Care Team Providers + +------+ + | Care Electronics Teacher Name | Role | Phone | [...] Rd | | | | | | [place], [place] | | | | | | [address] | | | | | | [phone] | | | | | | | | +--------+ + + + + | 08/19/ | Surgery | Surgery | Chilo, | OPEN VENTRAL HERNIA | | 2019 | | | MD Jorje [address] | REPAIR WITH | | | | | [address] | BIOLOGICAL MESH | | | | | [place], [place] | | | | | | [address] | | | | | | [phone] | | | | | | | | +--------+ + + + + | 09/15/ | Office | Cardiology | Randell Franks, | | | 2019 | Visit | | [address] | | | | | | [place], [place] | | | | | | [address] | | | | | | [phone] | | | | | | | | +--------+ + + + + documented as of this encounter Visit Diagnoses Not on filedocumented in this encounter"
--- OUTSIDE RECORDS SUMMARY | ~2019-06-25 | XMS | Encounter Summary ---
Demographics + + + | Address | [address] | | | [place] [address] | + + + | Home Phone [...] [place], [place] | | | | | [address] | | + + + + + | Ellie Vang | ECON | Unknown | | + + + + + Care Team Providers + +------+ + | Care Institution Director Name | Role | Phone | [...] + + | 03/01/ | Hospital | [facility] [address] | Ion Castanon, | | | 2018 - | Encounter | [address] | [address] | | | | | [place], [place] | [place], [place] | | | 03/03/ | | [address] | [address] | | | 2017 | | [phone] | [phone] | | | | | | | [...] 9:49 AM PDT [facility] RED SURGERY INPATIENT DISCHARGE SUMMARY Author: KAIN [...] to a bariatric full liquid diets. Our [facility] dietitian was consulted and they discussed [...] at minimum. 5. Follow with PCP for Quantitative Software Engineer within 1 - 2 weeks of discharge [...] mg by mouth two times daily. CALCIUM [id number]-GENIS ORAL Take 2 tablets by mouth two [...] or Kefir, [place] Yogurt, and Chioban i Gabonese Yogurt are common brands with beneficial probiotics. [...] over the counter at most [facility] [employer] stores. Nausea/Vomiting/Difficulty Swallowing Nausea/Vomiting/Difficulty swallowing: Could be [...] hours per your instructions. Some medications, like [place], have Tylenol in it. Make sure you [...] hours by calling the surgery office at [phone]. - After hours, weekends and holidays, you may call the hospital continuous washer operator at [phone] an d have the donkey doctor Red Surgery Team paged. OTHER DISCHARGE ORDERS [...] at minimum. 5. Follow with PCP for Quantitative Software Engineer within 1 - 2 weeks of discharge [...] Dept Phone Center 03/10/2018 1:30 PM [facility] 6th Floor [phone] FO OD AND NUT 03/10/2018 3:05 PM [facility] 6th Floor [phone] [facility] 04/01/2018 10:30 AM [facility] 6th Floor [phone] FO OD AND NUT 04/01/2018 11:00 AM Ion Castanon [facility] 6th Floor [phone] [facility] 05/27/2018 2:30 PM [facility] 6th Floor [phone] FO OD AND NUT 05/27/2018 3:05 PM [facility] 6th Floor [phone] [facility] 05/27/2018 4:30 PM [facility] 15th Floor [phone] [facility] 06/04/2018 10:35 AM Randell Franks [facility] [phone] Cardiology Discharging Physician: KAIN Agee Attending Physician: Ion Castanon MD [facility] Surgery Pager# [phone] 9:50 AM 03/03/2018 documented in this enco [...] | | 0 | | | | [id number]-GEN | mouth two times | | | [...] date of discharge 03/03/18 PARTHA Calixto MS3 [facility] [employer] Demarcus Menon [...] for care ride home (pt lives in [place]) Demarcus Alas M.D. General Surgery Resident PGY-1 Pager: [phone] Ion Ferrari MD - 10:00 AM [address] [...] [address] | | | | | | [place], [place] | | | | | | [address] | | | | | | [phone] | | | | | | | | +--------+ + + + + | 08/19/ | Surgery | Surgery | Chilo | OPEN VENTRAL HERNIA | | 2019 | | | MD [address] | REPAIR WITH | | | | | [address] | BIOLOGICAL MESH | | | | | [place], [place] | | | | | | [address] | | | | | | [phone] | | | | | | | | +--------+ + + + + | 09/15/ | Office | Cardiology | Randell Franks, | | | 2019 | Visit | | [address] | | | | | | [place], [place] | | | | | | [address] | | | | | | [phone] | | | | | | | [...] over, adult ([facility]) | results section. | + +--------+ + + + | CAPILLARY BLOOD | Routin | 03/03/2018 | Morbid obesity | Results for this | | GLUCOSE (NO CHG), | e | 7:54 AM | with BMI of 70 and | procedure are in the | | POC | | PDT | over, adult ([facility]) | results section. | + +--------+ + + + | CAPILLARY BLOOD | Routin | 03/03/2018 | Morbid obesity | Results for this | | GLUCOSE (NO CHG), | e | 6:28 AM | with BMI of 70 and | procedure are in the | | POC | | PDT | over, adult ([facility]) | results section. | + +--------+ + + + | CAPILLARY BLOOD | Routin | 03/02/2018 | Morbid obesity | Results for this | | GLUCOSE (NO CHG), | e | 9:17 PM | with BMI of 70 and | procedure are in the | | POC | | PDT | over, adult ([facility]) | results section. | + +--------+ + + + | CAPILLARY BLOOD | Routin | 03/02/2018 | Morbid obesity | Results for this | | GLUCOSE (NO CHG), | e | 6:50 PM | with BMI of 70 and | procedure are in the | | POC | | PDT | over, adult ([facility]) | results section. | + +--------+ + + + | CAPILLARY BLOOD | Routin | 03/02/2018 | Morbid obesity | Results for this | | GLUCOSE (NO CHG), | e | 3:46 PM | with BMI of 70 and | procedure are in the | | POC | | PDT | over, adult ([facility]) | results section. | + +--------+ + + + | CAPILLARY BLOOD | Routin | 03/02/2018 | Morbid obesity | Results for this | | GLUCOSE (NO CHG), | e | 2:36 PM | with BMI of 70 and | procedure are in the | | POC | | PDT | over, adult ([facility]) | results section. | + +--------+ + + + | CAPILLARY BLOOD | Routin | 03/02/2018 | Morbid obesity | Results for this | | GLUCOSE (NO CHG), | e | 1:33 PM | with BMI of 70 and | procedure are in the | | POC | | PDT | over, adult ([facility]) | results section. | + +--------+ + + + | CAPILLARY BLOOD | Routin | 03/02/2018 | Morbid obesity | Results for this | | GLUCOSE (NO CHG), | e | 11:36 AM | with BMI of 70 and | procedure are in the | | POC | | PDT | over, adult ([facility]) | results section. | + +--------+ + + + | CAPILLARY BLOOD | Routin | 03/02/2018 | Morbid obesity | Results for this | | GLUCOSE (NO CHG), | e | 10:32 AM | with BMI of 70 and | procedure are in the | | POC | | PDT | over, adult ([facility]) | results section. | + +--------+ + + + | CAPILLARY BLOOD | Routin | 03/02/2018 | Morbid obesity | Results for this | | GLUCOSE (NO CHG), | e | 9:23 AM | with BMI of 70 and | procedure are in the | | POC | | PDT | over, adult ([facility]) | results section. | + +--------+ + + + | CAPILLARY BLOOD | Routin | 03/02/2018 | Morbid obesity | Results for this | | GLUCOSE (NO CHG), | e | 8:36 AM | with BMI of 70 and | procedure are in the | | POC | | PDT | over, adult ([facility]) | results section. | + +--------+ + + + | CAPILLARY BLOOD | Routin | 03/02/2018 | Morbid obesity | Results for this | | GLUCOSE (NO CHG), | e | 7:35 AM | with BMI of 70 and | procedure are in the | | POC | | PDT | over, adult ([facility]) | results section. | + +--------+ + + + | CAPILLARY BLOOD | Routin | 03/02/2018 | Morbid obesity | Results for this | | GLUCOSE (NO CHG), | e | 6:33 AM | with BMI of 70 and | procedure are in the | | POC | | PDT | over, adult ([facility]) | results section. | + +--------+ + + + | CAPILLARY BLOOD | Routin | 03/02/2018 | Morbid obesity | Results for this | | GLUCOSE (NO CHG), | e | 5:28 AM | with BMI of 70 and | procedure are in the | | POC | | PDT | over, adult ([facility]) | results section. | + +--------+ + + + | CAPILLARY BLOOD | Routin | 03/02/2018 | Morbid obesity | Results for this | | GLUCOSE (NO CHG), | e | 4:36 AM | with BMI of 70 and | procedure are in the | | POC | | PDT | over, adult ([facility]) | results section. | + +--------+ + + + | CAPILLARY BLOOD | Routin | 03/02/2018 | Morbid obesity | Results for this | | GLUCOSE (NO CHG), | e | 2:46 AM | with BMI of 70 and | procedure are in the | | POC | | PDT | over, adult ([facility]) | results section. | + +--------+ + + + | CAPILLARY BLOOD | Routin | 03/02/2018 | Morbid obesity | Results for this | | GLUCOSE (NO CHG), | e | 12:32 AM | with BMI of 70 and | procedure are in the | | POC | | PDT | over, adult ([facility]) | results section. | + +--------+ + + + | CAPILLARY BLOOD | Routin | 03/01/2018 | Morbid obesity | Results for this | | GLUCOSE (NO CHG), | e | 10:31 PM | with BMI of 70 and | procedure are in the | | POC | | PDT | over, adult ([facility]) | results section. | + +--------+ + + + | CAPILLARY BLOOD | Routin | 03/01/2018 | Morbid obesity | Results for this | | GLUCOSE (NO CHG), | e | 8:21 PM | with BMI of 70 and | procedure are in the | | POC | | PDT | over, adult ([facility]) | results section. | + +--------+ [...] over, adult ([facility]) | results section. | + +--------+ + + + | CAPILLARY BLOOD | Routin | 03/01/2018 | Morbid obesity | Results for this | | GLUCOSE (NO CHG), | e | 3:31 PM | with BMI of 70 and | procedure are in the | | POC | | PDT | over, adult ([facility]) | results section. | + +--------+ + + + | CAPILLARY BLOOD | Routin | 03/01/2018 | Morbid obesity | Results for this | | GLUCOSE (NO CHG), | e | 3:29 PM | with BMI of 70 and | procedure are in the | | POC | | PDT | over, adult ([facility]) | results section. | + +--------+ + + + | CAPILLARY BLOOD | Routin | 03/01/2018 | Morbid obesity | Results for this | | GLUCOSE (NO CHG), | e | 2:30 PM | with BMI of 70 and | procedure are in the | | POC | | PDT | over, adult ([facility]) | results section. | + +--------+ + + + | CAPILLARY BLOOD | Routin | 03/01/2018 | Morbid obesity | Results for this | | GLUCOSE (NO CHG), | e | 1:35 PM | with BMI of 70 and | procedure are in the | | POC | | PDT | over, adult ([facility]) | results section. | + +--------+ [...] over, adult ([facility]) | results section. | + +--------+ + + + | LAPAROSCOPIC | Electi | 03/01/2018 | Morbid obesity | | | NISH-EN-Y GASTRIC | ve | 8:31 AM | ([facility]) | | | BYPASS | Surgic [...] MARQUAM | [address] | [place], [place] | | | JUSTINE DAWN OF JAKY | [facility] | [address] | | | TESTS | | | [...] AMES | [address] | [place], [place] | | | [facility] | [address] | [address] | | | TESTS | | | [...] MARQUAM | [address] | [place], [place] | | | [facility] | [address] | [address] | | | TESTS | | | [...] MARQUAM | [address] | [place], [place] | | | JUSTINE DAWN OF [place]AKY | [facility] | [address] | | | TESTS | | | [...] AMES | [address] | [place], [place] | | | [facility] | [address] | [address] | | | TESTS | | | [...] MARQUAM | [address] | [place], [place] | | | [facility] CARE | [address] | [address] | | | TESTS | | | [...] (H) | 70 - 99 mg/dL | FLORIN - | | | GLUCOSE, | | [...] MARQUAM | [address] | [place], [place] | | | JUSTINE [facility]WN OF CARE | [facility] | [address] | | | TESTS | | | [...] AMES | [address] | [place], [place] | | | [facility] | [address] | [address] | | | TESTS | | | [...] MARQUAM | [address] | [place], [place] | | | [facility] | [address] | [address] | | | TESTS | | | [...] (H) | 70 - 99 mg/dL | FLORIN - | | | GLUCOSE, | | [...] - MARQUAM | [address] | [place], [place] | | | JUSTINE DAWN OF JAKY | [facility] | [address] | | | TESTS | | | [...] AMES | [address] | [place], [place] | | | [facility] | [address] | [address] | | | TESTS | | | [...] MARQUAM | [address] | [place], [place] | | | [facility] | [address] | [address] | | | TESTS | | | [...] MARQUAM | [address] | [place], [place] | | | [facility] | [address] | [address] | | | TESTS | | | [...] + + + | NKECHI AMES | [address] | [place], [place] | | | [facility] | [address] | [address] | | | TESTS | | | [...] MARQUAM | [address] | [place], [place] | | | [facility] | [address] | [address] | | | TESTS | | | [...] MARQUAM | [address] | [place], [place] | | | [facility] | [address] | [address] | | | TESTS | | | [...] AMES | [address] | [place] | | | [facility] CARE | [address] | [address] | | | TESTS | | | [...] MARQUAM | [address] | [place], [place] | | | [facility] | [address] | [address] | | | TESTS | | | [...] - MARQUAM | [address] | [place], [place] | | | [facility] | [address] | [address] | | | TESTS | | | [...] AMES | [address] | [place] | | | [facility]ARE | [address] | [address] | | | TESTS | | | [...] MARQUAM | [address] | [place], [place] | | | [facility] | [address] | [address] | | | TESTS | | | [...] MARQUAM | [address] | [place], [place] | | | [facility] | [address] | [address] | | | TESTS | | | [...] + + + | NKECHI AMES | [address] | [place], [place] | | | [facility] | [address] | [address] | | | TESTS | | | [...] MARQUAM | [address] | [place], [place] | | | [facility] | [address] | [address] | | | TESTS | | | [...] MARQUAM | [address] | [place], [place] | | | [facility] | [address] | [address] | | | TESTS | | | [...] + | NKECHI AMES | [address] | [place], [place] | | | [facility] | [address] | [address] | | | TESTS | | | | + + + + + EGD (ESOPHAGOGASTRODUODENOSCOPY) (03/01/2018 11:21 AM PDT) + + + | Narrative | Performed At | + + + | Ion Castanon MD 03/01/2018 12:25 PM Date of Procedure: | | | 03/01/18 Primary Surgeon: Ion Castanon MD Co Surgeon or | | | printing bindery assistant: Eldon Gonzalez MD, Chief Resident Alexx [...] The jejunum was divided with 60 mm Maunawili stapler with white | | | load [...] created in each limb and a 60mm Maunawili stapler | | | with white load was fired to create a rmve-rl-urmy | | | jejunojejunostomy. The anastamosis was confirmed to be widely | | | patent and hemostatic. The common enterotomy was closed by placing | | | 2 stay sutures along the enterotomy for retraction and firing an | | | Maunawili 60mm stapler with white load across the [...] | | | was entered. The 60mm Maunawili stapler with blue load was placed | [...] blue load of the 60mm stapler. The Maunawili was then fired | | | longitudinally towards the angle of His to create the gastric pouch, | | | leaving the gastrotomy from foreign body removal, on the pouch. | | | Dissection was performed retrogastric to connect posterior and | | | anterior dissection planes and ensure adequate fundus exclusion. | | | Additional fires of the Maunawili stapler were performed with blue | | [...] with | | | 5 mm clip bottom finisher. A 25mm Orvil was passed transorally by [...] was closed with 60mm | | | Maunawili stapler with a white load. Medially and [...] was present | | | as my printing bindery assistant for the entire procedure, given the technically | | | challenging nature of this procedure. She assisted in all critical | | | steps of the procedure. Dr. Gonzalez was present for endoscopy at the | | | end of the procedure. Ion Castanon MD, FACS, [facility] | | | Bariatric Surgery | [...] MD Co Surgeon or | | | printing bindery assistant: Eldon Gonzalez MD, Chief Resident Alexx [...] The jejunum was divided with 60 mm Maunawili stapler with white | | | load [...] created in each limb and a 60mm Maunawili stapler | | | with white load was fired to create a olja-bu-thvm | | | jejunojejunostomy. The anastamosis was confirmed to be widely | | | patent and hemostatic. The common enterotomy was closed by placing | | | 2 stay sutures along the enterotomy for retraction and firing an | | | Maunawili 60mm stapler with white load across the [...] | posterior to the nish limb. A NatLogan liver retractor was | | | placed [...] | | | was entered. The 60mm Maunawili stapler with blue load was placed | [...] blue load of the 60mm stapler. The Maunawili was then fired | | | longitudinally towards the angle of His to create the gastric pouch, | | | leaving the gastrotomy from foreign body removal, on the pouch. | | | Dissection was performed retrogastric to connect posterior and | | | anterior dissection planes and ensure adequate fundus exclusion. | | | Additional fires of the Maunawili stapler were performed with blue | | [...] with | | | 5 mm clip bottom finisher. A 25mm Orvil was passed transorally by [...] was closed with 60mm | | | Maunawili stapler with a white load. Medially and [...] was present | | | as my printing bindery assistant for the entire procedure, given the technically | | | challenging nature of this procedure. She assisted in all critical | | | steps of the procedure. Dr. Gonzalez was present for endoscopy at the | | | end of the procedure. Ion Castanon MD, FACS, [facility] | | | [...] AMES | [address] | [place], [place] | | | [facility] | [address] | [address] | | | TESTS | | | [...]
--- OUTSIDE RECORDS SUMMARY | ~2019-06-25 | XMS | Encounter Summary ---
Demographics + + + | Address | [address] | | | [place] [address] | + + + | Home Phone [...] Author | [facility] | | | and Jeffana | + + + | Organization | [facility] | | | and [...] Team Providers + +------+ + | Care Deliverer Food Name | Role | Phone | + +------+ + PCP | Unavailable | + +------+ + Encounter Details +--------+ + + + + | Date | Type | Department | Care Team | Description | +--------+ + + + + | 02/22/ | Orders Only | [facility] | Sulema Altamirano | | | 2019 | | CONVERSION [address] | Toshia, CITY CARRIER ASSISTANT [address] | | | | | [address] | [place] | | | | | [place], [place] | [place] [address] | | | | | [address] | | | | | | [phone] | | | +--------+ + + + [...] 0.61 m/s | | | MV Dec Trego: 2.43 m/s2 MV DecT: 247.51 ms MV E Jeffrey: 0.60 | | | m/s MV E/A Ratio: 0.98 MV PHT: 71.78 ms MVA By PHT: 3.06 | | | cm2 Septal e': 0.06 m/s Septal E/e': 9.54 Lateral e': 0.10 | | | m/s Lateral E/e': 5.84 RAP: 5 mmHg RV s': 0.11 m/s | | | Senior Research Fellow: JESSICA Authenticated by: Darryl Mrerill Report Date/Time: | | | 02-22-2019 20:8:36 | | + + + + --------+ | Procedure Note | + --------+ | Aditya, Rad Conversion - 03/17/2019 1:08 PM PDT Patient Name: Tiny Cristina of | | : 1975 Performing Physician: Darryl | | Rossysabine INDICATIONS------ | | -----Sinus Tachycardia CONCLUSIONS 1. [...] cmLVIDd: 4.70 cmLVPWd: 0.79 cmLVOT Area: 3.58 [id number] Diam: 2.13 cm%FS: 39.25 | | %EF(Teich): [...] | Index (A-L): 14.72 ml/m2LAAs A2C: 10.03 [id number] A-L A2C: 22.69 mlLALs A2C: 3.76 | | cmLAAs A4C: 13.41 [id number] A-L A4C: 36.80 mlLALs A4C: 4.14 cmRAAs: 11.18 | | [id number] A-L: 22.84 mlRAESV MOD: 22.10 mlRALs: 4.64 cmTAPSE: 2.04 cmAV maxPG: | | 6.55 mmHgAV meanP.52 mmHgAV Vmax: 1.27 m/Genesis Vmean: 0.88 m/Genesis VTI: 26.50 | | cmAVA Vmax: 2.49 cm2AVA (VTI): 2.39 jo1CJFA Vmax: 0.00 cm2/m2AVAI (VTI): 0.00 | | cm2/m2LVOT maxP.17 mmHgLVOT meanP.82 mmHgLVSI Dopp: 30.83 ml/m2LVSV Dopp: | | 63.52 mlLVOT Vmax: 0.89 m/sLVOT Vmean: 0.65 m/sLVOT VTI: 17.71 cmMV A Jeffrey: | | 0.61 m/sMV Dec Trego: 2.43 m/s2MV DecT: 247.51 msMV E Jeffrey: 0.60 m/sMV E/A Ratio: | | 0.98MV PHT: 71.78 msMVA By PHT: 3.06 ef6Jvlcrg e': 0.06 m/sSeptal E/e': | | 9.54Lateral e': 0.10 m/sLateral E/e': 5.84RAP: 5 mmHgRV s': 0.11 m/s | | Senior Research Fellow: HONEYuthenticated by: Darryl Hess Date/Time: 02-22-2019 20:8:36 [...] A Jeffrey: 0.61 m/s | |MV Dec Trego: 2.43 m/s2 | |MV DecT: 247.51 ms | |MV E Jeffrey: 0.60 m/s | |MV E/A Ratio: 0.98 | |MV PHT: 71.78 ms | |MVA By PHT: 3.06 cm2 | |Septal e': 0.06 m/s | |Septal E/e': 9.54 | |Lateral e': 0.10 m/s | |Lateral E/e': 5.84 | |RAP: 5 mmHg | |RV s': 0.11 m/s | | | |Senior Research Fellow: JESSICA | |Authenticated by: Darryl Merrill | [...]
--- OUTSIDE RECORDS SUMMARY | ~2019-06-25 | XMS | Encounter Summary ---
Demographics + + + | Address | [address] | | | [place] [address] | + + + | Home Phone [...] + | Author | [facility] | | | and Jeffana | + + + | Organization | [facility] | | | [...] Team Providers + +------+ + | Care Drain Layer Name | Role | Phone | + +------+ + PCP | Unavailable | + +------+ + Encounter Details +--------+ + + + + | Date | Type | Department | Care Team | Description | +--------+ + + + + | 10/20/ | Orders Only | [facility] | Conversion | | | 2016 | | NEPHROLOGY JESUS | Transaction, | | | | | [address] | Provider Unknown | | | | | [address] [place] [address] | | | | | | [address] | (Fax) | | | | | [phone] | | | +--------+ + + + [...]
--- OUTSIDE RECORDS SUMMARY | ~2019-06-25 | XMS | Encounter Summary ---
Demographics + + + | Address | [address] | | | [place] [address] | + + + | Home Phone [...] [place], [place] | | | | | [address] | | + + + + + | Ellie Vang | ECON | Unknown | | + + + + + Care Team Providers + +------+ + | Care Flat Drier Name | Role | Phone | [...] Medical Records | | 2018 | | [place] [address] | [address] | Review | | | | Ave Mailcode: CH[address]S | [place], [place] | | | | | [facility] | [address] | | | | | and [place]rick, | [phone] | | | | | [place] [address] | | | | | | Floor [place], [place] | | | | | | [address] | | | | | | [phone] | | | +--------+ + + + [...] [place] | | | | | | [address] | | | | | | [phone] | | | | | | | | +--------+ + + + + | 08/19/ | Surgery | Surgery | Chilo, | OPEN VENTRAL HERNIA | | 2019 | | | MD [address] | REPAIR WITH | | | | | [address] | BIOLOGICAL MESH | | | | | [place], [place] | | | | | | [address] | | | | | | [phone] | | | | | | | | +--------+ + + + + | 09/15/ | Office | Cardiology | Randell Franks, | | | 2020 | Visit | | [address] | | | | | | [address] [place], [place] | | | | | | [address] | | | | | | [phone] | | | | | | | | +--------+ + + + + documented as of this encounter Visit Diagnoses Not on filedocumented in this encounter"
--- OUTSIDE RECORDS SUMMARY | ~2019-06-25 | XMS | Encounter Summary ---
Demographics + + + | Address | [address] | | | [place] [address] | + + + | Home Phone [...] [place], [place] | | | | | [address] | | + + + + + | Ellie Vang | ECON | Unknown | | + + + + + Care Team Providers + +------+ + | Care Supervisor Coin Machine Name | Role | Phone | + +------+ + | Fadi Goodrich DO | PCP | | + +------+ + Encounter Details +--------+ + + + + | Date | Type | Department | Care Team | Description | +--------+ + + + + | 02/10/ | Abstract | Dig[facility] | Hernandez Brian, | | | 2012 | | Center at [facility] [address] | MD [address] | | | | | [address] | [facility] | | | | | Mailcode: Center | [place], [place] | | | | | [facility] | [address] | | | | | [facility] 2 | [phone] | | | | | [place], [place] | | | | | | [address] | | | | | | [phone] | | | +--------+ + + + [...] Rd | | | | | | [place], [place] | | | | | | [address] | | | | | | [phone] | | | | | | | | +--------+ + + + + | 08/19/ | Surgery | Surgery | Chilo, | OPEN VENTRAL HERNIA | | 2019 | | | MD Jorje [address] | REPAIR WITH | | | | | [address] | BIOLOGICAL MESH | | | | | [facility] [place] | | | | | | [address] | | | | | | [phone] | | | | | | | | +--------+ + + + + | 09/15/ | Office | Cardiology | Randell Franks, | | | 2019 | Visit | | [address] | | | | | | [place] [facility] [place] | | | | | | [address] | | | | | | [phone] | | | | | | | | +--------+ + + + + documented as of this encounter Visit Diagnoses Not on filedocumented in this encounter"
--- OUTSIDE RECORDS SUMMARY | ~2019-06-25 | XMS | Encounter Summary ---
Demographics + + + | Address | [address] | | | [place] [address] | [...] + + + | Author | [facility] | | | and [facility] | + + + | Organization | [facility] | | | and [place] | + + + | Address | Unknown | + + + | Phone | Unavailable | + + + Support + + +---------+ + | Name | Relationship | Address | Phone | + + +---------+ + | Katalnia Padilla | ECON | Unknown | Unavailable | + + +---------+ + | Ellie Barnett | ECON | Unknown | | + + +---------+ + Care Team Providers + +------+ + | Care Design Draftsman Name | Role | Phone | + +------+ + PCP | Unavailable | + +------+ + Encounter Details +--------+ + + + + | Date | Type | Department | Care Team | Description | +--------+ + + + + | 02/16/ | Orders Only | [facility] | Sulema Altamirano | | | 2017 | | CONVERSION [address] | Toshia, CIRCULAR SHEAR OPERATOR [address] | | | | | [address] | [place] | | | | | [place], [place] | [place] [address] | | | | | [address] | | | | | | [phone] | (Fax) | | +--------+ + + [...] 5.71 | | | RAP: 5 mmHg Psychiatric Technician Assistant: JESSICA Authenticated by: BENJY | | | [...] cmLVPWd: 0.81 | | cmLVOT Area: 3.98 yx1IRPI Diam: 2.25 cm%FS: 32.91 %EF(Teich): 61.28 | [...] (A-L): 20.64 ml/m2LAAs A2C: 14.37 | | hr2NWZLL A-L A2C: 40.74 mlLALs A2C: 4.30 cmLAAs A4C: 16.09 os5ZPICZ A-L A4C: | | 43.02 mlLALs A4C: 5.10 cmRAAs: 13.58 jn3ZAEIY A-L: 33.08 mlRAESV MOD: 32.14 | | mlRALs: 4.73 cmTAPSE: 2.16 cmAV maxP.33 mmHgAV meanP.31 mmHgAV Vmax: | | 1.60 m/Genesis Vmean: 1.08 m/Genesis VTI: 25.19 cmAVA Vmax: 2.75 cm2AVA (VTI): 3.06 | | iw7KKYE Vmax: 0.00 cm2/m2AVAI (VTI): 0.00 cm2/m2LVOT maxP.93 mmHgLVOT meanPG: | | 2.50 mmHgLVSI Dopp: 34.92 ml/m2LVSV Dopp: 77.18 mlLVOT Vmax: 1.11 m/sLVOT Vmean: | | 0.73 m/sLVOT VTI: 19.34 cmMV A Jeffrey: 0.81 m/sMV DecT: 249.81 msMV E Jeffrey: 0.82 | | m/sMV E/A Ratio: 1.01MV PHT: 72.44 msMVA By PHT: 3.03 de8Eeghyq e': 0.07 | | m/sSeptal E/e': 11.80Lateral e': 0.14 m/sLateral E/e': 5.71RAP: 5 mmHg | | Psychiatric Technician Assistant: HONEYuthenticated by: Shirley SILVER Date/Time: 02-16-2017 18:47:15 [...] | |RAP: 5 mmHg | | | |Psychiatric Technician Assistant: | |Authenticated by: BENJY HANKINS MD | [...]
--- OUTSIDE RECORDS SUMMARY | ~2019-06-25 | XMS | Encounter Summary ---
Demographics + + + | Address | [address] | | | [place] [address] | + + + | Home Phone [...] [place], [place] | | | | | [address] | | + + + + + | Ellie Vang | ECON | Unknown | | + + + + + Care Team Providers + +------+ + | Care Eyeglass Lens Generator Name | Role | Phone | + +------+ + | Fadi Goodrich DO | PCP | | + +------+ + Encounter Details +--------+ + + + + | Date | Type | Department | Care Team | Description | +--------+ + + + + | 06/07/ | Hospital | Radiology/Imaging | Ronna Clarke, | | | 2018 | Encounter | Lab at [facility] [address] | ACNP [address] | | | | | [address] [place] Mailcode: | [place], [place] | | | | | [address] [facility] | [address] | | | | | Health and Healing, | [phone] | | | | | [address] | | | | | | Floor [place], [place] | | | | | | [address] | | | | | | [phone] | | | +--------+ + + + [...] | | 0 | | | | CRB&KAE-[id number]-GEN | mouth two times | | | [...] Rd | | | | | | [place], [place] | | | | | | [address] | | | | | | [phone] | | | | | | | | +--------+ + + + + | 08/19/ | Surgery | Surgery | Chilo | OPEN VENTRAL HERNIA | | 2019 | | | MD [address] | REPAIR WITH | | | | | [address] | BIOLOGICAL MESH | | | | | [place], [place] | | | | | | [address] | | | | | | [phone] | | | | | | | | +--------+ + + + + | 09/15/ | Office | Cardiology | Randell Franks, | | | 2020 | Visit | | [address] | | | | | | [place], [place] | | | | | | [address] | | | | | | [phone] | | | | | | | [...] + + + | EXAM: Esophagram with round boner radiograph HISTORY: RYGB 03/01/2018, | [facility] | | vomiting/pain ever since COMPARISON: 04/27/2018 CT TECHNIQUE: | RADIOLOGY VOICE | | Director Of [employer] radiograph was performed. Single contrast exam of the esophagus, | RECOGNITION 2 | | gastric pouch, and gastrojejunostomy in upright positioning. | | | Radiation dose reduction technique was maximized where appropriate | | | using pulsed fluoroscopy and fluoro-store images. Fluoro Time 57 | | | second(s) FINDINGS: [employer] Of [employer] shows stone in the upper pole of [...] AM PST EXAM: Esophagram | | with round boner radiograph HISTORY: RYGB 03/01/2018, vomiting/pain ever since COMPARISON: | | 04/27/2018 CT TECHNIQUE: Director [employer] radiograph was performed. Single contrast exam of the | | esophagus, gastric pouch, and gastrojejunostomy in upright positioning. Radiation dose | | reduction technique was maximized where appropriate using pulsed fluoroscopy and | | fluoro-store images. Fluoro Time 57 second(s) FINDINGS:Director Of [employer] shows stone in the upper | | [...]
--- OUTSIDE RECORDS SUMMARY | ~2019-06-25 | XMS | Encounter Summary ---
Demographics + + + | Address | [address] | | | [place] [address] | + + + | Home Phone [...] [place], [place] | | | | | [address] | | + + + + + | Ellie Vang | ECON | Unknown | | + + + + + Care Team Providers + +------+ + | Care In Process Inspector Name | Role | Phone [...] | | | | | (HCC) | [place], [place] | Mailcode: | | | | | Procedures | [address] | [address] [facility] | | | | | CT ABDOMEN & | Phone: | Hospital | | | | | PELVIS [address] | | [place], [place] | | | | | IV CONTRAST | Fax: | [address] | | | | | MS CT | [phone] | Phone: | | | | | ABDOMEN&PELV | | [phone] | | | | | IS | | Fax: | | | | | W/CONTRAST | | [phone] | | | | | See chart [...] | 2015 | Encounter | Lab at [facility] [address] | | | | | | [place] Mailcode: | | | | | | [address] [facility] | | | | | | Health and Healing, | | | | | | [place] [address], [facility] | | | | | | Floor [place], [place] | | | | | | [address] | | | | | | [phone] | | | +--------+ + + + [...] Rd | | | | | | [place], [place] | | | | | | [address] | | | | | | [phone] | | | | | | | | +--------+ + + + + | 08/19/ | Surgery | Surgery | Chilo, | OPEN VENTRAL HERNIA | | 2019 | | | MD Jorje [address] | REPAIR WITH | | | | | [address] | BIOLOGICAL MESH | | | | | [place], [place] | | | | | | [address] | | | | | | [phone] | | | | | | | | +--------+ + + + + | 09/15/ | Office | Cardiology | Randell Franks, | | | 2019 | Visit | | MD [address] | | | | | | [address] [place], [place] | | | | | | [address] | | | | | | [phone] | | | | | | | [...] + + | JUSTINE PEÑA | [address] [facility] | [place] [address] | | | OF CARE TESTS | | | | + + + + + documented in this encounter Visit Diagnoses + + | Diagnosis | + + | Abdominal pain | + + | Morbid obesity (HCC) Morbid obesity | + + documented in this encounter"
--- OUTSIDE RECORDS SUMMARY | ~2019-06-25 | XMS | Encounter Summary ---
Demographics + + + | Address | [address] | | | [place] [address] | + + + | Home Phone [...] [place], [place] | | | | | [address] | | + + + + + [...] 2018 | | Center at [facility] [address] | ACNP [address] | | | | | [address] | [place], [place] | | | | | Mailcode: [place] | [address] | | | | | for Health and | [phone] | | | | | [place] [address] | | | | | | [place], [place] | | | | | | [address] | | | | | | [phone] | | | +--------+ + + + [...] Rd | | | | | | [place], [place] | | | | | | [address] | | | | | | [phone] | | | | | | | | +--------+ + + + + | 08/19/ | Surgery | Surgery | Chilo | OPEN VENTRAL HERNIA | 2019 | | | Jorje, MD [address] | REPAIR WITH | | | | | [address] | BIOLOGICAL MESH | | | | | [place], [place] | | | | | | [address] | | | | | | [phone] | | | | | | | | +--------+ + + + + | 09/15/ | Office | Cardiology | Randell Franks, | | | 2020 | Visit | | [address] | | | | | | [place], [place] | | | | | | [address] | | | | | | [phone] | | | | | | | | +--------+ + + + + documented as of this encounter Visit Diagnoses Not on filedocumented in this encounter"
--- OUTSIDE RECORDS SUMMARY | ~2019-06-25 | XMS | Encounter Summary ---
Demographics + + + | Address | [address] | | | [place] [address] | + + + | Home Phone [...] [place], [place] | | | | | [address] | | + + + + + | Ellie Vang | ECON | Unknown | | + + + + + Care Team Providers + +------+ + | Care Quality Assurance Supervisor Trim Name | Role | Phone | + [...] | | | | | [address] [place], | | | | | | [place] [address] | | | | | | [phone] | | | +--------+------+ + + + [...] [place] | | | | | | [address] | | | | | | [phone] | | | | | | | | +--------+ + + + + | 08/19/ | Surgery | Surgery | Chilo, | OPEN VENTRAL HERNIA | | 2019 | | | MD Jorje [address] | REPAIR WITH | | | | | [address] | BIOLOGICAL MESH | | | | | [place], [place] | | | | | | [address] | | | | | | [phone] | | | | | | | | +--------+ + + + + | 09/15/ | Office | Cardiology | Randell Franks, | | | 2019 | Visit | | [address] | | | | | | Ave [place], [place] | | | | | | [address] | | | | | | [phone] | | | | | | | [...] | [facility] | [address] [facility] | [place] [address] | | | SERVICES, CORE | CLARENCE [...] | [facility] | [address] | [place] [address] | | | [facility] | [...] (H)Comment: Hbg A1c | <5.7 % | [facility] | | | A1C | Interpretive [...] NKECHI ROBERTS | [address] | [place] [address] | | | SERVICES, SPECIAL | PARK [...]
--- OUTSIDE RECORDS SUMMARY | ~2019-06-25 | XMS | Encounter Summary ---
Demographics + + + | Address | [address] | | | [place] [address] | + + + | Home Phone [...] [place], [place] | | | | | [address] | | + + + + + | Ellie Vang | ECON | Unknown | | + + + + + Care Team Providers + +------+ + | Care Construction Rigger Name | Role | Phone | [...] + + | 05/13/ | Emergency | [facility] Emergency | Nay Joe | | | 2019 - | | Department [address] MD [address] | | | | | [address] | [address] | | | 05/14/ | | [facility] | [place], [place] | | | 2019 | | [place], [place] | [address] | | | | | [address] | [phone] | | | | | [phone] | | | +--------+ + + + [...] might be different fr om the original. [facility] Discharge Summary Green Surgery [...] by mouth once daily at bedtime. CALCIUM CRB&BIJ-[id number]-GENIS ORAL Take 2 tablets by mouth two [...] passing gas, please go directly to [facility] to be evaluated. [...] the prescribed narcotic-opioid (e.g. oxycodone, hydrocodone, Vicodin, Coxsackie, Percoce t, Dilaudid) as needed. Opioid pain medications may cause constipation, so be sure to take a stool softener if you take an opioid pain medication. FOLLOW-UP: Follow-up with your primary care provider for pain control. Dr. Tiwari's can runner will contact you to try to find a date for surgery. Follow Up: Future Appointments Provider Department Dept Phone Center 06/27/2019 11:55 AM [facility] PHONE/RN CLIN 3 Preoperative Medicine Clinic at [place] [address] [phone] [facility] 06/30/2019 11:30 AM Aly Franks Cardiology in [facility] Schedule the following appointment(s) when you get home JONES TIWARI MD. Specialty: General Surgery Why: Dr. Tiwari's can runner will call you to schedule a surgery date. Contact information [address] [place] [address] [place] [address] Kenyatta Hylton MD. Specialty: Family [...] oriented. Grossly intact. Anisa Christopher MD PhD [facility] General Surgery ATTENDING PHYSICIAN STATEMENT I saw the patient and have repeated the pertinent portions of the history and physical exam . I agree with the findings, assessment and plan as documented by the resident. Johana Holloway MD Division of Gastrointestinal and General Surgery [facility] [address] [place] [address] Office: [phone] documented in this e ncounter Discharge Instructions [...] surgery date up as possible and the can runner will contact you. Elec tronically signed by Anisa Christopher MD at 05/14/2019 8:35 AM PDT Discharge Instr - Electronic Signature Anisa Christopher MD - 05/14/2019 8:44 AM PDTAfter Visit Summary Signature Electronically signed by: Anisa Christopher MD, 05/14/2019 at 8:44 AM Additional Instructions Anias Christopher MD - 05/14/2019 8:36 AM PDTMEDICATIONS: [...] passing gas, please go directly to the [facility] department to be evaluated. [...] the prescribed narcotic-opioid (e.g. oxycodone, hydrocodone, Vicodin, Coxsackie, Percoce t, Dilaudid) as needed. Opioid pain medications may cause constipation, so be sure to take a stool softener if you take an opioid pain medication. FOLLOW-UP: Follow-up with your primary care provider for pain control. Dr. Tiwari's can runner will contact you to try to find [...] | | 0 | | | | CRB&ILR-[id number]-GEN | mouth two times | | | [...] [place] | | | | | | [address] | | | | | | [phone] | | | | | | | | +--------+ + + + + | 08/19/ | Surgery | Surgery | Chilo, | OPEN VENTRAL HERNIA | | 2019 | | | MD Jones [address] | REPAIR WITH | | | | | [address] | BIOLOGICAL MESH | | | | | [place], [place] | | | | | | [address] | | | | | | [phone] | | | | | | | | +--------+ + + + + | 09/15/ | Office | Cardiology | Aly Franks, | | | 2019 | Visit | | [address] | | | | | | Ave [place], [place] | | | | | | [address] | | | | | | [phone] | | | | | | | [...] MARQUAM | [address] | [place], [place] | | | JUSTINE DAWN OF CARE | [address] | [address] | | | TESTS | | | [...] + + + + + | [facility] | [address] [facility] | [place] [address] | | | SERVICES, CORE | CLARENCE [...] | | | LABORATORY | | | ESTONIAN | | | SERVICES, | | | [...] + + + | [facility] [employer] | [address] [facility] [facility] | [place] [address] | | | CLAIRE, LYDIA | PARK [...] Note | + + | Service Account, [email or web address] Res In Interface - 05/13/2019 9:06 PM [...] | [facility] | [address] | [place] [address] | | | SERVICES, CORE | CLARENCE [...] 5-6 weeks | | | 850 - 64901 6-7 weeks | | | 4000 - 225164 7-12 weeks | | | 76686 - 785662 12-16 weeks | | | 50422 - 783159 16-29 | | | weeks 1400 - 42177 | | | 29-41 weeks 940 - 99437 | | | This test has not been approved for use as a tumor marker in | | | males or females. | | + + + + + + + + | Performing | Address | City/State/Zipcode | Phone Number | | Organization | | | | + + + + + | [facility] | [address] | [place] [address] | | | SERVICES, CORE | PARK [...] + + + + + | [facility] | [address] [facility] | [place] [address] | | | SERVICES, CORE | CLARENCE [...] | | | LABORATORY | | | ESTONIAN | | | SERVICES, | | | [...] MDRD equation recommended by the National | [facility] | | Kidney Disease Education Program. Estimated [...] + + + + + | [facility] | [address] [facility] | [place] [address] | | | SERVICES, CORE | [address] | | | + + + + + ED INFORMATION EXCHANGE (05/13/2019 5:14 PM PDT) + + | Specimen | + + | | + + + + + | Narrative | Performed At | + + + | [facility]?NOTIFICATION?05/13/2019 17:13?DYLAN ROMERO?MRN: | [facility] | | [id number] Criteria Met Has Guidelines PDMP Security | MEDICAL | | and Safety No recent Security Events currently on file ED Care | [employer] | | Guidelines from [facility] Last Updated: 12/06/18 9:53 AM | | | Care Coordination: Receiving mental health services with | | | [facility].? Please contact [employer] for mental health concerns.? | | | Sarah/Toni Centeno: [phone]? Kishan: [phone].? | | | These are guidelines and the provider should exercise clinical | | | judgment when providing care. Care History Medical/Surgical | | | 05/11/19 12:00 AM [facility] Patient is | | | currently established with [facility]. If patient is seen in | | | the ED during business hours. Please contact CHWs at [facility] | | | Clinic. Care Recommendation: This [...] care. 08/23/18 12:00 AM | | | [facility] PATIENT HAS A PCP APT TO ESTABLISH | | | CARE ON 10/04/18 @ 10:00AM WITH DR HYLTON. Prescription | | | Drug Report (12 Mo.) Rx Details Fill Date Drug Description Qty. | | | Prescriber MED 2019-05-12 FENTANYL 12 MCG/HR PATCH 5 BETZY | | | JAVIER BALDWIN 2 0 2019-04-18 ALPRAZOLAM 1 MG TABLET 60 WINSOTN JEFFAS 4 | | | 0 2019-04-13 BELBUCA 600 MCG FILM 57 BETZY BALDWIN PA-C 0 | | | 2019-04-12 BELBUCA 600 MCG FILM 3 BETZY BALDWIN PA-C 0 | | | 2019-04-09 SUDOGEST 30 MG TABLET 5 BERNARDO MARTIN, MARKER SHIPMENTS 0 | | | 2019-03-30 SUDOGEST 30 MG TABLET 30 BERNARDO MARTIN, MARKER SHIPMENTS 0 | | | 2019-03-20 ALPRAZOLAM 1 [...] FILM 56 | | | [facility] 0 2019-01-31 PHENTERMINE 37.5 MG TABLET 30 [...] Facility Visits | | | [facility] 1 [facility] 1 | | | [facility] 2 Total 4 Note: Visits indicate total | | | known visits. Recent Emergency Department Visit Summary Date | | | Facility City State Type Diagnoses or Chief Complaint May 13, 2019 | | | [facility] [place] Emergency | | | 10,800. A303 May 10, 2019 [facility]. [place] | | | Emergency Nausea with vomiting, unspecified Solitary | | | pulmonary nodule Anxiety disorder, unspecified Ventral | | | hernia without obstruction or gangrene Unspecified abdominal | | | pain Diarrhea, unspecified Allergy status to oth | | | drug/meds/biol subst status Prsnl hx of TIA (TIA), and cereb | | | infrc w/o resid deficits Other ferry terminal agent (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 | | | Allergy status to penicillin December 03, 2018 [facility] | | | Health [place]. [place] Emergency RIGHT LEG PAIN DUE TO FALL | | | Strain of unsp musc/tend at lower leg level, right leg, init Jul | | | 2018 [facility]. [place] Emergency Other ferry terminal agent | | | (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 Upper abdominal pain, unspecified | | | Bariatric surgery status Allergy status to oth drug/meds/biol | | | subst status Noninfective gastroenteritis and colitis, | | | unspecified Obesity, unspecified Anxiety disorder, | | | unspecified ad terminal makeup operator (current) use of aspirin Allergy | | | status to penicillin Personal history of pulmonary embolism | | | Recent Inpatient Visit Summary No recorded inpatient visits. | | | Care Team Provider Specialty Phone Fax Service Dates Treva, | | | Rob Engineering Department Chair/Managing Consultant Mar 27, 2018 - | | | Current Bernard Hylton MD Internal Medicine: Pulmonary Disease | | | Aug 23, 2018 - Current Tiggly This patient has | | | registered at the [facility] Emergency | | | Department For more information visit: | | | [email or web address] | | | [email or web address] PLEASE NOTE: 1. Any care recommendations [...] or completeness of information provided. ? 2019 [email or web address] | | | [employer] - [email or web address] | | + + + + + | Procedure Note | + + | Service Account, Rtf Results Inbound - 05/13/2019 5:16 PM PDT Formatting of this | | note might be different from the original.COLLECTIVE?NOTIFICATION?05/13/2019 | | 17:13?DYLAN ROMERO? [facility] Has Guidelines PDMPSecurity and | | SafetyNo recent Security Events currently on fileED Care Guidelines from [employer] - | | [place] Updated: 12/06/18 9:53 AM Care Coordination:Receiving mental health | | services with [employer].? Please contact [employer] for mental health concerns.? | | Sarah/Toni Centeno: [phone]? Kishan: [phone].?These are guidelines | | and the provider should exercise clinical judgment when providing care.Care | | HistoryMedical/Jchubcok64/16/19 12:00 AM [facility] Patient is currently | | established with [facility]. If patient is seen in the ED during business hours. | | Please contact CHWs at [facility].Care Recommendation:This patient has had 5 [...] clinical judgment when providing care.08/23/18 12:00 AM [facility] | | Hospital PATIENT HAS [...] SUDOGEST 30 MG TABLET 5 BERNARDO MARTIN, MARKER SHIPMENTS 0 2019-03-30 SUDOGEST 30 MG TABLET 30 | | BERNARDO MARTIN, MARKER SHIPMENTS 0 2019-03-20 ALPRAZOLAM 1 MG TABLET 60 [...] 0 E.D. Visit Count (12 mo.)Facility Visits [facility] | | [facility] 1 [facility] 1 [facility] 2 Total 4 Note: | | Visits indicate total known visits. Recent Emergency Department Visit SummaryDate | | Facility City State Type Diagnoses or Chief Complaint May 13, 2019 [facility] | | [facility] [place] Emergency 10,800. A303 May 10, 2019 [facility] | | [place] Emergency Nausea [...] December 03, 2018 | | [facility] [place] Emergency RIGHT LEG PAIN DUE TO FALL Strain of | | unsp musc/tend at lower leg level, right leg, init Aug 22, 2018 [facility] | | [place] Emergency Other ferry terminal agent (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 Upper abdominal pain, | | unspecified Bariatric surgery status Allergy status to oth drug/meds/biol subst | | status Noninfective gastroenteritis and colitis, unspecified Obesity, unspecified | | Anxiety disorder, unspecified nursing home (current) use of aspirin Allergy status | | to penicillin Personal history of pulmonary embolism Recent Inpatient Visit | | SummaryNo recorded inpatient visits. Care TeamProvider Specialty Phone Fax Service Dates | | Rob Tilley Engineering Department Chair/Managing Consultant Mar 27, 2018 - Current | | Bernard Hylton MD Internal Medicine: Pulmonary Disease Aug 23, 2018 - Current | | TigglyThis patient has registered at the [facility] | | Emergency Department For more information visit: | | [email or web address] PLEASE | | NOTE: 1. Any care [...] completeness of information | | provided.? 2019 [employer] | |[facility] 3 | |Benzos 4 | |Opioids 7 | |Long Acting Opioids 0 | | | | | | | |E.D. Visit Count (12 mo.) | |Facility Visits | |[facility] 1 | |[facility] 1 | |[facility] 2 | |Total 4 | |Note: Visits indicate total known visits. | | | |Recent Emergency Department Visit Summary | |Date Facility City State Type Diagnoses or Chief Complaint | |May 13, 2019 [facility] [place] Emergency | | 10,800. A303 | | | |May 10, 2019 [facility] [place] Emergency | | Nausea with vomiting, unspecified | | Solitary pulmonary nodule | | Anxiety disorder, unspecified | | Ventral hernia without obstruction or gangrene | | Unspecified abdominal pain | | Diarrhea, unspecified | | Allergy status to oth drug/meds/biol subst status | | Prsnl hx of TIA (TIA), and cereb infrc w/o resid deficits | | Other ferry terminal agent (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 | | Allergy status to penicillin | | | |December 03, 2018 [facility] [place] Emergency | | RIGHT LEG PAIN DUE TO FALL | | Strain of unsp musc/tend at lower leg level, right leg, init | | | |Aug 22, 2018 [facility] [place] Emergency | | Other usp (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 | | Upper abdominal pain, unspecified | | Bariatric surgery status | | Allergy status to oth drug/meds/biol subst status | | Noninfective gastroenteritis and colitis, unspecified | | Obesity, unspecified | | Anxiety disorder, unspecified | | ad terminal makeup operator (current) use of aspirin | | Allergy status to penicillin | | Personal history of pulmonary embolism | | | | | | | |Recent Inpatient Visit Summary | |No recorded inpatient visits. | | | |Care Team | |Provider Specialty Phone Fax Service Dates | |Rob Tilley Engineering Department Chair/Managing Consultant Mar 27, 2018 - Current | |Bernard Hylton MD Internal Medicine: Pulmonary Disease Aug 23, 2018 - Current | | | |[facility] Portal | |This patient has registered at the [facility] [place] [facility] t | |For more information visit: [email or web address] | |PLEASE NOTE: | | 1. Any care recommendations and other clinical information are provided as guidelines or for historical purposes only, and providers should exercise their own clinical judgment whe n providing care. | | 2. You may only use this information for purposes of treatment, payment or health care o perations activities, and subject to the limitations of applicable [facility] Policies. | | 3. You should consult directly with the organization that provided a care guideline or o ther clinical history with any questions about additional information or accuracy or complet eness of information provided. | | | |? 2019 [employer]. - [email or web address] | + + + + + + + | Performing | Address | City/State/Zipcode | Phone Number | | Organization | | | | + + + + + | [facility] | [address], | [place], [place] | [phone] | | TECH[employer]OLOGIES | [address] | [address] | | + + + + + [...]
--- OUTSIDE RECORDS SUMMARY | ~2019-06-25 | XMS | Encounter Summary ---
Demographics + + + | Address | [address] | | | [place] [address] | + + + | Home Phone [...] [place], [place] | | | | | [address] | | + + + + + | Ellie Vang | ECON | Unknown | | + + + + + Care Team Providers + +------+ + | Care Information Clerk Cashier Name | Role | Phone | + +------+ + | Fadi Goodrich DO | PCP | | + +------+ + Encounter Details +--------+ + + + + | Date | Type | Department | Care Team | Description | +--------+ + + + + | 07/06/ | Abstract | Digestive Health | Clinic, Surgery | | | 2016 | | [place] [facility] [address] | | | | | | [address] | | | | | | Mailcode: [place] | | | | | | [facility] and | | | | | | [facility] 2 | | | | | | [place], [place] | | | | | | [address] | | | | | | [phone] | | | +--------+ + + + [...] Rd | | | | | | [facility] [place] | | | | | | [address] | | | | | | [phone] | | | | | | | | +--------+ + + + + | 08/19/ | Surgery | Surgery | Chilo, | OPEN VENTRAL HERNIA | | 2019 | | | MD Jorje [address] | REPAIR WITH | | | | | [address] | BIOLOGICAL MESH | | | | | [place], [place] | | | | | | [address] | | | | | | [phone] | | | | | | | | +--------+ + + + + | 09/15/ | Office | Cardiology | Randell Franks, | | | 2019 | Visit | | MD [address] | | | | | | [address] [place], [place] | | | | | | [address] | | | | | | [phone] | | | | | | | | +--------+ + + + + documented as of this encounter Visit Diagnoses Not on filedocumented in this encounter"
--- OUTSIDE RECORDS SUMMARY | ~2019-06-25 | XMS | Encounter Summary ---
Demographics + + + | Address | [address] | | | [place] [address] | + + + | Home Phone [...] [place], [place] | | | | | [address] | | + + + + + | Ellie Vang | ECON | Unknown | | + + + + + Care Team Providers + +------+ + | Care Product Director Name | Role | Phone | [...] 2019 | | Center at [facility] [address] | | Review | | | | [address] | | | | | | Mailcode: [place] | | | | | | [facility] and | | | | | | [facility] 2 | | | | | | [place], [place] | | | | | | [address] | | | | | | [phone] | | | +--------+ + + + [...] Rd | | | | | | [place], [place] | | | | | | [address] | | | | | | [phone] | | | | | | | | +--------+ + + + + | 08/19/ | Surgery | Surgery | [place], | OPEN VENTRAL HERNIA | | 2019 | | | MD Jorje [address] | REPAIR WITH | | | | | [address] | BIOLOGICAL MESH | | | | | [place], [place] | | | | | | [address] | | | | | | [phone] | | | | | | | | +--------+ + + + + | 09/15/ | Office | Cardiology | Randell Franks, | | | 2019 | Visit | | [address] | | | | | | [place], [place] | | | | | | [address] | | | | | | [phone] | | | | | | | | +--------+ + + + + documented as of this encounter Visit Diagnoses Not on filedocumented in this encounter"
--- OUTSIDE RECORDS SUMMARY | ~2019-06-25 | XMS | Encounter Summary ---
Demographics + + + | Address | [address] | | | [place] [address] | + + + | Home Phone [...] | Author | [facility] | | | and Jeffana | + + + | Organization | [facility] | | | and [...] Team Providers + +------+ + | Care Soybean Grower Name | Role | Phone | + +------+ + PCP | Unavailable | + +------+ + Encounter Details +--------+ + + + + | Date | Type | Department | Care Team | Description | +--------+ + + + + | 04/14/ | Orders Only | [facility] | Conversion | | | 2015 | | NEPHROLOGY J[place] | Transaction, | | | | | [address] | Provider Unknown | | | | | [address] [place] | | | | | | [address] | (Fax) | | | | | [phone] | | | +--------+ + + + [...] - 1.030 | EXTERNAL | | | [place] | | | LAB | | + [...]
--- OUTSIDE RECORDS SUMMARY | ~2019-06-25 | XMS | Encounter Summary ---
Demographics + + + | Address | [address] | | | [place] [address] | + + + | Home Phone [...] Author | [facility] | | | and Jeffana | + + + | Organization | [facility] | | | and Jeffana [...] Providers + +------+ + | Care Director Foundation Name | Role | Phone | + +------+ + PCP | Unavailable | + +------+ + Encounter Details +--------+ + + + + | Date | Type | Department | Care Team | Description | +--------+ + + + + | 03/31/ | Orders Only | [facility] | Dharmesh Escobar, | | | 2017 | | NEPHROLOGY [place] | [address] | | | | | [address] | [address] | | | | | [address] [place], [place] | [place] | | | | | [address] | [address] | | | | | [phone] | [phone] | | | | | | | [...] | | | LAB | | | [place] | | | | | + +---------+ [...]
--- OUTSIDE RECORDS SUMMARY | ~2019-06-25 | XMS | Encounter Summary ---
Demographics + + + | Address | [address] | | | [place] [address] | + + + | Home Phone [...] [place], [place] | | | | | [address] | | + + + + + | Ellie Vang | ECON | Unknown | | + + + + + Care Team Providers + +------+ + | Care Permit Specialist Name | Role | Phone | [...] Randell | | | | | | [address] | [address] | | | | | [address], | Ave | | | | | | [address] | [place], [place] | | | | | | [place], [place] | [address] | | | | | | [address] | Phone: | | | | | | Phone: | [phone] | | | | | | [phone] | Fax: | | | | | | Fax: | [phone] | | | | | | [phone] | | +--------+--------+ + + + + Encounter Details +--------+---------+ + + + | Date | Type | Department | Care Team | Description | +--------+---------+ + + + | 08/29/ | Office | Cardiology | Randell Franks, | HTN (hypertension) | | 2013 | Visit | Preventive at [facility] | MD [address] | (Primary Dx); 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[place], [place]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 | | | | Mailcode: [facility] | [address] | ([facility]); Morbid | | | | [facility] | [phone] | obesity (HCC) | | | | and Healing, | | | | | | Building [address] | | | | | | [place], [place] | | | | | | [address] | | | | | | [phone] | | | +--------+---------+ + + + [...] 08/29/2013 11:23 AM PSTTrudy circumference: 66.5 inches docujanneth in th is encounter Plan of Treatment [...] Rd | | | | | | [place], [place] | | | | | | [address] | | | | | | [phone] | | | | | | | | +--------+ + + + + | 08/19/ | Surgery | Surgery | Chilo, | OPEN VENTRAL HERNIA | | 2019 | | | MD [address] | REPAIR WITH | | | | | [address] | BIOLOGICAL MESH | | | | | [place], [place] | | | | | | [address] | | | | | | [phone] | | | | | | | | +--------+ + + + + | 09/15/ | Office | Cardiology | Randell Franks, | | | 2019 | Visit | | MD [address] | | | | | | [address] [place], [place] | | | | | | [address] | | | | | | [phone] | | | | | | | [...]
--- OUTSIDE RECORDS SUMMARY | ~2019-06-25 | XMS | Encounter Summary ---
Demographics + + + | Address | [address] | | | [place] [address] | + + + | Home Phone [...] [place], [place] | | | | | [address] | | + + + + + | Ellie Vang | ECON | Unknown | | + + + + + Care Team Providers + +------+ + | Care Media Production Manager Name | Role | Phone [...] | 2018 | Visit | Preventive at [facility] | MD Deion [address]arris | mellitus without | | | | [address] | Ave [place], [place] | complication, with | | | | Mailcode: [facility] | [address] | long-term current | | | | [facility] | [phone] | use of insulin (HCC) | | | | and Healing, | | (Primary Dx); | | | | Building 1 | | Chronic right-sided | | | | [place], [place] | | heart failure (HCC) | | | | [address] | | | | | | [phone] | | | +--------+---------+ + + + [...] management of her heart failure by her Medication Nurse 3) Check A1c, lipids 4) Await bariatric surgery in February 2018 5) Continue phentermine 37.5 mg daily 6) Continue wound care, non-pressure ambulation of right foot wound 7) Follow-up 4-6 months In the interim, the patient underwent [facility]ric [facility]. Today, the patient reports [...] 06/23 - She is working with the fire sprinkler service technician in her office - She is taking [...] tongue once daily., Disp: , Rfl: CALCIUM CRB&JKC-N4-YTX50-GENIS ORAL, Take 2 tablets by mouth two [...] 3.19 11/28/2016 Lab Results Component Value Date [id number] 88.6 05/27/2018 Lab Results Component Value Date [...] weight of 320lbs. Plan to work with fire sprinkler service technician from bariatric surgery, identify etio logy of [...] is currently being managed well by her Medication Nurse with diuretics and mainte nance of her [...] Gissell Clements MD Fellow, Cardiovascular Medicine Pager [phone] signed by Gissell Clements MD at 06/04/2018 [...] Rd | | | | | | [place], [place] | | | | | | [address] | | | | | | [phone] | | | | | | | | +--------+ + + + + | 08/19/ | Surgery | Surgery | Chilo, | OPEN VENTRAL HERNIA | | 2019 | | | MD [address]ond [address] | REPAIR WITH | | | | | [address] | BIOLOGICAL MESH | | | | | [place], [place] | | | | | | [address] | | | | | | [phone] | | | | | | | | +--------+ + + + + | 09/15/ | Office | Cardiology | Randell Franks, | | | 2019 | Visit | | MD [address] | | | | | | Ave [place], [place] | | | | | | [address] | | | | | | [phone] | | | | | | | [...]
--- OUTSIDE RECORDS SUMMARY | ~2019-06-25 | XMS | Encounter Summary ---
Demographics + + + | Address | [address] | | | [place] [address] | + + + | Home Phone [...] [place], [place] | | | | | [address] | | + + + + + | Ellie Vang | ECON | Unknown | | + + + + + Care Team Providers + +------+ + | Care Military Education Coordinator Name | Role | Phone | [...] [facility] [address] | | (Primary Dx) | | | | [address] | | | | | | Mailcode: Center | | | | | | for Health and | | | | | | [facility] 2 | | | | | | [place], [place] | | | | | | [address] | | | | | | [phone] | | | +--------+---------+ + + + [...] of Class: 2:00 until 3:00 (60 minutes ehhr-fu-rqus with patient) OBJECTIVE: Height: Ht Readings from [...] or sharing information. Yes Yuli Childs RD, [facility], LD Pager# [phone] documented in this enc ounter Plan of [...] [place] | | | | | | [address] | | | | | | [phone] | | | | | | | | +--------+ + + + + | 08/19/ | Surgery | Surgery | Chilo, | OPEN VENTRAL HERNIA | | 2019 | | | MD Jorje [address] | REPAIR WITH | | | | | [address] | BIOLOGICAL MESH | | | | | [place], [place] | | | | | | [address] | | | | | | [phone] | | | | | | | | +--------+ + + + + | 09/15/ | Office | Cardiology | Randell Franks, | | | 2019 | Visit | | [address] | | | | | | [place], [place] | | | | | | [address] | | | | | | [phone] | | | | | | | | +--------+ + + + + documented as of this encounter Visit Diagnoses + + | Diagnosis | + + | Morbid obesity (HCC) - Primary Morbid obesity | + + documented in this encounter
--- OUTSIDE RECORDS SUMMARY | ~2019-06-25 | XMS | Encounter Summary ---
Demographics + + + | Address | [address] | | | [place] [address] | + + + | Home Phone [...] [place], [place] | | | | | [address] | | + + + + + | Ellie Vang | ECON | Unknown | | + + + + + Care Team Providers + +------+ + | Care Behavioral Therapy Coordinator Name | Role | Phone | + +------+ + | Kenyatta Cardenas MD | PCP | | + +------+ + Encounter Details +--------+ + + + + | Date | Type | Department | Care Team | Description | +--------+ + + + + | 03/10/ | Pharmacy | [facility] | | | | 2018 | Visit | & [facility] | | | | | | [address] | | | | | | Mailcode: Center | | | | | | [facility] and | | | | | | [facility] 1 | | | | | | [place], [place] | | | | | | [address] | | | | | | [phone] | | | +--------+ + + + [...] Rd | | | | | | [place], [place] | | | | | | [address] | | | | | | [phone] | | | | | | | | +--------+ + + + + | 08/19/ | Surgery | Surgery | Chilo, | OPEN VENTRAL HERNIA | | 2019 | | | MD [address] | REPAIR WITH | | | | | [address] | BIOLOGICAL MESH | | | | | [place], [place] | | | | | | [address] | | | | | | [phone] | | | | | | | | +--------+ + + + + | 09/15/ | Office | Cardiology | Randell Franks, | | | 2019 | Visit | | MD [address] | | | | | | Ave [facility] [place] | | | | | | [address] | | | | | | [phone] | | | | | | | | +--------+ + + + + documented as of this encounter Visit Diagnoses Not on filedocumented in this encounter"
--- OUTSIDE RECORDS SUMMARY | ~2019-06-25 | XMS | Encounter Summary ---
Demographics + + + | Address | [address] | | | [place] [address] | + + + | Home Phone [...] [place], [place] | | | | | [address] | | + + + + + | Ellie Vang | ECON | Unknown | | + + + + + Care Team Providers + +------+ + | Care Flow Specialist Name | Role | Phone | [...] | 2019 | | Preventive at [facility] | MD [address] | (PHENTERMINE 37.5 mg | | | | [address] | [place], [place] | oral tablet); | | | | Mailcode: [place] | [address] | Refill Request | | | | [facility] | [phone] | | | | | and Healing, | | | | | | Building 1 | | | | | | [place], [place] | | | | | | [address] | | | | | | [phone] | | | +--------+--------+ + + + [...] Rd | | | | | | [place], [place] | | | | | | [address] | | | | | | [phone] | | | | | | | | +--------+ + + + + | 08/19/ | Surgery | Surgery | Chilo, | OPEN VENTRAL HERNIA | | 2019 | | | MD [address] | REPAIR WITH | | | | | [address] | BIOLOGICAL MESH | | | | | [place], [place] | | | | | | [address] | | | | | | [phone] | | | | | | | | +--------+ + + + + | 09/15/ | Office | Cardiology | Randell Franks, | | | 2019 | Visit | | MD [address] | | | | | | Ave [place], [place] | | | | | | [address] | | | | | | [phone] | | | | | | | | +--------+ + + + + documented as of this encounter Visit Diagnoses Not on filedocumented in this encounter"
--- OUTSIDE RECORDS SUMMARY | ~2019-06-25 | XMS | Encounter Summary ---
Demographics + + + | Address | [address] | | | [place] [address] | + + + | Home Phone [...] [place], [place] | | | | | [address] | | + + + + + | Ellie Vang | ECON | Unknown | | + + + + + Care Team Providers + +------+ + | Care Credit Control Administrator Name | Role | Phone | + +------+ + | Fadi Goodrich DO | PCP | | + +------+ + Encounter Details +--------+------+ + + + | Date | Type | Department | Care Team | Description | +--------+------+ + + + | 11/20/ | Lab | Laboratory at [facility] | | 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 | | [address] | | BMI of 70 and over, | | | | [place], [place] | | adult ([facility]); | | | | [address] | | 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 ([facility]); | | | | | | Type 2 diabetes | | | | | | mellitus without | | | | | | complication, with | | | | | | long-term current | | | | | | use of insulin ([facility]) | +--------+------+ + + + Social [...] Rd | | | | | | [place], [place] | | | | | | [address] | | | | | | [phone] | | | | | | | | +--------+ + + + + | 08/19/ | Surgery | Surgery | Chilo, | OPEN VENTRAL HERNIA | | 2019 | | | MD [address] | REPAIR WITH | | | | | [address] | BIOLOGICAL MESH | | | | | [place], [place] | | | | | | [address] | | | | | | [phone] | | | | | | | | +--------+ + + + + | 09/15/ | Office | Cardiology | Randell Franks, | | | 2019 | Visit | | MD [address] | | | | | | Ave [place], [place] | | | | | | [address] | | | | | | [phone] | | | | | | | [...] | | |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 ([facility]) [...] | | |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 ([facility]) [...] | | |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 ([facility]) [...] [facility]) | results section. | | AT,GLUC,CA,AST,ALT,B | | | Diabetes mellitus | | | MARGIE TOTAL,ALK | | | type 2 without | | | PHOS,ALB,PROT TOTAL) |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 ([facility]) [...] | | |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 ([facility]) [...] | | |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 ([facility]) [...] SERVICES, | | | | | | [place] [facility] | | | | | | [...] [facility] | [address] | [place] [address] | | | SERVICES, CENTER FOR | [...] [facility] [employer] | [address] | [place], [place] | | | SERVICES, LIPID | [address] | [address] | | + + + + + [...] | [facility] | | considered for monitoring mcc glycemic control in patients with: | LABORATORY [...] [facility] | [address] | [place] [address] | | | SERVICES, SPECIAL | PARK [...] B: | | | | | | Canary Calendar.Plerts/CSPerformed | | | | | | by [employer],[address] | | | | | | Liliana Martinez, [facility],[place] | | | | | | [address] | | | | | | [phone].Canary Calendar. | | | | | | com, [...] [facility] | [address] | [place], [place] | | | UN[facility] | | [address] | | + + + + + [...] [facility] | [address] | [place] [address] | | | LYDIA RANGEL | CLARENCE [...] [facility] | [address] | [place] [address] | | | SERVICES, CORE | CLARENCE [...] [facility] [employer] | [address] | [place] [address] | | | SERVICES, CORE | CLARENCE [...] LABORATORY | [address] | [place] [address] | | | SERVICES, CORE | PARK [...] [facility] | [address] | [place] [address] | | | SERVICES, CORE | PARK [...] NKECHI ALEJANDRA | [address] | [place] [address] | | | SERVICES, LYDIA | CLARENCE [...]
--- OUTSIDE RECORDS SUMMARY | ~2019-06-25 | XMS | Encounter Summary ---
Demographics + + + | Address | [address] | | | [place] [address] | + + + | Home Phone [...] [place], [place] | | | | | [address] | | + + + + + | Ellie Vang | ECON | Unknown | | + + + + + Care Team Providers + +------+ + | Care Therapeutic Recreation Director Name | Role | Phone | [...] | | Surgery | Diagnoses | | [place], | | | | | Ventral | Chilo, | MD Jones | | | | | hernia | MD Jones | [address] | | | | | without | [address] | [address] | | | | | obstruction | [address] | Rd [place], | | | | | or gangrene | Rd | [place] | | | | | Procedures | [place], [place] | [address] | | | | | REQUEST TO | [address] | Phone: | | | | | SURGERY | Phone: | [phone] | | | | | AIR CONDITIONING SHEET METAL INSTALLER | [phone] | Fax: | | | | | | Fax: | [phone] | | | | | | [phone] | | +--------+--------+ + + + + [...] 2019 | Visit | Center at [address] [address] | MD Jones [address] | without obstruction | | | | [address] | [facility] [address] | or gangrene (Primary | | | | Mailcode: Center | [place], [place] | Dx) | | | | for Health and | [address] | | | | | Healing, Building 2 | [phone] | | | | | [place], [place] | | | | | | [address] | | | | | | [phone] | | | +--------+---------+ + + + [...] (1?2 cup) 6.5 Avocado 1?2 fruit 2.1 Beulah sprouts, cooked 125 mL (1?2 cup) 2.0 Figs, dried 60 mL (1?4 cup) 1.9 Arenac 1 medium 1.8 Sweet Potato, cooked, without [...] 1.3 Eggplant 125 mL (1?2 cup) 1.3 Bullitt, with skin 1 medium 1.0-1.3 Peas, green, cooked 125 mL (1?2 cup) 0.8-1.3 Carrot, cooked John 125 mL (1?2 cup) 1?2 fruit 1.1-1.2 0.7-1.1 Grapefruit 1?2 fruit 0.7-1.1 Prunes, dried 3 1.1 Shell Point, with skin 2 fruits 1.1 Apricots, [...] Bread, rye 35 g (1 slice) 0.6-1.0 Crane bread crackers 3 crackers 0.9 Raisin bran [...] of Soluble Fiber [email or web address] PATIENT SURGERY INFORMATION [facility] General Surgery Office Toll-free: ext [phone] Surgery Date: Monday, July 08, [address]: [facility] Procedure: recurrent ventral hernia repair Surgeon Name: Dr. Jones Tiwari DIRECTIONS FOR SURGERY TO PREPARE FOR SURGERY - If you are able, walk every day for at least 30 minutes. - Follow up: Phone pre-operative medicine clinic call to be completed within 30 days [facility]. This call appointment will be scheduled with you by a pipe cleaning machine operator. You will receive a ca [...] ease call the General Surgery Office at [phone] for [id number]. Check-in on the day of surgery is [...] the surgery. Please see the list below, [facility] has a list of products that contain [...] contact our office . Products Containing Aspirin Yuki-Beaufort, Anacin, Anexsia with Codeine, Andynos, Aspirin, Aspirin suppositories, Ascrip tin, Aspergum, Axotal, B-A-C, Baby Aspirin, Lucila, BC Powder, Bexophene, Buffaprin, Bufferin , Buffinol, Cama-Arthritis Strength, Congespirin, Enid, Coricidin, Damason, Darvon, Dristan, Kalani-Gesic, Digel, Dolprin #3 Tablets, Donatab, Doxaphene, Duragesic, Easprin, Ecotrin, Emag rin Forte, Emiprin, Emprazil, Equagesic, Equazine M, Excedrin, Fiogesic, Fiorgen PH, Fiorice t, Fiorinal, 4-Way Cold Tablet, Gemnisyn, Indocin, Liquprin, Lortab ASA, Magnaprin, Marnal, Meprobamate, Midol, Momentum, Norgesic, Hampton, Orphengesic, Pabalate, P-A-C, Percodan, Pre salin, Robaxasil, Roxiprin, Saleto, Salocol, SK-65 Compound, Sine-Aid, Sine-Off, Atascosa, Supac, Talwin Compound, Trigesic, Tolectin, Traiminicin, Vanquish, ZORprin, Zomax Products Containing Ibuprofen Advil, Aleve, Haltran, Medipren, Midol, Motrin, Naproxyn, Nuprin, Rufen Herbal Medications Ephedra: discontinue 24 hours before surgery Garlic: discontinue 7 days prior to surgery Ginkgo: discontinue 36 hours prior to surgery Ginseng: discontinue 7 days prior to surgery Kava: discontinue 24 hours prior to surgery Woodward s Wort: discontinue 5 days prior to surgery Valerian: discontinue several weeks prior to surgery Other Products Which May Promote Bleeding Vitamin E, Gingko Biloba, Marine Fatty Acids, Spofford-3 Fish Oil Supplement PRE-OP BATHING[facility]SHOWER INSTRUCTIONS [facility] Bathe or shower the evening before [...] loss of tissue. Check out the free [place] Quit Line - The Quit Line is open 24 hours a day, seven days a we ek. The Quit Line is a telephone and web-based counseling service to help [place]ians quit us ing tobacco and nicotine products. .QUIT.NOW ( ) or www.quitnow.net/[place] PARKING Parking at the Hospital for patients and visitors is available in the [facility] Parking s tructure located across from the emergency department. Patient parking is available on level 1 and 3. Metered parking is available on the top level. Parking at [facility] is available in the building's parking structure. For additional parking options visit [email or web address]. TRANSPORTATION You will require transportation home on the day of discharge. Pain medications and physical activity restrictions may limit your ability to drive safely. CANCELLING YOUR PROCEDURE Please notify the general surgery office at [phone] as soon as possible should you nee [...] lost 100+ lbs! [facility] 02/2019, at which time [...] plans to see an ENT and a manager drug for her symptoms in the near future. [...] Dr. Andie Brian Incisional hernia repair 03/01/2015 [facility]/ Dr. Cantu. Primary fascial closure and scar excision Lap gastric byp, and nilesh-en-y gastroenterostomy w/ nilesh limb 150 cm or less 8 [facility] Past Medical History: [...] file Gets together: Not on file Attends scientology service: Not on file Active member of club or organization: Not on file Attends meetings of clubs or organizations: Not on file Relationship status: Not on file Other Topics Concern Not on file Social History Narrative Updated 11/09/15 She lives in [place] with her mother and her sister (also her caregiver) lives in an apa rtment/duplex below. She has 2 grandchildren (age 4 and 7) who live with her daughter and son-in-law Her boyfriend lives in [place] HFpEF, DM2, HTN, Sleep Apnea (unable to [...] here and refer her to our consumer electronic retail specialist who also has expertise in physical [...] daily. BELBUCA 600 mcg buccal film CALCIUM CRB&AOR-Y5-ULX18-GENIS ORAL Take 2 tablets by mouth two [...] morbid obesity s/p laparoscopic anteocolic RYGB (03/01/2018); [facility] e this operation, she has lost [...] by Gadiel Yi . JONES TIWARI MD [facility] [address] [facility] Mailcode: [place] [address] I spent 31 minutes [...] Rd | | | | | | [place], [place] | | | | | | [address] | | | | | | [phone] | | | | | | | | +--------+ + + + + | 08/19/ | Surgery | Surgery | Chilo, | OPEN VENTRAL HERNIA | | 2019 | | | MD Jones [address] | REPAIR WITH | | | | | [address] | BIOLOGICAL MESH | | | | | [place], [place] | | | | | | [address] | | | | | | [phone] | | | | | | | | +--------+ + + + + | 09/15/ | Office | Cardiology | Randell Franks, | | | 2019 | Visit | | [address] | | | | | | [place], [place] | | | | | | [address] | | | | | | [phone] | | | | | | | | +--------+ + + + + documented as of this encounter Visit Diagnoses + + | Diagnosis | + + | Ventral hernia without obstruction or gangrene - Primary Ventral hernia, unspecified, | | without mention of obstruction or gangrene | + + documented in this encounter
--- OUTSIDE RECORDS SUMMARY | ~2019-06-25 | XMS | Encounter Summary ---
Demographics + + + | Address | [address] | | | [place] [address] | + + + | Home Phone [...] [place], [place] | | | | | [address] | | + + + + + | Ellie Vang | ECON | Unknown | | + + + + + Care Team Providers + +------+ + | Care Public Health Social Worker Name | Role | Phone [...] | | | without | [place] | [address] | | | | | mention of | | Phone: | | | | | obstruction | | [phone] | | | | | or gangrene | | Fax: | | | | | | | [phone] | +--------+--------+ + + + + Encounter [...] | [facility] [address] | [address] | Hernia | | | | [address] | [place], [place] | | | | | Mailcode: L223A | [address] | | | | | [facility] | [phone] | | | | | [address] [place], [place] | | | | | | [address] | | | | | | [phone] | | | +--------+---------+ + + + [...] are still in, And wound is healed. [place] removed. Drainage is serous, very slight sanguinous. No eviden ce of deep subcutaneous infection. Abdominal wall currently intact. Drain site OK. Assessment/Plan: Satisfactory course following primary repair of incarcerated umbilical he rnia. Pt. Wants to obtain care, including drain removal and diabetic care in [place], so I have referred her to her [...] [place] | | | | | | [address] | | | | | | [phone] | | | | | | | | +--------+ + + + + | 08/19/ | Surgery | Surgery | Chilo, | OPEN VENTRAL HERNIA | | 2019 | | | MD Jorje [address] | REPAIR WITH | | | | | [address] | BIOLOGICAL MESH | | | | | [place], [place] | | | | | | [address] | | | | | | [phone] | | | | | | | | +--------+ + + + + | 09/15/ | Office | Cardiology | Randell Franks, | | | 2019 | Visit | Analisa CARVAJAL [address] | | | | | | [address], [place] | | | | | | [address] | | | | | | [phone] | | | | | | | [...]
--- OUTSIDE RECORDS SUMMARY | ~2019-06-25 | XMS | Encounter Summary ---
Demographics + + + | Address | [address] | | | [place] [address] | + + + | Home Phone [...] + | Katalina Padilla | ECON | [address] | | | | | [place], [place] | | | | | [address] | | + + + + + [...] 2018 | | Preventive at [facility] | [address] | (Phentermine 37.5mg) | | | | [address] | [place], [place] | | | | | Mailcode: [facility] | [address] | | | | | [facility] | [phone] | | | | | and Erick, | | | | | | Building [address] | | | | | | [place], [place] | | | | | | [address] | | | | | | [phone] | | | +--------+ + + + [...] Rd | | | | | | [place] | | | | | | [address] | | | | | | [phone] | | | | | | | | +--------+ + + + + | 08/19/ | Surgery | Surgery | Chilo, | OPEN VENTRAL HERNIA | | 2019 | | | MD [address] | REPAIR WITH | | | | | [address] | BIOLOGICAL MESH | | | | | [place], [place] | | | | | | [address] | | | | | | [phone] | | | | | | | | +--------+ + + + + | 09/15/ | Office | Cardiology | Randell Franks, | | | 2020 | Visit | | MD [address] | | | | | | [place], [place] | | | | | | [address] | | | | | | [phone] | | | | | | | | +--------+ + + + + documented as of this encounter Visit Diagnoses Not on filedocumented in this encounter"
--- OUTSIDE RECORDS SUMMARY | ~2019-06-25 | XMS | Encounter Summary ---
Demographics + + + | Address | [address] | | | [place] [address] | + + + | Home Phone [...] [place], [place] | | | | | [address] | | + + + + + | Ellie Vang | ECON | Unknown | | + + + + + Care Team Providers + +------+ + | Care Welt Insole Channeler Name | Role | Phone [...] UPPER ENDOSCOPY | | 2018 | | [facility] | [address] | | | | | Admitting Desk | [place], [place] | | | | | Located on the | [address] | | | | | floor [address] [facility] | [phone] | | | | | [address] | | | | | | [place], [place] | | | | | | [address] | | | +--------+---------+ + + + [...] the endoscopy department toll free ext. [phone] or After business hours or on weekends and holiday [facility] toll free [phone] ext. [phone] and have the GI doctor communication lecturer paged. The provider who performed your procedure [...] | | 0 | | | | CRB&DNI-D5-ZBZ12-GEN | mouth two times | | | [...] Y gastric bypass Sedation: General anesthesia in [facility] Findings: Normal esophagus Normal appearing gastric pouch [...] 2:35 PM PST PRE PROCEDURE NOTE: MR# [id number] Subjective: Elzbieta Cristina is a 43 y.o. [...] Rd | | | | | | [place], [place] | | | | | | [address] | | | | | | [phone] | | | | | | | | +--------+ + + + + | 08/19/ | Surgery | Surgery | Chilo, | OPEN VENTRAL HERNIA | | 2019 | | | MD [address] | REPAIR WITH | | | | | [address] | BIOLOGICAL MESH | | | | | [place], [place] | | | | | | [address] | | | | | | [phone] | | | | | | | | +--------+ + + + + | 09/15/ | Office | Cardiology | Randell Franks, | | | 2019 | Visit | | [address] | | | | | | [place] [facility] [place] | | | | | | [address] | | | | | | [phone] | | | | | | | [...] -----+ | MRN: | [facility] | | [id number] Date: 06/23/2018Patient Name: Elzbieta Curtis #: | MORGAN Y | | [id number] of : 1975CSN: [id number] Type: | | | AmbulatoryRoom: SORProcedure: Upper GI | | | endoscopyIndications: Nausea with vomiting, Status post | | | Wfhe-fd-YXzybwzsqu: KALEB WILCOX MD (Doctor), JOSE | | | [place] Certified Nursing Assistant Instructor | | | (Certified Nursing Assistant Instructor)Referring MD: DANIELLE GARCÍAPRequestdonya | | | Provider: [...] | | | The Olympus [id number]-[id number] Gastroscope #[id number] was | | | introduced through the [...] endoscope without resistance. The | | | xxrkl-ga-cjnjwnf limb was characterized by healthy appearing | [...] Initiated On: | | | 06/23/2018 3:58 [facility] Letter to: FADI GOODRICH DO | [...] AMES | [address] | [place], [place] | | | [facility] | [facility] | [address] | | | TESTS | | | [...] System 06/24/18 at 0027, | | | | [...] PRN, 1 dose, | | | Starting [facility] 06/23/18 at 1532, | | | [...] | | | 06/23/18 at 1532, Until [facility] | | | | | [...]
--- OUTSIDE RECORDS SUMMARY | ~2019-06-25 | XMS | Encounter Summary ---
Demographics + + + | Address | [address] | | | [place] [address] | + + + | Home Phone [...] Author | [facility] | | | and Jeffana | + + + | Organization | [facility] | | [...] Providers + +------+ + | Care Radar Mechanic Name | Role | Phone | [...] | Services | Disease | Chronic | [facility], | [facility] | | | Required | | diastolic | BIOLOGY LABORATORY ASSISTANT [address] | SLEEP | | | | | heart | PAYAL GASTON | DISORDERS LAB | | | | | failure | DMITRI F | [address] | | | | | (HCC) | [place], [place] | [address] | | | | | History of | [address] | [place], [place] | | | | | sinus | Phone: | [address] | | | | | tachycardia | [phone] | Phone: | | | | | History of | Fax: | [phone] | | | | | bariatric | [phone] | Fax: | | | | | surgery | | [phone] | | | | | Sleep apnea [...] + + | 04/28/ | Office | [facility] | Sulema Altamirano | Chronic diastolic | | 2019 | Visit | CARDIOLOGY [place] | [address] | heart failure (HCC) | | | | [address] | [place] | (Primary Dx); | | | | [address] | [place] [address] | History of sinus | | | | [place] | [phone] | tachycardia; History | | | | [address] | | of stroke; HTN, | | | | [phone] | | goal below 130/80; | | [...] have referred you to Dr. Rascon at [place] [facility] , call [phone] for an appointment next week I made [...] dysfunction with previous dysfunctional RV treated at [facility] with diuresis and hospitalization for one month., sleep apnea treated with BiPAP, t ype II diabetes, hypothyroidism, morbid obesity with alveolar hypoventilation, Frandy-en-Y ga stric bypass surgery 02/2018, osteoarthritis,DVT and PE 2016, hypokalemia and hyperuricemia which is being followed by want ad receiver Dr. Fu, and SELINA Escobar. Her current [...] will be seeing a surgeon a [facility] on May 05. In the meantime [...] surgery, and weight down 123 pounds since [facility] 2017 when weighed 394 lbs. She [...] hypothyroidism,followed by Dr. Franks, endocrin ologist at [facility]) . Denies excessive thirst or hunger. [...] knee pain and hernia pain Lives in [facility] ith her mother who smokes. . Sister is medicare interviewer. Grandchildren ages 4 and 7 live with he r daughter and son-in-law. Disabled , on disability .01/24/2019: working with [employer] to get her own place. Outpatient Medications [...] film Suboxone 2 mg-0.5 mg sublingual film Ymzuvlc-Oaolhvufm-Zldajng D (CITRACAL CALCIUM+D PO) Take 2 tablets [...] Pen Needle (NOVOFINE) 32G X 6 MM [facility] Novofine 32 32 gauge x 1/4" needle [...] monohydrate/macrocrystals 100 m g capsule nystatin (NYSTATIN) 466945 UNIT/GM powder Nyamyc 100,000 unit/gram topical powder [...] Take 30 mg by mouth Daily. thyroid (DERRICK BARGE OPERATOR THYROID) 30 mg tablet DERRICK BARGE OPERATOR Thyroid 30 mg tablet TAKE ONE [...] Left lower extremity DVT, presumed PE: 10/2015 [facility]. treated with heparin drip and Coumadin 10 in hospital, with Coumadin 6 months as outpatient, ASA 81 mg continued Venous US: right leg, 04/28/2016: No evidence of DVT. EKG EKG 10/27: ([facility]) Normal sinus rhythm. Normal EKG. [...] at the [place] [facility] in [place], so I have referred her again to Dr. Rascon at the [place] [facility], and she ne eds [...] Placed This Encounter Procedures Ambulatory Referral to [facility] Pulmonology- Sleep study as well ECG 12 [...] past surgical history. Problem list. Maryse MARKS [facility] Cardiology 04/28/2019 docume nted in this encounter Plan of Treatment + + +--------+ + + | Name | Type | Priori | Associated Diagnoses | Order Schedule | | | | ty | | | + + +--------+ + + | Ambulatory Referral | Outpatient | Routin | Chronic diastolic | Ordered: 04/28/2019 | | to [facility] | Referral | e | heart failure [...] of insulin ([facility]) | | + + +--------+ [...] | | | | | by [facility] Read Only, | | | | | | [facility] ([id number]), | | | | | | escalator mechanic [place]to | | | | | [...]
--- OUTSIDE RECORDS SUMMARY | ~2019-06-25 | XMS | Encounter Summary ---
Demographics + + + | Address | [address] | | | [place] [address] | + + + | Home Phone [...] [place], [place] | | | | | [address] | | + + + + + | Ellie Vang | ECON | Unknown | | + + + + + Care Team Providers + +------+ + | Care Md Allergy Immunology Name | Role | Phone | + [...] Hospital | | | | | | [facility], | [place], [place] | | | | | | Building [address] | [address] | | | | | | [place], [place] | Phone: | | | | | | [address] | [phone] | | | | | | Phone: | Fax: | | | | | | [phone] | [phone] | | | | | | Fax: | | | | | | | [phone] | | +--------+--------+ + + + + [...] | | | without | SURGICAL | [facility] | | | | | mention of | CLINIC [address] [place], | | | | | obstruction | [address] | [place] | | | | | or gangrene | AVE | [address] | | | | | | [place], | Phone: | | | | | | [place] [address] | [phone] | | | | | | Phone: | Fax: | | | | | | [phone] | [phone] | | | | | | Fax: | | | | | | | [phone] | | +--------+--------+ + + + + [...] [place], [place] | | | | | [facility] and | [address] | | | | | [facility], [facility] | [phone] | | | | | [place], [place] | | | | | | [address] | | | | | | [phone] | | | +--------+---------+ + + + [...] colonoscopy), but a referral to her [facility] mentioned this was probably an incisional [...] Optimally will need coordination for [facility] Medicaid & [facility] Bariatric program for wt loss. 3. No [...] material. 4. Continue to meet with her Identification Clerk in the outpatient setting for diet and [...] has been instructed to f/u w/ her sericulturist for a strict diet of <1000 kcal/d [...] teaching. Howie Faria MD MIS/Bariatric Fellow, Pager [phone] [facility] Attending provider: Hernandez Brian MD [...] Rd | | | | | | [place], [place] | | | | | | [address] | | | | | | [phone] | | | | | | | | +--------+ + + + + | 08/19/ | Surgery | Surgery | Chilo, | OPEN VENTRAL HERNIA | | 2019 | | | MD [address] Recinos | REPAIR WITH | | | | | [address] | BIOLOGICAL MESH | | | | | [place], [place] | | | | | | [address] | | | | | | [phone] | | | | | | | | +--------+ + + + + | 09/15/ | Office | Cardiology | Randell Franks, | | | 2019 | Visit | | [address] | | | | | | [place], [place] | | | | | | [address] | | | | | | [phone] | | | | | | | [...]
--- OUTSIDE RECORDS SUMMARY | ~2019-06-25 | XMS | Encounter Summary ---
Demographics + + + | Address | [address] | | | [place] [address] | + + + | Home Phone [...] [place], [place] | | | | | [address] | | + + + + + | Ellie Vang | ECON | Unknown | | + + + + + Care Team Providers + +------+ + | Care Eyeglass Lens Grinder Name | Role | Phone | + +------+ + | Fadi Goodrich DO | PCP | | + +------+ + Encounter Details +--------+ + + + + | Date | Type | Department | Care Team | Description | +--------+ + + + + | 02/13/ | Abstract | Cardiology | Randell Franks, | | | 2015 | | Preventive at [facility] | MD [address] | | | | | [address] | Ave [place], [place] | | | | | Mailcode: [facility] | [address] | | | | | [facility] | [phone] | | | | | and Healing, | | | | | | Building [address] | | | | | | [place], [place] | | | | | | [address] | | | | | | [phone] | | | +--------+ + + + [...] Rd | | | | | | [place], [place] | | | | | | [address] | | | | | | [phone] | | | | | | | | +--------+ + + + + | 08/19/ | Surgery | Surgery | Chilo, | OPEN VENTRAL HERNIA | | 2019 | | | MD J[address] | REPAIR WITH | | | | | [address] | BIOLOGICAL MESH | | | | | [place], [place] | | | | | | [address] | | | | | | [phone] | | | | | | | | +--------+ + + + + | 09/15/ | Office | Cardiology | Randell Franks, | | | 2019 | Visit | | [address] | | | | | | Ave [place], [place] | | | | | | [address] | | | | | | [phone] | | | | | | | | +--------+ + + + + documented as of this encounter Visit Diagnoses Not on filedocumented in this encounter"
--- OUTSIDE RECORDS SUMMARY | ~2019-06-25 | XMS | Encounter Summary ---
Demographics + + + | Address | [address] | | | [place] [address] | + + + | Home Phone [...] [place], [place] | | | | | [address] | | + + + + + | Ellie Vang | ECON | Unknown | | + + + + + Care Team Providers + +------+ + | Care Electrical Instrumentation Technician Name | Role | Phone | [...] | | [address] | Ave [place], [place] | | | | | Mailcode: [place] | [address] | | | | | for Health and | [phone] | | | | | [facility] 2 | | | | | | [facility] [place] | | | | | | [address] | | | | | | | [...] Rd | | | | | | [place], [place] | | | | | | [address] | | | | | | [phone] | | | | | | | | +--------+ + + + + | 08/19/ | Surgery | Surgery | Chilo, | OPEN VENTRAL HERNIA | | 2019 | | | MD Jorje [address] | REPAIR WITH | | | | | [address] | BIOLOGICAL MESH | | | | | [place], [place] | | | | | | [address] | | | | | | [phone] | | | | | | | | +--------+ + + + + | 09/15/ | Office | Cardiology | Randell Franks, | | | 2019 | Visit | | [address] | | | | | | [place], [place] | | | | | | [address] | | | | | | [phone] | | | | | | | | +--------+ + + + + documented as of this encounter Visit Diagnoses Not on filedocumented in this encounter"
--- OUTSIDE RECORDS SUMMARY | ~2019-06-25 | XMS | Encounter Summary ---
Demographics + + + | Address | [address] | | | [place] [address] | + + + | Home Phone [...] | Author | [facility] | | | and Jeffana | + + + | Organization | [facility] | [...] Providers + +------+ + | Care Back Up Worker Name | Role | Phone | + +------+ + | Jorje Hill | PCP | | + +------+ + Encounter Details +--------+ + + + + | Date | Type | Department | Care Team | Description | +--------+ + + + + | 06/20/ | Hospital | [facility] | Dharmesh Melchor | Canceled (OTHER) | | 2019 | Encounter | CENTER IR INTRA OP | MD [address] | | | | | [address] | [address] | | | | | [place], [place] | [place] [address] | | | | | [address] | [phone] | | | | | [phone] | | | | | | | Christian Dawson MD | | | | | | [address] | | | | | | [place], [place] | | | | | | [address] | | | | | | | [...] + + | Performing | Address | City/State/Inscription House Health Centercode | Phone Number | | Organization | | | | + +---------+ + + | [facility] | | | | + +---------+ + + documented in this encounter Visit Diagnoses Not on filedocumented in this encounter"
--- OUTSIDE RECORDS SUMMARY | ~2019-06-25 | XMS | Encounter Summary ---
Demographics + + + | Address | [address] | | | [place] [address] | + + + | Home Phone [...] | Author | [facility] | | | and Jeffana | + + + | Organization | [facility] | | | and Jeffana | + + + | Address | Unknown | + + + | Phone | Unavailable | + + + Support + + +---------+ + | Name | Relationship | Address | Phone | + + +---------+ + | Katalina Pdailla | ECON | Unknown | Unavailable | + + +---------+ + | Ellie Barnett | ECON | Unknown | | + + +---------+ + Care Team Providers + +------+ + | Care Poultry Grader Name | Role | Phone | + +------+ + PCP | Unavailable | + +------+ + Encounter Details +--------+ + + + + | Date | Type | Department | Care Team | Description | +--------+ + + + + | 12/13/ | Hospital | [facility] | Erich Wells | | | 2003 | Encounter | MED CTR SLEEP | MD Michael [address] | | | | | [place] [address] | [address] [place] | | | | | [place], [place] | [place] [address] | | | | | [address] | [phone] | | | | | [phone] | | | +--------+ + + + [...]
--- OUTSIDE RECORDS SUMMARY | ~2019-06-25 | XMS | Encounter Summary ---
Demographics + + + | Address | [address] | | | [place] [address] | + + + | Home Phone [...] [place], [place] | | | | | [address] | | + + + + + | Ellie Vang | ECON | Unknown | | + + + + + Care Team Providers + +------+ + | Care Agricultural Loan Officer Name | Role | Phone | [...] | [facility] | | | with WIRE STITCHER MACHINE | | hypertension | [address] | [address] | | | | | Right | [address] | [address] | | | | | heart | [place], [place] | Mailcode: | | | | | failure | [address] | Center for | | | | | ([facility]) Type | Phone: | Health and | | | | | 2 diabetes | [phone] | Healing, | | | | | mellitus | Fax: | Building 2 | | | | | without | [phone] | [place], [place] | | | | | complication | | [address] | | | | | , with | | Phone: | | | | | long-term | | | | | | | current use | | Fax: | | | | | of insulin | | [phone] | | | | | ([facility]) | | | | | | [...] | | 2 diabetes | JEAN, | [place], [place] | | | | | mellitus | [place] [address] | [address] | | | | | without | Phone: | Phone: | | | | | complication | [phone] | [phone] | | | | | (HCC) | Fax: | Fax: | | | | | Procedures | [phone] | [phone] | | | | | [place] EST | | | | | | [...] | 2017 | Visit | Preventive at [facility] | [address] | hypertension | | | | [address] | Ave [place], [place] | (Primary Dx); Right | | | | Mailcode: [facility] | [address] | heart failure (HCC); | | | | [facility] | [phone] | Type 2 diabetes | | | | and Healing, | | mellitus without | | | | [address] | | complication, with | | | | [place], [place] | | long-term current | | | | [address] | | use of insulin (HCC) | | | | [phone] | | | +--------+---------+ + + + [...] 81 mg by mouth once daily. CALCIUM CRB&HEW-T2-JCV21-GENIS ORAL Take 2 tablets by mouth two [...] then she has worked closely with her [facility] doctor and has been been able [...] 12 CREATININE PLASMA (LAB) 0.79 EGFR - PALAUAN >60 EGFR NON -PALAUAN >60 GLUCOSE, PLASMA (LAB) 170 (H) CALCIUM, [...] Rd | | | | | | [place], [place] | | | | | | [address] | | | | | | [phone] | | | | | | | [...] [place] | | | | | | [address] | | | | | | [phone] | | | | | | | | +--------+ + + + + | 09/15/ | Office | Cardiology | Randell Franks, | | | 2019 | Visit | Analisa CARVAJAL [address] | | | | | | Ave [place], [place] | | | | | | [address] | | | | | | [phone] | | | | | | | [...] + + + + + | [facility] | [address] | [place] [address] | | | LYDIA RANGEL | CLARENCE [...] [facility] | [address] | [place], [place] | | | SERVICES, LIPID | [address] | [address] | | + + + + + [...] glycated albumin should be considered for monitoring bed bug exterminator | LABORATORY | | glycemic control in [...] [facility] | [address] | [place] [address] | | | SERVICES, SPECIAL | [address] [...] [facility]ERT[facility] | [address] | [place] [address] | | | SERVICES, CORE | [address]ARK [...]
--- OUTSIDE RECORDS SUMMARY | ~2019-06-25 | XMS | Encounter Summary ---
Demographics + + + | Address | [address] | | | [place] [address] | + + + | Home Phone [...] [place], [place] | | | | | [address] | | + + + + + | Ellie Vang | ECON | Unknown | | + + + + + Care Team Providers + +------+ + | Care Vehicle Check In Clerk Name | Role | Phone | [...] [address] | | | | | ([facility]) | [address] | [address] | | | | | Procedures | [place], [place] | [place], [place] | | | | | CONSULT TO | [address] | [address] | | | | | CAR | Phone: | Phone: | | | | | PREVENTATIVE | [phone] | [phone] | | | | | [facility] - | Fax: | Fax: | | | | | LIPIDS | [phone] | [phone] | +--------+--------+ + + + + Reason [...] | | 2 diabetes | [place], | [place], [place] | | | | | mellitus | [place] [address] | [address] | | | | | without | Phone: | Phone: | | | | | complication | [phone] | [phone] | | | | | (HCC) | Fax: | Fax: | | | | | Procedures | [phone] | [phone] | | | | | [place] EST [...] | 2017 | Visit | Preventive at [facility] | [address] | hypertension | | | | [address] | Ave [facility] [place] | (Primary Dx); Right | | | | Mailcode: [facility] | [address] | heart failure (HCC) | | | | [facility] | [phone] | | | | | and Healing, | | | | | | [address] | | | | | | [place], [place] | | | | | | [address] | | | | | | [phone] | | | +--------+---------+ + + + [...] 1 tablet by mouth once daily CALCIUM CRB&DRG-R3-NCX40-GENIS ORAL Take 2 tablets by mouth two [...] Rd | | | | | | [place], [place] | | | | | | [address] | | | | | | [phone] | | | | | | | [...] [place] | | | | | | [address] | | | | | | [phone] | | | | | | | | +--------+ + + + + | 09/15/ | Office | Cardiology | Randell Franks, | | | 2019 | Visit | | [address] | | | | | | Ave [place], [place] | | | | | | [address] | | | | | | [phone] | | | | | | | | +--------+ + + + + documented as of this encounter Visit Diagnoses + + | Diagnosis | + + | Essential hypertension - Primary | + + | Right heart failure (HCC) Congestive heart failure, unspecified | + + documented in this encounter
--- OUTSIDE RECORDS SUMMARY | ~2019-06-25 | XMS | Encounter Summary ---
Demographics + + + | Address | [address] | | | [place] [address] | + + + | Home Phone [...] | Author | [facility] | | | and Jeffana | + + + | Organization | [facility] | [...] Team Providers + +------+ + | Care Anvil Seating Press Operator Name | Role | Phone | + +------+ + | Jorje Hill | PCP | | + +------+ + Encounter Details +--------+ + + + + | Date | Type | Department | Care Team | Description | +--------+ + + + + | 06/17/ | Telephone | [facility] | Christian Dawson A, | | | 2019 | | CENTER CV INTRA OP | [address] | | | | | [address] | [address] | | | | | [place], [place] | [place] [address] | | | | | [address] | [phone] | | | | | [phone] | | | +--------+ + + + [...]
--- OUTSIDE RECORDS SUMMARY | ~2019-06-25 | XMS | Encounter Summary ---
Demographics + + + | Address | [address] | | | [place] [address] | + + + | Home Phone [...] [place], [place] | | | | | [address] | | + + + + + | Ellie Vang | ECON | Unknown | | + + + + + Care Team Providers + +------+ + | Care Header Operator Name | Role | Phone | [...] Morbid | | 2018 | Visit | [facility] [address] | [address] | obesity ([facility]), BMI | | | | [address] | [address] | [address] (Primary Dx); | | | | Mailcode: [facility] | [place], [place] | Type 2 diabetes | | | | [facility] [employer] and | [address] | mellitus without | | | | Healing, [address] | | complication, with | | | | [place], [place] | | long-term current | | | | [address] | | use of insulin | | | | [phone] | | ([facility]); S/P gastric | | | [...] Follow-Up Patient referred by: [place] [address] Documented time of visit: 1:30 to 2:00 (30 minutes dpkr-rd-rsls with patient) Surgery: Gastric Bypass Date of [...] multivitamin & mineral (with iron) supplement, 2/day -9947-6295 mg calcium citrate with vitamin D/day (take [...] in [address],[place] Pager# [phone] Phone: [phone] documented in this en counter Plan of [...] [place] | | | | | | [address] | | | | | | [phone] | | | | | | | | +--------+ + + + + | 08/19/ | Surgery | Surgery | Chilo | OPEN VENTRAL HERNIA | | 2019 | | | MD [address] | REPAIR WITH | | | | | [address] | BIOLOGICAL MESH | | | | | [place] | | | | | | [address] | | | | | | [phone] | | | | | | | | +--------+ + + + + | 09/15/ | Office | Cardiology | Randell Franks, | | | 2020 | Visit | | [address] | | | | | | [place], [place] | | | | | | [address] | | | | | | [phone] | | | | | | | | +--------+ + + + + documented as of this encounter Procedures + +--------+ + + + | Procedure Name | Priori | Date/Time | Associated Diagnosis | Comments | | | ty | | | | + +--------+ + + + | CO MNT RE-ASSESSMNT | Routin | 03/10/2018 | [...]
--- OUTSIDE RECORDS SUMMARY | ~2019-06-25 | XMS | Encounter Summary ---
Demographics + + + | Address | [address] | | | [place] [address] | + + + | Home Phone [...] [place], [place] | | | | | [address] | | + + + + + | Ellie Vang | ECON | Unknown | | + + + + + Care Team Providers + +------+ + | Care Knitted Goods Shaper Name | Role | Phone | [...] | Preventive at [facility] | MD [address] | | | | | [address] | [place], [place] | | | | | Mailcode: [facility] | [address] | | | | | [facility] | [phone] | | | | | and [address] | | | | | | Building [address] | | | | | | [place], [place] | | | | | | [address] | | | | | | [phone] | | | +--------+ + + + [...] [place] | | | | | | [address] | | | | | | [phone] | | | | | | | | +--------+ + + + + | 08/19/ | Surgery | Surgery | Chilo | OPEN VENTRAL HERNIA | | 2019 | | | MD [address] | REPAIR WITH | | | | | [address] | BIOLOGICAL MESH | | | | | [place], [place] | | | | | | [address] | | | | | | [phone] | | | | | | | | +--------+ + + + + | 09/15/ | Office | Cardiology | Randell Franks, | | | 2019 | Visit | | MD [address] | | | | | | [place], [place] | | | | | | [address] | | | | | | [phone] | | | | | | | | +--------+ + + + + documented as of this encounter Visit Diagnoses Not on filedocumented in this encounter"
--- OUTSIDE RECORDS SUMMARY | ~2019-06-25 | XMS | Encounter Summary ---
Demographics + + + | Address | [address] | | | [place] [address] | + + + | Home Phone [...] [place], [place] | | | | | [address] | | + + + + + | Ellie Vang | ECON | Unknown | | + + + + + Care Team Providers + +------+ + | Care Concrete Pouring Supervisor Name | Role | Phone | [...] Center | | | | | | [place], [place] | | | | | | [address] | | | | | | [phone] | | | +--------+ + + + [...] [place] | | | | | | [address] | | | | | | [phone] | | | | | | | | +--------+ + + + + | 08/19/ | Surgery | Surgery | Chilo, | OPEN VENTRAL HERNIA | | 2019 | | | MD Jorje [address] | REPAIR WITH | | | | | [address] | BIOLOGICAL MESH | | | | | [place], [place] | | | | | | [address] | | | | | | [phone] | | | | | | | | +--------+ + + + + | 09/15/ | Office | Cardiology | Randell Franks, | | | 2019 | Visit | | [address] | | | | | | [address] [place], [place] | | | | | | [address] | | | | | | [phone] | | | | | | | | +--------+ + + + + documented as of this encounter Visit Diagnoses Not on filedocumented in this encounter"
--- OUTSIDE RECORDS SUMMARY | ~2019-06-25 | XMS | Encounter Summary ---
Demographics + + + | Address | [address] | | | [place] [address] | + + + | Home Phone [...] [place], [place] | | | | | [address] | | + + + + + | Ellie Vang | ECON | Unknown | | + + + + + Care Team Providers + +------+ + | Care Bottom Liner Name | Role | Phone | [...] | | | | | | | [place], [place] | | | | | | | [address] | | | | | | | Phone: | | | | | | | [phone] | | | | | | | Fax: | | | | | | | [phone] | +--------+--------+ + + + + Encounter [...] | | [address] | [facility] [place] | Dx) | | | | Mailcode: L223A | [address] | | | | | [facility] | [phone] | | | | | [address] [facility] [place] | | | | | | [address] | | | | | | [phone] | | | +--------+---------+ + + + [...] 11/05/2015 2:09 PM PDT [facility] Department of Surgery EGS/TRAUMA Surgery Clinic Note [...] 500 mg by mouth once daily. CALCIUM CRB&ECC-A1-ASN72-GENIS ORAL Take 1 tablet by mouth two [...] were answered. Christian Rocha MD MPH FACS [facility] quill cleaning machine operator Trauma, Critical Care & Acute Care Surgery [facility] [place] [phone] documented in thi s encounter Plan of [...] Rd | | | | | | [place], [place] | | | | | | [address] | | | | | | [phone] | | | | | | | | +--------+ + + + + | 08/19/ | Surgery | Surgery | Chilo, | OPEN VENTRAL HERNIA | | 2019 | | | MD [address] | REPAIR WITH | | | | | [address] | BIOLOGICAL MESH | | | | | [place], [place] | | | | | | [address] | | | | | | [phone] | | | | | | | | +--------+ + + + + | 09/15/ | Office | Cardiology | Randell Franks, | | | 2019 | Visit | | MD [address] | | | | | | Ave [place], [place] | | | | | | [address] | | | | | | [phone] | | | | | | | | +--------+ + + + + documented as of this encounter Visit Diagnoses + + | Diagnosis | + + | Ventral hernia without obstruction or gangrene - Primary Ventral hernia, unspecified, | | without mention of obstruction or gangrene | + + documented in this encounter"
--- OUTSIDE RECORDS SUMMARY | ~2019-06-25 | XMS | Encounter Summary ---
Demographics + + + | Address | [address] | | | [place] [address] | + + + | Home Phone [...] [place], [place] | | | | | [address] | | + + + + + | Ellie Vang | ECON | Unknown | | + + + + + Care Team Providers + +------+ + | Care Deicer Finisher Name | Role | Phone | [...] Hospital | | | | | | [facility], | [place], [place] | | | | | | Building [address] | [address] | | | | | | [place], [place] | Phone: | | | | | | [address] | [phone] | | | | | | Phone: | Fax: | | | | | | [phone] | [phone] | | | | | | Fax: | | | | | | | [phone] | | +--------+--------+ + + + + [...] | | | without | SURGICAL | [facility] | | | | | mention of | CLINIC [address] [place], | | | | | obstruction | [address] | [place] | | | | | or gangrene | AVE | [address] | | | | | | [place], | Phone: | | | | | | [place] [address] | [phone] | | | | | | Phone: | Fax: | | | | | | [phone] | [phone] | | | | | | Fax: | | | | | | | [phone] | | +--------+--------+ + + + + [...] | | | | Mailcode: Center | [place], [place] | | | | | [facility] and | [address] | | | | | [facility], [facility] 2 | [phone] | | | | | [place], [place] | | | | | | [address] | | | | | | [phone] | | | +--------+---------+ + + + [...] colonoscopy), but a referral to [facility] mentioned this was probably [...] issues. 2. Optimally will need coordination for [facility] Medicaid & [facility] Bariatric program for wt loss. 3. [...] material. 4. Continue to meet with her Knocker Out in the outpatient setting for diet and [...] has been instructed to f/u w/ her section crews activities clerk for a strict diet of <1000 kcal/d [...] teaching. Howie Faria MD MIS/Bariatric Fellow, Pager 45[address] [facility] Attending provider: Hernandez Brian MD documented in [...] Rd | | | | | | [place], [place] | | | | | | [address] | | | | | | [phone] | | | | | | | | +--------+ + + + + | 08/19/ | Surgery | Surgery | Chilo, | OPEN VENTRAL HERNIA | | 2019 | | | MD [address] | REPAIR WITH | | | | | [address] | BIOLOGICAL MESH | | | | | [place], [place] | | | | | | [address] | | | | | | [phone] | | | | | | | | +--------+ + + + + | 09/15/ | Office | Cardiology | Randell Franks, | | | 2019 | Visit | | [address] | | | | | | [place], [place] | | | | | | [address] | | | | | | [phone] | | | | | | | [...]
--- OUTSIDE RECORDS SUMMARY | ~2019-06-25 | XMS | Encounter Summary ---
Demographics + + + | Address | [address] | | | [place] [address] | + + + | Home Phone [...] + | Author | [facility] Hernandez | | | and [place] | + + + | Organization | [facility] Hernandez [...] Providers + +------+ + | Care Portable Router Operator Name | Role | Phone | + +------+ + PCP | Unavailable | + +------+ + Encounter Details +--------+ + + + + | Date | Type | Department | Care Team | Description | +--------+ + + + + | 10/07/ | Orders Only | [facility] | Conversion | | | 2018 | | NEPHROLOGY JESUS | Transaction, | | | | | [address] | Provider Unknown | | | | | [address] [place] [address] | | | | | | [address] | (Fax) | | | | | [phone] | | | +--------+ + + + [...]
--- OUTSIDE RECORDS SUMMARY | ~2019-06-25 | XMS | Encounter Summary ---
Demographics + + + | Address | [address] | | | [place] [address] | + + + | Home Phone [...] [place], [place] | | | | | [address] | | + + + + + | Ellie Vang | ECON | Unknown | | + + + + + Care Team Providers + +------+ + | Care Supervisor Photostat Name | Role | Phone | + [...] | [place] Mailcode: CH4S | [facility] | | | | | [facility] | [place], [place] | | | | | and Healing, | [address] | | | | | [place] [address] [facility] | [phone] | | | | | Floor [place], [place] | | | | | | [address] | | | | | | [phone] | | | +--------+ + + + [...] [place] | | | | | | [address] | | | | | | [phone] | | | | | | | | +--------+ + + + + | 08/19/ | Surgery | Surgery | Chilo, | OPEN VENTRAL HERNIA | | 2019 | | | MD Jorje [address] | REPAIR WITH | | | | | [address] | BIOLOGICAL MESH | | | | | [place], [place] | | | | | | [address] | | | | | | [phone] | | | | | | | | +--------+ + + + + | 09/15/ | Office | Cardiology | Randell Franks, | | | 2019 | Visit | | MD [address] | | | | | | Ave [place], [place] | | | | | | [address] | | | | | | [phone] | | | | | | | | +--------+ + + + + documented as of this encounter Visit Diagnoses Not on filedocumented in this encounter"
--- OUTSIDE RECORDS SUMMARY | ~2019-06-25 | XMS | Encounter Summary ---
Demographics + + + | Address | [address] | | | [place] [address] | + + + | Home Phone [...] [place], [place] | | | | | [address] | | + + + + + | Ellie Vang | ECON | Unknown | | + + + + + Care Team Providers + +------+ + | Care Industrial Cleaner Name | Role | Phone | + +------+ + | Fadi Goodrich DO | PCP | | + +------+ + Encounter Details +--------+ + + + + | Date | Type | Department | Care Team | Description | +--------+ + + + + | 02/13/ | Abstract | Cardiology | Randell Franks, | | | 2015 | | Preventive at [facility] | MD [address] | | | | | [address] | Ave [place], [place] | | | | | Mailcode: [facility] | [address] | | | | | [facility] | [phone] | | | | | and Healing, | | | | | | Building [address] | | | | | | [place], [place] | | | | | | [address] | | | | | | [phone] | | | +--------+ + + + [...] [place] | | | | | | [address] | | | | | | [phone] | | | | | | | | +--------+ + + + + | 08/19/ | Surgery | Surgery | Chilo, | OPEN VENTRAL HERNIA | | 2019 | | | MD Jorje [address] | REPAIR WITH | | | | | [address] | BIOLOGICAL MESH | | | | | [place], [place] | | | | | | [address] | | | | | | [phone] | | | | | | | | +--------+ + + + + | 09/15/ | Office | Cardiology | Randell Franks, | | | 2019 | Visit | | MD [address] | | | | | | Ave [place], [place] | | | | | | [address] | | | | | | [phone] | | | | | | | | +--------+ + + + + documented as of this encounter Visit Diagnoses Not on filedocumented in this encounter"
--- OUTSIDE RECORDS SUMMARY | ~2019-06-25 | XMS | Encounter Summary ---
Demographics + + + | Address | [address] | | | [place] [address] | + + + | Home Phone [...] [place], [place] | | | | | [address] | | + + + + + | Ellie Vang | ECON | Unknown | | + + + + + Care Team Providers + +------+ + | Care Net Front End Developer Name | Role | Phone | [...] | LAPAROSCOPIC | | 2013 | | [facility] | [address] | CHOLECYSTECOMY WITH | | | | Admitting Desk | Clarence Bonner [place], | INTRA-OP | | | | Located on the | [place] [address] | CHOLANGIOGRAM | | | | floor [address] | [phone] | | | | | [address] | | | | | | [place], [place] | | | | | | [address] | | | +--------+---------+ + + + [...] resident s note. PRADIP STARR MD [facility] [address] [employer] [facility] [place] [address] orrest, Maryam Yu MD - 1:05 PM PDT [facility] DEPARTMENT OF SURGERY EMERGENCY GENERAL SURGERY Division [...] presented to the [facility] ED ([place], [place]) on 02/06/14, with a week hi story of RUQ abdominal pain that radiates to her back. There, she was found to have leukocyt osis and multiple tiny, mobile stones, + sonographic Peterson's sign on abdominal ultrasound, concerning for acute cholecystitis. She was givenIV antibiotics (cipro, flagyl) and pain med s, then transferred to [facility] by [facility] for further care. Ms. Romero endorsed [...] up in 2-4 weeks ) Contact information [address] [facility] Mailcode: L223a [facility] [place] [address] Thank you for [...] resident s note. PRADIP STARR MD [facility] [address] [place] [address] orrest, Maryam Yu MD - 5:17 AM PDT [facility] [place] DEPARTMENT OF SURGERY EMERGENCY GENERAL SURGERY [...] tolerated MARYAM RHODES MD PGY-1, General Surgery 065[address] pager number [facility] [place] A [address] [place] [facility] [place] [address] documented in this encoun ter Plan of [...] Rd | | | | | | [place], [place] | | | | | | [address] | | | | | | [phone] | | | | | | | | +--------+ + + + + | 08/19/ | Surgery | Surgery | Chilo, | OPEN VENTRAL HERNIA | | 2019 | | | MD Jorje [address] | REPAIR WITH | | | | | [address] | BIOLOGICAL MESH | | | | | [place], [place] | | | | | | [address] | | | | | | [phone] | | | | | | | | +--------+ + + + + | 09/15/ | Office | Cardiology | Randell Franks, | | | 2019 | Visit | Analisa CARVAJAL [address] | | | | | | [place], [place] | | | | | | [address] | | | | | | [phone] | | | | | | | [...] AMES | [address] | [place], [place] | | | JUSTINE DAWN OF JAKY | [address] | [address] | | | TESTS | | | [...] YAKOVAM | [address] | [place], [place] | | | JUSTINE DAWN OF [place]AKY | [facility] | [address] | | | TESTS | | | [...] | 60 - 99 mg/dL | [facility] - | | | GLUCOSE, | [...] AMES | [address] | [place], [place] | | | [facility] POINT OF CARE | [address] | [address] | | | TESTS | | | [...] KWAKU | [address] | [place], [place] | | | JUSTINE DAWN OF JAKY | [address] | [address] | | | TESTS | | | [...] [facility] | [address] | [place] [address] | | | SERVICES, | [address] [...] | + + + + + | [employer] | [address] | [place] [address] | | | SERVICES, | [address] [...] MARQUAM | [address] | [place], [place] | | | JUSTINE DAWN OF CARE | [address] | [address] | | | TESTS | | | [...] [facility] | [address] | [place] [address] | | | SERVICES, CORE | [address] [...] [facility] | [address] | [place] [address] | | | SERVICES, CORE | [address] [...] [facility] | [address] | [place] [address] | | | SERVICES, CORE | P[address] [...] | [facility] | [address] [facility] | [place] [address] | | | SERVICES, LYDIA | [address] [...] | [facility] | [address] | [place] [address] | | | SERVICES, CORE | [address] [...] KWAKU | [address] | [place], [place] | | | JUSTINE DAWN OF JAKY | [facility] | [address] | | | TESTS | | | [...] pattern. | | | | | | Performance Specialist | | | | | | [...] + + + + | [facility] | [address] | [place] [address] | | | PATHOLOGY | [address] [...]
--- OUTSIDE RECORDS SUMMARY | ~2019-06-25 | XMS | Encounter Summary ---
Demographics + + + | Address | [address] | | | [place] [address] | + + + | Home Phone [...] [place], [place] | | | | | [address] | | + + + + + | Ellie Vang | ECON | Unknown | | + + + + + Care Team Providers + +------+ + | Care Internet Marketing Assistant Name | Role | Phone | [...] | | | 2012 | Event | [facility] | [place] | | | | | Admitting Desk | | | | | | Located on the 9th | | | | | | floor [address] | | | | | | [address] | | | | | | [place], [place] | | | | | | [address] | | | +--------+ + + + [...] | D - | Francisca; JOSEFINA | Alejandrnia Bradley RN | Glendy Fonseca RN | [...] Rd | | | | | | [place], [place] | | | | | | [address] | | | | | | [phone] | | | | | | | | +--------+ + + + + | 08/19/ | Surgery | Surgery | Chilo, | OPEN VENTRAL HERNIA | | 2019 | | | MD Jorje [address] | REPAIR WITH | | | | | [address] | BIOLOGICAL MESH | | | | | [place], [place] | | | | | | [address] | | | | | | [phone] | | | | | | | | +--------+ + + + + | 09/15/ | Office | Cardiology | Randell Franks, | | | 2019 | Visit | | [address] | | | | | | Ave [place], [place] | | | | | | [address] | | | | | | [phone] | | | | | | | [...]
--- OUTSIDE RECORDS SUMMARY | ~2019-06-25 | XMS | Encounter Summary ---
Demographics + + + | Address | [address] | | | [place] [address] | + + + | Home Phone [...] [place], [place] | | | | | [address] | | + + + + + | Ellie Vang | ECON | Unknown | | + + + + + Care Team Providers + +------+ + | Care Hand Router Operator Name | Role | Phone [...] | | | | | | [place] [address] | | | | | | [phone] | | | +--------+ + + + [...] Rd | | | | | | [place], [place] | | | | | | [address] | | | | | | [phone] | | | | | | | | +--------+ + + + + | 08/19/ | Surgery | Surgery | Chilo, | OPEN VENTRAL HERNIA | | 2019 | | | MD Jorje [address] | REPAIR WITH | | | | | [address] | BIOLOGICAL MESH | | | | | [place], [place] | | | | | | [address] | | | | | | [phone] | | | | | | | | +--------+ + + + + | 09/15/ | Office | Cardiology | Randell Franks, | | | 2019 | Visit | | MD [address] | | | | | | [place], [place] | | | | | | [address] | | | | | | [phone] | | | | | | | | +--------+ + + + + documented as of this encounter Visit Diagnoses Not on filedocumented in this encounter"
--- OUTSIDE RECORDS SUMMARY | ~2019-06-25 | XMS | Encounter Summary ---
Demographics + + + | Address | [address] | | | [place] [address] | + + + | Home Phone [...] [place], [place] | | | | | [address] | | + + + + + | Ellie Vang | ECON | Unknown | | + + + + + Care Team Providers + +------+ + | Care Sales Center Manager Name | Role | Phone [...] | | 2017 | | Center at [place] [address] | ACNP [address] | | | | | [address] | Ave [place], [place] | | | | | Mailcode: [place] | [address] | | | | | for Health and | [phone] | | | | | [facility] 2 | | | | | | [place], [place] | | | | | | [address] | | | | | | | [...] Rd | | | | | | [place], [place] | | | | | | [address] | | | | | | [phone] | | | | | | | | +--------+ + + + + | 08/19/ | Surgery | Surgery | Chilo | OPEN VENTRAL HERNIA | | 2019 | | | MD [address] | REPAIR WITH | | | | | [address] | BIOLOGICAL MESH | | | | | [place], [place] | | | | | | [address] | | | | | | [phone] | | | | | | | | +--------+ + + + + | 09/15/ | Office | Cardiology | Randell Franks, | | | 2019 | Visit | | [address] | | | | | | [place] | | | | | | [address] | | | | | | [phone] | | | | | | | | +--------+ + + + + documented as of this encounter Visit Diagnoses Not on filedocumented in this encounter"
--- OUTSIDE RECORDS SUMMARY | ~2019-06-25 | XMS | Encounter Summary ---
[...] [place], [place] | | | | | [address] | | + + + + + | Ellie Vang | ECON | Unknown | | + + + + + Care Team Providers + +------+ + | Care Gang Worker Name | Role | Phone | [...] | Tiny, | | | | | MT EST | Fadi Person DO | MD Randell | | | | | PATIENT | [address] | [address] | | | | | [address] | Ave | | | | | | [place], | [place], [place] | | | | | | [place] [address] | [address] | | | | | | Phone: | Phone: | | | | | | [phone] | [phone] | | | | | | Fax: | Fax: | | | | | | [phone] | [phone] | +--------+--------+ + + + + Encounter Details +--------+---------+ + + + | Date | Type | Department | Care Team | Description | +--------+---------+ + + + | 04/03/ | Office | Cardiology | Randell Franks, | Morbid obesity (HCC) | | 2015 | Visit | Preventive at [facility] | [address] | (Primary Dx); Type | | | | [address] | Ave [place], [place] | 2 diabetes mellitus | | | | Mailcode: [place] | [address] | without complication | | | | [facility] | [phone] | ([facility]) | | | | and [address], | | | | | | [address] | | | | | | [place], [place] | | | | | | [address] | | | | | | [phone] | | | +--------+---------+ + + + [...] 500 mg by mouth once daily. CALCIUM CRB&YGA-C2-RHD23-GENIS ORAL Take 1 tablet by mouth two [...] documented, but if we use her last [facility] weight of 410 lbs, this would put her at 360 lbs before consideration for RYGBP. She is working with the bariatric surgery pot sander to try to achieve this. She states [...] visit Diet: healthy, working with Bar Surg pot sander Exercise: "I walk everywhere." ROS: No CP, [...] Rd | | | | | | [place], [place] | | | | | | [address] | | | | | | [phone] | | | | | | | | +--------+ + + + + | 08/19/ | Surgery | Surgery | Chilo, | OPEN VENTRAL HERNIA | | 2019 | | | MD Jorje [address] | REPAIR WITH | | | | | [address] | BIOLOGICAL MESH | | | | | [place], [place] | | | | | | [address] | | | | | | [phone] | | | | | | | | +--------+ + + + + | 09/15/ | Office | Cardiology | Randell Franks, | | | 2019 | Visit | | [address] | | | | | | Ave [facility] [place] | | | | | | [address] | | | | | | [phone] | | | | | | | | +--------+ + + + + documented as of this encounter Visit Diagnoses + + | Diagnosis | + + | Morbid obesity (HCC) - Primary Morbid obesity | + + | Type 2 diabetes mellitus without complication (HCC) | + + documented in this encounter
--- OUTSIDE RECORDS SUMMARY | ~2019-06-25 | XMS | Encounter Summary ---
Demographics + + + | Address | [address] | | | [place] [address] | + + + | Home Phone [...] [place], [place] | | | | | [address] | | + + + + + | Ellie Vang | ECON | Unknown | | + + + + + Care Team Providers + +------+ + | Care Study Lead Name | Role | Phone | [...] | | 2019 | | Preventive at [facility] | [address] | re-test? ) | | | | [address] | [place], [place] | | | | | Mailcode: [facility] | [address] | | | | | [facility] | [phone] | | | | | and [address], | | | | | | [address] | | | | | | [place], [place] | | | | | | [address] | | | | | | [phone] | | | +--------+ + + + [...] Rd | | | | | | [place], [place] | | | | | | [address] | | | | | | [phone] | | | | | | | | +--------+ + + + + | 08/19/ | Surgery | Surgery | Chilo, | OPEN VENTRAL HERNIA | | 2019 | | | MD Jorje [address] | REPAIR WITH | | | | | [address] | BIOLOGICAL MESH | | | | | [place], [place] | | | | | | [address] | | | | | | [phone] | | | | | | | | +--------+ + + + + | 09/15/ | Office | Cardiology | Randell Franks, | | | 2019 | Visit | | [address] | | | | | | [place], [place] | | | | | | [address] | | | | | | [phone] | | | | | | | [...]
--- OUTSIDE RECORDS SUMMARY | ~2019-06-25 | XMS | Encounter Summary ---
Demographics + + + | Address | [address] | | | [place] [address] | + + + | Home Phone [...] Team Providers + +------+ + | Care Dispatch Specialist Name | Role | Phone | [...] | 2016 | | Preventive at [facility] | [address] | ([place]) | | | | [address] | Ave [place], [place] | | | | | Mailcode: [facility] | [address] | | | | | [facility] | [phone] | | | | | and [place], | | | | | | [address] | | | | | | [place], [place] | | | | | | [address] | | | | | | [phone] | | | +--------+ + + + [...] [place] | | | | | | [address] | | | | | | [phone] | | | | | | | | +--------+ + + + + | 08/19/ | Surgery | Surgery | Chilo | OPEN VENTRAL HERNIA | | 2019 | | | MD [address] | REPAIR WITH | | | | | [address] | BIOLOGICAL MESH | | | | | [place] | | | | | | [address] | | | | | | [phone] | | | | | | | | +--------+ + + + + | 09/15/ | Office | Cardiology | Randell Franks, | | | 2020 | Visit | | [address] | | | | | | [place], [place] | | | | | | [address] | | | | | | [phone] | | | | | | | | +--------+ + + + + documented as of this encounter Visit Diagnoses Not on filedocumented in this encounter"
--- OUTSIDE RECORDS SUMMARY | ~2019-06-25 | XMS | Encounter Summary ---
Demographics + + + | Address | [address] | | | [place] [address] | + + + | Home Phone [...] [place], [place] | | | | | [address] | | + + + + + | Ellie Vang | ECON | Unknown | | + + + + + Care Team Providers + +------+ + | Care Medical Policy Specialist Name | Role | Phone | [...] the | | | | | | [facility] [address] [facility] | | | | | | [facility] | | | | | | [place], [place] | | | | | | [address] | | | +--------+ + + + [...] Rd | | | | | | [place], [place] | | | | | | [address] | | | | | | [phone] | | | | | | | [...] [place] | | | | | | [address] | | | | | | [phone] | | | | | | | | +--------+ + + + + | 09/15/ | Office | Cardiology | Randell Franks, | | | 2019 | Visit | | [address] | | | | | | Ave [place], [place] | | | | | | [address] | | | | | | [phone] | | | | | | | | +--------+ + + + + documented as of this encounter Visit Diagnoses Not on filedocumented in this encounter"
--- OUTSIDE RECORDS SUMMARY | ~2019-06-25 | XMS | Encounter Summary ---
Demographics + + + | Address | [address] | | | [place] [address] | + + + | Home Phone [...] [place], [place] | | | | | [address] | | + + + + + [...] | | | [address] | [place], [place] | | | | | [address] [facility] | [address] | | | | | Rd Mailcode: [facility] | [phone] | | | | | Francesco [address] | | | | | | [address] [place], [place] | | | | | | [address] | | | | | | [phone] | | | +--------+ + + + [...] | | | | | | [place], [place] | | | | | | [address] | | | | | | [phone] | | | | | | | | +--------+ + + + + | 08/19/ | Surgery | Surgery | Chilo, | OPEN VENTRAL HERNIA | | 2019 | | | MD Jorje [address] | REPAIR WITH | | | | | [address] | BIOLOGICAL MESH | | | | | [place], [place] | | | | | | [address] | | | | | | [phone] | | | | | | | | +--------+ + + + + | 09/15/ | Office | Cardiology | Randell Franks, | | | 2019 | Visit | | [address] | | | | | | [place], [place] | | | | | | [address] | | | | | | [phone] | | | | | | | | +--------+ + + + + documented as of this encounter Visit Diagnoses Not on filedocumented in this encounter"
--- OUTSIDE RECORDS SUMMARY | ~2019-06-25 | XMS | Encounter Summary ---
[...] [place], [place] | | | | | [address] | | + + + + + | Ellie Vang | ECON | Unknown | | + + + + + Care Team Providers + +------+ + | Care Chemical Mixer Name | Role | Phone | [...] Pre-operative | | 2019 | cheduled | [facility] at | | evaluation | | | | [facility] | | | | | | [address] | | | | | | Mail Code: OC8PM | | | | | | [facility] | | | | | | and Healing, | | | | | | [address] | | | | | | [place], [place] | | | | | | [address] | | | | | | [phone] | | | +--------+ + + + [...] not have access to check in ti [facility], and we encourage you to contact [...] MG TABLET ATENOLOL 50 MG TABLET CALCIUM CRB&GGN-M3-KNJ86-GENIS ORAL CYANOCOBALAMIN (VIT B-12) 1,000 MCG TABLET [...] it is after office hours, call the [facility] tying in machine operator at [phone] and ask them to page him or [...] Rd | | | | | | [facility] [place] | | | | | | [address] | | | | | | [phone] | | | | | | | | +--------+ + + + + | 08/19/ | Surgery | Surgery | Chilo, | OPEN VENTRAL HERNIA | | 2019 | | | MD Jorje [address] | REPAIR WITH | | | | | [address] | BIOLOGICAL MESH | | | | | [place], [place] | | | | | | [address] | | | | | | [phone] | | | | | | | | +--------+ + + + + | 09/15/ | Office | Cardiology | Randell Frakns, | | | 2019 | Visit | | [address] | | | | | | Ave [place], [place] | | | | | | [address] | | | | | | [phone] | | | | | | | | +--------+ + + + + documented as of this encounter Visit Diagnoses Not on filedocumented in this encounter
--- OUTSIDE RECORDS SUMMARY | ~2019-06-25 | XMS | Encounter Summary ---
[...] [place], [place] | | | | | [address] | | + + + + + | Ellie Vang | ECON | Unknown | | + + + + + Care Team Providers + +------+ + | Care White Shoe Ragger Name | Role | Phone | + [...] | | 2019 | | Center at [facility] 1933 | AGACNP [address] | | | | | [address] | [place], [place] | | | | | Mailcode: [place] | [address] | | | | | for [facility] and | | | | | | [address] [address] | | | | | | [place], [place] | | | | | | [address] | | | | | | | [...] Rd | | | | | | [place] | | | | | | [address] | | | | | | [phone] | | | | | | | | +--------+ + + + + | 08/19/ | Surgery | Surgery | Chilo, | OPEN VENTRAL HERNIA | | 2019 | | | MD Jorje [address] | REPAIR WITH | | | | | [address] | BIOLOGICAL MESH | | | | | [place] | | | | | | [address] | | | | | | [phone] | | | | | | | | +--------+ + + + + | 09/15/ | Office | Cardiology | Randell Franks, | | | 2019 | Visit | | [address] | | | | | | [place] | | | | | | [address] | | | | | | [phone] | | | | | | | | +--------+ + + + + documented as of this encounter Visit Diagnoses Not on filedocumented in this encounter"
--- OUTSIDE RECORDS SUMMARY | ~2019-06-25 | XMS | Encounter Summary ---
Demographics + + + | Address | [address] | | | [place] [address] | + + + | Home Phone [...] [place], [place] | | | | | [address] | | + + + + + | Ellie Vang | ECON | Unknown | | + + + + + Care Team Providers + +------+ + | Care Boathouse Keeper Name | Role | Phone | [...] | | | | | Procedures | [place], [place] | [place], [place] | | | | | CONSULT TO | [address] | [address] | | | | | CAR | Phone: | Phone: | | | | | PREVENTATIVE | [phone] | [phone] | | | | | [facility] - | Fax: | Fax: | | | | | LIPIDS | [phone] | [phone] | +--------+--------+ + + + + Encounter Details +--------+---------+ + + + | Date | Type | Department | Care Team | Description | +--------+---------+ + + + | 09/11/ | Office | Cardiology | Olga Lidia Montanez, | 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 | Visit | Preventive at [facility] | [address] | BMI of 70 and over, | | | | [address] | [address] | adult (HCC) (Primary | | | | Mailcode: CH7C | [place], [place] | Dx) | | | | [facility] | [address] | | | | | and Healing, | | | | | | Building [address] | | | | | | [place], [place] | | | | | | [address] | | | | | | [phone] | | | +--------+---------+ + + + [...] Olga Lidia Montanez RD, LD [facility] Bariatric department (to reschedule classes): [phone] Goals: 1. Try to stop buying Pop-Tarts 2. Replace afternoon snack (think of this as lunch) with vegetables or fruit -cucumbers, carrots, broccoli, cauliflower, etc. -try making ranch dip w/ nonfat plain yogurt (regular or Tanzanian) (or mix yogurt w/ salsa; o r chipotle hot sauce & rincon juice) 3. Snack ideas: -fruit -vegetables (with hummus or yogurt dip) -Tanzanian yogurt - light (have w/ fruit if you're still hungry) -applesauce - unsweetened, w/ lowfat string cheese -1/4 cup nuts -lowfat string cheese -low-fat or non-fat cottage cheese w/ tomatoes 4. Aim for 60-80 grams of protein a day (see list) 5. Add Tanzanian yogurt to breakfast Heart Protection Kitchen from [facility] Healthy eating made simple. What: FREE heart-healthy cooking demonstrations led by guest air surveillance operator and nutrition experts. Samples are provided! Where: [facility] ([facility]), September, 2nd floor teaching kitchen When: All classes from 11:00am-12:00pm ? October 12 (led by Dr. Paulino Carreno MD) Please contact Keerthi Boyer at [phone] or email at [email or web address] for information on upcoming classes and to register. Space is limited - reserve your seat today! Want more info on what to eat? Watch the [employer] video, "Healthy Eating 101," at [email or web address]/watch?[email or web address] documented in this encounter Progress Notes Olga Lidia Montanez RD - 09/11/2017 2:30 PM PSTFormatting of this note might be different fro m the original. [facility] Card[facility], Nutrition Consultation Referring provider: Dr. Randell Franks MD Referring diagnosis: obesity, HF, DM2 Visit type: Initial; tprv-yb-pxne visit with patient Questions/Information desired today: Hoping [...] Still has bariatric notebooks at home. Per [employer] message from Dr. Pandey 09/10/17: "Just tell [...] & 1% milk; occ w/ applesauce or Tanzanian yogurt No L S (3pm): pop-tart or [...] too expensive. Occ fruit bowls from [facility]. Vegetables: every day w/ dinner [...] in PT 2x/week for bariatric program (in [place]) UBW: 385-391 lbs Max weight: 529 lbs Weight history: lost from 495 lbs to 383 lbs in 6816-6574 on Atkins diet ANTHROPOMETRICS: Height: Ht Readings from Last 1 Encounters: 09/11/17 1.549 m (5' 1") Weight: Wt Readings from Last 1 Encounters: 09/11/17 176.5 kg (389 lb 3.2 oz) 11/28/16 179.443 kg (395 lb 10 oz) Body mass index is 73.54 kg/m. 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 Currently eating energy-dense/nurient-poor foods [...] She plans to d/c diet soda on 3/1/18. Handout(s) provided: My Heart-Healthy Plate; Patient Instructions; [...] of protein a day - add light Tanzanian yogurt to breakfast; include lean protein with PM snack/lunch 3. D/c carbonated beverages (e.g., diet soda); replace with water, Crystal Light, diet deca f tea, or other calorie-free still beverage Contact information was provided; call or send [employer] message to dietitian with any questi ons. [...] Rd | | | | | | [place], [place] | | | | | | [address] | | | | | | [phone] | | | | | | | | +--------+ + + + + | 08/19/ | Surgery | Surgery | Chilo, | OPEN VENTRAL HERNIA | | 2019 | | | MD [address] | REPAIR WITH | | | | | [address] | BIOLOGICAL MESH | | | | | [facility] [place] | | | | | | [address] | | | | | | [phone] | | | | | | | | +--------+ + + + + | 09/15/ | Office | Cardiology | Randell Franks, | | | 2020 | Visit | | [address] | | | | | | [place], [place] | | | | | | [address] | | | | | | [phone] | | | | | | | | +--------+ + + + + documented as of this encounter Visit Diagnoses + + | Diagnosis | + + | Morbid obesity with BMI of 70 and over, adult (HCC) - Primary | + + documented in this encounter
--- OUTSIDE RECORDS SUMMARY | ~2019-06-25 | XMS | Encounter Summary ---
Demographics + + + | Address | [address] | | | [place] [address] | + + + | Home Phone [...] [place], [place] | | | | | [address] | | + + + + + | Ellie Vang | ECON | Unknown | | + + + + + Care Team Providers + +------+ + | Care Veterinarian Poultry Name | Role | Phone | + [...] | | | | | | [place] [address] | | | | | | [phone] | | | +--------+ + + + [...] Rd | | | | | | [place], [place] | | | | | | [address] | | | | | | [phone] | | | | | | | | +--------+ + + + + | 08/19/ | Surgery | Surgery | Chilo, | OPEN VENTRAL HERNIA | | 2019 | | | MD Jorje [address] | REPAIR WITH | | | | | [address] | BIOLOGICAL MESH | | | | | [place] | | | | | | [address] | | | | | | [phone] | | | | | | | | +--------+ + + + + | 09/15/ | Office | Cardiology | Randell Franks, | | | 2019 | Visit | | [address] | | | | | | [place] | | | | | | [address] | | | | | | [phone] | | | | | | | | +--------+ + + + + documented as of this encounter Visit Diagnoses Not on filedocumented in this encounter"
--- OUTSIDE RECORDS SUMMARY | ~2019-06-25 | XMS | Encounter Summary ---
Demographics + + + | Address | [address] | | | [place] [address] | + + + | Home Phone [...] [place], [place] | | | | | [address] | | + + + + + | Ellie Vang | ECON | Unknown | | + + + + + Care Team Providers + +------+ + | Care Hard Metals Engraver Hand Name | Role | [...] | 2013 | | Center at [facility] [address] | OFFSET PRESS OPERATOR APPRENTICE [address] | | | | | [address] | [facility] [address] | | | | | Mailcode: Center | [place], [place] | | | | | [facility] and | [address] | | | | | [facility] 2 | [phone] | | | | | [place], [place] | | | | | | [address] | | | | | | [phone] | | | +--------+ + + + [...] | | | | | | [place], [place] | | | | | | [address] | | | | | | [phone] | | | | | | | | +--------+ + + + + | 08/19/ | Surgery | Surgery | Chilo | OPEN VENTRAL HERNIA | | 2019 | | | MD Jorje [address] | REPAIR WITH | | | | | [address] | BIOLOGICAL MESH | | | | | [place], [place] | | | | | | [address] | | | | | | [phone] | | | | | | | | +--------+ + + + + | 09/15/ | Office | Cardiology | Randell Franks, | | | 2019 | Visit | | [address] | | | | | | Ave [place], [place] | | | | | | [address] | | | | | | [phone] | | | | | | | | +--------+ + + + + documented as of this encounter Visit Diagnoses Not on filedocumented in this encounter"
--- OUTSIDE RECORDS SUMMARY | ~2019-06-25 | XMS | Encounter Summary ---
Demographics + + + | Address | [address] | | | [place] [address] | + + + | Home Phone [...] [place], [place] | | | | | [address] | | + + + + + | Ellie Vang | ECON | Unknown | | + + + + + Care Team Providers + +------+ + | Care Engine Repairer Name | Role | Phone | + +------+ + | Fadi Goodrich DO | PCP | | + +------+ + Encounter Details +--------+------+ + + + | Date | Type | Department | Care Team | Description | +--------+------+ + + + | 11/28/ | Lab | Laboratory at [facility] | | Essential | | 2017 | | [address] | | hypertension; Right | | | | [place], [place] | | heart failure (HCC); | | | | [address] | | Type 2 diabetes | | | | [phone] | | mellitus without | | | [...] Rd | | | | | | [place], [place] | | | | | | [address] | | | | | | [phone] | | | | | | | | +--------+ + + + + | 08/19/ | Surgery | Surgery | Chilo, | OPEN VENTRAL HERNIA | | 2019 | | | MD Jorje [address] | REPAIR WITH | | | | | [address] | BIOLOGICAL MESH | | | | | [place], [place] | | | | | | [address] | | | | | | [phone] | | | | | | | | +--------+ + + + + | 09/15/ | Office | Cardiology | Randell Franks, | | | 2019 | Visit | | [address] | | | | | | [address] [place], [place] | | | | | | [address] | | | | | | [phone] | | | | | | | [...] LDL | | PDT | heart failure ([facility]) | results section. | | | [...] | | use of insulin ([facility]) | | + +--------+ + + + | TSH | Routin | 11/28/2016 | Essential | Results for this | | | e | 10:53 AM | hypertension Right | procedure are in the | | | | PDT | heart failure ([facility]) | results section. | | | [...] | PDT | heart failure ([facility]) | results section. | | | [...] | [facility] | [address] | [place] [address] | | | CLAIRE, LYDIA | CLARENCE [...] [facility] | [address] | [place], [place] | | | SERVICES, LIPID | [address] | [address] | | + + + + + [...] glycated albumin should be considered for monitoring mcc | LABORATORY | | glycemic control in [...] [facility] | [address] | [place] [address] | | | SERVICES, SPECIAL | [address] [...] [facility] | [address] | [place] [address] | | | SERVICES, CORE | [address] [...]
--- OUTSIDE RECORDS SUMMARY | ~2019-06-25 | XMS | Encounter Summary ---
Demographics + + + | Address | [address] | | | [place] [address] | + + + | Home Phone [...] [place], [place] | | | | | [address] | | + + + + + | Ellie Vang | ECON | Unknown | | + + + + + Care Team Providers + +------+ + | Care Shift Commander Name | Role | Phone | + [...] PRINCE Giles | | | | | [place], [place] | [address] | | | 11/12/ | | [address] | [place], [place] | | | 2012 | | [phone] | [address] | | | | | | [phone] | | | | | | | [...] yuriy tral hernia. She was transferred from [place] for surgical evaluation of possible incarcer ated [...] Cipro. POD 5 she was discharged ho ma, tolerating a diabetic diet. Having bowel function. [...] yuriy tral hernia. She was transferred from [place] for surgical evaluation of possible incarcer ated [...] Cipro. POD 5 she was discharged ho ma, tolerating a diabetic diet. Having bowel function. [...] keeping you from eating and drinking, Call [phone]. It is important to stay hydrated! If [...] taking narcotic that contain Tylenol (acetaminophen) Example: [place], Lortab, Vicodin, hydrocodone/APAP, Percocet, Tylenol #3 PAIN MEDICATIONS are ONLY REFILLED during CLINIC APPOINTMENTS. Please call [phone] to schedule an appointment. Your Follow-Up Plan Follow up with ROBIN MEJIA in 2 weeks. Contact information: [address] [facility] [address] Vitals on discharge: Ht 154.9 cm (5' [...] original. [facility] DEPARTMENT OF SURGERY EMERGENCY GENERAL SURGERY [...] clinic [place]. [place] [address] pager number [facility] [phone] [facility] [address] Aminta Goodwin Md - 11/11/2012 7:40 AM PDT [facility] DEPARTMENT OF SURGERY EMERGENCY GENERAL SURGERY Division of Trauma and Critical Care Attending Physician: Andie Brian MD Progress Note Note Date: 11/11/2012 Admission Date: 11/06/2012 DYLAN ROMERO, [id number] Hospital Day #5 INTERVAL EVENTS none acute [...] mg, Rectal, DAILY PRN, Aminta Wilson MD uxltqshemx-bdvdtkaitdgik-zpfeeqel (aka FIORICET) 50-325-40 mg 1 Tab, 1 [...] Jayne Ponce MD, 1 mg at 11/10/12801 kiippgswkg-spkymuvdsswil-xfyfmrkz (aka FIORICET) 50-325-40 mg 1 Tab, 1 [...] in preservative free NaCl 0.9% 50 mL BALANCE WHEEL FACER infusion, , Intravenous, KIESHA NUGRANT, Aracely Mccartynato, [...] diet -add bowel regimen Acute pain -HM BALANCE WHEEL FACER, tylenol -convert to oral pain medication once [...] Fluids: LR 125ml/hr Feeding: NPO Analgesia: Dilaudid BALANCE WHEEL FACER Sedation: not indicated Thromboprophylaxis: enoxaparin Head of [...] Ponce MD, 1 mg at 11/09/12 0855 malxnbycej-bmtgdhyesbchl-uunxzxtw (aka FIORICET) 50-325-40 mg 1 Tab, 1 [...] in preservative free NaCl 0.9% 50 mL BALANCE WHEEL FACER infusion, , Intravenous, KIESHA NUOUS, Aracely Cruzo, [...] drainage <30ml for 24hrs Acute pain -HM BALANCE WHEEL FACER, tylenol Diabetes: -insulin gtt not started due [...] Fluids: LR 125ml/hr Feeding: NPO Analgesia: Dilaudid BALANCE WHEEL FACER Sedation: not indicated Thromboprophylaxis: enoxaparin Head of bed: > 30 Ulcer prophylaxis: pepcid Glycemic control: adequate Activity/PT/OT: Ongoing Yogurt: ABX on Probiotics:yes AMINTA WILSON MD General Surgery, R1 Kaleb Martin N P - 11/08/2012 8:49 AM PDT [facility] DEPARTMENT OF SURGERY EMERGENCY GENERAL SURGERY Division of Trauma and Critical Care Attending Physician: Andie Brian MD Progress Note Note Date: 11/08/2012 Admission Date: 11/06/2012 DYLAN ROMERO, [id number] Hospital Day #2 INTERVAL EVENTS NO SUBJECTIVE Pain well controlled; has headache attributed to dilaudid BALANCE WHEEL FACER Tylenol did not help. Flatus: YES Tolerating [...] trials today. -DC ruiz Acute pain -HM BALANCE WHEEL FACER, tylenol Diabetes: -insulin gtt not started due [...] Fluids: LR 125ml/hr Feeding: NPO Analgesia: Dilaudid BALANCE WHEEL FACER Sedation: not indicated Thromboprophylaxis: enoxaparin Head of bed: > 30 Ulcer prophylaxis: pepcid Glycemic control: adequate Activity/PT/OT: Ongoing Yogurt: ABX on Probiotics: No KALEB WALKER NP [facility] [address] [place] [address] elvin Stephens MD - 11/07/2012 9:51 PM [...] 7.33* PCO2 49* PO2 113* HCO3 25 PWIKV2YLD 26 V2MEOCHC 98.3* D3DJJGSCK -- FIO2 60 ABGEXCESS -0.9 Assessment, Medical Decision Making and Plan 1. Incarcerated hernia, now s/p repair and panniculectomy -Binder, pain control, minimize nausea and coughing PRN. -NG clamping trials today. 2. Acute pain -HM BALANCE WHEEL FACER, tylenol 3. Diabetes: -insulin gtt 4. Morbid [...] Dione Grimes MD R-2, General Surgery Pager: [phone] [facility] [place] Department of Surgery Trauma ICU Team Pager (24hrs/day): [phone] I was present with the resident during the history and exam. I discussed the case with the resident and agree with the findings and plan as documented in the resident s note. KELVIN STEPHENS MD [facility] [address] [place] [address] [id number] uOnur patton MD - 11/07/2012 2:37 AM [...] 325-650 mg 325-650 mg Oral Q4H PRN Danyn Lagos MD [place] acetaminophen (aka TYLENOL) oral [...] in preservative free NaCl 0.9% 50 mL BALANCE WHEEL FACER infusion Intravenous CON TINUOUS Aracely Flores, DO [...] BACTROBAN) 2 % ointment Nasal BID Danny Lgaos MD naloxone (aka NARCAN) injection Intravenous PRN [...] POD#1 s/p primary repair. 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 lightout examiner and prn tylenol, continue prozac and zyprexa [...] F: probable remain NPO today A: dilaudid lightout examiner, prn tylenol S: prn benzos as she is at home T: will start prophylactic lovenox today H: HOB >30 degrees U: pepcid G: insulin gtt ONUR ALLEN MD, PGY3 [facility] [address] [id number] [place] [address] Onelia Shrestha MD - 11/06/2012 8:41 AM PDT [facility] DEPARTMENT OF SURGERY Division of Trauma and Critical Care Emergency General Surgery / Acute Care Surgery Attending Physician: Andie Brian MD Note Date: 11/06/2012 Admission Date: 11/06/2012 DYLAN ROMERO, [id number] Hospital Day #0 OVERNIGHT EVENTS: anxious SUBJECTIVE: [...] zenia LABS: reviewed and are available in [facility] (if new data) IMAGING: VASCULAR: IMPRESSION: Dylan [...] Rd | | | | | | [place], [place] | | | | | | [address] | | | | | | [phone] | | | | | | | | +--------+ + + + + | 08/19/ | Surgery | Surgery | Chilo, | OPEN VENTRAL HERNIA | | 2019 | | | MD Jorje [address] | REPAIR WITH | | | | | [address] | BIOLOGICAL MESH | | | | | [place], [place] | | | | | | [address] | | | | | | [phone] | | | | | | | | +--------+ + + + + | 09/15/ | Office | Cardiology | Randell Franks, | | | 2019 | Visit | | [address] | | | | | | [place], [place] | | | | | | [address] | | | | | | [phone] | | | | | | | [...] Mae | | | | | | [place] | | | | + + + + + + + + | Specimen | + + | | + + + +---------+ + + | Performing | Address | City/State/Zipcode | Phone Number | | Organization | | | | + +---------+ + + | [facility] DEPARTMENT OF | | [...] AMES | [address] | [place], [place] | | | JUSTINE DAWN OF [facility] | [address] | [address] | | | TESTS | | | [...] MARQUAM | [address] | [place], [place] | | | JUSTINE DAWN OF CARE | [address] | [address] | | | TESTS | | | [...] [facility] | [address] | [place] [address] | | | SERVICES, CORE | CLARENCE [...] [facility] | [address] | [place] [address] | | | SERVICES, CORE | [address] | | | + + + + + MAGNESIUM, PLASMA (11/12/2012 3:56 AM PDT) + +-------+ + + + | Component | Value | Ref Range | Performed | Pathologist | | | | | At | Signature | + +-------+ + + + | MAGNESIUM,P | 1.8 | 1.8 - 2.5 mg/dL | [facility] | | | LASMA | | | [...] + + | [facility] [employer] | [address] | [place] [address] | | | SERVICES, CORE | CLARENCE [...] Y[facility] | [address] | [place] | | | JUSTINE DAWN OF CARE | [address] | [address] | | | TESTS | | | [...] MARQUAM | [address] | [place], [place] | | | JUSTINE DAWN OF JAKY | [address] | [address] | | | TESTS | | | [...] | NKECHI AMES | [address] | [place], [place] | | | JUSTINE DAWN OF CARE | [address] | [address] | | | TESTS | | | [...] MARQUAM | [address] | [place] | | | JUSTINE DAWN OF JAKY | [address] | [address] | | | TESTS | | | [...] KWAKU | [address] | [place], [place] | | | L[place] INDEPENDENCE OF [facility] | [facility] | [address] | | | TESTS | | | [...] [facility] | [address] | [place] [address] | | | SERVICES, CORE | [address] [...] + + | [facility] [employer] | [address] [facility] [address] | [place] [address] | | | SERVICES, CORE | CLARENCE [...] [facility] | [address] | [place] [address] | | | SERVICES, CORE | CLARENCE [...] - MARQUAM | [address] | [place], [place] | | | L[place] POINT OF CARE | [address] | [address] | | | TESTS | | | [...] + + + | NKECHI AMES | [address] | [place], [place] | | | [place] POINT OF CARE | [address] | [address] | | | TESTS | | | [...] MARQUAM | [address] | [place], [place] | | | [place] POINT OF CARE | [address] | [address] | | | TESTS | | | [...] - MARQUAM | [address] | [place], [place] | | | [place] POINT OF CARE | [address] | [address] | | | TESTS | | | [...] AMES | [address] | [place], [place] | | | JUSTINE DAWN OF JAKY | [address] | [address] | | | TESTS | | | [...] | + + + + + | [facility] | [address] [facility] [address] | [place] [address] | | | SERVICES, CORE | CLARENCE [...] HOSPITAL LAB[facility]ATORY | [address] | [place] [address] | | | SERVICES, CORE | [address] | | | + + + + + MAGNESIUM, PLASMA (11/10/2012 3:40 AM PDT) + +---------+ + + + | Component | Value | Ref Range | Performed | Pathologist | | | | | At | Signature | + +---------+ + + + | MAGNESIUM,P | 1.5 (L) | 1.8 - 2.5 mg/dL | [facility] | | | PRASH[facility]MA | | | [...] | + + + + + | [facility] | [address] | [place] [address] | | | SERVICES, CORE | [address]ARK [...] 92 | 60 - 99 mg/dL | COOPER [...] AMES | [address] | [place], [place] | | | L[place] POINT OF CARE | [address] | [address] | | | TESTS | | | [...] MARQUAM | [address] | [place], [place] | | | L[place] POINT OF CARE | [address] | [address] | | | TESTS | | | [...] - KWAKU | [address] | [place], [place] | | | JUSTINE DAWN OF CARE | [address] | [address] | | | TESTS | | | [...] - | | | | | | [place] | | + + + + + + | SOURCE BODY | Urine | | [facility] - | | | SITE | | | AIRPORT - | | | | | | [place] | | + + + + + + | CULTURE | C UrineSource: Urine | | [facility] - | | | RESULT | | | AIRPORT - | | | | Final CULTURE | | [place] | | | | RESULT:>100,000 cfu/ml | [...] + | [facility] - AIR[facility] - | [address] | [place] [address] | | | [facility] | | | | + + + [...] [facility] | [address] | [place] [address] | | | SERVICES, CORE | PARK [...] [facility] | [address] | [place] [address] | | | SERVICES, CORE | PARK [...] - KWAKU | [address] | [place], [place] | | | [place] POINT OF [facility] | [address] | [address] | | | TESTS | | | [...] + + | [facility] [employer] | [address] [facility] [address] | [place] [address] | | | CLAIRE, LYDIA | CLARENCE [...] | + + + + + | [facility] | [address] | [place] [address] | | | SERVICES, CORE | CLARENCE [...] [facility] | [address] | [place] [address] | | | SERVICES, LYDIA | CLARENCE [...] KWAKU | [address] | [place], [place] | | | L[place] POINT OF CARE | [address] | [address] | | | TESTS | | | [...] AMES | [address] | [place], [place] | | | JUSTINE DAWN OF JAKY | [address] | [address] | | | TESTS | | | [...] MARQUAM | [address] | [place], [place] | | | JUSTINE DAWN OF CARE | [address] | [address] | | | TESTS | | | [...] [facility] | [address] | [place] [address] | | | SERVICES, CORE | PARK [...] [facility] | [address] | [place] [address] | | | SERVICES, CORE | PARK [...] | + + + + + | [facility] | [address] | [place] [address] | | | SERVICES, CORE | CLARENCE [...] MARQU[facility] | [address] | [place], [place] | | | L[place] POINT OF CARE | [email or web address] | [address] | | | TESTS | | | [...] K[facility] | [address] | [place], [place] | | | JUSTINE DAWN OF CARE | [address] | [address] | | | TESTS | | | [...] AMES | [address] | [place], [place] | | | JUSTINE DAWN OF JAKY | [address] | [address] | | | TESTS | | | [...] | + + + + + | [facility] | [address] | [place] [address] | | | SERVICES, CORE | CLARENCE [...] [facility] | [address] | [place] [address] | | | CLAIRE, LYDIA | [address] [...] | + + + + + | [facility] | [address] | [place] [address] | | | SERVICES, CORE | [address] | | | + + + + + X-RAY PORTABLE CHEST 1 VIEW (11/06/2012 4:46 PM PDT) + + + + + + | Component | Value | Ref Range | Performed | Pathologist | | | | | At | Signature | + + + + + + | X-RAY | STUDY: OK CHEST 1 VIEW | | | | | PORTABLE | 11/06/12 16:46:00 | | | | | CHEST 1 | INDICATION: Right upper | | | | | VIEW | lobe opacity. | | | | | | COMPARISON: Earlier same | | | | | | day a STUDY: OK CHEST 1 | | | | | [...] | | + +---------+ + + | [facility] DEPARTMENT OF | | [...] + + + | X-RAY | STUDY: [place] CHEST 1 VIEW | | | | [...] | | + +---------+ + + | [facility] DEPARTMENT OF | | [...] | + + + + + | [facility] | [address] | [place] [address] | | | SERVICES, CORE | CLARENCE [...] [facility] | [address] | [place] [address] | | | SERVICES, CORE | CLARENCE [...] HOSPITAL LAB[facility]ORY | [address] | [place] [address] | | | SERVICES, CORE | CLARENCE [...] AMES | [address] | [place], [place] | | | JUSTINE DAWN OF CARE | [address] | [address] | | | TESTS | | | [...] AMES | [address] | [place], [place] | | | L[place] POINT OF CARE | [address] | [address] | | | TESTS | | | [...] MARQUAM | [address] | [place], [place] | | | JUSTINE DAWN OF JAKY | [address] | [address] | | | TESTS | | | [...] KW[facility] | [address] | [place], [place] | | | JUSTINE DAWN OF CARE | [facility] | [address] | | | TESTS | | | [...] AMES | [address] | [place], [place] | | | JUSTINE DAWN OF CARE | [facility] | [address] | | | TESTS | | | [...] KWAKU | [address] | [place], [place] | | | JUSTINE DAWN OF CARE | [address] | [address] | | | TESTS | | | [...] KWAKU | [address] | [place], [place] | | | JUSTINE DAWN OF CARE | [facility] | [address] | | | TESTS | | | [...] AMES | [address] | [place], [place] | | | JUSTINE DAWN OF CARE | [facility] | [address] | | | TESTS | | | [...] KWAKU | [address] | [place], [place] | | | JUSTINE DAWN OF JAKY | [address] | [address] | | | TESTS | | | [...] MARQUAM | [address] | [place], [place] | | | JUSTINE DAWN OF CARE | [address] | [address] | | | TESTS | | | [...] AMES | [address] | [place], [place] | | | JUSTINE DAWN OF CARE | [address] | [address] | | | TESTS | | | [...] LABORATORY | [address] | [place] [address] | | | CLAIRE, | [address] [...] KWAKU | [address] | [place], [place] | | | JUSTINE DAWN OF CARE | [address] | [address] | | | TESTS | | | [...] | + + + + + | [facility] | [address] | [place] [address] | | | SERVICES, | [address] [...] [facility] | [address] | [place] [address] | | | SERVICES, | [address] [...] | + + + + + | [facility] | [address] [facility] | [place] [address] | | | SERVICES, CORE | CLARENCE [...] HOSPITAL LAB[facility]ORY | [address] | [place] [address] | | | SERVICES, CORE | PARK [...] [facility] | [address] | [place] [address] | | | SERVICES, CORE | PARK [...] HOSPITAL LAB[facility]ORY | [address] | [place] [address] | | | SERVICES, CORE | PARK [...] [facility] | [address] [facility] | [place] [address] | | | LYDAI RANGEL | [address] | | | [...] view image for the detailed interpretation from [employer] results. | CARDIOLOGY | + + + + + + + + | Performing | Address | City/State/Zipcode | Phone Number | | Organization | | | | + + + + + | [facility] | [address] | [place] | | | CARDIOLOGY | [address] | [address] | | + + + + + [...] [facility] | [address] | [place] [address] | | | SERVICES, CORE | PARK [...] [facility] | [address] | [place] [address] | | | SERVICES, CORE | CLARENCE [...] | 1 tablet | | | | yjkhewwiwd-qfmafobrjgibj-xlngvlab | | 13 8:02 | | | [...] 13 7:36 | | | | | BALANCE WHEEL FACER infusion intravenous, | | PM PDT | [...]
--- OUTSIDE RECORDS SUMMARY | ~2019-06-25 | XMS | Encounter Summary ---
Demographics + + + | Address | [address] | | | [place] [address] | + + + | Home Phone [...] [place], [place] | | | | | [address] | | + + + + + | Ellie Vang | ECON | Unknown | | + + + + + Care Team Providers + +------+ + | Care Learning And Development Associate Name | Role | Phone | [...] Lesly | | | | | Mailcode: [place] | [place], [place] | | | | | [facility] and | [address] | | | | | [facility] 2 | [phone] | | | | | [place], [place] | | | | | | [address] | | | | | | [phone] | | | +--------+ + + + [...] | | | | | | [place], [place] | | | | | | [address] | | | | | | [phone] | | | | | | | | +--------+ + + + + | 08/19/ | Surgery | Surgery | Chilo, | OPEN VENTRAL HERNIA | | 2019 | | | MD Jorje [address] | REPAIR WITH | | | | | [address] | BIOLOGICAL MESH | | | | | [place], [place] | | | | | | [address] | | | | | | [phone] | | | | | | | | +--------+ + + + + | 09/15/ | Office | Cardiology | Randell Franks, | | | 2019 | Visit | | [address] | | | | | | [address] [place], [place] | | | | | | [address] | | | | | | [phone] | | | | | | | | +--------+ + + + + documented as of this encounter Visit Diagnoses Not on filedocumented in this encounter"
--- OUTSIDE RECORDS SUMMARY | ~2019-06-25 | XMS | Encounter Summary ---
Demographics + + + | Address | [address] | | | [place] [address] | + + + | Home Phone [...] [place], [place] | | | | | [address] | | + + + + + | Ellie Vang | ECON | Unknown | | + + + + + Care Team Providers + +------+ + | Care Vp Ad Sales West Name | Role | Phone | + [...] Mailcode:OP14B | | | | | | [facility] | | | | | | [place], [place] | | | | | | [address] | | | | | | [phone] | | | +--------+ + + + [...] [place] | | | | | | [address] | | | | | | [phone] | | | | | | | | +--------+ + + + + | 08/19/ | Surgery | Surgery | Chilo | OPEN VENTRAL HERNIA | | 2019 | | | MD Demond Recinos | REPAIR WITH | | | | | [address] | BIOLOGICAL MESH | | | | | [place], [place] | | | | | | [address] | | | | | | [phone] | | | | | | | | +--------+ + + + + | 09/15/ | Office | Cardiology | Randell Franks, | | | 2019 | Visit | | [address] | | | | | | [place], [place] | | | | | | [address] | | | | | | [phone] | | | | | | | [...] in | | | | | | [place]. | | | | | | | | | | | | Julia Blackman at [facility]. | | | | | | [...] | | | | artery. A 4.1 Bengali | | | | | | catheter was navigated | | | | | | over0.035" Donal coated | | | | | | [employer] guide wire into | | | | [...] | + +---------+ + + | [facility] DEPARTMENT OF | | | | | RADIOLOGY | | | | + +---------+ + + documented in this encounter Visit Diagnoses Not on filedocumented in this encounter
--- OUTSIDE RECORDS SUMMARY | ~2019-06-25 | XMS | Encounter Summary ---
Demographics + + + | Address | [address] | | | [place] [address] | + + + | Home Phone [...] [place], [place] | | | | | [address] | | + + + + + | Ellie Vang | ECON | Unknown | | + + + + + Care Team Providers + +------+ + | Care Rehab Spec Name | Role | Phone | [...] | 2014 | | Preventive at [facility] | MD [address] | | | | | [address] | [place], [place] | | | | | Mailcode: [facility] | [address] | | | | | [facility] | [phone] | | | | | and Erick | | | | | | [address] | | | | | | [place], [place] | | | | | | [address] | | | | | | [phone] | | | +--------+ + + + [...] Rd | | | | | | [facility] [place] | | | | | | [address] | | | | | | [phone] | | | | | | | | +--------+ + + + + | 08/19/ | Surgery | Surgery | Chilo | OPEN VENTRAL HERNIA | | 2019 | | | MD Demond Recinos [address] | REPAIR WITH | | | | | [address] | BIOLOGICAL MESH | | | | | [place], [place] | | | | | | [address] | | | | | | [phone] | | | | | | | | +--------+ + + + + | 09/15/ | Office | Cardiology | Randell Franks, | | | 2019 | Visit | | MD [address] | | | | | | [place], [place] | | | | | | [address] | | | | | | [phone] | | | | | | | | +--------+ + + + + documented as of this encounter Visit Diagnoses Not on filedocumented in this encounter"
--- OUTSIDE RECORDS SUMMARY | ~2019-06-25 | XMS | Encounter Summary ---
Demographics + + + | Address | [address] | | | [place] [address] | + + + | Home Phone [...] [place], [place] | | | | | [address] | | + + + + + | Ellie Vang | ECON | Unknown | | + + + + + Care Team Providers + +------+ + | Care Java Security Engineer Name | Role | Phone | [...] | | 2014 | | Center at [facility] [address] | [facility] [address] | | | | | [address] | [place], [place] | | | | | Mailcode: Center | [phone] | | | | | for Health and | | | | | | [place] [address] | | | | | | [place], [place] | | | | | | [address] | | | | | | [phone] | | | +--------+ + + + [...] [address] | | | | | | [place], [place] | | | | | | [address] | | | | | | [phone] | | | | | | | | +--------+ + + + + | 08/19/ | Surgery | Surgery | Chilo, | OPEN VENTRAL HERNIA | | 2019 | | | MD [address] | REPAIR WITH | | | | | [address] | BIOLOGICAL MESH | | | | | [place], [place] | | | | | | [address] | | | | | | [phone] | | | | | | | | +--------+ + + + + | 09/15/ | Office | Cardiology | Tiny, Randell, | | | 2019 | Visit | | [address] | | | | | | [place] | | | | | | [address] | | | | | | [phone] | | | | | | | | +--------+ + + + + documented as of this encounter Visit Diagnoses Not on filedocumented in this encounter"
--- OUTSIDE RECORDS SUMMARY | ~2019-06-25 | XMS | Encounter Summary ---
[...] + | Katalina Padilla | ECON | [address] | | | | | [place], [place] | | | | | [address] | | + + + + + | Ellie Vang | ECON | Unknown | | + + + + + Care Team Providers + +------+ + | Care Crystal Flat Grinder Name | Role | Phone | + +------+ + | Fadi Goodrich DO | PCP | | + +------+ + Encounter Details +--------+ + + + + | Date | Type | Department | Care Team | Description | +--------+ + + + + | 08/22/ | Abstract | Cardiology | Randell Fransk, | | | 2013 | | Preventive at [facility] | MD [address] | | | | | [address] | [address] [place], [place] | | | | | Mailcode: [facility] | [address] | | | | | [facility] | [phone] | | | | | and Healing, | | | | | | [address] | | | | | | [place], [place] | | | | | | [address] | | | | | | [phone] | | | +--------+ + + + [...] [place] | | | | | | [address] | | | | | | [phone] | | | | | | | [...] [place] | | | | | | [address] | | | | | | [phone] | | | | | | | | +--------+ + + + + | 09/15/ | Office | Cardiology | Randell Franks, | | | 2019 | Visit | | [address] | | | | | | [address] [place], [place] | | | | | | [address] | | | | | | [phone] | | | | | | | | +--------+ + + + + documented as of this encounter Visit Diagnoses Not on filedocumented in this encounter"
--- OUTSIDE RECORDS SUMMARY | ~2019-06-25 | XMS | Encounter Summary ---
Demographics + + + | Address | [address] | | | [place] [address] | + + + | Home Phone [...] [place], [place] | | | | | [address] | | + + + + + | Ellie Vang | ECON | Unknown | | + + + + + Care Team Providers + +------+ + | Care Surveyor Hydrographic Name | Role | Phone | + [...] + + | 11/05/ | Hospital | [facility] 14C [address] | Joseph An | | | 2016 - | Encounter | [address] | MD Birgit [address] [facility] | | | | | 14C [facility] | [address] | | | 11/20/ | | [place], [place] | [place], [place] | | | 2016 | | [address] | [address] | | | | | [phone] | [phone] | | | | | | | | | | | | Ana, | | | | | | MD Briana [address] | | | | | | [address] | | | | | | Rd [place], [place] | | | | | | [address] | | | | | | [phone] | | | | | | | | | | | | Carmelina Tucker, | | | | | | JEFFREY-Aimee [address] | | | | | | [address] | | | | | | [place], [place] | | | | | | [address] | | | | | | [phone] | | | | | | | | | | | | Charley Lacey MD | | | | | | Jose Scott MD | | | | | | [address] | | | | | | [address] | | | | | | [place], [place] | | | | | | [address] | | | | | | [phone] | | | | | | | | | | | | Mannie Larkin MD | | | | | | [address] | | | | | | [address] [place], | | | | | | [place] [address] | | | | | | [phone] | | | | | | | | | | | | Tyrone Adrian MD | | | | | | [address] | | | | | | [address] [place], | | | | | | [place] [address] | | | | | | [phone] | | | | | | | [...] did want her to follow up with warehouse person in [place]. She should continue working towards bariatric surgery wh ich will ultimately put less stress on her heart. -Continue torsemide 80mg BID -Increase potassium supplementation to KCl 40mg BID -Daily weights and strict 2g Na 2L fluid restricted diet -Close followup with Dr. Goodrich (appt on 11/25 at 11AM) -Needs followup with cardiology in [place] #Left lower extremity DVT #Presumed PE Asymmetric left lower extremity pain and swelling was suspicious for DVT and confirmed with duplex ultrasound. Did not pursue CTA as it was decided that it would not acid changer . Started anticoagulation bridge with heparin [...] mouth once daily. , Historical Med CALCIUM [id number]-[id number]-GENIS ORAL Take 2 tablets by mouth two [...] Cyndi Meier Cardiology [facility]est[facility] Failure at [facility] Cardiology Additional Instructions/Orders: Diet Diabetic (Consistent Carbohydrate) [...] Good Yosef Segovia MD PGY-1 Internal Medicine [id number] INPATIENT FACULTY PROGRESS NOTE - GM 1 [...] (HCC) 15) Candidal intertrigo Tyrone Adrian MD [facility] 14C tennis ball cover cementer Division of Hospital Medicine Department of Medicine [address] [place] [address] [facility] DEPARTMENT: Hosp- [id number] Place of Service: Date of Service: 11/21/2015 CSN: [id number] Modifiers:GC Resident Involved: Yes Suggested CPT: 48421 Discharge Management < 30 minute documented in this encou nter Medications at Time of Discharge + + + +---------+--------+ + | Medication | Sig | Dispensed | Refills | Start | End Date | | | | | | Date | | + + + +---------+--------+ + | CALCIUM | Take 2 tablets by | | 0 | | | | [id number]&[id number]-LLR03-GEN | mouth two times | | | [...] (HCC) 15) Candidal intertrigo Tyrone Adrian MD [facility] 14C tennis ball cover cementer Division of Hospital Medicine Department of Medicine [facility] [address] [place] [address] [facility] DEPARTMENT: Hosp- [id number] Place of Service: [facility] Date of Service: 11/20/2015 CSN: [id number] Modifiers:GC Resident Involved: Yes Suggested CPT: 62951 Subsequent Visit Exp Prob Foc/Mod Complexity 25 min Colleen Tello - 016 6:49 AM PDT PHYSICIAN COLLEGE ADMINISTRATOR STUDENT PROGRESS NOTE FOR EDUCATIONAL PURPOSES ONLY [...] of ovarian cysts or menses related. Contact MANAGER WIRELESS if TV-US i s ordered. - TV-US [...] - topiramate 200mg po bid JEFFREY Gee-S2 [facility] PA Student Feeding: <2L fluid, Diabetic diet, >2g na Analgesia: APAP, gabapentin, hydrocodone Thromboembolic prophylaxis: Heparin/warfarin Glycemic control: moderate ISS Mobility: Encourage walking and movement Discharge: Expect hospital stay another 2-3 days with PCP FU (Dr. Goodrich) on Saturday 11/25 @ 1 1 am. - Referral to Center [facility]ier Code status: FULL Associated attestation - Juliette Yosef Pryor - 11/20/2015 7:50 PM PDTI have read the [facility] t note by PA student Dara [...] PCP Yosef Segovia MD PGY-1 Internal Medicine [id number] Tyrone Adrian MD - 11/19/2015 11:51 AM [...] if the PO works) Tyrone Adrian MD [facility] 14C tennis ball cover cementer Division of Hospital Medicine Department of Medicine [facility] [address] [place] [address] [facility] DEPARTMENT: Hosp- [id number] Place of Service: Date of Service: 11/19/2015 CSN: [id number] Modifiers:GC Resident Involved: Yes Suggested CPT: 50080 Subsequent Visit Exp Prob Foc/Mod Complexity 25 min olleen Diamond - 016 6:24 AM PDT PHYSICIAN COLLEGE ADMINISTRATOR STUDENT PROGRESS NOTE FOR EDUCATIONAL PURPOSES ONLY [...] of ovarian cysts or menses related. Contact MANAGER WIRELESS if TV-US i s ordered. - TV-US [...] can. Yosef Segovia MD PGY-1 Internal Medicine [id number] Tyrone Adrian MD - 11/18/2015 2:01 PM [...] (HCC) 15) Candidal intertrigo Tyrone Adrian MD [facility] 14C tennis ball cover cementer Division of Hospital Medicine Department of Medicine [facility] [address] [place] [address] [facility] DEPARTMENT: Hosp- [id number] Place of Service: Date of Service: 11/18/2015 CSN: [id number] Modifiers:GC Resident Involved: Yes Suggested CPT: 35517 Subsequent Visit Exp Prob Foc/Mod Complexity 25 [...] plan. Yosef Segovia MD PGY-1 Internal Medicine [id number] signed by Yosef Segovia at 11/18/2015 11:52 [...] (HCC) 15) Candidal intertrigo Tyrone Adrian MD [facility] 14C tennis ball cover cementer Division of Hospital Medicine Department of Medicine [facility] [place] [address] [place] [address] [facility] DEPARTMENT: Hosp- [id number] Place of Service: - Date of Service: 11/17/2015 CSN: [id number] Modifiers:GC Resident Involved: Yes Suggested CPT: 53347 Subsequent Visit Exp Prob Foc/Mod Complexity 25 min lowersColleen - 016 6:40 AM PDT PHYSICIAN COLLEGE ADMINISTRATOR STUDENT PROGRESS NOTE FOR EDUCATIONAL PURPOSES ONLY [...] - topiramate 200mg po bid JEFFREY Gee-S2 [facility] PA Student Feeding: <2L fluid, Diabetic [...] can Yosef Segovia MD PGY-1 Internal Medicine [id number] Tyrone Adrian MD - 11/16/2015 4:59 PM PDTINPATIENT FACULTY PROGRESS NOTE - GM 1 Author; Tyrone dArian MD Attending Physician: Tyrone Adrian MD Hospital [...] (HCC) 15) Candidal intertrigo Tyrone Adrian MD [facility] 14C tennis ball cover cementer Division of Hospital Medicine Department of Medicine [facility] [address] [place] [address] [facility] DEPARTMENT: Hosp- [id number] Place of Service: Date of Service: 11/16/2015 CSN: [id number] Modifiers:GC Resident Involved: Yes Suggested CPT: 80326 Subsequent Visit Exp Prob Foc/Mod Complexity 25 min olleen Diamond - 016 6:43 AM PDT PHYSICIAN COLLEGE ADMINISTRATOR STUDENT PROGRESS NOTE FOR EDUCATIONAL PURPOSES ONLY [...] - topiramate 200mg po bid JEFFREY Gee-S2 [facility] PA Student Feeding: <2L fluid, Diabetic [...] assistance of Grisel Pearl. Patient lives i [facility] which is quite a distance to travel to and from [place]. We would ideally arran ge cardiac follow [...] (HCC) 15) Candidal intertrigo Tyrone Adrian MD [facility] 14C tennis ball cover cementer Division of Hospital Medicine Department of Medicine [facility] [address] [place] [address] [facility] DEPARTMENT: Hosp- [id number] Place of Service: [facility] [id number] Date of Service: 11/15/2015 CSN: [id number] Modifiers:GC Resident Involved: Yes Suggested CPT: 02729 Subsequent Visit Detailed/High complexity 35 min lColleen goff - 016 6:33 AM PDT PHYSICIAN COLLEGE ADMINISTRATOR STUDENT PROGRESS NOTE FOR EDUCATIONAL PURPOSES ONLY [...] last 8 days Intake 9571.5 ml Output 20233 ml Net since Admission -18096.5 ml -25.938 L = 57.0636 lbs Constitutional: [...] - topiramate 200mg po bid JEFFREY Gee-S2 [facility] PA Student Feeding: <2L fluid, Diabetic diet, >2g na Analgesia: APAP, gabapentin, hydrocodone Thromboembolic prophylaxis: Heparin/warfarin Glycemic control: moderate ISS Mobility: Encourage walking and movement Discharge: Expect hospital stay another 3-5 days with diuresis until more euvolemic and R h eart cath can be completed. Code status: FULL Associated attestation - [place], Yosef Pryor - 11/15/2015 2:59 PM PDTI [facility] Dara [...] can Yosef Segovia MD PGY-1 Internal Medicine [id number] Tyrone Adrian MD - 11/14/2015 4:16 PM [...] (HCC) 15) Candidal intertrigo Tyrone Adrian MD [facility] 14C tennis ball cover cementer Division of Hospital Medicine Department of Medicine [address] [place] [address] [facility] DEPARTMENT: Hosp- [id number] Place of Service: Date of Service: 11/14/2015 CSN: [id number] Modifiers:GC Resident Involved: Yes Suggested CPT: 58707 Subsequent Visit Exp Prob Foc/Mod Complexity 25 min olleen Diamond - 016 6:42 AM PDT PHYSICIAN COLLEGE ADMINISTRATOR STUDENT PROGRESS NOTE FOR EDUCATIONAL PURPOSES ONLY [...] - topiramate 200mg po bid JEFFREY Gee-S2 [facility] PA Student Feeding: <2L fluid, Diabetic [...] outpatient Yosef Segovia MD PGY-1 Internal Medicine [id number] Tyrone Adrian MD - 11/13/2015 4:06 PM [...] (HCC) 15) Candidal intertrigo Tyrone Adrian MD [facility] 14C tennis ball cover cementer Division of Hospital Medicine Department of Medicine [facility] [place] [address] [place] [address] [facility] DEPARTMENT: Hosp- [id number] Place of Service: [facility] Date of Service: 11/13/2015 CSN: [id number] Modifiers:GC Resident Involved: Yes Suggested CPT: 48200 Subsequent Visit Detailed/High complexity 35 min lfelixsColleen - 016 6:36 AM PDT PHYSICIAN COLLEGE ADMINISTRATOR STUDENT PROGRESS NOTE FOR EDUCATIONAL PURPOSES ONLY [...] - topiramate 200mg po bid JEFFREY Gee-S2 [facility] PA Student Feeding: <2L fluid, Diabetic [...] VTE. Yosef Segovia MD PGY-1 Internal Medicine [id number] Tyrone Adrian MD - 11/12/2015 1:59 PM [...] 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, J UTILITIES MANAGER, at this point not definitive Plan: [...] ongoing 12) Candidal intertrigo Tyrone Adrian MD [facility] 14C tennis ball cover cementer Division of Hospital Medicine Department of Medicine [facility] [address] [place] [address] [facility] DEPARTMENT: Hosp- [id number] Place of Service: - Date of Service: 11/12/2015 CSN: [id number] Modifiers:GC Resident Involved: Yes Suggested CPT: 02082 Subsequent Visit Detailed/High complexity 35 min lColleen goff - 016 6:31 AM PDT PHYSICIAN COLLEGE ADMINISTRATOR STUDENT PROGRESS NOTE FOR EDUCATIONAL PURPOSES ONLY INPATIENT PROGRESS NOTE PATIENT INFORMATION Patient Name: Elzbieta Cristina Date of : 1975 Date of Admission: 11/06/2015 PCP: Fadi Goodrich DO Room/Bed: [facility]/ Attending Provider: Mannie Larkin MD Encounter [...] - topiramate 200mg po bid JEFFREY Gee-S2 [facility] PA Student Feeding: <2L fluid, Diabetic [...] disease. Yosef Segovia MD PGY-1 Internal Medicine [id number] Mannie Larkin MD - 11/11/2015 9:19 PM [...] diuresis then RHC Mannie Larkin MD Clinical Manager Consumer, Internal Medicine Pager [phone] ristalColleen martines - 10/25 6:40 AM PDT PHYSICIAN COLLEGE ADMINISTRATOR STUDENT PROGRESS NOTE FOR EDUCATIONAL PURPOSES ONLY [...] - topiramate 200mg po bid JEFFREY Gee-S2 [facility] PA Student Feeding: <2L fluid, Diabetic [...] pain Yosef Segovia MD PGY-1 Internal Medicine [id number] Maria Eugenia Leiav RCP - 11/11/2015 6:39 AM PDTOvernight oximetry [...] another 5-7 days Mannie Larkin MD Clinical Manager Consumer, Internal Medicine Pager [phone] Yosef Fang T - 7:24 AM PDT [...] plan. Yosef Segovia MD PGY-1 Internal Medicine [id number] signed by Yosef Segovia at 11/10/2015 2:50 [...] R heart cath onc e a bit lean sensei. In terms of AMARA - does not tolerate CPAP historically. Likely CPAP will be ve ry important for her going forward. Will try overnight oximetry here to assess severity. Discharge planning:Anticipate several days in house. I spent >35 min of which >50% was spent in counseling and coordination of care. Briana Perez MD [facility] Division of Hospital Medicine Grisel Mcghee [...] Maker Primary Surrogate Decision Maker Katalina kim [phone] Advanced Directives Existence of Advanced Directive Reviewed: No- Has Interest (11/09/15 1022) Advanced Directives Reviewed Comments: I gave a copy of advance directives (11/09/15 1022) KRISHNA Huertas NP [facility] [address]C [address] [facility] [address] [place] [address] lfelixColleen martines - 6:41 AM PDT PHYSICIAN COLLEGE ADMINISTRATOR STUDENT PROGRESS NOTE FOR EDUCATIONAL PURPOSES ONLY [...] of acute blood loss and anemia of finished goods stock clerk ela dz and thalassemia is less likely. [...] AM Yosef Segovia MD PGY-1 Internal Medicine [id number] Briana Perez MD - 11/08/2015 2:01 PM [...] and coordination of care. Briana Perez MD [facility] Division of Hospital Medicine ara Colleen - 11/08/2015 6:26 AM PDT PHYSICIAN COLLEGE ADMINISTRATOR STUDENT PROGRESS NOTE FOR EDUCATIONAL PURPOSES ONLY [...] po bid (topamax, nerve pain) JEFFREY Gee-S2 [facility] PA Student Feeding: <2L fluid, Diabetic [...] Hair Md, MSc Internal Medicine PGY2 Pager [phone] Kwadwo Freire - 11/07/2015 2:05 PM PDTTransthoracic [...] plan. Yosef Segovia MD PGY-1 Internal Medicine [id number] lfelixs Colleen - 016 8:43 AM PDT PHYSICIAN COLLEGE ADMINISTRATOR STUDENT PROGRESS NOTE FOR EDUCATIONAL PURPOSES ONLY [...] perfusion. - consider US to evaluate liver (PFKW-ouj-lvvatgcuj fatty liver dz) and look for ascites. [...] movement Code status: [facility] Plan of Treatment +--------+ + + [...] Rd | | | | | | [place], [place] | | | | | | [address] | | | | | | [phone] | | | | | | | | +--------+ + + + + | 08/19/ | Surgery | Surgery | Chilo, | OPEN VENTRAL HERNIA | | 2019 | | | MD Jorje [address] | REPAIR WITH | | | | | [address] | BIOLOGICAL MESH | | | | | [facility] [place] | | | | | | [address] | | | | | | [phone] | | | | | | | | +--------+ + + + + | 09/15/ | Office | Cardiology | Randell Franks, | | | 2019 | Visit | | [address] | | | | | | [place], [place] | | | | | | [address] | | | | | | [phone] | | | | | | | [...] AMES | [address] | [place], [place] | | | L[place]PEZ POINT OF CARE | [facility] | [address] | | | TESTS | | | [...] MEDICAL CENTER | [address] | [place] [address] | | | SERVICES, CORE | PARK [...] [facility] | [address] | [place] [address] | | | SERVICES, CORE | LESLY [...] | + + + + + | [facility] | [address] | [place] [address] | | | SERVICES, CORE | PARK [...] [facility] | [address] | [place], [place] | | | JUSTINE DAWN OF CARE | [address] | [address] | | | TESTS | | | [...] [facility] | [address] | [place], [place] | | | JUST[place]WN OF CARE | [facility] | [address] | | | TESTS | | | [...] [facility]ES | [address] | [place], [place] | | | JUSTINE DAWN OF CARE | [address] | [address] | | | TESTS | | | [...] [facility] | [address] | [place], [place] | | | L[place]PEZ POINT OF CARE | [address] | [address] | | | TESTS | | | [...] - [facility] | [address] | [place], [place] | | | L[place] POINT OF CARE | [address] | [address] | | | TESTS | | | [...] [facility] | [address] | [place] [address] | | | SERVICES, CORE | PARK [...] | + + + + + | [facility] | [address] | [place] [address] | | | CLAIRE, LYDIA | LESLY [...] [facility] | [address] | [place] [address] | | | SERVICES, CORE | PARK [...] the MDRD equation recommended by the | [facility] | | National Kidney Disease Education [...] [facility] | [address] | [place] [address] | | | LYDIA RANGEL | LESLY [...] [facility] | [address] | [place] | | | L[place] POINT OF CARE | [address] | [address] | | | TESTS | | | [...] AMES | [address] | [place] | | | L[place] POINT OF CARE | [address] | [address] | | | TESTS | | | [...] [facility] | [address] | [place] [address] | | | SERVICES, CORE | LESLY [...] [facility] | [address] | [place] [address] | | | SERVICES, CORE | PARK [...] MEDICAL CENTER | [address] | [place] [address] | | | CLAIRE, LYDIA | LESLY [...] [facility] | [address] | [place], [place] | | | JUSTINE DAWN OF [facility] | [address] | [address] | | | TESTS | | | [...] [facility] | [address] | [place], [place] | | | JUSTINE DAWN OF JAKY | [facility] | [address] | | | TESTS | | | [...] [facility] | [address] | [place] | | | L[place] POINT OF CARE | [address] | [address] | | | TESTS | | | [...] [facility] | [address] | [place], [place] | | | [place] OF [facility] | [address] | [address] | | | TESTS | | | [...] | + + + + + | [facility] | [address] | [place] [address] | | | SERVICES, CORE | LESLY [...] [facility] | [address] | [place] [address] | | | SERVICES, CORE | LESLY [...] [facility] | [address] | [place], [place] | | | L[place]Z POINT OF CARE | [address] | [address] | | | TESTS | | | [...] AMES | [address] | [place], [place] | | | L[place] POINT OF CARE | [address] | [address] | | | TESTS | | | [...] MEDICAL CENTER | [address] | [place] [address] | | | SERVICES, LYDIA | LESLY [...] [facility] | [address] | [place] [address] | | | LYDIA RANGEL | LESLY [...] [facility] | [address] | [place] [address] | | | SERVICES, CORE | PARK [...] + | [facility] | [address] | [place] [address] | | | SERVICES, CORE | PARK [...] [facility] | [address] | [place], [place] | | | JUSTINE DAWN OF [place]Y | [facility] | [address] | | | TESTS | | | [...] (H) | 60 - 99 mg/dL | [facility] - | | | GLUCOSE, [...] [facility] | [address] | [place] | | | L[place]PEZ POINT OF CARE | [address] | [address] | | | TESTS | | | [...] AMES | [address] | [place], [place] | | | JUSTINE DAWN OF J[place]Y | [address] | [address] | | | TESTS | | | [...] - [place] | [address] | [place] | | | JUST[place] OF [facility] | [facility] | [address] | | | TESTS | | | [...] [facility] | [address] | [place] [address] | | | SERVICES, CORE | PARK [...] [facility] | [address] | [place] [address] | | | SERVICES, CORE | PARK [...] MEDICAL CENTER | [address] | [place] [address] | | | SERVICES, CORE | PARK [...] MEDICAL CENTER | [address] | [place] [address] | | | SERVICES, CORE | LESLY [...] [facility] | [address] | [place] [address] | | | SERVICES, CORE | PARK [...] MEDICAL CENTER | [address] | [place] [address] | | | SERVICES, CORE | LESLY [...] [facility] | [address] | [place] | | | L[place]PEZ POINT OF CARE | [address] | [address] | | | TESTS | | | [...] [facility] | [address] | [place] | | | JUSTINE DAWN OF CARE | [facility] | [address] | | | TESTS | | | [...] [facility] | [address] | [place] | | | L[place]PE[place] POINT OF CARE | [address] | [address] | | | TESTS | | | [...] + + | [facility] | [address] | [place] [address] | | | SERVICES, CORE | LESLY [...] - [facility] | [address] | [place] | | | L[place] POINT OF CARE | [address] | [address] | | | TESTS | | | [...] [facility] | [address] | [place] [address] | | | SERVICES, CORE | PARK [...] MEDICAL CENTER | [address] | [place] [address] | | | SERVICES, CORE | LESLY [...] [facility] | [address] | [place] [address] | | | SERVICES, CORE | PARK [...] | + + + + + | [facility] | [address] | [place] [address] | | | SERVICES, LYDIA | LESLY [...] [facility] | [address] | [place] | | | JUSTINE DAWN OF CARE | [address] | [address] | | | TESTS | | | [...] [facility] | [address] | [place] [address] | | | LYDIA RANGEL | LESLY [...] (H) | 60 - 99 mg/dL | [facility] - | | | GLUCOSE, [...] [facility] | [address] | [place] | | | L[place] POINT OF CARE | [address] | [address] | | | TESTS | | | [...] + | [facility] | [address] | [place] [address] | | | SERVICES, CORE | LESLY [...] [facility] | [address] | [place] | | | L[place] POINT OF CARE | [address] | [address] | | | TESTS | | | [...] - [place] | [address] | [place] | | | L[place] POINT OF CARE | [address] | [address] | | | TESTS | | | [...] [facility] | [address] | [place] [address] | | | SERVICES, CORE | LESLY [...] [facility] | [address] | [place] [address] | | | SERVICES, CORE | PARK [...] [facility] | [address] | [place] [address] | | | SERVICES, CORE | PARK [...] MEDICAL CENTER | [address] | [place] [address] | | | SERVICES, CORE | LESLY [...] [facility] | [address] | [place] [address] | | | SERVICES, CORE | LESLY [...] [facility] | [address] | [place] | | | L[place] POINT OF CARE | [address] | [address] | | | TESTS | | | [...] + + | [facility] | [address] | [place] [address] | | | SERVICES, CORE | LESLY [...] [facility] | [address] | [place] | | | JUSTINE DAWN OF CARE | [facility] | [address] | | | TESTS | | | [...] [facility] | [address] | [place] | | | L[place] POINT OF CARE | [address] | [address] | | | TESTS | | | [...] [facility] | [address] | [place] [address] | | | SERVICES, LYDIA | LESLY [...] [facility] | [address] | [place], [place] | | | JUSTINE DAWN OF CARE | [facility] | [address] | | | TESTS | | | [...] [facility] | [address] | [place] [address] | | | SERVICES, CORE | PARK [...] [facility] | [address] | [place] [address] | | | SERVICES, CORE | PARK [...] + | [facility] | [address] | [place] [address] | | | SERVICES, CORE | LESLY [...] [facility] | [address] | [place] [address] | | | SERVICES, CORE | LESLY [...] KWAKU | [address] | [place], [place] | | | JUSTINE DAWN OF JAKY | [facility] | [address] | | | TESTS | | | [...] YAKOVAM | [address] | [place], [place] | | | JUSTINE DAWN OF JAKY | [facility] | [address] | | | TESTS | | | [...] (H) | 60 - 99 mg/dL | [facility] - | | | GLUCOSE, [...] AMES | [address] | [place], [place] | | | [facility] OF CARE | [address] | [address] | | | TESTS | | | [...] KWAKU | [address] | [place], [place] | | | JUSTINE DAWN OF JAKY | [facility] | [address] | | | TESTS | | | [...] [facility] | [address] | [place] [address] | | | SERVICES, CORE | PARK [...] [facility] | [address] | [place] [address] | | | SERVICES, CORE | PARK [...] [facility]ICAL CENTER | [address] | [place] [address] | | | SERVICES, CORE | PARK [...] MEDICAL CENTER | [address] | [place] [address] | | | SERVICES, CORE | LESLY [...] [facility] | [address] | [place] [address] | | | SERVICES, CORE | PARK [...] + | [facility] | [address] | [place] [address] | | | CLAIRE, LYDIA | LESLY [...] [facility] | [address] | [place] [address] | | | LYDIA RANGEL | LESLY [...] | [facility] | [address] | [place] [address] | | | SERVICES, LYDIA | LESLY [...] YAK[facility]AM | [address] | [place], [place] | | | JUSTINE DAWN OF CARE | [facility] | [address] | | | TESTS | | | [...] (H) | 60 - 99 mg/dL | [facility] - | | | GLUCOSE, [...] KWAKU | [address] | [place], [place] | | | [facility] CARE | [address] | [address] | | | TESTS | | | [...] AMES | [address] | [place] | | | JUSTINE DAWN OF JAKY | [facility] | [address] | | | TESTS | | | [...] [facility] | [address] | [place], [place] | | | [facility] CARE | [address] | [address] | | | TESTS | | | [...] [facility] | [address] | [place] [address] | | | SERVICES, CORE | PARK [...] [facility] | [address] | [place] [address] | | | SERVICES, CORE | PARK [...] MEDICAL CENTER | [address] | [place] [address] | | | SERVICES, CORE | LESLY [...] [facility] | [address] | [place] [address] | | | SERVICES, CORE | LESLY [...] AMES | [address] | [place] | | | JUSTINE DAWN OF JAKY | [facility] | [address] | | | TESTS | | | [...] [facility] | [address] | [place] [address] | | | CLAIRE, LYDIA | LESLY [...] | 1.014 | 1.005 - 1.030 | [facility] | | | GRAVITY | | | [...] [facility] | [address] | [place] [address] | | | SERVICES, CORE | PARK [...] [facility] | [address] | [place] [address] | | | SERVICES, CORE | PARK [...] [facility] | [address] | [place] [address] | | | LYDIA RANGEL | LESLY [...] Y[facility] | [address] | [place], [place] | | | JUSTINE DAWN OF JAKY | [facility] | [address] | | | TESTS | | | [...] (H) | 60 - 99 mg/dL | [facility] - | | | GLUCOSE, [...] KWAKU | [address] | [place], [place] | | | JUSTINE DAWN OF [facility] | [address] | [address] | | | TESTS | | | [...] + | [facility] | [address] | [place] [address] | | | SERVICES, LYDIA | LESLY [...] [facility] | [address] | [place], [place] | | | [facility]ARE | [address] | [address] | | | TESTS | | | [...] [facility] | [address] | [place] [address] | | | SERVICES, CORE | LESLY [...] [facility] | [address] | [place] [address] | | | SERVICES, CORE | PARK [...] MEDICAL CENTER | [address] | [place] [address] | | | SERVICES, CORE | LESLY [...] [facility] | [address] | [place] [address] | | | SERVICES, CORE | LESLY [...] (H) | 60 - 99 mg/dL | [facility] - | | | GLUCOSE, [...] AMES | [address] | [place] | | | [facility]ARE | [address] | [address] | | | TESTS | | | [...] + + | [facility] | [address] | [place] [address] | | | LYDIA RANGEL | LESLY [...] - [facility] | [address] | [place] | | | [facility] CARE | [address] | [address] | | | TESTS | | | [...] AMES | [address] | [place] | | | [facility] [facility]ARE | [address] | [address] | | | TESTS | | | [...] [facility]ICAL [facility]ENTER | [address] | [place] [address] | | | LYDIA RANGEL | LESLY [...] [facility] | [address] | [place] | | | [facility] [facility]ARE | [address] | [address] | | | TESTS | | | [...] [facility] | [address] | [place] [address] | | | SERVICES, CORE | PARK [...] [facility] | [address] | [place] [address] | | | SERVICES, CORE | LESLY [...] | [facility] | [address] | [place] [address] | | | SERVICES, CORE | LESLY [...] [facility] | [address] | [place] [address] | | | SERVICES, CORE | PARK [...] [facility] | [address] | [place] [address] | | | SERVICES, CORE | LESLY [...] + + + | [facility] | [address] | [place] [address] | | | LYDIA RANGEL | LESLY [...] [facility] | [address] | [place], [place] | | | JUSTINE DAWN OF CARE | [address] | [address] | | | TESTS | | | [...] AMES | 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 Catheter lot number: [id number] with a length of | | | [...] [facility] | [address] | [place] | | | JUSTINE DAWN OF CARE | [address] | [address] | | | TESTS | | | [...] [facility] | [address] | [place] [address] | | | SERVICES, CORE | PARK [...] - [facility] | [address] | [place], [place] | | | [facility] CARE | [address] | [address] | | | TESTS | | | [...] [facility] | [address] | [place] [address] | | | SERVICES, CORE | PARK [...] [facility]ICAL CENTER | [address] | [place] [address] | | | SERVICES, CORE | PARK [...] [facility] | [address] | [place] [address] | | | LYDIA RANGEL | LESLY [...] [facility]ICAL [facility]ENTER | [address] | [place] [address] | | | SERVICES, CORE | PARK [...] + + | [facility] | [address] | [place] | | | JUSTINE DAWN OF CARE | [address] | [address] | | | TESTS | | | [...] KWAKU | [address] | [place] | | | [place] [facility] | [address] | [address] | | | TESTS | | | [...] [facility]ICAL [facility]ENTER | [address] | [place] [address] | | | SERVICES, CORE | LESLY [...] [facility] | [address] | [place] [address] | | | SERVICES, CORE | PARK [...] [facility] | [address] | [place] [address] | | | SERVICES, CORE | LESLY [...] (H) | 60 - 99 mg/dL | [facility] - | | | GLUCOSE, [...] AMES | [address] | [place] | | | [facility] [facility] OF CARE | [address] | [address] | | | TESTS | | | [...] [facility] | [address] | [place] | | | [facility] [facility]ARE | [address] | [address] | | | TESTS | | | [...] [facility] | [address] | [place] | | | JUSTINE DAWN OF JAKY | [address] | [address] | | | TESTS | | | [...] + | [facility] | [address] | [place] [address] | | | SERVICES, CORE | PARK [...] + | [facility] | [address] | [place] [address] | | | SERVICES, LYDIA | LESLY [...] [facility] | [address] | [place] [address] | | | SERVICES, CORE | PARK [...] [facility] | [address] | [place] [address] | | | LYDIA RANGEL | PARK [...] [facility]ICAL CENTER | [address] | [place] [address] | | | SERVICES, CORE | LESLY [...] [facility] | [address] | [place] [address] | | | SERVICES, CORE | PARK [...] [facility]ICAL [facility]ENTER | [address] | [place] [address] | | | SERVICES, CORE | LESLY [...] [facility] | [address] | [place] | | | [facility]ARE | [address] | [address] | | | TESTS | | | [...] [facility] | [address] | [place] [address] | | | SERVICES, CORE | LESLY [...] (H) | 60 - 99 mg/dL | [facility] - | | | GLUCOSE, [...] AMES | [address] | [place] | | | JUSTINE DAWN OF CARE | [address] | [address] | | | TESTS | | | [...] [facility] | [address] | [place] | | | JUSTINE DAWN OF CARE | [address] | [address] | | | TESTS | | | [...] [facility] | [address] | [place], [place] | | | CARDIOLOGY | [address] | [address] | | + + + + + [...] KWAKU | [address] | [place] | | | [place] OF [facility] | [address] | [address] | | | TESTS | | | [...] [facility] | [address] | [place] [address] | | | CLAIRE, CORE | LESLY [...] [facility] | [address] | [place] [address] | | | SERVICES, LYDIA | LESLY [...] [facility] | [address] | [place] [address] | | | SERVICES, CORE | LESLY [...] - KWAKU | [address] | [place] | | | [place] OF [facility] | [facility] | [address] | | | TESTS | | | [...] [facility] | [address] | [place] [address] | | | SERVICES, CORE | LESLY [...] [facility] | [address] | [place] [address] | | | SERVICES, CORE | PARK [...] [facility] | [address] | [place] [address] | | | SERVICES, CORE | PARK [...] [facility]ICAL CENTER | [address] | [place] [address] | | | SERVICES, CORE | LESLY [...] [facility] | 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 | [place], [place] | | | [facility]INT OF CARE | [address] | [address] | | | TESTS | | | [...] AMES | [address] | [place] | | | [facility] [facility] CARE | [address] | [address] | | | TESTS | | | [...] | + + + + + | [facility] | [address] | [place] [address] | | | SERVICES, CORE | LESLY [...] [facility] OF | [address] | [place], [place] | | | CARDIOLOGY | [address] | [address] | | + + + + + [...] [facility] | [address] | [place] [address] | | | SERVICES, LYDIA | PARK [...] + | [facility] | [address] | [place] [address] | | | SERVICES, CORE | LESLY [...] [facility] | [address] | [place] [address] | | | SERVICES, CORE | PARK [...] MEDICAL CENTER | [address] | [place] [address] | | | SERVICES, CORE | [address] | | | + + + + + ED INFORMATION EXCHANGE (11/06/2015 1:26 PM PDT) + + + + + + | Component | Value | Ref Range | Performed | Pathologist | | | | | At | Signature | + + + + + + | [facility] | [id number] | [facility] | | | | [id number] | | MEDICAL | | | | [...] | ---- 11/06/2015 | | | 13:25 [facility] | | | [id number]. 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 | | | | | | --- | | + + + + + + + + | Performing | Address | City/State/Zipcode | Phone Number | | Organization | | | | + + + + + | [facility] | [address], | [place], [place] | [phone] | | [employer] | [address] | [address] | | + + + + + [...] | | | oral, ONCE, 1 dose, [facility] 11/08/15 | | PM PDT | [...] | | | | ONCE, 1 dose, [facility] 11/08/15 at 1900 | | PM [...]
--- OUTSIDE RECORDS SUMMARY | ~2019-06-25 | XMS | Encounter Summary ---
Demographics + + + | Address | [address] | | | [place] [address] | + + + | Home Phone [...] [place], [place] | | | | | [address] | | + + + + + | Ellie Vang | ECON | Unknown | | + + + + + Care Team Providers + +------+ + | Care Office Nurse Practitioner Name | Role | Phone [...] | | | | | obesity | [place], [place] | | | | | | (HCC) | [address] | | | | | | Procedures | Phone: | | | | | | PHYSICAL | | | | | | | THERAPY | Fax: | | | | | | REFERRAL | [phone] | | +--------+--------+ + + + + Encounter Details +--------+ + + + + | Date | Type | Department | Care Team | Description | +--------+ + + + + | 06/22/ | Soldering Machine Setter | Digestive Health | Ion Pandey, | Pre-op evaluation | | 2016 | | Center at [facility] [address] | [address] | (Primary Dx); Morbid | | | | [address] | [place], [place] | obesity (HCC) | | | | Mailcode: Center | [address] | | | | | for Health and | | | | | | Healing, [address] | | | | | | [place], [place] | | | | | | [address] | | | | | | [phone] | | | +--------+ + + + [...] 2020 | Encounter | | MD Jorje [address] | | | | | | [address] | | | | | | [place], [place] | | | | | | [address] | | | | | | [phone] | | | | | | | | +--------+ + + + + | 08/19/ | Surgery | Surgery | Chilo, | OPEN VENTRAL HERNIA | | 2019 | | | MD Jorje [address] | REPAIR WITH | | | | | [address] | BIOLOGICAL MESH | | | | | [place], [place] | | | | | | [address] | | | | | | [phone] | | | | | | | | +--------+ + + + + | 09/15/ | Office | Cardiology | Randell Franks, | | | 2019 | Visit | | MD [address] | | | | | | [address] [place], [place] | | | | | | [address] | | | | | | [phone] | | | | | | | | +--------+ + + + + documented as of this encounter Visit Diagnoses + + | Diagnosis | + + | Pre-op evaluation - Primary Preoperative examination, unspecified | + + | Morbid obesity (HCC) Morbid obesity | + + documented in this encounter"
--- OUTSIDE RECORDS SUMMARY | ~2019-06-25 | XMS | Encounter Summary ---
Demographics + + + | Address | [address] | | | [place] [address] | + + + | Home Phone [...] [place], [place] | | | | | [address] | | + + + + + | Ellie Vang | ECON | Unknown | | + + + + + Care Team Providers + +------+ + | Care Manager Of Financial Name | Role | Phone | [...] | | | | | obesity | [place], [place] | | | | | | (HCC) | [address] | | | | | | Procedures | Phone: | | | | | | PHYSICAL | | | | | | | THERAPY | Fax: | | | | | | REFERRAL | [phone] | | +--------+--------+ + + + + Encounter Details +--------+ + + + + | Date | Type | Department | Care Team | Description | +--------+ + + + + | 06/22/ | Stenciler | Digestive Health | Ion Pandey, | Pre-op evaluation | | 2016 | | Center at [facility] [address] | [address] | (Primary Dx); Morbid | | | | [address] | [place], [place] | obesity (HCC) | | | | Mailcode: Center | [address] | | | | | for Health and | | | | | | Healing, [address] | | | | | | [place], [place] | | | | | | [address] | | | | | | [phone] | | | +--------+ + + + [...] 2020 | Encounter | | MD Jorje [address] | | | | | | [address] | | | | | | [place], [place] | | | | | | [address] | | | | | | [phone] | | | | | | | | +--------+ + + + + | 08/19/ | Surgery | Surgery | Chilo, | OPEN VENTRAL HERNIA | | 2019 | | | MD Jorje [address] | REPAIR WITH | | | | | [address] | BIOLOGICAL MESH | | | | | [place], [place] | | | | | | [address] | | | | | | [phone] | | | | | | | | +--------+ + + + + | 09/15/ | Office | Cardiology | Randell Franks, | | | 2019 | Visit | | MD [address] | | | | | | Ave [place], [place] | | | | | | [address] | | | | | | [phone] | | | | | | | | +--------+ + + + + documented as of this encounter Visit Diagnoses + + | Diagnosis | + + | Pre-op evaluation - Primary Preoperative examination, unspecified | + + | Morbid obesity (HCC) Morbid obesity | + + documented in this encounter"
--- OUTSIDE RECORDS SUMMARY | ~2019-06-25 | XMS | Encounter Summary ---
Demographics + + + | Address | [address] | | | [place] [address] | + + + | Home Phone [...] [place], [place] | | | | | [address] | | + + + + + | Ellie Vang | ECON | Unknown | | + + + + + Care Team Providers + +------+ + | Care Lan Manager Name | Role | Phone | [...] | 2016 | on | Center at [place] [address] | | | | | | [address] | | | | | | Mailcode: [place] | | | | | | for Health and | | | | | | [facility] [address] | | | | | | [place], [place] | | | | | | [address] | | | | | | [phone] | | | +--------+ + + + [...] Rd | | | | | | [place], [place] | | | | | | [address] | | | | | | [phone] | | | | | | | | +--------+ + + + + | 08/19/ | Surgery | Surgery | Chilo, | OPEN VENTRAL HERNIA | | 2019 | | | MD Demond [address] | REPAIR WITH | | | | | [address] | BIOLOGICAL MESH | | | | | [place], [place] | | | | | | [address] | | | | | | [phone] | | | | | | | | +--------+ + + + + | 09/15/ | Office | Cardiology | Randell Franks, | | | 2019 | Visit | | MD [address] | | | | | | [address] [place], [place] | | | | | | [address] | | | | | | [phone] | | | | | | | | +--------+ + + + + documented as of this encounter Visit Diagnoses Not on filedocumented in this encounter"
--- OUTSIDE RECORDS SUMMARY | ~2019-06-25 | XMS | Encounter Summary ---
Demographics + + + | Address | [address] | | | [place] [address] | + + + | Home Phone [...] + + | Author | [facility] | | | and Jeffana | + + + | Organization | [facility] | | | and Jeffana [...] Providers + +------+ + | Care Furniture Upholstery Mechanic Name | Role | Phone | [...] Encounter | [address] | [place] [address] [address] | | | | | [address] | [address] | | | | | [place], [place] | [place] [address] | | | | | [address] | [phone] | | | | | [phone] | | | +--------+ + + + [...]
--- OUTSIDE RECORDS SUMMARY | ~2019-06-25 | XMS | Encounter Summary ---
Demographics + + + | Address | [address] | | | [place] [address] | + + + | Home Phone [...] [place], [place] | | | | | [address] | | + + + + + | Ellie Vang | ECON | Unknown | | + + + + + Care Team Providers + +------+ + | Care Mortgage Banker Name | Role | Phone | [...] | | | | | essential | [address] | [address] | | | | | hypertension | [address], | Ave | | | | | Type II or | [address] | [place], [place] | | | | | unspecified | [place], [place] | [address] | | | | | type | [address] | Phone: | | | | | diabetes | Phone: | [phone] | | | | | mellitus | [phone] | Fax: | | | | | without | Fax: | [phone] | | | | | mention of | [phone] | | | | | | complication [...] | 2013 | Visit | Preventive at [facility] | [address] | mellitus (HCC) | | | | [address] | [facility] [place] | (Primary Dx); | | | | Mailcode: [facility] | [address] | Migraine headache | | | | [facility] | [phone] | | | | | and [place], | | | | | | [address] | | | | | | [place], [place] | | | | | | [address] | | | | | | [phone] | | | +--------+---------+ + + + [...] she is hypothyroid and put her on [place] Thyroid hormone replacement therapy. Her heart rate [...] [place] | | | | | | [address] | | | | | | [phone] | | | | | | | [...] [place] | | | | | | [address] | | | | | | [phone] | | | | | | | | +--------+ + + + + | 09/15/ | Office | Cardiology | Randell Franks, | | | 2019 | Visit | | [address] | | | | | | [place], [place] | | | | | | [address] | | | | | | [phone] | | | | | | | [...] [facility] | [address] | [place] [address] | | | SERVICES, SPECIAL | PARK [...]
--- OUTSIDE RECORDS SUMMARY | ~2019-06-25 | XMS | Encounter Summary ---
Demographics + + + | Address | [address] | | | [place] [address] | + + + | Home Phone [...] [place], [place] | | | | | [address] | | + + + + + | Ellie Vang | ECON | Unknown | | + + + + + Care Team Providers + +------+ + | Care [employer] Name | Role | Phone | [...] | | | | | | | [facility] | | [facility] | | | | | | | [facility], | | | | | | | [address] | | | | | | | [place], [place] | | | | | | | [address] | | | | | | | Phone: | | | | | | | [phone] | | | | | | | Fax: | | | | | | | [phone] | +--------+--------+ + + + + Encounter [...] | [address] | Lesly Gutiérrez [place], | 2 diabetes mellitus | | | | Mailcode: Center | [place] [address] | (HCC) | | | | for Health and | | | | | | [facility], [facility] [address] | | | | | | [place], [place] | | | | | | [address] | | | | | | [phone] | | | +--------+---------+ + + + [...] of Visit: 12:29 to 12:57 (28 minutes [id number] with patient) SUBJECTIVE: Trying to follow a [...] post-surgery diet progression. 4. Call or send [employer] message to dietitian with any questions. Contact information was provided. Follow up with dietitian prior to surgery to review post-surgical recommendations. Yuli Childs RD, CNSC, LD Pager# [phone] documented in this enco unter Plan of [...] [address] | | | | | | [place], [place] | | | | | | [address] | | | | | | [phone] | | | | | | | | +--------+ + + + + | 08/19/ | Surgery | Surgery | Chilo, | OPEN VENTRAL HERNIA | | 2019 | | | MD Jorje [address] | REPAIR WITH | | | | | [address] | BIOLOGICAL MESH | | | | | [facility] [place] | | | | | | [address] | | | | | | [phone] | | | | | | | | +--------+ + + + + | 09/15/ | Office | Cardiology | Randell Franks, | | | 2019 | Visit | | [address] | | | | | | [place], [place] | | | | | | [address] | | | | | | [phone] | | | | | | | [...]
--- OUTSIDE RECORDS SUMMARY | ~2019-06-25 | XMS | Encounter Summary ---
Demographics + + + | Address | [address] | | | [place] [address] | + + + | Home Phone [...] [place], [place] | | | | | [address] | | + + + + + | Ellie Vang | ECON | Unknown | | + + + + + Care Team Providers + +------+ + | Care Reproductive Healthcare Assistant Name | Role | Phone | [...] | 2018 | Visit | Preventive at [facility] | MD Deion Farris | mellitus without | | | | [address] | Ave [place], [place] | complication, with | | | | Mailcode: [facility] | [address] | long-term current | | | | [facility] | [phone] | use of insulin (HCC) | | | | and Healing, | | (Primary Dx); | | | | Building 1 | | Chronic right-sided | | | | [place], [place] | | heart failure (HCC) | | | | [address] | | | | | | [phone] | | | +--------+---------+ + + + [...] management of her heart failure by her Shooter'S Helper 3) Check A1c, lipids 4) Await bariatric surgery in February 2018 5) Continue phentermine 37.5 mg daily 6) Continue wound care, non-pressure ambulation of right foot wound 7) Follow-up 4-6 months In the interim, the patient underwent bariatric surgery and was discharged [facility] the [facility] on [facility]. Today, the patient reports [...] 06/23 - She is working with the animal breeder in her office - She is taking [...] tongue once daily., Disp: , Rfl: CALCIUM CRB&PEH-G1-SIR33-GENIS ORAL, Take 2 tablets by mouth two [...] 3.19 11/28/2016 Lab Results Component Value Date [id number] 88.6 05/27/2018 Lab Results Component Value Date [...] weight of 320lbs. Plan to work with animal breeder from bariatric surgery, identify etio logy of [...] is currently being managed well by her Shooter'S Helper with diuretics and mainte nance of [...] Gissell Clements MD Fellow, Cardiovascular Medicine Pager [phone] signed by Gissell Clements MD at 06/04/2018 [...] | | | | | | [place], [place] | | | | | | [address] | | | | | | [phone] | | | | | | | | +--------+ + + + + | 08/19/ | Surgery | Surgery | Chilo, | OPEN VENTRAL HERNIA | | 2019 | | | MD [address] | REPAIR WITH | | | | | [address] | BIOLOGICAL MESH | | | | | [place], [place] | | | | | | [address] | | | | | | [phone] | | | | | | | | +--------+ + + + + | 09/15/ | Office | Cardiology | Randell Franks, | | | 2019 | Visit | | MD [address] | | | | | | Ave [place], [place] | | | | | | [address] | | | | | | [phone] | | | | | | | [...]
--- OUTSIDE RECORDS SUMMARY | ~2019-06-25 | XMS | Encounter Summary ---
Demographics + + + | Address | [address] | | | [place] [address] | + + + | Home Phone [...] | Author | [facility] | | | and Jeffana | + + + | Organization | [facility] | | | [...] Team Providers + +------+ + | Care Tattoo Designer Name | Role | Phone | + +------+ + PCP | Unavailable | + +------+ + Encounter Details +--------+ + + + + | Date | Type | Department | Care Team | Description | +--------+ + + + + | 10/14/ | Orders Only | [facility] | Conversion | | | 2016 | | NEPRHOLOGY [place] | Transaction, | | | | | [address] [place] | Provider Unknown | | | | | [address] [place], [place] | | | | | | [address] | (Fax) | | | | | [phone] | | | +--------+ + + + [...]
--- OUTSIDE RECORDS SUMMARY | ~2019-06-25 | XMS | Encounter Summary ---
Demographics + + + | Address | [address] | | | [place] [address] | + + + | Home Phone [...] | [facility] | | | and Jeffana | + + + | Organization | [facility] | [...] + +------+ + | Care Filter Tip Inspector Name | Role | Phone | [...] Closed | | Radiology | Diagnoses | [place], | [facility] | | | | | Deep vein | Dharmesh | Intra Op 888 | | | | | thrombosis | MD Natan | [facility]RICE SPARKS | | | | | (DVT) of | [address] | [place], [place] | | | | | left lower | [address] | [address] | | | | | extremity, | Roshan E | Phone: | | | | | unspecified | [place], [place] | [phone] | | | | | chronicity, | [address] | Fax: | | | | | unspecified | Phone: | [phone] | | | | | vein (HCC) | [phone] | | | | | | Procedures | Fax: | | | | | | IR Removal | [phone] | | | | | | Fibrin [...] + + | 06/14/ | Telephone | [facility] | Dharmesh Fierro, | Procedure | | 2019 | | INTERVENTIONAL | RN | | | | | RADIOLOGY [address] | | | | | | [address] | | | | | | [place] | | | | | | [address] | | | | | | [phone] | | | +--------+ + + + [...] + + | Performing | Address | City/State/[facility] | Phone Number | [...]
--- OUTSIDE RECORDS SUMMARY | ~2019-06-25 | XMS | Encounter Summary ---
Demographics + + + | Address | [address] | | | [place] [address] | + + + | Home Phone [...] [place], [place] | | | | | [address] | | + + + + + | Ellie Vang | ECON | Unknown | | + + + + + Care Team Providers + +------+ + | Care Model Engine Mechanic Name | Role | Phone | [...] [facility] | [address] | | | | | [address] | [place], [place] | | | | | Mailcode: [facility] | [address] | | | | | [facility] | [phone] | | | | | and Healing, | | | | | | Building [address] | | | | | | [place], [place] | | | | | | [address] | | | | | | [phone] | | | +--------+ + + + [...] [place] | | | | | | [address] | | | | | | [phone] | | | | | | | | +--------+ + + + + | 08/19/ | Surgery | Surgery | Chilo, | OPEN VENTRAL HERNIA | | 2019 | | | MD [address] | REPAIR WITH | | | | | [address] | BIOLOGICAL MESH | | | | | [place], [place] | | | | | | [address] | | | | | | [phone] | | | | | | | | +--------+ + + + + | 09/15/ | Office | Cardiology | Randell Franks, | | | 2020 | Visit | | [address] | | | | | | [place], [place] | | | | | | [address] | | | | | | [phone] | | | | | | | | +--------+ + + + + documented as of this encounter Visit Diagnoses Not on filedocumented in this encounter"
--- OUTSIDE RECORDS SUMMARY | ~2019-06-25 | XMS | Encounter Summary ---
Demographics + + + | Address | [address] | | | [place] [address] | + + + | Home Phone [...] [place], [place] | | | | | [address] | | + + + + + | Ellie Vang | ECON | Unknown | | + + + + + Care Team Providers + +------+ + | Care Gasket Maker Name | Role | Phone | [...] | 2012 | | Center at [facility] [address] | MD [address] | | | | | [address] | [facility] | | | | | Mailcode: Center | [place], [place] | | | | | [facility] and | [address] | | | | | [facility], [facility] 2 | [phone] | | | | | [place], [place] | | | | | | [address] | | | | | | [phone] | | | +--------+ + + + [...] | | | | | | [place], [place] | | | | | | [address] | | | | | | [phone] | | | | | | | | +--------+ + + + + | 08/19/ | Surgery | Surgery | Chilo, | OPEN VENTRAL HERNIA | | 2019 | | | MD Jorje [address] | REPAIR WITH | | | | | [address] | BIOLOGICAL MESH | | | | | [facility] [place] | | | | | | [address] | | | | | | [phone] | | | | | | | | +--------+ + + + + | 09/15/ | Office | Cardiology | Randell Franks, | | | 2019 | Visit | | [address] | | | | | | [place] [facility] [place] | | | | | | [address] | | | | | | [phone] | | | | | | | | +--------+ + + + + documented as of this encounter Visit Diagnoses Not on filedocumented in this encounter"
--- OUTSIDE RECORDS SUMMARY | ~2019-06-25 | XMS | Encounter Summary ---
Demographics + + + | Address | [address] | | | [place] [address] | + + + | Home Phone [...] [place], [place] | | | | | [address] | | + + + + + | Ellie Vang | ECON | Unknown | | + + + + + Care Team Providers + +------+ + | Care Dispensary Clerk Name | Role | Phone | [...] Rd | | | | | | [place], [place] | | | | | | [address] | | | | | | [phone] | | | | | | | | +--------+ + + + + | 08/19/ | Surgery | Surgery | Chilo, | OPEN VENTRAL HERNIA | | 2019 | | | MD Jorje [address] | REPAIR WITH | | | | | [address] | BIOLOGICAL MESH | | | | | [place], [place] | | | | | | [address] | | | | | | [phone] | | | | | | | | +--------+ + + + + | 09/15/ | Office | Cardiology | Randell Franks, | | | 2019 | Visit | | [address] | | | | | | [place], [place] | | | | | | [address] | | | | | | [phone] | | | | | | | | +--------+ + + + + documented as of this encounter Visit Diagnoses Not on filedocumented in this encounter"
--- OUTSIDE RECORDS SUMMARY | ~2019-06-25 | XMS | Encounter Summary ---
Demographics + + + | Address | [address] | | | [place] [address] | + + + | Home Phone [...] [place], [place] | | | | | [address] | | + + + + + | Ellie Vang | ECON | Unknown | | + + + + + Care Team Providers + +------+ + | Care Screedman/Laborer Name | Role | Phone | + +------+ + | Fadi Goodrich DO | PCP | | + +------+ + Encounter Details +--------+ + + + + | Date | Type | Department | Care Team | Description | +--------+ + + + + | 03/04/ | Telephone | Dig[facility]ive [facility] | Ion Pandey, | | | 2018 | | [place] at [facility] [address] | MD [address] | | | | | [address] | [place], [place] | | | | | Mailcode: [place] | [address] | | | | | for Health and | | | | | | [facility] 2 | | | | | | [facility] [place] | | | | | | [address] | | | | | | | [...] Rd | | | | | | [place], [place] | | | | | | [address] | | | | | | [phone] | | | | | | | | +--------+ + + + + | 08/19/ | Surgery | Surgery | Chilo | OPEN VENTRAL HERNIA | | 2019 | | | MD [address] | REPAIR WITH | | | | | [address] | BIOLOGICAL MESH | | | | | [place], [place] | | | | | | [address] | | | | | | [phone] | | | | | | | | +--------+ + + + + | 09/15/ | Office | Cardiology | Randell Franks, | | | 2019 | Visit | | MD [address] | | | | | | [place] | | | | | | [address] | | | | | | [phone] | | | | | | | | +--------+ + + + + documented as of this encounter Visit Diagnoses Not on filedocumented in this encounter"
--- OUTSIDE RECORDS SUMMARY | ~2019-06-25 | XMS | Clinical Summary ---
Demographics + + + | Address | [address] | | | [place] [address] | + + + | Home Phone [...] | Author | [facility] (Historical as of | | | 03-12-19) | + + + | Organization | [facility] (Historical as of | | | 03-12-19) [...] Team Providers + +------+ + | Care Backwinder Name | Role | Phone | + [...] | | | Activ | | (DRISDOL) [id number] | mouth twice a week. | | [...] | obesity, she is enrolled in [facility] bariatric [facility]. She has [...] obesityPickwickian syndrome Recent | | admission to [facility] for 100lb weight | | gain- DC on diuresis on 03/06/2016- she feel improvedShe was on | | Metolazone and Torsemide prior to hospitalization- both have | | better bioavailability than lasix in gut edema but she retained | | 100lbs - how ever she is currently on only Torsemide 100mg Q12hrs | | started in [place] and her weight been stable sinceShe has no | | other complaints.She is pending to see NephrologistCiriloo | | 02/16/2016([facility] Normal LV systolic function, mildly | | dilated RVContinue Torsemide and she will continue to monitor | | weights at homeF/u in 6 weeks.She will continue to monitor | | weights, BP, HR at home. Discussed with her about CHF- | | management- importance of weight management, Bp management, Na | | restriction.Continue K and Mg supplementsrGace is aware I am going | | [...] +------+-------+ + | MEDICAID | [place] | [id number] | | | [address] | | | N | | | | [place] | | | [place] | | | | [address] | | | MILLING MACHINE OPERATOR | | | | | [...] | | | mireya | | | [address]22 | [address] | + +--------+ +--------+ + +
--- OUTSIDE RECORDS SUMMARY | ~2019-06-25 | XMS | Encounter Summary ---
Demographics + + + | Address | [address] | | | [place] [address] | + + + | Home Phone [...] [place], [place] | | | | | [address] | | + + + + + | Ellie Vang | ECON | Unknown | | + + + + + Care Team Providers + +------+ + | Care Lending Consultant Name | Role | Phone | [...] Diabetes & | Morbid | Kathy M, SEO ANALYST | [address] | | | | Metabolism | obesity | [address] | [address] | | | | | (HCC) | [address], | [address] | | | | | Procedures | [address] | Physician's | | | | | CONSULT TO | [place], [place] | [place] | | | | | ENDO | [address] | Physician's | | | | | [address] | Phone: | Pavilion | | | | | [address] | [phone] | [place], [place] | | | | | | Fax: | [address] | | | | | | [phone] | Phone: | | | | | | | [phone] | | | | | | | Fax: | | | | | | | [phone] | +--------+--------+ + + + + Encounter [...] | | Center at Physicians | Ave [place], [place] | ([facility]ERLY [facility]) (Primary Dx); | | | | Pav[address] | [address] | Type 2 diabetes | | | | [address] | [phone] | mellitus ([facility]); AMARA | | | | Physician's | | (obstructive sleep | | | | Pavilion | | apnea); Morbid | | | | Physician's Pavilion | | obesity ([facility]); | | | | [place], [place] | | Edema; GERD | | | | [address] | | (gastroesophageal | | | | [phone] | | reflux disease) | +--------+---------+ + [...] Goodrich DO Referring physician: Kathy Feldman, KALYAN [address] [place] [address] HPI: Dylan is a 38 y.o. female [...] 9 CREATININE PLASMA (LAB) 0.71 EGFR - LEBANESE >60 EGFR NON -LEBANESE >60 GLUCOSE, PLASMA (LAB) 113 (H) CALCIUM, [...] [place] | | | | | | [address] | | | | | | [phone] | | | | | | | | +--------+ + + + + | 08/19/ | Surgery | Surgery | Chilo | OPEN VENTRAL HERNIA | | 2019 | | | MD [address] | REPAIR WITH | | | | | [address] | BIOLOGICAL MESH | | | | | [place], [place] | | | | | | [address] | | | | | | [phone] | | | | | | | | +--------+ + + + + | 09/15/ | Office | Cardiology | Randell Franks, | | | 2020 | Visit | | [address] | | | | | | [place], [place] | | | | | | [address] | | | | | | [phone] | | | | | | | [...] | | | PDT | type 2) ([facility]) | results section. | + +--------+ + + + | CA COLLECTION | Routin | 04/14/2013 | DM type 2 | | | CAPILLARY BLOOD | e | 11:08 AM | (diabetes mellitus, | | | SPECIMEN | | PDT | type 2) ([facility]) | [...] AMES | [address] | [place], [place] | | | [place] [facility] | [address] | [address] | | | TESTS | | | | + + + + + documented in this encounter Visit Diagnoses + + | Diagnosis | + + | DM type 2 (diabetes mellitus, type 2) ([facility]) - Primary Type II or unspecified type |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 without mention of complication, not stated as uncontrolled | + + | Type 2 diabetes mellitus ([facility]) Type II or unspecified type diabetes mellitus without | | mention of complication, not stated as uncontrolled | + + | AMARA (obstructive sleep apnea) Obstructive sleep apnea (adult) (pediatric) | + + | Morbid obesity ([facility]) Morbid obesity | + + | Edema | + + | GERD (gastroesophageal reflux disease) Esophageal reflux | + + documented in this encounter
--- OUTSIDE RECORDS SUMMARY | ~2019-06-25 | XMS | Encounter Summary ---
Demographics + + + | Address | [address] | | | [place] [address] | + + + | Home Phone [...] [place], [place] | | | | | [address] | | + + + + + | Ellie Vang | ECON | Unknown | | + + + + + Care Team Providers + +------+ + | Care Factory Worker Name | Role | Phone | [...] Center | | | | | | [place], [place] | | | | | | [address] | | | | | | [phone] | | | +--------+ + + + [...] [place] | | | | | | [address] | | | | | | [phone] | | | | | | | | +--------+ + + + + | 08/19/ | Surgery | Surgery | Chilo | OPEN VENTRAL HERNIA | | 2019 | | | MD [address] | REPAIR WITH | | | | | [address] | BIOLOGICAL MESH | | | | | [place], [place] | | | | | | [address] | | | | | | [phone] | | | | | | | | +--------+ + + + + | 09/15/ | Office | Cardiology | Randell Franks, | | | 2019 | Visit | | [address] | | | | | | [place], [place] | | | | | | [address] | | | | | | [phone] | | | | | | | [...] | | | | | | | [place], [place] | | | | | | [address] | | | | | | | [...] | | | | artery. A 5.5 Croatian | | | | | | Ozzy [...]
--- OUTSIDE RECORDS SUMMARY | ~2019-06-25 | XMS | Encounter Summary ---
Demographics + + + | Address | [address] | | | [place] [address] | + + + | Home Phone [...] [place], [place] | | | | | [address] | | + + + + + | Ellie Vang | ECON | Unknown | | + + + + + Care Team Providers + +------+ + | Care Mail Agent Name | Role | Phone | [...] | | | | | | [place] [address] | | | | | | [phone] | | | +--------+ + + + [...] [place] | | | | | | [address] | | | | | | [phone] | | | | | | | | +--------+ + + + + | 08/19/ | Surgery | Surgery | Chilo | OPEN VENTRAL HERNIA | | 2019 | | | MD [address] | REPAIR WITH | | | | | [address] | BIOLOGICAL MESH | | | | | [place], [place] | | | | | | [address] | | | | | | [phone] | | | | | | | | +--------+ + + + + | 09/15/ | Office | Cardiology | Randell Franks, | | | 2020 | Visit | | MD [address] | | | | | | [place], [place] | | | | | | [address] | | | | | | [phone] | | | | | | | | +--------+ + + + + documented as of this encounter Visit Diagnoses Not on filedocumented in this encounter"
--- OUTSIDE RECORDS SUMMARY | ~2019-06-25 | XMS | Encounter Summary ---
Demographics + + + | Address | [address] | | | [place] [address] | + + + | Home Phone [...] [place], [place] | | | | | [address] | | + + + + + | Ellie Vang | ECON | Unknown | | + + + + + Care Team Providers + +------+ + | Care Noc Engineer Name | Role | Phone | + +------+ + | Fadi Goodrich DO | PCP | | + +------+ + Encounter Details +--------+ + + + + | Date | Type | Department | Care Team | Description | +--------+ + + + + | 12/05/ | Abstract | Cardiology | Randell Franks, | | | 2016 | | Preventive at [facility] | MD [address] | | | | | [address] | Ave [place], [place] | | | | | Mailcode: [facility] | [address] | | | | | [facility] | [phone] | | | | | and Healing, | | | | | | Building [address] | | | | | | [place], [place] | | | | | | [address] | | | | | | [phone] | | | +--------+ + + + [...] Rd | | | | | | [place], [place] | | | | | | [address] | | | | | | [phone] | | | | | | | | +--------+ + + + + | 08/19/ | Surgery | Surgery | Chilo, | OPEN VENTRAL HERNIA | | 2019 | | | MD [address]or[address] | REPAIR WITH | | | | | [address] | BIOLOGICAL MESH | | | | | [place], [place] | | | | | | [address] | | | | | | [phone] | | | | | | | | +--------+ + + + + | 09/15/ | Office | Cardiology | Randell Franks, | | | 2019 | Visit | | MD [address] | | | | | | [place], [place] | | | | | | [address] | | | | | | [phone] | | | | | | | | +--------+ + + + + documented as of this encounter Visit Diagnoses Not on filedocumented in this encounter"
--- OUTSIDE RECORDS SUMMARY | ~2019-06-25 | XMS | Encounter Summary ---
Demographics + + + | Address | [address] | | | [place] [address] | + + + | Home Phone [...] | Author | [facility] | | | and Jeffana | + + + | Organization | [facility] | | | and [...] Providers + +------+ + | Care Materials Director Name | Role | Phone | + +------+ + PCP | Unavailable | + +------+ + Encounter Details +--------+ + + + + | Date | Type | Department | Care Team | Description | +--------+ + + + + | 08/31/ | Hospital | [facility] | Erich Wells | | | 2004 | Encounter | MED CTR SLEEP | MD [address] | | | | | [place] [address] | [address] [place] | | | | | [place], [place] | [place] [address] | | | | | [address] | [phone] | | | | | [phone] | | | +--------+ + + + [...]
--- OUTSIDE RECORDS SUMMARY | ~2019-06-25 | XMS | Encounter Summary ---
Demographics + + + | Address | [address] | | | [place] [address] | + + + | Home Phone [...] [place], [place] | | | | | [address] | | + + + + + | Ellie Vang | ECON | Unknown | | + + + + + Care Team Providers + +------+ + | Care Licensed Psychologist Manager Name | Role | Phone | [...] 2017 | | Center at [facility] [address] | ACNP [address] | | | | | [address] | Ave [place], [place] | | | | | Mailcode: [place] | [address] | | | | | for Health and | [phone] | | | | | [facility] 2 | | | | | | [place], [place] | | | | | | [address] | | | | | | | [...] Rd | | | | | | [place], [place] | | | | | | [address] | | | | | | [phone] | | | | | | | | +--------+ + + + + | 08/19/ | Surgery | Surgery | Chilo | OPEN VENTRAL HERNIA | | 2019 | | | MD [address] | REPAIR WITH | | | | | [address] | BIOLOGICAL MESH | | | | | [place], [place] | | | | | | [address] | | | | | | [phone] | | | | | | | | +--------+ + + + + | 09/15/ | Office | Cardiology | Randell Franks, | | | 2019 | Visit | | [address] | | | | | | [place] | | | | | | [address] | | | | | | [phone] | | | | | | | | +--------+ + + + + documented as of this encounter Visit Diagnoses Not on filedocumented in this encounter"
--- OUTSIDE RECORDS SUMMARY | ~2019-06-25 | XMS | Encounter Summary ---
Demographics + + + | Address | [address] | | | [place] [address] | + + + | Home Phone [...] [place], [place] | | | | | [address] | | + + + + + | Ellie Vang | ECON | Unknown | | + + + + + Care Team Providers + +------+ + | Care Meteorology Instructor Name | Role | Phone | [...] 2017 | | Center at [facility] [address] | ACNP [address] | | | | | [address] | Ave [place], [place] | | | | | Mailcode: [place] | [address] | | | | | for Health and | [phone] | | | | | [facility] 2 | | | | | | [place], [place] | | | | | | [address] | | | | | | | [...] [place] | | | | | | [address] | | | | | | [phone] | | | | | | | | +--------+ + + + + | 08/19/ | Surgery | Surgery | Chilo | OPEN VENTRAL HERNIA | | 2019 | | | MD [address] | REPAIR WITH | | | | | [address] | BIOLOGICAL MESH | | | | | [place], [place] | | | | | | [address] | | | | | | [phone] | | | | | | | | +--------+ + + + + | 09/15/ | Office | Cardiology | Randell Franks, | | | 2019 | Visit | | [address] | | | | | | [place] | | | | | | [address] | | | | | | [phone] | | | | | | | | +--------+ + + + + documented as of this encounter Visit Diagnoses Not on filedocumented in this encounter"
--- OUTSIDE RECORDS SUMMARY | ~2019-06-25 | XMS | Encounter Summary ---
Demographics + + + | Address | [address] | | | [place] [address] | + + + | Home Phone [...] [place], [place] | | | | | [address] | | + + + + + | Ellie Vang | ECON | Unknown | | + + + + + Care Team Providers + +------+ + | Care Product Development Intern Name | Role | Phone [...] [id number] | | | | | | [facility] | | | | | | [place], [place] | | | | | | [address] | | | | | | [phone] | | | +--------+ + + + [...] Rd | | | | | | [place], [place] | | | | | | [address] | | | | | | [phone] | | | | | | | | +--------+ + + + + | 08/19/ | Surgery | Surgery | Chilo, | OPEN VENTRAL HERNIA | | 2019 | | | MD Jorje [address] | REPAIR WITH | | | | | [address] | BIOLOGICAL MESH | | | | | [place], [place] | | | | | | [address] | | | | | | [phone] | | | | | | | | +--------+ + + + + | 09/15/ | Office | Cardiology | Randell Franks, | | | 2019 | Visit | | [address] | | | | | | [address] [place], [place] | | | | | | [address] | | | | | | [phone] | | | | | | | | +--------+ + + + + documented as of this encounter Visit Diagnoses Not on filedocumented in this encounter"
--- OUTSIDE RECORDS SUMMARY | ~2019-06-25 | XMS | Encounter Summary ---
Demographics + + + | Address | [address] | | | [place] [address] | [...] [place], [place] | | | | | [address] | | + + + + + | Ellie Vang | ECON | Unknown | | + + + + + Care Team Providers + +------+ + | Care Printing Press Operator Apprentice Name | Role | Phone | [...] | | | 2017 | Event | [facility] | Joann Person MD,PhD | | | | | Admitting Desk | [address] | | | | | Located on the 9 | [facility] [place] | | | | | floor [address] [facility] | [address] | | | | | [address] | [phone] | | | | | [place], [place] | | | | | | [address] | Graham Mckinney, | | | | | | MUSE[employer] SEC[employer] CHIEF [address] | | | | | | [address] | | | | | | [place], [place] | | | | | | [address] | | | | | | [phone] | | | | | | | [...] | | Endotracheal Tube; 7; Oral; | MUSEUM SECURITY CHIEF | MUSEUM SECURITY CHIEF | | | Cuffed; 06/23/18; [address] | [...] [address] | | | | | | [place] | | | | | | [address] | | | | | | [phone] | | | | | | | | +--------+ + + + + | 08/19/ | Surgery | Surgery | Chilo | OPEN VENTRAL HERNIA | | 2019 | | | MD Demond [address] | REPAIR WITH | | | | | [address] | BIOLOGICAL MESH | | | | | [place] | | | | | | [address] | | | | | | [phone] | | | | | | | | +--------+ + + + + | 09/15/ | Office | Cardiology | Randell Franks, | | | 2019 | Visit | | [address] | | | | | | [place], [place] | | | | | | [address] | | | | | | [phone] | | | | | | | [...] bed and dolores for RSI. Performed by MUSEUM SECURITY CHIEF | | | YINKA, GRAHAM E | [...]
--- OUTSIDE RECORDS SUMMARY | ~2019-06-25 | XMS | Encounter Summary ---
Demographics + + + | Address | [address] | | | [place] [address] | + + + | Home Phone [...] [place], [place] | | | | | [address] | | + + + + + | Ellie Vang | ECON | Unknown | | + + + + + Care Team Providers + +------+ + | Care Lawn Sprinkler Servicer Name | Role | Phone | [...] | 2012 | | Center at [facility] [address] | WEIGH TANK OPERATOR [address] | | | | | [address] | [facility] 350 | | | | | Mailcode: Center | [place], [place] | | | | | [facility] and | [address] | | | | | [facility] 2 | [phone] | | | | | [place], [place] | | | | | | [address] | | | | | | [phone] | | | +--------+ + + + [...] [place] | | | | | | [address] | | | | | | [phone] | | | | | | | | +--------+ + + + + | 08/19/ | Surgery | Surgery | Chilo, | OPEN VENTRAL HERNIA | | 2019 | | | MD Jorje [address] | REPAIR WITH | | | | | [address] | BIOLOGICAL MESH | | | | | [place], [place] | | | | | | [address] | | | | | | [phone] | | | | | | | | +--------+ + + + + | 09/15/ | Office | Cardiology | Randell Franks, | | | 2019 | Visit | | [address] | | | | | | [place], [place] | | | | | | [address] | | | | | | [phone] | | | | | | | | +--------+ + + + + documented as of this encounter Visit Diagnoses Not on filedocumented in this encounter"
--- OUTSIDE RECORDS SUMMARY | ~2019-06-25 | XMS | Encounter Summary ---
Demographics + + + | Address | [address] | | | [place] [address] | + + + | Home Phone [...] [place], [place] | | | | | [address] | | + + + + + | Ellie Vang | ECON | Unknown | | + + + + + Care Team Providers + +------+ + | Care Conductor Freight Name | Role | Phone | + [...] Rd | | | | | | [place], [place] | | | | | | [address] | | | | | | [phone] | | | | | | | | +--------+ + + + + | 08/19/ | Surgery | Surgery | Chilo, | OPEN VENTRAL HERNIA | | 2019 | | | MD Jorje [address] | REPAIR WITH | | | | | [address] | BIOLOGICAL MESH | | | | | [place], [place] | | | | | | [address] | | | | | | [phone] | | | | | | | | +--------+ + + + + | 09/15/ | Office | Cardiology | Randell Franks, | | | 2019 | Visit | | [address] | | | | | | [place], [place] | | | | | | [address] | | | | | | [phone] | | | | | | | | +--------+ + + + + documented as of this encounter Visit Diagnoses Not on filedocumented in this encounter"
--- OUTSIDE RECORDS SUMMARY | ~2019-06-25 | XMS | Encounter Summary ---
Demographics + + + | Address | [address] | | | [place] [address] | + + + | Home Phone [...] [place], [place] | | | | | [address] | | + + + + + | Ellie Vang | ECON | Unknown | | + + + + + Care Team Providers + +------+ + | Care Marketing Database Coordinator Name | Role | Phone | [...] repair incarcerated | | 2012 | | [facility] | [address] [facility] | ventral hernia; | | | | Admitting Desk | [address] | possible bowel | | | | Located on the | [place], [place] | resection; | | | | floor [address] [facility] | [address] | | | | | [address] | [phone] | | | | | [place], [place] | | | | | | [address] | | | +--------+---------+ + + + [...] yuriy tral hernia. She was transferred from [place] for surgical evaluation of possible incarcer ated [...] Cipro. POD 5 she was discharged ho ne, tolerating a diabetic diet. Having bowel function. [...] yuriy tral hernia. She was transferred from [place] for surgical evaluation of possible incarcer ated [...] Cipro. POD 5 she was discharged ho ne, tolerating a diabetic diet. Having bowel function. [...] keeping you from eating and drinking, Call [phone]. It is important to stay hydrated! If [...] taking narcotic that contain Tylenol (acetaminophen) Example: Jenera, Lortab, Vicodin, hydrocodone/APAP, Percocet, Tylenol #3 PAIN MEDICATIONS are ONLY REFILLED during CLINIC APPOINTMENTS. Please call [phone] to schedule an appointment. Your Follow-Up Plan Follow up with ROBIN MEJIA in 2 weeks. Contact information: [address] [facility] [address] Vitals on discharge: Ht 154.9 cm (5' [...] different f rom the original. [facility] DEPARTMENT OF SURGERY EMERGENCY GENERAL SURGERY Division [...] without erythema and no infecti on noted. [place] intact : good urine output and Patient [...] clinic [place] [phone] pager number [place] [phone] [facility] [address] Aminta Goodwin Md - 11/11/2012 7:40 AM PDT [facility] DEPARTMENT OF SURGERY EMERGENCY GENERAL SURGERY Division of Trauma and Critical Care Attending Physician: Andie Brian MD Progress Note Note Date: 11/11/2012 Admission Date: 11/06/2012 DYLAN ROMERO, [id number] Hospital Day #5 INTERVAL EVENTS none acute [...] mg, Rectal, DAILY PRN, Aminta Wilson MD obmutfkrlc-jkdxocpiymubu-yxttpruw (aka FIORICET) 50-325-40 mg 1 Tab, 1 [...] Jayne Ponce MD, 1 mg at 11/10/12801 sqdinkyxnj-protsnzpdybos-rkoizuie (aka FIORICET) 50-325-40 mg 1 Tab, 1 [...] in preservative free NaCl 0.9% 50 mL RETURN AGENT AIRPORT infusion, , Intravenous, KIESHA NUOUS, Aracely Flores [...] diet -add bowel regimen Acute pain -HM RETURN AGENT AIRPORT, tylenol -convert to oral pain medication once [...] Fluids: LR 125ml/hr Feeding: NPO Analgesia: Dilaudid RETURN AGENT AIRPORT Sedation: not indicated Thromboprophylaxis: enoxaparin Head of [...] Ponce MD, 1 mg at 11/09/12 0855 zcvcrlganm-bweolyqxxmwiv-hrfuxfuh (aka FIORICET) 50-325-40 mg 1 Tab, 1 [...] in preservative free NaCl 0.9% 50 mL RETURN AGENT AIRPORT infusion, , Intravenous, KIESHA NUOUS, Aracely Flores [...] 150 mg, 150 mg, Oral, HS, Onur lAlen MD, 150 mg at 2121 trimethoprim-sulfamethoxazole (aka [...] drainage <30ml for 24hrs Acute pain -HM RETURN AGENT AIRPORT, tylenol Diabetes: -insulin gtt not started due [...] Fluids: LR 125ml/hr Feeding: NPO Analgesia: Dilaudid RETURN AGENT AIRPORT Sedation: not indicated Thromboprophylaxis: enoxaparin Head of bed: > 30 Ulcer prophylaxis: pepcid Glycemic control: adequate Activity/PT/OT: Ongoing Yogurt: ABX on Probiotics:yes AMINTA WILSON MD General Surgery, R1 aleb Walker S, N P - 11/08/2012 8:49 AM PDT [facility] DEPARTMENT OF SURGERY EMERGENCY GENERAL SURGERY Division of Trauma and Critical Care Attending Physician: Andie Brian MD Progress Note Note Date: 11/08/2012 Admission Date: 11/06/2012 DYLAN ROMERO, [id number] Hospital Day #2 INTERVAL EVENTS NO SUBJECTIVE Pain well controlled; has headache attributed to dilaudid RETURN AGENT AIRPORT Tylenol did not help. Flatus: YES Tolerating [...] trials today. -DC ruiz Acute pain -HM RETURN AGENT AIRPORT, tylenol Diabetes: -insulin gtt not started due [...] Fluids: LR 125ml/hr Feeding: NPO Analgesia: Dilaudid RETURN AGENT AIRPORT Sedation: not indicated Thromboprophylaxis: enoxaparin Head of bed: > 30 Ulcer prophylaxis: pepcid Glycemic control: adequate Activity/PT/OT: Ongoing Yogurt: ABX on Probiotics: No KALEB WALKER NP [facility] [address] [place] [facility] elvin Stephens MD - 11/07/2012 9:51 [...] 7.33* PCO2 49* PO2 113* HCO3 25 CVLTB4NMR 26 B2SMJDXG 98.3* V7KTENRTC -- FIO2 60 ABGEXCESS -0.9 Assessment, Medical Decision Making and Plan 1. Incarcerated hernia, now s/p repair and panniculectomy -Binder, pain control, minimize nausea and coughing PRN. -NG clamping trials today. 2. Acute pain -HM RETURN AGENT AIRPORT, tylenol 3. Diabetes: -insulin gtt 4. Morbid [...] Dione Grimes MD R-2, General Surgery Pager: [phone] [facility] [place] Department of Surgery Trauma ICU Team Pager (24hrs/day): [phone] I was present with the resident during the history and exam. I discussed the case with the resident and agree with the findings and plan as documented in the resident s note. KELVIN STEPHENS MD [facility] [address] [facility] [place] [address] [id number] Onur Graves MD - 11/07/2012 2:37 AM [...] in preservative free NaCl 0.9% 50 mL RETURN AGENT AIRPORT infusion Intravenous CON TINUOUS Aracely Flores, DO [...] POD#1 s/p primary repair. 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 breakfast cook and prn tylenol, continue prozac and zyprexa [...] F: probable remain NPO today A: dilaudid breakfast cook, prn tylenol S: prn benzos as she is at home T: will start prophylactic lovenox today H: HOB >30 degrees U: pepcid G: insulin gtt ONUR ALLEN MD, PGY3 [place] [address] [facility] [id number]/uhs8t [place] [address] Onelia Shrestha MD - 11/06/2012 8:41 AM PDT [facility] DEPARTMENT OF SURGERY Division of Trauma and Critical Care Emergency General Surgery / Acute Care Surgery Attending Physician: Andie Brian MD Note Date: 11/06/2012 Admission Date: 11/06/2012 DYLAN ROMERO, [id number] Hospital Day #0 OVERNIGHT EVENTS: anxious SUBJECTIVE: [...] [facility] LABS: reviewed and are available in [facility] (if new data) IMAGING: VASCULAR: IMPRESSION: [...] Rd | | | | | | [place], [place] | | | | | | [address] | | | | | | [phone] | | | | | | | | +--------+ + + + + | 08/19/ | Surgery | Surgery | Chilo, | OPEN VENTRAL HERNIA | | 2019 | | | MD Jorje [address] | REPAIR WITH | | | | | [address] | BIOLOGICAL MESH | | | | | [place], [place] | | | | | | [address] | | | | | | [phone] | | | | | | | | +--------+ + + + + | 09/15/ | Office | Cardiology | Rnadell Franks, | | | 2019 | Visit | | [address] | | | | | | Ave [place], [place] | | | | | | [address] | | | | | | [phone] | | | | | | | [...] | + +--------+ + + + | ELV IONIZED CA, POC | Routin | 11/06/2012 [...] Mae | | | | | | [place] | | | | + + + [...] AMES | [address] | [place], [place] | | | [facility] | [address] | [address] | | | TESTS | | | [...] MARQU[facility] | [address] | [place], [place] | | | [facility] | [address] | [address] | | | TESTS | | | [...] [facility] | [address] | [place] [address] | | | SERVICES, CORE | [address] [...] [facility] | [address] | [place] [address] | | | LYDIA RANGEL | [address] [...] + + + + + | [facility] | [address] | [place] [address] | | | SERVICES, CORE | CLARENCE [...] [facility] | [address] | [place], [place] | | | [facility] | [address] | [address] | | | TESTS | | | [...] [place] | [address] | [place], [place] | | | [facility] | [address] | [address] | | | TESTS | | | [...] + + + | [facility] AMES | [address] | [place], [place] | | | [facility] | [address] | [address] | | | TESTS | | | [...] MARQU[facility] | [address] | [place], [place] | | | [facility] | [address] | [address] | | | TESTS | | | [...] - [facility] | [address] | [place], [place] | | | [facility] | [address] | [address] | | | TESTS | | | [...] [facility] | [address] | [place] [address] | | | SERVICES, CORE | PARK [...] + + | [facility] | [address] | [place] [address] | | | CLAIRE, LYDIA | CLARENCE [...] [facility] | [address] | [place] [address] | | | LYDIA RANGEL | CLARENCE [...] 60 - 99 mg/dL | [facility] [...] [facility] | [address] | [place], [place] | | | [facility] | [address] | [address] | | | TESTS | | | [...] AMES | [address] | [place], [place] | | | [facility] | [facility] | [address] | | | TESTS | | | [...] [facility] | [address] | [place], [place] | | | [facility] | [address] | [address] | | | TESTS | | | [...] 60 - 99 mg/dL | [facility] [...] [facility] | [address] | [place] | | | [facility] | [facility] | [address] | | | TESTS | | | [...] AMES | [address] | [place], [place] | | | [facility] | [address] | [address] | | | TESTS | | | [...] + + + + + | [facility] | [address] [facility] | [place] [address] | | | SERVICES, CORE | CLARENCE [...] the MDRD equation recommended by the | [facility] | | National Kidney Disease [...] [facility] | [address] | [place] [address] | | | SERVICES, CORE | [address] | | | + + + + + MAGNESIUM, PLASMA (11/10/2012 3:40 AM PDT) + +---------+ + + + | Component | Value | Ref Range | Performed | Pathologist | | | | | At | Signature | + +---------+ + + + | MAGNESIUM,P | 1.5 (L) | 1.8 - 2.5 mg/dL | [facility] | | | LASMA | | | [...] + + + + + | [facility] | [address] | [place] [address] | | | SERVICES, CORE | CLARENCE [...] [facility] | [address] | [place], [place] | | | [facility] | [facility] | [address] | | | TESTS | | | [...] [facility] | [address] | [place], [place] | | | [facility] | [facility] | [address] | | | TESTS | | | | + + + + + CAPILLARY BLOOD GLUCOSE (NO CHG), POC (11/09/2012 12:19 PM PDT) + +-------+ + + + | Component | Value | Ref Range | Performed | Pathologist | | | | | At | Signature | + +-------+ + + + | BLOOD | 81 | 60 - 99 mg/dL | [facility] [...] + + + | [facility]ES | [address] | [place], [place] | | | [facility] | [address] | [address] | | | TESTS | | | [...] | | | Final CULTURE | | [place] | | | | RESULT:>100,000 cfu/ml | [...] + | [facility] - | [address] | [place] [address] | | | [facility] | | | | + [...] + + + + + | [facility] | [address] | [place] [address] | | | SERVICES, CORE | CLARENCE [...] [facility] | [address] | [place] [address] | | | SERVICES, CORE | PARK [...] - [facility] | [address] | [place], [place] | | | [facility] | [address] | [address] | | | TESTS | | | [...] + + + + + | [facility] | [address] [facility] | [place] [address] | | | LYDIA RANGEL | CLARENCE [...] [facility] | [address] | [place] [address] | | | SERVICES, LYDIA | [address] [...] [facility] | [address] | [place] [address] | | | LYDIA RANGEL | CLARENCE [...] 86 | 60 - 99 mg/dL | [facility] [...] [facility] | [address] | [place] | | | [facility] | [facility] | [address] | | | TESTS | | | [...] AMES | [address] | [place], [place] | | | [facility] | [address] | [address] | | | TESTS | | | [...] [facility] | [address] | [place] | | | [facility] | [address] | [address] | | | TESTS | | | [...] [facility] | [address] | [place] [address] | | | SERVICES, CORE | PARK [...] [facility] | [address] | [place] [address] | | | SERVICES, CORE | PARK [...] + + + + + | [facility] | [address] | [place] [address] | | | SERVICES, LYDIA | CLARENCE [...] [facility] | [address] | [place] | | | [facility] | [facility] | [address] | | | TESTS | | | [...] [facility] | [address] | [place], [place] | | | [facility] | [facility] | [address] | | | TESTS | | | [...] AMES | [address] | [place], [place] | | | [facility]ARE | [address] | [address] | | | TESTS | | | [...] + + + + + | [facility] | [address] | [place] [address] | | | SERVICES, CORE | CLARENCE [...] [facility] | [address] | [place] [address] | | | SERVICES, CORE | PARK [...] + + + + + | [facility] | [address] | [place] [address] | | | SERVICES, CORE | [address] | | | + + + + + X-RAY PORTABLE CHEST 1 VIEW (11/06/2012 4:46 PM PDT) + + + + + + | Component | Value | Ref Range | Performed | Pathologist | | | | | At | Signature | + + + + + + | X-RAY | STUDY: IN CHEST 1 VIEW | | | | | PORTABLE | 11/06/12 16:46:00 | | | | | CHEST 1 | INDICATION: Right upper | | | | | VIEW | lobe opacity. | | | | | | COMPARISON: Earlier same | | | | | | day a STUDY: IN CHEST 1 | | | | | [...] + + + | X-RAY | STUDY: IN CHEST 1 VIEW | | | | [...] 270 | 150 - 400 K/cu | [facility] | | | COUNT | | mm [...] [facility] | [address] | [place] [address] | | | SERVICES, CORE | PARK [...] + | [facility] | [address] | [place] [address] | | | SERVICES, CORE | PARK [...] [facility] | [address] | [place] [address] | | | SERVICES, CORE | CLARENCE [...] 60 - 99 mg/dL | [facility] [...] [facility] | [address] | [place] | | | [facility] | [address] | [address] | | | TESTS | | | [...] AMES | [address] | [place] | | | [facility] | [address] | [address] | | | TESTS | | | [...] [facility] | [address] | [place] | | | [facility] | [address] | [address] | | | TESTS | | | [...] [facility] | [address] | [place], [place] | | | [facility] | [facility] | [address] | | | TESTS | | | [...] AMES | [address] | [place] | | | [facility] | [address] | [address] | | | TESTS | | | [...] [facility] | [address] | [place] | | | [facility] | [facility] | [address] | | | TESTS | | | [...] [facility] | [address] | [place], [place] | | | [facility] | [facility] | [address] | | | TESTS | | | [...] AMES | [address] | [place] | | | [facility] | [address] | [address] | | | TESTS | | | [...] [facility] | [address] | [place] | | | [facility] | [address] | [address] | | | TESTS | | | [...] [facility] | [address] | [place], [place] | | | [facility] | [address] | [address] | | | TESTS | | | [...] AMES | [address] | [place] | | | [facility] | [address] | [address] | | | TESTS | | | [...] [facility] | [address] | [place] [address] | | | CLAIRE | CLARENCE BONNER [...] 60 - 99 mg/dL | [facility] [...] [facility] | [address] | [place] | | | [facility] | [address] | [address] | | | TESTS | | | [...] [facility] | [address] | [place] [address] | | | SERVICES, | [address] [...] [facility] | [address] | [place] [address] | | | SERVICES, | [address] [...] + + + + + | [facility] | [address] | [place] [address] | | | SERVICES, CORE | CLARENCE [...] [facility] | [address] | [place] [address] | | | SERVICES, LYDIA | [address] [...] [facility] | [address] | [place] [address] | | | SERVICES, CORE | PARK [...] [facility] | [address] | [place] [address] | | | SERVICES, CORE | PARK [...] the MDRD equation recommended by the | [facility] | | National Kidney Disease [...] [facility] | [address] | [place] [address] | | | LYDIA RANGEL | CLARENCE [...] view image for the detailed interpretation from [employer] results. | CARDIOLOGY | + + + + + + + + | Performing | Address | City/State/Zipcode | Phone Number | | Organization | | | | + + + + + | [facility] | [address] | [place], [place] | | | CARDIOLOGY | [address] | [address] | | + + + + + [...] [facility] | [address] | [place] [address] | | | SERVICES, CORE | PARK [...] [facility] | [address] | [place] [address] | | | SERVICES, LYDIA | CLARENCE BONNER | | | + + + + + documented in this encounter Visit Diagnoses + + | Diagnosis | + + | Incarcerated ventral hernia Ventral hernia, unspecified, with obstruction | + + documented in this encounter
--- OUTSIDE RECORDS SUMMARY | ~2019-06-25 | XMS | Encounter Summary ---
Demographics + + + | Address | [address] | | | [place] [address] | + + + | Home Phone [...] | Author | [facility] | | | and Jeffana | + + + | Organization | [facility] | | | and Jeffana [...] Team Providers + +------+ + | Care Felter Tennis Balls Name | Role | Phone | + +------+ + | Jorje Hill | PCP | | + +------+ + Encounter Details +--------+ + + + + | Date | Type | Department | Care Team | Description | +--------+ + + + + | 06/17/ | Telephone | [facility] | Christian Dawson A, | | | 2019 | | [facility] | [address] | | | | | [address] | [address] | | | | | [place], [place] | [place] [address] | | | | | [address] | [phone] | | | | | [phone] | | | +--------+ + + + [...]
--- OUTSIDE RECORDS SUMMARY | ~2019-06-25 | XMS | Encounter Summary ---
Demographics + + + | Address | [address] | | | [place] [address] | + + + | Home Phone [...] [place], [place] | | | | | [address] | | + + + + + | Ellie Vang | ECON | Unknown | | + + + + + Care Team Providers + +------+ + | Care Sr. Payroll Processor Name | Role | Phone | [...] the | | | | | | [facility] [address] [facility] | | | | | | [facility] | | | | | | [place], [place] | | | | | | [address] | | | +--------+ + + + [...] Rd | | | | | | [place], [place] | | | | | | [address] | | | | | | [phone] | | | | | | | | +--------+ + + + + | 08/19/ | Surgery | Surgery | Chilo | OPEN VENTRAL HERNIA | | 2019 | | | MD Demond Recinos | REPAIR WITH | | | | | [address] | BIOLOGICAL MESH | | | | | [place], [place] | | | | | | [address] | | | | | | [phone] | | | | | | | | +--------+ + + + + | 09/15/ | Office | Cardiology | Randell Franks, | | | 2019 | Visit | | MD Deion Farris | | | | | | [place] | | | | | | [address] | | | | | | [phone] | | | | | | | | +--------+ + + + + documented as of this encounter Visit Diagnoses Not on filedocumented in this encounter"
--- OUTSIDE RECORDS SUMMARY | ~2019-06-25 | XMS | Encounter Summary ---
[...] [place], [place] | | | | | [address] | | + + + + + | Ellie Vang | ECON | Unknown | | + + + + + Care Team Providers + +------+ + | Care Production Machine Tender Name | Role | Phone [...] [address] | | | | | [place], [place] | [address] | | | 11/12/ | | [address] | [place], [place] | | | 2012 | | [phone] | [address] | | | | | | [phone] | | | | | | | [...] yuriy tral hernia. She was transferred from [place] for surgical evaluation of possible incarcer ated [...] Cipro. POD 5 she was discharged [place], tolerating a diabetic diet. Having bowel function. [...] yuriy tral hernia. She was transferred from [place] for surgical evaluation of possible incarcer ated [...] Cipro. POD 5 she was discharged [place], tolerating a diabetic diet. Having bowel function. [...] keeping you from eating and drinking, Call [phone]. It is important to stay hydrated! If [...] taking narcotic that contain Tylenol (acetaminophen) Example: [place], Lortab, Vicodin, hydrocodone/APAP, Percocet, Tylenol #3 PAIN MEDICATIONS are ONLY REFILLED during CLINIC APPOINTMENTS. Please call [phone] to schedule an appointment. Your Follow-Up Plan Follow up with ROBIN MEJIA in 2 weeks. Contact information: [address] [facility] [address] Vitals on discharge: Ht 154.9 cm (5' [...] be different f rom the original. [facility] DEPARTMENT OF SURGERY EMERGENCY GENERAL [...] clinic - [place]. [place] [address] pager number [facility] [phone] [facility] [address] Aminta Goodwin Md - 11/11/2012 7:40 AM PDT [facility] DEPARTMENT OF SURGERY EMERGENCY GENERAL SURGERY Division of Trauma and Critical Care Attending Physician: Andie Brian MD Progress Note Note Date: 11/11/2012 Admission Date: 11/06/2012 DYLNA ROMERO, [id number] Hospital Day #5 INTERVAL EVENTS none acute [...] mg, Rectal, DAILY PRN, Aminta Wilson MD rowuhxgufc-zhhnkzsqqtiit-xtmfcawi (aka FIORICET) 50-325-40 mg 1 Tab, 1 [...] Jayne Ponce MD, 1 mg at 11/10/12801 gxufjsvszv-hnzpmbdinsthe-pogkyike (aka FIORICET) 50-325-40 mg 1 Tab, 1 [...] in preservative free NaCl 0.9% 50 mL SET UP MACHINIST infusion, , Intravenous, KIESHA NUGRANT, Aracely Mccartynato, [...] diet -add bowel regimen Acute pain -HM SET UP MACHINIST, tylenol -convert to oral pain medication once [...] Fluids: LR 125ml/hr Feeding: NPO Analgesia: Dilaudid SET UP MACHINIST Sedation: not indicated Thromboprophylaxis: enoxaparin Head of [...] Ponce MD, 1 mg at 11/09/12 0855 ldnuhmayjw-phktjwzkirbsl-yeguccyk (aka FIORICET) 50-325-40 mg 1 Tab, 1 [...] in preservative free NaCl 0.9% 50 mL SET UP MACHINIST infusion, , Intravenous, KIESHA NUOUS, Aracely Cruzo, [...] drainage <30ml for 24hrs Acute pain -HM SET UP MACHINIST, tylenol Diabetes: -insulin gtt not started due [...] Fluids: LR 125ml/hr Feeding: NPO Analgesia: Dilaudid SET UP MACHINIST Sedation: not indicated Thromboprophylaxis: enoxaparin Head of bed: > 30 Ulcer prophylaxis: pepcid Glycemic control: adequate Activity/PT/OT: Ongoing Yogurt: ABX on Probiotics:yes AMINTA WILSON MD General Surgery, R1 Kaleb Martin N P - 11/08/2012 8:49 AM PDT [facility] DEPARTMENT OF SURGERY EMERGENCY GENERAL SURGERY Division of Trauma and Critical Care Attending Physician: Andie Brian MD Progress Note Note Date: 11/08/2012 Admission Date: 11/06/2012 DYLAN ROMERO, [id number] Hospital Day #2 INTERVAL EVENTS NO SUBJECTIVE Pain well controlled; has headache attributed to dilaudid SET UP MACHINIST Tylenol did not help. Flatus: YES Tolerating [...] trials today. -DC ruiz Acute pain -HM SET UP MACHINIST, tylenol Diabetes: -insulin gtt not started due [...] Fluids: LR 125ml/hr Feeding: NPO Analgesia: Dilaudid SET UP MACHINIST Sedation: not indicated Thromboprophylaxis: enoxaparin Head of bed: > 30 Ulcer prophylaxis: pepcid Glycemic control: adequate Activity/PT/OT: Ongoing Yogurt: ABX on Probiotics: No KALEB WALKER NP [facility] [address] [place] [address] elvin Stephens MD - 11/07/2012 9:51 PM [...] 7.33* PCO2 49* PO2 113* HCO3 25 FFYYG3MFL 26 K9OSNHDB 98.3* I7KVRNDMX -- FIO2 60 ABGEXCESS -0.9 Assessment, Medical Decision Making and Plan 1. Incarcerated hernia, now s/p repair and panniculectomy -Binder, pain control, minimize nausea and coughing PRN. -NG clamping trials today. 2. Acute pain -HM SET UP MACHINIST, tylenol 3. Diabetes: -insulin gtt 4. Morbid [...] Dione Grimes MD R-2, General Surgery Pager: [phone] [facility] [place] Department of Surgery Trauma ICU Team Pager (24hrs/day): [phone] I was present with the resident during the history and exam. I discussed the case with the resident and agree with the findings and plan as documented in the resident s note. KELVIN STEPHENS MD [facility] [address] [place] [address] [id number] uOnur patton MD - 11/07/2012 2:37 AM [...] soft, appropriately tender, wound with dressing cdi, DIAMODN serosanguinous I/Os: Intake/Output Summary (Last 24 hours) [...] in preservative free NaCl 0.9% 50 mL SET UP MACHINIST infusion Intravenous CON TINUOUS Aracely Flores, DO [...] POD#1 s/p primary repair. 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 registered sales assistant and prn tylenol, continue prozac and zyprexa [...] F: probable remain NPO today A: dilaudid registered sales assistant, prn tylenol S: prn benzos as she is at home T: will start prophylactic lovenox today H: HOB >30 degrees U: pepcid G: insulin gtt ONUR ALLEN MD, PGY3 [facility] [address] [id number] [place] [address] Onelia Shrestha MD - 11/06/2012 8:41 AM PDT [facility] DEPARTMENT OF SURGERY Division of Trauma and Critical Care Emergency General Surgery / Acute Care Surgery Attending Physician: Andie Brian MD Note Date: 11/06/2012 Admission Date: 11/06/2012 DYLAN ROMERO, [id number] Hospital Day #0 OVERNIGHT EVENTS: anxious SUBJECTIVE: [...] zenia LABS: reviewed and are available in [employer] (if new data) IMAGING: VASCULAR: IMPRESSION: Dylan [...] Rd | | | | | | [place], [place] | | | | | | [address] | | | | | | [phone] | | | | | | | | +--------+ + + + + | 08/19/ | Surgery | Surgery | Chilo, | OPEN VENTRAL HERNIA | | 2019 | | | MD Jorje [address] | REPAIR WITH | | | | | [address] | BIOLOGICAL MESH | | | | | [place], [place] | | | | | | [address] | | | | | | [phone] | | | | | | | | +--------+ + + + + | 09/15/ | Office | Cardiology | Randell Franks, | | | 2019 | Visit | | [address] | | | | | | [place], [place] | | | | | | [address] | | | | | | [phone] | | | | | | | [...] Mae | | | | | | [place] | | | | + + + [...] AMES | [address] | [place], [place] | | | [facility] | [address] | [address] | | | TESTS | | | [...] MARQUAM | [address] | [place], [place] | | | [facility]ARE | [address] | [address] | | | TESTS | | | [...] [facility] | [address] | [place] [address] | | | SERVICES, CORE | CLARENCE [...] | [address] | [place] [address] | | | SERVICES, CORE | [address] | | | + + + + + MAGNESIUM, PLASMA (11/12/2012 3:56 AM PDT) + +-------+ + + + | Component | Value | Ref Range | Performed | Pathologist | | | | | At | Signature | + +-------+ + + + | MAGNESIUM,P | 1.8 | 1.8 - 2.5 mg/dL | [facility] | | | LASMA | | | [...] + + | [facility] Meiyou | [address] | [place] [address] | | | SERVICES, CORE | CLARENCE [...] YAKOVAM | [address] | [place] | | | [facility] | [address] | [address] | | | TESTS | | | [...] MARQUAM | [address] | [place], [place] | | | [facility] | [address] | [address] | | | TESTS | | | [...] AMES | [address] | [place], [place] | | | [facility] | [address] | [address] | | | TESTS | | | [...] MARQUAM | [address] | [place] | | | [facility] | [address] | [address] | | | TESTS | | | [...] KWAKU | [address] | [place], [place] | | | [facility] | [facility] | [address] | | | TESTS | | | [...] | [address] | [place] [address] | | | SERVICES, CORE | PARK [...] + + | [facility] Meiyou | [address] [facility] | [place] [address] | | | SERVICES, CORE | CLARENCE [...] | [address] | [place] [address] | | | SERVICES, CORE | CLARENCE [...] - MARQUAM | [address] | [place], [place] | | | [facility] | [address] | [address] | | | TESTS | | | [...] + + + | [facility] AMES | [address] | [place], [place] | | | [facility] | [address] | [address] | | | TESTS | | | [...] MARQUAM | [address] | [place], [place] | | | [facility] | [address] | [address] | | | TESTS | | | [...] - MARQUAM | [address] | [place], [place] | | | [facility] | [address] | [address] | | | TESTS | | | [...] AMES | [address] | [place], [place] | | | [facility] | [address] | [address] | | | TESTS | | | [...] + | [facility] | [address] [facility] | [place] [address] | | | SERVICES, CORE | CLARENCE [...] the MDRD equation recommended by the | [facility] | | National Kidney [...] HOSPITAL LABORATORY | [address] | [place] [address] | | | SERVICES, CORE | [address] | | | + + + + + MAGNESIUM, PLASMA (11/10/2012 3:40 AM PDT) + +---------+ + + + | Component | Value | Ref Range | Performed | Pathologist | | | | | At | Signature | + +---------+ + + + | MAGNESIUM,P | 1.5 (L) | 1.8 - 2.5 mg/dL | [facility] | | | PR[facility] | | | [...] | [facility] | [address] | [place] [address] | | | SERVICES, CORE | PARK [...] 92 | 60 - 99 mg/dL | [facility] - | | | [...] AMES | [address] | [place], [place] | | | [facility] | [address] | [address] | | | TESTS | | | [...] MARQUAM | [address] | [place], [place] | | | [facility] | [address] | [address] | | | TESTS | | | [...] - KWAKU | [address] | [place], [place] | | | [facility] | [address] | [address] | | | TESTS | | | [...] - | | | | | | [facility] | | + + + + + + | SOURCE BODY | Urine | | [facility] - | | | SITE | | | AIRPORT - | | | | | | [place] | | + + + + + + | CULTURE | C UrineSource: Urine | | [facility] - | | | RESULT | | | AIRPORT - | | | | Final CULTURE | | [place] | | | | RESULT:>100,000 cfu/ml | [...] + | [facility] - AIRPORT - | [address] | [place] [address] | | | [facility] | | | | + + + [...] | [address] | [place] [address] | | | SERVICES, CORE | PARK [...] | [address] | [place] [address] | | | SERVICES, CORE | PARK [...] - KWAKU | [address] | [place], [place] | | | [facility] | [address] | [address] | | | TESTS | | | [...] + + | [facility] Meiyou | [address] [facility] | [place] [address] | | | CLAIRE, LYDIA | CLARENCE [...] MEDICAL CENTER | [address] | [place] [address] | | | SERVICES, CORE | CLARENCE [...] | [address] | [place] [address] | | | SERVICES, LYDIA | CLARENCE [...] KWAKU | [address] | [place], [place] | | | [facility] | [address] | [address] | | | TESTS | | | [...] AMES | [address] | [place], [place] | | | [facility] | [address] | [address] | | | TESTS | | | [...] MARQUAM | [address] | [place], [place] | | | [facility] | [address] | [address] | | | TESTS | | | [...] [facility] | [address] | [place] [address] | | | SERVICES, CORE | PARK [...] | [address] | [place] [address] | | | SERVICES, CORE | PARK [...] MEDICAL CENTER | [address] | [place] [address] | | | SERVICES, CORE | CLARENCE [...] MARQUAM | [address] | [place], [place] | | | [facility] PO[facility] CARE | [address] | [address] | | | TESTS | | | [...] KWAKU | [address] | [place], [place] | | | [facility] | [address] | [address] | | | TESTS | | | [...] AMES | [address] | [place], [place] | | | [facility] | [address] | [address] | | | TESTS | | | [...] | + + + + + | [facility] | [address] | [place] [address] | | | SERVICES, CORE | CLARENCE [...] [facility] | [address] | [place] [address] | | | CLAIRE, LYDIA | [address] [...] | + + + + + | [facility] | [address] | [place] [address] | | | SERVICES, CORE | [address] | | | + + + + + X-RAY PORTABLE CHEST 1 VIEW (11/06/2012 4:46 PM PDT) + + + + + + | Component | Value | Ref Range | Performed | Pathologist | | | | | At | Signature | + + + + + + | X-RAY | STUDY: SC CHEST 1 VIEW | | | | | PORTABLE | 11/06/12 16:46:00 | | | | | CHEST 1 | INDICATION: Right upper | | | | | VIEW | lobe opacity. | | | | | | COMPARISON: Earlier same | | | | | | day a STUDY: SC CHEST 1 | | | | | [...] + + + | X-RAY | STUDY: SC CHEST 1 VIEW | | | | [...] MEDICAL CENTER | [address] | [place] [address] | | | SERVICES, CORE | CLARENCE [...] the MDRD equation recommended by the | [facility] | | National Kidney [...] | [address] | [place] [address] | | | SERVICES, CORE | CLARENCE [...] HOSPITAL LABORATORY | [address] | [place] [address] | | | SERVICES, CORE | CLARENCE [...] (H) | 60 - 99 mg/dL | [facility] - | | | [...] AMES | [address] | [place] | | | [facility] | [address] | [address] | | | TESTS | | | [...] AMES | [address] | [place], [place] | | | [facility] | [address] | [address] | | | TESTS | | | [...] MARQUAM | [address] | [place], [place] | | | [facility] | [address] | [address] | | | TESTS | | | [...] KWAKU | [address] | [place], [place] | | | [facility] | [facility] | [address] | | | TESTS | | | [...] AMES | [address] | [place] | | | [facility] | [facility] | [address] | | | TESTS | | | [...] KWAKU | [address] | [place], [place] | | | [facility] | [address] | [address] | | | TESTS | | | [...] KWAKU | [address] | [place], [place] | | | [facility] | [facility] | [address] | | | TESTS | | | [...] AMES | [address] | [place], [place] | | | [facility] | [facility] | [address] | | | TESTS | | | [...] KWAKU | [address] | [place], [place] | | | [facility] | [address] | [address] | | | TESTS | | | [...] MARQUAM | [address] | [place] | | | [facility] | [address] | [address] | | | TESTS | | | [...] AMES | [address] | [place] | | | [facility] | [address] | [address] | | | TESTS | | | [...] LABORATORY | [address] | [place] [address] | | | CLAIRE, | [address] [...] (H) | 60 - 99 mg/dL | [facility] - | | | [...] KWAKU | [address] | [place] | | | [facility] | [address] | [address] | | | TESTS | | | [...] MEDICAL CENTER | [address] | [place] [address] | | | SERVICES, | [address] [...] | [address] | [place] [address] | | | SERVICES, | [address] [...] + | [facility] | [address] [facility] | [place] [address] | | | SERVICES, CORE | CLARENCE [...] HOSPITAL LABORATORY | [address] | [place] [address] | | | SERVICES, CORE | PARK [...] [facility] | [address] | [place] [address] | | | SERVICES, CORE | PARK [...] HOSPITAL LABORATORY | [address] | [place] [address] | | | SERVICES, CORE | PARK [...] [facility] | [address] [facility] | [place] [address] | | | LYDIA RANGEL | CLARENCE [...] view image for the detailed interpretation from [employer] results. | CARDIOLOGY | + + + + + + + + | Performing | Address | City/State/Zipcode | Phone Number | | Organization | | | | + + + + + | [facility] | [address] | [facility] [place] | | | CARDIOLOGY | [address] | [address] | | + + + + + [...] | [address] | [place] [address] | | | SERVICES, CORE | PARK [...] | [address] | [place] [address] | | | SERVICES, CORE | CLARENCE [...] | 1 tablet | | | | wupcbevjnd-kmpjhtxqysdoo-hpdmxlqq | | 13 8:02 | | | [...] 13 7:36 | | | | | SET UP MACHINIST infusion intravenous, | | PM PDT | [...] PDT | | | | | Until [facility] 11/11/12 at 0702 | | | [...]
--- OUTSIDE RECORDS SUMMARY | ~2019-06-25 | XMS | Encounter Summary ---
Demographics + + + | Address | [address] | | | [place] [address] | + + + | Home Phone [...] [place], [place] | | | | | [address] | | + + + + + | Ellie Vang | ECON | Unknown | | + + + + + Care Team Providers + +------+ + | Care Keg Inspector Name | Role | Phone | [...] | | | | | Procedures | [place], [place] | [place], [place] | | | | | [place] | [address] | [address] | | | | | CAR | Phone: | Phone: | | | | | PREVENTATIVE | [phone] | [phone] | | | | | [facility] - | Fax: | Fax: | | | | | LIPIDS | [phone] | [phone] | +--------+--------+ + + + + Encounter Details +--------+---------+ + + + | Date | Type | Department | Care Team | Description | +--------+---------+ + + + | 09/11/ | Office | Cardiology | Olga Lidia Montanez, | 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 | Visit | Preventive at [facility] | [address] | BMI of 70 and over, | | | | [address] | [address] | adult (HCC) (Primary | | | | Mailcode: CH7C | [place], [place] | Dx) | | | | [facility] | [address] | | | | | and Healing, | | | | | | Building [address] | | | | | | [place], [place] | | | | | | [address] | | | | | | [phone] | | | +--------+---------+ + + + [...] appointment, Dietitian: Olga Lidia Montanez RD, LD [facility] Bariatric department (to reschedule classes): [phone] Goals: 1. Try to stop buying Pop-Tarts 2. Replace afternoon snack (think of this as lunch) with vegetables or fruit -cucumbers, carrots, broccoli, cauliflower, etc. -try making ranch dip w/ nonfat plain yogurt (regular or Kittitian) (or mix yogurt w/ salsa; o r chipotle hot sauce & saxman juice) 3. Snack ideas: -fruit -vegetables (with hummus or yogurt dip) -Kittitian yogurt - light (have w/ fruit if you're still hungry) -applesauce - unsweetened, w/ lowfat string cheese -1/4 cup nuts -lowfat string cheese -low-fat or non-fat cottage cheese w/ tomatoes 4. Aim for 60-80 grams of protein a day (see list) 5. Add Kittitian yogurt to breakfast Heart Protection Kitchen from [facility] Healthy eating made simple. What: FREE heart-healthy cooking demonstrations led by guest booster pump operator and nutrition experts. Samples are provided! Where: [facility] ([facility]), September, 2nd floor teaching kitchen When: All classes from 11:00am-12:00pm ? October 12 (led by Dr. Paulino Carreno MD) Please contact Keerthi Boyer at [phone] or email at [email or web address] for information on upcoming classes and to register. Space is limited - reserve your seat today! Want more info on what to eat? Watch the [employer] video, "Healthy Eating 101," at [email or web address].com/watch?[email or web address] documented in this encounter Progress Notes Olga Lidia Montanez RD - 09/11/2017 2:30 PM PSTFormatting of this note might be different fro m the original. [facility] Preventive Cardiology, Nutrition Consultation Referring provider: Dr. Randell Franks MD Referring diagnosis: obesity, HF, DM2 Visit type: Initial; ihds-kd-mxcy visit with patient Questions/Information desired today: Hoping [...] Still has bariatric notebooks at home. Per ExecNote message from Dr. Pandey 09/10/17: "Just tell [...] & 1% milk; occ w/ applesauce or Kittitian yogurt No L S (3pm): pop-tart or [...] it's too expensive. Occ fruit bowls from [facility]. Vegetables: every day w/ dinner - [...] in PT 2x/week for bariatric program (in [place]) UBW: 385-391 lbs Max weight: 529 lbs Weight history: lost from 495 lbs to 383 lbs in 4068-7784 on Atkins diet ANTHROPOMETRICS: Height: Ht Readings from Last 1 Encounters: 09/11/17 1.549 m (5' 1") Weight: Wt Readings from Last 1 Encounters: 09/11/17 176.5 kg (389 lb 3.2 oz) 11/28/16 179.443 kg (395 lb 10 oz) Body mass index is 73.54 kg/m. 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 Currently eating energy-dense/nurient-poor [...] of protein a day - add light Kittitian yogurt to breakfast; include lean protein with PM snack/lunch 3. D/c carbonated beverages (e.g., diet soda); replace with water, Crystal Light, diet deca f tea, or other calorie-free still beverage Contact information was provided; call or send ExecNote message to dietitian with any questi ons. [...] | 2019 | Encounter | | MD Demodn Recinos | | | | | | [address] | | | | | | [place], [place] | | | | | | [address] | | | | | | [phone] | | | | | | | | +--------+ + + + + | 08/19/ | Surgery | Surgery | Chilo, | OPEN VENTRAL HERNIA | | 2019 | | | MD Demond Recinos SW | REPAIR WITH | | | | | [address] | BIOLOGICAL MESH | | | | | [facility] [place] | | | | | | [address] | | | | | | [phone] | | | | | | | | +--------+ + + + + | 09/15/ | Office | Cardiology | Randell Franks, | | | 2020 | Visit | | [address] | | | | | | [place], [place] | | | | | | [address] | | | | | | [phone] | | | | | | | | +--------+ + + + + documented as of this encounter Visit Diagnoses + + | Diagnosis | + + | Morbid obesity with BMI of 70 and over, adult (HCC) - Primary | + + documented in this encounter
--- OUTSIDE RECORDS SUMMARY | ~2019-06-25 | XMS | Encounter Summary ---
Demographics + + + | Address | [address] | | | [place] [address] | + + + | Home Phone [...] Team Providers + +------+ + | Care Skip Pitman Name | Role | Phone | + [...] Rd | | | | | | [place], [place] | | | | | | [address] | | | | | | [phone] | | | | | | | | +--------+ + + + + | 08/19/ | Surgery | Surgery | Chilo, | OPEN VENTRAL HERNIA | | 2019 | | | MD Jorje [address] | REPAIR WITH | | | | | [address] | BIOLOGICAL MESH | | | | | [place], [place] | | | | | | [address] | | | | | | [phone] | | | | | | | | +--------+ + + + + | 09/15/ | Office | Cardiology | Randell Franks, | | | 2019 | Visit | | [address] | | | | | | [place], [place] | | | | | | [address] | | | | | | [phone] | | | | | | | | +--------+ + + + + documented as of this encounter Visit Diagnoses Not on filedocumented in this encounter"
--- OUTSIDE RECORDS SUMMARY | ~2019-06-25 | XMS | Encounter Summary ---
Demographics + + + | Address | [address] | | | [place] [address] | + + + | Home Phone [...] [place], [place] | | | | | [address] | | + + + + + | Ellie Vang | ECON | Unknown | | + + + + + Care Team Providers + +------+ + | Care Healthcare Sales Representative Name | Role | Phone [...] Visit | Medicine Clinic at | J, BOX MACHINE OPERATOR | (Primary Dx); | | | | [facility] | | Dysphagia, | | | | [address] | | unspecified type; | | | | Mail Code: OC8PM | | Hypertension, | | | | Center for [facility] | | unspecified type; | | | | and Healing, | | Hyperlipidemia, | | | | Building [address] | | unspecified | | | | [place], [place] | | hyperlipidemia type; | | | | [address] | | Diastolic | | | | [phone] | | congestive heart | | | [...] | | Endotracheal Tube; 7; Oral; | SIZER MACHINE | SIZER MACHINE | | | Cuffed; 06/23/18; 1542 | [...] encounter Patient Instructions Patient Instructions Tiara Mckeon, BOX MACHINE OPERATOR - 06/16/2018 3:15 PM [facility] PREOPERATIVE INSTRUCTIONS Please consider having an [...] your procedure. Surgery check-in location: Admitting - [facility], [facility] Surgery Check in Time: The Preoperative [...] after office hours, call the [facility] flat grinder operator at [phone] and ask them to page him or [...] weight loss and diuretic tx, follows with tubular splitting machine tender Hypothyroidism stabilized on hormone replacement Type 2 [...] renal failure no electrolyte abnormalities no dialysis Urology/Telehealth Nurse Educator: Urologic Conditions: nephrolithiasis Endo: Diabetes: type 2 [...] sublingual Place under tongue once daily. CALCIUM CRB&TGR-V2-HII17-GENIS ORAL Take 2 tablets by mouth two [...] 150 cm or less [address] [facility] Pandey Family history reviewed / updated Family [...] weight loss and diuretic tx, follows with tubular splitting machine tender. Appears comp ensated today. Hypothyroidism stabilized on hormone replacement. Take on DOS as usual Type 2 diabetes, well controlled with A1c 6.1 Thank you for the opportunity to contribute to this patient's care. HILDA Lagos [facility] PREOPERATIVE MEDICINE CLINIC AT [facility] 4TH FLOOR [address] [facility] [address] I advised the patient [...] Rd | | | | | | [place], [place] | | | | | | [address] | | | | | | [phone] | | | | | | | | +--------+ + + + + | 08/19/ | Surgery | Surgery | Chilo, | OPEN VENTRAL HERNIA | | 2019 | | | MD [address] | REPAIR WITH | | | | | [address] | BIOLOGICAL MESH | | | | | [place], [place] | | | | | | [address] | | | | | | [phone] | | | | | | | | +--------+ + + + + | 09/15/ | Office | Cardiology | Randell Franks, | | | 2019 | Visit | | [address] | | | | | | [place], [place] | | | | | | [address] | | | | | | [phone] | | | | | | | [...]
--- OUTSIDE RECORDS SUMMARY | ~2019-06-25 | XMS | Encounter Summary ---
Demographics + + + | Address | [address] | | | [place] [address] | + + + | Home Phone [...] [place], [place] | | | | | [address] | | + + + + + | Ellie Vang | ECON | Unknown | | + + + + + Care Team Providers + +------+ + | Care Liquor Merchant Name | Role | Phone | [...] 2014 | | Preventive at [facility] | MD [address] | | | | | [address] | Ave [place], [place] | | | | | Mailcode: [facility] | [address] | | | | | [facility] | [phone] | | | | | and Healing, | | | | | | [address] | | | | | | [place], [place] | | | | | | [address] | | | | | | [phone] | | | +--------+ + + + [...] Rd | | | | | | [place], [place] | | | | | | [address] | | | | | | [phone] | | | | | | | | +--------+ + + + + | 08/19/ | Surgery | Surgery | Chilo, | OPEN VENTRAL HERNIA | | 2019 | | | MD Jorje [address] | REPAIR WITH | | | | | [address] | BIOLOGICAL MESH | | | | | [place], [place] | | | | | | [address] | | | | | | [phone] | | | | | | | | +--------+ + + + + | 09/15/ | Office | Cardiology | Randell Franks, | | | 2019 | Visit | | MD [address] | | | | | | Ave [place], [place] | | | | | | [address] | | | | | | [phone] | | | | | | | | +--------+ + + + + documented as of this encounter Visit Diagnoses Not on filedocumented in this encounter"
--- OUTSIDE RECORDS SUMMARY | ~2019-06-25 | XMS | Encounter Summary ---
Demographics + + + | Address | [address] | | | [place] [address] | + + + | Home Phone [...] Author | [facility] | | | and Jeffana | + + + | Organization | [facility] [...] Providers + +------+ + | Care Public Accountant Name | Role | Phone | + +------+ + PCP | Unavailable | + +------+ + Encounter Details +--------+ + + + + | Date | Type | Department | Care Team | Description | +--------+ + + + + | 12/02/ | Orders Only | [facility] | Conversion | | | 2017 | | NEPHROLOGY JESUS | Transaction, | | | | | [address] | Provider Unknown | | | | | [address] [place] | | | | | | [address] | (Fax) | | | | | [phone] | | | +--------+ + + + [...]
--- OUTSIDE RECORDS SUMMARY | ~2019-06-25 | XMS | Encounter Summary ---
Demographics + + + | Address | [address] | | | [place] [address] | + + + | Home Phone [...] [place], [place] | | | | | [address] | | + + + + + | Ellie Vang | ECON | Unknown | | + + + + + Care Team Providers + +------+ + | Care Supervisor Modern Languages Name | Role | Phone | + [...] Lesly | | | | | Mailcode: Reagan | [place], [place] | | | | | [facility] and | [address] | | | | | [facility] 2 | [phone] | | | | | [place], [place] | | | | | | [address] | | | | | | [phone] | | | +--------+ + + + [...] Rd | | | | | | [place], [place] | | | | | | [address] | | | | | | [phone] | | | | | | | | +--------+ + + + + | 08/19/ | Surgery | Surgery | Chilo, | OPEN VENTRAL HERNIA | | 2019 | | | MD Jorje [address] | REPAIR WITH | | | | | [address] | BIOLOGICAL MESH | | | | | [place], [place] | | | | | | [address] | | | | | | [phone] | | | | | | | | +--------+ + + + + | 09/15/ | Office | Cardiology | Randell Franks, | | | 2019 | Visit | | [address] | | | | | | Ave [place], [place] | | | | | | [address] | | | | | | [phone] | | | | | | | | +--------+ + + + + documented as of this encounter Visit Diagnoses Not on filedocumented in this encounter"
--- OUTSIDE RECORDS SUMMARY | ~2019-06-25 | XMS | Encounter Summary ---
Demographics + + + | Address | [address] | | | [place] [address] | + + + | Home Phone [...] [place], [place] | | | | | [address] | | + + + + + | Ellie Vang | ECON | Unknown | | + + + + + Care Team Providers + +------+ + | Care Squirrel Man Name | Role | Phone | [...] | | | | | | [place] [address] | | | | | | [phone] | | | +--------+ + + + [...] Rd | | | | | | [place], [place] | | | | | | [address] | | | | | | [phone] | | | | | | | | +--------+ + + + + | 08/19/ | Surgery | Surgery | Chilo, | OPEN VENTRAL HERNIA | | 2019 | | | MD J[address] | REPAIR WITH | | | | | [address] | BIOLOGICAL MESH | | | | | [place] | | | | | | [address] | | | | | | [phone] | | | | | | | | +--------+ + + + + | 09/15/ | Office | Cardiology | Randell Franks, | | | 2019 | Visit | | [address] | | | | | | [place] | | | | | | [address] | | | | | | [phone] | | | | | | | | +--------+ + + + + documented as of this encounter Visit Diagnoses Not on filedocumented in this encounter"
--- OUTSIDE RECORDS SUMMARY | ~2019-06-25 | XMS | Encounter Summary ---
Demographics + + + | Address | [address] | | | [place] [address] | + + + | Home Phone [...] [place], [place] | | | | | [address] | | + + + + + | Ellie Vang | ECON | Unknown | | + + + + + Care Team Providers + +------+ + | Care Face Burler Name | Role | Phone | + [...] | Review | Center at [facility] [address] | MD | Decision | | | | [address] | | | | | | Mailcode: [place] | | | | | | [facility] and | | | | | | [facility] 2 | | | | | | [place], [place] | | | | | | [address] | | | | | | [phone] | | | +--------+ + + + [...] Rd | | | | | | [place], [place] | | | | | | [address] | | | | | | [phone] | | | | | | | | +--------+ + + + + | 08/19/ | Surgery | Surgery | Chilo | OPEN VENTRAL HERNIA | | 2019 | | | MD [address] | REPAIR WITH | | | | | [address] | BIOLOGICAL MESH | | | | | [place], [place] | | | | | | [address] | | | | | | [phone] | | | | | | | | +--------+ + + + + | 09/15/ | Office | Cardiology | Randell Franks, | | | 2019 | Visit | | [address] | | | | | | [place] | | | | | | [address] | | | | | | [phone] | | | | | | | | +--------+ + + + + documented as of this encounter Visit Diagnoses Not on filedocumented in this encounter"
--- OUTSIDE RECORDS SUMMARY | ~2019-06-25 | XMS | Encounter Summary ---
Demographics + + + | Address | [address] | | | [place] [address] | + + + | Home Phone [...] [place], [place] | | | | | [address] | | + + + + + | Ellie Vang | ECON | Unknown | | + + + + + Care Team Providers + +------+ + | Care Sales Store Checker Name | Role | Phone | [...] Lesly | | | | | Mailcode: [place] | [place], [place] | | | | | [facility] and | [address] | | | | | [facility] 2 | [phone] | | | | | [place], [place] | | | | | | [address] | | | | | | [phone] | | | +--------+ + + + [...] [place] | | | | | | [address] | | | | | | [phone] | | | | | | | | +--------+ + + + + | 08/19/ | Surgery | Surgery | Chilo, | OPEN VENTRAL HERNIA | | 2019 | | | MD Jor[address] | REPAIR WITH | | | | | [address] | BIOLOGICAL MESH | | | | | [place], [place] | | | | | | [address] | | | | | | [phone] | | | | | | | | +--------+ + + + + | 09/15/ | Office | Cardiology | Randell Franks, | | | 2019 | Visit | | [address] | | | | | | Ave [place], [place] | | | | | | [address] | | | | | | [phone] | | | | | | | | +--------+ + + + + documented as of this encounter Visit Diagnoses Not on filedocumented in this encounter"
--- OUTSIDE RECORDS SUMMARY | ~2019-06-25 | XMS | Encounter Summary ---
Demographics + + + | Address | [address] | | | [place] [address] | + + + | Home Phone [...] [place], [place] | | | | | [address] | | + + + + + | Ellie Vang | ECON | Unknown | | + + + + + Care Team Providers + +------+ + | Care Specialist Physicians Name | Role | Phone | + +------+ + | Fadi Goodrich DO | PCP | | + +------+ + Encounter Details +--------+ + + + + | Date | Type | Department | Care Team | Description | +--------+ + + + + | 02/10/ | Abstract | Digestive Health | Hernandez Brian, | | | 2012 | | Center at [facility] [address] | MD [address] | | | | | [address] | [facility] | | | | | Mailcode: Center | [place], [place] | | | | | [facility] Health and | [address] | | | | | [facility], [facility] 2 | [phone] | | | | | [place], [place] | | | | | | [address] | | | | | | [phone] | | | +--------+ + + + [...] Rd | | | | | | [place], [place] | | | | | | [address] | | | | | | [phone] | | | | | | | | +--------+ + + + + | 08/19/ | Surgery | Surgery | Chilo, | OPEN VENTRAL HERNIA | | 2019 | | | MD Jorje [address] | REPAIR WITH | | | | | [address] | BIOLOGICAL MESH | | | | | [facility] [place] | | | | | | [address] | | | | | | [phone] | | | | | | | | +--------+ + + + + | 09/15/ | Office | Cardiology | Randell Franks, | | | 2019 | Visit | | [address] | | | | | | [place] [facility] [place] | | | | | | [address] | | | | | | [phone] | | | | | | | | +--------+ + + + + documented as of this encounter Visit Diagnoses Not on filedocumented in this encounter"
--- OUTSIDE RECORDS SUMMARY | ~2019-06-25 | XMS | Encounter Summary ---
Demographics + + + | Address | [address] | | | [place] [address] | + + + | Home Phone [...] + | Katalina Padilla | ECON | [address] | | | | | [place], [place] | | | | | [address] | | + + + + + | Ellie Vang | ECON | Unknown | | + + + + + Care Team Providers + +------+ + | Care Supervisor Rose Grading Name | Role | Phone | + [...] | Pain | Diagnoses | Tilgner, | Plc Controls Engineer Psych | | | | Management | Morbid | Shereen Murcia ACNP | [address] | | | | | obesity with | [address] | | | | | BMI of [address] | [address] | Mailcode: | | | | | and over, | [place], [place] | [address] | | | | | adult ([facility]) | [address] | for Health | | | | | Procedures | Phone: | and Healing, | | | | | CONSULT TO | [phone] | Building 1, | | | | | PAIN | Fax: | 15th Floor | | | | | MANAGEMENT | [phone] | [place], [place] | | | | | [place] | | [address] | | | | | PSYCHIATRIC | | Phone: | | | | | DIAGNOSTIC | | [phone] | | | | | EVAL, NO MED | | Fax: | | | | | [facility] [place] | | [phone] | | | | | PSYCH TSTNG | | | | | | | PSYCH/PHYS | | | +--------+---------+ + + + + Encounter Details +--------+---------+ + + + | Date | Type | Department | Care Team | Description | +--------+---------+ + + + | 10/02/ | Office | [facility] at [facility] | Leslie Mistry, | Morbid obesity | | 2018 | Visit | 15th Floor [address] | PhD [address] [facility] | ([facility]); Bipolar | | | | [address] Mailcode: | [address] Grace | affective disorder, | | | | [facility] Center for | [place], [place] | remission status | | | | Health and Healing, | [address] | unspecified ([facility]); | | | | | [phone] | BMI 60.0-69.9, adult | | | | Floor [place], [place] | | ([facility]); Anxiety | | | | [address] | | | | | | [phone] | | | +--------+---------+ + + + [...] Name: Elzbieta Cristina : 1975 Medical Record: [id number] Age: 42 y.o. Weight today, per patient report: 305 lbs Weight on 09/11/17: 389, BMI 73.54 Identifying Information: Elzbieta Crisitna is a 42 y.o. female who lives with her mother in [place], [place]. She was referred for psychological evaluation [...] of cereal with skim milk and a lithuanian yogurt L: white bread and cheese and [...] laundry. For enjoym ent the patient watches [employer] with her girlfriend. She is socially active [...] time I spent was approximately 60 minutes qbhg-sf-gabi with the patient and approxima tely 2 hours of rkc-exie-jf-face testing, interpreting and synthesizing results. Leslie Mistry, PhD Clinical Psychologist [facility] [address] [place] [address] and [facility], 15th [place] [address] Dhrpdnizeaaoih signed by Leslie Mistry, PhD at 10/08/2017 [...] Rd | | | | | | [place], [place] | | | | | | [address] | | | | | | [phone] | | | | | | | | +--------+ + + + + | 08/19/ | Surgery | Surgery | Chilo, | OPEN VENTRAL HERNIA | | 2019 | | | MD [address] | REPAIR WITH | | | | | [address] | BIOLOGICAL MESH | | | | | [place], [place] | | | | | | [address] | | | | | | [phone] | | | | | | | | +--------+ + + + + | 09/15/ | Office | Cardiology | Randell Franks, | | | 2019 | Visit | | [address] | | | | | | [place], [place] | | | | | | [address] | | | | | | [phone] | | | | | | | [...]
--- OUTSIDE RECORDS SUMMARY | ~2019-06-25 | XMS | Encounter Summary ---
Demographics + + + | Address | [address] | | | [place] [address] | + + + | Home Phone [...] [place], [place] | | | | | [address] | | + + + + + | Ellie Vang | ECON | Unknown | | + + + + + Care Team Providers + +------+ + | Care Side Stitching Machine Operator Name | Role | Phone [...] from | | 2016 | | at [facility] [address] | PERFORMANCE MANAGER [address] [facility] | | | | [place] Mailcode: | Ave [place], [place] | | | | | [address] | [address] | | | | | Health and Healing, | [phone] | | | | | [place] [address] [facility] [address] [facility] | | | | | | [place], [place] | | | | | | [address] | | | | | | [phone] | | | +--------+ + + + [...] [place] | | | | | | [address] | | | | | | [phone] | | | | | | | | +--------+ + + + + | 08/19/ | Surgery | Surgery | Chilo, | OPEN VENTRAL HERNIA | | 2019 | | | MD [address] | REPAIR WITH | | | | | [address] | BIOLOGICAL MESH | | | | | [place], [place] | | | | | | [address] | | | | | | [phone] | | | | | | | | +--------+ + + + + | 09/15/ | Office | Cardiology | Randell Franks, | | | 2020 | Visit | | [address] | | | | | | [place], [place] | | | | | | [address] | | | | | | [phone] | | | | | | | | +--------+ + + + + documented as of this encounter Visit Diagnoses Not on filedocumented in this encounter"
--- OUTSIDE RECORDS SUMMARY | ~2019-06-25 | XMS | Encounter Summary ---
Demographics + + + | Address | [address] | | | [place] [address] | + + + | Home Phone [...] + | Katalina Pdailla | ECON | [address] | | | | | [place], [place] | | | | | [address] | | + + + + + | Ellie Vang | ECON | Unknown | | + + + + + Care Team Providers + +------+ + | Care Wall Steamer Name | Role | Phone | + [...] | Review | Center at [facility] [address] | MD | Decision | | | | [address] | | | | | | Mailcode: [place] | | | | | | [facility] and | | | | | | [facility] 2 | | | | | | [place], [place] | | | | | | [address] | | | | | | [phone] | | | +--------+ + + + [...] Rd | | | | | | [place], [place] | | | | | | [address] | | | | | | [phone] | | | | | | | | +--------+ + + + + | 08/19/ | Surgery | Surgery | Chilo | OPEN VENTRAL HERNIA | | 2019 | | | MD [address] | REPAIR WITH | | | | | [address] | BIOLOGICAL MESH | | | | | [place], [place] | | | | | | [address] | | | | | | [phone] | | | | | | | | +--------+ + + + + | 09/15/ | Office | Cardiology | Randell Franks, | | | 2019 | Visit | | [address] | | | | | | [place] | | | | | | [address] | | | | | | [phone] | | | | | | | | +--------+ + + + + documented as of this encounter Visit Diagnoses Not on filedocumented in this encounter"
--- OUTSIDE RECORDS SUMMARY | ~2019-06-25 | XMS | Encounter Summary ---
Demographics + + + | Address | [address] | | | [place] [address] | + + + | Home Phone [...] [place], [place] | | | | | [address] | | + + + + + | Ellie Vang | ECON | Unknown | | + + + + + Care Team Providers + +------+ + | Care Balloon Seller Name | Role | Phone | + +------+ + | Fadi Goodrich DO | PCP | | + +------+ + Encounter Details +--------+ + + + + | Date | Type | Department | Care Team | Description | +--------+ + + + + | 07/06/ | Abstract | Digestive Health | Clinic, Surgery | | | 2016 | | [place] at [facility] [address] | | | | | | [address] | | | | | | Mailcode: [place] | | | | | | [facility] and | | | | | | [facility] 2 | | | | | | [place], [place] | | | | | | [address] | | | | | | [phone] | | | +--------+ + + + [...] [place] | | | | | | [address] | | | | | | [phone] | | | | | | | | +--------+ + + + + | 08/19/ | Surgery | Surgery | Chilo, | OPEN VENTRAL HERNIA | | 2019 | | | MD [address] | REPAIR WITH | | | | | [address] | BIOLOGICAL MESH | | | | | [place], [place] | | | | | | [address] | | | | | | [phone] | | | | | | | | +--------+ + + + + | 09/15/ | Office | Cardiology | Randell Franks, | | | 2019 | Visit | | MD [address] | | | | | | Ave [place], [place] | | | | | | [address] | | | | | | [phone] | | | | | | | | +--------+ + + + + documented as of this encounter Visit Diagnoses Not on filedocumented in this encounter"
--- OUTSIDE RECORDS SUMMARY | ~2019-06-25 | XMS | Encounter Summary ---
Demographics + + + | Address | [address] | | | [place] [address] | + + + | Home Phone [...] [place], [place] | | | | | [address] | | + + + + + | Ellie Vang | ECON | Unknown | | + + + + + Care Team Providers + +------+ + | Care Annealer Name | Role | Phone | + [...] Diabetes & | Morbid | Kathy M, DIRECTOR CORPORATE SECURITY | [address] | | | | Metabolism | obesity | [address] | | | | | ([facility]) | [address], | [address] | | | | | Procedures | [address] | Physician's | | | | | CONSULT TO | [place], [place] | Pavilion | | | | | ENDO | [address] | Physician's | | | | | [address] | Phone: | Pavilion | | | | | | [phone] | [place], [place] | | | | | | Fax: | [address] | | | | | | [phone] | Phone: | | | | | | | [phone] | | | | | | | Fax: | | | | | | | [phone] | +--------+--------+ + + + + Encounter [...] | | Center at Physicians | [place], [place] | (Primary Dx); Morbid | | | | Pavilion [address] | [address] | obesity (HCC) | | | | [address] | [phone] | | | | | Physician's | | | | | | Pavilion | | | | | | Physician's Pavilion | | | | | | [place], [place] | | | | | | [address] | | | | | | [phone] | | | +--------+---------+ + + + [...] Rd | | | | | | [place], [place] | | | | | | [address] | | | | | | [phone] | | | | | | | | +--------+ + + + + | 08/19/ | Surgery | Surgery | Chilo, | OPEN VENTRAL HERNIA | | 2019 | | | MD [address] | REPAIR WITH | | | | | [address] | BIOLOGICAL MESH | | | | | [place], [place] | | | | | | [address] | | | | | | [phone] | | | | | | | | +--------+ + + + + | 09/15/ | Office | Cardiology | Randell Franks, | | | 2019 | Visit | | [address] | | | | | | [place], [place] | | | | | | [address] | | | | | | [phone] | | | | | | | [...]
--- OUTSIDE RECORDS SUMMARY | ~2019-06-25 | XMS | Encounter Summary ---
Demographics + + + | Address | [address] | | | [place] [address] | + + + | Home Phone [...] | Author | [facility] | | | and [place]ana | + + + | Organization | [facility] | [...] Providers + +------+ + | Care Sales Lead Name | Role | Phone | + +------+ + PCP | Unavailable | + +------+ + Encounter Details +--------+ + + + + | Date | Type | Department | Care Team | Description | +--------+ + + + + | 12/23/ | Orders Only | [facility] | Conversion | | | 2017 | | NEPHROLOGY JESUS | Transaction, | | | | | [address] | Provider Unknown | | | | | [address] [place] | | | | | | [address] | (Fax) | | | | | [phone] | | | +--------+ + + + [...]
--- OUTSIDE RECORDS SUMMARY | ~2019-06-25 | XMS | Encounter Summary ---
Demographics + + + | Address | [address] | | | [place] [address] | + + + | Home Phone [...] [place], [place] | | | | | [address] | | + + + + + | Ellie Vang | ECON | Unknown | | + + + + + Care Team Providers + +------+ + | Care Director Of Extension Work Name | Role | Phone | [...] Randell | | | | | | [address] [address] | [address] | | | | | | [address], | Ave | | | | | | [address] | [place], [place] | | | | | | [place], [place] | [address] | | | | | | [address] | Phone: | | | | | | Phone: | [phone] | | | | | | [phone] | Fax: | | | | | | Fax: | [phone] | | | | | | [phone] | | +--------+--------+ + + + + Encounter Details +--------+---------+ + + + | Date | Type | Department | Care Team | Description | +--------+---------+ + + + | 08/29/ | Office | Cardiology | Randell Franks, | HTN (hypertension) | | 2013 | Visit | Preventive at [facility] | MD [address] | (Primary Dx); 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[place], [place]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 | | | | Mailcode: [facility] | [address] | ([facility]); Morbid | | | | [facility] | [phone] | obesity (HCC) | | | | and Healing, | | | | | | [address] | | | | | | [place], [place] | | | | | | [address] | | | | | | [phone] | | | +--------+---------+ + + + [...] 2019 | Encounter | | MD Demond Recnios | | | | | | [address] | | | | | | [place], [place] | | | | | | [address] | | | | | | [phone] | | | | | | | | +--------+ + + + + | 08/19/ | Surgery | Surgery | Chilo, | OPEN VENTRAL HERNIA | | 2019 | | | MD [address] | REPAIR WITH | | | | | [address] | BIOLOGICAL MESH | | | | | [place], [place] | | | | | | [address] | | | | | | [phone] | | | | | | | | +--------+ + + + + | 09/15/ | Office | Cardiology | Randell Franks, | | | 2019 | Visit | | MD [address] | | | | | | Ave [place], [place] | | | | | | [address] | | | | | | [phone] | | | | | | | [...]
--- OUTSIDE RECORDS SUMMARY | ~2019-06-25 | XMS | Encounter Summary ---
Demographics + + + | Address | [address] | | | [place] [address] | + + + | Home Phone [...] | Author | [facility] | | | and Jeffana | + + + | Organization | [facility] | | [...] Providers + +------+ + | Care Food Technician Name | Role | Phone | + +------+ + PCP | Unavailable | + +------+ + Encounter Details +--------+ + + + + | Date | Type | Department | Care Team | Description | +--------+ + + + + | 02/17/ | Orders Only | [facility] | Provider, | Pure | | 2019 | | SYSTEM GENERIC OP | [place], [address] | hyperglyceridemia; | | | | CONVERSION [address] | [address] | Hypokalemia; | | | | [address] [place], [place] | [place] [address] | Dehydration; | | | | [address] | | Hyperuricemia | | | | [phone] | | without signs of | | [...]
--- OUTSIDE RECORDS SUMMARY | ~2019-06-25 | XMS | Encounter Summary ---
Demographics + + + | Address | [address] | | | [place] [address] | + + + | Home Phone [...] [place], [place] | | | | | [address] | | + + + + + | Ellie Vang | ECON | Unknown | | + + + + + Care Team Providers + +------+ + | Care Sales Representative Livestock Name | Role | Phone | [...] 2015 | | Preventive at [facility] | [address] | (phentermine 37.5 mg | | | | [address] | Ave [facility] [place] | ) | | | | Mailcode: [facility] | [address] | | | | | [facility] | [phone] | | | | | and [address], | | | | | | [address] | | | | | | [place], [place] | | | | | | [address] | | | | | | [phone] | | | +--------+--------+ + + + [...] | | | | | | [place] | | | | | | [address] | | | | | | [phone] | | | | | | | | +--------+ + + + + | 08/19/ | Surgery | Surgery | Chilo, | OPEN VENTRAL HERNIA | | 2019 | | | MD [address] | REPAIR WITH | | | | | [address] | BIOLOGICAL MESH | | | | | [place], [place] | | | | | | [address] | | | | | | [phone] | | | | | | | | +--------+ + + + + | 09/15/ | Office | Cardiology | Randell Franks, | | | 2020 | Visit | | [address] | | | | | | [place], [place] | | | | | | [address] | | | | | | [phone] | | | | | | | | +--------+ + + + + documented as of this encounter Visit Diagnoses Not on filedocumented in this encounter"
--- OUTSIDE RECORDS SUMMARY | ~2019-06-25 | XMS | Encounter Summary ---
Demographics + + + | Address | [address] | | | [place] [address] | + + + | Home Phone [...] [place], [place] | | | | | [address] | | + + + + + | Ellie Vang | ECON | Unknown | | + + + + + Care Team Providers + +------+ + | Care Arcade Games Mechanic Name | Role | Phone | [...] | | 2015 | | Center at [facility] [address] | [address] | | | | | [address] | Lesly Gutiérrez [place], | | | | | Mailcode: [place] | [place] [address] | | | | | for Health and | | | | | | [facility], [address] [address] | | | | | | [place], [place] | | | | | | [address] | | | | | | [phone] | | | +--------+ + + + [...] [place] | | | | | | [address] | | | | | | [phone] | | | | | | | | +--------+ + + + + | 08/19/ | Surgery | Surgery | Chilo, | OPEN VENTRAL HERNIA | | 2019 | | | MD [address] | REPAIR WITH | | | | | [address] | BIOLOGICAL MESH | | | | | [place], [place] | | | | | | [address] | | | | | | [phone] | | | | | | | | +--------+ + + + + | 09/15/ | Office | Cardiology | Randell Franks, | | | 2020 | Visit | | MD [address] | | | | | | [place], [place] | | | | | | [address] | | | | | | [phone] | | | | | | | | +--------+ + + + + documented as of this encounter Visit Diagnoses Not on filedocumented in this encounter"
--- OUTSIDE RECORDS SUMMARY | ~2019-06-25 | XMS | Encounter Summary ---
Demographics + + + | Address | [address] | | | [place] [address] | + + + | Home Phone [...] [place], [place] | | | | | [address] | | + + + + + | Ellie Vang | ECON | Unknown | | + + + + + Care Team Providers + +------+ + | Care Transmission Supervisor Name | Role | Phone | [...] | | 2014 | | Preventive at [facility] | [address] | (Phentermine); | | | | [address] | [place], [place] | Refill Request | | | | Mailcode: [facility] | [address] | | | | | [facility] | [phone] | | | | | and [address], | | | | | | [address] | | | | | | [place], [place] | | | | | | [address] | | | | | | [phone] | | | +--------+--------+ + + + [...] [place] | | | | | | [address] | | | | | | [phone] | | | | | | | | +--------+ + + + + | 08/19/ | Surgery | Surgery | Chilo, | OPEN VENTRAL HERNIA | | 2019 | | | MD Demond Recinos | REPAIR WITH | | | | | [address] | BIOLOGICAL MESH | | | | | [place], [place] | | | | | | [address] | | | | | | [phone] | | | | | | | | +--------+ + + + + | 09/15/ | Office | Cardiology | Randell Franks, | | | 2019 | Visit | | [address] | | | | | | [place], [place] | | | | | | [address] | | | | | | [phone] | | | | | | | | +--------+ + + + + documented as of this encounter Visit Diagnoses Not on filedocumented in this encounter"
--- OUTSIDE RECORDS SUMMARY | ~2019-06-25 | XMS | Encounter Summary ---
Demographics + + + | Address | [address] | | | [place] [address] | + + + | Home Phone [...] [place], [place] | | | | | [address] | | + + + + + | Ellie Vang | ECON | Unknown | | + + + + + Care Team Providers + +------+ + | Care Family Protection Specialist Name | Role | Phone [...] | [facility] | | | with SPRING INSPECTOR | | hypertension | [address] | [address] | | | | | Right | [address] | [address] | | | | | heart | [place], [place] | Mailcode: | | | | | failure | [address] | Center for | | | | | ([facility]) Type | Phone: | Health and | | | | | 2 diabetes | [phone] | Healing, | | | | | mellitus | Fax: | [address] | | | | | without | [phone] | [place], [place] | | | | | complication | | [address] | | | | | , with | | Phone: | | | | | long-term | | | | | | | current use | | Fax: | | | | | of insulin | | [phone] | | | | | ([facility] [...] | 2018 | Visit | Center at [facility] [address] | [address] | BMI of 70 and over, | | | | [address] | [place], [place] | adult ([facility]) (Primary | | | | Mailcode: Center | [address] | Dx); Diabetes | | | | for [employer] and | [phone] | mellitus type 2 | | | | [facility], [address] | | without retinopathy | | | | [place], [place] | | ([facility]); | | | | [address] | | Intertriginous | | | | [phone] | | candidiasis; PCOS | | | [...] PDTPlease visit with our [facility] Foundry Manager (RD) for instructions about your Bariatric diet, assistance with calorie c ounts, tips and tricks for working with your diet restrictions, and recipes after bariatric surgery. Daily yogurt; even just 1 tablespoon twice a day will provide enough probiotics to optimize digestion. Try to use a high-quality, probiotic-dense yogurt (eg Zaria's, Kobifield, Stacie lala Kefir, Multilith Operator Duke's Japanese Yogurt). Remember to chew your [...] to the healing stomach. There are also fci complications of poor wound healing and gastric [...] 1 tablet by mouth once daily CALCIUM CRB&OKH-H3-[id number]-GENIS ORAL Take 2 tablets by mouth two [...] History Narrative Updated 11/09/15 She lives in [place] with her mother and her sister (also her caregiver) lives in an artment/duplex below. She has 2 grandchildren (age 4 and 7) who live with her daughter and son-in-law Her boyfriend lives in [place] HFpEF, DM2, HTN, Sleep Apnea (unable to [...] program here and refer her to our alteration specialist who also has expertise in physical [...] 4-5% rate of reoperation over the terminal press operator (i.e. years), as well as other [...] and may approach 5%. We reviewed the [facility] consent form. We discussed [...] Rd | | | | | | [place], [place] | | | | | | [address] | | | | | | [phone] | | | | | | | | +--------+ + + + + | 08/19/ | Surgery | Surgery | Chilo, | OPEN VENTRAL HERNIA | | 2019 | | | MD Jorje [address] | REPAIR WITH | | | | | [address] | BIOLOGICAL MESH | | | | | [place], [place] | | | | | | [address] | | | | | | [phone] | | | | | | | | +--------+ + + + + | 09/15/ | Office | Cardiology | Randell Franks, | | | 2020 | Visit | | [address] | | | | | | [place], [place] | | | | | | [address] | | | | | | [phone] | | | | | | | [...] | | | | | over, adult ([facility]) [...] | | | | | determined by [facility] | | | | | | Laboratories. See | | | | | | Compliance Statement B: | | | | | | IndiaIdeas/CSPerformed | | | | | | by ALOS[place],[address] | | | | | | [facility] | | | | | | [address] | | | | | | [phone]. | | | | | | Ismael [...] [facility] | [address] | [place], [place] | | | UNIV PTH - INTFC | | [address] | | + + + + + [...] the MDRD equation recommended by the | [facility] | | National Kidney [...] [facility] | [address] [facility] | [place] [address] | | | SERVICES, CORE | PARK [...] NKECHI ROBERTS | [address] | [place] [address] | | | SERVICES, CORE | PARK [...] + | [facility] | [address] | [place] [address] | | | SERVICES, CORE | CLARENCE [...] | [facility] | [address] [facility] [facility] [facility] | [place] [address] | | | SERVICES, CORE | PARK [...] [facility] | [address] | [place] [address] | | | SERVICES, CORE | PARK [...] + | [facility] | [address] | [place] [address] | | | SERVICES, LYDIA | CLARENCE [...]
--- OUTSIDE RECORDS SUMMARY | ~2019-06-25 | XMS | Encounter Summary ---
Demographics + + + | Address | [address] | | | [place] [address] | + + + | Home Phone [...] [place], [place] | | | | | [address] | | + + + + + | Ellie Vang | ECON | Unknown | | + + + + + Care Team Providers + +------+ + | Care Mens Locker Room Attendant Name | Role | Phone [...] + + | 01/01/ | Emergency | [facility] Emergency | Fide Hester | | | 2017 - | | Department [address] | MD Raza [address] | | | | | [address] | [address] | | | 01/02/ | | [facility] | [place], [place] | | | 2017 | | [place], [place] | [address] | | | | | [address] | [phone] | | | | | [phone] | | | | | | | Jaime Yee, | | | | | | ANP [address] | | | | | | [address] | | | | | | [place], [place] | | | | | | [address] | | | | | | [phone] | | | | | | | | | | | | Sheree Aguiar MD | | | | | | [address] | | | | | | [place], [place] | | | | | | [address] | | | | | | | | | | | | Felix Cardoza, | | | | | | GRADES 1 THRU 6 VISITING TEACHER [address] | | | | | | [address] | | | | | | [place], [place] | | | | | | [address] | | | | | | [phone] | | | | | | | [...] ready for discharge. Thank you for choosing [facility] for your healthcare needs. Abdominal Hernia [...] living will and a durable power of district attorney for health care. Bring a copy [...] apply lotions, perfume s, deodorants, or nail micronesian. Do not shave the surgical site yourself. [...] Repair: Before Your Surgery", log into your Konnektid a ccount at [email or web address]. You can enter U288 in the "3ROAM Library" search box . Not on Konnektid? Review the Tourat section of your After Visit Summary for directions on anjel aguero to sign up. Current as of: March 04, 2016 Content Version: 11.2 6991-0111 [employer]Vue[employer]. Care instructions adapted under license by [facility]. If you have questions about a medical condition or this instr uction, always ask your healthcare professional. Beam[employer] disclaims any curly anty or liability for [...] changes in the way you eat. An public information specialist to help you be more active [...] Prepare for Weight-Loss Surgery", log into your Konnektid account at [email or web address]. You can enter C413 in the "3ROAM Library" s earch box. Not on Konnektid? Review the Konnektid section of your After Visit Summary for directions on anjel aguero to sign up. Current as of: May 08, 2016 Content Version: 11.2 9946-3982 Beam[employer]. Care instructions adapted under license by [facility]. If you have questions about a medical condition or this instr uction, always ask your healthcare professional. [employer] disclaims any curly anty or liability for [...] | | 0 | | | | CRB&NZR-V8-PSO98-GEN | mouth two times | | | [...] MD - 01/02/2017 7:49 AM PDT [facility] EMERGENCY GENERAL SURGERY [...] hernias, laci hobbs was flown from [place] with abdominal pain from a recurrent, reducible [...] uss with Dr. Moore. Mary Ball MD [id number] [facility] A [address] [address] documented in this en counter Plan of [...] Rd | | | | | | [place] | | | | | | [address] | | | | | | [phone] | | | | | | | | +--------+ + + + + | 08/19/ | Surgery | Surgery | Chilo, | OPEN VENTRAL HERNIA | | 2019 | | | MD Demond [address] | REPAIR WITH | | | | | [address] | BIOLOGICAL MESH | | | | | [place], [place] | | | | | | [address] | | | | | | [phone] | | | | | | | | +--------+ + + + + | 09/15/ | Office | Cardiology | Randell Franks, | | | 2019 | Visit | | [address] | | | | | | [place], [place] | | | | | | [address] | | | | | | [phone] | | | | | | | [...] | [address] | [place], [place] | | | JUSTINE DAWN OF JAKY | [facility] | [address] | | | TESTS | | | [...] [facility] | [address] | [place] [address] | | | SERVICES, CORE | CLARENCE [...] [facility] | [address] | [place], [place] | | | JUSTINE DAWN OF JAKY | [address] | [address] | | | TESTS | | | [...] | + + + + + | [facility] | [address] | [place] [address] | | | SERVICES, CORE | CLARENCE [...] [facility] | [address] | [place] [address] | | | LYDIA RANGEL | CLARENCE [...] | + + + + + | [facility] [facility] - | [address] | [place] [address] | | | [place] | | | [...] | + + + + + | [facility] | [address] | [place] [address] | | | SERVICES, CORE | CLARENCE [...] - KWAKU | [address] | [place], [place] | | | [facility] DA[facility] | [facility] | [address] | | | TESTS | | | [...] [facility] | [address] | [place] [address] | | | SERVICES, | [address] [...] [facility] | [address] | [place] [address] | | | SERVICES, | [address] [...] [facility] | [address] | [place] [address] | | | SERVICES, CORE | CLARENCE [...] | [facility] | [address] [facility] | [place] [address] | | | SERVICES, CORE | CLARENCE [...] | + + + + + | [facility] | [address] | [place] [address] | | | SERVICES, CORE | CLARENCE BONNER | | | + + + + + ED INFORMATION EXCHANGE (01/01/2017 8:22 AM PDT) + + + + + + | Component | Value | Ref Range | Performed | Pathologist | | | | | At | Signature | + + + + + + | [facility] | [id number] | | [facility] | | | | [id number] | | MEDICAL | | | | [...] ---- | | | RADHA GOODRICH at [facility] | | | [facility] Unknown Primary Care | | | Unknown - Current Radha Goodrich DO | | | [phone] Primary Care | | | Unknown - Current | | + + + + + + + + | Performing | Address | City/State/Zipcode | Phone Number | | Organization | | | | + + + + + | [facility] | [address], | [place], [place] | [phone] | | TECHN[employer] | [address] | [address] | | + + + + + [...] | | | | First dose on [facility] 01/01/17 at 2100, | | | | | | | Last dose on [place] 01/04/17 at 0700 | | | | [...] | | | | | | | [facility] 01/01/17 at 2200, Until | | [...] | | | | First dose on [facility] 01/01/17 at 1945, | | AM [...] | | | | ONCE, 1 dose, [facility] 01/01/17 at 0945 | | AM [...]
--- OUTSIDE RECORDS SUMMARY | ~2019-06-25 | XMS | Encounter Summary ---
Demographics + + + | Address | [address] | | | [place] [address] | + + + | Home Phone [...] [place], [place] | | | | | [address] | | + + + + + | Ellie Vang | ECON | Unknown | | + + + + + Care Team Providers + +------+ + | Care [place] Dental Lab Technician Name | Role | Phone [...] Medical Records | | 2018 | | [place] [address] | [address] | Review | | | | Ave Mailcode: CH4S | [place], [place] | | | | | [facility] | [address] | | | | | and [address], | [phone] | | | | | [place] [address] | | | | | | Floor [place], [place] | | | | | | [address] | | | | | | [phone] | | | +--------+ + + + [...] [place] | | | | | | [address] | | | | | | [phone] | | | | | | | | +--------+ + + + + | 08/19/ | Surgery | Surgery | Chilo, | OPEN VENTRAL HERNIA | | 2019 | | | MD [address] | REPAIR WITH | | | | | [address] | BIOLOGICAL MESH | | | | | [place], [place] | | | | | | [address] | | | | | | [phone] | | | | | | | | +--------+ + + + + | 09/15/ | Office | Cardiology | Randell Franks, | | | 2020 | Visit | | [address] | | | | | | [place], [place] | | | | | | [address] | | | | | | [phone] | | | | | | | | +--------+ + + + + documented as of this encounter Visit Diagnoses Not on filedocumented in this encounter"
--- OUTSIDE RECORDS SUMMARY | ~2019-06-25 | XMS | Encounter Summary ---
Demographics + + + | Address | [address] | | | [place] [address] | + + + | Home Phone [...] + | Author | [facility] | | | and Jeffana | + + + | Organization | [facility] | [...] Team Providers + +------+ + | Care Explosives Detonator Name | Role | Phone | + [...] [address] | | | | | [place], [place] | [place] [address] | | | | | [address] | [phone] | | | | | [phone] | | | +--------+ + + + [...] | | to assess segmental wall motion, [place] visually estimates LVEF | | | >70%. [...] + + + | Patient Name: Elzbieta Crisitna Date of : 1975 | | | Performing Physician: Edson Cruz DO | | | | | | INDICATIONS SOB CONCLUSIONS 1. See | | | Dictation. TDS. Sinus. 2. Cardiac chamber dimensions grossly NML. | | | LV systolic and diastolic functions grossly NML, unable to assess | | | segmental wall motion, [place] visually estimates LVEF >70%. RV | | [...] not well visualized. MEASUREMENTS | | | Linseed Oil Press Tender: JESSICA Authenticated by: Edson Cruz DO | [...] to assess | | segmental wall motion, [place] visually estimates LVEF >70%. RV grossly NML. [...] | IVC was not well visualized. MEASUREMENTS Linseed Oil Press Tender: HONEYuthenticated by: | | Edson Jones Date/Time: 01-02-2016 19:12:36 IMPRESSION: 1. See Dictation. | | TDS. Sinus. 2. Cardiac chamber dimensions grossly NML. LV systolic and diastolic | | functions grossly NML, unable to assess segmental wall motion, [place] visually estimates | | LVEF >70%. RV [...] | |MEASUREMENTS | | | | | |Linseed Oil Press Tender: JESSICA | |Authenticated by: Edson Cruz DO | |Report Date/Time: 01-02-2016 19:12:36 | | | |IMPRESSION: | |1. See Dictation. TDS. Sinus. 2. Cardiac chamber dimensions grossly NML. LV systolic and diastolic functions grossly NML, unable to assess segmental wall motion, [place] visually es timates LVEF >70%. RV grossly | |NML. 3. Aortic valve sclerotic, no /AI | | observed. Mitral and Tricuspid valves grossly NML, Pulmonic valve not seen well. Trace T R. 4. No Pericardial effusion. 5. IVC not seen well. | + + documented in this encounter Visit Diagnoses Not on filedocumented in this encounter"
--- OUTSIDE RECORDS SUMMARY | ~2019-06-25 | XMS | Encounter Summary ---
Demographics + + + | Address | [address] | | | [place] [address] | + + + | Home Phone [...] [place], [place] | | | | | [address] | | + + + + + | Ellie Vang | ECON | Unknown | | + + + + + Care Team Providers + +------+ + | Care Radio Operator Ground Name | Role | Phone | + [...] | | | | | Ventral | [address] | [id number] | | | | | hernia | Phone: | [place] | | | | | without | [phone] | [address] | | | | | obstruction | Fax: | [place], | | | | | or gangrene | [phone] | [place] [address] | | | | | Mixed | | Phone: | | | | | hyperlipidem | | [phone] | | | | | ia Diabetes | | Fax: | | | | | mellitus | | [phone] | | | | | type 2 [...] | | | | | | MA UPPER GI | | | | | | | ENDOSCOPY,BI | | | | | | | OPSY [place] | | | | | | [...] | | | | Mailcode: Center | [address] | Ventral hernia | | | | for Health and | [phone] | without obstruction | | | | Healing, Building [address] | | or gangrene; Mixed | | | | [place], [place] | | hyperlipidemia; | | | | [address] | | 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[phone] | | type 2 without | | [...] to POC and will call or send Temnos message if any issues. documented in this [...] tongue once daily., Disp: , Rfl: CALCIUM CRB&OWA-W7-VCI32-GENIS ORAL, Take 2 tablets by mouth two [...] Dr. Andie Brian Incisional hernia repair 03/01/2015 [facility]/ Dr. Cantu. Primary fascial closure and scar excision Lap gastric byp, and nilesh-en-y gastroenterostomy w/ nilesh limb 150 cm or less 8 [facility] Social History Social History Marital [...] daughter and son-in-law Her boyfriend lives in [place] HFpEF, DM2, HTN, Sleep Apnea (unable to [...] program here and refer her to our mechanical integrity specialist who also has expertise in [...] and documenting after this visit. Ronna SANTOSP DIRECTOR BUSINESS TRAVEL Bariatric Surgery Nurse Practitioner [facility] | [address] | [place], [place] | [address] | documented in this e ncounter Plan [...] [place] | | | | | | [address] | | | | | | [phone] | | | | | | | | +--------+ + + + + | 08/19/ | Surgery | Surgery | Chilo | OPEN VENTRAL HERNIA | | 2019 | | | MD [address] | REPAIR WITH | | | | | [address] | BIOLOGICAL MESH | | | | | [place] | | | | | | [address] | | | | | | [phone] | | | | | | | | +--------+ + + + + | 09/15/ | Office | Cardiology | Randell Franks, | | | 2019 | Visit | | [address] | | | | | | [place], [place] | | | | | | [address] | | | | | | [phone] | | | | | | | | +--------+ + + + + documented as of this encounter Results X-RAY MIRIAM CASTELLON (06/07/2018 9:47 AM PST) + + | Specimen | + + | | + + + + + | Narrative | Performed At | + + + | EXAM: Esophagram with air bag stripper radiograph HISTORY: RYGB 03/01/2018, | [facility] | | vomiting/pain ever since COMPARISON: 04/27/2018 CT TECHNIQUE: | RADIOLOGY VOICE | | Sinter Machine Operator radiograph was performed. Single contrast exam of the esophagus, | RECOGNITION 2 | | gastric pouch, and gastrojejunostomy in upright positioning. | | | Radiation dose reduction technique was maximized where appropriate | | | using pulsed fluoroscopy and fluoro-store images. Fluoro Time 57 | | | second(s) FINDINGS: Sinter Machine Operator shows stone in the upper [...] AM PST EXAM: Esophagram | | with air bag stripper radiograph HISTORY: RYGB 03/01/2018, vomiting/pain ever since COMPARISON: | | 04/27/2018 CT TECHNIQUE: Sinter Machine Operator radiograph was performed. Single contrast exam of the | | esophagus, gastric pouch, and gastrojejunostomy in upright positioning. Radiation dose | | reduction technique was maximized where appropriate using pulsed fluoroscopy and | | fluoro-store images. Fluoro Time 57 second(s) FINDINGS:Sinter Machine Operator shows stone in the upper [...] |Preliminary: Evy Ramirez MD | |Dictation initiated: Eyv Ramirez MD 06/07/2018 10:04 AM | + [...] [facility] | [address] | [place] [address] | | | SERVICES, CORE | CLARENCE [...] | [facility] | | considered for monitoring middle or intermediate school principal glycemic control in patients with: | LABORATORY [...] | [facility] | [address] [facility] | [place] [address] | | | SERVICES, SPECIAL | PARK [...] | | | | | determined by [employer] | | | | | | Laboratories. See | | | | | | Compliance Statement B: | | | | | | [employer]/CSPerformed | | | | | | by [employer],[address] | | | | | | [facility],[place] | | | | | | [address] | | | | | | [phone]. | | | | | | [facility] [...] REG | [address] | [place], [place] | | | [facility] | | [address] | | + + + + + [...] | [address] | [place] [address] | | | SERVICES, CORE | PARK [...] | [address] | [place] [address] | | | SERVICES, CORE | PARK [...] | + + + + + | [facility] | [address] | [place] [address] | | | SERVICES, CORE [...] | [address] | [place] [address] | | | SERVICES, CORE | PARK [...] | [address] | [place] [address] | | | SERVICES, CORE | PARK [...] BEHAVIORAL HEALTH | [address] | [place] [address] | | | SERVICES, LYDIA | CLARENCE [...]
--- OUTSIDE RECORDS SUMMARY | ~2019-06-25 | XMS | Encounter Summary ---
Demographics + + + | Address | [address] | | | [place] [address] | + + + | Home Phone [...] [place], [place] | | | | | [address] | | + + + + + | Ellie Vang | ECON | Unknown | | + + + + + Care Team Providers + +------+ + | Care Irrigation Equipment Remover Name | Role | Phone | [...] | | 2019 | | Preventive at [facility] | [address] | stop any | | | | [address] | Ave [facility] [place] | medications? ) | | | | Mailcode: [facility] | [address] | | | | | [facility] | [phone] | | | | | and Healing, | | | | | | [address] | | | | | | [place], [place] | | | | | | [address] | | | | | | [phone] | | | +--------+ + + + [...] Rd | | | | | | [place], [place] | | | | | | [address] | | | | | | [phone] | | | | | | | | +--------+ + + + + | 08/19/ | Surgery | Surgery | Chilo, | OPEN VENTRAL HERNIA | | 2019 | | | MD Jorje [address] | REPAIR WITH | | | | | [address] | BIOLOGICAL MESH | | | | | [place], [place] | | | | | | [address] | | | | | | [phone] | | | | | | | | +--------+ + + + + | 09/15/ | Office | Cardiology | Randell Franks, | | | 2019 | Visit | | [address] | | | | | | [place], [place] | | | | | | [address] | | | | | | [phone] | | | | | | | | +--------+ + + + + documented as of this encounter Visit Diagnoses Not on filedocumented in this encounter"
--- OUTSIDE RECORDS SUMMARY | ~2019-06-25 | XMS | Encounter Summary ---
Demographics + + + | Address | [address] | | | [place] [address] | + + + | Home Phone [...] [place], [place] | | | | | [address] | | + + + + + | Ellie Vang | ECON | Unknown | | + + + + + Care Team Providers + +------+ + | Care Review Engineer Name | Role | Phone | [...] [facility] [address] | RAIL SPECIALIST [address] [facility] | | | | [place] Mailcode: | Ave [place], [place] | | | | | [address] | [address] | | | | | Health and Healing, | [phone] | | | | | [place] [address] [facility] | | | | | | [place], [place] | | | | | | [address] | | | | | | [phone] | | | +--------+ + + + [...] [place] | | | | | | [address] | | | | | | [phone] | | | | | | | | +--------+ + + + + | 08/19/ | Surgery | Surgery | Chilo, | OPEN VENTRAL HERNIA | | 2019 | | | MD [address] | REPAIR WITH | | | | | [address] | BIOLOGICAL MESH | | | | | [place], [place] | | | | | | [address] | | | | | | [phone] | | | | | | | | +--------+ + + + + | 09/15/ | Office | Cardiology | Randell Franks, | | | 2020 | Visit | | [address] | | | | | | [place], [place] | | | | | | [address] | | | | | | [phone] | | | | | | | | +--------+ + + + + documented as of this encounter Visit Diagnoses Not on filedocumented in this encounter"
--- OUTSIDE RECORDS SUMMARY | ~2019-06-25 | XMS | Encounter Summary ---
Demographics + + + | Address | [address] | | | [place] [address] | + + + | Home Phone [...] [place], [place] | | | | | [address] | | + + + + + | Ellie Vang | ECON | Unknown | | + + + + + Care Team Providers + +------+ + | Care Turbinated Bone Grinder Name | Role | Phone | + +------+ + | Fadi Goodrich DO | PCP | | + +------+ + Encounter Details +--------+---------+ + + + | Date | Type | Department | Care Team | Description | +--------+---------+ + + + | 02/22/ | Office | Preoperative | Gay Hoff, | Preop examination | | 2018 | Visit | [facility] at | DNP,ANP [address] | (Primary Dx) | | | | [facility] | [address] | | | | | [address] | [place], [place] | | | | | Mail Code: OC8PM | [address] | | | | | [facility] | [phone] | | | | | and Healing, | | | | | | Building [address] | | | | | | [place], [place] | | | | | | [address] | | | | | | [phone] | | | +--------+---------+ + + + [...] or walk. Surgery check-in location: Admitting - [facility], ninth floor lobby Surgery Check in [...] it is after office hours, call the [facility] dope dry house operator at [phone] and ask them to page him or [...] d function per TTE ( 02/16/2017) from [facility] [employer]: Improved and stable. T2DM - controlled with [...] renal failure no electrolyte abnormalities no dialysis Urology/Supervisor Special Effects: Within Defined Limits except as noted below [...] mg by mouth two times daily. CALCIUM CRB&NGA-S0-PIB10-GENIS ORAL Take 2 tablets by mouth two [...] index of 70 and over in adult ([facility]) Myalgia and myositis Nausea Neck pain Numbness Osteoarthritis of knee Palpitations Pneumonia Shortness of breath Staphylococcal infection Stroke ([facility]) TIA (transient ischemic attack) due to Bromocriptine [...] Dr. Andie Brian Incisional hernia repair 03/01/2015 [facility]/ Dr. Cantu. Primary fascial closure and [...] 98ms, QTC 460ms, TTE ( 02/16/2017) - [employer] 1. Overall left ventricular systolic function is normal with, an EF between 60 - 65 %. 2. The right ventricle is normal in size and function. 3. No significant valvular abnormalities are noted. 4. In comparison to the previous (technically difficult) echocardiographic study done 01/01, no signfiicant changes are noted. TTE (02/17/2016) - [employer] Conclusions 1. There is normal left ventricular [...] and resp iratory change. TTE (11/07/2015) - [facility] Final Impressions: 1. The interpretation of images [...] d function per TTE ( 02/16/2017) form [facility]. Improved and stable. - Confirmed with [...] Advised to bring her own apparatus for [facility]. GERD - On omeprazole. Chronic Fluid retention [...] to this patient's care. Gay Hoff, ERENDIRA,ANP [facility] PREOPERATIVE MEDICINE CLINIC AT [facility] 4TH FLOOR [address] [facility] [address] [...] [place] | | | | | | [address] | | | | | | [phone] | | | | | | | | +--------+ + + + + | 08/19/ | Surgery | Surgery | Chilo, | OPEN VENTRAL HERNIA | | 2019 | | | MD [address] | REPAIR WITH | | | | | [address] | BIOLOGICAL MESH | | | | | [place], [place] | | | | | | [address] | | | | | | [phone] | | | | | | | | +--------+ + + + + | 09/15/ | Office | Cardiology | Randell Franks, | | | 2019 | Visit | | MD [address] | | | | | | Ave [place], [place] | | | | | | [address] | | | | | | [phone] | | | | | | | [...] +--------+ + + + | NM COLLECTION VENOUS | Routin | 02/22/2018 | [...] | + + + + + | [facility] | [address] | [place] [address] | | | SERVICES, CORE | CLARENCE [...] LABORATORY | [address] | [place] [address] | | | SERVICES, | [address] [...] [facility] | [address] | [place] [address] | | | SERVICES, | [address] [...] [facility] | [address] | [place] [address] | | | SERVICES, SPECIAL | CLARENCE [...] | | | LABORATORY | | | AZERBAIJANI | | | SERVICES, | | | [...] | + + + + + | [facility] | [address] | [place] [address] | | | CLAIRE, LYDIA | CLARENCE [...] DEPT OF | [address] | [place], [place] | | | CARDIOLOGY | [address] | [address] | | + + + + + documented in this encounter Visit Diagnoses + + | Diagnosis | + + | Preop examination - Primary Preoperative examination, unspecified | + + documented in this encounter
--- OUTSIDE RECORDS SUMMARY | ~2019-06-25 | XMS | Encounter Summary ---
Demographics + + + | Address | [address] | | | [place] [address] | + + + | Home Phone [...] [place], [place] | | | | | [address] | | + + + + + | Ellie Vang | ECON | Unknown | | + + + + + Care Team Providers + +------+ + | Care Special Class Welder Name | Role | Phone | + +------+ + | Fadi Goodrich DO | PCP | | + +------+ + Encounter Details +--------+ + + + + | Date | Type | Department | Care Team | Description | +--------+ + + + + | 11/06/ | Abstract | Digestive Health | Shereen Georges, | | | 2015 | | Center at [facility] [address] | ACNP [address] | | | | | [address] | Ave [place], [place] | | | | | Mailcode: [place] | [address] | | | | | for Health and | | | | | | [facility] 2 | | | | | | [facility] [place] | | | | | | [address] | | | | | | | [...] Rd | | | | | | [place], [place] | | | | | | [address] | | | | | | [phone] | | | | | | | | +--------+ + + + + | 08/19/ | Surgery | Surgery | Chilo, | OPEN VENTRAL HERNIA | | 2019 | | | MD Jorje [address] | REPAIR WITH | | | | | [address] | BIOLOGICAL MESH | | | | | [place], [place] | | | | | | [address] | | | | | | [phone] | | | | | | | | +--------+ + + + + | 09/15/ | Office | Cardiology | Randell Franks, | | | 2019 | Visit | | MD [address] | | | | | | Ave [place], [place] | | | | | | [address] | | | | | | [phone] | | | | | | | | +--------+ + + + + documented as of this encounter Visit Diagnoses Not on filedocumented in this encounter"
--- OUTSIDE RECORDS SUMMARY | ~2019-06-25 | XMS | Encounter Summary ---
Demographics + + + | Address | [address] | | | [place] [address] | + + + | Home Phone [...] [place], [place] | | | | | [address] | | + + + + + | Ellie Vang | ECON | Unknown | | + + + + + Care Team Providers + +------+ + | Care Rubber Mold Maker Name | Role | Phone | [...] | | | | | | | [address] | | | | | | | [address] | | | | | | | [place], | | | | | | | [place] | | | | | | | [address] | | | | | | | Phone: | | | | | | | [phone] | | | | | | | Fax: | | | | | | | [phone] | +--------+--------+ + + + + Encounter Details +--------+---------+ + + + | Date | Type | Department | Care Team | Description | +--------+---------+ + + + | 04/14/ | Office | Digestive Health | Hernandez Brian, | Morbid obesity (HCC) | | 2013 | Visit | Center at [facility] [address] | [address] | (Primary Dx); Type | | | | [address] | [address] | 2 diabetes mellitus | | | | Mailcode: Center | [place], [place] | ([facility]); AMARA | | | | for Health and | [address] | (obstructive sleep | | | | [facility] 2 | [phone] | apnea); Edema | | | | [place], [place] | | | | | | [address] | | | | | | [phone] | | | +--------+---------+ + + + [...] visit as recorded by Danay Lema. Danay Diza - 04/14/2013 10:44 AM PDT GENERAL SURGERY [...] this year, she was tr ansferred from [place] for surgical evaluation of possible incarcerated ventral [...] with close followup by her PCP in [place] in the interim. Dr. Guillory in [place] has been following her since January, with CT scan obtained at [facility] in [place] 02/09/2013 (images in IMPAX), demonstrating "recurrent hypogastric [...] to follow up with her providers at [facility] to include a visi t [...] r weight loss efforts. She saw a supervisor byproducts today and Melida came in to discuss [...] and well perfused. ABDOMEN: Type III pannus retirement to her knees. There is a well [...] Rd | | | | | | [place], [place] | | | | | | [address] | | | | | | [phone] | | | | | | | | +--------+ + + + + | 08/19/ | Surgery | Surgery | Chilo | OPEN VENTRAL HERNIA | | 2019 | | | MD [address] | REPAIR WITH | | | | | [address] | BIOLOGICAL MESH | | | | | [place], [place] | | | | | | [address] | | | | | | [phone] | | | | | | | | +--------+ + + + + | 09/15/ | Office | Cardiology | Randell Franks, | | | 2020 | Visit | | [address] | | | | | | [place], [place] | | | | | | [address] | | | | | | [phone] | | | | | | | | +--------+ + + + + documented as of this encounter Visit Diagnoses + + | Diagnosis | + + | Morbid obesity (HCC) - Primary Morbid obesity | + + | Type 2 diabetes mellitus ([facility]) Type II or unspecified type diabetes mellitus without | | mention of complication, not stated as uncontrolled | + + | AMARA (obstructive sleep apnea) Obstructive sleep apnea (adult) (pediatric) | + + | Edema | + + documented in this encounter
--- OUTSIDE RECORDS SUMMARY | ~2019-06-25 | XMS | Encounter Summary ---
Demographics + + + | Address | [address] | | | [place] [address] | + + + | Home Phone [...] [place], [place] | | | | | [address] | | + + + + + | Ellie Vang | ECON | Unknown | | + + + + + Care Team Providers + +------+ + | Care Pony Roll Finisher Name | Role | Phone | [...] [facility] | [address] | | | | | [address] | Ave [place], [place] | | | | | Mailcode: [facility] | [address] | | | | | [facility] | [phone] | | | | | and [facility], | | | | | | Building [address] | | | | | | [place], [place] | | | | | | [address] | | | | | | [phone] | | | +--------+ + + + [...] Rd | | | | | | [place], [place] | | | | | | [address] | | | | | | [phone] | | | | | | | | +--------+ + + + + | 08/19/ | Surgery | Surgery | Chilo, | OPEN VENTRAL HERNIA | | 2019 | | | MD [address] | REPAIR WITH | | | | | [address] | BIOLOGICAL MESH | | | | | [place], [place] | | | | | | [address] | | | | | | [phone] | | | | | | | | +--------+ + + + + | 09/15/ | Office | Cardiology | Randell Franks, | | | 2019 | Visit | | MD [address] | | | | | | [place], [place] | | | | | | [address] | | | | | | [phone] | | | | | | | | +--------+ + + + + documented as of this encounter Visit Diagnoses Not on filedocumented in this encounter"
--- OUTSIDE RECORDS SUMMARY | ~2019-06-25 | XMS | Encounter Summary ---
Demographics + + + | Address | [address] | | | [place] [address] | + + + | Home Phone [...] [place], [place] | | | | | [address] | | + + + + + | Ellie Vang | ECON | Unknown | | + + + + + Care Team Providers + +------+ + | Care Program Professional Name | Role | Phone | + +------+ + | Fadi Goodrich DO | PCP | | + +------+ + Encounter Details +--------+ + + + + | Date | Type | Department | Care Team | Description | +--------+ + + + + | 10/27/ | Abstract | Digestive Health | Clinic, Surgery | | | 2018 | | [facility] [address] | | | | | | [address] | | | | | | Mailcode: [place] | | | | | | [facility] | | | | | | [facility] 2 | | | | | | [place], [place] | | | | | | [address] | | | | | | [phone] | | | +--------+ + + + [...] [place] | | | | | | [address] | | | | | | [phone] | | | | | | | | +--------+ + + + + | 08/19/ | Surgery | Surgery | Chilo, | OPEN VENTRAL HERNIA | | 2019 | | | MD [address] | REPAIR WITH | | | | | [address] | BIOLOGICAL MESH | | | | | [place], [place] | | | | | | [address] | | | | | | [phone] | | | | | | | | +--------+ + + + + | 09/15/ | Office | Cardiology | Randell Franks, | | | 2019 | Visit | | MD [address] | | | | | | Ave [place], [place] | | | | | | [address] | | | | | | [phone] | | | | | | | | +--------+ + + + + documented as of this encounter Visit Diagnoses Not on filedocumented in this encounter"
--- OUTSIDE RECORDS SUMMARY | ~2019-06-25 | XMS | Encounter Summary ---
Demographics + + + | Address | [address] | | | [place] [address] | + + + | Home Phone [...] [place], [place] | | | | | [address] | | + + + + + | Ellie Vang | ECON | Unknown | | + + + + + Care Team Providers + +------+ + | Care Director Of Analytics Name | Role | Phone | [...] | | | [address] | [place], [place] | | | | | Mailcode: [address] | [address] | | | | | [facility] | [phone] | | | | | [address] [place], [place] | | | | | | [address] | | | | | | [phone] | | | +--------+---------+ + + + [...] Dr. Andie Brian Incisional hernia repair 02/2015 [facility]/ Dr. Cantu PHYSICAL EXAMINATION: BP 133/63 | [...] GENERAL SURGERY AT [facility] [address] [facility] Mailcode: [address] [place] [address] documented in this encounter Plan [...] | | | | | | [place], [place] | | | | | | [address] | | | | | | [phone] | | | | | | | | +--------+ + + + + | 08/19/ | Surgery | Surgery | Chilo, | OPEN VENTRAL HERNIA | | 2019 | | | MD [address] | REPAIR WITH | | | | | [address] | BIOLOGICAL MESH | | | | | [place], [place] | | | | | | [address] | | | | | | [phone] | | | | | | | | +--------+ + + + + | 09/15/ | Office | Cardiology | Randell Franks, | | | 2019 | Visit | | MD [address] | | | | | | Ave [place], [place] | | | | | | [address] | | | | | | [phone] | | | | | | | | +--------+ + + + + documented as of this encounter Visit Diagnoses + + | Diagnosis | + + | Incarcerated incisional hernia - Primary Incisional hernia with obstruction | + + documented in this encounter"
--- OUTSIDE RECORDS SUMMARY | ~2019-06-25 | XMS | Encounter Summary ---
Demographics + + + | Address | [address] | | | [place] [address] | + + + | Home Phone [...] [place], [place] | | | | | [address] | | + + + + + | Ellie Vang | ECON | Unknown | | + + + + + Care Team Providers + +------+ + | Care Supervisor Intermediates Name | Role | Phone | + [...] | [place] | | | with COMPANION | | hypertension | [address] | | | | | Right | [address] | [address] | | | | | heart | [place], [place] | [place], | | | | | failure | [address] | [place] | | | | | (FORMERLY [facility]) Type | Phone: | [address] | | | | | 2 diabetes | [phone] | | | | | | mellitus | Fax: | | | | | | without | [phone] | | | | | | complication | | | | | | | , with | | | | | | | long-term | | | | | | | current use | | | | | | | of insulin | | | | | | | ([facility]ERLY [facility]) | | | +--------+ + [...] | | | [address] | [facility] [address] | (Primary Dx); | | | | Mailcode: Center | [place], [place] | 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[facility] and | [address] | 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, 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) | | | | [place], [place] | | | | | | [address] | | | | | | [phone] | | | +--------+---------+ + + + [...] Follow-Up Patient referred by: Randell Franks MD [address] [place] [address] Documented time of visit: 2:36pm to 2:49 (13 minutes huwb-bk-eoxm with patient) Surgery: Gastric Bypass Date of [...] Medications since surgery: oral - appt with peoplesoft hcm consultant on the 9th Testing blood glucose: 92 [...] beef, cream of wheat, cream of mushroom, rwandan yogurt Fluid choices: water Supplementation: Flinstones, iron, [...] multivitamin & mineral (with iron) supplement, 2/day -3432-1637 mg calcium citrate with vitamin D/day (take in divided doses, not within 2 hour s of multivitamin or iron supplement) -500 mcg/day sublingual B12 supplement (or monthly injections) Continued to reinforce importance of mindful eating. Continue to increase physical activity. Follow up in 3 months or earlier as needed. Tejas Cevallos RD, LD Pager # [phone] signed by Tejas Cevallos RD at 05/27/2018 [...] Rd | | | | | | [place], [place] | | | | | | [address] | | | | | | [phone] | | | | | | | | +--------+ + + + + | 08/19/ | Surgery | Surgery | Chilo, | OPEN VENTRAL HERNIA | | 2019 | | | MD [address] | REPAIR WITH | | | | | [address] | BIOLOGICAL MESH | | | | | [place], [place] | | | | | | [address] | | | | | | [phone] | | | | | | | | +--------+ + + + + | 09/15/ | Office | Cardiology | Randell Franks, | | | 2020 | Visit | | [address] | | | | | | [place], [place] | | | | | | [address] | | | | | | [phone] | | | | | | | | +--------+ + + + + documented as of this encounter Procedures + +--------+ + + + | Procedure Name | Priori | Date/Time | Associated Diagnosis | Comments | | | ty | | | | + +--------+ + + + | TN MNT RE-ASSESSMNT | Routin | 05/27/2018 | [...]
--- OUTSIDE RECORDS SUMMARY | ~2019-06-25 | XMS | Encounter Summary ---
Demographics + + + | Address | [address] | | | [place] [address] | + + + | Home Phone [...] [place], [place] | | | | | [address] | | + + + + + | Ellie Vang | ECON | Unknown | | + + + + + Care Team Providers + +------+ + | Care Sales Ledger Clerk Name | Role | Phone | [...] Encounter | Procedural Unit | MD Barb [address] | | | | | ([facility] at [facility] [address] | [address] [place], [place] | | | | | [address] | [address] | | | | | Mailcode: [place] | [phone] | | | | | for Health and | | | | | | Healing, [address] | | | | | | [place], [place] | | | | | | [address] | | | | | | [phone] | | | +--------+ + + + [...] hours or on weekends and holiday Hospital Deck Engine Operator toll free [phone] ext. [phone] and have the GI doctor investor relations coordinator paged. The provider who performed your procedure: [...] | | 0 | | | | CRB&[id number]-[id number]-[id number]-GEN | mouth two times | | | [...] from the original. PRE PROCEDURE NOTE: MR# [id number] Subjective: Elzbieta Cristina is a 44 y.o. [...] | | | | | | [place], [place] | | | | | | [address] | | | | | | [phone] | | | | | | | | +--------+ + + + + | 08/19/ | Surgery | Surgery | Chilo, | OPEN VENTRAL HERNIA | | 2019 | | | MD Jorje [address] | REPAIR WITH | | | | | [address] | BIOLOGICAL MESH | | | | | [place], [place] | | | | | | [address] | | | | | | [phone] | | | | | | | | +--------+ + + + + | 09/15/ | Office | Cardiology | Randell Franks, | | | 2019 | Visit | | [address] | | | | | | Ave [place], [place] | | | | | | [address] | | | | | | [phone] | | | | | | | [...] + | MRN: | [facility] | | [id number] Date: 04/07/2019Patient Name: Elzbieta Curtis #: | ENDOSCOPY | | [id number] of : 1975CSN: [id number] Type: | | | AmbulatoryRoom: Endo 5Procedure: Upper GI | | | endoscopyIndications: Generalized abdominal pain, Nausea | | | with vomitingProviders: TAL LUND MD | | | (Doctor), KEERTHI BERNARD RN (Nurse), | | | EREN SLATER (Staffing Associate)Referring MD: SYLVIA Kilpatrick | | | [facility] Provider: Medicines: | | [...] | | | The Olympus [id number] Endoscope #[id number] | | | was introduced through the [...] ONCE, 1 dose, [facility] 04/07/19 at 1300 | | | | | | + +--------+ +-------+------+------+ +---+---+ | | | +---+---+ + +-------+ +--------+---+---+ | fentaNYL (SUBLIMAZE) injection | Given | 04/07/20 | 50 mcg | | | | intravenous, INTRAPROCEDURE PRN, | | 19 11:05 | | | | | Starting [facility] 04/07/19 at 1105, | | AM PDT | | | | | Until [facility] 04/07/19 at 1105 | | | | | | + +-------+ +--------+---+---+ +---+---+ | | | +---+---+ + +-------+ +--------+---+---+ | fentaNYL (SUBLIMAZE) injection | Given | 04/07/20 | 50 mcg | | | | intravenous, INTRAPROCEDURE PRN, | | 19 11:09 | | | | | Starting [facility] 04/07/19 at 1109, | | AM PDT | | | | | Until Jasmyne 04/07/19 at 1109 | | | | | | + +-------+ +--------+---+---+ +---+---+ | | | +---+---+ + +-------+ +--------+---+---+ | fentaNYL (SUBLIMAZE) injection | Given | 04/07/20 | 50 mcg | | | | intravenous, INTRAPROCEDURE PRN, | | 19 11:16 | | | | | Starting [facility] 04/07/19 at 1116, | | AM PDT | | | | | Until [facility] 04/07/19 at 1116 | | | | | | + +-------+ +--------+---+---+ +---+---+ | | | +---+---+ + +-------+ +--------+---+---+ | fentaNYL (SUBLIMAZE) injection | Given | 04/07/20 | 50 mcg | | | | intravenous, INTRAPROCEDURE PRN, | | 19 11:18 | | | | | Starting [facility] 04/07/19 at 1118, | | AM PDT | | | | | Until [facility] 04/07/19 at 1118 | | | | | | + +-------+ +--------+---+---+ +---+---+ | | | +---+---+ + +-------+ +-------+---+---+ | lidocaine viscous (XYLOCAINE | Given | 04/07/20 | 15 mL | | | | VISCOUS) 2 % mucosal solution | | 19 12:35 | | | | | Mouth/Throat, INTRAPROCEDURE PRN, | | PM PDT | | | | | Starting [facility] 04/07/19 at 1104, | | | | | | | Until [facility] 04/07/19 at 1235 | | | | [...]
--- OUTSIDE RECORDS SUMMARY | ~2019-06-25 | XMS | Encounter Summary ---
Demographics + + + | Address | [address] | | | [place] [address] | + + + | Home Phone [...] [place], [place] | | | | | [address] | | + + + + + | Ellie Vang | ECON | Unknown | | + + + + + Care Team Providers + +------+ + | Care Sales Special Agent Name | Role | Phone | + +------+ + | Fadi Goodrich DO | PCP | | + +------+ + Encounter Details +--------+------+ + + + | Date | Type | Department | Care Team | Description | +--------+------+ + + + | 10/12/ | Lab | Laboratory at [facility] | | | | 2019 | | [address] | | | | | | [place], [place] | | | | | | [address] | | | | | | [phone] | | | +--------+------+ + + + [...] [place] | | | | | | [address] | | | | | | [phone] | | | | | | | [...] [place] | | | | | | [address] | | | | | | [phone] | | | | | | | | +--------+ + + + + | 09/15/ | Office | Cardiology | Randell Franks, | | | 2019 | Visit | | [address] | | | | | | [place], [place] | | | | | | [address] | | | | | | [phone] | | | | | | | [...] + | [facility] | [address] | [place] [address] | | | LYDIA RANGEL | CLARENCE [...] INTFC | | | | determined by [employer] | | | | | | Laboratories. See | | | | | | Compliance Statement B: | | | | | | [employer]/CSPerformed | | | | | | by [email or web address] | | | | | | Natalia Martinez, [facility],[place] | | | | | | [address] | | | | | | [phone].[email or web address]. | | | | | | [employer] GroupIsmael MD, | | | | | [...] [facility] | [address] | [place], [place] | | | UNIV PTH - INTFC | | [address] | | + + + + + [...] | | | | | determined by [employer] | | | | | | Laboratories. See | | | | | | Compliance Statement B: | | | | | | [employer]/CSPerformed | | | | | | by [email or web address] | | | | | | [facility],[place] | | | | | | [address] | | | | | | [phone]. | | | | | | com, [...] [facility] | [address] | [place], [place] | | | UNIV PTH - INTFC | | [address] | | + + + + + [...] [facility] | | | (YEN NOAH) | [facility],[address] | | REG UNIV | | | SERUM | [facility] | | PTH - INTFC | | | | [address] | | | | | | [phone].[email or web address]. | | | | | | Ismael [...] B: | | | | | | [employer]/CS | | | | + + + + + + + + | Specimen | + + | Blood - Blood | | (substance) | + + + + + + + | Performing | Address | City/State/Zipcode | Phone Number | | Organization | | | | + + + + + | [facility] | [address] | [place], [place] | | | UNIV PTH - INTFC | | [address] | | + + + + + [...] [facility] | [address] | [place] [address] | | | SERVICES, CORE | PARK [...] [facility] | [address] | [place] [address] | | | SERVICES, CORE | CLARENCE [...] B: | | | | | | [employer]/CSPerformed | | | | | | by [email or web address] | | | | | | Natalia Martinez [facility],[place] | | | | | | [address] | | | | | | [phone]. | | | | | | com, [...] [facility] | [address] | [place], [place] | | | UNIV PTH - INTFC | | [address] | | + + + + + [...] [facility] | [address] | [place] [address] | | | SERVICES, LYDIA | CLARENCE [...] | | | | | determined by [employer] | | | | | | [employer]. See | | | | | | Compliance Statement B: | | | | | | [employer]/CSPerformed | | | | | | by [email or web address] | | | | | | [place], [place] | | | | | | [address] | | | | | | [phone].[email or web address]. | | | | | | comIsmael [...] [facility] | [address] | [place], [place] | | | UNIV PTH - INTFC | | [address] | | + + + + + [...] [facility] | [address] | [place] [address] | | | SERVICES, CORE | PARK [...] | + + + + + | [facility] | [address] [facility] | [place] [address] | | | SERVICES, SPECIAL | PARK [...] | + + + + + | [facility] | [address] | [place] [address] | | | SERVICES, CORE | CLARENCE [...] at | | | | | | [email or web address] | | | | | | med by [facility] | | | | | | [facility]ly [facility],[address] [place] [address] | | | | | | Juan [facility] [place] [address] | | | | | | [phone].[facility]. | | | | | | [facility] centerIsmael MD, | | | | [...] [facility] | [address] | [place], [place] | | | UNIV PTH - INTFC | | [address] | | + + + + + [...] + | [facility] | [address] | [place] [address] | | | SERVICES, CORE | [address] | | | + + + + + documented in this encounter Visit Diagnoses Not on filedocumented in this encounter"
--- OUTSIDE RECORDS SUMMARY | ~2019-06-25 | XMS | Encounter Summary ---
[...] [place], [place] | | | | | [address] | | + + + + + [...] | | 2014 | | Preventive at [facility] | MD [address] | | | | | [address] | Ave [place], [place] | | | | | Mailcode: [facility] | [address] | | | | | [facility] | [phone] | | | | | and [place]rick, | | | | | | Building [address] | | | | | | [place], [place] | | | | | | [address] | | | | | | [phone] | | | +--------+--------+ + + + [...] Rd | | | | | | [place], [place] | | | | | | [address] | | | | | | [phone] | | | | | | | | +--------+ + + + + | 08/19/ | Surgery | Surgery | Chilo, | OPEN VENTRAL HERNIA | | 2019 | | | MD [address] | REPAIR WITH | | | | | [address] | BIOLOGICAL MESH | | | | | [place], [place] | | | | | | [address] | | | | | | [phone] | | | | | | | | +--------+ + + + + | 09/15/ | Office | Cardiology | Randell Franks, | | | 2019 | Visit | | MD [address] | | | | | | [place], [place] | | | | | | [address] | | | | | | [phone] | | | | | | | | +--------+ + + + + documented as of this encounter Visit Diagnoses Not on filedocumented in this encounter"
--- OUTSIDE RECORDS SUMMARY | ~2019-06-25 | XMS | Encounter Summary ---
Demographics + + + | Address | [address] | | | [place] [address] | + + + | Home Phone [...] [place], [place] | | | | | [address] | | + + + + + | Ellie Vang | ECON | Unknown | | + + + + + Care Team Providers + +------+ + | Care Machine Heel Seat Fitter Name | Role | Phone | [...] | | | | | obstruction | [place], | Mailcode: | | | | | or gangrene | [place] | Center for | | | | | Abdominal | [address] | Health and | | | | | pain, | Phone: | Healing, | | | | | unspecified | | Building 2 | | | | | abdominal | Fax: | [place], [place] | | | | | location | [phone] | [address] | | | | | Procedures | | Phone: | | | | | CONSULT TO | | [phone] | | | | | SURGERY - | | Fax: | | | | | GENERAL | | [phone] | + +--------+ + + + + [...] | | [address] | Ave [place], [place] | | | | | Mailcode: [place] | [address] | | | | | for Health and | | | | | | [facility] | | | | | | [facility] [place] | | | | | | [address] | | | | | | | [...] [place] | | | | | | [address] | | | | | | [phone] | | | | | | | [...] [place] | | | | | | [address] | | | | | | [phone] | | | | | | | | +--------+ + + + + | 09/15/ | Office | Cardiology | Randell Franks, | | | 2019 | Visit | | [address] | | | | | | [place], [place] | | | | | | [address] | | | | | | [phone] | | | | | | | [...]
--- OUTSIDE RECORDS SUMMARY | ~2019-06-25 | XMS | Encounter Summary ---
Demographics + + + | Address | [address] | | | [place] [address] | + + + | Home Phone [...] [place], [place] | | | | | [address] | | + + + + + | Ellie Vang | ECON | Unknown | | + + + + + Care Team Providers + +------+ + | Care Stock Mixer Name | Role | Phone | + +------+ + | Fadi Goodrich DO | PCP | | + +------+ + Encounter Details +--------+ + + + + | Date | Type | Department | Care Team | Description | +--------+ + + + + | 11/04/ | Telephone | Pain Center at [facility] | Leslie Mistry, | | | 2017 | | Floor [address] | PhD [address] [facility] | | | | | [address] Mailcode: | [address] [place] | | | | | [address] [place], [place] | | | | | Health and Healing, | [address] | | | | | [facility] | [phone] | | | | | Floor [place], [place] | | | | | | [address] | | | | | | [phone] | | | +--------+ + + + [...] Rd | | | | | | [place], [place] | | | | | | [address] | | | | | | [phone] | | | | | | | | +--------+ + + + + | 08/19/ | Surgery | Surgery | Chilo, | OPEN VENTRAL HERNIA | | 2019 | | | MD Jorje [address] | REPAIR WITH | | | | | [address] | BIOLOGICAL MESH | | | | | [place], [place] | | | | | | [address] | | | | | | [phone] | | | | | | | | +--------+ + + + + | 09/15/ | Office | Cardiology | Randell Franks, | | | 2019 | Visit | | MD [address] | | | | | | Ave [place], [place] | | | | | | [address] | | | | | | [phone] | | | | | | | | +--------+ + + + + documented as of this encounter Visit Diagnoses Not on filedocumented in this encounter"
--- OUTSIDE RECORDS SUMMARY | ~2019-06-25 | XMS | Encounter Summary ---
Demographics + + + | Address | [address] | | | [place] [address] | + + + | Home Phone [...] [place], [place] | | | | | [address] | | + + + + + | Ellie Vang | ECON | Unknown | | + + + + + Care Team Providers + +------+ + | Care Supervisor Winter Name | Role | Phone | + [...] | | 2019 | | Center at [facility] [address] | | Review | | | | [address] | | | | | | Mailcode: [place] | | | | | | [facility] Health and | | | | | | [facility] 2 | | | | | | [place], [place] | | | | | | [address] | | | | | | [phone] | | | +--------+ + + + [...] Rd | | | | | | [place], [place] | | | | | | [address] | | | | | | [phone] | | | | | | | | +--------+ + + + + | 08/19/ | Surgery | Surgery | [place], | OPEN VENTRAL HERNIA | | 2019 | | | MD Jorje [address] | REPAIR WITH | | | | | [address] | BIOLOGICAL MESH | | | | | [place], [place] | | | | | | [address] | | | | | | [phone] | | | | | | | | +--------+ + + + + | 09/15/ | Office | Cardiology | Randell Franks, | | | 2019 | Visit | | [address] | | | | | | [place], [place] | | | | | | [address] | | | | | | [phone] | | | | | | | | +--------+ + + + + documented as of this encounter Visit Diagnoses Not on filedocumented in this encounter"
--- OUTSIDE RECORDS SUMMARY | ~2019-06-25 | XMS | Encounter Summary ---
Demographics + + + | Address | [address] | | | [place] [address] | + + + | Home Phone [...] + | Katalina Padilla | ECON | [address] | | | | | [place], [place] | | | | | [address] | | + + + + + | Ellie Vang | ECON | Unknown | | + + + + + Care Team Providers + +------+ + | Care Sheet Pile Hammer Operator Name | Role | [...] | | bypass | [place], [place] | [facility] | | | | | Nausea and | [address] | for Health | | | | | vomiting, | Phone: | and Healing, | | | | | intractabili | | Building 2 | | | | | ty of | Fax: | [place], [place] | | | | | vomiting not | [phone] | [address] | | | | | specified, | | Phone: | | | | | unspecified | | [phone] | | | | | vomiting | | Fax: | | | | | type | | [phone] | | | | | Decreased | [...] | | | | | | [place] | | | | | | | UPPER GI | | | | | | | ENDOSCOPY,BI | | | | | | | OPSY MI UP | | | | | | [...] [facility] [address] | MD [address] | | | | | [address] | [place], [place] | | | | | Mailcode: [place] | [address] | | | | | for Health and | | | | | | [address] [address] | | | | | | [place], [place] | | | | | | [address] | | | | | | [phone] | | | +--------+ + + + [...] | | | | | | [place], [place] | | | | | | [address] | | | | | | [phone] | | | | | | | | +--------+ + + + + | 08/19/ | Surgery | Surgery | Chilo | OPEN VENTRAL HERNIA | 2019 | | | Jorje, MD [address] | REPAIR WITH | | | | | [address] | BIOLOGICAL MESH | | | | | [place], [place] | | | | | | [address] | | | | | | [phone] | | | | | | | | +--------+ + + + + | 09/15/ | Office | Cardiology | Randell Franks, | | | 2020 | Visit | | [address] | | | | | | [place], [place] | | | | | | [address] | | | | | | [phone] | | | | | | | [...]
--- OUTSIDE RECORDS SUMMARY | ~2019-06-25 | XMS | Encounter Summary ---
Demographics + + + | Address | [address] | | | [place] [address] | + + + | Home Phone [...] [place], [place] | | | | | [address] | | + + + + + | Ellie Vang | ECON | Unknown | | + + + + + Care Team Providers + +------+ + | Care Manager Transportation Name | Role | Phone | + [...] [address] | | | | | [facility] | [facility] | | | | | [address] | [place], [place] | | | | | Mail Code: OC8PM | [address] | | | | | [facility] | [phone] | | | | | and Healing, | | | | | | Building [address] | | | | | | [place], [place] | | | | | | [address] | | | | | | [phone] | | | +--------+ + + + [...] | | | | | | [place] [address] [place] | | | | | | [address] | | | | | | [phone] | | | | | | | | +--------+ + + + + | 08/19/ | Surgery | Surgery | Chilo | OPEN VENTRAL HERNIA | | 2019 | | | MD [address] | REPAIR WITH | | | | | [address] | BIOLOGICAL MESH | | | | | [place] | | | | | | [address] | | | | | | [phone] | | | | | | | | +--------+ + + + + | 09/15/ | Office | Cardiology | Randell Franks, | | | 2020 | Visit | | [address] | | | | | | [place], [place] | | | | | | [address] | | | | | | [phone] | | | | | | | | +--------+ + + + + documented as of this encounter Visit Diagnoses Not on filedocumented in this encounter"
--- OUTSIDE RECORDS SUMMARY | ~2019-06-25 | XMS | Encounter Summary ---
Demographics + + + | Address | [address] | | | [place] [address] | + + + | Home Phone [...] [place], [place] | | | | | [address] | | + + + + + | Ellie Vang | ECON | Unknown | | + + + + + Care Team Providers + +------+ + | Care Glove Printer Name | Role | Phone | [...] | | | | | (HCC) | [place], [place] | Mailcode: | | | | | Procedures | [address] | [address] [facility] | | | | | CT ABDOMEN & | Phone: | Hospital | | | | | PELVIS [address] | | [place], [place] | | | | | IV CONTRAST | Fax: | [address] | | | | | [place] | [phone] | Phone: | | | | | ABDOMEN&PELV | | [phone] | | | | | IS | | Fax: | | | | | W/CONTRAST | | [phone] | | | | | See chart [...] | | | | | | [address] | | | | | | | [address] | | | | | | | Mailcode: | | | | | | | [facility] | | | | | | | Health and | | | | | | | Healing, | | | | | | | Building [address] | | | | | | | [place], [place] | | | | | | | [address] | | | | | | | Phone: | | | | | | | [phone] | | | | | | | Fax: | | | | | | | [phone] | +--------+--------+ + + + + Encounter [...] | | [address] | Ave [place], [place] | obesity (HCC) | | | | Mailcode: [place] | [address] | | | | | for Health and | [phone] | | | | | [facility] 2 | | | | | | [place], [place] | | | | | | [address] | | | | | | [phone] | | | +--------+---------+ + + + [...] up in th e air, Use a mathematics academic chair.... And get it really dry. Then use corn starch ..... Then use medicated powder... Please go to the 3rd floor for the study... [place] [phone] documented in this encounter Progress Notes Shereen Pinto ACNP - 10/02/2014 11:14 AM PDTFormatting of this note might be different fro m the original. BARIATRIC INITIAL VISIT Provider: Shereen Pinto DNP, ACNP, [employer]PER [employer] Referring Provider: Dr. Goodrich Reason for Requested [...] with the surgeon. Shereen Pinto DNP, ACNP, GREENSKEEPER HEAD Nurse Practitioner for Bariatric Surgery [facility] [facility] [place] | [address] | [place], [place] | [address] | Potential Contraindications to Bariatric Surgery Age [...] other providers does not guarantee that the [facility] Bariatric Surger y program will deem [...] Rd | | | | | | [place], [place] | | | | | | [address] | | | | | | [phone] | | | | | | | | +--------+ + + + + | 08/19/ | Surgery | Surgery | Ch[place], | OPEN VENTRAL HERNIA | | 2019 | | | MD Demond Recinos [address] | REPAIR WITH | | | | | [address] | BIOLOGICAL MESH | | | | | [facility] [place] | | | | | | [address] | | | | | | [phone] | | | | | | | | +--------+ + + + + | 09/15/ | Office | Cardiology | Randell Franks, | | | 2020 | Visit | | [address] | | | | | | [place] [facility] [place] | | | | | | [address] | | | | | | [phone] | | | | | | | [...]
--- OUTSIDE RECORDS SUMMARY | ~2019-06-25 | XMS | Encounter Summary ---
Demographics + + + | Address | [address] | | | [place] [address] | + + + | Home Phone [...] [place], [place] | | | | | [address] | | + + + + + | Ellie Vang | ECON | Unknown | | + + + + + Care Team Providers + +------+ + | Care Edge Burnisher Uppers Name | Role | Phone | + +------+ + | Fadi Goodrich DO | PCP | | + +------+ + Encounter Details +--------+ + + + + | Date | Type | Department | Care Team | Description | +--------+ + + + + | 10/27/ | Telephone | Pain Center at [facility] | Leslie Mistry, | | | 2017 | | Floor [address] | PhD [address] [facility] | | | | | [address] Mailcode: | Ryan Grace | | | | | [address] [place], [place] | | | | | Health and Healing, | [address] | | | | | [facility] | [phone] | | | | | Floor [place], [place] | | | | | | [address] | | | | | | [phone] | | | +--------+ + + + [...] Rd | | | | | | [place], [place] | | | | | | [address] | | | | | | [phone] | | | | | | | | +--------+ + + + + | 08/19/ | Surgery | Surgery | Chilo, | OPEN VENTRAL HERNIA | | 2019 | | | MD Jorje [address] | REPAIR WITH | | | | | [address] | BIOLOGICAL MESH | | | | | [place], [place] | | | | | | [address] | | | | | | [phone] | | | | | | | | +--------+ + + + + | 09/15/ | Office | Cardiology | Randell Franks, | | | 2019 | Visit | | MD [address] | | | | | | Ave [place], [place] | | | | | | [address] | | | | | | [phone] | | | | | | | | +--------+ + + + + documented as of this encounter Visit Diagnoses Not on filedocumented in this encounter"
--- OUTSIDE RECORDS SUMMARY | ~2019-06-25 | XMS | Encounter Summary ---
Demographics + + + | Address | [address] | | | [place] [address] | + + + | Home Phone [...] [place], [place] | | | | | [address] | | + + + + + | lElie Vang | ECON | Unknown | | + + + + + Care Team Providers + +------+ + | Care Piling Setter Name | Role | Phone | + +------+ + | Fadi Goodrich DO | PCP | | + +------+ + Encounter Details +--------+------+ + + + | Date | Type | Department | Care Team | Description | +--------+------+ + + + | 06/16/ | Lab | Laboratory at [facility] | | Morbid obesity with | | 2012 | | [address] | | BMI of 70 and over, | | | | [place], [place] | | adult (HCC); Vitamin | | | | [address] | | D deficiency | | | | [phone] | | disease; | | | | [...] Rd | | | | | | [place], [place] | | | | | | [address] | | | | | | [phone] | | | | | | | | +--------+ + + + + | 08/19/ | Surgery | Surgery | Chilo, | OPEN VENTRAL HERNIA | | 2019 | | | MD Jorje [address] | REPAIR WITH | | | | | [address] | BIOLOGICAL MESH | | | | | [place], [place] | | | | | | [address] | | | | | | [phone] | | | | | | | | +--------+ + + + + | 09/15/ | Office | Cardiology | Randell Franks, | | | 2019 | Visit | | [address] | | | | | | Ave [place], [place] | | | | | | [address] | | | | | | [phone] | | | | | | | [...] | | | PST | over, adult ([facility]) | results section. | | | | | Vitamin D deficiency | | | | | | disease | | | | | | Intertriginous | | | | | | candidiasis | | | | | | 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| | ([facility]) HTN | | | | [...] | | | | | | obesity ([facility]) PCOS | | | | | | [...] | | | | | | by [facility],[address] | | | | [address], [place] | | | | | | [address] | | | | | | [phone] | | | | | | Mt [...] at | | | | | | [employer] | | | | | | developed and | | | | | | characteristics | | | | | | determined by | | | | | | [facility]. See | | | | | | Compliance Statement B: | | | | | | [employer] | | | | + + + + + + + + | Specimen | + + | Blood - Blood | + + + + + + + | Performing | Address | City/State/Zipcode | Phone Number | | Organization | | | | + + + + + | [facility] | [address] | [place], [place] | | | [facility] | | [address] | | + + + + + [...]
--- OUTSIDE RECORDS SUMMARY | ~2019-06-25 | XMS | Encounter Summary ---
Demographics + + + | Address | [address] | | | [place] [address] | + + + | Home Phone [...] [place], [place] | | | | | [address] | | + + + + + | Ellie Vang | ECON | Unknown | | + + + + + Care Team Providers + +------+ + | Care Case Liner Name | Role | Phone | [...] Rd | | | | | | [place], [place] | | | | | | [address] | | | | | | [phone] | | | | | | | | +--------+ + + + + | 08/19/ | Surgery | Surgery | Chilo, | OPEN VENTRAL HERNIA | | 2019 | | | MD Jorje [address] | REPAIR WITH | | | | | [address] | BIOLOGICAL MESH | | | | | [place], [place] | | | | | | [address] | | | | | | [phone] | | | | | | | | +--------+ + + + + | 09/15/ | Office | Cardiology | Randell Franks, | | | 2019 | Visit | | [address] | | | | | | [address] [place], [place] | | | | | | [address] | | | | | | [phone] | | | | | | | | +--------+ + + + + documented as of this encounter Visit Diagnoses Not on filedocumented in this encounter"
--- OUTSIDE RECORDS SUMMARY | ~2019-06-25 | XMS | Encounter Summary ---
Demographics + + + | Address | [address] | | | [place] [address] | + + + | Home Phone [...] [place], [place] | | | | | [address] | | + + + + + | Ellie Vang | ECON | Unknown | | + + + + + Care Team Providers + +------+ + | Care Litigation Support Analyst Name | Role | Phone | [...] | | 2 diabetes | JEAN, | [place], [place] | | | | | mellitus | [place] [address] | [address] | | | | | without | Phone: | Phone: | | | | | complication | [phone] | [phone] | | | | | (HCC) | Fax: | Fax: | | | | | Procedures | [phone] | [phone] | | | | | MO EST [...] | 2018 | Visit | Preventive at [facility] | [address] | mellitus without | | | | [address] | Ave [facility] [place] | complication, with | | | | Mailcode: [facility] | [address] | long-term current | | | | [facility] | [phone] | use of insulin (HCC) | | | | and Healing, | | (Primary Dx); | | | | [address] | | Morbid obesity with | | | | [place], [place] | | BMI of 70 and over, | | | | [address] | | adult (HCC) | | | | [phone] | | | +--------+---------+ + + + [...] 04/14/2013 Priority: 3 Hypoventilation associated with obesity ([facility]) 06/16/2013 Priority: 4 AMARA (obstructive sleep apnea) 04/14/2013 Priority: 4 Overview Note: Cannot tolerate CPAP Severe Morbid obesity ([facility]), BMI 88 11/12/2012 Priority: 4 Overview Note: Lifetime max: 495 lbs Phentermine started Type 2 diabetes mellitus ([facility]) 04/14/2013 Priority: 5 Iron deficiency anemia due to chronic blood loss 11/11/2015 Priority: 6 Overview Note: Ferritin 18 on 10/2015 Hypoalbuminemia (no proteinuria, need to rule out synthetic, nutrition, loss) 6 Priority: 6 Hypothyroidism 08/28/2014 Priority: 8 Morbid obesity with BMI of 70 and over, adult ([facility]) 02/02/2017 Chronic diastolic heart failure (HCC) 02/02/2017 Immobility 02/02/2017 Severe muscle deconditioning 02/02/2017 Personal history of DVT (deep vein thrombosis) 02/02/2017 History of pulmonary embolism 02/02/2017 AMARA treated with BiPAP 02/02/2017 Benign essential HTN 02/02/2017 Diabetes mellitus type 2 without retinopathy ([facility]) 02/02/2017 Hyperlipidemia 02/02/2017 Ventral [...] exertion) 11/06/2015 Diabetes mellitus with insulin therapy ([facility]) 12/27/2014 Abdominal pain 02/07/2014 [...] 1 tablet by mouth once daily CALCIUM [id number]-GENIS ORAL Take 2 tablets by mouth two [...] jeart failure is manag ed by her payroll clerk and she was seen by the bariatric [...] is currently being managed well by her Area Director Of Home Health Sales with diuretics and main tenance of her [...] management of her heart failure by her Area Director Of Home Health Sales 3) Check A1c, lipids 4) Await bariatric [...] | | | | | | [place], [place] | | | | | | [address] | | | | | | [phone] | | | | | | | | +--------+ + + + + | 08/19/ | Surgery | Surgery | Chilo | OPEN VENTRAL HERNIA | | 2019 | | | MD [address] | REPAIR WITH | | | | | [address] | BIOLOGICAL MESH | | | | | [place], [place] | | | | | | [address] | | | | | | [phone] | | | | | | | | +--------+ + + + + | 09/15/ | Office | Cardiology | Randell Franks, | | | 2019 | Visit | | [address] | | | | | | [place], [place] | | | | | | [address] | | | | | | [phone] | | | | | | | [...] + + | [facility] Acquia | [address] | [place], [place] | | | SERVICES, LIPID | [address] | [address] | | + + + + + [...] | [facility] | [address] [facility] | [place] [address] | | | SERVICES, SPECIAL | [address] | | | | IMM + COAG | | | | + + + + + documented in this encounter Visit Diagnoses + + | Diagnosis | + + | Type 2 diabetes mellitus without complication, with long-term current use of insulin | | ([facility]) - Primary | + + | Morbid obesity with BMI of 70 and over, adult ([facility]) | + + documented in this encounter
--- OUTSIDE RECORDS SUMMARY | ~2019-06-25 | XMS | Encounter Summary ---
Demographics + + + | Address | [address] | | | [place] [address] | + + + | Home Phone [...] [place], [place] | | | | | [address] | | + + + + + | Ellie Vang | ECON | Unknown | | + + + + + Care Team Providers + +------+ + | Care General Utility Machine Operator Name | Role | Phone [...] | | 2012 | | Center at [facility] [address] | ACNP [address] | | | | | [address] | Ave [place], [place] | | | | | Mailcode: [place] | [address] | | | | | for Health and | | | | | | [facility] | | | | | | [facility] [place] | | | | | | [address] | | | | | | | [...] Rd | | | | | | [place], [place] | | | | | | [address] | | | | | | [phone] | | | | | | | | +--------+ + + + + | 08/19/ | Surgery | Surgery | Chilo, | OPEN VENTRAL HERNIA | | 2019 | | | MD Jorje [address] | REPAIR WITH | | | | | [address] | BIOLOGICAL MESH | | | | | [place], [place] | | | | | | [address] | | | | | | [phone] | | | | | | | | +--------+ + + + + | 09/15/ | Office | Cardiology | Randell Franks, | | | 2019 | Visit | | [address] | | | | | | [place] [facility] [place] | | | | | | [address] | | | | | | [phone] | | | | | | | | +--------+ + + + + documented as of this encounter Visit Diagnoses Not on filedocumented in this encounter"
--- OUTSIDE RECORDS SUMMARY | ~2019-06-25 | XMS | Encounter Summary ---
Demographics + + + | Address | [address] | | | [place] [address] | + + + | Home Phone [...] [place], [place] | | | | | [address] | | + + + + + | Ellie Vang | ECON | Unknown | | + + + + + Care Team Providers + +------+ + | Care Chemical Instrumentation Officer Name | Role | Phone | + +------+ + | Fadi Goodrich DO | PCP | | + +------+ + Encounter Details +--------+------+ + + + | Date | Type | Department | Care Team | Description | +--------+------+ + + + | 08/28/ | Lab | Laboratory at [facility] | | Type 2 diabetes | | 2015 | | [address] | | mellitus (HCC) | | | | [place], [place] | | | | | | [address] | | | | | | [phone] | | | +--------+------+ + + + [...] Rd | | | | | | [place], [place] | | | | | | [address] | | | | | | [phone] | | | | | | | | +--------+ + + + + | 08/19/ | Surgery | Surgery | Chilo, | OPEN VENTRAL HERNIA | | 2019 | | | MD Jorje [address] | REPAIR WITH | | | | | [address] | BIOLOGICAL MESH | | | | | [place], [place] | | | | | | [address] | | | | | | [phone] | | | | | | | | +--------+ + + + + | 09/15/ | Office | Cardiology | Randell Franks, | | | 2019 | Visit | | [address] | | | | | | [place], [place] | | | | | | [address] | | | | | | [phone] | | | | | | | [...] | [facility] | [address] [facility] | [place] [address] | | | [address]IA RANGEL | CLARENCE [...] [facility] | [address] | [place] [address] | | | SERVICES, SPECIAL | [address] [...]
--- OUTSIDE RECORDS SUMMARY | ~2019-06-25 | XMS | Encounter Summary ---
Demographics + + + | Address | [address] | | | [place] [address] | + + + | Home Phone [...] [place], [place] | | | | | [address] | | + + + + + | Ellie Vang | ECON | Unknown | | + + + + + Care Team Providers + +------+ + | Care Civil Design Specialist Name | Role | Phone [...] | | 2016 | | Preventive at [facility] | MD [address] | | | | | [address] | Ave [place], [place] | | | | | Mailcode: [facility] | [address] | | | | | [facility] | [phone] | | | | | and [facility], | | | | | | Building [address] | | | | | | [facility] [place] | | | | | | [address] | | | | | | [phone] | | | +--------+ + + + [...] [place] | | | | | | [address] | | | | | | [phone] | | | | | | | | +--------+ + + + + | 08/19/ | Surgery | Surgery | Chilo, | OPEN VENTRAL HERNIA | | 2019 | | | MD [address] | REPAIR WITH | | | | | [address] | BIOLOGICAL MESH | | | | | [place], [place] | | | | | | [address] | | | | | | [phone] | | | | | | | | +--------+ + + + + | 09/15/ | Office | Cardiology | Randell Franks, | | | 2020 | Visit | | [address] | | | | | | [place], [place] | | | | | | [address] | | | | | | [phone] | | | | | | | | +--------+ + + + + documented as of this encounter Visit Diagnoses Not on filedocumented in this encounter"
--- OUTSIDE RECORDS SUMMARY | ~2019-06-25 | XMS | Encounter Summary ---
Demographics + + + | Address | [address] | | | [place] [address] | + + + | Home Phone [...] [place], [place] | | | | | [address] | | + + + + + | Ellie Vang | ECON | Unknown | | + + + + + Care Team Providers + +------+ + | Care Project Leader Name | Role | Phone [...] Floor [address] | PhD [address] [facility] | | | | | [address] Mailcode: | [address] | | | | | [address] [place], [place] | | | | | Health and Healing, | [address] | | | | | [facility] | [phone] | | | | | Floor [place], [place] | | | | | | [address] | | | | | | [phone] | | | +--------+ + + + [...] Rd | | | | | | [place], [place] | | | | | | [address] | | | | | | [phone] | | | | | | | | +--------+ + + + + | 08/19/ | Surgery | Surgery | Chilo, | OPEN VENTRAL HERNIA | | 2019 | | | MD Jorje [address] | REPAIR WITH | | | | | [address] | BIOLOGICAL MESH | | | | | [place], [place] | | | | | | [address] | | | | | | [phone] | | | | | | | | +--------+ + + + + | 09/15/ | Office | Cardiology | Randell Franks, | | | 2019 | Visit | | [address] | | | | | | [address] [place], [place] | | | | | | [address] | | | | | | [phone] | | | | | | | | +--------+ + + + + documented as of this encounter Visit Diagnoses Not on filedocumented in this encounter"
--- OUTSIDE RECORDS SUMMARY | ~2019-06-25 | XMS | Encounter Summary ---
[...] [place], [place] | | | | | [address] | | + + + + + | Ellie Vang | ECON | Unknown | | + + + + + Care Team Providers + +------+ + | Care Casino Floorperson Name | Role | Phone | [...] the | | | | | | [facility] [address] [facility] | | | | | | [facility] | | | | | | [place], [place] | | | | | | [address] | | | +--------+ + + + [...] Rd | | | | | | [place], [place] | | | | | | [address] | | | | | | [phone] | | | | | | | | +--------+ + + + + | 08/19/ | Surgery | Surgery | Chilo | OPEN VENTRAL HERNIA | | 2019 | | | MD [address] | REPAIR WITH | | | | | [address] | BIOLOGICAL MESH | | | | | [place], [place] | | | | | | [address] | | | | | | [phone] | | | | | | | | +--------+ + + + + | 09/15/ | Office | Cardiology | Randell Franks, | | | 2019 | Visit | | [address] | | | | | | [place] | | | | | | [address] | | | | | | [phone] | | | | | | | | +--------+ + + + + documented as of this encounter Visit Diagnoses Not on filedocumented in this encounter"
--- OUTSIDE RECORDS SUMMARY | ~2019-06-25 | XMS | Encounter Summary ---
Demographics + + + | Address | [address] | | | [place] [address] | + + + | Home Phone [...] [place], [place] | | | | | [address] | | + + + + + | Ellie Vang | ECON | Unknown | | + + + + + Care Team Providers + +------+ + | Care Coal Dumping Equipment Operator Name | Role | Phone [...] Rd | | | | | | [place], [place] | | | | | | [address] | | | | | | [phone] | | | | | | | | +--------+ + + + + | 08/19/ | Surgery | Surgery | Chilo, | OPEN VENTRAL HERNIA | | 2019 | | | MD Jorje [address] | REPAIR WITH | | | | | [address] | BIOLOGICAL MESH | | | | | [place], [place] | | | | | | [address] | | | | | | [phone] | | | | | | | | +--------+ + + + + | 09/15/ | Office | Cardiology | Randell Franks, | | | 2019 | Visit | | [address] | | | | | | [place], [place] | | | | | | [address] | | | | | | [phone] | | | | | | | | +--------+ + + + + documented as of this encounter Visit Diagnoses Not on filedocumented in this encounter"
--- OUTSIDE RECORDS SUMMARY | ~2019-06-25 | XMS | Encounter Summary ---
Demographics + + + | Address | [address] | | | [place] [address] | + + + | Home Phone [...] | [facility] | | | and Jeff[place] | + + + | Organization | [facility] | | | and Jeffana [...] Team Providers + +------+ + | Care Membership Solicitor Name | Role | Phone | [...] | specified | MD [address] | COASTAL AND ESTUARY SPECIALIST [address] | | | | | diseases of | [address] | [place], [place] | | | | | liver | [place], | [address] [place] | | | | | Procedures | [place] | [place], [place] | | | | | office visit | [address] | [address] Phone: | | | | | | Phone: | [phone] | | | | | | [phone] | Fax: | | | | | | Fax: | [phone] | | | | | | [phone] | | +--------+--------+ + + + + [...] | [address] [place] | [place], [place] [address] | Dx); History of | | | | [address] [place], [place] | [place] | Frandy-en-Y gastric | | | | [address] | [address] | bypass; Itching; | | | | [phone] | | Diarrhea, | | | | [...] en Y gastric bypass done 03/03/2018 at [facility]. She reports that approximately 3 months ago, [...] well. She is scheduled to see her [facility] surgeons within the next 2 weeks. She [...] right ventricular diastolic dysfunction (HCC) 10/26/2015 Overview: [facility] Last Assessment & Plan: Patient with morbid [...] o besity Pickwickian syndrome Recent admission to [facility] for 100lb weight gain- DC on diuresis [...] with morbid obesity, she is enrolled in [facility] bariatric program. She has lost [...] Plan: TSH WNL 10/2015. She is on perth amboy thyroid as OP. -TSH WNL -continu e supplementation here Hypoventilation associated with obesity (HCC) 06/16/2013 Last Assessment & Plan: [facility] Bariatric Program, has lost 50lbs. STEFANO (iron deficiency anemia) 02/03/2019 Overview: Presumed due to menses. Venofer 200 qd x 30 October 2015 [facility] Last Assessment & P sharon: Hgb appears [...] She is to follow-up with surgeons at [facility] as planned. Patient is to call with [...]
--- OUTSIDE RECORDS SUMMARY | ~2019-06-25 | XMS | Encounter Summary ---
Demographics + + + | Address | [address] | | | [place] [address] | + + + | Home Phone [...] [place], [place] | | | | | [address] | | + + + + + | Ellie Vang | ECON | Unknown | | + + + + + Care Team Providers + +------+ + | Care Barber Name | Role | Phone | + +------+ + | Kenyatta Cardenas MD | PCP | | + +------+ + Encounter Details +--------+ + + + + | Date | Type | Department | Care Team | Description | +--------+ + + + + | 05/03/ | Inside | [facility] at [facility] | Ion Pandey, | | | 2018 | Referral | [facility] [address] | MD [address] | | | | Order | [address] Mailcode: | [place], [place] | | | | | [address] [place] [address] for | [address] | | | | | Health and Healing, | [phone] | | | | | Building [address] | | | | | | [place], [place] | | | | | | [address] | | | | | | [phone] | | | +--------+ + + + [...] Rd | | | | | | [place], [place] | | | | | | [address] | | | | | | [phone] | | | | | | | | +--------+ + + + + | 08/19/ | Surgery | Surgery | Chilo, | OPEN VENTRAL HERNIA | | 2019 | | | MD [address] | REPAIR WITH | | | | | [address] | BIOLOGICAL MESH | | | | | [place], [place] | | | | | | [address] | | | | | | [phone] | | | | | | | | +--------+ + + + + | 09/15/ | Office | Cardiology | Randell Franks, | | | 2020 | Visit | | [address] | | | | | | [place], [place] | | | | | | [address] | | | | | | [phone] | | | | | | | [...]
--- OUTSIDE RECORDS SUMMARY | ~2019-06-25 | XMS | Encounter Summary ---
Demographics + + + | Address | [address] | | | [place] [address] | + + + | Home Phone [...] [place], [place] | | | | | [address] | | + + + + + | Ellie Vang | ECON | Unknown | | + + + + + Care Team Providers + +------+ + | [employer] Freight Forwarder Name | Role | Phone | + [...] PRINCE Herminio | | | | | [place], [place] | [address] | | | [birth year]/ | | [address] | [place], [place] | | | 2014 | | [phone] | [address] | | | | | | [phone] | | | | | | | [...] port site who was transferre d to [facility] for concern of an incarcerated [...] mouth once daily. , Historical Med CALCIUM [id number]-GENIS ORAL Take 1 tablet by mouth two [...] 10:40 AM Randell Franks Cardiology Preventive at [facility] [phone] Cardiology 04/09/2015 1:00 PM Egs Ppv Tra Trauma Emergency General Surgery at [facility] [phone] [facility] Outstanding labs/studies: None Discharging Physician: GABO LANGSTON MD Attending Physician: Dr. Cantu PCP: Fadi Goodrich DO Signed: GABO LANGSTON MD Pager #[phone] Surgical Stabilizing Machine Operator [facility] Associated attestation - Tye Carrillo DO - 03/12/2015 9:12 AM PDTAttending: I discussed this patient with the resident and agree with the assessment and plan as outlin ed in this note and participated in the planning of care. Tye Carrillo DO, MBA, FACS Division of Trauma, Critical Care & Acute Care Surgery [facility] [phone] documented in this encounter Medications at Time of Discharge + + + +---------+--------+ + | Medication | Sig | Dispensed | Refills | Start | End Date | | | | | | Date | | + + + +---------+--------+ + | CALCIUM | Take 2 tablets by | | 0 | | | | [id number]-[id number]-GEN | mouth two times | | | [...] differ ent from the original. [facility] DEPARTMENT OF SURGERY EMERGENCY GENERAL SURGERY Division [...] obesity with known ventral hernias transferred to [facility] for surgical managem ent of ventral hernia, now s/p repair. Post surgical pain: -patient ready for d/c, discussed f/u. Patient lives far away and has other appointments at [facility]. Will attempt to coordinate appointments. Discharge Plan: D/c today GABO LANGSTON MD Pager #[phone] Surgical Stabilizing Machine Operator [facility] Nataliia Mendez Salomón rose R - 03/02/2015 1:[address] [facility] DEPARTMENT OF SURGERY EMERGENCY GENERAL SURGERY Division of Trauma and Critical Care Attending Physician: Shahid Cantu MD Progress Note Note Date: 03/02/2015 Admission Date: 2015 DYLAN ROMERO, Hospital Day #2 40 F PMH morbid obesity (BMI 71 today), DM2, depression, GERD, h/o stroke at age 18, and kn own ventral hernias transferred to [facility] for surgical treatment of suspected [...] obesity with known ventral hernias transferred to [facility] for surgical managem ent of [...] will be robel ing her home to [place], [place]. CALVIN ROMERO MD PGY-1 Anesthesiology Pager: [phone] [facility] [address] [place] [address] Karthik Oneill MD - 03/02/2015 8:26 AM [id number] Calvin William Md - 03/01/2015 5:34 PM PDT Brief Post Operative Note: 40 F PMH morbid obesity (BMI 71 today), DM2, depression, GERD, h/o stroke at age 18, and kn own ventral hernias transferred to [facility] for surgical treatment of incarcerated [...] control CALVIN ROMERO MD PGY-1 Anesthesiology Pager: [phone] signed by Calvin Romero Md at 03/01/2015 [...] Rd | | | | | | [place], [place] | | | | | | [address] | | | | | | [phone] | | | | | | | | +--------+ + + + + | 08/19/ | Surgery | Surgery | Chilo, | OPEN VENTRAL HERNIA | | 2019 | | | MD Demond [address] | REPAIR WITH | | | | | [address] | BIOLOGICAL MESH | | | | | [place], [place] | | | | | | [address] | | | | | | [phone] | | | | | | | | +--------+ + + + + | 09/15/ | Office | Cardiology | Randell Franks, | | | 2019 | Visit | | MD Deion [address] | | | | | | [place], [place] | | | | | | [address] | | | | | | [phone] | | | | | | | [...] | | Attending Surgeon: Shahid Cantu MD Mechanical Manufacturing Technician(s): Howie Angeles MD, R5 | | Karthik [...] 03/02/2015 08:25:39DT: 03/02/2015 09:15:57Job #: | | [id number] | | | |Dr. Chris Cantu was present and scrubbed for the entirety of the case. | | | | | | | |Karthik Gonzalez MD | | | |Pursuant to federal Medicare and Medicaid regulations I was present for the entire procedur e. | | | | | | | |Shahid Cantu MD | |Route Salesperson | |Trauma, Critical Care & Acute Care Surgery | | | | | | | |Shahid Cantu MD | |TBK/MODL | | | | | | /[phone] | + ---+ CAPILLARY BLOOD GLUCOSE (NO [...] YAKOVAM | [address] | [place], [place] | | | JUSTINE [facility] [place] | [facility] | [address] | | | TESTS | | | [...] (H) | 60 - 99 mg/dL | [facility] - | | | GLUCOSE, [...] AMES | [address] | [place], [place] | | | [place] POINT OF CARE | [address] | [address] | | | TESTS | | | [...] + + | Performing | Address | City/State[facility] | Phone Number | | Organization | | | | + + + + + | [facility] | [address] | [place], [place] | | | [address] [address] [facility] [place] | [facility] | [address] | | | TESTS | | | [...] YAKOVAM | [address] | [place], [place] | | | [facility] [place] | [facility] | [address] | | | TESTS | | | [...] (H) | 60 - 99 mg/dL | [facility] - | | | GLUCOSE, [...] AMES | [address] | [place], [place] | | | [facility] [facility]ARE | [address] | [address] | | | TESTS | | | [...] KWAKU | [address] | [place], [place] | | | ABRAHAN DAWN | [facility] | [address] | | | TESTS | | | [...] [facility] | [address] | [place] [address] | | | SERVICES, CORE | CLARENCE [...] | | | LABORATORY | | | LEBANESE | | | SERVICES, | | | [...] | [facility] | [address] | [place] [address] | | | SERVICES, CORE | CLARENCE [...] (H) | 60 - 99 mg/dL | [facility] - | | | GLUCOSE, [...] AMES | [address] | [place], [place] | | | JUST[facility]WN OF CARE | [address] | [address] | | | TESTS | | | [...] MARQUAM | [address] | [place], [place] | | | [facility] CARE | [address] | [address] | | | TESTS | | | [...] MARQUAM | [address] | [place], [place] | | | [facility] CARE | [address] | [address] | | | TESTS | | | [...] (H) | 60 - 99 mg/dL | [facility] - | | | GLUCOSE, [...] AMES | [address] | [place], [place] | | | [facility] CARE | [address] | [address] | | | TESTS | | | [...] MARQUAM | [address] | [place], [place] | | | [facility] CARE | [address] | [address] | | | TESTS | | | [...] + | [facility] | [address] [facility] | [place] [address] | | | SERVICES, CORE | CLARENCE [...] MARQUAM | [address] | [place], [place] | | | JUSTINE [facility]WN OF JAKY | [address] | [address] | | | TESTS | | | [...] AM PDT | | | | | Jsamyne 03/01/15 at 1623, Until Fri | | [...] 8:32 | | | | | on [facility] 03/01/15 at 0900, Until | | AM [...] injection 1 dose, | | | Starting [facility] 03/01/15 at 1215, | | | Until [facility] 03/01/15 at 1216 | | + +---+ | | | + +---+ + +-------+ +-------+---+---+ | FLUoxetine (PROZAC) capsule 40 | Given | 03/03/20 | 40 mg | | | | mg 40 mg, oral, DAILY, First | | 15 8:32 | | | | | dose on [facility] 03/01/15 at 0900, Until | | AM [...] PDT | | | | | Starting [facility] 03/01/15 at 1056, | | | | | | | Until [facility] 03/01/15 at 1436, | | | | [...] mL/hr | mL/hr | | | Starting [facility] 03/01/15 at 0045, | | AM PDT [...] | First dose on [facility] 03/01/15 at 0900, | | AM PDT [...] | | | dose on [facility] 03/01/15 at 0900, Until | | AM [...] | | | dose on [facility] 03/01/15 at 0900, Until | | AM [...]
--- OUTSIDE RECORDS SUMMARY | ~2019-06-25 | XMS | Encounter Summary ---
Demographics + + + | Address | [address] | | | [place] [address] | + + + | Home Phone [...] [place], [place] | | | | | [address] | | + + + + + | Ellie Vang | ECON | Unknown | | + + + + + Care Team Providers + +------+ + | Care Rn Clinical Quality Name | Role | Phone | + +------+ + | Fadi Goodrich DO | PCP | | + +------+ + Encounter Details +--------+ + + + + | Date | Type | Department | Care Team | Description | +--------+ + + + + | 02/13/ | Telephone | Cardiology | Randell Franks, | | | 2016 | | Preventive at [facility] | MD [address] | | | | | [address] | [place], [place] | | | | | Mailcode: [facility] | [address] | | | | | [facility] | [phone] | | | | | and Healing, | | | | | | [address] | | | | | | [place], [place] | | | | | | [address] | | | | | | [phone] | | | +--------+ + + + [...] Rd | | | | | | [place], [place] | | | | | | [address] | | | | | | [phone] | | | | | | | | +--------+ + + + + | 08/19/ | Surgery | Surgery | Chilo, | OPEN VENTRAL HERNIA | | 2019 | | | MD Jorje [address] | REPAIR WITH | | | | | [address] | BIOLOGICAL MESH | | | | | [place], [place] | | | | | | [address] | | | | | | [phone] | | | | | | | | +--------+ + + + + | 09/15/ | Office | Cardiology | Randell Franks, | | | 2019 | Visit | | MD [address] | | | | | | [place], [place] | | | | | | [address] | | | | | | [phone] | | | | | | | | +--------+ + + + + documented as of this encounter Visit Diagnoses Not on filedocumented in this encounter"
[~2019-06-25 18:23] MED LIST changes: +HALOPERIDOL10 MG PO; +MAXALT10 MG PO; +TOPAMAX100 MG PO; +ZANAFLEX4 MG PO
--- OUTSIDE RECORDS SUMMARY | 2019-06-25 18:26 | XMS ---
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 ROMERO Security Wood Gouger Events No recent Security Events currently on file CRITERIA MET - Group Notification - 6 ED Visits in 6 Months - [facility] - Has Care Guidelines - PDMP - [facility] - 2 Visits in 30 Days CARE PROVIDERS JONES DAVISON Dentist: Bass Singer 05/23/2019-Current PHONE: [phone] Rob Tilley Electorate Officer/Spray Gunner 03/27/2018-Current PHONE: [phone] Bernard Hylton Internal Medicine: Pulmonary Disease 08/23/2018-Current PHONE: Unknown LOUIE HYLTON Primary Care Current PHONE: Unknown Rob Tilley Primary Care 03/27/2018-Current PHONE: [phone] Guidelines Source: [facility] Guidelines Date: 12/06/2018 Care Coordination: Receiving mental health services with [employer].\T\nbsp; Please contact [employer] for mental health concerns.\T\nbsp; [facility]: [phone]\T\ nbsp; Ronald: [phone].\T\nbsp; Care History Medical/Surgical 05/24/2019 [facility] - PATIENT HAS AN APT ON 06/16/[address] HYLTON. 05/11/2019 [facility] - Patient is currently established with [facility]. If patient is seen in the ED during business hours. Please contact CHWs at [facility]. Care Recommendation: This patient has had 5 or more Emergency Department visits in the last 12 months.\T\nbsp; Patient requires education on the scope and purpose of the ED as an acute care provider not a Primary Care Provider and should not be utilized for chronic conditions.\T\nbsp; These are guidelines and the provider should exercise clinical judgment when providing care. 08/23/2018 [facility] - PATIENT HAS A PCP APT TO ESTABLISH CARE ON 10/04/18 @ 10:00AM WITH DR HYLTON. Bacilio VISIT COUNT (12 MO.) 1 [facility] 1 [facility] [address] [facility] TOTAL 9 NOTE: Visits indicate total known visits. ED/UCC VISIT TRACKING (12 MO.) 06/25/2019 18:23 [facility] [place] TYPE: Emergency COMPLAINT: - ABDOMINAL PAIN 06/19/2019 06:34 [facility] [place] TYPE: Emergency COMPLAINT: - ABDOMINAL PAIN/VOMITING DIAGNOSES: - intermediate (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 - Prsnl hx of TIA (TIA), and cereb infrc w/o resid deficits - Anxiety disorder, unspecified - Obesity, unspecified - Personal history of urinary (tract) infections - Unspecified abdominal hernia without obstruction or gangrene - Allergy status to other antibiotic agents status - Unspecified abdominal pain - Allergy status to penicillin - Nausea with vomiting, unspecified - Allergy status to oth drug/meds/biol subst status - Other exterminator helper termite (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 06/01/2019 13:10 [facility] [place] TYPE: Emergency COMPLAINT: - HEADACHE/VISION ISSUES DIAGNOSES: - Allergy status to penicillin - Anxiety disorder, unspecified - Obesity, unspecified - Migraine, unsp, not intractable, without status migrainosus - Other exterminator helper termite (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 - Allergy status to oth drug/meds/biol subst status - intermediate (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 - Headache - intermediate (current) use of aspirin 05/23/2019 17:08 [facility] [place] TYPE: Emergency COMPLAINT: - BLOOD CLOT IN ARM DIAGNOSES: - Anxiety disorder, unspecified - Acute embolism and thrombosis of deep veins of r up extrem - Allergy status to penicillin - Other halfway (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 - Pain in right arm - exterminator helper (current) use of aspirin - Allergy status to oth drug/meds/biol subst status 05/20/2019 10:19 [facility] [place] TYPE: Emergency COMPLAINT: - ABD PAIN, VOMITING DIAGNOSES: - Generalized abdominal pain - intermediate (current) use of aspirin - Allergy status to oth drug/meds/biol subst status - Unspecified abdominal pain - Prsnl hx of TIA (TIA), and cereb infrc w/o resid deficits - Anxiety disorder, unspecified - Other exterminator helper termite (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 - Other chronic pain - Allergy status to penicillin 05/13/2019 17:18 [facility] TYPE: Emergency DIAGNOSES: 94905. A303 30697. Bariatric surgery status 22061. Ventral hernia without obstruction or gangrene 95859. Nausea with vomiting, unspecified 96142. Unspecified abdominal pain 73638. Nonspecific mesenteric lymphadenitis 05/10/2019 13:06 [facility] [place] TYPE: Emergency COMPLAINT: - ABD PAIN DIAGNOSES: - Nausea with vomiting, unspecified - Allergy status to oth drug/meds/biol subst status - Prsnl hx of TIA (TIA), and cereb infrc w/o resid deficits - Solitary pulmonary nodule - Other exterminator helper termite (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 - Anxiety disorder, unspecified - Allergy status to penicillin - Ventral hernia without obstruction or gangrene - intermediate (current) use of aspirin - Unspecified abdominal pain - Diarrhea, unspecified 12/03/2018 11:51 [facility] [place] TYPE: Emergency DIAGNOSES: - Strain of unsp musc/tend at lower leg level, right leg, init - RIGHT LEG PAIN DUE TO FALL 08/22/2018 18:05 [facility] [place] TYPE: Emergency COMPLAINT: - ABD PAIN DIAGNOSES: - Other exterminator helper termite (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 - Upper abdominal pain, [...] and cereb infrc w/o resid deficits - exterminator helper (current) use of oral hypoglycemic drugs - Personal history of urinary (tract) infections INPATIENT VISIT TRACKING (12 MO.) No inpatient visits to display in this time frame [email or web address]
[2019-06-25] MEDS ORDERED: CEPHALEXIN500 MG PO (22:41)
[2019-06-25] MEDS ORDERED: NORCO 5-325 TA1 EACH PO (22:41)
[2019-06-25] MEDS ORDERED: BACTRIM DS TAB1 EACH PO (22:41)
== END 2019-06-25 23:04 | disposition home or self-care (01) ==
LOC: ED 18:23
DX: L03.311 Cellulitis of abdominal wall (principal); I82.621 Acute embolism and thrombosis of deep veins of right upper extremity; G43.909 Migraine, unspecified, not intractable, without status migrainosus; F41.9 Anxiety disorder, unspecified; F17.200 Nicotine dependence, unspecified, uncomplicated; E66.9 Obesity, unspecified; Z88.8 Allergy status to other drugs, medicaments and biological substances; Z88.0 Allergy status to penicillin; Z79.899 Other long term (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; Z79.01 Long term (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
CPT/HCPCS: 99283; A9270

== ENCOUNTER 2019-09-02 21:22 | Inpatient (IN) | payer OTHER ==
[~2019-09-02] VITALS: Ht 147.3 cm; Wt 124.5 kg
[~2019-09-02 21:22] MED LIST changes: -SPIRONOLACTONE50 MG PO; -TORSEMIDE100 MG PO
--- OUTSIDE RECORDS SUMMARY | 2019-09-02 21:26 | XMS ---
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 ROMERO Security [employer] Events No recent Security Events currently on file CRITERIA MET - Group Notification - 6 ED Visits in 6 Months - [facility] - Has Care Guidelines - PDMP - [facility] - 2 Visits in 30 Days CARE PROVIDERS Eagle Nino Community Health Worker 07/03/2019-Current PHONE: [phone] JONES DAVISON Dentist: Aviation Project Manager 05/23/2019-Current PHONE: [phone] Rob Tilley Industrial Chemicals Supervisor/Building Serviceman 03/27/2018-Current PHONE: [phone] Bernard Hylton Internal Medicine: Pulmonary Disease 08/23/2018-Current PHONE: Unknown LOUIE HYLTON Primary Care Current PHONE: Unknown Rob Tilley Primary Care 03/27/2018-Current PHONE: [phone] Guidelines Source: [email or web address] [place] Guidelines Date: 12/06/2018 Care Coordination: Receiving mental health services with [facility].\T\nbsp; Please contact [facility] for mental health concerns.\T\nbsp; [place]: [phone]\T\ nbsp; [place]: [phone].\T\nbsp; Care History Medical/Surgical 06/27/2019 [facility] - PATIENT SELF DISCHARGED FROM [facility]-PCP IS NOW DR DAVISON AT [facility]. 06/27/2019 [facility] - PATIENT HAS AN APT WITH DR DAVISON ON 06/28/19 FOR FOLLOW UP AND ANOTHER APT WITH PCP FOR ER FOLLOW UP ON 07/06/19. - PLEASE REFER PATIENT TO THE WALK IN CLINIC FOR NON EMERGENT MEDICAL CONCERNS. 05/24/2019 [facility] - PATIENT HAS AN APT ON 06/16/[address] LIBBY. [place] VISIT COUNT (12 MO.) 1 [facility] 2 [facility] 7 [facility] Zamudio TOTAL 10 NOTE: Visits indicate total known visits. ED/UCC VISIT TRACKING (12 MO.) 09/02/2019 21:22 [facility] [place] TYPE: Emergency COMPLAINT: - ABDOMINAL PAIN 08/18/2019 13:47 [facility] TYPE: Emergency DIAGNOSES: 10837. amr 09550. Morbid (severe) obesity due to excess calories 97487. Ventral hernia without obstruction or gangrene 53124. Unsp abdominal hernia with obstruction, without gangrene 06/25/2019 18:23 [facility] [place] TYPE: Emergency COMPLAINT: - ABDOMINAL PAINY DIAGNOSES: - intermediate project manager (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 - Anxiety disorder, unspecified - Cellulitis of abdominal wall - Acute embolism and thrombosis of deep veins of r up extrem - Nicotine dependence, unspecified, uncomplicated - Migraine, unsp, not intractable, without status migrainosus - Unspecified abdominal pain - Allergy status to oth drug/meds/biol subst status - Other termite control service representative (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 - Allergy status to penicillin - Obesity, unspecified 06/19/2019 06:34 [facility] [place] TYPE: Emergency COMPLAINT: - ABDOMINAL PAIN/VOMITING DIAGNOSES: - intermediate project manager (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 - Prsnl hx [...] to oth drug/meds/biol subst status - Other senior care (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 06/01/2019 13:10 [facility] [place] TYPE: Emergency COMPLAINT: - HEADACHE/VISION ISSUES DIAGNOSES: - Allergy status to penicillin - Anxiety disorder, unspecified - Obesity, unspecified - Migraine, unsp, not intractable, without status migrainosus - Other senior care (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 - Allergy status to oth drug/meds/biol subst status - intermediate project manager (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 - Headache - residential (current) use of aspirin 05/23/2019 17:08 [facility] [place] TYPE: Emergency COMPLAINT: - BLOOD CLOT IN ARM DIAGNOSES: - Anxiety disorder, unspecified - Acute embolism and thrombosis of deep veins of r up extrem - Allergy status to penicillin - Other termite control service representative (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 - Pain in right arm - residential (current) use of aspirin - Allergy status to oth drug/meds/biol subst status 05/20/2019 10:19 [facility] [place] TYPE: Emergency COMPLAINT: - ABD PAIN, VOMITING DIAGNOSES: - Generalized abdominal pain - residential (current) use of aspirin - Allergy status to oth drug/meds/biol subst status - Unspecified abdominal pain - Prsnl hx of TIA (TIA), and cereb infrc w/o resid deficits - Anxiety disorder, unspecified - Other senior care (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 - Other chronic pain - Allergy status to penicillin 05/13/2019 17:18 [facility] TYPE: Emergency DIAGNOSES: 53120. A303 91131. Bariatric surgery status 06149. Ventral hernia without obstruction or gangrene 61692. Nausea with vomiting, unspecified 41599. Unspecified abdominal pain 61464. Nonspecific mesenteric lymphadenitis 05/10/2019 13:06 [facility] [place] TYPE: Emergency COMPLAINT: - ABD PAIN DIAGNOSES: - Nausea with vomiting, unspecified - Allergy status to oth drug/meds/biol subst status - Prsnl hx of TIA (TIA), and cereb infrc w/o resid deficits - Solitary pulmonary nodule - Other termite control service representative (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 - Anxiety disorder, unspecified - Allergy status to penicillin - Ventral hernia without obstruction or gangrene - intermediate project manager (current) use of aspirin - Unspecified abdominal pain - Diarrhea, unspecified 12/03/2018 11:51 [facility] TYPE: Emergency DIAGNOSES: - Strain of unsp musc/tend at lower leg level, right leg, init - RIGHT LEG PAIN DUE TO FALL INPATIENT VISIT TRACKING (12 MO.) 08/18/2019 13:47 [facility] TYPE: Surgery DIAGNOSES: 99806. Unsp abdominal hernia with obstruction, without gangrene 24503. Morbid (severe) obesity due to excess calories 07356. Ventral hernia without obstruction or gangrene [email or web address]
[2019-09-02] MEDS ORDERED: CHLORPROMAZINE25 MG PO (21:45)
[2019-09-02] MEDS ORDERED: HYDROMORPHONE HC2 MG PO (21:45)
--- NOTE | 2019-09-03 03:49 | NUR ---
PATIENT ARRIVED FROM ER AT 0223 VIA STRETCHER WITH CUSTOMER CARE SPECIALIST. PATIENT GOT OFF THE STRETCHER AND WALKED TO THE BED. SCD'S PUT IN PLACE, CPOX ON AND PATIENT'S VS WNL. ABD OVER OPEN SURGICAL SITES REPLACED DUE DUE FAIR AMOUNT OF BLOODY DRAINAGE. PATIENT HAS A LARGE HEMATOMA RIGHT IN THE MIDDLE OF HER ABD. PATIENT HAS A LARGE PANUS AND HAS THE SMELL OF YEAST BENEATH THE PANUS AND THE SKIN IS REDDENED UNDERNEATH. IV INFUSING D5 AND 1/2NS WITH 20KCL AT 125MLS/HR. PATIENT JUST WANTS TO SLEEP. 0.6MLS DILAUDID GIVEN IV. CALLLIGHT IN REACH.
--- NOTE | 2019-09-03 05:06 | NUR ---
PATIENT RESTING QUIETLY AND HAS ONLY HAD THE ONE DOSE OF DILAUDID SINCE SHE ARRIVED ON MED/SURG. EYES ARE CLOSED, AND CPOX WNL. RESPIRATIONS REGULAR AND EVEN WITH A SLIGHT SNORE. CALL LIGHT IN REACH.
--- NOTE | 2019-09-03 06:59 | NUR ---
PATIENT GOT UP TO BEDSIDE COMMODE AND VOIDED 600MLS AND WAS GIVEN 0.6MG IV DILAUDID FOR 8/10 ABD PAIN AND SOILED ABD ABD CHANGED. PATIENT BACK IN BED NOW AND CALL LIGHT IN REACH.
--- NOTE | 2019-09-03 08:06 | NUR ---
PATIENT RESTING IN BED. PATIENT REFUSED AM CARE, AM CARE SET UP IN BATHROOM FOR USE AT A LATER TIME. PATIENT IS QUIET AND WITHDRAWN. PATIENT CALL LIGHT IN REACH. NO OTHER NEEDS AT THIS TIME.
--- NOTE | 2019-09-03 08:11 | NUR ---
PT CONTIOUES TO HAVE PAIN AT THIS TIME. 03/05 EXPLAINED TO PT THAT I WILL HAVE TO CALL .
--- NOTE | 2019-09-03 08:30 | NUR ---
PATIENT CALLED, STATED HER NOSE RING POKED HER NOSE CAUSING IT TO BLEED. PATIENT GIVEN TISSUES AND WASH CLOTH NEEDED. PATIENT COMPLAINS OF "NOT FEELING GREAT" AND A PAIN AT AN 8/10. RN NOTIFIED. NO OTHER NEEDS AT THIS TIME.
[2019-09-03] MEDS ORDERED: RIZATRIPTAN5 M1 PO (08:48)
[2019-09-03] MEDS ORDERED: WARFARIN SODIUM5 MG (08:52)
--- NOTE | 2019-09-03 10:20 | NUR ---
PATIENT REQUESTING A WET WASH CLOTH BECUASE HER INCISION IS BLEEDING. RN NOTIFIED. PATIENT CALL LIGHT IN REACH. NO OTHER NEEDS AT THIS TIME.
--- NOTE | 2019-09-03 10:46 | NUR ---
DR ESTRADA INTO SEE PT AND NEW ORDERS RECEIVED AT THIS TIME. ALSO MEDICATED FOR PAIN WITH 1MG DILAUDID. ABD DRESSING CHANGED X 2 THIS AM FOR INCREASED BLEEDING.
--- NOTE | 2019-09-03 11:45 | NUR ---
PT RECEIVED NEW ORDERS SHE IS ABLE TO EAT REGULAR DIET AT THIS TIME., WHICH HAS MADE THE PT VERY HAPPY. PT MOTHER HAS BROUGHT IN HER OWN MEDICATIONS. THEY WHERE SENT TO [facility] TO BE USED THIS HS.
[2019-09-03] MEDS ORDERED: LATUDA40 MG PO (11:48)
--- NOTE | 2019-09-03 12:26 | NUR ---
pt medication that was in the safe was picked up by her mother Katalina Padilla. #[id number]
--- NOTE | 2019-09-03 12:27 | NUR ---
PT MEDICATED WITH 0.5MG DILAUDID IVP AT THIS TIME FOR PAIN, PT IS CURRENTLY SITTING UP IN BED EATTING LUNCH AND TALKING ON THE PHONE.
[2019-09-03] MEDS ORDERED: TOPIRAMATE50 MG PO (13:18)
--- NOTE | 2019-09-03 14:01 | NUR ---
PT UP TO THE POCKET CUTTER AT THIS TIME LINE CHANED AND PT WAS AND DID WELL AMBULATING TO THE BATHROOM FOR HER SHOWER. PT MOVES QUITE WELL FOR HER SIZE. PT WANTED PAIN MEDICATION, BUT EXPLAINED THAT WITH HER GETTING UP TO THE POCKET CUTTER THAT SHE WOULD HAVE TO WAIT TILL SHE WAS BACK IN BED DUE TO THE MEDICATIONS CAN MAKE HER SLEEPY. PT UNDERSTOOD AND "I THINK THAT IS A GOOD THOUGHT" PT OLD DRESSING REMOVED AND A NEW ONE PLACED WITH ABD, 4X4 AND ORLA WOOD WITH 4 OPSITES OVER THE INCISION FOR THE SHOWER. PT SALINE LOCKED FOR HER SHOWER ALSO. THIS ASPHALT COATER IS GOING HOME AND VERBAL REPORT GIVEN TO KATERINA AT THIS TIME.
--- NOTE | 2019-09-03 14:11 | NUR ---
PATIENT SHOWERED WITH SURGERY PREP SOAP. PATIENT'S LINENS CHANGED, PATIENT BACK IN BED WITH RN IN ROOM TO ASSESS DRESSING. PATIENT HAS REDNESS AND SORES UNDER HER PANUS. RN NOTIFIED. CALL LIGHT IN REACH. NO OTHER NEEDS AT THIS TIME.
[2019-09-03] MEDS ORDERED: KLOR-CON M2020 MEQ PO (14:36)
[2019-09-03] MEDS ORDERED: VITAMIN D250 MCG PO (14:36)
[2019-09-03] MEDS ORDERED: TORSEMIDE100 MG PO (14:37)
[2019-09-03] MEDS ORDERED: SPIRONOLACTONE50 MG PO (14:37)
[2019-09-03] MEDS ORDERED: MULTI VITAMIN1 EACH PO (14:38)
[2019-09-03] MEDS ORDERED: PROBIOTIC1 EAC2 PO (14:39)
[2019-09-03] MEDS ORDERED: B-121000 MC2 PO (14:39)
--- NOTE | 2019-09-03 15:21 | NUR ---
Medications reconciled using pharmacy fill records and patient interview. Patient is anticoagulated with warfarin, taking 10mg daily. Her last dose was 09/02/19 in the evening. We will be using her Latuda while inpatient. Please assure that it is returned to her upon discharge
--- NOTE | 2019-09-03 17:15 | NUR ---
Patient reports pain of 9/10, prn pain medication given (see MAR). Patient reports headache, prn medication given (see MAR). Dinner delivered. Patient sitting up in bed watching tv. Denies further needs at this time, call light within reach.
--- NOTE | 2019-09-03 17:48 | NUR ---
PATIENT SITTING UP IN BED. VITAL SIGNS AND I&O DONE. CALL LIGHT WITHIN REACH. NO OTHER NEEDS AT THIS TIME
--- NOTE | 2019-09-03 18:00 | NUR ---
Patient reports pain, prn pain medication given. Lab in room to draw blood. Denies further needs at this time, call light within reach.
--- NOTE | 2019-09-03 18:48 | NUR ---
Dr. Aden notified of patient's INR lab value
--- NOTE | 2019-09-03 20:52 | NUR ---
ASSESSMENT COMPLETE, SCHEDULED MEDS GIVEN (SEE EMAR). BP RESULT OF 96/54, MANUAL. APICAL HR 78, DR ALTMAN MADE AWARE DUE TO SCHEDULED CARDIAC MED (SEE EMAR). PER [place], OKAY TO ADMINISTER CARDIAC MED. DEHISCENCE X2 TO ABDOMEN NOTED, SEEPING SANGUINEOUS BLOOD, GAUZE AND FEMININE PAD IN PLACE TO REINFORCE SITE PER MD ORDERS. PT REPORTING HEADACHE AND 8-9 ABDOMINAL PAIN, PRN PAIN AND MIGRAINE MEDICATION GIVEN (SEE EMAR). SCD'S ON. IV FLUIDS INFUSING AT 85MLS/HR, SITE WNL. SNACK PROVIDED, CALL LIGHT IN REACH. NO FURTHER NEEDS.
--- NOTE | 2019-09-03 22:36 | NUR ---
SCHEDULED IV ABX INFUSING, SITE WNL. PT IN BED RESTING, CPOX IN PLACE. 93% ON RA, HR 72. CALL LIGHT IN REACH.
--- NOTE | 2019-09-03 23:00 | NUR ---
ORDERS FOR 1MG DILAUDID Q2H AND ORDER FOR 0.5MG DILAUDID Q30MIN. CLARIFIED ORDERS WITH NATALIE. 0.5MG Q30PRN IS THE MORE RECENT ORDER. PER SAMINA ESTRADA TO DC 1MG DILAUDID Q2H PRN.
--- NOTE | 2019-09-04 01:00 | NUR ---
THIS RN ON PHONE WITH LAB. LAB ALREADY MADE AWARE OF FFP ORDERS BY CONTROL SUPERVISORCHAVO LOMBARDO. PER [place] FROM LAB, WAITING ON LAB RESULTS AND PLASMA TO THAW. LAB TO CALL WHEN FFP IS READY FOR HOUSE MOVER SUPERVISOR.
--- NOTE | 2019-09-04 01:16 | NUR ---
DR ALTMAN UPDATED ON PT REGARDING ORDERS FROM [facility] FOR FFP TRANSFUSION AND HEPARIN ORDERS.
--- NOTE | 2019-09-04 01:34 | NUR ---
VITALS DONE AND CHARTED. BEDSIDE TABLE AND CALL LIGHT IN REACH.
--- NOTE | 2019-09-04 02:12 | NUR ---
1 OF 4 UNITS OF FFP RECEIVED FROM LAB. PLASMA DONATION AND PT INFOMRATION COMPARED AND VERIFIED WITH THIS RN AND SECOND RN MUNIRA. PLASMA INFUSING AT 120MLS/HR, PRE INFUSION VVS. PT DENIES S/SX OF ALLERGIC REACTION. IV SITE WNL.
--- NOTE | 2019-09-04 02:27 | NUR ---
15 MINUTE VSS, PT RESTING IN BED. DENIES S/SX OF ALLERGIC REACTION. RATE INCREASED TO 450MLS/HR. SITE WNL. NO FURTHER NEEDS, CALL LIGHT IN REACH.
--- NOTE | 2019-09-04 02:57 | NUR ---
1 OF 4 UNITS OF FFP COMPLETE, VSS. PT DENIES S/SX OF ALLERGIC REACTION. IV SITE WNL. 2 OF 4 UNITS PPF COMPARED AND VERIFIED WITH PT'S INFORMATION WITH SECOND RN LETICIA. 0300: SECOND UNIT PPF STARTED AT THIS TIME AND INFUSING AT 120MLS/HR. SITE WNL. THIS RN IN ROOM.
--- NOTE | 2019-09-04 03:12 | NUR ---
15 MINUTE VS FROM 2 OF 4 UNIT FFP STABLE. PT DENIES S/SX OF ALLERGIC REACTION. IV SITE WNL, RATE INCREASED TO 500MLS/HR. CALL LIGHT IN REACH.
--- NOTE | 2019-09-04 04:30 | NUR ---
15 minute of ffp 3 of 4 stable. pt resting quielty in bed, no s/sx of allergic reaction verbalized. infusion rate increased to 500mls/hr, site wnl.
--- NOTE | 2019-09-04 04:50 | NUR ---
UNIT 3 OF 4 OF FFP COMPLETE. VSS, PT DENIES S/SX OF ALLERGIC REACTION. AT 0455: UNIT 4 OF 4 OF FFP COLLECTED FROM LAB AND VERIFIED INFORMATION OF DONOR WITH PT WITH SECOND RN MUNIRA. PREINFUSION VSS, IV SITE WNL. INFUSING AT 120MLS/HR. THIS RN IN ROOM AND STAYING WITH PT FOR 15 MINUTES.
--- NOTE | 2019-09-04 05:10 | NUR ---
15 MINUTE VS FROM UNIT 4 OF 4 OF FFP STABLE. PT CONTINUES TO DENY S/SX OF ALLERGIC REACTION. REPORTING 8-9/10 PAIN, PRN PAIN MEDICATION GIVEN. NO FURTHER NEEDS. IV SITE REMAINS WNL. CALL LIGHT IN REACH. FFP RATE INCREASED TO 500MLS/HR.
--- NOTE | 2019-09-04 05:38 | NUR ---
LEFT AC SITE LEAKING AT 500MLS/HR. INFUSION DECREASED TO 100MLS/HR. MUNIRA IGLESIAS ATTEMPTING TO PLACE NEW IV.
--- NOTE | 2019-09-04 06:10 | NUR ---
This nurse enters room. Patient standing next to bed. IV noted to be partially out. Flushed with NS and floated catheter back in vein. Flushes well, no swelling or coolness to site noted. Denies discomfort. New dressing applied and wrapped with coban.
--- NOTE | 2019-09-04 06:10 | NUR ---
NEW IV PLACED BY PACO IGLESIAS. UNIT 4 OF 4 OF FFP COMPLETE, VSS. SITE WNL. LAB IN ROOM FOR LAB DRAW. IV MAINTENANCE FLUIDS RESUMED. LEFT AC SITE CONTINUES TO LEAK, DISCONTINUED BY October.
--- NOTE | 2019-09-04 06:30 | NUR ---
SCHEDULED NAI BX AND PRN PAIN MEDICATION GIVEN (SEE EMAR).
--- NOTE | 2019-09-04 07:33 | NUR ---
PT ALERT AND INTERACTIVE AT BEDSIDE REPORT C/O HEADACHE MEDICATED PER ORDERS
--- NOTE | 2019-09-04 09:26 | NUR ---
patient showered with hibaclens for pre-surgery. bed linens changed.
--- NOTE | 2019-09-04 09:26 | NUR ---
PRE-OP TEACHING COMPLETE PT VERBALIZES UNDERSTANDING QUESTIONS ASKED AND ANSWERED. HIBACLEANSE SHOWER COMPLETE, BJ REMOVED, PT CONTINUES NPO. SCD'S IN PLACE
--- NOTE | 2019-09-04 11:18 | NUR ---
pt to o/r via bed
--- NOTE | 2019-09-04 12:38 | NUR ---
09/04/19 1238 Yessenia Lang 1221 PATIENT TO PACU FROM OR, MEDICATED PATIENT FOR PAIN RATING 9/10 ON PAIN SCALE. DRESSING C/D/I. PATIENT BREATHING REGULAR AND EQUAL. APPEARS DROWSY 1230 MEDICATED PATIENT FOR PAIN 9/10 STATES " PAIN IS BETTER BUT STILL THE 9/10 ON PAIN SCALE." PATIENT APPEARS DROWSY. ENCOURAGED TO COUGH AND DEEP BREATHE. PROVIDED PILLOW FOR SPLINTING. PATIENT REPORTS FELLING WARM.
--- NOTE | 2019-09-04 13:10 | NUR ---
pt back from pacu alert and talkative mother in the room. pt wants food right away pudding and grahm crackers provided
--- NOTE | 2019-09-04 13:30 | NUR ---
pt c/o pain and hunger ibuprofen administered and soup with crackers provided. fresh h20 at bedside, pt continues alert and talkative
--- NOTE | 2019-09-04 14:22 | NUR ---
PT CONTINUES TO C/O PAIN AND HUNGER SANDWICH ORDERED .5 DILAUDID ADMINISTERED.
--- NOTE | 2019-09-04 14:54 | NUR ---
PT UP TO THE TOILET ABLE TO VOID WITHOUT DIFFICULTY RETURNS TO RESTING IN BED AGREES SHE IS COMFORTABLE. PT REMAINS AWAKE ALERT WATCHING TV TEXTING ON PHONE. DENIES NAUSEA.
--- NOTE | 2019-09-04 16:26 | NUR ---
PT RESTING IN BED, VITALS CHECKED. PT HAS NO C/O APPEARS DROWSY. PULSE OX IN PLACE CALL LIGHT IN REACH.
--- NOTE | 2019-09-04 17:34 | NUR ---
PT C/O INCREASING PAIN AGAIN ENCOURAGED HER TO AMBULATE THE GELLER SHE DECLINES STATES "MAYBE AFTER DINNER" UPRIGHT IN BED AT THIS TIME EATING A HAMBURGER.
--- NOTE | 2019-09-04 18:16 | NUR ---
PT RESTING IN BED ENCOURAGED TO AMBULATE SHE DECLINES STATING SHE JUST WANTS TO REST FOR A TIME.
--- NOTE | 2019-09-04 19:00 | NUR ---
SHIFT REPORT RECEIVEDF LAURIE HENDERSON RN DANIELLE AT BEDSIDE. PT IN BED REQUESTING TO VOID. PT SBA TO BATHROOM, INSTRUCTED TO PULL LIGHT WHEN DONE. FOAM DRESSING WITH OPSITE IN PLACE, SMALL RED PEA SIZED SHADOWING NOTED TO DRESSING, DIAMOND DRAIN IN PLACE. SEROSANGUINEOUS OUTPUT.
--- NOTE | 2019-09-04 19:42 | NUR ---
PT REPORTING 7/10 PAIN. WHEN THIS RN ENTERED ROOM, PT FOUND RESTING IN BED AND TALKING ON THE PHONE. CPOX IN PLACE, PT ON RA. O2 SAT AND HR WNL. PT GIVEN PRN PAIN MEDICATION (SEE EMAR). PT REQUESTING SNACK, MACARIO OCTOBER IN ROOM WITH SNACK. CALL LIGHT IN REACH.
--- NOTE | 2019-09-04 21:10 | NUR ---
ASSESSMENT COMPLETE, VSS. SCHEDULED MEDS GIVEN (SEE EMAR). PT RECENTLY MEDICATED WITH PRN PAIN MEDICATION AT BEGINNING OF SHIFT. PT CURRENTLY REPORTS 6/10 PAIN, NO MOANING OR SIGNS OF DISTRESS NOTED.PT RESTING IN BED AND WATCHING TELEVISION, RECENTLY GIVEN SNACK. RESPIRATIONS EVEN AND UNLABORED.PT EDUCATED PAIN MANAGEMENT AND ON USE AND S/E OF NARCOTICS. NO CHANGES REGARDING ABDOMINAL DRESSING OR DIAMOND SITE. EDUCATION ALSO PROVIDED ON DRAINING OF DIAMOND AND SUBQ INJECTIONS. CPOX ALSO IN PLACE. SCD'S ON. IV FLUIDS INFUSING AT 85MLS/HR, SITE WNL.
--- NOTE | 2019-09-04 22:04 | NUR ---
SCHEDULED IV ABX INFUSING. PT RESTING IN BED, RESPIRATIONS EVEN AND UNLABORED. CPOX IN PLACE, PT ON RA. O2 SAT 90'S, HR 78. NO DISTRESS NOTED. CALL LIGHT IN REACH.
--- NOTE | 2019-09-04 23:31 | NUR ---
PT RESTING QUIELTY IN BED, EYES CLOSED. RESPIRATIONS EVEN AND UNLABORED. NO DISTRESS OR SIGNS OF PAIN NOTED. FACIAL EXPRESSION RELAXED, NO CRYING OR MOANING NOTED. CPOX IN PLACE, PT ON RA. IV FLUIDS INFUSING, CALL LIGHT IN REACH.
--- NOTE | 2019-09-05 00:48 | NUR ---
PT RESTING IN BED, EYES CLOSED. RR WNL, UNLABORED. IV FLUIDS INFUSING AT 85MLS/HR, SITE WNL. NO DISTRESS NOTED, PT APPEARS COMFORTABLE. CALL LIGHT IN REACH, CPOX IN PLACE. O2 SAT AND HR WNL.
--- NOTE | 2019-09-05 01:59 | NUR ---
ASSESSMENT COMPLETE, NO NEW CHANGES OR CONCERNS. WHEN DISCUSSING PAIN MANAGEMENT, PT DECLINES PRN MOTRIN AND STATES, "I CAN'T HAVE THAT BECAUSE OF MY GASTRIC BYPASS". REPORTING 8/10 PAIN, MOANING INTERMITTENTLY. PRN DILAUDID GIVEN. DISCUSSED PLAN TO ADMINISTER PRN TYLENOL AT NEXT REQUEST FOR PAIN MEDICATION, PT AGREES AND VERBALIZES UNDERSTANDING. NO CHANGE IN ABDOMINAL DRESSING OR DIAMOND SITE FROM PREVIOUS ASSESSMENT. VSS, IV FLUIDS INFUSING AT 85MLS/HR. NEW BAG HUNG AND INFUSING, SITE WNL. CALL LIGHT IN REACH.
--- NOTE | 2019-09-05 02:57 | NUR ---
PT RESTING IN BED WITH EYES CLOSED, RR WNL. CPOX IN PLACE. O2 SAT AND HR WNL. CALL LIGHT IN REACH.
--- NOTE | 2019-09-05 05:05 | NUR ---
PT HAD WALTER, SLEPT MOST OF SHIFT. VSS, CPOX IN PLACE AND A/OX4. PAIN CONTROLLED WITH PRN TYLENOL AND GIVEN X2 DOSES OF 0.5MG DILAUDID. ABDOMINAL FOAM DRESSING INTACT, VERY SMALL RED SHADOWING. DIAMOND DRAIN IN PLACE, SEROSANGUINEOUS OUTPUT. PT GIVEN VERBAL EDUCATION IN DIAMOND DRAIN CARE AND SUBQ SELF-INJECTION. SBA WITH AMBULATION, USES CALL LIGHT APPROPERIATELY. SCD'S ON. IV FLUIDS INFUSING AT 85MLS/HR, SITE WNL. REGULAR DIET, NO NAUSEA MEDS GIVEN. PROVIDED WITH MULTIPLE SNACKS.
--- NOTE | 2019-09-05 05:50 | NUR ---
SCHEDULED IV ABX INFUSING, SITE WNL. PT DROWSY, AWOKE EASILY FOR VS. CPOX IN PLACE, PT ON RA. O2 SAT AND HR WNL. NO NEEDS VERBALIZED BY PT, CALL LIGHT IN REACH. MACARIO SOLANO COMPLETING VS.
--- NOTE | 2019-09-05 06:05 | NUR ---
PUMP CLEARED. PRN PAIN MEDICATION GIVEN FOR 8/10 PAIN, (SEE EMAR). NO FURTHER NEEDS, CALL LIGHT IN REACH.
--- NOTE | 2019-09-05 07:23 | NUR ---
RECIEVED BEDSIDE REPORT FROM AQUILES IGLESIAS. PT LYING IN BED APPEARS TO BE SLEEPING SOUNDLY, RESP EVEN AND UNLABORED. CPOX IN PLACE, PT SATTING 93% ON RA.
--- NOTE | 2019-09-05 08:26 | HP ---
[facility] [address], [place] [address] Signed ADMISSION DATE: 09/02/2019 REASON FOR ADMISSION: This 44-year-old morbidly obese white woman is admitted through the emergency room with an abdominal wound, large hematoma and separation of the wound with drainage of bloody fluid. HISTORY: This patient underwent an abdominal wall reconstruction without implantation of mesh (according to her) two weeks ago by Dr. Woo at [facility]. She had been chronically anticoagulated with Coumadin for a pulmonary embolism. She suffered from a right upper extremity arm deep venous thrombosis within the past 2 years or so. Bridge therapy with withdrawal of Coumadin for two days prior to operation and initiation of Lovenox was undertaken perioperatively. She was promptly resumed on Coumadin postoperatively as well as Lovenox and recently discontinued Lovenox and now on Coumadin alone. She noted swelling in the postoperative period, but did not say too much about it. Over the past 24 hours, she has had separation of some of the skin of the wound with egress of bloody fluid and persistent oozing. She presented to the emergency room where she was evaluated by Dr. Barron and given the findings clinically, a CT scan was performed. This showed a large hematoma in the subcutaneous space directly over the area of abdominal wall reconstruction. Notably, there was no sign of fascial separation. She did not have drains postoperatively, she says. The patient in aggregate has lost 265 pounds over the past few years by various methods and most importantly, a bariatric operation. She has gone to a reported weight of 265 pounds. At one time, she was over 550 pounds. The patient has a number of other comorbidities including not only her obesity but migraine headache history, anxiety, gastric bypass. She has had appendectomy, cholecystectomy, sinus operation and some psychiatric issues are not well characterized. ALLERGIES: She is considered to have allergies of Zofran, penicillin, diphenhydramine and bromocriptine. MEDICATIONS: At admission have included Dilaudid 2 mg every 6 hours for pain, chlorpromazine 25 mg p.o. as needed for nausea, atenolol 50 mg p.o. daily, Citracal tablets, [place] Thyroid Electronically Signed By: MORELIA ESTRADA MD 09/05/19 0826 PATIENT NAME: DYLAN ROMERO HISTORY AND PHYSICAL DATE OF : 79 REPORT #: [id number] PHYSICIAN: MORELIA ESTRADA MD PCP: JONES DAVISON MD REPORT IS CONFIDENTIAL AND NOT TO BE RELEASED WITHOUT AUTHORIZATION [facility] [address], [place] [address] Signed 30 mg daily, torsemide 100 mg p.o. b.i.d., spironolactone 50 mg p.o. daily, magnesium oxide 400 mg daily, alprazolam 1 mg p.o. b.i.d., Reglan 10 mg p.o. t.i.d., Coumadin 10 mg p.o. daily, topiramate (Topamax) 100 mg p.o. t.i.d., Maxalt 10 mg p.o. daily, vitamin D2 50,000 units twice weekly, vitamin C 1000 mg daily, Paxil 40 mg at bedtime, lurasidone (Latuda) 20 mg p.o. b.i.d., phentermine 37.5 mg p.o. daily, Mirapex 0.125 mg p.o. at bedtime, DSS 240 mg p.o. daily, iron gluconate 324 mg p.o. t.i.d., potassium chloride 20 mEq p.o. b.i.d. SOCIAL HISTORY: She lives with her mother who serves as her overall vp medical. They live in [place]. REVIEW OF SYSTEMS: She does have pain in the area of the hematoma. She has had no fever or chills. She denies shortness of breath. Denies any particular leg swelling or other problem. PHYSICAL EXAMINATION: GENERAL: This is a pleasant white woman who does not appear to be toxic. VITAL SIGNS: Height is 4 feet 10 inches. She is 124 kg and a BMI of 57.4. HEENT: Her airway looks friendly with a Mallampati class of 2 at this point. NECK: Trachea is midline. CHEST: Shows normal respiratory excursion without tachypnea. HEART: Regular. ABDOMEN: Quite markedly obese still. There are scars from laparoscopic surgery in the past. There is a midline incision above the umbilicus that is swollen and with areas of separation of the skin to a degree. Tense hematoma was beneath it. There is no fluctuance or crepitus. EXTREMITIES: Including upper extremities show marked obesity and redundant skin, but no sign of swelling or erythema. DIAGNOSTIC DATA: CT scan is reviewed in detail showing intact fascia and no sign of fascial defect. A prior hernia that had transverse colon is no longer present. There is subcutaneous edema associated with her large abdominal pannus. Intraabdominal abnormalities are lacking, specifically no evidence of bowel obstruction. There is mild stranding in the sigmoid area, but no overt abscess or other abnormality. There is considered to be a few locules of gas within the hematoma, but it does appear to be in the superficial soft tissues and outside the intraabdominal cavity. An IUD is noted in the uterus incidentally. ASSESSMENT: The patient has a large wound hematoma, which is now causing a fair amount of pain and Electronically Signed By: MORELIA ESTRADA MD 09/05/19 0826 PATIENT NAME: DYLAN ROMERO HISTORY AND PHYSICAL DATE OF : 79 REPORT #: [id number] PHYSICIAN: MORELIA ESTRADA MD PCP: JONES DAVISON MD REPORT IS CONFIDENTIAL AND NOT TO BE RELEASED WITHOUT AUTHORIZATION [facility] [address], [place] [address] Signed separation of the skin and egress of blood. Her lab studies in the emergency room showed an INR of 2.0. Only days ago, it was 2.3, she says when she was still on the Lovenox. Care must be taken to avoid recurrent deep venous thrombosis whether lower extremities or upper extremities, but the hematoma has occurred largely related to anticoagulation perioperatively. It appears the abdominal wall reconstruction remains intact. Air locules within the hematoma are problematic for infection, though she does not appear septic per se. Her white count is elevated at 14.6. I have recommended she undergo evacuation of the hematoma and likely placement of drain. An INR of 2.0 is not excessive, but problematic bleeding should be avoided as much as possible. She does have sequential compression device stockings on her lower extremities and full activity of her upper extremities. I know of no evaluation that showed her to have a hypercoagulable state and likely her previous thrombotic problems were related to inactivity and extreme morbid obesity. Though we are hoping to improve her INR to allow for safe evacuation of the hematoma, I would not recommend a full reversal of it with vitamin K or fresh frozen plasma as the rebound hypercoagulable state with such undertaking is likely more seriously harmful than any oozing of blood that might occur with evacuation of the hematoma itself. I discussed all this with her. We will obtain a repeat INR to see if the trend is improving likely allowing for evacuation of hematoma today. Given her complex other medical problems, I will also consult the hospitalist for input on ongoing medications. I suspect she will be here more than a day or so. MD CARMEN Mccall/CARLOSL /[id number] cc: MD Jones Bunch MD Robert Martindale, MD Electronically Signed By: MORELIA ESTRADA MD 09/[birth year]/1926 PATIENT NAME: DYLAN ROMERO HISTORY AND PHYSICAL DATE OF : [birth year] REPORT #: [id number] PHYSICIAN: MORELIA ESTRADA MD PCP: JONES DAVISON MD REPORT IS CONFIDENTIAL AND NOT TO BE RELEASED WITHOUT AUTHORIZATION [facility] [address] [place] [id number] Signed Copies: NETTE BARRON MD, ROBERT D DMD MARTINDALE, ROBERT MD ~ Electronically Signed By: MORELIA ESTRADA MD 09/05/1924 PATIENT NAME: DYLAN ROMERO HISTORY AND PHYSICAL DATE OF : [birth year] REPORT #: [id number] PHYSICIAN: MORELIA ESTRADA MD PCP: JONES DAVISON MD REPORT IS CONFIDENTIAL AND NOT TO BE RELEASED WITHOUT AUTHORIZATION
--- NOTE | 2019-09-05 08:30 | OR ---
[facility] [address], [place] [address] Signed DATE OF OPERATION: 09/04/2019 SURGEON: Morelia Estrada MD PREOPERATIVE DIAGNOSES: 1. Large wound hematoma (symptomatic). 2. Recent (two weeks[facility] 3. Morbid obesity (current BMI 57, previously 89) with history of gastric bypass operation. POSTOPERATIVE DIAGNOSES: 1. Large wound hematoma (symptomatic). 2. Recent (two weeks) complex incisional hernia repair, Dr. Chilo ARBOLEDA. 3. Morbid obesity (current BMI 57, previously 89) with history of gastric bypass operation. 4. Large hematoma, 600 mL. PROCEDURES: 1. Exam under anesthesia. 2. Evacuation of wound hematoma with Gram stain, cultures, irrigation and placement of drain. ANESTHESIA: General endotracheal; Morelia Coppola CRNA. INDICATION: This morbidly obese, BMI 57, white woman has undergone a gastric bypass previously with a BMI of greater than 89. She has had great benefit from the operation having lost a considerable amount of weight and resolution of diabetes. Approximately 2 weeks ago, she underwent complex incisional hernia repair by Dr. Woo at [facility]. The patient has a relatively distant history of pulmonary embolism related to an upper extremity deep venous thrombosis and had been anticoagulated. She was off her Coumadin 2 days prior to her operation recently and promptly resumed with Coumadin as well as Lovenox. She noticed swelling at the incision site a few days ago, as well as egress of blood and presented to the emergency room on September 02, 2019, where CT scan was performed, which showed a very large hematoma of the wound. Notably, the fascial closure is intact. She did not have implantation of mesh during this operation and primary fascial closure was accomplished. Her INR was initially 2.0, subsequently 2.3, and she has been medically managed Electronically Signed By: MORELIA ESTRADA MD 09/05/19 0830 PATIENT NAME: DYLAN ROMERO OPERATIVE REPORT DATE OF : 79 REPORT #: [id number] PHYSICIAN: MORELIA ESTRADA MD PCP: JONES DAVISON MD REPORT IS CONFIDENTIAL AND NOT TO BE RELEASED WITHOUT AUTHORIZATION [facility] [address], [place] [address] Signed anticipating evacuation of the hematoma. She has been maintained with heparin subcutaneously administered since improvement of her INR to 1.5 with fresh frozen plasma 4 units. She is now to undergo evacuation of the hematoma. She understands the risks of bleeding, infection, and other complications including recurrent thrombosis or pulmonary embolism despite efforts to avoid that. The hematoma was quite painful and egress seen through the wound perpetually. FINDINGS: Indeed, there was well organized clot within the subcutaneous space. The clot measured approximately 600 mL in volume. The fascial repair was well intact. No sign of recurrent herniation. There was no obvious source of the bleeding that occurred. Gram stain and cultures were obtained. Copious irrigation undertaken and clot remnant removed. Wound was closed in layers with interrupted 2-0 Vicryl and interrupted 3-0 Vicryl for the deep dermal layer of the skin and a drain was placed as well. DESCRIPTION OF PROCEDURE: The patient was brought to the operating room, given a general endotracheal anesthetic. Preoperative antibiotic Ancef was given. Sequential compression device stockings used and the patient already on heparin subcutaneously administered. The abdomen was prepared with a chlorhexidine solution after photographs were taken. The incision above the umbilicus was incised and entered into a well-formed gelatinous clot. Gram stain and culture swabs were used. The clot was then evacuated manually. Considerable amount of clot was noted about 600 mL in aggregate. Irrigation was undertaken. There was no sign of ongoing bleeding site particularly. There was oozing as would be expected from the deep dermal layer. This was secured with electrocautery. Copious irrigation was undertaken and debridement of clot and loose particulates of fat undertaken with a laparotomy pad. Once hemostasis was assured, a right lower quadrant stab incision was made and a 7 mm flat Samson drain placed in the extra-fascial space. The wound was closed in layers with interrupted 2-0 Vicryl including interrupted 3-0 Vicryl for the dermis rather than a running suture. This would allow for egress if necessary. Steri-Strips were applied as was a silver sponge dressing. The patient was ultimately extubated and transferred to recovery room in good condition having suffered no complications. Sponge, needle, and instrument counts reported as correct x3. Morelia Estrada MD /CARLOSL /[id number] Electronically Signed By: MORELIA ESTRADA MD 09/05/19 0830 PATIENT NAME: DYLAN ROMERO OPERATIVE REPORT DATE OF : 79 REPORT #: [id number] PHYSICIAN: MORELIA ESTRADA MD PCP: JONES DAVISON MD REPORT IS CONFIDENTIAL AND NOT TO BE RELEASED WITHOUT AUTHORIZATION [address] [address] Signed cc: MD Jones De La Rosa MD Copies: JONES WOO MD, ROBERT D DMD ~ Electronically Signed By: MORELIA ESTRADA MD 09/05/19 0830 PATIENT NAME: DYLAN ROMERO OPERATIVE REPORT DATE OF : 79 REPORT #: [id number] PHYSICIAN: MORELIA ESTRADA MD PCP: JONES DAVISON MD REPORT IS CONFIDENTIAL AND NOT TO BE RELEASED WITHOUT AUTHORIZATION
--- NOTE | 2019-09-05 08:45 | NUR ---
ANSWERED CALL LIGHT PT TEARFUL UPON ENTERING ROOM STATES "I'M HAVING A LOT OF PAIN." REGULAR AM MEDS ADMINISTERED AND PRN IV DILAUDID GIVEN. PT RATES PAIN 8/10 ABD. DENIES NAUSEA. BREAKFAST ORDERED. DRESSING TO MIDLINE ABD INTACT, VERY SCANT SPOT OF DRAINAGE AT TOP OF DRESSING. DIAMOND DRAIN IN PLACE JUST TO THE RIGHT OF DRESSING, DRESSED WITH GAUZE AND TAPE, PUTTING OUT SMALL AMOUNT OF LIGHT RED DRAINAGE. PT DEMONSTRATED PROPER DRAIN CARE AND SELF INJECTION OF LOVENOX. CALL LIGHT WITHIN REACH.
--- NOTE | 2019-09-05 09:14 | NUR ---
PATIENT SITTING UP IN BED. VITAL SIGNS AND I&O DONE. APPLE JUICE GIVEN. CALL LIGHT WITHIN REACH. NO OTHER NEEDS AT THIS TIME
--- NOTE | 2019-09-05 11:10 | NUR ---
PT LYING IN BED WATCHING TV. DENIES PAIN REPORTS THAT CHARGE NURSE WAS JUST IN ROOM TO ADMINISTER PAIN MEDICATION. CALL LIGHT WITHIN REACH.
--- NOTE | 2019-09-05 13:02 | NUR ---
ADMIN MAXALT 5MG PO AND DILAUDID 0.5MG IVP FOR REPORTS OF 8/10 ABD AND HEAD PAIN.
--- NOTE | 2019-09-05 13:09 | NUR ---
STEPPED INTO PTS' RM. SHE IS SITTING IN CHAIR, FRIENDLY, BUT SOMEWHAT SUBDUED INQUIRED HOW PT WAS DOING, SHE STATED THAT SHE REALLY WANTS TO DC, AND WHEN I ASKED ABOUT HER PAIN, SHE SAID IT WAS AT 8. TOLD HER I WOULD PASS ON TO HER RN AND SEE IF WE CAN HELP MORE, WHICH I DID. PT REQUESTED PRAYER, WILL FOLLOW NEEDED
--- NOTE | 2019-09-05 13:25 | NUR ---
PATIENT RESTING IN BED. VITAL SIGNS AND I&O DONE. CALL LIGHT WITHIN REACH. NO OTHER NEEDS AT THIS TIME
[2019-09-05] MEDS ORDERED: ENOXAPARIN40 MG/0.4 SUB-Q (14:08)
[2019-09-05] MEDS ORDERED: TYLENOL EXTRA500 MG PO (14:10)
--- NOTE | 2019-09-05 14:10 | NUR ---
PT SITTING UP IN RECLINER. ATE LUNCH AND BREAKFAST, YULI WELL. PT ANXIOUSLY AWAITING DC. HAS CALLED MULTIPLE TIMES ASKING WHEN THE DR. WILL BE IN TO SEE HER. PROVIDED REASSURANCE. CALL LIGHT WITHIN REACH.
--- NOTE | 2019-09-06 15:12 | DS ---
[facility] [address], [place] [address] Signed ADMISSION DATE: 09/03/2019 DISCHARGE DATE: 09/05/2019 REASON FOR ADMISSION: This 44-year-old morbidly obese white woman is admitted through the emergency room with abdominal wound, a large hematoma, and separation of skin edges with drainage of bloody fluid. The patient underwent abdominal wall reconstruction without implantation of mesh by Dr. Woo at [facility] approximately 2 weeks previously. She has numerous medical problems, dominantly including morbid obesity previously with a BMI of 89, now down to 58. She has undergone a gastric bypass operation. She had been chronically anticoagulated with Coumadin for a pulmonary embolism that originated in the right upper extremity deep venous thrombosis. Bridge therapy at [facility] included withdrawal of Coumadin for 2 days prior to operation and initiation of Lovenox. She was on Lovenox and Coumadin 2 days after operation, recently discontinued Lovenox and now on Coumadin alone. Her INR at presentation was noted to be 2.0. She noticed some swelling in the early postoperative period, but did not say much about it. Over the past 24 hours, she has had separation of some of the skin in the wound, egress of bloody fluid, and persistent oozing. Her evaluation in the emergency room by Dr. Grider showed probable hematoma and a CT scan was performed showing a large hematoma in the subcutaneous space directly over the abdominal wall reconstruction. There was no evidence of defect in the abdominal wall and the hernia repair was holding up. The patient in aggregate lost over 265 pounds in the past few years by various methods and most importantly by bariatric operation. She has now a reported weight of 265 pounds, at one time over 550 pounds. She was admitted for further evaluation and care on the basis of a very symptomatic draining incisional large hematoma. PERTINENT PHYSICAL EXAMINATION: GENERAL: Pleasant white woman, who did not look to be systemically toxic. VITAL SIGNS: Height 4 feet 10 inches, weight 124 kg, BMI 57.4. HEENT: Airway favorable, Mallampati class 2. NECK: Trachea midline. CHEST: Clear. HEART: Regular without murmur. ABDOMEN: Markedly obese. Scars from laparoscopic surgery in the past are noted. A midline incision above the umbilicus is swollen with areas of separation of the skin to a degree a tense hematoma is noted. There is no fluctuance or crepitance. Electronically Signed By: MORELIA ESTRADA MD 09/06/19 1512 PATIENT NAME: DYLAN ROMERO DISCHARGE SUMMARY DATE OF : 79 REPORT #: [id number] PHYSICIAN: MORELIA ESTRADA MD PCP: JONES DAVISON MD REPORT IS CONFIDENTIAL AND NOT TO BE RELEASED WITHOUT AUTHORIZATION [facility] [address] [place] [id number] Signed EXTREMITIES: The upper extremity and lower extremity examination shows no sign of swelling or DVT clinically. HOSPITAL COURSE: She was observed overnight with hopes that her INR would drift into a more reasonable range, but upon repeat examination, her INR was actually higher at 2.3. She subsequently underwent administration of some fresh frozen plasma allowing for operation on September 04, 2019, under general anesthetic. She had heparin as bridge therapy following initiation of her fresh frozen plasma administration. At operation, she was found to have a 600 mL clot of blood in the subcutaneous space overlying the hernia repair. There was no sign of fascial disruption or anything worrisome about the repair previously undertaken. There was no sign of active bleeding. Irrigation and debridement was undertaken and a drain was placed. Postoperatively, she had only drainage of dark thin old blood in the incision. She was maintained on Lovenox postoperatively. She is anticipated discharge home with the Lovenox 40 mg subcutaneously administered daily as prophylaxis regarding DVT recurrence, anticipating transition to Coumadin starting day #10 and likely fully anticoagulated at 14 days. An overlap of Lovenox with Coumadin would be anticipated for 4 days obviously. She is due to see Dr. Woo in a week she tells me. If he wishes and it is appropriate, the drain can be pulled at that time. Otherwise, I will see her in about 2 weeks for drain removal. She is certainly to avoid lifting heavier things certainly more than 10 pounds in her case. Abdominal binder would be impractical and probably of little benefit given her abdominal circumference. MEDICATIONS: Her discharge medications will include: 1. Lovenox 40 mg subcutaneously daily, #14. 2. Tylenol Extra Strength 1000 mg q.6 hours as needed for pain, #60. She will resume her usual medications includin. Whitlash Thyroid 30 mg p.o. daily. 2. Vitamin C 500 mg daily. 3. Citracal bone density tablet 1 p.o. daily. 4. Vitamin D2 2000 units daily. 5. Torsemide 100 mg tablets daily twice. 6. Spironolactone 50 mg p.o. daily. 7. Magnesium oxide 400 mg p.o. b.i.d. 8. Atenolol 50 mg p.o. q.h.s. Electronically Signed By: MORELIA ESTRADA MD 09/06/19 1512 PATIENT NAME: DYLAN ROMERO DISCHARGE SUMMARY DATE OF : 79 REPORT #: [id number] PHYSICIAN: MORELIA ESTRADA MD PCP: JONES DAVISON MD REPORT IS CONFIDENTIAL AND NOT TO BE RELEASED WITHOUT AUTHORIZATION [facility] [address], [place] [address] Signed 9. Paroxetine (Paxil) 40 mg p.o. h.s. 10. Mirapex 0.125 mg 2 tablets p.o. q.h.s. 11. Ferrous gluconate 325 mg p.o. daily. 12. Potassium chloride 20 mEq p.o. daily. 13. Alprazolam 1 mg p.o. t.i.d. as needed for anxiety. 14. Reglan 10 mg p.o. t.i.d. as needed for nausea. 15. Hydromorphone 2 mg tablets p.o. q.6 hours as needed for pain ([facility] [place] [place] 16. Chlorpromazine 25 mg p.o. h.s. as needed. 17. Rizatriptan mg as needed for migraine headache. 18. Coumadin 5 mg 2 tablets p.o. daily, starting in 10 days from discharge. 19. Latuda 40 mg p.o. h.s. 20. Multivitamin 1 p.o. daily. 21. Lactobacillus probiotic 1 p.o. daily. 22. Vitamin B12 1000 mcg p.o. daily. DISCHARGE DIAGNOSES: 1. Postoperative large hematoma of wound following incisional hernia repair (complex abdominal wall reconstruction, Dr. Woo at [facility] 2 weeks previously). 2. Morbid obesity. History of gastric bypass, now BMI 57, previously 89. 3. Anxiety disorder. 4. History of pulmonary embolism related to deep venous thrombosis of right upper extremity, on chronic anticoagulation. 5. Hypertension. FOLLOWUP: The patient will follow up with her primary care provider, who is now Dr. Jones Davison in [place], [place]. MD CARMEN Mccall/MODL /[id number] cc: Jones Davison MD Electronically Signed By: MORELIA ESTRADA MD 09/06/19 1512 PATIENT NAME: DYLAN ROMERO DISCHARGE SUMMARY DATE OF : 79 REPORT #: [id number] PHYSICIAN: MORELIA ESTRADA MD PCP: JONES DAVISON MD REPORT IS CONFIDENTIAL AND NOT TO BE RELEASED WITHOUT AUTHORIZATION [facility] [address], [place] [address] Signed MD Diana Story MD Robert Martindale, MD Copies: JONES DAVISON DMD, CYNTHIA MD PRIDGEN, KELLY DEAN MD MARTINDALE, ROBERT MD ~ Electronically Signed By: MORELIA ESTRADA MD 09/06/19 1512 PATIENT NAME: DYLAN ROMERO DISCHARGE SUMMARY DATE OF : 79 REPORT #: [id number] PHYSICIAN: MORELIA ESTRADA MD PCP: JONES DAVISON MD REPORT IS CONFIDENTIAL AND NOT TO BE RELEASED WITHOUT AUTHORIZATION
== END 2019-09-05 15:17 | disposition home or self-care (01) | DRG 920 ==
LOC: ED 21:22 → MS 21:23
PROVIDERS: ADMIT Surgery
PROC: 30233L1 Transfusion of Nonautologous Fresh Plasma into Peripheral Vein, Percutaneous Approach (ICD-10-PCS; 2019-09-03)
PROC: 30233K1 Transfusion of Nonautologous Frozen Plasma into Peripheral Vein, Percutaneous Approach (ICD-10-PCS; 2019-09-03)
PROC: 0JC80ZZ Extirpation of Matter from Abdomen Subcutaneous Tissue and Fascia, Open Approach (ICD-10-PCS; principal; 2019-09-04 11:30)
DX: L76.32 Postprocedural hematoma of skin and subcutaneous tissue following other procedure (principal); D62 Acute posthemorrhagic anemia; Z68.43 Body mass index [BMI] 50.0-59.9, adult; E87.6 Hypokalemia; F31.9 Bipolar disorder, unspecified; G47.33 Obstructive sleep apnea (adult) (pediatric); G89.29 Other chronic pain; I10 Essential (primary) hypertension; F41.9 Anxiety disorder, unspecified; G43.909 Migraine, unspecified, not intractable, without status migrainosus; E66.01 Morbid (severe) obesity due to excess calories; Z98.84 Bariatric surgery status; Z86.73 Personal history of transient ischemic attack (TIA), and cerebral infarction without residual deficits; Z86.718 Personal history of other venous thrombosis and embolism; Z86.711 Personal history of pulmonary embolism; Z79.01 Long term (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; Z79.891 Long term (current) use of opiate analgesic; Z79.899 Other long term (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; Z88.0 Allergy status to penicillin; Z88.8 Allergy status to other drugs, medicaments and biological substances
CPT/HCPCS: 36415; 74177; 80048; 80053; 83735; 85025; 85610; 85730; 86850; 86900; 86901; 86927; 96374; 96376; 99285-25; A9270; G0378; J0131; J0330; J0690; J1100; J1170; J1644; J1650; J1885; J2250; J2405; J2704; J2765; J3010; J3480; J7120; J7121; Q0161; Q9967

== ENCOUNTER 2019-09-08 18:54 | Emergency (ER) | payer OTHER ==
[~2019-09-08] VITALS: Ht 147.3 cm; Wt 124.5 kg
[~2019-09-08 18:54] MED LIST changes: +B-121000 MC2 PO; +CHLORPROMAZINE25 MG PO; +ENOXAPARIN40 MG/0.4 SUB-Q; +HYDROMORPHONE HC2 MG PO; +LATUDA40 MG PO; +MULTI VITAMIN1 EACH PO; +PROBIOTIC1 EAC2 PO; +RIZATRIPTAN5 M1 PO; +SPIRONOLACTONE50 MG PO; +TOPIRAMATE50 MG PO; +TORSEMIDE100 MG PO; +TYLENOL EXTRA500 MG PO; +VITAMIN D250 MCG PO; +WARFARIN SODIUM5 MG
--- OUTSIDE RECORDS SUMMARY | 2019-09-08 18:56 | XMS ---
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 No recent Security Events currently on file CRITERIA MET - Group Notification - 6 ED Visits in 6 Months - [facility] - Has Care Guidelines - PDMP - [facility] - 2 Visits in 30 Days CARE PROVIDERS [facility] Community Health Worker 07/03/2019-Current PHONE: [phone] JONES DAVISON Dentist: Financial Recruiter 05/23/2019-Current PHONE: [phone] Rob Tilley Client Services Associate/[employer] Fash[employer] Designer 03/27/2018-Current PHONE: [phone] Bernard Hylton Internal Medicine: Pulmonary Disease 08/23/2018-Current PHONE: Unknown LOUIE HYLTON Primary Care Current PHONE: Unknown Rob Tilley Primary Care 03/27/2018-Current PHONE: [phone] Guidelines Source: [facility] [place] Guidelines Date: 12/06/2018 Care Coordination: Receiving mental health services with [facility].\T\nbsp; Please contact [facility] for mental health concerns.\T\nbsp; [place]: [phone]\T\ nbsp; [place]: [phone].\T\nbsp; Care History Medical/Surgical 06/27/2019 [facility] - PATIENT SELF DISCHARGED FROM [facility]-PCP IS NOW DR DAVISON AT [facility]. 06/27/2019 [facility] - PATIENT HAS AN APT WITH DR DAVISON ON 06/28/19 FOR FOLLOW UP AND ANOTHER APT WITH PCP FOR ER FOLLOW UP ON 07/06/19. - PLEASE REFER PATIENT TO THE WALK IN CLINIC FOR NON EMERGENT MEDICAL CONCERNS. 05/24/2019 [facility] - PATIENT HAS AN APT ON 06/16/[address] LIBBY. [place] VISIT COUNT (12 MO.) 1 [facility] 2 [facility] 8 [facility] TOTAL 11 NOTE: Visits indicate total known visits. ED/UCC VISIT TRACKING (12 MO.) 09/08/2019 18:55 [facility] TYPE: Emergency COMPLAINT: - DIFFICULTY BREATHING 09/02/2019 21:22 [facility] TYPE: Emergency COMPLAINT: - ABDOMINAL PAIN 08/18/2019 13:47 [facility] TYPE: Emergency DIAGNOSES: [address]. [facility] [address]. Morbid (severe) obesity due to excess calories . Ventral hernia without obstruction or gangrene . 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 - Allergy status to penicillin - Obesity, unspecified 06/19/2019 06:34 [facility] TYPE: Emergency COMPLAINT: - ABDOMINAL PAIN/VOMITING DIAGNOSES: - halfway (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 - Prsnl hx [...] to oth drug/meds/biol subst status - Other terminal press 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 (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 06/01/2019 13:10 [facility] TYPE: Emergency COMPLAINT: - HEADACHE/VISION ISSUES DIAGNOSES: - Allergy status to penicillin - Anxiety disorder, unspecified - Obesity, unspecified - Migraine, unsp, not intractable, without status migrainosus - Other nursing home (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 - Allergy status to oth drug/meds/biol subst status - halfway (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 - Headache - terminal press operator (current) use of aspirin 05/23/2019 17:08 [facility] TYPE: Emergency COMPLAINT: - BLOOD CLOT IN ARM DIAGNOSES: - Anxiety disorder, unspecified - Acute embolism and thrombosis of deep veins of r up extrem - Allergy status to penicillin - Other terminal press operator (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 - Pain in right arm - terminal press operator (current) use of aspirin - Allergy status to oth drug/meds/biol subst status 05/20/2019 10:19 [facility] TYPE: Emergency COMPLAINT: - ABD PAIN, VOMITING DIAGNOSES: - Generalized abdominal pain - terminal press operator (current) use of aspirin - Allergy status to oth drug/meds/biol subst status - Unspecified abdominal pain - Prsnl hx of TIA (TIA), and cereb infrc w/o resid deficits - Anxiety disorder, unspecified - Other terminal press operator (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 - Other chronic pain - Allergy status to penicillin 05/13/2019 17:18 [facility] TYPE: Emergency DIAGNOSES: 55205. A303 01539. Bariatric surgery status 16740. Ventral hernia without obstruction or gangrene 72557. Nausea with vomiting, unspecified 12674. Unspecified abdominal pain 17994. Nonspecific mesenteric lymphadenitis 05/10/2019 13:06 [facility] TYPE: Emergency COMPLAINT: - ABD PAIN DIAGNOSES: - Nausea with vomiting, unspecified - Allergy status to oth drug/meds/biol subst status - Prsnl hx of TIA (TIA), and cereb infrc w/o resid deficits - Solitary pulmonary nodule - Other terminal press operator (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 - Anxiety disorder, unspecified - Allergy status to penicillin - Ventral hernia without obstruction or gangrene - halfway (current) use of aspirin - Unspecified abdominal pain - Diarrhea, unspecified 12/03/2018 11:51 [facility] [place] TYPE: Emergency DIAGNOSES: - Strain of unsp musc/tend at lower leg level, right leg, init - RIGHT LEG PAIN DUE TO FALL INPATIENT VISIT TRACKING (12 MO.) 09/03/2019 02:24 [facility] TYPE: Medical Surgical COMPLAINT: - POST-OP HEMATOMA DIAGNOSES: - Body mass index (BMI) 50.0-59.9, adult - Personal history of pulmonary embolism - halfway (current) use of opiate analgesic - Other chronic pain - Allergy status to oth drug/meds/biol subst status - Anxiety disorder, unspecified - Allergy status to oth drug/meds/biol subst status - terminal press operator (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 - Bipolar disorder, unspecified - Personal history of other venous thrombosis and embolism - Anxiety disorder, unspecified - Other chronic pain - Other nursing home (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 - Postproc hematoma of a dgstv sys org fol a dgstv sys proc - Other terminal press operator (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 - Personal history of other venous thrombosis and embolism - Bariatric surgery status - Essential (primary) hypertension - Prsnl hx of TIA (TIA), and cereb infrc w/o resid deficits - Obstructive sleep apnea (adult) (pediatric) - Personal history of pulmonary embolism - Migraine, unsp, not intractable, without status migrainosus - Bipolar disorder, unspecified - terminal press operator (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 - Acute posthemorrhagic anemia - Postproc hematoma of skin, subcu following other procedure - Acute posthemorrhagic anemia - Obstructive sleep apnea (adult) (pediatric) - Migraine, unsp, not intractable, without status migrainosus - Allergy status to penicillin - Body mass index (BMI) 50.0-59.9, adult - Allergy status to penicillin - Prsnl hx of TIA (TIA), and cereb infrc w/o resid deficits - Morbid (severe) obesity due to excess calories - Essential (primary) hypertension - Postproc hematoma of skin, subcu following other procedure - Morbid (severe) obesity due to excess calories - terminal press operator (current) use of opiate analgesic - Bariatric surgery status - Hypokalemia - Hypokalemia 08/18/2019 13:47 [facility] TYPE: Surgery DIAGNOSES: . Unsp abdominal hernia with obstruction, without gangrene . Morbid (severe) obesity due to excess calories . Ventral hernia without obstruction or gangrene [email or web address]
--- NOTE | 2019-09-09 17:09 | EKG ---
[facility] [address] [facility] [place], [place] [address] Signed Sinus tachycardia Septal infarct (cited on or before 01-JUN-2019) Abnormal ECG When compared with ECG of 01-JUN-2019 13:18, Vent. rate has increased BY 34 BPM Questionable change in initial forces of Anterior leads Confirmed by MARU FITZGERALD MD ([id number]) on 09/09/2019 5:09:28 PM Electronically Signed By: MARU FITZGERALD MD 09/09/19 1709 PATIENT NAME: DYLAN ROMERO Electrocardiogram DATE OF : 79 PHYSICIAN: MARU FITZGERALD MD REPORT #: [id number] REPORT IS CONFIDENTIAL AND NOT TO BE RELEASED WITHOUT AUTHORIZATION
== END 2019-09-08 23:10 | disposition home or self-care (01) ==
LOC: ED 18:54
DX: R06.02 Shortness of breath (principal); R51 Headache; Z87.891 Personal history of nicotine dependence; Z79.899 Other long term (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
CPT/HCPCS: 71260; 80053; 81001; 83735; 84484; 85025; 85379; 85610; 93005; 93010; 96361; 96374; 96375; 96376; 99285-25; J1170; J2550; J7030

== ENCOUNTER 2019-09-12 17:57 | Emergency (ER) | payer OTHER ==
[~2019-09-12] VITALS: Ht 147.3 cm; Wt 115.2 kg
--- OUTSIDE RECORDS SUMMARY | 2019-09-13 06:28 | XMS ---
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 ROMERO Security Manager E Learning Events No recent Security Events currently on file CRITERIA MET - PDMP CARE PROVIDERS [facility] Community Health Worker 07/03/2019-Current PHONE: [phone] JONES DAVISON Dentist: Sieve Repairer 05/23/2019-Current PHONE: [phone] Rob Tilley Picking Machine Operator/Producer 03/27/2018-Current PHONE: [phone] Bernard Hylton Internal Medicine: Pulmonary Disease 08/23/2018-Current PHONE: Unknown LOUIE HYLTON Primary Care Current PHONE: Unknown Rob Tilley Primary Care 03/27/2018-Current PHONE: [phone] Guidelines Source: [facility] Guidelines Date: 12/06/2018 Care Coordination: Receiving mental health services with [facility].\T\nbsp; Please contact [facility] for mental health concerns.\T\nbsp; [place]: [phone]\T\ nbsp; [place]: [phone].\T\nbsp; Care History Medical/Surgical 06/27/2019 [facility] - PATIENT SELF DISCHARGED FROM [facility]-PCP IS NOW DR DAVISON AT [facility]. 06/27/2019 [facility] - PATIENT HAS AN APT WITH DR DAVISON ON 06/28/19 FOR FOLLOW UP AND ANOTHER APT WITH PCP FOR ER FOLLOW UP ON 07/06/19. - PLEASE REFER PATIENT TO THE WALK IN CLINIC FOR NON EMERGENT MEDICAL CONCERNS. 05/24/2019 [facility] - PATIENT HAS AN APT ON 06/16/[address] HYLTON. E.DRenee VISIT COUNT (12 MO.) 1 [facility] 2 [facility] [address] [facility] TOTAL 12 NOTE: Visits indicate total known visits. ED/UCC VISIT TRACKING (12 MO.) 09/12/2019 17:58 [facility] TYPE: Emergency COMPLAINT: - POST OP PAIN 09/08/2019 18:55 [facility] TYPE: Emergency COMPLAINT: - DIFFICULTY BREATHING DIAGNOSES: - Headache - Other long wall mining machine tender (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 - Personal history of nicotine dependence - Shortness of breath 09/02/2019 21:22 [facility] TYPE: Emergency COMPLAINT: - ABDOMINAL PAIN 08/18/2019 13:47 [facility] TYPE: Emergency DIAGNOSES: [address]. [facility] [address]. Morbid (severe) obesity due to excess calories 59580. Ventral hernia without obstruction or gangrene 40868. Unsp abdominal hernia with obstruction, without gangrene 06/25/2019 18:23 [facility] TYPE: Emergency COMPLAINT: - ABDOMINAL PAINY DIAGNOSES: - emt intermediate (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 - Anxiety disorder, unspecified - Cellulitis of abdominal wall - Acute embolism and thrombosis of deep veins of r up extrem - Nicotine dependence, unspecified, uncomplicated - Migraine, unsp, not intractable, without status migrainosus - Unspecified abdominal pain - Allergy status to oth drug/meds/biol subst status - Other long wall mining machine tender (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 - Allergy status to penicillin - Obesity, unspecified 06/19/2019 06:34 [facility] TYPE: Emergency COMPLAINT: - ABDOMINAL PAIN/VOMITING DIAGNOSES: - emt intermediate (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 - Prsnl [...] to oth drug/meds/biol subst status - Other long wall mining machine tender (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 06/01/2019 13:10 [facility] TYPE: Emergency COMPLAINT: - HEADACHE/VISION ISSUES DIAGNOSES: - Allergy status to penicillin - Anxiety disorder, unspecified - Obesity, unspecified - Migraine, unsp, not intractable, without status migrainosus - Other long wall mining machine tender (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 - Allergy status to oth drug/meds/biol subst status - residential (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 - Headache - emt intermediate (current) use of aspirin 05/23/2019 17:08 [facility] TYPE: Emergency COMPLAINT: - BLOOD CLOT IN ARM DIAGNOSES: - Anxiety disorder, unspecified - Acute embolism and thrombosis of deep veins of r up extrem - Allergy status to penicillin - Other [facility] (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 - Pain in right [...] deficits - Anxiety disorder, unspecified - Other long wall mining machine tender (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 - Other chronic pain - Allergy status to penicillin 05/13/2019 17:18 [facility] TYPE: Emergency DIAGNOSES: 01670. A303 09506. Bariatric surgery status 59723. Ventral hernia without obstruction or gangrene 46365. Nausea with vomiting, unspecified 51024. Unspecified abdominal pain 07779. Nonspecific mesenteric lymphadenitis 05/10/2019 13:06 [facility] [...] Ventral hernia without obstruction or gangrene - residential (current) use of aspirin - Unspecified abdominal pain - Diarrhea, unspecified 12/03/2018 11:51 [facility] [place] TYPE: Emergency DIAGNOSES: - Strain of unsp musc/tend at lower leg level, right leg, init - RIGHT LEG PAIN DUE TO FALL INPATIENT VISIT TRACKING (12 MO.) 09/03/2019 02:24 [facility] TYPE: Medical Surgical COMPLAINT: - POST-OP HEMATOMA DIAGNOSES: - Body mass index (BMI) 50.0-59.9, adult - Personal history of pulmonary embolism - emt intermediate (current) use of opiate analgesic - Other chronic pain - Allergy status to oth drug/meds/biol subst status - Anxiety disorder, unspecified - Allergy status to oth drug/meds/biol subst status - residential (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 - Bipolar disorder, unspecified - Personal history of other venous thrombosis and embolism - Anxiety disorder, unspecified - Other chronic pain - Other [facility] (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 - Postproc hematoma of a dgstv sys org fol a dgstv sys proc - Other long wall mining machine tender (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 - Personal history of other venous thrombosis and embolism - Bariatric surgery status - Essential (primary) hypertension - Prsnl hx of TIA (TIA), and cereb infrc w/o resid deficits - Obstructive sleep apnea (adult) (pediatric) - Personal history of pulmonary embolism - Migraine, unsp, not intractable, without status migrainosus - Bipolar disorder, unspecified - residential (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 - Acute posthemorrhagic [...] (severe) obesity due to excess calories - emt intermediate (current) use of opiate analgesic - Bariatric surgery status - Hypokalemia - Hypokalemia 08/18/2019 13:47 [facility] TYPE: Surgery DIAGNOSES: . Unsp abdominal hernia with obstruction, without gangrene . Morbid (severe) obesity due to excess calories . Ventral hernia without obstruction or gangrene [email or web address]
== END 2019-09-12 20:28 | disposition home or self-care (01) ==
LOC: ED 17:57
DX: L76.82 Other postprocedural complications of skin and subcutaneous tissue (principal); E66.9 Obesity, unspecified; F41.9 Anxiety disorder, unspecified; Z88.8 Allergy status to other drugs, medicaments and biological substances; Z88.0 Allergy status to penicillin; Z88.6 Allergy status to analgesic agent; Z79.899 Other long term (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
CPT/HCPCS: 80053; 85025; 96361; 96374; 96375; 99284-25; J0780; J1170; J2270; J7030

== ENCOUNTER 2019-11-13 17:32 | Emergency (ER) | payer OTHER ==
[~2019-11-13] VITALS: Ht 147.3 cm; Wt 122.5 kg
[~2019-11-13 17:32] MED LIST changes: +PERCOCET 10-321 EACH PO; +PERCOCET 5-3251 EACH PO; +PHENTERMINE H37.5 M1 PO
--- OUTSIDE RECORDS SUMMARY | 2019-11-13 17:36 | XMS ---
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 ROMERO Security Industrial Gas Service Helper Events No recent Security Events currently on file CRITERIA MET - Group Notification - 6 ED Visits in 6 Months - [facility] - Has Care Guidelines - PDMP CARE PROVIDERS Eagle Nino Community Health Worker 07/03/2019-Current PHONE: [phone] JONES DAVISON Dentist: Personal Computer Specialist 05/23/2019-Current PHONE: [phone] Rob Tilley Rn Clinical Resource/Padded Box Sewer 03/27/2018-Current PHONE: [phone] CONCETTA PUTON Internal Medicine: Pulmonary Disease 08/23/2018-Current PHONE: Unknown Guidelines [facility] Guidelines Date: 09/16/2019 Care Coordination: Receives mental health services with [facility].\T\nbsp; Please contact [facility] regarding mental health concerns. [facility] Office: , [place] Office: [phone].\T\nbsp; [facility] Crisis: [phone]. Care History Medical/Surgical 09/14/2019 [facility] - PATIENT HAS AN APT WITH DR WEBBER 09/14/19 FOR FOLLOW UP TO RECENT POSTOPERATIVE COMPLICATION. - HERNIA SURGERY WAS DONE ON 08/19/[address] TIWARI AT [facility]. 06/27/2019 [facility] - PATIENT SELF DISCHARGED FROM [facility]-PCP IS NOW DR DAVISON AT [facility]. 06/27/2019 [facility] - PATIENT HAS AN APT WITH DR DAVISON ON 06/28/19 FOR FOLLOW UP AND ANOTHER APT WITH PCP FOR ER FOLLOW UP ON 07/06/19. - PLEASE REFER PATIENT TO THE WALK IN CLINIC FOR NON EMERGENT MEDICAL CONCERNS. E.D. VISIT COUNT (12 MO.) [facility] 2 [facility] and [facility] 10 [facility]. TOTAL 13 NOTE: Visits indicate total known visits. ED/UCC VISIT TRACKING (12 MO.) 11/13/2019 17:33 [facility] TYPE: Emergency COMPLAINT: - MULTIPLE COMPLAINTS 09/12/2019 17:58 [facility] TYPE: Emergency COMPLAINT: - POST OP PAIN DIAGNOSES: - Allergy status to analgesic agent status - Unspecified abdominal pain - Allergy status to penicillin - Other exterminator helper termite (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 - Anxiety disorder, unspecified - Obesity, unspecified - Other postprocedural complications of skin and subcutaneous t - Allergy status to other drugs, medicaments and biological sub 09/08/2019 18:55 [facility] TYPE: Emergency COMPLAINT: - DIFFICULTY BREATHING DIAGNOSES: - Headache - Other exterminator helper termite (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 - Personal history of nicotine dependence - Shortness of breath 09/02/2019 21:22 [facility] TYPE: Emergency COMPLAINT: - ABDOMINAL PAIN 08/18/2019 13:47 [facility] TYPE: Emergency DIAGNOSES: 84[address]. [employer] [address]. Morbid (severe) obesity due to excess calories . Ventral hernia without obstruction or gangrene . Unspecified abdominal hernia with obstruction, without gangre 06/25/2019 18:23 [facility] TYPE: Emergency COMPLAINT: - ABDOMINAL PAINY DIAGNOSES: - senior living (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 - Anxiety disorder, unspecified - Cellulitis of abdominal wall - Acute embolism and thrombosis of deep veins of right upper ex - Nicotine dependence, unspecified, uncomplicated - Migraine, unspecified, not intractable, without status migrai - Unspecified abdominal pain - Allergy status to other drugs, medicaments and biological sub - Other care home (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 - Allergy status to penicillin - Obesity, unspecified 06/19/2019 06:34 [facility] TYPE: Emergency COMPLAINT: - ABDOMINAL PAIN/VOMITING DIAGNOSES: - termite exterminator helper (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 - Personal history of transient ischemic attack (TIA), and cere - Anxiety disorder, unspecified - Obesity, unspecified - Personal history of urinary (tract) infections - Unspecified abdominal hernia without obstruction or gangrene - Allergy status to other antibiotic agents status - Unspecified abdominal pain - Allergy status to penicillin - Nausea with vomiting, unspecified - Allergy status to other drugs, medicaments and biological sub - Other exterminator helper termite (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 06/01/2019 13:10 [facility] TYPE: Emergency COMPLAINT: - HEADACHE/VISION ISSUES DIAGNOSES: - Allergy status to penicillin - Anxiety disorder, unspecified - Obesity, unspecified - Migraine, unspecified, not intractable, without status migrai - Other care home (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 - Allergy status to other drugs, medicaments and biological sub - senior living (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 - Headache - senior living (current) use of aspirin 05/23/2019 17:08 [facility] TYPE: Emergency COMPLAINT: - BLOOD CLOT IN ARM DIAGNOSES: - Anxiety disorder, unspecified - Acute embolism and thrombosis of deep veins of right upper ex - Allergy status to penicillin - Other exterminator helper termite (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 - Pain in right arm - senior living (current) use of aspirin - Allergy status to other drugs, medicaments and biological sub 05/20/2019 10:19 [facility] TYPE: Emergency COMPLAINT: - ABD PAIN, VOMITING DIAGNOSES: - Generalized abdominal pain - termite exterminator helper (current) use of aspirin - Allergy status to other drugs, medicaments and biological sub - Unspecified abdominal pain - Personal history of transient ischemic attack (TIA), and cere - Anxiety disorder, unspecified - Other exterminator helper termite (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 - Other chronic pain - Allergy status to penicillin 05/13/2019 17:18 [facility] TYPE: Emergency DIAGNOSES: 88667. A303 31881. Bariatric surgery status 11039. Ventral hernia without obstruction or gangrene 81876. Nausea with vomiting, unspecified 11713. Unspecified abdominal pain 41383. Nonspecific mesenteric lymphadenitis 05/10/2019 13:06 [facility] TYPE: Emergency COMPLAINT: - ABD PAIN DIAGNOSES: - Nausea with vomiting, unspecified - Allergy status to other drugs, medicaments and biological sub - Personal history of transient ischemic attack (TIA), and cere - Solitary pulmonary nodule - Other care home (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 - Anxiety disorder, unspecified - Allergy status to penicillin - Ventral hernia without obstruction or gangrene - termite exterminator helper (current) use of aspirin - Unspecified abdominal pain - Diarrhea, unspecified 12/03/2018 11:51 [facility] [place] TYPE: Emergency DIAGNOSES: - Strain of unspecified muscle(s) and tendon(s) at lower leg le - RIGHT LEG PAIN DUE TO FALL INPATIENT VISIT TRACKING (12 MO.) 09/03/2019 02:24 [facility] TYPE: Medical Surgical COMPLAINT: - POST-OP HEMATOMA DIAGNOSES: - Body mass index (BMI) 50-59.9 , adult - Personal history of pulmonary embolism - termite exterminator helper (current) use of opiate analgesic - Other chronic pain - Allergy status to other drugs, medicaments and biological sub - Anxiety disorder, unspecified - Allergy status to other drugs, medicaments and biological sub - termite exterminator helper (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 - Bipolar disorder, unspecified - Personal history of other venous thrombosis and embolism - Anxiety disorder, unspecified - Other chronic pain - Other care home (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 - Postprocedural hematoma of a digestive system organ or struct - Other care home (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 - Personal history of other venous thrombosis and embolism - Bariatric surgery status - Essential (primary) hypertension - Personal history of transient ischemic attack (TIA), and cere - Obstructive sleep apnea (adult) (pediatric) - Personal history of pulmonary embolism - Migraine, unspecified, not intractable, without status migrai - Bipolar disorder, unspecified - senior living (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 - Acute posthemorrhagic anemia - Postprocedural hematoma of skin and subcutaneous tissue follo - Acute posthemorrhagic anemia - Obstructive sleep apnea (adult) (pediatric) - Migraine, unspecified, not intractable, without status migrai - Allergy status to penicillin - Body mass index (BMI) 50-59.9 , adult - Allergy status to penicillin - Personal history of transient ischemic attack (TIA), and cere - Morbid (severe) obesity due to excess calories - Essential (primary) hypertension - Postprocedural hematoma of skin and subcutaneous tissue follo - Morbid (severe) obesity due to excess calories - termite exterminator helper (current) use of opiate analgesic - Bariatric surgery status - Hypokalemia - Hypokalemia 08/18/2019 13:47 [facility] TYPE: Surgery DIAGNOSES: . Unspecified abdominal hernia with obstruction, without gangre . Morbid (severe) obesity due to excess calories . Ventral hernia without obstruction or gangrene [email or web address]
--- NOTE | 2019-11-14 18:10 | EKG ---
[facility] [address] [place], [place] [address] Signed Normal sinus rhythm with sinus arrhythmia Possible Anterior infarct (cited on or before 01-JUN-2019) Abnormal ECG When compared with ECG of 08-SEP-2019 19:04, Questionable change in initial forces of Anterior leads Confirmed by DUGLAS ALTMAN MD ([id number]) on 11/14/2019 6:10:21 PM Electronically Signed By: DUGLAS ALTMAN MD 11/14/19 1810 PATIENT NAME: DYLAN ROMERO Electrocardiogram DATE OF : 79 PHYSICIAN: DUGLAS ALTMAN MD REPORT #: [id number] REPORT IS CONFIDENTIAL AND NOT TO BE RELEASED WITHOUT AUTHORIZATION
== END 2019-11-13 20:41 | disposition home or self-care (01) ==
LOC: ED 17:32
DX: B34.9 Viral infection, unspecified (principal); G43.909 Migraine, unspecified, not intractable, without status migrainosus; F41.9 Anxiety disorder, unspecified; Z88.0 Allergy status to penicillin; Z88.1 Allergy status to other antibiotic agents; Z79.899 Other long term (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
CPT/HCPCS: 71045; 80053; 83735; 84484; 85025; 85610; 93005; 93010; 96374; 99284-25; J2765; J7030

== ENCOUNTER 2019-12-02 12:01 | Emergency (ER) | payer OTHER ==
[~2019-12-02] VITALS: Ht 147.3 cm; Wt 122.5 kg
--- OUTSIDE RECORDS SUMMARY | ~2019-12-02 | XMS | Encounter Summary ---
Demographics + + + | Address | [address] | | | [place] [address] | + + + | Home Phone | | + + + | Preferred Language | Unknown | + + + | Marital Status | Single | + + + | Quaker Affiliation | NON | + + + [...] + | Katalina Padilla | ECON | [address] | | | | | [place], [place] | | | | | [address] | | + + + + + | Ellie Vang | ECON | Unknown | | + + + + + Care Team Providers + +------+ + | Care Clinical Researcher Name | Role | Phone | + +------+ + | Fadi Goodrich DO | PCP | | + +------+ + Reason for Referral Diagnostic Testing (Urgent) +--------+--------+ + + + + | Status | Reason | Specialty | Diagnoses / | Referred By | Referred To | | | | | Procedures | Contact | Contact | +--------+--------+ + + + + | Closed | | Radiology | Diagnoses | Gs General | Rad Ct Scan | | | | | Hernia | Surg [facility] | [facility] [address] | | | | | Procedures | [address] | [address] | | | | | CT ABDOMEN & | Ave | Lesly Gutiérrez [facility] | | | | | PELVIS W IV | Mailcode: | Hospital, | | | | | CONTRAST | Center for | 10th Floor | | | | | | [facility] and | [place], [place] | | | | | | Healing, | [address] | | | | | | Building 2 | Phone: | | | | | | [place], [place] | [phone] | | | | | | [address] | Fax: | | | | | | Phone: | [phone] | | | | | | [phone] | | | | | | | Fax: | | | | | | | [phone] | | +--------+--------+ + + + + Reason for Visit + + + | Reason | Comments | + + + | New Patient Visit | | + + + Consultation (Routine) +--------+--------+ + + + + | Status | Reason | Specialty | Diagnoses / | Referred By | Referred To | | | | | Procedures | Contact | Contact | +--------+--------+ + + + + | Closed | | Surgery | Diagnoses | Kahlil, | Snehal, | | | | | Incisional | Dino Melendez MD | MD Hernandez | | | | | hernia | [place] | [address] | | | | | without | SURGICAL | [facility] | | | | | mention of | CLINIC [address] [place], | | | | | obstruction | [address] [place] | [place] | | | | | or gangrene | AVE | [address] | | | | | | [place], | Phone: | | | | | | [place] [address] | [phone] | | | | | | Phone: | Fax: | | | | | | [phone] | [phone] | | | | | | Fax: | | | | | | | [phone] | | +--------+--------+ + + + + Encounter Details +--------+---------+ + + + | Date | Type | Department | Care Team | Description | +--------+---------+ + + + | 10/07/ | Office | Digestive Health | Hernandez Brian, | Hernia (Primary Dx) | | 2012 | Visit | Center at [facility] [address] | [address] | | | | | [address] | [facility] | | | | | Mailcode: Center | [place], [place] | | | | | [facility] and | [address] | | | | | [facility] 2 | [phone] | | | | | [place], [place] | | | | | | [address] | | | | | | [phone] | | | +--------+---------+ + + + [...] + + + | Blood Pressure | 150/95 | 10/07/2012 12:12 PM | | | | | PDT | | + + + + + | Pulse | 103 | 10/07/2012 12:12 PM | | | | | PDT | | + + + + + | Temperature | 36.2 C (97.2 F) | 10/07/2012 12:12 PM | | | | | PDT | | + + + + + | Respiratory Rate | 22 | 10/07/2012 12:12 PM | | | | | PDT | | + + + + + | Oxygen Saturation | - | - | | + + + + + | Inhaled Oxygen | - | - | | | Concentration | | | | + + + + + | Weight | 195.5 kg (431 lb) | 10/07/2012 12:12 PM | | | | | PDT | | + + + + + | Height | 154.9 cm (5' 1") | 10/07/2012 12:12 PM | | | | | PDT | | + + + + + | Body Mass Index | 81.44 | 10/07/2012 12:12 PM | | | | | PDT | | + + + + + documented in this encounter Progress Notes Howie Faria MD - 10/07/2012 12:30 PM PDTFormatting of this note might be different fro m the original. SURGERY HISTORY AND PHYSICAL Attending Physician: Levi Brian MD Author: Howie Faria MD; MIS/Bariatric Fellow CC: r/o incisional hernia HPI: Elzbieta Cristina is a 37 y.o. female who is morbidly obese (BMI 81, 431#) and has had a few surgeries, including open appendectomy in 2010 and concomitant umbilical hernia repair (primary closure with PDS) which was "softball sized", subsequent staph wound infection req uiring I&D x2, and now had recurrent infections that "opens and closes" on is own. No other abdominal surgeries. She had a transverse incision through the umbilical region and now had constant pain and swelling to the supraumbilical region. She is nauseous every time she eats starting about 2 months ago at which time her PCP placed her on antibiotics in case this wa s diverticulitis (known diverticulosis from colonoscopy), but a referral to [place] [facility] [place] mentioned this was probably an incisional hernia. No fevers, (+)chills, (+)nausea, (+)vomi ting, wt loss (80# in last 2 years), no blood per rectum, (+)constipation (now on stool soft eners). PAST MEDICAL HISTORY: Past Medical History Diagnosis Date Neck pain Insomnia Allergic rhinitis Hypertension Lymphedema Esophageal reflux Diverticulitis of colon Hemorrhoids UTI (urinary tract infection) Diabetes mellitus type 1 Tinea corporis Osteoarthritis of knee Migraine headache TIA (transient ischemic attack) due to Bromocriptine Myalgia and myositis Bipolar disorder Depression Sleep apnea Staphylococcal infection Anemia Chronic wound infection of abdomen from 2010 Morbid obesity with body mass index of 70 and over in adult Incisional hernia, incarcerated 2012 PAST SURGICAL HISTORY: Past Surgical History Procedure Date Tonsillectomy and adenoidectomy Appendectomy, open 2010 Umbilical hernia repair 2010 Treatment of ankle fracture with screws remaining Incision and drainage of wound abscess x2 midline transverse wound s/p open appendectomy 2010 CURRENT MEDICATIONS: Pt to populate list ALLERGIES: Allergies Allergen Reactions Amoxicillin Benadrilina (Diphenhydramine Hcl) SOCIAL HISTORY: History Social History Marital Status: Single Spouse Name: N/A Number of Children: N/A Years of Education: N/A Occupational History Not on file. Social History Main Topics Smoking status: Never Smoker Smokeless tobacco: Not on file Alcohol Use: No Drug Use: No Sexually Active: Not on file Other Topics Concern Not on file Social History Narrative She, her daughter, and grandchildren live in a duplex above her mother. FAMILY HISTORY: Family History Problem Relation Alcohol/Drug Alcoholism in mother & father Hypertension M&F Asthma Father, brother, daughters Lung Disease Father Obesity M&F Diabetes Mother Arthritis M&F REVIEW OF SYSTEMS: Gen - Negative for fevers, (+)chills, weight loss HEENT- Negative for changes in vision, hearing, sore throat CV - Negative for chest pain, arhythmia Pulm - Negative for dyspnea, (+)YO, (-)SOB GI - See HPI - Negative for dysuria, urgency. H/o UTI Heme/Lymph - Negative for bleeding disorders, (+)lymphedema. Derm - Negative for erythema, skin lesions Endo - Negative for (+)history of diabetes; no heat or cold intolerance Psych - Negative for (+)depression, anxiety PHYSICAL EXAM: Vital signs: Ht 154.9 cm (5' 1")( < 3 %ile), Wt 195.5 kg (431 lbs)( < 3 %ile), BP 150/95, P ulse 103, Temperature 36.2 C (97.2 F), Temperature source Oral, RR 22, BMI 81.44 kg/(m^2 ). Gen: NAD, morbidly obese Neuro: CN II-XII grossly intact, no sensorimotor deficits. HEENT: PEARLA, EOMI, MMM, fair dentition. Neck: Trachea midline, no JVD CV: RRR, no M/R/G Pulm: CTA-B, unlabored with normal inspiratory effort Abd: S/obese, erythematous wound w/ mild odor. TTP supraumbilically w/ mild bulge. Incision is transverse periumbilically. MSk: FROM x4 extr. Derm: No lesions identified. See Abd. Psych: Mood and affect appropriate for situation. Somewhat tearful talking about her pain. Vasc: 2+ pulses B-radially Extr: (+)1 pitting edema BLE IMAGING: Pending ASSESSMENT AND PLAN: Elzbieta Cristina is a 37 y.o. diabetic, morbidly obese female with chr onic wound infection, probable incisional hernia. 1. Obtain CT scan now to assess for surgical issues. 2. Optimally will need coordination for [facility] Medicaid & [facility] Bariatric program for wt loss. 3. No emergent surgical issues. However, pt is symptomatic from her incisional hernia, and will need optimization for the operating theater. This would include wt loss, control of her wound infection, and repair with mesh. The chance of a recurrent hernia after repair in her state (supreme morbid obesity with chronic wound infection) would be almost certainly near 100%, even with biological material. 4. Continue to meet with her Geothermal Operating Engineer in the outpatient setting for diet and wt loss. 5. Antibiotics: She mentions she has had Staph infections from the abdomen. D/W ID Pharmacy who recommended Clindamycin 450mg q6h; we will increase this to 600mg as that is the availa ble dose per formulary with respect to her BMI. We will prescribe this for a 10 day course d ue to the recurrence, and she may have 1 refill if the erythema is not totally resolved, but getting better. Otherwise, she has been instructed to f/u w/ her PCP for infectious issues. Addendum: CT scan shows ventral hernia w/ 4-5cm neck, non-edematous bowel w/ some loss o f domain and probable incarceration w/o overt strangulation. She does not clinically behave like she is strangulated, either. Nonetheless, we will present her at our high-risk bariatri c conference. We will see her back in 1mo for sx check. She has been instructed to regularly f/u w/ her PCP and to see the local surgeon immediately if significant obstructive sx's robel e place. We still believe she needs concomitant bariatric surgery because simply doing an in cisional hernia repair with her habitus will have a near 100% recurrence rate, especially in an infected field. Therefore, she has been instructed to f/u w/ her cafeteria counter attendant for a strict diet of <1000 kcal/d w/ high protein and low carbs/fat. She may take OTC stool softeners and plenty of liquid to prevent straining. She has been counseled at length about the plan and the gamut of surgical issues ranging from minor to emergent settings with respect to her inc isional hernia. Dr. Lu has personally interviewed and examined the patient, and concurs with the ass essment, exam and plan. I have spent over 45 minutes with this patient in counseling, CT sca n review, pathophysiology, and teaching. Howie Faria MD MIS/Bariatric Fellow, Pager [phone] [facility] Attending provider: Hernandez Brian MD documented in this en counter Plan of Treatment +--------+---------+ + + + | Date | Type | Specialty | Care Team | Description | +--------+---------+ + + + | 03/15/ | Office | Cardiology | Randell Franks, | | | 2019 | Visit | | [address] | | | | | | [place], [place] | | | | | | [address] | | | | | | [phone] | | | | | | | | +--------+---------+ + + + documented as of this encounter Results CT ABDOMEN & PELVIS W IV CONTRAST (10/07/2012 2:11 PM PDT) + + + + + + | Component | Value | Ref Range | Performed | Pathologist | | | | | At | Signature | + + + + + + | CT ABDOMEN | CT abdomen and pelvis | | | | | & PELVIS W | with 100 cc IV Isovue. | | | | | CONTRAST | Hernia. Comparison: | | | | | | None. FINDINGS: ABDOMEN: | | | | | | 6-mm right lower lobe | | | | | | nodule statistically | | | | | | postinflammatory(image | | | | | | 20), though follow-up | | | | | | imaging to document | | | | | | stability | | | | | | inapproximately 3 to 6 | | | | | | months suggested if no | | | | | | prior studies | | | | | | areavailable for | | | | | | comparison. Small hiatal | | | | | | hernia. Liver is | | | | | | unremarkable. Layering | | | | | | gallstonespresent | | | | | | without apparent | | | | | | complication. | | | | | | Pancreas, and adrenal | | | | | | glandsare unremarkable. | | | | | | Spleen is mildly | | | | | | enlarged, 15 cm in AP | | | | | | dimension.No focal | | | | | | splenic lesion. Right | | | | | | kidney is normal. | | | | | | Nonobstructingleft | | | | | | renal calculi are | | | | | | present, to 10 mm in the | | | | | | upper pole. | | | | | | Punctatecalculus noted | | | | | | in the left lower | | | | | | pole.. No | | | | | | hydroureteronephrosis. | | | | | | PELVIS: Bladder | | | | | | collapsed. Uterus and | | | | | | ovaries are normal. No | | | | | | bowelobstruction. | | | | | | Inferior midline | | | | | | abdominal wall small and | | | | | | large bowelcontaining | | | | | | hernia is identified | | | | | | without obstruction, | | | | | | with hernia andneck | | | | | | measuring 5 cm. Mild | | | | | | mesenteric | | | | | | edema/stranding within | | | | | | thehernia neck likely | | | | | | reflects mild lymphatic | | | | | | congestion. | | | | | | Vasculatureis patent | | | | | | without overt | | | | | | compression. No | | | | | | suspicious | | | | | | adenopathy.Mildly | | | | | | enlarged bilateral | | | | | | inguinal nodes are | | | | | | likely reactive. | | | | | | Nodestructive osseous | | | | | | lesion. IMPRESSION: | | | | | | Midline inferior | | | | | | abdominal wall ventral | | | | | | hernia | | | | | | containingnonobstructed | | | | | | small and large bowel as | | | | | | discussed above. No | | | | | | acuteabnormality. 6-mm | | | | | | right lower lobe nodule, | | | | | | statistically | | | | | | postinflammatory. | | | | | | Attending Radiologists: | | | | | | SEVERIANO DOS SANTOS MDAuthor: | | | | | | SEVERIANO DOS SANTOS MD I have | | | | | | personally viewed this | | | | | | procedure/exam, reviewed | | | | | | this report,and made | | | | | | changes to it where | | | | | | appropriate. | | | | | | Final/Electronically | | | | | | signed / SEVERIANO DOS SANTOS | | | | | | 10/07/2012 14:34 PM | | | | + + + + + + + + | Specimen | + + | | + + + +---------+ + + | Performing | Address | City/State/Zipcode | Phone Number | | Organization | | | | + +---------+ + + | [facility] DEPARTMENT OF | | | | | RADIOLOGY | | | | + +---------+ + + documented in this encounter Visit Diagnoses + + | Diagnosis | + + | Hernia - Primary Hernia of unspecified site of abdominal cavity without mention of | | obstruction or gangrene | + + documented in this encounter
--- OUTSIDE RECORDS SUMMARY | ~2019-12-02 | XMS | Encounter Summary ---
Demographics + + + | Address | [address] | | | [place] [address] | + + + | Home Phone [...] Author | [facility] | + + + | Organization | [facility] | + + + | Address | Unknown | + + + | Phone | Unavailable | + + + Support + + + + + | Name | Relationship | Address | Phone | + + + + + | Katalina Padilla | ECON | [address] | | | | | [place], [place] | | | | | [address] | | + + + + + | Ellie Vang | ECON | Unknown | | + + + + + Care Team Providers + +------+ + | Care Head Of Talent Management Name | Role | Phone | [...] + + + | Closed | | Nutrition | | Non[facility] | Fn | | | | | | Epic Dept | [facility] | | | | | | | [facility] [address] | | | | | | | [address] | | | | | | | [facility] for | | | | | | | Health and | | | | | | | Healing, | | | | | | | [address] | | | | | | | [place], [place] | | | | | | | [address] | | | | | | | Phone: | | | | | | | [phone] | | | | | | | Fax: | | | | | | | [phone] | +--------+--------+ + + + + Encounter Details +--------+---------+ + + + | Date | Type | Department | Care Team | Description | +--------+---------+ + + + | 08/28/ | Office | Digestive Health | [address] | Morbid obesity (HCC) | | 2015 | Visit | Center at [facility] [address] | [address] | (Primary Dx); Type | | | | [facility] | [address] [facility], | 2 diabetes mellitus | | | | for Health and | [place] [address] | (HCC) | | | | [facility] 2 | | | | | | [place], [place] | | | | | | [address] | | | | | | [phone] | | | +--------+---------+ + + + [...] documented as of this encounter Progress Notes Yuli Childs, RD - 08/28/2014 12:26 PM PST Referring Provider: Fadi Goodrich DO Outpatient [facility], Pre-Bariatric Surgery Visit Follow-up diet consult prior to having Frandy-En-Y gastric bypass surgery. Documented Time of Visit: 12:29 to 12:57 (28 minutes mues-ck-idhe with patient) SUBJECTIVE: Trying to follow a lower CHO and no sugar diet. Food Allergies: No Current Physical Activity: Exercise is hard due to excess skin. Discussed seated exercises . OBJECTIVE: Height: Ht Readings from Last 1 Encounters: 08/28/14 1.549 m (5' 1") Wt Readings from Last 1 Encounters: 08/28/14 181.439 kg (400 lb) Weight Hx: 06/16/13 178.218 kg (392 lb 14.4 oz) 04/14/13 174.998 kg (385 lb 12.8 oz) Max adult weight (per EPIC) 431lbs BMI: 75.6 Weight change since last nutrition appointment: Gained 8lbs Past Medical History: Past Medical History Diagnosis Date Neck [...] test of vagina Leg sore Anxiety Glaucoma Medications: See list in Epic snap shot Medications for Diabetes: 50u lantus at night. Checks blood sugar 2x/day. Dietary Supplements: Vit D, Vit C, K, Mag and Ca + D. Says she cannot tolerate iron. Labs: see Results Review for current labs (if available). Nutrition Diagnosis: Obesity as evidenced by BMI of 75.6. Pre-Surgery Diet: Awake: 8-9am Bowl of cereal (cheerios and special K 1 cup cereal, 1/2 cup NF milk) + Activia (light) Lunch: another bowl of cereal or a granola bar or toast 3pm - 90kcal fiber one bar Dinner: vegetable (brussels sprouts, cauliflower, spinach, broccoli, green beans) and a megan t (mostly chicken, occasional pork chop or steak) Snack: 90kcal granola bar (special K) Provided written diet suggestions to help patient lose weight before surgery. -Reviewed Liver Reduction diet. -Encouraged pt discuss decrease in CHO intake proposed today with PCP (she has an appt this week). Reviewed treating low blood sugar. Written Education Provided/Reviewed: Provided updated handbook. Recommended pt schedule an other pre-surgery visit to review post surgery diet progression. Patient's Comprehension: The patient is: Receptive Stage of change: Action Barrier(s) to education: No Learning style: Patient is a Visual learner, Verbal learner Expected Outcome: I think the patient will do moderately if following all lifestyle and be havioral changes discussed today. GOAL: The patient's goal is to have weight loss surgery to maintain weight loss and improve other health conditions. 1. Continue to practice behavioral changes to prepare for surgery. 2. Increase physical activity. 3. Review all information provided for post-surgery diet progression. 4. Call or send [employer]knott message to dietitian with any questions. Contact information was provided. Follow up with dietitian prior to surgery to review post-surgical recommendations. Yuli Childs RD, CNSC, LD Pager# [phone] documented in this enco unter Plan of Treatment +--------+---------+ + + + | Date | Type | Specialty | Care Team | Description | +--------+---------+ + + + | 03/15/ | Office | Cardiology | Randell Franks, | | | 2019 | Visit | | [address] | | | | | | [place], [place] | | | | | | [address] | | | | | | [phone] | | | | | | | | +--------+---------+ + + + documented as of this encounter Procedures + +--------+ + + + | Procedure Name | Priori | Date/Time | Associated Diagnosis | Comments | | | ty | | | | + +--------+ + + + | [place] MNT RE-ASSESSMNT | Routin | 08/28/2014 | Morbid obesity | | | X15MIN | e | 4:45 PM | ([facility]) Type 2 | | | | | PST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 | | | | | | ([facility]) | | + +--------+ + + + documented in this encounter Visit Diagnoses + + | Diagnosis | + + | Morbid obesity ([facility]) - Primary Morbid obesity | + + | Type 2 diabetes mellitus ([facility]) Type II or unspecified type diabetes mellitus without | | mention of complication, not stated as uncontrolled | + + documented in this encounter
--- OUTSIDE RECORDS SUMMARY | ~2019-12-02 | XMS | Encounter Summary ---
Demographics + + + | Address | [address] | | | [place] [address] | + + + | Home Phone | | + + + | Preferred Language | Unknown | + + + | Marital Status | Single | + + + | Mormonism Affiliation | NON | + + + | Race | White | + + + | Ethnic Group | Not or | + + + Author + + + | Author | [facility] | + + + | Organization | [facility] | + + + | Address | Unknown | + + + | Phone | Unavailable | + + + Support + + + + + | Name | Relationship | Address | Phone | + + + + + | Katalina Padilla | ECON | [address] | | | | | [place], [place] | | | | | [address] | | + + + + + | Ellie Vang | ECON | Unknown | | + + + + + Care Team Providers + +------+ + | Care Sessions Clerk Name | Role | Phone | + [...] | | | | | | | [place] for | | | | | | | Health and | | | | | | | Healing, | | | | | | | [address] | | | | | | | [place], [place] | | | | | | | [address] | | | | | | | Phone: | | | | | | | [phone] | | | | | | | Fax: | | | | | | | [phone] | +--------+--------+ + + + + Encounter Details +--------+---------+ + + + | Date | Type | Department | Care Team | Description | +--------+---------+ + + + | 08/28/ | Office | Digestive Health | [address] | Morbid obesity (HCC) | | 2015 | Visit | Center at [facility] [address] | [address] | (Primary Dx); Type | | | | [facility] | [address] [facility], | 2 diabetes mellitus | | | | for Health and | [place] [address] | (HCC) | | | | [facility] 2 | | | | | | [place], [place] | | | | | | [address] | | | | | | [phone] | | | +--------+---------+ + + + [...] of Visit: 12:29 to 12:57 (28 minutes gtzz-cq-sihp with patient) SUBJECTIVE: Trying to follow a [...] post-surgery diet progression. 4. Call or send C[employer] message to dietitian with any questions. Contact information was provided. Follow up with dietitian prior to surgery to review post-surgical recommendations. Yuli Childs RD, CNSC, LD Pager# [phone] documented in this enco unter Plan of Treatment +--------+---------+ + + + | Date | Type | Specialty | Care Team | Description | +--------+---------+ + + + | 03/15/ | Office | Cardiology | Randell Franks, | | | 2019 | Visit | | [address] | | | | | | [place], [place] | | | | | | [address] | | | | | | [phone] | | | | | | | | +--------+---------+ + + + documented as of this encounter Procedures + +--------+ + + + | Procedure Name | Priori | Date/Time | Associated Diagnosis | Comments | | | ty | | | | + +--------+ + + + | [place] MNT RE-ASSESSMNT | Routin | 08/28/2014 | Morbid obesity | | | X15MIN | e | 4:45 PM | ([facility]) Type 2 | | | | | PST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 | | | | | | ([facility]) | | + +--------+ + + + documented in this encounter Visit Diagnoses + + | Diagnosis | + + | Morbid obesity ([facility]) - Primary Morbid obesity | + + | Type 2 diabetes mellitus ([facility]) Type II or unspecified type diabetes mellitus without | | mention of complication, not stated as uncontrolled | + + documented in this encounter
--- OUTSIDE RECORDS SUMMARY | ~2019-12-02 | XMS | Encounter Summary ---
Demographics + + + | Address | [address] | | | [place] [address] | + + + | Home Phone | | + + + | Preferred Language | Unknown | + + + | Marital Status | Single | + + + | Adventism Affiliation | NON | + + + [...] + | Katalina Padilla | ECON | [address] | | | | | [place], [place] | | | | | [address] | | + + + + + | Ellie Vang | ECON | Unknown | | + + + + + Care Team Providers + +------+ + | Care Secondary Social Studies Teacher Name | Role | Phone | + +------+ + | Kenyatta Cardenas MD | PCP | | + +------+ + Reason for Visit +--------+ + | Reason | Comments | +--------+ + | Other | pt need a re-test? | +--------+ + Encounter Details +--------+ + + + + | Date | Type | Department | Care Team | Description | +--------+ + + + + | 02/15/ | Telephone | Cardiology | Randell Franks, | Other (pt need a | | 2019 | | Preventive at [facility] | MD [address] | re-test? ) | | | | [address] | [place], [place] | | | | | Mailcode: [place] | [address] | | | | | [facility] | [phone] | | | | | and [address], | | | | | | [address] | | | | | | [place], [place] | | | | | | [address] | | | | | | [phone] | | | +--------+ + + + [...] [address] | | | | | | [facility] [place] | | | | | | [address] | | | | | | [phone] | | | | | | | | +--------+---------+ + + + + +------+--------+ + + | Name | Type | Priori | Associated Diagnoses | Order Schedule | | | | ty | | | + +------+--------+ + + | TSH | Lab | Routin | Hypothyroidism, | Expected: 02/18/2019 | | | | e | unspecified type | (Approximate), | | | | | | Expires: 03/21/2020 | + +------+--------+ + + | PTH, SERUM | Lab | Routin | Hypothyroidism, | Expected: 02/18/2019 | | | | e | unspecified type | (Approximate), | | | | | | Expires: 03/21/2020 | + +------+--------+ + + documented as of this encounter Visit Diagnoses + + | Diagnosis | + + | Hypothyroidism, unspecified type - Primary | + + documented in this encounter"
--- OUTSIDE RECORDS SUMMARY | ~2019-12-02 | XMS | Encounter Summary ---
Demographics + + + | Address | [address] | | | [place] [address] | + + + | Home Phone [...] + | Katalina Padilla | ECON | [address] | | | | | [place], [place] | | | | | [address] | | + + + + + | Ellie Vang | ECON | Unknown | | + + + + + Care Team Providers + +------+ + | Care Neurology Hospitalist Name | Role | Phone | + +------+ + | Fadi oGodrich DO | PCP | | + +------+ [...] | | 2014 | | Preventive at [facility] | [address] | ([place]); | | | | [address] | [place], [place] | Refill Request | | | | Mailcode: [facility] | [address] | | | | | [facility] | [phone] | | | | | and [address], | | | | | | [address] | | | | | | [place], [place] | | | | | | [address] | | | | | | [phone] | | | +--------+--------+ + + + [...] [address] | | | | | | [place], [place] | | | | | | [address] | | | | | | [phone] | | | | | | | | +--------+---------+ + + + documented as of this encounter Visit Diagnoses Not on filedocumented in this encounter"
--- OUTSIDE RECORDS SUMMARY | ~2019-12-02 | XMS | Encounter Summary ---
Demographics + + + | Address | [address] | | | [place] [address] | + + + | Home Phone | | + + + | Preferred Language | Unknown | + + + | Marital Status | | + + + | Buddhism Affiliation | Unknown | + + + | Race | Unknown | + + + | Ethnic Group | Unknown | + + + Author + + + | Author | [facility] | | | and [place]ana | + + + | Organization | [facility] | | [...] Team Providers + +------+ + | Care Estimator And Drafter Supervisor Name | Role | Phone | + +------+ + | Jorje Hill | PCP | | + +------+ + Reason for Visit +--------+ + | Reason | Comments | +--------+ + | Pre-Op | confirm arrival for 06/22 procedure | +--------+ + Encounter Details +--------+ + + + + | Date | Type | Department | Care Team | Description | +--------+ + + + + | 06/21/ | Telephone | [facility] | Christian Dawson, | Pre-Op (confirm | | 2019 | | CENTER CV INTRA OP | MD Saumya Pandya | arrival for 06/22 | | | | [address] | [address] | procedure) | | | | [place], [place] | [place] [address] | | | | | [address] | [phone] | | | | | [phone] | | | +--------+ + + + [...] | | 2020 | Visit | | Toshia, [address]ING[address] | | | | | | [address] | | | | | | [place] [address] | | | | | | [phone] | | | | | | | | +--------+---------+ + + + documented as of this encounter Visit Diagnoses Not on filedocumented in this encounter"
--- OUTSIDE RECORDS SUMMARY | ~2019-12-02 | XMS | Encounter Summary ---
Demographics + + + | Address | [address] | | | [place] [address] | + + + | Home Phone [...] + | Katalina Padilla | ECON | [address] | | | | | [place], [place] | | | | | [address] | | + + + + + | Ellie Vang | ECON | Unknown | | + + + + + Care Team Providers + +------+ + | Care Rubber Ball Finisher Name | Role | Phone | + [...] | | 2017 | | Preventive at [facility] | MD [address] | | | | | [address] | [place], [place] | | | | | Mailcode: 9A | [address] | | | | | [facility] | [phone] | | | | | and [facility], | | | | | | [address] | | | | | | [place], [place] | | | | | | [address] | | | | | | [phone] | | | +--------+ + + + [...] | | 2019 | Visit | | [address] | | | | | | [place], [place] | | | | | | [address] | | | | | | [phone] | | | | | | | | +--------+---------+ + + + documented as of this encounter Visit Diagnoses Not on filedocumented in this encounter"
--- OUTSIDE RECORDS SUMMARY | ~2019-12-02 | XMS | Encounter Summary ---
Demographics + + + | Address | [address] | | | [place] [address] | + + + | Home Phone [...] [place], [place] | | | | | [address] | | + + + + + | Ellie Vang | ECON | Unknown | | + + + + + Care Team Providers + +------+ + | Care Dining Server Name | Role | Phone | + +------+ + | Kenyatta Cardenas MD | PCP | | + +------+ + Reason for Visit + + + | Reason | Comments | + + + | housing accomodation | RPV approved | + + + Encounter Details +--------+ + + + + | Date | Type | Department | Care Team | Description | +--------+ + + + + | 06/02/ | Telephone | SOCIAL WORK | Anastacia Almaraz | housing accomodation | | 2019 | | [address] | (V approved) | | | | [address] | [place] Guti[place]rez [place], | | | | | Mailcode: CH6A | [place] [address] | | | | | [place], [place] | | | | | | [address] | | | | | | [phone] | | | +--------+ + + + [...] | | | | | | [place] | | | | | | [address] | | | | | | [phone] | | | | | | | | +--------+---------+ + + + documented as of this encounter Visit Diagnoses Not on filedocumented in this encounter"
--- OUTSIDE RECORDS SUMMARY | ~2019-12-02 | XMS | Encounter Summary ---
Demographics + + + | Address | [address] | | | [place] [address] | + + + | Home Phone | | + + + | Preferred Language | Unknown | + + + | Marital Status | Single | + + + | Confucianism Affiliation | NON | + + + [...] + | Katalina Padilla | ECON | [address] | | | | | [place], [place] | | | | | [address] | | + + + + + | Ellie Vang | ECON | Unknown | | + + + + + Care Team Providers + +------+ + | Care Sewage Reticulation Drafting Officer Name | Role | Phone | + +------+ + | Kenyatta Cardenas MD | PCP | | + +------+ + Reason for Visit + + + | Reason | Comments | + + + | Refill Request | PHENTERMINE 37.5 mg oral tablet | + + + | Refill Request | | + + + Encounter Details +--------+--------+ + + + | Date | Type | Department | Care Team | Description | +--------+--------+ + + + | 02/15/ | Refill | Cardiology | Randell Franks, | Refill Request | | 2019 | | Preventive at [facility] | MD [address] | (PHENTERMINE 37.5 mg | | | | [address] | [place], [place] | oral tablet); | | | | Mailcode: [place] | [id number] | Refill Request | | | | [facility] | [phone] | | | | | and [address], | | | | | | [address] | | | | | | [place], [place] | | | | | | [address] | | | | | | [phone] | | | +--------+--------+ + + + [...] | | 2019 | Visit | | [address] | | | | | | [place], [place] | | | | | | [address] | | | | | | [phone] | | | | | | | | +--------+---------+ + + + documented as of this encounter Visit Diagnoses Not on filedocumented in this encounter"
--- OUTSIDE RECORDS SUMMARY | ~2019-12-02 | XMS | Encounter Summary ---
Demographics + + + | Address | [address] | | | [place] [address] | + + + | Home Phone | | + + + | Preferred Language | Unknown | + + + | Marital Status | Single | + + + | Mosque Affiliation | NON | + + + | Race | White | + + + | Ethnic Group | Not or | + + + Author + + + | Author | [facility] | + + + | Organization | [facility] | + + + | Address | Unknown | + + + | Phone | Unavailable | + + + Support + + + + + | Name | Relationship | Address | Phone | + + + + + | Katalina Padilla | ECON | [address] | | | | | [place], [place] | | | | | [address] | | + + + + + | Ellie Vang | ECON | Unknown | | + + + + + Care Team Providers + +------+ + | Care Mixing And Molding Machine Operator Name | Role | Phone [...] from | | 2016 | | at [facility] [address] | RUG SETTER AXMINSTER [address] | [facility] | | | | Ave Mailcode: CH7C | [place], [place] | | | | | [facility] | [address] | | | | | and [address], | [phone] | | | | | [facility] | | | | | | Floor [place], [place] | | | | | | [address] | | | | | | [phone] | | | +--------+ + + + [...] | | 2019 | Visit | | [address] | | | | | | [place], [place] | | | | | | [address] | | | | | | [phone] | | | | | | | | +--------+---------+ + + + documented as of this encounter Visit Diagnoses Not on filedocumented in this encounter"
--- OUTSIDE RECORDS SUMMARY | ~2019-12-02 | XMS | Encounter Summary ---
Demographics + + + | Address | [address] | | | [place] [address] | + + + | Home Phone [...] + + | Author | [facility] | + + + | Organization | [facility] | + + + | Address | Unknown | + + + | Phone | Unavailable | + + + Support + + + + + | Name | Relationship | Address | Phone | + + + + + | Katalina Padilla | ECON | [address] | | | | | [place], [place] | | | | | [address] | | + + + + + | Ellie Vang | ECON | Unknown | | + + + + + Care Team Providers + +------+ + | Care Geriatric Nurse Assistant Name | Role | Phone | + +------+ + | Fadi Goodrich DO | PCP | | + +------+ + Encounter Details +--------+ + + + + | Date | Type | Department | Care Team | Description | +--------+ + + + + | 12/31/ | Abstract | Digestive Health | [facility], | | | 2012 | | Center at [facility] [address] | MD [address] | | | | | [address] | [facility] | | | | | Mailcode: [place] | [place], [place] | | | | | [facility] and | [address] | | | | | [facility] [address] | [phone] | | | | | [place], [place] | | | | | | [address] | | | | | | [phone] | | | +--------+ + + + [...] | 03/15/ | Office | Cardiology | Radnell Franks, | | | 2019 | Visit | | [address] | | | | | | [place], [place] | | | | | | [address] | | | | | | [phone] | | | | | | | | +--------+---------+ + + + documented as of this encounter Visit Diagnoses Not on filedocumented in this encounter"
--- OUTSIDE RECORDS SUMMARY | ~2019-12-02 | XMS | Encounter Summary ---
Demographics + + + | Address | [address] | | | [place] [address] | + + + | Home Phone | | + + + | Preferred Language | Unknown | + + + | Marital Status | Single | + + + | Temple Affiliation | NON | + + + [...] + | Katalina Padilla | ECON | [address] | | | | | [place], [place] | | | | | [address] | | + + + + + | Ellie Vang | ECON | Unknown | | + + + + + Care Team Providers + +------+ + | Care Pill Coater Name | Role | Phone | + +------+ + | Fadi Goodrich DO | PCP | | + +------+ + Reason for Visit + + + | Reason | Comments | + + + | Weight gain | | + + + | Cellulitis | | + + + AUTH/CERT +--------+--------+ [...] | +--------+ + + + + | 11/05/ | Hospital | [facility] [address] | Joseph An | | | 2016 - | Encounter | [address] | MD Birgit [address] [facility] | | | | | 14C [facility] | [address] | | | 11/20/ | | [place], [place] | [place], [place] | | | 2016 | | [address] | [address] | | | | | [phone] | [phone] | | | | | | | | | | | | Ana, | | | | | | MD Briana [address] | | | | | | [address] | | | | | | [address] [place], [place] | | | | | | [address] | | | | | | [phone] | | | | | | | | | | | | Carmelina Tucker, | | | | | | JEFFREY-Aimee [address] | | | | | | [address] | | | | | | [place], [place] | | | | | | [address] | | | | | | [phone] | | | | | | | | | | | | Charley Lacey MD | | | | | | Jose Scott MD | | | | | | [address] | | | | | | [address] | | | | | | [place], [place] | | | | | | [address] | | | | | | [phone] | | | | | | | | | | | | Mannie Larkin MD | | | | | | [address] | | | | | | [address] [place], | | | | | | [place] [address] | | | | | | [phone] | | | | | | | | | | | | Tyrone Adrian MD | | | | | | [address] | | | | | | [address] [place], | | | | | | [place] [address] | | | | | | [phone] | | | | | | | [...] + + + | Blood Pressure | 133/89 | 11/21/2015 8:12 AM | | | | | PDT | | + + + + + | Pulse | 111 | 11/21/2015 8:12 AM | | | | | PDT | | + + + + + | Temperature | 36.6 C (97.9 F) | 11/21/2015 8:12 AM | | | | | PDT | | + + + + + | Respiratory Rate | 20 | 11/21/2015 8:12 AM | | | | | PDT | | + + + + + | Oxygen Saturation | 95% | 11/20/2015 10:05 PM | | | | | PDT | | + + + + + | Inhaled Oxygen | - | - | | | Concentration | | | | + + + + + | Weight | 186.1 kg (410 lb 4.8 | 11/21/2015 6:34 AM | | | | oz) | PDT | | + + + + + | Height | 154.9 cm (5' 1") | 11/16/2015 7:28 AM | | | | | PDT | | + + + + + | Body Mass Index | 77.53 | 11/16/2015 7:28 AM | | | | | PDT | | + + + + + documented in this encounter Discharge Summaries Yosef Segovia T - 11/21/2015 3:29 PM PDTFormatting of this note might be different from t he original. INPATIENT PHYSICIAN DISCHARGE SUMMARY Discharging Provider: Yosef Segovia MD Discharging Attending Physician: Tyrone Adrian MD Hospital Stay: 15 day(s) PCP: Fadi Goodrich DO Admission Date: 11/06/2015 Discharge Date: 11/21/2015 Principal Final Diagnosis: #Edema and weight gain Additional Diagnoses: #Dyspnea on exertion #Left lower extremity DVT #Presumed PE #Right heart failure #Severe Morbid obesity #Likely AMARA (obstructive sleep apnea) #Type 2 diabetes mellitus #Iron deficiency anemia due to chronic blood loss #Hypoalbuminemia #Hypothyroidism #Candidal intertrigo Procedures: 11/20 TTE + + Final Impressions: 1. The interpretation of images is limited by poor acoustic windows. 2. The left ventricular cavity size is normal. 3. The LV ejection fraction is normal. 4. The right ventricular size is moderately enlarged. 5. Moderately reduced RV systolic function. 6. There are no prior exams available for comparison. + + Reason for Admission: Elzbieta Cristina is a 40 year old woman w/ hx of DM2, HTN, AMARA, hypothyroidism, bipolar dis order, and morbid obesity who presented for severe dyspnea on exertion, rapid weight gain wi th fluid retention found to have DVT and evidence of reduced RV function on TTE who was aggr essively diuresed and anticoagulated. Hospital Course by Problem (with follow-up plan/instructions): #Weight gain and edema #Dyspnea on exertion #Right heart failure Patient described subacute progressive dyspnea on exertion over the prior 1-2 months as wel l as 100 lb weight gain over the past 6 months, seen in endocrine clinic, and advised to com e to the ED. She also had bilateral lower extremity edema (L>R) and erythema, presumed cellu litis, that did not respond to outpatient antibiotics. Initiated aggressive diuresis with IV furosemide 120mg BID dosing with good response. Increased to dual nephron blockade with PO metolazone 2.5mg daily in addition to IV furosemide. Diuresed well for roughly 2 weeks, unti l creatinine and bicarb bump. Her I/O net was -40 liter, down ~60 lb. Found a good response to PO torsemide 80mg BID (dose prior to admission was 40mg BID) with potassium supplemenatio n. She will need close followup with Dr. Goodrich for assessment of volume status, renal funct ion, and electrolyte balance on new diuretic regimen. Cardiology was consulted for considera tion of right heart cath, as it was thought that her heart failure was due to AMARA, obesity h ypoventilation, chronic VTEs, or pulmonary HTN. They did not see any classic findings of pul monary hypertension on TTE, did not recommend a right heart cath, but did want her to follow up with seismic observer in [place]. She should continue working towards bariatric surgery wh ich will ultimately put less stress on her heart. -Continue torsemide 80mg BID -Increase potassium supplementation to KCl 40mg BID -Daily weights and strict 2g Na 2L fluid restricted diet -Close followup with Dr. Goodrich (appt on 11/25 at 11AM) -Needs followup with cardiology in [place] #Left lower extremity DVT #Presumed PE Asymmetric left lower extremity pain and swelling was suspicious for DVT and confirmed with duplex ultrasound. Did not pursue CTA as it was decided that it would not guide changer . Started anticoagulation bridge with heparin gtt and initiation of warfarin. Prolonged cour se of time to get INR therapeutic thought to be due to obesity and aggressive diuresis. DOAC s were considered, but due to lack of data in the morbidly obese population, warfarin was ul timately chosen. In regards to duration of anticoagulation, her history of clotting is nebul ous. She states she had a dural venous thrombosis following while taking a medicat ion to dry her breast milk, which sounds provoked. This current DVT, in the setting of relat scarlett immobilization due to symptoms, could be argued as provoked as well. She should stay on warfarin for at least 6 months, and lifelong anticoagulation should be considered. It would be reasonable for a hematology referral to take a closer look at her case and decide the dur ation of anticoagulation. -Continue warfarin 10mg QPM for at least 6 months -Check next INR on 11/[address] Goodrich (PCP) -Dr. Goodrich's office will be managing her warfarin dosing and INR checks -Consider referral to hematology clinic #Severe Morbid obesity #Likely AMARA (obstructive sleep apnea) Patient has been attempting to lose weight and is followed by Dr. Franks in endocrine clin ic for consideration of bariatric surgery. Patient would still like to pursue this option. A component of her heart failure is likely due to her obesity. Overnight continuous pulse oxi metry did not show enough desaturations to classify as typical obstructive sleep apnea. She would likely benefit from another official sleep study. -Repeat outpatient sleep study #Iron deficiency anemia due to chronic blood loss On presentation had borderline microcytic anemia with ferritin of 18. Anemia was possibly c ontributing to her dyspnea on exertion. Believed it most likely to be due to nutrition (low albumin) or menses as she reports irregular heavy periods prior to Nexplanon. Repleted with IV iron sucrose 200mg x 5 doses. Patient does not tolerate PO ferrous sulfate. Subsequent ri se in ferritin to 507. -Continue to monitor #DM2 with associate diabetic neuropathy Hgb A1c 5.3% in 08/2014. Complicated by neuropathy controlled by gabapentin. -Continue insulin NPH-regular 70-30 100 units QAM -Continue gabapentin 300mg QID #Hypoalbuminemia Possibly due to poor nutrition vs malabsorption from gut edema. No evidence of liver diseas e, INR normal prior to warfarin, and repeat UA's showed no evidence of proteinuria. #Candidal intertrigo Likely suresh due to warm, moist region, and had characeristic satellite lesions. Treated with Nystatin powder and resolved by discharge. #Bipolar disorder with associated depression and anxiety Continue home medications: alprazolam 1mg TID prn, fluoxetine 40mg po qday, olanzapine 30mg po qhs #Hypothyroidism TSH was wnl. Continue home thyroid 30mg po daily #Migraine Headaches Currently on topiramate for control. Discharge Physical Exam: Blood pressure 133/89, pulse 111, temperature 36.6 C (97.9 F), temperature source Oral, resp. rate 20, height 1.549 m (5' 1"), weight 186.111 kg (410 lb 4.8 oz), SpO2 95 %. General: morbidly obese, resting comfortably in bed HEENT: unable to assess JVP Lungs: clear to auscultation bilaterally Heart: rrr, no murmurs or gallops Abd: soft NT ND,+BS Ext: pitting edema, resolved mild LE erythema bilaterally Pertinent Findings: Labs: Chemistries: Last 72 Hours (or 3 results): Recent Labs 11/19/15 1420 11/20/15 0600 11/20/15 2152 11/21/15 0627 11/21/15 0922 NA 136 -- 139 -- -- 137 -- K 2.7* -- 2.7* -- -- 3.0* -- CL 98 -- 99 -- -- 96* -- BICARB 27 -- 29 -- -- 31 -- BUN 42* -- 46* -- -- 53* -- CR 1.03 -- 0.95 -- -- 1.02 -- GLU 214* < > 162* < > 188* 170* 179* CA 9.5 -- 9.6 -- -- 10.2 -- MG 2.2 -- 2.5 -- -- 2.7* -- < > = values in this interval not displayed. Lab Results Component Value Date INRPT 2.85* 11/21/2015 Imagin/12 CXR 2v FINDINGS: The cardiomediastinal contour is normal. The lungs are clear. There is no definite pleural effusion. There is no pulmonary edema or pneumothorax. The bones are intact. 11/06 US doppler lower extremity IMPRESSION: Abnormal Doppler ultrasound exam of the left lower extremity venous system with occlusive thrombus seen within the mid and distal femoral vein and popliteal vein. Nonocclusive thrombus in left posterior tibial vein. Bilateral common femoral veins patent. Other Studies: TTE (see procedures above) Outstanding or Pending Labs/Studies: None Consultants (service/attending name): Cardiology/ Dr Naylor and Dr. Hoover Discharge Medications: Discharge Medication List as of 11/21/2015 1:09 PM START taking these medications Details warfarin 10 mg oral tablet Take 1 tablet by mouth once daily in the evening., Disp-30 table t, R-0, Print Prescription CONTINUE these medications which have CHANGED or have new prescriptions Details insulin NPH-insulin regular 70-30 (RELION NOVOLIN 70/30) 100 unit/mL (70-30) subcutaneous s uspension Inject 100 Units under the skin (SUBC) once daily in the morning., Disp-30 mL, R-0 , No Print potassium chloride SR 20 mEq oral tablet,ER particles/crystals Take 2 tablets by mouth two times daily., Disp-120 tablet, R-0, Print Prescription torsemide 20 mg oral tablet Take 4 tablets by mouth two times daily., Disp-240 tablet, R-0, Print Prescription CONTINUE these medications which have NOT CHANGED Details ALPRAZolam 1 mg oral tablet Take 1 mg by mouth three times daily as needed for anxiety., Hi storical Med ascorbic acid (VITAMIN C) 500 mg Oral tablet Take 500 mg by mouth once daily. , Historical Med CALCIUM [id number] ORAL Take 2 tablets by mouth two times daily., Historical Me d eletriptan 20 mg oral tablet Take 20 mg by mouth as needed for migraine. May repeat in 2 ho urs if necessary; Max of 2 doses per 24 hour period., Historical Med ergocalciferol (VITAMIN D2) 50,000 unit oral capsule Take 50,000 Units by mouth twice weekl y (on Thursday and )., Historical Med FLUoxetine 20 mg oral tablet Take 60 mg by mouth once daily at bedtime., Historical Med gabapentin 300 mg oral capsule Take 300 mg by mouth four times daily., Historical Med HYDROcodone-acetaminophen 10-325 mg oral tablet Take 1 tablet by mouth every four hours as needed., R-0, Historical Med magnesium oxide 400 mg oral tablet Take 400 mg by mouth once daily., Historical Med metFORMIN 1,000 mg Oral tablet Take 1,000 mg by mouth two times daily., Historical Med OLANZapine 15 mg oral tablet Take 30 mg by mouth once daily at bedtime., Historical Med phentermine 37.5 mg oral tablet Take 1 tablet by mouth once daily in the morning. Administe r before breakfast., Disp-90 tablet, R-1, Requires Phone In pseudoephedrine 60 mg oral tablet Take 120 mg by mouth once daily as needed., Historical Me d ranitidine 150 mg oral tablet Take 150 mg by mouth once daily as needed. Indications: HEART BURN, Historical Med sodium fluoride 1.1 % dental cream Place onto the teeth. Use to brush teeth 2 to 3 times d aily as directed. Do not eat drink or rinse mouth immediately following use. Do not swallow, Historical Med thyroid (ARMOUR THYROID) 30 mg oral tablet tab Take 30 mg by mouth once daily., Historical Med topiramate 200 mg oral tablet Take 200 mg by mouth two times daily. Indications: MIGRAINE P REVENTION, Historical Med traZODone 150 mg Oral tablet Take 150 mg by mouth once daily at bedtime. , Historical Med STOP taking these medications FLUoxetine 40 mg Oral capsule Comments: Reason for Stopping: piroxicam 20 mg Oral capsule Comments: Reason for Stopping: SULFAMETHOXAZOLE/TRIMETHOPRIM (BACTRIM ORAL) Comments: Reason for Stopping: Rationale for Medication Changes: -Decreased response to prior diuretic package -Increased need for potassium supplementation -She did not have cellulitis, stopped antibiotics -Stopped NSAID due to interaction with warfarin Allergies: Allergies Allergen Reactions Amoxicillin Benadrilina [Diphenhydramine Hcl] Hives Parlodel [Bromocriptine] Unknown Blood clots Code Status: Full POLST completed: no Follow-up Appointments: @[email or web address] Future Appointments Provider Department Dept Phone Center 11/27/2015 9:00 AM Cyndi Meier Cardiology Congestive [facility] Failure at [facility] [phone] Cardiology Additional Instructions/Orders: Diet Diabetic (Consistent Carbohydrate) Diabetic diet (Consistent Carbohydrate)- You should be careful to control your daily inta ke of carbohydrates and ensure that you are consuming the same amount of carbohydrates each day. Your health care provider will work with you to determine the appropriate amount of ca rbohydrates your body needs. Diet Low Sodium, Low Cholesterol Sodium 2 gm, Low Cholesterol- Choose foods that are low in cholesterol, saturated fat, tota l fat and have low to moderate sodium levels. Fluid restriction: Fluid restriction 2,000 mL- You must restrict the amount of fluids you c onsume, including foods that may become liquid at room temperature (gelatin, ice cream, etc. ). Activity No activity restrictions Destination: Destination: Home Condition on Discharge Good Yosef Segovia MD PGY-1 Internal Medicine [id number] INPATIENT FACULTY PROGRESS NOTE - GM 1 Author; Tyrone Adrian MD Attending Physician: Tyrone Adrian MD Hospital Day: 15 PCP: Fadi Goodrich DO PCP PCP Patient's Name: Elzbieta Cristina Today's Date: 11/21/2015 I personally interviewed the patient, performed the de la cruz elements of the physical examinatio n, and personally formulated the assessment and plan with the resident. I agree with the Dr Renee Segovia's documentation, except as noted or expanded upon below. Ready to go. Good follow up. Needs anticoag clinc See note Active Issues: 1) *Anasarca 2) Acute DVT (deep venous thrombosis) -- left mid & distal femoral vein, and popliteal vei n 3) Edema and weight gain 4) Severe Morbid obesity (HCC), BMI 88 5) AMARA (obstructive sleep apnea) 6) Hypoventilation associated with obesity (HCC) 7) Type 2 diabetes mellitus (HCC) 8) Iron deficiency anemia due to chronic blood loss 9) Hypoalbuminemia (no proteinuria, need to rule out synthetic, nutrition, loss) 10) Hypothyroidism 14) Right heart failure (HCC) 15) Candidal intertrigo Tyrone Adrain MD [facility] 14C reimbursement counselor Division of Hospital Medicine Department of Medicine [address] [place] [phone] [facility] DEPARTMENT: Hosp- [phone] Place of Service: Date of Service: 11/21/2015 CSN: [id number] Modifiers:GC Resident Involved: Yes Suggested CPT: 57822 Discharge Management < 30 minute documented in this encou nter Medications at Time of Discharge + + + +---------+--------+ + | Medication | Sig | Dispensed | Refills | Start | End Date | | | | | | Date | | + + + +---------+--------+ + | CALCIUM | Take 2 tablets by | | 0 | | | | [id number] | mouth two times | | | [...] documented as of this encounter Progress Notes Tyrone Adrian MD - 11/20/2015 6:05 PM PDTINPATIENT FACULTY PROGRESS NOTE - GM 1 Author; Tyrone Adrian MD Attending Physician: Tyrone Adrian MD Hospital Day: 14 PCP: Fadi Goodrich DO PCP PCP Patient's Name: Elzbieta Cristina Today's Date: 11/20/2015 I personally interviewed the patient, performed the de la cruz elements of the physical examinatio n, and personally formulated the assessment and plan with the resident. I agree with the Dr Renee Segovia & pradeep Diamond' documentation, except as noted or expanded upon below. Active Issues: 1) *Anasarca 2) Acute DVT (deep venous thrombosis) -- left mid & distal femoral vein, and popliteal vei n 3) Edema and weight gain 4) Severe Morbid obesity (HCC), BMI 88 5) AMARA (obstructive sleep apnea) 6) Hypoventilation associated with obesity (HCC) 7) Type 2 diabetes mellitus (HCC) 8) Iron deficiency anemia due to chronic blood loss 9) Hypoalbuminemia (no proteinuria, need to rule out synthetic, nutrition, loss) 10) Hypothyroidism 14) Right heart failure (HCC) 15) Candidal intertrigo Tyrone Adrian MD [facility] 14C reimbursement counselor Division of Hospital Medicine Department of Medicine [facility] [address] [place] [address] [facility] DEPARTMENT: Hosp- [phone] Place of Service: - Date of Service: 11/20/2015 CSN: [id number] Modifiers:CHANDLER Resident Involved: Yes Suggested CPT: 47768 Subsequent Visit Exp Prob Foc/Mod Complexity 25 min olleen Diamond - 016 6:49 AM PDT PHYSICIAN LAWN CARE WORKER STUDENT PROGRESS NOTE FOR EDUCATIONAL PURPOSES ONLY INPATIENT PROGRESS NOTE PATIENT INFORMATION Patient Name: Elzbieta Cristina Date of : 1975 Date of Admission: 11/06/2015 PCP: Fadi Goodrich DO Room[facility]Bed: [facility] Attending Provider: Tyrone Adrian MD Encounter Information Date of Service: 11/08/2015 Hospital Day #: 14 Last 24hrs: No acute events overnight. Subjective - Began spotting yesterday and she states she has a hx of endometriosis and ovarian cysts a nd believes her left groin pain may be menses related. Objective PHYSICAL EXAMINATION Last 24 hour min/max Temp: 36.7 C (98.1 F) Temp Min: 36.4 C (97.5 F) Max: 36.7 C (98.1 F) Pulse: 108 Pulse Min: 102 Max: 112 Resp: 17 Resp Min: 17 Max: 18 BP: 117/82 mmHg BP Min: 117/82 Max: 129/62 SpO2: 94 % SpO2 Min: 92 % Max: 96 % Body mass index is 78.59 kg/(m^2). WT change: Net: -61 lb 11/05: 473 lb 11/19: 412 lb Intake/Output Summary (Last 24 hours) at 11/20/15 0700 Last data filed at 11/20/15 0640 Gross per 24 hour Intake 3016 ml Output 5003 ml Net -1987 ml Constitutional: Pleasant, non-toxic appearing female in NAD. HEENT: NC/AT, EOMI, no icterus, MMM, neck supple FROM. CV: Tachy, regular rhythm, no m/r/g. Radial and pedal pulses 2+ bilat. Pulmonary/Chest: CTA. No crackles. No respiratory distress. Abd: Soft. +BS. Tender over ventral hernia on right abd, and on LLQ, no CVA tenderness. No rebound or guarding. Musculoskeletal: bilat LE tender to palpation, strength equal bilaterally. Right distal olga lidia f tender to palpation. No erythema. Neuro: Normal strength, intact distal sensation to light touch. CN II- XII intact. Skin: Warm, dry. Scattered light pink chaffing under pannus. Some skin breakdown in places, no ulceration or purulent drainage. LEs no longer erythematous. Psych: normal mood and affect DATA Chemistries: Last 72 Hours (or 3 results) - Refreshable Recent Labs 11/18/15 0625 11/18/15 1425 11/19/15 1420 11/19/15 1747 11/19/15 2248 11/20/15 0600 NA 138 -- -- -- 136 -- -- 139 K 3.6 -- 3.0* -- 2.7* -- -- 2.7* CL 106 -- -- -- 98 -- -- 99 BICARB 23 -- -- -- 27 -- -- 29 BUN 31* -- -- -- 42* -- -- 46* CR 0.86 -- -- -- 1.03 -- -- 0.95 GLU 148* < > -- < > 214* 153* 153* 162* CA 9.1 -- -- -- 9.5 -- -- 9.6 MG 2.1 -- 2.2 -- 2.2 -- -- 2.5 < > = values in this interval not displayed. INR: 2.70 Mag 2.2 Ferritin: 507 ASSESSMENT/PLAN Elzbieta Cristina, a 40 year old morbidly obese woman with DM2 and untreated AMARA who present ed with severe YO, 100 lb unintended weight gain, found to have a LLE DVT, new RV dysfuncti on and anasarca, currently started on coumadin and diuresed with thoughts of RHC or V/Q stud y post diuresis. # Decompensated right sided heart failure complicated by dyspnea on exertion and anasarca TTE showed mod LV dysfunction with RVSP 28. Upon further eval, cardiology does not want to do a RHC, citing symptomatic improvement (note 11/20/15) but did want referral to OP cardiolo gy. 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 Trial of 2.5 mg metolazone and transitioning to PO torsemide. Will continue to c losely monitor K, Mag and Cr. - Cardiology involved: Recs appreciated - AM BMP, PM K + mag - Metolazone 2.5 mg DAILY + 80 PO Torsemide BID (IV lasix given this morning, will begin BID PO Torsemide this afternoon) - D/C IV furosemide - 40 meq PO K TID - Monitor strict I&O's + daily weights - Continue PO Mag oxide tab daily # LLE DVT and presumed PE US confirmed left mid & distal femoral vein and popliteal thrombosis. Uncertain if this is idiopathic vs provoked d/t hx of surgery 8 months ago and increasingly sedentary lifestyle. INR currently therapeutic and pharm monitoring. Goal to maintain INR 2-3. Discussed risk/be nefit of warfarin vs other direct oral anticoagulat agents (i.e FXa inhibitors). - Pharmacy following - daily INR # Iron deficiency anemia, chronic Upon admit, had borderline microcytic anemia with Iron 37, TIBC 11, Ferritin 18. Following IV iron treatment Ferritin increased to 507. - check ferratin prior to discharge. #Left sided pelvic pain, episodic Urinalysis unremarkable. History of ovarian cysts or menses related. Contact SENIOR STRUCTURAL ENGINEER if TV-US i s ordered. - TV-US if worsening pain #Bipolar disorder with associated depression and anxiety Anxiety was exacerbated with episodes of dyspnea. Some anxiety about walking in the hallway . Will dose her xanax to help. - alprazolam 1mg TID prn (xanax) - fluoxetine 40mg po qday (SSRI prozac) - olanzapine 30mg po qhs (antipsychotic) # Intertriginous rash Improved. Likely suresh due to warm, moist region. If pruritus or rash develops around oth er places, can treat those as well. - Nystatin powder # Right abdominal pain, stable Episodic cramping likely due to metabolic changes with rapid weight/fluid loss. Pain has be en unchanged for 2-3 days with relatively normal LFTs. - monitor for symptomatic changes #Morbid obesity with rapid weight gain ~100 lb wt gain over 8 mo and RV dysfxn on TTE likely due to deterioration in her CV status . PT recommends home assistance and OP PT. Her sister is her caregiver. Prior to this weight gain, she had been discussing bariatric surgery. - Monitor strict I&O and daily weights - Cardiology recommended continuing the evaluation for bariatric surgery # AMARA Untreated AMARA per pt d/t claustrophobia with CPAP. Could not obtain prior sleep studies. Ov ernight O2 demonstrated 3.2 events per hour. Possible OP sleep study if new symptoms like sn oring, daytime fatigue or apneic events occur. # New right calf pain, improving Likely muscle strain/creamping related to metabolic shifts of diuresis or mechanical weight re-distributions with ambulation. Unlikely to represent anticoagulation failure as symptoms are improving and there is no erythema, SOB or other signs of DVT/PE. - Continue anticoagulation and follow closely for skin changes or new SOB #DM2 with associate diabetic neuropathy Questionably controlled DM with neuropathy controlled by gabapentin. - Moderate ISS (insulin sliding scale) - continue home gabapentin 300 mg QID #Hypothyroidism TSH in the hospital was 3.93 (WNL). - continue home thyroid 30mg po daily #Migraine Headaches Currently on topiramate for control. - topiramate 200mg po bid JEFFREY Gee-S2 [facility] PA Student Feeding: <2L fluid, Diabetic diet, >2g na Analgesia: APAP, gabapentin, hydrocodone Thromboembolic prophylaxis: Heparin/warfarin Glycemic control: moderate ISS Mobility: Encourage walking and movement Discharge: Expect hospital stay another 2-3 days with PCP FU (Dr. Goodrich) on Saturday 11/25 @ 1 1 am. - Referral to Garage Door Opener Installer Code status: FULL Associated attestation - Yosef Segovia - 11/20/2015 7:50 PM PDTI have read the licha t note by JEFFREY Diamond and agree with the assessment and plan she has outlined. Exam: General: morbidly obese, resting comfortably in bed HEENT: unable to assess JVP Lungs: clear to auscultation bilaterally Heart: rrr, no murmurs or gallops Abd: soft NT ND,+BS Ext: pitting edema, resolved mild LE erythema bilaterally Brief plan: -Now with evidence of contraction and Cr bump -Repleting potassium -Fine tuning a PO regimen for her, trying 80mg toresmide BID -INR now therapeutic, continue warfarin. Avoiding DOACs with no data studied on the obese p opulation. -Re-consult cardiology for input on a RHC -Can discharge once on stable diuretic regimen and with close follow up with PCP Yosef Segovia MD PGY-1 Internal Medicine [id number] Tyrone Adrian MD - 11/19/2015 11:51 AM PDTINPATIENT FACULTY PROGRESS NOTE - GM 1 Author; Tyrone Adrian MD Attending Physician: Tyrone Adrian MD Hospital Day: 13 PCP: Fadi Goodrich DO PCP PCP Late Entry for November 19, 2015, when I completely evaluated, examined, and documented, then 'pended' my note, & 'pasted' it below, in order to allow for the resident's autonomous comp letion of their assessment Patient's Name: Elzbieta Cristina Today's Date: 11/20/2015 I personally interviewed the patient, performed the de la cruz elements of the physical examinatio n, and personally formulated the assessment and plan with the resident. I agree with the Dr Renee Segovia & pradeep Bee's documentation, except as noted or expanded upon below. Active Issues: 1) *Anasarca 2) Acute DVT (deep venous thrombosis) -- left mid & distal femoral vein, and popliteal vei n 3) Edema and weight gain 4) Severe Morbid obesity (HCC), BMI 88 5) AMARA (obstructive sleep apnea) 6) Hypoventilation associated with obesity (HCC) 7) Type 2 diabetes mellitus (HCC) 8) Iron deficiency anemia due to chronic blood loss 9) Hypoalbuminemia (no proteinuria, need to rule out synthetic, nutrition, loss) 10) Hypothyroidism 14) Right heart failure (HCC) 15) Candidal intertrigo Planning to dial in the oral dose while still on IV (interpolating the po dose & holding a noc dose if the PO works) Tyrone Adrian MD [facility] 14C reimbursement counselor Division of Hospital Medicine Department of Medicine [facility] [address] [place] [phone] [facility] DEPARTMENT: Hosp- [id number] Place of Service: [facility] Date of Service: 11/19/2015 CSN: [id number] Modifiers:GC Resident Involved: Yes Suggested CPT: 09556 Subsequent Visit Exp Prob Foc/Mod Complexity 25 min lowerbobbi Colleen - 016 6:24 AM PDT PHYSICIAN LAWN CARE WORKER STUDENT PROGRESS NOTE FOR EDUCATIONAL PURPOSES ONLY INPATIENT PROGRESS NOTE PATIENT INFORMATION Patient Name: Elzbieta Cristina Date of : 1975 Date of Admission: 11/06/2015 PCP: Fadi Goodrich DO Room/Bed: [facility]/08/08 Attending Provider: Tyrone Adrian MD Encounter Information Date of Service: 11/08/2015 Hospital Day #: 13 Last 24hrs: No acute events overnight. Subjective - Left groin pain still present in addition to right abdominal cramping. Right calf only hu rts with ambulation. Objective PHYSICAL EXAMINATION Last 24 hour min/max Temp: 36.7 C (98.1 F) Temp Min: 36.4 C (97.5 F) Max: 36.7 C (98.1 F) Pulse: 107 Pulse Min: 105 Max: 107 Resp: 20 Resp Min: 17 Max: 20 BP: 111/65 mmHg BP Min: 107/68 Max: 127/82 SpO2: 92 % SpO2 Min: 92 % Max: 95 % Body mass index is 79.29 kg/(m^2). WT change: Net: -58 lb 11/05: 473 lb 11/18: 415 lb Intake/Output Summary (Last 24 hours) at 11/19/15 0733 Last data filed at 11/19/15 0655 Gross per 24 hour Intake 2171 ml Output 5725 ml Net -3554 ml Constitutional: Pleasant, non-toxic appearing female in NAD. HEENT: NC/AT, EOMI, no icterus, MMM, neck supple FROM. CV: Tachy, regular rhythm, no m/r/g. Radial and pedal pulses 2+ bilat. Pulmonary/Chest: CTA. No crackles. No respiratory distress. Abdominal: Soft. +BS. Tender over ventral hernia on right abd, and on LLQ, no CVA tendernes s. No rebound or guarding. Musculoskeletal: bilat LE tender to palpation, strength equal bilaterally. Right distal olga lidia f tender to palpation. No erythema. Neuro: Normal strength, intact distal sensation to light touch. CN II- XII intact. Skin: Warm, dry. Scattered light pink chaffing under pannus. Some skin breakdown in places, no ulceration or purulent drainage. LE no longer erythematous. Psych: normal mood and affect DATA Chemistries: Last 72 Hours (or 3 results) - Refreshable Recent Labs 11/17/15 0539 11/18/15 0625 11/18/15 1425 11/19/15 0941 11/19/15 1258 11/19/15 1420 NA 137 -- 138 -- -- -- -- -- 136 K 3.6 -- 3.6 -- 3.0* -- -- -- 2.7* CL 108 -- 106 -- -- -- -- -- 98 BICARB 22 -- 23 -- -- -- -- -- 27 BUN 28* -- 31* -- -- -- -- -- 42* CR 0.86 -- 0.86 -- -- -- -- -- 1.03 GLU 136* < > 148* < > -- < > 153* 161* 214* CA 9.5 -- 9.1 -- -- -- -- -- 9.5 MG 2.3 -- 2.1 -- 2.2 -- -- -- 2.2 < > = values in this interval not displayed. INR: 2.59 Mag 2.2 K: 2.7 ASSESSMENT/PLAN Elzbieta Cristina, a 40 year old morbidly obese woman with DM2 and untreated AMARA who present ed with severe YO, 100 lb unintended weight gain, found to have a LLE DVT, new RV dysfuncti on and anasarca, currently being bridged to coumadin and diuresed with thoughts of RHC or V/ Q study post diuresis. # Decompensated right sided heart failure complicated by dyspnea on exertion and anasarca TTE showed mod LV dysfunction with RVSP 28. Cardiology to re-evaluate for RHC once more euv olemic or Cr bumps. May consider V/Q after further diuresis if CTEPH (chronic thromboemboli c pulmonary HTN) suspected. Current daily duresis goal 2-4 L / day. Trial of 2.5 mg metolazo ne + 120 IV lasix in AM with 80 mg Torsemide in afternoon. If inadequate UOP, can transition back to 120 IV lasix PM. With increases in dosing, will more closely monitor renal fxn. K h as been dropping with the addition of metolazone so will begin regular scheduled dosing of o ral K TID. - Cardiology involved: Recs appreciated - AM BMP, PM K + mag - Metolazone 2.5 mg DAILY + 120 mg lasix AM - 80 mg PO torsemide mid day. If low response, can transition back to PM IV lasix - 40 meq PO K TID - Monitor strict I&O's + daily weights - Continue PO Mag oxide tab daily # LLE DVT and presumed PE US confirmed left mid & distal femoral vein and popliteal thrombosis. Uncertain if this is idiopathic vs provoked d/t hx of surgery 8 months ago and increasingly sedentary lifestyle. INR currently therapeutic and pharm monitoring. Goal to maintain INR 2-3. Discussed risk/be nefit of warfarin vs other direct oral anticoagulat agents (i.e FXa inhibitors). - Pharmacy following - daily INR # Iron deficiency anemia, chronic Borderline microcytic anemia with Iron 37, TIBC 11, Ferritin 18. Unlikely from an occult GI bleed. Treated with 5 days of IV iron. - - check ferratin prior to discharge. #Left sided pelvic pain, episodic Urinalysis unremarkable. History of ovarian cysts or menses related. Contact SENIOR STRUCTURAL ENGINEER if TV-US i s ordered. - TV-US if worsening pain #Bipolar disorder with associated depression and anxiety Anxiety was exacerbated with episodes of dyspnea. Some anxiety about walking in the hallway . Will dose her xanax to help. - alprazolam 1mg TID prn (xanax) - fluoxetine 40mg po qday (SSRI prozac) - olanzapine 30mg po qhs (antipsychotic) # Intertriginous rash Improved. Likely suresh due to warm, moist region. If pruritus or rash develops around oth er places, can treat those as well. - Nystatin powder # Right abdominal pain, stable Episodic cramping likely due to metabolic changes with rapid weight/fluid loss. Pain has be en unchanged for 2-3 days with relatively normal LFTs. - monitor for symptomatic changes #Morbid obesity with rapid weight gain ~100 lb wt gain over 8 mo and RV dysfxn on TTE likely due to deterioration in her CV status . PT recommends home assistance and OP PT. Her sister is her caregiver. Prior to this weight gain, she had been discussing bariatric surgery. - Monitor strict I&O and daily weights # AMARA Untreated AMARA per pt d/t claustrophobia with CPAP. Could not obtain prior sleep studies. Ov ernight O2 demonstrated 3.2 events per hour. - Follow for AMARA symptoms like fatigue, snoring # New right calf pain, improving Likely muscle strain/creamping related to metabolic shifts of diuresis or mechanical weight re-distributions with ambulation. Unlikely to represent anticoagulation failure as symptoms are improving and there is no erythema, SOB or other signs of DVT/PE. - Continue anticoagulation and follow closely for skin changes or new SOB #DM2 with associate diabetic neuropathy Questionably controlled DM with neuropathy controlled by gabapentin. - Moderate ISS (insulin sliding scale) - continue home gabapentin 300 mg QID #Hypothyroidism TSH in the hospital was 3.93 (WNL). - continue home thyroid 30mg po daily #Migraine Headaches Currently on topiramate for control. - topiramate 200mg po bid JEFFREY Gee-S2 [facility] PA Student Feeding: <2L fluid, Diabetic diet, >2g na Analgesia: APAP, gabapentin, hydrocodone Thromboembolic prophylaxis: Heparin/warfarin Glycemic control: moderate ISS Mobility: Encourage walking and movement Discharge: Expect hospital stay another 3-5 days with diuresis until more euvolemic and R h eart cath can be completed. Code status: FULL Associated attestation - Yosef Segovia - 11/19/2015 7:38 PM PDTI have read the excellen t note by PA pradeep Diamond and agree with the assessment and plan she has outlined. Exam: General: morbidly obese, resting comfortably in bed HEENT: unable to assess JVP Lungs: clear to auscultation bilaterally Heart: rrr, no murmurs or gallops Abd: soft NT ND,+BS Ext: pitting edema, improving mild LE erythema bilaterally, ttp in the in left groin Skin: Erythematous line across proximal tibia, erythematous beefy erythematous region with circumscribed borders and satellite patches under left pannus Brief plan: -Continued diuresis with PO metolazone + IV Lasix in AM, attempting to find response to PO torsemide dose in PM, not a great output from 80mg -Still no signs of bump in Cr or contraction alkalosis -INR now therapeutic, continue warfarin. Avoiding DOACs with no data studied on the obese p opulation. -Consider -Will talk to cardiology again once we have established euvolemia. Considering RHC +/- VQ s can. Yosef Segovia MD PGY-1 Internal Medicine [id number] Tyrone Adrian MD - 11/18/2015 2:01 PM PDTINPATIENT FACULTY PROGRESS NOTE - GM 1 Author; Tyrone Adrian MD Attending Physician: Tyrone Adrian MD Hospital Day: 12 PCP: Fadi Goodrich DO PCP PCP Patient's Name: Elzbieta Cristina Today's Date: 11/18/2015 I personally interviewed the patient, performed the de la cruz elements of the physical examinatio n, and personally formulated the assessment and plan with the resident. I agree with the Dr Renee Segovia's documentation, except as noted or expanded upon below. Active Issues: 1) *Anasarca 2) Acute DVT (deep venous thrombosis) -- left mid & distal femoral vein, and popliteal vei n 3) Edema and weight gain 4) Severe Morbid obesity (HCC), BMI 88 5) AMARA (obstructive sleep apnea) 6) Hypoventilation associated with obesity (HCC) 7) Type 2 diabetes mellitus (HCC) 8) Iron deficiency anemia due to chronic blood loss 9) Hypoalbuminemia (no proteinuria, need to rule out synthetic, nutrition, loss) 10) Hypothyroidism 14) Right heart failure (HCC) 15) Candidal intertrigo Tyrone Adrian MD [facility] 14C reimbursement counselor Division of Hospital Medicine Department of Medicine [facility] [address] [place] [phone] [facility] DEPARTMENT: Hosp- [id number] Place of Service: Date of Service: 11/18/2015 CSN: [id number] Modifiers:GC Resident Involved: Yes Suggested CPT: 46453 Subsequent Visit Exp Prob Foc/Mod Complexity 25 min osef Segovia T - 11/17 6:42 AM PDT General Internal Medicine 1 Progress Note 24 Hour Events: -No events overnight -Feels that she is still urinating a lot, -1.8L yesterday -Nurse told her she might be starting her period -Has not had menstrual bleeding in 3 months -Left groin pain could be consistent with cramping -Discontinued heparin gtt Physical Examination: Last 24 hour min/max Temp: 36.8 C (98.2 F) Temp Min: 36.6 C (97.9 F) Max: 36.8 C (98.2 F) Pulse: 113 Pulse Min: 98 Max: 113 Resp: 18 Resp Min: 18 Max: 20 BP: 123/68 mmHg BP Min: 115/67 Max: 131/73 SpO2: 96 % SpO2 Min: 95 % Max: 96 % Body mass index is 79.29 kg/(m^2). Intake/Output Summary (Last 24 hours) at 11/18/15 1125 Last data filed at 11/18/15 1000 Gross per 24 hour Intake 1727.76 ml Output 3805 ml Net -2077.24 ml General: morbidly obese, resting comfortably in bed HEENT: unable to assess JVP Lungs: clear to auscultation bilaterally Heart: rrr, no murmurs or gallops Abd: soft NT ND,+BS Ext: pitting edema, improving mild LE erythema bilaterally, ttp in the in left groin Skin: Erythematous line across proximal tibia, erythematous beefy erythematous region with circumscribed borders and satellite patches under left pannus Laboratory Interpretation: Chemistries: Last 72 Hours (or 3 results): Recent Labs 11/16/15 0308 11/17/15 0539 11/17/15 2215 11/18/15 0625 11/18/15 0856 NA 137 -- 137 -- -- 138 -- K 3.4 -- 3.6 -- -- 3.6 -- CL 104 -- 108 -- -- 106 -- BICARB 26 -- 22 -- -- 23 -- BUN 29* -- 28* -- -- 31* -- CR 0.96 -- 0.86 -- -- 0.86 -- GLU 137* < > 136* < > 163* 148* 177* CA 9.3 -- 9.5 -- -- 9.1 -- MG 2.3 -- 2.3 -- -- 2.1 -- < > = values in this interval not displayed. INR 2.64 Assessment and Plan # Decompensated right sided heart failure TTE showed moderate RV dysfunction. Adding on metolazone 2.5mg to IV Lasix 120mg BID to inc rease rate of diuresis. Still no evidence of Cr or bicarb bump. Will talk to cardiology for RHC once euvolemic. - metolazone 2.5mg + IV furosemide 120mg BID - Daily BMP, PM K and Mg - Monitor strict I&O's - Daily weights - RHC prior to discharge #LLE DVT Asymmetric LE pain and swelling was suspicious for DVT and confirmed with US. Began heparin /warfarin bridge with a goal INR of 2-3. INR therapeutic for 2 days in a row, can d/c hepari n gtt today. - D/c heparin gtt - Continue warfarin dosed per pharmacy - daily INR # Iron deficiency anemia, chronic Borderline microcytic anemia with Iron 37, TIBC 11, Ferritin 18. Unlikely from an occult GI bleed. More likely nutrition or menses related. Due to oral iron causing constipation, will treat with IV iron, completed 5 doses. -Recheck ferritin prior to discharge # Rash under skin folds Likely suresh due to warm, moist region. Will treat at current site of irritation. If prur itus or rash develops around other places, can treat those as well. - Nystatin powder #DM2 with associate diabetic neuropathy Questionably controlled DM with neuropathy controlled by gabapentin. - Moderate ISS (insulin sliding scale) - continue home gabapentin 300 mg QID #Bipolar disorder with associated depression and anxiety Anxiety is exacerbated with episodes of dyspnea and CP. Continue home medications. - alprazolam 1mg TID prn (xanax) - fluoxetine 40mg po qday (SSRI prozac) - olanzapine 30mg po qhs (antipsychotic) #Hypothyroidism TSH in the hospital was 3.93 (WNL). - continue home thyroid 30mg po bid #Migraine Headaches Currently on topiramate for control. - topiramate 200mg po bid Pt was discussed with my attending Dr Adrian who agrees with my plan. Yosef Segovia MD PGY-1 Internal Medicine [id number] signed by Yosef Segovia at 11/18/2015 11:52 AM Tyrone Currie MD - 11/17/2015 3:09 PM PDTINPATIENT FACULTY PROGRESS NOTE - GM 1 Author; Tyrone Adrian MD Attending Physician: Tyrone Adrian MD Hospital Day: 11 PCP: Fadi Goodrich DO PCP PCP Patient's Name: Elzbieta Cristina Today's Date: 11/17/2015 I personally interviewed the patient, performed the de la cruz elements of the physical examinatio n, and personally formulated the assessment and plan with the resident. I agree with the Dr Renee Segovia & pradeep Diamond' documentation, except as noted or expanded upon below. Active Issues: X) LLQ pain 1) *Anasarca 2) Acute DVT (deep venous thrombosis) -- left mid & distal femoral vein, and popliteal vei n 3) Edema and weight gain 4) Severe Morbid obesity (HCC), BMI 88 5) AMARA (obstructive sleep apnea) 6) Hypoventilation associated with obesity (HCC) 7) Type 2 diabetes mellitus (HCC) 8) Iron deficiency anemia due to chronic blood loss 9) Hypoalbuminemia (no proteinuria, need to rule out synthetic, nutrition, loss) 10) Hypothyroidism 14) Right heart failure (HCC) 15) Candidal intertrigo Tyrone Adrian MD [facility] 14C reimbursement counselor Division of Hospital Medicine Department of Medicine [facility] [address] [place] [phone] [facility] DEPARTMENT: Hosp- [id number] Place of Service: - [id number] Date of Service: 11/17/2015 CSN: [id number] Modifiers:GC Resident Involved: Yes Suggested CPT: 26248 Subsequent Visit Exp Prob Foc/Mod Complexity 25 min lColleen goff - 016 6:40 AM PDT PHYSICIAN LAWN CARE WORKER STUDENT PROGRESS NOTE FOR EDUCATIONAL PURPOSES ONLY INPATIENT PROGRESS NOTE PATIENT INFORMATION Patient Name: Elzbieta Cristina Date of : 1975 Date of Admission: 11/06/2015 PCP: Fadi Goodrich DO Room/Bed: Attending Provider: Tyrone Adrian MD Encounter Information Date of Service: 11/08/2015 Hospital Day #: 11 Last 24hrs: No acute events overnight. Subjective Right calf pain is slightly improving. Objective PHYSICAL EXAMINATION Last 24 hour min/max Temp: 36.6 C (97.9 F) Temp Min: 36.3 C (97.3 F) Max: 36.8 C (98.2 F) Pulse: 98 Pulse Min: 86 Max: 114 Resp: 20 Resp Min: 20 Max: 24 BP: 131/64 mmHg BP Min: 127/67 Max: 153/116 SpO2: 95 % SpO2 Min: 93 % Max: 96 % Body mass index is 79.59 kg/(m^2). WT change: Net: -54 lb 11/05: 473 lb 11/16: 419 lb Intake/Output Summary (Last 24 hours) at 11/17/15 0922 Last data filed at 11/17/15 0900 Gross per 24 hour Intake 1895.5 ml Output 3300 ml Net -1404.5 ml Constitutional: Pleasant, non-toxic appearing female in NAD. HEENT: Head: Normocephalic and atraumatic. Eyes: EOMI, no scleral icterus. Mouth/Throat: or opharynx clear, mmm. Neck : Full ROM. Neck supple. CV: Tachy, regular rhythm, no m/r/g. Radial and pedal pulses 2+ bilat. Pulmonary/Chest: CTA. No crackles. No respiratory distress. Abdominal: Soft. Bowel sounds are normal. Tender over ventral hernia on right abd, and on L LQ, no CVA tenderness. No rebound and no guarding. Musculoskeletal: bilat LE tender to palpation, strength equal bilaterally. Right distal olga lidia f tender to palpation. No erythema, soft, warm, no streaking. Neuro: Normal strength, intact distal sensation to light touch. CN II- XII intact. Skin: Warm, dry. Red, beefy erythematous regions with circumscribed borders under both bila teral pannus. Some skin breakdown in places, no ulceration or purulent drainage. Psych: normal mood and affect DATA UA Dip: Negative Urine: unremarkable Chemistries: Last 72 Hours (or 3 results) - Refreshable Recent Labs 11/15/15 0549 11/16/15 0308 11/16/15 1824 11/16/15 2224 11/17/15 0539 NA 137 -- 137 -- -- -- 137 K 3.5 -- 3.4 -- -- -- 3.6 CL 106 -- 104 -- -- -- 108 BICARB 23 -- 26 -- -- -- 22 BUN 26* -- 29* -- -- -- 28* CR 0.84 -- 0.96 -- -- -- 0.86 GLU 147* < > 137* < > 147* 166* 136* CA 9.7 -- 9.3 -- -- -- 9.5 MG 2.2 -- 2.3 -- -- -- 2.3 < > = values in this interval not displayed. INR: 2.07 Heparin 0.53 Mag 2.3 K 3.6 ASSESSMENT/PLAN Elzbieta Cristina, a 40 year old morbidly obese woman with DM2 and untreated AMARA who present ed with severe YO, 100 lb unintended weight gain, found to have a LLE DVT, new RV dysfuncti on and anasarca, currently being bridged to coumadin and diuresed with thoughts of R H cath or V/Q study post diuresis. # Decompensated right sided heart failure complicated by dyspnea on exertion and anasarca TTE showed mod LV dysfunction with RVSP 28 with suspicion of AMARA induced pulmonary HTN. Car diology thought diastolic HF more likely, not pulmonary HTN and encourage continued diuresis , low salt diet and wt loss. They didn't think R heart cath was appropriate at this time but want to re-consider once she reaches a suspected dry weight around 390-400 lbs or her Cr bu mps. She would also have to be down another 20 lbs for the procedure. Undergoing diuresis w ith a goal of 2-4 L / day. Flow is currently at the lower end of goal and will add another P O dose of lasix today at noon and if no response, will give a thiazide (Metolazone) to get b jacki diuresis. With increases in dosing, will more closely monitor renal fxn. Oral K if K < 4.0. - Cardiology involved: Recs appreciated - AM BMP + mag - PO torsemide 60 mg at noon - Metolazone 2.5 mg And 120 IV lasix in afternoon if no increase UOP with torsemide. - Monitor Mag and K levels this afternoon - 40 meq PO K - After further diuresis, we may consider a V/Q to look for CTEPH (chronic thromboembolic p ulmonary HTN) - Monitor strict I&O's - Daily weights - Continue PO Mag oxide tab daily # LLE DVT and presumed PE US confirmed left mid & distal femoral vein and popliteal thrombosis. Worsening SOB makes s ubsequent PEs likely. Uncertain if this is idiopathic vs provoked d/t hx of surgery 8 months ago and increasingly sedentary lifestyle. INR currently therapeutic at 2.07 on 15 mg Warfa rin. Goal to maintain INR 2-3. Discussed risk/benefit of warfarin vs other direct oral antic oagulat agents (i.e FXa inhibitors). - Pharmacy following - Per phram, continue heparin until INR 2-3 for 24hrs. Possible d/c heparin on 11/17 - daily INR and heparin levels # Iron deficiency anemia, chronic Borderline microcytic anemia with Iron 37, TIBC 11, Ferritin 18. Unlikely from an occult GI bleed. More likely nutrition or menses related. Due to oral iron causing constipation, will treat with IV iron. - Iron sucrose 200 mg IV daily x 5 days (day 11/28) #Left sided pelvic pain, episodic Urinalysis unremarkable. Could possibly be ovary related with history of cysts. Will order a TV-US as it has been ongoing for 4-5 days. - TV-US #Bipolar disorder with associated depression and anxiety Anxiety is exacerbated with episodes of dyspnea and CP. Continue home medications. Some anx iety about walking in the hallway. Will dose her xanax to help. - alprazolam 1mg TID prn (xanax) - fluoxetine 40mg po qday (SSRI prozac) - olanzapine 30mg po qhs (antipsychotic) #Morbid obesity with rapid weight gain ~100 lb wt gain over 8 mo and RV dysfxn on TTE likely due to deterioration in her CV status . This can present with anasarca and overtime, progress to LE skin changes/breakdown. Other possible differentials include non-pathological weight gain from inactivity following surger ies, torsemide resistance or pickwickian syndrome (OHS). PT consulted and recommends home as sistance and outpatient PT. Her sister is her caregiver. Prior to this weight gain, she had been discussing bariatric surgery. - Contact PT to order a large chair so she can sit off of her bed at times. - Monitor strict I&O - Monitor daily weight - encourage walking and movement # Intertriginous rash Likely suresh due to warm, moist region. Will treat at current sites of irritation under s kin folds. If pruritus or rash develops around other places, can treat those as well. Sympto matic improvement with nystatin and pillow cases. - Nystatin powder #Bilateral LE swelling and skin changes Likely a combination of decompensated R HF and chronic venous insufficiency, which can lead to heaviness, swelling, leg pain and skin changes. Unlikely related to cellulitis. - Elevate legs for symptom relief - 100 mg IV lasix BID - APAP TID, ice, heat - Oxycodone 5-10 mg q 4hrs PRN pain # Right abdominal pain, stable Episodic cramping likely due to metabolic changes with rapid weight/fluid loss. LFTs with t race elevation with low albumin. In setting of morbid obesity and DM2, may consider mild non -alcoholic fatty liver dz (hepatic steatosis) or as a complication of right sided HF. Since admission, Ast increased from 25-->47, Alk Phos 75-->101, albumin 3.2. Pain has been unchang ed for 2-3 days with relatively normal LFTs. - monitor for symptomatic changes # AMARA Untreated AMARA. Could not obtain prior sleep studies. No CPAP due to claustrophobia.Weight g ain could have worsened AMARA and caused pulmonary/cardiac problems. Overnight O2 monitoring s howed an average of 3.2 events per hour, which is in the normal range on the AHI index. (nor mal <5/hr) with 97% of the time in the 90s. - Follow for AMARA symptoms like fatigue, snoring # New right calf pain, improving Likely muscle strain/creamping related to metabolic shifts of diuresis or mechanical weight re-distributions with ambulation. Unlikely to represent anticoagulation failure as symptoms are improving and there is no erythema, SOB or other signs of DVT/PE. Anticoagulation is no w therapeutic at INR 2.07. - Consider US of calf- clot vs cyst vs lipoma vs muscle - Continue anticoagulation and follow closely for skin changes or new SOB - tx with conservative mgmt- heat, ice #DM2 with associate diabetic neuropathy Questionably controlled DM with neuropathy controlled by gabapentin. - Moderate ISS (insulin sliding scale) - continue home gabapentin 300 mg QID #Hypothyroidism TSH in the hospital was 3.93 (WNL). - continue home thyroid 30mg po daily #Migraine Headaches Currently on topiramate for control. - topiramate 200mg po bid JEFFREY Gee-S2 [facility] PA Student Feeding: <2L fluid, Diabetic diet, >2g na Analgesia: APAP, gabapentin, hydrocodone Thromboembolic prophylaxis: Heparin/warfarin Glycemic control: moderate ISS Mobility: Encourage walking and movement Discharge: Expect hospital stay another 3-5 days with diuresis until more euvolemic and R h eart cath can be completed. Code status: FULL Associated attestation - Yosef Segovia - 11/17/2015 12:58 PM PDTI have read the ceferinoen t note by PA student Dara and agree with the assessment and plan he has outlined. Exam: General: morbidly obese, resting comfortably in bed HEENT: unable to assess JVP Lungs: clear to auscultation bilaterally Heart: rrr, no murmurs or gallops Abd: soft NT ND,+BS Ext: pitting edema, improving mild LE erythema bilaterally, ttp in the in left groin Skin: Erythematous line across proximal tibia, erythematous beefy erythematous region with circumscribed borders and satellite patches under left pannus Brief plan: -Still no signs of bump in Cr or contraction alkalosis, will attempt a new dose of PO tiny mide today as see if she responds adequately. If not will redose with IV furosemide. -Persistent R pelvic pain. UA completely normal, no concern for msk pain with normal hip ex am. Does have history of ovarian cysts. Patient states her bimanual exam has been challengin g in the past. Opting for transvaginal US to evaluate for etiology of pain. -INR now therapeutic, can likely still bridging with heparin. Avoiding DOACs with no data s tudied on the obese population. If warfarin dose continues to climb, will have to dose twice a day -Continue IV iron 200mg (day 11/28) -Will talk to cardiology again once we have established euvolemia. Considering RHC +/- VQ s can Yosef Segovia MD PGY-1 Internal Medicine [id number] Tyrone Adrian MD - 11/16/2015 4:59 PM PDTINPATIENT FACULTY PROGRESS NOTE - GM 1 Author; Tyrone Adrian MD Attending Physician: Tyrone Adrian MD Hospital Day: 10 PCP: Fadi Goodrich DO PCP PCP Patient's Name: Elzbieta Cristina Today's Date: 11/16/2015 I personally interviewed the patient, performed the de la cruz elements of the physical examinatio n, and personally formulated the assessment and plan with the resident. I agree with the Dr Renee Hair (almost complete) and student Dara' documentation, except as noted or expanded up on below. Review of systems notable for: her continued LLQ tenderness. We discussed potential ovaria n process (e.g. Cyst), but at this point she declined a bi-manual exam Exam notable for: BP 127/67 | Pulse 110 | Temp (Src) 36.3 C (97.3 F) (Oral) | RR 24 | Ht 1.549 m (5' 1") | Wt 190.964 kg (421 lb) | SpO2 96% | BMI 79.59 kg/(m^2) Comfortable JVP not visible Lungs, overall clear Cor no mur Abd: obese, NT (except under her panus along L suprapubic/inguinal Ext: no pain on flex/ext, int/ext rotation of L hip, ++ edema/brawny Active Issues: 1) *Anasarca 2) Acute DVT (deep venous thrombosis) -- left mid & distal femoral vein, and popliteal vei n 3) Edema and weight gain 4) Severe Morbid obesity (HCC), BMI 88 5) AMARA (obstructive sleep apnea) 6) Hypoventilation associated with obesity (HCC) 7) Type 2 diabetes mellitus (HCC) 8) Iron deficiency anemia due to chronic blood loss 9) Hypoalbuminemia (no proteinuria, need to rule out synthetic, nutrition, loss) 10) Hypothyroidism 14) Right heart failure (HCC) 15) Candidal intertrigo Tyrone Adrian MD [facility] 14C reimbursement counselor Division of Hospital Medicine Department of Medicine [facility] [address] [place] [phone] [facility] DEPARTMENT: Hosp- [phone] Place of Service: - Date of Service: 11/16/2015 CSN: [id number] Modifiers:GC Resident Involved: Yes Suggested CPT: 12250 Subsequent Visit Exp Prob Foc/Mod Complexity 25 min olleen Diamond - 016 6:43 AM PDT PHYSICIAN LAWN CARE WORKER STUDENT PROGRESS NOTE FOR EDUCATIONAL PURPOSES ONLY INPATIENT PROGRESS NOTE PATIENT INFORMATION Patient Name: Elzbieta Cristina Date of : 1975 Date of Admission: 11/06/2015 PCP: Fadi Goodrich DO Room/Bed: [address] [place] [address] Attending Provider: Tyrone Adrian MD Encounter Information Date of Service: 11/08/2015 Hospital Day #: 10 Last 24hrs: No acute events overnight. Subjective Right calf is still painful. She would really like a chair to sit up and thinks some of her pain is because she has to have her legs bent when she lays down all day. - Denies CP, SOB, other abdominal pain. Objective PHYSICAL EXAMINATION Last 24 hour min/max Temp: 36.7 C (98.1 F) Temp Min: 36.7 C (98.1 F) Max: 36.7 C (98.1 F) Pulse: 105 Pulse Min: 103 Max: 112 Resp: 24 Resp Min: 22 Max: 24 BP: 111/70 mmHg BP Min: 111/70 Max: 135/91 SpO2: 96 % SpO2 Min: 94 % Max: 99 % Body mass index is 80.57 kg/(m^2). WT change: Net: -52 lb 11/05: 473 lb 11/12: 428 lb 11/13: 418 lb 11/14: 426 lb 11/15: 421 lb Intake/Output Summary (Last 24 hours) at 11/16/15 1324 Last data filed at 11/16/15 1216 Gross per 24 hour Intake 1858 ml Output 3775 ml Net -1917 ml Constitutional: Pleasant, non-toxic appearing female in NAD. HEENT: Head: Normocephalic and atraumatic. Eyes: EOMI, no scleral icterus. Mouth/Throat: or opharynx clear, mmm. Neck : Full ROM. Neck supple. Unable to appreciate JVP. CV: Tachy, regular rhythm, no m/r/g. Radial and pedal pulses 2+ bilat. Pulmonary/Chest: CTA. No crackles. No respiratory distress. Abdominal: Soft. Bowel sounds are normal. Tender over ventral hernia on right abd, and on L LQ, no CVA tenderness. No rebound and no guarding. Musculoskeletal: bilat LE tender to palpation, strength equal bilaterally. Right distal olga lidia f tender to palpation. 1/2'' nodule felt posteriorly. No erythema, soft, warm, no streaking. Positive watson's sign. Neuro: A & O to person, place, month and situation. Normal strength, intact distal sensatio n to light touch. CN II- XII intact. Skin: Warm, dry. Red, beefy erythematous regions with circumscribed borders under both bila teral pannus, improving. Some skin breakdown in places, no ulceration or purulent drainage. Psych: normal mood and affect DATA Chemistries: Last 72 Hours (or 3 results) - Refreshable Recent Labs 11/14/15 0419 11/15/15 0549 11/16/15 0308 11/16/15 0836 11/16/15 1326 NA 138 -- 137 -- 137 -- -- K 3.4 -- 3.5 -- 3.4 -- -- CL 105 -- 106 -- 104 -- -- BICARB 24 -- 23 -- 26 -- -- BUN 25* -- 26* -- 29* -- -- CR 0.88 -- 0.84 -- 0.96 -- -- GLU 152* < > 147* < > 137* 173* 126* CA 9.4 -- 9.7 -- 9.3 -- -- MG 2.4 -- 2.2 -- 2.3 -- -- < > = values in this interval not displayed. INR: 1.83 from 1.79 Heparin 0.51 Mag 2.3 K 3.4 ASSESSMENT/PLAN Elzbieta Cristina, a 40 year old morbidly obese woman with DM2 and untreated AMARA who present ed with severe YO, 100 lb unintended weight gain, found to have a LLE DVT, new RV dysfuncti on and anasarca, currently being bridged to coumadin and diuresed with thoughts of R H cath or V/Q study post diuresis. # New right calf pain Likely muscle strain/creamping related to metabolic shifts of diuresis or mechanical weight re-distributions with ambulation. Because of VTE, could also represent treatment failure, barron juarez at this point and without signs of new PEs, would not change therapy. Will continue to anticoagulate until therapeutic. Worsening tenderness, positive homans sign and nodule felt (no erythema) increases suspicion of new VTE. - Consider US of calf- clot vs cyst vs lipoma vs muscle - Continue anticoagulation and follow closely for skin changes or new SOB - tx with conservative mgmt- heat, ice # Decompensated right sided heart failure complicated by dyspnea on exertion and anasarca TTE showed mod LV dysfunction with RVSP 28 with suspicion of AMARA induced pulmonary HTN. [place] hansen postulated a more likely alternative explanation of her symptoms is diastolic heart failure (not pulm HTN) and thus would continue to encourage weight loss and a low sodium/flu id restricted diet. Pulm HTN would be less likely to have such improved respiratory symptoms with diuresis. Cardiology did not think a R heart cath was appropriate at this time but cou ld be re-considered once we diurese further toward her suspected dry weight of 390-100 or un til her Cr bumps. She would also have to be down another 20 lbs for the procedure. Undergoin g diuresis with a goal of 2-4 L / day. Flow is currently at the lower end of where we would like so if she continues to have lower output on the increased (120 mg) lasix, will consider adding HCTZ tomorrow. Continue to watch Mag and K levels and provide oral K if <4.0. Will monitor volume status via HCO3 and kidney function. - Cardiology involved: Rec's appreciated - After further diuresis, we may consider a V/Q to look for CTEPH (chronic thromboembolic p ulmonary HTN) - 120 mg IV Lasix BID - 60 mEq Oral K - AM BMP + Mag - PM serum K lab - Monitor strict I&O's - Daily weights - Continue PO Mag oxide tab daily # LLE DVT and presumed PE US confirmed left mid & distal femoral vein and popliteal thrombosis. Worsening SOB makes s ubsequent PEs likely. Uncertain if this is idiopathic vs provoked d/t hx of surgery 8 months ago and increasingly sedentary lifestyle. Began heparin/warfarin bridge with a goal INR of 2-3. Initially slow INR progression could be due to salads or edema. Suspect long-term prop hylaxis given hx of prior embolic stroke. Discussed risk/benefit of warfarin vs other direct oral anticoagulat agents (i.e FXa inhibitors). - Pharmacy following - Continue heparin until warfarin is therapeutic - daily INR and heparin levels # Iron deficiency anemia, chronic Borderline microcytic anemia with Iron 37, TIBC 11, Ferritin 18. Unlikely from an occult GI bleed. More likely nutrition or menses related. Due to oral iron causing constipation, will treat with IV iron. - Iron sucrose 200 mg IV daily x 5 days (day 4/5) # Right sided abdominal cramping Acute onset, LFTs mildly elevated with low albumin. In setting of morbid obesity and DM2, m ay consider mild non-alcoholic fatty liver dz (hepatic steatosis) or as a complication of ri ght sided HF. Since admission, Ast increased from 25-->47, Alk Phos 75-->101, albumin 3.2. P ain has been unchanged for 2-3 days with relatively normal LFTs. May consider kidney/ureter stones (though normal UA) or ovarian cyst. - If pain worsens, may consider TV-US or pelvic CT if US not adequate. #Morbid obesity with rapid weight gain With an ~100 lb wt gain over 8 mo and RV dysfxn on TTE, sudden wt gain is most likely due t o deterioration in her CV status. This can present with anasarca and overtime, progress to L E skin changes/breakdown. Other possible differentials include non-pathological weight gain from inactivity following surgeries, torsemide resistance or pickwickian syndrome (OHS). PT consulted and recommends home assistance and outpatient PT. Her sister is her caregiver. Kathryn or to this weight gain, she had been discussing bariatric surgery. - Contact PT to order a large chair so she can sit off of her bed at times. - Monitor strict I&O - Monitor daily weight - encourage walking and movement # Intertriginous rash Likely suresh due to warm, moist region. Will treat at current sites of irritation under s kin folds. If pruritus or rash develops around other places, can treat those as well. Sympto matic improvement with nystatin and pillow cases. - Nystatin powder #Bilateral LE swelling and skin changes Likely a combination of decompensated R HF and chronic venous insufficiency, which can lead to heaviness, swelling, leg pain and skin changes. Unlikely related to cellulitis. - Elevate legs for symptom relief - 100 mg IV lasix BID - APAP TID, ice, heat - Oxycodone 5-10 mg q 4hrs PRN pain # AMARA Untreated AMARA. Could not obtain prior sleep studies. No CPAP due to claustrophobia.Weight g ain could have worsened AMARA and caused pulmonary/cardiac problems. Overnight O2 monitoring s howed an average of 3.2 events per hour, which is in the normal range on the AHI index. (nor mal <5/hr) with 97% of the time in the 90s. - Follow for AMARA symptoms like fatigue, snoring #Mild Leukocytosis, resolved Mildly elevated WBC on 11/12 (11.11) with tachy improved with WBC WNL 10.45 on 11/14. Afebril e. Likely associated with her diaphoresis and chills that occurred the night of the . No new sxs. - obtain new CBC if signs of infection arise. #DM2 with associate diabetic neuropathy Questionably controlled DM with neuropathy controlled by gabapentin. - Moderate ISS (insulin sliding scale) - continue home gabapentin 300 mg QID #Bipolar disorder with associated depression and anxiety Anxiety is exacerbated with episodes of dyspnea and CP. Continue home medications. - alprazolam 1mg TID prn (xanax) - fluoxetine 40mg po qday (SSRI prozac) - olanzapine 30mg po qhs (antipsychotic) #Hypothyroidism TSH in the hospital was 3.93 (WNL). - continue home thyroid 30mg po daily #Migraine Headaches Currently on topiramate for control. - topiramate 200mg po bid JEFFREY Gee-S2 [facility] PA Student Feeding: <2L fluid, Diabetic diet, >2g na Analgesia: APAP, gabapentin, hydrocodone Thromboembolic prophylaxis: Heparin/warfarin Glycemic control: moderate ISS Mobility: Encourage walking and movement Discharge: Expect hospital stay another 3-5 days with diuresis until more euvolemic and R h eart cath can be completed. Code status: FULL Associated attestation - Magdalene Hair MD, MSc - 11/16/2015 5:20 PM PDTI have read the not e by PA student Colleen Diamond and my additions or clarifications are included below. Our plan today in brief for Ms Cristina: -- coordinate cardiac care follow up with the assistance of Grisel Pearl. Patient lives i [facility] which is quite a distance to travel to and from [place]. We would ideally arran ge cardiac follow up closer to her home. -- continue diuresis with 120mg BID lasix, daily bmp & mag, replete electrolytes prn. If UO P falls, will add additional nephron blockade agent. -- daily weights, strict I/O monitoring, fluid and sodium restriction -- we will continue to watch her LLQ pain. UA today to look for blood or infection -- continue OOB to chair daily and walking 3x day -- appreciate cardiology recommendations, we will notify them when we feel Ms Cristina is clos er to a "dry weight" (or her creatinine "bumps") for consideration of a RHC. Could also cons ider VQ scan -- continue IV iron (day 4/5) -- INR 1.83 today, will continue with heparin Magdalene Hair MD, MSc Tyrone Adrian MD - 11/15/2015 11:59 AM PDTINPATIENT FACULTY PROGRESS NOTE - GM 1 Author; Tyrone Adrian MD Attending Physician: Tyrone Adrian MD Hospital Day: 9 PCP: Fadi Goodrich DO PCP PCP Patient's Name: Elzbieta Cristina Today's Date: 11/15/2015 I personally interviewed the patient, performed the de la cruz elements of the physical examinatio n, and personally formulated the assessment and plan with the resident. I agree with the Dr Renee Segovia's & student Dara' documentation, except as noted or expanded upon below. Active Issues: X) R calf pain. Probably muscle strain/cramping related to metabolic shifts of diuresis. However, in setting of acute VTE, could be treatment failure. Since this is early in tr eatment, I would not change therapy even if we found a clot.. Calling it the same process. Thus for now will continue to anticoaglate and recommend mobility 1) *Anasarca 2) Acute DVT (deep venous thrombosis) -- left mid & distal femoral vein, and popliteal vei n - Using warfarin due to her weight --> loading, INR now 1.8 (great). Likely will be therapeutic in 48 hrs. Future imaging as below 3) Edema and weight gain - I appreciate & concur with cards recs. Will continue to diurese. Creat stable When diuresed to 'dry weight' (impact on BP/creatinine) we may consider a V/Q to look fo r CTEPH (Chronic thromboembolic Pulm Htn) - as outpatient 4) Severe Morbid obesity (HCC), BMI 88 Has she been evaluated for bariatric surgery? 5) AMARA (obstructive sleep apnea) - ? BiPap 6) Hypoventilation associated with obesity (HCC) 7) Type 2 diabetes mellitus (HCC) 8) Iron deficiency anemia due to chronic blood loss - receiving IV iron assuming poor gut absorption (failed trial & likely gut edema). If not budge, consider GI / workup. 9) Hypoalbuminemia (no proteinuria, need to rule out synthetic, nutrition, loss) 10) Hypothyroidism 14) Possible Right heart failure (HCC) 15) Candidal intertrigo Tyrone Adrian MD [facility] 14C reimbursement counselor Division of Hospital Medicine Department of Medicine [facility] [address] [place] [phone] [facility] DEPARTMENT: Hosp- [phone] Place of Service: Date of Service: 11/15/2015 CSN: [id number] Modifiers:GC Resident Involved: Yes Suggested CPT: 87316 Subsequent Visit Detailed/High complexity 35 min lColleen goff - 016 6:33 AM PDT PHYSICIAN LAWN CARE WORKER STUDENT PROGRESS NOTE FOR EDUCATIONAL PURPOSES ONLY INPATIENT PROGRESS NOTE PATIENT INFORMATION Patient Name: Elzbieta Cristina Date of : 1975 Date of Admission: 11/06/2015 PCP: Fadi Goodrich DO Room/Bed: /08/08 Attending Provider: Tyrone Adrian MD Encounter Information Date of Service: 11/08/2015 Hospital Day #: 9 Last 24hrs: No acute events overnight. Cardiology Consult: Did not think her echo RVSP was elevated enough to be concerning. Also doubted her SOB would have improved as much with diuresis if it were pulmonary HTN. Recommen ded further diuresis until creatinine bumps, then may re-consider. Subjective Yesterday evening had some pain in distal R calf with weight bearing. Pain is worse with a ctivity, better with rest. Tender with pressure at posterior distal calf. Still has episodic left groin pain, and infrequent right abdominal cramps - Denies CP, SOB, other abdominal p ain. Objective PHYSICAL EXAMINATION Last 24 hour min/max Temp: 37.4 C (99.3 F) Temp Min: 36.1 C (97 F) Max: 37.4 C (99.3 F) Pulse: 103 Pulse Min: 103 Max: 115 Resp: 18 Resp Min: 18 Max: 18 BP: 120/69 mmHg BP Min: 102/68 Max: 145/70 SpO2: 93 % SpO2 Min: 93 % Max: 96 % Body mass index is 80.57 kg/(m^2). WT change: 11/05: 473 lb 11/12: 428 lb 11/13: 418 lb 11/14: 426 lb Net: -47 lb Intake/Output Summary (Last 24 hours) at 11/15/15 1452 Last data filed at 11/15/15 1403 Gross per 24 hour Intake 2070 ml Output 3600 ml Net -1530 ml Intake/Output Summary (since admission) at 11/06/15 1840 Last data filed at 11/14/15 1000 Gross for the last 8 days Intake 9571.5 ml Output 13238 ml Net since Admission -75400.5 ml -25.938 L = 57.0636 lbs Constitutional: Pleasant, non-toxic appearing female in NAD. HEENT: Head: Normocephalic and atraumatic. Eyes: EOMI, no scleral icterus Mouth/Throat: oropharynx clear, mmm Neck : Full ROM. Neck supple. Unable to appreciate JVP CV: Tachy, regular rhythm, no m/r/g. Radial and pedal pulses 2+ bilat. Pulmonary/Chest: CTA. No crackles. No respiratory distress. Abdominal: Soft. Bowel sounds are normal. Tender over ventral hernia on right abd, and on L LQ, no CVA tenderness. No rebound and no guarding. Musculoskeletal: bilat LE tender to palpation, strength equal bilaterally. Right distal olga lidia f tender to deep palpation about 2 inches superior of the malleoli. Neuro: A & O to person, place, month and situation. Normal strength, intact distal sensatio n to light touch. CN II- XII intact. Skin: Warm, dry. Bilat LE swelling without erythema, warmth or streaking. Red, beefy erythe matous regions with circumscribed borders under both bilateral pannus, improving. Some skin breakdown in places, no ulceration or purulent drainage. Psych: normal mood and affect DATA Chemistries: Last 72 Hours (or 3 results) - Refreshable Recent Labs 11/13/15 0544 11/14/15 0419 11/14/15 1756 11/14/15 2059 11/15/15 0549 NA 138 -- 138 -- -- -- 137 K 3.6 -- 3.4 -- -- -- 3.5 CL 106 -- 105 -- -- -- 106 BICARB 23 -- 24 -- -- -- 23 BUN 23* -- 25* -- -- -- 26* CR 0.88 -- 0.88 -- -- -- 0.84 GLU 130* < > 152* < > 156* 150* 147* CA 9.3 -- 9.4 -- -- -- 9.7 MG 2.3 -- 2.4 -- -- -- 2.2 < > = values in this interval not displayed. CBC with diff last 72 hours (or 3 results) - Refreshable Recent Labs 11/13/15 0544 11/15/15 0549 WBC 11.11* 10.45 HB 10.7* 10.9* HCT 36.3 36.3 PLT 272 197 NEUTROPERC 52.0 -- LYMPHPERC 30.1 -- MONOPERC 9.1* -- BASOPERC 0.6 -- EOSPERC 6.9* -- INR: 1.79 Heparin 0.73 ASSESSMENT/PLAN Elzbieta Cristina, a 40 year old morbidly obese woman with DM2 and untreated AMARA who present ed with severe YO, 100 lb unintended weight gain and bilat LE pain and erythema, found to h ave a LLE DVT, new RV dysfunction and anasarca, currently being bridged to coumadin and diur esed. # New right calf pain Likely muscle strain/creamping related to metabolic shifts of diuresis or mechanical weight re-distributions with ambulation. Because of VTE, could also represent treatment failure, barron juarez at this point and without signs of new PEs, would not change therapy. Will continue to anticoagulate until therapeutic. - Continue anticoagulation - tx with conservative mgmt- heat, ice, massage # Decompensated right sided heart failure complicated by dyspnea on exertion and anasarca TTE showed mod LV dysfunction with RVSP 28 with suspicion of AMARA induced pulmonary HTN. [place] hansen postulated a more likely alternative explanation of her symptoms is diastolic heart failure (not pulm HTN) and thus would continue to encourage weight loss and a low sodium/flu id restricted diet. Pulm HTN would be less likely to have such improved respiratory symptoms with diuresis. Cardiology did not think a R heart cath was appropriate at this time but cou ld be re-considered once we diurese further toward her suspected dry weight of 390-100 or un til her Cr bumps. She would also have to be down another 20 lbs for the procedure. Undergoin g diuresis with a goal of 2-4 L / day. If flow is not maintained, may consider adding an add itional agent. Will watch Mag and K levels and provide oral K if <4.0. Will monitor volume status via HCO3 and kidney function. - Cardiology involved: Recommendations appreciated - After further diuresis, we may consider a V/Q to look for CTEPH - 100 mg IV Lasix BID - 60 mEq Oral K - AM BMP + Mag - PM serum K lab - Monitor strict I&O's - Daily weights - Continue PO Mag oxide tab daily # LLE DVT and presumed PE US confirmed left mid & distal femoral vein and popliteal thrombosis. Worsening SOB makes s ubsequent PEs likely. Uncertain if this is idiopathic vs provoked d/t hx of surgery 8 months ago and increasingly sedentary lifestyle. Began heparin/warfarin bridge with a goal INR of 2-3. Initially slow INR progression could be due to salads or edema. Suspect long-term prop hylaxis given hx of prior embolic stroke. Discussed risk/benefit of warfarin vs other direct oral anticoagulat agents (i.e FXa inhibitors). - Pharmacy following - Continue heparin until warfarin is therapeutic - daily INR and heparin levels # Iron deficiency anemia, chronic Borderline microcytic anemia with Iron 37, TIBC 11, Ferritin 18. Unlikely from an occult GI bleed. More likely nutrition or menses related. Due to oral iron causing constipation, will treat with IV iron. - Iron sucrose 200 mg IV daily x 5 days. # Right sided abdominal cramping Acute onset, LFTs mildly elevated with low albumin. In setting of morbid obesity and DM2, m ay consider mild non-alcoholic fatty liver dz (hepatic steatosis) or as a complication of ri ght sided HF. Since admission, Ast increased from 25-->47, Alk Phos 75-->101, albumin 3.2. - If pain worsens, may consider US # Intertriginous rash Likely suresh due to warm, moist region. Will treat at current sites of irritation under s kin folds. If pruritus or rash develops around other places, can treat those as well. Sympto matic improvement with nystatin and pillow cases. - Nystatin powder #Bilateral LE swelling and skin changes Likely a combination of decompensated R HF and chronic venous insufficiency, which can lead to heaviness, swelling, leg pain and skin changes. Unlikely related to cellulitis. - Elevate legs for symptom relief - 100 mg IV lasix BID - APAP TID, ice, heat - Oxycodone 5-10 mg q 4hrs PRN pain # AMARA Untreated AMARA. Could not obtain prior sleep studies. No CPAP due to claustrophobia.Weight g ain could have worsened AMARA and caused pulmonary/cardiac problems. Overnight O2 monitoring s howed an average of 3.2 events per hour, which is in the normal range on the AHI index. (nor mal <5/hr) with 97% of the time in the 90s. - Follow for AMARA symptoms like fatigue, snoring #Morbid obesity with rapid weight gain With an ~100 lb wt gain over 8 months and RV dysfxn on her TTE, sudden wt gain is most like ly due to deterioration in her CV status. This can present with anasarca and overtime, progr ess to LE skin changes/breakdown. Other possible differentials include non-pathological weig ht gain from inactivity following surgeries, torsemide resistance or pickwickian syndrome (O HS). PT consulted and recommends home assistance and outpatient PT. Her sister is her nielsi scooter. Prior to this weight gain, she had been discussing bariatric surgery. - Monitor strict I&O - Monitor daily weight - encourage walking and movement #Mild Leukocytosis, resolved Mildly elevated WBC on 11/12 (11.11) with tachy improved with WBC WNL 10.45 on 11/14. Afebril e. Likely associated with her diaphoresis and chills that occurred the night of the . No new sxs. - obtain new CBC if signs of infection arise. #DM2 with associate diabetic neuropathy Questionably controlled DM with neuropathy controlled by gabapentin. - Moderate ISS (insulin sliding scale) - continue home gabapentin 300 mg QID #Bipolar disorder with associated depression and anxiety Anxiety is exacerbated with episodes of dyspnea and CP. Continue home medications. - alprazolam 1mg TID prn (xanax) - fluoxetine 40mg po qday (SSRI prozac) - olanzapine 30mg po qhs (antipsychotic) #Hypothyroidism TSH in the hospital was 3.93 (WNL). - continue home thyroid 30mg po daily #Migraine Headaches Currently on topiramate for control. - topiramate 200mg po bid JEFFREY Gee-S2 [facility] PA Student Feeding: <2L fluid, Diabetic diet, >2g na Analgesia: APAP, gabapentin, hydrocodone Thromboembolic prophylaxis: Heparin/warfarin Glycemic control: moderate ISS Mobility: Encourage walking and movement Discharge: Expect hospital stay another 3-5 days with diuresis until more euvolemic and R h eart cath can be completed. Code status: FULL Associated attestation - Yosef Segovia - 11/15/2015 2:59 PM PDTI have read the licha mart note by JEFFREY Diamond and agree with the assessment and plan he has outlined. Exam: General: morbidly obese, resting comfortably in bed. HEENT: unable to assess JVP Lungs: clear to auscultation bilaterally Heart: rrr, no murmurs or gallops Abd: soft NT ND,+BS Ext: pitting edema, improving mild LE erythema bilaterally, no pain with passive ROM of hip s Skin: Erythematous line across proximal tibia, erythematous beefy erythematous region with circumscribed borders and satellite patches under left pannus Brief plan: -New right calf pain likely muscle cramp or strain, as it worsens with activity. Concern fo r possible treatment failure, would not change our management at this time as treatment is s till early. -Net I/O was less than 1L yesterday, with no signs of bump in Cr or contraction alkalosis - ->Increase diuresis with IV Lasix 120mg BID, repleting K and Mg as needed -Still awaiting therapeutic INR, still bridging with heparin. Avoiding DOACs with no data s tudied on the obese population. If warfarin dose continues to climb, will have to dose twice a day -Continue IV iron 200mg (day 3/5) -Will talk to cardiology again once we have established euvolemia. Considering RHC +/- VQ s can Yosef Segovia MD PGY-1 Internal Medicine [id number] Tyrone Adrian MD - 11/14/2015 4:16 PM PDTINPATIENT FACULTY PROGRESS NOTE - GM 1 Author; Tyrone Adrian MD Attending Physician: Tyrone Adrian MD Hospital Day: 8 PCP: Fadi Goodrich DO PCP PCP Patient's Name: Elzbieta Cristina Today's Date: 11/14/2015 I personally interviewed the patient, performed the de la cruz elements of the physical examinatio n, and personally formulated the assessment and plan with the resident. I agree with the Dr Renee Segovia & pradeep Diamond' documentation, except as noted or expanded upon below. Active Issues: 1) *Anasarca 2) Acute DVT (deep venous thrombosis) -- left mid & distal femoral vein, and popliteal vei n 3) Edema and weight gain 4) Severe Morbid obesity (HCC), BMI 88 5) AMARA (obstructive sleep apnea) 6) Hypoventilation associated with obesity (HCC) 7) Type 2 diabetes mellitus (HCC) 8) Iron deficiency anemia due to chronic blood loss 9) Hypoalbuminemia (no proteinuria, need to rule out synthetic, nutrition, loss) 10) Hypothyroidism 14) Possible Right heart failure (HCC) 15) Candidal intertrigo Tyrone Adrian MD [facility] 14C reimbursement counselor Division of Hospital Medicine Department of Medicine [facility] [address] [place] [address] [facility] DEPARTMENT: Hosp- [phone] Place of Service: - Date of Service: 11/14/2015 CSN: [id number] Modifiers:CHANDLER Resident Involved: Yes Suggested CPT: 50784 Subsequent Visit Exp Prob Foc/Mod Complexity 25 min olleen Diamond - 016 6:42 AM PDT PHYSICIAN LAWN CARE WORKER STUDENT PROGRESS NOTE FOR EDUCATIONAL PURPOSES ONLY INPATIENT PROGRESS NOTE PATIENT INFORMATION Patient Name: Elzbieta Cristina Date of : 1975 Date of Admission: 11/06/2015 PCP: Fadi Goodrich DO Room/Bed: [facility] Attending Provider: Tyrone Adrian MD Encounter Information Date of Service: 11/08/2015 Hospital Day #: 8 Last 24hrs: No acute events overnight Subjective: - Pain in her left groin feels the same as yesterday. Remains episodic. - one episode of right sided cramping yesterday. - Denies CP, SOB, other abdominal pain. Objective PHYSICAL EXAMINATION Last 24 hour min/max Temp: 36.9 C (98.4 F) Temp Min: 36.3 C (97.3 F) Max: 36.9 C (98.4 F) Pulse: 104 Pulse Min: 99 Max: 106 Resp: 18 Resp Min: 18 Max: 18 BP: 145/70 mmHg BP Min: 111/72 Max: 126/79 SpO2: 91 % SpO2 Min: 91 % Max: 98 % Body mass index is 81.06 kg/(m^2). 11/05: 473 lb (214.5 kg) 11/13: 118 lb (190.012 kg) Net Hospital wt loss: -55 lbs Intake/Output Summary (Last 24 hours) at 11/14/15 1239 Last data filed at 11/14/15 1000 Gross per 24 hour Intake 1219 ml Output 3600 ml Net -2381 ml Constitutional: Pleasant, non-toxic appearing female in NAD. HEENT: Head: Normocephalic and atraumatic. Eyes: EOMI, no scleral icterus Mouth/Throat: oropharynx clear, mmm Neck : Full ROM. Neck supple. Unable to appreciate JVP CV: Tachy, regular rhythm, no m/r/g. Radial and pedal pulses 2+ bilat. Pulmonary/Chest: CTA. No crackles. No respiratory distress. Abdominal: Soft. Bowel sounds are normal. Tender over ventral hernia on right abd, and on L LQ, no CVA tenderness. No rebound and no guarding. Musculoskeletal: bilat LE tender to palpation, strength equal bilaterally. Neuro: A & O to person, place, month and situation. Normal strength, intact distal sensatio n to light touch. CN II- XII intact. Skin: Warm, dry. Bilat LE swelling. Red, beefy erythematous regions with circumscribed bord ers under both bilateral pannus, improving. Some skin breakdown in places, no ulceration or purulent drainage. Psych: normal mood and affect DATA Chemistries: Last 72 Hours (or 3 results) - Refreshable Recent Labs 11/12/15 2347 11/13/15 0544 11/13/15 1848 11/13/15 2145 11/14/15 0419 NA 137 138 -- -- -- 138 K 3.6 3.6 -- -- -- 3.4 CL 104 106 -- -- -- 105 BICARB 23 23 -- -- -- 24 BUN 23* 23* -- -- -- 25* CR 0.99 0.88 -- -- -- 0.88 GLU 149* 130* < > 148* 159* 152* CA 9.4 9.3 -- -- -- 9.4 MG 2.3 2.3 -- -- -- 2.4 < > = values in this interval not displayed. INR: 1.46 Heparin 0.73, trace elevated K: 3.4 WNL Mag 2.4 WNL Liver Tests: Last 72 hours (or 3 results) Recent Labs 11/13/15 0544 AST 47* ALT 55 TBILI 0.4 AP 101* ALB 3.2* TP 7.7 CBC with diff last 72 hours (or 3 results) - Refreshable Recent Labs 11/13/15 0544 WBC 11.11* HB 10.7* HCT 36.3 PLT 272 NEUTROPERC 52.0 LYMPHPERC 30.1 MONOPERC 9.1* BASOPERC 0.6 EOSPERC 6.9* CXR/ECG NML. UA: unremarkable, few amorphous crystals and epithelial cells. ASSESSMENT/PLAN Elzbieta Cristina, a 40 year old morbidly obese woman with DM2 and untreated AMARA who present ed with severe YO, 100 lb unintended weight gain and bilat LE pain and erythema, found to h ave a LLE DVT, new RV dysfunction and anasarca, currently being bridged to coumadin and diur esed. # Decompensated right sided heart failure complicated by dyspnea on exertion and anasarca TTE showed moderate LV dysfunction with RVSP 28 with suspicion of AMARA induced pulmonary HTN . Undergoing diuresis with a gal of 2-4 L / day. If flow is not maintained, may consider add ing an additional agent. Will watch Mag and K levels and provide oral K if <4.0. Will monit or volume status via HCO3 and kidney function. Consulting cardiology for evaluation and opin ion on obtaining a R heart cath with concerns of pulmonary HTN. - Cardiology consult regarding right heart catheterization - 100 mg IV Lasix BID - 60 mEq Oral K - AM BMP + Mag - PM serum K lab - Monitor strict I&O's - Daily weights - Continue PO Mag oxide tab daily # LLE DVT and presumed PE US confirmed left mid & distal femoral vein and popliteal thrombosis. Worsening SOB makes s ubsequent PEs likely. Uncertain if this is idiopathic vs provoked d/t hx of surgery 8 months ago and increasingly sedentary lifestyle. Began heparin/warfarin bridge with a goal INR of 2-3. Initially slow INR progression could be due to salads or edema. Suspect long-term prop hylaxis given hx of prior embolic stroke. Discussed risk/benefit of warfarin vs other direct oral anticoagulat agents (i.e FXa inhibitors). - Pharmacy following - Continue heparin until warfarin is therapeutic - daily INR and heparin levels # Iron deficiency anemia, chronic Borderline microcytic anemia with Iron 37, TIBC 11, Ferritin 18. Unlikely from an occult GI bleed. More likely nutrition or menses related. Due to oral iron causing constipation, will treat with IV iron. - Iron sucrose 200 mg IV daily x 5 days. # Right sided abdominal cramping Acute onset, LFTs mildly elevated with low albumin. In setting of morbid obesity and DM2, m ay consider mild non-alcoholic fatty liver dz (hepatic steatosis) or as a complication of ri ght sided HF. Since admission, Ast increased from 25-->47, Alk Phos 75-->101, albumin 3.2. - If pain worsens, may consider US # Intertriginous rash Likely suresh due to warm, moist region. Will treat at current sites of irritation under s kin folds. If pruritus or rash develops around other places, can treat those as well. Sympto matic improvement with nystatin and pillow cases. - Nystatin powder #Bilateral LE swelling and skin changes Likely a combination of decompensated R HF and chronic venous insufficiency, which can lead to heaviness, swelling, leg pain and skin changes. Unlikely related to cellulitis. - Elevate legs for symptom relief - 100 mg IV lasix BID - APAP TID, ice, heat - Oxycodone 5-10 mg q 4hrs PRN pain # AMARA Untreated AMARA. Could not obtain prior sleep studies. No CPAP due to claustrophobia.Weight g ain could have worsened AMARA and caused pulmonary/cardiac problems. Overnight O2 monitoring s howed an average of 3.2 events per hour, which is in the normal range on the AHI index. (nor mal <5/hr) with 97% of the time in the 90s. - Follow for AMARA symptoms like fatigue, snoring #Morbid obesity with rapid weight gain With an ~100 lb wt gain over 8 months and RV dysfxn on her TTE, sudden wt gain is most like ly due to deterioration in her CV status. This can present with anasarca and overtime, progr ess to LE skin changes/breakdown. Other possible differentials include non-pathological weig ht gain from inactivity following surgeries, torsemide resistance or pickwickian syndrome (O HS). PT consulted and recommends home assistance and outpatient PT. Her sister is her harsh scooter. - Monitor strict I&O - Monitor daily weight - encourage walking and movement #Mild Leukocytosis New onset WBC 11.11 with tachycardia. Afebrile. Likely associated with her diaphoresis and chills that occurred the night of the . No new sxs. - obtain new CBC if signs of infection arise. #DM2 with associate diabetic neuropathy Questionably controlled DM with neuropathy controlled by gabapentin. - Moderate ISS (insulin sliding scale) - continue home gabapentin 300 mg QID #Bipolar disorder with associated depression and anxiety Anxiety is exacerbated with episodes of dyspnea and CP. Continue home medications. - alprazolam 1mg TID prn (xanax) - fluoxetine 40mg po qday (SSRI prozac) - olanzapine 30mg po qhs (antipsychotic) #Hypothyroidism TSH in the hospital was 3.93 (WNL). - continue home thyroid 30mg po daily #Migraine Headaches Currently on topiramate for control. - topiramate 200mg po bid JEFFREY Gee-S2 [facility] PA Student Feeding: <2L fluid, Diabetic diet, >2g na Analgesia: APAP, gabapentin, hydrocodone Thromboembolic prophylaxis: Heparin/warfarin Glycemic control: moderate ISS Mobility: Encourage walking and movement Discharge: Expect hospital stay another 3-5 days with diuresis until more euvolemic and R h eart cath can be completed. Code status: FULL Associated attestation - Yosef Segovia - 11/14/2015 5:02 PM PDTI have read the ceferinoen t note by PA student Dara and agree with the assessment and plan he has outlined. Exam: General: morbidly obese, resting comfortably in bed. HEENT: unable to assess JVP Lungs: clear to auscultation bilaterally Heart: rrr, no murmurs or gallops Abd: soft NT ND,+BS Ext: pitting edema, improving mild LE erythema bilaterally, no pain with passive ROM of hip s Skin: Erythematous line across proximal tibia, erythematous beefy erythematous region with circumscribed borders and satellite patches under left pannus Brief plan: -Sukhwinder horse pain in RUQ improved -Continue diuresis with IV Lasix 100mg BID, repleting K and Mg as needed -Still awaiting therapeutic INR, still bridging with heparin. Avoiding DOACs with no data s tudied on the obese population. If warfarin dose continues to climb, will have to dose twice a day -Start IV iron 200mg (day 2/) -Cardiology consulted, did not see any classic findings of pHTN, but would still consider R HC if we felt strongly about it. Also does not have classic findings of chronic PE either. Barron serrano would not cath her until she is euvolemic. They recommend continuing diuresis until we h ave bump in BUN, Cr, bicarb to show she is rafa -Will have to discuss with patient whether she wants to continue her diuresis inpatient or outpatient Yosef Segovia MD PGY-1 Internal Medicine [id number] Tyrone Adrian MD - 11/13/2015 4:06 PM PDTINPATIENT FACULTY PROGRESS NOTE - GM 1 Author; Tyrone Adrian MD Attending Physician: Tyrone Adrian MD Hospital Day: 7 PCP: Fadi Goodrich DO PCP PCP Patient's Name: Elzbieta Cristina Today's Date: 11/13/2015 I personally interviewed the patient, performed the de la cruz elements of the physical examinatio n, and personally formulated the assessment and plan with the resident. I agree with the Dr Renee Segovia & pradeep Diamond's documentation, except as noted or expanded upon below. Active Issues: 1) *Anasarca 2) Acute DVT (deep venous thrombosis) & presumed PE -- left mid & distal femoral vein, and popliteal vein. Long discussion of risks/benefits of warfarin vs the direct oral anticoagulants (FXa inh ibitors) & potential rationale for slow INR bump on warfarin (salads!, edema) Continue to use warfarin. 3) Edema and weight gain & possible pulm HTN - ask cards to see re: RH cath. 4) Severe Morbid obesity (HCC), BMI 88 5) AMARA (obstructive sleep apnea) 6) Hypoventilation associated with obesity (HCC) 7) Type 2 diabetes mellitus (HCC) 8) Iron deficiency anemia due to chronic blood loss 9) Hypoalbuminemia (no proteinuria, need to rule out synthetic, nutrition, loss) 10) Hypothyroidism 14) Presumed Right heart failure (HCC) 15) Candidal intertrigo Tyrone Adrian MD [facility] 14C reimbursement counselor Division of Hospital Medicine Department of Medicine [facility] [address] [place] [id number] [facility] DEPARTMENT: Hosp- [phone] Place of Service: Date of Service: 11/13/2015 CSN: [id number] Modifiers:GC Resident Involved: Yes Suggested CPT: 34723 Subsequent Visit Detailed/High complexity 35 min lshell Colleen - 016 6:36 AM PDT PHYSICIAN LAWN CARE WORKER STUDENT PROGRESS NOTE FOR EDUCATIONAL PURPOSES ONLY INPATIENT PROGRESS NOTE PATIENT INFORMATION Patient Name: Elzbieta Cristina Date of : 1975 Date of Admission: 11/06/2015 PCP: Fadi Goodrich DO Room/Bed: [facility] Attending Provider: Tyrone Adrian MD Encounter Information Date of Service: 11/08/2015 Hospital Day #: 7 Last 24hrs: - Woke up over night with 3 episodes of acute right sided abdominal pain that felt like a " charley horse". Subjective: - Pain in her left groin feels the same as yesterday. Remains episodic regardless of urinar y urge status. - Denies CP, SOB, other abdominal pain. Objective PHYSICAL EXAMINATION Last 24 hour min/max Temp: 36.4 C (97.5 F) Temp Min: 36.6 C (97.9 F) Max: 36.8 C (98.2 F) Pulse: 110 Pulse Min: 99 Max: 110 Resp: 18 Resp Min: 18 Max: 18 BP: 110/55 mmHg BP Min: 110/55 Max: 145/76 SpO2: 98 % SpO2 Min: 95 % Max: 100 % Body mass index is 82.12 kg/(m^2). 11/05: 473 lb (214.5 kg) 11/10: 436 lb (197.859 kg)- balanced w/o support on scale 11/12: 428 lb (194.502 kg) Net Hospital wt loss: -45 lbs Intake/Output Summary (Last 24 hours) at 11/13/15 1410 Last data filed at 11/13/15 1338 Gross per 24 hour Intake 2298 ml Output 4660 ml Net -2362 ml Constitutional: Pleasant, non-toxic appearing female in NAD. HEENT: Head: Normocephalic and atraumatic. Eyes: EOMI, no scleral icterus Mouth/Throat: oropharynx clear, mmm Neck : Full ROM. Neck supple. Unable to appreciate JVP CV: Tachy, regular rhythm, no m/r/g. Radial and pedal pulses 2+ bilat. Pulmonary/Chest: CTA. No crackles. No respiratory distress. Abdominal: Soft. Bowel sounds are normal. Tender over ventral hernia on right abd, and on L LQ, no CVA tenderness. No rebound and no guarding. Musculoskeletal: bilat LE tender to palpation, strength equal bilaterally. Neuro: A & O to person, place, month and situation. Normal strength, intact distal sensatio n to light touch. CN II- XII intact. Skin: Warm, dry. Bilat LE swelling. 1-2 inch petechial horizontal stripe across proximal ti peterson, improving. Red, beefy erythematous regions with circumscribed borders under both bilate ral pannus, improving. Some skin breakdown in places, no ulceration or purulent drainage. Psych: normal mood and affect DATA Chemistries: Last 72 Hours (or 3 results) - Refreshable Recent Labs 11/12/15 0413 11/12/15 2347 11/13/15 0544 11/13/15 0903 11/13/15 1338 NA 140 -- 137 138 -- -- K 3.5 -- 3.6 3.6 -- -- CL 108 -- 104 106 -- -- BICARB 22 -- 23 23 -- -- BUN 19 -- 23* 23* -- -- CR 0.85 -- 0.99 0.88 -- -- GLU 131* < > 149* 130* 147* 116* CA 8.8 -- 9.4 9.3 -- -- MG 2.3 -- 2.3 2.3 -- -- < > = values in this interval not displayed. INR: 1.34, increasing but not therapeutic Heparin 0.60, therapeutic K: 3.6 Mag 2.3 WNL CBC with diff last 72 hours (or 3 results) - Refreshable Recent Labs 11/13/15 0544 WBC 11.11* HB 10.7* HCT 36.3 PLT 272 NEUTROPERC 52.0 LYMPHPERC 30.1 MONOPERC 9.1* BASOPERC 0.6 EOSPERC 6.9* CXR/ECG NML. Echo: LV normal. RV moderately enlarged w/mod reduced systolic fxn. RA 5; RVSP 28. UA: unremarkable, few amorphous crystals and epithelial cells. ASSESSMENT/PLAN In summary, Elzbieta Cristina, a 40 year old morbidly obese female with untreated AMARA who pr esented with severe YO, 100 lb unintended weight gain and bilat LE pain and erythema, found to have a LLE DVT, new RV dysfunction and anasarca, currently being bridged to coumadin and diuresed. #Mild Leukocytosis New onset WBC 11.11 with tachycardia. Afebrile. Likely associated with her diaphoresis and chills that occurred the night of the . - Monitor vitals and symptoms for fever, tachy or other signs of infection #Right sided abdominal cramping Acute onset, will check LFTs for hepatic of biliary injury. - FU LFTs. # Decompensated right sided heart failure complicated by dyspnea on exertion and anasarca TTE showed moderate LV dysfunction. Her chronic diagnosed, but untreated AMARA, could have le d to pulmonary HTN and subsequent LV changes. UOP has once again increased with the increase of lasix from 60 to 100 mg IV. Will continue at higher dose to maintain a goal of 2-4 L / d ay. If flow is not maintained, may consider adding an additional agent. Will watch Mag and K levels and provide oral K if <4.0. Will monitor volume status via HCO3 and kidney funct ion. Will consult cardiology for evaluation and opinion on obtaining a R heart cath with sofía ahn of pulmonary HTN. - Consult Cardiology regarding R heart cath and evaluation of possible pulm HTN - 100 mg IV Lasix BID - 60 mEq Oral K - AM BMP + Mag - PM serum K lab - Monitor strict I&O's - Daily weights - Continue PO Mag oxide tab daily # LLE DVT (idopathic vs provoked) Asymmetric LE pain and swelling was suspicious for DVT and confirmed with US. Worsening SOB makes subsequent PEs likely. Whether this is idiopathic vs provoked is less clear as there is hx of surgery 8 months ago and increasingly sedentary lifestyle. Began heparin/warfarin bridge with a goal INR of 2-3. Suspect long-term prophylaxis is necessary, especially given her stroke hx. Min 3 months. - Pharmacy following - Continue heparin until warfarin is therapeutic - daily INR and heparin levels #AMARA Untreated AMARA. No CPAP due to claustrophobia.Weight gain could be worsening AMARA and causing further pulmonary/cardiac problems. Overnight O2 monitoring showed an average of 3.2 events per hour, which is in the normal range on the AHI index. (normal <5/hr) with 97% of the mitesh e in the 90s. - Follow for AMARA symptoms like fatigue, snoring # Intertriginous rash Likely suresh due to warm, moist region. Will treat at current sites of irritation under s kin folds. If pruritus or rash develops around other places, can treat those as well. Sympto matic improvement with nystatin and pillow cases. - Nystatin powder #Bilateral LE swelling and skin changes Likely a combination of decompensated R HF and chronic venous insufficiency, which can lead to heaviness, swelling, leg pain and skin changes. Less likely cellulitis. - Elevate legs for symptom relief - 100 mg IV lasix BID - APAP TID, ice, heat - Oxycodone 5-10 mg q 4hrs PRN pain #Morbid obesity with rapid weight gain With an ~100 lb wt gain over 8 months and RV dysfxn on her NICOLA, sudden wt gain is most like ly due to deterioration in her CV status. This can present with anasarca and overtime, progr ess to LE skin changes/breakdown. Other possible differentials include non-pathological weig ht gain from inactivity following surgeries, torsemide resistance or pickwickian syndrome (O HS). PT consulted and recommends home assistance and outpatient PT. Her sister is her caregi scooter. - Monitor strict I&O - Monitor daily weight - encourage walking and movement #Anemia, chronic H/H: 9.3/31.6, borderline microcytic. Iron studies consistent with iron deficiecny anemia. (Iron 37, TIBC 11, Ferritin 18). Will start with oral supplementation. - Consider IV iron sucrose 200 mg IV daily x 5 days. #DM2 with associate diabetic neuropathy Questionably controlled DM with neuropathy controlled by gabapentin. - Moderate ISS (insulin sliding scale) - continue home gabapentin 300 mg QID #Bipolar disorder with associated depression and anxiety Anxiety is exacerbated with episodes of dyspnea and CP. Continue home medications. - alprazolam 1mg TID prn (xanax) - fluoxetine 40mg po qday (SSRI prozac) - olanzapine 30mg po qhs (antipsychotic) #Hypothyroidism TSH in the hospital was 3.93 (WNL). - continue home thyroid 30mg po daily #Migraine Headaches Currently on topiramate for control. - topiramate 200mg po bid JEFFREY Gee-S2 [facility] PA Student Feeding: <2L fluid, Diabetic diet, >2g na Analgesia: APAP, gabapentin, hydrocodone Thromboembolic prophylaxis: Heparin/warfarin Glycemic control: moderate ISS Mobility: Encourage walking and movement Discharge: Expect hospital stay another 5-7 days with diuresis until more euvolemic and R h eart cath can be completed. Code status: FULL Associated attestation - Yosef Segovia - 11/13/2015 3:14 PM PDTI have read the ceferinoen t note by JEFFREY Diamond and agree with the assessment and plan he has outlined. General: morbidly obese, resting comfortably in bed. HEENT: unable to assess JVP Lungs: clear to auscultation bilaterally Heart: rrr, no murmurs or gallops Abd: soft NT ND,+BS Ext: pitting edema, improving mild LE erythema bilaterally, no pain with passive ROM of hip s Skin: Erythematous line across proximal tibia, erythematous beefy erythematous region with circumscribed borders and satellite patches under left pannus Brief plan: -New sukhwinder horse pain in RUQ, electrolytes wnl, ordered LFTs which were minimally elevate d, patient also states she does not have gallbladder. Likely related to aggressive diuresis, will continue to monitor. -Continue diuresis with IV Lasix 100mg BID, repleting K and Mg as needed -Still awaiting therapeutic INR, still bridging with heparin. Avoiding DOACs with no data s tudied on the obese population. -Start IV iron 200mg x 5 doses -Anticipate several more days of diuresis. Will involve cardiology for consideration of RHC before discharge. If solely elevated right sided pressures, will work up causes and conside r VQ scan for chronic VTE. Yosef Segovia MD PGY-1 Internal Medicine [id number] Tyrone Adrian MD - 11/12/2015 1:59 PM PDTINPATIENT FACULTY PROGRESS NOTE - GM 1 Author; Tyrone Adrian MD Attending Physician: Tyrone Adrian MD Hospital Day: 6 PCP: Fadi Goodrich DO PCP PCP Late Entry for November 12, 2015, when I completely evaluated, examined, and documented, then 'pended' my note, & 'pasted' it below, in order to allow for the resident's autonomous comp letion of their assessment Patient's Name: Elzbieta Cristina Today's Date: 11/13/2015 I personally interviewed the patient, performed the de la cruz elements of the physical examinatio n, and personally formulated the assessment and plan with the resident. I agree with the Dr Renee Segovia & pradeep Diamond''s documentation, except as noted or expanded upon below. Review of systems notable for: L deep groin pain. "never felt before", but similar to her p rior kidney stone pain, but that was in her back. O/w breathing ok, no CP, no Abd pain. Do es note some night sweats, or otherwise negative. Exam notable for: BP 116/61 | Pulse 66 | Temp 37 C (98.6 F) | RR 20 | Ht 1.626 m (5' 4") | Wt 107 kg (235 lb 14.3 oz) | SpO2 95% | BMI 40.47 kg/(m^2) GeneralObese; comfortable, pleasant Neck: no overt thyromegaly, notable fat pad hypertrophy CVS: JVP not visualized supine, @ 45 degrees or 90 degrees, with or without abd jugular assessment. Distant HS, no prominent P2/S2. PA not palpable. Pulm: overall clear Abd: obese, soft, NT "L Groin": Urine odor; pain along inquinal ligament region, ~ 2/3 medial. No pain with internal/external rotation of her femur. Ext: edema Studies notable for: Chem (11/11): Essentially ok (K 3.5; Mg 2.3; Creatinine 0.85; Glu 131 UA (11/10): unremarkable Active Issues: 1) *Anasarca, Edema and weight gain Etiology unclear in setting of antecedent obesity. 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 point not definitive Plan: continue to diurese until 'dry' (drop in BP &/or lab evidence of volume contraction (ris ing creatine & HCO3) As we near, will ask cardiology to see to consider RHC If elevated pressures DDX is multifold (Obesity, chronic VTE, AMARA) & will be evaluated a ccordingy 2) Acute DVT (deep venous thrombosis) & possible pulmonary embolism (left mid & distal fem oral vein, and popliteal vein) 3) Loading with heparin gtt & warfarin (not using DOAC's due to absent data in patients with obesity) 4) Severe Morbid obesity (HCC), BMI 88 Call PCP & ask if she has ever been presented for bariatric surgery discussion She is young & he HIV is well-controlled 5) AMARA (obstructive sleep apnea) - not on bipap 6) Hypoventilation associated with obesity (HCC) - presumed, and likely contributing to above 7) Type 2 diabetes mellitus (HCC) - CBG's good here 8) Iron deficiency anemia due to chronic blood loss - needs this explored. Rx Fe (OK with IV), but may need endometrial bx/gyne eval 9) Hypoalbuminemia (no proteinuria, need to rule out synthetic, nutrition, loss) DDX Loss: 100 mg proteinuria on admit, but neg x 3 in repat - doubt renal (nephrotic) losses Could be gut/nutritional malabsorption if she has edematous gut due to pulm HTN - not ob viously so. AND INR normal on admit Production: No e/o liver disease (nl Plt), but certainly is at risk for steatohepatitis/MONROE Diet/absorption - as above (& normal INR on admit) Catabolism/shifts - could be due to acute admission. Will follow 10) Hypothyroidism 11) Right heart failure (HCC) - probably, eval ongoing 12) Candidal intertrigo Tyrone Adrian MD [facility] 14C reimbursement counselor Division of Hospital Medicine Department of Medicine [facility] [address] [place] [address] [facility] DEPARTMENT: Hosp- [phone] Place of Service: - Date of Service: 11/12/2015 CSN: [id number] Modifiers:GC Resident Involved: Yes Suggested CPT: 89429 Subsequent Visit Detailed/High complexity 35 min lColleen goff - 016 6:31 AM PDT PHYSICIAN LAWN CARE WORKER STUDENT PROGRESS NOTE FOR EDUCATIONAL PURPOSES ONLY INPATIENT PROGRESS NOTE PATIENT INFORMATION Patient Name: Elzbieta Cristina Date of : 1975 Date of Admission: 11/06/2015 PCP: Fadi Goodrich DO Room/Bed: Attending Provider: Mannie Larkin MD Encounter Information Date of Service: 11/08/2015 Hospital Day #: 6 Last 24hrs: - Overnight woke up sweating with chills x 3. Cold compress helped symptoms. - UA sent for culture based on new onset L groin pain with urination. Negative UA- few marcell phous crystals Subjective: - Yesterday developed deep left groin/LLL pain that first presented when she had to urinate but then began occurring episodically regardless of urinary urgency. - Continues to endorse less SOB with activity, no abd complaints. - intertriginous skin breakdown has symptom improvement with nystatin powder and pillow amy es. Objective PHYSICAL EXAMINATION Last 24 hour min/max Temp: 36.9 C (98.4 F) Temp Min: 36.6 C (97.9 F) Max: 36.9 C (98.4 F) Pulse: 99 Pulse Min: 96 Max: 117 Resp: 20 Resp Min: 19 Max: 20 BP: 117/54 mmHg BP Min: 111/76 Max: 140/69 SpO2: 93 % SpO2 Min: 93 % Max: 98 % Body mass index is 82.46 kg/(m^2). 11/05: 473 lb (214.5 kg) 11/06: 461 lb (209.426 kg) 11/07: 449 lb (203.892 kg) 11/08: 438 lb (198.675 kg) 11/09: 402 lb (182.6 kg)- likely inaccurate as pt used railings for support. 11/10: 436 lb (197.859 kg)- balanced without support on scale Net Hospital wt loss: -37 lbs Intake/Output Summary (Last 24 hours) at 11/12/15 1330 Last data filed at 11/12/15 1009 Gross per 24 hour Intake 771 ml Output 2950 ml Net -2179 ml Constitutional: Pleasant, non-toxic appearing female in NAD. HEENT: Head: Normocephalic and atraumatic. Eyes: EOMI, no scleral icterus Mouth/Throat: oropharynx clear, mmm Neck : Full ROM. Neck supple. Unable to appreciate JVP CV: Tachy, regular rhythm, no m/r/g. Radial and pedal pulses 2+ bilat. Pulmonary/Chest: CTA. No crackles. No respiratory distress. Abdominal: Soft. Bowel sounds are normal. Tender over ventral hernia on right abd, and on L LQ, no CVA tenderness. No rebound and no guarding. Musculoskeletal: bilat LE tender to palpation, strength equal bilaterally. Neuro: A & O to person, place, month and situation. Normal strength, intact distal sensatio n to light touch. CN II- XII intact. Skin: Warm, dry. Bilat LE swelling. 1-2 inch petechial horizontal stripe across proximal ti peterson, improving. Red, beefy erythematous regions with circumscribed borders under both bilate ral pannus, improving. Some skin breakdown in places, no ulceration or purulent drainage. Psych: normal mood and affect DATA Chemistries: Last 72 Hours (or 3 results) - Refreshable Recent Labs 11/10/15 0405 11/11/15 0439 11/11/15 1749 11/11/15 2219 11/12/15 0413 NA 141 -- 141 -- -- -- 140 K 3.6 -- 3.5 -- -- -- 3.5 CL 109* -- 108 -- -- -- 108 BICARB 24 -- 23 -- -- -- 22 BUN 15 -- 18 -- -- -- 19 CR 0.83 -- 0.84 -- -- -- 0.85 GLU 131* < > 140* < > 155* 138* 131* CA 8.4* -- 8.7 -- -- -- 8.8 MG 2.2 -- 2.3 -- -- -- 2.3 < > = values in this interval not displayed. CXR/ECG NML. Echo: LV normal. RV moderately enlarged w/mod reduced systolic fxn. RA 5; RVSP 28. - PT 11/09: Demonstrated capacity to re-enter her home and return to ADLs. Recommend dischar ge home with assistance as needed with outpatient PT referral. - Overnight oximetry on RA report: desaturation event = decrease of 4+ O2% 18 desaturation events >3 min 22 desaturation events <3 min with mean high 95.6%; mean low 89% Events/hr >10s = 3.2 Total time: SpO2 in 90's = 97%; 80's = 1.1%; 70's = 0.1% 11/11: INR: 1.25, not therapeutic Heparin 0.44, therapeutic K: 3.5 Mag 2.3 WNL ASSESSMENT/PLAN In summary, Elzbieta Cristina, a 40 year old morbidly obese female with untreated AMARA who pr esented with severe YO, 100 lb unintended weight gain and bilat LE pain and erythema, found to have a LLE DVT, new RV dysfunction and anasarca, currently being bridged to coumadin and diuresed. # Decompensated right sided heart failure # Dyspnea on exertion # Anasarca TTE showed moderate LV dysfunction. Her chronic diagnosed, but untreated AMARA, could have le d to pulmonary HTN and subsequent LV changes. UOP has declined on 60 mg IV lasix, will jerry nue trial with increased dose of IV lasix to try and maintain a goal of 2-4 L / day. If flow is not maintained, may consider adding an additional agent. Will watch Mag and K levels an d provide oral K if <4.0. When she becomes more euvolemic, will consider in patient right he art cath to evaluate for pulmonary hypertension. - 100 mg IV Lasix BID - AM BMP + Mag - PM serum K lab - Monitor strict I&O's - Daily weights - Continue PO Mag oxide tab daily - 60 mEq Oral K - Consider R heart cath once patient is closer to euvolemia # LLE DVT (idopathic vs provoked) Asymmetric LE pain and swelling was suspicious for DVT and confirmed with US. Worsening SOB makes subsequent PEs likely. Whether this is idiopathic vs provoked is less clear as there is hx of surgery 8 months ago and increasingly sedentary lifestyle. Began heparin/warfarin bridge with a goal INR of 2-3. Undecided if long-term prophylaxis is necessary, especially g iven her stroke hx. Min 3 months. - Pharmacy following - Continue heparin until warfarin is therapeutic - daily INR #AMARA Untreated AMARA. No CPAP due to claustrophobia.Weight gain could be worsening AMARA and causing further pulmonary/cardiac problems. Will monitor O2 overnight to determine AMARA severity and encourage use of O2 or CPAP. History of 2 sleep studies demonstrating mild AMARA (no records available). Overnight O2 monitoring showed the above results, there were an average of 3.2 e vents per hour, which is in the normal range on the AHI index. (normal <5/hr). - Follow for AMARA symptoms like fatigue, snoring # Intertriginous rash Likely suresh due to warm, moist region. Will treat at current sites of irritation under s kin folds. If pruritus or rash develops around other places, can treat those as well. Sympto matic improvement with nystatin and pillow cases. - Nystatin powder #Bilateral LE swelling and skin changes Likely a combination of decompensated R HF and chronic venous insufficiency, which can lead to heaviness, swelling, leg pain and skin changes. Less likely cellulitis. - Elevate legs for symptom relief - 100 mg IV lasix BID - APAP TID, ice, heat - Oxycodone 5-10 mg q 4hrs PRN pain #Morbid obesity with rapid weight gain With an ~100 lb wt gain over 8 months and RV dysfxn on her NICOLA, sudden wt gain is most like ly due to deterioration in her CV status. This can present with anasarca and overtime, progr ess to LE skin changes/breakdown. Other possible differentials include non-pathological weig ht gain from inactivity following surgeries, torsemide resistance, pickwickian syndrome (OHS ), MONROE or nephrotic syndrome. Her serum alb is 3. No protein in urine and kidneys responded well to furosemide with normal BUN and Cr. - Monitor strict I&O - Monitor daily weight - encourage walking and movement #Anemia, chronic H/H: 9.3/31.6, borderline microcytic. Iron studies consistent with iron deficiecny anemia. (Iron 37, TIBC 11, Ferritin 18). Will start with oral supplementation. - Consider IV iron sucrose 200 mg IV daily x 5 days. #DM2 with associate diabetic neuropathy Questionably controlled DM with neuropathy controlled by gabapentin. - Moderate ISS (insulin sliding scale) - continue home gabapentin 300 mg QID #Bipolar disorder with associated depression and anxiety Anxiety is exacerbated with episodes of dyspnea and CP. Continue home medications. - alprazolam 1mg TID prn (xanax) - fluoxetine 40mg po qday (SSRI prozac) - olanzapine 30mg po qhs (antipsychotic) #Hypothyroidism TSH in the hospital was 3.93 (WNL). - continue home thyroid 30mg po daily #Migraine Headaches Currently on topiramate for control. - topiramate 200mg po bid JEFFREY Gee-S2 [facility] PA Student Feeding: <2L fluid, Diabetic diet, >2g na Analgesia: APAP, gabapentin, hydrocodone Thromboembolic prophylaxis: Heparin/warfarin Glycemic control: moderate ISS Mobility: Encourage walking and movement Discharge: Expect hospital stay another 5-7 days with diuresis until more euvolemic and R h eart cath can be completed. Code status: FULL Associated attestation - Yosef Segovia - 11/12/2015 4:40 PM PDTI have read the ceferinoen t note by PA student Dara and agree with the assessment and plan he has outlined. General: morbidly obese, resting comfortably in bed. HEENT: unable to assess JVP, notable for dilated veins on face Lungs: clear to auscultation anteriorly Heart: rrr, no murmurs or gallops Abd: abdominal wall firm, right sided tenderness Ext: pitting edema, mild LE erythema bilaterally, no pain with passive ROM of hips Skin: Erythematous line across proximal tibia, erythematous beefy erythematous region with circumscribed borders and satellite patches under left pannus Brief plan: -Continue diuresis with IV Lasix 100mg BID, repleting K and Mg as needed -Still awaiting therapeutic INR, still bridging with heparin. Will discuss tomorrow with ph armacy if apixiban is appropriate for this patient. -Consider starting IV iron -Left groin pain is new. UA was negative, does have a history of stones. Exam not concernin g for hip involvement. Will continue to monitor. -Anticipate several more days of diuresis. Will involve cardiology for consideration of RHC before discharge. VQ perfusion scan to assess for chronic VTE lung disease. Yosef Segovia MD PGY-1 Internal Medicine [id number] Rucker MD - 11/11/2015 9:19 PM PDTGENERAL MEDICINE ATTENDING PROGRESS NOTE ADMIT DATE: 11/06/2015 6:40 PM TODAY'S DATE: 11/11/2015 (HOSPITAL DAY 5) Patient seen/examined by me, chart reviewed, case discussed with team. See Dr. Segovia's note for full details of HPI- ROS as noted, otherwise negative. I spent > 25 minutes in sujata ent care with > 50% in counseling/coordination of care. Poor diuresis so increased lasix; fe rritin 18, needs investigation, consider IV iron Assessment and Plan: Patients Hospital Problem List: Active Hospital Problems 1) *Anasarca 2) Acute DVT (deep venous thrombosis) -- left mid & distal femoral vein, and popliteal vei n 3) Edema and weight gain 4) Severe Morbid obesity (HCC), BMI 88 5) AMARA (obstructive sleep apnea) 6) Hypoventilation associated with obesity (HCC) 7) Type 2 diabetes mellitus (HCC) 8) Iron deficiency anemia due to chronic blood loss 9) Hypoalbuminemia (no proteinuria, need to rule out synthetic, nutrition, loss) 10) Hypothyroidism 11) Right heart failure (HCC) 12) Candidal intertrigo Anticipated DC and DC needs: Anticipate prolonged diuresis then RHC Mannie Larkin MD Clinical Vice President Payer, Internal Medicine Pager [phone] ERColleen Diamond - 10/25 6:40 AM PDT PHYSICIAN LAWN CARE WORKER STUDENT PROGRESS NOTE FOR EDUCATIONAL PURPOSES ONLY INPATIENT PROGRESS NOTE PATIENT INFORMATION Patient Name: Elzbieta Cristina Date of : 1975 Date of Admission: 11/06/2015 PCP: Fadi Goodrich DO Room/Bed: Attending Provider: Mannie Larkin MD Encounter Information Date of Service: 11/08/2015 Hospital Day #: 5 Last 24hrs: - PT 11/09: Demonstrated capacity to re-enter her home and return to ADLs. Recommend dischar ge home with assistance as needed with outpatient PT referral. - Overnight oximetry on RA report: desaturation event = decrease of 4+ O2% 18 desaturation events >3 min 22 desaturation events <3 min with mean high 95.6%; mean low 89% Events/hr >10s = 3.2 Total time: SpO2 in 90's = 97%; 80's = 1.1%; 70's = 0.1% Subjective: - Continues to feel like her breathing is improving. - Thinks her skin under her "skirt" is feeling better with use of nystatin and pillow-cases . - Her bilateral LE pain and left knee still hurt but are improving, still thinks her PRN ox y is necessary Objective PHYSICAL EXAMINATION Last 24 hour min/max Temp: 36.6 C (97.9 F) Temp Min: 36.4 C (97.5 F) Max: 36.8 C (98.2 F) Pulse: 100 Pulse Min: 93 Max: 129 Resp: 20 Resp Min: 20 Max: 26 BP: 111/76 mmHg BP Min: 107/61 Max: 119/67 SpO2: 94 % SpO2 Min: 94 % Max: 100 % Body mass index is 76.1 kg/(m^2). 11/05: 473 lb (214.5 kg) 11/06: 461 lb (209.426 kg) 11/07: 449 lb (203.892 kg) 11/08: 438 lb (198.675 kg) 11/09: 402 lb (182.6 kg)- likely inaccurate as pt used railings for support. 11/10: 436 lb (197.859 kg)- balanced without support on scale Net Hospital wt loss: -37 lbs Intake/Output Summary (Last 24 hours) at 11/11/15 1024 Last data filed at 11/11/15 1000 Gross per 24 hour Intake 1896 ml Output 3800 ml Net -1904 ml Constitutional: Pleasant, non-toxic appearing female in NAD. HEENT: Head: Normocephalic and atraumatic. Eyes: EOMI, no scleral icterus Mouth/Throat: oropharynx clear, mmm Neck : Full ROM. Neck supple. Unable to appreciate jugular venous pressure CV: Tachy, regular rhythm, no m/r/g. Radial and pedal pulses 2+ bilat. Pulmonary/Chest: CTA. No crackles. No respiratory distress. Abdominal: Soft. Bowel sounds are normal. Tender over ventral hernia on right abd, otherwis e NTTP. There is no rebound and no guarding. Musculoskeletal: bilat LE tender to palpation, strength equal bilaterally. Neuro: A & O to person, place, month and situation. Normal strength, intact distal sensatio n to light touch. CN II- XII intact. Skin: Warm, dry. Bilat LE swelling. 1-2 inch petechial horizontal stripe across proximal ti peterson, improving. Red, beefy erythematous regions with circumscribed borders under both bilate ral pannus. Some skin breakdown in places, no ulceration or purulent drainage. Psych: normal mood and affect DATA Chemistries: Last 72 Hours (or 3 results) - Refreshable Recent Labs 11/09/15 0618 11/09/15 1401 11/10/15 0405 11/10/15 2315 11/11/15 0439 11/11/15 0959 NA 142 -- -- -- 141 -- -- 141 -- K 3.7 -- 3.8 -- 3.6 -- -- 3.5 -- CL 111* -- -- -- 109* -- -- 108 -- BICARB 24 -- -- -- 24 -- -- 23 -- BUN 14 -- -- -- 15 -- -- 18 -- CR 0.84 -- -- -- 0.83 -- -- 0.84 -- GLU 121* < > -- < > 131* < > 158* 140* 141* CA 8.2* -- -- -- 8.4* -- -- 8.7 -- MG 2.3 -- -- -- 2.2 -- -- 2.3 -- < > = values in this interval not displayed. CXR/ECG NML. Echo: LV normal. RV moderately enlarged w/mod reduced systolic fxn. RA 5; RVSP 28. INR: 1.23, not therapeutic Heparin 0.44 WNL K: 3.5 Mag 2.3 WNL ASSESSMENT/PLAN In summary, Elzbieta Cristina, a 40 year old morbidly obese female with untreated AMARA who pr esented with severe YO, 100 lb unintended weight gain and bilat LE pain and erythema, found to have a LLE DVT, new RV dysfunction and anasarca, currently being bridged to coumadin and diuresed. # Decompensated right sided heart failure # Dyspnea on exertion # Anasarca TTE showed moderate LV dysfunction. Her chronic diagnosed, but untreated AMARA, could have le d to pulmonary HTN and subsequent LV changes. UOP has declined on 60 mg IV lasix, will incre ase dose to try and maintain a goal of 2-4 L / day. Will watch Mag and K levels and provide oral K if <4.0. When she becomes more euvolemic, will consider in patient right heart cath t o evaluate for pulmonary hypertension. - 100 mg IV Lasix BID - AM BMP + Mag - PM serum K lab - Monitor strict I&O's - Daily weights - Continue PO Mag oxide tab daily - 60 mEq Oral K - Consider R heart cath once patient is closer to euvolemia # LLE DVT (idopathic vs provoked) Asymmetric LE pain and swelling was suspicious for DVT and confirmed with US. Worsening SOB makes subsequent PEs likely. Whether this is idiopathic vs provoked is less clear as there is hx of surgery 8 months ago and increasingly sedentary lifestyle. Began heparin/warfarin bridge with a goal INR of 2-3. Undecided if long-term prophylaxis is necessary, especially birgit miller her stroke hx. Min 3 months. - Pharmacy following for heparin/warfarin bridge- they are increasing dose to 10 mg warfari n - Continue heparin until warfarin is therapeutic - daily INR #AMARA Untreated AMARA. No CPAP due to claustrophobia.Weight gain could be worsening AMARA and causing further pulmonary/cardiac problems. Will monitor O2 overnight to determine AMARA severity and encourage use of O2 or CPAP. History of 2 sleep studies demonstrating mild AMARA (no records available). Overnight O2 monitoring showed the above results, there were an average of 3.2 e vents per hour, which is in the normal range on the AHI index. (normal <5/hr) - Follow for AMARA symptoms like fatigue, snoring # Intertriginous rash Likely suresh due to warm, moist region. Will treat at current sites of irritation under s kin folds. If pruritus or rash develops around other places, can treat those as well. Sympto matic improvement with nystatin and pillow cases. - Nystatin powder #Bilateral LE swelling and skin changes Likely a combination of decompensated R HF and chronic venous insufficiency, which can lead to heaviness, swelling, leg pain and skin changes. Less likely cellulitis. - Elevate legs for symptom relief - 100 mg IV lasix BID - APAP TID, ice, heat - Oxycodone 5-10 mg q 4hrs PRN pain #Morbid obesity with rapid weight gain With an ~100 lb wt gain over 8 months and RV dysfxn on her NICOLA, sudden wt gain is most like ly due to deterioration in her CV status. This can present with anasarca and overtime, progr ess to LE skin changes/breakdown. Other possible differentials include non-pathological weig ht gain from inactivity following surgeries, torsemide resistance, pickwickian syndrome (OHS ), MONROE or nephrotic syndrome. Her serum alb is 3. No protein in urine and kidneys responded well to furosemide with normal BUN and Cr. - Monitor strict I&O - Consult PT/OT with possible trapeze - Monitor daily weight - encourage walking and movement #Anemia, chronic H/H: 9.3/31.6, borderline microcytic. Iron studies consistent with iron deficiecny anemia. (Iron 37, TIBC 11, Ferritin 18). Will start with oral supplementation. - PO Ferrous Sulfate #DM2 with associate diabetic neuropathy Questionably controlled DM with neuropathy controlled by gabapentin. - Moderate ISS (insulin sliding scale) - continue home gabapentin 300 mg QID #Bipolar disorder with associated depression and anxiety Anxiety is exacerbated with episodes of dyspnea and CP. Continue home medications. - alprazolam 1mg TID prn (xanax) - fluoxetine 40mg po qday (SSRI prozac) - olanzapine 30mg po qhs (antipsychotic) #Hypothyroidism TSH in the hospital was 3.93 (WNL). - continue home thyroid 30mg po daily #Migraine Headaches Currently on topiramate for control. - topiramate 200mg po bid JEFFREY Gee-S2 [employer] PA Student Feeding: <2L fluid, Diabetic diet, >2g na Analgesia: APAP, gabapentin, hydrocodone Thromboembolic prophylaxis: Heparin/warfarin Glycemic control: moderate ISS Mobility: Encourage walking and movement Discharge: Expect hospital stay another 5-7 days with diuresis until more euvolemic and R h eart cath can be completed. Code status: FULL Associated attestation - Yosef Segovia - 11/11/2015 3:31 PM PDThave read the excellent note by PA student Dara and agree with the assessment and plan he has outlined. Brief plan: -Increase furosemide dose to IV 100mg BID as patient had less response to diuresis yesterda y. -Checking BMP, Mg daily. Check afternoon K -Continue heparin gtt as we bridge to therapeutic warfarin dose -Overnight continuous pulse oximetry did not show evidence of AMARA, although still concerned -Patient does not tolerate PO iron due to constipation, will consider IV iron while she is here -Scheduled tylenol, ice/heat, and ambulation for leg pain Yosef Segovia MD PGY-1 Internal Medicine [id number] Maria Eugenia Leiva RCP - 11/11/2015 6:39 AM PDTOvernight oximetry performed on RA. Oximetry d ownloaded. at [place] MD - 11/10/2015 4:10 PM PDTGENERAL MEDICINE ATTENDING PROGRESS NOTE ADMIT DATE: 11/06/2015 6:40 PM TODAY'S DATE: 11/10/2015 (HOSPITAL DAY 4) I personally interviewed the patient, performed the de la cruz elements of the physical examinatio n, and personally formulated the assessment and plan with the resident. See resident note f or details. ROS as noted, otherwise negative. 40 yo woman with morbid obesity admitted with massive fluid overload, presumed AMARA. She is diuresing well, getting ON sleep study by RT- bobbi briscoe about RHC when euvolemic. Assessment and Plan: Patients Hospital Problem List: Active Hospital Problems 1) *Edema and weight gain 2) Morbid obesity (HCC) 3) Type 2 diabetes mellitus (HCC) 4) AMARA (obstructive sleep apnea) 5) Hypoventilation associated with obesity (HCC) 6) Anasarca 7) Acute venous embolism and thrombosis of deep vessels of distal end of left lower extrem ity (HCC) 8) Right heart failure (HCC) 9) DVT (deep venous thrombosis), left (HCC) 10) Candidal intertrigo Anticipated DC and needs: Anticipate another 5-7 days Mannie Larkin MD Clinical Vice President Payer, Internal Medicine Pager [phone] Yosef Fang - 7:24 AM PDT General Internal Medicine 1 Progress Note Elzbieta Cristina is a 40 y/o morbidly obese woman with hx of DM2, HTN, hypothyroidism, and untreated AMARA who presented with severe YO, rapid weight gain found to have LLE DVT and rig ht sided heart failure on TTE being aggressively diuresed. 24 Hour Events: -Slept ok, having persistent pain in b/l lower extremities -Net -4.3L yesterday -Weight down to 402lb, (down 70 lb from admission) -PT to see patient today -Per patient, overnight pulse ox was not working Physical Examination: Last 24 hour min/max Temp: 36.7 C (98.1 F) Temp Min: 36.6 C (97.9 F) Max: 36.7 C (98.1 F) Pulse: 95 Pulse Min: 95 Max: 107 Resp: (!) 28 Resp Min: 28 Max: 28 BP: 117/63 mmHg BP Min: 113/55 Max: 135/64 SpO2: 92 % SpO2 Min: 92 % Max: 97 % Body mass index is 82.8 kg/(m^2). General: morbidly obese, resting comfortably in bed. HEENT: unable to assess JVP, notable for dilated veins on face Lungs: clear to auscultation anteriorly Heart: rrr, no murmurs or gallops Abd: abdominal wall firm, right sided tenderness Ext: pitting edema, mild LE erythema bilaterally Skin: Erythematous line across proximal tibia. Red, beefy erythematous region with circumsc ribed borders and satellite patches under left pannus Laboratory Interpretation: Chemistries: Last 72 Hours (or 3 results): Recent Labs 11/08/15 0627 11/09/15 0618 11/09/15 1401 11/09/15 1951 11/09/15 2243 11/10/15 0405 NA 141 -- 142 -- -- -- -- -- 141 K 4.0 < > 3.7 -- 3.8 -- -- -- 3.6 CL 112* -- 111* -- -- -- -- -- 109* BICARB 20* -- 24 -- -- -- -- -- 24 BUN 14 -- 14 -- -- -- -- -- 15 CR 0.83 -- 0.84 -- -- -- -- -- 0.83 GLU 145* < > 121* < > -- < > 102* 166* 131* CA 8.5* -- 8.2* -- -- -- -- -- 8.4* MG 2.1 -- 2.3 -- -- -- -- -- 2.2 < > = values in this interval not displayed. INR 1.13 Iron 37 TIBC 11 Ferritin 18 Assessment and Plan # Decompensated right sided heart failure # Dyspnea on exertion TTE showed moderate RV dysfunction. Her chronic diagnosed, but untreated AMARA, could have le d to pulmonary HTN and subsequent RV changes. She has had good responses to IV lasix, will c ontinue BID with a goal of 2-4 L / day. Once she is closer to euvolemia will consider inpati ent right heart cath in order to evaluate for pulmonary hypertension. - 60 mg Lasix BID - AM BMP + Mag - PM serum K lab - Monitor strict I&O's - Daily weights - consider R heart cath once patient is closer to euvolemia #LLE DVT Asymmetric LE pain and swelling was suspicious for DVT and confirmed with US. Worsening SOB makes subsequent PEs likely. Whether this is idiopathic vs provoked is less clear as there is hx of surgery 8 months ago and increasingly sedentary lifestyle. Began heparin/warfarin b ridge with a goal INR of 2-3. Undecided if long-term prophylaxis is necessary, especially gi yuriy her stroke hx. Min 3 months. - Continue Heparin gtt until INR therapeutic - Warfarin dosed per pharmacy - daily INR #AMARA, untreated Untreated AMARA. No CPAP due to claustrophobia.Weight gain could be worsening AMARA and causing further pulmonary/cardiac problems. Will monitor O2 overnight to determine AMARA severity and encourage use of O2 or CPAP. - Continuous O2 sat monitoring overnight by RT # Rash under skin folds Likely suresh due to warm, moist region. Will treat at current site of irritation. If prur itus or rash develops around other places, can treat those as well. - Nystatin powder #Bilateral LE swelling and skin changes Likely a combination of decompensated R HF and chronic venous insufficiency, which can lead to heaviness, swelling, leg pain and skin changes. Less likely cellulitis. - Elevate legs for symptom relief - 60 mg IV lasix BID - APAP TID, ice, heat - Continue oxycodone 5-10mg Q4h prn #Anemia, chronic H/H: 9.3/31.6. Iron studies consistent with iron deficiency anemia. Will start with oral supplementation. - PO ferrous sulfate #DM2 with associate diabetic neuropathy Questionably controlled DM with neuropathy controlled by gabapentin. - Moderate ISS (insulin sliding scale) - continue home gabapentin 300 mg QID #Bipolar disorder with associated depression and anxiety Anxiety is exacerbated with episodes of dyspnea and CP. Continue home medications. - alprazolam 1mg TID prn (xanax) - fluoxetine 40mg po qday (SSRI prozac) - olanzapine 30mg po qhs (antipsychotic) #Hypothyroidism TSH in the hospital was 3.93 (WNL). - continue home thyroid 30mg po bid #Migraine Headaches Currently on topiramate for control. - topiramate 200mg po bid Pt was discussed with my attending Dr Larkin who agrees with my plan. Yosef Segovia MD PGY-1 Internal Medicine [id number] signed by Yosef Segovia at 11/10/2015 2:50 PM Lawrence Vines MD - 11/09/2015 2:10 PM [facility]TGENER[facility] MEDICINE ATTENDING PROGRESS NOTE ADMIT DATE: 11/06/2015 6:40 PM TODAY'S DATE: 11/09/2015 (HOSPITAL DAY 3) I personally interviewed the patient, performed the de la cruz elements of the physical examinatio n, have developed an updated assessment and plan together with the resident, Dr. Segovia/P V[employer] student Dara. I agree with the plans as documented. Has a bit of a cough, nonproductive. No other new sx. Urinating a lot. Exam BP 135/64 | Pulse 96 | Temp 36.6 C (97.9 F) | RR 28 | Ht 1.549 m (5' 1") | Wt 198.675 k g (438 lb) | SpO2 97% | BMI 82.8 kg/(m^2) Largely unchanged Large area of well demarcated erythema with some maceration and surrounding satellite lesio ns on abd pannus, L side. Malodorous. Creat stable K 3.7 Patients Hospital Problem List: Active Hospital Problems 1) *Edema and weight gain 2) Morbid obesity (HCC) 3) Type 2 diabetes mellitus (HCC) 4) AMARA (obstructive sleep apnea) 5) Hypoventilation associated with obesity (HCC) 6) Anasarca 7) Acute venous embolism and thrombosis of deep vessels of distal end of left lower extrem ity (HCC) 9) Right heart failure (HCC) 10) DVT (deep venous thrombosis), left (HCC) 11) Candidal intertrigo-treating 40 yo woman with morbid obesity, untreated AMARA and obesity hypoventilation admitted for 100 lb unintentional weight gain and found to have new RV dysfunction, anasarca as well as a new LLE DVT. On heparin gtt for latter. Plans - keep for iv diuresis. Consider R heart cath onc e a bit leather drier. In terms of AMARA - does not tolerate CPAP historically. Likely CPAP will be ve ry important for her going forward. Will try overnight oximetry here to assess severity. Discharge planning:Anticipate several days in house. I spent >35 min of which >50% was spent in counseling and coordination of care. Briana Perez MD [facility] Division of Hospital Medicine Grisel Mcghee NP - 11/09/2015 10:18 AM PDT I met with Ms. Cristina today and gave her a large talking scale to monitor daily weights. Heart failure education provided to patient. We specifically discussed disease process and symptom recognition and reporting, daily weights and recording, heart failure medications a nd the importance of a 2 Gm sodium diet. I discussed sleep apnea and DM control for her type of heart failure. Advanced Care Plan Note Date: 11/09/2015 Present for Conversation: Grisel Pearl NP, Elzbieta Cristina Surrogate Decision Maker Primary Surrogate Decision Maker Katalina Padilla [facility] [phone] Advanced Directives Existence of Advanced Directive Reviewed: No- Has Interest (11/09/15 1022) Advanced Directives Reviewed Comments: I gave a copy of advance directives (11/09/15 1022) KRISHNA Huertas NP [facility] [address] [facility] [address] [place] [id number] Colleen Tello - 6:41 AM PDT PHYSICIAN LAWN CARE WORKER STUDENT PROGRESS NOTE FOR EDUCATIONAL PURPOSES ONLY INPATIENT PROGRESS NOTE PATIENT INFORMATION Patient Name: Elzbieta Cristina Date of : 1975 Date of Admission: 11/06/2015 PCP: Fadi Goodrich DO Room/Bed: Attending Provider: Briana Perez MD Encounter Information Date of Service: 11/08/2015 Hospital Day #: 3 Last 24hrs: Given 10 mg oxycodone overnight for left leg pain. Nystatin powder placed under pannus for skin irritation 40 mEq potassium given last night at 1900 following a drop from 4.0 to 3.7 post diuresis Lab results: - Urine HCG: negative Subjective: L leg pain worse. Oxycodone helps but only lasts a few hours. Otherwise feels good and stat es she is not getting as SOB when she gets up. Her anxiety about walking is going away as we ll. Objective PHYSICAL EXAMINATION Last 24 hour min/max Temp: 36.6 C (97.9 F) Temp Min: 36.5 C (97.7 F) Max: 36.7 C (98.1 F) Pulse: 98 Pulse Min: 98 Max: 106 Resp: 18 Resp Min: 18 Max: 24 BP: 120/51 mmHg BP Min: 120/51 Max: 137/84 SpO2: 93 % SpO2 Min: 93 % Max: 100 % Body mass index is 87.28 kg/(m^2). Weight 11/08: 449 lb (203.8 kg) Weight 11/06: 467.7 lb (209.4 kg) Weight 11/05: 473 lb (214.5 kg) Net Difference: -24 lbs Intake/Output Summary (Last 24 hours) at 11/09/15 1357 Last data filed at 11/09/15 1300 Gross per 24 hour Intake 1473 ml Output 4750 ml Net -3277 ml Constitutional: Pleasant, non-toxic appearing female in NAD. HEENT: Head: Normocephalic and atraumatic. Eyes: EOMI, no scleral icterus Mouth/Throat: oropharynx clear, mmm Neck : Full ROM. Neck supple. Unable to appreciate jugular venous pressure CV: Tachy, regular rhythm, no m/r/g. Radial and pedal pulses 2+ bilat. Pulmonary/Chest: CTA. No crackles. No respiratory distress. Abdominal: Soft. Bowel sounds are normal. Tender over ventral hernia on right abd, otherwis e NTTP. There is no rebound and no guarding. Musculoskeletal: bilat LE tender to palpation, strength equal bilaterally. Neuro: A & O to person, place, month and situation. Normal strength, intact distal sensatio n to light touch. CN II- XII intact. Skin: Warm, dry. Bilat LE swelling. 1-2 inch erythematous stripe across horizontal proximal tibia. Red, beefy erythematous region with circumscribed borders and satellite patches unde r left pannus. Psych: normal mood and affect DATA Chemistries: Last 72 Hours (or 3 results) - Refreshable Recent Labs 11/07/15 0317 11/07/15 1149 11/08/15 0627 11/08/15 1702 11/08/15 1908 11/08/15 2303 11/09/15 0618 NA 142 -- 142 -- 141 -- -- -- -- 142 K 4.2 -- 3.8 -- 4.0 -- 3.7 -- -- 3.7 CL 114* -- 109* -- 112* -- -- -- -- 111* BICARB 21 -- 23 -- 20* -- -- -- -- 24 BUN 15 -- 15 -- 14 -- -- -- -- 14 CR 0.91 -- 0.93 -- 0.83 -- -- -- -- 0.84 GLU 147* < > 154* < > 145* < > -- 144* 158* 121* CA 8.7 -- 8.6 -- 8.5* -- -- -- -- 8.2* MG 1.9 -- -- -- 2.1 -- -- -- -- 2.3 < > = values in this interval not displayed. CXR/ECG NML. Echo: LV normal. RV moderately enlarged w/mod reduced systolic fxn. RA 5; RVSP 28. No leukocytosis INR: 1.2 Ma.3 K: 3.7 WNL Ca: 8.2 (L) ASSESSMENT/PLAN In summary, Elzbieta Cristina, a 40 year old morbidly obese female with untreated AMARA who pr esented with severe YO, 100 lb unintended weight gain and bilat LE pain and erythema, found to have a LLE DVT, new RV dysfunction and anasarca, currently being bridged to coumadin and diuresed. # Decompensated right sided heart failure # Dyspnea on exertion # Anasarca TTE showed moderate LV dysfunction. Her chronic diagnosed, but untreated AMARA, could have le d to pulmonary HTN and subsequent LV changes. This would account for her anasarca and worsen ing SOB because chronic dz could lead to reduced CO and poor perfusion over time. She has rodrigues d good responses to IV lasix, will continue BID with a goal of 2-4 L / day. - 60 mg Lasix BID - AM 40meq potassium - AM BMP + Mag - PM serum K lab - Monitor strict I&O's - Daily weights - Continue Mag oxide tab daily - consider R heart cath once there is more diuresis # DVT (idopathic vs provoked) with associated leg pain Asymmetric LE pain and swelling was suspicious for DVT and confirmed with US. Worsening SOB makes subsequent PEs likely. Whether this is idiopathic vs provoked is less clear as there is hx of surgery 8 months ago and increasingly sedentary lifestyle. Began heparin/warfarin bridge with a goal INR of 2-3. Undecided if long-term prophylaxis is necessary, especially birgit miller her stroke hx. Min 3 months. - Pharmacy following for heparin/warfarin bridge - Heparin gTT - Warfarin - daily INR - Pain management of scheduled APAP and ice/heat - Scheduled Oxycodone 5-10mg q 4hrs PRN - PICC line placement - problems with placing a continuous heparin drip and will likely be in house for a week #AMARA, untreated Untreated AMARA. No CPAP due to claustrophobia.Weight gain could be worsening AMARA and causing further pulmonary/cardiac problems. Will monitor O2 overnight to determine AMARA severity and encourage use of O2 or CPAP. - Continuous O2 sat monitoring overnight # Rash under skin folds Likely suresh due to warm, moist region. Will treat at current site of irritation. If prur itus or rash develops around other places, can treat those as well. - Nystatin powder #Morbid obesity with rapid weight gain With an ~100 lb wt gain over 8 months and RV dysfxn on her NICOLA, sudden wt gain is most like ly due to deterioration in her CV status. This can present with anasarca and overtime, progr ess to LE skin changes/breakdown. Other possible differentials include non-pathological weig ht gain from inactivity following surgeries, torsemide resistance, pickwickian syndrome (OHS ), MONROE or nephrotic syndrome. Her serum alb is 3. No protein in urine and kidneys responded well to furosemide with normal BUN and Cr. - Monitor strict I&O - Consult PT/OT with possible trapeze - Monitor daily weight - encourage walking and movement #Bilateral LE swelling and skin changes Likely a combination of decompensated R HF and chronic venous insufficiency, which can lead to heaviness, swelling, leg pain and skin changes. Less likely cellulitis. - Elevate legs for symptom relief - 60 mg IV lasix BID - APAP TID, ice, heat #Anemia, chronic H/H: 9.3/31.6. Her baseline hb is chronically b/w 9's and 11's. She is also boarderline eva rocytic at MCV 80.5, suggesting possible iron deficiency. Should also consider other nutrien t deficiencies like b12 or folate. She has no source of acute blood loss and anemia of asset administrator ela dz and thalassemia is less likely. She does not take an Iron supplement but tries to eat a balanced diet that includes protein, veggies, dairy and some grains. - TIBC and serum ferratin - repeat CBCs q2-3 days for monitoring #DM2 with associate diabetic neuropathy Questionably controlled DM with neuropathy controlled by gabapentin. - Moderate ISS (insulin sliding scale) - continue home gabapentin 300 mg QID #Bipolar disorder with associated depression and anxiety Anxiety is exacerbated with episodes of dyspnea and CP. Continue home medications. - alprazolam 1mg TID prn (xanax) - fluoxetine 40mg po qday (SSRI prozac) - olanzapine 30mg po qhs (antipsychotic) #Hypothyroidism TSH in the hospital was 3.93 (WNL). - continue home thyroid 30mg po bid #Migraine Headaches Currently on topiramate for control. - topiramate 200mg po bid JEFFREY Gee-S2 [employer] PA Student Feeding: <2L fluid, Diabetic diet Analgesia: APAP, gabapentin Thromboembolic prophylaxis: Heparin/warfarin Glycemic control: moderate ISS Mobility: Encourage walking and movement Discharge: Expect hospital stay ~1 week with goal of diuresing to patient's dry weight Code status: FULL Associated attestation - Yosef Segovia - 11/09/2015 6:37 PM PDTI have read the licha t note written by PA student Colleen Diamond and agree with her assessment and plan. I have no emely any changes or additions in my brief plan below. Brief plan: -Continue aggressive diuresis with Lasix 60mg IV twice daily (goal of 2-3 L net negative) -Check BMP, Mg each morning, K re-check in PM -Repleting electrolytes Mg>2, K>4 -Daily weights, strict I/Os, 2L fluid restriction -Overnight pulse ox with continuous monitoring -Continue anticoagulation with heparin gtt, awaiting warfarin to become therapeutic -Ordered iron studies for tomorrow AM Yosef Segovia MD PGY-1 Internal Medicine [id number] Briana Perez MD - 11/08/2015 2:01 PM [facility] ATTENDING PROGRESS NOTE ADMIT DATE: 11/06/2015 6:40 PM -late entry for 11/07 TODAY'S DATE: 11/08/2015 (HOSPITAL DAY 2) I personally interviewed the patient, performed the de la cruz elements of the physical examinatio n, have developed an updated assessment and plan together with the [facility] resident, Dr. Hair/MS 3 Dara. I agree with the plans as documented. Diursed well overnight. L leg somewhat painful today. No change in redness. Exam BP 137/84 | Pulse 105 | Temp 36.6 C (97.9 F) | RR 20 | Ht 1.549 m (5' 1") | Wt 209.426 kg (461 lb 11.2 oz) | SpO2 100% | BMI 87.28 kg/(m^2) Unchanged exam vs yesterday. Still unable to read JVP TTE results reviewed K, creat stable Net neg 4L + Patients Hospital Problem List: Active Hospital Problems 1) *Edema and weight gain 2) Morbid obesity (HCC) 3) Type 2 diabetes mellitus (HCC) 4) AMARA (obstructive sleep apnea) 5) Hypoventilation associated with obesity (HCC) 6) Anasarca 7) Acute venous embolism and thrombosis of deep vessels of distal end of left lower extrem ity (HCC) 8) Right heart failure (HCC) TTE confirms RV dysfunction which is likely due to untreated AMARA, obesity hypoventilation. Cannot exclude acute/subacute PE as contributing as well. Would not change our mgmt of diure tics and anticoagulation. Discharge planning:Anticipating prolonged stay for diuresis. Consider R heart cath once dry . I spent >35 min of which >50% was spent in counseling and coordination of care. Briana Perez MD [facility] Division of Hospital Medicine olleen Diamond - 11/08/2015 6:26 AM PDT PHYSICIAN LAWN CARE WORKER STUDENT PROGRESS NOTE FOR EDUCATIONAL PURPOSES ONLY INPATIENT PROGRESS NOTE PATIENT INFORMATION Patient Name: Elzbieta Cristina Date of : 1975 Date of Admission: 11/06/2015 PCP: Fadi Goodrich DO Room/Bed: Attending Provider: Briana Perez MD Encounter Information Date of Service: 11/08/2015 Hospital Day #: 2 Last 24hrs: No acute changes overnight Subjective: Feels ok today, though her left leg really hurts. Her headache has improved and she denies SOB, CP, abd discomfort. Objective PHYSICAL EXAMINATION Last 24 hour min/max Temp: 36.7 C (98.1 F) Temp Min: 36.6 C (97.9 F) Max: 36.8 C (98.2 F) Pulse: 107 Pulse Min: 94 Max: 107 Resp: 20 Resp Min: 18 Max: 25 BP: 137/84 mmHg BP Min: 128/76 Max: 149/69 SpO2: 100 % SpO2 Min: 95 % Max: 100 % Body mass index is 87.28 kg/(m^2). Weight History and Pepe 11/06/2014 12/26/2014 2015 04/03/2015 Weight 173.818 kg 175.587 kg 170.4 kg 175.088 kg Weight History and Pepe 04/09/2015 11/05/2015 11/06/2015 11/06/2015 Weight 183.752 kg 213.871 kg 214.551 kg 214.551 kg Weight History and Pepe 11/07/2015 Weight 209.426 kg Intake/Output Summary (Last 24 hours) at 11/08/15 1422 Last data filed at 11/08/15 1403 Gross per 24 hour Intake 1307 ml Output 4000 ml Net -2693 ml Constitutional: Pleasant, non-toxic appearing female in NAD. HEENT: Head: Normocephalic and atraumatic. Eyes: EOMI, no scleral icterus Mouth/Throat: oropharynx clear, mmm Neck : Full ROM. Neck supple. Unable to appreciate jugular venous pressure CV: Tachy, regular rhythm, no m/r/g. Radial and pedal pulses 2+ bilat. Pulmonary/Chest: brief inspiratory wheeze at LLL, none today, otherwise CTA. No crackles. No respiratory distress. Abdominal: Soft. Bowel sounds are normal. Tender over ventral hernia on right abd, otherwis e NTTP. There is no rebound and no guarding. Musculoskeletal: bilat LE tender to palpation, strength equal bilaterally. Neuro: A & O to person, place, month and situation. Normal strength, intact distal sensatio n to light touch. CN II- XII intact. Skin: Warm, dry. bilat lower extremity erythema. Psych: normal mood and affect DATA CBC with diff last 72 hours (or 3 results) - Refreshable Recent Labs 11/06/15 1331 11/07/15 0456 11/08/15 0627 WBC 14.02* 10.49 10.12 HB 10.3* 9.0* 9.3* HCT 34.9* 30.1* 31.6* PLT 307 255 243 NEUTROPERC 63.1 -- -- LYMPHPERC 21.3 -- -- MONOPERC 7.7 -- -- BASOPERC 0.9 -- -- EOSPERC 6.1* -- -- Chemistries: Last 72 Hours (or 3 results) - Refreshable Recent Labs 11/06/15 1331 11/07/15 0317 11/07/15 1149 11/07/15 1731 11/07/15 2143 11/08/15 0627 NA 139 142 -- 142 -- -- -- 141 K 5.1* 4.2 -- 3.8 -- -- -- 4.0 CL 110* 114* -- 109* -- -- -- 112* BICARB 20* 21 -- 23 -- -- -- 20* BUN 16 15 -- 15 -- -- -- 14 CR 0.82 0.91 -- 0.93 -- -- -- 0.83 GLU 126* 147* < > 154* < > 126* 141* 145* CA 9.1 8.7 -- 8.6 -- -- -- 8.5* MG 1.9 1.9 -- -- -- -- -- 2.1 < > = values in this interval not displayed. Liver Tests: Last 72 hours (or 3 results) Recent Labs 11/06/15 1331 AST 45* ALT 29 TBILI 0.3 AP 114* ALB 3.0* TP 7.7 No leukocytosis, BNP/Trop/ECG/lactate normal. CXR clear. BNP 11/05: 64 INR Today 1.2 (increased from 1.14 yesterdy) TSH: 3.93 Mag & K WNL BUN, CR: WNL UA: Few non-squamous and amorphous crystals, trace leukocyte esterase, 3 RBCs. No bacteria, casts, protein or nitrites or ketones. Imaging: CXR: 11/06: Clear. Normal heart, clear lungs. No pleural effusion, pulmonary edema or PTX. ECG 11/06: Normal ECG, nml sinus rhythm Echo: LV cavity size and ejection fraction is normal RV size moderately enlarged, with moderately reduced RV systolic function. Trace tricuspid and pulmonary valve regurgitation. Normal mitral, pulmonic and aortic jose ve. Duplex Venous US: R: normal L: Occlusive thrombus in mid and distal femoral vein and popliteal vein. Nonocclusive thr ombus in left posterior tibial vein. Bilat common femoral veins patent. RSVT 28. ASSESSMENT/PLAN In summary, Elzbieta Cristina, a 40 year old morbidly obese female with AAMRA who presented wi th severe YO, rapid weight gain and bilat LE pain and erythema, found to have a LLE DVT and mod RV dysfunction, currently being bridged to coumadin and diuresed. # Decompensated right sided heart failure # Dyspnea on exertion # Anasarca TTE showed moderate LV dysfunction. Her chronic diagnosed, but untreated AMARA, could have le d to pulmonary HTN and subsequent LV changes. This would account for her anasarca and worsen ing SOB because chronic dz could lead to reduced CO and poor perfusion over time. Yesterday 120 mg lasix diuresed over 4L. Will dose at 60 mg IV today and evaluate response with a goal of 2-3 L/day. Due to her history of AMARA (not on CPAP) will monitor pulse O2 sats overnight and place on supplemental O2 if there are significant desaturation events. - 60 mg lasix today, may re-dose in the afternoon - Monitor strict I&O's - Daily weights - Afternoon serum K - AM BMP + Mag # DVT (idopathic vs provoked) Asymmetric LE pain and swelling was suspicious for DVT and confirmed with US. Worsening SOB makes subsequent PEs likely. Whether this is idiopathic vs provoked is less clear as there is hx of surgery 8 months ago and increasingly sedentary lifestyle (d/t SOB). We can easily begin acute DVT tx but will have to decide if long-term prophylactic is warranted with her stroke hx. At min, it will be 3 months. Will consider warfarin vs other agents that do not r equire as much monitoring. Must also consider as a hypercoagulable state as her la st embolic event occurred shortly after delivery. She is currently using the LARC implant bu t efficacy can be reduced with higher BMIs. - Heparin gTT - Warfarin 5mg QHS - daily INR - Urine HCG - Pain management of scheduled APAP and ice/heat #Morbid obesity with rapid weight gain With an approximately 100 lb wt gain over 8 months and RV dysfxn on her NICOLA, sudden wt gain is possibly due to deterioration in her cardiovascular status. This can present with anasar ca and overtime, progress to LE skin changes/breakdown. Other possible differentials include non-pathological weight gain from inactivity following surgeries, effect of her chronic hyp othyroidism (recent normal TSH), torsemide resistance, pickwickian syndrome (OHS), MONROE or n ephrotic syndrome. Her serum alb is 3. No protein in urine and kidneys responded well to fur osemide with normal BUN and Cr. - Monitor strict I&O - Monitor daily weight - encourage walking and movement #Anemia, chronic H/H: 9.3/31.6. Her baseline hb appears to swing between high 9's and 11's chronically. She is also boarderline microcytic at MCV 80.5, suggesting possible iron deficiency. Should also consider other possible nutrient deficiencies like b12 or folate. She has no source of acu te blood loss and anemia of chronic dz and thalassemia is less likely. She does not take an Iron supplement but tries to eat a balanced diet that includes protein, veggies, dairy and s ome grains. - TIBC and serum ferratin - repeat CBCs q2-3 days for monitoring #Bilateral LE swelling and skin changes Possibly related to venous insufficiency or effect of decompensated right heart failure. Le ss likely cellulitis as it is bilateral, non-responsive to abx and she is afebrile with a no rmal white count. Chronic venous insufficiency can present with bilateral skin changes with a sense of heaviness, swelling and leg pain. These skin changes could also be due to swellin g caused by fluid retention from heart failure, especially because her recent TTE showed red uced RV systolic function. - DC Vancomycin abx - Elevate legs above the heart for symptom relief - IV 60 lasix for diuresis #DM2 with associate diabetic neuropathy Questionably controlled DM. Obtaining an A1C would not change our inpatient tx so using SSI is fine. - Given her associated "burning" that is improved with gabapentin, it may be good to keep h er on it. - Moderate ISS (insulin sliding scale) - continue home gabapentin 300 mg QID #Bipolar disorder with associated depression and anxiety Anxiety is exacerbated with episodes of dyspnea and CP. Recommend continuation of home medi cations. - alprazolam 1mg TID prn (xanax) - fluoxetine 40mg po qday (SSRI prozac) - olanzapine 30mg po qhs (antipsychotic) #Hypothyroidism TSH in the hospital was 3.93 (WNL). - continue armour thyroid 30mg po bid #Migraine Headaches Currently on topiramate for control. - topiramate 200mg po bid (topamax, nerve pain) JEFFREY Gee-S2 [facility] PA Student Feeding: <2L fluid, Diabetic diet Analgesia: APAP, gabapentin Thromboembolic prophylaxis: Heparin/warfarin Glycemic control: moderate ISS Mobility: Encourage walking and movement Code status: FULL Associated attestation - Magdalene Hair MD, MSc - 11/08/2015 5:40 PM PDTI have read the exc ellent note written by PA student Colleen Diamond and agree with her assessment and plan. I rodrigues ve noted any changes or additions in my brief plan below. Plan in brief: -- continue diuresis with 60mg lasix IV twice daily (goal of 2-3 L net negative) -- afternoon/chery potassium check, morning bmp and Mg -- f/u ferritin and iron studies -- daily weights, strict I/Os, 2L fluid restriction -- request records from PCP (sleep study in particular) -- scheduled tylenol, ice/heat, and ambulation for leg pain -- restart zyprexa 30mg daily for bipolar disease (this has been a stable dose years) -- continue anticoag bridge with heparin and warfarin -- PICC line today Magdalene Hair Md, MSc Internal Medicine PGY2 Pager [phone] Kwadwo Freire - 11/07/2015 2:05 PM PDTTransthoracic echocardiogram completed. Final rep ort to follow. ichael Segovia - 11/07/2015 12:53 PM PDT General Internal Medicine 1 Progress Note 24 Hour Events: -Admitted overnight see H&P Current Symptoms: -Patient states she has gained 100lbs since February. -Over the past 1-2 months, has not been responding to her Torsemide as much -Legs have never improved with antibiotics Physical Examination: Last 24 hour min/max Temp: 36.8 C (98.2 F) Temp Min: 36.7 C (98.1 F) Max: 37.3 C (99.1 F) Pulse: (!) 100 Pulse Min: 97 Max: 115 Resp: 18 Resp Min: 16 Max: 20 BP: 128/63 mmHg BP Min: 128/63 Max: 153/117 SpO2: 98 % SpO2 Min: 93 % Max: 100 % Body mass index is 89.42 kg/(m^2). Intake/Output Summary (Last 24 hours) at 11/07/15 1836 Last data filed at 11/07/15 1400 Gross per 24 hour Intake 250 ml Output 5100 ml Net -4850 ml General: morbidly obese, resting comfortably in bed. HEENT: unable to assess JVP, notable for dilated veins on face Lungs: clear to auscultation anteriorly Heart: rrr, no murmurs or gallops Abd: abdominal wall firm, right sided tenderness Ext: pitting edema, mild LE erythema bilaterally Laboratory Interpretation: Chemistries: Last 72 Hours (or 3 results): Recent Labs 11/06/15 1331 11/07/15 0317 11/07/15 1149 11/07/15 1226 11/07/15 1550 11/07/15 1731 NA 139 142 -- 142 -- -- -- K 5.1* 4.2 -- 3.8 -- -- -- CL 110* 114* -- 109* -- -- -- BICARB 20* 21 -- 23 -- -- -- BUN 16 15 -- 15 -- -- -- CR 0.82 0.91 -- 0.93 -- -- -- GLU 126* 147* < > 154* 164* 128* 126* CA 9.1 8.7 -- 8.6 -- -- -- MG 1.9 1.9 -- -- -- -- -- < > = values in this interval not displayed. NT-pro BNP 64 Troponin <0.02 UA: tace LE, no protein Imaging Interpretation: 11/05 CXR 2v IMPRESSION: Clear lungs 11/06 US doppler LE IMPRESSION: Abnormal Doppler ultrasound exam of the left lower extremity venous system with occlusive thrombus seen within the mid and distal femoral vein and popliteal vein. Nonocclusive thrombus in left posterior tibial vein. Bilateral common femoral veins patent. 11/06 TTE + + Final Impressions: 1. The interpretation of images is limited by poor acoustic windows. 2. The left ventricular cavity size is normal. 3. The LV ejection fraction is normal. 4. The right ventricular size is moderately enlarged. 5. Moderately reduced RV systolic function. 6. There are no prior exams available for comparison. + + Assessment and Plan Elzbieta Cristina is a 40 year old woman w/ hx of DM2, HTN, AMARA, hypothyroidism, bipolar dis order, and morbid obesity who presented for severe YO, rapid weight gain with fluid retenti on found to have DVT and evidence of reduced RV function on TTE. #Subacute weight gain #Severe YO Most likely etiology at this point is undiagnosed, untreated decompensated heart failure. E vidence of reduced RV function on TTE, so possible that patient has R sided heart failure an d PHTN from untreated AMARA or obesity hypoventilation syndrome. UA is negative for protein, r uling out nephrotic syndrome. Patient on zyprexa but is a longstand medication, no recent ch anges. Will continue to diurese aggressively. Monitor response to IV Lasix 120mg today, and determine need for BID dosing tomorrow. -IV Lasix 120mg today -Strict I/Os -2g Na, 2L fluid restriciton -BMP, Mg daily (or BID if more frequent Lasix dosing) #DVT Etiology is unclear at this point, certainly at risk given her deconditioning and immobilit y. Will treat with heaprin gtt and bridge with warfarin. Considered NOACs but unclear how ef ficacious they are in morbidly obese population. Considered CT scan but unsure who would bigg nged management at this point given she is hemodynamically stable. -Heparin gtt -Warfarin 5mg QPM -Daily INR #LE erythema No evidence of cellulitis and patient not improving with antibiotics. More likely venous st asis from fluid retention and obesity. -D/c vanc #Typical angina Unclear etiology, EKG reassuring, trop neg, TTE w/o WMA. -Consider outpatient stress test #DMII - Insulin NPH 70/30 100u QHS - reduce down to 75U to start in AM as BG 120 this PM - moderate ISS - hold metformin #Depression #Anxiety Continue home meds - alprazolam 1mg TID prn - fluoxetine 40mg po qday - topiramate 200mg po bid - olanzapine 30mg po qhs #Hypothyroidism - continue armour thyroid 30mg po bid #Chronic pain - cont gabapentin 300mg QID Pt was discussed with my attending Dr Perez who agrees with my plan. Yosef Segovia MD PGY-1 Internal Medicine [id number] [email or web address] - 016 8:43 AM PDT PHYSICIAN LAWN CARE WORKER STUDENT PROGRESS NOTE FOR EDUCATIONAL PURPOSES ONLY INPATIENT PROGRESS NOTE PATIENT INFORMATION Patient Name: Elzbieta Cristina Date of : 1975 Date of Admission: 11/06/2015 PCP: Fadi Goodrich DO Room/Bed: ED803/803 Attending Provider: Carmelina Tucker PA-C Encounter Information Date of Service: 11/07/2015 Hospital Day #: 1 ID: Elzbieta Cristina, a 40 year old female with hx of DMII, HTN, AMARA, hypothyroidism, bipol ar disorder, stroke and morbid obesity (BMI 89) who presente to the ED by requets of Endocri ne (Dr. Randell Franks) for severe dyspnea on exertion (YO), rapid weight gain with fluid retention and suspected cellulitis. HPI: Patient has a history of exertional dyspnea, SOB and chest pain that was relieved with rest . Over the last month, her dyspnea and SOB have significantly worsened and chest pain with p alpitations have increased in frequency to 4-5x/day, occurring both with exertion and at res t. Other than seasonal allergies, she denies any history of heart or lung problems. Within the last month, she has also noticed increased lower extremity leg pain, left worse than right with bilateral redness and swelling. This was initially thought to be cellulitis and treated with multiple ABX including doxy, clinda, cephalexin and septra, without improve ment. She doesn't believe she's had any fevers and denies recent travel, trauma or personal coagulation disorders. Finally, she describes increased weight gain since February (8 months ago) that totals about 100lbs with associated fluid retention, swelling and "puffiness". This was around the same t susy as an incisional hernia repair (february) and sinus surgery (mar), with subsequent reduct ion in activity as well as a trial of lorcaserin (Belviq) for weight loss which she quickly stopped after it "increased her appetite". She had previously successfully reduced weight f rom 475 to 387 lbs with PT and exercise in preparation for bariatric surgery. ED Admisison Upon admission to the ED, there were suspicions of DVT and decompensated heart failure for which a Duplex US and TTE were ordered, in addition to normal labwork. Today, she developed a headache that is similar to her typical chronic migraines with assoc iated photophobia and blurry vision, which she attributes to missing her topamax or not havi ng caffeine. REVIEW OF SYSTEMS: Endorses chronic migraine headaches, one of which is currently present. Denies immediate CP , N/V/D/C, hematuria, hematochezia. Objective PHYSICAL EXAMINATION Last 24 hour min/max Temp: 36.8 C (98.2 F) Temp Min: 36.7 C (98.1 F) Max: 36.8 C (98.2 F) Pulse: (!) 101 Pulse Min: 97 Max: 105 Resp: 19 Resp Min: 16 Max: 20 BP: 128/63 mmHg BP Min: 129/96 Max: 153/117 SpO2: 97 % SpO2 Min: 93 % Max: 100 % Body mass index is 89.42 kg/(m^2). Intake/Output Summary (Last 24 hours) at 11/07/15 1836 Last data filed at 11/07/15 1400 Gross per 24 hour Intake 250 ml Output 5100 ml Net -4850 ml Constitutional: Pleasant, non-toxic appearing female in NAD. HEENT: Head: Normocephalic and atraumatic. Eyes: EOMI, no scleral icterus Mouth/Throat: oropharynx clear, mmm Neck : Full ROM. Neck supple. Unable to appreciate jugular venous pressure CV: Tachy, regular rhythm, no m/r/g. Radial and pedal pulses 2+ bilat. Pulmonary/Chest: brief inspiratory wheeze at LLL, otherwise CTA. No crackles. No respirato ry distress. Abdominal: Soft. Bowel sounds are normal. Tender over ventral hernia on right abd, otherwis e NTTP. There is no rebound and no guarding. Musculoskeletal: bilat LE tender to palpation, strength equal bilaterally. Neuro: A & O to person, place, month and situation. Normal strength, intact distal sensatio n to light touch. CN II- XII intact. Skin: Warm, dry. bilat lower extremity erythema. Psych: normal mood and affect CURRENT IP MEDICATIONS ascorbic acid 500 mg DAILY [START ON 11/08/2015] ergocalciferol 50,000 Units Once per day on Thu FLUoxetine 60 mg DAILY gabapentin 300 mg QID insulin lispro QID insulin NPH 75 Units BEFORE BREAKFAST magnesium oxide 400 mg DAILY OLANZapine 30 mg HS thyroid 30 mg DAILY topiramate 200 mg BID warfarin 5 mg QPM ALPRAZolam 1 mg TID PRN dextrose 50 % in water 25 mL PRN glucagon 1 mg PRN glucose chewable 16 g PRN oxyCODONE (immediate release) 5-10 mg Q4H PRN polyethylene glycol 34 g TID PRN DATA CBC with diff last 72 hours (or 3 results) - Refreshable Recent Labs 11/06/15 1331 11/07/15 0456 WBC 14.02* 10.49 HB 10.3* 9.0* HCT 34.9* 30.1* PLT 307 255 NEUTROPERC 63.1 -- LYMPHPERC 21.3 -- MONOPERC 7.7 -- BASOPERC 0.9 -- EOSPERC 6.1* -- Chemistries: Last 72 Hours (or 3 results) - Refreshable Recent Labs 11/06/15 1331 11/07/15 0317 11/07/15 1149 11/07/15 1226 11/07/15 1550 11/07/15 1731 NA 139 142 -- 142 -- -- -- K 5.1* 4.2 -- 3.8 -- -- -- CL 110* 114* -- 109* -- -- -- BICARB 20* 21 -- 23 -- -- -- BUN 16 15 -- 15 -- -- -- CR 0.82 0.91 -- 0.93 -- -- -- GLU 126* 147* < > 154* 164* 128* 126* CA 9.1 8.7 -- 8.6 -- -- -- MG 1.9 1.9 -- -- -- -- -- < > = values in this interval not displayed. Liver Tests: Last 72 hours (or 3 results) Recent Labs 11/06/15 1331 AST 45* ALT 29 TBILI 0.3 AP 114* ALB 3.0* TP 7.7 INR (baseline): 1.14. Normal, not therapeutic. TSH: 3.93, normal (ref 0.39-4.17) BNP: 64, normal BUN: 15, nml; CR: 0.93, nml No leukocytosis, BNP/Trop/ECG/lactate normal. CXR clear. UA: UA micro: Few squamous. Few non-squamous epithelial. Few amorphous crystals. No casts, ca oxylate or uric acid crystals. Cultures: UA pending Imaging: CXR: 11/06: Clear. Normal heart, clear lungs. No pleural effusion, pulmonary edema or PTX. ECG 11/06: Normal ECG, nml sinus rhythm Echo: LV cavity size and ejection fraction is normal RV size moderately enlarged, with moderately reduced RV systolic function. Trace tricuspid and pulmonary valve regurgitation. Normal mitral, pulmonic and aortic valv e. Duplex Venous US: R: normal L: Occlusive thrombus in mid and distal femoral vein and popliteal vein. Nonocclusive thro mbus in left posterior tibial vein. Bilat common femoral veins patent. ASSESSMENT/PLAN In summary, Elzbieta Cristina, a 40 year old female with hx of DM2, HTN, AMARA, hypothyroidism , bipolar disorder, stroke and morbid obesity (BMI 89) who presente to the ED by requets of Endocrine (Dr. Randell Franks) for severe dyspnea on exertion (YO), rapid weight gain wit h fluid retention and suspected cellulitis or DVT. # DVT (idopathic vs provoked) Asymmetric LE pain and swelling was suspicious for DVT and confirmed with US. Worsening SOB makes subsequent PEs likely. Whether this is idiopathic vs provoked is less clear as there is hx of surgery 8 months ago and increasingly sedentary lifestyle (d/t SOB). We can easily begin acute DVT tx but will have to decide if long-term prophylactic is warranted with her stroke hx. At min, it will be 3 months. Will consider warfarin vs other agents that do not r equire as much monitoring. One thing that I don't want to ignore, even if it is extremely low on the differential is p regnancy as it can cause a hypercoagulable state. She has a nexplanon but is sexually active and there is known reduction in efficacy with obese women using LARCs. - Heparin gTT - Warfarin 5mg QHS - daily INR - Urine HCG - If compression is too painful, daily walking and movement will be beneficial #Bilateral LE swelling and skin changes Possibly related to venous insufficiency or effect of decompensated right heart failure. Le ss likely cellulitis as it is bilateral, non-responsive to abx and she is afebrile with a no rmal white count. Chronic venous insufficiency can present with bilateral skin changes with a sense of heaviness, swelling and leg pain. These skin changes could also be due to swellin g caused by fluid retention from heart failure, especially because her recent TTE showed red uced RV systolic function. - DC Vancomycin abx - Elevate legs above the heart for symptom relief - IV lasix for diuresis - compression stockings? # Decompensated right sided heart failure # Dyspnea on exertion # Angina # Pulmonary HTN NICOLA showed slight RV enlargement with reduced systolic fxn. Right sided HF is supported by the clear CXR (no signs of pulm edema) and normal BNP (although an article suggests using > 54 as a cutoff for higher sensitivity with obese pts). She does have anasarca and has a history of nausea. Other symptoms to watch for would be a scites and hepatomegaly as pressure affects the portal system. This can continue to back up and cause increased abd girth and GI symptoms that include nausea, epigastric and RUQ pain, constipation. While dyspnea is a little uncommon with R HF, late stages of pulmonary HTN and pulmonary t hromboembolic dz, severe dyspnea may occur due to reduced cardiac output and poor perfusion. - consider US to evaluate liver ([id number] fatty liver dz) and look for ascites. - Diuresis with lasix, although we want to be careful because diuresis can reduce pre-load and R HF causes pulmonary HTN so reducing pre-load too quickly could reduce cardiac output. - strict I&O, daily weights #Morbid obesity with rapid weight gain With an approximately 100 lb wt gain over 8 months and RV dysfxn on her NICOLA, sudden wt gain is possibly due to deterioration in her cardiovascular status. This can present with anasar ca and overtime, progress to LE skin changes/breakdown. Other possible differentials include non-pathological weight gain from inactivity followin g surgeries. Or she has hypothyroidism but has had a recent normal TSH. torsemide resistance (if she is not responding as well as in the past), Pickwickian syndrome (obesity hypoventillation (OHS)) - prevalence increases with increasi ng BMI (>30) and hypoxemia and AMARA with AMARA like symptoms- hypersomolence, impaired tamiko ntration, small oropharynx, thick neck. May consider MONROE (non-alcoholic fatty liver dz) although only 40 years old, possibly neph rotic syndrome to be thourough. Albumin slightly low 3.0, maybe contributing. Kidneys respon ded well to furosemide and normal BUN, Cr. - Continue diuresis with large bolus of lasix (120 mg IV) with careful monitoring for effec t of reduced pre-load if she is in decomp R HF. - Monitor strict I&O - Monitor daily weight - continue or D/C phentermine?? For weight loss - encourage walking and movement #DM2 with associate diabetic neuropathy- VERIFY CONTROL STATUS Questionably controlled DM. Obtaining an A1C would not change our inpatient tx so using SSI is fine. - Given her associated "burning" that is improved with gabapentin, it may be good to keep h er on it. - Moderate ISS (insulin sliding scale) - continue home gabapentin 300 mg QID #Bipolar disorder with associated depression and anxiety Anxiety is exacerbated with episodes of dyspnea and CP. Recommend continuation of home medi cations. - alprazolam 1mg TID prn - fluoxetine 40mg po qday - topiramate 200mg po bid - olanzapine 30mg po qhs #Hypothyroidism TSH in the hospital was 3.93 (WNL). - continue armour thyroid 30mg po bid JEFFREY Gee-S2 [facility] PA Student Feeding: <2L fluid, <2g Na Analgesia: APAP, ibuprofen, gabapentin, topamax? Thromboembolic prophylaxis: Heparin/warfarin Glycemic control: moderate ISS Mobility: Encourage walking and movement Code status: documented in this encou nter Plan of Treatment +--------+---------+ + + + | Date | Type | Specialty | Care Team | Description | +--------+---------+ + + + | 03/15/ | Office | Cardiology | Randell Franks, | | | 2019 | Visit | | [address] | | | | | | [facility] [place] | | | | | | [id number] | | | | | | [phone] | | | | | | | | +--------+---------+ + + + documented as of this encounter Procedures + +--------+ + + + | Procedure Name | Priori | Date/Time | Associated Diagnosis | Comments | | | ty | | | | + +--------+ + + + | CAPILLARY BLOOD | Routin | 11/21/2015 | Cellulitis of left | Results for this | | GLUCOSE (NO CHG), | e | 9:22 AM | lower extremity | procedure are in the | | POC | | PDT | | results section. | + +--------+ + + + | INR | Urgent | 11/21/2015 | | Results for this | | | | 6:27 AM | | procedure are in the | | | | PDT | | results section. | + +--------+ + + + | BASIC METABOLIC SET | Routin | 11/21/2015 | | Results for this | | (NA, K, CL, TCO2, | e | 6:27 AM | | procedure are in the | | BUN, CR, GLU, CA) | | PDT | | results section. | + +--------+ + + + | MAGNESIUM, PLASMA | Routin | 11/21/2015 | | Results for this | | | e | 6:27 AM | | procedure are in the | | | | PDT | | results section. | + +--------+ + + + | CAPILLARY BLOOD | Routin | 11/20/2015 | Cellulitis of left | Results for this | | GLUCOSE (NO CHG), | e | 9:52 PM | lower extremity | procedure are in the | | POC | | PDT | | results section. | + +--------+ + + + | CAPILLARY BLOOD | Routin | 11/20/2015 | Cellulitis of left | Results for this | | GLUCOSE (NO CHG), | e | 6:42 PM | lower extremity | procedure are in the | | POC | | PDT | | results section. | + +--------+ + + + | CAPILLARY BLOOD | Routin | 11/20/2015 | Cellulitis of left | Results for this | | GLUCOSE (NO CHG), | e | 1:18 PM | lower extremity | procedure are in the | | POC | | PDT | | results section. | + +--------+ + + + | CAPILLARY BLOOD | Routin | 11/20/2015 | Cellulitis of left | Results for this | | GLUCOSE (NO CHG), | e | 12:51 PM | lower extremity | procedure are in the | | POC | | PDT | | results section. | + +--------+ + + + | CAPILLARY BLOOD | Routin | 11/20/2015 | Cellulitis of left | Results for this | | GLUCOSE (NO CHG), | e | 9:27 AM | lower extremity | procedure are in the | | POC | | PDT | | results section. | + +--------+ + + + | INR | Urgent | 11/20/2015 | | Results for this | | | | 6:00 AM | | procedure are in the | | | | PDT | | results section. | + +--------+ + + + | BASIC METABOLIC SET | Routin | 11/20/2015 | | Results for this | | (NA, K, CL, TCO2, | e | 6:00 AM | | procedure are in the | | BUN, CR, GLU, CA) | | PDT | | results section. | + +--------+ + + + | FERRITIN | Routin | 11/20/2015 | | Results for this | | | e | 6:00 AM | | procedure are in the | | | | PDT | | results section. | + +--------+ + + + | MAGNESIUM, PLASMA | Routin | 11/20/2015 | | Results for this | | | e | 6:00 AM | | procedure are in the | | | | PDT | | results section. | + +--------+ + + + | CAPILLARY BLOOD | Routin | 11/19/2015 | Cellulitis of left | Results for this | | GLUCOSE (NO CHG), | e | 10:48 PM | lower extremity | procedure are in the | | POC | | PDT | | results section. | + +--------+ + + + | CAPILLARY BLOOD | Routin | 11/19/2015 | Cellulitis of left | Results for this | | GLUCOSE (NO CHG), | e | 5:47 PM | lower extremity | procedure are in the | | POC | | PDT | | results section. | + +--------+ + + + | INR | Urgent | 11/19/2015 | | Results for this | | | | 2:20 PM | | procedure are in the | | | | PDT | | results section. | + +--------+ + + + | BASIC METABOLIC SET | Routin | 11/19/2015 | | Results for this | | (NA, K, CL, TCO2, | e | 2:20 PM | | procedure are in the | | BUN, CR, GLU, CA) | | PDT | | results section. | + +--------+ + + + | MAGNESIUM, PLASMA | Routin | 11/19/2015 | | Results for this | | | e | 2:20 PM | | procedure are in the | | | | PDT | | results section. | + +--------+ + + + | CAPILLARY BLOOD | Routin | 11/19/2015 | Cellulitis of left | Results for this | | GLUCOSE (NO CHG), | e | 12:58 PM | lower extremity | procedure are in the | | POC | | PDT | | results section. | + +--------+ + + + | CAPILLARY BLOOD | Routin | 11/19/2015 | Cellulitis of left | Results for this | | GLUCOSE (NO CHG), | e | 9:41 AM | lower extremity | procedure are in the | | POC | | PDT | | results section. | + +--------+ + + + | CAPILLARY BLOOD | Routin | 11/18/2015 | Cellulitis of left | Results for this | | GLUCOSE (NO CHG), | e | 10:08 PM | lower extremity | procedure are in the | | POC | | PDT | | results section. | + +--------+ + + + | CAPILLARY BLOOD | Routin | 11/18/2015 | Cellulitis of left | Results for this | | GLUCOSE (NO CHG), | e | 6:09 PM | lower extremity | procedure are in the | | POC | | PDT | | results section. | + +--------+ + + + | POTASSIUM, PLASMA | Routin | 11/18/2015 | | Results for this | | | e | 2:25 PM | | procedure are in the | | | | PDT | | results section. | + +--------+ + + + | MAGNESIUM, PLASMA | Routin | 11/18/2015 | | Results for this | | | e | 2:25 PM | | procedure are in the | | | | PDT | | results section. | + +--------+ + + + | CAPILLARY BLOOD | Routin | 11/18/2015 | Cellulitis of left | Results for this | | GLUCOSE (NO CHG), | e | 12:44 PM | lower extremity | procedure are in the | | POC | | PDT | | results section. | + +--------+ + + + | CAPILLARY BLOOD | Routin | 11/18/2015 | Cellulitis of left | Results for this | | GLUCOSE (NO CHG), | e | 8:56 AM | lower extremity | procedure are in the | | POC | | PDT | | results section. | + +--------+ + + + | HEPARIN, EITHER | Urgent | 11/18/2015 | | Results for this | | STANDARD / LMW, | | 6:25 AM | | procedure are in the | | BLOOD | | PDT | | results section. | + +--------+ + + + | INR | Urgent | 11/18/2015 | | Results for this | | | | 6:25 AM | | procedure are in the | | | | PDT | | results section. | + +--------+ + + + | BASIC METABOLIC SET | Routin | 11/18/2015 | | Results for this | | (NA, K, CL, TCO2, | e | 6:25 AM | | procedure are in the | | BUN, CR, GLU, CA) | | PDT | | results section. | + +--------+ + + + | MAGNESIUM, PLASMA | Routin | 11/18/2015 | | Results for this | | | e | 6:25 AM | | procedure are in the | | | | PDT | | results section. | + +--------+ + + + | CAPILLARY BLOOD | Routin | 11/17/2015 | Cellulitis of left | Results for this | | GLUCOSE (NO CHG), | e | 10:15 PM | lower extremity | procedure are in the | | POC | | PDT | | results section. | + +--------+ + + + | CAPILLARY BLOOD | Routin | 11/17/2015 | Cellulitis of left | Results for this | | GLUCOSE (NO CHG), | e | 6:10 PM | lower extremity | procedure are in the | | POC | | PDT | | results section. | + +--------+ + + + | CAPILLARY BLOOD | Routin | 11/17/2015 | Cellulitis of left | Results for this | | GLUCOSE (NO CHG), | e | 2:34 PM | lower extremity | procedure are in the | | POC | | PDT | | results section. | + +--------+ + + + | CAPILLARY BLOOD | Routin | 11/17/2015 | Cellulitis of left | Results for this | | GLUCOSE (NO CHG), | e | 10:08 AM | lower extremity | procedure are in the | | POC | | PDT | | results section. | + +--------+ + + + | HEPARIN, EITHER | Urgent | 11/17/2015 | | Results for this | | STANDARD / LMW, | | 5:39 AM | | procedure are in the | | BLOOD | | PDT | | results section. | + +--------+ + + + | INR | Urgent | 11/17/2015 | | Results for this | | | | 5:39 AM | | procedure are in the | | | | PDT | | results section. | + +--------+ + + + | BASIC METABOLIC SET | Routin | 11/17/2015 | | Results for this | | (NA, K, CL, TCO2, | e | 5:39 AM | | procedure are in the | | BUN, CR, GLU, CA) | | PDT | | results section. | + +--------+ + + + | MAGNESIUM, PLASMA | Routin | 11/17/2015 | | Results for this | | | e | 5:39 AM | | procedure are in the | | | | PDT | | results section. | + +--------+ + + + | UA, DIPSTICK ONLY | Urgent | 11/16/2015 | | Results for this | | | | 10:31 PM | | procedure are in the | | | | PDT | | results section. | + +--------+ + + + | URINE, MICROSCOPIC | Routin | 11/16/2015 | | Results for this | | EXAM | e | 10:31 PM | | procedure are in the | | | | PDT | | results section. | + +--------+ + + + | CAPILLARY BLOOD | Routin | 11/16/2015 | Cellulitis of left | Results for this | | GLUCOSE (NO CHG), | e | 10:24 PM | lower extremity | procedure are in the | | POC | | PDT | | results section. | + +--------+ + + + | CAPILLARY BLOOD | Routin | 11/16/2015 | Cellulitis of left | Results for this | | GLUCOSE (NO CHG), | e | 6:24 PM | lower extremity | procedure are in the | | POC | | PDT | | results section. | + +--------+ + + + | CAPILLARY BLOOD | Routin | 11/16/2015 | Cellulitis of left | Results for this | | GLUCOSE (NO CHG), | e | 1:26 PM | lower extremity | procedure are in the | | POC | | PDT | | results section. | + +--------+ + + + | HEPARIN, EITHER | Urgent | 11/16/2015 | | Results for this | | STANDARD / LMW, | | 11:19 AM | | procedure are in the | | BLOOD | | PDT | | results section. | + +--------+ + + + | CAPILLARY BLOOD | Routin | 11/16/2015 | Cellulitis of left | Results for this | | GLUCOSE (NO CHG), | e | 8:36 AM | lower extremity | procedure are in the | | POC | | PDT | | results section. | + +--------+ + + + | HEPARIN, EITHER | Urgent | 11/16/2015 | | Results for this | | STANDARD / LMW, | | 3:08 AM | | procedure are in the | | BLOOD | | PDT | | results section. | + +--------+ + + + | INR | Urgent | 11/16/2015 | | Results for this | | | | 3:08 AM | | procedure are in the | | | | PDT | | results section. | + +--------+ + + + | BASIC METABOLIC SET | Routin | 11/16/2015 | | Results for this | | (NA, K, CL, TCO2, | e | 3:08 AM | | procedure are in the | | BUN, CR, GLU, CA) | | PDT | | results section. | + +--------+ + + + | MAGNESIUM, PLASMA | Routin | 11/16/2015 | | Results for this | | | e | 3:08 AM | | procedure are in the | | | | PDT | | results section. | + +--------+ + + + | CAPILLARY BLOOD | Routin | 11/15/2015 | Cellulitis of left | Results for this | | GLUCOSE (NO CHG), | e | 10:30 PM | lower extremity | procedure are in the | | POC | | PDT | | results section. | + +--------+ + + + | HEPARIN, EITHER | Urgent | 11/15/2015 | | Results for this | | STANDARD / LMW, | | 7:48 PM | | procedure are in the | | BLOOD | | PDT | | results section. | + +--------+ + + + | CAPILLARY BLOOD | Routin | 11/15/2015 | Cellulitis of left | Results for this | | GLUCOSE (NO CHG), | e | 6:08 PM | lower extremity | procedure are in the | | POC | | PDT | | results section. | + +--------+ + + + | HEPARIN, EITHER | Urgent | 11/15/2015 | | Results for this | | STANDARD / LMW, | | 1:55 PM | | procedure are in the | | BLOOD | | PDT | | results section. | + +--------+ + + + | CAPILLARY BLOOD | Routin | 11/15/2015 | Cellulitis of left | Results for this | | GLUCOSE (NO CHG), | e | 1:42 PM | lower extremity | procedure are in the | | POC | | PDT | | results section. | + +--------+ + + + | CAPILLARY BLOOD | Routin | 11/15/2015 | Cellulitis of left | Results for this | | GLUCOSE (NO CHG), | e | 8:40 AM | lower extremity | procedure are in the | | POC | | PDT | | results section. | + +--------+ + + + | CBC (HEMOGRAM) ONLY | Routin | 11/15/2015 | | Results for this | | | e | 5:49 AM | | procedure are in the | | | | PDT | | results section. | + +--------+ + + + | HEPARIN, EITHER | Urgent | 11/15/2015 | | Results for this | | STANDARD / LMW, | | 5:49 AM | | procedure are in the | | BLOOD | | PDT | | results section. | + +--------+ + + + | INR | Urgent | 11/15/2015 | | Results for this | | | | 5:49 AM | | procedure are in the | | | | PDT | | results section. | + +--------+ + + + | BASIC METABOLIC SET | Routin | 11/15/2015 | | Results for this | | (NA, K, CL, TCO2, | e | 5:49 AM | | procedure are in the | | BUN, CR, GLU, CA) | | PDT | | results section. | + +--------+ + + + | CBC ONLY | Routin | 11/15/2015 | | Results for this | | | e | 5:49 AM | | procedure are in the | | | | PDT | | results section. | + +--------+ + + + | MAGNESIUM, PLASMA | Routin | 11/15/2015 | | Results for this | | | e | 5:49 AM | | procedure are in the | | | | PDT | | results section. | + +--------+ + + + | CAPILLARY BLOOD | Routin | 11/14/2015 | Cellulitis of left | Results for this | | GLUCOSE (NO CHG), | e | 8:59 PM | lower extremity | procedure are in the | | POC | | PDT | | results section. | + +--------+ + + + | HEPARIN, EITHER | Urgent | 11/14/2015 | | Results for this | | STANDARD / LMW, | | 6:29 PM | | procedure are in the | | BLOOD | | PDT | | results section. | + +--------+ + + + | CAPILLARY BLOOD | Routin | 11/14/2015 | Cellulitis of left | Results for this | | GLUCOSE (NO CHG), | e | 5:56 PM | lower extremity | procedure are in the | | POC | | PDT | | results section. | + +--------+ + + + | CAPILLARY BLOOD | Routin | 11/14/2015 | Cellulitis of left | Results for this | | GLUCOSE (NO CHG), | e | 2:17 PM | lower extremity | procedure are in the | | POC | | PDT | | results section. | + +--------+ + + + | HEPARIN, EITHER | Urgent | 11/14/2015 | | Results for this | | STANDARD / LMW, | | 12:05 PM | | procedure are in the | | BLOOD | | PDT | | results section. | + +--------+ + + + | CAPILLARY BLOOD | Routin | 11/14/2015 | Cellulitis of left | Results for this | | GLUCOSE (NO CHG), | e | 9:42 AM | lower extremity | procedure are in the | | POC | | PDT | | results section. | + +--------+ + + + | HEPARIN, EITHER | Urgent | 11/14/2015 | | Results for this | | STANDARD / LMW, | | 4:19 AM | | procedure are in the | | BLOOD | | PDT | | results section. | + +--------+ + + + | INR | Urgent | 11/14/2015 | | Results for this | | | | 4:19 AM | | procedure are in the | | | | PDT | | results section. | + +--------+ + + + | BASIC METABOLIC SET | Routin | 11/14/2015 | | Results for this | | (NA, K, CL, TCO2, | e | 4:19 AM | | procedure are in the | | BUN, CR, GLU, CA) | | PDT | | results section. | + +--------+ + + + | MAGNESIUM, PLASMA | Routin | 11/14/2015 | | Results for this | | | e | 4:19 AM | | procedure are in the | | | | PDT | | results section. | + +--------+ + + + | CAPILLARY BLOOD | Routin | 11/13/2015 | Cellulitis of left | Results for this | | GLUCOSE (NO CHG), | e | 9:45 PM | lower extremity | procedure are in the | | POC | | PDT | | results section. | + +--------+ + + + | CAPILLARY BLOOD | Routin | 11/13/2015 | Cellulitis of left | Results for this | | GLUCOSE (NO CHG), | e | 6:48 PM | lower extremity | procedure are in the | | POC | | PDT | | results section. | + +--------+ + + + | CAPILLARY BLOOD | Routin | 11/13/2015 | Cellulitis of left | Results for this | | GLUCOSE (NO CHG), | e | 1:38 PM | lower extremity | procedure are in the | | POC | | PDT | | results section. | + +--------+ + + + | CAPILLARY BLOOD | Routin | 11/13/2015 | Cellulitis of left | Results for this | | GLUCOSE (NO CHG), | e | 9:03 AM | lower extremity | procedure are in the | | POC | | PDT | | results section. | + +--------+ + + + | CBC AND AUTO DIFF | Routin | 11/13/2015 | | Results for this | | | e | 5:44 AM | | procedure are in the | | | | PDT | | results section. | + +--------+ + + + | HEPARIN, EITHER | Urgent | 11/13/2015 | | Results for this | | STANDARD / LMW, | | 5:44 AM | | procedure are in the | | BLOOD | | PDT | | results section. | + +--------+ + + + | INR | Urgent | 11/13/2015 | | Results for this | | | | 5:44 AM | | procedure are in the | | | | PDT | | results section. | + +--------+ + + + | CBC, WITH | Routin | 11/13/2015 | | Results for this | | DIFFERENTIAL | e | 5:44 AM | | procedure are in the | | | | PDT | | results section. | + +--------+ + + + | LIVER SET | Routin | 11/13/2015 | | Results for this | | (AST,ALT,BILI | e | 5:44 AM | | procedure are in the | | TOTAL,BILI | | PDT | | results section. | | DIRECT,ALK | | | | | | PHOS,ALB,PROT TOTAL) | | | | | + +--------+ + + + | BASIC METABOLIC SET | Routin | 11/13/2015 | | Results for this | | (NA, K, CL, TCO2, | e | 5:44 AM | | procedure are in the | | BUN, CR, GLU, CA) | | PDT | | results section. | + +--------+ + + + | MAGNESIUM, PLASMA | Routin | 11/13/2015 | | Results for this | | | e | 5:44 AM | | procedure are in the | | | | PDT | | results section. | + +--------+ + + + | BASIC METABOLIC SET | Routin | 11/12/2015 | | Results for this | | (NA, K, CL, TCO2, | e | 11:47 PM | | procedure are in the | | BUN, CR, GLU, CA) | | PDT | | results section. | + +--------+ + + + | MAGNESIUM, PLASMA | Routin | 11/12/2015 | | Results for this | | | e | 11:47 PM | | procedure are in the | | | | PDT | | results section. | + +--------+ + + + | CAPILLARY BLOOD | Routin | 11/12/2015 | Cellulitis of left | Results for this | | GLUCOSE (NO CHG), | e | 10:32 PM | lower extremity | procedure are in the | | POC | | PDT | | results section. | + +--------+ + + + | CAPILLARY BLOOD | Routin | 11/12/2015 | Cellulitis of left | Results for this | | GLUCOSE (NO CHG), | e | 7:00 PM | lower extremity | procedure are in the | | POC | | PDT | | results section. | + +--------+ + + + | CAPILLARY BLOOD | Routin | 11/12/2015 | Cellulitis of left | Results for this | | GLUCOSE (NO CHG), | e | 1:27 PM | lower extremity | procedure are in the | | POC | | PDT | | results section. | + +--------+ + + + | CAPILLARY BLOOD | Routin | 11/12/2015 | Cellulitis of left | Results for this | | GLUCOSE (NO CHG), | e | 8:39 AM | lower extremity | procedure are in the | | POC | | PDT | | results section. | + +--------+ + + + | HEPARIN, EITHER | Urgent | 11/12/2015 | | Results for this | | STANDARD / LMW, | | 4:13 AM | | procedure are in the | | BLOOD | | PDT | | results section. | + +--------+ + + + | INR | Urgent | 11/12/2015 | | Results for this | | | | 4:13 AM | | procedure are in the | | | | PDT | | results section. | + +--------+ + + + | BASIC METABOLIC SET | Routin | 11/12/2015 | | Results for this | | (NA, K, CL, TCO2, | e | 4:13 AM | | procedure are in the | | BUN, CR, GLU, CA) | | PDT | | results section. | + +--------+ + + + | MAGNESIUM, PLASMA | Routin | 11/12/2015 | | Results for this | | | e | 4:13 AM | | procedure are in the | | | | PDT | | results section. | + +--------+ + + + | CAPILLARY BLOOD | Routin | 11/11/2015 | Cellulitis of left | Results for this | | GLUCOSE (NO CHG), | e | 10:19 PM | lower extremity | procedure are in the | | POC | | PDT | | results section. | + +--------+ + + + | HEPARIN, EITHER | Urgent | 11/11/2015 | | Results for this | | STANDARD / LMW, | | 10:03 PM | | procedure are in the | | BLOOD | | PDT | | results section. | + +--------+ + + + | UA, DIPSTICK ONLY | Routin | 11/11/2015 | | Results for this | | | e | 8:17 PM | | procedure are in the | | | | PDT | | results section. | + +--------+ + + + | URINE, MICROSCOPIC | Routin | 11/11/2015 | | Results for this | | EXAM | e | 8:17 PM | | procedure are in the | | | | PDT | | results section. | + +--------+ + + + | URINE SCREEN FOR | Routin | 11/11/2015 | | Results for this | | CULTURE | e | 8:17 PM | | procedure are in the | | | | PDT | | results section. | + +--------+ + + + | CAPILLARY BLOOD | Routin | 11/11/2015 | Cellulitis of left | Results for this | | GLUCOSE (NO CHG), | e | 5:49 PM | lower extremity | procedure are in the | | POC | | PDT | | results section. | + +--------+ + + + | CAPILLARY BLOOD | Routin | 11/11/2015 | Cellulitis of left | Results for this | | GLUCOSE (NO CHG), | e | 2:41 PM | lower extremity | procedure are in the | | POC | | PDT | | results section. | + +--------+ + + + | HEPARIN, EITHER | Urgent | 11/11/2015 | | Results for this | | STANDARD / LMW, | | 12:45 PM | | procedure are in the | | BLOOD | | PDT | | results section. | + +--------+ + + + | CAPILLARY BLOOD | Routin | 11/11/2015 | Cellulitis of left | Results for this | | GLUCOSE (NO CHG), | e | 9:59 AM | lower extremity | procedure are in the | | POC | | PDT | | results section. | + +--------+ + + + | HEPARIN, EITHER | Urgent | 11/11/2015 | | Results for this | | STANDARD / LMW, | | 4:47 AM | | procedure are in the | | BLOOD | | PDT | | results section. | + +--------+ + + + | INR | Routin | 11/11/2015 | | Results for this | | | e | 4:47 AM | | procedure are in the | | | | PDT | | results section. | + +--------+ + + + | BASIC METABOLIC SET | Routin | 11/11/2015 | | Results for this | | (NA, K, CL, TCO2, | e | 4:39 AM | | procedure are in the | | BUN, CR, GLU, CA) | | PDT | | results section. | + +--------+ + + + | MAGNESIUM, PLASMA | Routin | 11/11/2015 | | Results for this | | | e | 4:39 AM | | procedure are in the | | | | PDT | | results section. | + +--------+ + + + | CAPILLARY BLOOD | Routin | 11/10/2015 | Cellulitis of left | Results for this | | GLUCOSE (NO CHG), | e | 11:15 PM | lower extremity | procedure are in the | | POC | | PDT | | results section. | + +--------+ + + + | HEPARIN, EITHER | Urgent | 11/10/2015 | | Results for this | | STANDARD / LMW, | | 8:48 PM | | procedure are in the | | BLOOD | | PDT | | results section. | + +--------+ + + + | CAPILLARY BLOOD | Routin | 11/10/2015 | Cellulitis of left | Results for this | | GLUCOSE (NO CHG), | e | 8:19 PM | lower extremity | procedure are in the | | POC | | PDT | | results section. | + +--------+ + + + | CAPILLARY BLOOD | Routin | 11/10/2015 | Cellulitis of left | Results for this | | GLUCOSE (NO CHG), | e | 2:14 PM | lower extremity | procedure are in the | | POC | | PDT | | results section. | + +--------+ + + + | HEPARIN, EITHER | Urgent | 11/10/2015 | | Results for this | | STANDARD / LMW, | | 12:14 PM | | procedure are in the | | BLOOD | | PDT | | results section. | + +--------+ + + + | CAPILLARY BLOOD | Routin | 11/10/2015 | Cellulitis of left | Results for this | | GLUCOSE (NO CHG), | e | 9:10 AM | lower extremity | procedure are in the | | POC | | PDT | | results section. | + +--------+ + + + | HEPARIN, EITHER | Urgent | 11/10/2015 | | Results for this | | STANDARD / LMW, | | 4:05 AM | | procedure are in the | | BLOOD | | PDT | | results section. | + +--------+ + + + | INR | Urgent | 11/10/2015 | | Results for this | | | | 4:05 AM | | procedure are in the | | | | PDT | | results section. | + +--------+ + + + | BASIC METABOLIC SET | Routin | 11/10/2015 | | Results for this | | (NA, K, CL, TCO2, | e | 4:05 AM | | procedure are in the | | BUN, CR, GLU, CA) | | PDT | | results section. | + +--------+ + + + | FERRITIN | Routin | 11/10/2015 | | Results for this | | | e | 4:05 AM | | procedure are in the | | | | PDT | | results section. | + +--------+ + + + | MAGNESIUM, PLASMA | Urgent | 11/10/2015 | | Results for this | | | | 4:05 AM | | procedure are in the | | | | PDT | | results section. | + +--------+ + + + | IRON AND TIBC, SERUM | Routin | 11/10/2015 | | Results for this | | | e | 4:05 AM | | procedure are in the | | | | PDT | | results section. | + +--------+ + + + | CAPILLARY BLOOD | Routin | 11/09/2015 | Cellulitis of left | Results for this | | GLUCOSE (NO CHG), | e | 10:43 PM | lower extremity | procedure are in the | | POC | | PDT | | results section. | + +--------+ + + + | CAPILLARY BLOOD | Routin | 11/09/2015 | Cellulitis of left | Results for this | | GLUCOSE (NO CHG), | e | 7:51 PM | lower extremity | procedure are in the | | POC | | PDT | | results section. | + +--------+ + + + | X-RAY PORTABLE CHEST | Urgent | 11/09/2015 | | Results for this | | PICC LINE | | 3:12 PM | | procedure are in the | | CHECK | | PDT | | results section. | | | | | | | + +--------+ + + + | PROCEDURE NOTE | Routin | 11/09/2015 | | Results for this | | | e | 3:03 PM | | procedure are in the | | | | PDT | | results section. | + +--------+ + + + | CAPILLARY BLOOD | Routin | 11/09/2015 | Cellulitis of left | Results for this | | GLUCOSE (NO CHG), | e | 3:03 PM | lower extremity | procedure are in the | | POC | | PDT | | results section. | + +--------+ + + + | POTASSIUM, PLASMA | Routin | 11/09/2015 | | Results for this | | | e | 2:01 PM | | procedure are in the | | | | PDT | | results section. | + +--------+ + + + | CAPILLARY BLOOD | Routin | 11/09/2015 | Cellulitis of left | Results for this | | GLUCOSE (NO CHG), | e | 9:31 AM | lower extremity | procedure are in the | | POC | | PDT | | results section. | + +--------+ + + + | HEPARIN, EITHER | Urgent | 11/09/2015 | | Results for this | | STANDARD / LMW, | | 6:19 AM | | procedure are in the | | BLOOD | | PDT | | results section. | + +--------+ + + + | INR | Urgent | 11/09/2015 | | Results for this | | | | 6:19 AM | | procedure are in the | | | | PDT | | results section. | + +--------+ + + + | BASIC METABOLIC SET | Routin | 11/09/2015 | | Results for this | | (NA, K, CL, TCO2, | e | 6:18 AM | | procedure are in the | | BUN, CR, GLU, CA) | | PDT | | results section. | + +--------+ + + + | MAGNESIUM, PLASMA | Routin | 11/09/2015 | | Results for this | | | e | 6:18 AM | | procedure are in the | | | | PDT | | results section. | + +--------+ + + + | CAPILLARY BLOOD | Routin | 11/08/2015 | Cellulitis of left | Results for this | | GLUCOSE (NO CHG), | e | 11:03 PM | lower extremity | procedure are in the | | POC | | PDT | | results section. | + +--------+ + + + | CAPILLARY BLOOD | Routin | 11/08/2015 | Cellulitis of left | Results for this | | GLUCOSE (NO CHG), | e | 7:08 PM | lower extremity | procedure are in the | | POC | | PDT | | results section. | + +--------+ + + + | HCG QUAL, URINE | Routin | 11/08/2015 | | Results for this | | | e | 7:02 PM | | procedure are in the | | | | PDT | | results section. | + +--------+ + + + | POTASSIUM, PLASMA | Routin | 11/08/2015 | | Results for this | | | e | 5:02 PM | | procedure are in the | | | | PDT | | results section. | + +--------+ + + + | HEPARIN, EITHER | Urgent | 11/08/2015 | | Results for this | | STANDARD / LMW, | | 2:56 PM | | procedure are in the | | BLOOD | | PDT | | results section. | + +--------+ + + + | CAPILLARY BLOOD | Routin | 11/08/2015 | Cellulitis of left | Results for this | | GLUCOSE (NO CHG), | e | 1:00 PM | lower extremity | procedure are in the | | POC | | PDT | | results section. | + +--------+ + + + | CAPILLARY BLOOD | Routin | 11/08/2015 | Cellulitis of left | Results for this | | GLUCOSE (NO CHG), | e | 10:07 AM | lower extremity | procedure are in the | | POC | | PDT | | results section. | + +--------+ + + + | CAPILLARY BLOOD | Routin | 11/08/2015 | Cellulitis of left | Results for this | | GLUCOSE (NO CHG), | e | 8:54 AM | lower extremity | procedure are in the | | POC | | PDT | | results section. | + +--------+ + + + | HEPARIN, EITHER | Urgent | 11/08/2015 | | Results for this | | STANDARD / LMW, | | 8:16 AM | | procedure are in the | | BLOOD | | PDT | | results section. | + +--------+ + + + | CBC (HEMOGRAM) ONLY | Routin | 11/08/2015 | | Results for this | | | e | 6:27 AM | | procedure are in the | | | | PDT | | results section. | + +--------+ + + + | HEPARIN, EITHER | Routin | 11/08/2015 | | Results for this | | STANDARD / LMW, | e | 6:27 AM | | procedure are in the | | BLOOD | | PDT | | results section. | + +--------+ + + + | INR | Urgent | 11/08/2015 | | Results for this | | | | 6:27 AM | | procedure are in the | | | | PDT | | results section. | + +--------+ + + + | BASIC METABOLIC SET | Routin | 11/08/2015 | | Results for this | | (NA, K, CL, TCO2, | e | 6:27 AM | | procedure are in the | | BUN, CR, GLU, CA) | | PDT | | results section. | + +--------+ + + + | CBC ONLY | Routin | 11/08/2015 | | Results for this | | | e | 6:27 AM | | procedure are in the | | | | PDT | | results section. | + +--------+ + + + | MAGNESIUM, PLASMA | Routin | 11/08/2015 | | Results for this | | | e | 6:27 AM | | procedure are in the | | | | PDT | | results section. | + +--------+ + + + | HEPARIN, EITHER | Urgent | 11/08/2015 | | Results for this | | STANDARD / LMW, | | 12:41 AM | | procedure are in the | | BLOOD | | PDT | | results section. | + +--------+ + + + | CAPILLARY BLOOD | Routin | 11/07/2015 | Cellulitis of left | Results for this | | GLUCOSE (NO CHG), | e | 9:43 PM | lower extremity | procedure are in the | | POC | | PDT | | results section. | + +--------+ + + + | HEPARIN, EITHER | Urgent | 11/07/2015 | | Results for this | | STANDARD / LMW, | | 6:00 PM | | procedure are in the | | BLOOD | | PDT | | results section. | + +--------+ + + + | CAPILLARY BLOOD | Routin | 11/07/2015 | Cellulitis of left | Results for this | | GLUCOSE (NO CHG), | e | 5:31 PM | lower extremity | procedure are in the | | POC | | PDT | | results section. | + +--------+ + + + | CAPILLARY BLOOD | Routin | 11/07/2015 | Cellulitis of left | Results for this | | GLUCOSE (NO CHG), | e | 3:50 PM | lower extremity | procedure are in the | | POC | | PDT | | results section. | + +--------+ + + + | TRANSTHORACIC | Routin | 11/07/2015 | | Results for this | | ECHOCARDIOGRAM, | e | 1:28 PM | | procedure are in the | | ADULT | | PDT | | results section. | + +--------+ + + + | CAPILLARY BLOOD | Routin | 11/07/2015 | Cellulitis of left | Results for this | | GLUCOSE (NO CHG), | e | 12:26 PM | lower extremity | procedure are in the | | POC | | PDT | | results section. | + +--------+ + + + | BASIC METABOLIC SET | Urgent | 11/07/2015 | | Results for this | | (NA, K, CL, TCO2, | | 11:49 AM | | procedure are in the | | BUN, CR, GLU, CA) | | PDT | | results section. | + +--------+ + + + | INR | Urgent | 11/07/2015 | | Results for this | | | | 10:36 AM | | procedure are in the | | | | PDT | | results section. | + +--------+ + + + | HEPARIN, EITHER | Urgent | 11/07/2015 | | Results for this | | STANDARD / LMW, | | 10:36 AM | | procedure are in the | | BLOOD | | PDT | | results section. | + +--------+ + + + | VASC LAB PORTABLE | Routin | 11/07/2015 | | Results for this | | VENOUS DUPLEX LOWER | e | 10:05 AM | | procedure are in the | | EXTREMITY RIGHT | | PDT | | results section. | + +--------+ + + + | CAPILLARY BLOOD | Routin | 11/07/2015 | Cellulitis of left | Results for this | | GLUCOSE (NO CHG), | e | 8:35 AM | lower extremity | procedure are in the | | POC | | PDT | | results section. | + +--------+ + + + | UA, DIPSTICK ONLY | Urgent | 11/07/2015 | | Results for this | | | | 8:21 AM | | procedure are in the | | | | PDT | | results section. | + +--------+ + + + | URINE, MICROSCOPIC | Urgent | 11/07/2015 | | Results for this | | EXAM | | 8:21 AM | | procedure are in the | | | | PDT | | results section. | + +--------+ + + + | URINE SCREEN FOR | Urgent | 11/07/2015 | | Results for this | | CULTURE | | 8:21 AM | | procedure are in the | | | | PDT | | results section. | + +--------+ + + + | CULTURE, URINE [facility] | Routin | 11/07/2015 | | Results for this | | | e | 8:21 AM | | procedure are in the | | | | PDT | | results section. | + +--------+ + + + | CAPILLARY BLOOD | Routin | 11/07/2015 | Cellulitis of left | Results for this | | GLUCOSE (NO CHG), | e | 6:29 AM | lower extremity | procedure are in the | | POC | | PDT | | results section. | + +--------+ + + + | CBC (HEMOGRAM) ONLY | Urgent | 11/07/2015 | | Results for this | | | | 4:56 AM | | procedure are in the | | | | PDT | | results section. | + +--------+ + + + | CBC ONLY | Urgent | 11/07/2015 | | Results for this | | | | 4:56 AM | | procedure are in the | | | | PDT | | results section. | + +--------+ + + + | TSH W/REFLEX TO FREE | Urgent | 11/07/2015 | | Results for this | | T4(IF ABNORMAL) | | 3:17 AM | | procedure are in the | | | | PDT | | results section. | + +--------+ + + + | BASIC METABOLIC SET | Urgent | 11/07/2015 | | Results for this | | (NA, K, CL, TCO2, | | 3:17 AM | | procedure are in the | | BUN, CR, GLU, CA) | | PDT | | results section. | + +--------+ + + + | MAGNESIUM, PLASMA | Urgent | 11/07/2015 | | Results for this | | | | 3:17 AM | | procedure are in the | | | | PDT | | results section. | + +--------+ + + + | US DOPPLER LOWER | Routin | 11/07/2015 | | Results for this | | EXTREMITY LT | e | 12:22 AM | | procedure are in the | | | | PDT | | results section. | + +--------+ + + + | X-RAY CHEST 2 VIEW | Urgent | 11/06/2015 | | Results for this | | | | 2:22 PM | | procedure are in the | | | | PDT | | results section. | + +--------+ + + + | TROPONIN, POC | Urgent | 11/06/2015 | | Results for this | | | | 2:09 PM | | procedure are in the | | | | PDT | | results section. | + +--------+ + + + | BG-LAC,POC ISTAT | Urgent | 11/06/2015 | | Results for this | | | | 2:06 PM | | procedure are in the | | | | PDT | | results section. | + +--------+ + + + | RAINBOW HOLD TUBE - | Urgent | 11/06/2015 | | | | BLUE TOP | | 1:38 PM | | | | | | PDT | | | + +--------+ + + + | 12 LEAD ECG | Routin | 11/06/2015 | | Results for this | | | e | 1:37 PM | | procedure are in the | | | | PDT | | results section. | + +--------+ + + + | CBC AND AUTO DIFF | Urgent | 11/06/2015 | | Results for this | | | | 1:31 PM | | procedure are in the | | | | PDT | | results section. | + +--------+ + + + | CBC, WITH | Urgent | 11/06/2015 | | Results for this | | DIFFERENTIAL | | 1:31 PM | | procedure are in the | | | | PDT | | results section. | + +--------+ + + + | COMPLETE METABOLIC | Urgent | 11/06/2015 | | Results for this | | SET | | 1:31 PM | | procedure are in the | | (NA,K,CL,CO2,BUN,CRE | | PDT | | results section. | | AT,GLUC,CA,AST,ALT,B | | | | | | MARGIE TOTAL,ALK | | | | | | PHOS,ALB,PROT TOTAL) | | | | | + +--------+ + + + | MAGNESIUM, PLASMA | Urgent | 11/06/2015 | | Results for this | | | | 1:31 PM | | procedure are in the | | | | PDT | | results section. | + +--------+ + + + | NT-PRO BNP | Urgent | 11/06/2015 | | Results for this | | | | 1:31 PM | | procedure are in the | | | | PDT | | results section. | + +--------+ + + + | ED INFORMATION | Routin | 11/06/2015 | | Results for this | | EXCHANGE | e | 1:26 PM | | procedure are in the | | | | PDT | | results section. | + +--------+ + + + | ORDERS OTHER | | 11/06/2015 | | Results for this | | | | 12:00 AM | | procedure are in the | | | | PDT | | results section. | + +--------+ + + + documented in this encounter Results CAPILLARY BLOOD GLUCOSE (NO CHG), POC (11/21/2015 9:22 AM PDT) + +---------+ + + + | Component | Value | Ref Range | Performed | Pathologist | | | | | At | Signature | + +---------+ + + + | BLOOD | 179 (H) | 60 - 99 mg/dL | [...] | [facility] | [address] | [place], [place] | | | [facility] | [address] | [address] | | | TESTS | | | | + + + + + INR (11/21/2015 6:27 AM PDT) + + + + + + | Component | Value | Ref Range | Performed | Pathologist | | | | | At | Signature | + + + + + + | INR | 2.85 (H) | 0.90 - 1.20 INR | [facility] [...] Therapeutic ranges for full anticoagulation: INR for | [facility] | | Venous Thromboembolism (2.0 - 3.0) INR INR for | LABORATORY | | most patients with mech. valves (2.5 - 3.5) INR | LYDIA RANGEL | + + + + + + + + | Performing | Address | City/State/Zipcode | Phone Number | | Organization | | | | + + + + + | [facility] | [address] | [place] [address] | | | SERVICES, LYDIA | [address] | | | + + + + + MAGNESIUM, PLASMA (11/21/2015 6:27 AM PDT) + +---------+ + + + | Component | Value | Ref Range | Performed | Pathologist | | | | | At | Signature | + +---------+ + + + | MAGNESIUM,P | 2.7 (H) | 1.8 - 2.5 mg/dL | [facility] | | | LASMA | | | LABORATORY | | | [...] + | [facility] | [address] | [place] [address] | | | SERVICES, CORE | [address] | | | + + + + + BASIC METABOLIC SET (NA, K, CL, TCO2, BUN, CR, GLU, CA) (11/21/2015 6:27 AM PDT) + +---------+ + + + | Component | Value | Ref Range | Performed | Pathologist | | | | | At | Signature | + +---------+ + + + | GLUCOSE, | 170 (H) | 60 - 99 mg/dL | [facility] | | | PLASMA | | | LABORATORY | | | (LAB) | | | SERVICES, | | | | | | CORE | | + +---------+ + + + | BUN, PLASMA | 53 (H) | 6 - 20 mg/dL | [facility] | | | (LAB) | | | LABORATORY | | | | | | SERVICES, | | | | | | CORE | | + +---------+ + + + | CREATININE | 1.02 | 0.60 - 1.10 | [facility] | | | PLASMA | | mg/dL | LABORATORY | | | (LAB) | | | SERVICES, | | | | | | CORE | | + +---------+ + + + | EGFR | >60 | >60 mL/min | [facility] | | | - | | | LABORATORY | | | [place] | | | SERVICES, | | | | | | CORE | | + +---------+ + + + | EGFR NON | >60 | >60 mL/min | [facility] | | | -[facility] | | | LABORATORY | | | [facility] | | | SERVICES, | | | | | | CORE | | + +---------+ + + + | SODIUM, | 137 | 136 - 145 | [facility] | | | PLASMA | | mmol/L | LABORATORY | | | (LAB) | | | SERVICES, | | | | | | CORE | | + +---------+ + + + | POTASSIUM, | 3.0 (L) | 3.4 - 5.0 | [facility] | | | PLASMA | | mmol/L | LABORATORY | | | (LAB) | | | SERVICES, | | | | | | CORE | | + +---------+ + + + | CHLORIDE, | 96 (L) | 97 - 108 mmol/L | [facility] | | | PLASMA | | | LABORATORY | | | (LAB) | | | SERVICES, | | | | | | CORE | | + +---------+ + + + | TOTAL CO2, | 31 | 21 - 32 mmol/L | [facility] | | | PLASMA | | | LABORATORY | | | (LAB) | | | SERVICES, | | | | | | CORE | | + +---------+ + + + | CALCIUM, | 10.2 | 8.6 - 10.2 | [facility] | | | PLASMA | | mg/dL | LABORATORY | | | (LAB) | | | SERVICES, | | | | | | CORE | | + +---------+ + + + | ANION GAP | 10 | mmol/L | [facility] | | | [...] the MDRD equation recommended by the | [facility] | | National Kidney Disease Education Program. [...] | + + + + + | [facility] | [address] | [place] [address] | | | CLAIRE, LYDIA | [address] | | | + + + + + CAPILLARY BLOOD GLUCOSE (NO CHG), POC (11/20/2015 9:52 PM PDT) + +---------+ + + + | Component | Value | Ref Range | Performed | Pathologist | | | | | At | Signature | + +---------+ + + + | BLOOD | 188 (H) | 60 - 99 mg/dL | [...] | [facility] | [address] | [place], [place] | | | [facility] | [facility] | [address] | | | TESTS | | | | + + + + + CAPILLARY BLOOD GLUCOSE (NO CHG), POC (11/20/2015 6:42 PM PDT) + +---------+ + + + | Component | Value | Ref Range | Performed | Pathologist | | | | | At | Signature | + +---------+ + + + | BLOOD | 130 (H) | 60 - 99 mg/dL | [...] + | [facility] | [address] | [place], [place] | | | [facility] | [address] | [address] | | | TESTS | | | | + + + + + CAPILLARY BLOOD GLUCOSE (NO CHG), POC (11/20/2015 1:18 PM PDT) + +---------+ + + + | Component | Value | Ref Range | Performed | Pathologist | | | | | At | Signature | + +---------+ + + + | BLOOD | 146 (H) | 60 - 99 mg/dL | [...] | [facility] | [address] | [place], [place] | | | [facility] | [facility] | [address] | | | TESTS | | | | + + + + + CAPILLARY BLOOD GLUCOSE (NO CHG), POC (11/20/2015 12:51 PM PDT) + +---------+ + + + | Component | Value | Ref Range | Performed | Pathologist | | | | | At | Signature | + +---------+ + + + | BLOOD | 153 (H) | 60 - 99 mg/dL | [...] | [facility] | [address] | [place], [place] | | | [facility] | [facility] | [address] | | | TESTS | | | | + + + + + CAPILLARY BLOOD GLUCOSE (NO CHG), POC (11/20/2015 9:27 AM PDT) + +---------+ + + + | Component | Value | Ref Range | Performed | Pathologist | | | | | At | Signature | + +---------+ + + + | BLOOD | 174 (H) | 60 - 99 mg/dL | [...] + | [facility] | [address] | [place], [place] | | | [facility] | [address] | [address] | | | TESTS | | | | + + + + + INR (11/20/2015 6:00 AM PDT) + + + + + + | Component | Value | Ref Range | Performed | Pathologist | | | | | At | Signature | + + + + + + | INR | 2.70 (H) | 0.90 - 1.20 INR | [facility] [...] Therapeutic ranges for full anticoagulation: INR for | [facility] | | Venous Thromboembolism (2.0 - 3.0) INR INR for | LABORATORY | | most patients with mech. valves (2.5 - 3.5) INR | LYDIA RANGEL | + + + + + + + + | Performing | Address | City/State/Zipcode | Phone Number | | Organization | | | | + + + + + | [facility] | [address] [facility] [facility] | [place] [address] | | | SERVICES, LYDIA | [address] | | | + + + + + FERRITIN (11/20/2015 6:00 AM PDT) + + + + + + | Component | Value | Ref Range | Performed | Pathologist | | | | | At | Signature | + + + + + + | FERRITIN | 507 (H)Comment: Male | 50 - 200 ng/mL | [facility] | | | | and Female >18 years: | | LABORATORY | [...] | + + + + + | [facility] | [address] | [place] [address] | | | SERVICES, CORE | [address] | | | + + + + + MAGNESIUM, PLASMA (11/20/2015 6:00 AM PDT) + +-------+ + + + | Component | Value | Ref Range | Performed | Pathologist | | | | | At | Signature | + +-------+ + + + | MAGNESIUM,P | 2.5 | 1.8 - 2.5 mg/dL | [facility] | | | LASMA | | | LABORATORY | | | [...] | + + + + + | [facility] | [address] | [place] [address] | | | SERVICES, CORE | [address] | | | + + + + + BASIC METABOLIC SET (NA, K, CL, TCO2, BUN, CR, GLU, CA) (11/20/2015 6:00 AM PDT) + +---------+ + + + | Component | Value | Ref Range | Performed | Pathologist | | | | | At | Signature | + +---------+ + + + | GLUCOSE, | 162 (H) | 60 - 99 mg/dL | [facility] | | | PLASMA | | | LABORATORY | | | (LAB) | | | SERVICES, | | | | | | CORE | | + +---------+ + + + | BUN, PLASMA | 46 (H) | 6 - 20 mg/dL | [facility] | | | (LAB) | | | LABORATORY | | | | | | SERVICES, | | | | | | CORE | | + +---------+ + + + | CREATININE | 0.95 | 0.60 - 1.10 | [facility] | | | PLASMA | | mg/dL | LABORATORY | | | (LAB) | | | SERVICES, | | | | | | CORE | | + +---------+ + + + | EGFR | >60 | >60 mL/min | [facility] | | | - | | | LABORATORY | | | [facility] | | | SERVICES, | | | | | | CORE | | + +---------+ + + + | EGFR NON | >60 | >60 mL/min | [facility] | | | -[facility] | | | LABORATORY | | | [facility] | | | SERVICES, | | | | | | CORE | | + +---------+ + + + | SODIUM, | 139 | 136 - 145 | [facility] | | | PLASMA | | mmol/L | LABORATORY | | | (LAB) | | | SERVICES, | | | | | | CORE | | + +---------+ + + + | POTASSIUM, | 2.7 (L) | 3.4 - 5.0 | [facility] | | | PLASMA | | mmol/L | LABORATORY | | | (LAB) | | | SERVICES, | | | | | | CORE | | + +---------+ + + + | CHLORIDE, | 99 | 97 - 108 mmol/L | [facility] [...] +---------+ + + + | CALCIUM, | 9.6 | 8.6 - 10.2 | [facility] | [...] | + + + + + | [facility] | [address] | [place] [address] | | | SERVICES, CORE | [address] | | | + + + + + CAPILLARY BLOOD GLUCOSE (NO CHG), POC (11/19/2015 10:48 PM PDT) + +---------+ + + + | Component | Value | Ref Range | Performed | Pathologist | | | | | At | Signature | + +---------+ + + + | BLOOD | 153 (H) | 60 - 99 mg/dL | [...] | [facility] | [address] | [place], [place] | | | [facility] | [address] | [address] | | | TESTS | | | | + + + + + CAPILLARY BLOOD GLUCOSE (NO CHG), POC (11/19/2015 5:47 PM PDT) + +---------+ + + + | Component | Value | Ref Range | Performed | Pathologist | | | | | At | Signature | + +---------+ + + + | BLOOD | 153 (H) | 60 - 99 mg/dL | [...] + | [facility] | [address] | [place], [place] | | | [facility] | [address] | [address] | | | TESTS | | | | + + + + + INR (11/19/2015 2:20 PM PDT) + + + + + + | Component | Value | Ref Range | Performed | Pathologist | | | | | At | Signature | + + + + + + | INR | 2.59 (H) | 0.90 - 1.20 INR | [facility] [...] Therapeutic ranges for full anticoagulation: INR for | [facility] | | Venous Thromboembolism (2.0 - 3.0) INR INR for | LABORATORY | | most patients with mech. valves (2.5 - 3.5) INR | SERVICES, CORE | + + + + + + + + | Performing | Address | City/State/Zipcode | Phone Number | | Organization | | | | + + + + + | [facility] | [address] | [place] [address] | | | SERVICES, CORE | [address] | | | + + + + + MAGNESIUM, PLASMA (11/19/2015 2:20 PM PDT) + +-------+ + + + | Component | Value | Ref Range | Performed | Pathologist | | | | | At | Signature | + +-------+ + + + | MAGNESIUM,P | 2.2 | 1.8 - 2.5 mg/dL | [facility] | | | LASMA | | | LABORATORY | | | [...] | + + + + + | [facility] | [address] | [place] [address] | | | SERVICES, CORE | [address] | | | + + + + + BASIC METABOLIC SET (NA, K, CL, TCO2, BUN, CR, GLU, CA) (11/19/2015 2:20 PM PDT) + +---------+ + + + | Component | Value | Ref Range | Performed | Pathologist | | | | | At | Signature | + +---------+ + + + | GLUCOSE, | 214 (H) | 60 - 99 mg/dL | [facility] | | | PLASMA | | | LABORATORY | | | (LAB) | | | SERVICES, | | | | | | CORE | | + +---------+ + + + | BUN, PLASMA | 42 (H) | 6 - 20 mg/dL | [facility] | | | (LAB) | | | LABORATORY | | | | | | SERVICES, | | | | | | CORE | | + +---------+ + + + | CREATININE | 1.03 | 0.60 - 1.10 | [facility] | | | PLASMA | | mg/dL | LABORATORY | | | (LAB) | | | SERVICES, | | | | | | CORE | | + +---------+ + + + | EGFR | >60 | >60 mL/min | [facility] | | | - | | | LABORATORY | | | [facility] | | | SERVICES, | | | | | | CORE | | + +---------+ + + + | EGFR NON | 60 (L) | >60 mL/min | [facility] | | | -[facility] | | | LABORATORY | | | [facility] | | | SERVICES, | | | | | | CORE | | + +---------+ + + + | SODIUM, | 136 | 136 - 145 | [facility] | | | PLASMA | | mmol/L | LABORATORY | | | (LAB) | | | SERVICES, | | | | | | CORE | | + +---------+ + + + | POTASSIUM, | 2.7 (L) | 3.4 - 5.0 | [facility] | | | PLASMA | | mmol/L | LABORATORY | | | (LAB) | | | SERVICES, | | | | | | CORE | | + +---------+ + + + | CHLORIDE, | 98 | 97 - 108 mmol/L | [facility] [...] | + + + + + | [facility] | [address] | [place] [address] | | | SERVICES, CORE | [address] | | | + + + + + CAPILLARY BLOOD GLUCOSE (NO CHG), POC (11/19/2015 12:58 PM PDT) + +---------+ + + + | Component | Value | Ref Range | Performed | Pathologist | | | | | At | Signature | + +---------+ + + + | BLOOD | 161 (H) | 60 - 99 mg/dL | [facility] - | | | GLUCOSE, | [...] + | [facility] | [address] | [place], [place] | | | [facility] | [address] | [address] | | | TESTS | | | | + + + + + CAPILLARY BLOOD GLUCOSE (NO CHG), POC (11/19/2015 9:41 AM PDT) + +---------+ + + + | Component | Value | Ref Range | Performed | Pathologist | | | | | At | Signature | + +---------+ + + + | BLOOD | 153 (H) | 60 - 99 mg/dL | [...] | [facility] | [address] | [place], [place] | | | [facility] | [address] | [address] | | | TESTS | | | | + + + + + CAPILLARY BLOOD GLUCOSE (NO CHG), POC (11/18/2015 10:08 PM PDT) + +---------+ + + + | Component | Value | Ref Range | Performed | Pathologist | | | | | At | Signature | + +---------+ + + + | BLOOD | 157 (H) | 60 - 99 mg/dL | [...] | [facility] | [address] | [place], [place] | | | [facility] | [address] | [address] | | | TESTS | | | | + + + + + CAPILLARY BLOOD GLUCOSE (NO CHG), POC (11/18/2015 6:09 PM PDT) + +---------+ + + + | Component | Value | Ref Range | Performed | Pathologist | | | | | At | Signature | + +---------+ + + + | BLOOD | 158 (H) | 60 - 99 mg/dL | [...] + | [facility] | [address] | [place], [place] | | | [facility] | [address] | [address] | | | TESTS | | | | + + + + + POTASSIUM, PLASMA (11/18/2015 2:25 PM PDT) + +---------+ + + + | Component | Value | Ref Range | Performed | Pathologist | | | | | At | Signature | + +---------+ + + + | POTASSIUM, | 3.0 [...] | + + + + + | [facility] | [address] | [place] [address] | | | SERVICES, CORE | [address] | | | + + + + + MAGNESIUM, PLASMA (11/18/2015 2:25 PM PDT) + +-------+ + + + | Component | Value | Ref Range | Performed | Pathologist | | | | | At | Signature | + +-------+ + + + | MAGNESIUM,P | 2.2 | 1.8 - 2.5 mg/dL | [facility] | | | [facility] | | | LABORATORY | | | [...] | + + + + + | [facility] | [address] | [place] [address] | | | SERVICES, CORE | [address] | | | + + + + + CAPILLARY BLOOD GLUCOSE (NO CHG), POC (11/18/2015 12:44 PM PDT) + +---------+ + + + | Component | Value | Ref Range | Performed | Pathologist | | | | | At | Signature | + +---------+ + + + | BLOOD | 155 (H) | 60 - 99 mg/dL | [...] + + + + + | [facility] | [address] | [place], [place] | | | [facility] | [address] | [address] | | | TESTS | | | | + + + + + CAPILLARY BLOOD GLUCOSE (NO CHG), POC (11/18/2015 8:56 AM PDT) + +---------+ + + + | Component | Value | Ref Range | Performed | Pathologist | | | | | At | Signature | + +---------+ + + + | BLOOD | 177 (H) | 60 - 99 mg/dL | [...] + + + + + | [facility] | [address] | [place], [place] | | | [facility] | [facility] | [address] | | | TESTS | | | | + + + + + HEPARIN, EITHER STANDARD / LMW, BLOOD (11/18/2015 6:25 AM PDT) + +-------+ + + + | Component | Value | Ref Range | Performed | Pathologist | | | | | At | Signature | + +-------+ + + + | HEPARIN, | 0.52 | U/mL | [facility] | | | STD [facility] | | | LABORATORY | | | | | | SERVICES, | | | | | | CORE | | + +-------+ + + + + + | Specimen | + + | Blood - Blood | | (substance) | + + + + + | Narrative | Performed At | + + + | Venous Disease Heparin Protocol Heparin level 6 hrs after every | [facility] | | heparin rate change; If heparin level within target range for 2 | LABORATORY | | consecutive results, recheck every AM Heparin, Either STD/LMW - | SERVICES, CORE | | Therapeutic Ranges: Heparin, Unfractionated: 0.35 - 0.70 U/mL | | | Enoxaparin, LMWH: 0.70 - 1.20 U/mL Dalteparin, LMWH: | | | 0.70 - 1.20 U/mL Tinzaparin, LMWH: Therapeutic | | | range not established. | | | Preliminary studies suggest range | | | similar to dalteparin. Clinical | | | correlation required. Heparin levels may be unreliable for: | | | Total bilirubin >28.8 mg/dL | | | Triglycerides >690 mg/dL | | | or Moderate to Gross Hemolysis | | + + + + + + + + | Performing | Address | City/State/Zipcode | Phone Number | | Organization | | | | + + + + + | [facility] | [address] | [place] [address] | | | SERVICES, CORE | [address] | | | + + + + + INR (11/18/2015 6:25 AM PDT) + + + + + + | Component | Value | Ref Range | Performed | Pathologist | | | | | At | Signature | + + + + + + | INR | 2.64 (H) | 0.90 - 1.20 INR | [facility] [...] Therapeutic ranges for full anticoagulation: INR for | [facility] | | Venous Thromboembolism (2.0 - 3.0) INR INR for | LABORATORY | | most patients with mech. valves (2.5 - 3.5) INR | SERVICES, CORE | + + + + + + + + | Performing | Address | City/State/Zipcode | Phone Number | | Organization | | | | + + + + + | [facility] | [address] | [place] [address] | | | SERVICES, LYD[place] | [address] | | | + + + + + MAGNESIUM, PLASMA (11/18/2015 6:25 AM PDT) + +-------+ + + + | Component | Value | Ref Range | Performed | Pathologist | | | | | At | Signature | + +-------+ + + + | MAGNESIUM,P | 2.1 | 1.8 - 2.5 mg/dL | [facility] | | | LASMA | | | LABORATORY | | | | | | CLAIRE, | | | | | | CORE | | + +-------+ + + + + + | Specimen | + + | Blood - Blood | | (substance) | + + + + + + + | Performing | Address | City/State/Zipcode | Phone Number | | Organization | | | | + + + + + | [facility] | [address] | [place] [address] | | | SERVICES, CORE | [address] | | | + + + + + BASIC METABOLIC SET (NA, K, CL, TCO2, BUN, CR, GLU, CA) (11/18/2015 6:25 AM PDT) + +---------+ + + + | Component | Value | Ref Range | Performed | Pathologist | | | | | At | Signature | + +---------+ + + + | GLUCOSE, | 148 (H) | 60 - 99 mg/dL | [facility] | | | PLASMA | | | LABORATORY | | | (LAB) | | | SERVICES, | | | | | | CORE | | + +---------+ + + + | BUN, PLASMA | 31 (H) | 6 - 20 mg/dL | [facility] | | | (LAB) | | | LABORATORY | | | | | | SERVICES, | | | | | | CORE | | + +---------+ + + + | CREATININE | 0.86 | 0.60 - 1.10 | [facility] | | | PLASMA | | mg/dL | LABORATORY | | | (LAB) | | | SERVICES, | | | | | | CORE | | + +---------+ + + + | EGFR | >60 | >60 mL/min | [facility] | | | - | | | LABORATORY | | | [place] | | | SERVICES, | | | [...] +---------+ + + + | POTASSIUM, | 3.6 | 3.4 - 5.0 | [facility] | [...] + + + | TOTAL CO2, | 23 | 21 - 32 mmol/L | [facility] [...] + + + | ANION GAP | 9 | mmol/L | [facility] | | | [...] | + + + + + | [facility] | [address] | [place] [address] | | | SERVICES, CORE | [address] | | | + + + + + CAPILLARY BLOOD GLUCOSE (NO CHG), POC (11/17/2015 10:15 PM PDT) + +---------+ + + + | Component | Value | Ref Range | Performed | Pathologist | | | | | At | Signature | + +---------+ + + + | BLOOD | 163 (H) | 60 - 99 mg/dL | [facility] - | | | GLUCOSE, | | [...] + | [facility] | [address] | [place], [place] | | | [facility] | [facility] | [address] | | | TESTS | | | | + + + + + CAPILLARY BLOOD GLUCOSE (NO CHG), POC (11/17/2015 6:10 PM PDT) + +---------+ + + + | Component | Value | Ref Range | Performed | Pathologist | | | | | At | Signature | + +---------+ + + + | BLOOD | 170 (H) | 60 - 99 [...] + | [facility] | [address] | [place], [place] | | | [facility] | [facility] | [address] | | | TESTS | | | | + + + + + CAPILLARY BLOOD GLUCOSE (NO CHG), POC (11/17/2015 2:34 PM PDT) + +---------+ + + + | Component | Value | Ref Range | Performed | Pathologist | | | | | At | Signature | + +---------+ + + + | BLOOD | 126 (H) | 60 - 99 mg/dL | [facility] - | | | GLUCOSE, | [...] | [facility] | [address] | [place], [place] | | | [facility] | [address] | [address] | | | TESTS | | | | + + + + + CAPILLARY BLOOD GLUCOSE (NO CHG), POC (11/17/2015 10:08 AM PDT) + +---------+ + + + | Component | Value | Ref Range | Performed | Pathologist | | | | | At | Signature | + +---------+ + + + | BLOOD | 175 (H) | 60 - 99 mg/dL | [...] + | [facility] | [address] | [place], [place] | | | [facility] | [facility] | [address] | | | TESTS | | | | + + + + + INR (11/17/2015 5:39 AM PDT) + + + + + + | Component | Value | Ref Range | Performed | Pathologist | | | | | At | Signature | + + + + + + | INR | 2.07 (H) | 0.90 - 1.20 INR | [facility] [...] Performed At | + + + | Venous Disease Heparin Protocol Heparin level 6 hrs after every | [facility] | | heparin rate change; If heparin level within target range for 2 | LABORATORY | | consecutive results, recheck every AM INR Therapeutic ranges for | SERVICES, CORE | | full anticoagulation: INR for Venous Thromboembolism | | | (2.0 - 3.0) INR INR for most patients with mech. valves (2.5 | | | - 3.5) INR | | + + + + + + + + | Performing | Address | City/State/Zipcode | Phone Number | | Organization | | | | + + + + + | [facility] | [address] | [place] [address] | | | L[facility]DIA RANGEL | [address] | | | + + + + + HEPARIN, EITHER STANDARD / LMW, BLOOD (11/17/2015 5:39 AM PDT) + +-------+ + + + | Component | Value | Ref Range | Performed | Pathologist | | | | | At | Signature | + +-------+ + + + | HEPARIN, | 0.53 | U/mL | [facility] | | | STD LMW | | | LABORATORY | | | | | | SERVICES, | | | | | | CORE | | + +-------+ + + + + + | Specimen | + + | Blood - Blood | | (substance) | + + + + + | Narrative | Performed At | + + + | Venous Disease Heparin Protocol Heparin level 6 hrs after every | [facility] | | heparin rate change; If heparin level within target range for 2 | LABORATORY | | consecutive results, recheck every AM Heparin, Either STD/LMW - | SERVICES, CORE | | Therapeutic Ranges: Heparin, Unfractionated: 0.35 - 0.70 U/mL | | | Enoxaparin, LMWH: 0.70 - 1.20 U/mL Dalteparin, LMWH: | | | 0.70 - 1.20 U/mL Tinzaparin, LMWH: Therapeutic | | | range not established. | | | Preliminary studies suggest range | | | similar to dalteparin. Clinical | | | correlation required. Heparin levels may be unreliable for: | | | Total bilirubin >28.8 mg/dL | | | Triglycerides >690 mg/dL | | | or Moderate to Gross Hemolysis | | + + + + + + + + | Performing | Address | City/State/Zipcode | Phone Number | | Organization | | | | + + + + + | [facility] | [address] | [place] [address] | | | SERVICES, CORE | [address] | | | + + + + + MAGNESIUM, PLASMA (11/17/2015 5:39 AM PDT) + +-------+ + + + | Component | Value | Ref Range | Performed | Pathologist | | | | | At | Signature | + +-------+ + + + | MAGNESIUM,P | 2.3 | 1.8 - 2.5 mg/dL | [facility] | | | LASMA | | | LABORATORY | | | | | | CLAIRE, | | | | | | CORE | | + +-------+ + + + + + | Specimen | + + | Blood - Blood | | (substance) | + + + + + + + | Performing | Address | City/State/Zipcode | Phone Number | | Organization | | | | + + + + + | [facility] | [address] | [place] [address] | | | SERVICES, CORE | [address] | | | + + + + + BASIC METABOLIC SET (NA, K, CL, TCO2, BUN, CR, GLU, CA) (11/17/2015 5:39 AM PDT) + +---------+ + + + | Component | Value | Ref Range | Performed | Pathologist | | | | | At | Signature | + +---------+ + + + | GLUCOSE, | 136 (H) | 60 - 99 mg/dL | [facility] | | | PLASMA | | | LABORATORY | | | (LAB) | | | SERVICES, | | | | | | CORE | | + +---------+ + + + | BUN, PLASMA | 28 (H) | 6 - 20 mg/dL | [facility] | | | (LAB) | | | LABORATORY | | | | | | SERVICES, | | | | | | CORE | | + +---------+ + + + | CREATININE | 0.86 | 0.60 - 1.10 | [facility] | | | PLASMA | | mg/dL | LABORATORY | | | (LAB) | | | SERVICES, | | | | | | CORE | | + +---------+ + + + | EGFR | >60 | >60 mL/min | [facility] | | | - | | | LABORATORY | | | [place] | | | SERVICES, | | | | | | CORE | | + +---------+ + + + | EGFR NON | >60 | >60 mL/min | [facility] | | | -RAJNI | | | LABORATORY | | | [facility]ICAN | | | SERVICES, | | | | | | CORE | | + +---------+ + + + | SODIUM, | 137 | 136 - 145 | [facility] | | | PLASMA | | mmol/L | LABORATORY | | | (LAB) | | | SERVICES, | | | | | | CORE | | + +---------+ + + + | POTASSIUM, | 3.6 | 3.4 - 5.0 | [facility] | | | PLASMA | | mmol/L | LABORATORY | | | (LAB) | | | SERVICES, | | | | | | CORE | | + +---------+ + + + | CHLORIDE, | 108 [...] + + + | ANION GAP | 7 | mmol/L | [facility] | | | [...] the MDRD equation recommended by the | [facility] | | National Kidney Disease Education Program. [...] + | [facility] | [address] | [place] [address] | | | SERVICES, CORE | [address] | | | + + + + + MADAY CEDILLO (11/16/2015 10:31 PM PDT) + + + + + [...] + + + + | PH(UR) | 5.0 | 5.0 - 8.0 | [facility] | [...] + + + + | SPECIFIC | 1.015 | 1.005 - 1.030 | [facility] | | | GRAVITY | | | LABORATORY | | | | | | SERVICES, | | | | | | CORE | | + + + + + + + + | Specimen | + + | Urine - Urine | | (substance) | + + + + + + + | Performing | Address | City/State/Zipcode | Phone Number | | Organization | | | | + + + + + | [facility] | [address] | [place] [address] | | | SERVICES, CORE | [address] | | | + + + + + URINE, MICROSCOPIC EXAM (11/16/2015 10:31 PM PDT) + +---------+ + + + | Component | Value | Ref Range | Performed | Pathologist | | | | | At | Signature | + +---------+ + + + | RED CELLS | 2 | 0 - 3 /hpf | [facility] | | | | | | LABORATORY | | | | | | SERVICES, | | | | | | CORE | | + +---------+ + + + | WHITE CELLS | 2 | 0 - 5 /hpf | [facility] | | | | | | LABORATORY | | | | | | SERVICES, | | | | | | CORE | | + +---------+ + + + | WBC CLUMPS | Present | | [facility] | | | | | | LABORATORY | | | | | | SERVICES, | | | | | | CORE | | + +---------+ + + + | BACTERIA | None | None /hpf | [facility] | | | | | | LABORATORY | | | | | | SERVICES, | | | | | | CORE | | + +---------+ + + + | YEAST (LAB) | None | None /hpf | [facility] | | | | | | LABORATORY | | | | | | SERVICES, | | | | | | CORE | | + +---------+ + + + | SQUAMOUS | Few (A) | None /hpf | [facility] | | | EPITHELIAL | | | LABORATORY | | | | | | SERVICES, | | | | | | CORE | | + +---------+ + + + | MUCOUS | None | None /hpf | [facility] | | | | | | LABORATORY | | | | | | SERVICES, | | | | | | CORE | | + +---------+ + + + | TRICHOMONAS | None | None /hpf | [facility] | | | | | | LABORATORY | | | | | | SERVICES, | | | | | | CORE | | + +---------+ + + + | NON-SQUAMOU | None | None /hpf | [facility] | | | S EPITH | | | LABORATORY | | | | | | SERVICES, | | | | | | CORE | | + +---------+ + + + | HYALINE | 1 | 0 - 2 /lpf | [facility] | | | CASTS | | | LABORATORY | | | | | | SERVICES, | | | | | | CORE | | + +---------+ + + + | GRANULAR | 0 | 0 - 2 /lpf | [facility] | | | CASTS | | | LABORATORY | | | | | | SERVICES, | | | | | | CORE | | + +---------+ + + + | CELLULAR | 0 | <=0 /lpf | [facility] | | | CASTS | | | LABORATORY | | | | | | SERVICES, | | | | | | CORE | | + +---------+ + + + | TRIPLE P04 | None | None /hpf | [facility] | | | CRYSTALS | | | LABORATORY | | | | | | SERVICES, | | | | | | CORE | | + +---------+ + + + | CALCIUM | None | None /hpf | [facility] | | | OXALATE | | | LABORATORY | | | KATHE | | | SERVICES, | | | | | | CORE | | + +---------+ + + + | URIC ACID | None | None /hpf | [facility] | | | CRYSTALS | | | LABORATORY | | | | | | SERVICES, | | | | | | CORE | | + +---------+ + + + | AMORPHOUS | None | None /hpf | [facility] | | | CRYSTALS | | | LABORATORY | | | | | | SERVICES, | | | | | | CORE | | + +---------+ + + + + + | Specimen | + + | Urine - Urine | | (substance) | + + + + + + + | Performing | Address | City/State/Zipcode | Phone Number | | Organization | | | | + + + + + | [facility] | [address] | [place] [address] | | | SERVICES, CORE | [address] | | | + + + + + CAPILLARY BLOOD GLUCOSE (NO CHG), POC (11/16/2015 10:24 PM PDT) + +---------+ + + + | Component | Value | Ref Range | Performed | Pathologist | | | | | At | Signature | + +---------+ + + + | BLOOD | 166 (H) | 60 - 99 mg/dL | [facility] - | | | GLUCOSE, | | [...] + | [facility] | [address] | [place], [place] | | | [facility] | [facility] | [address] | | | TESTS | | | | + + + + + CAPILLARY BLOOD GLUCOSE (NO CHG), POC (11/16/2015 6:24 PM PDT) + +---------+ + + + | Component | Value | Ref Range | Performed | Pathologist | | | | | At | Signature | + +---------+ + + + | BLOOD | 147 (H) | 60 - 99 mg/dL | [...] | [facility] | [address] | [place], [place] | | | [facility] | [facility] | [address] | | | TESTS | | | | + + + + + CAPILLARY BLOOD GLUCOSE (NO CHG), POC (11/16/2015 1:26 PM PDT) + +---------+ + + + | Component | Value | Ref Range | Performed | Pathologist | | | | | At | Signature | + +---------+ + + + | BLOOD | 126 (H) | 60 - 99 mg/dL | [facility] - | | | GLUCOSE, | [...] | [facility] | [address] | [place], [place] | | | [facility] | [address] | [address] | | | TESTS | | | | + + + + + HEPARIN, EITHER STANDARD / LMW, BLOOD (11/16/2015 11:19 AM PDT) + +-------+ + + + | Component | Value | Ref Range | Performed | Pathologist | | | | | At | Signature | + +-------+ + + + | HEPARIN, | 0.52 | U/mL | [facility] | | | STD LMW | | | LABORATORY | | | | | | SERVICES, | | | | | | CORE | | + +-------+ + + + + + | Specimen | + + | Blood - Blood | | (substance) | + + + + + | Narrative | Performed At | + + + | Venous Disease Heparin Protocol Heparin level 6 hrs after every | [facility] | | heparin rate change; If heparin level within target range for 2 | LABORATORY | | consecutive results, recheck every AM Heparin, Either STD/LMW - | SERVICES, CORE | | Therapeutic Ranges: Heparin, Unfractionated: 0.35 - 0.70 U/mL | | | Enoxaparin, LMWH: 0.70 - 1.20 U/mL Dalteparin, LMWH: | | | 0.70 - 1.20 U/mL Tinzaparin, LMWH: Therapeutic | | | range not established. | | | Preliminary studies suggest range | | | similar to dalteparin. Clinical | | | correlation required. Heparin levels may be unreliable for: | | | Total bilirubin >28.8 mg/dL | | | Triglycerides >690 mg/dL | | | or Moderate to Gross Hemolysis | | + + + + + + + + | Performing | Address | City/State/Zipcode | Phone Number | | Organization | | | | + + + + + | [facility] | [address] | [place] [address] | | | SERVICES, CORE | [address] | | | + + + + + CAPILLARY BLOOD GLUCOSE (NO CHG), POC (11/16/2015 8:36 AM PDT) + +---------+ + + + | Component | Value | Ref Range | Performed | Pathologist | | | | | At | Signature | + +---------+ + + + | BLOOD | 173 (H) | 60 - 99 mg/dL | [...] | [facility] | [address] | [place], [place] | | | [facility] | [address] | [address] | | | TESTS | | | | + + + + + INR (11/16/2015 3:08 AM PDT) + + + + + + | Component | Value | Ref Range | Performed | Pathologist | | | | | At | Signature | + + + + + + | INR | 1.83 (H) | 0.90 - 1.20 INR | [facility] [...] Performed At | + + + | Venous Disease Heparin Protocol Heparin level 6 hrs after every | [facility] | | heparin rate change; If heparin level within target range for 2 | LABORATORY | | consecutive results, recheck every AM INR Therapeutic ranges for | SERVICES, CORE | | full anticoagulation: INR for Venous Thromboembolism | | | (2.0 - 3.0) INR INR for most patients with mech. valves (2.5 | | | - 3.5) INR | | + + + + + + + + | Performing | Address | City/State/Zipcode | Phone Number | | Organization | | | | + + + + + | [facility] | [address] | [place] [address] | | | CLAIRE, LYDIA | [address] | | | + + + + + HEPARIN, EITHER STANDARD / LMW, BLOOD (11/16/2015 3:08 AM PDT) + +-------+ + + + | Component | Value | Ref Range | Performed | Pathologist | | | | | At | Signature | + +-------+ + + + | HEPARIN, | 0.51 | U/mL | [facility] | | | STD LMW | | | LABORATORY | | | | | | CLAIRE, | | | | | | CORE | | + +-------+ + + + + + | Specimen | + + | Blood - Blood | | (substance) | + + + + + | Narrative | Performed At | + + + | Venous Disease Heparin Protocol Heparin level 6 hrs after every | [facility] | | heparin rate change; If heparin level within target range for 2 | LABORATORY | | consecutive results, recheck every AM Heparin, Either STD/LMW - | SERVICES, CORE | | Therapeutic Ranges: Heparin, Unfractionated: 0.35 - 0.70 U/mL | | | Enoxaparin, LMWH: 0.70 - 1.20 U/mL Dalteparin, LMWH: | | | 0.70 - 1.20 U/mL Tinzaparin, LMWH: Therapeutic | | | range not established. | | | Preliminary studies suggest range | | | similar to dalteparin. Clinical | | | correlation required. Heparin levels may be unreliable for: | | | Total bilirubin >28.8 mg/dL | | | Triglycerides >690 mg/dL | | | or Moderate to Gross Hemolysis | | + + + + + + + + | Performing | Address | City/State/Zipcode | Phone Number | | Organization | | | | + + + + + | [facility] | [address] | [place] [address] | | | SERVICES, CORE | [address] | | | + + + + + BASIC METABOLIC SET (NA, K, CL, TCO2, BUN, CR, GLU, CA) (11/16/2015 3:08 AM PDT) + +---------+ + + + | Component | Value | Ref Range | Performed | Pathologist | | | | | At | Signature | + +---------+ + + + | GLUCOSE, | 137 (H) | 60 - 99 mg/dL | [facility] | | | PLASMA | | | LABORATORY | | | (LAB) | | | SERVICES, | | | | | | CORE | | + +---------+ + + + | BUN, PLASMA | 29 (H) | 6 - 20 mg/dL | [facility] | | | (LAB) | | | LABORATORY | | | | | | SERVICES, | | | | | | CORE | | + +---------+ + + + | CREATININE | 0.96 | 0.60 - 1.10 | [facility] | | | PLASMA | | mg/dL | LABORATORY | | | (LAB) | | | SERVICES, | | | | | | CORE | | + +---------+ + + + | EGFR | >60 | >60 mL/min | [facility] | | | - | | | LABORATORY | | | [place] | | | SERVICES, | | | | | | CORE | | + +---------+ + + + | EGFR NON | >60 | >60 mL/min | [facility] | | | -RAJNI | | | LABORATORY | | | RICAN | | | SERVICES, | | | | | | CORE | | + +---------+ + + + | SODIUM, | 137 | 136 - 145 | [facility] | [...] +---------+ + + + | CHLORIDE, | 104 | 97 - 108 mmol/L | [facility] | | | PLASMA | | | LABORATORY | | | (LAB) | | | SERVICES, | | | | | | CORE | | + +---------+ + + + | TOTAL CO2, | 26 | 21 - 32 mmol/L | [facility] | | | PLASMA | | | LABORATORY | | | (LAB) | | | SERVICES, | | | | | | CORE | | + +---------+ + + + | CALCIUM, | 9.3 | 8.6 - 10.2 | [facility] | | | PLASMA | | mg/dL | LABORATORY | | | (LAB) | | | SERVICES, | | | | | | CORE | | + +---------+ + + + | ANION GAP | 7 | mmol/L | [facility] | | | [...] the MDRD equation recommended by the | [facility] | | National Kidney Disease Education Program. Estimated GFR | LABORATORY | | Interpretive Information: <60 mL/min/1.73 sq m | [facility] | | Chronic Kidney Disease <15 mL/min/1.73 [...] | + + + + + | [facility] | [address] | [place] [address] | | | SERVICES, CORE | [address] | | | + + + + + MAGNESIUM, PLASMA (11/16/2015 3:08 AM PDT) + +-------+ + + + | Component | Value | Ref Range | Performed | Pathologist | | | | | At | Signature | + +-------+ + + + | MAGNESIUM,P | 2.3 | 1.8 - 2.5 mg/dL | [facility] | | | [facility] | | | LABORATORY | | | [...] | + + + + + | [facility] | [address] | [place] [address] | | | SERVICES, CORE | [address] | | | + + + + + CAPILLARY BLOOD GLUCOSE (NO CHG), POC (11/15/2015 10:30 PM PDT) + +---------+ + + + | Component | Value | Ref Range | Performed | Pathologist | | | | | At | Signature | + +---------+ + + + | BLOOD | 160 (H) | 60 - 99 mg/dL | [facility] - | | | GLUCOSE, | [...] + + + | [facility] | [address] | [place], [place] | | | [facility] | [address] | [address] | | | TESTS | | | | + + + + + HEPARIN, EITHER STANDARD / LMW, BLOOD (11/15/2015 7:48 PM PDT) + +-------+ + + + | Component | Value | Ref Range | Performed | Pathologist | | | | | At | Signature | + +-------+ + + + | HEPARIN, | 0.42 | U/mL | [facility] | | | STD LMW | | | LABORATORY | | | | | | SERVICES, | | | | | | CORE | | + +-------+ + + + + + | Specimen | + + | Blood - Blood | | (substance) | + + + + + | Narrative | Performed At | + + + | Venous Disease Heparin Protocol Heparin level 6 hrs after every | [facility] | | heparin rate change; If heparin level within target range for 2 | LABORATORY | | consecutive results, recheck every AM Heparin, Either STD/LMW - | SERVICES, CORE | | Therapeutic Ranges: Heparin, Unfractionated: 0.35 - 0.70 U/mL | | | Enoxaparin, LMWH: 0.70 - 1.20 U/mL Dalteparin, LMWH: | | | 0.70 - 1.20 U/mL Tinzaparin, LMWH: Therapeutic | | | range not established. | | | Preliminary studies suggest range | | | similar to dalteparin. Clinical | | | correlation required. Heparin levels may be unreliable for: | | | Total bilirubin >28.8 mg/dL | | | Triglycerides >690 mg/dL | | | or Moderate to Gross Hemolysis | | + + + + + + + + | Performing | Address | City/State/Zipcode | Phone Number | | Organization | | | | + + + + + | [facility] | [address] | [place] [address] | | | LYDIA RANGEL | [address] | | | + + + + + CAPILLARY BLOOD GLUCOSE (NO CHG), POC (11/15/2015 6:08 PM PDT) + +---------+ + + + [...] + | [facility] | [address] | [place], [place] | | | [place] [facility] | [facility] | [address] | | | TESTS | | | | + + + + + HEPARIN, EITHER STANDARD / LMW, BLOOD (11/15/2015 1:55 PM PDT) + +-------+ + + + | Component | Value | Ref Range | Performed | Pathologist | | | | | At | Signature | + +-------+ + + + | HEPARIN, | 0.77 | U/mL | [facility] | | | STD LMW | | | LABORATORY | | | | | | SERVICES, | | | | | | CORE | | + +-------+ + + + + + | Specimen | + + | Blood - Blood | | (substance) | + + + + + | Narrative | Performed At | + + + | Venous Disease Heparin Protocol Heparin level 6 hrs after every | [facility] | | heparin rate change; If heparin level within target range for 2 | LABORATORY | | consecutive results, recheck every AM Heparin, Either STD/LMW - | SERVICES, CORE | | Therapeutic Ranges: Heparin, Unfractionated: 0.35 - 0.70 U/mL | | | Enoxaparin, LMWH: 0.70 - 1.20 U/mL Dalteparin, LMWH: | | | 0.70 - 1.20 U/mL Tinzaparin, LMWH: Therapeutic | | | range not established. | | | Preliminary studies suggest range | | | similar to dalteparin. Clinical | | | correlation required. Heparin levels may be unreliable for: | | | Total bilirubin >28.8 mg/dL | | | Triglycerides >690 mg/dL | | | or Moderate to Gross Hemolysis | | + + + + + + + + | Performing | Address | City/State/Zipcode | Phone Number | | Organization | | | | + + + + + | [facility] | [address] | [place] [address] | | | SERVICES, CORE | [address] | | | + + + + + CAPILLARY BLOOD GLUCOSE (NO CHG), POC (11/15/2015 1:42 PM PDT) + +---------+ + + + | Component | Value | Ref Range | Performed | Pathologist | | | | | At | Signature | + +---------+ + + + | BLOOD | 115 (H) | 60 - 99 mg/dL | [facility] - | | | GLUCOSE, | | [...] + | [facility] | [address] | [place], [place] | | | [facility] | [facility] | [address] | | | TESTS | | | | + + + + + CAPILLARY BLOOD GLUCOSE (NO CHG), POC (11/15/2015 8:40 AM PDT) + +---------+ + + + | Component | Value | Ref Range | Performed | Pathologist | | | | | At | Signature | + +---------+ + + + | BLOOD | 161 (H) | 60 - 99 mg/dL | [...] + | [facility] | [address] | [place], [place] | | | [place] [facility] | [facility] | [address] | | | TESTS | | | | + + + + + CBC (HEMOGRAM) ONLY (11/15/2015 5:49 AM PDT) + + + + + + | Component | Value | Ref Range | Performed | Pathologist | | | | | At | Signature | + + + + + + | WHITE CELL | 10.45 | 4.40 - 11.00 | [facility] | | | COUNT | | K/cu mm | LABORATORY | | | | | | SERVICES, | | | | | | CORE | | + + + + + + | RED CELL | 4.48 | 4.00 - 5.20 | [facility] | [...] + + + + | MCV | 81.0 | 80.0 - 96.0 fL | [facility] [...] + + + | RDW SD | 52.6 (H) | 35.1 - 46.3 fL | [facility] | | | | | | LABORATORY | | | | | | SERVICES, | | | | | | CORE | | + + + + + + | PLATELET | 197 | 150 - 400 K/cu | [facility] [...] + + + + | NRBC% | 0.2 | 0.0 - 0.3 % | [facility] | | | | | | LABORATORY | | | | | | SERVICES, | | | | | | CORE | | + + + + + + | NRBC# | 0.02 | 0.00 - 0.02 | [facility] | [...] | + + + + + | [facility] | [address] | [place] [address] | | | SERVICES, CORE | [address] | | | + + + + + HEPARIN, EITHER STANDARD / LMW, BLOOD (11/15/2015 5:49 AM PDT) + +-------+ + + + | Component | Value | Ref Range | Performed | Pathologist | | | | | At | Signature | + +-------+ + + + | HEPARIN, | 0.73 | U/mL | [facility] | | | STD LMW | | | LABORATORY | | | | | | SERVICES, | | | | | | CORE | | + +-------+ + + + + + | Specimen | + + | Blood - Blood | | (substance) | + + + + + | Narrative | Performed At | + + + | Venous Disease Heparin Protocol Heparin level 6 hrs after every | [facility] | | heparin rate change; If heparin level within target range for 2 | LABORATORY | | consecutive results, recheck every AM Heparin, Either STD/LMW - | SERVICES, CORE | | Therapeutic Ranges: Heparin, Unfractionated: 0.35 - 0.70 U/mL | | | Enoxaparin, LMWH: 0.70 - 1.20 U/mL Dalteparin, LMWH: | | | 0.70 - 1.20 U/mL Tinzaparin, LMWH: Therapeutic | | | range not established. | | | Preliminary studies suggest range | | | similar to dalteparin. Clinical | | | correlation required. Heparin levels may be unreliable for: | | | Total bilirubin >28.8 mg/dL | | | Triglycerides >690 mg/dL | | | or Moderate to Gross Hemolysis | | + + + + + + + + | Performing | Address | City/State/Zipcode | Phone Number | | Organization | | | | + + + + + | [facility] | [address] | [place] [address] | | | SERVICES, CORE | [address] | | | + + + + + INR (11/15/2015 5:49 AM PDT) + + + + + + | Component | Value | Ref Range | Performed | Pathologist | | | | | At | Signature | + + + + + + | INR | 1.79 (H) | 0.90 - 1.20 INR | [facility] [...] Performed At | + + + | Venous Disease Heparin Protocol Heparin level 6 hrs after every | [facility] | | heparin rate change; If heparin level within target range for 2 | LABORATORY | | consecutive results, recheck every AM INR Therapeutic ranges for | SERVICES, CORE | | full anticoagulation: INR for Venous Thromboembolism | | | (2.0 - 3.0) INR INR for most patients with mech. valves (2.5 | | | - 3.5) INR | | + + + + + + + + | Performing | Address | City/State/Zipcode | Phone Number | | Organization | | | | + + + + + | [facility] | [address] | [place] [address] | | | SERVICES, CORE | [address] | | | + + + + + MAGNESIUM, PLASMA (11/15/2015 5:49 AM PDT) + +-------+ + + + | Component | Value | Ref Range | Performed | Pathologist | | | | | At | Signature | + +-------+ + + + | MAGNESIUM,P | 2.2 | 1.8 - 2.5 mg/dL | [facility] | | | LASMA | | | LABORATORY | | | | | | CLAIRE, | | | | | | CORE | | + +-------+ + + + + + | Specimen | + + | Blood - Blood | | (substance) | + + + + + + + | Performing | Address | City/State/Zipcode | Phone Number | | Organization | | | | + + + + + | [facility] | [address] | [place] [address] | | | SERVICES, CORE | [address] | | | + + + + + BASIC METABOLIC SET (NA, K, CL, TCO2, BUN, CR, GLU, CA) (11/15/2015 5:49 AM PDT) + +---------+ + + + | Component | Value | Ref Range | Performed | Pathologist | | | | | At | Signature | + +---------+ + + + | GLUCOSE, | 147 (H) | 60 - 99 mg/dL | [facility] | | | PLASMA | | | LABORATORY | | | (LAB) | | | SERVICES, | | | | | | CORE | | + +---------+ + + + | BUN, PLASMA | 26 (H) | 6 - 20 mg/dL | [facility] | | | (LAB) | | | LABORATORY | | | | | | SERVICES, | | | | | | CORE | | + +---------+ + + + | CREATININE | 0.84 | 0.60 - 1.10 | [facility] | | | PLASMA | | mg/dL | LABORATORY | | | (LAB) | | | SERVICES, | | | | | | CORE | | + +---------+ + + + | EGFR | >60 | >60 mL/min | [facility] | | | - | | | LABORATORY | | | [place] | | | SERVICES, | | | | | | CORE | | + +---------+ + + + | EGFR NON | >60 | >60 mL/min | [facility] | | | -RAJNI | | | LABORATORY | | | [facility] | | | SERVICES, | | | | | | CORE | | + +---------+ + + + | SODIUM, | 137 | 136 - 145 | [facility] | [...] + + + | TOTAL CO2, | 23 | 21 - 32 mmol/L | [facility] | | | PLASMA | | | LABORATORY | | | (LAB) | | | SERVICES, | | | | | | CORE | | + +---------+ + + + | CALCIUM, | 9.7 | 8.6 - 10.2 | [facility] | | | PLASMA | | mg/dL | LABORATORY | | | (LAB) | | | SERVICES, | | | | | | CORE | | + +---------+ + + + | ANION GAP | 8 | mmol/L | [facility] | | | [...] | + + + + + | [facility] | [address] | [place] [address] | | | SERVICES, CORE | [address] | | | + + + + + CAPILLARY BLOOD GLUCOSE (NO CHG), POC (11/14/2015 8:59 PM PDT) + +---------+ + + + | Component | Value | Ref Range | Performed | Pathologist | | | | | At | Signature | + +---------+ + + + | BLOOD | 150 (H) | 60 - 99 mg/dL | [facility] - | | | GLUCOSE, | [...] + | [facility] | [address] | [place], [place] | | | [facility] [facility] | [address] | [address] | | | TESTS | | | | + + + + + HEPARIN, EITHER STANDARD / LMW, BLOOD (11/14/2015 6:29 PM PDT) + +-------+ + + + | Component | Value | Ref Range | Performed | Pathologist | | | | | At | Signature | + +-------+ + + + | HEPARIN, | 0.61 | U/mL | [facility] | | | STD LMW | | | LABORATORY | | | | | | SERVICES, | | | | | | CORE | | + +-------+ + + + + + | Specimen | + + | Blood - Blood | | (substance) | + + + + + | Narrative | Performed At | + + + | Venous Disease Heparin Protocol Heparin level 6 hrs after every | [facility] | | heparin rate change; If heparin level within target range for 2 | LABORATORY | | consecutive results, recheck every AM Heparin, Either STD/LMW - | SERVICES, CORE | | Therapeutic Ranges: Heparin, Unfractionated: 0.35 - 0.70 U/mL | | | Enoxaparin, LMWH: 0.70 - 1.20 U/mL Dalteparin, LMWH: | | | 0.70 - 1.20 U/mL Tinzaparin, LMWH: Therapeutic | | | range not established. | | | Preliminary studies suggest range | | | similar to dalteparin. Clinical | | | correlation required. Heparin levels may be unreliable for: | | | Total bilirubin >28.8 mg/dL | | | Triglycerides >690 mg/dL | | | or Moderate to Gross Hemolysis | | + + + + + + + + | Performing | Address | City/State/Zipcode | Phone Number | | Organization | | | | + + + + + | [facility] | [address] | [place] [address] | | | SERVICES, [place] | [address] | | | + + + + + CAPILLARY BLOOD GLUCOSE (NO CHG), POC (11/14/2015 5:56 PM PDT) + +---------+ + + + | Component | Value | Ref Range | Performed | Pathologist | | | | | At | Signature | + +---------+ + + + | BLOOD | 156 (H) | 60 - 99 mg/dL | [...] | [facility] | [address] | [place], [place] | | | [facility] | [facility] | [address] | | | TESTS | | | | + + + + + CAPILLARY BLOOD GLUCOSE (NO CHG), POC (11/14/2015 2:17 PM PDT) + +---------+ + + + | Component | Value | Ref Range | Performed | Pathologist | | | | | At | Signature | + +---------+ + + + | BLOOD | 121 (H) | 60 - 99 mg/dL | [facility] - | | | GLUCOSE, | [...] | [facility] | [address] | [place], [place] | | | [facility] [facility] | [address] | [address] | | | TESTS | | | | + + + + + HEPARIN, EITHER STANDARD / LMW, BLOOD (11/14/2015 12:05 PM PDT) + +-------+ + + + | Component | Value | Ref Range | Performed | Pathologist | | | | | At | Signature | + +-------+ + + + | HEPARIN, | 0.69 | U/mL | [facility] | | | STD LMW | | | LABORATORY | | | | | | SERVICES, | | | | | | CORE | | + +-------+ + + + + + | Specimen | + + | Blood - Blood | | (substance) | + + + + + | Narrative | Performed At | + + + | Venous Disease Heparin Protocol Heparin level 6 hrs after every | [facility] | | heparin rate change; If heparin level within target range for 2 | LABORATORY | | consecutive results, recheck every AM Heparin, Either STD/LMW - | SERVICES, CORE | | Therapeutic Ranges: Heparin, Unfractionated: 0.35 - 0.70 U/mL | | | Enoxaparin, LMWH: 0.70 - 1.20 U/mL Dalteparin, LMWH: | | | 0.70 - 1.20 U/mL Tinzaparin, LMWH: Therapeutic | | | range not established. | | | Preliminary studies suggest range | | | similar to dalteparin. Clinical | | | correlation required. Heparin levels may be unreliable for: | | | Total bilirubin >28.8 mg/dL | | | Triglycerides >690 mg/dL | | | or Moderate to Gross Hemolysis | | + + + + + + + + | Performing | Address | City/State/Zipcode | Phone Number | | Organization | | | | + + + + + | [facility] | [address] | [place] [address] | | | SERVICES, CORE | [address] | | | + + + + + CAPILLARY BLOOD GLUCOSE (NO CHG), POC (11/14/2015 9:42 AM PDT) + +---------+ + + + | Component | Value | Ref Range | Performed | Pathologist | | | | | At | Signature | + +---------+ + + + | BLOOD | 128 (H) | 60 - 99 mg/dL | [...] | [facility] | [address] | [place], [place] | | | [facility] | [address] | [address] | | | TESTS | | | | + + + + + INR (11/14/2015 4:19 AM PDT) + + + + + + | Component | Value | Ref Range | Performed | Pathologist | | | | | At | Signature | + + + + + + | INR | 1.46 (H) | 0.90 - 1.20 INR | [facility] [...] Performed At | + + + | Venous Disease Heparin Protocol Heparin level 6 hrs after every | [facility] | | heparin rate change; If heparin level within target range for 2 | LABORATORY | | consecutive results, recheck every AM INR Therapeutic ranges for | SERVICES, CORE | | full anticoagulation: INR for Venous Thromboembolism | | | (2.0 - 3.0) INR INR for most patients with mech. valves (2.5 | | | - 3.5) INR | | + + + + + + + + | Performing | Address | City/State/Zipcode | Phone Number | | Organization | | | | + + + + + | [facility] | [address] | [place] [address] | | | SERVICES, CORE | [address] | | | + + + + + HEPARIN, EITHER STANDARD / LMW, BLOOD (11/14/2015 4:19 AM PDT) + +-------+ + + + | Component | Value | Ref Range | Performed | Pathologist | | | | | At | Signature | + +-------+ + + + | HEPARIN, | 0.73 | U/mL | [facility] | | | STD LMW | | | LABORATORY | | | | | | SERVICES, | | | | | | CORE | | + +-------+ + + + + + | Specimen | + + | Blood - Blood | | (substance) | + + + + + | Narrative | Performed At | + + + | Venous Disease Heparin Protocol Heparin level 6 hrs after every | [facility] | | heparin rate change; If heparin level within target range for 2 | LABORATORY | | consecutive results, recheck every AM Heparin, Either STD/LMW - | SERVICES, CORE | | Therapeutic Ranges: Heparin, Unfractionated: 0.35 - 0.70 U/mL | | | Enoxaparin, LMWH: 0.70 - 1.20 U/mL Dalteparin, LMWH: | | | 0.70 - 1.20 U/mL Tinzaparin, LMWH: Therapeutic | | | range not established. | | | Preliminary studies suggest range | | | similar to dalteparin. Clinical | | | correlation required. Heparin levels may be unreliable for: | | | Total bilirubin >28.8 mg/dL | | | Triglycerides >690 mg/dL | | | or Moderate to Gross Hemolysis | | + + + + + + + + | Performing | Address | City/State/Zipcode | Phone Number | | Organization | | | | + + + + + | [facility] | [address] | [place] [address] | | | SERVICES, CORE | [address] | | | + + + + + MAGNESIUM, PLASMA (11/14/2015 4:19 AM PDT) + +-------+ + + + | Component | Value | Ref Range | Performed | Pathologist | | | | | At | Signature | + +-------+ + + + | MAGNESIUM,P | 2.4 | 1.8 - 2.5 mg/dL | [facility] | | | LASMA | | | LABORATORY | | | | | | CLAIRE, | | | | | | CORE | | + +-------+ + + + + + | Specimen | + + | Blood - Blood | | (substance) | + + + + + + + | Performing | Address | City/State/Zipcode | Phone Number | | Organization | | | | + + + + + | [facility] | [address] | [place] [address] | | | SERVICES, CORE | [address] | | | + + + + + BASIC METABOLIC SET (NA, K, CL, TCO2, BUN, CR, GLU, CA) (11/14/2015 4:19 AM PDT) + +---------+ + + + | Component | Value | Ref Range | Performed | Pathologist | | | | | At | Signature | + +---------+ + + + | GLUCOSE, | 152 (H) | 60 - 99 mg/dL | [...] +---------+ + + + | CREATININE | 0.88 | 0.60 - 1.10 | [facility] | | | PLASMA | | mg/dL | LABORATORY | | | (LAB) | | | SERVICES, | | | | | | CORE | | + +---------+ + + + | EGFR | >60 | >60 mL/min | [facility] | | | - | | | LABORATORY | | | [place] | | | SERVICES, | | | [...] +---------+ + + + | CHLORIDE, | 105 | 97 - 108 mmol/L | [facility] | | | PLASMA | | | LABORATORY | | | (LAB) | | | SERVICES, | | | | | | CORE | | + +---------+ + + + | TOTAL CO2, | 24 | 21 - 32 mmol/L | [facility] | | | PLASMA | | | LABORATORY | | | (LAB) | | | SERVICES, | | | | | | CORE | | + +---------+ + + + | CALCIUM, | 9.4 | 8.6 - 10.2 | [facility] | | | PLASMA | | mg/dL | LABORATORY | | | (LAB) | | | SERVICES, | | | | | | CORE | | + +---------+ + + + | ANION GAP | 9 | mmol/L | [facility] | | | [...] | + + + + + | [facility] | [address] | [place] [address] | | | SERVICES, CORE | [address] | | | + + + + + CAPILLARY BLOOD GLUCOSE (NO CHG), POC (11/13/2015 9:45 PM PDT) + +---------+ + + + | Component | Value | Ref Range | Performed | Pathologist | | | | | At | Signature | + +---------+ + + + | BLOOD | 159 (H) | 60 - 99 mg/dL | [facility] - | | | GLUCOSE, | [...] + | [facility] | [address] | [place], [place] | | | [facility] | [address] | [address] | | | TESTS | | | | + + + + + CAPILLARY BLOOD GLUCOSE (NO CHG), POC (11/13/2015 6:48 PM PDT) + +---------+ + + + | Component | Value | Ref Range | Performed | Pathologist | | | | | At | Signature | + +---------+ + + + | BLOOD | 148 (H) | 60 - 99 mg/dL | [...] | [facility] | [address] | [place], [place] | | | [facility] | [address] | [address] | | | TESTS | | | | + + + + + CAPILLARY BLOOD GLUCOSE (NO CHG), POC (11/13/2015 1:38 PM PDT) + +---------+ + + + [...] | [facility] | [address] | [place], [place] | | | [facility] | [address] | [address] | | | TESTS | | | | + + + + + CAPILLARY BLOOD GLUCOSE (NO CHG), POC (11/13/2015 9:03 AM PDT) + +---------+ + + + | Component | Value | Ref Range | Performed | Pathologist | | | | | At | Signature | + +---------+ + + + | BLOOD | 147 (H) | 60 - 99 mg/dL | [...] + | [facility] | [address] | [place], [place] | | | [facility] | [address] | [address] | | | TESTS | | | | + + + + + LIVER SET (AST,ALT,BILI TOTAL,BILI DIRECT,ALK PHOS,ALB,PROT TOTAL) (11/13/2015 5:44 AM PDT ) + +---------+ + + + | Component | Value | Ref Range | Performed | Pathologist | | | | | At | Signature | + +---------+ + + + | ALBUMIN, | 3.2 [...] + + + | ALK PHOS | 101 (H) | 42 - 98 U/L | [facility] | | | | | | LABORATORY | | | | | | SERVICES, | | | | | | CORE | | + +---------+ + + + | AST(SGOT) | 47 (H) | <=41 U/L | [facility] | | | | | | LABORATORY | | | | | | SERVICES, | | | | | | CORE | | + +---------+ + + + | ALT (SGPT) | 55 | <=60 U/L | [facility] | | | | | | LABORATORY | | | | | | SERVICES, | | | | | | CORE | | + +---------+ + + + | TOTAL | 7.7 | 6.4 - 8.2 g/dL | [facility] [...] + | [facility] | [address] | [place] [address] | | | SERVICES, CORE | [address] | | | + + + + + CBC AND AUTO DIFF (11/13/2015 5:44 AM PDT) + + + + + + | Component | Value | Ref Range | Performed | Pathologist | | | | | At | Signature | + + + + + + | WHITE CELL | 11.11 (H) | 4.40 - 11.00 | [facility] | | | COUNT | | K/cu mm | LABORATORY | | | | | | SERVICES, | | | | | | CORE | | + + + + + + | RED CELL | 4.45 | 4.00 - 5.20 | [facility] | | | COUNT | | M/cu mm | LABORATORY | | | | | | SERVICES, | | | | | | CORE | | + + + + + + | HEMOGLOBIN | 10.7 (L) | 12.0 - 16.0 | [facility] [...] + + + + | MCHC | 29.5 | 33.0 - 35.5 | [facility] | | | | | g/dL | LABORATORY | | | | | | SERVICES, | | | | | | CORE | | + + + + + + | RDW SD | 52.9 (H) | 35.1 - 46.3 fL | [facility] | | | | | | LABORATORY | | | | | | SERVICES, | | | | | | CORE | | + + + + + + | PLATELET | 272 | 150 - 400 K/cu | [facility] | | | COUNT | | mm | LABORATORY | | | | | | SERVICES, | | | | | | CORE | | + + + + + + | MPV | 9.4 (L) | 9.7 - 12.3 fL | [facility] | | | | | | LABORATORY | | | | | | SERVICES, | | | | | | CORE | | + + + + + + | NRBC% | 0.2 | 0.0 - 0.3 % | [facility] | | | | | | LABORATORY | | | | | | SERVICES, | | | | | | CORE | | + + + + + + | NRBC# | 0.02 | 0.00 - 0.02 | [facility] | | | | | K/cu mm | LABORATORY | | | | | | SERVICES, | | | | | | CORE | | + + + + + + | NEUTROPHIL | 52.0 | 50.0 - 70.0 % | [facility] | | | % | | | LABORATORY | | | | | | SERVICES, | | | | | | CORE | | + + + + + + | LYMPHOCYTE | 30.1 | 18.0 - 42.0 % | [facility] | | | % | | | LABORATORY | | | | | | SERVICES, | | | | | | CORE | | + + + + + + | MONOCYTE % | 9.1 (H) | 3.5 - 9.0 % | [facility] | | | | | | LABORATORY | | | | | | SERVICES, | | | | | | CORE | | + + + + + + | EOS % | 6.9 (H) | 1.0 - 3.0 % | [...] + + + + | IG% | 1.3 (H)Comment: Immature | 0.0 - 0.6 % | [facility] | | | | Granulocytes (IG) | | LABORATORY | | | | include metamyelocytes, | | SERVICES, | | | | myelocytes and | | CORE | | | | promyelocytes. Bands | | | | | | are not included in the | | | | | | IG count. Bands are | | | | | | included in the | | | | | | neutrophil count. | | | | + + + + + + | NEUTROPHIL | 5.78 | 1.80 - 7.70 | [facility] | | | # | | K/cu mm | LABORATORY | | | | | | SERVICES, | | | | | | CORE | | + + + + + + | LYMPHOCYTE | 3.34 | 1.00 - 4.80 | [facility] | | | # | | K/cu mm | LABORATORY | | | | | | SERVICES, | | | | | | CORE | | + + + + + + | MONOCYTE # | 1.01 (H) | 0.10 - 0.90 | [facility] | | | | | K/cu mm | LABORATORY | | | | | | SERVICES, | | | | | | CORE | | + + + + + + | EOS # | 0.77 (H) | 0.00 - 0.50 | [facility] [...] + + + + | IG# | 0.14 (H) | 0.00 - 0.03 | [facility] [...] + | [facility] | [address] | [place] [address] | | | SERVICES, CORE | [address] | | | + + + + + HEPARIN, EITHER STANDARD / LMW, BLOOD (11/13/2015 5:44 AM PDT) + +-------+ + + + | Component | Value | Ref Range | Performed | Pathologist | | | | | At | Signature | + +-------+ + + + | HEPARIN, | 0.60 | U/mL | [facility] | | | STD LMW | | | LABORATORY | | | | | | SERVICES, | | | | | | CORE | | + +-------+ + + + + + | Specimen | + + | Blood - Blood | | (substance) | + + + + + | Narrative | Performed At | + + + | Venous Disease Heparin Protocol Heparin level 6 hrs after every | [facility] | | heparin rate change; If heparin level within target range for 2 | LABORATORY | | consecutive results, recheck every AM Heparin, Either STD/LMW - | SERVICES, CORE | | Therapeutic Ranges: Heparin, Unfractionated: 0.35 - 0.70 U/mL | | | Enoxaparin, LMWH: 0.70 - 1.20 U/mL Dalteparin, LMWH: | | | 0.70 - 1.20 U/mL Tinzaparin, LMWH: Therapeutic | | | range not established. | | | Preliminary studies suggest range | | | similar to dalteparin. Clinical | | | correlation required. Heparin levels may be unreliable for: | | | Total bilirubin >28.8 mg/dL | | | Triglycerides >690 mg/dL | | | or Moderate to Gross Hemolysis | | + + + + + + + + | Performing | Address | City/State/Zipcode | Phone Number | | Organization | | | | + + + + + | [facility] | [address] | [place] [address] | | | SERVICES, CORE | [address] | | | + + + + + INR (11/13/2015 5:44 AM PDT) + + + + + + | Component | Value | Ref Range | Performed | Pathologist | | | | | At | Signature | + + + + + + | INR | 1.34 (H) | 0.90 - 1.20 INR | [facility] [...] Performed At | + + + | Venous Disease Heparin Protocol Heparin level 6 hrs after every | [facility] | | heparin rate change; If heparin level within target range for 2 | LABORATORY | | consecutive results, recheck every AM INR Therapeutic ranges for | SERVICES, CORE | | full anticoagulation: INR for Venous Thromboembolism | | | (2.0 - 3.0) INR INR for most patients with mech. valves (2.5 | | | - 3.5) INR | | + + + + + + + + | Performing | Address | City/State/Zipcode | Phone Number | | Organization | | | | + + + + + | [facility] | [address] | [place] [address] | | | SERVICES, CORE | [address] | | | + + + + + MAGNESIUM, PLASMA (11/13/2015 5:44 AM PDT) + +-------+ + + + | Component | Value | Ref Range | Performed | Pathologist | | | | | At | Signature | + +-------+ + + + | MAGNESIUM,P | 2.3 | 1.8 - 2.5 mg/dL | [facility] | | | LASMA | | | LABORATORY | | | [...] + | [facility] | [address] | [place] [address] | | | SERVICES, CORE | [address] | | | + + + + + BASIC METABOLIC SET (NA, K, CL, TCO2, BUN, CR, GLU, CA) (11/13/2015 5:44 AM PDT) + +---------+ + + + | Component | Value | Ref Range | Performed | Pathologist | | | | | At | Signature | + +---------+ + + + | GLUCOSE, | 130 (H) | 60 - 99 mg/dL | [facility] | | | PLASMA | | | LABORATORY | | | (LAB) | | | SERVICES, | | | | | | CORE | | + +---------+ + + + | BUN, PLASMA | 23 (H) | 6 - 20 mg/dL | [facility] | | | (LAB) | | | LABORATORY | | | | | | SERVICES, | | | | | | CORE | | + +---------+ + + + | CREATININE | 0.88 | 0.60 - 1.10 | [facility] | | | PLASMA | | mg/dL | LABORATORY | | | (LAB) | | | SERVICES, | | | | | | CORE | | + +---------+ + + + | EGFR | >60 | >60 mL/min | [facility] | | | - | | | LABORATORY | | | [place] | | | SERVICES, | | | [...] +---------+ + + + | POTASSIUM, | 3.6 | 3.4 - 5.0 | [facility] | [...] + + + | TOTAL CO2, | 23 | 21 - 32 mmol/L | [facility] | | | PLASMA | | | LABORATORY | | | (LAB) | | | SERVICES, | | | | | | CORE | | + +---------+ + + + | CALCIUM, | 9.3 | 8.6 - 10.2 | [facility] | | | PLASMA | | mg/dL | LABORATORY | | | (LAB) | | | SERVICES, | | | | | | CORE | | + +---------+ + + + | ANION GAP | 9 | mmol/L | [facility] | | | [...] | + + + + + | [facility] | [address] | [place] [address] | | | CLAIRE, LYDIA | [address] | | | + + + + + MAGNESIUM, PLASMA (11/12/2015 11:47 PM PDT) + +-------+ + + + | Component | Value | Ref Range | Performed | Pathologist | | | | | At | Signature | + +-------+ + + + | MAGNESIUM,P | 2.3 | 1.8 - 2.5 mg/dL | [facility] | | | LASMA | | | LABORATORY | | | [...] | + + + + + | [facility] | [address] | [place] [address] | | | LYDIA RANGEL | [address] | | | + + + + + BASIC METABOLIC SET (NA, K, CL, TCO2, BUN, CR, GLU, CA) (11/12/2015 11:47 PM PDT) + +---------+ + + + | Component | Value | Ref Range | Performed | Pathologist | | | | | At | Signature | + +---------+ + + + | GLUCOSE, | 149 (H) | 60 - 99 mg/dL | [facility] | | | PLASMA | | | LABORATORY | | | (LAB) | | | SERVICES, | | | | | | CORE | | + +---------+ + + + | BUN, PLASMA | 23 (H) | 6 - 20 mg/dL | [facility] | | | (LAB) | | | LABORATORY | | | | | | SERVICES, | | | | | | CORE | | + +---------+ + + + | CREATININE | 0.99 | 0.60 - 1.10 | [facility] | | | PLASMA | | mg/dL | LABORATORY | | | (LAB) | | | SERVICES, | | | | | | CORE | | + +---------+ + + + | EGFR | >60 | >60 mL/min | [facility] | | | - | | | LABORATORY | | | [place] | | | SERVICES, | | | | | | CORE | | + +---------+ + + + | EGFR NON | >60 | >60 mL/min | [facility] | | | -[facility] | | | LABORATORY | | | [facility] | | | SERVICES, | | | | | | CORE | | + +---------+ + + + | SODIUM, | 137 | 136 - 145 | [facility] | | | PLASMA | | mmol/L | LABORATORY | | | (LAB) | | | SERVICES, | | | | | | CORE | | + +---------+ + + + | POTASSIUM, | 3.6 | 3.4 - 5.0 | [facility] | | | PLASMA | | mmol/L | LABORATORY | | | (LAB) | | | SERVICES, | | | | | | CORE | | + +---------+ + + + | CHLORIDE, | 104 | 97 - 108 mmol/L | [facility] | | | PLASMA | | | LABORATORY | | | (LAB) | | | SERVICES, | | | | | | CORE | | + +---------+ + + + | TOTAL CO2, | 23 | 21 - 32 mmol/L | [facility] | | | PLASMA | | | LABORATORY | | | (LAB) | | | SERVICES, | | | | | | CORE | | + +---------+ + + + | CALCIUM, | 9.4 | 8.6 - 10.2 | [facility] | | | PLASMA | | mg/dL | LABORATORY | | | (LAB) | | | SERVICES, | | | | | | CORE | | + +---------+ + + + | ANION GAP | 10 | mmol/L | [facility] | | | [...] | + + + + + | [facility] | [address] | [place] [address] | | | SERVICES, CORE | [address] | | | + + + + + CAPILLARY BLOOD GLUCOSE (NO CHG), POC (11/12/2015 10:32 PM PDT) + +---------+ + + + [...] + | [facility] | [address] | [place], [place] | | | [facility] | [facility] | [id number] | | | TESTS | | | | + + + + + CAPILLARY BLOOD GLUCOSE (NO CHG), POC (11/12/2015 7:00 PM PDT) + +---------+ + + + | Component | Value | Ref Range | Performed | Pathologist | | | | | At | Signature | + +---------+ + + + | BLOOD | 127 (H) | 60 - 99 mg/dL | [facility] - | | | GLUCOSE, | [...] + | [facility] | [address] | [place], [place] | | | [facility] | [address] | [address] | | | TESTS | | | | + + + + + CAPILLARY BLOOD GLUCOSE (NO CHG), POC (11/12/2015 1:27 PM PDT) + +---------+ + + + [...] + | [facility] | [address] | [place], [place] | | | [facility] DAWN | [facility] | [address] | | | TESTS | | | | + + + + + CAPILLARY BLOOD GLUCOSE (NO CHG)VALERIE (11/12/2015 8:39 AM PDT) + +---------+ + + + | Component | Value | Ref Range | Performed | Pathologist | | | | | At | Signature | + +---------+ + + + | BLOOD | 140 (H) | 60 - 99 mg/dL | [...] | [facility] | [address] | [place], [place] | | | [facility] | [address] | [address] | | | TESTS | | | | + + + + + HEPARIN, EITHER STANDARD / LMW, BLOOD (11/12/2015 4:13 AM PDT) + +-------+ + + + | Component | Value | Ref Range | Performed | Pathologist | | | | | At | Signature | + +-------+ + + + | HEPARIN, | 0.48 | U/mL | [facility] | | | STD LMW | | | LABORATORY | | | | | | SERVICES, | | | | | | CORE | | + +-------+ + + + + + | Specimen | + + | Blood - Blood | | (substance) | + + + + + | Narrative | Performed At | + + + | Venous Disease Heparin Protocol Heparin level 6 hrs after every | [facility] | | heparin rate change; If heparin level within target range for 2 | LABORATORY | | consecutive results, recheck every AM Heparin, Either STD/LMW - | SERVICES, CORE | | Therapeutic Ranges: Heparin, Unfractionated: 0.35 - 0.70 U/mL | | | Enoxaparin, LMWH: 0.70 - 1.20 U/mL Dalteparin, LMWH: | | | 0.70 - 1.20 U/mL Tinzaparin, LMWH: Therapeutic | | | range not established. | | | Preliminary studies suggest range | | | similar to dalteparin. Clinical | | | correlation required. Heparin levels may be unreliable for: | | | Total bilirubin >28.8 mg/dL | | | Triglycerides >690 mg/dL | | | or Moderate to Gross Hemolysis | | + + + + + + + + | Performing | Address | City/State/Zipcode | Phone Number | | Organization | | | | + + + + + | [facility] | [address] | [place] [address] | | | SERVICES, CORE | [address] | | | + + + + + INR (11/12/2015 4:13 AM PDT) + + + + + + | Component | Value | Ref Range | Performed | Pathologist | | | | | At | Signature | + + + + + + | INR | 1.25 (H) | 0.90 - 1.20 INR | [facility] [...] Performed At | + + + | Venous Disease Heparin Protocol Heparin level 6 hrs after every | [facility] | | heparin rate change; If heparin level within target range for 2 | LABORATORY | | consecutive results, recheck every AM INR Therapeutic ranges for | SERVICES, CORE | | full anticoagulation: INR for Venous Thromboembolism | | | (2.0 - 3.0) INR INR for most patients with mech. valves (2.5 | | | - 3.5) INR | | + + + + + + + + | Performing | Address | City/State/Zipcode | Phone Number | | Organization | | | | + + + + + | [facility] | [address] | [place] [address] | | | SERVICES, CORE | [address] | | | + + + + + MAGNESIUM, PLASMA (11/12/2015 4:13 AM PDT) + +-------+ + + + | Component | Value | Ref Range | Performed | Pathologist | | | | | At | Signature | + +-------+ + + + | MAGNESIUM,P | 2.3 | 1.8 - 2.5 mg/dL | [facility] | | | LASMA | | | LABORATORY | | | [...] | + + + + + | [facility] | [address] | [place] [address] | | | SERVICES, CORE | [address] | | | + + + + + BASIC METABOLIC SET (NA, K, CL, TCO2, BUN, CR, GLU, CA) (11/12/2015 4:13 AM PDT) + +---------+ + + + | Component | Value | Ref Range | Performed | Pathologist | | | | | At | Signature | + +---------+ + + + | GLUCOSE, | 131 (H) | 60 - 99 mg/dL | [facility] | | | PLASMA | | | LABORATORY | | | (LAB) | | | SERVICES, | | | | | | CORE | | + +---------+ + + + | BUN, PLASMA | 19 | 6 - 20 mg/dL | [facility] [...] | | | LABORATORY | | | [place] | | | SERVICES, | | | [...] +---------+ + + + | CHLORIDE, | 108 [...] +---------+ + + + | CALCIUM, | 8.8 | 8.6 - 10.2 | [facility] | | | PLASMA | | mg/dL | LABORATORY | | | (LAB) | | | SERVICES, | | | | | | CORE | | + +---------+ + + + | ANION GAP | 10 | mmol/L | [facility] | | | [...] | + + + + + | [facility] | [address] | [place] [address] | | | SERVICES, CORE | [address] | | | + + + + + CAPILLARY BLOOD GLUCOSE (NO CHG), POC (11/11/2015 10:19 PM PDT) + +---------+ + + + [...] | [facility] | [address] | [place], [place] | | | [facility] | [address] | [address] | | | TESTS | | | | + + + + + HEPARIN, EITHER STANDARD / LMW, BLOOD (11/11/2015 10:03 PM PDT) + +-------+ + + + | Component | Value | Ref Range | Performed | Pathologist | | | | | At | Signature | + +-------+ + + + | HEPARIN, | 0.40 | U/mL | [facility] | | | STD LMW | | | LABORATORY | | | | | | SERVICES, | | | | | | CORE | | + +-------+ + + + + + | Specimen | + + | Blood - Blood | | (substance) | + + + + + | Narrative | Performed At | + + + | Venous Disease Heparin Protocol Heparin level 6 hrs after every | [facility] | | heparin rate change; If heparin level within target range for 2 | LABORATORY | | consecutive results, recheck every AM Heparin, Either STD/LMW - | SERVICES, CORE | | Therapeutic Ranges: Heparin, Unfractionated: 0.35 - 0.70 U/mL | | | Enoxaparin, LMWH: 0.70 - 1.20 U/mL Dalteparin, LMWH: | | | 0.70 - 1.20 U/mL Tinzaparin, LMWH: Therapeutic | | | range not established. | | | Preliminary studies suggest range | | | similar to dalteparin. Clinical | | | correlation required. Heparin levels may be unreliable for: | | | Total bilirubin >28.8 mg/dL | | | Triglycerides >690 mg/dL | | | or Moderate to Gross Hemolysis | | + + + + + + + + | Performing | Address | City/State/Zipcode | Phone Number | | Organization | | | | + + + + + | [facility] | [address] | [place] [address] | | | SERVICES, CORE | [address] | | | + + + + + MADAY CEDILLO ONLY (11/11/2015 8:17 PM PDT) + + + + + [...] + + + + | SPECIFIC | 1.014 | 1.005 - 1.030 | [facility] | | | GRAVITY | | | LABORATORY | | | | | | SERVICES, | | | | | | CORE | | + + + + + + + + | Specimen | + + | Urine - Urine | | (substance) | + + + + + + + | Performing | Address | City/State/Zipcode | Phone Number | | Organization | | | | + + + + + | [facility] | [address] | [place] [address] | | | SERVICES, CORE | [address] | | | + + + + + URINE, MICROSCOPIC EXAM (11/11/2015 8:17 PM PDT) + +---------+ + + + | Component | Value | Ref Range | Performed | Pathologist | | | | | At | Signature | + +---------+ + + + | RED CELLS | 1 | 0 - 3 /hpf | [facility] | | | | | | LABORATORY | | | | | | SERVICES, | | | | | | CORE | | + +---------+ + + + | WHITE CELLS | 2 | 0 - 5 /hpf | [facility] | | | | | | LABORATORY | | | | | | SERVICES, | | | | | | CORE | | + +---------+ + + + | BACTERIA | None | None /hpf | [facility] | | | | | | LABORATORY | | | | | | SERVICES, | | | | | | CORE | | + +---------+ + + + | YEAST (LAB) | None | None /hpf | [facility] | | | | | | LABORATORY | | | | | | SERVICES, | | | | | | CORE | | + +---------+ + + + | SQUAMOUS | Few (A) | None /hpf | [facility] | | | EPITHELIAL | | | LABORATORY | | | | | | SERVICES, | | | | | | CORE | | + +---------+ + + + | MUCOUS | None | None /hpf | [facility] | | | | | | LABORATORY | | | | | | SERVICES, | | | | | | CORE | | + +---------+ + + + | TRICHOMONAS | None | None /hpf | [facility] | | | | | | LABORATORY | | | | | | SERVICES, | | | | | | CORE | | + +---------+ + + + | NON-SQUAMOU | None | None /hpf | [facility] | | | S EPITH | | | LABORATORY | | | | | | SERVICES, | | | | | | CORE | | + +---------+ + + + | HYALINE | 0 | 0 - 2 /lpf | [facility] | | | CASTS | | | LABORATORY | | | | | | SERVICES, | | | | | | CORE | | + +---------+ + + + | GRANULAR | 0 | 0 - 2 /lpf | [facility] | | | CASTS | | | LABORATORY | | | | | | SERVICES, | | | | | | CORE | | + +---------+ + + + | CELLULAR | 0 | <=0 /lpf | [facility] | | | CASTS | | | LABORATORY | | | | | | SERVICES, | | | | | | CORE | | + +---------+ + + + | TRIPLE P04 | None | None /hpf | [facility] | | | CRYSTALS | | | LABORATORY | | | | | | SERVICES, | | | | | | CORE | | + +---------+ + + + | CALCIUM | None | None /hpf | [facility] | | | OXALATE | | | LABORATORY | | | KATHE | | | SERVICES, | | | | | | CORE | | + +---------+ + + + | URIC ACID | None | None /hpf | [facility] | | | [facility] | | | LABORATORY | | | | | | SERVICES, | | | | | | CORE | | + +---------+ + + + | AMORPHOUS | Few (A) | None /hpf | [facility] | | | CRYSTALS | | | LABORATORY | | | | | | SERVICES, | | | | | | CORE | | + +---------+ + + + + + | Specimen | + + | Urine - Urine | | (substance) | + + + + + + + | Performing | Address | City/State/Zipcode | Phone Number | | Organization | | | | + + + + + | [facility] | [address] | [place] [address] | | | SERVICES, CORE | [address] | | | + + + + + URINE SCREEN FOR CULTURE (11/11/2015 8:17 PM PDT) + + + + + + | Component | Value | Ref Range | Performed | Pathologist | | | | | At | Signature | + + + + + + | URINE | Negative | Negative | [facility] | | | SCREEN FOR | | | LABORATORY | | | CULTURE | | | SERVICES, | | | | | | CORE | | + + + + + + + + | Specimen | + + | Urine - Urine | | (substance) | + + + + + | Narrative | Performed At | + + + | Culture Screen Negative. Culture not indicated. | [facility] | | | LABORATORY | | | LYDIA RANGEL | + + + + + + + + | Performing | Address | City/State/Zipcode | Phone Number | | Organization | | | | + + + + + | [facility] | [address] | [place] [address] | | | CLAIRE, LYDIA | [address] | | | + + + + + CAPILLARY BLOOD GLUCOSE (NO CHG), POC (11/11/2015 5:49 PM PDT) + +---------+ + + + | Component | Value | Ref Range | Performed | Pathologist | | | | | At | Signature | + +---------+ + + + | BLOOD | 155 (H) | 60 - 99 mg/dL | [...] | [facility] | [address] | [place], [place] | | | [facility] | [address] | [address] | | | TESTS | | | | + + + + + CAPILLARY BLOOD GLUCOSE (NO CHG), POC (11/11/2015 2:41 PM PDT) + +---------+ + + + [...] + | [facility] | [address] | [place], [place] | | | [facility] | [address] | [address] | | | TESTS | | | | + + + + + HEPARIN, EITHER STANDARD / LMW, BLOOD (11/11/2015 12:45 PM PDT) + +-------+ + + + | Component | Value | Ref Range | Performed | Pathologist | | | | | At | Signature | + +-------+ + + + | HEPARIN, | 0.28 | U/mL | [facility] | | | STD LMW | | | LABORATORY | | | | | | SERVICES, | | | | | | CORE | | + +-------+ + + + + + | Specimen | + + | Blood - Blood | | (substance) | + + + + + | Narrative | Performed At | + + + | Venous Disease Heparin Protocol Heparin level 6 hrs after every | [facility] | | heparin rate change; If heparin level within target range for 2 | LABORATORY | | consecutive results, recheck every AM Heparin, Either STD/LMW - | SERVICES, CORE | | Therapeutic Ranges: Heparin, Unfractionated: 0.35 - 0.70 U/mL | | | Enoxaparin, LMWH: 0.70 - 1.20 U/mL Dalteparin, LMWH: | | | 0.70 - 1.20 U/mL Tinzaparin, LMWH: Therapeutic | | | range not established. | | | Preliminary studies suggest range | | | similar to dalteparin. Clinical | | | correlation required. Heparin levels may be unreliable for: | | | Total bilirubin >28.8 mg/dL | | | Triglycerides >690 mg/dL | | | or Moderate to Gross Hemolysis | | + + + + + + + + | Performing | Address | City/State/Zipcode | Phone Number | | Organization | | | | + + + + + | [facility] | [address] | [place] [address] | | | SERVICES, LYDIA | [address] | | | + + + + + CAPILLARY BLOOD GLUCOSE (NO CHG), POC (11/11/2015 9:59 AM PDT) + +---------+ + + + | Component | Value | Ref Range | Performed | Pathologist | | | | | At | Signature | + +---------+ + + + | BLOOD | 141 (H) | 60 - 99 mg/dL | [...] + | [facility] | [address] | [place], [place] | | | [facility] | [facility] | [address] | | | TESTS | | | | + + + + + INR (11/11/2015 4:47 AM PDT) + + + + + + | Component | Value | Ref Range | Performed | Pathologist | | | | | At | Signature | + + + + + + | INR | 1.23 (H) | 0.90 - 1.20 INR | [facility] [...] Performed At | + + + | Venous Disease Heparin Protocol Heparin level 6 hrs after every | [facility] | | heparin rate change; If heparin level within target range for 2 | LABORATORY | | consecutive results, recheck every AM INR Therapeutic ranges for | SERVICES, CORE | | full anticoagulation: INR for Venous Thromboembolism | | | (2.0 - 3.0) INR INR for most patients with mech. valves (2.5 | | | - 3.5) INR | | + + + + + + + + | Performing | Address | City/State/Zipcode | Phone Number | | Organization | | | | + + + + + | [facility] | [address] | [place] [address] | | | SERVICES, CORE | [address] | | | + + + + + HEPARIN, EITHER STANDARD / LMW, BLOOD (11/11/2015 4:47 AM PDT) + +-------+ + + + | Component | Value | Ref Range | Performed | Pathologist | | | | | At | Signature | + +-------+ + + + | HEPARIN, | 0.44 | U/mL | [facility] | | | STD LMW | | | LABORATORY | | | | | | SERVICES, | | | | | | CORE | | + +-------+ + + + + + | Specimen | + + | Blood - Blood | | (substance) | + + + + + | Narrative | Performed At | + + + | Venous Disease Heparin Protocol Heparin level 6 hrs after every | [facility] | | heparin rate change; If heparin level within target range for 2 | LABORATORY | | consecutive results, recheck every AM Heparin, Either STD/LMW - | SERVICES, CORE | | Therapeutic Ranges: Heparin, Unfractionated: 0.35 - 0.70 U/mL | | | Enoxaparin, LMWH: 0.70 - 1.20 U/mL Dalteparin, LMWH: | | | 0.70 - 1.20 U/mL Tinzaparin, LMWH: Therapeutic | | | range not established. | | | Preliminary studies suggest range | | | similar to dalteparin. Clinical | | | correlation required. Heparin levels may be unreliable for: | | | Total bilirubin >28.8 mg/dL | | | Triglycerides >690 mg/dL | | | or Moderate to Gross Hemolysis | | + + + + + + + + | Performing | Address | City/State/Zipcode | Phone Number | | Organization | | | | + + + + + | [facility] | [address] | [place] [address] | | | SERVICES, CORE | [address] | | | + + + + + MAGNESIUM, PLASMA (11/11/2015 4:39 AM PDT) + +-------+ + + + | Component | Value | Ref Range | Performed | Pathologist | | | | | At | Signature | + +-------+ + + + | MAGNESIUM,P | 2.3 | 1.8 - 2.5 mg/dL | [facility] | | | LASMA | | | LABORATORY | | | [...] | + + + + + | [facility] | [address] | [place] [address] | | | SERVICES, CORE | [address] | | | + + + + + BASIC METABOLIC SET (NA, K, CL, TCO2, BUN, CR, GLU, CA) (11/11/2015 4:39 AM PDT) + +---------+ + + + | Component | Value | Ref Range | Performed | Pathologist | | | | | At | Signature | + +---------+ + + + | GLUCOSE, | 140 (H) | 60 - 99 mg/dL | [facility] | | | PLASMA | | | LABORATORY | | | (LAB) | | | SERVICES, | | | | | | CORE | | + +---------+ + + + | BUN, PLASMA | 18 | 6 - 20 mg/dL | [facility] | | | (LAB) | | | LABORATORY | | | | | | SERVICES, | | | | | | CORE | | + +---------+ + + + | CREATININE | 0.84 | 0.60 - 1.10 | [facility] | | | PLASMA | | mg/dL | LABORATORY | | | (LAB) | | | SERVICES, | | | | | | CORE | | + +---------+ + + + | EGFR | >60 | >60 mL/min | [facility] | | | - | | | LABORATORY | | | [place] | | | SERVICES, | | | | | | CORE | | + +---------+ + + + | EGFR NON | >60 | >60 mL/min | [facility] | | | -RAJNI | | | LABORATORY | | | RICAN | | | SERVICES, | | | | | | CORE | | + +---------+ + + + | SODIUM, | 141 | 136 - 145 | [facility] | [...] +---------+ + + + | CHLORIDE, | 108 | 97 - 108 mmol/L | [facility] | | | PLASMA | | | LABORATORY | | | (LAB) | | | SERVICES, | | | | | | CORE | | + +---------+ + + + | TOTAL CO2, | 23 | 21 - 32 mmol/L | [facility] | | | PLASMA | | | LABORATORY | | | (LAB) | | | SERVICES, | | | | | | CORE | | + +---------+ + + + | CALCIUM, | 8.7 | 8.6 - 10.2 | [facility] | | | PLASMA | | mg/dL | LABORATORY | | | (LAB) | | | SERVICES, | | | | | | CORE | | + +---------+ + + + | ANION GAP | 10 | mmol/L | [facility] | | | [...] | + + + + + | [facility] | [address] | [place] [address] | | | SERVICES, CORE | [address] | | | + + + + + CAPILLARY BLOOD GLUCOSE (NO CHG), POC (11/10/2015 11:15 PM PDT) + +---------+ + + + | Component | Value | Ref Range | Performed | Pathologist | | | | | At | Signature | + +---------+ + + + | BLOOD | 158 (H) | 60 - 99 mg/dL | [...] | [facility] | [address] | [place], [place] | | | [facility] | [address] | [address] | | | TESTS | | | | + + + + + HEPARIN, EITHER STANDARD / LMW, BLOOD (11/10/2015 8:48 PM PDT) + +-------+ + + + | Component | Value | Ref Range | Performed | Pathologist | | | | | At | Signature | + +-------+ + + + | HEPARIN, | 0.28 | U/mL | [facility] | | | STD LMW | | | LABORATORY | | | | | | SERVICES, | | | | | | CORE | | + +-------+ + + + + + | Specimen | + + | Blood - Blood | | (substance) | + + + + + | Narrative | Performed At | + + + | Venous Disease Heparin Protocol Heparin level 6 hrs after every | [facility] | | heparin rate change; If heparin level within target range for 2 | LABORATORY | | consecutive results, recheck every AM Heparin, Either STD/LMW - | SERVICES, CORE | | Therapeutic Ranges: Heparin, Unfractionated: 0.35 - 0.70 U/mL | | | Enoxaparin, LMWH: 0.70 - 1.20 U/mL Dalteparin, LMWH: | | | 0.70 - 1.20 U/mL Tinzaparin, LMWH: Therapeutic | | | range not established. | | | Preliminary studies suggest range | | | similar to dalteparin. Clinical | | | correlation required. Heparin levels may be unreliable for: | | | Total bilirubin >28.8 mg/dL | | | Triglycerides >690 mg/dL | | | or Moderate to Gross Hemolysis | | + + + + + + + + | Performing | Address | City/State/Zipcode | Phone Number | | Organization | | | | + + + + + | [facility] | [address] | [place] [address] | | | SERVICES, [place] | [address] | | | + + + + + CAPILLARY BLOOD GLUCOSE (NO CHG), POC (11/10/2015 8:19 PM PDT) + +---------+ + + + | Component | Value | Ref Range | Performed | Pathologist | | | | | At | Signature | + +---------+ + + + | BLOOD | 112 (H) | 60 - 99 mg/dL | [facility] - | | | GLUCOSE, | [...] | [facility] | [address] | [place], [place] | | | [facility] | [facility] | [address] | | | TESTS | | | | + + + + + CAPILLARY BLOOD GLUCOSE (NO CHG), POC (11/10/2015 2:14 PM PDT) + +-------+ + + + | Component | Value | Ref Range | Performed | Pathologist | | | | | At | Signature | + +-------+ + + + | BLOOD | 94 | 60 - 99 mg/dL | [facility] [...] + | [facility] | [address] | [place], [place] | | | [facility] | [address] | [address] | | | TESTS | | | | + + + + + HEPARIN, EITHER STANDARD / LMW, BLOOD (11/10/2015 12:14 PM PDT) + +-------+ + + + | Component | Value | Ref Range | Performed | Pathologist | | | | | At | Signature | + +-------+ + + + | HEPARIN, | 0.24 | U/mL | [facility] | | | STD LMW | | | LABORATORY | | | | | | SERVICES, | | | | | | CORE | | + +-------+ + + + + + | Specimen | + + | Blood - Blood | | (substance) | + + + + + | Narrative | Performed At | + + + | Venous Disease Heparin Protocol Heparin level 6 hrs after every | [facility] | | heparin rate change; If heparin level within target range for 2 | LABORATORY | | consecutive results, recheck every AM Heparin, Either STD/LMW - | SERVICES, CORE | | Therapeutic Ranges: Heparin, Unfractionated: 0.35 - 0.70 U/mL | | | Enoxaparin, LMWH: 0.70 - 1.20 U/mL Dalteparin, LMWH: | | | 0.70 - 1.20 U/mL Tinzaparin, LMWH: Therapeutic | | | range not established. | | | Preliminary studies suggest range | | | similar to dalteparin. Clinical | | | correlation required. Heparin levels may be unreliable for: | | | Total bilirubin >28.8 mg/dL | | | Triglycerides >690 mg/dL | | | or Moderate to Gross Hemolysis | | + + + + + + + + | Performing | Address | City/State/Zipcode | Phone Number | | Organization | | | | + + + + + | [facility] | [address] | [place] [address] | | | SERVICES, CORE | [address] | | | + + + + + CAPILLARY BLOOD GLUCOSE (NO CHG), POC (11/10/2015 9:10 AM PDT) + +---------+ + + + | Component | Value | Ref Range | Performed | Pathologist | | | | | At | Signature | + +---------+ + + + | BLOOD | 137 (H) | 60 - 99 mg/dL | [...] | [facility] | [address] | [place], [place] | | | [facility] | [facility] | [address] | | | TESTS | | | | + + + + + HEPARIN, EITHER STANDARD / LMW, BLOOD (11/10/2015 4:05 AM PDT) + +-------+ + + + | Component | Value | Ref Range | Performed | Pathologist | | | | | At | Signature | + +-------+ + + + | HEPARIN, | 0.24 | U/mL | [facility] | | | STD LMW | | | LABORATORY | | | | | | SERVICES, | | | | | | CORE | | + +-------+ + + + + + | Specimen | + + | Blood - Blood | | (substance) | + + + + + | Narrative | Performed At | + + + | Venous Disease Heparin Protocol Heparin level 6 hrs after every | [facility] | | heparin rate change; If heparin level within target range for 2 | LABORATORY | | consecutive results, recheck every AM Heparin, Either STD/LMW - | SERVICES, CORE | | Therapeutic Ranges: Heparin, Unfractionated: 0.35 - 0.70 U/mL | | | Enoxaparin, LMWH: 0.70 - 1.20 U/mL Dalteparin, LMWH: | | | 0.70 - 1.20 U/mL Tinzaparin, LMWH: Therapeutic | | | range not established. | | | Preliminary studies suggest range | | | similar to dalteparin. Clinical | | | correlation required. Heparin levels may be unreliable for: | | | Total bilirubin >28.8 mg/dL | | | Triglycerides >690 mg/dL | | | or Moderate to Gross Hemolysis | | + + + + + + + + | Performing | Address | City/State/Zipcode | Phone Number | | Organization | | | | + + + + + | [facility] | [address] | [place] [address] | | | SERVICES, CORE | [address] | | | + + + + + INR (11/10/2015 4:05 AM PDT) + +-------+ + + + | Component | Value | Ref Range | Performed | Pathologist | | | | | At | Signature | + +-------+ + + + | INR | 1.13 | 0.90 - 1.20 INR | [facility] [...] Performed At | + + + | Venous Disease Heparin Protocol Heparin level 6 hrs after every | [facility] | | heparin rate change; If heparin level within target range for 2 | LABORATORY | | consecutive results, recheck every AM INR Therapeutic ranges for | SERVICES, CORE | | full anticoagulation: INR for Venous Thromboembolism | | | (2.0 - 3.0) INR INR for most patients with mech. valves (2.5 | | | - 3.5) INR | | + + + + + + + + | Performing | Address | City/State/Zipcode | Phone Number | | Organization | | | | + + + + + | [facility] | [address] | [place] [address] | | | SERVICES, CORE | [address] | | | + + + + + MAGNESIUM, PLASMA (11/10/2015 4:05 AM PDT) + +-------+ + + + | Component | Value | Ref Range | Performed | Pathologist | | | | | At | Signature | + +-------+ + + + | MAGNESIUM,P | 2.2 | 1.8 - 2.5 mg/dL | [facility] | | | [facility] | | | LABORATORY | | | | | | CLAIRE, | | | | | | CORE | | + +-------+ + + + + + | Specimen | + + | Blood - Blood | | (substance) | + + + + + + + | Performing | Address | City/State/Zipcode | Phone Number | | Organization | | | | + + + + + | [facility] | [address] | [place] [address] | | | LYDIA RANGEL | [address] | | | + + + + + BASIC METABOLIC SET (NA, K, CL, TCO2, BUN, CR, GLU, CA) (11/10/2015 4:05 AM PDT) + +---------+ + + + | Component | Value | Ref Range | Performed | Pathologist | | | | | At | Signature | + +---------+ + + + | GLUCOSE, | 131 (H) | 60 - 99 mg/dL | [facility] | | | PLASMA | | | LABORATORY | | | (LAB) | | | SERVICES, | | | | | | CORE | | + +---------+ + + + | BUN, PLASMA | 15 | 6 - 20 mg/dL | [facility] | | | (LAB) | | | LABORATORY | | | | | | SERVICES, | | | | | | CORE | | + +---------+ + + + | CREATININE | 0.83 | 0.60 - 1.10 | [facility] | | | PLASMA | | mg/dL | LABORATORY | | | (LAB) | | | SERVICES, | | | | | | CORE | | + +---------+ + + + | EGFR | >60 | >60 mL/min | [facility] | | | - | | | LABORATORY | | | [place] | | | SERVICES, | | | | | | CORE | | + +---------+ + + + | EGFR NON | >60 | >60 mL/min | [facility] | | | -[facility] | | | LABORATORY | | | [facility] | | | SERVICES, | | | | | | CORE | | + +---------+ + + + | SODIUM, | 141 | 136 - 145 | [facility] | | | PLASMA | | mmol/L | LABORATORY | | | (LAB) | | | SERVICES, | | | | | | CORE | | + +---------+ + + + | POTASSIUM, | 3.6 | 3.4 - 5.0 | [facility] | | | PLASMA | | mmol/L | LABORATORY | | | (LAB) | | | SERVICES, | | | | | | CORE | | + +---------+ + + + | CHLORIDE, | 109 (H) | 97 - 108 mmol/L | [facility] | | | PLASMA | | | LABORATORY | | | (LAB) | | | SERVICES, | | | | | | CORE | | + +---------+ + + + | TOTAL CO2, | 24 | 21 - 32 mmol/L | [facility] | | | PLASMA | | | LABORATORY | | | (LAB) | | | SERVICES, | | | | | | CORE | | + +---------+ + + + | CALCIUM, | 8.4 (L) | 8.6 - 10.2 | [facility] | | | PLASMA | | mg/dL | LABORATORY | | | (LAB) | | | SERVICES, | | | | | | CORE | | + +---------+ + + + | ANION GAP | 8 | mmol/L | [facility] | | | [...] | + + + + + | [facility] | [address] | [place] [address] | | | SERVICES, CORE | [address] | | | + + + + + IRON AND TIBC (11/10/2015 4:05 AM PDT) + +--------+ + + + | Component | Value | Ref Range | Performed | Pathologist | | | | | At | Signature | + +--------+ + + + | IRON | 37 | 30 - 160 ug/dL | [facility] | | | | | | LABORATORY | | | | | | SERVICES, | | | | | | CORE | | + +--------+ + + + | IRON BIND | 323 | 240 - 450 ug/dL | [facility] | | | CAP | | | LABORATORY | | | | | | SERVICES, | | | | | | CORE | | + +--------+ + + + | % | 11 (L) | 20 - 50 % | [facility] | | | SATURATION | | | LABORATORY | | | TRANSFERRIN | | | SERVICES, | | | , | | | CORE | | + +--------+ + + + + + | Specimen | + + | Blood - Blood | | (substance) | + + + + + + + | Performing | Address | City/State/Zipcode | Phone Number | | Organization | | | | + + + + + | [facility] | [address] | [place] [address] | | | SERVICES, CORE | [address] | | | + + + + + FERRITIN (11/10/2015 4:05 AM PDT) + + + + + + | Component | Value | Ref Range | Performed | Pathologist | | | | | At | Signature | + + + + + + | FERRITIN | 18 (L)Comment: Male and | 50 - 200 [...] | + + + + + | [facility] | [address] | [place] [address] | | | CLAIRE, LYDIA | [address] | | | + + + + + CAPILLARY BLOOD GLUCOSE (NO CHG), POC (11/09/2015 10:43 PM PDT) + +---------+ + + + | Component | Value | Ref Range | Performed | Pathologist | | | | | At | Signature | + +---------+ + + + | BLOOD | 166 (H) | 60 - 99 mg/dL | [facility] - | | | GLUCOSE, | [...] + | [facility] | [address] | [place], [place] | | | [facility] | [facility] | [address] | | | TESTS | | | | + + + + + CAPILLARY BLOOD GLUCOSE (NO CHG), POC (11/09/2015 7:51 PM PDT) + +---------+ + + + [...] | [facility] | [address] | [place], [place] | | | [facility] | [address] | [address] | | | TESTS | | | | + + + + + X-RAY PORTABLE CHEST PICC LINE CHECK (11/09/2015 3:12 PM PDT) + + + + + + | Component | Value | Ref Range | Performed | Pathologist | | | | | At | Signature | + + + + + + | XRAY | EXAM: NH CHEST PICC LINE | | | | | PORTABLE | CHECK 11/09/15 15:12:00 | | | | | CHEST PICC | HISTORY: PICC | | | | | LINE CHECK | COMPARISON: 11/06/15 | | | | | | FINDINGS: Right PICC has | | | | | | its tip involving the | | | | | | cavoatrial junction. | | | | | | There is nopneumothorax. | | | | | | Cardiac silhouette is | | | | | | borderline in size. | | | | | | There is no | | | | | | pulmonaryedema or | | | | | | pleural effusion. | | | | | | Osseous structures are | | | | | | unremarkable. | | | | | | IMPRESSION: Clear lungs, | | | | | | right PICC placed into | | | | | | the cavoatrial junction. | | | | | | Attending Radiologists: | | | | | | TONY PRESCOTT, | | | | | | MDAuthor: TONY Shine | | | | | | MD KENYON I | | | | | | personally reviewed the | | | | | | images and, if | | | | | | necessary, edited the | | | | | | report. I agreewith the | | | | | | report as now presented. | | | | | | | | | | | | Final/Electronically | | | | | | rylie / TONY Shine | | | | | | KENYON 11/09/2015 | | | | | | 15:25 PM | | | | + + + + + + + + | Specimen | + + | | + + + +---------+ + + | Performing | Address | City/State/Zipcode | Phone Number | | Organization | | | | + +---------+ + + | [facility] DEPARTMENT OF | | | | | RADIOLOGY | | | | + +---------+ + + PROCEDURE NOTE (11/09/2015 3:03 PM PDT) + + + | Narrative | Performed At | + + + | Sulema Cedeño RN 11/09/2015 3:03 PM Patients admitted | | | diagnosis: L03.116 Cellulitis of left lower extremity R60.1 | | | Anasarca A41.9 Sepsis, due to unspecified organism (HCC) I50.9 Heart | | | failure, unspecified (HCC) I82.402 DVT (deep venous thrombosis), | | | left (HCC) PICC/Midline Insertion Procedure Note | | | Indications:Frequent lab draws and Administration IV fluids and meds | | | Procedure location: Unit:[facility] Room: 13 Providers: PICC Nurse | | | name: Sulema Cedeño RN VAT Assisted by Gilda Pringle RN VAT | | | Pre-Procedure Consent: written consent obtained Consent given by: | | | Patient Patient identity confirmed per protocol: Yes Team Pause: | | | Immediatly prior to the procedure a pause per protocol was called. A | | | pause verifies correct patient, procedure, equipment, academic support assistant | | | and site/side marked as required. CLABSI Prevention Bundle: | | | Skin preparation: Chloraprep Protective barrier: Cap, Mask, | | | Hand scrub, Gown, Gloves and Full body drape. Cap and mask worn by | | | assistive personnel.Sterile Ultrasound techniques (sterile gel, and | | | sterile probe cover) used Dressing: | | | Dressing applied prior of removal of full barrier drape and | | | hemostatic agent applied Monitoring The patients vital signs were | | | monitored by EKG, SaO2 and NIBP during the procedure. For details | | | see EMR. Procedure Details Patient was placed in appropriate | | | position The vascular anatomy was identified by Ultrasound | | | Guidance.wire through the needle, introducer over the wire, then | | | catheter through the introducer Tip was placed using TLS (Tip | | | Locating System) and TPS (Tip Positioning System). . A | | | non-tunneled PICC Double lumen 5 Fr was placed in the Right Arm | | | area Cephalic vein. Catheter lot number: [id number] with a length of | | | 55 cm was selected and trimmed 0 cm to a remaining length of 55 | | | cm All ports aspirated for blood and flushed with saline | | | Power-injectable line: yes Attempts 1 attempt(s) were made | | | Complications None PICC catheter tip location Chest radiograph | | | ordered to verify placement Adjustments made after chest film | | | obtained: none External measurement of catheter exposed: 10cm cm. | | | PICC catheter tip location: Cavo-Atrial Junction Estimated blood | | | loss: <10mL | | + + + CAPILLARY BLOOD GLUCOSE (NO CHG), POC (11/09/2015 3:03 PM PDT) + +-------+ + + + | Component | Value | Ref Range | Performed | Pathologist | | | | | At | Signature | + +-------+ + + + | BLOOD | 88 | 60 - 99 mg/dL | [facility] [...] + | [facility] | [address] | [place], [place] | | | [facility] | [address] | [address] | | | TESTS | | | | + + + + + POTASSIUM, PLASMA (11/09/2015 2:01 PM PDT) + +---------+ + + + | Component | Value | Ref Range | Performed | Pathologist | | | | | At | Signature | + +---------+ + + + | POTASSIUM, | 3.8 | 3.4 - 5.0 | [facility] | [...] | + + + + + | [facility] | [address] | [place] [address] | | | SERVICES, CORE | [address] | | | + + + + + CAPILLARY BLOOD GLUCOSE (NO CHG), POC (11/09/2015 9:31 AM PDT) + +---------+ + + + | Component | Value | Ref Range | Performed | Pathologist | | | | | At | Signature | + +---------+ + + + | BLOOD | 122 (H) | 60 - 99 mg/dL | [facility] - | | | GLUCOSE, | [...] + | [facility] | [address] | [place], [place] | | | [facility] | [address] | [address] | | | TESTS | | | | + + + + + HEPARIN, EITHER STANDARD / LMW, BLOOD (11/09/2015 6:19 AM PDT) + +-------+ + + + | Component | Value | Ref Range | Performed | Pathologist | | | | | At | Signature | + +-------+ + + + | HEPARIN, | 0.45 | U/mL | [facility] | | | STD LMW | | | LABORATORY | | | | | | SERVICES, | | | | | | CORE | | + +-------+ + + + + + | Specimen | + + | Blood - Blood | | (substance) | + + + + + | Narrative | Performed At | + + + | Venous Disease Heparin Protocol Heparin level 6 hrs after every | [facility] | | heparin rate change; If heparin level within target range for 2 | LABORATORY | | consecutive results, recheck every AM Heparin, Either STD/LMW - | SERVICES, CORE | | Therapeutic Ranges: Heparin, Unfractionated: 0.35 - 0.70 U/mL | | | Enoxaparin, LMWH: 0.70 - 1.20 U/mL Dalteparin, LMWH: | | | 0.70 - 1.20 U/mL Tinzaparin, LMWH: Therapeutic | | | range not established. | | | Preliminary studies suggest range | | | similar to dalteparin. Clinical | | | correlation required. Heparin levels may be unreliable for: | | | Total bilirubin >28.8 mg/dL | | | Triglycerides >690 mg/dL | | | or Moderate to Gross Hemolysis | | + + + + + + + + | Performing | Address | City/State/Zipcode | Phone Number | | Organization | | | | + + + + + | [facility] | [address] | [place] [address] | | | SERVICES, LYDIA | [address] | | | + + + + + INR (11/09/2015 6:19 AM PDT) + +-------+ + + + | Component | Value | Ref Range | Performed | Pathologist | | | | | At | Signature | + +-------+ + + + | INR | 1.20 | 0.90 - 1.20 INR | [facility] [...] Performed At | + + + | Venous Disease Heparin Protocol Heparin level 6 hrs after every | [facility] | | heparin rate change; If heparin level within target range for 2 | LABORATORY | | consecutive results, recheck every AM INR Therapeutic ranges for | SERVICES, CORE | | full anticoagulation: INR for Venous Thromboembolism | | | (2.0 - 3.0) INR INR for most patients with mech. valves (2.5 | | | - 3.5) INR | | + + + + + + + + | Performing | Address | City/State/Zipcode | Phone Number | | Organization | | | | + + + + + | [facility] | [address] | [place] [address] | | | LYDIA RANGEL | [address] | | | + + + + + MAGNESIUM, PLASMA (11/09/2015 6:18 AM PDT) + +-------+ + + + | Component | Value | Ref Range | Performed | Pathologist | | | | | At | Signature | + +-------+ + + + | MAGNESIUM,P | 2.3 | 1.8 - 2.5 mg/dL | [facility] | | | LASMA | | | LABORATORY | | | [...] + | [facility] | [address] | [place] [address] | | | SERVICES, CORE | [address] | | | + + + + + BASIC METABOLIC SET (NA, K, CL, TCO2, BUN, CR, GLU, CA) (11/09/2015 6:18 AM PDT) + +---------+ + + + | Component | Value | Ref Range | Performed | Pathologist | | | | | At | Signature | + +---------+ + + + | GLUCOSE, | 121 (H) | 60 - 99 mg/dL | [facility] | | | PLASMA | | | LABORATORY | | | (LAB) | | | SERVICES, | | | | | | CORE | | + +---------+ + + + | BUN, PLASMA | 14 | 6 - 20 mg/dL | [facility] | | | (LAB) | | | LABORATORY | | | | | | SERVICES, | | | | | | CORE | | + +---------+ + + + | CREATININE | 0.84 | 0.60 - 1.10 | [facility] | | | PLASMA | | mg/dL | LABORATORY | | | (LAB) | | | SERVICES, | | | | | | CORE | | + +---------+ + + + | EGFR | >60 | >60 mL/min | [facility] | | | - | | | LABORATORY | | | [facility] | | | SERVICES, | | | | | | CORE | | + +---------+ + + + | EGFR NON | >60 | >60 mL/min | [facility] | | | -RAJNI | | | LABORATORY | | | [facility] | | | SERVICES, | | | | | | CORE | | + +---------+ + + + | SODIUM, | 142 | 136 - 145 | [facility] | | | PLASMA | | mmol/L | LABORATORY | | | (LAB) | | | SERVICES, | | | | | | CORE | | + +---------+ + + + | POTASSIUM, | 3.7 | 3.4 - 5.0 | [facility] | | | PLASMA | | mmol/L | LABORATORY | | | (LAB) | | | SERVICES, | | | | | | CORE | | + +---------+ + + + | CHLORIDE, | 111 (H) | 97 - 108 mmol/L | [facility] | | | PLASMA | | | LABORATORY | | | (LAB) | | | SERVICES, | | | | | | CORE | | + +---------+ + + + | TOTAL CO2, | 24 | 21 - 32 mmol/L | [facility] | | | PLASMA | | | LABORATORY | | | (LAB) | | | SERVICES, | | | | | | CORE | | + +---------+ + + + | CALCIUM, | 8.2 (L) | 8.6 - 10.2 | [facility] | | | PLASMA | | mg/dL | LABORATORY | | | (LAB) | | | SERVICES, | | | | | | CORE | | + +---------+ + + + | ANION GAP | 7 | mmol/L | [facility] | | | [...] the MDRD equation recommended by the | [facility] | | National Kidney Disease Education Program. Estimated GFR | LABORATORY | | Interpretive Information: <60 mL/min/1.73 sq m | LYDIA RANGEL | | Chronic Kidney Disease <15 mL/min/1.73 [...] | + + + + + | [facility] | [address] | [place] [address] | | | LYDIA RANGEL | [address] | | | + + + + + CAPILLARY BLOOD GLUCOSE (NO CHG), POC (11/08/2015 11:03 PM PDT) + +---------+ + + + | Component | Value | Ref Range | Performed | Pathologist | | | | | At | Signature | + +---------+ + + + | BLOOD | 158 (H) | 60 - 99 mg/dL | [...] | [facility] | [address] | [place], [place] | | | [facility] | [address] | [address] | | | TESTS | | | | + + + + + CAPILLARY BLOOD GLUCOSE (NO CHG), POC (11/08/2015 7:08 PM PDT) + +---------+ + + + | Component | Value | Ref Range | Performed | Pathologist | | | | | At | Signature | + +---------+ + + + | BLOOD | 144 (H) | 60 - 99 mg/dL | [...] + | [facility] | [address] | [place], [place] | | | [facility] | [address] | [address] | | | TESTS | | | | + + + + + HCG QUAL, URINE (11/08/2015 7:02 PM PDT) + + + + + + | Component | Value | Ref Range | Performed | Pathologist | | | | | At | Signature | + + + + + + | HCG QUAL | NegativeComment: HCG= | mIU/mL | [facility] | | | URINE | <20mIU/mL. | | LABORATORY | | | | | | SERVICES, | | | | | | CORE | | + + + + + + + + | Specimen | + + | Urine - Urine | | (substance) | + + + + + + + | Performing | Address | City/State/Zipcode | Phone Number | | Organization | | | | + + + + + | [facility] | [address] | [place] [address] | | | SERVICES, CORE | [address] | | | + + + + + POTASSIUM, PLASMA (11/08/2015 5:02 PM PDT) + +---------+ + + + | Component | Value | Ref Range | Performed | Pathologist | | | | | At | Signature | + +---------+ + + + | POTASSIUM, | 3.7 [...] | + + + + + | [facility] | [address] | [place] [address] | | | SERVICES, CORE | [address] | | | + + + + + HEPARIN, EITHER STANDARD / LMW, BLOOD (11/08/2015 2:56 PM PDT) + +-------+ + + + | Component | Value | Ref Range | Performed | Pathologist | | | | | At | Signature | + +-------+ + + + | HEPARIN, | 0.35 | U/mL | [facility] | | | STD LMW | | | LABORATORY | | | | | | SERVICES, | | | | | | CORE | | + +-------+ + + + + + | Specimen | + + | Blood - Blood | | (substance) | + + + + + | Narrative | Performed At | + + + | Venous Disease Heparin Protocol Heparin level 6 hrs after every | [facility] | | heparin rate change; If heparin level within target range for 2 | LABORATORY | | consecutive results, recheck every AM Heparin, Either STD/LMW - | SERVICES, CORE | | Therapeutic Ranges: Heparin, Unfractionated: 0.35 - 0.70 U/mL | | | Enoxaparin, LMWH: 0.70 - 1.20 U/mL Dalteparin, LMWH: | | | 0.70 - 1.20 U/mL Tinzaparin, LMWH: Therapeutic | | | range not established. | | | Preliminary studies suggest range | | | similar to dalteparin. Clinical | | | correlation required. Heparin levels may be unreliable for: | | | Total bilirubin >28.8 mg/dL | | | Triglycerides >690 mg/dL | | | or Moderate to Gross Hemolysis | | + + + + + + + + | Performing | Address | City/State/Zipcode | Phone Number | | Organization | | | | + + + + + | [facility] | [address] | [place] [address] | | | SERVICES, LYDIA | [address] | | | + + + + + CAPILLARY BLOOD GLUCOSE (NO CHG), POC (11/08/2015 1:00 PM PDT) + +---------+ + + + [...] + + | [facility] | [address] | [place], [place] | | | [facility] | [facility] | [address] | | | TESTS | | | | + + + + + CAPILLARY BLOOD GLUCOSE (NO CHG), POC (11/08/2015 10:07 AM PDT) + +---------+ + + + | Component | Value | Ref Range | Performed | Pathologist | | | | | At | Signature | + +---------+ + + + | BLOOD | 136 (H) | 60 - 99 mg/dL | [...] | [facility] | [address] | [place], [place] | | | [facility] | [address] | [address] | | | TESTS | | | | + + + + + CAPILLARY BLOOD GLUCOSE (NO CHG), POC (11/08/2015 8:54 AM PDT) + +---------+ + + + | Component | Value | Ref Range | Performed | Pathologist | | | | | At | Signature | + +---------+ + + + | BLOOD | 139 (H) | 60 - 99 mg/dL | [...] + | [facility] | [address] | [place], [place] | | | [facility] | [facility] | [address] | | | TESTS | | | | + + + + + HEPARIN, EITHER STANDARD / LMW, BLOOD (11/08/2015 8:16 AM PDT) + +-------+ + + + | Component | Value | Ref Range | Performed | Pathologist | | | | | At | Signature | + +-------+ + + + | HEPARIN, | 0.60 | U/mL | [facility] | | | STD LMW | | | LABORATORY | | | | | | SERVICES, | | | | | | CORE | | + +-------+ + + + + + | Specimen | + + | Blood - Blood | | (substance) | + + + + + | Narrative | Performed At | + + + | Venous Disease Heparin Protocol Heparin level 6 hrs after every | [facility] | | heparin rate change; If heparin level within target range for 2 | LABORATORY | | consecutive results, recheck every AM Heparin, Either STD/LMW - | SERVICES, CORE | | Therapeutic Ranges: Heparin, Unfractionated: 0.35 - 0.70 U/mL | | | Enoxaparin, LMWH: 0.70 - 1.20 U/mL Dalteparin, LMWH: | | | 0.70 - 1.20 U/mL Tinzaparin, LMWH: Therapeutic | | | range not established. | | | Preliminary studies suggest range | | | similar to dalteparin. Clinical | | | correlation required. Heparin levels may be unreliable for: | | | Total bilirubin >28.8 mg/dL | | | Triglycerides >690 mg/dL | | | or Moderate to Gross Hemolysis | | + + + + + + + + | Performing | Address | City/State/Zipcode | Phone Number | | Organization | | | | + + + + + | [facility] | [address] | [place] [address] | | | SERVICES, CORE | [address] | | | + + + + + HEPARIN, EITHER STANDARD / LMW, BLOOD (11/08/2015 6:27 AM PDT) + +-------+ + + + | Component | Value | Ref Range | Performed | Pathologist | | | | | At | Signature | + +-------+ + + + | HEPARIN, | 0.55 | U/mL | [facility] | | | STD LMW | | | LABORATORY | | | | | | SERVICES, | | | | | | CORE | | + +-------+ + + + + + | Specimen | + + | Blood - Blood | | (substance) | + + + + + | Narrative | Performed At | + + + | Heparin, Either STD/LMW - Therapeutic Ranges: Heparin, | [facility] | | Unfractionated: 0.35 - 0.70 U/mL Enoxaparin, LMWH: 0.70 | LABORATORY | | - 1.20 U/mL Dalteparin, LMWH: 0.70 - 1.20 U/mL | SERVICES, CORE | | Tinzaparin, LMWH: Therapeutic range not established. | | | Preliminary studies suggest range | | | similar to dalteparin. Clinical | | | correlation required. | | | Heparin levels may be unreliable for: | | | Total bilirubin >28.8 mg/dL | | | Triglycerides >690 mg/dL | | | or Moderate to Gross Hemolysis | | + + + + + + + + | Performing | Address | City/State/Zipcode | Phone Number | | Organization | | | | + + + + + | [facility] | [address] | [place] [address] | | | SERVICES, CORE | [address] | | | + + + + + CBC (HEMOGRAM) ONLY (11/08/2015 6:27 AM PDT) + + + + + + | Component | Value | Ref Range | Performed | Pathologist | | | | | At | Signature | + + + + + + | WHITE CELL | 10.12 | 4.40 - 11.00 | [facility] | | | COUNT | | K/cu mm | LABORATORY | | | | | | SERVICES, | | | | | | CORE | | + + + + + + | RED CELL | 3.92 (L) | 4.00 - 5.20 | [facility] | | | COUNT | | M/cu mm | LABORATORY | | | | | | SERVICES, | | | | | | CORE | | + + + + + + | HEMOGLOBIN | 9.3 (L) | 12.0 - 16.0 | [facility] | | | | | g/dL | LABORATORY | | | | | | SERVICES, | | | | | | CORE | | + + + + + + | HEMATOCRIT | 31.6 (L) | 36.0 - 46.0 % | [facility] | | | | | | LABORATORY | | | | | | SERVICES, | | | | | | CORE | | + + + + + + | MCV | 80.6 | 80.0 - 96.0 fL | [facility] | | | | | | LABORATORY | | | | | | SERVICES, | | | | | | CORE | | + + + + + + | MCHC | 29.4 | 33.0 - 35.5 | [facility] | | | | | g/dL | LABORATORY | | | | | | SERVICES, | | | | | | CORE | | + + + + + + | RDW SD | 50.4 (H) | 35.1 - 46.3 fL | [facility] | | | | | | LABORATORY | | | | | | SERVICES, | | | | | | CORE | | + + + + + + | PLATELET | 243 | 150 - 400 K/cu | [facility] | | | COUNT | | mm | LABORATORY | | | | | | SERVICES, | | | | | | CORE | | + + + + + + | MPV | 9.4 (L) | 9.7 - 12.3 fL | [...] | + + + + + | [facility] | [address] | [place] [address] | | | SERVICES, CORE | [address] | | | + + + + + INR (11/08/2015 6:27 AM PDT) + +-------+ + + + | Component | Value | Ref Range | Performed | Pathologist | | | | | At | Signature | + +-------+ + + + | INR | 1.20 | 0.90 - 1.20 INR | [facility] [...] Therapeutic ranges for full anticoagulation: INR for | [facility] | | Venous Thromboembolism (2.0 - 3.0) INR INR for | LABORATORY | | most patients with mech. valves (2.5 - 3.5) INR | [facility] | + + + + + + + + | Performing | Address | City/State/Zipcode | Phone Number | | Organization | | | | + + + + + | [facility] | [address] | [place] [address] | | | SERVICES, LYDIA | [address] | | | + + + + + MAGNESIUM, PLASMA (11/08/2015 6:27 AM PDT) + +-------+ + + + | Component | Value | Ref Range | Performed | Pathologist | | | | | At | Signature | + +-------+ + + + | MAGNESIUM,P | 2.1 | 1.8 - 2.5 mg/dL | [facility] | | | LASMA | | | LABORATORY | | | [...] | + + + + + | [facility] | [address] | [place] [address] | | | SERVICES, CORE | [address] | | | + + + + + BASIC METABOLIC SET (NA, K, CL, TCO2, BUN, CR, GLU, CA) (11/08/2015 6:27 AM PDT) + +---------+ + + + | Component | Value | Ref Range | Performed | Pathologist | | | | | At | Signature | + +---------+ + + + | GLUCOSE, | 145 (H) | 60 - 99 mg/dL | [facility] | | | PLASMA | | | LABORATORY | | | (LAB) | | | SERVICES, | | | | | | CORE | | + +---------+ + + + | BUN, PLASMA | 14 | 6 - 20 mg/dL | [facility] | | | (LAB) | | | LABORATORY | | | | | | SERVICES, | | | | | | CORE | | + +---------+ + + + | CREATININE | 0.83 | 0.60 - 1.10 | [facility] | | | PLASMA | | mg/dL | LABORATORY | | | (LAB) | | | SERVICES, | | | | | | CORE | | + +---------+ + + + | EGFR | >60 | >60 mL/min | [facility] | | | - | | | LABORATORY | | | [place] | | | SERVICES, | | | | | | CORE | | + +---------+ + + + | EGFR NON | >60 | >60 mL/min | [facility] | | | -[facility] | | | LABORATORY | | | [facility] | | | SERVICES, | | | | | | CORE | | + +---------+ + + + | SODIUM, | 141 | 136 - 145 | [facility] | | | PLASMA | | mmol/L | LABORATORY | | | (LAB) | | | SERVICES, | | | | | | CORE | | + +---------+ + + + | POTASSIUM, | 4.0 | 3.4 - 5.0 | [facility] | | | PLASMA | | mmol/L | LABORATORY | | | (LAB) | | | SERVICES, | | | | | | CORE | | + +---------+ + + + | CHLORIDE, | 112 (H) | 97 - 108 mmol/L | [facility] | | | PLASMA | | | LABORATORY | | | (LAB) | | | SERVICES, | | | | | | CORE | | + +---------+ + + + | TOTAL CO2, | 20 (L) | 21 - 32 mmol/L | [facility] | | | PLASMA | | | LABORATORY | | | (LAB) | | | SERVICES, | | | | | | CORE | | + +---------+ + + + | CALCIUM, | 8.5 (L) | 8.6 - 10.2 | [facility] | | | PLASMA | | mg/dL | LABORATORY | | | (LAB) | | | SERVICES, | | | | | | CORE | | + +---------+ + + + | ANION GAP | 9 | mmol/L | [facility] | | | [...] Interpretive Information: <60 mL/min/1.73 sq m | [facility] | | Chronic Kidney Disease <15 mL/min/1.73 [...] | + + + + + | [facility] | [address] | [place] [address] | | | [facility] | [address] | | | + + + + + HEPARIN, EITHER STANDARD / LMW, BLOOD (11/08/2015 12:41 AM PDT) + +-------+ + + + | Component | Value | Ref Range | Performed | Pathologist | | | | | At | Signature | + +-------+ + + + | HEPARIN, | 0.16 | U/mL | [facility] | | | STD LMW | | | LABORATORY | | | | | | SERVICES, | | | | | | CORE | | + +-------+ + + + + + | Specimen | + + | Blood - Blood | | (substance) | + + + + + | Narrative | Performed At | + + + | Venous Disease Heparin Protocol Heparin level 6 hrs after every | [facility] | | heparin rate change; If heparin level within target range for 2 | LABORATORY | | consecutive results, recheck every AM Heparin, Either STD/LMW - | SERVICES, CORE | | Therapeutic Ranges: Heparin, Unfractionated: 0.35 - 0.70 U/mL | | | Enoxaparin, LMWH: 0.70 - 1.20 U/mL Dalteparin, LMWH: | | | 0.70 - 1.20 U/mL Tinzaparin, LMWH: Therapeutic | | | range not established. | | | Preliminary studies suggest range | | | similar to dalteparin. Clinical | | | correlation required. Heparin levels may be unreliable for: | | | Total bilirubin >28.8 mg/dL | | | Triglycerides >690 mg/dL | | | or Moderate to Gross Hemolysis | | + + + + + + + + | Performing | Address | City/State/Zipcode | Phone Number | | Organization | | | | + + + + + | [facility] | [address] | [place] [address] | | | LYDIA RANGEL | [address] | | | + + + + + CAPILLARY BLOOD GLUCOSE (NO CHG), POC (11/07/2015 9:43 PM PDT) + +---------+ + + + | Component | Value | Ref Range | Performed | Pathologist | | | | | At | Signature | + +---------+ + + + | BLOOD | 141 (H) | 60 - 99 mg/dL | [facility] - | | | GLUCOSE, | [...] | [facility] | [address] | [place], [place] | | | [facility] | [address] | [address] | | | TESTS | | | | + + + + + HEPARIN, EITHER STANDARD / LMW, BLOOD (11/07/2015 6:00 PM PDT) + +-------+ + + + | Component | Value | Ref Range | Performed | Pathologist | | | | | At | Signature | + +-------+ + + + | HEPARIN, | 0.29 | U/mL | [facility] | | | STD LMW | | | LABORATORY | | | | | | SERVICES, | | | | | | CORE | | + +-------+ + + + + + | Specimen | + + | Blood - Blood | | (substance) | + + + + + | Narrative | Performed At | + + + | Venous Disease Heparin Protocol Heparin level 6 hrs after every | [facility] | | heparin rate change; If heparin level within target range for 2 | LABORATORY | | consecutive results, recheck every AM Heparin, Either STD/LMW - | SERVICES, CORE | | Therapeutic Ranges: Heparin, Unfractionated: 0.35 - 0.70 U/mL | | | Enoxaparin, LMWH: 0.70 - 1.20 U/mL Dalteparin, LMWH: | | | 0.70 - 1.20 U/mL Tinzaparin, LMWH: Therapeutic | | | range not established. | | | Preliminary studies suggest range | | | similar to dalteparin. Clinical | | | correlation required. Heparin levels may be unreliable for: | | | Total bilirubin >28.8 mg/dL | | | Triglycerides >690 mg/dL | | | or Moderate to Gross Hemolysis | | + + + + + + + + | Performing | Address | City/State/Zipcode | Phone Number | | Organization | | | | + + + + + | [facility] | [address] | [place] [address] | | | SERVICES, CORE | [address] | | | + + + + + CAPILLARY BLOOD GLUCOSE (NO CHG), POC (11/07/2015 5:31 PM PDT) + +---------+ + + + | Component | Value | Ref Range | Performed | Pathologist | | | | | At | Signature | + +---------+ + + + | BLOOD | 126 (H) | 60 - 99 mg/dL | [...] | [facility] | [address] | [place], [place] | | | [facility] | [address] | [address] | | | TESTS | | | | + + + + + CAPILLARY BLOOD GLUCOSE (NO CHG), POC (11/07/2015 3:50 PM PDT) + +---------+ + + + | Component | Value | Ref Range | Performed | Pathologist | | | | | At | Signature | + +---------+ + + + | BLOOD | 128 (H) | 60 - 99 mg/dL | [...] | + + + + + | [facility] | [address] | [place], [place] | | | [facility] | [address] | [address] | | | TESTS | | | | + + + + + TRANSTHORACIC ECHOCARDIOGRAM, ADULT (11/07/2015 1:28 PM PDT) + + + + + + | Component | Value | Ref Range | Performed | Pathologist | | | | | At | Signature | + + + + + + | EJECTION | 60 to 65 | | [facility] | | | FRACTION | | | OF | | | | | | CARDIOLOGY | | + + + + + + | LA | 3.5 | | [facility] | | | DIMENSION | | | OF | | | | | | CARDIOLOGY | | + + + + + + | LVIDD | 4.6 | | [facility] | | | | | | OF | | | | | | CARDIOLOGY | | + + + + + + | MV A VMAX | 1.3 | | [facility] | | | | | | OF | | | | | | CARDIOLOGY | | + + + + + + | MV E VMAX | 1.1 | | [facility] | | | | | | OF | | | | | | CARDIOLOGY | | + + + + + + | RVSP | 28 | | [facility] | | | | | | OF | | | | | | CARDIOLOGY | | + + + + + + | RV TDI S? | 9.0 | | [facility] | | | | | | OF | | | | | | CARDIOLOGY | | + + + + + + | EJECTION | 62.5 | % | [facility] | | | FRACTION | | | OF | | | RANGE MEAN | | | CARDIOLOGY | | | VALUE | | | | | + + [...] + | [facility] | [address] | [place], [place] | | | CARDIOLOGY | [address] | [address] | | + + + + + CAPILLARY BLOOD GLUCOSE (NO CHG), POC (11/07/2015 12:26 PM PDT) + +---------+ + + + | Component | Value | Ref Range | Performed | Pathologist | | | | | At | Signature | + +---------+ + + + | BLOOD | 164 (H) | 60 - 99 mg/dL | [...] + | [facility] | [address] | [place], [place] | | | [facility] | [address] | [address] | | | TESTS | | | | + + + + + BASIC METABOLIC SET (NA, K, CL, TCO2, BUN, CR, GLU, CA) (11/07/2015 11:49 AM PDT) + +---------+ + + + | Component | Value | Ref Range | Performed | Pathologist | | | | | At | Signature | + +---------+ + + + | GLUCOSE, | 154 (H) | 60 - 99 mg/dL | [facility] | | | PLASMA | | | LABORATORY | | | (LAB) | | | SERVICES, | | | | | | CORE | | + +---------+ + + + | BUN, PLASMA | 15 | 6 - 20 mg/dL | [facility] [...] | | | LABORATORY | | | [facility] | | | SERVICES, | | | | | | CORE | | + +---------+ + + + | EGFR NON | >60 | >60 mL/min | [facility] | | | -RAJNI | | | LABORATORY | | | RICAN | | | SERVICES, | | | | | | CORE | | + +---------+ + + + | SODIUM, | 142 | 136 - 145 | [facility] | | | PLASMA | | mmol/L | LABORATORY | | | (LAB) | | | SERVICES, | | | | | | CORE | | + +---------+ + + + | POTASSIUM, | 3.8 | 3.4 - 5.0 | [facility] | | | PLASMA | | mmol/L | LABORATORY | | | (LAB) | | | SERVICES, | | | | | | CORE | | + +---------+ + + + | CHLORIDE, | 109 (H) | 97 - 108 mmol/L | [facility] | | | PLASMA | | | LABORATORY | | | (LAB) | | | SERVICES, | | | | | | CORE | | + +---------+ + + + | TOTAL CO2, | 23 | 21 - 32 mmol/L | [facility] | | | PLASMA | | | LABORATORY | | | (LAB) | | | SERVICES, | | | | | | CORE | | + +---------+ + + + | CALCIUM, | 8.6 | 8.6 - 10.2 | [facility] | | | PLASMA | | mg/dL | LABORATORY | | | (LAB) | | | SERVICES, | | | | | | CORE | | + +---------+ + + + | ANION GAP | 10 | mmol/L | [facility] | | | [...] + | [facility] | [address] | [place] [address] | | | SERVICES, CORE | [address] | | | + + + + + INR (11/07/2015 10:36 AM PDT) + +-------+ + + + | Component | Value | Ref Range | Performed | Pathologist | | | | | At | Signature | + +-------+ + + + | INR | 1.14 | 0.90 - 1.20 INR | [facility] [...] Therapeutic ranges for full anticoagulation: INR for | [facility] | | Venous Thromboembolism (2.0 - 3.0) INR INR for | LABORATORY | | most patients with mech. valves (2.5 - 3.5) INR | SERVICES, CORE | + + + + + + + + | Performing | Address | City/State/Zipcode | Phone Number | | Organization | | | | + + + + + | [facility] | [address] | [place] [address] | | | SERVICES, CORE | [address] | | | + + + + + HEPARIN, EITHER STANDARD / LMW, BLOOD (11/07/2015 10:36 AM PDT) + +-------+ + + + | Component | Value | Ref Range | Performed | Pathologist | | | | | At | Signature | + +-------+ + + + | HEPARIN, | <0.10 | U/mL | [facility] | | | STD LMW | | | LABORATORY | | | | | | SERVICES, | | | | | | CORE | | + +-------+ + + + + + | Specimen | + + | Blood - Blood | | (substance) | + + + + + | Narrative | Performed At | + + + | Heparin, Either STD/LMW - Therapeutic Ranges: Heparin, | [facility] | | Unfractionated: 0.35 - 0.70 U/mL Enoxaparin, LMWH: 0.70 | LABORATORY | | - 1.20 U/mL Dalteparin, LMWH: 0.70 - 1.20 U/mL | SERVICES, CORE | | Tinzaparin, LMWH: Therapeutic range not established. | | | Preliminary studies suggest range | | | similar to dalteparin. Clinical | | | correlation required. | | | Heparin levels may be unreliable for: | | | Total bilirubin >28.8 mg/dL | | | Triglycerides >690 mg/dL | | | or Moderate to Gross Hemolysis | | + + + + + + + + | Performing | Address | City/State/Zipcode | Phone Number | | Organization | | | | + + + + + | [facility] | [address] | [place] [address] | | | SERVICES, CORE | [address] | | | + + + + + VASC LAB PORTABLE VENOUS DUPLEX LOWER EXTREMITY RIGHT (11/07/2015 10:05 AM PDT) + + + + + + | Component | Value | Ref Range | Performed | Pathologist | | | | | At | Signature | + + + + + + | VASC LAB | Right: The duplex | | | | | PORTABLE | scanner was used to | | | | | VENOUS | examine the deep and | | | | | DUPLEX | superficial veins ofthe | | | | | LOWER | right lower extremity. | | | | | EXTREMITY | The right lower | | | | | RIGHT | extremity veins are | | | | | | patent withnormal flows | | | | | | and responses to | | | | | | augmentation and | | | | | | compression maneuvers | | | | | | and nothrombus is noted. | | | | | | Conclusions: A normal | | | | | | venous examination of | | | | | | the right lower | | | | | | extremity. Novenous | | | | | | thrombosis was detected. | | | | | | Attending | | | | | | Radiologists: PRISCILLA | | | | | | ANTHONY FERRELLuthor: | | | | | | PRISCILLA FERRELL MD I | | | | | | have personally viewed | | | | | | this procedure/exam, | | | | | | reviewed this report, | | | | | | and madechanges to it | | | | | | where appropriate. | | | | | | Final/Electronically | | | | | | signed / PRISCILLA | | | | | | GHASSAN 11/07/2015 10:46 | | | | | | AM Preliminary / | | | | | | PRISCILLA GILMORE | | | | | | 11/07/2015 10:04 AM | | | | + + + + + + + + | Specimen | + + | | + + + +---------+ + + | Performing | Address | City/State/Zipcode | Phone Number | | Organization | | | | + +---------+ + + | [facility] | | | | | RADIOLOGY | | | | + +---------+ + + CAPILLARY BLOOD GLUCOSE (NO CHG), POC (11/07/2015 8:35 AM PDT) + +---------+ + + + | Component | Value | Ref Range | Performed | Pathologist | | | | | At | Signature | + +---------+ + + + | BLOOD | 145 (H) | 60 - 99 mg/dL | [...] + | [facility] | [address] | [place], [place] | | | [facility] | [address] | [address] | | | TESTS | | | | + + + + + URINE, MICROSCOPIC EXAM (11/07/2015 8:21 AM PDT) + +---------+ + + + | Component | Value | Ref Range | Performed | Pathologist | | | | | At | Signature | + +---------+ + + + | RED CELLS | 3 | 0 - 3 /hpf | [facility] | | | | | | LABORATORY | | | | | | SERVICES, | | | | | | CORE | | + +---------+ + + + | WHITE CELLS | 0 | 0 - 5 /hpf | [facility] | | | | | | LABORATORY | | | | | | SERVICES, | | | | | | CORE | | + +---------+ + + + | BACTERIA | None | None /hpf | [facility] | | | | | | LABORATORY | | | | | | SERVICES, | | | | | | CORE | | + +---------+ + + + | YEAST (LAB) | None | None /hpf | [facility] | | | | | | LABORATORY | | | | | | SERVICES, | | | | | | CORE | | + +---------+ + + + | SQUAMOUS | Few (A) | None /hpf | [facility] | | | EPITHELIAL | | | LABORATORY | | | | | | SERVICES, | | | | | | CORE | | + +---------+ + + + | MUCOUS | None | None /hpf | [facility] | | | | | | LABORATORY | | | | | | SERVICES, | | | | | | CORE | | + +---------+ + + + | TRICHOMONAS | None | None /hpf | [facility] | | | | | | LABORATORY | | | | | | SERVICES, | | | | | | CORE | | + +---------+ + + + | NON-SQUAMOU | Few (A) | None /hpf | [facility] | | | S EPITH | | | LABORATORY | | | | | | SERVICES, | | | | | | CORE | | + +---------+ + + + | HYALINE | 0 | 0 - 2 /lpf | [facility] | | | CASTS | | | LABORATORY | | | | | | SERVICES, | | | | | | CORE | | + +---------+ + + + | GRANULAR | 0 | 0 - 2 /lpf | [facility] | | | CASTS | | | LABORATORY | | | | | | SERVICES, | | | | | | CORE | | + +---------+ + + + | CELLULAR | 0 | <=0 /lpf | [facility] | | | CASTS | | | LABORATORY | | | | | | SERVICES, | | | | | | CORE | | + +---------+ + + + | TRIPLE P04 | None | None /hpf | [facility] | | | CRYSTALS | | | LABORATORY | | | | | | SERVICES, | | | | | | CORE | | + +---------+ + + + | CALCIUM | None | None /hpf | [facility] | | | OXALATE | | | LABORATORY | | | KATHE | | | SERVICES, | | | | | | CORE | | + +---------+ + + + | URIC ACID | None | None /hpf | [facility] | | | CRYSTALS | | | LABORATORY | | | | | | SERVICES, | | | | | | CORE | | + +---------+ + + + | AMORPHOUS | Few (A) | None /hpf | [facility] | | | CRYSTALS | | | LABORATORY | | | | | | SERVICES, | | | | | | CORE | | + +---------+ + + + + + | Specimen | + + | Urine - Urine | | (substance) | + + + + + + + | Performing | Address | City/State/Zipcode | Phone Number | | Organization | | | | + + + + + | [facility] | [address] | [place] [address] | | | SERVICES, CORE | [address] | | | + + + + + URINE SCREEN FOR CULTURE (11/07/2015 8:21 AM PDT) + + + + + + | Component | Value | Ref Range | Performed | Pathologist | | | | | At | Signature | + + + + + + | URINE | Positive (A) | Negative | [facility] | | | SCREEN FOR | | | LABORATORY | | | CULTURE | | | SERVICES, | | | | | | CORE | | + + + + + + + + | Specimen | + + | Urine - Urine | | (substance) | + + + + + | Narrative | Performed At | + + + | Culture Screen Positive, specimen sent for culture. | [facility] | | | LABORATORY | | | [address]ANG[address] | + + + + + + + + | Performing | Address | City/State/Zipcode | Phone Number | | Organization | | | | + + + + + | [facility] | [address] | [place] [address] | | | LYDIA RANGEL | [address] | | | + + + + + MADAY CEDILLO (11/07/2015 8:21 AM PDT) + + + + + [...] + + + + | APPEARANCE | Mod. Cloudy | | [facility] | | | | [...] + + + + | LEUKOCYTE | Trace (A) | Negative | [facility] | | | ESTERASE | | | LABORATORY | | | | | | SERVICES, | | | | | | CORE | | + + + + + + | SPECIFIC | 1.015 | 1.005 - 1.030 | [facility] | | | GRAVITY | | | LABORATORY | | | | | | SERVICES, | | | | | | CORE | | + + + + + + + + | Specimen | + + | Urine - Urine | | (substance) | + + + + + + + | Performing | Address | City/State/Zipcode | Phone Number | | Organization | | | | + + + + + | [facility] | [address] | [place] [address] | | | SERVICES, CORE | [address] | | | + + + + + CULTURE, URINE NKECHI (11/07/2015 8:21 AM PDT) + + + + + + | Component | Value | Ref Range | Performed | Pathologist | | | | | At | Signature | + + + + + + | URINE | Insignificant growth | | [facility] | | | CULTURE | (<10,000 cfu/mL) | | LABORATORY | | | [facility] | | | SERVICES, | | | | | | CORE | | + + + + + + + + | Specimen | + + | Urine - Urine | | (substance) | + + + + + + + | Performing | Address | City/State/Zipcode | Phone Number | | Organization | | | | + + + + + | [facility] | [address] | [place] [address] | | | CLAIRE, LYDIA | [address] | | | + + + + + CAPILLARY BLOOD GLUCOSE (NO CHG), POC (11/07/2015 6:29 AM PDT) + +---------+ + + + | Component | Value | Ref Range | Performed | Pathologist | | | | | At | Signature | + +---------+ + + + | BLOOD | 159 (H) | 60 - 99 mg/dL | [facility] - | | | GLUCOSE, | [...] | [facility] | [address] | [place], [place] | | | [facility] | [address] | [address] | | | TESTS | | | | + + + + + CBC (HEMOGRAM) ONLY (11/07/2015 4:56 AM PDT) + + + + + + | Component | Value | Ref Range | Performed | Pathologist | | | | | At | Signature | + + + + + + | WHITE CELL | 10.49 | 4.40 - 11.00 | [facility] | | | COUNT | | K/cu mm | LABORATORY | | | | | | SERVICES, | | | | | | CORE | | + + + + + + | RED CELL | 3.74 (L) | 4.00 - 5.20 | [facility] | | | COUNT | | M/cu mm | LABORATORY | | | | | | SERVICES, | | | | | | CORE | | + + + + + + | HEMOGLOBIN | 9.0 (L) | 12.0 - 16.0 | [facility] | | | | | g/dL | LABORATORY | | | | | | SERVICES, | | | | | | CORE | | + + + + + + | HEMATOCRIT | 30.1 (L) | 36.0 - 46.0 % | [facility] | | | | | | LABORATORY | | | | | | SERVICES, | | | | | | CORE | | + + + + + + | MCV | 80.5 | 80.0 - 96.0 fL | [facility] | | | | | | LABORATORY | | | | | | SERVICES, | | | | | | CORE | | + + + + + + | MCHC | 29.9 | 33.0 - 35.5 | [facility] | | | | | g/dL | LABORATORY | | | | | | SERVICES, | | | | | | CORE | | + + + + + + | RDW SD | 49.3 (H) | 35.1 - 46.3 fL | [facility] | | | | | | LABORATORY | | | | | | SERVICES, | | | | | | CORE | | + + + + + + | PLATELET | 255 | 150 - 400 K/cu | [facility] [...] | + + + + + | [facility] | [address] | [place] [address] | | | SERVICES, CORE | [address] | | | + + + + + TSH W/REFLEX TO FREE T4(IF ABNORMAL) (11/07/2015 3:17 AM PDT) + +-------+ + + + | Component | Value | Ref Range | Performed | Pathologist | | | | | At | Signature | + +-------+ + + + | TSH | 3.93 | 0.39 - 4.17 | [facility] | [...] | + + + + + | [facility] | [address] | [place] [address] | | | SERVICES, CORE | [address] | | | + + + + + MAGNESIUM, PLASMA (11/07/2015 3:17 AM PDT) + +-------+ + + + | Component | Value | Ref Range | Performed | Pathologist | | | | | At | Signature | + +-------+ + + + | MAGNESIUM,P | 1.9 | 1.8 - 2.5 mg/dL | [facility] | | | LASMA | | | LABORATORY | | | [...] | + + + + + | [facility] | [address] | [place] [address] | | | SERVICES, CORE | [address] | | | + + + + + BASIC METABOLIC SET (NA, K, CL, TCO2, BUN, CR, GLU, CA) (11/07/2015 3:17 AM PDT) + +---------+ + + + | Component | Value | Ref Range | Performed | Pathologist | | | | | At | Signature | + +---------+ + + + | GLUCOSE, | 147 (H) | 60 - 99 mg/dL | [facility] | | | PLASMA | | | LABORATORY | | | (LAB) | | | SERVICES, | | | | | | CORE | | + +---------+ + + + | BUN, PLASMA | 15 | 6 - 20 mg/dL | [facility] | | | (LAB) | | | LABORATORY | | | | | | SERVICES, | | | | | | CORE | | + +---------+ + + + | CREATININE | 0.91 | 0.60 - 1.10 | [facility] | | | PLASMA | | mg/dL | LABORATORY | | | (LAB) | | | SERVICES, | | | | | | CORE | | + +---------+ + + + | EGFR | >60 | >60 mL/min | [facility] | | | - | | | LABORATORY | | | [facility] | | | SERVICES, | | | | | | CORE | | + +---------+ + + + | EGFR NON | >60 | >60 mL/min | [facility] | | | -RAJNI | | | LABORATORY | | | RICAN | | | SERVICES, | | | | | | CORE | | + +---------+ + + + | SODIUM, | 142 | 136 - 145 | [facility] | | | PLASMA | | mmol/L | LABORATORY | | | (LAB) | | | SERVICES, | | | | | | CORE | | + +---------+ + + + | POTASSIUM, | 4.2 | 3.4 - 5.0 | [facility] | | | PLASMA | | mmol/L | LABORATORY | | | (LAB) | | | SERVICES, | | | | | | CORE | | + +---------+ + + + | CHLORIDE, | 114 (H) | 97 - 108 mmol/L | [...] +---------+ + + + | CALCIUM, | 8.7 | 8.6 - 10.2 | [facility] | | | PLASMA | | mg/dL | LABORATORY | | | (LAB) | | | SERVICES, | | | | | | CORE | | + +---------+ + + + | ANION GAP | 7 | mmol/L | [facility] | | | [...] the MDRD equation recommended by the | [facility] | | National Kidney Disease Education Program. [...] | + + + + + | [facility] | [address] | [place] [address] | | | SERVICES, CORE | [address] | | | + + + + + US DOPPLER LOWER EXTREMITY LT (11/07/2015 12:22 AM PDT) + + + + + + | Component | Value | Ref Range | Performed | Pathologist | | | | | At | Signature | + + + + + + | US DOPPLER | EXAM: US LOWER | | | | | LOWER EXT | EXTREMITY. HISTORY: Left | | | | | LT | lower extremity | | | | | | swelling. COMPARISON: | | | | | | None TECHNIQUE: | | | | | | Ultrasound of left lower | | | | | | extremity venous system | | | | | | was performed. | | | | | | FINDINGS: Limited | | | | | | evaluation because of | | | | | | obesity. Curved | | | | | | transducer was used. The | | | | | | left mid and distal | | | | | | femoral vein and | | | | | | popliteal vein are | | | | | | noncompressiblewith | | | | | | hypoechoic clot within | | | | | | them. No color or pulse | | | | | | with Doppler flow | | | | | | withinthese veins | | | | | | consistent with | | | | | | occlusive thrombus. | | | | | | Nonocclusive thrombus in | | | | | | leftposterior tibial | | | | | | veins. Bilateral common | | | | | | femoral veins | | | | | | compressible with | | | | | | colorflow and | | | | | | augmentation. Left | | | | | | profundus is patent. | | | | | | IMPRESSION: Abnormal | | | | | | Doppler ultrasound exam | | | | | | of the left lower | | | | | | extremity venous system | | | | | | withocclusive thrombus | | | | | | seen within the mid and | | | | | | distal femoral vein and | | | | | | poplitealvein. | | | | | | Nonocclusive thrombus in | | | | | | left posterior tibial | | | | | | vein. Bilateral | | | | | | commonfemoral veins | | | | | | patent. These | | | | | | noncritical results were | | | | | | called to the ED | | | | | | hydration plant operator at 12:33 AM by | | | | | | , radiology | | | | | | resident. Attending | | | | | | Radiologists: MARSHA | | | | | | ANTHONY GOYALuthor: JOSE | | | | | | MD MELISSA I personally | | | | | | reviewed the images | | | | | | and, if necessary, | | | | | | edited the report. I | | | | | | agreewith the report as | | | | | | now presented. | | | | | | Final/Electronically | | | | | | signed / MARSHA GOYAL | | | | | | 11/07/2015 8:22 AM | | | | + + + + + + + + | Specimen | + + | | + + + +---------+ + + | Performing | Address | City/State/Zipcode | Phone Number | | Organization | | | | + +---------+ + + | [facility] | | | | | RADIOLOGY | | | | + +---------+ + + X-RAY CHEST 2 VIEW (11/06/2015 2:22 PM PDT) + + + + + + | Component | Value | Ref Range | Performed | Pathologist | | | | | At | Signature | + + + + + + | CHEST, 2 | EXAM: CHEST 2 VIEWS | | | | | VIEWS [place] | 11/06/15 14:22:00 | | | | | STEREO | HISTORY: Shortness of | | | | | | breath. COMPARISON: | | | | | | 11/06/12 FINDINGS: The | | | | | | cardiomediastinal | | | | | | contour is normal. The | | | | | | lungs are clear. There | | | | | | is nodefinite pleural | | | | | | effusion. There is no | | | | | | pulmonary edema or | | | | | | pneumothorax. Thebones | | | | | | are intact. IMPRESSION: | | | | | | Clear lungs Attending | | | | | | Radiologists: ONUR | | | | | | ANTHONY DAOuthor: ONUR | | | | | | MD SYLWIA I personally | | | | | | reviewed the images and, | | | | | | if necessary, edited | | | | | | the report. I agreewith | | | | | | the report as now | | | | | | presented. | | | | | | Final/Electronically | | | | | | signed / ONUR | | | | | | SYLWIA 11/06/2015 15:02 PM | | | | | | [...] | | | + +---------+ + + TROPONIN, POC (11/06/2015 2:09 PM PDT) + +-------+ + + + | Component | Value | Ref Range | Performed | Pathologist | | | | | At | Signature | + +-------+ + + + | TROPONIN, | <0.02 | 0.0 - 0.49 | [facility] - | | | POC | | ng/mL | [facility] | | | | | | [facility] [...] + | [facility] | [address] | [place], [place] | | | [facility] | [address] | [address] | | | TESTS | | | | + + + + + ED -VALERIE BENZ (11/06/2015 2:06 PM PDT) + + + + + + | Component | Value | Ref Range | Performed | Pathologist | | | | | At | Signature | + + + + + + | ED BG POC | 19 (L) | 23 - 29 mmol/L | [facility] - | | | TC02 | | | [facility] | | | | | | [place] | | | | | | [facility] | | | | | | TESTS | | + + + + + + | ED BG POC | 7.32 (L) | 7.35 - 7.45 | [facility] - | | | PH | | | [facility] | | | | | | [facility] | | | | | | [facility]ARE | | | | | | TESTS | | + + + + + + | ED BG POC | 36 | 35 - 50 mmHg | [facility] - | | | PCO2 | | | [facility] | | | | | | [facility] | | | | | | [facility]ARE | | | | | | TESTS | | + + + + + + | ED BG POC | 18 (L) | 22 - 28 mmol/L | [facility] - | | | HCO3 | | | [facility] | | | | | | [place] | | | | | | OF CARE | | | | | | TESTS | | + + + + + + | ED BG POC | -8.0 | mmol/L | [facility] - | | | BE | | | [facility] | | | | | | [facility] | | | | | | [facility]ARE | | | | | | TESTS | | + + + + + + | ED BG POC | <50 | 30 - 55 mmHg | [facility] - | | | PO2 | | | [facility] | | | | | | [facility] | | | | | | [facility]ARE | | | | | | TESTS | | + + + + + + | ED BG POC | 82 | % | [facility] - | | | SO2 | | | [facility] | | | | | | [facility] | | | | | | [facility] CARE | | | | | | TESTS | | + + + + + + | ED LACTATE | 1.3 | 0.5 - 2.2 | [facility] - | | | POC | | mmol/L | [facility] | | | | | | [facility] | | | | | | [facility]ARE | | | | | | TESTS | | + + + + + + | ED BG POC | 36.8 C | | [facility] - | | | TEMP | | | [facility] | | | | | | [place] [facility] | | | | | | OF [facility]ARE | | | | | | TESTS | | + + + + + + | ISTAT | VENOUS | | [facility] - | | | SAMPLE TYPE | | | [facility] | | | [...] + + | [facility] | [address] | [place], [place] | | | [facility] | [facility] | [address] | | | TESTS | | | | + + + + + RAINBOW HOLD TUBE - BLUE TOP (11/06/2015 1:38 PM PDT) + + | Specimen | + + | Blood - Blood | | (substance) | + + + + + + + | Performing | Address | City/State/Zipcode | Phone Number | | Organization | | | | + + + + + | [facility] | [address] | [place] [address] | | | [place], [place]YD[place] | [place] | | | + + + + + 12 LEAD ECG (11/06/2015 1:37 PM PDT) + + + + + + | Component | Value | Ref Range | Performed | Pathologist | | | | | At | Signature | + + + + + + | VENTRICULAR | 117 | bpm | [facility] | | | RATE | | | OF | | | | | | CARDIOLOGY | | + + + + + + | ATRIAL RATE | 117 | bpm | [facility] | | | | | | OF | | | | | | CARDIOLOGY | | + + + + + + | P-R | 176 | ms | [facility] | | | INTERVAL | | | OF | | | | | | CARDIOLOGY | | + + + + + + | P AXIS | 48 | deg | [facility] | | | | | | OF | | | | | | CARDIOLOGY | | + + + + + + | QRS | 80 | ms | [facility] | | | DURATION | | | OF | | | | | | CARDIOLOGY | | + + + + + + | QT | 316 | ms | [facility] | | | | | | OF | | | | | | CARDIOLOGY | | + + + + + + | QTC-HOWARD | 441 | ms | [facility] | | | | | | OF | | | | | | CARDIOLOGY | | + + + + + + | R AXIS | -73 | deg | [facility] | | | | | | OF | | | | | | CARDIOLOGY | | + + + + + + | T AXIS | 33 | deg | [facility] | | | | | | OF | | | | | | CARDIOLOGY | | + + + + + + | ECG | SINUS | | [facility] | | | IMPRESSION | TACHYCARDIAABNORMAL Q | | OF | | | | SUGGESTS ANTERIOR | | CARDIOLOGY | | | | INFARCT- ABNORMAL ECG | | | | | | -Electronically signed | | | | | | by: MARLENY CHRISTIAN | | | | | | 11-06-2015 19:39:46 | | | | + + + [...] + + + + + | [facility] | [address] | [place], [place] | | | CARDIOLOGY | [address] | [id number] | | + + + + + CBC AND AUTO DIFF (11/06/2015 1:31 PM PDT) + + + + + + | Component | Value | Ref Range | Performed | Pathologist | | | | | At | Signature | + + + + + + | WHITE CELL | 14.02 (H) | 4.40 - 11.00 | [facility] | | | COUNT | | K/cu mm | LABORATORY | | | | | | SERVICES, | | | | | | CORE | | + + + + + + | RED CELL | 4.30 | 4.00 - 5.20 | [facility] | | | COUNT | | M/cu mm | LABORATORY | | | | | | SERVICES, | | | | | | CORE | | + + + + + + | HEMOGLOBIN | 10.3 (L) | 12.0 - 16.0 | [facility] | | | | | g/dL | LABORATORY | | | | | | SERVICES, | | | | | | CORE | | + + + + + + | HEMATOCRIT | 34.9 (L) | 36.0 - 46.0 % | [facility] | | | | | | LABORATORY | | | | | | SERVICES, | | | | | | CORE | | + + + + + + | MCV | 81.2 | 80.0 - 96.0 fL | [facility] | | | | | | LABORATORY | | | | | | SERVICES, | | | | | | CORE | | + + + + + + | MCHC | 29.5 | 33.0 - 35.5 | [facility] | [...] + + + + | PLATELET | 307 | 150 - 400 K/cu | [facility] | | | COUNT | | mm | LABORATORY | | | | | | SERVICES, | | | | | | CORE | | + + + + + + | MPV | 9.8 | 9.7 - 12.3 fL | [facility] [...] + + + + | NEUTROPHIL | 63.1 | 50.0 - 70.0 % | [facility] | | | % | | | LABORATORY | | | | | | SERVICES, | | | | | | CORE | | + + + + + + | LYMPHOCYTE | 21.3 | 18.0 - 42.0 % | [facility] | | | % | | | LABORATORY | | | | | | SERVICES, | | | | | | CORE | | + + + + + + | MONOCYTE % | 7.7 | 3.5 - 9.0 % | [facility] | | | | | | LABORATORY | | | | | | SERVICES, | | | | | | CORE | | + + + + + + | EOS % | 6.1 (H) | 1.0 - 3.0 % | [facility] | | | | | | LABORATORY | | | | | | SERVICES, | | | | | | CORE | | + + + + + + | BASO % | 0.9 | 0.0 - 2.0 % | [facility] | | | | | | LABORATORY | | | | | | SERVICES, | | | | | | CORE | | + + + + + + | IG% | 0.9 (H)Comment: Immature | 0.0 - 0.6 % | [facility] | | | | Granulocytes (IG) | | LABORATORY | | | | include metamyelocytes, | | SERVICES, | | | | myelocytes and | | CORE | | | | promyelocytes. Bands | | | | | | are not included in the | | | | | | IG count. Bands are | | | | | | included in the | | | | | | neutrophil count. | | | | + + + + + + | NEUTROPHIL | 8.87 (H) | 1.80 - 7.70 | [facility] | | | # | | K/cu mm | LABORATORY | | | | | | SERVICES, | | | | | | CORE | | + + + + + + | LYMPHOCYTE | 2.98 | 1.00 - 4.80 | [facility] | | | # | | K/cu mm | LABORATORY | | | | | | SERVICES, | | | | | | CORE | | + + + + + + | MONOCYTE # | 1.08 (H) | 0.10 - 0.90 | [facility] | | | | | K/cu mm | LABORATORY | | | | | | SERVICES, | | | | | | CORE | | + + + + + + | EOS # | 0.85 (H) | 0.00 - 0.50 | [facility] | | | | | K/cu mm | LABORATORY | | | | | | SERVICES, | | | | | | CORE | | + + + + + + | BASO # | 0.12 (H) | 0.00 - 0.10 | [facility] | | | | | K/cu mm | LABORATORY | | | | | | SERVICES, | | | | | | CORE | | + + + + + + | IG# | 0.12 (H) | 0.00 - 0.03 | [facility] [...] | included in the neutrophil count. | LYDIA RANGEL | + + + + + + + + | Performing | Address | City/State/Zipcode | Phone Number | | Organization | | | | + + + + + | [facility] | [address] | [place] [address] | | | LYDIA RANGEL | [address] | | | + + + + + MAGNESIUM, PLASMA (11/06/2015 1:31 PM PDT) + +-------+ + + + | Component | Value | Ref Range | Performed | Pathologist | | | | | At | Signature | + +-------+ + + + | MAGNESIUM,P | 1.9 | 1.8 - 2.5 mg/dL | [facility] | | | LASMA | | | LABORATORY | | | [...] + + | [facility] | [address] | [place] [address] | | | SERVICES, CORE | [address] | | | + + + + + COMPLETE METABOLIC SET (NA,K,CL,CO2,BUN,CREAT,GLUC,CA,AST,ALT,BILI TOTAL,ALK PHOS,ALB,PROT TOTAL) (11/06/2015 1:31 PM PDT) + +---------+ + + + | Component | Value | Ref Range | Performed | Pathologist | | | | | At | Signature | + +---------+ + + + | GLUCOSE, | 126 (H) | 60 - 99 mg/dL | [facility] | | | PLASMA | | | LABORATORY | | | (LAB) | | | SERVICES, | | | | | | CORE | | + +---------+ + + + | BUN, PLASMA | 16 | 6 - 20 mg/dL | [facility] | | | (LAB) | | | LABORATORY | | | | | | SERVICES, | | | | | | CORE | | + +---------+ + + + | CREATININE | 0.82 | 0.60 - 1.10 | [facility] | | | PLASMA | | mg/dL | LABORATORY | | | (LAB) | | | SERVICES, | | | | | | CORE | | + +---------+ + + + | EGFR | >60 | >60 mL/min | [facility] | | | - | | | LABORATORY | | | [place] | | | SERVICES, | | | | | | CORE | | + +---------+ + + + | EGFR NON | >60 | >60 mL/min | [facility] | | | -RAJNI | | | LABORATORY | | | [facility] | | | SERVICES, | | | | | | CORE | | + +---------+ + + + | SODIUM, | 139 | 136 - 145 | [facility] | | | PLASMA | | mmol/L | LABORATORY | | | (LAB) | | | SERVICES, | | | | | | CORE | | + +---------+ + + + | POTASSIUM, | 5.1 (H) | 3.4 - 5.0 | [facility] | | | PLASMA | | mmol/L | LABORATORY | | | (LAB) | | | SERVICES, | | | | | | CORE | | + +---------+ + + + | CHLORIDE, | 110 (H) | 97 - 108 mmol/L | [facility] | | | PLASMA | | | LABORATORY | | | (LAB) | | | SERVICES, | | | | | | CORE | | + +---------+ + + + | TOTAL CO2, | 20 (L) | 21 - 32 mmol/L | [facility] [...] +---------+ + + + | BILIRUBIN | 0.3 | 0.3 - 1.2 mg/dL | [facility] | | | TOTAL | | | LABORATORY | | | | | | SERVICES, | | | | | | CORE | | + +---------+ + + + | TOTAL | 7.7 | 6.4 - 8.2 g/dL | [facility] | | | PROTEIN, | | | LABORATORY | | | PLASMA | | | SERVICES, | | | (LAB) | | | CORE | | + +---------+ + + + | ALBUMIN, | 3.0 (L) | 3.5 - 4.7 g/dL | [facility] | | | PLASMA | | | LABORATORY | | | (LAB) | | | SERVICES, | | | | | | CORE | | + +---------+ + + + | ALK PHOS | 114 (H) | 42 - 98 U/L | [facility] | | | | | | LABORATORY | | | | | | SERVICES, | | | | | | CORE | | + +---------+ + + + | AST(SGOT) | 45 (H) | <=41 U/L | [facility] | | [...] + + + | ANION GAP | 9 | mmol/L | [facility] | | | [...] + + | Sample hemolyzed. Results for K, Total Bili, Direct Bili, AST, | [facility] | | LDH, or HDL may be inaccurate. Refer to comment under test result. | LABORATORY | | GFR is estimated using the MDRD equation recommended by the National | SERVICES, CORE | | Kidney Disease Education Program. Estimated GFR Interpretive | | | Information: <60 mL/min/1.73 sq m Chronic Kidney | | | Disease <15 mL/min/1.73 sq m Kidney Failure | | | Estimated GFR greater that 60 mL/min/1.73 sq m is of limited clinical | | | value. The MDRD equation is not valid in the following situations: | | | - Patients under 18 years of age - Severe malnutrition or obesity | | | - Vegetarian diet - Rapidly changing kidney function | | + + + + + + + + | Performing | Address | City/State/Zipcode | Phone Number | | Organization | | | | + + + + + | [facility] | [address] | [place] [address] | | | SERVICES, CORE | [address] | | | + + + + + NT-PRO BNP (11/06/2015 1:31 PM PDT) + +-------+ + + + | Component | Value | Ref Range | Performed | Pathologist | | | | | At | Signature | + +-------+ + + + | NT-PRO BNP | 64 | <125 pg/mL | [facility] | | | | [...] | + + + + + | [facility] | [address] | [place] [address] | | | SERVICES, CORE | [address] | | | + + + + + ED INFORMATION EXCHANGE (11/06/2015 1:26 PM PDT) + + + + + + | Component | Value | Ref Range | Performed | Pathologist | | | | | At | Signature | + + + + + + | [facility] | [id number] | | [facility] | | | | [id number] | | MEDICAL | | | | | | TECHNOLOGIE | | | | | | S | | + + + + + + + + | Specimen | + + | | + + + + + | Narrative | Performed At | + + + | [facility] has no Care Guidelines for this patient. ED/UCC VISIT | [facility] | | TRACKING (3 MO.) Visit Date Location | MEDICAL | | Type Dx / Complaint | TECHNOLOGIES | | -------- | | | ---- 11/06/2015 | | | 13:25 [facility] [place] [facility] | | | [address]. Referral; Cellulitis 09/28/2015 15:39 [facility] | | | Hospital Emergency -Migraine, unspecified, | | | not intractable, without status | | | | | | migrainosus | | | -Cellulitis | | | of right lower limb | | | | | | -Cellulitis of left lower limb | | | | | | -Morbid (severe) obesity due to excess calories | | | | | | -Type 2 diabetes mellitus without complications | | | | | | -Acquired absence of other | | | specified parts of digestive tract | | | | | | -Pain in left lower leg 09/13/2015 14:54 [facility] | | | Hospital Emergency -Unspecified abdominal | | | pain | | | -Essential (primary) | | | hypertension | | | -Unspecified | | | abdominal hernia without obstruction or gangrene | | | | | | -Allergy status to other antibiotic agents status | | | | | | -Type 2 diabetes mellitus | | | without complications | | | | | | -Acquired absence of other organs | | | | | | -Other specified postprocedural states | | | | | | -Allergy status to other drugs, medicaments and | | | biological | | | substances status | | | | | | -Other intermodal customer service (current) | | | drug therapy | | | -Allergy status | | | to penicillin ED VISIT COUNT (1 YR.) Visits Location | | | ------ --------- 1 [facility] | | | [place] 9 [facility] 10 | | | Total Note: Visits indicate total known visits. | | | | | | --- | | + + + + + + + + | Performing | Address | City/State/Zipcode | Phone Number | | Organization | | | | + + + + + | [facility] | [address] | [place], [place] | [phone] | | TECHNOLOGIES | [address] | [address] | | + + + + + ORDERS OTHER (11/06/2015 12:00 AM PDT) + + + | Narrative | Performed At | + + + | | | + + + documented in this encounter Visit Diagnoses + + | Diagnosis | + + | Anasarca - Primary Edema | + + | Cellulitis of left lower extremity Cellulitis and abscess of leg, except foot | + + | Sepsis, due to unspecified organism | + + | Heart failure, unspecified (HCC) Heart failure, unspecified | + + | Acute DVT (deep venous thrombosis) -- left mid & distal femoral vein, and popliteal | | vein | + + | AMARA (obstructive sleep apnea) Obstructive sleep apnea (adult) (pediatric) | + + | Type 2 diabetes mellitus (HCC) Type II or unspecified type diabetes mellitus without | | mention of complication, not stated as uncontrolled | + + | Hypoventilation associated with obesity (HCC) Obesity hypoventilation syndrome | + + | Severe Morbid obesity (HCC), BMI 88 Morbid obesity | + + | Edema and weight gain Edema | + + | Right heart failure (HCC) Congestive heart failure, unspecified | + + | Candidal intertrigo Candidiasis of skin and nails | + + | Iron deficiency anemia due to chronic blood loss Iron deficiency anemia secondary to | | blood loss (chronic) | + + | Hypoalbuminemia (no proteinuria, need to rule out synthetic, nutrition, loss) Other | | disorders of plasma protein metabolism | + + | Hypothyroidism Unspecified hypothyroidism | + + documented in this encounter Administered Medications + +--------+ + +------+------+ | Medication Order | MAR | Action | Dose | Rate | Site | | | Action | Date | | | | + +--------+ + +------+------+ | acetaminophen (TYLENOL) tablet | Given | 11/21/19 | 1,000 mg | | | | 1,000 mg 1,000 mg, oral, THREE | | 16 9:33 | | | | | TIMES DAILY, First dose on Thu | | AM PDT | | | | | 11/08/15 at 1600, Until | | | | | | | Discontinued | | | | | | + +--------+ + +------+------+ +-------+ + +---+---+ | Given | 11/20/19 | 1,000 mg | | | | | 16 9:39 | | | | | | PM PDT | | | | +-------+ + +---+---+ | Given | 11/20/19 | 1,000 mg | | | | | 16 4:03 | | | | | | PM PDT | | | | +-------+ + +---+---+ +---+---+ | | | +---+---+ + +-------+ +--------+---+---+ | acetaminophen (TYLENOL) tablet | Given | 11/07/19 | 650 mg | | | | 650 mg 650 mg, oral, ONCE, 1 | | 16 4:09 | | | | | dose, Thu11/07/15 at 1630 | | PM PDT | | | | + +-------+ +--------+---+---+ +---+---+ | | | +---+---+ + +-------+ +------+---+---+ | ALPRAZolam (XANAX) tablet 1 mg | Given | 11/20/19 | 1 mg | | | | 1 mg, oral, THREE TIMES DAILY | | 16 1:26 | | | | | NEEDED, Starting Thu11/07/15 at | | PM PDT | | | | | 0456, Until Thu11/21/15 at 1949, | | | | | | | anxiety | | | | | | + +-------+ +------+---+---+ +-------+ +------+---+---+ | Given | 11/18/19 | 1 mg | | | | | 16 10:07 | | | | | | AM PDT | | | | +-------+ +------+---+---+ | Given | 11/08/19 | 1 mg | | | | | 16 9:41 | | | | | | PM PDT | | | | +-------+ +------+---+---+ +---+---+ | | | +---+---+ + +-------+ +------+---+------+ | alteplase (CATHFLO ACTIVASE) | Given | 11/19/19 | 2 mg | | PICC | | injection 2 mg 2 mg, | | 16 9:27 | | | | | Intracatheter, ONCE, 1 dose, Mon | | AM PDT | | | | | 11/19/15 at 0730 | | | | | | + +-------+ +------+---+------+ +---+---+ | | | +---+---+ + +-------+ +------+---+------+ | alteplase (CATHFLO ACTIVASE) | Given | 11/19/19 | 2 mg | | PICC | | injection 2 mg 2 mg, | | 16 8:30 | | | | | Intracatheter, NEEDED, | | PM PDT | | | | | Starting 11/19/15 at 1425, | | | | | | | Until Thu11/21/15 at 1949, for | | | | | | | PICC clot | | | | | | + +-------+ +------+---+------+ +---+---+ | | | +---+---+ + +-------+ +--------+---+---+ | ascorbic acid tablet 500 mg | Given | 11/21/19 | 500 mg | | | | 500 mg, oral, DAILY, First dose | | 16 9:34 | | | | | on Thu11/07/15 at 0900, Until | | AM PDT | | | | | Discontinued | | | | | | + +-------+ +--------+---+---+ +-------+ +--------+---+---+ | Given | 11/20/19 | 500 mg | | | | | 16 9:42 | | | | | | AM PDT | | | | +-------+ +--------+---+---+ | Given | 11/19/19 | 500 mg | | | | | 16 9:41 | | | | | | AM PDT | | | | +-------+ +--------+---+---+ +---+---+ | | | +---+---+ + +-------+ +---------+---+---+ | ergocalciferol (VITAMIN D2, | Given | 11/20/19 | 50,000 | | | | DRISDOL) capsule 50,000 Units | | 16 9:42 | Units | | | | 50,000 Units, oral, EVERY TU AND | | AM PDT | | | | | FANNY (Once per day on Thu), | | | | | | | First dose on Fanny 11/08/15 at | | | | | | | 0900, Until Discontinued | | | | | | + +-------+ +---------+---+---+ +-------+ +---------+---+---+ | Given | 11/15/19 | 50,000 | | | | | 16 9:11 | Units | | | | | AM PDT | | | | +-------+ +---------+---+---+ | Given | 11/13/19 | 50,000 | | | | | 16 9:27 | Units | | | | | AM PDT | | | | +-------+ +---------+---+---+ +---+---+ | | | +---+---+ + +-------+ + +---+---+ | ferrous sulfate tablet 65 mg | Given | 11/11/19 | 65 mg | | | | elemental 65 mg elemental (325 | | 16 8:39 | elementa | | | | mg total salt), oral, DAILY, | | AM PDT | l | | | | First dose on Thu11/10/15 at | | | | | | | 0930, Until Discontinued | | | | | | + +-------+ + +---+---+ +-------+ + +---+---+ | Given | 11/10/19 | 65 mg | | | | | 16 8:37 | elementa | | | | | AM PDT | l | | | +-------+ + +---+---+ +---+---+ | | | +---+---+ + +-------+ +-------+---+---+ | FLUoxetine (PROZAC) capsule 60 | Given | 11/21/19 | 60 mg | | | | mg 60 mg, oral, DAILY, First | | 16 9:33 | | | | | dose on Thu11/07/15 at 0900, | | AM PDT | | | | | Until Discontinued | | | | | | + +-------+ +-------+---+---+ +-------+ +-------+---+---+ | Given | 11/20/19 | 60 mg | | | | | 16 9:42 | | | | | | AM PDT | | | | +-------+ +-------+---+---+ | Given | 11/19/19 | 60 mg | | | | | 16 9:41 | | | | | | AM PDT | | | | +-------+ +-------+---+---+ +---+---+ | | | +---+---+ + +---------+ +-------+---+---+ | furosemide (LASIX) injection 60 | New Bag | 11/08/19 | 60 mg | | | | mg 60 mg, intravenous, TWICE | | 16 8:31 | | | | | DAILY (DIURETIC), First dose on | | AM PDT | | | | | Fanny 11/08/15 at 0700, Until | | | | | | | Discontinued | | | | | | + +---------+ +-------+---+---+ +---+---+ | | | +---+---+ + +---------+ +-------+---+---+ | furosemide (LASIX) injection 60 | New Bag | 11/08/19 | 60 mg | | | | mg 60 mg, intravenous, ONCE, 1 | | 16 4:14 | | | | | dose, [facility] 11/08/15 at 1430 | | PM PDT | | | | + +---------+ +-------+---+---+ +---+---+ | | | +---+---+ + +---------+ +-------+---+---+ | furosemide (LASIX) injection 60 | New Bag | 11/10/19 | 60 mg | | | | mg 60 mg, intravenous, TWICE | | 16 8:36 | | | | | DAILY (DIURETIC), First dose on | | AM PDT | | | | | 11/09/15 at 0815, Until | | | | | | | Discontinued | | | | | | + +---------+ +-------+---+---+ +---------+ +-------+---+---+ | New Bag | 11/09/19 | 60 mg | | | | | 16 6:13 | | | | | | PM PDT | | | | +---------+ +-------+---+---+ | New Bag | 11/09/19 | 60 mg | | | | | 16 9:49 | | | | | | AM PDT | | | | +---------+ +-------+---+---+ +---+---+ | | | +---+---+ + +---------+ +-------+---+---+ | furosemide (LASIX) injection 60 | New Bag | 11/11/19 | 60 mg | | | | mg 60 mg, intravenous, TWICE | | 16 8:38 | | | | | DAILY (DIURETIC), First dose | | AM PDT | | | | | (after last modification) on Sat | | | | | | | 11/10/15 at 1500, Until | | | | | | | Discontinued | | | | | | + +---------+ +-------+---+---+ +---------+ +-------+---+---+ | New Bag | 11/10/19 | 60 mg | | | | | 16 4:20 | | | | | | PM PDT | | | | +---------+ +-------+---+---+ +---+---+ | | | +---+---+ + +---------+ +--------+---+---+ | furosemide (LASIX) IV 100 mg | New Bag | 11/15/19 | 100 mg | | | | 100 mg, intravenous, TWICE DAILY | | 16 2:05 | | | | | (DIURETIC), First dose (after | | PM PDT | | | | | last modification) on 11/11/15 | | | | | | | at 1400, Until Discontinued | | | | | | + +---------+ +--------+---+---+ +---------+ +--------+---+---+ | New Bag | 11/15/19 | 100 mg | | | | | 16 6:48 | | | | | | AM PDT | | | | +---------+ +--------+---+---+ | New Bag | 11/14/19 | 100 mg | | | | | 16 2:40 | | | | | | PM PDT | | | | +---------+ +--------+---+---+ +---+---+ | | | +---+---+ + +---------+ +--------+---+---+ | furosemide (LASIX) IV 120 mg | New Bag | 11/07/19 | 120 mg | | | | 120 mg, intravenous, ONCE, 1 | | 16 8:30 | | | | | dose, 11/07/15 at 0845 | | AM PDT | | | | + +---------+ +--------+---+---+ +---+---+ | | | +---+---+ + +---------+ +--------+---+---+ | furosemide (LASIX) IV 120 mg | New | 11/17/19 | 120 mg | | | | 120 mg, intravenous, TWICE DAILY | | 16 7:56 | | | | | (DIURETIC), First dose (after | | AM PDT | | | | | last modification) on Thu11/16/15 | | | | | | | at 0700, Until Discontinued | | | | | | + +---------+ +--------+---+---+ +---------+ +--------+---+---+ | New Bag | 11/16/19 | 120 mg | | | | | 16 2:37 | | | | | | PM PDT | | | | +---------+ +--------+---+---+ | New Bag | 11/16/19 | 120 mg | | | | | 16 6:30 | | | | | | AM PDT | | | | +---------+ +--------+---+---+ +---+---+ | | | +---+---+ + +---------+ +--------+---+---+ | furosemide (LASIX) IV 120 mg | New Bag | 11/19/19 | 120 mg | | | | 120 mg, intravenous, TWICE DAILY | | 16 10:09 | | | | | (DIURETIC), First dose (after | | AM PDT | | | | | last modification) on 11/18/15 | | | | | | | at 0800, Until Discontinued | | | | | | + +---------+ +--------+---+---+ +---------+ +--------+---+---+ | New Bag | 11/18/19 | 120 mg | | | | | 16 2:33 | | | | | | PM PDT | | | | +---------+ +--------+---+---+ | New Bag | 11/18/19 | 120 mg | | | | | 16 8:42 | | | | | | AM PDT | | | | +---------+ +--------+---+---+ +---+---+ | | | +---+---+ + +---------+ +--------+---+---+ | furosemide (LASIX) IV 120 mg | New Bag | 11/20/19 | 120 mg | | | | 120 mg, intravenous, DAILY, First | | 16 7:45 | | | | | dose (after last modification) | | AM PDT | | | | | on Thu11/20/15 at 0700, Until | | | | | | | Discontinued | | | | | | + +---------+ +--------+---+---+ +---+---+ | | | +---+---+ + +-------+ +--------+---+---+ | gabapentin (NEURONTIN) capsule | Given | 11/21/19 | 300 mg | | | | 300 mg 300 mg, oral, FOUR TIMES | | 16 9:33 | | | | | DAILY, First dose on Thu11/07/15 | | AM PDT | | | | | at 0900, Until Discontinued | | | | | | + +-------+ +--------+---+---+ +-------+ +--------+---+---+ | Given | 11/20/19 | 300 mg | | | | | 16 9:41 | | | | | | PM PDT | | | | +-------+ +--------+---+---+ | Given | 11/20/19 | 300 mg | | | | | 16 6:52 | | | | | | PM PDT | | | | +-------+ +--------+---+---+ +---+---+ | | | +---+---+ + + + +---------+---+---+ | heparin bolus from continuous | Bolus | 11/07/19 | 10,000 | | | | infusion 10,000 Units | from | 16 12:20 | Units | | | | intravenous, ONCE, 1 dose, Wed | Same Bag | PM PDT | | | | | 11/07/15 at 1045 | | | | | | + + + +---------+---+---+ +---+---+ | | | +---+---+ + + + +--------+---+---+ | heparin bolus from continuous | Bolus | 11/08/19 | 5,000 | | | | infusion 5,000 Units | from | 16 2:23 | Units | | | | intravenous, BOLUS PRN, Starting | Same Bag | AM PDT | | | | | 11/07/15 at 1002, Until Sun | | | | | | | 11/18/15 at 0902, heparin level | | | | | | | 0.1-0.21 units/mL | | | | | | + + + +--------+---+---+ +---+---+ | | | +---+---+ + + + + +-------+---+ | heparin in D5W IV infusion | Rate/Dos | 11/11/19 | 3,450 | 34.5 | | | 25,000 units/250 mL 1-2,500 | e Change | 16 3:23 | Units/hr | mL/hr | | | Units/hr (0.01-25 mL/hr), | | PM PDT | | | | | intravenous, CONTINUOUS, Starting | | | | | | | 11/07/15 at 1045, Until Sun | | | | | | | 11/11/15 at 1602 | | | | | | + + + + +-------+---+ + + + +-------+---+ | New Bag | 11/11/19 | 3,250 | 32.5 | | | | 16 12:58 | Units/hr | mL/hr | | | | PM PDT | | | | + + + +-------+---+ | Rate/Dose Change | 11/11/19 | 3,250 | 32.5 | | | | 16 6:27 | Units/hr | mL/hr | | | | AM PDT | | | | + + + +-------+---+ +---+---+ | | | +---+---+ + +---------+ + +-------+---+ | heparin in D5W IV infusion | New Bag | 11/18/19 | 2,850 | 28.5 | | | 25,000 units/250 mL 1-4,000 | | 16 6:30 | Units/hr | mL/hr | | | Units/hr (0.01-40 mL/hr), | | AM PDT | | | | | intravenous, CONTINUOUS, Starting | | | | | | | 11/11/15 at 1645, Until Sun | | | | | | | 11/18/15 at 0902 | | | | | | + +---------+ + +-------+---+ +---------+ + +-------+---+ | New Bag | 11/17/19 | 2,850 | 28.5 | | | | 16 10:22 | Units/hr | mL/hr | | | | PM PDT | | | | +---------+ + +-------+---+ | New Bag | 11/17/19 | 28.5 | 0.29 | | | | 16 5:53 | Units/hr | mL/hr | | | | AM PDT | | | | +---------+ + +-------+---+ +---+---+ | | | +---+---+ + +-------+ +--------+---+---+ | heparin injection 5,000 Units | Given | 11/07/19 | 5,000 | | | | 5,000 Units, subcutaneous, EVERY | | 16 8:30 | Units | | | | 8 HOURS, First dose on Wed | | AM PDT | | | | | 11/07/15 at 0800, Until | | | | | | | Discontinued | | | | | | + +-------+ +--------+---+---+ +---+---+ | | | +---+---+ + +---------+ +------+---+---+ | HYDROmorphone (DILAUDID) | IV Push | 11/06/19 | 1 mg | | | | injection 1 mg 1 mg, | | 16 8:44 | | | | | intravenous, ONCE, 1 dose, Tue | | PM PDT | | | | | 11/06/15 at 2115 | | | | | | + +---------+ +------+---+---+ +---+---+ | | | +---+---+ + +-------+ +---------+---+---+ | insulin lispro (HUMALOG) | Given | 11/21/19 | 2 Units | | | | injection subcutaneous, FOUR | | 16 9:33 | | | | | TIMES DAILY, First dose on Thu | | AM PDT | | | | | 4/13/16 at 0800, Until | | | | | | | Discontinued | | | | | | + +-------+ +---------+---+---+ +-------+ +---------+---+---+ | Given | 11/20/19 | 1 Units | | | | | 16 10:02 | | | | | | PM PDT | | | | +-------+ +---------+---+---+ | Given | 11/20/19 | 2 Units | | | | | 16 1:26 | | | | | | PM PDT | | | | +-------+ +---------+---+---+ +---+---+ | | | +---+---+ + +-------+ + +---+---+ | insulin NPH (HUMULIN N) | Given | 11/21/19 | 75 Units | | | | injection 75 Units 75 Units, | | 16 9:33 | | | | | subcutaneous, BEFORE BREAKFAST, | | AM PDT | | | | | First dose on Thu11/07/15 at | | | | | | | 0645, Until Discontinued | | | | | | + +-------+ + +---+---+ +-------+ + +---+---+ | Given | 11/20/19 | 75 Units | | | | | 16 9:41 | | | | | | AM PDT | | | | +-------+ + +---+---+ | Given | 11/19/19 | 75 Units | | | | | 16 10:09 | | | | | | AM PDT | | | | +-------+ + +---+---+ +---+---+ | | | +---+---+ + +---------+ +--------+-------+---+ | iron sucrose (VENOFER) 200 mg | New Bag | 11/17/19 | 200 mg | 160 | | | in NaCl 0.9 % IV 200 mg, | | 16 10:22 | | mL/hr | | | intravenous, DAILY, 5 doses, | | AM PDT | | | | | First dose on Thu11/13/15 at | | | | | | | 1630, Last dose on Thu11/17/15 at | | | | | | | 0900 | | | | | | + +---------+ +--------+-------+---+ +---------+ +--------+-------+---+ | New Bag | 11/16/19 | 200 mg | 160 | | | | 16 8:20 | | mL/hr | | | | AM PDT | | | | +---------+ +--------+-------+---+ | New Bag | 11/15/19 | 200 mg | 160 | | | | 16 9:11 | | mL/hr | | | | AM PDT | | | | +---------+ +--------+-------+---+ +---+---+ | | | +---+---+ + +---------+ +-------+---+---+ | ketorolac (TORADOL) injection | New Bag | 11/06/19 | 30 mg | | | | 30 mg 30 mg, intravenous, ONCE, | | 16 10:45 | | | | | 1 dose, L[facility] 11/06/15 at 2230 | | PM PDT | | | | + +---------+ +-------+---+---+ +---+---+ | | | +---+---+ + +-------+ +--------+---+---+ | magnesium oxide (MAG-OX) tablet | Given | 11/21/19 | 400 mg | | | | 400 mg 400 mg, oral, DAILY, | | 16 9:33 | | | | | First dose on Thu11/07/15 at | | AM PDT | | | | | 0900, Until Discontinued | | | | | | + +-------+ +--------+---+---+ +-------+ +--------+---+---+ | Given | 11/20/19 | 400 mg | | | | | 16 9:42 | | | | | | AM PDT | | | | +-------+ +--------+---+---+ | Given | 11/19/19 | 400 mg | | | | | 16 9:41 | | | | | | AM PDT | | | | +-------+ +--------+---+---+ +---+---+ | | | +---+---+ + +-------+ +---+---+---+ | menthol-zinc oxide (CALAZIME) | Given | 11/11/19 | | | | | topical paste topical, THREE | | 16 9:22 | | | | | TIMES DAILY NEEDED, Starting | | PM PDT | | | | | 11/11/15 at 1351, Until Wed | | | | | | | 4/27/16 at 1949, skin | | | | | | | irritation/breakdown | | | | | | + +-------+ +---+---+---+ +---+---+ | | | +---+---+ + +-------+ +--------+---+---+ | metolazone (ZAROXOLYN) tablet | Given | 11/18/19 | 2.5 mg | | | | 2.5 mg 2.5 mg, oral, ONCE, 1 | | 16 7:51 | | | | | dose, [place] 11/18/15 at 0730 | | AM PDT | | | | + +-------+ +--------+---+---+ +---+---+ | | | +---+---+ + +-------+ +--------+---+---+ | metolazone (ZAROXOLYN) tablet | Given | 11/20/19 | 2.5 mg | | | | 2.5 mg 2.5 mg, oral, DAILY, | | 16 6:37 | | | | | First dose on 11/19/15 at | | AM PDT | | | | | 0645, Until Discontinued | | | | | | + +-------+ +--------+---+---+ +-------+ +--------+---+---+ | Given | 11/19/19 | 2.5 mg | | | | | 16 9:42 | | | | | | AM PDT | | | | +-------+ +--------+---+---+ +---+---+ | | | +---+---+ + +---------+ + +---+---+ | NaCl 0.9 % solution 1,000 mL, | New Bag | 11/06/19 | 1,000 mL | | | | intravenous, ONCE, 1 dose, Tue | | 16 8:44 | | | | | 11/06/15 at 2115 | | PM PDT | | | | + +---------+ + +---+---+ +---+---+ | | | +---+---+ + +-------+ +--------+---+---+ | naproxen (NAPROSYN) tablet 500 | Given | 11/09/19 | 500 mg | | | | mg 500 mg, oral, TWICE DAILY | | 16 7:13 | | | | | NEEDED, Starting Thu11/09/15 at | | PM PDT | | | | | 1846, Until Thu11/13/15 at 0903, | | | | | | | moderate pain | | | | | | + +-------+ +--------+---+---+ +---+---+ | | | +---+---+ + +-------+ +---+---+---+ | nystatin (MYCOSTATIN) powder | Given | 11/21/19 | | | | | topical, TWICE DAILY, First dose | | 16 9:34 | | | | | on Thu11/08/15 at 0145, Until | | AM PDT | | | | | Discontinued | | | | | | + +-------+ +---+---+---+ +-------+ +---+---+---+ | Given | 11/20/19 | | | | | | 16 9:41 | | | | | | PM PDT | | | | +-------+ +---+---+---+ | Given | 11/20/19 | | | | | | 16 9:42 | | | | | | AM PDT | | | | +-------+ +---+---+---+ +---+---+ | | | +---+---+ + +-------+ +-------+---+---+ | OLANZapine (ZYPREXA) tablet 30 | Given | 11/07/19 | 30 mg | | | | mg 30 mg, oral, AT BEDTIME, | | 16 10:07 | | | | | First dose on Thu11/07/15 at | | PM PDT | | | | | 2200, Until Discontinued | | | | | | + +-------+ +-------+---+---+ +---+---+ | | | +---+---+ + +-------+ +-------+---+---+ | OLANZapine (ZYPREXA) tablet 30 | Given | 11/20/19 | 30 mg | | | | mg 30 mg, oral, AT BEDTIME, | | 16 9:40 | | | | | First dose on [facility] 11/08/15 at | | PM PDT | | | | | 2200, Until Discontinued | | | | | | + +-------+ +-------+---+---+ +-------+ +-------+---+---+ | Given | 11/19/19 | 30 mg | | | | | 16 11:27 | | | | | | PM PDT | | | | +-------+ +-------+---+---+ | Given | 11/18/19 | 30 mg | | | | | 16 10:14 | | | | | | PM PDT | | | | +-------+ +-------+---+---+ +---+---+ | | | +---+---+ + +-------+ +------+---+---+ | ondansetron (ZOFRAN) tablet 8 | Given | 11/20/19 | 8 mg | | | | mg 8 mg, oral, EVERY 12 HOURS | | 16 11:07 | | | | | NEEDED, Starting Thu11/20/15 at | | AM PDT | | | | | 1047, Until Thu11/21/15 at 1949, | | | | | | | nausea/vomiting | | | | | | + +-------+ +------+---+---+ +---+---+ | | | +---+---+ + +-------+ +------+---+---+ | oxyCODONE (immediate release) | Given | 11/08/19 | 5 mg | | | | (ROXICODONE) tablet 5 mg 5 mg, | | 16 10:57 | | | | | oral, ONCE, 1 dose, [facility] 11/08/15 | | PM PDT | | | | | at 2245 | | | | | | + +-------+ +------+---+---+ +---+---+ | | | +---+---+ + +-------+ +-------+---+---+ | oxyCODONE (immediate release) | Given | 11/21/19 | 10 mg | | | | (ROXICODONE) tablet 5-10 mg 5-10 | | 16 11:01 | | | | | mg, oral, EVERY 4 HOURS | | AM PDT | | | | | NEEDED, Starting Thu11/07/15 at | | | | | | | 0118, Until Thu11/21/15 at 1949, | | | | | | | moderate pain, severe pain | | | | | | + +-------+ +-------+---+---+ +-------+ +-------+---+---+ | Given | 11/21/19 | 10 mg | | | | | 16 6:35 | | | | | | AM PDT | | | | +-------+ +-------+---+---+ | Given | 11/20/19 | 10 mg | | | | | 16 7:52 | | | | | | PM PDT | | | | +-------+ +-------+---+---+ +---+---+ | | | +---+---+ + +-------+ +------+---+---+ | polyethylene glycol (MIRALAX) | Given | 11/12/19 | 17 g | | | | powder 17 g 17 g, oral, DAILY, | | 16 9:02 | | | | | First dose on Thu11/08/15 at | | AM PDT | | | | | 0900, Until Discontinued | | | | | | + +-------+ +------+---+---+ +-------+ +------+---+---+ | Given | 11/11/19 | 17 g | | | | | 16 9:11 | | | | | | PM PDT | | | | +-------+ +------+---+---+ +---+---+ | | | +---+---+ + +-------+ +--------+---+---+ | potassium chloride (KLOR-CON) | Given | 11/08/19 | 40 mEq | | | | packet 40 mEq 40 mEq, oral, | | 16 7:13 | | | | | ONCE, 1 dose, [facility] 11/08/15 at 1900 | | PM PDT | | | | + +-------+ +--------+---+---+ +---+---+ | | | +---+---+ + +-------+ +--------+---+---+ | potassium chloride (KLOR-CON) | Given | 11/15/19 | 60 mEq | | | | packet 60 mEq 60 mEq, oral, | | 16 9:11 | | | | | ONCE, 1 dose, [place] 11/15/15 at 0830 | | AM PDT | | | | + +-------+ +--------+---+---+ +---+---+ | | | +---+---+ + +---------+ +--------+---+---+ | potassium chloride IV (central | New Bag | 11/18/19 | 40 mEq | | | | line) 40 mEq 40 mEq, | | 16 6:00 | | | | | intravenous, ONCE, 1 dose, Sun | | PM PDT | | | | | 11/18/15 at 1800 | | | | | | + +---------+ +--------+---+---+ +---+---+ | | | +---+---+ + +---------+ +--------+---+---+ | potassium chloride IV | New Bag | 11/19/19 | 40 mEq | | | | (peripheral line) 40 mEq 40 mEq, | | 16 5:04 | | | | | intravenous, ONCE, 1 dose, Mon | | PM PDT | | | | | 11/19/15 at 1645 | | | | | | + +---------+ +--------+---+---+ +---+---+ | | | +---+---+ + +---------+ +--------+---+---+ | potassium chloride IV | New Bag | 11/20/19 | 40 mEq | | | | (peripheral line) 40 mEq 40 mEq, | | 16 9:41 | | | | | intravenous, ONCE, 1 dose, Tue | | AM PDT | | | | | 11/20/15 at 0900 | | | | | | + +---------+ +--------+---+---+ +---+---+ | | | +---+---+ + +-------+ +--------+---+---+ | potassium chloride SR (K-DUR) | Given | 11/09/19 | 40 mEq | | | | tablet 40 mEq 40 mEq, oral, | | 16 1:36 | | | | | ONCE, 1 dose, 11/09/15 at 1215 | | PM PDT | | | | + +-------+ +--------+---+---+ +---+---+ | | | +---+---+ + +-------+ +--------+---+---+ | potassium chloride SR (K-DUR) | Given | 11/10/19 | 40 mEq | | | | tablet 40 mEq 40 mEq, oral, | | 16 8:37 | | | | | ONCE, 1 dose, 11/10/15 at 0815 | | AM PDT | | | | + +-------+ +--------+---+---+ +---+---+ | | | +---+---+ + +-------+ +--------+---+---+ | potassium chloride SR (K-DUR) | Given | 11/17/19 | 40 mEq | | | | tablet 40 mEq 40 mEq, oral, | | 16 10:23 | | | | | ONCE, 1 dose, 11/17/15 at 0915 | | AM PDT | | | | + +-------+ +--------+---+---+ +---+---+ | | | +---+---+ + +-------+ +--------+---+---+ | potassium chloride SR (K-DUR) | Given | 11/18/19 | 40 mEq | | | | tablet 40 mEq 40 mEq, oral, | | 16 6:03 | | | | | ONCE, 1 dose, 11/18/15 at 1745 | | PM PDT | | | | + +-------+ +--------+---+---+ +---+---+ | | | +---+---+ + +-------+ +--------+---+---+ | potassium chloride SR (K-DUR) | Given | 11/21/19 | 40 mEq | | | | tablet 40 mEq 40 mEq, oral, | | 16 9:33 | | | | | THREE TIMES DAILY, First dose on | | AM PDT | | | | | 11/20/15 at 0900, Until | | | | | | | Discontinued | | | | | | + +-------+ +--------+---+---+ +-------+ +--------+---+---+ | Given | 11/20/19 | 40 mEq | | | | | 16 9:39 | | | | | | PM PDT | | | | +-------+ +--------+---+---+ | Given | 11/20/19 | 40 mEq | | | | | 16 4:04 | | | | | | PM PDT | | | | +-------+ +--------+---+---+ +---+---+ | | | +---+---+ + +-------+ +--------+---+---+ | potassium chloride SR (K-DUR) | Given | 11/19/19 | 40 mEq | | | | tablet 40 mEq 40 mEq, oral, | | 16 5:51 | | | | | EVERY 1 HOUR, 2 doses, First dose | | PM PDT | | | | | (after last modification) on Mon | | | | | | | 11/19/15 at 1630, Last dose on | | | | | | | 11/19/15 at 1800 | | | | | | + +-------+ +--------+---+---+ +-------+ +--------+---+---+ | Given | 11/19/19 | 40 mEq | | | | | 16 5:04 | | | | | | PM PDT | | | | +-------+ +--------+---+---+ +---+---+ | | | +---+---+ + +-------+ +--------+---+---+ | potassium chloride SR (K-DUR) | Given | 11/11/19 | 60 mEq | | | | tablet 60 mEq 60 mEq, oral, | | 16 1:42 | | | | | ONCE, 1 dose, 11/11/15 at 1145 | | PM PDT | | | | + +-------+ +--------+---+---+ +---+---+ | | | +---+---+ + +-------+ +--------+---+---+ | potassium chloride SR (K-DUR) | Given | 11/12/19 | 60 mEq | | | | tablet 60 mEq 60 mEq, oral, | | 16 11:37 | | | | | ONCE, 1 dose, 11/12/15 at 1115 | | AM PDT | | | | + +-------+ +--------+---+---+ +---+---+ | | | +---+---+ + +-------+ +--------+---+---+ | potassium chloride SR (K-DUR) | Given | 11/13/19 | 60 mEq | | | | tablet 60 mEq 60 mEq, oral, | | 16 9:27 | | | | | ONCE, 1 dose, [facility] 11/13/15 at 0845 | | AM PDT | | | | + +-------+ +--------+---+---+ +---+---+ | | | +---+---+ + +-------+ +--------+---+---+ | potassium chloride SR (K-DUR) | Given | 11/14/19 | 60 mEq | | | | tablet 60 mEq 60 mEq, oral, | | 16 9:51 | | | | | ONCE, 1 dose, [place] 11/14/15 at 0845 | | AM PDT | | | | + +-------+ +--------+---+---+ +---+---+ | | | +---+---+ + +-------+ +--------+---+---+ | potassium chloride SR (K-DUR) | Given | 11/16/19 | 60 mEq | | | | tablet 60 mEq 60 mEq, oral, | | 16 6:05 | | | | | ONCE, 1 dose, 11/16/15 at 1730 | | PM PDT | | | | + +-------+ +--------+---+---+ +---+---+ | | | +---+---+ + +-------+ +---------+---+---+ | senna-docusate (SENOKOT S) | Given | 11/21/19 | 2 | | | | 8.6-50 mg 2 tablet 2 tablet, | | 16 9:33 | tablets | | | | oral, TWICE DAILY, First dose on | | AM PDT | | | | | 11/07/15 at 2345, Until | | | | | | | Discontinued | | | | | | + +-------+ +---------+---+---+ +-------+ +---------+---+---+ | Given | 11/19/19 | 2 | | | | | 16 11:27 | tablets | | | | | PM PDT | | | | +-------+ +---------+---+---+ | Given | 11/19/19 | 2 | | | | | 16 10:10 | tablets | | | | | AM PDT | | | | +-------+ +---------+---+---+ +---+---+ | | | +---+---+ + +---------+ +------+---+---+ | sulfur hexafluoride | New Bag | 11/07/19 | 5 mL | | | | microspheres (LUMASON) IV 1-2 mL | | 16 2:06 | | | | | 1-2 mL, intravenous, PROCEDURE | | PM PDT | | | | | ONCE, 1 dose, Thu11/07/15 at 1415 | | | | | | + +---------+ +------+---+---+ +---+---+ | | | +---+---+ + +-------+ +------+---+---+ | SUMAtriptan (IMITREX) injection | Given | 11/07/19 | 6 mg | | | | 6 mg 6 mg, subcutaneous, ONCE, | | 16 8:30 | | | | | 1 dose, Thu11/07/15 at 0845 | | AM PDT | | | | + +-------+ +------+---+---+ +---+---+ | | | +---+---+ + +-------+ +-------+---+---+ | thyroid tablet 30 mg 30 mg, | Given | 11/21/19 | 30 mg | | | | oral, DAILY, First dose on Thu | | 16 9:33 | | | | | 11/07/15 at 0900, Until | | AM PDT | | | | | Discontinued | | | | | | + +-------+ +-------+---+---+ +-------+ +-------+---+---+ | Given | 11/20/19 | 30 mg | | | | | 16 9:42 | | | | | | AM PDT | | | | +-------+ +-------+---+---+ | Given | 11/19/19 | 30 mg | | | | | 16 10:09 | | | | | | AM PDT | | | | +-------+ +-------+---+---+ +---+---+ | | | +---+---+ + +-------+ +--------+---+---+ | topiramate (TOPAMAX) tablet 200 | Given | 11/21/19 | 200 mg | | | | mg 200 mg, oral, TWICE DAILY, | | 16 9:33 | | | | | First dose on Thu11/07/15 at | | AM PDT | | | | | 0900, Until Discontinued | | | | | | + +-------+ +--------+---+---+ +-------+ +--------+---+---+ | Given | 11/20/19 | 200 mg | | | | | 16 9:40 | | | | | | PM PDT | | | | +-------+ +--------+---+---+ | Given | 11/20/19 | 200 mg | | | | | 16 9:41 | | | | | | AM PDT | | | | +-------+ +--------+---+---+ +---+---+ | | | +---+---+ + +-------+ +-------+---+---+ | torsemide (DEMADEX) tablet 60 | Given | 11/18/19 | 60 mg | | | | mg 60 mg, oral, TWICE DAILY | | 16 6:36 | | | | | (DIURETIC), First dose on Thu | | AM PDT | | | | | 11/17/15 at 1200, Until | | | | | | | Discontinued | | | | | | + +-------+ +-------+---+---+ +-------+ +-------+---+---+ | Given | 11/17/19 | 60 mg | | | | | 16 1:39 | | | | | | PM PDT | | | | +-------+ +-------+---+---+ +---+---+ | | | +---+---+ + +-------+ +-------+---+---+ | torsemide (DEMADEX) tablet 80 | Given | 11/20/19 | 80 mg | | | | mg 80 mg, oral, DAILY, First | | 16 1:26 | | | | | dose (after last modification) on | | PM PDT | | | | | 11/19/15 at 1600, Until | | | | | | | Discontinued | | | | | | + +-------+ +-------+---+---+ +-------+ +-------+---+---+ | Given | 11/19/19 | 80 mg | | | | | 16 4:27 | | | | | | PM PDT | | | | +-------+ +-------+---+---+ +---+---+ | | | +---+---+ + +-------+ +-------+---+---+ | torsemide (DEMADEX) tablet 80 | Given | 11/21/19 | 80 mg | | | | mg 80 mg, oral, TWICE DAILY | | 16 6:35 | | | | | (DIURETIC), First dose (after | | AM PDT | | | | | last modification) on Thu11/21/15 | | | | | | | at 0700, Until Discontinued | | | | | | + +-------+ +-------+---+---+ +---+---+ | | | +---+---+ + +---------+ + +---+---+ | vancomycin (VANCOCIN) IV 1,500 | New Bag | 11/07/19 | 1,500 mg | | | | mg 1,500 mg, intravenous, EVERY | | 16 3:42 | | | | | 8 HOURS, First dose on Thu | | AM PDT | | | | | 11/07/15 at 0400, Until | | | | | | | Discontinued | | | | | | + +---------+ + +---+---+ +---+---+ | | | +---+---+ + +---------+ + +---+---+ | vancomycin (VANCOCIN) IV 2,000 | New Bag | 11/06/19 | 2,000 mg | | | | mg 2,000 mg, intravenous, ONCE, | | 16 9:19 | | | | | 1 dose, [facility] 11/06/15 at 2115 | | PM PDT | | | | + +---------+ + +---+---+ +---+---+ | | | +---+---+ + +-------+ +-------+---+---+ | warfarin (COUMADIN) tablet 10 | Given | 11/12/19 | 10 mg | | | | mg 10 mg, oral, EVERY EVENING, | | 16 8:52 | | | | | First dose (after last | | PM PDT | | | | | modification) on 11/11/15 at | | | | | | | 2100, Until Discontinued | | | | | | + +-------+ +-------+---+---+ +-------+ +-------+---+---+ | Given | 11/11/19 | 10 mg | | | | | 16 9:10 | | | | | | PM PDT | | | | +-------+ +-------+---+---+ +---+---+ | | | +---+---+ + +-------+ +-------+---+---+ | warfarin (COUMADIN) tablet 10 | Given | 11/20/19 | 10 mg | | | | mg 10 mg, oral, EVERY EVENING, | | 16 9:39 | | | | | First dose (after last | | PM PDT | | | | | modification) on 11/18/15 at | | | | | | | 2100, Until Discontinued | | | | | | + +-------+ +-------+---+---+ +-------+ +-------+---+---+ | Given | 11/19/19 | 10 mg | | | | | 16 11:27 | | | | | | PM PDT | | | | +-------+ +-------+---+---+ | Given | 11/18/19 | 10 mg | | | | | 16 9:58 | | | | | | PM PDT | | | | +-------+ +-------+---+---+ +---+---+ | | | +---+---+ + +-------+ +---------+---+---+ | warfarin (COUMADIN) tablet 12.5 | Given | 11/15/19 | 12.5 mg | | | | mg 12.5 mg, oral, EVERY | | 16 10:19 | | | | | EVENING, First dose (after last | | PM PDT | | | | | modification) on Thu11/13/15 at | | | | | | | 2100, Until Discontinued | | | | | | + +-------+ +---------+---+---+ +-------+ +---------+---+---+ | Given | 11/14/19 | 12.5 mg | | | | | 16 9:00 | | | | | | PM PDT | | | | +-------+ +---------+---+---+ | Given | 11/13/19 | 12.5 mg | | | | | 16 10:05 | | | | | | PM PDT | | | | +-------+ +---------+---+---+ +---+---+ | | | +---+---+ + +-------+ +-------+---+---+ | warfarin (COUMADIN) tablet 15 | Given | 11/17/19 | 15 mg | | | | mg 15 mg, oral, EVERY EVENING, | | 16 8:20 | | | | | First dose (after last | | PM PDT | | | | | modification) on Thu11/16/15 at | | | | | | | 2100, Until Discontinued | | | | | | + +-------+ +-------+---+---+ +-------+ +-------+---+---+ | Given | 11/16/19 | 15 mg | | | | | 16 10:15 | | | | | | PM PDT | | | | +-------+ +-------+---+---+ +---+---+ | | | +---+---+ + +-------+ +------+---+---+ | warfarin (COUMADIN) tablet 5 mg | Given | 11/08/19 | 5 mg | | | | 5 mg, oral, EVERY EVENING, | | 16 9:41 | | | | | First dose on Thu11/07/15 at | | PM PDT | | | | | 2100, Until Discontinued | | | | | | + +-------+ +------+---+---+ +-------+ +------+---+---+ | Given | 11/07/19 | 5 mg | | | | | 16 9:06 | | | | | | PM PDT | | | | +-------+ +------+---+---+ +---+---+ | | | +---+---+ + +-------+ +--------+---+---+ | warfarin (COUMADIN) tablet 7.5 | Given | 11/10/19 | 7.5 mg | | | | mg 7.5 mg, oral, EVERY EVENING, | | 16 9:06 | | | | | First dose (after last | | PM PDT | | | | | modification) on Thu11/09/15 at | | | | | | | 2100, Until Discontinued | | | | | | + +-------+ +--------+---+---+ +-------+ +--------+---+---+ | Given | 11/09/19 | 7.5 mg | | | | | 16 8:36 | | | | | | PM PDT | | | | +-------+ +--------+---+---+ +---+---+ | | | +---+---+ documented in this encounter
--- OUTSIDE RECORDS SUMMARY | ~2019-12-02 | XMS | Encounter Summary ---
Demographics + + + | Address | [address] | | | [place] [address] | + + + | Home Phone [...] + | Katalina Padilla | ECON | [address] | | | | | [place], [place] | | | | | [address] | | + + + + + | Ellie Vang | ECON | Unknown | | + + + + + Care Team Providers + +------+ + | Care Manager House Name | Role | Phone | + [...] | | | | | | [address] [place], [place] | | | | | | [address] | | | | | | [phone] | | | +--------+ + + + [...] | | | | | | [place], [place] | | | | | | [address] | | | | | | [phone] | | | | | | | | +--------+---------+ + + + documented as of this encounter Visit Diagnoses Not on filedocumented in this encounter"
--- OUTSIDE RECORDS SUMMARY | ~2019-12-02 | XMS | Encounter Summary ---
Demographics + + + | Address | [address] | | | [place] [address] | + + + | Home Phone [...] + | Katalina Padilla | ECON | [address] | | | | | [place], [place] | | | | | [address] | | + + + + + | Ellie Vang | ECON | Unknown | | + + + + + Care Team Providers + +------+ + | Care Casting Tester Name | Role | Phone | + +------+ + | Kenyatta Cardenas MD | PCP | | + +------+ + Encounter Details +--------+ + + + + | Date | Type | Department | Care Team | Description | +--------+ + + + + | 06/12/ | Documentati | [facility] Clinic, Surgery | | | 2016 | on | Center at [place] [id number] | | | | | | Jacy Flannery | | | | | | Mailcode: [place] | | | | | | for [facility] and | | | | | | [facility] | | | | | | [place], [place] | | | | | | [address] | | | | | | [phone] | | | +--------+ + + + [...] 2019 | Visit | | [address] | | | | | | [place], [place] | | | | | | [address] | | | | | | [phone] | | | | | | | | +--------+---------+ + + + documented as of this encounter Visit Diagnoses Not on filedocumented in this encounter"
--- OUTSIDE RECORDS SUMMARY | ~2019-12-02 | XMS | Encounter Summary ---
Demographics + + + | Address | [address] | | | [place] [address] | + + + | Home Phone [...] + | Katalina Padilla | ECON | [address] | | | | | [place], [place] | | | | | [address] | | + + + + + | Ellie Vang | ECON | Unknown | | + + + + + Care Team Providers + +------+ + | Care Electric Detector Operator Name | Role | Phone | [...] Closed | | Gastroenterol | Diagnoses | Dannie, | [facility] | | | | ogy | History of | Ion Colvin MD | [facility] [address] | | | | | [place] | [address] | | | | | gastric | Ave | Mailcode: | | | | | bypass | [place], [place] | [facility] | | | | | Nausea and | [address] | for Health | | | | | vomiting, | Phone: | and Healing, | | | | | intractabili | | [address] | | | | | ty of | Fax: | [place], [place] | | | | | vomiting not | [phone] | [address] | | | | | specified, | | Phone: | | | | | unspecified | | [phone] | | | | | vomiting | | Fax: | | | | | type | | [phone] | | | | | Decreased | | | | | | | oral intake | | | | | | | Dehydration | | | | | | | Procedures | | | | | | | CONSULT TO | | | | | | | GI | | | | | | | PROCEDURE | | | | | | | UNIT: EGD W | | | | | | | DILATION [place] | | | | | | | UPPER GI | | | | | | | ENDOSCOPY,BI | | | | | | | OPSY [place] UP | | | | | | | GI | | | | | | | ENDOSCOPY,BA | | | | | | | LL DIL,30MM | | | +--------+--------+ + + + + Encounter Details +--------+ + + + + | Date | Type | Department | Care Team | Description | +--------+ + + + + | 04/29/ | Telephone | Dig[facility]ive [facility] | Ion Pandey Vinicius, | | | 2017 | | [facility] at [facility] [address] | MD [address] | | | | | [address] | [place], [place] | | | | | Mailcode: [place] | [phone] | | | | | [facility] and | | | | | | [place] [address] | | | | | | [place], [place] | | | | | | [address] | | | | | | [phone] | | | +--------+ + + + [...] | 03/15/ | Office | Cardiology | TinyRandell brown, | | | 2019 | Visit | | MD [address] | | | | | | [place], [place] | | | | | | [address] | | | | | | [phone] | | | | | | | | +--------+---------+ + + + documented as of this encounter Visit Diagnoses + + | Diagnosis | + + | 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
--- OUTSIDE RECORDS SUMMARY | ~2019-12-02 | XMS | Encounter Summary ---
Demographics + + + | Address | [address] | | | [place] [address] | + + + | Home Phone | | + + + | Preferred Language | Unknown | + + + | Marital Status | | + + + | Denominational Affiliation | Unknown | + + + | Race | Unknown | + + + | Ethnic Group | Unknown | + + + Author + + + | Author | [facility] | | | and [place] | + + + | Organization | [facility] | | | and [place] | [...] + +------+ + | Care Special Education Teacher Name | Role | Phone | + +------+ + PCP | Unavailable | + +------+ + Reason for Referral Evaluate & Treat (Routine) +--------+ + + + + + | Status | Reason | Specialty | Diagnoses / | Referred By | Referred To | | | | | Procedures | Contact | Contact | +--------+ + + + + + | Closed | Specialty | Pulmonary | Diagnoses | [place], | [facility] | | | Services | Disease | Chronic | [facility], | [facility] | | | Required | | diastolic | [facility] [address] | SLEEP | | | | | heart | [place] | DISORDERS LAB | | | | | failure | DMITRI F | [address] | | | | | (HCC) | [place], [place] | [address] | | | | | History of | [address] | [place], [place] | | | | | sinus | Phone: | [phone] | | | | | tachycardia | [phone] | Phone: | | | | | History of | Fax: | [phone] | | | | | bariatric | [phone] | Fax: | | | | | surgery | | [phone] | | | | | Sleep apnea | | | | | | | with use of | | | | | | | continuous | | | | | | | positive | | | | | | | airway | | | | | | | pressure | | | | | | | (CPAP) | | | | | | | Morbid | | | | | | | obesity with | | | | | | | alveolar | | | | | | | hypoventilat | | | | | | | ion (HCC) | | | | | | | Type 2 | | | | | | | diabetes | | | | | | | mellitus | | | | | | | without | | | | | | | complication | | | | | | | , with | | | | | | | long-term | | | | | | | current use | | | | | | | of insulin | | | | | | | (HCC) | | | +--------+ + + + + + + + | Scheduling Instructions | + + | Sleep Study as well | + + Reason for Visit + + + | Reason | Comments | + + + | Follow-up, Office | 3 month | | Visit | | + + + Encounter Details +--------+---------+ + + + | Date | Type | Department | Care Team | Description | +--------+---------+ + + + | 04/28/ | Office | [facility] | Sulema Altamirano | Chronic diastolic | | 2019 | Visit | CARDIOLOGY [place] | [address] | heart failure (HCC) | | | | [address] | [place] | (Primary Dx); | | | | [address] | [place] [address] | History of sinus | | | | [place], [place] | [phone] | tachycardia; History | | | | [address] | | of stroke; HTN, | | | | [phone] | | goal below 130/80; | | | | | | Hypokalemia; History | | | | | | of bariatric | | | | | | surgery; Sleep apnea | | | | | | with use of | | | | | | continuous positive | | | | | | airway pressure | | | | | | (CPAP); Morbid | | | | | | obesity with | | | | | | 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 | | | | | | (HCC); Type 2 | | | | |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 | | | | | | without | | | | | | complication, with | | | | | | long-term current | | | | | | use of insulin | | | | | | (HCC); Mixed | | | | | | hyperlipidemia; | | | | | | Personal history of | | | | | | DVT (deep vein | | | | | | thrombosis); History | | | | | | of pulmonary | | | | | | embolism | +--------+---------+ + + + Social History [...] + + + | Blood Pressure | 130/76 | 04/28/2019 12:56 PM | | | | | PDT | | + + + + + | Pulse | 76 | 04/28/2019 12:56 PM | | | | | PDT | | + + + + + | Temperature | - | - | | + + + + + | Respiratory Rate | - | - | | + + + + + | Oxygen Saturation | 99% | 04/28/2019 12:56 PM | | | | | PDT | | + + + + + | Inhaled Oxygen | - | - | | | Concentration | | | | + + + + + | Weight | 123.3 kg (271 lb | 04/28/2019 12:56 PM | | | | 12.8 oz) | PDT | | + + + + + | Height | 147.3 cm (4' 10") | 04/28/2019 12:56 PM | | | | | PDT | | + + + + + | Body Mass Index | 56.81 | 04/28/2019 12:56 PM | | | | | PDT | | + + + + + documented in this encounter Patient Instructions Patient Instructions Sulema Altamirano FNP - 04/28/2019 1:00 PM PDTI have referred you to Dr. Rascon at [facility] , call [phone] for an appointment next week I made no changes to medications See me back in 6 months but sooner if needed documented in this encounter Progress Notes Sulema Altamirano FNP - 04/28/2019 1:00 PM PDTFormatting of this note might be differe nt from the original. Date of visit: 04/28/2019 Primary Care Physician: Kenyatta Cardenas MD CHIEF COMPLAINT: Chief Complaint Patient presents with Follow-up, Office Visit 3 month HISTORY OF PRESENT ILLNESS: Ms. Elzbieta Cristina is a 43-year-old woman who is here today for 6 month follow-up . Today, I reviewed all previous documentation available to me in electronic medical pilar rd and from external sources. 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 Fu, and SELINA Escobar. Her current and previous testing and procedures are detailed below. I had seen her last January 2019 and I had made no medication changes but had ordered her an echo, as still quickly fluid overloaded if she missed any diuretics. She reports today that she has been sick for 12 weeks with a headache, and diarrhea, and is also has bilateral ear infections. She received 1 round of antibiotics which were ineff ective and has been referred to an ENT, Dr. Wetzel on May 10. She also reports that s he was evaluated and does not have any stricture, which had previously given her nausea and vomiting, but has been told she has multiple ventral hernias, and will be seeing a surgeon a [facility] on May 05. In the meantime she has had difficulty with dehydration and keeping f ood down, and she receives IV fluids through PICC line 3 times per week and has also been tr eated with Phenergan. Unfortunately her PCP, Dr. Cardenas is still on maternity leave, and she has been seen by o [facility] providers who are covering for her. She reports today that she never heard from the [place] [facility] providers to her sup posed to follow-up with her about her sleep apnea, and would like to be referred back to Dr. Rascon again. She reports her PCP, Dr. Cardenas had placed the referral earlier, but she had n ever heard back from his clinic. Today she reports she has not felt well with her ongoing headache, nausea and vomiting a nd diarrhea, she has not had any palpitations, chest pain, dizziness, or syncope. She also reports her edema continues to be controlled with her daily diuretics. She denies any signs or symptoms of stroke or TIA. She reports she still has mild dyspnea with exertion, but much improved since I saw her la st, but reports she is now intolerant of her mother's secondhand smoke, and she is in the pr ocess of getting a place of her own, but has not gotten one yet. She continues to lose weight from her bypass surgery, and weight down 123 pounds since [facility] 2017 when weighed 394 lbs. She brought all of her medications to the clinic today. She reports she is not , and now on Mirena IUD, and has same sex partner , so no concerns with her beta lee. REVIEW OF SYSTEMS: Negative except for pertinent items noted in HPI. Constitutional: Reports mild ongoing fatigue slowly improving, denies unexplained weight lo ss.Naps in the day Appetite is good. weight down 123 pounds since September 2017 when weighed 394 lbs. Denies night sweats fevers or chills HENT: Denies nosebleeds. Denies hearing problems. Denies dysphagia Eyes: Denies hx glaucoma Denies visual disturbance or double vision. Denies history of ca taracts or macular degeneration. Respiratory/Sleep:: Sleep apnea on CPAP, previous problems with sinus con congestion improv ed with sinus surgery. Mild YO Denies cough Denies hemoptysis or excessive sputum product ion. Denies orthopnea, PND. Cardiovascular: History of lower extremity edema and lymphadenopathy, palpitations now rare with increased dose of atenolol. Denies chest pain, lower extremity edema Denies history of rheumatic fever. Denies claudication . Gastrointestinal: Frandy-en-Y gastric bypass surgery 02/2018,history of GERD. History diver ticulitis history, hernia abdominal wall, ventral hernia, previous nausea and vomiting reso lved with dilatation of gastric stricture 06/23/2018, but now having new nausea and vomiting requiring weekly IV hydration. Denies blood in stool. Genitourinary: Denies Hematuria., stress Urinary incontinence, history of kidney stone, o n Mirena for control Musculoskeletal: History of osteoarthritis, myalgias, neck pain, back pain, knee pain Skin: History of ongoing skin infection below pannus Denies color change. Neurological: History of stroke secondary to Bromocriptine. 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 Reports ne uropathy,Hx Migraines. denies dizziness, syncope. Denies focal motor deficits Hematological/Oncology: History of PE and deep vein thrombosis 2017 , treated with coumadin . Does not bruise/bleed easily. Denies history of cancer Endocrine: History of diabetes on insulin, hypothyroidism,followed by Dr. Franks, endocrin ologist at [facility]) . Denies excessive thirst or hunger. Psychiatric/Behavioral: History of bipolar disorder, anxiety, depression, insomnia Vaccines: Current on 2019 flu vaccine. Current on pneumonia vaccine. Habits/Social : Denies history of smoking, exposed to second hand smoke from mother who li ves with her. Denies EtOH use. Drinks 0 servings of caffeine daily . Denies illicit drug use. Exercises with walking , difficult with knee pain and hernia pain Lives in [facility] her mother who smokes. . Sister is pediatric care coordinator. Grandchildren ages 4 and 7 live with he r daughter and son-in-law. Disabled , on disability .01/24/2019: working with [employer] to get her own place. Outpatient Medications Prior to Visit Medication Sig Dispense Refill albuterol (PROAIR HFA) 90 mcg/puff inhaler ProAir HFA 90 mcg/actuation aerosol inhaler Inhale 2 puffs every 4 hours by inhalation route prn wheezing. ALPRAZolam (XANAX) 0.5 mg tablet Take 0.5-1 mg by mouth Twice daily as needed. Ascorbic Acid (VITAMIN C PO) Vitamin C OTC AD ascorbic acid (VITAMIN C) 500 MG tablet Take 1,000 mg by mouth Daily. ascorbic acid (VITAMIN C) 500 mg tablet ascorbic acid (vitamin C) 500 mg tablet 500 mg by oral route. aspirin 81 mg EC tablet Take 81 mg by mouth Daily. atenolol (TENORMIN) 25 mg tablet atenolol 25 mg tablet atenolol (TENORMIN) 50 mg tablet Take 50 mg by mouth nightly. atenolol (TENORMIN) 50 mg tablet atenolol 50 mg tablet Take 1 tablet every day by oral route. bupivacaine, PF, (MARCAINE PRESERVATIVE FREE) 0.25% SOLN Marcaine (PF) 0.25 % (2.5 mg/m L) injection solution Take 4 mL every day by injection route. buprenorphine (BELBUCA) [address] 600 mcg inside cheek every 12 hours. buprenorphine (BUTRANS) 20 mcg/hr patch Butrans 20 mcg/hour transdermal patch Apply 1 patch every week by transdermal route. for chronic leg pain. buprenorphine (SUBUTEX) 2 mg SUBL buprenorphine HCl [address] 1 tablet every day by sublingual route as needed. buprenorphine-naloxone (SUBOXONE) 2-0.5 mg SL film Suboxone 2 mg-0.5 mg sublingual film Jerjmwm-Mmuwytgsz-Ddnkqqc D (CITRACAL CALCIUM+D PO) Take 2 tablets by mouth 2 times filemon ly. chlorhexidine (PERIDEX) 0.12% solution chlorhexidine gluconate 0.12 % mouthwash clindamycin (CLEOCIN) 150 mg capsule clindamycin HCl 150 mg capsule clindamycin (CLEOCIN) 300 MG capsule clindamycin HCl 300 mg capsule cyanocobalamin (VITAMIN B-12) 1000 MCG tablet Take 1,000 mcg by mouth Every other day. cyclobenzaprine (FLEXERIL) 10 mg tablet cyclobenzaprine 10 mg tablet TAKE ONE TABLET BY MOUTH THREE TIMES DAILY NEEDED FOR MUSCLE SPASM FOR 10 DAYS digoxin (LANOXIN) 250 mcg tablet digoxin 250 mcg tablet 250 ugs by oral route. Docusate Sodium (DULCOLAX STOOL SOFTENER PO) Take 200 mg by mouth 2 times daily. docusate-senna (SENOKOT-S) 50-8.6 mg per tablet Take 1 tablet by mouth 2 times daily. enoxaparin (LOVENOX) 100 mg/mL injection Lovenox 100 mg/mL subcutaneous syringe 200 mg by sub-q route. enoxaparin (LOVENOX) 40 mg/0.4 mL injection enoxaparin 40 mg/0.4 mL subcutaneous syring e ergocalciferol (VITAMIN D-2) 50,000 units capsule Take 1 capsule by mouth every 7 days. ergocalciferol (VITAMIN D-2) 50,000 units capsule Vitamin D2 50,000 unit capsule ferrous gluconate (FERGON) 324 mg tablet Take 324 mg by mouth. ferrous sulfate 220 mg (44 mg elemental iron)/5 mL liquid ferrous sulfate 220 mg (44 mg iron)/5 mL oral solution Take 5 mL twice a day by oral route for anemia. fluticasone (FLONASE) 50 mcg/nasal spray fluticasone propionate 50 mcg/actuation nasal spray,suspension gabapentin (NEURONTIN) 300 mg capsule gabapentin 300 mg capsule HYDROcodone-acetaminophen (NORCO) 10-325 mg per tablet hydrocodone 10 mg-acetaminophen 325 mg tablet HYDROmorphone (DILAUDID) 2 mg tablet hydromorphone 2 mg tablet take 1 to 2 tablets by mouth every 4 to 6 hours if needed for pain hydrOXYzine hydrochloride (ATARAX) 25 mg tablet hydroxyzine HCl 25 mg tablet ibuprofen (ADVIL,MOTRIN) 800 MG tablet ibuprofen 800 mg tablet Take 1 tablet 3 times a day by oral route prn pain and inflammation. insulin - MIX insulin NPH-insulin regular 70/30 (HUMULIN 70/30) 100 units/mL injection Humulin 70/30 U-100 Insulin 50 U/D 1 IM BID AD insulin - MIX insulin NPH-insulin regular 70/30 (NOVOLIN 70/30) 100 units/mL injection Novolin 70/30 U-100 Insulin 100 unit/mL subcutaneous suspension insulin aspart (NOVOLOG) 100 units/mL injection Novolog U-100 Insulin aspart 100 unit/m L subcutaneous solution insulin detemir (LEVEMIR) 100 units/mL injection (vial) Levemir U-100 Insulin 100 unit/ mL subcutaneous solution insulin NPH (HUMULIN N, NOVOLIN N) 100 units/mL injection Novolin N NPH U-100 Insulin i sophane 100 unit/mL subcutaneous susp Insulin Pen Needle (NOVOFINE) 32G X 6 MM [facility] Novofine 32 32 gauge x 1/4" needle ketorolac (TORADOL) 10 MG tablet Toradol 10 mg tablet Take 1 tablet 3 times a day by oral route prn dysmenorrhea. ketorolac (TORADOL) 60 mg/2 mL SOLN ketorolac 60 mg/2 mL intramuscular solution Inject 2 mL every day by intramuscular route x 1. lidocaine 10 mg/mL IV syringe lidocaine 10 mg/mL (1 %) injection solution Take 4 mL every day by injection route. lurasidone (LATUDA) 20 mg tablet Take 40 mg by mouth Daily. magnesium oxide (MAG-OX) 400 mg tablet Take 400 mg by mouth Daily. magnesium oxide (MAG-OX) 400 mg tablet magnesium oxide 400 mg (241.3 mg magnesium) tabl et TAKE 1 TABLET BY MOUTH ONCE DAILY meclizine (ANTIVERT) 25 mg tablet Take 25 mg by mouth every morning. metFORMIN (GLUCOPHAGE) 1000 MG tablet metformin 1,000 mg tablet TAKE ONE TABLET BY MOUTH TWICE DAILY methylPREDNISolone (MEDROL) 4 mg tablet methylprednisolone 4 mg tablets in a dose pack methylPREDNISolone sodium succinate (SOLU-MEDROL) 62.5 mg/mL injection Solu-Medrol (PF) 125 mg/2 mL solution for injection Take 125 mg every day by injection route. Multiple Vitamins-Minerals (MULTIVITAMIN WITH MINERALS) tablet Take 2 tablets by mouth Daily. mupirocin (BACTROBAN) 2% ointment mupirocin 2 % topical ointment naproxen sodium (ANAPROX) 550 MG tablet naproxen sodium 550 mg tablet take 1 tablet by mouth twice a day if needed nitrofurantoin (MACROBID) 100 mg capsule nitrofurantoin monohydrate/macrocrystals 100 m g capsule nystatin (NYSTATIN) 576570 UNIT/GM powder Nyamyc 100,000 unit/gram topical powder OLANZapine (ZYPREXA) 15 MG tablet olanzapine 15 mg tablet TAKE 2 TABLETS BY MOUTH AT BEDTIME omeprazole (PRILOSEC) 20 mg capsule omeprazole 20 mg capsule,delayed release ondansetron (ZOFRAN ODT) 4 mg disintegrating tablet ondansetron 4 mg disintegrating tab let ondansetron (ZOFRAN ODT) 8 mg disintegrating tablet ondansetron 8 mg disintegrating tab let oxyCODONE (OXYCONTIN) 30 mg ER abuse-deterrent tablet oxycodone ER 30 mg tablet,crush r esistant,extended release 12 hr Take 1 tablet every 12 hours by oral route. for pain oxyCODONE (ROXICODONE) 5 mg tablet oxycodone 5 mg tablet oxyCODONE-acetaminophen (PERCOCET) 5-325 mg per tablet Percocet 5 mg-325 mg tablet Take 1 tablet every 6 hours by oral route prn pain. PARoxetine (PAXIL) 10 mg tablet Take 40 mg by mouth Daily. PARoxetine (PAXIL) 20 mg tablet Paxil 20 mg tablet Take 2 tablets every day by oral route. phentermine (ADIPEX-P) 37.5 mg tablet Take 1 tablet by mouth every morning. piroxicam (FELDENE) 10 mg capsule piroxicam 10 mg capsule TAKE ONE CAPSULE BY MOUTH ONCE DAILY WITH FOOD polyethylene glycol (MIRALAX) powder polyethylene glycol 3350 17 gram/dose oral powder potassium chloride (KLOR-CON M20) 20 mEq ER tablet Klor-Con M20 mEq tablet,extended rel ease potassium chloride (KLOR-CON) 20 MEQ packet Take 20 mEq by mouth 2 times daily. potassium chloride 20 mEq CR tablet potassium chloride ER 20 mEq tablet,extended releas e TAKE Two TABLETS BY MOUTH 2 TIMES DAILY POTASSIUM PO potassium OTC AD pramipexole (MIRAPEX) 0.125 MG tablet pramipexole 0.125 mg tablet-2 tablets qhs pramipexole (MIRAPEX) 0.125 MG tablet Take by mouth. promethazine (PHENERGAN) 25 mg tablet promethazine 25 mg tablet 1/2 tab PO QD PRN promethazine (PHENERGAN) 25 mg/mL (IV ONLY) injection promethazine 25 mg/mL injection s olution Take 25 mL every day by injection route. pseudoePHEDrine (SUDOGEST 12 HOUR) 120 mg 12 hr tablet Sudogest 12-hour 120 mg tablet,e xtended release TAKE ONE TABLET BY MOUTH EVERY 12 HOURS NEEDED raNITIdine (ZANTAC) 150 mg tablet ranitidine 150 mg tablet simethicone (MYLICON) 80 mg chewable tablet Gas Relief 80 mg chewable tablet SODIUM FLUORIDE, DENTAL, (SF 5000 PLUS) 1.1 % CREA SF 5000 Plus 1.1 % dental cream spironolactone (ALDACTONE) 100 MG tablet spironolactone 100 mg tablet spironolactone (ALDACTONE) 50 mg tablet Take 50 mg by mouth Daily. spironolactone (ALDACTONE) 50 mg tablet spironolactone 50 mg tablet thyroid (ARMOUR THYROID) 30 mg tablet Take 30 mg by mouth Daily. thyroid (CATEGORY DEVELOPMENT MANAGER THYROID) 30 mg tablet CATEGORY DEVELOPMENT MANAGER Thyroid 30 mg tablet TAKE ONE TABLET BY MOUTH ONCE DAILY tiZANidine (ZANAFLEX) 2 MG tablet tizanidine 2 mg tablet TAKE ONE TO TWO TABLETS BY MOUTH AT BEDTIME NEEDED FOR MUSCLE SPASM topiramate (TOPAMAX) 200 MG tablet Take two tablets by mouth twice daily topiramate (TOPAMAX) 50 MG tablet topiramate 50 mg tablet Take 2 tablets twice a day by oral route. torsemide (DEMADEX) 100 mg tablet Take 100 mg by mouth 2 times daily. torsemide (DEMADEX) 100 mg tablet torsemide 100 mg tablet traZODone (DESYREL) 150 MG tablet trazodone 150 mg tablet TAKE 1 TABLET BY MOUTH AT BEDTIME FOR SLEEP UNABLE TO FIND Calcium 600 with Vitamin D3 600 mg (1,500 mg)-400 unit capsule OTC AD UNABLE TO FIND cyanocobalamin (vit B-12) 1,000 mcg/mL injection solution Inject 1 mL every month by intramuscular route. ursodiol (ACTIGALL) 300 mg capsule ursodiol 300 mg capsule warfarin (COUMADIN) 6 MG tablet warfarin 6 mg tablet No facility-administered medications prior to visit. PHYSICAL EXAM: Wt Readings from Last 3 Encounters: 04/28/19 123.3 kg (271 lb 12.8 oz) 02/15/19 123.9 kg (273 lb 2.4 oz) 04/21/16 (!) 184.5 kg (406 lb 12.8 oz) Temp Readings from Last 3 Encounters: 02/15/19 36.7 C (98 F) (Temporal) 04/21/16 36.4 C (97.6 F) BP Readings from Last 3 Encounters: 04/28/19 130/76 02/15/19 140/86 04/21/16 131/79 Pulse Readings from Last 3 Encounters: 04/28/19 76 02/15/19 92 04/21/16 111 Vital signs: 01/24/2019: WT 274 LB. BP: 108/70 HR: 80 Vital signs: 12/15/2018. WT 284 LB. BP 106/78 HR 75 Vital signs: 07/29/2018. WT 310 LB. BP 122/72 HR 86 GENERAL: Morbidly obese , in no distress. Appears approximately stated age. HEENT: Normocephalic, atraumatic. EYES: PERRL, EOM normal. MOUTH: Oral mucosae moist, dentition adequate, no lesions noted. Pierced tongue NECK: No JVD, lymphadenopathy, thyromegaly, bruits. Carotid pulses are 2+ bilaterally LUNGS: Clear bilaterally, with no rales, rhonchi or wheezing noted, respirations unlabored HEART: Nondisplaced PMI, fast regular rate and rhythm, S1, S2 normal. No murmurs, rubs o r gallops noted. ABDOMEN: Large pannus , surgical scar.Soft, nontender, no organomegaly, masses or bruits. Bowel sounds are normal in all 4 quadrants. The abdominal aortic pulsation is not palpable . EXTREMITIES: No pedal Edema. Radial pulses 2+ bilaterally. Femoral pulses are 2+ bilat erally without bruits. DP and PT pulses are 2+ bilaterally. No clubbing. Ambulates slowly . PICC line to right upper arm SKIN: Warm and dry, capillary refill is normal, no lesions. Tattoos , right hand, Large a lucas of loose skin to abd/legs. NEUROLOGIC: Awake, alert and oriented x 3. No focal motor or sensory deficits. PSYCHIATRIC: Appropriate, affect appears normal DATA: Blood tests: Lab Results Component Value Date WBC 11.1 (A) 12/07/2018 RBC 5.00 12/07/2018 HGB 14.6 12/07/2018 PLT 298 12/17/2018 Lab Results Component Value Date NA 141 12/07/2018 K 4.2 12/07/2018 CL 100 12/07/2018 CO2 31 12/07/2018 ANIONGAP 14.2 12/07/2018 GLUF 84 12/07/2018 BUN 16 12/17/2018 BCR 13.6 12/07/2018 EGFR 71 12/07/2018 Lab Results Component Value Date GLUF 84 12/07/2018 No results found for: BNP, TSH, CRP No results found for: TOTEPI CARDIAC PROCEDURES/IMAGING ECHO: Last: 02/22/2019: ([facility]). Sinus rhythm. Technically adequate study. EF 65-70%. LV normal in size and wall thickness, no regional wall motion abnormalities. Normal diastolic functio n. RV normal in size and function. Normal size atria. Aortic valve trileaflet, mildly olga lidia cified, no AI or stenosis. Normal mitral valve, tricuspid valve normal, pulmonary pressures not assessed due to absence of TR jet. Pulmonic valve not well visualized. No pericardial pleural effusion. IVC WNL, CVP 5-10. Ascending aorta not well seen Echo: 02/16/2017: ([facility]): normal EF of 60-65% , accurate assessment of diastolic function i mpeded by poor tissue doppler, RV normal in size and function, with no significant valvular disease, and aortic root, ascending aorta , and aortic arch normal Echo: 01/02/2016 ([facility]): TDS, cardiac chamber dimensions grossly NML, LVEF >70%, rodriguez tolic function normal for patient. Unable to assess segmental wall motion. RV grossly norm al. Aortic valve sclerotic, no As/AI. Mitral and tricuspid valves grossly normal. Trace T R. No pericardial effusion VASCULAR TESTING AND PROCEDURES Left lower extremity DVT, presumed PE: 10/2015 [facility]. treated with heparin drip and Coumadin 10 in hospital, with Coumadin 6 months as outpatient, ASA 81 mg continued Venous US: right leg, 04/28/2016: No evidence of DVT. EKG EKG 10/27: ([facility]) Normal sinus rhythm. Normal EKG. Rate 93 bpm, HI 172 ms, QRS 90 ms, QTC 465 ms personally reviewed by me in the office today) EK02/05: Sinus tachycardia, otherwise normal. Rate 160 bpm, HI 174 ms, QRS 74 ms, QTC 451 ms (personally reviewed by me in the office today and no significant change seen fro m EKG done in October 2016 except for faster heart rate) EK04/26/2018: Normal sinus rhythm, rate 74 bpm, HI 182 ms, QRS 96 ms, QTC 472 ms, tracin g personally reviewed by me, and compared to previous EKG, heart rate is now better controll ed, otherwise similar morphology EK04/28/2019: Normal sinus rhythm, right axis. Rate 74 bpm, HI 170 ms, QRS 88 ms, QTC 45 0 ms . Tracing personally reviewed by me, and similar morphology to previous EKG except for better tracing, and heart rate remains well controlled LABS; Labs: 2016: TSH 3.19, total cholesterol 175, VLDL 50, LDL 91, HDL 34, triglycerides 2 48, non-HDL cholesterol 141, glucose 170, BUN 12, creatinine 0.79, GFR >60, sodium 140, pota ssium 3.7, chloride 108, corrected calcium 10.3, total bilirubin 0.3, total protein 8.3, alb umin 3.4, alk phos 119, AST 16, ALT 25 Labs: 2016: Sodium 139, potassium 4.2, chloride 102, glucose 107, BUN 13, creatinine 0.91, GFR 69 Labs: 01/14: Sodium 138, potassium 4.3, chloride 103, glucose 138, BUN 14, creatinine 0.89, GFR 71 Labs: 04/01/2017: NA 139 ,K 3.8 CL 103,GL 120,BUN 13, CR 0.9, GFR 69. WBC 11.6 RBC 6.33 HG B 13.3 HCT 41.9 Lipids: 11/20/2017:Lipids: ( no statin) Total cholesterol 143, VLDL 37, LDL 60, HDL 38, tot al triglycerides 184, non-HDL cholesterol 105 Labs: 02/22/2018: CBC: RBC 5.12, hemoglobin 14.3, hematocrit 44.5, platelets 279. Hemoglobi n A1c 7.1. CMP: Glucose 1:30, BUN 25, creatinine 0.93, GFR >60, sodium 138, potassium 3.5, chloride 106, total bilirubin 0.5, albumin 3.3, alk phos 109, AST 20, ALT 29 Labs: 06/22/2018: CMP: Sodium 139, potassium 4, chloride 97, glucose 102, BUN 12, creatinin e 0.76, GFR 84, AST 22, ALT 17, alk phos 113, total bilirubin 0.6, albumin 3.3. Hemoglobin A1c 6 (126). Vitamin B12 1239, folate 13.49, fasting insulin 16.3, hep C negative Labs: 07/26/2018: Lipids: ( no statin) Cholesterol 124, triglycerides 149, HDL 39, LDL 55, VLDL 30, ratio 3.2, non-HDL cholesterol 85. CMP: Sodium 140, potassium 3.7, chloride 100, g lucose 100, BUN 11, creatinine 0.7, AST 19, ALT 14, alk phos 118, total bilirubin 0.6, CO2 2 6, GFR 92, albumin 3.3. Magnesium: 1.8 Labs: 10/12/2018:([facility]) CMP: Glucose 103, BUN 9, creatinine 0.7, GFR >60, sodium 140, potass ium 3.7, chloride 109, total bili 0.5, albumin 3.1, alk phos 147, AST 26, ALT 26 PTH 265. C BC: WBC 11.64, RBC 5.13, hemoglobin 14.8, hematocrit 46.1, platelets 227. Vitamin B12 1083. INR 1 Labs: 12/07/2018: Renal function: Glucose 84, BUN 12, creatinine 0.88, albumin 3.9, sodium 1 41, potassium 4.2, chloride 100, GFR 71. CBC: BBC 11.1, RBC 5, hemoglobin 14.6, hematocrit 44.3, platelets 330 magnesium 1.8 Labs: 12/14/2018: Vitamin B12 >2000. Platelets 298 .blood work for liver fibrosis and cirrh osis and necroinflammatory activity.:( low) Alpha-2 microglobulin 284, Alanine aminotran: 18, Aspertate aminotr 22, GGT 15, BUN 16, platelets 298 prothrombin index 97, fibrometer sco re 0.17,fibrosis score 0.26 Cirrhometer score 0 , Inflameter score 0.26, inflameter classA0/ A1 Labs: 04/09/2019: CMP: Sodium 138, potassium 3.6, chloride 103, glucose 118, BUN 21, creatin ine 0.96, GFR 64, AST 15, ALT 16, alk phos 116, total bili 0.4, albumin 4.2. Hemoglobin A1c 5.9 (123). Thyroid: TSH 0.848. Vitamin B12: 1904. CBC: WBC 12.9, RBC 5.10, hemoglobin 15 .2, hematocrit 46.4, platelets 306. ASSESSMENT & PLAN: She was here today to follow-up upon the results of her echo. She has problems as detailed below. her Echo performed in January as detailed above, and reports a normal EF of 65-70%, RV normal in size and function, no valvular abnormalities, and no pericardial effusion. Her EKG performed in the clinic today is detailed above, and shows stable normal sinus r hythm at 74 bpm. Her labs performed in March are detailed above and show a normal CMP except for mildly elevated glucose, hemoglobin A1c of 5.9, stable thyroid function, and normal CBC. I reviewed the results of her echo and EKG in detail with her, as well as her labs, and reassured her that despite her ongoing problems with nausea vomiting and headaches, that she seems to be well hydrated with getting IV fluids 3 times per week, and has not affected her heart or blood pressure. She also has remained asymptomatic for any racing heart rates or palpitations. I made no changes to her cardiac medications today, and she should continue on atenolol 50 mg nightly for heart rate control and palpitations, aspirin 81 mg daily with previous his tory of deep vein thrombosis and PE and stroke, potassium 40 mEq bid, magnesium 400 mg daily , spironolactone 50 mg daily and torsemide 100 mg bid for diastolic heart failure and severe lower extremity edema. From a cardiac point of view, she is stable, and no contraindication for any planned emerson jerrica from a cardiac point of view. She never heard from the sleep providers at the [facility] in [place], so I have referred her again to Dr. Rascon at the [facility], and she ne eds to have her CPAP settings evaluated and adjusted given the extreme amount of weight she has lost. I will see her back in 6 months, but sooner if needed. 1. Chronic diastolic heart failure (HCC) 2. History of sinus tachycardia 3. History of stroke 4. HTN, goal below 130/80 5. Hypokalemia 6. History of bariatric surgery 7. Sleep apnea with use of continuous positive airway pressure (CPAP) 8. Morbid obesity with alveolar hypoventilation (HCC) 9. Type 2 diabetes mellitus without complication, with long-term current use of insulin (HC C) 10. Mixed hyperlipidemia 11. Personal history of DVT (deep vein thrombosis) 12. History of pulmonary embolism Orders Placed This Encounter Procedures Ambulatory Referral to [facility]monology- Sleep study as well ECG 12 lead The following portions of the patient's history were personally reviewed by me and updated as appropriate: EKG tracings, other specialty provider and PCP notes,any Hospital admission and discharge summaries, any ER records , current and previous cardiac testing and procedure reports and d nickie, , medication bottles brought to visit today personally reviewed by me. Allergies, current medications.labs Family history, past medical history, past social history, past surgical history. Problem list. Maryse MARKS [facility] Cardiology 04/28/2019 docume nted in this encounter Plan of Treatment +--------+---------+ + + + | Date | Type | Specialty | Care Team | Description | +--------+---------+ + + + | 03/05/ | Office | Cardiology | Sulema Altamirano | | | 2019 | Visit | | [address] | | | | | | [address] | | | | | | [place] [address] | | | | | | [phone] | | | | | | | | +--------+---------+ + + + + + +--------+ + + | Name | Type | Priori | Associated Diagnoses | Order Schedule | | | | ty | | | + + +--------+ + + | Ambulatory Referral | Outpatient | Routin | Chronic diastolic | Ordered: 04/28/2019 | | to [facility] | Referral | e | heart failure (HCC) | | | Pulmonology- Sleep | | | History of sinus | | | study as well | | | tachycardia History | | | | | | of bariatric | | | | | | surgery Sleep apnea | | | | | | with use of | | | | | | continuous positive | | | | | | airway pressure | | | | | | (CPAP) Morbid | | | | | | obesity with | | | | | | 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 | | | | | | (HCC) Type 2 | | | | |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 | | | | | | without | | | | | | complication, with | | | | | | long-term current | | | | | | use of insulin (HCC) | | + + +--------+ + + documented as of this encounter Procedures + +--------+ + + + | Procedure Name | Priori | Date/Time | Associated Diagnosis | Comments | | | ty | | | | + +--------+ + + + | ECG 12 LEAD | Routin | 04/28/2019 | Chronic diastolic | Results for this | | | e | 1:27 PM | heart failure (HCC) | procedure are in the | | | | PDT | History of sinus | results section. | | | | | tachycardia History | | | | | | of stroke HTN, | | | | | | goal below 130/80 | | | | | | Hypokalemia History | | | | | | of bariatric | | | | | | surgery Sleep apnea | | | | | | with use of | | | | | | continuous positive | | | | | | airway pressure | | | | | | (CPAP) Morbid | | | | | | obesity with | | | | | | 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 | | | | | | (HCC) Type 2 | | | | |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 | | | | | | without | | | | | | complication, with | | | | | | long-term current | | | | | | use of insulin (HCC) | | | | | | Mixed | | | | | | hyperlipidemia | | | | | | Personal history of | | | | | | DVT (deep vein | | | | | | thrombosis) History | | | | | | of pulmonary | | | | | | embolism | | + +--------+ + + + documented in this encounter Results ECG 12 lead (04/28/2019 1:27 PM PDT) + + + + + + | Component | Value | Ref Range | Performed | Pathologist | | | | | At | Signature | + + + + + + | VENTRICULAR | 74 | BPM | [facility] | | | RATE EKG | | | | | + + + + + + | ATRIAL RATE | 74 | BPM | [facility] | | + + + + + + | P-R | 170 | ms | [facility] | | | INTERVAL | | | | | + + + + + + | QRS | 88 | ms | [facility] | | | DURATION | | | | | + + + + + + | Q-T | 406 | ms | [facility] | | | INTERVAL | | | | | + + + + + + | Q-T | 450 | ms | [facility] | | | INTERVAL | | | | | | (CORRECTED) | | | | | + + + + + + | P WAVE AXIS | 58 | degrees | [facility] | | + + + + + + | QRS AXIS | 91 | degrees | [facility] | | + + + + + + | T AXIS | 46 | degrees | [facility] | | + + + + + + | INTERPRETAT | Please refer to | | [facility] | | | ION TEXT | Providers office visit | | | | | | note for Providers | | | | | | Interpretation.Confirmed | | | | | | by [facility] [place] Read Only, | | | | | | [employer] [place] ([id number]), | | | | | | school photograph editor Glen Alberto | | | | | | ([phone]) on 04/28/2019 | | | | | | 2:43:53 PM | | | | + + + + + + + + | Specimen | + + | | + + + + + | Narrative | Performed At | + + + | | | + + + + +---------+ + + | Performing | Address | City/State/Zipcode | Phone Number | | Organization | | | | + +---------+ + + | [facility] | | | | + +---------+ + + documented in this encounter Visit Diagnoses + + | Diagnosis | + + | Chronic diastolic heart failure (HCC) - Primary Chronic diastolic heart failure | + + | History of sinus tachycardia Personal history of other diseases of circulatory system | + + | History of stroke Transient ischemic attack (TIA), and cerebral infarction without | | residual deficits | + + | HTN, goal below 130/80 Unspecified essential hypertension | + + | Hypokalemia Hypopotassemia | + + | History of bariatric surgery Bariatric surgery status | + + | Sleep apnea with use of continuous positive airway pressure (CPAP) | + + | Morbid obesity with alveolar hypoventilation (HCC) | + + | Type 2 diabetes mellitus without complication, with long-term current use of insulin | | (HCC) | + + | Mixed hyperlipidemia | + + | Personal history of DVT (deep vein thrombosis) Personal history of venous thrombosis | | and embolism | + + | History of pulmonary embolism Personal history of pulmonary embolism | + + documented in this encounter
--- OUTSIDE RECORDS SUMMARY | ~2019-12-02 | XMS | Encounter Summary ---
Demographics + + + | Address | [address] | | | [place] [address] | + + + | Home Phone | | + + + | Preferred Language | Unknown | + + + | Marital Status | | + + + | Restoration Affiliation | Unknown | + + + | Race | Unknown | + + + | Ethnic Group | Unknown | + + + Author + + + | Author | [facility] | | | and Jeffana | + + + | Organization | [facility] | | | and [...] Team Providers + +------+ + | Care Health Occupations Teacher Name | Role | Phone | + +------+ + PCP | Unavailable | + +------+ + Encounter Details +--------+ + + + + | Date | Type | Department | Care Team | Description | +--------+ + + + + | 12/02/ | Orders Only | [facility] | Conversion | | | 2017 | | NEPHROLOGY JESUS | Transaction, | | | | | [address] | Provider Unknown | | | | | [address] [place] [address] | | | | | | [phone] | (Fax) | | | | | [phone] | | | +--------+ + + + [...] [address] | | | | | | [place] [address] | | | | | | [phone] | | | | | | | | +--------+---------+ + + + documented as of this encounter Procedures + +--------+ + + + | Procedure Name | Priori | Date/Time | Associated Diagnosis | Comments | | | ty | | | | + +--------+ + + + | BASIC METABOLIC | Routin | 12/02/2016 | | Results for this | | PANEL | e | 12:40 PM | | procedure are in the | | | | PDT | | results section. | + +--------+ + + + documented in this encounter Results Basic Metabolic Panel (12/02/2016 12:40 PM PDT) + +---------+ + + + | Component | Value | Ref Range | Performed | Pathologist | | | | | At | Signature | + +---------+ + + + | Glucose, | 144 (A) | 70 - 100 mg/dL | EXTERNAL | | | Fasting | | | LAB | | + +---------+ + + + | BUN | 23 | 6 - 23 mg/dL | EXTERNAL | | | | | | LAB | | + +---------+ + + + | Creatinine | 0.96 | 0.60 - 1.35 | EXTERNAL | | | | | mg/dL | LAB | | + +---------+ + + + | BUN/Creatin | 24.0 | 6.0 - 28.6 | EXTERNAL | | | ine Ratio | | | LAB | | + +---------+ + + + | Calcium | 9.6 | 8.4 - 10.2 | EXTERNAL | | | | | mg/dL | LAB | | + +---------+ + + + | Na | 139 | 132 - 143 | EXTERNAL | | | | | mmol/L | LAB | | + +---------+ + + + | K | 4.5 | 3.6 - 5.1 | EXTERNAL | | | | | mmol/L | LAB | | + +---------+ + + + | Cl | 103 | 95 - 112 mmol/L | EXTERNAL | | | | | | LAB | | + +---------+ + + + | CO2 | 21 | 19 - 31 mmol/L | EXTERNAL | | | | | | LAB | | + +---------+ + + + | Anion Gap | 19.5 | 7 - 21 mmol/L | EXTERNAL | | | | | | LAB | | + +---------+ + + + | Estimated | 65 | mg/dL | EXTERNAL | | | GFR | | | LAB | | + +---------+ + + + + + | Specimen | + + | Blood specimen | | (specimen) | + + + +---------+ + + | Performing | Address | City/State/Zipcode | Phone Number | | Organization | | | | + +---------+ + + | EXTERNAL LAB | | | | + +---------+ + + documented in this encounter Visit Diagnoses Not on filedocumented in this encounter"
--- OUTSIDE RECORDS SUMMARY | ~2019-12-02 | XMS | Encounter Summary ---
Demographics + + + | Address | [address] | | | [place] [address] | + + + | Home Phone | | + + + | Preferred Language | Unknown | + + + | Marital Status | | + + + | Mandaeism Affiliation | Unknown | + + + | Race | Unknown | + + + | Ethnic Group | Unknown | + + + Author + + + | Author | [facility] | | | and [place] | + + + | Organization | [facility] | | | and Jeffana | [...] Team Providers + +------+ + | Care Production Pattern Maker Name | Role | Phone | + +------+ + PCP | Unavailable | + +------+ + Encounter Details +--------+ + + + + | Date | Type | Department | Care Team | Description | +--------+ + + + + | 11/20/ | Orders Only | [facility] | Conversion | | | 2017 | | NEPHROLOGY JESUS | Transaction, | | | | | [address] | Provider Unknown | | | | | [address] [address] | | | | | | [phone] | (Fax) | | | | | [phone] | | | +--------+ + + + [...] [address] | | | | | | [place] [address] | | | | | | [phone] | | | | | | | | +--------+---------+ + + + documented as of this encounter Procedures + +--------+ + + + | Procedure Name | Priori | Date/Time | Associated Diagnosis | Comments | | | ty | | | | + +--------+ + + + | BASIC METABOLIC | Routin | 11/20/2016 | | Results for this | | PANEL | e | 11:37 AM | | procedure are in the | | | | PDT | | results section. | + +--------+ + + + documented in this encounter Results Basic Metabolic Panel (11/20/2016 11:37 AM PDT) + +---------+ + + + | Component | Value | Ref Range | Performed | Pathologist | | | | | At | Signature | + +---------+ + + + | Glucose, | 203 (A) | 70 - 100 mg/dL | EXTERNAL | | | Fasting | | | LAB | | + +---------+ + + + | BUN | 13 | 6 - 23 mg/dL | EXTERNAL | | | | | | LAB | | + +---------+ + + + | Creatinine | 0.93 | 0.60 - 1.35 | EXTERNAL | | | | | mg/dL | LAB | | + +---------+ + + + | BUN/Creatin | 14.0 | 6.0 - 28.6 | EXTERNAL | | | ine Ratio | | | LAB | | + +---------+ + + + | Calcium | 9.4 | 8.4 - 10.2 | EXTERNAL | | | | | mg/dL | LAB | | + +---------+ + + + | Na | 142 | 132 - 143 | EXTERNAL | | | | | mmol/L | LAB | | + +---------+ + + + | K | 4.2 | 3.6 - 5.1 | EXTERNAL | | | | | mmol/L | LAB | | + +---------+ + + + | Cl | 105 | 95 - 112 mmol/L | EXTERNAL | | | | | | LAB | | + +---------+ + + + | CO2 | 21 | 19 - 31 mmol/L | EXTERNAL | | | | | | LAB | | + +---------+ + + + | Anion Gap | 20.2 | 7 - 21 mmol/L | EXTERNAL | | | | | | LAB | | + +---------+ + + + | Estimated | 67 | mg/dL | EXTERNAL | | | [...]
--- OUTSIDE RECORDS SUMMARY | ~2019-12-02 | XMS | Encounter Summary ---
Demographics + + + | Address | [address] | | | [place] [address] | + + + | Home Phone [...] + | Katalina Padilla | ECON | [address] | | | | | [place], [place] | | | | | [address] | | + + + + + | Ellie Vang | ECON | Unknown | | + + + + + Care Team Providers + +------+ + | Care Copy Chief Name | Role | Phone | + +------+ + | Kenyatta Cardenas MD | PCP | | + +------+ + Encounter Details +--------+ + + + + | Date | Type | Department | Care Team | Description | +--------+ + + + + | 01/26/ | Abstract | Cardiology | Branden Gutiérrez MD | | | 2019 | | Preventive at [facility] | [address] | | | | | [address] | [place], [place] | | | | | Mailcode: CH9A | [address] | | | | | [facility] | [phone] | | | | | and Healing, | | | | | | [address] | | | | | | [place], [place] | | | | | | [address] | | | | | | [phone] | | | +--------+ + + + [...] [address] | | | | | | [place], [place] | | | | | | [address] | | | | | | [phone] | | | | | | | | +--------+---------+ + + + documented as of this encounter Visit Diagnoses Not on filedocumented in this encounter"
--- OUTSIDE RECORDS SUMMARY | ~2019-12-02 | XMS | Encounter Summary ---
Demographics + + + | Address | [address] | | | [place] [address] | + + + | Home Phone [...] + | Katalina Padilla | ECON | [address] | | | | | [place], [place] | | | | | [address] | | + + + + + | Ellie Vang | ECON | Unknown | | + + + + + Care Team Providers + +------+ + | Care Tin Pot Operator Name | Role | Phone | + +------+ + | Fadi Goodrich DO | PCP | | + +------+ + Encounter Details +--------+ + + + + | Date | Type | Department | Care Team | Description | +--------+ + + + + | 07/06/ | Abstract | Digestive Health | Shereen Georges, | | | 2012 | | Center at [facility] [address] | ACNP [address] | | | | | [address] | [address] [place], [place] | | | | | Mailcode: [place] | [address] | | | | | for Health and | | | | | | [facility] [address] | | | | | | [facility] [place] | | | | | | [address] | | | | | | | [...] [address] | | | | | | [place], [place] | | | | | | [address] | | | | | | [phone] | | | | | | | | +--------+---------+ + + + documented as of this encounter Visit Diagnoses Not on filedocumented in this encounter"
--- OUTSIDE RECORDS SUMMARY | ~2019-12-02 | XMS | Encounter Summary ---
Demographics + + + | Address | [address] | | | [place] [address] | + + + | Home Phone | | + + + | Preferred Language | Unknown | + + + | Marital Status | Single | + + + | Tenriism Affiliation | NON | + + + [...] [place], [place] | | | | | [address] | | + + + + + | Ellie Vang | ECON | Unknown | | + + + + + Care Team Providers + +------+ + | Care Helicopter Pilot Instructor Name | Role | Phone | [...] [place] | | | | | | [address] | | | | | | [phone] | | | | | | | | +--------+---------+ + + + documented as of this encounter Visit Diagnoses Not on filedocumented in this encounter"
--- OUTSIDE RECORDS SUMMARY | ~2019-12-02 | XMS | Encounter Summary ---
Demographics + + + | Address | [address] | | | [place] [address] | + + + | Home Phone [...] + | Katalina Padilla | ECON | [address] | | | | | [place], [place] | | | | | [address] | | + + + + + | Ellie Vang | ECON | Unknown | | + + + + + Care Team Providers + +------+ + | Care Tool Maker Bench Name | Role | Phone | + +------+ + | Fadi Goodrich DO | PCP | | + +------+ + Encounter Details +--------+ + + + + | Date | Type | Department | Care Team | Description | +--------+ + + + + | 12/12/ | Emergency | [facility] Emergency | | | | 2014 - | | Department [address] | | | | | [address] | | | | 05/20/ | | [facility] | | | | 2014 | | [place], [place] | | | | | | [address] | | | | | | [phone] | | | +--------+ + + + [...] [address] | | | | | | [place], [place] | | | | | | [address] | | | | | | [phone] | | | | | | | | +--------+---------+ + + + documented as of this encounter Visit Diagnoses Not on filedocumented in this encounter"
--- OUTSIDE RECORDS SUMMARY | ~2019-12-02 | XMS | Clinical Summary ---
Demographics + + + | Address | [address] | | | [place] [address] | + + + | Home Phone | | + + + | Preferred Language | Unknown | + + + | Marital Status | | + + + | Synagogue Affiliation | Unknown | + + + | Race | Unknown | + + + | Ethnic Group | Unknown | + + + Author + + + | Author | [facility] (Historical as of | | | 03-12-19) | + + + | Organization | [facility] (Historical as of | | | 03-12-19) [...] Providers + +------+ + | Care Corporate Pilot Name | Role | Phone | + +------+ + | Kenyatta Cardenas MD | PP | | + +------+ + [...] + + + Current Medications + + +-------+---------+------+------+-------+ | Prescription | Sig. | Disp. | Refills | Star | End | Statu | | | | | | t | Date | s | | | | | | Date | | | + + +-------+---------+------+------+-------+ | thyroid (ARMOUR) | Take 30 mg by mouth | | | | | Activ | | 30 MG tablet | every morning before | | | | | e | | | breakfast. | | | | | | + + +-------+---------+------+------+-------+ | Magnesium 400 MG | Take 1 capsule by | | | | | Activ | | CAPS | mouth daily. | | | | | e | + + +-------+---------+------+------+-------+ | potassium chloride | Take 40 mEq by mouth | | | | | Activ | | WANDA BREAUX) | 2 (two) times | | | | | e | | 20 MEQ tablet | daily. | | | | | | + + +-------+---------+------+------+-------+ | ascorbic acid | Take 1,000 mg by | | | | | Activ | | (VITAMIN C) 500 MG | mouth daily. | | | | | e | | tablet | | | | | | | + + +-------+---------+------+------+-------+ | ergocalciferol | Take 50,000 Units by | | | | | Activ | | (DRISDOL) [id number] | mouth twice a week. | | | | | e | | UNITS capsule | | | | | | | + + +-------+---------+------+------+-------+ | spironolactone | Take 50 mg by mouth | | | | | Activ | | (ALDACTONE) 50 MG | daily. | | | | | e | | tablet | | | | | | | + + +-------+---------+------+------+-------+ | aspirin 81 MG EC | Take 81 mg by mouth | | | | | Activ | | tablet | daily with | | | | | e | | | breakfast. | | | | | | + + +-------+---------+------+------+-------+ | torsemide | Take 100 mg by mouth | | | | | Activ | | (DEMADEX) 100 MG | 2 (two) times | | | | | e | | tablet | daily. | | | | | | + + +-------+---------+------+------+-------+ | phentermine | Take 37.5 mg by | | | | | Activ | | (ADIPEX-P) 37.5 MG | mouth every morning | | | | | e | | tablet | before breakfast. | | | | | | + + +-------+---------+------+------+-------+ | Calcium | Take by mouth. | | | | | Activ | | Citrate-Vitamin D | | | | | | e | | (CALCIUM CITRATE + D | | | | | | | | PO) | | | | | | | + + +-------+---------+------+------+-------+ | atenolol | Take 50 mg by mouth | | | | | Activ | | (TENORMIN) 50 MG | every evening. | | | | | e | | tablet | | | | | | | + + +-------+---------+------+------+-------+ | Docusate Calcium | Take 200 mg by mouth | | | | | Activ | | (STOOL SOFTENER PO) | 2 (two) times | | | | | e | | | daily. | | | | | | + + +-------+---------+------+------+-------+ | ferrous gluconate | Take 324 mg by mouth | | | | | Activ | | 324 (37.5 Fe) MG | 3 (three) times | | | | | e | | tablet | daily with meals. | | | | | | + + +-------+---------+------+------+-------+ | PARoxetine (PAXIL) | Take 40 mg by mouth | | | | | Activ | | 20 MG tablet | every evening. | | | | | e | + + +-------+---------+------+------+-------+ | Multiple | Take 2 tablets by | | | | | Activ | | Vitamins-Minerals | mouth daily. | | | | | e | | (MULTIVITAMIN WITH | | | | | | | | MINERALS) tablet | | | | | | | + + +-------+---------+------+------+-------+ | lurasidone | Take 40 mg by mouth | | | | | Activ | | (LATUDA) 40 MG | daily. T | | | | | e | | tablet | | | | | | | + + +-------+---------+------+------+-------+ | cyanocobalamin | Take 1,000 mcg by | | | | | Activ | | (VITAMIN B-12) 1000 | mouth 2 (two) times | | | | | e | | MCG tablet | daily. | | | | | | + + +-------+---------+------+------+-------+ | UNABLE TO FIND | Take 3 tablets by | | | | | Activ | | | mouth daily. Hair, | | | | | e | | | Skin & Nails | | | | | | + + +-------+---------+------+------+-------+ | pramipexole | Take 0.25 mg by | | | 06/ | | Activ | | (MIRAPEX) 0.125 MG | mouth every evening. | | | 2/20 | | e | | tablet | | | | 19 | | | + + +-------+---------+------+------+-------+ | Buprenorphine HCl | Place 600 mg inside | | | | | Activ | | (BELBUCA) 600 MCG | cheek 2 (two) times | | | | | e | | FILM | daily. | | | | | | + + +-------+---------+------+------+-------+ | ALPRAZolam (XANAX) | Take 1 mg by mouth 2 | | | | | Activ | | 1 MG tablet | (two) times daily. | | | | | e | + + +-------+---------+------+------+-------+ | levonorgestrel | 1 each by | | | | | Activ | | (MIRENA, 52 MG,) 20 | Intrauterine route | | | | | e | | MCG/24HR IUD | once. | | | | | | + + +-------+---------+------+------+-------+ Active Problems + + + | Problem | Noted Date | + + + | History of sinus tachycardia | 04/26/2018 | + + + | HTN, goal below 130/80 | 04/26/2018 | + + + | History of stroke | 04/26/2018 | + + + | History of bariatric surgery | 04/26/2018 | + + + | Acute right-sided [...] | obesity, she is enrolled in the [facility]. She has | | lost [...] | + + + + + | Sleep apnea with use of continuous positive airway pressure | 04/21/2016 | | (CPAP) | | + + + + + | Last Assessment & Plan: Sleep apnea, on BiPAP. | + + + + + | Chronic diastolic heart failure (HCC) | 12/25/2015 | + + + + + | Last Assessment & Plan: Heart failure of preserved EF- recent | | DVT/PE/Cellulitis/ morbid obesityPickwickian syndrome Recent | | admission to [facility] for 100lb weight | | gain- DC on diuresis on 03/06/2016- she feel improvedShe was on | | Metolazone and Torsemide prior to hospitalization- both have | | better bioavailability than lasix in gut edema but she retained | | 100lbs - how ever she is currently on only Torsemide 100mg Q12hrs | | started in [place] and her weight been stable sinceShe has no | | other complaints.She is pending to see [facility] | | 02/16/2016([facility])- Normal LV systolic function, mildly | | [...] first week of January. | + + + + + | Lymphedema | 03/13/2011 | + + + | Moderate depressed bipolar I disorder (HCC) | 11/27/2009 | + + + Resolved Problems + + + + | Problem | Noted | Resolved | | | Date | Date | + + + + | Pure hyperglyceridemia | 04/26/20 | | | | 18 | 9 | + + + + Immunizations + + + + | Name | Dates Previously Given | Next Due | + + + + | DTP | 06/12/1982, 04/05/1982, 10/23/1980, | | | | 1977 | | + + + + | INFLUENZA PF, | 06/04/2017, 04/16/2016 | | | QUADRIVALENT | | | | (PED/ADOL/ADULT) | | | + + + + | INFLUENZA W/PRESERV | 04/27/2018 | | | QUADRIVALENT | | | | (MULTIDOSE) | | | + + + + [...] + + + | Blood Pressure | 108/70 | 01/24/2019 12:18 PM PDT | + + + + | Pulse | 80 | 01/24/2019 12:18 PM PDT | + + + + | Temperature | 36.3 C (97.4 F) | 10/14/2017 1:35 PM PDT | + + + + | Respiratory Rate | 18 | 01/24/2019 12:18 PM PDT | + + + + | Oxygen Saturation | 96% | 01/24/2019 12:18 PM PDT | + + + + | Inhaled Oxygen | - | - | | Concentration | | | + + + + | Weight | 124.6 kg (274 lb | 01/24/2019 12:18 PM PDT | | | 12.8 oz) | | + + + + | Height | 147.3 cm (4' 10") | 01/24/2019 12:18 PM PDT | + + + + | Body Mass Index | 57.43 | 01/24/2019 12:18 PM PDT | + + + + [...] + + + | Vaccine: | | 03/24/1988 | | | Dtap/Tdap/Td (2 - | 6 | | | | Tdap) | | | | + + + + + | Cervical Cancer | | | | | Screening (Pap) | 7 | | | + + + + + | Statin Therapy | | | | | (optimal intensity) | 6 | | | + + + + + | Vaccine: Influenza | | 04/27/2018, 06/04/2017, | | | (Season Ended) | 0 | 04/16/2016, Additional history | | | | | exists | | + + + + + | Vaccine: | Completed | 08/07/2015 | | | Pneumococcal 19-64 | | | | | (PPSV23 only) Medium | | | | | Risk | | | | + + + + + Results Not on filefrom Last 3 Months Insurance + +--------+ +------+-------+ + | Payer | Benefi | Subscriber | Type | Phone | Address | | | t Plan | ID | | | | | | / | | | | | | | Group | | | | | + +--------+ +------+-------+ + | MEDICAID | [place] | [id number] | | | [address] | | | N | | | | [place] | | | [place] | | | | [phone] | | | [employer] | | | | | + +--------+ [...] COURT | | | al/Fam | | 1975 | [phone] [address] [place] | | | [place] | | [phone] | + +--------+ +--------+ + +
--- OUTSIDE RECORDS SUMMARY | ~2019-12-02 | XMS | Encounter Summary ---
Demographics + + + | Address | [address] | | | [place] [address] | + + + | Home Phone | | + + + | Preferred Language | Unknown | + + + | Marital Status | | + + + | Restorationism Affiliation | Unknown | + + + | Race | Unknown | + + + | Ethnic Group | Unknown | + + + Author + + + | Author | [facility] | | | and Jeffana | + + + | Organization | [facility] | | | and Jeffana [...] Team Providers + +------+ + | Care Sign Writer Letterer Or Painter Name | Role | Phone | + +------+ + PCP | Unavailable | + +------+ + Encounter Details +--------+ + + + + | Date | Type | Department | Care Team | Description | +--------+ + + + + | 12/13/ | Hospital | [facility] | Erich Wells | | | 2004 | Encounter | MED CTR SLEEP | MD Michael [address] | | | | | CENTER [address] | [address] [place] | | | | | [place], [place] | [place] [address] | | | | | [address] | [phone] | | | | | [phone] | | | +--------+ + + + [...] Description | +--------+---------+ + + + | 08/10/ | Office | Cardiology | Sulema Altamirano | | | 2019 | Visit | | [address] | | | | | | [address] | | | | | | [place] [address] | | | | | | [phone] | | | | | | | | +--------+---------+ + + + documented as of this encounter Visit Diagnoses Not on filedocumented in this encounter"
--- OUTSIDE RECORDS SUMMARY | ~2019-12-02 | XMS | Encounter Summary ---
Demographics + + + | Address | [address] | | | [place] [address] | + + + | Home Phone [...] + | Katalina Padilla | ECON | [address] | | | | | [place], [place] | | | | | [address] | | + + + + + | Ellie Vang | ECON | Unknown | | + + + + + Care Team Providers + +------+ + | Care Director Of Institutional Sales Name | Role | Phone | [...] | | 2018 | | Preventive at [facility] | [address] | (Phentermine 37.5mg) | | | | [address] | [place], [place] | | | | | Mailcode: [facility] | [address] | | | | | [facility] | [phone] | | | | | and [place], | | | | | | [address] | | | | | | [place], [place] | | | | | | [address] | | | | | | [phone] | | | +--------+ + + + [...] | | | | | [place], [place] | | | | | | [address] | | | | | | [phone] | | | | | | | | +--------+---------+ + + + documented as of this encounter Visit Diagnoses Not on filedocumented in this encounter"
--- OUTSIDE RECORDS SUMMARY | ~2019-12-02 | XMS | Encounter Summary ---
Demographics + + + | Address | [address] | | | [place] [address] | + + + | Home Phone [...] + | Katalina Padilla | ECON | [address] | | | | | [place], [place] | | | | | [address] | | + + + + + | Ellie Vang | ECON | Unknown | | + + + + + Care Team Providers + +------+ + | Care Floor Worker Name | Role | Phone | [...] | 2014 | | [facility] | MD [address] | | | | | Center at [facility] [address] | [facility] [place] | | | | | [address] | [address] | | | | | Mailcode: Center | [phone] | | | | | for Health and | | | | | | [facility], [facility] [address] | | | | | | [facility] [place] | | | | | | [address] | | | | | | [phone] | | | +--------+ + + + [...] Flannery | | | | | | [place], [place] | | | | | | [address] | | | | | | [phone] | | | | | | | | +--------+---------+ + + + documented as of this encounter Visit Diagnoses Not on filedocumented in this encounter"
--- OUTSIDE RECORDS SUMMARY | ~2019-12-02 | XMS | Encounter Summary ---
Demographics + + + | Address | [address] | | | [place] [address] | + + + | Home Phone [...] + | Katalina Padilla | ECON | [address] | | | | | [place], [place] | | | | | [address] | | + + + + + | Ellie Vang | ECON | Unknown | | + + + + + Care Team Providers + +------+ + | Care Blast Furnace Blower Name | Role | Phone | + [...] | +--------+ + + + + | 11/06/ | Anesthesia | 6A Intra Op 3181 | Ananya Joseph, | | | 2012 | Event | [facility] | | | | | | [facility] | | | | | | [facility] Admitting | | | | | | Desk Located on the | | | | | | 9th floor | | | | | | [place], [place] | | | | | | [address] | | | +--------+ + + + + Anesthesia Record + + + + + | Procedure Name | Responsible | Anesthesia Start | Anesthesia Stop Time | | | Anesthesiologist | Time | | + + + + + | repair incarcerated | Ananya oJseph MD | 11/06/12 1019 | 11/06/12 1417 | | ventral hernia; | | | | | possible bowel | | | | | resection; (N/A | | | | | Abdomen) | | | | + + + + + +----+---+ + + | Da | T | Event | Comment | | te | i | | | | | m | | | | | e | | | +----+---+ + + | 04 | 1 | | | | /1 | 0 | | | | 3/ | 1 | | | | 20 | 9 | | | | 13 | | | | +----+---+ + + | | 1 | Pt. Check | Prior to anesthesia start, pt. Identified, examined, chart | | | 0 | | reviewed, PARDiogenes held, anesthetic plan made or approved by | | | 1 | | attending anesthesiologist. NPO status confirmed as appropriate | | | 9 | | for procedure Preoperative evaluation: unchanged | +----+---+ + + | | 1 | An Start | | | | 0 | | | | | 1 | | | | | 9 | | | +----+---+ + + | | 1 | An Start | | | | 0 | Data | | | | 3 | | | | | 0 | | | +----+---+ + + | | 1 | Vitals | Monitors applied Vital signs checked Patient ready for anesthesia | | | 0 | Checked | | | | 3 | | | | | 9 | | | +----+---+ + + | | 1 | Std. Airway | | | | 0 | Mgt. | | | | 4 | | | | | 4 | | | +----+---+ + + | | 1 | Art Line | | | | 0 | | | | | 5 | | | | | 8 | | | +----+---+ + + | | 1 | Central | | | | 1 | venous line | | | | 0 | | | | | 9 | | | +----+---+ + + | | 1 | Ready | | | | 1 | | | | | 2 | | | | | 2 | | | +----+---+ + + | | 1 | Abx | | | | 1 | Administere | | | | 3 | d | | | | 2 | | | +----+---+ + + | | 1 | Incision | | | | 1 | | | | | 4 | | | | | 7 | | | +----+---+ + + | | 1 | Quick Note | Difficulty placing NG tube. Moderate amount of bleeding. Dilated | | | 1 | | nare with nasal trumpet and able to place NG. | | | 4 | | | | | 8 | | | +----+---+ + + | | 1 | Surgery end | | | | 3 | | | | | 4 | | | | | 2 | | | +----+---+ + + | | 1 | Quick Note | Brought to the ICU intubated, report given. VSS | | | 4 | | | | | 1 | | | | | 6 | | | +----+---+ + + | | 1 | Anesthesia | | | | 4 | End | | | | 1 | | | | | 7 | | | +----+---+ + + +------+ | Meds | +------+ + + + | Name | Total | + + + | fentaNYL | 350 mcg | + + + | lidocaine 2% | 100 mg | + + + | propofol | 300 mg | + + + | succinylcholine | 160 mg | + + + | vecuronium | 25 mg | + + + | vancomycin 1g | 1.5 g | + + + | LR | 850 mL | + + + | LR | 0 mL | + + + | NS | 1,300 mL | + + + + + | Name | + + | Insp Dwaine | + + | Et Dwaine | + + | EtN2O % | + + | Insp N2O % | + + | O2 Flow Rate (Total Liters) | + + | Air Flow rate (L/min) | + + + + | No blood administrations on file. | + + +--------+ + + + | Type | Details | Placement | Removal | +--------+ + + + | RETIRE | 11/06/12; 11/07/12; 1115; Right | 11/06/12 0000 by | 11/07/12 1115 by | | D - | Francisca; JOSEFINA | Alejandrina Bradley RN | Glendy Fonseca RN | | Gastri | | | | | c/Feed | | | | | ing | | | | | Tube | | | | +--------+ + + + | RETIRE | 11/06/12; 23 cm; 11/06/12; 2039; | 11/06/12 0000 by | 11/06/122039 by | | D - | Endotracheal Tube (ETT); 7 | Alejandrina Bradley RN | Evens Dean RN | | ETT/Or | | | | | al | | | | | Airway | | | | +--------+ + + + | RETIRE | 11/07/12; 0509; Yes; Right; Wrist | 11/06/12 0432 by | 11/07/12 0509 by | | D - | | | Evens Dean RN | | Periph | | | | | eral | | | | | Line | | | | +--------+ + + + | RETIRE | 11/06/12; 0603; Under neath | 11/06/12 0603 by | 05/14/17 1622 by | | D - | pannus bilaterally; Yes; | Miladis Braga RN | [...] + + + | RETIRE | 11/06/12; 1049; 11/08/12; 1417; | 11/06/12 1049 by | 11/08/12 1417 by | | D - | No; 18; Left; Hand; None; No; | Adriana Cruz MD | Geneva Kohli RN | | Periph | Positive | | | | eral | | | | | Line | | | | +--------+ + + + | RETIRE | 11/06/12; 1055; 11/08/12; 1132; | 11/06/12 1055 by | 11/08/12 1132 by | | D - | No; Magui; 16FR | Luanne Bonilla RN | Geneva Kohli RN | | Urinar | | | | | y Cath | | | | | | | | | | Placem | | | | | ent | | | | | (Zonia | | | | | & Cath | | | | | Care | | | | | Daily | | | | | and Q | | | | | BM) | | | | +--------+ + + [...] + + + | RETIRE | 11/06/12; 1200; 11/07/12; 0530; | 11/06/12 1200 by | 11/07/12 0530 by | | D - | No; radial, left | Evens Dean RN | Evens Dean RN | | Arteri | | | | | al | | | | | Line | | | | +--------+ + + [...] Flann[place] | | | | | | [place], [place] | | | | | | [address] | | | | | | [phone] | | | | | | | | +--------+---------+ + + + documented as of this encounter Visit Diagnoses Not on filedocumented in this encounter Administered Medications + +--------+ +--------+------+------+ | Medication Order | MAR | Action | Dose | Rate | Site | | | Action | Date | | | | + +--------+ +--------+------+------+ | fentaNYL citrate (PF) (aka | Given | 11/07/19 | 50 mcg | | | | SUBLIMAZE) injection | | 13 1:04 | | | | | INTRAPROCEDURE PRN, Starting Sat | | PM PDT | | | | | 11/06/12 at 1041, Until Sat | | | | | | | 11/06/12 at 1417, sedation | | | | | | + +--------+ +--------+------+------+ +-------+ +---------+---+---+ | Given | 11/07/19 | 100 mcg | | | | | 13 11:50 | | | | | | AM PDT | | | | +-------+ +---------+---+---+ | Given | 11/07/19 | 200 mcg | | | | | 13 10:41 | | | | | | AM PDT | | | | +-------+ +---------+---+---+ +---+---+ | | | +---+---+ + + + +----+---+---+ | lactated ringers IV | given by | 11/07/19 | mL | | | | INTRAPROCEDURE CONTINUOUS PRN, | | 13 1:21 | | | | | Starting 11/06/12 at 1019, | anesthes | PM PDT | | | | | Until 11/06/12 at 1417 | iology | | | | | + + + +----+---+---+ +---------+ +----+---+---+ | New Bag | 11/07/19 | mL | | | | | 13 10:19 | | | | | | AM PDT | | | | +---------+ +----+---+---+ +---+---+ | | | +---+---+ + + + +-------+-------+---+ | lactated ringers IV | Restarte | 11/07/19 | mL/hr | 400 | | | INTRAPROCEDURE CONTINUOUS PRN, | d | 13 1:25 | | mL/hr | | | Starting 11/06/12 at 1132, | | PM PDT | | | | | Until 11/06/12 at 1417 | | | | | | + + + +-------+-------+---+ +---------+ +-------+ +---+ | New Bag | 11/07/19 | mL/hr | 50 mL/hr | | | | 13 11:32 | | | | | | AM PDT | | | | +---------+ +-------+ +---+ +---+---+ | | | +---+---+ + +-------+ +--------+---+---+ | lidocaine (aka XYLOCAINE MPF) | Given | 11/07/19 | 100 mg | | | | 20 mg/mL (2 %) injection | | 13 10:44 | | | | | INTRAPROCEDURE PRN, Starting Sat | | AM PDT | | | | | 11/06/12 at 1044, Until Sat | | | | | | | 11/06/12 at 1417 | | | | | | + +-------+ +--------+---+---+ +---+---+ | | | +---+---+ + + + +----+---+---+ | NaCl 0.9 % IV INTRAPROCEDURE | given by | 11/07/19 | mL | | | | CONTINUOUS PRN, Starting Sat | | 13 1:49 | | | | | 11/06/12 at 1128, Until Sat | anesthes | PM PDT | | | | | 11/06/12 at 1417 | iology | | | | | + + + +----+---+---+ + + +----+---+---+ | given by anesthesiology | 11/07/19 | mL | | | | | 13 1:21 | | | | | | PM PDT | | | | + + +----+---+---+ | New Bag | 11/07/19 | mL | | | | | 13 11:28 | | | | | | AM PDT | | | | + + +----+---+---+ +---+---+ | | | +---+---+ + +-------+ +-------+---+---+ | propofol INTRAPROCEDURE PRN, | Given | 11/07/19 | 50 mg | | | | Starting 11/06/12 at 1045, | | 13 11:00 | | | | | Until 11/06/12 at 1417 | | AM PDT | | | | + +-------+ +-------+---+---+ +-------+ +--------+---+---+ | Given | 11/07/19 | 250 mg | | | | | 13 10:45 | | | | | | AM PDT | | | | +-------+ +--------+---+---+ +---+---+ | | | +---+---+ + +-------+ +--------+---+---+ | SUCCINYLCHOLINE CHLORIDE 20 | Given | 11/07/19 | 160 mg | | | | MG/ML INJ (PROSED/RSI) | | 13 10:45 | | | | | INTRAPROCEDURE PRN, Starting Sat | | AM PDT | | | | | 11/06/12 at 1045, Until Sat | | | | | | | 11/06/12 at 1417, Neuromuscular | | | | | | | block | | | | | | + +-------+ +--------+---+---+ +---+---+ | | | +---+---+ + +-------+ +-------+---+---+ | vancomycin (aka VANCOCIN) IV | Given | 11/07/19 | 1.5 g | | | | intravenous, INTRAPROCEDURE PRN, | | 13 11:32 | | | | | Starting 11/06/12 at 1132, | | AM PDT | | | | | Until 11/06/12 at 1417 | | | | | | + +-------+ +-------+---+---+ +---+---+ | | | +---+---+ + +-------+ +------+---+---+ | vecuronium (aka NORCURON) | Given | 11/07/19 | 5 mg | | | | injection INTRAPROCEDURE PRN, | | 13 1:35 | | | | | Starting 11/06/12 at 1122, | | PM PDT | | | | | Until 11/06/12 at 1417, | | | | | | | Neuromuscular block | | | | | | + +-------+ +------+---+---+ +-------+ +------+---+---+ | Given | 11/07/19 | 5 mg | | | | | 13 12:56 | | | | | | PM PDT | | | | +-------+ +------+---+---+ | Given | 11/07/19 | 5 mg | | | | | 13 11:22 | | | | | | AM PDT | | | | +-------+ +------+---+---+ +---+---+ | | | +---+---+ documented in this encounter"
--- OUTSIDE RECORDS SUMMARY | ~2019-12-02 | XMS | Encounter Summary ---
Demographics + + + | Address | [address] | | | [place] [address] | + + + | Home Phone [...] + | Katalina Padilla | ECON | [address] | | | | | [place], [place] | | | | | [address] | | + + + + + | Ellie Vang | ECON | Unknown | | + + + + + Care Team Providers + +------+ + | Care Manager Storage Name | Role | Phone | + +------+ + | Fadi Goodrich DO | PCP | | + +------+ + Reason for Visit + + + | Reason | Comments | + + + | Follow-up visit | | + + + Benefits Check (Routine) +--------+--------+ + + + + | Status | Reason | Specialty | Diagnoses / | Referred By | Referred To | | | | | Procedures | Contact | Contact | +--------+--------+ + + + + | Closed | | Surgery | | Non-[facility] | [facility], | | | | | | [facility] Dept | MD Hernandez | | | | | | | [address] | | | | | | | [place] | | | | | | | [place], | | | | | | | [place] | | | | | | | [address] | | | | | | | Phone: | | | | | | | [phone] | | | | | | | Fax: | | | | | | | [phone] | +--------+--------+ + + + + Encounter Details +--------+---------+ + + + | Date | Type | Department | Care Team | Description | +--------+---------+ + + + | 04/14/ | Office | Digestive Health | Hernandez Brian, | Morbid obesity (HCC) | | 2013 | Visit | Center at [facility] [address] | [address] [facility] | (Primary Dx); Type | | | | [address] | [address] | 2 diabetes mellitus | | | | Mailcode: Center | [place], [place] | ([facility]); [place] | | | | for Health and | [address] | (obstructive sleep | | | | [facility] | [phone] | apnea); Edema | | | | [place], [place] | | | | | | [address] | | | | | | [phone] | | | +--------+---------+ + + + [...] + + + | Blood Pressure | 152/83 | 04/14/2013 2:54 PM | | | | | PDT | | + + + + + | Pulse | 109 | 04/14/2013 2:54 PM | | | | | PDT | | + + + + + | Temperature | 36.5 C (97.7 F) | 04/14/2013 2:54 PM | | | | | PDT | | + + + + + | Respiratory Rate | 21 | 04/14/2013 2:54 PM | | | | | PDT | | + + + + + | Oxygen Saturation | - | - | | + + + + + | Inhaled Oxygen | - | - | | | Concentration | | | | + + + + + | Weight | 175 kg (385 lb 12.8 | 04/14/2013 2:54 PM | | | | oz) | PDT | | + + + + + | Height | 154.9 cm (5' 1") | 04/14/2013 2:54 PM | | | | | PDT | | + + + + + | Body Mass Index | 72.9 | 04/14/2013 2:54 PM | | | | | PDT | | + + + + + documented in this encounter Progress Notes Hernandez Brian MD - 04/18/2013 12:04 PM PDTI have reviewed and verified the scribed not e of this patient s visit as recorded by Danay Lema. Danay Diaz - 04/14/2013 10:44 AM PDT GENERAL SURGERY OFFICE VISIT DATE OF VISIT: 04/14/2013 I am Danay Lema, functioning as a scribe for Dr. Hernandez Brian REASON FOR VISIT: Recurrent incisional hernia. HISTORY: Elzbieta Cristina is a 38 y.o. morbidly obese female (BMI 72) with history of open appendectomy in 2010 an umbilical hernia repair, history of staph wound infection requiring incision and drainage and recurrent ventral hernia. Back in October of this year, she was tr ansferred from [place] for surgical evaluation of possible incarcerated ventral hernia wit h increasing pain, vomiting and lack of bowel function. On 11/06/12 she was taken to the OR for exploratory laparotomy and it was found that she had incarcerated small bowel within the hernia sac, and a 5 x 5 cm defect midline. Bowel was viable and pinked up after reduction and lysis of adhesions (Dr. Andie Brian) On 02/10/2013 patient phoned, reporting ~02/06 she began having 8/10 pain right side of abd omen above old incision. Area hard and tender to touch, no lump or protrusion, just hardnes s and swelling, unable to reduce. She had been seeing Dr. Guillory for a "hole" in old incisio n which she had been packing and reportedly it was closing down nicely. She was offered rosanne ointment for today, with close followup by her PCP in [place] in the interim. Dr. Guillory in [place] has been following her since January, with CT scan obtained at [facility] in [place] 02/09/2013 (images in [facility]), demonstrating "recurrent hypogastric ventra l abdominal wall hernia containing nonincarcerated loops of small bowel. Inferior and anter ior to the hernia sac there is a new gas-containing ventral abdominal wall subcutaneous flui d collection with a possible developing sinus tract along its inferior margin, measuring rosanne roximately 86 x 15 mm in the transverse plane and worrisome for abscess. Mild splenomegaly." The last chart note we received from Dr. Guillory was from 02/21, at which time he reported he r recent bout of panniculitis had cleared with antibiotics. She had reported to the local E R a few days prior but note is not available for that visit. He refilled her Dilaudid. She had a 1 cm area open on her incision which was healing nicely and she was advised to cover it with gauze. She was encouraged to follow up with her providers at [facility] to include a visi t to our clinic for repair of recurrent hernia as well as endocrinology (seeing them today) TODAY IN CLINIC she presents alone. Lower midline hernia is causing pain and she states th e pain has actually increased incrementally with her weight loss. BMs for the most part are once daily but intermittently she will go two days without a BM. She used to have sleep apnea but since losing some weight she feels she no longer has a pro blem with it. Does not snore anymore. May recommend bypass before hernia repair. She saw Dr. Dr. Fransk today who started her on phentermine and a fingerstick A1c was 5.0. She desires bypass surgery, per patient report has lost 112 lbs on her own and continues he r weight loss efforts. She saw a wood tool maker today and Melida came in to discuss bariatric sarahi cklist with patient and get her started on the process. RISK FACTORS: Diabetes mellitus type 2. The 04/14/2013 fingerstick for capillary A1c obtained by endocri nology was 5.0. Morbid obesity Has never smoked WEIGHT ONLY Weight (lbs) Weight (kg) BMI 10/07/2012 431 lbs 195.5 kg 11/06/2012 404 lbs 183.253 kg 75.41 11/11/2012 398 lbs 14 oz 180.94 kg 12/03/2012 385 lbs 174.635 kg 72.78 04/14/2013 382 lbs 13 oz 173.637 kg 72.37 Past Medical History Diagnosis Date Neck pain [...] hernia, incarcerated 2012 Hernia of abdominal wall Past Surgical History Procedure Laterality Date Tonsillectomy and adenoidectomy Appendectomy, open 2010 Umbilical hernia repair 2010 Treatment of ankle fracture with screws remaining Incision and drainage of wound abscess x2 midline transverse wound s/p open appendectomy 2010 Ventral hernia repair 10/2012 Dr. Andie Brian Current Outpatient Prescriptions Medication Sig ALPRAZolam XR [...] this visit. Allergies Allergen Reactions Amoxicillin Benadrilina (Diphenhydramine Hcl) Parlodel (Bromocriptine) Unknown Blood clots Family Hx Problem Relation Age of Onset Alcohol/Drug Alcoholism in mother & father Hypertension M&F Asthma Father, brother, daughters Lung Disease Father Obesity M&F&Sister Diabetes Mother Arthritis M&F History Substance Use Topics Smoking status: Never Smoker Smokeless tobacco: Not on file Alcohol Use: No Social History Narrative She, her daughter, and grandchildren live in a duplex above her mother. REVIEW OF SYSTEMS: All 14 systems reviewed and negative except as noted above. PHYSICAL EXAMINATION: BP 152/83 | Pulse 109 | Temp (Src) 36.5 C (97.7 F) (Oral) | RR 21 | Ht 1.549 m (5' 1") | Wt 174.998 kg (385 lb 12.8 oz) | BMI 72.93 kg/(m^2) GENERAL: Well nourished, well developed and in no apparent distress, alert and active. HEENT: Grossly within normal limits. NECK: Supple, full range of motion. SKIN: No visible rashes. CHEST: Respirations even and unlabored. CARDIOVASCULAR: Extremities warm and well perfused. ABDOMEN: Type III pannus jail to her knees. There is a well healed transverse incision in the area of umbilicus, 40 cm long. It is difficult to tell if there is a hernia. Abdome n is soft without organomegaly. GROINS/: Deferred. EXTREMITIES: No edema, normal range of motion. NEUROLOGIC: Moves all extremities spontaneously. No apparent neurologic deficits. Cranial nerves 2-12 grossly intact. Gait symmetric and age appropriate. 02/09/2013 IMPRESSION: A 38 y.o. morbidly obese female with symptomatic nonincarcerated ventral herni a. PLAN: 1. Enrolling patient in bariatric program. Melida spoke with patient in clinic today to ge t the process started. 2. Continue weight loss efforts. Goal to lose 20 more pounds before surgery. 3. Plan on hernia repair once bariatric surgery completed and patient has lost more weight . documented in this enco unter Plan of Treatment +--------+---------+ + + + | Date | Type | Specialty | Care Team | Description | +--------+---------+ + + + | 03/15/ | Office | Cardiology | Randell Franks, | | | 2019 | Visit | | [address] | | | | | | [place], [place] | | | | | | [address] | | | | | | [phone] | | | | | | | [...] apnea (adult) (pediatric) | + + | Edema | + + documented in this encounter
--- OUTSIDE RECORDS SUMMARY | ~2019-12-02 | XMS | Encounter Summary ---
Demographics + + + | Address | [address] | | | [place] [address] | + + + | Home Phone [...] + | Katalina Padilla | ECON | [address] | | | | | [place], [place] | | | | | [address] | | + + + + + | Ellie Vang | ECON | Unknown | | + + + + + Care Team Providers + +------+ + | Care Crane Rigger Name | Role | Phone | + [...] [id number] | | | | | | [facility] | | | | | | [place], [place] | | | | | | [address] | | | | | | [phone] | | | +--------+ + + + [...] [address] | | | | | | [place], [place] | | | | | | [address] | | | | | | [phone] | | | | | | | | +--------+---------+ + + + documented as of this encounter Visit Diagnoses Not on filedocumented in this encounter"
--- OUTSIDE RECORDS SUMMARY | ~2019-12-02 | XMS | Encounter Summary ---
Demographics + + + | Address | [address] | | | [place] [address] | + + + | Home Phone [...] + | Katalina Padilla | ECON | [address] | | | | | [place], [place] | | | | | [address] | | + + + + + | Ellie Vang | ECON | Unknown | | + + + + + Care Team Providers + +------+ + | Care Role Player Name | Role | Phone | + +------+ + | Fadi Goodrich DO | PCP | | + +------+ + Reason for Visit +--------+ + | Reason | Comments | +--------+ + | Other | labs | +--------+ + Encounter Details +--------+ + + + + | Date | Type | Department | Care Team | Description | +--------+ + + + + | 06/20/ | Telephone | Digestive Health | RonaldonaldoHernandez, | Other (labs) | | 2012 | | Center [address] | [address] | | | | | [place] Mailcode: CH4S | [facility] | | | | | [facility] | [place], [place] | | | | | and Healing, | [address] | | | | | [place] [address] [facility] | [phone] | | | | | Floor [place], [place] | | | | | | [address] | | | | | | [phone] | | | +--------+ + + + [...] | | 2019 | Visit | | [address] | | | | | | [place], [place] | | | | | | [address] | | | | | | [phone] | | | | | | | | +--------+---------+ + + + documented as of this encounter Visit Diagnoses Not on filedocumented in this encounter"
--- OUTSIDE RECORDS SUMMARY | ~2019-12-02 | XMS | Encounter Summary ---
Demographics + + + | Address | [address] | | | [place] [address] | + + + | Home Phone [...] + | Katalina Padilla | ECON | [address] | | | | | [place], [place] | | | | | [address] | | + + + + + | Ellie Vang | ECON | Unknown | | + + + + + Care Team Providers + +------+ + | Care Delivery Sales Worker Name | Role | Phone | + +------+ + | Fadi Goodrich DO | PCP | | + +------+ + Reason for Visit +--------+ + | Reason | Comments | +--------+ + | Other | | +--------+ + Encounter Details +--------+ + + + + | Date | Type | Department | Care Team | Description | +--------+ + + + + | 02/24/ | Telephone | Cardiology | Randell Franks, | Other | | 2016 | | Preventive at [facility] | MD [address] | | | | | [address] | [place], [place] | | | | | Mailcode: CH9A | [address] | | | | | [facility] | [phone] | | | | | and Healing, | | | | | | [address] | | | | | | [facility] [place] | | | | | | [address] | | | | | | [phone] | | | +--------+ + + + [...] [address] | | | | | | [place], [place] | | | | | | [address] | | | | | | [phone] | | | | | | | | +--------+---------+ + + + documented as of this encounter Visit Diagnoses Not on filedocumented in this encounter"
--- OUTSIDE RECORDS SUMMARY | ~2019-12-02 | XMS | Encounter Summary ---
Demographics + + + | Address | [address] | | | [place] [address] | + + + | Home Phone [...] [place], [place] | | | | | [address] | | + + + + + | Ellie Vang | ECON | Unknown | | + + + + + Care Team Providers + +------+ + | Care Dispatcher Tugboat Name | Role | Phone | + +------+ + | Kenyatta Cardenas MD | PCP | | + +------+ + Encounter Details +--------+ + + + + | Date | Type | Department | Care Team | Description | +--------+ + + + + | 03/10/ | Pharmacy | [facility] | | | | 2018 | Visit | [facility] | | | | | | [address] | | | | | | Mailcode: Center | | | | | | [facility] and | | | | | | [facility] [address] | | | | | | [place], [place] | | | | | | [address] | | | | | | [phone] | | | +--------+ + + + [...] [address] | | | | | | [place], [place] | | | | | | [address] | | | | | | [phone] | | | | | | | | +--------+---------+ + + + documented as of this encounter Visit Diagnoses Not on filedocumented in this encounter"
--- OUTSIDE RECORDS SUMMARY | ~2019-12-02 | XMS | Encounter Summary ---
Demographics + + + | Address | [address] | | | [place] [address] | + + + | Home Phone [...] [place], [place] | | | | | [address] | | + + + + + | Ellie Vang | ECON | Unknown | | + + + + + Care Team Providers + +------+ + | Care Corporate Counselor Name | Role | Phone | [...] | | | | | | [place], [place] | | | | | | [address] | | | | | | [phone] | | | +--------+ + + + [...] [address] | | | | | | [facility] [place] | | | | | | [address] | | | | | | [phone] | | | | | | | | +--------+---------+ + + + documented as of this encounter Visit Diagnoses Not on filedocumented in this encounter"
--- OUTSIDE RECORDS SUMMARY | ~2019-12-02 | XMS | Encounter Summary ---
Demographics + + + | Address | [address] | | | [place] [address] | + + + | Home Phone [...] [place], [place] | | | | | [address] | | + + + + + | Ellie Vang | ECON | Unknown | | + + + + + Care Team Providers + +------+ + | Care Injection Operator Name | Role | Phone | + +------+ + | Fadi Goodrich DO | PCP | | + +------+ + Encounter Details +--------+------+ + + + | Date | Type | Department | Care Team | Description | +--------+------+ + + + | 12/05/ | Lab | Laboratory at [facility] | | Type 2 diabetes | | 2013 | | [address] | | mellitus (HCC) | | | | [place], [place] | | | | | | [address] | | | | | | [phone] | | | +--------+------+ + + + [...] [address] | | | | | | [place], [place] | | | | | | [address] | | | | | | [phone] | | | | | | | [...] | + + + + + | [facility] | [address] | [place] [address] | | | SERVICES, SPECIAL | PARK [...]
--- OUTSIDE RECORDS SUMMARY | ~2019-12-02 | XMS | Encounter Summary ---
Demographics + + + | Address | [address] | | | [place] [address] | + + + | Home Phone [...] + | Katalina Padilla | ECON | [address] | | | | | [place], [place] | | | | | [address] | | + + + + + | Ellie Vang | ECON | Unknown | | + + + + + Care Team Providers + +------+ + | Care Biodiesel Plant Superintendent Name | Role | Phone [...] [address] | | | | | ([facility]) | [address] | [address] | | | | | Procedures | [place], [place] | [place], [place] | | | | | CONSULT TO | [address] | [address] | | | | | CAR | Phone: | Phone: | | | | | PREVENTATIVE | [phone] | [phone] | | | | | [facility] - | Fax: | Fax: | | | | | LIPIDS | [phone] | [phone] | +--------+--------+ + + + + Reason [...] | | 2 diabetes | [place], | [place], [place] | | | | | mellitus | [place] [address] | [address] | | | | | without | Phone: | Phone: | | | | | complication | [phone] | [phone] | | | | | (HCC) | Fax: | Fax: | | | | | Procedures | [phone] | [phone] | | | | | DC EST | | | | | | [...] | 2017 | Visit | Preventive at [facility] | MD [address] | hypertension | | | | [address] | [facility] [place] | (Primary Dx); Right | | | | Mailcode: CH9A | [address] | heart failure (HCC) | | | | [facility] | [phone] | | | | | and Healing, | | | | | | [address] | | | | | | [place], [place] | | | | | | [address] | | | | | | [phone] | | | +--------+---------+ + + + [...] 1 tablet by mouth once daily CALCIUM [id number] ORAL Take 2 tablets by mouth two [...] | | 2019 | Visit | | [address] | | | | | | [place], [place] | | | | | | [address] | | | | | | [phone] | | | | | | | | +--------+---------+ + + + documented as of this encounter Visit Diagnoses + + | Diagnosis | + + | Essential hypertension - Primary | + + | Right heart failure (HCC) Congestive heart failure, unspecified | + + documented in this encounter
--- OUTSIDE RECORDS SUMMARY | ~2019-12-02 | XMS | Encounter Summary ---
Demographics + + + | Address | [address] | | | [place] [address] | + + + | Home Phone [...] + | Katalina Padilla | ECON | [address] | | | | | [place], [place] | | | | | [address] | | + + + + + | Ellie Vang | ECON | Unknown | | + + + + + Care Team Providers + +------+ + | Care Spa Manager Name | Role | Phone | + +------+ + | Fadi Goodrich DO | PCP | | + +------+ + Encounter Details +--------+ + + + + | Date | Type | Department | Care Team | Description | +--------+ + + + + | 11/04/ | Telephone | Pain Center at [facility] | Leslie Mistry, | | | 2017 | | [address] | PhD [address] [facility] | | | | | Mailcode: CH15P | [address] | | | | | [facility] | [place], [place] | | | | | and [place], | [address] | | | | | | [phone] | | | | | Floor [place], [place] | | | | | | [address] | | | | | | [phone] | | | +--------+ + + + [...] [address] | | | | | | [place], [place] | | | | | | [address] | | | | | | [phone] | | | | | | | | +--------+---------+ + + + documented as of this encounter Visit Diagnoses Not on filedocumented in this encounter"
--- OUTSIDE RECORDS SUMMARY | ~2019-12-02 | XMS | Encounter Summary ---
Demographics + + + | Address | [address] | | | [place] [address] | + + + | Home Phone [...] [place], [place] | | | | | [address] | | + + + + + | Ellie Vang | ECON | Unknown | | + + + + + Care Team Providers + +------+ + | Care Radiator Tester Name | Role | Phone | + +------+ + | Fadi Goodrich DO | PCP | | + +------+ + Encounter Details +--------+ + + + + | Date | Type | Department | Care Team | Description | +--------+ + + + + | 02/24/ | Abstract | Cardiology | Randell Franks, | | | 2015 | | Preventive at [facility] | MD [address] | | | | | [address] | [facility] [place] | | | | | Mailcode: CH9A | [address] | | | | | [facility] | [phone] | | | | | and Healing, | | | | | | [address] | | | | | | [facility] [place] | | | | | | [address] | | | | | | [phone] | | | +--------+ + + + [...] | | 2019 | Visit | | [address] | | | | | | [place], [place] | | | | | | [address] | | | | | | [phone] | | | | | | | | +--------+---------+ + + + documented as of this encounter Visit Diagnoses Not on filedocumented in this encounter"
--- OUTSIDE RECORDS SUMMARY | ~2019-12-02 | XMS | Encounter Summary ---
Demographics + + + | Address | [address] | | | [place] [address] | + + + | Home Phone [...] Author + + + | Author | [facility] | + + + | Organization | [facility] | + + + | Address | Unknown | + + + | Phone | Unavailable | + + + Support + + + + + | Name | Relationship | Address | Phone | + + + + + | Katalina Padilla | ECON | [address] | | | | | [place], [place] | | | | | [address] | | + + + + + | Ellie Vang | ECON | Unknown | | + + + + + Care Team Providers + +------+ + | Care Slip Cover Cutter Name | Role | Phone | + [...] 03/01/ | Hospital | [facility] [address] | Ion Castanon, | | | 2018 - | Encounter | [address] | [address] | | | | | [place], [place] | [place], [place] | | | 03/03/ | | [address] | [address] | | | 2017 | | [phone] | [phone] | | | | | | | [...] Gavin ACNP - 03/03/2018 9:49 AM PDT [facility] RED SURGERY INPATIENT DISCHARGE SUMMARY Author: [...] to a bariatric full liquid diets. Our [facility] dietitian was consulted and they discussed her [...] at minimum. 5. Follow with PCP for Kennel Technician within 1 - 2 weeks of discharge [...] mg by mouth two times daily. CALCIUM CRB&[id number]-[id number]-GENIS ORAL Take 2 tablets by mouth two [...] or Kefir, [place] Yogurt, and Chioban i Qatari Yogurt are common brands with beneficial probiotics. [...] available over the counter at most [facility] [employer] stores. Nausea/Vomiting/Difficulty Swallowing Nausea/Vomiting/Difficulty swallowing: Could be [...] hours per your instructions. Some medications, like Irvine, have Tylenol in it. Make sure you [...] hours by calling the surgery office at [phone]. - After hours, weekends and holidays, you may call the hospital insulation board coater operator at [phone] an d have the education program coordinator Red Surgery Team paged. OTHER DISCHARGE ORDERS [...] at minimum. 5. Follow with PCP for Kennel Technician within 1 - 2 weeks of discharge [...] Department Dept Phone Center 03/10/2018 1:30 PM [facility] at [facility] 6th Floor [phone] FO OD AND NUT 03/10/2018 3:05 PM [facility] Digestive [facility] at [facility] 6th Floor [phone] [facility] 04/01/2018 10:30 AM [facility] at [facility] 6th Floor [phone] FO OD AND NUT 04/01/2018 11:00 AM Ion Castanon [facility] at [facility] 6th Floor [phone] [facility] 05/27/2018 2:30 PM [facility] Digestive [facility] at [facility] 6th Floor [phone] FO OD AND NUT 05/27/2018 3:05 PM [facility] Digestive [facility] at [facility] 6th Floor [phone] [facility] 05/27/2018 4:30 PM [facility] at [facility] 15th Floor [phone] Comprehensiv 06/04/2018 10:35 AM Randell Franks Cardiology Preventive at [facility] [phone] Cardiology Discharging Physician: KAIN Agee Attending Physician: Ion Castanon MD [facility] Surgery Pager# [phone] 9:50 AM 03/03/2018 documented in this enco [...] | | 0 | | | | [id number]-GEN | mouth two times | | | [...] as of this encounter Progress Notes Gino Claixto - 03/03/2018 6:32 AM PDTFormatting of this note might be different from th yesenia mendiola. RED Surgical Team: Foregut/Bariatrics Daily Progress [...] date of discharge 03/03/18 PARTHA Calixto MS3 [facility] [employer] Demarcus Menon MD - [...] for care ride home (pt lives in [place]) Demarcus Alas M.D. General Surgery Resident PGY-1 Pager: [phone] Ion Ferrari MD - 10:00 AM PDTI [...] [address] | | | | | | [place], [place] | | | | | | [address] | | | | | | [phone] | | | | | | | [...] POC | | PDT | over, adult ([facility]) | results section. | + +--------+ + + + | CAPILLARY BLOOD | Routin | 03/03/2018 | Morbid obesity | Results for this | | GLUCOSE (NO CHG), | e | 7:54 AM | with BMI of 70 and | procedure are in the | | POC | | PDT | over, adult ([facility]) | results section. | + +--------+ + + + | CAPILLARY BLOOD | Routin | 03/03/2018 | Morbid obesity | Results for this | | GLUCOSE (NO CHG), | e | 6:28 AM | with BMI of 70 and | procedure are in the | | POC | | PDT | over, adult ([facility]) | results section. | + +--------+ + + + | CAPILLARY BLOOD | Routin | 03/02/2018 | Morbid obesity | Results for this | | GLUCOSE (NO CHG), | e | 9:17 PM | with BMI of 70 and | procedure are in the | | POC | | PDT | over, adult ([facility]) | results section. | + +--------+ + + + | CAPILLARY BLOOD | Routin | 03/02/2018 | Morbid obesity | Results for this | | GLUCOSE (NO CHG), | e | 6:50 PM | with BMI of 70 and | procedure are in the | | POC | | PDT | over, adult ([facility]) | results section. | + +--------+ + + + | CAPILLARY BLOOD | Routin | 03/02/2018 | Morbid obesity | Results for this | | GLUCOSE (NO CHG), | e | 3:46 PM | with BMI of 70 and | procedure are in the | | POC | | PDT | over, adult ([facility]) | results section. | + +--------+ + + + | CAPILLARY BLOOD | Routin | 03/02/2018 | Morbid obesity | Results for this | | GLUCOSE (NO CHG), | e | 2:36 PM | with BMI of 70 and | procedure are in the | | POC | | PDT | over, adult ([facility]) | results section. | + +--------+ + + + | CAPILLARY BLOOD | Routin | 03/02/2018 | Morbid obesity | Results for this | | GLUCOSE (NO CHG), | e | 1:33 PM | with BMI of 70 and | procedure are in the | | POC | | PDT | over, adult ([facility]) | results section. | + +--------+ + + + | CAPILLARY BLOOD | Routin | 03/02/2018 | Morbid obesity | Results for this | | GLUCOSE (NO CHG), | e | 11:36 AM | with BMI of 70 and | procedure are in the | | POC | | PDT | over, adult ([facility]) | results section. | + +--------+ + + + | CAPILLARY BLOOD | Routin | 03/02/2018 | Morbid obesity | Results for this | | GLUCOSE (NO CHG), | e | 10:32 AM | with BMI of 70 and | procedure are in the | | POC | | PDT | over, adult ([facility]) | results section. | + +--------+ + + + | CAPILLARY BLOOD | Routin | 03/02/2018 | Morbid obesity | Results for this | | GLUCOSE (NO CHG), | e | 9:23 AM | with BMI of 70 and | procedure are in the | | POC | | PDT | over, adult ([facility]) | results section. | + +--------+ + + + | CAPILLARY BLOOD | Routin | 03/02/2018 | Morbid obesity | Results for this | | GLUCOSE (NO CHG), | e | 8:36 AM | with BMI of 70 and | procedure are in the | | POC | | PDT | over, adult ([facility]) | results section. | + +--------+ + + + | CAPILLARY BLOOD | Routin | 03/02/2018 | Morbid obesity | Results for this | | GLUCOSE (NO CHG), | e | 7:35 AM | with BMI of 70 and | procedure are in the | | POC | | PDT | over, adult ([facility]) | results section. | + +--------+ + + + | CAPILLARY BLOOD | Routin | 03/02/2018 | Morbid obesity | Results for this | | GLUCOSE (NO CHG), | e | 6:33 AM | with BMI of 70 and | procedure are in the | | POC | | PDT | over, adult ([facility]) | results section. | + +--------+ + + + | CAPILLARY BLOOD | Routin | 03/02/2018 | Morbid obesity | Results for this | | GLUCOSE (NO CHG), | e | 5:28 AM | with BMI of 70 and | procedure are in the | | POC | | PDT | over, adult ([facility]) | results section. | + +--------+ + + + | CAPILLARY BLOOD | Routin | 03/02/2018 | Morbid obesity | Results for this | | GLUCOSE (NO CHG), | e | 4:36 AM | with BMI of 70 and | procedure are in the | | POC | | PDT | over, adult ([facility]) | results section. | + +--------+ + + + | CAPILLARY BLOOD | Routin | 03/02/2018 | Morbid obesity | Results for this | | GLUCOSE (NO CHG), | e | 2:46 AM | with BMI of 70 and | procedure are in the | | POC | | PDT | over, adult ([facility]) | results section. | + +--------+ + + + | CAPILLARY BLOOD | Routin | 03/02/2018 | Morbid obesity | Results for this | | GLUCOSE (NO CHG), | e | 12:32 AM | with BMI of 70 and | procedure are in the | | POC | | PDT | over, adult ([facility]) | results section. | + +--------+ + + + | CAPILLARY BLOOD | Routin | 03/01/2018 | Morbid obesity | Results for this | | GLUCOSE (NO CHG), | e | 10:31 PM | with BMI of 70 and | procedure are in the | | POC | | PDT | over, adult ([facility]) | results section. | + +--------+ + + + | CAPILLARY BLOOD | Routin | 03/01/2018 | Morbid obesity | Results for this | | GLUCOSE (NO CHG), | e | 8:21 PM | with BMI of 70 and | procedure are in the | | POC | | PDT | over, adult ([facility]) | results section. | + +--------+ + [...] POC | | PDT | over, adult ([facility]) | results section. | + +--------+ + + + | CAPILLARY BLOOD | Routin | 03/01/2018 | Morbid obesity | Results for this | | GLUCOSE (NO CHG), | e | 3:31 PM | with BMI of 70 and | procedure are in the | | POC | | PDT | over, adult ([facility]) | results section. | + +--------+ + + + | CAPILLARY BLOOD | Routin | 03/01/2018 | Morbid obesity | Results for this | | GLUCOSE (NO CHG), | e | 3:29 PM | with BMI of 70 and | procedure are in the | | POC | | PDT | over, adult ([facility]) | results section. | + +--------+ + + + | CAPILLARY BLOOD | Routin | 03/01/2018 | Morbid obesity | Results for this | | GLUCOSE (NO CHG), | e | 2:30 PM | with BMI of 70 and | procedure are in the | | POC | | PDT | over, adult ([facility]) | results section. | + +--------+ + + + | CAPILLARY BLOOD | Routin | 03/01/2018 | Morbid obesity | Results for this | | GLUCOSE (NO CHG), | e | 1:35 PM | with BMI of 70 and | procedure are in the | | POC | | PDT | over, adult ([facility]) | results section. | + +--------+ + + + | CAPILLARY BLOOD | Routin | 03/01/2018 | Morbid obesity | Results for this | | GLUCOSE (NO CHG), | e | 12:16 PM | with BMI of 70 and | procedure are in the | | POC | | PDT | over, adult ([facility]) | results section. | + +--------+ + [...] POC | | PDT | over, adult ([facility]) | results section. | + +--------+ + + + | LAPAROSCOPIC | Electi | 03/01/2018 | Morbid obesity | | | NISH-EN-Y GASTRIC | ve | 8:31 AM | ([facility]) | | | BYPASS | Surgic | [...] AMES | [address] | [place], [place] | | | [place] POINT OF CARE | [facility] | [address] | | | TESTS | | | [...] MARQUAM | [address] | [place], [place] | | | JUST[place] DAWN OF CARE | [address] | [address] | | | TESTS | | | [...] - [place] | [address] | [place], [place] | | | [place] OF CARE | [facility] | [address] | | | TESTS | | | [...] - 99 mg/dL | [facility] - | | | GLUCOSE, | | [...] AMES | [address] | [place], [place] | | | [place] OF CARE | [facility] | [address] | | | TESTS | | | [...] AMES | [address] | [place], [place] | | | [place] DAWN OF JAKY | [address] | [address] | | | TESTS | | | [...] + + + + + | [facility] - [place] | [address] | [place], [place] | | | JUST[place] DAWN OF JAKY | [facility] | [address] | | | TESTS | | | [...] - 99 mg/dL | [facility] - | | | GLUCOSE, | | [...] AMES | [address] | [place], [place] | | | [place] POINT OF CARE | [address] | [address] | | | TESTS | | | [...] | [facility] - [place] | [address] | [place], [place] | | | JUST[place] DAWN OF JAKY | [address] | [address] | | | TESTS | | | [...] + + + + + | [facility] - [place] | [address] | [place], [place] | | | JUST[place] DAWN OF JAKY | [facility] | [address] | | | TESTS | | | [...] - 99 mg/dL | [facility] - | | | GLUCOSE, | | [...] AMES | [address] | [place], [place] | | | [place] POINT OF CARE | [address] | [address] | | | TESTS | | | [...] | [facility] - [place] | [address] | [place], [place] | | | [facility] [facility] OF CARE | [address] | [address] | | | TESTS | | | [...] | [facility] - [place] | [address] | [place], [place] | | | JUST[place] DAWN OF JAKY | [facility] | [address] | | | TESTS | | | | + + + + + CAPILLARY BLOOD GLUCOSE (NO CHG), POC (03/02/2018 7:35 AM PDT) + +-------+ + + + | Component | Value | Ref Range | Performed | Pathologist | | | | | At | Signature | + +-------+ + + + | BLOOD | 92 | 70 - 99 mg/dL | [facility] - | | | GLUCOSE, | | [...] YAK[place]AM | [address] | [place], [place] | | | [place] POINT OF CARE | [address] | [address] | | | TESTS | | | [...] + + | Performing | Address | City/State/[facility] | Phone Number | | Organization | | | | + + + + + | [facility] - [place] | [address] | [place], [place] | | | [place] OF CARE | [facility] | [address] | | | TESTS | | | | + + + + + CAPILLARY BLOOD GLUCOSE (NO CHG)VALERIE (03/02/2018 5:28 AM PDT) + +---------+ + [...] [place]WAKU | [address] | [place], [place] | | | [place] OF JAKY | [facility] | [address] | | | TESTS | | | | + + + + + CAPILLARY BLOOD GLUCOSE (NO CHG), POC (03/02/2018 4:36 AM PDT) + +-------+ + + + | Component | Value | Ref Range | Performed | Pathologist | | | | | At | Signature | + +-------+ + + + | BLOOD | 97 | 70 - 99 mg/dL | [facility] - | | | GLUCOSE, | | [...] MARQUAM | [address] | [place], [place] | | | [facility]WN OF [facility] | [address] | [address] | | | TESTS | | | [...] AMES | [address] | [place], [place] | | | [place] OF CARE | [facility] | [address] | | | TESTS | | | [...] MARPATAM | [address] | [place], [place] | | | [facility] OF CARE | [facility] | [address] | | | TESTS | | | [...] - 99 mg/dL | [facility] - | | | GLUCOSE, | | [...] MARQUAM | [address] | [place], [place] | | | [place] POINT OF CARE | [address] | [address] | | | TESTS | | | [...] AMES | [address] | [place], [place] | | | JUST[place] DAWN OF JAKY | [facility] | [address] | | | TESTS | | | [...] KWAKU | [address] | [place], [place] | | | JUST[place] DAWN OF JAKY | [facility] | [address] | | | TESTS | | | [...] - 99 mg/dL | [facility] - | | | GLUCOSE, | | [...] YAK[place]AM | [address] | [place], [place] | | | [place] POINT OF CARE | [address] | [address] | | | TESTS | | | [...] | | | GLUCOSE, | | | Y[place]AM | | | POC | | | [...] | [facility] - [place] | [address] | [place], [place] | | | [facility] DAWN OF CARE | [facility] | [address] | | | TESTS | | | [...] KWAKU | [address] | [place], [place] | | | JUST[place] DAWN OF JAKY | [facility] | [address] | | | TESTS | | | [...] - 99 mg/dL | [facility] - | | | GLUCOSE, | | | [place] | | | POC | | | JSUTINE DAWN | | | | | | [...] KWAKU | [address] | [place], [place] | | | [place] POINT OF CARE | [address] | [address] | | | TESTS | | | [...] + + | Performing | Address | City/State/[facility] | Phone Number | | Organization | | | | + + + + + | [facility] [place] | [address] | [place], [place] | | | JUST[place] DAWN OF JAKY | [facility] | [address] | | | TESTS | | | | + + + + + EGD (ESOPHAGOGASTRODUODENOSCOPY) (03/01/2018 11:21 AM PDT) + + + | Narrative | Performed At | + + + | Ion Castanon MD 03/01/2018 12:25 PM Date of Procedure: | | | 03/01/18 Primary Surgeon: Ion Castanon MD Co Surgeon or | | | recreational assistant: Eldon Gonzalez MD, Chief Resident Alexx [...] The jejunum was divided with 60 mm Blum stapler with white | | | load [...] created in each limb and a 60mm Blum stapler | | | with white load was fired to create a [id number]-[id number] | | | jejunojejunostomy. The anastamosis was confirmed to be widely | | | patent and hemostatic. The common enterotomy was closed by placing | | | 2 stay sutures along the enterotomy for retraction and firing an | | | Blum 60mm stapler with white load across the [...] | | | was entered. The 60mm Blum stapler with blue load was placed | [...] blue load of the 60mm stapler. The Blum was then fired | | | longitudinally towards the angle of His to create the gastric pouch, | | | leaving the gastrotomy from foreign body removal, on the pouch. | | | Dissection was performed retrogastric to connect posterior and | | | anterior dissection planes and ensure adequate fundus exclusion. | | | Additional fires of the Blum stapler were performed with blue | | [...] with | | | 5 mm clip nursing home assistant. A 25mm Orvil was passed transorally by [...] was closed with 60mm | | | Blum stapler with a white load. Medially and [...] was present | | | as my recreational assistant for the entire procedure, given the technically | | | challenging nature of this procedure. She assisted in all critical | | | steps of the procedure. Dr. Gonzalez was present for endoscopy at the | | | end of the procedure. Ion Castanon MD, FACS, [facility] | | | Bariatric Surgery | | [...] MD Co Surgeon or | | | recreational assistant: Eldon Gonzalez MD, Chief Resident Alexx [...] The jejunum was divided with 60 mm Blum stapler with white | | | load [...] created in each limb and a 60mm Blum stapler | | | with white load was fired to create a fklq-[id number]-lrad | | | jejunojejunostomy. The anastamosis was confirmed to be widely | | | patent and hemostatic. The common enterotomy was closed by placing | | | 2 stay sutures along the enterotomy for retraction and firing an | | | Blum 60mm stapler with white load across the [...] | | | was entered. The 60mm Blum stapler with blue load was placed | [...] blue load of the 60mm stapler. The Blum was then fired | | | longitudinally towards the angle of His to create the gastric pouch, | | | leaving the gastrotomy from foreign body removal, on the pouch. | | | Dissection was performed retrogastric to connect posterior and | | | anterior dissection planes and ensure adequate fundus exclusion. | | | Additional fires of the Blum stapler were performed with blue | | [...] with | | | 5 mm clip nursing home assistant. A 25mm Orvil was passed transorally by [...] was closed with 60mm | | | Blum stapler with a white load. Medially and [...] was present | | | as my recreational assistant for the entire procedure, given the technically | | | challenging nature of this procedure. She assisted in all critical | | | steps of the procedure. Dr. Gonzalez was present for endoscopy at the | | | end of the procedure. Ion Castanon MD, FACS, [facility] | | | Bariatric Surgery | | [...] [place] | [address] | [place], [place] | | | JUST[place] DAWN OF [place] | [address] | [address] | | | TESTS | | | [...] with BMI of 70 and over, adult ([facility]) - Primary | + + | Diabetes mellitus type 2 without retinopathy ([facility]) Type II or unspecified type | | [...] | 1,000 mg 1,000 mg, oral, EVERY | | 18 12:12 | | | | | HOURS NEEDED, Starting Thu | | PM PDT | | | [...] | | | | | | | 18 at 2100 | | | | | [...] | | | | First dose on Thu03/02/18 at 0900 | | [...] | | | | | | Until 03/01/18 at 0803 | | | | | [...] +-------+ +-------+---+---------+ +-------+ +-------+---+---------+ | Given | 08/07/20 | 40 mg | | Abdomen | [...] +-------+ +-------+---+---+ +-------+ +-------+---+---+ | Given | 08/06/20 | 60 mg | | | | [...] +-------+---+ | Rate/Dose Change | 03/02/20 | 0.5 | 0.5 | | | [...] | | | (after last modification) on Thu | | | | | | | 03/02/18 at 1800, Last dose on Thu | | | | | | | [...] PDT | | | | | Until 03/02/18 at 0800 | | | | | [...] | | | | | | | Thu03/03/18 at 0530 | | | | | [...] | | | 03/01/18 at 1730, Until Thu03/03/18 | | | | | | | [...] | | | PRN, 1 dose, Starting Thu03/01/18 | | | | | | [...]
--- OUTSIDE RECORDS SUMMARY | ~2019-12-02 | XMS | Encounter Summary ---
Demographics + + + | Address | [address] | | | [place] [address] | + + + | Home Phone [...] + | Katalina Padilla | ECON | [address] | | | | | [place], [place] | | | | | [address] | | + + + + + | Ellie Vang | ECON | Unknown | | + + + + + Care Team Providers + +------+ + | Care Take Out Waiter Name | Role | Phone | + [...] | 2015 | Visit | Center at [facility] [address] | (Primary Dx); | | | | [address] yesenia Cruger | [facility] [address] | 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for [employer] and | [place], [place] | with insulin therapy | | | | [facility] [address] | [address] | (HCC) | | | | [place], [place] | [phone] | | | | | [address] | | | | | | [phone] | | | +--------+---------+ + + + [...] documented in this encounter Progress Notes Rossana Espinoza, HA - 12/26/2014 1:33 PM PDTFormatting of this note might be different fro m the original. Referring Provider: Fadi Goodrich DO [facility], Pre-Bariatric Surgery Visit Follow-up diet consult prior to having Frandy-En-Y gastric bypass surgery. Documented Time of Visit: 1:30 to 1:55 (25 minutes [id number] with patient). Pt seen tog ether with Rossana Espinoza RD (training) SUBJECTIVE: Working with RN to get access to [employer]il me water exercises. States she was down to 374lbs by following LRD but with complications (n/v, fainting) - need to obtain records from PCP [facility]. Food Allergies: No Current Physical Activity: Nothing - plans to start swimming this week Diet Recall Dunwoody (100kcal) + Activia Light - 60kcal Atkins [...] lifestyle and be havioral changes discussed today. lEzbieta continues to struggle to lose weight to qualify for bariatric surgery. She appears to be making her best effort to reduce intake and follow pilar mmended diet. She reports frustration because she is getting conflicting diet recommendation s from providers involved in her care. We discussed today how we are all trying to figure ou t the best and safest plan for her to meet her weight loss goals. Elzbieta verbalized understan raquel. I am hopeful that the addition of [...] post-surgery diet progression. 4. Call or send [employer] message to dietitian with any questions. Contact information was provided. Follow up with dietitian via telephone 1 week after beginning water exercises for weight ch addie. Yuli Childs RD, [facility], [place] Pager# [phone] Rossana Espinoza MS, RD Pgr #[phone] documented in this enco unter Plan of Treatment +--------+---------+ + + + | Date | Type | Specialty | Care Team | Description | +--------+---------+ + + + | 03/15/ | Office | Cardiology | Randell Franks, | | | 2019 | Visit | | MD [address] | | | | | | [place], [place] | | | | | | [address] | | | | | | [phone] | | | | | | | | +--------+---------+ + + + documented as of this encounter Procedures + +--------+ + + + | Procedure Name | Priori | Date/Time | Associated Diagnosis | Comments | | | ty | | | | + +--------+ + + + | [place] MNT RE-ASSESSMNT | Routin | 12/27/2014 | Morbid obesity | | | X15MIN | e | 8:17 AM | ([facility]) Diabetes | | | | | PDT | mellitus with | | | | | | insulin therapy | | | | | | ([facility]) | | + +--------+ + + + documented in this encounter Visit Diagnoses + + | Diagnosis | + + | Morbid obesity (HCC) - Primary Morbid obesity | + + | Diabetes mellitus with insulin therapy (HCC) | + + documented in this encounter
--- OUTSIDE RECORDS SUMMARY | ~2019-12-02 | XMS | Encounter Summary ---
Demographics + + + | Address | [address] | | | [place] [address] | + + + | Home Phone [...] [place], [place] | | | | | [address] | | + + + + + | Ellie Vang | ECON | Unknown | | + + + + + Care Team Providers + +------+ + | Care Pilot Supervisor Name | Role | Phone | + +------+ + | Kenyatta Cardenas MD | PCP | | + +------+ + Encounter Details +--------+--------+ + + + | Date | Type | Department | Care Team | Description | +--------+--------+ + + + | 09/08/ | Travel | | | | | [...] Flannery | | | | | | [place], [place] | | | | | | [address] | | | | | | [phone] | | | | | | | | +--------+---------+ + + + documented as of this encounter Visit Diagnoses Not on filedocumented in this encounter"
--- OUTSIDE RECORDS SUMMARY | ~2019-12-02 | XMS | Encounter Summary ---
Demographics + + + | Address | [address] | | | [place] [address] | + + + | Home Phone [...] + | Katalina Padilla | ECON | [address] | | | | | [place], [place] | | | | | [address] | | + + + + + | Ellie Vang | ECON | Unknown | | + + + + + Care Team Providers + +------+ + | Care Forger Helper Name | Role | Phone | [...] | | 2016 | | Preventive at [facility] | MD [address] | ([place]) | | | | [address] | [place], [place] | | | | | Mailcode: Mihaela | [address] | | | | | [facility] | [phone] | | | | | and Erick, | | | | | | [address] | | | | | | [place], [place] | | | | | | [address] | | | | | | [phone] | | | +--------+ + + + [...] Flannery | | | | | | [place], [place] | | | | | | [address] | | | | | | [phone] | | | | | | | | +--------+---------+ + + + documented as of this encounter Visit Diagnoses Not on filedocumented in this encounter"
--- OUTSIDE RECORDS SUMMARY | ~2019-12-02 | XMS | Encounter Summary ---
Demographics + + + | Address | [address] | | | [place] [address] | + + + | Home Phone | | + + + | Preferred Language | Unknown | + + + | Marital Status | | + + + | Methodist Affiliation | Unknown | + + + | Race | Unknown | + + + | Ethnic Group | Unknown | + + + Author + + + | Author | [facility] | | | and Jeffana | + + + | Organization | [facility] | | | and [...] Team Providers + +------+ + | Care Pan Tank Worker Name | Role | Phone | + +------+ + | Jorje Hill | PCP | | + +------+ + Encounter Details +--------+ + + + + | Date | Type | Department | Care Team | Description | +--------+ + + + + | 06/20/ | Hospital | [facility] | Dharmesh Melchor | Canceled (OTHER) | | 2019 | Encounter | CENTER IR INTRA OP | MD [address] | | | | | [address] | [place]eban | | | | | [place], [place] | [place] [address] | | | | | [address] | [phone] | | | | | [phone] | | | | | | | Christian Dawson MD | | | | | | [address] | | | | | | [place], [place] | | | | | | [address] | | | | | | | [...] RICHEY | | | | | | [place] [address] | | | | | | [phone] | | | | | | | [...]
--- OUTSIDE RECORDS SUMMARY | ~2019-12-02 | XMS | Encounter Summary ---
Demographics + + + | Address | [address] | | | [place] [address] | + + + | Home Phone [...] [place], [place] | | | | | [address] | | + + + + + | Ellie Vang | ECON | Unknown | | + + + + + Care Team Providers + +------+ + | Care Code Enforcement Officer Name | Role | Phone | + +------+ + | Fadi Goodrich DO | PCP | | + +------+ + Encounter Details +--------+ + + + + | Date | Type | Department | Care Team | Description | +--------+ + + + + | 03/16/ | Telephone | Digestive Health | Ronna Clarke, | | | 2018 | | Center at [facility] [address] | ACNP [address] | | | | | [address] | Ave [place], [place] | | | | | Mailcode: [place] | [address] | | | | | for Health and | [phone] | | | | | [facility] 2 | | | | | | [place], [place] | | | | | | [address] | | | | | | | [...] Flannery | | | | | | [facility] [place] | | | | | | [address] | | | | | | [phone] | | | | | | | | +--------+---------+ + + + documented as of this encounter Visit Diagnoses Not on filedocumented in this encounter"
--- OUTSIDE RECORDS SUMMARY | ~2019-12-02 | XMS | Encounter Summary ---
Demographics + + + | Address | [address] | | | [place] [address] | + + + | Home Phone [...] + | Katalina Padilla | ECON | [address] | | | | | [place], [place] | | | | | [address] | | + + + + + | Ellie Vang | ECON | Unknown | | + + + + + Care Team Providers + +------+ + | Care Heel Brusher Name | Role | Phone | + +------+ + | Kenyatta Cardenas MD | PCP | | + +------+ + Encounter Details +--------+ + + + + | Date | Type | Department | Care Team | Description | +--------+ + + + + | 01/11/ | Pharmacy | Outpatient Retail | | | | 2018 | Visit | [facility] | | | | | | [address] | | | | | | [address] [place], [place] | | | | | | [address] | | | | | | [phone] | | | +--------+ + + + [...] Flannery | | | | | | [place], [place] | | | | | | [address] | | | | | | [phone] | | | | | | | | +--------+---------+ + + + documented as of this encounter Visit Diagnoses Not on filedocumented in this encounter"
--- OUTSIDE RECORDS SUMMARY | ~2019-12-02 | XMS | Encounter Summary ---
Demographics + + + | Address | [address] | | | [place] [address] | + + + | Home Phone [...] + | Katalina Padilla | ECON | [address] | | | | | [place], [place] | | | | | [address] | | + + + + + | Ellie Vang | ECON | Unknown | | + + + + + Care Team Providers + +------+ + | Care Steak Sauce Maker Name | Role | Phone | [...] [address] | | | | | ([facility]) | [address] | [address] | | | | | Procedures | [place], [place] | [place], [place] | | | | | CONSULT TO | [address] | [address] | | | | | CAR | Phone: | Phone: | | | | | PREVENTATIVE | [phone] | [phone] | | | | | [facility] - | Fax: | Fax: | | | | | LIPIDS | [phone] | [phone] | +--------+--------+ + + + + Reason [...] | | 2 diabetes | [place], | [place], [place] | | | | | mellitus | [place] [address] | [address] | | | | | without | Phone: | Phone: | | | | | complication | [phone] | [phone] | | | | | (HCC) | Fax: | Fax: | | | | | Procedures | [phone] | [phone] | | | | | [place] EST | | | | | | [...] | 2017 | Visit | Preventive at [facility] | MD [address] | hypertension | | | | [address] | [facility] [place] | (Primary Dx); Right | | | | Mailcode: CH9A | [address] | heart failure (HCC) | | | | [facility] | [phone] | | | | | and Healing, | | | | | | Building [address] | | | | | | [place], [place] | | | | | | [address] | | | | | | [phone] | | | +--------+---------+ + + + [...] 1 tablet by mouth once daily CALCIUM CRB&JUD-V1-UBH95-GENIS ORAL Take 2 tablets by mouth two [...] | | 2019 | Visit | | [address] | | | | | | [place], [place] | | | | | | [address] | | | | | | [phone] | | | | | | | | +--------+---------+ + + + documented as of this encounter Visit Diagnoses + + | Diagnosis | + + | Essential hypertension - Primary | + + | Right heart failure (HCC) Congestive heart failure, unspecified | + + documented in this encounter
--- OUTSIDE RECORDS SUMMARY | ~2019-12-02 | XMS | Encounter Summary ---
Demographics + + + | Address | [address] | | | [place] [address] | + + + | Home Phone [...] [place], [place] | | | | | [address] | | + + + + + | Ellie Vang | ECON | Unknown | | + + + + + Care Team Providers + +------+ + | Care Stucco Applicator Name | Role | Phone | + [...] [place] | | | | | | [address] | | | | | | [phone] | | | | | | | | +--------+---------+ + + + documented as of this encounter Visit Diagnoses Not on filedocumented in this encounter"
--- OUTSIDE RECORDS SUMMARY | ~2019-12-02 | XMS | Encounter Summary ---
Demographics + + + | Address | [address] | | | [place] [address] | + + + | Home Phone [...] + | Katalina Padilla | ECON | [address] | | | | | [place], [place] | | | | | [address] | | + + + + + | Ellie Vang | ECON | Unknown | | + + + + + Care Team Providers + +------+ + | Care Associate Professor Of Art History Name | Role | Phone | + [...] | | | (dyspnea on | [address] | | | | | | exertion) | [address] | | | | | | Procedures | [place], [place] | | | | | | TRANSTHORACI | [address] | | | | | | C | Phone: | | | | | | ECHOCARDIOGR | [phone] | | | | | | AM, ADULT | Fax: | | | | | | | [phone] | | +--------+--------+ + + + + [...] | 2016 | Visit | Preventive at [facility] | [address] | exertion) (Primary | | | | [address] | [place], [place] | Dx) | | | | Mailcode: CH9A | [address] | | | | | [facility] | [phone] | | | | | and [address], | | | | | | Building [address] | | | | | | [place], [place] | | | | | | [address] | | | | | | [phone] | | | +--------+---------+ + + + [...] + documented in this encounter Progress Notes Ranedll Franks MD - 11/06/2015 12:29 PM PDTFormatting of this note might be different f rom the original. Reason for visit: Follow-up T2DM and weight management PCP: Fadi Walker, DO Patient Active Problem List Diagnosis Date [...] 500 mg by mouth once daily. CALCIUM CRB&HWE-C4-JKS65-GENIS ORAL Take 1 tablet by mouth two [...] Since I saw Ms. Livia singh last, 6 months ago, she had initially [...] himself to the local hospit al in [place] and so this has been delayed. ROS: [...] She will continue present management under the viri dance of her PCP, monitor glucose control. 4) Morbid obesity: She had beenpting dieting to lose the additional weight requested by [facility]. This current weight [...] 2020 | Visit | | [address] | | | | | | [place], [place] | | | | | | [address] | | | | | | [phone] | | | | | | | [...]
--- OUTSIDE RECORDS SUMMARY | ~2019-12-02 | XMS | Encounter Summary ---
Demographics + + + | Address | [address] | | | [place] [address] | + + + | Home Phone [...] + | Katalina Padilla | ECON | [address] | | | | | [place], [place] | | | | | [address] | | + + + + + | Ellie Vang | ECON | Unknown | | + + + + + Care Team Providers + +------+ + | Care Outpatient Therapist Name | Role | Phone | [...] [address] Mailcode: | [place], [place] | | | | | [facility] | [address] | | | | | Health and Healing, | [phone] | | | | | [address] | | | | | | Floor [place], [place] | | | | | | [address] | | | | | | [phone] | | | +--------+ + + + [...] | | 0 | | | | CRB&PBE-M7-DUQ88-GEN | mouth two times | | | [...] Flannery | | | | | | [place], [place] | | | | | | [address] | | | | | | [phone] | | | | | | | [...] + + + | EXAM: Esophagram with computer typesetter keyliner radiograph HISTORY: RYGB 03/01/2018, | [facility] | | vomiting/pain ever since COMPARISON: 04/27/2018 CT TECHNIQUE: | RADIOLOGY VOICE | | Industrial Sewer radiograph was performed. Single contrast exam of the esophagus, | RECOGNITION 2 | | gastric pouch, and gastrojejunostomy in upright positioning. | | | Radiation dose reduction technique was maximized where appropriate | | | using pulsed fluoroscopy and fluoro-store images. Fluoro Time 57 | | | second(s) FINDINGS: Industrial Sewer shows stone in the upper pole of [...] AM PST EXAM: Esophagram | | with computer typesetter keyliner radiograph HISTORY: RYGB 03/01/2018, vomiting/pain ever since COMPARISON: | | 04/27/2018 CT TECHNIQUE: Industrial Sewer radiograph was performed. Single contrast exam of the | | esophagus, gastric pouch, and gastrojejunostomy in upright positioning. Radiation dose | | reduction technique was maximized where appropriate using pulsed fluoroscopy and | | fluoro-store images. Fluoro Time 57 second(s) FINDINGS:Industrial Sewer shows stone in the upper | | [...]
--- OUTSIDE RECORDS SUMMARY | ~2019-12-02 | XMS | Encounter Summary ---
Demographics + + + | Address | [address] | | | [place] [address] | + + + | Home Phone [...] [place], [place] | | | | | [address] | | + + + + + | Ellie Vang | ECON | Unknown | | + + + + + Care Team Providers + +------+ + | Care Fixture Repairer Fabricator Name | Role | Phone | [...] | | 2019 | | Center at [facility] [address] | | Review | | | | [address] | | | | | | Mailcode: [place] | | | | | | [facility] | | | | | | [facility] 2 | | | | | | [place], [place] | | | | | | [address] | | | | | | [phone] | | | +--------+ + + + [...] Flannery | | | | | | [place] | | | | | | [address] | | | | | | [phone] | | | | | | | | +--------+---------+ + + + documented as of this encounter Visit Diagnoses Not on filedocumented in this encounter"
--- OUTSIDE RECORDS SUMMARY | ~2019-12-02 | XMS | Encounter Summary ---
Demographics + + + | Address | [address] | | | [place] [address] | + + + | Home Phone [...] + | Katalina Padilla | ECON | [address] | | | | | [place], [place] | | | | | [address] | | + + + + + | Ellie Vang | ECON | Unknown | | + + + + + Care Team Providers + +------+ + | Care Power Distribution Engineer Name | Role | Phone | [...] | | 2014 | | Center at [facility] [address] | [address] | (11/03 and 11/06 phone | | | | [address] [facility] | Lesly Gutiérrez [facility], | calls) | | | | for Health and | [place] [address] | | | | | [facility] 2 | | | | | | [place], [place] | | | | | | [address] | | | | | | [phone] | | | +--------+ + + + [...] Flannery | | | | | | [place], [place] | | | | | | [address] | | | | | | [phone] | | | | | | | | +--------+---------+ + + + documented as of this encounter Visit Diagnoses Not on filedocumented in this encounter"
--- OUTSIDE RECORDS SUMMARY | ~2019-12-02 | XMS | Encounter Summary ---
Demographics + + + | Address | [address] | | | [place] [address] | + + + | Home Phone [...] [place], [place] | | | | | [address] | | + + + + + | Ellie Vang | ECON | Unknown | | + + + + + Care Team Providers + +------+ + | Care Labor Operator Name | Role | Phone | [...] + + | 06/23/ | Hospital | [facility] [address] | Kaleb Wilcox MD | | | 2017 | Encounter | [address] | [address] | | | | | [address] | [place], [place] | | | | | [place], | [address] | | | | | [place] [address] | [phone] | | | | | [phone] | | | +--------+ + + + [...] of this encounter Discharge Instructions Instructions Keerthi Bill, KELSIE - 06/23/2018Home Care Instructions after EGD (Upper [...] hours or on weekends and holiday [facility] Sticker toll free [phone] and have the GI doctor religion department chair paged. The provider who performed your procedure is: Dr. Wilcox Results of your EGD: Dilation performed. You may resume your regular diet. Follow up Appointments with: Follow up with Dr. Pandey in bariatric surgery, thank you for choosing [facility]! Your primary care provider or referring provider [...] | | 0 | | | | CRB&CKL-G9-KPO63-GEN | mouth two times | | | [...] Y gastric bypass Sedation: General anesthesia in [facility] Findings: Normal esophagus Normal appearing gastric pouch [...] 2:35 PM PST PRE PROCEDURE NOTE: MR# [id number] Subjective: Elzbieta Cristina is a 43 y.o. [...] [address] | | | | | | [place], [place] | | | | | | [address] | | | | | | [phone] | | | | | | | [...] -----+ | MRN: | [facility] | | [id number] Date: 06/23/2018Patient Name: Elzbieta Curtis #: | ENDOSCOP Y | | [id number] of : 1975CSN: [id number] Type: | | | AmbulatoryRoom: SORProcedure: Upper GI | | | endoscopyIndications: Nausea with vomiting, Status post | | | Rzbb-nr-KQbzzfbulp: KALEB WILCOX MD (Doctor), JOSE | | | NASIMA Urban And Regional Planner | | | (Urban And Regional Planner)Referring MD: DANIELLE GARCÍAPRequestdonya | | | Provider: [...] | | | The Olympus [id number]-[id number] Gastroscope #[id number] was | | | introduced through the [...] endoscope without resistance. The | | | chfnv-nu-adtodxp limb was characterized by healthy appearing | [...] Initiated On: | | | 06/23/2018 3:58 [facility] Letter to: FADI MICHAEL DO | | [...] | | + +---------+ + + VBG-FULL VALERIE ALEXANDER (06/23/2018 2:11 PM PST) + + + [...] | | POC | | | JUSTINE ADWN | | [...] | | | POC | | | [place], POINT | | [...] | | | POC | | | [place] POINT | | [...] MARQUAM | [address] | [place], [place] | | | [place] POINT OF CARE | [address] | [address] | | | TESTS | | | [...] | | | | | | Until [facility] 06/24/18 at 0027, | | | [...] Thu06/23/18 at 1532, | | | Until Jasmyne 06/24/18 at 0027, | | | nausea/vomiting [...]
--- OUTSIDE RECORDS SUMMARY | ~2019-12-02 | XMS | Encounter Summary ---
Demographics + + + | Address | [address] | | | [place] [address] | + + + | Home Phone [...] [place], [place] | | | | | [address] | | + + + + + | Ellie Vang | ECON | Unknown | | + + + + + Care Team Providers + +------+ + | Care Market Research Interviewer Name | Role | Phone | [...] [address] | | | | | [place] at | [place], [place] | | | | | [place] [address] | [address] | | | | | [facility] | [phone] | | | | | [facility] | | | | | | [place], [place] | | | | | | [address] | | | | | | [phone] | | | +--------+--------+ + + + [...] Flannery | | | | | | [place] | | | | | | [address] | | | | | | [phone] | | | | | | | | +--------+---------+ + + + documented as of this encounter Visit Diagnoses Not on filedocumented in this encounter"
--- OUTSIDE RECORDS SUMMARY | ~2019-12-02 | XMS | Encounter Summary ---
Demographics + + + | Address | [address] | | | [place] [address] | + + + | Home Phone [...] [place], [place] | | | | | [address] | | + + + + + | Ellie Vang | ECON | Unknown | | + + + + + Care Team Providers + +------+ + | Care Electricians Top Helper Name | Role | Phone | [...] [address] | | | | | | [place], [place] | | | | | | [address] | | | | | | [phone] | | | | | | | | +--------+---------+ + + + documented as of this encounter Visit Diagnoses Not on filedocumented in this encounter"
--- OUTSIDE RECORDS SUMMARY | ~2019-12-02 | XMS | Encounter Summary ---
Demographics + + + | Address | [address] | | | [place] [address] | + + + | Home Phone | | + + + | Preferred Language | Unknown | + + + | Marital Status | | + + + | Yazidi Affiliation | Unknown | + + + | Race | Unknown | + + + | Ethnic Group | Unknown | + + + Author + + + | Author | [facility] | | | and Jeffana | + + + | Organization | [facility] | | | and Jeffana [...] Team Providers + +------+ + | Care Occasional Babysitter Name | Role | Phone | + +------+ + PCP | Unavailable | + +------+ + Reason for Visit [...] Closed | | Gastroenterol | Diagnoses | [place], | [place], | | | | ogy | Other | Kenyatta Huizar, | Jyoti, | | | | | specified | MD [address] | GEOLOGICAL ENGINEER [address] | | | | | diseases of | [address] | [place], [place] | | | | | liver | [place], | [address] [place] | | | | | Procedures | [place] | [place] | | | | | office visit | [address] | [address] Phone: | | | | | | Phone: | [phone] | | | | | | [phone] | Fax: | | | | | | Fax: | [phone] | | | | | | [phone] | | +--------+--------+ + + + + Encounter Details +--------+---------+ + + + | Date | Type | Department | Care Team | Description | +--------+---------+ + + + | 02/15/ | Office | [facility] [place] | [place], | Fatty infiltration | | 2019 | Visit | GASTROENTEROLOGY | SELINA Montes [address] | of liver (Primary | | | | [address] [place] | [place], [place] [address] | Dx); History of | | | | [address] [place], [place] | [place], [place] | Frandy-en-Y gastric | | | | [address] | [address] | bypass; Itching; | | | | [phone] | | Diarrhea, | | | | [...] + | Blood Pressure | 140/86 | 02/15/2019 9:22 AM | | | | | PDT | | + + + + + | Pulse | 92 | 02/15/2019 9:22 AM | | | | | PDT | | + + + + + | Temperature | 36.7 C (98 F) | 02/15/2019 9:22 AM | | | | | PDT | | + + + + + | Respiratory Rate | 18 | 02/15/2019 9:22 AM | | | | | PDT | | + + + + + | Oxygen Saturation | 95% | 02/15/2019 9:22 AM | | | | | PDT | | + + + + + | Inhaled Oxygen | - | - | | | Concentration | | | | + + + + + | Weight | 123.9 kg (273 lb 2.4 | 02/15/2019 9:22 AM | | | | oz) | PDT | | + + + + + | Height | 147.3 cm (4' 10") | 02/15/2019 9:22 AM | | | | | PDT | | + + + + + | Body Mass Index | 57.09 | 02/15/2019 9:22 AM | | | | | PDT | | + + + + + documented in this encounter Progress Notes Kayla KimianneSELINA - 02/15/2019 10:00 AM PDTFormatting of this note might be differe nt from the original. PATIENT NAME: Elzbieta Cristina : 1975: AGE: 43 y.o. REFERRED BY: Kenyatta Cardenas PRIMARY CARE: Kenyatta Cardenas MD Subjective: CHIEF COMPLAINT: Elzbieta Cristina is a 43 y.o. female referred by Kenyatta Cardenas MD for evaluation and treatment of abnormal imaging of liver. HISTORY OF PRESENT ILLNESS: She has history of Bertha en Y gastric bypass done 03/03/2018 at [facility]. She reports that approximately 3 months ago, [...] well. She is scheduled to see her [facility] surgeons within the next 2 weeks. She [...] right ventricular diastolic dysfunction (HCC) 10/26/2015 Overview: [facility] Last Assessment & Plan: Patient with morbid [...] o besity Pickwickian syndrome Recent admission to [facility] for 100lb weight gain- DC on [...] w Diabetes mellitus type 2 without retinopathy ([facility]) 04/14/2013 Diabetes mellitus with insulin therapy ([facility]) 12/27/2014 DM (diabetes mellitus) ([facility]) 05/09/2016 Overview: A1c 5.29 Aug 2014 [...] with morbid obesity, she is enrolled in [facility] bariatric program. She has lost approximately 50 [...] Plan: TSH WNL 10/2015. She is on armour thyroid as OP. -TSH WNL -continu e supplementation here Hypoventilation associated with obesity (HCC) 06/16/2013 Last Assessment & Plan: [facility] Bariatric Program, has lost 50lbs. STEFANO (iron deficiency anemia) 02/03/2019 Overview: Presumed due to menses. Venofer 200 qd x 30 October 2015 [facility] Last Assessment & P sharon: Hgb appears [...] She is to follow-up with surgeons at [facility] as planned. Patient is to call with any question or concerns. Any fevers, chills, chest pain, SOB or o ther serious symptoms patient is to call the office or go to ER CC: Kenyatta Cardenas MD This note was dictated using voice recognition software. Please contact me if there are an y questions regarding its content.Electronically signed by SELINA Dukes at 02/15 10:45 AM PDTdocumented in this encounter Plan of Treatment +--------+---------+ + + + | Date | Type | Specialty | Care Team | Description | +--------+---------+ + + + | 03/05/ | Office | Cardiology | Sulema Altamirano | | | 2019 | Visit | | [address] | | | | | | [address] | | | | | | [place] [address] | | | | | | [phone] | | | | | | | | +--------+---------+ + + + + +------+--------+ + + | Name | Type | Priori | Associated Diagnoses | Order Schedule | | | | ty | | | + +------+--------+ + + | Comprehensive | Lab | Routin | Fatty infiltration | Expected: | | Metabolic Panel | | e | of liver History | 02/15/2019, Expires: | | | | | of Frandy-en-Y gastric | 06/15/2019 | | | | | bypass Itching | | | | | | Diarrhea, | | | | | | unspecified type | | + +------+--------+ + + documented [...]
--- OUTSIDE RECORDS SUMMARY | ~2019-12-02 | XMS | Encounter Summary ---
Demographics + + + | Address | [address] | | | [place] [address] | + + + | Home Phone [...] + | Katalina Padilla | ECON | [address] | | | | | [place], [place] | | | | | [address] | | + + + + + | Ellie Vang | ECON | Unknown | | + + + + + Care Team Providers + +------+ + | Care Hay Farmer Name | Role | Phone | + +------+ + | Fadi Goodrich DO | PCP | | + +------+ + Encounter Details +--------+ + + + + | Date | Type | Department | Care Team | Description | +--------+ + + + + | 06/09/ | Abstract | Digestive Health | Kathy Feldman, | | | 2012 | | Center at [facility] [address] | FAMILY RESOURCE MANAGEMENT PROFESSOR [address] | | | | | [address] | [facility] 350 | | | | | Mailcode: Center | [place], [place] | | | | | [facility] and | [address] | | | | | [facility] 2 | [phone] | | | | | [place], [place] | | | | | | [address] | | | | | | [phone] | | | +--------+ + + + [...] Flannery | | | | | | [place], [place] | | | | | | [address] | | | | | | [phone] | | | | | | | | +--------+---------+ + + + documented as of this encounter Visit Diagnoses Not on filedocumented in this encounter"
--- OUTSIDE RECORDS SUMMARY | ~2019-12-02 | XMS | Encounter Summary ---
Demographics + + + | Address | [address] | | | [place] [address] | + + + | Home Phone [...] + | Katalina Padilla | ECON | [address] | | | | | [place], [place] | | | | | [address] | | + + + + + | Ellie Vang | ECON | Unknown | | + + + + + Care Team Providers + +------+ + | Care Carpentry Teacher Name | Role | Phone | [...] | | | | | bypass | [place], | [facility], | | | | | Nausea and | [place] | [address] | | | | | vomiting, | [address] | [place], [place] | | | | | intractabili | Phone: | [address] | | | | | ty of | | Phone: | | | | | vomiting not | Fax: | [phone] | | | | | specified, | [phone] | Fax: | | | | | unspecified | | [phone] | | | | | vomiting | [...] | | | | | | CONTRAST MT | | | | | | | CT SCAN OF | | | | | | | ABDOMEN | | | | | | | CONTRAST MT | | | | | | [...] | | | | | bypass | [place], | [facility], | | | | | Nausea and | [place] | [address] Floor | | | | | vomiting, | [address] | [place], [place] | | | | | intractabili | Phone: | [address] | | | | | ty of | | Phone: | | | | | vomiting not | Fax: | [phone] | | | | | specified, | [phone] | Fax: | | | | | unspecified | | [phone] | | | | | vomiting | [...] | | | | | | CONTRAST MT | | | | | | | CT SCAN OF | | | | | | | ABDOMEN | | | | | | | CONTRAST MT | | | | | | [...] Services at [facility] | AGACNP [address] | | | | | [address] | Alma Delia [place], [place] | | | | | Lesly Gutiérrez [facility] | [address] | | | | | [address] | [phone] | | | | | [place], [place] | | | | | | [address] | | | | | | [phone] | | | +--------+ + + + [...] | | 0 | | | | [id number] | mouth two times | | | [...] | 03/15/ | Office | Cardiology | TinyRandell, | | | 2019 | Visit | | MD [address] | | | | | | [place], [place] | | | | | | [address] | | | | | | [phone] | | | | | | | [...]
--- OUTSIDE RECORDS SUMMARY | ~2019-12-02 | XMS | Encounter Summary ---
Demographics + + + | Address | [address] | | | [place] [address] | + + + | Home Phone [...] [place], [place] | | | | | [address] | | + + + + + | Ellie Vang | ECON | Unknown | | + + + + + Care Team Providers + +------+ + | Care Nuclear Chemistry Technician Name | Role | Phone | [...] | | 2020 | | Center at [facility] [address] | MD J[address] | | | | | [address] | [address] | | | | | Mailcode: Center | [place], [place] | | | | | [facility] and | [address] | | | | | [facility] 2 | [phone] | | | | | [place], [place] | | | | | | [address] | | | | | | [phone] | | | +--------+ + + + [...] [place] | | | | | | [address] | | | | | | [phone] | | | | | | | | +--------+---------+ + + + documented as of this encounter Visit Diagnoses Not on filedocumented in this encounter"
--- OUTSIDE RECORDS SUMMARY | ~2019-12-02 | XMS | Encounter Summary ---
Demographics + + + | Address | [address] | | | [place] [address] | + + + | Home Phone [...] + | Katalina Padilla | ECON | [address] | | | | | [place], [place] | | | | | [address] | | + + + + + | Ellie Vang | ECON | Unknown | | + + + + + Care Team Providers + +------+ + | Care Shelter Case Manager Name | Role | Phone | [...] | | 2015 | | Center at [facility] [address] | [address] | | | | | [facility] | Lesly Gutiérrez [place], | | | | | [facility] and | [place] [address] | | | | | [place] [address] | | | | | | [place], [place] | | | | | | [address] | | | | | | [phone] | | | +--------+ + + + [...] Flannery | | | | | | [place], [place] | | | | | | [address] | | | | | | [phone] | | | | | | | | +--------+---------+ + + + documented as of this encounter Visit Diagnoses Not on filedocumented in this encounter"
--- OUTSIDE RECORDS SUMMARY | ~2019-12-02 | XMS | Encounter Summary ---
Demographics + + + | Address | [address] | | | [place] [address] | + + + | Home Phone [...] [place], [place] | | | | | [address] | | + + + + + | Ellie Vang | ECON | Unknown | | + + + + + Care Team Providers + +------+ + | Care Senior Informatica Etl Developer Name | Role | Phone | + +------+ + | Kenyatta Cardenas MD | PCP | | + +------+ + Encounter Details +--------+--------+ + + + | Date | Type | Department | Care Team | Description | +--------+--------+ + + + | 05/13/ | Travel [...] | | | | | [place], [place] | | | | | | [address] | | | | | | [phone] | | | | | | | | +--------+---------+ + + + documented as of this encounter Visit Diagnoses Not on filedocumented in this encounter"
--- OUTSIDE RECORDS SUMMARY | ~2019-12-02 | XMS | Encounter Summary ---
Demographics + + + | Address | [address] | | | [place] [address] | + + + | Home Phone [...] + | Katalina Padilla | ECON | [address] | | | | | [place], [place] | | | | | [address] | | + + + + + | Ellie Vang | ECON | Unknown | | + + + + + Care Team Providers + +------+ + | Care Steel Layer Name | Role | Phone | [...] on | Center at [facility] [address] | COMPUTER SYSTEMS SECURITY ANALYST [address] | | | | | [address] | [facility] 350 | | | | | Mailcode: Center | [place], [place] | | | | | [facility] and | [address] | | | | | [facility] 2 | [phone] | | | | | [place], [place] | | | | | | [address] | | | | | | [phone] | | | +--------+ + + + [...] | | | | | | [place], [place] | | | | | | [address] | | | | | | [phone] | | | | | | | | +--------+---------+ + + + documented as of this encounter Visit Diagnoses Not on filedocumented in this encounter"
--- OUTSIDE RECORDS SUMMARY | ~2019-12-02 | XMS | Encounter Summary ---
Demographics + + + | Address | [address] | | | [place] [address] | + + + | Home Phone [...] [place], [place] | | | | | [address] | | + + + + + | Ellie Vang | ECON | Unknown | | + + + + + Care Team Providers + +------+ + | Care Demo Event Specialist Name | Role | Phone | [...] | | | | | obesity | [place], [place] | | | | | | (HCC) | [address] | | | | | | Procedures | Phone: | | | | | | PHYSICAL | | | | | | | THERAPY | Fax: | | | | | | REFERRAL | [phone] | | +--------+--------+ + + + + Encounter Details +--------+ + + + + | Date | Type | Department | Care Team | Description | +--------+ + + + + | 06/22/ | Wellness Program Coordinator | Digestive Health | Ion Pandey, | Pre-op evaluation | | 2016 | | Center at [facility] [address] | [address] | (Primary Dx); Morbid | | | | [address] | [place], [place] | obesity (HCC) | | | | Mailcode: Center | [address] | | | | | for Health and | | | | | | Healing, [address] | | | | | | [place], [place] | | | | | | [address] | | | | | | [phone] | | | +--------+ + + + [...] Flann[address] | | | | | | [place], [place] | | | | | | [address] | | | | | | [phone] | | | | | | | | +--------+---------+ + + + documented as of this encounter Visit Diagnoses + + | Diagnosis | + + | Pre-op evaluation - Primary Preoperative examination, unspecified | + + | Morbid obesity (HCC) Morbid obesity | + + documented in this encounter"
--- OUTSIDE RECORDS SUMMARY | ~2019-12-02 | XMS | Encounter Summary ---
Demographics + + + | Address | [address] | | | [place] [address] | + + + | Home Phone [...] [place], [place] | | | | | [address] | | + + + + + | Ellie Vang | ECON | Unknown | | + + + + + Care Team Providers + +------+ + | Care Siphoner Name | Role | Phone | + [...] Flannery | | | | | | [place], [place] | | | | | | [address] | | | | | | [phone] | | | | | | | | +--------+---------+ + + + documented as of this encounter Visit Diagnoses Not on filedocumented in this encounter"
--- OUTSIDE RECORDS SUMMARY | ~2019-12-02 | XMS | Encounter Summary ---
Demographics + + + | Address | [address] | | | [place] [address] | + + + | Home Phone [...] + | Katalina Padilla | ECON | [address] | | | | | [place], [place] | | | | | [address] | | + + + + + | Ellie Vang | ECON | Unknown | | + + + + + Care Team Providers + +------+ + | Care Loom Changer Name | Role | Phone | [...] | | 2017 | | Preventive at [facility] | MD [address] | | | | | [address] | [place], [place] | | | | | Mailcode: 9A | [address] | | | | | [facility] | [phone] | | | | | and [facility], | | | | | | [address] | | | | | | [place], [place] | | | | | | [address] | | | | | | [phone] | | | +--------+ + + + [...] Flannery | | | | | | [place], [place] | | | | | | [address] | | | | | | [phone] | | | | | | | | +--------+---------+ + + + documented as of this encounter Visit Diagnoses Not on filedocumented in this encounter"
--- OUTSIDE RECORDS SUMMARY | ~2019-12-02 | XMS | Encounter Summary ---
Demographics + + + | Address | [address] | | | [place] [address] | + + + | Home Phone [...] [place], [place] | | | | | [address] | | + + + + + | Ellie Vang | ECON | Unknown | | + + + + + Care Team Providers + +------+ + | Care Casino Slot Supervisor Name | Role | Phone | [...] 2019 | | Preventive at [facility] | MD [address] | stop any | | | | [address] | [place], [place] | medications? ) | | | | Mailcode: [place] | [address] | | | | | [facility] | [phone] | | | | | and Healing, | | | | | | [address] | | | | | | [place], [place] | | | | | | [address] | | | | | | [phone] | | | +--------+ + + + [...] Flannery | | | | | | [place], [place] | | | | | | [address] | | | | | | [phone] | | | | | | | | +--------+---------+ + + + documented as of this encounter Visit Diagnoses Not on filedocumented in this encounter"
--- OUTSIDE RECORDS SUMMARY | ~2019-12-02 | XMS | Encounter Summary ---
Demographics + + + | Address | [address] | | | [place] [address] | + + + | Home Phone [...] [place], [place] | | | | | [address] | | + + + + + | Ellie Vang | ECON | Unknown | | + + + + + Care Team Providers + +------+ + | Care Hvac Engineer Name | Role | Phone | [...] + + | 03/01/ | Hospital | [facility] [address] | Ion Castanon, | | | 2018 - | Encounter | [address] | [address] | | | | | [place], [place] | [place], [place] | | | 03/03/ | | [address] | [address] | | | 2017 | | [phone] | [phone] | | | | | | | [...] Gavin ACNP - 03/03/2018 9:49 AM PDT [facility] RED SURGERY INPATIENT DISCHARGE SUMMARY Author: KAIN Agee Attending Physician: Ion Casatnon MD PCP: Fadi Goodrich DO Admission Date: [...] to a bariatric full liquid diets. [facility] dietitian was consulted and they discussed [...] at minimum. 5. Follow with PCP for Change Management Analyst within 1 - 2 weeks of discharge [...] mg by mouth two times daily. CALCIUM [id number] ORAL Take 2 tablets by mouth two [...] or Kefir, [place] Yogurt, and Chioban i Malawian Yogurt are common brands with beneficial probiotics. [...] available over the counter at most [facility] [employer] stores. Nausea/Vomiting/Difficulty Swallowing Nausea/Vomiting/Difficulty swallowing: Could be [...] hours per your instructions. Some medications, like Elizabeth, have Tylenol in it. Make sure you [...] hours by calling the surgery office at [phone]. - After hours, weekends and holidays, you may call the hospital levers lace machine operator at [phone] an d have the group leader semiconductor testing Red Surgery Team paged. OTHER DISCHARGE ORDERS [...] at minimum. 5. Follow with PCP for Change Management Analyst within 1 - 2 weeks of discharge [...] Phone Center 03/10/2018 1:30 PM [facility] 6th Floor [phone] FO OD AND NUT 03/10/2018 3:05 PM [facility] at [facility] 6th Floor [phone] Critical Access Hospital 04/01/2018 10:30 AM [facility] 6th Floor [phone] FO OD AND NUT 04/01/2018 11:00 AM [facility] 6th Floor [phone] Critical Access Hospital 05/27/2018 2:30 PM [facility]estive [facility] at [facility] 6th Floor [phone] FO OD AND NUT 05/27/2018 3:05 PM [facility] at [facility] 6th Floor [phone] Critical Access Hospital 05/27/2018 4:30 PM [facility] 15th Floor [phone] Comprehensiv 06/04/2018 10:35 AM [facility]ell Fr[facility] Cardiology Preventive at [facility] [phone] Cardiology Discharging Physician: KAIN Agee Attending Physician: Ion Castanon MD [employer] Surgery Pager# [phone] 9:50 AM 03/03/2018 documented in this enco [...] | | 0 | | | | [id number]-GEN | mouth two times | | | [...] date of discharge 03/03/18 PARTHA Calixto MS3 [facility] [employer] Demarcus Menon MD - [...] for care ride home (pt lives in [employer]) Demarcus Alas M.D. General Surgery Resident PGY-1 Pager: [phone] Ion Ferrari MD - 10:00 AM PDTI [...] | | | | | | | [address] | | | | | | [phone] | | | | | | | [...] POC | | PDT | over, adult ([facility]) | results section. | + +--------+ + + + | CAPILLARY BLOOD | Routin | 03/03/2018 | Morbid obesity | Results for this | | GLUCOSE (NO CHG), | e | 7:54 AM | with BMI of 70 and | procedure are in the | | POC | | PDT | over, adult ([facility]) | results section. | + +--------+ + + + | CAPILLARY BLOOD | Routin | 03/03/2018 | Morbid obesity | Results for this | | GLUCOSE (NO CHG), | e | 6:28 AM | with BMI of 70 and | procedure are in the | | POC | | PDT | over, adult ([facility]) | results section. | + +--------+ + + + | CAPILLARY BLOOD | Routin | 03/02/2018 | Morbid obesity | Results for this | | GLUCOSE (NO CHG), | e | 9:17 PM | with BMI of 70 and | procedure are in the | | POC | | PDT | over, adult ([facility]) | results section. | + +--------+ + + + | CAPILLARY BLOOD | Routin | 03/02/2018 | Morbid obesity | Results for this | | GLUCOSE (NO CHG), | e | 6:50 PM | with BMI of 70 and | procedure are in the | | POC | | PDT | over, adult ([facility]) | results section. | + +--------+ + + + | CAPILLARY BLOOD | Routin | 03/02/2018 | Morbid obesity | Results for this | | GLUCOSE (NO CHG), | e | 3:46 PM | with BMI of 70 and | procedure are in the | | POC | | PDT | over, adult ([facility]) | results section. | + +--------+ + + + | CAPILLARY BLOOD | Routin | 03/02/2018 | Morbid obesity | Results for this | | GLUCOSE (NO CHG), | e | 2:36 PM | with BMI of 70 and | procedure are in the | | POC | | PDT | over, adult ([facility]) | results section. | + +--------+ + + + | CAPILLARY BLOOD | Routin | 03/02/2018 | Morbid obesity | Results for this | | GLUCOSE (NO CHG), | e | 1:33 PM | with BMI of 70 and | procedure are in the | | POC | | PDT | over, adult ([facility]) | results section. | + +--------+ + + + | CAPILLARY BLOOD | Routin | 03/02/2018 | Morbid obesity | Results for this | | GLUCOSE (NO CHG), | e | 11:36 AM | with BMI of 70 and | procedure are in the | | POC | | PDT | over, adult ([facility]) | results section. | + +--------+ + + + | CAPILLARY BLOOD | Routin | 03/02/2018 | Morbid obesity | Results for this | | GLUCOSE (NO CHG), | e | 10:32 AM | with BMI of 70 and | procedure are in the | | POC | | PDT | over, adult ([facility]) | results section. | + +--------+ + + + | CAPILLARY BLOOD | Routin | 03/02/2018 | Morbid obesity | Results for this | | GLUCOSE (NO CHG), | e | 9:23 AM | with BMI of 70 and | procedure are in the | | POC | | PDT | over, adult ([facility]) | results section. | + +--------+ + + + | CAPILLARY BLOOD | Routin | 03/02/2018 | Morbid obesity | Results for this | | GLUCOSE (NO CHG), | e | 8:36 AM | with BMI of 70 and | procedure are in the | | POC | | PDT | over, adult ([facility]) | results section. | + +--------+ + + + | CAPILLARY BLOOD | Routin | 03/02/2018 | Morbid obesity | Results for this | | GLUCOSE (NO CHG), | e | 7:35 AM | with BMI of 70 and | procedure are in the | | POC | | PDT | over, adult ([facility]) | results section. | + +--------+ + + + | CAPILLARY BLOOD | Routin | 03/02/2018 | Morbid obesity | Results for this | | GLUCOSE (NO CHG), | e | 6:33 AM | with BMI of 70 and | procedure are in the | | POC | | PDT | over, adult ([facility]) | results section. | + +--------+ + + + | CAPILLARY BLOOD | Routin | 03/02/2018 | Morbid obesity | Results for this | | GLUCOSE (NO CHG), | e | 5:28 AM | with BMI of 70 and | procedure are in the | | POC | | PDT | over, adult ([facility]) | results section. | + +--------+ + + + | CAPILLARY BLOOD | Routin | 03/02/2018 | Morbid obesity | Results for this | | GLUCOSE (NO CHG), | e | 4:36 AM | with BMI of 70 and | procedure are in the | | POC | | PDT | over, adult ([facility]) | results section. | + +--------+ + + + | CAPILLARY BLOOD | Routin | 03/02/2018 | Morbid obesity | Results for this | | GLUCOSE (NO CHG), | e | 2:46 AM | with BMI of 70 and | procedure are in the | | POC | | PDT | over, adult ([facility]) | results section. | + +--------+ + + + | CAPILLARY BLOOD | Routin | 03/02/2018 | Morbid obesity | Results for this | | GLUCOSE (NO CHG), | e | 12:32 AM | with BMI of 70 and | procedure are in the | | POC | | PDT | over, adult ([facility]) | results section. | + +--------+ + + + | CAPILLARY BLOOD | Routin | 03/01/2018 | Morbid obesity | Results for this | | GLUCOSE (NO CHG), | e | 10:31 PM | with BMI of 70 and | procedure are in the | | POC | | PDT | over, adult ([facility]) | results section. | + +--------+ + + + | CAPILLARY BLOOD | Routin | 03/01/2018 | Morbid obesity | Results for this | | GLUCOSE (NO CHG), | e | 8:21 PM | with BMI of 70 and | procedure are in the | | POC | | PDT | over, adult ([facility]) | results section. | + +--------+ + [...] POC | | PDT | over, adult ([facility]) | results section. | + +--------+ + + + | CAPILLARY BLOOD | Routin | 03/01/2018 | Morbid obesity | Results for this | | GLUCOSE (NO CHG), | e | 3:31 PM | with BMI of 70 and | procedure are in the | | POC | | PDT | over, adult ([facility]) | results section. | + +--------+ + + + | CAPILLARY BLOOD | Routin | 03/01/2018 | Morbid obesity | Results for this | | GLUCOSE (NO CHG), | e | 3:29 PM | with BMI of 70 and | procedure are in the | | POC | | PDT | over, adult ([facility]) | results section. | + +--------+ + + + | CAPILLARY BLOOD | Routin | 03/01/2018 | Morbid obesity | Results for this | | GLUCOSE (NO CHG), | e | 2:30 PM | with BMI of 70 and | procedure are in the | | POC | | PDT | over, adult ([facility]) | results section. | + +--------+ + + + | CAPILLARY BLOOD | Routin | 03/01/2018 | Morbid obesity | Results for this | | GLUCOSE (NO CHG), | e | 1:35 PM | with BMI of 70 and | procedure are in the | | POC | | PDT | over, adult ([facility]) | results section. | + +--------+ + + + | CAPILLARY BLOOD | Routin | 03/01/2018 | Morbid obesity | Results for this | | GLUCOSE (NO CHG), | e | 12:16 PM | with BMI of 70 and | procedure are in the | | POC | | PDT | over, adult ([facility]) | results section. | + +--------+ + [...] POC | | PDT | over, adult ([facility]) | results section. | + +--------+ + + + | LAPAROSCOPIC | Electi | 03/01/2018 | Morbid obesity | | | NISH-EN-Y GASTRIC | ve | 8:31 AM | ([facility]) | | | BYPASS | Surgic | [...] AMES | [address] | [place], [place] | | | [place] [facility] | [facility] | [address] | | | TESTS | | | [...] MARQU[facility] | [address] | [place], [place] | | | [facility] CARE | [address] | [address] | | | TESTS | | | [...] - [facility] | [address] | [place], [place] | | | [facility]ARE | [facility] | [address] | | | TESTS | | | [...] (H) | 70 - 99 mg/dL | [facility] - | | | GLUCOSE, | [...] AMES | [address] | [place], [place] | | | [facility] [facility]ARE | [facility] | [address] | | | TESTS | | | [...] AMES | [address] | [place], [place] | | | [place] OF JAKY | [address] | [address] | | | TESTS | | | [...] KWAKU | [address] | [place], [place] | | | [place] OF JAK[place] | [facility] | [address] | | | TESTS | | | [...] (H) | 70 - 99 mg/dL | [facility] - | | | GLUCOSE, | [...] AMES | [address] | [place], [place] | | | [place] [facility]ARE | [address] | [address] | | | TESTS | | | [...] KWAKU | [address] | [place], [place] | | | [place] OF JAKY | [address] | [address] | | | TESTS | | | [...] KWAKU | [address] | [place], [place] | | | [place] OF JAK[place] | [facility] | [address] | | | TESTS | | | [...] (H) | 70 - 99 mg/dL | [facility] - | | | GLUCOSE, | [...] AMES | [address] | [place], [place] | | | [place]ARE | [address] | [address] | | | TESTS | | | [...] KWAKU | [address] | [place], [place] | | | [facility] CARE | [address] | [address] | | | TESTS | | | [...] KWAKU | [address] | [place], [place] | | | [place] OF JAKY | [facility] | [address] | | | TESTS | | | [...] YAK[place] | [address] | [place], [place] | | | [place] [facility] CARE | [address] | [address] | | | TESTS | | | [...] + + | Performing | Address | City/State[facility] | Phone Number | | Organization | | | | + + + + + | [facility] | [address] | [place], [place] | | | [facility]ARE | [facility] | [address] | | | TESTS | | | [...] KWAKU | [address] | [place], [place] | | | [place] OF JAK[place] | [facility] | [address] | | | TESTS | | | | + + + + + CAPILLARY BLOOD GLUCOSE (NO CHG), POC (03/02/2018 4:36 AM PDT) + +-------+ + + + | Component | Value | Ref Range | Performed | Pathologist | | | | | At | Signature | + +-------+ + + + | BLOOD | 97 | 70 - 99 mg/dL | [facility] - | | | GLUCOSE, | [...] MARQUAM | [address] | [place], [place] | | | [facility] OF [facility] | [address] | [address] | | | TESTS | | | [...] AMES | [address] | [place], [place] | | | [facility] CARE | [facility] | [address] | | | TESTS | | | [...] | [facility] | [address] | [place], [place] | | | [facility] CARE | [facility] | [address] | | | TESTS | | | [...] (H) | 70 - 99 mg/dL | [facility] - | | | GLUCOSE, | [...] MARQU[place] | [address] | [place], [place] | | | [place] [facility]ARE | [address] | [address] | | | TESTS | | | [...] AMES | [address] | [place], [place] | | | [place] OF [place] | [facility] | [address] | | | TESTS | | | [...] KWAKU | [address] | [place], [place] | | | [facility] OF JAKY | [facility] | [address] | | | TESTS | | | [...] (H) | 70 - 99 mg/dL | [facility] - | | | GLUCOSE, | [...] [place] | [address] | [place], [place] | | | [place] [facility]ARE | [address] | [address] | | | TESTS | | | [...] KWAKU | [address] | [place], [place] | | | [facility] CARE | [facility] | [address] | | | TESTS | | | [...] KWAKU | [address] | [place], [place] | | | [facility] OF JAKY | [facility] | [address] | | | TESTS | | | [...] (H) | 70 - 99 mg/dL | [facility] - | | | GLUCOSE, | [...] KWAKU | [address] | [place], [place] | | | [place] [facility] CARE | [address] | [address] | | | TESTS | | | [...] + + | Performing | Address | City/State/[facility] | Phone Number | | Organization | | | | + + + + + | [facility] | [address] | [place], [place] | | | [facility] OF J[place] | [facility] | [address] | | | TESTS | | | | + + + + + EGD (ESOPHAGOGASTRODUODENOSCOPY) (03/01/2018 11:21 AM PDT) + + + | Narrative | Performed At | + + + | Ion Castanon MD 03/01/2018 12:25 PM Date of Procedure: | | | 03/01/18 Primary Surgeon: Ion Castanon MD Co Surgeon or | | | judicial administrative assistant: Eldon Gonzalez MD, Chief Resident Alexx [...] The jejunum was divided with 60 mm Marcola stapler with white | | | load [...] created in each limb and a 60mm Marcola stapler | | | with white load was fired to create a [id number] | | | jejunojejunostomy. The anastamosis was confirmed to be widely | | | patent and hemostatic. The common enterotomy was closed by placing | | | 2 stay sutures along the enterotomy for retraction and firing an | | | Marcola 60mm stapler with white load across the [...] | | | was entered. The 60mm Marcola stapler with blue load was placed | [...] blue load of the 60mm stapler. The Marcola was then fired | | | longitudinally towards the angle of His to create the gastric pouch, | | | leaving the gastrotomy from foreign body removal, on the pouch. | | | Dissection was performed retrogastric to connect posterior and | | | anterior dissection planes and ensure adequate fundus exclusion. | | | Additional fires of the Marcola stapler were performed with blue | | [...] with | | | 5 mm clip building inspector. A 25mm Orvil was passed transorally by [...] was closed with 60mm | | | Marcola stapler with a white load. Medially and [...] was present | | | as my judicial administrative assistant for the entire procedure, given the technically | | | challenging nature of this procedure. She assisted in all critical | | | steps of the procedure. Dr. Gonzalez was present for endoscopy at the | | | end of the procedure. Ion Castanon MD, FACS, [facility] | | | Bariatric Surgery | | [...] MD Co Surgeon or | | | judicial administrative assistant: Eldon Gonzalez MD, Chief Resident Alexx [...] The jejunum was divided with 60 mm Marcola stapler with white | | | load [...] created in each limb and a 60mm Marcola stapler | | | with white load was fired to create a [id number]-ip-rlht | | | jejunojejunostomy. The anastamosis was confirmed to be widely | | | patent and hemostatic. The common enterotomy was closed by placing | | | 2 stay sutures along the enterotomy for retraction and firing an | | | Marcola 60mm stapler with white load across the [...] | | | was entered. The 60mm Marcola stapler with blue load was placed | [...] blue load of the 60mm stapler. The Marcola was then fired | | | longitudinally towards the angle of His to create the gastric pouch, | | | leaving the gastrotomy from foreign body removal, on the pouch. | | | Dissection was performed retrogastric to connect posterior and | | | anterior dissection planes and ensure adequate fundus exclusion. | | | Additional fires of the Marcola stapler were performed with blue | | [...] with | | | 5 mm clip building inspector. A 25mm Orvil was passed transorally by [...] was closed with 60mm | | | Marcola stapler with a white load. Medially and [...] was present | | | as my judicial administrative assistant for the entire procedure, given the technically | | | challenging nature of this procedure. She assisted in all critical | | | steps of the procedure. Dr. Gonzalez was present for endoscopy at the | | | end of the procedure. Ion Castanon MD, FACS, [facility] | | | Bariatric Surgery | | [...] [place] | [address] | [place], [place] | | | [place] OF [place] | [address] | [address] | | | TESTS | | | [...] type 2 without retinopathy ([facility]) Type II or unspecified type | | [...]
--- OUTSIDE RECORDS SUMMARY | ~2019-12-02 | XMS | Encounter Summary ---
Demographics + + + | Address | [address] | | | [place] [address] | + + + | Home Phone [...] + + + + + | Katalina Pdailla | ECON | [address] | | | | | [place], [place] | | | | | [address] | | + + + + + | Ellie Vang | ECON | Unknown | | + + + + + Care Team Providers + +------+ + | Care Feedlot Manager Name | Role | Phone | [...] | | Center at [facility] [address] | [facility] [place] | | | | | [address] | [address] | | | | | Mailcode: Center | [phone] | | | | | for Health and | | | | | | [facility] | | | | | | [facility] [place] | | | | | | [address] | | | | | | [phone] | | | +--------+ + + + [...] [address] | | | | | | [place], [place] | | | | | | [address] | | | | | | [phone] | | | | | | | | +--------+---------+ + + + documented as of this encounter Visit Diagnoses Not on filedocumented in this encounter"
--- OUTSIDE RECORDS SUMMARY | ~2019-12-02 | XMS | Encounter Summary ---
Demographics + + + | Address | [address] | | | [place] [address] | + + + | Home Phone [...] [place], [place] | | | | | [address] | | + + + + + | Ellie Vang | ECON | Unknown | | + + + + + Care Team Providers + +------+ + | Care Finger Lift Operator Name | Role | Phone | [...] [id number] | | | | | | [facility] | | | | | | [place], [place] | | | | | | [address] | | | | | | [phone] | | | +--------+ + + + [...] [address] | | | | | | [place], [place] | | | | | | [address] | | | | | | [phone] | | | | | | | | +--------+---------+ + + + documented as of this encounter Visit Diagnoses Not on filedocumented in this encounter"
--- OUTSIDE RECORDS SUMMARY | ~2019-12-02 | XMS | Encounter Summary ---
Demographics + + + | Address | [address] | | | [place] [address] | + + + | Home Phone [...] + | Katalina Padilla | ECON | [address] | | | | | [place], [place] | | | | | [address] | | + + + + + | Ellie Vang | ECON | Unknown | | + + + + + Care Team Providers + +------+ + | Care Documentation Clerk Name | Role | Phone | + +------+ + | Kenyatta Cardenas MD | PCP | | + +------+ + Encounter Details +--------+ + + + + | Date | Type | Department | Care Team | Description | +--------+ + + + + | 08/19/ | Procedure | [facility] [address] | | | | 2020 | Pass | [facility] | | | | | | [facility] | | | | | | [facility] Admitting | | | | | | Desk Located on the | | | | | | 9th floor | | | | | | [place], [place] | | | | | | [address] | | | +--------+ + + + [...] [address] | | | | | | [facility] [place] | | | | | | [address] | | | | | | [phone] | | | | | | | | +--------+---------+ + + + documented as of this encounter Visit Diagnoses Not on filedocumented in this encounter"
--- OUTSIDE RECORDS SUMMARY | ~2019-12-02 | XMS | Encounter Summary ---
Demographics + + + | Address | [address] | | | [place] [address] | + + + | Home Phone [...] [place], [place] | | | | | [address] | | + + + + + | Ellie Vang | ECON | Unknown | | + + + + + Care Team Providers + +------+ + | Care Signwriter Name | Role | Phone | + [...] | | | | | essential | [address] | [address] | | | | | hypertension | [address] | [address] | | | | | Type II or | [address] | [place], [place] | | | | | unspecified | [place], [place] | [address] | | | | | type | [address] | Phone: | | | | | diabetes | Phone: | [phone] | | | | | mellitus | [phone] | Fax: | | | | | without | Fax: | [phone] | | | | | mention of | [phone] | | | | | | complication [...] | 2013 | Visit | Preventive at [facility] | MD [address] | mellitus (HCC) | | | | [address] | [place], [place] | (Primary Dx) | | | | Mailcode: CH9A | [id number] | | | | | [facility] | [phone] | | | | | and [place], | | | | | | [address] | | | | | | [place], [place] | | | | | | [address] | | | | | | [phone] | | | +--------+---------+ + + + [...] Wi ll discuss with Dr. Brian and wheat grower her best strategies for meeting weight loss [...] | 03/15/ | Office | Cardiology | Tiny[facility]ica[place]ell, | | | 2019 | Visit | | [address] | | | | | | [place], [place] | | | | | | [address] | | | | | | [phone] | | | | | | | [...] + + + + + | [facility] | [address] | [place] [address] | | | SERVICES, SPECIAL | CLARENCE [...]
--- OUTSIDE RECORDS SUMMARY | ~2019-12-02 | XMS | Encounter Summary ---
Demographics + + + | Address | [address] | | | [place] [address] | + + + | Home Phone [...] [place], [place] | | | | | [address] | | + + + + + | Ellie Vang | ECON | Unknown | | + + + + + Care Team Providers + +------+ + | Care Vocational School Teacher Name | Role | Phone | [...] Visit | Medicine Clinic at | J, ABRASIVE GRINDER | (Primary Dx); | | | | [facility] | | Dysphagia, | | | | [address] | | unspecified type; | | | | Mail Code: OC8PM | | Hypertension, | | | | [facility] | | unspecified type; | | | | and Healing, | | Hyperlipidemia, | | | | [address] | | unspecified | | | | [place], [place] | | hyperlipidemia type; | | | | [address] | | Diastolic | | | | [phone] | | congestive heart | | | [...] Yes; Right; | 01/01/17928 by | 08/18/19 153 by | | | lydia; Other (Comment) (open | Ashley Herndon RN | Orquidea Parks RN | | | sore. area reddened. Pt reports | | | [...] | 03/01/18; 0925; Dannie; Left; | 03/01/18 09 by | 08/18/19 1534 by | | [...] | | Endotracheal Tube; 7; Oral; | BIRTH ATTENDANT | BIRTH ATTENDANT | | | Cuffed; 06/23/18; 1542 | [...] encounter Patient Instructions Patient Instructions Tiara Mckeon, ABRASIVE GRINDER - 06/16/2018 3:15 PM [facility] PREOPERATIVE INSTRUCTIONS Please consider having an influenza [...] your procedure. Surgery check-in location: Admitting - [facility], [facility] Surgery Check in Time: The Preoperative Medicine [...] it is after office hours, call the [facility] scoop machine operator at [phone] and ask them to page him or [...] weight loss and diuretic tx, follows with scientific writer Hypothyroidism stabilized on hormone replacement Type 2 [...] renal failure no electrolyte abnormalities no dialysis Urology/Senior Program Manager: Urologic Conditions: nephrolithiasis Endo: Diabetes: type 2 [...] sublingual Place under tongue once daily. CALCIUM [id number] ORAL Take 2 tablets by mouth two [...] Anemia Anxiety Bipolar disorder ([facility]) Chronic wound infection of abdomen from 2010 Cough Depression Diverticulitis of colon Dizziness Glaucoma Heart burn Hemorrhoids Hernia of abdominal wall Incisional hernia, incarcerated 2012 Insomnia Irregular periods Kidney stone Leaking of urine Leg sore Lymphedema Morbid obesity with body mass index of 70 and over in adult ([facility]) Myalgia and myositis Nausea Neck pain Numbness Osteoarthritis of knee Palpitations Pneumonia Shortness of breath Staphylococcal infection Stroke ([facility]) TIA (transient ischemic attack) due to Bromocriptine [...] Dr. Andie Brian Incisional hernia repair 03/01/2015 [facility]/ Dr. Cantu. Primary fascial closure and scar excision Lap gastric byp, and nilesh-en-y gastroenterostomy w/ nilesh limb 150 cm or less 8 [facility] Family history reviewed / updated Family [...] weight loss and diuretic tx, follows with scientific writer. Appears comp ensated today. Hypothyroidism stabilized on hormone replacement. Take on DOS as usual Type 2 diabetes, well controlled with A1c 6.1 Thank you for the opportunity to contribute to this patient's care. HILDA Lagos [facility] 4TH FLOOR [address] [place] [place] [address] I advised the patient regarding NPO requirements, hydration before surgery, showering, ge neral body hygiene. All pre-procedure instructions given to the patient (after-visit summar y). All of patient's questions were addressed. The patient verbalized understanding of the instructions given. Kat Damon in this encounter Plan of Treatment +--------+---------+ + + + | Date | Type | Specialty | Care Team | Description | +--------+---------+ + + + | 03/15/ | Office | Cardiology | Randell Franks, | | | 2019 | Visit | | [address] | | | | | | [place], [place] | | | | | | [address] | | | | | | [phone] | | | | | | | [...]
--- OUTSIDE RECORDS SUMMARY | ~2019-12-02 | XMS | Encounter Summary ---
Demographics + + + | Address | [address] | | | [place] [address] | + + + | Home Phone | | + + + | Preferred Language | Unknown | + + + | Marital Status | | + + + | Jainism Affiliation | Unknown | + + + | Race | Unknown | + + + | Ethnic Group | Unknown | + + + Author + + + | Author | [facility] | | | and Jeffana | + + + | Organization | [facility] | | | and [...] Team Providers + +------+ + | Care Radiology Nurse Name | Role | Phone | [...] [address] | | | | [address] | [place] | | | | | [place], [place] | [place] [address] | | | | | [address] | [phone] | | | | | [phone] | | | +--------+ + + + [...] | 03/05/ | Office | Cardiology | DarlinyanaSulema | | | 2019 | Visit | | [address] | | | | | | [address] | | | | | | [place] [address] | | | | | | [phone] | | | | | | | [...] 0.61 m/s | | | MV Dec Thomas: 2.43 m/s2 MV DecT: 247.51 ms MV E Jeffrey: 0.60 | | | m/s MV E/A Ratio: 0.98 MV PHT: 71.78 ms MVA By PHT: 3.06 | | | cm2 Septal e': 0.06 m/s Septal E/e': 9.54 Lateral e': 0.10 | | | m/s Lateral E/e': 5.84 RAP: 5 mmHg RV s': 0.11 m/s | | | Worm Packer: JESSICA Authenticated by: Darryl [facility] Report Date/Time: | | | 02-22-2019 20:8:36 [...] cmLVIDd: 4.70 cmLVPWd: 0.79 cmLVOT Area: 3.58 [id number] Diam: 2.13 cm%FS: 39.25 | | %EF(Teich): [...] | Index (A-L): 14.72 ml/m2LAAs A2C: 10.03 [id number] A-L A2C: 22.69 mlLALs A2C: 3.76 | | cmLAAs A4C: 13.41 [id number] A-L A4C: 36.80 mlLALs A4C: 4.14 cmRAAs: 11.18 | | [id number] A-L: 22.84 mlRAESV MOD: 22.10 mlRALs: 4.64 cmTAPSE: 2.04 cmAV maxPG: | | 6.55 mmHgAV meanP.52 mmHgAV Vmax: 1.27 m/Genesis Vmean: 0.88 m/Genesis VTI: 26.50 | | cmAVA Vmax: 2.49 cm2AVA (VTI): 2.39 wk9GVQA Vmax: 0.00 cm2/m2AVAI (VTI): 0.00 | | cm2/m2LVOT maxP.17 mmHgLVOT meanP.82 mmHgLVSI Dopp: 30.83 ml/m2LVSV Dopp: | | 63.52 mlLVOT Vmax: 0.89 m/sLVOT Vmean: 0.65 m/sLVOT VTI: 17.71 cmMV A Jeffrey: | | 0.61 m/sMV Dec Thomas: 2.43 m/s2MV DecT: 247.51 msMV E Jeffrey: 0.60 m/sMV E/A Ratio: | | 0.98MV PHT: 71.78 msMVA By PHT: 3.06 cp2Snilqo e': 0.06 m/sSeptal E/e': | | 9.54Lateral e': 0.10 m/sLateral E/e': 5.84RAP: 5 mmHgRV s': 0.11 m/s | | Worm Packer: DHAuthenticated by: Darryl [facility] Date/Time: 02-22-2019 20:8:36 | | IMPRESSION: 1. [...] A Jeffrey: 0.61 m/s | |MV Dec Thomas: 2.43 m/s2 | |MV DecT: 247.51 ms | |MV E Jeffrey: 0.60 m/s | |MV E/A Ratio: 0.98 | |MV PHT: 71.78 ms | |MVA By PHT: 3.06 cm2 | |Septal e': 0.06 m/s | |Septal E/e': 9.54 | |Lateral e': 0.10 m/s | |Lateral E/e': 5.84 | |RAP: 5 mmHg | |RV s': 0.11 m/s | | | |Worm Packer: | |Authenticated by: Darryl Merirll | |Report Date/Time: 02-22-2019 20:8:36 | | [...]
--- OUTSIDE RECORDS SUMMARY | ~2019-12-02 | XMS | Clinical Summary ---
Demographics + + + | Address | [address] | | | [place] [address] | + + + | Home Phone [...] + + | Author | [facility] | + + + | Organization | [facility] | + + + [...] [place], [place] | | | | | [address] | | + + + + + | Ellie Vang | ECON | Unknown | | + + + + + Care Team Providers + +------+ + | Care Medicaid Biller Name | Role | Phone | + +------+ + | Kenyatta Cardenas MD | PCP | | + +------+ + Source Comments [facility]KECHI is fully live on both [facility] and [facility] InPatient.[facility] Allergies + + + + + [...] 0 | | | Activ | | [id number]-GEN | mouth two times | | | [...] | + + + +---+------+---+-------+ | thyroid (PORTAINER OPERATOR | Take 30 mg by mouth | [...] TABLET BY | 90 | 1 | 02/0 | | Activ | | mg oral tablet | MOUTH ONCE DAILY IN | tablet | | 5/20 | | e | | | THE MORNING BEFORE | | | 20 | | | | | BREAKFAST | | | | | | + [...] max: 495 lbs | | S/P RYGB 2017 | | Post op maxi 270 lbs [...] + + | Hernia | 11/06/19 | | | | 13 | 0 | + + + + Encounters +--------+ + + + + | Date | Type | Specialty | Care Team | Description | +--------+ + + + + | 09/27/ | Abstract | Surgery | Chilo, | Medical Records | | 2019 | | | MD Jorje | Review | +--------+ + + + + | 09/26/ | Abstract | Surgery | Chilo, | Medical Records | | 2019 | | | MD Jorje | Review | +--------+ + + + + | 09/25/ | Telephone | Cardiology | Randell Franks, | Lab Results | | 2019 | | | | | +--------+ + + + + | 09/15/ | Office | Cardiology | Randell Franks, | Hypothyroidism, | | 2019 | Visit | | | unspecified type | | | | | | (Primary Dx); Severe | | | | | | Morbid obesity | | | | | | (HCC), BMI 88 | +--------+ + + + + | 09/15/ | Travel | | | | | 2019 | | | | | +--------+ + + + + | 09/08/ | Office | Surgery | Chilo | Postop check | | 2019 | Visit | | MD Jorje | (Primary Dx) | +--------+ + + + + | 09/08/ | Travel | | | | | 2020 | | | | | +--------+ + + + + | 09/06/ | Abstract | Surgery | Chilo | Medical Records | | 2019 | | | MD Jorje | Review | +--------+ + + + + | 09/06/ | Refill | Cardiology | Randell Franks, [...] | Visit | | MD [address] | | | | | | [place], [place] | | | | | | [address] | | | | | | [phone] | | | | | | | [...] + + | Hemoglobin A1c | | 09/15/2019, 05/27/2018, | | | | 0 | 02/22/2018, Additional history | | | | | exists | | + + + + + | Influenza (Flu) | | 04/27/2018, 06/04/2017, | | | vaccination (Season | 0 | 04/16/2016, Additional history | | | Ended) | | exists | | + + + + + | Creatinine | | 08/18/2019, 05/14/2019, | | | | 1 | 05/13/2019, Additional history | | | | | [...] - | | | | | | /[id number] | | [id number]: Qty: 1 on | | | | | | 525 | | 03/01/2018 by Ion Pandey | | | | | | | | MD Vinicius at [facility] | | | | | [...] - | | | | | | /[id number] | | [id number]: Qty: 1 on | | | | | | 173 | | 03/01/2018 by Ion Pandey | | | | | | | | MD Vinicius at [facility] RE[facility] | | | | | | | | LOC | | | | | | | + +------+------+ +--------+--------+--------+ Procedures + +--------+ + + + | Procedure Name | Priori | Date/Time | Associated Diagnosis | Comments | | | ty | | | | + +--------+ + + + | AR COLLECTION VENOUS | Routin | 09/15/2019 | [...] + + from Last 3 Months Results PTH, SERUM (09/15/2019 4:33 PM PST) [...] + + + + + | [facility] | [address] | [place] [address] | | | LYDIA RANGEL | CLARENCE [...] + + + + + | [facility] | [address] [facility] | [place] [address] | | | SERVICES, LYDIA | CLARENCE [...] | [facility] | | considered for monitoring rodent exterminator glycemic control in patients with: | LABORATORY [...] + + + + + | [facility] | [address] | [place] [address] | | | SERVICES, SPECIAL | PARK [...] | | | + +--------+ +--------+-------+---------+--------+ | TOOL SALVAGE WORKER MEDICAID | TOOL SALVAGE WORKER | xxxxxxxx | | | | Medica [...] mireya | | | 3 (Home) | [address] | + +--------+ +--------+ + + Advance [...]
--- OUTSIDE RECORDS SUMMARY | ~2019-12-02 | XMS | Encounter Summary ---
Demographics + + + | Address | [address] | | | [place] [address] | + + + | Home Phone [...] [place], [place] | | | | | [address] | | + + + + + | Ellie Vang | ECON | Unknown | | + + + + + Care Team Providers + +------+ + | Care Card Dealer Name | Role | Phone | + [...] | REPAIR | | | | [facility] | [address] | | | | | Hospital Admitting | [place], [place] | | | | | Desk Located on the | [address] | | | | | 9th floor | [phone] | | | | | [place], [place] | | | | | | [address] | | | +--------+---------+ + + + [...] the gallo. She was transitioned off her HOT PIPE GAUGER on POD1. She di d have difficulty [...] condition. She will follow up at the [facility] with Dr. Tiwari in 2- 3 weeks. [...] by mouth once daily at bedtime. CALCIUM CRB&QUI-Q1-WWV25-GENIS ORAL Take 2 tablets by mouth two [...] 1 tablet by mouth once daily. GOLD RICHARD MEDICATED TOP Apply to infected area two [...] daily. ASK your doctor about these medications LEAD WELDER THYROID 30 mg Tab tab Generic drug: [...] the prescribed narcotic-opioid (e.g. oxycodone, hydrocodone, Vicodin, Milton, Percocet, Dilaudid) as needed. However, Vicodin/Milton and Percocet contain acetam inophen in the [...] Narcotic-opioid pain medications (e.g. oxycodone, hydrocodone, Vicodin, Milton, Percocet, Di laudid) can be constipating, therefore you should take a stool softener on the same day as s tarting your narcotic pain medicine. Options include: Milk of Magnesia: 2 Tablespoons Twice daily Colace (=Docusate): 1 pill Twice daily Miralax: 1 Tablespoon (17 grams) daily (check bottle for mixing instructions) While these are some recommendations, any jhlj-lgc-rddskch stool softener should work, and generics are [...] and plan of care. JONES TIWARI MD [facility] [address] [place] [address] documented in this encounter Discharge Instructions Discharge [...] hours by calling the surgery office at [phone]. After hours, weekends and holidays, you may call the hospital keller machine operator at [phone] and have the contract lead [facility] for general surgery paged. Discharge Instr [...] the gallo. She was transitioned off her HOT PIPE GAUGER on POD1. She did have dif ficulty [...] She will follow up at the [facility] with Dr. Tiwari in weeks. She [...] the prescribed narcotic-opioid (e.g. oxycodone, hydrocodone, Vicodin, Milton, Percocet, Dilaudid) as needed. However, Vicodin/Milton and Percocet contain acetam inophen in the [...] Narcotic-opioid pain medications (e.g. oxycodone, hydrocodone, Vicodin, Milton, Percocet, Di laudid) can be constipating, therefore you should take a stool softener on the same day as s tarting your narcotic pain medicine. Options include: Milk of Magnesia: 2 Tablespoons Twice daily Colace (=Docusate): 1 pill Twice daily Miralax: 1 Tablespoon (17 grams) daily (check bottle for mixing instructions) While these are some recommendations, any ywit-cfs-chmsgto stool softener should work, and generics are fine to use. Increase your fluids, especially your intake of water Increase your activity. Walk frequently. ANTICOAGULATION: We recommend you make an appointment to be seen in your local anticoagulation clinic on Thu08/25/19 to recheck your INR and for ongoing management of your warfarin. FOLLOW-UP: Please call Dr. Tiwari's office ([phone]) to schedule a follow-up appointment for 2-3 [...] | | 0 | | | | CRB&NPE-E5-LRL95-GEN | mouth two times | | | [...] | 0 | | | | (GOLD RICHARD | area two [...] + + +---------+ + + | thyroid (LEAD WELDER | Take 30 mg by mouth | [...] assist PRN. Anticipate discharge michelle Chandler MD [facility], PGY-1 Green Weave Room Supervisor Pager: [phone] signed by Jones Tiwari MD at 08/22/2019 [...] dc in 2-3 days Gadiel Chandler MD [facility], PGY-1 Green Weave Room Supervisor Pager: [phone] Associated attestation - Jones Tiwari MD - 08/21/2019 9:57 AM PSTI performed a hist ory and physical examination of the patient and discussed her management with the resident. I reviewed the resident s note and agree with the documented findings and plan of care. JONES TIWARI MD [facility] [address] [place] [address] Valencia Zamora MD - 08/20/2019 8:42 AM [...] well. - ruiz out today - dc HOT PIPE GAUGER - ppx lovenox today - therapeutic lovenox [...] care -Multimodal pain control Joselyn Everett MD [facility] General Surgery PGY1 [id number] Gadiel Armstrong MD - 08/19/2019 12:34 PM [...] hernia repair with mesh Gadiel Chandler MD [facility], PGY-1 Green Weave Room Supervisor Pager: [phone] documented in this encounter Plan of Treatment +--------+---------+ + + + | Date | Type | Specialty | Care Team | Description | +--------+---------+ + + + | 03/15/ | Office | Cardiology | Aly Franks, | | | 2019 | Visit | | [address] | | | | | | [place], [place] | | | | | | [address] | | | | | | [phone] | | | | | | | [...] [facility] | [address] | [place] [address] | | | SERVICES, CORE | [address] [...] [facility] | [address] | [place] [address] | | | SERVICES, CORE | [address] | | | + + + + + INR (08/22/2019 10:09 AM PST) + +-------+ + + + | Component | Value | Ref Range | Performed | Pathologist | | | | | At | Signature | + +-------+ + + + | INR | 1.08 | 0.90 - 1.20 INR | [facility] | | | | | [...] + + + + + | [facility] | [address] | [place] [address] | | | SERVICES, CORE | CLARENCE [...] - [facility] | [address] | [place], [place] | | | [place] POINT OF CARE | [address] | [address] | | | TESTS | | | [...] [facility] | [address] | [place], [place] | | | [place] POINT OF CARE | [address] | [address] | | | TESTS | | | [...] [facility] | [address] | [place] [address] | | | SERVICES, | [address] [...] + + + + + | [facility] | [address] | [place] [address] | | | SERVICES, | [address] | | | | TRANSFUSION MEDICINE | | | | + + + + + BG-VALERIE BENZ ISPAYAL (08/18/2019 4:32 PM PST) + + + [...] mmol/L | [facility] - | | | VALERIE JOAQUIN | | | [place] | | | [...] [facility] | [address] | [place], [place] | | | JUSTINE DAWN OF JAKY | [facility] | [address] | | | TESTS | | | [...] | [facility] | | | GRAVITY | [place] performed by | | LABORATORY | | [...] [facility] | [address] | [place] [address] | | | SERVICES, CORE | CLARENCE [...] | + + + + + | [facility] | [address] | [place] [address] | | | SERVICES, | [address] [...] + + + + + | [facility] | [address] | [place] [address] | | | SERVICES CORE | [address] | | | [...] [facility] | [address] | [place] [address] | | | LYDIA RANGEL | CLARENCE [...] + + + + + | [facility] | [address] | [place] [address] | | | SERVICES, LYDIA | CLARENCE [...] [facility] | [address] | [place] [address] | | | SERVICES, CORE | PARK [...] + + + + + | [facility] | [address] | [place] [address] | | | SERVICES, LYDIA | [address] | | | + + + + + ED INFORMATION EXCHANGE (08/18/2019 1:47 PM PST) + + | Specimen | + + | | + + + + + | Narrative | Performed At | + + + | COLLECTIVE?NOTIFICATION?08/18/2019 13:47?DYLAN ROMERO?MRN: | COLLECTIVE | | [id number] Criteria Met 5 Visits In 12 Months Has | MEDICAL | | Guidelines PDMP Security and Safety No recent Security Events | [employer] | | currently on file ED Care Guidelines from [facility] | | | Last Updated: 12/06/18 9:53 AM Care Coordination: Receiving | | | mental health services with [facility].? Please contact [facility] for | | | mental health concerns.? Sarah[facility]: [phone]? | | | Kishan: [phone].? These are guidelines and the provider | | | should exercise clinical judgment when providing care. Care | | | History Medical/Surgical 05/24/19 12:00 AM [facility] | | | Hospital PATIENT HAS AN APT ON 06/16/[address] HYLTON. | | | 05/11/19 12:00 AM [facility] Patient is | | | currently established with [facility]. If patient is seen in | | | the ED during business hours. Please contact CHWs at [facility] | | | Clinic. Care Recommendation: [...] care. 08/23/18 12:00 AM | | | [facility] PATIENT HAS A PCP APT TO ESTABLISH | | | CARE ON 10/04/18 @ 10:00AM WITH DR HYLTON. Flags | | | [place] Dis[place]ity [place] - [place] flag ([place] | | | Disparity [place]) to help support Medicaid members with mental | | | illness. [facility] uses claims data with a 36-month | [...] | are updated weekly. / Attributed By: [facility] (WAA) / | | | Attributed On: 08/09/2019 Prescription Drug Report (12 Mo.) | | | Rx Details Fill Date Drug Description Qty. Prescriber CS MED | | | 2019-08-16 HYDROCODONE-ACETAMIN 5-325 MG 10 SAMANTHA LEPE, DMD 2 16.667 | | | 2019-08-12 ALPRAZOLAM 1 MG TABLET 90 WINSTON JEFFAS 4 0 2019-08-02 | | | SUDAFED 12HR 120 MG CAPLET 30 JONES LANEY JR. 0 2019-07-26 | | | FENTANYL 12 MCG/HR PATCH 10 BETZY BALDWIN PA-C 2 0 2019-07-12 | | | ALPRAZOLAM 1 MG TABLET 60 WINSTON JEFFAS 4 0 2019-07-10 SUDOGEST 12 | | | HOUR 120 MG CAPLET 30 JONES DVAISON JR. 0 2019-06-28 FENTANYL 12 | | | MCG/HR PATCH 10 BETZY BALDWIN PA-C 2 0 2019-06-27 SUDOGEST 12 | | | HOUR 120 MG CAPLET 30 JONES DAVISON JR. 0 2019-06-26 | | | HYDROCODONE-ACETAMIN 5-325 MG 10 JAYRO GAGE MD 2 2019-06-15 | | | SUDOGEST 12 HOUR 120 MG CAPLET 30 JONES DAVISON, JR. 0 | | | 2019-06-14 ALPRAZOLAM 1 MG TABLET 60 WINSTON JOSE 4 0 2019-06-03 | | | SUDOGEST 12 HOUR 120 MG CAPLET 30 JONES DAVISON, JR. 0 2019-05-27 | | | PHENTERMINE [...] MG TABLET | | | 60 WINSTON SNOWDENLIANG 4 0 2019-04-13 BELBUCA 600 MCG FILM [...] (12 | | | mo.) Facility Visits [facility] | | | [facility] 2 [facility] 7 Total 10 Note: | | | Visits indicate total known visits. Recent Emergency Department | | | Visit Summary Date Facility City State Type Diagnoses or Chief | | | Complaint Aug 18, 2019 [facility] [place] | | | [place] Emergency 10,800. amr Jun 25, 2019 [facility] | | | [place] Emergency long-term (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 | | | Anxiety disorder, unspecified Cellulitis of abdominal wall | | | Acute embolism and thrombosis of deep veins of r up extrem | | | Nicotine dependence, unspecified, uncomplicated Migraine, unsp, | | | not intractable, without status migrainosus Unspecified | | | abdominal pain Allergy status to oth drug/meds/biol subst status | | | Other mcc (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 Allergy status to | | | penicillin Jun 19, 2019 [facility] [place] Emergency | | | terminal press operator (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 Prsnl hx of [...] unspecified Jun 01, 2019 | | | [facility] [place] Emergency Headache Allergy | | | status to penicillin Anxiety disorder, unspecified | | | Obesity, unspecified Migraine, unsp, not intractable, without | | | status migrainosus Other long wall shear operator (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 | | | Allergy status to oth drug/meds/biol subst status long-term | | | (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 long-term (current) use of | | | aspirin May 23, 2019 [facility] [place] Emergency | | | Anxiety disorder, unspecified Acute embolism and thrombosis of | | | deep veins of r up extrem Allergy status to penicillin | | | Other long wall shear operator (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 Pain in right arm | | | terminal press operator (current) use of aspirin Allergy status to oth | | | drug/meds/biol subst status May 20, 2019 [facility] | | | [place] Emergency Generalized abdominal pain Allergy | | | status to oth drug/meds/biol subst status Unspecified abdominal | | | pain Anxiety disorder, unspecified Other chronic pain | | | Allergy status to penicillin long-term (current) use of | | | aspirin Prsnl hx of TIA (TIA), and cereb infrc w/o resid | | | deficits Other mcc (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 May 13, | | | 2019 [facility] [place] Emergency | | | 10,800. A303 18,400. Bariatric surgery status 18,400. | | | Ventral hernia without obstruction or gangrene 18,400. Nausea | | | with vomiting, unspecified 18,400. Unspecified abdominal pain | | | 18,400. Nonspecific mesenteric lymphadenitis May 10, 2019 [facility] | | | [facility] [place] Emergency Nausea with vomiting, | | | unspecified Solitary pulmonary nodule Anxiety disorder, | | | unspecified Ventral hernia without obstruction or gangrene | | | Unspecified abdominal pain Diarrhea, unspecified Allergy | | | status to oth drug/meds/biol subst status Prsnl hx of TIA (TIA), | | | and cereb infrc w/o resid deficits Other long wall shear operator (current) | | | drug therapy Allergy status to penicillin December 03, 2018 [facility] [place] [facility] RIGHT LEG PAIN DUE TO FALL | | | Strain of unsp musc/tend at lower leg level, right leg, init | | | Aug 22, 2018 [facility] [place] Emergency Other | | | long wall shear operator (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 Upper abdominal pain, | | | unspecified Bariatric surgery status Allergy status to oth | | | drug/meds/biol subst status Noninfective gastroenteritis and | | | colitis, unspecified Obesity, unspecified Anxiety | | | disorder, unspecified long-term (current) use of aspirin | | | Allergy status to penicillin Personal history of pulmonary | | | embolism Recent Inpatient Visit Summary No recorded | | | inpatient visits. Care Team Provider Specialty Phone Fax Service | | | Dates Eagle Nino CHW Community Health Worker | | | Jul 03, 2019 - Current JONES DAVISON D.M.D. Dentist: | | | Slabber May 23, 2019 - | | | Current Rob Tilley [employer] Sales Representative/Expansion Joint Builder ([id number]) | | | [phone] Mar 27, 2018 - Current Bernard Hylton MD Internal | | | Medicine: Pulmonary Disease Aug 23, 2018 - Current | | | [employer] [facility] This patient [facility] | | | [facility] Emergency Department For more information | | | visit: | | | [email or web address] | | | [email or web address] a PLEASE NOTE: 1. Any care recommendations [...] or completeness of information provided. ? 2020 [employer] | | | [employer]. - [email or web address] | | + + + + + [...] on fileED Care Guidelines | | from [facility] [place] Updated: 12/06/18 9:53 AM Care Coordination:Receiving | | mental health services with [facility].? Please contact [facility] for mental health | | concerns.? Sarah/Toni Centeno: [phone]? Kishan: [phone].?These are | | guidelines and the provider should exercise clinical judgment when providing care.Care | | HistoryMedical/Kmfuuszt99/29/19 12:00 AM [facility] PATIENT HAS AN APT | | ON 06/16/[address] HYLTON.05/11/19 12:00 AM [facility] Patient is | | currently established with [facility]. If patient is seen in the ED during | | business hours. Please contact CHWs at [facility].Care Recommendation:This | | patient has had 5 [...] when providing | | care.08/23/18 12:[address] [facility] PATIENT HAS A PCP APT TO ESTABLISH CARE | | ON 10/04/18 @ 10:00AM WITH DR HYLTON. [place] Disparity [place] - [place] has | | developed a flag ([place] Disparity Measure) to help support Medicaid members with | | mental illness. [facility] uses claims data with a 36-month rolling look | | back period to identify members who have had two or more diagnoses of mental illness | | (does not need to be primary) in any setting (e.g. ED, Inpatient, primary care). Flagged | | members are included in the ED Disparity Measure denominator population. Flags are | | updated weekly. / Attributed By: [facility] (WAA) / Attributed On: | | 08/09/2019 Prescription Drug Report (12 Mo.)Rx DetailsFill Date Drug Description Qty. | | Prescriber MED 2019-08-16 HYDROCODONE-ACETAMIN 5-325 MG 10 SAMANTHA LEPE DMD 2 16.667 | | 2019-08-12 ALPRAZOLAM 1 MG TABLET 90 WINSTON JEFFAS 4 0 2019-08-02 SUDAFED 12HR 120 MG | | CAPLET 30 JONES DAVISON JR. 0 2019-07-26 FENTANYL 12 MCG/HR PATCH 10 BETZY BALDWIN | | JAVIER 2 0 2019-07-12 ALPRAZOLAM 1 MG TABLET 60 WINSTON JEFFAS 4 0 2019-07-10 SUDOGEST 12 | | HOUR 120 MG CAPLET 30 JONES DAVISON JR. 0 2019-06-28 FENTANYL 12 MCG/HR PATCH 10 | | BETZY BALDWIN PA-C 2 0 2019-06-27 SUDOGEST 12 HOUR 120 MG CAPLET 30 JONES DAVISON | | JR. 0 2019-06-26 HYDROCODONE-ACETAMIN 5-325 MG 10 JAYRO GAGE MD 2 25 2019-06-15 | | SUDOGEST 12 HOUR 120 MG CAPLET 30 JONES DAVISON JR. 0 2019-06-14 ALPRAZOLAM 1 MG | | TABLET 60 WINSTON JEFFAS 4 0 2019-06-03 SUDOGEST 12 HOUR 120 MG CAPLET 30 JONES DAVISON | | JR. 0 2019-05-27 PHENTERMINE 37.5 MG TABLET 90 ALY FRANKS MD 4 0 2019-05-24 | | FENTANYL 12 MCG/HR PATCH 5 BETZY BALDWIN PA-C 2 0 2019-05-17 SUDOGEST 12 HOUR 120 MG | | CAPLET 30 MARCO APPIAH PA-C 0 2019-05-17 ALPRAZOLAM 1 MG TABLET 60 WINSTON JEFFAS 4 0 | | 2019-05-14 OXYCODONE HCL [...] 0 E.D. Visit Count (12 mo.)Facility Visits [facility] 1 [facility] | [facility] 2 [facility] 7 Total 10 Note: Visits indicate | | total known visits. Recent Emergency Department Visit SummaryDate Facility City State | | Type Diagnoses or Chief Complaint Aug 18, 2019 [facility] | | [place] Emergency 10,800. amr Jun 25, 2019 [facility] [place] Emergency | | long-term (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 Anxiety disorder, unspecified | | Cellulitis of abdominal wall Acute embolism and thrombosis of deep veins of r up | | extrem Nicotine dependence, unspecified, uncomplicated Migraine, unsp, not | | intractable, without status migrainosus Unspecified abdominal pain Allergy status | | to oth drug/meds/biol subst status Other long wall shear operator (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 Allergy | | status to penicillin Jun 19, 2019 [facility]. [place] Emergency terminal press operator | | (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 Prsnl [...] unspecified Jun 01, 2019 | | [facility] [place] Emergency Headache Allergy status to penicillin | | Anxiety disorder, unspecified Obesity, unspecified Migraine, unsp, not | | intractable, without status migrainosus Other long wall shear operator (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 | | Allergy status to oth drug/meds/biol subst status long-term (current) use of | | anticoagulants terminal press operator (current) use of aspirin May 23, 2019 [facility] | | [place] Emergency Anxiety disorder, unspecified Acute embolism and thrombosis of | | deep veins of r up extrem Allergy status to penicillin Other long wall shear operator (current) | | drug therapy Pain in right arm terminal press operator (current) use of aspirin Allergy | | status to oth drug/meds/biol subst status May 20, 2019 [facility] | | Emergency Generalized abdominal pain Allergy status to oth drug/meds/biol subst | | status Unspecified abdominal pain Anxiety disorder, unspecified Other chronic | | pain Allergy status to penicillin terminal press operator (current) use of aspirin Prsnl hx | | of TIA (TIA), and cereb infrc w/o resid deficits Other long wall shear operator (current) drug | | therapy May 13, 2019 [facility] [place] Emergency | | 10,800. A303 18,400. Bariatric surgery status 18,400. Ventral hernia without | | obstruction or gangrene 18,400. Nausea with vomiting, unspecified 18,400. | | Unspecified abdominal pain 18,400. Nonspecific mesenteric lymphadenitis May 10, 2019 | | [facility] [place] Emergency Nausea with vomiting, unspecified Solitary | | pulmonary nodule Anxiety disorder, unspecified Ventral hernia without obstruction | | or gangrene Unspecified abdominal pain Diarrhea, unspecified Allergy status to | | oth drug/meds/biol subst status Prsnl hx of TIA (TIA), and cereb infrc w/o resid | | deficits Other mcc (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 Allergy status to penicillin May | | 2018 [facility]. [place] Emergency RIGHT LEG PAIN DUE TO FALL | | Strain of unsp musc/tend at lower leg level, right leg, init Aug 22, [address] [facility] [facility] [place] Emergency Other long wall shear operator (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 Upper | | abdominal pain, unspecified Bariatric surgery status Allergy status to oth | | drug/meds/biol subst status Noninfective gastroenteritis and colitis, unspecified | | Obesity, unspecified Anxiety disorder, unspecified long-term (current) use of | | aspirin Allergy status to penicillin Personal history of pulmonary embolism | | Recent Inpatient Visit SummaryNo recorded inpatient visits. Care TeamProvider Specialty | | Phone Fax Service Dates Eagle Nino CHW Community Health Worker | | Jul 03, 2019 - Current JONES DAVISON D.M.D. Dentist: Slabber ([id number]) | | [phone] May 23, 2019 - Current Rob Tilley [employer] Sales Representative/Care | | Coordinator Mar 27, 2018 - Current Bernard Hylton MD Internal Medicine: | | Pulmonary Disease Aug 23, 2018 - Current [facility] patient has registered | | at the [facility] [place] [facility] For more information | | visit: [email or web address] | | PLEASE NOTE: 1. Any care [...] or completeness of information | | provided.? 2020 [employer]. - www.[email or web address] | | Allergy status to oth drug/meds/biol subst status | | Other mcc (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 | | Allergy status to penicillin | | | |Jun 19, [address] [facility] [place] Emergency | | long-term (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 | | Prsnl [...] unspecified | | | |Jun 01, 2019 [facility] [place] Emergency | | Headache | | Allergy status to penicillin | | Anxiety disorder, unspecified | | Obesity, unspecified | | Migraine, unsp, not intractable, without status migrainosus | | Other long wall shear operator (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 | | Allergy status to oth drug/meds/biol subst status | | long-term (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 | | terminal press operator (current) use of aspirin | | | |May 23, 2019 [facility] [place] Emergency | | Anxiety disorder, unspecified | | Acute embolism and thrombosis of deep veins of r up extrem | | Allergy status to penicillin | | Other long wall shear operator (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 | | Pain in right arm | | terminal press operator (current) use of aspirin | | Allergy status to oth drug/meds/biol subst status | | | |May 20, 2019 [facility] [place] Emergency | | Generalized abdominal pain | | Allergy status to oth drug/meds/biol subst status | | Unspecified abdominal pain | | Anxiety disorder, unspecified | | Other chronic pain | | Allergy status to penicillin | | terminal press operator (current) use of aspirin | | Prsnl hx of TIA (TIA), and cereb infrc w/o resid deficits | | Other mcc (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 | | | |May 13, 2019 [facility] [place] Emergency | | 10,800. A303 | | 18,400. Bariatric surgery status | | 18,400. Ventral hernia without obstruction or gangrene | | 18,400. Nausea with vomiting, unspecified | | 18,400. Unspecified abdominal pain | | 18,400. Nonspecific mesenteric lymphadenitis | | | |May 10, 2019 [facility] [place] Emergency | | Nausea with vomiting, unspecified | | Solitary pulmonary nodule | | Anxiety disorder, unspecified | | Ventral hernia without obstruction or gangrene | | Unspecified abdominal pain | | Diarrhea, unspecified | | Allergy status to oth drug/meds/biol subst status | | Prsnl hx of TIA (TIA), and cereb infrc w/o resid deficits | | Other mcc (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 | | Allergy status to penicillin | | | |December 03, 2018 [facility]. [place] Emergency | | RIGHT LEG PAIN DUE TO FALL | | Strain of unsp musc/tend at lower leg level, right leg, init | | | |Aug 22, [address] [facility]. [place] Emergency | | Other long wall shear operator (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 | | Upper abdominal pain, unspecified | | Bariatric surgery status | | Allergy status to oth drug/meds/biol subst status | | Noninfective gastroenteritis and colitis, unspecified | | Obesity, unspecified | | Anxiety disorder, unspecified | | terminal press operator (current) use of aspirin | | Allergy status to penicillin | | Personal history of pulmonary embolism | | | | | | | |Recent Inpatient Visit Summary | |No recorded inpatient visits. | | | |Care Team | |Provider Specialty Phone Fax Service Dates | |Eagle Nino CHW Community Health Worker Jul 03, 2019 - Current | |JONES DAVISON D.M.D. Dentist: Slabber May 23, 2 019 - Current | |Rob Tilley Plastic Products Sales Representative/Expansion Joint Builder Mar 27, 2018 - Current | |Bernard Hylton MD Internal Medicine: Pulmonary Disease Aug 23, 2018 - Current | | | |Prim[employer] Portal | |This patient has registered at the [facility] | |For more information visit: [email or web address] | |PLEASE NOTE: | | 1. Any [...] information provided. | | | |? 2020 [employer] - [email or web address] | + + + + + + + | Performing | Address | City/State/Zipcode | Phone Number | | Organization | | | | + + + + + | [employer] [facility] | [address] | [place], [place] | [phone] | | TECHN[employer] | [address] | [address] | | + + + + + [...] +------+------+ +-------+ + +---+---+ | Given | 01/28/20 | 1,000 mg | | | | [...] | NEEDED, Starting Thu08/18/19 at | | AM PST | | | | | 1821, Until Thu08/23/19 at 1901, | | | [...] | | | | First dose on [facility] 08/18/19 at | | PM PST | [...] | | | EVENING, First dose on Jasmyne | | PM [...] | | | | | 08/23/19 at 190, moderate pain | | | | | [...] Until Tue | | | 08/23/19 at 190, skin | | | irritation/breakdown | | [...] | | +-------+ +---------+---+---+ | Given | 01/25/20 | 0.25 mg | | | | [...] | | | | First dose on [facility] 08/18/19 at | | AM PST [...] | | | | First dose on 08/22/19 at | | PM PST | | | | | 2100, Until Discontinued | | | | | | + +-------+ +-------+---+---+ +---+---+ | | | +---+---+ documented in this encounter
--- OUTSIDE RECORDS SUMMARY | ~2019-12-02 | XMS | Encounter Summary ---
Demographics + + + | Address | [address] | | | [place] [address] | + + + | Home Phone [...] + | Katalina Padilla | ECON | [address] | | | | | [place], [place] | | | | | [address] | | + + + + + | Ellie Vang | ECON | Unknown | | + + + + + Care Team Providers + +------+ + | Care Chair Upholsterer Name | Role | Phone | + [...] 2014 | | [address] | [address] | REPAIR | | | | [facility] | [address] | | | | | Hospital Admitting | [place], [place] | | | | | Des Located on the | [address] | | | | | 9th floor | [phone] | | | | | [place], [place] | | | | | | [address] | | | +--------+---------+ + + + [...] port site who was transferre d to [facility] for concern of an incarcerated hernia. [...] mouth once daily. , Historical Med CALCIUM CRB&[id number]-[id number]-[id number]-GENIS ORAL Take 1 tablet by mouth two [...] 10:40 AM Randell Franks Cardiology Preventive at [facility] [phone] Cardiology 04/09/2015 1:00 PM Egs Ppv Tra Trauma Emergency General Surgery at [facility] [phone] TRAUMA CENTE Outstanding labs/studies: None Discharging Physician: GABO LANGSTON MD Attending Physician: Dr. Cantu PCP: Fadi Goodrich DO Signed: GABO LANGSTON MD Pager #[phone] Surgical Wire Photo Operator [facility] Associated attestation - Tye Carrillo DO - 03/12/2015 9:12 AM PDTAttending: I discussed this patient with the resident and agree with the assessment and plan as outlin ed in this note and participated in the planning of care. Tye Carrillo DO, SIDRA, FACS Division of Trauma, Critical Care & Acute Care Surgery [facility] [phone] documented in this encounter Medications at Time of Discharge + + + +---------+--------+ + | Medication | Sig | Dispensed | Refills | Start | End Date | | | | | | Date | | + + + +---------+--------+ + | CALCIUM | Take 2 tablets by | | 0 | | | | CRB&IPM-Q2-CZY55-GEN | mouth two times | | | [...] might be differ ent from the original. [facility] [place] DEPARTMENT OF SURGERY EMERGENCY GENERAL SURGERY Division [...] obesity with known ventral hernias transferred to [facility] for surgical managem ent of ventral hernia, now s/p repair. Post surgical pain: -patient ready for d/c, discussed f/u. Patient lives far away and has other appointments at [facility]. Will attempt to coordinate appointments. Discharge Plan: D/c today GABO LANGSTON MD Pager #[phone] Surgical Wire Photo Operator [facility] Salomón William Md - 03/02/2015 1:12 PM PDT [facility] DEPARTMENT OF SURGERY EMERGENCY GENERAL SURGERY Division of Trauma and Critical Care Attending Physician: Shahid Cantu MD Progress Note Note Date: 03/02/2015 Admission Date: 2015 DYLAN ROMERO, Hospital Day #2 40 F PMH morbid obesity (BMI 71 today), DM2, depression, GERD, h/o stroke at age 18, and kn own ventral hernias transferred to [facility] for surgical treatment of suspected incarcerated [...] obesity with known ventral hernias transferred to [facility] for surgical managem ent of ventral [...] will be robel ing her home to [place], [place]. CALVIN ROMERO MD PGY-1 Anesthesiology Pager: [phone] [facility] [address] [facility] [address] Karthik Oneill MD - 03/02/2015 8:26 AM [id number] Calvin William Md - 03/01/2015 5:34 PM PDT Brief Post Operative Note: 40 F PMH morbid obesity (BMI 71 today), DM2, depression, GERD, h/o stroke at age 18, and kn own ventral hernias transferred to [facility] for surgical treatment of incarcerated ventral [...] control CALVIN ROMERO MD PGY-1 Anesthesiology Pager: [phone] signed by Calvin Romero Md at 03/01/2015 5:41 PM PDTdocumente d in this encounter Plan of Treatment +--------+---------+ + + + | Date | Type | Specialty | Care Team | Description | +--------+---------+ + + + | 03/15/ | Office | Cardiology | Randell Franks, | | | 2019 | Visit | | [address] | | | | | | [place], [place] | | | | | | [address] | | | | | | [phone] | | | | | | | [...] | | Attending Surgeon: Shahid Cantu MD Repair Manager(s): Howie Angeles MD, R5 | | [...] for the entirety of the case.Karthik Gonzalez, RIGOBERTOursuant | | to federal Medicare and Medicaid regulations I was present for the entire | | procedure.Shahid Dailey ProfessorTrauma, Critical Care & Acute Care | | SurgeryPRINCE Galo/JESD: 03/02/2015 08:25:39DT: 03/02/2015 09:15:57Job #: | | [id number] | | | |Dr. Chris Cantu was present and scrubbed for the entirety of the case. | | | | | | | |Karthik Gonzalez MD | | | |Pursuant to federal Medicare and Medicaid regulations I was present for the entire procedur e. | | | | | | | |Shahid Cantu MD | |Box Printing Machine Operator | |Trauma, Critical Care & Acute Care Surgery | | | | | | | |Shahid Cantu MD | |TBK/MODL | | | | | | /[id number] | + ---+ CAPILLARY BLOOD GLUCOSE (NO [...] AMES | [address] | [place], [place] | | | JUSTINE DAWN OF JAKY | [address] | [address] | | | TESTS | | | [...] MARQUAM | [address] | [place], [place] | | | JUSTINE DAWN OF CARE | [address] | [address] | | | TESTS | | | [...] - MARQUAM | [address] | [place], [place] | | | [facility]INE [facility] CARE | [address] | [address] | | | TESTS | | | [...] AMES | [address] | [place], [place] | | | JUSTINE DAWN OF JAKY | [address] | [address] | | | TESTS | | | [...] MARQUAM | [address] | [place], [place] | | | JUSTINE DAWN OF CARE | [address] | [address] | | | TESTS | | | [...] - KW[place]U | [address] | [place], [place] | | | L[place]PE[place] POINT OF CARE | [address] | [address] | | | TESTS | | | [...] [facility] | [address] | [place] [address] | | | SERVICES, CORE | CLARENCE [...] | | | LABORATORY | | | ANGUILLAN | | | SERVICES, | | | [...] | + + + + + | [facility] | [address] [facility] | [place] [address] | | | CLAIRE, LYDIA | CLARENCE [...] MARQUAM | [address] | [place], [place] | | | HILL, POINT OF CARE | [address] | [address] | | | TESTS | | | [...] MARQUAM | [address] | [place], [place] | | | JUSTINE [facility] OF JAKY | [facility] | [address] | | | TESTS | | | [...] AMES | [address] | [place], [place] | | | L[place] POINT OF CARE | [address] | [address] | | | TESTS | | | [...] MARQUAM | [address] | [place], [place] | | | JUSTINE DAWN OF CARE | [facility] | [address] | | | TESTS | | | [...] MARPATAM | [address] | [place], [place] | | | JUST[facility] DAWN OF [facility] | [address] | [address] | | | TESTS | | | [...] HOSPITAL LABORATORY | [address] | [place] [address] | | | LYDIA RANGEL | CLARENCE [...] (H) | 60 - 99 mg/dL | [facility] - | | | GLUCOSE, | [...] AMES | [address] | [place], [place] | | | JUSTINE DAWN OF [facility] | [address] | [address] | | | TESTS | | | [...] lidocaine 1% w/ EPI | Given | 08/06/20 | 20 mL | | Surgical | | 1:100K-bupivacaine 0.25% w/ EPI | | 15 11:43 | | | Site | | 1:200K injection INTRAPROCEDURE | | AM PDT | | | | | PRN, Starting [facility] 03/01/15 at 1143, | | | | | | | Until [facility] 03/01/15 at 1207 | | | | | | + +--------+ +-------+------+ + +---+---+ | | | +---+---+ documented in this encounter
--- OUTSIDE RECORDS SUMMARY | ~2019-12-02 | XMS | Encounter Summary ---
Demographics + + + | Address | [address] | | | [place] [address] | + + + | Home Phone [...] [place], [place] | | | | | [address] | | + + + + + | Ellie Vang | ECON | Unknown | | + + + + + Care Team Providers + +------+ + | Care Instrument Checker Name | Role | Phone | [...] on | Center at [facility] [address] | [place] [address] | | | | | [address] | [facility] [address] | | | | | Mailcode: Center | [place], [place] | | | | | [facility] and | [address] | | | | | [facility] 2 | [phone] | | | | | [place], [place] | | | | | | [address] | | | | | | [phone] | | | +--------+ + + + [...] [address] | | | | | | [place], [place] | | | | | | [address] | | | | | | [phone] | | | | | | | | +--------+---------+ + + + documented as of this encounter Visit Diagnoses Not on filedocumented in this encounter"
--- OUTSIDE RECORDS SUMMARY | ~2019-12-02 | XMS | Encounter Summary ---
Demographics + + + | Address | [address] | | | [place] [address] | + + + | Home Phone [...] [place], [place] | | | | | [address] | | + + + + + | Ellie Vang | ECON | Unknown | | + + + + + Care Team Providers + +------+ + | Care Golf Course Architect Name | Role | Phone | + +------+ + | Kenyatta Cardenas MD | PCP | | + +------+ + Encounter Details +--------+ + + + + | Date | Type | Department | Care Team | Description | +--------+ + + + + | 03/10/ | Pharmacy | [facility] | | | | 2018 | Visit | [facility] | | | | | | [address] | | | | | | Mailcode: Center | | | | | | [facility] and | | | | | | [facility] [address] | | | | | | [place], [place] | | | | | | [address] | | | | | | [phone] | | | +--------+ + + + [...] [address] | | | | | | [place], [place] | | | | | | [address] | | | | | | [phone] | | | | | | | | +--------+---------+ + + + documented as of this encounter Visit Diagnoses Not on filedocumented in this encounter"
--- OUTSIDE RECORDS SUMMARY | ~2019-12-02 | XMS | Encounter Summary ---
Demographics + + + | Address | [address] | | | [place] [address] | + + + | Home Phone [...] + | Katalina Padilla | ECON | [address] | | | | | [place], [place] | | | | | [address] | | + + + + + | Ellie Vang | ECON | Unknown | | + + + + + Care Team Providers + +------+ + | Care Repairer Finished Metal Name | Role | Phone | + [...] | | 2019 | | Center at [facility] [address] | MD J[address] | Review | | | | [address] | [facility] | | | | | Mailcode: Center | [place], [place] | | | | | [facility] and | [address] | | | | | [place] [address] | [phone] | | | | | [place], [place] | | | | | | [address] | | | | | | [phone] | | | +--------+ + + + [...] [address] | | | | | | [place] | | | | | | [address] | | | | | | [phone] | | | | | | | | +--------+---------+ + + + documented as of this encounter Visit Diagnoses Not on filedocumented in this encounter"
--- OUTSIDE RECORDS SUMMARY | ~2019-12-02 | XMS | Encounter Summary ---
Demographics + + + | Address | [address] | | | [place] [address] | + + + | Home Phone | | + + + | Preferred Language | Unknown | + + + | Marital Status | | + + + | Sabianism Affiliation | Unknown | + + + | Race | Unknown | + + + | Ethnic Group | Unknown | + + + Author + + + | Author | [facility]erg[facility] With [facility] | | | and [facility] | + + + | Organization | [facility] [...] + +------+ + | Care Fuel Cell Assembler Name | Role | Phone | [...] Closed | | Radiology | Diagnoses | [place], | [facility] | | | | | Deep vein | Dharmesh | Intra Op [address] | | | | | thrombosis | MD Natan | [address] | | | | | (DVT) of | [address] | [place], [place] | | | | | left lower | [address] | [address] | | | | | extremity, | Roshan E | Phone: | | | | | unspecified | [place], [place] | [phone] | | | | | chronicity, | [address] | Fax: | | | | | unspecified | Phone: | [phone] | | | | | vein (HCC) | [phone] | | | | | | Procedures | Fax: | | | | | | IR Removal | [phone] | | | | | | Fibrin | | | | | | | Sheath/Clot | | | | | | | on Device | | | +--------+--------+ + + + + Reason for Visit + + + | Reason | Comments | + + + | Procedure | | + + + Encounter Details +--------+ + + + + | Date | Type | Department | Care Team | Description | +--------+ + + + + | 06/14/ | Telephone | [facility] | Dharmesh Fierro, | Procedure | | 2019 | | INTERVENTIONAL | RN | | | | | RADIOLOGY [address] | | | | | | [address] | | | | | | [place], [place] | | | | | | [address] | | | | | | [phone] | | | +--------+ + + + [...] RICHEY | | | | | | [place] [address] | | | | | | [phone] | | | | | | | | +--------+---------+ + + + documented as of this encounter Results IR Removal Fibrin Sheath/Clot [...] unspecified chronicity, | | unspecified vein (HCC) - Primary | + + documented in this encounter"
--- OUTSIDE RECORDS SUMMARY | ~2019-12-02 | XMS | Encounter Summary ---
Demographics + + + | Address | [address] | | | [place] [address] | + + + | Home Phone [...] [place], [place] | | | | | [address] | | + + + + + | Ellie Vang | ECON | Unknown | | + + + + + Care Team Providers + +------+ + | Care Patient Service Coordinator Name | Role | Phone | [...] | [address] | Lesly Gutiérrez [place], | | | | | Mailcode: CH[facility]A | [place] [address] | | | | | [place], [place] | | | | | | [address] | | | | | | [phone] | | | +--------+ + + + [...] [place] | | | | | | [address] | | | | | | [phone] | | | | | | | | +--------+---------+ + + + documented as of this encounter Visit Diagnoses Not on filedocumented in this encounter"
--- OUTSIDE RECORDS SUMMARY | ~2019-12-02 | XMS | Encounter Summary ---
Demographics + + + | Address | [address] | | | [place] [address] | + + + | Home Phone [...] + | Katalina Padilla | ECON | [address] | | | | | [place], [place] | | | | | [address] | | + + + + + | Ellie Vang | ECON | Unknown | | + + + + + Care Team Providers + +------+ + | Care Refinery Operator Crude Unit Name | Role | Phone | + [...] | [facility] | | | with SLASHER TENDER | | hypertension | [address] | [address] | | | | | Right | [address] | [address] | | | | | heart | [place], [place] | Mailcode: | | | | | failure | [address] | [facility] | | | | | ([facility]) Type | Phone: | Health and | | | | | 2 diabetes | [phone] | Healing, | | | | | mellitus | Fax: | [address] | | | | | without | [phone] | [place], [place] | | | | | complication | | [address] | | | | | , with | | Phone: | | | | | long-term | | | | | | | current use | | Fax: | | | | | of insulin | | [phone] | | | | | ([facility]) | | | | | | | [...] | | 2 diabetes | JEAN, | [place], [place] | | | | | mellitus | [place] [address] | [address] | | | | | without | Phone: | Phone: | | | | | complication | [phone] | [phone] | | | | | (HCC) | Fax: | Fax: | | | | | Procedures | [phone] | [phone] | | | | | [place] EST | | | | | | [...] | 2017 | Visit | Preventive at [facility] | MD [address] | hypertension | | | | [address] | [place], [place] | (Primary Dx); Right | | | | Mailcode: [facility] | [address] | heart failure (HCC); | | | | [facility] | [phone] | Type 2 diabetes | | | | and Healing, | | mellitus without | | | | [address] | | complication, with | | | | [place], [place] | | long-term current | | | | [address] | | use of insulin (HCC) | | | | [phone] | | | +--------+---------+ + + + [...] 81 mg by mouth once daily. CALCIUM CRB&IEQ-G4-BOU58-GENIS ORAL Take 2 tablets by mouth two [...] then she has worked closely with her [facility] doctor and has been been able [...] 12 CREATININE PLASMA (LAB) 0.79 EGFR - SINGAPOREAN >60 EGFR NON -SINGAPOREAN >60 GLUCOSE, PLASMA (LAB) 170 (H) CALCIUM, [...] bariatric surgery for consideration of a alfredo otmeka bypass operation. 4) Hypothyroidism: TSH stable, will [...] [place] | | | | | | [address] | | | | | | [phone] | | | | | | | [...] + + + + + | [facility] | [address] | [place] [address] | | | SERVICES, CORE | CLARENCE [...] + + + + + | [facility] | [address] | [place], [place] | | | SERVICES, LIPID | [address] | [address] | | + + + + + [...] glycated albumin should be considered for monitoring skilled nursing | LABORATORY | | glycemic control in [...] [facility] | [address] | [place] [address] | | | SERVICES, SPECIAL | CLARENCE [...] | | | LABORATORY | | | SINGAPOREAN | | | SERVICES, | | | [...] the MDRD equation recommended by the | [facility] | | National Kidney Disease [...] [facility] | [address] | [place] [address] | | | LYDIA RANGEL | CLARENCE [...]
--- OUTSIDE RECORDS SUMMARY | ~2019-12-02 | XMS | Encounter Summary ---
Demographics + + + | Address | [address] | | | [place] [address] | + + + | Home Phone [...] + | Katalina Padilla | ECON | [address] | | | | | [place], [place] | | | | | [address] | | + + + + + | Ellie Vang | ECON | Unknown | | + + + + + Care Team Providers + +------+ + | Care Poultry Cleaner Name | Role | Phone | [...] 02/07/ | Surgery | 6A Intra Op 3181 | Pradip Starr MD | LAPAROSCOPIC | | 2013 | | [address] | [address] | CHOLECYSTECOMY WITH | | | | Brock [facility] Moreno | [address] [place], | INTRA-OP | | | | Hospital Admitting | [place] [address] | CHOLANGIOGRAM | | | | Desk Located on the | [phone] | | | | | 9th floor | | | | | | [place], [place] | | | | | | [address] | | | +--------+---------+ + + + [...] the resident s note. PRADIP STARR MD [facility] [address]A [address] [place] [address] orrest, Maryam Yu MD - 1:05 PM PDT FORMERLY [facility], [facility] & [facility] DEPARTMENT OF SURGERY EMERGENCY GENERAL SURGERY Division of Trauma and Critical Care INPATIENT PROVIDER DISCHARGE SUMMARY Note Date: 02/08/2014 Admission Date: 02/07/2014 DYLAN ROMERO, Discharge Date: 08 Feb 2014 PCP: Fadi Goodrich DO Attending Physician: Milana Landaverde MD Author: MARYAM RHODES MD HPI: Dylan Romero is a 38 y.o. Female with morbid obesity, bipolar disorder and Type 2 DM who presented to the [facility] ED ([place], [place]) on 02/06/14, with a week hi story of RUQ abdominal pain that radiates to her back. There, she was found to have leukocyt osis and multiple tiny, mobile stones, + sonographic Peterson's sign on abdominal ultrasound, concerning for acute cholecystitis. She was givenIV antibiotics (cipro, flagyl) and pain med s, then transferred to [facility] by [facility] for further care. Ms. Romero endorsed 02/02 [...] up with Trauma Emergency General Surgery at [facility] In 4 weeks. (follow up in 2-4 weeks ) Contact information [address] [facility] Mailcode: L223a [address] [place] [address] Thank you for the [...] the resident s note. PRADIP STARR MD [facility] 10A [address] [place] [address] orrMaryam hill MD - 5:17 AM PDT FOR[facility]LY [facility] & [facility] [place] DEPARTMENT OF SURGERY EMERGENCY GENERAL SURGERY Division [...] tolerated MARYAM RHODES MD PGY-1, General Surgery 505[address] pager number [facility] A [address] [facility] [address] documented in this encoun ter Plan of Treatment +--------+---------+ + + + | Date | Type | Specialty | Care Team | Description | +--------+---------+ + + + | 03/15/ | Office | Cardiology | Randell Franks, | | | 2019 | Visit | | [address] | | | | | | [place], [place] | | | | | | [address] | | | | | | [phone] | | | | | | | | +--------+---------+ + + + + +---------+--------+ + + [...] + | NKECHI - KWAKU | [address] | [place], [place] | | | JUSTINE DAWN OF JAKY | [facility] | [address] | | | TESTS | | | [...] OHORIN - KWAKU | [address] | [place], [place] | | | JUSTINE DAWN OF CARE | [facility] | [address] | | | TESTS | | | [...] AMES | [address] | [place], [place] | | | JUSTINE DAWN OF CARE | [facility] | [address] | | | TESTS | | | [...] OHORIN - KWAKU | [address] | [place], [place] | | | JUSTINE DAWN OF JAKY | [address] | [address] | | | TESTS | | | [...] [facility] | [address] | [place] [address] | | | SERVICES, | [address] [...] | + + + + + | [facility] | [address] | [place] [address] | | | SERVICES, | [address] [...] MARQUAM | [address] | [place], [place] | | | [place] POINT OF CARE | [address] | [address] | | | TESTS | | | [...] [facility] | [address] | [place] [address] | | | SERVICES, CORE | PARK [...] + + | [facility] | [address] [facility] | [place] [address] | | | SERVICES, CORE | PARK [...] [facility] | [address] | [place] [address] | | | SERVICES, CORE | PARK [...] [facility] | [address] [facility] | [place] [address] | | | SERVICES, CORE | CLARENCE [...] | + + + + + | [facility] | [address] | [place] [address] | | | SERVICES, CORE | PARK [...] MARQUAM | [address] | [place], [place] | | | JUSTINE DAWN OF CARE | [address] | [address] | | | TESTS | | | [...] pattern. | | | | | | Family Practice Doctor | | | | | | sections [...] + + + + + | [facility] | [address] | [place] [address] | | | PATHOLOGY | [address] [...] | | | | Starting 02/07/14 at 1630, | | | | | | | Until 02/07/14 at 1856 | | | | | | + +--------+ +-------+------+---------+ +-------+ +-------+---+---------+ | Given | 02/08/20 | 10 mL | | Abdomen | | | 14 4:30 | | | | | | PM PDT | | | | +-------+ +-------+---+---------+ +---+---+ | | | +---+---+ documented in this encounter
--- OUTSIDE RECORDS SUMMARY | ~2019-12-02 | XMS | Encounter Summary ---
Demographics + + + | Address | [address] | | | [place] [address] | + + + | Home Phone | | + + + | Preferred Language | Unknown | + + + | Marital Status | | + + + | Gnosticist Affiliation | Unknown | + + + | Race | Unknown | + + + | Ethnic Group | Unknown | + + + Author + + + | Author | [facility] | | | and Jeffana | + + + | Organization | [facility] | | | and [...] Team Providers + +------+ + | Care Bench Machine Operator Name | Role | Phone | + +------+ + PCP | Unavailable | + +------+ + Encounter Details +--------+ + + + + | Date | Type | Department | Care Team | Description | +--------+ + + + + | 02/16/ | Orders Only | [facility] | Sulema Altamirano | | | 2017 | | CONVERSION [address] | Toshia, COMBINATION SAW OPERATOR [address] | | | | | [address] | [place] | | | | | [place], [place] | [place] [address] | | | | | [address] | [phone] | | | | | [phone] | (Fax) | | +--------+ + + [...] [address] | | | | | | [place] [address] | | | | | | [phone] | | | | | | | [...] 5.71 | | | RAP: 5 mmHg Swing Saw Operator: JESSICA Authenticated by: BENJY | | | MD [facility]I Report Date/Time: 02-16-2017 18:47:15 | | + + + + + | Procedure Note | + + | Aditya, Rad Conversion - 03/17/2019 6:38 PM PDT [...] cmLVPWd: 0.81 | | cmLVOT Area: 3.98 [id number] Diam: 2.25 cm%FS: 32.91 %EF(Teich): 61.28 | [...] (A-L): 20.64 ml/m2LAAs A2C: 14.37 | | tx0UFPUH A-L A2C: 40.74 mlLALs A2C: 4.30 cmLAAs A4C: 16.09 qe8LOKMQ A-L A4C: | | 43.02 mlLALs A4C: 5.10 cmRAAs: 13.58 oy2FRKYP A-L: 33.08 mlRAESV MOD: 32.14 | | mlRALs: 4.73 cmTAPSE: 2.16 cmAV maxP.33 mmHgAV meanP.31 mmHgAV Vmax: | | 1.60 m/Genesis Vmean: 1.08 m/Genesis VTI: 25.19 cmAVA Vmax: 2.75 cm2AVA (VTI): 3.06 | | yi2IALY Vmax: 0.00 cm2/m2AVAI (VTI): 0.00 cm2/m2LVOT maxP.93 mmHgLVOT meanPG: | | 2.50 mmHgLVSI Dopp: 34.92 ml/m2LVSV Dopp: 77.18 mlLVOT Vmax: 1.11 m/sLVOT Vmean: | | 0.73 m/sLVOT VTI: 19.34 cmMV A Jeffrey: 0.81 m/sMV DecT: 249.81 msMV E Jeffrey: 0.82 | | m/sMV E/A Ratio: 1.01MV PHT: 72.44 msMVA By PHT: 3.03 pa9Jeuska e': 0.07 | | m/sSeptal E/e': 11.80Lateral e': 0.14 m/sLateral E/e': 5.71RAP: 5 mmHg | | Swing Saw Operator: DHAuthenticated by: Shirley SILVER Date/Time: 02-16-2017 18:47:15 | [...] | |RAP: 5 mmHg | | | |Swing Saw Operator: JESSICA | |Authenticated by: BENJY HANKINS MD | [...]
--- OUTSIDE RECORDS SUMMARY | ~2019-12-02 | XMS | Encounter Summary ---
Demographics + + + | Address | [address] | | | [place] [address] | + + + | Home Phone [...] [place], [place] | | | | | [address] | | + + + + + | Ellie Vang | ECON | Unknown | | + + + + + Care Team Providers + +------+ + | Care Industrial Maintenance Tech Name | Role | Phone | [...] + + | 01/01/ | Emergency | [facility] Emergency | Fide Hester | | | 2017 - | | Department [address] | MD Raza [address] [facility] | | | | | [address] | [address] | | | 01/02/ | | [facility] | [place], [place] | | | 2017 | | [place], [place] | [address] | | | | | [address] | [phone] | | | | | [phone] | | | | | | | Jaime Yee, | | | | | | ANP [address] | | | | | | [address] | | | | | | [place], [place] | | | | | | [address] | | | | | | [phone] | | | | | | | | | | | | Sheree Aguiar MD | | | | | | [address] | | | | | | [place], [place] | | | | | | [address] | | | | | | | | | | | | Felix Cardoza, | | | | | | CPR AMBULANCE DRIVER [address] | | | | | | [address] | | | | | | [place], [place] | | | | | | [address] | | | | | | [phone] | | | | | | | [...] ready for discharge. Thank you for choosing [facility] for your healthcare needs. Abdominal Hernia Repair: [...] living will and a durable power of business attorney for health care. Bring a copy [...] apply lotions, perfume s, deodorants, or nail guyanese. Do not shave the surgical site yourself. [...] driving, and getting back to your [facility] routine. When should you call your [...] Repair: Before Your Surgery", log into your VendRx a ccount at [email or web address] Access. You can enter U288 in the "Addoway Library" search box . Not on VendRx? Review the Cerephext section of your After Visit Summary for directions on anjel aguero to sign up. Current as of: March 04, 2016 Content Version: 11.2 7892-9721 [employer]. Care instructions adapted under license by [facility]. If you have questions about a medical condition or this instr uction, always ask your healthcare professional. [employer] disclaims any curly anty or liability for [...] in the way you eat. An clinical informatics specialist to help you be more active [...] Prepare for Weight-Loss Surgery", log into your VendRx account at [email or web address] Access. You can enter C413 in the "Addoway Library" s earch box. Not on VendRx? Review the VendRx section of your After Visit Summary for directions on anjel aguero to sign up. Current as of: May 08, 2016 Content Version: 11.2 8005-9558 [employer]. Care instructions adapted under license by [facility]. If you have questions about a medical condition or this instr uction, always ask your healthcare professional. [employer] disclaims any curly anty or liability for [...] | | 0 | | | | CRB&LQL-P1-JLW67-GEN | mouth two times | | | [...] Ball MD - 01/02/2017 7:49 AM PDT [facility] DEPARTMENT OF SURGERY EMERGENCY GENERAL SURGERY [...] wall hernias, laci hobbs was flown from [place] with abdominal pain from a recurrent, reducible [...] uss with Dr. Moore. Mary Ball MD [id number] [facility] A [address] [place] [address] documented in this en counter Plan of Treatment +--------+---------+ + + + | Date | Type | Specialty | Care Team | Description | +--------+---------+ + + + | 03/15/ | Office | Cardiology | Randell Franks, | | | 2019 | Visit | | [address] | | | | | | [place], [place] | | | | | | [address] | | | | | | [phone] | | | | | | | [...] AMES | [address] | [place], [place] | | | [place] POINT OF [facility] | [address] | [address] | | | TESTS | | | [...] | | | LABORATORY | | | [place] | | | SERVICES, | | | [...] [facility] | [address] | [place] [address] | | | LYDIA RANGEL | [address] [...] KWAKU | [address] | [place], [place] | | | [place] PO[place] OF [facility] | [facility] | [address] | | | TESTS | | | [...] | + + + + + | [facility] | [address] | [place] [address] | | | SERVICES, CORE | PARK [...] | + + + + + | [employer] | [address] | [place] [address] | | | SERVICES, CORE | CLARENCE [...] | + + + + + | [facility] - | [address] | [place] [address] | | | [place] | | | [...] [facility] | [address] | [place] [address] | | | CLAIRE, LYDIA | [address]ARENCE [...] 26 | 23 - 29 mmol/L | [facility] - | | | TC02 | | | [place] | | | | | | JUSTINE DAWN | | | | | | OF CARE | | | | | | TESTS | | + + + + + + | ED BG POC | 7.30 (L) | 7.35 - 7.45 | [facility] - | | | PH | | [...] AMES | [address] | [place], [place] | | | JUSTINE DAWN OF CARE | [address] | [address] | | | TESTS | | | [...] [facility] | [address] | [place] [address] | | | SERVICES, | [address] [...] | + + + + + | [facility] | [address] | [place] [address] | | | SERVICES, | [address] [...] | + + + + + | [facility] | [address] | [place] [address] | | | SERVICES, CORE | CLARENCE [...] [facility] | [address] | [place] [address] | | | SERVICES, CORE | PARK [...] | | | LABORATORY | | | [place] | | | SERVICES, | | | [...] | + + + + + | [facility] | [address] | [place] [address] | | | SERVICES, CORE | [address] | | | + + + + + ED INFORMATION EXCHANGE (01/01/2017 8:22 AM PDT) + + + + + + | Component | Value | Ref Range | Performed | Pathologist | | | | | At | Signature | + + + + + + | [facility] | [id number] | | [facility] | | | | [id number] | | MEDICAL | | | | [...] ---- | | | RADHA GOODRICH at [facility] | | | [facility] Unknown Primary Care | | | Unknown - Current Radha Goodrich DO | | | [phone] Primary Care | | | Unknown - Current | | + + + + + + + + | Performing | Address | City/State/Zipcode | Phone Number | | Organization | | | | + + + + + | [facility] | [address] | [place], [place] | [phone] | | TE[employer] | [address] | [address] | | + + + + + [...] rectal, | | | DAILY NEEDED, Starting [facility] | | | 01/01/17 at 2301, [...] mL, intravenous, NEEDED, | | | Starting [facility] 01/01/17 at 1751, | | | [...] | | | | First dose on [facility] 01/01/17 at 2100, | | | [...] 17 6:19 | | | | | [facility] 01/01/17 at 1830 | | PM [...] mg, intramuscular, | | | NEEDED, Starting [facility] 01/01/17 at | | | 1751, Until Thu01/02/17 at 1734, | | | CBG less than 70 mg/dL per Adult | | | Hypoglycemia Protocol | | + +---+ | | | + +---+ | glucose chewable tablet 16 g | | | 16 g, oral, NEEDED, Starting | | | [facility] 01/01/17 at 1751, Until Thu | [...] AM PDT | | | | | [facility] 01/01/17 at 1944, Until | | [...] | | | | ONCE, 1 dose, [facility] 01/01/17 at 0945 | | AM [...]
--- OUTSIDE RECORDS SUMMARY | ~2019-12-02 | XMS | Encounter Summary ---
Demographics + + + | Address | [address] | | | [place] [address] | + + + | Home Phone [...] + | Katalina Padilla | ECON | [address] | | | | | [place], [place] | | | | | [address] | | + + + + + | Ellie Vang | ECON | Unknown | | + + + + + Care Team Providers + +------+ + | Care Photographic Editor Name | Role | Phone | [...] Encounter | Procedural Unit | MD Barb [address] | | | | | ([facility] at [facility] [address] [place], [place] | | | | | [address] | [address] | | | | | Mailcode: [place] | [phone] | | | | | for Health and | | | | | | Healing, Building [address] | | | | | | [place], [place] | | | | | | [address] | | | | | | [phone] | | | +--------+ + + + [...] hours or on weekends and holiday Hospital Feed Crusher toll free [phone] ext. [phone] and have the GI doctor secondary special education teacher paged. The provider who performed your procedure: [...] | | 0 | | | | CRB&OZA-T9-ZOT38-GEN | mouth two times | | | [...] from the original. PRE PROCEDURE NOTE: MR# [id number] Subjective: Elzbieta Cristina is a 44 y.o. [...] [address] | | | | | | [place], [place] | | | | | | [address] | | | | | | [phone] | | | | | | | [...] + | MRN: | [facility] | | [id number] Date: 04/07/2019Patient Name: Elzbieta Curtis #: | ENDOSCOPY | | [id number] of : 1975CSN: [id number] Type: | | | AmbulatoryRoom: Endo 5Procedure: Upper GI | | | endoscopyIndications: Generalized abdominal pain, Nausea | | | with vomitingProviders: TAL LUND MD | | | (Doctor), KEERTHI BERNARD RN (Nurse), | | | [facility] (Pump Service Supervisor)Referring MD: SYLVIA Kilpatrick | | | Mela [...] | | | The [employer] [id number] Endoscope #[id number] | | | was introduced through the [...]
--- OUTSIDE RECORDS SUMMARY | ~2019-12-02 | XMS | Encounter Summary ---
Demographics + + + | Address | [address] | | | [place] [address] | + + + | Home Phone [...] [place], [place] | | | | | [address] | | + + + + + | Ellie Vang | ECON | Unknown | | + + + + + Care Team Providers + +------+ + | Care Traffic Survey Technician Name | Role | Phone | [...] [place] | | | | | | [address] | | | | | | [phone] | | | | | | | | +--------+---------+ + + + documented as of this encounter Visit Diagnoses Not on filedocumented in this encounter"
--- OUTSIDE RECORDS SUMMARY | ~2019-12-02 | XMS | Encounter Summary ---
Demographics + + + | Address | [address] | | | [place] [address] | + + + | Home Phone [...] [place], [place] | | | | | [address] | | + + + + + | Ellie Vang | ECON | Unknown | | + + + + + Care Team Providers + +------+ + | Care Video Software Engineer Name | Role | Phone [...] | | | without | [place] | [address] | | | | | mention of | | Phone: | | | | | obstruction | | [phone] | | | | | or gangrene | | Fax: | | | | | | | [phone] | +--------+--------+ + + + + Encounter [...] | | | | [address] | [place], [place] | | | | | Physicians Larisa, | [address] | | | | | 2nd Floor | [phone] | | | | | [place], [place] | | | | | | [address] | | | | | | [phone] | | | +--------+---------+ + + + [...] fine, afebrile. Abdominal exam is completely benign. [place] are still in, And wound is healed. [place] removed. Drainage is serous, very slight sanguinous. No eviden ce of deep subcutaneous infection. Abdominal wall currently intact. Drain site OK. Assessment/Plan: Satisfactory course following primary repair of incarcerated umbilical he rnia. Pt. Wants to obtain care, including drain removal and diabetic care in [place], so I have referred her to her [...] [address] | | | | | | [facility] [place] | | | | | | [address] | | | | | | [phone] | | | | | | | [...]
--- OUTSIDE RECORDS SUMMARY | ~2019-12-02 | XMS | Encounter Summary ---
Demographics + + + | Address | [address] | | | [place] [address] | + + + | Home Phone [...] + | Organization | [facility] | | | and Jeffana [...] Providers + +------+ + | Care Pump Assembler Name | Role | Phone | + +------+ + PCP | Unavailable | + +------+ + Encounter Details +--------+ + + + + | Date | Type | Department | Care Team | Description | +--------+ + + + + | 10/07/ | Orders Only | [facility] | Dharmesh Escobar, | | | 2017 | | NEPHROLOGY [place] | ROTARY ROCK DRILLING MACHINE OPERATOR [address] | | | | | [address] | [address] | | | | | [address] [place], [place] | [place] | | | | | [address] | [address] | | | | | [phone] | [phone] | | | | | | | [...] | Cardiology | DarlinyanaSulema | | | 2020 | Visit | | [address] | | | | | | [address] | | | | | | [place] [address] | | | | | | [phone] | | | | | | | [...] + + + | Red Blood | 4.79 | 3.8 - 5.1 10 [...] | | | LAB | | | INDONESIAN | | | | | + +---------+ [...]
--- OUTSIDE RECORDS SUMMARY | ~2019-12-02 | XMS | Encounter Summary ---
Demographics + + + | Address | [address] | | | [place] [address] | + + + | Home Phone | | + + + | Preferred Language | Unknown | + + + | Marital Status | | + + + | Catholic Affiliation | Unknown | + + + | Race | Unknown | + + + | Ethnic Group | Unknown | + + + Author + + + | Author | [facility] | | | and Jeffana | + + + | Organization | [facility] | | | and Jeffana [...] Providers + +------+ + | Care Bank President Name | Role | Phone | + +------+ + PCP | Unavailable | + +------+ + Encounter Details +--------+ + + + + | Date | Type | Department | Care Team | Description | +--------+ + + + + | 02/03/ | Abstract | IMELDA TELLEZ | Provider, | | | 2019 | | GASTROENTEROLOGY | MD [address] | | | | | [address] [place] | [place]. | | | | | [address] | [place] [address] | | | | | [address] | | | | | | [phone] | | | +--------+ + + + [...] [address] | | | | | | [place] [address] | | | | | | [phone] | | | | | | | [...] | + +---------+ + + External Lab: [facility] (10/04/2018) + + + + + [...] | + +---------+ + + External Lab: Zeke (10/04/2018) + +-------+ + + + | [...]
--- OUTSIDE RECORDS SUMMARY | ~2019-12-02 | XMS | Encounter Summary ---
Demographics + + + | Address | [address] | | | [place] [address] | + + + | Home Phone [...] [place], [place] | | | | | [address] | | + + + + + | Ellie Vang | ECON | Unknown | | + + + + + Care Team Providers + +------+ + | Care Sales Floor Associate Name | Role | Phone | [...] 02/07/ | Anesthesia | 6A Intra Op [address] | Andie Hope MD | | | 2013 | Event | [address] | [address] | | | | | [facility] | [facility] | | | | | [facility] Admitting | [place] [address] | | | | | Desk Located on the | [phone] | | | | | 9th floor | | | | | | [place], [place] | | | | | | [address] | | | +--------+ + + + [...] [place] | | | | | | [address] | | | | | | [phone] | | | | | | | [...] 4:16 | | | | | Starting Thu02/07/14 at 1616, | | PM PDT | | | | | Until Thu02/07/14 at 1848 | | | | | | + +-------+ + +---+---+ +---+---+ | | | +---+---+ + +-------+ +-------+---+---+ | ePHEDrine injection | Given | 02/08/20 | 10 mg | | | | intravenous, INTRAPROCEDURE PRN, | | 14 4:46 | | | | | Starting Thu02/07/14 at 1640, | | PM PDT | [...] 6:39 | | | | | Starting 02/07/14 at 1839, | | PM PDT | [...]
--- OUTSIDE RECORDS SUMMARY | ~2019-12-02 | XMS | Encounter Summary ---
Demographics + + + | Address | [address] | | | [place] [address] | + + + | Home Phone [...] + | Katalina Padilla | ECON | [address] | | | | | [place], [place] | | | | | [address] | | + + + + + | Ellie Vang | ECON | Unknown | | + + + + + Care Team Providers + +------+ + | Care Child Protection Specialist Name | Role | Phone | [...] | | 2014 | | Center at [facility] [address] | [address] | (11/03 and 11/06 phone | | | | [address] [facility] | Lesly Gutiérrez [place], | calls) | | | | for Health and | [place] [address] | | | | | [facility] [address] | | | | | | [place], [place] | | | | | | [address] | | | | | | [phone] | | | +--------+ + + + [...] | | | | | | [place], [place] | | | | | | [address] | | | | | | [phone] | | | | | | | | +--------+---------+ + + + documented as of this encounter Visit Diagnoses Not on filedocumented in this encounter"
--- OUTSIDE RECORDS SUMMARY | ~2019-12-02 | XMS | Encounter Summary ---
Demographics + + + | Address | [address] | | | [place] [address] | + + + | Home Phone [...] + | Katalina Padilla | ECON | [address] | | | | | [place], [place] | | | | | [address] | | + + + + + | Ellie Vang | ECON | Unknown | | + + + + + Care Team Providers + +------+ + | Care Train Inspector Name | Role | Phone | [...] | | 2020 | | Center at [facility] [address] | MD Jorje [address] | | | | | Jacy Flannery | [address] | | | | | Mailcode: Center | [place], [place] | | | | | [facility] and | [address] | | | | | [facility] 2 | [phone] | | | | | [place], [place] | | | | | | [address] | | | | | | [phone] | | | +--------+ + + + [...] [place] | | | | | | [address] | | | | | | [phone] | | | | | | | | +--------+---------+ + + + documented as of this encounter Visit Diagnoses Not on filedocumented in this encounter"
--- OUTSIDE RECORDS SUMMARY | ~2019-12-02 | XMS | Encounter Summary ---
Demographics + + + | Address | [address] | | | [place] [address] | + + + | Home Phone [...] [place], [place] | | | | | [address] | | + + + + + | Ellie Vang | ECON | Unknown | | + + + + + Care Team Providers + +------+ + | Care Life Insurance Sales Name | Role | Phone | [...] | | 2018 | | Center at [facility] [address] | MD [address] | | | | | [address] | [place], [place] | | | | | Mailcode: [place] | [address] | | | | | [facility] and | [phone] | | | | | [place] [address] | | | | | | [place], [place] | | | | | | [address] | | | | | | [phone] | | | +--------+--------+ + + + [...] Flannery | | | | | | [place], [place] | | | | | | [address] | | | | | | [phone] | | | | | | | | +--------+---------+ + + + documented as of this encounter Visit Diagnoses Not on filedocumented in this encounter"
--- OUTSIDE RECORDS SUMMARY | ~2019-12-02 | XMS | Encounter Summary ---
[...] [place], [place] | | | | | [address] | | + + + + + | Ellie Vang | ECON | Unknown | | + + + + + Care Team Providers + +------+ + | Care Printed Circuit Boards Pinner Name | Role | Phone | + [...] Davis | | | | | [facility] | [facility] | | | | | [facility] Admitting | [place] [address] | | | | | Desk Located on the | [phone] | | | | | 9th floor | | | | | | [place], [place] | | | | | | [address] | | | +--------+ + + + [...] Flannery | | | | | | [place], [place] | | | | | | [address] | | | | | | [phone] | | | | | | | [...]
--- OUTSIDE RECORDS SUMMARY | ~2019-12-02 | XMS | Encounter Summary ---
Demographics + + + | Address | [address] | | | [place] [address] | + + + | Home Phone [...] + | Katalina Padilla | ECON | [address] | | | | | [place], [place] | | | | | [address] | | + + + + + | Ellie Vang | ECON | Unknown | | + + + + + Care Team Providers + +------+ + | Care Cloth Packer Name | Role | Phone | + [...] + + | 02/07/ | Hospital | [address] | [place], | | | 2014 - | Encounter | [address] | [address] | | | | | [place], [place] | [address] | | | 02/08/ | | [address] | [place], [place] | | | 2013 | | [phone] | [address] | | | | | | [phone] | | | | | | | [...] the resident s note. PRADIP STARR MD [facility] [address] [facility] [place] [address] orrMaryam hill MD - 1:05 PM PDT [facility] DEPARTMENT OF SURGERY EMERGENCY GENERAL SURGERY Division of Trauma and Critical Care INPATIENT PROVIDER DISCHARGE SUMMARY Note Date: 02/08/2014 Admission Date: 02/07/2014 DYLAN ROMERO, Discharge Date: 08 Feb 2014 PCP: Fadi Goodrich DO Attending Physician: Mil[place] Landaver[place] MD Author: MARYAM RHODES MD HPI: Dylan Romero is a 38 y.o. Female with morbid obesity, bipolar disorder and Type 2 DM who presented to the [facility] ED ([place], [place]) on 02/06/14, with a week hi story of RUQ abdominal pain that radiates to her back. There, she was found to have leukocyt osis and multiple tiny, mobile stones, + sonographic Peterson's sign on abdominal ultrasound, concerning for acute cholecystitis. She was givenIV antibiotics (cipro, flagyl) and pain med s, then transferred to [facility] by [facility] for further care. Ms. Romero endorsed 7/10 [...] with Trauma Emergency General Surgery at [facility] In 4 weeks. (follow up in 2-4 weeks ) Contact information [address] [facility] Mailcode: L223a [facility] [address] [place] [address] Thank you for the [...] the resident s note. PRADIP STARR MD [facility] [address] [place] [address] orrMaryam hill MD - 5:17 AM PDT [facility] [place] [place] DEPARTMENT OF SURGERY EMERGENCY GENERAL SURGERY Division [...] tolerated MARYAM RHODES MD PGY-1, General Surgery [address] pager number [facility] [place] A [address] [place] [facility] [place] [address] documented in this encoun ter Plan of Treatment +--------+---------+ + + + | Date | Type | Specialty | Care Team | Description | +--------+---------+ + + + | 03/15/ | Office | Cardiology | Randell Franks, | | | 2019 | Visit | | [address] | | | | | | [place], [place] | | | | | | [address] | | | | | | [phone] | | | | | | | [...] AT,GLUC,CA,AST,ALT,B | | | | | | MAGRIE TOTAL,ALK | | | | | | [...] + | Transcriptions | + + | Yamil, Faculty - 02/09/2014 11:16 PM PDT | [...] AMES | [address] | [place], [place] | | | JUSTINE DAWN OF JAKY | [facility] | [address] | | | TESTS | | | | + + + + + CAPILLARY BLOOD GLUCOSE (NO CHG) POC (02/08/2014 10:42 AM PDT) + +---------+ [...] MARQUAM | [address] | [place], [place] | | | JUSTINE DAWN OF CARE | [address] | [address] | | | TESTS | | | [...] (H) | 60 - 99 mg/dL | [facility] - | | | GLUCOSE, | | [...] YAKOVAM | [address] | [place], [place] | | | JUSTINE DAWN OF JAKY | [address] | [address] | | | TESTS | | | [...] AMES | [address] | [place], [place] | | | JUSTINE DAWN OF JAKY | [facility] | [address] | | | TESTS | | | [...] [facility] | [address] | [place] [address] | | | SERVICES, | [address] [...] | + + + + + | [facility] | [address] | [place] [address] | | | SERVICES, | [address] [...] MARQUAM | [address] | [place], [place] | | | JUSTINE DAWN OF JAKY | [address] | [address] | | | TESTS | | | [...] + + | [facility] | [address] | [place] [address] | | | SERVICES, CORE | [address] [...] + | [facility] | [address] [facility] | [place] [address] | | | SERVICES, CORE | [address] [...] + + + + + | [facility] | [address] | [place] [address] | | | SERVICES, CORE | [address] | | | + + + + + MAGNESIUM, PLASMA (02/07/2014 6:32 AM PDT) + +---------+ + + + | Component | Value | Ref Range | Performed | Pathologist | | | | | At | Signature | + +---------+ + + + | MAGNESIUM,P | 1.6 (L) | 1.8 - 2.5 mg/dL | [facility] [...] | + + + + + | [facility] | [address] [facility] | [place] [address] | | | SERVICES, CORE | [address]ENCE [...] | | | LABORATORY | | | [place] | | | SERVICES, | | | [...] | + + + + + | [facility] | [address] | [place] [address] | | | SERVICES, CORE | [address] [...] AMES | [address] | [place], [place] | | | JUSTINE DAWN OF JAKY | [address] | [address] | | | TESTS | | | [...] pattern. | | | | | | Straightedge Worker | | | | | | [...] | + + + + + | [facility] | [address] | [place] [address] | | | PATHOLOGY | [address] [...]
--- OUTSIDE RECORDS SUMMARY | ~2019-12-02 | XMS | Encounter Summary ---
Demographics + + + | Address | [address] | | | [place] [address] | + + + | Home Phone [...] + | Katalina Padilla | ECON | [address] | | | | | [place], [place] | | | | | [address] | | + + + + + | Ellie Vang | ECON | Unknown | | + + + + + Care Team Providers + +------+ + | Care Eligibility And Occupancy Interviewer Name | Role | Phone | + +------+ + | Kenyatta Cardenas MD | PCP | | + +------+ + Reason for Visit + + + | Reason | Comments | + + + | Care Coordination | follow up | + + + Encounter Details +--------+ + + + + | Date | Type | Department | Care Team | Description | +--------+ + + + + | 07/04/ | Telephone | [facility]ive [facility] | Chilo | Care Coordination | | 2019 | | [facility] [address] | MD Jorje [address] | (follow up) | | | | Jacy Flannery | [address] | | | | | Mailcode: [place] | [place], [place] | | | | | [facility] and | [address] | | | | | [place] [address] | [phone] | | | | | [place], [place] | | | | | | [address] | | | | | | [phone] | | | +--------+ + + + [...] Flannery | | | | | | [place], [place] | | | | | | [address] | | | | | | [phone] | | | | | | | | +--------+---------+ + + + documented as of this encounter Visit Diagnoses Not on filedocumented in this encounter"
--- OUTSIDE RECORDS SUMMARY | ~2019-12-02 | XMS | Encounter Summary ---
Demographics + + + | Address | [address] | | | [place] [address] | + + + | Home Phone [...] + | Katalina Padilla | ECON | [address] | | | | | [place], [place] | | | | | [address] | | + + + + + | Ellie Vang | ECON | Unknown | | + + + + + Care Team Providers + +------+ + | Care Parts Remover Name | Role | Phone | + [...] | | 2019 | | Preventive at [facility] | MD [address] | (PHENTERMINE 37.5 mg | | | | [address] | [place], [place] | ) | | | | Mailcode: [facility] | [address] | | | | | [facility] | [phone] | | | | | and [address], | | | | | | [address] | | | | | | [place], [place] | | | | | | [address] | | | | | | [phone] | | | +--------+--------+ + + + [...] [place] | | | | | | [address] | | | | | | [phone] | | | | | | | | +--------+---------+ + + + documented as of this encounter Visit Diagnoses Not on filedocumented in this encounter"
--- OUTSIDE RECORDS SUMMARY | ~2019-12-02 | XMS | Encounter Summary ---
Demographics + + + | Address | [address] | | | [place] [address] | + + + | Home Phone | | + + + | Preferred Language | Unknown | + + + | Marital Status | | + + + | Congregation Affiliation | Unknown | + + + | Race | Unknown | + + + | Ethnic Group | Unknown | + + + Author + + + | Author | [facility] | | | and Jeffana | + + + | Organization | [facility] | | | and [...] Providers + +------+ + | Care Manual Arts Teacher Name | Role | Phone [...] + + | 06/10/ | Telephone | [facility] | [facility], | Referral | | 2019 | | INTERVENTIONAL | Mary Ortiz | | | | | RADIOLOGY [address] | Corrugator Helper | | | | | [address] | | | | | | [place], [place] | | | | | | [address] | | | | | | [phone] | | | +--------+ + + + [...] RICHEY | | | | | | [place] [address] | | | | | | [phone] | | | | | | | | +--------+---------+ + + + documented as of this encounter Visit Diagnoses Not on filedocumented in this encounter"
--- OUTSIDE RECORDS SUMMARY | ~2019-12-02 | XMS | Encounter Summary ---
Demographics + + + | Address | [address] | | | [place] [address] | + + + | Home Phone [...] + | Katalina Padilla | ECON | [address] | | | | | [place], [place] | | | | | [address] | | + + + + + | Ellie Vang | ECON | Unknown | | + + + + + Care Team Providers + +------+ + | Care Loader Malt House Name | Role | Phone | [...] | | | | | bypass | [place], | [facility], | | | | | Nausea and | [place] | 10th Floor | | | | | vomiting, | [address] | [place], [place] | | | | | intractabili | Phone: | [phone] | | | | | ty of | | Phone: | | | | | vomiting not | Fax: | [phone] | | | | | specified, | [phone] | Fax: | | | | | unspecified | | [phone] | | | | | vomiting | [...] | | | | | | CONTRAST AR | | | | | | | CT SCAN OF | | | | | | | ABDOMEN | | | | | | | CONTRAST AR | | | | | | | [...] | | | | | bypass | [place], | [facility], | | | | | Nausea and | [place] | 10th Floor | | | | | vomiting, | [address] | [place], [place] | | | | | intractabili | Phone: | [phone] | | | | | ty of | | Phone: | | | | | vomiting not | Fax: | [phone] | | | | | specified, | [phone] | Fax: | | | | | unspecified | | [phone] | | | | | vomiting | [...] | | | | | | CONTRAST AR | | | | | | | CT SCAN OF | | | | | | | ABDOMEN | | | | | | | CONTRAST AR | | | | | | | [...] | 2019 | Encounter | Services at [facility] | AGACNP [address] | | | | | [address] | [place], [place] | | | | | Lesly Gutiérrez [facility] | [address] | | | | | [address] | [phone] | | | | | [place], [place] | | | | | | [address] | | | | | | [phone] | | | +--------+ + + + [...] | | 0 | | | | CRB&KTB-[id number]-GEN | mouth two times | | | [...] Flannery | | | | | | [place], [place] | | | | | | [address] | | | | | | [phone] | | | | | | | [...]
--- OUTSIDE RECORDS SUMMARY | ~2019-12-02 | XMS | Encounter Summary ---
Demographics + + + | Address | [address] | | | [place] [address] | + + + | Home Phone [...] [place], [place] | | | | | [address] | | + + + + + | Ellie Vang | ECON | Unknown | | + + + + + Care Team Providers + +------+ + | Care Booth Cashier Name | Role | Phone | + +------+ + | Fadi Goodrich DO | PCP | | + +------+ + Encounter Details +--------+------+ + + + | Date | Type | Department | Care Team | Description | +--------+------+ + + + | 05/27/ | Lab | Laboratory at [facility] | | History of Frandy-en-Y | | 2017 | | [address] | | gastric bypass; | | | | [place], [place] | | Ventral hernia | | | | [address] | | without obstruction | | | | [phone] | | or gangrene; Mixed | | [...] Flannery | | | | | | [facility] [place] | | | | | | [address] | | | | | | [phone] | | | | | | | [...] | | e | 4:01 PM | Frnady-en-Y gastric | procedure are in the | [...] [facility] | [address] | [place] [address] | | | SERVICES, CORE | PARK [...] + + + | [facility] | [address] | [place] [address] | | | LYDIA RANGEL | CLARENCE [...] | [facility] | | considered for monitoring watch assembler glycemic control in patients with: | LABORATORY [...] | + + + + + | [facility] | [address] | [place] [address] | | | SERVICES, SPECIAL | PARK [...] | | | | | determined by [employer] | | | | | | Laboratories. See | | | | | | Compliance Statement B: | | | | | | [employer] | | | | | | by [employer],[address] | | | | | | Liliana MartinezJ[facility],[place] | | | | | | [address] | | | | | | [phone].[employer]. | | | | | | com, [...] [facility] | [address] | [place], [place] | | | [facility] | | [address] | | + + + + + [...] | | | LABORATORY | | | SWEDISH | | | SERVICES, | | | [...] [facility] | [address] | [place] [address] | | | SERVICES, CORE | PARK [...] [facility] | [address] | [place] [address] | | | SERVICES, CORE | PARK [...] | + + + + + | [facility] | [address] | [place] [address] | | | SERVICES, CORE | PARK [...] [facility] | [address] | [place] [address] | | | SERVICES, CORE | PARK [...] [facility] | [address] | [place] [address] | | | SERVICES, CORE | PARK [...] | + + + + + | [facility] | [address] | [place] [address] | | | SERVICES, LYDIA | CLARENCE [...]
--- OUTSIDE RECORDS SUMMARY | ~2019-12-02 | XMS | Encounter Summary ---
Demographics + + + | Address | [address] | | | [place] [address] | + + + | Home Phone [...] + | Katalina Padilla | ECON | [address] | | | | | [place], [place] | | | | | [address] | | + + + + + | Ellie Vang | ECON | Unknown | | + + + + + Care Team Providers + +------+ + | Care Client Administrator Name | Role | Phone | + +------+ + | Kenyatta Cardenas MD | PCP | | + +------+ + Encounter Details +--------+ + + + + | Date | Type | Department | Care Team | Description | +--------+ + + + + | 06/23/ | Procedure | [address] | | | | 2018 | Pass | [address] | | | | | | [facility] | | | | | | [facility] Admitting | | | | | | Desk Located on the | | | | | | 9th floor | | | | | | [place], [place] | | | | | | [address] | | | +--------+ + + + [...] Flannery | | | | | | [place], [place] | | | | | | [address] | | | | | | [phone] | | | | | | | | +--------+---------+ + + + documented as of this encounter Visit Diagnoses Not on filedocumented in this encounter"
--- OUTSIDE RECORDS SUMMARY | ~2019-12-02 | XMS | Encounter Summary ---
Demographics + + + | Address | [address] | | | [place] [address] | + + + | Home Phone [...] [place], [place] | | | | | [address] | | + + + + + | Ellie Vang | ECON | Unknown | | + + + + + Care Team Providers + +------+ + | Care Supervisor Commissary Production Name | Role | Phone | [...] Pre-operative | | 2019 | cheduled | [facility] at | | evaluation | | | | [facility] | | | | | | [address] [place] | | | | | | Mail Code: [id number] | | | | | | [facility] | | | | | | and Healing, | | | | | | [address] | | | | | | [place], [place] | | | | | | [address] | | | | | | [phone] | | | +--------+ + + + [...] not have access to check in ti [facility], and we encourage you to contact [...] MG TABLET ATENOLOL 50 MG TABLET CALCIUM CRB&SIL-G3-AWV21-GENIS ORAL CYANOCOBALAMIN (VIT B-12) 1,000 MCG TABLET [...] ch as [employer]/Ly[employer]), or public transportation. 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 documented in this encounter Plan of Treatment +--------+---------+ + + + | Date | Type | Specialty | Care Team | Description | +--------+---------+ + + + | 03/15/ | Office | Cardiology | Randell Franks, | | | 2019 | Visit | | [address] | | | | | | [place], [place] | | | | | | [address] | | | | | | [phone] | | | | | | | | +--------+---------+ + + + documented as of this encounter Visit Diagnoses Not on filedocumented in this encounter
--- OUTSIDE RECORDS SUMMARY | ~2019-12-02 | XMS | Encounter Summary ---
Demographics + + + | Address | [address] | | | [place] [address] | + + + | Home Phone [...] [place], [place] | | | | | [address] | | + + + + + | Ellie Vang | ECON | Unknown | | + + + + + Care Team Providers + +------+ + | Care Contract Post Office Clerk Name | Role | Phone | + +------+ + | Fadi Goodrich DO | PCP | | + +------+ + Encounter Details +--------+ + + + + | Date | Type | Department | Care Team | Description | +--------+ + + + + | 03/28/ | Abstract | Cardiology | Randell Franks, | | | 2014 | | Preventive at [facility] | MD [address] | | | | | [address] | [facility] [place] | | | | | Mailcode: CH9A | [address] | | | | | [facility] | [phone] | | | | | and Healing, | | | | | | [address] | | | | | | [facility] [place] | | | | | | [address] | | | | | | [phone] | | | +--------+ + + + [...] | | 2019 | Visit | | [address] | | | | | | [place], [place] | | | | | | [address] | | | | | | [phone] | | | | | | | | +--------+---------+ + + + documented as of this encounter Visit Diagnoses Not on filedocumented in this encounter"
--- OUTSIDE RECORDS SUMMARY | ~2019-12-02 | XMS | Encounter Summary ---
Demographics + + + | Address | [address] | | | [place] [address] | + + + | Home Phone [...] + | Katalina Padilla | ECON | [address] | | | | | [place], [place] | | | | | [address] | | + + + + + | Ellie Vang | ECON | Unknown | | + + + + + Care Team Providers + +------+ + | Care Drop Press Hand Name | Role | Phone | [...] | | 2015 | | Preventive at [facility] | [address] | | | | | [address] | [place], [place] | | | | | Mailcode: [facility] | [address] | | | | | [facility] | [phone] | | | | | and [address], | | | | | | [address] | | | | | | [place], [place] | | | | | | [address] | | | | | | [phone] | | | +--------+ + + + [...] Flannery | | | | | | [place], [place] | | | | | | [address] | | | | | | [phone] | | | | | | | | +--------+---------+ + + + documented as of this encounter Visit Diagnoses Not on filedocumented in this encounter"
--- OUTSIDE RECORDS SUMMARY | ~2019-12-02 | XMS | Encounter Summary ---
Demographics + + + | Address | [address] | | | [place] [address] | + + + | Home Phone [...] + | Katalina Padilla | ECON | [address] | | | | | [place], [place] | | | | | [address] | | + + + + + | Ellie Vang | ECON | Unknown | | + + + + + Care Team Providers + +------+ + | Care Fire Extinguisher Repairer Inspector Name | Role | Phone | [...] | 2018 | Visit | Center at [facility] [address] | [address] [facility] | obesity ([facility]), BMI | | | | [facility] | [facility] [address] | 88 (Primary Dx); | | | | for Biomode - Biomolecular Determination and | [place], [place] | Type 2 diabetes | | | | [facility], [facility] 2 | [address] | mellitus without | | | | [place], [place] | | complication, with | | | | [address] | | long-term current | | | | [phone] | | use of insulin | | | | | | ([facility]); S/P gastric | | | | | [...] (361 lb 4.8 | 03/10/2018 1:33 PM | | | | oz) | PDT | | + + + + + | Height | - | - | | + + + + + | Body Mass Index | 72.97 | 03/01/2018 12:20 PM | | | [...] encounter Progress Notes Dione Andre RD - 03/10/2018 1:30 PM PDTFormatting of this note might be different fro m the original. Nutrition Counseling: Post-op Bariatric Surgery Follow-Up Patient referred [place]: [place] [id number] Documented time of visit: 1:30 to 2:00 (30 minutes [id number] with patient) Surgery: Gastric Bypass Date of [...] vagina Allergic rhinitis Anemia Anxiety Bipolar disorder ([facility]) Chronic wound infection of abdomen from 2010 Cough Depression Diverticulitis of colon Dizziness Glaucoma Heart burn Hemorrhoids Hernia of abdominal wall Incisional hernia, incarcerated 2012 Insomnia Irregular periods Kidney stone Leaking of urine Leg sore Lymphedema Morbid obesity with body mass index of 70 and over in adult ([facility]) Myalgia and myositis Nausea Neck pain Numbness Osteoarthritis of knee Palpitations Pneumonia Shortness of breath Staphylococcal infection Stroke ([facility]) TIA (transient ischemic attack) due [...] multivitamin & mineral (with iron) supplement, 2/day -0334-8840 mg calcium citrate with vitamin D/day (take [...] in [address],[place] Pager# [phone] Phone: [phone] documented in this en counter Plan of Treatment +--------+---------+ + + + | Date | Type | Specialty | Care Team | Description | +--------+---------+ + + + | 03/15/ | Office | Cardiology | Randell Franks, | | | 2019 | Visit | | [address] | | | | | | [place], [place] | | | | | | [address] | | | | | | [phone] | | | | | | | | +--------+---------+ + + + documented as of this encounter Procedures + +--------+ + + + | Procedure Name | Priori | Date/Time | Associated Diagnosis | Comments | | | ty | | | | + +--------+ + + + | LA MNT RE-ASSESSMNT | Routin | 03/10/2018 | [...] | | | | use of insulin ([facility]) | | | | | | S/P gastric bypass | | + +--------+ + + + documented in this encounter Visit Diagnoses + + | Diagnosis | + + | Severe Morbid obesity (HCC), BMI 88 - Primary Morbid obesity | + + | Type 2 diabetes mellitus without complication, with long-term current use of insulin | | (HCC) | + + | S/P gastric bypass Bariatric surgery status | + + documented in this encounter
--- OUTSIDE RECORDS SUMMARY | ~2019-12-02 | XMS | Encounter Summary ---
Demographics + + + | Address | [address] | | | [place] [address] | + + + | Home Phone [...] [place], [place] | | | | | [address] | | + + + + + | Ellie Vang | ECON | Unknown | | + + + + + Care Team Providers + +------+ + | Care Harbor Master Name | Role | Phone | + [...] | | | | | | [facility], | | | | | | [place] [address] | | | | | | [phone] | | | +--------+ + + + [...] [place] | | | | | | [address] | | | | | | [phone] | | | | | | | | +--------+---------+ + + + documented as of this encounter Visit Diagnoses Not on filedocumented in this encounter"
--- OUTSIDE RECORDS SUMMARY | ~2019-12-02 | XMS | Encounter Summary ---
Demographics + + + | Address | [address] | | | [place] [address] | + + + | Home Phone [...] + | Katalina Padilla | ECON | [address] | | | | | [place], [place] | | | | | [address] | | + + + + + | Ellie Vang | ECON | Unknown | | + + + + + Care Team Providers + +------+ + | Care Buckshot Swage Operator Name | Role | Phone | + +------+ + | Fadi Goodrich DO | PCP | | + +------+ + Reason for Visit + + + | Reason | Comments | + + + | Medical Records | Letter from registered nurse hh case manager. | | Review | | + + + Encounter Details +--------+ + + + + | Date | Type | Department | Care Team | Description | +--------+ + + + + | 11/08/ | Abstract | Digestive Health | Shereen Georges, | Medical Records | | 2014 | | Center at [facility] [address] | AC[address] | Review (Letter from | | | | [address] | [place], [place] | registered nurse hh case manager. ) | | | | Mailcode: [place] | [address] | | | | | [facility] and | [phone] | | | | | [place] [address] | | | | | | [place], [place] | | | | | | [address] | | | | | | [phone] | | | +--------+ + + + [...] [address] | | | | | | [place], [place] | | | | | | [address] | | | | | | [phone] | | | | | | | | +--------+---------+ + + + documented as of this encounter Visit Diagnoses Not on filedocumented in this encounter"
--- OUTSIDE RECORDS SUMMARY | ~2019-12-02 | XMS | Encounter Summary ---
Demographics + + + | Address | [address] | | | [place] [address] | + + + | Home Phone [...] Team Providers + +------+ + | Care Content Strategy Lead Name | Role | Phone | [...] | BROCK Roldan | | | with HOSIERY BAGGER | | hypertension | [address] | | | | | Right | [address] | Ryan rGace | | | | | heart | [place], [place] | [place], | | | | | failure | [address] | [place] | | | | | ([facility]) Type | Phone: | [address] | | | | | 2 diabetes | [phone] | | | | | | mellitus | Fax: | | | | | | without | [phone] | | | | | | complication [...] | 2017 | Visit | Center at [facility] [address] | [address] | BMI of 70 and over, | | | | [facility] | [address]utiér[address] [place], | adult ([facility]) (Primary | | | | for Health and | [place] [address] | Dx); Type 2 | | | | Healing, [address] |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 | | | | [place], [place] | | without | | | | [address] | | complication, with | | | | [phone] | | long-term current | | | [...] of Visit: 10:03 to 10:30 (27 minutes [id number] with patient) (1 hour ap point not [...] eat like she should, tries to eat teacher citizenship things and this does not help. Food [...] post-surgery diet progression. 4. Call or send Tittat message to dietitian with any questions. Contact information was provided. Follow up with dietitian prior to surgery (take 2 Weight management classes as part of 6 mo [facility] supervised diet). Yuli [address]s RD, [facility], [place] [facility] Bariatrics [phone] documented in this enco unter Plan of Treatment +--------+---------+ + + + | Date | Type | Specialty | Care Team | Description | +--------+---------+ + + + | 03/15/ | Office | Cardiology | Randell Franks, | | | 2019 | Visit | | [address] | | | | | | [place], [place] | | | | | | [address] | | | | | | [phone] | | | | | | | | +--------+---------+ + + + documented as of this encounter Procedures + +--------+ + + + | Procedure Name | Priori | Date/Time | Associated Diagnosis | Comments | | | ty | | | | + +--------+ + + + | DE MNT RE-ASSESSMNT | Routin | 02/02/2017 | Morbid obesity | | | X15MIN | e | 12:04 PM | with BMI of 70 and | | | | | PDT | over, adult (HCC) | | | | | | Type 2 diabetes | | | | | | mellitus without | | | | | | complication, with | | | | | | long-term current | | | | | | use of insulin (HCC) | | | | | | Chronic diastolic | | | | | | heart failure (HCC) | | + +--------+ + + [...]
--- OUTSIDE RECORDS SUMMARY | ~2019-12-02 | XMS | Encounter Summary ---
[...] [place], [place] | | | | | [address] | | + + + + + | Ellie Vang | ECON | Unknown | | + + + + + Care Team Providers + +------+ + | Care Weapons Designer Name | Role | Phone | + +------+ + | Kenyatta Cardenas MD | PCP | | + +------+ + Encounter Details +--------+ + + + + | Date | Type | Department | Care Team | Description | +--------+ + + + + | 03/01/ | Procedure | Diagnostic Imaging | | | | 2019 | Pass | Services at [facility] | | | | | | [address] | | | | | | Lesly [place]A | | | | | | [facility], [address] [place] [address] | | | | | | [place], [place] | | | | | | [address] | | | | | | [phone] | | | +--------+ + + + [...] [address] | | | | | | [place], [place] | | | | | | [address] | | | | | | [phone] | | | | | | | | +--------+---------+ + + + documented as of this encounter Visit Diagnoses Not on filedocumented in this encounter"
--- OUTSIDE RECORDS SUMMARY | ~2019-12-02 | XMS | Encounter Summary ---
Demographics + + + | Address | [address] | | | [place] [address] | + + + | Home Phone [...] [place], [place] | | | | | [address] | | + + + + + | Ellie Vang | ECON | Unknown | | + + + + + Care Team Providers + +------+ + | Care Scorer Helper Name | Role | Phone | [...] floor | | | | | | [place], [place] | | | | | | [address] | | | +--------+ + + + [...] [address] | | | | | | [place], [place] | | | | | | [address] | | | | | | [phone] | | | | | | | | +--------+---------+ + + + documented as of this encounter Visit Diagnoses Not on filedocumented in this encounter"
--- OUTSIDE RECORDS SUMMARY | ~2019-12-02 | XMS | Encounter Summary ---
Demographics + + + | Address | [address] | | | [place] [address] | + + + | Home Phone [...] | Organization | [facility] [...] Team Providers + +------+ + | Care Ad Operations Coordinator Name | Role | Phone | + +------+ + | Jorje Hill | PCP | | + +------+ + Reason for Visit + + + | Reason | Comments | + + + | Follow-up | Telephonic | + + + Encounter Details +--------+ + + + + | Date | Type | Department | Care Team | Description | +--------+ + + + + | 10/26/ | Virtual | [facility] | Sulema Altamirano | Chronic diastolic | | 2019 | Office | CARDIOLOGY [place] | [address] | heart failure (HCC) | | | Visit | [address] | [address] | (Primary Dx); | | | | [address] | [place] [address] | History of sinus | | | | [place] | [phone] | tachycardia; History | | | | [address] | | of stroke; HTN, | | | | [phone] | | goal below 130/80; | | [...] (HCC) | +--------+ + + + + Social [...] Instructions Patient Instructions Sulema Altamirano FNP - 10/27/2019 1:00 PM PDTI made No changes to medications See me back in 4 months documented in this encounter Progress Notes Adarsh Karin, FNP - 10/27/2019 1:00 PM PDTFormatting of this note might be differe nt from the original. Date of visit: 10/28/2019 Primary Care Physician: Jorje Hill CHIEF COMPLAINT: Chief Complaint Patient presents with Follow-up Telephonic Elzbieta Cristina has independently initiated the visit. Elzbieta Cristina verbally confirmed her choice to initiate care by, and consents to receive care by Telephone. Participants: Patient All medical advice and/or management options were discussed 10/28/2019. Clinical discussion length with provider: 21-30 minutes of medical discussion via telephone visit ([id number]) Patient has not been seen in office within the past 7 days, and outcome of this call is not to recommend soonest available office visit. Return in about 4 months (around 02/26/2020) for bring medications to all clinic visits, plea se complete testing and labs as ordered. Subjective: Patient ID: Elzbieta Cristina is a 44 y.o. female. CC: Chief Complaint Patient presents with Follow-up Telephonic HPI: see below Assessment & Plan See below HILDA Santos 10/28/2019 HISTORY OF PRESENT ILLNESS: Ms. Elzbieta Cristina is a 44 -year-old woman who I am conducting a telephone visit with due t o pandemic restrictions, and she also has an open abdominal wound requiring twice daily pack ings, so difficult for her to come to the clinic. Today, I reviewed all previous documentation available to me in electronic medical pilar rd and from external sources. 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 Fu, Her current and previous testing and procedures are detailed below. I had seen her last 04/28/2019 when stable , and referred her to Dr. Rascon for evaluation of her sleep apnea , as not assessed since last so much weight . Since I saw her last, she underwent ventral hernia repair on August 19, 2019 developed c omplications of a hematoma and abscess requiring 2 additional surgeries including emergency surgery on September [address] Celis and her last surgery on September [address] Hernandez. She re ports that her abdominal wound has been left open, and she is getting twice daily wound care with packing and that it is slowly healing. She reports she has had some problems with int ernal bleeding, and has been closely monitored with frequent labs. Her blood pressure has b een occasionally on the lower side and occasionally dizziness with all of this going on, but has been better lately, and blood pressure normal today. She reports she has not had any e pisodes of tachycardia, and her pulse is still well controlled and predominantly in the 80's .. She reports she has not had any palpitations, chest pain, or syncope, or signs or symptoms of stroke or TIA, and that her lower extremity edema remains controlled with daily diuretics , and she is no longer short of breath with exertion. She reports they are continuing to mo nitor her INR, which has been labile,. She did not follow-up on my referral to Dr. Rascon due to all of her ongoing medical concern s, but plans to do so in the future, as she continues to lose weight. She followed up with healthcare administration internship at [facility], Dr. Franks, who reported that her diabetes w as now resolved as her A1c was 5.2, and her only problem was her parathyroid, and he doubled her calcium dose, though otherwise she was felt to be doing well. Her weight today is 267 pounds, and she has lost 127 pounds since September 2017 when she weigh ed 394 pounds. She is still planning on getting a place of her own, as she is intolerant of her mother sec ondhand smoke, and plans to move in December. Currently her mother is helping her with her dres sing changes. She reviewed her medications over the phone with me today, and I confirmed with pharmac y dispense record. She again verified she is not , and now on Mirena IUD, and has same sex partne r , so no concerns with her beta [...] con congestion improv ed with sinus surgery. Denies cough and previous YO resolved. Denies hemoptysis or excess scarlett sputum production. Denies orthopnea, PND. Cardiovascular: H lower extremity edema and lymphadenopathy controlled with daily diuretics , palpitations now rare with increased dose of atenolol. Denies chest pain. Denies history of rheumatic fever. Denies claudication . Gastrointestinal: Frandy-en-Y gastric bypass surgery 02/2018,history of GERD. History diver ticulitis history, hernia abdominal wall, ventral hernia, previous nausea and vomiting reso lved with dilatation of gastric stricture 06/23/2018, ventral hernia repair 07/2019, followed by 2 follow-up surgeries for complications, last 08/2019, open wound requiring twice daily p ackings. Denies blood in stool. Genitourinary: Denies Hematuria., [...] History of PE and deep vein thrombosis 2016 , treated with coumadin . Does not bruise/bleed easily. Denies history of cancer Endocrine: History of diabetes resolved with weight loss. Hypothyroidism,followed by Dr. Kat alva, healthcare administration internship at [facility]) . Denies excessive thirst or hunger. Psychiatric/Behavioral: [...] knee pain and hernia pain Lives in [facility] ith her mother who smokes. . Sister is ocular care technologist. Grandchildren ages 4 and 7 live with he r daughter and son-in-law. Disabled , on disability .01/24/2019: working with [employer] to get her own place. Outpatient Medications Prior to Visit Medication Sig Dispense Refill ALPRAZolam (XANAX) 0.5 mg tablet Take 0.5-1 mg by mouth 3 times daily as needed. ascorbic acid (VITAMIN C) 500 MG tablet Take 1,000 mg by mouth Daily. atenolol (TENORMIN) 50 mg tablet Take 1 tablet by mouth nightly. 30 tablet 11 Guzoiyt-Znmzncaxb-Kuqkzuq D (CITRACAL CALCIUM+D PO) Take 4 tablets by mouth 2 times filemon ly. chlorproMAZINE (THORAZINE) 100 mg tablet Take 100 mg by mouth nightly. cyanocobalamin (VITAMIN B-12) 1000 MCG tablet Take 1,000 mcg by mouth Daily. Docusate Sodium (DULCOLAX STOOL SOFTENER PO) Take 200 mg by mouth 2 times daily. ergocalciferol (VITAMIN D-2) 50,000 units capsule Take 1 capsule by mouth every 7 days. ferrous gluconate (FERGON) 324 mg tablet Take 324 mg by mouth. haloperidol (HALDOL) 10 MG tablet Take 10 mg by mouth 3 times daily as needed. lurasidone (LATUDA) 20 mg tablet Take 40 mg by mouth Daily. magnesium oxide (MAG-OX) 400 mg tablet Take 400 mg by mouth 2 times daily. meclizine (ANTIVERT) 25 mg tablet Take 25 mg by mouth every morning. metoclopramide (REGLAN) 10 mg tablet Take 10 mg by mouth as needed for Nausea. Multiple Vitamins-Minerals (MULTIVITAMIN WITH MINERALS) tablet Take 2 tablets by mouth Daily. oxyCODONE-acetaminophen (PERCOCET) 10-325 mg per tablet Take 1 tablet by mouth every 6 hours as needed for Pain. PARoxetine (PAXIL) 10 mg tablet Take 40 mg by mouth Daily. phentermine (ADIPEX-P) 37.5 mg tablet Take 1 tablet by mouth every morning. potassium chloride 20 mEq CR tablet potassium chloride ER 20 mEq tablet,extended releas e TAKE Two TABLETS BY MOUTH 2 TIMES DAILY pramipexole (MIRAPEX) 0.125 MG tablet pramipexole 0.125 mg tablet-2 tablets qhs promethazine (PHENERGAN) 25 mg/mL (IV ONLY) injection promethazine 25 mg/mL injection s olution Take 25 mL every day by injection route. rizatriptan (MAXALT-DUAL RATE DEALER) 5 mg disintegrating tablet Take 5 mg by mouth as needed for Mi graine. May repeat in 2 hours if needed spironolactone (ALDACTONE) 50 mg tablet Take 50 mg by mouth Daily. thyroid (DATA ASSISTANT THYROID) 30 mg tablet DATA ASSISTANT Thyroid 30 mg tablet TAKE ONE TABLET BY MOUTH ONCE DAILY tiZANidine (ZANAFLEX) 4 mg tablet Take 4 mg by mouth every 6 hours as needed. topiramate (TOPAMAX) 50 MG tablet 100 mg 3 times daily. torsemide (DEMADEX) 100 mg tablet Take 100 mg by mouth 2 times daily. traZODone (DESYREL) 150 MG tablet Take 150 mg by mouth nightly. warfarin (COUMADIN) 5 mg tablet Take 5 mg by mouth Daily. No facility-administered medications prior to visit. PHYSICAL EXAM: Wt Readings from Last 3 Encounters: 10/27/19 121.1 kg (267 lb) 06/22/19 124 kg (273 lb 5.9 oz) 04/28/19 123.3 kg (271 lb 12.8 oz) Temp Readings from Last 3 Encounters: 06/22/19 36.7 C (98 F) (Axillary) 02/15/19 36.7 C (98 F) (Temporal) 04/21/16 36.4 C (97.6 F) BP Readings from Last 3 Encounters: 10/27/19 121/80 06/22/19 138/65 04/28/19 130/76 Pulse Readings from Last 3 Encounters: 10/27/19 79 06/22/19 78 04/28/19 76 Vital signs: 01/24/2019: WT 274 LB. BP: 108/70 HR: 80 Vital signs: 12/15/2018. WT 284 LB. BP 106/78 HR 75 Vital signs: 07/29/2018. WT 310 LB. BP 122/72 HR 86 PHYSICAL EXAM NOT PERFORMED TELEPHONIC VISIT-KEPT FOR HISTORY GENERAL: Morbidly obese , in no distress. [...] 12/07/2018 GLUF 84 12/07/2018 BUN 16 12/17/2018 EGFR 71 12/07/2018 Lab Results Component Value [...] Ascending aorta not well seen Echo: 02/16/2017: ([facility]): normal EF of 60-65% , accurate assessment of diastolic function i mpeded by poor tissue doppler, RV normal in size and function, with no significant valvular disease, and aortic root, ascending aorta , and aortic arch normal Echo: 01/02/2016 ([facility]): TDS, cardiac chamber dimensions grossly NML, LVEF >70%, rodriguez tolic function normal for patient. Unable to assess segmental wall motion. RV grossly norm al. Aortic valve sclerotic, no As/AI. Mitral and tricuspid valves grossly normal. Trace T R. No pericardial effusion VASCULAR TESTING AND PROCEDURES Left lower extremity DVT, presumed PE: 10/2015 [facility]. treated with heparin drip and Coumadin 10 in hospital, with Coumadin 6 months as outpatient, ASA 81 mg continued Venous US: right leg, 04/28/2016: No evidence of DVT. EKG EKG 10/27: ([facility]) Normal sinus rhythm. Normal EKG. [...] GFR 92, albumin 3.3. Magnesium: 1.8 Labs: 10/12/2018:([facility]) CMP: Glucose 103, BUN 9, creatinine 0.7, [...] hemoglobin 15 .2, hematocrit 46.4, platelets 306. Labs: 09/15/2019: Hgb A1c 5.2. (103) TSH 2.46. PTH 113. Labs: 09/08/2019: CMP: Sodium 136, potassium 3.4, chloride 104, glucose 128, BUN 16, creatin ine 0.95, GFR 65, AST 12, ALT 10, alk phos 125, total bili 0.7, albumin 3.8. Magnesium 2.1. D-dimer: 371. Troponin T <0.010. CBC: WBC 17, RBC 4.29, hemoglobin 12.8, hematocrit 39.7 , platelets 301. 9 labs: 10/04/2019: CBC: WBC 8.9, RBC 4.51, hemoglobin 13.1, hematocrit 41.3, platelets 341. ASSESSMENT & PLAN: He had a telephone visit with me today for 6-month follow-up and he elected not to come to the clinic due increased risk of infection with open abdominal wound, and pandemic restricti ons. She has problems as detailed below. 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 She is being closely monitored with her electrolytes, and CBC following 3 surgeries in July a august for her ventral hernia repair followed by 2 emergent surgeries for complications . Despite this she has been stable from a cardiovascular standpoint, though did have some p eriods of hypotension with her surgeries and recovery, but no palpitations, and heart rate a nd blood pressure well controlled today per her home vital signs, and she continues to lose weight as has lost 127 pounds in 1 year. Due to all of her medical complications, she has not yet followed up on my referral to Dr Renee Rascon for further evaluation of her sleep apnea, as she needs to be retested for sleep customer solutions coordinator ea given her large weight loss, and if she has sleep apnea, her CPAP settings likely need to be adjusted. I have encouraged her to follow-up with him in the future when opportunity al lows. I made no changes to her cardiac medications today, and she should continue on atenol ol 50 mg nightly for heart rate control and palpitations, daily Coumadin with target INR 2- 3 with previous history of deep vein thrombosis and PE and stroke, potassium 40 mEq bid, mag nesium 400 mg BID, spironolactone 50 mg daily and torsemide 100 mg bid for diastolic heart f ailure and severe lower extremity edema. I will see her back in 4 months, as may her diuretics adjusted with ongoing weight lo ss. She is aware if still under pandemic restrictions, that our next visit can be virtual 1. Chronic diastolic heart failure (HCC) 2. History of sinus tachycardia 3. History of stroke 4. HTN, goal below 130/80 5. Mixed hyperlipidemia 6. Hypokalemia 7. History of bariatric surgery 8. Sleep apnea with use of continuous positive airway pressure (CPAP) 9. Morbid obesity with alveolar hypoventilation (HCC) 10. History of type 2 diabetes mellitus 11. Personal history of DVT (deep vein thrombosis) 12. History of pulmonary embolism No orders of the defined types were placed in this encounter. The following portions of the patient's history were personally reviewed by me and updated as appropriate: EKG tracings, other specialty provider and PCP notes,any Hospital admission and discharge summaries, any ER records , current and previous cardiac testing and procedure reports and d nickie, , medication reviewed over the phone personally by me. Allergies, current medications.labs Family history, past medical history, past social history, past surgical history. Problem list. This encounter was dictated with voice recognition software and may contain inadvertent rec ognition errors. Portions of this chart may have been copied from previous notes for continuity of care purp ose Maryse MARKS [facility] Cardiology 10/28/2019 ERdomerritt han in this encounter Plan of Treatment +--------+---------+ + + + | Date | Type | Specialty | Care Team | Description | +--------+---------+ + + + | 03/05/ | Office | Cardiology | Sulema Altamirano | | 2019 | Visit | | [address] | | | | | | [address] | | | | | | [place] [address] | | | | | | [phone] | | | | | | | [...] + + documented in this encounter Results LABS - EXTERNAL SCAN (11/07/2019 12:00 [...] Unspecified essential hypertension | + + | Mixed hyperlipidemia | + + | Hypokalemia Hypopotassemia | + + | History of bariatric surgery Bariatric surgery status | + + | Sleep apnea with use of continuous positive airway pressure (CPAP) | + + | Morbid obesity with alveolar hypoventilation (HCC) | + + | History of type 2 diabetes mellitus Personal history of other endocrine, metabolic, | | and immunity disorders | + + | Personal history of DVT (deep vein thrombosis) Personal history of venous thrombosis | | and embolism | + + | History of pulmonary embolism Personal history of pulmonary embolism | + + | Hyperparathyroidism (HCC) Hyperparathyroidism, unspecified | + + documented in this encounter
--- OUTSIDE RECORDS SUMMARY | ~2019-12-02 | XMS | Encounter Summary ---
Demographics + + + | Address | [address] | | | [place] [address] | + + + | Home Phone [...] [place], [place] | | | | | [address] | | + + + + + | Ellie Vang | ECON | Unknown | | + + + + + Care Team Providers + +------+ + | Care Rolling Attendant Name | Role | Phone | [...] | | | | | (HCC) | [place], [place] | Hospital, | | | | | Procedures | [address] | 10th Floor | | | | | CT ABDOMEN & | Phone: | [place], [place] | | | | | [address] | | [address] | | | | | IV CONTRAST | Fax: | Phone: | | | | | [place] | [phone] | [phone] | | | | | ABDOMEN&PELV | | Fax: | | | | | IS | | [phone] | | | | | W/CONTRAST | [...] | 2015 | Encounter | Lab at [facility] [address] | | | | | | [address] Mailcode: | | | | | | [facility] | | | | | | Health and Healing, | | | | | | [place] [address], [facility] | | | | | | Floor [place], [place] | | | | | | [address] | | | | | | [phone] | | | +--------+ + + + [...] Flannery | | | | | | [place], [place] | | | | | | [address] | | | | | | [phone] | | | | | | | [...] + + | JUSTINE PEÑA | [address] | [place] [address] | | | OF CARE TESTS | | | | + + + + + documented in this encounter Visit Diagnoses + + | Diagnosis | + + | Abdominal pain | + + | Morbid obesity (HCC) Morbid obesity | + + documented in this encounter"
--- OUTSIDE RECORDS SUMMARY | ~2019-12-02 | XMS | Encounter Summary ---
Demographics + + + | Address | [address] | | | [place] [address] | + + + | Home Phone [...] + | Katalina Padilla | ECON | [address] | | | | | [place], [place] | | | | | [address] | | + + + + + | Ellie Vang | ECON | Unknown | | + + + + + Care Team Providers + +------+ + | Care Hard Metals Hand Engraver Name | Role | Phone | + +------+ + | Fadi Goodrich DO | PCP | | + +------+ + Encounter Details +--------+ + + + + | Date | Type | Department | Care Team | Description | +--------+ + + + + | 03/16/ | Telephone | Digestive Health | Ronna Clarke, | | | 2018 | | Center at [facility] [address] | ACNP [address] | | | | | [address] | Ave [place], [place] | | | | | Mailcode: [place] | [address] | | | | | for Health and | [phone] | | | | | [facility] [address] | | | | | | [place], [place] | | | | | | [address] | | | | | | | [...] Flannery | | | | | | [facility] [place] | | | | | | [address] | | | | | | [phone] | | | | | | | | +--------+---------+ + + + documented as of this encounter Visit Diagnoses Not on filedocumented in this encounter"
--- OUTSIDE RECORDS SUMMARY | ~2019-12-02 | XMS | Encounter Summary ---
Demographics + + + | Address | [address] | | | [place] [address] | + + + | Home Phone [...] + | Katalina Padilla | ECON | [address] | | | | | [place], [place] | | | | | [address] | | + + + + + | Ellie Vang | ECON | Unknown | | + + + + + Care Team Providers + +------+ + | Care Assortment Planner Name | Role | Phone | [...] | | 2017 | | Preventive at [facility] | MD [address] | | | | | [address] | [place], [place] | | | | | Mailcode: [facility] | [address] | | | | | [facility] | [phone] | | | | | and [address] | | | | | | [address] | | | | | | [facility] [place] | | | | | | [address] | | | | | | [phone] | | | +--------+ + + + [...] Flannery | | | | | | [place], [place] | | | | | | [address] | | | | | | [phone] | | | | | | | | +--------+---------+ + + + documented as of this encounter Visit Diagnoses Not on filedocumented in this encounter"
--- OUTSIDE RECORDS SUMMARY | ~2019-12-02 | XMS | Encounter Summary ---
Demographics + + + | Address | [address] | | | [place] [address] | + + + | Home Phone [...] + | Katalina Padilla | ECON | [address] | | | | | [place], [place] | | | | | [address] | | + + + + + | Ellie Vang | ECON | Unknown | | + + + + + Care Team Providers + +------+ + | Care Biazzi Nitrator Operator Name | Role | Phone | [...] | | | | | obstruction | [place], | Mailcode: | | | | | or [place] | [place] | [facility] for | | | | | Abdominal | [address] | Health and | | | | | pain, | Phone: | Healing, | | | | | unspecified | | Building [address] | | | | | abdominal | Fax: | [place], [place] | | | | | location | [phone] | [address] | | | | | Procedures | | Phone: | | | | | CONSULT TO | | [phone] | | | | | SURGERY - | | Fax: | | | | | GENERAL | | [phone] | +--------+--------+ + + + + Encounter [...] | | [address] | Ave [place], [place] | | | | | Mailcode: [place] | [address] | | | | | [facility] and | | | | | | [facility] | | | | | | [facility] [place] | | | | | | [address] | | | | | | | [...] Flannery | | | | | | [place], [place] | | | | | | [address] | | | | | | [phone] | | | | | | | [...]
--- OUTSIDE RECORDS SUMMARY | ~2019-12-02 | XMS | Encounter Summary ---
Demographics + + + | Address | [address] | | | [place] [address] | + + + | Home Phone | | + + + | Preferred Language | Unknown | + + + | Marital Status | | + + + | Congregational Affiliation | Unknown | + + + | Race | Unknown | + + + | Ethnic Group | Unknown | + + + Author + + + | Author | [facility] | | | and Jeffana | + + + | Organization | [facility] [...] Providers + +------+ + | Care School Photographer Name | Role | Phone | [...] Closed | | Radiology | Diagnoses | [place], | [facility] | | | | | Deep vein | Dharmesh | Intra Op [address] | | | | | thrombosis | MD Natan | [address] | | | | | (DVT) of | [address] | [place], [place] | | | | | left lower | [address] | [address] | | | | | extremity, | [place] | Phone: | | | | | unspecified | [place], [place] | [phone] | | | | | chronicity, | [address] | Fax: | | | | | unspecified | Phone: | [phone] | | | | | vein (HCC) | [phone] | | | | | | Procedures | Fax: | | | | | | IR Removal | [phone] | | | | | | Fibrin [...] Closed | | Radiology | Diagnoses | [place], | [facility] | | | | | Deep vein | Dharmesh | Intra Op [address] | | | | | thrombosis | MD Natan | [address] | | | | | (DVT) of | [address] | [place], [place] | | | | | left lower | [address] | [address] | | | | | extremity, | [address] | Phone: | | | | | unspecified | [place], [place] | [phone] | | | | | chronicity, | [address] | Fax: | | | | | unspecified | Phone: | [phone] | | | | | vein (HCC) | [phone] | | | | | | Procedures | Fax: | | | | | | IR Removal | [phone] | | | | | | Fibrin | | | | | | | Sheath/Clot | | | | | | | on Device | | | +--------+--------+ + + + + Encounter Details +--------+ + + + + | Date | Type | Department | Care Team | Description | +--------+ + + + + | 11/27/ | Hospital | [facility] | Dharmesh Melchor | Deep vein thrombosis | | 2019 | Encounter | CENTER CV INTRA OP | MD Natan [address] | (DVT) of left lower | | | | [address] | [place] [address] | extremity, | | | | [place], [place] | [place] [address] | unspecified | | | | [address] | [phone] | chronicity, | | | | [phone] | | unspecified vein | | | | | Christian Dawson MD | (HCC) | | | | | [address] | | | | | | [place], [place] | | | | | | [address] | | | | | | | [...] notice any of the signs, contact the [facility] at between 8:00 am and 5:00 [...] mouth 3 times daily | | | 16 | | [...] | | 0 | | | | Auyxnwq-Kbqlfpvjy-Rm | mouth 2 times daily. | | [...] + + +---------+ + + | thyroid (CARTRIDGE MAKER | CARTRIDGE MAKER Thyroid 30 mg | | 0 | [...] RICHEY | | | | | | [place] [address] | | | | | | [phone] | | | | | | | [...] by: Samir, | | | Christian Knox Date/Time: 06/22/2019 5:17 PM | | + [...] | | | | Signed by: Abilio Dawson, Christian | | Sign Date/Time: 06/22/2019 5:17 PM [...]
--- OUTSIDE RECORDS SUMMARY | ~2019-12-02 | XMS | Encounter Summary ---
Demographics + + + | Address | [address] | | | [place] [address] | + + + | Home Phone | | + + + | Preferred Language | Unknown | + + + | Marital Status | | + + + | Latter-Day Affiliation | Unknown | + + + | Race | Unknown | + + + | Ethnic Group | Unknown | + + + Author + + + | Author | [facility] | | | and Jeffana | + + + | Organization | [facility] | | | and Jeffana [...] [address] | | | | | [place], [place] | [place] [address] | | | | | [address] | [phone] | | | | | [phone] | | | +--------+ + + + [...] RICHEY | | | | | | [place] [address] | | | | | | [phone] | | | | | | | [...] 0.61 m/s | | | MV Dec Pitkin: 2.43 m/s2 MV DecT: 247.51 ms MV E Jeffrey: 0.60 | | | m/s MV E/A Ratio: 0.98 MV PHT: 71.78 ms MVA By PHT: 3.06 | | | cm2 Septal e': 0.06 m/s Septal E/e': 9.54 Lateral e': 0.10 | | | m/s Lateral E/e': 5.84 RAP: 5 mmHg RV s': 0.11 m/s | | | Hide Spreader: JESSICA Authenticated by: Darryl [facility] Report Date/Time: | | | 02-22-2019 [...] cmLVIDd: 4.70 cmLVPWd: 0.79 cmLVOT Area: 3.58 dr9OJJU Diam: 2.13 cm%FS: 39.25 | | %EF(Teich): [...] | Index (A-L): 14.72 ml/m2LAAs A2C: 10.03 fp8KVYXV A-L A2C: 22.69 mlLALs A2C: 3.76 | | cmLAAs A4C: 13.41 gw9WYNMC A-L A4C: 36.80 mlLALs A4C: 4.14 cmRAAs: 11.18 | | ic5BKEKE A-L: 22.84 mlRAESV MOD: 22.10 mlRALs: 4.64 cmTAPSE: 2.04 cmAV maxPG: | | 6.55 mmHgAV meanP.52 mmHgAV Vmax: 1.27 m/Genesis Vmean: 0.88 m/Genesis VTI: 26.50 | | cmAVA Vmax: 2.49 cm2AVA (VTI): 2.39 hg1CAIX Vmax: 0.00 cm2/m2AVAI (VTI): 0.00 | | cm2/m2LVOT maxP.17 mmHgLVOT meanP.82 mmHgLVSI Dopp: 30.83 ml/m2LVSV Dopp: | | 63.52 mlLVOT Vmax: 0.89 m/sLVOT Vmean: 0.65 m/sLVOT VTI: 17.71 cmMV A Jeffrey: | | 0.61 m/sMV Dec Pitkin: 2.43 m/s2MV DecT: 247.51 msMV E Jeffrey: 0.60 m/sMV E/A Ratio: | | 0.98MV PHT: 71.78 msMVA By PHT: 3.06 he3Hvhyog e': 0.06 m/sSeptal E/e': | | 9.54Lateral e': 0.10 m/sLateral E/e': 5.84RAP: 5 mmHgRV s': 0.11 m/s | | Hide Spreader: DHAuthenticated by: Darryl [facility] Date/Time: 02-22-2019 20:8:36 | | IMPRESSION: [...] A Jeffrey: 0.61 m/s | |MV Dec Pitkin: 2.43 m/s2 | |MV DecT: 247.51 ms | |MV E Jeffrey: 0.60 m/s | |MV E/A Ratio: 0.98 | |MV PHT: 71.78 ms | |MVA By PHT: 3.06 cm2 | |Septal e': 0.06 m/s | |Septal E/e': 9.54 | |Lateral e': 0.10 m/s | |Lateral E/e': 5.84 | |RAP: 5 mmHg | |RV s': 0.11 m/s | | | |Hide Spreader: | |Authenticated by: Darryl Merrill | |Report [...]
--- OUTSIDE RECORDS SUMMARY | ~2019-12-02 | XMS | Encounter Summary ---
Demographics + + + | Address | [address] | | | [place] [address] | + + + | Home Phone [...] [place], [place] | | | | | [address] | | + + + + + | Ellie Vang | ECON | Unknown | | + + + + + Care Team Providers + +------+ + | Care Broker Name | Role | Phone | + +------+ + | Fadi Goodrich DO | PCP | | + +------+ + Encounter Details +--------+------+ + + + | Date | Type | Department | Care Team | Description | +--------+------+ + + + | 11/28/ | Lab | Laboratory at [facility] | | Essential | | 2017 | | [address] | | hypertension; Right | | | | [place], [place] | | heart failure (HCC); | | | | [address] | | Type 2 diabetes | | | | [phone] | | mellitus without | | | [...] Flannery | | | | | | [place], [place] | | | | | | [address] | | | | | | [phone] | | | | | | | [...] | | | use of insulin ([facility]) | | + +--------+ + + + [...] | | | use of insulin ([facility]) | | + +--------+ + + + | TSH | Routin | 11/28/2016 | Essential | Results for this | | | e | 10:53 AM | hypertension Right | procedure are in the | | | | PDT | heart failure ([facility]) | [...] | | PDT | heart failure ([facility]) | results section. | | | | | Type 2 diabetes | | | | | | mellitus without | | | | | | complication, with | | | | | | long-term current | | | | | | use of insulin ([facility]) | | + +--------+ + + + [...] [facility] | [address] | [place] [address] | | | SERVICES, CORE | CLARENCE [...] | + + + + + | [facility] | [address] [facility] | [place], [place] | | | SERVICES, LIPID | [address] | [address] | | + + + + + [...] glycated albumin should be considered for monitoring tank terminal gauger | LABORATORY | | glycemic control in [...] + + + | [facility] | [address] | [place] [address] | | | SERVICES, SPECIAL | CLARENCE [...] | | | LABORATORY | | | MALTESE | | | SERVICES, | | | [...] [facility] | [address] | [place] [address] | | | CLAIRE, LYDIA | CLARENCE [...]
--- OUTSIDE RECORDS SUMMARY | ~2019-12-02 | XMS | Encounter Summary ---
Demographics + + + | Address | [address] | | | [place] [address] | + + + | Home Phone [...] [place], [place] | | | | | [address] | | + + + + + | Ellie Vang | ECON | Unknown | | + + + + + Care Team Providers + +------+ + | Care Personal Financial Planner Name | Role | Phone | [...] | | 2014 | | Preventive at [facility] | MD [address] | | | | | [address] | [place], [place] | | | | | Mailcode: [facility] | [address] | | | | | [facility] | [phone] | | | | | and [address]rick | | | | | | [address] | | | | | | [facility] [place] | | | | | | [address] | | | | | | [phone] | | | +--------+ + + + [...] Flannery | | | | | | [place], [place] | | | | | | [address] | | | | | | [phone] | | | | | | | | +--------+---------+ + + + documented as of this encounter Visit Diagnoses Not on filedocumented in this encounter"
--- OUTSIDE RECORDS SUMMARY | ~2019-12-02 | XMS | Encounter Summary ---
Demographics + + + | Address | [address] | | | [place] [address] | + + + | Home Phone [...] + | Katalina Padilla | ECON | [address] | | | | | [place], [place] | | | | | [address] | | + + + + + | Ellie Vang | ECON | Unknown | | + + + + + Care Team Providers + +------+ + | Care Manager Support Services Name | Role | Phone | [...] | 2019 | | Center at [facility] [address] | MD J[address]je [address] | Review | | | | Jacy Flannery | [facility] | | | | | Mailcode: Center | [place], [place] | | | | | [facility] and | [address] | | | | | [place] [address] | [phone] | | | | | [place], [place] | | | | | | [address] | | | | | | [phone] | | | +--------+ + + + [...] Flannery | | | | | | [place] | | | | | | [address] | | | | | | [phone] | | | | | | | | +--------+---------+ + + + documented as of this encounter Visit Diagnoses Not on filedocumented in this encounter"
--- OUTSIDE RECORDS SUMMARY | ~2019-12-02 | XMS | Encounter Summary ---
Demographics + + + | Address | [address] | | | [place] [address] | + + + | Home Phone [...] [place], [place] | | | | | [address] | | + + + + + | Ellie Vang | ECON | Unknown | | + + + + + Care Team Providers + +------+ + | Care Hospital Aides And Assistants Teacher Name | Role | Phone | [...] evaluation | | 2020 | cheduled | [facility] | | | | | | [facility] | | | | | | [address] | | | | | | Mail Code: OC8PM | | | | | | [facility] | | | | | | and Healing, | | | | | | [address] | | | | | | [place], [place] | | | | | | [address] | | | | | | [phone] | | | +--------+ + + + + Anesthesia Record + + + + + | Procedure Name | Responsible | Anesthesia Start | Anesthesia Stop Time | | | Anesthesiologist | Time | | + + + + + | OPEN VENTRAL HERNIA | Andie Hope MD | 08/19/19 1417 | 08/19/19 1735 | | REPAIR (N/A ) | | [...] | | | , POLINA; Endotracheal | HIGH SCHOOL SPORTS COACH | HIGH SCHOOL SPORTS COACH | | | Tube; 7.5; Oral; Cuffed; [...] does not have access to check in [facility], and we encourage you to [...] ACID (VITAMIN C) 500 MG TABLET CALCIUM CRB&EPI-G2-LJE11-GENIS ORAL CYANOCOBALAMIN (VIT B-12) 1,000 MCG TABLET [...] ch as Uber/Lyft), or public transportation. An Uber/Lyft/tank truck driver does not count as the [...] you and look after you on the [facility] night after you have undergone regional blocks [...] it is after office hours, call the [facility] concrete pump operator at [phone] and ask them to page him or h er. documented in this encounter Plan of Treatment +--------+---------+ + + + | Date | Type | Specialty | Care Team | Description | +--------+---------+ + + + | 03/15/ | Office | Cardiology | Randell Franks, | | | 2019 | Visit | | MD [address] | | | | | | [place] | | | | | | [address] | | | | | | [phone] | | | | | | | | +--------+---------+ + + + documented as of this encounter Visit Diagnoses Not on filedocumented in this encounter
--- OUTSIDE RECORDS SUMMARY | ~2019-12-02 | XMS | Encounter Summary ---
Demographics + + + | Address | [address] | | | [place] [address] | + + + | Home Phone [...] [place], [place] | | | | | [address] | | + + + + + | Ellie Vang | ECON | Unknown | | + + + + + Care Team Providers + +------+ + | Care Curing Pickling Packer Name | Role | Phone | [...] [place] | | | | | | [address] | | | | | | [phone] | | | | | | | | +--------+---------+ + + + documented as of this encounter Visit Diagnoses Not on filedocumented in this encounter"
--- OUTSIDE RECORDS SUMMARY | ~2019-12-02 | XMS | Encounter Summary ---
Demographics + + + | Address | [address] | | | [place] [address] | + + + | Home Phone [...] + + + | Author | [facility] | | | and Jeffana | + + + | Organization | [facility] | | | and Jeffana [...] Team Providers + +------+ + | Care Lab Engineer Name | Role | Phone | + +------+ + PCP | Unavailable | + +------+ + Encounter Details +--------+ + + + + | Date | Type | Department | Care Team | Description | +--------+ + + + + | 10/14/ | Orders Only | [facility] | Conversion | | | 2017 | | NEPRHOLOGY CARLYLE | Transaction, | | | | | [address] | Provider Unknown | | | | | [address] [place], [place] | [phone] | | | | | [address] | (Fax) | | | | | [phone] | | | +--------+ + + + [...] RICHEY | | | | | | [place] [address] | | | | | | [phone] | | | | | | | [...] | + +-------+ + + + | Hemoglobin | 13.7 [...]
--- OUTSIDE RECORDS SUMMARY | ~2019-12-02 | XMS | Encounter Summary ---
Demographics + + + | Address | [address] | | | [place] [address] | + + + | Home Phone [...] + | Katalina Padilla | ECON | [address] | | | | | [place], [place] | | | | | [address] | | + + + + + | Ellie Vang | ECON | Unknown | | + + + + + Care Team Providers + +------+ + | Care Fire Pilot Name | Role | Phone | [...] | | [address] | Ave [place], [place] | (Primary Dx); | | | | Mailcode: Center | [address] | Ventral hernia | | | | for Health and | [phone] | without obstruction | | | | Healing, [address] | | or gangrene; Mixed | | | | [place], [place] | | hyperlipidemia; | | | | [address] | | 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[phone] | | type 2 without | | [...] is doing Refill oxycodone Rx +Take acid legislative correspondent for first 3 mos, then wean off [...] to POC and [facility] if any issues. documented in this [...] times daily. , Disp: , Rfl: CALCIUM CRB&UPA-A8-QKQ16-GENIS ORAL, Take 2 tablets by mouth two [...] Dr. Andie Brian Incisional hernia repair 03/01/2015 [facility]/ Dr. Cantu. Primary fascial closure and [...] History Narrative Updated 11/09/15 She lives in [place] with her mother and her sister (also her caregiver) lives in an apa rtment/duplex below. She has 2 grandchildren (age 4 and 7) who live with her daughter and son-in-law Her boyfriend lives in [place] HFpEF, DM2, HTN, Sleep Apnea (unable to [...] program here and refer her to our crop specialist who also has expertise in physical [...] Increase torsemide to pre-surgical dose +Take acid legislative correspondent for first 3 mos, then wean off [...] she will make an appointment with her Operations Trainer to discuss insulin dosing and CBGs 10. [...] to POC and will call or [facility] ss[facility] if any issues. Start time 15:35, end time 15:55. I spent a total of 20 minutes face to face with this pat ient. Over 50% of visit was in counseling. ~ 10 minutes of additional time spent reviewing chart prior to visit and documenting after this visit. Ronna Clarke DNP ACNP CAM MAKER Bariatric Surgery Nurse Practitioner [facility] | [address] | [place], [place] | [address] | documented in this e ncounter Plan of Treatment +--------+---------+ + + + | Date | Type | Specialty | Care Team | Description | +--------+---------+ + + + | 03/15/ | Office | Cardiology | Randell Franks, | | | 2019 | Visit | | [address] | | | | | | [place], [place] | | | | | | [address] | | | | | | [phone] | | | | | | | [...] | | cells No organisms seen | [place] | + + + + + + + + | Performing | Address | City/State/Zipcode | Phone Number | | Organization | | | | + + + + + | [facility] - | [address] | [place] [address] | | | [place] | | | | + + + [...]
--- OUTSIDE RECORDS SUMMARY | ~2019-12-02 | XMS | Encounter Summary ---
Demographics + + + | Address | [address] | | | [place] [address] | + + + | Home Phone [...] + | Organization | [facility] [...] Team Providers + +------+ + | Care Press Reader Name | Role | Phone | + [...] + + | 08/17/ | Refill | [facility] | Sulema Altamirano | Medication Refill | | 2019 | | CARDIOLOGY SAIMA | [address] | | | | | [address] | [address] | | | | | [address] | [place] [address] | | | | | [place] | [phone] | | | | | [address] | | | | | | [phone] | | | +--------+--------+ + + + [...] | | | | | [place] [address] | | | | | | [phone] | | | | | | | | +--------+---------+ + + + documented as of this encounter Visit Diagnoses Not on filedocumented in this encounter"
--- OUTSIDE RECORDS SUMMARY | ~2019-12-02 | XMS | Encounter Summary ---
Demographics + + + | Address | [address] | | | [place] [address] | + + + | Home Phone [...] + | Katalina Padilla | ECON | [address] | | | | | [place], [place] | | | | | [address] | | + + + + + | Ellie Vang | ECON | Unknown | | + + + + + Care Team Providers + +------+ + | Care Entry Level Programmer Name | Role | Phone | [...] [address] | | | | | [facility] at | [place], [place] | | | | | [place] [address] | [address] | | | | | [facility] | [phone] | | | | | [facility] | | | | | | [place], [place] | | | | | | [address] | | | | | | [phone] | | | +--------+--------+ + + + [...] Flannery | | | | | | [place] | | | | | | [address] | | | | | | [phone] | | | | | | | | +--------+---------+ + + + documented as of this encounter Visit Diagnoses Not on filedocumented in this encounter"
--- OUTSIDE RECORDS SUMMARY | ~2019-12-02 | XMS | Encounter Summary ---
Demographics + + + | Address | [address] | | | [place] [address] | + + + | Home Phone [...] + | Katalina Padilla | ECON | [address] | | | | | [place], [place] | | | | | [address] | | + + + + + | Ellie Vang | ECON | Unknown | | + + + + + Care Team Providers + +------+ + | Care Furniture Maker Name | Role | Phone | [...] | | | | | | [place], [place] | | | | | | [address] | | | | | | [phone] | | | +--------+ + + + [...] Flannery | | | | | | [place], [place] | | | | | | [address] | | | | | | [phone] | | | | | | | | +--------+---------+ + + + documented as of this encounter Visit Diagnoses Not on filedocumented in this encounter"
--- OUTSIDE RECORDS SUMMARY | ~2019-12-02 | XMS | Encounter Summary ---
Demographics + + + | Address | [address] | | | [place] [address] | + + + | Home Phone [...] [place], [place] | | | | | [address] | | + + + + + | Ellie Vang | ECON | Unknown | | + + + + + Care Team Providers + +------+ + | Care Tube Heater Name | Role | Phone | [...] | | | | | | [place], [place] | | | | | | [address] | | | | | | [phone] | | | +--------+ + + + [...] Flannery | | | | | | [place], [place] | | | | | | [address] | | | | | | [phone] | | | | | | | | +--------+---------+ + + + documented as of this encounter Visit Diagnoses Not on filedocumented in this encounter"
--- OUTSIDE RECORDS SUMMARY | ~2019-12-02 | XMS | Encounter Summary ---
Demographics + + + | Address | [address] | | | [place] [address] | + + + | Home Phone [...] + | Katalina Padilla | ECON | [address] | | | | | [place], [place] | | | | | [address] | | + + + + + | Ellie Vang | ECON | Unknown | | + + + + + Care Team Providers + +------+ + | Care Health Science Instructor Name | Role | Phone | [...] + + | 09/06/ | Abstract | Digestive Health | Chilo | Medical Records | | 2020 | | Center at [facility] [address] | MD [address] | Review | | | | [address] | [facility] | | | | | Mailcode: Center | [place], [place] | | | | | [facility] and | [address] | | | | | [place] [address] | [phone] | | | | | [place], [place] | | | | | | [address] | | | | | | [phone] | | | +--------+ + + + [...] Flannery | | | | | | [place] | | | | | | [address] | | | | | | [phone] | | | | | | | | +--------+---------+ + + + documented as of this encounter Visit Diagnoses Not on filedocumented in this encounter"
--- OUTSIDE RECORDS SUMMARY | ~2019-12-02 | XMS | Encounter Summary ---
Demographics + + + | Address | [address] | | | [place] [address] | + + + | Home Phone [...] + | Katalina Padilla | ECON | [address] | | | | | [place], [place] | | | | | [address] | | + + + + + | Ellie Vang | ECON | Unknown | | + + + + + Care Team Providers + +------+ + | Care Electric Wirer Name | Role | Phone | [...] | [address] | MD Jodie,PhD [address] | | | | | [facility] | [address] | | | | | Hospital Admitting | [place], [place] | | | | | Desk Located on the | [address] | | | | | 9th floor | [phone] | | | | | [place], [place] | | | | | | [address] | Jason Balbuena | | | | | | MD Twin [address] | | | | | | [address] | | | | | | [place], [place] | | | | | | [address] | | | | | | [phone] | | | | | | | [...] Flannery | | | | | | [place], [place] | | | | | | [address] | | | | | | [phone] | | | | | | | [...]
--- OUTSIDE RECORDS SUMMARY | ~2019-12-02 | XMS | Encounter Summary ---
Demographics + + + | Address | [address] | | | [place] [address] | + + + | Home Phone [...] [place], [place] | | | | | [address] | | + + + + + | Ellie Vang | ECON | Unknown | | + + + + + Care Team Providers + +------+ + | Care Hydropulper Operator Name | Role | Phone | [...] | | 2018 | | Preventive at [facility] | [address] | (Phentermine 37.5mg) | | | | [address] | [place], [place] | | | | | Mailcode: [facility] | [address] | | | | | [facility] | [phone] | | | | | and [address], | | | | | | [address] | | | | | | [place], [place] | | | | | | [address] | | | | | | [phone] | | | +--------+ + + + [...] Flannery | | | | | | [place], [place] | | | | | | [address] | | | | | | [phone] | | | | | | | | +--------+---------+ + + + documented as of this encounter Visit Diagnoses Not on filedocumented in this encounter"
--- OUTSIDE RECORDS SUMMARY | ~2019-12-02 | XMS | Encounter Summary ---
Demographics + + + | Address | [address] | | | [place] [address] | + + + | Home Phone [...] [place], [place] | | | | | [address] | | + + + + + | Ellie Vang | ECON | Unknown | | + + + + + Care Team Providers + +------+ + | Care Pallet Assembler Name | Role | Phone | [...] | | | Ave Mailcode: [address] | [place], [place] | | | | | [facility] | [address] | | | | | and [address], | [phone] | | | | | [place] [address] | | | | | | Floor [place], [place] | | | | | | [address] | | | | | | [phone] | | | +--------+ + + + [...] | | 2019 | Visit | | [address] | | | | | | [place], [place] | | | | | | [address] | | | | | | [phone] | | | | | | | | +--------+---------+ + + + documented as of this encounter Visit Diagnoses Not on filedocumented in this encounter"
--- OUTSIDE RECORDS SUMMARY | ~2019-12-02 | XMS | Encounter Summary ---
Demographics + + + | Address | [address] | | | [place] [address] | + + + | Home Phone [...] [place], [place] | | | | | [address] | | + + + + + [...] Surgery | | | 2016 | | [place] [address] [address] | | | | | | [address] | | | | | | Mailcode: [place] | | | | | | [facility] and | | | | | | [facility] 2 | | | | | | [place], [place] | | | | | | [address] | | | | | | [phone] | | | +--------+ + + + [...] Flannery | | | | | | [place], [place] | | | | | | [address] | | | | | | [phone] | | | | | | | | +--------+---------+ + + + documented as of this encounter Visit Diagnoses Not on filedocumented in this encounter"
--- OUTSIDE RECORDS SUMMARY | ~2019-12-02 | XMS | Encounter Summary ---
Demographics + + + | Address | [address] | | | [place] [address] | + + + | Home Phone [...] + | Katalina Padilla | ECON | [address] | | | | | [place], [place] | | | | | [address] | | + + + + + | Ellie Vang | ECON | Unknown | | + + + + + Care Team Providers + +------+ + | Care Application Software Engineer Name | Role | Phone [...] 2012 | | Center at [facility] 3485 | MD [address] | | | | | Jacy Flannery | [facility] | | | | | Mailcode: [place] | [place], [place] | | | | | [facility] and | [address] | | | | | [facility], [facility] 2 | [phone] | | | | | [place], [place] | | | | | | [address] | | | | | | [phone] | | | +--------+ + + + [...] Flannery | | | | | | [place], [place] | | | | | | [address] | | | | | | [phone] | | | | | | | | +--------+---------+ + + + documented as of this encounter Visit Diagnoses Not on filedocumented in this encounter"
--- OUTSIDE RECORDS SUMMARY | ~2019-12-02 | XMS | Encounter Summary ---
Demographics + + + | Address | [address] | | | [place] [address] | + + + | Home Phone [...] [place], [place] | | | | | [address] | | + + + + + | Ellie Vang | ECON | Unknown | | + + + + + Care Team Providers + +------+ + | Care Child Therapist Name | Role | Phone | [...] | | | | | | [place], [place] | | | | | | [address] | | | | | | [phone] | | | +--------+ + + + [...] | 2019 | Visit | | [address] | | | | | | [facility] [place] | | | | | | [address] | | | | | | [phone] | | | | | | | | +--------+---------+ + + + documented as of this encounter Visit Diagnoses Not on filedocumented in this encounter"
--- OUTSIDE RECORDS SUMMARY | ~2019-12-02 | XMS | Encounter Summary ---
Demographics + + + | Address | [address] | | | [place] [address] | + + + | Home Phone [...] + | Katalina Padilla | ECON | [address] | | | | | [place], [place] | | | | | [address] | | + + + + + | Ellie Vang | ECON | Unknown | | + + + + + Care Team Providers + +------+ + | Care Radiology Equipment Servicer Name | Role | Phone | + +------+ + | Fadi Goodrich DO | PCP | | + +------+ + Encounter Details +--------+ + + + + | Date | Type | Department | Care Team | Description | +--------+ + + + + | 06/02/ | Telephone | Digestive Health | Ronna Clarke, | | | 2018 | | Center at [facility] [address]672 | ACNP [address] | | | | | [address] | Ave [place], [place] | | | | | Mailcode: [place] | [address] | | | | | for Health and | [phone] | | | | | [facility] 2 | | | | | | [place], [place] | | | | | | [address] | | | | | | | [...] [place] | | | | | | [address] | | | | | | [phone] | | | | | | | | +--------+---------+ + + + documented as of this encounter Visit Diagnoses Not on filedocumented in this encounter"
--- OUTSIDE RECORDS SUMMARY | ~2019-12-02 | XMS | Encounter Summary ---
Demographics + + + | Address | [address] | | | [place] [address] | + + + | Home Phone [...] + | Katalina Padilla | ECON | [address] | | | | | [place], [place] | | | | | [address] | | + + + + + [...] | | 2015 | | Preventive at [facility] | [address] | | | | | [address] | [place], [place] | | | | | Mailcode: [facility] | [address] | | | | | [facility] | [phone] | | | | | and [address], | | | | | | Building [address] | | | | | | [place], [place] | | | | | | [address] | | | | | | [phone] | | | +--------+ + + + [...] Flannery | | | | | | [place], [place] | | | | | | [address] | | | | | | [phone] | | | | | | | | +--------+---------+ + + + documented as of this encounter Visit Diagnoses Not on filedocumented in this encounter"
--- OUTSIDE RECORDS SUMMARY | ~2019-12-02 | XMS | Encounter Summary ---
Demographics + + + | Address | [address] | | | [place] [address] | + + + | Home Phone [...] [place], [place] | | | | | [address] | | + + + + + | Ellie Vang | ECON | Unknown | | + + + + + Care Team Providers + +------+ + | Care Wraparound Facilitator Name | Role | Phone | + [...] | 2015 | Review | Center at [facility] 3485 | MD | Decision | | | | [address] | | | | | | Mailcode: [place] | | | | | | [facility] and | | | | | | [facility] 2 | | | | | | [place], [place] | | | | | | [address] | | | | | | [phone] | | | +--------+ + + + [...] Flannery | | | | | | [place], [place] | | | | | | [address] | | | | | | [phone] | | | | | | | | +--------+---------+ + + + documented as of this encounter Visit Diagnoses Not on filedocumented in this encounter"
--- OUTSIDE RECORDS SUMMARY | ~2019-12-02 | XMS | Encounter Summary ---
Demographics + + + | Address | [address] | | | [place] [address] | + + + | Home Phone [...] [place], [place] | | | | | [address] | | + + + + + | Ellie Vang | ECON | Unknown | | + + + + + Care Team Providers + +------+ + | Care Nipple Maker Name | Role | Phone | [...] | | | Procedures | [address] | [address] | | | | | CT ABDOMEN & | Ave | Lesly Gutiérrez [facility] | | | | | PELVIS W IV | Mailcode: | Hospital, | | | | | CONTRAST | Center for | 10th Floor | | | | | | [facility] and | [place], [place] | | | | | | Healing, | [address] | | | | | | Building 2 | Phone: | | | | | | [place], [place] | [phone] | | | | | | [address] | Fax: | | | | | | Phone: | [phone] | | | | | | [phone] | | | | | | | Fax: | | | | | | | [phone] | | +--------+--------+ + + + + [...] ABDOMEN & | Ave | [address] [facility] | | | | | PELVIS W IV | Mailcode: | Hospital, | | | | | CONTRAST | Center for | 10th Floor | | | | | | Health and | [place], [place] | | | | | | Healing, | [address] | | | | | | Building 2 | Phone: | | | | | | [place], [place] | [phone] | | | | | | [address] | Fax: | | | | | | Phone: | [phone] | | | | | | [phone] | | | | | | | Fax: | | | | | | | [phone] | | +--------+--------+ + + + + Encounter Details +--------+ + + + + | Date | Type | Department | Care Team | Description | +--------+ + + + + | 10/07/ | Hospital | Radiology/Imaging | | | | 2012 | Encounter | Lab at [facility] [address] | [address] | [address] Mailcode: | | | | | | [facility] | | | | | | Health and Healing, | | | | | | Building 1, 3rd | | | | | | Floor [place], [place] | | | | | | [address] | | | | | | [phone] | | | +--------+ + + + [...] Flannery | | | | | | [place], [place] | | | | | | [address] | | | | | | [phone] | | | | | | | [...] + | Transcriptions | + + | Yamil Faculty - 10/18/2012 11:00 AM PDT | [...] | | | | | rylie / SEVERIANO SHELTONMAURO | | | | | | 10/07/2012 14:34 PM | | | | + + + + + + + + | Specimen | + + | | + + + +---------+ + + | Performing | Address | City/State/Zipcode | Phone Number | | Organization | | | | + +---------+ + + | [facility] | | | | | [...] + + + + + | NKECHI VALDEZJUSTINE | [address] | [place] [address] | | | OF CARE TESTS | | | | + + + + + documented in this encounter Visit Diagnoses + + | Diagnosis | + + | Hernia Hernia of unspecified site of abdominal cavity without mention of obstruction | | or gangrene | + + documented in this encounter"
--- OUTSIDE RECORDS SUMMARY | ~2019-12-02 | XMS | Encounter Summary ---
Demographics + + + | Address | [address] | | | [place] [address] | + + + | Home Phone [...] + | Author | [facility] | | | and Jeffana | + + + | Organization | [facility] | | [...] Providers + +------+ + | Care Client Relationship Executive Name | Role | Phone | + +------+ + PCP | Unavailable | + +------+ + Encounter Details +--------+ + + + + | Date | Type | Department | Care Team | Description | +--------+ + + + + | 12/23/ | Orders Only | [facility] | Conversion | | | 2017 | | NEPHROLOGY JESUS | Transaction, | | | | | [address] | Provider Unknown | | | | | [address] [place] | | | | | | [address] | (Fax) | | | | | [phone] | | | +--------+ + + + [...] RICHEY | | | | | | [place] [address] | | | | | | [phone] | | | | | | | [...]
--- OUTSIDE RECORDS SUMMARY | ~2019-12-02 | XMS | Encounter Summary ---
Demographics + + + | Address | [address] | | | [place] [address] | + + + | Home Phone [...] [place], [place] | | | | | [address] | | + + + + + | Ellie Vang | ECON | Unknown | | + + + + + Care Team Providers + +------+ + | Care Refuse Laborer Name | Role | Phone | + [...] | | | | | (HCC) | [place], [place] | Hospital, | | | | | Procedures | [address] | 10th Floor | | | | | CT ABDOMEN & | Phone: | [place], [place] | | | | | PELVIS WWO | | [address] | | | | | IV CONTRAST | Fax: | Phone: | | | | | [address] CT | [phone] | [phone] | | | | | ABDOMEN&PELV | | Fax: | | | | | IS | | [phone] | | | | | W/CONTRAST | [...] | 2015 | Encounter | Lab at [facility] [address] | | | | | | [address] Mailcode: | | | | | | [facility] | | | | | | Health and Healing, | | | | | | [place] [address], [facility] | | | | | | Floor [place], [place] | | | | | | [address] | | | | | | [phone] | | | +--------+ + + + [...] Flannery | | | | | | [place], [place] | | | | | | [address] | | | | | | [phone] | | | | | | | [...] + + | JUSTINE PEÑA | [address] | [place] [address] | | | OF CARE TESTS | | | | + + + + + documented in this encounter Visit Diagnoses + + | Diagnosis | + + | Abdominal pain | + + | Morbid obesity (HCC) Morbid obesity | + + documented in this encounter"
--- OUTSIDE RECORDS SUMMARY | ~2019-12-02 | XMS | Encounter Summary ---
Demographics + + + | Address | [address] | | | [place] [address] | + + + | Home Phone [...] + | Katalina Padilla | ECON | [address] | | | | | [place], [place] | | | | | [address] | | + + + + + | Ellie Vang | ECON | Unknown | | + + + + + Care Team Providers + +------+ + | Care Multi Site Leasing Consultant Name | Role | Phone | [...] | | | | | essential | [address] | [address] | | | | | hypertension | [address], | Ave | | | | | Type II or | [address] | [place], [place] | | | | | unspecified | [place], [place] | [address] | | | | | type | [address] | Phone: | | | | | diabetes | Phone: | [phone] | | | | | mellitus | [phone] | Fax: | | | | | without | Fax: | [phone] | | | | | mention of | [phone] | | | | | | complication [...] | Visit | Preventive at [facility] | MD [address] | mellitus (HCC) | | | | [address] | [place], [place] | (Primary Dx); | | | | Mailcode: 9A | [address] | Migraine headache | | | | [facility] | [phone] | | | | | and [address], | | | | | | Building [address] | | | | | | [place], [place] | | | | | | [address] | | | | | | [phone] | | | +--------+---------+ + + + [...] she is hypothyroid and put her on [place] Thyroid hormone replacement therapy. Her heart rate [...] 2019 | Visit | | [address] | | | | | | [place], [place] | | | | | | [address] | | | | | | [phone] | | | | | | | [...] | + + + + + | [facility] | [address] | [place] [address] | | | SERVICES, SPECIAL | PARK [...]
--- OUTSIDE RECORDS SUMMARY | ~2019-12-02 | XMS | Encounter Summary ---
Demographics + + + | Address | [address] | | | [place] [address] | + + + | Home Phone [...] + | Katalina Padilla | ECON | [address] | | | | | [place], [place] | | | | | [address] | | + + + + + | Ellie Vang | ECON | Unknown | | + + + + + Care Team Providers + +------+ + | Care Chief Construction Inspector Name | Role | Phone | [...] | [address] | MD Jodie,PhD [address] | | | | | [facility] | [address] | | | | | Hospital Admitting | [place], [place] | | | | | Desk Located on the | [address] | | | | | 9th floor | [phone] | | | | | [place], [place] | | | | | | [address] | Jason Balbuena | | | | | | MD Twin [address] | | | | | | [address] | | | | | | [place], [place] | | | | | | [address] | | | | | | [phone] | | | | | | | [...] Flannery | | | | | | [place], [place] | | | | | | [address] | | | | | | [phone] | | | | | | | [...]
--- OUTSIDE RECORDS SUMMARY | ~2019-12-02 | XMS | Encounter Summary ---
Demographics + + + | Address | [address] | | | [place] [address] | + + + | Home Phone [...] + | Katalina Padilla | ECON | [address] | | | | | [place], [place] | | | | | [address] | | + + + + + | Ellie Vang | ECON | Unknown | | + + + + + Care Team Providers + +------+ + | Care Foreign Correspondent Name | Role | Phone | + +------+ + | Fadi Goodrich DO | PCP | | + +------+ + Encounter Details +--------+ + + + + | Date | Type | Department | Care Team | Description | +--------+ + + + + | 07/19/ | Abstract | Digestive Health | Kathy Feldman, | | | 2012 | | Center at [facility] 3485 | SALES OFFICER [address] | | | | | [address] | [facility] 350 | | | | | Mailcode: Center | [place], [place] | | | | | [facility] Health and | [address] | | | | | [facility] 2 | [phone] | | | | | [place], [place] | | | | | | [address] | | | | | | [phone] | | | +--------+ + + + [...] Flannery | | | | | | [place], [place] | | | | | | [address] | | | | | | [phone] | | | | | | | | +--------+---------+ + + + documented as of this encounter Visit Diagnoses Not on filedocumented in this encounter"
--- OUTSIDE RECORDS SUMMARY | ~2019-12-02 | XMS | Encounter Summary ---
Demographics + + + | Address | [address] | | | [place] [address] | + + + | Home Phone | | + + + | Preferred Language | Unknown | + + + | Marital Status | | + + + | Jainism Affiliation | Unknown | + + + | Race | Unknown | + + + | Ethnic Group | Unknown | + + + Author + + + | Author | [facility] | | | and Jeffana | + + + | Organization | [facility] | | | and [...] Team Providers + +------+ + | Care Systems Design Engineer Name | Role | Phone | + +------+ + | Jorje Hill | PCP | | + +------+ + Encounter Details +--------+ + + + + | Date | Type | Department | Care Team | Description | +--------+ + + + + | 06/17/ | Telephone | [facility] | Christian Dawson, | | | 2018 | | CENTER [facility] OP | [address] | | | | | [address] | [address] | | | | | [place], [place] | [place] [address] | | | | | [address] | [phone] | | | | | [phone] | | | +--------+ + + + [...] RICHEY | | | | | | [place] [address] | | | | | | [phone] | | | | | | | | +--------+---------+ + + + documented as of this encounter Visit Diagnoses Not on filedocumented in this encounter"
--- OUTSIDE RECORDS SUMMARY | ~2019-12-02 | XMS | Encounter Summary ---
Demographics + + + | Address | [address] | | | [place] [address] | + + + | Home Phone [...] [place], [place] | | | | | [address] | | + + + + + | Ellie Vang | ECON | Unknown | | + + + + + Care Team Providers + +------+ + | Care Equipment Specialist Name | Role | Phone | [...] | | 2019 | | Center at [facility] 3485 | MD Jorje [address] | Review | | | | [address] | [facility] | | | | | Mailcode: Center | [place], [place] | | | | | [facility] and | [address] | | | | | [place] [address] | [phone] | | | | | [place], [place] | | | | | | [address] | | | | | | [phone] | | | +--------+ + + + [...] Flannery | | | | | | [place] | | | | | | [address] | | | | | | [phone] | | | | | | | | +--------+---------+ + + + documented as of this encounter Visit Diagnoses Not on filedocumented in this encounter"
--- OUTSIDE RECORDS SUMMARY | ~2019-12-02 | XMS | Encounter Summary ---
Demographics + + + | Address | [address] | | | [place] [address] | + + + | Home Phone [...] + | Katalina Padilla | ECON | [address] | | | | | [place], [place] | | | | | [address] | | + + + + + | Ellie Vang | ECON | Unknown | | + + + + + Care Team Providers + +------+ + | Care Associate Scientist Name | Role | Phone | [...] | | | | | | [address] [place], [place] | | | | | | [address] | | | | | | [phone] | | | +--------+ + + + [...] Flannery | | | | | | [place], [place] | | | | | | [address] | | | | | | [phone] | | | | | | | | +--------+---------+ + + + documented as of this encounter Visit Diagnoses Not on filedocumented in this encounter"
--- OUTSIDE RECORDS SUMMARY | ~2019-12-02 | XMS | Encounter Summary ---
Demographics + + + | Address | [address] | | | [place] [address] | + + + | Home Phone | | + + + | Preferred Language | Unknown | + + + | Marital Status | | + + + | Mu-Ism Affiliation | Unknown | + + + | Race | Unknown | + + + | Ethnic Group | Unknown | + + + Author + + + | Author | [facility] | | | and Jeffana | + + + | Organization | [facility] | | | and [...] Providers + +------+ + | Care General Purchasing Agent Name | Role | Phone | + +------+ + PCP | Unavailable | + +------+ + Encounter Details +--------+ + + + + | Date | Type | Department | Care Team | Description | +--------+ + + + + | 03/ | Orders Only | [facility] | Dharmesh Escobar, | | | 2018 | | NEPHROLOGY [place] | PORTABLE TRACK CREW CHIEF [address] | | | | | [address] | [address] | | | | | [address] [place], [place] | [place] | | | | | [address] | [address] | | | | | [phone] | [phone] | | | | | | | [...] F | | | | | | [place] [address] | | | | | | [phone] | | | | | | | [...] | | | LAB | | | GAMBIAN | | | | | + +---------+ [...]
--- OUTSIDE RECORDS SUMMARY | ~2019-12-02 | XMS | Encounter Summary ---
Demographics + + + | Address | [address] | | | [place] [address] | + + + | Home Phone [...] | Organization | [facility] | [...] Team Providers + +------+ + | Care Barrel Raiser Helper Name | Role | Phone | + +------+ + PCP | Unavailable | + +------+ + Encounter Details +--------+ + + + + | Date | Type | Department | Care Team | Description | +--------+ + + + + | 12/07/ | Orders Only | [facility] | Conversion | | | 2019 | | NEPHROLOGY JESUS | Transaction, | | | | | [address] | Provider Unknown | | | | | [address] | | | | | | [address] | (Fax) | | | | | [phone] | | | +--------+ + + + [...] RICHEY | | | | | | [place] [address] | | | | | | [phone] | | | | | | | | +--------+---------+ + + + documented as of this encounter Procedures + +--------+ + + + | Procedure Name | Priori | Date/Time | Associated Diagnosis | Comments | | | ty | | | | + +--------+ + + + | EXTERNAL LAB: [facility] | Routin | 12/07/2018 | | Results [...] + + + | Red Blood | 5.00 | 3.8 - 5.1 10 [...] | | | LAB | | | ESTONIAN | | | | | + +-------+ [...]
--- OUTSIDE RECORDS SUMMARY | ~2019-12-02 | XMS | Encounter Summary ---
Demographics + + + | Address | [address] | | | [place] [address] | + + + | Home Phone [...] [place], [place] | | | | | [address] | | + + + + + | Ellie Vang | ECON | Unknown | | + + + + + Care Team Providers + +------+ + | Care Underground Drill Operator Name | Role | Phone | [...] | Center at [facility] [address] | | (Primary Dx) | | | | [address] | | | | | | Mailcode: Center | | | | | | for Health and | | | | | | [facility] [address] [facility], [facility] 2 | | | | | | [place], [place] | | | | | | [address] | | | | | | [phone] | | | +--------+---------+ + + + [...] of Class: 2:00 until 3:00 (60 minutes lrbg-[id number] with patient) OBJECTIVE: Height: Ht Readings from [...] or sharing information. Yes Y[address], [facility], [place] Pager# [phone] documented in this enc ounter Plan of [...] [place] | | | | | | [address] | | | | | | [phone] | | | | | | | | +--------+---------+ + + + documented as of this encounter Visit Diagnoses + + | Diagnosis | + + | Morbid obesity (HCC) - Primary Morbid obesity | + + documented in this encounter
--- OUTSIDE RECORDS SUMMARY | ~2019-12-02 | XMS | Encounter Summary ---
Demographics + + + | Address | [address] | | | [place] [address] | + + + | Home Phone | | + + + | Preferred Language | Unknown | + + + | Marital Status | | + + + | Yazidism Affiliation | Unknown | + + + | Race | Unknown | + + + | Ethnic Group | Unknown | + + + Author + + + | Author | and [facility] | | | and Jeffana | + + + | Organization | and [facility] | | | and [...] Providers + +------+ + | Care Shipfitter Name | Role | Phone | + +------+ + | Jorje Hill | PCP | | + +------+ + Reason for Visit + + + | Reason | Comments | + + + | Follow-up(Procedure) | | + + + Encounter Details +--------+ + + + + | Date | Type | Department | Care Team | Description | +--------+ + + + + | 06/27/ | Telephone | [facility] | Dharmesh Fierro, | Follow-up(Procedure) | | 2019 | | INTERVENTIONAL | RN | | | | | RADIOLOGY [address] | | | | | | [address] | | | | | | [facility] [place] | | | | | | [address] | | | | | | [phone] | | | +--------+ + + + [...] RICHEY | | | | | | [place] [address] | | | | | | [phone] | | | | | | | | +--------+---------+ + + + documented as of this encounter Visit Diagnoses Not on filedocumented in this encounter"
--- OUTSIDE RECORDS SUMMARY | ~2019-12-02 | XMS | Encounter Summary ---
Demographics + + + | Address | [address] | | | [place] [address] | + + + | Home Phone [...] [place], [place] | | | | | [address] | | + + + + + | Ellie Vang | ECON | Unknown | | + + + + + Care Team Providers + +------+ + | Care Value Stream Coach Name | Role | Phone | [...] | 2015 | Review | Center at [facility] [address]85 | MD | Decision | | | | [address] | | | | | | Mailcode: [place] | | | | | | [facility] and | | | | | | [facility] 2 | | | | | | [place], [place] | | | | | | [address] | | | | | | [phone] | | | +--------+ + + + [...] Flannery | | | | | | [place], [place] | | | | | | [address] | | | | | | [phone] | | | | | | | | +--------+---------+ + + + documented as of this encounter Visit Diagnoses Not on filedocumented in this encounter"
--- OUTSIDE RECORDS SUMMARY | ~2019-12-02 | XMS | Encounter Summary ---
Demographics + + + | Address | [address] | | | [place] [address] | + + + | Home Phone [...] + | Katalina Padilla | ECON | [address] | | | | | [place], [place] | | | | | [address] | | + + + + + | Ellie Vang | ECON | Unknown | | + + + + + Care Team Providers + +------+ + | Care Internist Medical Doctor Md Name | Role | Phone | + [...] | 2014 | | Preventive at [facility] | MD [address] | | | | | [address] | [place], [place] | | | | | Mailcode: [facility] | [address] | | | | | [facility] | [phone] | | | | | and Erick | | | | | | Building [address] | | | | | | [facility] [place] | | | | | | [address] | | | | | | [phone] | | | +--------+ + + + [...] [place] | | | | | | [address] | | | | | | [phone] | | | | | | | | +--------+---------+ + + + documented as of this encounter Visit Diagnoses Not on filedocumented in this encounter"
--- OUTSIDE RECORDS SUMMARY | ~2019-12-02 | XMS | Encounter Summary ---
Demographics + + + | Address | [address] | | | [place] [address] | + + + | Home Phone [...] [place], [place] | | | | | [address] | | + + + + + | Ellie Vang | ECON | Unknown | | + + + + + Care Team Providers + +------+ + | Care Franchise Development Manager Name | Role | Phone [...] 2013 | | Preventive at [facility] | MD [address] | | | | | [address] | [place], [place] | | | | | Mailcode: CH9A | [address] | | | | | [facility] | [phone] | | | | | and Healing, | | | | | | Building [address] | | | | | | [facility] [place] | | | | | | [address] | | | | | | [phone] | | | +--------+ + + + [...] [address]ann[address] | | | | | | [place], [place] | | | | | | [address] | | | | | | [phone] | | | | | | | | +--------+---------+ + + + documented as of this encounter Visit Diagnoses Not on filedocumented in this encounter"
--- OUTSIDE RECORDS SUMMARY | ~2019-12-02 | XMS | Encounter Summary ---
Demographics + + + | Address | [address] | | | [place] [address] | + + + | Home Phone [...] + | Katalina Padilla | ECON | [address] | | | | | [place], [place] | | | | | [address] | | + + + + + | Ellie Vang | ECON | Unknown | | + + + + + Care Team Providers + +------+ + | Care Documentation Billing Clerk Name | Role | Phone | [...] at [facility] | MD [address] | | | | | [address] | [facility] [place] | | | | | Mailcode: CH9A | [address] | | | | | [facility] | [phone] | | | | | and Healing, | | | | | | [address] | | | | | | [facility] [place] | | | | | | [address] | | | | | | [phone] | | | +--------+ + + + [...] | | 2019 | Visit | | [address] | | | | | | [place], [place] | | | | | | [address] | | | | | | [phone] | | | | | | | | +--------+---------+ + + + documented as of this encounter Visit Diagnoses Not on filedocumented in this encounter"
--- OUTSIDE RECORDS SUMMARY | ~2019-12-02 | XMS | Encounter Summary ---
Demographics + + + | Address | [address] | | | [place] [address] | + + + | Home Phone [...] + | Katalina Padilla | ECON | [address] | | | | | [place], [place] | | | | | [address] | | + + + + + | Ellie Vang | ECON | Unknown | | + + + + + Care Team Providers + +------+ + | Care [employer] Name | Role | Phone | + +------+ + | Fadi Goodrich DO | PCP | | + +------+ + Encounter Details +--------+ + + + + | Date | Type | Department | Care Team | Description | +--------+ + + + + | 02/15/ | Abstract | Digestive Health | Hernandez Brian, | | | 2012 | | Center at [facility] [address] | MD [address] | | | | | [address] | [facility] | | | | | Mailcode: [place] | [place], [place] | | | | | [facility] and | [address] | | | | | [facility] 2 | [phone] | | | | | [place], [place] | | | | | | [address] | | | | | | [phone] | | | +--------+ + + + [...] Flannery | | | | | | [place], [place] | | | | | | [address] | | | | | | [phone] | | | | | | | | +--------+---------+ + + + documented as of this encounter Visit Diagnoses Not on filedocumented in this encounter"
--- OUTSIDE RECORDS SUMMARY | ~2019-12-02 | XMS | Encounter Summary ---
Demographics + + + | Address | [address] | | | [place] [address] | + + + | Home Phone [...] [place], [place] | | | | | [address] | | + + + + + | Ellie Vang | ECON | Unknown | | + + + + + Care Team Providers + +------+ + | Care Cancer Spec Name | Role | Phone | + [...] 2017 | | [address] | [address] | Y [facility]STRIC [facility]PASS | | | | [facility] | [place], [place] | | | | | Hospital Admitting | [address] | | | | | Desk Located on the | [phone] | | | | | 9th floor | | | | | | [place], [place] | | | | | | [address] | | | +--------+---------+ + + + [...] Gavin ACNP - 03/03/2018 9:49 AM PDT [facility] RED SURGERY INPATIENT DISCHARGE SUMMARY Author: KAIN [...] to a bariatric full liquid diets. Our [facility] dietitian was consulted and they [...] at minimum. 5. Follow with PCP for Track Repair Worker within 1 - 2 weeks of discharge [...] mg by mouth two times daily. CALCIUM CRB&IYZ-R2-BUU63-GENIS ORAL Take 2 tablets by mouth two [...] yogurt or kefir. Zaria's Yogurt or Kefir, Masherfield Yogurt, and MatsSoftn i American Yogurt are common brands with [...] are available over the counter at most [facility] stores. Nausea/Vomiting/Difficulty Swallowing Nausea/Vomiting/Difficulty swallowing: Could be [...] hours per your instructions. Some medications, like Velarde, have Tylenol in it. Make sure you [...] (PCP) as this clinic does not provide [facility]. When to [...] hours by calling the surgery office at [phone]. - After hours, weekends and holidays, you may call the hospital metal pickling equipment operator at [phone] an d have the government services professional Red Surgery Team paged. OTHER DISCHARGE ORDERS [...] at minimum. 5. Follow with PCP for Track Repair Worker within 1 - 2 weeks of discharge [...] Department Dept Phone Center 03/10/2018 1:30 PM [facility] at [facility] 6th Floor [phone] FO OD AND NUT 03/10/2018 3:05 PM Ronna Clarke Digestive [facility] at [facility] 6th Floor [phone] [facility] 04/01/2018 10:30 AM [facility] at [facility] 6th Floor [phone] FO OD AND NUT 04/01/2018 11:00 AM Ion Castanon Digestive [facility] at [facility] 6th Floor [phone] [facility] 05/27/2018 2:30 PM [facility] at [facility] 6th Floor [phone] FO OD AND NUT 05/27/2018 3:05 PM [facility] 6th Floor [phone] [facility] 05/27/2018 4:30 PM [facility] at [facility] 15th Floor [phone] Comprehensiv 06/04/2018 10:35 AM Randell Franks Cardiology Preventive at [facility] [phone] Cardiology Discharging Physician: KAIN Agee Attending Physician: Ion Castanon MD [facility] Red Surgery Pager# [phone] 9:50 AM 03/03/2018 documented in this enco [...] | | 0 | | | | CRB&CRS-S7-RDP05-GEN | mouth two times | | | [...] date of discharge 03/03/18 PARTHA Rajwinder MS3 [facility] [employer] Demarcus Menon MD [...] for care ride home (pt lives in [place]) Demarcus Alas M.D. General Surgery Resident PGY-1 Pager: [phone] Ion Ferrari MD - 10:00 AM PDTI [...] Flannery | | | | | | [place], [place] | | | | | | [address] | | | | | | [phone] | | | | | | | [...] AMES | [address] | [place], [place] | | | [facility] | [address] | [address] | | | TESTS | | | [...] MARQUAM | [address] | [place] | | | [facility] JAKY | [address] | [address] | | | TESTS | | | [...] - MARQUAM | [address] | [place] | | | [facility] | [address] | [address] | | | TESTS | | | [...] AMES | [address] | [place] | | | [facility] | [address] | [address] | | | TESTS | | | [...] MARQUAM | [address] | [place], [place] | | | [facility] JAKY | [address] | [address] | | | TESTS | | | [...] MARQUAM | [address] | [place] | | | [facility] | [address] | [address] | | | TESTS | | | [...] AMES | [address] | [place] | | | [facility] | [address] | [address] | | | TESTS | | | [...] MARQUAM | [address] | [place], [place] | | | [facility] | [address] | [address] | | | TESTS | | | [...] MARQUAM | [address] | [place] | | | [facility] | [address] | [address] | | | TESTS | | | [...] AMES | [address] | [place] | | | [facility] | [address] | [address] | | | TESTS | | | [...] MARQUAM | [address] | [place], [place] | | | [facility] | [address] | [address] | | | TESTS | | | [...] MARQUAM | [address] | [place] | | | [facility] | [address] | [address] | | | TESTS | | | [...] AMES | [address] | [place] | | | [facility] [facility] | [address] | [address] | | | TESTS | | | [...] MARQUAM | [address] | [place], [place] | | | [facility] | [address] | [address] | | | TESTS | | | [...] MARQUAM | [address] | [place], [place] | | | [facility] | [facility] | [address] | | | TESTS | | | [...] AMES | [address] | [place] | | | [facility] | [facility] | [address] | | | TESTS | | | [...] MARQUAM | [address] | [place] | | | [facility] | [address] | [address] | | | TESTS | | | [...] KWAKU | [address] | [place], [place] | | | [facility] | [address] | [address] | | | TESTS | | | [...] (H) | 70 - 99 mg/dL | [facility] [...] AMES | [address] | [place] | | | [facility] | [address] | [address] | | | TESTS | | | [...] MARQUAM | [address] | [place] | | | [facility] | [address] | [address] | | | TESTS | | | [...] - MARQUAM | [address] | [place] | | | [facility] | [address] | [address] | | | TESTS | | | [...] + + + | NKECHI AMES | [address] | [place] | | | [facility] [facility] | [address] | [address] | | | TESTS | | | [...] MARQUAM | [address] | [place], [place] | | | [facility] | [address] | [address] | | | TESTS | | | [...] MARPATAM | [address] | [place], [place] | | | [facility] | [address] | [address] | | | TESTS | | | [...] AMES | [address] | [place] | | | [facility] | [address] | [address] | | | TESTS | | | [...] MARQUAM | [address] | [place] | | | [facility] | [address] | [address] | | | TESTS | | | | + + + + + EGD (ESOPHAGOGASTRODUODENOSCOPY) (03/01/2018 11:21 AM PDT) + + + | Narrative | Performed At | + + + | Ion Castanon MD 03/01/2018 12:25 PM Date of Procedure: | | | 03/01/18 Primary Surgeon: Ion Castanon MD Co Surgeon or | | | registrar assistant: Eldon Gonzalez MD, Chief Resident Alexx [...] The jejunum was divided with 60 mm Calais stapler with white | | | load [...] created in each limb and a 60mm Calais stapler | | | with white load was fired to create a aooe-px-kytx | | | jejunojejunostomy. The anastamosis was confirmed to be widely | | | patent and hemostatic. The common enterotomy was closed by placing | | | 2 stay sutures along the enterotomy for retraction and firing an | | | Calais 60mm stapler with white load across the [...] | | | was entered. The 60mm Calais stapler with blue load was placed | [...] blue load of the 60mm stapler. The Calais was then fired | | | longitudinally towards the angle of His to create the gastric pouch, | | | leaving the gastrotomy from foreign body removal, on the pouch. | | | Dissection was performed retrogastric to connect posterior and | | | anterior dissection planes and ensure adequate fundus exclusion. | | | Additional fires of the Calais stapler were performed with blue | | [...] with | | | 5 mm clip test center administrator. A 25mm Orvil was passed transorally by [...] was closed with 60mm | | | Calais stapler with a white load. Medially and [...] was present | | | as my registrar assistant for the entire procedure, given the technically | | | challenging nature of this procedure. She assisted in all critical | | | steps of the procedure. Dr. Gonzalez was present for endoscopy at the | | | end of the procedure. Ion Castanon MD, FACS, [facility] | | | Bariatric Surgery | [...] MD Co Surgeon or | | | registrar assistant: Eldon Gonzalez MD, Chief Resident Alexx [...] The jejunum was divided with 60 mm Calais stapler with white | | | load [...] created in each limb and a 60mm Calais stapler | | | with white load was fired to create a doip-ez-jzng | | | jejunojejunostomy. The anastamosis was confirmed to be widely | | | patent and hemostatic. The common enterotomy was closed by placing | | | 2 stay sutures along the enterotomy for retraction and firing an | | | Calais 60mm stapler with white load across the [...] | | | was entered. The 60mm Calais stapler with blue load was placed | [...] blue load of the 60mm stapler. The Calais was then fired | | | longitudinally towards the angle of His to create the gastric pouch, | | | leaving the gastrotomy from foreign body removal, on the pouch. | | | Dissection was performed retrogastric to connect posterior and | | | anterior dissection planes and ensure adequate fundus exclusion. | | | Additional fires of the Calais stapler were performed with blue | | [...] with | | | 5 mm clip test center administrator. A 25mm Orvil was passed transorally by [...] was closed with 60mm | | | Calais stapler with a white load. Medially and [...] was present | | | as my registrar assistant for the entire procedure, given the technically | | | challenging nature of this procedure. She assisted in all critical | | | steps of the procedure. Dr. Gonzalez was present for endoscopy at the | | | end of the procedure. Ion Castanon MD, FACS, [facility] | | | Bariatric Surgery | [...] [place] | [address] | [place] | | | [facility] | [address] | [address] | | | TESTS | | | [...]
--- OUTSIDE RECORDS SUMMARY | ~2019-12-02 | XMS | Encounter Summary ---
Demographics + + + | Address | [address] | | | [place] [address] | + + + | Home Phone [...] + | Katalina Padilla | ECON | [address] | | | | | [place], [place] | | | | | [address] | | + + + + + | Ellie Vang | ECON | Unknown | | + + + + + Care Team Providers + +------+ + | Care Musical Performer Name | Role | Phone | + [...] floor | | | | | | [place], [place] | | | | | | [address] | | | +--------+ + + + [...] [place] | | | | | | [address] | | | | | | [phone] | | | | | | | | +--------+---------+ + + + documented as of this encounter Visit Diagnoses Not on filedocumented in this encounter"
--- OUTSIDE RECORDS SUMMARY | ~2019-12-02 | XMS | Encounter Summary ---
Demographics + + + | Address | [address] | | | [place] [address] | + + + | Home Phone [...] + | Katalina Padilla | ECON | [address] | | | | | [place], [place] | | | | | [address] | | + + + + + | Ellie Vang | ECON | Unknown | | + + + + + Care Team Providers + +------+ + | Care Laundry Aid Name | Role | Phone | + [...] | Center at [facility] [address] | ACNP [address] | | | | [address] | Ave [place], [place] | | | | | Mailcode: [place] | [address] | | | | | for Health and | | | | | | [facility] 2 | | | | | | [facility] [place] | | | | | | [address] | | | | | | | [...] [address] | | | | | | [place], [place] | | | | | | [address] | | | | | | [phone] | | | | | | | | +--------+---------+ + + + documented as of this encounter Visit Diagnoses Not on filedocumented in this encounter"
--- OUTSIDE RECORDS SUMMARY | ~2019-12-02 | XMS | Encounter Summary ---
Demographics + + + | Address | [address] | | | [place] [address] | + + + | Home Phone [...] [place], [place] | | | | | [address] | | + + + + + | Ellie Vang | ECON | Unknown | | + + + + + Care Team Providers + +------+ + | Care Pegger Dobby Looms Name | Role | Phone | + [...] [address] | | | | | [facility] | [facility] | | | | | [address] | [place], [place] | | | | | Mail Code: OC8PM | [address] | | | | | [facility] | [phone] | | | | | and Healing, | | | | | | Building [address] | | | | | | [place], [place] | | | | | | [address] | | | | | | [phone] | | | +--------+ + + + [...] [address]ann[address] | | | | | | [place], [place] | | | | | | [address] | | | | | | [phone] | | | | | | | | +--------+---------+ + + + documented as of this encounter Visit Diagnoses Not on filedocumented in this encounter"
--- OUTSIDE RECORDS SUMMARY | ~2019-12-02 | XMS | Encounter Summary ---
Demographics + + + | Address | [address] | | | [place] [address] | + + + | Home Phone [...] + | Katalina Padilla | ECON | [address] | | | | | [place], [place] | | | | | [address] | | + + + + + | Ellie Vang | ECON | Unknown | | + + + + + Care Team Providers + +------+ + | Care Infant Nanny Name | Role | Phone | [...] | | gastric | [address] | [place] | | | | | bypass | [place], [place] | Pavilion, [address] | | | | | Ventral | [address] | floor | | | | | hernia | Phone: | [place], [place] | | | | | without | [phone] | [address] | | | | | obstruction | Fax: | Phone: | | | | | or gangrene | [phone] | [phone] | | | | | Mixed | | Fax: | | | | | hyperlipidem | | [phone] | | | | | ia Diabetes [...] | | | | | | | [place] UPPER GI | | | | | | | ENDOSCOPY,BI | | | | | | | [place] | | | | | | | [...] | | | | Mailcode: Center | [address] | Ventral hernia | | | | for Health and | [phone] | without obstruction | | | | Healing, Building [address] | | or gangrene; Mixed | | | | [place], [place] | | hyperlipidemia; | | | | [address] | | 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[phone] | | type 2 without | | [...] to POC and will call or send VeriShow message if any issues. documented in this [...] tongue once daily., Disp: , Rfl: CALCIUM CRB&FZO-C4-QOE49-GENIS ORAL, Take 2 tablets by mouth two [...] index of 70 and over in adult ([facility]) Myalgia and myositis Nausea Neck pain Numbness Osteoarthritis of knee Palpitations Pneumonia Shortness of breath Staphylococcal infection Stroke ([facility]) TIA (transient ischemic attack) due to Bromocriptine Tinea corporis UTI (urinary tract infection) Past Surgical History Procedure Laterality Date Tonsillectomy and adenoidectomy Appendectomy, open 2010 Umbilical hernia repair 2010 Treatment of ankle fracture with screws remaining Incision and drainage of wound abscess x2 midline transverse wound s/p open appendectomy 2010 Ventral hernia repair 10/2012 Dr. Andie Brian Incisional hernia repair 03/01/2015 [facility]/ Dr. Cantu. Primary fascial closure and scar excision Lap gastric byp, and nilesh-en-y gastroenterostomy w/ nilesh limb 150 cm or less 8 [facility] Social History Social History Marital status: Single Spouse name: N/A Number of children: 1 Years of education: N/A Occupational History disabled None Social History Main Topics Smoking status: Former Smoker Smokeless tobacco: Never Used Alcohol use No Drug use: No Sexual activity: Not on file Social History Narrative Updated 11/09/15 She lives in [place] with her mother and her sister (also her caregiver) lives in an apa rtment/duplex below. She has 2 grandchildren (age 4 and 7) who live with her daughter and son-in-law Her boyfriend lives in [place] HFpEF, DM2, HTN, Sleep Apnea (unable to tolerate CPAP), Hypothyroidism, Severe Obesity (Jasmyn menjivra max weight 495 lbs) Last seen by [...] program here and refer her to our survival specialist who also has expertise in physical [...] after this visit. Ronna Clarke DNP ACNP TERRAZZO WORKER HELPER Bariatric Surgery Nurse Practitioner [facility] | [id number] | [place], [place] | [address] | documented in this e ncounter Plan of Treatment +--------+---------+ + + + | Date | Type | Specialty | Care Team | Description | +--------+---------+ + + + | 03/15/ | Office | Cardiology | Randell Franks, | | | 2019 | Visit | | MD [address] | | | | | | [place], [place] | | | | | | [address] | | | | | | [phone] | | | | | | | | +--------+---------+ + + + documented as of this encounter Results X-RAY MOHAMUDLuba Chang RAVINDER (06/07/2018 9:47 AM PST) + + | Specimen | + + | | + + + + + | Narrative | Performed At | + + + | EXAM: Esophagram with director of people radiograph HISTORY: RYGB 03/01/2018, | [facility] | | vomiting/pain ever since COMPARISON: 04/27/2018 CT TECHNIQUE: | RADIOLOGY VOICE | | [employer] radiograph was performed. Single contrast exam of the esophagus, | RECOGNITION 2 | | gastric pouch, and gastrojejunostomy in upright positioning. | | | Radiation dose reduction technique was maximized where appropriate | | | using pulsed fluoroscopy and fluoro-store images. Fluoro Time 57 | | | second(s) FINDINGS: [employer] Agent shows stone in the upper pole of [...] Note | + + | Service Account, [employer] Res In Interface - 06/07/2018 11:18 AM PST EXAM: Esophagram | | with director of people radiograph HISTORY: RYGB 03/01/2018, vomiting/pain ever since COMPARISON: | | 04/27/2018 CT TECHNIQUE: [employer] Agent radiograph was performed. Single contrast exam of the | | esophagus, gastric pouch, and gastrojejunostomy in upright positioning. Radiation dose | | reduction technique was maximized where appropriate using pulsed fluoroscopy and | | fluoro-store images. Fluoro Time 57 second(s) FINDINGS:[employer] Agent shows stone in the upper | | [...] FOR INCURABLES | [address] | [place] [address] | | | SERVICES, CORE | CLARENCE [...] | [facility] | | considered for monitoring emt intermediate glycemic control in patients with: | [...] [facility] | [address] | [place] [address] | | | SERVICES, SPECIAL | PARK [...] B: | | | | | | iSECUREtrac/CSPerformed | | | | | | by [employer],[address] | | | | | | [address], [facility],[place] | | | | | | [address] | | | | | | [phone].[employer] | | | | | | Ismael [...] [facility] | [address] | [place], [place] | | | [facility] | | [address] | | + + + + + [...] the MDRD equation recommended by the | [facility] | | National Kidney Disease Education [...] [facility] | [address] | [place] [address] | | | SERVICES, CORE | PARK [...] [facility] | [address] | [place] [address] | | | SERVICES, CORE | PARK [...] | [facility] | [address] | [place] [address] | | | SERVICES, CORE | PARK [...] FOR INCURABLES | [address] | [place] [address] | | | SERVICES, CORE | PARK [...] + + | [facility] | [address] [facility] | [place] [address] | | | CLAIRE, LYDIA | PARK [...] [facility] | [address] | [place] [address] | | | CLAIRE, CORE | CLARENCE [...]
--- OUTSIDE RECORDS SUMMARY | ~2019-12-02 | XMS | Encounter Summary ---
Demographics + + + | Address | [address] | | | [place] [address] | + + + | Home Phone [...] [place], [place] | | | | | [address] | | + + + + + | Ellie Vang | ECON | Unknown | | + + + + + Care Team Providers + +------+ + | Care Area Field Person Name | Role | Phone | [...] | | | | and over, | [place], [place] | [facility] | | | | | adult (HCC) | [address] | for Health | | | | | Severe | Phone: | and Healing, | | | | | muscle | | Building [address], | | | | | deconditioni | Fax: | [address] | | | | | ng | [phone] | [place], [place] | | | | | Procedures | | [address] | | | | | PHYSICAL | | Phone: | | | | | THERAPY | | [phone] | | | | | REFERRAL | | Fax: | | | | | | | [phone] | +--------+--------+ + + + + Encounter Details +--------+ + + + + | Date | Type | Department | Care Team | Description | +--------+ + + + + | 02/02/ | Auger Machine Offbearer | Digestive Health | Shereen Georges, | Morbid obesity with | | 2017 | | Center at [facility] [address] | ACNP [address] | BMI of 70 and over, | | | | [address] | [address] [facility] [place] | adult (HCC) (Primary | | | | Mailcode: Center | [address] | Dx); Severe muscle | | | | for Health and | | deconditioning | | | | Healing, [address] | | | | | | [place], [place] | | | | | | [address] | | | | | | | [...] | | 2019 | Visit | | [address] | | | | | | [place], [place] | | | | | | [address] | | | | | | [phone] | | | | | | | [...]
--- OUTSIDE RECORDS SUMMARY | ~2019-12-02 | XMS | Encounter Summary ---
Demographics + + + | Address | [address] | | | [place] [address] | + + + | Home Phone [...] [place], [place] | | | | | [address] | | + + + + + | Ellie Vang | ECON | Unknown | | + + + + + Care Team Providers + +------+ + | Care Valve Inserter Name | Role | Phone | + [...] 2012 | | Center at [facility] [address] | MD [address] | | | | | [address] | [facility] | | | | | Mailcode: Center | [place], [place] | | | | | for Health and | [address] | | | | | [facility] [address] | [phone] | | | | | [place], [place] | | | | | | [address] | | | | | | [phone] | | | +--------+ + + + [...] [place] | | | | | | [address] | | | | | | [phone] | | | | | | | | +--------+---------+ + + + documented as of this encounter Visit Diagnoses Not on filedocumented in this encounter"
--- OUTSIDE RECORDS SUMMARY | ~2019-12-02 | XMS | Encounter Summary ---
Demographics + + + | Address | [address] | | | [place] [address] | + + + | Home Phone [...] [place], [place] | | | | | [address] | | + + + + + | Ellie Vang | ECON | Unknown | | + + + + + Care Team Providers + +------+ + | Care Sex Worker Or Escort Name | Role | Phone | + +------+ + | Kenyatta Cardenas MD | PCP | | + +------+ + Encounter Details +--------+ + + + + | Date | Type | Department | Care Team | Description | +--------+ + + + + | 12/01/ | Documentati | Digestive Health | Clinic, Surgery | | | 2016 | on | Center at [place] [address] | | | | | | [address] | | | | | | Mailcode: [place] | | | | | | for Health and | | | | | | [facility] [address] | | | | | | [place], [place] | | | | | | [address] | | | | | | [phone] | | | +--------+ + + + [...] [address] | | | | | | [place], [place] | | | | | | [address] | | | | | | [phone] | | | | | | | | +--------+---------+ + + + documented as of this encounter Visit Diagnoses Not on filedocumented in this encounter"
--- OUTSIDE RECORDS SUMMARY | ~2019-12-02 | XMS | Encounter Summary ---
Demographics + + + | Address | [address] | | | [place] [address] | + + + | Home Phone [...] [place], [place] | | | | | [address] | | + + + + + | Ellie Vang | ECON | Unknown | | + + + + + Care Team Providers + +------+ + | Care Director Microbiology Name | Role | Phone | + [...] | | | | | | [facility] | | | | | | [place], [place] | | | | | | [address] | | | | | | [phone] | | | +--------+ + + + [...] [address] | | | | | | [place], [place] | | | | | | [address] | | | | | | [phone] | | | | | | | [...] | | | | | | | [place], [place] | | | | | | [address] | | | | | | | [...] | | | | artery. A 5.5 Icelandic | | | | | | Ozzy [...] | | + +---------+ + + | [facility] | | | | | RADIOLOGY | | | | + +---------+ + + documented in this encounter Visit Diagnoses Not on filedocumented in this encounter
--- OUTSIDE RECORDS SUMMARY | ~2019-12-02 | XMS | Encounter Summary ---
Demographics + + + | Address | [address] | | | [place] [address] | + + + | Home Phone [...] + | Katalina Padilla | ECON | [address] | | | | | [place], [place] | | | | | [address] | | + + + + + | Ellie Vang | ECON | Unknown | | + + + + + Care Team Providers + +------+ + | Care Wood Scaler Name | Role | Phone | + +------+ + | Kenyatta Cardenas MD | PCP | | + +------+ + Encounter Details +--------+ + + + + | Date | Type | Department | Care Team | Description | +--------+ + + + + | 03/18/ | Transcribe | [facility] | Transcribe | | | 2019 | Orders | [facility] [address] | Encounter, Provider, | | | | | [address] Mailcode: | [address] | | | | | [address] [facility] | [place] [address] | | | | | Health and Healing, | | | | | | [address] | | | | | | [place], [place] | | | | | | [address] | | | | | | [phone] | | | +--------+ + + + [...] [address] | | | | | | [place], [place] | | | | | | [address] | | | | | | [phone] | | | | | | | | +--------+---------+ + + + documented as of this encounter Results EGD (04/07/2019 10:53 AM PDT) + + | Specimen | + + | | + + + + + | Narrative | Performed At | + + + | MRN: | [facility] | | [id number] Date: 04/07/2019Patient Name: Elzbieta Curtis #: | ENDOSCOPY | | [id number] of : 1975CSN: [id number] Type: | | | AmbulatoryRoom: Endo 5Procedure: Upper GI | | | endoscopyIndications: Generalized abdominal pain, Nausea | | | with vomitingProviders: TAL LUND MD | | | (Doctor), BERNARDO BERNARD RN (Nurse), | | | GENECRE GnuBIO (Ball Warper Tender)Referring MD: SYLVIA Kilpatrick | | | RASTA [...] | | | The [employer] [id number] Endoscope #[id number] | | | was introduced through the [...] + | Performing | Address | City[facility] | Phone Number | | Organization [...]
--- OUTSIDE RECORDS SUMMARY | ~2019-12-02 | XMS | Encounter Summary ---
Demographics + + + | Address | [address] | | | [place] [address] | + + + | Home Phone [...] + | Katalina Padilla | ECON | [address] | | | | | [place], [place] | | | | | [address] | | + + + + + | Ellie Vang | ECON | Unknown | | + + + + + Care Team Providers + +------+ + | Care Motor Pool Driver Name | Role | Phone | + +------+ + | Fadi Goodrich DO | PCP | | + +------+ + Encounter Details +--------+ + + + + | Date | Type | Department | Care Team | Description | +--------+ + + + + | 10/27/ | Telephone | [facility] | Leslie Mistry, | | | 2017 | | [address] | PhD [address] [facility] | | | | | Mailcode: CH15P | [address] | | | | | [facility] | [place], [place] | | | | | and [place], | [address] | | | | | | [phone] | | | | | Floor [place], [place] | | | | | | [address] | | | | | | [phone] | | | +--------+ + + + [...] [address] | | | | | | [place], [place] | | | | | | [address] | | | | | | [phone] | | | | | | | | +--------+---------+ + + + documented as of this encounter Visit Diagnoses Not on filedocumented in this encounter"
--- OUTSIDE RECORDS SUMMARY | ~2019-12-02 | XMS | Encounter Summary ---
Demographics + + + | Address | [address] | | | [place] [address] | + + + | Home Phone [...] [place], [place] | | | | | [address] | | + + + + + | Ellie Vang | ECON | Unknown | | + + + + + Care Team Providers + +------+ + | Care Neon Tube Pumper Name | Role | Phone | + [...] 11/06/ | Surgery | 6A Intra Op 3181 | Andie Brian MD | repair incarcerated | | 2012 | | [address] [facility] | [address] [facility] | ventral hernia; | | | | Rd [facility] | [facility] [address] | possible bowel | | | | Hospital Admitting | [place], [place] | resection; | | | | Desk Located on the | [address] | | | | | 9th floor | [phone] | | | | | [place], [place] | | | | | | [address] | | | +--------+---------+ + + + [...] Author: AMINTA WILSON MD Attending Physician: Andie Biran MD PCP: Fadi Goodrich DO Admission Date: 11/06/2012 Discharge Date: 12 Nov 2012 Diagnoses Patient Active Problem List: Hernia Ms. Romero is a 37y/o female with history of an open appendectomy in 2010 an umbilical herni a repair. History of staph wound infection requiring incision and drainage and recurrent yuriy tral hernia. She was transferred from [place] for surgical evaluation of possible incarcer ated [...] Cipro. POD 5 she was discharged ho nm, tolerating a diabetic diet. Having bowel function. [...] yuriy tral hernia. She was transferred from [place] for surgical evaluation of possible incarcer ated [...] Cipro. POD 5 she was discharged ho nm, tolerating a diabetic diet. Having bowel function. [...] keeping you from eating and drinking, Call [phone]. It is important to stay hydrated! If [...] taking narcotic that contain Tylenol (acetaminophen) Example: [place], Lortab, Vicodin, hydrocodone/APAP, Percocet, Tylenol #3 PAIN MEDICATIONS are ONLY REFILLED during CLINIC APPOINTMENTS. Please call [phone] to schedule an appointment. Your Follow-Up Plan Follow up with ROBIN MEJIA in 2 weeks. Contact information: [address] [facility] [address] Vitals on discharge: Ht 154.9 cm (5' [...] [facility] [place] DEPARTMENT OF SURGERY EMERGENCY GENERAL SURGERY [...] without erythema and no infecti on noted. Willard intact : good urine output and Patient [...] clinic [place] [address] pager number [place] [phone] [facility] [address] Aminta Goodwin Md - 11/11/2012 7:[address] [facility] DEPARTMENT OF SURGERY EMERGENCY GENERAL SURGERY Division of Trauma and Critical Care Attending Physician: Andie Brian MD Progress Note Note Date: 11/11/2012 Admission Date: 11/06/2012 DYLAN ROMERO, [id number] Hospital Day #5 INTERVAL EVENTS none acute [...] mg, Rectal, DAILY PRN, Aminta Wilson MD qwhvoexnuu-vfbexaxotcmts-bvsjsmyp (aka FIORICET) 50-325-40 mg 1 Tab, 1 [...] Jayne Ponce MD, 1 mg at 11/10/12801 eajnfsmsqg-iamnkflxzdrcd-fjrmezpu (aka FIORICET) 50-325-40 mg 1 Tab, 1 [...] in preservative free NaCl 0.9% 50 mL PRESENTATION SPECIALIST infusion, , Intravenous, KIESHA NUOUS, Aracely Flores [...] diet -add bowel regimen Acute pain -HM PRESENTATION SPECIALIST, tylenol -convert to oral pain medication once [...] Fluids: LR 125ml/hr Feeding: NPO Analgesia: Dilaudid PRESENTATION SPECIALIST Sedation: not indicated Thromboprophylaxis: enoxaparin Head of [...] Ponce MD, 1 mg at 11/09/12 0855 aycfywdehi-slgrxpucgqnyg-caheqcxo (aka FIORICET) 50-325-40 mg 1 Tab, 1 [...] in preservative free NaCl 0.9% 50 mL PRESENTATION SPECIALIST infusion, , Intravenous, KIESHA NUOUS, Aracely Flores [...] nystatin (aka MYCOSTATIN) powder, , Topical, BID, aDnny Lagos MD olanzapine (aka ZYPREXA) tablet 30 [...] drainage <30ml for 24hrs Acute pain -HM PRESENTATION SPECIALIST, tylenol Diabetes: -insulin gtt not started due [...] Fluids: LR 125ml/hr Feeding: NPO Analgesia: Dilaudid PRESENTATION SPECIALIST Sedation: not indicated Thromboprophylaxis: enoxaparin Head of bed: > 30 Ulcer prophylaxis: pepcid Glycemic control: adequate Activity/PT/OT: Ongoing Yogurt: ABX on Probiotics:yes AMINTA WILSON MD General Surgery, R1 aleb Walker S, N P - 11/08/2012 8:49 AM PDT [facility] DEPARTMENT OF SURGERY EMERGENCY GENERAL SURGERY Division of Trauma and Critical Care Attending Physician: Andie Brian MD Progress Note Note Date: 11/08/2012 Admission Date: 11/06/2012 DYLAN ROMERO, [id number] Hospital Day #2 INTERVAL EVENTS NO SUBJECTIVE Pain well controlled; has headache attributed to dilaudid PRESENTATION SPECIALIST Tylenol did not help. Flatus: YES Tolerating [...] trials today. -DC ruiz Acute pain -HM PRESENTATION SPECIALIST, tylenol Diabetes: -insulin gtt not started due [...] Fluids: LR 125ml/hr Feeding: NPO Analgesia: Dilaudid PRESENTATION SPECIALIST Sedation: not indicated Thromboprophylaxis: enoxaparin Head of bed: > 30 Ulcer prophylaxis: pepcid Glycemic control: adequate Activity/PT/OT: Ongoing Yogurt: ABX on Probiotics: No KALEB WALKER NP [facility] [address] [place] [facility] elvin Stephens MD - 11/07/2012 9:51 PM [...] 7.33* PCO2 49* PO2 113* HCO3 25 ASZZX2NVC 26 C4UIPOSO 98.3* E7SYJUPUV -- FIO2 60 ABGEXCESS -0.9 Assessment, Medical Decision Making and Plan 1. Incarcerated hernia, now s/p repair and panniculectomy -Binder, pain control, minimize nausea and coughing PRN. -NG clamping trials today. 2. Acute pain -HM PRESENTATION SPECIALIST, tylenol 3. Diabetes: -insulin gtt 4. Morbid [...] Dione Grimes MD R-2, General Surgery Pager: [phone] [facility] [place] Department of Surgery Trauma ICU Team Pager (24hrs/day): [phone] I was present with the resident during the history and exam. I discussed the case with the resident and agree with the findings and plan as documented in the resident s note. KELVIN STEPHENS MD [facility] [address] [facility] [place] [address] [id number] Onur Graves MD - 11/07/2012 2:37 AM [...] in preservative free NaCl 0.9% 50 mL PRESENTATION SPECIALIST infusion Intravenous CON TINUOUS Aracely Flores, DO [...] POD#1 s/p primary repair. 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 correctional supply supervisor and prn tylenol, continue prozac and zyprexa [...] F: probable remain NPO today A: dilaudid correctional supply supervisor, prn tylenol S: prn benzos as she is at home T: will start prophylactic lovenox today H: HOB >30 degrees U: pepcid G: insulin gtt ONUR ALLEN MD, PGY3 [place] [address] [facility] [address] 5c[address]/uhs8t [place] [address] Onelia Shrestha MD - 11/06/2012 8:41 AM PDT [facility] DEPARTMENT OF SURGERY Division of Trauma and Critical Care Emergency General Surgery / Acute Care Surgery Attending Physician: Andie Brian MD Note Date: 11/06/2012 Admission Date: 11/06/2012 DYLAN ROMERO, [id number] Hospital Day #0 OVERNIGHT EVENTS: anxious SUBJECTIVE: [...] wwp LABS: reviewed and are available in [facility] (if new data) IMAGING: VASCULAR: IMPRESSION: [...] Flannery | | | | | | [place], [place] | | | | | | [address] | | | | | | [phone] | | | | | | | [...] + +--------+ + + + | LEV ERIC BUENO POC | Routin | 11/06/2012 | Hernia [...] Mae | | | | | | [place] | | | | + + + + + + + + | Specimen | + + | | + + + +---------+ + + | Performing | Address | City/State/Zipcode | Phone Number | | Organization | | | | + +---------+ + + | [facility] DEPARTMENT OF | | | [...] (H) | 60 - 99 mg/dL | [facility] - | | | GLUCOSE, [...] | [facility] | [address] | [place], [place] | | | [place]ARE | [address] | [address] | | | TESTS | | | [...] + + + | [facility] | [address] | [place], [place] | | | [facility] | [address] | [address] | | | TESTS | | | [...] + | [facility] | [address] [facility] | [place] [address] | | | SERVICES, CORE | CLARENCE [...] the MDRD equation recommended by the | [facility] | | National Kidney Disease Education Program. [...] | + + + + + | [facility] | [address] | [place] [address] | | | SERVICES, CORE | PARK [...] | + + + + + | [facility] | [address] [facility] | [place] [address] | | | SERVICES, CORE | PARK [...] (H) | 60 - 99 mg/dL | [facility] - | | | GLUCOSE, [...] [facility] | [address] | [place], [place] | | | JUSTIEN DAWN OF J[facility] | [facility] | [address] | | | TESTS | | | [...] [facility] | [address] | [place], [place] | | | [facility] OF CARE | [address] | [address] | | | TESTS | | | [...] (H) | 60 - 99 mg/dL | [facility] - | | | GLUCOSE, [...] [facility] | [address] | [place], [place] | | | JUSTINE DAWN OF [place] | [address] | [address] | | | TESTS | | | [...] [facility] | [address] | [place], [place] | | | JUST[facility]WN OF J[place] | [facility] | [address] | | | TESTS | | | | + + + + + CAPILLARY BLOOD GLUCOSE (NO CHG) POC (11/11/2012 8:17 AM PDT) + +---------+ [...] | [facility] | [address] | [place], [place] | | | [place] [facility] | [facility] | [address] | | | TESTS | | | [...] [facility] | [address] | [place] [address] | | | SERVICES, CORE | PARK [...] + | [facility] | [address] | [place] [address] | | | SERVICES, CORE | CLARENCE [...] [facility] | [address] | [place] [address] | | | LYDIA RANGEL | CLARENCE [...] [facility] | [address] | [place], [place] | | | [place]ARE | [address] | [address] | | | TESTS | | | [...] [facility] | [address] | [place], [place] | | | [place]ARE | [address] | [address] | | | TESTS | | | [...] [facility] | [address] | [place], [place] | | | JUST[place] DAWN OF [place] | [address] | [address] | | | TESTS | | | [...] [facility] | [address] | [place], [place] | | | JUST[facility] OF CARE | [facility] | [address] | | | TESTS | | | | + + + + + CAPILLARY BLOOD GLUCOSE (NO CHG), POC (11/10/2012 5:56 AM PDT) + +-------+ + + + | Component | Value | Ref Range | Performed | Pathologist | | | | | At | Signature | + +-------+ + + + | BLOOD | 90 | 60 - 99 mg/dL | [facility] [...] [facility] | [address] | [place], [place] | | | JUST[place] OF [place] | [facility] | [address] | | | TESTS | | | [...] + | [facility] | [address] [facility] | [place] [address] | | | SERVICES, CORE | CLARENCE [...] the MDRD equation recommended by the | [facility] | | National Kidney Disease [...] | + + + + + | [facility] | [address] | [place] [address] | | | LYDIA RANGEL | CLARENCE [...] | + + + + + | [facility] | [address] | [place] [address] | | | SERVICES, CORE | CLARENCE [...] [facility] | [address] | [place], [place] | | | JUST[facility]WN OF [place] | [address] | [address] | | | TESTS | | | [...] [facility] | [address] | [place] | | | JUST[place] DAWN OF [place] | [address] | [address] | | | TESTS | | | [...] [facility] | [address] | [place], [place] | | | JUSTINE DAWN OF CARE | [address] | [address] | | | TESTS | | | [...] | | | Final CULTURE | | [place] | | | | RESULT:>100,000 cfu/ml | [...] + | [facility] | [address] | [place] [address] | | | [place] | | | [...] | [facility] | [address] [facility] | [place] [address] | | | SERVICES, CORE | PARK [...] [facility] | [address] | [place] [address] | | | CLAIRE, LYDIA | CLARENCE [...] [facility] | [address] | [place], [place] | | | [place] [facility] | [address] | [address] | | | TESTS | | | [...] | [facility] | [address] | [place] [address] | | | SERVICES, CORE | CLARENCE [...] | [facility] | [address] | [place] [address] | | | SERVICES, CORE | CLARENCE [...] [facility] | [address] | [place] [address] | | | SERVICES, CORE | PARK [...] [facility] | [address] | [place], [place] | | | JUST[facility]WN OF JAKY | [facility] | [address] | | | TESTS | | | [...] [facility] | [address] | [place], [place] | | | JUST[facility]WN OF CARE | [address] | [address] | | | TESTS | | | [...] [facility] | [address] | [place], [place] | | | JUST[facility]WN OF CARE | [address] | [address] | | | TESTS | | | [...] [facility] | [address] | [place] [address] | | | SERVICES, CORE | PARK [...] [facility] | [address] | [place] [address] | | | SERVICES, CORE | PARK [...] + | [facility] | [address] | [place] [address] | | | SERVICES, CORE | CLARENCE [...] [facility] | [address] | [place], [place] | | | [place] [facility] CARE | [address] | [address] | | | TESTS | | | [...] [facility] | [address] | [place], [place] | | | JUST[facility]WN OF CARE | [address] | [address] | | | TESTS | | | [...] [facility] | [address] | [place], [place] | | | JUSTINE DAWN OF JAKY | [address] | [address] | | | TESTS | | | [...] | + + + + + | [facility] | [address] | [place] [address] | | | SERVICES, CORE | PARK [...] + + | [facility] | [address] | [place] [address] | | | SERVICES, CORE | CLARENCE [...] | + + + + + | [email or web address] | [address] | [place] [address] | | | SERVICES, CORE | [address] | | | + + + + + X-RAY PORTABLE CHEST 1 VIEW (11/06/2012 4:46 PM PDT) + + + + + + | Component | Value | Ref Range | Performed | Pathologist | | | | | At | Signature | + + + + + + | X-RAY | STUDY: FL CHEST 1 VIEW | | | | | PORTABLE | 11/06/12 16:46:00 | | | | | CHEST 1 | INDICATION: Right upper | | | | | VIEW | lobe opacity. | | | | | | COMPARISON: Earlier same | | | | | | day a STUDY: FL CHEST 1 | | | | | [...] + + + | X-RAY | STUDY: [place] CHEST 1 VIEW | | | | [...] | | | ANA DE LA FUENTE, Analisa | | | | | MDAuthor: ANA [...] + | [facility] | [address] | [place] [address] | | | LYDIA RANGEL | CLARENCE [...] the MDRD equation recommended by the | [facility] | | National Kidney Disease [...] [facility] | [address] | [place] [address] | | | SERVICES, CORE | CLARENCE [...] | + + + + + | [facility] | [address] | [place] [address] | | | SERVICES, CORE | CLARENCE [...] (H) | 60 - 99 mg/dL | [facility] - | | | GLUCOSE, [...] [facility] | [address] | [place], [place] | | | JUST[place]WN OF [place] | [address] | [address] | | | TESTS | | | [...] | | OBIN, POC | | | [facility] | | [...] + + + + + + | ELV | 1.17 | 1.14 - 1.32 | [...] [facility] | [address] | [place], [place] | | | [place] [facility] CARE | [address] | [address] | | | TESTS | | | [...] [facility] | [address] | [place], [place] | | | [place] [facility] OF CARE | [address] | [address] | | | TESTS | | | | + + + + + SODIUM (ART), POC NOAM (11/06/2012 11:08 AM PDT) [...] [facility] | [address] | [place], [place] | | | JUST[facility]WN OF CARE | [address] | [address] | | | TESTS | | | | + + + + + POTASSIUM (ART) POC SOR (11/06/2012 11:08 AM PDT) [...] [facility] | [address] | [place], [place] | | | [place]ARE | [address] | [address] | | | TESTS | | | [...] [facility] | [address] | [place], [place] | | | [facility] CARE | [address] | [address] | | | TESTS | | | [...] | | | POC | | | [facility] | | | [...] [facility] | [address] | [place], [place] | | | [facility] CARE | [address] | [address] | | | TESTS | | | [...] [facility] | [address] | [place], [place] | | | [place] [facility] CARE | [address] | [address] | | | TESTS | | | [...] + + | [facility] | [address] | [place], [place] | | | [facility] OF CARE | [address] | [address] | | | TESTS | | | [...] [facility] | [address] | [place], [place] | | | [place] CARE | [address] | [address] | | | TESTS | | | [...] [facility] | [address] | [place], [place] | | | JUST[place]WN OF [place] | [address] | [address] | | | TESTS | | | [...] | + + + + + | [facility] | [address] | [place] [address] | | | CLAIRE | CLARENCE BONNER [...] (H) | 60 - 99 mg/dL | [facility] - | | | GLUCOSE, [...] [facility] | [address] | [place], [place] | | | [place] OF CARE | [address] | [address] | | | TESTS | | | [...] | + + + + + | [facility] | [address] | [place] [address] | | | SERVICES, | [address] [...] [facility] | [address] | [place] [address] | | | SERVICES, | [address] [...] | + + + + + | [facility] | [address] | [place] [address] | | | SERVICES, CORE | CLARENCE [...] [facility] | [address] | [place] [address] | | | SERVICES, CORE | PARK [...] [facility] | [address] | [place] [address] | | | SERVICES, CORE | PARK [...] [facility] | [address] | [place] [address] | | | SERVICES, CORE | PARK [...] the MDRD equation recommended by the | [facility] | | National Kidney Disease [...] | + + + + + | [facility] | [address] | [place] [address] | | | SERVICES, CORE | PARK [...] view image for the detailed interpretation from [employer] results. | CARDIOLOGY | + + + + + + + + | Performing | Address | City/State/Zipcode | Phone Number | | Organization | | | | + + + + + | [facility] | [address] | [place], [place] | | | CARDIOLOGY | [facility] | [address] | | + + + + + [...] [facility] | [address] | [place] [address] | | | SERVICES, CORE | [address] | | | + + + + + MADAY CEDILLO ONLY (11/06/2012 4:51 AM PDT) + + + + + + | Component | Value | Ref Range | Performed | Pathologist | | | | | At | Signature | + + + + + + | COLOR(UR) | Darlin | (none) | [facility] | | | | | | [facility]ORAT[facility] [...] [facility] | [address] | [place] [address] | | | SERVICES, CORE | [address] | | | + + + + + documented in this encounter Visit Diagnoses + + | Diagnosis | + + | Incarcerated ventral hernia Ventral hernia, unspecified, with obstruction | + + documented in this encounter
--- OUTSIDE RECORDS SUMMARY | ~2019-12-02 | XMS | Encounter Summary ---
Demographics + + + | Address | [address] | | | [place] [address] | + + + | Home Phone [...] + | Katalina Padilla | ECON | [address] | | | | | [place], [place] | | | | | [address] | | + + + + + | Ellie Vang | ECON | Unknown | | + + + + + Care Team Providers + +------+ + | Care [place] Extension Agent Name | Role | Phone | [...] + + | 06/23/ | Hospital | [facility] [address] | Kaleb Wilcox MD | | | 2017 | Encounter | [address] | [address] | | | | | [address] | [place], [place] | | | | | [place], | [address] | | | | | [place] [address] | [phone] | | | | | [phone] | | | +--------+ + + + [...] hours or on weekends and holiday Hospital Airline Stewardess toll free [phone]. [phone] and have the GI doctor recreation director paged. The provider who performed your procedure is: Dr. Wilcxo Results of your EGD: Dilation performed. You may resume your regular diet. Follow up Appointments with: Follow up with Dr. Pandey in bariatric surgery, thank you for choosing [facility]! Your primary care provider or referring provider [...] | | 0 | | | | [id number] | mouth two times | | | [...] Y gastric bypass Sedation: General anesthesia in [facility] Findings: Normal esophagus Normal appearing gastric pouch [...] 2:35 PM PST PRE PROCEDURE NOTE: MR# [id number] Subjective: Elzbieta Cristina is a 43 y.o. [...] [address] | | | | | | [place], [place] | | | | | | [address] | | | | | | [phone] | | | | | | | [...] -----+ | MRN: | [facility] | | [id number] Date: 06/23/2018Patient Name: Elzbieta Curtis #: | ENDOSCOP Y | | [id number] of : 1975CSN: [id number] Type: | | | AmbulatoryRoom: SORProcedure: Upper GI | | | endoscopyIndications: Nausea with vomiting, Status post | | | Qqdp-in-IVfmjiohew: KALEB WILCOX MD (Doctor), JOSE | | | [facility] Refrigeration Lead | | | (Refrigeration Lead)Referring MD: DANIELLE GARCÍAPRequestdonya | | | Provider: [...] | | | The Olympus [id number] Gastroscope #[id number] was | | | introduced through the [...] endoscope without resistance. The | | | jjmqt-ui-wotwhqk limb was characterized by healthy appearing | [...] Initiated On: | | | 06/23/2018 3:58 [facility] Letter to: FADI MICHAEL DO | [...] [facility] | [address] | [place], [place] | | | [place] OF CARE | [address] | [address] | | | TESTS | | | [...] | | | Until [facility] 06/24/18 at 0027, | | | | [...]
--- OUTSIDE RECORDS SUMMARY | ~2019-12-02 | XMS | Encounter Summary ---
Demographics + + + | Address | [address] | | | [place] [address] | + + + | Home Phone [...] [place], [place] | | | | | [address] | | + + + + + | Ellie Vang | ECON | Unknown | | + + + + + Care Team Providers + +------+ + | Care Utility Agent Name | Role | Phone | [...] | BROCK Roldan | | | with DELIVERY MERCHANDISER | | hypertension | [address] | [address] | | | | | Right | [address] | [place] | | | | | heart | [place], [place] | Brock [place], | | | | | failure | [address] | [place] | | | | | ([facility]) Type | Phone: | [address] | | | | | 2 diabetes | [phone] | | | | | | mellitus | Fax: | | | | | | without | [phone] | | | | | | complication | | | | | | | , with | | | | | | | long-term | | | | | | | current use | | | | | | | of insulin | | | | | | | ([facility]) | | | +--------+ + + + + + Encounter Details +--------+---------+ + + + | Date | Type | Department | Care Team | Description | +--------+---------+ + + + | 02/02/ | Office | Digestive Health | [address] | Morbid obesity with | | 2017 | Visit | Center at [facility] [address] | [address] | BMI of 70 and over, | | | | [facility] | Lesly Gutiérrez [place], | adult ([facility]) (Primary | | | | for Health and | [place] [address] | Dx); Type 2 | | | | Healing, Building 2 |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 | | | | [place], [place] | | without | | | | [address] | | complication, with | | | | [phone] | | long-term current | | | | | | use of insulin | | | | | | ([facility]); Chronic | | | | | | diastolic heart | | | | | | failure ([facility]) | +--------+---------+ + + + Social [...] of Visit: 10:03 to 10:30 (27 minutes lczb-ev-[id number] with patient) (1 hour ap point not [...] eat like she should, 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 Food [...] post-surgery diet progression. 4. Call or send Comecer message to dietitian with any questions. Contact information was provided. Follow up with dietitian prior to surgery (take 2 Weight management classes as part of 6 mo [facility] supervised diet). [address], [facility], LD [facility] Bariatrics [phone] documented in this enco unter Plan of Treatment +--------+---------+ + + + | Date | Type | Specialty | Care Team | Description | +--------+---------+ + + + | 03/15/ | Office | Cardiology | Randell Franks, | | | 2019 | Visit | | [address] | | | | | | [place], [place] | | | | | | [address] | | | | | | [phone] | | | | | | | | +--------+---------+ + + + documented as of this encounter Procedures + +--------+ + + + | Procedure Name | Priori | Date/Time | Associated Diagnosis | Comments | | | ty | | | | + +--------+ + + + | TX MNT RE-ASSESSMNT | Routin | 02/02/2017 | [...] 70 and over, adult ([facility]) - Primary | + + | Type 2 diabetes mellitus without complication, with long-term current use of insulin | | (HCC) | + + | Chronic diastolic heart failure (HCC) Chronic diastolic heart failure | + + documented in this encounter
--- OUTSIDE RECORDS SUMMARY | ~2019-12-02 | XMS | Encounter Summary ---
Demographics + + + | Address | [address] | | | [place] [address] | + + + | Home Phone [...] [place], [place] | | | | | [address] | | + + + + + | Ellie Vang | ECON | Unknown | | + + + + + Care Team Providers + +------+ + | Care Coat Padder Name | Role | Phone | + [...] | | bypass | [place], [place] | [facility] | | | | | Nausea and | [address] | for Health | | | | | vomiting, | Phone: | and Healing, | | | | | intractabili | | Building 2 | | | | | ty of | Fax: | [place], [place] | | | | | vomiting not | [phone] | [address] | | | | | specified, | | Phone: | | | | | unspecified | | [phone] | | | | | vomiting | | Fax: | | | | | type | | [phone] | | | | | Decreased | [...] | | | | | | [place] | | | | | | | UPPER GI | | | | | | | ENDOSCOPY,BI | | | | | | | OPSY [place] UP | | | | | | [...] | | 2017 | | Center at [facility] [address] | MD [address] | | | | | [address] | [place], [place] | | | | | Mailcode: [place] | [address] | | | | | for Health and | | | | | | [place] [address] | | | | | | [place], [place] | | | | | | [address] | | | | | | [phone] | | | +--------+ + + + [...] [address] | | | | | | [place], [place] | | | | | | [address] | | | | | | [phone] | | | | | | | [...]
--- OUTSIDE RECORDS SUMMARY | ~2019-12-02 | XMS | Encounter Summary ---
Demographics + + + | Address | [address] | | | [place] [address] | + + + | Home Phone [...] [place], [place] | | | | | [address] | | + + + + + | Ellie Vang | ECON | Unknown | | + + + + + Care Team Providers + +------+ + | Care Magnetic Tape Typewriter Operator Name | Role | Phone | [...] | 2016 | on | Center at [place] [address] | | | | | | [address] | | | | | | Mailcode: [place] | | | | | | for Health and | | | | | | [facility] 2 | | | | | | [place], [place] | | | | | | [address] | | | | | | [phone] | | | +--------+ + + + [...] [address] | | | | | | [place], [place] | | | | | | [address] | | | | | | [phone] | | | | | | | | +--------+---------+ + + + documented as of this encounter Visit Diagnoses Not on filedocumented in this encounter"
--- OUTSIDE RECORDS SUMMARY | ~2019-12-02 | XMS | Encounter Summary ---
Demographics + + + | Address | [address] | | | [place] [address] | + + + | Home Phone [...] [place], [place] | | | | | [address] | | + + + + + | Ellie Vang | ECON | Unknown | | + + + + + Care Team Providers + +------+ + | Care Electronic Semiconductor Processor Name | Role | Phone | + [...] [place] | | | | | | [address] | | | | | | [phone] | | | | | | | | +--------+---------+ + + + documented as of this encounter Visit Diagnoses Not on filedocumented in this encounter"
--- OUTSIDE RECORDS SUMMARY | ~2019-12-02 | XMS | Encounter Summary ---
Demographics + + + | Address | [address] | | | [place] [address] | + + + | Home Phone [...] [place], [place] | | | | | [address] | | + + + + + | Ellie Vang | ECON | Unknown | | + + + + + Care Team Providers + +------+ + | Care Licensed Appraiser Name | Role | Phone | + +------+ + | Fadi Goodrich DO | PCP | | + +------+ + Encounter Details +--------+ + + + + | Date | Type | Department | Care Team | Description | +--------+ + + + + | 02/09/ | Abstract | Digestive Health | Clinic, Surgery | | | 2016 | | [place] [address] [address] | | | | | | [address] | | | | | | Mailcode: [place] | | | | | | [facility] Health and | | | | | | [facility] 2 | | | | | | [place], [place] | | | | | | [address] | | | | | | [phone] | | | +--------+ + + + [...] [address]ann[address] | | | | | | [place], [place] | | | | | | [address] | | | | | | [phone] | | | | | | | | +--------+---------+ + + + documented as of this encounter Visit Diagnoses Not on filedocumented in this encounter"
--- OUTSIDE RECORDS SUMMARY | ~2019-12-02 | XMS | Encounter Summary ---
Demographics + + + | Address | [address] | | | [place] [address] | + + + | Home Phone [...] [place], [place] | | | | | [address] | | + + + + + | Ellie Vang | ECON | Unknown | | + + + + + Care Team Providers + +------+ + | Care Early Childhood Associate Name | Role | Phone | [...] | | 2015 | | Preventive at [facility] | MD [address] | | | | | [address] | [place], [place] | | | | | Mailcode: 9A | [address] | | | | | [facility] | [phone] | | | | | and Erick, | | | | | | Building 1 | | | | | | [place], [place] | | | | | | [address] | | | | | | [phone] | | | +--------+--------+ + + + [...] [address]ann[address] | | | | | | [place], [place] | | | | | | [address] | | | | | | [phone] | | | | | | | | +--------+---------+ + + + documented as of this encounter Visit Diagnoses Not on filedocumented in this encounter"
--- OUTSIDE RECORDS SUMMARY | ~2019-12-02 | XMS | Encounter Summary ---
Demographics + + + | Address | [address] | | | [place] [address] | + + + | Home Phone [...] [place], [place] | | | | | [address] | | + + + + + | Ellie Vang | ECON | Unknown | | + + + + + Care Team Providers + +------+ + | Care Apartment Community Assistant Manager Name | Role | Phone [...] | | 2014 | | Center at [facility] 00[address] | [facility] [address] | Review (Pre-surgery | | | | [address] | Ave [place], [place] | meal plan. To be | | | | Mailcode: [place] | [address] | provided to home | | | | for Health and | | health nurse. ) | | | | [facility], Building 2 | | | | | | [place], [place] | | | | | | [address] | | | | | | [phone] | | | +--------+ + + + [...] [address]ann[address] | | | | | | [place] | | | | | | [address] | | | | | | [phone] | | | | | | | | +--------+---------+ + + + documented as of this encounter Visit Diagnoses Not on filedocumented in this encounter"
--- OUTSIDE RECORDS SUMMARY | ~2019-12-02 | XMS | Encounter Summary ---
Demographics + + + | Address | [address] | | | [place] [address] | + + + | Home Phone [...] + | Katalina Padilla | ECON | [address] | | | | | [place], [place] | | | | | [address] | | + + + + + | Ellie Vang | ECON | Unknown | | + + + + + Care Team Providers + +------+ + | Care Vp Of Technology Name | Role | Phone | + [...] | Event | [address] | RMD [address] | | | | | [facility] | [address] | | | | | Hospital Admitting | [place], [place] | | | | | Desk Located on the | [address] | | | | | 9th floor | [phone] | | | | | [place], [place] | | | | | | [address] | Marcial Brunner CRNA | | | | | | [address] | | | | | | Lesly Gutiérrez [facility] | | | | | | [place] [address] | | | | | | [phone] | | | | | | | [...] [address] | | | | | | [place], [place] | | | | | | [address] | | | | | | [phone] | | | | | | | [...] | | | | INTRAPROCEDURE PRN, Starting Jsamyne | | AM PDT | | | [...]
--- OUTSIDE RECORDS SUMMARY | ~2019-12-02 | XMS | Encounter Summary ---
Demographics + + + | Address | [address] | | | [place] [address] | + + + | Home Phone [...] + | Katalina Padilla | ECON | [address] | | | | | [place], [place] | | | | | [address] | | + + + + + | Ellie Vang | ECON | Unknown | | + + + + + Care Team Providers + +------+ + | Care Mgmt Consultant Name | Role | Phone | [...] | | | | | | | [place] for | | | | | | | [place] and | | | | | | | Healing, | | | | | | | Building 2 | | | | | | | [place], [place] | | | | | | | [address] | | | | | | | Phone: | | | | | | | [phone] | | | | | | | Fax: | | | | | | | [phone] | +--------+--------+ + + + + Encounter [...] | | [address] | Ave [place], [place] | adult (HCC) (Primary | | | | Mailcode: Center | [address] | Dx); Vitamin D | | | | for Health and | | deficiency disease; | | | | Healing, Building 2 | | Intertriginous | | | | [place], [place] | | candidiasis; | | | | [address] | | Diabetes mellitus | | | [...] will arrange 8. Nephrology Consult: Please call [employer] ([phone]) and have them send you a urine [...] at the same time: betsy Feldman RN, [facility]- Nurse Practitioner for Bariatric Surgery [facility] | [address] | [place], [place] | [address] | Potential Contraindications to Bariatric Surgery Age [...] INITIAL VISIT Provider: Shereen Pinto DNP, DANIELLEP, ADOBE CQ DEVELOPER Referring Provider: Dr. Fadi Goodrich, [place] [phone] Reason for Requested Consultation: Initial evaluation for bariatric surgery. Elzbieta Farooq is interested in Frandy en y alfredo tomeka bypass. The pt is here With her sister. Following surgery her mother and sister will care for her, she will Stay in [place] after surgery so that she is close by. She lives in [place]. They have few stairs to get into [...] recently gained weight, she met with our upholstery restorer today, she has been making poor food [...] none Use of Redux or Phen/fen: no Adventist or cultural reason you would refuse blood [...] as well , hypertension, hyperlipidemia. Denies CHF, VA, ischemic heart disease, DVT/PE, or pulmonary hypertension. [...] the therapy. 8. Nephrology Consult: Please call [facility] [employer] ([phone]) and have them send you a urine [...] You will need a referral to a pharmaceutical engineer If your level is elevated. 9. See [...] soon as possible Shereen Pinto DNP ACNP, ADOBE CQ DEVELOPER Nurse Practitioner for Bariatric Surgery [facility] | [address] | [place], [place] | [address] | Potential Contraindications to Bariatric Surgery Age [...] | | | | | | [place], [place] | | | | | | [address] | | | | | | [phone] | | | | | | | [...] | | | | | | by [facility],[address] | | | | | | [place] | | | | | | [address] | | | | | | [phone].aruplab. | | | | | | pastora, [...] at | | | | | | [employer] | | | | | | developed and | | | | | | characteristics | | | | | | determined by | | | | | | [employer]. See | | | | | | Compliance Statement B: | | | | | | [employer]/CS | | | | + + + + + + + + | Specimen | + + | Blood - Blood | + + + + + + + | Performing | Address | City/State/Zipcode | Phone Number | | Organization | | | | + + + + + | [facility] | [address] | [place], [place] | | | UN[facility] | | [address] | | + + + + + [...]
--- OUTSIDE RECORDS SUMMARY | ~2019-12-02 | XMS | Encounter Summary ---
Demographics + + + | Address | [address] | | | [place] [address] | + + + | Home Phone [...] [place], [place] | | | | | [address] | | + + + + + | Ellie Vang | ECON | Unknown | | + + + + + Care Team Providers + +------+ + | Care Closer On Name | Role | Phone | + [...] | [facility] | | | with CABIN EQUIPMENT SUPERVISOR | | hypertension | [address] | [address] | | | | | Right | [address] | [address] | | | | | heart | [place], [place] | Mailcode: | | | | | failure | [address] | Center for | | | | | ([facility]) Type | Phone: | Health and | | | | | 2 diabetes | [phone] | Healing, | | | | | mellitus | Fax: | Building 2 | | | | | without | [phone] | [place], [place] | | | | | complication | | [address] | | | | | , with | | Phone: | | | | | long-term | | | | | | | current use | | Fax: | | | | | of insulin | | [phone] | | | | | ([facility] [...] Nilesh-en-Y | | 2019 | Visit | [place] [facility] [address] | FUR BLOWER [address] | gastric bypass | | | | [address] | [place], [place] | (Primary Dx); | | | | Mailcode: [place] | [address] | Intertriginous | | | | for Health and | [phone] | candidiasis | | | | [facility] 2 | | | | | | [place], [place] | | | | | | [address] | | | | | | [phone] | | | +--------+---------+ + + + [...] Has a new PCP, Dr. Cardenas in [facility]. Bariatric Measures: Activity: walking 1.5-2 miles daily [...] or less 8 [facility] Social History Social History Marital status: [...] History Narrative Updated 11/09/15 She lives in [place] with her mother and her sister (also her caregiver) lives in an apa rtment/duplex below. She has 2 grandchildren (age 4 and 7) who live with her daughter and son-in-law Her boyfriend lives in [place] HFpEF, DM2, HTN, Sleep Apnea (unable to [...] program here and refer her to our economic development specialist who also has expertise in [...] tongue once daily., Disp: , Rfl: CALCIUM CRB&WMD-U4-DHC52-GENIS ORAL, Take 2 tablets by mouth two [...] n/a -HTN: still on medications -Diabetes: seeing forest engineer in December, hopes to eliminate Metformin then as recent A1c was normal Return to bariatric clinic in 6 months for 1 year follow up visit See your primary care provider for adjusting any other medications. Call if any abdominal pain, n/v/d or other issues. Pt agrees to plan and will call and/or send [employer] message if any issues. Start time 2:45, end time 3:10. I spent a total of 25 minutes face to face with this patie nt. Over 50% of visit was in counseling. HILDA Davalos Bariatric Surgery Nurse Practitioner [facility] | [address] | [place] | [address] | documented in this encounter Plan of Treatment +--------+---------+ + + + | Date | Type | Specialty | Care Team | Description | +--------+---------+ + + + | 03/15/ | Office | Cardiology | Randell Franks, | | | 2019 | Visit | | [address] | | | | | | [place], [place] | | | | | | [address] | | | | | | [phone] | | | | | | | [...] | | e | 3:29 PM | Nielsh-en-Y gastric | procedure are in the | [...] | + + + + + | [facility] | [address] | [place] [address] | | | SERVICES, CORE | PARK [...] | + + + + + | [facility] | [address] | [place] [address] | | | SERVICES, LYDIA | CLARENCE [...] INTFC | | | | determined by [email or web address] | | | | | | [employer]. See | | | | | | Compliance Statement B: | | | | | | [employer]/CSPerformed | | | | | | by [employer],[address] | | | | | | [address] [facility],[place] | | | | | | [address] | | | | | | [phone].[employer]. | | | | | | [...] [facility] | [address] | [place], [place] | | | [facility] | | [address] | | + + + + + [...] B: | | | | | | [employer]/CSPerformed | | | | | | by [employer],[address] | | | | | | [address]arson, [facility],[place] | | | | | | [address] | | | | | | [phone].[employer]. | | | | | | [facility] hospital[facility]mael MD, | | | | | [...] [facility] | [address] | [place], [place] | | | UN[facility] | | [address] | | + + + + + [...] [facility] | | | (YEN NOAH) | [employer],[address] | | REG UNIV | | | SERUM | [facility] | | PTH - INT[facility] | | | | [address] | | | | | | [phone].[employer]. | | | | | | Ismael [...] B: | | | | | | [employer]/CS | | | | + + + + + + + + | Specimen | + + | Blood - Blood | | (substance) | + + + + + + + | Performing | Address | City/State/Zipcode | Phone Number | | Organization | | | | + + + + + | [facility] | [address] | [place], [place] | | | [facility] | | [address] | | + + + + + [...] [facility] | [address] | [place] [address] | | | SERVICES, CORE | CLARENCE [...] | + + + + + | [facility] [employer] | [address] | [place] [address] | | | SERVICES, CORE | CLARENCE [...] | | | | | determined by [email or web address] | | | | | | Laboratories. See | | | | | | Compliance Statement B: | | | | | | [employer]/CSPerformed | | | | | | by [employer],[address] | | | | | | [facility] | | | | | | [address] | | | | | | [phone].[employer]. | | | | | | [facility] hospitalIsmael MD, | | | | | | Lab. Director | | | | + + + + + + + + | Specimen | + + | Blood - Blood | | (substance) | + + + + + + + | Performing | Address | City/[facility] | Phone Number | | Organization | | | | + + + + + | [facility] | [address] | [place], [place] | | | UN[facility] | | [address] | | + + + + + [...] | + + + + + | [facility] | [address] | [place] [address] | | | SERVICES, CORE | CLARENCE [...] | | | | | determined by [facility] | | | | | | Laboratories. See | | | | | | Compliance Statement B: | | | | | | [employer]/CSPerformed | | | | | | by [employer],[address] | | | | | | [facility] | | | | | | [address] | | | | | | [phone].[employer]. | | | | | | [...] [facility] | [address] | [place], [place] | | | UN[facility] | | [address] | | + + + + + [...] | + + + + + | [facility] | [address] | [place] [address] | | | SERVICES, CORE | PARK [...] | + + + + + | [facility] | [address] | [place] [address] | | | SERVICES, SPECIAL | PARK [...] | + + + + + | [facility] | [address] | [place] [address] | | | SERVICES, CORE | CLARENCE [...] at | | | | | | [email or web address] | | | | | | med by [facility] | | | | | | Laboratories,[address] | | | | | | Juan, [facility] [address] | | | | | | [phone].[employer]. | | | | | | [facility] hospitalIsmael MD, | | | | | | Lab. Director | | | | + + + + + + + + | Specimen | + + | Blood - Blood | | (substance) | + + + + + + + | Performing | Address | City/State/[facility] | Phone Number | | Organization | | | | + + + + + | [facility] | [address] | [place], [place] | | | UN[facility] | | [address] | | + + + + + [...] | | | LABORATORY | | | BENINESE | | | SERVICES, | | | [...] | + + + + + | [facility] | [address] | [place] [address] | | | SERVICES, CORE | CLARENCE [...]
--- OUTSIDE RECORDS SUMMARY | ~2019-12-02 | XMS | Encounter Summary ---
Demographics + + + | Address | [address] | | | [place] [address] | + + + | Home Phone [...] Organization | [facility] | | | and [...] Team Providers + +------+ + | Care Biochemist Name | Role | Phone | + +------+ + PCP | Unavailable | + +------+ + Encounter Details +--------+ + + + + | Date | Type | Department | Care Team | Description | +--------+ + + + + | 02/16/ | Orders Only | [facility] | Sulema Altamirano | | | 2017 | | CONVERSION [address] | Toshia, RAILROAD PURCHASING AGENT [address] | | | [address] | [place] | | | | | [place], [place] | [place] [address] | | | | | [address] | [phone] | | | | | [phone] | (Fax) | | +--------+ + + [...] [place] | | | | | | [place] [address] | | | | | | [phone] | | | | | | | [...] 5.71 | | | RAP: 5 mmHg Police Academy Instructor: JESSICA Authenticated by: BENJY | | | [...] cmLVPWd: 0.81 | | cmLVOT Area: 3.98 de1RMBE Diam: 2.25 cm%FS: 32.91 %EF(Teich): 61.28 | [...] (A-L): 20.64 ml/m2LAAs A2C: 14.37 | | ml9FQTEL A-L A2C: 40.74 mlLALs A2C: 4.30 cmLAAs A4C: 16.09 py5HCVDC A-L A4C: | | 43.02 mlLALs A4C: 5.10 cmRAAs: 13.58 ji1SCFOU A-L: 33.08 mlRAESV MOD: 32.14 | | mlRALs: 4.73 cmTAPSE: 2.16 cmAV maxP.33 mmHgAV meanP.31 mmHgAV Vmax: | | 1.60 m/Genesis Vmean: 1.08 m/Genesis VTI: 25.19 cmAVA Vmax: 2.75 cm2AVA (VTI): 3.06 | | kb2JBRZ Vmax: 0.00 cm2/m2AVAI (VTI): 0.00 cm2/m2LVOT maxP.93 mmHgLVOT meanPG: | | 2.50 mmHgLVSI Dopp: 34.92 ml/m2LVSV Dopp: 77.18 mlLVOT Vmax: 1.11 m/sLVOT Vmean: | | 0.73 m/sLVOT VTI: 19.34 cmMV A Jeffrey: 0.81 m/sMV DecT: 249.81 msMV E Jeffrey: 0.82 | | m/sMV E/A Ratio: 1.01MV PHT: 72.44 msMVA By PHT: 3.03 uo2Tpnhxh e': 0.07 | | m/sSeptal E/e': 11.80Lateral e': 0.14 m/sLateral E/e': 5.71RAP: 5 mmHg | | [employer] Instructor: DHAuthenticated by: Shirley SILVER Date/Time: 02-16-2017 18:47:15 [...] | |RAP: 5 mmHg | | | |Police Academy Instructor: JESSICA | |Authenticated by: BENJY HANKINS MD [...]
--- OUTSIDE RECORDS SUMMARY | ~2019-12-02 | XMS | Encounter Summary ---
Demographics + + + | Address | [address] | | | [place] [address] | + + + | Home Phone [...] + | Katalina Padilla | ECON | [address] | | | | | [place], [place] | | | | | [address] | | + + + + + | Ellie Vang | ECON | Unknown | | + + + + + Care Team Providers + +------+ + | Care Ballet Teacher Name | Role | Phone | [...] | [facility] | | | with HEALTH INFORMATION SYSTEMS TECHNICIAN | | hypertension | [address] | [address] | | | | | Right | [address] | [address] | | | | | heart | [place], [place] | Mailcode: | | | | | failure | [address] | [facility] | | | | | ([facility]) Type | Phone: | Health and | | | | | 2 diabetes | [phone] | Healing, | | | | | mellitus | Fax: | Building 2 | | | | | without | [phone] | [place], [place] | | | | | complication | | [address] | | | | | , with | | Phone: | | | | | long-term | | | | | | | current use | | Fax: | | | | | of insulin | | [phone] | | | | | ([facility]) | | | | | | [...] 2018 | Visit | Center at [facility] [address] | [address] | BMI of 70 and over, | | | | [address] | [place], [place] | adult ([facility]) (Primary | | | | Mailcode: Center | [address] | Dx); Diabetes | | | | for Taplet and | [phone] | mellitus type 2 | | | | [facility], Building 2 | | without retinopathy | | | | [place], [place] | | ([facility]); | | | | [address] | | Intertriginous | | | | [phone] | | candidiasis; PCOS | | | | | | (polycystic ovarian | | | | | | syndrome); AMARA | | | | | | treated with BiPAP; | | | | | | Chronic diastolic | | | | | | heart failure ([facility]); | | | | | | [...] visit with our [facility] Catering Sous Chef (RD) for instructions about your Bariatric diet, assistance with calorie c ounts, tips and tricks for working with your diet restrictions, and recipes after bariatric surgery. Daily yogurt; even just 1 tablespoon twice a day will provide enough probiotics to optimize digestion. Try to use a high-quality, probiotic-dense yogurt (eg Zaria's, Kobifield, Stacie lala Kefir, Car Filler Duke's Kyrgyz Yogurt). Remember to chew your food well, [...] the healing stomach. There are also termite exterminator helper complications of poor wound healing and gastric [...] Dr. Andie Brian Incisional hernia repair 03/01/2015 [facility]/ Dr. Cantu. Primary fascial closure [...] 1 tablet by mouth once daily CALCIUM CRB&ELM-O7-ILY06-GENIS ORAL Take 2 tablets by mouth two [...] History Narrative Updated 11/09/15 She lives in [place] with her mother and her sister (also her caregiver) lives in an artment/duplex below. She has 2 grandchildren (age 4 and 7) who live with her daughter and son-in-law Her boyfriend lives in [place] HFpEF, DM2, HTN, Sleep Apnea (unable to [...] program here and refer her to our cardiac/vascular sonographer who also has expertise in physical activity [...] rate of reoperation over the termite exterminator helper (i.e. years), as well as other late [...] and may approach 5%. We reviewed the [facility] consent form. We discussed that we [...] Flannery | | | | | | [place], [place] | | | | | | [address] | | | | | | [phone] | | | | | | | [...] | | | |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 ([facility]) | | | | | | [...] | | | | | determined by [facility] | | | | | | Laboratories. See | | | | | | Compliance Statement B: | | | | | | [facility]/CSPerformed | | | | | | by Nasty Gal,[address] | | | | | | Liliana Martinez [facility] [place] | | | | | | [address] | | | | | | [phone].[facility]. | | | | | | comIsmael [...] [facility] | [address] | [place], [place] | | | UNIV PTH - INTFC | | [address] | | + + + + + [...] + + | [facility] | [address] | [place] [address] | | | SERVICES, LYDIA | CLARENCE [...] | + + + + + | [facility] | [address] | [place] [address] | | | SERVICES, CORE | CLARENCE [...] | + + + + + | [facility] | [address] | [place] [address] | | | SERVICES, CORE | PARK [...] [facility] | [address] | [place] [address] | | | SERVICES, CORE | PARK [...] [facility] | [address] | [place] [address] | | | SERVICES, LYDIA | CLARENCE [...] | + + + + + | [facility] | [address] | [place] [address] | | | SERVICES, CORE | [address] | | | + + + + + documented in this encounter Visit Diagnoses + + | Diagnosis | + + | Morbid obesity with BMI of 70 and over, adult ([facility]) - Primary | + + | Diabetes mellitus type 2 without retinopathy ([facility]) Type II or unspecified type | | [...]
--- OUTSIDE RECORDS SUMMARY | ~2019-12-02 | XMS | Encounter Summary ---
Demographics + + + | Address | [address] | | | [place] [address] | + + + | Home Phone [...] [place], [place] | | | | | [address] | | + + + + + | Ellie Vang | ECON | Unknown | | + + + + + Care Team Providers + +------+ + | Care Political Science Instructor Name | Role | Phone [...] [id number] | | | | | | [facility] | | | | | | [place], [place] | | | | | | [address] | | | | | | [phone] | | | +--------+ + + + [...] Flannery | | | | | | [place], [place] | | | | | | [address] | | | | | | [phone] | | | | | | | | +--------+---------+ + + + documented as of this encounter Visit Diagnoses Not on filedocumented in this encounter"
--- OUTSIDE RECORDS SUMMARY | ~2019-12-02 | XMS | Encounter Summary ---
Demographics + + + | Address | [address] | | | [place] [address] | + + + | Home Phone [...] [place], [place] | | | | | [address] | | + + + + + | Ellie Vang | ECON | Unknown | | + + + + + Care Team Providers + +------+ + | Care Director Of Academic Name | Role | Phone | + [...] Recommendations | | | | [address] | [place], [place] | | | | | Mailcode: [place] | [address] | | | | | for Health and | [phone] | | | | | [facility] 2 | | | | | | [place], [place] | | | | | | [address] | | | | | | [phone] | | | +--------+ + + + [...] Flannery | | | | | | [place], [place] | | | | | | [address] | | | | | | [phone] | | | | | | | | +--------+---------+ + + + documented as of this encounter Visit Diagnoses Not on filedocumented in this encounter"
--- OUTSIDE RECORDS SUMMARY | ~2019-12-02 | XMS | Encounter Summary ---
Demographics + + + | Address | [address] | | | [place] [address] | + + + | Home Phone [...] [place], [place] | | | | | [address] | | + + + + + | Ellie Vang | ECON | Unknown | | + + + + + Care Team Providers + +------+ + | Care Home Service Technician Name | Role | Phone | [...] Diabetes & | Morbid | Kathy Feliciano, RANGE MANAGER | [address] | | | | Metabolism | obesity | [address] | Pavilion | | | | | (HCC) | [address], | Loop | | | | | Procedures | [address] | Physician's | | | | | CONSULT TO | [place], [place] | Pavilion | | | | | ENDO | [address] | Physician's | | | | | [address] | Phone: | Pavilion | | | | | [address] | [phone] | [place], [place] | | | | | | Fax: | [address] | | | | | | [phone] | Phone: | | | | | | | [phone] | | | | | | | Fax: | | | | | | | [phone] | +--------+--------+ + + + + Encounter Details +--------+ + + + + | Date | Type | Department | Care Team | Description | +--------+ + + + + | 11/15/ | Documentati | Digestive Health | Kathy Feldman, | | | 2012 | on | Center at [facility] [address] | RANGE MANAGER [address] | | | | | [address] | [facility] 350 | | | | | Mailcode: Center | [place], [place] | | | | | [facility] and | [address] | | | | | [facility] 2 | [phone] | | | | | [place], [place] | | | | | | [address] | | | | | | [phone] | | | +--------+ + + + [...] | | | | | | [place], [place] | | | | | | [address] | | | | | | [phone] | | | | | | | | +--------+---------+ + + + documented as of this encounter Visit Diagnoses + + | Diagnosis | + + | Morbid obesity (HCC) - Primary Morbid obesity | + + documented in this encounter"
--- OUTSIDE RECORDS SUMMARY | ~2019-12-02 | XMS | Encounter Summary ---
Demographics + + + | Address | [address] | | | [place] [address] | + + + | Home Phone [...] Organization | [facility] | | | and [...] Team Providers + +------+ + | Care Sampler Tester Name | Role | Phone | + +------+ + | Jorje Hill | PCP | | + +------+ + Encounter Details +--------+ + + + + | Date | Type | Department | Care Team | Description | +--------+ + + + + | 06/20/ | Hospital | [facility] | Dharmesh Melchor | Canceled (OTHER) | | 2019 | Encounter | CENTER IR INTRA OP | MD Natan [address] | | | | | [address] | [address] | | | | | [place], [place] | [place] [address] | | | | | [address] | [phone] | | | | | [phone] | | | | | | | Christian Dawson MD | | | | | | [address] | | | | | | [place], [place] | | | | | | [address] | | | | | | | [...] RICHEY | | | | | | [place] [address] | | | | | | [phone] | | | | | | | [...]
--- OUTSIDE RECORDS SUMMARY | ~2019-12-02 | XMS | Encounter Summary ---
Demographics + + + | Address | [address] | | | [place] [address] | + + + | Home Phone [...] | [facility] | | [...] Team Providers + +------+ + | Care Dispute Specialist Name | Role | Phone | [...] Closed | | Radiology | Diagnoses | [place], | [facility] | | | | | Deep vein | Dharmesh | Intra Op [address] | | | | | thrombosis | MD Natan | [address] | | | | | (DVT) of | [address] | [place], [place] | | | | | left lower | [address] | [address] | | | | | extremity, | [address] | Phone: | | | | | unspecified | [place], [place] | [phone] | | | | | chronicity, | [address] | Fax: | | | | | unspecified | Phone: | [phone] | | | | | vein (HCC) | [phone] | | | | | | Procedures | Fax: | | | | | | IR Removal | [phone] | | | | | | Fibrin [...] Closed | | Radiology | Diagnoses | [place], | [facility] | | | | | Deep vein | Dharmesh | Intra Op [address] | | | | | thrombosis | MD Natan | [address] | | | | | (DVT) of | [address] | [place], [place] | | | | | left lower | [address] | [address] | | | | | extremity, | [address] | Phone: | | | | | unspecified | [place], [place] | [phone] | | | | | chronicity, | [address] | Fax: | | | | | unspecified | Phone: | [phone] | | | | | vein (HCC) | [phone] | | | | | | Procedures | Fax: | | | | | | IR Removal | [phone] | | | | | | Fibrin | | | | | | | Sheath/Clot | | | | | | | on Device | | | +--------+--------+ + + + + Encounter Details +--------+ + + + + | Date | Type | Department | Care Team | Description | +--------+ + + + + | 11/27/ | Hospital | [facility] | Dharmesh Melchor | Deep vein thrombosis | | 2019 | Encounter | CENTER CV INTRA OP | MD Natan [address] | (DVT) of left lower | | | | [address] | [place] | extremity, | | | | [place], [place] | [place] [address] | unspecified | | | | [address] | [phone] | chronicity, | | | | [phone] | | unspecified vein | | | | | Christian Dawson MD | (HCC) | | | | | [address] | | | | | | [place], [place] | | | | | | [address] | | | | | | | [...] documented in this encounter Discharge Instructions Instructions Sehree Snow RN - 06/22/2019 Picc line Catheter [...] notice any of the signs, contact the [facility] at between 8:00 am and 5:00 [...] | | 0 | | | | [facility] | mouth 2 times daily. | | [...] + + +---------+ + + | thyroid (MANAGER AIR | MANAGER AIR Thyroid 30 mg | | 0 | [...] RICHEY | | | | | | [place] [address] | | | | | | [phone] | | | | | | | [...]
--- OUTSIDE RECORDS SUMMARY | ~2019-12-02 | XMS | Encounter Summary ---
Demographics + + + | Address | [address] | | | [place] [address] | + + + | Home Phone [...] [place], [place] | | | | | [address] | | + + + + + | Ellie Vang | ECON | Unknown | | + + + + + Care Team Providers + +------+ + | Care Project Director Name | Role | Phone | [...] Dx) | | | | Surgery at [facility] [address] | [place], [place] | | | | | [address] | [address] | | | | | Mailcode: [facility] | [phone] | | | | | [facility] | | | | | | and Healing, | | | | | | Building 1, | | | | | | Floor [place], [place] | | | | | | [address] | | | | | | [phone] | | | +--------+---------+ + + + [...] [facility] Cholecyst[facility], laparoscopic Allergies Allergen Reactions [...] 50 mg by mouth once daily. CALCIUM CRB&PCX-K5-ELB21-GENIS ORAL Take 2 tablets by mouth two [...] Flannery | | | | | | [place], [place] | | | | | | [address] | | | | | | [phone] | | | | | | | | +--------+---------+ + + + documented as of this encounter Visit Diagnoses + + | Diagnosis | + + | Excess skin of abdomen - Primary Unspecified hypertrophic and atrophic condition of | | skin | + + documented in this encounter
--- OUTSIDE RECORDS SUMMARY | ~2019-12-02 | XMS | Encounter Summary ---
Demographics + + + | Address | [address] | | | [place] [address] | + + + | Home Phone [...] Organization | [facility] | | | and Jeffana [...] Providers + +------+ + | Care Radiology Clerk Name | Role | Phone | + +------+ + PCP | Unavailable | + +------+ + Encounter Details +--------+ + + + + | Date | Type | Department | Care Team | Description | +--------+ + + + + | 12/13/ | Hospital | [facility] | Erich Wells | | | 2004 | Encounter | MED CTR SLEEP | MD Michael [address] | | | | | CENTER [address] | [address] [place] | | | | | [place], [place] | [place] [address] | | | | | [address] | [phone] | | | | | [phone] | | | +--------+ + + + [...] RICHEY | | | | | | [place] [address] | | | | | | [phone] | | | | | | | | +--------+---------+ + + + documented as of this encounter Visit Diagnoses Not on filedocumented in this encounter"
--- OUTSIDE RECORDS SUMMARY | ~2019-12-02 | XMS | Encounter Summary ---
Demographics + + + | Address | [address] | | | [place] [address] | + + + | Home Phone [...] [place], [place] | | | | | [address] | | + + + + + | Ellie Vang | ECON | Unknown | | + + + + + Care Team Providers + +------+ + | Care Carbon Setter Name | Role | Phone | [...] | | | [address] | [place], [place] | Dx); History of | | | | Mailcode: Center | [address] | Frandy-en-Y gastric | | | | for Health and | | bypass | | | | [facility], [facility] 2 | | | | | | [place], [place] | | | | | | [address] | | | | | | [phone] | | | +--------+---------+ + + + [...] healing stomach. There are also termite exterminator complications of poor wound healing and gastric u lcers. These ulcers are started by smoking or using other nicotine products (vapor cigarett es etc). Gastric bypass patients should also avoid NSAIDS(ibuprofen, advil, motrin, naprosyn/naproxe n/aleve) to prevent gastric/marginal ulcers. Please visit with our Knit Tubing Dyer (RD) for instructions about your Bariatric diet, assistance with calorie counts, tips and tricks for working with your diet restrictions, an d recipes after bariatric surgery. Daily yogurt; even just 1 tablespoon twice a day will provide enough probiotics to optimize digestion. Try to use a high-quality, probiotic-dense yogurt (eg Zaria's, [place], Lif eway Kefir, Machine Assembler For Puller Over Duke's Polish Yogurt). Remember to chew your food well, [...] protein daily, and 64 oz water daily. Baggage Clerk just changed diet to he lp her [...] by communicating with her mother - Follow Baggage Clerk recommendations to help with nausea (decrease volume, [...] Anisa Dillon MD PGY-1, Red Surgery Pager: [phone] documented in this encounter Plan of Treatment +--------+---------+ + + + | Date | Type | Specialty | Care Team | Description | +--------+---------+ + + + | 03/15/ | Office | Cardiology | Randell Franks, | | | 2019 | Visit | | MD [address] | | | | | | [place], [place] | | | | | | [address] | | | | | | [phone] | | | | | | | | +--------+---------+ + + + documented as of this encounter Visit Diagnoses + + | Diagnosis | + + | Aftercare following surgery - Primary Encounter for other specified aftercare | + + | History of Frandy-en-Y gastric bypass Bariatric surgery status | + + documented in this encounter
--- OUTSIDE RECORDS SUMMARY | ~2019-12-02 | XMS | Encounter Summary ---
Demographics + + + | Address | [address] | | | [place] [address] | + + + | Home Phone [...] [place], [place] | | | | | [address] | | + + + + + | Ellie Vang | ECON | Unknown | | + + + + + Care Team Providers + +------+ + | Care Motel Maid Name | Role | Phone | + [...] | 2017 | | Preventive at [facility] | MD [address] | | | | | [address] | [place], [place] | | | | | Mailcode: [facility] | [address] | | | | | [facility] | [phone] | | | | | and Erick | | | | | | Building [address] | | | | | | [facility] [place] | | | | | | [address] | | | | | | [phone] | | | +--------+ + + + [...] Flannery | | | | | | [place], [place] | | | | | | [address] | | | | | | [phone] | | | | | | | | +--------+---------+ + + + documented as of this encounter Visit Diagnoses Not on filedocumented in this encounter"
--- OUTSIDE RECORDS SUMMARY | ~2019-12-02 | XMS | Encounter Summary ---
Demographics + + + | Address | [address] | | | [place] [address] | + + + | Home Phone [...] [place], [place] | | | | | [address] | | + + + + + | Ellie Vang | ECON | Unknown | | + + + + + Care Team Providers + +------+ + | Care Materials And Processes Manager Name | Role | Phone | + +------+ + | Fadi Goodrich DO | PCP | | + +------+ + Encounter Details +--------+ + + + + | Date | Type | Department | Care Team | Description | +--------+ + + + + | 12/05/ | Abstract | Cardiology | Randell Franks, | | | 2016 | | Preventive at [facility] | MD [address] | | | | | [address] | [facility] [place] | | | | | Mailcode: CH9A | [address] | | | | | [facility] | [phone] | | | | | and Healing, | | | | | | [address] | | | | | | [facility] [place] | | | | | | [address] | | | | | | [phone] | | | +--------+ + + + [...] | | 2019 | Visit | | [address] | | | | | | [place], [place] | | | | | | [address] | | | | | | [phone] | | | | | | | | +--------+---------+ + + + documented as of this encounter Visit Diagnoses Not on filedocumented in this encounter"
--- OUTSIDE RECORDS SUMMARY | ~2019-12-02 | XMS | Encounter Summary ---
Demographics + + + | Address | [address] | | | [place] [address] | + + + | Home Phone [...] + | Katalina Padilla | ECON | [address] | | | | | [place], [place] | | | | | [address] | | + + + + + | Ellie Vang | ECON | Unknown | | + + + + + Care Team Providers + +------+ + | Care Rehab Aide Name | Role | Phone | + +------+ + | Fadi Goodrich DO | PCP | | + +------+ + Encounter Details +--------+------+ + + + | Date | Type | Department | Care Team | Description | +--------+------+ + + + | 05/27/ | Lab | Laboratory at [facility] | | History of Frandy-en-Y | | 2017 | | [address] | | gastric bypass; | | | | [place], [place] | | Ventral hernia | | | | [address] | | without obstruction | | | | [phone] | | or gangrene; Mixed | | [...] [place] | | | | | | [address] | | | | | | [phone] | | | | | | | [...] [facility] | [address] | [place] [address] | | | SERVICES, CORE | PARK [...] + + + + | [facility] | [address] | [place] [address] | | | LYDIA RANGEL | CLARENCE [...] [facility] | | considered for monitoring terminal carman glycemic control in patients with: | LABORATORY [...] | + + + + + | [facility] | [address] | [place] [address] | | | SERVICES, SPECIAL | PARK [...] | | | | | determined by [employer] | | | | | | Laboratories. See | | | | | | Compliance Statement B: | | | | | | Food on the Table.RipCode/CSPerformed | | | | | | by Kid[place]ia,[address] | | | | | | Liliana [facility]PR[facility],[place] | | | | | | [address] | | | | | | [phone].Food on the Table. | | | | | | com, [...] [facility] | [address] | [place], [place] | | | UNIV PTH - INTFC | | [address] | | + + + + + [...] [facility] | [address] | [place] [address] | | | SERVICES, CORE | PARK [...] [facility] | [address] | [place] [address] | | | SERVICES, CORE | PARK [...] | + + + + + | [facility] | [address] | [place] [address] | | | SERVICES, CORE | PARK [...] [facility] | [address] | [place] [address] | | | SERVICES, CORE | PARK [...] [facility] | [address] | [place] [address] | | | SERVICES, CORE | PARK [...] | + + + + + | [facility] | [address] | [place] [address] | | | SERVICES, LYDIA | CLARENCE [...]
--- OUTSIDE RECORDS SUMMARY | ~2019-12-02 | XMS | Encounter Summary ---
Demographics + + + | Address | [address] | | | [place] [address] | + + + | Home Phone [...] [place], [place] | | | | | [address] | | + + + + + | Ellie Vang | ECON | Unknown | | + + + + + Care Team Providers + +------+ + | Care Environmental Services Project Manager Name | Role | Phone [...] | at [facility] [address] | COMPOUND WORKER [address] | [facility] | | | | Ave Mailcode: CH7C | [place], [place] | | | | | [facility] | [address] | | | | | and [address]rick, | [phone] | | | | | [facility] | | | | | | Floor [place], [place] | | | | | | [address] | | | | | | [phone] | | | +--------+ + + + [...] | | 2019 | Visit | | [address] | | | | | | [place], [place] | | | | | | [address] | | | | | | [phone] | | | | | | | | +--------+---------+ + + + documented as of this encounter Visit Diagnoses Not on filedocumented in this encounter"
--- OUTSIDE RECORDS SUMMARY | ~2019-12-02 | XMS | Encounter Summary ---
Demographics + + + | Address | [address] | | | [place] [address] | + + + | Home Phone [...] [place], [place] | | | | | [address] | | + + + + + | Ellie Vang | ECON | Unknown | | + + + + + Care Team Providers + +------+ + | Care Insurance Sales Agent Name | Role | Phone [...] | | | | | essential | [address] | [address] | | | | | hypertension | [address] | Ave | | | | | Type II or | [address] | [place], [place] | | | | | unspecified | [place] | [address] | | | | | type | [address] | Phone: | | | | | diabetes | Phone: | [phone] | | | | | mellitus | [phone] | Fax: | | | | | without | Fax: | [phone] | | | | | mention of | [phone] | | | | | | complication [...] | Visit | Preventive at [facility] | MD [address] | mellitus (HCC) | | | | [address] | [place], [place] | (Primary Dx) | | | | Mailcode: CH9A | [address] | | | | | [facility] | [phone] | | | | | and [address]rick, | | | | | | Building [address] | | | | | | [place], [place] | | | | | | [address] | | | | | | [phone] | | | +--------+---------+ + + + [...] Wi ll discuss with Dr. Brian and manager sql her best strategies for meeting weight loss [...] [place] | | | | | | [address] | | | | | | [phone] | | | | | | | [...] + + + | [facility] | [address] | [place] [address] | | | SERVICES, SPECIAL | CLARENCE [...]
--- OUTSIDE RECORDS SUMMARY | ~2019-12-02 | XMS | Encounter Summary ---
Demographics + + + | Address | [address] | | | [place] [address] | + + + | Home Phone [...] + | Katalina Padilla | ECON | [address] | | | | | [place], [place] | | | | | [address] | | + + + + + | Ellie Vang | ECON | Unknown | | + + + + + Care Team Providers + +------+ + | Care Lens Blocker Name | Role | Phone | + +------+ + | Kenyatta Cardenas MD | PCP | | + +------+ + Encounter Details +--------+ + + + + | Date | Type | Department | Care Team | Description | +--------+ + + + + | 03/02/ | Dye Lab Technician | Digestive Health | Keren Allen, | | | 2019 | | Center at [facility] [address] | AGACNP [address] | | | | | [address] | Ave [facility] [place] | | | | | Mailcode: [place] | [address] | | | | | for Health and | | | | | | [facility] 2 | | | | | | [place], [place] | | | | | | [address] | | | | | | | [...] [address] | | | | | | [place], [place] | | | | | | [address] | | | | | | [phone] | | | | | | | | +--------+---------+ + + + documented as of this encounter Visit Diagnoses Not on filedocumented in this encounter"
--- OUTSIDE RECORDS SUMMARY | ~2019-12-02 | XMS | Encounter Summary ---
Demographics + + + | Address | [address] | | | [place] [address] | + + + | Home Phone | | + + + | Preferred Language | Unknown | + + + | Marital Status | | + + + | Holiness Affiliation | Unknown | + + + | Race | Unknown | + + + | Ethnic Group | Unknown | + + + Author + + + | Author | [facility] | | | and Jeffana | + + + | Organization | [facility] | | | and Jeffana [...] Team Providers + +------+ + | Care Turkish Rubber Name | Role | Phone | + +------+ + PCP | Unavailable | + +------+ + Encounter Details +--------+ + + + + | Date | Type | Department | Care Team | Description | +--------+ + + + + | 11/04/ | Orders Only | [facility] | Conversion | | | 2017 | | NEPHROLOGY JESUS | Transaction, | | | | | [address] | Provider Unknown | | | | | [address] | | | | | | [address] | (Fax) | | | | | [phone] | | | +--------+ + + + [...] RICHEY | | | | | | [place] [address] | | | | | | [phone] | | | | | | | [...]
--- OUTSIDE RECORDS SUMMARY | ~2019-12-02 | XMS | Encounter Summary ---
Demographics + + + | Address | [address] | | | [place] [address] | + + + | Home Phone | | + + + | Preferred Language | Unknown | + + + | Marital Status | | + + + | Holiness Affiliation | Unknown | + + + | Race | Unknown | + + + | Ethnic Group | Unknown | + + + Author + + + | Author | [facility] | | | and Jeffana | + + + | Organization | [facility] | [...] Team Providers + +------+ + | Care Elementary School Principal Name | Role | Phone | + +------+ + PCP | Unavailable | + +------+ + Encounter Details +--------+ + + + + | Date | Type | Department | Care Team | Description | +--------+ + + + + | 12/07/ | Orders Only | [facility] | Conversion | | | 2019 | | NEPHROLOGY JESUS | Transaction, | | | | | [address] | Provider Unknown | | | | | [address] | | | | | | [address] | (Fax) | | | | | [phone] | | | +--------+ + + + [...] RICHEY | | | | | | [place] [address] | | | | | | [phone] | | | | | | | [...] | | | LAB | | | [place] | | | | | + +-------+ [...]
--- OUTSIDE RECORDS SUMMARY | ~2019-12-02 | XMS | Encounter Summary ---
Demographics + + + | Address | [address] | | | [place] [address] | + + + | Home Phone [...] [place], [place] | | | | | [address] | | + + + + + | Ellie Vang | ECON | Unknown | | + + + + + Care Team Providers + +------+ + | Care Safety And Health Manager Name | Role | Phone | + +------+ + | Fadi Goodrich DO | PCP | | + +------+ + Encounter Details +--------+------+ + + + | Date | Type | Department | Care Team | Description | +--------+------+ + + + | 11/28/ | Lab | Laboratory at [facility] | | Essential | | 2017 | | [address] | | hypertension; Right | | | | [place], [place] | | heart failure (HCC); | | | | [address] | | Type 2 diabetes | | | | [phone] | | mellitus without | | | [...] | 2019 | Visit | | [address] | | | | | | [place], [place] | | | | | | [address] | | | | | | [phone] | | | | | | | [...] | | use of insulin ([facility]) | | + +--------+ + [...] | | use of insulin ([facility]) | | + +--------+ + + + | TSH | Routin | 11/28/2016 | Essential | Results for this | | | e | 10:53 AM | hypertension Right | procedure are in the | | | | PDT | heart failure ([facility]) | results section. | | [...] | | | PDT | heart failure ([facility]) | results section. | | | | | Type 2 diabetes | | | | | | mellitus without | | | | | | complication, with | | | | | | long-term current | | | | | | use of insulin ([facility]) | | + +--------+ + [...] | + + + + + | [facility] | [address] | [place] [address] | | | SERVICES, CORE | CLARENCE [...] | + + + + + | [facility] | [address] [facility] | [place], [place] | | | SERVICES, LIPID | [address] | [address] | | + + + + + [...] glycated albumin should be considered for monitoring terminal block assembler | LABORATORY | | glycemic control in [...] + + + | [facility] | [address] | [place] [address] | | | SERVICES, SPECIAL | CLARENCE [...] | | | LABORATORY | | | MAURITIAN | | | SERVICES, | | | [...] | + + + + + | [facility] | [address] | [place] [address] | | | CLAIRE, LYDIA | CLARENCE [...]
--- OUTSIDE RECORDS SUMMARY | ~2019-12-02 | XMS | Encounter Summary ---
Demographics + + + | Address | [address] | | | [place] [address] | + + + | Home Phone [...] | Organization | [facility] | [...] Providers + +------+ + | Care Java Programmer Analyst Name | Role | Phone [...] | specified | MD [address] | PROGRAM PARAPROFESSIONAL [address] | | | | | diseases of | [address] | [place], [place] | | | | | liver | [place], | [address] | | | | | Procedures | [place] | [place] | | | | | office visit | [address] | [address] Phone: | | | | | | Phone: | [phone] | | | | | | [phone] | Fax: | | | | | | Fax: | [phone] | | | | | | [phone] | | +--------+--------+ + + + + [...] | [address] [place] | [place], [place] [address] | Dx); History of | | | | [address], [place] | [place], [place] | Frandy-en-Y gastric | | | | [address] | [address] | bypass; Itching; | | | | [phone] | | Diarrhea, | | | | [...] en Y gastric bypass done 03/03/2018 at [facility]. She reports that approximately 3 months [...] well. She is scheduled to see her psychiatric surgeons within the next 2 weeks. She [...] right ventricular diastolic dysfunction (HCC) 10/26/2015 Overview: [facility] Last Assessment & Plan: Patient with [...] o besity Pickwickian syndrome Recent admission to [facility] for 100lb weight gain- DC on [...] w Diabetes mellitus type 2 without retinopathy ([facility]) 04/14/2013 Diabetes mellitus with insulin therapy ([facility]) 12/27/2014 DM (diabetes mellitus) ([facility]) 05/09/2016 Overview: A1c 5.29 Aug 2014 [...] with morbid obesity, she is enrolled in [facility] bariatric program. She has lost [...] obesity (HCC) 06/16/2013 Last Assessment & Plan: [facility] Bariatric Program, has lost 50lbs. STEFANO (iron deficiency anemia) 02/03/2019 Overview: Presumed due to menses. Venofer 200 qd x 30 October 2015 [facility] Last Assessment & P sharon: Hgb [...] She is to follow-up with surgeons at [facility] as planned. Patient is to call [...] F | | | | | | [place] [address] | | | | | | [phone] | | | | | | | [...]
--- OUTSIDE RECORDS SUMMARY | ~2019-12-02 | XMS | Encounter Summary ---
Demographics + + + | Address | [address] | | | [place] [address] | + + + | Home Phone [...] [place], [place] | | | | | [address] | | + + + + + | Ellie Vang | ECON | Unknown | | + + + + + Care Team Providers + +------+ + | Care Coordinator Of Rehabilitation Services Name | Role | Phone | [...] [address] | | | | | [place], [place] | [address] | | | 03/03/ | | [address] | [place], [place] | | | 2014 | | [phone] | [address] | | | | | | [phone] | | | | | | | [...] port site who was transferre d to [facility] for concern of an [...] mouth once daily. , Historical Med CALCIUM CRB&DPT-X1-AMS66-GENIS ORAL Take 1 tablet by mouth two [...] 10:40 AM Randell Franks Cardiology Preventive at [facility] [phone] Cardiology 04/09/2015 1:00 PM Egs Ppv Tra Trauma Emergency General Surgery at [facility] [phone] [facility] Outstanding labs/studies: None Discharging Physician: GABO LANGSTON MD Attending Physician: Dr. Cantu PCP: Fadi Goodrich DO Signed: GABO LANGSTON MD Pager #[phone] Surgical Database Coordinator [facility] Associated attestation - Tye Carrillo DO - 03/12/2015 9:12 AM PDTAttending: I discussed this patient with the resident and agree with the assessment and plan as outlin ed in this note and participated in the planning of care. Tye Carrillo DO, MBA, FACS Division of Trauma, Critical Care & Acute Care Surgery [facility] [phone] documented in this encounter Medications at Time of Discharge + + + +---------+--------+ + | Medication | Sig | Dispensed | Refills | Start | End Date | | | | | | Date | | + + + +---------+--------+ + | CALCIUM | Take 2 tablets by | | 0 | | | | CRB&VAW-Z7-BOI24-GEN | mouth two times | | | [...] be differ ent from the original. [facility] DEPARTMENT OF SURGERY EMERGENCY GENERAL SURGERY Division [...] obesity with known ventral hernias transferred to [facility] for surgical managem ent of ventral hernia, now s/p repair. Post surgical pain: -patient ready for d/c, discussed f/u. Patient lives far away and has other appointments at [facility]. Will attempt to coordinate appointments. Discharge Plan: D/c today GABO LANGSTON MD Pager #[phone] Surgical Database Coordinator [facility] Salomón William Md - 03/02/2015 1:12 PM PDT [facility] DEPARTMENT OF SURGERY EMERGENCY GENERAL SURGERY Division of Trauma and Critical Care Attending Physician: Shahid Cantu MD Progress Note Note Date: 03/02/2015 Admission Date: 2015 DYLAN ROMERO, Hospital Day #2 40 F PMH morbid obesity (BMI 71 today), DM2, depression, GERD, h/o stroke at age 18, and kn own ventral hernias transferred to [facility] for surgical treatment of [...] obesity with known ventral hernias transferred to [facility] for surgical managem ent [...] will be robel ing her home to [place], [place]. CALVIN ROMERO MD PGY-1 Anesthesiology Pager: [phone] [facility] A [address] [facility] [address] arthik Gonzalez MD - 03/02/2015 8:26 AM [id number] Calvin William Md - 03/01/2015 5:34 PM PDT Brief Post Operative Note: 40 F PMH morbid obesity (BMI 71 today), DM2, depression, GERD, h/o stroke at age 18, and kn own ventral hernias transferred to [facility] for surgical treatment of [...] control CALVIN ROMERO MD PGY-1 Anesthesiology Pager: [phone] signed by Calvin Romero Md at 03/01/2015 5:41 PM PDTdocumente d in this encounter Plan of Treatment +--------+---------+ + + + | Date | Type | Specialty | Care Team | Description | +--------+---------+ + + + | 03/15/ | Office | Cardiology | Randell Franks, | | | 2019 | Visit | | [address] | | | | | | [place], [place] | | | | | | [address] | | | | | | [phone] | | | | | | | [...] | | Attending Surgeon: Shahid Cantu MD Technician Terminal And Repeater(s): Howie Angeles MD, R5 | | Karthik [...] 03/02/2015 08:25:39DT: 03/02/2015 09:15:57Job #: | | [id number] | | | |Dr. Chris Cantu was present and scrubbed for the entirety of the case. | | | | | | | |Karthik Gonzalez MD | | | |Pursuant to federal Medicare and Medicaid regulations I was present for the entire procedur e. | | | | | | | |Shahid Cantu MD | |Inspector Fuel Hose | |Trauma, Critical Care & Acute Care Surgery | | | | | | | |Shahid Cantu MD | |TBK/MODL | | | | | | /[id number] | + ---+ CAPILLARY BLOOD GLUCOSE (NO [...] AMES | [address] | [place], [place] | | | JUST[facility] DAWN OF CARE | [address] | [address] | | | TESTS | | | [...] MARQUAM | [address] | [place], [place] | | | JUSTINE DAWN OF CARE | [address] | [address] | | | TESTS | | | [...] MARQUAM | [address] | [place], [place] | | | [place] POINT OF CARE | [address] | [address] | | | TESTS | | | [...] AMES | [address] | [place], [place] | | | [place] POINT OF CARE | [address] | [address] | | | TESTS | | | [...] MARQUAM | [address] | [place], [place] | | | JUSTINE DAWN OF CARE | [address] | [address] | | | TESTS | | | [...] YAKOVAM | [address] | [place], [place] | | | [facility] | [address] | [address] | | | TESTS | | | [...] [facility] | [address] | [place] [address] | | | SERVICES, CORE | PARK [...] | | | LABORATORY | | | PALAUAN | | | SERVICES, | | | [...] + | [facility] | [address] | [place] [address] | | | SERVICES, CORE | CLARENCE [...] MARQUAM | [address] | [place], [place] | | | [place] POINT OF CARE | [address] | [address] | | | TESTS | | | [...] MARQUAM | [address] | [place], [place] | | | [place] POINT OF CARE | [address] | [address] | | | TESTS | | | [...] + + + | [facility] | [address] | [place], [place] | | | [place] POINT OF CARE | [address] | [address] | | | TESTS | | | [...] MARQUAM | [address] | [place], [place] | | | [place] POINT OF CARE | [address] | [address] | | | TESTS | | | [...] | [facility] | [address] | [place], [place] | | | [place] POINT OF CARE | [address] | [address] | | | TESTS | | | [...] + | [facility] | [address] | [place] [address] | | | SERVICES, CORE | CLARENCE [...] NKECHI AMES | [address] | [place], [place] | | | JUSTINE DAWN OF CARE | [address] | [address] | | | TESTS | | | [...] PDT | | | | | Starting [facility] 03/01/15 at 1056, | | | | | | | Until [facility] 03/01/15 at 1436, | | | | [...] | | First dose on [facility] 03/01/15 at 0900, | | AM PDT [...] | | | | dose on [facility] 03/01/15 at 0900, Until | | AM [...] | | | 0923, Until 03/03/15 at 2045, | | | [...] | | DAILY, First dose on Jasmyne 03/01/15 | | AM PDT | [...]
--- OUTSIDE RECORDS SUMMARY | ~2019-12-02 | XMS | Encounter Summary ---
Demographics + + + | Address | [address] | | | [place] [address] | + + + | Home Phone [...] [place], [place] | | | | | [address] | | + + + + + | Ellie Vang | ECON | Unknown | | + + + + + Care Team Providers + +------+ + | Care Two Way Radio Technician Name | Role | Phone | [...] Center at [facility] [address] | MD [address] [facility] | | | | | [address] | [address] | | | | | Mailcode: [place] | [place], [place] | | | | | [facility] and | [address] | | | | | [facility] 2 | [phone] | | | | | [place], [place] | | | | | | [address] | | | | | | [phone] | | | +--------+ + + + [...] [address] | | | | | | [place] | | | | | | [address] | | | | | | [phone] | | | | | | | | +--------+---------+ + + + documented as of this encounter Visit Diagnoses Not on filedocumented in this encounter"
--- OUTSIDE RECORDS SUMMARY | ~2019-12-02 | XMS | Encounter Summary ---
Demographics + + + | Address | [address] | | | [place] [address] | + + + | Home Phone [...] [place], [place] | | | | | [address] | | + + + + + | Ellie Vang | ECON | Unknown | | + + + + + Care Team Providers + +------+ + | Care Director Strategy Name | Role | Phone | + [...] 2014 | | Center at [facility] [address] | ACNP [address] | | | | | [address] | Ave [place], [place] | | | | | Mailcode: [place] | [address] | | | | | for Health and | | | | | | [place] [address] | | | | | | [place], [place] | | | | | | [address] | | | | | | [phone] | | | +--------+ + + + [...] [address] | | | | | | [place], [place] | | | | | | [address] | | | | | | [phone] | | | | | | | | +--------+---------+ + + + documented as of this encounter Visit Diagnoses Not on filedocumented in this encounter"
--- OUTSIDE RECORDS SUMMARY | ~2019-12-02 | XMS | Encounter Summary ---
Demographics + + + | Address | [address] | | | [place] [address] | + + + | Home Phone [...] [place], [place] | | | | | [address] | | + + + + + | Ellie Vang | ECON | Unknown | | + + + + + Care Team Providers + +------+ + | Care Prosthodontist/Owner Name | Role | Phone | + +------+ + | Fadi Goodrich DO | PCP | | + +------+ + Encounter Details +--------+ + + + + | Date | Type | Department | Care Team | Description | +--------+ + + + + | 10/19/ | Abstract | Digestive Health | Clinic, Surgery | | | 2017 | | [place] at [facility] [address] | | | | | | [address] | | | | | | Mailcode: [place] | | | | | | [facility] Health and | | | | | | [facility] 2 | | | | | | [place], [place] | | | | | | [address] | | | | | | [phone] | | | +--------+ + + + [...] [address] | | | | | | [place], [place] | | | | | | [address] | | | | | | [phone] | | | | | | | | +--------+---------+ + + + documented as of this encounter Visit Diagnoses Not on filedocumented in this encounter"
--- OUTSIDE RECORDS SUMMARY | ~2019-12-02 | XMS | Encounter Summary ---
Demographics + + + | Address | [address] | | | [place] [address] | + + + | Home Phone [...] + | Katalina Padilla | ECON | [address] | | | | | [place], [place] | | | | | [address] | | + + + + + | Ellie Vang | ECON | Unknown | | + + + + + Care Team Providers + +------+ + | Care Cable Engineer Outside Plant Name | Role | Phone | + [...] + | 03/03/ | Documentati | [facility] | Lab, Gi Procedure | Medical Records | | 2019 | on | [address] | | Review | | | | [address] Mailcode: | | | | | | OC[address] [facility] | | | | | | Health and Healing, | | | | | | Building [address] | | | | | | [place], [place] | | | | | | [address] | | | | | | [phone] | | | +--------+ + + + [...] [place] | | | | | | [address] | | | | | | [phone] | | | | | | | | +--------+---------+ + + + documented as of this encounter Visit Diagnoses Not on filedocumented in this encounter"
--- OUTSIDE RECORDS SUMMARY | ~2019-12-02 | XMS | Encounter Summary ---
Demographics + + + | Address | [address] | | | [place] [address] | + + + | Home Phone [...] [place], [place] | | | | | [address] | | + + + + + | Ellie Vang | ECON | Unknown | | + + + + + Care Team Providers + +------+ + | Care Customer Leader Name | Role | Phone | [...] Order | [address] | [address] [facility] [place] | | | | | [address] | [address] | | | | | [address], | [phone] | | | | | 4th floor [place], | | | | | | [place] [address] | | | | | | [phone] | | | +--------+ + + + [...] [address] | | | | | | [facility] [place] | | | | | | [address] | | | | | | [phone] | | | | | | | | +--------+---------+ + + + documented as of this encounter Results EGD (06/23/2018 3:58 PM PST) + + | Specimen | + + | | + + + +--------- -----+ | Narrative | Performe d At | + +--------- -----+ | MRN: | [facility] | | [id number] Date: 06/23/2018Patient Name: Elzbieta Curtis #: | ENDOSCOP Y | | [id number] of : 1975CSN: [id number] Type: | | | AmbulatoryRoom: SORProcedure: Upper GI | | | endoscopyIndications: Nausea with vomiting, Status post | | | Afsi-td-CFhpywnjkr: KALEB MILES MD (Doctor), JOSE | | | NASIMA, Magneto Specialist | | | (Magneto Specialist)Referring MD: DANIELLE GARCÍAPRequesting | | | Provider: [...] | | | The Olympus [id number] Gastroscope #[id number] was | | | introduced through the [...] endoscope without resistance. The | | | iptyr-hx-azieupc limb was characterized by healthy appearing | [...] Initiated On: | | | 06/23/2018 3:58 [facility] Letter to: RADHA MICHAEL, DO | [...] + + | Performing | Address | City[facility] | Phone Number | | Organization [...]
--- OUTSIDE RECORDS SUMMARY | ~2019-12-02 | XMS | Encounter Summary ---
Demographics + + + | Address | [address] | | | [place] [address] | + + + | Home Phone [...] [place], [place] | | | | | [address] | | + + + + + | Ellie Vang | ECON | Unknown | | + + + + + Care Team Providers + +------+ + | Care Leadership Recruiter Name | Role | Phone | [...] Pre-operative | | 2019 | cheduled | [facility] at | | evaluation | | | | [facility] | | | | | | [address] | | | | | | Mail Code: OC8PM | | | | | | [facility] | | | | | | and Healing, | | | | | | Building [address] | | | | | | [place], [place] | | | | | | [address] | | | | | | [phone] | | | +--------+ + + + [...] not have access to check in ti [facility], and we encourage you to contact [...] MG TABLET ATENOLOL 50 MG TABLET CALCIUM CRB&DRD-C3-VRF77-GENIS ORAL CYANOCOBALAMIN (VIT B-12) 1,000 MCG TABLET [...] as Uber/Lyft), or public transportation. An Uber/Lyft/local [place] truck driver does not count as the [...] it is after office hours, call the [facility] grind operator at [phone] and ask them to page him or h er. documented in this encounter Plan of Treatment +--------+---------+ + + + | Date | Type | Specialty | Care Team | Description | +--------+---------+ + + + | 03/15/ | Office | Cardiology | Randell Franks, | | | 2019 | Visit | | [address] | | | | | | [place], [place] | | | | | | [address] | | | | | | [phone] | | | | | | | | +--------+---------+ + + + documented as of this encounter Visit Diagnoses Not on filedocumented in this encounter
--- OUTSIDE RECORDS SUMMARY | ~2019-12-02 | XMS | Encounter Summary ---
Demographics + + + | Address | [address] | | | [place] [address] | + + + | Home Phone [...] [place], [place] | | | | | [address] | | + + + + + | Ellie Vang | ECON | Unknown | | + + + + + Care Team Providers + +------+ + | Care Seed Collector Name | Role | Phone | + +------+ + | Kenyatta Cardenas MD | PCP | | + +------+ + Encounter Details +--------+ + + + + | Date | Type | Department | Care Team | Description | +--------+ + + + + | 06/06/ | Telephone | Digestive Health | Chilo | | | 2019 | | [place] at [facility] [address] | MD Jorje [address] | | | | | [address] | [address] | | | | | Mailcode: Center | [place], [place] | | | | | [facility] Health and | [address] | | | | | [facility] 2 | [phone] | | | | | [place], [place] | | | | | | [address] | | | | | | [phone] | | | +--------+ + + + [...] [address] | | | | | | [place], [place] | | | | | | [address] | | | | | | [phone] | | | | | | | | +--------+---------+ + + + documented as of this encounter Visit Diagnoses Not on filedocumented in this encounter"
--- OUTSIDE RECORDS SUMMARY | ~2019-12-02 | XMS | Encounter Summary ---
Demographics + + + | Address | [address] | | | [place] [address] | + + + | Home Phone [...] | Organization | [facility] | | [...] Team Providers + +------+ + | Care Brazing Furnace Feeder Name | Role | Phone | [...] Encounter | [address] | [place] [address] [place] | | | | | [address] | [address] | | | | | [place], [place] | [place] [address] | | | | | [address] | [phone] | | | | | [phone] | | | +--------+ + + + [...] | | | | | [place] [address] | | | | | | [phone] | | | | | | | | +--------+---------+ + + + documented as of this encounter Visit Diagnoses Not on filedocumented in this encounter"
--- OUTSIDE RECORDS SUMMARY | ~2019-12-02 | XMS | Encounter Summary ---
Demographics + + + | Address | [address] | | | [place] [address] | + + + | Home Phone [...] [place], [place] | | | | | [address] | | + + + + + | Ellie Vang | ECON | Unknown | | + + + + + Care Team Providers + +------+ + | Care Tour Conductor Name | Role | Phone | + [...] | | 2013 | | Center at [facility] [address] | [address] | | | | | [address] | [facility] 350 | | | | | Mailcode: Center | [place], [place] | | | | | for Health and | [address] | | | | | [facility] 2 | [phone] | | | | | [place], [place] | | | | | | [address] | | | | | | [phone] | | | +--------+ + + + [...] | | | | | | [place], [place] | | | | | | [address] | | | | | | [phone] | | | | | | | | +--------+---------+ + + + documented as of this encounter Visit Diagnoses Not on filedocumented in this encounter"
--- OUTSIDE RECORDS SUMMARY | ~2019-12-02 | XMS | Encounter Summary ---
Demographics + + + | Address | [address] | | | [place] [address] | + + + | Home Phone [...] [place], [place] | | | | | [address] | | + + + + + | Ellie Vang | ECON | Unknown | | + + + + + Care Team Providers + +------+ + | Care Trail Construction Worker Name | Role | Phone | + +------+ + | Fadi Goodrich DO | PCP | | + +------+ + Encounter Details +--------+ + + + + | Date | Type | Department | Care Team | Description | +--------+ + + + + | 02/13/ | Telephone | Cardiology | Randell Franks, | | | 2016 | | Preventive at [facility] | MD [address] | | | | | [address] | [facility] [place] | | | | | Mailcode: [facility] | [address] | | | | | [facility] | [phone] | | | | | and Healing, | | | | | | Building [address] | | | | | | [facility] [place] | | | | | | [address] | | | | | | [phone] | | | +--------+ + + + [...] | | 2019 | Visit | | [address] | | | | | | [place], [place] | | | | | | [address] | | | | | | [phone] | | | | | | | | +--------+---------+ + + + documented as of this encounter Visit Diagnoses Not on filedocumented in this encounter"
--- OUTSIDE RECORDS SUMMARY | ~2019-12-02 | XMS | Encounter Summary ---
Demographics + + + | Address | [address] | | | [place] [address] | + + + | Home Phone [...] + | Katalina Padilla | ECON | [address] | | | | | [place], [place] | | | | | [address] | | + + + + + | Ellie Vang | ECON | Unknown | | + + + + + Care Team Providers + +------+ + | Care Investment Trader Name | Role | Phone | + +------+ + | Fadi Goodrich DO | PCP | | + +------+ + Encounter Details +--------+ + + + + | Date | Type | Department | Care Team | Description | +--------+ + + + + | 11/06/ | Abstract | Digestive Health | Shereen Georges, | | | 2015 | | Center at [facility] [address] | ACNP [address] | | | | | [address] | [place], [place] | | | | | Mailcode: [place] | [address] | | | | | for Health and | | | | | | [facility] 2 | | | | | | [facility] [place] | | | | | | [address] | | | | | | | [...] | | 2019 | Visit | | [address] | | | | | | [place], [place] | | | | | | [address] | | | | | | [phone] | | | | | | | | +--------+---------+ + + + documented as of this encounter Visit Diagnoses Not on filedocumented in this encounter"
--- OUTSIDE RECORDS SUMMARY | ~2019-12-02 | XMS | Encounter Summary ---
Demographics + + + | Address | [address] | | | [place] [address] | + + + | Home Phone [...] + | Katalina Padilla | ECON | [address] | | | | | [place], [place] | | | | | [address] | | + + + + + | Ellie Vang | ECON | Unknown | | + + + + + Care Team Providers + +------+ + | Care Weather Strip Installer Name | Role | Phone | [...] | | | | | (HCC) | [place], [place] | Hospital, | | | | | Procedures | [address] | 10th Floor | | | | | CT ABDOMEN & | Phone: | [place], [place] | | | | | PELVIS WWO | | [address] | | | | | IV CONTRAST | Fax: | Phone: | | | | | [address] | [phone] | [phone] | | | | | ABDOMEN&PELV | | Fax: | | | | | IS | | [phone] | | | | | W/CONTRAST | [...] | | | | | | | [facility] | | | | | | | Health and | | | | | | | Healing, | | | | | | | Building 2 | | | | | | | [place], [place] | | | | | | | [address] | | | | | | | Phone: | | | | | | | [phone] | | | | | | | Fax: | | | | | | | [phone] | +--------+--------+ + + + + Encounter [...] | | [address] | Ave [place], [place] | obesity (HCC) | | | | Mailcode: [place] | [address] | | | | | [facility] Health and | [phone] | | | | | [facility] 2 | | | | | | [place], [place] | | | | | | [address] | | | | | | [phone] | | | +--------+---------+ + + + [...] this encounter Patient Instructions Patient Instructions Shereen Pnito ACNP - 10/02/2014 11:23 AM PDTWith your apron, up in th e air, Use a engineering department chair.... And get it really dry. Then use corn starch ..... Then use medicated powder... Please go to the 3rd floor for the study... [place] [address] documented in this encounter Progress Notes Shereen Pinto ACNP - 10/02/2014 11:14 AM PDTFormatting of this note might be different fro m the original. BARIATRIC INITIAL VISIT Provider: Shereen Pinto DNP, ACNP, WORK COUNSELOR Referring Provider: Dr. Goodrich Reason for Requested [...] with the surgeon. Shereen Pinto DNP, ACNP, WORK COUNSELOR Nurse Practitioner for Bariatric Surgery [facility] | [address] | [place], [place] | [address] | Potential Contraindications to Bariatric Surgery Age [...] other providers does not guarantee that the [facility] Bariatric Surger y program will deem [...] [address] | | | | | | [place], [place] | | | | | | [address] | | | | | | [phone] | | | | | | | [...] | | + +---------+ + + | [facility] DEPARTMENT OF | | | | | RADIOLOGY | | | | + +---------+ + + documented in this encounter Visit Diagnoses + + | Diagnosis | + + | Abdominal pain - Primary | + + | Morbid obesity (HCC) Morbid obesity | + + documented in this encounter
--- OUTSIDE RECORDS SUMMARY | ~2019-12-02 | XMS | Encounter Summary ---
[...] [place], [place] | | | | | [address] | | + + + + + | Ellie Vang | ECON | Unknown | | + + + + + Care Team Providers + +------+ + | Care Blocker And Polisher Gold Wheel Name | Role | Phone | + [...] | | | | | [facility] and | [place], [place] | | | | | | Healing, | [address] | | | | | | Building 2 | Phone: | | | | | | [place], [place] | [phone] | | | | | | [address] | Fax: | | | | | | Phone: | [phone] | | | | | | [phone] | | | | | | | Fax: | | | | | | | [phone] | | +--------+--------+ + + + + [...] | | | | Health and | [place], [place] | | | | | | Healing, | [address] | | | | | | Building 2 | Phone: | | | | | | [place], [place] | [phone] | | | | | | [address] | Fax: | | | | | | Phone: | [phone] | | | | | | [phone] | | | | | | | Fax: | | | | | | | [phone] | | +--------+--------+ + + + + Encounter Details +--------+ + + + + | Date | Type | Department | Care Team | Description | +--------+ + + + + | 10/07/ | Hospital | Radiology/Imaging | | | | 2012 | Encounter | Lab at [facility] [address] | | | | | [address] Mailcode: | | | | | | [facility] | | | | | | Health and Healing, | | | | | | Building 1, 3rd | | | | | | Floor [place], [place] | | | | | | [address] | | | | | | [phone] | | | +--------+ + + + [...] [address] | | | | | | [place], [place] | | | | | | [address] | | | | | | [phone] | | | | | | | [...] | + +---------+ + + | [facility] DEPARTMENT OF | | | | | [...] + + | NKECHI VALDEZJUSTINE | [address] [facility] | [place] [address] | | | OF CARE TESTS | | | | + + + + + documented in this encounter Visit Diagnoses + + | Diagnosis | + + | Hernia Hernia of unspecified site of abdominal cavity without mention of obstruction | | or gangrene | + + documented in this encounter"
--- OUTSIDE RECORDS SUMMARY | ~2019-12-02 | XMS | Encounter Summary ---
Demographics + + + | Address | [address] | | | [place] [address] | + + + | Home Phone [...] [place], [place] | | | | | [address] | | + + + + + | Ellie Vang | ECON | Unknown | | + + + + + Care Team Providers + +------+ + | Care Application Development Director Name | Role | Phone | [...] Diabetes & | Morbid | Kathy M, BONUS CLERK | [address] | | | | Metabolism | obesity | [address] | Pavilion | | | | | (HCC) | [address], | Loop | | | | | Procedures | [address] | Physician's | | | | | CONSULT TO | [facility] [place] | Pavilion | | | | | ENDO | [address] | Physician's | | | | | [address] | Phone: | Pavilion | | | | | [address] | [phone] | [place], [place] | | | | | | Fax: | [address] | | | | | | [phone] | Phone: | | | | | | | [phone] | | | | | | | Fax: | | | | | | | [phone] | +--------+--------+ + + + + Encounter [...] | | | Center at Physicians | [place], [place] | ([facility]) (Primary Dx); | | | | [address] | [address] | Type 2 diabetes | | | | [address] | [phone] | mellitus ([facility]); [address] | | | | Physician's Pavilion | | (obstructive sleep | | | | Physician's | | apnea); Morbid | | | | Pavilion [place], | | obesity ([facility]); | | | | [place] [address] | | Edema; GERD | | | | [phone] | | (gastroesophageal | | | | [...] Goodrich DO Referring physician: Kathy Feldman, KALYAN [address] [place] [address] HPI: Dylan is a 38 y.o. female [...] 9 CREATININE PLASMA (LAB) 0.71 EGFR - SOUTH KOREAN >60 EGFR NON -SOU[place]OREAN >60 GLUCOSE, PLASMA (LAB) 113 (H) CALCIUM, [...] | | 2019 | Visit | | [address] | | | | | | [place], [place] | | | | | | [address] | | | | | | [phone] | | | | | | | [...] | | | PDT | type 2) ([facility]) | results section. | + +--------+ + + + | CA COLLECTION | Routin | 04/14/2013 | DM type 2 | | | CAPILLARY BLOOD | e | 11:08 AM | (diabetes mellitus, | | | SPECIMEN | | PDT | type 2) (HCC) | | + +--------+ + + [...] + + + + + | KALEYORIN Gil LANEYKAMILLA | [address] [facility] [address] | [place], [place] | | | JUSTINE DAWN OF JAKY | [address] | [address] | | | TESTS | | | [...]
--- OUTSIDE RECORDS SUMMARY | ~2019-12-02 | XMS | Encounter Summary ---
Demographics + + + | Address | [address] | | | [place] [address] | + + + | Home Phone [...] [place], [place] | | | | | [address] | | + + + + + | Ellie Vang | ECON | Unknown | | + + + + + Care Team Providers + +------+ + | Care Drum Cleaner Name | Role | Phone | [...] | 2012 | | Center at [facility] [address] | MD [address] | | | | | [address] | [facility] | | | | | Mailcode: [place] | [place], [place] | | | | | [facility] and | [address] | | | | | [facility] 2 | [phone] | | | | | [place], [place] | | | | | | [address] | | | | | | [phone] | | | +--------+ + + + [...] [address] | | | | | | [place], [place] | | | | | | [address] | | | | | | [phone] | | | | | | | | +--------+---------+ + + + documented as of this encounter Visit Diagnoses Not on filedocumented in this encounter"
--- OUTSIDE RECORDS SUMMARY | ~2019-12-02 | XMS | Encounter Summary ---
Demographics + + + | Address | [address] | | | [place] [address] | + + + | Home Phone | | + + + | Preferred Language | Unknown | + + + | Marital Status | | + + + | Episcopalian Affiliation | Unknown | + + + | Race | Unknown | + + + | Ethnic Group | Unknown | + + + Author + + + | Author | [facility] | | | and Jeffana | + + + | Organization | [facility] | | | and [...] Team Providers + +------+ + | Care Multicultural Manager Name | Role | Phone | [...] | Services | Disease | Chronic | [facility], | [facility] | | | Required | | diastolic | HADOOP DEVELOPER [address] | SLEEP | | | | | heart | PAYAL [place] | DISORDERS LAB | | | | | failure | DMITRI F | [address] | | | | | (HCC) | [place], [place] | [address] | | | | | History of | [address] | [place], [place] | | | | | sinus | Phone: | [address] | | | | | tachycardia | [phone] | Phone: | | | | | History of | Fax: | [phone] | | | | | bariatric | [phone] | Fax: | | | | | surgery | | [phone] | | | | | Sleep apnea [...] + + | 04/28/ | Office | [facility] | Sulema Altamirano | Chronic diastolic | | 2019 | Visit | CARDIOLOGY [place] | [address] | heart failure (HCC) | | | | [address] | [address] [address] | (Primary Dx); | | | | [address] | [place] [address] | History of sinus | | | | [place], [place] | [phone] | tachycardia; History | | | | [address] | | of stroke; HTN, | | | | [phone] | | goal below 130/80; | | [...] have referred you to Dr. Rascon at [place] [facility] , call [phone] for an appointment next week I made [...] dysfunction with previous dysfunctional RV treated at [facility] with diuresis and hospitalization for one month., sleep apnea treated with BiPAP, t ype II diabetes, hypothyroidism, morbid obesity with alveolar hypoventilation, Frandy-en-Y ga stric bypass surgery 02/2018, osteoarthritis,DVT and PE 2016, hypokalemia and hyperuricemia which is being followed by mercerizer machine operator Dr. Fu, and SELINA Escobar. Her [...] will be seeing a surgeon a barron [facility] on May 05. In the meantime she has had difficulty with dehydration and keeping f ood down, and she receives IV fluids through PICC line 3 times per week and has also been tr eated with Phenergan. Unfortunately her PCP, Dr. Cardenas is still on maternity leave, and she has been seen by o [facility] providers who are covering for her. She reports today that she never heard from the [place] [facility] providers to her sup posed [...] surgery, and weight down 123 pounds since [facility] 2017 when weighed 394 lbs. She [...] hypothyroidism,followed by Dr. Franks, endocrin ologist at [facility]) . Denies excessive thirst or hunger. Psychiatric/Behavioral: [...] knee pain and hernia pain Lives in [facility] her mother who smokes. . Sister is before and after school daycare worker. Grandchildren ages 4 and 7 live with he r daughter and son-in-law. Disabled , on disability .01/24/2019: working with [employer] to get her own place. Outpatient Medications [...] film Suboxone 2 mg-0.5 mg sublingual film Rvjxcwe-Akzfpuybi-Nzktyxi D (CITRACAL CALCIUM+D PO) Take 2 tablets [...] Pen Needle (NOVOFINE) 32G X 6 MM [facility] Novofine 32 32 gauge x 1/4" needle [...] monohydrate/macrocrystals 100 m g capsule nystatin (NYSTATIN) 544552 UNIT/GM powder Nyamyc 100,000 unit/gram topical powder [...] Take 30 mg by mouth Daily. thyroid (SEMICONDUCTOR BONDER THYROID) 30 mg tablet SEMICONDUCTOR BONDER Thyroid 30 mg tablet TAKE ONE TABLET [...] Left lower extremity DVT, presumed PE: 10/2015 [facility]. treated with heparin drip and Coumadin 10 in hospital, with Coumadin 6 months as outpatient, ASA 81 mg continued Venous US: right leg, 04/28/2016: No evidence of DVT. EKG EKG 10/27: ([facility]) Normal sinus rhythm. Normal EKG. Rate 93 bpm, NV 172 ms, QRS 90 ms, QTC 465 ms personally reviewed by me in the office today) EK02/05: Sinus tachycardia, otherwise normal. Rate 160 bpm, NV 174 ms, QRS 74 ms, QTC 451 ms (personally reviewed by me in the office today and no significant change seen fro m EKG done in October 2016 except for faster heart rate) EK04/26/2018: Normal sinus rhythm, rate 74 bpm, NV 182 ms, QRS 96 ms, QTC 472 ms, tracin g personally reviewed by me, and compared to previous EKG, heart rate is now better controll ed, otherwise similar morphology EK04/28/2019: Normal sinus rhythm, right axis. Rate 74 bpm, NV 170 ms, QRS 88 ms, QTC 45 [...] GFR 92, albumin 3.3. Magnesium: 1.8 Labs: 10/12/2018:([facility]) CMP: Glucose 103, BUN 9, creatinine 0.7, [...] heard from the sleep providers at the [place] [facility] in [place], so I have referred her again to Dr. Rascon at the [facility] [facility], and she ne eds [...] Placed This Encounter Procedures Ambulatory Referral to [facility] Pulmonology- Sleep study as well ECG 12 [...] past surgical history. Problem list. Maryse MARKS [facility] Cardiology 04/28/2019 docume nted in this [...] [address] | | | | | | [place] [address] | | | | | | [phone] | | | | | | | | +--------+---------+ + + + + + +--------+ + + | Name | Type | Priori | Associated Diagnoses | Order Schedule | | | | ty | | | + + +--------+ + + | Ambulatory Referral | Outpatient | Routin | Chronic diastolic | Ordered: 04/28/2019 | | to [facility] | Referral | e | heart failure [...] | | | | | by ICA Niangua Read Only, | | | | | | ICA Payal ([id number]), | | | | | | videotape editor Glen Alberto | | | | | | ([id number]) on 04/28/2019 | | | | | [...]
--- OUTSIDE RECORDS SUMMARY | ~2019-12-02 | XMS | Encounter Summary ---
Demographics + + + | Address | [address] | | | [place] [address] | + + + | Home Phone [...] + | Katalina Padilla | ECON | [address] | | | | | [place], [place] | | | | | [address] | | + + + + + | Ellie Vang | ECON | Unknown | | + + + + + Care Team Providers + +------+ + | Care Talent Management Specialist Name | Role | Phone | [...] [address] [place] [place] Mailcode: | [place], [place] | | | | | [facility] | [address] | | | | | Health and Healing, | [phone] | | | | | [address] | | | | | | Floor [facility] [place] | | | | | | [address] | | | | | | [phone] | | | +--------+ + + + [...] | | 0 | | | | [id number] | mouth two times | | | [...] [place] | | | | | | [address] | | | | | | [phone] | | | | | | | [...] + documented in this encounter Results X-RAY MOHAMUDI BRIAN CASTELLON (03/22/2019 11:04 AM PDT) + [...]
--- OUTSIDE RECORDS SUMMARY | ~2019-12-02 | XMS | Encounter Summary ---
Demographics + + + | Address | [address] | | | [place] [address] | + + + | Home Phone [...] | [facility] | [...] Team Providers + +------+ + | Care Auditing Clerk Name | Role | Phone | + +------+ + | Jorje Hill | PCP | | + +------+ + Encounter Details +--------+ + + + + | Date | Type | Department | Care Team | Description | +--------+ + + + + | 06/17/ | Telephone | [facility] | Christian Dawson, | | | 2018 | | CENTER [facility] OP | [address] | | | | | [address] | [address] | | | | | [place], [place] | [place] [address] | | | | | [address] | [phone] | | | | | [phone] | | | +--------+ + + + [...] [address] | | | | | | [place] [address] | | | | | | [phone] | | | | | | | | +--------+---------+ + + + documented as of this encounter Visit Diagnoses Not on filedocumented in this encounter"
--- OUTSIDE RECORDS SUMMARY | ~2019-12-02 | XMS | Encounter Summary ---
Demographics + + + | Address | [address] | | | [place] [address] | + + + | Home Phone [...] [place], [place] | | | | | [address] | | + + + + + | Ellie Vang | ECON | Unknown | | + + + + + Care Team Providers + +------+ + | Care Switchboard Operator Name | Role | Phone | [...] | | gastric | [address] | [place] | | | | | bypass | [place], [place] | Pavilion, 4th | | | | | Ventral | [address] | floor | | | | | hernia | Phone: | [place], [place] | | | | | without | [phone] | [phone] | | | | | obstruction | Fax: | Phone: | | | | | or gangrene | [phone] | [phone] | | | | | Mixed | | Fax: | | | | | hyperlipidem | | [phone] | | | | | ia Diabetes [...] | | | | | | | [place] UPPER GI | | | | | | | ENDOSCOPY,BI | | | | | | | [place]PSY [place] | | | | | | | [...] | | | | Mailcode: Center | [address] | Ventral hernia | | | | for Health and | [phone] | without obstruction | | | | Healing, Building 2 | | or gangrene; Mixed | | | | [place], [place] | | hyperlipidemia; | | | | [address] | | 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[phone] | | type 2 without | | [...] to POC and will call or send [employer] message if any issues. documented in this [...] tongue once daily., Disp: , Rfl: CALCIUM CRB&MZC-F4-BII34-GENIS [place]AL, Take 2 tablets by mouth two [...] less 8 [facility] Social History Social History Marital status: Single Spouse name: N/A Number of children: 1 Years of education: N/A Occupational History disabled None Social History Main Topics Smoking status: Former Smoker Smokeless tobacco: Never Used Alcohol use No Drug use: No Sexual activity: Not on file Social History Narrative Updated 11/09/15 She lives in [place] with her mother and her sister (also her caregiver) lives in an apa rtment/duplex below. She has 2 grandchildren (age 4 and 7) who live with her daughter and son-in-law Her boyfriend lives in [place] HFpEF, DM2, HTN, Sleep Apnea (unable to [...] program here and refer her to our bulk gas specialist who also has expertise in physical [...] after this visit. Ronna Clarke DNP ACNP GAS WELDING EQUIPMENT MECHANIC Bariatric Surgery Nurse Practitioner [facility] | [id number] | [place], [place] | [address] | documented in this e ncounter Plan of Treatment +--------+---------+ + + + | Date | Type | Specialty | Care Team | Description | +--------+---------+ + + + | 03/15/ | Office | Cardiology | Randell Franks, | | | 2019 | Visit | | MD [address] | | | | | | [place], [place] | | | | | | [address] | | | | | | [phone] | | | | | | | | +--------+---------+ + + + documented as of this encounter Results X-RAY MOHAMUDLuba Chang RAVINDER (06/07/2018 9:47 AM PST) + + | Specimen | + + | | + + + + + | Narrative | Performed At | + + + | EXAM: Esophagram with welder fitter arc radiograph HISTORY: RYGB 03/01/2018, | [facility] | | vomiting/pain ever since COMPARISON: 04/27/2018 CT TECHNIQUE: | RADIOLOGY VOICE | | Optical Scientist radiograph was performed. Single contrast exam of the esophagus, | RECOGNITION 2 | | gastric pouch, and gastrojejunostomy in upright positioning. | | | Radiation dose reduction technique was maximized where appropriate | | | using pulsed fluoroscopy and fluoro-store images. Fluoro Time 57 | | | second(s) FINDINGS: Optical Scientist shows stone in the upper pole of [...] Note | + + | Service Account, InSample Res In Interface - 06/07/2018 11:18 AM PST EXAM: Esophagram | | with welder fitter arc radiograph HISTORY: RYGB 03/01/2018, vomiting/pain ever since COMPARISON: | | 04/27/2018 CT TECHNIQUE: Optical Scientist radiograph was performed. Single contrast exam of the | | esophagus, gastric pouch, and gastrojejunostomy in upright positioning. Radiation dose | | reduction technique was maximized where appropriate using pulsed fluoroscopy and | | fluoro-store images. Fluoro Time 57 second(s) FINDINGS:Optical Scientist shows stone in the upper | | [...] [facility] | [address] | [place] [address] | | | SERVICES, CORE | CLARENCE [...] | [facility] | | considered for monitoring watermelon harvesting supervisor glycemic control in patients with: | LABORATORY [...] [facility] | [address] | [place] [address] | | | SERVICES, SPECIAL | PARK [...] B: | | | | | | [employer]/CSPerformed | | | | | | by [address] | | | | | | [address], [facility] | | | | | | [address] | | | | | | [phone].Prestiamoci. | | | | | | Ismael [...] [facility] | [address] | [place], [place] | | | [facility] | | [address] | | + + + + + [...] the MDRD equation recommended by the | [facility] | | National Kidney [...] [facility] | [address] | [place] [address] | | | SERVICES, CORE | PARK [...] [facility] | [address] | [place] [address] | | | SERVICES, CORE | PARK [...] [facility] | [address] | [place] [address] | | | SERVICES, CORE | PARK [...] [facility] | [address] | [place] [address] | | | SERVICES, CORE | PARK [...] | [address] [facility] | [place] [address] | | | CLAIRE, LYDIA | PARK [...] [facility] | [address] | [place] [address] | | | CLAIRE, CORE | CLARENCE [...]
--- OUTSIDE RECORDS SUMMARY | ~2019-12-02 | XMS | Encounter Summary ---
Demographics + + + | Address | [address] | | | [place] [address] | + + + | Home Phone [...] [place], [place] | | | | | [address] | | + + + + + | Ellie Vang | ECON | Unknown | | + + + + + Care Team Providers + +------+ + | Care Tile Picker Name | Role | Phone | [...] 2015 | | Center at [facility] [address] | ACNP [address] | | | | | [address] | [place], [place] | | | | | Mailcode: Kelly | [address] | | | | | for Health and | | | | | | [facility] 2 | | | | | | [facility] [place] | | | | | | [address] | | | | | | | [...] | | 2019 | Visit | | [address] | | | | | | [place], [place] | | | | | | [address] | | | | | | [phone] | | | | | | | | +--------+---------+ + + + documented as of this encounter Visit Diagnoses Not on filedocumented in this encounter"
--- OUTSIDE RECORDS SUMMARY | ~2019-12-02 | XMS | Encounter Summary ---
Demographics + + + | Address | [address] | | | [place] [address] | + + + | Home Phone [...] [place], [place] | | | | | [address] | | + + + + + | Ellie Vang | ECON | Unknown | | + + + + + Care Team Providers + +------+ + | Care Welder Fabricator Name | Role | Phone | [...] | | | | | Procedures | [place], [place] | [place], [place] | | | | | CONSULT [place] | [address] | [address] | | | | | CAR | Phone: | Phone: | | | | | PREVENTATIVE | [phone] | [phone] | | | | | [facility] - | Fax: | Fax: | | | | | LIPIDS | [phone] | [phone] | +--------+--------+ + + + + Encounter Details +--------+---------+ + + + | Date | Type | Department | Care Team | Description | +--------+---------+ + + + | 09/11/ | Office | Cardiology | Olga Lidia Montanez, | Morbid obesity with | | 2017 | Visit | Preventive at [facility] | [address] | BMI of 70 and over, | | | | [address] | [address] | adult (HCC) (Primary | | | | Mailcode: CH9A | [place], [place] | Dx) | | | | [facility] | [address] | | | | | and Healing, | | | | | | Building [address] | | | | | | [place], [place] | | | | | | [address] | | | | | | [phone] | | | +--------+---------+ + + + [...] in this encounter Patient Instructions Patient Instructions Ogla Lidia Montanez RD - 09/11/2017 2:30 PM PSTNutrition appointment, Dietitian: Olga Lidia Montanez RD, LD [facility] Bariatric department (to reschedule classes): [phone] Goals: 1. Try to stop buying Pop-Tarts 2. Replace afternoon snack (think of this as lunch) with vegetables or fruit -cucumbers, carrots, broccoli, cauliflower, etc. -try making ranch dip w/ nonfat plain yogurt (regular or Venezuelan) (or mix yogurt w/ salsa; o r chipotle hot sauce & grand ronde tribes juice) 3. Snack ideas: -fruit -vegetables (with hummus or yogurt dip) -Venezuelan yogurt - light (have w/ fruit if you're still hungry) -applesauce - unsweetened, w/ lowfat string cheese -1/4 cup nuts -lowfat string cheese -low-fat or non-fat cottage cheese w/ tomatoes 4. Aim for 60-80 grams of protein a day (see list) 5. Add Venezuelan yogurt to breakfast Heart Protection Kitchen from [facility] Healthy eating made simple. What: FREE heart-healthy cooking demonstrations led by guest turbo electric operator and nutrition experts. Samples are provided! Where: [facility] ([facility]), September, 2nd floor teaching kitchen When: All classes from 11:00am-12:00pm ? October 12 (led by Dr. Paulino Carreno MD) Please contact Keerthi Boyer at [phone] or email at [email or web address] for information on upcoming classes and to register. Space is limited - reserve your seat today! Want more info on what to eat? Watch the [employer] video, "Healthy Eating 101," at [email or web address]/[email or web address] documented in this encounter Progress Notes Olga Lidia Montanez RD - 09/11/2017 2:30 PM PSTFormatting of this note might be different fro m the original. [facility] Preventive Cardiology, Nutrition Consultation Referring provider: Dr. Randell Franks MD Referring diagnosis: obesity, HF, DM2 Visit type: Initial; cchl-ri-ynps visit with patient Questions/Information desired today: Hoping [...] restarting the bariatric program; getting PT in [place] & has nutrition classes scheduled. Still has bariatric notebooks at home. Per [employer] message from Dr. Pandey 09/10/17: "Just tell [...] & 1% milk; occ w/ applesauce or Venezuelan yogurt No L S (3pm): pop-tart or [...] it's too expensive. Occ fruit bowls from [facility]. Vegetables: every day w/ dinner - usually [...] in PT 2x/week for bariatric program (in [place]) UBW: 385-391 lbs Max weight: 529 lbs Weight history: lost from 495 lbs to 383 lbs in 9333-2574 on Atkins diet ANTHROPOMETRICS: Height: Ht Readings from Last 1 Encounters: 09/11/17 1.549 m (5' 1") Weight: Wt Readings from Last 1 Encounters: 09/11/17 176.5 kg (389 lb 3.2 oz) 11/28/16 179.443 kg (395 lb 10 oz) Body mass index is 73.54 kg/m. Weight casino change attendant the past year: 6 lb wt loss [...] weight loss; anticipate excellent compliance in the [facility] surgery program. Currently eating energy-dense/nurient-poor [...] of protein a day - add light Venezuelan yogurt to breakfast; include lean protein with PM snack/lunch 3. D/c carbonated beverages (e.g., diet soda); replace with water, Crystal Light, diet deca f tea, or other calorie-free still beverage Contact information was provided; call or send [employer] message to dietitian with any questi ons. [...] [place] | | | | | | [address] | | | | | | [phone] | | | | | | | | +--------+---------+ + + + documented as of this encounter Visit Diagnoses + + | Diagnosis | + + | Morbid obesity with BMI of 70 and over, adult (HCC) - Primary | + + documented in this encounter
--- OUTSIDE RECORDS SUMMARY | ~2019-12-02 | XMS | Encounter Summary ---
Demographics + + + | Address | [address] | | | [place] [address] | + + + | Home Phone [...] + | Katalina Padilla | ECON | [address] | | | | | [place], [place] | | | | | [address] | | + + + + + | Ellie Vang | ECON | Unknown | | + + + + + Care Team Providers + +------+ + | Care Bracelet Maker Novelty Name | Role | Phone | + [...] Davis | | | | | [facility] | [address] [place], | | | | | Hospital Admitting | [place] [address] | | | | | Desk Located on the | [phone] | | | | | 9th floor | | | | | | [place], [place] | [address] [place], | | | | | [address] | DEPUTY GRAND JURY [address] | | | | | | [address] | | | | | | [facility] [place] | | | | | | [address] | | | | | | [phone] | | | | | | | | +--------+ + + + + Anesthesia Record + + + + + | Procedure Name | Responsible | Anesthesia Start | Anesthesia Stop Time | | | Anesthesiologist | Time | | + + + + + | OPEN VENTRAL HERNIA | Andie Hope MD | 08/19/19 1417 | 08/19/19 0459 | | REPAIR (N/A ) | | [...] | | | [place]; Endotracheal | DEPUTY GRAND JURY | DEPUTY GRAND JURY | | | Tube; 7.5; Oral; Cuffed; [...] [address] | | | | | | [place], [place] | | | | | | [address] | | | | | | [phone] | | | | | | | [...]
--- OUTSIDE RECORDS SUMMARY | ~2019-12-02 | XMS | Encounter Summary ---
Demographics + + + | Address | [address] | | | [place] [address] | + + + | Home Phone [...] + | Katalina Padilla | ECON | [address] | | | | | [place], [place] | | | | | [address] | | + + + + + | Ellie Vang | ECON | Unknown | | + + + + + Care Team Providers + +------+ + | Care Sledger Name | Role | Phone | + [...] | | | | | | [place], [place] | | | | | | [address] | | | | | | [phone] | | | +--------+ + + + [...] | | | | | [place], [place] | | | | | | [address] | | | | | | [phone] | | | | | | | | +--------+---------+ + + + documented as of this encounter Visit Diagnoses Not on filedocumented in this encounter"
--- OUTSIDE RECORDS SUMMARY | ~2019-12-02 | XMS | Encounter Summary ---
Demographics + + + | Address | [address] | | | [place] [address] | + + + | Home Phone [...] + | Katalina Padilla | ECON | [address] | | | | | [place], [place] | | | | | [address] | | + + + + + | Ellie Vang | ECON | Unknown | | + + + + + Care Team Providers + +------+ + | Care Meter Reading Clerk Name | Role | Phone | [...] 09/08/ | Office | Digestive Health | Chilo | Postop check | | 2020 | Visit | [place] [facility] [address] | MD Jones [address] | (Primary Dx) | | | | [address] | [facility] | | | | | Mailcode: Center | [place], [place] | | | | | [facility] and | [address] | | | | | [address] [address] | [phone] | | | | | [place], [place] | | | | | | [address] | | | | | | [phone] | | | +--------+---------+ + + + [...] recommend you go to the ED in [place] for workup of pulmonary embolism. I will [...] check. Of note, she was admitted to [facility] 09/02/2019 - 09/04/2019 for a large [...] Recommended patient present to the ED in [place] for workup of pulmonary embolism Will call [...] ed by Kyrie Warren. JONES WOO MD [facility] [address] Mailcode: [place] [address] documented in this encounter Plan of Treatment +--------+---------+ + + + | Date | Type | Specialty | Care Team | Description | +--------+---------+ + + + | 03/15/ | Office | Cardiology | Randell Franks, | | | 2019 | Visit | | [address] | | | | | | [place], [place] | | | | | | [address] | | | | | | [phone] | | | | | | | | +--------+---------+ + + + documented as of this encounter Visit Diagnoses + + | Diagnosis | + + | Postop check - Primary Follow-up examination, following unspecified surgery | + + documented in this encounter
--- OUTSIDE RECORDS SUMMARY | ~2019-12-02 | XMS | Encounter Summary ---
Demographics + + + | Address | [address] | | | [place] [address] | + + + | Home Phone [...] Organization | [facility] | | | and Jeffana [...] Team Providers + +------+ + | Care Graduate Teacher Education Name | Role | Phone | + +------+ + PCP | Unavailable | + +------+ + Encounter Details +--------+ + + + + | Date | Type | Department | Care Team | Description | +--------+ + + + + | 03/31/ | Orders Only | [facility] | Dharmesh Escobar, | | | 2016 | | NEPHROLOGY [place] | TIRE BUILDER [facility]ICE [address] | | | | [address] | [address] | | | | | [address] [place], [place] | [place] | | | | | [address] | [address] | | | | | [phone] | [phone] | | | | | | | [...] F | | | | | | [place] [address] | | | | | | [phone] | | | | | | | [...] + + + | Red Blood | 5.11 (A) | 3.8 - 5.1 [...] | | | LAB | | | [facility] | | | | | + +---------+ [...]
--- OUTSIDE RECORDS SUMMARY | ~2019-12-02 | XMS | Encounter Summary ---
Demographics + + + | Address | [address] | | | [place] [address] | + + + | Home Phone [...] [place], [place] | | | | | [address] | | + + + + + | Ellie Vang | ECON | Unknown | | + + + + + Care Team Providers + +------+ + | Care Property And Casualty Insurance Agent Name | Role | Phone [...] Davis | | | | | [facility] | [address] [place], | | | | | Hospital Admitting | [place] [address] | | | | | Desk Located on the | [phone] | | | | | 9th floor | | | | | | [place], [place] | [address], | | | | | [address] | GRANITE BLOCK PAVER [address] | | | | | | [address] | | | | | | [facility] [place] | | | | | | [address] | | | | | | [phone] | | | | | | | | +--------+ + + + + Anesthesia Record + + + + + | Procedure Name | Responsible | Anesthesia Start | Anesthesia Stop Time | | | Anesthesiologist | Time | | + + + + + | OPEN VENTRAL HERNIA | Andie Hope MD | 08/19/19 1417 | 08/19/19 8963 | | REPAIR (N/A ) | | [...] | | | [address]; Endotracheal | [address] PAVER | GR[address] [place] | | | Tube; 7.5; Oral; Cuffed; [...] | | | | | | [place], [place] | | | | | | [address] | | | | | | [phone] | | | | | | | [...]
--- OUTSIDE RECORDS SUMMARY | ~2019-12-02 | XMS | Encounter Summary ---
Demographics + + + | Address | [address] | | | [place] [address] | + + + | Home Phone [...] Organization | [facility] | [...] Providers + +------+ + | Care Traffic Control Technician Name | Role | Phone | + +------+ + PCP | Unavailable | + +------+ + Encounter Details +--------+ + + + + | Date | Type | Department | Care Team | Description | +--------+ + + + + | 12/02/ | Orders Only | [facility] | Conversion | | | 2017 | | NEPHROLOGY [place] | Transaction, | | | | | [address] | Provider Unknown | | | | | [address] [place] [address] | | | | | | [address] | (Fax) | | | | | [phone] | | | +--------+ + + + [...] R[address]HEY | | | | | | [place] [address] | | | | | | [phone] | | | | | | | [...]
--- OUTSIDE RECORDS SUMMARY | ~2019-12-02 | XMS | Encounter Summary ---
Demographics + + + | Address | [address] | | | [place] [address] | + + + | Home Phone [...] [place], [place] | | | | | [address] | | + + + + + | Ellie Vang | ECON | Unknown | | + + + + + Care Team Providers + +------+ + | Care Recovery Operator Name | Role | Phone | [...] [place] | | | | | | [address] | | | | | | [phone] | | | | | | | | +--------+---------+ + + + documented as of this encounter Visit Diagnoses Not on filedocumented in this encounter"
--- OUTSIDE RECORDS SUMMARY | ~2019-12-02 | XMS | Encounter Summary ---
Demographics + + + | Address | [address] | | | [place] [address] | + + + | Home Phone [...] [place], [place] | | | | | [address] | | + + + + + | Ellie Vang | ECON | Unknown | | + + + + + Care Team Providers + +------+ + | Care Leather Stretcher Name | Role | Phone | + +------+ + PCP | Unavailable | + +------+ + Encounter Details +--------+ + + + + | Date | Type | Department | Care Team | Description | +--------+ + + + + | 05/13/ | Results | | Other, Faculty | | | 1992 | Only | | [phone] | | +--------+ + + + + [...] [address] | | | | | | [place], [place] | | | | | | [address] | | | | | | [phone] | | | | | | | [...] | | | | | | | [id number] SCAN OF | | | | | [...] | + +---------+ + + | [facility] DEPARTMENT | | | | | RADIOLOGY | | | | + +---------+ + + documented in this encounter Visit Diagnoses Not on filedocumented in this encounter"
--- OUTSIDE RECORDS SUMMARY | ~2019-12-02 | XMS | Encounter Summary ---
Demographics + + + | Address | [address] | | | [place] [address] | + + + | Home Phone [...] [place], [place] | | | | | [address] | | + + + + + | Ellie Vang | ECON | Unknown | | + + + + + Care Team Providers + +------+ + | Care Psychiatric Assistant Name | Role | Phone | [...] | Tiny, | | | | | MS EST | Fadi Person DO | MD Randell | | | | | PATIENT | [address] | [address] | | | | | [address] | Ave | | | | | | [place], | [place], [place] | | | | | | [place] [address] | [address] | | | | | | Phone: | Phone: | | | | | | [phone] | [phone] | | | | | | Fax: | Fax: | | | | | | [phone] | [phone] | +--------+--------+ + + + + Encounter Details +--------+---------+ + + + | Date | Type | Department | Care Team | Description | +--------+---------+ + + + | 04/03/ | Office | Cardiology | Randell Franks, | Morbid obesity (HCC) | | 2014 | Visit | Preventive at [facility] | [address] | (Primary Dx); Type | | | | [address] | [place], [place] | 2 diabetes mellitus | | | | Mailcode: CH9A | [address] | without complication | | | | [facility] | [phone] | ([facility]) | | | | and [place], | | | | | | [address] | | | | | | [place], [place] | | | | | | [address] | | | | | | [phone] | | | +--------+---------+ + + + [...] 500 mg by mouth once daily. CALCIUM CRB&NSB-G9-TSO55-GENIS ORAL Take 1 tablet by mouth two [...] documented, but if we use her last [facility] weight of 410 lbs, this would put her at 360 lbs before consideration for RYGBP. She is working with the bariatric surgery pedigree tracer to try to achieve this. She states [...] visit Diet: healthy, working with Bar Surg pedigree tracer Exercise: "I walk everywhere." ROS: No CP, [...] [address] | | | | | | [place], [place] | | | | | | [address] | | | | | | [phone] | | | | | | | | +--------+---------+ + + + documented as of this encounter Visit Diagnoses + + | Diagnosis | + + | Morbid obesity (HCC) - Primary Morbid obesity | + + | Type 2 diabetes mellitus without complication (HCC) | + + documented in this encounter
--- OUTSIDE RECORDS SUMMARY | ~2019-12-02 | XMS | Encounter Summary ---
Demographics + + + | Address | [address] | | | [place] [address] | + + + | Home Phone [...] [place], [place] | | | | | [address] | | + + + + + | Ellie Vang | ECON | Unknown | | + + + + + Care Team Providers + +------+ + | Care Chief Learning Officer Name | Role | Phone | [...] Physicians | | | | | | [facility] | [place], [facility] | | | | | | [place], [place] | Floor | | | | | | [address] | [place], [place] | | | | | | Phone: | [address] | | | | | | [phone] | Phone: | | | | | | | [phone] | | | | | | | Fax: | | | | | | | [phone] | +--------+--------+ + + + + Encounter [...] | [facility] [address] [place], | | | | | [address] | [place] [address] | | | | | [facility], | [phone] | | | | | 2nd Floor | | | | | | [place], [place] | | | | | | [address] | | | | | | [phone] | | | +--------+---------+ + + + [...] Axel Gonzales MD - 03/06[facility]2014 [facility] [...] a HIDA scan to be done in [place] to verify that she does not have a pos t-operative surgical complication. We will call her with the results of her labs and imagin g. If these all come back normal she will need to follow up with her PCP to address her elisa sea/vomiting. - CBC and LFT's today - HIDA scan ordered, to be done in [place] - Will call patient once results are back. If normal, no need for follow up with EGS. The patient was seen and examined with Dr. Starr who agrees with the above assessment and janina Gonzales MD PGY-2 General Surgery Resident Department of General Surgery Pager: [phone] I saw and evaluated the patient. I agree with the findings and the plan of care as dequan han in the resident s note. PRADIP STARR MD [facility] AT [facility] [address] [facility] Mailcode: [id number] [place] [address] documented in this encoun ter Plan of Treatment +--------+---------+ + + + | Date | Type | Specialty | Care Team | Description | +--------+---------+ + + + | 03/15/ | Office | Cardiology | Randell Franks, | | | 2019 | Visit | | [address] | | | | | | [place], [place] | | | | | | [address] | | | | | | [phone] | | | | | | | [...] [facility] | [address] | [place] [address] | | | SERVICES, CORE | [address] | | | + + + + + documented in this encounter Visit Diagnoses + + | Diagnosis | + + | Cholecystitis - Primary Cholecystitis, unspecified | + + documented in this encounter
--- OUTSIDE RECORDS SUMMARY | ~2019-12-02 | XMS | Encounter Summary ---
Demographics + + + | Address | [address] | | | [place] [address] | + + + | Home Phone [...] [place], [place] | | | | | [address] | | + + + + + | Ellie Vang | ECON | Unknown | | + + + + + Care Team Providers + +------+ + | Care Retread Mold Operator Name | Role | Phone | [...] MD,PhD | | | | | [facility] | [address] | | | | | Hospital Admitting | [place], [place] | | | | | Desk Located on the | [address] | | | | | 9th floor | [phone] | | | | | [place], [place] | | | | | | [address] | Graham Honeycutt, | | | | | | CERTIFIED SURGICAL ASSISTANT [address] | | | | | | [address] | | | | | | [place], [place] | | | | | | [address] | | | | | | [phone] | | | | | | | [...] | | Endotracheal Tube; 7; Oral; | CERTIFIED SURGICAL ASSISTANT | CERTIFIED SURGICAL ASSISTANT | | | Cuffed; 06/23/18; 1542 | [...] [address] | | | | | | [place], [place] | | | | | | [address] | | | | | | [phone] | | | | | | | [...]
--- OUTSIDE RECORDS SUMMARY | ~2019-12-02 | XMS | Encounter Summary ---
Demographics + + + | Address | [address] | | | [place] [address] | + + + | Home Phone [...] [place], [place] | | | | | [address] | | + + + + + | Ellie Vang | ECON | Unknown | | + + + + + Care Team Providers + +------+ + | Care Construction Equipment Operator Name | Role | Phone [...] + + | 11/05/ | Hospital | [facility] 14C [address] | Joseph An | | | 2016 - | Encounter | [address] | MD Birgit [address] [facility] | | | | | 14C [facility] | [address] | | | 11/20/ | | [place], [place] | [place], [place] | | | 2016 | | [address] | [address] | | | | | [phone] | [phone] | | | | | | | | | | | | Ana, | | | | | | MD Briana [address] | | | | | | [address] | | | | | | Rd [place], [place] | | | | | | [address] | | | | | | [phone] | | | | | | | | | | | | Carmelina Tucker, | | | | | | JEFFREY-Aimee [address] | | | | | | [address] | | | | | | [place], [place] | | | | | | [address] | | | | | | [phone] | | | | | | | | | | | | Charley Lacey MD | | | | | | Jose Sctot MD | | | | | | [address] | | | | | | [address] | | | | | | [place], [place] | | | | | | [address] | | | | | | [phone] | | | | | | | | | | | | Mannie Larkin MD | | | | | | [address] | | | | | | [address] [place], | | | | | | [place] [address] | | | | | | [phone] | | | | | | | | | | | | Tyrone Adrian MD | | | | | | [address] | | | | | | [address] [place], | | | | | | [place] [address] | | | | | | [phone] | | | | | | | [...] did want her to follow up with turkey pinner in [place]. She should continue working towards bariatric surgery wh ich will ultimately put less stress on her heart. -Continue torsemide 80mg BID -Increase potassium supplementation to KCl 40mg BID -Daily weights and strict 2g Na 2L fluid restricted diet -Close followup with Dr. Goodrich (appt on 11/25 at 11AM) -Needs followup with cardiology in [place] #Left lower extremity DVT #Presumed PE Asymmetric left lower extremity pain and swelling was suspicious for DVT and confirmed with duplex ultrasound. Did not pursue CTA as it was decided that it would not change manager . Started anticoagulation bridge with heparin gtt [...] mouth once daily. , Historical Med CALCIUM [id number]-GENIS ORAL Take 2 tablets by mouth two [...] Cyndi Meier Cardiology Congestive [facility] Failure at [facility] Cardiology Additional Instructions/Orders: Diet Diabetic (Consistent Carbohydrate) [...] Good Yosef Segovia MD PGY-1 Internal Medicine [id number] INPATIENT FACULTY PROGRESS NOTE - GM 1 [...] (HCC) 15) Candidal intertrigo Tyrone Adrian MD [facility] 14C artists' model Division of Hospital Medicine Department of Medicine [address] [place] [address] PSYCHIATRIC DEPARTMENT: Hosp- [id number] Place of Service: Date of Service: 11/21/2015 CSN: [id number] Modifiers:GC Resident Involved: Yes Suggested CPT: 88820 Discharge Management < 30 minute documented in this encou nter Medications at Time of Discharge + + + +---------+--------+ + | Medication | Sig | Dispensed | Refills | Start | End Date | | | | | | Date | | + + + +---------+--------+ + | CALCIUM | Take 2 tablets by | | 0 | | | | CRB&ELA-[id number]-GEN | mouth two times | | | [...] FACULTY PROGRESS NOTE - GM 1 Author; Tyrnoe Adrian MD Attending Physician: Tyrone Adrian MD [...] (HCC) 15) Candidal intertrigo Tyrone Adrian MD [facility] 14C artists' model Division of Hospital Medicine Department of Medicine Count Includes [facility] & [facility] [address] [place] [address] PSYCHIATRIC DEPARTMENT: Hosp- [id number] Place of Service: - Date of Service: 11/20/2015 CSN: [id number] Modifiers:CHANDLER Resident Involved: Yes Suggested CPT: 35009 Subsequent Visit Exp Prob Foc/Mod Complexity 25 min olleen Diamond - 016 6:49 AM PDT PHYSICIAN INTELLIGENCE OPERATIONS STUDENT PROGRESS NOTE FOR EDUCATIONAL PURPOSES ONLY INPATIENT PROGRESS NOTE PATIENT INFORMATION Patient Name: Elzbieta Cristina Date of : 1975 Date of Admission: 11/06/2015 PCP: Fadi Goodrich DO Room/Bed: [facility] Attending Provider: Tyrone Adrian MD [...] of ovarian cysts or menses related. Contact SPIRAL TUBE WINDER HELPER if TV-US i s ordered. - TV-US [...] - topiramate 200mg po bid JEFFREY Gee-S2 [facility] PA Student Feeding: <2L fluid, Diabetic diet, >2g na Analgesia: APAP, gabapentin, hydrocodone Thromboembolic prophylaxis: Heparin/warfarin Glycemic control: moderate ISS Mobility: Encourage walking and movement Discharge: Expect hospital stay another 2-3 days with PCP FU (Dr. Goodrich) on Saturday 11/25 @ 1 1 am. - Referral to Radio Mechanic Helper Code status: FULL Associated attestation - Yosef [...] PCP Yosef Segovia MD PGY-1 Internal Medicine [id number] Tyrone Adrian MD - 11/19/2015 11:51 AM [...] if the PO works) Tyrone Adrian MD [facility] 14C artists' model Division of Hospital Medicine Department of Medicine Count Includes [facility] [address] [place] [phone] PSYCHIATRIC DEPARTMENT: Hosp- [id number] Place of Service: [facility] Date of Service: 11/19/2015 CSN: [id number] Modifiers:GC Resident Involved: Yes Suggested CPT: 32710 Subsequent Visit Exp Prob Foc/Mod Complexity 25 min lowerbobbi Colleen - 016 6:24 AM PDT PHYSICIAN INTELLIGENCE OPERATIONS STUDENT PROGRESS NOTE FOR EDUCATIONAL PURPOSES ONLY INPATIENT PROGRESS NOTE PATIENT INFORMATION Patient Name: Elzbieta Cristina Date of : 1975 Date of Admission: 11/06/2015 PCP: Fadi Goodrich DO Room/Bed: [facility]/08/08 Attending Provider: Tyrone Adrian MD [...] of ovarian cysts or menses related. Contact SPIRAL TUBE WINDER HELPER if TV-US i s ordered. - TV-US [...] - topiramate 200mg po bid JEFFREY Gee-S2 [facility] PA Student Feeding: <2L fluid, Diabetic [...] can. Yosef Segovia MD PGY-1 Internal Medicine [id number] Tyrone Adrian MD - 11/18/2015 2:01 PM [...] (HCC) 15) Candidal intertrigo Tyrone Adrian MD [facility] 14C artists' model Division of Hospital Medicine Department of Medicine Count Includes [facility] & [facility] [address] [place] [phone] PSYCHIATRIC DEPARTMENT: Hosp- [id number] Place of Service: Date of Service: 11/18/2015 CSN: [id number] Modifiers:GC Resident Involved: Yes Suggested CPT: 39900 Subsequent Visit Exp Prob Foc/Mod Complexity 25 [...] plan. Yosef Segovia MD PGY-1 Internal Medicine [id number] signed by Yosef Segovia at 11/18/2015 11:52 [...] (HCC) 15) Candidal intertrigo Tyrone Adrian MD [facility] 14C artists' model Division of Hospital Medicine Department of Medicine Count Includes [facility] & [address] [place] [phone] PSYCHIATRIC DEPARTMENT: Hosp- [id number] Place of Service: - [id number] Date of Service: 11/17/2015 CSN: [id number] Modifiers:GC Resident Involved: Yes Suggested CPT: 34072 Subsequent Visit Exp Prob Foc/Mod Complexity 25 min lColleen goff - 016 6:40 AM PDT PHYSICIAN INTELLIGENCE OPERATIONS STUDENT PROGRESS NOTE FOR EDUCATIONAL PURPOSES ONLY [...] - topiramate 200mg po bid JEFFREY Gee-S2 [facility] PA Student Feeding: <2L fluid, Diabetic [...] can Yosef Segovia MD PGY-1 Internal Medicine [id number] Tyrone Adrian MD - 11/16/2015 4:59 PM [...] (HCC) 15) Candidal intertrigo Tyrone Adrian MD [facility] 14C artists' model Division of Hospital Medicine Department of Medicine Count Includes [facility] & [facility] [address] [place] [phone] PSYCHIATRIC DEPARTMENT: Hosp- [id number] Place of Service: - Date of Service: 11/16/2015 CSN: [id number] Modifiers:GC Resident Involved: Yes Suggested CPT: 10184 Subsequent Visit Exp Prob Foc/Mod Complexity 25 min olleen Diamond - 016 6:43 AM PDT PHYSICIAN INTELLIGENCE OPERATIONS STUDENT PROGRESS NOTE FOR EDUCATIONAL PURPOSES ONLY INPATIENT PROGRESS NOTE PATIENT INFORMATION Patient Name: Elzbieta Cristina Date of : 1975 Date of Admission: 11/06/2015 PCP: Fadi Goodrich DO Room/Bed: [address] [place] [address] Attending Provider: Tyrone Adrian MD Encounter Information [...] - topiramate 200mg po bid JEFFREY Gee-S2 [facility] PA Student Feeding: <2L fluid, Diabetic [...] Patient lives i [facility] which is quite a distance to travel to and from [place]. We would ideally arran ge cardiac follow [...] (HCC) 15) Candidal intertrigo Tyrone Adrian MD [facility] 14C artists' model Division of Hospital Medicine Department of Medicine Count Includes [facility] & [facility] [address] [place] [address] PSYCHIATRIC DEPARTMENT: Hosp- [id number] Place of Service: Date of Service: 11/15/2015 CSN: [id number] Modifiers:GC Resident Involved: Yes Suggested CPT: 99003 Subsequent Visit Detailed/High complexity 35 min lColleen goff - 016 6:33 AM PDT PHYSICIAN INTELLIGENCE OPERATIONS STUDENT PROGRESS NOTE FOR EDUCATIONAL PURPOSES ONLY [...] last 8 days Intake 9571.5 ml Output 16771 ml Net since Admission -65915.5 ml -25.938 L = 57.0636 lbs Constitutional: [...] - topiramate 200mg po bid JEFFREY Gee-S2 [facility] PA Student Feeding: <2L fluid, Diabetic [...] can Yosef Segovia MD PGY-1 Internal Medicine [id number] Tyrone Adrian MD - 11/14/2015 4:16 PM [...] (HCC) 15) Candidal intertrigo Tyrone Adrian MD [facility] 14C artists' model Division of Hospital Medicine Department of Medicine Count Includes [facility] & [facility] [address] [place] [address] PSYCHIATRIC DEPARTMENT: Hosp- [id number] Place of Service: - Date of Service: 11/14/2015 CSN: [id number] Modifiers:CHANDLER Resident Involved: Yes Suggested CPT: 53493 Subsequent Visit Exp Prob Foc/Mod Complexity 25 min olleen Diamond - 016 6:42 AM PDT PHYSICIAN INTELLIGENCE OPERATIONS STUDENT PROGRESS NOTE FOR EDUCATIONAL PURPOSES ONLY INPATIENT PROGRESS NOTE PATIENT INFORMATION Patient Name: Elzbieta Cristina Date of : 1975 Date of Admission: 11/06/2015 PCP: Fadi Goodrich DO Room/Bed: [facility] Attending Provider: Tyrone Adrian MD [...] - topiramate 200mg po bid JEFFREY Gee-S2 [facility] PA Student Feeding: <2L fluid, Diabetic [...] outpatient Yosef Segovia MD PGY-1 Internal Medicine [id number] Tyrone Adrian MD - 11/13/2015 4:06 PM [...] (HCC) 15) Candidal intertrigo Tyrone Adrian MD [facility] 14C artists' model Division of Hospital Medicine Department of Medicine Count Includes [facility] & [facility] [address] [place] [address] PSYCHIATRIC DEPARTMENT: Hosp- [id number] Place of Service: Date of Service: 11/13/2015 CSN: [id number] Modifiers:GC Resident Involved: Yes Suggested CPT: 10074 Subsequent Visit Detailed/High complexity 35 min lshell Colleen - 016 6:36 AM PDT PHYSICIAN INTELLIGENCE OPERATIONS STUDENT PROGRESS NOTE FOR EDUCATIONAL PURPOSES ONLY INPATIENT PROGRESS NOTE PATIENT INFORMATION Patient Name: Elzbieta Cristina Date of : 1975 Date of Admission: 11/06/2015 PCP: Fadi Goodrich DO Room/Bed: [facility] Attending Provider: Tyrone Adrian MD [...] - topiramate 200mg po bid JEFFREY Gee-S2 [facility] PA Student Feeding: <2L fluid, Diabetic [...] VTE. 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, at this point not definitive Plan: continue [...] ongoing 12) Candidal intertrigo Tyrone Adrian MD [facility] 14C artists' model Division of Hospital Medicine Department of Medicine Count Includes [facility] & [facility] [address] [place] [address] PSYCHIATRIC DEPARTMENT: Hosp- [id number] Place of Service: - Date of Service: 11/12/2015 CSN: [id number] Modifiers:GC Resident Involved: Yes Suggested CPT: 75264 Subsequent Visit Detailed/High complexity 35 min lColleen goff - 016 6:31 AM PDT PHYSICIAN INTELLIGENCE OPERATIONS STUDENT PROGRESS NOTE FOR EDUCATIONAL PURPOSES ONLY [...] - topiramate 200mg po bid JEFFREY Gee-S2 [facility] PA Student Feeding: <2L fluid, Diabetic [...] disease. Yosef Segovia MD PGY-1 Internal Medicine [id number] Rucker MD - 11/11/2015 9:19 PM PDTGENERAL [...] diuresis then RHC Mannie Larkin MD Clinical Food Production Associate, Internal Medicine Pager [phone] ERColleen Diamond - 10/25 6:40 AM PDT PHYSICIAN INTELLIGENCE OPERATIONS STUDENT PROGRESS NOTE FOR EDUCATIONAL PURPOSES ONLY [...] - topiramate 200mg po bid JEFFREY Gee-S2 [facility] PA Student Feeding: <2L fluid, Diabetic diet, [...] pain Yosef Segovia MD PGY-1 Internal Medicine [id number] Maria Eugenia Leiva RCP - 11/11/2015 6:39 [...] another 5-7 days Mannie Larkin MD Clinical Food Production Associate, Internal Medicine Pager [phone] Yosef Fang - 7:24 AM PDT General [...] plan. 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 In terms of AMARA - does not tolerate CPAP historically. Likely CPAP will be ve ry important for her going forward. Will try overnight oximetry here to assess severity. Discharge planning:Anticipate several days in house. I spent >35 min of which >50% was spent in counseling and coordination of care. Briana Perez MD [facility] Division of Hospital Medicine Grisel Mcghee [...] Maker Primary Surrogate Decision Maker Katalina Padilla [facility] [phone] Advanced Directives Existence of Advanced Directive Reviewed: No- Has Interest (11/09/15 1022) Advanced Directives Reviewed Comments: I gave a copy of advance directives (11/09/15 1022) KRISHNA Huertas NP [facility] 14[address] [place] [address] Colleen Tello - 6:41 AM PDT PHYSICIAN INTELLIGENCE OPERATIONS STUDENT PROGRESS NOTE FOR EDUCATIONAL PURPOSES ONLY [...] of acute blood loss and anemia 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 [...] AM Yosef Segovia MD PGY-1 Internal Medicine [id number] Briana Perez MD - 11/08/2015 2:01 PM [...] and coordination of care. Briana Perez MD [facility] Division of Hospital Medicine olleen Diamond - 11/08/2015 6:26 AM PDT PHYSICIAN INTELLIGENCE OPERATIONS STUDENT PROGRESS NOTE FOR EDUCATIONAL PURPOSES ONLY [...] po bid (topamax, nerve pain) JEFFREY Gee-S2 [facility] PA Student Feeding: <2L fluid, Diabetic [...] Hair Md, MSc Internal Medicine PGY2 Pager [phone] Kwadwo Freire - 11/07/2015 2:05 PM PDTTransthoracic [...] plan. Yosef Segovia MD PGY-1 Internal Medicine [id number] lowersColleen - 016 8:43 AM PDT PHYSICIAN INTELLIGENCE OPERATIONS STUDENT PROGRESS NOTE FOR EDUCATIONAL PURPOSES ONLY [...] perfusion. - consider US to evaluate liver (TIPP-pbt-cmouafkij fatty liver dz) and look for ascites. [...] armour thyroid 30mg po bid JEFFREY Gee-S2 [facility] PA Student Feeding: <2L fluid, <2g Na [...] [place] | | | | | | [address] | | | | | | [phone] | | | | | | | [...] [facility] | [address] | [place], [place] | | | [facility] CARE | [address] | [address] | | | TESTS | | | [...] CENTER LAB[facility]ORY | [address] | [place] [address] | | | SERVICES, LYDIA | LESLY [...] [facility] | [address] | [place] [address] | | | SERVICES, CORE [...] | | | LABORATORY | | | [place] | | | SERVICES, | | [...] the MDRD equation recommended by the | [facility] | | National Kidney Disease [...] [facility] | [address] | [place] [address] | | | CLAIRE, LYDIA | LESLY [...] [facility] | [address] | [place], [place] | | | [facility] OF [place] | [facility] | [address] | | | TESTS | | | [...] [facility] | [address] | [place], [place] | | | [place] OF CARE | [address] | [address] | | | TESTS | | | [...] [facility] | [address] | [place], [place] | | | [facility]ARE | [facility] | [address] | | | TESTS | | | [...] [facility] | [address] | [place], [place] | | | [facility] [place] [facility] [place] | [facility] | [address] | | | TESTS | | | [...] [facility] | [address] | [place], [place] | | | [place] OF [place] | [address] | [address] | | | TESTS | | | [...] | + + + + + | [facility] | [address] [facility] | [place] [address] | | | SERVICES, LYDIA | LESLY [...] | + + + + + | [facility] | [address] | [place] [address] | | | SERVICES, CORE | [address] | | | + + + + + MAGNESIUM, PLASMA (11/20/2015 6:00 AM PDT) + +-------+ + + + | Component | Value | Ref Range | Performed | Pathologist | | | | | At | Signature | + +-------+ + + + | MAGNESIUM,P | 2.5 | 1.8 - 2.5 mg/dL | [facility] | | | LASMA | | | [facility] | [address] | [place] [address] | | | SERVICES, CORE | [address] [...] | | | LABORATORY | | | [place] | | | SERVICES, | | [...] | + + + + + | [facility] | [address] | [place] [address] | | | SERVICES, CORE | [address] [...] [facility] | [address] | [place], [place] | | | [facility] CARE | [address] | [address] | | | TESTS | | | [...] - [facility] | [address] | [place], [place] | | | [place] [facility] | [address] | [address] | | | TESTS | | | [...] CENTER [facility] | [address] | [place] [address] | | | SERVICES, CORE | [address] [...] | + + + + + | [facility] | [address] | [place] [address] | | | SERVICES, CORE | LESLY [...] | | | LABORATORY | | | [place] | | | SERVICES, | | [...] CENTER LAB[facility] | [address] | [place] [address] | | | SERVICES, CORE | LESLY [...] (H) | 60 - 99 mg/dL | [facility] - | | [...] AMES | [address] | [place], [place] | | | [facility] [facility] [place] | [address] | [address] | | | TESTS | | | [...] [facility] | [address] | [place], [place] | | | [place] [facility] OF CARE | [address] | [address] | | | TESTS | | | [...] [facility] | [address] | [place], [place] | | | [facility]ARE | [address] | [address] | | | TESTS | | | [...] AMES | [address] | [place], [place] | | | [facility] [place] | [address] | [address] | | | TESTS | | | [...] CENTER LAB[facility] | [address] | [place] [address] | | | SERVICES, CORE | [address] | | | + + + + + MAGNESIUM, PLASMA (11/18/2015 2:25 PM PDT) + +-------+ + + + | Component | Value | Ref Range | Performed | Pathologist | | | | | At | Signature | + +-------+ + + + | MAGNESIUM,P | 2.2 | 1.8 - 2.5 mg/dL | [facility] | | | LASMA | | | [...] | + + + + + | [facility] | [address] | [place] [address] | | | SERVICES, CORE | LESLY [...] [facility] | [address] | [place], [place] | | | [facility] CARE | [address] | [address] | | | TESTS | | | [...] - [facility] | [address] | [place], [place] | | | [facility] CARE | [facility] | [address] | | | TESTS | | | [...] [facility] | [address] | [place] [address] | | | SERVICES, CORE | [address] [...] [facility] | [address] | [place] [address] | | | SERVICES, LYDIA | [address] [...] | + + + + + | [facility] | [address] | [place] [address] | | | SERVICES, CORE | LESLY [...] | | | LABORATORY | | | [place] | | | SERVICES, | | [...] CENTER LAB[facility]ORY | [address] | [place] [address] | | | SERVICES, CORE [...] (H) | 60 - 99 mg/dL | [facility] - | | | GLUCOSE, | | [...] [facility] | [address] | [place], [place] | | | [facility] [facility] [place] | [facility] | [address] | | | TESTS | | | [...] [facility] | [address] | [place], [place] | | | [facility] CARE | [facility] | [address] | | | TESTS | | | [...] (H) | 60 - 99 mg/dL | [facility] - | | [...] [facility] | [address] | [place], [place] | | | [place]INT OF CARE | [address] | [address] | | | TESTS | | | [...] AM[facility] | [address] | [place], [place] | | | [facility] OF J[place]Y | [facility] | [address] | | | TESTS | | | [...] [facility] | [address] | [place] [address] | | | LYDIA RANGEL | LESLY [...] CENTER LAB[facility] | [address] | [place] [address] | | | SERVICES, CORE | [address] | | | + + + + + MAGNESIUM, PLASMA (11/17/2015 5:39 AM PDT) + +-------+ + + + | Component | Value | Ref Range | Performed | Pathologist | | | | | At | Signature | + +-------+ + + + | MAGNESIUM,P | 2.3 | 1.8 - 2.5 mg/dL | [facility] | [address] | [place] [address] | | | SERVICES, CORE | [address] [...] | | | LABORATORY | | | [place] | | | SERVICES, | | [...] the MDRD equation recommended by the | [facility] | | National Kidney Disease [...] [facility] | [address] | [place] [address] | | | SERVICES, CORE | LESLY [...] [facility] | [address] | [place] [address] | | | SERVICES, CORE | [address] [...] CENTER LAB[facility] | [address] | [place] [address] | | | SERVICES, CORE | LESLY [...] (H) | 60 - 99 mg/dL | [facility] - | | | GLUCOSE, | | [...] [facility] | [address] | [place], [place] | | | [facility] [place] OF [place] | [facility] | [address] | | | TESTS | | | [...] [facility] | [address] | [place], [place] | | | [facility] OF CARE | [facility] | [address] | | | TESTS | | | [...] (H) | 60 - 99 mg/dL | [facility] - | | [...] [facility] | [address] | [place], [place] | | | [facility] CARE | [address] | [address] | | | TESTS | | | [...] | + + + + + | [facility] | [address] | [place] [address] | | | SERVICES, CORE | LESLY [...] [facility] | [address] | [place], [place] | | | [facility] CARE | [address] | [address] | | | TESTS | | | [...] [facility] | [address] | [place] [address] | | | CLAIRE, LYDIA | LESLY [...] [facility] | [address] | [place] [address] | | | SERVICES, CORE | [address] [...] | | | LABORATORY | | | [place] | | | SERVICES, | | [...] the MDRD equation recommended by the | [facility] | | National Kidney Disease [...] [facility] | [address] | [place] [address] | | | SERVICES, CORE | PARK [...] [facility] | [address] | [place] [address] | | | SERVICES, CORE | LESLY [...] (H) | 60 - 99 mg/dL | [facility] - | | [...] + + + | [facility] | [address] | [place], [place] | | | [place]INT OF CARE | [address] | [address] | | | TESTS | | | [...] | + + + + + | [facility] | [address] | [place] [address] | | | LYDIA RANGEL | LESLY [...] [facility] | [address] | [place], [place] | | | [place]INT OF CARE | [facility] | [address] | | | TESTS | | | [...] [facility] | [address] | [place] [address] | | | SERVICES, CORE | LESLY [...] (H) | 60 - 99 mg/dL | [facility] - | | | GLUCOSE, | | [...] [facility] | [address] | [place], [place] | | | [facility] | [facility] | [address] | | | TESTS | | | [...] - [place] | [address] | [place], [place] | | | [place] [facility] | [facility] | [address] | | | TESTS | | | [...] CENTER [facility] | [address] | [place] [address] | | | SERVICES, CORE | LESLY [...] [facility] | [address] [facility] | [place] [address] | | | SERVICES, CORE | [address]ARK [...] CENTER LAB[facility] | [address] | [place] [address] | | | SERVICES, CORE | [address] | | | + + + + + MAGNESIUM, PLASMA (11/15/2015 5:49 AM PDT) + +-------+ + + + | Component | Value | Ref Range | Performed | Pathologist | | | | | At | Signature | + +-------+ + + + | MAGNESIUM,P | 2.2 | 1.8 - 2.5 mg/dL | CTORIN | | | LASMA | | | [...] | + + + + + | [facility] | [address] | [place] [address] | | | SERVICES, CORE | LESLY [...] | | | LABORATORY | | | [facility] [place] [facility] | | | SERVICES, | | [...] CENTER LAB[facility]ORY | [address] | [place] [address] | | | SERVICES, CORE | LESLY [...] (H) | 60 - 99 mg/dL | [facility] - | | [...] AMES | [address] | [place], [place] | | | [place] [facility] | [address] | [address] | | | TESTS | | | [...] | + + + + + | [facility] | [address] [facility] | [place] [address] | | | SERVICES, LYDIA | LESLY [...] [place] | [address] | [place], [place] | | | [facility] | [facility] | [address] | | | TESTS | | | [...] (H) | 60 - 99 mg/dL | [facility] - | | [...] [place] | [address] | [place], [place] | | | [facility] | [address] | [address] | | | TESTS | | | [...] | + + + + + | [facility] | [address] | [place] [address] | | | SERVICES, CORE | LESLY [...] [facility] | [address] | [place], [place] | | | [facility] [facility] | [address] | [address] | | | TESTS | | | [...] [facility] | [address] | [place] [address] | | | SERVICES, CORE | LESLY [...] [facility] | [address] | [place] [address] | | | SERVICES, CORE | [address] [...] | + + + + + | [facility] | [address] | [place] [address] | | | SERVICES, CORE | LESLY [...] | | | LABORATORY | | | [place] | | | SERVICES, | | [...] CENTER LAB[facility]ORY | [address] | [place] [address] | | | SERVICES, CORE | LESLY [...] (H) | 60 - 99 mg/dL | [facility] - | | [...] AMES | [address] | [place], [place] | | | [place] | [address] | [address] | | | TESTS | | | [...] [place] | [address] | [place], [place] | | | [facility] | [address] | [address] | | | TESTS | | | [...] [place] | [address] | [place], [place] | | | [facility] | [address] | [address] | | | TESTS | | | [...] AMES | [address] | [place], [place] | | | [facility] | [address] | [address] | | | TESTS | | | [...] [facility] | [address] | [place] [address] | | | SERVICES, CORE | PARK [...] [facility] | [address] | [place] [address] | | | SERVICES, CORE | PARK [...] | + + + + + | [facility] | [address] [facility] | [place] [address] | | | SERVICES, CORE | PARK [...] | + + + + + | [facility] | [address] | [place] [address] | | | SERVICES, CORE | LESLY [...] [facility] | [address] | [place] [address] | | | SERVICES, CORE | PARK [...] | | | LABORATORY | | | [place] | | | SERVICES, | | [...] | + + + + + | [facility] | [address] [facility] | [place] [address] | | | CLAIRE, LYDIA | LESLY [...] [facility] | [address] | [place] [address] | | | LYDIA RANGEL | LESLY [...] | | | LABORATORY | | | [place] | | | SERVICES, | | [...] + | [facility] [employer] | [address] | [place] [address] | | | SERVICES, CORE | LESLY [...] [place] | [address] | [place], [place] | | | [facility] | [facility] | [address] | | | TESTS | | | [...] (H) | 60 - 99 mg/dL | [facility] - | | [...] AMES | [address] | [place], [place] | | | [facility] | [address] | [address] | | | TESTS | | | [...] AMES | [address] | [place], [place] | | | [facility] | [facility] | [address] | | | TESTS | | | | + + + + + CAPILLARY BLOOD GLUCOSE (NO CHG)VALEIRE (11/12/2015 8:39 AM PDT) + +---------+ + [...] [place] | [address] | [place], [place] | | | [facility] | [address] | [address] | | | TESTS | | | [...] + + | [facility] | [address] [facility] | [place] [address] | | | SERVICES, CORE | PARK [...] + + | [facility] | [address] [facility] | [place] [address] | | | SERVICES, CORE | PARK [...] | + + + + + | [facility] | [address] | [place] [address] | | | SERVICES, CORE | PARK [...] | | | LABORATORY | | | [place] | | | SERVICES, | | [...] | + + + + + | [facility] | [address] | [place] [address] | | | SERVICES, CORE | PARK [...] [place] | [address] | [place], [place] | | | [facility] | [address] | [address] | | | TESTS | | | [...] CENTER [facility] | [address] | [place] [address] | | | SERVICES, CORE | LESLY [...] [facility] | [address] | [place] [address] | | | SERVICES, CORE | PARK [...] [facility] | [address] | [place] [address] | | | SERVICES, CORE | PARK [...] [facility] | [address] | [place] [address] | | | CLAIRE, LYDIA | LESLY [...] [place] | [address] | [place], [place] | | | [facility] | [address] | [address] | | | TESTS | | | [...] AMES | [address] | [place], [place] | | | [facility] | [address] | [address] | | | TESTS | | | [...] | + + + + + | [facility] | [address] [facility] | [place] [address] | | | SERVICES, LYDIA | LESLY [...] - [place] | [address] | [place], [place] | | | [facility] | [facility] | [address] | | | TESTS | | | [...] [facility] | [address] | [place] [address] | | | SERVICES, CORE | PARK [...] [facility] | [address] | [place] [address] | | | SERVICES, CORE | PARK [...] | + + + + + | [facility] | [address] | [place] [address] | | | SERVICES, CORE | PARK [...] | | | LABORATORY | | | [facility] [place] [facility] | | | SERVICES, | | [...] | + + + + + | [facility] | [address] | [place] [address] | | | SERVICES, CORE | LESLY [...] [place] | [address] | [place], [place] | | | [facility] | [address] | [address] | | | TESTS | | | [...] [facility] | [address] | [place] [address] | | | SERVICES, LYDIA | LESLY [...] (H) | 60 - 99 mg/dL | [facility] - | | [...] [place] | [address] | [place], [place] | | | [facility] | [facility] | [address] | | | TESTS | | | [...] AMES | [address] | [place], [place] | | | [facility] | [address] | [address] | | | TESTS | | | [...] | + + + + + | [facility] | [address] | [place] [address] | | | SERVICES, CORE | LESLY [...] [facility] | [address] | [place], [place] | | | [facility] [facility] | [facility] | [address] | | | TESTS | | | [...] | + + + + + | [facility] | [address] | [place] [address] | | | SERVICES, CORE | LESLY [...] | + + + + + | [facility] | [address] [facility] | [place] [address] | | | SERVICES, CORE | PARK [...] [facility] | [address] | [place] [address] | | | LYDIA RANGEL | LESLY [...] | | | LABORATORY | | | [place] | | | SERVICES, | | [...] | + + + + + | [facility] | [address] | [place] [address] | | | SERVICES, CORE | LESLY [...] + | [facility] [employer] | [address] | [place] [address] | | | SERVICES, CORE | PARK [...] CENTER LAB[facility]ATORY | [address] | [place] [address] | | | CLAIRE, LYDIA | LESLY [...] (H) | 60 - 99 mg/dL | [facility] - | | [...] AMES | [address] | [place] | | | [facility] | [facility] | [address] | | | TESTS | | | [...] [facility] | [address] | [place], [place] | | | [facility] | [address] | [address] | | | TESTS | | | | + + + + + X-RAY PORTABLE CHEST PICC LINE CHECK (11/09/2015 3:12 PM PDT) + + + + + + | Component | Value | Ref Range | Performed | Pathologist | | | | | At | Signature | + + + + + + | XRAY | EXAM: MA CHEST PICC LINE | | | | [...] | | + +---------+ + + | [facility] DEPARTMENT OF | [...] and meds | | | Procedure location: Unit:[facility] mature adult care unit Room: 13 Providers: PICC Nurse | | [...] | pause verifies correct patient, procedure, equipment, computer support analyst | | | and site/side [...] | area Cephalic vein. Catheter lot number: [id number] with a length of | | | [...] AMES | [address] | [place], [place] | | | [facility] | [address] | [address] | | | TESTS | | | [...] [facility] | [address] | [place] [address] | | | SERVICES, CORE | LESLY [...] (H) | 60 - 99 mg/dL | [facility] - | | [...] AMES | [address] | [place], [place] | | | [facility] | [address] | [address] | | | TESTS | | | [...] + | [facility] [employer] | [address] | [place] [address] | | | SERVICES, LYDIA | LESLY [...] [facility] | [address] | [place] [address] | | | LYDIA RANGEL | LESLY [...] [facility] | [address] | [place] [address] | | | SERVICES, CORE | PARK [...] | | | LABORATORY | | | [place] | | | SERVICES, | | [...] the MDRD equation recommended by the | [facility] | | National Kidney Disease [...] [facility] | [address] | [place] [address] | | | LYDIA RANGEL | LESLY [...] [place] | [address] | [place], [place] | | | [facility] | [address] | [address] | | | TESTS | | | [...] AMES | [address] | [place], [place] | | | [facility] | [address] | [address] | | | TESTS | | | [...] [facility] | [address] | [place] [address] | | | SERVICES, CORE | PARK [...] | + + + + + | [facility] | [address] | [place] [address] | | | SERVICES, CORE | LESLY [...] | + + + + + | [facility] | [address] | [place] [address] | | | SERVICES, LYDIA | LESLY [...] [facility] | [address] | [place], [place] | | | [facility] | [facility] | [address] | | | TESTS | | | [...] [facility] | [address] | [place], [place] | | | [facility] | [address] | [address] | | | TESTS | | | [...] AMES | [address] | [place], [place] | | | [facility] | [facility] | [address] | | | TESTS | | | [...] | + + + + + | [facility] | [address] | [place] [address] | | | SERVICES, CORE | LESLY [...] [facility] | [address] | [place] [address] | | | SERVICES, CORE | PARK [...] CENTER [facility] | [address] | [place] [address] | | | SERVICES, CORE | PARK [...] [facility] | [address] | [place] [address] | | | SERVICES, LYDIA | [address] | | | + + + [...] [facility] | [address] | [place] [address] | | | SERVICES, CORE | PARK [...] | | | LABORATORY | | | [facility] [place] [facility] | | | SERVICES, | | [...] [facility] | [address] | [place] [address] | | | LYDIA RANGEL | LESLY [...] | + + + + + | [facility] | [address] | [place] [address] | | | LYDIA RANGEL | LESLY [...] (H) | 60 - 99 mg/dL | [facility] - | | [...] [facility] | [address] | [place], [place] | | | [facility] | [address] | [address] | | | TESTS | | | [...] | + + + + + | [facility] | [address] | [place] [address] | | | SERVICES, CORE | LESLY [...] [facility] | [address] | [place], [place] | | | [facility] | [address] | [address] | | | TESTS | | | [...] [facility] | [address] | [place], [place] | | | [facility] | [address] | [address] | | | TESTS | | | [...] DEPT OF | [address] | [place], [place] | | | CARDIOLOGY | [address] | [address] | | + + + + + [...] AMES | [address] | [place], [place] | | | [facility] | [address] | [address] | | | TESTS | | | [...] | | | LABORATORY | | | [facility] [facility] | | | SERVICES, | | [...] [facility] | [address] | [place] [address] | | | SERVICES, CORE | [address]ARK [...] [facility] | [address] | [place] [address] | | | SERVICES, CORE | PARK [...] | + + + + + | [facility] | [address] | [place] [address] | | | SERVICES, CORE | LESLY [...] AMES | [address] | [place], [place] | | | [facility] | [address] | [address] | | | TESTS | | | [...] [facility] | [address] | [place] [address] | | | SERVICES, CORE | PARK [...] [facility] | [address] [facility] | [place] [address] | | | LYDIA RANGEL | LESLY [...] [facility] | [address] | [place] [address] | | | SERVICES, CORE | LESLY [...] [facility] | [address] | [place] [address] | | | CLAIRE, LYDIA | LESLY [...] (H) | 60 - 99 mg/dL | [facility] - | | [...] [facility] | [address] | [place], [place] | | | [facility] | [address] | [address] | | | TESTS | | | [...] [facility] | [address] | [place] [address] | | | SERVICES, CORE | PARK [...] [facility] | [address] | [place] [address] | | | SERVICES, CORE | [address] | | | + + + + + MAGNESIUM, PLASMA (11/07/2015 3:17 AM PDT) + +-------+ + + + | Component | Value | Ref Range | Performed | Pathologist | | | | | At | Signature | + +-------+ + + + | MAGNESIUM,P | 1.9 | 1.8 - 2.5 mg/dL | [facility] | | | LASMA | | | [...] | + + + + + | [facility] | [address] [facility] | [place] [address] | | | SERVICES, CORE | PARK [...] | | | LABORATORY | | | [place] | | | SERVICES, | | [...] the MDRD equation recommended by the | [facility] | | National Kidney Disease [...] | + + + + + | [facility] | [address] | [place] [address] | | | SERVICES, CORE | PARK [...] ED | | | | | | gluing machine operator automatic at 12:33 AM by | | | [...] [facility] | [address] | [place], [place] | | | [facility] | [address] | [address] | | | TESTS | | | [...] + + | [facility] | [address] [facility] [address] | [place], [place] | | | [facility] | [facility] | [address] | | | TESTS | | | [...] [facility] | [address] | [place] [address] | | | CLAIRE, LYDIA | LESLY [...] + | [facility] | [address] [facility] | [place], [place] | | | CARDIOLOGY | [address] | [address] | | + + + + + [...] [facility] | [address] | [place] [address] | | | LYDIA RANGEL | LESLY [...] [facility] | [address] | [place] [address] | | | SERVICES, CORE | PARK [...] | | | LABORATORY | | | [place] | | | SERVICES, | | [...] + + | [facility] | [address] [facility] | [place] [address] | | | SERVICES, CORE | PARK [...] | + + + + + | [facility] | [address] | [place] [address] | | | SERVICES, CORE | [address] | | | + + + + + ED INFORMATION EXCHANGE (11/06/2015 1:26 PM PDT) + + + + + + | Component | Value | Ref Range | Performed | Pathologist | | | | | At | Signature | + + + + + + | [facility] | [id number] | | [facility] | | | | [id number] | | MEDICAL | | | | [...] | ---- 11/06/2015 | | | 13:25 Count Includes [facility] [place] [facility] | | | [address]. Referral; Cellulitis 09/28/2015 15:39 HADLEY Akbar | [...] -Pain in left lower leg 09/13/2015 14:54 [facility] | | | Hospital Emergency -Unspecified [...] | | | | | -Other long term care administrator (current) | | | drug therapy | | | -Allergy status | | | to penicillin ED VISIT COUNT (1 YR.) Visits Location | | | ------ --------- 1 [facility] | | | [place] 9 [facility] | | | Total Note: Visits indicate total known visits. | | | | | | --- | | + + + + + + + + | Performing | Address | City/State/Zipcode | Phone Number | | Organization | | | | + + + + + | [facility] | [address] | [place], [place] | [phone] | | [employer] | [address] | [address] | | + + + + + [...] 4:14 | | | | | dose, [facility] 11/08/15 at 1430 | | PM [...] 7:51 | | | | | dose, [place] 11/18/15 at 0730 | | AM PDT [...] | | First dose on [facility] 11/08/15 at | | PM PDT [...] | | | oral, ONCE, 1 dose, [facility] 11/08/15 | | PM PDT | [...] | | | | ONCE, 1 dose, [facility] 11/08/15 at 1900 | | PM [...] | | | | | 1 dose, [facility] 11/06/15 at 2115 | | PM [...]
--- OUTSIDE RECORDS SUMMARY | ~2019-12-02 | XMS | Encounter Summary ---
Demographics + + + | Address | [address] | | | [place] [address] | + + + | Home Phone [...] [place], [place] | | | | | [address] | | + + + + + | Ellie Vang | ECON | Unknown | | + + + + + Care Team Providers + +------+ + | Care Electric Train Driver Name | Role | Phone | [...] Flannery | | | | | | [place], [place] | | | | | | [address] | | | | | | [phone] | | | | | | | | +--------+---------+ + + + documented as of this encounter Visit Diagnoses Not on filedocumented in this encounter"
--- OUTSIDE RECORDS SUMMARY | ~2019-12-02 | XMS | Encounter Summary ---
Demographics + + + | Address | [address] | | | [place] [address] | + + + | Home Phone [...] | Organization | [facility] | | | and Jeffana [...] Providers + +------+ + | Care Epic Ambulatory Analyst Name | Role | Phone | + +------+ + PCP | Unavailable | + +------+ + Encounter Details +--------+ + + + + | Date | Type | Department | Care Team | Description | +--------+ + + + + | 10/20/ | Orders Only | [facility] | Conversion | | | 2017 | | NEPHROLOGY JESUS | Transaction, | | | | | [address] | Provider Unknown | | | | | [address] | | | | | | [address] | (Fax) | | | | | [phone] | | | +--------+ + + + [...] RICHEY | | | | | | [place] [address] | | | | | | [phone] | | | | | | | [...]
--- OUTSIDE RECORDS SUMMARY | ~2019-12-02 | XMS | Encounter Summary ---
Demographics + + + | Address | [address] | | | [place] [address] | + + + | Home Phone [...] [place], [place] | | | | | [address] | | + + + + + | Ellie Vang | ECON | Unknown | | + + + + + Care Team Providers + +------+ + | Care Frame Aligner Name | Role | Phone | + [...] | 2015 | Visit | Center at [facility] [address] | | (Primary Dx) | | | | [address] | | | | | | Mailcode: Center | | | | | | for Health and | | | | | | [facility] | | | | | | [place], [place] | | | | | | [address] | | | | | | [phone] | | | +--------+---------+ + + + [...] of Class: 2:00 until 3:00 (60 minutes [id number] with patient) OBJECTIVE: Height: Ht Readings from [...] or sharing information. Yes Yuli [address], [facility], [place] Pager# [phone] documented in this enc ounter Plan of [...] [place] | | | | | | [address] | | | | | | [phone] | | | | | | | | +--------+---------+ + + + documented as of this encounter Visit Diagnoses + + | Diagnosis | + + | Morbid obesity (HCC) - Primary Morbid obesity | + + documented in this encounter
--- OUTSIDE RECORDS SUMMARY | ~2019-12-02 | XMS | Encounter Summary ---
Demographics + + + | Address | [address] | | | [place] [address] | + + + | Home Phone [...] + | Katalina Padilla | ECON | [address] | | | | | [place], [place] | | | | | [address] | | + + + + + | Ellie Vang | ECON | Unknown | | + + + + + Care Team Providers + +------+ + | Care Dirt Bike Racer Name | Role | Phone | + [...] Physicians | | | | | | [facility] | [place] | | | | | | [place], [place] | Floor | | | | | | [address] | [place], [place] | | | | | | Phone: | [address] | | | | | | [phone] | Phone: | | | | | | | [phone] | | | | | | | Fax: | | | | | | | [phone] | +--------+--------+ + + + + Encounter [...] | [facility] [address] [place], | | | | | [address] | [place] [address] | | | | | [facility], | [phone] | | | | | [address] Floor | | | | | | [place], [place] | | | | | | [address] | | | | | | [phone] | | | +--------+---------+ + + + [...] Axel Gonzales MD - 03/06/2014 1:15 PM PDTFORMERLY [facility] FOLLOW UP Attending: [...] a HIDA scan to be done in [place] to verify that she does not have a pos t-operative surgical complication. We will call her with the results of her labs and imagin g. If these all come back normal she will need to follow up with her PCP to address her elisa sea/vomiting. - CBC and LFT's today - HIDA scan ordered, to be done in [place] - Will call patient once results are back. If normal, no need for follow up with EGS. The patient was seen and examined with Dr. Starr who agrees with the above assessment and janina Gonzales MD PGY-2 General Surgery Resident Department of General Surgery Pager: [phone] I saw and evaluated the patient. I agree with the findings and the plan of care as dequan han in the resident s note. PRADIP STARR MD [facility] AT [facility] [address] [facility] Mailcode: [id number] [place] [address] documented in this encoun ter Plan of Treatment +--------+---------+ + + + | Date | Type | Specialty | Care Team | Description | +--------+---------+ + + + | 03/15/ | Office | Cardiology | Randell Franks, | | | 2019 | Visit | | [address] | | | | | | [place], [place] | | | | | | [address] | | | | | | [phone] | | | | | | | [...] [facility] | [address] | [place] [address] | | | SERVICES, CORE | [address] | | | + + + + + documented in this encounter Visit Diagnoses + + | Diagnosis | + + | Cholecystitis - Primary Cholecystitis, unspecified | + + documented in this encounter
--- OUTSIDE RECORDS SUMMARY | ~2019-12-02 | XMS | Encounter Summary ---
Demographics + + + | Address | [address] | | | [place] [address] | + + + | Home Phone [...] [place], [place] | | | | | [address] | | + + + + + | Ellie Vang | ECON | Unknown | | + + + + + Care Team Providers + +------+ + | Care Manager Cath Lab Name | Role | Phone | + +------+ + | Fadi Goodrich DO | PCP | | + +------+ + Encounter Details +--------+ + + + + | Date | Type | Department | Care Team | Description | +--------+ + + + + | 08/16/ | Abstract | Digestive Health | Kathy Feldman, | | | 2013 | | Center at [facility] [address] | WOODWORK SALVAGE INSPECTOR [address] | | | | | [address] | [facility] 350 | | | | | Mailcode: Center | [place], [place] | | | | | [facility] and | [address] | | | | | [facility] 2 | [phone] | | | | | [place], [place] | | | | | | [address] | | | | | | [phone] | | | +--------+ + + + [...] [address] | | | | | | [place], [place] | | | | | | [address] | | | | | | [phone] | | | | | | | | +--------+---------+ + + + documented as of this encounter Visit Diagnoses Not on filedocumented in this encounter"
--- OUTSIDE RECORDS SUMMARY | ~2019-12-02 | XMS | Encounter Summary ---
Demographics + + + | Address | [address] | | | [place] [address] | + + + | Home Phone [...] [place], [place] | | | | | [address] | | + + + + + | Ellie Vang | ECON | Unknown | | + + + + + Care Team Providers + +------+ + | Care Expeditionary [employer] Combat Skills Name | Role | Phone | + +------+ + | Fadi Goodrich DO | PCP | | + +------+ + Encounter Details +--------+ + + + + | Date | Type | Department | Care Team | Description | +--------+ + + + + | 02/13/ | Abstract | Cardiology | Randell Franks, | | | 2015 | | Preventive at [facility] | MD [address] | | | | | [address] | [facility] [place] | | | | | Mailcode: CH9A | [address] | | | | | [facility] | [phone] | | | | | and Healing, | | | | | | Building [address] | | | | | | [facility] [place] | | | | | | [address] | | | | | | [phone] | | | +--------+ + + + [...] | | 2019 | Visit | | [address] | | | | | | [place], [place] | | | | | | [address] | | | | | | [phone] | | | | | | | | +--------+---------+ + + + documented as of this encounter Visit Diagnoses Not on filedocumented in this encounter"
--- OUTSIDE RECORDS SUMMARY | ~2019-12-02 | XMS | Encounter Summary ---
Demographics + + + | Address | [address] | | | [place] [address] | + + + | Home Phone [...] + + | Author | [facility] | | | and Jeffana | + + + | Organization | [facility] | | [...] Team Providers + +------+ + | Care Cupola Hoist Operator Name | Role | Phone | + +------+ + PCP | Unavailable | + +------+ + Encounter Details +--------+ + + + + | Date | Type | Department | Care Team | Description | +--------+ + + + + | 10/20/ | Orders Only | [facility] | Dharmesh Escobar, | | | 2016 | | NEPHROLOGY [place] | ASSISTANT GROCERY STORE MANAGER [address] | | | | | [address] | [address] | | | | | [address] [place], [place] | [place] | | | | | [address] | [address] | | | | | [phone] | [phone] | | | | | | | [...] F | | | | | | [place] [address] | | | | | | [phone] | | | | | | | [...]
--- OUTSIDE RECORDS SUMMARY | ~2019-12-02 | XMS | Encounter Summary ---
Demographics + + + | Address | [address] | | | [place] [address] | + + + | Home Phone [...] + | Organization | [facility] | | | and Jeffana [...] Team Providers + +------+ + | Care Oven Operator Name | Role | Phone | + +------+ + PCP | Unavailable | + +------+ + Encounter Details +--------+ + + + + | Date | Type | Department | Care Team | Description | +--------+ + + + + | 03/ | Orders Only | [facility] | Dharmesh Escobar, | | | 2018 | | NEPHROLOGY [place] | DIGITAL ENGINEER [address] | | | | | [address] | [address] | | | | | [address] [place], [place] | [place] | | | | | [address] | [address] | | | | | [phone] | [phone] | | | | | | | [...] F | | | | | | [place] [address] | | | | | | [phone] | | | | | | | [...] | | | LAB | | | [place]IZ[place] | | | | | + +---------+ [...]
--- OUTSIDE RECORDS SUMMARY | ~2019-12-02 | XMS | Encounter Summary ---
Demographics + + + | Address | [address] | | | [place] [address] | + + + | Home Phone [...] + | Katalina Padilla | ECON | [address] | | | | | [place], [place] | | | | | [address] | | + + + + + | Ellie Vang | ECON | Unknown | | + + + + + Care Team Providers + +------+ + | Care Truck Manager Name | Role | Phone | [...] | [address] | [facility] [place] | | | | | Mailcode: CH9A | [address] | | | | | [facility] | [phone] | | | | | and Healing, | | | | | | Building [address] | | | | | | [facility] [place] | | | | | | [address] | | | | | | [phone] | | | +--------+ + + + [...] | | 2019 | Visit | | [address] | | | | | | [place], [place] | | | | | | [address] | | | | | | [phone] | | | | | | | | +--------+---------+ + + + documented as of this encounter Visit Diagnoses Not on filedocumented in this encounter"
--- OUTSIDE RECORDS SUMMARY | ~2019-12-02 | XMS | Encounter Summary ---
Demographics + + + | Address | [address] | | | [place] [address] | + + + | Home Phone [...] [place], [place] | | | | | [address] | | + + + + + | Ellie Vang | ECON | Unknown | | + + + + + Care Team Providers + +------+ + | Care Craniologist Name | Role | Phone | + [...] | | | | | obstruction | [place], | Mailcode: | | | | | or gangrene | [place] | Center for | | | | | Abdominal | [address] | Health and | | | | | pain, | Phone: | Healing, | | | | | unspecified | | Building 2 | | | | | abdominal | Fax: | [place], [place] | | | | | location | [phone] | [address] | | | | | Procedures | | Phone: | | | | | CONSULT TO | | [phone] | | | | | SURGERY - | | Fax: | | | | | GENERAL | | [phone] | +--------+--------+ + + + + Encounter [...] | | [address] | Ave [place], [place] | | | | | Mailcode: [place] | [address] | | | | | [facility] and | | | | | | [facility] 2 | | | | | | [facility] [place] | | | | | | [address] | | | | | | | [...] [address]ann[address] | | | | | | [place], [place] | | | | | | [address] | | | | | | [phone] | | | | | | | [...]
--- OUTSIDE RECORDS SUMMARY | ~2019-12-02 | XMS | Encounter Summary ---
Demographics + + + | Address | [address] | | | [place] [address] | + + + | Home Phone [...] [place], [place] | | | | | [address] | | + + + + + | Ellie Vang | ECON | Unknown | | + + + + + Care Team Providers + +------+ + | Care Cadmium Burner Name | Role | Phone | + [...] floor | | | | | | [place], [place] | | | | | | [address] | | | +--------+ + + + [...] Flannery | | | | | | [place], [place] | | | | | | [address] | | | | | | [phone] | | | | | | | | +--------+---------+ + + + documented as of this encounter Visit Diagnoses Not on filedocumented in this encounter"
--- OUTSIDE RECORDS SUMMARY | ~2019-12-02 | XMS | Encounter Summary ---
Demographics + + + | Address | [address] | | | [place] [address] | + + + | Home Phone [...] + | Katalina Padilla | ECON | [address] | | | | | [place], [place] | | | | | [address] | | + + + + + | Ellie Vang | ECON | Unknown | | + + + + + Care Team Providers + +------+ + | Care Linter Saw Sharpener Name | Role | Phone | + [...] | | 2020 | | Preventive at [facility] | MD [address] | | | | | [address] | [place], [place] | | | | | Mailcode: CH9A | [address] | | | | | [facility] | [phone] | | | | | and [facility], | | | | | | Building 1 | | | | | | [facility] [place] | | | | | | [address] | | | | | | [phone] | | | +--------+ + + + [...] [place] | | | | | | [address] | | | | | | [phone] | | | | | | | | +--------+---------+ + + + documented as of this encounter Visit Diagnoses Not on filedocumented in this encounter"
--- OUTSIDE RECORDS SUMMARY | ~2019-12-02 | XMS | Encounter Summary ---
Demographics + + + | Address | [address] | | | [place] [address] | + + + | Home Phone | | + + + | Preferred Language | Unknown | + + + | Marital Status | | + + + | Gnosticism Affiliation | Unknown | + + + | Race | Unknown | + + + | Ethnic Group | Unknown | + + + Author + + + | Author | [facility] | | | and Jeffana | + + + | Organization | [facility] | | | and [...] Team Providers + +------+ + | Care Permanent Mold Supervisor Name | Role | Phone | [...] | | | | | previous | [place], | [address] | | | | | audiogram | [place] [address] | [place], [place] | | | | | Procedures | Phone: | [address] Phone: | | | | | OFFICE VISIT | [phone] | [phone] | | | | | REGULAR | Fax: | Fax: | | | | | | [phone] | [phone] | +--------+--------+ + + + + Encounter [...] | | [address] | [place] [address] | Pressure sensation | | | | [place] [address] | [phone] | in both ears | | | | [place] [address] | | | | | | [phone] | | | +--------+---------+ + + + [...] [address] | | | | | | [place] [address] | | | | | | [phone] | | | | | | | [...]
--- OUTSIDE RECORDS SUMMARY | ~2019-12-02 | XMS | Encounter Summary ---
Demographics + + + | Address | [address] | | | [place] [address] | + + + | Home Phone [...] [place], [place] | | | | | [address] | | + + + + + | Ellie Vang | ECON | Unknown | | + + + + + Care Team Providers + +------+ + | Care Automotive Manager Name | Role | Phone | [...] Diabetes & | Morbid | Kathy Feliciano, NURSING PROGRAM COORDINATOR | [address] | | | | Metabolism | obesity | [address] | Pavilion | | | | | (HCC) | [address], | Loop | | | | | Procedures | [address] | Physician's | | | | | CONSULT TO | [place], [place] | Pavilion | | | | | ENDO | [address] | Physician's | | | | | [address] | Phone: | Pavilion | | | | | [address] | [phone] | [place], [place] | | | | | | Fax: | [address] | | | | | | [phone] | Phone: | | | | | | | [phone] | | | | | | | Fax: | | | | | | | [phone] | +--------+--------+ + + + + Encounter Details +--------+ + + + + | Date | Type | Department | Care Team | Description | +--------+ + + + + | 11/15/ | Documentati | Digestive Health | Kathy Feldman, | | | 2012 | on | Center at [facility] [address] | NURSING PROGRAM COORDINATOR [address] | | | | | [address] | [facility] 350 | | | | | Mailcode: Center | [place], [place] | | | | | [facility] and | [address] | | | | | [facility] 2 | [phone] | | | | | [place], [place] | | | | | | [address] | | | | | | [phone] | | | +--------+ + + + [...] [address]ann[address] | | | | | | [place], [place] | | | | | | [address] | | | | | | [phone] | | | | | | | | +--------+---------+ + + + documented as of this encounter Visit Diagnoses + + | Diagnosis | + + | Morbid obesity (HCC) - Primary Morbid obesity | + + documented in this encounter"
--- OUTSIDE RECORDS SUMMARY | ~2019-12-02 | XMS | Encounter Summary ---
Demographics + + + | Address | [address] | | | [place] [address] | + + + | Home Phone [...] [place], [place] | | | | | [address] | | + + + + + | Ellie Vang | ECON | Unknown | | + + + + + Care Team Providers + +------+ + | Care Investigation Officer Name | Role | Phone | [...] + + | 01/01/ | Emergency | [facility] Emergency | Fide Hester | | | 2017 - | | Department [address] | MD Raza [address] [facility] | | | | | [address] | [address] | | | 01/02/ | | [facility] | [place], [place] | | | 2017 | | [place], [place] | [address] | | | | | [address] | [phone] | | | | | [phone] | | | | | | | Jaime Yee, | | | | | | ANP [address] | | | | | | [facility] [address] | | | | | | [place], [place] | | | | | | [address] | | | | | | [phone] | | | | | | | | | | | | Sheree Aguiar MD | | | | | | [address] | | | | | | [place], [place] | | | | | | [address] | | | | | | | | | | | | Felix Cardoza, | | | | | | TAKER DOWN [address] | | | | | | [facility] | | | | | | [place], [place] | | | | | | [address] | | | | | | [phone] | | | | | | | [...] ready for discharge. Thank you for choosing [facility] for your healthcare needs. Abdominal Hernia [...] living will and a durable power of estate planning attorney for health care. Bring a copy [...] apply lotions, perfume s, deodorants, or nail nepalese. Do not shave the surgical site yourself. [...] driving, and getting back to your [facility] routine. When should you call your [...] Repair: Before Your Surgery", log into your Clip a ccount at [email or web address]. You can enter U288 in the "[employer] Library" search box . Not on Clip? Review the Pictelat section of your After Visit Summary for directions on anjel aguero to sign up. Current as of: March 04, 2016 Content Version: 11.2 4902-6226 [employer]. Care instructions adapted under license by [facility]. If you have questions about a medical condition or this instr uction, always ask your healthcare professional. [email or web address] disclaims any curly anty or liability for [...] changes in the way you eat. An photo lab specialist to help you be more active [...] Prepare for Weight-Loss Surgery", log into your Clip account at [email or web address]. You can enter C413 in the "[employer] Library" s earch box. Not on Clip? Review the Clip section of your After Visit Summary for directions on anjel aguero to sign up. Current as of: May 08, 2016 Content Version: 11.2 2474-3227 [email or web address]. Care instructions adapted under license by [facility]. If you have questions about a medical condition or this instr uction, always ask your healthcare professional. [email or web address] disclaims any curly anty or liability for [...] | | 0 | | | | CRB&GSW-M6-NDQ61-GEN | mouth two times | | | [...] - 01/02/2017 7:49 AM PDT [facility] DEPARTMENT OF SURGERY EMERGENCY GENERAL SURGERY Division [...] wall hernias, laci hobbs was flown from [place] with abdominal pain from a recurrent, reducible [...] uss with Dr. Moore. Mary Ball MD q02001 [facility] [address] [facility] [place] [address] documented in this en counter Plan of Treatment +--------+---------+ + + + | Date | Type | Specialty | Care Team | Description | +--------+---------+ + + + | 03/15/ | Office | Cardiology | Randell Franks, | | | 2019 | Visit | | [address] | | | | | | [place], [place] | | | | | | [address] | | | | | | [phone] | | | | | | | [...] AMES | [address] | [place], [place] | | | [place] [facility] | [address] | [address] | | | TESTS | | | [...] the MDRD equation recommended by the | [facility] | | National Kidney Disease Education [...] + | [facility] | [address] | [place] [address] | | | LYDIA RANGEL | CLARENCE [...] KWAKU | [address] | [place], [place] | | | [place] [facility] | [facility] | [address] | | | TESTS | | | [...] [facility] | [address] | [place] [address] | | | SERVICES, CORE | PARK [...] | + + + + + | [facility] | [address] | [place] [address] | | | SERVICES, CORE | CLARENCE [...] | + + + + + | [facility] - | [address] | [place] [address] | | | [place] | | | [...] [facility] | [address] | [place] [address] | | | CLAIRE, LYDIA | CLARENCE [...] 26 | 23 - 29 mmol/L | [facility] - | | | TC02 | | | [place] | | | | | | JUSTINE DAWN | | | | | | OF CARE | | | | | | TESTS | | + + + + + + | ED BG POC | 7.30 (L) | 7.35 - 7.45 | [facility] - | | | PH | [...] AMES | [address] | [place], [place] | | | [place] OF CARE | [address] | [address] | | | TESTS | | | [...] [facility] | [address] | [place] [address] | | | SERVICES, | [address] [...] | + + + + + | [employer] res[employer]io | [address] | [place] [address] | | | SERVICES, | [address] [...] + + | [facility] | [address] | [place] [address] | | | SERVICES, CORE | CLARENCE [...] [facility] | [address] | [place] [address] | | | SERVICES, CORE | PARK [...] [facility] | [address] | [place] [address] | | | SERVICES, CORE | [address] | | | + + + + + ED INFORMATION EXCHANGE (01/01/2017 8:22 AM PDT) + + + + + + | Component | Value | Ref Range | Performed | Pathologist | | | | | At | Signature | + + + + + + | [facility] | [id number] | | [facility] | | | | [id number] | | MEDICAL | | | | [...] ---- | | | RADHA GOODRICH at [facility] | | | [facility] Unknown Primary Care | | | Unknown - Current Radha Goodrich DO | | | [phone] Primary Care | | | Unknown - Current | | + + + + + + + + | Performing | Address | City/State/Zipcode | Phone Number | | Organization | | | | + + + + + | [facility] | [address] | [place], [place] | [phone] | | TECHNOLOGIES | [address] | [address] | | + + + + + [...] rectal, | | | DAILY NEEDED, Starting [facility] | | | 01/01/17 at 2301, [...] mL, intravenous, NEEDED, | | | Starting [facility] 01/01/17 at 1751, | | | [...] | | First dose on [facility] 01/01/17 at 2100, | | | [...] 17 6:19 | | | | | [facility] 01/01/17 at 1830 | | PM [...] mg, intramuscular, | | | NEEDED, Starting [facility] 01/01/17 at | | | 1751, Until Thu01/02/17 at 1734, | | | CBG less than 70 mg/dL per Adult | | | Hypoglycemia Protocol | | + +---+ | | | + +---+ | glucose chewable tablet 16 g | | | 16 g, oral, NEEDED, Starting | | | [facility] 01/01/17 at 1751, Until Thu | [...] AM PDT | | | | | [facility] 01/01/17 at 1944, Until | | [...] | | ONCE, 1 dose, [facility] 01/01/17 at 0945 | | AM [...]
--- OUTSIDE RECORDS SUMMARY | ~2019-12-02 | XMS | Encounter Summary ---
Demographics + + + | Address | [address] | | | [place] [address] | + + + | Home Phone [...] [place], [place] | | | | | [address] | | + + + + + | Ellie Vang | ECON | Unknown | | + + + + + Care Team Providers + +------+ + | Care Train Caller Name | Role | Phone | + [...] ENDOSCOPY | | 2017 | | [facility] | [address] | | | | | Rd [facility] | [place], [place] | | | | | Hospital Admitting | [address] | | | | | Desk Located on the | [phone] | | | | | 9th floor | | | | | | [place], [place] | | | | | | [address] | | | +--------+---------+ + + + [...] the endoscopy department toll free ext. [phone] or After business hours or on weekends and holiday Hospital Hat Lining Blocker toll free [phone] ext. [phone] and have the GI doctor educational psychologist paged. The provider who performed your procedure [...] | | 0 | | | | CRB&NPM-W2-EHI17-GEN | mouth two times | | | [...] 2:35 PM PST PRE PROCEDURE NOTE: MR# [id number] Subjective: Elzbieta Cristina is a 43 y.o. [...] 03/15/ | Office | Cardiology | Randell rFanks, | | | 2019 | Visit | | [address] | | | | | | [place], [place] | | | | | | [address] | | | | | | [phone] | | | | | | | [...] -----+ | MRN: | [facility] | | [id number] Date: 06/23/2018Patient Name: Elzbieta Curtis #: | MORGAN Y | | [id number] of : 1975CSN: [id number] Type: | | | AmbulatoryRoom: SORProcedure: Upper GI | | | endoscopyIndications: Nausea with vomiting, Status post | | | Txij-de-NUbqgdvujv: KALEB WILCOX MD (Doctor), JOSE | | | NASIMA Jewelry Casting Model Maker | | | (Jewelry Casting Model Maker)Referring MD: DANIELLE GARCÍAPRequestdonya | | | Provider: [...] | | | The Olympus [id number] Gastroscope #[id number] was | | | introduced through the [...] endoscope without resistance. The | | | cfnfb-gf-uljmazq limb was characterized by healthy appearing | [...] Initiated On: | | | 06/23/2018 3:58 [facility] Letter to: FADI MICHAEL DO | [...] [place] | [address] | [place], [place] | | | [place] OF CARE | [address] | [address] | | | TESTS | | | [...] | | Until [facility] 06/24/18 at 0027, | | | [...]
--- OUTSIDE RECORDS SUMMARY | ~2019-12-02 | XMS | Encounter Summary ---
Demographics + + + | Address | [address] | | | [place] [address] | + + + | Home Phone [...] [facility] | [...] Team Providers + +------+ + | Care Ink Jet Operator Name | Role | Phone | + +------+ + PCP | Unavailable | + +------+ + Encounter Details +--------+ + + + + | Date | Type | Department | Care Team | Description | +--------+ + + + + | 04/14/ | Orders Only | [facility] | Conversion | | | 2015 | | NEPHROLOGY [place] | Transaction, | | | | | [address] | Provider Unknown | | | | | [address] | | | | | | [address] | (Fax) | | | | | [phone] | | | +--------+ + + + [...] [address]HE[address] | | | | | | [place] [address] | | | | | | [phone] | | | | | | | [...] - 1.030 | EXTERNAL | | | [place], | | | LAB | | | [...] + + + | Red Blood | 5.38 (A) | 3.8 - 5.1 [...]
--- OUTSIDE RECORDS SUMMARY | ~2019-12-02 | XMS | Encounter Summary ---
Demographics + + + | Address | [address] | | | [place] [address] | + + + | Home Phone [...] + | Katalina Padilla | ECON | [address] | | | | | [place], [place] | | | | | [address] | | + + + + + | Ellie Vang | ECON | Unknown | | + + + + + Care Team Providers + +------+ + | Care Carrier Washer Name | Role | Phone | [...] 2013 | | Center at [facility] [address] | POWER TOOL REPAIRER [address] | | | | | [address] | [facility] 350 | | | | | Mailcode: Center | [place], [place] | | | | | for Health and | [address] | | | | | [facility] 2 | [phone] | | | | | [place], [place] | | | | | | [address] | | | | | | [phone] | | | +--------+ + + + [...] [address] | | | | | | [place], [place] | | | | | | [address] | | | | | | [phone] | | | | | | | | +--------+---------+ + + + documented as of this encounter Visit Diagnoses Not on filedocumented in this encounter"
--- OUTSIDE RECORDS SUMMARY | ~2019-12-02 | XMS | Encounter Summary ---
Demographics + + + | Address | [address] | | | [place] [address] | + + + | Home Phone [...] [place], [place] | | | | | [address] | | + + + + + | Ellie Vang | ECON | Unknown | | + + + + + Care Team Providers + +------+ + | Care Physician Coding Specialist Name | Role | Phone | + +------+ + | Fadi Goodrich DO | PCP | | + +------+ + Encounter Details +--------+------+ + + + | Date | Type | Department | Care Team | Description | +--------+------+ + + + | 06/16/ | Lab | Laboratory at [facility] | | Morbid obesity with | | 2012 | | [address] | | BMI of 70 and over, | | | | [place], [place] | | adult (HCC); Vitamin | | | | [address] | | D deficiency | | | | [phone] | | disease; | | | | [...] [address] | | | | | | [place], [place] | | | | | | [address] | | | | | | [phone] | | | | | | | [...] | | | | | obesity ([facility]) PCOS | | | | | [...] at | | | | | | [employer] Test | | | | | | developed and | | | | | | characteristics | | | | | | determined by | | | | | | [facility]. See | | | | | | Compliance Statement B: | | | | | | [employer]/CSPerformed | | | | | | by [employer] [facility],[address] | | | | | | [facility] [place], [facility],[place] | | | | | | [address] | | | | | | [phone].Sernovalab. | | | | | | com, [...] B: | | | | | | [employer]/CS | | | | + + + [...] | [facility] | | [address] | | + + + + + [...]
--- OUTSIDE RECORDS SUMMARY | ~2019-12-02 | XMS | Encounter Summary ---
Demographics + + + | Address | [address] | | | [place] [address] | + + + | Home Phone [...] [place], [place] | | | | | [address] | | + + + + + | Ellie Vang | ECON | Unknown | | + + + + + Care Team Providers + +------+ + | Care Armor Reconnaissance Vehicle Crewman Name | Role | Phone | [...] | Pain | Diagnoses | Analisa Georges Chick Sexer Psych | | | | Management | Morbid | DANIELLE BrunerP | [address] | | | | | obesity with | [address] | | | | | BMI of [address] | Mailcode: | | | | | and over, | [place], [place] | [facility] | | | | | adult (HCC) | [address] | for Health | | | | | Procedures | Phone: | and Healing, | | | | | CONSULT TO | [phone] | Building 1, | | | | | PAIN | Fax: | 15th Floor | | | | | MANAGEMENT | [phone] | [place], [place] | | | | | [place] | | [address] | | | | | PSYCHIATRIC | | Phone: | | | | | DIAGNOSTIC | | [phone] | | | | | EVAL, NO MED | | Fax: | | | | | [facility] [place] | | [phone] | | | | | PSYCH TSTNG [...] | [facility] | | | with FOOD PREPARATION WORKER | | hypertension | [address] | [address] | | | | | Right | [address] | [address] | | | | | heart | [place], [place] | Mailcode: | | | | | failure | [address] | Center for | | | | | ([facility]) Type | Phone: | Health and | | | | | 2 diabetes | [phone] | Healing, | | | | | mellitus | Fax: | Building 2 | | | | | without | [phone] | [place], [place] | | | | | complication | | [address] | | | | | , with | | Phone: | | | | | long-term | | [phone] | | | | | current use | | Fax: | | | | | of insulin | | [phone] | | | | | ([facility] [...] | | [address] | Ave [place], [place] | adult ([facility]) (Primary | | | | Mailcode: Center | [address] | Dx); Chronic | | | | for Health and | | 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 - 02/02/2017 9:00 AM PDTPlan: The following [...] to your private appointme nt with the gastroenterology professor. These classes will be scheduled apporoximately 1 month apart to allow time for you to put the teaching into action. Please call [phone] + Labs needed: Pre op: drug screen [...] are done + EKG: Please Have your aircraft painter do the eval and send it to us + Pre-op Psychological Evaluation: Your referral is at [facility], The Pain Management Office will call [...] be safely completed. + Sign up for KIXEYE so that we can communicate easily back and forth Once the above list is completed and copies have been received by our office, we will submi t for insurance authorization then schedule with the surgeon. KAIN De Dios DNP, LENDING ACTIVITIES SUPERVISOR Nurse Practitioner for Bariatric Surgery [facility] | [address] | [place], [place] | [address] | documented in this encounter Progress Notes Shereen Georges ACNP - 02/02/2017 9:00 AM PDTFormatting of this note might be different f rom the original. BARIATRIC INITIAL VISIT Provider: Shereen Pinto DNP, KAIN, LENDING ACTIVITIES SUPERVISOR Referring Provider: Fadi Goodrich DO Reason for [...] t loss. Consults: Cardiology: Dr. Edson [facility] Chain Hoist Operator: Nickie : [facility] Paula But comes to magen Mapper at [facility]: Dr. Zhong for weight loss medication Faith [...] once daily., Disp : , Rfl: CALCIUM [id number]-GENIS ORAL, Take 2 tablets by mouth two [...] Andie Brian Incisional hernia repair 03/01/2015 [facility]/ Dr. Cantu. Primary fascial closure [...] History Narrative Updated 11/09/15 She lives in [place] with her mother and her sister (also her caregiver) lives in an [facility]. She has 2 grandchildren (age 4 and 7) who live with her daughter and son-in-law Her boyfriend lives in [place] Family History Problem Relation Heart Attack Father [...] extre mity edema, hypertension, hyperlipidemia. Denies CHF, [place], ischemic heart disease, or pulmon nikki hypertension. [...] years without success. She qual[facility] to control co-morbidities. [...] management, and was referred as well to green jobs trainer. Plan: Request that her aircraft painter clear her, and make recommendations 3. [...] The following has been provided to Elzbieta rCistina You can over eat ANY of the [...] to your private appointme nt with the gastroenterology professor. These classes will be scheduled apporoximately 1 month apart to allow time for you to put the teaching into action. Please call [phone] + Labs needed: lipids, CBC, CMP, TSH, [...] are done + EKG: Please Have your aircraft painter do the eval and send it to us + Pre-op Psychological Evaluation: Your referral is at [facility], The Pain Management Office will call [...] be safely completed. + Sign up for KIXEYE so that we can communicate easily back and forth Once the above list is completed and copies have been received by our office, we will submi t for insurance authorization then schedule with the surgeon. KAIN De Dios DNP, LENDING ACTIVITIES SUPERVISOR Nurse Practitioner for Bariatric Surgery [facility] | [address] | [place] | [address] | documented in this encounter Plan of Treatment +--------+---------+ + + + | Date | Type | Specialty | Care Team | Description | +--------+---------+ + + + | 03/15/ | Office | Cardiology | Randell Zhong, | | | 2019 | Visit | | MD [address] | | | | | | [place], [place] | | | | | | [address] | | | | | | [phone] | | | | | | | [...]
--- OUTSIDE RECORDS SUMMARY | ~2019-12-02 | XMS | Encounter Summary ---
Demographics + + + | Address | [address] | | | [place] [address] | + + + | Home Phone [...] [place], [place] | | | | | [address] | | + + + + + | Ellie Vang | ECON | Unknown | | + + + + + Care Team Providers + +------+ + | Care Fitness Sales Associate Name | Role | Phone | + +------+ + | Fadi Goodrich DO | PCP | | + +------+ + Encounter Details +--------+ + + + + | Date | Type | Department | Care Team | Description | +--------+ + + + + | 06/02/ | Telephone | Digestive Health | Ronna Clarke, | | | 2018 | | Center at [facility] [address] | ACNP [address] | | | | | [address] | Ave [place], [place] | | | | | Mailcode: [place] | [address] | | | | | for Health and | [phone] | | | | | [facility] 2 | | | | | | [place], [place] | | | | | | [address] | | | | | | | [...] [place] | | | | | | [address] | | | | | | [phone] | | | | | | | | +--------+---------+ + + + documented as of this encounter Visit Diagnoses Not on filedocumented in this encounter"
--- OUTSIDE RECORDS SUMMARY | ~2019-12-02 | XMS | Encounter Summary ---
Demographics + + + | Address | [address] | | | [place] [address] | + + + | Home Phone [...] [place], [place] | | | | | [address] | | + + + + + | Ellie Vang | ECON | Unknown | | + + + + + Care Team Providers + +------+ + | Care Revenue Stamper Name | Role | Phone | [...] [place] | | | | | | [address] | | | | | | [phone] | | | | | | | | +--------+---------+ + + + documented as of this encounter Visit Diagnoses Not on filedocumented in this encounter"
--- OUTSIDE RECORDS SUMMARY | ~2019-12-02 | XMS | Encounter Summary ---
Demographics + + + | Address | [address] | | | [place] [address] | + + + | Home Phone [...] [place], [place] | | | | | [address] | | + + + + + | Ellie Vang | ECON | Unknown | | + + + + + Care Team Providers + +------+ + | Care Press Assistant Name | Role | Phone | [...] | | | [address] | [place], [place] | | | | | Mailcode: [place] | [address] | | | | | [facility] Health and | | | | | | [facility] 2 | | | | | | [place], [place] | | | | | | [address] | | | | | | | [...] [address] | | | | | | [place] | | | | | | [address] | | | | | | [phone] | | | | | | | | +--------+---------+ + + + documented as of this encounter Visit Diagnoses Not on filedocumented in this encounter"
--- OUTSIDE RECORDS SUMMARY | ~2019-12-02 | XMS | Encounter Summary ---
Demographics + + + | Address | [address] | | | [place] [address] | + + + | Home Phone [...] [place], [place] | | | | | [address] | | + + + + + | Ellie Vang | ECON | Unknown | | + + + + + Care Team Providers + +------+ + | Care School Boat Driver Name | Role | Phone | [...] | | Center at [facility] [address] | MD Jor[address] | | | | | [address] | [address] | | | | | Mailcode: Center | [place], [place] | | | | | [facility] and | [address] | | | | | [facility] 2 | [phone] | | | | | [place], [place] | | | | | | [address] | | | | | | [phone] | | | +--------+ + + + [...] [place] | | | | | | [address] | | | | | | [phone] | | | | | | | | +--------+---------+ + + + documented as of this encounter Visit Diagnoses Not on filedocumented in this encounter"
--- OUTSIDE RECORDS SUMMARY | ~2019-12-02 | XMS | Encounter Summary ---
Demographics + + + | Address | [address] | | | [place] [address] | + + + | Home Phone [...] [place], [place] | | | | | [address] | | + + + + + | Ellie Vang | ECON | Unknown | | + + + + + Care Team Providers + +------+ + | Care Graphite Disk Assembler Name | Role | Phone | [...] | | | | | | [facility] | | | | | | [facility] Admitting | | | | | | Desk Located on the | | | | | | 9th floor | | | | | | [place], [place] | | | | | | [address] | | | +--------+ + + + [...] [address] | | | | | | [place], [place] | | | | | | [address] | | | | | | [phone] | | | | | | | [...]
--- OUTSIDE RECORDS SUMMARY | ~2019-12-02 | XMS | Encounter Summary ---
Demographics + + + | Address | [address] | | | [place] [address] | + + + | Home Phone [...] [place], [place] | | | | | [address] | | + + + + + | Ellie Vang | ECON | Unknown | | + + + + + Care Team Providers + +------+ + | Care Maintenance Mechanic Name | Role | Phone | + +------+ + | Kenyatta Cardenas MD | PCP | | + +------+ + Encounter Details +--------+ + + + + | Date | Type | Department | Care Team | Description | +--------+ + + + + | 03/01/ | Procedure | Diagnostic Imaging | | | | 2019 | Pass | Services at [facility] | | | | | | [address] | | | | | | Lesly ARBOLEDA | | | | | | [facility], [address] [place] [address] | | | | | | [place], [place] | | | | | | [address] | | | | | | [phone] | | | +--------+ + + + [...] [address]ann[address] | | | | | | [place], [place] | | | | | | [address] | | | | | | [phone] | | | | | | | | +--------+---------+ + + + documented as of this encounter Visit Diagnoses Not on filedocumented in this encounter"
--- OUTSIDE RECORDS SUMMARY | ~2019-12-02 | XMS | Encounter Summary ---
Demographics + + + | Address | [address] | | | [place] [address] | + + + | Home Phone [...] + | Organization | [facility] | | | and [...] Providers + +------+ + | Care Tank Washer Name | Role | Phone | [...] + + | 06/21/ | Telephone | [facility] | Christian Dawson, | Pre-Op (confirm | | 2019 | | CENTER CV INTRA OP | MD Saumya Pandya | arrival for 06/22 | | | | [address] | [address] | procedure) | | | | [place], [place] | [place] [address] | | | | | [address] | [phone] | | | | | [phone] | | | +--------+ + + + [...] | 2020 | Visit | | Toshia, [employer] [address] | | | | | | [address] | | | | | | [place] [address] | | | | | | [phone] | | | | | | | | +--------+---------+ + + + documented as of this encounter Visit Diagnoses Not on filedocumented in this encounter"
--- OUTSIDE RECORDS SUMMARY | ~2019-12-02 | XMS | Encounter Summary ---
Demographics + + + | Address | [address] | | | [place] [address] | + + + | Home Phone [...] [place], [place] | | | | | [address] | | + + + + + | Ellie Vang | ECON | Unknown | | + + + + + Care Team Providers + +------+ + | Care Wafer Slicer Name | Role | Phone | + +------+ + | Fadi Goodrich DO | PCP | | + +------+ + Encounter Details +--------+ + + + + | Date | Type | Department | Care Team | Description | +--------+ + + + + | 10/27/ | Abstract | Digestive Health | Clinic, Surgery | | | 2018 | | [place] [facility] [address] | | | | | | [address] | | | | | | Mailcode: [place] | | | | | | [facility] Health and | | | | | | [facility] 2 | | | | | | [place], [place] | | | | | | [address] | | | | | | [phone] | | | +--------+ + + + [...] [address]ann[address] | | | | | | [place], [place] | | | | | | [address] | | | | | | [phone] | | | | | | | | +--------+---------+ + + + documented as of this encounter Visit Diagnoses Not on filedocumented in this encounter"
--- OUTSIDE RECORDS SUMMARY | ~2019-12-02 | XMS | Encounter Summary ---
Demographics + + + | Address | [address] | | | [place] [address] | + + + | Home Phone [...] | Organization | [facility] | | | and [...] Providers + +------+ + | Care Manager Strategy Name | Role | Phone | + +------+ + PCP | Unavailable | + +------+ + Encounter Details +--------+ + + + + | Date | Type | Department | Care Team | Description | +--------+ + + + + | 04/14/ | Orders Only | [facility] | Conversion | | | 2015 | | NEPHROLOGY JESUS | Transaction, | | | | | [address] | Provider Unknown | | | | | [address] [place] | | | | | | [address] | (Fax) | | | | | [phone] | | | +--------+ + + + [...] [address] | | | | | | [place] [address] | | | | | | [phone] | | | | | | | [...] - 1.030 | EXTERNAL | | | [place], | | | LAB | | | [...]
--- OUTSIDE RECORDS SUMMARY | ~2019-12-02 | XMS | Encounter Summary ---
Demographics + + + | Address | [address] | | | [place] [address] | + + + | Home Phone [...] [place], [place] | | | | | [address] | | + + + + + | Ellie Vang | ECON | Unknown | | + + + + + Care Team Providers + +------+ + | Care Child Care Nurse Name | Role | Phone | + +------+ + | Fadi Goodrich DO | PCP | | + +------+ + Reason for Visit + + + | Reason | Comments | + + + | Medical Records | Letter from case maker. | | Review | | + + + Encounter Details +--------+ + + + + | Date | Type | Department | Care Team | Description | +--------+ + + + + | 11/08/ | Abstract | Digestive Health | Shereen Georges, | Medical Records | | 2014 | | Center at [facility] [address] | ACNP [address] | Review (Letter from | | | | [address] | [place], [place] | case maker. ) | | | | Mailcode: [place] | [address] | | | | | [facility] Health and | [phone] | | | | | [place] [address] | | | | | | [place], [place] | | | | | | [address] | | | | | | [phone] | | | +--------+ + + + [...] [address] | | | | | | [place], [place] | | | | | | [address] | | | | | | [phone] | | | | | | | | +--------+---------+ + + + documented as of this encounter Visit Diagnoses Not on filedocumented in this encounter"
--- OUTSIDE RECORDS SUMMARY | ~2019-12-02 | XMS | Encounter Summary ---
Demographics + + + | Address | [address] | | | [place] [address] | + + + | Home Phone [...] + | Katalina Padilla | ECON | [address] | | | | | [place], [place] | | | | | [address] | | + + + + + | Ellie Vang | ECON | Unknown | | + + + + + Care Team Providers + +------+ + | Care Telephone Advice Nurse Name | Role | Phone [...] | Visit | Center at [facility] [address] | [address] [facility] | obesity ([facility]), BMI | | | | [facility] | [facility] [address] | 88 (Primary Dx); | | | | for [employer] and | [place], [place] | Type 2 diabetes | | | | [facility] 2 | [address] | mellitus without | | | | [place], [place] | | complication, with | | | | [address] | | long-term current | | | | [phone] | | use of insulin | | | | | | ([facility]); S/P gastric | | | [...] Patient referred [place]: [place] [address] Documented time of visit: 1:30 to 2:00 (30 minutes vnqb-lu-hduf with patient) Surgery: Gastric Bypass Date of [...] vagina Allergic rhinitis Anemia Anxiety Bipolar disorder ([facility]) Chronic wound infection of abdomen from 2010 Cough Depression Diverticulitis of colon Dizziness Glaucoma Heart burn Hemorrhoids Hernia of abdominal wall Incisional hernia, incarcerated 2012 Insomnia Irregular periods Kidney stone Leaking of urine Leg sore Lymphedema Morbid obesity with body mass index of 70 and over in adult ([facility]) Myalgia and myositis Nausea Neck pain Numbness Osteoarthritis of knee Palpitations Pneumonia Shortness of breath Staphylococcal infection Stroke ([facility]) TIA (transient ischemic attack) due [...] multivitamin & mineral (with iron) supplement, 2/day -4676-7160 mg calcium citrate with vitamin D/day (take [...] in [address],[place] Pager# [phone] Phone: [phone] documented in this en counter Plan of Treatment +--------+---------+ + + + | Date | Type | Specialty | Care Team | Description | +--------+---------+ + + + | 03/15/ | Office | Cardiology | Randell Franks, | | | 2019 | Visit | | [address] | | | | | | [place], [place] | | | | | | [address] | | | | | | [phone] | | | | | | | [...] of insulin ([facility]) | | | | | [...]
--- OUTSIDE RECORDS SUMMARY | ~2019-12-02 | XMS | Encounter Summary ---
Demographics + + + | Address | [address] | | | [place] [address] | + + + | Home Phone [...] [place], [place] | | | | | [address] | | + + + + + | Ellie Vang | ECON | Unknown | | + + + + + Care Team Providers + +------+ + | Care Web Interface Developer Name | Role | Phone | [...] | | | [address] | [place], [place] | | | | | Mailcode: [place] | [address] | | | | | [facility] Health and | | | | | | [facility] 2 | | | | | | [place], [place] | | | | | | [address] | | | | | | | [...] [address] | | | | | | [place] | | | | | | [address] | | | | | | [phone] | | | | | | | | +--------+---------+ + + + documented as of this encounter Visit Diagnoses Not on filedocumented in this encounter"
--- OUTSIDE RECORDS SUMMARY | ~2019-12-02 | XMS | Encounter Summary ---
Demographics + + + | Address | [address] | | | [place] [address] | + + + | Home Phone [...] [place], [place] | | | | | [address] | | + + + + + | Ellie Vang | ECON | Unknown | | + + + + + Care Team Providers + +------+ + | Care Staff Antisubmarine Officer Name | Role | Phone | [...] | | | | | | | [place] for | | | | | | | Health and | | | | | | | Healing, | | | | | | | Building 2 | | | | | | | [place], [place] | | | | | | | [address] | | | | | | | Phone: | | | | | | | [phone] | | | | | | | Fax: | | | | | | | [phone] | +--------+--------+ + + + + Encounter Details +--------+---------+ + + + | Date | Type | Department | Care Team | Description | +--------+---------+ + + + | 06/16/ | Office | Digestive Health | Olga Lidia Montanez, | Morbid obesity (HCC) | | 2012 | Visit | Center at [facility] [address] [facility] | (Primary Dx); Type | | | | [facility] | [facility] [address] | 2 diabetes mellitus | | | | [facility] and | [place], [place] | (HCC) | | | | [place] [address] | [address] | | | | | [place], [place] | | | | | | [address] | | | | | | [phone] | | | +--------+---------+ + + + [...] of Visit: 10:06 to 10:32 (26 minutes gpqk-qg-dlnd with patient & friend) SUBJECTIVE: Is surprised she has gained weight; is disappointed. Still following her usual meal plan. H as d/c'd diet soda. Still struggling w/ eating out of boredom - choosing 100 kcal snacks but having ~3 of them at a time. Not as much emotional eating lately. Has been keeping food log s (on paper) - avg 6016-4718 kcal/d. Trying to increase activity. B: Atkins [...] provided. Olga Lidia Montanez RD, [place] Pager [phone] documented in this en counter Plan of Treatment +--------+---------+ + + + | Date | Type | Specialty | Care Team | Description | +--------+---------+ + + + | 03/15/ | Office | Cardiology | Randell Franks, | | | 2019 | Visit | | [address] | | | | | | [place], [place] | | | | | | [address] | | | | | | [phone] | | | | | | | | +--------+---------+ + + + documented as of this encounter Procedures + +--------+ + + + | Procedure Name | Priori | Date/Time | Associated Diagnosis | Comments | | | ty | | | | + +--------+ + + + | AR MNT RE-ASSESSMNT | Routin | 06/16/2013 | [...]
--- OUTSIDE RECORDS SUMMARY | ~2019-12-02 | XMS | Encounter Summary ---
Demographics + + + | Address | [address] | | | [place] [address] | + + + | Home Phone [...] + | Katalina Padilla | ECON | [address] | | | | | [place], [place] | | | | | [address] | | + + + + + | Ellie Vang | ECON | Unknown | | + + + + + Care Team Providers + +------+ + | Care Fruit Thinner Machine Operator Name | Role | Phone [...] (PHENTERMINE 37.5 mg | | | | [place] at | [place], [place] | ); Refill Request | | | | [place] [address] [address] | [address] | | | | | [facility] | [phone] | | | | | [facility] | | | | | | [place], [place] | | | | | | [address] | | | | | | [phone] | | | +--------+ + + + [...] [address] | | | | | | [place], [place] | | | | | | [address] | | | | | | [phone] | | | | | | | | +--------+---------+ + + + documented as of this encounter Visit Diagnoses Not on filedocumented in this encounter"
--- OUTSIDE RECORDS SUMMARY | ~2019-12-02 | XMS | Encounter Summary ---
Demographics + + + | Address | [address] | | | [place] [address] | + + + | Home Phone [...] + | Katalina Padilla | ECON | [address] | | | | | [place], [place] | | | | | [address] | | + + + + + | Ellie Vang | ECON | Unknown | | + + + + + Care Team Providers + +------+ + | Care Animal Care Attendant Name | Role | Phone | [...] | 2012 | | Center at [facility] 0990 | ACNP [address] | | | | | [address] | Ave [place], [place] | | | | | Mailcode: [place] | [address] | | | | | for Health and | | | | | | [facility] 2 | | | | | | [facility] [place] | | | | | | [address] | | | | | | | [...] Flannery | | | | | | [place], [place] | | | | | | [address] | | | | | | [phone] | | | | | | | | +--------+---------+ + + + documented as of this encounter Visit Diagnoses Not on filedocumented in this encounter"
--- OUTSIDE RECORDS SUMMARY | ~2019-12-02 | XMS | Encounter Summary ---
Demographics + + + | Address | [address] | | | [place] [address] | + + + | Home Phone [...] [place], [place] | | | | | [address] | | + + + + + | Ellie Vang | ECON | Unknown | | + + + + + Care Team Providers + +------+ + | Care Loss Prevention Analyst Name | Role | Phone | [...] floor | | | | | | [place], [place] | | | | | | [address] | | | | | | [phone] | | | +--------+------+ + + + [...] [place] | | | | | | [address] | | | | | | [phone] | | | | | | | [...] | + + + + + | [facility] | [address] | [place] [address] | | | SERVICES, CORE | PARK [...] [facility] | [address] | [place] [address] | | | LYDIA RANGEL | PARK [...] [facility] | [address] | [place] [address] | | | SERVICES, SPECIAL | PARK [...]
--- OUTSIDE RECORDS SUMMARY | ~2019-12-02 | XMS | Encounter Summary ---
Demographics + + + | Address | [address] | | | [place] [address] | + + + | Home Phone [...] | Organization | [facility] | | | and Jeffana [...] Providers + +------+ + | Care Library Media Specialist Name | Role | Phone | + +------+ + PCP | Unavailable | + +------+ + Encounter Details +--------+ + + + + | Date | Type | Department | Care Team | Description | +--------+ + + + + | 08/31/ | Hospital | [facility] | Erich Wells | | | 2004 | Encounter | MED CTR SLEEP | MD Michael [address] | | | | | CENTER [address] [place] | | | | | [place], [place] | [place] [address] | | | | | [address] | [phone] | | | | | [phone] | | | +--------+ + + + [...] RICHEY | | | | | | [place] [address] | | | | | | [phone] | | | | | | | | +--------+---------+ + + + documented as of this encounter Visit Diagnoses Not on filedocumented in this encounter"
--- OUTSIDE RECORDS SUMMARY | ~2019-12-02 | XMS | Encounter Summary ---
Demographics + + + | Address | [address] | | | [place] [address] | + + + | Home Phone [...] [place], [place] | | | | | [address] | | + + + + + | Ellie Vang | ECON | Unknown | | + + + + + Care Team Providers + +------+ + | Care Buy Boat Operator Name | Role | Phone | + +------+ + | Fadi Goodrich DO | PCP | | + +------+ + Encounter Details +--------+---------+ + + + | Date | Type | Department | Care Team | Description | +--------+---------+ + + + | 01/11/ | Office | Digestive Health | | Morbid obesity (HCC) | | 2018 | Visit | Center at [facility] 2180 | | (Primary Dx) | | | | [address] | | | | | | Mailcode: [place] | | | | | | [facility] | | | | | | [facility] 2 | | | | | | [place], [place] | | | | | | [address] | | | | | | [phone] | | | +--------+---------+ + + + [...] of Class: 1055 until 1155 (60 minutes nzli-jd-cdri with patient) Teaching Methods: PowerPoint and verbal [...] a journal with fluid/protein d. Transportation 7. [place] [facility] Successful Weight Loss Surgery 8. Surgical [...] Flannery | | | | | | [place], [place] | | | | | | [address] | | | | | | [phone] | | | | | | | | +--------+---------+ + + + documented as of this encounter Visit Diagnoses + + | Diagnosis | + + | Morbid obesity (HCC) - Primary Morbid obesity | + + documented in this encounter"
--- OUTSIDE RECORDS SUMMARY | ~2019-12-02 | XMS | Encounter Summary ---
Demographics + + + | Address | [address] | | | [place] [address] | + + + | Home Phone [...] [place], [place] | | | | | [address] | | + + + + + | Ellie Vang | ECON | Unknown | | + + + + + Care Team Providers + +------+ + | Care Research And Development Chemist Name | Role | Phone | [...] | [facility] | | | with SALES SERVICE MANAGER | | hypertension | [address] | [address] | | | | | Right | [address] | [address] | | | | | heart | [place], [place] | Mailcode: | | | | | failure | [address] | Center [facility] | | | | | ([facility]) Type | Phone: | Health and | | | | | 2 diabetes | [phone] | Healing, | | | | | mellitus | Fax: | Building 2 | | | | | without | [phone] | [place], [place] | | | | | complication | | [address] | | | | | , with | | Phone: | | | | | long-term | | | | | | | current use | | Fax: | | | | | of insulin | | [phone] | | | | | ([facility] [...] 2018 | Visit | Center at [facility] [address] | [address] | BMI of 70 and over, | | | | [address] | [place], [place] | adult ([facility]) (Primary | | | | Mailcode: Center | [address] | Dx); Diabetes | | | | for Tellja and | [phone] | mellitus type 2 | | | | [facility], [address] | | without retinopathy | | | | [place], [place] | | ([facility]); | | | | [address] | | Intertriginous | | | | [phone] | | candidiasis; PCOS | | | [...] 10/30/2017 10:00 AM PDTPlease visit with our [facility] Plumbing Mechanic (RD) for instructions about your Bariatric diet, assistance with calorie c ounts, tips and tricks for working with your diet restrictions, and recipes after bariatric surgery. Daily yogurt; even just 1 tablespoon twice a day will provide enough probiotics to optimize digestion. Try to use a high-quality, probiotic-dense yogurt (eg Zaria's, Kobifield, Stacie lala Kefir, Electric Transfer Operator Duke's [place] Islander Yogurt). Remember to chew your food well, [...] to the healing stomach. There are also manager long term care complications of poor wound healing and gastric [...] Dr. Andie Brian Incisional hernia repair 03/01/2015 [facility]/ Dr. Cantu. Primary fascial closure [...] 1 tablet by mouth once daily CALCIUM CRB&CIU-X7-EZA81-GENIS ORAL Take 2 tablets by mouth two [...] History Narrative Updated 11/09/15 She lives in [place] with her mother and her sister (also her caregiver) lives in an artment/duplex below. She has 2 grandchildren (age 4 and 7) who live with her daughter and son-in-law Her boyfriend lives in [place] HFpEF, DM2, HTN, Sleep Apnea (unable to [...] here and refer her to our cardiac catheterization technologist who also has expertise in physical [...] a 4-5% rate of reoperation over the manager long term care (i.e. years), as well as other late [...] and may approach 5%. We reviewed the [facility] consent form. We discussed that we [...] Flannery | | | | | | [place], [place] | | | | | | [address] | | | | | | [phone] | | | | | | | [...] | | | |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 ([facility]) | | | [...] | | | | determined by [facility] | | | | | | Laboratories. See | | | | | | Compliance Statement B: | | | | | | iG[employer] - Dein Lernprogramm im Leben.Touchotel/CSPerformed | | | | | | by [employer],[address] | | | | | | Liliana Martinez [facility],[place] | | | | | | [address] | | | | | | [phone].iGrow - Dein Lernprogramm im Leben. | | | | | | comIsmael [...] [facility] | [address] | [place], [place] | | | UN[facility] | | [address] | | + + + + + [...] | | | LABORATORY | | | BRAZILIAN | | | SERVICES, | | | [...] + + + | [facility] | [address] | [place] [address] | | | SERVICES, LYDIA | CLARENCE [...] + + + + + | [facility] | [address] | [place] [address] | | | SERVICES, CORE | CLARENCE [...] + + + + + | [facility] | [address] | [place] [address] | | | SERVICES, CORE | PARK [...] [facility] | [address] | [place] [address] | | | SERVICES, CORE | PARK [...] [facility] | [address] | [place] [address] | | | SERVICES, LYDIA | CLARENCE [...] [facility] | [address] | [place] [address] | | | SERVICES, CORE | [address] | | | + + + + + documented in this encounter Visit Diagnoses + + | Diagnosis | + + | Morbid obesity with BMI of 70 and over, adult ([facility]) - Primary | + + | Diabetes mellitus type 2 without retinopathy ([facility]) Type II or unspecified type | [...]
--- OUTSIDE RECORDS SUMMARY | ~2019-12-02 | XMS | Encounter Summary ---
Demographics + + + | Address | [address] | | | [place] [address] | + + + | Home Phone [...] [place], [place] | | | | | [address] | | + + + + + | Ellie Vang | ECON | Unknown | | + + + + + Care Team Providers + +------+ + | Care Canine Deputy Name | Role | Phone | + [...] | | 2014 | | Center at [facility] 2329 | [facility] [address] | Review (Pre-surgery | | | | [address] | Ave [place], [place] | meal plan. To be | | | | Mailcode: [place] | [address] | provided to home | | | | for Health and | | health nurse. ) | | | | [facility], [address] | | | | | | [place], [place] | | | | | | [address] | | | | | | [phone] | | | +--------+ + + + [...] Flannery | | | | | | [place] | | | | | | [address] | | | | | | [phone] | | | | | | | | +--------+---------+ + + + documented as of this encounter Visit Diagnoses Not on filedocumented in this encounter"
--- OUTSIDE RECORDS SUMMARY | ~2019-12-02 | XMS | Encounter Summary ---
Demographics + + + | Address | [address] | | | [place] [address] | + + + | Home Phone [...] [place], [place] | | | | | [address] | | + + + + + | Ellie Vang | ECON | Unknown | | + + + + + Care Team Providers + +------+ + | Care Trousseau Consultant Name | Role | Phone | [...] HA Roldan | | | with MANAGER MARKETING SALES | | hypertension | [address] | [address] | | | | | Right | [address] | [place] | | | | | heart | [place], [place] | [place], | | | | | failure | [address] | [place] | | | | | ([facility]) Type | Phone: | [address] | | | | | 2 diabetes | [phone] | | | | | | mellitus | Fax: | | | | | | without | [phone] | | | | | | complication [...] | 2018 | Visit | Center at [facility] [address] | [address] [facility] | gastric bypass | | | | [facility] | [facility] [address] | (Primary Dx); | | | | for Xcerion and | [place], [place] | 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[place], [place]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) | | | | [address] | | | | | | [phone] | | | +--------+---------+ + + + [...] Follow-Up Patient referred by: Randell Franks MD [address] [place] [address] Documented time of visit: 2:36pm to 2:49 (13 minutes edoc-iq-jhaj with patient) Surgery: Gastric Bypass Date of [...] Medications since surgery: oral - appt with senior major gifts officer on the Testing blood glucose: 92 mg/dl [...] beef, cream of wheat, cream of mushroom, hungarian yogurt Fluid choices: water Supplementation: Flinstones, iron, [...] multivitamin & mineral (with iron) supplement, 2/day -6803-7730 mg calcium citrate with vitamin D/day (take in divided doses, not within 2 hour s of multivitamin or iron supplement) -500 mcg/day sublingual B12 supplement (or monthly injections) Continued to reinforce importance of mindful eating. Continue to increase physical activity. Follow up in 3 months or earlier as needed. Tejas Cevallos RD, LD Pager # [phone] signed by Tejas Cevallos RD at 05/27/2018 [...] | | | | | | [place], [place] | | | | | | [address] | | | | | | [phone] | | | | | | | | +--------+---------+ + + + documented as of this encounter Procedures + +--------+ + + + | Procedure Name | Priori | Date/Time | Associated Diagnosis | Comments | | | ty | | | | + +--------+ + + + | [place] MNT RE-ASSESSMNT | Routin | 05/27/2018 | [...]
--- OUTSIDE RECORDS SUMMARY | ~2019-12-02 | XMS | Encounter Summary ---
Demographics + + + | Address | [address] | | | [place] [address] | + + + | Home Phone [...] Organization | [facility] | | | and [...] Providers + +------+ + | Care Rn Lab Name | Role | Phone | [...] + + | 08/17/ | Refill | [facility] | Sulema Altamirano | Medication Refill | | 2019 | | CARDIOLOGY SAIMA | HILDA [address] | | | | | [address] | [address] | | | | | [address] | [place] [address] | | | | | [place] | [phone] | | | | | [address] | | | | | | [phone] | | | +--------+--------+ + + + [...] RICHEY | | | | | | [place] [address] | | | | | | [phone] | | | | | | | | +--------+---------+ + + + documented as of this encounter Visit Diagnoses Not on filedocumented in this encounter"
--- OUTSIDE RECORDS SUMMARY | ~2019-12-02 | XMS | Encounter Summary ---
Demographics + + + | Address | [address] | | | [place] [address] | + + + | Home Phone [...] | Organization | [facility] | | [...] Team Providers + +------+ + | Care Supplier Manager Name | Role | Phone | + +------+ + PCP | Unavailable | + +------+ + Encounter Details +--------+ + + + + | Date | Type | Department | Care Team | Description | +--------+ + + + + | 10/20/ | Orders Only | [facility] | Dharmesh Escobar, | | | 2016 | | NEPHROLOGY [place] | MATERIALS SPECIALIST [address] | | | | [address] | [address] | | | | | [address] [place], [place] | [place] | | | | | [address] | [address] | | | | | [phone] | [phone] | | | | | | | [...] F | | | | | | [place] [address] | | | | | | [phone] | | | | | | | [...]
--- OUTSIDE RECORDS SUMMARY | ~2019-12-02 | XMS | Encounter Summary ---
Demographics + + + | Address | [address] | | | [place] [address] | + + + | Home Phone [...] [place], [place] | | | | | [address] | | + + + + + | Ellie Vang | ECON | Unknown | | + + + + + Care Team Providers + +------+ + | Care Watch Caser Name | Role | Phone | + [...] + | 03/03/ | Documentati | [facility] | Lab, Gi Procedure | Medical Records | | 2019 | on | [address] | | Review | | | | [address] Mailcode: | | | | | | [facility] | | | | | | Health and Healing, | | | | | | Building 2 | | | | | | [place], [place] | | | | | | [address] | | | | | | [phone] | | | +--------+ + + + [...] [place] | | | | | | [address] | | | | | | [phone] | | | | | | | | +--------+---------+ + + + documented as of this encounter Visit Diagnoses Not on filedocumented in this encounter"
--- OUTSIDE RECORDS SUMMARY | ~2019-12-02 | XMS | Encounter Summary ---
Demographics + + + | Address | [address] | | | [place] [address] | + + + | Home Phone [...] Providers + +------+ + | Care Nutrition Representative Name | Role | Phone | [...] | | [address] | Ave [place], [place] | | | | | Mailcode: [place] | [address] | | | | | for Health and | [phone] | | | | | [facility] 2 | | | | | | [facility] [place] | | | | | | [address] | | | | | | | [...] | | 2019 | Visit | | [address] | | | | | | [place], [place] | | | | | | [address] | | | | | | [phone] | | | | | | | | +--------+---------+ + + + documented as of this encounter Visit Diagnoses Not on filedocumented in this encounter"
--- OUTSIDE RECORDS SUMMARY | ~2019-12-02 | XMS | Encounter Summary ---
Demographics + + + | Address | [address] | | | [place] [address] | + + + | Home Phone [...] [place], [place] | | | | | [address] | | + + + + + | Ellie Vang | ECON | Unknown | | + + + + + Care Team Providers + +------+ + | Care Immunologist Name | Role | Phone | + [...] | | | | | | | [address] | | | | | | | [address] | | | | | | | Physicians | | | | | | | Pavilion, 2nd | | | | | | | Floor | | | | | | | [place], [place] | | | | | | | [address] | | | | | | | Phone: | | | | | | | [phone] | | | | | | | Fax: | | | | | | | [phone] | +--------+--------+ + + + + Encounter [...] | | | [facility] [address] | [facility] | or gangrene (Primary | | | | [address] | [place], [place] | Dx) | | | | Physicians [place], | [address] | | | | | 2nd Floor | [phone] | | | | | [facility] [place] | | | | | | [address] | | | | | | [phone] | | | +--------+---------+ + + + [...] Rocha MD,MPH - 11/05/2015 2:09 PM PDT [facility] Department of Surgery EGS/TRAUMA Surgery [...] 500 mg by mouth once daily. CALCIUM CRB&FJN-A0-QNT26-GENIS ORAL Take 1 tablet by mouth two [...] were answered. Christian Rocha MD MPH FACS [facility] kettle room helper Trauma, Critical Care & Acute Care Surgery [facility] [phone] documented in thi s encounter Plan of Treatment +--------+---------+ + + + | Date | Type | Specialty | Care Team | Description | +--------+---------+ + + + | 03/15/ | Office | Cardiology | Randell Franks, | | | 2019 | Visit | | [address] | | | | | | [place], [place] | | | | | | [address] | | | | | | [phone] | | | | | | | | +--------+---------+ + + + documented as of this encounter Visit Diagnoses + + | Diagnosis | + + | Ventral hernia without obstruction or gangrene - Primary Ventral hernia, unspecified, | | without mention of obstruction or gangrene | + + documented in this encounter"
--- OUTSIDE RECORDS SUMMARY | ~2019-12-02 | XMS | Encounter Summary ---
Demographics + + + | Address | [address] | | | [place] [address] | + + + | Home Phone [...] [place], [place] | | | | | [address] | | + + + + + | Ellie Vang | ECON | Unknown | | + + + + + Care Team Providers + +------+ + | Care Keyseating Machine Set Up Operator Name | Role | [...] Mailcode:[id number] | | | | | | [facility] | | | | | | [place], [place] | | | | | | [address] | | | | | | [phone] | | | +--------+ + + + [...] | | | | | | [place], [place] | | | | | | [address] | | | | | | [phone] | | | | | | | [...] | | Results for this | | CHICHI/ALEENA/TATO/INFU | e | 6:45 AM | | [...] | | | | | CONTRAST | USHA-SUSHILA CHRISTIANSEN, | | | | | | M.DRenee-Radiologist 2: | | | | | | [...] | | + +---------+ + + | [facility] DEPARTMENT OF | | | | | [...] | | + +---------+ + + | [facility] DEPARTMENT OF | | | | | [...] filming | | | | | | /, 08/01. OPERATION #2: | | | | [...] | | | | navigated a #5.5 Cypriot | | | | | | Ozzy [...] | | | + +---------+ + + ANG/JAMEY CADET/ALEENA/TATO/USHA (05/14/1993 7:31 PM PDT) + + [...] + | Performing | Address | City/State[facility] | Phone Number | | Organization | | | | + +---------+ + + | [facility] DEPARTMENT OF | | | | | [...] | | + +---------+ + + | [facility]MENT [facility] | | | | | [...] | | + +---------+ + + | [facility] DEPARTMENT OF | | | | | [...] | | | | | | a#5.5 Cypriot sheath was | | | | | | secured into place. In | | | | | | a similar fashion, | | | | | | a#7.0 Cypriot sheath was | | | | | [...] | | | | | The #7 Cypriot Brite | | | | | | [...] | | + +---------+ + + | [facility] DEPARTMENT OF | | | | | [...] Dr. | | | | | | LeonSperoff. CLINICAL | | | | | | [...] | | + +---------+ + + | [facility] DEPARTMENT OF | | | | | RADIOLOGY | | | | + +---------+ + + documented in this encounter Visit Diagnoses Not on filedocumented in this encounter
--- OUTSIDE RECORDS SUMMARY | ~2019-12-02 | XMS | Encounter Summary ---
Demographics + + + | Address | [address] | | | [place] [address] | + + + | Home Phone [...] | Organization | [facility] | | | and [...] Providers + +------+ + | Care Director Vaccine Name | Role | Phone | + [...] | | | | | previous | [place], | [address] [place] | | | | | audiogram | [place] [address] | [place], [place] | | | | | Procedures | Phone: | [address] Phone: | | | | | OFFICE VISIT | [phone] | [phone] | | | | | REGULAR | Fax: | Fax: | | | | | | [phone] | [phone] | +--------+--------+ + + + + Encounter [...] | | [address] | [place] [address] | Pressure sensation | | | | [address] [address] [place] | [phone] | in both ears | | | | [place] [address] | | | | | | [phone] | | | +--------+---------+ + + + [...] RICHEY | | | | | | [place] [address] | | | | | | [phone] | | | | | | | [...]
--- OUTSIDE RECORDS SUMMARY | ~2019-12-02 | XMS | Encounter Summary ---
Demographics + + + | Address | [address] | | | [place] [address] | + + + | Home Phone [...] | | | | | | [facility] | | | | | | Health and Healing, | | | | | | [facility] 2 | | | | | | [place], [place] | | | | | | [address] | | | | | | [phone] | | | +--------+ + + + [...] | | 2019 | Visit | | [address] | | | | | | [place], [place] | | | | | | [address] | | | | | | [phone] | | | | | | | | +--------+---------+ + + + documented as of this encounter Visit Diagnoses Not on filedocumented in this encounter"
--- OUTSIDE RECORDS SUMMARY | ~2019-12-02 | XMS | Encounter Summary ---
Demographics + + + | Address | [address] | | | [place] [address] | + + + | Home Phone [...] [place], [place] | | | | | [address] | | + + + + + | Ellie Vang | ECON | Unknown | | + + + + + Care Team Providers + +------+ + | Care Sales Performance Analyst Name | Role | Phone | + +------+ + | Fadi Goodrich DO | PCP | | + +------+ + Encounter Details +--------+ + + + + | Date | Type | Department | Care Team | Description | +--------+ + + + + | 12/12/ | Emergency | [facility] Emergency | | | | 2014 - | | Department [address] | | | | | | [address] | | | | 05/20/ | | [facility] | | | | 2014 | | [place], [place] | | | | | | [address] | | | | | | [phone] | | | +--------+ + + + [...] [address] | | | | | | [place], [place] | | | | | | [address] | | | | | | [phone] | | | | | | | | +--------+---------+ + + + documented as of this encounter Visit Diagnoses Not on filedocumented in this encounter"
--- OUTSIDE RECORDS SUMMARY | ~2019-12-02 | XMS | Clinical Summary ---
Demographics + + + | Address | [address] | | | [place] [address] | + + + | Home Phone [...] Author + + + | Author | [facility] | + + + | Organization | [facility] | + [...] [place], [place] | | | | | [address] | | + + + + + | Ellie Vang | ECON | Unknown | | + + + + + Care Team Providers + +------+ + | Care Sofa Cover Inspector Name | Role | Phone | + +------+ + | Kenyatta Cardenas MD | PCP | | + +------+ + Source Comments [facility] is fully live on both [facility] and [facility] InPatient.[facility] Allergies + + + + [...] 0 | | | Activ | | CRB&VQO-J1-[id number]-GEN | mouth two times | | | [...] | + + + +---+------+---+-------+ | thyroid (DEPUTY PROSECUTING ATTORNEY | Take 30 mg by mouth | [...] | | 2019 | | | MD oJrje | Review | +--------+ + + + [...] [place] | | | | | | | | | | | | [address] | | | | | | [phone] | | | | | | | [...] - | | | | | | /[id number] | | [id number]: Qty: 1 on | | | | | | 525 | | 03/01/2018 by Ion Pandey | | | | | | | | MD Vinic[facility] at [facility] | | | [...] - | | | | | | /[id number] | | [id number]: Qty: 1 on | | | | | | 173 | | 03/01/2018 by Ion Pandey | | | | | | | | MD Vinicius at [facility] | | | | | | | | LOC | | | | | | | + +------+------+ +--------+--------+--------+ Procedures + +--------+ + + + | Procedure Name | Priori | Date/Time | Associated Diagnosis | Comments | | | ty | | | | + +--------+ + + + | LA COLLECTION VENOUS | Routin | 09/15/2019 | [...] [facility] | [address] | [place] [address] | | | LYDIA RANGEL | CLARENCE [...] + | [facility] | [address] | [place] [address] | | | SERVICES, LYDIA | CLARENCE [...] | [facility] | | considered for monitoring lobsterman glycemic control in patients with: | LABORATORY [...] [facility] | [address] | [place] [address] | | | SERVICES, SPECIAL | PARK [...] | | | + +--------+ +--------+-------+---------+--------+ | MEDICAL CARE ADMINISTRATOR MEDICAID | MEDICAL CARE ADMINISTRATOR | xxxxxxxx | | | | Medica [...] mireya | | | 3 (Home) | [address] | + +--------+ +--------+ + + Advance [...]
--- OUTSIDE RECORDS SUMMARY | ~2019-12-02 | XMS | Encounter Summary ---
Demographics + + + | Address | [address] | | | [place] [address] | + + + | Home Phone [...] [place], [place] | | | | | [address] | | + + + + + | Ellie Vang | ECON | Unknown | | + + + + + Care Team Providers + +------+ + | Care Writer Name | Role | Phone | + +------+ + | Fadi Goodrich DO | PCP | | + +------+ + Encounter Details +--------+ + + + + | Date | Type | Department | Care Team | Description | +--------+ + + + + | 10/27/ | Abstract | Digestive Health | Clinic, Surgery | | | 2018 | | [place] [facility] [address] | | | | | | [address] | | | | | | Mailcode: [place] | | | | | | [facility] and | | | | | | [facility] 2 | | | | | | [place], [place] | | | | | | [address] | | | | | | [phone] | | | +--------+ + + + [...] | | | | | | [place], [place] | | | | | | [address] | | | | | | [phone] | | | | | | | | +--------+---------+ + + + documented as of this encounter Visit Diagnoses Not on filedocumented in this encounter"
--- OUTSIDE RECORDS SUMMARY | ~2019-12-02 | XMS | Encounter Summary ---
Demographics + + + | Address | [address] | | | [place] [address] | + + + | Home Phone [...] + | Katalina Padilla | ECON | [address] | | | | | [place], [place] | | | | | [address] | | + + + + + | Ellie Vang | ECON | Unknown | | + + + + + Care Team Providers + +------+ + | Care Placement Coordinator Name | Role | Phone | [...] | | 2017 | | Preventive at [facility] | [address] | Request (Ericxiga 5 | | | | [address] | [facility] [place] | mg) | | | | Mailcode: [facility] | [address] | | | | | [facility] | [phone] | | | | | and [address] | | | | | | [address] | | | | | | [place], [place] | | | | | | [address] | | | | | | [phone] | | | +--------+ + + + [...] | | | | | | [place], [place] | | | | | | [address] | | | | | | [phone] | | | | | | | | +--------+---------+ + + + documented as of this encounter Visit Diagnoses Not on filedocumented in this encounter"
--- OUTSIDE RECORDS SUMMARY | ~2019-12-02 | XMS | Encounter Summary ---
Demographics + + + | Address | [address] | | | [place] [address] | + + + | Home Phone [...] [place], [place] | | | | | [address] | | + + + + + | Ellie Vang | ECON | Unknown | | + + + + + Care Team Providers + +------+ + | Care Front Of House Manager Name | Role | Phone | + +------+ + | Fadi Goodrich DO | PCP | | + +------+ + Encounter Details +--------+ + + + + | Date | Type | Department | Care Team | Description | +--------+ + + + + | 12/05/ | Abstract | Cardiology | Randell Franks, | | | 2016 | | Preventive at [facility] | MD [address] | | | | | [address] | [facility] [place] | | | | | Mailcode: CH9A | [address] | | | | | [facility] | [phone] | | | | | and Healing, | | | | | | [address] | | | | | | [facility] [place] | | | | | | [address] | | | | | | [phone] | | | +--------+ + + + [...] | | 2019 | Visit | | [address] | | | | | | [place], [place] | | | | | | [address] | | | | | | [phone] | | | | | | | | +--------+---------+ + + + documented as of this encounter Visit Diagnoses Not on filedocumented in this encounter"
--- OUTSIDE RECORDS SUMMARY | ~2019-12-02 | XMS | Encounter Summary ---
Demographics + + + | Address | [address] | | | [place] [address] | + + + | Home Phone [...] [place], [place] | | | | | [address] | | + + + + + | Ellie Vang | ECON | Unknown | | + + + + + Care Team Providers + +------+ + | Care Research Methods Instructor Name | Role | Phone | [...] check | | 2020 | Visit | [place] [facility] [address] | MD [address] | (Primary Dx) | | | | [address] | [facility] | | | | | Mailcode: Center | [place], [place] | | | | | [facility] and | [address] | | | | | [place] [address] | [phone] | | | | | [place], [place] | | | | | | [address] | | | | | | [phone] | | | +--------+---------+ + + + [...] recommend you go to the ED in [place] for workup of pulmonary embolism. I will [...] Recommended patient present to the ED in [place] for workup of pulmonary embolism Will call [...] ed by Kyrie Warren. JONES WOO MD [facility] [address] Mailcode: [place] [address] documented in this encounter Plan of Treatment +--------+---------+ + + + | Date | Type | Specialty | Care Team | Description | +--------+---------+ + + + | 03/15/ | Office | Cardiology | Randell Franks, | | | 2019 | Visit | | [address] | | | | | | [place], [place] | | | | | | [address] | | | | | | [phone] | | | | | | | | +--------+---------+ + + + documented as of this encounter Visit Diagnoses + + | Diagnosis | + + | Postop check - Primary Follow-up examination, following unspecified surgery | + + documented in this encounter
--- OUTSIDE RECORDS SUMMARY | ~2019-12-02 | XMS | Encounter Summary ---
Demographics + + + | Address | [address] | | | [place] [address] | + + + | Home Phone [...] [place], [place] | | | | | [address] | | + + + + + | Ellie Vang | ECON | Unknown | | + + + + + Care Team Providers + +------+ + | Care Fitness And Wellness Instructor Name | Role | Phone | [...] | Tiny, | | | | | [place] EST | Fadi Person DO | MD Randell | | | | | PATIENT | [address] | [address] | | | | | [address] | Ave | | | | | | [place], | [place], [place] | | | | | | [place] [address] | [address] | | | | | | Phone: | Phone: | | | | | | [phone] | [phone] | | | | | | Fax: | Fax: | | | | | | [phone] | [phone] | +--------+--------+ + + + + Encounter Details +--------+---------+ + + + | Date | Type | Department | Care Team | Description | +--------+---------+ + + + | 04/03/ | Office | Cardiology | Randell Franks, | Morbid obesity (HCC) | | 2014 | Visit | Preventive at [facility] | [address] | (Primary Dx); Type | | | | [address] | [place], [place] | 2 diabetes mellitus | | | | Mailcode: CH9A | [address] | without complication | | | | [facility] | [phone] | ([facility]) | | | | and [address], | | | | | | [address] | | | | | | [place], [place] | | | | | | [address] | | | | | | [phone] | | | +--------+---------+ + + + [...] 500 mg by mouth once daily. CALCIUM CRB&DNK-M2-VQL49-GENIS ORAL Take 1 tablet by mouth two [...] documented, but if we use her last [facility] weight of 410 lbs, this would put her at 360 lbs before consideration for RYGBP. She is working with the bariatric surgery field training manager to try to achieve this. She states [...] visit Diet: healthy, working with Bar Surg field training manager Exercise: "I walk everywhere." ROS: No CP, [...] [address] | | | | | | [place], [place] | | | | | | [address] | | | | | | [phone] | | | | | | | | +--------+---------+ + + + documented as of this encounter Visit Diagnoses + + | Diagnosis | + + | Morbid obesity (HCC) - Primary Morbid obesity | + + | Type 2 diabetes mellitus without complication (HCC) | + + documented in this encounter
--- OUTSIDE RECORDS SUMMARY | ~2019-12-02 | XMS | Encounter Summary ---
Demographics + + + | Address | [address] | | | [place] [address] | + + + | Home Phone [...] [place], [place] | | | | | [address] | | + + + + + | Ellie Vang | ECON | Unknown | | + + + + + Care Team Providers + +------+ + | Care Circulation Librarian Name | Role | Phone | [...] Center at [facility] [address] | MD [address] | | | | | [address] | [facility] | | | | | Mailcode: [place] | [place], [place] | | | | | Health and | [address] | | | | | [facility], [facility] 2 | [phone] | | | | | [place], [place] | | | | | | [address] | | | | | | [phone] | | | +--------+ + + + [...] [address] | | | | | | [place], [place] | | | | | | [address] | | | | | | [phone] | | | | | | | | +--------+---------+ + + + documented as of this encounter Visit Diagnoses Not on filedocumented in this encounter"
--- OUTSIDE RECORDS SUMMARY | ~2019-12-02 | XMS | Encounter Summary ---
Demographics + + + | Address | [address] | | | [place] [address] | + + + | Home Phone [...] [place], [place] | | | | | [address] | | + + + + + | Ellie Vang | ECON | Unknown | | + + + + + Care Team Providers + +------+ + | Care Clinical Reviewer Name | Role | Phone | + +------+ + | Fadi Goodrich DO | PCP | | + +------+ + Encounter Details +--------+ + + + + | Date | Type | Department | Care Team | Description | +--------+ + + + + | 08/22/ | Abstract | Cardiology | Randell Franks, | | | 2013 | | Preventive at [facility] | MD [address] | | | | | [address] | [place], [place] | | | | | Mailcode: CH9A | [address] | | | | | [facility] | [phone] | | | | | and Healing, | | | | | | [address] | | | | | | [facility] [place] | | | | | | [address] | | | | | | [phone] | | | +--------+ + + + [...] | | | | | | [place], [place] | | | | | | [address] | | | | | | [phone] | | | | | | | | +--------+---------+ + + + documented as of this encounter Visit Diagnoses Not on filedocumented in this encounter"
--- OUTSIDE RECORDS SUMMARY | ~2019-12-02 | XMS | Encounter Summary ---
Demographics + + + | Address | [address] | | | [place] [address] | + + + | Home Phone [...] + | Katalina Padilla | ECON | [address] | | | | | [place], [place] | | | | | [address] | | + + + + + | Ellie Vang | ECON | Unknown | | + + + + + Care Team Providers + +------+ + | Care Grinding Room Supervisor Name | Role | Phone | + +------+ + | Fadi Goodrich DO | PCP | | + +------+ + Encounter Details +--------+ + + + + | Date | Type | Department | Care Team | Description | +--------+ + + + + | 03/04/ | Telephone | Digestive Health | Ion Pandey, | | | 2018 | | [place] [facility] | MD [address] | | | | | [address] | [place], [place] | | | | | Mailcode: [place] | [address] | | | | | for Health and | | | | | | [facility] 2 | | | | | | [place], [place] | | | | | | [address] | | | | | | | [...] [address] | | | | | | [place], [place] | | | | | | [address] | | | | | | [phone] | | | | | | | | +--------+---------+ + + + documented as of this encounter Visit Diagnoses Not on filedocumented in this encounter"
--- OUTSIDE RECORDS SUMMARY | ~2019-12-02 | XMS | Encounter Summary ---
Demographics + + + | Address | [address] | | | [place] [address] | + + + | Home Phone [...] [place], [place] | | | | | [address] | | + + + + + | Ellie Vang | ECON | Unknown | | + + + + + Care Team Providers + +------+ + | Care Paratransit Operator Name | Role | Phone | [...] | BROCK Roldan | | | with VOLUNTEER SERVICES DIRECTOR | | hypertension | [address] | [address] | | | | | Right | [address] | [place] | | | | | heart | [place], [place] | [place], | | | | | failure | [address] | [place] | | | | | ([facility]) Type | Phone: | [address] | | | | | 2 diabetes | [phone] | | | | | | mellitus | Fax: | | | | | | without | [phone] | | | | | | complication | | | | | | | , with | | | | | | | long-term | | | | | | | current use | | | | | | | of insulin | | | | | | | ([facility]) | | | +--------+ + + + + + Encounter Details +--------+---------+ + + + | Date | Type | Department | Care Team | Description | +--------+---------+ + + + | 04/01/ | Office | Digestive Health | Dione Andre, | History of Frandy-en-Y | | 2018 | Visit | Center at [facility] [address] | [address] [facility] | gastric bypass | | | | [facility] | [facility] [facility] [address] | (Primary Dx); | | | | for [email or web address] and | [place], [place] | 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[facility] 2 | [address] | with insulin therapy | | | | [place], [place] | | ([facility]) | | | | [address] | | | | | | [phone] | | | +--------+---------+ + + + [...] Follow-Up Patient referred by: Randell Franks MD [address] [place] [address] Documented time of visit: 10:33 to 10:55 (22 minutes upxp-to-ifyy with patient) Surgery: Gastric Bypass Date of [...] Anemia Anxiety Bipolar disorder ([facility]) Chronic wound infection of abdomen from [...] tomato), cream of wheat occ, cottage cheese, japanese yogurt-light and fit, protein bar from [employer]. Unable to keep protei n shakes down. Fluid choices: water-4-5 bottles per day Supplementation: Flinstones, iron, vitamin D, vitamin C, Citracal supplement x 2 in the mor eusebio and 2 at night, magnesium, potassium, T02-ddcsvdhj today Assessment: Vomiting likely due to volume [...] multivitamin & mineral (with iron) supplement, 2/day -9306-9171 mg calcium citrate with vitamin D/day (take in divided doses, not within 2 hour s of multivitamin or iron supplement) -500 mcg/day sublingual B12 supplement (or monthly injections) Continued to reinforce importance of mindful eating. Continue to increase physical activity. Follow up in [address],[place] Pager# [phone] Phone: [phone] documented in this en counter Plan of Treatment +--------+---------+ + + + | Date | Type | Specialty | Care Team | Description | +--------+---------+ + + + | 03/15/ | Office | Cardiology | Randell Franks, | | | 2019 | Visit | | [address] | | | | | | [place], [place] | | | | | | [address] | | | | | | [phone] | | | | | | | | +--------+---------+ + + + documented as of this encounter Procedures + +--------+ + + + | Procedure Name | Priori | Date/Time | Associated Diagnosis | Comments | | | ty | | | | + +--------+ + + + | NM MNT RE-ASSESSMNT | Routin | 04/01/2018 | History of | | | X15MIN | e | 12:23 PM | Frandy-en-Y gastric | | | | | PDT | bypass Diabetes | | | | | | mellitus with | | | | | | insulin therapy | | | | | | ([facility]) | | + +--------+ + + + documented in this encounter Visit Diagnoses + + | Diagnosis | + + | History of Frandy-en-Y gastric bypass - Primary Bariatric surgery status | + + | Diabetes mellitus with insulin therapy (HCC) | + + documented in this encounter
--- OUTSIDE RECORDS SUMMARY | ~2019-12-02 | XMS | Encounter Summary ---
Demographics + + + | Address | [address] | | | [place] [address] | + + + | Home Phone [...] [place], [place] | | | | | [address] | | + + + + + | Ellie Vang | ECON | Unknown | | + + + + + Care Team Providers + +------+ + | Care Gas Station Operator Name | Role | Phone | [...] | obstruction | [address] | [address] [place], | | | | | or gangrene | Rd | [place] | | | | | | [place] | [address] | | | | | Incarcerated | [address] | Phone: | | | | | ventral | Phone: | [phone] | | | | | hernia | [phone] | Fax: | | | | | Procedures | Fax: | [phone] | | | | | REQUEST TO | [phone] | | | | | | SURGERY | | | | | | | MOTION PICTURE PHOTOGRAPHER | | | | | | | ND REPAIR | | | | | | | INCISIONAL | | | | | | | HERNIA,STRAN | | | | | | | G ND REPAIR | | | | | | | INCIS | | | | | | | HERNIA W | | | | | | | MESH ND | | | | | | | MUSCLE-SKIN | | | | | | | FLAP,TRUNK | | | | | | | ND | | | | | | | MUSCLE-SKIN | | | | | | | FLAP,TRUNK | | | | | | | ND REPAIR | | | | | | | INCISIONAL | | | | | | | HERNIA,REDUC | | | | | | | IBLE ND | | | | | | | REPAIR INCIS | | | | | | | HERNIA W | | | | | | | MESH ND | | | | | | | REPAIR | | | | | | | RECURR INCIS | | | | | | | | | | | | | | HERNIA,STRAN | | | | | | | G ND REPAIR | | | | | | | INCIS | | | | | | | HERNIA W | | | | | | | MESH ND | | | | | | | REPAIR | | | | | | | RECURR INCIS | | | | | | | | | | | | | | HERNIA,REDUC | | | | | | | ND REPAIR | | | | | | [...] | | | | | obstruction | [place], | Mailcode: | | | | | or gangrene | [place] | [facility] | | | | | Abdominal | [address] | Health and | | | | | pain, | Phone: | Healing, | | | | | unspecified | [phone] | Building 2 | | | | | abdominal | Fax: | [place], [place] | | | | | location | [phone] | [address] | | | | | Procedures | | Phone: | | | | | CONSULT TO | | [phone] | | | | | SURGERY - | | Fax: | | | | | GENERAL | | [phone] | +--------+--------+ + + + + Encounter Details +--------+---------+ + + + | Date | Type | Department | Care Team | Description | +--------+---------+ + + + | 05/05/ | Office | Digestive Health | Chilo, | Ventral hernia | | 2019 | Visit | [facility] at [facility] [address] | MD Jones [address] | without obstruction | | | | [address] | [address] | or gangrene (Primary | | | | Mailcode: Center | [place], [place] | Dx) | | | | for Health and | [address] | | | | | Healing, Building 2 | [phone] | | | | | [place], [place] | | | | | | [address] | | | | | | [phone] | | | +--------+---------+ + + + [...] (1?2 cup) 6.5 Avocado 1?2 fruit 2.1 Alma sprouts, cooked 125 mL (1?2 cup) 2.0 Figs, dried 60 mL (1?4 cup) 1.9 Belva 1 medium 1.8 Sweet Potato, cooked, without [...] 1.3 Eggplant 125 mL (1?2 cup) 1.3 [place], with skin 1 medium 1.0-1.3 Peas, green, cooked 125 mL (1?2 cup) 0.8-1.3 Carrot, cooked [place] 125 mL (1?2 cup) 1?2 fruit 1.1-1.2 0.7-1.1 Grapefruit 1?2 fruit 0.7-1.1 Prunes, dried 3 1.1 [place], with skin 2 fruits 1.1 Apricots, dried [...] Bread, rye 35 g (1 slice) 0.6-1.0 Burleson bread crackers 3 crackers 0.9 Raisin bran [...] Soluble Fiber [email or web address] PATIENT SURGERY INFORMATION [facility] General Surgery Office Toll-free: ext [phone] Surgery Date: Monday, July 08, [address]: Main [facility] Procedure: recurrent ventral hernia repair Surgeon Name: Dr. Jones Tiwari DIRECTIONS FOR SURGERY TO PREPARE FOR SURGERY - If you are able, walk every day for at least 30 minutes. - Follow up: Phone pre-operative medicine clinic call to be completed within 30 days of emerson jerrica. This call appointment will be scheduled with you by a fine arts model. You will receive a ca ll within [...] ease call the General Surgery Office at [phone] for [id number]. Check-in on the day of surgery is at the Admitting Department located on the 9th floor of [facility]. DIET Nothing to eat or drink after [...] the surgery. Please see the list below, [facility] has a list of products [...] contact our office . Products Containing Aspirin Yuki-Hial[place], Anacin, Anexsia with Codeine, Andynos, Aspirin, Aspirin suppositories, Ascrip tin, Aspergum, Axotal, B-A-C, Baby Aspirin, Lucila, BC Powder, Bexophene, Buffaprin, Bufferin , Buffinol, Cama-Arthritis Strength, Congespirin, [place], Coricidin, Damason, Darvon, Dristan, Kalani-Gesic, Digel, Dolprin #3 Tablets, Donatab, Doxaphene, Duragesic, Easprin, Ecotrin, Emag rin Forte, Emiprin, Emprazil, Equagesic, Equazine M, Excedrin, Fiogesic, Fiorgen PH, Fiorice t, Fiorinal, 4-Way Cold Tablet, Gemnisyn, Indocin, Liquprin, Lortab ASA, Magnaprin, Marnal, Meprobamate, Midol, Momentum, Norgesic, [place], Orphengesic, Pabalate, P-A-C, Percodan, Pre salin, Robaxasil, Roxiprin, Saleto, Salocol, SK-65 Compound, Sine-Aid, Sine-Off, Salinas, Supac, Talwin Compound, Trigesic, Tolectin, Traiminicin, Vanquish, ZORprin, Zomax Products Containing Ibuprofen Advil, Aleve, Haltran, Medipren, Midol, Motrin, Naproxyn, Nuprin, Rufen Herbal Medications Ephedra: discontinue 24 hours before surgery Garlic: discontinue 7 days prior to surgery Ginkgo: discontinue 36 hours prior to surgery Ginseng: discontinue 7 days prior to surgery Kava: discontinue 24 hours prior to surgery [place] s Wort: discontinue 5 days prior to surgery Valerian: discontinue several weeks prior to surgery Other Products Which May Promote Bleeding Vitamin E, Gingko Biloba, Marine Fatty Acids, Damon-3 Fish Oil Supplement PRE-OP BATHING/SHOWER INSTRUCTIONS with [facility] [place] Bathe or shower the evening before and [...] loss of tissue. Check out the free [employer] Quit Line - The Quit Line is open 24 hours a day, seven days a we ek. The Quit Line is a telephone and web-based counseling service to help [place]ians quit us ing tobacco and nicotine products. 1.800.QUIT.NOW ( ) or www.quitnow.net/[place] PARKING Parking at the [facility] for patients and visitors is available in the [facility] tructure located across from the emergency department. Patient parking is available on level 1 and 3. Metered parking is available on the top level. Parking at [facility] is available in the building's parking structure. For additional parking options visit [email or web address]. TRANSPORTATION You will require transportation home on the day of discharge. Pain medications and physical activity restrictions may limit your ability to drive safely. CANCELLING YOUR PROCEDURE Please notify the general surgery office at [phone] as soon as possible should you nee [...] lost 100+ lbs! She last saw the [facility] team in 02/2019, at which [...] plans to see an ENT and a buffer chrome for her symptoms in the near future. [...] or less 8 [facility] Past Medical History: Diagnosis Date Abdominal pain Abnormal ThinPrep Pap test of vagina Allergic rhinitis Anemia Anxiety Bipolar disorder ([facility]) Chronic wound infection of abdomen from 2010 Cough Depression Diverticulitis of colon Dizziness Glaucoma Heart burn Hemorrhoids Hernia of abdominal wall Incisional hernia, incarcerated 2012 Insomnia Irregular periods Kidney stone Leaking of urine Leg sore Lymphedema Morbid obesity with body mass index of 70 and over in adult ([facility]) Myalgia and myositis Nausea Neck pain Numbness Osteoarthritis of knee Palpitations Pneumonia Shortness of breath Staphylococcal infection Stroke ([facility]) TIA (transient ischemic attack) due to [...] file Gets together: Not on file Attends shinto service: Not on file Active member of [...] daughter and son-in-law Her boyfriend lives in [place] HFpEF, DM2, HTN, Sleep Apnea (unable to [...] program here and refer her to our director of cardiac rehabilitation who also has expertise in physical activity [...] daily. BELBUCA 600 mcg buccal film CALCIUM CRB&NIN-R0-ZJG94-GENIS ORAL Take 2 tablets by mouth two [...] by Gadiel Yi . JONES TIWARI MD [facility] AT [facility] [address] Mailcode: [place] [address] I spent 31 minutes with [...] [address]ann[address] | | | | | | [place], [place] | | | | | | [address] | | | | | | [phone] | | | | | | | | +--------+---------+ + + + documented as of this encounter Visit Diagnoses + + | Diagnosis | + + | Ventral hernia without obstruction or gangrene - Primary Ventral hernia, unspecified, | | without mention of obstruction or gangrene | + + documented in this encounter
--- OUTSIDE RECORDS SUMMARY | ~2019-12-02 | XMS | Encounter Summary ---
Demographics + + + | Address | [address] | | | [place] [address] | + + + | Home Phone [...] [place], [place] | | | | | [address] | | + + + + + | Ellie Vang | ECON | Unknown | | + + + + + Care Team Providers + +------+ + | Care Stripper Preliminary Name | Role | Phone | + +------+ + | Fadi Goodrich DO | PCP | | + +------+ + Encounter Details +--------+---------+ + + + | Date | Type | Department | Care Team | Description | +--------+---------+ + + + | 02/22/ | Office | Preoperative | Gay Hoff, | Preop examination | | 2018 | Visit | [facility] at | DNP,ANP [address] | (Primary Dx) | | | | [facility] | [address] | | | | | [address] | [place], [place] | | | | | Mail Code: OC8PM | [address] | | | | | [facility] | [phone] | | | | | and Healing, | | | | | | Building [address] | | | | | | [place], [place] | | | | | | [address] | | | | | | [phone] | | | +--------+---------+ + + + [...] or walk. Surgery check-in location: Admitting - [facility], ninth floor lobby Surgery Check in [...] is after office hours, call the [facility] cyanide furnace operator at [phone] and ask them to page him or [...] d function per TTE ( 02/16/2017) from [facility]: Improved and stable. T2DM - controlled with [...] renal failure no electrolyte abnormalities no dialysis Urology/Science Center Display Builder: Within Defined Limits except as noted below [...] mg by mouth two times daily. CALCIUM CRB&NFC-C4-WUJ32-GENIS ORAL Take 2 tablets by mouth two [...] Brian Incisional hernia repair 03/01/2015 [facility]/ Dr. Cantu. Primary fascial closure [...] 98ms, QTC 460ms, TTE ( 02/16/2017) - [employer] 1. Overall left ventricular systolic function is normal with, an EF between 60 - 65 %. 2. The right ventricle is normal in size and function. 3. No significant valvular abnormalities are noted. 4. In comparison to the previous (technically difficult) echocardiographic study done 01/01, no signfiicant changes are noted. TTE (02/17/2016) - [employer] Conclusions 1. There is normal left ventricular [...] and resp iratory change. TTE (11/07/2015) - [facility] Final Impressions: 1. The interpretation of images [...] d function per TTE ( 02/16/2017) form [facility]. Improved and stable. - Confirmed with Dr. [...] Advised to bring her own apparatus for [facility]. GERD - On omeprazole. Chronic [...] to this patient's care. Gay Hoff, ERENDIRA,ANP [facility] 4TH FLOOR [address] [address] I spent time (45 minutes, >50% [...] [address] | | | | | | [place], [place] | | | | | | [address] | | | | | | [phone] | | | | | | | | +--------+---------+ + + + + + +--------+ + + | Name | Type | Priori | Associated Diagnoses | Order Schedule | | | | ty | | | + + +--------+ + + | COMMUNICATION TO [facility] | Procedures | Routin | Preop examination | Ordered: 02/22/2018 | | LAB DRAW | | e | | | + + +--------+ + + documented as of this encounter Procedures + +--------+ + + + | Procedure Name | Priori | Date/Time | Associated Diagnosis | Comments | | | ty | | | | + +--------+ + + + | [place] COLLECTION VENOUS | Routin | 02/22/2018 | [...] effect January 07 | [facility] | | 2017. New reference [...] | + + + + + | [facility] | [address] | [place] [address] | | | SERVICES, CORE | CLARENCE [...] [facility] | [address] | [place] [address] | | | SERVICES, | [address] [...] | + + + + + | [facility] | [address] | [place] [address] | | | SERVICES, | [address] [...] [facility] | | considered for monitoring long term care phlebotomist glycemic control in patients with: | LABORATORY [...] [facility] | [address] | [place] [address] | | | SERVICES, SPECIAL | PARK [...] | [facility] | [address] | [place] [address] | | | LYDIA RANGEL | CLARENCE [...] + + + + + + | SHALOM | 460 | ms | [facility] [...] + + + + + | [facility] | [address] | [place], [place] | | | CARDIOLOGY | [address] | [address] | | + + + + + documented in this encounter Visit Diagnoses + + | Diagnosis | + + | Preop examination - Primary Preoperative examination, unspecified | + + documented in this encounter
--- OUTSIDE RECORDS SUMMARY | ~2019-12-02 | XMS | Encounter Summary ---
Demographics + + + | Address | [address] | | | [place] [address] | + + + | Home Phone [...] + | Katalina Padilla | ECON | [address] | | | | | [place], [place] | | | | | [address] | | + + + + + | Ellie Vang | ECON | Unknown | | + + + + + Care Team Providers + +------+ + | Care Hand Potter Name | Role | Phone | + +------+ + | Kenyatta Cardenas MD | PCP | | + +------+ + Encounter Details +--------+ + + + + | Date | Type | Department | Care Team | Description | +--------+ + + + + | 05/03/ | Inside | [facility] at [facility] | Ion Pandey, | | | 2018 | Referral | [facility] [address] | MD [address] | | | | Order | [address] Mailcode: | [place], [place] | | | | | [address] [place] [address] | [address] | | | | | Health and Healing, | [phone] | | | | | Building 2 | | | | | | [place], [place] | | | | | | [address] | | | | | | [phone] | | | +--------+ + + + [...] | | | | | | [place], [place] | | | | | | [address] | | | | | | [phone] | | | | | | | [...]
--- OUTSIDE RECORDS SUMMARY | ~2019-12-02 | XMS | Encounter Summary ---
Demographics + + + | Address | [address] | | | [place] [address] | + + + | Home Phone [...] [place], [place] | | | | | [address] | | + + + + + | Ellie Vang | ECON | Unknown | | + + + + + Care Team Providers + +------+ + | Care Teradata Developer Name | Role | Phone | [...] | [facility] | | | with CARDIAC EXERCISE SPECIALIST | | hypertension | [address] | [facility] [address] | | | | | Right | [address] | [address] | | | | | heart | [place], [place] | Mailcode: | | | | | failure | [address] | Center for | | | | | ([facility]) Type | Phone: | Health and | | | | | 2 diabetes | [phone] | Healing, | | | | | mellitus | Fax: | Building 2 | | | | | without | [phone] | [place], [place] | | | | | complication | | [address] | | | | | , with | | Phone: | | | | | long-term | | | | | | | current use | | Fax: | | | | | of insulin | | [phone] | | | | | ([facility]) | | [...] Nilesh-en-Y | | 2019 | Visit | [place] [facility] [address] | WELDER [employer] [address] | gastric bypass | | | | [address] | [place], [place] | (Primary Dx); | | | | Mailcode: [place] | [address] | Intertriginous | | | | for Health and | [phone] | candidiasis | | | | [facility], [facility] | | | | | | [place], [place] | | | | | | [address] | | | | | | [phone] | | | +--------+---------+ + + + [...] a new PCP, Dr. Cardenas in [facility]. Bariatric Measures: Activity: walking 1.5-2 miles [...] limb 150 cm or less 8 [facility] Social History Social History Marital [...] History Narrative Updated 11/09/15 She lives in [place] with her mother and her sister (also her caregiver) lives in an apa rtment/duplex below. She has 2 grandchildren (age 4 and 7) who live with her daughter and son-in-law Her boyfriend lives in [place] HFpEF, DM2, HTN, Sleep Apnea (unable to [...] program here and refer her to our rn cardiac rehab who also has expertise in physical activity [...] tongue once daily., Disp: , Rfl: CALCIUM CRB&LHD-I2-PCC86-GENIS ORAL, Take 2 tablets by mouth two [...] n/a -HTN: still on medications -Diabetes: seeing stock feeder in December, hopes to eliminate Metformin then as recent A1c was normal Return to bariatric clinic in 6 months for 1 year follow up visit See your primary care provider for adjusting any other medications. Call if any abdominal pain, n/v/d or other issues. Pt agrees to plan and will call and/or send Kavalia message if any issues. Start time 2:45, end time 3:10. I spent a total of 25 minutes face to face with this patie nt. Over 50% of visit was in counseling. HILDA Davalos Bariatric Surgery Nurse Practitioner [facility] | [address] | [place], [place] | [address] | documented in this encounter Plan of Treatment +--------+---------+ + + + | Date | Type | Specialty | Care Team | Description | +--------+---------+ + + + | 03/15/ | Office | Cardiology | Randell Franks, | | | 2019 | Visit | | [address] | | | | | | [place], [place] | | | | | | [address] | | | | | | [phone] | | | | | | | [...] + + + + + | [facility] | [address] | [place] [address] | | | SERVICES, CORE | PARK [...] + + + + + | [facility] | [address] | [place] [address] | | | SERVICES, LYDIA | CLARENCE [...] INTFC | | | | determined by [employer] | | | | | | [employer]. See | | | | | | Compliance Statement B: | | | | | | Dibsie.[employer]/CSPerformed | | | | | | by [employer],[address] | | | | | | [address] [facility] | | | | | | [address] | | | | | | [phone].Dibsie. | | | | | | comIsmael [...] [facility] | [address] | [place], [place] | | | UNIV PTH - INTFC | | [address] | | + + + + + [...] B: | | | | | | Dibsie.[employer]/CSPerformed | | | | | | by [employer],[address] | | | | | | [address], [facility] | | | | | | [address] | | | | | | [phone].Dibsie. | | | | | | [facility] center[facility] MD, | | | | [...] [facility] | [address] | [place], [place] | | | UNIV PTH - INTFC | | [address] | | + + + + + [...] [facility] | | | (YEN NOAH) | [employer],500 | | REG UNIV | | | SERUM | [facility],[place] | | PTH - INTFC | | | | [address] | | | | | | [phone]-[email or web address]. | | | | | | Ismael [...] B: | | | | | | Tripl/CS | | | | + + + + + + + + | Specimen | + + | Blood - Blood | | (substance) | + + + + + + + | Performing | Address | City/State/Zipcode | Phone Number | | Organization | | | | + + + + + | [facility] | [address] | [place], [place] | | | UNIV PTH - INTFC | | [address] | | + + + + + [...] | [address] | [place] [address] | | | SERVICES, CORE | CLARENCE [...] + + + + + | [facility] [employer] | [address] | [place] [address] | | | SERVICES, CORE | CLARENCE [...] | | | | | determined by [employer] | | | | | | Laboratories. See | | | | | | Compliance Statement B: | | | | | | Tripl/CSPerformed | | | | | | by [employer],[address] | | | | | | [facility] | | | | | | [address] | | | | | | [phone].Dibsie. | | | | | | [facility] MD, | | | | | | Lab. Director | | | | + + + + + + + + | Specimen | + + | Blood - Blood | | (substance) | + + + + + + + | Performing | Address | City/[facility] | Phone Number | | Organization | | | | + + + + + | [facility] | [address] | [place], [place] | | | UNIV PTH - INTFC | | [address] | | + + + + + [...] | + + + + + | [facility] | [address] | [place] [address] | | | SERVICES, CORE | CLARENCE [...] | | | | | determined by [facility] | | | | | | Laboratories. See | | | | | | Compliance Statement B: | | | | | | Dibsie.[employer]/CSPerformed | | | | | | by [employer],[address] | | | | | | [facility],[place] | | | | | | [address] | | | | | | [phone].Dibsie. | | | | | | comIsmael [...] [facility] | [address] | [place], [place] | | | UNIV PTH - INTFC | | [address] | | + + + + + [...] + + + + + | [facility] | [address] | [place] [address] | | | SERVICES, CORE | PARK [...] | + + + + + | [facility] | [address] | [place] [address] | | | SERVICES, SPECIAL | PARK [...] | + + + + + | [facility] | [address] | [place] [address] | | | SERVICES, CORE | CLARENCE [...] at | | | | | | [email or web address].[employer]/csPerfor | | | | | | med by [facility] | | | | | | Laboratories,[address] | | | | | | [place], [facility] [place] [address] | | | | | | [phone].Dibsie. | | | | | | [facility] center[facility]el MD, | | | | | | Lab. Director | | | | + + + + + + + + | Specimen | + + | Blood - Blood | | (substance) | + + + + + + + | Performing | Address | City/State/[facility] | Phone Number | | Organization | | | | + + + + + | [facility] | [address] | [place], [place] | | | UNIV PTH - INTFC | | [address] | | + + + + + [...] | | | LABORATORY | | | [place] | | | SERVICES, | | | [...] | + + + + + | [facility] | [address] | [place] [address] | | | SERVICES, CORE | CLARENCE [...]
--- OUTSIDE RECORDS SUMMARY | ~2019-12-02 | XMS | Encounter Summary ---
Demographics + + + | Address | [address] | | | [place] [address] | + + + | Home Phone [...] + | Organization | [facility] | | | and [...] Team Providers + +------+ + | Care Pocket Machine Operator Name | Role | Phone | + +------+ + PCP | Unavailable | + +------+ + Encounter Details +--------+ + + + + | Date | Type | Department | Care Team | Description | +--------+ + + + + | 08/31/ | Hospital | [facility] | Erich Wells | | | 2004 | Encounter | MED CTR SLEEP | MD Michael [address] | | | | | CENTER [address] | [address] [place] | | | | | [place], [place] | [place] [address] | | | | | [address] | [phone] | | | | | [phone] | | | +--------+ + + + [...] [address] | | | | | | [place] [address] | | | | | | [phone] | | | | | | | | +--------+---------+ + + + documented as of this encounter Visit Diagnoses Not on filedocumented in this encounter"
--- OUTSIDE RECORDS SUMMARY | ~2019-12-02 | XMS | Encounter Summary ---
Demographics + + + | Address | [address] | | | [place] [address] | + + + | Home Phone [...] [place], [place] | | | | | [address] | | + + + + + | Ellie Vang | ECON | Unknown | | + + + + + Care Team Providers + +------+ + | Care Payroll Director Name | Role | Phone | [...] | | | | | (HCC) | [place], [place] | Hospital, | | | | | Procedures | [address] | 10th Floor | | | | | CT ABDOMEN & | Phone: | [place], [place] | | | | | PELVIS WWO | | [address] | | | | | IV CONTRAST | Fax: | Phone: | | | | | DC CT | [phone] | [phone] | | | | | ABDOMEN&PELV | | Fax: | | | | | IS | | [phone] | | | | | W/CONTRAST | [...] [facility] | | | | | | | Health and | | | | | | | Healing, | | | | | | | Building 2 | | | | | | | [place], [place] | | | | | | | [address] | | | | | | | Phone: | | | | | | | [phone] | | | | | | | Fax: | | | | | | | [phone] | +--------+--------+ + + + + Encounter [...] | | [address] | Ave [place], [place] | obesity (HCC) | | | | Mailcode: [place] | [address] | | | | | [facility] and | [phone] | | | | | [facility] 2 | | | | | | [place], [place] | | | | | | [address] | | | | | | [phone] | | | +--------+---------+ + + + [...] in th e air, Use a chair and couch maker.... And get it really dry. Then use corn starch ..... Then use medicated powder... Please go to the 3rd floor for the study... [place] [id number] documented in this encounter Progress Notes Shereen Pinto ACNP - 10/02/2014 11:14 AM PDTFormatting of this note might be different fro m the original. BARIATRIC INITIAL VISIT Provider: Shereen Pinto DNP, ACNP, CASTING MACHINE OPERATOR AUTOMATIC Referring Provider: Dr. Goodrich Reason for Requested [...] with the surgeon. Shereen Pinto DNP, ACNP, CASTING MACHINE OPERATOR AUTOMATIC Nurse Practitioner for Bariatric Surgery [facility] | [address] | [place], [place] | [address] | Potential Contraindications to Bariatric Surgery Age [...] [address] | | | | | | [place], [place] | | | | | | [address] | | | | | | [phone] | | | | | | | [...] | | + +---------+ + + | [facility] DEPARTMENT OF | | | | | RADIOLOGY | | | | + +---------+ + + documented in this encounter Visit Diagnoses + + | Diagnosis | + + | Abdominal pain - Primary | + + | Morbid obesity (HCC) Morbid obesity | + + documented in this encounter
--- OUTSIDE RECORDS SUMMARY | ~2019-12-02 | XMS | Encounter Summary ---
Demographics + + + | Address | [address] | | | [place] [address] | + + + | Home Phone [...] [place], [place] | | | | | [address] | | + + + + + | Ellie Vang | ECON | Unknown | | + + + + + Care Team Providers + +------+ + | Care Division Superintendent Name | Role | Phone | + +------+ + | Fadi Goodrich DO | PCP | | + +------+ + Encounter Details +--------+------+ + + + | Date | Type | Department | Care Team | Description | +--------+------+ + + + | 10/12/ | Lab | Laboratory at [facility] | | | | 2019 | | [address] | | | | | | [place], [place] | | | | | | [address] | | | | | | [phone] | | | +--------+------+ + + + [...] [address] | | | | | | [place], [place] | | | | | | [address] | | | | | | [phone] | | | | | | | [...] | [facility] | [address] | [place] [address] | | | CLAIRE, LYDIA | CLARENCE [...] INTFC | | | | determined by H2020 | | | | | | [email or web address]. See | | | | | | Compliance Statement B: | | | | | | Ping[employer]/CSPerformed | | | | | | by [employer],[address] | | | | | | [facility],[place] | | | | | | [address] | | | | | | [phone].[employer]. | | | | | | Orchestra NetworksIsmael MD, | | | | | | [...] [facility] | [address] | [place], [place] | | | UNIV PTH - INTFC | | [address] | | + + + + + ZINC, SERUM (10/12/2018 3:29 PM PDT) + + + + + + | Component | Value | Ref Range | Performed | Pathologist | | | | | At | Signature | + + + + + + | ZINC SERUM | 58 (L)Comment: | 60 - 120 ug/dL | [facility] | | | | INTERPRETIVE | | [...] | | | | | determined by H2020 | | | | | | Laboratories. See | | | | | | Compliance Statement B: | | | | | | PingStamp/CSPerformed | | | | | | by [employer],[address] | | | | | | Natalia Martinez, [place] | | | | | | [address] | | | | | | [phone].[employer]. | | | | | | Ismael [...] | + + + + + | [facility] | [address] | [place], [place] | | | UNIV PTH - INTFC | | [address] | | + + + + + [...] [facility] | | | (YEN NOAH) | [facility],[address] | | REG UNIV | | | SERUM | Natalia Martinez [place] | | PTH - INTFC | | | | [address] | | | | | | [phone].aruplab. | | | | | | Ismael [...] [facility] | | | | | | [email or web address]. See | | | | | | Compliance Statement B: | | | | | | Ping[employer]/CS | | | | + + + + + + + + | Specimen | + + | Blood - Blood | | (substance) | + + + + + + + | Performing | Address | City/State/Zipcode | Phone Number | | Organization | | | | + + + + + | [facility] | [address] | [place], [place] | | | UNIV PTH - INTFC | | [address] | | + + + + + [...] [facility] | [address] | [place] [address] | | | LYDIA RANGEL | CLARENCE [...] + | [facility] | [address] | [place] [address] | | | CLAIRE, LYDIA | CLARENCE [...] | | | | | determined by H2020 | | | | | | Laboratories. See | | | | | | Compliance Statement B: | | | | | | [employer].Orchestra Networks/CSPerformed | | | | | | by [employer],[address] | | | | | | [place] [facility] | | | | | | [address] | | | | | | [phone].[employer]. | | | | | | com, [...] [facility] | [address] | [place], [place] | | | UNIV PTH - INTFC | | [address] | | + + + + + [...] + | [facility] | [address] | [place] [address] | | | SERVICES, CORE | PARK [...] | | | | | determined by H2020 | | | | | | Laboratories. See | | | | | | Compliance Statement B: | | | | | | [employer].Or[employer]/CSPerformed | | | | | | by [employer],[address] | | | | | | [place] | | | | | | [address] | | | | | | [phone].[employer]. | | | | | | com, Ismael Willis MD, | | | | | | Lab. Director | | | | + + + + + + + + | Specimen | + + | Blood - Blood | | (substance) | + + + + + + + | Performing | Address | City/[facility] | Phone Number | | Organization | | | | + + + + + | [facility] | [address] | [place], [place] | | | UNIV PTH - INTFC | | [address] | | + + + + + [...] [facility] | [address] | [place] [address] | | | SERVICES, CORE | PARK [...] [facility] | [address] | [place] [address] | | | SERVICES, SPECIAL | PARK [...] + | [facility] | [address] | [place] [address] | | | LYDIA RANGEL | CLARENCE [...] at | | | | | | [email or web address] | | | | | | med by [facility] | | | | | | [facility],[address] | | | | | | [place] [address] | | | | | | [phone].[employer]. | | | | | | [facility] hospitalIsmael MD, | | | | | | Lab. Director | | | | + + + + + + + + | Specimen | + + | Blood - Blood | | (substance) | + + + + + + + | Performing | Address | City/State/[facility] | Phone Number | | Organization | | | | + + + + + | [facility] | [address] | [place], [place] | | | UNIV PTH - INTFC | | [address] | | + + + + + [...] [facility] | [address] | [place] [address] | | | SERVICES, LYDIA | CLARENCE BONNER | | | + + + + + documented in this encounter Visit Diagnoses Not on filedocumented in this encounter"
--- OUTSIDE RECORDS SUMMARY | ~2019-12-02 | XMS | Encounter Summary ---
Demographics + + + | Address | [address] | | | [place] [address] | + + + | Home Phone [...] [place], [place] | | | | | [address] | | + + + + + | Ellie Vang | ECON | Unknown | | + + + + + Care Team Providers + +------+ + | Care Project Mgr Name | Role | Phone | [...] | | [address] | [place], [place] | oral tablet); | | | | Mailcode: [place] | [address] | Refill Request | | | | [facility] | [phone] | | | | | and [place], | | | | | | Building [address] | | | | | | [place], [place] | | | | | | [address] | | | | | | [phone] | | | +--------+--------+ + + + [...] [address] | | | | | | [place], [place] | | | | | | [address] | | | | | | [phone] | | | | | | | | +--------+---------+ + + + documented as of this encounter Visit Diagnoses Not on filedocumented in this encounter"
--- OUTSIDE RECORDS SUMMARY | ~2019-12-02 | XMS | Encounter Summary ---
Demographics + + + | Address | [address] | | | [place] [address] | + + + | Home Phone [...] [place], [place] | | | | | [address] | | + + + + + [...] 2012 | | Center at [facility] [address] | MD [address] | | | | | [address] | [facility] | | | | | Mailcode: [place] | [place], [place] | | | | | [facility] and | [address] | | | | | [facility], [facility] 2 | [phone] | | | | | [place], [place] | | | | | | [address] | | | | | | [phone] | | | +--------+ + + + [...] [address] | | | | | | [place], [place] | | | | | | [address] | | | | | | [phone] | | | | | | | | +--------+---------+ + + + documented as of this encounter Visit Diagnoses Not on filedocumented in this encounter"
--- OUTSIDE RECORDS SUMMARY | ~2019-12-02 | XMS | Encounter Summary ---
Demographics + + + | Address | [address] | | | [place] [address] | + + + | Home Phone [...] [place], [place] | | | | | [address] | | + + + + + | Ellie Vang | ECON | Unknown | | + + + + + Care Team Providers + +------+ + | Care Millwright Name | Role | Phone | + +------+ + | Fadi Goodrich DO | PCP | | + +------+ + Encounter Details +--------+ + + + + | Date | Type | Department | Care Team | Description | +--------+ + + + + | 10/19/ | Abstract | Digestive Health | Clinic, Surgery | | | 2017 | | [place] at [facility] [address] | | | | | | [address] | | | | | | Mailcode: [place] | | | | | | [facility] and | | | | | | [facility] 2 | | | | | | [place], [place] | | | | | | [address] | | | | | | [phone] | | | +--------+ + + + [...] | | | | | [place], [place] | | | | | | [address] | | | | | | [phone] | | | | | | | | +--------+---------+ + + + documented as of this encounter Visit Diagnoses Not on filedocumented in this encounter"
--- OUTSIDE RECORDS SUMMARY | ~2019-12-02 | XMS | Encounter Summary ---
Demographics + + + | Address | [address] | | | [place] [address] | [...] + | Author | [facility] | | | and Jeffana | + + + | Organization | [facility] | | | and Jeffana [...] Providers + +------+ + | Care Retail Department Manager Name | Role | Phone [...] + + | 10/26/ | Virtual | [facility] | Sulema Altamirano | Chronic diastolic | | 2019 | Office | CARDIOLOGY [place] | [address] | heart failure (HCC) | | | Visit | [address] | [address] | (Primary Dx); | | | | [address] | [place] [address] | History of sinus | | | | [place] | [phone] | tachycardia; History | | | | [address] | | of stroke; HTN, | | | | [phone] | | goal below 130/80; | | [...] minutes of medical discussion via telephone visit (22690) Patient has not been seen in office [...] with previous dysfunctional RV treated at [facility] with diuresis and hospitalization for one month., sleep apnea treated with BiPAP, t ype II diabetes now resolved with weight loss, hypothyroidism, previous morbid obesity with alveolar hypoventilation, 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 Fu, Her current and previous testing [...] to lose weight. She followed up with auto refinisher at [facility], Dr. Franks, who reported that her diabetes [...] weight loss. Hypothyroidism,followed by Dr. Kat alva, auto refinisher at [facility]) . Denies excessive thirst or hunger. Psychiatric/Behavioral: [...] knee pain and hernia pain Lives in [facility] ith her mother who smokes. . Sister is manager critical care unit. Grandchildren ages 4 and 7 live with he r daughter and son-in-law. Disabled , on disability .01/24/2019: working with [employer] to get her own place. Outpatient Medications Prior to Visit Medication Sig Dispense Refill ALPRAZolam (XANAX) 0.5 mg tablet Take 0.5-1 mg by mouth 3 times daily as needed. ascorbic acid (VITAMIN C) 500 MG tablet Take 1,000 mg by mouth Daily. atenolol (TENORMIN) 50 mg tablet Take 1 tablet by mouth nightly. 30 tablet 11 Yctayuy-Msldiympj-Lukpgzi D (CITRACAL CALCIUM+D PO) Take 4 tablets [...] mL every day by injection route. rizatriptan (MAXALT-ERP PROGRAMMER) 5 mg disintegrating tablet Take 5 mg by mouth as needed for Mi graine. May repeat in 2 hours if needed spironolactone (ALDACTONE) 50 mg tablet Take 50 mg by mouth Daily. thyroid (SUPERVISOR BEAM DEPARTMENT THYROID) 30 mg tablet SUPERVISOR BEAM DEPARTMENT Thyroid 30 mg tablet TAKE ONE TABLET [...] Ascending aorta not well seen Echo: 02/16/2017: ([facility]): normal EF of 60-65% , accurate assessment of diastolic function i mpeded by poor tissue doppler, RV normal in size and function, with no significant valvular disease, and aortic root, ascending aorta , and aortic arch normal Echo: 01/02/2016 ([facility]): TDS, cardiac chamber dimensions grossly NML, LVEF >70%, rodriguez tolic function normal for patient. Unable to assess segmental wall motion. RV grossly norm al. Aortic valve sclerotic, no As/AI. Mitral and tricuspid valves grossly normal. Trace T R. No pericardial effusion VASCULAR TESTING AND PROCEDURES Left lower extremity DVT, presumed PE: 10/2015 [facility]. treated with heparin drip and Coumadin 10 in hospital, with Coumadin 6 months as outpatient, ASA 81 mg continued Venous US: right leg, 04/28/2016: No evidence of DVT. EKG EKG 10/27: ([facility]) Normal sinus rhythm. Normal EKG. Rate 93 bpm, NC 172 ms, QRS 90 ms, QTC 465 ms personally reviewed by me in the office today) EK02/05: Sinus tachycardia, otherwise normal. Rate 160 bpm, NC 174 ms, QRS 74 ms, QTC 451 ms (personally reviewed by me in the office today and no significant change seen fro m EKG done in October 2016 except for faster heart rate) EK04/26/2018: Normal sinus rhythm, rate 74 bpm, NC 182 ms, QRS 96 ms, QTC 472 ms, tracin g personally reviewed by me, and compared to previous EKG, heart rate is now better controll ed, otherwise similar morphology EK04/28/2019: Normal sinus rhythm, right axis. Rate 74 bpm, NC 170 ms, QRS 88 ms, QTC 45 [...] elevated, requiring increased calcium dosing from her auto refinisher. She is being closely monitored with her [...] she needs to be retested for sleep facilities and grounds director ea given her large weight loss, and [...] continuity of care purp ose Maryse MARKS [facility] Cardiology 10/28/2019 ERdomerritt han in this [...] [address] | | | | | | [place] [address] | | | | | | [phone] | | | | | | | [...]
--- OUTSIDE RECORDS SUMMARY | ~2019-12-02 | XMS | Encounter Summary ---
Demographics + + + | Address | [address] | | | [place] [address] | + + + | Home Phone [...] [place], [place] | | | | | [address] | | + + + + + | Ellie Vang | ECON | Unknown | | + + + + + Care Team Providers + +------+ + | Care Veterinary Science Teacher Name | Role | Phone | [...] [facility] [address] | ACNP [address] | | | | | [address] | Ave [place], [place] | | | | | Mailcode: [place] | [address] | | | | | for Health and | | | | | | [facility] 2 | | | | | | [facility] [place] | | | | | | [address] | | | | | | | [...] [address] | | | | | | [place], [place] | | | | | | [address] | | | | | | [phone] | | | | | | | | +--------+---------+ + + + documented as of this encounter Visit Diagnoses Not on filedocumented in this encounter"
--- OUTSIDE RECORDS SUMMARY | ~2019-12-02 | XMS | Encounter Summary ---
Demographics + + + | Address | [address] | | | [place] [address] | + + + | Home Phone [...] [place], [place] | | | | | [address] | | + + + + + | Ellie Vang | ECON | Unknown | | + + + + + Care Team Providers + +------+ + | Care Cleaner Name | Role | Phone | [...] | | | | and over, | [place], [place] | [facility] | | | | | adult (HCC) | [address] | for Health | | | | | Severe | Phone: | and Healing, | | | | | muscle | | Building 1, | | | | | deconditioni | Fax: | [address] Floor | | | | | ng | [phone] | [place], [place] | | | | | Procedures | | [address] | | | | | PHYSICAL | | Phone: | | | | | THERAPY | | [phone] | | | | | REFERRAL | | Fax: | | | | | | | [phone] | +--------+--------+ + + + + Encounter Details +--------+ + + + + | Date | Type | Department | Care Team | Description | +--------+ + + + + | 02/02/ | Cemetery Warden | Digestive Health | Shereen Georges, | Morbid obesity with | | 2017 | | Center at [facility] [address] | ACNP [address] | BMI of 70 and over, | | | | [address] | Ave [facility] [place] | adult (HCC) (Primary | | | | Mailcode: Center | [address] | Dx); Severe muscle | | | | for Health and | | deconditioning | | | | Healing, Building [address] | | | | | | [place], [place] | | | | | | [address] | | | | | | | [...] | | 2019 | Visit | | [address] | | | | | | [place], [place] | | | | | | [address] | | | | | | [phone] | | | | | | | [...]
--- OUTSIDE RECORDS SUMMARY | ~2019-12-02 | XMS | Encounter Summary ---
Demographics + + + | Address | [address] | | | [place] [address] | + + + | Home Phone [...] [place], [place] | | | | | [address] | | + + + + + | Ellie Vang | ECON | Unknown | | + + + + + Care Team Providers + +------+ + | Care Rn Ent Name | Role | Phone | + [...] + + + | Pending | | Cardiology | Diagnoses | Kp, | Tiny, | | Review | | | Morbid | Fadi Person DO | MD Randell | | | | | obesity | [address] | | | | | ([facility]) Type | [address] | Ave | | | | | 2 diabetes | [place], | [place], [place] | | | | | mellitus | [place] [address] | [address] | | | | | without | Phone: | Phone: | | | | | complication | [phone] | [phone] | | | | | (HCC) | Fax: | Fax: | | | | | Procedures | [phone] | [phone] | | | | | [place] EST | | | | | | [...] 2020 | Visit | [facility] | MD [address] | unspecified type | | | | [place] at | [place], [place] | (Primary Dx); Severe | | | | [place] [address] | [address] | Morbid obesity | | | | [address] [facility] | [phone] | (HCC), BMI 88 | | | | [facility] | | | | | | [place], [place] | | | | | | [address] | | | | | | [phone] | | | +--------+---------+ + + + [...] Cannot tolerate CPAP Severe Morbid obesity ([facility]), BMI 88 11/12/2012 Priority: 4 Overview [...] due to Bromocriptine Type 2 diabetes mellitus ([facility]) 04/14/2013 Past Surgical History Procedure Laterality Date [...] [facility], [facility] Current Outpatient Medications Medication [...] by mouth once daily at bedtime. CALCIUM CRB&EYH-O9-EMH83-GENIS ORAL Take 2 tablets by mouth two [...] 50 mg by mouth once daily. thyroid (GARNISHER THYROID) 30 mg oral tablet tab Take [...] 9 CREATININE PLASMA (LAB) 0.82 EGFR - PALESTINIAN >60 EGFR NON -PALESTINIAN >60 GLUCOSE, PLASMA (LAB) 94 CALCIUM, PLASMA [...] is currently being managed well by her Screen Vent Binder with diuretics and main tenance of her [...] management of her heart failure by her Screen Vent Binder 3) Continue management of her ventral hernia [...] | 03/15/ | Office | Cardiology | Tiny Randell, | | | 2019 | Visit | | MD [address] | | | | | | [place], [place] | | | | | | [address] | | | | | | [phone] | | | | | | | | +--------+---------+ + + + documented as of this encounter Procedures + +--------+ + + + | Procedure Name | Priori | Date/Time | Associated Diagnosis | Comments | | | ty | | | | + +--------+ + + + | CA COLLECTION VENOUS | Routin | 09/15/2019 | [...] [facility] | [address] | [place] [address] | | | SERVICES, CORE | PARK [...] HOSPITAL LABORATORY | [address] | [place] [address] | | | SERVICES, LYDIA | CLARENCE [...] 5.2Comment: Hgb A1C | <5.7 % | [facility] | | | A1C | Interpretive | [...] | + + + + + | [facility] | [address] | [place] [address] | | | SERVICES, SPECIAL | CLARENCE [...]
--- OUTSIDE RECORDS SUMMARY | ~2019-12-02 | XMS | Encounter Summary ---
Demographics + + + | Address | [address] | | | [place] [address] | + + + | Home Phone [...] [place], [place] | | | | | [address] | | + + + + + | Ellie Vang | ECON | Unknown | | + + + + + Care Team Providers + +------+ + | Care Barrel Inspector Tight Name | Role | Phone | + [...] floor | | | | | | [place], [place] | | | | | | [address] | | | +--------+ + + + [...] [address] | | | | | | [place], [place] | | | | | | [address] | | | | | | [phone] | | | | | | | | +--------+---------+ + + + documented as of this encounter Visit Diagnoses Not on filedocumented in this encounter"
--- OUTSIDE RECORDS SUMMARY | ~2019-12-02 | XMS | Encounter Summary ---
Demographics + + + | Address | [address] | | | [place] [address] | + + + | Home Phone [...] [place], [place] | | | | | [address] | | + + + + + | Ellie Vagn | ECON | Unknown | | + + + + + Care Team Providers + +------+ + | Care Oil And Gas Specialist Name | Role | Phone | [...] | | [address] | Ave [place], [place] | | | | | Mailcode: [place] | [address] | | | | | for Health and | [phone] | | | | | [facility] 2 | | | | | | [facility] [place] | | | | | | [address] | | | | | | | [...] | | 2019 | Visit | | [address] | | | | | | [place], [place] | | | | | | [address] | | | | | | [phone] | | | | | | | | +--------+---------+ + + + documented as of this encounter Visit Diagnoses Not on filedocumented in this encounter"
--- OUTSIDE RECORDS SUMMARY | ~2019-12-02 | XMS | Encounter Summary ---
Demographics + + + | Address | [address] | | | [place] [address] | + + + | Home Phone [...] [place], [place] | | | | | [address] | | + + + + + | Ellie Vang | ECON | Unknown | | + + + + + Care Team Providers + +------+ + | Care Content Management Consultant Name | Role | Phone | [...] from Patient; | | 2017 | | [place] [address] | MD [address] | Postoperative | | | | Ave Mailcode: [facility] | [place], [place] | infection | | | | [facility] | [address] | | | | | and Healing, | [phone] | | | | | [place] [address] [facility] | | | | | | [place], [place] | | | | | | [address] | | | | | | [phone] | | | +--------+ + + + [...] [place] | | | | | | [address] | | | | | | [phone] | | | | | | | | +--------+---------+ + + + documented as of this encounter Visit Diagnoses Not on filedocumented in this encounter"
--- OUTSIDE RECORDS SUMMARY | ~2019-12-02 | XMS | Encounter Summary ---
Demographics + + + | Address | [address] | | | [place] [address] | + + + | Home Phone [...] [place], [place] | | | | | [address] | | + + + + + | Ellie Vang | ECON | Unknown | | + + + + + Care Team Providers + +------+ + | Care Garden Implement Mechanic Name | Role | Phone | + +------+ + | Fadi Goodrich DO | PCP | | + +------+ + Encounter Details +--------+ + + + + | Date | Type | Department | Care Team | Description | +--------+ + + + + | 03/02/ | Abstract | Digestive Health | Hernandez Brian, | | | 2012 | | Center at [facility] [address]85 | MD [address] | | | | | [address] | [facility] | | | | | Mailcode: [place] | [place], [place] | | | | | [facility] and | [address] | | | | | [facility], [facility] 2 | [phone] | | | | | [place], [place] | | | | | | [address] | | | | | | [phone] | | | +--------+ + + + [...] Flannery | | | | | | [place], [place] | | | | | | [address] | | | | | | [phone] | | | | | | | | +--------+---------+ + + + documented as of this encounter Visit Diagnoses Not on filedocumented in this encounter"
--- OUTSIDE RECORDS SUMMARY | ~2019-12-02 | XMS | Encounter Summary ---
Demographics + + + | Address | [address] | | | [place] [address] | + + + | Home Phone [...] [place], [place] | | | | | [address] | | + + + + + | Ellie Vang | ECON | Unknown | | + + + + + Care Team Providers + +------+ + | Care Tailer In Name | Role | Phone | [...] at [facility] | MD [address] | (phentermine 37.5 mg | | | | [address] | [place], [place] | ) | | | | Mailcode: [facility] | [address] | | | | | [facility] | [phone] | | | | | and Erick, | | | | | | [address] | | | | | | [place], [place] | | | | | | [address] | | | | | | [phone] | | | +--------+--------+ + + + [...] Flannery | | | | | | [place], [place] | | | | | | [address] | | | | | | [phone] | | | | | | | | +--------+---------+ + + + documented as of this encounter Visit Diagnoses Not on filedocumented in this encounter"
--- OUTSIDE RECORDS SUMMARY | ~2019-12-02 | XMS | Encounter Summary ---
Demographics + + + | Address | [address] | | | [place] [address] | + + + | Home Phone [...] [place], [place] | | | | | [address] | | + + + + + | Ellie Vang | ECON | Unknown | | + + + + + Care Team Providers + +------+ + | Care Placement Specialist Name | Role | Phone [...] 2017 | | [address] | [address] | [facility] | | | | [facility] | [place], [place] | | | | | Hospital Admitting | [address] | | | | | Desk Located on the | [phone] | | | | | 9th floor | | | | | | [place], [place] | | | | | | [address] | | | +--------+---------+ + + + [...] ACNP - 03/03/2018 9:49 AM PDT FORMERLY [facility] RED SURGERY INPATIENT DISCHARGE SUMMARY Author: KAIN [...] at minimum. 5. Follow with PCP for Experimental Worker within 1 - 2 weeks of [...] mg by mouth two times daily. CALCIUM CRB&RTO-C0-SJE36-GENIS ORAL Take 2 tablets by mouth two [...] yogurt or kefir. Zaria's Yogurt or Kefir, Socket Mobilefield Yogurt, and Bolocon i Namibian Yogurt are common brands with beneficial probiotics. [...] are available over the counter at most [facility] stores. Nausea/Vomiting/Difficulty Swallowing Nausea/Vomiting/Difficulty swallowing: [...] hours per your instructions. Some medications, like [place], have Tylenol in it. Make sure [...] (PCP) as this clinic does not provide [facility] services. When to [...] hours by calling the surgery office at [phone]. - After hours, weekends and holidays, you may call the hospital spinning operator at [phone] an d have the semiconductor wafers etch operator Red Surgery Team paged. OTHER DISCHARGE [...] at minimum. 5. Follow with PCP for Experimental Worker within 1 - 2 weeks of [...] Department Dept Phone Center 03/10/2018 1:30 PM [facility] at [facility] 6th Floor [phone] FO OD AND NUT 03/10/2018 3:05 PM Ronna Clarke Digestive [facility] at [facility] 6th Floor [phone] [facility] 04/01/2018 10:30 AM [facility] at [facility] 6th Floor [phone] FO OD AND NUT 04/01/2018 11:00 AM Ion Castanon Digestive [facility] at [facility] 6th Floor [phone] [facility] 05/27/2018 2:30 PM [facility] at [facility] 6th Floor [phone] FO OD AND NUT 05/27/2018 3:05 PM [facility] 6th Floor [phone] [facility] 05/27/2018 4:30 PM [facility] at [facility] 15th Floor [phone] Comprehensiv 06/04/2018 10:35 AM Randell Franks Cardiology Preventive at [facility] [phone] Cardiology Discharging Physician: KAIN Agee Attending Physician: Ion Castanon MD [facility] Red Surgery Pager# [phone] 9:50 AM 03/03/2018 documented in this enco [...] | | 0 | | | | CRB&AEN-C9-WWG36-GEN | mouth two times | | | [...] date of discharge 03/03/18 PARTHA Rajwinder MS3 [facility] [employer] Demarcus Menon [...] for care ride home (pt lives in [place]) Demarcus Alas M.D. General Surgery Resident PGY-1 Pager: [phone] Ion Ferrari MD - 10:00 AM PDTI [...] [place] | | | | | | [address] | | | | | | [phone] | | | | | | | [...] ve | 8:31 AM | ([facility]) | [...] AMES | [address] | [place], [place] | | | JUSTINE DAWN OF CARE | [address] | [address] | | | TESTS | | | [...] MARQUAM | [address] | [place] | | | JUSTINE DAWN OF JAKY | [address] | [address] | | | TESTS | | | [...] - MARQUAM | [address] | [place], [place] | | | JUSTINE DAWN OF CARE | [address] | [address] | | | TESTS | | | [...] AMES | [address] | [place], [place] | | | JUSTINE DAWN OF CARE | [address] | [address] | | | TESTS | | | [...] MARQUAM | [address] | [place], [place] | | | JUSTINE DAWN OF JAKY | [address] | [address] | | | TESTS | | | [...] MARQUAM | [address] | [place], [place] | | | L[place]PEZ POINT OF CARE | [address] | [address] | | | TESTS | | | [...] AMES | [address] | [place], [place] | | | JUSTINE DAWN OF CARE | [address] | [address] | | | TESTS | | | [...] MARQUAM | [address] | [place], [place] | | | JUSTINE DAWN OF CARE | [address] | [address] | | | TESTS | | | [...] MARQUAM | [address] | [place], [place] | | | [facility] POINT OF CARE | [address] | [address] | | | TESTS | | | [...] AMES | [address] | [place], [place] | | | [facility] POINT OF CARE | [address] | [address] | | | TESTS | | | [...] MARQUAM | [address] | [place], [place] | | | JUSTINE DAWN OF CARE | [address] | [address] | | | TESTS | | | [...] MARQUAM | [address] | [place], [place] | | | [facility] POINT OF CARE | [address] | [address] | | | TESTS | | | [...] AMES | [address] | [place], [place] | | | L[place] [facility] | [address] | [address] | | | TESTS | | | [...] MARQUAM | [address] | [place], [place] | | | JUSTINE DAWN OF CARE | [address] | [address] | | | TESTS | | | [...] | [address] | [place], [place] | | | [facility] POINT OF CARE | [facility] | [address] | | | TESTS | | | [...] AMES | [address] | [place], [place] | | | L[place] POINT OF CARE | [facility] | [address] | | | TESTS | | | [...] MARQUAM | [address] | [place], [place] | | | JUSTINE DAWN OF CARE | [address] | [address] | | | TESTS | | | [...] KWAKU | [address] | [place], [place] | | | JUSTINE DAWN OF CARE | [address] | [address] | | | TESTS | | | [...] (H) | 70 - 99 mg/dL | [facility] - | | | GLUCOSE, [...] AMES | [address] | [place], [place] | | | JUSTINE DAWN OF CARE | [address] | [address] | | | TESTS | | | [...] MARQUAM | [address] | [place], [place] | | | JUSTINE DAWN OF CARE | [address] | [address] | | | TESTS | | | [...] - MARQUAM | [address] | [place], [place] | | | [facility] POINT OF CARE | [address] | [address] | | | TESTS | | | [...] + + + | NKECHI AMES | [address] | [place], [place] | | | L[place] [facility] | [address] | [address] | | | TESTS | | | [...] MARQUAM | [address] | [place], [place] | | | JUSTINE DAWN OF CARE | [address] | [address] | | | TESTS | | | [...] MARPATAM | [address] | [place], [place] | | | JUSTINE DAWN OF CARE | [address] | [address] | | | TESTS | | | [...] AMES | [address] | [place], [place] | | | L[place] POINT OF CARE | [address] | [address] | | | TESTS | | | [...] MARQUAM | [address] | [place], [place] | | | JUSTINE DAWN OF CARE | [address] | [address] | | | TESTS | | | | + + + + + EGD (ESOPHAGOGASTRODUODENOSCOPY) (03/01/2018 11:21 AM PDT) + + + | Narrative | Performed At | + + + | Ion Castanon MD 03/01/2018 12:25 PM Date of Procedure: | | | 03/01/18 Primary Surgeon: Ion Castanon MD Co Surgeon or | | | assistant county engineer: Eldon Gonzalez MD, Chief Resident Alexx | [...] The jejunum was divided with 60 mm Roxana stapler with white | | | load [...] created in each limb and a 60mm Roxana stapler | | | with white load was fired to create a [id number]-xi-[id number] | | | jejunojejunostomy. The anastamosis was confirmed to be widely | | | patent and hemostatic. The common enterotomy was closed by placing | | | 2 stay sutures along the enterotomy for retraction and firing an | | | Roxana 60mm stapler with white load across the [...] | | | was entered. The 60mm Roxana stapler with blue load was placed | [...] blue load of the 60mm stapler. The Roxana was then fired | | | longitudinally towards the angle of His to create the gastric pouch, | | | leaving the gastrotomy from foreign body removal, on the pouch. | | | Dissection was performed retrogastric to connect posterior and | | | anterior dissection planes and ensure adequate fundus exclusion. | | | Additional fires of the Roxana stapler were performed with blue | | [...] with | | | 5 mm clip film writer. A 25mm Orvil was passed transorally by [...] was closed with 60mm | | | Roxana stapler with a white load. Medially and [...] present | | | as my assistant county engineer for the entire procedure, given the technically | | | challenging nature of this procedure. She assisted in all critical | | | steps of the procedure. Dr. Gonzalez was present for endoscopy at the | | | end of the procedure. Ion Castanon MD, FACS, [facility] | | | Bariatric Surgery | | [...] Co Surgeon or | | | assistant county engineer: Eldon Gonzalez MD, Chief Resident Alexx | [...] The jejunum was divided with 60 mm Roxana stapler with white | | | load [...] created in each limb and a 60mm Roxana stapler | | | with white load was fired to create a tjoh-do-whde | | | jejunojejunostomy. The anastamosis was confirmed to be widely | | | patent and hemostatic. The common enterotomy was closed by placing | | | 2 stay sutures along the enterotomy for retraction and firing an | | | Roxana 60mm stapler with white load across the [...] | | | was entered. The 60mm Roxana stapler with blue load was placed | [...] blue load of the 60mm stapler. The Roxana was then fired | | | longitudinally towards the angle of His to create the gastric pouch, | | | leaving the gastrotomy from foreign body removal, on the pouch. | | | Dissection was performed retrogastric to connect posterior and | | | anterior dissection planes and ensure adequate fundus exclusion. | | | Additional fires of the Roxana stapler were performed with blue | | [...] with | | | 5 mm clip film writer. A 25mm Orvil was passed transorally by [...] was closed with 60mm | | | Roxana stapler with a white load. Medially and [...] present | | | as my assistant county engineer for the entire procedure, given the technically | | | challenging nature of this procedure. She assisted in all critical | | | steps of the procedure. Dr. Gonzalez was present for endoscopy at the | | | end of the procedure. Ion Castanon MD, FACS, [facility] | | | Bariatric Surgery | | [...] MARPATAM | [address] | [place] | | | [facility] POINT OF CARE | [address] | [address] | | | TESTS | | | [...]
--- OUTSIDE RECORDS SUMMARY | ~2019-12-02 | XMS | Encounter Summary ---
Demographics + + + | Address | [address] | | | [place] [address] | + + + | Home Phone [...] + | Katalina Padilla | ECON | [address] | | | | | [place], [place] | | | | | [address] | | + + + + + | Ellie Vang | ECON | Unknown | | + + + + + Care Team Providers + +------+ + | Care Chief Concierge Name | Role | Phone | + +------+ + | Fadi Goodrich DO | PCP | | + +------+ + Encounter Details +--------+ + + + + | Date | Type | Department | Care Team | Description | +--------+ + + + + | 12/29/ | Abstract | Digestive Health | Hernandez Brian, | | | 2012 | | Center at [facility] [address] | MD [address] | | | | | Jacy Flannery | [facility] | | | | | Mailcode: [place] | [place], [place] | | | | | [facility] and | [address] | | | | | [facility] 2 | [phone] | | | | | [place], [place] | | | | | | [address] | | | | | | [phone] | | | +--------+ + + + [...] Flannery | | | | | | [place], [place] | | | | | | [address] | | | | | | [phone] | | | | | | | | +--------+---------+ + + + documented as of this encounter Visit Diagnoses Not on filedocumented in this encounter"
--- OUTSIDE RECORDS SUMMARY | ~2019-12-02 | XMS | Encounter Summary ---
Demographics + + + | Address | [address] | | | [place] [address] | + + + | Home Phone [...] [place], [place] | | | | | [address] | | + + + + + | Ellie Vang | ECON | Unknown | | + + + + + Care Team Providers + +------+ + | Care Tractor Technician Name | Role | Phone | + +------+ + | Fadi Goodrich DO | PCP | | + +------+ + Encounter Details +--------+ + + + + | Date | Type | Department | Care Team | Description | +--------+ + + + + | 02/13/ | Telephone | Cardiology | Randell Franks, | | | 2016 | | Preventive at [facility] | MD [address] | | | | | [address] | [facility] [place] | | | | | Mailcode: [facility] | [address] | | | | | [facility] | [phone] | | | | | and Healing, | | | | | | [address] | | | | | | [facility] [place] | | | | | | [address] | | | | | | [phone] | | | +--------+ + + + [...] | | 2019 | Visit | | [address] | | | | | | [place], [place] | | | | | | [address] | | | | | | [phone] | | | | | | | | +--------+---------+ + + + documented as of this encounter Visit Diagnoses Not on filedocumented in this encounter"
--- OUTSIDE RECORDS SUMMARY | ~2019-12-02 | XMS | Encounter Summary ---
Demographics + + + | Address | [address] | | | [place] [address] | + + + | Home Phone [...] [place], [place] | | | | | [address] | | + + + + + | Ellie Vang | ECON | Unknown | | + + + + + Care Team Providers + +------+ + | Care Weaver Wire Loom Name | Role | Phone | + [...] | | | | | | [address] [place], [place] | | | | | | [address] | | | | | | [phone] | | | +--------+ + + + [...] | | | | | | [place], [place] | | | | | | [address] | | | | | | [phone] | | | | | | | | +--------+---------+ + + + documented as of this encounter Visit Diagnoses Not on filedocumented in this encounter"
--- OUTSIDE RECORDS SUMMARY | ~2019-12-02 | XMS | Encounter Summary ---
Demographics + + + | Address | [address] | | | [place] [address] | + + + | Home Phone [...] + | Katalina Padilla | ECON | [address] | | | | | [place], [place] | | | | | [address] | | + + + + + | Ellie Vang | ECON | Unknown | | + + + + + Care Team Providers + +------+ + | Care Strategy Director Name | Role | Phone | [...] | Event | [address] | RMD [address] | | | | | [facility] | [address] | | | | | Hospital Admitting | [place], [place] | | | | | Desk Located on the | [address] | | | | | 9th floor | [phone] | | | | | [place], [place] | | | | | | [address] | Marcial Brunner CRNA | | | | | | [address] | | | | | | Lesly Gutiérrez [facility] | | | | | | [place] [address] | | | | | | [phone] | | | | | | | [...] Avance (l/min) | + + | [address] | + + | Et Dwaine | [...] [address] | | | | | | [place], [place] | | | | | | [address] | | | | | | [phone] | | | | | | | [...]
--- OUTSIDE RECORDS SUMMARY | ~2019-12-02 | XMS | Encounter Summary ---
Demographics + + + | Address | [address] | | | [place] [address] | + + + | Home Phone [...] [place], [place] | | | | | [address] | | + + + + + | Ellie Vang | ECON | Unknown | | + + + + + Care Team Providers + +------+ + | Care Neurophysiological Technician Name | Role | Phone | [...] [address] | [facility] [place] | | | | | Mailcode: CH9A | [address] | | | | | [facility] | [phone] | | | | | and Healing, | | | | | | [address] | | | | | | [facility] [place] | | | | | | [address] | | | | | | [phone] | | | +--------+ + + + [...] | | 2019 | Visit | | [address] | | | | | | [place], [place] | | | | | | [address] | | | | | | [phone] | | | | | | | | +--------+---------+ + + + documented as of this encounter Visit Diagnoses Not on filedocumented in this encounter"
--- OUTSIDE RECORDS SUMMARY | ~2019-12-02 | XMS | Encounter Summary ---
Demographics + + + | Address | [address] | | | [place] [address] | + + + | Home Phone [...] + | Katalina Padilla | ECON | [address] | | | | | [place], [place] | | | | | [address] | | + + + + + [...] | | 2019 | | Center at [facility] [address] | AGACNP [address] | | | | | [address] | [place], [place] | | | | | Mailcode: [place] | [address] | | | | | for [facility] and | | | | | | [place] [address] | | | | | | [place], [place] | | | | | | [address] | | | | | | | [...] Flannery | | | | | | [place] | | | | | | [address] | | | | | | [phone] | | | | | | | | +--------+---------+ + + + documented as of this encounter Visit Diagnoses Not on filedocumented in this encounter"
--- OUTSIDE RECORDS SUMMARY | ~2019-12-02 | XMS | Encounter Summary ---
Demographics + + + | Address | [address] | | | [place] [address] | + + + | Home Phone [...] [place], [place] | | | | | [address] | | + + + + + | Ellie Vang | ECON | Unknown | | + + + + + Care Team Providers + +------+ + | Care Commercial Estimator Name | Role | Phone | [...] | | | | | | | [place] for | | | | | | | Health and | | | | | | | Healing, | | | | | | | [address] | | | | | | | [place], [place] | | | | | | | [address] | | | | | | | Phone: | | | | | | | [phone] | | | | | | | Fax: | | | | | | | [phone] | +--------+--------+ + + + + Encounter Details +--------+---------+ + + + | Date | Type | Department | Care Team | Description | +--------+---------+ + + + | 06/16/ | Office | Digestive Health | Olga Lidia Montanez, | Morbid obesity (HCC) | | 2012 | Visit | Center at [facility] [address] | [address] [facility] | (Primary Dx); Type | | | | [facility] | [address] [facility] [address] | 2 diabetes mellitus | | | | [facility] and | [place], [place] | (HCC) | | | | [place] [address] | [address] | | | | | [place], [place] | | | | | | [address] | | | | | | [phone] | | | +--------+---------+ + + + [...] of Visit: 10:06 to 10:32 (26 minutes qcqi-ga-umoz with patient & friend) SUBJECTIVE: Is surprised she has gained weight; is disappointed. Still following her usual meal plan. H as d/c'd diet soda. Still struggling w/ eating out of boredom - choosing 100 kcal snacks but having ~3 of them at a time. Not as much emotional eating lately. Has been keeping food log s (on paper) - avg 6626-4148 kcal/d. Trying to increase activity. B: Atkins [...] provided. Olga Lidia Montanez RD, LD Pager [phone] documented in this en counter Plan of Treatment +--------+---------+ + + + | Date | Type | Specialty | Care Team | Description | +--------+---------+ + + + | 03/15/ | Office | Cardiology | Randell Franks, | | | 2019 | Visit | | MD [address] | | | | | | [place], [place] | | | | | | [address] | | | | | | [phone] | | | | | | | | +--------+---------+ + + + documented as of this encounter Procedures + +--------+ + + + | Procedure Name | Priori | Date/Time | Associated Diagnosis | Comments | | | ty | | | | + +--------+ + + + | MS MNT RE-ASSESSMNT | Routin | 06/16/2013 | [...]
--- OUTSIDE RECORDS SUMMARY | ~2019-12-02 | XMS | Encounter Summary ---
Demographics + + + | Address | [address] | | | [place] [address] | + + + | Home Phone [...] | [facility] Hernandez | | | and Jeffana [...] Providers + +------+ + | Care Physician Scientist Name | Role | Phone | + +------+ + PCP | Unavailable | + +------+ + Encounter Details +--------+ + + + + | Date | Type | Department | Care Team | Description | +--------+ + + + + | 12/23/ | Orders Only | [facility] | Conversion | | | 2017 | | NEPHROLOGY JESUS | Transaction, | | | | | [address] | Provider Unknown | | | | | [address] | | | | | | [address] | (Fax) | | | | | [phone] | | | +--------+ + + + [...] | | | | | | [place] [address] | | | | | | [phone] | | | | | | | [...]
--- OUTSIDE RECORDS SUMMARY | ~2019-12-02 | XMS | Encounter Summary ---
Demographics + + + | Address | [address] | | | [place] [address] | + + + | Home Phone | | + + + | Preferred Language | Unknown | + + + | Marital Status | | + + + | Confucianism Affiliation | Unknown | + + + | Race | Unknown | + + + | Ethnic Group | Unknown | + + + Author + + + | Author | [facility] | | | and Jeffana | + + + | Organization | [facility] | | | and Jeffana [...] Providers + +------+ + | Care Restaurant Kitchen And Service Manager Name | Role | [...] [place] | | | | | | [address] | (Fax) | | | | | [phone] | | | +--------+ + + + [...] RICHEY | | | | | | [place] [address] | | | | | | [phone] | | | | | | | [...]
--- OUTSIDE RECORDS SUMMARY | ~2019-12-02 | XMS | Encounter Summary ---
Demographics + + + | Address | [address] | | | [place] [address] | + + + | Home Phone [...] [place], [place] | | | | | [address] | | + + + + + | Ellie Vang | ECON | Unknown | | + + + + + Care Team Providers + +------+ + | Care Printed Circuit Boards Contact Printer Name | Role | Phone | [...] | | | | | | [address] [place], [place] | | | | | | [address] | | | | | | [phone] | | | +--------+ + + + [...] [address]ann[address] | | | | | | [place], [place] | | | | | | [address] | | | | | | [phone] | | | | | | | | +--------+---------+ + + + documented as of this encounter Visit Diagnoses Not on filedocumented in this encounter"
--- OUTSIDE RECORDS SUMMARY | ~2019-12-02 | XMS | Encounter Summary ---
Demographics + + + | Address | [address] | | | [place] [address] | + + + | Home Phone [...] [place], [place] | | | | | [address] | | + + + + + | Ellie Vang | ECON | Unknown | | + + + + + Care Team Providers + +------+ + | Care Septic Pump Truck Driver Name | Role | Phone [...] System [facility] | [facility] | | | | | [address] | [place], [place] | | | | | Mail Code: OC8PM | [address] | | | | | [facility] | [phone] | | | | | and Healing, | | | | | | Building [address] | | | | | | [place], [place] | | | | | | [address] | | | | | | [phone] | | | +--------+ + + + [...] [place] | | | | | | [address] | | | | | | [phone] | | | | | | | | +--------+---------+ + + + documented as of this encounter Visit Diagnoses Not on filedocumented in this encounter"
--- OUTSIDE RECORDS SUMMARY | ~2019-12-02 | XMS | Encounter Summary ---
Demographics + + + | Address | [address] | | | [place] [address] | + + + | Home Phone [...] [place], [place] | | | | | [address] | | + + + + + | Ellie Vang | ECON | Unknown | | + + + + + Care Team Providers + +------+ + | Care Fish Conservationist Name | Role | Phone | + +------+ + | Fadi Goodrich DO | PCP | | + +------+ + Encounter Details +--------+ + + + + | Date | Type | Department | Care Team | Description | +--------+ + + + + | 07/06/ | Abstract | Digestive Health | Clinic, Surgery | | | 2016 | | [place] [address] [address] | | | | | | [address] | | | | | | Mailcode: [place] | | | | | | [facility] Health and | | | | | | [facility] 2 | | | | | | [place], [place] | | | | | | [address] | | | | | | [phone] | | | +--------+ + + + [...] | | | | | | [place], [place] | | | | | | [address] | | | | | | [phone] | | | | | | | | +--------+---------+ + + + documented as of this encounter Visit Diagnoses Not on filedocumented in this encounter"
--- OUTSIDE RECORDS SUMMARY | ~2019-12-02 | XMS | Encounter Summary ---
Demographics + + + | Address | [address] | | | [place] [address] | + + + | Home Phone [...] [place], [place] | | | | | [address] | | + + + + + | Ellie Vang | ECON | Unknown | | + + + + + Care Team Providers + +------+ + | Care Cut And Print Machine Operator Name | Role | Phone [...] | 2015 | | Center at [facility] [address] | [address] | | | | | [facility] | Lesly Gutiérrez [place], | | | | | [facility] and | [place] [address] | | | | | [place] [address] | | | | | | [place], [place] | | | | | | [address] | | | | | | [phone] | | | +--------+ + + + [...] [place] | | | | | | [address] | | | | | | [phone] | | | | | | | | +--------+---------+ + + + documented as of this encounter Visit Diagnoses Not on filedocumented in this encounter"
--- OUTSIDE RECORDS SUMMARY | ~2019-12-02 | XMS | Encounter Summary ---
Demographics + + + | Address | [address] | | | [place] [address] | + + + | Home Phone [...] [place], [place] | | | | | [address] | | + + + + + | Ellie Vang | ECON | Unknown | | + + + + + Care Team Providers + +------+ + | Care Clearance Diver Name | Role | Phone | [...] | | [address] [address] | (Primary Dx) | | | | [address] | [place], [place] | | | | | Physicians [place], | [address] | | | | | 2nd Floor | [phone] | | | | | [place], [place] | | | | | | [address] | | | | | | [phone] | | | +--------+---------+ + + + [...] Dr. Andie Brian Incisional hernia repair 02/2015 [facility]/ Dr. Cantu PHYSICAL EXAMINATION: BP 133/63 | [...] GENERAL SURGERY AT [facility] [address] [facility] Mailcode: [address] [place] [address] documented in this encounter Plan of Treatment +--------+---------+ + + + | Date | Type | Specialty | Care Team | Description | +--------+---------+ + + + | 03/15/ | Office | Cardiology | Randell Franks, | | | 2019 | Visit | | [address] | | | | | | [place], [place] | | | | | | [address] | | | | | | [phone] | | | | | | | | +--------+---------+ + + + documented as of this encounter Visit Diagnoses + + | Diagnosis | + + | Incarcerated incisional hernia - Primary Incisional hernia with obstruction | + + documented in this encounter"
--- OUTSIDE RECORDS SUMMARY | ~2019-12-02 | XMS | Encounter Summary ---
Demographics + + + | Address | [address] | | | [place] [address] | + + + | Home Phone [...] [place], [place] | | | | | [address] | | + + + + + | Ellie Vang | ECON | Unknown | | + + + + + Care Team Providers + +------+ + | Care Academic Assistant Name | Role | Phone | [...] | | | | | bypass | [place], | [facility], | | | | | Nausea and | [place] | 10th Floor | | | | | vomiting, | [address] | [place], [place] | | | | | intractabili | Phone: | [address] | | | | | ty of | | Phone: | | | | | vomiting not | Fax: | [phone] | | | | | specified, | [phone] | Fax: | | | | | unspecified | | [phone] | | | | | vomiting | [...] | | | | | bypass | [place], | Mailcode: | | | | | Nausea and | [place] | [facility] | | | | | vomiting, | [address] | for Health | | | | | intractabili | Phone: | and Healing, | | | | | ty of | [phone] | Building 1, | | | | | vomiting not | Fax: | 5th Floor | | | | | specified, | [phone] | [place], [place] | | | | | unspecified | | [address] | | | | | vomiting | | Phone: | | | | | type | | [phone] | | | | | Diarrhea, | [...] Closed | | Gastroenterol | Diagnoses | [facility], | Gas Endo | | | | ogy | History of | Keren W, | [address]2 [address] | | | | | Nilesh-en-Y | AGACNP [address] | | | | | gastric | [address] | Mailcode: | | | | | bypass | [place], | [address] | | | | | Nausea and | [place] | for Health | | | | | vomiting, | [address] | and Healing, | | | | | intractabili | Phone: | Building 2 | | | | | ty of | | [place], [place] | | | | | vomiting not | Fax: | [address] | | | | | specified, | [phone] | Phone: | | | | | unspecified | | [phone] | | | | | vomiting | | Fax: | | | | | type | | [phone] | | | | | Diarrhea, | [...] | B[facility] Surg | | | with UPTWIST SPINNER | | hypertension | [address] | [address] | | | | | Right | [address] | [address] | | | | | heart | [facility] [place] | Mailcode: | | | | | failure | [address] | [place] for | | | | | ([facility]) Type | Phone: | Health and | | | | | 2 diabetes | [phone] | Healing, | | | | | mellitus | Fax: | Building 2 | | | | | without | [phone] | [place], [place] | | | | | complication | | [address] | | | | | , with | | Phone: | | | | | long-term | | | | | | | current use | | Fax: | | | | | of insulin | | [phone] | | | | | ([facility]) | | | | [...] | | [address] | Ave [place], [place] | (Primary Dx); Nausea | | | | Mailcode: Center | [address] | and vomiting, | | | | for Health and | | intractability of | | | | Healing, Building 2 | | vomiting not | | | | [place], [place] | | specified, | | | | [address] | | unspecified vomiting | | | | [phone] | | type; Diarrhea, | | | [...] getting fluids at a local clinic in [place] -I will contact you if further testing is indicated -follow up with once of our surgeons once testing is complete -get some protein de la o--isopure or premier protein de la o. documented in this encounter Progress Notes Melissa Garay RN - 03/01/2019 1:50 PM PDTSpoke with patient's PCP office [phone] and notified them that Infusion unit at [facility] (fax [phone]) requires a provider with privileges there to sign the IV infusion orders. Since Dr. Cardenas is out on maternity leave, SOFI Ulrich will check with provider covering. Infusion order and chart not e faxed to PCP at [phone]. Patient notified. harli Zayas - 03/01/2019 1:50 [...] vagina Allergic rhinitis Anemia Anxiety Bipolar disorder ([facility]) Chronic wound infection of [...] History Narrative Updated 11/09/15 She lives in [place] with her mother and her sister (also her caregiver) lives in an apa rtment/duplex below. She has 2 grandchildren (age 4 and 7) who live with her daughter and son-in-law Her boyfriend lives in [place] HFpEF, DM2, HTN, Sleep Apnea (unable to [...] program here and refer her to our improvement specialist who also has expertise in physical [...] buccal film, , Disp: , Rfl: CALCIUM CRB&TYL-L7-SJM29-GENIS ORAL, Take 2 tablets by mouth two [...] oral tablet, Take 1 tablet by mo the [facility] once daily., Disp: 90 tablet, Rfl: 1 [...] be administered closer to her home in [place]. LR 1-2 L 3 times weekly, until [...] to plan and will call and/or send [employer] message if any issues. Start time 1422, end time 1455. I spent a total of 33 minutes face to face with this patie nt. Over 50% of visit was in counseling. ALBINA Perrin Bariatric Surgery Nurse Practitioner [facility] | [address] | [place], [place] | [address] | documented in th is encounter Plan [...] [place] | | | | | | [address] | | | | | | [phone] | | | | | | | [...] | | e | 2:41 PM | Nliesh-en-Y gastric | procedure are in the | [...] report as now presented. Final signature: Mae iFerro MD | | | 03/08/2019 3:32 PM [...] [facility] | [address] | [place] [address] | | | SERVICES, CORE | PARK [...] B: | | | | | | listedplacesuplab.com/CSPerformed | | | | | | by [facility],[address] | | | | | | [place] | | | | | | [address] | | | | | | [phone]. | | | | | | Ismael [...] [facility] | [address] | [place], [place] | | | UNIV PTH - INTFC | | [address] | | + + + + + [...] | | SERUM | Natalia Parson [facility] | | PTH - INTFC | | | | [address] | | | | | | [phone].[email or web address]. | | | | | | comIsmael [...] B: | | | | | | testhublab.[facility]/CS | | | | + + + + + + + + | Specimen | + + | Blood - Blood | | (substance) | + + + + + + + | Performing | Address | City/State/Zipcode | Phone Number | | Organization | | | | + + + + + | [facility] | [address] | [place], [place] | | | UNIV PTH - INTFC | | [address] | | + + + + + [...] [facility] | [address] | [place] [address] | | | CLAIRE, LYDIA | PARK [...] [facility] | [address] | [place] [address] | | | LYDIA RANGEL | CLARENCE [...] | | | | | determined by [facility] | | | | | | Laboratories. See | | | | | | Compliance Statement B: | | | | | | [employer]/CSPerformed | | | | | | by [employer],[address] | | | | | | Natalia Parson, [facility] | | | | | | [address] | | | | | | [phone]. | | | | | | com, [...] [facility] | [address] | [place], [place] | | | UNIV PTH - INTFC | | [address] | | + + + + + [...] INTFC | | | | determined by [facility] | | | | | | [employer]. See | | | | | | Compliance Statement B: | | | | | | [employer]/CSPerformed | | | | | | by [employer],[address] | | | | | | [place], [place] | | | | | | [address] | | | | | | [phone].[employer] Mobile. | | | | | | [facility] instituteIsmael MD, | | | | | | [...] [facility] | [address] | [place], [place] | | | UNIV PTH - INTFC | | [address] | | + + + + + [...] [facility] | [address] | [place] [address] | | | SERVICES, CORE | CLARENCE [...] | | | determined by [facility] | | | | | | Laboratories. See | | | | | | Compliance Statement B: | | | | | | [employer]/CSPerformed | | | | | | by [employer],[address] | | | | | | [facility] | | | | | | [address] | | | | | | [phone].[employer] Mobile. | | | | | | com, [...] [facility] | [address] | [place], [place] | | | UNIV PTH - INTFC | | [address] | | + + + + + [...] LABORATORY | [address] | [place] [address] | | | SERVICES, CORE | CLARENCE [...] HOSPITAL LABORATORY | [address] | [place] [address] | | | SERVICES, CORE | PARK [...] | + + + + + | [facility] | [address] | [place] [address] | | | SERVICES, SPECIAL | PARK [...] [facility] | [address] | [place] [address] | | | LYDIA RANGEL | CLARENCE [...] | | | | | determined by [facility] | | | | | | Laboratories. See | | | | | | Compliance Statement B: | | | | | | [employer]/CSPerformed | | | | | | by [employer],[address] | | | | | | Natalia Parson [facility] | | | | | | [address] | | | | | | [phone].[employer] Mobile. | | | | | | com, [...] [facility] | [address] | [place], [place] | | | UNIV PTH - INTFC | | [address] | | + + + + + [...] | | | LABORATORY | | | [facility] | | | SERVICES, | | | [...] MDRD equation recommended by the National | INSU | | Kidney Disease Education Program. Estimated [...] [facility] | [address] | [place] [address] | | | SERVICES, CORE | PARK [...]
--- OUTSIDE RECORDS SUMMARY | ~2019-12-02 | XMS | Encounter Summary ---
Demographics + + + | Address | [address] | | | [place] [address] | + + + | Home Phone [...] + | Katalina Padilla | ECON | [address] | | | | | [place], [place] | | | | | [address] | | + + + + + | Ellie Vang | ECON | Unknown | | + + + + + Care Team Providers + +------+ + | Care Cane Splicer Name | Role | Phone | + [...] evaluation | | 2020 | cheduled | [facility] | | | | | | [facility] | | | | | | [address] | | | | | | Mail Code: OC8PM | | | | | | [facility] | | | | | | and Healing, | | | | | | Building [address] | | | | | | [place], [place] | | | | | | [address] | | | | | | [phone] | | | +--------+ + + + [...] | | | , POLINA; Endotracheal | TAX ACCOUNTING MANAGER | TAX ACCOUNTING MANAGER | | | Tube; 7.5; Oral; Cuffed; [...] PM PST PREOPERATIVE INSTRUCTIONS Surgery check-in location: [facility] Surgery Check in Time: you will receive a call 1-3 business days before your surgery confi rming your exact arrival/check-in time for your surgery day. We know that planning for surg eileen can be stressful and involve a lot of family/friend/transportation coordination as well as hotel arrangements. The Preoperative [facility] does not have access to check in [facility], and we encourage you to contact your [...] ACID (VITAMIN C) 500 MG TABLET CALCIUM CRB&NUR-I9-BEN40-GENIS ORAL CYANOCOBALAMIN (VIT B-12) 1,000 MCG TABLET [...] ch as Uber/Lyft), or public transportation. An Uber/Lyft/sprinkler truck driver does not count as the [...] you and look after you on the quorum healtht night after you have undergone regional blocks [...] it is after office hours, call the [facility] vat operator at [phone] and ask them to page him or h er. documented in this encounter Plan of Treatment +--------+---------+ + + + | Date | Type | Specialty | Care Team | Description | +--------+---------+ + + + | 03/15/ | Office | Cardiology | Randell Franks, | | | 2019 | Visit | | MD [address] | | | | | | [place] | | | | | | [address] | | | | | | [phone] | | | | | | | | +--------+---------+ + + + documented as of this encounter Visit Diagnoses Not on filedocumented in this encounter
--- OUTSIDE RECORDS SUMMARY | ~2019-12-02 | XMS | Encounter Summary ---
Demographics + + + | Address | [address] | | | [place] [address] | + + + | Home Phone [...] [place], [place] | | | | | [address] | | + + + + + | Ellie Vang | ECON | Unknown | | + + + + + Care Team Providers + +------+ + | Care Public Address Servicer Name | Role | Phone | [...] Center | | | | | | [place], [place] | | | | | | [address] | | | | | | [phone] | | | +--------+ + + + [...] [address] | | | | | | [place], [place] | | | | | | [address] | | | | | | [phone] | | | | | | | [...] | | | | | [place], [place] | | | | | | [address] | | | | | | | [...] | | | | artery. A 5.5 Korean | | | | | | Ozzy [...] + +---------+ + + | [facility] | | | | | RADIOLOGY | | | | + +---------+ + + documented in this encounter Visit Diagnoses Not on filedocumented in this encounter
--- OUTSIDE RECORDS SUMMARY | ~2019-12-02 | XMS | Encounter Summary ---
Demographics + + + | Address | [address] | | | [place] [address] | + + + | Home Phone [...] + | Katalina Padilla | ECON | [address] | | | | | [place], [place] | | | | | [address] | | + + + + + | Ellie Vang | ECON | Unknown | | + + + + + Care Team Providers + +------+ + | Care English Adjunct Faculty Name | Role | Phone | [...] at [facility] [address] | DOOR TRIMMER [address] | | | | | [address] | [facility] [address] | | | | | Mailcode: Center | [place], [place] | | | | | [facility] and | [address] | | | | | [facility] 2 | [phone] | | | | | [place], [place] | | | | | | [address] | | | | | | [phone] | | | +--------+ + + + [...] [address] | | | | | | [place], [place] | | | | | | [address] | | | | | | [phone] | | | | | | | | +--------+---------+ + + + documented as of this encounter Visit Diagnoses Not on filedocumented in this encounter"
--- OUTSIDE RECORDS SUMMARY | ~2019-12-02 | XMS | Encounter Summary ---
Demographics + + + | Address | [address] | | | [place] [address] | + + + | Home Phone [...] [place], [place] | | | | | [address] | | + + + + + | Ellie Vang | ECON | Unknown | | + + + + + Care Team Providers + +------+ + | Care Medical Data Entry Clerk Name | Role | Phone | [...] [facility] [address] | MD [address] | | | | | [address] | [facility] | | | | | Mailcode: Center | [place], [place] | | | | | for Health and | [address] | | | | | [facility] 2 | [phone] | | | | | [place], [place] | | | | | | [address] | | | | | | [phone] | | | +--------+ + + + [...] [place] | | | | | | [address] | | | | | | [phone] | | | | | | | | +--------+---------+ + + + documented as of this encounter Visit Diagnoses Not on filedocumented in this encounter"
--- OUTSIDE RECORDS SUMMARY | ~2019-12-02 | XMS | Encounter Summary ---
Demographics + + + | Address | [address] | | | [place] [address] | + + + | Home Phone [...] [place], [place] | | | | | [address] | | + + + + + | Ellie Vang | ECON | Unknown | | + + + + + Care Team Providers + +------+ + | Care Wastewater Technician Name | Role | Phone | [...] [address] Mailcode: | [place], [place] | | | | | [facility] | [address] | | | | | Health and Healing, | [phone] | | | | | [address] | | | | | | Floor [facility] [place] | | | | | | [address] | | | | | | [phone] | | | +--------+ + + + [...] | | 0 | | | | CRB&MIA-M3-CLC78-GEN | mouth two times | | | [...] [address] | | | | | | [place], [place] | | | | | | [address] | | | | | | [phone] | | | | | | | [...]
--- OUTSIDE RECORDS SUMMARY | ~2019-12-02 | XMS | Encounter Summary ---
Demographics + + + | Address | [address] | | | [place] [address] | + + + | Home Phone [...] [place], [place] | | | | | [address] | | + + + + + | Ellie Vang | ECON | Unknown | | + + + + + Care Team Providers + +------+ + | Care Volleyball Assistant Coach Name | Role | Phone | [...] Visit | Medicine Clinic at | J, CARD PAINTER | (Primary Dx); | | | | [facility] | | Dysphagia, | | | | [address] | | unspecified type; | | | | Mail Code: OC8PM | | Hypertension, | | | | Center [facility] | | unspecified type; | | | | and Healing, | | Hyperlipidemia, | | | | Building [address] | | unspecified | | | | [place], [place] | | hyperlipidemia type; | | | | [address] | | Diastolic | | | | [phone] | | congestive heart | | | [...] | | Endotracheal Tube; 7; Oral; | MANAGER EMPLOYMENT | MANAGER EMPLOYMENT | | | Cuffed; 06/23/18; 1542 | [...] encounter Patient Instructions Patient Instructions Tiara Mckeon, CARD PAINTER - 06/16/2018 3:15 PM [facility] [...] your procedure. Surgery check-in location: Admitting - [facility] Surgery Check in Time: The [...] is after office hours, call the [facility] discharging machine operator at [phone] and ask them to page him or [...] weight loss and diuretic tx, follows with women's lacrosse coach Hypothyroidism stabilized on hormone replacement Type 2 [...] renal failure no electrolyte abnormalities no dialysis Urology/Professional Organizer: Urologic Conditions: nephrolithiasis Endo: Diabetes: type 2 [...] sublingual Place under tongue once daily. CALCIUM CRB&JDE-B1-WJL08-GENIS ORAL Take 2 tablets by mouth two [...] Brian Incisional hernia repair 03/01/2015 [facility]/ Dr. Cantu. Primary fascial closure and scar excision Lap gastric byp, and nilesh-en-y gastroenterostomy w/ nilesh limb 150 cm or less 8 [facility] Family history reviewed / updated Family [...] weight loss and diuretic tx, follows with women's lacrosse coach. Appears comp ensated today. Hypothyroidism stabilized on hormone replacement. Take on DOS as usual Type 2 diabetes, well controlled with A1c 6.1 Thank you for the opportunity to contribute to this patient's care. HILDA Lagos [facility] 4TH FLOOR [address] [place] [address] I advised the patient [...] [address] | | | | | | [place], [place] | | | | | | [address] | | | | | | [phone] | | | | | | | [...]
--- OUTSIDE RECORDS SUMMARY | ~2019-12-02 | XMS | Encounter Summary ---
Demographics + + + | Address | [address] | | | [place] [address] | + + + | Home Phone [...] [place], [place] | | | | | [address] | | + + + + + | Ellie Vang | ECON | Unknown | | + + + + + Care Team Providers + +------+ + | Care Steel Pickler Name | Role | Phone | + [...] | | | | | | | [address] | | | | | | [address] | | | | | | | Physicians | | | | | | | Pavilion, 2nd | | | | | | | Floor | | | | | | | [place], [place] | | | | | | | [address] | | | | | | | Phone: | | | | | | | [phone] | | | | | | | Fax: | | | | | | | [phone] | +--------+--------+ + + + + Encounter [...] | | | [facility] [address] [facility] [address] | or gangrene (Primary | | | | [address] | [place], [place] | Dx) | | | | Physicians [place], | [address] | | | | | 2nd Floor | [phone] | | | | | [facility] [place] | | | | | | [address] | | | | | | [phone] | | | +--------+---------+ + + + [...] 500 mg by mouth once daily. CALCIUM CRB&WFB-S7-ARJ25-GENIS ORAL Take 1 tablet by mouth two [...] Rocha MD MPH FACS [facility] laborer wharf Trauma, Critical Care & Acute Care Surgery [facility] [place] [phone] documented in thi s encounter Plan of Treatment +--------+---------+ + + + | Date | Type | Specialty | Care Team | Description | +--------+---------+ + + + | 03/15/ | Office | Cardiology | Randell Franks, | | | 2019 | Visit | | [address] | | | | | | [place], [place] | | | | | | [address] | | | | | | [phone] | | | | | | | | +--------+---------+ + + + documented as of this encounter Visit Diagnoses + + | Diagnosis | + + | Ventral hernia without obstruction or gangrene - Primary Ventral hernia, unspecified, | | without mention of obstruction or gangrene | + + documented in this encounter"
--- OUTSIDE RECORDS SUMMARY | ~2019-12-02 | XMS | Encounter Summary ---
Demographics + + + | Address | [address] | | | [place] [address] | + + + | Home Phone [...] [place], [place] | | | | | [address] | | + + + + + | Ellie Vang | ECON | Unknown | | + + + + + Care Team Providers + +------+ + | Care De Icer Kit Assembler Name | Role | Phone | + +------+ + | Fadi Goodrich DO | PCP | | + +------+ + Encounter Details +--------+ + + + + | Date | Type | Department | Care Team | Description | +--------+ + + + + | 11/04/ | Telephone | [facility] | Leslie Mistry, | | | 2017 | | [address] | PhD [address] [facility] | | | | | Mailcode: CH15P | Ryan Grace | | | | | [facility] | [place], [place] | | | | | and [address], | [address] | | | | | | [phone] | | | | | Floor [place], [place] | | | | | | [address] | | | | | | [phone] | | | +--------+ + + + [...] [address] | | | | | | [place], [place] | | | | | | [address] | | | | | | [phone] | | | | | | | | +--------+---------+ + + + documented as of this encounter Visit Diagnoses Not on filedocumented in this encounter"
--- OUTSIDE RECORDS SUMMARY | ~2019-12-02 | XMS | Encounter Summary ---
[...] [place], [place] | | | | | [address] | | + + + + + | Ellie Vang | ECON | Unknown | | + + + + + Care Team Providers + +------+ + | Care Auto Tune Up Mechanic Name | Role | Phone | [...] | | [address] | [place], [place] | | | | | Mailcode: [place] | [address] | | | | | for Health and | [phone] | | | | | [facility] [address] | | | | | | [place], [place] | | | | | | [address] | | | | | | [phone] | | | +--------+ + + + [...] [address]annery | | | | | | [place], [place] | | | | | | [address] | | | | | | [phone] | | | | | | | | +--------+---------+ + + + documented as of this encounter Visit Diagnoses Not on filedocumented in this encounter"
--- OUTSIDE RECORDS SUMMARY | ~2019-12-02 | XMS | Encounter Summary ---
Demographics + + + | Address | [address] | | | [place] [address] | + + + | Home Phone [...] [place], [place] | | | | | [address] | | + + + + + | Ellie Vang | ECON | Unknown | | + + + + + Care Team Providers + +------+ + | Care Assistant Professor In Family Studies Name | Role | Phone | + [...] 2016 | | Preventive at [facility] | MD [address] | ([place]) | | | | [address] | [place], [place] | | | | | Mailcode: Mihaela | [address] | | | | | [facility] | [phone] | | | | | and [address], | | | | | | [address] | | | | | | [place], [place] | | | | | | [address] | | | | | | [phone] | | | +--------+ + + + [...] | | | | | | [place], [place] | | | | | | [address] | | | | | | [phone] | | | | | | | | +--------+---------+ + + + documented as of this encounter Visit Diagnoses Not on filedocumented in this encounter"
--- OUTSIDE RECORDS SUMMARY | ~2019-12-02 | XMS | Encounter Summary ---
Demographics + + + | Address | [address] | | | [place] [address] | + + + | Home Phone [...] Team Providers + +------+ + | Care Transit Driver Name | Role | Phone | [...] [address]ann[address] | | | | | | [place], [place] | | | | | | [address] | | | | | | [phone] | | | | | | | | +--------+---------+ + + + documented as of this encounter Visit Diagnoses Not on filedocumented in this encounter"
--- OUTSIDE RECORDS SUMMARY | ~2019-12-02 | XMS | Clinical Summary ---
Demographics + + + | Address | [address] | | | [place] [address] | + + + | Home Phone [...] | Organization | [facility] | | [...] Team Providers + +------+ + | Care Sweep Molder Name | Role | Phone | [...] 0 | | | Activ | | Kutovqw-Vhinnnbsy-Je | mouth 2 times daily. | | [...] | + + + +---------+------+------+-------+ | thyroid (OUTSIDE SALESPERSON | OUTSIDE SALESPERSON Thyroid 30 mg | | 0 | [...] 0 | | | Activ | | (MAXALT-BAR WELDER) 5 mg | as needed for | [...] qd x | | 30 October 2015 [facility] Assessment & Plan: Hgb appears [...] obesityPickwickian syndrome | | Recent admission to [facility] for 100lb | | weight gain- DC on diuresis on 03/06/2016- she feel improvedShe | | was on Metolazone and Torsemide prior to hospitalization- both | | have better bioavailability than lasix in gut edema but she | | retained 100lbs - how ever she is currently on only Torsemide | | 100mg Q12hrs started in [place] and her weight been stable | | sinceShyesenia has no other complaints.She is pending to see | | NephrologistEcho 02/16/2016([facility])- Normal LV systolic | | function, [...] + + + | Overview: Problem List Nuclear Medical Technologist Utility | + + + + + [...] + + + + | Overview: Overview: [facility] Assessment & Plan: Patient with [...] responded well to diuresis at | | [facility] (lost 60lb, down to 410), and then reaccumulated water | | weight on Torsemide and metolazone, which should be less effected | | by gut wall edema than Lasix. She has an appt with nephrology at | | [facility] on 03/17. Weight now 200kg (440lb, [...] Defer Metolazone to her | | outpatient Under Cutter or Bpm Developer- Will continue KCL | | supplementation at 60meq QID despite the spironolactone as she | | remains on the low side- Encourage daily weights at home with a | | log; she should contact her PCP, Under Cutter or Bpm Developer for | | a 10lb weight gain [...] morbid obesity, she is enrolled in the [facility] bariatric program. | | She has lost [...] tolerating well in the | | hospital-- [facility] arranging for BiPAP upon d/c home to [facility] | | areaOverview: Cannot tolerate CPAP | [...] | [facility] [place] [place] [address] | | | | | | [phone] | | | | | | | [...] | [employer] | MODA | [id number] | 10/28/19 | [phone] | | Medica | | MEDICAID HMO | HEALTH | | 19-Pre | 1 | | id | | | MDCD | | sent | | | | | | [place] | | | | | | + +--------+ +--------+ +---------+--------+ | [employer] | MODA | [id number] | | [phone] | | Medica | | MEDICAID HMO [...] [place] | | | 3 (Home) | [address] | + +--------+ +--------+ + + | Elzbieta Cristina | Person | Self | [birth year] | [address] | | | al/Fam | | 1974 | [phone] | [address], [place] | | | mireya | | | 3 (Home) | [address] | + +--------+ +--------+ + + Advance Directives + + + + + | Type | Date Recorded | Patient | Explanation | | | | Netezza Developer | | + + + + + | Power of | | | | | Reed Maker | | | | + + + + + | Advance | | | | | Directive | | | | + + + + +
--- OUTSIDE RECORDS SUMMARY | ~2019-12-02 | XMS | Encounter Summary ---
Demographics + + + | Address | [address] | | | [place] [address] | + + + | Home Phone [...] [place], [place] | | | | | [address] | | + + + + + | Ellie Vang | ECON | Unknown | | + + + + + Care Team Providers + +------+ + | Care Strategy Consultant Name | Role | Phone | [...] | | [address] | [facility] [place] | | | | | Mailcode: CH9A | [address] | | | | | [facility] | [phone] | | | | | and Healing, | | | | | | [address] | | | | | | [facility] [place] | | | | | | [address] | | | | | | [phone] | | | +--------+ + + + [...] | | 2019 | Visit | | [address] | | | | | | [place], [place] | | | | | | [address] | | | | | | [phone] | | | | | | | | +--------+---------+ + + + documented as of this encounter Visit Diagnoses Not on filedocumented in this encounter"
--- OUTSIDE RECORDS SUMMARY | ~2019-12-02 | XMS | Encounter Summary ---
Demographics + + + | Address | [address] | | | [place] [address] | + + + | Home Phone [...] [place], [place] | | | | | [address] | | + + + + + | Ellie Vang | ECON | Unknown | | + + + + + Care Team Providers + +------+ + | Care Maintenance Chief Name | Role | Phone [...] | Pain | Diagnoses | Analisa Georges Car Hostler Psych | | | | Management | Morbid | DANIELLE BrunerP | [address] [address] | | | | | obesity with | [address] | | | | | BMI of [address] | Mailcode: | | | | | and over, | [place], [place] | [facility] Center | | | | | adult (HCC) | [address] | for Health | | | | | Procedures | Phone: | and Healing, | | | | | CONSULT TO | [phone] | Building 1, | | | | | PAIN | Fax: | 15th Floor | | | | | MANAGEMENT | [phone] | [place], [place] | | | | | [place] | | [address] | | | | | PSYCHIATRIC | | Phone: | | | | | DIAGNOSTIC | | [phone] | | | | | EVAL, NO MED | | Fax: | | | | | [facility] [place] | | [phone] | | | | | PSYCH TSTNG [...] | B[facility] Surg | | | with EDUCATION AND OUTREACH COORDINATOR | | hypertension | [address] | [address] | | | | | Right | [address] | [address] | | | | | heart | [place], [place] | Mailcode: | | | | | failure | [address] | Center for | | | | | ([facility]) Type | Phone: | Health and | | | | | 2 diabetes | [phone] | Healing, | | | | | mellitus | Fax: | Building 2 | | | | | without | [phone] | [place], [place] | | | | | complication | | [address] | | | | | , with | | Phone: | | | | | long-term | | [phone] | | | | | current use | | Fax: | | | | | of insulin | | [phone] | | | | | ([facility]) | | | | | | | [...] | | [address] | Ave [place], [place] | adult ([facility]) (Primary | | | | Mailcode: Center | [address] | Dx); Chronic | | | | for Health and | | diastolic heart | | | | Healing, Building 2 | | failure ([facility]); | | | | [place], [place] | | Immobility; Severe | | | | [address] | | muscle | | | | [...] retinopathy | | | | | | ([facility]); | | | | | | Hyperlipidemia, [...] to your private appointme nt with the mold setter. These classes will be scheduled apporoximately 1 month apart to allow time for you to put the teaching into action. Please call [phone] + Labs needed: Pre op: drug screen [...] are done + EKG: Please Have your spouting installer do the eval and send it to us + Pre-op Psychological Evaluation: Your referral is at [facility], The Pain Management Office will call [...] be safely completed. + Sign up for BioTheryX so that we can communicate easily back and forth Once the above list is completed and copies have been received by our office, we will submi t for insurance authorization then schedule with the surgeon. KAIN De Dios DNP, MACHINE TOOL DRESSER Nurse Practitioner for Bariatric Surgery [facility] | [address] | [place], [place] | [address] | documented in this encounter Progress Notes Shereen Georges ACNP - 02/02/2017 9:00 AM PDTFormatting of this note might be different f rom the original. BARIATRIC INITIAL VISIT Provider: Shereen Pinto DNP, KAIN, MACHINE TOOL DRESSER Referring Provider: Fadi Goodrich DO Reason for [...] t loss. Consults: Cardiology: Dr. Edson [facility] Transmission Calibration Engineer: Nickie : [facility] Paula But comes to magen Justice Professor at [facility]: Dr. Zhong for weight loss medication Catholic or cultural reason you would refuse blood [...] once daily., Disp : , Rfl: CALCIUM [id number]-GENIS ORAL, Take 2 tablets by mouth two [...] rhinitis Anemia Anxiety Bipolar disorder ([facility]) Chronic wound infection of abdomen from 2010 Cough Depression Diverticulitis of colon Dizziness Glaucoma Heart burn Hemorrhoids Hernia of abdominal wall Incisional hernia, incarcerated 2012 Insomnia Irregular periods Kidney stone Leaking of urine Leg sore Lymphedema Morbid obesity with body mass index of 70 and over in adult ([facility]) Myalgia and myositis Nausea Neck pain Numbness Osteoarthritis of knee Palpitations Pneumonia Shortness of breath Staphylococcal infection Stroke ([facility]) TIA (transient ischemic attack) due to Bromocriptine Tinea corporis UTI (urinary tract infection) Past Surgical History Procedure Laterality Date Tonsillectomy and adenoidectomy Appendectomy, open 2010 Umbilical hernia repair 2010 Treatment of ankle fracture with screws remaining Incision and drainage of wound abscess x2 midline transverse wound s/p open appendectomy 2010 Ventral hernia repair 10/2012 Dr. Andie Brian Incisional hernia repair 03/01/2015 [facility]/ Dr. Cantu. Primary fascial [...] Narrative Updated 11/09/15 She lives in [place] with her mother and her sister (also her caregiver) lives in an [facility]. She has 2 grandchildren (age 4 and 7) who live with her daughter and son-in-law Her boyfriend lives in [place] Family History Problem Relation Heart Attack Father [...] extre mity edema, hypertension, hyperlipidemia. Denies CHF, CA, ischemic heart disease, or pulmon nikki hypertension. [...] years without success. [facility] to control [...] management, and was referred as well to cd reactor operator head. Plan: Request that her spouting installer clear her, and make recommendations 3. Mammogram: [...] to your private appointme nt with the mold setter. These classes will be scheduled apporoximately 1 month apart to allow time for you to put the teaching into action. Please call [phone] + Labs needed: lipids, CBC, CMP, TSH, [...] are done + EKG: Please Have your spouting installer do the eval and send it to us + Pre-op Psychological Evaluation: Your referral is at [facility], The Pain Management Office will call [...] be safely completed. + Sign up for BioTheryX so that we can communicate easily back and forth Once the above list is completed and copies have been received by our office, we will submi t for insurance authorization then schedule with the surgeon. KAIN De Dios DNP, MACHINE TOOL DRESSER Nurse Practitioner for Bariatric Surgery [facility] | [address] | [place] | [address] | documented in this encounter Plan of Treatment +--------+---------+ + + + | Date | Type | Specialty | Care Team | Description | +--------+---------+ + + + | 03/15/ | Office | Cardiology | Randell Zhong, | | | 2019 | Visit | | MD [address] | | | | | | [place], [place] | | | | | | [address] | | | | | | [phone] | | | | | | | [...]
--- OUTSIDE RECORDS SUMMARY | ~2019-12-02 | XMS | Encounter Summary ---
Demographics + + + | Address | [address] | | | [place] [address] | + + + | Home Phone [...] [place], [place] | | | | | [address] | | + + + + + | Ellie Vang | ECON | Unknown | | + + + + + Care Team Providers + +------+ + | Care Decatizer Name | Role | Phone | + [...] Center at [facility] [address] | ACNP [address] | | | | | [address] | Ave [place], [place] | | | | | Mailcode: Center | [address] | | | | | for Health and | [phone] | | | | | [place] [address] | | | | | | [place], [place] | | | | | | [address] | | | | | | [phone] | | | +--------+ + + + [...] [place] | | | | | | [address] | | | | | | [phone] | | | | | | | | +--------+---------+ + + + documented as of this encounter Visit Diagnoses Not on filedocumented in this encounter"
--- OUTSIDE RECORDS SUMMARY | ~2019-12-02 | XMS | Clinical Summary ---
Demographics + + + | Address | [address] | | | [place] [address] | + + + | Home Phone [...] | [facility] (Historical as of | | | 03-12-19) | + + + | Organization | [facility] (Historical as of | | | 03-12-19) [...] Providers + +------+ + | Care Support Worker Name | Role | Phone [...] | | | Activ | | ([place]) [address] | mouth twice a week. | | [...] | obesity, she is enrolled in the [facility] bariatric program. She has | | lost [...] Torsemide 100mg Q12hrs | | started in [place] and her weight been stable sinceShe has no | | other complaints.She is pending to see NephrologistCiriloo | | 02/16/2016([facility])- Normal LV systolic function, mildly [...] +------+-------+ + | MEDICAID | [place] | [id number] | | | [address] | | | N | | | | [place] | | | [place] | | | | [address] | | | DRY MIXER | | | | | + +--------+ [...] | | | [place] | | | [address] | [address] | + +--------+ +--------+ + +
--- OUTSIDE RECORDS SUMMARY | ~2019-12-02 | XMS | Encounter Summary ---
Demographics + + + | Address | [address] | | | [place] [address] | + + + | Home Phone [...] [place], [place] | | | | | [address] | | + + + + + | Ellie Vang | ECON | Unknown | | + + + + + Care Team Providers + +------+ + | Care Aerologist Name | Role | Phone | + [...] | | [address] | [place], [place] | | | | | Mailcode: 9A | [address] | | | | | [facility] | [phone] | | | | | and [address], | | | | | | Building [address] | | | | | | [place], [place] | | | | | | [address] | | | | | | [phone] | | | +--------+--------+ + + + [...] [address] | | | | | | [place], [place] | | | | | | [address] | | | | | | [phone] | | | | | | | | +--------+---------+ + + + documented as of this encounter Visit Diagnoses Not on filedocumented in this encounter"
--- OUTSIDE RECORDS SUMMARY | ~2019-12-02 | XMS | Encounter Summary ---
Demographics + + + | Address | [address] | | | [place] [address] | + + + | Home Phone [...] [place], [place] | | | | | [address] | | + + + + + | Ellie Vang | ECON | Unknown | | + + + + + Care Team Providers + +------+ + | Care Can Bander Operator Name | Role | Phone | [...] | | Center at [facility] [address] | MD [address] | Review | | | | [address] | [facility] | | | | | Mailcode: Center | [place], [place] | | | | | [facility] and | [address] | | | | | [place] [address] | [phone] | | | | | [place], [place] | | | | | | [address] | | | | | | [phone] | | | +--------+ + + + [...] [address] | | | | | | [place] | | | | | | [address] | | | | | | [phone] | | | | | | | | +--------+---------+ + + + documented as of this encounter Visit Diagnoses Not on filedocumented in this encounter"
--- OUTSIDE RECORDS SUMMARY | ~2019-12-02 | XMS | Encounter Summary ---
Demographics + + + | Address | [address] | | | [place] [address] | + + + | Home Phone [...] [place], [place] | | | | | [address] | | + + + + + | Ellie Vang | ECON | Unknown | | + + + + + Care Team Providers + +------+ + | Care Track Hoe Operator Name | Role | Phone | [...] | | 2 diabetes | JEAN, | [place], [place] | | | | | mellitus | [place] [address] | [address] | | | | | without | Phone: | Phone: | | | | | complication | [phone] | [phone] | | | | | (HCC) | Fax: | Fax: | | | | | Procedures | [phone] | [phone] | | | | | CO EST | | | | | | [...] | 2018 | Visit | Preventive at [facility] | MD [address] | mellitus without | | | | [address] | [place], [place] | complication, with | | | | Mailcode: CH9A | [address] | long-term current | | | | [facility] | [phone] | use of insulin (HCC) | | | | and Healing, | | (Primary Dx); | | | | Building [address] | | Morbid obesity with | | | | [place], [place] | | BMI of 70 and over, | | | | [address] | | adult (HCC) | | | | [phone] | | | +--------+---------+ + + + [...] Priority: 3 Hypoventilation associated with obesity ([facility]) 06/16/2013 Priority: 4 AMARA (obstructive sleep apnea) 04/14/2013 Priority: 4 Overview Note: Cannot tolerate CPAP Severe Morbid obesity ([facility]), BMI 88 11/12/2012 Priority: 4 Overview Note: Lifetime max: 495 lbs Phentermine started Type 2 diabetes mellitus ([facility]) 04/14/2013 Priority: 5 Iron deficiency anemia due to chronic blood loss 11/11/2015 Priority: 6 Overview Note: Ferritin 18 on 10/2015 Hypoalbuminemia (no proteinuria, need to rule out synthetic, nutrition, loss) 6 Priority: 6 Hypothyroidism 08/28/2014 Priority: 8 Morbid obesity with BMI of 70 and over, adult ([facility]) 02/02/2017 Chronic diastolic heart failure (HCC) 02/02/2017 Immobility 02/02/2017 Severe muscle deconditioning 02/02/2017 Personal history of DVT (deep vein thrombosis) 02/02/2017 History of pulmonary embolism 02/02/2017 AMARA treated with BiPAP 02/02/2017 Benign essential HTN 02/02/2017 Diabetes mellitus type 2 without retinopathy ([facility]) 02/02/2017 Hyperlipidemia 02/02/2017 Ventral hernia [...] 11/06/2015 Diabetes mellitus with insulin therapy ([facility]) 12/27/2014 Abdominal pain 02/07/2014 Migraine [...] 1 tablet by mouth once daily CALCIUM CRB&QZO-A9-KIO34-GENIS ORAL Take 2 tablets by mouth two [...] jeart failure is manag ed by her polls or surveys interviewer and she was seen by the bariatric surgery group and is now back [facility] tr [facility] in the upcoming year. [...] is currently being managed well by her Vigoureux Printer with diuretics and main tenance of her [...] management of her heart failure by her Vigoureux Printer 3) Check A1c, lipids 4) Await bariatric [...] | | | | | [place] | | | | | | [address] | | | | | | [phone] | | | | | | | [...] + | [facility] [employer] | [address] | [place], [place] | | | SERVICES, LIPID | [address] | [address] | | + + + + + [...] [facility] | [address] | [place] [address] | | | SERVICES, SPECIAL | CLARENCE [...]
--- OUTSIDE RECORDS SUMMARY | ~2019-12-02 | XMS | Encounter Summary ---
Demographics + + + | Address | [address] | | | [place] [address] | + + + | Home Phone [...] [place], [place] | | | | | [address] | | + + + + + | Ellie Vang | ECON | Unknown | | + + + + + Care Team Providers + +------+ + | Care Die Holder Name | Role | Phone | + [...] | 2018 | Visit | Preventive at [facility] | [address] | mellitus without | | | | [address] | [place], [place] | complication, with | | | | Mailcode: [facility] | [address] | long-term current | | | | [facility] | [phone] | use of insulin ([facility]) | | | | and Healing, | | (Primary Dx); | | | | Building [address] | | Chronic right-sided | | | | [place], [place] | | heart failure (HCC) | | | | [address] | | | | | | [phone] | | | +--------+---------+ + + + [...] management of her heart failure by her Flange Turner 3) Check A1c, lipids 4) Await bariatric surgery in February 2018 5) Continue phentermine 37.5 mg daily 6) Continue wound care, non-pressure ambulation of right foot wound 7) Follow-up 4-6 months In the interim, the patient underwent bariatric surgery and was discharged [facility] the [facility] 03[facility]. Today, the patient reports [...] 06/23 - She is working with the supervisor reclamation in her office - She is taking [...] tongue once daily., Disp: , Rfl: CALCIUM CRB&SOR-T8-CZS46-GENIS ORAL, Take 2 tablets by mouth two [...] 3.19 11/28/2016 Lab Results Component Value Date [id number] 88.6 05/27/2018 Lab Results Component Value Date [...] weight of 320lbs. Plan to work with supervisor reclamation from bariatric surgery, identify etio logy of [...] is currently being managed well by her Flange Turner with diuretics and mainte nance of her [...] Gissell Clements MD Fellow, Cardiovascular Medicine Pager [phone] signed by Gissell Clements MD at 06/04/2018 [...] [address] | | | | | | [place], [place] | | | | | | [address] | | | | | | [phone] | | | | | | | [...]
--- OUTSIDE RECORDS SUMMARY | ~2019-12-02 | XMS | Encounter Summary ---
[...] [place], [place] | | | | | [address] | | + + + + + | Ellie Vang | ECON | Unknown | | + + + + + Care Team Providers + +------+ + | Care Web Marketing Coordinator Name | Role | Phone | + +------+ + | Fadi Goodrich DO | PCP | | + +------+ + Encounter Details +--------+------+ + + + | Date | Type | Department | Care Team | Description | +--------+------+ + + + | 08/28/ | Lab | Laboratory at [facility] | | Type 2 diabetes | | 2015 | | [address] | | mellitus (HCC) | | | | [place], [place] | | | | | | [address] | | | | | | [phone] | | | +--------+------+ + + + [...] Flannery | | | | | | [place], [place] | | | | | | [address] | | | | | | [phone] | | | | | | | [...] + + | [facility] | [address] | [place] [address] | | | SERVICES, CORE | PARK [...] | [facility] | [address] | [place] [address] | | | SERVICES, SPECIAL | PARK [...]
--- OUTSIDE RECORDS SUMMARY | ~2019-12-02 | XMS | Encounter Summary ---
Demographics + + + | Address | [address] | | | [place] [address] | + + + | Home Phone [...] [place], [place] | | | | | [address] | | + + + + + | Ellie Vang | ECON | Unknown | | + + + + + Care Team Providers + +------+ + | Care Gas Reverser Name | Role | Phone | + [...] floor | | | | | | [place], [place] | | | | | | [address] | | | +--------+ + + + [...] | | | | | | [place], [place] | | | | | | [address] | | | | | | [phone] | | | | | | | | +--------+---------+ + + + documented as of this encounter Visit Diagnoses Not on filedocumented in this encounter"
--- OUTSIDE RECORDS SUMMARY | ~2019-12-02 | XMS | Encounter Summary ---
Demographics + + + | Address | [address] | | | [place] [address] | + + + | Home Phone [...] [place], [place] | | | | | [address] | | + + + + + | Ellie Vang | ECON | Unknown | | + + + + + Care Team Providers + +------+ + | Care Tool Crib Manager Name | Role | Phone | + +------+ + | Fadi Goodrich DO | PCP | | + +------+ + Encounter Details +--------+ + + + + | Date | Type | Department | Care Team | Description | +--------+ + + + + | 08/16/ | Abstract | Digestive Health | Kathy Feldman, | | | 2013 | | Center at [facility] [address] | RESEARCH PROGRAM ASSISTANT [address] | | | | | [address] | [facility] [address] | | | | | Mailcode: Center | [place], [place] | | | | | [facility] and | [address] | | | | | [facility] 2 | [phone] | | | | | [place], [place] | | | | | | [address] | | | | | | [phone] | | | +--------+ + + + [...] | | | | | | [place], [place] | | | | | | [address] | | | | | | [phone] | | | | | | | | +--------+---------+ + + + documented as of this encounter Visit Diagnoses Not on filedocumented in this encounter"
--- OUTSIDE RECORDS SUMMARY | ~2019-12-02 | XMS | Encounter Summary ---
Demographics + + + | Address | [address] | | | [place] [address] | + + + | Home Phone [...] + | Katalina Padilla | ECON | [address] | | | | | [place], [place] | | | | | [address] | | + + + + + | Ellie Vang | ECON | Unknown | | + + + + + Care Team Providers + +------+ + | Care Painter Aircraft Name | Role | Phone | + [...] | | | | | | [place], [place] | | | | | | [address] | | | | | | [phone] | | | +--------+ + + + [...] Flannery | | | | | | [place], [place] | | | | | | [address] | | | | | | [phone] | | | | | | | | +--------+---------+ + + + documented as of this encounter Visit Diagnoses Not on filedocumented in this encounter"
--- OUTSIDE RECORDS SUMMARY | ~2019-12-02 | XMS | Encounter Summary ---
Demographics + + + | Address | [address] | | | [place] [address] | + + + | Home Phone [...] [place], [place] | | | | | [address] | | + + + + + | Ellie Vang | ECON | Unknown | | + + + + + Care Team Providers + +------+ + | Care Regular Senior Care Provider Name | Role | Phone [...] CHOLECYSTECOMY WITH | | | | Brock [facility] Moreno | Clarence Bonner [place], | INTRA-OP | | | | Hospital Admitting | [place] [address] | CHOLANGIOGRAM | | | | Desk Located on the | [phone] | | | | | 9th floor | | | | | | [place], [place] | | | | | | [address] | | | +--------+---------+ + + + [...] the resident s note. PRADIP STARR MD [facility] [address] [facility] [place] [address] orrest, Maryam Yu MD - 1:05 PM PDT [facility] DEPARTMENT OF SURGERY EMERGENCY GENERAL SURGERY Division [...] DM who presented to the [facility] ED ([place], [place]) on 02/06/14, with a week hi story of RUQ abdominal pain that radiates to her back. There, she was found to have leukocyt osis and multiple tiny, mobile stones, + sonographic Peterson's sign on abdominal ultrasound, concerning for acute cholecystitis. She was givenIV antibiotics (cipro, flagyl) and pain med s, then transferred to [facility] by [facility] for further care. Ms. Romero endorsed 02/02 [...] up with Trauma Emergency General Surgery at [facility] In 4 weeks. (follow up in 2-4 weeks ) Contact information [address] [facility] Mailcode: L223a [address] [place] [address] Thank you for the opportunity to take care of DLYAN ROMERO during this inpatient stay, it has [...] the resident s note. PRADIP STARR MD [facility] [address]A [address] [place] [address] orrMaryam hill MD - 5:17 AM PDT [facility] DEPARTMENT OF SURGERY EMERGENCY GENERAL SURGERY Division [...] Obese and Incision clean without erythema : Uriz catheter in place Extremities:Warm and well perfused, [...] tolerated MARYAM RHODES MD PGY-1, General Surgery 12494 pager number [facility] A [address] [facility] [address] documented in this encoun ter Plan of Treatment +--------+---------+ + + + | Date | Type | Specialty | Care Team | Description | +--------+---------+ + + + | 03/15/ | Office | Cardiology | Randell Franks, | | | 2019 | Visit | | [address] | | | | | | [place], [place] | | | | | | [address] | | | | | | [phone] | | | | | | | [...] KWAKU | [address] | [place], [place] | | | JUSTINE DAWN OF JAKY | [facility] | [address] | | | TESTS | | | [...] KWAKU | [address] | [place], [place] | | | JUSTINE DAWN OF CARE | [facility] | [address] | | | TESTS | | | [...] (H) | 60 - 99 mg/dL | [facility] - | | | GLUCOSE, | | [...] AMES | [address] | [place], [place] | | | JUSTINE DAWN OF CARE | [facility] | [address] | | | TESTS | | | [...] KWAKU | [address] | [place], [place] | | | JUSTINE DAWN OF JAKY | [address] | [address] | | | TESTS | | | [...] [facility] | [address] | [place] [address] | | | SERVICES, | [address] [...] | + + + + + | [facility] | [address] | [place] [address] | | | SERVICES, | [address] [...] [facility] | [address] | [place], [place] | | | L[place]PE[place] POINT OF CARE | [address] | [address] | | | TESTS | | | [...] [facility] | [address] | [place] [address] | | | SERVICES, CORE | PARK [...] | [facility] | [address] [facility] | [place] [address] | | | SERVICES, CORE | PARK [...] [facility] | [address] | [place] [address] | | | SERVICES, CORE | PARK [...] | + + + + + | [facility] | [address] [facility] | [place] [address] | | | SERVICES, CORE | [address]ARENCE [...] | + + + + + | [employer] | [address] | [place] [address] | | | SERVICES, CORE | PARK [...] [facility] | [address] | [place], [place] | | | JUSTINE DAWN OF CARE | [address] | [address] | | | TESTS | | | [...] pattern. | | | | | | Silk Conditioner | | | | | | sections [...] + + + + | [facility] | [address] | [place] [address] | | | PATHOLOGY | [address] [...]
--- OUTSIDE RECORDS SUMMARY | ~2019-12-02 | XMS | Encounter Summary ---
Demographics + + + | Address | [address] | | | [place] [address] | + + + | Home Phone [...] [place], [place] | | | | | [address] | | + + + + + [...] | | 2019 | | Center at [facility] [address] | MD Jorje [address] | | | | | [address] | [address] | | | | | Mailcode: Center | [place], [place] | | | | | [facility] and | [address] | | | | | [facility] 2 | [phone] | | | | | [place], [place] | | | | | | [address] | | | | | | [phone] | | | +--------+ + + + [...] Flann[address] | | | | | | [place] | | | | | | [address] | | | | | | [phone] | | | | | | | | +--------+---------+ + + + documented as of this encounter Visit Diagnoses Not on filedocumented in this encounter"
--- OUTSIDE RECORDS SUMMARY | ~2019-12-02 | XMS | Encounter Summary ---
Demographics + + + | Address | [address] | | | [place] [address] | + + + | Home Phone [...] [place], [place] | | | | | [address] | | + + + + + | Ellie Vang | ECON | Unknown | | + + + + + Care Team Providers + +------+ + | Care Mining Detail Draftsperson Name | Role | Phone | [...] [place] | | | | | | [address] [address] | [address] | | | | | [address], | Ave | | | | | | [address] | [place], [place] | | | | | | [place], [place] | [address] | | | | | | [address] | Phone: | | | | | | Phone: | [phone] | | | | | | [phone] | Fax: | | | | | | Fax: | [phone] | | | | | | [phone] | | +--------+--------+ + + + + Encounter Details +--------+---------+ + + + | Date | Type | Department | Care Team | Description | +--------+---------+ + + + | 08/29/ | Office | Cardiology | Randell Franks, | HTN (hypertension) | | 2013 | Visit | Preventive at [facility] | MD [address] | (Primary Dx); Type 2 | | | | [address] | [place], [place]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 | | | | Mailcode: [facility] | [address] | ([facility]); Morbid | | | | [facility] | [phone] | obesity (HCC) | | | | and Healing, | | | | | | Building [address] | | | | | | [place], [place] | | | | | | [address] | | | | | | [phone] | | | +--------+---------+ + + + [...] [address]ann[address] | | | | | | [place] | | | | | | [address] | | | | | | [phone] | | | | | | | [...]
--- OUTSIDE RECORDS SUMMARY | ~2019-12-02 | XMS | Encounter Summary ---
Demographics + + + | Address | [address] | | | [place] [address] | + + + | Home Phone [...] [place], [place] | | | | | [address] | | + + + + + | Ellie Vang | ECON | Unknown | | + + + + + Care Team Providers + +------+ + | Care Psychologist Developmental Name | Role | Phone | + [...] 2019 | | Preventive at [facility] | MD [address] | (PHENTERMINE 37.5 mg | | | | [address] | [place], [place] | ) | | | | Mailcode: [facility] | [address] | | | | | [facility] | [phone] | | | | | and [address], | | | | | | [address] | | | | | | [place], [place] | | | | | | [address] | | | | | | [phone] | | | +--------+--------+ + + + [...] [place] | | | | | | [address] | | | | | | [phone] | | | | | | | | +--------+---------+ + + + documented as of this encounter Visit Diagnoses Not on filedocumented in this encounter"
--- OUTSIDE RECORDS SUMMARY | ~2019-12-02 | XMS | Encounter Summary ---
Demographics + + + | Address | [address] | | | [place] [address] | + + + | Home Phone [...] [place], [place] | | | | | [address] | | + + + + + | Ellie Vang | ECON | Unknown | | + + + + + Care Team Providers + +------+ + | Care Supervisor General Name | Role | Phone | [...] ENDOSCOPY | | 2017 | | [facility] | [address] | | | | | Rd [facility] | [place], [place] | | | | | Hospital Admitting | [address] | | | | | Desk Located on the | [phone] | | | | | 9th floor | | | | | | [place], [place] | | | | | | [address] | | | +--------+---------+ + + + [...] the endoscopy department toll free ext. [phone] or After business hours or on weekends and holiday Hospital Iron Launder Operator toll free [phone]. [phone] and have the GI doctor continuous towel roller paged. The provider who performed your procedure [...] | | 0 | | | | CRB&HAE-S4-AFH34-GEN | mouth two times | | | [...] 2:35 PM PST PRE PROCEDURE NOTE: MR# [id number] Subjective: Elzbieta Cristina is a 43 y.o. [...] [address] | | | | | | [place], [place] | | | | | | [address] | | | | | | [phone] | | | | | | | [...] -----+ | MRN: | [facility] | | [id number] Date: 06/23/2018Patient Name: Elzbieta Curtis #: | MORGAN Y | | [id number] of : 1975CSN: [id number] Type: | | | AmbulatoryRoom: SORProcedure: Upper GI | | | endoscopyIndications: Nausea with vomiting, Status post | | | Hfdl-ef-YZwrlnkxsl: KALEB WILCOX MD (Doctor), JOSE | | | NASIMA Clinical Informatics Specialist | | | (Clinical Informatics Specialist)Referring MD: DANIELLE GARCÍAPRequestdonya | | | [...] | | | The Olympus GIF-[id number] Gastroscope #[id number] was | | | introduced through the [...] endoscope without resistance. The | | | zphkm-ee-ddgedlu limb was characterized by healthy appearing | [...] Initiated On: | | | 06/23/2018 3:58 [facility] Letter to: FADI MICHAEL DO [...] [facility] | | | | | | UJSTINE DAWN | | [...] [facility] | [address] | [place], [place] | | | L[place] POINT OF CARE | [address] | [address] | | | TESTS | | | [...] | | | | | | Until [facility] 06/24/18 at 0027, | | | [...]
--- OUTSIDE RECORDS SUMMARY | ~2019-12-02 | XMS | Encounter Summary ---
Demographics + + + | Address | [address] | | | [place] [address] | + + + | Home Phone [...] [place], [place] | | | | | [address] | | + + + + + | Ellie Vang | ECON | Unknown | | + + + + + Care Team Providers + +------+ + | Care Outside Plant Supervisor Name | Role | Phone | + +------+ + | Kenyatta Cardenas MD | PCP | | + +------+ + Encounter Details +--------+ + + + + | Date | Type | Department | Care Team | Description | +--------+ + + + + | 05/28/ | Phillip | NKECHI DUMAS at [facility] | Lab, Gi Procedure | | | 2018 | on | [place] [address] | | | | | [address] Mailcode: | | | | | | OC2L [facility] | | | | | | Health and Healing, | | | | | | [facility] 2 | | | | | | [place], [place] | | | | | | [address] | | | | | | [phone] | | | +--------+ + + + [...] | | 2019 | Visit | | [address] | | | | | | [place], [place] | | | | | | [address] | | | | | | [phone] | | | | | | | | +--------+---------+ + + + documented as of this encounter Visit Diagnoses Not on filedocumented in this encounter"
--- OUTSIDE RECORDS SUMMARY | ~2019-12-02 | XMS | Encounter Summary ---
Demographics + + + | Address | [address] | | | [place] [address] | + + + | Home Phone [...] [place], [place] | | | | | [address] | | + + + + + | Ellie Vang | ECON | Unknown | | + + + + + Care Team Providers + +------+ + | Care Model Dresser Name | Role | Phone | + [...] | HA Roldan | | | with HYDRATE THICKENER OPERATOR | | hypertension | [address] | [address] | | | | | Right | [address] | [place] | | | | | heart | [place], [place] | [place], | | | | | failure | [address] | [place] | | | | | ([facility]) Type | Phone: | [address] | | | | | 2 diabetes | [phone] | | | | | | mellitus | Fax: | | | | | | without | [phone] | | | | | | complication | | | | | | | , with | | | | | | | long-term | | | | | | | current use | | | | | | | of insulin | | | | | | | ([facility]) | | | +--------+ + + + + + Encounter Details +--------+---------+ + + + | Date | Type | Department | Care Team | Description | +--------+---------+ + + + | 05/27/ | Office | Digestive Health | Tejas Cevallos, | History of Frandy-en-Y | | 2018 | Visit | Center at [facility] [address] | [address] [facility] | gastric bypass | | | | [facility] | [facility] [address] | (Primary Dx); | | | | for [employer] and | [place], [place] | 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[facility], [place] [address] | [address] | 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[place], [place]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) | | | | [address] | | | | | | [phone] | | | +--------+---------+ + + + [...] Follow-Up Patient referred by: Randell Franks MD [address] [place] [address] Documented time of visit: 2:36pm to 2:49 (13 minutes uzdd-by-yvwb with patient) Surgery: Gastric Bypass Date of [...] Medications since surgery: oral - appt with gas flow regulator on the Testing blood glucose: 92 mg/dl [...] beef, cream of wheat, cream of mushroom, irish yogurt Fluid choices: water Supplementation: Flinstones, iron, [...] multivitamin & mineral (with iron) supplement, 2/day -6463-4455 mg calcium citrate with vitamin D/day (take in divided doses, not within 2 hour s of multivitamin or iron supplement) -500 mcg/day sublingual B12 supplement (or monthly injections) Continued to reinforce importance of mindful eating. Continue to increase physical activity. Follow up in 3 months or earlier as needed. Tejas Cevallos RD, LD Pager # [phone] signed by Tejas Cevallos RD at 05/27/2018 3:07 PM PDTdocument ed in this encounter Plan of Treatment +--------+---------+ + + + | Date | Type | Specialty | Care Team | Description | +--------+---------+ + + + | 03/15/ | Office | Cardiology | Randell Franks, | | | 2019 | Visit | | [address] | | | | | | [place], [place] | | | | | | [address] | | | | | | [phone] | | | | | | | | +--------+---------+ + + + documented as of this encounter Procedures + +--------+ + + + | Procedure Name | Priori | Date/Time | Associated Diagnosis | Comments | | | ty | | | | + +--------+ + + + | SD MNT RE-ASSESSMNT | Routin | 05/27/2018 | [...]
--- OUTSIDE RECORDS SUMMARY | ~2019-12-02 | XMS | Encounter Summary ---
Demographics + + + | Address | [address] | | | [place] [address] | + + + | Home Phone [...] [place], [place] | | | | | [address] | | + + + + + | Ellie Vang | ECON | Unknown | | + + + + + Care Team Providers + +------+ + | Care Allocations Clerk Name | Role | Phone | [...] | | | | | | [place], [place] | | | | | | [address] | | | | | | [phone] | | | +--------+ + + + [...] [address]ann[address] | | | | | | [place], [place] | | | | | | [address] | | | | | | [phone] | | | | | | | | +--------+---------+ + + + documented as of this encounter Visit Diagnoses Not on filedocumented in this encounter"
--- OUTSIDE RECORDS SUMMARY | ~2019-12-02 | XMS | Encounter Summary ---
Demographics + + + | Address | [address] | | | [place] [address] | + + + | Home Phone [...] [place], [place] | | | | | [address] | | + + + + + | Ellie Vang | ECON | Unknown | | + + + + + Care Team Providers + +------+ + | Care Florist Supplies Salesperson Name | Role | Phone | [...] | 2019 | | Preventive at [facility] | MD [address] | re-test? ) | | | | [address] | [place], [place] | | | | | Mailcode: [facility] | [address] | | | | | [facility] | [phone] | | | | | and [address], | | | | | | [address] | | | | | | [place], [place] | | | | | | [address] | | | | | | [phone] | | | +--------+ + + + [...] [place] | | | | | | [address] | | | | | | [phone] | | | | | | | [...]
--- OUTSIDE RECORDS SUMMARY | ~2019-12-02 | XMS | Encounter Summary ---
Demographics + + + | Address | [address] | | | [place] [address] | + + + | Home Phone [...] [place], [place] | | | | | [address] | | + + + + + | Ellie Vang | ECON | Unknown | | + + + + + Care Team Providers + +------+ + | Care Poll Clerk Name | Role | Phone | [...] | | 2 diabetes | JEAN, | [place], [place] | | | | | mellitus | [place] [address] | [address] | | | | | without | Phone: | Phone: | | | | | complication | [phone] | [phone] | | | | | (HCC) | Fax: | Fax: | | | | | Procedures | [phone] | [phone] | | | | | HI EST [...] Preventive at [facility] | MD [address] | mellitus without | | | | [address] | [place], [place] | complication, with | | | | Mailcode: CH9A | [address] | long-term current | | | | [facility] | [phone] | use of insulin (HCC) | | | | and Healing, | | (Primary Dx); | | | | [address] | | Morbid obesity with | | | | [place], [place] | | BMI of 70 and over, | | | | [address] | | adult (HCC) | | | | [phone] | | | +--------+---------+ + + + [...] 04/14/2013 Priority: 3 Hypoventilation associated with obesity ([facility]) 06/16/2013 Priority: 4 AMARA (obstructive sleep [...] 02/02/2017 Diabetes mellitus type 2 without retinopathy ([facility]) 02/02/2017 Hyperlipidemia 02/02/2017 Ventral hernia without obstruction [...] exertion) 11/06/2015 Diabetes mellitus with insulin therapy ([facility]) 12/27/2014 Abdominal pain 02/07/2014 Migraine headache 12/05/2013 [...] 1 tablet by mouth once daily CALCIUM CRB&ADF-X7-PYD84-GENIS ORAL Take 2 tablets by mouth two [...] jeart failure is manag ed by her aircraft avionics technician and she was seen by the bariatric surgery group and is now back on tr [facility] for gastric bypass in the upcoming [...] is currently being managed well by her [employer] Nursery Transplanter with diuretics and main tenance of her [...] management of her heart failure by her [employer] Nursery Transplanter 3) Check A1c, lipids 4) Await bariatric [...] Flannery | | | | | | [place], [place] | | | | | | [address] | | | | | | [phone] | | | | | | | [...] + + | [facility]ogi | [address] | [place], [place] | | | SERVICES, LIPID | [address] | [address] | | + + + + + [...] | [facility] | [address] | [place] [address] | | | SERVICES, SPECIAL | [address]ARENCE [...]
--- OUTSIDE RECORDS SUMMARY | ~2019-12-02 | XMS | Encounter Summary ---
[...] [place], [place] | | | | | [address] | | + + + + + | Ellie Vang | ECON | Unknown | | + + + + + Care Team Providers + +------+ + | Care Retort Operator Name | Role | Phone | [...] Medical Records | | 2013 | | [place] at [facility] [address] | [address] [facility] | Review ([facility] - | | | | [address] | [address] | OUTSIDE RECORDS) | | | | Mailcode: [place] | [place], [place] | | | | | [facility] and | [address] | | | | | [place] [address] | [phone] | | | | | [place], [place] | | | | | | [address] | | | | | | [phone] | | | +--------+ + + + [...] Flann[address] | | | | | | [place], [place] | | | | | | [address] | | | | | | [phone] | | | | | | | | +--------+---------+ + + + documented as of this encounter Visit Diagnoses Not on filedocumented in this encounter"
--- OUTSIDE RECORDS SUMMARY | ~2019-12-02 | XMS | Encounter Summary ---
Demographics + + + | Address | [address] | | | [place] [address] | + + + | Home Phone [...] [place], [place] | | | | | [address] | | + + + + + | Ellie Vang | ECON | Unknown | | + + + + + Care Team Providers + +------+ + | Care Member Of Technical Staff Name | Role | Phone | [...] [place] | | | | | | [address] | | | | | | [phone] | | | | | | | | +--------+---------+ + + + documented as of this encounter Visit Diagnoses Not on filedocumented in this encounter"
--- OUTSIDE RECORDS SUMMARY | ~2019-12-02 | XMS | Encounter Summary ---
Demographics + + + | Address | [address] | | | [place] [address] | + + + | Home Phone [...] [place], [place] | | | | | [address] | | + + + + + | Ellie Vang | ECON | Unknown | | + + + + + Care Team Providers + +------+ + | Care Newspaper Clipper Name | Role | Phone | [...] [place] | | | | | | [address] | | | | | | [phone] | | | | | | | | +--------+---------+ + + + documented as of this encounter Visit Diagnoses Not on filedocumented in this encounter"
--- OUTSIDE RECORDS SUMMARY | ~2019-12-02 | XMS | Encounter Summary ---
Demographics + + + | Address | [address] | | | [place] [address] | + + + | Home Phone [...] [place], [place] | | | | | [address] | | + + + + + | Ellie Vang | ECON | Unknown | | + + + + + Care Team Providers + +------+ + | Care Cable Inspector Name | Role | Phone | [...] | obstruction | [address] | [address] [place], | | | | | or gangrene | Rd | [place] | | | | | | [place], [place] | [address] | | | | | Incarcerated | [address] | Phone: | | | | | ventral | Phone: | [phone] | | | | | hernia | [phone] | Fax: | | | | | Procedures | Fax: | [phone] | | | | | REQUEST TO | [phone] | | | | | | SURGERY | | | | | | | REPULPING SUPERVISOR | | | | | | | NE REPAIR | | | | | | | INCISIONAL | | | | | | | HERNIA,STRAN | | | | | | | G NE REPAIR | | | | | | | INCIS | | | | | | | HERNIA W | | | | | | | MESH NE | | | | | | | MUSCLE-SKIN | | | | | | | FLAP,TRUNK | | | | | | | NE | | | | | | | MUSCLE-SKIN | | | | | | | FLAP,TRUNK | | | | | | | NE REPAIR | | | | | | | INCISIONAL | | | | | | | HERNIA,REDUC | | | | | | | IBLE NE | | | | | | | REPAIR INCIS | | | | | | | HERNIA W | | | | | | | MESH NE | | | | | | | REPAIR | | | | | | | RECURR INCIS | | | | | | | | | | | | | | HERNIA,STRAN | | | | | | | G NE REPAIR | | | | | | | INCIS | | | | | | | HERNIA W | | | | | | | MESH NE | | | | | | | REPAIR | | | | | | | RECURR INCIS | | | | | | | | | | | | | | HERNIA,REDUC | | | | | | | NE REPAIR | | | | | | [...] | | | | | obstruction | [place], | Mailcode: | | | | | or gangrene | [place] | [facility] | [address] | [facility] and | | | | | pain, | Phone: | Healing, | | | | | unspecified | [phone] | Building [address] | | | | | abdominal | Fax: | [place], [place] | | | | | location | [phone] | [address] | | | | | Procedures | | Phone: | | | | | CONSULT TO | | [phone] | | | | | SURGERY - | | Fax: | | | | | GENERAL | | [phone] | +--------+--------+ + + + + Encounter Details +--------+---------+ + + + | Date | Type | Department | Care Team | Description | +--------+---------+ + + + | 05/05/ | Office | Dig[facility]ive [facility] | [place], | Ventral hernia | | 2019 | Visit | [facility] [address] | MD [address] | without obstruction | | | | [address] | [address] | or gangrene (Primary | | | | Mailcode: Center | [place], [place] | Dx) | | | | for Health and | [address] | | | | | Healing, Building [address] | [phone] | | | | | [place], [place] | | | | | | [address] | | | | | | [phone] | | | +--------+---------+ + + + [...] (1?2 cup) 6.5 Avocado 1?2 fruit 2.1 [place] sprouts, cooked 125 mL (1?2 cup) 2.0 Figs, dried 60 mL (1?4 cup) 1.9 Anna 1 medium 1.8 Sweet Potato, cooked, without [...] 1.3 Eggplant 125 mL (1?2 cup) 1.3 [place], with skin 1 medium 1.0-1.3 Peas, green, cooked 125 mL (1?2 cup) 0.8-1.3 Carrot, cooked [place] 125 mL (1?2 cup) 1?2 fruit 1.1-1.2 0.7-1.1 Grapefruit 1?2 fruit 0.7-1.1 Prunes, dried 3 1.1 [place], with skin 2 fruits 1.1 Apricots, dried [...] Bread, rye 35 g (1 slice) 0.6-1.0 [place] bread crackers 3 crackers 0.9 Raisin bran [...] of Soluble Fiber [email or web address] PATIENT SURGERY INFORMATION [facility] General Surgery Office Toll-free: ext [phone] Surgery Date: Monday, July 08, 2019 Surgery [...] will be scheduled with you by a master scheduler. You will receive a ca ll [...] ease call the General Surgery Office at [phone] for [id number]. Check-in on the day of surgery is [...] the surgery. Please see the list below, [facility] has a list of products that [...] contact our office . Products Containing Aspirin [place], Anacin, Anexsia with Codeine, Andynos, Aspirin, Aspirin suppositories, Ascrip tin, Aspergum, Axotal, B-A-C, Baby Aspirin, Lucila, BC Powder, Bexophene, Buffaprin, Bufferin , Buffinol, Cama-Arthritis Strength, Congespirin, [place], Coricidin, Damason, Darvon, Dristan, Kalani-Gesic, Digel, Dolprin #3 Tablets, Donatab, Doxaphene, Duragesic, Easprin, Ecotrin, Emag rin Forte, Emiprin, Emprazil, Equagesic, Equazine M, Excedrin, Fiogesic, Fiorgen PH, Fiorice t, Fiorinal, 4-Way Cold Tablet, Gemnisyn, Indocin, Liquprin, Lortab ASA, Magnaprin, Marnal, Meprobamate, Midol, Momentum, Norgesic, [place], Orphengesic, Pabalate, P-A-C, Percodan, Pre salin, Robaxasil, Roxiprin, Saleto, Salocol, SK-65 Compound, Sine-Aid, Sine-Off, [place], Supac, [place]win Compound, Trigesic, Tolectin, Traiminicin, Vanquish, ZORprin, Zomax Products Containing Ibuprofen Advil, Aleve, Haltran, Medipren, Midol, Motrin, Naproxyn, Nuprin, Rufen Herbal Medications Ephedra: discontinue 24 hours before surgery Garlic: discontinue 7 days prior to surgery Ginkgo: discontinue 36 hours prior to surgery Ginseng: discontinue 7 days prior to surgery Kava: discontinue 24 hours prior to surgery [place] s Wort: discontinue 5 days prior to surgery Valerian: discontinue several weeks prior to surgery Other Products Which May Promote Bleeding Vitamin E, Gingko Biloba, Marine Fatty Acids, [place]-3 Fish Oil Supplement PRE-OP BATHING/SHOWER INSTRUCTIONS with [...] loss of tissue. Check out the free [facility] Quit Line - The Quit Line is open 24 hours a day, seven days a we ek. The Quit Line is a telephone and web-based counseling service to help [place]ians quit us ing tobacco and nicotine products. 1.800.QUIT.NOW ( ) or www.quitnow.net/[place] PARKING Parking at the [facility] for patients and visitors is available in the [facility] tructure located across from the emergency department. Patient parking is available on level 1 and 3. Metered parking is available on the top level. Parking at [facility] is available in the building's parking structure. For additional parking options visit [email or web address]. TRANSPORTATION You will require transportation home on the day of discharge. Pain medications and physical activity restrictions may limit your ability to drive safely. CANCELLING YOUR PROCEDURE Please notify the general surgery office at [phone] as soon as possible should you nee [...] lost 100+ lbs! She last saw the [facility] team in 02/2019, at which time [...] plans to see an ENT and a filter worker for her symptoms in the near future. [...] or less 8 [facility] Past Medical History: Diagnosis Date [...] file Gets together: Not on file Attends hindu service: Not on file Active member of club or organization: Not on file Attends meetings of clubs or organizations: Not on file Relationship status: Not on file Other Topics Concern Not on file Social History Narrative Updated 11/09/15 She lives in [place] with her mother and her sister (also her caregiver) lives in an apa rtment/duplex below. She has 2 grandchildren (age 4 and 7) who live with her daughter and son-in-law Her boyfriend lives in [place] HFpEF, DM2, HTN, Sleep Apnea (unable to [...] daily. BELBUCA 600 mcg buccal film CALCIUM [id number] ORAL Take 2 tablets by mouth two [...] by Gadiel Yi . JONES TIWARI MD [facility] [address] Mailcode: [place] [address] I spent 31 minutes with [...] [address] | | | | | | [place], [place] | | | | | | [address] | | | | | | [phone] | | | | | | | | +--------+---------+ + + + documented as of this encounter Visit Diagnoses + + | Diagnosis | + + | Ventral hernia without obstruction or gangrene - Primary Ventral hernia, unspecified, | | without mention of obstruction or gangrene | + + documented in this encounter
--- OUTSIDE RECORDS SUMMARY | ~2019-12-02 | XMS | Encounter Summary ---
Demographics + + + | Address | [address] | | | [place] [address] | + + + | Home Phone [...] [place], [place] | | | | | [address] | | + + + + + | Ellie Vang | ECON | Unknown | | + + + + + Care Team Providers + +------+ + | Care Forest Fire Officer Name | Role | Phone | [...] | Encounter | [address] | [address] | | | | | [place], [place] | [address] | | | 08/23/ | | [address] | [place], [place] | | | 2019 | | [phone] | [address] | | | | | | [phone] | | | | | | | | | | | | Nay Joe, | | | | | | [address] | | | | | | [address] | | | | | | [place], [place] | | | | | | [address] | | | | | | [phone] | | | | | | | | | | | | Jones Tiwari, | | | | | | [address] | | | | | | [address] | | | | | | [place], [place] | | | | | | [address] | | | | | | [phone] | | | | | | | [...] the gallo. She was transitioned off her DIABETES TRAINER on POD1. She di d have difficulty [...] condition. She will follow up at the [facility] with Dr. Tiwari in [...] by mouth once daily at bedtime. CALCIUM CRB&DEG-J0-ILL48-GENIS ORAL Take 2 tablets by mouth two [...] daily. 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 oxycodone, hydrocodone, Vicodin, Bostic, Percocet, Dilaudid) as needed. However, Vicodin/Bostic and Percocet contain acetam inophen in the [...] Narcotic-opioid pain medications (e.g. oxycodone, hydrocodone, Vicodin, Bostic, Percocet, Di laudid) can be constipating, therefore you should take a stool softener on the same day as s tarting your narcotic pain medicine. Options include: Milk of Magnesia: 2 Tablespoons Twice daily Colace (=Docusate): 1 pill Twice daily Miralax: 1 Tablespoon (17 grams) daily (check bottle for mixing instructions) While these are some recommendations, any nzfz-uyd-ruwoesu stool softener should work, and generics are [...] and plan of care. JONES TIWARI MD [facility] [address] [place] [address] documented in this encounter Discharge Instructions Discharge [...] hours by calling the surgery office at [phone]. After hours, weekends and holidays, you may call the hospital hot metal car operator at [phone] and have the compensation and benefits analyst Green Team for general surgery paged. Discharge [...] the gallo. She was transitioned off her DIABETES TRAINER on POD1. She did have dif ficulty [...] dition. She will follow up at the [facility] with Dr. Tiwari in [...] the prescribed narcotic-opioid (e.g. oxycodone, hydrocodone, Vicodin, Bostic, Percocet, Dilaudid) as needed. However, Vicodin/Bostic and Percocet contain acetam inophen in the [...] Narcotic-opioid pain medications (e.g. oxycodone, hydrocodone, Vicodin, Bostic, Percocet, Di laudid) can be constipating, therefore you should take a stool softener on the same day as s tarting your narcotic pain medicine. Options include: Milk of Magnesia: 2 Tablespoons Twice daily Colace (=Docusate): 1 pill Twice daily Miralax: 1 Tablespoon (17 grams) daily (check bottle for mixing instructions) While these are some recommendations, any qlzp-wkj-irsamsa stool softener should work, and generics are fine to use. Increase your fluids, especially your intake of water Increase your activity. Walk frequently. ANTICOAGULATION: We recommend you make an appointment to be seen in your local anticoagulation clinic on Thu08/25/19 to recheck your INR and for ongoing management of your warfarin. FOLLOW-UP: Please call Dr. Tiwari's office ([phone]) to schedule a follow-up appointment for 2-3 [...] | | 0 | | | | CRB&[id number]-GEN | mouth two times | | | [...] + + +---------+ + + | thyroid (PRINTED CIRCUIT BOARDS SOLDER LEVELER | Take 30 mg by mouth | [...] assist PRN. Anticipate discharge michelle Chandler MD [facility], PGY-1 [place] Caseworker Pager: [phone] signed by Jones Tiwari MD at 08/22/2019 [...] dc in 2-3 days Gadiel Chandler MD [facility], PGY-1 Green Caseworker Pager: [phone] Associated attestation - Jones Tiwari MD - 08/21/2019 9:57 AM PSTI performed a hist ory and physical examination of the patient and discussed her management with the resident. I reviewed the resident s note and agree with the documented findings and plan of care. JONES TIWARI MD [facility] [address] [place] [address] Valencia Zamora MD - 08/20/2019 8:42 AM [...] well. - ruiz out today - dc DIABETES TRAINER - ppx lovenox today - therapeutic lovenox [...] care -Multimodal pain control Joselyn Everett MD [facility] General Surgery PGY1 [id number] Gadiel Armstrong MD - 08/19/2019 12:34 PM [...] Gadiel Chandler MD [facility], PGY-1 Green Caseworker Pager: [phone] documented in this encounter Plan of Treatment +--------+---------+ + + + | Date | Type | Specialty | Care Team | Description | +--------+---------+ + + + | 03/15/ | Office | Cardiology | Aly Franks, | | 2019 | Visit | | [address] | | | | | | [place], [place] | | | | | | [address] | | | | | | [phone] | | | | | | | [...] [facility] | [address] | [place] [address] | | | SERVICES, CORE | CLARENCE [...] [facility] | [address] | [place] [address] | | | SERVICES, CORE | PARK [...] | + + + + + | [facility] | [address] | [place] [address] | | | SERVICES, CORE | CLARENCE [...] (H) | 70 - 99 mg/dL | [facility] - | | | [...] [facility] | [address] | [place], [place] | | | JUSTINE DAWN OF JAKY | [address] | [address] | | | TESTS | | | [...] [facility] | [address] | [place], [place] | | | JUSTINE DAWN OF CARE | [address] | [address] | | | TESTS | | | [...] LABORATORY | [address] | [place] [address] | | | SERVICES, | [address] [...] + + | [facility] | [address] | [place] [address] | | | SERVICES, | [address] [...] [facility] | [address] | [place], [place] | | | JUSTINE DAWN OF CARE | [facility] | [address] | | | TESTS | | | [...] | [facility] | | | GRAVITY | [facility] performed by | | LABORATORY | | [...] [facility] | [address] | [place] [address] | | | SERVICES, CORE | PARK [...] LABORATORY | [address] | [place] [address] | | | SERVICES, | [address] [...] [facility] | [address] | [place] [address] | | | SERVICES, CORE | PARK [...] [facility] | [address] | [place] [address] | | | SERVICES, CORE | PARK [...] | + + + + + | [facility] | [address] | [place] [address] | | | SERVICES, CORE | [address] | | | + + + + + LIPASE, PLASMA (08/18/2019 4:18 PM PST) + +---------+ + + + | Component | Value | Ref Range | Performed | Pathologist | | | | | At | Signature | + +---------+ + + + | LIPASE | 117 (L) | 152 - 353 U/L | [facility] | | | (LAB) | | | [...] | + + + + + | [facility] | [address] [facility] [facility] | [place] [address] | | | SERVICES, [facility] | [address] | | | + [...] [facility] | [address] | [place] [address] | | | SERVICES, [facility] | [address] | | | + + + + + ED INFORMATION EXCHANGE (08/18/2019 1:47 PM PST) + + | Specimen | + + | | + + + + + | Narrative | Performed At | + + + | COLLECTIVE?NOTIFICATION?08/18/2019 13:47?DYLAN ROMERO?MRN: | COLLECTIVE | | [id number] Criteria Met 5 Visits In 12 Months Has | MEDICAL | | Guidelines PDMP Security and Safety No recent Security Events | [employer] | | currently on file ED Care Guidelines from [employer] - [place] | | | Last Updated: 12/06/18 9:53 AM Care Coordination: Receiving | | | mental health services with [employer].? Please contact [employer] for | | | mental health concerns.? Sarah/Toni Centeno: [phone]? | | | Kishan: [phone].? These are guidelines and the provider | | | should exercise clinical judgment when providing care. Care | | | History Medical/Surgical 05/24/19 12:00 AM [facility] | | | Hospital PATIENT HAS AN APT ON 06/16/[address] HYLTON. | | | 05/11/19 12:00 AM [facility] Patient is | | | currently established with [facility]. If patient is seen in | [...] care. 08/23/18 12:00 AM | | | [facility] PATIENT HAS A PCP APT TO ESTABLISH | | | CARE ON 10/04/18 @ 10:00AM WITH DR HYLTON. Flags | | | [place] Disparity [place] - [place] | | | Disparity Measure) to help support Medicaid members with mental | | | illness. [facility] uses claims data with a 36-month | [...] | are updated weekly. / Attributed By: [facility]) / | | | Attributed On: [...] | ALPRAZOLAM 1 MG TABLET 60 WINSTON SNOWDENLIANG 4 0 2019-07-10 SUDOGEST 12 | | [...] (12 | | | mo.) Facility Visits [facility] 1 [facility] | | | [facility] 2 [facility] 7 Total 10 Note: | | | Visits indicate total known visits. Recent Emergency Department | | | Visit Summary Date Facility City State Type Diagnoses or Chief | | | Complaint Aug 18, 2019 [facility] [place] | | [place] Emergency 10,800. amr Jun 25, 2019 [facility] | | | 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 Emergency | | | 10,800. A303 18,400. Bariatric surgery status 18,400. | | | Ventral hernia without obstruction or gangrene 18,400. Nausea | | | with vomiting, unspecified 18,400. Unspecified abdominal pain | | | 18,400. Nonspecific mesenteric lymphadenitis May 10, 2019 [facility] | | [facility] 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 [place] [facility] RIGHT LEG PAIN DUE TO FALL | | | Strain of unsp musc/tend at lower leg level, right leg, init | | | Aug 22, 2018 [facility] 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 Care Team Provider Specialty Phone Fax Service | | | Dates Eagle Nino CHW Community Health Worker | | | Jul 03, 2019 - Current JONES DAVISON D.M.D. Dentist: | | | Car Retarder Operator May 23, 2019 - | | | Current Romeo Tilleyi Chainer/Customer Professional ([phone]) | | | [phone] Mar 27, 2018 - Current Bernard Hylton MD Internal | | | Medicine: Pulmonary Disease Aug 23, 2018 - Current | | | [employer] This patient has registered at the [facility] | | | [facility] Emergency Department For more information | | | visit: | | | [email or web address] | | | [email or web address] a PLEASE NOTE: 1. Any care recommendations [...] or completeness of information provided. ? 2020 [employer] | | | [employer]. - [email or web address] | | + + + + + [...] on fileED Care Guidelines | | from [employer] - [place] Updated: 12/06/18 9:53 AM Care Coordination:Receiving | | mental health services with [employer].? Please contact [employer] for mental health | | concerns.? Sarah/Toni Centeno: [phone]? Kishan: [phone].?These are | | guidelines and the provider should exercise clinical judgment when providing care.Care | | HistoryMedical/Vcgxjivv43/29/19 12:00 AM [facility] PATIENT HAS AN APT | | ON 06/16/[address] HYLTON.05/11/19 12:00 AM [facility] Patient is | | currently established with [facility]. If patient is seen in the ED during | | business hours. Please contact CHWs at [facility].Care Recommendation:This | | patient has had [...] when providing | | care.08/23/18 12:00 AM [facility] PATIENT HAS A PCP APT TO ESTABLISH CARE | | ON 10/04/18 @ 10:00AM WITH DR HYLTON. Flags [place] Disparity [place] - [place] has | | developed a flag ([place] Disparity [place]) to help support Medicaid members with | | mental illness. [facility] uses claims data with a 36-month rolling look | | back period to identify members who have had two or more diagnoses of mental illness | | (does not need to be primary) in any setting (e.g. ED, Inpatient, primary care). Flagged | | members are included in the ED Disparity Measure denominator population. Flags are | | updated weekly. / Attributed By: [facility]) / Attributed On: [...] 0 2019-07-26 FENTANYL 12 MCG/HR PATCH 10 Analisa FERRER PA-C 2 0 2019-07-12 ALPRAZOLAM 1 MG [...] HOUR 120 MG | | CAPLET 30 MARCOROCKY APPIAH PA-C 0 2019-05-17 ALPRAZOLAM 1 MG [...] 0 E.D. Visit Count (12 mo.)Facility Visits [facility] 1 [facility] | | [facility] [place] 2 [facility] 7 Total 10 Note: Visits indicate | | total known visits. Recent Emergency Department Visit SummaryDate Facility City State | | Type Diagnoses or Chief Complaint Aug 18, 2019 [facility] | | [place] Emergency 10,800. amr Jun 25, [address] [facility] [place] Emergency | | long-term (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 Anxiety disorder, unspecified | | Cellulitis of abdominal wall Acute embolism and thrombosis of deep veins of r up | | extrem Nicotine dependence, unspecified, uncomplicated Migraine, unsp, not | | intractable, without status migrainosus Unspecified abdominal pain Allergy status | | to oth drug/meds/biol subst status Other custodial (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 Allergy | | status to penicillin Jun 19, 2019 [facility] [place] Emergency long-term | | (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 Prsnl [...] unspecified Jun 01, 2019 | | [facility] 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 | | [place] Emergency Anxiety disorder, unspecified Acute embolism and thrombosis of | | deep veins of r up extrem Allergy status to penicillin Other custodial (current) | | drug therapy Pain in right arm long-term (current) use of aspirin Allergy | | status to oth drug/meds/biol subst status May 20, 2019 [facility] [place] | | Emergency Generalized abdominal pain Allergy status to oth drug/meds/biol subst | | status Unspecified abdominal pain Anxiety disorder, unspecified Other chronic | | pain Allergy status to penicillin termite control technician (current) use of aspirin Prsnl hx | | of TIA (TIA), and cereb infrc w/o resid deficits Other custodial (current) drug | | therapy May 13, 2019 [facility] [place] Emergency | | 10,800. A303 18,400. Bariatric surgery status 18,400. Ventral hernia without | | obstruction or gangrene 18,400. Nausea with vomiting, unspecified 18,400. | | Unspecified abdominal pain 18,400. Nonspecific mesenteric lymphadenitis May 10, 2019 | | [facility] [place] Emergency Nausea with vomiting, unspecified Solitary | | pulmonary nodule Anxiety disorder, unspecified Ventral hernia without obstruction | | or gangrene Unspecified abdominal pain Diarrhea, unspecified Allergy status to | | oth drug/meds/biol subst status Prsnl hx of TIA (TIA), and cereb infrc w/o resid | | deficits Other custodial (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 Allergy status to penicillin November | | 2018 [facility]. [place] Emergency RIGHT LEG PAIN DUE TO FALL | | Strain of unsp musc/tend at lower leg level, right leg, init Aug 22, [address] [facility] [address] | | [facility] 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 Care TeamProvider Specialty | | Phone Fax Service Dates Eagle Nino CHW Community Health Worker | | Jul 03, 2019 - Current JONES DAVISON D.M.D. Dentist: Car Retarder Operator [phone] | | [phone] May 23, 2019 - Current Rob Tilley Chainer/Care | | Coordinator Mar 27, 2018 - Current Bernard Hylton MD Internal Medicine: | | Pulmonary Disease Aug 23, 2018 - Current [employer] PortalThis patient has registered | | at the [facility] Emergency Department For more information | | visit: [email or web address] | | PLEASE NOTE: 1. Any care [...] completeness of information | | provided.? 2020 [employer]. - [email or web address] | | Allergy status to oth drug/meds/biol subst status | | Other custodial (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 | | Allergy status to penicillin | | | |Jun 19, 2019 [facility] 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 Emergency | | 10,800. A303 | | 18,400. Bariatric surgery status | | 18,400. Ventral hernia without obstruction or gangrene | | 18,400. Nausea with vomiting, unspecified | | 18,400. Unspecified abdominal pain | | 18,400. Nonspecific mesenteric lymphadenitis | | | |May 10, 2019 [facility] [place] Emergency | | Nausea [...] penicillin | | | |December 03, 2018 [facility]. [place] Emergency | | RIGHT LEG PAIN DUE TO FALL | | Strain of unsp musc/tend at lower leg level, right leg, init | | | |Aug 22, 2018 [facility] 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 | | | |Care Team | |Provider Specialty Phone Fax Service Dates | |Eagle Nino CHW Community Health Worker Jul 03, 2019 - Current | |JONES DAVISON D.M.D. Dentist: Car Retarder Operator May 23 019 - Current | |Rob Tilley Chainer/Customer Professional Mar 27, 2018 - Current | |Bernard Hylton MD Internal Medicine: Pulmonary Disease Aug 23, 2018 - Current | | | |[employer] Portal | |This patient has registered at the [facility] Emergency Depart[facility] t | |For more information visit: [email or web address] | |PLEASE NOTE: | | 1. Any [...] information provided. | | | |? 2020 [employer]. - [email or web address] | + + + + + + + | Performing | Address | City/State/Zipcode | Phone Number | | Organization | | | | + + + + + | [facility] | [address] | [place], [place] | [phone] | | [employer] | [address] | [address] | | + + + + + [...] | | | DAILY, First dose on [facility] 08/18/19 | | AM PST | [...] | | 12 HOURS, First dose on [place] | | | | | | | [...] | | | | | 08/21/19 at 9, Until Tue | | | | | [...] + + +---+---+---+ | HYDROmorphone 0.5 mg/mL DIABETES TRAINER | Rate/Dos | 08/20/19 | | | | | (ADULT STANDARD DOSE) in 0.9 % | e Verify | 20 4:12 | | | | | NaCl DIABETES TRAINER Dose: 0.2 mg, Lockout | | AM [...] 08/19/19 at 1835, | | | Until Thu08/19/19 at 1858 | | + +---+ | [...] | | | dose on [facility] 08/18/19 at 2200, | | PM [...] | | | | | NEEDED, Starting [facility] 08/18/19 at | | | | [...] | | | | | 08/20/19 at 2024, Until Tue | | | | | [...] | | | | First dose on [facility] 08/18/19 at | | AM PST [...]
--- OUTSIDE RECORDS SUMMARY | ~2019-12-02 | XMS | Encounter Summary ---
Demographics + + + | Address | [address] | | | [place] [address] | + + + | Home Phone [...] [place], [place] | | | | | [address] | | + + + + + [...] Diabetes & | Morbid | Kathy M, HIGH WIRE ARTIST | [address] | | | | Metabolism | obesity | [address] | Pavilion | | | | | (HCC) | [address], | Loop | | | | | Procedures | [address] | Physician's | | | | | CONSULT TO | [place], [place] | Pavilion | | | | | ENDO | [address] | Physician's | | | | | [address] | Phone: | Pavilion | | | | | | [phone] | [place], [place] | | | | | | Fax: | [address] | | | | | | [phone] | Phone: | | | | | | | [phone] | | | | | | | Fax: | | | | | | | [phone] | +--------+--------+ + + + + Encounter [...] | | | [facility] | [place], [place] | (Primary Dx); Morbid | | | | [address] | [address] | obesity (HCC) | | | | [address] | [phone] | | | | | Physician's Pavilion | | | | | | Physician's | | | | | | Pavilion [place], | | | | | | [place] [address] | | | | | | [phone] | | | +--------+---------+ + + + [...] [place] | | | | | | [address] | | | | | | [phone] | | | | | | | [...]
--- OUTSIDE RECORDS SUMMARY | ~2019-12-02 | XMS | Encounter Summary ---
Demographics + + + | Address | [address] | | | [place] [address] | + + + | Home Phone [...] + | Organization | [facility] | [...] Team Providers + +------+ + | Care Mineral Engineer Name | Role | Phone | [...] + + | 06/10/ | Telephone | [facility] | [facility], | Referral | | 2019 | | INTERVENTIONAL | Mary Ortiz | | | | | RADIOLOGY [address] | Java Consultant | | | | | [address] | | | | | | [place], [place] | | | | | | [address] | | | | | | [phone] | | | +--------+ + + + [...] | | | | | [place] [address] | | | | | | [phone] | | | | | | | | +--------+---------+ + + + documented as of this encounter Visit Diagnoses Not on filedocumented in this encounter"
--- OUTSIDE RECORDS SUMMARY | ~2019-12-02 | XMS | Encounter Summary ---
Demographics + + + | Address | [address] | | | [place] [address] | + + + | Home Phone [...] [place], [place] | | | | | [address] | | + + + + + | Ellie Vnag | ECON | Unknown | | + + + + + Care Team Providers + +------+ + | Care Batch Still Operator Name | Role | Phone [...] (PHENTERMINE 37.5 mg | | | | [facility] at | [place], [place] | ); Refill Request | | | | [place] [address] [address] | [address] | | | | | [facility] | [phone] | | | | | [facility] | | | | | | [place], [place] | | | | | | [address] | | | | | | [phone] | | | +--------+ + + + [...] [place] | | | | | | [address] | | | | | | [phone] | | | | | | | | +--------+---------+ + + + documented as of this encounter Visit Diagnoses Not on filedocumented in this encounter"
--- OUTSIDE RECORDS SUMMARY | ~2019-12-02 | XMS | Encounter Summary ---
Demographics + + + | Address | [address] | | | [place] [address] | + + + | Home Phone [...] [place], [place] | | | | | [address] | | + + + + + | Ellie Vang | ECON | Unknown | | + + + + + Care Team Providers + +------+ + | Care Job Press Operator Name | Role | Phone [...] Medical Records | | 2013 | | [place] [facility] [address] | [address] [facility] | Review ([facility] - | | | | [address] | [address] | OUTSIDE RECORDS) | | | | Mailcode: [place] | [place], [place] | | | | | [facility] and | [address] | | | | | [place] [address] | [phone] | | | | | [place], [place] | | | | | | [address] | | | | | | [phone] | | | +--------+ + + + [...] [address]ann[address] | | | | | | [place], [place] | | | | | | [address] | | | | | | [phone] | | | | | | | | +--------+---------+ + + + documented as of this encounter Visit Diagnoses Not on filedocumented in this encounter"
--- OUTSIDE RECORDS SUMMARY | ~2019-12-02 | XMS | Encounter Summary ---
Demographics + + + | Address | [address] | | | [place] [address] | + + + | Home Phone [...] + | Organization | [facility] | | | and [...] Providers + +------+ + | Care Core Rescuer Name | Role | Phone | + [...] | | [address] | [place] [address] | | | | | [address] | | | | | | [phone] | | | +--------+ + + + [...] RICHEY | | | | | | [place] [address] | | | | | | [phone] | | | | | | | [...]
--- OUTSIDE RECORDS SUMMARY | ~2019-12-02 | XMS | Encounter Summary ---
Demographics + + + | Address | [address] | | | [place] [address] | + + + | Home Phone [...] [place], [place] | | | | | [address] | | + + + + + | Ellie Vang | ECON | Unknown | | + + + + + Care Team Providers + +------+ + | Care Legal Administrator Name | Role | Phone | [...] at [facility] [address] | COLOR RECEIVER [address] | | | | | [address] | [facility] [address] | | | | | Mailcode: Center | [place], [place] | | | | | [facility] and | [address] | | | | | [facility] 2 | [phone] | | | | | [place], [place] | | | | | | [address] | | | | | | [phone] | | | +--------+ + + + [...] | | | | | | [place], [place] | | | | | | [address] | | | | | | [phone] | | | | | | | | +--------+---------+ + + + documented as of this encounter Visit Diagnoses Not on filedocumented in this encounter"
--- OUTSIDE RECORDS SUMMARY | ~2019-12-02 | XMS | Encounter Summary ---
Demographics + + + | Address | [address] | | | [place] [address] | + + + | Home Phone [...] [place], [place] | | | | | [address] | | + + + + + [...] + + | 02/07/ | Hospital | [address] | [place], | | | 2014 - | Encounter | [address] | [address] | | | | | [place], [place] | [address] | | | 02/08/ | | [address] | [place], [place] | | | 2013 | | [phone] | [address] | | | | | | [phone] | | | | | | | [...] the resident s note. PRADIP STARR MD [facility] [address] [facility] [place] [address] orrMaryam hill MD - 1:05 PM PDT [facility] DEPARTMENT OF SURGERY EMERGENCY GENERAL SURGERY [...] Type 2 DM who presented to the [facility] ED ([place], [place]) on 02/06/14, with a week hi story of RUQ abdominal pain that radiates to her back. There, she was found to have leukocyt osis and multiple tiny, mobile stones, + sonographic Peterson's sign on abdominal ultrasound, concerning for acute cholecystitis. She was givenIV antibiotics (cipro, flagyl) and pain med s, then transferred to [facility] by [facility] for further care. Ms. Romero endorsed 7/10 [...] up in 2-4 weeks ) Contact information [address] [facility] Mailcode: L223a [facility] [address] [place] [address] Thank you for [...] the resident s note. PRADIP STARR MD [facility] [address] [place] [address] orrMaryam hill MD - 5:17 AM PDT [facility] DEPARTMENT OF SURGERY EMERGENCY GENERAL SURGERY Division [...] tolerated MARYAM RHODES MD PGY-1, General Surgery 11831 pager number [facility] A [address] [facility] [place] [address] documented in this encoun ter Plan of Treatment +--------+---------+ + + + | Date | Type | Specialty | Care Team | Description | +--------+---------+ + + + | 03/15/ | Office | Cardiology | Randell Franks, | | | 2019 | Visit | | [address] | | | | | | [place], [place] | | | | | | [address] | | | | | | [phone] | | | | | | | [...] AMES | [address] | [place], [place] | | | JUSTINE DAWN OF JAKY | [facility] | [address] | | | TESTS | | | [...] MARQUAM | [address] | [place], [place] | | | JUSTINE DAWN OF CARE | [address] | [address] | | | TESTS | | | [...] | 60 - 99 mg/dL | [facility] - | | | GLUCOSE, [...] YAKOVAM | [address] | [place], [place] | | | JUSTINE DAWN OF JAKY | [address] | [address] | | | TESTS | | | [...] AMES | [address] | [place], [place] | | | JUSTINE DAWN OF JAKY | [facility] | [address] | | | TESTS | | | [...] [facility] | [address] | [place] [address] | | | SERVICES, | [address] [...] | + + + + + | [facility] | [address] | [place] [address] | | | SERVICES, | [address] [...] MARQUAM | [address] | [place], [place] | | | JUSTINE DAWN OF JAKY | [address] | [address] | | | TESTS | | | [...] LABORATORY | [address] | [place] [address] | | | SERVICES, CORE | [address]ARENCE [...] + + | [facility] | [address] [facility] | [place] [address] | | | SERVICES, CORE | [address] [...] + + + | [facility] | [address] | [place] [address] | | | SERVICES, CORE | P[address] [...] | + + + + + | [facility] | [address] [facility] | [place] [address] | | | SERVICES, CORE | CLARENCE [...] | + + + + + | [facility] | [address] | [place] [address] | | | SERVICES, CORE | CLARENCE [...] AMES | [address] | [place], [place] | | | JUSTINE DAWN OF JAKY | [address] | [address] | | | TESTS | | | [...] pattern. | | | | | | Butadiene Compressor Operator | | | | | | [...] + + + + | [facility] | [address] | [place] [address] | | | PATHOLOGY | [address] [...]
--- OUTSIDE RECORDS SUMMARY | ~2019-12-02 | XMS | Encounter Summary ---
[...] [place], [place] | | | | | [address] | | + + + + + | Ellie Vang | ECON | Unknown | | + + + + + Care Team Providers + +------+ + | Care Children'S Literature Professor Name | Role | Phone | + +------+ + | Fadi Goodrich DO | PCP | | + +------+ + Encounter Details +--------+------+ + + + | Date | Type | Department | Care Team | Description | +--------+------+ + + + | 12/05/ | Lab | Laboratory at [facility] | | Type 2 diabetes | | 2013 | | [address] | | mellitus (HCC) | | | | [place], [place] | | | | | | [address] | | | | | | [phone] | | | +--------+------+ + + + [...] [place] | | | | | | [address] | | | | | | [phone] | | | | | | | [...] [facility] | [address] | [place] [address] | | | SERVICES, SPECIAL | [address] [...]
--- OUTSIDE RECORDS SUMMARY | ~2019-12-02 | XMS | Encounter Summary ---
Demographics + + + | Address | [address] | | | [place] [address] | + + + | Home Phone [...] [place], [place] | | | | | [address] | | + + + + + | Ellie Vang | ECON | Unknown | | + + + + + Care Team Providers + +------+ + | Care Label Printer Name | Role | Phone | [...] | [facility] | | | with UPHOLSTERER APPRENTICE | | hypertension | [address] | [address] | | | | | Right | [address] | [address] | | | | | heart | [place], [place] | Mailcode: | | | | | failure | [address] | [facility] | | | | | ([facility]) Type | Phone: | Health and | | | | | 2 diabetes | [phone] | Healing, | | | | | mellitus | Fax: | [address] | | | | | without | [phone] | [place], [place] | | | | | complication | | [address] | | | | | , with | | Phone: | | | | | long-term | | | | | | | current use | | Fax: | | | | | of insulin | | [phone] | | | | | ([facility] [...] | | 2 diabetes | JEAN, | [place], [place] | | | | | mellitus | [place] [address] | [address] | | | | | without | Phone: | Phone: | | | | | complication | [phone] | [phone] | | | | | (HCC) | Fax: | Fax: | | | | | Procedures | [phone] | [phone] | | | | | [place] EST [...] | 2017 | Visit | Preventive at [facility] | MD [address] | hypertension | | | | [address] | [place], [place] | (Primary Dx); Right | | | | Mailcode: [facility] | [address] | heart failure (HCC); | | | | [facility] | [phone] | Type 2 diabetes | | | | and Healing, | | mellitus without | | | | [address] | | complication, with | | | | [place], [place] | | long-term current | | | | [address] | | use of insulin (HCC) | | | | [phone] | | | +--------+---------+ + + + [...] 81 mg by mouth once daily. CALCIUM [id number]-GENIS ORAL Take 2 tablets by mouth two [...] then she has worked closely with her [facility] doctor and has been been able to [...] 12 CREATININE PLASMA (LAB) 0.79 EGFR - TUNISIAN >60 EGFR NON -TUNISIAN >60 GLUCOSE, PLASMA (LAB) 170 (H) CALCIUM, [...] to bariatric surgery for consideration of a aflredo tomeka bypass operation. 4) Hypothyroidism: TSH stable, [...] [address]annery | | | | | | [place], [place] | | | | | | [address] | | | | | | [phone] | | | | | | | [...] + | [facility] | [address] | [place] [address] | | | SERVICES, CORE | CLARENCE [...] + + | [facility] | [address] | [place], [place] | | | SERVICES, LIPID | [address] | [address] | | + + + + + [...] [facility] | [address] | [place] [address] | | | SERVICES, SPECIAL | CLARENCE [...] the MDRD equation recommended by the | [facility] | | National Kidney Disease Education [...] NKECHI ROBERTS | [address] | [place] [address] | | | LYDIA RANGEL | [address] [...]
--- OUTSIDE RECORDS SUMMARY | ~2019-12-02 | XMS | Encounter Summary ---
Demographics + + + | Address | [address] | | | [place] [address] | + + + | Home Phone [...] [place], [place] | | | | | [address] | | + + + + + | Ellie Vang | ECON | Unknown | | + + + + + Care Team Providers + +------+ + | Care Lab Technologist Name | Role | Phone | + +------+ + | Fadi Goodrich DO | PCP | | + +------+ + Encounter Details +--------+------+ + + + | Date | Type | Department | Care Team | Description | +--------+------+ + + + | 10/12/ | Lab | Laboratory at [facility] | | | | 2019 | | [address] | | | | | | [place], [place] | | | | | | [address] | | | | | | [phone] | | | +--------+------+ + + + [...] Flannery | | | | | | [place], [place] | | | | | | [address] | | | | | | [phone] | | | | | | | [...] | [facility] | [address] | [place] [address] | | | CLAIRE, LYDIA | CLARENCE [...] INTFC | | | | determined by [employer] | | | | | | Strategic Blue. See | | | | | | Compliance Statement B: | | | | | | Caspida/CSPerformed | | | | | | by [employer],[address] | | | | | | [facility],[place] | | | | | | [address] | | | | | | [phone].LocalCustomer. | | | | | | MEMSICIsmael MD, | | | | | | [...] [facility] | [address] | [place], [place] | | | UNIV PTH - INTFC | | [address] | | + + + + + ZINC, SERUM (10/12/2018 3:29 PM PDT) + + + + + + | Component | Value | Ref Range | Performed | Pathologist | | | | | At | Signature | + + + + + + | ZINC SERUM | 58 (L)Comment: | 60 - 120 ug/dL | [facility] | | | | INTERPRETIVE [...] | | | | | determined by [employer] | | | | | | Laboratories. See | | | | | | Compliance Statement B: | | | | | | Caspida/CSPerformed | | | | | | by [employer],[address] | | | | | | Natalia [place], [facility] | | | | | | [address] | | | | | | [phone].LocalCustomer. | | | | | | Ismael [...] | + + + + + | [employer] | [address] | [place], [place] | | | UNIV PTH - INTFC | | [address] | | + + + + + [...] [facility] | | | (YEN NOAH) | [facility] [facility],[address] | | REG UNIV | | | SERUM | Natalia Martinez [facility] | | PTH - INTFC | | | | [address] | | | | | | [phone].aruplab. | | | | | | Ismael [...] [facility] | | | | | | [employer]. See | | | | | | Compliance Statement B: | | | | | | Caspida/CS | | | | + + + + + + + + | Specimen | + + | Blood - Blood | | (substance) | + + + + + + + | Performing | Address | City/State/Zipcode | Phone Number | | Organization | | | | + + + + + | [facility] | [address] | [place], [place] | | | UNIV PTH - INTFC | | [address] | | + + + + + [...] [facility] | [address] | [place] [address] | | | LYDIA RANGEL | CLARENCE [...] + + | [facility] | [address] | [place] [address] | | | CLAIRE, LYDIA | CLARENCE [...] | | | | | determined by [employer] | | | | | | Laboratories. See | | | | | | Compliance Statement B: | | | | | | LocalCustomer.MEMSIC/CSPerformed | | | | | | by [employer],[address] | | | | | | Natal[facility],[place] | | | | | | [address] | | | | | | [phone].LocalCustomer. | | | | | | com, [...] [facility] | [address] | [place], [place] | | | UNIV PTH - INTFC | | [address] | | + + + + + [...] + | [facility] | [address] | [place] [address] | | | SERVICES, CORE | PARK [...] | | | | | determined by [employer] | | | | | | Laboratories. See | | | | | | Compliance Statement B: | | | | | | LocalCustomer.MEMSIC/CSPerformed | | | | | | by [employer],[address] | | | | | | Natal[facility],[place] | | | | | | [address] | | | | | | [phone].LocalCustomer. | | | | | | com, Ismael Willis MD, | | | | | | Lab. Director | | | | + + + + + + + + | Specimen | + + | Blood - Blood | | (substance) | + + + + + + + | Performing | Address | City/[facility] | Phone Number | | Organization | | | | + + + + + | [facility] | [address] | [place], [place] | | | UNIV PTH - INTFC | | [address] | | + + + + + [...] [facility] | [address] | [place] [address] | | | SERVICES, CORE | PARK [...] [facility] | [address] | [place] [address] | | | SERVICES, SPECIAL | PARK [...] + | [facility] | [address] | [place] [address] | | | LYDIA RANGEL | CLARENCE [...] at | | | | | | [email or web address] | | | | | | med by [facility] | | | | | | [facility],[address] | | | | | | [place] [address] | | | | | | [phone].LocalCustomer. | | | | | | lds hospitalIsmael MD, | | | | | | Lab. Director | | | | + + + + + + + + | Specimen | + + | Blood - Blood | | (substance) | + + + + + + + | Performing | Address | City/State/[facility] | Phone Number | | Organization | | | | + + + + + | [facility] | [address] | [place], [place] | | | UNIV PTH - INTFC | | [address] | | + + + + + [...] [facility] | [address] | [place] [address] | | | SERVICES, LYDIA | [address] | | | + + + + + documented in this encounter Visit Diagnoses Not on filedocumented in this encounter"
--- OUTSIDE RECORDS SUMMARY | ~2019-12-02 | XMS | Encounter Summary ---
Demographics + + + | Address | [address] | | | [place] [address] | + + + | Home Phone [...] [place], [place] | | | | | [address] | | + + + + + | Ellie Vang | ECON | Unknown | | + + + + + Care Team Providers + +------+ + | Care Material Control Supervisor Name | Role | Phone | + +------+ + | Fadi Goodrich DO | PCP | | + +------+ + Encounter Details +--------+ + + + + | Date | Type | Department | Care Team | Description | +--------+ + + + + | 07/06/ | Abstract | [facility] | Clinic, Surgery | | | 2016 | | [place] [address] [address] | | | | | | [address] | | | | | | Mailcode: [place] | | | | | | [facility] and | | | | | | [facility] 2 | | | | | | [place], [place] | | | | | | [address] | | | | | | [phone] | | | +--------+ + + + [...] | | | | | | [place], [place] | | | | | | [address] | | | | | | [phone] | | | | | | | | +--------+---------+ + + + documented as of this encounter Visit Diagnoses Not on filedocumented in this encounter"
--- OUTSIDE RECORDS SUMMARY | ~2019-12-02 | XMS | Encounter Summary ---
Demographics + + + | Address | [address] | | | [place] [address] | + + + | Home Phone [...] [place], [place] | | | | | [address] | | + + + + + | Elile Vang | ECON | Unknown | | + + + + + Care Team Providers + +------+ + | Care Back Hoe Operator Name | Role | Phone | + +------+ + PCP | Unavailable | + +------+ + Encounter Details +--------+ + + + + | Date | Type | Department | Care Team | Description | +--------+ + + + + | 05/13/ | Results | | Other, Faculty | | | 1992 | Only | | [phone] | | +--------+ + + + + [...] [address] | | | | | | [place], [place] | | | | | | [address] | | | | | | [phone] | | | | | | | [...] | | | | | | | 21-26-54-69CT SCAN OF | | | | | [...] + | [facility] DEPARTMENT | | | | | RADIOLOGY | | | | + +---------+ + + documented in this encounter Visit Diagnoses Not on filedocumented in this encounter"
--- OUTSIDE RECORDS SUMMARY | ~2019-12-02 | XMS | Encounter Summary ---
Demographics + + + | Address | [address] | | | [place] [address] | + + + | Home Phone [...] [place], [place] | | | | | [address] | | + + + + + | Ellie Vang | ECON | Unknown | | + + + + + Care Team Providers + +------+ + | Care Coordinator Integrated Marketing Name | Role | Phone | [...] | | | Unspecified | Kathy Feliciano NOTE KEEPER | MD Randell | | | | | essential | [address] [address] | [address] | | | | | hypertension | [address], | Ave | | | | | Type II or | [address] | [place], [place] | | | | | unspecified | [place], [place] | [address] | | | | | type | [address] | Phone: | | | | | diabetes | Phone: | [phone] | | | | | mellitus | [phone] | Fax: | | | | | without | Fax: | [phone] | | | | | mention of | [phone] | | | | | | complication [...] | 2015 | Visit | Preventive at [facility] | MD [address] | mellitus (HCC) | | | | [address] | [place], [place] | (Primary Dx) | | | | Mailcode: [facility] | [address] | | | | | [facility] | [phone] | | | | | and Healing, | | | | | | Building [address] | | | | | | [place], [place] | | | | | | [address] | | | | | | [phone] | | | +--------+---------+ + + + [...] [address] | | | | | | [place], [place] | | | | | | [address] | | | | | | [phone] | | | | | | | [...] [facility] | [address] | [place] [address] | | | SERVICES, [facility] | [address] | | | + + + + + HEMOGLOBIN A1C, BLOOD (08/28/2014 11:11 AM PST) + + + + + + | Component | Value | Ref Range | Performed | Pathologist | | | | | At | Signature | + + + + + + | HEMOGLOBIN | 5.3Comment: Hbg A1c | <5.7 % | [facility] | | | A1C [...] | + + + + + | [employer] | [address] | [place] [address] | | | SERVICES, SPECIAL | [address] [...]
--- OUTSIDE RECORDS SUMMARY | ~2019-12-02 | XMS | Encounter Summary ---
Demographics + + + | Address | [address] | | | [place] [address] | + + + | Home Phone [...] [place], [place] | | | | | [address] | | + + + + + | Ellie Vang | ECON | Unknown | | + + + + + Care Team Providers + +------+ + | Care Telegraphic Typewriter Installer Name | Role | Phone | [...] | | | | | | | [address] | | | | | | | [address] | | | | | | | [place], | | | | | | | [place] | | | | | | | [address] | | | | | | | Phone: | | | | | | | [phone] | | | | | | | Fax: | | | | | | | [phone] | +--------+--------+ + + + + Encounter Details +--------+---------+ + + + | Date | Type | Department | Care Team | Description | +--------+---------+ + + + | 04/14/ | Office | Digestive Health | Hernandez Brian, | Morbid obesity (HCC) | | 2013 | Visit | Center at [facility] [address] | [address] [facility] | (Primary Dx); Type | | | | [address] | [address] | 2 diabetes mellitus | | | | Mailcode: Center | [place], [place] | ([facility]); AMARA | | | | for Health and | [address] | (obstructive sleep | | | | [facility] 2 | [phone] | apnea); Edema | | | | [place], [place] | | | | | | [address] | | | | | | [phone] | | | +--------+---------+ + + + [...] this year, she was tr ansferred from [place] for surgical evaluation of possible incarcerated ventral [...] with close followup by her PCP in [place] in the interim. Dr. Guillory in [place] has been following her since January, with CT scan obtained at [facility] in [place] 02/09/2013 (images in IMPAX), demonstrating "recurrent hypogastric [...] follow up with her providers at [facility] to include a visi t to [...] r weight loss efforts. She saw a systems security consultant today and Melida came in to discuss [...] [address] | | | | | | [place], [place] | | | | | | [address] | | | | | | [phone] | | | | | | | [...]
--- OUTSIDE RECORDS SUMMARY | ~2019-12-02 | XMS | Encounter Summary ---
Demographics + + + | Address | [address] | | | [place] [address] | + + + | Home Phone [...] + | Katalina Padilla | ECON | [address] | | | | | [place], [place] | | | | | [address] | | + + + + + | Ellie Vang | ECON | Unknown | | + + + + + Care Team Providers + +------+ + | Care Slicer Machine Operator Name | Role | Phone [...] | | | | | | [place], [place] | | | | | | [address] | | | | | | [phone] | | | +--------+ + + + [...] 03/15/ | Office | Cardiology | Randell Farnks, | | | 2020 | Visit | | [address] | | | | | | [place], [place] | | | | | | [address] | | | | | | [phone] | | | | | | | | +--------+---------+ + + + documented as of this encounter Visit Diagnoses Not on filedocumented in this encounter"
--- OUTSIDE RECORDS SUMMARY | ~2019-12-02 | XMS | Encounter Summary ---
Demographics + + + | Address | [address] | | | [place] [address] | + + + | Home Phone [...] [place], [place] | | | | | [address] | | + + + + + | Ellie Vang | ECON | Unknown | | + + + + + Care Team Providers + +------+ + | Care Fire Support Man Name | Role | Phone | [...] | | [address] | Ave [place], [place] | (Primary Dx); | | | | Mailcode: Center | [address] | Ventral hernia | | | | for Health and | [phone] | without obstruction | | | | Healing, Building [address] | | or gangrene; Mixed | | | | [place], [place] | | hyperlipidemia; | | | | [address] | | 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[phone] | | type 2 without | | [...] is doing Refill oxycodone Rx +Take acid operations trainer for first 3 mos, then wean off [...] to POC and [facility] any issues. documented in this [...] times daily. , Disp: , Rfl: CALCIUM CRB&JHM-W0-YMC31-GENIS ORAL, Take 2 tablets by mouth two [...] History Narrative Updated 11/09/15 She lives in [place] with her mother and her sister (also her caregiver) lives in an apa rtment/duplex below. She has 2 grandchildren (age 4 and 7) who live with her daughter and son-in-law Her boyfriend lives in [place] HFpEF, DM2, HTN, Sleep Apnea (unable to [...] program here and refer her to our visual specialist who also has expertise in physical [...] Increase torsemide to pre-surgical dose +Take acid operations trainer for first 3 mos, then wean off [...] she will make an appointment with her Line Analyst to discuss insulin dosing and CBGs 10. [...] to POC and [facility] any issues. Start time 15:35, end time 15:55. I spent a total of 20 minutes face to face with this pat ient. Over 50% of visit was in counseling. ~ 10 minutes of additional time spent reviewing chart prior to visit and documenting after this visit. Ronna Clarke DNP ACNP WELLNESS CONSULTANT Bariatric Surgery Nurse Practitioner [facility] | [address] | [place], [place] | [address] | documented in this e ncounter Plan of Treatment +--------+---------+ + + + | Date | Type | Specialty | Care Team | Description | +--------+---------+ + + + | 03/15/ | Office | Cardiology | Randell Franks, | | | 2019 | Visit | | [address] | | | | | | [place], [place] | | | | | | [address] | | | | | | [phone] | | | | | | | [...] | | cells No organisms seen | [place] | + + + + + + + + | Performing | Address | City/State/Zipcode | Phone Number | | Organization | | | | + + + + + | [facility] | [address] | [place] [address] | | | [place] | | | | + + + [...]
--- OUTSIDE RECORDS SUMMARY | ~2019-12-02 | XMS | Encounter Summary ---
Demographics + + + | Address | [address] | | | [place] [address] | + + + | Home Phone [...] [place], [place] | | | | | [address] | | + + + + + | Ellie Vang | ECON | Unknown | | + + + + + Care Team Providers + +------+ + | Care Tank House Supervisor Name | Role | Phone [...] | Event | Medicine Clinic at | [place], [place] | | | | | [facility] | [address] | | | | | [address] | | | | | | Mail Code: OC8PM | | | | | | [facility] | | | | | | and Healing, | | | | | | Building [address] | | | | | | [place], [place] | | | | | | [address] | | | | | | [phone] | | | +--------+ + + + [...] [address] | | | | | | [place] | | | | | | [address] | | | | | | [phone] | | | | | | | | +--------+---------+ + + + documented as of this encounter Visit Diagnoses Not on filedocumented in this encounter"
--- OUTSIDE RECORDS SUMMARY | ~2019-12-02 | XMS | Encounter Summary ---
Demographics + + + | Address | [address] | | | [place] [address] | + + + | Home Phone [...] | Author | [facility] | | | and Jeffana | + + + | Organization | [facility] | | | and Jeffana [...] Team Providers + +------+ + | Care Planner Scheduler Name | Role | Phone | + +------+ + PCP | Unavailable | + +------+ + Encounter Details +--------+ + + + + | Date | Type | Department | Care Team | Description | +--------+ + + + + | 02/17/ | Orders Only | [facility] | Provider, | Pure | | 2019 | | SYSTEM GENERIC OP | MD [address] | hyperglyceridemia; | | | | CONVERSION [address] | [address] | Hypokalemia; | | | | [address] [place], [place] | [place] [address] | Dehydration; | | | | [address] | | Hyperuricemia | | | | [phone] | | without signs of | | [...] RICHEY | | | | | | [place] [address] | | | | | | [phone] | | | | | | | [...]
--- OUTSIDE RECORDS SUMMARY | ~2019-12-02 | XMS | Encounter Summary ---
Demographics + + + | Address | [address] | | | [place] [address] | + + + | Home Phone [...] [place], [place] | | | | | [address] | | + + + + + | Ellie Vang | ECON | Unknown | | + + + + + Care Team Providers + +------+ + | Care Circulation Crew Leader Name | Role | Phone [...] [address] | | | | | [place], [place] | [address] | | | 03/03/ | | [address] | [place], [place] | | | 2014 | | [phone] | [address] | | | | | | [phone] | | | | | | | [...] port site who was transferre d to [facility] for concern of an incarcerated [...] mouth once daily. , Historical Med CALCIUM CRB&ELM-M0-YJT19-GENIS ORAL Take 1 tablet by mouth two [...] Cardiology Preventive at [facility] [phone] Cardiology 04/09/2015 1:00 PM Egs Ppv Tra Trauma Emergency General Surgery at [facility] [phone] [facility] Outstanding labs/studies: None Discharging Physician: GABO LANGSTON MD Attending Physician: Dr. Cantu PCP: Fadi Goodrich DO Signed: GABO LANGSTON MD Pager #[phone] Surgical Case Worker [facility] Associated attestation - Tye Carrillo DO - 03/12/2015 9:12 AM PDTAttending: I discussed this patient with the resident and agree with the assessment and plan as outlin ed in this note and participated in the planning of care. Tye Carrillo DO, MBA, FACS Division of Trauma, Critical Care & Acute Care Surgery [facility] [phone] documented in this encounter Medications at Time of Discharge + + + +---------+--------+ + | Medication | Sig | Dispensed | Refills | Start | End Date | | | | | | Date | | + + + +---------+--------+ + | CALCIUM | Take 2 tablets by | | 0 | | | | CRB&RQK-I4-OBI61-GEN | mouth two times | | | [...] differ ent from the original. [facility] [place] DEPARTMENT OF SURGERY EMERGENCY GENERAL SURGERY Division [...] obesity with known ventral hernias transferred to [facility] for surgical managem ent of ventral hernia, now s/p repair. Post surgical pain: -patient ready for d/c, discussed f/u. Patient lives far away and has other appointments at [facility]. Will attempt to coordinate appointments. Discharge Plan: D/c today GABO LANGSTON MD Pager #[phone] Surgical Case Worker [facility] Salomón William Md - 03/02/2015 [...] and kn own ventral hernias transferred to [facility] for surgical treatment of suspected [...] obesity with known ventral hernias transferred to [facility] for surgical managem ent of [...] will be robel ing her home to [place], [place]. CALVIN ROMERO MD PGY-1 Anesthesiology Pager: [phone] Count Includes [facility] [place] A [address] [facility] [address] arthik Gonzalez MD - 03/02/2015 8:26 AM [id number] Calvin William Md - 03/01/2015 5:34 PM PDT Brief Post Operative Note: 40 F PMH morbid obesity (BMI 71 today), DM2, depression, GERD, h/o stroke at age 18, and kn own ventral hernias transferred to [facility] for surgical treatment of incarcerated [...] control CALVIN ROMERO MD PGY-1 Anesthesiology Pager: [phone] signed by Calvin Romero Md at 03/01/2015 5:41 PM PDTdocumente d in this encounter Plan of Treatment +--------+---------+ + + + | Date | Type | Specialty | Care Team | Description | +--------+---------+ + + + | 03/15/ | Office | Cardiology | Randell Franks, | | | 2019 | Visit | | [address] | | | | | | [place], [place] | | | | | | [address] | | | | | | [phone] | | | | | | | [...] | | Attending Surgeon: Shahid Cantu MD Hotel Recreational Facilities Manager(s): Howie Angeles MD, R5 | | [...] 03/02/2015 08:25:39DT: 03/02/2015 09:15:57Job #: | | [id number] | | | |Dr. Chris Cantu was present and scrubbed for the entirety of the case. | | | | | | | |Karthik Gonzalez MD | | | |Pursuant to federal Medicare and Medicaid regulations I was present for the entire procedur e. | | | | | | | |Shahid Cantu MD | |Business Process Consultant | |Trauma, Critical Care & Acute Care Surgery | | | | | | | |Shahid Cantu MD | |TBK/MODL | | | | | | /[id number] | + ---+ CAPILLARY BLOOD GLUCOSE (NO [...] AMES | [address] | [place], [place] | | | [facility] CARE | [address] | [address] | | | TESTS | | | [...] MARQUAM | [address] | [place], [place] | | | [facility] | [address] | [address] | | | TESTS | | | [...] MARQUAM | [address] | [place], [place] | | | [facility]INT OF CARE | [address] | [address] | | | TESTS | | | [...] AMES | [address] | [place], [place] | | | [facility]INT [facility]ARE | [address] | [address] | | | TESTS | | | [...] MARQUAM | [address] | [place], [place] | | | [facility]ARE | [address] | [address] | | | TESTS | | | [...] YAKOVAM | [address] | [place], [place] | | | [facility] OF [facility] | [address] | [address] | | | TESTS | | | [...] [facility] | [address] | [place] [address] | | | SERVICES, CORE | PARK [...] [facility] | [address] | [place] [address] | | | SERVICES, CORE | CLARENCE [...] MARQUAM | [address] | [place], [place] | | | [facility] [facility]INT OF CARE | [address] | [address] | | | TESTS | | | [...] MARQUAM | [address] | [place], [place] | | | [facility]INT OF CARE | [address] | [address] | | | TESTS | | | [...] + + + | NKECHI AMES | [address] | [place], [place] | | | [place] [facility]INT OF CARE | [address] | [address] | | | TESTS | | | [...] MARQUAM | [address] | [place], [place] | | | [facility] [facility]INT OF CARE | [address] | [address] | | | TESTS | | | [...] - [facility] | [address] | [place], [place] | | | [place] POINT OF CARE | [address] | [address] | | | TESTS | | | [...] [facility] | [address] | [place] [address] | | | SERVICES, CORE | CLARENCE [...] NKECHI AMES | [address] | [place], [place] | | | [facility]WN OF CARE | [address] | [address] | | | TESTS | | | [...] PDT | | | | | Starting [facility] 03/01/15 at 1056, | | | | | | | Until [facility] 03/01/15 at 1436, | | | | [...] | First dose on [facility] 03/01/15 at 0900, | | AM PDT [...] | | | | | dose on [facility] 03/01/15 at 0900, Until | | AM [...]
--- OUTSIDE RECORDS SUMMARY | ~2019-12-02 | XMS | Encounter Summary ---
Demographics + + + | Address | [address] | | | [place] [address] | + + + | Home Phone [...] [place], [place] | | | | | [address] | | + + + + + | Ellie Vang | ECON | Unknown | | + + + + + Care Team Providers + +------+ + | Care Inventory Transcriber Name | Role | Phone | + +------+ + | Fadi Goodrich DO | PCP | | + +------+ + Encounter Details +--------+---------+ + + + | Date | Type | Department | Care Team | Description | +--------+---------+ + + + | 02/22/ | Office | Preoperative | Gay Hoff, | Preop examination | | 2018 | Visit | [facility] at | DNP,ANP [address] | (Primary Dx) | | | | [facility]Note 2] | [address] | | | | | [address] | [place], [place] | | | | | Mail Code: OC8PM | [address] | | | | | [facility] | [phone] | | | | | and Healing, | | | | | | Building [address] | | | | | | [place], [place] | | | | | | [address] | | | | | | [phone] | | | +--------+---------+ + + + [...] [facility], ninth floor lobby Surgery Check in Time: [...] it is after office hours, call the [facility] make up operator at [phone] and ask them to page him or [...] d function per TTE ( 02/16/2017) from [facility] [employer]: Improved and stable. T2DM - controlled with [...] renal failure no electrolyte abnormalities no dialysis Urology/Desk Assistant: Within Defined Limits except as noted [...] mg by mouth two times daily. CALCIUM CRB&AHD-V8-BVN17-GENIS ORAL Take 2 tablets by mouth two [...] Dr. Andie Brian Incisional hernia repair 03/01/2015 [facility]/ Dr. Cantu. Primary fascial closure [...] 98ms, QTC 460ms, TTE ( 02/16/2017) - [employer] 1. Overall left ventricular systolic function is normal with, an EF between 60 - 65 %. 2. The right ventricle is normal in size and function. 3. No significant valvular abnormalities are noted. 4. In comparison to the previous (technically difficult) echocardiographic study done 01/01, no signfiicant changes are noted. TTE (02/17/2016) - [employer] Conclusions 1. There is normal left ventricular [...] and resp iratory change. TTE (11/07/2015) - [facility] Final Impressions: 1. The interpretation [...] d function per TTE ( 02/16/2017) form [facility]. Improved and stable. - Confirmed with [...] Advised to bring her own apparatus for [facility]. GERD - On omeprazole. Chronic [...] to this patient's care. Gay Hoff, ERENDIRA,ANP [facility] PREOPERATIVE MEDICINE CLINIC AT [facility] 4TH FLOOR [address] [facility] [address] I spent time (45 minutes, [...] [address] | | | | | | [place], [place] | | | | | | [address] | | | | | | [phone] | | | | | | | | +--------+---------+ + + + + + +--------+ + + | Name | Type | Priori | Associated Diagnoses | Order Schedule | | | | ty | | | + + +--------+ + + | COMMUNICATION TO [facility] | Procedures | Routin | Preop [...] + | [facility] | [address] [facility] [facility] [address] [facility] | [place] [address] | | | SERVICES, CORE | CLARENCE [...] [facility] | [address] | [place] [address] | | | SERVICES, | [address] [...] + | [facility] | [address] | [place] [address] | | | SERVICES, | [address] [...] [facility] | | considered for monitoring intermediate manager glycemic control in patients with: | LABORATORY [...] [facility] | [address] | [place] [address] | | | SERVICES, SPECIAL | PARK [...] | | | LABORATORY | | | VENEZUELAN | | | SERVICES, | | | [...] | [facility] | [address] | [place] [address] | | | LYDIA RANGEL | CLARENCE [...] DEPT OF | [address] | [place], [place] | | | CARDIOLOGY | [address] | [address] | | + + + + + documented in this encounter Visit Diagnoses + + | Diagnosis | + + | Preop examination - Primary Preoperative examination, unspecified | + + documented in this encounter
--- OUTSIDE RECORDS SUMMARY | ~2019-12-02 | XMS | Encounter Summary ---
Demographics + + + | Address | [address] | | | [place] [address] | + + + | Home Phone [...] [place], [place] | | | | | [address] | | + + + + + | Ellie Vang | ECON | Unknown | | + + + + + Care Team Providers + +------+ + | Care Fixed Income Manager Name | Role | Phone | [...] | | | | | | [place], [place] | | | | | | [address] | | | | | | [phone] | | | +--------+ + + + [...] [address] | | | | | | [place], [place] | | | | | | [address] | | | | | | [phone] | | | | | | | | +--------+---------+ + + + documented as of this encounter Visit Diagnoses Not on filedocumented in this encounter"
--- OUTSIDE RECORDS SUMMARY | ~2019-12-02 | XMS | Encounter Summary ---
Demographics + + + | Address | [address] | | | [place] [address] | + + + | Home Phone [...] [place], [place] | | | | | [address] | | + + + + + | Ellie Vang | ECON | Unknown | | + + + + + Care Team Providers + +------+ + | Care Gameplay Engineer Name | Role | Phone | + +------+ + | Kenyatta Cardenas MD | PCP | | + +------+ + Encounter Details +--------+ + + + + | Date | Type | Department | Care Team | Description | +--------+ + + + + | 06/06/ | Telephone | Digestive Health | Chilo | | | 2019 | | [facility] [address] | MD Jorje [address] | | | | | [address] | [address] | | | | | Mailcode: Center | [place], [place] | | | | | [facility] and | [address] | | | | | [facility] | [phone] | | | | | [place], [place] | | | | | | [address] | | | | | | [phone] | | | +--------+ + + + [...] | | | | | | [place], [place] | | | | | | [address] | | | | | | [phone] | | | | | | | | +--------+---------+ + + + documented as of this encounter Visit Diagnoses Not on filedocumented in this encounter"
--- OUTSIDE RECORDS SUMMARY | ~2019-12-02 | XMS | Encounter Summary ---
Demographics + + + | Address | [address] | | | [place] [address] | + + + | Home Phone [...] [place], [place] | | | | | [address] | | + + + + + [...] floor | | | | | | [place], [place] | | | | | | [address] | | | | | | [phone] | | | +--------+------+ + + + [...] [address] | | | | | | [place], [place] | | | | | | [address] | | | | | | [phone] | | | | | | | [...] + | [facility] | [address] [place] [facility] [facility] | [place] [address] | | | SERVICES, CORE | PARK [...] [facility] | [address] | [place] [address] | | | [address]ANG[address] | PARK [...] | + + + + + | [facility] | [address] | [place] [address] | | | SERVICES, SPECIAL | PARK [...]
--- OUTSIDE RECORDS SUMMARY | ~2019-12-02 | XMS | Encounter Summary ---
Demographics + + + | Address | [address] | | | [place] [address] | + + + | Home Phone [...] [place], [place] | | | | | [address] | | + + + + + | Ellie Vang | ECON | Unknown | | + + + + + Care Team Providers + +------+ + | Care Pcts Name | Role | Phone | + +------+ + | Kenyatta Cardenas MD | PCP | | + +------+ + Encounter Details +--------+ + + + + | Date | Type | Department | Care Team | Description | +--------+ + + + + | 05/03/ | Inside | N[facility]CHI DUMAS at [facility] | Ion Pandey, | | | 2018 | Referral | [facility] [address] | MD [address] | | | | Order | [address] Mailcode: | [place], [place] | | | | | [address] [place] [address] | [address] | | | | | Health and Healing, | [phone] | | | | | Building [address] | | | | | | [place], [place] | | | | | | [address] | | | | | | [phone] | | | +--------+ + + + [...] [place] | | | | | | [address] | | | | | | [phone] | | | | | | | [...]
--- OUTSIDE RECORDS SUMMARY | ~2019-12-02 | XMS | Encounter Summary ---
Demographics + + + | Address | [address] | | | [place] [address] | + + + | Home Phone [...] [place], [place] | | | | | [address] | | + + + + + | Ellie Vang | ECON | Unknown | | + + + + + Care Team Providers + +------+ + | Care Director Of Public Relations Name | Role | Phone | [...] | | | | | Procedures | [place], [place] | | | | | | TRANSTHORACI | [address] | | | | | | C | Phone: | | | | | | ECHOCARDIOGR | [phone] | | | | | | AM, ADULT | Fax: | | | | | | | [phone] | | +--------+--------+ + + + + [...] | 2016 | Visit | Preventive at [facility] | [address] | exertion) (Primary | | | | [address] | [place], [place] | Dx) | | | | Mailcode: CH9A | [address] | | | | | [facility] | [phone] | | | | | and Erick, | | | | | | [address] | | | | | | [place], [place] | | | | | | [address] | | | | | | [phone] | | | +--------+---------+ + + + [...] 500 mg by mouth once daily. CALCIUM CRB&KDW-Q5-YNU83-GENIS ORAL Take 1 tablet by mouth two [...] himself to the local hospit al in [place] and so this has been delayed. ROS: [...] to lose the additional weight requested by [facility] bariatric surgery [facility]. This current weight [...] [address] | | | | | | [place], [place] | | | | | | [address] | | | | | | [phone] | | | | | | | [...]
--- OUTSIDE RECORDS SUMMARY | ~2019-12-02 | XMS | Encounter Summary ---
Demographics + + + | Address | [address] | | | [place] [address] | + + + | Home Phone [...] + | Katalina Padilla | ECON | [address] | | | | | [place], [place] | | | | | [address] | | + + + + + | Ellie Vang | ECON | Unknown | | + + + + + Care Team Providers + +------+ + | Care Fur Glazer Name | Role | Phone | + [...] Floor | | | | | | [facility] and | [place], [place] | | | | | | Healing, | [address] | | | | | | Building [address] | Phone: | | | | | | [place], [place] | [phone] | | | | | | [address] | Fax: | | | | | | Phone: | [phone] | | | | | | [phone] | | | | | | | Fax: | | | | | | | [phone] | | +--------+--------+ + + + + [...] | | | without | SURGICAL | [facility] | | | | | mention of | CL[facility] [address] [place], | | | | | obstruction | [address] | [place] | | | | | or gangrene | AVE | [address] | | | | | | [place], | Phone: | | | | | | [place] [address] | [phone] | | | | | | Phone: | Fax: | | | | | | [phone] | [phone] | | | | | | Fax: | | | | | | | [phone] | | +--------+--------+ + + + + [...] | | | | [address] | [facility] | | | | | Mailcode: Center | [place], [place] | | | | | [facility] and | [address] | | | | | [facility], [facility] 2 | [phone] | | | | | [place], [place] | | | | | | [address] | | | | | | [phone] | | | +--------+---------+ + + + [...] coordination for [facility] Medicaid & [facility] Bariatric program for wt [...] material. 4. Continue to meet with her Fish Tender in the outpatient setting for diet and [...] has been instructed to f/u w/ her automatic steel tie adjuster for a strict diet of <1000 kcal/d [...] teaching. Howie Faria MD MIS/Bariatric Fellow, Pager [phone] [facility] Attending provider: Hernandez Brian MD documented in this en counter Plan of Treatment +--------+---------+ + + + | Date | Type | Specialty | Care Team | Description | +--------+---------+ + + + | 03/15/ | Office | Cardiology | Randell Franks, | | | 2019 | Visit | | [address] | | | | | | [place], [place] | | | | | | [address] | | | | | | [phone] | | | | | | | [...]
--- OUTSIDE RECORDS SUMMARY | ~2019-12-02 | XMS | Encounter Summary ---
Demographics + + + | Address | [address] | | | [place] [address] | + + + | Home Phone [...] [place], [place] | | | | | [address] | | + + + + + | Ellie Vang | ECON | Unknown | | + + + + + Care Team Providers + +------+ + | Care Logistics Management Specialist Name | Role | Phone [...] [address] Mailcode: | [place], [place] | | | | | [facility] | [address] | | | | | Health and Healing, | [phone] | | | | | [address] | | | | | | Floor [place], [place] | | | | | | [address] | | | | | | [phone] | | | +--------+ + + + [...] | | 0 | | | | [id number] | mouth two times | | | [...] [address] | | | | | | [place], [place] | | | | | | [address] | | | | | | [phone] | | | | | | | [...] + + + | EXAM: Esophagram with book publisher radiograph HISTORY: RYGB 03/01/2018, | [facility] | | vomiting/pain ever since COMPARISON: 04/27/2018 CT TECHNIQUE: | RADIOLOGY VOICE | | Crew Clerk radiograph was performed. Single contrast exam of the esophagus, | RECOGNITION 2 | | gastric pouch, and gastrojejunostomy in upright positioning. | | | Radiation dose reduction technique was maximized where appropriate | | | using pulsed fluoroscopy and fluoro-store images. Fluoro Time 57 | | | second(s) FINDINGS: Crew Clerk shows stone in the upper pole [...] AM PST EXAM: Esophagram | | with book publisher radiograph HISTORY: RYGB 03/01/2018, vomiting/pain ever since COMPARISON: | | 04/27/2018 CT TECHNIQUE: Crew Clerk radiograph was performed. Single contrast exam of the | | esophagus, gastric pouch, and gastrojejunostomy in upright positioning. Radiation dose | | reduction technique was maximized where appropriate using pulsed fluoroscopy and | | fluoro-store images. Fluoro Time 57 second(s) FINDINGS:Crew Clerk shows stone in the upper | [...]
--- OUTSIDE RECORDS SUMMARY | ~2019-12-02 | XMS | Encounter Summary ---
Demographics + + + | Address | [address] | | | [place] [address] | + + + | Home Phone [...] [place], [place] | | | | | [address] | | + + + + + | Ellie Vang | ECON | Unknown | | + + + + + Care Team Providers + +------+ + | Care Senior Portfolio Manager Name | Role | Phone | + +------+ + | Kenyatta Cardenas MD | PCP | | + +------+ + Encounter Details +--------+ + + + + | Date | Type | Department | Care Team | Description | +--------+ + + + + | 03/02/ | Dining Car Waiter/Waitress | Digestive Health | Keren Allen, | | | 2019 | | [facility] at [facility] [address] | AGACNP [address] | | | | | [address] | [address] [facility] [place] | | | | | Mailcode: [place] | [address] | | | | | for Health and | | | | | | [facility] 2 | | | | | | [place], [place] | | | | | | [address] | | | | | | | [...] [address] | | | | | | [place], [place] | | | | | | [address] | | | | | | [phone] | | | | | | | | +--------+---------+ + + + documented as of this encounter Visit Diagnoses Not on filedocumented in this encounter"
--- OUTSIDE RECORDS SUMMARY | ~2019-12-02 | XMS | Encounter Summary ---
Demographics + + + | Address | [address] | | | [place] [address] | + + + | Home Phone [...] + | Katalina Padilla | ECON | [address] | | | | | [place], [place] | | | | | [address] | | + + + + + | Ellie Vang | ECON | Unknown | | + + + + + Care Team Providers + +------+ + | Care Title Officer Name | Role | Phone | [...] | Pain | Diagnoses | T[place]gner, | Nutritional Assistant Psych | | | | Management | Morbid | Shereen Murcia ACNP | [facility] [address] | | | | | obesity with | [address] | | | | | BMI of [address] | Mailcode: | | | | | and over, | [place], [place] | [address] | | | | | adult ([facility]) | [address] | for Health | | | | | Procedures | Phone: | and Healing, | | | | | CONSULT TO | [phone] | Building [address], | | | | | PAIN | Fax: | 15th Floor | | | | | MANAGEMENT | [phone] | [place], [place] | | | | | [place] | | [address] | | | | | PSYCHIATRIC | | Phone: | | | | | DIAGNOSTIC | | [phone] | | | | | EVAL, NO MED | | Fax: | | | | | [facility] [place] | | [phone] | | | | | PSYCH TSTNG | | | | | | | PSYCH/PHYS | | | +--------+---------+ + + + + Encounter Details +--------+---------+ + + + | Date | Type | Department | Care Team | Description | +--------+---------+ + + + | 10/02/ | Office | [facility] at [facility] | Leslie Mistry, | Morbid obesity | | 2018 | Visit | [address] | PhD [address] | ([facility]); Bipolar | | | | Mailcode: 15P | Ryan Grace | affective disorder, | | | | [facility] | [place], [place] | remission status | | | | and Healing, | [address] | unspecified ([facility]); | | | | | [phone] | BMI 60.0-69.9, adult | | | | Floor [place], [place] | | ([facility]); Anxiety | | | | [address] | | | | | | [phone] | | | +--------+---------+ + + + [...] Name: Elzbieta Cristina : 1975 Medical Record: [id number] Age: 42 y.o. Weight today, per patient report: 305 lbs Weight on 09/11/17: 389, BMI 73.54 Identifying Information: Elzbieta Cristina is a 42 y.o. female who lives with her mother in [place], [place]. She was referred for psychological evaluation and counseling on diet and ex ercise prior to bariatric surgery. Informed consent and limits of confidentiality were disc ussed prior to the interview. Surgery interested in: nliesh en y gastric bypass Weight Loss History: [...] of cereal with skim milk and a french yogurt L: white bread and cheese and [...] laundry. For enjoym ent the patient watches [employer] with her girlfriend. She is socially active [...] Social History: Elzbieta Cristina was born in [place] and lived with her mother and sister. [...] time I spent was approximately 60 minutes hpbs-[id number]-lcki with the patient and approxima tely 2 hours of xus-ercj-tz-face testing, interpreting and synthesizing results. Leslie Mistry, PhD Clinical Psychologist [facility] [address] [facility] and [facility], [address] [place] [address] [phone] signed by Leslie Mistry, PhD at 10/08/2017 12:26 PM PDTdocume nted in this encounter Plan of Treatment +--------+---------+ + + + | Date | Type | Specialty | Care Team | Description | +--------+---------+ + + + | 03/15/ | Office | Cardiology | Randell Franks, | | | 2019 | Visit | | [address] | | | | | | [place], [place] | | | | | | [address] | | | | | | [phone] | | | | | | | [...]
--- OUTSIDE RECORDS SUMMARY | ~2019-12-02 | XMS | Encounter Summary ---
Demographics + + + | Address | [address] | | | [place] [address] | + + + | Home Phone [...] [place], [place] | | | | | [address] | | + + + + + [...] PRINCE Giles | | | | | [place], [place] | [address] | | | 11/12/ | | [address] | [place], [place] | | | 2012 | | [phone] | [address] | | | | | | [phone] | | | | | | | [...] yuriy tral hernia. She was transferred from [place] for surgical evaluation of possible incarcer ated [...] Cipro. POD 5 she was discharged ho mo, tolerating a diabetic diet. Having bowel function. [...] yuriy tral hernia. She was transferred from [place] for surgical evaluation of possible incarcer ated [...] Cipro. POD 5 she was discharged ho mo, tolerating a diabetic diet. Having bowel function. [...] keeping you from eating and drinking, Call [phone]. It is important to stay hydrated! If [...] taking narcotic that contain Tylenol (acetaminophen) Example: [place], Lortab, Vicodin, hydrocodone/APAP, Percocet, Tylenol #3 PAIN MEDICATIONS are ONLY REFILLED during CLINIC APPOINTMENTS. Please call [phone] to schedule an appointment. Your Follow-Up Plan Follow up with ROBIN MEJIA in 2 weeks. Contact information: [address] [facility] [address] Vitals on discharge: Ht 154.9 cm (5' [...] might be different f rom the original. [facility] DEPARTMENT OF SURGERY EMERGENCY [...] clinic - [place]. [place] [phone] pager number [facility] [phone] [facility] [address] Aminta Goodwin Md - 11/11/2012 7:40 AM PDT [facility] DEPARTMENT OF SURGERY EMERGENCY GENERAL SURGERY Division of Trauma and Critical Care Attending Physician: Andie Brian MD Progress Note Note Date: 11/11/2012 Admission Date: 11/06/2012 DYLAN ROMERO, [id number] Hospital Day #5 INTERVAL EVENTS none acute [...] mg, Rectal, DAILY PRN, Aminta Wilson MD esmvruonco-pocqvvttezews-fdjurjmz (aka FIORICET) 50-325-40 mg 1 Tab, 1 [...] Jayne Ponce MD, 1 mg at 11/10/12801 cbswpvjzqw-owbxxnwisoxks-vlqqiqqx (aka FIORICET) 50-325-40 mg 1 Tab, 1 [...] in preservative free NaCl 0.9% 50 mL ACETYLENE TORCH OPERATOR infusion, , Intravenous, KIESHA NUGRANT, Aracely [...] diet -add bowel regimen Acute pain -HM ACETYLENE TORCH OPERATOR, tylenol -convert to oral pain medication [...] Fluids: LR 125ml/hr Feeding: NPO Analgesia: Dilaudid ACETYLENE TORCH OPERATOR Sedation: not indicated Thromboprophylaxis: enoxaparin Head [...] Ponce MD, 1 mg at 11/09/12 0855 gahictozoi-qcsijonkrtjeq-awkblefo (aka FIORICET) 50-325-40 mg 1 Tab, 1 Tab, Oral, Q4H PRN, Kaleb Walker NP, 1 Tab at 11/09/12 0443 dextrose IV 25 mL, 25 mL, Intravenous, PRN, Danny Lagos MD enoxaparin (aka LOVENOX) injection 30 mg, 30 mg, Subcutaneous, Q12H (Scheduled), Aracely zhu DO, 30 mg at 11/09/12 0857 famotidine in NS (aka PEPCID) IV 20 mg, 20 mg, Intravenous, Q12H (Scheduled), aDnny solis MD, Last Rate: 200 mL/hr at [...] in preservative free NaCl 0.9% 50 mL ACETYLENE TORCH OPERATOR infusion, , Intravenous, KIESHA NUOUS, Aracely Cruzo, [...] drainage <30ml for 24hrs Acute pain -HM ACETYLENE TORCH OPERATOR, tylenol Diabetes: -insulin gtt not started [...] Fluids: LR 125ml/hr Feeding: NPO Analgesia: Dilaudid ACETYLENE TORCH OPERATOR Sedation: not indicated Thromboprophylaxis: enoxaparin Head of bed: > 30 Ulcer prophylaxis: pepcid Glycemic control: adequate Activity/PT/OT: Ongoing Yogurt: ABX on Probiotics:yes AMINTA WILSON MD General Surgery, R1 Kaleb Martin N P - 11/08/2012 8:49 AM PDT [facility] DEPARTMENT OF SURGERY EMERGENCY GENERAL SURGERY Division of Trauma and Critical Care Attending Physician: Andie Brian MD Progress Note Note Date: 11/08/2012 Admission Date: 11/06/2012 DYLAN ROMERO, [id number] Hospital Day #2 INTERVAL EVENTS NO SUBJECTIVE Pain well controlled; has headache attributed to dilaudid ACETYLENE TORCH OPERATOR Tylenol did not help. Flatus: YES [...] trials today. -DC ruiz Acute pain -HM ACETYLENE TORCH OPERATOR, tylenol Diabetes: -insulin gtt not started [...] Fluids: LR 125ml/hr Feeding: NPO Analgesia: Dilaudid ACETYLENE TORCH OPERATOR Sedation: not indicated Thromboprophylaxis: enoxaparin Head of bed: > 30 Ulcer prophylaxis: pepcid Glycemic control: adequate Activity/PT/OT: Ongoing Yogurt: ABX on Probiotics: No KALEB WALKER NP [facility] [address] [place] [address] elvin [place] MD - 11/07/2012 9:51 PM [...] 7.33* PCO2 49* PO2 113* HCO3 25 SVHIC5RSE 26 U9PCGKBS 98.3* R9LWBFYFB -- FIO2 60 ABGEXCESS -0.9 Assessment, Medical Decision Making and Plan 1. Incarcerated hernia, now s/p repair and panniculectomy -Binder, pain control, minimize nausea and coughing PRN. -NG clamping trials today. 2. Acute pain -HM ACETYLENE TORCH OPERATOR, tylenol 3. Diabetes: -insulin gtt 4. [...] Dione Grimes MD R-2, General Surgery Pager: [phone] [facility] [place] Department of Surgery Trauma ICU Team Pager (24hrs/day): [phone] I was present with the resident during the history and exam. I discussed the case with the resident and agree with the findings and plan as documented in the resident s note. KELVIN STEPHENS MD [facility] [address] [facility] [place] [address] [id number] uOnru patton MD - 11/07/2012 2:37 AM [...] in preservative free NaCl 0.9% 50 mL ACETYLENE TORCH OPERATOR infusion Intravenous CON TINUOUS Aracely Flores, [...] POD#1 s/p primary repair. 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 elevator inspector and prn tylenol, continue prozac and zyprexa [...] F: probable remain NPO today A: dilaudid elevator inspector, prn tylenol S: prn benzos as she is at home T: will start prophylactic lovenox today H: HOB >30 degrees U: pepcid G: insulin gtt ONUR ALLEN MD, PGY3 [facility] [address] [id number] [place] [address] Onelia Shrestha MD - 11/06/2012 8:41 AM PDT [facility] DEPARTMENT OF SURGERY Division of Trauma and Critical Care Emergency General Surgery / Acute Care Surgery Attending Physician: Andie Brian MD Note Date: 11/06/2012 Admission Date: 11/06/2012 DYLAN ROMERO, [id number] Hospital Day #0 OVERNIGHT EVENTS: anxious SUBJECTIVE: [...] zenia LABS: reviewed and are available in [facility] (if new data) IMAGING: VASCULAR: IMPRESSION: Dylan [...] Flannery | | | | | | [place], [place] | | | | | | [address] | | | | | | [phone] | | | | | | | [...] Mae | | | | | | [place] | | | | + + + [...] MARQUAM | [address] | [place], [place] | | | [facility]ARE | [address] | [address] | | | TESTS | | | [...] AMES | [address] | [place], [place] | | | [facility] [facility]ARE | [address] | [address] | | | TESTS | | | [...] | + + + + + | [facility] | [address] | [place] [address] | | | SERVICES, CORE | CLARENCE [...] MDRD equation recommended by the | [facility] | | National Kidney Disease Education Program. [...] + | [facility] | [address] | [place] [address] | | | SERVICES, CORE | PARK [...] | [facility] | [address] | [place] [address] | | | SERVICES, CORE | CLARENCE [...] + + + | [facility] AMES | [address] | [place], [place] | | | [place] [facility] | [address] | [address] | | | TESTS | | | [...] MARQUAM | [address] | [place], [place] | | | [facility] | [address] | [address] | | | TESTS | | | [...] - MARQUAM | [address] | [place] | | | [place] [facility] | [address] | [address] | | | TESTS | | | [...] + + + | [facility] AMES | [address] | [place] | | | [facility] [facility] | [address] | [address] | | | TESTS | | | [...] MARQUAM | [address] | [place], [place] | | | [facility] [facility]ARE | [address] | [address] | | | TESTS | | | [...] [facility] | [address] | [place] [address] | | | SERVICES, CORE | PARK [...] [facility] | [address] [facility] | [place] [address] | | | SERVICES, CORE | [address] | | | + + + + + MAGNESIUM, PLASMA (11/11/2012 3:38 AM PDT) + +---------+ + + + | Component | Value | Ref Range | Performed | Pathologist | | | | | At | Signature | + +---------+ + + + | MAGNESIUM,P | 1.5 (L) | 1.8 - 2.5 mg/dL | [facility] | | | LASMA | | | [...] + | [facility] | [address] [facility] | [place] [address] | | | SERVICES, CORE | PARK [...] KWAKU | [address] | [place], [place] | | | [facility] JAKY | [facility] | [address] | | | TESTS | | | | + + + + + CAPILLARY BLOOD GLUCOSE (NO CHG), POC (11/10/2012 4:27 PM PDT) + +-------+ + + + | Component | Value | Ref Range | Performed | Pathologist | | | | | At | Signature | + +-------+ + + + | BLOOD | 90 | 60 - 99 mg/dL | [facility] [...] KWAKU | [address] | [place] | | | [facility] [facility]ARE | [address] | [address] | | | TESTS | | | [...] AMES | [address] | [place], [place] | | | [facility]ARE | [facility] | [address] | | | TESTS | | | [...] YAKOVAM | [address] | [place] | | | [facility] CARE | [facility] | [address] | | | TESTS | | | | + + + + + CAPILLARY BLOOD GLUCOSE (NO CHG), POC (11/10/2012 5:56 AM PDT) + +-------+ + + + | Component | Value | Ref Range | Performed | Pathologist | | | | | At | Signature | + +-------+ + + + | BLOOD | 90 | 60 - 99 mg/dL | [facility] [...] KWAKU | [address] | [place], [place] | | | [facility] | [address] | [address] | | | TESTS | | | [...] [facility] | [address] | [place] [address] | | | SERVICES, CORE | PARK [...] the MDRD equation recommended by the | [facility] | | National Kidney Disease Education Program. [...] + | [facility] | [address] | [place] [address] | | | LYDIA RANGEL | CLARENCE [...] | [facility] | [address] | [place] [address] | | | SERVICES, CORE | CLARENCE [...] 92 | 60 - 99 mg/dL | [facility] [...] AMES | [address] | [place] | | | [facility] CARE | [address] | [address] | | | TESTS | | | [...] YAKOVAM | [address] | [place] | | | [facility] CARE | [address] | [address] | | | TESTS | | | [...] AMES | [address] | [place], [place] | | | [facility] CARE | [facility] | [address] | | | TESTS | | | [...] | | | Final CULTURE | | [place] | | | | RESULT:>100,000 cfu/ml | [...] + | [facility] | [address] | [place] [address] | | | [facility] | | | | + + [...] | [facility] | [address] | [place] [address] | | | SERVICES, CORE | PARK [...] [facility] | [address] | [place] [address] | | | SERVICES, CORE | PARK [...] KWAKU | [address] | [place] | | | [facility]ARE | [address] | [address] | | | TESTS | | | [...] [place] | [address] | [place] [address] | | | SERVICES, CORE | PARK [...] [facility] [place] | [address] | [place] [address] | | | SERVICES, CORE | CLARENCE [...] [facility] | [address] | [place] [address] | | | LYDIA RANGEL | CLARENCE [...] MARPATAM | [address] | [place], [place] | | | [facility]ARE | [address] | [address] | | | TESTS | | | [...] AMES | [address] | [place] | | | [facility] CARE | [facility] | [address] | | | TESTS | | | [...] KWAKU | [address] | [place], [place] | | | [facility] | [address] | [address] | | | TESTS | | | [...] [facility] | [address] | [place] [address] | | | SERVICES, CORE | PARK [...] [facility] | [address] | [place] [address] | | | SERVICES, CORE | PARK [...] + + + + | [facility] | [address] [facility] | [place] [address] | | | SERVICES, CORE | PARK [...] MARQUAM | [address] | [place] | | | [facility] | [address] | [address] | | | TESTS | | | [...] - MARQU[facility] | [address] | [place], [place] | | | [facility]ARE | [address] | [address] | | | TESTS | | | [...] + + + | [facility] | [address] | [place] | | | [facility] | [address] | [address] | | | TESTS | | | [...] [facility] [place] | [address] | [place] [address] | | | SERVICES, CORE | CLARENCE [...] | [facility] | [address] | [place] [address] | | | CLAIRE, LYDIA | CLARENCE [...] | + + + + + | [facility] | [address] | [place] [address] | | | SERVICES, CORE | [address] | | | + + + + + X-RAY PORTABLE CHEST 1 VIEW (11/06/2012 4:46 PM PDT) + + + + + + | Component | Value | Ref Range | Performed | Pathologist | | | | | At | Signature | + + + + + + | X-RAY | STUDY: MA CHEST 1 VIEW | | | | | PORTABLE | 11/06/12 16:46:00 | | | | | CHEST 1 | INDICATION: Right upper | | | | | VIEW | lobe opacity. | | | | | | COMPARISON: Earlier same | | | | | | day a STUDY: MA CHEST 1 | | | | | [...] + + + | X-RAY | STUDY: MA CHEST 1 VIEW | | | | [...] [facility] | [address] [facility] | [place] [address] | | | SERVICES, CORE | CLARENCE [...] [facility] | [address] | [place] [address] | | | SERVICES, CORE | PARK [...] | [facility] | [address] | [place] [address] | | | SERVICES, CORE | CLARENCE [...] AMES | [address] | [place] | | | [facility] CARE | [address] | [address] | | | TESTS | | | [...] AMES | [address] | [place] | | | [facility] CARE | [address] | [address] | | | TESTS | | | [...] MARQUAM | [address] | [place], [place] | | | [facility] CARE | [address] | [address] | | | TESTS | | | [...] KW[facility] | [address] | [place], [place] | | | [facility] CARE | [address] | [address] | | | TESTS | | | [...] AMES | [address] | [place] | | | [facility] CARE | [facility] | [address] | | | TESTS | | | [...] KWAK[facility] | [address] | [place], [place] | | | [facility] | [address] | [address] | | | TESTS | | | [...] [facility] | [address] | [place], [place] | | | [facility] CARE | [facility] | [address] | | | TESTS | | | [...] AMES | [address] | [place] | | | [facility] [facility] CARE | [address] | [address] | | | TESTS | | | [...] KWAK[facility] | [address] | [place] | | | [facility] | [address] | [address] | | | TESTS | | | [...] MARQU[facility] | [address] | [place], [place] | | | [facility] CARE | [address] | [address] | | | TESTS | | | [...] AMES | [address] | [place] | | | [facility] CARE | [address] | [address] | | | TESTS | | | [...] [facility] | [address] | [place] [address] | | | CLAIRE, | [address] [...] KW[facility] | [address] | [place] | | | [facility] OF CARE | [address] | [address] | | | TESTS | | | [...] [facility] | [address] | [place] [address] | | | SERVICES, | [address] [...] [facility] | [address] | [place] [address] | | | SERVICES, | [address] [...] [facility] [place] | [address] | [place] [address] | | | SERVICES, CORE | CLARENCE [...] [facility] | [address] | [place] [address] | | | SERVICES, CORE | CLARENCE [...] [facility] | [address] | [place] [address] | | | SERVICES, CORE | [address] | | | + + + + + INR (11/06/2012 6:28 AM PDT) + +-------+ + + + | Component | Value | Ref Range | Performed | Pathologist | | | | | At | Signature | + +-------+ + + + | INR | 1.13 | 0.90 - 1.20 INR | [facility] | | | | | | LABORATORY [...] [facility] | [address] | [place] [address] | | | SERVICES, CORE | PARK [...] MDRD equation recommended by the | [facility] | | National Kidney Disease Education Program. [...] + | [facility] | [address] | [place] [address] | | | LYDIA RANGEL | CLARENCE [...] view image for the detailed interpretation from Bridge results. | CARDIOLOGY | + + + + + + + + | Performing | Address | City/State/Zipcode | Phone Number | | Organization | | | | + + + + + | [facility] | [address] | [place], [place] | | | CARDIOLOGY | [address] | [address] | | + + + + + [...] [facility] | [address] | [place] [address] | | | SERVICES, CORE | PARK [...] | + + + + + | [facility] | [address] | [place] [address] | | | CLAIRE, LYDIA | CLARENCE [...] | 1 tablet | | | | qzlrhglpme-gwykepkvwxwwg-uxlkeidf | | 13 8:02 | | | [...] 13 7:36 | | | | | ACETYLENE TORCH OPERATOR infusion intravenous, | | PM PDT [...]
--- OUTSIDE RECORDS SUMMARY | ~2019-12-02 | XMS | Encounter Summary ---
Demographics + + + | Address | [address] | | | [place] [address] | + + + | Home Phone [...] [place], [place] | | | | | [address] | | + + + + + | Ellie Vang | ECON | Unknown | | + + + + + Care Team Providers + +------+ + | Care Fisher Eel Name | Role | Phone | + [...] | | | | Jacy Flannery | [facility] | | | | | Mailcode: [place] | [place], [place] | | | | | [facility] and | [address] | | | | | [facility] | [phone] | | | | | [place], [place] | | | | | | [address] | | | | | | [phone] | | | +--------+ + + + [...] Flannery | | | | | | [place], [place] | | | | | | [address] | | | | | | [phone] | | | | | | | | +--------+---------+ + + + documented as of this encounter Visit Diagnoses Not on filedocumented in this encounter"
--- OUTSIDE RECORDS SUMMARY | ~2019-12-02 | XMS | Encounter Summary ---
Demographics + + + | Address | [address] | | | [place] [address] | + + + | Home Phone [...] [place], [place] | | | | | [address] | | + + + + + | Ellie Vang | ECON | Unknown | | + + + + + Care Team Providers + +------+ + | Care L D Rn Name | Role | Phone | [...] Flannery | | | | | | [place], [place] | | | | | | [address] | | | | | | [phone] | | | | | | | | +--------+---------+ + + + documented as of this encounter Visit Diagnoses Not on filedocumented in this encounter"
--- OUTSIDE RECORDS SUMMARY | ~2019-12-02 | XMS | Encounter Summary ---
Demographics + + + | Address | [address] | | | [place] [address] | + + + | Home Phone [...] [place], [place] | | | | | [address] | | + + + + + | Ellie Vang | ECON | Unknown | | + + + + + Care Team Providers + +------+ + | Care Manager Inventory Management Name | Role | Phone | [...] | | 2016 | | Preventive at [facility] | MD [address] | | | | | [address] | [place], [place] | | | | | Mailcode: CH9A | [address] | | | | | [facility] | [phone] | | | | | and Healing, | | | | | | [address] | | | | | | [facility] [place] | | | | | | [address] | | | | | | [phone] | | | +--------+ + + + [...] Flannery | | | | | | [place], [place] | | | | | | [address] | | | | | | [phone] | | | | | | | | +--------+---------+ + + + documented as of this encounter Visit Diagnoses Not on filedocumented in this encounter"
--- OUTSIDE RECORDS SUMMARY | ~2019-12-02 | XMS | Encounter Summary ---
Demographics + + + | Address | [address] | | | [place] [address] | + + + | Home Phone [...] [place], [place] | | | | | [address] | | + + + + + | Ellie Vang | ECON | Unknown | | + + + + + Care Team Providers + +------+ + | Care Acid Etch Operator Name | Role | Phone | [...] | | | | | essential | [address] | [address] | | | | | hypertension | [address], | Ave | | | | | Type II or | [address] | [place], [place] | | | | | unspecified | [place], [place] | [address] | | | | | type | [address] | Phone: | | | | | diabetes | Phone: | [phone] | | | | | mellitus | [phone] | Fax: | | | | | without | Fax: | [phone] | | | | | mention of | [phone] | | | | | | complication [...] | 2013 | Visit | Preventive at [facility] | MD [address] | mellitus (HCC) | | | | [address] | [place], [place] | (Primary Dx); | | | | Mailcode: 9A | [address] | Migraine headache | | | | [facility] | [phone] | | | | | and E[place], | | | | | | [address] | | | | | | [place], [place] | | | | | | [address] | | | | | | [phone] | | | +--------+---------+ + + + [...] she is hypothyroid and put her on [place] Thyroid hormone replacement therapy. Her heart rate [...] [place] | | | | | | [address] | | | | | | [phone] | | | | | | | [...] [facility] | [address] | [place] [address] | | | SERVICES, SPECIAL | PARK [...]
--- OUTSIDE RECORDS SUMMARY | ~2019-12-02 | XMS | Encounter Summary ---
Demographics + + + | Address | [address] | | | [place] [address] | + + + | Home Phone [...] [place], [place] | | | | | [address] | | + + + + + | Ellie Vang | ECON | Unknown | | + + + + + Care Team Providers + +------+ + | Care Mat Inspector Name | Role | Phone | [...] | | | Unspecified | Kathy Feliciano CASE ASSISTANT | MD Randell | | | | | essential | [address] | [address] | | | | | hypertension | [address], | Ave | | | | | Type II or | [address] | [place], [place] | | | | | unspecified | [place], [place] | [address] | | | | | type | [address] | Phone: | | | | | diabetes | Phone: | [phone] | | | | | mellitus | [phone] | Fax: | | | | | without | Fax: | [phone] | | | | | mention of | [phone] | | | | | | complication [...] | 2015 | Visit | Preventive at [facility] | MD [address] | mellitus (HCC) | | | | [address] | [place], [place] | (Primary Dx) | | | | Mailcode: [facility] | [address] | | | | | [facility] | [phone] | | | | | and Healing, | | | | | | [address] | | | | | | [place], [place] | | | | | | [address] | | | | | | [phone] | | | +--------+---------+ + + + [...] [place] | | | | | | [address] | | | | | | [phone] | | | | | | | [...] [facility] | [address] | [place] [address] | | | SERVICES, [facility] | [address] | | | + + + + + HEMOGLOBIN A1C, BLOOD (08/28/2014 11:11 AM PST) + + + + + + | Component | Value | Ref Range | Performed | Pathologist | | | | | At | Signature | + + + + + + | HEMOGLOBIN | 5.3Comment: Hbg A1c | <5.7 % | [facility] | | | A1C | Interpretive [...] | + + + + + | [facility] | [address] | [place] [address] | | | SERVICES, SPECIAL | [address] [...]
--- OUTSIDE RECORDS SUMMARY | ~2019-12-02 | XMS | Encounter Summary ---
Demographics + + + | Address | [address] | | | [place] [address] | + + + | Home Phone [...] [place], [place] | | | | | [address] | | + + + + + | Ellie Vang | ECON | Unknown | | + + + + + Care Team Providers + +------+ + | Care Production Crew Supervisor Name | Role | Phone [...] | REPAIR | | | | [facility] | [address] | | | | | Hospital Admitting | [place], [place] | | | | | Des Located on the | [address] | | | | | 9th floor | [phone] | | | | | [place], [place] | | | | | | [address] | | | +--------+---------+ + + + [...] port site who was transferre d to [facility] for concern of an incarcerated hernia. [...] mouth once daily. , Historical Med CALCIUM CRB&[id number]-O7-DYE52-GENIS ORAL Take 1 tablet by mouth two [...] Cardiology Preventive at [facility] [phone] Cardiology 04/09/2015 1:00 PM Egs Ppv Tra Trauma Emergency General Surgery at [facility] [phone] [facility] Outstanding labs/studies: None Discharging Physician: GABO LANGSTON MD Attending Physician: Dr. Cantu PCP: Fadi Goodrich DO Signed: GABO LANGSTON MD Pager #[phone] Surgical Strong Nitric Operator [facility] Associated attestation - Tye Carrillo DO - 03/12/2015 9:12 AM PDTAttending: I discussed this patient with the resident and agree with the assessment and plan as outlin ed in this note and participated in the planning of care. Tye Carrillo DO, SIDRA, FACS Division of Trauma, Critical Care & Acute Care Surgery [facility] [phone] documented in this encounter Medications at Time of Discharge + + + +---------+--------+ + | Medication | Sig | Dispensed | Refills | Start | End Date | | | | | | Date | | + + + +---------+--------+ + | CALCIUM | Take 2 tablets by | | 0 | | | | CRB&NWI-N6-BIN51-GEN | mouth two times | | | [...] might be differ ent from the original. [facility] DEPART[facility] OF SURGERY EMERGENCY GENERAL SURGERY Division [...] obesity with known ventral hernias transferred to [facility] for surgical managem ent of ventral hernia, now s/p repair. Post surgical pain: -patient ready for d/c, discussed f/u. Patient lives far away and has other appointments at [facility]. Will attempt to coordinate appointments. Discharge Plan: D/c today GABO LANGSTON MD Pager #[phone] Surgical Strong Nitric Operator [facility] Salomón William Md - 03/02/2015 1:12 PM PDT [facility] DEPARTMENT OF SURGERY EMERGENCY GENERAL SURGERY Division of Trauma and Critical Care Attending Physician: Shahid Cantu MD Progress Note Note Date: 03/02/2015 Admission Date: 2015 DYLAN ROMERO, Hospital Day #2 40 F PMH morbid obesity (BMI 71 today), DM2, depression, GERD, h/o stroke at age 18, and kn own ventral hernias transferred to [facility] for surgical treatment of suspected incarcerated [...] obesity with known ventral hernias transferred to [facility] for surgical managem ent of ventral [...] will be robel ing her home to [place], [place]. CALVIN ROMERO MD PGY-1 Anesthesiology Pager: [phone] [facility] A [address] [facility] [address] Karthik Oneill MD - 03/02/2015 8:26 AM [id number] Calvin William Md - 03/01/2015 5:34 PM PDT Brief Post Operative Note: 40 F PMH morbid obesity (BMI 71 today), DM2, depression, GERD, h/o stroke at age 18, and kn own ventral hernias transferred to [facility] for surgical treatment of incarcerated ventral [...] control CALVIN ROMERO MD PGY-1 Anesthesiology Pager: [phone] signed by Calvin Romero Md at 03/01/2015 5:41 PM PDTdocumente d in this encounter Plan of Treatment +--------+---------+ + + + | Date | Type | Specialty | Care Team | Description | +--------+---------+ + + + | 03/15/ | Office | Cardiology | Randell Franks, | | | 2019 | Visit | | [address] | | | | | | [place], [place] | | | | | | [address] | | | | | | [phone] | | | | | | | [...] | | Attending Surgeon: Shahid Cantu MD Putty Remover(s): Howie Angeles MD, R5 | | Karthik [...] 03/02/2015 08:25:39DT: 03/02/2015 09:15:57Job #: | | [id number] | | | |Dr. Chris Cantu was present and scrubbed for the entirety of the case. | | | | | | | |Karthik Gonzalez MD | | | |Pursuant to federal Medicare and Medicaid regulations I was present for the entire procedur e. | | | | | | | |Shahid Cantu MD | |Cd Manufacturing Supervisor | |Trauma, Critical Care & Acute Care Surgery | | | | | | | |Shahid Cantu MD | |TBK/MODL | | | | | | /[id number] | + ---+ CAPILLARY BLOOD GLUCOSE (NO [...] AMES | [address] | [place], [place] | | | [facility] | [address] | [address] | | | TESTS | | | [...] MARQUAM | [address] | [place], [place] | | | [facility] CARE | [address] | [address] | | | TESTS | | | [...] | | [facility]ARE | [address] | [address] | | | TESTS | | | [...] AMES | [address] | [place], [place] | | | [facility] | [address] | [address] | | | TESTS | | | [...] MARQUAM | [address] | [place], [place] | | | [facility] CARE | [address] | [address] | | | TESTS | | | [...] | | [facility]INT [facility] CARE | [address] | [address] | | | TESTS | | | [...] | [address] | [place] [address] | | | SERVICES, CORE | CLARENCE [...] | | | LABORATORY | | | MARSHALLESE | | | SERVICES, | | | [...] + | [facility] | [address] [facility] | [place] [address] | | | CLAIRE, LYDIA | CLARENCE [...] MARQUAM | [address] | [place], [place] | | | [place], POINT OF CARE | [address] | [address] | | | TESTS | | | [...] MARQUAM | [address] | [place], [place] | | | [facility] | [facility] | [address] | | | TESTS | | | [...] AMES | [address] | [place], [place] | | | [place] POINT OF CARE | [address] | [address] | | | TESTS | | | [...] MARQUAM | [address] | [place], [place] | | | [facility] CARE | [facility] | [address] | | | TESTS | | | [...] MARPATAM | [address] | [place], [place] | | | [facility] OF [facility] | [address] | [address] | | | TESTS | | | [...] CENTER LABORATORY | [address] | [place] [address] | | | LYDIA RANGEL | CLARENCE [...] (H) | 60 - 99 mg/dL | [facility] [...] [place] | | | [facility] | [address] | [address] | | | TESTS | | | [...] | | | | | PRN, Starting [facility] 03/01/15 at 1143, | | | | | | | Until [facility] 03/01/15 at 1207 | | | | | | + +--------+ +-------+------+ + +---+---+ | | | +---+---+ documented in this encounter
--- OUTSIDE RECORDS SUMMARY | ~2019-12-02 | XMS | Encounter Summary ---
Demographics + + + | Address | [address] | | | [place] [address] | + + + | Home Phone [...] [place], [place] | | | | | [address] | | + + + + + | Ellie Vang | ECON | Unknown | | + + + + + Care Team Providers + +------+ + | Care Publisher Assistant Name | Role | Phone | [...] Center at [facility] [address] | AGACNP [address] | | | | | [address] | [place], [place] | | | | | Mailcode: [place] | [address] | | | | | for [facility] and | | | | | | [place] [address] | | | | | | [place], [place] | | | | | | [address] | | | | | | | [...] [address]ann[address] | | | | | | [place] | | | | | | [address] | | | | | | [phone] | | | | | | | | +--------+---------+ + + + documented as of this encounter Visit Diagnoses Not on filedocumented in this encounter"
--- OUTSIDE RECORDS SUMMARY | ~2019-12-02 | XMS | Encounter Summary ---
Demographics + + + | Address | [address] | | | [place] [address] | + + + | Home Phone [...] [place], [place] | | | | | [address] | | + + + + + | Ellie Vang | ECON | Unknown | | + + + + + Care Team Providers + +------+ + | Care Vaccine Customer Representative Name | Role | Phone | [...] | | Alma Delia Mailcode: CH4S | [facility] | | | | | [facility] | [place], [place] | | | | | and Healing, | [address] | | | | | [place] [address] [facility] | [phone] | | | | | Floor [place], [place] | | | | | | [address] | | | | | | [phone] | | | +--------+ + + + [...] | | 2019 | Visit | | [address] | | | | | | [place], [place] | | | | | | [address] | | | | | | [phone] | | | | | | | | +--------+---------+ + + + documented as of this encounter Visit Diagnoses Not on filedocumented in this encounter"
--- OUTSIDE RECORDS SUMMARY | ~2019-12-02 | XMS | Encounter Summary ---
Demographics + + + | Address | [address] | | | [place] [address] | + + + | Home Phone [...] [place], [place] | | | | | [address] | | + + + + + [...] | 11/20/ | Lab | Laboratory at [facility] | | Morbid obesity with | | 2017 | | [address] | | BMI of 70 and over, | | | | [place], [place] | | adult ([facility]); | | | | [address] | | 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[phone] | | 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 ([facility]); [...] Flannery | | | | | | [place], [place] | | | | | | [address] | | | | | | [phone] | | | | | | | [...] | + + + + + | [facility] | [address] | [place] [address] | | | SERVICES, [place] [facility] | | | | | HEALTH [...] [facility] | [address] | [place], [place] | | | SERVICES, LIPID | [address] | [address] | | + + + + + [...] | [facility] | | considered for monitoring manager terminal glycemic control in patients with: | [...] + + + + + | [facility] | [address] | [place] [address] | | | SERVICES, SPECIAL | CLARENCE [...] INTERPRETIVE | 70 - 180 nmol/L | [facility] | | | WHOLE | INFORMATION: Vitamin [...] | | | | | determined by [facility] | | | | | | Laboratories. See | | | | | | Compliance Statement B: | | | | | | Nuenz/CSPerformed | | | | | | by [employer],[address] | | | | | | [facility] | | | | | | [address] | | | | | | [phone].Pcsso. | | | | | | comIsmael [...] [facility] | [address] | [place], [place] | | | [facility] | | [address] | | + + + + + [...] | | | LABORATORY | | | MALAWIAN | | | SERVICES, | | | [...] + + + + + | [facility] | [address] | [place] [address] | | | SERVICES, CORE | CLARENCE [...] [facility] | [address] | [place] [address] | | | SERVICES, CORE | [address] [...] [facility] | [address] | [place] [address] | | | SERVICES, CORE | CLARENCE [...] [facility] | [address] | [place] [address] | | | SERVICES, CORE | PARK [...] [facility] | [address] | [place] [address] | | | LYDIA RANGEL | CLARENCE [...] [facility] | [address] | [place] [address] | | | SERVICES, CORE [...]
--- OUTSIDE RECORDS SUMMARY | ~2019-12-02 | XMS | Encounter Summary ---
Demographics + + + | Address | [address] | | | [place] [address] | + + + | Home Phone [...] Providers + +------+ + | Care Tester Vibrator Equipment Name | Role | Phone | + [...] from Patient; | | 2017 | | [place] [address] | MD [address] | Postoperative | | | | Ave Mailcode: CH4S | [place], [place] | infection | | | | [facility] | [address] | | | | | and Healing, | [phone] | | | | | [place] [address] [facility] | | | | | | [place], [place] | | | | | | [address] | | | | | | [phone] | | | +--------+ + + + [...] [place] | | | | | | [address] | | | | | | [phone] | | | | | | | | +--------+---------+ + + + documented as of this encounter Visit Diagnoses Not on filedocumented in this encounter"
--- OUTSIDE RECORDS SUMMARY | ~2019-12-02 | XMS | Encounter Summary ---
Demographics + + + | Address | [address] | | | [place] [address] | + + + | Home Phone [...] + + + | Author | [facility] | | | and Jeffana | + + + | Organization | [facility] [...] Providers + +------+ + | Care Director University Name | Role | Phone | + +------+ + PCP | Unavailable | + +------+ + Encounter Details +--------+ + + + + | Date | Type | Department | Care Team | Description | +--------+ + + + + | 06/19/ | Hospital | [facility] | Fadi Goodrich, | | | 2002 | Encounter | CONVERSION [address] | [place] [address] [place] | | | | | [address] | [address] | | | | | [place], [place] | [place] [address] | | | | | [address] | [phone] | | | | | [phone] | | | +--------+ + + + [...] | | | | | | [address] [address] | | | | | | [phone] | | | | | | | | +--------+---------+ + + + documented as of this encounter Visit Diagnoses Not on filedocumented in this encounter"
--- OUTSIDE RECORDS SUMMARY | ~2019-12-02 | XMS | Encounter Summary ---
Demographics + + + | Address | [address] | | | [place] [address] | + + + | Home Phone [...] + | Katalina Padilla | ECON | [address] | | | | | [place], [place] | | | | | [address] | | + + + + + | Ellie Vang | ECON | Unknown | | + + + + + Care Team Providers + +------+ + | Care Group Contract Analyst Name | Role | Phone | + +------+ + | Fadi Goodrich DO | PCP | | + +------+ + Encounter Details +--------+ + + + + | Date | Type | Department | Care Team | Description | +--------+ + + + + | 03/04/ | Telephone | [facility] | Ion Pandey, | | | 2018 | | [place] [facility] [address] | MD [address] | | | | | [address] | [place], [place] | | | | | Mailcode: [place] | [address] | | | | | for Health and | | | | | | [facility] [address] | | | | | | [place], [place] | | | | | | [address] | | | | | | | [...] [address] | | | | | | [place], [place] | | | | | | [address] | | | | | | [phone] | | | | | | | | +--------+---------+ + + + documented as of this encounter Visit Diagnoses Not on filedocumented in this encounter"
--- OUTSIDE RECORDS SUMMARY | ~2019-12-02 | XMS | Encounter Summary ---
Demographics + + + | Address | [address] | | | [place] [address] | + + + | Home Phone [...] [place], [place] | | | | | [address] | | + + + + + | Ellie Vang | ECON | Unknown | | + + + + + Care Team Providers + +------+ + | Care Digital Proofing And Platemaker Name | Role | Phone | + [...] | | 2014 | | Center at [facility] [address] | ACNP [address] | | | | | [address] | Ave [place], [place] | | | | | Mailcode: [place] | [address] | | | | | for Health and | | | | | | [place] [address] | | | | | | [place], [place] | | | | | | [address] | | | | | | [phone] | | | +--------+ + + + [...] [place] | | | | | | [address] | | | | | | [phone] | | | | | | | | +--------+---------+ + + + documented as of this encounter Visit Diagnoses Not on filedocumented in this encounter"
--- OUTSIDE RECORDS SUMMARY | ~2019-12-02 | XMS | Encounter Summary ---
Demographics + + + | Address | [address] | | | [place] [address] | + + + | Home Phone [...] [place], [place] | | | | | [address] | | + + + + + | Ellie Vang | ECON | Unknown | | + + + + + Care Team Providers + +------+ + | Care Technology Sales Specialist Name | Role | Phone [...] Care Coordination | | 2019 | | [place] at [facility] [address] | MD Jor[address] | (follow up) | | | | [address] | [address] | | | | | Mailcode: [place] | [place], [place] | | | | | [facility] and | [address] | | | | | [place] [address] | [phone] | | | | | [place], [place] | | | | | | [address] | | | | | | [phone] | | | +--------+ + + + [...] [address]ann[address] | | | | | | [place], [place] | | | | | | [address] | | | | | | [phone] | | | | | | | | +--------+---------+ + + + documented as of this encounter Visit Diagnoses Not on filedocumented in this encounter"
--- OUTSIDE RECORDS SUMMARY | ~2019-12-02 | XMS | Encounter Summary ---
Demographics + + + | Address | [address] | | | [place] [address] | + + + | Home Phone [...] [place], [place] | | | | | [address] | | + + + + + | Ellie Vang | ECON | Unknown | | + + + + + Care Team Providers + +------+ + | Care Gold Buyer Name | Role | Phone | [...] Diabetes & | Morbid | Kathy M, ASSISTANT STORE MANAGER | [address] | | | | Metabolism | obesity | [address] | Pavilion | | | | | (HCC) | [address], | Loop | | | | | Procedures | [address] | Physician's | | | | | CONSULT TO | [facility] [place] | Pavilion | | | | | ENDO | [address] | Physician's | | | | | [address] | Phone: | Pavilion | | | | | [address] | [phone] | [place], [place] | | | | | | Fax: | [address] | | | | | | [phone] | Phone: | | | | | | | [phone] | | | | | | | Fax: | | | | | | | [phone] | +--------+--------+ + + + + Encounter [...] | | | Center at Physicians | [place], [place] | ([facility]) (Primary Dx); | | | | [address] | [address] | Type 2 diabetes | | | | [address] | [phone] | mellitus ([facility]); AMARA | | | | Physician's Pavilion | | (obstructive sleep | | | | Physician's | | apnea); Morbid | | | | [address] [place], | | obesity ([facility]); | | | | [place] [address] | | Edema; GERD | | | | [phone] | | (gastroesophageal | | | | [...] Goodrich DO Referring physician: Kathy Feldman, [address] [place] [address] HPI: Dylan is a 38 y.o. female [...] 9 CREATININE PLASMA (LAB) 0.71 EGFR - MALDIVIAN >60 EGFR NON -MALDIVIAN >60 GLUCOSE, PLASMA (LAB) 113 (H) CALCIUM, [...] | | 2019 | Visit | | [address] | | | | | | [place], [place] | | | | | | [address] | | | | | | [phone] | | | | | | | [...] | | | PDT | type 2) ([facility]) | results section. | + +--------+ + + + | [place] COLLECTION | Routin | 04/14/2013 | DM [...] + | KALEYORIN Gil LANE[place] | [address] | [place], [place] | | | [facility]Y | [address] | [address] | | | TESTS | | | [...]
--- OUTSIDE RECORDS SUMMARY | ~2019-12-02 | XMS | Encounter Summary ---
Demographics + + + | Address | [address] | | | [place] [address] | + + + | Home Phone [...] | Organization | [facility] | | | and [...] Team Providers + +------+ + | Care Rig Site Engineer Name | Role | Phone | [...] | | [address] | [facility] [address] | | | | | [place], [place] | [place] [address] | | | | | [address] | [phone] | | | | | [phone] | | | +--------+ + + + [...] [address] | | | | | | [place] [address] | | | | | | [phone] | | | | | | | [...] | | to assess segmental wall motion, [place] visually estimates LVEF | | | >70%. [...] assess | | | segmental wall motion, [place] visually estimates LVEF >70%. RV | | [...] not well visualized. MEASUREMENTS | | | Manager Transplant: JESSICA Authenticated by: Edson Cruz DO | [...] to assess | | segmental wall motion, [place] visually estimates LVEF >70%. RV grossly NML. [...] | IVC was not well visualized. MEASUREMENTS Manager Transplant: HONEYuthenticated by: | | Edson Jones Date/Time: 01-02-2016 19:12:36 IMPRESSION: 1. See Dictation. | | TDS. Sinus. 2. Cardiac chamber dimensions grossly NML. LV systolic and diastolic | | functions grossly NML, unable to assess segmental wall motion, [place] visually estimates | | LVEF >70%. RV [...] | |MEASUREMENTS | | | | | |Manager Transplant: JESSICA | |Authenticated by: Edson Cruz DO | |Report Date/Time: 01-02-2016 19:12:36 | | | |IMPRESSION: | |1. See Dictation. TDS. Sinus. 2. Cardiac chamber dimensions grossly NML. LV systolic and diastolic functions grossly NML, unable to assess segmental wall motion, [place] visually es timates LVEF >70%. RV grossly | |NML. 3. Aortic valve sclerotic, no /AI | | observed. Mitral and Tricuspid valves grossly NML, Pulmonic valve not seen well. Trace T R. 4. No Pericardial effusion. 5. IVC not seen well. | + + documented in this encounter Visit Diagnoses Not on filedocumented in this encounter"
--- OUTSIDE RECORDS SUMMARY | ~2019-12-02 | XMS | Encounter Summary ---
Demographics + + + | Address | [address] | | | [place] [address] | + + + | Home Phone [...] [place], [place] | | | | | [address] | | + + + + + | Ellie Vang | ECON | Unknown | | + + + + + Care Team Providers + +------+ + | Care Marshmallow Runner Name | Role | Phone | [...] | | | | | | | [facility] | | | | | | | [employer] and | | | | | | | Healing, | | | | | | | [address] | | | | | | | [place], [place] | | | | | | | [address] | | | | | | | Phone: | | | | | | | [phone] | | | | | | | Fax: | | | | | | | [phone] | +--------+--------+ + + + + Encounter [...] | | [address] | Ave [place], [place] | adult (HCC) (Primary | | | | Mailcode: Center | [address] | Dx); Vitamin D | | | | for Health and | | deficiency disease; | | | | Healing, [address] | | Intertriginous | | | | [place], [place] | | candidiasis; | | | | [address] | | Diabetes mellitus | | | [...] Psychological Evaluation: If your referral is at [facility], pain management will call irma [...] the time. If your referral is at [facility], they will call y ou in the next week to schedule. She will arrange 8. Nephrology Consult: Please call [employer] ([phone]) and have them send you a urine specimen container. You will need to discuss your kidney stone risk with a nephrology provid er prior to proceeding with gastric bypass. If your referral is at [facility], they will call you in [...] at the same time: betsy Feldman RN, [facility]- Nurse Practitioner for Bariatric Surgery [facility] | [address] | [place], [place] | [address] | Potential Contraindications to Bariatric Surgery Age [...] other providers does not guarantee that the [facility] Bariatric Surger y program will deem you a surgical candidate. documented in this encounter Progress Notes Shereen Pinto ACNP - 06/16/2013 1:28 PM PSTFormatting of this note might be different fro m the original. BARIATRIC INITIAL VISIT Provider: Shereen Pinto DNP, [facility], REHAB NURSE Referring Provider: Dr. Fadi Goodrich, [place] [phone] Reason for Requested Consultation: Initial evaluation for bariatric surgery. Elzbieta Farooq is interested in Frandy en y alfredo tomeka bypass. The pt is here With her sister. Following surgery her mother and sister will care for her, she will Stay in [place] after surgery so that she is close by. She lives in [place]. 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 Denies CHF, ND, ischemic heart disease, DVT/PE, or pulmonary hypertension. [...] the therapy. 8. Nephrology Consult: Please call [employer] ([phone]) and have them send you a urine specimen container. You will need to discuss your kidney stone risk with a nephrology provid er prior to proceeding with gastric bypass. If your referral is at [facility], they will call you in the next week to schedule. You are at increased risk of renal stones after surgery, with your history of stone, we want to check of oxalate in your urine. You will need a referral to a siding coreboard inspector If your level is elevated. 9. See [...] soon as possible Shereen Pinto DNP ACNP, REHAB NURSE Nurse Practitioner for Bariatric Surgery [facility] | [address] | [place], [place] | [address] | Potential Contraindications to Bariatric Surgery Age [...] other providers does not guarantee that the [facility] Bariatric Surger y program will [...] [address] | | | | | | [place], [place] | | | | | | [address] | | | | | | [phone] | | | | | | | [...] | | | | | | by [facility],[address] | | | | | | [place] [place] | | | | | | [address] | | | | | | [phone]. | | | | | | pastora, [...] at | | | | | | [employer] | | | | | | developed and | | | | | | characteristics | | | | | | determined by | | | | | | [facility]. See | | | | | | Compliance Statement B: | | | | | | vBrand/CS | | | | + + + + + + + + | Specimen | + + | Blood - Blood | + + + + + + + | Performing | Address | City/State/Zipcode | Phone Number | | Organization | | | | + + + + + | [facility] | [address] | [place], [place] | | | [facility] | | [address] | | + + + + + [...]
--- OUTSIDE RECORDS SUMMARY | ~2019-12-02 | XMS | Encounter Summary ---
Demographics + + + | Address | [address] | | | [place] [address] | + + + | Home Phone [...] [place], [place] | | | | | [address] | | + + + + + | Ellie Vang | ECON | Unknown | | + + + + + Care Team Providers + +------+ + | Care Meter Engineer Name | Role | Phone | [...] | | | [address] | [place], [place] | Dx); History of | | | | Mailcode: Center | [address] | Frandy-en-Y gastric | | | | for Health and | | bypass | | | | [facility] | | | | | | [place], [place] | | | | | | [address] | | | | | | [phone] | | | +--------+---------+ + + + [...] to the healing stomach. There are also local intermodal truck driver complications of poor wound healing and gastric u lcers. These ulcers are started by smoking or using other nicotine products (vapor cigarett es etc). Gastric bypass patients should also avoid NSAIDS(ibuprofen, advil, motrin, naprosyn/naproxe n/aleve) to prevent gastric/marginal ulcers. Please visit with our Probation Counselor (RD) for instructions about your Bariatric diet, assistance with calorie counts, tips and tricks for working with your diet restrictions, an d recipes after bariatric surgery. Daily yogurt; even just 1 tablespoon twice a day will provide enough probiotics to optimize digestion. Try to use a high-quality, probiotic-dense yogurt (eg Zaria's, [place], Lif eway Kefir, Canadian Bacon Tier Duke's Yakut Yogurt). Remember to chew your food well, [...] protein daily, and 64 oz water daily. French Pastry Cook just changed diet to he lp her [...] by communicating with her mother - Follow French Pastry Cook recommendations to help with nausea (decrease volume, [...] Anisa Dillon MD PGY-1, Red Surgery Pager: [phone] documented in this encounter Plan of Treatment +--------+---------+ + + + | Date | Type | Specialty | Care Team | Description | +--------+---------+ + + + | 03/15/ | Office | Cardiology | Randell Franks, | | | 2019 | Visit | | MD [address] | | | | | | [place], [place] | | | | | | [address] | | | | | | [phone] | | | | | | | | +--------+---------+ + + + documented as of this encounter Visit Diagnoses + + | Diagnosis | + + | Aftercare following surgery - Primary Encounter for other specified aftercare | + + | History of Frandy-en-Y gastric bypass Bariatric surgery status | + + documented in this encounter
--- OUTSIDE RECORDS SUMMARY | ~2019-12-02 | XMS | Encounter Summary ---
Demographics + + + | Address | [address] | | | [place] [address] | + + + | Home Phone [...] + | Organization | [facility] | | [...] Providers + +------+ + | Care Technology Services Manager Name | Role | Phone | + +------+ + PCP | Unavailable | + +------+ + Encounter Details +--------+ + + + + | Date | Type | Department | Care Team | Description | +--------+ + + + + | 11/20/ | Orders Only | [facility] | Conversion | | | 2017 | | NEPHROLOGY JESUS | Transaction, | | | | | [address] | Provider Unknown | | | | | [address] | | | | | | [address] | (Fax) | | | | | [phone] | | | +--------+ + + + [...] [address] | | | | | | [place] [address] | | | | | | [phone] | | | | | | | [...]
--- OUTSIDE RECORDS SUMMARY | ~2019-12-02 | XMS | Encounter Summary ---
Demographics + + + | Address | [address] | | | [place] [address] | + + + | Home Phone [...] [place], [place] | | | | | [address] | | + + + + + | Ellie Vang | ECON | Unknown | | + + + + + Care Team Providers + +------+ + | Care Data Administrator Name | Role | Phone | [...] Diabetes & | Morbid | Kathy M, DENTAL PROSTHETIST | [address] | | | | Metabolism | obesity | [address] | [address] | | | | | (HCC) | [address], | Loop | | | | | Procedures | [address] | Physician's | | | | | CONSULT TO | [place], [place] | Pavilion | | | | | ENDO | [address] | Physician's | | | | | [address] | Phone: | Pavilion | | | | | | [phone] | [place], [place] | | | | | | Fax: | [address] | | | | | | [phone] | Phone: | | | | | | | [phone] | | | | | | | Fax: | | | | | | | [phone] | +--------+--------+ + + + + Encounter [...] | | | [facility] | [place], [place] | (Primary Dx); Morbid | | | | [address] | [address] | obesity (HCC) | | | | [address] | [phone] | | | | | Physician's Pavilion | | | | | | Physician's | | | | | | Pavilion [place], | | | | | | [place] [address] | | | | | | [phone] | | | +--------+---------+ + + + [...] [place] | | | | | | [address] | | | | | | [phone] | | | | | | | [...]
--- OUTSIDE RECORDS SUMMARY | ~2019-12-02 | XMS | Encounter Summary ---
Demographics + + + | Address | [address] | | | [place] [address] | + + + | Home Phone [...] [place], [place] | | | | | [address] | | + + + + + | Ellie Vang | ECON | Unknown | | + + + + + Care Team Providers + +------+ + | Care Crib Tender Name | Role | Phone | [...] | | | | | | Pav[place], | | | | | | [place] [address] | | | | | | [phone] | | | +--------+ + + + [...] | | | | | | [place], [place] | | | | | | [address] | | | | | | [phone] | | | | | | | | +--------+---------+ + + + documented as of this encounter Visit Diagnoses Not on filedocumented in this encounter"
--- OUTSIDE RECORDS SUMMARY | ~2019-12-02 | XMS | Encounter Summary ---
Demographics + + + | Address | [address] | | | [place] [address] | + + + | Home Phone [...] + | Organization | [facility] [...] Providers + +------+ + | Care Manager Retail Name | Role | Phone | + +------+ + PCP | Unavailable | + +------+ + Encounter Details +--------+ + + + + | Date | Type | Department | Care Team | Description | +--------+ + + + + | 11/04/ | Orders Only | [facility] | Conversion | | | 2017 | | NEPHROLOGY JESUS | Transaction, | | | | | [address] | Provider Unknown | | | | | [address] | | | | | | [address] | (Fax) | | | | | [phone] | | | +--------+ + + + [...] [address] | | | | | | [place] [address] | | | | | | [phone] | | | | | | | [...]
--- OUTSIDE RECORDS SUMMARY | ~2019-12-02 | XMS | Encounter Summary ---
Demographics + + + | Address | [address] | | | [place] [address] | + + + | Home Phone [...] Team Providers + +------+ + | Care Rate And Cost Analyst Name | Role | Phone | [...] | BROCK Roldan | | | with EXECUTIVE CASINO HOST | | hypertension | [address] | | | | | Right | [address] | [place] | | | | | heart | [place], [place] | [place], | | | | | failure | [address] | [place] | | | | | ([facility]) Type | Phone: | [address] | | | | | 2 diabetes | [phone] | | | | | | mellitus | Fax: | | | | | | without | [phone] | | | | | | complication [...] | 2018 | Visit | Center at [facility] [address] [facility] | gastric bypass | | | | [facility] | [facility] [address] | (Primary Dx); | | | | for [place] and | [place], [place] | 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[facility] | [address] | with insulin therapy | | | | [place], [place] | | ([facility]) | | | | [address] | | | | | | [phone] | | | +--------+---------+ + + + [...] Follow-Up Patient referred by: Randell Franks MD [address] [place] [address] Documented time of visit: 10:33 to 10:55 (22 minutes bhyq-zw-qibf with patient) Surgery: Gastric Bypass Date of [...] tomato), cream of wheat occ, cottage cheese, bolivian yogurt-light and fit, protein bar from [employer]. Unable to keep protei n shakes down. Fluid choices: water-4-5 bottles per day Supplementation: Flinstones, iron, vitamin D, vitamin C, Citracal supplement x 2 in the mor eusebio and 2 at night, magnesium, potassium, B67-[id number] today Assessment: Vomiting likely due to volume [...] multivitamin & mineral (with iron) supplement, 2/day -7205-5618 mg calcium citrate with vitamin D/day (take in divided doses, not within 2 hour s of multivitamin or iron supplement) -500 mcg/day sublingual B12 supplement (or monthly injections) Continued to reinforce importance of mindful eating. Continue to increase physical activity. Follow up in [address],[place] Pager# [phone] Phone: [phone] documented in this en counter Plan of Treatment +--------+---------+ + + + | Date | Type | Specialty | Care Team | Description | +--------+---------+ + + + | 03/15/ | Office | Cardiology | Randell Franks, | | | 2019 | Visit | | [address] | | | | | | [place], [place] | | | | | | [address] | | | | | | [phone] | | | | | | | | +--------+---------+ + + + documented as of this encounter Procedures + +--------+ + + + | Procedure Name | Priori | Date/Time | Associated Diagnosis | Comments | | | ty | | | | + +--------+ + + + | [facility] MNT RE-ASSESSMNT | Routin | 04/01/2018 | [...]
--- OUTSIDE RECORDS SUMMARY | ~2019-12-02 | XMS | Encounter Summary ---
Demographics + + + | Address | [address] | | | [place] [address] | + + + | Home Phone [...] | Organization | [facility] | | | and [...] Team Providers + +------+ + | Care Kaiako Kohanga Reo Name | Role | Phone | + +------+ + PCP | Unavailable | + +------+ + Encounter Details +--------+ + + + + | Date | Type | Department | Care Team | Description | +--------+ + + + + | 10/07/ | Orders Only | [facility] | Conversion | | | 2018 | | NEPHROLOGY JESUS | Transaction, | | | | | [address] | Provider Unknown | | | | | [address] | | | | | | [address] | (Fax) | | | | | [phone] | | | +--------+ + + + [...] | | | | | [place] [address] | | | | | | [phone] | | | | | | | [...]
--- OUTSIDE RECORDS SUMMARY | ~2019-12-02 | XMS | Encounter Summary ---
Demographics + + + | Address | [address] | | | [place] [address] | + + + | Home Phone [...] [place], [place] | | | | | [address] | | + + + + + | Ellie Vang | ECON | Unknown | | + + + + + Care Team Providers + +------+ + | Care Settlement Processor Name | Role | Phone | [...] | 2015 | Visit | Center at [facility] [address] | (Primary Dx); | | | | [address] [place] | [facility] [facility] [address] | 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for [place] and | [place], [place] | with insulin therapy | | | | [facility] [address] | [address] | (HCC) | | | | [place], [place] | [phone] | | | | | [address] | | | | | | [phone] | | | +--------+---------+ + + + [...] of Visit: 1:30 to 1:55 (25 minutes dasy-zl-xlii with patient). Pt seen tog ether with Rossana Espinoza RD (training) SUBJECTIVE: Working with RN to get access to [employer] water exercises. States she was down to 374lbs by following LRD but with complications (n/v, fainting) - need to obtain records from PCP [facility]. Food Allergies: No Current Physical Activity: Nothing - plans to start swimming this week Diet Recall Baring (100kcal) + Activia Light - 60kcal Atkins [...] post-surgery diet progression. 4. Call or send [employer] message to dietitian with any questions. Contact information was provided. Follow up with dietitian via telephone 1 week after beginning water exercises for weight ch addie. Yuli Childs RD, [facility], [place] Pager# [phone] Rossana Espinoza MS, RD Pgr #[phone] documented in this enco unter Plan of Treatment +--------+---------+ + + + | Date | Type | Specialty | Care Team | Description | +--------+---------+ + + + | 03/15/ | Office | Cardiology | Randell Franks, | | | 2019 | Visit | | MD [address] | | | | | | [place], [place] | | | | | | [address] | | | | | | [phone] | | | | | | | | +--------+---------+ + + + documented as of this encounter Procedures + +--------+ + + + | Procedure Name | Priori | Date/Time | Associated Diagnosis | Comments | | | ty | | | | + +--------+ + + + | [place] MNT RE-ASSESSMNT | Routin | 12/27/2014 | Morbid obesity | | | X15MIN | e | 8:17 AM | ([facility]) Diabetes | | | | | PDT | mellitus with | | | | | | insulin therapy | | | | | | ([facility]) | | + +--------+ + + + documented in this encounter Visit Diagnoses + + | Diagnosis | + + | Morbid obesity (HCC) - Primary Morbid obesity | + + | Diabetes mellitus with insulin therapy (HCC) | + + documented in this encounter
--- OUTSIDE RECORDS SUMMARY | ~2019-12-02 | XMS | Encounter Summary ---
Demographics + + + | Address | [address] | | | [place] [address] | + + + | Home Phone [...] [place], [place] | | | | | [address] | | + + + + + [...] | | Department [address] | | | | | [address] | [address] | | | 05/14/ | | [facility] | [place], [place] | | | 2019 | | [place], [place] | [address] | | | | | [address] | [phone] | | | | | [phone] | | | +--------+ + + + [...] by mouth once daily at bedtime. CALCIUM [id number]-GENIS ORAL Take 2 tablets by mouth two [...] the prescribed narcotic-opioid (e.g. oxycodone, hydrocodone, Vicodin, Mildred, Percoce t, Dilaudid) as needed. Opioid pain medications may cause constipation, so be sure to take a stool softener if you take an opioid pain medication. FOLLOW-UP: Follow-up with your primary care provider for pain control. Dr. Tiwari's personnel scheduler will contact you to try to find a date for surgery. Follow Up: Future Appointments Provider Department Dept Phone Center 06/27/2019 11:55 AM [facility] PHONE/RN CLIN 3 Pre[facility] at [place] [address] [phone] [facility] 06/30/2019 11:30 AM Aly [facility]iology in [facility] [place] [facility] Schedule the following appointment(s) when you get home JONES TIWARI MD. Specialty: General Surgery Why: Dr. Tiwari's personnel scheduler will call you to schedule a surgery date. Contact information [address] [place] [address] [place] [address] Kenyatta Hylton MD. Specialty: Family [...] of Gastrointestinal and General Surgery [facility] [address] [place] [address] Office: [phone] documented in this e ncounter Discharge Instructions [...] surgery date up as possible and the personnel scheduler will contact you. Elec tronically signed [...] the prescribed narcotic-opioid (e.g. oxycodone, hydrocodone, Vicodin, Mildred, Percoce t, Dilaudid) as needed. Opioid pain medications may cause constipation, so be sure to take a stool softener if you take an opioid pain medication. FOLLOW-UP: Follow-up with your primary care provider for pain control. Dr. Tiwari's personnel scheduler will contact you to try to [...] | | 0 | | | | [id number]-GEN | mouth two times | | | [...] [place] | | | | | | [address] | | | | | | [phone] | | | | | | | [...] [facility] | [address] | [place], [place] | | | [place] [facility] | [address] | [address] | | | TESTS | | | [...] LABORATORY | [address] | [place] [address] | | | SERVICES, CORE | CLARENCE [...] | [facility] | [address] | [place] [address] | | | SERVICES, [facility] [place] [place] | [address] | | | + [...] abdomen and pelvis WITH intravenous contrast. | [facility] | | HISTORY: Concern for incarcerated hernia [...] LABORATORY | [address] | [place] [address] | | | SERVICES, CORE | PARK [...] 5-6 weeks | | | 850 - 61797 6-7 weeks | | | 4000 - 698302 7-12 weeks | | | 12448 - 712225 12-16 weeks | | | 16492 - 109169 16-29 | | | weeks 1400 - 00363 | | | 29-41 weeks 940 - 33397 | | | This test has not been approved for use as a tumor marker in | | | males or females. | | + + + + + + + + | Performing | Address | City/State/Zipcode | Phone Number | | Organization | | | | + + + + + | [facility] | [address] [facility] | [place] [address] | | | SERVICES, CORE | PARK [...] | [facility] | [address] | [place] [address] | | | SERVICES, CORE | PARK [...] | [facility] | [address] | [place] [address] | | | LYDIA RANGEL | [address] | | | + + + + + ED INFORMATION EXCHANGE (05/13/2019 5:14 PM PDT) + + | Specimen | + + | | + + + + + | Narrative | Performed At | + + + | COLLECTIVE?NOTIFICATION?05/13/2019 17:13?DYLAN ROMERO?MRN: | [facility] | | [id number] Criteria Met Has Guidelines PDMP Security | MEDICAL | | and Safety No recent Security Events currently on file ED Care | [employer] | | Guidelines from [email or web address] Last Updated: 12/06/18 9:53 AM | | | Care Coordination: Receiving mental health services with | | | [employer].? Please contact [employer] for mental health concerns.? | | | Sarah/Toni [place]: [phone]? [place]: [phone].? | | | These are guidelines and the provider should exercise clinical | | | judgment when providing care. Care History Medical/Surgical | | | 05/11/19 12:00 AM [facility] Patient is | | | currently established with [facility]. If patient is seen in | | | the ED during business hours. Please contact CHWs at [facility] | | | [facility]. Care Recommendation: This patient has [...] 12:00 AM | | | [facility] PATIENT HAS A PCP APT TO [...] SUDOGEST 30 MG TABLET 5 BERNARDO VERONICA, ELECTRIC LINEMAN 0 | | | 2019-03-30 SUDOGEST 30 MG TABLET 30 BERNARDO MARTIN, ELECTRIC LINEMAN 0 | | | 2019-03-20 ALPRAZOLAM 1 [...] mo.) Facility Visits | | | [facility] [address] [facility] 1 | | | [facility] 2 Total 4 Note: Visits indicate total | | | known visits. Recent Emergency Department Visit Summary Date | | | Facility City State Type Diagnoses or Chief Complaint May 13, 2019 | | | [facility] [place] Emergency | | | 10,800. A303 [facility] [place] 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 Emergency RIGHT LEG PAIN DUE TO FALL | | | Strain of unsp musc/tend at lower leg level, right leg, init Jul | | | 2018 [facility]. [place] Emergency Other mcfp | | | (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 Upper abdominal pain, unspecified | | | Bariatric surgery status Allergy status to oth drug/meds/biol | | | subst status Noninfective gastroenteritis and colitis, | | | unspecified Obesity, unspecified Anxiety disorder, | | | unspecified detention (current) use of aspirin Allergy | | | status to penicillin Personal history of pulmonary embolism | | | Recent Inpatient Visit Summary No recorded inpatient visits. | | | Care Team Provider Specialty Phone Fax Service Dates Treva | | | Rob Tool Room Attendant/Fish Trapper Mar 27, 2018 - | | | Current Bernard Hylton MD Internal Medicine: Pulmonary Disease | | | Aug 23, 2018 - Current [employer] This patient has | | | registered at the [facility] Emergency | | | Department For more information visit: | | | [email or web address] | | | [email or web address] PLEASE NOTE: 1. Any care recommendations [...] the limitations of applicable | | | [employer] Policies. 3. You should consult directly with the | | | organization that provided a care guideline or other clinical | | | history with any questions about additional information or accuracy | | | or completeness of information provided. ? 2019 [employer] | | | [employer]. - [email or web address] | | + + + + + | Procedure Note | + + | Service Account, Rtf Results Inbound - 05/13/2019 5:16 PM PDT Formatting of this | | note might be different from the original.COLLECTIVE?NOTIFICATION?05/13/2019 | | 17:13?DYLAN ROMERO? [facility] Has Guidelines PDMPSecurity and | | SafetyNo recent Security Events currently on fileED Care Guidelines from [employer] - | | Irma Updated: 12/06/18 9:53 AM Care Coordination:Receiving mental health | | services with [employer].? Please contact [employer] for mental health concerns.? | | [facility] [phone]? [place]: [phone].?These are guidelines | | and the provider should exercise clinical judgment when providing care.Care | | HistoryMedical/Fyyoclsr24/16/19 12:[address] [facility] Patient is currently | | established with [facility]. If patient is seen in the ED during business hours. | | Please contact CHWs at [facility].Care Recommendation:This patient has had 5 or [...] SUDOGEST 30 MG TABLET 5 BERNARDO MARTIN, ELECTRIC LINEMAN 0 2019-03-30 SUDOGEST 30 MG TABLET 30 | | BERNARDO MARTIN, ELECTRIC LINEMAN 0 2019-03-20 ALPRAZOLAM 1 MG TABLET 60 [...] 0 E.D. Visit Count (12 mo.)Facility Visits [facility] | | Health [address] [facility] [address] [facility] 2 Total 4 Note: | | Visits indicate total known visits. Recent Emergency Department Visit SummaryDate | | Facility City State Type Diagnoses or Chief Complaint May 13, 2019 [facility] | | [facility] [place] Emergency 10,800. A303 May 10, 2019 [facility] | | 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 Emergency RIGHT LEG PAIN DUE TO FALL Strain of | | unsp musc/tend at lower leg level, right leg, init Aug 22, 2018 [facility] | | [place] Emergency Other mcfp (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 Upper abdominal pain, | | unspecified Bariatric surgery status Allergy status to oth drug/meds/biol subst | | status Noninfective gastroenteritis and colitis, unspecified Obesity, unspecified | | Anxiety disorder, unspecified middle or intermediate school principal (current) use of aspirin Allergy status | | to penicillin Personal history of pulmonary embolism Recent Inpatient Visit | | SummaryNo recorded inpatient visits. Care TeamProvider Specialty Phone Fax Service Dates | | Rob Tilley Tool Room Attendant/Fish Trapper Mar 27, 2018 - Current | | Bernard Hylton MD Internal Medicine: Pulmonary Disease Aug 23, 2018 - Current | | [employer] patient has registered at the [facility] | | Emergency Department For more information visit: | | [email or web address] PLEASE | | NOTE: 1. Any care [...] to the | | limitations of applicable [employer] Policies. 3. You should consult directly with | | the organization that provided a care guideline or other clinical history with any | | questions about additional information or accuracy or completeness of information | | provided.? 2019 [employer]. - [email or web address] | |[facility] 3 | |Benzos 4 | |Opioids 7 | |Long Acting Opioids 0 | | | | | | | |E.D. Visit Count (12 mo.) | |Facility Visits | |[facility] 1 | |[facility] 1 | |[facility] 2 | |Total 4 | |Note: Visits indicate total known visits. | | | |Recent Emergency Department Visit Summary | |Date Facility City State Type Diagnoses or Chief Complaint | |May 13, [address] [facility] [place] Emergency | | 10,800. A303 | | | |May 10, 2019 [facility] 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 [place] Emergency | | RIGHT LEG PAIN DUE TO FALL | | Strain of unsp musc/tend at lower leg level, right leg, init | | | |Aug 22, [address] [facility] [place]. [place] Emergency | | Other middle or intermediate school principal (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 | | Upper abdominal [...] Phone Fax Service Dates | |Rob Tilley Tool Room Attendant/Fish Trapper Mar 27, 2018 - Current | |Bernard Hylton MD Internal Medicine: Pulmonary Disease Aug 23, 2018 - Current | | | |[employer] | |This patient has registered at the [facility] [place] [facility] t | |For more information visit: [email or web address] | |PLEASE NOTE: | | 1. Any [...] information provided. | | | |? 2019 [employer]. - [email or web address] | + + + + + + + | Performing | Address | City/State/Zipcode | Phone Number | | Organization | | | | + + + + + | [facility] | [address] | [place], [place] | [phone] | | [employer] | [address] | [address] | | + + + + + [...] ONCE, 1 dose, [facility] 05/13/19 at | | [...]
--- OUTSIDE RECORDS SUMMARY | ~2019-12-02 | XMS | Encounter Summary ---
Demographics + + + | Address | [address] | | | [place] [address] | + + + | Home Phone [...] [place], [place] | | | | | [address] | | + + + + + | Ellie Vang | ECON | Unknown | | + + + + + Care Team Providers + +------+ + | Care Cath Lab Radiological Technologist Name | Role | Phone | [...] | | | | | [facility] | | | | | | [place], [place] | | | | | | [address] | | | | | | [phone] | | | +--------+ + + + [...] Flannery | | | | | | [place], [place] | | | | | | [address] | | | | | | [phone] | | | | | | | | +--------+---------+ + + + documented as of this encounter Visit Diagnoses Not on filedocumented in this encounter"
--- OUTSIDE RECORDS SUMMARY | ~2019-12-02 | XMS | Encounter Summary ---
Demographics + + + | Address | [address] | | | [place] [address] | + + + | Home Phone [...] Providers + +------+ + | Care Marketing Producer Name | Role | Phone | [...] | Event | Medicine Clinic at | [place], [place] | | | | | [facility] | [address] | | | | | [address] | | | | | | Mail Code: OC8PM | | | | | | [facility] | | | | | | and Healing, | | | | | | [address] | | | | | | [place], [place] | | | | | | [address] | | | | | | [phone] | | | +--------+ + + + [...] Flannery | | | | | | [place] | | | | | | [address] | | | | | | [phone] | | | | | | | | +--------+---------+ + + + documented as of this encounter Visit Diagnoses Not on filedocumented in this encounter"
--- OUTSIDE RECORDS SUMMARY | ~2019-12-02 | XMS | Encounter Summary ---
Demographics + + + | Address | [address] | | | [place] [address] | + + + | Home Phone [...] [place], [place] | | | | | [address] | | + + + + + | Ellie Vang | ECON | Unknown | | + + + + + Care Team Providers + +------+ + | Care Supervisory Civil Engineer Name | Role | Phone | [...] | | | | | | [place], [place] | | | | | | [address] | | | | | | [phone] | | | +--------+ + + + [...] | | | | | [place], [place] | | | | | | [address] | | | | | | [phone] | | | | | | | | +--------+---------+ + + + documented as of this encounter Visit Diagnoses Not on filedocumented in this encounter"
--- OUTSIDE RECORDS SUMMARY | ~2019-12-02 | XMS | Encounter Summary ---
Demographics + + + | Address | [address] | | | [place] [address] | + + + | Home Phone [...] [place], [place] | | | | | [address] | | + + + + + | Ellie Vang | ECON | Unknown | | + + + + + Care Team Providers + +------+ + | Care Index Clerk Name | Role | Phone | [...] | Encounter | [address] | [address] | | | | | [place], [place] | [address] | | | 08/23/ | | [address] | [place], [place] | | | 2019 | | [phone] | [address] | | | | | | [phone] | | | | | | | | | | | | Nay Joe, | | | | | | [address] | | | | | | [address] | | | | | | [place], [place] | | | | | | [address] | | | | | | [phone] | | | | | | | | | | | | Jones Tiwari, | | | | | | [address] [facility] | | | | | | [address] | | | | | | [place], [place] | | | | | | [address] | | | | | | [phone] | | | | | | | [...] gallo. She was transitioned off her HEALTH PROFESSIONAL on POD1. She di d have difficulty [...] condition. She will follow up at the [facility] with Dr. Tiwari in 2- 3 [...] by mouth once daily at bedtime. CALCIUM CRB&[id number]-GENIS ORAL Take 2 tablets by mouth two [...] daily. ASK your doctor about these medications PLISSE MACHINE OPERATOR THYROID 30 mg Tab tab Generic drug: [...] the prescribed narcotic-opioid (e.g. oxycodone, hydrocodone, Vicodin, Reynolds, Percocet, Dilaudid) as needed. However, Vicodin/Reynolds and Percocet contain acetam inophen in the [...] Narcotic-opioid pain medications (e.g. oxycodone, hydrocodone, Vicodin, Reynolds, Percocet, Di laudid) can be constipating, therefore you should take a stool softener on the same day as s tarting your narcotic pain medicine. Options include: Milk of Magnesia: 2 Tablespoons Twice daily Colace (=Docusate): 1 pill Twice daily Miralax: 1 Tablespoon (17 grams) daily (check bottle for mixing instructions) While these are some recommendations, any sxob-kjg-gageeen stool softener should work, and generics are [...] and plan of care. JONES TIWARI MD [facility] [address] [place] [address] documented in this encounter Discharge Instructions Discharge [...] hours by calling the surgery office at [phone]. After hours, weekends and holidays, you may call the hospital explosives operator at [phone] and have the relocation commissioner Green Team for general surgery paged. Discharge [...] gallo. She was transitioned off her HEALTH PROFESSIONAL on POD1. She did have dif ficulty [...] dition. She will follow up at the [facility] with Dr. Tiwari in weeks. [...] the prescribed narcotic-opioid (e.g. oxycodone, hydrocodone, Vicodin, Reynolds, Percocet, Dilaudid) as needed. However, Vicodin/Reynolds and Percocet contain acetam inophen in the [...] Narcotic-opioid pain medications (e.g. oxycodone, hydrocodone, Vicodin, Reynolds, Percocet, Di laudid) can be constipating, therefore you should take a stool softener on the same day as s tarting your narcotic pain medicine. Options include: Milk of Magnesia: 2 Tablespoons Twice daily Colace (=Docusate): 1 pill Twice daily Miralax: 1 Tablespoon (17 grams) daily (check bottle for mixing instructions) While these are some recommendations, any qdwv-aso-fmjrvuy stool softener should work, and generics are fine to use. Increase your fluids, especially your intake of water Increase your activity. Walk frequently. ANTICOAGULATION: We recommend you make an appointment to be seen in your local anticoagulation clinic on Thu08/25/19 to recheck your INR and for ongoing management of your warfarin. FOLLOW-UP: Please call Dr. Tiwari's office ([phone]) to schedule a follow-up appointment for 2-3 [...] | | 0 | | | | CRB&[id number]-[id number]-GEN | mouth two times | | | [...] + + +---------+ + + | thyroid (PLISSE MACHINE OPERATOR | Take 30 mg by mouth [...] assist PRN. Anticipate discharge michelle Chandler MD [facility], PGY-1 [facility] Personal Assistant Pager: [phone] signed by Jones Tiwari MD at 08/22/2019 [...] dc in 2-3 days Gadiel Chandler MD [facility], PGY-1 [facility] Personal Assistant Pager: [phone] Associated attestation - Jones Tiwari MD - 08/21/2019 9:57 AM PSTI performed a hist ory and physical examination of the patient and discussed her management with the resident. I reviewed the resident s note and agree with the documented findings and plan of care. JONES TIWARI MD [facility] [address] [place] [address] Valencia Zamora MD - 08/20/2019 8:42 AM [...] well. - ruiz out today - dc HEALTH PROFESSIONAL - ppx lovenox today - therapeutic lovenox [...] care -Multimodal pain control Joselyn Everett MD [facility] General Surgery PGY1 [id number] Gadiel Armstrong MD - 08/19/2019 12:34 PM [...] Gadiel Chandler MD [facility], PGY-1 [facility] Personal Assistant Pager: [phone] documented in this encounter Plan of Treatment +--------+---------+ + + + | Date | Type | Specialty | Care Team | Description | +--------+---------+ + + + | 03/15/ | Office | Cardiology | Aly Franks, | | 2019 | Visit | | [address] | | | | | | [place], [place] | | | | | | [address] | | | | | | [phone] | | | | | | | [...] [facility] | [address] | [place] [address] | | | SERVICES, CORE | CLARENCE [...] [facility] | [address] | [place] [address] | | | SERVICES, CORE | PARK [...] CENTER LAB[facility] | [address] | [place] [address] | | | SERVICES, CORE | CLARENCE [...] (H) | 70 - 99 mg/dL | [facility] | [address] | [place], [place] | | | JUSTINE DAWN OF JAKY | [address] | [address] | | | TESTS | | | [...] [facility] | [address] | [place], [place] | | | JUSTINE DAWN OF CARE | [address] | [address] | | | TESTS | | | [...] LABORATORY | [address] | [place] [address] | | | SERVICES, | [address] [...] [facility] | [address] | [place] [address] | | | SERVICES, | [address] [...] [facility] | [address] | [place], [place] | | | JUSTINE DAWN OF CARE | [facility] | [address] | | | TESTS | | | [...] | [facility] | | | GRAVITY | [place] performed by | | LABORATORY | | [...] [facility] | [address] | [place] [address] | | | SERVICES, CORE | PARK [...] [facility] | [address] | [place] [address] | | | SERVICES, | [address] [...] [facility] | [address] | [place] [address] | | | SERVICES, CORE | PARK [...] [facility] | [address] | [place] [address] | | | SERVICES, CORE | PARK [...] CENTER [facility] | [address] | [place] [address] | | | SERVICES, CORE | [address] | | | + + + + + LIPASE, PLASMA (08/18/2019 4:18 PM PST) + +---------+ + + + | Component | Value | Ref Range | Performed | Pathologist | | | | | At | Signature | + +---------+ + + + | LIPASE | 117 (L) | 152 - 353 U/L | [facility] | | | (LAB) | | [facility] | [address] [facility] | [place] [address] | | | SERVICES, [facility] | [address] | | | + [...] [facility] | [address] | [place] [address] | | | SERVICES, [facility] | [address] | | | + + + + + ED INFORMATION EXCHANGE (08/18/2019 1:47 PM PST) + + | Specimen | + + | | + + + + + | Narrative | Performed At | + + + | COLLECTIVE?NOTIFICATION?08/18/2019 13:47?DYLAN ROMERO?MRN: | COLLECTIVE | | [id number] Criteria Met 5 Visits In 12 Months Has | MEDICAL | | Guidelines PDMP Security and Safety No recent Security Events | [employer] | | currently on file ED Care Guidelines from [facility] - [place] | | | Last Updated: 12/06/18 9:53 AM Care Coordination: Receiving | | | mental health services with [facility].? Please contact [facility] for | | | mental health concerns.? Sarah/Toni Centeno: [phone]? | | | Kishan: [phone].? These are guidelines and the provider | | | should exercise clinical judgment when providing care. Care | | | History Medical/Surgical 05/24/19 12:00 AM [facility] | | | Hospital PATIENT HAS AN APT ON 06/16/[address] HYLTON. | | | 05/11/19 12:00 AM [facility] Patient is | | | currently established with [facility]. If patient is seen in | | | the ED during business hours. Please contact CHWs at [facility] | | | Clinic. Care Recommendation: [...] WITH DR HYLTON. Flags | | | [place] Disparity [place] - [place] ([place] | | | Disparity [place]) to [...] updated weekly. / Attributed By: [facility] ([facility]) / | | | Attributed [...] (12 | | | mo.) Facility Visits [facility] 1 [facility] and | | | [facility] 2 [facility] 7 Total 10 Note: | | | Visits indicate total known visits. Recent Emergency Department | | | Visit Summary Date Facility City State Type Diagnoses or Chief | | | Complaint Aug 18, 2019 [facility] [place] | | [place] Emergency 10,800. amr Jun 25, 2019 [facility] | | | [place] Emergency rn long term care (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 | | | Anxiety disorder, unspecified Cellulitis of abdominal wall | | | Acute embolism and thrombosis of deep veins of r up extrem | | | Nicotine dependence, unspecified, uncomplicated Migraine, unsp, | | | not intractable, without status migrainosus Unspecified | | | abdominal pain Allergy status to oth drug/meds/biol subst status | | | Other jail (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 Allergy status to | | | penicillin Jun 19, 2019 [facility] [place] Emergency | | | rn long term care (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 Prsnl hx of [...] without | | | status migrainosus Other jail (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 | | | Allergy status to oth drug/meds/biol subst status rn long term care | | | (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 rn long term care (current) use of | | | aspirin May 23, 2019 [facility] [place] Emergency | | | Anxiety disorder, unspecified Acute embolism and thrombosis of | | | deep veins of r up extrem Allergy status to penicillin | | | Other jail (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 Pain in right arm | | | rn long term care (current) use of aspirin Allergy status to oth | | | drug/meds/biol subst status May 20, 2019 [facility] | | | [place] Emergency Generalized abdominal pain Allergy | | | status to oth drug/meds/biol subst status Unspecified abdominal | | | pain Anxiety disorder, unspecified Other chronic pain | | | Allergy status to penicillin senior care (current) use of | | | aspirin Prsnl hx of TIA (TIA), and cereb infrc w/o resid | | | deficits Other exterminator helper termite (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 May 13, | | | 2019 [facility] [place] Emergency | | | 10,800. A303 18,400. Bariatric surgery status 18,400. | | | Ventral hernia without obstruction or gangrene 18,400. Nausea | | | with vomiting, unspecified 18,400. Unspecified abdominal pain | | | 18,400. Nonspecific mesenteric lymphadenitis May 10, 2019 [facility] | | | [facility] [place] [facility] [place] Emergency Nausea with vomiting, | | | unspecified Solitary pulmonary nodule Anxiety disorder, | | | unspecified Ventral hernia without obstruction or gangrene | | | Unspecified abdominal pain Diarrhea, unspecified Allergy | | | status to oth drug/meds/biol subst status Prsnl hx of TIA (TIA), | | | and cereb infrc w/o resid deficits Other exterminator helper termite (current) | | | drug therapy Allergy status to penicillin December 03, 2018 [facility] [place] [facility] RIGHT LEG PAIN DUE TO FALL | | | Strain of unsp musc/tend at lower leg level, right leg, init | | | Aug 22, 2018 [facility] [place] Emergency Other | | | exterminator helper termite (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 Upper abdominal pain, | | | unspecified Bariatric surgery status Allergy status to oth | | | drug/meds/biol subst status Noninfective gastroenteritis and | | | colitis, unspecified Obesity, unspecified Anxiety | | | disorder, unspecified rn long term care (current) use of aspirin | | | Allergy status to penicillin Personal history of pulmonary | | | embolism Recent Inpatient Visit Summary No recorded | | | inpatient visits. Care Team Provider Specialty Phone Fax Service | | | Dates Eagle Nino CHW Community Health Worker | | | Jul 03, 2019 - Current JONES DAVISON D.M.D. Dentist: | | | Engineering Secretary May 23, 2019 - | | | Current [place] Tilleyi Manager Power/Manager Pharmaceutical ([id number]) | | | [phone] Mar 27, 2018 - Current Bernard Hylton MD Internal | | | Medicine: Pulmonary Disease Aug 23, 2018 - Current | | | [employer] This patient has registered at the [facility] | | | [facility] Emergency Department For more information | | | visit: | | | [email or web address] | | | [email or web address] a PLEASE NOTE: 1. Any care recommendations [...] or completeness of information provided. ? 2020 [employer] | | | [place]. - www.[employer] | | + + + + + [...] on fileED Care Guidelines | | from [facility] - [place] Updated: 12/06/18 9:53 AM Care Coordination:Receiving | | mental health services with [facility].? Please contact [facility] for mental health | | concerns.? Sarah/Toni Centeno: [phone]? Kishan: [phone].?These are | | guidelines and the provider should exercise clinical judgment when providing care.Care | | HistoryMedical/Egnxacey99/29/19 12:00 AM [facility] PATIENT HAS AN APT | | ON 06/16/[address] HYLTON.05/11/19 12:00 AM [facility] Patient is | | currently established with [facility]. If patient is seen in the ED during | | business hours. Please contact CHWs at [facility].Care Recommendation:This | | patient has had 5 [...] 10/04/18 @ 10:00AM WITH DR HYLTON. Flags [place] Disparity [place] - [place] has | | developed a flag ([place] Disparity [place]) to help support Medicaid [...] updated weekly. / Attributed By: [facility] ([facility]) / Attributed On: | | [...] (12 mo.)Facility Visits [facility] 1 [facility] | | [facility] 2 [facility] 7 Total 10 Note: Visits indicate | | total known visits. Recent Emergency Department Visit SummaryDate Facility City State | | Type Diagnoses or Chief Complaint Aug 18, 2019 [facility] | | [place] Emergency 10,800. amr Jun 25, 2019 [facility] [place] Emergency | | senior care (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 Anxiety disorder, unspecified | | Cellulitis of abdominal wall Acute embolism and thrombosis of deep veins of r up | | extrem Nicotine dependence, unspecified, uncomplicated Migraine, unsp, not | | intractable, without status migrainosus Unspecified abdominal pain Allergy status | | to oth drug/meds/biol subst status Other jail (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 Allergy | | status to penicillin Jun 19, 2019 [facility] [place] Emergency senior care | | (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 Prsnl [...] unspecified Jun 01, 2019 | | [facility] [place] Emergency Headache Allergy status to penicillin | | Anxiety disorder, unspecified Obesity, unspecified Migraine, unsp, not | | intractable, without status migrainosus Other jail (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 | | Allergy status to oth drug/meds/biol subst status rn long term care (current) use of | | anticoagulants rn long term care (current) use of aspirin May 23, 2019 [facility] | | [place] Emergency Anxiety disorder, unspecified Acute embolism and thrombosis of | | deep veins of r up extrem Allergy status to penicillin Other jail (current) | | drug therapy Pain in right arm senior care (current) use of aspirin Allergy | | status to oth drug/meds/biol subst status May 20, 2019 [facility] [place] | | Emergency Generalized abdominal pain Allergy status to oth drug/meds/biol subst | | status Unspecified abdominal pain Anxiety disorder, unspecified Other chronic | | pain Allergy status to penicillin rn long term care (current) use of aspirin Prsnl hx | | of TIA (TIA), and cereb infrc w/o resid deficits Other jail (current) drug | | therapy May 13, 2019 [facility] [place] Emergency | | 10,800. A303 18,400. Bariatric surgery status 18,400. Ventral hernia without | | obstruction or gangrene 18,400. Nausea with vomiting, unspecified 18,400. | | Unspecified abdominal pain 18,400. Nonspecific mesenteric lymphadenitis May 10, 2019 | | [facility] [place] Emergency Nausea with vomiting, unspecified Solitary | | pulmonary nodule Anxiety disorder, unspecified Ventral hernia without obstruction | | or gangrene Unspecified abdominal pain Diarrhea, unspecified Allergy status to | | oth drug/meds/biol subst status Prsnl hx of TIA (TIA), and cereb infrc w/o resid | | deficits Other jail (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 Allergy status to penicillin November | | 2018 [facility]. [place] Emergency RIGHT LEG PAIN DUE TO FALL | | Strain of unsp musc/tend at lower leg level, right leg, init Aug 22, [address] [facility] [place] Emergency Other exterminator helper termite (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 Upper | | abdominal pain, unspecified Bariatric surgery status Allergy status to oth | | drug/meds/biol subst status Noninfective gastroenteritis and colitis, unspecified | | Obesity, unspecified Anxiety disorder, unspecified rn long term care (current) use of | | aspirin Allergy status to penicillin Personal history of pulmonary embolism | | Recent Inpatient Visit SummaryNo recorded inpatient visits. Care TeamProvider Specialty | | Phone Fax Service Dates Eagle Nino CHW Community Health Worker | | Jul 03, 2019 - Current JONES DAVISON D.M.D. Dentist: Engineering Secretary ([phone] | [phone] May 23, 2019 - Current Rob Tilley Manager Power/Care | | Coordinator Mar 27, 2018 - Current Bernard Hylton MD Internal Medicine: | | Pulmonary Disease Aug 23, 2018 - Current [employer] PortalThis patient has registered | | at the [facility] Emergency Department For more information | | visit: [email or web address] | | PLEASE NOTE: 1. Any care [...] completeness of information | | provided.? 2020 [employer]. - www.[employer] | | Allergy status to oth drug/meds/biol subst status | | Other jail (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 | | Allergy status to penicillin | | | |Jun 19, 2019 [facility] [place] Emergency | | senior care (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 | | Prsnl [...] intractable, without status migrainosus | | Other exterminator helper termite (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 | | Allergy status to oth drug/meds/biol subst status | | rn long term care (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 | | rn long term care (current) use of aspirin | | | |May 23, 2019 [facility] [place] | | Anxiety disorder, unspecified | | Acute embolism and thrombosis of deep veins of r up extrem | | Allergy status to penicillin | | Other exterminator helper termite (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 | | Pain in right arm | | senior care (current) use of aspirin | | Allergy status to oth drug/meds/biol subst status | | | |May 20, 2019 [facility] [place] Emergency | | Generalized abdominal pain | | Allergy status to oth drug/meds/biol subst status | | Unspecified abdominal pain | | Anxiety disorder, unspecified | | Other chronic pain | | Allergy status to penicillin | | rn long term care (current) use of aspirin | | Prsnl hx of TIA (TIA), and cereb infrc w/o resid deficits | | Other jail (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 | | | |May 13, 2019 [facility] and [facility] [place] Emergency | | 10,800. A303 | | 18,400. Bariatric surgery status | | 18,400. Ventral hernia without obstruction or gangrene | | 18,400. Nausea with vomiting, unspecified | | 18,400. Unspecified abdominal pain | | 18,400. Nonspecific mesenteric lymphadenitis | | | |May 10, 2019 [facility] [place] Emergency | | Nausea with vomiting, unspecified | | Solitary pulmonary nodule | | Anxiety disorder, unspecified | | Ventral hernia without obstruction or gangrene | | Unspecified abdominal pain | | Diarrhea, unspecified | | Allergy status to oth drug/meds/biol subst status | | Prsnl hx of TIA (TIA), and cereb infrc w/o resid deficits | | Other jail (current) drug therapy | | Allergy status to penicillin | | | |December 03, 2018 [facility]. [place] Emergency | | RIGHT LEG PAIN DUE TO FALL | | Strain of unsp musc/tend at lower leg level, right leg, init | | | |Aug 22, 2018 [facility] [place] Emergency | | Other exterminator helper termite (current) drug therapy | | Upper abdominal pain, unspecified | | Bariatric surgery status | | Allergy status to oth drug/meds/biol subst status | | Noninfective gastroenteritis and colitis, unspecified | | Obesity, unspecified | | Anxiety disorder, unspecified | | senior care (current) use of aspirin | | Allergy status to penicillin | | Personal history of pulmonary embolism | | | | | | | |Recent Inpatient Visit Summary | |No recorded inpatient visits. | | | |Care Team | |Provider Specialty Phone Fax Service Dates | |Eagle Nino CHW Community Health Worker Jul 03, 2019 - Current | |JONES DAVISON D.M.D. Dentist: Engineering Secretary May 23 019 - Current | |Rob Tilley Manager Power/Manager Pharmaceutical Mar 27, 2018 - Current | |Bernard Hylton MD Internal Medicine: Pulmonary Disease Aug 23, 2018 - Current | | | |[employer] | |This patient has registered at the [facility]art[facility] t | |For more information visit: [email or web address] | |PLEASE NOTE: | | 1. Any [...] information provided. | | | |? 2020 [employer]. - www.[employer] | + + + + + + + | Performing | Address | City/State/Zipcode | Phone Number | | Organization | | | | + + + + + | [facility] | [address] | [place], [place] | [phone] | | [employer] | [address] | [address] | | + + + + + [...] | DAILY, First dose on [facility] 08/18/19 | | AM PST | | [...] | | 12 HOURS, First dose on [facility] | | | | | | | [...] + + +---+---+---+ | HYDROmorphone 0.5 mg/mL HEALTH PROFESSIONAL | Rate/Dos | 08/20/19 | | | | | (ADULT STANDARD DOSE) in 0.9 % | e Verify | 20 4:12 | | | | | NaCl HEALTH PROFESSIONAL Dose: 0.2 mg, Lockout | | AM [...] | | | dose on [facility] 08/18/19 at 2200, | | PM PST [...] | | oral, DAILY, First dose on [facility] | | AM PST | | | [...] | | | | | NEEDED, Starting [facility] 08/18/19 at | | | | | [...]
--- OUTSIDE RECORDS SUMMARY | ~2019-12-02 | XMS | Encounter Summary ---
Demographics + + + | Address | [address] | | | [place] [address] | + + + | Home Phone [...] [place], [place] | | | | | [address] | | + + + + + | Ellie Vang | ECON | Unknown | | + + + + + Care Team Providers + +------+ + | Care Treatment Specialist Name | Role | Phone | + +------+ + | Fadi Goodrich DO | PCP | | + +------+ + Encounter Details +--------+ + + + + | Date | Type | Department | Care Team | Description | +--------+ + + + + | 10/27/ | Telephone | [facility] | Leslie Mistry, | | | 2017 | | [address] | PhD [address] [facility] | | | | | Mailcode: [id number] | [address] | | | | | [facility] | [place], [place] | | | | | and [place], | [address] | | | | | | [phone] | | | | | Floor [place], [place] | | | | | | [address] | | | | | | [phone] | | | +--------+ + + + [...] [address] | | | | | | [place], [place] | | | | | | [address] | | | | | | [phone] | | | | | | | | +--------+---------+ + + + documented as of this encounter Visit Diagnoses Not on filedocumented in this encounter"
--- OUTSIDE RECORDS SUMMARY | ~2019-12-02 | XMS | Encounter Summary ---
Demographics + + + | Address | [address] | | | [place] [address] | + + + | Home Phone [...] [place], [place] | | | | | [address] | | + + + + + | Ellie Vang | ECON | Unknown | | + + + + + Care Team Providers + +------+ + | Care Repeat Photocomposing Machine Operator Name | Role | Phone [...] [facility] at [facility] [address] | MD [address] [facility] | | | | | Jacy Flannery | Ryan Lesly | | | | | Mailcode: [place] | [place], [place] | | | | | [facility] and | [address] | | | | | [facility] | [phone] | | | | | [place], [place] | | | | | | [address] | | | | | | [phone] | | | +--------+ + + + [...] Flannery | | | | | | [place] | | | | | | [address] | | | | | | [phone] | | | | | | | | +--------+---------+ + + + documented as of this encounter Visit Diagnoses Not on filedocumented in this encounter"
--- OUTSIDE RECORDS SUMMARY | ~2019-12-02 | XMS | Encounter Summary ---
Demographics + + + | Address | [address] | | | [place] [address] | + + + | Home Phone [...] | Organization | [facility] | | | and Jeffana [...] Team Providers + +------+ + | Care Tying Machine Operator Name | Role | Phone [...] | | [address] | [facility] [address] | | | | | [place], [place] | [place] [address] | | | | | [address] | [phone] | | | | | [phone] | | | +--------+ + + + [...] RICHEY | | | | | | [place] [address] | | | | | | [phone] | | | | | | | [...] | | to assess segmental wall motion, Bradford visually estimates LVEF | | | >70%. [...] assess | | | segmental wall motion, Bradford visually estimates LVEF >70%. RV | | [...] not well visualized. MEASUREMENTS | | | Electric Truck Operator: JESSICA Authenticated by: Edson Cruz DO | [...] to assess | | segmental wall motion, Bradford visually estimates LVEF >70%. RV grossly NML. [...] | IVC was not well visualized. MEASUREMENTS Electric Truck Operator: HONEYuthenticated by: | | Edson Jones Date/Time: 01-02-2016 19:12:36 IMPRESSION: 1. See Dictation. | | TDS. Sinus. 2. Cardiac chamber dimensions grossly NML. LV systolic and diastolic | | functions grossly NML, unable to assess segmental wall motion, Bradford visually estimates | | LVEF >70%. RV [...] | |MEASUREMENTS | | | | | |Electric Truck Operator: JESSICA | |Authenticated by: Edson Cruz DO | |Report Date/Time: 01-02-2016 19:12:36 | | | |IMPRESSION: | |1. See Dictation. TDS. Sinus. 2. Cardiac chamber dimensions grossly NML. LV systolic and diastolic functions grossly NML, unable to assess segmental wall motion, Bradford visually es timates LVEF >70%. RV grossly | |NML. 3. Aortic valve sclerotic, no /AI | | observed. Mitral and Tricuspid valves grossly NML, Pulmonic valve not seen well. Trace T R. 4. No Pericardial effusion. 5. IVC not seen well. | + + documented in this encounter Visit Diagnoses Not on filedocumented in this encounter"
--- OUTSIDE RECORDS SUMMARY | ~2019-12-02 | XMS | Encounter Summary ---
Demographics + + + | Address | [address] | | | [place] [address] | + + + | Home Phone [...] [place], [place] | | | | | [address] | | + + + + + | Ellie Vang | ECON | Unknown | | + + + + + Care Team Providers + +------+ + | Care Fuels Engineer Name | Role | Phone | + +------+ + | Fadi Goodrich DO | PCP | | + +------+ + Encounter Details +--------+------+ + + + | Date | Type | Department | Care Team | Description | +--------+------+ + + + | 11/20/ | Lab | Laboratory at [facility] | | Morbid obesity with | | 2017 | | [address] | | BMI of 70 and over, | | | | [place], [place] | | adult ([facility]); | | | | [address] | | 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 | | | | | 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| | 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 ([facility]) | | + +--------+ + + + | VITAMIN D, | Routin | 11/20/2017 | Morbid obesity | Results for this | | 25-HYDROXY, SERUM | e | 10:01 AM | with BMI of 70 and | procedure are in the | | | | PDT | over, adult ([facility]) | results section. | | | | | 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| | 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 ([facility]) | | + +--------+ + + + | COMPLETE METABOLIC | Routin | 11/20/2017 | Morbid obesity | Results for this | | SET | e | 10:01 AM | with BMI of 70 and | procedure are in the | | (NA,K,CL,CO2,BUN,CRE | | PDT | over, adult ([facility]) | results section. | | AT,GLUC,CA,AST,ALT,B | | | Diabetes mellitus | | | MARGIE TOTAL,ALK | | | type 2 without | | | PHOS,ALB,PROT TOTAL) |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 ([facility]) | | + +--------+ + + + | CBC ONLY | Routin | 11/20/2017 | Morbid obesity | Results for this | | | e | 10:01 AM | with BMI of 70 and | procedure are in the | | | | PDT | over, adult ([facility]) | results section. | | | | | 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| | 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 ([facility]) | | + +--------+ + + + | FERRITIN | Routin | 11/20/2017 | Morbid obesity | Results for this | | | e | 10:01 AM | with BMI of 70 and | procedure are in the | | | | PDT | over, adult ([facility]) | results section. | | | | | 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| | 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 ([facility]) | | + +--------+ + + + | PTH, SERUM | Routin | 11/20/2017 | Morbid obesity | Results for this | | | e | 10:01 AM | with BMI of 70 and | procedure are in the | | | | PDT | over, adult ([facility]) | results section. | | | [...] | PDT | over, adult ([facility]) | results section. | | | [...] | use of insulin ([facility]) | | | [...] | + + + + + | [facility] | [address] | [place] [address] | | | SERVICES, [facility] FOR | | | | | HEALTH [...] [facility] | [address] | [place], [place] | | | SERVICES, LIPID | [address] | [address] | | + + + + + [...] | + + + + + | [facility] | [address] | [place] [address] | | | SERVICES, SPECIAL | CLARENCE [...] INTERPRETIVE | 70 - 180 nmol/L | [facility] | | | WHOLE | INFORMATION: Vitamin [...] | | | | | determined by [employer] | | | | | | Laboratories. See | | | | | | Compliance Statement B: | | | | | | [employer]/CSPerformed | | | | | | by eegoes,[address] | | | | | | [facility],[place] | | | | | | [address] | | | | | | [phone]. | | | | | | comIsmael [...] [facility] | [address] | [place], [place] | | | [facility] | | [address] | | + + [...] | + + + + + | [facility] | [address] | [place] [address] | | | SERVICES, CORE | CLARENCE [...] [facility] | [address] | [place] [address] | | | SERVICES, CORE | PARK [...] [facility] | [address] | [place] [address] | | | SERVICES, CORE | CLARENCE [...] [facility] | [address] | [place] [address] | | | SERVICES, CORE | PARK [...] | + + + + + | [facility] | [address] | [place] [address] | | | LYDIA RANGEL | CLARENCE [...] [facility] | [address] | [place] [address] | | | SERVICES, CORE | CLARENCE [...]
--- OUTSIDE RECORDS SUMMARY | ~2019-12-02 | XMS | Encounter Summary ---
Demographics + + + | Address | [address] | | | [place] [address] | + + + | Home Phone [...] Organization | [facility] | [...] + +------+ + | Care Project Management Engineer Name | Role | Phone | + +------+ + PCP | Unavailable | + +------+ + Encounter Details +--------+ + + + + | Date | Type | Department | Care Team | Description | +--------+ + + + + | 10/07/ | Orders Only | [facility] | Conversion | | | 2018 | | NEPHROLOGY JESUS | Transaction, | | | | | [address] | Provider Unknown | | | | | [address] [place] [address] | | | | | | [address] | (Fax) | | | | | [phone] | | | +--------+ + + + [...] RICHEY | | | | | | [place] [address] | | | | | | [phone] | | | | | | | [...]
--- OUTSIDE RECORDS SUMMARY | ~2019-12-02 | XMS | Encounter Summary ---
Demographics + + + | Address | [address] | | | [place] [address] | + + + | Home Phone [...] [place], [place] | | | | | [address] | | + + + + + | Ellie Vang | ECON | Unknown | | + + + + + Care Team Providers + +------+ + | Care Electronic Equipment Maint Tech Name | Role | Phone | [...] Flannery | | | | | | [place], [place] | | | | | | [address] | | | | | | [phone] | | | | | | | | +--------+---------+ + + + documented as of this encounter Visit Diagnoses Not on filedocumented in this encounter"
--- OUTSIDE RECORDS SUMMARY | ~2019-12-02 | XMS | Encounter Summary ---
Demographics + + + | Address | [address] | | | [place] [address] | + + + | Home Phone [...] [place], [place] | | | | | [address] | | + + + + + | Ellie Vang | ECON | Unknown | | + + + + + Care Team Providers + +------+ + | Care Potato Chip Sorter Name | Role | Phone | [...] [place] | | | | | | [address] | | | | | | [phone] | | | | | | | | +--------+---------+ + + + documented as of this encounter Visit Diagnoses Not on filedocumented in this encounter"
--- OUTSIDE RECORDS SUMMARY | ~2019-12-02 | XMS | Encounter Summary ---
Demographics + + + | Address | [address] | | | [place] [address] | + + + | Home Phone [...] [place], [place] | | | | | [address] | | + + + + + | Ellie Vang | ECON | Unknown | | + + + + + Care Team Providers + +------+ + | Care Tape Deck Installer Name | Role | Phone | [...] | | (HCC) | [address] | [address] | | | | | Procedures | [place], [place] | [place], [place] | | | | | CONSULT TO | [address] | [address] | | | | | CAR | Phone: | Phone: | | | | | PREVENTATIVE | [phone] | [phone] | | | | | [facility] - | Fax: | Fax: | | | | | LIPIDS | [phone] | [phone] | +--------+--------+ + + + + Encounter Details +--------+---------+ + + + | Date | Type | Department | Care Team | Description | +--------+---------+ + + + | 09/11/ | Office | Cardiology | Olga Lidia Montanez, | Morbid obesity with | | 2017 | Visit | Preventive at [facility] | [address] | BMI of 70 and over, | | | | [address] | [address] | adult (HCC) (Primary | | | | Mailcode: CH9A | [place], [place] | Dx) | | | | [facility] | [address] | | | | | and Healing, | | | | | | [address] | | | | | | [place], [place] | | | | | | [address] | | | | | | [phone] | | | +--------+---------+ + + + [...] appointment, Dietitian: Olga Lidia Montanez RD, LD [facility] Bariatric department (to reschedule classes): [phone] Goals: 1. Try to stop buying Pop-Tarts 2. Replace afternoon snack (think of this as lunch) with vegetables or fruit -cucumbers, carrots, broccoli, cauliflower, etc. -try making ranch dip w/ nonfat plain yogurt (regular or Bolivian) (or mix yogurt w/ salsa; o r chipotle hot sauce & inaja juice) 3. Snack ideas: -fruit -vegetables (with hummus or yogurt dip) -Bolivian yogurt - light (have w/ fruit if you're still hungry) -applesauce - unsweetened, w/ lowfat string cheese -1/4 cup nuts -lowfat string cheese -low-fat or non-fat cottage cheese w/ tomatoes 4. Aim for 60-80 grams of protein a day (see list) 5. Add Bolivian yogurt to breakfast Heart Protection Kitchen from [facility] Healthy eating made simple. What: FREE heart-healthy cooking demonstrations led by guest eyelet riveter and nutrition experts. Samples are provided! Where: [facility] ([facility]), September, 2nd floor teaching kitchen When: All classes from 11:00am-12:00pm ? October 12 (led by Dr. Paulino Carreno MD) Please contact Keerthi Boyer at [phone] or email at [email or web address] for information on upcoming classes and to register. Space is limited - reserve your seat today! Want more info on what to eat? Watch the [employer] video, "Healthy Eating 101," at [email or web address] documented in this encounter Progress Notes Olga Lidia Montanez RD - 09/11/2017 2:30 PM PSTFormatting of this note might be different fro m the original. [facility], Nutrition Consultation Referring provider: Dr. Randell Franks MD Referring diagnosis: obesity, HF, DM2 Visit type: Initial; zhul-of-zqdy visit with patient Questions/Information desired today: Hoping [...] restarting the bariatric program; getting PT in [place] & has nutrition classes scheduled. Still has bariatric notebooks at home. Per [employer] message from Dr. Pandey 09/10/17: "Just tell [...] & 1% milk; occ w/ applesauce or Bolivian yogurt No L S (3pm): pop-tart or [...] it's too expensive. Occ fruit bowls from [facility]. Vegetables: every day w/ dinner - usually [...] in PT 2x/week for bariatric program (in [place]) UBW: 385-391 lbs Max weight: 529 lbs Weight history: lost from 495 lbs to 383 lbs in 2158-9279 on Atkins diet ANTHROPOMETRICS: Height: Ht Readings from Last 1 Encounters: 09/11/17 1.549 m (5' 1") Weight: Wt Readings from Last 1 Encounters: 09/11/17 176.5 kg (389 lb 3.2 oz) 11/28/16 179.443 kg (395 lb 10 oz) Body mass index is 73.54 kg/m. Weight pipe changer the past year: 6 lb wt [...] weight loss; anticipate excellent compliance in the [facility] surgery program. Currently eating energy-dense/nurient-poor foods [...] of protein a day - add light Bolivian yogurt to breakfast; include lean protein with PM snack/lunch 3. D/c carbonated beverages (e.g., diet soda); replace with water, Crystal Light, diet deca f tea, or other calorie-free still beverage Contact information was provided; call or send Q[employer] message to dietitian with any questi ons. [...] Flannery | | | | | | [place], [place] | | | | | | [address] | | | | | | [phone] | | | | | | | | +--------+---------+ + + + documented as of this encounter Visit Diagnoses + + | Diagnosis | + + | Morbid obesity with BMI of 70 and over, adult (HCC) - Primary | + + documented in this encounter
--- OUTSIDE RECORDS SUMMARY | ~2019-12-02 | XMS | Encounter Summary ---
Demographics + + + | Address | [address] | | | [place] [address] | + + + | Home Phone [...] [place], [place] | | | | | [address] | | + + + + + | Ellie Vang | ECON | Unknown | | + + + + + Care Team Providers + +------+ + | Care Warranty Administrator Name | Role | Phone | [...] REPAIR | | | | [facility] | [address] | | | | | Hospital Admitting | [place], [place] | | | | | Desk Located on the | [address] | | | | | 9th floor | [phone] | | | | | [place], [place] | | | | | | [address] | | | +--------+---------+ + + + [...] the gallo. 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 She di d have difficulty [...] condition. She will follow up at the [facility] with Dr. Tiwari in 2- 3 [...] by mouth once daily at bedtime. CALCIUM CRB&TIY-K3-SVY19-GENIS ORAL Take 2 tablets by mouth two [...] daily. ASK your doctor about these medications SECURITY SITE SUPERVISOR THYROID 30 mg Tab tab Generic drug: [...] the prescribed narcotic-opioid (e.g. oxycodone, hydrocodone, Vicodin, Garfield, Percocet, Dilaudid) as needed. However, Vicodin/Garfield and Percocet contain acetam inophen in the [...] Narcotic-opioid pain medications (e.g. oxycodone, hydrocodone, Vicodin, Garfield, Percocet, Di laudid) can be constipating, therefore you should take a stool softener on the same day as s tarting your narcotic pain medicine. Options include: Milk of Magnesia: 2 Tablespoons Twice daily Colace (=Docusate): 1 pill Twice daily Miralax: 1 Tablespoon (17 grams) daily (check bottle for mixing instructions) While these are some recommendations, any yrci-lnl-kzefjhl stool softener should work, and generics are [...] and plan of care. JONES TIWARI MD [facility] [address] [place] [address] documented in this encounter Discharge Instructions Discharge [...] hours by calling the surgery office at [phone]. After hours, weekends and holidays, you may call the hospital braider operator at [phone] and have the sfdc consultant [place] [facility] for general surgery paged. Discharge Instr [...] the gallo. 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 She did have dif ficulty [...] She will follow up at the [facility] with Dr. Tiwari in weeks. She [...] the prescribed narcotic-opioid (e.g. oxycodone, hydrocodone, Vicodin, Garfield, Percocet, Dilaudid) as needed. However, Vicodin/Garfield and Percocet contain acetam inophen in the [...] Narcotic-opioid pain medications (e.g. oxycodone, hydrocodone, Vicodin, Garfield, Percocet, Di laudid) can be constipating, therefore you should take a stool softener on the same day as s tarting your narcotic pain medicine. Options include: Milk of Magnesia: 2 Tablespoons Twice daily Colace (=Docusate): 1 pill Twice daily Miralax: 1 Tablespoon (17 grams) daily (check bottle for mixing instructions) While these are some recommendations, any cnos-xdk-horrhqw stool softener should work, and generics are fine to use. Increase your fluids, especially your intake of water Increase your activity. Walk frequently. ANTICOAGULATION: We recommend you make an appointment to be seen in your local anticoagulation clinic on Thu08/25/19 to recheck your INR and for ongoing management of your warfarin. FOLLOW-UP: Please call Dr. Tiwari's office ([phone]) to schedule a follow-up appointment for 2-3 [...] | | 0 | | | | CRB&LSW-[id number]-GEN | mouth two times | | | [...] + + +---------+ + + | thyroid (SECURITY SITE SUPERVISOR | Take 30 mg by mouth [...] assist PRN. Anticipate discharge michelle Chandler MD [facility], PGY-1 Green Sheet Rock Taper Helper Pager: [phone] signed by Jones Tiwari MD at 08/22/2019 [...] dc in 2-3 days Gadiel Chandler MD [facility], PGY-1 Green Sheet Rock Taper Helper Pager: [phone] Associated attestation - Jones Tiwari MD - 08/21/2019 9:57 AM PSTI performed a hist ory and physical examination of the patient and discussed her management with the resident. I reviewed the resident s note and agree with the documented findings and plan of care. JONES TIWARI MD [facility] [address] [place] [address] Valencia Zamora MD - 08/20/2019 8:42 AM [...] well. 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 PROFESSOR - ppx lovenox today - therapeutic lovenox [...] care -Multimodal pain control Joselyn Everett MD [facility] General Surgery PGY1 [id number] Gadiel Armstrong MD - 08/19/2019 12:34 PM [...] hernia repair with mesh Gadiel Chandler MD [facility], PGY-1 Green Sheet Rock Taper Helper Pager: [phone] documented in this encounter Plan of Treatment +--------+---------+ + + + | Date | Type | Specialty | Care Team | Description | +--------+---------+ + + + | 03/15/ | Office | Cardiology | Aly Franks, | | | 2019 | Visit | | [address] | | | | | | [place], [place] | | | | | | [address] | | | | | | [phone] | | | | | | | [...] [facility] | [address] | [place] [address] | | | SERVICES, CORE | [address] [...] [facility] | [address] | [place] [address] | | | SERVICES, CORE | [address] | | | + + + + + INR (08/22/2019 10:09 AM PST) + +-------+ + + + | Component | Value | Ref Range | Performed | Pathologist | | | | | At | Signature | + +-------+ + + + | INR | 1.08 | 0.90 - 1.20 INR | [facility] | | | | | [...] [facility] | [address] | [place] [address] | | | SERVICES, CORE | CLARENCE [...] - [facility] | [address] | [place], [place] | | | [place] POINT OF CARE | [address] | [address] | | | TESTS | | | [...] [facility] | [address] | [place], [place] | | | [place] POINT OF CARE | [address] | [address] | | | TESTS | | | [...] [facility] | [address] | [place] [address] | | | SERVICES, | [address] [...] [facility] | [address] | [place] [address] | | | SERVICES, | [address] [...] [facility] | [address] | [place], [place] | | | JUSTINE DAWN OF JAKY | [facility] | [address] | | | TESTS | | | [...] | [facility] | | | GRAVITY | [facility] performed by | | LABORATORY | | [...] [facility] | [address] | [place] [address] | | | SERVICES, CORE | CLARENCE [...] | + + + + + | [facility] | [address] | [place] [address] | | | SERVICES, | [address] [...] CENTER LAB[facility]ORY | [address] | [place] [address] | | | SERVICES CORE | CLARENCE [...] [facility] | [address] | [place] [address] | | | LYDIA RANGEL | CLARENCE [...] [facility] | [address] | [place] [address] | | | SERVICES, LYDIA | CLARENCE [...] [facility] | [address] | [place] [address] | | | SERVICES, CORE | PARK [...] | | | LABORATORY | | | [place] | | | SERVICES, | | | [...] | + +---------+ + + + | ALBUMIN/SUTART | 0.8 (L) | 0.9 - 2.0 [...] + | [facility] | [address] | [place] [address] | | | SERVICES, LYDIA | [address] | | | + + + + + ED INFORMATION EXCHANGE (08/18/2019 1:47 PM PST) + + | Specimen | + + | | + + + + + | Narrative | Performed At | + + + | COLLECTIVE?NOTIFICATION?08/18/2019 13:47?DYLAN ROMERO?MRN: | COLLECTIVE | | [id number] Criteria Met 5 Visits In 12 Months Has | MEDICAL | | Guidelines PDMP Security and Safety No recent Security Events | [employer] | | currently on file ED Care Guidelines from [employer] [facility] | | | Last Updated: 12/06/18 9:53 AM Care Coordination: Receiving | | | mental health services with [employer].? Please contact [employer] for | | | mental health concerns.? [facility]: [phone]? | | | Kishan: [phone].? These are guidelines and the provider | | | should exercise clinical judgment when providing care. Care | | | History Medical/Surgical 05/24/19 12:00 AM [facility] | | | Hospital PATIENT HAS AN APT ON 06/16/[address] HYLTON. | | | 05/11/19 12:00 AM [facility] Patient is | | | currently established with [facility]. If patient is seen in | | | the ED during business hours. Please contact CHWs at [facility] | | | Clinic. Care Recommendation: [...] 08/23/18 12:00 AM | | | [facility] PATIENT HAS A PCP APT TO ESTABLISH | | | CARE ON 10/04/18 @ 10:00AM WITH DR HYLTON. Flags | | | [place] Disparity [place] - [place] | | | Dis[place]ity [place]) to help support Medicaid members with mental | | | illness. [facility] uses claims data with a [...] | are updated weekly. / Attributed By: [facility] ([facility]CA) / | | | Attributed On: 08/09/2019 [...] (12 | | | mo.) Facility Visits [facility] 1 [facility] and | | | [facility] 2 [facility] 7 Total 10 Note: | | | Visits indicate total known visits. Recent Emergency Department | | | Visit Summary Date Facility City State Type Diagnoses or Chief | | | Complaint Aug 18, 2019 [facility] [place] | | | [place] Emergency 10,800. amr Jun 25, 2019 [facility] | | | [place] Emergency alf (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 | | | Anxiety disorder, unspecified Cellulitis of abdominal wall | | | Acute embolism and thrombosis of deep veins of r up extrem | | | Nicotine dependence, unspecified, uncomplicated Migraine, unsp, | | | not intractable, without status migrainosus Unspecified | | | abdominal pain Allergy status to oth drug/meds/biol subst status | | | Other prison (current) drug therapy Allergy status to | | | penicillin Jun 19, 2019 [facility] [place] | | | [...] Jun 01, 2019 | | | [facility] [place] Emergency Headache Allergy | | | status to penicillin Anxiety disorder, unspecified | | | Obesity, unspecified Migraine, unsp, not intractable, without | | | status migrainosus Other terminal press operator (current) drug therapy | | | Allergy status to oth drug/meds/biol subst status alf | | | (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 alf (current) use of | | | aspirin May 23, 2019 [facility] [place] Emergency | | | Anxiety disorder, unspecified Acute embolism and thrombosis of | | | deep veins of r up extrem Allergy status to penicillin | | | Other terminal press operator (current) drug therapy Pain in right [...] | | | Allergy status to penicillin alf (current) use of | | | aspirin Prsnl hx of TIA (TIA), and cereb infrc w/o resid | | | deficits Other prison (current) drug therapy May 13, | | | 2019 [facility] and [facility] [place] Emergency | | | 10,800. A303 18,400. Bariatric surgery status 18,400. | | | Ventral hernia without obstruction or gangrene 18,400. Nausea | | | with vomiting, unspecified 18,400. Unspecified abdominal pain | | | 18,400. Nonspecific mesenteric lymphadenitis May 10, 2019 [facility] | [facility] [place] Emergency Nausea with vomiting, | | | unspecified Solitary pulmonary nodule Anxiety disorder, | | | unspecified Ventral hernia without obstruction or gangrene | | | Unspecified abdominal pain Diarrhea, unspecified Allergy | | | status to oth drug/meds/biol subst status Prsnl hx of TIA (TIA), | | | and cereb infrc w/o resid deficits Other terminal press operator (current) | | | drug therapy Allergy status to penicillin December 03, 2018 [facility] | [facility] [place] Emergency RIGHT LEG PAIN DUE TO FALL | | | Strain of unsp musc/tend at lower leg level, right leg, init | | | Aug 22, 2018 [facility] [place] Emergency Other | | | terminal press operator (current) drug therapy Upper abdominal pain, | | | unspecified Bariatric surgery status Allergy status to oth | | | drug/meds/biol subst status Noninfective gastroenteritis and | | | colitis, unspecified Obesity, unspecified Anxiety | | | disorder, unspecified alf (current) use of aspirin | | | Allergy status to penicillin Personal history of pulmonary | | | embolism Recent Inpatient Visit Summary No recorded | | | inpatient visits. Care Team Provider Specialty Phone Fax Service | | | Dates Eagle Nino CHW Community Health Worker | | | Jul 03, 2019 - Current JONES DAVISON D.M.D. Dentist: | | | Group Insurance Specialist May 23, 2019 - | | | Current Rob Tilley Gas Load Dispatcher/Detective Supervisor ([phone] | | | [phone] Mar 27, 2018 - Current Bernard Hylton MD Internal | | | Medicine: Pulmonary Disease Aug 23, 2018 - Current | | | [employer] Portal This patient has registered at the [facility] | | | [facility] Emergency Department For more information | | | visit: | | | [email or web address] | | | [email or web address] a PLEASE NOTE: 1. Any care recommendations [...] or completeness of information provided. ? 2020 [employer] | | | [employer]. - www.[email or web address] | | + + + + + [...] on fileED Care Guidelines | | from [employer] - [place] Updated: 12/06/18 9:53 AM Care Coordination:Receiving | | mental health services with [employer].? Please contact [employer] for mental health | | concerns.? Sarah/Toni Centeno: [phone]? Kishan: [phone].?These are | | guidelines and the provider should exercise clinical judgment when providing care.Care | | HistoryMedical/Pxwpinnm18/29/19 12:00 AM [facility] PATIENT HAS AN APT | | ON 06/16/[address] HYLTON.05/11/19 12:00 AM [facility] Patient is | | currently established with [facility]. If patient is seen in the ED during | | business hours. Please contact CHWs at [facility].Care Recommendation:This | | patient has [...] providing | | care.08/23/18 12:00 AM [facility] PATIENT HAS A PCP APT TO ESTABLISH CARE | | ON 10/04/18 @ 10:00AM WITH DR HYLTON. [place] ED Disparity Measure - [place] has | | developed a flag ([place] Disparity [place]) to help support Medicaid members with | | mental illness. [facility] uses claims data with a [...] | | updated weekly. / Attributed By: [facility] ([facility]CA) / Attributed On: | | 08/09/2019 Prescription [...] Count (12 mo.)Facility Visits [facility] 1 [facility] | [facility] 2 [facility] 7 Total 10 Note: Visits indicate | | total known visits. Recent Emergency Department Visit SummaryDate Facility City State | | Type Diagnoses or Chief Complaint Aug 18, 2019 [facility] | | [place] Emergency 10,800. amr Jun 25, 2019 [facility] [place] Emergency | | alf (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 Anxiety disorder, unspecified | | Cellulitis of abdominal wall Acute embolism and thrombosis of deep veins of r up | | extrem Nicotine dependence, unspecified, uncomplicated Migraine, unsp, not | | intractable, without status migrainosus Unspecified abdominal pain Allergy status | | to oth drug/meds/biol subst status Other terminal press operator (current) drug therapy Allergy | | status to penicillin Jun 19, 2019 [facility] [place] Emergency terminal press operator | [...] | | intractable, without status migrainosus Other terminal press operator (current) drug therapy | | Allergy status to oth drug/meds/biol subst status alf (current) use of | | anticoagulants terminal press operator (current) use of aspirin May 23, 2019 [facility] | | [place] Emergency Anxiety disorder, unspecified Acute embolism and thrombosis of | | deep veins of r up extrem Allergy status to penicillin Other terminal press operator (current) | | drug therapy Pain [...] and cereb infrc w/o resid deficits Other terminal press operator (current) drug | | therapy May 13, 2019 [facility] [place] Emergency | | 10,800. [...] infrc w/o resid | | deficits Other prison (current) drug therapy Allergy status to penicillin May | | 2018 [facility]. [place] Emergency RIGHT LEG PAIN DUE TO FALL | | Strain of unsp musc/tend at lower leg level, right leg, init Aug 22, [address] [facility] [address] [facility] [place] Emergency Other terminal press operator (current) drug therapy Upper | | abdominal pain, unspecified Bariatric surgery status Allergy status to oth | | drug/meds/biol subst status Noninfective gastroenteritis and colitis, unspecified | | Obesity, unspecified Anxiety disorder, unspecified alf (current) use of | | aspirin Allergy status to penicillin Personal history of pulmonary embolism | | Recent Inpatient Visit SummaryNo recorded inpatient visits. Care TeamProvider Specialty | | Phone Fax Service Dates Eagle Nino CHW Community Health Worker | | Jul 03, 2019 - Current JONES DAVISON D.M.D. Dentist: Group Insurance Specialist [phone] | | [phone] May 23, 2019 - Current Rob Tilley Gas Load Dispatcher/Care | | Coordinator Mar 27, 2018 - Current Bernard Hylton MD Internal Medicine: | | Pulmonary Disease Aug 23, 2018 - Current [employer] [facility] patient has registered | | at the [facility] [employer] Emergency Department For more information | | visit: [email or web address] | | PLEASE NOTE: 1. Any care [...] completeness of information | | provided.? 2020 [employer]. - www.[email or web address] | | Allergy status to oth drug/meds/biol subst status | | Other prison (current) drug therapy | | Allergy status to penicillin | | | |Jun 19, [address] [facility] [facility] [place] [place] Emergency | | alf (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 | | Prsnl [...] unspecified | | | |Jun 01, 2019 [facility] [place] Emergency | | Headache | | Allergy status to penicillin | | Anxiety disorder, unspecified | | Obesity, unspecified | | Migraine, unsp, not intractable, without status migrainosus | | Other terminal press operator (current) drug therapy | | Allergy status to oth drug/meds/biol subst status | | alf (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 | | terminal press operator (current) use of aspirin | | | |May 23, 2019 [facility] [place] Emergency | | Anxiety disorder, unspecified | | Acute embolism and thrombosis of deep veins of r up extrem | | Allergy status to penicillin | | Other terminal press operator (current) drug therapy | | Pain in right arm | | terminal press operator (current) use of aspirin | | Allergy status to oth drug/meds/biol subst status | | | |May 20, 2019 [facility] [facility] [place] Emergency | | Generalized [...] Other prison (current) drug therapy | | | |May 13, 2019 [facility] [place] Emergency | | 10,800. A303 | | 18,400. Bariatric surgery status | | 18,400. Ventral hernia without obstruction or gangrene | | 18,400. Nausea with vomiting, unspecified | | 18,400. Unspecified abdominal pain | | 18,400. Nonspecific mesenteric lymphadenitis | | | |May 10, 2019 [facility] [place] Emergency | | Nausea [...] [place] Emergency | | Other terminal press operator (current) drug therapy | | Upper [...] - Current | |JONES DAVISON D.M.D. Dentist: Group Insurance Specialist May 23, 2 019 - Current | |Rob Tilley Gas Load Dispatcher/Detective Supervisor Mar 27, 2018 - Current | |Bernard Hylton MD Internal Medicine: Pulmonary Disease Aug 23, 2018 - Current | | | |[employer] Portal | |This patient has registered at the [facility] and [facility] Emergency Departmen t | |For more information visit: [email or web address] | |PLEASE NOTE: | | 1. Any [...] information provided. | | | |? 2020 [facility] - www.Optensity | + + + + + + + | Performing | Address | City/State/Zipcode | Phone Number | | Organization | | | | + + + + + | [employer] | [address] | [place], [place] | [phone] | | [employer] | [address] | [address] | | + + + + + [...] | | First dose on [facility] 08/18/19 at | | PM PST | [...] | | First dose on [facility] 08/18/19 at | | AM PST | [...]
--- OUTSIDE RECORDS SUMMARY | ~2019-12-02 | XMS | Encounter Summary ---
Demographics + + + | Address | [address] | | | [place] [address] | + + + | Home Phone [...] [place], [place] | | | | | [address] | | + + + + + | Ellie Vang | ECON | Unknown | | + + + + + Care Team Providers + +------+ + | Care Livestock Farmers Name | Role | Phone | + [...] | | 2018 | | Center at [facility] [address] | MD [address] | | | | | [address] | [place], [place] | | | | | Mailcode: [place] | [address] | | | | | [facility] and | [phone] | | | | | [place] [address] | | | | | | [place], [place] | | | | | | [address] | | | | | | [phone] | | | +--------+--------+ + + + [...] [address]ann[address] | | | | | | [place], [place] | | | | | | [address] | | | | | | [phone] | | | | | | | | +--------+---------+ + + + documented as of this encounter Visit Diagnoses Not on filedocumented in this encounter"
--- OUTSIDE RECORDS SUMMARY | ~2019-12-02 | XMS | Encounter Summary ---
Demographics + + + | Address | [address] | | | [place] [address] | + + + | Home Phone [...] [place], [place] | | | | | [address] | | + + + + + | Ellie Vang | ECON | Unknown | | + + + + + Care Team Providers + +------+ + | Care Desk Officer Name | Role | Phone | [...] | | | | | bypass | [place], | [facility], | | | | | Nausea and | [place] | 10th Floor | | | | | vomiting, | [address] | [place], [place] | | | | | intractabili | Phone: | [phone] | | | | | ty of | | Phone: | | | | | vomiting not | Fax: | [phone] | | | | | specified, | [phone] | Fax: | | | | | unspecified | | [phone] | | | | | vomiting | [...] | | | | | | CONTRAST RI | | | | | | | CT SCAN OF | | | | | | | ABDOMEN | | | | | | | CONTRAST RI | | | | | | | [...] | | | | | bypass | [place], | Mailcode: | | | | | Nausea and | [place] | [facility] | | | | | vomiting, | [address] | for Health | | | | | intractabili | Phone: | and Healing, | | | | | ty of | [phone] | Building 1, | | | | | vomiting not | Fax: | 5th Floor | | | | | specified, | [phone] | [place], [place] | | | | | unspecified | | [address] | | | | | vomiting | | Phone: | | | | | type | | [phone] | | | | | Diarrhea, | [...] Closed | | Gastroenterol | Diagnoses | [facility], | Gas Endo | | | | ogy | History of | Keren W, | [address] | | | | | Nilesh-en-Y | AGACNP [address] | | | | | gastric | [address] | Mailcode: | | | | | bypass | [place], | [address] | | | | | Nausea and | [place] | for Health | | | | | vomiting, | [address] | and Healing, | | | | | intractabili | Phone: | Building 2 | | | | | ty of | | [place], [place] | | | | | vomiting not | Fax: | [address] | | | | | specified, | [phone] | Phone: | | | | | unspecified | | [phone] | | | | | vomiting | | Fax: | | | | | type | | [phone] | | | | | Diarrhea, | [...] | | | | | | | RI UPPER GI | | | | | [...] | [facility] | | | with [facility] SPECIALIST | | hypertension | [address] | [address] | | | | | Right | [address] | [address] | | | | | heart | [facility] [place] | Mailcode: | | | | | failure | [address] | [place] for | | | | | ([facility]) Type | Phone: | Health and | | | | | 2 diabetes | [phone] | Healing, | | | | | mellitus | Fax: | Building 2 | | | | | without | [phone] | [place], [place] | | | | | complication | | [address] | | | | | , with | | Phone: | | | | | long-term | | | | | | | current use | | Fax: | | | | | of insulin | | [phone] | | | | | ([facility] [...] | | [address] | Ave [place], [place] | (Primary Dx); Nausea | | | | Mailcode: Center | [address] | and vomiting, | | | | for Health and | | intractability of | | | | Healing, Building 2 | | vomiting not | | | | [place], [place] | | specified, | | | | [address] | | unspecified vomiting | | | | [phone] | | type; Diarrhea, | | | [...] getting fluids at a local clinic in [place] -I will contact you if further testing is indicated -follow up with once of our surgeons once testing is complete -get some protein de la o--isopure or premier protein de la o. documented in this encounter Progress Notes Melissa Garay RN - 03/01/2019 1:50 PM PDTSpoke with patient's PCP office [phone] and notified them that Infusion unit at [facility] (fax [phone]) requires a provider with privileges there to sign the IV infusion orders. Since Dr. Cardenas is out on maternity leave, SOFI Ulrich will check with provider covering. Infusion order and chart not e faxed to PCP at [phone]. Patient notified. harli Zayas - 03/01/2019 1:50 [...] Allergic rhinitis Anemia Anxiety Bipolar disorder ([facility]) Chronic wound infection of abdomen from 2010 Cough Depression Diverticulitis of colon Dizziness Glaucoma Heart burn Hemorrhoids Hernia of abdominal wall Incisional hernia, incarcerated 2012 Insomnia Irregular periods Kidney stone Leaking of urine Leg sore Lymphedema Morbid obesity with body mass index of 70 and over in adult ([facility]) Myalgia and myositis Nausea Neck pain Numbness Osteoarthritis of knee Palpitations Pneumonia Shortness of breath Staphylococcal infection Stroke ([facility]) TIA (transient ischemic attack) due [...] limb 150 cm or less 8 [facility] Social History Socioeconomic History [...] file Gets together: Not on file Attends hinduism service: Not on file Active member of club or organization: Not on file Attends meetings of clubs or organizations: Not on file Relationship status: Not on file Other Topics Concern Not on file Social History Narrative Updated 11/09/15 She lives in [place] with her mother and her sister (also her caregiver) lives in an apa rtment/duplex below. She has 2 grandchildren (age 4 and 7) who live with her daughter and son-in-law Her boyfriend lives in [place] HFpEF, DM2, HTN, Sleep Apnea (unable to [...] program here and refer her to our charge master specialist who also has expertise in physical [...] buccal film, , Disp: , Rfl: CALCIUM CRB&SEY-Y3-GZN75-GENIS ORAL, Take 2 tablets by mouth two [...] oral tablet, Take 1 tablet by mo [facility] once daily., Disp: 90 tablet, [...] be administered closer to her home in [place]. LR 1-2 L 3 times weekly, until [...] to plan and will call and/or send Deolan message if any issues. Start time 1422, end time 1455. I spent a total of 33 minutes face to face with this patie nt. Over 50% of visit was in counseling. ALBINA Perrin Bariatric Surgery Nurse Practitioner [facility] | [address] | [place] | [address] | documented in th is encounter Plan of Treatment +--------+---------+ + + + | Date | Type | Specialty | Care Team | Description | +--------+---------+ + + + | 03/15/ | Office | Cardiology | Randell Franks, | | | 2019 | Visit | | [address] | | | | | | [place], [place] | | | | | | [address] | | | | | | [phone] | | | | | | | [...] Flynn MD | | Dictation initiated: Jamel lFynn MD 03/22/2019 12:50 PM | | | [...] + | [facility] | [address] | [place] [address] | | | SERVICES, CORE | PARK [...] B: | | | | | | Giftikiuplab.com/CSPerformed | | | | | | by [facility],[address] | | | | | | [place] | | | | | | [address] | | | | | | [phone].Giftikiuplab. | | | | | | Ismael [...] [facility] | [address] | [place], [place] | | | UNIV PTH - INTFC | | [address] | | + + + + + [...] SERUM | Natalia P[address] [facility],[place] | | PTH - INTFC | | | | [address] | | | | | | [phone].Makoolab. | | | | | | comIsmael [...] B: | | | | | | Makoolab.SaySwap/CS | | | | + + + + + + + + | Specimen | + + | Blood - Blood | | (substance) | + + + + + + + | Performing | Address | City/State/Zipcode | Phone Number | | Organization | | | | + + + + + | [facility] | [address] | [place], [place] | | | UNIV PTH - INTFC | | [address] | | + + + + + [...] + | [facility] | [address] | [place] [address] | | | CLAIRE, LYDIA | PARK [...] + | [facility] | [address] | [place] [address] | | | LYDIA RANGEL | CLARENCE [...] | | | | | determined by [employer] | | | | | | Laboratories. See | | | | | | Compliance Statement B: | | | | | | [facility].SaySwap/CSPerformed | | | | | | by [facility],[address] | | | | | | Natalia Parson, [facility],[place] | | | | | | [address] | | | | | | [phone].Makoolab. | | | | | | com, [...] [facility] | [address] | [place], [place] | | | UNIV PTH - INTFC | | [address] | | + + + + + [...] INTFC | | | | determined by [employer] | | | | | | Koru. See | | | | | | Compliance Statement B: | | | | | | [facility].SaySwap/CSPerformed | | | | | | by [facility],[address] | | | | | | [place]ia [place], [place] | | | | | | [address] | | | | | | [phone].[facility] ICU [facility]. | | | | | | [facility] centerIsmael MD, | | | | [...] [facility] | [address] | [place], [place] | | | UNIV PTH - INTFC | | [address] | | + + + + + [...] + | [facility] | [address] | [place] [address] | | | SERVICES, CORE | CLARENCE [...] B: | | | | | | [facility].SaySwap/CSPerformed | | | | | | by [facility],[address] | | | | | | [facility] | | | | | | [address] | | | | | | [phone].[facility] ICU Care. | | | | | | com, [...] [facility] | [address] | [place], [place] | | | UNIV PTH - INTFC | | [address] | | + + + + + [...] LABORATORY | [address] | [place] [address] | | | SERVICES, CORE | [address] | | | + + + + + INR (03/01/2019 2:41 PM PDT) + +-------+ + + + | Component | Value | Ref Range | Performed | Pathologist | | | | | At | Signature | + +-------+ + + + | INR | 1.05 | 0.90 - 1.20 INR | [facility] | [facility] | [address] | [place] [address] | | | SERVICES, CORE | PARK [...] | + + + + + | [facility] | [address] | [place] [address] | | | SERVICES, SPECIAL | PARK [...] + | [facility] | [address] | [place] [address] | | | LYDIA RANGEL | CLARENCE [...] | | | | | determined by [employer] | | | | | | Laboratories. See | | | | | | Compliance Statement B: | | | | | | [facility].SaySwap/CSPerformed | | | | | | by [facility],[address] | | | | | | Natalia Parson [facility],[place] | | | | | | [address] | | | | | | [phone].Advanced ICU [facility]. | | | | | | com, [...] [facility] | [address] | [place], [place] | | | UNIV PTH - INTFC | | [address] | | + + + + + [...] | | | LABORATORY | | | [place] | | | SERVICES, | | | [...] MDRD equation recommended by the National | [facility] | | Kidney Disease Education Program. Estimated [...] [facility] | [address] | [place] [address] | | | SERVICES, CORE | PARK [...]
--- OUTSIDE RECORDS SUMMARY | ~2019-12-02 | XMS | Encounter Summary ---
Demographics + + + | Address | [address] | | | [place] [address] | + + + | Home Phone [...] + | Organization | [facility] [...] + +------+ + | Care Roll Scale Worker Name | Role | Phone | + +------+ + PCP | Unavailable | + +------+ + Encounter Details +--------+ + + + + | Date | Type | Department | Care Team | Description | +--------+ + + + + | 10/14/ | Orders Only | [facility] | Conversion | | | 2017 | | NEPRHOLOGY [place] | Transaction, | | | | | [address] | Provider Unknown | | | | | [address] [place], [place] | [phone] | | | | | [address] | (Fax) | | | | | [phone] | | | +--------+ + + + [...] RICHEY | | | | | | [place] [address] | | | | | | [phone] | | | | | | | [...]
--- OUTSIDE RECORDS SUMMARY | ~2019-12-02 | XMS | Encounter Summary ---
Demographics + + + | Address | [address] | | | [place] [address] | + + + | Home Phone [...] [place], [place] | | | | | [address] | | + + + + + | Ellie Vang | ECON | Unknown | | + + + + + Care Team Providers + +------+ + | Care Shipping Assistant Name | Role | Phone | [...] Dx) | | | | Surgery at [facility] [address] | [place], [place] | | | | | [address] | [address] | | | | | Mailcode: [facility] | [phone] | | | | | [facility] | | | | | | and Healing, | | | | | | Building 1, | | | | | | Floor [place], [place] | | | | | | [address] | | | | | | [phone] | | | +--------+---------+ + + + [...] nilesh limb 150 cm or less 8 [facility] Cholecystectomy, laparoscopic Allergies Allergen [...] 50 mg by mouth once daily. CALCIUM CRB&PPS-Z7-LNN56-GENIS ORAL Take 2 tablets by mouth two [...] [address] | | | | | | [place], [place] | | | | | | [address] | | | | | | [phone] | | | | | | | | +--------+---------+ + + + documented as of this encounter Visit Diagnoses + + | Diagnosis | + + | Excess skin of abdomen - Primary Unspecified hypertrophic and atrophic condition of | | skin | + + documented in this encounter
--- OUTSIDE RECORDS SUMMARY | ~2019-12-02 | XMS | Encounter Summary ---
Demographics + + + | Address | [address] | | | [place] [address] | + + + | Home Phone [...] [place], [place] | | | | | [address] | | + + + + + [...] Randell | | | | | | [address] [address] | [address] | | [address], | Ave | | | | | | [address] | [place], [place] | | | | | | [place], [place] | [address] | | | | | | [address] | Phone: | | | | | | Phone: | [phone] | | | | | | [phone] | Fax: | | | | | | Fax: | [phone] | | | | | | [phone] | | +--------+--------+ + + + + Encounter Details +--------+---------+ + + + | Date | Type | Department | Care Team | Description | +--------+---------+ + + + | 08/29/ | Office | Cardiology | Randell Franks, | HTN (hypertension) | | 2013 | Visit | Preventive at 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
--- OUTSIDE RECORDS SUMMARY | ~2019-12-02 | XMS | Encounter Summary ---
Demographics + + + | Address | [address] | | | [place] [address] | + + + | Home Phone [...] [place], [place] | | | | | [address] | | + + + + + | Ellie Vang | ECON | Unknown | | + + + + + Care Team Providers + +------+ + | Care Gut Dropper Name | Role | Phone | + [...] [place] | | | | | | [address] | | | | | | [phone] | | | | | | | | +--------+---------+ + + + documented as of this encounter Visit Diagnoses Not on filedocumented in this encounter"
--- OUTSIDE RECORDS SUMMARY | ~2019-12-02 | XMS | Encounter Summary ---
Demographics + + + | Address | [address] | | | [place] [address] | + + + | Home Phone [...] [place], [place] | | | | | [address] | | + + + + + | Ellie Vang | ECON | Unknown | | + + + + + Care Team Providers + +------+ + | Care Chute Feeder Name | Role | Phone | [...] | 2016 | on | Center at [place] [address] | | | | | | [address] | | | | | | Mailcode: [facility] | | | | | | for Health and | | | | | | [facility] 2 | | | | | | [place], [place] | | | | | | [address] | | | | | | [phone] | | | +--------+ + + + [...] [address] | | | | | | [place], [place] | | | | | | [address] | | | | | | [phone] | | | | | | | | +--------+---------+ + + + documented as of this encounter Visit Diagnoses Not on filedocumented in this encounter"
--- OUTSIDE RECORDS SUMMARY | ~2019-12-02 | XMS | Encounter Summary ---
[...] [place], [place] | | | | | [address] | | + + + + + | Ellie Vang | ECON | Unknown | | + + + + + Care Team Providers + +------+ + | Care Mystery Shopper Name | Role | Phone | + +------+ + | Kenyatta Cardenas MD | PCP | | + +------+ + Encounter Details +--------+ + + + + | Date | Type | Department | Care Team | Description | +--------+ + + + + | 03/18/ | Transcribe | [facility] | Transcribe | | | 2019 | Orders | [facility] [address] | Encounter, Provider, | | | | | [address] Mailcode: | [address] | | | | | [facility] | [place] [address] | | | | | Health and Healing, | | | | | | Building [address] | | | | | | [place], [place] | | | | | | [address] | | | | | | [phone] | | | +--------+ + + + [...] [address] | | | | | | [place], [place] | | | | | | [address] | | | | | | [phone] | | | | | | | | +--------+---------+ + + + documented as of this encounter Results EGD (04/07/2019 10:53 AM PDT) + + | Specimen | + + | | + + + + + | Narrative | Performed At | + + + | MRN: | [facility] | | [id number] Date: 04/07/2019Patient Name: Elzbieta Curtis #: | ENDOSCOPY | | [id number] of : 1975CSN: [id number] Type: | | | AmbulatoryRoom: Endo 5Procedure: Upper GI | | | endoscopyIndications: Generalized abdominal pain, Nausea | | | with vomitingProviders: TAL LUND MD | | | (Doctor), BERNARDO BERNARD RN (Nurse), | | | [address] (Vice President Of Communications)Referring MD: SYLVIA Kilpatrick | | | RASTA [...] | | | The Olympus GIF-H190 Endoscope #[id number] | | | was introduced through the [...] | City/State/[facility] | Phone Number | | Organization | [...]
--- OUTSIDE RECORDS SUMMARY | ~2019-12-02 | XMS | Encounter Summary ---
Demographics + + + | Address | [address] | | | [place] [address] | + + + | Home Phone [...] [place], [place] | | | | | [address] | | + + + + + | Ellie Vang | ECON | Unknown | | + + + + + Care Team Providers + +------+ + | Care Structural Steel Ironworker Name | Role | Phone | + [...] Encounter | Procedural Unit | MD Barb [address] | | | | | ([facility] at [facility] [address] [place], [place] | | | | | [address] | [address] | | | | | Mailcode: [place] | [phone] | | | | | for Health and | | | | | | Healing, Building [address] | | | | | | [place], [place] | | | | | | [address] | | | | | | [phone] | | | +--------+ + + + [...] hours or on weekends and holiday [facility] toll free [phone] and have the GI doctor seasonal driver paged. The provider who performed your procedure: [...] | | 0 | | | | CRB&CBF-A6-PNU73-GEN | mouth two times | | | [...] from the original. PRE PROCEDURE NOTE: MR# [id number] Subjective: Elzbieta Cristina is a 44 y.o. [...] [address] | | | | | | [place], [place] | | | | | | [address] | | | | | | [phone] | | | | | | | [...] + | MRN: | [facility] | | [id number] Date: 04/07/2019Patient Name: Elzbieta Curtis #: | ENDOSCOPY | | [id number] of : 1975CSN: [id number] Type: | | | AmbulatoryRoom: Endo 5Procedure: Upper GI | | | endoscopyIndications: Generalized abdominal pain, Nausea | | | with vomitingProviders: TAL LUND MD | | | (Doctor), KEERTHI BERNARD RN (Nurse), | | | [facility] (Fiber Optics Technician)Referring MD: SYLVIA Kilpatrick | | | Mela [...] | | | The Olympus GIF-H190 Endoscope #[id number] | | | was introduced through the [...] | | | | ONCE, 1 dose, [facility] 04/07/19 at 1300 | | | [...] 11:18 | | | | | Starting [facility] 04/07/19 at 1118, | | AM PDT | | | | | Until [facility] 04/07/19 at 1118 | | | | | | + +-------+ +--------+---+---+ +---+---+ | | | +---+---+ + +-------+ +-------+---+---+ | lidocaine viscous (XYLOCAINE | Given | 04/07/20 | 15 mL | | | | VISCOUS) 2 % mucosal solution | | 19 12:35 | | | | | Mouth/Throat, INTRAPROCEDURE PRN, | | PM PDT | | | | | Starting [facility] 04/07/19 at 1104, | | | | | | | Until [facility] 04/07/19 at 1235 | | | [...]
--- OUTSIDE RECORDS SUMMARY | ~2019-12-02 | XMS | Encounter Summary ---
Demographics + + + | Address | [address] | | | [place] [address] | + + + | Home Phone [...] Team Providers + +------+ + | Care Shipyard Painter Name | Role | Phone | [...] | | | | | [facility] | | | | | | [place], [place] | | | | | | [address] | | | | | | [phone] | | | +--------+ + + + [...] | | | | | | [place], [place] | | | | | | [address] | | | | | | [phone] | | | | | | | [...] | | | | | | | [facility] | | | | | [...] in | | | | | | [place]. | | | | | | | | | | | | Julia Blackman at [facility]. | | | | | | [...] | | | | artery. A 4.1 Greek | | | | | | catheter [...] | + +---------+ + + | [facility] DEPARTMENT OF | | | | | RADIOLOGY | | | | + +---------+ + + documented in this encounter Visit Diagnoses Not on filedocumented in this encounter
--- OUTSIDE RECORDS SUMMARY | ~2019-12-02 | XMS | Encounter Summary ---
Demographics + + + | Address | [address] | | | [place] [address] | + + + | Home Phone [...] [place], [place] | | | | | [address] | | + + + + + | Ellie Vang | ECON | Unknown | | + + + + + Care Team Providers + +------+ + | Care Commissioning Specialist Name | Role | Phone | + +------+ + | Fadi Goodrich DO | PCP | | + +------+ + Encounter Details +--------+------+ + + + | Date | Type | Department | Care Team | Description | +--------+------+ + + + | 06/16/ | Lab | Laboratory at [facility] | | Morbid obesity with | | 2012 | | [address] | | BMI of 70 and over, | | | | [place], [place] | | adult (HCC); Vitamin | | | | [address] | | D deficiency | | | | [phone] | | disease; | | | | [...] [address]annery | | | | | | [place], [place] | | | | | | [address] | | | | | | [phone] | | | | | | | [...] | | | | | | obesity ([facility]) PCOS | | | | [...] at | | | | | | [employer].MaxLinear Test | | | | | | developed and | | | | | | characteristics | | | | | | determined by | | | | | | [employer]. See | | | | | | Compliance Statement B: | | | | | | [employer].MaxLinear/CSPerformed | | | | | | by [employer] [facility],[address] | | | | | | [facility] [place], [facility],[place] | | | | | | [address] | | | | | | [phone].[employer]. | | | | | | com, [...] B: | | | | | | [employer].MaxLinear/CS | | | | + + + + + + + + | Specimen | + + | Blood - Blood | + + + + + + + | Performing | Address | City/State/Zipcode | Phone Number | | Organization | | | | + + + + + | [facility] | [address] | [place], [place] | | | UN[address] P[address] - INTFC | | [address] | | + + + + + [...]
--- OUTSIDE RECORDS SUMMARY | ~2019-12-02 | XMS | Encounter Summary ---
Demographics + + + | Address | [address] | | | [place] [address] | + + + | Home Phone [...] [place], [place] | | | | | [address] | | + + + + + | Ellie Vang | ECON | Unknown | | + + + + + Care Team Providers + +------+ + | Care Motorcycle Mechanic Name | Role | Phone | [...] at [facility] [address] | MD [address] | | | | | [address] | [facility] | | | | | Mailcode: Center | [place], [place] | | | | | for Health and | [address] | | | | | [facility] 2 | [phone] | | | | | [place], [place] | | | | | | [address] | | | | | | [phone] | | | +--------+ + + + [...] [place] | | | | | | [address] | | | | | | [phone] | | | | | | | | +--------+---------+ + + + documented as of this encounter Visit Diagnoses Not on filedocumented in this encounter"
--- OUTSIDE RECORDS SUMMARY | ~2019-12-02 | XMS | Encounter Summary ---
Demographics + + + | Address | [address] | | | [place] [address] | + + + | Home Phone [...] + | Author | [facility] | | | and Jeffana | + + + | Organization | [facility] | | | and Jeffana [...] Providers + +------+ + | Care Manager Wholesale Name | Role | Phone | + [...] Closed | | Radiology | Diagnoses | [place], | [facility] | | | | | Deep vein | Dharmesh | Intra Op [address] | | | | | thrombosis | MD Natan | [address] | | | | | (DVT) of | [address] | [place], [place] | | | | | left lower | [address] | [address] | | | | | extremity, | Roshan E | Phone: | | | | | unspecified | [place], [place] | [phone] | | | | | chronicity, | [address] | Fax: | | | | | unspecified | Phone: | [phone] | | | | | vein (HCC) | [phone] | | | | | | Procedures | Fax: | | | | | | IR Removal | [phone] | | | | | | Fibrin [...] + + | 06/14/ | Telephone | [facility] | Dharmesh Fierro, | Procedure | | 2019 | | INTERVENTIONAL | RN | | | | | RADIOLOGY [address] | | | | | | [address] | | | | | | [place], [place] | | | | | | [address] | | | | | | [phone] | | | +--------+ + + + [...] | | | | | [place] [address] | | | | | | [phone] | | | | | | | [...]
--- OUTSIDE RECORDS SUMMARY | ~2019-12-02 | XMS | Encounter Summary ---
Demographics + + + | Address | [address] | | | [place] [address] | + + + | Home Phone [...] [place], [place] | | | | | [address] | | + + + + + | Ellie Vang | ECON | Unknown | | + + + + + Care Team Providers + +------+ + | Care Vertical Punch Operator Name | Role | Phone | [...] site of | Patient NO | Ryan Grcae | | | | | abdominal | REFERRING | Brock Molina | | | | | cavity | PROVIDER PER | [place] | | | | | without | PT | [address] | | | | | mention of | | Phone: | | | | | obstruction | | [phone] | | | | | or gangrene | | Fax: | | | | | | | [phone] | +--------+--------+ + + + + Encounter [...] | | | | [address] | [place], [place] | | | | | Physicians [place], | [address] | | | | | 2nd Floor | [phone] | | | | | [place], [place] | | | | | | [address] | | | | | | [phone] | | | +--------+---------+ + + + [...] fine, afebrile. Abdominal exam is completely benign. [place] are still in, And wound is healed. [place] removed. Drainage is serous, very slight sanguinous. No eviden ce of deep subcutaneous infection. Abdominal wall currently intact. Drain site OK. Assessment/Plan: Satisfactory course following primary repair of incarcerated umbilical he rnia. Pt. Wants to obtain care, including drain removal and diabetic care in [place], so I have referred her to her [...] Flannery | | | | | | [facility] [place] | | | | | | [address] | | | | | | [phone] | | | | | | | [...]
--- OUTSIDE RECORDS SUMMARY | ~2019-12-02 | XMS | Encounter Summary ---
Demographics + + + | Address | [address] | | | [place] [address] | + + + | Home Phone [...] [place], [place] | | | | | [address] | | + + + + + | Ellie Vang | ECON | Unknown | | + + + + + Care Team Providers + +------+ + | Care Neon Sign Mechanic Name | Role | Phone | [...] | | 2019 | | Preventive at [facility] | MD [address] | stop any | | | | [address] | [place], [place] | medications? ) | | | | Mailcode: Mihaela | [address] | | | | | [facility] | [phone] | | | | | and Healing, | | | | | | [address] | | | | | | [place], [place] | | | | | | [address] | | | | | | [phone] | | | +--------+ + + + [...] Flannery | | | | | | [place], [place] | | | | | | [address] | | | | | | [phone] | | | | | | | | +--------+---------+ + + + documented as of this encounter Visit Diagnoses Not on filedocumented in this encounter"
--- OUTSIDE RECORDS SUMMARY | ~2019-12-02 | XMS | Encounter Summary ---
Demographics + + + | Address | [address] | | | [place] [address] | + + + | Home Phone [...] [place], [place] | | | | | [address] | | + + + + + | Ellie Vang | ECON | Unknown | | + + + + + Care Team Providers + +------+ + | Care Spray Machine Loader Name | Role | Phone | [...] | Preventive at [facility] | [address] | Request (Ericxiga 5 | | | | [address] | [facility] [place] | mg) | | | | Mailcode: [facility] | [address] | | | | | [facility] | [phone] | | | | | and [address] | | | | | | [address] | | | | | | [place], [place] | | | | | | [address] | | | | | | [phone] | | | +--------+ + + + [...] Ave | | | | | | [place], [place] | | | | | | [address] | | | | | | [phone] | | | | | | | | +--------+---------+ + + + documented as of this encounter Visit Diagnoses Not on filedocumented in this encounter"
--- OUTSIDE RECORDS SUMMARY | ~2019-12-02 | XMS | Encounter Summary ---
Demographics + + + | Address | [address] | | | [place] [address] | + + + | Home Phone [...] [place], [place] | | | | | [address] | | + + + + + | Ellie Vang | ECON | Unknown | | + + + + + Care Team Providers + +------+ + | Care Management Psychologist Name | Role | Phone | + +------+ + | Fadi Goodrich DO | PCP | | + +------+ + Encounter Details +--------+---------+ + + + | Date | Type | Department | Care Team | Description | +--------+---------+ + + + | 01/11/ | Office | Digestive Health | | Morbid obesity (HCC) | | 2018 | Visit | Center at [facility] [address] | | (Primary Dx) | | | | [address] | | | | | | Mailcode: [place] | | | | | | [facility] and | | | | | | [facility] 2 | | | | | | [place], [place] | | | | | | [address] | | | | | | [phone] | | | +--------+---------+ + + + [...] of Class: 1055 until 1155 (60 minutes [id number] with patient) Teaching Methods: PowerPoint and verbal [...] a journal with fluid/protein d. Transportation 7. [facility] 8. Surgical [...] Flannery | | | | | | [place], [place] | | | | | | [address] | | | | | | [phone] | | | | | | | | +--------+---------+ + + + documented as of this encounter Visit Diagnoses + + | Diagnosis | + + | Morbid obesity (HCC) - Primary Morbid obesity | + + documented in this encounter"
--- OUTSIDE RECORDS SUMMARY | ~2019-12-02 | XMS | Encounter Summary ---
Demographics + + + | Address | [address] | | | [place] [address] | + + + | Home Phone [...] | Author | [facility] | | | and Jeffana | + + + | Organization | [facility] [...] Providers + +------+ + | Care Molecular Geneticist Name | Role | Phone | [...] [place] | | | | | | [address] | | | | | | [phone] | | | +--------+ + + + [...] | | | | | [place] [address] | | | | | | [phone] | | | | | | | | +--------+---------+ + + + documented as of this encounter Visit Diagnoses + + | Diagnosis | + + | Absence of menstruation | + + documented in this encounter"
--- OUTSIDE RECORDS SUMMARY | ~2019-12-02 | XMS | Encounter Summary ---
Demographics + + + | Address | [address] | | | [place] [address] | + + + | Home Phone [...] [place], [place] | | | | | [address] | | + + + + + | Ellie Vang | ECON | Unknown | | + + + + + Care Team Providers + +------+ + | Care Combat Systems Officer Name | Role | Phone | [...] | Center at [facility] [address] | ACNP [address] | | | | | [address] | [address] [place], [place] | | | | | Mailcode: [place] | [address] | | | | | for Health and | | | | | | [facility] 2 | | | | | | [facility] [place] | | | | | | [address] | | | | | | | [...] Flannery | | | | | | [place], [place] | | | | | | [address] | | | | | | [phone] | | | | | | | | +--------+---------+ + + + documented as of this encounter Visit Diagnoses Not on filedocumented in this encounter"
--- OUTSIDE RECORDS SUMMARY | ~2019-12-02 | XMS | Encounter Summary ---
Demographics + + + | Address | [address] | | | [place] [address] | + + + | Home Phone [...] [place], [place] | | | | | [address] | | + + + + + | Ellie Vang | ECON | Unknown | | + + + + + Care Team Providers + +------+ + | Care Ore Roaster Name | Role | Phone | [...] | | 2020 | | Center at [facility] [address] | MD J[address] | | | | | Jacy Flannery | [address] | | | | | Mailcode: Center | [place], [place] | | | | | [facility] and | [address] | | | | | [facility] 2 | [phone] | | | | | [place], [place] | | | | | | [address] | | | | | | [phone] | | | +--------+ + + + [...] 2020 | Visit | | [address] | | | | | | [place] | | | | | | [address] | | | | | | [phone] | | | | | | | | +--------+---------+ + + + documented as of this encounter Visit Diagnoses Not on filedocumented in this encounter"
--- OUTSIDE RECORDS SUMMARY | ~2019-12-02 | XMS | Encounter Summary ---
Demographics + + + | Address | [address] | | | [place] [address] | + + + | Home Phone [...] [place], [place] | | | | | [address] | | + + + + + | Ellie Vang | ECON | Unknown | | + + + + + Care Team Providers + +------+ + | Care Ticket Clerk Name | Role | Phone | [...] 2015 | | Preventive at [facility] | MD [address] | (phentermine 37.5 mg | | | | [address] | [place], [place] | ) | | | | Mailcode: [facility] | [address] | | | | | [facility] | [phone] | | | | | and [address], | | | | | | [address] | | | | | | [place], [place] | | | | | | [address] | | | | | | [phone] | | | +--------+--------+ + + + [...] Flannery | | | | | | [place], [place] | | | | | | [address] | | | | | | [phone] | | | | | | | | +--------+---------+ + + + documented as of this encounter Visit Diagnoses Not on filedocumented in this encounter"
--- OUTSIDE RECORDS SUMMARY | ~2019-12-02 | XMS | Encounter Summary ---
Demographics + + + | Address | [address] | | | [place] [address] | + + + | Home Phone [...] [place], [place] | | | | | [address] | | + + + + + | Ellie Vang | ECON | Unknown | | + + + + + Care Team Providers + +------+ + | Care Switch Repairer Name | Role | Phone | [...] | | 2019 | | Center at [facility] [address] | MD [address] | | | | | Jacy Flannery | [address] | | | | | Mailcode: Center | [place], [place] | | | | | [facility] and | [address] | | | | | [facility] 2 | [phone] | | | | | [place], [place] | | | | | | [address] | | | | | | [phone] | | | +--------+ + + + [...] Flannery | | | | | | [place] | | | | | | [address] | | | | | | [phone] | | | | | | | | +--------+---------+ + + + documented as of this encounter Visit Diagnoses Not on filedocumented in this encounter"
--- OUTSIDE RECORDS SUMMARY | ~2019-12-02 | XMS | Encounter Summary ---
Demographics + + + | Address | [address] | | | [place] [address] | + + + | Home Phone [...] [place], [place] | | | | | [address] | | + + + + + | Ellie Vang | ECON | Unknown | | + + + + + Care Team Providers + +------+ + | Care Engraver Automatic Name | Role | Phone | + [...] | | | | | | [address] [place], [place] | | | | | | [address] | | | | | | [phone] | | | +--------+ + + + [...] Flannery | | | | | | [place], [place] | | | | | | [address] | | | | | | [phone] | | | | | | | | +--------+---------+ + + + documented as of this encounter Visit Diagnoses Not on filedocumented in this encounter"
--- OUTSIDE RECORDS SUMMARY | ~2019-12-02 | XMS | Encounter Summary ---
Demographics + + + | Address | [address] | | | [place] [address] | + + + | Home Phone [...] [place], [place] | | | | | [address] | | + + + + + | Ellie Vang | ECON | Unknown | | + + + + + Care Team Providers + +------+ + | Care Lithographers Printer Name | Role | Phone | [...] Rd | | | 11/12/ | | [address] | [place], [place] | | | 2012 | | [phone] | [address] | | | | | | [phone] | | | | | | | [...] yuriy tral hernia. She was transferred from [place] for surgical evaluation of possible incarcer ated [...] yuriy tral hernia. She was transferred from [place] for surgical evaluation of possible incarcer ated [...] keeping you from eating and drinking, Call [phone]. It is important to stay hydrated! If [...] taking narcotic that contain Tylenol (acetaminophen) Example: Blum, Lortab, Vicodin, hydrocodone/APAP, Percocet, Tylenol #3 PAIN MEDICATIONS are ONLY REFILLED during CLINIC APPOINTMENTS. Please call [phone] to schedule an appointment. Your Follow-Up Plan Follow up with ROBIN MEJIA in 2 weeks. Contact information: [address] [facility] [address] Vitals on discharge: Ht 154.9 cm (5' [...] might be different f rom the original. [facility] DEPARTMENT OF SURGERY EMERGENCY GENERAL SURGERY [...] clinic - [place]. [place] [address] [facility] [address] [facility] [address] Aminta Goodwin Md - 11/11/2012 7:40 AM PDT [facility] DEPARTMENT OF SURGERY EMERGENCY GENERAL SURGERY Division of Trauma and Critical Care Attending Physician: Andie Brian MD Progress Note Note Date: 11/11/2012 Admission Date: 11/06/2012 DYLAN ROMERO, [id number] Hospital Day #5 INTERVAL EVENTS none acute [...] mg, Rectal, DAILY PRN, Aminta Wilson MD byjnllrlcr-vtkxprdwmynlc-zyjyvgqs (aka FIORICET) 50-325-40 mg 1 Tab, 1 [...] Jayne Ponce MD, 1 mg at 11/10/12801 bvvctcqlpk-thwtmitipbbjm-dyqlqatw (aka FIORICET) 50-325-40 mg 1 Tab, 1 [...] in preservative free NaCl 0.9% 50 mL HOT TAMALE MAN infusion, , Intravenous, KIESHA NUGRANT, Aracely Mccartynato, [...] diet -add bowel regimen Acute pain -HM HOT TAMALE MAN, tylenol -convert to oral pain medication once [...] Fluids: LR 125ml/hr Feeding: NPO Analgesia: Dilaudid HOT TAMALE MAN Sedation: not indicated Thromboprophylaxis: enoxaparin Head of [...] Ponce MD, 1 mg at 11/09/12 0855 dnehoaydea-ljrptcujzlqli-qyabrjqo (aka FIORICET) 50-325-40 mg 1 Tab, 1 [...] in preservative free NaCl 0.9% 50 mL HOT TAMALE MAN infusion, , Intravenous, KIESHA NUOUS, Aracely Cruzo, [...] drainage <30ml for 24hrs Acute pain -HM HOT TAMALE MAN, tylenol Diabetes: -insulin gtt not started due [...] Fluids: LR 125ml/hr Feeding: NPO Analgesia: Dilaudid HOT TAMALE MAN Sedation: not indicated Thromboprophylaxis: enoxaparin Head of bed: > 30 Ulcer prophylaxis: pepcid Glycemic control: adequate Activity/PT/OT: Ongoing Yogurt: ABX on Probiotics:yes AMINTA WILSON MD General Surgery, R1 Kaleb Martin N P - 11/08/2012 8:49 AM PDT [facility] DEPARTMENT OF SURGERY EMERGENCY GENERAL SURGERY Division of Trauma and Critical Care Attending Physician: Andie Brian MD Progress Note Note Date: 11/08/2012 Admission Date: 11/06/2012 DYLAN ROMERO, [id number] Hospital Day #2 INTERVAL EVENTS NO SUBJECTIVE Pain well controlled; has headache attributed to dilaudid HOT TAMALE MAN Tylenol did not help. Flatus: YES Tolerating [...] trials today. -DC ruiz Acute pain -HM HOT TAMALE MAN, tylenol Diabetes: -insulin gtt not started due [...] Fluids: LR 125ml/hr Feeding: NPO Analgesia: Dilaudid HOT TAMALE MAN Sedation: not indicated Thromboprophylaxis: enoxaparin Head of bed: > 30 Ulcer prophylaxis: pepcid Glycemic control: adequate Activity/PT/OT: Ongoing Yogurt: ABX on Probiotics: No KALEB WALKER NP [facility] [address] [place] [address] elvin Stephens MD - 11/07/2012 9:51 PM [...] 7.33* PCO2 49* PO2 113* HCO3 25 TDJMR0JZK 26 P1KMQDVE 98.3* L3IEYMDVW -- FIO2 60 ABGEXCESS -0.9 Assessment, Medical Decision Making and Plan 1. Incarcerated hernia, now s/p repair and panniculectomy -Binder, pain control, minimize nausea and coughing PRN. -NG clamping trials today. 2. Acute pain -HM HOT TAMALE MAN, tylenol 3. Diabetes: -insulin gtt 4. Morbid [...] Dione Grimes MD R-2, General Surgery Pager: [phone] [facility] [place] Department of Surgery Trauma ICU Team Pager (24hrs/day): [phone] I was present with the resident during the history and exam. I discussed the case with the resident and agree with the findings and plan as documented in the resident s note. KELVIN STEPHENS MD [facility] [address] [place] [address] [id number] uOnur patton MD - 11/07/2012 2:37 AM [...] in preservative free NaCl 0.9% 50 mL HOT TAMALE MAN infusion Intravenous CON TINUOUS Aracely Flores, DO [...] POD#1 s/p primary repair. 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 [address] [id number] [place] [address] Onelia Shrestha MD - 11/06/2012 8:41 AM PDT [facility] DEPARTMENT OF SURGERY Division of Trauma and Critical Care Emergency General Surgery / Acute Care Surgery Attending Physician: Andie Brian MD Note Date: 11/06/2012 Admission Date: 11/06/2012 DYLAN ROMERO, [id number] Hospital Day #0 OVERNIGHT EVENTS: anxious SUBJECTIVE: [...] zenia LABS: reviewed and are available in [employer] (if new data) IMAGING: VASCULAR: IMPRESSION: Dylan [...] Flannery | | | | | | [place], [place] | | | | | | [address] | | | | | | [phone] | | | | | | | [...] Mae | | | | | | [place] | | | | + + + [...] MARQUAM | [address] | [place], [place] | | | JUSTINE DAWN OF CARE | [address] | [address] | | | TESTS | | | [...] AMES | [address] | [place], [place] | | | [place] POINT OF CARE | [address] | [address] | | | TESTS | | | [...] | + + + + + | [employer] [facility] | [address] | [place] [address] | | | SERVICES, CORE | CLARENCE [...] equation recommended by the | [facility] | | National Kidney Disease [...] [facility] | [address] | [place] [address] | | | SERVICES, CORE | PARK [...] CENTER LABORATORY | [address] | [place] [address] | | | SERVICES, CORE | CLARENCE [...] 60 - 99 mg/dL | [facility], [...] | NKECHI AMES | [address] | [place], [place] | | | [place] POINT OF CARE | [address] | [address] | | | TESTS | | | [...] MARQUAM | [address] | [place], [place] | | | [place] POINT OF CARE | [address] | [address] | | | TESTS | | | [...] - MARQUAM | [address] | [place], [place] | | | [place] POINT OF CARE | [address] | [address] | | | TESTS | | | [...] + + + | NKECHI AMES | [address] | [place], [place] | | | [place] POINT OF CARE | [address] | [address] | | | TESTS | | | [...] MARQUAM | [address] | [place], [place] | | | [place] POINT OF CARE | [address] | [address] | | | TESTS | | | [...] [facility] | [address] | [place] [address] | | | SERVICES, CORE | PARK [...] [facility] | [address] [facility] | [place] [address] | | | SERVICES, CORE | [address] | | | + + + + + MAGNESIUM, PLASMA (11/11/2012 3:38 AM PDT) + +---------+ + + + | Component | Value | Ref Range | Performed | Pathologist | | | | | At | Signature | + +---------+ + + + | MAGNESIUM,P | 1.5 (L) | 1.8 - 2.5 mg/dL | [facility] | | | LASMA | [...] [facility] | [address] [facility] [address] [facility] | [place] [address] | | | SERVICES, CORE | PARK [...] KWAKU | [address] | [place], [place] | | | JUSTINE DAWN OF JAKY | [facility] | [address] | | | TESTS | | | [...] 60 - 99 mg/dL | [facility], [...] KWAKU | [address] | [place], [place] | | | [place] POINT OF CARE | [address] | [address] | | | TESTS | | | [...] AMES | [address] | [place], [place] | | | JUSTINE DAWN OF CARE | [facility] | [address] | | | TESTS | | | [...] YAKOVAM | [address] | [place], [place] | | | JUSTINE DAWN OF CARE | [facility] | [address] | | | TESTS | | | [...] 60 - 99 mg/dL | [facility], [...] KWAKU | [address] | [place], [place] | | | JUSTINE DAWN OF [facility] | [address] | [address] | | | TESTS | | | [...] [facility] | [address] | [place] [address] | | | SERVICES, CORE | PARK [...] [facility] | [address] | [place] [address] | | | LYDIA RANGEL | CLARENCE [...] CENTER LABORATORY | [address] | [place] [address] | | | SERVICES, CORE | CLARENCE [...] 92 | 60 - 99 mg/dL | [facility], [...] AMES | [address] | [place], [place] | | | JUSTINE DAWN OF CARE | [address] | [address] | | | TESTS | | | [...] YAKOVAM | [address] | [place], [place] | | | JUSTINE DAWN OF CARE | [address] | [address] | | | TESTS | | | [...] AMES | [address] | [place], [place] | | | JUSTINE DAWN OF CARE | [facility] | [address] | | | TESTS | | | [...] | | | Final CULTURE | | [place] | | | | RESULT:>100,000 cfu/ml | [...] + | [facility] | [address] | [place] [address] | | | [facility] | | | | + + [...] [facility] | [address] | [place] [address] | | | SERVICES, CORE | PARK [...] [facility] | [address] | [place] [address] | | | SERVICES, CORE | PARK [...] KWAKU | [address] | [place], [place] | | | L[place]PEZ POINT OF CARE | [address] | [address] | | | TESTS | | | [...] [facility] | [address] | [place] [address] | | | SERVICES, CORE | PARK [...] [facility] | [address] | [place] [address] | | | SERVICES, CORE | CLARENCE [...] [facility] | [address] | [place] [address] | | | LYDIA RANGEL | CLARENCE [...] MARPATAM | [address] | [place], [place] | | | L[place]Z POINT OF CARE | [address] | [address] | | | TESTS | | | [...] AMES | [address] | [place], [place] | | | JUSTINE DAWN OF CARE | [facility] | [address] | | | TESTS | | | [...] KWAKU | [address] | [place], [place] | | | JUSTINE DAWN OF JAKY | [address] | [address] | | | TESTS | | | [...] [facility] | [address] | [place] [address] | | | SERVICES, CORE | PARK [...] [facility] | [address] | [place] [address] | | | SERVICES, CORE | PARK [...] [facility] [employer] | [address] [facility] | [place] [address] | | | SERVICES, CORE | PARK [...] MARQUAM | [address] | [place], [place] | | | JUSTINE DAWN OF JAKY | [address] | [address] | | | TESTS | | | [...] - MARQUAM | [address] | [place], [place] | | | L[place]PEZ POINT OF CARE | [address] | [address] | | | TESTS | | | [...] + + + | NKECHI AMES | [address] | [place], [place] | | | L[place]Z POINT OF CARE | [address] | [address] | | | TESTS | | | [...] [facility] | [address] | [place] [address] | | | SERVICES, CORE | CLARENCE [...] CENTER LABORATORY | [address] | [place] [address] | | | CLAIRE, LYDIA | CLARENCE [...] | + + + + + | [employer] | [address] | [place] [address] | | | SERVICES, CORE | CLARENCE [...] [facility] | [address] [facility] | [place] [address] | | | SERVICES, CORE | CLARENCE [...] [facility] | [address] | [place] [address] | | | SERVICES, CORE | PARK [...] CENTER LABORATORY | [address] | [place] [address] | | | SERVICES, CORE | CLARENCE [...] 60 - 99 mg/dL | [facility], [...] AMES | [address] | [place], [place] | | | JUSTINE DAWN OF CARE | [address] | [address] | | | TESTS | | | [...] AMES | [address] | [place], [place] | | | JUSTINE DAWN OF CARE | [address] | [address] | | | TESTS | | | [...] MARQUAM | [address] | [place], [place] | | | L[place]PEZ POINT OF CARE | [address] | [address] | | | TESTS | | | [...] KWAKU | [address] | [place], [place] | | | JUSTINE DAWN OF CARE | [address] | [address] | | | TESTS | | | [...] AMES | [address] | [place], [place] | | | JUSTINE DAWN OF CARE | [facility] | [address] | | | TESTS | | | [...] KWAKU | [address] | [place], [place] | | | JUSITNE DAWN OF JAKY | [address] | [address] | | | TESTS | | | [...] KWAKU | [address] | [place], [place] | | | JUSTINE DAWN OF CARE | [facility] | [address] | | | TESTS | | | [...] AMES | [address] | [place], [place] | | | L[place]PEZ POINT OF CARE | [address] | [address] | | | TESTS | | | [...] KWAKU | [address] | [place], [place] | | | JUSTINE DAWN OF JAKY | [address] | [address] | | | TESTS | | | [...] MARQUAM | [address] | [place], [place] | | | JUSTINE DAWN OF CARE | [address] | [address] | | | TESTS | | | [...] AMES | [address] | [place], [place] | | | L[place]PEZ POINT OF CARE | [address] | [address] | | | TESTS | | | [...] [facility] | [address] | [place] [address] | | | CLAIRE, | [address] [...] 60 - 99 mg/dL | [facility], [...] KWAKU | [address] | [place], [place] | | | L[place]PEZ POINT OF CARE | [address] | [address] | | | TESTS | | | [...] [facility] | [address] | [place] [address] | | | SERVICES, | [address] [...] [facility] | [address] | [place] [address] | | | SERVICES, | [address] [...] [facility] | [address] | [place] [address] | | | SERVICES, CORE | CLARENCE [...] [facility] | [address] | [place] [address] | | | SERVICES, CORE | CLARENCE [...] [facility] | [address] | [place] [address] | | | SERVICES, CORE | [address] | | | + + + + + INR (11/06/2012 6:28 AM PDT) + +-------+ + + + | Component | Value | Ref Range | Performed | Pathologist | | | | | At | Signature | + +-------+ + + + | INR | 1.13 | 0.90 - 1.20 INR | [facility] [...] [facility] | [address] | [place] [address] | | | SERVICES, CORE | PARK [...] equation recommended by the | [facility] | | National Kidney Disease [...] [facility] | [address] | [place] [address] | | | LYDIA RANGEL | CLARENCE [...] view image for the detailed interpretation from [employer] results. | CARDIOLOGY | + + + + + + + + | Performing | Address | City/State/Zipcode | Phone Number | | Organization | | | | + + + + + | [facility] | [address] | [place], [place] | | | CARDIOLOGY | [address] | [address] | | + + + + + [...] [facility] | [address] | [place] [address] | | | SERVICES, CORE | PARK [...] | + + + + + | [facility] | [address] | [place] [address] | | | CLAIRE, LYDIA | CLARENCE [...] | 1 tablet | | | | ftqxuoobvl-ziqlapdvbqqeg-urctksji | | 13 8:02 | | | [...] 13 7:36 | | | | | HOT TAMALE MAN infusion intravenous, | | PM PDT | [...] | | | | Until [facility] 11/11/12 at 0702 | | | [...]
--- OUTSIDE RECORDS SUMMARY | ~2019-12-02 | XMS | Encounter Summary ---
Demographics + + + | Address | [address] | | | [place] [address] | + + + | Home Phone [...] [place], [place] | | | | | [address] | | + + + + + | Ellie Vang | ECON | Unknown | | + + + + + Care Team Providers + +------+ + | Care Public Service Officer Name | Role | Phone | + +------+ + | Fadi Goodrcih DO | PCP | | + +------+ [...] | | | | [address] | [place], [place] | | | | | Physicians [place], | [address] | | | | | 2nd Floor | [phone] | | | | | [place], [place] | | | | | | [address] | | | | | | [phone] | | | +--------+---------+ + + + [...] Dr. Andie Brian Incisional hernia repair 02/2015 [facility]/ Dr. Cantu PHYSICAL EXAMINATION: BP 133/63 [...] GENERAL SURGERY AT [facility] [address] [facility] Mailcode: [address] [place] [address] documented in this encounter Plan of Treatment +--------+---------+ + + + | Date | Type | Specialty | Care Team | Description | +--------+---------+ + + + | 03/15/ | Office | Cardiology | Randell Franks, | | | 2019 | Visit | | [address] | | | | | | [place], [place] | | | | | | [address] | | | | | | [phone] | | | | | | | | +--------+---------+ + + + documented as of this encounter Visit Diagnoses + + | Diagnosis | + + | Incarcerated incisional hernia - Primary Incisional hernia with obstruction | + + documented in this encounter"
--- OUTSIDE RECORDS SUMMARY | ~2019-12-02 | XMS | Encounter Summary ---
Demographics + + + | Address | [address] | | | [place] [address] | + + + | Home Phone [...] + + + | Organization | [facility] | | | and [...] Providers + +------+ + | Care Branch Mechanic Name | Role | Phone | + +------+ + PCP | Unavailable | + +------+ + Encounter Details +--------+ + + + + | Date | Type | Department | Care Team | Description | +--------+ + + + + | 02/17/ | Orders Only | [facility] | Provider, | Pure | | 2019 | | SYSTEM GENERIC OP | MD [address] | hyperglyceridemia; | | | | CONVERSION [address] | [address] | Hypokalemia; | | | | [address] [place], [place] | [place] [address] | Dehydration; | | | | [address] | | Hyperuricemia | | | | [phone] | | without signs of | | [...] RICHEY | | | | | | [place] [address] | | | | | | [phone] | | | | | | | [...]
--- OUTSIDE RECORDS SUMMARY | ~2019-12-02 | XMS | Encounter Summary ---
Demographics + + + | Address | [address] | | | [place] [address] | + + + | Home Phone [...] [place], [place] | | | | | [address] | | + + + + + | Ellie Vang | ECON | Unknown | | + + + + + Care Team Providers + +------+ + | Care Material Handler Floorperson Name | Role | Phone | + [...] | Center at [facility] [address] | MD [address] | | | | | [address] | [facility] | | | | | Mailcode: Center | [place], [place] | | | | | for Health and | [address] | | | | | [facility] 2 | [phone] | | | | | [place], [place] | | | | | | [address] | | | | | | [phone] | | | +--------+ + + + [...] [place] | | | | | | [address] | | | | | | [phone] | | | | | | | | +--------+---------+ + + + documented as of this encounter Visit Diagnoses Not on filedocumented in this encounter"
--- OUTSIDE RECORDS SUMMARY | ~2019-12-02 | XMS | Encounter Summary ---
Demographics + + + | Address | [address] | | | [place] [address] | + + + | Home Phone [...] [place], [place] | | | | | [address] | | + + + + + | Ellie Vang | ECON | Unknown | | + + + + + Care Team Providers + +------+ + | Care Wheel Mill Operator Name | Role | Phone [...] 2019 | | Center at [facility] [address] | MD [address] | Review | | | | [address] | [facility] | | | | | Mailcode: Center | [place], [place] | | | | | [facility] and | [address] | | | | | [place] [address] | [phone] | | | | | [place], [place] | | | | | | [address] | | | | | | [phone] | | | +--------+ + + + [...] [address]ann[address] | | | | | | [place] | | | | | | [address] | | | | | | [phone] | | | | | | | | +--------+---------+ + + + documented as of this encounter Visit Diagnoses Not on filedocumented in this encounter"
--- OUTSIDE RECORDS SUMMARY | ~2019-12-02 | XMS | Encounter Summary ---
Demographics + + + | Address | [address] | | | [place] [address] | + + + | Home Phone [...] [place], [place] | | | | | [address] | | + + + + + | Ellie Vang | ECON | Unknown | | + + + + + Care Team Providers + +------+ + | Care Express Manager Name | Role | Phone | [...] [place] | | | | | | [address] | | | | | | [phone] | | | | | | | | +--------+---------+ + + + documented as of this encounter Visit Diagnoses Not on filedocumented in this encounter"
--- OUTSIDE RECORDS SUMMARY | ~2019-12-02 | XMS | Encounter Summary ---
Demographics + + + | Address | [address] | | | [place] [address] | + + + | Home Phone [...] [place], [place] | | | | | [address] | | + + + + + | Ellie Vang | ECON | Unknown | | + + + + + Care Team Providers + +------+ + | Care Spinning Doffer Name | Role | Phone | + [...] MD,PhD | | | | | [facility] | [address] | | | | | Hospital Admitting | [place], [place] | | | | | Desk Located on the | [address] | | | | | 9th floor | [phone] | | | | | [place], [place] | | | | | | [address] | Graham Honeycutt, | | | | | | INDUSTRIAL REHABILITATION CONSULTANT [address] | | | | | | [address] | | | | | | [place], [place] | | | | | | [address] | | | | | | [phone] | | | | | | | [...] | | Endotracheal Tube; 7; Oral; | INDUSTRIAL REHABILITATION CONSULTANT | INDUSTRIAL REHABILITATION CONSULTANT | | | Cuffed; 06/23/18; 1542 | [...] [address] | | | | | | [place], [place] | | | | | | [address] | | | | | | [phone] | | | | | | | [...]
--- OUTSIDE RECORDS SUMMARY | ~2019-12-02 | XMS | Encounter Summary ---
Demographics + + + | Address | [address] | | | [place] [address] | + + + | Home Phone [...] [place], [place] | | | | | [address] | | + + + + + | Ellie Vang | ECON | Unknown | | + + + + + Care Team Providers + +------+ + | Care P[employer] Farm Supervisor Name | Role | Phone | [...] | | | Procedures | | [address] [place], | | | | | [place] | | [place] | | | | | INITIAL | | [address] | | | | | ASSESSMNT | [...] [facility] [address] [facility] | mellitus (HCC) | | | | [facility] | [address] | (Primary Dx); Morbid | | | | for Health and | [place], [place] | obesity (HCC) | | | | [place] [address] | [address] | | | | | [place], [place] | | | | | | [address] | | | | | | [phone] | | | +--------+---------+ + + + [...] PDTNutrition appointment, -try keeping food logs online: -www.[employer] -[employer] -Aim for 0611-9228 calories a day -Increase physical activity -try [...] appropriate portions. Denies any binge eating. Weight jacquard loom card changer the past year: > 100 lb [...] see an RD for 2 years in [place] but insurance quit paying for it. Up [...] 1000/d--a more appropriate long-term range would be 0746-4199/day. Inadequat e calcium intake; did not address [...] w/ meals & snacks 2. Aim for 2735-6837 kcal/d 3. Keep food logs (at least [...] needed. Olga Lidia Montanez RD, [place] Pager [phone] documented in this en counter Plan of Treatment +--------+---------+ + + + | Date | Type | Specialty | Care Team | Description | +--------+---------+ + + + | 03/15/ | Office | Cardiology | Randell Franks, | | | 2019 | Visit | | [address] | | | | | | [place], [place] | | | | | | [address] | | | | | | [phone] | | | | | | | [...]
--- OUTSIDE RECORDS SUMMARY | ~2019-12-02 | XMS | Encounter Summary ---
Demographics + + + | Address | [address] | | | [place] [address] | + + + | Home Phone [...] + | Organization | [facility] | | | and Jeffana [...] Providers + +------+ + | Care Repair Mechanic Name | Role | Phone [...] [place] | | | | | | [address] | | | | | | [phone] | | | +--------+ + + + [...] | | | | | [place] [address] | | | | | | [phone] | | | | | | | | +--------+---------+ + + + documented as of this encounter Visit Diagnoses + + | Diagnosis | + + | Absence of menstruation | + + documented in this encounter"
--- OUTSIDE RECORDS SUMMARY | ~2019-12-02 | XMS | Encounter Summary ---
Demographics + + + | Address | [address] | | | [place] [address] | + + + | Home Phone [...] [place], [place] | | | | | [address] | | + + + + + | Ellie Vang | ECON | Unknown | | + + + + + Care Team Providers + +------+ + | Care Bank And Savings Securities Trader Name | Role | Phone | [...] floor | | | | | | [place], [place] | | | | | | [address] | | | +--------+ + + + [...] Flannery | | | | | | [place], [place] | | | | | | [address] | | | | | | [phone] | | | | | | | | +--------+---------+ + + + documented as of this encounter Visit Diagnoses Not on filedocumented in this encounter"
--- OUTSIDE RECORDS SUMMARY | ~2019-12-02 | XMS | Encounter Summary ---
Demographics + + + | Address | [address] | | | [place] [address] | + + + | Home Phone [...] [place], [place] | | | | | [address] | | + + + + + | Ellie Vang | ECON | Unknown | | + + + + + Care Team Providers + +------+ + | Care Qa Developer Name | Role | Phone | [...] | | | | | | [place], [place] | | | | | | [address] | | | | | | [phone] | | | +--------+ + + + [...] | | | | | | [place], [place] | | | | | | [address] | | | | | | [phone] | | | | | | | | +--------+---------+ + + + documented as of this encounter Visit Diagnoses Not on filedocumented in this encounter"
--- OUTSIDE RECORDS SUMMARY | ~2019-12-02 | XMS | Encounter Summary ---
Demographics + + + | Address | [address] | | | [place] [address] | + + + | Home Phone [...] [place], [place] | | | | | [address] | | + + + + + [...] | Lab | Laboratory at [facility] | | Type 2 diabetes | | 2015 | | [address] | | mellitus (HCC) | | | | [place], [place] | | | | | | [address] | | | | | | [phone] | | | +--------+------+ + + + [...] Flannery | | | | | | [place], [place] | | | | | | [address] | | | | | | [phone] | | | | | | | [...] + | [facility] | [address] [facility] | [place] [address] | | | SERVICES, CORE | PARK [...] [facility] | [address] [facility] | [place] [address] | | | SERVICES, SPECIAL | PARK [...]
--- OUTSIDE RECORDS SUMMARY | ~2019-12-02 | XMS | Encounter Summary ---
Demographics + + + | Address | [address] | | | [place] [address] | + + + | Home Phone [...] [place], [place] | | | | | [address] | | + + + + + | Ellie Vang | ECON | Unknown | | + + + + + Care Team Providers + +------+ + | Care Door Liner Name | Role | Phone | [...] [address] [facility] [place] | | | | | [address] | [address] | | | | | [place], | [phone] | | | | | 4th floor [place], | | | | | | [place] [address] | | | | | | [phone] | | | +--------+ + + + [...] [place] | | | | | | [address] | | | | | | [phone] | | | | | | | | +--------+---------+ + + + documented as of this encounter Results EGD (06/23/2018 3:58 PM PST) + + | Specimen | + + | | + + + +--------- -----+ | Narrative | Performe d At | + +--------- -----+ | MRN: | [facility] | | [id number] Date: 06/23/2018Patient Name: Elzbieta Curtis #: | ENDOSCOP Y | | [id number] of : 1975CSN: [id number] Type: | | | AmbulatoryRoom: SORProcedure: Upper GI | | | endoscopyIndications: Nausea with vomiting, Status post | | | Vbcy-jg-BLvmuprfbg: KALEB MILES MD (Doctor), JOSE | | | NASIMA, Vice President Supply Chain | | | (Vice President Supply Chain)Referring MD: DANIELLE GARCÍAPRequesting | | | Provider: [...] | | | The Olympus [id number] Gastroscope #[id number] was | | | introduced through the [...] endoscope without resistance. The | | | toysn-gk-erzlnvn limb was characterized by healthy appearing | [...] 06/23/2018 3:58 [facility] Letter to: RADHA MICHAEL, DO | [...]
--- OUTSIDE RECORDS SUMMARY | ~2019-12-02 | XMS | Encounter Summary ---
Demographics + + + | Address | [address] | | | [place] [address] | + + + | Home Phone [...] [place], [place] | | | | | [address] | | + + + + + | Ellie Vang | ECON | Unknown | | + + + + + Care Team Providers + +------+ + | Care Applied Research Director Name | Role | Phone | [...] | | | Ave Mailcode: [address] | [place], [place] | | | | | [facility] | [address] | | | | | and [place], | [phone] | | | | | [place] [address] | | | | | | Floor [place], [place] | | | | | | [address] | | | | | | [phone] | | | +--------+ + + + [...] | | 2019 | Visit | | [address] | | | | | | [place], [place] | | | | | | [address] | | | | | | [phone] | | | | | | | | +--------+---------+ + + + documented as of this encounter Visit Diagnoses Not on filedocumented in this encounter"
--- OUTSIDE RECORDS SUMMARY | ~2019-12-02 | XMS | Encounter Summary ---
Demographics + + + | Address | [address] | | | [place] [address] | + + + | Home Phone [...] [place], [place] | | | | | [address] | | + + + + + | Ellie Vang | ECON | Unknown | | + + + + + Care Team Providers + +------+ + | Care Impregnation Operator Name | Role | Phone | [...] [place] | | | | | | [address] | | | | | | [phone] | | | +--------+ + + + [...] | | | | | [place], [place] | | | | | | [address] | | | | | | [phone] | | | | | | | | +--------+---------+ + + + documented as of this encounter Visit Diagnoses Not on filedocumented in this encounter"
--- OUTSIDE RECORDS SUMMARY | ~2019-12-02 | XMS | Encounter Summary ---
Demographics + + + | Address | [address] | | | [place] [address] | + + + | Home Phone | | + + + | Preferred Language | Unknown | + + + | Marital Status | | + + + | Buddhism Affiliation | Unknown | + + + | Race | Unknown | + + + | Ethnic Group | Unknown | + + + Author + + + | Author | [facility] | | | and Jeffana | + + + | Organization | [facility] | | [...] Providers + +------+ + | Care Jewelry Store Manager Name | Role | Phone | + +------+ + PCP | Unavailable | + +------+ + Encounter Details +--------+ + + + + | Date | Type | Department | Care Team | Description | +--------+ + + + + | 02/14/ | Orders Only | [facility] | Augustine Fu MD | | | 2016 | | NEPHROLOGY [place] | [address] [facility] [place] | | | | | [address] | [address] [facility], [place] | | | | | [place] | [address] | | | | | [address] | | | | | | [phone] | | | +--------+ + + + [...] RICHEY | | | | | | [place] [address] | | | | | | [phone] | | | | | | | [...]
--- OUTSIDE RECORDS SUMMARY | ~2019-12-02 | XMS | Encounter Summary ---
Demographics + + + | Address | [address] | | | [place] [address] | + + + | Home Phone [...] [place], [place] | | | | | [address] | | + + + + + | Ellie Vang | ECON | Unknown | | + + + + + Care Team Providers + +------+ + | Care Paint Grinder Name | Role | Phone | [...] | | | [address] | [place], [place] | | | | | [address] | [address] | | | | | [place]co [place], | [phone] | | | | | [address] [facility], | | | | | | [place] [address] | | | | | | [phone] | | | +--------+ + + + [...] [place] | | | | | | [address] | | | | | | [phone] | | | | | | | | +--------+---------+ + + + documented as of this encounter Visit Diagnoses Not on filedocumented in this encounter"
--- OUTSIDE RECORDS SUMMARY | ~2019-12-02 | XMS | Encounter Summary ---
Demographics + + + | Address | [address] | | | [place] [address] | + + + | Home Phone [...] [place], [place] | | | | | [address] | | + + + + + | Ellie Vang | ECON | Unknown | | + + + + + Care Team Providers + +------+ + | Care Director Business Management Name | Role | Phone | [...] + + | 05/13/ | Emergency | [facility] Emergency | Nay Joe | | | 2019 - | | Department [address] | | | | | [address] | [address] | | | 05/14/ | | [facility] | [place], [place] | | | 2019 | | [place], [place] | [address] | | | | | [address] | [phone] | | | | | [phone] | | | +--------+ + + + [...] might be different fr om the original. [facility] Discharge Summary Green Surgery Admit Date: [...] by mouth once daily at bedtime. CALCIUM CRB&SOB-I2-EKL99-GENIS ORAL Take 2 tablets by mouth two [...] passing gas, please go directly to [facility] department to be evaluated. Pain Medications: [...] the prescribed narcotic-opioid (e.g. oxycodone, hydrocodone, Vicodin, Winger, Percoce t, Dilaudid) as needed. Opioid pain medications may cause constipation, so be sure to take a stool softener if you take an opioid pain medication. FOLLOW-UP: Follow-up with your primary care provider for pain control. Dr. Tiwari's sole painter will contact you to try to find a date for surgery. Follow Up: Future Appointments Provider Department Dept Phone Center 06/27/2019 11:55 AM [facility] PHONE/RN CLIN 3 [facility] at [place] [address] [phone] [facility] 06/30/2019 11:30 AM Aly Franks Cardiology in [facility] [phone] Cardiology Schedule the following appointment(s) when you get home JONES TIWARI MD. Specialty: General Surgery Why: Dr. Tiwari's sole painter will call you to schedule a surgery date. Contact information [address] [place] [address] [place] [address] Kenyatta Hylton MD. Specialty: Family [...] oriented. Grossly intact. Anisa Christopher MD PhD [facility] General Surgery ATTENDING PHYSICIAN STATEMENT I saw the patient and have repeated the pertinent portions of the history and physical exam . I agree with the findings, assessment and plan as documented by the resident. Johana Holloway MD Division of Gastrointestinal and General Surgery [facility] [address] [place] [address] Office: [phone] documented in this e ncounter Discharge Instructions [...] surgery date up as possible and the sole painter will contact you. Elec tronically signed by [...] passing gas, please go directly to the [facility] department to be evaluated. Pain Medications: [...] the prescribed narcotic-opioid (e.g. oxycodone, hydrocodone, Vicodin, Winger, Percoce t, Dilaudid) as needed. Opioid pain medications may cause constipation, so be sure to take a stool softener if you take an opioid pain medication. FOLLOW-UP: Follow-up with your primary care provider for pain control. Dr. Tiwari's sole painter will contact you to try to find [...] | | 0 | | | | CRB&ZFP-C3-XMX24-GEN | mouth two times | | | [...] [place] | | | | | | [address] | | | | | | [phone] | | | | | | | [...] [facility] | [address] | [place], [place] | | | [place] [facility] | [address] | [address] | | | TESTS | | | [...] [facility] | [address] | [place] [address] | | | SERVICES, CORE | CLARENCE [...] MDRD equation recommended by the National | [facility] | | Kidney Disease [...] [facility] | [address] | [place] [address] | | | SERVICES, [facility] | [address] [...] abdomen and pelvis WITH intravenous contrast. | [facility] | | HISTORY: Concern for incarcerated [...] [facility] | [address] | [place] [address] | | | SERVICES, CORE | PARK [...] 5-6 weeks | | | 850 - 73764 6-7 weeks | | | 4000 - 463288 7-12 weeks | | | 48878 - 644448 12-16 weeks | | | 87635 - 028412 16-29 | | | weeks 1400 - 46634 | | | 29-41 weeks 940 - 76572 | | | This test has not been approved for use as a tumor marker in | | | males or females. | | + + + + + + + + | Performing | Address | City/State/Zipcode | Phone Number | | Organization | | | | + + + + + | [facility] | [address] [facility] | [place] [address] | | | SERVICES, CORE | PARK [...] [facility] | [address] | [place] [address] | | | SERVICES, CORE | PARK [...] [facility] | [address] | [place] [address] | | | LYDIA RANGEL | [address] | | | + + + + + ED INFORMATION EXCHANGE (05/13/2019 5:14 PM PDT) + + | Specimen | + + | | + + + + + | Narrative | Performed At | + + + | COLLECTIVE?NOTIFICATION?05/13/2019 17:13?DYLAN ROMERO?MRN: | [facility] | | [id number] Criteria Met Has Guidelines PDMP Security | MEDICAL | | and Safety No recent Security Events currently on file ED Care | TECH[employer]OLOGIES | | Guidelines [facility] Last Updated: 12/06/18 9:53 AM | | | Care Coordination: Receiving mental health services with | | | [facility].? Please contact [facility] for mental health concerns.? | | | Sarah/Toni [place]: [phone]? [place]: [phone].? | | | These are guidelines and the provider should exercise clinical | | | judgment when providing care. Care History Medical/Surgical | | | 05/11/19 12:00 AM [facility] Patient is | | | currently established with [facility]. If patient is seen in | | | the ED during business hours. Please contact [facility] | | | [facility] [...] AM | | | [facility] PATIENT HAS A [...] SUDOGEST 30 MG TABLET 5 BERNARDO VERONICA, MICROELECTRONICS ASSEMBLER 0 | | | 2019-03-30 SUDOGEST 30 MG TABLET 30 BERNARDO MARTIN, MICROELECTRONICS ASSEMBLER 0 | | | 2019-03-20 ALPRAZOLAM 1 [...] (12 mo.) Facility Visits | | | [facility] 1 [facility] 1 | | | [facility] 2 Total 4 Note: Visits indicate total | | | known visits. Recent Emergency Department Visit Summary Date | | | Facility City State Type Diagnoses or Chief Complaint May 13, 2019 | | | [facility] [place] Emergency | | | 10,800. A303 [facility] [place] [place] | | | Emergency Nausea with vomiting, unspecified Solitary | | | pulmonary nodule Anxiety disorder, unspecified Ventral | | | hernia without obstruction or gangrene Unspecified abdominal | | | pain Diarrhea, unspecified Allergy status to oth | | | drug/meds/biol subst status Prsnl hx of TIA (TIA), and cereb | | | infrc w/o resid deficits Other buttermaker continuous churn (current) drug therapy | | | Allergy status to penicillin December 03, 2018 [facility] | | | [facility] [place]. [place] Emergency RIGHT LEG PAIN DUE TO FALL | | | Strain of unsp musc/tend at lower leg level, right leg, init Jul | | | 2018 [facility]. [place] Emergency Other mcc | | | (current) drug therapy Upper [...] Service Dates Treva | | | Rob Artificial Foliage Arranger/Auto Clocks Repairer Mar 27, 2018 - | | | Current Bernard Hylton MD Internal Medicine: Pulmonary Disease | | | Aug 23, 2018 - Current Kyte This patient has | | | registered at the [facility] Emergency | | | Department For more information visit: | | | [email or web address] | | | [id number] PLEASE NOTE: 1. Any care recommendations [...] the limitations of applicable | | | [employer] Policies. 3. You should consult directly with the | | | organization that provided a care guideline or other clinical | | | history with any questions about additional information or accuracy | | | or completeness of information provided. ? 2019 [employer] | | | [employer]. - www.[employer] | | + + + + + | Procedure Note | + + | Service Account, Rtf Results Inbound - 05/13/2019 5:16 PM PDT Formatting of this | | note might be different from the original.COLLECTIVE?NOTIFICATION?05/13/2019 | | 17:13?DYLAN ROMERO? [facility] Has Guidelines PDMPSecurity and | | SafetyNo recent Security Events currently on fileED Care Guidelines from [facility] - | | Irma Updated: 12/06/18 9:53 AM Care Coordination:Receiving mental health | | services with [facility].? Please contact [facility] for mental health concerns.? | | [facility]: [phone]? [place]: [phone].?These are guidelines | | and the provider should exercise clinical judgment when providing care.Care | | HistoryMedical/Ithyhdks85/16/19 12:00 AM [facility] Patient is currently | | established with [...] clinical judgment when providing care.08/23/18 12:00 AM [facility] | | Hospital PATIENT HAS A [...] SUDOGEST 30 MG TABLET 5 BERNARDO MARTIN, MICROELECTRONICS ASSEMBLER 0 2019-03-30 SUDOGEST 30 MG TABLET 30 | | BERNARDO MARTIN, MICROELECTRONICS ASSEMBLER 0 2019-03-20 ALPRAZOLAM 1 MG TABLET 60 [...] 0 E.D. Visit Count (12 mo.)Facility Visits [facility] | | Health 1 [facility] 1 [facility] 2 Total 4 Note: | | Visits indicate total known visits. Recent Emergency Department Visit SummaryDate | | Facility City State Type Diagnoses or Chief Complaint May 13, 2019 [facility] | | [facility] [place] Emergency 10,800. A303 May 10, 2019 [facility] | | [place] Emergency Nausea with vomiting, unspecified Solitary pulmonary nodule | | Anxiety disorder, unspecified Ventral hernia without obstruction or gangrene | | Unspecified abdominal pain Diarrhea, unspecified Allergy status to oth | | drug/meds/biol subst status Prsnl hx of TIA (TIA), and cereb infrc w/o resid deficits | | Other buttermaker continuous churn (current) drug therapy Allergy status to penicillin December 03, 2018 | | [facility] [place] Emergency RIGHT LEG PAIN DUE TO FALL Strain of | | unsp musc/tend at lower leg level, right leg, init Aug 22, 2018 [facility] | | [place] Emergency Other mcc (current) drug therapy Upper abdominal pain, | | unspecified Bariatric surgery status Allergy status to oth drug/meds/biol subst | | status Noninfective gastroenteritis and colitis, unspecified Obesity, unspecified | | Anxiety disorder, unspecified remote computer terminal operator (current) use of aspirin Allergy status | | to penicillin Personal history of pulmonary embolism Recent Inpatient Visit | | SummaryNo recorded inpatient visits. Care TeamProvider Specialty Phone Fax Service Dates | | Rob Tilley Artificial Foliage Arranger/Auto Clocks Repairer Mar 27, 2018 - Current | | Bernard Hylton MD Internal Medicine: Pulmonary Disease Aug 23, 2018 - Current | | [employer] Eddi patient has registered at the [facility] | | Emergency Department For more information visit: | | [email or web address] PLEASE | | NOTE: 1. Any care [...] to the | | limitations of applicable [employer] Policies. 3. You should consult directly with | | the organization that provided a care guideline or other clinical history with any | | questions about additional information or accuracy or completeness of information | | provided.? 2019 [employer]. - www.[employer] | |Unique Pharmacies 3 | |Benzos 4 | |Opioids 7 | |Long Acting Opioids 0 | | | | | | | |E.D. Visit Count (12 mo.) | |Facility Visits | |[facility] 1 | |[facility] 1 | |[facility] 2 | |Total 4 | |Note: Visits indicate total known visits. | | | |Recent Emergency Department Visit Summary | |Date Facility City State Type Diagnoses or Chief Complaint | |May 13, 2019 [facility] [place] Emergency | | 10,800. A303 | | | |May 10, 2019 [facility] [place] Emergency | | Nausea with vomiting, unspecified | | Solitary pulmonary nodule | | Anxiety disorder, unspecified | | Ventral hernia without obstruction or gangrene | | Unspecified abdominal pain | | Diarrhea, unspecified | | Allergy status to oth drug/meds/biol subst status | | Prsnl hx of TIA (TIA), and cereb infrc w/o resid deficits | | Other buttermaker continuous churn (current) drug therapy | | Allergy status to penicillin | | | |December 03, 2018 [facility]. [place] Emergency | | RIGHT LEG PAIN DUE TO FALL | | Strain of unsp musc/tend at lower leg level, right leg, init | | | |Aug 22, [address] [facility] [place]. [place] Emergency | | Other buttermaker continuous churn (current) drug therapy | | Upper abdominal [...] Phone Fax Service Dates | |Rob Tilley Artificial Foliage Arranger/Auto Clocks Repairer Mar 27, 2018 - Current | |Bernard Hylton MD Internal Medicine: Pulmonary Disease Aug 23, 2018 - Current | | | |[employer] | |This patient has registered at the [facility] [place] [facility] t | |For more information visit: [email or web address] | |PLEASE NOTE: | | 1. Any [...] information provided. | | | |? 2019 [employer]. - [employer] | + + + + + + + | Performing | Address | City/State/Zipcode | Phone Number | | Organization | | | | + + + + + | [facility] | [address] | [place], [place] | [phone] | | TECH[employer]IES | [address] | [address] | | + + + + + [...] | | | | ONCE, 1 dose, [facility] 05/13/19 at | | PM PDT [...]
--- OUTSIDE RECORDS SUMMARY | ~2019-12-02 | XMS | Encounter Summary ---
Demographics + + + | Address | [address] | | | [place] [address] | + + + | Home Phone [...] [place], [place] | | | | | [address] | | + + + + + | Ellie Vang | ECON | Unknown | | + + + + + Care Team Providers + +------+ + | Care Electric Motor Winders Assembler Name | Role | Phone | [...] [place] | | | | | | [place], [place] | | | | | | [address] | | | | | | [phone] | | | +--------+ + + + [...] Flannery | | | | | | [place], [place] | | | | | | [address] | | | | | | [phone] | | | | | | | [...] | | | | | 08[facility][birth year]-45[facility] | | | | | | [...] in | | | | | | Aurelia. | | | | | | | | | | | | Julia Blackman at [facility]. | | | | | [...] | | | | artery. A 4.1 Congolese | | | | | | catheter [...] | | + +---------+ + + | [facility] DEPARTMENT OF | | | | | RADIOLOGY | | | | + +---------+ + + documented in this encounter Visit Diagnoses Not on filedocumented in this encounter
--- OUTSIDE RECORDS SUMMARY | ~2019-12-02 | XMS | Encounter Summary ---
Demographics + + + | Address | [address] | | | [place] [address] | + + + | Home Phone [...] [place], [place] | | | | | [address] | | + + + + + | Ellie Vang | ECON | Unknown | | + + + + + Care Team Providers + +------+ + | Care Program Development Manager Name | Role | Phone [...] Preventive at [facility] | [address] | | | | | [address] | [place], [place] | | | | | Mailcode: CH9A | [address] | | | | | [facility] | [phone] | | | | | and Healing, | | | | | | [address] | | | | | | [place], [place] | | | | | | [address] | | | | | | [phone] | | | +--------+ + + + [...] [place] | | | | | | [address] | | | | | | [phone] | | | | | | | | +--------+---------+ + + + documented as of this encounter Visit Diagnoses Not on filedocumented in this encounter"
--- OUTSIDE RECORDS SUMMARY | ~2019-12-02 | XMS | Encounter Summary ---
[...] [place], [place] | | | | | [address] | | + + + + + | Ellie Vang | ECON | Unknown | | + + + + + Care Team Providers + +------+ + | Care Upset Operator Name | Role | Phone | [...] | | | | | | [place], [place] | | | | | | [address] | | | | | | [phone] | | | +--------+ + + + [...] Flannery | | | | | | [place], [place] | | | | | | [address] | | | | | | [phone] | | | | | | | | +--------+---------+ + + + documented as of this encounter Visit Diagnoses Not on filedocumented in this encounter"
--- OUTSIDE RECORDS SUMMARY | ~2019-12-02 | XMS | Encounter Summary ---
Demographics + + + | Address | [address] | | | [place] [address] | + + + | Home Phone [...] [place], [place] | | | | | [address] | | + + + + + | Ellie Vang | ECON | Unknown | | + + + + + Care Team Providers + +------+ + | Care Cilnical Scientist Name | Role | Phone | [...] | 2019 | Visit | Preventive at [facility] | MD [address] | mellitus without | | | | [address] | [place], [place] | complication, with | | | | Mailcode: CH9A | [address] | long-term current | | | | [facility] | [phone] | use of insulin ([facility]) | | | | and Healing, | | (Primary Dx); | | | | Building [address] | | Morbid obesity with | | | | [place], [place] | | BMI of 70 and over, | | | | [address] | | adult (HCC) | | | | [phone] | | | +--------+---------+ + + + [...] started Type 2 diabetes mellitus ([facility]) 04/14/2013 Priority: 5 Iron deficiency anemia due to chronic blood loss 11/11/2015 Priority: 6 Overview Note: Ferritin 18 on 10/2015 Hypoalbuminemia (no proteinuria, need to rule out synthetic, nutrition, loss) 6 Priority: 6 Hypothyroidism 08/28/2014 Priority: 8 Morbid obesity with BMI of 70 and over, adult ([facility]) 02/02/2017 Chronic diastolic heart failure (HCC) [...] daily. BELBUCA 300 mcg buccal film CALCIUM CRB&VPO-Q1-XIE11-GENIS ORAL Take 2 tablets by mouth two [...] of metformin, and she reports her last axwjy-mx-hgfh A1 c was 5.5% on this dose. [...] CREATININE PLASMA (LAB) 0.85 0.70 EGFR - MARSHALLESE >60 >60 EGFR NON -MARSHALLESE >60 >60 GLUCOSE, PLASMA (LAB) 123 (H) [...] is currently being managed well by her Junior Architect with diuretics and main tenance of her [...] management of her heart failure by her Junior Architect 3) discontinue metformin 4) check 24 urine [...] Flannery | | | | | | [place], [place] | | | | | | [address] | | | | | | [phone] | | | | | | | [...] [address] | [place] | [phone] | | [place] | | | | [...]
--- OUTSIDE RECORDS SUMMARY | ~2019-12-02 | XMS | Encounter Summary ---
Demographics + + + | Address | [address] | | | [place] [address] | + + + | Home Phone [...] [place], [place] | | | | | [address] | | + + + + + | Ellie Vang | ECON | Unknown | | + + + + + Care Team Providers + +------+ + | Care Superior Court Clerk Name | Role | Phone | [...] | | 2018 | | Center at [facility] [address] | ACNP [address] | | | | | [address] | [address] [place], [place] | | | | | Mailcode: Center | [address] | | | | | for Health and | [phone] | | | | | [place] [address] | | | | | | [place], [place] | | | | | | [address] | | | | | | [phone] | | | +--------+ + + + [...] [place] | | | | | | [address] | | | | | | [phone] | | | | | | | | +--------+---------+ + + + documented as of this encounter Visit Diagnoses Not on filedocumented in this encounter"
--- OUTSIDE RECORDS SUMMARY | ~2019-12-02 | XMS | Encounter Summary ---
[...] [place], [place] | | | | | [address] | | + + + + + | Ellie Vang | ECON | Unknown | | + + + + + Care Team Providers + +------+ + | Care Commercial Teller Name | Role | Phone | + [...] | | | | | | [place], [place] | | | | | | [address] | | | | | | [phone] | | | +--------+ + + + [...] Flannery | | | | | | [place], [place] | | | | | | [address] | | | | | | [phone] | | | | | | | | +--------+---------+ + + + documented as of this encounter Visit Diagnoses Not on filedocumented in this encounter"
--- OUTSIDE RECORDS SUMMARY | ~2019-12-02 | XMS | Encounter Summary ---
Demographics + + + | Address | [address] | | | [place] [address] | + + + | Home Phone [...] + | Organization | [facility] [...] Team Providers + +------+ + | Care Export Traffic Department Manager Name | Role | Phone | + +------+ + PCP | Unavailable | + +------+ + Encounter Details +--------+ + + + + | Date | Type | Department | Care Team | Description | +--------+ + + + + | 02/14/ | Orders Only | [facility] | Augustine Fu MD | | | 2016 | | NEPHROLOGY [place] | [address] [facility] | | | | | [address] | [address] [facility] [place] | | | | | [place] | [address] | | | | | [address] | | | | | | [phone] | | | +--------+ + + + [...] RICHEY | | | | | | [place] [address] | | | | | | [phone] | | | | | | | [...]
--- OUTSIDE RECORDS SUMMARY | ~2019-12-02 | XMS | Encounter Summary ---
Demographics + + + | Address | [address] | | | [place] [address] | + + + | Home Phone [...] [place], [place] | | | | | [address] | | + + + + + | Ellie Vang | ECON | Unknown | | + + + + + Care Team Providers + +------+ + | Care Licensed Nuclear Operator Name | Role | Phone | [...] | | | [address] | [place], [place] | | | | | [address] | [address] | | | | | [place], | [phone] | | | | | [address] [facility], | | | | | | [place] [address] | | | | | | [phone] | | | +--------+ + + + [...] [place] | | | | | | [address] | | | | | | [phone] | | | | | | | | +--------+---------+ + + + documented as of this encounter Visit Diagnoses Not on filedocumented in this encounter"
--- OUTSIDE RECORDS SUMMARY | ~2019-12-02 | XMS | Encounter Summary ---
Demographics + + + | Address | [address] | | | [place] [address] | + + + | Home Phone [...] + | Katalina Padilla | ECON | [address] | | | | | [place], [place] | | | | | [address] | | + + + + + | Ellie Vang | ECON | Unknown | | + + + + + Care Team Providers + +------+ + | Care Conference Service Coordinator Name | Role | Phone [...] [address] | | | | | ([facility]) Type | [address] | Ave | | | | | 2 diabetes | [place], | [place], [place] | | | | | mellitus | [place] [address] | [address] | | | | | without | Phone: | Phone: | | | | | complication | [phone] | [phone] | | | | | (HCC) | Fax: | Fax: | | | | | Procedures | [phone] | [phone] | | | | | AR EST | | | | | | [...] | unspecified type | | | | [facility] at | [place], [place] | (Primary Dx); Severe | | | | [place] [address] [address] | [address] | Morbid obesity | | | | [address] [facility] | [phone] | (HCC), BMI 88 | | | | [facility] | | | | | | [place], [place] | | | | | | [address] | | | | | | [phone] | | | +--------+---------+ + + + [...] tolerate CPAP Severe Morbid obesity ([facility]), BMI 88 11/12/2012 Priority: 4 Overview Note: [...] Bromocriptine Type 2 diabetes mellitus ([facility]) 04/14/2013 Past Surgical History Procedure Laterality Date [...] nilesh limb 150 cm or less [facility], [facility] Current Outpatient Medications [...] by mouth once daily at bedtime. CALCIUM CRB&FST-L6-GKV46-GENIS ORAL Take 2 tablets by mouth two [...] 50 mg by mouth once daily. thyroid (NECKTIE MAKER THYROID) 30 mg oral tablet tab Take [...] 9 CREATININE PLASMA (LAB) 0.82 EGFR - NEPALESE >60 EGFR NON -NEPALESE >60 GLUCOSE, PLASMA (LAB) 94 CALCIUM, PLASMA [...] is currently being managed well by her Chief Engineer Research with diuretics and main tenance of her [...] management of her heart failure by her Chief Engineer Research 3) Continue management of her ventral hernia [...] Flannery | | | | | | [place], [place] | | | | | | [address] | | | | | | [phone] | | | | | | | [...] | [address] | [place] [address] | | | SERVICES, CORE | PARK [...] HOSPITAL LABORATORY | [address] | [place] [address] | | | SERVICES, LYDIA | CLARENCE [...] 5.2Comment: Hgb A1C | <5.7 % | VASU | | | A1C | Interpretive | [...] [facility] | | considered for monitoring senior living glycemic control in patients with: | LABORATORY [...] [facility] | [address] | [place] [address] | | | SERVICES, SPECIAL | CLARENCE [...]
--- OUTSIDE RECORDS SUMMARY | ~2019-12-02 | XMS | Encounter Summary ---
Demographics + + + | Address | [address] | | | [place] [address] | + + + | Home Phone [...] [place], [place] | | | | | [address] | | + + + + + | Ellie Vang | ECON | Unknown | | + + + + + Care Team Providers + +------+ + | Care Ear Muff Assembler Name | Role | Phone | [...] | | | | | obesity | [place], [place] | | | | | | (HCC) | [address] | | | | | | Procedures | Phone: | | | | | | PHYSICAL | | | | | | | THERAPY | Fax: | | | | | | REFERRAL | [phone] | | +--------+--------+ + + + + Encounter Details +--------+ + + + + | Date | Type | Department | Care Team | Description | +--------+ + + + + | 06/22/ | Parking Meter Mechanic | Digestive Health | Ion Pandey, | Pre-op evaluation | | 2016 | | Center at [facility] [address] | [address] | (Primary Dx); Morbid | | | | [address] | [place], [place] | obesity (HCC) | | | | Mailcode: Center | [address] | | | | | for Health and | | | | | | Healing, Building 2 | | | | | | [place], [place] | | | | | | [address] | | | | | | [phone] | | | +--------+ + + + [...] Flannery | | | | | | [place], [place] | | | | | | [address] | | | | | | [phone] | | | | | | | | +--------+---------+ + + + documented as of this encounter Visit Diagnoses + + | Diagnosis | + + | Pre-op evaluation - Primary Preoperative examination, unspecified | + + | Morbid obesity (HCC) Morbid obesity | + + documented in this encounter"
--- OUTSIDE RECORDS SUMMARY | ~2019-12-02 | XMS | Encounter Summary ---
[...] Providers + +------+ + | Care Postal Supervisor Name | Role | Phone | [...] | 2019 | Visit | Preventive at [facility] | MD [address] | mellitus without | | | | [address] | [place], [place] | complication, with | | | | Mailcode: CH9A | [address] | long-term current | | | | [facility] | [phone] | use of insulin ([facility]) | | | | and Healing, | | (Primary Dx); | | | | Building [address] | | Morbid obesity with | | | | [place], [place] | | BMI of 70 and over, | | | | [address] | | adult (HCC) | | | | [phone] | | | +--------+---------+ + + + [...] lbs Phentermine started Type 2 diabetes mellitus ([facility]) 04/14/2013 Priority: 5 Iron deficiency anemia due to chronic blood loss 11/11/2015 Priority: 6 Overview Note: Ferritin 18 on 10/2015 Hypoalbuminemia (no proteinuria, need to rule out synthetic, nutrition, loss) 6 Priority: 6 Hypothyroidism 08/28/2014 Priority: 8 Morbid obesity with BMI of 70 and over, adult ([facility]) 02/02/2017 Chronic diastolic heart failure (HCC) 02/02/2017 [...] daily. BELBUCA 300 mcg buccal film CALCIUM CRB&IYM-Z1-SYK45-GENIS ORAL Take 2 tablets by mouth two [...] current facility-administered medications for this visit. S: Dylna returns in follow-up of obesity and T2DM. [...] of metformin, and she reports her last galjr-xk-boic A1 c was 5.5% on this dose. [...] CREATININE PLASMA (LAB) 0.85 0.70 EGFR - BELIZEAN >60 >60 EGFR NON -BELIZEAN >60 >60 GLUCOSE, PLASMA (LAB) 123 (H) [...] is currently being managed well by her Potato Peeler with diuretics and main tenance of her [...] management of her heart failure by her Potato Peeler 3) discontinue metformin 4) check 24 urine [...] | | | | | [place], [place] | | | | | | [address] | | | | | | [phone] | | | | | | | [...] | use of insulin ([facility]) | | | | | | Morbid [...] [address] | [place] | [phone] | | [place] | | | | [...]
--- OUTSIDE RECORDS SUMMARY | ~2019-12-02 | XMS | Encounter Summary ---
Demographics + + + | Address | [address] | | | [place] [address] | + + + | Home Phone [...] [place], [place] | | | | | [address] | | + + + + + | Ellie Vang | ECON | Unknown | | + + + + + Care Team Providers + +------+ + | Care Tankage Grinder Operator Name | Role | Phone [...] | Visit | Preventive at [facility] | [address] | mellitus without | | | | [address] | [place], [place] | complication, with | | | | Mailcode: [facility] | [address] | long-term current | | | | [facility] | [phone] | use of insulin ([facility]) | | | | and Healing, | | (Primary Dx); | | | | Building [address] | | Chronic right-sided | | | | [place], [place] | | heart failure (HCC) | | | | [address] | | | | | | [phone] | | | +--------+---------+ + + + [...] management of her heart failure by her Senior Functional Analyst 3) Check A1c, lipids 4) Await bariatric surgery in February 2018 5) Continue phentermine 37.5 mg daily 6) Continue wound care, non-pressure ambulation of right foot wound 7) Follow-up 4-6 months In the interim, the patient underwent bariatric surgery and was discharged [facility]. Today, the patient reports [...] 06/23 - She is working with the field hockey and lacrosse coach in her office - She is taking [...] tongue once daily., Disp: , Rfl: CALCIUM CRB&OPZ-C1-WHL89-GENIS ORAL, Take 2 tablets by mouth two [...] 3.19 11/28/2016 Lab Results Component Value Date [id number] 88.6 05/27/2018 Lab Results Component Value Date [...] weight of 320lbs. Plan to work with field hockey and lacrosse coach from bariatric surgery, identify etio logy of [...] is currently being managed well by her Senior Functional Analyst with diuretics and mainte nance of her [...] Gissell Clements MD Fellow, Cardiovascular Medicine Pager [phone] signed by Gissell Clements MD at 06/04/2018 [...] Flannery | | | | | | [place], [place] | | | | | | [address] | | | | | | [phone] | | | | | | | [...]
--- OUTSIDE RECORDS SUMMARY | ~2019-12-02 | XMS | Encounter Summary ---
Demographics + + + | Address | [address] | | | [place] [address] | + + + | Home Phone [...] [place], [place] | | | | | [address] | | + + + + + | Ellie Vang | ECON | Unknown | | + + + + + Care Team Providers + +------+ + | Care Scanning Clerk Name | Role | Phone | [...] | | | Procedures | | [address] [place], | | | | | [place] | | [place] | | | | | INITIAL | | [address] | | | | | ASSESSMNT | | | | | | | X15MIN [place] | | | | | | [...] at [facility] [address] | [address] [facility] | mellitus (HCC) | | | | [facility] | [address] | (Primary Dx); Morbid | | | | for Health and | [place], [place] | obesity (HCC) | | | | [place] [address] | [address] | | | | | [place], [place] | | | | | | [address] | | | | | | [phone] | | | +--------+---------+ + + + [...] PDTNutrition appointment, -try keeping food logs online: -www.[employer] -EdSurge -Simfinit -Aim for 2102-4084 calories a day -Increase physical activity -try [...] appropriate portions. Denies any binge eating. 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 Up [...] 1000/d--a more appropriate long-term range would be 4048-4721/day. Inadequat e calcium intake; did not address [...] w/ meals & snacks 2. Aim for 9257-4018 kcal/d 3. Keep food logs (at least [...] needed. Olga Lidia Montanez RD, LD Pager [phone] documented in this en counter Plan of Treatment +--------+---------+ + + + | Date | Type | Specialty | Care Team | Description | +--------+---------+ + + + | 03/15/ | Office | Cardiology | Randell Franks, | | | 2019 | Visit | | [address] | | | | | | [place], [place] | | | | | | [address] | | | | | | [phone] | | | | | | | | +--------+---------+ + + + documented as of this encounter Procedures + +--------+ + + + | Procedure Name | Priori | Date/Time | Associated Diagnosis | Comments | | | ty | | | | + +--------+ + + + | [place] [facility] INITIAL | Routin | 04/14/2013 | [...]
--- OUTSIDE RECORDS SUMMARY | ~2019-12-02 | XMS | Encounter Summary ---
Demographics + + + | Address | [address] | | | [place] [address] | [...] [place], [place] | | | | | [address] | | + + + + + | Ellie Vang | ECON | Unknown | | + + + + + Care Team Providers + +------+ + | Care Oxygen Therapist Name | Role | Phone | [...] 2019 | | Center at [facility] [address] | | Review | | | | [address] | | | | | | Mailcode: [place] | | | | | | [facility] and | | | | | | [facility] | | | | | | [place], [place] | | | | | | [address] | | | | | | [phone] | | | +--------+ + + + [...] Flannery | | | | | | [place] | | | | | | [address] | | | | | | [phone] | | | | | | | | +--------+---------+ + + + documented as of this encounter Visit Diagnoses Not on filedocumented in this encounter"
--- OUTSIDE RECORDS SUMMARY | ~2019-12-02 | XMS | Encounter Summary ---
[...] [place], [place] | | | | | [address] | | + + + + + | Ellie Vang | ECON | Unknown | | + + + + + Care Team Providers + +------+ + | Care Supervisor Coffee Name | Role | Phone | + [...] | | Center at [facility] [address] | ACNP [address] | | | | | [address] | Ave [place], [place] | | | | | Mailcode: [place] | [address] | | | | | for Health and | | | | | | [facility] | | | | | | [facility] [place] | | | | | | [address] | | | | | | | [...] Flannery | | | | | | [place], [place] | | | | | | [address] | | | | | | [phone] | | | | | | | | +--------+---------+ + + + documented as of this encounter Visit Diagnoses Not on filedocumented in this encounter"
--- OUTSIDE RECORDS SUMMARY | ~2019-12-02 | XMS | Encounter Summary ---
Demographics + + + | Address | [address] | | | [place] [address] | + + + | Home Phone [...] [place], [place] | | | | | [address] | | + + + + + | Ellie Vang | ECON | Unknown | | + + + + + Care Team Providers + +------+ + | Care Well Puller Name | Role | Phone [...] | | | | | [facility] | | | | | | [place], [place] | | | | | | [address] | | | | | | [phone] | | | +--------+ + + + [...] [place] | | | | | | [address] | | | | | | [phone] | | | | | | | [...] | | + +---------+ + + | [facility] | | | | [...] | | + +---------+ + + | [facility] | | | | [...] | | | | REPORT FOR | oJse Carlos CHANDRA, | | | | | [...] | | navigated a #5.5 Citizen [place] | | | | | | Ozzy [...] Performing | Address | City/State/[facility] | Phone Number | | Organization | | | | + +---------+ + + | [facility] DE[facility] | | | | [...] | | + +---------+ + + | [facility] | | | | [...] | | + +---------+ + + | [facility] OF | | | | [...] | | | | a#5.5 Citizen [place] sheath was | | | | | | secured into place. In | | | | | | a similar fashion, | | | | | | a#7.0 Citizen [place] sheath was | | | | | [...] | | | The #7 Citizen [place] Brite | | | | | | [...] | | + +---------+ + + | [facility] | | | | [...] | | + +---------+ + + | [facility] DE[facility]MENT OF | | | | | RADIOLOGY | | | | + +---------+ + + documented in this encounter Visit Diagnoses Not on filedocumented in this encounter
--- OUTSIDE RECORDS SUMMARY | ~2019-12-02 | XMS | Encounter Summary ---
Demographics + + + | Address | [address] | | | [place] [address] | + + + | Home Phone [...] [place], [place] | | | | | [address] | | + + + + + | Ellie Vang | ECON | Unknown | | + + + + + Care Team Providers + +------+ + | Care Nursing Specialist Name | Role | Phone | [...] | | 2012 | | PR[address]CE [facility] | [address] [facility] | ventral hernia; | | | | Rd [facility] | [facility] [address] | possible bowel | | | | Hospital Admitting | [place], [place] | resection; | | | | Desk Located on the | [address] | | | | | 9th floor | [phone] | | | | | [place], [place] | | | | | | [address] | | | +--------+---------+ + + + [...] yuriy tral hernia. She was transferred from [place] for surgical evaluation of possible incarcer ated [...] yuriy tral hernia. She was transferred from [place] for surgical evaluation of possible incarcer ated [...] keeping you from eating and drinking, Call [phone]. It is important to stay hydrated! If [...] taking narcotic that contain Tylenol (acetaminophen) Example: [place], Lortab, Vicodin, hydrocodone/APAP, Percocet, Tylenol #3 PAIN MEDICATIONS are ONLY REFILLED during CLINIC APPOINTMENTS. Please call [phone] to schedule an appointment. Your Follow-Up Plan Follow up with ROBIN MEJIA in 2 weeks. Contact information: [address] [facility] [address] Vitals on discharge: Ht 154.9 cm (5' [...] might be different f rom the original. [facility] DEPARTMENT OF [...] without erythema and no infecti on noted. [place] intact : good urine output and Patient [...] clinic - [place] [phone] pager number [place] [phone] [facility] [address] Aminta Goodwin Md - 11/11/2012 7:40 AM PDT [facility] DEPARTMENT OF SURGERY EMERGENCY GENERAL SURGERY Division of Trauma and Critical Care Attending Physician: Andie Brian MD Progress Note Note Date: 11/11/2012 Admission Date: 11/06/2012 DYLAN ROMERO, [id number] Hospital Day #5 INTERVAL EVENTS none acute [...] mg, Rectal, DAILY PRN, Aminta Wilson MD fzquijwtrn-jzeavpbsjfmvn-orcwesll (aka FIORICET) 50-325-40 mg 1 Tab, 1 [...] Jayne Ponce MD, 1 mg at 11/10/12801 iuyoyeltpn-atxrkopklcjen-alpfrdkm (aka FIORICET) 50-325-40 mg 1 Tab, 1 [...] in preservative free NaCl 0.9% 50 mL EMERY WHEEL WORKER infusion, , Intravenous, KIESHA NUOUS, Aracely Flores [...] diet -add bowel regimen Acute pain -HM EMERY WHEEL WORKER, tylenol -convert to oral pain medication [...] Fluids: LR 125ml/hr Feeding: NPO Analgesia: Dilaudid EMERY WHEEL WORKER Sedation: not indicated Thromboprophylaxis: enoxaparin Head [...] Ponce MD, 1 mg at 11/09/12 0855 sdblnjmwae-wnyuidaznljqy-iizscats (aka FIORICET) 50-325-40 mg 1 Tab, 1 [...] in preservative free NaCl 0.9% 50 mL EMERY WHEEL WORKER infusion, , Intravenous, KIESHA NUOUS, Aracely Flores DO, 0.3 mg at 11/09/12 0853 insulin lispro (aka HUMALOG) injection, , Subcutaneous, MEALS and HS, Kaleb Walker, KALYAN ketorolac (aka TORADOL) injection 30 mg, 30 mg, Intravenous, Q6H PRN, Dione Grimse MD, 30 mg at 11/08/12 1024 lactated [...] 2 Packet, 2 Packet, Oral, ONCE, Aminta Wilsno MD potassium chloride IV 40 mEq, 40 [...] drainage <30ml for 24hrs Acute pain -HM EMERY WHEEL WORKER, tylenol Diabetes: -insulin gtt not started [...] Fluids: LR 125ml/hr Feeding: NPO Analgesia: Dilaudid EMERY WHEEL WORKER Sedation: not indicated Thromboprophylaxis: enoxaparin Head of bed: > 30 Ulcer prophylaxis: pepcid Glycemic control: adequate Activity/PT/OT: Ongoing Yogurt: ABX on Probiotics:yes AMINTA WILSON MD General Surgery, R1 aleb Walker S, N P - 11/08/2012 8:49 AM PDT [facility] DEPARTMENT OF SURGERY EMERGENCY GENERAL SURGERY Division of Trauma and Critical Care Attending Physician: Andie Brian MD Progress Note Note Date: 11/08/2012 Admission Date: 11/06/2012 DYLAN ROMERO, [id number] Hospital Day #2 INTERVAL EVENTS NO SUBJECTIVE Pain well controlled; has headache attributed to dilaudid EMERY WHEEL WORKER Tylenol did not help. Flatus: YES [...] trials today. -DC ruiz Acute pain -HM EMERY WHEEL WORKER, tylenol Diabetes: -insulin gtt not started [...] Fluids: LR 125ml/hr Feeding: NPO Analgesia: Dilaudid EMERY WHEEL WORKER Sedation: not indicated Thromboprophylaxis: enoxaparin Head of bed: > 30 Ulcer prophylaxis: pepcid Glycemic control: adequate Activity/PT/OT: Ongoing Yogurt: ABX on Probiotics: No KALEB WALKER NP [facility] [address] [place] [facility] elvin Stephens MD - 11/07/2012 9:51 PM [...] 7.33* PCO2 49* PO2 113* HCO3 25 DMRII2KRD 26 P8PWTMLF 98.3* A3IIEMQKI -- FIO2 60 ABGEXCESS -0.9 Assessment, Medical Decision Making and Plan 1. Incarcerated hernia, now s/p repair and panniculectomy -Binder, pain control, minimize nausea and coughing PRN. -NG clamping trials today. 2. Acute pain -HM EMERY WHEEL WORKER, tylenol 3. Diabetes: -insulin gtt 4. [...] Dione Grimes MD R-2, General Surgery Pager: [phone] [facility] [place] Department of Surgery Trauma ICU Team Pager (24hrs/day): [phone] I was present with the resident during the history and exam. I discussed the case with the resident and agree with the findings and plan as documented in the resident s note. KELVIN STEPHENS MD [facility] [address] [facility] [place] [address] [id number] Onur Graves MD - 11/07/2012 2:37 AM [...] in preservative free NaCl 0.9% 50 mL EMERY WHEEL WORKER infusion Intravenous CON TINUOUS Aracely Flores, [...] POD#1 s/p primary repair. 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 pharmacy retail support specialist and prn tylenol, continue prozac and zyprexa [...] F: probable remain NPO today A: dilaudid pharmacy retail support specialist, prn tylenol S: prn benzos as she is at home T: will start prophylactic lovenox today H: HOB >30 degrees U: pepcid G: insulin gtt ONUR ALLEN MD, PGY3 [place] [address] [facility] [id number] [place] [address] Onelia Shrestha MD - 11/06/2012 8:41 AM PDT [facility] DEPARTMENT OF SURGERY Division of Trauma and Critical Care Emergency General Surgery / Acute Care Surgery Attending Physician: Andie Brian MD Note Date: 11/06/2012 Admission Date: 11/06/2012 DYLAN ROMERO, [id number] Hospital Day #0 OVERNIGHT EVENTS: anxious SUBJECTIVE: [...] wwp LABS: reviewed and are available in [facility] (if new data) IMAGING: VASCULAR: IMPRESSION: [...] [place] | | | | | | [address] | | | | | | [phone] | | | | | | | [...] Mae | | | | | | [place] | | | | + + + + + + + + | Specimen | + + | | + + + +---------+ + + | Performing | Address | City/State/Zipcode | Phone Number | | Organization | | | | + +---------+ + + | [facility] DEPARTMENT OF | | [...] (H) | 60 - 99 mg/dL | [facility] - | | | [...] - [place] | [address] | [place], [place] | | | [place] POINT OF CARE | [address] | [address] | | | TESTS | | | [...] + + + | N[facility] AMES | [address] | [place], [place] | | | JUSTINE DAWN OF [facility] | [address] | [address] | | | TESTS | | | [...] + | [facility] | [address] [facility] | [place] [address] | | | SERVICES, CORE | CLARENCE [...] | | | LABORATORY | | | PERUVIAN | | | SERVICES, | | | [...] | + + + + + | [facility] | [address] | [place] [address] | | | SERVICES, CORE | PARK [...] | + + + + + | [facility] | [address] | [place] [address] | | | SERVICES, CORE | PARK [...] (H) | 60 - 99 mg/dL | [facility] - | | | [...] AMES | [address] | [place], [place] | | | JUSTINE DAWN OF JAKY | [facility] | [address] | | | TESTS | | | [...] [place] | [address] | [place], [place] | | | JUSTINE DAWN OF CARE | [address] | [address] | | | TESTS | | | [...] (H) | 60 - 99 mg/dL | [facility] - | | | [...] [facility] | [address] | [place], [place] | | | JUSTINE DAWN OF JAKY | [address] | [address] | | | TESTS | | | [...] AMES | [address] | [place], [place] | | | JUSTINE DAWN OF JAKY | [facility] | [address] | | | TESTS | | | [...] [place] | [address] | [place], [place] | | | [place] POINT OF [facility] | [facility] | [address] | | | TESTS | | | [...] [facility] | [address] | [place] [address] | | | SERVICES, CORE | PARK [...] | | | LABORATORY | | | PERUVIAN | | | SERVICES, | | | [...] [facility] | [address] | [place] [address] | | | SERVICES, CORE | CLARENCE [...] [facility] | [address] | [place] [address] | | | LYDIA RANGEL | CLARENCE [...] [place] | [address] | [place], [place] | | | [place] POINT OF CARE | [address] | [address] | | | TESTS | | | [...] AMES | [address] | [place], [place] | | | [place] POINT OF CARE | [address] | [address] | | | TESTS | | | [...] MARQUAM | [address] | [place], [place] | | | JUSTINE DAWN OF JAKY | [address] | [address] | | | TESTS | | | [...] KWAKU | [address] | [place], [place] | | | JUSTINE DAWN OF CARE | [facility] | [address] | | | TESTS | | | [...] AMES | [address] | [place], [place] | | | JUSTINE DAWN OF JAKY | [facility] | [address] | | | TESTS | | | [...] + | [facility] | [address] | [place] [address] | | | SERVICES, CORE | CLARENCE [...] | | | LABORATORY | | | PERUVIAN | | | SERVICES, | | | [...] the MDRD equation recommended by the | [facility] | | National Kidney [...] | + + + + + | [facility] | [address] | [place] [address] | | | LYDIA RANGEL | CLARENCE [...] | + + + + + | [facility] | [address] | [place] [address] | | | SERVICES, CORE | CLARENCE [...] AMES | [address] | [place], [place] | | | JUSTINE DAWN OF JAKY | [address] | [address] | | | TESTS | | | [...] MARQUAM | [address] | [place] | | | JUSTINE DAWN OF JAKY | [address] | [address] | | | TESTS | | | [...] NKECHI AMES | [address] | [place], [place] | | | JUSTINE DAWN OF CARE | [address] | [address] | | | TESTS | | | [...] | | | Final CULTURE | | [place] | | | | RESULT:>100,000 cfu/ml | [...] + | [facility] | [address] | [place] [address] | | | [place] | | | [...] + + | [facility] | [address] | [place] [address] | | | SERVICES, CORE | PARK [...] [facility] | [address] | [place] [address] | | | CLAIRE, LYDIA | CLARENCE [...] AMES | [address] | [place], [place] | | | L[place]PE[place] LUND OF [facility] | [address] | [address] | | | TESTS | | | [...] | | | LABORATORY | | | PERUVIAN | | | SERVICES, | | | [...] [facility] | [address] | [place] [address] | | | SERVICES, CORE | CLARENCE [...] [facility] | [address] | [place] [address] | | | SERVICES, CORE | CLARENCE [...] [facility] | [address] | [place] [address] | | | SERVICES, CORE | PARK [...] [place] | [address] | [place], [place] | | | JUSTINE DAWN OF JAKY | [facility] | [address] | | | TESTS | | | [...] AMES | [address] | [place], [place] | | | JUSTINE DAWN OF CARE | [address] | [address] | | | TESTS | | | [...] MAR[place] | [address] | [place], [place] | | | JUSTINE DAWN OF CARE | [address] | [address] | | | TESTS | | | [...] [facility] | [address] | [place] [address] | | | SERVICES, CORE | PARK [...] [facility] | [address] | [place] [address] | | | SERVICES, CORE | PARK [...] | | | LABORATORY | | | PERUVIAN | | | SERVICES, | | | [...] [facility] | [address] | [place] [address] | | | SERVICES, CORE | CLARENCE [...] [place] | [address] | [place], [place] | | | L[place]PEZ POINT OF CARE | [address] | [address] | | | TESTS | | | [...] KWAKU | [address] | [place], [place] | | | JUSTINE DAWN OF CARE | [address] | [address] | | | TESTS | | | [...] AMES | [address] | [place], [place] | | | JUSTINE DAWN OF JAKY | [address] | [address] | | | TESTS | | | [...] | + + + + + | [facility] | [address] | [place] [address] | | | SERVICES, CORE | PARK [...] [facility] | [address] | [place] [address] | | | SERVICES, CORE | CLARENCE [...] | | | LABORATORY | | | PERUVIAN | | | SERVICES, | | | [...] | + + + + + | [facility] | [address] | [place] [address] | | | SERVICES, CORE | [address] | | | + + + + + X-RAY PORTABLE CHEST 1 VIEW (11/06/2012 4:46 PM PDT) + + + + + + | Component | Value | Ref Range | Performed | Pathologist | | | | | At | Signature | + + + + + + | X-RAY | STUDY: MN CHEST 1 VIEW | | | | | PORTABLE | 11/06/12 16:46:00 | | | | | CHEST 1 | INDICATION: Right upper | | | | | VIEW | lobe opacity. | | | | | | COMPARISON: Earlier same | | | | | | day a STUDY: MN CHEST 1 | | | | | [...] + + + | X-RAY | STUDY: MN CHEST 1 VIEW | | | | [...] [facility] | [address] | [place] [address] | | | LYDIA RANGEL | CLARENCE [...] | | | LABORATORY | | | PERUVIAN | | | SERVICES, | | | [...] the MDRD equation recommended by the | [facility] | | National Kidney [...] [facility] | [address] | [place] [address] | | | SERVICES, CORE | CLARENCE [...] | + + + + + | [facility] | [address] | [place] [address] | | | SERVICES, CORE | CLARENCE [...] (H) | 60 - 99 mg/dL | [facility] - | | | [...] AMES | [address] | [place], [place] | | | JUSTINE DAWN OF JAKY | [address] | [address] | | | TESTS | | | [...] AMES | [address] | [place], [place] | | | L[place]PE[place] POINT OF CARE | [address] | [address] | | | TESTS | | | [...] [facility] | [address] | [place], [place] | | | L[place]PE[place] POINT OF CARE | [address] | [address] | | | TESTS | | | [...] [facility] | [address] | [place] | | | JUSTINE DAWN OF CARE | [address] | [address] | | | TESTS | | | [...] AMES | [address] | [place] | | | L[place]PEZ POINT OF CARE | [address] | [address] | | | TESTS | | | [...] [facility] | [address] | [place] | | | JUSTINE DAWN OF CARE | [address] | [address] | | | TESTS | | | [...] [place] | [address] | [place] | | | JUSTINE DAWN OF CARE | [address] | [address] | | | TESTS | | | [...] AMES | [address] | [place], [place] | | | L[place]PEZ POINT OF CARE | [address] | [address] | | | TESTS | | | [...] + + | [facility] | [address] | [place], [place] | | | JUSTINE DAWN OF CARE | [address] | [address] | | | TESTS | | | [...] [place] | [address] | [place], [place] | | | L[place]PEZ POINT OF CARE | [address] | [address] | | | TESTS | | | [...] AMES | [address] | [place], [place] | | | JUSTINE DAWN OF JAKY | [address] | [address] | | | TESTS | | | [...] | + + + + + | [facility] | [address] | [place] [address] | | | CLAIRE | CLARENCE BONNER [...] (H) | 60 - 99 mg/dL | [facility] - | | | [...] [facility] | [address] | [place], [place] | | | L[place] POINT OF CARE | [address] | [address] | | | TESTS | | | [...] | + + + + + | [facility] | [address] | [place] [address] | | | SERVICES, | [address] [...] [facility] | [address] | [place] [address] | | | SERVICES, | [address] [...] | + + + + + | [facility] | [address] | [place] [address] | | | SERVICES, CORE | CLARENCE [...] [facility] | [address] | [place] [address] | | | SERVICES, CORE | PARK [...] [facility] | [address] | [place] [address] | | | SERVICES, CORE | PARK [...] [facility] | [address] | [place] [address] | | | SERVICES, CORE | PARK [...] | | | LABORATORY | | | PERUVIAN | | | SERVICES, | | | [...] the MDRD equation recommended by the | [facility] | | National Kidney [...] | + + + + + | [facility] | [address] | [place] [address] | | | SERVICES, CORE | PARK [...] view image for the detailed interpretation from [employer] results. | CARDIOLOGY | + + + + + + + + | Performing | Address | City/State/Zipcode | Phone Number | | Organization | | | | + + + + + | [facility] | [address] | [place], [place] | | | CARDIOLOGY | [facility] | [address] | | + + + + + [...] [facility] | [address] | [place] [address] | | | SERVICES, CORE | CLARENCE [...] [facility] | [address] | [place] [address] | | | SERVICES, CORE | [address] | | | + + + + + documented in this encounter Visit Diagnoses + + | Diagnosis | + + | Incarcerated ventral hernia Ventral hernia, unspecified, with obstruction | + + documented in this encounter
--- OUTSIDE RECORDS SUMMARY | ~2019-12-02 | XMS | Encounter Summary ---
Demographics + + + | Address | [address] | | | [place] [address] | + + + | Home Phone [...] + | Katalina Padilla | ECON | [address] | | | | | [place], [place] | | | | | [address] | | + + + + + | Ellie Vang | ECON | Unknown | | + + + + + Care Team Providers + +------+ + | Care Director Of Gift Planning Name | Role | Phone | [...] [facility] [address] | MD [address] [facility] | | | | | [address] | Ryan Lesly | | | | | Mailcode: Lillie | [place], [place] | | | | | [facility] and | [address] | | | | | [facility] | [phone] | | | | | [place], [place] | | | | | | [address] | | | | | | [phone] | | | +--------+ + + + [...] Flannery | | | | | | [place] | | | | | | [address] | | | | | | [phone] | | | | | | | | +--------+---------+ + + + documented as of this encounter Visit Diagnoses Not on filedocumented in this encounter"
--- OUTSIDE RECORDS SUMMARY | ~2019-12-02 | XMS | Encounter Summary ---
Demographics + + + | Address | [address] | | | [place] [address] | + + + | Home Phone [...] [place], [place] | | | | | [address] | | + + + + + | Ellie Vang | ECON | Unknown | | + + + + + Care Team Providers + +------+ + | Care Capacitor Pack Press Operator Name | Role | Phone [...] | | | | | | [place], [place] | | | | | | [address] | | | | | | [phone] | | | | | | | | +--------+---------+ + + + documented as of this encounter Visit Diagnoses Not on filedocumented in this encounter"
--- OUTSIDE RECORDS SUMMARY | ~2019-12-02 | XMS | Encounter Summary ---
Demographics + + + | Address | [address] | | | [place] [address] | + + + | Home Phone [...] [place], [place] | | | | | [address] | | + + + + + | Ellie Vang | ECON | Unknown | | + + + + + Care Team Providers + +------+ + | Care Videogame Designer Name | Role | Phone | + +------+ + | Fadi Goodrich DO | PCP | | + +------+ + Encounter Details +--------+ + + + + | Date | Type | Department | Care Team | Description | +--------+ + + + + | 06/09/ | Abstract | Cardiology | Randell Franks, | | | 2015 | | Preventive at [facility] | MD [address] | | | | | [address] | [facility] [place] | | | | | Mailcode: CH9A | [address] | | | | | [facility] | [phone] | | | | | and Healing, | | | | | | [address] | | | | | | [facility] [place] | | | | | | [address] | | | | | | [phone] | | | +--------+ + + + [...] | | 2019 | Visit | | [address] | | | | | | [place], [place] | | | | | | [address] | | | | | | [phone] | | | | | | | | +--------+---------+ + + + documented as of this encounter Visit Diagnoses Not on filedocumented in this encounter"
--- OUTSIDE RECORDS SUMMARY | ~2019-12-02 | XMS | Clinical Summary ---
Demographics + + + | Address | [address] | | | [place] [address] | + + + | Home Phone [...] Organization | [facility] | | | and [...] Providers + +------+ + | Care Drug Abuse Technician Name | Role | Phone | [...] 0 | | | Activ | | Voyhxwt-Gimbapdfx-Fp | mouth 2 times daily. | | [...] | + + + +---------+------+------+-------+ | thyroid (SHIPYARD PAINTER | SHIPYARD PAINTER Thyroid 30 mg | | 0 | [...] 0 | | | Activ | | (MAXALT-CUSTOMER SERVICE TECHNICIAN) 5 mg | as needed for | [...] qd x | | 30 October 2015 [facility] Assessment & Plan: Hgb appears to run [...] obesityPickwickian syndrome | | Recent admission to [facility] for 100lb | | weight gain- DC on diuresis on 03/06/2016- she feel improvedShe | | was on Metolazone and Torsemide prior to hospitalization- both | | have better bioavailability than lasix in gut edema but she | | retained 100lbs - how ever she is currently on only Torsemide | | 100mg Q12hrs started in [place] and her weight been stable | | sinceShyesenia has no other complaints.She is pending to see | | NephrologistEcho 02/16/2016([facility])- Normal LV systolic | | [...] + + + | Overview: 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 She has an appt with nephrology at | | [facility] on 03/17. Weight now 200kg (440lb, down [...] Defer Metolazone to her | | outpatient Contract Lead or Furniture Painter- Will continue KCL | | supplementation at 60meq QID despite the spironolactone as she | | remains on the low side- Encourage daily weights at home with a | | log; she should contact her PCP, Contract Lead or Furniture Painter for | | a 10lb weight gain [...] in the [facility] bariatric program. | | She has lost [...] tolerating well in the | | hospital-- [place] arranging for BiPAP upon d/c home [facility] | | areaOverview: Cannot tolerate CPAP [...] RICHEY | | | | | | [place] [address] | | | | | | [phone] | | | | | | | [...] | [employer] | [employer] | [id number] | 10/28/19 | [phone] | | [employer] | | MEDICAID HMO | HEALTH | | 19-Pre | 1 | | id | | | MDCD | | sent | | | | | | [place]MO [place] | | | | | | + +--------+ +--------+ +---------+--------+ | [employer] | [employer] | [id number] | | [phone] | | [employer] | | MEDICAID HMO [...] m[place] | | | 3 (Home) | [phone] | + +--------+ +--------+ + + | Elzbieta Cristina | Person | Self | [birth year] | [address] | | | al/Fam | | 1974 | [phone] | [place], [place] | | | [place] | | | 3 (Home) | [phone] | + +--------+ +--------+ + + Advance Directives + + + + + | Type | Date Recorded | Patient | Explanation | | | | Ceramic Coater Machine | | + + + + + | Power of | | | | | [employer]ot [place] | | | | + + + + + | Advance | | | | | Directive | | | | + + + + +
--- OUTSIDE RECORDS SUMMARY | ~2019-12-02 | XMS | Encounter Summary ---
Demographics + + + | Address | [address] | | | [place] [address] | + + + | Home Phone [...] [place], [place] | | | | | [address] | | + + + + + | Ellie Vang | ECON | Unknown | | + + + + + Care Team Providers + +------+ + | Care Pad Cutter Name | Role | Phone | [...] | | 2020 | | Preventive at [facility] | MD [address] | | | | | [address] | [place], [place] | | | | | Mailcode: CH9A | [address] | | | | | [facility] | [phone] | | | | | and [facility], | | | | | | Building [address] | | | | | | [facility] [place] | | | | | | [address] | | | | | | [phone] | | | +--------+ + + + [...] [place] | | | | | | [address] | | | | | | [phone] | | | | | | | | +--------+---------+ + + + documented as of this encounter Visit Diagnoses Not on filedocumented in this encounter"
--- OUTSIDE RECORDS SUMMARY | ~2019-12-02 | XMS | Encounter Summary ---
Demographics + + + | Address | [address] | | | [place] [address] | + + + | Home Phone [...] [place], [place] | | | | | [address] | | + + + + + | Ellie Vang | ECON | Unknown | | + + + + + Care Team Providers + +------+ + | Care Managing Partner [employer] Name | Role | Phone | + +------+ + | Faid Goodrich DO | PCP | | + +------+ + Encounter Details +--------+ + + + + | Date | Type | Department | Care Team | Description | +--------+ + + + + | 02/24/ | Abstract | Cardiology | Randell Franks, | | | 2015 | | Preventive at [facility] | MD [address] | | | | | [address] | [facility] [place] | | | | | Mailcode: CH9A | [address] | | | | | [facility] | [phone] | | | | | and Healing, | | | | | | [address] | | | | | | [facility] [place] | | | | | | [address] | | | | | | [phone] | | | +--------+ + + + [...] | | 2019 | Visit | | [address] | | | | | | [place], [place] | | | | | | [address] | | | | | | [phone] | | | | | | | | +--------+---------+ + + + documented as of this encounter Visit Diagnoses Not on filedocumented in this encounter"
--- OUTSIDE RECORDS SUMMARY | ~2019-12-02 | XMS | Encounter Summary ---
Demographics + + + | Address | [address] | | | [place] [address] | + + + | Home Phone [...] [place], [place] | | | | | [address] | | + + + + + | Ellie Vang | ECON | Unknown | | + + + + + Care Team Providers + +------+ + | Care Instrument Processing Tech Name | Role | Phone | [...] Lesly | | | | | Mailcode: [place] | [place], [place] | | | | | [facility] Health and | [address] | | | | | [facility] 2 | [phone] | | | | | [place], [place] | | | | | | [address] | | | | | | [phone] | | | +--------+ + + + [...] | | | | | | [place] | | | | | | [address] | | | | | | [phone] | | | | | | | | +--------+---------+ + + + documented as of this encounter Visit Diagnoses Not on filedocumented in this encounter"
--- OUTSIDE RECORDS SUMMARY | ~2019-12-02 | XMS | Encounter Summary ---
Demographics + + + | Address | [address] | | | [place] [address] | + + + | Home Phone [...] [place], [place] | | | | | [address] | | + + + + + | Ellie Vang | ECON | Unknown | | + + + + + Care Team Providers + +------+ + | Care Export Manager Name | Role | Phone | [...] 2014 | | Preventive at [facility] | MD [address] | | | | | [address] | [facility] [place] | | | | | Mailcode: CH9A | [address] | | | | | [facility] | [phone] | | | | | and Healing, | | | | | | [address] | | | | | | [facility] [place] | | | | | | [address] | | | | | | [phone] | | | +--------+ + + + [...] | | 2019 | Visit | | [address] | | | | | | [place], [place] | | | | | | [address] | | | | | | [phone] | | | | | | | | +--------+---------+ + + + documented as of this encounter Visit Diagnoses Not on filedocumented in this encounter"
--- OUTSIDE RECORDS SUMMARY | ~2019-12-02 | XMS | Encounter Summary ---
Demographics + + + | Address | [address] | | | [place] [address] | + + + | Home Phone [...] | Organization | [facility] | | [...] Providers + +------+ + | Care Gear Design Engineer Name | Role | Phone | + +------+ + PCP | Unavailable | + +------+ + Encounter Details +--------+ + + + + | Date | Type | Department | Care Team | Description | +--------+ + + + + | 03/31/ | Orders Only | [facility] | Dharmesh Escobar, | | | 2016 | | NEPHROLOGY [place] | CLIN [address]ST [address] | | | | | [address] | [address] | | | | | [address] [place], [place] | [place] | | | | | [address] | [address] | | | | | [phone] | [phone] | | | | | | | [...] F | | | | | | [place] [address] | | | | | | [phone] | | | | | | | [...] | | | LAB | | | [facility] | | | | | + +---------+ [...]
--- OUTSIDE RECORDS SUMMARY | ~2019-12-02 | XMS | Encounter Summary ---
Demographics + + + | Address | [address] | | | [place] [address] | [...] Organization | [facility] [...] Team Providers + +------+ + | Care Collet Gluer Name | Role | Phone | + +------+ + PCP | Unavailable | + +------+ + Encounter Details +--------+ + + + + | Date | Type | Department | Care Team | Description | +--------+ + + + + | 10/07/ | Orders Only | [facility] | Dharmesh Escobar, | | | 2017 | | NEPHROLOGY [place] | DIVISION HUMAN RESOURCES MANAGER [address] | | | | | [address] | [address] | | | | | [address] [place], [place] | [place] | | | | | [address] | [address] | | | | | [phone] | [phone] | | | | | | | [...] F | | | | | | [place] [address] | | | | | | [phone] | | | | | | | [...] | | | LAB | | | SRI LANKAN | | | | | + +---------+ [...]
--- OUTSIDE RECORDS SUMMARY | ~2019-12-02 | XMS | Encounter Summary ---
Demographics + + + | Address | [address] | | | [place] [address] | + + + | Home Phone [...] Organization | [facility] | | | and [...] Providers + +------+ + | Care Agricultural Specialist Name | Role | Phone | [...] + + | 06/27/ | Telephone | [facility] | Dharmesh Fierro, | Follow-up(Procedure) | | 2019 | | INTERVENTIONAL | RN | | | | | RADIOLOGY [address] | | | | | | [address] | | | | | | [facility] [place] | | | | | | [address] | | | | | | [phone] | | | +--------+ + + + [...] RICHEY | | | | | | [place] [address] | | | | | | [phone] | | | | | | | | +--------+---------+ + + + documented as of this encounter Visit Diagnoses Not on filedocumented in this encounter"
--- OUTSIDE RECORDS SUMMARY | ~2019-12-02 | XMS | Encounter Summary ---
Demographics + + + | Address | [address] | | | [place] [address] | + + + | Home Phone [...] [place], [place] | | | | | [address] | | + + + + + | Ellie Vang | ECON | Unknown | | + + + + + Care Team Providers + +------+ + | Care Internal Combustion Engine Inspector Name | Role | Phone | + +------+ + | Fadi Goodrich DO | PCP | | + +------+ + Encounter Details +--------+ + + + + | Date | Type | Department | Care Team | Description | +--------+ + + + + | 02/15/ | Abstract | Digestive Health | [facility] Brian, | | | 2012 | | Center at [facility] [address] | MD [address] | | | | | [address] | [facility] | | | | | Mailcode: [place] | [place], [place] | | | | | [facility] Health and | [address] | | | | | [facility], [facility] 2 | [phone] | | | | | [place], [place] | | | | | | [address] | | | | | | [phone] | | | +--------+ + + + [...] [address] | | | | | | [place], [place] | | | | | | [address] | | | | | | [phone] | | | | | | | | +--------+---------+ + + + documented as of this encounter Visit Diagnoses Not on filedocumented in this encounter"
--- OUTSIDE RECORDS SUMMARY | ~2019-12-02 | XMS | Encounter Summary ---
Demographics + + + | Address | [address] | | | [place] [address] | + + + | Home Phone [...] [place], [place] | | | | | [address] | | + + + + + | Ellie Vang | ECON | Unknown | | + + + + + Care Team Providers + +------+ + | Care Boat Hop Name | Role | Phone | + [...] [place] | | | | | | [address] | | | | | | [phone] | | | | | | | | +--------+---------+ + + + documented as of this encounter Visit Diagnoses Not on filedocumented in this encounter"
--- OUTSIDE RECORDS SUMMARY | ~2019-12-02 | XMS | Encounter Summary ---
Demographics + + + | Address | [address] | | | [place] [address] | + + + | Home Phone [...] [place], [place] | | | | | [address] | | + + + + + | Ellie Vang | ECON | Unknown | | + + + + + Care Team Providers + +------+ + | Care Employee Relations Advisor Name | Role | Phone | [...] | Pain | Diagnoses | [place], | Supervisor [facility] [facility] | | | | Management | Morbid | Shereen Murcia ACNP | [facility] [address] | | | | | obesity with | [address] | | | | | BMI of [address] | Mailcode: | | | | | and over, | [employer] | [address] | | | | | adult ([facility]) | [address] | for Health | | | | | Procedures | Phone: | and Healing, | | | | | CONSULT TO | [phone] | Building [address], | | | | | PAIN | Fax: | 15th Floor | | | | | MANAGEMENT | [phone] | [place], [place] | | | | | [place] | | [address] | | | | | PSYCHIATRIC | | Phone: | | | | | DIAGNOSTIC | | [phone] | | | | | EVAL, NO MED | | Fax: | | | | | [facility] [place] | | [phone] | | | | | PSYCH TSTNG | | | | | | | PSYCH/PHYS | | | +--------+---------+ + + + + Encounter Details +--------+---------+ + + + | Date | Type | Department | Care Team | Description | +--------+---------+ + + + | 10/02/ | Office | Pain Center at [facility] | Leslie Mistry, | Morbid obesity | | 2018 | Visit | [address] | PhD [address] | ([facility]); Bipolar | | | | Mailcode: 15P | Ryan Grace | affective disorder, | | | | [facility] | [place], [place] | remission status | | | | and Healing, | [address] | unspecified ([facility]); | | | | | [phone] | BMI 60.0-69.9, adult | | | | Floor [place], [place] | | ([facility]); Anxiety | | | | [address] | | | | | | [phone] | | | +--------+---------+ + + + [...] Name: Elzbieta Cristina : 1975 Medical Record: [id number] Age: 42 y.o. Weight today, per patient report: 305 lbs Weight on 09/11/17: 389, BMI 73.54 Identifying Information: Elzbieta Cristina is a 42 y.o. female who lives with her mother in [place], [place]. She was referred for psychological evaluation [...] of cereal with skim milk and a serbian yogurt L: white bread and cheese and [...] laundry. For enjoym ent the patient watches [employer] / [employer] with her girlfriend. She is socially active [...] time I spent was approximately 60 minutes xweg-ze-xupl with the patient and approxima tely 2 hours of kzc-vlgx-kj-face testing, interpreting and synthesizing results. Leslie Mistry, PhD Clinical Psychologist [facility] [address] [facility] and [facility], 15th [place] [address] [phone] signed by Leslie Mistry, PhD at 10/08/2017 12:26 PM PDTdocume nted in this encounter Plan of Treatment +--------+---------+ + + + | Date | Type | Specialty | Care Team | Description | +--------+---------+ + + + | 03/15/ | Office | Cardiology | Randell Franks, | | | 2019 | Visit | | [address] | | | | | | [place], [place] | | | | | | [address] | | | | | | [phone] | | | | | | | [...]
--- OUTSIDE RECORDS SUMMARY | ~2019-12-02 | XMS | Encounter Summary ---
Demographics + + + | Address | [address] | | | [place] [address] | + + + | Home Phone [...] [place], [place] | | | | | [address] | | + + + + + [...] 2014 | | Preventive at [facility] | [address] | ([place]); | | | | [address] | [place], [place] | Refill Request | | | | Mailcode: [facility] | [address] | | | | | [facility] | [phone] | | | | | and [place], | | | | | | [address] | | | | | | [place], [place] | | | | | | [address] | | | | | | [phone] | | | +--------+--------+ + + + [...] | | | | | | [place], [place] | | | | | | [address] | | | | | | [phone] | | | | | | | | +--------+---------+ + + + documented as of this encounter Visit Diagnoses Not on filedocumented in this encounter"
--- OUTSIDE RECORDS SUMMARY | 2019-12-02 12:06 | XMS ---
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 ROMERO Security Accounts Receivable Bookkeeper Events No recent Security Events currently on file CRITERIA MET - Group Notification - 6 ED Visits in 6 Months - [facility] - Has Care Guidelines - PDMP - [facility] - 2 Visits in 30 Days CARE PROVIDERS Eagle Nino Community Health Worker 07/03/2019-Current PHONE: [phone] JONES DAVISON Dentist: Electrical Engineering Technologist 05/23/2019-Current PHONE: [phone] Rob Tilley Distributor Of Directories/Survey Chief 03/27/2018-Current PHONE: [phone] CONCETTA UPTON Internal Medicine: Pulmonary Disease 08/23/2018-Current PHONE: Unknown Guidelines [facility] [place] Guidelines Date: 09/16/2019 Care Coordination: Receives mental health services with [facility].\T\nbsp; Please contact [facility] regarding mental health concerns. [facility] Office: [phone], [place] Office: [phone].\T\[facility]; [facility] Crisis: [phone]. Care History Medical/Surgical 09/14/2019 [facility] - PATIENT HAS AN APT WITH DR WEBBER 09/14/19 FOR FOLLOW UP TO RECENT POSTOPERATIVE COMPLICATION. - HERNIA SURGERY WAS DONE ON 08/19/[address] TIWARI AT [facility]. 06/27/2019 [facility] - PATIENT SELF DISCHARGED FROM [facility]-PCP IS NOW DR DAVISON AT [facility]. 06/27/2019 [facility] - PATIENT HAS AN APT WITH DR DAVISON ON 06/28/19 FOR FOLLOW UP AND ANOTHER APT WITH PCP FOR ER FOLLOW UP ON 07/06/19. - PLEASE REFER PATIENT TO THE WALK IN CLINIC FOR NON EMERGENT MEDICAL CONCERNS. E.D. V[facility] (12 MO.) [facility] 2 [facility] [place] [facility] T[facility] 14 NOTE: Visits indicate total known visits. ED/UCC VISIT TRACKING (12 MO.) 12/02/2019 12:02 [facility] TYPE: Emergency COMPLAINT: - STOMACH PAIN,BLOODY STOOL 11/13/2019 17:33 [facility] TYPE: Emergency COMPLAINT: - MULTIPLE COMPLAINTS DIAGNOSES: - Viral infection, unspecified - Cough - Other chcf (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 - Anxiety disorder, unspecified - Allergy status to other antibiotic agents status - Allergy status to penicillin - Migraine, unspecified, not intractable, without status migrai 09/12/2019 17:58 [facility] TYPE: Emergency COMPLAINT: - POST OP PAIN DIAGNOSES: - Allergy status to analgesic agent status - Unspecified abdominal pain - Allergy status to penicillin - Other long term care administrator (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 - Anxiety disorder, unspecified - Obesity, unspecified - Other postprocedural complications of skin and subcutaneous t - Allergy status to other drugs, medicaments and biological sub 09/08/2019 18:55 [facility] TYPE: Emergency COMPLAINT: - DIFFICULTY BREATHING DIAGNOSES: - Headache - Other [facility] (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 - Personal history of nicotine dependence - Shortness of breath 09/02/2019 21:22 [facility] TYPE: Emergency COMPLAINT: - ABDOMINAL PAIN 08/18/2019 13:47 [facility] TYPE: Emergency DIAGNOSES: 00[address]. amr . Morbid (severe) obesity due to excess calories . Ventral hernia without obstruction or gangrene . Unspecified abdominal hernia with obstruction, without gangre 06/25/2019 18:23 [facility] TYPE: Emergency COMPLAINT: - ABDOMINAL PAINY DIAGNOSES: - shelter (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 - Anxiety disorder, unspecified - Cellulitis of abdominal wall - Acute embolism and thrombosis of deep veins of right upper ex - Nicotine dependence, unspecified, uncomplicated - Migraine, unspecified, not intractable, without status migrai - Unspecified abdominal pain - Allergy status to other drugs, medicaments and biological sub - Other ch[facility] (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 - Allergy status to penicillin - Obesity, unspecified 06/19/2019 06:34 [facility] TYPE: Emergency COMPLAINT: - ABDOMINAL PAIN/VOMITING DIAGNOSES: - shelter (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 - Personal history [...] drugs, medicaments and biological sub - Other [facility] (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 06/01/2019 13:10 [facility] TYPE: Emergency COMPLAINT: - HEADACHE/VISION ISSUES DIAGNOSES: - Allergy status to penicillin - Anxiety disorder, unspecified - Obesity, unspecified - Migraine, unspecified, not intractable, without status migrai - Other [facility] (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 - Allergy status to other drugs, medicaments and biological sub - shelter (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 - Headache - termite exterminator (current) use of aspirin 05/23/2019 17:08 [facility] TYPE: Emergency COMPLAINT: - BLOOD CLOT IN ARM DIAGNOSES: - Anxiety disorder, unspecified - Acute embolism and thrombosis of deep veins of right upper ex - Allergy status to penicillin - Other long term care administrator (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 - Pain in right arm - shelter (current) use of aspirin - Allergy status to other drugs, medicaments and biological sub 05/20/2019 10:19 [facility] TYPE: Emergency COMPLAINT: - ABD PAIN, VOMITING DIAGNOSES: - Generalized abdominal pain - termite exterminator (current) use of aspirin - Allergy status to other drugs, medicaments and biological sub - Unspecified abdominal pain - Personal history of transient ischemic attack (TIA), and cere - Anxiety disorder, unspecified - Other long term care administrator (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 - Other chronic pain - Allergy status to penicillin 05/13/2019 17:18 [facility] TYPE: Emergency DIAGNOSES: 06714. A303 17005. Bariatric surgery status 61009. Ventral hernia without obstruction or gangrene 19429. Nausea with vomiting, unspecified . Unspecified abdominal pain . Nonspecific mesenteric lymphadenitis 05/10/2019 13:06 [facility] TYPE: Emergency COMPLAINT: - ABD PAIN DIAGNOSES: - Nausea with vomiting, unspecified - Allergy status to other drugs, medicaments and biological sub - Personal history of transient ischemic attack (TIA), and cere - Solitary pulmonary nodule - Other long term care administrator (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 - Anxiety disorder, unspecified - Allergy status to penicillin - Ventral hernia without obstruction or gangrene - shelter (current) use of aspirin - Unspecified abdominal pain - Diarrhea, unspecified 12/03/2018 11:51 [facility] [place] TYPE: Emergency DIAGNOSES: - Strain of unspecified muscle(s) and tendon(s) at lower leg le - RIGHT LEG PAIN DUE TO FALL INPATIENT VISIT TRACKING (12 MO.) 09/03/2019 02:24 [facility] TYPE: Medical Surgical COMPLAINT: - POST-OP HEMATOMA DIAGNOSES: - Body mass index (BMI) 50-59.9 , adult - Personal history of pulmonary embolism - termite exterminator (current) use of opiate analgesic - Other chronic pain - Allergy status to other drugs, medicaments and biological sub - Anxiety disorder, unspecified - Allergy status to other drugs, medicaments and biological sub - termite exterminator (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 - Bipolar disorder, unspecified - Personal history of other venous thrombosis and embolism - Anxiety disorder, unspecified - Other chronic pain - Other [facility] (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 - Postprocedural hematoma of a digestive system organ or struct - Other long term care administrator (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 - Personal history of other venous thrombosis and embolism - Bariatric surgery status - Essential (primary) hypertension - Personal history of transient ischemic attack (TIA), and cere - Obstructive sleep apnea (adult) (pediatric) - Personal history of pulmonary embolism - Migraine, unspecified, not intractable, without status migrai - Bipolar disorder, unspecified - shelter (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 - Acute posthemorrhagic [...] (severe) obesity due to excess calories - shelter (current) use of opiate analgesic - Bariatric surgery status - Hypokalemia - Hypokalemia 08/18/2019 13:47 [facility] TYPE: Surgery DIAGNOSES: . Unspecified abdominal hernia with obstruction, without gangre . Morbid (severe) obesity due to excess calories . Ventral hernia without obstruction or gangrene [email or web address]
== END 2019-12-02 17:35 | disposition home or self-care (01) ==
LOC: ED 12:01
DX: K59.00 Constipation, unspecified (principal); E87.6 Hypokalemia; G43.909 Migraine, unspecified, not intractable, without status migrainosus; F41.9 Anxiety disorder, unspecified; Z79.01 Long term (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; Z88.0 Allergy status to penicillin; Z88.1 Allergy status to other antibiotic agents; Z88.8 Allergy status to other drugs, medicaments and biological substances; Z79.899 Other long term (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
CPT/HCPCS: 74177; 80053; 81001; 83690; 83735; 84703; 85025; 85610; 86850; 86900; 86901; 96376; 99284-25; J2270; Q9967

== ENCOUNTER 2019-12-19 09:56 | Emergency (ER) | payer OTHER ==
[~2019-12-19] VITALS: Ht 147.3 cm; Wt 122.0 kg
--- OUTSIDE RECORDS SUMMARY | ~2019-12-19 | XMS | Encounter Summary ---
Demographics + + + | Address | [address] | | | [place] [address] | + + + | Home Phone [...] Author + + + | Author | [facility] | + + + | Organization | [facility] | + + + | Address | Unknown | + + + | Phone | Unavailable | + + + Support + + + + + | Name | Relationship | Address | Phone | + + + + + | Katalina Padilla | ECON | [address] | | | | | [place], [place] | | | | | [address] | | + + + + + | Ellie Vang | ECON | Unknown | | + + + + + Care Team Providers + +------+ + | Care Chain Maker Hand Name | Role | Phone | [...] 04/28/ | Refill | Digestive Health | Dannie Lemon Vinic[place], | Refill Request | | 2018 | | Center at [facility] [address] | MD [address] | | | | | [address] | [place], [place] | | | | | Mailcode: [place] | [address] | | | | | [facility] Health and | [phone] | | | | | [place] [address] | | | | | | [place], [place] | | | | | | [address] | | | | | | [phone] | | | +--------+--------+ + + + [...] as of this encounter Plan of Treatment +--------+---------+ + + + | Date | Type | Specialty | Care Team | Description | +--------+---------+ + + + | 03/15/ | Office | Cardiology | Randell Franks, | | | 2020 | Visit | | [address] | | | | | | [place], [place] | | | | | | [address] | | | | | | [phone] | | | | | | | | +--------+---------+ + + + documented as of this encounter Visit Diagnoses Not on filedocumented in this encounter"
--- OUTSIDE RECORDS SUMMARY | ~2019-12-19 | XMS | Encounter Summary ---
Demographics + + + | Address | [address] | | | [place] [address] | + + + | Home Phone | | + + + | Preferred Language | Unknown | + + + | Marital Status | | + + + | Congregation Affiliation | Unknown | + + + | Race | Unknown | + + + | Ethnic Group | Unknown | + + + Author + + + | Author | [facility] | | | and Jeffana | + + + | Organization | [facility] | | | and Jeffana | [...] Providers + +------+ + | Care Product Test Engineer Name | Role | Phone | + +------+ + | Jorje Hill | PCP | | + +------+ + Reason for Visit + + + | Reason | Comments | + + + | Medication Refill | | + + + Encounter Details +--------+--------+ + + + | Date | Type | Department | Care Team | Description | +--------+--------+ + + + | 08/17/ | Refill | [facility] | Sulema Altamirano | Medication Refill | | 2019 | | CARDIOLOGY SAIMA | [address] | | | | | [address] | [address] | | | | | [address] | [place] [address] | | | | | [place] | [phone] | | | | | [address] | | | | | | [phone] | | | +--------+--------+ + + + [...] Comments | + + +---------+ + | Not Currently | | | | + + +---------+ + [...] Description | +--------+---------+ + + + | 03/05/ | Office | Cardiology | Sulema Altamirano | | | 2020 | Visit | | [address] | | | | | | [address] | | | | | | [place] [address] | | | | | | [phone] | | | | | | | | +--------+---------+ + + + documented as of this encounter Visit Diagnoses Not on filedocumented in this encounter"
--- OUTSIDE RECORDS SUMMARY | ~2019-12-19 | XMS | Encounter Summary ---
Demographics + + + | Address | [address] | | | [place] [address] | + + + | Home Phone [...] + | Katalina Padilla | ECON | [address] | | | | | [place], [place] | | | | | [address] | | + + + + + | Ellie Vang | ECON | Unknown | | + + + + + Care Team Providers + +------+ + | Care Air Reduction Equipment Operator Name | Role | Phone | + +------+ + | Fadi Goodrich DO | PCP | | + +------+ + Encounter Details +--------+ + + + + | Date | Type | Department | Care Team | Description | +--------+ + + + + | 10/27/ | Abstract | Digestive Health | Clinic, Surgery | | | 2018 | | [facility] [address] | | | | | | [address] | | | | | | Mailcode: [place] | | | | | | [facility] and | | | | | | [facility] 2 | | | | | | [place], [place] | | | | | | [address] | | | | | | [phone] | | | +--------+ + + + [...] | | 2019 | Visit | | [address] | | | | | | [place], [place] | | | | | | [address] | | | | | | [phone] | | | | | | | | +--------+---------+ + + + documented as of this encounter Visit Diagnoses Not on filedocumented in this encounter"
--- OUTSIDE RECORDS SUMMARY | ~2019-12-19 | XMS | Encounter Summary ---
Demographics + + + | Address | [address] | | | [place] [address] | + + + | Home Phone [...] + | Katalina Padilla | ECON | [address] | | | | | [place], [place] | | | | | [address] | | + + + + + | Ellie Vang | ECON | Unknown | | + + + + + Care Team Providers + +------+ + | Care Treasurer Savings Bank Name | Role | Phone | + +------+ + | Fadi Goodrich DO | PCP | | + +------+ + Reason for Visit + + + | Reason | Comments | + + + | Bariatric Nutrition | | + + + Encounter Details +--------+---------+ + + + | Date | Type | Department | Care Team | Description | +--------+---------+ + + + | 11/06/ | Office | Digestive Health | | Morbid obesity (HCC) | | 2015 | Visit | Center at [facility] [address] | | (Primary Dx) | | | | [address] | | | | | | Mailcode: Center | | | | | | for Health and | | | | | | [facility], [facility] 2 | | | | | | [place], [place] | | | | | | [address] | | | | | | [phone] | | | +--------+---------+ + + + [...] + + + + | Weight | 173.8 kg (383 lb 3.2 | 11/06/2014 9:00 AM | | | | oz) | PDT | | + + + + + | Height | - | - | | + + + + + | Body Mass Index | 72.41 | 10/02/2014 11:03 AM | | | | | PDT | | + + + + + documented in this encounter Progress Notes Yuli Childs, RD - 11/06/2014 9:00 AM PDT Referring Provider: Fadi Goodrich DO [facility], Pre-Bariatric Surgery Class Pre-Surgery Class #1 prior to having Bariatric Surgery. Documented Time of Class: 2:00 until 3:00 (60 minutes [id number] with patient) OBJECTIVE: Height: Ht Readings from Last 1 Encounters: 10/02/14 1.549 m (5' 1") Ht Readings from Last 1 Encounters: 10/02/14 1.549 m (5' 1") Wt Readings from Last 2 Encounters: 11/06/14 173.818 kg (383 lb 3.2 oz) 10/02/14 175.587 kg (387 lb 1.6 oz) BMI: Body mass index is 72.44 kg/(m^2). Teaching Methods: PowerPoint and verbal presentation with additional written materials. Class content included: 1. Review of de la cruz points. -Eat within one hour of waking, then every 3 to 4 waking hours (usually 3 meals and 2-3 sna cks daily)Include protein at meals (2-3 ounces) and at snacks (~1 ounce). -Goal is 60-80grams of protein/day -At least 64 ounces of fluids throughout the day (no calories, caffeine, or carbonation) -Separate fluids from meals nothing to drink 30 minutes before, during, and [address] eating -Practice mindful eating eat slowly (30 minutes for meals) without distractions such as T V, computer, phone -Choose foods with < 14 grams of sugar and < 5 grams of fat per serving -30-60 minutes of physical activity most days -Taking vitamins and minerals every day 2. Mindful eating, emotional eating 3. Pre-surgery diet (plate method, label reading, keeping food logs) Assessment: Pt remained attentive throughout the class and/or participated by asking questi ons or sharing information. Yes Yuli Childs RD, [facility], LD Pager# [phone] documented in this enc ounter Plan of Treatment +--------+---------+ + + + | Date | Type | Specialty | Care Team | Description | +--------+---------+ + + + | 03/15/ | Office | Cardiology | Randell Franks, | | | 2019 | Visit | | [address] | | | | | | [facility] [place] | | | | | | [address] | | | | | | [phone] | | | | | | | | +--------+---------+ + + + documented as of this encounter Visit Diagnoses + + | Diagnosis | + + | Morbid obesity (HCC) - Primary Morbid obesity | + + documented in this encounter
--- OUTSIDE RECORDS SUMMARY | ~2019-12-19 | XMS | Encounter Summary ---
Demographics + + + | Address | [address] | | | [place] [address] | + + + | Home Phone | | + + + | Preferred Language | Unknown | + + + | Marital Status | Single | + + + | Moravian Affiliation | NON | + + + | Race | White | + + + | Ethnic Group | Not or | + + + Author + + + | Author | [facility] | + + + | Organization | [facility] | + + + | Address | Unknown | + + + | Phone | Unavailable | + + + Support + + + + + | Name | Relationship | Address | Phone | + + + + + | Katalina Padilla | ECON | [address] | | | | | [place], [place] | | | | | [address] | | + + + + + | Ellie Vang | ECON | Unknown | | + + + + + Care Team Providers + +------+ + | Care Professor Of Violin Name | Role | Phone | + [...] | | | without | [place] | [address] | | | | | mention of | | Phone: | | | | | obstruction | | [phone] | | | | | or gangrene | | Fax: | | | | | | | [phone] | +--------+--------+ + + + + Encounter Details +--------+---------+ + + + | Date | Type | Department | Care Team | Description | +--------+---------+ + + + | 12/03/ | Office | Trauma Emergency | Juventino Dunaway, | Morbid obesity (HCC) | | 2012 | Visit | General Surgery at | MD [address] | (Primary Dx); | | | | [facility] [address] | Hernia | | | [address] | [place], [place] | | | | | Physicians [place], | [address] | | | | | 2nd Floor | [phone] | | | | | [place], [place] | | | | | | [address] | | | | | | [phone] | | | +--------+---------+ + + + [...] fine, afebrile. Abdominal exam is completely benign. [place] are still in, And wound is healed. [place] removed. Drainage is serous, very slight sanguinous. No eviden ce of deep subcutaneous infection. Abdominal wall currently intact. Drain site OK. Assessment/Plan: Satisfactory course following primary repair of incarcerated umbilical he rnia. Pt. Wants to obtain care, including drain removal and diabetic care in [place], so I have referred her to her PCP. Otherwise, I will see her back in 2 weeks. Drain could be removed when it is down to 30 - 40 ml/day. I refilled her Lidocaine cream. I spent 40 minutes with this pt., 75% in counseling her. documented in this encounter Plan of Treatment +--------+---------+ + + + | Date | Type | Specialty | Care Team | Description | +--------+---------+ + + + | 03/15/ | Office | Cardiology | Randell Franks, | | | 2019 | Visit | | [address] | | | | | | [facility] [place] | | | | | | [address] | | | | | | [phone] | | | | | | | [...] | Procedure Note | + + | Yamil, Faculty - 02/17/2013 8:51 AM PDT | + [...]
--- OUTSIDE RECORDS SUMMARY | ~2019-12-19 | XMS | Encounter Summary ---
Demographics + + + | Address | [address] | | | [place] [address] | + + + | Home Phone [...] + + + | Author | [facility] | + + + | Organization | [facility] | + + + | Address | Unknown | + + + | Phone | Unavailable | + + + Support + + + + + | Name | Relationship | Address | Phone | + + + + + | Katalina Padilla | ECON | [address] | | | | | [place], [place] | | | | | [address] | | + + + + + | Ellie Vang | ECON | Unknown | | + + + + + Care Team Providers + +------+ + | Care Channeler Runner Name | Role | Phone | + +------+ + | Fadi Goodrich DO | PCP | | + +------+ + Reason for Visit + + + | Reason | Comments | + + + | Refill Request | Phentermine | + + + | Refill Request | | + + + Encounter Details +--------+--------+ + + + | Date | Type | Department | Care Team | Description | +--------+--------+ + + + | 07/28/ | Refill | Cardiology | Randell Franks, | Refill Request | | 2014 | | Preventive at [facility] | [address] | ([place]); | | | | [address] | [place], [place] | Refill Request | | | | Mailcode: [facility] | [phone] | | | | | [facility] | [phone] | | | | | and [address], | | | | | | [address] | | | | | | [place], [place] | | | | | | [address] | | | | | | [phone] | | | +--------+--------+ + + + [...] [address] | | | | | | [place], [place] | | | | | | [address] | | | | | | [phone] | | | | | | | | +--------+---------+ + + + documented as of this encounter Visit Diagnoses Not on filedocumented in this encounter"
--- OUTSIDE RECORDS SUMMARY | ~2019-12-19 | XMS | Encounter Summary ---
Demographics + + + | Address | [address] | | | [place] [address] | + + + | Home Phone | | + + + | Preferred Language | Unknown | + + + | Marital Status | Single | + + + | Jainism Affiliation | NON | + + + | Race | White | + + + | Ethnic Group | Not or | + + + Author + + + | Author | [facility] | + + + | Organization | [facility] | + + + | Address | Unknown | + + + | Phone | Unavailable | + + + Support + + + + + | Name | Relationship | Address | Phone | + + + + + | Katalina Padilla | ECON | [address] | | | | | [place], [place] | | | | | [address] | | + + + + + | Ellie Vang | ECON | Unknown | | + + + + + Care Team Providers + +------+ + | Care Nursing Faculty Name | Role | Phone | + [...] 04/01/ | Office | Digestive Health | Ion Pandey, | Aftercare following | | 2018 | Visit | Center at [facility] [address] | MD [address] | surgery (Primary | | | | [address] | [place], [place] | Dx); History of | | | | Mailcode: Center | [phone] | Frandy-en-Y gastric | | | | for Health and | | bypass | | | | [facility], [facility] 2 | | | | | | [place], [place] | | | | | | [address] | | | | | | [phone] | | | +--------+---------+ + + + [...] + + + | Blood Pressure | 110/79 | 04/01/2018 11:08 AM | | | | | PDT | | + + + + + | Pulse | 102 | 04/01/2018 11:08 AM | | | | | PDT | | + + + + + | Temperature | 36.4 C (97.6 F) | 04/01/2018 11:08 AM | | | | | PDT | | + + + + + | Respiratory Rate | 18 | 04/01/2018 11:08 AM | | | | | PDT | | + + + + + | Oxygen Saturation | - | - | | + + + + + | Inhaled Oxygen | - | - | | | Concentration | | | | + + + + + | Weight | 157.9 kg (348 lb) | 04/01/2018 11:08 AM | | | | | PDT | | + + + + + | Height | 149.9 cm (4' 11") | 04/01/2018 11:08 AM | | | | | PDT | | + + + + + | Body Mass Index | 70.29 | 04/01/2018 11:08 AM | | | | | PDT [...] of this encounter Patient Instructions Patient Instructions Ion Pandey MD - 04/01/2018 11:00 AM PDTAVOID NSAIDs for lifelong to minimize the risk of ulcers If you ever have symptoms of a bowel blockage/bowel obstruction, seek medical care early (n ausea/vomiting with abdominal pain and not having any bowel movements or passing gas) Safe to take your medications normally. You do not need to cut/crush meds or open capsules unless you find it easier to take meds this way. No activity restrictions! Get ACTIVE! Continue your acid blocking medication (Omeprazole) for 3 months after surgery to decrease the chances of forming early ulcers. Smoking: We strongly discourage nicotine use after surgery. Nicotine reduces oxygen to the healing stomach. There are also oysterman complications of poor wound healing and gastric u lcers. These ulcers are started by smoking or using other nicotine products (vapor cigarett es etc). Gastric bypass patients should also avoid NSAIDS(ibuprofen, advil, motrin, naprosyn/naproxe n/aleve) to prevent gastric/marginal ulcers. Please visit with our General Lithographic Worker (RD) for instructions about your Bariatric diet, assistance with calorie counts, tips and tricks for working with your diet restrictions, an d recipes after bariatric surgery. Daily yogurt; even just 1 tablespoon twice a day will provide enough probiotics to optimize digestion. Try to use a high-quality, probiotic-dense yogurt (eg Zaria's, [place], Lif eway Kefir, Quality Assurance Inspector Duke's Sinhala Yogurt). Remember to chew your food well, [...] classes and during appointments with our RD. Control (FOR FEMALES OF REPRODUCTIVE AGE): Bariatric [...] insurance card for the contact phone number). documented in this encounter Progress Notes Eldon Wagner MD - 04/01/2018 11:00 AM PDTI have seen and examined the patient. I agre e with the findings and the plan of care as documented in the resident s note. Elzbieta Cristina presents today for followup. We discussed her post-op course thus far. We rev'd some of the patient's primary concerns, to include, occasional vomiting and nausea . We dicussed a plan to decrease volume of food she eats at one time and focus on slowing do wn when she eat. She is also constipated. Discussed titrating up Miralax and increasing fluid intake. Hernia is bothering her, but that is baseline. No symptoms or signs to suggest incarceratio n or obstruction. She is walking for exercise. Getting 64oz fluid and ~60g protein. Exam room smells of smoke. She reports that she lives with her mother who smokes. We discus sed the importance of avoiding second hand smoke and I recommended she ask her mother to smo ke outside. Abd: Soft, ntnd, incisions clean and dry, some skin separation and scabbing, but overall h ealing well I have reviewed the patient's problem list and medications. I have adjusted these for meds and problems only pertinent to bariatric surgery. Pt to meet with RD and continue routine postop appointments to optimize outcomes from baria tric surgery I spent 15 min speaking with the pt, >50% of this was spent counseling about postop care. Eldon Wagner MD Electronically signed on 04/01/2018 at 11:36 AM Eldon Wagner MD. Anisa Garcia M D - 04/01/2018 11:00 AM PDT BARIATRIC SURGERY POSTOP FOLLOW UP DATE OF VISIT: 04/01/18 REASON FOR VISIT: Postop check. DATE OF SURGERY: 03/01/18 HISTORY: Elzbieta Cristina is a(n) 43 y.o. female with history of Laparoscopic Frandy-en-Y Ga stric Bypass (antecolic), EGD on 03/01/18. She was last seen in clinic on 03/10/18. At her last clinic visit an aspirate culture was taken which came back no growth to date. She is here f or a post op check. She has been having some vomiting when she started soft foods (stage 3). No blood in vomit. Happens every time that she tries to have certain foods. She usually throws up about 5 zelda maxine afterward. She often wakes up nauseous as well. She also is dehyrdated and was diagnosed with a UTI two days (03/30) ago by PCP. She has been feeling constipated (5 days since last b owel movement), 2 cap-fulls of Mirilax did not help. She is being more active-walking, no other exercise. She has been taking all supplements, t rying to get 60 gms protein daily, and 64 oz water daily. Pet Stylist just changed diet to he lp her get more protein in. She is happy with her weight loss. She still has some firmness b ut no pain around her LLQ incision. She is having tenderness at the midline where her hernia is She denies, fevers, chills, drainage. Her insulin requirements have stayed the same and CBGs have been 120s in the am. She is not on any oxycodone or postoperative pain other than tylenol as needed. She does report she is having some significant second hand smoke exposur e because her mother smokes. Past Medical History: Diagnosis Date Abdominal pain Abnormal ThinPrep Pap test of vagina Allergic rhinitis Anemia Anxiety Bipolar disorder (HCC) Chronic wound infection of abdomen Cough Depression Diverticulitis of colon Dizziness Glaucoma Heart burn Hemorrhoids Hernia of abdominal wall Incisional hernia, incarcerated Insomnia Irregular periods Kidney stone Leaking of urine Leg sore Lymphedema Morbid obesity with body mass index of 70 and over in adult (HCC) Myalgia and myositis Nausea Neck pain Numbness Osteoarthritis of knee Palpitations Pneumonia Shortness of breath Staphylococcal infection Stroke (HCC) TIA (transient ischemic attack) Tinea corporis UTI (urinary tract infection) TODAY IN CLINIC Pt has lost 24 lbs since preop visit. Symptoms: Nausea: as per HPI, taking Zofran once daily Dysphagia: none Vomiting: None Heartburn: None Abd Pain: Some pain, not taking oxy Constipation: None Diarrhea: Sometimes Is taking meds according to discharge instructions. Feels medication instructions were clear at discharge. SUPPLEMENTS: MVI: yes Calcium supplement: yes Vit D: yes B12: Yes, starts today VITAL SIGNS: BP 110/79 | Pulse 102 | Temp (Src) 36.4 C (97.6 F) (Oral) | RR 18 | Ht 1.499 m (4' 11") | Wt 157.9 kg (348 lb) | BMI 70.29 kg/(m^2) WNWD, NAD, speaking in complete sentences Exam SURGICAL SITE: Clean dry intact. There is some scabbing and erythema along the incisions. The LLQ lap site has a firmness underneath the incision. There is a midline hernia that is t kaylyn to palpation inferior to the umbilicus. The abdomen is soft and nondistended. Tenderne ss is limited to the hernia. IMPRESSION: Elzbieta Cristina is a(n) 43 y.o. female with history of Laparoscopic Frandy-en-Y Gastric Bypass (antecolic), EGD on 03/01/18 who is currently doing well postoperatively. She is having some trouble with nausea and constipation, which is expected based on her recent d iet and anatomy changes. We discussed her options for treating these. PLAN: - Probiotics - recommend Zaria's plain yogurt - Increase amount of Mirilax - Decrease second-hand smoke exposure by communicating with her mother - Follow Pet Stylist recommendations to help with nausea (decrease volume, slower speed of ta gabriel food) - No NSAIDs and NO NICOTINE to avoid risk of marginal ulcers - lifetime risk of bowel obstruction/internal hernia, so monitor for s/s of bowel obstructi on and be seen early if you experience these problems - No activity restrictions now - take medications normally (do not need to open/cut/crush meds unless unable to tolerate t hem) - fu in 2 months, we will check nutrition labs at that visit or at 6 month visit depending upon weight loss and diet intake. - ensure taking vitamins - walk regularly. If unable to walk, consider PT referral and water exercises - Meet with RD to review diet stages and recommendations - consider attendance at support groups - see PCP for ongoing management of chronic medications and medical problems. I have rev'd medications and problem list as pertains to bariatric surgery today. Anisa Dillon MD PGY-1, Red Surgery Pager: [phone] documented in this encounter Plan of Treatment +--------+---------+ + + + | Date | Type | Specialty | Care Team | Description | +--------+---------+ + + + | 03/15/ | Office | Cardiology | Randell Franks, | | | 2019 | Visit | | [address] | | | | | | [place], [place] | | | | | | [address] | | | | | | [phone] | | | | | | | | +--------+---------+ + + + documented as of this encounter Visit Diagnoses + + | Diagnosis | + + | Aftercare following surgery - Primary Encounter for other specified aftercare | + + | History of Frandy-en-Y gastric bypass Bariatric surgery status | + + documented in this encounter
--- OUTSIDE RECORDS SUMMARY | ~2019-12-19 | XMS | Encounter Summary ---
Demographics + + + | Address | [address] | | | [place] [address] | + + + | Home Phone | | + + + | Preferred Language | Unknown | + + + | Marital Status | Single | + + + | Lutheran Affiliation | NON | + + + [...] + | Katalina Padilla | ECON | [address] | | | | | [place], [place] | | | | | [address] | | + + + + + | Ellie Vang | ECON | Unknown | | + + + + + Care Team Providers + +------+ + | Care Vitamin Manager Name | Role | Phone | + +------+ + | Fadi Goodrich DO | PCP | | + +------+ + Reason for Visit + + + | Reason | Comments | + + + | Follow-up visit | | + + + Office Visit - E/M Services (Routine) +--------+--------+ + + + + | Status | Reason | Specialty | Diagnoses / | Referred By | Referred To | | | | | Procedures | Contact | Contact | +--------+--------+ + + + + | Closed | | Cardiology | Diagnoses | Kp, | Tiny | | | | | Morbid | Fadi Person DO | MD Randell | | | | | obesity | [address] | [address] | | | | | (HCC) Type | [address] | Ave | | | | | 2 diabetes | [place], | [place], [place] | | | | | mellitus | [place] [address] | [address] | | | | | without | Phone: | Phone: | | | | | complication | [phone] | [phone] | | | | | (HCC) | Fax: | Fax: | | | | | Procedures | [phone] | [phone] | | | | | [place] EST | | | | | | | PATIENT | | | | | | | LEVEL V | | | +--------+--------+ + + + + Encounter Details +--------+---------+ + + + | Date | Type | Department | Care Team | Description | +--------+---------+ + + + | 11/20/ | Office | Cardiology | Randell Franks, | Type 2 diabetes | | 2018 | Visit | Preventive at [facility] | MD [address] | mellitus without | | | | [address] | [place], [place] | complication, with | | | | Mailcode: CH9A | [address] | long-term current | | | | [facility] | [phone] | use of insulin (HCC) | | | | and Healing, | | (Primary Dx); | | | | Building [address] | | Morbid obesity with | | | | [place], [place] | | BMI of 70 and over, | | | | [address] | | adult (HCC) | | | | [phone] | | | +--------+---------+ + + + [...] Pressure | 126/70 | 11/20/2017 9:03 AM | | | | | PDT | | + + + + + | Pulse | 112 | 11/20/2017 9:03 AM | | | | | PDT | | + + + + + | Temperature | - | - | | + + + + + | Respiratory Rate | - | - | | + + + + + | Oxygen Saturation | 94% | 11/20/2017 9:03 AM | | | | | PDT | | + + + + + | Inhaled Oxygen | - | - | | | Concentration | | | | + + + + + | Weight | 180.3 kg (397 lb 6.4 | 11/20/2017 9:03 AM | | | | oz) | PDT | | + + + + + | Height | 149.9 cm (4' 11") | 11/20/2017 9:03 AM | | | | | PDT | | + + + + + | Body Mass Index | 80.27 | 11/20/2017 9:03 AM | | | | | PDT | | + + + + + documented in this encounter Progress Notes Randell Franks MD - 11/20/2017 9:35 AM PDTFormatting of this note might be different f [...] 04/14/2013 Priority: 3 Hypoventilation associated with obesity ([facility]) 06/16/2013 Priority: 4 AMARA (obstructive sleep apnea) 04/14/2013 Priority: 4 Overview Note: Cannot tolerate CPAP Severe Morbid obesity ([facility]), BMI 88 11/12/2012 Priority: 4 Overview Note: Lifetime max: 495 lbs Phentermine started Type 2 diabetes mellitus ([facility]) 04/14/2013 Priority: 5 Iron deficiency anemia due to chronic blood loss 11/11/2015 Priority: 6 Overview Note: Ferritin 18 on 10/2015 Hypoalbuminemia (no proteinuria, need to rule out synthetic, nutrition, loss) 6 Priority: 6 Hypothyroidism 08/28/2014 Priority: 8 Morbid obesity with BMI of 70 and over, adult ([facility]) 02/02/2017 Chronic diastolic heart failure (HCC) 02/02/2017 Immobility 02/02/2017 Severe muscle deconditioning 02/02/2017 Personal history of DVT (deep vein thrombosis) 02/02/2017 History of pulmonary embolism 02/02/2017 AMARA treated with BiPAP 02/02/2017 Benign essential HTN 02/02/2017 Diabetes mellitus type 2 without retinopathy ([facility]) 02/02/2017 Hyperlipidemia 02/02/2017 Ventral hernia without obstruction [...] exertion) 11/06/2015 Diabetes mellitus with insulin therapy ([facility]) 12/27/2014 Abdominal pain 02/07/2014 Migraine headache 12/05/2013 [...] 1 tablet by mouth once daily CALCIUM CRB&NNR-R1-[id number]-GENIS ORAL Take 2 tablets by mouth two times daily. ergocalciferol (VITAMIN D2) 50,000 unit oral capsule Take 50,000 Units by mouth twice w eekl (on Thursday and ). fentaNYL 25 mcg/hr [...] jeart failure is manag ed by her manager maintenance and she was seen by the bariatric surgery group and is now back [facility] for gastric bypass in the upcoming year. [...] is currently being managed well by her [facility] with diuretics and main tenance of her massive weight loss. Further weight loss following a bariatric procedure woul d improve this even more. 2) T2 Diabetes: [...] management of her heart failure by her [facility] 3) Check A1c, lipids 4) Await bariatric surgery 5) Continue phentermine 37.5 mg a day 6) Continue wound care, non-pressure ambulation of right foot wound 7) Follow-up 4-6 months A M PDTdocumented in this encounter Plan of Treatment +--------+---------+ + + + | Date | Type | Specialty | Care Team | Description | +--------+---------+ + + + | 03/15/ | Office | Cardiology | Randell Franks, | | | 2019 | Visit | | MD [address] | | | | | | [place], [place] | | | | | | [address] | | | | | | [phone] | | | | | | | | +--------+---------+ + + + documented as of this encounter Results LIPID LAB - LIPID PROFILE - PLASMA LIPIDS, HDL AND LDL (11/20/2017 10:01 AM PDT) + +---------+ + + + | Component | Value | Ref Range | Performed | Pathologist | | | | | At | Signature | + +---------+ + + + | TOTAL | 143 | <200 mg/dl | [facility] | | | CHOLESTEROL | | | LABORATORY | | | - LIPID | | | SERVICES, | | | LAB | | | LIPID | | + +---------+ + + + | VLDL | 37 (H) | <=31 mg/dl | [facility] | | | CHOLESTEROL | | | LABORATORY | | | , | | | SERVICES, | | | CALCULATED | | | LIPID | | | - LIPID LAB | | | | | + +---------+ + + + | LDL, | 68 | <100 mg/dl | [facility] | | | CHOLESTEROL | | | LABORATORY | | | - LIPID | | | SERVICES, | | | LAB | | | LIPID | | + +---------+ + + + | HDL, | 38 (L) | >50 mg/dl | [facility] | | | CHOLESTEROL | | | LABORATORY | | | - LIPID | | | SERVICES, | | | LAB | | | LIPID | | + +---------+ + + + | TOTAL | 184 (H) | <150 mg/dl | [facility] | | | TRIGLYCERID | | | LABORATORY | | | E - LIPID | | | SERVICES, | | | LAB | | | LIPID | | + +---------+ + + + | NON-HDL | 105 | <=130 mg/dL | [facility] | | [...] | + + + + + | [facility] | [address] | [place], [place] | | | SERVICES, LIPID | [address] | [address] | | + + + + + HEMOGLOBIN A1C, BLOOD (11/20/2017 10:01 AM PDT) + + + + + + | Component | Value | Ref Range | Performed | Pathologist | | | | | At | Signature | + + + + + + | HEMOGLOBIN | 7.7 (H)Comment: Hgb A1C | <5.7 % | [...] | [facility] | | considered for monitoring group home glycemic control in patients with: | LABORATORY [...] | + + + + + | [facility] | [address] | [place] [address] | | | SERVICES, SPECIAL | CLARENCE [...] and over, adult (HCC) | + + documented in this encounter
--- OUTSIDE RECORDS SUMMARY | ~2019-12-19 | XMS | Encounter Summary ---
Demographics + + + | Address | [address] | | | [place] [address] | + + + | Home Phone [...] [place], [place] | | | | | [address] | | + + + + + | Ellie Vang | ECON | Unknown | | + + + + + Care Team Providers + +------+ + | Care Latex Foam Worker Name | Role | Phone | [...] Closed | | Cardiology | Diagnoses | Tiny, | Harman, | | | | | Right heart | MD Randell | Edith Ernst, | | | | | failure | [address] | PA-C [address] | | | | | ([facility]) | [address] | [address] | | | | | Procedures | [place], [place] | [place], [place] | | | | | CONSULT TO | [address] | [address] | | | | | CAR | Phone: | Phone: | | | | | PREVENTATIVE | [phone] | [phone] | | | | | [facility] - | Fax: | Fax: | | | | | LIPIDS | [phone] | [phone] | +--------+--------+ + + + + Reason [...] Closed | | Cardiology | Diagnoses | Kp | Tiny, | | | | | Morbid | Fadi Person DO | MD Randell | | | | | obesity | [address] | [address] | | | | | (HCC) Type | [address] | Ave | | | | | 2 diabetes | [place], | [place], [place] | | | | | mellitus | [place] [address] | [address] | | | | | without | Phone: | Phone: | | | | | complication | [phone] | [phone] | | | | | (HCC) | Fax: | Fax: | | | | | Procedures | [phone] | [phone] | | | | | [place] EST | | | | | | | PATIENT | | | | | | | LEVEL V | | | +--------+--------+ + + + + Encounter Details +--------+---------+ + + + | Date | Type | Department | Care Team | Description | +--------+---------+ + + + | 11/17/ | Office | Cardiology | Randell Franks, | Essential | | 2017 | Visit | Preventive at [facility] | MD [address] | hypertension | | | | [address] | [facility] [place] | (Primary Dx); Right | | | | Mailcode: CH9A | [address] | heart failure (HCC) | | | | [facility] | [phone] | | | | | and Healing, | | | | | | Building [address] | | | | | | [place], [place] | | | | | | [address] | | | | | | [phone] | | | +--------+---------+ + + + [...] + + + | Blood Pressure | 131/60 | 06/12/2017 10:26 AM | | | | | PST | | + + + + + | Pulse | 88 | 06/12/2017 10:26 AM | | | | | PST | | + + + + + | Temperature | 36.8 C (98.3 F) | 06/12/2017 10:26 AM | | | | | PST | | + + + + + | Respiratory Rate | - | - | | + + + + + | Oxygen Saturation | 98% | 06/12/2017 10:26 AM | | | | | PST | | + + + + + | Inhaled Oxygen | - | - | | | Concentration | | | | + + + + + | Weight | 174.1 kg (383 lb | 06/12/2017 10:26 AM | | | | 14.4 oz) | PST | | + + + + + | Height | 154.9 cm (5' 1") | 06/12/2017 10:26 AM | | | | | PST | | + + + + + | Body Mass Index | 72.54 | 06/12/2017 10:26 AM | | | | | PST | | + + + + + documented in this encounter Progress Notes Randell Franks MD - 06/12/2017 10:35 AM PSTFormatting of this note might be different f rom the original. Reason for visit: Follow-up T2DM and weight management PCP: Fadi Goodrich DO Patient Active Problem List Diagnosis Date Noted Diabetes mellitus with insulin therapy 12/27/2014 Hypothyroidism 08/28/2014 Abdominal pain 02/07/2014 Migraine headache 12/05/2013 Vitamin D deficiency disease 06/16/2013 Intertriginous candidiasis 06/16/2013 HTN (hypertension) 06/16/2013 Skin breakdown 06/16/2013 Anemia 06/16/2013 Decreased mobility 06/16/2013 Hypoventilation associated with obesity 06/16/2013 PCOS (polycystic ovarian syndrome) 06/16/2013 Ventral hernia 06/16/2013 Type 2 diabetes mellitus 04/14/2013 AMARA (obstructive sleep apnea) 04/14/2013 Overview Note: Cannot tolerate CPAP Edema 04/14/2013 GERD (gastroesophageal reflux disease) 04/14/2013 Morbid obesity 11/12/2012 Overview Note: Lifetime max: 495 lbs Hernia 11/05/2012 Medications: Current Outpatient Prescriptions Medication [...] 1 tablet by mouth once daily CALCIUM CRB&TTL-G1-MYK97-GENIS ORAL Take 2 tablets by mouth two times daily. doxycycline hyclate 100 mg oral tablet Take 100 mg by mouth every twelve hours. (Pharma cist to substitute salt form as needed) ergocalciferol (VITAMIN D2) 50,000 unit oral capsule Take 50,000 Units by mouth twice w kl (on Thursday and ). fentaNYL 25 mcg/hr [...] mouth two times daily. OLANZapine 15 mg oral tablet Take 30 [...] 2 tablets by mouth two times daily. ranitidine 150 mg oral tablet Take 150 [...] remained on her medications in cluding torsemide, phentermine and insulin for diabetes. She was seen by the bariatric surge ry program and had been on track until she received a phone call (as she reports) stating th at she is required to have a physical therapy consult. When she told to call her that she co uld not afford 1, she was told that she is no longer in the bariatric surgery program. Since then she is felt very discouraged and tearful and hopeless. She has been taking care of herself but reports that the she is having a hard time keeping up with the skin breakdown of her pannus and was hoping that she could have this removed cherrie or to bariatric surgery. Her weight limits her activity but she has been working closely wit h her primary care doc to manage her fluid status and keep her weight down. The SGLT 2 inhib itor that I prescribed for his not care of by her insurance She is currently on U 100 insulin aAlong with NovoLog to treat her diabetes. She continues on phentermine and has continued to maintain her roughly 115 pound weight loss from her lif etime maximum. ROS: No CP., no YO O: vitals BP 131/60 | Pulse 88 | Temp 36.8 C (98.3 F) | Ht 1.549 m (5' 1") | Wt 174.1 k g (383 lb 14.4 oz) | SpO2 98% | BMI 72.54 kg/(m^2) PE: Gen: pleasant, NAD, crying and obviously frustrated Abd: Large pendulous pannus which is edematous. Ext: Massive edema bilaterally in her legs. No phill cellulitis noted very tender to touch . Her but are fat, hips and thighs have a characteristic appearance of lipedema with casca ding folds of fat intermixed with what appears to be vascular tissue. Labs: ssessment: 1) HFpEF: This is currently being managed well by her primary care doctor with diuretics a nd maintenance of her massive weight loss. Further weight loss following a bariatric procedu re would improve this even more. 2) T2 Diabetes: Her A1c had been doing much better now. Will continue present management. 3) Morbid obesity: She has reached maximal medical weight loss 115 pounds from her baseline weight. I will speak with the bariatric surgery program here and refer her to our cardiac r ehabilitation specialist who also has expertise in physical activity for evaluation and pilar mmendations regarding activity management prior to bariatric surgery. 4) Hypothyroidism: TSH stable, will continue to monitor yearly. Plan: 1) Continue healthy diet and activity as tolerated 2) Continue management of her heart failure by her PCP 3) referral to Edith Harman regarding physical activity 4) discussed with bariatric surgery team regarding keeping her on track for gastric bypass operation 5) Continue phentermine 37.5 mg a day 6) Follow-up 4-6 months A M PSTdocumented in this encounter Plan of Treatment +--------+---------+ + + + | Date | Type | Specialty | Care Team | Description | +--------+---------+ + + + | 03/15/ | Office | Cardiology | Randell Franks, | | | 2019 | Visit | | [address] | | | | | | [place], [place] | | | | | | [address] | | | | | | [phone] | | | | | | | | +--------+---------+ + + + documented as of this encounter Visit Diagnoses + + | Diagnosis | + + | Essential hypertension - Primary | + + | Right heart failure (HCC) Congestive heart failure, unspecified | + + documented in this encounter
--- OUTSIDE RECORDS SUMMARY | ~2019-12-19 | XMS | Encounter Summary ---
Demographics + + + | Address | [address] | | | [place] [address] | + + + | Home Phone | | + + + | Preferred Language | Unknown | + + + | Marital Status | Single | + + + | Church Affiliation | NON | + + + [...] + | Katalina Padilla | ECON | [address] | | | | | [place], [place] | | | | | [address] | | + + + + + | Ellie Vang | ECON | Unknown | | + + + + + Care Team Providers + +------+ + | Care Paper Roller Name | Role | Phone | + [...] Floor | | | | | | [facility] and | [place], [place] | | | | | | Healing, | [address] | | | | | | Building 2 | Phone: | | | | | | [place], [place] | [phone] | | | | | | [address] | Fax: | | | | | | Phone: | [phone] | | | | | | [phone] | | | | | | | Fax: | | | | | | | [phone] | | +--------+--------+ + + + + [...] | | | without | SURGICAL | [facility] | | | | | mention of | [address] [place], | | | | | obstruction | [address] | [place] | | | | | or gangrene | [address]VE | [address] | | | | | | [place], | Phone: | | | | | | [place] [address] | [phone] | | | | | | Phone: | Fax: | | | | | | [phone] | [phone] | | | | | | Fax: | | | | | | | [phone] | | +--------+--------+ + + + + [...] | | | | [address] | [facility] | | | | | Mailcode: Center | [place], [place] | | | | | [facility] and | [address] | | | | | [facility], [facility] 2 | [phone] | | | | | [place], [place] | | | | | | [address] | | | | | | [phone] | | | +--------+---------+ + + + [...] colonoscopy), but a referral to [facility] mentioned this was probably an incisional [...] issues. 2. Optimally will need coordination for [facility] Medicaid & [facility] Bariatric program for wt loss. 3. [...] material. 4. Continue to meet with her Biblical Languages Professor in the outpatient setting for diet and [...] has been instructed to f/u w/ her master yacht for a strict diet of <1000 kcal/d [...] teaching. Howie Faria MD MIS/Bariatric Fellow, Pager [address] [facility] Attending provider: Hernandez Brian MD documented in this en counter Plan of Treatment +--------+---------+ + + + | Date | Type | Specialty | Care Team | Description | +--------+---------+ + + + | 03/15/ | Office | Cardiology | Randell Franks, | | | 2019 | Visit | | [address] | | | | | | [place], [place] | | | | | | [address] | | | | | | [phone] | | | | | | | [...] | | + +---------+ + + | [facility] DEPARTMENT OF | | | | | RADIOLOGY | | | | + +---------+ + + documented in this encounter Visit Diagnoses + + | Diagnosis | + + | Hernia - Primary Hernia of unspecified site of abdominal cavity without mention of | | obstruction or gangrene | + + documented in this encounter
--- OUTSIDE RECORDS SUMMARY | ~2019-12-19 | XMS | Encounter Summary ---
Demographics + + + | Address | [address] | | | [place] [address] | + + + | Home Phone [...] + | Katalina Padilla | ECON | [address] | | | | | [place], [place] | | | | | [address] | | + + + + + | Ellie Vang | ECON | Unknown | | + + + + + Care Team Providers + +------+ + | Care Teller Supervisor Name | Role | Phone | [...] | | 2016 | | Preventive at [facility] | MD [address] | (Phentermine) | | | | [address] | [place], [place] | | | | | Mailcode: Mihaela | [address] | | | | | [facility] | [phone] | | | | | and [place], | | | | | | Building [address] | | | | | | [place], [place] | | | | | | [address] | | | | | | [phone] | | | +--------+ + + + [...] [address] | | | | | | [place], [place] | | | | | | [address] | | | | | | [phone] | | | | | | | | +--------+---------+ + + + documented as of this encounter Visit Diagnoses Not on filedocumented in this encounter"
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
--- OUTSIDE RECORDS SUMMARY | ~2019-12-19 | XMS | Encounter Summary ---
Demographics + + + | Address | [address] | | | [place] [address] | + + + | Home Phone [...] [place], [place] | | | | | [address] | | + + + + + | Ellie Vang | ECON | Unknown | | + + + + + Care Team Providers + +------+ + | Care Associate Property Manager Name | Role | Phone | + +------+ + | Fadi Goodrich DO | PCP | | + +------+ + Encounter Details +--------+------+ + + + | Date | Type | Department | Care Team | Description | +--------+------+ + + + | 11/28/ | Lab | Laboratory at [facility] | | Essential | | 2017 | | [address] | | hypertension; Right | | | | [place], [place] | | heart failure (HCC); | | | | [address] | | Type 2 diabetes | | | | [phone] | | mellitus without | | | [...] [address]annery | | | | | | [place], [place] | | | | | | [address] | | | | | | [phone] | | | | | | | [...] | | | | use of insulin ([facility]) | | + +--------+ + + + [...] | | | | use of insulin ([facility]) | | + +--------+ + + + | TSH | Routin | 11/28/2016 | Essential | Results for this | | | e | 10:53 AM | hypertension Right | procedure are in the | | | | PDT | heart failure ([facility]) | results section. | | | | [...] | | | PDT | heart failure ([facility]) | results section. | | | | | Type 2 diabetes | | | | | | mellitus without | | | | | | complication, with | | | | | | long-term current | | | | | | use of insulin ([facility]) | | + +--------+ + + + [...] | + + + + + | [facility] | [address] | [place] [address] | | | SERVICES, CORE | CLARENCE [...] testing methodology and reference ranges effective May [place] | | 2015. | LABORATORY | | | SERVICES, LIPID | + + + + + + + + | Performing | Address | City/State/Zipcode | Phone Number | | Organization | | | | + + + + + | [facility] | [address] | [place], [place] | | | SERVICES, LIPID | [address] | [address] | | + + + + + [...] glycated albumin should be considered for monitoring roasterman | LABORATORY | | glycemic control in [...] + + + | [facility] | [address] | [place] [address] | | | SERVICES, SPECIAL | [address] | | | | IMM + [...] | | | LABORATORY | | | PALESTINIAN | | | SERVICES, | | | [...] | + + + + + | [facility] | [address] | [place] [address] | | | CLAIRE, LYDIA | CLARENCE [...]
--- OUTSIDE RECORDS SUMMARY | ~2019-12-19 | XMS | Encounter Summary ---
Demographics + + + | Address | [address] | | | [place] [address] | + + + | Home Phone [...] + | Katalina Padilla | ECON | [address] | | | | | [place], [place] | | | | | [address] | | + + + + + | Ellie Vang | ECON | Unknown | | + + + + + Care Team Providers + +------+ + | Care Supervisor Metal Furniture Assembly Name | Role | Phone | + [...] | | | Ave Mailcode: [address] | [place], [place] | | | | | [facility] | [address] | | | | | and [address], | [phone] | | | | | [place] [address] | | | | | | Floor [place], [place] | | | | | | [address] | | | | | | [phone] | | | +--------+ + + + [...] | | 2019 | Visit | | [address] | | | | | | [place], [place] | | | | | | [address] | | | | | | [phone] | | | | | | | | +--------+---------+ + + + documented as of this encounter Visit Diagnoses Not on filedocumented in this encounter"
--- OUTSIDE RECORDS SUMMARY | ~2019-12-19 | XMS | Encounter Summary ---
Demographics + + + | Address | [address] | | | [place] [address] | + + + | Home Phone [...] + | Katalina Padilla | ECON | [address] | | | | | [place], [place] | | | | | [address] | | + + + + + | Ellie Vang | ECON | Unknown | | + + + + + Care Team Providers + +------+ + | Care Senior Property Manager Name | Role | Phone | + +------+ + | Kenyatta Cardenas MD | PCP | | + +------+ + Encounter Details +--------+ + + + + | Date | Type | Department | Care Team | Description | +--------+ + + + + | 03/03/ | Pharmacy | Outpatient Retail | | | | 2014 | Visit | [facility] | | | | | | [address] | | | | | | Loop [place], [place] | | | | | | [address] | | | | | | [phone] | | | +--------+ + + + [...] [address]annery | | | | | | [place], [place] | | | | | | [address] | | | | | | [phone] | | | | | | | | +--------+---------+ + + + documented as of this encounter Visit Diagnoses Not on filedocumented in this encounter"
--- OUTSIDE RECORDS SUMMARY | ~2019-12-19 | XMS | Encounter Summary ---
Demographics + + + | Address | [address] | | | [place] [address] | + + + | Home Phone | | + + + | Preferred Language | Unknown | + + + | Marital Status | | + + + | Mandaeism Affiliation | Unknown | + + + | Race | Unknown | + + + | Ethnic Group | Unknown | + + + Author + + + | Author | [facility] | | | and [place] | + + + | Organization | [facility] | | | and [place] | [...] Team Providers + +------+ + | Care Tension Worker Name | Role | Phone | + +------+ + | Jorje Hill | PCP | | + +------+ + Reason for Visit + + + | Reason | Comments | + + + | Referral | | + + + Encounter Details +--------+ + + + + | Date | Type | Department | Care Team | Description | +--------+ + + + + | 06/10/ | Telephone | [facility] | [facility], | Referral | | 2019 | | INTERVENTIONAL | Mary Ortiz | | | | | RADIOLOGY [address] | Community Relations Advisor | | | | | [address] | | | | | | [place], [place] | | | | | | [address] | | | | | | [phone] | | | +--------+ + + + [...] [address] | | | | | | [place] [address] | | | | | | [phone] | | | | | | | | +--------+---------+ + + + documented as of this encounter Visit Diagnoses Not on filedocumented in this encounter"
--- OUTSIDE RECORDS SUMMARY | ~2019-12-19 | XMS | Encounter Summary ---
Demographics + + + | Address | [address] | | | [place] [address] | + + + | Home Phone [...] + | Katalina Padilla | ECON | [address] | | | | | [place], [place] | | | | | [address] | | + + + + + | Ellie Vang | ECON | Unknown | | + + + + + Care Team Providers + +------+ + | Care Electrophysiologist Name | Role | Phone | + +------+ + | Fadi Goodrich DO | PCP | | + +------+ + Reason for Visit + + + | Reason | Comments | + + + | Medical Records | Letter from corrections caseworker. | | Review | | + + + Encounter Details +--------+ + + + + | Date | Type | Department | Care Team | Description | +--------+ + + + + | 11/08/ | Abstract | Digestive Health | Shereen Georges, | Medical Records | | 2014 | | Center at [facility] 1977 | ACNP [address] | Review (Letter from | | | | [address] | [place]ma [place], [place] | corrections caseworker. ) | | | | Mailcode: [place] | [address] | | | | | [facility] and | [phone] | | | | | [place] [address] | | | | | | [place], [place] | | | | | | [address] | | | | | | [phone] | | | +--------+ + + + [...] [address]ann[address] | | | | | | [place], [place] | | | | | | [address] | | | | | | [phone] | | | | | | | | +--------+---------+ + + + documented as of this encounter Visit Diagnoses Not on filedocumented in this encounter"
--- OUTSIDE RECORDS SUMMARY | ~2019-12-19 | XMS | Encounter Summary ---
Demographics + + + | Address | [address] | | | [place] [address] | + + + | Home Phone | | + + + | Preferred Language | Unknown | + + + | Marital Status | | + + + | Judaism Affiliation | Unknown | + + + | Race | Unknown | + + + | Ethnic Group | Unknown | + + + Author + + + | Author | [facility] | | | and [place] | + + + | Organization | [facility] | | | and [place] [...] Team Providers + +------+ + | Care Hair Mixer Name | Role | Phone | + [...] + + | 08/17/ | Refill | [facility] | Sulema Altamirano | Medication Refill | | 2019 | | CARDIOLOGY SAIMA | [address] | | | | | [address] | [address] | | | | | [address] | [place] [address] | | | | | [place] | [phone] | | | | | [address] | | | | | | [phone] | | | +--------+--------+ + + + [...] [address] | | | | | | [place] [address] | | | | | | [phone] | | | | | | | | +--------+---------+ + + + documented as of this encounter Visit Diagnoses Not on filedocumented in this encounter"
--- OUTSIDE RECORDS SUMMARY | ~2019-12-19 | XMS | Encounter Summary ---
Demographics + + + | Address | [address] | | | [place] [address] | + + + | Home Phone [...] [place], [place] | | | | | [address] | | + + + + + | Ellie Vang | ECON | Unknown | | + + + + + Care Team Providers + +------+ + | Care Shoe Trimmer Name | Role | Phone | [...] + + + + | 03/03/ | Documentati | [facility] | Lab, Gi Procedure | Medical Records | | 2019 | on | [address] | | Review | | | | [address] Mailcode: | | | | | | [address] [facility] | | | | | | Health and Healing, | | | | | | [address] | | | | | | [place], [place] | | | | | | [address] | | | | | | [phone] | | | +--------+ + + + [...] [place] | | | | | | [address] | | | | | | [phone] | | | | | | | | +--------+---------+ + + + documented as of this encounter Visit Diagnoses Not on filedocumented in this encounter"
--- OUTSIDE RECORDS SUMMARY | ~2019-12-19 | XMS | Encounter Summary ---
Demographics + + + | Address | [address] | | | [place] [address] | + + + | Home Phone [...] + | Katalina Padilla | ECON | [address] | | | | | [place], [place] | | | | | [address] | | + + + + + | Ellie Vang | ECON | Unknown | | + + + + + Care Team Providers + +------+ + | Care Slip Box Changer Name | Role | Phone | + +------+ + | Kenyatta Cardenas MD | PCP | | + +------+ + Reason for Visit +--------+ + | Reason | Comments | +--------+ + | Pain | | +--------+ + Encounter Details +--------+ + + + + | Date | Type | Department | Care Team | Description | +--------+ + + + + | 08/18/ | Telephone | Digestive Health | Chilo | Pain | | 2020 | | Center at [facility] [address] | MD [address] | | | | | [address] | [address] | | | | | Mailcode: Center | [place], [place] | | | | | [facility] and | [address] | | | | | [facility] [address] | [phone] | | | | | [place], [place] | | | | | | [address] | | | | | | [phone] | | | +--------+ + + + [...] [place] | | | | | | [address] | | | | | | [phone] | | | | | | | | +--------+---------+ + + + documented as of this encounter Visit Diagnoses Not on filedocumented in this encounter"
--- OUTSIDE RECORDS SUMMARY | ~2019-12-19 | XMS | Encounter Summary ---
Demographics + + + | Address | [address] | | | [place] [address] | + + + | Home Phone [...] + | Katalina Padilla | ECON | [address] | | | | | [place], [place] | | | | | [address] | | + + + + + | Ellie Vang | ECON | Unknown | | + + + + + Care Team Providers + +------+ + | Care In Home Nanny Name | Role | Phone | + [...] | | 2015 | | Preventive at [facility] | [address] | | | | | [address] | [place], [place] | | | | | Mailcode: [facility] | [address] | | | | | [facility] | [phone] | | | | | and [address], | | | | | | [address] | | | | | | [place], [place] | | | | | | [address] | | | | | | [phone] | | | +--------+ + + + [...] [address] | | | | | | [place], [place] | | | | | | [address] | | | | | | [phone] | | | | | | | | +--------+---------+ + + + documented as of this encounter Visit Diagnoses Not on filedocumented in this encounter"
--- OUTSIDE RECORDS SUMMARY | ~2019-12-19 | XMS | Encounter Summary ---
Demographics + + + | Address | [address] | | | [place] [address] | + + + | Home Phone [...] Author + + + | Author | [facility] | + + + | Organization | [facility] | + + + | Address | Unknown | + + + | Phone | Unavailable | + + + Support + + + + + | Name | Relationship | Address | Phone | + + + + + | Katalina Padilla | ECON | [address] | | | | | [place], [place] | | | | | [address] | | + + + + + | Ellie Vang | ECON | Unknown | | + + + + + Care Team Providers + +------+ + | Care Motel Front Desk Attendant Name | Role | Phone | [...] 04/30/ | Abstract | Digestive Health | Dannie Ion Vinicius, | Outside Records | | 2018 | | Center at [facility] [address] | MD [address] | Received | | | | [address] | [place], [place] | | | | | Mailcode: [place] | [address] | | | | | [facility] and | | | | | | [facility] [address] | | | | | | [place], [place] | | | | | | [address] | | | | | | | [...] [address]ann[address] | | | | | | [place] | | | | | | [address] | | | | | | [phone] | | | | | | | | +--------+---------+ + + + documented as of this encounter Visit Diagnoses Not on filedocumented in this encounter"
--- OUTSIDE RECORDS SUMMARY | ~2019-12-19 | XMS | Encounter Summary ---
Demographics + + + | Address | [address] | | | [place] [address] | + + + | Home Phone [...] + | Katalina Padilla | ECON | [address] | | | | | [place], [place] | | | | | [address] | | + + + + + | Ellie Vang | ECON | Unknown | | + + + + + Care Team Providers + +------+ + | Care Citrix Architect Name | Role | Phone | [...] | [address] | Lesly Gutiérrez [place], | | | | | Mailcode: CH6A | [place] [address] | | | | | [place], [place] | | | | | | [address] | | | | | | [phone] | | | +--------+ + + + [...] [place] | | | | | | [address] | | | | | | [phone] | | | | | | | | +--------+---------+ + + + documented as of this encounter Visit Diagnoses Not on filedocumented in this encounter"
--- OUTSIDE RECORDS SUMMARY | ~2019-12-19 | XMS | Encounter Summary ---
Demographics + + + | Address | [address] | | | [place] [address] | + + + | Home Phone [...] [address] | | | | | [place], [place] | | | | | [address] | | + + + + + | Ellie Vang | ECON | Unknown | | + + + + + Care Team Providers + +------+ + | Care Splicing Supervisor Name | Role | Phone | + +------+ + | Fadi Goodrich DO | PCP | | + +------+ + Reason for Visit + + + | Reason | Comments | + + + | Prior Authorization | [facility] 5 mg | | Request | | + + + Encounter Details +--------+ + + + + | Date | Type | Department | Care Team | Description | +--------+ + + + + | 12/01/ | Telephone | Cardiology | Randell Franks, | Prior Authorization | | 2017 | | Preventive at [facility] | [address] | Request (Eric[facility] 5 | | | | [address] | [facility] [place] | mg) | | | | Mailcode: [facility] | [address] | | | | | [facility] | [phone] | | | | | and [address] | | | | | | [address] | | | | | | [place], [place] | | | | | | [address] | | | | | | [phone] | | | +--------+ + + + [...] | 2019 | Visit | | [address] | | | | | | [place], [place] | | | | | | [address] | | | | | | [phone] | | | | | | | | +--------+---------+ + + + documented as of this encounter Visit Diagnoses Not on filedocumented in this encounter"
--- OUTSIDE RECORDS SUMMARY | ~2019-12-19 | XMS | Encounter Summary ---
Demographics + + + | Address | [address] | | | [place] [address] | + + + | Home Phone [...] + | Katalina Padilla | ECON | [address] | | | | | [place], [place] | | | | | [address] | | + + + + + | Ellie Vang | ECON | Unknown | | + + + + + Care Team Providers + +------+ + | Care Parent Partner Name | Role | Phone | + +------+ + | Fadi Goodrich DO | PCP | | + +------+ + Encounter Details +--------+ + + + + | Date | Type | Department | Care Team | Description | +--------+ + + + + | 02/13/ | Abstract | Cardiology | Randell Franks, | | | 2015 | | Preventive at [facility] | MD [address] | | | | | [address] | [facility] [place] | | | | | Mailcode: CH9[facility] | [address] | | | | | [facility] | [phone] | | | | | and Healing, | | | | | | [address] | | | | | | [facility] [place] | | | | | | [address] | | | | | | [phone] | | | +--------+ + + + [...] | | 2019 | Visit | | [address] | | | | | | [place], [place] | | | | | | [address] | | | | | | [phone] | | | | | | | | +--------+---------+ + + + documented as of this encounter Visit Diagnoses Not on filedocumented in this encounter"
--- OUTSIDE RECORDS SUMMARY | ~2019-12-19 | XMS | Encounter Summary ---
Demographics + + + | Address | [address] | | | [place] [address] | + + + | Home Phone [...] + + + | Author | [facility] | + + + | Organization | [facility] | + + + | Address | Unknown | + + + | Phone | Unavailable | + + + Support + + + + + | Name | Relationship | Address | Phone | + + + + + | Katalina Padilla | ECON | [address] | | | | | [place], [place] | | | | | [address] | | + + + + + | Ellie Vang | ECON | Unknown | | + + + + + Care Team Providers + +------+ + | Care Obstetrician Name | Role | Phone | + [...] Closed | | Surgery | Diagnoses | | Chilo | | | | | Ventral | Chilo, | MD Jones | | | | | hernia | MD Jones | [address] | | | | | without | [address] | [place] | | | | | obstruction | [address] | Rd [place], | | | | | or gangrene | Rd | [place] | | | | | | [place], [place] | [address] | | | | | Incarcerated | [address] | Phone: | | | | | ventral | Phone: | [phone] | | | | | hernia | [phone] | Fax: | | | | | Procedures | Fax: | [phone] | | | | | REQUEST TO | [phone] | | | | | | SURGERY | | | | | | | INSOLVENCY PRACTITIONER | | | | | | | DE REPAIR | | | | | | | INCISIONAL | | | | | | | HERNIA,STRAN | | | | | | | G DE REPAIR | | | | | | | INCIS | | | | | | | HERNIA W | | | | | | | MESH DE | | | | | | | MUSCLE-SKIN | | | | | | | FLAP,TRUNK | | | | | | | DE | | | | | | | MUSCLE-SKIN | | | | | | | FLAP,TRUNK | | | | | | | DE REPAIR | | | | | | | INCISIONAL | | | | | | | HERNIA,REDUC | | | | | | | IBLE DE | | | | | | | REPAIR INCIS | | | | | | | HERNIA W | | | | | | | MESH DE | | | | | | | REPAIR | | | | | | | RECURR INCIS | | | | | | | | | | | | | | HERNIA,STRAN | | | | | | | G DE REPAIR | | | | | | | INCIS | | | | | | | HERNIA W | | | | | | | MESH DE | | | | | | | REPAIR | | | | | | | RECURR INCIS | | | | | | | | | | | | | | HERNIA,REDUC | | | | | | | DE REPAIR | | | | | | | INCIS HERNIA | | | | | | | W MESH | | | +--------+--------+ + + + [...] Closed | | Surgery | Diagnoses | Welshans, | Gs General | | | | | Ventral | Keren W, | Surg Chh2 | | | | | hernia | [facility] [address] | [address] | | | | | without | [address] | Ave | | | | | obstruction | [place], | Mailcode: | | | | | or gangrene | [place] | [facility] | | | | | Abdominal | [address] | Health and | | | | | pain, | Phone: | Healing, | | | | | unspecified | [phone] | Building 2 | | | | | abdominal | Fax: | [place], [place] | | | | | location | [phone] | [address] | | | | | Procedures | | Phone: | | | | | CONSULT TO | | [phone] | | | | | SURGERY - | | Fax: | | | | | GENERAL | | [phone] | +--------+--------+ + + + + Encounter Details +--------+---------+ + + + | Date | Type | Department | Care Team | Description | +--------+---------+ + + + | 05/05/ | Office | Digestive Health | Chilo, | Ventral hernia | | 2019 | Visit | Center at [facility] [address] | MD Jones [address] | without obstruction | | | | [address] | [address] | or gangrene (Primary | | | | Mailcode: Center | [place], [place] | Dx) | | | | for Health and | [address] | | | | | Healing, Building 2 | [phone] | | | | | [place], [place] | | | | | | [address] | | | | | | [phone] | | | +--------+---------+ + + + [...] or then, we may have to ken amina. Managing Diarrhea with Soluble Fiber There are [...] (1?2 cup) 6.5 Avocado 1?2 fruit 2.1 [place] sprouts, cooked 125 mL (1?2 cup) 2.0 Figs, dried 60 mL (1?4 cup) 1.9 [place] 1 medium 1.8 Sweet Potato, cooked, without [...] 1.3 Eggplant 125 mL (1?2 cup) 1.3 [place], with skin 1 medium 1.0-1.3 Peas, green, cooked 125 mL (1?2 cup) 0.8-1.3 Carrot, cooked [place] 125 mL (1?2 cup) 1?2 fruit 1.1-1.2 0.7-1.1 Grapefruit 1?2 fruit 0.7-1.1 Prunes, dried 3 1.1 [place], with skin 2 fruits 1.1 Apricots, dried [...] Bread, rye 35 g (1 slice) 0.6-1.0 Fountain bread crackers 3 crackers 0.9 Raisin bran [...] of Soluble Fiber [email or web address] PATIENT SURGERY INFORMATION [facility] General Surgery Office Toll-free: ext [phone] Surgery Date: Monday, July 08, [address]: Main [facility] Procedure: recurrent ventral hernia repair Surgeon Name: Dr. Jones Tiwari DIRECTIONS FOR SURGERY TO PREPARE FOR SURGERY - If you are able, walk every day for at least 30 minutes. - Follow up: Phone pre-operative medicine clinic call to be completed within 30 days of emerson jerrica. This call appointment will be scheduled with you by a computer processing scheduler. You will receive a ca ll within [...] ease call the General Surgery Office at [phone] for [id number]. Check-in on the day of surgery is at the Admitting Department located on the 9th floor of [facility]. DIET Nothing to eat or drink [...] the surgery. Please see the list below, [facility] has a list of products that [...] contact our office . Products Containing Aspirin Yuki-Lincoln, Anacin, Anexsia with Codeine, Andynos, Aspirin, Aspirin suppositories, Ascrip tin, Aspergum, Axotal, B-A-C, Baby Aspirin, Lucila, BC Powder, Bexophene, Buffaprin, Bufferin , Buffinol, Cama-Arthritis Strength, Congespirin, Fancy Farm, Coricidin, Damason, Darvon, Dristan, Kalani-Gesic, Digel, Dolprin #3 Tablets, Donatab, Doxaphene, Duragesic, Easprin, Ecotrin, Emag rin Forte, Emiprin, Emprazil, Equagesic, Equazine M, Excedrin, Fiogesic, Fiorgen PH, Fiorice t, Fiorinal, 4-Way Cold Tablet, Gemnisyn, Indocin, Liquprin, Lortab ASA, Magnaprin, Marnal, Meprobamate, Midol, Momentum, Norgesic, [place], Orphengesic, Pabalate, P-A-C, Percodan, Pre salin, Robaxasil, Roxiprin, Saleto, Salocol, SK-65 Compound, Sine-Aid, Sine-Off, [place], Supac, Talwin Compound, Trigesic, Tolectin, Traiminicin, Vanquish, ZORprin, Zomax Products Containing Ibuprofen Advil, Aleve, Haltran, Medipren, Midol, Motrin, Naproxyn, Nuprin, Rufen Herbal Medications Ephedra: discontinue 24 hours before surgery Garlic: discontinue 7 days prior to surgery Ginkgo: discontinue 36 hours prior to surgery Ginseng: discontinue 7 days prior to surgery Kava: discontinue 24 hours prior to surgery [place] s Wort: discontinue 5 days prior to surgery Valerian: discontinue several weeks prior to surgery Other Products Which May Promote Bleeding Vitamin E, Gingko Biloba, Marine Fatty Acids, Wooldridge-3 Fish Oil Supplement PRE-OP BATHING/SHOWER INSTRUCTIONS with [facility] Bathe or shower the evening before and [...] loss of tissue. Check out the free [employer] Quit Line - The Quit Line is open 24 hours a day, seven days a we ek. The Quit Line is a telephone and web-based counseling service to help [place]ians quit us ing tobacco and nicotine products. 1.800.QUIT.NOW ( ) or www.quitnow.net/[place] PARKING Parking at the [facility] for patients and visitors is available in the [facility] tructure located across from the emergency department. Patient parking is available on level 1 and 3. Metered parking is available on the top level. Parking at [facility] is available in the building's parking structure. For additional parking options visit [email or web address]. TRANSPORTATION You will require transportation home on the day of discharge. Pain medications and physical activity restrictions may limit your ability to drive safely. CANCELLING YOUR PROCEDURE Please notify the general surgery office at [phone] as soon as possible should you nee [...] lost 100+ lbs! She last saw the [facility] team in 02/2019, at which time [...] vomits almost every time that she eats. Sh yesenia will usually have to get up in [...] plans to see an ENT and a dry placer machine operator for her symptoms in the near future. She was over 500 lbs before her bypass and is down around 265 lbs today. She reports that she had wound infections after her appendectomy which required multiple vinson rgeries afterwards. She was left with an open wound that she had to pack for a number of mon ths. She reports that she retains water and [...] nilesh limb 150 cm or less [facility] Past Medical History: Diagnosis Date Abdominal pain Abnormal ThinPrep Pap test of vagina Allergic rhinitis Anemia Anxiety Bipolar disorder ([facility]) Chronic wound infection of abdomen from 2010 Cough Depression Diverticulitis of colon Dizziness Glaucoma Heart burn Hemorrhoids Hernia of abdominal wall Incisional hernia, incarcerated 2012 Insomnia Irregular periods Kidney stone Leaking of urine Leg sore Lymphedema Morbid obesity with body mass index of 70 and over in adult ([facility]) Myalgia and myositis Nausea Neck pain Numbness Osteoarthritis of knee Palpitations Pneumonia Shortness of breath Staphylococcal infection Stroke ([facility]) TIA (transient ischemic attack) due to [...] file Gets together: Not on file Attends yazdanism service: Not on file Active member of club or organization: Not on file Attends meetings of clubs or organizations: Not on file Relationship status: Not on file Other Topics Concern Not on file Social History Narrative Updated 11/09/15 She lives in [place] with her mother and her sister (also her caregiver) lives in an apa rtment/duplex below. She has 2 grandchildren (age 4 and 7) who live with her daughter and son-in-law Her boyfriend lives in [place] HFpEF, DM2, HTN, Sleep Apnea (unable to tolerate CPAP), Hypothyroidism, Severe Obesity (Li tiara max weight 495 lbs) Last seen by [...] program here and refer her to our search specialist who also has expertise in physical [...] daily. BELBUCA 600 mcg buccal film CALCIUM CRB&LCC-Q6-WSF06-GENIS ORAL Take 2 tablets by mouth two [...] morbid obesity s/p laparoscopic anteocolic RYGB (03/01/2018); sinc e this operation, she has lost 100+ [...] by Gadiel Yi . JONES TIWARI MD [facility] [address] Mailcode: [place] [address] I spent 31 minutes with the patient. Greater than 50% of the time was spent counseling and educating the patient regarding weight loss, as well as other factors pertinent to ventral hernia repair. ERdoculars ented in this encounter Plan of Treatment +--------+---------+ + + + | Date | Type | Specialty | Care Team | Description | +--------+---------+ + + + | 03/15/ | Office | Cardiology | Randell Franks, | | | 2019 | Visit | | [address] | | | | | | [place], [place] | | | | | | [address] | | | | | | [phone] | | | | | | | | +--------+---------+ + + + documented as of this encounter Visit Diagnoses + + | Diagnosis | + + | Ventral hernia without obstruction or gangrene - Primary Ventral hernia, unspecified, | | without mention of obstruction or gangrene | + + documented in this encounter
--- OUTSIDE RECORDS SUMMARY | ~2019-12-19 | XMS | Encounter Summary ---
Demographics + + + | Address | [address] | | | [place] [address] | + + + | Home Phone [...] + | Katalina Padilla | ECON | [address] | | | | | [place], [place] | | | | | [address] | | + + + + + | Elile Vang | ECON | Unknown | | + + + + + Care Team Providers + +------+ + | Care Risk Assessment Analyst Name | Role | Phone | + +------+ + | Kenyatta Cardenas MD | PCP | | + +------+ + Encounter Details +--------+ + + + + | Date | Type | Department | Care Team | Description | +--------+ + + + + | 05/31/ | Inside | Endoscopic | Ronna Clarke, | | | 2018 | Referral | Procedural Unit at | [facility] [address] | | | | Order | [address] | [address] [facility] [place] | | | | | [address] | [address] | | | | | [address], | [phone] | | | | | 4th floor [place], | | | | | | [place] [address] | | | | | | [phone] | | | +--------+ + + + [...] | 03/15/ | Office | Cardiology | Rnadell Franks, | | | 2019 | Visit | | [address] | | | | | | [facility] [place] | | | | | | [address] | | | | | | [phone] | | | | | | | | +--------+---------+ + + + documented as of this encounter Results EGD (06/23/2018 3:58 PM PST) + + | Specimen | + + | | + + + +--------- -----+ | Narrative | Performe d At | + +--------- -----+ | MRN: | [facility] | | [id number] Date: 06/23/2018Patient Name: Elzbieta Curtis #: | ENDOSCOP Y | | [id number] of : 1975CSN: [id number] Type: | | | AmbulatoryRoom: SORProcedure: Upper GI | | | endoscopyIndications: Nausea with vomiting, Status post | | | Mtzi-vo-HHuklvfeaa: KALEB MILES MD (Doctor), JOSE | | | NASIMA, Monument Stonecutter | | | (Monument Stonecutter)Referring MD: DANIELLE GARCÍAPRequesting | | | Provider: Medicines: Monitored Anesthesia [...] | | | The Olympus GIF-HQ190 Gastroscope #[id number] was | | | introduced through the [...] endoscope without resistance. The | | | bnsxn-ka-vnryvvv limb was characterized by healthy appearing | [...] dilation if symptoms | | | persist.KALEB MILES MD06/23/2018 5:17:38 PMThis report has been | | | signed electronically.Number of Addenda: 0Note Initiated On: | | | 06/23/2018 3:58 [facility] Letter to: RADHA MICHAEL, DO | | | - Repeat upper endoscopy in 1-2 weeks for repeat | | | dilation if symptoms persist. | | |KALEB MILES MD | | |06/23/2018 5:17:38 PM | | |This report has been signed electronically. | | |Number of Addenda: 0 | | |Note Initiated On: 06/23/2018 3:58 PM | | |CC Letter to: | | | RADHA MICHAEL, DO | | + +--------- -----+ + +---------+ + + | Performing | Address | City/State/[facility] | Phone Number | | Organization | [...]
--- OUTSIDE RECORDS SUMMARY | ~2019-12-19 | XMS | Encounter Summary ---
Demographics + + + | Address | [address] | | | [place] [address] | + + + | Home Phone [...] + | Katalina Padilla | ECON | [address] | | | | | [place], [place] | | | | | [address] | | + + + + + | Ellie Vagn | ECON | Unknown | | + + + + + Care Team Providers + +------+ + | Care Aircraft Layout Worker Name | Role | Phone | + +------+ + | Fadi Goodrich DO | PCP | | + +------+ + Encounter Details +--------+ + + + + | Date | Type | Department | Care Team | Description | +--------+ + + + + | 02/24/ | Abstract | Cardiology | Randell Franks, | | | 2015 | | Preventive at [facility] | MD [address] | | | | | [address] | [facility] [place] | | | | | Mailcode: CH9A | [address] | | | | | [facility] | [phone] | | | | | and Healing, | | | | | | Building [address] | | | | | | [facility] [place] | | | | | | [address] | | | | | | [phone] | | | +--------+ + + + [...] | | 2019 | Visit | | [address] | | | | | | [place], [place] | | | | | | [address] | | | | | | [phone] | | | | | | | | +--------+---------+ + + + documented as of this encounter Visit Diagnoses Not on filedocumented in this encounter"
--- OUTSIDE RECORDS SUMMARY | ~2019-12-19 | XMS | Encounter Summary ---
Demographics + + + | Address | [address] | | | [place] [address] | + + + | Home Phone [...] + | Katalina Padilla | ECON | [address] | | | | | [place], [place] | | | | | [address] | | + + + + + | Ellie Vang | ECON | Unknown | | + + + + + Care Team Providers + +------+ + | Care Associate Account Manager Name | Role | Phone | [...] | 2015 | Review | Center at [facility] [address] | MD | Decision | | | | [address] | | | | | | Mailcode: [place] | | | | | | [facility] and | | | | | | [facility] 2 | | | | | | [place], [place] | | | | | | [address] | | | | | | [phone] | | | +--------+ + + + [...] [address] | | | | | | [place], [place] | | | | | | [address] | | | | | | [phone] | | | | | | | | +--------+---------+ + + + documented as of this encounter Visit Diagnoses Not on filedocumented in this encounter"
--- OUTSIDE RECORDS SUMMARY | ~2019-12-19 | XMS | Encounter Summary ---
Demographics + + + | Address | [address] | | | [place] [address] | + + + | Home Phone [...] + | aKtalina Padilla | ECON | [address] | | | | | [place], [place] | | | | | [address] | | + + + + + | Ellie Vang | ECON | Unknown | | + + + + + Care Team Providers + +------+ + | Care Paragliding Instructor Name | Role | Phone | + +------+ + | Fadi Goodrich DO | PCP | | + +------+ + Encounter Details +--------+ + + + + | Date | Type | Department | Care Team | Description | +--------+ + + + + | 12/12/ | Emergency | [facility] Emergency | | | | 2014 - | | Department [address] | | | | | [address] | | | | 05/20/ | | [facility] | | | | 2014 | | [place], [place] | | | | | | [address] | | | | | | [phone] | | | +--------+ + + + [...] [address] | | | | | | [place], [place] | | | | | | [address] | | | | | | [phone] | | | | | | | | +--------+---------+ + + + documented as of this encounter Visit Diagnoses Not on filedocumented in this encounter"
--- OUTSIDE RECORDS SUMMARY | ~2019-12-19 | XMS | Encounter Summary ---
Demographics + + + | Address | [address] | | | [place] [address] | + + + | Home Phone [...] Author + + + | Author | [facility] | + + + | Organization | [facility] | + + + | Address | Unknown | + + + | Phone | Unavailable | + + + Support + + + + + | Name | Relationship | Address | Phone | + + + + + | Katalina Padilla | ECON | [address] | | | | | [place], [place] | | | | | [address] | | + + + + + | Ellie Vang | ECON | Unknown | | + + + + + Care Team Providers + +------+ + | Care Chicken And Fish Butcher Name | Role | Phone | + +------+ + | Fadi Goodrich DO | PCP | | + +------+ + Encounter Details +--------+------+ + + + | Date | Type | Department | Care Team | Description | +--------+------+ + + + | 05/27/ | Lab | Laboratory at [facility] | | History of Frandy-en-Y | | 2017 | | [address] | | gastric bypass; | | | | [place], [place] | | Ventral hernia | | | | [address] | | without obstruction | | | | [phone] | | or gangrene; Mixed | | [...] Description | +--------+---------+ + + + | 08/20/ | Office | Cardiology | Socorro Frankshan, | | | 2019 | Visit | | [address] | | | | | | [facility] [place] | | | | | | [address] | | | | | | [phone] | | | | | | | [...] [facility] | [address] | [place] [address] | | | SERVICES, CORE | PARK [...] | + + + + + | [facility] | [address] | [place] [address] | | | LYDIA RANGEL | [address] | | | + [...] [facility] | | considered for monitoring long wall shear operator glycemic control in patients with: | LABORATORY [...] | + + + + + | [facility] | [address] | [place] [address] | | | SERVICES, SPECIAL | PARK [...] | | | | | determined by [email or web address] | | | | | | Laboratories. See | | | | | | Compliance Statement B: | | | | | | [employer].365Scores/CSPerformed | | | | | | by [employer],[address] | | | | | | [address] [facility],[place] | | | | | | [address] | | | | | | [phone].[email or web address]. | | | | | | com, [...] [facility] | [address] | [place], [place] | | | [facility] | | [address] | | + + + + + [...] | | | LABORATORY | | | ANDORRAN | | | SERVICES, | | | [...] [facility] | [address] | [place] [address] | | | SERVICES, CORE | PARK [...] [facility] | [address] | [place] [address] | | | SERVICES, CORE | PARK [...] | + + + + + | [facility] | [address] | [place] [address] | | | SERVICES, CORE | PARK [...] [facility] | [address] | [place] [address] | | | SERVICES, CORE | PARK [...] | New Reference Range effective 17. | [facility] | | | LABORATORY | | | CLAIRE, LYDIA | + + + + + + + + | Performing | Address | City/State/Zipcode | Phone Number | | Organization | | | | + + + + + | [facility] | [address] | [place] [address] | | | SERVICES, CORE | PARK [...] | + + + + + | [facility] | [address] | [place] [address] | | | SERVICES, LYDIA | [address] | | | + [...]
--- OUTSIDE RECORDS SUMMARY | ~2019-12-19 | XMS | Encounter Summary ---
Demographics + + + | Address | [address] | | | [place] [address] | + + + | Home Phone | | + + + | Preferred Language | Unknown | + + + | Marital Status | | + + + | Samaritan Affiliation | Unknown | + + + | Race | Unknown | + + + | Ethnic Group | Unknown | + + + Author + + + | Author | [facility] | | | and [place] | + + + | Organization | [facility] | | | and [place] | + + + | Address | Unknown | + + + | Phone | Unavailable | + + + Support + + +---------+ + | Name | Relationship | Address | Phone | + + +---------+ + | Katalina Padilla | ECON | Unknown | | + + +---------+ + | Ellie Hangrey | ECON | Unknown | | + + +---------+ + Care Team Providers + +------+ + | Care Banquet Houseperson Name | Role | Phone | + +------+ + PCP | Unavailable | + +------+ + Encounter Details +--------+ + + + + | Date | Type | Department | Care Team | Description | +--------+ + + + + | 02/14/ | Orders Only | [facility] | Augustine Fu MD | | | 2016 | | NEPHROLOGY [place] | [address] [facility] | | | | | [address] | [address] [facility] [place] | | | | | [place] | [address] | | | | | [address] | | | | | | [phone] | | | +--------+ + + + [...] | | | | | | [address] | | | | | | [place] [address] | | | | | | [phone] | | | | | | | | +--------+---------+ + + + documented as of this encounter Procedures + +--------+ + + + | Procedure Name | Priori | Date/Time | Associated Diagnosis | Comments | | | ty | | | | + +--------+ + + + | PROTIME INR | Routin | 02/15/2016 | | Results for this | | | e | 12:00 AM | | procedure are in the | | | | PDT | | results section. | + +--------+ + + + | DIGOXIN LEVEL | Routin | 02/15/2016 | | Results for this | | | e | 12:00 AM | | procedure are in the | | | | PDT | | results section. | + +--------+ + + + | BASIC METABOLIC | Routin | 02/15/2016 | | Results for this | | PANEL | e | 12:00 AM | | procedure are in the | | | | PDT | | results section. | + +--------+ + + + documented in this encounter Results Protime INR (02/15/2016 12:00 AM PDT) + + + + + + | Component | Value | Ref Range | Performed | Pathologist | | | | | At | Signature | + + + + + + | Prothrombin | 27.5 (A) | 11.7 - 14.4 | EXTERNAL | | | Time | | seconds | LAB | | + + + + + + | INR | 2.5 (A) | 0.8 - 1.3 | EXTERNAL | | | | | [...] | | | + +---------+ + + Digoxin Level (02/15/2016 12:00 AM PDT) + +-------+ + + + | Component | Value | Ref Range | Performed | Pathologist | | | | | At | Signature | + +-------+ + + + | Digoxin | 0.90 | 0.8 - 2.0 | EXTERNAL | | | level | | | LAB | | + [...] + +---------+ + + Basic Metabolic Panel (02/15/2016 12:00 AM PDT) + +---------+ + + + | Component | Value | Ref Range | Performed | Pathologist | | | | | At | Signature | + +---------+ + + + | Glucose, | 154 (A) | 70 - 100 mg/dL | EXTERNAL | | | Fasting | | | LAB | | + +---------+ + + + | BUN | 15 | 6 - 23 mg/dL | EXTERNAL | | | | | | LAB | | + +---------+ + + + | Creatinine | 0.78 | 0.60 - 1.35 | EXTERNAL | | | | | mg/dL | LAB | | + +---------+ + + + | BUN/Creatin | 19.2 | 6.0 - 28.6 | EXTERNAL | | | ine Ratio | | | LAB | | + +---------+ + + + | Calcium | 9.0 | 8.4 - 10.2 | EXTERNAL | [...] + + + | Anion Gap | 18.2 | 7 - 21 mmol/L | EXTERNAL | | | | | | LAB | | + +---------+ + + + | Estimated | 83 | mg/dL | EXTERNAL | | | [...]
--- OUTSIDE RECORDS SUMMARY | ~2019-12-19 | XMS | Encounter Summary ---
Demographics + + + | Address | [address] | | | [place] [address] | + + + | Home Phone [...] [place], [place] | | | | | [address] | | + + + + + | Ellie Vang | ECON | Unknown | | + + + + + Care Team Providers + +------+ + | Care Biofuels Production Manager Name | Role | Phone | + +------+ + | Fadi Michael DO | PCP | | + +------+ [...] Description | +--------+---------+ + + + | 06/23/ | Surgery | 6A Intra Op 3[address] | Kaleb Wilcox MD | UPPER ENDOSCOPY | | 2017 | | [facility] | [address] | | | | | Rd [facility] | [place], [place] | | | | | Hospital Admitting | [address] | | | | | Desk Located on the | [phone] | | | | | 9th floor | | | | | | [place], [place] | | | | | | [address] | | | +--------+---------+ + + + [...] the endoscopy department toll free ext. [phone] or After business hours or on weekends and holiday Hospital [employer] Teacher toll free ext. [phone] and have the GI doctor motion study analyst paged. The provider who performed your procedure is: Dr. Wilcox Results of your EGD: Dilation performed. You may resume your regular diet. Follow up Appointments with: Follow up with Dr. Pandey in bariatric surgery, thank you for choosing [facility]! Your primary care provider or referring provider [...] | | 0 | | | | [id number] | mouth two times | | | [...] 1-2 weeks for retreatment if symptoms persist. aleb Wilcox MD - 1 08/23/2017 2:35 PM PST PRE PROCEDURE NOTE: MR# [id number] Subjective: Elzbieta Cristina is a 43 y.o. [...] [place] | | | | | | [address] | | | | | | [phone] | | | | | | | [...] -----+ | MRN: | [facility] | | [id number] Date: 06/23/2018Patient Name: Elzbieta Curtis #: | MORGAN Y | | [id number] of : 1975CSN: [id number] Type: | | | AmbulatoryRoom: SORProcedure: Upper GI | | | endoscopyIndications: Nausea with vomiting, Status post | | | Fsxj-nj-IEkdgrgbhk: KALEB WILCOX MD (Doctor), JOSE | | | NASIMA Textile Stylist | | | (Textile Stylist)Referring MD: DANIELLE GARCÍAPRequestdonya | | | Provider: [...] | | | The Olympus [id number] Gastroscope #[id number] was | | | introduced through the [...] endoscope without resistance. The | | | enqhh-au-ufgqkfj limb was characterized by healthy appearing | [...] Initiated On: | | | 06/23/2018 3:58 [facility] Letter to: FADI MICHAEL DO | | | - Repeat upper endoscopy in 1-2 weeks for repeat | | | dilation if symptoms persist. | | |KALEB WILCOX MD | | |06/23/2018 5:17:38 PM | | |This report has been signed electronically. | | |Number of Addenda: 0 | | |Note Initiated On: 06/23/2018 3:58 PM | | |CC Letter to: | | | FADI MICHAEL DO | | + +--------- -----+ + +---------+ + + | Performing | Address | City/State/Zipcode | Phone Number | | Organization | | | | + +---------+ + + | [facility] | | | | + +---------+ + + CHELSEA-VALERIE HERNANDEZ (06/23/2018 2:11 PM PST) + + + [...] | IONIZED CA, | | mmol/L | [place] | | | POC | [...] [place] | [address] | [place], [place] | | | [facility] | [address] | [address] | | | TESTS | | | [...] PST | | | | | Starting 06/23/18 at 1532, | | | | | | | Until [facility] 06/24/18 at 0027, | | | [...] Until Thu06/24/18 at 0027, | | | hypopnea | | + +---+ | | | + +---+ | ondansetron (ZOFRAN) injection | | | 4 mg 4 mg, intravenous, | | | POSTPROCEDURE PRN, 1 dose, | | | Starting Thu06/23/18 at 1532, | | | Until Thu18 at 0027, | | | nausea/vomiting (greater [...] | | | PRN, 1 dose, Starting Wed | | | | | | | 06/23/18 at 1532, Until Wed | | | | | [...]
--- OUTSIDE RECORDS SUMMARY | ~2019-12-19 | XMS | Encounter Summary ---
Demographics + + + | Address | [address] | | | [place] [address] | + + + | Home Phone [...] + | Katalina Padilla | ECON | [address] | | | | | [place], [place] | | | | | [address] | | + + + + + | Ellie Vang | ECON | Unknown | | + + + + + Care Team Providers + +------+ + | Care Building Maintenance Mechanic Name | Role | Phone | + +------+ + | Fadi Goodrich DO | PCP | | + +------+ + Encounter Details +--------+ + + + + | Date | Type | Department | Care Team | Description | +--------+ + + + + | 07/06/ | Abstract | Digestive Health | Clinic, Surgery | | | 2016 | | [place] [address] [address] | | | | | | [address] | | | | | | Mailcode: [place] | | | | | | [facility] Health and | | | | | | [facility] 2 | | | | | | [place], [place] | | | | | | [address] | | | | | | [phone] | | | +--------+ + + + [...] [address] | | | | | | [place], [place] | | | | | | [address] | | | | | | [phone] | | | | | | | | +--------+---------+ + + + documented as of this encounter Visit Diagnoses Not on filedocumented in this encounter"
--- OUTSIDE RECORDS SUMMARY | ~2019-12-19 | XMS | Encounter Summary ---
Demographics + + + | Address | [address] | | | [place] [address] | + + + | Home Phone [...] + | Katalina Padilla | ECON | [address] | | | | | [place], [place] | | | | | [address] | | + + + + + | Ellie Vang | ECON | Unknown | | + + + + + Care Team Providers + +------+ + | Care Avionic Technician Name | Role | Phone | [...] | End General | | | | Diabetes & | Morbid | Kathy Feliciano, NEWSPAPER PRESS OPERATOR APPRENTICE | [address] | | | | Metabolism | obesity | [address] | Pavilion | | | | | (HCC) | [address], | Loop | | | | | Procedures | [address] | Physician's | | | | | CONSULT TO | [place], [place] | Pavilion | | | | | ENDO | [address] | Physician's | | | | | [address] | Phone: | Pavilion | | | | | [address] | [phone] | [place], [place] | | | | | | Fax: | [address] | | | | | | [phone] | Phone: | | | | | | | [phone] | | | | | | | Fax: | | | | | | | [phone] | +--------+--------+ + + + + Encounter Details +--------+ + + + + | Date | Type | Department | Care Team | Description | +--------+ + + + + | 11/15/ | Documentati | Digestive Health | Kathy Feldman, | | | 2012 | on | Center at [facility] [address] | NEWSPAPER PRESS OPERATOR APPRENTICE [address] | | | | | [address] | [facility] 350 | | | | | Mailcode: Center | [place], [place] | | | | | [facility] and | [address] | | | | | [facility] 2 | [phone] | | | | | [place], [place] | | | | | | [address] | | | | | | [phone] | | | +--------+ + + + [...] [address] | | | | | | [place], [place] | | | | | | [address] | | | | | | [phone] | | | | | | | | +--------+---------+ + + + documented as of this encounter Visit Diagnoses + + | Diagnosis | + + | Morbid obesity (HCC) - Primary Morbid obesity | + + documented in this encounter"
--- OUTSIDE RECORDS SUMMARY | ~2019-12-19 | XMS | Encounter Summary ---
Demographics + + + | Address | [address] | | | [place] [address] | + + + | Home Phone [...] + | Katalina Padilla | ECON | [address] | | | | | [place], [place] | | | | | [address] | | + + + + + [...] | HA Roldan | | | with DEVELOPMENTAL SPECIALIST | | hypertension | [address] | | | | | Right | [address] | [place] | | | | | heart | [place], [place] | [place], | | | | | failure | [address] | [place] | | | | | ([facility]) Type | Phone: | [address] | | | | | 2 diabetes | [phone] | | | | | | mellitus | Fax: | | | | | | without | [phone] | | | | | | complication | | | | | | | , with | | | | | | | long-term | | | | | | | current use | | | | | | | of insulin | | | | | | | ([facility]) | | | +--------+ + + + + + Encounter Details +--------+---------+ + + + | Date | Type | Department | Care Team | Description | +--------+---------+ + + + | 05/27/ | Office | Digestive Health | Tejas Cevallos, | History of Frandy-en-Y | | 2018 | Visit | Center at [facility] [address] | [address] [facility] | gastric bypass | | | | [facility] | [facility] [facility] [address] | (Primary Dx); | | | | for [employer] and | [place], [place] | 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[facility], [place] [address] | [address] | 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 Nutrition Counseling: Post-op Bariatric Surgery Follow-Up Patient referred by: Randell Franks MD [address] [place] [address] Documented time of visit: 2:36pm to 2:49 (13 minutes asmv-in-hgei with patient) Surgery: Gastric Bypass Date of [...] Medications since surgery: oral - appt with agricultural education professor on the Testing blood glucose: 92 mg/dl Objective: Ht [...] beef, cream of wheat, cream of mushroom, lao yogurt Fluid choices: water Supplementation: Flinstones, iron, [...] multivitamin & mineral (with iron) supplement, 2/day -9191-0393 mg calcium citrate with vitamin D/day (take in divided doses, not within 2 hour s of multivitamin or iron supplement) -500 mcg/day sublingual B12 supplement (or monthly injections) Continued to reinforce importance of mindful eating. Continue to increase physical activity. Follow up in 3 months or earlier as needed. Tejas Cevallos RD, LD Pager # [phone] signed by Tejas Cevallos RD at 05/27/2018 3:07 PM PDTdocument ed in this encounter Plan of Treatment +--------+---------+ + + + | Date | Type | Specialty | Care Team | Description | +--------+---------+ + + + | 03/15/ | Office | Cardiology | Randell Franks, | | | 2019 | Visit | | [address] | | | | | | [place], [place] | | | | | | [address] | | | | | | [phone] | | | | | | | | +--------+---------+ + + + documented as of this encounter Procedures + +--------+ + + + | Procedure Name | Priori | Date/Time | Associated Diagnosis | Comments | | | ty | | | | + +--------+ + + + | [facility] RE-ASSESS[facility] | Routin | 05/27/2018 | [...]
--- OUTSIDE RECORDS SUMMARY | ~2019-12-19 | XMS | Encounter Summary ---
Demographics + + + | Address | [address] | | | [place] [address] | + + + | Home Phone [...] + | Katalina Padilla | ECON | [address] | | | | | [place], [place] | | | | | [address] | | + + + + + | Ellie Vang | ECON | Unknown | | + + + + + Care Team Providers + +------+ + | Care Health Specialist Name | Role | Phone | [...] | +--------+ + + + + | 09/26/ | Abstract | Digestive Health | Chilo | Medical Records | | 2019 | | Center at [facility] [address] | MD Jor[address] | Review | | | | [address] | [facility] | | | | | Mailcode: Center | [place], [place] | | | | | [facility] and | [address] | | | | | [place] [address] | [phone] | | | | | [place], [place] | | | | | | [address] | | | | | | [phone] | | | +--------+ + + + [...] [address] | | | | | | [place] | | | | | | [address] | | | | | | [phone] | | | | | | | | +--------+---------+ + + + documented as of this encounter Visit Diagnoses Not on filedocumented in this encounter"
--- OUTSIDE RECORDS SUMMARY | ~2019-12-19 | XMS | Encounter Summary ---
Demographics + + + | Address | [address] | | | [place] [address] | + + + | Home Phone [...] [place], [place] | | | | | [address] | | + + + + + | Ellie Vang | ECON | Unknown | | + + + + + Care Team Providers + +------+ + | Care Advertising Statistical Clerk Name | Role | Phone | [...] [place] | | | | | | [address] | | | | | | [phone] | | | | | | | | +--------+---------+ + + + documented as of this encounter Visit Diagnoses Not on filedocumented in this encounter"
--- OUTSIDE RECORDS SUMMARY | ~2019-12-19 | XMS | Encounter Summary ---
Demographics + + + | Address | [address] | | | [place] [address] | + + + | Home Phone [...] + | Katalina Padilla | ECON | [address] | | | | | [place], [place] | | | | | [address] | | + + + + + | Ellie Vang | ECON | Unknown | | + + + + + Care Team Providers + +------+ + | Care Preventive Medicine Physician Name | Role | Phone | + +------+ + | Fadi Goodrich DO | PCP | | + +------+ + Encounter Details +--------+ + + + + | Date | Type | Department | Care Team | Description | +--------+ + + + + | 08/16/ | Abstract | Digestive Health | Kathy Feldman, | | | 2013 | | Center at [facility] [address] | [place] [place] | | | | | [address] | [facility] 350 | | | | | Mailcode: Center | [place], [place] | | | | | [facility] Health and | [address] | | | | | [facility] 2 | [phone] | | | | | [place], [place] | | | | | | [address] | | | | | | [phone] | | | +--------+ + + + [...] [address] | | | | | | [place], [place] | | | | | | [address] | | | | | | [phone] | | | | | | | | +--------+---------+ + + + documented as of this encounter Visit Diagnoses Not on filedocumented in this encounter"
--- OUTSIDE RECORDS SUMMARY | ~2019-12-19 | XMS | Encounter Summary ---
Demographics + + + | Address | [address] | | | [place] [address] | + + + | Home Phone [...] + | Katalina Padilla | ECON | [address] | | | | | [place], [place] | | | | | [address] | | + + + + + | Ellie Vang | ECON | Unknown | | + + + + + Care Team Providers + +------+ + | Care Roll Former Name | Role | Phone | [...] | Procedural Unit at | [address] | (06/23/18) | | | | [address] | [place], [place] | | | | | [address] | [address] | | | | | [address]co [address], | [phone] | | | | | [address] [facility], | | | | | | [place] [address] | | | | | | [phone] | | | +--------+ + + + [...] [place] | | | | | | [address] | | | | | | [phone] | | | | | | | | +--------+---------+ + + + documented as of this encounter Visit Diagnoses Not on filedocumented in this encounter"
--- OUTSIDE RECORDS SUMMARY | ~2019-12-19 | XMS | Encounter Summary ---
Demographics + + + | Address | [address] | | | [place] [address] | + + + | Home Phone [...] + | Katalina Padilla | ECON | [address] | | | | | [place], [place] | | | | | [address] | | + + + + + | Ellie Vang | ECON | Unknown | | + + + + + Care Team Providers + +------+ + | Care Night Shift Name | Role | Phone | + [...] Floor | | | | | | [facility] and | [place], [place] | | | | | | Healing, | [address] | | | | | | Building 2 | Phone: | | | | | | [place], [place] | [phone] | | | | | | [address] | Fax: | | | | | | Phone: | [phone] | | | | | | [phone] | | | | | | | Fax: | | | | | | | [phone] | | +--------+--------+ + + + + [...] | | | without | SURGICAL | [facility] | | | | | mention of | CL[address]IC [address] [place], | | | | | obstruction | [address] | [place] | | | | | or gangrene | AVE | [address] | | | | | | [place], | Phone: | | | | | | [place] [address] | [phone] | | | | | | Phone: | Fax: | | | | | | [phone] | [phone] | | | | | | Fax: | | | | | | | [phone] | | +--------+--------+ + + + + [...] | | | | [address] | [facility] | | | | | Mailcode: Center | [place], [place] | | | | | [facility] and | [address] | | | | | [facility] 2 | [phone] | | | | | [place], [place] | | | | | | [address] | | | | | | [phone] | | | +--------+---------+ + + + [...] colonoscopy), but a [facility] mentioned this was probably an incisional [...] [facility] Medicaid & [facility] Bariatric program for wt loss. 3. [...] material. 4. Continue to meet with her Rn Lpn Cna in the outpatient setting for diet and [...] has been instructed to f/u w/ her vat overhauler for a strict diet of <1000 kcal/d [...] teaching. Howie Faria MD MIS/Bariatric Fellow, Pager [phone] [facility] Attending provider: Hernandez Brian MD documented in this en counter Plan of Treatment +--------+---------+ + + + | Date | Type | Specialty | Care Team | Description | +--------+---------+ + + + | 03/15/ | Office | Cardiology | Randell Franks, | | | 2019 | Visit | | [address] | | | | | | [place], [place] | | | | | | [address] | | | | | | [phone] | | | | | | | [...] + +---------+ + + | [facility] DEPARTMENT OF | | | | | RADIOLOGY | | | | + +---------+ + + documented in this encounter Visit Diagnoses + + | Diagnosis | + + | Hernia - Primary Hernia of unspecified site of abdominal cavity without mention of | | obstruction or gangrene | + + documented in this encounter
--- OUTSIDE RECORDS SUMMARY | ~2019-12-19 | XMS | Encounter Summary ---
Demographics + + + | Address | [address] | | | [place] [address] | + + + | Home Phone [...] + | Katalina Padilla | ECON | [address] | | | | | [place], [place] | | | | | [address] | | + + + + + | Ellie Vang | ECON | Unknown | | + + + + + Care Team Providers + +------+ + | Care Prosthetic Assistant Name | Role | Phone | + +------+ + | Fadi Goodrich DO | PCP | | + +------+ + Encounter Details +--------+------+ + + + | Date | Type | Department | Care Team | Description | +--------+------+ + + + | 12/05/ | Lab | Laboratory at [facility] | | Type 2 diabetes | | 2013 | | [address] | | mellitus (HCC) | | | | [place], [place] | | | | | | [address] | | | | | | [phone] | | | +--------+------+ + + + [...] [address] | | | | | | [place], [place] | | | | | | [address] | | | | | | [phone] | | | | | | | [...] | + + + + + | [facility] | [address] | [place] [address] | | | SERVICES, SPECIAL | PARK [...]
--- OUTSIDE RECORDS SUMMARY | ~2019-12-19 | XMS | Encounter Summary ---
Demographics + + + | Address | [address] | | | [place] [address] | + + + | Home Phone [...] + | Katalina Padilla | ECON | [address] | | | | | [place], [place] | | | | | [address] | | + + + + + | Ellie Vang | ECON | Unknown | | + + + + + Care Team Providers + +------+ + | Care Bowling Floor Desk Clerk Name | Role | Phone | + +------+ + | Fadi Goodrich DO | PCP | | + +------+ + Encounter Details +--------+------+ + + + | Date | Type | Department | Care Team | Description | +--------+------+ + + + | 12/05/ | Lab | Laboratory at [facility] | | Type 2 diabetes | | 2013 | | [address] | | mellitus (HCC) | | | | [place], [place] | | | | | | [address] | | | | | | [phone] | | | +--------+------+ + + + [...] [place] | | | | | | [address] | | | | | | [phone] | | | | | | | [...] | + + + + + | [facility] | [address] | [place] [address] | | | SERVICES, SPECIAL | PARK [...]
--- OUTSIDE RECORDS SUMMARY | ~2019-12-19 | XMS | Encounter Summary ---
Demographics + + + | Address | [address] | | | [place] [address] | + + + | Home Phone [...] + | Katalina Padilla | ECON | [address] | | | | | [place], [place] | | | | | [address] | | + + + + + | Ellie Vang | ECON | Unknown | | + + + + + Care Team Providers + +------+ + | Care Fabric Cutter Name | Role | Phone | + +------+ + | Fadi Goodrich DO | PCP | | + +------+ + Encounter Details +--------+ + + + + | Date | Type | Department | Care Team | Description | +--------+ + + + + | 10/04/ | Abstract | Digestive Health | Hernandez Brian, | | | 2012 | | Center at [facility] [address] | MD [address] | | | | | [address] | [facility] | | | | | Mailcode: Center | [place], [place] | | | | | for Health and | [address] | | | | | [facility] 2 | [phone] | | | | | [place], [place] | | | | | | [address] | | | | | | [phone] | | | +--------+ + + + [...] [place] | | | | | | [address] | | | | | | [phone] | | | | | | | | +--------+---------+ + + + documented as of this encounter Visit Diagnoses Not on filedocumented in this encounter"
--- OUTSIDE RECORDS SUMMARY | ~2019-12-19 | XMS | Encounter Summary ---
Demographics + + + | Address | [address] | | | [place] [address] | + + + | Home Phone [...] + | Katalina Padilla | ECON | [address] | | | | | [place], [place] | | | | | [address] | | + + + + + | Ellie Vang | ECON | Unknown | | + + + + + Care Team Providers + +------+ + | Care Mechanical Drafter Name | Role | Phone | + [...] | 2015 | Visit | Center at [facility] [address] | [address] | (Primary Dx); | | | | [address] | [facility] [address] | 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for [employer] and | [place], [place] | with insulin therapy | | | | [facility] 2 | [address] | (HCC) | | | | [place], [place] | [phone] | | | | | [address] | | | | | | [phone] | | | +--------+---------+ + + + [...] of Visit: 1:30 to 1:55 (25 minutes xgzw-vn-ppga with patient). Pt seen tog ether with Rossana Espinoza RD (training) SUBJECTIVE: Working with RN to get access to Lessons Only water exercises. States she was down to 374lbs by following LRD but with complications (n/v, fainting) - need to obtain records from PCP [facility]. Food Allergies: No Current Physical Activity: Nothing - plans to start swimming this week Diet Recall [place] (100kcal) + Activia Light - 60kcal Atkins [...] post-surgery diet progression. 4. Call or send DNART LIMITADA message to dietitian with any questions. Contact information was provided. Follow up with dietitian via telephone 1 week after beginning water exercises for weight ch addie. Yuli Childs RD, [facility], LD Pager# [phone] Rossana Espinoza MS, RD Pgr #[phone] documented in this enco unter Plan of Treatment +--------+---------+ + + + | Date | Type | Specialty | Care Team | Description | +--------+---------+ + + + | 03/15/ | Office | Cardiology | Randell Franks, | | | 2019 | Visit | | MD [address] | | | | | | [place], [place] | | | | | | [address] | | | | | | [phone] | | | | | | | | +--------+---------+ + + + documented as of this encounter Procedures + +--------+ + + + | Procedure Name | Priori | Date/Time | Associated Diagnosis | Comments | | | ty | | | | + +--------+ + + + | [place] MNT RE-ASSESSMNT | Routin | 12/27/2014 | Morbid obesity | | | X15MIN | e | 8:17 AM | ([facility]) Diabetes | | | | | PDT | mellitus with | | | | | | insulin therapy | | | | | | ([facility]) | | + +--------+ + + + documented in this encounter Visit Diagnoses + + | Diagnosis | + + | Morbid obesity (HCC) - Primary Morbid obesity | + + | Diabetes mellitus with insulin therapy (HCC) | + + documented in this encounter
--- OUTSIDE RECORDS SUMMARY | ~2019-12-19 | XMS | Encounter Summary ---
Demographics + + + | Address | [address] | | | [place] [address] | + + + | Home Phone [...] [place], [place] | | | | | [address] | | + + + + + | Ellie Vang | ECON | Unknown | | + + + + + Care Team Providers + +------+ + | Care Payroll Supervisor Name | Role | Phone | [...] [id number] | | | | | | [facility] | | | | | | [place], [place] | | | | | | [address] | | | | | | [phone] | | | +--------+ + + + [...] [address] | | | | | | [place], [place] | | | | | | [address] | | | | | | [phone] | | | | | | | | +--------+---------+ + + + documented as of this encounter Visit Diagnoses Not on filedocumented in this encounter"
--- OUTSIDE RECORDS SUMMARY | ~2019-12-19 | XMS | Encounter Summary ---
Demographics + + + | Address | [address] | | | [place] [address] | + + + | Home Phone [...] + | Katalina Padilla | ECON | [address] | | | | | [place], [place] | | | | | [address] | | + + + + + | Ellie Vang | ECON | Unknown | | + + + + + Care Team Providers + +------+ + | Care Power Generation Technician Name | Role | Phone | [...] + + | 04/07/ | Hospital | Multi-Specialty | Tal Lund | | | 2019 | Encounter | Procedural Unit | MD Barb [address] | | | | | ([facility] at [facility] [address] [place], [place] | | | | | [address] | [address] | | | | | Mailcode: [place] | [phone] | | | | | for Health and | | | | | | Healing, [address] | | | | | | [place], [place] | | | | | | [address] | | | | | | [phone] | | | +--------+ + + + [...] Discharge Instructions Instructions Keerthi Bernard RN - 04/07/2019Home Care Instructions after EGD (Upper Endos copy) [...] hours or on weekends and holiday Hospital Power System Electrical Engineer toll free [phone]. [phone] and have the GI doctor manager labor relations paged. The provider who performed your procedure: [...] | | 0 | | | | [id number] | mouth two times | | | [...] from the original. PRE PROCEDURE NOTE: MR# [id number] Subjective: Elzbieta Cristina is a 44 y.o. [...] in th is encounter Plan of Treatment +--------+---------+ + + + | Date | Type | Specialty | Care Team | Description | +--------+---------+ + + + | 03/15/ | Office | Cardiology | Randell Franks, | | | 2019 | Visit | | MD [address] | | | | | | [place], [place] | | | | | | [address] | | | | | | [phone] | | | | | | | [...] + | MRN: | [facility] | | [id number] Date: 04/07/2019Patient Name: Elzbieta Curtis #: | ENDOSCOPY | | [id number] of : 1975CSN: [id number] Type: | | | AmbulatoryRoom: Endo 5Procedure: Upper GI | | | endoscopyIndications: Generalized abdominal pain, Nausea | | | with vomitingProviders: TAL LUND MD | | | (Doctor), KEERTHI BERNARD RN (Nurse), | | | [facility] (Auto Body Repair Teacher)Referring MD: SYLVIA Kilpatrick | | | Mela SAMPSON Provider: Medicines: | | | Midazolam 8 [...] | | | The Olympus [id number] Endoscope #[id number] | | | was introduced through the [...] | | ONCE, 1 dose, [facility] 04/07/19 at 1300 | | | | [...] 11:18 | | | | | Starting [facility] 04/07/19 at 1118, | | AM PDT | | | | | Until [facility] 04/07/19 at 1118 | | | | | | + +-------+ +--------+---+---+ +---+---+ | | | +---+---+ + +-------+ +-------+---+---+ | lidocaine viscous (XYLOCAINE | Given | 04/07/20 | 15 mL | | | | VISCOUS) 2 % mucosal solution | | 19 12:35 | | | | | Mouth/Throat, INTRAPROCEDURE PRN, | | PM PDT | | | | | Starting [facility] 04/07/19 at 1104, | | | | | | | Until [facility] 04/07/19 at 1235 | | | | [...]
--- OUTSIDE RECORDS SUMMARY | ~2019-12-19 | XMS | Encounter Summary ---
Demographics + + + | Address | [address] | | | [place] [address] | + + + | Home Phone [...] + | Katalina Padilla | ECON | [address] | | | | | [place], [place] | | | | | [address] | | + + + + + | Ellie Vang | ECON | Unknown | | + + + + + Care Team Providers + +------+ + | Care Charge Coordinator Name | Role | Phone | [...] | | | | | | [place], [place] | | | | | | [address] | | | | | | [phone] | | | +--------+ + + + [...] [address] | | | | | | [place], [place] | | | | | | [address] | | | | | | [phone] | | | | | | | | +--------+---------+ + + + documented as of this encounter Visit Diagnoses Not on filedocumented in this encounter"
--- OUTSIDE RECORDS SUMMARY | ~2019-12-19 | XMS | Encounter Summary ---
Demographics + + + | Address | [address] | | | [place] [address] | + + + | Home Phone | | + + + | Preferred Language | Unknown | + + + | Marital Status | | + + + | Protestant Affiliation | Unknown | + + + | Race | Unknown | + + + | Ethnic Group | Unknown | + + + Author + + + | Author | [facility] | | | and [place] | + + + | Organization | [facility] | | | and [place] [...] Team Providers + +------+ + | Care Ibm Websphere Commerce Developer Name | Role | Phone | + +------+ + PCP | Unavailable | + +------+ + Encounter Details +--------+ + + + + | Date | Type | Department | Care Team | Description | +--------+ + + + + | 10/20/ | Orders Only | [facility] | Conversion | | | 2017 | | NEPHROLOGY JESUS | Transaction, | | | | | [address] | Provider Unknown | | | | | [address] [place] [address] | | | | | | [address] | (Fax) | | | | | [phone] | | | +--------+ + + + [...] [address] | | | | | | [place] [address] | | | | | | [phone] | | | | | | | [...]
--- OUTSIDE RECORDS SUMMARY | ~2019-12-19 | XMS | Encounter Summary ---
Demographics + + + | Address | [address] | | | [place] [address] | + + + | Home Phone [...] + | Katalina Padilla | ECON | [address] | | | | | [place], [place] | | | | | [address] | | + + + + + | Ellie Vang | ECON | Unknown | | + + + + + Care Team Providers + +------+ + | Care Security Operations Analyst Name | Role | Phone | + +------+ + | Fadi Goodrich DO | PCP | | + +------+ + Encounter Details +--------+ + + + + | Date | Type | Department | Care Team | Description | +--------+ + + + + | 11/09/ | Abstract | Cardiology | Randell Franks, | | | 2014 | | Preventive at [facility] | MD [address] | | | | | [address] | [facility] [place] | | | | | Mailcode: CH9A | [address] | | | | | [facility] | [phone] | | | | | and Healing, | | | | | | [address] | | | | | | [facility] [place] | | | | | | [address] | | | | | | [phone] | | | +--------+ + + + [...] | | 2019 | Visit | | [address] | | | | | | [place], [place] | | | | | | [address] | | | | | | [phone] | | | | | | | | +--------+---------+ + + + documented as of this encounter Visit Diagnoses Not on filedocumented in this encounter"
--- OUTSIDE RECORDS SUMMARY | ~2019-12-19 | XMS | Encounter Summary ---
Demographics + + + | Address | [address] | | | [place] [address] | + + + | Home Phone [...] + | Katalina Padilla | ECON | [address] | | | | | [place], [place] | | | | | [address] | | + + + + + | Ellie Vang | ECON | Unknown | | + + + + + Care Team Providers + +------+ + | Care Manager Transfer Name | Role | Phone | + +------+ + | Fadi Goodrich DO | PCP | | + +------+ + Encounter Details +--------+ + + + + | Date | Type | Department | Care Team | Description | +--------+ + + + + | 11/06/ | Abstract | Digestive Health | Shereen Georges, | | | 2015 | | Center at [facility] [address] | ACNP [address] | | | | | [address] | [address] [place], [place] | | | | | Mailcode: [place] | [address] | | | | | for Health and | | | | | | [facility] [address] | | | | | | [facility] [place] | | | | | | [address] | | | | | | | [...] | | 2019 | Visit | | [address] | | | | | | [place], [place] | | | | | | [address] | | | | | | [phone] | | | | | | | | +--------+---------+ + + + documented as of this encounter Visit Diagnoses Not on filedocumented in this encounter"
--- OUTSIDE RECORDS SUMMARY | ~2019-12-19 | XMS | Encounter Summary ---
Demographics + + + | Address | [address] | | | [place] [address] | + + + | Home Phone | | + + + | Preferred Language | Unknown | + + + | Marital Status | | + + + | Mosque Affiliation | Unknown | + + + | Race | Unknown | + + + | Ethnic Group | Unknown | + + + Author + + + | Author | [facility] | | | and [place] | + + + | Organization | [facility] | | | and [...] Providers + +------+ + | Care Scrub Nurse Name | Role | Phone | + +------+ + PCP | Unavailable | + +------+ + Encounter Details +--------+ + + + + | Date | Type | Department | Care Team | Description | +--------+ + + + + | 02/17/ | Orders Only | [facility] | Provider, | Pure | | 2019 | | SYSTEM GENERIC OP | MD [address] | hyperglyceridemia; | | | | CONVERSION [address] | [address] | Hypokalemia; | | | | [address] [place], [place] | [place] [address] | Dehydration; | | | | [address] | | Hyperuricemia | | | | [phone] | | without signs of | | | | | | inflammatory | | | | | | arthritis and | | | | | | tophaceous disease; | | | | | | Essential (primary) | | | | | | hypertension | +--------+ + + + + Social [...] [address] | | | | | | [place] [address] | | | | | | [phone] | | | | | | | | +--------+---------+ + + + + +------+--------+ + + | Name | Type | Priori | Associated Diagnoses | Order Schedule | | | | ty | | | + +------+--------+ + + | Comprehensive | Lab | Routin | Pure | Expected: | | Metabolic Panel | | e | hyperglyceridemia | 04/26/2018, Expires: | | | | | Hypokalemia | 04/26/2019 | | | | | Dehydration | | + +------+--------+ + + | Lipid Panel | Lab | Routin | Pure | Expected: | | | | e | hyperglyceridemia | 04/26/2018, Expires: | | | | | | 04/26/2019 | + +------+--------+ + + | Renal Function Panel | Lab | Routin | Hypokalemia | Expected: | | | | e | Hyperuricemia | 12/06/2018, Expires: | | | | | without signs of | 12/02/2019 | | | | | inflammatory | | | | | | arthritis and | | | | | | tophaceous disease | | | | | | Essential (primary) | | | | | | hypertension | | + +------+--------+ + + | Magnesium | Lab | Routin | Hypokalemia | Expected: | | | | e | Hyperuricemia | 12/06/2018, Expires: | | | | | without signs of | 12/02/2019 | | | | | inflammatory | | | | | | arthritis and | | | | | | tophaceous disease | | | | | | Essential (primary) | | | | | | hypertension | | + +------+--------+ + + | CBC with | Lab | Routin | Hypokalemia | Expected: | | Differential | | e | Hyperuricemia | 12/06/2018, Expires: | | | | | without signs of | 12/02/2019 | | | | | inflammatory | | | | | | arthritis and | | | | | | tophaceous disease | | | | | | Essential (primary) | | | | | | hypertension | | + +------+--------+ + + | Parathyroid Hormone, | Lab | Routin | Hypokalemia | Expected: | | Intact | | e | Hyperuricemia | 12/06/2018, Expires: | | | | | without signs of | 12/02/2019 | | | | | inflammatory | | | | | | arthritis and | | | | | | tophaceous disease | | | | | | Essential (primary) | | | | | | hypertension | | + +------+--------+ + + | Uric Acid | Lab | Routin | Hypokalemia | Expected: | | | | e | Hyperuricemia | 12/06/2018, Expires: | | | | | without signs of | 12/02/2019 | | | | | inflammatory | | | | | | arthritis and | | | | | | tophaceous disease | | | | | | Essential (primary) | | | | | | hypertension | | + +------+--------+ + + | Protein/Creatinine | Lab | Routin | Hypokalemia | Expected: | | Ratio, Urine | | e | Hyperuricemia | 12/06/2018, Expires: | | | | | without signs of | 12/02/2019 | | | | | inflammatory | | | | | | arthritis and | | | | | | tophaceous disease | | | | | | Essential (primary) | | | | | | hypertension | | + +------+--------+ + + documented as of this encounter Visit Diagnoses + + | Diagnosis | + + | Pure hyperglyceridemia | + + | Hypokalemia Hypopotassemia | + + | Dehydration | + + | Hyperuricemia without signs of inflammatory arthritis and tophaceous disease Other | | abnormal blood chemistry | + + | Essential (primary) hypertension Unspecified essential hypertension | + + documented in this encounter"
--- OUTSIDE RECORDS SUMMARY | ~2019-12-19 | XMS | Encounter Summary ---
Demographics + + + | Address | [address] | | | [place] [address] | + + + | Home Phone [...] + | Katalina Padilla | ECON | [address] | | | | | [place], [place] | | | | | [address] | | + + + + + | Ellie Vang | ECON | Unknown | | + + + + + Care Team Providers + +------+ + | Care Evaluation Advisor Name | Role | Phone | [...] Center at [facility] [address] | ACNP [address] | gastric bypass | | | | [address] | Ave [place], [place] | (Primary Dx); | | | | Mailcode: Center | [address] | Ventral hernia | | | | for Health and | [phone] | without obstruction | | | | Healing, [address] | | or gangrene; Mixed | | | | [place], [place] | | hyperlipidemia; | | | | [address] | | 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[phone] | | type 2 without | | [...] is doing Refill oxycodone Rx +Take acid concrete carpenter for first 3 mos, then wean off [...] to POC and [facility] any issues. documented in this [...] times daily. , Disp: , Rfl: CALCIUM [id number] ORAL, Take 2 tablets by mouth two [...] Dr. Andie Brian Incisional hernia repair 03/01/2015 [facility]/ Dr. Cantu. Primary [...] History Narrative Updated 11/09/15 She lives in [place] with her mother and her sister (also her caregiver) lives in an apa rtment/duplex below. She has 2 grandchildren (age 4 and 7) who live with her daughter and son-in-law Her boyfriend lives in [place] HFpEF, DM2, HTN, Sleep Apnea (unable to [...] program here and refer her to our curatorial specialist who also has expertise in physical [...] Increase torsemide to pre-surgical dose +Take acid concrete carpenter for first 3 mos, then wean off [...] she will make an appointment with her Passenger Screener to discuss insulin dosing and CBGs 10. [...] to POC and will call or [facility] if any issues. Start time 15:35, end time 15:55. I spent a total of 20 minutes face to face with this pat ient. Over 50% of visit was in counseling. ~ 10 minutes of additional time spent reviewing chart prior to visit and documenting after this visit. Ronna Clarke DNP ACNP EMT INTERMEDIATE Bariatric Surgery Nurse Practitioner [facility] [place] | [address] | [place], [place] | [address] | documented in this e ncounter Plan of Treatment +--------+---------+ + + + | Date | Type | Specialty | Care Team | Description | +--------+---------+ + + + | 03/15/ | Office | Cardiology | Randell Franks, | | | 2019 | Visit | | [address] | | | | | | [place], [place] | | | | | | [address] | | | | | | [phone] | | | | | | | [...] | | cells No organisms seen | [place] | + + + + + + + + | Performing | Address | City/State/Zipcode | Phone Number | | Organization | | | | + + + + + | [facility] | [address] | [place] [address] | | | [place] | | | | + + + [...]
--- OUTSIDE RECORDS SUMMARY | ~2019-12-19 | XMS | Encounter Summary ---
Demographics + + + | Address | [address] | | | [place] [address] | + + + | Home Phone [...] [place], [place] | | | | | [address] | | + + + + + | Ellie Vang | ECON | Unknown | | + + + + + Care Team Providers + +------+ + | Care Doubler Operator Name | Role | Phone | [...] [address] | | | | | | [place], [place] | | | | | | [address] | | | | | | [phone] | | | | | | | | +--------+---------+ + + + documented as of this encounter Visit Diagnoses Not on filedocumented in this encounter"
--- OUTSIDE RECORDS SUMMARY | ~2019-12-19 | XMS | Encounter Summary ---
Demographics + + + | Address | [address] | | | [place] [address] | + + + | Home Phone [...] [place], [place] | | | | | [address] | | + + + + + | Ellie Vang | ECON | Unknown | | + + + + + Care Team Providers + +------+ + | Care Pulley Man Name | Role | Phone | + +------+ + | Fadi Goodrich DO | PCP | | + +------+ + Encounter Details +--------+ + + + + | Date | Type | Department | Care Team | Description | +--------+ + + + + | 07/06/ | Abstract | Digestive Health | Clinic, Surgery | | | 2016 | | [place] [address] [address] | | | | | | [address] | | | | | | Mailcode: [place] | | | | | | [facility] Health and | | | | | | [facility] 2 | | | | | | [place], [place] | | | | | | [address] | | | | | | [phone] | | | +--------+ + + + [...] [address] | | | | | | [place], [place] | | | | | | [address] | | | | | | [phone] | | | | | | | | +--------+---------+ + + + documented as of this encounter Visit Diagnoses Not on filedocumented in this encounter"
--- OUTSIDE RECORDS SUMMARY | ~2019-12-19 | XMS | Encounter Summary ---
Demographics + + + | Address | [address] | | | [place] [address] | + + + | Home Phone [...] + | Katalina Padilla | ECON | [address] | | | | | [place], [place] | | | | | [address] | | + + + + + | Ellie Vang | ECON | Unknown | | + + + + + Care Team Providers + +------+ + | Care Educational Resource Center Teacher Name | Role | Phone | + +------+ + | Fadi Goodrich DO | PCP | | + +------+ + Encounter Details +--------+ + + + + | Date | Type | Department | Care Team | Description | +--------+ + + + + | 12/29/ | Abstract | Digestive Health | [place] Brian, | | | 2012 | | Center at [facility] [address] | MD [address] | | | | | [address] | [facility] | | | | | Mailcode: [place] | [place], [place] | | | | | Health and | [address] | | | | | [facility] 2 | [phone] | | | | | [place], [place] | | | | | | [address] | | | | | | [phone] | | | +--------+ + + + [...] [address] | | | | | | [place], [place] | | | | | | [address] | | | | | | [phone] | | | | | | | | +--------+---------+ + + + documented as of this encounter Visit Diagnoses Not on filedocumented in this encounter"
--- OUTSIDE RECORDS SUMMARY | ~2019-12-19 | XMS | Encounter Summary ---
Demographics + + + | Address | [address] | | | [place] [address] | + + + | Home Phone [...] + | Katalina Padilla | ECON | [address] | | | | | [place], [place] | | | | | [address] | | + + + + + | Ellie Vang | ECON | Unknown | | + + + + + Care Team Providers + +------+ + | Care Physiotherapy Practice Manager Name | Role | Phone | [...] + | 01/01/ | Emergency | [facility] Emergency | Fide Hester | | | 2017 - | | Department [address] | MD [address]aza [address] [facility] | | | | | [address] | [address] | | | 01/02/ | | [facility] | [place], [place] | | | 2017 | | [place], [place] | [address] | | | | | [address] | [phone] | | | | | [phone] | | | | | | | Jaime Yee, | | | | | | ANP [address] | | | | | | [facility] [address] | | | | | | [place], [place] | | | | | | [address] | | | | | | [phone] | | | | | | | | | | | | Sheree Aguiar MD | | | | | | [address] | | | | | | [place], [place] | | | | | | [address] | | | | | | | | | | | | Felix Cardoza, | | | | | | AIR EXPORT OPERATIONS AGENT [address] | | | | | | [facility] [address] | | | | | | [place], [place] | | | | | | [address] | | | | | | [phone] | | | | | | | [...] for discharge. Thank you for choosing [facility] for your healthcare needs. Abdominal [...] living will and a durable power of ip attorney for health care. Bring a copy [...] apply lotions, perfume s, deodorants, or nail hong konger. Do not shave the surgical site yourself. [...] driving, and getting back to your [facility] routine. When should you call your doctor? [...] Repair: Before Your Surgery", log into your [employer] a ccount at [email or web address]. You can enter U288 in the "Bev[employer] Library" search box . Not on [employer]? Review the Kap[employer]t section of your After Visit Summary for directions on anjel aguero to sign up. Current as of: March 04, 2016 Content Version: 11.2 7331-4313 [employer]. Care instructions adapted under license by [facility] & [facility]. If you have questions about a medical condition or this instr uction, always ask your healthcare professional. [employer] disclaims any curly anty or liability for [...] changes in the way you eat. An legal recovery specialist to help you be more active [...] Prepare for Weight-Loss Surgery", log into your [employer] account at [email or web address]. You can enter C413 in the "Bev[employer] Library" s earch box. Not on [employer]? Review the [employer] section of your After Visit Summary for directions on anjel aguero to sign up. Current as of: May 08, 2016 Content Version: 11.2 [id number] [employer]. Care instructions adapted under license by [facility] & [facility]. If you have questions about a medical condition or this instr uction, always ask your healthcare professional. [employer] disclaims any curly anty or liability for [...] | | 0 | | | | [id number] | mouth two times | | | [...] Ball MD - 01/02/2017 7:49 AM PDT [facility] DEPARTMENT OF SURGERY EMERGENCY GENERAL SURGERY Division [...] wall hernias, laci hobbs was flown from [place] with abdominal pain from a recurrent, reducible [...] uss with Dr. Moore. Mary Ball MD [id number] [facility] Victor A [address] [facility] [place] [address] documented in this en counter Plan of Treatment +--------+---------+ + + + | Date | Type | Specialty | Care Team | Description | +--------+---------+ + + + | 03/15/ | Office | Cardiology | Randell Franks, | | | 2019 | Visit | | [address] | | | | | | [place], [place] | | | | | | [address] | | | | | | [phone] | | | | | | | [...] + | BG-LAC,POC ISTAT | Urgent | 01/01/2017 | | [...] + + + + + | [facility] | [address] | [place], [place] | | | [place] [facility] | [address] | [address] | | | TESTS | | | [...] equation recommended by the | [facility] | | National Kidney Disease [...] + + + + | [facility] | [address] | [place] [address] | | | LYDIA RANGEL | CLARENCE [...] KWAKU | [address] | [place], [place] | | | [place] [facility] | [facility] | [address] | | | TESTS | | | [...] | + + + + + | [facility] | [address] | [place] [address] | | | SERVICES, CORE | PARK [...] | + + + + + | [employer] | [address] | [place] [address] | | | SERVICES, CORE | CLARENCE [...] organisms may result in clinically misleading | [place] | | information due to the low numbers and /or mixture of organisms | | | present. Recollection is suggested if clinically indicated. | | + + + + + + + + | Performing | Address | City/State/Zipcode | Phone Number | | Organization | | | | + + + + + | [facility] - | [address] | [place] [address] | | | [place] | | | [...] [facility] | [address] | [place] [address] | | | CLAIRE, LYDIA | [address] | | | + + + + + ED BG-LAC,POC (01/01/2017 10:00 AM PDT) + + + + + + | Component | Value | Ref Range | Performed | Pathologist | | | | | At | Signature | + + + + + + | ED BG POC | 26 | 23 - 29 mmol/L | [facility] - | | | TC02 | | | [place] | | | | | | [facility] | | | | | | OF CARE | | | | | | TESTS | | + + + + + + | ED BG POC | 7.30 (L) | 7.35 - 7.45 | [facility] - | | | PH | | [...] AMES | [address] | [place], [place] | | | [facility] OF CARE | [address] | [address] | | | TESTS | | | [...] [facility] | [address] | [place] [address] | | | SERVICES, | [address] [...] | + + + + + | [facility] the [employer] [facility] | [address] | [place] [address] | | | SERVICES, | [address] [...] | + + + + + | [facility] | [address] | [place] [address] | | | SERVICES, CORE | CLARENCE [...] valves (2.5 - 3.5) INR APTT | SERVICES, CORE | | Therapeutic Range: (75 - 120) sec | | | Heparin levels of 0.35 - 0.7 U/mL | | + + + + + + + + | Performing | Address | City/State/Zipcode | Phone Number | | Organization | | | | + + + + + | [facility] | [address] | [place] [address] | | | SERVICES, CORE | PARK [...] | + + + + + | [facility] | [address] | [place] [address] | | | SERVICES, CORE | [address] | | | + + + + + ED INFORMATION EXCHANGE (01/01/2017 8:22 AM PDT) + + + + + + | Component | Value | Ref Range | Performed | Pathologist | | | | | At | Signature | + + + + + + | [facility] | [id number] | | [facility] | | | | [id number] | | MEDICAL | | | | [...] ---- | | | RADHA GOODRICH at [facility] | | | [facility] Unknown Primary Care | | | Unknown - Current Radha Goodrich DO | | | [phone] Primary Care | | | Unknown - Current | | + + + + + + + + | Performing | Address | City/State/Zipcode | Phone Number | | Organization | | | | + + + + + | [facility] | [address] | [place], [place] | [phone] | | [employer] | [address] | [address] | | + + + + + [...] mg 1,000 mg, oral, EVERY | | 9:08 | | | | | HOURS, First dose on Thu01/01/17 | | AM PDT | | | [...] TIMES DAILY | | | NEEDED, Starting Thu01/01/17 at | | | 1744, Until Thu01/02/17 at 1734, | | | anxiety | | + +---+ | | | + +---+ + +-------+ +-------+---+---+ | aspirin EC tablet 81 mg 81 mg, | Given | 01/03/20 | 81 mg | | | | oral, DAILY, First dose on Thu | | 17 8:51 | | | [...] rectal, | | | DAILY NEEDED, Starting [facility] | | | 01/01/17 at 2301, Until [...] mL, intravenous, NEEDED, | | | Starting [facility] 01/01/17 at 1751, | | | Until Thu01/02/17 [...] | | First dose on [facility] 01/01/17 at 2100, | | | | [...] | EVERY 72 HOURS, First dose on Thu | | [...] 17 6:19 | | | | | [facility] 01/01/17 at 1830 | | PM PDT | | | | + +-------+ +-------+---+---+ +---+---+ | | | +---+---+ + +-------+ +--------+---+---+ | gabapentin (NEURONTIN) capsule | Given | 01/03/20 | 300 mg | | | | 300 mg 300 mg, oral, FOUR TIMES | | 17 8:51 | | | | | DAILY, First dose on Jasmyne 01/01/17 | | AM PDT | | [...] mg, intramuscular, | | | NEEDED, Starting [facility] 01/01/17 at | | | 1751, Until Thu01/02/17 at 1734, | | | CBG less than 70 mg/dL per Adult | | | Hypoglycemia Protocol | | + +---+ | | | + +---+ | glucose chewable tablet 16 g | | | 16 g, oral, NEEDED, Starting | | | [facility] 01/01/17 at 1751, Until Thu | | [...] DAILY, First dose on Jasmyne | | | 01/01/17 at 2200, Until | | | Discontinued | | + +---+ | | | + +---+ + +-------+ +--------+---+---+ | magnesium oxide (MAG-OX) tablet | Given | 01/03/20 | 400 mg | | | | 400 mg 400 mg, oral, DAILY, | | 17 8:51 | | | | | First dose on Jasmyne 01/01/17 at 1944, | | AM PDT | | | [...] AM PDT | | | | | [facility] 01/01/17 at 1944, Until | | | | | | [...] | | | | | Starting Jasmyne 6/8/17 at 1900, | | | | | [...] | | ONCE, 1 dose, [facility] 01/01/17 at 0945 | | AM PDT [...]
--- OUTSIDE RECORDS SUMMARY | ~2019-12-19 | XMS | Encounter Summary ---
Demographics + + + | Address | [address] | | | [place] [address] | + + + | Home Phone [...] [place], [place] | | | | | [address] | | + + + + + | Ellie Vang | ECON | Unknown | | + + + + + Care Team Providers + +------+ + | Care Enginehouse Brakeman Name | Role | Phone | + +------+ + | Fadi Goodrich DO | PCP | | + +------+ + Encounter Details +--------+ + + + + | Date | Type | Department | Care Team | Description | +--------+ + + + + | 03/02/ | Abstract | Digestive Health | Hernandez Brian, | | | 2012 | | Center at [facility] [address] | MD [address] | | | | | [address] | [facility] | | | | | Mailcode: Jamul | [place], [place] | | | | | [facility] and | [address] | | | | | [facility], [facility] | [phone] | | | | | [place], [place] | | | | | | [address] | | | | | | [phone] | | | +--------+ + + + [...] [address] | | | | | | [place], [place] | | | | | | [address] | | | | | | [phone] | | | | | | | | +--------+---------+ + + + documented as of this encounter Visit Diagnoses Not on filedocumented in this encounter"
--- OUTSIDE RECORDS SUMMARY | ~2019-12-19 | XMS | Encounter Summary ---
Demographics + + + | Address | [address] | | | [place] [address] | + + + | Home Phone [...] [place], [place] | | | | | [address] | | + + + + + | Ellie Vang | ECON | Unknown | | + + + + + Care Team Providers + +------+ + | Care Poster Name | Role | Phone | + +------+ + | Kenyatta Cardenas MD | PCP | | + +------+ + Reason for Visit + + + | Reason | Comments | + + + | Refill Request | PHENTERMINE 37.5 mg | + + + | Refill Request | | + + + Encounter Details +--------+ + + + + | Date | Type | Department | Care Team | Description | +--------+ + + + + | 08/28/ | Telephone | Cardiology in | Randell Franks, | Refill Request | | 2019 | | [facility] | [address] | (PHENTERMINE 37.5 mg | | | | [place] at | [place], [place] | ); Refill Request | | | | [place] [address] | [address] | | | | | [facility] | [phone] | | | | | [facility] | | | | | | [place], [place] | | | | | | [address] | | | | | | [phone] | | | +--------+ + + + [...] [address] | | | | | | [place], [place] | | | | | | [address] | | | | | | [phone] | | | | | | | | +--------+---------+ + + + documented as of this encounter Visit Diagnoses Not on filedocumented in this encounter"
--- OUTSIDE RECORDS SUMMARY | ~2019-12-19 | XMS | Encounter Summary ---
Demographics + + + | Address | [address] | | | [place] [address] | + + + | Home Phone [...] [place], [place] | | | | | [address] | | + + + + + | Ellie Vang | ECON | Unknown | | + + + + + Care Team Providers + +------+ + | Care Track Inspector Name | Role | Phone | [...] | | | | | | [place], [place] | | | | | | [address] | | | | | | [phone] | | | +--------+ + + + [...] [address] | | | | | | [place], [place] | | | | | | [address] | | | | | | [phone] | | | | | | | | +--------+---------+ + + + documented as of this encounter Visit Diagnoses Not on filedocumented in this encounter"
--- OUTSIDE RECORDS SUMMARY | ~2019-12-19 | XMS | Encounter Summary ---
Demographics + + + | Address | [address] | | | [place] [address] | + + + | Home Phone [...] [place], [place] | | | | | [address] | | + + + + + | Ellie Vang | ECON | Unknown | | + + + + + Care Team Providers + +------+ + | Care Manager Drive Name | Role | Phone | + [...] from Patient; | | 2017 | | [place] [address] | MD [address] | Postoperative | | | | Ave Mailcode: CH4S | [place], [place] | infection | | | | [facility] | [address] | | | | | and Healing, | [phone] | | | | | [place] [address] [facility] | | | | | | [place], [place] | | | | | | [address] | | | | | | [phone] | | | +--------+ + + + [...] [place] | | | | | | [address] | | | | | | [phone] | | | | | | | | +--------+---------+ + + + documented as of this encounter Visit Diagnoses Not on filedocumented in this encounter"
--- OUTSIDE RECORDS SUMMARY | ~2019-12-19 | XMS | Encounter Summary ---
Demographics + + + | Address | [address] | | | [place] [address] | + + + | Home Phone [...] + | Katalina Padilla | ECON | [address] | | | | | [place], [place] | | | | | [address] | | + + + + + | Ellie Vang | ECON | Unknown | | + + + + + Care Team Providers + +------+ + | Care Fund Controller Name | Role | Phone | [...] | | 2017 | | Preventive at [facility] | MD [address] | | | | | [address] | [place], [place] | | | | | Mailcode: [address]A | [address] | | | | | [facility] | [phone] | | | | | and [facility], | | | | | | [address] | | | | | | [place], [place] | | | | | | [address] | | | | | | [phone] | | | +--------+ + + + [...] | | 2019 | Visit | | [address] | | | | | | [place], [place] | | | | | | [address] | | | | | | [phone] | | | | | | | | +--------+---------+ + + + documented as of this encounter Visit Diagnoses Not on filedocumented in this encounter"
--- OUTSIDE RECORDS SUMMARY | ~2019-12-19 | XMS | Encounter Summary ---
Demographics + + + | Address | [address] | | | [place] [address] | + + + | Home Phone [...] [place], [place] | | | | | [address] | | + + + + + | Ellie Vang | ECON | Unknown | | + + + + + Care Team Providers + +------+ + | Care Composition Worker Name | Role | Phone | [...] | | | | | Procedures | [place], [place] | | | | | | TRANST[place]AC[place] | [address] | | | | | | C | Phone: | | | | | | ECHOCARDIOGR | [phone] | | | | | | AM, ADULT | Fax: | | | | | | | [phone] | | +--------+--------+ + + + + [...] | 2016 | Visit | Preventive at [facility] | [address] | exertion) (Primary | | | | [address] | [place], [place] | Dx) | | | | Mailcode: CH9A | [address] | | | | | [facility] | [phone] | | | | | and [place], | | | | | | [address] | | | | | | [place], [place] | | | | | | [address] | | | | | | [phone] | | | +--------+---------+ + + + [...] visit: Follow-up T2DM and weight management PCP: Afdi Walker, DO Patient Active Problem List Diagnosis [...] 500 mg by mouth once daily. CALCIUM CRB&MLS-[id number]-GENIS ORAL Take 1 tablet by mouth two [...] himself to the local hospit al in [place] and so this has been delayed. ROS: [...] to lose the additional weight requested by [facility]. This current weight regain [...] [address] | | | | | | [place], [place] | | | | | | [address] | | | | | | [phone] | | | | | | | [...]
--- OUTSIDE RECORDS SUMMARY | ~2019-12-19 | XMS | Encounter Summary ---
Demographics + + + | Address | [address] | | | [place] [address] | + + + | Home Phone [...] [place], [place] | | | | | [address] | | + + + + + | Ellie Vang | ECON | Unknown | | + + + + + Care Team Providers + +------+ + | Care Medical Services Assistant Name | Role | Phone | [...] [address] | | | | | | [place], [place] | | | | | | [address] | | | | | | [phone] | | | | | | | | +--------+---------+ + + + documented as of this encounter Visit Diagnoses Not on filedocumented in this encounter"
--- OUTSIDE RECORDS SUMMARY | ~2019-12-19 | XMS | Encounter Summary ---
Demographics + + + | Address | [address] | | | [place] [address] | + + + | Home Phone [...] [place], [place] | | | | | [address] | | + + + + + | Ellie Vang | ECON | Unknown | | + + + + + Care Team Providers + +------+ + | Care Plug Sorter Name | Role | Phone | [...] | | | | | | | [facility] | | | | | | | Health and | | | | | | | Healing, | | | | | | | [address] | | | | | | | [place], [place] | | | | | | | [address] | | | | | | | Phone: | | | | | | | [phone] | | | | | | | Fax: | | | | | | | [phone] | +--------+--------+ + + + + Encounter Details +--------+---------+ + + + | Date | Type | Department | Care Team | Description | +--------+---------+ + + + | 08/28/ | Office | Digestive Health | [address] | Morbid obesity (HCC) | | 2015 | Visit | Center at [facility] [address] | [address] | (Primary Dx); Type | | | | [facility] | [address] [facility], | 2 diabetes mellitus | | | | for Health and | [place] [address] | (HCC) | | | | [facility] | | | | | | [place], [place] | | | | | | [address] | | | | | | [phone] | | | +--------+---------+ + + + [...] of Visit: 12:29 to 12:57 (28 minutes [id number] with patient) SUBJECTIVE: Trying to follow a [...] post-surgery diet progression. 4. Call or send [employer] message to dietitian with any questions. Contact information was provided. Follow up with dietitian prior to surgery to review post-surgical recommendations. Yuli Childs RD, CNSC, LD Pager# [phone] documented in this enco unter Plan of Treatment +--------+---------+ + + + | Date | Type | Specialty | Care Team | Description | +--------+---------+ + + + | 03/15/ | Office | Cardiology | Randell Franks, | | | 2019 | Visit | | [address] | | | | | | [place], [place] | | | | | | [address] | | | | | | [phone] | | | | | | | | +--------+---------+ + + + documented as of this encounter Procedures + +--------+ + + + | Procedure Name | Priori | Date/Time | Associated Diagnosis | Comments | | | ty | | | | + +--------+ + + + | DC MNT RE-ASSESSMNT | Routin | 08/28/2014 | Morbid obesity | | | X15MIN | e | 4:45 PM | ([facility]) Type 2 | | | | | PST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 | | | | | | ([facility]) | | + +--------+ + + + documented in this encounter Visit Diagnoses + + | Diagnosis | + + | Morbid obesity ([facility]) - Primary Morbid obesity | + + | Type 2 diabetes mellitus ([facility]) Type II or unspecified type diabetes mellitus without | | mention of complication, not stated as uncontrolled | + + documented in this encounter
--- OUTSIDE RECORDS SUMMARY | ~2019-12-19 | XMS | Encounter Summary ---
Demographics + + + | Address | [address] | | | [place] [address] | + + + | Home Phone [...] [place], [place] | | | | | [address] | | + + + + + | Ellie Vang | ECON | Unknown | | + + + + + Care Team Providers + +------+ + | Care Rug Inspector Helper Name | Role | Phone | [...] | | | [address] | [place], [place] | | | | | [address] | [address] | | | | | [address], | [phone] | | | | | [address] [facility], | | | | | | [place] [address] | | | | | | [phone] | | | +--------+ + + + [...] [place] | | | | | | [address] | | | | | | [phone] | | | | | | | | +--------+---------+ + + + documented as of this encounter Visit Diagnoses Not on filedocumented in this encounter"
--- OUTSIDE RECORDS SUMMARY | ~2019-12-19 | XMS | Encounter Summary ---
Demographics + + + | Address | [address] | | | [place] [address] | + + + | Home Phone | | + + + | Preferred Language | Unknown | + + + | Marital Status | | + + + | Cheondoism Affiliation | Unknown | + + + | Race | Unknown | + + + | Ethnic Group | Unknown | + + + Author + + + | Author | [facility] | | | and [place] | + + + | Organization | [facility] | | | and [...] Team Providers + +------+ + | Care Recording Studio Internship Name | Role | Phone | + +------+ + PCP | Unavailable | + +------+ + Encounter Details +--------+ + + + + | Date | Type | Department | Care Team | Description | +--------+ + + + + | 08/31/ | Hospital | [facility] | Erich Wells | | | 2004 | Encounter | MED CTR SLEEP | MD [address] | | | | | CENTER [address] | [address] [place] | | | | | [place], [place] | [place] [address] | | | | | [address] | [phone] | | | | | [phone] | | | +--------+ + + + [...] [address] | | | | | | [place] [address] | | | | | | [phone] | | | | | | | | +--------+---------+ + + + documented as of this encounter Visit Diagnoses Not on filedocumented in this encounter"
--- OUTSIDE RECORDS SUMMARY | ~2019-12-19 | XMS | Encounter Summary ---
Demographics + + + | Address | [address] | | | [place] [address] | + + + | Home Phone [...] [place], [place] | | | | | [address] | | + + + + + | Ellie Vang | ECON | Unknown | | + + + + + Care Team Providers + +------+ + | Care Penal Officer Name | Role | Phone | [...] + + + + | 08/19/ | Anesthesia | 6A Intra Op 3181 | Andie Hope MD | | | 2019 | Event | [address] | [address] | | | | | [facility] | Lesly Gutiérrez [place], | | | | | Hospital Admitting | [place] [address] | | | | | Desk Located on the | [phone] | | | | | 9th floor | | | | | | [place], [place] | [place], | | | | | [address] | CORPORATE LAW ASSISTANT [address] | | | | | | [address] | | | | | | [facility] [place] | | | | | | [address] | | | | | | [phone] | | | | | | | | +--------+ + + + + Anesthesia Record + + + + + | Procedure Name | Responsible | Anesthesia Start | Anesthesia Stop Time | | | Anesthesiologist | Time | | + + + + + | OPEN VENTRAL HERNIA | Andie Hope MD | 08/19/19 1417 | 08/19/19 9415 | | REPAIR (N/A ) | | | | + + + + + +----+---+ + + | Da | T | Event | Comment | | te | i | | | | | m | | | | | e | | | +----+---+ + + | 01 | 1 | Eq Check | Anesthesia machine checked Equipment verified | | /2 | 4 | | | | 4/ | 1 | | | | 20 | 7 | | | | 20 | | | | +----+---+ + + | | 1 | Preprocedur | Pt ID confirmed, informed consent obtained, insertion site | | | 4 | e Checklist | marked, equipment available | | | 1 | | | | | 7 | | | +----+---+ + + | | 1 | An Start | | | | 4 | | | | | 1 | | | | | 7 | | | +----+---+ + + | | 1 | An Start | | | | 4 | Data | | | | 1 | | | | | 7 | | | +----+---+ + + | | 1 | Vitals | Monitors applied Vital signs checked Patient ready for anesthesia | | | 4 | Checked | | | | 3 | | | | | 0 | | | +----+---+ + + | | 1 | ETT | | | | 4 | | | | | 3 | | | | | 5 | | | +----+---+ + + | | 1 | Abx | | | | 4 | Administere | | | | 4 | d | | | | 4 | | | +----+---+ + + | | 1 | Ready | | | | 4 | | | | | 4 | | | | | 9 | | | +----+---+ + + | | 1 | Timeout | | | | 4 | | | | | 5 | | | | | 7 | | | +----+---+ + + | | 1 | Incision | | | | 4 | | | | | 5 | | | | | 8 | | | +----+---+ + + | | 1 | AN | | | | 5 | Recruitment | | | | 4 | Breath | | | | 4 | | | +----+---+ + + | | 1 | AN | | | | 6 | Recruitment | | | | 0 | Breath | | | | 4 | | | +----+---+ + + | | 1 | Intraop and | - Patient/Allergies/Procedure - Relevant PMH - Relevant data | | | 6 | Med | (labs/imaging) - Anesthetic (airway, infusions, drug redoses) - | | | 4 | Handoff | Lines/Drains - I/O - Current Phase and significant events - | | | 8 | | Emergence/dispo plans, post-op concerns Hydromorphone 1mg | +----+---+ + + | | 1 | Surgery end | | | | 7 | | | | | 1 | | | | | 8 | | | +----+---+ + + | | 1 | An Extubate | Neuromuscular function Intact. Pharynx suctioned. Patient obeys | | | 7 | | commands. Adequate pulmonary mechanics. | | | 2 | | | | | 0 | | | +----+---+ + + | | 1 | an stop | | | | 7 | data | | | | 2 | | | | | 2 | | | +----+---+ + + | | 1 | PACU Rpt | | | | 7 | Given | | | | 3 | | | | | 5 | | | +----+---+ + + | | 1 | Anesthesia | | | | 7 | End | | | | 3 | | | | | 5 | | | +----+---+ + + | | 1 | Post-Op | | | | 9 | Page | | | | 0 | | | | | 0 | | | +----+---+ + + +------+ | Meds | +------+ + + + | Name | Total | + + + | propofol (DIPRIVAN) 200 mg | 180 mg | + + + | rocuronium | 80 mg | + + + | lidocaine 2% | 60 mg | + + + | fentaNYL | 250 mcg | + + + | midazolam | 2 mg | + + + | dexamethasone | 4 mg | + + + | ondansetron | 4 mg | + + + | glycopyrrolate | 0.6 mg | + + + | neostigmine | 3 mg | + + + | ePHEDrine | 10 mg | + + + | ceFAZolin | 3,000 mg | + + + | dexMEDEtomidine (PRECEDEX) 400 | 142.04 mcg | | mcg in sodium chloride (NS) 0.9 % | | | 100 mL (4 mcg/mL) IV infusion | | + + + | HYDROmorphone | 1 mg | + + + | LR bolus | 1,300 mL | + + + + + | Name | + + | O2 FR Avance (Total Liters) | + + | Air FR Avance (l/min) | + + | Insp Sevo | + + | Et Sevo | + + | Insp N2O % | + + | O2 Flow Rate (Total Liters) | + + | Air Flow rate (L/min) | + + + + | No blood administrations on file. | + + +--------+ + + + | Type | Details | Placement | Removal | +--------+ + + + | Incisi | 08/19/19; Left; abdomen | 08/19/19 0000 by | | | on | | Angelica Ga RN | | +--------+ + + + | Incisi | 08/19/19; abdomen | 08/19/19 0000 by | | | on | | Angelica Ga RN | | +--------+ + + + | Periph | 08/19/19; Left; Dorsal; Hand; | 08/19/19 0000 by | 08/23/19 1109 by | | eral | 08/23/19; 1109; Removed by | Merary Osorio RN | Cyndi Ward RN | | IV | patient | | | +--------+ + + + | Urethr | 08/19/19; 1430; Duncan Ga RN; 1; | 08/19/19 1430 by | 08/20/19 0955 by | | jordon | Magui; 16 Fr.; 10 mL; 08/20/19; | Angelica Ga RN | Arnulfo Goodman CNA | | Mahin | 0955; Per order | | | | er | | | | +--------+ + + + | ETT | 08/19/19; 1435 (created via | 08/19/19 1435 by | 08/19/19 1720 by | | | procedure documentation); [place] | [place], | Sheree Herrmann, | | | [place]; Endotracheal | CORPORATE LAW ASSISTANT | CORPORATE LAW ASSISTANT | | | Tube; 7.5; Oral; Cuffed; | | | | | 08/19/19; 1720 | | | +--------+ + + + [...] [address] | | | | | | [place], [place] | | | | | | [address] | | | | | | [phone] | | | | | | | | +--------+---------+ + + + documented as of this encounter Procedures + +--------+ + + + | Procedure Name | Priori | Date/Time | Associated Diagnosis | Comments | | | ty | | | | + +--------+ + + + | ANE ETT | Routin | 08/19/2019 | | Results for this | | | e | 3:26 PM | | procedure are in the | | | | PST | | results section. | + +--------+ + + + documented in this encounter Results ETT (08/19/2019 3:26 PM PST) + + + | Narrative | Performed At | + + + | [place] CRNA 08/19/2019 3:28 PM AIRWAY MANAGEMENT - | | | ETT Time of Placement: 08/19/2019 2:35 PM Intubation Reason: For | | | surgical procedure Positioning: Supine Location Performed:OR | | | OXYGENATION Patient was preoxygenated Apneic oxygenation Grade: | | | Grade 1 - Ventilated by mask Induction:Routine INTUBATION | | | ATTEMPT 1 Blade Type: Mario Blade #: 3 Laryngoscopic View: | | | Grade I ETT DETAILS ETT Type:Standard, Hi-Lo Cuffed Intubation | | | Type: Oral Cuff Status: Cuffed Size: 7.5 Depth at Lip: 23 cm | | | Airway Leak: No CONFIRMATION airway not difficult Number of | | | Attempts: 1 Atraumatic placement Positive for EtCO2:Waveform | | | capnography Breath Sounds: Bilateral and equal NARRATIVE | | | Attending was physically present for the critical portions of the | | | procedure as described in the procedure note Attending/Authorizing | | | Provider: Andie Hope MD Performing Provider: [place] CRNA | | | | | + + + documented in this encounter Visit Diagnoses Not on filedocumented in this encounter Administered Medications + +--------+ + +------+------+ | Medication Order | MAR | Action | Dose | Rate | Site | | | Action | Date | | | | + +--------+ + +------+------+ | ceFAZolin (ANCEF) injection | Given | 08/19/19 | 3,000 mg | | | | INTRAPROCEDURE PRN, Starting Fri | | 20 2:44 | | | | | 08/19/19 at 1444, Until Fri | | PM PST | | | | | 08/19/19 at 1735 | | | | | | + +--------+ + +------+------+ +---+---+ | | | +---+---+ + +-------+ +------+---+---+ | dexamethasone (DECADRON) | Given | 08/19/19 | 4 mg | | | | injection intravenous, | | 20 3:11 | | | | | INTRAPROCEDURE PRN, Starting Fri | | PM PST | | | | | 08/19/19 at 1511, Until Fri | | | | | | | 08/19/19 at 1735 | | | | | | + +-------+ +------+---+---+ +---+---+ | | | +---+---+ + + + + +-------+---+ | dexMEDEtomidine (PRECEDEX) 400 | Rate/Dos | 08/19/19 | 0.3 | 9.02 | | | mcg in sodium chloride (NS) 0.9 % | e Change | 20 4:12 | mcg/kg/h | mL/hr | | | 100 mL (4 mcg/mL) IV infusion | | PM PST | r | | | | INTRAPROCEDURE CONTINUOUS PRN, | | | | | | | Starting 08/19/19 at 1440, | | | | | | | Until 08/19/19 at 1735 | | | | | | + + + + +-------+---+ +---------+ + +--------+---+ | New Bag | 08/19/19 | 0.5 | 15.03 | | | | 20 2:40 | mcg/kg/h | mL/hr | | | | PM PST | r | | | +---------+ + +--------+---+ +---+---+ | | | +---+---+ + +-------+ +-------+---+---+ | ePHEDrine injection | Given | 08/19/19 | 10 mg | | | | intravenous, INTRAPROCEDURE PRN, | | 20 4:06 | | | | | Starting 08/19/19 at 1606, | | PM PST | | | | | Until 08/19/19 at 1735 | | | | | | + +-------+ +-------+---+---+ +---+---+ | | | +---+---+ + +-------+ +--------+---+---+ | fentaNYL (SUBLIMAZE) injection | Given | 08/19/19 | 50 mcg | | | | intravenous, INTRAPROCEDURE PRN, | | 20 4:45 | | | | | Starting 08/19/19 at 1435, | | PM PST | | | | | Until 08/19/19 at 1735 | | | | | | + +-------+ +--------+---+---+ +-------+ +--------+---+---+ | Given | 08/19/19 | 50 mcg | | | | | 20 3:30 | | | | | | PM PST | | | | +-------+ +--------+---+---+ | Given | 08/19/19 | 50 mcg | | | | | 20 2:58 | | | | | | PM PST | | | | +-------+ +--------+---+---+ +---+---+ | | | +---+---+ + +-------+ +--------+---+---+ | glycopyrrolate (ROBINUL) | Given | 08/19/19 | 0.6 mg | | | | injection intravenous, | | 20 5:02 | | | | | INTRAPROCEDURE PRN, Starting Fri | | PM PST | | | | | 08/19/19 at 1702, Until Fri | | | | | | | 08/19/19 at 1735 | | | | | | + +-------+ +--------+---+---+ +---+---+ | | | +---+---+ + +-------+ +--------+---+---+ | HYDROmorphone (DILAUDID) | Given | 08/19/19 | 0.5 mg | | | | injection INTRAPROCEDURE PRN, | | 20 5:32 | | | | | Starting 08/19/19 at 1732, | | PM PST | | | | | Until 08/19/19 at 1735 | | | | | | + +-------+ +--------+---+---+ +-------+ +--------+---+---+ | Given | 08/19/19 | 0.5 mg | | | | | 20 5:22 | | | | | | PM PST | | | | +-------+ +--------+---+---+ +---+---+ | | | +---+---+ + + + +---+---+---+ | lactated ringers (LR) bolus | given by | 08/19/19 | | | | | INTRAPROCEDURE CONTINUOUS PRN, | | 20 5:32 | | | | | Starting 08/19/19 at 1358, | anesthes | PM PST | | | | | Until 08/19/19 at 1735 | iology | | | | | + + + +---+---+---+ + + +---+---+---+ | given by anesthesiology | 08/19/19 | | | | | | 20 4:46 | | | | | | PM PST | | | | + + +---+---+---+ | New Bag | 08/19/19 | | | | | | 20 1:58 | | | | | | PM PST | | | | + + +---+---+---+ +---+---+ | | | +---+---+ + +-------+ +-------+---+---+ | lidocaine PF (XYLOCAINE MPF) 20 | Given | 08/19/19 | 60 mg | | | | mg/mL (2 %) injection | | 20 2:35 | | | | | INTRAPROCEDURE PRN, Starting Fri | | PM PST | | | | | 08/19/19 at 1435, Until Fri | | | | | | | 08/19/19 at 1735 | | | | | | + +-------+ +-------+---+---+ +---+---+ | | | +---+---+ + +-------+ +------+---+---+ | midazolam (PF) (VERSED) | Given | 08/19/19 | 2 mg | | | | injection intravenous, | | 20 2:17 | | | | | INTRAPROCEDURE PRN, Starting Fri | | PM PST | | | | | 08/19/19 at 1417, Until Fri | | | | | | | 08/19/19 at 1735 | | | | | | + +-------+ +------+---+---+ +---+---+ | | | +---+---+ + +-------+ +------+---+---+ | neostigmine (PROSTIGMIN) | Given | 08/19/19 | 3 mg | | | | INTRAPROCEDURE PRN, Starting Fri | | 20 5:02 | | | | | 08/19/19 at 1702, Until Fri | | PM PST | | | | | 08/19/19 at 1735 | | | | | | + +-------+ +------+---+---+ +---+---+ | | | +---+---+ + +-------+ +------+---+---+ | ondansetron (ZOFRAN) injection | Given | 08/19/19 | 4 mg | | | | intravenous, INTRAPROCEDURE PRN, | | 20 4:49 | | | | | Starting 08/19/19 at 1649, | | PM PST | | | | | Until 08/19/19 at 1735 | | | | | | + +-------+ +------+---+---+ +---+---+ | | | +---+---+ + +---------+ +--------+---+---+ | propofol (DIPRIVAN) 200 mg | New Bag | 08/19/19 | 180 mg | | | | intravenous, INTRAPROCEDURE | | 20 2:35 | | | | | CONTINUOUS PRN, Starting Fri | | PM PST | | | | | 08/19/19 at 1435, Until Fri | | | | | | | 08/19/19 at 1735 | | | | | | + +---------+ +--------+---+---+ +---+---+ | | | +---+---+ + +-------+ +-------+---+---+ | rocuronium injection | Given | 08/19/19 | 10 mg | | | | intravenous, INTRAPROCEDURE PRN, | | 20 4:10 | | | | | Starting 08/19/19 at 1435, | | PM PST | | | | | Until 08/19/19 at 1735 | | | | | | + +-------+ +-------+---+---+ +-------+ +-------+---+---+ | Given | 08/19/19 | 20 mg | | | | | 20 3:25 | | | | | | PM PST | | | | +-------+ +-------+---+---+ | Given | 08/19/19 | 50 mg | | | | | 20 2:35 | | | | | | PM PST | | | | +-------+ +-------+---+---+ +---+---+ | | | +---+---+ documented in this encounter"
--- OUTSIDE RECORDS SUMMARY | ~2019-12-19 | XMS | Encounter Summary ---
Demographics + + + | Address | [address] | | | [place] [address] | + + + | Home Phone [...] [place], [place] | | | | | [address] | | + + + + + | Ellie Vang | ECON | Unknown | | + + + + + Care Team Providers + +------+ + | Care Lens Grinder Rough Name | Role | Phone | + [...] 03/22/ | Committee | Digestive Health | Ryamond Gilman, | Committee Review | | 2015 | Review | Center at [facility] [address] | MD | Decision | | | | [address] | | | | | | Mailcode: [place] | | | | | | [facility] and | | | | | | [facility] [address] | | | | | | [place], [place] | | | | | | [address] | | | | | | [phone] | | | +--------+ + + + [...] [address] | | | | | | [place], [place] | | | | | | [address] | | | | | | [phone] | | | | | | | | +--------+---------+ + + + documented as of this encounter Visit Diagnoses Not on filedocumented in this encounter"
--- OUTSIDE RECORDS SUMMARY | ~2019-12-19 | XMS | Encounter Summary ---
Demographics + + + | Address | [address] | | | [place] [address] | + + + | Home Phone [...] + | Katalina Padilla | ECON | [address] | | | | | [place], [place] | | | | | [address] | | + + + + + | Ellie Vang | ECON | Unknown | | + + + + + Care Team Providers + +------+ + | Care Fruit Sorter Name | Role | Phone | [...] | | 2015 | | Center at [facility] [address] | [address] | | | | | [facility] | Lesly [address], | | | | | [facility] and | [place] [address] | | | | | [place] [address] | | | | | | [place], [place] | | | | | | [address] | | | | | | [phone] | | | +--------+ + + + [...] [address] | | | | | | [place], [place] | | | | | | [address] | | | | | | [phone] | | | | | | | | +--------+---------+ + + + documented as of this encounter Visit Diagnoses Not on filedocumented in this encounter"
--- OUTSIDE RECORDS SUMMARY | ~2019-12-19 | XMS | Encounter Summary ---
Demographics + + + | Address | [address] | | | [place] [address] | + + + | Home Phone [...] + | Katalina Padilla | ECON | [address] | | | | | [place], [place] | | | | | [address] | | + + + + + | Ellie Vang | ECON | Unknown | | + + + + + Care Team Providers + +------+ + | Care Financial Advisor Trainee Name | Role | Phone | + [...] | | | | | | | [address] | | | [address] | [address] | | | | | | | Physicians | | | | | | | Pavilion, [address]nd | | | | | | | Floor | | | | | | | [place], [place] | | | | | | | [address] | | | | | | | Phone: | | | | | | | [phone] | | | | | | | Fax: | | | | | | | [phone] | +--------+--------+ + + + + Encounter [...] | | | [facility] [address] [facility] [address] | or gangrene (Primary | | | | [address] | [place], [place] | Dx) | | | | Physicians [place], | [address] | | | | | 2nd Floor | [phone] | | | | | [facility] [place] | | | | | | [address] | | | | | | [phone] | | | +--------+---------+ + + + [...] Rocha MD,MPH - 11/05/2015 2:09 PM PDT [facility] Department of Surgery EGS/TRAUMA Surgery Clinic [...] 500 mg by mouth once daily. CALCIUM [id number]-[id number] ORAL Take 1 tablet by mouth two [...] risk of complication. ASSESSMENT AND PLAN: Elzbieta Crsitina is a 40 y.o. female s/p previous [...] were answered. Christian Rocha MD MPH FACS [facility] rags laborer Trauma, Critical Care & Acute Care Surgery [facility] [place] [phone] documented in thi s encounter Plan of Treatment +--------+---------+ + + + | Date | Type | Specialty | Care Team | Description | +--------+---------+ + + + | 03/15/ | Office | Cardiology | Randell Franks, | | | 2019 | Visit | | [address] | | | | | | [place], [place] | | | | | | [address] | | | | | | [phone] | | | | | | | | +--------+---------+ + + + documented as of this encounter Visit Diagnoses + + | Diagnosis | + + | Ventral hernia without obstruction or gangrene - Primary Ventral hernia, unspecified, | | without mention of obstruction or gangrene | + + documented in this encounter"
--- OUTSIDE RECORDS SUMMARY | ~2019-12-19 | XMS | Encounter Summary ---
Demographics + + + | Address | [address] | | | [place] [address] | + + + | Home Phone [...] + | Katalina Padilla | ECON | [address] | | | | | [place], [place] | | | | | [address] | | + + + + + | Ellie Vang | ECON | Unknown | | + + + + + Care Team Providers + +------+ + | Care Tube Buffer Name | Role | Phone | + [...] | | | | | | | [place] [facility] | | | | | | | [facility] and | | | | | | | Healing, | | | | | | | [address] | | | | | | | [place], [place] | | | | | | | [address] | | | | | | | Phone: | | | | | | | [phone] | | | | | | | Fax: | | | | | | | [phone] | +--------+--------+ + + + + Encounter Details +--------+---------+ + + + | Date | Type | Department | Care Team | Description | +--------+---------+ + + + | 06/16/ | Office | Digestive Health | Shereen Georges, | Morbid obesity with | | 2012 | Visit | Center at [facility] [address] | ACNP [address] | BMI of 70 and over, | | | | [address] | Ave [place], [place] | adult (HCC) (Primary | | | | Mailcode: Center | [address] | Dx); Vitamin D | | | | for Health and | | deficiency disease; | | | | Healing, [address] | | Intertriginous | | | | [place], [place] | | candidiasis; | | | | [address] | | Diabetes mellitus | | | [...] Psychological Evaluation: If your referral is at [facility], pain management will call irma riggs [...] the time. If your referral is at [facility], they will call y ou in the next week to schedule. She will arrange 8. Nephrology Consult: Please call [facility] ([phone]) and have them send you a urine specimen container. You will need to discuss your kidney stone risk with a nephrology provid er prior to proceeding with gastric bypass. If your referral is at [facility], they will call you in the [...] at the same time: betsy Feldman RN, [facility]- Nurse Practitioner for Bariatric Surgery [facility] | [address] | [place], [place] | [address] | Potential Contraindications to Bariatric Surgery Age [...] other providers does not guarantee that the [facility] Bariatric Surger y program will deem you a surgical candidate. documented in this encounter Progress Notes Shereen Pinto ACNP - 06/16/2013 1:28 PM PSTFormatting of this note might be different fro m the original. BARIATRIC INITIAL VISIT Provider: Shereen Pinto DNP, DANIELLEP, SUPERVISOR ALUMINUM BOAT ASSEMBLY Referring Provider: Dr. Fadi Goodrich, [place] [phone] Reason for Requested Consultation: Initial evaluation for bariatric surgery. Elzbieta Farooq is interested in Frandy en y alfredo tomeka bypass. The pt is here With her sister. Following surgery her mother and sister will care for her, she will Stay in [place] after surgery so that she is close by. She lives in [place]. They have few stairs to get into [...] recently gained weight, she met with our licensed life and health agent today, she has been making poor food [...] none Use of Redux or Phen/fen: no Hoahaoism or cultural reason you would refuse blood [...] mg Oral tablet extended release 24 hr, Goledn e 3 mg by mouth once daily [...] as well , hypertension, hyperlipidemia. Denies CHF, PA, ischemic heart disease, DVT/PE, or pulmonary hypertension. [...] PCP Date TSH uIU/ml Normal Impression: Ms farooq is a 38 yo female who meets [...] the therapy. 8. Nephrology Consult: Please call [email or web address] ([phone]) and have them send you a urine specimen container. You will need to discuss your kidney stone risk with a nephrology provid er prior to proceeding with gastric bypass. If your referral is at [facility], they will call you in the next week to schedule. You are at increased risk of renal stones after surgery, with your history of stone, we want to check of oxalate in your urine. You will need a referral to a delivery clerk If your level is elevated. 9. See [...] soon as possible Shereen Pinto DNP ACNP, SUPERVISOR ALUMINUM BOAT ASSEMBLY Nurse Practitioner for Bariatric Surgery [facility] | [address] | [place] | [address] | Potential Contraindications to Bariatric Surgery Age [...] other providers does not guarantee that the [facility] Bariatric Surger y program will deem [...] [address] | | | | | | [place], [place] | | | | | | [address] | | | | | | [phone] | | | | | | | [...] | | | | | | by [facility],[address] | | | | | | [address] [place] | | | | | | [address] | | | | | | [phone] | | | | | | [place], [place], | | | | | [...] at | | | | | | [employer] | | | | | | developed and | | | | | | characteristics | | | | | | determined by | | | | | | [facility]. See | | | | | | Compliance Statement B: | | | | | | Stilnest/CS | | | | + + + + + + + + | Specimen | + + | Blood - Blood | + + + + + + + | Performing | Address | City/State/Zipcode | Phone Number | | Organization | | | | + + + + + | [facility] | [address] | [place], [place] | | | [facility] | | [address] | | + + + + + [...]
--- OUTSIDE RECORDS SUMMARY | ~2019-12-19 | XMS | Encounter Summary ---
Demographics + + + | Address | [address] | | | [place] [address] | + + + | Home Phone [...] + | Katalina Padilla | ECON | [address] | | | | | [place], [place] | | | | | [address] | | + + + + + | Ellie Vang | ECON | Unknown | | + + + + + Care Team Providers + +------+ + | Care Lead Pourer Name | Role | Phone | [...] | | Alma Delia Mailcode: [facility] | [facility] | | | | | [facility] | [place], [place] | | | | | and Healing, | [address] | | | | | [place] [address] [facility] | [phone] | | | | | Floor [place], [place] | | | | | | [address] | | | | | | [phone] | | | +--------+ + + + [...] | | 2019 | Visit | | [address] | | | | | | [place], [place] | | | | | | [address] | | | | | | [phone] | | | | | | | | +--------+---------+ + + + documented as of this encounter Visit Diagnoses Not on filedocumented in this encounter"
--- OUTSIDE RECORDS SUMMARY | ~2019-12-19 | XMS | Encounter Summary ---
Demographics + + + | Address | [address] | | | [place] [address] | + + + | Home Phone [...] [place], [place] | | | | | [address] | | + + + + + | Ellie Vang | ECON | Unknown | | + + + + + Care Team Providers + +------+ + | Care Oil Sprayer Name | Role | Phone | + [...] [place] | | | | | | [address] | | | | | | [phone] | | | | | | | | +--------+---------+ + + + documented as of this encounter Visit Diagnoses Not on filedocumented in this encounter"
--- OUTSIDE RECORDS SUMMARY | ~2019-12-19 | XMS | Encounter Summary ---
Demographics + + + | Address | [address] | | | [place] [address] | + + + | Home Phone [...] + | Katalina Padilla | ECON | [address] | | | | | [place], [place] | | | | | [address] | | + + + + + | Ellie Vang | ECON | Unknown | | + + + + + Care Team Providers + +------+ + | Care Tailor Helper Name | Role | Phone | [...] Diabetes & | Morbid | Kathy M, HOT METAL MIXER OPERATOR HELPER | [address] | | | | Metabolism | obesity | [address] | [address]ilion | | | | | (HCC) | [address], | Loop | | | | | Procedures | [address] | Physician's | | | | | CONSULT TO | [place], [place] | Pavilion | | | | | ENDO | [address] | Physician's | | | | | [address] | Phone: | Pavilion | | | | | | [phone] | [place], [place] | | | | | | Fax: | [address] | | | | | | [phone] | Phone: | | | | | | | [phone] | | | | | | | Fax: | | | | | | | [phone] | +--------+--------+ + + + + Encounter [...] | | | Center at Physicians | [place], [place] | (Primary Dx); Morbid | | | | [address] | [address] | obesity (HCC) | | | | [address] | [phone] | | | | | Physician's Pavilion | | | | | | Physician's | | | | | | Pavilion [place], | | | | | | [place] [address] | | | | | | [phone] | | | +--------+---------+ + + + [...] Flannery | | | | | | [place], [place] | | | | | | [address] | | | | | | [phone] | | | | | | | [...]
--- OUTSIDE RECORDS SUMMARY | ~2019-12-19 | XMS | Encounter Summary ---
Demographics + + + | Address | [address] | | | [place] [address] | + + + | Home Phone [...] + | Katalina Padilla | ECON | [address] | | | | | [place], [place] | | | | | [address] | | + + + + + | Ellie Vang | ECON | Unknown | | + + + + + Care Team Providers + +------+ + | Care Web Services Manager Name | Role | Phone | [...] | | | | | bypass | [place], | [facility], | | | | | Nausea and | [place] | 10th Floor | | | | | vomiting, | [address] | [place], [place] | | | | | intractabili | Phone: | [phone] | | | | | ty of | | Phone: | | | | | vomiting not | Fax: | [phone] | | | | | specified, | [phone] | Fax: | | | | | unspecified | | [phone] | | | | | vomiting | [...] | | | | | | [place] | | | | | | | CT SCAN OF | | | | | | | ABDOMEN | | | | | | | [place] | | | | | | [...] | | | | | bypass | [place], | [facility], | | | | | Nausea and | [place] | 10th Floor | | | | | vomiting, | [address] | [place], [place] | | | | | intractabili | Phone: | [phone] | | | | | ty of | | Phone: | | | | | vomiting not | Fax: | [phone] | | | | | specified, | [phone] | Fax: | | | | | unspecified | | [phone] | | | | | vomiting | [...] | | | | | | [place] | | | | | | | CT SCAN OF | | | | | | | ABDOMEN | | | | | | | [place] | | | | | | [...] | 2019 | Encounter | Services at [facility] | AGACNP [address] | | | | | [address] | Alma Delia [place], [place] | | | | | Lesly Gutiérrez [facility] | [address] | | | | | [address] | [phone] | | | | | [place], [place] | | | | | | [address] | | | | | | [phone] | | | +--------+ + + + [...] | | 0 | | | | CRB&ETU-A9-AFB73-GEN | mouth two times | | | [...] Flannery | | | | | | [place], [place] | | | | | | [address] | | | | | | [phone] | | | | | | | [...]
--- OUTSIDE RECORDS SUMMARY | ~2019-12-19 | XMS | Encounter Summary ---
Demographics + + + | Address | [address] | | | [place] [address] | + + + | Home Phone [...] + | Katalina Padilla | ECON | [address] | | | | | [place], [place] | | | | | [address] | | + + + + + | Ellie Vang | ECON | Unknown | | + + + + + Care Team Providers + +------+ + | Care International Account Manager Name | Role | Phone [...] | | 2019 | | Preventive at [facility] | MD [address] | stop any | | | | [address] | [place], [place] | medications? ) | | | | Mailcode: Mihaela | [address] | | | | | [facility] | [phone] | | | | | and Healing, | | | | | | [address] | | | | | | [place], [place] | | | | | | [address] | | | | | | [phone] | | | +--------+ + + + [...] | | | | | | [place], [place] | | | | | | [address] | | | | | | [phone] | | | | | | | | +--------+---------+ + + + documented as of this encounter Visit Diagnoses Not on filedocumented in this encounter"
--- OUTSIDE RECORDS SUMMARY | ~2019-12-19 | XMS | Encounter Summary ---
Demographics + + + | Address | [address] | | | [place] [address] | + + + | Home Phone [...] [place], [place] | | | | | [address] | | + + + + + | Ellie Vang | ECON | Unknown | | + + + + + Care Team Providers + +------+ + | Care Chicken Catcher Name | Role | Phone | + [...] | | 2019 | | Center at [facility] [address] | MD Jorje [address] | Review | | | | Jacy Flannery | [facility] | | | | | Mailcode: Center | [place], [place] | | | | | [facility] and | [address] | | | | | [place] [address] | [phone] | | | | | [place], [place] | | | | | | [address] | | | | | | [phone] | | | +--------+ + + + [...] Flannery | | | | | | [place] | | | | | | [address] | | | | | | [phone] | | | | | | | | +--------+---------+ + + + documented as of this encounter Visit Diagnoses Not on filedocumented in this encounter"
--- OUTSIDE RECORDS SUMMARY | ~2019-12-19 | XMS | Encounter Summary ---
Demographics + + + | Address | [address] | | | [place] [address] | + + + | Home Phone | | + + + | Preferred Language | Unknown | + + + | Marital Status | | + + + | Mandaeism Affiliation | Unknown | + + + | Race | Unknown | + + + | Ethnic Group | Unknown | + + + Author + + + | Author | [facility] | | | and Jeffana | + + + | Organization | [facility] | | | and Jeffana | [...] Providers + +------+ + | Care Foreign Diplomat Name | Role | Phone | + +------+ + PCP | Unavailable | + +------+ + Encounter Details +--------+ + + + + | Date | Type | Department | Care Team | Description | +--------+ + + + + | 11/20/ | Orders Only | [facility] | Conversion | | | 2017 | | NEPHROLOGY JESUS | Transaction, | | | | | [address] | Provider Unknown | | | | | [address] [place] | | | | | | [address] | (Fax) | | | | | [phone] | | | +--------+ + + + [...] RICHEY | | | | | | [place] [address] | | | | | | [phone] | | | | | | | [...]
--- OUTSIDE RECORDS SUMMARY | ~2019-12-19 | XMS | Encounter Summary ---
Demographics + + + | Address | [address] | | | [place] [address] | + + + | Home Phone | | + + + | Preferred Language | Unknown | + + + | Marital Status | | + + + | Roman Catholic Affiliation | Unknown | + + + | Race | Unknown | + + + | Ethnic Group | Unknown | + + + Author + + + | Author | [facility] | | | and [place]ana | + + + | Organization | [facility] | | | and Jeffana [...] Team Providers + +------+ + | Care Gastroenterology Manager Name | Role | Phone | [...] Closed | | Audiology | Diagnoses | Damari, | Jasmina, | | | | | Audio and | Shamar Feliciano MD | MS Sherron | | | | | tymps fax | [address] | [facility] [address] | | | | | report/no | [address], [address] | [address] | | | | | previous | [place], | [address] [place] | | | | | audiogram | [place] [address] | [place], [place] | | | | | Procedures | Phone: | [address] Phone: | | | | | OFFICE VISIT | [phone] | [phone] | | | | | REGULAR | Fax: | Fax: | | | | | | [phone] | [phone] | +--------+--------+ + + + + Encounter Details +--------+---------+ + + + | Date | Type | Department | Care Team | Description | +--------+---------+ + + + | 05/26/ | Office | [facility] [place] | Sherron Freedman MS | Normal hearing noted | | 2019 | Visit | AUDIOLOGY AND | CCC-A [address] | on examination | | | | [facility] | [address] [facility] [place] | (Primary Dx); | | | | [address] | [place] [address] | Pressure sensation | | | | [address] [place] | [phone] | in both ears | | | | [place] [address] | | | | | | [phone] | | | +--------+---------+ + + + [...] | 03/05/ | Office | Cardiology | Adarsh Sulema | | | 2019 | Visit | | [address] | | | | | | [address] | | | | | | [place] [address] | | | | | | [phone] | | | | | | | [...]
--- OUTSIDE RECORDS SUMMARY | ~2019-12-19 | XMS | Encounter Summary ---
Demographics + + + | Address | [address] | | | [place] [address] | + + + | Home Phone [...] [place], [place] | | | | | [address] | | + + + + + | Ellie Vang | ECON | Unknown | | + + + + + Care Team Providers + +------+ + | Care Commodity Director Name | Role | Phone | [...] | | | | | (HCC) | [place], [place] | Hospital, | | | | | Procedures | [address] | 10th Floor | | | | | CT ABDOMEN & | Phone: | [place], [place] | | | | | [address] | | [address] | | | | | IV CONTRAST | Fax: | Phone: | | | | | [address] | [phone] | [phone] | | | | | ABDOMEN&PELV | | Fax: | | | | | IS | | [phone] | | | | | W/CONTRAST | [...] | | | | | | | [facility] | | | | | | | Health and | | | | | | | Healing, | | | | | | | Building [address] | | | | | | | [place], [place] | | | | | | | [address] | | | | | | | Phone: | | | | | | | [phone] | | | | | | | Fax: | | | | | | | [phone] | +--------+--------+ + + + + Encounter Details +--------+---------+ + + + | Date | Type | Department | Care Team | Description | +--------+---------+ + + + | 10/02/ | Office | Digestive Health | Shereen Georges, | Abdominal pain | | 2015 | Visit | Center at [facility] [address] | ACNP [address] | (Primary Dx); Morbid | | | | [address] | Ave [place], [place] | obesity (HCC) | | | | Mailcode: [place] | [address] | | | | | [facility] and | [phone] | | | | | [facility] 2 | | | | | | [place], [place] | | | | | | [address] | | | | | | [phone] | | | +--------+---------+ + + + [...] up in th e air, Use a fine hairer.... And get it really dry. Then use corn starch ..... Then use medicated powder... Please go to the 3rd floor for the study... [place] [address] documented in this encounter Progress Notes Shereen Pinto ACNP - 10/02/2014 11:14 AM PDTFormatting of this note might be different fro m the original. BARIATRIC INITIAL VISIT Provider: Shereen Pinto DNP, ACNP, DIRECTOR TARGETED MARKETING Referring Provider: Dr. Goodrich Reason for Requested [...] x2 midline transverse wound s/p open appendectomy 2011 Ventral hernia repair 10/2012 Dr. Andie Brian [...] with the surgeon. Shereen Pinto DNP, ACNP, DIRECTOR TARGETED MARKETING Nurse Practitioner for Bariatric Surgery [facility] | [address] | [place], [place] | [address] | Potential Contraindications to Bariatric Surgery Age [...] other providers does not guarantee that the [facility] Bariatric Surger y program will [...] Flannery | | | | | | [place], [place] | | | | | | [address] | | | | | | [phone] | | | | | | | [...] | | + +---------+ + + | [facility] DEPARTMENT OF | | | | | RADIOLOGY | | | | + +---------+ + + documented in this encounter Visit Diagnoses + + | Diagnosis | + + | Abdominal pain - Primary | + + | Morbid obesity (HCC) Morbid obesity | + + documented in this encounter
--- OUTSIDE RECORDS SUMMARY | ~2019-12-19 | XMS | Encounter Summary ---
Demographics + + + | Address | [address] | | | [place] [address] | + + + | Home Phone [...] + | Katalina Padilla | ECON | [address] | | | | | [place], [place] | | | | | [address] | | + + + + + | Ellie Vang | ECON | Unknown | | + + + + + Care Team Providers + +------+ + | Care Burnisher Name | Role | Phone | + [...] floor | | | | | | [place], [place] | | | | | | [address] | | | +--------+ + + + [...] Flannery | | | | | | [place], [place] | | | | | | [address] | | | | | | [phone] | | | | | | | | +--------+---------+ + + + documented as of this encounter Visit Diagnoses Not on filedocumented in this encounter"
--- OUTSIDE RECORDS SUMMARY | ~2019-12-19 | XMS | Encounter Summary ---
Demographics + + + | Address | [address] | | | [place] [address] | + + + | Home Phone [...] + | Katalina Padilla | ECON | [address] | | | | | [place], [place] | | | | | [address] | | + + + + + | Ellie Vang | ECON | Unknown | | + + + + + Care Team Providers + +------+ + | Care Cone Baker Machine Name | Role | Phone | [...] Physicians | | | | | | [facility] | Juana Diaz, [facility] | | | | | | [place], [place] | Floor | | | | | | [address] | [place], [place] | | | | | | Phone: | [address] | | | | | | [phone] | Phone: | | | | | | | [phone] | | | | | | | Fax: | | | | | | | [phone] | +--------+--------+ + + + + Encounter [...] | [facility] [address] [place], | | | | | [address] | [place] [address] | | | | | Physicians [facility], | [phone] | | | | | 2nd Floor | | | | | | [place], [place] | | | | | | [address] | | | | | | [phone] | | | +--------+---------+ + + + [...] Axel Gonzales MD - 03/06/2014 1:15 PM [facility] Attending: [...] a HIDA scan to be done in [place] to verify that she does not have a pos t-operative surgical complication. We will call her with the results of her labs and imagin g. If these all come back normal she will need to follow up with her PCP to address her elisa sea/vomiting. - CBC and LFT's today - HIDA scan ordered, to be done in [place] - Will call patient once results are back. If normal, no need for follow up with EGS. The patient was seen and examined with Dr. Starr who agrees with the above assessment and janina Gonzales MD PGY-2 General Surgery Resident Department of General Surgery Pager: [phone] I saw and evaluated the patient. I agree with the findings and the plan of care as dequan han in the resident s note. PRADIP STARR MD [facility] GENERAL SURGERY AT [facility] [address] [facility] Mailcode: [address] [place] [address] documented in this encoun ter Plan of Treatment +--------+---------+ + + + | Date | Type | Specialty | Care Team | Description | +--------+---------+ + + + | 03/15/ | Office | Cardiology | Randell Franks, | | | 2019 | Visit | | [address] | | | | | | [place], [place] | | | | | | [address] | | | | | | [phone] | | | | | | | [...] [facility] | [address] | [place] [address] | | | SERVICES, CORE | [address] | | | + + + + + documented in this encounter Visit Diagnoses + + | Diagnosis | + + | Cholecystitis - Primary Cholecystitis, unspecified | + + documented in this encounter
--- OUTSIDE RECORDS SUMMARY | ~2019-12-19 | XMS | Encounter Summary ---
Demographics + + + | Address | [address] | | | [place] [address] | + + + | Home Phone [...] [place], [place] | | | | | [address] | | + + + + + | Ellie Vang | ECON | Unknown | | + + + + + Care Team Providers + +------+ + | Care Warp Knit Operator Name | Role | Phone | [...] | | 2019 | | Center at [facility] [address] | MD J[address] | | | | | [address] | [address] | | | | | Mailcode: Center | [place], [place] | | | | | [facility] and | [address] | | | | | [facility] 2 | [phone] | | | | | [place], [place] | | | | | | [address] | | | | | | [phone] | | | +--------+ + + + [...] Flannery | | | | | | [place] | | | | | | [address] | | | | | | [phone] | | | | | | | | +--------+---------+ + + + documented as of this encounter Visit Diagnoses Not on filedocumented in this encounter"
--- OUTSIDE RECORDS SUMMARY | ~2019-12-19 | XMS | Clinical Summary ---
Demographics + + + | Address | [address] | | | [place] [address] | + + + | Home Phone | | + + + | Preferred Language | Unknown | + + + | Marital Status | | + + + | Sabianism Affiliation | Unknown | + + + | Race | Unknown | + + + | Ethnic Group | Unknown | + + + Author + + + | Author | [facility] | | | and Jeffana | + + + | Organization | [facility] | | | and [...] Team Providers + +------+ + | Care Fountain Jerk Name | Role | Phone | + [...] | | 0.5 mg tablet | mouth 3 times daily | | | 20 | | e | | | as [...] 0 | | | Activ | | Gvmfuis-Nlsczxhbv-Pu | mouth 2 times daily. | | [...] | + + + +---------+------+------+-------+ | thyroid (SENIOR DIRECTOR OF STRATEGY | SENIOR DIRECTOR OF STRATEGY Thyroid 30 mg | | 0 | [...] tablet by | 30 | 11 | 01/2 | | Activ | | (TENORMIN) 50 mg | mouth nightly. | tablet | | 2/20 | | e | | tablet | | | | 20 | | | + + + +---------+------+------+-------+ | metoclopramide | Take 10 mg by mouth | | 0 | | | Activ | | (REGLAN) 10 mg | as needed for | | | | | e | | tablet | Nausea. | | | | | | + + + +---------+------+------+-------+ | warfarin | Take 5 mg by mouth | | 0 | | | Activ | | (COUMADIN) 5 mg | Daily. | | | | | e | | tablet | | | | | | | + + + +---------+------+------+-------+ | rizatriptan | Take 5 mg by mouth | | 0 | | | Activ | | (MAXALT-CHEMOTHERAPIST) 5 mg | as needed for | | | | | e | | disintegrating | Migraine. May repeat | | | | | | | tablet | in 2 hours if | | | | | | | | needed | | | | | | + + + +---------+------+------+-------+ | chlorproMAZINE | Take 100 mg by mouth | | 0 | | | Activ | | (THORAZINE) 100 mg | nightly. | | | | | e | | tablet | | | | | | | + + + +---------+------+------+-------+ | | Take 1 tablet by | | 0 | | | Activ | | oxyCODONE-acetaminop | mouth every 6 hours | | | | | e | | hen (PERCOCET) | as needed for Pain. | | | | | | | 10-325 mg per tablet | | | | | | | + + + +---------+------+------+-------+ Active Problems + + + | Problem | Noted Date | + + + | Hyperparathyroidism | [...] qd x | | 30 October 2015 RUST Assessment & Plan: Hgb appears to run [...] obesityPickwickian syndrome | | Recent admission to [facility] for 100lb | | weight gain- DC on diuresis on 03/06/2016- she feel improvedShe | | was on Metolazone and Torsemide prior to hospitalization- both | | have better bioavailability than lasix in gut edema but she | | retained 100lbs - how ever she is currently on only Torsemide | | 100mg Q12hrs started in [place] and her weight been stable | | sinceShyesenia has no other complaints.She is pending to see | | NephrologistEcho 02/16/2016([facility])- Normal LV systolic | | function, [...] skin and subcutaneous tissue | 02/18/20 | 10/03/201 | | | 19 | 9 | [...] + + + | 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 She has an appt with nephrology at | | [facility] on 03/17. Weight now 200kg (440lb, down [...] Defer Metolazone to her | | outpatient Graduate Rn or [employer] Sawyer- Will continue KCL | | supplementation at 60meq QID despite the spironolactone as she | | remains on the low side- Encourage daily weights at home with a | | log; she should contact her PCP, Graduate Rn or [employer] Sawyer for | | a 10lb weight gain [...] morbid obesity, she is enrolled in the [facility] bariatric program. | | She has [...] tolerating well in the | | hospital-- [facility] arranging for BiPAP upon d/c home to [facility] | | areaOverview: Cannot tolerate CPAP [...] | +--------+ + + + + | 10/26/ | Virtual | Cardiology | Sulema Altamirano | Chronic diastolic | | 2020 | Office | | HILDA Pope | heart failure (HCC) | | | Visit | | | (Primary Dx); | | | | | | History of sinus | | | | | | tachycardia; History | | | | | | of stroke; HTN, | | | | | | goal below 130/80; | | | | | | Mixed | | | | | | hyperlipidemia; | | | | | | Hypokalemia; [...] | | | | | | (HCC); History of | | | | | | type 2 diabetes | | | | | | mellitus; Personal | | | | | | history of DVT (deep | | | | | | vein thrombosis); | | | | | | History of pulmonary | | | | | | embolism; | | | | | | Hyperparathyroidism | | | | | | (HCC) | +--------+ + + + + from [...] [place]HE[address] | | | | | | [place] [place] [address] | | | | | | [phone] | | | | | | | [...] | LABS - EXTERNAL SCAN | | 11/07/2019 | | Results for this | | | | 12:00 AM | | procedure are in the | | | | PDT | | results section. | + +--------+ + + + from Last 3 Months Results LABS - EXTERNAL SCAN (11/07/2019 12:00 AM PDT) + + + | [...] | [employer] | MODA | [id number] | 10/28/19 | [phone] | | [employer]ica | | MEDICAID HMO | HEALTH | | 19-Pre | 1 | | id | | | MDCD | | sent | | | | | | [place] | | | | | | + +--------+ +--------+ +---------+--------+ | [employer] | MOD[employer] | [id number] | | [phone] | | Medica | | MEDICAID HMO [...] mire[place] | | | 3 (Home) | [address] | + +--------+ +--------+ + + | Elzbieta Cristina | Person | Self | [birth year] | [address] | | | al/Fam | | 1974 | [phone] | [place], [place] | | | mireya | | | 3 (Home) | [phone] | + +--------+ +--------+ + + Advance Directives + + + + + | Type | Date Recorded | Patient | Explanation | | | | Patient Transporter | | + + + + + | Power of | | | | | Mask Former | | | | + + + + + | Advance | | | | | Directive | | | | + + + + +
--- OUTSIDE RECORDS SUMMARY | ~2019-12-19 | XMS | Encounter Summary ---
Demographics + + + | Address | [address] | | | [place] [address] | + + + | Home Phone [...] + | Katalina Padilla | ECON | [address] | | | | | [place], [place] | | | | | [address] | | + + + + + | Ellie Vang | ECON | Unknown | | + + + + + Care Team Providers + +------+ + | Care Ambulatory Care Nurse Name | Role | Phone | [...] floor | | | | | | [place], [place] | | | | | | [address] | | | | | | [phone] | | | +--------+------+ + + + [...] | | | | | | [place], [place] | | | | | | [address] | | | | | | [phone] | | | | | | | [...] + + | [facility] | [address] [facility] | [place] [address] | | | SERVICES, CORE | [address]ARK [...] + +---------+ + + + | BIANCA KIMBLE | Page Hartmano | | [facility] | | | | [...] [facility] | [address] | [place] [address] | | | LYDIA RANGEL | PARK [...] | + + + + + | [facility] | [address] | [place] [address] | | | SERVICES, SPECIAL | [address]ARK [...]
--- OUTSIDE RECORDS SUMMARY | ~2019-12-19 | XMS | Encounter Summary ---
Demographics + + + | Address | [address] | | | [place] [address] | + + + | Home Phone [...] + | Katalina Padilla | ECON | [address] | | | | | [place], [place] | | | | | [address] | | + + + + + | Ellie Vang | ECON | Unknown | | + + + + + Care Team Providers + +------+ + | Care Faculty Administrator Name | Role | Phone | + +------+ + | Fadi Goodrich DO | PCP | | + +------+ + Encounter Details +--------+ + + + + | Date | Type | Department | Care Team | Description | +--------+ + + + + | 07/06/ | Abstract | Digestive Health | Shereen Georges, | | | 2012 | | Center at [facility] [address] | ACNP [address] | | | | [address] | Ave [place], [place] | | | | | Mailcode: [place] | [address] | | | | | for Health and | | | | | | [facility] 2 | | | | | | [facility] [place] | | | | | | [address] | | | | | | | [...] | | | | | [place], [place] | | | | | | [address] | | | | | | [phone] | | | | | | | | +--------+---------+ + + + documented as of this encounter Visit Diagnoses Not on filedocumented in this encounter"
--- OUTSIDE RECORDS SUMMARY | ~2019-12-19 | XMS | Encounter Summary ---
Demographics + + + | Address | [address] | | | [place] [address] | + + + | Home Phone [...] [place], [place] | | | | | [address] | | + + + + + | Ellie Vang | ECON | Unknown | | + + + + + Care Team Providers + +------+ + | Care Helpdesk Manager Name | Role | Phone | [...] 03/15/ | Office | Cardiology | Randell Frnaks, | | | 2019 | Visit | | [address] | | | | | | [place] | | | | | | [address] | | | | | | [phone] | | | | | | | | +--------+---------+ + + + documented as of this encounter Visit Diagnoses Not on filedocumented in this encounter"
--- OUTSIDE RECORDS SUMMARY | ~2019-12-19 | XMS | Encounter Summary ---
Demographics + + + | Address | [address] | | | [place] [address] | + + + | Home Phone [...] + | Katalina Padilla | ECON | [address] | | | | | [place], [place] | | | | | [address] | | + + + + + | Ellie Vang | ECON | Unknown | | + + + + + Care Team Providers + +------+ + | Care Coin Purse Framer Name | Role | Phone | + [...] | | 2016 | | Preventive at [facility] | MD [address] | ([place]) | | | | [address] | [place], [place] | | | | | Mailcode: Mihaela | [address] | | | | | [facility] | [phone] | | | | | and Erick, | | | | | | [address] | | | | | | [place], [place] | | | | | | [address] | | | | | | [phone] | | | +--------+ + + + [...] Flannery | | | | | | [place], [place] | | | | | | [address] | | | | | | [phone] | | | | | | | | +--------+---------+ + + + documented as of this encounter Visit Diagnoses Not on filedocumented in this encounter"
--- OUTSIDE RECORDS SUMMARY | ~2019-12-19 | XMS | Encounter Summary ---
Demographics + + + | Address | [address] | | | [place] [address] | + + + | Home Phone [...] + | Katalina Padilla | ECON | [address] | | | | | [place], [place] | | | | | [address] | | + + + + + | Ellie Vang | ECON | Unknown | | + + + + + Care Team Providers + +------+ + | Care Bell Staff Name | Role | Phone | + [...] | [facility] [address] | Andie Brian MD | | | 2012 - | Encounter | [address] | [address] | | | | | [place], [place] | [address] | | | 11/12/ | | [address] | [place], [place] | | | 2012 | | [phone] | [address] | | | | | | [phone] | | | | | | | [...] yuriy tral hernia. She was transferred from [place] for surgical evaluation of possible incarcer ated [...] Cipro. POD 5 she was discharged [place], tolerating a diabetic diet. Having bowel function. [...] yuriy tral hernia. She was transferred from [place] for surgical evaluation of possible incarcer ated [...] Cipro. POD 5 she was discharged [place], tolerating a diabetic diet. Having bowel function. [...] keeping you from eating and drinking, Call [phone]. It is important to stay hydrated! If [...] taking narcotic that contain Tylenol (acetaminophen) Example: [place], Lortab, Vicodin, hydrocodone/APAP, Percocet, Tylenol #3 PAIN MEDICATIONS are ONLY REFILLED during CLINIC APPOINTMENTS. Please call [phone] to schedule an appointment. Your Follow-Up Plan Follow up with ROBIN MEJIA in 2 weeks. Contact information: [address] [facility] [address] Vitals on discharge: Ht 154.9 cm (5' [...] might be different f rom the original. [facility] DEPARTMENT OF SURGERY [...] clinic - [place]. [place] [address] pager number [facility] [address] [facility] [address] Aminta Goodwin Md - 11/11/2012 7:40 AM PDT [facility] DEPARTMENT OF SURGERY EMERGENCY GENERAL SURGERY Division of Trauma and Critical Care Attending Physician: Andie Brian MD Progress Note Note Date: 11/11/2012 Admission Date: 11/06/2012 DYLAN ROMERO, [id number] Hospital Day #5 INTERVAL EVENTS none acute [...] mg, Rectal, DAILY PRN, Aminta Wilson MD vwynnokqhg-wkbkuigiorqat-zctvrqng (aka FIORICET) 50-325-40 mg 1 Tab, 1 [...] Jayne Ponce MD, 1 mg at 11/10/12801 nluqpqqhte-wgollizhycizx-lvpunzvg (aka FIORICET) 50-325-40 mg 1 Tab, 1 [...] in preservative free NaCl 0.9% 50 mL ASSISTANT MEN'S SOCCER COACH infusion, , Intravenous, KIESHA NUGRANT, Aracely Mccartynato, [...] hernia, now s/p repair and panniculectomy 19F vaenssa above fascia -Binder, pain control, minimize nausea and coughing PRN. -DIAMOND in until drainage <30ml for 24hrs, will likely go home with drain -clear liquid diet -add bowel regimen Acute pain -HM ASSISTANT MEN'S SOCCER COACH, tylenol -convert to oral pain medication once [...] Fluids: LR 125ml/hr Feeding: NPO Analgesia: Dilaudid ASSISTANT MEN'S SOCCER COACH Sedation: not indicated Thromboprophylaxis: enoxaparin Head of [...] Ponce MD, 1 mg at 11/09/12 0855 aibzrdnejf-bycuaqfwamgoz-xzyiiwha (aka FIORICET) 50-325-40 mg 1 Tab, 1 [...] in preservative free NaCl 0.9% 50 mL ASSISTANT MEN'S SOCCER COACH infusion, , Intravenous, KIESHA NUOUS, Aracely Cruzo, DO, 0.3 mg at 11/09/12 0853 [...] drainage <30ml for 24hrs Acute pain -HM ASSISTANT MEN'S SOCCER COACH, tylenol Diabetes: -insulin gtt not started due [...] Fluids: LR 125ml/hr Feeding: NPO Analgesia: Dilaudid ASSISTANT MEN'S SOCCER COACH Sedation: not indicated Thromboprophylaxis: enoxaparin Head of bed: > 30 Ulcer prophylaxis: pepcid Glycemic control: adequate Activity/PT/OT: Ongoing Yogurt: ABX on Probiotics:yes AMINTA WILSON MD General Surgery, R1 Kaleb Martin N P - 11/08/2012 8:49 AM PDT [facility] DEPARTMENT OF SURGERY EMERGENCY GENERAL SURGERY Division of Trauma and Critical Care Attending Physician: Andie Brian MD Progress Note Note Date: 11/08/2012 Admission Date: 11/06/2012 DYLAN ROMERO, [id number] Hospital Day #2 INTERVAL EVENTS NO SUBJECTIVE Pain well controlled; has headache attributed to dilaudid ASSISTANT MEN'S SOCCER COACH Tylenol did not help. Flatus: YES Tolerating [...] trials today. -DC ruiz Acute pain -HM ASSISTANT MEN'S SOCCER COACH, tylenol Diabetes: -insulin gtt not started due [...] Fluids: LR 125ml/hr Feeding: NPO Analgesia: Dilaudid ASSISTANT MEN'S SOCCER COACH Sedation: not indicated Thromboprophylaxis: enoxaparin Head of bed: > 30 Ulcer prophylaxis: pepcid Glycemic control: adequate Activity/PT/OT: Ongoing Yogurt: ABX on Probiotics: No KALEB WALKER NP [facility] [address] [place] [address] elvin Stephens MD - 11/07/2012 9:51 PM [...] 7.33* PCO2 49* PO2 113* HCO3 25 LJEVF1LRF 26 Q2GQQLNQ 98.3* C9ZDOSRBF -- FIO2 60 ABGEXCESS -0.9 Assessment, Medical Decision Making and Plan 1. Incarcerated hernia, now s/p repair and panniculectomy -Binder, pain control, minimize nausea and coughing PRN. -NG clamping trials today. 2. Acute pain -HM ASSISTANT MEN'S SOCCER COACH, tylenol 3. Diabetes: -insulin gtt 4. Morbid [...] Dione Grimes MD R-2, General Surgery Pager: [phone] [facility] [place] Department of Surgery Trauma ICU Team Pager (24hrs/day): [phone] I was present with the resident during the history and exam. I discussed the case with the resident and agree with the findings and plan as documented in the resident s note. KELVIN STEPHENS MD [facility] [address] [facility] [place] [address] [id number] uOnru patton MD - 11/07/2012 2:37 AM PDT [...] mouthwash 15 mL 15 mL Oral Q6H Dnany Lagos MD 15 mL at 11/06/122029 dexmedetomidine [...] in preservative free NaCl 0.9% 50 mL ASSISTANT MEN'S SOCCER COACH infusion Intravenous CON TINUOUS Aracely Flores, DO [...] POD#1 s/p primary repair. 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 buckle strap puncher and prn tylenol, continue prozac and zyprexa [...] F: probable remain NPO today A: dilaudid buckle strap puncher, prn tylenol S: prn benzos as she is at home T: will start prophylactic lovenox today H: HOB >30 degrees U: pepcid G: insulin gtt ONUR ALLEN MD, PGY3 [facility] [address] [id number] [address] Onelia Shrestha MD - 11/06/2012 8:41 AM PDT [facility] DEPARTMENT OF SURGERY Division of Trauma and Critical Care Emergency General Surgery / Acute Care Surgery Attending Physician: Andie Brian MD Note Date: 11/06/2012 Admission Date: 11/06/2012 DYLAN ROMERO, [id number] Hospital Day #0 OVERNIGHT EVENTS: anxious SUBJECTIVE: [...] zenia LABS: reviewed and are available in [email or web address] (if new data) IMAGING: VASCULAR: IMPRESSION: Dylan [...] Flannery | | | | | | [place], [place] | | | | | | [address] | | | | | | [phone] | | | | | | | [...] | + +--------+ + + + | AMRIK (BERNARD), POC | Routin | 11/06/2012 | Hernia [...] Mae | | | | | | [place] | | | | + + + [...] [facility]QU[facility] | [address] | [place], [place] | | | JUSTINE DAWN OF CARE | [address] | [address] | | | TESTS | | | [...] AMES | [address] | [place], [place] | | | [facility] CARE | [address] | [address] | | | TESTS | | | [...] | + + + + + | [facility] | [address] | [place] [address] | | | SERVICES, CORE | CLARENCE [...] | | | LABORATORY | | | [facility] | | | SERVICES, | | | [...] HOSPITAL LABORATORY | [address] | [place] [address] | | | SERVICES, CORE | PARK [...] HOSPITAL LABORATORY | [address] | [place] [address] | | | SERVICES, CORE | CLARENCE [...] + + + | [facility] | [address] | [place], [place] | | | [facility]ARE | [address] | [address] | | | TESTS | | | [...] [facility] | [address] | [place], [place] | | | [facility]ARE | [address] | [address] | | | TESTS | | | [...] - [facility] | [address] | [place], [place] | | | [facility]ARE | [address] | [address] | | | TESTS | | | [...] + + + | [facility] | [address] | [place], [place] | | | [facility]ARE | [address] | [address] | | | TESTS | | | [...] [facility] | [address] | [place], [place] | | | [facility] CARE | [address] | [address] | | | TESTS | | | [...] [facility] | [address] | [place] [address] | | | SERVICES, CORE | PARK [...] | | | LABORATORY | | | SA[facility]IAN | | | SERVICES, | | | [...] + + + + | [facility] | [address] | [place] [address] | | | SERVICES, CORE | [address] | | | + + + + + MAGNESIUM, PLASMA (11/11/2012 3:38 AM PDT) + +---------+ + + + | Component | Value | Ref Range | Performed | Pathologist | | | | | At | Signature | + +---------+ + + + | MAGNESIUM,P | 1.5 (L) | 1.8 - 2.5 mg/dL | P[facility] [...] [facility] | [address] | [place] [address] | | | SERVICES, CORE | PARK [...] [facility] | [address] | [place], [place] | | | JUSTINE DAWN OF JAKY | [facility] | [address] | | | TESTS | | | | + + + + + CAPILLARY BLOOD GLUCOSE (NO CHG), POC (11/10/2012 4:27 PM PDT) + +-------+ + + + | Component | Value | Ref Range | Performed | Pathologist | | | | | At | Signature | + +-------+ + + + | BLOOD | 90 | 60 - 99 mg/dL | PERRY [...] KWAKU | [address] | [place], [place] | | | [facility] CARE | [address] | [address] | | | TESTS | | | [...] AMES | [address] | [place], [place] | | | [facility] CARE | [facility] | [address] | | | TESTS | | | | + + + + + CAPILLARY BLOOD GLUCOSE (NO CHG) POC (11/10/2012 9:54 AM PDT) + +---------+ [...] [facility] | [address] | [place], [place] | | | [facility] OF CARE | [facility] | [address] | | | TESTS | | | | + + + + + CAPILLARY BLOOD GLUCOSE (NO CHG), POC (11/10/2012 5:56 AM PDT) + +-------+ + + + | Component | Value | Ref Range | Performed | Pathologist | | | | | At | Signature | + +-------+ + + + | BLOOD | 90 | 60 - 99 mg/dL | PERRY [...] KWAKU | [address] | [place], [place] | | | JUST[facility] DAWN OF [facility] | [address] | [address] | | | TESTS | | | [...] [facility] | [address] | [place] [address] | | | SERVICES, CORE | PARK [...] | | | LABORATORY | | | [facility] | | | SERVICES, | | | [...] the MDRD equation recommended by the | INSU | | National Kidney Disease Education Program. [...] [facility] | [address] | [place] [address] | | | LYDIA RANGEL | CLARENCE [...] HOSPITAL LABORATORY | [address] | [place] [address] | | | SERVICES, CORE [...] 92 | 60 - 99 mg/dL | PERRY [...] AMES | [address] | [place], [place] | | | [facility] OF CARE | [address] | [address] | | | TESTS | | | [...] Y[facility] | [address] | [place], [place] | | | [facility] OF CARE | [address] | [address] | | | TESTS | | | [...] AMES | [address] | [place], [place] | | | JUST[facility]WN OF CARE | [facility] | [address] | | | TESTS | | | [...] | | | Final CULTURE | | [place] | | | | RESULT:>100,000 cfu/ml | [...] + | [facility] | [address] | [place] [address] | | | [facility] | | | | + + [...] [facility] | [address] | [place] [address] | | | SERVICES, CORE | PARK [...] | | | LABORATORY | | | AKTHE | | | SERVICES, | | | [...] [facility] | [address] | [place] [address] | | | SERVICES, CORE | PARK [...] [facility] | [address] | [place], [place] | | | [facility]INT OF CARE | [address] | [address] | | | TESTS | | | [...] | | | LABORATORY | | | [facility] | | | SERVICES, | | | [...] + + + + | [facility] | [address] | [place] [address] | | | SERVICES, CORE | PARK [...] + + + + | [facility] | [address] | [place] [address] | | | SERVICES, CORE | CLARENCE [...] + + | [facility] | [address] | [place] [address] | | | LYDIA RANGEL | CLARENCE [...] [facility] | [address] | [place], [place] | | | [facility] POINT OF CARE | [address] | [address] | | | TESTS | | | [...] AMES | [address] | [place], [place] | | | [facility] OF CARE | [facility] | [address] | | | TESTS | | | [...] [facility] | [address] | [place], [place] | | | JUSTINE DAWN OF JAKY | [address] | [address] | | | TESTS | | | [...] [facility] | [address] | [place] [address] | | | SERVICES, CORE | PARK [...] [facility] | [address] | [place] [address] | | | SERVICES, CORE | PARK [...] | | | LABORATORY | | | SAUDI [facility]ABIAN | | | SERVICES, | | | [...] + + | [facility] | [address] | [place] [address] | | | SERVICES, CORE | PARK [...] [facility] | [address] | [place], [place] | | | JUSTINE DAWN OF JAKY | [address] | [address] | | | TESTS | | | [...] - [facility] | [address] | [place], [place] | | | [facility]INT OF CARE | [address] | [address] | | | TESTS | | | | + + + + + CAPILLARY BLOOD GLUCOSE (NO CHG), POC (11/07/2012 6:25 PM PDT) + +-------+ + + + | Component | Value | Ref Range | Performed | Pathologist | | | | | At | Signature | + +-------+ + + + | BLOOD | 82 | 60 - 99 mg/dL | [facility] [...] + + + | [facility] | [address] | [place], [place] | | | [facility]INT OF CARE | [address] | [address] | | | TESTS | | | [...] + + + + | [facility] | [address] | [place] [address] | | | SERVICES, CORE | CLARENCE [...] HOSPITAL LABORATORY | [address] | [place] [address] | | | CLAIRE, LYDIA | CLARENCE [...] | | | LABORATORY | | | [facility] | | | SERVICES, | | | [...] | + + + + + | [facility] | [address] | [place] [address] | | | SERVICES, CORE | [address] | | | + + + + + X-RAY PORTABLE CHEST 1 VIEW (11/06/2012 4:46 PM PDT) + + + + + + | Component | Value | Ref Range | Performed | Pathologist | | | | | At | Signature | + + + + + + | X-RAY | STUDY: MD CHEST 1 VIEW | | | | | PORTABLE | 11/06/12 16:46:00 | | | | | CHEST 1 | INDICATION: Right upper | | | | | VIEW | lobe opacity. | | | | | | COMPARISON: Earlier same | | | | | | day a STUDY: MD CHEST 1 | | | | | [...] | | + +---------+ + + | [facility] DEPARTMENT OF | | [...] + + + | X-RAY | STUDY: MD CHEST 1 VIEW | | | | [...] | | | | | rylie / ANA | | | | | [...] | | + +---------+ + + | [facility] DEPARTMENT OF | | [...] + + + + | [facility] | [address] | [place] [address] | | | SERVICES, CORE | CLARENCE [...] | | | LABORATORY | | | [facility] | | | SERVICES, | | | [...] [facility] | [address] | [place] [address] | | | SERVICES, CORE | PARK [...] HOSPITAL LABORATORY | [address] | [place] [address] | | | SERVICES, CORE | CLARENCE [...] AMES | [address] | [place], [place] | | | [facility]WN OF CARE | [address] | [address] | | | TESTS | | | | + + + + + VALERIE ZAMORA (11/06/2012 1:03 PM PDT) + + + [...] | | [facility] - | | | [facility] | | | [facility] | | | [...] AMES | [address] | [place], [place] | | | JUST[facility] DAWN OF CARE | [address] | [address] | | | TESTS | | | [...] [facility] | [address] | [place], [place] | | | [facility] POINT OF CARE | [address] | [address] | | | TESTS | | | [...] [facility] | [address] | [place], [place] | | | [facility]WN OF CARE | [address] | [address] | | | TESTS | | | [...] AMES | [address] | [place], [place] | | | JUST[facility] DAWN OF CARE | [facility] | [address] | | | TESTS | | | [...] [facility] | [address] | [place], [place] | | | JUSTINE DAWN OF JAKY | [address] | [address] | | | TESTS | | | [...] [facility] | [address] | [place], [place] | | | JUSTINE DAWN OF CARE | [facility] | [address] | | | TESTS | | | [...] AMES | [address] | [place], [place] | | | [facility] POINT OF CARE | [address] | [address] | | | TESTS | | | [...] | | | POC | | | [facility] | | | [...] [facility] | [address] | [place], [place] | | | JUSTINE DAWN OF JAKY | [address] | [address] | | | TESTS | | | [...] [facility] | [address] | [place], [place] | | | JUSTINE DAWN OF CARE | [address] | [address] | | | TESTS | | | [...] AMES | [address] | [place], [place] | | | [facility] POINT OF CARE | [address] | [address] | | | TESTS | | | [...] [facility] | [address] | [place] [address] | | | CLAIRE, | [address] [...] [facility] | [address] | [place], [place] | | | [facility] POINT OF CARE | [address] | [address] | | | TESTS | | | [...] + + + + | [facility] | [address] | [place] [address] | | | SERVICES, | [address] [...] [facility] | [address] | [place] [address] | | | SERVICES, | [address] [...] + + + + | [facility] | [address] | [place] [address] | | | SERVICES, CORE | CLARENCE [...] [facility] | [address] | [place] [address] | | | SERVICES, CORE | CLARENCE [...] [facility] | [address] | [place] [address] | | | SERVICES, CORE | [address] | | | + + + + + INR (11/06/2012 6:28 AM PDT) + +-------+ + + + | Component | Value | Ref Range | Performed | Pathologist | | | | | At | Signature | + +-------+ + + + | INR | 1.13 | 0.90 - 1.20 INR | INSU | | | | | | LABORATORY [...] [facility] | [address] | [place] [address] | | | SERVICES, CORE | PARK [...] | | | LABORATORY | | | [facility] | | | SERVICES, | | | [...] [facility] | [address] | [place] [address] | | | LYDIA RANGEL | CLARENCE [...] view image for the detailed interpretation from [employer] results. | CARDIOLOGY | + + + + + + + + | Performing | Address | City/State/Zipcode | Phone Number | | Organization | | | | + + + + + | [facility] | [address] | [place], [place] | | | CARDIOLOGY | [address] | [address] | | + + + + + [...] [facility] | [address] | [place] [address] | | | SERVICES, CORE | [address] | | | + + + + + MADAY CEDILLO ONLY (11/06/2012 4:51 AM PDT) + + [...] | + + + + + | [facility] | [address] | [place] [address] | | | CLAIRE, LYDIA | CLARENCE [...] | 1 tablet | | | | yrzjstbmfy-dscjqyfszhfin-ugjvomlq | | 13 8:02 | | | [...] | EVERY 12 HOURS, First dose on Thu | | [...] 13 7:36 | | | | | ASSISTANT MEN'S SOCCER COACH infusion intravenous, | | PM PDT | [...] PDT | | | | | Until [facility] 11/11/12 at 0702 | | | | [...] | +---+---+ + +---------+ +--------+--------+---+ | LORazepam (akseven ATIVAN) | New Bag | 11/10/19 | [...] | | +---+---+ + +---------+ +------+--------+---+ | nalbuphijewell (jack [place]) | New Bag | 11/11/19 | 5 [...] | | | | | NEEDED, Starting 11/10/12 at | | | | | | | 1404, Until Jasmyne 11/11/12 at 0721, | | | | | [...] | | | | last modification) on Thu11/11/12 | | | | | | | [...] 2 | | | | (aka NEUTRA-PHOS, MUSHTAQS-NAK) | | 13 12:13 | packets | [...] mEq, intravenous, ONCE, 1 | | 13 5:12 | | | [...] +---+---+ + +-------+ + +---+---+ | senna-docusate (aka SENJENNIFEROT S) | Given | 11/13/19 | 1 [...] | | | (DIURETIC), First dose on Sun | | AM PDT | | | [...]
--- OUTSIDE RECORDS SUMMARY | ~2019-12-19 | XMS | Encounter Summary ---
Demographics + + + | Address | [address] | | | [place] [address] | + + + | Home Phone | | + + + | Preferred Language | Unknown | + + + | Marital Status | | + + + | Episcopal Affiliation | Unknown | + + + | Race | Unknown | + + + | Ethnic Group | Unknown | + + + Author + + + | Author | [facility] | | | and Jeffana | + + + | Organization | [facility] | | | and [...] Team Providers + +------+ + | Care Radial Drill Press Operator Name | Role | Phone | + +------+ + PCP | Unavailable | + +------+ + Encounter Details +--------+ + + + + | Date | Type | Department | Care Team | Description | +--------+ + + + + | 03/ | Orders Only | [facility] | Dharmesh Escobar, | | | 2018 | | NEPHROLOGY [place] | [employer] [address] | | | | [address] DM[address] | [address] | | | | | [address] [place], [place] | [place] | | | | | [address] | [address] | | | | | [phone] | [phone] | | | | | | | [...] Cardiology | Adarsh Sulema | | | 2020 | Visit | | [address] | | | | | | [address] | | | | | | [place] [address] | | | | | | [phone] | | | | | | | [...] + + + + + + | Red Blood | 5.20 (A) | 3.8 - 5.1 10 | EXTERNAL | | | Cells | | | LAB | | | Counted | | | [...] | | | LAB | | | [facility] | | | | | + +---------+ [...]
--- OUTSIDE RECORDS SUMMARY | ~2019-12-19 | XMS | Encounter Summary ---
Demographics + + + | Address | [address] | | | [place] [address] | + + + | Home Phone [...] + | Katalina Padilla | ECON | [address] | | | | | [place], [place] | | | | | [address] | | + + + + + | Ellie Vang | ECON | Unknown | | + + + + + Care Team Providers + +------+ + | Care Pipe Supervisor Name | Role | Phone | [...] ENDOSCOPY | | 2017 | | [facility] | [address] | | | | | Rd [facility] | [place], [place] | | | | | Hospital Admitting | [address] | | | | | Desk Located on the | [phone] | | | | | 9th floor | | | | | | [place], [place] | | | | | | [address] | | | +--------+---------+ + + + [...] the endoscopy department toll free ext. [phone] or After business hours or on weekends and holiday Hospital Pediatric Dentist toll free [phone] ext. [phone] and have the GI doctor client integration manager paged. The provider who performed your [...] | | 0 | | | | CRB&[id number]-A7-RBK16-GEN | mouth two times | | | [...] 2:35 PM PST PRE PROCEDURE NOTE: MR# [id number] Subjective: Elzbieta Cristina is a 43 y.o. [...] [address] | | | | | | [place], [place] | | | | | | [address] | | | | | | [phone] | | | | | | | [...] -----+ | MRN: | [facility] | | [id number] Date: 06/23/2018Patient Name: Elzbieta Curtis #: | MORGAN Y | | [id number] of : 1975CSN: [id number] Type: | | | AmbulatoryRoom: SORProcedure: Upper GI | | | endoscopyIndications: Nausea with vomiting, Status post | | | Hceq-hh-PYssstnbds: KALEB WILCOX MD (Doctor), JOSE | | | [facility] | | | (Physical Therapy Aid)Referring MD: DANIELLE GARCÍAPRequestdonya | | | Provider: [...] | | | The Olympus [id number]-[id number] Gastroscope #[id number] was | | | introduced through the [...] endoscope without resistance. The | | | ehjug-va-uqeqhnh limb was characterized by healthy appearing | [...] Initiated On: | | | 06/23/2018 3:58 [facility] Letter to: FADI MICHAEL DO | [...] | [address] | [place], [place] | | | [place] | [address] | [address] | | | TESTS | | | [...] | | | | | | Until [facility] 06/24/18 at 0027, | | | | [...]
--- OUTSIDE RECORDS SUMMARY | ~2019-12-19 | XMS | Encounter Summary ---
Demographics + + + | Address | [address] | | | [place] [address] | + + + | Home Phone [...] [place], [place] | | | | | [address] | | + + + + + | Ellie Vang | ECON | Unknown | | + + + + + Care Team Providers + +------+ + | Care Bar Assistant Name | Role | Phone | + +------+ + | Fadi Goodrich DO | PCP | | + +------+ + Encounter Details +--------+ + + + + | Date | Type | Department | Care Team | Description | +--------+ + + + + | 10/04/ | Abstract | Digestive Health | Hernandez Brian, | | | 2012 | | Center at [facility] [address] | MD [address] | | | | | [address] | [facility] | | | | | Mailcode: Center | [place], [place] | | | | | for Health and | [address] | | | | | [facility] 2 | [phone] | | | | | [place], [place] | | | | | | [address] | | | | | | [phone] | | | +--------+ + + + [...] [place] | | | | | | [address] | | | | | | [phone] | | | | | | | | +--------+---------+ + + + documented as of this encounter Visit Diagnoses Not on filedocumented in this encounter"
--- OUTSIDE RECORDS SUMMARY | ~2019-12-19 | XMS | Encounter Summary ---
Demographics + + + | Address | [address] | | | [place] [address] | + + + | Home Phone [...] + | Katalina Padilla | ECON | [address] | | | | | [place], [place] | | | | | [address] | | + + + + + | Ellie Vang | ECON | Unknown | | + + + + + Care Team Providers + +------+ + | Care Chief Dispatcher Name | Role | Phone | [...] | | | | | | [place], [place] | | | | | | [address] | | | | | | [phone] | | | +--------+ + + + [...] [address] | | | | | | [place], [place] | | | | | | [address] | | | | | | [phone] | | | | | | | | +--------+---------+ + + + documented as of this encounter Visit Diagnoses Not on filedocumented in this encounter"
--- OUTSIDE RECORDS SUMMARY | ~2019-12-19 | XMS | Encounter Summary ---
Demographics + + + | Address | [address] | | | [place] [address] | + + + | Home Phone [...] [place], [place] | | | | | [address] | | + + + + + | Ellie Vang | ECON | Unknown | | + + + + + Care Team Providers + +------+ + | Care Shipping Lead Name | Role | Phone | [...] | | 2014 | | Preventive at [facility] | MD [address] | | | | | [address] | [place], [place] | | | | | Mailcode: [facility] | [address] | | | | | [facility] | [phone] | | | | | and [address] | | | | | | [address] | | | | | | [facility] [place] | | | | | | [address] | | | | | | [phone] | | | +--------+ + + + [...] [address] | | | | | | [place], [place] | | | | | | [address] | | | | | | [phone] | | | | | | | | +--------+---------+ + + + documented as of this encounter Visit Diagnoses Not on filedocumented in this encounter"
--- OUTSIDE RECORDS SUMMARY | ~2019-12-19 | XMS | Encounter Summary ---
Demographics + + + | Address | [address] | | | [place] [address] | + + + | Home Phone [...] [place], [place] | | | | | [address] | | + + + + + | Ellie Vang | ECON | Unknown | | + + + + + Care Team Providers + +------+ + | Care Inside Parts Sales Name | Role | Phone | [...] [place] | | | | | | [address] | | | | | | [phone] | | | | | | | | +--------+---------+ + + + documented as of this encounter Visit Diagnoses Not on filedocumented in this encounter"
--- OUTSIDE RECORDS SUMMARY | ~2019-12-19 | XMS | Encounter Summary ---
Demographics + + + | Address | [address] | | | [place] [address] | + + + | Home Phone [...] + | Katalina Padilla | ECON | [address] | | | | | [place], [place] | | | | | [address] | | + + + + + | Ellie Vang | ECON | Unknown | | + + + + + Care Team Providers + +------+ + | Care Manufacturing Team Member Name | Role | Phone | [...] | | | | | | [address] [place], [place] | | | | | | [address] | | | | | | [phone] | | | +--------+ + + + [...] [address] | | | | | | [place], [place] | | | | | | [address] | | | | | | [phone] | | | | | | | | +--------+---------+ + + + documented as of this encounter Visit Diagnoses Not on filedocumented in this encounter"
--- OUTSIDE RECORDS SUMMARY | ~2019-12-19 | XMS | Encounter Summary ---
Demographics + + + | Address | [address] | | | [place] [address] | + + + | Home Phone [...] [place], [place] | | | | | [address] | | + + + + + | Ellie Vang | ECON | Unknown | | + + + + + Care Team Providers + +------+ + | Care Smoking Tobacco Packing Machine Hand Name | Role | Phone | [...] | | 2018 | | Preventive at [facility] | [address] | (Phentermine 37.5mg) | | | | [address] | [place], [place] | | | | | Mailcode: [facility] | [address] | | | | | [facility] | [phone] | | | | | and [address], | | | | | | [address] | | | | | | [place], [place] | | | | | | [address] | | | | | | [phone] | | | +--------+ + + + [...] [address] | | | | | | [place], [place] | | | | | | [address] | | | | | | [phone] | | | | | | | | +--------+---------+ + + + documented as of this encounter Visit Diagnoses Not on filedocumented in this encounter"
--- OUTSIDE RECORDS SUMMARY | ~2019-12-19 | XMS | Encounter Summary ---
Demographics + + + | Address | [address] | | | [place] [address] | + + + | Home Phone | | + + + | Preferred Language | Unknown | + + + | Marital Status | | + + + | Mormon Affiliation | Unknown | + + + | Race | Unknown | + + + | Ethnic Group | Unknown | + + + Author + + + | Author | and Services [facility] | | | and Jeffana | + + + | Organization | and [facility] | | | and Jeffana [...] Team Providers + +------+ + | Care Check Out Cashier Name | Role | Phone | + +------+ + PCP | Unavailable | + +------+ + Encounter Details +--------+ + + + + | Date | Type | Department | Care Team | Description | +--------+ + + + + | 10/07/ | Orders Only | [facility] | Conversion | | | 2018 | | NEPHROLOGY JESUS | Transaction, | | | | | [address] | Provider Unknown | | | | | [address] [place] [address] | | | | | | [address] | (Fax) | | | | | [phone] | | | +--------+ + + + [...] [address]HEY | | | | | | [place] [address] | | | | | | [phone] | | | | | | | | +--------+---------+ + + + documented as of this encounter Procedures + +--------+ + + + | Procedure Name | Priori | Date/Time | Associated Diagnosis | Comments | | | ty | | | | + +--------+ + + + | URIC ACID | Routin | 10/07/2017 | | Results for this | | | e | 12:50 AM | | procedure are in the | | | | PDT | | results section. | + +--------+ + + + documented in this encounter Results Uric Acid (10/07/2017 12:50 AM PDT) + +---------+ + + + | Component | Value | Ref Range | Performed | Pathologist | | | | | At | Signature | + +---------+ + + + | Uric Acid | 8.7 (A) | 2.3 - 6.6 | EXTERNAL [...]
--- OUTSIDE RECORDS SUMMARY | ~2019-12-19 | XMS | Clinical Summary ---
Demographics + + + | Address | [address] | | | [place] [address] | + + + | Home Phone [...] Author + + + | Author | [facility] | + + + | Organization | [facility] | [...] [place], [place] | | | | | [address] | | + + + + + | Ellie Vang | ECON | Unknown | | + + + + + Care Team Providers + +------+ + | Care Bank Analyst Name | Role | Phone | + +------+ + | Kenyatta Cardenas MD | PCP | | + +------+ + Source Comments [facility] is fully live on [facility] and [facility] InPatient.[facility] Allergies + + + + [...] 0 | | | Activ | | CRB&SOQ-N5-CYO30-GEN | mouth two times | | | [...] | + + + +---+------+---+-------+ | thyroid (SERVICE DESK DIRECTOR | Take 30 mg by mouth | [...] | 09/26/ | Abstract | Surgery | Chilo | [...] | +--------+---------+ + + + | 03/15/ Office | Cardiology | Randell Franks, | | | 2019 | Visit | | [address] | | | | | | [place], [place] | | | | | | [address] | | | | | | [phone] | | | | | | | [...] - | | | | | | /[address] | | [id number]: Qty: 1 on | | | | | | 525 | | 03/01/2018 by Ion Pandey | | | | | | | | MD Vinicius at [facility] | | | | | | [...] - | | | | | | /[address] | | [id number]: Qty: 1 on | | | | | | 173 | | 03/01/2018 by Ion Pandey | | | | | | | | MD Vinicius at [facility] | | | | | | [...] | | | + +--------+ +--------+-------+---------+--------+ | MINING DETAIL DRAFTSPERSON MEDICAID | MINING DETAIL DRAFTSPERSON | xxxxxxxx | | | | Medica [...] al/Fam | | 1975 | [phone] | [place] | | | mireya | | | 3 (Home) | [address] | + +--------+ +--------+ + + Advance [...]
--- OUTSIDE RECORDS SUMMARY | ~2019-12-19 | XMS | Encounter Summary ---
Demographics + + + | Address | [address] | | | [place] [address] | + + + | Home Phone [...] [place], [place] | | | | | [address] | | + + + + + | Ellie Vang | ECON | Unknown | | + + + + + Care Team Providers + +------+ + | Care Taste Tester Name | Role | Phone | + +------+ + | Kenyatat Cardenas MD | PCP | | + [...] [place] | | | | | | [address] | | | | | | [phone] | | | | | | | | +--------+---------+ + + + documented as of this encounter Visit Diagnoses Not on filedocumented in this encounter"
--- OUTSIDE RECORDS SUMMARY | ~2019-12-19 | XMS | Encounter Summary ---
Demographics + + + | Address | [address] | | | [place] [address] | + + + | Home Phone [...] [place], [place] | | | | | [address] | | + + + + + | Ellie Vang | ECON | Unknown | | + + + + + Care Team Providers + +------+ + | Care Stencil Printer Name | Role | Phone | + +------+ + | Fadi Goodrich DO | PCP | | + +------+ + Encounter Details +--------+---------+ + + + | Date | Type | Department | Care Team | Description | +--------+---------+ + + + | 01/11/ | Office | Digestive Health | | Morbid obesity (HCC) | | 2018 | Visit | Center at [facility] [address] | | (Primary Dx) | | | | [address] | | | | | | Mailcode: [place] | | | | | | [facility] and | | | | | | [facility] 2 | | | | | | [place], [place] | | | | | | [address] | | | | | | [phone] | | | +--------+---------+ + + + [...] of Class: 1055 until 1155 (60 minutes hnin-fi-qsca with patient) Teaching Methods: PowerPoint and verbal [...] a journal with fluid/protein d. Transportation 7. [place] [facility] 8. Surgical [...] [address] | | | | | | [place], [place] | | | | | | [address] | | | | | | [phone] | | | | | | | | +--------+---------+ + + + documented as of this encounter Visit Diagnoses + + | Diagnosis | + + | Morbid obesity (HCC) - Primary Morbid obesity | + + documented in this encounter"
--- OUTSIDE RECORDS SUMMARY | ~2019-12-19 | XMS | Encounter Summary ---
Demographics + + + | Address | [address] | | | [place] [address] | + + + | Home Phone [...] + | Katalina Padilla | ECON | [address] | | | | | [place], [place] | | | | | [address] | | + + + + + | Ellie Vang | ECON | Unknown | | + + + + + Care Team Providers + +------+ + | Care Linseed Oil Refiner Name | Role | Phone | + [...] | BROCK Roldan | | | with DUPLIGRAPH OPERATOR | | hypertension | [address] | | | | | Right | [address] | [place] | | | | | heart | [place], [place] | [place], | | | | | failure | [address] | [place] | | | | | ([facility]) Type | Phone: | [address] | | | | | 2 diabetes | [phone] | | | | | | mellitus | Fax: | | | | | | without | [phone] | | | | | | complication | | | | | | | , with | | | | | | | long-term | | | | | | | current use | | | | | | | of insulin | | | | | | | ([facility]) | | | +--------+ + + + + + Encounter Details +--------+---------+ + + + | Date | Type | Department | Care Team | Description | +--------+---------+ + + + | 04/01/ | Office | Digestive Health | Dione Andre, | History of Frandy-en-Y | | 2018 | Visit | Center at [facility] [address] | [address] [facility] | gastric bypass | | | | [facility] | [address] | (Primary Dx); | | | | for [employer] and | [place], [place] | 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[facility] | [address] | with insulin therapy | | | | [place], [place] | | ([facility]) | | | | [address] | | | | | | [phone] | | | +--------+---------+ + + + [...] Follow-Up Patient referred by: Randell Franks MD [address] [place] [address] Documented time of visit: 10:33 to 10:55 (22 minutes rdoo-aa-zkmo with patient) Surgery: Gastric Bypass Date of [...] rhinitis Anemia Anxiety Bipolar disorder ([facility]) Chronic wound infection of abdomen from 2010 Cough Depression Diverticulitis of colon Dizziness Glaucoma Heart burn Hemorrhoids Hernia of abdominal wall Incisional hernia, incarcerated 2012 Insomnia Irregular periods Kidney stone Leaking of urine Leg sore Lymphedema Morbid obesity with body mass index of 70 and over in adult ([facility]) Myalgia and myositis Nausea Neck pain Numbness Osteoarthritis of knee Palpitations Pneumonia Shortness of breath Staphylococcal infection Stroke ([facility]) TIA (transient ischemic attack) due to Bromocriptine Tinea corporis UTI (urinary tract infection) Food logs: Yes-pen and paper Food choices: ground chicken, eggs, creamed soups (mushroom or tomato), cream of wheat occ, cottage cheese, croatian yogurt-light and fit, protein bar from [employer]. Unable to keep protei n shakes down. Fluid choices: water-4-5 bottles per day Supplementation: Flinstones, iron, vitamin D, vitamin C, Citracal supplement x 2 in the mor eusebio and 2 at night, magnesium, potassium, Q25-ilyqqotz today Assessment: Vomiting likely due to volume [...] multivitamin & mineral (with iron) supplement, 2/day -2484-9154 mg calcium citrate with vitamin D/day (take in divided doses, not within 2 hour s of multivitamin or iron supplement) -500 mcg/day sublingual B12 supplement (or monthly injections) Continued to reinforce importance of mindful eating. Continue to increase physical activity. Follow up in [address],[place] Pager# [phone] Phone: [phone] documented in this en counter Plan of Treatment +--------+---------+ + + + | Date | Type | Specialty | Care Team | Description | +--------+---------+ + + + | 03/15/ | Office | Cardiology | Randell Franks, | | | 2019 | Visit | | [address] | | | | | | [place], [place] | | | | | | [address] | | | | | | [phone] | | | | | | | | +--------+---------+ + + + documented as of this encounter Procedures + +--------+ + + + | Procedure Name | Priori | Date/Time | Associated Diagnosis | Comments | | | ty | | | | + +--------+ + + + | IN MNT RE-ASSESSMNT | Routin | 04/01/2018 | History of | | | X15MIN | e | 12:23 PM | Frandy-en-Y gastric | | | | | PDT | bypass Diabetes | | | | | | mellitus with | | | | | | insulin therapy | | | | | | ([facility]) | | + +--------+ + + + documented in this encounter Visit Diagnoses + + | Diagnosis | + + | History of Frandy-en-Y gastric bypass - Primary Bariatric surgery status | + + | Diabetes mellitus with insulin therapy (HCC) | + + documented in this encounter
--- OUTSIDE RECORDS SUMMARY | ~2019-12-19 | XMS | Encounter Summary ---
Demographics + + + | Address | [address] | | | [place] [address] | + + + | Home Phone [...] [place], [place] | | | | | [address] | | + + + + + | Ellie Vang | ECON | Unknown | | + + + + + Care Team Providers + +------+ + | Care Information And Data Architect Analyst Name | Role | Phone | [...] Surgery | [address] | Ion Castanon, | LAPAROSCOPIC NISH EN | | 2017 | | [address] | [address] | Y GASTRIC BYPASS | | | | [facility] | [place], [place] | | | | | Hospital Admitting | [address] | | | | | Desk Located on the | [phone] | | | | | 9th floor | | | | | | [place], [place] | | | | | | [address] | | | +--------+---------+ + + + [...] Gavin ACNP - 03/03/2018 9:49 AM PDT [facility] RED SURGERY INPATIENT DISCHARGE SUMMARY Author: KAIN [...] to a bariatric full liquid diets. Our [facility] dietitian was consulted and they discussed [...] at minimum. 5. Follow with PCP for Stereotype Finisher within 1 - 2 weeks of discharge [...] mg by mouth two times daily. CALCIUM CRB&FPA-R4-HJE76-GENIS ORAL Take 2 tablets by mouth two [...] yogurt or kefir. Zaria's Yogurt or Kefir, AdexLinkfield Yogurt, and [employer]Y Storage Systemsn i [place] Yogurt are common brands with beneficial probiotics. [...] are available over the counter at most [facility] stores. Nausea/Vomiting/Difficulty Swallowing Nausea/Vomiting/Difficulty swallowing: Could [...] hours per your instructions. Some medications, like [place], have Tylenol in it. Make sure you [...] (PCP) as this clinic does not provide [facility] services. When to Call [...] hours by calling the surgery office at [phone]. - After hours, weekends and holidays, you may call the hospital winder operator at [phone] an d have the promotions associate Red Surgery Team paged. OTHER DISCHARGE ORDERS [...] at minimum. 5. Follow with PCP for Stereotype Finisher within 1 - 2 weeks of discharge [...] Department Dept Phone Center 03/10/2018 1:30 PM Rust at [facility] 6th Floor [phone] FO OD AND NUT 03/10/2018 3:05 PM Ronna Clarke Digestive [facility] at [facility] 6th Floor [phone] [facility] 04/01/2018 10:30 AM Rust at [facility] 6th Floor [phone] FO OD AND NUT 04/01/2018 11:00 AM Ion Castanon Digestive [facility] at [facility] 6th Floor [phone] [facility] 05/27/2018 2:30 PM Rust at [facility] 6th Floor [phone] FO OD AND NUT 05/27/2018 3:05 PM [facility] 6th Floor [phone] [facility] 05/27/2018 4:30 PM Demar Cueva Pain Center at [facility] 15th Floor [phone] Comprehensiv 06/04/2018 10:35 AM Randell Franks Cardiology Preventive at [facility] [phone] Cardiology Discharging Physician: KAIN Agee Attending Physician: Ion Castanon MD [facility] Red Surgery Pager# [phone] 9:50 AM 03/03/2018 documented in this enco [...] | | 0 | | | | CRB&JMG-V2-[id number]-GEN | mouth two times | | | [...] course, anticipated date of discharge 03/03/18 PARTHA Rajwinder MS3 [facility] School of Medicine Demarcus Menon MD [...] for care ride home (pt lives in [place]) Demarcus Alas M.D. General Surgery Resident PGY-1 Pager: [phone] Ion Ferrari MD - 10:00 AM PDTI [...] [address] | | | | | | [place], [place] | | | | | | [address] | | | | | | [phone] | | | | | | | [...] POC | | PDT | over, adult ([facility]) | results section. | + +--------+ + + + | CAPILLARY BLOOD | Routin | 03/03/2018 | Morbid obesity | Results for this | | GLUCOSE (NO CHG), | e | 7:54 AM | with BMI of 70 and | procedure are in the | | POC | | PDT | over, adult ([facility]) | results section. | + +--------+ + + + | CAPILLARY BLOOD | Routin | 03/03/2018 | Morbid obesity | Results for this | | GLUCOSE (NO CHG), | e | 6:28 AM | with BMI of 70 and | procedure are in the | | POC | | PDT | over, adult ([facility]) | results section. | + +--------+ + + + | CAPILLARY BLOOD | Routin | 03/02/2018 | Morbid obesity | Results for this | | GLUCOSE (NO CHG), | e | 9:17 PM | with BMI of 70 and | procedure are in the | | POC | | PDT | over, adult ([facility]) | results section. | + +--------+ + + + | CAPILLARY BLOOD | Routin | 03/02/2018 | Morbid obesity | Results for this | | GLUCOSE (NO CHG), | e | 6:50 PM | with BMI of 70 and | procedure are in the | | POC | | PDT | over, adult ([facility]) | results section. | + +--------+ + + + | CAPILLARY BLOOD | Routin | 03/02/2018 | Morbid obesity | Results for this | | GLUCOSE (NO CHG), | e | 3:46 PM | with BMI of 70 and | procedure are in the | | POC | | PDT | over, adult ([facility]) | results section. | + +--------+ + + + | CAPILLARY BLOOD | Routin | 03/02/2018 | Morbid obesity | Results for this | | GLUCOSE (NO CHG), | e | 2:36 PM | with BMI of 70 and | procedure are in the | | POC | | PDT | over, adult ([facility]) | results section. | + +--------+ + + + | CAPILLARY BLOOD | Routin | 03/02/2018 | Morbid obesity | Results for this | | GLUCOSE (NO CHG), | e | 1:33 PM | with BMI of 70 and | procedure are in the | | POC | | PDT | over, adult ([facility]) | results section. | + +--------+ + + + | CAPILLARY BLOOD | Routin | 03/02/2018 | Morbid obesity | Results for this | | GLUCOSE (NO CHG), | e | 11:36 AM | with BMI of 70 and | procedure are in the | | POC | | PDT | over, adult ([facility]) | results section. | + +--------+ + + + | CAPILLARY BLOOD | Routin | 03/02/2018 | Morbid obesity | Results for this | | GLUCOSE (NO CHG), | e | 10:32 AM | with BMI of 70 and | procedure are in the | | POC | | PDT | over, adult ([facility]) | results section. | + +--------+ + + + | CAPILLARY BLOOD | Routin | 03/02/2018 | Morbid obesity | Results for this | | GLUCOSE (NO CHG), | e | 9:23 AM | with BMI of 70 and | procedure are in the | | POC | | PDT | over, adult ([facility]) | results section. | + +--------+ + + + | CAPILLARY BLOOD | Routin | 03/02/2018 | Morbid obesity | Results for this | | GLUCOSE (NO CHG), | e | 8:36 AM | with BMI of 70 and | procedure are in the | | POC | | PDT | over, adult ([facility]) | results section. | + +--------+ + + + | CAPILLARY BLOOD | Routin | 03/02/2018 | Morbid obesity | Results for this | | GLUCOSE (NO CHG), | e | 7:35 AM | with BMI of 70 and | procedure are in the | | POC | | PDT | over, adult ([facility]) | results section. | + +--------+ + + + | CAPILLARY BLOOD | Routin | 03/02/2018 | Morbid obesity | Results for this | | GLUCOSE (NO CHG), | e | 6:33 AM | with BMI of 70 and | procedure are in the | | POC | | PDT | over, adult ([facility]) | results section. | + +--------+ + + + | CAPILLARY BLOOD | Routin | 03/02/2018 | Morbid obesity | Results for this | | GLUCOSE (NO CHG), | e | 5:28 AM | with BMI of 70 and | procedure are in the | | POC | | PDT | over, adult ([facility]) | results section. | + +--------+ + + + | CAPILLARY BLOOD | Routin | 03/02/2018 | Morbid obesity | Results for this | | GLUCOSE (NO CHG), | e | 4:36 AM | with BMI of 70 and | procedure are in the | | POC | | PDT | over, adult ([facility]) | results section. | + +--------+ + + + | CAPILLARY BLOOD | Routin | 03/02/2018 | Morbid obesity | Results for this | | GLUCOSE (NO CHG), | e | 2:46 AM | with BMI of 70 and | procedure are in the | | POC | | PDT | over, adult ([facility]) | results section. | + +--------+ + + + | CAPILLARY BLOOD | Routin | 03/02/2018 | Morbid obesity | Results for this | | GLUCOSE (NO CHG), | e | 12:32 AM | with BMI of 70 and | procedure are in the | | POC | | PDT | over, adult ([facility]) | results section. | + +--------+ + + + | CAPILLARY BLOOD | Routin | 03/01/2018 | Morbid obesity | Results for this | | GLUCOSE (NO CHG), | e | 10:31 PM | with BMI of 70 and | procedure are in the | | POC | | PDT | over, adult ([facility]) | results section. | + +--------+ + + + | CAPILLARY BLOOD | Routin | 03/01/2018 | Morbid obesity | Results for this | | GLUCOSE (NO CHG), | e | 8:21 PM | with BMI of 70 and | procedure are in the | | POC | | PDT | over, adult ([facility]) | results section. | + +--------+ [...] POC | | PDT | over, adult ([facility]) | results section. | + +--------+ + + + | CAPILLARY BLOOD | Routin | 03/01/2018 | Morbid obesity | Results for this | | GLUCOSE (NO CHG), | e | 3:31 PM | with BMI of 70 and | procedure are in the | | POC | | PDT | over, adult ([facility]) | results section. | + +--------+ + + + | CAPILLARY BLOOD | Routin | 03/01/2018 | Morbid obesity | Results for this | | GLUCOSE (NO CHG), | e | 3:29 PM | with BMI of 70 and | procedure are in the | | POC | | PDT | over, adult ([facility]) | results section. | + +--------+ + + + | CAPILLARY BLOOD | Routin | 03/01/2018 | Morbid obesity | Results for this | | GLUCOSE (NO CHG), | e | 2:30 PM | with BMI of 70 and | procedure are in the | | POC | | PDT | over, adult ([facility]) | results section. | + +--------+ + + + | CAPILLARY BLOOD | Routin | 03/01/2018 | Morbid obesity | Results for this | | GLUCOSE (NO CHG), | e | 1:35 PM | with BMI of 70 and | procedure are in the | | POC | | PDT | over, adult ([facility]) | results section. | + +--------+ + + + | CAPILLARY BLOOD | Routin | 03/01/2018 | Morbid obesity | Results for this | | GLUCOSE (NO CHG), | e | 12:16 PM | with BMI of 70 and | procedure are in the | | POC | | PDT | over, adult ([facility]) | results section. | + +--------+ [...] POC | | PDT | over, adult ([facility]) | results section. | + +--------+ + + + | LAPAROSCOPIC | Electi | 03/01/2018 | Morbid obesity | | | NISH-EN-Y GASTRIC | ve | 8:31 AM | ([facility]) | | | BYPASS | Surgic [...] AMES | [address] | [place], [place] | | | [facility] | [address] | [address] | | | TESTS | | | [...] MARQUAM | [address] | [place] | | | [facility] | [address] | [address] | | | TESTS | | | [...] - MARQUAM | [address] | [place], [place] | | | [facility] | [address] | [address] | | | TESTS | | | [...] AMES | [address] | [place], [place] | | | [facility] | [address] | [address] | | | TESTS | | | [...] MARQUAM | [address] | [place], [place] | | | [facility] | [address] | [address] | | | TESTS | | | [...] MARQUAM | [address] | [place], [place] | | | [facility] | [address] | [address] | | | TESTS | | | [...] AMES | [address] | [place], [place] | | | [facility] | [address] | [address] | | | TESTS | | | [...] MARQUAM | [address] | [place], [place] | | | [facility] | [address] | [address] | | | TESTS | | | [...] MARQUAM | [address] | [place], [place] | | | [facility] | [address] | [address] | | | TESTS | | | [...] AMES | [address] | [place], [place] | | | [facility] | [address] | [address] | | | TESTS | | | [...] MARQUAM | [address] | [place], [place] | | | [facility] | [address] | [address] | | | TESTS | | | [...] MARQUAM | [address] | [place], [place] | | | [facility] | [address] | [address] | | | TESTS | | | [...] AMES | [address] | [place], [place] | | | [facility] | [address] | [address] | | | TESTS | | | [...] MARQUAM | [address] | [place], [place] | | | [facility] | [address] | [address] | | | TESTS | | | [...] MARQUAM | [address] | [place], [place] | | | [facility] | [facility] | [address] | | | TESTS | | | [...] AMES | [address] | [place], [place] | | | [facility] | [facility] | [address] | | | TESTS | | | [...] MARQUAM | [address] | [place], [place] | | | [facility] | [address] | [address] | | | TESTS | | | [...] [facility] | [address] | [place], [place] | | | [facility] | [address] | [address] | | | TESTS | | | [...] 70 - 99 mg/dL | [facility] - | | | GLUCOSE, [...] AMES | [address] | [place], [place] | | | [facility] | [address] | [address] | | | TESTS | | | [...] MARQUAM | [address] | [place], [place] | | | [facility] | [address] | [address] | | | TESTS | | | [...] - MARQUAM | [address] | [place], [place] | | | [facility] | [address] | [address] | | | TESTS | | | [...] AMES | [address] | [place], [place] | | | [facility] | [address] | [address] | | | TESTS | | | [...] MARQUAM | [address] | [place], [place] | | | [facility] | [address] | [address] | | | TESTS | | | [...] MARPATAM | [address] | [place], [place] | | | [facility] | [address] | [address] | | | TESTS | | | [...] AMES | [address] | [place], [place] | | | [facility] | [address] | [address] | | | TESTS | | | [...] MARQUAM | [address] | [place], [place] | | | [facility] | [address] | [address] | | | TESTS | | | | + + + + + EGD (ESOPHAGOGASTRODUODENOSCOPY) (03/01/2018 11:21 AM PDT) + + + | Narrative | Performed At | + + + | Ion Castanon MD 03/01/2018 12:25 PM Date of Procedure: | | | 03/01/18 Primary Surgeon: Ion Castanon MD Co Surgeon or | | | paraprofessional education assistant: Eldon Gonzalez MD, Chief Resident Alexx [...] The jejunum was divided with 60 mm Bartelso stapler with white | | | load [...] created in each limb and a 60mm Bartelso stapler | | | with white load was fired to create a [id number]-[id number] | | | jejunojejunostomy. The anastamosis was confirmed to be widely | | | patent and hemostatic. The common enterotomy was closed by placing | | | 2 stay sutures along the enterotomy for retraction and firing an | | | Bartelso 60mm stapler with white load across the [...] | | | was entered. The 60mm Bartelso stapler with blue load was placed | [...] blue load of the 60mm stapler. The Bartelso was then fired | | | longitudinally towards the angle of His to create the gastric pouch, | | | leaving the gastrotomy from foreign body removal, on the pouch. | | | Dissection was performed retrogastric to connect posterior and | | | anterior dissection planes and ensure adequate fundus exclusion. | | | Additional fires of the Bartelso stapler were performed with blue | | [...] with | | | 5 mm clip sparmaker. A 25mm Orvil was passed transorally by [...] was closed with 60mm | | | Bartelso stapler with a white load. Medially and [...] was present | | | as my paraprofessional education assistant for the entire procedure, given the technically | | | challenging nature of this procedure. She assisted in all critical | | | steps of the procedure. Dr. Gonzalez was present for endoscopy at the | | | end of the procedure. Ion Castanon MD, FACS, [facility] | | | Bariatric Surgery | | [...] MD Co Surgeon or | | | paraprofessional education assistant: Eldon Gonzalez MD, Chief Resident Alexx [...] The jejunum was divided with 60 mm Bartelso stapler with white | | | load [...] created in each limb and a 60mm Bartelso stapler | | | with white load was fired to create a [id number]-[id number] | | | jejunojejunostomy. The anastamosis was confirmed to be widely | | | patent and hemostatic. The common enterotomy was closed by placing | | | 2 stay sutures along the enterotomy for retraction and firing an | | | Bartelso 60mm stapler with white load across the [...] | | | was entered. The 60mm Bartelso stapler with blue load was placed | [...] blue load of the 60mm stapler. The Bartelso was then fired | | | longitudinally towards the angle of His to create the gastric pouch, | | | leaving the gastrotomy from foreign body removal, on the pouch. | | | Dissection was performed retrogastric to connect posterior and | | | anterior dissection planes and ensure adequate fundus exclusion. | | | Additional fires of the Bartelso stapler were performed with blue | | [...] with | | | 5 mm clip sparmaker. A 25mm Orvil was passed transorally by [...] was closed with 60mm | | | Bartelso stapler with a white load. Medially and [...] was present | | | as my paraprofessional education assistant for the entire procedure, given the technically | | | challenging nature of this procedure. She assisted in all critical | | | steps of the procedure. Dr. Gonzalez was present for endoscopy at the | | | end of the procedure. Ion Castanon MD, FACS, [facility] | | | Bariatric Surgery | | [...] [place] | [address] | [place] | | | [facility] | [address] | [address] | | | TESTS | | | [...] 5:02 | | | | | on 03/01/18 at 1630, Until | | PM PDT [...]
--- OUTSIDE RECORDS SUMMARY | ~2019-12-19 | XMS | Encounter Summary ---
Demographics + + + | Address | [address] | | | [place] [address] | + + + | Home Phone [...] + | Katalina Padilla | ECON | [address] | | | | | [place], [place] | | | | | [address] | | + + + + + | Ellie Vang | ECON | Unknown | | + + + + + Care Team Providers + +------+ + | Care Professor Of Business Administration Name | Role | Phone | + [...] | 2018 | Visit | Preventive at [facility] | [address] | mellitus without | | | | [address] | [place], [place] | complication, with | | | | Mailcode: [facility] | [address] | long-term current | | | | [facility] | [phone] | use of insulin ([facility]) | | | | and Healing, | | (Primary Dx); | | | | [address] | | Chronic right-sided | | | | [place], [place] | | heart failure (HCC) | | | | [address] | | | | | | [phone] | | | +--------+---------+ + + + [...] management of her heart failure by her Dealer Compliance Representative 3) Check A1c, lipids 4) Await bariatric surgery in February 2018 5) Continue phentermine 37.5 mg daily 6) Continue wound care, non-pressure ambulation of right foot wound 7) Follow-up 4-6 months In the interim, the patient underwent bariatric surgery and was discharged from the [facility] on 03/03/2018. Today, the patient [...] 06/23 - She is working with the hot press operator in her office - She is taking [...] tongue once daily., Disp: , Rfl: CALCIUM CRB&JEA-J1-ZZN39-GENIS ORAL, Take 2 tablets by mouth two [...] 3.19 11/28/2016 Lab Results Component Value Date [id number] 88.6 05/27/2018 Lab Results Component Value Date [...] weight of 320lbs. Plan to work with hot press operator from bariatric surgery, identify etio logy of [...] is currently being managed well by her Dealer Compliance Representative with diuretics and mainte nance of her [...] Gissell Clements MD Fellow, Cardiovascular Medicine Pager [phone] signed by Gissell Clements MD at 06/04/2018 [...] [address] | | | | | | [place], [place] | | | | | | [address] | | | | | | [phone] | | | | | | | [...]
--- OUTSIDE RECORDS SUMMARY | ~2019-12-19 | XMS | Encounter Summary ---
Demographics + + + | Address | [address] | | | [place] [address] | + + + | Home Phone [...] + | Katalina Padilla | ECON | [address] | | | | | [place], [place] | | | | | [address] | | + + + + + | Ellie Vang | ECON | Unknown | | + + + + + Care Team Providers + +------+ + | Care Electronic Data Processing Auditor Name | Role | Phone | [...] | Pain | Diagnoses | Analisa Georges Junior Bookkeeper Psych | | | | Management | Morbid | DANIELLE BrunerP | [address] | | | | | obesity with | [address] | | | | | BMI of [address] | [address] | Mailcode: | | | | | and over, | [place], [place] | [facility] | | | | | adult (HCC) | [address] | for Health | | | | | Procedures | Phone: | and Healing, | | | | | CONSULT TO | [phone] | Building 1, | | | | | PAIN | Fax: | 15th Floor | | | | | MANAGEMENT | [phone] | [place], [place] | | | | | [place] | | [address] | | | | | PSYCHIATRIC | | Phone: | | | | | DIAGNOSTIC | | [phone] | | | | | EVAL, NO MED | | Fax: | | | | | [facility] [place] | | [phone] | | | | | PSYCH TSTNG [...] | [facility] | | | with QUICK MIXER OPERATOR | | hypertension | [address] | [address] | | | | | Right | [address] | [address] | | | | | heart | [place], [place] | Mailcode: | | | | | failure | [address] | Center for | | | | | ([facility]) Type | Phone: | Health and | | | | | 2 diabetes | [phone] | Healing, | | | | | mellitus | Fax: | Building 2 | | | | | without | [phone] | [place], [place] | | | | | complication | | [address] | | | | | , with | | Phone: | | | | | long-term | | [phone] | | | | | current use | | Fax: | | | | | of insulin | | [phone] | | | | | ([facility] | | [address] | Ave [place], [place] | adult ([facility]) (Primary | | | | Mailcode: Center | [address] | Dx); Chronic | | | | for Health and | | diastolic heart | | | | Healing, Building 2 | | failure ([facility]); | | | | [place], [place] | | Immobility; Severe | | | | [address] | | muscle | | | | [...] | | | | ([facility]); | [...] encounter Patient Instructions Patient Instructions Shereen Georges, [facility] - 02/02/2017 9:00 AM PDTPlan: The [...] to your private appointme nt with the it administrative assistant. These classes will be scheduled apporoximately 1 month apart to allow time for you to put the teaching into action. Please call [phone] + Labs needed: Pre op: drug screen [...] are done + EKG: Please Have your director career do the eval and send it to us + Pre-op Psychological Evaluation: Your referral is at [facility], The Pain Management Office will call [...] be safely completed. + Sign up for ThoughtBox so that we can communicate easily back and forth Once the above list is completed and copies have been received by our office, we will submi t for insurance authorization then schedule with the surgeon. KAIN De Dios DNP, INJURY/SAFETY HAZARD ASSESSMENT Nurse Practitioner for Bariatric Surgery [facility] | [address] | [place], [place] | [address] | documented in this encounter Progress Notes Shereen Georges ACNP - 02/02/2017 9:00 AM PDTFormatting of this note might be different f rom the original. BARIATRIC INITIAL VISIT Provider: Shereen Pinto DNP, KAIN, INJURY/SAFETY HAZARD ASSESSMENT Referring Provider: Fadi Goodrich DO Reason for [...] C (98.6 F), temperature source Oral, r adalbetro. rate 16, height 1.549 m (5' 1"), weight 182.1 kg (401 lb 6.4 oz), SpO2 94 %. Body mass index is 75.84 kg/(m^2). History of Present Illness: She is a morbidly obese, 41 y.o. female with a BMI of 75 who h as failed prior attempts at sustained dietary/medical weight loss and desires surgical weigh t loss. Consults: Cardiology: Dr. Edson Livingston [facility] Payroll And Benefits Analyst: Nickie : [facility] Paula But comes to magen Barrel Leveler at [facility]: Dr. Zhong for weight loss medication Buddhism or cultural reason you would refuse blood [...] once daily., Disp : , Rfl: CALCIUM CRB&EOC-Z8-BIT36-GENIS ORAL, Take 2 tablets by mouth two [...] rhinitis Anemia Anxiety Bipolar disorder ([facility]) Chronic wound infection of abdomen from [...] Dr. Andie Brian Incisional hernia repair 03/01/2015 [facility]/ Dr. Cantu. Primary fascial [...] History Narrative Updated 11/09/15 She lives in [place] with her mother and her sister (also her caregiver) lives in an [facility] below. She has 2 grandchildren (age 4 and 7) who live with her daughter and son-in-law Her boyfriend lives in [place] Family History Problem Relation Heart Attack Father [...] extre mity edema, hypertension, hyperlipidemia. Denies CHF, PA, ischemic heart disease, or pulmon nikki hypertension. [...] years without success. She qual[facility] to control co-morbidities. [...] management, and was referred as well to irrigator valve pipe. Plan: Request that her director career clear her, and make recommendations 3. Mammogram: [...] to your private appointme nt with the it administrative assistant. These classes will be scheduled apporoximately 1 month apart to allow time for you to put the teaching into action. Please call [phone] + Labs needed: lipids, CBC, CMP, TSH, [...] are done + EKG: Please Have your director career do the eval and send it to us + Pre-op Psychological Evaluation: Your referral is at [facility], The Pain Management Office will call [...] be safely completed. + Sign up for ThoughtBox so that we can communicate easily back and forth Once the above list is completed and copies have been received by our office, we will submi t for insurance authorization then schedule with the surgeon. KAIN De Dios DNP, INJURY/SAFETY HAZARD ASSESSMENT Nurse Practitioner for Bariatric Surgery [facility] | [address] | [place], [place] | [address] | documented in this encounter Plan of Treatment +--------+---------+ + + + | Date | Type | Specialty | Care Team | Description | +--------+---------+ + + + | 03/15/ | Office | Cardiology | Randell Zhong, | | | 2019 | Visit | | MD [address] | | | | | | [place], [place] | | | | | | [address] | | | | | | [phone] | | | | | | | [...]
--- OUTSIDE RECORDS SUMMARY | ~2019-12-19 | XMS | Encounter Summary ---
Demographics + + + | Address | [address] | | | [place] [address] | + + + | Home Phone [...] [place], [place] | | | | | [address] | | + + + + + | Ellie Vang | ECON | Unknown | | + + + + + Care Team Providers + +------+ + | Care Mill Roll Rewinder Name | Role | Phone | + +------+ + | Fadi Goodrich DO | PCP | | + +------+ + Encounter Details +--------+------+ + + + | Date | Type | Department | Care Team | Description | +--------+------+ + + + | 08/28/ | Lab | Laboratory at [facility] | | Type 2 diabetes | | 2015 | | [address] | | mellitus (HCC) | | | | [place], [place] | | | | | | [address] | | | | | | [phone] | | | +--------+------+ + + + [...] [address] | | | | | | [place], [place] | | | | | | [address] | | | | | | [phone] | | | | | | | [...] | + + + + + | [facility] | [address] [facility] [facility] [address] | [place] [address] | | | SERVICES, CORE | PARK [...] [facility] | [address] | [place] [address] | | | SERVICES, SPECIAL | PARK [...]
--- OUTSIDE RECORDS SUMMARY | ~2019-12-19 | XMS | Encounter Summary ---
Demographics + + + | Address | [address] | | | [place] [address] | + + + | Home Phone [...] + | Katalina Padilla | ECON | [address] | | | | | [place], [place] | | | | | [address] | | + + + + + | Ellie Vang | ECON | Unknown | | + + + + + Care Team Providers + +------+ + | Care Back Tender Paper Machine Name | Role | Phone | [...] | | | | | | [place], [place] | | | | | | [address] | | | | | | [phone] | | | +--------+ + + + [...] [address] | | | | | | [place], [place] | | | | | | [address] | | | | | | [phone] | | | | | | | | +--------+---------+ + + + documented as of this encounter Visit Diagnoses Not on filedocumented in this encounter"
--- OUTSIDE RECORDS SUMMARY | ~2019-12-19 | XMS | Encounter Summary ---
Demographics + + + | Address | [address] | | | [place] [address] | + + + | Home Phone [...] | Organization | [facility] | | | and Jeffana [...] Team Providers + +------+ + | Care Brand Designer Name | Role | Phone | + +------+ + PCP | Unavailable | + +------+ + Encounter Details +--------+ + + + + | Date | Type | Department | Care Team | Description | +--------+ + + + + | 08/31/ | Hospital | [facility] | Erich Wells | | | 2004 | Encounter | MED CTR SLEEP | MD Michael [address] | | | | | CENTER [address] [place] | | | | | [place], [place] | [place] [address] | | | | | [address] | [phone] | | | | | [phone] | | | +--------+ + + + [...] [address] | | | | | | [place] [address] | | | | | | [phone] | | | | | | | | +--------+---------+ + + + documented as of this encounter Visit Diagnoses Not on filedocumented in this encounter"
--- OUTSIDE RECORDS SUMMARY | ~2019-12-19 | XMS | Encounter Summary ---
[...] [place], [place] | | | | | [address] | | + + + + + | Ellie Vang | ECON | Unknown | | + + + + + Care Team Providers + +------+ + | Care Book Solicitor Name | Role | Phone | + +------+ + | Fadi Goodrich DO | PCP | | + +------+ + Encounter Details +--------+------+ + + + | Date | Type | Department | Care Team | Description | +--------+------+ + + + | 08/28/ | Lab | Laboratory at [facility] | | Type 2 diabetes | | 2015 | | [address] | | mellitus (HCC) | | | | [place], [place] | | | | | | [address] | | | | | | [phone] | | | +--------+------+ + + + [...] [address] | | | | | | [place], [place] | | | | | | [address] | | | | | | [phone] | | | | | | | [...] + | [facility] | [address] | [place] [address] | | | SERVICES, CORE | PARK [...] + + | [facility] | [address] | [place] [address] | | | SERVICES, SPECIAL | PARK [...]
--- OUTSIDE RECORDS SUMMARY | ~2019-12-19 | XMS | Encounter Summary ---
Demographics + + + | Address | [address] | | | [place] [address] | + + + | Home Phone [...] [place], [place] | | | | | [address] | | + + + + + | Ellie Vang | ECON | Unknown | | + + + + + Care Team Providers + +------+ + | Care Staff Scientist Name | Role | Phone | + [...] | | | | | bypass | [place], | [facility], | | | | | Nausea and | [place] | 10th Floor | | | | | vomiting, | [address] | [place], [place] | | | | | intractabili | Phone: | [phone] | | | | | ty of | | Phone: | | | | | vomiting not | Fax: | [phone] | | | | | specified, | [phone] | Fax: | | | | | unspecified | | [phone] | | | | | vomiting | [...] | | | | | | CONTRAST [place] | | | | | | | CT SCAN OF | | | | | | | ABDOMEN | | | | | | | CONTRAST NC | | | | | | | [...] | | | | | bypass | [place], | Mailcode: | | | | | Nausea and | [place] | [facility] | | | | | vomiting, | [address] | for Health | | | | | intractabili | Phone: | and Healing, | | | | | ty of | [phone] | Building 1, | | | | | vomiting not | Fax: | 5th Floor | | | | | specified, | [phone] | [place], [place] | | | | | unspecified | | [address] | | | | | vomiting | | Phone: | | | | | type | | [phone] | | | | | Diarrhea, | [...] Closed | | Gastroenterol | Diagnoses | [facility], | Gas Endo | | | | ogy | History of | Keren W, | [address] | | | | | Nilesh-en-Y | AGACNP [address] | | | | | gastric | [address] | Mailcode: | | | | | bypass | [place], | [address] | | | | | Nausea and | [place] | for Health | | | | | vomiting, | [address] | and Healing, | | | | | intractabili | Phone: | Building 2 | | | | | ty of | | [place], [place] | | | | | vomiting not | Fax: | [address] | | | | | specified, | [phone] | Phone: | | | | | unspecified | | [phone] | | | | | vomiting | | Fax: | | | | | type | | [phone] | | | | | Diarrhea, | [...] | | | | | | | NC UPPER GI | | | | | [...] | [facility] | | | with PAPER TWISTER TENDER | | hypertension | [address] | [address] | | | | | Right | [address] | [address] | | | | | heart | [facility] [place] | Mailcode: | | | | | failure | [address] | [place] for | | | | | ([facility]) Type | Phone: | Health and | | | | | 2 diabetes | [phone] | Healing, | | | | | mellitus | Fax: | Building 2 | | | | | without | [phone] | [place], [place] | | | | | complication | | [address] | | | | | , with | | Phone: | | | | | long-term | | | | | | | current use | | Fax: | | | | | of insulin | | [phone] | | | | | ([facility]) | | | | | | | [...] Center at [facility] [address] | AGACNP [address] | gastric bypass | | | | [address] | Ave [place], [place] | (Primary Dx); Nausea | | | | Mailcode: Center | [address] | and vomiting, | | | | for Health and | | intractability of | | | | Healing, Building 2 | | vomiting not | | | | [place], [place] | | specified, | | | | [address] | | unspecified vomiting | | | | [phone] | | type; Diarrhea, | | | [...] getting fluids at a local clinic in [place] -I will contact you if further testing is indicated -follow up with once of our surgeons once testing is complete -get some protein de la o--isopure or premier protein de la o. documented in this encounter Progress Notes Melissa Garay RN - 03/01/2019 1:50 PM PDTSpoke with patient's PCP office [phone] and notified them that Infusion unit at [facility] (fax [phone]) requires a provider with privileges there to sign the IV infusion orders. Since Dr. Cardenas is out on maternity leave, SOFI Ulrich will check with provider covering. Infusion order and chart not e faxed to PCP at [phone]. Patient notified. harli Zayas - 03/01/2019 1:50 PM PDTPatient presents for blo od draw per Providers order Site: LEFT A/C Time: 14:30 Patient tolerated well; ONE ATTEMPT Keren Arcos AGACN - 03/01/2019 1:50 PM PDT BARIATRIC SURGERY [...] vagina Allergic rhinitis Anemia Anxiety Bipolar disorder ([facility]) Chronic wound infection of abdomen from 2010 Cough Depression Diverticulitis of colon Dizziness Glaucoma Heart burn Hemorrhoids Hernia of abdominal wall Incisional hernia, incarcerated 2012 Insomnia Irregular periods Kidney stone Leaking of urine Leg sore Lymphedema Morbid obesity with body mass index of 70 and over in adult ([facility]) Myalgia and myositis Nausea Neck pain Numbness Osteoarthritis of knee Palpitations Pneumonia Shortness of breath Staphylococcal infection Stroke ([facility]) TIA (transient ischemic attack) due to Bromocriptine Tinea corporis UTI (urinary tract infection) Past Surgical History Procedure Laterality Date Tonsillectomy and adenoidectomy Appendectomy, open 2010 Umbilical hernia repair 2010 Treatment of ankle fracture with screws remaining Incision and drainage of wound abscess x2 midline transverse wound s/p open appendectomy 2010 Ventral hernia repair 10/2012 Dr. Andie Brian Incisional hernia repair 03/01/2015 [facility]/ Dr. Cantu. Primary fascial closure and scar excision Lap gastric byp, and nilesh-en-y gastroenterostomy w/ nilesh limb 150 cm or less [facility] Social History Socioeconomic History Marital status: [...] file Gets together: Not on file Attends sabianist service: Not on file Active member of club or organization: Not on file Attends meetings of clubs or organizations: Not on file Relationship status: Not on file Other Topics Concern Not on file Social History Narrative Updated 11/09/15 She lives in [place] with her mother and her sister (also her caregiver) lives in an apa rtment/duplex below. She has 2 grandchildren (age 4 and 7) who live with her daughter and son-in-law Her boyfriend lives in [place] HFpEF, DM2, HTN, Sleep Apnea (unable to [...] program here and refer her to our information specialist who also has expertise in physical [...] buccal film, , Disp: , Rfl: CALCIUM CRB&RYY-G7-AOZ18-GENIS ORAL, Take 2 tablets by mouth two [...] oral tablet, Take 1 tablet by mo [facility] once daily., Disp: 90 tablet, Rfl: 1 [...] be administered closer to her home in [place]. LR 1-2 L 3 times weekly, until [...] to plan and will call and/or send [employer] message if any issues. Start time 1422, end time 1455. I spent a total of 33 minutes face to face with this patie nt. Over 50% of visit was in counseling. ALBINA Perrin Bariatric Surgery Nurse Practitioner [facility] | [address] | [place] | [address] | documented in th is encounter Plan of Treatment +--------+---------+ + + + | Date | Type | Specialty | Care Team | Description | +--------+---------+ + + + | 03/15/ | Office | Cardiology | Randell Franks, | | | 2019 | Visit | | [address] | | | | | | [place], [place] | | | | | | [address] | | | | | | [phone] | | | | | | | [...] now presented. | | | |Final signature: aMe Fierro MD 03/08/2019 3:32 PM | |Preliminary: [...] | + + + + + | [facility] | [address] | [place] [address] | | | SERVICES, CORE | PARK [...] B: | | | | | | [employer].com/CSPerformed | | | | | | by [facility],[address] | | | | | | [place] | | | | | | [address] | | | | | | [phone].[employer]. | | | | | | Ismael [...] | + + + + + | [facility] | [address] | [place], [place] | | | UNIV PTH - INTFC | | [address] | | + + + + + [...] [facility] | | | (YEN NOAH) | [facility],[address] | | REG UNIV | | | SERUM | [address] [facility] | | PTH - INTFC | | | | [address] | | | | | | [phone].[email or web address]. | | | | | | comIsmael [...] B: | | | | | | 3nderlab.[employer]/CS | | | | + + + + + + + + | Specimen | + + | Blood - Blood | | (substance) | + + + + + + + | Performing | Address | City/State/Zipcode | Phone Number | | Organization | | | | + + + + + | [facility] | [address] | [place], [place] | | | UNIV PTH - INTFC | | [address] | | + + + + + [...] | | >18years: Deficiency: <20 ng/mL | CLAIRE CORE | | Insufficiency: 20-29 ng/mL | | | Optimum Level: 30-80 ng/mL High: | | | 81-150 ng/ml Toxic: >150 ng/mL | | + + + + + + + + | Performing | Address | City/State/Zipcode | Phone Number | | Organization | | | | + + + + + | [facility] | [address] | [place] [address] | | | CLAIRE, LYDIA | PARK [...] | + + + + + | [facility] | [address] | [place] [address] | | | LYDIA RANGEL | CLARENCE [...] | | | | | determined by [employer] | | | | | | Laboratories. See | | | | | | Compliance Statement B: | | | | | | [employer]/CSPerformed | | | | | | by [employer],[address] | | | | | | Natalia [address]arson, [facility],[place] | | | | | | [address] | | | | | | [phone].[email or web address]. | | | | | | com, [...] [facility] | [address] | [place], [place] | | | UNIV PTH - INTFC | | [address] | | + + + + + [...] INTFC | | | | determined by [employer] | | | | | | [employer]. See | | | | | | Compliance Statement B: | | | | | | [employer]/CSPerformed | | | | | | by [employer],[address] | | | | | | [place], [place] | | | | | | [address] | | | | | | [phone].[employer]. | | | | | | [facility] hospitalIsmael MD, | | | | | [...] [facility] | [address] | [place], [place] | | | UNIV PTH - INTFC | | [address] | | + + + + + [...] | + + + + + | [facility] | [address] | [place] [address] | | | SERVICES, CORE | CLARENCE [...] | | | | determined by [facility] | | | | | | Laboratories. See | | | | | | Compliance Statement B: | | | | | | [employer]/CSPerformed | | | | | | by [employer],[address] | | | | | | [facility] | | | | | | [address] | | | | | | [phone].[employer]. | | | | | | com, [...] [facility] | [address] | [place], [place] | | | UNIV PTH - INTFC | | [address] | | + + + + + [...] | [facility] | [address] | [place] [address] | | | SERVICES, CORE | [address] | | | + + + + + INR (03/01/2019 2:41 PM PDT) + +-------+ + + + | Component | Value | Ref Range | Performed | Pathologist | | | | | At | Signature | + +-------+ + + + | INR | 1.05 | 0.90 - 1.20 INR | [facility] | | | | | | LABORATORY [...] | + + + + + | [facility] | [address] | [place] [address] | | | SERVICES, CORE | PARK [...] | + + + + + | [facility] | [address] | [place] [address] | | | SERVICES, SPECIAL | PARK [...] | + + + + + | [facility] | [address] | [place] [address] | | | LYDIA RANGEL | CLARENCE [...] | | | | | determined by [employer] | | | | | | Laboratories. See | | | | | | Compliance Statement B: | | | | | | [employer]/CSPerformed | | | | | | by [employer],[address] | | | | | | Natalia Parson [facility],[place] | | | | | | [address] | | | | | | [phone].[employer]. | | | | | | com, [...] [facility] | [address] | [place], [place] | | | UNIV PTH - INTFC | | [address] | | + + + + + [...] | | | LABORATORY | | | ENGLISH | | | SERVICES, | | | [...] MDRD equation recommended by the National | PASU | | Kidney Disease Education Program. Estimated [...] [facility] | [address] | [place] [address] | | | SERVICES, CORE | PARK [...]
--- OUTSIDE RECORDS SUMMARY | ~2019-12-19 | XMS | Encounter Summary ---
Demographics + + + | Address | [address] | | | [place] [address] | + + + | Home Phone [...] + | Katalina Padilla | ECON | [address] | | | | | [place], [place] | | | | | [address] | | + + + + + | Ellie Vang | ECON | Unknown | | + + + + + Care Team Providers + +------+ + | Care Nicker And Breaker Name | Role | Phone | + [...] + + | 06/02/ | Telephone-S | Preoperative | | Pre-operative | | 2019 | cheduled | [facility] at | | evaluation | | | | [facility] | | | | | | [address] [place] | | | | | | Mail Code: OC8PM | | | | | | [facility] | | | | | | and Healing, | | | | | | [address] | | | | | | [place], [place] | | | | | | [address] | | | | | | [phone] | | | +--------+ + + + [...] of this encounter Patient Instructions Patient Instructions Aide [place] RN - 06/02/2019 3:23 PM PSTFormatting of this note harriet ht be different from the original. PREOPERATIVE INSTRUCTIONS Pre-surgery "homework" If you have not already done so, please consider getting your flu vaccine before surgery . This is safe and effective before a surgery and recovery. Unless otherwise instructed by your surgeon, stay active between now and surgery, even s triving to increase your activity levels if you can (ex. taking at least one walk daily, chery n around the block). This can help speed your surgery recovery. Surgery Check in Time: you will receive a call 1-3 business days before your surgery confi rming your exact arrival/check-in time for your surgery day. We know that planning for surg eileen can be stressful and involve a lot of family/friend/transportation coordination as well as hotel arrangements. The Preoperative Medicine Clinic does not have access to check in ti [facility], and we encourage you to contact your [...] evening medications On the morning of surgery YOU MAY TAKE the following medications with a sip of water: THYROID (PORK) 30 MG TABLET TOPIRAMATE 50 MG TABLET TORSEMIDE 100 MG TABLET OXYCODONE 5 MG TABLET MECLIZINE 12.5 MG TABLET METOCLOPRAMIDE 10 MG TABLET DOXYCYCLINE HYCLATE 100 MG TABLET ACETAMINOPHEN 500 MG TABLET ALPRAZOLAM 1 MG TABLET On the morning of surgery DO NOT TAKE the following medications: ASCORBIC ACID (VITAMIN C) 500 MG TABLET ATENOLOL 50 MG TABLET CALCIUM [id number]-GENIS ORAL CYANOCOBALAMIN (VIT B-12) 1,000 MCG TABLET STOOL SOFTENER ORAL ENOXAPARIN 120 MG/0.8 ML SUBCUTANEOUS SYRINGE -consult prescribing MD on when to hold medic ation ERGOCALCIFEROL (VITAMIN D2) 50,000 UNIT CAPSULE FERROUS GLUCONATE 324 MG (36 MG IRON) TAB (MG DOSING UPDATE) LURASIDONE 20 MG TABLET MAGNESIUM OXIDE 400 MG (241.3 MG MAGNESIUM) TABLET MULTIVITAMIN TABLET (THERAPEUTIC) HAIR,SKIN AND NAILS ORAL NYSTATIN 100,000 UNIT/GRAM TOPICAL POWDER PAROXETINE 40 MG TABLET POLYETHYLENE GLYCOL 3350 17 GRAM ORAL POWDER PACKET POTASSIUM CHLORIDE 20 MEQ ORAL PACKET PRAMIPEXOLE 0.125 MG TABLET PROMETHAZINE 25 MG TABLET SENNOSIDES 8.6 MG TABLET SPIRONOLACTONE 50 MG TABLET WARFARIN 5 MG TABLET -consult prescribing MD on when to hold medication Other medications not specifically mentioned are at your discretion as to taking or not taking on the morning of surgery. Unless otherwise directed by your surgeon, do not take any Aspirin, fish oil supplements , vitamin E or non-steroidal anti-inflammatory (NSAIDs i.e. Advil, Aleve, Ibuprofen) or herb al supplements 7 days prior to your surgery. These drugs may interfere with normal blood michael tting and may cause excessive bleeding and bruising during or after the surgery. If you are taking Coumadin (warfarin), Plavix or any other blood thinners please let yo ur surgical team know as medication changes may be necessary If you need a pain medication for general purposes, use Tylenol as directed. OK to take it even on the morning of surgery, if needed. If you are in doubt about any medications that you are taking, please contact our office . General Skin Cleansing Instructions for Bathing or Showers with Hibiclens Disclaimers: ? Hibiclens is not to be used on the head or face, keep out of the eyes, ears and mouth. ? Hibiclens is not to be used in the genital area. ? Hibiclens should not be used if you are allergic to chlorhexidine gluconate or any other ingredients in this preparation. Bathe or shower the night before your surgery: [...] regular soap after applying and rinsing Hibiclens. Use Hibiclens for a second day in a row (morning of surgery, as soon as you wake up): ? Shower/bathe again using Hibiclens in the [...] for your check in for surgery. ? Please remember to brush your teeth [...] ch as Uber/Lyft), or public transportation. An Uber/Lyft/show horse driver does not count as the responsible adult who accompanies you. Certified Medical Transport can transport you after surgery as long as a competent adult is waiting for you on arrival at your destination Although not mandatory, it is highly recommended that a patient has a responsible person with you to provide overnight monitoring/support following discharge. If you stayed in the hospital after surgery, please discuss anticipated discharge time a nd plans with your inpatient team so that transportation plans and other going home arrangem ents can be coordinated If you have questions or concerns after you go home, call your doctor s office. If it is after office hours, call the [facility] air gun operator at [phone] and ask them to page him or h er. documented in this encounter Plan of Treatment +--------+---------+ + + + | Date | Type | Specialty | Care Team | Description | +--------+---------+ + + + | 03/15/ | Office | Cardiology | Randell Franks, | | | 2019 | Visit | | [address] | | | | | | [place], [place] | | | | | | [address] | | | | | | [phone] | | | | | | | | +--------+---------+ + + + documented as of this encounter Visit Diagnoses Not on filedocumented in this encounter
--- OUTSIDE RECORDS SUMMARY | ~2019-12-19 | XMS | Encounter Summary ---
Demographics + + + | Address | [address] | | | [place] [address] | + + + | Home Phone [...] + | Katalina Padilla | ECON | [address] | | | | | [place], [place] | | | | | [address] | | + + + + + | Ellie Vang | ECON | Unknown | | + + + + + Care Team Providers + +------+ + | Care Scuba Diving Instructor Name | Role | Phone | + +------+ + | Kenyatta Cardenas MD | PCP | | + +------+ + Reason for Visit + + + | Reason | Comments | + + + | Lab Results | | + + + Encounter Details +--------+ + + + + | Date | Type | Department | Care Team | Description | +--------+ + + + + | 09/25/ | Telephone | Cardiology | Randell Franks, | Lab Results | | 2020 | | Preventive at [facility] | MD [address] | | | | | [address] | [place], [place] | | | | | Mailcode: CH9A | [address] | | | | | [facility] | [phone] | | | | | and [facility], | | | | | | [address] | | | | | | [facility] [place] | | | | | | [address] | | | | | | [phone] | | | +--------+ + + + [...] [place] | | | | | | [address] | | | | | | [phone] | | | | | | | | +--------+---------+ + + + documented as of this encounter Visit Diagnoses Not on filedocumented in this encounter"
--- OUTSIDE RECORDS SUMMARY | ~2019-12-19 | XMS | Encounter Summary ---
Demographics + + + | Address | [address] | | | [place] [address] | + + + | Home Phone [...] [place], [place] | | | | | [address] | | + + + + + | Ellie Vang | ECON | Unknown | | + + + + + Care Team Providers + +------+ + | Care Development Technologist Name | Role | Phone | + +------+ + | Fadi Goodrich DO | PCP | | + +------+ + Encounter Details +--------+ + + + + | Date | Type | Department | Care Team | Description | +--------+ + + + + | 06/17/ | Abstract | Digestive Health | Shereen Georges, | | | 2012 | | Center at [facility] [address] | ACNP [address] | | | | | [address] | Ave [place], [place] | | | | | Mailcode: [place] | [address] | | | | | for Health and | | | | | | [facility] | | | | | | [facility] [place] | | | | | | [address] | | | | | | | [...] [address] | | | | | | [place], [place] | | | | | | [address] | | | | | | [phone] | | | | | | | | +--------+---------+ + + + documented as of this encounter Visit Diagnoses Not on filedocumented in this encounter"
--- OUTSIDE RECORDS SUMMARY | ~2019-12-19 | XMS | Encounter Summary ---
Demographics + + + | Address | [address] | | | [place] [address] | + + + | Home Phone | | + + + | Preferred Language | Unknown | + + + | Marital Status | | + + + | Spiritism Affiliation | Unknown | + + + | Race | Unknown | + + + | Ethnic Group | Unknown | + + + Author + + + | Author | [facility] | | | and [place] | + + + | Organization | [facility] | | | and [...] Team Providers + +------+ + | Care Broomcorn Sorter Name | Role | Phone | + +------+ + PCP | Unavailable | + +------+ + Encounter Details +--------+ + + + + | Date | Type | Department | Care Team | Description | +--------+ + + + + | 12/02/ | Orders Only | [facility] | Conversion | | | 2017 | | NEPHROLOGY JESUS | Transaction, | | | | | [address] | Provider Unknown | | | | | [address] | | | | | | [address] | (Fax) | | | | | [phone] | | | +--------+ + + + [...] [address] | | | | | | [place] [address] | | | | | | [phone] | | | | | | | [...]
--- OUTSIDE RECORDS SUMMARY | ~2019-12-19 | XMS | Encounter Summary ---
Demographics + + + | Address | [address] | | | [place] [address] | + + + | Home Phone | | + + + | Preferred Language | Unknown | + + + | Marital Status | | + + + | Rastafari Affiliation | Unknown | + + + | Race | Unknown | + + + | Ethnic Group | Unknown | + + + Author + + + | Author | and [facility] | | | and [place] | + + + | Organization | and [facility] | | | and Jeffana [...] Team Providers + +------+ + | Care Fine Hairer Name | Role | Phone | + +------+ + | Jorje Hill | PCP | | + +------+ + Encounter Details +--------+ + + + + | Date | Type | Department | Care Team | Description | +--------+ + + + + | 06/17/ | Telephone | [facility] | Christian Dawson, | | | 2018 | | [facility] | [address] | | | | | [address] | [address] | | | | | [place], [place] | [place] [address] | | | | | [address] | [phone] | | | | | [phone] | | | +--------+ + + + [...] [address] | | | | | | [address] | | | | | | [place] [address] | | | | | | [phone] | | | | | | | | +--------+---------+ + + + documented as of this encounter Visit Diagnoses Not on filedocumented in this encounter"
--- OUTSIDE RECORDS SUMMARY | ~2019-12-19 | XMS | Encounter Summary ---
Demographics + + + | Address | [address] | | | [place] [address] | + + + | Home Phone | | + + + | Preferred Language | Unknown | + + + | Marital Status | | + + + | Presybeterian Affiliation | Unknown | + + + | Race | Unknown | + + + | Ethnic Group | Unknown | + + + Author + + + | Author | [facility] | | | and [place] | + + + | Organization | [facility] | | | and [...] Team Providers + +------+ + | Care Joint Sealer Name | Role | Phone | + +------+ + PCP | Unavailable | + +------+ + Encounter Details +--------+ + + + + | Date | Type | Department | Care Team | Description | +--------+ + + + + | 12/02/ | Orders Only | [facility] | Conversion | | | 2017 | | NEPHROLOGY JESUS | Transaction, | | | | | [address] | Provider Unknown | | | | | [address] | | | | | | [address] | (Fax) | | | | | [phone] | | | +--------+ + + + [...] [address] | | | | | | [place] [address] | | | | | | [phone] | | | | | | | [...]
--- OUTSIDE RECORDS SUMMARY | ~2019-12-19 | XMS | Encounter Summary ---
Demographics + + + | Address | [address] | | | [place] [address] | + + + | Home Phone [...] + | Katalina Padilla | ECON | [address] | | | | | [place], [place] | | | | | [address] | | + + + + + | Ellie Vang | ECON | Unknown | | + + + + + Care Team Providers + +------+ + | Care Vice President Consulting Services Name | Role | Phone | + [...] | | | | | bypass | [place], | [facility], | | | | | Nausea and | [place] | [address]th Floor | | | | | vomiting, | [address] | [place], [place] | | | | | intractabili | Phone: | [address] | | | | | ty of | | Phone: | | | | | vomiting not | Fax: | [phone] | | | | | specified, | [phone] | Fax: | | | | | unspecified | | [phone] | | | | | vomiting | [...] | | | | | bypass | [place], | [facility], | | | | | Nausea and | [place] | [address]th Floor | | | | | vomiting, | [address] | [place], [place] | | | | | intractabili | Phone: | [phone] | | | | | ty of | | Phone: | | | | | vomiting not | Fax: | [phone] | | | | | specified, | [phone] | Fax: | | | | | unspecified | | [phone] | | | | | vomiting | [...] | 2019 | Encounter | Services at [facility] | AGACNP [address] | | | | | [address] | [place], [place] | | | | | Lesly Gutiérrez [facility] | [address] | | | | | [address] | [phone] | | | | | [place], [place] | | | | | | [address] | | | | | | [phone] | | | +--------+ + + + [...] | | 0 | | | | [id number] | mouth two times | | | [...] [address] | | | | | | [place], [place] | | | | | | [address] | | | | | | [phone] | | | | | | | [...]
--- OUTSIDE RECORDS SUMMARY | ~2019-12-19 | XMS | Encounter Summary ---
Demographics + + + | Address | [address] | | | [place] [address] | + + + | Home Phone [...] [place], [place] | | | | | [address] | | + + + + + | Ellie Vang | ECON | Unknown | | + + + + + Care Team Providers + +------+ + | Care Herbarium Worker Name | Role | Phone | + +------+ + | Fadi Goodrich DO | PCP | | + +------+ + Encounter Details +--------+ + + + + | Date | Type | Department | Care Team | Description | +--------+ + + + + | 06/09/ | Abstract | Cardiology | Randell Franks, | | | 2015 | | Preventive at [facility] | MD [address] | | | | | [address] | [facility] [place] | | | | | Mailcode: CH9A | [address] | | | | | [facility] | [phone] | | | | | and Healing, | | | | | | [address] | | | | | | [facility] [place] | | | | | | [address] | | | | | | [phone] | | | +--------+ + + + [...] | | 2019 | Visit | | [address] | | | | | | [place], [place] | | | | | | [address] | | | | | | [phone] | | | | | | | | +--------+---------+ + + + documented as of this encounter Visit Diagnoses Not on filedocumented in this encounter"
--- OUTSIDE RECORDS SUMMARY | ~2019-12-19 | XMS | Encounter Summary ---
Demographics + + + | Address | [address] | | | [place] [address] | + + + | Home Phone [...] + | Katalina Padilla | ECON | [address] | | | | | [place], [place] | | | | | [address] | | + + + + + | Ellie Vang | ECON | Unknown | | + + + + + Care Team Providers + +------+ + | Care End Finder Twisting Department Name | Role | Phone | + [...] | | | | | (HCC) | [place], [place] | Hospital, | | | | | Procedures | [address] | 10th Floor | | | | | CT ABDOMEN & | Phone: | [place], [place] | | | | | PELVIS [address]WO | | [address] | | | | | IV CONTRAST | Fax: | Phone: | | | | | NE [address] | [phone] | [phone] | | | | | ABDOMEN&PELV | | Fax: | | | | | IS | | [phone] | | | | | W/CONTRAST | [...] | 2015 | Encounter | Lab at [facility] [address] | | | | | [address] [place] Mailcode: | | | | | | CH3G [facility] | | | | | | Health and Healing, | | | | | | [place] [address], [facility] | | | | | | Floor [place], [place] | | | | | | [address] | | | | | | [phone] | | | +--------+ + + + [...] documented as of this encounter Progress Notes Other, Faculty - 10/12/2014 9:08 AM PDTElectronically signed by Faculty Other at 9:08 AM PDTOther, Faculty - 10/12/2014 9:08 AM PDT documented in this encounter Plan of Treatment +--------+---------+ + + + | Date | Type | Specialty | Care Team | Description | +--------+---------+ + + + | 03/15/ | Office | Cardiology | Randell Franks, | | | 2019 | Visit | | [address] | | | | | | [place], [place] | | | | | | [address] | | | | | | [phone] | | | | | | | [...] + + | JUSTINE PEÑA | [address] | [place] [address] | | | OF CARE TESTS | | | | + + + + + documented in this encounter Visit Diagnoses + + | Diagnosis | + + | Abdominal pain | + + | Morbid obesity (HCC) Morbid obesity | + + documented in this encounter"
--- OUTSIDE RECORDS SUMMARY | ~2019-12-19 | XMS | Encounter Summary ---
Demographics + + + | Address | [address] | | | [place] [address] | + + + | Home Phone [...] + | Katalina Padilla | ECON | [address] | | | | | [place], [place] | | | | | [address] | | + + + + + | Ellie Vang | ECON | Unknown | | + + + + + Care Team Providers + +------+ + | Care Lurer Name | Role | Phone | + [...] | | | | | essential | [address] | | | | | hypertension | [address] | Ave | | | | | Type II or | [address] | [place], [place] | | | | | unspecified | [place], [place] | [address] | | | | | type | [address] | Phone: | | | | | diabetes | Phone: | [phone] | | | | | mellitus | [phone] | Fax: | | | | | without | Fax: | [phone] | | | | | mention of | [phone] | | | | | | complication [...] | 2013 | Visit | Preventive at [facility] | MD [address] | mellitus (HCC) | | | | [address] | [place], [place] | (Primary Dx) | | | | Mailcode: CH9A | [address] | | | | | [facility] | [phone] | | | | | and [place], | | | | | | [address] | | | | | | [place], [place] | | | | | | [address] | | | | | | [phone] | | | +--------+---------+ + + + [...] obesity and T2DM. Since I saw Ms. Liiva singh last, continues on phentermine and 100 [...] Wi ll discuss with Dr. Brian and face hardener her best strategies for meeting weight loss [...] [address] | | | | | | [place], [place] | | | | | | [address] | | | | | | [phone] | | | | | | | [...] | + + + + + | [facility] | [address] | [place] [address] | | | SERVICES, SPECIAL | CLARENCE [...]
--- OUTSIDE RECORDS SUMMARY | ~2019-12-19 | XMS | Encounter Summary ---
Demographics + + + | Address | [address] | | | [place] [address] | + + + | Home Phone [...] [place], [place] | | | | | [address] | | + + + + + | Ellie Vang | ECON | Unknown | | + + + + + Care Team Providers + +------+ + | Care Rn Bsn Name | Role | Phone | + [...] | | 2017 | | Preventive at [facility] | [address] | Request (Ericxiga 5 | | | | [address] | [facility] [place] | mg) | | | | Mailcode: [facility] | [address] | | | | | [facility] | [phone] | | | | | and [address] | | | | | | [address] | | | | | | [place], [place] | | | | | | [address] | | | | | | [phone] | | | +--------+ + + + [...] Ave | | | | | | [place], [place] | | | | | | [address] | | | | | | [phone] | | | | | | | | +--------+---------+ + + + documented as of this encounter Visit Diagnoses Not on filedocumented in this encounter"
--- OUTSIDE RECORDS SUMMARY | ~2019-12-19 | XMS | Encounter Summary ---
Demographics + + + | Address | [address] | | | [place] [address] | + + + | Home Phone [...] + | Katalina Padilla | ECON | [address] | | | | | [place], [place] | | | | | [address] | | + + + + + | Ellie Vang | ECON | Unknown | | + + + + + Care Team Providers + +------+ + | Care Parcel Post Weigher Name | Role | Phone | + [...] Visit | Medicine Clinic at | J, QUALITY ASSURANCE INTERN | (Primary Dx); | | | | [facility] | | Dysphagia, | | | | [address] | | unspecified type; | | | | Mail Code: OC8PM | | Hypertension, | | | | [facility] | | unspecified type; | | | | and Healing, | | Hyperlipidemia, | | | | [address] | | unspecified | | | | [place], [place] | | hyperlipidemia type; | | | | [address] | | Diastolic | | | | [phone] | | congestive heart | | | [...] 06/23/18 1551 | | Chest) | MD aGbe,PhD | | | + + + + [...] | | Endotracheal Tube; 7; Oral; | NEPHROLOGY SOCIAL WORKER | NEPHROLOGY SOCIAL WORKER | | | Cuffed; 06/23/18; 1542 | [...] encounter Patient Instructions Patient Instructions Tiara Mckeon, QUALITY ASSURANCE INTERN - 06/16/2018 3:15 PM [facility] PREOPERATIVE INSTRUCTIONS Please consider having an [...] your procedure. Surgery check-in location: Admitting - [facility] Surgery Check in Time: The Preoperative [...] it is after office hours, call the [facility] slasher operator at [phone] and ask them to page him or [...] weight loss and diuretic tx, follows with activated sludge operator Hypothyroidism stabilized on hormone replacement Type 2 [...] renal failure no electrolyte abnormalities no dialysis Urology/Regional Trainer: Urologic Conditions: nephrolithiasis Endo: Diabetes: type 2 [...] sublingual Place under tongue once daily. CALCIUM [id number]-GENIS ORAL Take 2 tablets by mouth two [...] Bipolar disorder ([facility]) Chronic wound infection of abdomen from 2010 Cough Depression Diverticulitis of colon Dizziness Glaucoma Heart burn Hemorrhoids Hernia of abdominal wall Incisional hernia, incarcerated 2012 Insomnia Irregular periods Kidney stone Leaking of urine Leg sore Lymphedema Morbid obesity with body mass index of 70 and over in adult ([facility]) Myalgia and myositis Nausea Neck pain Numbness Osteoarthritis of knee Palpitations Pneumonia Shortness of breath Staphylococcal infection Stroke ([facility]) TIA (transient ischemic attack) due to Bromocriptine [...] or less 8 [facility] Family history reviewed / [...] weight loss and diuretic tx, follows with activated sludge operator. Appears comp ensated today. Hypothyroidism stabilized on hormone replacement. Take on DOS as usual Type 2 diabetes, well controlled with A1c 6.1 Thank you for the opportunity to contribute to this patient's care. HILDA Lagos [facility] 4TH FLOOR [address] [place] [address] I advised the patient regarding [...] [address] | | | | | | [place], [place] | | | | | | [address] | | | | | | [phone] | | | | | | | [...]
--- OUTSIDE RECORDS SUMMARY | ~2019-12-19 | XMS | Encounter Summary ---
Demographics + + + | Address | [address] | | | [place] [address] | + + + | Home Phone [...] + | Organization | [facility] | | [...] Providers + +------+ + | Care Line And Frame Poler Name | Role | Phone | + +------+ + PCP | Unavailable | + +------+ + Encounter Details +--------+ + + + + | Date | Type | Department | Care Team | Description | +--------+ + + + + | 03/ | Orders Only | [facility] | Dharmesh Escobar, | | | 2018 | | NEPHROLOGY [place] | CLIN NURSE [address] | | | | | [address] | [address] | | | | | [address] [place], [place] | [place] | | | | | [address] | [address] | | | | | [phone] | [phone] | | | | | | | [...] F | | | | | | [place] [address] | | | | | | [phone] | | | | | | | [...] | | | LAB | | | [place] | | | | | + +---------+ [...]
--- OUTSIDE RECORDS SUMMARY | ~2019-12-19 | XMS | Encounter Summary ---
Demographics + + + | Address | [address] | | | [place] [address] | + + + | Home Phone [...] + | Katalina Padilla | ECON | [address] | | | | | [place], [place] | | | | | [address] | | + + + + + | Ellie Vang | ECON | Unknown | | + + + + + Care Team Providers + +------+ + | Care General Helper Name | Role | Phone | [...] | | 2014 | | Preventive at [facility] | [address] | ([place]); | | | | [address] | [place], [place] | Refill Request | | | | Mailcode: [facility] | [address] | | | | | [facility] | [phone] | | | | | and Erick, | | | | | | Building [address] | | | | | | [place], [place] | | | | | | [address] | | | | | | [phone] | | | +--------+--------+ + + + [...] Flannery | | | | | | [place], [place] | | | | | | [address] | | | | | | [phone] | | | | | | | | +--------+---------+ + + + documented as of this encounter Visit Diagnoses Not on filedocumented in this encounter"
--- OUTSIDE RECORDS SUMMARY | ~2019-12-19 | XMS | Encounter Summary ---
Demographics + + + | Address | [address] | | | [place] [address] | + + + | Home Phone [...] [place], [place] | | | | | [address] | | + + + + + | Ellie Vang | ECON | Unknown | | + + + + + Care Team Providers + +------+ + | Care Bundle Cutter Name | Role | Phone | [...] [address] | | | | | [facility] | [facility] | | | | | [address] | [place], [place] | | | | | Mail Code: OC8PM | [address] | | | | | [facility] | [phone] | | | | | and Healing, | | | | | | [address] | | | | | | [place], [place] | | | | | | [address] | | | | | | [phone] | | | +--------+ + + + [...] Flannery | | | | | | [place], [place] | | | | | | [address] | | | | | | [phone] | | | | | | | | +--------+---------+ + + + documented as of this encounter Visit Diagnoses Not on filedocumented in this encounter"
--- OUTSIDE RECORDS SUMMARY | ~2019-12-19 | XMS | Encounter Summary ---
Demographics + + + | Address | [address] | | | [place] [address] | + + + | Home Phone [...] | Author | [facility] | | | and Jeffana | + + + | Organization | [facility] | | | and [...] Providers + +------+ + | Care Assistant Superintendent Name | Role | Phone | + +------+ + PCP | Unavailable | + +------+ + Encounter Details +--------+ + + + + | Date | Type | Department | Care Team | Description | +--------+ + + + + | 10/20/ | Orders Only | [facility] | Conversion | | | 2017 | | NEPHROLOGY JESUS | Transaction, | | | | | [address] | Provider Unknown | | | | | [address] [address] | | | | | | [address] | (Fax) | | | | | [phone] | | | +--------+ + + + [...] RICHEY | | | | | | [place] [address] | | | | | | [phone] | | | | | | | [...]
--- OUTSIDE RECORDS SUMMARY | ~2019-12-19 | XMS | Encounter Summary ---
Demographics + + + | Address | [address] | | | [place] [address] | + + + | Home Phone [...] + | Katalina Padilla | ECON | [address] | | | | | [place], [place] | | | | | [address] | | + + + + + | Ellie Vang | ECON | Unknown | | + + + + + Care Team Providers + +------+ + | Care Attendant Honor Bar Name | Role | Phone | + +------+ + | Fadi Goodrich DO | PCP | | + +------+ + Encounter Details +--------+ + + + + | Date | Type | Department | Care Team | Description | +--------+ + + + + | 03/16/ | Telephone | Digestive Health | Ronna Clarke, | | | 2018 | | Center at [facility] [address] | ACNP [address] | | | | | [address] | Ave [place], [place] | | | | | Mailcode: [place] | [address] | | | | | for Health and | [phone] | | | | | [facility] 2 | | | | | | [place], [place] | | | | | | [address] | | | | | | | [...] Flannery | | | | | | [facility] [place] | | | | | | [address] | | | | | | [phone] | | | | | | | | +--------+---------+ + + + documented as of this encounter Visit Diagnoses Not on filedocumented in this encounter"
--- OUTSIDE RECORDS SUMMARY | ~2019-12-19 | XMS | Encounter Summary ---
Demographics + + + | Address | [address] | | | [place] [address] | + + + | Home Phone [...] [place], [place] | | | | | [address] | | + + + + + | Ellie Vang | ECON | Unknown | | + + + + + Care Team Providers + +------+ + | Care Community Representative Name | Role | Phone | [...] | obstruction | [address] | [address] [place], | | | | | or gangrene | Rd | [place] | | | | | | [place], [place] | [address] | | | | | Incarcerated | [address] | Phone: | | | | | ventral | Phone: | [phone] | | | | | hernia | [phone] | Fax: | | | | | Procedures | Fax: | [phone] | | | | | REQUEST TO | [phone] | | | | | | SURGERY | | | | | | | PALM AND BACK FORGER | | | | | | | MA REPAIR | | | | | | | INCISIONAL | | | | | | | HERNIA,STRAN | | | | | | | G MA REPAIR | | | | | | | INCIS | | | | | | | HERNIA W | | | | | | | MESH MA | | | | | | | MUSCLE-SKIN | | | | | | | FLAP,TRUNK | | | | | | | MA | | | | | | | MUSCLE-SKIN | | | | | | | FLAP,TRUNK | | | | | | | MA REPAIR | | | | | | | INCISIONAL | | | | | | | HERNIA,REDUC | | | | | | | IBLE MA | | | | | | | REPAIR INCIS | | | | | | | HERNIA W | | | | | | | MESH MA | | | | | | | REPAIR | | | | | | | RECURR INCIS | | | | | | | | | | | | | | HERNIA,STRAN | | | | | | | G MA REPAIR | | | | | | | INCIS | | | | | | | HERNIA W | | | | | | | MESH MA | | | | | | | REPAIR | | | | | | | RECURR INCIS | | | | | | | | | | | | | | HERNIA,REDUC | | | | | | | MA REPAIR | | | | | | [...] | | | | | obstruction | [place], | Mailcode: | | | | | or gangrene | [place] | [facility] for | | | | | Abdominal | [address] | Health and | | | | | pain, | Phone: | Healing, | | | | | unspecified | [phone] | Building 2 | | | | | abdominal | Fax: | [place], [place] | | | | | location | [phone] | [address] | | | | | Procedures | | Phone: | | | | | CONSULT TO | | [phone] | | | | | SURGERY - | | Fax: | | | | | GENERAL | | [phone] | +--------+--------+ + + + + Encounter Details +--------+---------+ + + + | Date | Type | Department | Care Team | Description | +--------+---------+ + + + | 05/05/ | Office | Digestive Health | Chilo, | Ventral hernia | | 2019 | Visit | Center at [facility] [address] | MD Jones [address] | without obstruction | | | | [address] | [address] | or gangrene (Primary | | | | Mailcode: Center | [place], [place] | Dx) | | | | for Health and | [address] | | | | | Healing, Building 2 | [phone] | | | | | [place], [place] | | | | | | [address] | | | | | | [phone] | | | +--------+---------+ + + + [...] Figs, dried 60 mL (1?4 cup) 1.9 Stephenson 1 medium 1.8 Sweet Potato, cooked, without [...] 1.3 Eggplant 125 mL (1?2 cup) 1.3 [place], with skin 1 medium 1.0-1.3 Peas, green, cooked 125 mL (1?2 cup) 0.8-1.3 Carrot, cooked [place] 125 mL (1?2 cup) 1?2 fruit 1.1-1.2 0.7-1.1 Grapefruit 1?2 fruit 0.7-1.1 Prunes, dried 3 1.1 [place], with skin 2 fruits 1.1 Apricots, dried [...] Bread, rye 35 g (1 slice) 0.6-1.0 Bertie bread crackers 3 crackers 0.9 Raisin bran [...] of Soluble Fiber [email or web address] PATIENT SURGERY INFORMATION [facility] General Surgery Office Toll-free: ext [phone] Surgery Date: Monday, July 08, [address]: [facility] Procedure: recurrent ventral hernia repair Surgeon Name: Dr. Jones Tiwari DIRECTIONS FOR SURGERY TO PREPARE FOR SURGERY - If you are able, walk every day for at least 30 minutes. - Follow up: Phone pre-operative medicine clinic call to be completed within 30 days of emerson jerrica. This call appointment will be scheduled with you by a museum service scheduler. You will receive a ca ll [...] ease call the General Surgery Office at [phone] for [id number]. Check-in on the day of surgery is at the Admitting Department located on the 9th floor of [facility]. DIET Nothing to eat or drink [...] the surgery. Please see the list below, [facility] has a list of products that [...] contact our office . Products Containing Aspirin Yuki-Sedalia, Anacin, Anexsia with Codeine, Andynos, Aspirin, Aspirin suppositories, Ascrip tin, Aspergum, Axotal, B-A-C, Baby Aspirin, Lucila, BC Powder, Bexophene, Buffaprin, Bufferin , Buffinol, Cama-Arthritis Strength, Congespirin, [place], Coricidin, Damason, Darvon, Dristan, Kalani-Gesic, Digel, Dolprin #3 Tablets, Donatab, Doxaphene, Duragesic, Easprin, Ecotrin, Emag rin Forte, Emiprin, Emprazil, Equagesic, Equazine M, Excedrin, Fiogesic, Fiorgen PH, Fiorice t, Fiorinal, 4-Way Cold Tablet, Gemnisyn, Indocin, Liquprin, Lortab ASA, Magnaprin, Marnal, Meprobamate, Midol, Momentum, Norgesic, [place], Orphengesic, Pabalate, P-A-C, Percodan, Pre salin, Robaxasil, Roxiprin, Saleto, Salocol, SK-65 Compound, Sine-Aid, Sine-Off, [place], Supac, Talwin Compound, Trigesic, Tolectin, Traiminicin, Vanquish, ZORprin, Zomax Products Containing Ibuprofen Advil, Aleve, Haltran, Medipren, Midol, Motrin, Naproxyn, Nuprin, Rufen Herbal Medications Ephedra: discontinue 24 hours before surgery Garlic: discontinue 7 days prior to surgery Ginkgo: discontinue 36 hours prior to surgery Ginseng: discontinue 7 days prior to surgery Kava: discontinue 24 hours prior to surgery Stedman s Wort: discontinue 5 days prior to surgery Valerian: discontinue several weeks prior to surgery Other Products Which May Promote Bleeding Vitamin E, Gingko Biloba, Marine Fatty Acids, Catano-3 Fish Oil Supplement PRE-OP BATHING/SHOWER INSTRUCTIONS with [facility] Bathe or shower the evening before and [...] loss of tissue. Check out the free [employer] Quit Line - The Quit Line is open 24 hours a day, seven days a we ek. The Quit Line is a telephone and web-based counseling service to help [place]ians quit us ing tobacco and nicotine products. 1.800.QUIT.NOW ( ) or www.quitnow.net/[place] PARKING Parking at the [facility] for patients and visitors is available in the [facility] tructure located across from the emergency department. Patient parking is available on level 1 and 3. Metered parking is available on the top level. Parking at [facility] is available in the building's parking structure. For additional parking options visit [email or web address]. TRANSPORTATION You will require transportation home on the day of discharge. Pain medications and physical activity restrictions may limit your ability to drive safely. CANCELLING YOUR PROCEDURE Please notify the general surgery office at [phone] as soon as possible should you nee [...] plans to see an ENT and a burglar alarm superintendent for her symptoms in the near future. [...] less 8 [facility] Past Medical History: Diagnosis Date Abdominal pain Abnormal ThinPrep Pap test of vagina Allergic rhinitis Anemia Anxiety Bipolar disorder ([facility]) Chronic wound infection of abdomen from 2010 Cough Depression Diverticulitis of colon Dizziness Glaucoma Heart burn Hemorrhoids Hernia of abdominal wall Incisional hernia, incarcerated 2012 Insomnia Irregular periods Kidney stone Leaking of urine Leg sore Lymphedema Morbid obesity with body mass index of 70 and over in adult ([facility]) Myalgia and myositis Nausea Neck pain Numbness Osteoarthritis of knee Palpitations Pneumonia Shortness of breath Staphylococcal infection Stroke ([facility]) TIA (transient ischemic attack) due to [...] file Gets together: Not on file Attends muslim service: Not on file Active member of club or organization: Not on file Attends meetings of clubs or organizations: Not on file Relationship status: Not on file Other Topics Concern Not on file Social History Narrative Updated 11/09/15 She lives in [place] with her mother and her sister (also her caregiver) lives in an apa rtment/duplex below. She has 2 grandchildren (age 4 and 7) who live with her daughter and son-in-law Her boyfriend lives in [place] HFpEF, DM2, HTN, Sleep Apnea (unable to [...] program here and refer her to our housing specialist who also has expertise in physical [...] daily. BELBUCA 600 mcg buccal film CALCIUM [id number]-GENIS ORAL Take 2 tablets by mouth two [...] by Gadiel Yi . JONES TIWARI MD [facility] [address] Mailcode: [place] [address] I spent 31 minutes with [...] Flannery | | | | | | [place], [place] | | | | | | [address] | | | | | | [phone] | | | | | | | | +--------+---------+ + + + documented as of this encounter Visit Diagnoses + + | Diagnosis | + + | Ventral hernia without obstruction or gangrene - Primary Ventral hernia, unspecified, | | without mention of obstruction or gangrene | + + documented in this encounter
--- OUTSIDE RECORDS SUMMARY | ~2019-12-19 | XMS | Encounter Summary ---
Demographics + + + | Address | [address] | | | [place] [address] | + + + | Home Phone [...] [place], [place] | | | | | [address] | | + + + + + | Ellie Vang | ECON | Unknown | | + + + + + Care Team Providers + +------+ + | Care High Wire Artist Name | Role | Phone | [...] | | 2015 | | Center at [facility] [address] | [address] | | | | | [facility] | [address] [place], | | | | | [facility] and | [place] [address] | | | | | [place] [address] | | | | | | [place], [place] | | | | | | [address] | | | | | | [phone] | | | +--------+ + + + [...] Flannery | | | | | | [place], [place] | | | | | | [address] | | | | | | [phone] | | | | | | | | +--------+---------+ + + + documented as of this encounter Visit Diagnoses Not on filedocumented in this encounter"
--- OUTSIDE RECORDS SUMMARY | ~2019-12-19 | XMS | Encounter Summary ---
Demographics + + + | Address | [address] | | | [place] [address] | + + + | Home Phone [...] [place], [place] | | | | | [address] | | + + + + + | Ellie Vang | ECON | Unknown | | + + + + + Care Team Providers + +------+ + | Care Boilermaker Helper Name | Role | Phone | [...] Anesthesia | [address] | Cory Enriquez | | | 2015 | Event | [address] | RMD [address] | | | | | [facility] | [address] | | | | | Hospital Admitting | [place], [place] | | | | | Desk Located on the | [address] | | | | | 9th floor | [phone] | | | | | [place], [place] | | | | | | [address] | Marcial Brunner CRNA | | | | | | [address] | | | | | | [address] [facility] | | | | | | [place] [address] | | | | | | [phone] | | | | | | | [...] Flannery | | | | | | [place], [place] | | | | | | [address] | | | | | | [phone] | | | | | | | [...] | | | | | Starting Jasmyne /01/08 at 0948, | | AM PDT | | | | | Until Jasmyne 8/01/08 at 1204 | | | | | [...]
--- OUTSIDE RECORDS SUMMARY | ~2019-12-19 | XMS | Encounter Summary ---
Demographics + + + | Address | [address] | | | [place] [address] | + + + | Home Phone | | + + + | Preferred Language | Unknown | + + + | Marital Status | | + + + | Methodist Affiliation | Unknown | + + + | Race | Unknown | + + + | Ethnic Group | Unknown | + + + Author + + + | Author | [facility] | | | and Jeffana | + + + | Organization | [facility] | | | and [...] Providers + +------+ + | Care Inspector Government Property Name | Role | Phone | + +------+ + PCP | Unavailable | + +------+ + Encounter Details +--------+ + + + + | Date | Type | Department | Care Team | Description | +--------+ + + + + | 02/14/ | Orders Only | [facility] | Augustine Fu MD | | | 2016 | | NEPHROLOGY [place] | [address] [facility] [address] | | | | | [address] | [address] [facility] [place] | | | | | [place] | [address] | | | | | [address] | | | | | | [phone] | | | +--------+ + + + [...] RICHEY | | | | | | [place] [address] | | | | | | [phone] | | | | | | | [...]
--- OUTSIDE RECORDS SUMMARY | ~2019-12-19 | XMS | Encounter Summary ---
Demographics + + + | Address | [address] | | | [place] [address] | + + + | Home Phone [...] + | Katalina Padilla | ECON | [address] | | | | | [place], [place] | | | | | [address] | | + + + + + | Ellie Vang | ECON | Unknown | | + + + + + Care Team Providers + +------+ + | Care Installation Tech Name | Role | Phone | [...] floor | | | | | | [place], [place] | | | | | | [address] | | | +--------+ + + + [...] Flannery | | | | | | [place], [place] | | | | | | [address] | | | | | | [phone] | | | | | | | | +--------+---------+ + + + documented as of this encounter Visit Diagnoses Not on filedocumented in this encounter"
--- OUTSIDE RECORDS SUMMARY | ~2019-12-19 | XMS | Encounter Summary ---
Demographics + + + | Address | [address] | | | [place] [address] | + + + | Home Phone [...] [place], [place] | | | | | [address] | | + + + + + | Ellie Vang | ECON | Unknown | | + + + + + Care Team Providers + +------+ + | Care Customer Success Associate Name | Role | Phone | + +------+ + | Fadi Goodrich DO | PCP | | + +------+ + Encounter Details +--------+ + + + + | Date | Type | Department | Care Team | Description | +--------+ + + + + | 02/24/ | Abstract | Cardiology | Randell Franks, | | | 2015 | | Preventive at [facility] | MD [address] | | | | | [address] | [facility] [place] | | | | | Mailcode: CH9A | [address] | | | | | [facility] | [phone] | | | | | and Healing, | | | | | | [address] | | | | | | [facility] [place] | | | | | | [address] | | | | | | [phone] | | | +--------+ + + + [...] | | 2019 | Visit | | [address] | | | | | | [place], [place] | | | | | | [address] | | | | | | [phone] | | | | | | | | +--------+---------+ + + + documented as of this encounter Visit Diagnoses Not on filedocumented in this encounter"
--- OUTSIDE RECORDS SUMMARY | ~2019-12-19 | XMS | Encounter Summary ---
Demographics + + + | Address | [address] | | | [place] [address] | + + + | Home Phone [...] + | Katalina Padilla | ECON | [address] | | | | | [place], [place] | | | | | [address] | | + + + + + | Ellie Vang | ECON | Unknown | | + + + + + Care Team Providers + +------+ + | Care Production Control Expediter Name | Role | Phone | + [...] Order | [address] | [address] [facility] [place] | | | | | [address] | [address] | | | | | [address], | [phone] | | | | | 4th floor [place], | | | | | | [place] [address] | | | | | | [phone] | | | +--------+ + + + [...] Flannery | | | | | | [facility] [place] | | | | | | [address] | | | | | | [phone] | | | | | | | | +--------+---------+ + + + documented as of this encounter Results EGD (06/23/2018 3:58 PM PST) + + | Specimen | + + | | + + + +--------- -----+ | Narrative | Performe d At | + +--------- -----+ | MRN: | [facility] | | [id number] Date: 06/23/2018Patient Name: Elzbieta Curtis #: | ENDOSCOP Y | | [id number] of : 1975CSN: [id number] Type: | | | AmbulatoryRoom: SORProcedure: Upper GI | | | endoscopyIndications: Nausea with vomiting, Status post | | | Wacg-lw-EQtfbksbvk: KALEB MILES MD (Doctor), JOSE | | | NASIMA, Arrow Point Attacher | | | (Arrow Point Attacher)Referring MD: DANIELLE GARCÍAPRequesting | | | Provider: [...] | | | The Olympus [id number] Gastroscope #[id number] was | | | introduced through the [...] endoscope without resistance. The | | | vmmfm-px-hfvphev limb was characterized by healthy appearing | [...] On: | | | 06/23/2018 3:58 [facility] Letter to: RADHA MICHAEL, DO | | [...]
--- OUTSIDE RECORDS SUMMARY | ~2019-12-19 | XMS | Encounter Summary ---
Demographics + + + | Address | [address] | | | [place] [address] | + + + | Home Phone [...] + | Katalina Padilla | ECON | [address] | | | | | [place], [place] | | | | | [address] | | + + + + + | Ellie Vang | ECON | Unknown | | + + + + + Care Team Providers + +------+ + | Care Cloth Boil Off Machine Operator Name | Role | Phone | + +------+ + | Fadi Goodrich DO | PCP | | + +------+ + Encounter Details +--------+ + + + + | Date | Type | Department | Care Team | Description | +--------+ + + + + | 12/05/ | Abstract | Cardiology | Randell Franks, | | | 2016 | | Preventive at [facility] | MD [address] | | | | | [address] | [facility] [place] | | | | | Mailcode: CH9A | [address] | | | | | [facility] | [phone] | | | | | and Healing, | | | | | | [address] | | | | | | [facility] [place] | | | | | | [address] | | | | | | [phone] | | | +--------+ + + + [...] | | 2019 | Visit | | [address] | | | | | | [place], [place] | | | | | | [address] | | | | | | [phone] | | | | | | | | +--------+---------+ + + + documented as of this encounter Visit Diagnoses Not on filedocumented in this encounter"
--- OUTSIDE RECORDS SUMMARY | ~2019-12-19 | XMS | Encounter Summary ---
Demographics + + + | Address | [address] | | | [place] [address] | + + + | Home Phone [...] Organization | [facility] | | | and [...] Providers + +------+ + | Care Paper Products Machine Operator Name | Role | Phone [...] [address] | | | | | [place], [place] | [place] [address] | | | | | [address] | [phone] | | | | | [phone] | | | +--------+ + + + [...] RICHEY | | | | | | [place] [address] | | | | | | [phone] | | | | | | | [...] 0.61 m/s | | | MV Dec Holmes: 2.43 m/s2 MV DecT: 247.51 ms MV E Jeffrey: 0.60 | | | m/s MV E/A Ratio: 0.98 MV PHT: 71.78 ms MVA By PHT: 3.06 | | | cm2 Septal e': 0.06 m/s Septal E/e': 9.54 Lateral e': 0.10 | | | m/s Lateral E/e': 5.84 RAP: 5 mmHg RV s': 0.11 m/s | | | Casting Assistant: JESSICA Authenticated by: Darryl [facility] Report Date/Time: | | | 02-22-2019 [...] cmLVIDd: 4.70 cmLVPWd: 0.79 cmLVOT Area: 3.58 hg7CMRA Diam: 2.13 cm%FS: 39.25 | | %EF(Teich): [...] | Index (A-L): 14.72 ml/m2LAAs A2C: 10.03 yd3GLTKG A-L A2C: 22.69 mlLALs A2C: 3.76 | | cmLAAs A4C: 13.41 dp7UNQNP A-L A4C: 36.80 mlLALs A4C: 4.14 cmRAAs: 11.18 | | nq1GOYFV A-L: 22.84 mlRAESV MOD: 22.10 mlRALs: 4.64 cmTAPSE: 2.04 cmAV maxPG: | | 6.55 mmHgAV meanP.52 mmHgAV Vmax: 1.27 m/Genesis Vmean: 0.88 m/Genesis VTI: 26.50 | | cmAVA Vmax: 2.49 cm2AVA (VTI): 2.39 xd6AFGH Vmax: 0.00 cm2/m2AVAI (VTI): 0.00 | | cm2/m2LVOT maxP.17 mmHgLVOT meanP.82 mmHgLVSI Dopp: 30.83 ml/m2LVSV Dopp: | | 63.52 mlLVOT Vmax: 0.89 m/sLVOT Vmean: 0.65 m/sLVOT VTI: 17.71 cmMV A Jeffrey: | | 0.61 m/sMV Dec Holmes: 2.43 m/s2MV DecT: 247.51 msMV E Jeffrey: 0.60 m/sMV E/A Ratio: | | 0.98MV PHT: 71.78 msMVA By PHT: 3.06 lm7Sjocnq e': 0.06 m/sSeptal E/e': | | 9.54Lateral e': 0.10 m/sLateral E/e': 5.84RAP: 5 mmHgRV s': 0.11 m/s | | Casting Assistant: DHAuthenticated by: Darryl [facility] Date/Time: 02-22-2019 20:8:36 | | IMPRESSION: 1. [...] A Jeffrey: 0.61 m/s | |MV Dec Holmes: 2.43 m/s2 | |MV DecT: 247.51 ms | |MV E Jeffrey: 0.60 m/s | |MV E/A Ratio: 0.98 | |MV PHT: 71.78 ms | |MVA By PHT: 3.06 cm2 | |Septal e': 0.06 m/s | |Septal E/e': 9.54 | |Lateral e': 0.10 m/s | |Lateral E/e': 5.84 | |RAP: 5 mmHg | |RV s': 0.11 m/s | | | |Casting Assistant: | |Authenticated by: Darryl Merrill | |Report [...]
--- OUTSIDE RECORDS SUMMARY | ~2019-12-19 | XMS | Encounter Summary ---
Demographics + + + | Address | [address] | | | [place] [address] | + + + | Home Phone [...] [place], [place] | | | | | [address] | | + + + + + | Ellie Vang | ECON | Unknown | | + + + + + Care Team Providers + +------+ + | Care Bill Distributor Name | Role | Phone | + [...] | | | | | (HCC) | [place], [place] | Hospital, | | | | | Procedures | [address] | 10th Floor | | | | | CT ABDOMEN & | Phone: | [place], [place] | | | | | PELVIS WWO | | [address] | | | | | IV CONTRAST | Fax: | Phone: | | | | | [place] | [phone] | [phone] | | | | | ABDOMEN&PELV | | Fax: | | | | | [place] | | [phone] | | | | | W/CONTRAST | [...] | 2015 | Encounter | Lab at [facility] [address] | | | | | | [address] Mailcode: | | | | | | CH[facility] | | | | | | Health and Healing, | | | | | | [place] [address], [facility] | | | | | | Floor [place], [place] | | | | | | [address] | | | | | | [phone] | | | +--------+ + + + [...] Flannery | | | | | | [place], [place] | | | | | | [address] | | | | | | [phone] | | | | | | | [...] + + | JUSTINE PEÑA | [address] | [place] [address] | | | OF CARE TESTS | | | | + + + + + documented in this encounter Visit Diagnoses + + | Diagnosis | + + | Abdominal pain | + + | Morbid obesity (HCC) Morbid obesity | + + documented in this encounter"
--- OUTSIDE RECORDS SUMMARY | ~2019-12-19 | XMS | Encounter Summary ---
Demographics + + + | Address | [address] | | | [place] [address] | + + + | Home Phone [...] [place], [place] | | | | | [address] | | + + + + + | Ellie Vang | ECON | Unknown | | + + + + + Care Team Providers + +------+ + | Care Risk Reduction Counselor Name | Role | Phone | + +------+ + | Kenyatta Cardenas MD | PCP | | + +------+ + Encounter Details +--------+ + + + + | Date | Type | Department | Care Team | Description | +--------+ + + + + | 03/02/ | Horticultural Therapist | Digestive Health | Keren Allen, | | | 2019 | | Center at [facility] [address] | AGACNP [address] | | | | | [address] | [facility] [place] | | | | | Mailcode: [place] | [address] | | | | | for Health and | | | | | | [facility] 2 | | | | | | [place], [place] | | | | | | [address] | | | | | | | [...] Flannery | | | | | | [place], [place] | | | | | | [address] | | | | | | [phone] | | | | | | | | +--------+---------+ + + + documented as of this encounter Visit Diagnoses Not on filedocumented in this encounter"
--- OUTSIDE RECORDS SUMMARY | ~2019-12-19 | XMS | Encounter Summary ---
Demographics + + + | Address | [address] | | | [place] [address] | + + + | Home Phone [...] + | Katalina Padilla | ECON | [address] | | | | | [place], [place] | | | | | [address] | | + + + + + | Ellie Vang | ECON | Unknown | | + + + + + Care Team Providers + +------+ + | Care Caser Shoe Parts Name | Role | Phone | + [...] | [address] | MD Jodie,PhD [address] | | | | | [facility] | [address] | | | | | Hospital Admitting | [place], [place] | | | | | Desk Located on the | [address] | | | | | 9th floor | [phone] | | | | | [place], [place] | | | | | | [address] | Jason Balbuena | | | | | | MD Twin [address] | | | | | | [address] | | | | | | [place], [place] | | | | | | [address] | | | | | | [phone] | | | | | | | [...] | | panus; Other (Comment) (open | Ashlye Herndon RN | Orquidea Parks RN | [...] Flannery | | | | | | [place], [place] | | | | | | [address] | | | | | | [phone] | | | | | | | [...] INTRAPROCEDURE PRN, Starting Thu | | 18 9:15 | | | [...] | | | CONTINUOUS, Starting Thu03/01/18 | anesthes | AM PDT | | [...] 8:24 | | | | | Starting Thu03/01/18 at 0824, | | AM PDT | [...] INTRAPROCEDURE PRN, Starting Thu | | 18 10:51 | | | [...]
--- OUTSIDE RECORDS SUMMARY | ~2019-12-19 | XMS | Encounter Summary ---
Demographics + + + | Address | [address] | | | [place] [address] | + + + | Home Phone [...] + | Katalina Padilla | ECON | [address] | | | | | [place], [place] | | | | | [address] | | + + + + + | Ellie Vang | ECON | Unknown | | + + + + + Care Team Providers + +------+ + | Care Lamp Shade Assembler Name | Role | Phone | + +------+ + | Fadi Goodrich DO | PCP | | + +------+ + Encounter Details +--------+------+ + + + | Date | Type | Department | Care Team | Description | +--------+------+ + + + | 10/12/ | Lab | Laboratory at [facility] | | | | 2019 | | [address] | | | | | | [place], [place] | | | | | | [address] | | | | | | [phone] | | | +--------+------+ + + + [...] Flannery | | | | | | [place], [place] | | | | | | [address] | | | | | | [phone] | | | | | | | [...] [facility] | [address] [facility] [facility] [address] [facility] [address] | [place] [address] | | | CLAIRE, LYDIA | CLARENCE [...] INTFC | | | | determined by [employer] | | | | | | Zinkia. See | | | | | | Compliance Statement B: | | | | | | Casper/CSPerformed | | | | | | by [employer],[address] | | | | | | [place] [facility] [place] | | | | | | [address] | | | | | | [phone].Plandree. | | | | | | AppMeshIsmael MD, | | | | | | [...] [facility] | [address] | [place], [place] | | | UNIV PTH - INTFC | | [address] | | + + + + + ZINC, SERUM (10/12/2018 3:29 PM PDT) + + + + + + | Component | Value | Ref Range | Performed | Pathologist | | | | | At | Signature | + + + + + + | ZINC SERUM | 58 (L)Comment: | 60 - 120 ug/dL | [facility] | | | | INTERPRETIVE | | [...] | | | | | determined by [employer] | | | | | | Laboratories. See | | | | | | Compliance Statement B: | | | | | | Casper/CSPerformed | | | | | | by [employer],[address] | | | | | | Natalia Martinez, [facility] | | | | | | [address] | | | | | | [phone].Plandree. | | | | | | Ismael [...] | + + + + + | [facility] | [address] | [place], [place] | | | UNIV PTH - INTFC | | [address] | | + + + + + [...] [facility] | | | (YEN NOAH) | [facility],500 | | REG UNIV | | | SERUM | Natalia Martinez [facility] [place] | | PTH - INTFC | | | | [address] | | | | | | [phone].aruplab. | | | | | | Ismael [...] [facility] | | | | | | Zinkia. See | | | | | | Compliance Statement B: | | | | | | Casper/CS | | | | + + + + + + + + | Specimen | + + | Blood - Blood | | (substance) | + + + + + + + | Performing | Address | City/State/Zipcode | Phone Number | | Organization | | | | + + + + + | [facility] | [address] | [place], [place] | | | UNIV PTH - INTFC | | [address] | | + + + + + [...] LABORATORY | | >18years: Deficiency: <20 | CLAIRE, CORE | | ng/mL Insufficiency: 20-29 ng/mL | | | Optimum Level: 30-80 ng/mL High: | | | 81-150 ng/ml Toxic: >150 ng/mL | | + + + + + + + + | Performing | Address | City/State/Zipcode | Phone Number | | Organization | | | | + + + + + | [facility] | [address] | [place] [address] | | | LYDIA RANGEL | CLARENCE [...] | [facility] | [address] | [place] [address] | | | CLAIRE, LYDIA | CLARENCE [...] | | | | | determined by [employer] | | | | | | Laboratories. See | | | | | | Compliance Statement B: | | | | | | Plandree.AppMesh/CSPerformed | | | | | | by [employer],[address] | | | | | | [place] [facility] [place] | | | | | | [address] | | | | | | [phone].Plandree. | | | | | | com, [...] [facility] | [address] | [place], [place] | | | UNIV PTH - INTFC | | [address] | | + + + + + [...] BEHAVIORAL MEDICINE | [address] | [place] [address] | | | SERVICES, CORE | PARK [...] | | | | | determined by [employer] | | | | | | Laboratories. See | | | | | | Compliance Statement B: | | | | | | Plandree.AppMesh/CSPerformed | | | | | | by [employer],[address] | | | | | | [place] [facility] [place] | | | | | | [address] | | | | | | [phone].Plandree. | | | | | | com, Ismael Willis MD, | | | | | | Lab. Director | | | | + + + + + + + + | Specimen | + + | Blood - Blood | | (substance) | + + + + + + + | Performing | Address | City/[facility] | Phone Number | | Organization | | | | + + + + + | [facility] | [address] | [place], [place] | | | UNIV PTH - INTFC | | [address] | | + + + + + [...] [facility] | [address] | [place] [address] | | | SERVICES, CORE | PARK [...] [facility] | [address] | [place] [address] | | | SERVICES, SPECIAL | PARK [...] BEHAVIORAL MEDICINE | [address] | [place] [address] | | | LYDIA RANGEL | CLARENCE [...] at | | | | | | [email or web address] | | | | | | med by [facility] | | | | | | [facility],[address] | | | | | | [place] [address] | | | | | | [phone].Plandree. | | | | | | [facility] state hospitalIsmael MD, | | | | | | Lab. Director | | | | + + + + + + + + | Specimen | + + | Blood - Blood | | (substance) | + + + + + + + | Performing | Address | City/State/[facility] | Phone Number | | Organization | | | | + + + + + | [facility] | [address] | [place], [place] | | | UNIV PTH - INTFC | | [address] | | + + + + + [...] | | | LABORATORY | | | MALIAN | | | SERVICES, | | | [...] BEHAVIORAL MEDICINE | [address] | [place] [address] | | | SERVICES, LYDIA | CLARENCE BONNER | | | + + + + + documented in this encounter Visit Diagnoses Not on filedocumented in this encounter"
--- OUTSIDE RECORDS SUMMARY | ~2019-12-19 | XMS | Encounter Summary ---
Demographics + + + | Address | [address] | | | [place] [address] | + + + | Home Phone [...] [place], [place] | | | | | [address] | | + + + + + | Ellie Vang | ECON | Unknown | | + + + + + Care Team Providers + +------+ + | Care Colorist Dyer Name | Role | Phone | + [...] | | | Procedures | | Rd [place], | | | | | [place] MNT | | [place] | | | | | INITIAL | | [address] | | | | | ASSESSMNT | | | | | | | X15MIN [place] | | | | | | | [...] | 2012 | Visit | Center at [facility] [address] | [address] [facility] | mellitus (HCC) | | | | [facility] | [address] | (Primary Dx); Morbid | | | | for Health and | [place], [place] | obesity (HCC) | | | | [place] [address] | [address] | | | | | [place], [place] | | | | | | [address] | | | | | | [phone] | | | +--------+---------+ + + + [...] PDTNutrition appointment, -try keeping food logs online: -www.Music Messenger (MM) -AgileSource -Be At One -Aim for 5162-1482 calories a day -Increase physical activity -try [...] portions. Denies any binge eating. Weight supervisor records change the past year: > 100 lb wt [...] see an RD for 2 years in [place] but insurance quit paying for it. Up [...] 1000/d--a more appropriate long-term range would be 5330-0810/day. Inadequat e calcium intake; did not address [...] w/ meals & snacks 2. Aim for 2555-0472 kcal/d 3. Keep food logs (at least [...] needed. Olga Lidia [address] RD, [place] Pager [phone] documented in this en counter Plan of Treatment +--------+---------+ + + + | Date | Type | Specialty | Care Team | Description | +--------+---------+ + + + | 03/15/ | Office | Cardiology | Randell Franks, | | | 2019 | Visit | | [address] | | | | | | [place], [place] | | | | | | [address] | | | | | | [phone] | | | | | | | | +--------+---------+ + + + documented as of this encounter Procedures + +--------+ + + + | Procedure Name | Priori | Date/Time | Associated Diagnosis | Comments | | | ty | | | | + +--------+ + + + | [place] MNT INITIAL | Routin | 04/14/2013 | [...]
--- OUTSIDE RECORDS SUMMARY | ~2019-12-19 | XMS | Encounter Summary ---
Demographics + + + | Address | [address] | | | [place] [address] | + + + | Home Phone [...] [place], [place] | | | | | [address] | | + + + + + | Ellie Vang | ECON | Unknown | | + + + + + Care Team Providers + +------+ + | Care Caregivers Non Medical Name | Role | Phone | + [...] [address]ann[address] | | | | | | [place], [place] | | | | | | [address] | | | | | | [phone] | | | | | | | | +--------+---------+ + + + documented as of this encounter Visit Diagnoses Not on filedocumented in this encounter"
--- OUTSIDE RECORDS SUMMARY | ~2019-12-19 | XMS | Encounter Summary ---
Demographics + + + | Address | [address] | | | [place] [address] | + + + | Home Phone [...] + | Katalina Padilla | ECON | [address] | | | | | [place], [place] | | | | | [address] | | + + + + + | Ellie Vang | ECON | Unknown | | + + + + + Care Team Providers + +------+ + | Care Carton Catcher Name | Role | Phone | + +------+ + | Fadi Goodrich DO | PCP | | + +------+ + Encounter Details +--------+------+ + + + | Date | Type | Department | Care Team | Description | +--------+------+ + + + | 06/16/ | Lab | Laboratory at [facility] | | Morbid obesity with | | 2012 | | [address] | | BMI of 70 and over, | | | | [place], [place] | | adult (HCC); Vitamin | | | | [address] | | D deficiency | | | | [phone] | | disease; | | | | [...] Flannery | | | | | | [place], [place] | | | | | | [address] | | | | | | [phone] | | | | | | | [...] | | | | | | obesity ([facility]) PCOS | | | | | | [...] at | | | | | | Code Climate.[facility] Test | | | | | | developed and | | | | | | characteristics | | | | | | determined by | | | | | | [employer]. See | | | | | | Compliance Statement B: | | | | | | Xockets.[facility]/CSPerformed | | | | | | by [employer] [facility],[address] | | | | | | Arnaldonovant health Juan, [facility] | | | | | | [address] | | | | | | [phone]. | | | | | | com, [...] B: | | | | | | Xockets.[facility]/CS | | | | + + + + + + + + | Specimen | + + | Blood - Blood | + + + + + + + | Performing | Address | City/State/Zipcode | Phone Number | | Organization | | | | + + + + + | [facility] | [address] | [place], [place] | | | UNIV PTH - INTFC | | [address] | | + + + + + [...]
--- OUTSIDE RECORDS SUMMARY | ~2019-12-19 | XMS | Encounter Summary ---
Demographics + + + | Address | [address] | | | [place] [address] | + + + | Home Phone [...] [place], [place] | | | | | [address] | | + + + + + | Ellie Vang | ECON | Unknown | | + + + + + Care Team Providers + +------+ + | Care Lead Caregiver Name | Role | Phone | [...] | | 2019 | | Preventive at [facility] | MD [address] | (PHENTERMINE 37.5 mg | | | | [address] | [place], [place] | ) | | | | Mailcode: [facility] | [address] | | | | | [facility] | [phone] | | | | | and Erick, | | | | | | [address] | | | | | | [place], [place] | | | | | | [address] | | | | | | [phone] | | | +--------+--------+ + + + [...] [place] | | | | | | [address] | | | | | | [phone] | | | | | | | | +--------+---------+ + + + documented as of this encounter Visit Diagnoses Not on filedocumented in this encounter"
--- OUTSIDE RECORDS SUMMARY | ~2019-12-19 | XMS | Encounter Summary ---
Demographics + + + | Address | [address] | | | [place] [address] | + + + | Home Phone [...] + | Katalina Padilla | ECON | [address] | | | | | [place], [place] | | | | | [address] | | + + + + + | Ellie Vang | ECON | Unknown | | + + + + + Care Team Providers + +------+ + | Care Fancy Needleworker Name | Role | Phone | + [...] | | | | | obesity | [place], [place] | | | | | | (HCC) | [address] | | | | | | Procedures | Phone: | | | | | | PHYSICAL | | | | | | | THERAPY | Fax: | | | | | | REFERRAL | [phone] | | +--------+--------+ + + + + Encounter Details +--------+ + + + + | Date | Type | Department | Care Team | Description | +--------+ + + + + | 06/22/ | Automobile Assembler | Digestive Health | Ion Pandey, | Pre-op evaluation | | 2016 | | Center at [facility] [address] | [address] | (Primary Dx); Morbid | | | | [address] | [place], [place] | obesity (HCC) | | | | Mailcode: Center | [address] | | | | | for Health and | | | | | | Healing, [address] | | | | | | [place], [place] | | | | | | [address] | | | | | | [phone] | | | +--------+ + + + [...] [address]ann[address] | | | | | | [place], [place] | | | | | | [address] | | | | | | [phone] | | | | | | | | +--------+---------+ + + + documented as of this encounter Visit Diagnoses + + | Diagnosis | + + | Pre-op evaluation - Primary Preoperative examination, unspecified | + + | Morbid obesity (HCC) Morbid obesity | + + documented in this encounter"
--- OUTSIDE RECORDS SUMMARY | ~2019-12-19 | XMS | Encounter Summary ---
Demographics + + + | Address | [address] | | | [place] [address] | + + + | Home Phone [...] + | Katalina Padilla | ECON | [address] | | | | | [place], [place] | | | | | [address] | | + + + + + | Ellie Vang | ECON | Unknown | | + + + + + Care Team Providers + +------+ + | Care Foreign Languages Professor Name | Role | Phone | [...] [address] | | | | | [place] at | [place], [place] | | | | | [place] [address] | [address] | | | | | [facility] | [phone] | | | | | [facility] | | | | | | [place], [place] | | | | | | [address] | | | | | | [phone] | | | +--------+--------+ + + + [...] Flannery | | | | | | [place] | | | | | | [address] | | | | | | [phone] | | | | | | | | +--------+---------+ + + + documented as of this encounter Visit Diagnoses Not on filedocumented in this encounter"
--- OUTSIDE RECORDS SUMMARY | ~2019-12-19 | XMS | Encounter Summary ---
Demographics + + + | Address | [address] | | | [place] [address] | + + + | Home Phone [...] [place], [place] | | | | | [address] | | + + + + + | Ellie Vang | ECON | Unknown | | + + + + + Care Team Providers + +------+ + | Care Scrap Crane Operator Name | Role | Phone [...] + + | 02/07/ | Hospital | [address] | [place], | | | 2014 - | Encounter | [address] | [address] | | | | | [place], [place] | [address] | | | 02/08/ | | [address] | [place], [place] | | | 2013 | | [phone] | [address] | | | | | | [phone] | | | | | | | [...] the resident s note. PRADIP STARR MD [facility] [address] [facility] [place] [address] orrMaryam hill MD - 1:05 PM PDT [facility] DEPARTMENT OF SURGERY EMERGENCY GENERAL SURGERY [...] Type 2 DM who presented to the [facility] ED ([place], [place]) on 02/06/14, with a week hi story of RUQ abdominal pain that radiates to her back. There, she was found to have leukocyt osis and multiple tiny, mobile stones, + sonographic Peterson's sign on abdominal ultrasound, concerning for acute cholecystitis. She was givenIV antibiotics (cipro, flagyl) and pain med s, then transferred to [facility] by [facility] for further care. Ms. Romero endorsed [...] up with Trauma Emergency General Surgery at [facility] In 4 weeks. (follow up in 2-4 weeks ) Contact information [address] [facility] Mailcode: L223a [facility] [address] [place] [address] Thank you for the [...] the resident s note. PRADIP STARR MD [facility] [address] [place] [address] orrMaryam hill MD - 5:17 AM PDT [facility] [place] DEPARTMENT OF SURGERY EMERGENCY GENERAL SURGERY Division [...] tolerated MARYAM RHODES MD PGY-1, General Surgery [address] [facility] A [address] [place] [facility] [place] [address] documented in this encoun ter Plan of Treatment +--------+---------+ + + + | Date | Type | Specialty | Care Team | Description | +--------+---------+ + + + | 03/15/ | Office | Cardiology | Randell Franks, | | | 2019 | Visit | | [address] | | | | | | [place], [place] | | | | | | [address] | | | | | | [phone] | | | | | | | [...] AMES | [address] | [place], [place] | | | JUSTINE DAWN OF JAKY | [facility] | [address] | | | TESTS | | | [...] MARQUAM | [address] | [place], [place] | | | JUSTINE DAWN OF CARE | [address] | [address] | | | TESTS | | | [...] | 60 - 99 mg/dL | [facility] - | | | GLUCOSE, [...] YAKOVAM | [address] | [place], [place] | | | JUSTINE DAWN OF JAKY | [address] | [address] | | | TESTS | | | [...] AMES | [address] | [place], [place] | | | JUSTINE DAWN OF JAKY | [facility] | [address] | | | TESTS | | | [...] [facility] | [address] | [place] [address] | | | SERVICES, | [address] [...] | + + + + + | [facility] | [address] | [place] [address] | | | SERVICES, | [address] [...] MARQUAM | [address] | [place], [place] | | | JUSTINE DAWN OF JAKY | [address] | [address] | | | TESTS | | | [...] LABORATORY | [address] | [place] [address] | | | SERVICES, CORE | CLARENCE [...] + + | [facility] | [address] [facility] | [place] [address] | | | SERVICES, CORE | PARK [...] [facility] | [address] | [place] [address] | | | SERVICES, CORE | PARK [...] | + + + + + | [facility] | [address] [facility] | [place] [address] | | | SERVICES, CORE | CLARENCE [...] | + + + + + | [facility] | [address] | [place] [address] | | | SERVICES, CORE | CLARENCE [...] AMES | [address] | [place], [place] | | | JUSTINE DAWN OF JAKY | [address] | [address] | | | TESTS | | | [...] pattern. | | | | | | Morning Babysitter | | | | | | sections [...] [facility] | [address] | [place] [address] | | | PATHOLOGY | [address] [...]
--- OUTSIDE RECORDS SUMMARY | ~2019-12-19 | XMS | Encounter Summary ---
Demographics + + + | Address | [address] | | | [place] [address] | + + + | Home Phone | | + + + | Preferred Language | Unknown | + + + | Marital Status | | + + + | Sabianist Affiliation | Unknown | + + + | Race | Unknown | + + + | Ethnic Group | Unknown | + + + Author + + + | Author | [facility] | | | and Jeffana | + + + | Organization | [facility] | | | and Jeffana [...] Providers + +------+ + | Care Market Developer Name | Role | Phone | + +------+ + | Jorje Hill | PCP | | + +------+ + Encounter Details +--------+ + + + + | Date | Type | Department | Care Team | Description | +--------+ + + + + | 06/20/ | Hospital | [facility] | Dharmesh Melchor | Canceled (OTHER) | | 2019 | Encounter | CENTER IR INTRA OP | MD [address] | | | | | [address] | [address] | | | | | [place], [place] | [place] [address] | | | | | [address] | [phone] | | | | | [phone] | | | | | | | Christian Dawson MD | | | | | | [address] | | | | | | [place], [place] | | | | | | [address] | | | | | | | [...] RICHEY | | | | | | [place] [address] | | | | | | [phone] | | | | | | | [...]
--- OUTSIDE RECORDS SUMMARY | ~2019-12-19 | XMS | Encounter Summary ---
Demographics + + + | Address | [address] | | | [place] [address] | + + + | Home Phone [...] [place], [place] | | | | | [address] | | + + + + + | Ellie Vang | ECON | Unknown | | + + + + + Care Team Providers + +------+ + | Care Metal Sash Setter Name | Role | Phone | [...] | [address] | MD Jodie,PhD [address] | | | | | [facility] | [address] | | | | | Hospital Admitting | [place], [place] | | | | | Desk Located on the | [address] | | | | | 9th floor | [phone] | | | | | [place], [place] | | | | | | [address] | Jason Balbuena | | | | | | MD Twin [address] | | | | | | [address] | | | | | | [place], [place] | | | | | | [address] | | | | | | [phone] | | | | | | | [...] Flannery | | | | | | [place], [place] | | | | | | [address] | | | | | | [phone] | | | | | | | [...]
--- OUTSIDE RECORDS SUMMARY | ~2019-12-19 | XMS | Encounter Summary ---
Demographics + + + | Address | [address] | | | [place] [address] | + + + | Home Phone [...] Team Providers + +------+ + | Care Food Counter Attendant Name | Role | Phone | [...] Flannery | | | | | | [place], [place] | | | | | | [address] | | | | | | [phone] | | | | | | | | +--------+---------+ + + + documented as of this encounter Visit Diagnoses Not on filedocumented in this encounter"
--- OUTSIDE RECORDS SUMMARY | ~2019-12-19 | XMS | Encounter Summary ---
Demographics + + + | Address | [address] | | | [place] [address] | + + + | Home Phone [...] [place], [place] | | | | | [address] | | + + + + + | Ellie Vang | ECON | Unknown | | + + + + + Care Team Providers + +------+ + | Care Multimedia Engineer Name | Role | Phone | + +------+ + | Kenyatta Cardenas MD | PCP | | + +------+ + Encounter Details +--------+ + + + + | Date | Type | Department | Care Team | Description | +--------+ + + + + | 06/06/ | Telephone | Digestive Health | Chilo | | | 2019 | | [place] at [facility] [address] | MD Jorje [address] | | | | | [address] | [address] | | | | | Mailcode: Center | [place], [place] | | | | | [facility] and | [address] | | | | | [facility] 2 | [phone] | | | | | [place], [place] | | | | | | [address] | | | | | | [phone] | | | +--------+ + + + [...] Flannery | | | | | | [place], [place] | | | | | | [address] | | | | | | [phone] | | | | | | | | +--------+---------+ + + + documented as of this encounter Visit Diagnoses Not on filedocumented in this encounter"
--- OUTSIDE RECORDS SUMMARY | ~2019-12-19 | XMS | Encounter Summary ---
Demographics + + + | Address | [address] | | | [place] [address] | + + + | Home Phone [...] [place], [place] | | | | | [address] | | + + + + + | Ellie Vang | ECON | Unknown | | + + + + + Care Team Providers + +------+ + | Care Performance Improvement Director Name | Role | Phone | + +------+ + | Fadi Goodrich DO | PCP | | + +------+ + Encounter Details +--------+ + + + + | Date | Type | Department | Care Team | Description | +--------+ + + + + | 03/04/ | Telephone | Digestive Health | Ion Pandey, | | | 2018 | | [place] at [address] | MD [address] | | | | | [address] | [place], [place] | | | | | Mailcode: [place] | [address] | | | | | for Health and | | | | | | [facility] 2 | | | | | | [place], [place] | | | | | | [address] | | | | | | | [...] Flannery | | | | | | [place], [place] | | | | | | [address] | | | | | | [phone] | | | | | | | | +--------+---------+ + + + documented as of this encounter Visit Diagnoses Not on filedocumented in this encounter"
--- OUTSIDE RECORDS SUMMARY | ~2019-12-19 | XMS | Encounter Summary ---
Demographics + + + | Address | [address] | | | [place] [address] | + + + | Home Phone [...] | Author | [facility] | | | and Jeffana | + + + | Organization | [facility] | | | and [...] Team Providers + +------+ + | Care Retirement Specialist Name | Role | Phone | + +------+ + PCP | Unavailable | + +------+ + Encounter Details +--------+ + + + + | Date | Type | Department | Care Team | Description | +--------+ + + + + | 12/23/ | Orders Only | [facility] | Conversion | | | 2017 | | NEPHROLOGY JESUS | Transaction, | | | | | [address] | Provider Unknown | | | | | [address] [place] [address] | | | | | | [address] | (Fax) | | | | | [phone] | | | +--------+ + + + [...] RICHEY | | | | | | [place] [address] | | | | | | [phone] | | | | | | | [...]
--- OUTSIDE RECORDS SUMMARY | ~2019-12-19 | XMS | Encounter Summary ---
Demographics + + + | Address | [address] | | | [place] [address] | + + + | Home Phone [...] Organization | [facility] | | | and Jeffana | [...] Team Providers + +------+ + | Care Corn Shredder Name | Role | Phone | + [...] + + | 06/10/ | Telephone | [facility] | [facility], | Referral | | 2019 | | INTERVENTIONAL | Mary Ortiz | | | | | RADIOLOGY [address] | Assistant Front End Manager | | | | | [address] | | | | | | [place], [place] | | | | | | [address] | | | | | | [phone] | | | +--------+ + + + [...] RICHEY | | | | | | [place] [address] | | | | | | [phone] | | | | | | | | +--------+---------+ + + + documented as of this encounter Visit Diagnoses Not on filedocumented in this encounter"
--- OUTSIDE RECORDS SUMMARY | ~2019-12-19 | XMS | Encounter Summary ---
Demographics + + + | Address | [address] | | | [place] [address] | + + + | Home Phone [...] + | Katalina aPdilla | ECON | [address] | | | | | [place], [place] | | | | | [address] | | + + + + + | Ellie Vang | ECON | Unknown | | + + + + + Care Team Providers + +------+ + | Care Fulling Machine Operator Name | Role | Phone | + +------+ + | Fadi Goodrich DO | PCP | | + +------+ + Encounter Details +--------+ + + + + | Date | Type | Department | Care Team | Description | +--------+ + + + + | 11/04/ | Telephone | [facility] | Leslie Mistry, | | | 2017 | | [address] | PhD [address] [facility] | | | | | Mailcode: CH15P | [address] | | | | | [facility] | [place], [place] | | | | | and [place], | [address] | | | | | | [phone] | | | | | Floor [place], [place] | | | | | | [address] | | | | | | [phone] | | | +--------+ + + + [...] Flannery | | | | | | [place], [place] | | | | | | [address] | | | | | | [phone] | | | | | | | | +--------+---------+ + + + documented as of this encounter Visit Diagnoses Not on filedocumented in this encounter"
--- OUTSIDE RECORDS SUMMARY | ~2019-12-19 | XMS | Encounter Summary ---
Demographics + + + | Address | [address] | | | [place] [address] | + + + | Home Phone [...] [place], [place] | | | | | [address] | | + + + + + | Ellie Vang | ECON | Unknown | | + + + + + Care Team Providers + +------+ + | Care Customer Solutions Teammate Name | Role | Phone | + [...] | | gastric | [address] | [place] | | | | | bypass | [place], [place] | Pavilion, 4th | | | | | Ventral | [address] | floor | | | | | hernia | Phone: | [place], [place] | | | | | without | [phone] | [address] | | | | | obstruction | Fax: | Phone: | | | | | or gangrene | [phone] | [phone] | | | | | Mixed | | Fax: | | | | | hyperlipidem | | [phone] | | | | | ia Diabetes [...] 05/27/ | Office | Digestive Health | Ronna Clarke, | History of Nilesh-en-Y | | 2018 | Visit | Center at [facility] [address] | ACNP [address] | gastric bypass | | | | [address] | Ave [place], [place] | (Primary Dx); | | | | Mailcode: Center | [address] | Ventral hernia | | | | for Health and | [phone] | without obstruction | | | | Healing, Building 2 | | or gangrene; Mixed | | | | [place], [place] | | hyperlipidemia; | | | | [address] | | 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[phone] | | type 2 without | | [...] to POC and will call or send nChannel message if any issues. documented in this [...] tongue once daily., Disp: , Rfl: CALCIUM CRB&ZPU-K4-HRZ32-GENIS ORAL, Take 2 tablets by mouth two [...] limb 150 cm or less 8 [facility] Social History Social History Marital status: Single Spouse name: N/A Number of children: 1 Years of education: N/A Occupational History disabled None Social History Main Topics Smoking status: Former Smoker Smokeless tobacco: Never Used Alcohol use No Drug use: No Sexual activity: Not on file Social History Narrative Updated 11/09/15 She lives in [place] with her mother and her sister (also her caregiver) lives in an apa rtment/duplex below. She has 2 grandchildren (age 4 and 7) who live with her daughter and son-in-law Her boyfriend lives in [place] HFpEF, DM2, HTN, Sleep Apnea (unable to [...] program here and refer her to our physician coding specialist who also has expertise in physical [...] and will call or send Mychart lars currieage if any issues. Start time 15:20, end time 15:45. I spent a total of 25 minutes face to face with this pat ient. Over 50% of visit was in counseling. ~ 15 minutes of additional time spent reviewing chart prior to visit and documenting after this visit. Ronna Clarke DNP ACNP LOADER UNLOADER Bariatric Surgery Nurse Practitioner [facility] | [address] | [place], [place] | [address] | documented in this e ncounter Plan of Treatment +--------+---------+ + + + | Date | Type | Specialty | Care Team | Description | +--------+---------+ + + + | 03/15/ | Office | Cardiology | Randell Franks, | | | 2019 | Visit | | MD [address] | | | | | | [place], [place] | | | | | | [address] | | | | | | [phone] | | | | | | | | +--------+---------+ + + + documented as of this encounter Results X-RAY MOHAMUDLuba Chang RAVINDER (06/07/2018 9:47 AM PST) + + | Specimen | + + | | + + + + + | Narrative | Performed At | + + + | EXAM: Esophagram with mail room radiograph HISTORY: RYGB 03/01/2018, | [facility] | | vomiting/pain ever since COMPARISON: 04/27/2018 CT TECHNIQUE: | RADIOLOGY VOICE | | Tamping Machine Operator Road Forms radiograph was performed. Single contrast exam of the esophagus, | RECOGNITION 2 | | gastric pouch, and gastrojejunostomy in upright positioning. | | | Radiation dose reduction technique was maximized where appropriate | | | using pulsed fluoroscopy and fluoro-store images. Fluoro Time 57 | | | second(s) FINDINGS: Tamping Machine [address] Forms shows stone in the upper pole of [...] Note | + + | Service Account, Capitaine Train Res In Interface - 06/07/2018 11:18 AM PST EXAM: Esophagram | | with mail room radiograph HISTORY: RYGB 03/01/2018, vomiting/pain ever since COMPARISON: | | 04/27/2018 CT TECHNIQUE: Tamping Machine Operator [address] Forms radiograph was performed. Single contrast exam of the | | esophagus, gastric pouch, and gastrojejunostomy in upright positioning. Radiation dose | | reduction technique was maximized where appropriate using pulsed fluoroscopy and | | fluoro-store images. Fluoro Time 57 second(s) FINDINGS:Tamping Machine Operator Road Forms shows stone in the upper | | [...] Preliminary: Evy Ramirez MD Dictation initiated: Evy | Analisa Ramirez MD 06/07/2018 10:04 AM | |Normal [...] | + + + + + | [facility] | [address] | [place] [address] | | | SERVICES, CORE | CLARENCE [...] [facility] | | considered for monitoring termite treater helper glycemic control in patients with: | [...] [facility] | [address] | [place] [address] | | | SERVICES, SPECIAL | PARK [...] B: | | | | | | ShopSquad/Ownza/CSPerformed | | | | | | by FORVM,[address] | | | | | | Natalia Parson, [facility] | | | | | | [address] | | | | | | [phone]. | | | | | | Ismael [...] [facility] | [address] | [place], [place] | | | [facility] | | [address] | | + + + + + [...] the MDRD equation recommended by the | [facility] | | National Kidney Disease Education Program. [...] [facility] | [address] | [place] [address] | | | SERVICES, CORE | PARK [...] [facility] | [address] | [place] [address] | | | SERVICES, CORE | PARK [...] + | [facility] | [address] | [place] [address] | | | SERVICES, CORE | PARK [...] | + + + + + | [facility] | [address] | [place] [address] | | | SERVICES, CORE | PARK [...] + + | [facility] | [address] [facility] | [place] [address] | | | CLAIRE, LYDIA | PARK [...] [facility] | [address] | [place] [address] | | | CLAIRE, CORE | CLARENCE [...]
--- OUTSIDE RECORDS SUMMARY | ~2019-12-19 | XMS | Encounter Summary ---
Demographics + + + | Address | [address] | | | [place] [address] | + + + | Home Phone [...] [place], [place] | | | | | [address] | | + + + + + | Ellie Vang | ECON | Unknown | | + + + + + Care Team Providers + +------+ + | Care Diesel Pile Hammer Operator Name | Role | Phone | [...] + + | 01/01/ | Emergency | [facility] Emergency | Fide Hester | | | 2017 - | | Department [address] | MD Raza [address] [facility] | | | | | [address] | [address] | | | 01/02/ | | [facility] | [place], [place] | | | 2017 | | [place], [place] | [address] | | | | | [address] | [phone] | | | | | [phone] | | | | | | | Jaime Yee, | | | | | | ANP [address] | | | | | | [facility] [address] | | | | | | [place], [place] | | | | | | [address] | | | | | | [phone] | | | | | | | | | | | | Sheree Aguiar MD | | | | | | [address] | | | | | | [place], [place] | | | | | | [address] | | | | | | | | | | | | Felix Cardoza, | | | | | | PATIENT COORDINATOR FRONT DESK [address] | | | | | | [facility] [address] [facility] [address] | | | | | | [place], [place] | | | | | | [address] | | | | | | [phone] | | | | | | | [...] ready for discharge. Thank you for choosing [facility] for your healthcare needs. Abdominal Hernia [...] living will and a durable power of compliance attorney for health care. Bring a copy [...] apply lotions, perfume s, deodorants, or nail algerian. Do not shave the surgical site yourself. [...] driving, and getting back to your [facility] routine. When should you call your [...] Repair: Before Your Surgery", log into your Professionali.ru a ccount at [email or web address]. You can enter U288 in the "ZoomCare Library" search box . Not on Professionali.ru? Review the Famo.ust section of your After Visit Summary for directions on anjel aguero to sign up. Current as of: March 04, 2016 Content Version: 11.2 4176-8660 [employer]. Care instructions adapted under license by [facility]. If you have questions about a medical condition or this instr uction, always ask your healthcare professional. [employer] disclaims any curly anty or liability for [...] changes in the way you eat. An dental billing specialist to help you be more active [...] Prepare for Weight-Loss Surgery", log into your Professionali.ru account at [email or web address]. You can enter C413 in the "ZoomCare Library" s earch box. Not on Professionali.ru? Review the Professionali.ru section of your After Visit Summary for directions on anjel aguero to sign up. Current as of: May 08, 2016 Content Version: 11.2 8084-6573 [employer]. Care instructions adapted under license by [facility]. If you have questions about a medical condition or this instr uction, always ask your healthcare professional. [employer] disclaims any curly anty or liability for [...] | | 0 | | | | [id number]-GEN | mouth two times | | | [...] MD - 01/02/2017 7:49 AM PDT [facility] DEPARTMENT OF SURGERY EMERGENCY GENERAL SURGERY [...] wall hernias, laci hobbs was flown from [place] with abdominal pain from a recurrent, reducible [...] uss with Dr. Moore. Mary Ball MD [id number] On License Of [facility] [address] [place] [facility] [place] [address] documented in this en counter Plan of Treatment +--------+---------+ + + + | Date | Type | Specialty | Care Team | Description | +--------+---------+ + + + | 03/15/ | Office | Cardiology | Randell Franks, | | | 2019 | Visit | | [address] | | | | | | [place], [place] | | | | | | [address] | | | | | | [phone] | | | | | | | [...] AMES | [address] | [place], [place] | | | [place] [facility] | [address] | [address] | | | TESTS | | | [...] | | | LABORATORY | | | [facility] | | | SERVICES, | | | [...] the MDRD equation recommended by the | [facility] | | National Kidney Disease [...] | + + + + + | [facility] | [address] | [place] [address] | | | LYDIA RANGEL | CLARENCE [...] KW[facility]U | [address] | [place], [place] | | | [place] [facility] | [facility] | [address] | | | TESTS | | | [...] MEDICAL CENTER | [address] | [place] [address] | | | SERVICES, CORE | PARK [...] | + + + + + | [facility] | [address] | [place] [address] | | | SERVICES, CORE | CLARENCE [...] | + + + + + | [facility] - | [address] | [place] [address] | | | [place] | | | [...] [facility] | [address] | [place] [address] | | | CLAIRE, LYDIA | CLARENCE [...] 26 | 23 - 29 mmol/L | [facility] - | | | TC02 | | | MARQUAM | | | | | | JUSTINE DAWN | | | | | | OF CARE | | | | | | TESTS | | + + + + + + | ED BG POC | 7.30 (L) | 7.35 - 7.45 | [facility] - | | | PH | [...] AMES | [address] | [place], [place] | | | JUSTINE ADWN OF CARE | [address] | [address] | | | TESTS | | | [...] [facility] | [address] | [place] [address] | | | SERVICES, | [address] [...] | + + + + + | [employer] | [address] | [place] [address] | | | SERVICES, | [address] [...] MEDICAL CENTER | [address] | [place] [address] | | | SERVICES, CORE | CLARENCE [...] [facility] | [address] | [place] [address] | | | SERVICES, CORE | PARK [...] | | | LABORATORY | | | [facility] | | | SERVICES, | | | [...] MEDICAL CENTER | [address] | [place] [address] | | | SERVICES, CORE | [address] | | | + + + + + ED INFORMATION EXCHANGE (01/01/2017 8:22 AM PDT) + + + + + + | Component | Value | Ref Range | Performed | Pathologist | | | | | At | Signature | + + + + + + | [facility] | [id number] | | [facility] | | | | [id number] | | MEDICAL | | | | [...] ---- | | | RADHA GOODRICH at [facility] | | | [facility] Unknown Primary Care | | | Unknown - Current Radha Goodrich DO | | | [phone] Primary Care | | | Unknown - Current | | + + + + + + + + | Performing | Address | City/State/Zipcode | Phone Number | | Organization | | | | + + + + + | [facility] | [address] | [place], [place] | [phone] | | TECHNOLOGIES | [address] | [address] | | + + + + + [...] rectal, | | | DAILY NEEDED, Starting [facility] | | | 01/01/17 at 2301, Until [...] mL, intravenous, NEEDED, | | | Starting [facility] 01/01/17 at 1751, | | | Until [...] | | | First dose on [facility] 01/01/17 at 2100, | | | | [...] 17 6:19 | | | | | [facility] 01/01/17 at 1830 | | PM PDT [...] mg, intramuscular, | | | NEEDED, Starting [facility] 01/01/17 at | | | 1751, Until Thu01/02/17 at 1734, | | | CBG less than 70 mg/dL per Adult | | | Hypoglycemia Protocol | | + +---+ | | | + +---+ | glucose chewable tablet 16 g | | | 16 g, oral, NEEDED, Starting | | | [facility] 01/01/17 at 1751, Until Thu | | [...] AM PDT | | | | | [facility] 01/01/17 at 1944, Until | | | [...] 17 6:19 | | | | | Jsamyne 01/01/17 at 1830 | | PM PDT [...] | | | ONCE, 1 dose, [facility] 01/01/17 at 0945 | | AM PDT [...]
--- OUTSIDE RECORDS SUMMARY | ~2019-12-19 | XMS | Encounter Summary ---
Demographics + + + | Address | [address] | | | [place] [address] | + + + | Home Phone [...] [place], [place] | | | | | [address] | | + + + + + | Ellie Vang | ECON | Unknown | | + + + + + Care Team Providers + +------+ + | Care Stave Inspector Name | Role | Phone | [...] | Morbid | DANIELLE BrunerP | [address] | | | | | obesity with | [address] | | | | | BMI of [address] | Mailcode: | | | | | and over, | [place], [place] | [facility] | | | | | adult (HCC) | [address] | for Health | | | | | Severe | Phone: | and Healing, | | | | | muscle | | Building 1, | | | | | deconditioni | Fax: | [address] | | | | | ng | [phone] | [place], [place] | | | | | Procedures | | [address] | | | | | PHYSICAL | | Phone: | | | | | THERAPY | | [phone] | | | | | REFERRAL | | Fax: | | | | | | | [phone] | +--------+--------+ + + + + Encounter Details +--------+ + + + + | Date | Type | Department | Care Team | Description | +--------+ + + + + | 02/02/ | Sales Marketing Director | Digestive Health | Shereen Georges, | Morbid obesity with | | 2017 | | Center at [facility] [address] | ACNP [address] | BMI of 70 and over, | | | | [address] | Ave [facility] [place] | adult (HCC) (Primary | | | | Mailcode: Center | [address] | Dx); Severe muscle | | | | for Health and | | deconditioning | | | | Healing, [address] | | | | | | [place], [place] | | | | | | [address] | | | | | | | [...] | | 2019 | Visit | | [address] | | | | | | [place], [place] | | | | | | [address] | | | | | | [phone] | | | | | | | [...]
--- OUTSIDE RECORDS SUMMARY | ~2019-12-19 | XMS | Encounter Summary ---
Demographics + + + | Address | [address] | | | [place] [address] | + + + | Home Phone [...] + | Katalina Padilla | ECON | [address] | | | | | [place], [place] | | | | | [address] | | + + + + + | Ellie Vang | ECON | Unknown | | + + + + + Care Team Providers + +------+ + | Care Knife Grinder Name | Role | Phone | + +------+ + | Kenyatta Cardenas MD | PCP | | + +------+ + Encounter Details +--------+ + + + + | Date | Type | Department | Care Team | Description | +--------+ + + + + | 03/18/ | Transcribe | [facility] | Transcribe | | | 2019 | Orders | [facility] [address] | Encounter, Provider, | | | | | [address] Mailcode: | [address] | | | | | [facility] | [place] [address] | | | | | Health and Healing, | | | | | | [address] | | | | | | [place], [place] | | | | | | [address] | | | | | | [phone] | | | +--------+ + + + [...] [address] | | | | | | [place], [place] | | | | | | [address] | | | | | | [phone] | | | | | | | | +--------+---------+ + + + documented as of this encounter Results EGD (04/07/2019 10:53 AM PDT) + + | Specimen | + + | | + + + + + | Narrative | Performed At | + + + | MRN: | [facility] | | [id number] Date: 04/07/2019Patient Name: Elzbieta Curtis #: | ENDOSCOPY | | [id number] of : 1975CSN: [id number] Type: | | | AmbulatoryRoom: Endo 5Procedure: Upper GI | | | endoscopyIndications: Generalized abdominal pain, Nausea | | | with vomitingProviders: TAL LUND MD | | | (Doctor), BERNARDO BERNARD RN (Nurse), | | | GENECRE Flare Code (Vmware Consultant)Referring MD: SYLVIA Kilpatrick | | | RASTA SAMPSONCNPRequesting Provider: Medicines: | | | Midazolam 8 [...] | | | The [employer] [id number] Endoscope #[id number] | | | was introduced through the [...] + | Performing | Address | City[facility] | Phone Number | | Organization [...]
--- OUTSIDE RECORDS SUMMARY | ~2019-12-19 | XMS | Encounter Summary ---
Demographics + + + | Address | [address] | | | [place] [address] | + + + | Home Phone [...] [place], [place] | | | | | [address] | | + + + + + | Ellie Vang | ECON | Unknown | | + + + + + Care Team Providers + +------+ + | Care [facility] Name | Role | Phone | + [...] | | | | | | [facility] | | | | | | [facility] | | | | | | Desk Located on the | | | | | | 9th floor | | | | | | [place], [place] | | | | | | [address] | | | +--------+ + + + [...] | | | | | | [place], [place] | | | | | | [address] | | | | | | [phone] | | | | | | | [...]
--- OUTSIDE RECORDS SUMMARY | ~2019-12-19 | XMS | Encounter Summary ---
Demographics + + + | Address | [address] | | | [place] [address] | + + + | Home Phone [...] [place], [place] | | | | | [address] | | + + + + + | Ellie Vang | ECON | Unknown | | + + + + + Care Team Providers + +------+ + | Care Silk Hanger Name | Role | Phone | [...] | | 2018 | | Center at [facility] [address] | MD [address] | | | | | [address] | [place], [place] | | | | | Mailcode: [place] | [address] | | | | | [facility] and | [phone] | | | | | [place] [address] | | | | | | [place], [place] | | | | | | [address] | | | | | | [phone] | | | +--------+--------+ + + + [...] [address] | | | | | | [place], [place] | | | | | | [address] | | | | | | [phone] | | | | | | | | +--------+---------+ + + + documented as of this encounter Visit Diagnoses Not on filedocumented in this encounter"
--- OUTSIDE RECORDS SUMMARY | ~2019-12-19 | XMS | Encounter Summary ---
Demographics + + + | Address | [address] | | | [place] [address] | + + + | Home Phone [...] [place], [place] | | | | | [address] | | + + + + + | Ellie Vang | ECON | Unknown | | + + + + + Care Team Providers + +------+ + | Care Human Resources Trainer Name | Role | Phone | + +------+ + | Fadi Goodrich DO | PCP | | + +------+ + Encounter Details +--------+ + + + + | Date | Type | Department | Care Team | Description | +--------+ + + + + | 07/18/ | Abstract | Digestive Health | Shereen Georges, | | | 2012 | | Center at [facility] [address] | ACNP [address] | | | | | [address] | Ave [place], [place] | | | | | Mailcode: [place] | [phone] | | | | | for Health and | | | | | | [facility] | | | | | | [facility] [place] | | | | | | [address] | | | | | | | [...] | | | | | | [place], [place] | | | | | | [address] | | | | | | [phone] | | | | | | | | +--------+---------+ + + + documented as of this encounter Visit Diagnoses Not on filedocumented in this encounter"
--- OUTSIDE RECORDS SUMMARY | ~2019-12-19 | XMS | Encounter Summary ---
Demographics + + + | Address | [address] | | | [place] [address] | + + + | Home Phone [...] [place], [place] | | | | | [address] | | + + + + + | Ellie Vang | ECON | Unknown | | + + + + + Care Team Providers + +------+ + | Care Apparatus Lineman Name | Role | Phone | + +------+ + | Kenyatta Cardenas MD | PCP | | + +------+ + Encounter Details +--------+---------+ + + + | Date | Type | Department | Care Team | Description | +--------+---------+ + + + | 06/14/ | Office | Cardiology | Randell Franks, | Type 2 diabetes | | 2019 | Visit | Preventive at [facility] | MD [address] | mellitus without | | | | [address] | [place], [place] | complication, with | | | | Mailcode: CH9A | [phone] | long-term current | | | | [facility] | [phone] | use of insulin ([facility]) | | | | and Healing, | | (Primary Dx); | | | | [address] | | Morbid obesity with | | | | [place], [place] | | BMI of 70 and over, | | | | [address] | | adult (HCC) | | | | [phone] | | | +--------+---------+ + + + [...] daily. BELBUCA 300 mcg buccal film CALCIUM [id number]&[id number]-C1-[id number]-GENIS ORAL Take 2 tablets by mouth two [...] of metformin, and she reports her last wytkk-ei-rfje A1 c was 5.5% on this dose. [...] CREATININE PLASMA (LAB) 0.85 0.70 EGFR - ALGERIAN >60 >60 EGFR NON -ALGERIAN >60 >60 GLUCOSE, PLASMA (LAB) 123 (H) [...] is currently being managed well by her Brusher Tender with diuretics and main tenance of her [...] management of her heart failure by her [facility]usher Tender 3) discontinue metformin 4) check 24 urine calcium and creatinine 5) Continue phentermine 37.5 mg a day 6) restart topiramate 50 mg twice daily and go up to 100 mg twice daily as tolerated 7) Follow-up with the above results and recommendations and again in 6 monthsElectronicall y signed by Randell rFanks MD at 01/07/2019 10:37 AM PDTdocumented in this encounter Plan of Treatment +--------+---------+ + + + | Date | Type | Specialty | Care Team | Description | +--------+---------+ + + + | 03/15/ | Office | Cardiology | Randell Franks, | | | 2019 | Visit | | [address] | | | | | | [place], [place] | | | | | | [address] | | | | | | [phone] | | | | | | | [...] | | | | use of insulin ([facility]) | | | | | [...] + | [facility] - | [address] | [place] | [phone] | | [place] | | | | [...]
--- OUTSIDE RECORDS SUMMARY | ~2019-12-19 | XMS | Encounter Summary ---
Demographics + + + | Address | [address] | | | [place] [address] | + + + | Home Phone [...] [place], [place] | | | | | [address] | | + + + + + | Ellie Vang | ECON | Unknown | | + + + + + Care Team Providers + +------+ + | Care Mate Fishing Vessel Name | Role | Phone [...] | [facility] [address] | Jackie Cosme MD | | | 2020 - | Encounter | [address] | [address] [facility] | | | | | [place], [place] | [place] [address] | | | 08/23/ | | [address] | [phone] | | | 2019 | | [phone] | | | | | | | Nay Joe, | | | | | | [address] | | | | | | [address] | | | | | | [place], [place] | | | | | | [address] | | | | | | [phone] | | | | | | | | | | | | Jones Tiwari, | | | | | | [address] | | | | | | [address] | | | | | | [place], [place] | | | | | | [address] | | | | | | [phone] | | | | | | | [...] laparoscopic antecolic nilesh-en-y gastric bypass i n 2017, obstructive sleep apnea, bipolar disorder, depression, [...] the gallo. She was transitioned off her COSMETIC SALES on POD1. She di d have [...] condition. She will follow up at the [facility] with Dr. Tiwari in 2- 3 [...] by mouth once daily at bedtime. CALCIUM [id number]-[id number]-GENIS ORAL Take 2 tablets by mouth two [...] daily. ASK your doctor about these medications SPORTS TEACHER THYROID 30 mg Tab tab Generic drug: [...] do an activity and your surgi olga liida wounds and areas of repair hurt, then [...] the prescribed narcotic-opioid (e.g. oxycodone, hydrocodone, Vicodin, Foster, Percocet, Dilaudid) as needed. However, Vicodin/Foster and Percocet contain acetam inophen in the [...] Narcotic-opioid pain medications (e.g. oxycodone, hydrocodone, Vicodin, Foster, Percocet, Di laudid) can be constipating, therefore you should take a stool softener on the same day as s tarting your narcotic pain medicine. Options include: Milk of Magnesia: 2 Tablespoons Twice daily Colace (=Docusate): 1 pill Twice daily Miralax: 1 Tablespoon (17 grams) daily (check bottle for mixing instructions) While these are some recommendations, any uojq-wrk-aiblinf stool softener should work, and generics are fine to use. Increase your fluids, especially your intake of water Increase your activity. Walk frequently. ANTICOAGULATION: We recommend you make an appointment to be seen in your local anticoagulation clinic on [facility] 08/25/19 to recheck your INR and for ongoing [...] and plan of care. JONES TIWARI MD [facility] [address] [place] [address] documented in this encounter Discharge Instructions Discharge [...] hours by calling the surgery office at [phone]. After hours, weekends and holidays, you may call the hospital double head machine operator at [phone] and have the nylon machine operator Green Team for general surgery paged. Discharge [...] the gallo. She was transitioned off her COSMETIC SALES on POD1. She did have dif [...] dition. She will follow up at the [facility] with Dr. Tiwari in weeks. She will [...] the prescribed narcotic-opioid (e.g. oxycodone, hydrocodone, Vicodin, Foster, Percocet, Dilaudid) as needed. However, Vicodin/Foster and Percocet contain acetam inophen in the [...] Narcotic-opioid pain medications (e.g. oxycodone, hydrocodone, Vicodin, Foster, Percocet, Di laudid) can be constipating, therefore you should take a stool softener on the same day as s tarting your narcotic pain medicine. Options include: Milk of Magnesia: 2 Tablespoons Twice daily Colace (=Docusate): 1 pill Twice daily Miralax: 1 Tablespoon (17 grams) daily (check bottle for mixing instructions) While these are some recommendations, any oahu-kbr-nvbyygl stool softener should work, and generics are fine to use. Increase your fluids, especially your intake of water Increase your activity. Walk frequently. ANTICOAGULATION: We recommend you make an appointment to be seen in your local anticoagulation clinic on Thu08/25/19 to recheck your INR and for ongoing management of your warfarin. FOLLOW-UP: Please call Dr. Tiwari's office ([phone]) to schedule a follow-up appointment for 2-3 [...] | | 0 | | | | CRB&DIE-R0-PRG14-GEN | mouth two times | | | [...] to | 8 patch | 0 | 01/28/20 | | | topical adhesive | skin [...] + + +---------+ + + | thyroid (SPORTS TEACHER | Take 30 mg by mouth | [...] home with assist PRN. Anticipate discharge michelle Chadnler MD [facility], PGY-1 [place] [employer] Host/Hostess Pager: [phone] signed by Jones Tiwari MD at 08/22/2019 [...] dc in 2-3 days Gadiel Chandler MD [facility], PGY-1 Green Restaurant Host/Hostess Pager: [phone] Associated attestation - Jones Tiwari MD - 08/21/2019 9:57 AM PSTI performed a hist ory and physical examination of the patient and discussed her management with the resident. I reviewed the resident s note and agree with the documented findings and plan of care. JONES TIWARI MD [facility] [address] [place] [address] Valencia Zamora MD - 08/20/2019 8:42 AM [...] well. - ruiz out today - dc COSMETIC SALES - ppx lovenox today - therapeutic [...] care -Multimodal pain control Joselyn Everett MD [facility] General Surgery PGY1 [id number] Gadiel Armstrong MD - 08/19/2019 12:34 PM [...] hernia repair with mesh Gadiel Chandler MD [facility], PGY-1 Green Restaurant Host/Hostess Pager: [phone] documented in this encounter Plan of Treatment +--------+---------+ + + + | Date | Type | Specialty | Care Team | Description | +--------+---------+ + + + | 03/15/ | Office | Cardiology | Aly Franks, | | 2019 | Visit | | [address] | | | | | | [place], [place] | | | | | | [address] | | | | | | [phone] | | | | | | | [...] | MADAY CEDILLO ONLY | Urgent | 08/18/2019 | | [...] + + + + | [facility] | [address] | [place] [address] | | | SERVICES, CORE | PARK [...] [facility] | [address] | [place] [address] | | | SERVICES, CORE | PARK [...] | + + + + + | [facility] | [address] | [place] [address] | | | SERVICES, CORE | CLARENCE [...] (H) | 70 - 99 mg/dL | [facility] - | | | GLUCOSE, | | [...] [facility] | [address] | [place], [place] | | | [facility] CARE | [address] | [address] | | | TESTS | | | [...] [facility] | [address] | [place], [place] | | | [facility] | [address] | [address] | | | TESTS | | | [...] [facility] | [address] | [place] [address] | | | SERVICES, | [address] [...] + + + + | [facility] | [address] | [place] [address] | | | CLAIRE, | [address] | | | | [...] [facility]QU[facility] | | | | | | LPÓEZ, POINT | | | | | | [...] - [facility] | [address] | [place], [place] | | | [facility] OF [facility] | [address] | [address] | | | TESTS | | | [...] | [facility] | | | GRAVITY | [place] performed by | | LABORATORY | | [...] [facility] | [address] | [place] [address] | | | SERVICES, CORE | PARK [...] SPECIMEN | Sample received with | | NKECHI | | | COLLECTED, | adeq label/volume [...] | + + + + + | [facility] | [address] | [place] [address] | | | SERVICES, | [address] [...] [facility] | [address] | [place] [address] | | | SERVICES, CORE | PARK [...] [facility] | [address] | [place] [address] | | | SERVICES, CORE | [address] | | | + + + + + INR (08/18/2019 4:18 PM PST) + +-------+ + + + | Component | Value | Ref Range | Performed | Pathologist | | | | | At | Signature | + +-------+ + + + | INR | 1.11 | 0.90 - 1.20 INR | [facility] | | | | | | LABORATORY [...] | + + + + + | [facility] | [address] | [place] [address] | | | SERVICES, LYDIA | [address] | | | + + + + + LIPASE, PLASMA (08/18/2019 4:18 PM PST) + +---------+ + + + | Component | Value | Ref Range | Performed | Pathologist | | | | | At | Signature | + +---------+ + + + | LIPASE | 117 (L) | 152 - 353 U/L | [facility]KE[facility]I | | | (LAB) | | | [...] + + | [facility] | [address] [facility] | [place] [address] | | | SERVICES, CORE | CLARENCE [...] | + + + + + | [facility] | [address] [facility] | [place] [address] | | | SERVICES, [facility] | [address] | | | + + + + + ED INFORMATION EXCHANGE (08/18/2019 1:47 PM PST) + + | Specimen | + + | | + + + + + | Narrative | Performed At | + + + | COLLECTIVE?NOTIFICATION?08/18/2019 13:47?DYLAN ROMERO?MRN: | COLLECTIVE | | [id number] Criteria Met 5 Visits In 12 Months Has | MEDICAL | | Guidelines PDMP Security and Safety No recent Security Events | [employer] | | currently on file ED Care Guidelines from [facility] - [place]ra | | | Last Updated: 12/06/18 9:53 AM Care Coordination: Receiving | | | mental health services with [facility].? Please contact [facility] for | | | mental health concerns.? Sarah/Toni Centeno: [phone]? | | | Kishan: [phone].? These are guidelines and the provider | | | should exercise clinical judgment when providing care. Care | | | History Medical/Surgical 05/24/19 12:00 AM [facility] | | [facility] PATIENT HAS AN APT ON 06/16/[address] HYLTON. | | | 05/11/19 12:00 AM [facility] Patient is | | | currently established with [facility]. If patient is seen in | | | the ED during business hours. Please contact CHWs at [facility] | | | Clinic. Care Recommendation: This [...] care. 08/23/18 12:00 AM | | | [facility] PATIENT HAS A PCP APT TO ESTABLISH | | | CARE ON 10/04/18 @ 10:00AM WITH DR HYLTON. Flags | | | [place] - [place] | | | [place]) to help support Medicaid members with mental | | | illness. [facility] uses claims data with a 36-month | [...] | are updated weekly. / Attributed By: [facility] ([employer]) / | | | Attributed On: 08/09/2019 Prescription Drug Report (12 Mo.) | | | Rx Details Fill Date Drug Description Qty. Prescriber CS MED | | | 2019-08-16 HYDROCODONE-ACETAMIN 5-325 MG 10 SAMANTHA LEPE, DMD 2 16.667 | | | 2019-08-12 ALPRAZOLAM 1 MG TABLET 90 WINSTON SPAS 4 0 2019-08-02 | | | SUDAFED 12HR 120 MG CAPLET 30 JONES DAVISON JR. 0 2019-07-26 | | | FENTANYL 12 MCG/HR PATCH 10 BETZY BALDWIN PA-C 2 0 2019-07-12 | | | ALPRAZOLAM 1 MG TABLET 60 WINSTON JOSE 4 0 2019-07-10 SUDOGEST 12 | | | HOUR 120 MG CAPLET 30 JONES DAVISON, JR. 0 2019-06-28 FENTANYL 12 | | | MCG/HR PATCH 10 BETZY BALDWIN PA-C 2 0 2019-06-27 SUDOGEST 12 | | | HOUR 120 MG CAPLET 30 JONES DAVISON, JR. 0 2019-06-26 | | | HYDROCODONE-ACETAMIN [...] (12 | | | mo.) Facility Visits [facility] 1 [facility] and | | | [facility] 2 [facility] 7 Total 10 Note: | | | Visits indicate total known visits. Recent Emergency Department | | | Visit Summary Date Facility [facility] State Type Diagnoses or Chief | | | Complaint Aug 18, 2019 [facility] [place] | | | [place] Emergency 10,800. amr Jun 25, 2019 [facility] | | | [place] Emergency remote computer terminal operator (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 | | | Anxiety disorder, unspecified Cellulitis of abdominal wall | | | Acute embolism and thrombosis of deep veins of r up extrem | | | Nicotine dependence, unspecified, uncomplicated Migraine, unsp, | | | not intractable, without status migrainosus Unspecified | | | abdominal pain Allergy status to oth drug/meds/biol subst status | | | Other fpc (current) drug therapy Allergy status to | | | penicillin Jun 19, 2019 [facility] [place] Emergency | | | remote computer terminal operator (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 Prsnl hx [...] unspecified Jun 01, 2019 | | | [facility] [place] Emergency Headache Allergy | | | status to penicillin Anxiety disorder, unspecified | | | Obesity, unspecified Migraine, unsp, not intractable, without | | | status migrainosus Other machine long goods helper (current) drug therapy | | | Allergy status to oth drug/meds/biol subst status snf | | | (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 remote computer terminal operator (current) use of | | | aspirin May 23, 2019 [facility] [place] Emergency | | | Anxiety disorder, unspecified Acute embolism and thrombosis of | | | deep veins of r up extrem Allergy status to penicillin | | | Other fpc (current) drug therapy Pain in right arm | | | snf (current) use of aspirin Allergy status to oth | | | drug/meds/biol subst status May 20, 2019 [facility] | | | [place] Emergency Generalized abdominal pain Allergy | | | status to oth drug/meds/biol subst status Unspecified abdominal | | | pain Anxiety disorder, unspecified Other chronic pain | | | Allergy status to penicillin remote computer terminal operator (current) use of | | | aspirin Prsnl hx of TIA (TIA), and cereb infrc w/o resid | | | deficits Other machine long goods helper (current) drug therapy May 13, | | | 2019 [facility] [place] Emergency | | | 10,800. A303 18,400. Bariatric surgery status 18,400. | | | Ventral hernia without obstruction or gangrene 18,400. Nausea | | | with vomiting, unspecified 18,400. Unspecified abdominal pain | | | 18,400. Nonspecific mesenteric lymphadenitis May 10, 2019 [facility] | [facility] [place] Emergency Nausea with vomiting, | | | unspecified Solitary pulmonary nodule Anxiety disorder, | | | unspecified Ventral hernia without obstruction or gangrene | | | Unspecified abdominal pain Diarrhea, unspecified Allergy | | | status to oth drug/meds/biol subst status Prsnl hx of TIA (TIA), | | | and cereb infrc w/o resid deficits Other machine long goods helper (current) | | | drug therapy Allergy status to penicillin December 03, 2018 [facility] | | | [facility]. [place] Emergency RIGHT LEG PAIN DUE TO FALL | | | Strain of unsp musc/tend at lower leg level, right leg, init | | | Aug 22, 2018 [facility] [place] Emergency Other | | | fpc (current) drug therapy Upper abdominal pain, | | | unspecified Bariatric surgery status Allergy status to oth | | | drug/meds/biol subst status Noninfective gastroenteritis and | | | colitis, unspecified Obesity, unspecified Anxiety | | | disorder, unspecified remote computer terminal operator (current) use of aspirin | | | Allergy status to penicillin Personal history of pulmonary | | | embolism Recent Inpatient Visit Summary No recorded | | | inpatient visits. Care Team Provider Specialty Phone Fax Service | | | Dates Eagle Nino CHW Community Health Worker | | | Jul 03, 2019 - Current JONES DAVISON D.M.D. Dentist: | | | Concrete Pile Driver Operator May 23, 2019 - | | | Current Rob Tilley Logistics Account Manager/Dispensary Technician ([id number]) | | | [phone] Mar 27, 2018 - Current Bernard Hylton MD Internal | | | Medicine: Pulmonary Disease Aug 23, 2018 - Current | | | [employer] This patient has registered at the [facility] | | | [facility] Emergency Department For more information | | | visit: | | | [email or web address] | | | [email or web address] PLEASE NOTE: 1. Any care recommendations [...] or completeness of information provided. ? 2020 [employer] | | | [employer]. - [email or web address] | | + + + + + [...] on fileED Care Guidelines | | from [facility] - [place] Updated: 12/06/18 9:53 AM Care Coordination:Receiving | | mental health services with [facility].? Please contact [facility] for mental health | | concerns.? Sarah/Toni Centeno: [phone]? Kishan: [phone].?These are | | guidelines and the provider should exercise clinical judgment when providing care.Care | | HistoryMedical/Bzyefqrt18/29/19 12:00 AM [facility] PATIENT HAS AN APT | | ON 06/16/[address] HYLTON.05/11/19 12:00 AM [facility] Patient is | | currently established with [facility]. If patient is seen in the ED during | | business hours. Please contact CHWs at [facility].Care Recommendation:This | | patient has had 5 [...] when providing | | care.08/23/18 12:00 AM [facility] PATIENT HAS A PCP APT TO ESTABLISH CARE | | ON 10/04/18 @ 10:00AM WITH DR HYLTON. Flags [place] Dis[place] - [place] | | developed a flag ([place] Dis[place]) to help support Medicaid members with | | mental illness. [facility] uses claims data with a 36-month rolling look | | back period to identify members who have had two or more diagnoses of mental illness | | (does not need to be primary) in any setting (e.g. ED, Inpatient, primary care). Flagged | | members are included in the ED Disparity Measure denominator population. Flags are | | updated weekly. / Attributed By: [facility] ([place]) / Attributed On: | | 08/09/2019 Prescription Drug Report (12 Mo.)Rx DetailsFill Date Drug Description Qty. | | Prescriber CS MED 2019-08-16 HYDROCODONE-ACETAMIN 5-325 MG 10 SAMANTHA LEPE, DMD 2 16.667 | | 2019-08-12 ALPRAZOLAM 1 MG TABLET 90 WINSTON JEFFAS 4 0 2019-08-02 SUDAFED 12HR 120 MG | | CAPLET 30 JONES LANEYJR. 0 2019-07-26 FENTANYL 12 MCG/HR PATCH 10 [...] 0 E.D. Visit Count (12 mo.)Facility Visits [facility] 1 [facility] | | and [facility] 2 [facility] 7 Total 10 Note: Visits indicate | | total known visits. Recent Emergency Department Visit SummaryDate Facility City State | | Type Diagnoses or Chief Complaint Aug 18, 2019 [facility] | | [place] Emergency 10,800. amr Jun 25, 2019 [facility]. [place] Emergency | | snf (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 Anxiety disorder, unspecified | | Cellulitis of abdominal wall Acute embolism and thrombosis of deep veins of r up | | extrem Nicotine dependence, unspecified, uncomplicated Migraine, unsp, not | | intractable, without status migrainosus Unspecified abdominal pain Allergy status | | to oth drug/meds/biol subst status Other fpc (current) drug therapy Allergy | | status to penicillin Jun 19, 2019 [facility] [place] Emergency remote computer terminal operator | | (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 [...] unspecified Jun 01, 2019 | | [facility] [place] Emergency Headache Allergy status to penicillin | | Anxiety disorder, unspecified Obesity, unspecified Migraine, unsp, not | | intractable, without status migrainosus Other fpc (current) drug therapy | | Allergy status to oth drug/meds/biol subst status snf (current) use of | | anticoagulants snf (current) use of aspirin May 23, 2019 [facility] | | [place] Emergency Anxiety disorder, unspecified Acute embolism and thrombosis of | | deep veins of r up extrem Allergy status to penicillin Other fpc (current) | | drug therapy Pain in right arm remote computer terminal operator (current) use of aspirin Allergy | | status to oth drug/meds/biol subst status May 20, 2019 [facility] [place] | | Emergency Generalized abdominal pain Allergy status to oth drug/meds/biol subst | | status Unspecified abdominal pain Anxiety disorder, unspecified Other chronic | | pain Allergy status to penicillin snf (current) use of aspirin Prsnl hx | | of TIA (TIA), and cereb infrc w/o resid deficits Other fpc (current) drug | | therapy May 13, 2019 [facility] [place] Emergency | | 10,800. A303 18,400. Bariatric surgery status 18,400. Ventral hernia without | | obstruction or gangrene 18,400. Nausea with vomiting, unspecified 18,400. | | Unspecified abdominal pain 18,400. Nonspecific mesenteric lymphadenitis May 10, 2019 | | [facility] [place] Emergency Nausea with vomiting, unspecified Solitary | | pulmonary nodule Anxiety disorder, unspecified Ventral hernia without obstruction | | or gangrene Unspecified abdominal pain Diarrhea, unspecified Allergy status to | | oth drug/meds/biol subst status Prsnl hx of TIA (TIA), and cereb infrc w/o resid | | deficits Other fpc (current) drug therapy Allergy status to penicillin November | | 2018 [facility]. [place] Emergency RIGHT LEG PAIN DUE TO FALL | | Strain of unsp musc/tend at lower leg level, right leg, init Aug 22, [address] [address] | | [facility] [place] Emergency Other machine long goods helper (current) drug therapy Upper | | abdominal pain, unspecified Bariatric surgery status Allergy status to oth | | drug/meds/biol subst status Noninfective gastroenteritis and colitis, unspecified | | Obesity, unspecified Anxiety disorder, unspecified snf (current) use of | | aspirin Allergy status to penicillin Personal history of pulmonary embolism | | Recent Inpatient Visit SummaryNo recorded inpatient visits. Care TeamProvider Specialty | | Phone Fax Service Dates Eagle Nino CHW Community Health Worker | | Jul 03, 2019 - Current JONES DAVISON D.M.D. Dentist: Concrete Pile Driver Operator ([phone]) | | [phone] May 23, 2019 - Current Rob Tilley Logistics Account Manager/Care | | Coordinator Mar 27, 2018 - Current Bernard Hylton MD Internal Medicine: | | Pulmonary Disease Aug 23, 2018 - Current [employer] [place] patient has registered | | at the [facility] Department For more information | | visit: [email or web address] | | PLEASE NOTE: 1. Any care [...] completeness of information | | provided.? 2020 [employer]. - [email or web address] | | Allergy status to oth drug/meds/biol subst status | | Other fpc (current) drug therapy | | Allergy status to penicillin | | | |Jun 19, 2019 [facility] [place] Emergency | | snf (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 | | Prsnl [...] | | | |Jun 01, 2019 [facility] [place] Emergency | | Headache | | Allergy status to penicillin | | Anxiety disorder, unspecified | | Obesity, unspecified | | Migraine, unsp, not intractable, without status migrainosus | | Other fpc (current) drug therapy | | Allergy status to oth drug/meds/biol subst status | | snf (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 | | snf (current) use of aspirin | | | |May 23, 2019 [facility] [place] Emergency | | Anxiety disorder, unspecified | | Acute embolism and thrombosis of deep veins of r up extrem | | Allergy status to penicillin | | Other fpc (current) drug therapy | | Pain in right arm | | snf (current) use of aspirin [...] | Allergy status to penicillin | | remote computer terminal operator (current) use of aspirin | | Prsnl hx of TIA (TIA), and cereb infrc w/o resid deficits | | Other fpc (current) drug therapy | | | |May 13, 2019 [facility] [place] Emergency | | 10,800. A303 | | 18,400. Bariatric surgery status | | 18,400. Ventral hernia without obstruction or gangrene | | 18,400. Nausea with vomiting, unspecified | | 18,400. Unspecified abdominal pain | | 18,400. Nonspecific mesenteric lymphadenitis | | | |May 10, 2019 [facility] [place] Emergency | | Nausea with vomiting, unspecified | | Solitary pulmonary nodule | | Anxiety disorder, unspecified | | Ventral hernia without obstruction or gangrene | | Unspecified abdominal pain | | Diarrhea, unspecified | | Allergy status to oth drug/meds/biol subst status | | Prsnl hx of TIA (TIA), and cereb infrc w/o resid deficits | | Other machine long goods helper (current) drug therapy | | Allergy status to penicillin | | | |December 03, 2018 [facility]. [place] Emergency | | RIGHT LEG PAIN DUE TO FALL | | Strain of unsp musc/tend at lower leg level, right leg, init | | | |Aug 22, 2018 [facility] [place] Emergency | | Other machine long goods helper (current) drug therapy | | Upper abdominal [...] - Current | |JONES DAVISON D.M.D. Dentist: Concrete Pile Driver Operator May 23 019 - Current | |Rob Tilley Logistics Account Manager/Dispensary Technician Mar 27, 2018 - Current | |Bernard Hylton MD Internal Medicine: Pulmonary Disease Aug 23, 2018 - Current | | | |[employer] | |This patient has registered at the [facility] | |For more information visit: [email or web address] | |PLEASE NOTE: | | 1. Any [...] information provided. | | | |? 2020 [employer]. - [email or web address] | + + + + + + + | Performing | Address | City/State/Zipcode | Phone Number | | Organization | | | | + + + + + | [facility] | [address] | [place], [place] | [phone] | | TE[employer] | [address] | [address] | | + + + + + [...] PST | | | | | Starting 08/19/19 at 1732, | | | | | | | Until 08/19/19 at 1937, | | | | | [...] | | | | | dose, Starting 08/19/19 at | | | | | | [...] + + +---+---+---+ | HYDROmorphone 0.5 mg/mL COSMETIC SALES | Rate/Dos | 08/20/19 | | | | | (ADULT STANDARD DOSE) in 0.9 % | e Verify | 20 4:12 | | | | | NaCl COSMETIC SALES Dose: 0.2 mg, Lockout | | AM [...] | | | ONCE, 1 dose, Jasmyne 08/18/19 at 1530 | | PM PST [...] | | | oral, ONCE, 1 dose, 08/20/19 | | PM PST | | | | | at 1530 | | | | | | + +-------+ +------+---+---+ +---+---+ | | | +---+---+ + +-------+ +------+---+---+ | oxyCODONE (immediate release) | Given | 08/21/19 | 5 mg | | | | (ROXICODONE) tablet 5 mg 5 mg, | | 20 3:29 | | | | | oral, ONCE, 1 dose, 08/21/19 | | PM PST | | [...] | | | | | NEEDED, Starting [facility] 08/18/19 at | | | | | [...] | | | | | 08/20/19 at 4, Until Tue | | | | | [...] on [facility] 08/18/19 at | | AM PST [...]
--- OUTSIDE RECORDS SUMMARY | ~2019-12-19 | XMS | Encounter Summary ---
Demographics + + + | Address | [address] | | | [place] [address] | + + + | Home Phone [...] [place], [place] | | | | | [address] | | + + + + + | Ellie Vang | ECON | Unknown | | + + + + + Care Team Providers + +------+ + | Care Flight Service Agent Name | Role | Phone [...] floor | | | | | | [place], [place] | | | | | | [address] | | | +--------+ + + + [...] Flannery | | | | | | [place], [place] | | | | | | [address] | | | | | | [phone] | | | | | | | | +--------+---------+ + + + documented as of this encounter Visit Diagnoses Not on filedocumented in this encounter"
--- OUTSIDE RECORDS SUMMARY | ~2019-12-19 | XMS | Encounter Summary ---
Demographics + + + | Address | [address] | | | [place] [address] | + + + | Home Phone [...] + | Katalina Padilla | ECON | [address] | | | | | [place], [place] | | | | | [address] | | + + + + + | Ellie Vang | ECON | Unknown | | + + + + + Care Team Providers + +------+ + | Care Pc Maintenance Technician Name | Role | Phone | + +------+ + | Fadi Goodrich DO | PCP | | + +------+ + Encounter Details +--------+ + + + + | Date | Type | Department | Care Team | Description | +--------+ + + + + | 11/04/ | Telephone | Pain Center at [facility] | Leslie Mistry, | | | 2017 | | [address] | PhD [address] [facility] | | | | | Mailcode: CH15P | [address] | | | | | [facility] | [place], [place] | | | | | and [address], | [address] | | | | | | [phone] | | | | | Floor [place], [place] | | | | | | [address] | | | | | | [phone] | | | +--------+ + + + [...] Flannery | | | | | | [place], [place] | | | | | | [address] | | | | | | [phone] | | | | | | | | +--------+---------+ + + + documented as of this encounter Visit Diagnoses Not on filedocumented in this encounter"
--- OUTSIDE RECORDS SUMMARY | ~2019-12-19 | XMS | Encounter Summary ---
Demographics + + + | Address | [address] | | | [place] [address] | + + + | Home Phone [...] [place], [place] | | | | | [address] | | + + + + + | Ellie Vang | ECON | Unknown | | + + + + + Care Team Providers + +------+ + | Care Sports Therapist Name | Role | Phone | + +------+ + | Fadi Goodrich DO | PCP | | + +------+ + Encounter Details +--------+ + + + + | Date | Type | Department | Care Team | Description | +--------+ + + + + | 10/05/ | Abstract | Digestive Health | Hernandez Brian, | | | 2012 | | Center at [facility] [address] | MD [address] | | | | | [address] | [facility] | | | | | Mailcode: Center | [place], [place] | | | | | for Health and | [address] | | | | | [facility] | [phone] | | | | | [place], [place] | | | | | | [address] | | | | | | [phone] | | | +--------+ + + + [...] [place] | | | | | | [address] | | | | | | [phone] | | | | | | | | +--------+---------+ + + + documented as of this encounter Visit Diagnoses Not on filedocumented in this encounter"
--- OUTSIDE RECORDS SUMMARY | ~2019-12-19 | XMS | Encounter Summary ---
Demographics + + + | Address | [address] | | | [place] [address] | + + + | Home Phone [...] [place], [place] | | | | | [address] | | + + + + + | Ellie Vang | ECON | Unknown | | + + + + + Care Team Providers + +------+ + | Care Appeals Manager Name | Role | Phone | [...] | | | | and over, | [place], [place] | [facility] | | | | | adult (HCC) | [address] | for Health | | | | | Severe | Phone: | and Healing, | | | | | muscle | | Building 1, | | | | | deconditioni | Fax: | [address] Floor | | | | | ng | [phone] | [place], [place] | | | | | Procedures | | [address] | | | | | PHYSICAL | | Phone: | | | | | THERAPY | | [phone] | | | | | REFERRAL | | Fax: | | | | | | | [phone] | +--------+--------+ + + + + Encounter Details +--------+ + + + + | Date | Type | Department | Care Team | Description | +--------+ + + + + | 02/02/ | Domain Architect | Digestive Health | Shereen Georges, | Morbid obesity with | | 2017 | | Center at [facility] [address] | ACNP [address] | BMI of 70 and over, | | | | [address] | [address] [facility] [place] | adult (HCC) (Primary | | | | Mailcode: Center | [address] | Dx); Severe muscle | | | | for Health and | | deconditioning | | | | Healing, [address] | | | | | | [place], [place] | | | | | | [address] | | | | | | | [...] | | 2019 | Visit | | [address] | | | | | | [place], [place] | | | | | | [address] | | | | | | [phone] | | | | | | | [...]
--- OUTSIDE RECORDS SUMMARY | ~2019-12-19 | XMS | Encounter Summary ---
Demographics + + + | Address | [address] | | | [place] [address] | + + + | Home Phone [...] + | Katalina Padilla | ECON | [address] | | | | | [place], [place] | | | | | [address] | | + + + + + | Ellie Vnag | ECON | Unknown | | + + + + + Care Team Providers + +------+ + | Care Locomotive Firer Name | Role | Phone | + +------+ + | Fadi Goodrich DO | PCP | | + +------+ + Encounter Details +--------+ + + + + | Date | Type | Department | Care Team | Description | +--------+ + + + + | 10/27/ | Telephone | Pain Center at [facility] | Leslie Mistry, | | | 2017 | | [address] | PhD [address] [facility] | | | | | Mailcode: CH15P | [address] | | | | | [facility] | [place], [place] | | | | | and [address], | [address] | | | | | | [phone] | | | | | Floor [place], [place] | | | | | | [address] | | | | | | [phone] | | | +--------+ + + + [...] | | | | | | [place], [place] | | | | | | [address] | | | | | | [phone] | | | | | | | | +--------+---------+ + + + documented as of this encounter Visit Diagnoses Not on filedocumented in this encounter"
--- OUTSIDE RECORDS SUMMARY | ~2019-12-19 | XMS | Encounter Summary ---
Demographics + + + | Address | [address] | | | [place] [address] | + + + | Home Phone | | + + + | Preferred Language | Unknown | + + + | Marital Status | | + + + | Methodist Affiliation | Unknown | + + + | Race | Unknown | + + + | Ethnic Group | Unknown | + + + Author + + + | Author | [facility] | | | and Jeffana | + + + | Organization | [facility] [...] Providers + +------+ + | Care Oil Tanker Captain Name | Role | Phone | + +------+ + PCP | Unavailable | + +------+ + Encounter Details +--------+ + + + + | Date | Type | Department | Care Team | Description | +--------+ + + + + | 10/20/ | Orders Only | [facility] | Dharmesh Escobar, | | | 2016 | | NEPHROLOGY [place] | BEAUTY OPERATOR APPRENTICE [address] | | | | | [address] | [address] | | | | | [address] [place], [place] | [place] | | | | | [address] | [address] | | | | | [phone] | [phone] | | | | | | | [...] | 03/05/ | Office | Cardiology | Darlinyana Sulema | | | 2020 | Visit | | [address] | | | | | | [address] | | | | | | [place] [address] | | | | | | [phone] | | | | | | | [...]
--- OUTSIDE RECORDS SUMMARY | ~2019-12-19 | XMS | Encounter Summary ---
Demographics + + + | Address | [address] | | | [place] [address] | + + + | Home Phone [...] [place], [place] | | | | | [address] | | + + + + + | Ellie Vang | ECON | Unknown | | + + + + + Care Team Providers + +------+ + | Care Poultry Picker Name | Role | Phone | + [...] | | | | | Procedures | [place], [place] | [place], [place] | | | | | CONSULT TO | [address] | [address] | | | | | CAR | Phone: | Phone: | | | | | PREVENTATIVE | [phone] | [phone] | | | | | [facility] - | Fax: | Fax: | | | | | LIPIDS | [phone] | [phone] | +--------+--------+ + + + + Encounter Details +--------+---------+ + + + | Date | Type | Department | Care Team | Description | +--------+---------+ + + + | 09/11/ | Office | Cardiology | lOga Lidia Montanez, | Morbid obesity with | | 2017 | Visit | Preventive at [facility] | [address] | BMI of 70 and over, | | | | [address] | [address] | adult (HCC) (Primary | | | | Mailcode: CH9A | [place] | Dx) | | | | [facility] | [address] | | | | | and Healing, | | | | | | Building [address] | | | | | | [place], [place] | | | | | | [address] | | | | | | [phone] | | | +--------+---------+ + + + [...] appointment, Dietitian: Olga Lidia Montanez RD, LD [facility] Bariatric department (to reschedule classes): [phone] Goals: 1. Try to stop buying Pop-Tarts 2. Replace afternoon snack (think of this as lunch) with vegetables or fruit -cucumbers, carrots, broccoli, cauliflower, etc. -try making ranch dip w/ nonfat plain yogurt (regular or Jordanian) (or mix yogurt w/ salsa; o r chipotle hot sauce & kickapoo of [place] juice) 3. Snack ideas: -fruit -vegetables (with hummus or yogurt dip) -Jordanian yogurt - light (have w/ fruit if you're still hungry) -applesauce - unsweetened, w/ lowfat string cheese -1/4 cup nuts -lowfat string cheese -low-fat or non-fat cottage cheese w/ tomatoes 4. Aim for 60-80 grams of protein a day (see list) 5. Add Jordanian yogurt to breakfast Heart Protection Kitchen from [facility] Healthy eating made simple. What: FREE heart-healthy cooking demonstrations led by guest acid blower and nutrition experts. Samples are provided! Where: [facility] ([facility]), September, 2nd floor teaching kitchen When: All classes from 11:00am-12:00pm ? October 12 (led by Dr. Paulino Carreno MD) Please contact Keerthi Boyer at [phone] or email at [email or web address] for information on upcoming classes and to register. Space is limited - reserve your seat today! Want more info on what to eat? Watch the [employer] video, "Healthy Eating 101," at [email or web address]/[email or web address]?[email or web address] documented in this encounter Progress Notes Olga Lidia Montanez RD - 09/11/2017 2:30 PM PSTFormatting of this note might be different fro m the original. [facility] Center of Preventive Cardiology, Nutrition Consultation Referring provider: Dr. Randell Franks MD Referring diagnosis: obesity, HF, DM2 Visit type: Initial; vpxz-xr-hezk visit with patient Questions/Information desired today: Hoping [...] restarting the bariatric program; getting PT in [place] & has nutrition classes scheduled. Still has bariatric notebooks at home. Per [employer] message from Dr. Pandey 09/10/17: "Just tell [...] & 1% milk; occ w/ applesauce or Jordanian yogurt No L S (3pm): pop-tart or [...] it's too expensive. Occ fruit bowls from [facility]. Vegetables: every day w/ dinner [...] in PT 2x/week for bariatric program (in [place]) UBW: 385-391 lbs Max weight: 529 lbs Weight history: lost from 495 lbs to 383 lbs in 0218-3235 on Atkins diet ANTHROPOMETRICS: Height: Ht Readings from Last 1 Encounters: 09/11/17 1.549 m (5' 1") Weight: Wt Readings from Last 1 Encounters: 09/11/17 176.5 kg (389 lb 3.2 oz) 11/28/16 179.443 kg (395 lb 10 oz) Body mass index is 73.54 kg/m. Weight regional climate change analyst the past year: 6 lb wt loss [...] weight loss; anticipate excellent compliance in the [facility] surgery program. Currently eating energy-dense/nurient-poor [...] of protein a day - add light Jordanian yogurt to breakfast; include lean protein with PM snack/lunch 3. D/c carbonated beverages (e.g., diet soda); replace with water, Crystal Light, diet deca f tea, or other calorie-free still beverage Contact information was provided; call or send [employer] message to dietitian with any questi ons. [...] [place] | | | | | | [address] | | | | | | [phone] | | | | | | | | +--------+---------+ + + + documented as of this encounter Visit Diagnoses + + | Diagnosis | + + | Morbid obesity with BMI of 70 and over, adult (HCC) - Primary | + + documented in this encounter
--- OUTSIDE RECORDS SUMMARY | ~2019-12-19 | XMS | Encounter Summary ---
Demographics + + + | Address | [address] | | | [place] [address] | + + + | Home Phone [...] | Organization | [facility] | | | and [...] + +------+ + | Care Director Of Business Operations Name | Role | Phone | [...] + + | 10/26/ | Virtual | [facility] | Sulema Altamirano | Chronic diastolic | | 2019 | Office | CARDIOLOGY [place] | [address] | heart failure (HCC) | | | Visit | [address] | [address] | (Primary Dx); | | | | [address] | [place] [address] | History of sinus | | | | [place] | [phone] | tachycardia; History | | | | [address] | | of stroke; HTN, | | | | [phone] | | goal below 130/80; | | [...] minutes of medical discussion via telephone visit (27115) Patient has not been seen in office [...] dysfunction with previous dysfunctional RV treated at [facility] with diuresis and hospitalization for one month., sleep apnea treated with BiPAP, t ype II diabetes now resolved with weight loss, hypothyroidism, previous morbid obesity with alveolar hypoventilation, 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 Fu, Her current and previous testing [...] to lose weight. She followed up with pit supervisor at [facility], Dr. Franks, who reported that her diabetes [...] weight loss. Hypothyroidism,followed by Dr. Kat alva, pit supervisor at [facility]) . Denies excessive thirst or hunger. Psychiatric/Behavioral: [...] knee pain and hernia pain Lives in [facility] ith her mother who smokes. . Sister is health care administrator. Grandchildren ages 4 and 7 live with he r daughter and son-in-law. Disabled , on disability .01/24/2019: working with [employer] to get her own place. Outpatient Medications Prior to Visit Medication Sig Dispense Refill ALPRAZolam (XANAX) 0.5 mg tablet Take 0.5-1 mg by mouth 3 times daily as needed. ascorbic acid (VITAMIN C) 500 MG tablet Take 1,000 mg by mouth Daily. atenolol (TENORMIN) 50 mg tablet Take 1 tablet by mouth nightly. 30 tablet 11 Mvoucsu-Robupnoig-Cbskvan D (CITRACAL CALCIUM+D PO) Take 4 tablets [...] mL every day by injection route. rizatriptan (MAXALT-BOATING SAFETY OFFICER) 5 mg disintegrating tablet Take 5 mg by mouth as needed for Mi graine. May repeat in 2 hours if needed spironolactone (ALDACTONE) 50 mg tablet Take 50 mg by mouth Daily. thyroid (MATERIAL MAN THYROID) 30 mg tablet MATERIAL MAN Thyroid 30 mg tablet TAKE ONE TABLET [...] Ascending aorta not well seen Echo: 02/16/2017: ([facility]): normal EF of 60-65% , accurate assessment of diastolic function i mpeded by poor tissue doppler, RV normal in size and function, with no significant valvular disease, and aortic root, ascending aorta , and aortic arch normal Echo: 01/02/2016 ([facility]): TDS, cardiac chamber dimensions grossly NML, LVEF >70%, rodriguez tolic function normal for patient. Unable to assess segmental wall motion. RV grossly norm al. Aortic valve sclerotic, no As/AI. Mitral and tricuspid valves grossly normal. Trace T R. No pericardial effusion VASCULAR TESTING AND PROCEDURES Left lower extremity DVT, presumed PE: 10/2015 [facility]. treated with heparin drip and Coumadin 10 in hospital, with Coumadin 6 months as outpatient, ASA 81 mg continued Venous US: right leg, 04/28/2016: No evidence of DVT. EKG EKG 10/27: ([facility]) Normal sinus rhythm. Normal EKG. Rate 93 bpm, OK 172 ms, QRS 90 ms, QTC 465 ms personally reviewed by me in the office today) EK02/05: Sinus tachycardia, otherwise normal. Rate 160 bpm, OK 174 ms, QRS 74 ms, QTC 451 ms (personally reviewed by me in the office today and no significant change seen fro m EKG done in October 2016 except for faster heart rate) EK04/26/2018: Normal sinus rhythm, rate 74 bpm, OK 182 ms, QRS 96 ms, QTC 472 ms, tracin g personally reviewed by me, and compared to previous EKG, heart rate is now better controll ed, otherwise similar morphology EK04/28/2019: Normal sinus rhythm, right axis. Rate 74 bpm, OK 170 ms, QRS 88 ms, QTC 45 [...] elevated, requiring increased calcium dosing from her pit supervisor. She is being closely monitored with her [...] she needs to be retested for sleep bessemer bottom maker ea given her large weight loss, and [...] continuity of care purp ose Maryse MARKS [facility] Cardiology 10/28/2019 ERdomerritt han in this encounter Plan of Treatment +--------+---------+ + + + | Date | Type | Specialty | Care Team | Description | +--------+---------+ + + + | 03/05/ | Office | Cardiology | Sulema Altamirano | | 2019 | Visit | | [address] | | | | | | [address] | | | | | | [place] [address] | | | | | | [phone] | | | | | | | [...]
--- OUTSIDE RECORDS SUMMARY | ~2019-12-19 | XMS | Encounter Summary ---
Demographics + + + | Address | [address] | | | [place] [address] | + + + | Home Phone [...] [place], [place] | | | | | [address] | | + + + + + | Ellie Vang | ECON | Unknown | | + + + + + Care Team Providers + +------+ + | Care Product Controller Name | Role | Phone | [...] | Office | Trauma Emergency | Danny Rodriguez, | Incarcerated | | 2015 | Visit | General Surgery at | MD [address] | incisional hernia | | | | [facility] [address] | (Primary Dx) | | | | [address] | [place], [place] | | | | | Physicians [place], | [address] | | | | | 2nd Floor | [phone] | | | | | [place], [place] | | | | | | [address] | | | | | | [phone] | | | +--------+---------+ + + + [...] Andie Brian Incisional hernia repair 02/2015 [facility]/ Dr. Cantu PHYSICAL EXAMINATION: BP 133/63 [...] sooner if any questions or concerns. DANNY B MAKSIM, MD TRAUMA EMERGENCY GENERAL SURGERY AT [facility] [address] [facility] Mailcode: [address] [place] [address] documented in this encounter Plan of Treatment +--------+---------+ + + + | Date | Type | Specialty | Care Team | Description | +--------+---------+ + + + | 03/15/ | Office | Cardiology | Randell Franks, | | | 2019 | Visit | | [address] | | | | | | [place], [place] | | | | | | [address] | | | | | | [phone] | | | | | | | | +--------+---------+ + + + documented as of this encounter Visit Diagnoses + + | Diagnosis | + + | Incarcerated incisional hernia - Primary Incisional hernia with obstruction | + + documented in this encounter"
--- OUTSIDE RECORDS SUMMARY | ~2019-12-19 | XMS | Encounter Summary ---
Demographics + + + | Address | [address] | | | [place] [address] | + + + | Home Phone [...] [place], [place] | | | | | [address] | | + + + + + | Ellie Vang | ECON | Unknown | | + + + + + Care Team Providers + +------+ + | Care Machinist Set Up Name | Role | Phone | + [...] Floor | | | | | | [facility] and | [place], [place] | | | | | | Healing, | [address] | | | | | | Building [address] | Phone: | | | | | | [place], [place] | [phone] | | | | | | [address] | Fax: | | | | | | Phone: | [phone] | | | | | | [phone] | | | | | | | Fax: | | | | | | | [phone] | | +--------+--------+ + + + + [...] | | | | Health and | [place], [place] | | | | | | Healing, | [address] | | | | | | Building [address] | Phone: | | | | | | [place], [place] | [phone] | | | | | | [address] | Fax: | | | | | | Phone: | [phone] | | | | | | [phone] | | | | | | | Fax: | | | | | | | [phone] | | +--------+--------+ + + + + Encounter Details +--------+ + + + + | Date | Type | Department | Care Team | Description | +--------+ + + + + | 10/07/ | Hospital | Radiology/Imaging | | | | 2012 | Encounter | Lab at [facility] [address] | [address] | | [address] Mailcode: | | | | | | [facility] | | | [facility] and Healing, | | | | | | Building [address], 3rd | | | | | | Floor [place], [place] | | | | | | [address] | | | | | | [phone] | | | +--------+ + + + [...] [address] | | | | | | [place], [place] | | | | | | [address] | | | | | | [phone] | | | | | | | [...] | | + +---------+ + + | [facility] DEPARTMENT OF | | [...] + + | NKECHI VALDEZJUSTINE | [address] [facility] | [place] [address] | | | OF CARE TESTS | | | | + + + + + documented in this encounter Visit Diagnoses + + | Diagnosis | + + | Hernia Hernia of unspecified site of abdominal cavity without mention of obstruction | | or gangrene | + + documented in this encounter"
--- OUTSIDE RECORDS SUMMARY | ~2019-12-19 | XMS | Encounter Summary ---
Demographics + + + | Address | [address] | | | [place] [address] | + + + | Home Phone [...] + | Katalina Padilla | ECON | [address] | | | | | [place], [place] | | | | | [address] | | + + + + + | Ellie Vang | ECON | Unknown | | + + + + + Care Team Providers + +------+ + | Care Two Way Radio Installer Name | Role | Phone | [...] | | 2019 | | Preventive at [facility] | MD [address] | (PHENTERMINE 37.5 mg | | | | [address] | [place], [place] | oral tablet); | | | | Mailcode: [place] | [address] | Refill Request | | | | [facility] | [phone] | | | | | and [address], | | | | | | [address] | | | | | | [place], [place] | | | | | | [address] | | | | | | [phone] | | | +--------+--------+ + + + [...] [address] | | | | | | [place], [place] | | | | | | [address] | | | | | | [phone] | | | | | | | | +--------+---------+ + + + documented as of this encounter Visit Diagnoses Not on filedocumented in this encounter"
--- OUTSIDE RECORDS SUMMARY | ~2019-12-19 | XMS | Encounter Summary ---
Demographics + + + | Address | [address] | | | [place] [address] | + + + | Home Phone [...] [place], [place] | | | | | [address] | | + + + + + | Ellie Vang | ECON | Unknown | | + + + + + Care Team Providers + +------+ + | Care Boiler Technician Name | Role | Phone | [...] Dx) | | | | Surgery at [facility] [address] | [place], [place] | | | | | [address] | [address] | | | | | Mailcode: [facility] | [phone] | | | | | [facility] | | | | | | and Healing, | | | | | | Building 1, | | | | | | Floor [place], [place] | | | | | | [address] | | | | | | [phone] | | | +--------+---------+ + + + [...] Dr. Andie Brian Incisional hernia repair 03/01/2015 [facility]/ Dr. Cantu. Primary fascial closure and scar excision Lap gastric byp, and nilesh-en-y gastroenterostomy w/ nilesh limb 150 cm or less 8 [facility] Cholecyst[facility], laparoscopic Allergies Allergen Reactions [...] 50 mg by mouth once daily. CALCIUM CRB&JOH-P6-YZE78-GENIS ORAL Take 2 tablets by mouth two [...] Flannery | | | | | | [place], [place] | | | | | | [address] | | | | | | [phone] | | | | | | | | +--------+---------+ + + + documented as of this encounter Visit Diagnoses + + | Diagnosis | + + | Excess skin of abdomen - Primary Unspecified hypertrophic and atrophic condition of | | skin | + + documented in this encounter
--- OUTSIDE RECORDS SUMMARY | ~2019-12-19 | XMS | Encounter Summary ---
Demographics + + + | Address | [address] | | | [place] [address] | + + + | Home Phone [...] [place], [place] | | | | | [address] | | + + + + + | Ellie Vang | ECON | Unknown | | + + + + + Care Team Providers + +------+ + | Care Mirror Silverer Name | Role | Phone | + [...] [place] | | | | | | [address] | | | | | | [phone] | | | | | | | | +--------+---------+ + + + documented as of this encounter Visit Diagnoses Not on filedocumented in this encounter"
--- OUTSIDE RECORDS SUMMARY | ~2019-12-19 | XMS | Encounter Summary ---
Demographics + + + | Address | [address] | | | [place] [address] | + + + | Home Phone [...] [place], [place] | | | | | [address] | | + + + + + | Ellie Vang | ECON | Unknown | | + + + + + Care Team Providers + +------+ + | Care Machinist Apprentice Name | Role | Phone | [...] Davis | | | | | [facility] | [facility] | | | | | [facility] Admitting | [place] [address] | | | | | Desk Located on the | [phone] | | | | | 9th floor | | | | | | [place], [place] | | | | | | [address] | | | +--------+ + + + [...] Flannery | | | | | | [place], [place] | | | | | | [address] | | | | | | [phone] | | | | | | | [...]
--- OUTSIDE RECORDS SUMMARY | ~2019-12-19 | XMS | Clinical Summary ---
Demographics + + + | Address | [address] | | | [place] [address] | + + + | Home Phone [...] Author + + + | Author | [facility] | + + + | Organization | [facility] | + + + [...] [place], [place] | | | | | [address] | | + + + + + | Ellie Vang | ECON | Unknown | | + + + + + Care Team Providers + +------+ + | Care Assembler Installer Structures Name | Role | Phone | + +------+ + | Kenyatta Cardenas MD | PCP | | + +------+ + Source Comments [facility] is fully live on both [facility] and [facility] InPatient.[facility] Allergies + + + + + + [...] 0 | | | Activ | | CRB&VXK-A0-LTX12-GEN | mouth two times | | | [...] | + + + +---+------+---+-------+ | thyroid (BINDER ROLLER | Take 30 mg by mouth | [...] | | | | | [place], [place] | | | | | | [address] | | | | | | [phone] | | | | | | | [...] - | | | | | | /[address] | | [id number]: Qty: 1 on | | | | | | 525 | | 03/01/2018 by Ion Pandey | | | | | | | | MD V[facility] at [facility] | | | | | [...] - | | | | | | /[id number] | | [id number]: Qty: 1 on | | | | | | 173 | | 03/01/2018 by Ion Pandey | | | | | | | | MD Vinicius at [facility] | | | | | [...] | | | + +--------+ +--------+-------+---------+--------+ | PROGRAMMABLE LOGIC CONTROLLER ASSEMBLER MEDICAID | PROGRAMMABLE LOGIC CONTROLLER ASSEMBLER | [id number] | | | | Medica [...] mireya | | | 3 (Home) | [address] | + +--------+ +--------+ + + Advance [...]
--- OUTSIDE RECORDS SUMMARY | ~2019-12-19 | XMS | Encounter Summary ---
Demographics + + + | Address | [address] | | | [place] [address] | + + + | Home Phone [...] + | Katalina Padilla | ECON | [address] | | | | | [place], [place] | | | | | [address] | | + + + + + | Ellie Vang | ECON | Unknown | | + + + + + Care Team Providers + +------+ + | Care Bath Steward Name | Role | Phone | [...] | | 2 diabetes | [place], | [place], [place] | | | | | mellitus | [place] [address] | [address] | | | | | without | Phone: | Phone: | | | | | complication | [phone] | [phone] | | | | | (HCC) | Fax: | Fax: | | | | | Procedures | [phone] | [phone] | | | | | [facility] EST | | | | | | [...] | unspecified type | | | | Mittie at | [place], [place] | (Primary Dx); Severe | | | | [place] [address] [address] | [address] | Morbid obesity | | | | [address] [facility] | [phone] | (HCC), BMI 88 | | | | [facility] | | | | | | [place], [place] | | | | | | [address] | | | | | | [phone] | | | +--------+---------+ + + + [...] due to Bromocriptine Type 2 diabetes mellitus (HCC) 04/14/2013 Past Surgical History Procedure Laterality Date Tonsillectomy and adenoidectomy Appendectomy, open 2010 Umbilical hernia repair 2010 Treatment of ankle fracture with screws remaining Incision and drainage of wound abscess x2 midline transverse wound s/p open appendectomy 2010 Ventral hernia repair 10/2012 Dr. Andie Brian Incisional hernia repair 03/01/2015 [facility]/ Dr. Cantu. Primary fascial closure and scar excision Lap gastric byp, and nilesh-en-y gastroenterostomy w/ nilesh limb 150 cm or less 8 [facility] Cholecyst[facility], laparoscopic Current Outpatient Medications Medication [...] by mouth once daily at bedtime. CALCIUM CRB&ASA-N0-ILC67-GENIS ORAL Take 2 tablets by mouth two [...] capsule by mouth every lucía n days. (Patient taking differently: Take 50,000 Units by [...] 50 mg by mouth once daily. thyroid (RATCHET SETTER THYROID) 30 mg oral tablet tab Take [...] 9 CREATININE PLASMA (LAB) 0.82 EGFR - [place] CITIZ[place] >60 EGFR NON -[place] CITIZEN >60 GLUCOSE, PLASMA (LAB) 94 CALCIUM, PLASMA [...] is currently being managed well by her Software Test Manager with diuretics and main tenance of [...] management of her heart failure by her Software Test Manager 3) Continue management of her ventral [...] Flannery | | | | | | [place], [place] | | | | | | [address] | | | | | | [phone] | | | | | | | | +--------+---------+ + + + documented as of this encounter Procedures + +--------+ + + + | Procedure Name | Priori | Date/Time | Associated Diagnosis | Comments | | | ty | | | | + +--------+ + + + | [facility] COLLECTION VENOUS | Routin | 09/15/2019 | [...] [facility] | [address] | [place] [address] | | | SERVICES, CORE | PARK [...] [facility] | [address] | [place] [address] | | | SERVICES, [facility] | [address] [...] 5.2Comment: Hgb A1C | <5.7 % | [facility] | | | A1C | Interpretive | [...] | [facility] | | considered for monitoring fci glycemic control in patients with: | LABORATORY [...] + + + + + | [facility] | [address] | [place] [address] | | | SERVICES, SPECIAL | PARK [...]
--- OUTSIDE RECORDS SUMMARY | ~2019-12-19 | XMS | Encounter Summary ---
Demographics + + + | Address | [address] | | | [place] [address] | + + + | Home Phone [...] [place], [place] | | | | | [address] | | + + + + + | Ellie Vang | ECON | Unknown | | + + + + + Care Team Providers + +------+ + | Care Head Of Housekeeping Name | Role | Phone | + [...] on | Center at [facility] [address] | [employer] [address] | | | | | [address] | [facility] [address] | | | | | Mailcode: Center | [place], [place] | | | | | [facility] and | [address] | | | | | [facility] 2 | [phone] | | | | | [place], [place] | | | | | | [address] | | | | | | [phone] | | | +--------+ + + + [...] [place] | | | | | | [address] | | | | | | [phone] | | | | | | | | +--------+---------+ + + + documented as of this encounter Visit Diagnoses Not on filedocumented in this encounter"
--- OUTSIDE RECORDS SUMMARY | ~2019-12-19 | XMS | Encounter Summary ---
Demographics + + + | Address | [address] | | | [place] [address] | + + + | Home Phone [...] [place], [place] | | | | | [address] | | + + + + + | Ellie Vang | ECON | Unknown | | + + + + + Care Team Providers + +------+ + | Care Benefits Consulting Analyst Name | Role | Phone | [...] Flannery | | | | | | [place], [place] | | | | | | [address] | | | | | | [phone] | | | | | | | | +--------+---------+ + + + documented as of this encounter Visit Diagnoses Not on filedocumented in this encounter"
--- OUTSIDE RECORDS SUMMARY | ~2019-12-19 | XMS | Encounter Summary ---
Demographics + + + | Address | [address] | | | [place] [address] | + + + | Home Phone [...] [place], [place] | | | | | [address] | | + + + + + | Ellie Vang | ECON | Unknown | | + + + + + Care Team Providers + +------+ + | Care Glass Inspector Name | Role | Phone | [...] | 2016 | on | Center at [place] [id number] | | | | | | Jacy Flannery | | | | | | Mailcode: [place] | | | | | | for Health and | | | | | | [facility] 2 | | | | | | [place], [place] | | | | | | [address] | | | | | | [phone] | | | +--------+ + + + [...] Flannery | | | | | | [place], [place] | | | | | | [address] | | | | | | [phone] | | | | | | | | +--------+---------+ + + + documented as of this encounter Visit Diagnoses Not on filedocumented in this encounter"
--- OUTSIDE RECORDS SUMMARY | ~2019-12-19 | XMS | Encounter Summary ---
Demographics + + + | Address | [address] | | | [place] [address] | + + + | Home Phone [...] [place], [place] | | | | | [address] | | + + + + + | Ellie Vang | ECON | Unknown | | + + + + + Care Team Providers + +------+ + | Care Nuclear Engineering Technician Name | Role | Phone [...] | | 2020 | | Center at [facility] [address] | MD Jorje [address] | Review | | | | Jacy Flannery | [facility] | | | | | Mailcode: Center | [place], [place] | | | | | [facility] and | [address] | | | | | [place] [address] | [phone] | | | | | [place], [place] | | | | | | [address] | | | | | | [phone] | | | +--------+ + + + [...] Flannery | | | | | | [place] | | | | | | [address] | | | | | | [phone] | | | | | | | | +--------+---------+ + + + documented as of this encounter Visit Diagnoses Not on filedocumented in this encounter"
--- OUTSIDE RECORDS SUMMARY | ~2019-12-19 | XMS | Encounter Summary ---
Demographics + + + | Address | [address] | | | [place] [address] | + + + | Home Phone [...] | Organization | [facility] | | | and Jeffana [...] Team Providers + +------+ + | Care Storekeeper Helper Name | Role | Phone | [...] | specified | MD [address] | REPORT WRITER [address] | | | | | diseases of | [address] | [place], [place] | | | | | liver | [place], | [address] | | | | | Procedures | [place] | [place] | | | | | office visit | [address] | [address] Phone: | | | | | | Phone: | [phone] | | | | | | [phone] | Fax: | | | | | | Fax: | [phone] | | | | | | [phone] | | +--------+--------+ + + + + [...] | [address] [place] | [place], [place] [address] | Dx); History of | | | | [address] [place], [place] | [place] | Frandy-en-Y gastric | | | | [address] | [address] | bypass; Itching; | | | | [phone] | | Diarrhea, | | | | [...] en Y gastric bypass done 03/03/2018 at [facility]. She reports that approximately [...] well. She is scheduled to see her [facility] surgeons within the next 2 weeks. [...] right ventricular diastolic dysfunction (HCC) 10/26/2015 Overview: [facility] Last Assessment & Plan: [...] o besity Pickwickian syndrome Recent admission to [facility] for 100lb weight gain- DC on [...] Diabetes mellitus type 2 without retinopathy ([facility] 04/14/2013 Diabetes mellitus with insulin therapy ([facility]) 12/27/2014 DM (diabetes mellitus) ([facility]) 05/09/2016 Overview: A1c 5.29 Aug [...] with morbid obesity, she is enrolled in [facility] bariatric program. She has lost approximately [...] obesity (HCC) 06/16/2013 Last Assessment & Plan: [facility] Bariatric Program, has lost 50lbs. STEFANO (iron deficiency anemia) 02/03/2019 Overview: Presumed due to menses. Venofer 200 qd x 30 October 2015 [facility] Last Assessment & P [...] She is to follow-up with surgeons at [facility] as planned. Patient is [...] F | | | | | | [place] [address] | | | | | | [phone] | | | | | | | [...]
--- OUTSIDE RECORDS SUMMARY | ~2019-12-19 | XMS | Encounter Summary ---
Demographics + + + | Address | [address] | | | [place] [address] | + + + | Home Phone [...] + | Katalina Padilla | ECON | [address] | | | | | [place], [place] | | | | | [address] | | + + + + + | Ellie Vang | ECON | Unknown | | + + + + + Care Team Providers + +------+ + | Care Pmp Certified Project Manager Name | Role | Phone | + +------+ + | Fadi Goodrich DO | PCP | | + +------+ + Encounter Details +--------+ + + + + | Date | Type | Department | Care Team | Description | +--------+ + + + + | 10/27/ | Telephone | [facility] | Leslie Mistry, | | | 2017 | | [address] | PhD [address] [facility] | | | | | Mailcode: CH15P | [place] | | | | | [facility] | [place], [place] | | | | | and [place], | [address] | | | | | | [phone] | | | | | Floor [place], [place] | | | | | | [address] | | | | | | [phone] | | | +--------+ + + + [...] | | | | | | [place], [place] | | | | | | [address] | | | | | | [phone] | | | | | | | | +--------+---------+ + + + documented as of this encounter Visit Diagnoses Not on filedocumented in this encounter"
--- OUTSIDE RECORDS SUMMARY | ~2019-12-19 | XMS | Encounter Summary ---
Demographics + + + | Address | [address] | | | [place] [address] | + + + | Home Phone [...] [place], [place] | | | | | [address] | | + + + + + | Ellie Vang | ECON | Unknown | | + + + + + Care Team Providers + +------+ + | Care Sustainable Development Policy Analyst Name | Role | Phone | + +------+ + PCP | Unavailable | + +------+ + Encounter Details +--------+ + + + + | Date | Type | Department | Care Team | Description | +--------+ + + + + | 05/13/ | Results | | Other, Faculty | | | 1992 | Only | | [phone] | | +--------+ + + + + [...] Flannery | | | | | | [place], [place] | | | | | | [address] | | | | | | [phone] | | | | | | | [...] 1: BRIDGETT, | | | | | CONTRAST | MORELIA-Radiologist 2: | | | | | | RAISA MONTIEL, | | | | | | DYLAN BHAKTA | | | | | | | | | | | | | | | | | | | | | | | | [phone] SCAN OF | | | | | [...] Performed At | + + + | [facility] | | + + + + [...] 1: BR[place]GETT, | | | | | CONTRAST | [...]
--- OUTSIDE RECORDS SUMMARY | ~2019-12-19 | XMS | Encounter Summary ---
Demographics + + + | Address | [address] | | | [place] [address] | + + + | Home Phone [...] [place], [place] | | | | | [address] | | + + + + + | Ellie Vang | ECON | Unknown | | + + + + + Care Team Providers + +------+ + | Care Machine Helper Name | Role | Phone | [...] | | | Unspecified | Kathy Feliciano RISK ADVISOR | MD Randell | | | | | essential | [address] [address] | [address] | | | | | hypertension | [address], | Ave | | | | | Type II or | [address] | [place], [place] | | | | | unspecified | [place], [place] | [address] | | | | | type | [address] | Phone: | | | | | diabetes | Phone: | [phone] | | | | | mellitus | [phone] | Fax: | | | | | without | Fax: | [phone] | | | | | mention of | [phone] | | | | | | complication [...] | 2015 | Visit | Preventive at [facility] | MD [address] | mellitus (HCC) | | | | [address] | [place], [place] | (Primary Dx) | | | | Mailcode: [facility] | [address] | | | | | [facility] | [phone] | | | | | and Healing, | | | | | | Building [address] | | | | | | [place], [place] | | | | | | [address] | | | | | | [phone] | | | +--------+---------+ + + + [...] | 2020 | Visit | | MD [address] | | | | | | [place], [place] | | | | | | [address] | | | | | | [phone] | | | | | | | [...] [facility] | [address] | [place] [address] | | | SERVICES, [facility] | [address] [...] 5.3Comment: Hbg A1c | <5.7 % | [facility] | | | A1C | Interpretive [...] | + + + + + | [facility] | [address] | [place] [address] | | | SERVICES, SPECIAL | [address]ENCE [...]
--- OUTSIDE RECORDS SUMMARY | ~2019-12-19 | XMS | Encounter Summary ---
Demographics + + + | Address | [address] | | | [place] [address] | + + + | Home Phone [...] + | Katalina Padilla | ECON | [address] | | | | | [place], [place] | | | | | [address] | | + + + + + | Ellie Vang | ECON | Unknown | | + + + + + Care Team Providers + +------+ + | Care Meat And Poultry Inspector Name | Role | Phone | [...] Care Coordination | | 2019 | | [place] at [facility] [address] | MD Jorje [address] | (follow up) | | | | Jacy Flannery | [address] | | | | | Mailcode: [place] | [place], [place] | | | | | [facility] and | [address] | | | | | [place] [address] | [phone] | | | | | [place], [place] | | | | | | [address] | | | | | | [phone] | | | +--------+ + + + [...] Flannery | | | | | | [place], [place] | | | | | | [address] | | | | | | [phone] | | | | | | | | +--------+---------+ + + + documented as of this encounter Visit Diagnoses Not on filedocumented in this encounter"
--- OUTSIDE RECORDS SUMMARY | ~2019-12-19 | XMS | Encounter Summary ---
Demographics + + + | Address | [address] | | | [place] [address] | + + + | Home Phone [...] [place], [place] | | | | | [address] | | + + + + + | Ellie Vang | ECON | Unknown | | + + + + + Care Team Providers + +------+ + | Care Manager General Name | Role | Phone | + [...] [facility] [address] | SOAKING PITS SUPERVISOR [address] | | | | | [address] | [facility] 350 | | | | | Mailcode: Center | [place], [place] | | | | | [facility] and | [address] | | | | | [facility] 2 | [phone] | | | | | [place], [place] | | | | | | [address] | | | | | | [phone] | | | +--------+ + + + [...] | | | | | | [place], [place] | | | | | | [address] | | | | | | [phone] | | | | | | | | +--------+---------+ + + + documented as of this encounter Visit Diagnoses Not on filedocumented in this encounter"
--- OUTSIDE RECORDS SUMMARY | ~2019-12-19 | XMS | Encounter Summary ---
Demographics + + + | Address | [address] | | | [place] [address] | + + + | Home Phone [...] [place], [place] | | | | | [address] | | + + + + + | Ellie Vang | ECON | Unknown | | + + + + + Care Team Providers + +------+ + | Care Accounts Officer Name | Role | Phone | [...] + + | 11/05/ | Hospital | [facility] 14C [address] | Joseph An | | | 2016 - | Encounter | [address] | MD Birgit [address] [facility] | | | | | 14C [facility] | [address] | | | 11/20/ | | [place], [place] | [place], [place] | | | 2016 | | [address] | [address] | | | | | [phone] | [phone] | | | | | | | | | | | | Ana, | | | | | | MD Briana [address] | | | | | | [address] | | | | | | Rd [place], [place] | | | | | | [address] | | | | | | [phone] | | | | | | | | | | | | Carmelina Tucker, | | | | | | JEFFREY-Aimee [address] | | | | | | [address] | | | | | | [place], [place] | | | | | | [address] | | | | | | [phone] | | | | | | | | | | | | Charley Lacey MD | | | | | | Jose Scott MD | | | | | | [address] | | | | | | [address] | | | | | | [place], [place] | | | | | | [address] | | | | | | [phone] | | | | | | | | | | | | Mannie Larkin MD | | | | | | [address] | | | | | | [address] [place], | | | | | | [place] [address] | | | | | | [phone] | | | | | | | | | | | | Tyrone Adrian MD | | | | | | [address] | | | | | | [address] [place], | | | | | | [place] [address] | | | | | | [phone] | | | | | | | [...] did want her to follow up with investigative assistant in [place]. She should continue working towards bariatric surgery wh ich will ultimately put less stress on her heart. -Continue torsemide 80mg BID -Increase potassium supplementation to KCl 40mg BID -Daily weights and strict 2g Na 2L fluid restricted diet -Close followup with Dr. Goodrich (appt on 11/25 at 11AM) -Needs followup with cardiology in [place] #Left lower extremity DVT #Presumed PE Asymmetric left lower extremity pain and swelling was suspicious for DVT and confirmed with duplex ultrasound. 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 Started anticoagulation bridge with heparin [...] mouth once daily. , Historical Med CALCIUM [id number]-GENIS ORAL Take 2 tablets by mouth two [...] [facility] [phone] Cardiology Additional Instructions/Orders: Diet Diabetic (Consistent [...] Good Yosef Segovia MD PGY-1 Internal Medicine [id number] INPATIENT FACULTY PROGRESS NOTE - GM 1 Author; Tyrone Adrian MD Attending Physician: Tyrone Adrian MD Hospital Day: 15 PCP: Fadi Goodrich DO PCP PCP Patient's Name: Elzbieat Cristina Today's Date: 11/21/2015 I personally interviewed [...] (HCC) 15) Candidal intertrigo Tyrone Adrian MD [facility] 14C chlorobutadiene scrubber operator Division of Hospital Medicine Department of Medicine [address] [place] [address] [facility] DEPARTMENT: Hosp- [id number] Place of Service: Date of Service: 11/21/2015 CSN: [id number] Modifiers:GC Resident Involved: Yes Suggested CPT: 50768 Discharge Management < 30 minute documented in this encou nter Medications at Time of Discharge + + + +---------+--------+ + | Medication | Sig | Dispensed | Refills | Start | End Date | | | | | | Date | | + + + +---------+--------+ + | CALCIUM | Take 2 tablets by | | 0 | | | | [id number]-[id number]-GEN | mouth two times | | | [...] (HCC) 15) Candidal intertrigo Tyrone Adrian MD [facility] 14C chlorobutadiene scrubber operator Division of Hospital Medicine Department of Medicine [facility] [address] [place] [address] [facility] DEPARTMENT: Hosp- [id number] Place of Service: - Date of Service: 11/20/2015 CSN: [id number] Modifiers:CHANDLER Resident Involved: Yes Suggested CPT: 44339 Subsequent Visit Exp Prob Foc/Mod Complexity 25 min olleen Diamond - 016 6:49 AM PDT PHYSICIAN AWNING HANGER HELPER STUDENT PROGRESS NOTE FOR EDUCATIONAL PURPOSES ONLY INPATIENT PROGRESS NOTE PATIENT INFORMATION Patient Name: Elzbieta Cristina Date of : 1975 Date of Admission: 11/06/2015 PCP: Fadi Goodrich DO Room/Bed: [facility] Attending Provider: Tyrone Adrian MD [...] of ovarian cysts or menses related. Contact INFORMATION TECHNOLOGY AUDIT MANAGER if TV-US i s ordered. - [...] - topiramate 200mg po bid JEFFREY Gee-S2 [facility] PA Student Feeding: <2L fluid, Diabetic diet, >2g na Analgesia: APAP, gabapentin, hydrocodone Thromboembolic prophylaxis: Heparin/warfarin Glycemic control: moderate ISS Mobility: Encourage walking and movement Discharge: Expect hospital stay another 2-3 days with PCP FU (Dr. Goodrich) on Saturday 11/25 @ 1 1 am. - Referral to General Manager In Training Code status: FULL Associated attestation - Yosef [...] PCP Yosef Segovia MD PGY-1 Internal Medicine [id number] Tyrone Adrian MD - 11/19/2015 11:51 AM [...] if the PO works) Tyrone Adrian MD [facility] 14C chlorobutadiene scrubber operator Division of Hospital Medicine Department of Medicine [facility] [place] [address] [place] [phone] [facility] DEPARTMENT: Hosp- [id number] Place of Service: [facility] Date of Service: 11/19/2015 CSN: [id number] Modifiers:GC Resident Involved: Yes Suggested CPT: 28669 Subsequent Visit Exp Prob Foc/Mod Complexity 25 min lowerbobbi Colleen - 016 6:24 AM PDT PHYSICIAN AWNING HANGER HELPER STUDENT PROGRESS NOTE FOR EDUCATIONAL PURPOSES ONLY [...] of ovarian cysts or menses related. Contact INFORMATION TECHNOLOGY AUDIT MANAGER if TV-US i s ordered. - [...] - topiramate 200mg po bid JEFFREY Gee-S2 [facility] PA Student Feeding: <2L fluid, Diabetic diet, [...] can. Yosef Segovia MD PGY-1 Internal Medicine [id number] Tyrone Adrian MD - 11/18/2015 2:01 PM [...] (HCC) 15) Candidal intertrigo Tyrone Adrian MD [facility] 14C chlorobutadiene scrubber operator Division of Hospital Medicine Department of Medicine [facility] [address] [place] [phone] [facility] DEPARTMENT: Hosp- [id number] Place of Service: Date of Service: 11/18/2015 CSN: [id number] Modifiers:GC Resident Involved: Yes Suggested CPT: 52521 Subsequent Visit Exp Prob Foc/Mod Complexity 25 [...] plan. Yosef Segovia MD PGY-1 Internal Medicine [id number] signed by Yosef Segovia at 11/18/2015 11:52 [...] (HCC) 15) Candidal intertrigo Tyrone Adrian MD [facility] 14C chlorobutadiene scrubber operator Division of Hospital Medicine Department of Medicine [facility] & [address] [place] [phone] [facility] DEPARTMENT: Hosp- [id number] Place of Service: - [id number] Date of Service: 11/17/2015 CSN: [id number] Modifiers:GC Resident Involved: Yes Suggested CPT: 97204 Subsequent Visit Exp Prob Foc/Mod Complexity 25 min lColleen goff - 016 6:40 AM PDT PHYSICIAN AWNING HANGER HELPER STUDENT PROGRESS NOTE FOR EDUCATIONAL PURPOSES ONLY [...] - topiramate 200mg po bid JEFFREY Gee-S2 [facility] PA Student Feeding: <2L fluid, Diabetic diet, [...] can Yosef Segovia MD PGY-1 Internal Medicine [id number] Tyrone Adrian MD - 11/16/2015 4:59 PM [...] (HCC) 15) Candidal intertrigo Tyrone Adrian MD [facility] 14C chlorobutadiene scrubber operator Division of Hospital Medicine Department of Medicine [facility] [address] [place] [phone] [facility] DEPARTMENT: Hosp- [id number] Place of Service: - Date of Service: 11/16/2015 CSN: [id number] Modifiers:GC Resident Involved: Yes Suggested CPT: 61766 Subsequent Visit Exp Prob Foc/Mod Complexity 25 min olleen Diamond - 016 6:43 AM PDT PHYSICIAN AWNING HANGER HELPER STUDENT PROGRESS NOTE FOR EDUCATIONAL PURPOSES ONLY INPATIENT PROGRESS NOTE PATIENT INFORMATION Patient Name: Elzbieta Cristina Date of : 1975 Date of Admission: 11/06/2015 PCP: Fadi Goodrich DO Room/Bed: [address] [place] [address] Attending Provider: Tyrone Adrian MD Encounter Information [...] - topiramate 200mg po bid JEFFREY Gee-S2 [facility] PA Student Feeding: <2L fluid, Diabetic diet, [...] assistance of Grisel Pearl. Patient lives i [facility] which is quite a distance to travel to and from [place]. We would ideally arran ge cardiac follow [...] (HCC) 15) Candidal intertrigo Tyrone Adrian MD [facility] 14C chlorobutadiene scrubber operator Division of Hospital Medicine Department of Medicine [facility] [address] [place] [address] [facility] DEPARTMENT: Hosp- [id number] Place of Service: Date of Service: 11/15/2015 CSN: [id number] Modifiers:GC Resident Involved: Yes Suggested CPT: 27422 Subsequent Visit Detailed/High complexity 35 min lColleen goff - 016 6:33 AM PDT PHYSICIAN AWNING HANGER HELPER STUDENT PROGRESS NOTE FOR EDUCATIONAL PURPOSES ONLY [...] last 8 days Intake 9571.5 ml Output 28820 ml Net since Admission -31606.5 ml -25.938 L = 57.0636 lbs Constitutional: [...] - topiramate 200mg po bid JEFFREY Gee-S2 [facility] PA Student Feeding: <2L fluid, Diabetic diet, [...] can Yosef Segovia MD PGY-1 Internal Medicine [id number] Tyrone Adrian MD - 11/14/2015 4:16 PM [...] (HCC) 15) Candidal intertrigo Tyrone Adrian MD [facility] 14C chlorobutadiene scrubber operator Division of Hospital Medicine Department of Medicine [facility] [address] [place] [address] [facility] DEPARTMENT: Hosp- [id number] Place of Service: - Date of Service: 11/14/2015 CSN: [id number] Modifiers:CHANDLER Resident Involved: Yes Suggested CPT: 81610 Subsequent Visit Exp Prob Foc/Mod Complexity 25 min olleen Diamond - 016 6:42 AM PDT PHYSICIAN AWNING HANGER HELPER STUDENT PROGRESS NOTE FOR EDUCATIONAL PURPOSES ONLY INPATIENT PROGRESS NOTE PATIENT INFORMATION Patient Name: Elzbieta Cristina Date of : 1975 Date of Admission: 11/06/2015 PCP: Fadi Goodrich DO Room/Bed: [facility] Attending Provider: Tyrone Adrian MD [...] - topiramate 200mg po bid JEFFREY Gee-S2 [facility] PA Student Feeding: <2L fluid, Diabetic diet, [...] outpatient Yosef Segovia MD PGY-1 Internal Medicine [id number] Tyrone Adrian MD - 11/13/2015 4:06 PM [...] (HCC) 15) Candidal intertrigo Tyrone Adrian MD [facility] 14C chlorobutadiene scrubber operator Division of Hospital Medicine Department of Medicine [facility] [address] [place] [phone] [facility] DEPARTMENT: Hosp- [id number] Place of Service: Date of Service: 11/13/2015 CSN: [id number] Modifiers:GC Resident Involved: Yes Suggested CPT: 55302 Subsequent Visit Detailed/High complexity 35 min lshell Colleen - 016 6:36 AM PDT PHYSICIAN AWNING HANGER HELPER STUDENT PROGRESS NOTE FOR EDUCATIONAL PURPOSES ONLY [...] - topiramate 200mg po bid JEFFREY Gee-S2 [facility] PA Student Feeding: <2L fluid, Diabetic diet, [...] VTE. Yosef Segovia MD PGY-1 Internal Medicine [id number] Tyrone Adrian MD - 11/12/2015 1:59 PM [...] 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, Jordy STAFF ASSISTANT, at this point not definitive Plan: continue [...] ongoing 12) Candidal intertrigo Tyrone Adrian MD [facility] 14C chlorobutadiene scrubber operator Division of Hospital Medicine Department of Medicine [facility] [address] [place] [address] [facility] DEPARTMENT: Hosp- [id number] Place of Service: - Date of Service: 11/12/2015 CSN: [id number] Modifiers:GC Resident Involved: Yes Suggested CPT: 23718 Subsequent Visit Detailed/High complexity 35 min lColleen goff - 016 6:31 AM PDT PHYSICIAN AWNING HANGER HELPER STUDENT PROGRESS NOTE FOR EDUCATIONAL PURPOSES ONLY [...] - topiramate 200mg po bid JEFFREY Gee-S2 [facility] PA Student Feeding: <2L fluid, Diabetic diet, [...] disease. Yosef Segovia MD PGY-1 Internal Medicine [id number] Rucker MD - 11/11/2015 9:19 PM PDTGENERAL [...] diuresis then RHC Mannie Larkin MD Clinical Assembly Machine Tender, Internal Medicine Pager [phone] ERColleen Diamond - 10/25 6:40 AM PDT PHYSICIAN AWNING HANGER HELPER STUDENT PROGRESS NOTE FOR EDUCATIONAL PURPOSES ONLY [...] - topiramate 200mg po bid JEFFREY Gee-S2 [facility] PA Student Feeding: <2L fluid, Diabetic diet, [...] pain Yosef Segovia MD PGY-1 Internal Medicine [id number] Maria Eugenia Leiva RCP - 11/11/2015 6:39 [...] another 5-7 days Mannie Larkin MD Clinical Assembly Machine Tender, Internal Medicine Pager [phone] Yosef Fang - 7:24 AM PDT General [...] plan. 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 In terms of AMARA - does not tolerate CPAP historically. Likely CPAP will be ve ry important for her going forward. Will try overnight oximetry here to assess severity. Discharge planning:Anticipate several days in house. I spent >35 min of which >50% was spent in counseling and coordination of care. Briana Perez MD [facility] Division of Hospital Medicine Grisel Mcghee NP [...] Maker Primary Surrogate Decision Maker Katalina Padilla [facility] [phone] Advanced Directives Existence of Advanced Directive Reviewed: No- Has Interest (11/09/15 1022) Advanced Directives Reviewed Comments: I gave a copy of advance directives (11/09/15 1022) KRISHNA Huertas NP [facility] 14C [address] [facility] [address] [place] [phone] Colleen Tello - 6:41 AM PDT PHYSICIAN AWNING HANGER HELPER STUDENT PROGRESS NOTE FOR EDUCATIONAL PURPOSES ONLY [...] of acute blood loss and anemia of director fixed income ela dz and thalassemia is less likely. [...] AM Yosef Segovia MD PGY-1 Internal Medicine [id number] Briana Perez MD - 11/08/2015 2:01 PM [...] and coordination of care. Briana Perez MD [facility] Division of Hospital Medicine olleen Diamond - 11/08/2015 6:26 AM PDT PHYSICIAN AWNING HANGER HELPER STUDENT PROGRESS NOTE FOR EDUCATIONAL PURPOSES ONLY [...] 2-3 L/day. Due to her history of AAMRA (not on CPAP) will monitor pulse O2 [...] po bid (topamax, nerve pain) JEFFREY Gee-S2 [facility] PA Student Feeding: <2L fluid, Diabetic diet [...] Hair Md, MSc Internal Medicine PGY2 Pager [phone] Kwadwo Freire - 11/07/2015 2:05 PM PDTTransthoracic [...] plan. Yosef Segovia MD PGY-1 Internal Medicine [id number] lowersColleen - 016 8:43 AM PDT PHYSICIAN AWNING HANGER HELPER STUDENT PROGRESS NOTE FOR EDUCATIONAL PURPOSES ONLY [...] perfusion. - consider US to evaluate liver (DYOU-jnf-zelsupatj fatty liver dz) and look for ascites. [...] armour thyroid 30mg po bid JEFFREY Gee-S2 [facility] PA Student Feeding: <2L fluid, <2g Na [...] [place] | | | | | | [address] | | | | | | [phone] | | | | | | | [...] [facility] | [address] | [place], [place] | | | JUST[facility] [place]WN OF CARE | [address] | [address] | | | TESTS | | | [...] [facility] | [address] | [place] [address] | | | SERVICES, LYDIA | LESLY [...] [facility] | [address] | [place] [address] | | | SERVICES, CORE | [address] [...] | | | LABORATORY | | | [place] | | | SERVICES, | | | [...] the MDRD equation recommended by the | [facility] | | National Kidney Disease Education Program. [...] [facility] | [address] | [place] [address] | | | CLAIRE, LYDIA | LESLY [...] [facility] | [address] | [place], [place] | | | [facility] | [facility] | [address] | | | TESTS | | | [...] [facility] | [address] | [place], [place] | | | [place]INT OF CARE | [address] | [address] | | | TESTS | | | [...] [facility] | [address] | [place], [place] | | | [facility] CARE | [facility] | [address] | | | TESTS | | | [...] [facility] | [address] | [place], [place] | | | [facility] [place] [facility] [place] | [facility] | [address] | | | TESTS | | | [...] AM[facility] | [address] | [place], [place] | | | [place] OF [place] | [address] | [address] | | | TESTS | | | [...] | + + + + + | [facility] | [address] | [place] [address] | | | SERVICES, LYDIA | LESLY [...] | + + + + + | [facility] | [address] | [place] [address] | | | SERVICES, CORE | [address] | | | + + + + + MAGNESIUM, PLASMA (11/20/2015 6:00 AM PDT) + +-------+ + + + | Component | Value | Ref Range | Performed | Pathologist | | | | | At | Signature | + +-------+ + + + | MAGNESIUM,P | 2.5 | 1.8 - 2.5 mg/dL | [facility] | [address] | [place] [address] | | | SERVICES, CORE | [address] [...] | | | LABORATORY | | | [place] | | | SERVICES, | | | [...] | + + + + + | [facility] | [address] | [place] [address] | | | SERVICES, CORE | [address] [...] [facility] | [address] | [place], [place] | | | [facility] OF CARE | [address] | [address] | | | TESTS | | | [...] - [facility] | [address] | [place], [place] | | | CROWDER POINT OF [facility] | [address] | [address] | | | TESTS | | | [...] [facility] | [address] | [place] [address] | | | SERVICES, CORE | PARK [...] | + + + + + | [facility] | [address] | [place] [address] | | | SERVICES, CORE | LESLY [...] | | | LABORATORY | | | [place] | | | SERVICES, | | | [...] [facility] | [address] | [place] [address] | | | SERVICES, CORE | LESLY [...] AMES | [address] | [place], [place] | | | JUST[place]WN OF [place] | [address] | [address] | | | TESTS | | | [...] [facility] | [address] | [place], [place] | | | [place] POINT OF CARE | [address] | [address] | | | TESTS | | | [...] [facility] | [address] | [place], [place] | | | [facility] OF CARE | [address] | [address] | | | TESTS | | | [...] AMES | [address] | [place], [place] | | | [place]WN OF [place] | [address] | [address] | | | TESTS | | | [...] [facility] | [address] | [place] [address] | | | SERVICES, CORE | [address] | | | + + + + + MAGNESIUM, PLASMA (11/18/2015 2:25 PM PDT) + +-------+ + + + | Component | Value | Ref Range | Performed | Pathologist | | | | | At | Signature | + +-------+ + + + | MAGNESIUM,P | 2.2 | 1.8 - 2.5 mg/dL | [facility] | | | LASMA | | | [...] | + + + + + | [facility] | [address] | [place] [address] | | | SERVICES, CORE | LESLY [...] [facility] | [address] | [place], [place] | | | [facility]WN OF CARE | [address] | [address] | | | TESTS | | | [...] - [facility] | [address] | [place], [place] | | | [facility] OF CARE | [facility] | [address] | | | TESTS | | | [...] [facility] | [address] | [place] [address] | | | SERVICES, CORE | [address] [...] [facility] | [address] | [place] [address] | | | SERVICES, LYDIA | [address] [...] | + + + + + | [facility] | [address] | [place] [address] | | | SERVICES, CORE | LESLY [...] | | | LABORATORY | | | [place] | | | SERVICES, | | | [...] [facility] | [address] | [place] [address] | | | SERVICES, CORE | [address] [...] (H) | 60 - 99 mg/dL | [facility] - | | | GLUCOSE, | | [...] [facility] | [address] | [place], [place] | | | [facility] [place] OF [place] | [facility] | [address] | | | TESTS | | | [...] [facility] | [address] | [place], [place] | | | JUST[facility]WN OF CARE | [facility] | [address] | | | TESTS | | | [...] [facility] | [address] | [place], [place] | | | L[place]PE[place] POINT OF CARE | [address] | [address] | | | TESTS | | | [...] [facility] | [address] | [place], [place] | | | [facility] [place] [place] | [facility] | [address] | | | TESTS | | | [...] [facility] | [address] | [place] [address] | | | LYDIA RANGEL | LESLY [...] [facility] | [address] | [place] [address] | | | SERVICES, CORE | [address] | | | + + + + + MAGNESIUM, PLASMA (11/17/2015 5:39 AM PDT) + +-------+ + + + | Component | Value | Ref Range | Performed | Pathologist | | | | | At | Signature | + +-------+ + + + | MAGNESIUM,P | 2.3 | 1.8 - 2.5 mg/dL | [facility] | | | LASMA | | | [...] [facility] | [address] | [place] [address] | | | SERVICES, CORE | [address] [...] | | | LABORATORY | | | [place] | | | SERVICES, | | | [...] the MDRD equation recommended by the | [facility] | | National Kidney Disease Education Program. [...] [facility] | [address] | [place] [address] | | | SERVICES, CORE | LESLY [...] [facility] | [address] | [place] [address] | | | SERVICES, CORE | PARK [...] [facility] | [address] | [place] [address] | | | SERVICES, CORE | LESLY [...] (H) | 60 - 99 mg/dL | [facility] - | | | GLUCOSE, | | [...] [facility] | [address] | [place], [place] | | | [facility] [place] OF [place] | [facility] | [address] | | | TESTS | | | [...] [facility] | [address] | [place], [place] | | | JUST[facility] DAWN OF CARE | [facility] | [address] | | | TESTS | | | [...] [facility] | [address] | [place], [place] | | | JUST[facility]WN OF CARE | [address] | [address] | | | TESTS | | | [...] | + + + + + | [facility] | [address] | [place] [address] | | | SERVICES, CORE | LESLY [...] [facility] | [address] | [place], [place] | | | [facility]WN OF CARE | [address] | [address] | | | TESTS | | | [...] [facility] | [address] | [place] [address] | | | CLAIRE, LYDIA | LESLY [...] [facility] | [address] | [place] [address] | | | SERVICES, CORE | [address] [...] | | | LABORATORY | | | [place] | | | SERVICES, | | | [...] the MDRD equation recommended by the | [facility] | | National Kidney Disease Education Program. [...] [facility] | [address] | [place] [address] | | | SERVICES, CORE | PARK [...] [facility] | [address] | [place] [address] | | | SERVICES, CORE | LESLY [...] + + + | [facility] | [address] | [place], [place] | | | [place] POINT OF CARE | [address] | [address] | | | TESTS | | | [...] | + + + + + | [facility] | [address] | [place] [address] | | | LYDIA RANGEL | LESLY [...] [facility] | [address] | [place], [place] | | | [place] POINT OF CARE | [facility] | [address] | | | TESTS | | | [...] [facility] | [address] | [place] [address] | | | SERVICES, CORE | LESLY [...] (H) | 60 - 99 mg/dL | [facility] - | | | GLUCOSE, | | [...] AMES | [address] | [place], [place] | | | [facility] | [facility] | [address] | | | TESTS | | | [...] - [facility] | [address] | [place], [place] | | | [place] | [facility] | [address] | | | TESTS | | | [...] [facility] | [address] | [place] [address] | | | SERVICES, CORE | LESLY [...] [facility] | [address] | [place] [address] | | | SERVICES, CORE | PARK [...] [facility] | [address] | [place] [address] | | | SERVICES, CORE | [address] | | | + + + + + MAGNESIUM, PLASMA (11/15/2015 5:49 AM PDT) + +-------+ + + + | Component | Value | Ref Range | Performed | Pathologist | | | | | At | Signature | + +-------+ + + + | MAGNESIUM,P | 2.2 | 1.8 - 2.5 mg/dL | [facility] | | | LASMA | | | [...] | + + + + + | [facility] | [address] | [place] [address] | | | SERVICES, CORE | LESLY [...] | | | LABORATORY | | | [place] | | | SERVICES, | | | [...] [facility] | [address] | [place] [address] | | | SERVICES, CORE | LESLY [...] | | | POC | | | JUTSINE DAWN | | [...] AMES | [address] | [place], [place] | | | [place] | [address] | [address] | | | TESTS | | | [...] | + + + + + | [facility] | [address] | [place] [address] | | | SERVICES, LYDIA | LESLY [...] [facility] | [address] | [place], [place] | | | [facility] | [facility] | [address] | | | TESTS | | | [...] [facility] | [address] | [place], [place] | | | [facility] | [address] | [address] | | | TESTS | | | [...] | + + + + + | [facility] | [address] | [place] [address] | | | SERVICES, CORE | LESLY [...] [facility] | [address] | [place], [place] | | | [place] | [address] | [address] | | | TESTS | | | [...] [facility] | [address] | [place] [address] | | | SERVICES, CORE | LESLY [...] [facility] | [address] | [place] [address] | | | SERVICES, CORE | PARK [...] | + + + + + | [facility] | [address] | [place] [address] | | | SERVICES, CORE | LESLY [...] | | | LABORATORY | | | [place] | | | SERVICES, | | | [...] [facility] | [address] | [place] [address] | | | SERVICES, CORE | LESLY [...] AMES | [address] | [place], [place] | | | [place] | [address] | [address] | | | TESTS | | | [...] [facility] | [address] | [place], [place] | | | [facility] | [address] | [address] | | | TESTS | | | [...] [facility] | [address] | [place], [place] | | | [facility] | [address] | [address] | | | TESTS | | | [...] AMES | [address] | [place], [place] | | | [place] | [address] | [address] | | | TESTS | | | [...] [facility] | [address] | [place] [address] | | | SERVICES, CORE | PARK [...] [facility] | [address] | [place] [address] | | | SERVICES, CORE | PARK [...] | + + + + + | [facility] | [address] | [place] [address] | | | SERVICES, CORE | PARK [...] | + + + + + | [facility] | [address] | [place] [address] | | | SERVICES, CORE | LESLY [...] [facility] | [address] | [place] [address] | | | SERVICES, CORE | PARK [...] | | | LABORATORY | | | [place] | | | SERVICES, | | | [...] | + + + + + | [facility] | [address] | [place] [address] | | | CLAIRE, LYDIA | LESLY [...] [facility] | [address] | [place] [address] | | | LYDIA RANGEL | LESLY [...] | | | LABORATORY | | | [place] | | | SERVICES, | | | [...] + | [facility] | [address] | [place] [address] | | | SERVICES, CORE | LESLY [...] [facility] | [address] | [place], [place] | | | [facility] | [facility] | [address] | | | TESTS | | | [...] AMES | [address] | [place], [place] | | | [place] | [address] | [address] | | | TESTS | | | [...] AMES | [address] | [place], [place] | | | AB[facility]WN | [facility] | [address] | | | TESTS | | | [...] [facility] | [address] | [place], [place] | | | [facility] | [address] | [address] | | | TESTS | | | [...] + + | [facility] | [address] | [place] [address] | | | SERVICES, CORE | PARK [...] + + | [facility] | [address] | [place] [address] | | | SERVICES, CORE | PARK [...] | + + + + + | [facility] | [address] | [place] [address] | | | SERVICES, CORE | PARK [...] | | | LABORATORY | | | [place]AN | | | SERVICES, | | | [...] | + + + + + | [facility] | [address] | [place] [address] | | | SERVICES, CORE | PARK [...] [facility] | [address] | [place], [place] | | | [facility] | [address] | [address] | | | TESTS | | | [...] [facility] | [address] | [place] [address] | | | SERVICES, CORE | LESLY [...] [facility] | [address] | [place] [address] | | | SERVICES, CORE | PARK [...] [facility] | [address] | [place] [address] | | | SERVICES, CORE | PARK [...] [facility] | [address] | [place] [address] | | | CLAIRE, LYDIA | LESLY [...] [facility] | [address] | [place], [place] | | | [facility] | [address] | [address] | | | TESTS | | | [...] AMES | [address] | [place], [place] | | | [place] | [address] | [address] | | | TESTS | | | [...] | + + + + + | [facility] | [address] | [place] [address] | | | SERVICES, LYDIA | LESLY [...] - [facility] | [address] | [place], [place] | | | [facility] | [facility] | [address] | | | TESTS | | | [...] [facility] | [address] | [place] [address] | | | SERVICES, CORE | PARK [...] [facility] | [address] | [place] [address] | | | SERVICES, CORE | PARK [...] | + + + + + | [facility] | [address] | [place] [address] | | | SERVICES, CORE | PARK [...] | | | LABORATORY | | | [place]AN | | | SERVICES, | | | [...] | + + + + + | [facility] | [address] | [place] [address] | | | SERVICES, CORE | LESLY [...] [facility] | [address] | [place], [place] | | | [facility] | [address] | [address] | | | TESTS | | | [...] + + | [facility] | [address] | [place] [address] | | | SERVICES, LYDIA | LESLY [...] [facility] | [address] | [place], [place] | | | [facility] | [facility] | [address] | | | TESTS | | | [...] AMES | [address] | [place], [place] | | | [place] | [address] | [address] | | | TESTS | | | [...] | + + + + + | [facility] | [address] | [place] [address] | | | SERVICES, CORE | LESLY [...] [facility] | [address] | [place], [place] | | | [facility] [facility] | [facility] | [address] | | | TESTS | | | [...] | + + + + + | [facility] | [address] | [place] [address] | | | SERVICES, CORE | LESLY [...] | + + + + + | [facility] | [address] | [place] [address] | | | SERVICES, CORE | PARK [...] [facility] | [address] | [place] [address] | | | LYDIA RANGEL | LESLY [...] | | | LABORATORY | | | [place] | | | SERVICES, | | | [...] | + + + + + | [facility] | [address] | [place] [address] | | | SERVICES, CORE | LESLY [...] + | [facility] | [address] | [place] [address] | | | SERVICES, CORE | PARK [...] [facility] | [address] | [place] [address] | | | CLAIRE, LYDIA | LESLY [...] AMES | [address] | [place] | | | [facility] | [facility] | [address] | | | TESTS | | | [...] [facility] | [address] | [place], [place] | | | [facility] | [address] | [address] | | | TESTS | | | | + + + + + X-RAY PORTABLE CHEST PICC LINE CHECK (11/09/2015 3:12 PM PDT) + + + + + + | Component | Value | Ref Range | Performed | Pathologist | | | | | At | Signature | + + + + + + | XRAY | EXAM: ID CHEST PICC LINE | | | | [...] | + +---------+ + + | [facility] DEPARTMENT OF | | | | | [...] and meds | | | Procedure location: Unit:[facility] Room: 13 Providers: PICC Nurse | | [...] verifies correct patient, procedure, equipment, customer support technician | | | and site/side marked as [...] | area Cephalic vein. Catheter lot number: [id number] with a length of | | | [...] [facility]ES | [address] | [place], [place] | | | [facility] | [address] | [address] | | | TESTS | | | [...] [facility] | [address] | [place] [address] | | | SERVICES, CORE | LESLY [...] AMES | [address] | [place], [place] | | | [facility] | [address] | [address] | | | TESTS | | | [...] + | [facility] | [address] | [place] [address] | | | SERVICES, LYDIA | LESLY [...] [facility] | [address] | [place] [address] | | | LYDIA RANGEL | LESLY [...] [facility] | [address] | [place] [address] | | | SERVICES, CORE | PARK [...] | | | LABORATORY | | | [place]AN | | | SERVICES, | | | [...] the MDRD equation recommended by the | [facility] | | National Kidney Disease Education Program. [...] [facility] | [address] | [place] [address] | | | LYDIA RANGEL | LESLY [...] [facility] | [address] | [place], [place] | | | [facility] | [address] | [address] | | | TESTS | | | [...] [facility]ES | [address] | [place], [place] | | | [facility] | [address] | [address] | | | TESTS | | | [...] [facility] | [address] | [place] [address] | | | SERVICES, CORE | PARK [...] | + + + + + | [facility] | [address] | [place] [address] | | | SERVICES, CORE | LESLY [...] | + + + + + | [facility] | [address] | [place] [address] | | | SERVICES, LYDIA | LESLY [...] [facility] | [address] | [place], [place] | | | [facility] | [facility] | [address] | | | TESTS | | | [...] [facility] | [address] | [place], [place] | | | [facility] | [address] | [address] | | | TESTS | | | [...] [facility] | [address] | [place], [place] | | | [facility] | [facility] | [address] | | | TESTS | | | [...] | + + + + + | [facility] | [address] | [place] [address] | | | SERVICES, CORE | LESLY [...] [facility] | [address] | [place] [address] | | | SERVICES, CORE | PARK [...] [facility] | [address] | [place] [address] | | | SERVICES, CORE | PARK [...] [facility] | [address] | [place] [address] | | | SERVICES, LYDIA | LESLY [...] [facility] | [address] | [place] [address] | | | SERVICES, CORE | PARK [...] | | | LABORATORY | | | [place] | | | SERVICES, | | | [...] [facility] | [address] | [place] [address] | | | LYDIA RANGEL | LESLY [...] | + + + + + | [facility] | [address] | [place] [address] | | | LYDIA RANGEL | LESLY [...] [facility] | [address] | [place], [place] | | | [facility] | [address] | [address] | | | TESTS | | | [...] | + + + + + | [facility] | [address] | [place] [address] | | | SERVICES, CORE | LESLY [...] [facility] | [address] | [place], [place] | | | [place] | [address] | [address] | | | TESTS | | | [...] [facility] | [address] | [place], [place] | | | [place] | [address] | [address] | | | TESTS | | | | + + + + + TRANSTHORACIC ECHOCARDIOGRAM, ADULT (11/07/2015 1:28 PM PDT) + + + + + + | Component | Value | Ref Range | Performed | Pathologist | | | | | At | Signature | + + + + + + | EJECTION | 60 to 65 | | [facility]PT | | | FRACTION | | [...] DEPT OF | [address] | [place], [place] | | | CARDIOLOGY | [address] | [address] | | + + + + + [...] [facility] | [address] | [place], [place] | | | [place] | [address] | [address] | | | TESTS | | | [...] | | | LABORATORY | | | [place] | | | SERVICES, | | | [...] [facility] | [address] | [place] [address] | | | SERVICES, CORE | PARK [...] [facility] | [address] | [place] [address] | | | SERVICES, CORE | PARK [...] | + + + + + | [facility] | [address] | [place] [address] | | | SERVICES, CORE | LESLY [...] [facility] | [address] | [place], [place] | | | [place] | [address] | [address] | | | TESTS | | | [...] [facility] | [address] | [place] [address] | | | SERVICES, CORE | PARK [...] [facility] | [address] | [place] [address] | | | LYDIA RANGEL | LESLY [...] [facility] | [address] | [place] [address] | | | SERVICES, CORE | LESLY [...] [facility] | [address] | [place] [address] | | | CLIARE, LYDIA | [address] | | | [...] [facility] | [address] | [place], [place] | | | [facility] | [address] | [address] | | | TESTS | | | [...] [facility] | [address] | [place] [address] | | | SERVICES, CORE | PARK [...] [facility] | [address] | [place] [address] | | | SERVICES, CORE | [address] | | | + + + + + MAGNESIUM, PLASMA (11/07/2015 3:17 AM PDT) + +-------+ + + + | Component | Value | Ref Range | Performed | Pathologist | | | | | At | Signature | + +-------+ + + + | MAGNESIUM,P | 1.9 | 1.8 - 2.5 mg/dL | [facility] | | | [facility]MA | | | [...] | + + + + + | [facility] | [address] | [place] [address] | | | SERVICES, CORE | PARK [...] | | | LABORATORY | | | [place] | | | SERVICES, | | | [...] the MDRD equation recommended by the | [facility] | | National Kidney Disease Education Program. [...] | + + + + + | [facility] | [address] | [place] [address] | | | SERVICES, CORE | PARK [...] ED | | | | | | spotlight operator at 12:33 AM by | | [...] [facility] | [address] | [place], [place] | | | [facility] | [address] | [address] | | | TESTS | | | [...] [facility] | | | | | | JSUTINE DAWN | | [...] [facility] | | | | | | JUSTIEN [facility]WN | | [...] + + | [facility] | [address] [address] | [place], [place] | | | [facility] | [facility] | [address] | | | TESTS | | | [...] [facility] | [address] | [place] [address] | | | CLAIRE, LYDIA | LESLY [...] + | [facility] | [address] | [place], [place] | | | CARDIOLOGY | [address] | [address] | | + + + + + [...] [facility] | [address] | [place] [address] | | | LYDIA RANGEL | LESLY [...] [facility] | [address] | [place] [address] | | | SERVICES, CORE | PARK [...] | | | LABORATORY | | | [place] | | | SERVICES, | | | [...] + + | [facility] | [address] | [place] [address] | | | SERVICES, CORE | PARK [...] | + + + + + | [facility] | [address] | [place] [address] | | | SERVICES, CORE | [address] | | | + + + + + ED INFORMATION EXCHANGE (11/06/2015 1:26 PM PDT) + + + + + + | Component | Value | Ref Range | Performed | Pathologist | | | | | At | Signature | + + + + + + | [facility] | [id number] | | [facility] | | | | [id number] | | MEDICAL | | | | [...] | ---- 11/06/2015 | | | 13:25 [facility] [place] [facility] | | | [address]. 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 | | | | | | --- | | + + + + + + + + | Performing | Address | City/State/Zipcode | Phone Number | | Organization | | | | + + + + + | [facility] | [address] | [place], [place] | [phone] | | [employer] | [address] | [address] | | + + + + + [...] 4:14 | | | | | dose, [facility] 11/08/15 at 1430 | | PM [...] 7:51 | | | | | dose, [place] 11/18/15 at 0730 | | AM PDT [...] | | | | First dose on [facility] 11/08/15 at | | PM PDT [...] | | | oral, ONCE, 1 dose, [facility] 11/08/15 | | PM PDT | [...] | | | | ONCE, 1 dose, [facility] 11/08/15 at 1900 | | PM [...] | | | | | 1 dose, [facility] 11/06/15 at 2115 | | PM PDT [...]
--- OUTSIDE RECORDS SUMMARY | ~2019-12-19 | XMS | Encounter Summary ---
Demographics + + + | Address | [address] | | | [place] [address] | + + + | Home Phone [...] + | Katalina Padilla | ECON | [address] | | | | | [place], [place] | | | | | [address] | | + + + + + | Ellie Vang | ECON | Unknown | | + + + + + Care Team Providers + +------+ + | Care Hand Ironer Name | Role | Phone | + [...] | | 2015 | | [facility] at [facility] | MD [address] | | | | | [address] | [place], [place] | | | | | Mailcode: 9A | [address] | | | | | [facility] | [phone] | | | | | and [place], | | | | | | [address] | | | | | | [place], [place] | | | | | | [address] | | | | | | [phone] | | | +--------+--------+ + + + [...] Flannery | | | | | | [place], [place] | | | | | | [address] | | | | | | [phone] | | | | | | | | +--------+---------+ + + + documented as of this encounter Visit Diagnoses Not on filedocumented in this encounter"
--- OUTSIDE RECORDS SUMMARY | ~2019-12-19 | XMS | Encounter Summary ---
Demographics + + + | Address | [address] | | | [place] [address] | + + + | Home Phone | | + + + | Preferred Language | Unknown | + + + | Marital Status | | + + + | Faith Affiliation | Unknown | + + + | Race | Unknown | + + + | Ethnic Group | Unknown | + + + Author + + + | Author | [facility] | | | and [facility] | + + + | Organization | [facility] | | [...] Providers + +------+ + | Care Flight Operations Coordinator Name | Role | Phone | + +------+ + PCP | Unavailable | + +------+ + Encounter Details +--------+ + + + + | Date | Type | Department | Care Team | Description | +--------+ + + + + | 12/23/ | Orders Only | [facility] | Conversion | | | 2017 | | NEPHROLOGY JESUS | Transaction, | | | | | [address] | Provider Unknown | | | | | [address] | | | | | | [address] | (Fax) | | | | | [phone] | | | +--------+ + + + [...] RICHEY | | | | | | [place] [address] | | | | | | [phone] | | | | | | | [...]
--- OUTSIDE RECORDS SUMMARY | ~2019-12-19 | XMS | Encounter Summary ---
Demographics + + + | Address | [address] | | | [place] [address] | + + + | Home Phone [...] [place], [place] | | | | | [address] | | + + + + + | Ellie Vang | ECON | Unknown | | + + + + + Care Team Providers + +------+ + | Care Washer Engineer Name | Role | Phone | [...] + + | 06/23/ | Hospital | [facility] [address] | Kaleb Wilcox MD | | | 2017 | Encounter | [address] | [address] | | | | | [address] | [place], [place] | | | | | [place], | [address] | | | | | [place] [address] | [phone] | | | | | [phone] | | | +--------+ + + + [...] hours or on weekends and holiday Hospital Advertising Writer toll free [phone]. [phone] and have the GI doctor marketing information manager paged. The provider who performed your procedure is: Dr. Wilcox Results of your EGD: Dilation performed. You may resume your regular diet. Follow up Appointments with: Follow up with Dr. Pandey in bariatric surgery, thank you for choosing [facility]! Your primary care provider or referring [...] | | 0 | | | | [id number] | mouth two times | | | [...] Y gastric bypass Sedation: General anesthesia in [facility] [place] Findings: Normal esophagus Normal appearing gastric pouch [...] 2:35 PM PST PRE PROCEDURE NOTE: MR# [id number] Subjective: Elzbieta Cristina is a 43 y.o. [...] Flannery | | | | | | [place], [place] | | | | | | [address] | | | | | | [phone] | | | | | | | [...] -----+ | MRN: | [facility] | | [id number] Date: 06/23/2018Patient Name: Elzbieta Curtis #: | ENDOSCOP Y | | [id number] of : 1975CSN: [id number] Type: | | | AmbulatoryRoom: SORProcedure: Upper GI | | | endoscopyIndications: Nausea with vomiting, Status post | | | Qyuw-hj-FLuduemiqq: KALEB WILCOX MD (Doctor), JOSE | | | NASIMA Crimper Assembler | | | (Crimper Assembler)Referring MD: DANIELLE GARCÍAPRequestdonya | | | Provider: [...] | | | The Olympus [id number]-[id number] Gastroscope #[id number] was | | | introduced through the [...] endoscope without resistance. The | | | xanno-bp-rqbgsjd limb was characterized by healthy appearing | [...] Initiated On: | | | 06/23/2018 3:58 [facility] Letter to: FADI MICHAEL DO | [...] [place] | [address] | [place], [place] | | | [facility] | [address] | [address] | | | TESTS | | | [...] | | | | | | Until [facility] 06/24/18 at 0027, | | | [...]
--- OUTSIDE RECORDS SUMMARY | ~2019-12-19 | XMS | Encounter Summary ---
Demographics + + + | Address | [address] | | | [place] [address] | + + + | Home Phone [...] + | Katalina Padilla | ECON | [address] | | | | | [place], [place] | | | | | [address] | | + + + + + | Ellie Vang | ECON | Unknown | | + + + + + Care Team Providers + +------+ + | Care Rehab Nursing Tech Name | Role | Phone | [...] | | [address] | [address] [place], [place] | | | | | Mailcode: [place] | [address] | | | | | for [facility] and | [phone] | | | | | [facility] | | | | | | [facility] [place] | | | | | | [address] | | | | | | | [...] | | 2019 | Visit | | [address] | | | | | | [place], [place] | | | | | | [address] | | | | | | [phone] | | | | | | | | +--------+---------+ + + + documented as of this encounter Visit Diagnoses Not on filedocumented in this encounter"
--- OUTSIDE RECORDS SUMMARY | ~2019-12-19 | XMS | Encounter Summary ---
Demographics + + + | Address | [address] | | | [place] [address] | + + + | Home Phone [...] [place], [place] | | | | | [address] | | + + + + + | Ellie Vang | ECON | Unknown | | + + + + + Care Team Providers + +------+ + | Care Director Of Sales Marketing Name | Role | Phone | + +------+ + | Fadi Goodrich DO | PCP | | + +------+ + Encounter Details +--------+ + + + + | Date | Type | Department | Care Team | Description | +--------+ + + + + | 02/09/ | Abstract | Digestive Health | Clinic, Surgery | | | 2016 | | [place] [address] [address] | | | | | | [address] | | | | | | Mailcode: [place] | | | | | | [facility] Health and | | | | | | [facility] 2 | | | | | | [place], [place] | | | | | | [address] | | | | | | [phone] | | | +--------+ + + + [...] Flannery | | | | | | [place], [place] | | | | | | [address] | | | | | | [phone] | | | | | | | | +--------+---------+ + + + documented as of this encounter Visit Diagnoses Not on filedocumented in this encounter"
--- OUTSIDE RECORDS SUMMARY | ~2019-12-19 | XMS | Encounter Summary ---
Demographics + + + | Address | [address] | | | [place] [address] | + + + | Home Phone [...] [place], [place] | | | | | [address] | | + + + + + | Ellie Vang | ECON | Unknown | | + + + + + Care Team Providers + +------+ + | Care Township Clerk Name | Role | Phone | + +------+ + | Fadi Goodrich DO | PCP | | + +------+ + Encounter Details +--------+ + + + + | Date | Type | Department | Care Team | Description | +--------+ + + + + | 03/16/ | Telephone | Digestive Health | Ronna Clarke, | | | 2018 | | Center at [facility] [address] | ACNP [address] | | | | | [address] | Ave [place], [place] | | | | | Mailcode: [place] | [address] | | | | | for Health and | [phone] | | | | | [facility] 2 | | | | | | [place], [place] | | | | | | [address] | | | | | | | [...] Flannery | | | | | | [facility] [place] | | | | | | [address] | | | | | | [phone] | | | | | | | | +--------+---------+ + + + documented as of this encounter Visit Diagnoses Not on filedocumented in this encounter"
--- OUTSIDE RECORDS SUMMARY | ~2019-12-19 | XMS | Encounter Summary ---
Demographics + + + | Address | [address] | | | [place] [address] | + + + | Home Phone [...] [place], [place] | | | | | [address] | | + + + + + | Ellie Vang | ECON | Unknown | | + + + + + Care Team Providers + +------+ + | Care Program Support Specialist Name | Role | Phone [...] | | | | | essential | [address] | [address] | | | | | hypertension | [address], | Ave | | | | | Type II or | [address] | [place], [place] | | | | | unspecified | [place], [place] | [address] | | | | | type | [address] | Phone: | | | | | diabetes | Phone: | [phone] | | | | | mellitus | [phone] | Fax: | | | | | without | Fax: | [phone] | | | | | mention of | [phone] | | | | | | complication [...] 12/05/ | Office | Cardiology | Randell rFanks, | Type 2 diabetes | | 2013 | Visit | Preventive at [facility] | MD [address] | mellitus (HCC) | | | | [address] | [place], [place] | (Primary Dx); | | | | Mailcode: 9A | [address] | Migraine headache | | | | [facility] | [phone] | | | | | and Erick, | | | | | | Building [address] | | | | | | [place], [place] | | | | | | [address] | | | | | | [phone] | | | +--------+---------+ + + + [...] she is hypothyroid and put her on [place] Thyroid hormone replacement therapy. Her heart rate [...] Flannery | | | | | | [place], [place] | | | | | | [address] | | | | | | [phone] | | | | | | | [...] | + + + + + | [facility] | [address] | [place] [address] | | | SERVICES, SPECIAL | PARK [...]
--- OUTSIDE RECORDS SUMMARY | ~2019-12-19 | XMS | Encounter Summary ---
Demographics + + + | Address | [address] | | | [place] [address] | + + + | Home Phone [...] [place], [place] | | | | | [address] | | + + + + + | Ellie Vang | ECON | Unknown | | + + + + + Care Team Providers + +------+ + | Care Travel Guide Name | Role | Phone | + +------+ + | Kenyatta Cardenas MD | PCP | | + +------+ + Encounter Details +--------+ + + + + | Date | Type | Department | Care Team | Description | +--------+ + + + + | 05/03/ | Inside | NKE[facility]I DUMAS at [facility] | Ion Pandey, | | | 2018 | Referral | [facility] [address] | MD [address] | | | | Order | [address] Mailcode: | [place], [place] | | | | | [address] [place] [address] | [address] | | | | | Health and Healing, | [phone] | | | | | Building 2 | | | | | | [place], [place] | | | | | | [address] | | | | | | [phone] | | | +--------+ + + + [...] Flannery | | | | | | [place], [place] | | | | | | [address] | | | | | | [phone] | | | | | | | [...]
--- OUTSIDE RECORDS SUMMARY | ~2019-12-19 | XMS | Encounter Summary ---
Demographics + + + | Address | [address] | | | [place] [address] | + + + | Home Phone [...] [place], [place] | | | | | [address] | | + + + + + [...] | | 2018 | | Preventive at [facility] | [address] | (Phentermine 37.5mg) | | | | [address] | [place], [place] | | | | | Mailcode: [facility] | [address] | | | | | [facility] | [phone] | | | | | and Erick, | | | | | | Building 1 | | | | | | [place], [place] | | | | | | [address] | | | | | | [phone] | | | +--------+ + + + [...] Flannery | | | | | | [place], [place] | | | | | | [address] | | | | | | [phone] | | | | | | | | +--------+---------+ + + + documented as of this encounter Visit Diagnoses Not on filedocumented in this encounter"
--- OUTSIDE RECORDS SUMMARY | ~2019-12-19 | XMS | Encounter Summary ---
Demographics + + + | Address | [address] | | | [place] [address] | + + + | Home Phone [...] [place], [place] | | | | | [address] | | + + + + + | Ellie Vang | ECON | Unknown | | + + + + + Care Team Providers + +------+ + | Care Data Processing Control Clerk Name | Role | Phone [...] CHOLECYSTECOMY WITH | | | | Brock [facility] Moreno | Clarence Bonner [place], | INTRA-OP | | | | Hospital Admitting | [place] [address] | CHOLANGIOGRAM | | | | Desk Located on the | [phone] | | | | | 9th floor | | | | | | [place], [place] | | | | | | [address] | | | +--------+---------+ + + + [...] the resident s note. PRADIP STARR MD [facility] [address] [facility] [place] [address] orrest, Maryam Yu MD - 1:05 PM PDT [facility] DEPARTMENT OF SURGERY [...] 2 DM who presented to the [facility] ED ([place], [place]) on 02/06/14, with a week hi story of RUQ abdominal pain that radiates to her back. There, she was found to have leukocyt osis and multiple tiny, mobile stones, + sonographic Peterson's sign on abdominal ultrasound, concerning for acute cholecystitis. She was givenIV antibiotics (cipro, flagyl) and pain med s, then transferred to [facility] by [facility] for further care. Ms. Romero endorsed 02/02 [...] up with Trauma Emergency General Surgery at [facility] In 4 weeks. (follow up in 2-4 weeks ) Contact information [address] [facility] Mailcode: L223a [address] [place] [address] Thank you for the [...] the resident s note. PRADIP STARR MD [facility] [address]A [address] [place] [address] orrMaryam hill MD - 5:17 AM PDT [facility] DEPARTMENT OF SURGERY EMERGENCY GENERAL SURGERY Division [...] tolerated MARYAM RHODES MD PGY-1, General Surgery 9[address] pager number [facility] A [address] [facility] [address] documented in this encoun ter Plan of Treatment +--------+---------+ + + + | Date | Type | Specialty | Care Team | Description | +--------+---------+ + + + | 03/15/ | Office | Cardiology | Randell Franks, | | | 2019 | Visit | | [address] | | | | | | [place], [place] | | | | | | [address] | | | | | | [phone] | | | | | | | [...] KWAKU | [address] | [place], [place] | | | JUSTINE DAWN OF JAKY | [facility] | [address] | | | TESTS | | | [...] KWAKU | [address] | [place], [place] | | | JUSTINE DAWN OF CARE | [facility] | [address] | | | TESTS | | | [...] (H) | 60 - 99 mg/dL | [facility] - [...] AMES | [address] | [place], [place] | | | JUSTINE DAWN OF CARE | [facility] | [address] | | | TESTS | | | [...] KWAKU | [address] | [place], [place] | | | JUSTINE DAWN OF JAKY | [address] | [address] | | | TESTS | | | [...] [facility] | [address] | [place] [address] | | | SERVICES, | [address] [...] | + + + + + | [facility] | [address] | [place] [address] | | | SERVICES, | [address] [...] MARQUAM | [address] | [place], [place] | | | [place] POINT OF CARE | [address] | [address] | | | TESTS | | | [...] [facility] | [address] | [place] [address] | | | SERVICES, CORE | [address] [...] + + | [facility] | [address] [facility] | [place] [address] | | | SERVICES, CORE | PARK [...] [facility] | [address] | [place] [address] | | | SERVICES, CORE | PARK [...] + | [facility] | [address] [facility] | [place] [address] | | | SERVICES, CORE | CLARENCE [...] | | | LABORATORY | | | EQUATORIAL GUINEAN | | | SERVICES, | | | [...] | + + + + + | [facility] | [address] | [place] [address] | | | SERVICES, CORE | PARK [...] MARQUAM | [address] | [place], [place] | | | JUSTINE DAWN OF CARE | [address] | [address] | | | TESTS | | | [...] pattern. | | | | | | Copy And Print Associate | | | | | | sections [...] | + + + + + | [facility] | [address] | [place] [address] | | | PATHOLOGY | [address] [...]
--- OUTSIDE RECORDS SUMMARY | ~2019-12-19 | XMS | Encounter Summary ---
Demographics + + + | Address | [address] | | | [place] [address] | + + + | Home Phone [...] [place], [place] | | | | | [address] | | + + + + + | Ellie Vang | ECON | Unknown | | + + + + + Care Team Providers + +------+ + | Care Gemologist Name | Role | Phone | + +------+ + | Fadi Goodrich DO | PCP | | + +------+ + Encounter Details +--------+ + + + + | Date | Type | Department | Care Team | Description | +--------+ + + + + | 10/27/ | Abstract | Digestive Health | Clinic, Surgery | | | 2018 | | [place] at [facility] [address] | | | | | | [address] | | | | | | Mailcode: [place] | | | | | | [facility] Health and | | | | | | [facility] 2 | | | | | | [place], [place] | | | | | | [address] | | | | | | [phone] | | | +--------+ + + + [...] Flannery | | | | | | [place], [place] | | | | | | [address] | | | | | | [phone] | | | | | | | | +--------+---------+ + + + documented as of this encounter Visit Diagnoses Not on filedocumented in this encounter"
--- OUTSIDE RECORDS SUMMARY | ~2019-12-19 | XMS | Encounter Summary ---
Demographics + + + | Address | [address] | | | [place] [address] | + + + | Home Phone [...] Organization | [facility] | | | and Jeffana [...] Providers + +------+ + | Care It Software Engineer Name | Role | Phone [...] Closed | | Radiology | Diagnoses | [place], | [facility] | | | | | Deep vein | Dharmesh | Intra Op [address] | | | | | thrombosis | MD Natan | [address] | | | | | (DVT) of | [address] | [place], [place] | | | | | left lower | [address] | [address] | | | | | extremity, | [address] | Phone: | | | | | unspecified | [place], [place] | [phone] | | | | | chronicity, | [address] | Fax: | | | | | unspecified | Phone: | [phone] | | | | | vein (HCC) | [phone] | | | | | | Procedures | Fax: | | | | | | IR Removal | [phone] | | | | | | Fibrin [...] Closed | | Radiology | Diagnoses | [place], | [facility] | | | | | Deep vein | Dharmesh | [address] | | | | | thrombosis | MD Natan | [address] | | | | | (DVT) of | [address] | [place], [place] | | | | | left lower | [address] | [address] | | | | | extremity, | [address] | Phone: | | | | | unspecified | [place], [place] | [phone] | | | | | chronicity, | [address] | Fax: | | | | | unspecified | Phone: | [phone] | | | | | vein (HCC) | [phone] | | | | | | Procedures | Fax: | | | | | | IR Removal | [phone] | | | | | | Fibrin | | | | | | | Sheath/Clot | | | | | | | on Device | | | +--------+--------+ + + + + Encounter Details +--------+ + + + + | Date | Type | Department | Care Team | Description | +--------+ + + + + | 11/27/ | Hospital | [facility] | Dharmesh Melchor | Deep vein thrombosis | | 2019 | Encounter | CENTER CV INTRA OP | MD Natan [address] | (DVT) of left lower | | | | [address] | Payal Esteban | extremity, | | | | [place], [place] | [place] [address] | unspecified | | | | [address] | [phone] | chronicity, | | | | [phone] | | unspecified vein | | | | | Christian Dawson MD | (HCC) | | | | | [address] | | | | | | [place], [place] | | | | | | [address] | | | | | | | [...] any of the signs, contact the [facility] at between 8:00 am and [...] | | 0 | | | | Ijyquqh-Pjnctyqnq-Qi | mouth 2 times daily. | | [...] + + +---------+ + + | thyroid (GREEN CHAIN PULLER | [employer] PULLER Thyroid 30 mg | | 0 | [...] RICHEY | | | | | | [place] [address] | | | | | | [phone] | | | | | | | [...]
--- OUTSIDE RECORDS SUMMARY | ~2019-12-19 | XMS | Encounter Summary ---
Demographics + + + | Address | [address] | | | [place] [address] | + + + | Home Phone [...] [place], [place] | | | | | [address] | | + + + + + | Ellie Vang | ECON | Unknown | | + + + + + Care Team Providers + +------+ + | Care Physical Security Manager Name | Role | Phone [...] [place] | | | | | Mailcode: [facility] | [address] | | | | | [facility] | [phone] | | | | | and Healing, | | | | | | Building [address] | | | | | | [facility] [place] | | | | | | [address] | | | | | | [phone] | | | +--------+ + + + [...] | | 2019 | Visit | | [address] | | | | | | [place], [place] | | | | | | [address] | | | | | | [phone] | | | | | | | | +--------+---------+ + + + documented as of this encounter Visit Diagnoses Not on filedocumented in this encounter"
--- OUTSIDE RECORDS SUMMARY | ~2019-12-19 | XMS | Encounter Summary ---
Demographics + + + | Address | [address] | | | [place] [address] | + + + | Home Phone [...] + | Katalina Padilla | ECON | [address] | | | | | [place], [place] | | | | | [address] | | + + + + + | Ellie Vang | ECON | Unknown | | + + + + + Care Team Providers + +------+ + | Care Software Design Engineer Name | Role | Phone [...] | | 2013 | | Center at [facility] [address] | SHOE REPA[employer] COBBLER [address] | | | | | [address] | [facility] 350 | | | | | Mailcode: Center | [place], [place] | | | | | for Health and | [address] | | | | | [facility] 2 | [phone] | | | | | [place], [place] | | | | | | [address] | | | | | | [phone] | | | +--------+ + + + [...] [place] | | | | | | [address] | | | | | | [phone] | | | | | | | | +--------+---------+ + + + documented as of this encounter Visit Diagnoses Not on filedocumented in this encounter"
--- OUTSIDE RECORDS SUMMARY | ~2019-12-19 | XMS | Encounter Summary ---
Demographics + + + | Address | [address] | | | [place] [address] | + + + | Home Phone [...] [place], [place] | | | | | [address] | | + + + + + | Ellie Vang | ECON | Unknown | | + + + + + Care Team Providers + +------+ + | Care Line Supervisor Name | Role | Phone | [...] | 2019 | Visit | Preventive at [facility] | MD [address] | mellitus without | | | | [address] | [place], [place] | complication, with | | | | Mailcode: CH9A | [address] | long-term current | | | | [facility] | [phone] | use of insulin ([facility]) | | | | and Healing, | | (Primary Dx); | | | | Building [address] | | Morbid obesity with | | | | [place], [place] | | BMI of 70 and over, | | | | [address] | | adult (HCC) | | | | [phone] | | | +--------+---------+ + + + [...] mellitus ([facility]) 04/14/2013 Priority: 5 Iron deficiency anemia due to chronic blood loss 11/11/2015 Priority: 6 Overview Note: Ferritin 18 on 10/2015 Hypoalbuminemia (no proteinuria, need to rule out synthetic, nutrition, loss) 6 Priority: 6 Hypothyroidism 08/28/2014 Priority: 8 Morbid obesity with BMI of 70 and over, adult ([facility]) 02/02/2017 Chronic diastolic heart failure (HCC) 02/02/2017 [...] daily. BELBUCA 300 mcg buccal film CALCIUM CRB&ASQ-Z7-XYT58-GENIS ORAL Take 2 tablets by mouth two [...] of metformin, and she reports her last dkdic-li-ztfw A1 c was 5.5% on this dose. [...] CREATININE PLASMA (LAB) 0.85 0.70 EGFR - GIBRALTARIAN >60 >60 EGFR NON -GIBRALTARIAN >60 >60 GLUCOSE, PLASMA (LAB) 123 (H) [...] is currently being managed well by her Ton Cylinder Inspector with diuretics and main tenance of her [...] management of her heart failure by her Ton Cylinder Inspector 3) discontinue metformin 4) check 24 urine [...] Flannery | | | | | | [place], [place] | | | | | | [address] | | | | | | [phone] | | | | | | | [...] | | use of insulin ([facility]) | | | | | | Morbid [...] [address] | [place] | [phone] | | SARAH | | | | [...]
--- OUTSIDE RECORDS SUMMARY | ~2019-12-19 | XMS | Encounter Summary ---
Demographics + + + | Address | [address] | | | [place] [address] | + + + | Home Phone [...] + | Katalina Padilla | ECON | [address] | | | | | [place], [place] | | | | | [address] | | + + + + + | Ellie Vang | ECON | Unknown | | + + + + + Care Team Providers + +------+ + | Care Manager Contract Name | Role | Phone | + [...] | Event | Medicine Clinic at | [place], [place] | | | | | [facility] | [address] | | | | | [address] | | | | | | Mail Code: OC8PM | | | | | | [facility] | | | | | | and Healing, | | | | | | Building [address] | | | | | | [place], [place] | | | | | | [address] | | | | | | [phone] | | | +--------+ + + + [...] [address]ann[address] | | | | | | [place] | | | | | | [address] | | | | | | [phone] | | | | | | | | +--------+---------+ + + + documented as of this encounter Visit Diagnoses Not on filedocumented in this encounter"
--- OUTSIDE RECORDS SUMMARY | ~2019-12-19 | XMS | Encounter Summary ---
Demographics + + + | Address | [address] | | | [place] [address] | + + + | Home Phone [...] [place], [place] | | | | | [address] | | + + + + + | Ellie Vang | ECON | Unknown | | + + + + + Care Team Providers + +------+ + | Care Compressor Operator Name | Role | Phone | [...] + | 06/23/ | Hospital | [facility] [address] | Kaleb Wilcox MD | | | 2017 | Encounter | [address] | [address] | | | | | [address]/[address] | [place], [place] | | | | | [place], | [address] | | | | | [place] [address] | [phone] | | | | | [phone] | | | +--------+ + + + [...] hours or on weekends and holiday Hospital Technical Photographer toll free [phone]. [phone] and have the GI doctor emanations analysis technician paged. The provider who performed your procedure is: Dr. Wilcox Results of your EGD: Dilation performed. You may resume your regular diet. Follow up Appointments with: Follow up with Dr. Pandey in bariatric surgery, thank you for choosing [facility]! Your primary care provider or referring provider [...] | | 0 | | | | CRB&GMV-Z9-YRU58-GEN | mouth two times | | | [...] Y gastric bypass Sedation: General anesthesia in [facility] Findings: Normal esophagus Normal appearing gastric pouch [...] 2:35 PM PST PRE PROCEDURE NOTE: MR# [id number] Subjective: Elzbieta Cristina is a 43 y.o. [...] [address] | | | | | | [place], [place] | | | | | | [address] | | | | | | [phone] | | | | | | | [...] -----+ | MRN: | [facility] | | [id number] Date: 06/23/2018Patient Name: Elzbieta Curtis #: | ENDOSCOP Y | | [id number] of : 1975CSN: [id number] Type: | | | AmbulatoryRoom: SORProcedure: Upper GI | | | endoscopyIndications: Nausea with vomiting, Status post | | | Dqzu-hx-DMvdmgyins: KALEB WILCOX MD (Doctor), JOSE | | | [employer] | | | (Mortgage Protection Sales)Referring MD: DANIELLE GARCÍAPRequestdonya | | | Provider: [...] | | | The Olympus GIF-[id number] Gastroscope #[id number] was | | | introduced through the [...] endoscope without resistance. The | | | qmkyi-lf-jacdpty limb was characterized by healthy appearing | [...] 06/23/2018 3:58 [facility] Letter to: FADI MICHAEL DO | | [...] [facility] | [address] | [place], [place] | | | [place] POINT OF CARE | [address] | [address] | | | TESTS | | | [...] | | | | Until [facility] 06/24/18 at 0027, | | | [...]
--- OUTSIDE RECORDS SUMMARY | ~2019-12-19 | XMS | Encounter Summary ---
Demographics + + + | Address | [address] | | | [place] [address] | + + + | Home Phone [...] | [facility] | | | and Jeffana [...] Team Providers + +------+ + | Care Brim Blocker Name | Role | Phone | + +------+ + PCP | Unavailable | + +------+ + Encounter Details +--------+ + + + + | Date | Type | Department | Care Team | Description | +--------+ + + + + | 12/07/ | Orders Only | [facility] | Conversion | | | 2019 | | NEPHROLOGY JESUS | Transaction, | | | | | [address] | Provider Unknown | | | | | [address] | | | | | | [address] | (Fax) | | | | | [phone] | | | +--------+ + + + [...] R[address]HEY | | | | | | [place] [address] | | | | | | [phone] | | | | | | | [...] | | | LAB | | | [facility] | | | | | + +-------+ [...]
--- OUTSIDE RECORDS SUMMARY | ~2019-12-19 | XMS | Encounter Summary ---
Demographics + + + | Address | [address] | | | [place] [address] | + + + | Home Phone [...] [place], [place] | | | | | [address] | | + + + + + | Ellie Vang | ECON | Unknown | | + + + + + Care Team Providers + +------+ + | Care Box Maker Name | Role | Phone | [...] | at [facility] [address] | COLOR PRINT INSPECTOR [address] | [facility] | | | | Ave Mailcode: CH7C | [place], [place] | | | | | [facility] | [address] | | | | | and [address]rick, | [phone] | | | | | [facility] | | | | | | Floor [place], [place] | | | | | | [address] | | | | | | [phone] | | | +--------+ + + + [...] | | 2019 | Visit | | [address] | | | | | | [place], [place] | | | | | | [address] | | | | | | [phone] | | | | | | | | +--------+---------+ + + + documented as of this encounter Visit Diagnoses Not on filedocumented in this encounter"
--- OUTSIDE RECORDS SUMMARY | ~2019-12-19 | XMS | Encounter Summary ---
Demographics + + + | Address | [address] | | | [place] [address] | + + + | Home Phone [...] [place], [place] | | | | | [address] | | + + + + + | Ellie Vang | ECON | Unknown | | + + + + + Care Team Providers + +------+ + | Care Genetic Coordinator Name | Role | Phone | + +------+ + | Fadi Goodrich DO | PCP | | + +------+ + Encounter Details +--------+ + + + + | Date | Type | Department | Care Team | Description | +--------+ + + + + | 08/22/ | Abstract | Cardiology | Randell Franks, | | | 2013 | | Preventive at [facility] | MD [address] | | | | | [address] | [place], [place] | | | | | Mailcode: CH9A | [address] | | | | | [facility] | [phone] | | | | | and Healing, | | | | | | [address] | | | | | | [facility] [place] | | | | | | [address] | | | | | | [phone] | | | +--------+ + + + [...] Flannery | | | | | | [place], [place] | | | | | | [address] | | | | | | [phone] | | | | | | | | +--------+---------+ + + + documented as of this encounter Visit Diagnoses Not on filedocumented in this encounter"
--- OUTSIDE RECORDS SUMMARY | ~2019-12-19 | XMS | Encounter Summary ---
Demographics + + + | Address | [address] | | | [place] [address] | + + + | Home Phone [...] [place], [place] | | | | | [address] | | + + + + + | Ellie Vang | ECON | Unknown | | + + + + + Care Team Providers + +------+ + | Care Warning Coordination Meteorologist Name | Role | Phone | + [...] [address] [place] Mailcode: | [place], [place] | | | | | CH3G [facility] | [address] | | | | | Health and Healing, | [phone] | | | | | [address] | | | | | | Floor [place], [place] | | | | | | [address] | | | | | | [phone] | | | +--------+ + + + [...] | | 0 | | | | [id number]-[id number]-GEN | mouth two times | | | [...] Flannery | | | | | | [place], [place] | | | | | | [address] | | | | | | [phone] | | | | | | | [...] + + + | EXAM: Esophagram with sterile supply technician radiograph HISTORY: RYGB 03/01/2018, | [facility] | | vomiting/pain ever since COMPARISON: 04/27/2018 CT TECHNIQUE: | RADIOLOGY VOICE | | Abstract Writer radiograph was performed. Single contrast exam of the esophagus, | RECOGNITION 2 | | gastric pouch, and gastrojejunostomy in upright positioning. | | | Radiation dose reduction technique was maximized where appropriate | | | using pulsed fluoroscopy and fluoro-store images. Fluoro Time 57 | | | second(s) FINDINGS: Abstract Writer shows stone in the upper pole of [...] AM PST EXAM: Esophagram | | with sterile supply technician radiograph HISTORY: RYGB 03/01/2018, vomiting/pain ever since COMPARISON: | | 04/27/2018 CT TECHNIQUE: Abstract Writer radiograph was performed. Single contrast exam of the | | esophagus, gastric pouch, and gastrojejunostomy in upright positioning. Radiation dose | | reduction technique was maximized where appropriate using pulsed fluoroscopy and | | fluoro-store images. Fluoro Time 57 second(s) FINDINGS:Abstract Writer shows stone in the upper | | [...]
--- OUTSIDE RECORDS SUMMARY | ~2019-12-19 | XMS | Encounter Summary ---
Demographics + + + | Address | [address] | | | [place] [address] | + + + | Home Phone [...] [place], [place] | | | | | [address] | | + + + + + | Ellie Vang | ECON | Unknown | | + + + + + Care Team Providers + +------+ + | Care Discovery Manager Name | Role | Phone | + +------+ + | Fadi Goodrich DO | PCP | | + +------+ + Encounter Details +--------+------+ + + + | Date | Type | Department | Care Team | Description | +--------+------+ + + + | 06/16/ | Lab | Laboratory at [facility] | | Morbid obesity with | | 2012 | | [address] | | BMI of 70 and over, | | | | [place], [place] | | adult (HCC); Vitamin | | | | [address] | | D deficiency | | | | [phone] | | disease; | | | | [...] [place] | | | | | | [address] | | | | | | [phone] | | | | | | | [...] | | | | | obesity ([facility]) PCOS | | | | [...] at | | | | | | [employer] | | | | | | developed and | | | | | | characteristics | | | | | | determined by | | | | | | [employer]. See | | | | | | Compliance Statement B: | | | | | | [employer]/CSPerformed | | | | | | by [employer] [facility],[address] | | | | | | [facility] [place], [facility] [place] [facility] [place] | | | | | | [address] | | | | | | [phone].The [employer]. | | | | | | com, [...] B: | | | | | | [employer]/CS | | | | + + + + + + + + | Specimen | + + | Blood - Blood | + + + + + + + | Performing | Address | City/State/Zipcode | Phone Number | | Organization | | | | + + + + + | [facility] | [address] | [place], [place] | | | [facility] | | [address] | | + + + + + [...]
--- OUTSIDE RECORDS SUMMARY | ~2019-12-19 | XMS | Encounter Summary ---
Demographics + + + | Address | [address] | | | [place] [address] | + + + | Home Phone [...] + | Katalina Padilla | ECON | [address] | | | | | [place], [place] | | | | | [address] | | + + + + + | Ellie Vang | ECON | Unknown | | + + + + + Care Team Providers + +------+ + | Care Director Supplier Quality Name | Role | Phone | + [...] evaluation | | 2020 | cheduled | [facility] | | | | | | [facility] | | | | | | [address] [place] | | | | | | Mail Code: OC8PM | | | | | | [facility] | | | | | | and Healing, | | | | | | [address] | | | | | | [place], [place] | | | | | | [address] | | | | | | [phone] | | | +--------+ + + + [...] | | | , POL[place]; Endotracheal | ASSOCIATE PROFESSOR OF SOCIOLOGY | ASSOCIATE PROFESSOR OF SOCIOLOGY | | | Tube; 7.5; Oral; Cuffed; [...] PM PST PREOPERATIVE INSTRUCTIONS Surgery check-in location: [facility] Surgery Check in Time: you will receive a call 1-3 business days before your surgery confi rming your exact arrival/check-in time for your surgery day. We know that planning for surg eileen can be stressful and involve a lot of family/friend/transportation coordination as well as hotel arrangements. The [facility] does not have access to check in [facility], and we encourage you to contact [...] ACID (VITAMIN C) 500 MG TABLET CALCIUM CRB&SRU-H0-OGA23-GENIS ORAL CYANOCOBALAMIN (VIT B-12) 1,000 MCG TABLET [...] ch as Uber/Lyft), or public transportation. An Uber/Lyft/vibratory pile driver does not count as the responsible [...] you and look after you on the [facility] night after you have undergone regional blocks [...] it is after office hours, call the [facility] pulverizer operator at [phone] and ask them to page him or h er. documented in this encounter Plan of Treatment +--------+---------+ + + + | Date | Type | Specialty | Care Team | Description | +--------+---------+ + + + | 03/15/ | Office | Cardiology | Randell Franks, | | | 2019 | Visit | | MD [address] | | | | | | [place] | | | | | | [address] | | | | | | [phone] | | | | | | | | +--------+---------+ + + + documented as of this encounter Visit Diagnoses Not on filedocumented in this encounter
--- OUTSIDE RECORDS SUMMARY | ~2019-12-19 | XMS | Encounter Summary ---
Demographics + + + | Address | [address] | | | [place] [address] | + + + | Home Phone [...] [place], [place] | | | | | [address] | | + + + + + | Ellie Vang | ECON | Unknown | | + + + + + Care Team Providers + +------+ + | Care Winder Fixer Name | Role | Phone | [...] | | | | | Procedures | [place], [place] | [place], [place] | | | | | CONSULT TO | [address] | [address] | | | | | CAR | Phone: | Phone: | | | | | PREVENTATIVE | [phone] | [phone] | | | | | [facility] - | Fax: | Fax: | | | | | LIPIDS | [phone] | [phone] | +--------+--------+ + + + + Encounter Details +--------+---------+ + + + | Date | Type | Department | Care Team | Description | +--------+---------+ + + + | 09/11/ | Office | Cardiology | Olga Lidia Montanez, | Morbid obesity with | | 2017 | Visit | Preventive at [facility] | [address] | BMI of 70 and over, | | | | [address] | [address] | adult (HCC) (Primary | | | | Mailcode: CH9A | [place], [place] | Dx) | | | | [facility] | [address] | | | | | and Healing, | | | | | | Building [address] | | | | | | [place], [place] | | | | | | [address] | | | | | | [phone] | | | +--------+---------+ + + + [...] Olga Lidia Montanez RD, LD [facility] Bariatric department (to reschedule classes): [phone] Goals: 1. Try to stop buying Pop-Tarts 2. Replace afternoon snack (think of this as lunch) with vegetables or fruit -cucumbers, carrots, broccoli, cauliflower, etc. -try making ranch dip w/ nonfat plain yogurt (regular or Micronesian) (or mix yogurt w/ salsa; o r chipotle hot sauce & [place] juice) 3. Snack ideas: -fruit -vegetables (with hummus or yogurt dip) -Micronesian yogurt - light (have w/ fruit if you're still hungry) -applesauce - unsweetened, w/ lowfat string cheese -1/4 cup nuts -lowfat string cheese -low-fat or non-fat cottage cheese w/ tomatoes 4. Aim for 60-80 grams of protein a day (see list) 5. Add Micronesian yogurt to breakfast Heart Protection Kitchen from [facility] Healthy eating made simple. What: FREE heart-healthy cooking demonstrations led by guest care services manager and nutrition experts. Samples are provided! Where: [facility] ([facility]), September, 2nd floor teaching kitchen When: All classes from 11:00am-12:00pm ? October 12 (led by Dr. Paulino Carreno MD) Please contact Keerthi Boyer at [phone] or email at [email or web address] for information on upcoming classes and to register. Space is limited - reserve your seat today! Want more info on what to eat? Watch the [employer] video, "Healthy Eating 101," at [email or web address].com/watch?[email or web address] documented in this encounter Progress Notes Olga Lidia Montanez RD - 09/11/2017 2:30 PM PSTFormatting of this note might be different fro m the original. [facility], Nutrition Consultation Referring provider: Dr. Randell Franks MD Referring diagnosis: obesity, HF, DM2 Visit type: Initial; bnyf-qw-rpik visit with patient Questions/Information desired today: Hoping [...] restarting the bariatric program; getting PT in [place] & has nutrition classes scheduled. Still has bariatric notebooks at home. Per NurseGridbarron message from Dr. Pandey 09/10/17: "Just tell [...] & 1% milk; occ w/ applesauce or Micronesian yogurt No L S (3pm): pop-tart or [...] it's too expensive. Occ fruit bowls from [facility]. Vegetables: every day w/ dinner - usually [...] in PT 2x/week for bariatric program (in [place]) UBW: 385-391 lbs Max weight: 529 lbs Weight history: lost from 495 lbs to 383 lbs in 2181-6261 on Atkins diet ANTHROPOMETRICS: Height: Ht Readings from Last 1 Encounters: 09/11/17 1.549 m (5' 1") Weight: Wt Readings from Last 1 Encounters: 09/11/17 176.5 kg (389 lb 3.2 oz) 11/28/16 179.443 kg (395 lb 10 oz) Body mass index is 73.54 kg/m. Weight change control coordinator the past year: 6 lb wt [...] weight loss; anticipate excellent compliance in the [facility] surgery program. Currently eating energy-dense/nurient-poor foods [...] of protein a day - add light Micronesian yogurt to breakfast; include lean protein with PM snack/lunch 3. D/c carbonated beverages (e.g., diet soda); replace with water, Crystal Light, diet deca f tea, or other calorie-free still beverage Contact information was provided; call or send [employer] message to dietitian with any questi ons. [...] Flannery | | | | | | [place], [place] | | | | | | [address] | | | | | | [phone] | | | | | | | | +--------+---------+ + + + documented as of this encounter Visit Diagnoses + + | Diagnosis | + + | Morbid obesity with BMI of 70 and over, adult (HCC) - Primary | + + documented in this encounter
--- OUTSIDE RECORDS SUMMARY | ~2019-12-19 | XMS | Encounter Summary ---
Demographics + + + | Address | [address] | | | [place] [address] | + + + | Home Phone [...] Organization | [facility] | | | and Jeffana [...] Team Providers + +------+ + | Care Access Assoc Name | Role | Phone | + [...] [address] | | | | | [address] | [place] [facility] [address] | | | | | [place], [place] | [place] [address] | | | | | [address] | [phone] | | | | | [phone] | | | +--------+ + + + [...] RICHEY | | | | | | [place] [address] | | | | | | [phone] | | | | | | | [...] | | to assess segmental wall motion, [place] visually estimates LVEF | | | >70%. [...] assess | | | segmental wall motion, [place] visually estimates LVEF >70%. RV | | [...] not well visualized. MEASUREMENTS | | | Field Sales Trainer: JESSICA Authenticated by: Edson Cruz DO | [...] to assess | | segmental wall motion, [place] visually estimates LVEF >70%. RV grossly NML. [...] | IVC was not well visualized. MEASUREMENTS Field Sales Trainer: HONEYuthenticated by: | | dEson Jones Date/Time: 01-02-2016 19:12:36 IMPRESSION: 1. See Dictation. | | TDS. Sinus. 2. Cardiac chamber dimensions grossly NML. LV systolic and diastolic | | functions grossly NML, unable to assess segmental wall motion, [place] visually estimates | | LVEF >70%. RV [...] | |MEASUREMENTS | | | | | |Field Sales Trainer: JESSICA | |Authenticated by: Edson Cruz DO | |Report Date/Time: 01-02-2016 19:12:36 | | | |IMPRESSION: | |1. See Dictation. TDS. Sinus. 2. Cardiac chamber dimensions grossly NML. LV systolic and diastolic functions grossly NML, unable to assess segmental wall motion, [place] visually es timates LVEF >70%. RV grossly | |NML. 3. Aortic valve sclerotic, no /AI | | observed. Mitral and Tricuspid valves grossly NML, Pulmonic valve not seen well. Trace T R. 4. No Pericardial effusion. 5. IVC not seen well. | + + documented in this encounter Visit Diagnoses Not on filedocumented in this encounter"
--- OUTSIDE RECORDS SUMMARY | ~2019-12-19 | XMS | Encounter Summary ---
Demographics + + + | Address | [address] | | | [place] [address] | + + + | Home Phone [...] [place], [place] | | | | | [address] | | + + + + + | Ellie Vang | ECON | Unknown | | + + + + + Care Team Providers + +------+ + | Care Boiler Room Operator Name | Role | Phone | [...] | | | | | | | [address] | | | | | | | [address] | | | | | | | [place], | | | | | | | [place] | | | | | | | [address] | | | | | | | Phone: | | | | | | | [phone] | | | | | | | Fax: | | | | | | | [phone] | +--------+--------+ + + + + Encounter Details +--------+---------+ + + + | Date | Type | Department | Care Team | Description | +--------+---------+ + + + | 04/14/ | Office | Digestive Health | Hernandez Brian, | Morbid obesity (HCC) | | 2013 | Visit | Center at [facility] [address] | [address] [facility] | (Primary Dx); Type | | | | [address] | [address] | 2 diabetes mellitus | | | | Mailcode: Center | [place], [place] | ([facility]); [facility] | | | | for Health and | [address] | (obstructive sleep | | | | [facility] | [phone] | apnea); Edema | | | | [place], [place] | | | | | | [address] | | | | | | [phone] | | | +--------+---------+ + + + [...] this year, she was tr ansferred from [place] for surgical evaluation of possible incarcerated ventral [...] with close followup by her PCP in [place] in the interim. Dr. Guillory in [place] has been following her since January, with CT scan obtained at [facility] in [place] 02/09/2013 (images in IMP[employer]), demonstrating "recurrent hypogastric [...] to follow up with her providers at [facility] to include a visi t to [...] r weight loss efforts. She saw a manager of sales today and Melida came in to discuss [...] and well perfused. ABDOMEN: Type III pannus mcfp to her knees. There is a well [...] Flannery | | | | | | [place], [place] | | | | | | [address] | | | | | | [phone] | | | | | | | [...]
--- OUTSIDE RECORDS SUMMARY | ~2019-12-19 | XMS | Encounter Summary ---
Demographics + + + | Address | [address] | | | [place] [address] | + + + | Home Phone [...] [place], [place] | | | | | [address] | | + + + + + | Ellie Vang | ECON | Unknown | | + + + + + Care Team Providers + +------+ + | Care Burr Grinder Name | Role | Phone | [...] floor | | | | | | [place], [place] | | | | | | [address] | | | | | | [phone] | | | +--------+------+ + + + [...] [place] | | | | | | [address] | | | | | | [phone] | | | | | | | [...] + | [facility] | [address] [facility] | [place] [address] | | | SERVICES, CORE | PARK [...] [facility] | [address] | [place] [address] | | | LYDIA RANGEL | PARK [...] | + + + + + | [facility] | [address] | [place] [address] | | | SERVICES, SPECIAL | PARK [...]
--- OUTSIDE RECORDS SUMMARY | ~2019-12-19 | XMS | Encounter Summary ---
Demographics + + + | Address | [address] | | | [place] [address] | + + + | Home Phone [...] [place], [place] | | | | | [address] | | + + + + + | Ellie Vang | ECON | Unknown | | + + + + + Care Team Providers + +------+ + | Care Medical Technologist Hematology Name | Role | Phone | + [...] 2012 | | Center at [facility] [address] | MD [address] | | | | | Jacy Flannery | [facility] | | | | | Mailcode: [place] | [place], [place] | | | | | [facility] and | [address] | | | | | [facility] 2 | [phone] | | | | | [place], [place] | | | | | | [address] | | | | | | [phone] | | | +--------+ + + + [...] Flannery | | | | | | [place], [place] | | | | | | [address] | | | | | | [phone] | | | | | | | | +--------+---------+ + + + documented as of this encounter Visit Diagnoses Not on filedocumented in this encounter"
--- OUTSIDE RECORDS SUMMARY | ~2019-12-19 | XMS | Encounter Summary ---
Demographics + + + | Address | [address] | | | [place] [address] | + + + | Home Phone [...] + | Katalina Padilla | ECON | [address] | | | | | [place], [place] | | | | | [address] | | + + + + + | Ellie Vang | ECON | Unknown | | + + + + + Care Team Providers + +------+ + | Care Production Aide Name | Role | Phone | [...] | | | | Jacy Flannery | [facility] | | | | | Mailcode: Center | [place], [place] | | | | | [facility] and | [address] | | | | | [place] [address] | [phone] | | | | | [place], [place] | | | | | | [address] | | | | | | [phone] | | | +--------+ + + + [...] Flannery | | | | | | [place] | | | | | | [address] | | | | | | [phone] | | | | | | | | +--------+---------+ + + + documented as of this encounter Visit Diagnoses Not on filedocumented in this encounter"
--- OUTSIDE RECORDS SUMMARY | ~2019-12-19 | XMS | Encounter Summary ---
Demographics + + + | Address | [address] | | | [place] [address] | + + + | Home Phone [...] [place], [place] | | | | | [address] | | + + + + + | Ellie Vang | ECON | Unknown | | + + + + + Care Team Providers + +------+ + | Care Assistant Education Director Name | Role | Phone | + +------+ + | Fadi Goodrich DO | PCP | | + +------+ + Encounter Details +--------+ + + + + | Date | Type | Department | Care Team | Description | +--------+ + + + + | 06/09/ | Abstract | Cardiology | Randell Franks, | | | 2015 | | Preventive at [facility] | MD [address] | | | | | [address] | [facility] [place] | | | | | Mailcode: CH9A | [address] | | | | | [facility] | [phone] | | | | | and Healing, | | | | | | [address] | | | | | | [facility] [place] | | | | | | [address] | | | | | | [phone] | | | +--------+ + + + [...] | | 2019 | Visit | | [address] | | | | | | [place], [place] | | | | | | [address] | | | | | | [phone] | | | | | | | | +--------+---------+ + + + documented as of this encounter Visit Diagnoses Not on filedocumented in this encounter"
--- OUTSIDE RECORDS SUMMARY | ~2019-12-19 | XMS | Encounter Summary ---
Demographics + + + | Address | [address] | | | [place] [address] | + + + | Home Phone [...] [place], [place] | | | | | [address] | | + + + + + | Ellie Vang | ECON | Unknown | | + + + + + Care Team Providers + +------+ + | Care Compass Operator Name | Role | Phone | [...] | | [address] | [place], [place] | | | | | Mailcode: 9A | [address] | | | | | [facility] | [phone] | | | | | and [facility], | | | | | | [address] | | | | | | [place], [place] | | | | | | [address] | | | | | | [phone] | | | +--------+ + + + [...] Flannery | | | | | | [place], [place] | | | | | | [address] | | | | | | [phone] | | | | | | | | +--------+---------+ + + + documented as of this encounter Visit Diagnoses Not on filedocumented in this encounter"
--- OUTSIDE RECORDS SUMMARY | ~2019-12-19 | XMS | Encounter Summary ---
Demographics + + + | Address | [address] | | | [place] [address] | + + + | Home Phone [...] [place], [place] | | | | | [address] | | + + + + + | Ellie Vang | ECON | Unknown | | + + + + + Care Team Providers + +------+ + | Care Hogshead Mat Assembler Name | Role | Phone | [...] 2020 | | Center at [facility] [address] | MD [address] | | | | | Jacy Flannery | [address] | | | | | Mailcode: Center | [place], [place] | | | | | [facility] and | [address] | | | | | [facility] 2 | [phone] | | | | | [place], [place] | | | | | | [address] | | | | | | [phone] | | | +--------+ + + + [...] [place] | | | | | | [address] | | | | | | [phone] | | | | | | | | +--------+---------+ + + + documented as of this encounter Visit Diagnoses Not on filedocumented in this encounter"
--- OUTSIDE RECORDS SUMMARY | ~2019-12-19 | XMS | Encounter Summary ---
Demographics + + + | Address | [address] | | | [place] [address] | + + + | Home Phone [...] [place], [place] | | | | | [address] | | + + + + + | Ellie Vang | ECON | Unknown | | + + + + + Care Team Providers + +------+ + | Care Silk Screen Printer Helper Name | Role | Phone [...] floor | | | | | | [place], [place] | | | | | | [address] | | | +--------+ + + + [...] [place] | | | | | | [address] | | | | | | [phone] | | | | | | | | +--------+---------+ + + + documented as of this encounter Visit Diagnoses Not on filedocumented in this encounter"
--- OUTSIDE RECORDS SUMMARY | ~2019-12-19 | XMS | Encounter Summary ---
Demographics + + + | Address | [address] | | | [place] [address] | + + + | Home Phone [...] [place], [place] | | | | | [address] | | + + + + + | Ellie Vang | ECON | Unknown | | + + + + + Care Team Providers + +------+ + | Care Back Feeder Plywood Layup Line Name | Role | Phone | + [...] floor | | | | | | [place], [place] | | | | | | [address] | | | +--------+ + + + [...] Flannery | | | | | | [place], [place] | | | | | | [address] | | | | | | [phone] | | | | | | | | +--------+---------+ + + + documented as of this encounter Visit Diagnoses Not on filedocumented in this encounter"
--- OUTSIDE RECORDS SUMMARY | ~2019-12-19 | XMS | Encounter Summary ---
Demographics + + + | Address | [address] | | | [place] [address] | + + + | Home Phone [...] | Organization | [facility] | | [...] Team Providers + +------+ + | Care Electromechanical Assembler Name | Role | Phone | + +------+ + PCP | Unavailable | + +------+ + Encounter Details +--------+ + + + + | Date | Type | Department | Care Team | Description | +--------+ + + + + | 11/20/ | Orders Only | [facility] | Conversion | | | 2017 | | NEPHROLOGY JESUS | Transaction, | | | | | [address] | Provider Unknown | | | | | [address] | | | | | | [address] | (Fax) | | | | | [phone] | | | +--------+ + + + [...] RICHEY | | | | | | [place] [address] | | | | | | [phone] | | | | | | | [...]
--- OUTSIDE RECORDS SUMMARY | ~2019-12-19 | XMS | Encounter Summary ---
Demographics + + + | Address | [address] | | | [place] [address] | + + + | Home Phone [...] Organization | [facility] | | | and [...] Team Providers + +------+ + | Care Windmill Technician Name | Role | Phone | + +------+ + PCP | Unavailable | + +------+ + Encounter Details +--------+ + + + + | Date | Type | Department | Care Team | Description | +--------+ + + + + | 12/07/ | Orders Only | [facility] | Conversion | | | 2019 | | NEPHROLOGY JESUS | Transaction, | | | | | [address] | Provider Unknown | | | | | [address] | | | | | | [address] | (Fax) | | | | | [phone] | | | +--------+ + + + [...] RICHEY | | | | | | [place] [address] | | | | | | [phone] | | | | | | | [...] | | | LAB | | | [facility]LAND[facility] | | | | | + +-------+ [...]
--- OUTSIDE RECORDS SUMMARY | ~2019-12-19 | XMS | Encounter Summary ---
Demographics + + + | Address | [address] | | | [place] [address] | + + + | Home Phone [...] Organization | [facility] | [...] Team Providers + +------+ + | Care Lay Out Drafter Name | Role | Phone | [...] Encounter | CONVERSION [address] | [place] [address] | | | | | [address] | [address] | | | | | [place], [place] | [place] [address] | | | | | [address] | [phone] | | | | | [phone] | | | +--------+ + + + [...] | | | | | [place] [address] | | | | | | [phone] | | | | | | | | +--------+---------+ + + + documented as of this encounter Visit Diagnoses Not on filedocumented in this encounter"
--- OUTSIDE RECORDS SUMMARY | ~2019-12-19 | XMS | Encounter Summary ---
Demographics + + + | Address | [address] | | | [place] [address] | + + + | Home Phone [...] [place], [place] | | | | | [address] | | + + + + + | Ellie Vang | ECON | Unknown | | + + + + + Care Team Providers + +------+ + | Care Radiation Therapy Technician Name | Role | Phone | + +------+ + | Fadi Goodrich DO | PCP | | + +------+ + Encounter Details +--------+ + + + + | Date | Type | Department | Care Team | Description | +--------+ + + + + | 10/19/ | Abstract | Digestive Health | Clinic, Surgery | | | 2017 | | [place] [facility] [address] | | | | | | [address] | | | | | | Mailcode: [place] | | | | | | [facility] and | | | | | | [facility] 2 | | | | | | [place], [place] | | | | | | [address] | | | | | | [phone] | | | +--------+ + + + [...] Flannery | | | | | | [place], [place] | | | | | | [address] | | | | | | [phone] | | | | | | | | +--------+---------+ + + + documented as of this encounter Visit Diagnoses Not on filedocumented in this encounter"
--- OUTSIDE RECORDS SUMMARY | ~2019-12-19 | XMS | Encounter Summary ---
Demographics + + + | Address | [address] | | | [place] [address] | + + + | Home Phone [...] [place], [place] | | | | | [address] | | + + + + + | Ellie Vang | ECON | Unknown | | + + + + + Care Team Providers + +------+ + | Care Belting And Webbing Inspector Name | Role | Phone | + +------+ + | Kenyatta Cardenas MD | PCP | | + +------+ + Encounter Details +--------+ + + + + | Date | Type | Department | Care Team | Description | +--------+ + + + + | 03/02/ | Vegetable Preparer | Digestive Health | Ke[place], | | | 2019 | | Center at [facility] [address] | AGACNP [address] | | | | | [address] | Ave [facility] [place] | | | | | Mailcode: [place] | [address] | | | | | for Health and | | | | | | [facility] 2 | | | | | | [place], [place] | | | | | | [address] | | | | | | | [...] Flannery | | | | | | [place], [place] | | | | | | [address] | | | | | | [phone] | | | | | | | | +--------+---------+ + + + documented as of this encounter Visit Diagnoses Not on filedocumented in this encounter"
--- OUTSIDE RECORDS SUMMARY | ~2019-12-19 | XMS | Encounter Summary ---
Demographics + + + | Address | [address] | | | [place] [address] | + + + | Home Phone [...] [place], [place] | | | | | [address] | | + + + + + | Ellie Vang | ECON | Unknown | | + + + + + Care Team Providers + +------+ + | Care Rn International Name | Role | Phone | + [...] | Tiny, | | | | | [place] EST | Fadi Person DO | MD Randell | | | | | PATIENT | [address] | [address] | | | | | [address] | Ave | | | | | | [place], | [place], [place] | | | | | | [place] [address] | [address] | | | | | | Phone: | Phone: | | | | | | [phone] | [phone] | | | | | | Fax: | Fax: | | | | | | [phone] | [phone] | +--------+--------+ + + + + Encounter Details +--------+---------+ + + + | Date | Type | Department | Care Team | Description | +--------+---------+ + + + | 04/03/ | Office | Cardiology | Randell Franks, | Morbid obesity (HCC) | | 2014 | Visit | Preventive at [facility] | [address] | (Primary Dx); Type | | | | [address] | [place], [place] | 2 diabetes mellitus | | | | Mailcode: CH9A | [address] | without complication | | | | [facility] | [phone] | ([facility]) | | | | and [address], | | | | | | [address] | | | | | | [place], [place] | | | | | | [address] | | | | | | [phone] | | | +--------+---------+ + + + [...] 500 mg by mouth once daily. CALCIUM CRB&[id number]-[id number]-GEK01-GENIS ORAL Take 1 tablet by mouth two [...] documented, but if we use her last [facility] weight of 410 lbs, this would put her at 360 lbs before consideration for RYGBP. She is working with the bariatric surgery sustainable agriculture faculty to try to achieve this. She states [...] visit Diet: healthy, working with [employer] faculty Exercise: "I walk everywhere." ROS: No CP, [...] Flannery | | | | | | [place], [place] | | | | | | [address] | | | | | | [phone] | | | | | | | | +--------+---------+ + + + documented as of this encounter Visit Diagnoses + + | Diagnosis | + + | Morbid obesity (HCC) - Primary Morbid obesity | + + | Type 2 diabetes mellitus without complication (HCC) | + + documented in this encounter
--- OUTSIDE RECORDS SUMMARY | ~2019-12-19 | XMS | Encounter Summary ---
Demographics + + + | Address | [address] | | | [place] [address] | + + + | Home Phone [...] [place], [place] | | | | | [address] | | + + + + + | Ellie Vang | ECON | Unknown | | + + + + + Care Team Providers + +------+ + | Care Medical Payment Poster Name | Role | Phone | [...] [facility] [address] | ACNP [address] | | | | | [address] | Ave [place], [place] | | | | | Mailcode: [place] | [address] | | | | | for Health and | | | | | | [facility] 2 | | | | | | [facility] [place] | | | | | | [address] | | | | | | | [...] Flannery | | | | | | [place], [place] | | | | | | [address] | | | | | | [phone] | | | | | | | | +--------+---------+ + + + documented as of this encounter Visit Diagnoses Not on filedocumented in this encounter"
--- OUTSIDE RECORDS SUMMARY | ~2019-12-19 | XMS | Encounter Summary ---
Demographics + + + | Address | [address] | | | [place] [address] | + + + | Home Phone [...] + | Katalina Padilla | ECON | [address] | | | | | [place], [place] | | | | | [address] | | + + + + + | Ellie Vang | ECON | Unknown | | + + + + + Care Team Providers + +------+ + | Care Appliance Fixer Name | Role | Phone | [...] | 2012 | | Center at [facility] [address] | REEL FED PRINTER [address] | | | | | [address] | [facility] 350 | | | | | Mailcode: Center | [place], [place] | | | | | [facility] Health and | [address] | | | | | [facility] 2 | [phone] | | | | | [place], [place] | | | | | | [address] | | | | | | [phone] | | | +--------+ + + + [...] Flannery | | | | | | [place], [place] | | | | | | [address] | | | | | | [phone] | | | | | | | | +--------+---------+ + + + documented as of this encounter Visit Diagnoses Not on filedocumented in this encounter"
--- OUTSIDE RECORDS SUMMARY | ~2019-12-19 | XMS | Encounter Summary ---
[...] + | Katalina Padilla | ECON | [address] | | | | | [place], [place] | | | | | [address] | | + + + + + | Ellie Vang | ECON | Unknown | | + + + + + Care Team Providers + +------+ + | Care Line Painting Machine Operator Name | Role | Phone [...] | | [address] | [place], [place] | | | | | Mailcode: [place] | [address] | | | | | for Health and | | | | | | [place] [address] | | | | | | [place], [place] | | | | | | [address] | | | | | | [phone] | | | +--------+ + + + [...] Flannery | | | | | | [place], [place] | | | | | | [address] | | | | | | [phone] | | | | | | | | +--------+---------+ + + + documented as of this encounter Visit Diagnoses Not on filedocumented in this encounter"
--- OUTSIDE RECORDS SUMMARY | ~2019-12-19 | XMS | Encounter Summary ---
Demographics + + + | Address | [address] | | | [place] [address] | + + + | Home Phone [...] [place], [place] | | | | | [address] | | + + + + + | Ellie Vang | ECON | Unknown | | + + + + + Care Team Providers + +------+ + | Care Bisque Cleaner Name | Role | Phone | [...] | 2016 | | Preventive at [facility] | MD [address] | | | | | [address] | [place], [place] | | | | | Mailcode: CH9A | [address] | | | | | [facility] | [phone] | | | | | and Healing, | | | | | | Building [address] | | | | | | [facility] [place] | | | | | | [address] | | | | | | [phone] | | | +--------+ + + + [...] Flannery | | | | | | [place], [place] | | | | | | [address] | | | | | | [phone] | | | | | | | | +--------+---------+ + + + documented as of this encounter Visit Diagnoses Not on filedocumented in this encounter"
--- OUTSIDE RECORDS SUMMARY | ~2019-12-19 | XMS | Encounter Summary ---
Demographics + + + | Address | [address] | | | [place] [address] | + + + | Home Phone [...] + | Katalina Padilla | ECON | [address] | | | | | [place], [place] | | | | | [address] | | + + + + + | Ellie Vang | ECON | Unknown | | + + + + + Care Team Providers + +------+ + | Care Rail Operations Controller Name | Role | Phone | [...] | | | | | | | [place] for | | | | | | | Health and | | | | | | | Healing, | | | | | | | [address] | | | | | | | [place], [place] | | | | | | | [address] | | | | | | | Phone: | | | | | | | [phone] | | | | | | | Fax: | | | | | | | [phone] | +--------+--------+ + + + + Encounter Details +--------+---------+ + + + | Date | Type | Department | Care Team | Description | +--------+---------+ + + + | 08/28/ | Office | Digestive Health | [address] | Morbid obesity (HCC) | | 2015 | Visit | Center at [facility] [address] | [address] | (Primary Dx); Type | | | | [facility] | [address] [facility], | 2 diabetes mellitus | | | | for Health and | [place] [address] | (HCC) | | | | [facility], [facility] 2 | | | | | | [place], [place] | | | | | | [address] | | | | | | [phone] | | | +--------+---------+ + + + [...] of Visit: 12:29 to 12:57 (28 minutes sadv-vi-ptos with patient) SUBJECTIVE: Trying to follow a [...] post-surgery diet progression. 4. Call or send Web [employer]ic[employer] message to dietitian with any questions. Contact information was provided. Follow up with dietitian prior to surgery to review post-surgical recommendations. Yuli Childs RD, CNSC, LD Pager# [phone] documented in this enco unter Plan of Treatment +--------+---------+ + + + | Date | Type | Specialty | Care Team | Description | +--------+---------+ + + + | 03/15/ | Office | Cardiology | Randell Franks, | | | 2019 | Visit | | [address] | | | | | | [place], [place] | | | | | | [address] | | | | | | [phone] | | | | | | | | +--------+---------+ + + + documented as of this encounter Procedures + +--------+ + + + | Procedure Name | Priori | Date/Time | Associated Diagnosis | Comments | | | ty | | | | + +--------+ + + + | [place] MNT RE-ASSESSMNT | Routin | 08/28/2014 | Morbid obesity | | | X15MIN | e | 4:45 PM | ([facility]) Type 2 | | | | | PST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 | | | | | | ([facility]) | | + +--------+ + + + documented in this encounter Visit Diagnoses + + | Diagnosis | + + | Morbid obesity ([facility]) - Primary Morbid obesity | + + | Type 2 diabetes mellitus ([facility]) Type II or unspecified type diabetes mellitus without | | mention of complication, not stated as uncontrolled | + + documented in this encounter
--- OUTSIDE RECORDS SUMMARY | ~2019-12-19 | XMS | Encounter Summary ---
Demographics + + + | Address | [address] | | | [place] [address] | + + + | Home Phone [...] [place], [place] | | | | | [address] | | + + + + + | Ellie Vang | ECON | Unknown | | + + + + + Care Team Providers + +------+ + | Care Radio Repairman Name | Role | Phone | + [...] | | 2019 | | Preventive at [facility] | MD [address] | re-test? ) | | | | [address] | [place], [place] | | | | | Mailcode: [place] | [address] | | | | | [facility] | [phone] | | | | | and [address], | | | | | | [address] | | | | | | [place], [place] | | | | | | [address] | | | | | | [phone] | | | +--------+ + + + [...] [place] | | | | | | [address] | | | | | | [phone] | | | | | | | [...]
--- OUTSIDE RECORDS SUMMARY | ~2019-12-19 | XMS | Encounter Summary ---
Demographics + + + | Address | [address] | | | [place] [address] | + + + | Home Phone [...] [place], [place] | | | | | [address] | | + + + + + | Ellie Vang | ECON | Unknown | | + + + + + Care Team Providers + +------+ + | Care Bar Host/Hostess Name | Role | Phone | + [...] [facility] [address] | [address] | (11/03 and 11/06 phone | | | | [address] [facility] | Lesly Gutiérrez [place], | calls) | | | | for Health and | [place] [address] | | | | | [facility] 2 | | | | | | [place], [place] | | | | | | [address] | | | | | | [phone] | | | +--------+ + + + [...] Flannery | | | | | | [place], [place] | | | | | | [address] | | | | | | [phone] | | | | | | | | +--------+---------+ + + + documented as of this encounter Visit Diagnoses Not on filedocumented in this encounter"
--- OUTSIDE RECORDS SUMMARY | ~2019-12-19 | XMS | Encounter Summary ---
Demographics + + + | Address | [address] | | | [place] [address] | + + + | Home Phone [...] [place], [place] | | | | | [address] | | + + + + + | Ellie Vang | ECON | Unknown | | + + + + + Care Team Providers + +------+ + | Care Stock Clipper Name | Role | Phone | + [...] | | 2020 | | Preventive at [facility] | MD [address] | | | | | [address] | [place], [place] | | | | | Mailcode: CH9A | [address] | | | | | [facility] | [phone] | | | | | and [facility], | | | | | | Building 1 | | | | | | [facility] [place] | | | | | | [address] | | | | | | [phone] | | | +--------+ + + + [...] [place] | | | | | | [address] | | | | | | [phone] | | | | | | | | +--------+---------+ + + + documented as of this encounter Visit Diagnoses Not on filedocumented in this encounter"
--- OUTSIDE RECORDS SUMMARY | ~2019-12-19 | XMS | Encounter Summary ---
Demographics + + + | Address | [address] | | | [place] [address] | + + + | Home Phone [...] [place], [place] | | | | | [address] | | + + + + + | Ellie Vang | ECON | Unknown | | + + + + + Care Team Providers + +------+ + | Care Network Contract Manager Name | Role | Phone | + +------+ + | Kenyatta aCrdenas MD | PCP | | + +------+ [...] | | 2019 | | Center at [facility] [address] | AGACNP [address] | | | | | [address] | [place], [place] | | | | | Mailcode: [place] | [address] | | | | | for [facility] and | | | | | | [place] [address] | | | | | | [place], [place] | | | | | | [address] | | | | | | | [...] Flannery | | | | | | [place] | | | | | | [address] | | | | | | [phone] | | | | | | | | +--------+---------+ + + + documented as of this encounter Visit Diagnoses Not on filedocumented in this encounter"
--- OUTSIDE RECORDS SUMMARY | ~2019-12-19 | XMS | Encounter Summary ---
Demographics + + + | Address | [address] | | | [place] [address] | + + + | Home Phone [...] + | Katalina Padilla | ECON | [address] | | | | | [place], [place] | | | | | [address] | | + + + + + | Ellie Vang | ECON | Unknown | | + + + + + Care Team Providers + +------+ + | Care Rock Splitter Name | Role | Phone | [...] | | [address] | [place], [place] | | | | | Mailcode: [place] | [address] | | | | | for Health and | [phone] | | | | | [facility] 2 | | | | | | [place], [place] | | | | | | [address] | | | | | | [phone] | | | +--------+ + + + [...] Flannery | | | | | | [place], [place] | | | | | | [address] | | | | | | [phone] | | | | | | | | +--------+---------+ + + + documented as of this encounter Visit Diagnoses Not on filedocumented in this encounter"
--- OUTSIDE RECORDS SUMMARY | ~2019-12-19 | XMS | Clinical Summary ---
Demographics + + + | Address | [address] | | | [place] [address] | + + + | Home Phone [...] + | Author | [facility] [employer] (Historical as of | | | 03-12-19) | + + + | Organization | [facility] [employer] (Historical as of | | | 03-12-19) [...] + +------+ + | Care Back Tender Pulp Drier Name | Role | Phone | + [...] | | | Activ | | (DRISDOL) [address] | mouth twice a week. | | [...] | obesity, she is enrolled in the [facility] bariatric program. She has | | [...] obesityPickwickian syndrome Recent | | admission to [facility] for 100lb weight | | gain- DC on diuresis on 03/06/2016- she feel improvedShe was on | | Metolazone and Torsemide prior to hospitalization- both have | | better bioavailability than lasix in gut edema but she retained | | 100lbs - how ever she is currently on only Torsemide 100mg Q12hrs | | started in [place] and her weight been stable sinceShe has no | | other complaints.She is pending to see NephrologistCiriloo | | 02/16/2016([facility])- Normal LV systolic function, mildly | [...] +------+-------+ + | MEDICAID | [place] | [id number] | | | [address] | | | N | | | | [place] | | | [place] | | | | [address] | | | CIRCUIT RECORDER | | | | | + +--------+ [...] | | | mireya | | | [address] | [address] | + +--------+ +--------+ + +
--- OUTSIDE RECORDS SUMMARY | ~2019-12-19 | XMS | Encounter Summary ---
Demographics + + + | Address | [address] | | | [place] [address] | + + + | Home Phone [...] [place], [place] | | | | | [address] | | + + + + + | Ellie Vang | ECON | Unknown | | + + + + + Care Team Providers + +------+ + | Care Parlor Chaperone Name | Role | Phone | + [...] Diabetes & | Morbid | Kathy M, TALENT DEVELOPMENT DIRECTOR | [address] | | | | Metabolism | obesity | [address] | Pavilion | | | | | (HCC) | [address], | Loop | | | | | Procedures | [address] | Physician's | | | | | CONSULT TO | [facility] [place] | Pavilion | | | | | ENDO | [address] | Physician's | | | | | [address] | Phone: | Pavilion | | | | | [address] | [phone] | [place], [place] | | | | | | Fax: | [address] | | | | | | [phone] | Phone: | | | | | | | [phone] | | | | | | | Fax: | | | | | | | [phone] | +--------+--------+ + + + + Encounter [...] | | | Center at Physicians | [place], [place] | ([facility]) (Primary Dx); | | | | [address] | [address] | Type 2 diabetes | | | | [address] | [phone] | mellitus ([facility]); [facility] | | | | Physician's Pavilion | | (obstructive sleep | | | | Physician's | | apnea); Morbid | | | | Pavilion [place], | | obesity ([facility]); | | | | [place] [address] | | Edema; GERD | | | | [phone] | | (gastroesophageal | | | | [...] Goodrich DO Referring physician: Kathy Feldman, KALYAN [address] [place] [address] HPI: Dylan is a 38 y.o. female [...] 9 CREATININE PLASMA (LAB) 0.71 EGFR - JORDANIAN >60 EGFR NON -JORDANIAN >60 GLUCOSE, PLASMA (LAB) 113 (H) CALCIUM, [...] | | 2019 | Visit | | [address] | | | | | | [place], [place] | | | | | | [address] | | | | | | [phone] | | | | | | | [...] + +--------+ + + + | [place] COLLECTION | Routin | 04/14/2013 | DM [...] + | KALEYORIN Gil LANEYKAMILLA | [address] [facility] [address] | [place], [place] | | | JUSTINE DAWN OF JAKY | [address] | [address] | | | TESTS | | | [...]
--- OUTSIDE RECORDS SUMMARY | ~2019-12-19 | XMS | Encounter Summary ---
Demographics + + + | Address | [address] | | | [place] [address] | + + + | Home Phone [...] [place], [place] | | | | | [address] | | + + + + + | Ellie Vang | ECON | Unknown | | + + + + + Care Team Providers + +------+ + | Care Supervisor Carpenters Name | Role | Phone | + [...] Diabetes & | Morbid | Kathy M, SITE PROMOTION AGENT | [address] | | | | Metabolism | obesity | [address] | Pavilion | | | | | (HCC) | [address], | Loop | | | | | Procedures | [address] | Physician's | | | | | CONSULT TO | [place], [place] | Pavilion | | | | | ENDO | [address] | Physician's | | | | | [address] | Phone: | Pavilion | | | | | | [phone] | [place], [place] | | | | | | Fax: | [address] | | | | | | [phone] | Phone: | | | | | | | [phone] | | | | | | | Fax: | | | | | | | [phone] | +--------+--------+ + + + + Encounter [...] | | | Center at Physicians | [place], [place] | (Primary Dx); Morbid | | | | [address] | [address] | obesity (HCC) | | | | [address] | [phone] | | | | | Physician's Pavilion | | | | | | Physician's | | | | | | Pavilion [place], | | | | | | [place] [address] | | | | | | [phone] | | | +--------+---------+ + + + [...] [address]ann[address] | | | | | | [place], [place] | | | | | | [address] | | | | | | [phone] | | | | | | | [...]
--- OUTSIDE RECORDS SUMMARY | ~2019-12-19 | XMS | Encounter Summary ---
Demographics + + + | Address | [address] | | | [place] [address] | + + + | Home Phone [...] [place], [place] | | | | | [address] | | + + + + + | Ellie Vang | ECON | Unknown | | + + + + + Care Team Providers + +------+ + | Care Steam Press Tender Name | Role | Phone | [...] [address] | | | | | | [place], [place] | | | | | | [address] | | | | | | [phone] | | | | | | | | +--------+---------+ + + + documented as of this encounter Visit Diagnoses Not on filedocumented in this encounter"
--- OUTSIDE RECORDS SUMMARY | ~2019-12-19 | XMS | Encounter Summary ---
Demographics + + + | Address | [address] | | | [place] [address] | + + + | Home Phone [...] [place], [place] | | | | | [address] | | + + + + + | Ellie Vang | ECON | Unknown | | + + + + + Care Team Providers + +------+ + | Care Music Director Name | Role | Phone | [...] | Office | Plastic and | Archie bYarra MD | Excess skin of | | 2019 | Visit | Reconstructive | [address] | abdomen (Primary Dx) | | | | Surgery at [facility] [address] | [place], [place] | | | | | [address] | [address] | | | | | Mailcode: [facility] | [phone] | | | | | [facility] | | | | | | and Healing, | | | | | | Building [address], | | | | | | Floor [place], [place] | | | | | | [address] | | | | | | [phone] | | | +--------+---------+ + + + [...] Andie Brian Incisional hernia repair 03/01/2015 [facility]/ Dr. Cantu. 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 CALCIUM [id number]-GENIS ORAL Take 2 tablets by mouth two [...] Flannery | | | | | | [place], [place] | | | | | | [address] | | | | | | [phone] | | | | | | | | +--------+---------+ + + + documented as of this encounter Visit Diagnoses + + | Diagnosis | + + | Excess skin of abdomen - Primary Unspecified hypertrophic and atrophic condition of | | skin | + + documented in this encounter
--- OUTSIDE RECORDS SUMMARY | ~2019-12-19 | XMS | Encounter Summary ---
Demographics + + + | Address | [address] | | | [place] [address] | + + + | Home Phone [...] [place], [place] | | | | | [address] | | + + + + + | Ellie Vang | ECON | Unknown | | + + + + + Care Team Providers + +------+ + | Care Acetone Button Paster Name | Role | Phone | [...] [place] | | | | | | [address] | | | | | | [phone] | | | | | | | | +--------+---------+ + + + documented as of this encounter Visit Diagnoses Not on filedocumented in this encounter"
--- OUTSIDE RECORDS SUMMARY | ~2019-12-19 | XMS | Encounter Summary ---
Demographics + + + | Address | [address] | | | [place] [address] | + + + | Home Phone [...] [place], [place] | | | | | [address] | | + + + + + | Ellie Vang | ECON | Unknown | | + + + + + Care Team Providers + +------+ + | Care Archivist Military History Name | Role | Phone | [...] | | | | | [place], [place] | | | | | | [address] | | | | | | [phone] | | | +--------+ + + + [...] Flannery | | | | | | [place], [place] | | | | | | [address] | | | | | | [phone] | | | | | | | | +--------+---------+ + + + documented as of this encounter Visit Diagnoses Not on filedocumented in this encounter"
--- OUTSIDE RECORDS SUMMARY | ~2019-12-19 | XMS | Encounter Summary ---
Demographics + + + | Address | [address] | | | [place] [address] | + + + | Home Phone [...] [place], [place] | | | | | [address] | | + + + + + | Ellie Vang | ECON | Unknown | | + + + + + Care Team Providers + +------+ + | Care Desktop Analyst Name | Role | Phone | + +------+ + | Kenyatta Cardenas MD | PCP | | + +------+ + Encounter Details +--------+ + + + + | Date | Type | Department | Care Team | Description | +--------+ + + + + | 03/01/ | Procedure | Diagnostic Imaging | | | | 2019 | Pass | Services at [facility] | | | | | | [address] | | | | | | Lesly [place] | | | | | | [facility], [address] [place] [address] | | | | | | [place], [place] | | | | | | [address] | | | | | | [phone] | | | +--------+ + + + [...] Flannery | | | | | | [place], [place] | | | | | | [address] | | | | | | [phone] | | | | | | | | +--------+---------+ + + + documented as of this encounter Visit Diagnoses Not on filedocumented in this encounter"
--- OUTSIDE RECORDS SUMMARY | ~2019-12-19 | XMS | Encounter Summary ---
Demographics + + + | Address | [address] | | | [place] [address] | + + + | Home Phone [...] [place], [place] | | | | | [address] | | + + + + + | Ellie Vang | ECON | Unknown | | + + + + + Care Team Providers + +------+ + | Care Clinic Nurse Name | Role | Phone | [...] | 2019 | | Preventive at [facility] | MD [address] | (PHENTERMINE 37.5 mg | | | | [address] | [place], [place] | oral tablet); | | | | Mailcode: [place] | [phone] | Refill Request | | | | [facility] | [phone] | | | | | and [place], | | | | | | [address] | | | | | | [place], [place] | | | | | | [address] | | | | | | [phone] | | | +--------+--------+ + + + [...] Flannery | | | | | | [place], [place] | | | | | | [address] | | | | | | [phone] | | | | | | | | +--------+---------+ + + + documented as of this encounter Visit Diagnoses Not on filedocumented in this encounter"
--- OUTSIDE RECORDS SUMMARY | ~2019-12-19 | XMS | Encounter Summary ---
Demographics + + + | Address | [address] | | | [place] [address] | + + + | Home Phone [...] [place], [place] | | | | | [address] | | + + + + + | Ellie Vang | ECON | Unknown | | + + + + + Care Team Providers + +------+ + | Care Publishing Director Name | Role | Phone | [...] | REPAIR | | | | [facility] | [address] | | | | | Hospital Admitting | [place], [place] | | | | | Desk Located on the | [address] | | | | | 9th floor | [phone] | | | | | [place], [place] | | | | | | [address] | | | +--------+---------+ + + + [...] the gallo. 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 She di d have difficulty [...] condition. She will follow up at the [facility] with Dr. Tiwari in 2- 3 weeks. [...] by mouth once daily at bedtime. CALCIUM CRB&[id number]-[id number]-GENIS ORAL Take 2 tablets by mouth two [...] daily. 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 oxycodone, hydrocodone, Vicodin, [place], Percocet, Dilaudid) as needed. However, Vicodin/[place] and Percocet contain acetam inophen in the [...] Narcotic-opioid pain medications (e.g. oxycodone, hydrocodone, Vicodin, [place], Percocet, Di laudid) can be constipating, therefore you should take a stool softener on the same day as s tarting your narcotic pain medicine. Options include: Milk of Magnesia: 2 Tablespoons Twice daily Colace (=Docusate): 1 pill Twice daily Miralax: 1 Tablespoon (17 grams) daily (check bottle for mixing instructions) While these are some recommendations, any obvr-ras-rcfzqvh stool softener should work, and generics are [...] and plan of care. JONES TIWARI MD [facility] [address] [place] [address] documented in this encounter Discharge Instructions Discharge [...] hours by calling the surgery office at [phone]. After hours, weekends and holidays, you may call the hospital electrocardiograph operator at [phone] and have the senior economist [facility] for general surgery paged. Discharge Instr [...] the gallo. 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 She did have dif ficulty [...] She will follow up at the [facility] with Dr. Tiwari in weeks. She [...] the prescribed narcotic-opioid (e.g. oxycodone, hydrocodone, Vicodin, [place], Percocet, Dilaudid) as needed. However, Vicodin/[place] and Percocet contain acetam inophen in the [...] Narcotic-opioid pain medications (e.g. oxycodone, hydrocodone, Vicodin, [place], Percocet, Di laudid) can be constipating, therefore you should take a stool softener on the same day as s tarting your narcotic pain medicine. Options include: Milk of Magnesia: 2 Tablespoons Twice daily Colace (=Docusate): 1 pill Twice daily Miralax: 1 Tablespoon (17 grams) daily (check bottle for mixing instructions) While these are some recommendations, any qqni-aee-lmnqsdm stool softener should work, and generics are fine to use. Increase your fluids, especially your intake of water Increase your activity. Walk frequently. ANTICOAGULATION: We recommend you make an appointment to be seen in your local anticoagulation clinic on Thu08/25/19 to recheck your INR and for ongoing management of your warfarin. FOLLOW-UP: Please call Dr. Tiwari's office ([phone]) to schedule a follow-up appointment for 2-3 [...] | | 0 | | | | [id number]-GEN | mouth two times | | | [...] + + +---------+ + + | thyroid (DIESEL POWERPLANT MECHANIC HELPER | Take 30 mg by mouth | [...] assist PRN. Anticipate discharge michelle Chandler MD [facility], PGY-1 Green Mission Manager Pager: [phone] signed by Jones Tiwari MD at 08/22/2019 [...] dc in 2-3 days Gadiel Chandler MD [facility], PGY-1 Green Mission Manager Pager: [phone] Associated attestation - Jones Tiwari MD - 08/21/2019 9:57 AM PSTI performed a hist ory and physical examination of the patient and discussed her management with the resident. I reviewed the resident s note and agree with the documented findings and plan of care. JONES TIWARI MD [facility] [address] [place] [address] Valencia Zamora MD - 08/20/2019 8:42 AM [...] well. - ruiz out today - dc ASSEMBLER FLEXIBLE LEADS - ppx lovenox today - therapeutic lovenox [...] care -Multimodal pain control Joselyn Everett MD [facility] General Surgery PGY1 [id number] Gadiel Armstrong MD - 08/19/2019 12:34 PM [...] hernia repair with mesh Gadiel Chandler MD [facility], PGY-1 Green Mission Manager Pager: [phone] documented in this encounter Plan of Treatment +--------+---------+ + + + | Date | Type | Specialty | Care Team | Description | +--------+---------+ + + + | 03/15/ | Office | Cardiology | Aly Franks, | | | 2019 | Visit | | [address] | | | | | | [place], [place] | | | | | | [address] | | | | | | [phone] | | | | | | | [...] [facility] | [address] | [place] [address] | | | SERVICES, CORE | [address] [...] [facility] | [address] | [place] [address] | | | SERVICES, CORE | [address] | | | + + + + + INR (08/22/2019 10:09 AM PST) + +-------+ + + + | Component | Value | Ref Range | Performed | Pathologist | | | | | At | Signature | + +-------+ + + + | INR | 1.08 | 0.90 - 1.20 INR | [facility] | | | | | | [...] | + + + + + | [facility] | [address] | [place] [address] | | | SERVICES, CORE | [address] [...] - [facility] | [address] | [place], [place] | | | [place] POINT OF CARE | [address] | [address] | | | TESTS | | | [...] [facility] | [address] | [place], [place] | | | [place] POINT OF CARE | [address] | [address] | | | TESTS | | | [...] [facility] | [address] | [place] [address] | | | SERVICES, | [address] [...] | + + + + + | [facility] | [address] | [place] [address] | | | SERVICES, | [address] [...] [facility] | [address] | [place], [place] | | | JUSTINE DAWN OF JAKY | [facility] | [address] | | | TESTS | | | [...] | [facility] | | | [facility] | [place] performed by | | LABORATORY | | [...] [facility] | [address] | [place] [address] | | | SERVICES, CORE | CLARENCE [...] | + + + + + | [employer] [facility] | [address] | [place] [address] | | | SERVICES, | [address] [...] | + + + + + | [facility] | [address] | [place] [address] | | | SERVICES CORE | CLARENCE [...] [facility] | [address] | [place] [address] | | | LYDIA RANGLE | [address] | | | + [...] | + + + + + | [facility] | [address] [facility] | [place] [address] | | | SERVICES, LYDIA | [address] [...] [facility] | [address] | [place] [address] | | | SERVICES, CORE | PARK [...] | + + + + + | [facility] | [address] [facility] | [place] [address] | | | SERVICES, LYDIA | [address] | | | + + + + + ED INFORMATION EXCHANGE (08/18/2019 1:47 PM PST) + + | Specimen | + + | | + + + + + | Narrative | Performed At | + + + | COLLECTIVE?NOTIFICATION?08/18/2019 13:47?DYLAN ROMERO?MRN: | COLLECTIVE | | [id number] Criteria Met 5 Visits In 12 Months Has | MEDICAL | | Guidelines PDMP Security and Safety No recent Security Events | [employer] | | currently on file ED Care Guidelines from [employer] [facility] | | | Last Updated: 12/06/18 9:53 AM Care Coordination: Receiving | | | mental health services with [employer].? Please contact [employer] for | | | mental health concerns.? [facility]: [phone]? | | | Kishan: [phone].? These are guidelines and the provider | | | should exercise clinical judgment when providing care. Care | | | History Medical/Surgical 05/24/19 12:00 AM [facility] | | | Hospital PATIENT HAS AN APT ON 06/16/[address] HYLTON. | | | 05/11/19 12:00 AM [facility] Patient is | | | currently established with [facility]. If patient is seen in | | | the ED during business hours. Please contact CHWs at [facility] | | | Clinic. Care [...] care. 08/23/18 12:00 AM | | | [facility] PATIENT HAS A PCP APT TO ESTABLISH | | | CARE ON 10/04/18 @ 10:00AM WITH DR HYLTON. Flags | | | [place] Dis[place] | | | [place]) to help support Medicaid members with mental | | | illness. [facility] uses claims data with a 36-month [...] | are updated weekly. / Attributed By: [facility] (PRA) / | | | Attributed On: 08/09/2019 [...] JONES DAVISON JR. 0 2019-06-28 FENTANYL 12 | | [...] | | | mo.) Facility Visits [facility] 1 [facility] and | | | [facility] 2 [facility] 7 Total 10 Note: | | | Visits indicate total known visits. Recent Emergency Department | | | Visit Summary Date Facility City State Type Diagnoses or Chief | | | Complaint Aug 18, 2019 [facility] [place] | | | [place] Emergency 10,800. amr Jun 25, 2019 [facility] | | | [place] Emergency half-way (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 | | | Anxiety disorder, unspecified Cellulitis of abdominal wall | | | Acute embolism and thrombosis of deep veins of r up extrem | | | Nicotine dependence, unspecified, uncomplicated Migraine, unsp, | | | not intractable, without status migrainosus Unspecified | | | abdominal pain Allergy status to oth drug/meds/biol subst status | | | Other long-term (current) drug therapy Allergy status to | | | penicillin Jun 19, 2019 [facility] 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 [place] Emergency Headache Allergy | | | status to penicillin Anxiety disorder, unspecified | | | Obesity, unspecified Migraine, unsp, not intractable, without | | | status migrainosus Other continuous churn buttermaker (current) drug therapy | | | Allergy status to oth drug/meds/biol subst status half-way | | | (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 half-way (current) use of | | | aspirin May 23, 2019 [facility] 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 | | | [place] Emergency Generalized abdominal pain Allergy | | | status to oth drug/meds/biol subst status Unspecified abdominal | | | pain Anxiety disorder, unspecified Other chronic pain | | | Allergy status to penicillin half-way (current) use of | | | aspirin Prsnl hx of TIA (TIA), and cereb infrc w/o resid | | | deficits Other long-term (current) drug therapy May 13, | | | 2019 [facility] and [facility] [place] Emergency | | | 10,800. A303 18,400. Bariatric surgery status 18,400. | | | Ventral hernia without obstruction or gangrene 18,400. Nausea | | | with vomiting, unspecified 18,400. Unspecified abdominal pain | | | 18,400. Nonspecific mesenteric lymphadenitis May 10, 2019 [facility] | | | [place] [facility] [place] Emergency Nausea with vomiting, | | | unspecified Solitary pulmonary nodule Anxiety disorder, | | | unspecified Ventral hernia without obstruction or gangrene | | | Unspecified abdominal pain Diarrhea, unspecified Allergy | | | status to oth drug/meds/biol subst status Prsnl hx of TIA (TIA), | | | and cereb infrc w/o resid deficits Other continuous churn buttermaker (current) | | | drug therapy Allergy status to penicillin [facility] 03[facility] 2018 [facility] [place] [facility] RIGHT LEG PAIN DUE TO FALL | | | Strain of unsp musc/tend at lower leg level, right leg, init | | | Aug 22, 2018 [facility] [place] [facility] [place] Emergency Other | | | continuous churn buttermaker (current) drug therapy Upper abdominal pain, | | | unspecified Bariatric surgery status Allergy status to oth | | | drug/meds/biol subst status Noninfective gastroenteritis and | | | colitis, unspecified Obesity, unspecified Anxiety | | | disorder, unspecified half-way (current) use of aspirin | | | Allergy status to penicillin Personal history of pulmonary | | | embolism Recent Inpatient Visit Summary No recorded | | | inpatient visits. Care Team Provider Specialty Phone Fax Service | | | Dates Eagle Nino CHW Community Health Worker | | | Jul 03, 2019 - Current JONES DAVISON D.M.D. Dentist: | | | Pipe And Boiler Covers Supervisor May 23, 2019 - | | | Current Rob Tilley Spring Assembler/Data Processing Supervisor [phone] | | | [phone] Mar 27, 2018 - Current Bernard Hylton MD Internal | | | Medicine: Pulmonary Disease Aug 23, 2018 - Current | | | [employer] Portal This patient has registered at the [facility] | | | [facility] Emergency Department For more information | | | visit: | | | [email or web address] | | | [email or web address] a PLEASE NOTE: 1. Any care recommendations [...] or completeness of information provided. ? 2020 [employer] | | | [email or web address] - [email or web address] | | + + + + + [...] on fileED Care Guidelines | | from [employer] - [place] Updated: 12/06/18 9:53 AM Care Coordination:Receiving | | mental health services with [employer].? Please contact [employer] for mental health | | concerns.? Sarah/Toni Centeno: [phone]? Kishan: [phone].?These are | | guidelines and the provider should exercise clinical judgment when providing care.Care | | HistoryMedical/Fxzhgwrn17/29/19 12:00 AM [facility] PATIENT HAS AN APT | | ON 06/16/[address] HYLTON.05/11/19 12:00 AM [facility] Patient is | | currently established with [facility]. If patient is seen in the ED during | | business hours. Please contact CHWs at [facility].Care Recommendation:This | | patient has had 5 [...] providing | | care.08/23/18 12:00 AM [facility] PATIENT HAS A PCP APT TO ESTABLISH CARE | | ON 10/04/18 @ 10:00AM WITH DR HYLTON. [place] Dispar[place] - [place] has | | developed a flag ([place] Dispar[place]) to help support Medicaid members with | | mental illness. [facility] uses claims data with a 36-month [...] | | updated weekly. / Attributed By: [facility] (PRA) / Attributed On: | | 08/09/2019 Prescription [...] E.D. Visit Count (12 mo.)Facility Visits [facility] 1 [facility] | [facility] 2 [facility] 7 Total 10 Note: Visits indicate | | total known visits. Recent Emergency Department Visit SummaryDate Facility City State | | Type Diagnoses or Chief Complaint Aug 18, 2019 [facility] | | [place] Emergency 10,800. amr Jun 25, 2019 [facility] [place] Emergency | | half-way (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 Anxiety disorder, unspecified | | Cellulitis of abdominal wall Acute embolism and thrombosis of deep veins of r up | | extrem Nicotine dependence, unspecified, uncomplicated Migraine, unsp, not | | intractable, without status migrainosus Unspecified abdominal pain Allergy status | | to oth drug/meds/biol subst status Other continuous churn buttermaker (current) drug therapy Allergy | | status to penicillin Jun 19, 2019 [facility]. 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 [place] 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 | | 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 Emergency | | 10,800. [...] infrc w/o resid | | deficits Other long-term (current) drug therapy Allergy status to penicillin May | | 2018 [facility]. [place] Emergency RIGHT LEG PAIN DUE TO FALL | | Strain of unsp musc/tend at lower leg level, right leg, init Aug 22, [address] [facility] [facility] [place] Emergency Other continuous churn buttermaker (current) drug therapy Upper | | abdominal pain, unspecified Bariatric surgery status Allergy status to oth | | drug/meds/biol subst status Noninfective gastroenteritis and colitis, unspecified | | Obesity, unspecified Anxiety disorder, unspecified half-way (current) use of | | aspirin Allergy status to penicillin Personal history of pulmonary embolism | | Recent Inpatient Visit SummaryNo recorded inpatient visits. Care TeamProvider Specialty | | Phone Fax Service Dates Eagle Nino CHW Community Health Worker | | Jul 03, 2019 - Current JONES DAVISON D.M.D. Dentist: Pipe And Boiler Covers Supervisor [phone] | | [phone] May 23, 2019 - Current Rob Tilley Spring Assembler/Care | | Coordinator Mar 27, 2018 - Current Bernard Hylton MD Internal Medicine: | | Pulmonary Disease Aug 23, 2018 - Current [employer] [facility] patient has registered | | at the [facility] and [facility] [place] Emergency Department For more information | | visit: [email or web address] | | PLEASE NOTE: 1. Any care [...] completeness of information | | provided.? 2020 [employer]. - [email or web address] | | Allergy status to oth drug/meds/biol subst status | | Other long-term (current) drug therapy | | Allergy status to penicillin | | | |Jun 19, [address] [facility] [place] [place] Emergency | | half-way (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 | | Prsnl [...] unspecified | | | |Jun 01, [address] [facility] 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 Emergency | | 10,800. A303 | | 18,400. Bariatric surgery status | | 18,400. Ventral hernia without obstruction or gangrene | | 18,400. Nausea with vomiting, unspecified | | 18,400. Unspecified abdominal pain | | 18,400. Nonspecific mesenteric lymphadenitis | | | |May 10, 2019 [facility] [place] Emergency | | Nausea with vomiting, unspecified | | Solitary pulmonary nodule | | Anxiety disorder, unspecified | | Ventral hernia without obstruction or gangrene | | Unspecified abdominal pain | | Diarrhea, unspecified | | Allergy status to oth drug/meds/biol subst status | | Prsnl hx of TIA (TIA), and cereb infrc w/o resid deficits | | Other long-term (current) drug therapy | | Allergy status to penicillin | | | |December 03, 2018 [facility]. [place] Emergency | | RIGHT LEG PAIN DUE TO FALL | | Strain of unsp musc/tend at lower leg level, right leg, init | | | |Aug 22, [address] [facility] [place]. 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 | | | |Care Team | |Provider Specialty Phone Fax Service Dates | |Eagle Nino CHW Community Health Worker Jul 03, 2019 - Current | |JONES DAVISON D.M.D. Dentist: Pipe And Boiler Covers Supervisor May 23, 2 019 - Current | |Rob Tilley Spring Assembler/Data Processing Supervisor Mar 27, 2018 - Current | |Bernard Hylton MD Internal Medicine: Pulmonary Disease Aug 23, 2018 - Current | | | |[employer] Portal | |This patient has registered at the [facility] and [facility] [place] [facility]art[facility] t | |For more information visit: [email or web address] | |PLEASE NOTE: | | 1. Any [...] information provided. | | | |? 2020 [employer] - [email or web address] | + + + + + + + | Performing | Address | City/State/Zipcode | Phone Number | | Organization | | | | + + + + + | [employer] | [address] | [place], [place] | [phone] | | TECHNOLOGIES | [address] | [address] | | + + + + + [...] | | First dose on [facility] 08/18/19 at | | PM PST | [...] | | First dose on [facility] 08/18/19 at | | AM PST | [...]
--- OUTSIDE RECORDS SUMMARY | ~2019-12-19 | XMS | Encounter Summary ---
Demographics + + + | Address | [address] | | | [place] [address] | + + + | Home Phone [...] + | Katalina Padilla | ECON | [address] | | | | | [place], [place] | | | | | [address] | | + + + + + | Ellie Vang | ECON | Unknown | | + + + + + Care Team Providers + +------+ + | Care Valet Parking Attendant Name | Role | Phone | [...] | | | | [address] | [place], [place] | | | | | Physicians [place], | [address] | | | | | 2nd Floor | [phone] | | | | | [place], [place] | | | | | | [address] | | | | | | [phone] | | | +--------+---------+ + + + [...] Dr. Andie Brian Incisional hernia repair 02/2015 [facility]/ Dr. Cantu PHYSICAL EXAMINATION: BP 133/63 | [...] GENERAL SURGERY AT [facility] [address] [facility] Mailcode: [address] [place] [address] documented in this encounter Plan of Treatment +--------+---------+ + + + | Date | Type | Specialty | Care Team | Description | +--------+---------+ + + + | 03/15/ | Office | Cardiology | Randell Franks, | | | 2019 | Visit | | [address] | | | | | | [place], [place] | | | | | | [address] | | | | | | [phone] | | | | | | | | +--------+---------+ + + + documented as of this encounter Visit Diagnoses + + | Diagnosis | + + | Incarcerated incisional hernia - Primary Incisional hernia with obstruction | + + documented in this encounter"
--- OUTSIDE RECORDS SUMMARY | ~2019-12-19 | XMS | Encounter Summary ---
Demographics + + + | Address | [address] | | | [place] [address] | + + + | Home Phone [...] [place], [place] | | | | | [address] | | + + + + + | Ellie Vang | ECON | Unknown | | + + + + + Care Team Providers + +------+ + | Care Plasterer Spray Gun Name | Role | Phone | + +------+ + | Fadi Goodrich DO | PCP | | + +------+ + Encounter Details +--------+ + + + + | Date | Type | Department | Care Team | Description | +--------+ + + + + | 06/02/ | Telephone | Digestive Health | Ronna Clarke, | | | 2018 | | Center at [facility] [address] | ACNP [address] | | | | | [address] | Ave [place], [place] | | | | | Mailcode: [place] | [address] | | | | | for Health and | [phone] | | | | | [facility] [address] | | | | | | [place], [place] | | | | | | [address] | | | | | | | [...] [place] | | | | | | [address] | | | | | | [phone] | | | | | | | | +--------+---------+ + + + documented as of this encounter Visit Diagnoses Not on filedocumented in this encounter"
--- OUTSIDE RECORDS SUMMARY | ~2019-12-19 | XMS | Encounter Summary ---
Demographics + + + | Address | [address] | | | [place] [address] | + + + | Home Phone [...] [place], [place] | | | | | [address] | | + + + + + | Ellie Vang | ECON | Unknown | | + + + + + Care Team Providers + +------+ + | Care Rejector Name | Role | Phone | + [...] | [address] | Lesly Guti[place]rez [place], | | | | | Mailcode: CH[address]A | [place] [address] | | | | | [place], [place] | | | | | | [address] | | | | | | [phone] | | | +--------+ + + + [...] [place] | | | | | | [address] | | | | | | [phone] | | | | | | | | +--------+---------+ + + + documented as of this encounter Visit Diagnoses Not on filedocumented in this encounter"
--- OUTSIDE RECORDS SUMMARY | ~2019-12-19 | XMS | Encounter Summary ---
Demographics + + + | Address | [address] | | | [place] [address] | + + + | Home Phone [...] [place], [place] | | | | | [address] | | + + + + + | Ellie Vang | ECON | Unknown | | + + + + + Care Team Providers + +------+ + | Care Orchid Transplanter Name | Role | Phone | + [...] | | | | | obesity | [place], [place] | | | | | | (HCC) | [address] | | | | | | Procedures | Phone: | | | | | | PHYSICAL | | | | | | | THERAPY | Fax: | | | | | | REFERRAL | [phone] | | +--------+--------+ + + + + Encounter Details +--------+ + + + + | Date | Type | Department | Care Team | Description | +--------+ + + + + | 06/22/ | Car Shifter | Digestive Health | Ion Pandey, | Pre-op evaluation | | 2016 | | Center at [facility] [address] | [address] | (Primary Dx); Morbid | | | | [address] | [place], [place] | obesity (HCC) | | | | Mailcode: Center | [address] | | | | | for Health and | | | | | | Healing, Building [address] | | | | | | [place], [place] | | | | | | [address] | | | | | | [phone] | | | +--------+ + + + [...] | | | | | | [place], [place] | | | | | | [address] | | | | | | [phone] | | | | | | | | +--------+---------+ + + + documented as of this encounter Visit Diagnoses + + | Diagnosis | + + | Pre-op evaluation - Primary Preoperative examination, unspecified | + + | Morbid obesity (HCC) Morbid obesity | + + documented in this encounter"
--- OUTSIDE RECORDS SUMMARY | ~2019-12-19 | XMS | Encounter Summary ---
Demographics + + + | Address | [address] | | | [place] [address] | + + + | Home Phone [...] [place], [place] | | | | | [address] | | + + + + + | Ellie Vang | ECON | Unknown | | + + + + + Care Team Providers + +------+ + | Care Director Of Contracts Name | Role | Phone | + [...] | REPAIR | | | | [facility] | [address] | | | | | Hospital Admitting | [place], [place] | | | | | Des Located on the | [address] | | | | | 9th floor | [phone] | | | | | [place], [place] | | | | | | [address] | | | +--------+---------+ + + + [...] port site who was transferre d to [facility] for concern of an [...] mouth once daily. , Historical Med CALCIUM CRB&TDN-[id number]-GENIS ORAL Take 1 tablet by mouth two [...] 10:40 AM Randell Franks Cardiology Preventive at [facility] [phone] Cardiology 04/09/2015 1:00 PM [facility] Tra Trauma Emergency General Surgery at [facility] [phone] [facility] Outstanding labs/studies: None Discharging Physician: GABO LANGSTON MD Attending Physician: Dr. Cantu PCP: Fadi Goodrich DO Signed: GABO LANGSTON MD Pager #[phone] Surgical Polisher Numeral [facility] Associated attestation - Tye Carrillo DO - 03/12/2015 9:12 AM PDTAttending: I discussed this patient with the resident and agree with the assessment and plan as outlin ed in this note and participated in the planning of care. Tye Carrillo DO, SIDRA, FACS Division of Trauma, Critical Care & Acute Care Surgery [facility] [phone] documented in this encounter Medications at Time of Discharge + + + +---------+--------+ + | Medication | Sig | Dispensed | Refills | Start | End Date | | | | | | Date | | + + + +---------+--------+ + | CALCIUM | Take 2 tablets by | | 0 | | | | CRB&XTD-N9-SRO31-GEN | mouth two times | | | [...] might be differ ent from the original. [facility] DEPARTMENT OF SURGERY EMERGENCY GENERAL SURGERY [...] obesity with known ventral hernias transferred to [facility] for surgical managem ent of ventral hernia, now s/p repair. Post surgical pain: -patient ready for d/c, discussed f/u. Patient lives far away and has other appointments at [facility]. Will attempt to coordinate appointments. Discharge Plan: D/c today GABO LANGSTON MD Pager #[phone] Surgical Polisher Numeral [facility] Salomón William Md - 03/02/2015 1:[address] [facility] [facility] [...] and kn own ventral hernias transferred to [facility] for surgical treatment of [...] obesity with known ventral hernias transferred to [facility] for surgical managem ent [...] will be robel ing her home to [place], [place]. CALVIN ROMERO MD PGY-1 Anesthesiology Pager: [phone] [facility] A [address] [facility] [address] Karthik Oneill MD - 03/02/2015 8:26 AM [id number] Calvin William Md - 03/01/2015 5:34 PM PDT Brief Post Operative Note: 40 F PMH morbid obesity (BMI 71 today), DM2, depression, GERD, h/o stroke at age 18, and kn own ventral hernias transferred to [facility] for surgical treatment of [...] control CALVIN ROMERO MD PGY-1 Anesthesiology Pager: [phone] signed by Calvin Romero Md at 03/01/2015 5:41 PM PDTdocumente d in this encounter Plan of Treatment +--------+---------+ + + + | Date | Type | Specialty | Care Team | Description | +--------+---------+ + + + | 03/15/ | Office | Cardiology | Randell Franks, | | | 2019 | Visit | | [address] | | | | | | [place], [place] | | | | | | [address] | | | | | | [phone] | | | | | | | [...] | | Attending Surgeon: Shahid Cantu MD Router Setter(s): Howie Angeles MD, R5 | | Karthik [...] 03/02/2015 08:25:39DT: 03/02/2015 09:15:57Job #: | | [id number] | | | |Dr. Chris Cantu was present and scrubbed for the entirety of the case. | | | | | | | |Karthik Gonzalez MD | | | |Pursuant to federal Medicare and Medicaid regulations I was present for the entire procedur e. | | | | | | | |Shahid Cantu MD | |Head Soft Sugar Operator | |Trauma, Critical Care & Acute Care Surgery | | | | | | | |Shahid Cantu MD | |TBK/MODL | | | | | | /[id number] | + ---+ CAPILLARY BLOOD GLUCOSE (NO [...] AMES | [address] | [place], [place] | | | JUSTINE DAWN OF JAKY | [address] | [address] | | | TESTS | | | [...] MARQUAM | [address] | [place], [place] | | | JUSTINE DAWN OF CARE | [address] | [address] | | | TESTS | | | [...] - MARQUAM | [address] | [place], [place] | | | JUSTINE DAWN OF CARE | [address] | [address] | | | TESTS | | | [...] AMES | [address] | [place], [place] | | | JUSTINE DAWN OF JAKY | [address] | [address] | | | TESTS | | | [...] MARQUAM | [address] | [place], [place] | | | JUSTINE DAWN OF CARE | [address] | [address] | | | TESTS | | | [...] - KWAKU | [address] | [place], [place] | | | L[place]PEZ POINT OF CARE | [address] | [address] | | | TESTS | | | [...] LABORATORY | [address] | [place] [address] | | | SERVICES, CORE | CLARENCE [...] | | | LABORATORY | | | [place] | | | SERVICES, | | | [...] + + | [facility] | [address] [facility] | [place] [address] | | | CLAIRE, LYDIA | CLARENCE [...] MARQUAM | [address] | [place], [place] | | | HILL, POINT OF CARE | [address] | [address] | | | TESTS | | | [...] MARQUAM | [address] | [place], [place] | | | JUSTINE DAWN OF JAKY | [facility] | [address] | | | TESTS | | | [...] AMES | [address] | [place], [place] | | | L[place]PE[place] POINT OF CARE | [address] | [address] | | | TESTS | | | [...] MARQUAM | [address] | [place], [place] | | | JUSTINE DAWN OF CARE | [facility] | [address] | | | TESTS | | | [...] MARPATAM | [address] | [place], [place] | | | JUSTINE DAWN OF [facility] | [address] | [address] | | | TESTS | | | [...] HOSPITAL LABORATORY | [address] | [place] [address] | | | LYDIA RANGEL | CLARENCE [...] AMES | [address] | [place], [place] | | | JUSTINE DAWN OF [facility] | [address] | [address] | | | TESTS | | | [...] | | | | | PRN, Starting [facility] 03/01/15 at 1143, | | | | | | | Until [facility] 03/01/15 at 1207 | | | | | | + +--------+ +-------+------+ + +---+---+ | | | +---+---+ documented in this encounter
--- OUTSIDE RECORDS SUMMARY | ~2019-12-19 | XMS | Encounter Summary ---
Demographics + + + | Address | [address] | | | [place] [address] | + + + | Home Phone [...] + | Katalina Padilla | ECON | [address] | | | | | [place], [place] | | | | | [address] | | + + + + + | Ellie Vang | ECON | Unknown | | + + + + + Care Team Providers + +------+ + | Care Cutting Machine Fixer Name | Role | Phone | + +------+ + | Fadi Goodrich DO | PCP | | + +------+ + Encounter Details +--------+------+ + + + | Date | Type | Department | Care Team | Description | +--------+------+ + + + | 11/28/ | Lab | Laboratory at [facility] | | Essential | | 2017 | | [address] | | hypertension; Right | | | | [place], [place] | | heart failure (HCC); | | | | [address] | | Type 2 diabetes | | | | [phone] | | mellitus without | | | [...] [address]annery | | | | | | [place], [place] | | | | | | [address] | | | | | | [phone] | | | | | | | [...] | | | | use of insulin ([facility]) | | + +--------+ + [...] | | | | use of insulin ([facility]) | | + +--------+ + + + | TSH | Routin | 11/28/2016 | Essential | Results for this | | | e | 10:53 AM | hypertension Right | procedure are in the | | | | PDT | heart failure ([facility]) | results section. | | [...] | | | PDT | heart failure ([facility]) | results section. | | | | | Type 2 diabetes | | | | | | mellitus without | | | | | | complication, with | | | | | | long-term current | | | | | | use of insulin ([facility]) | | + +--------+ + [...] | + + + + + | [facility] | [address] | [place] [address] | | | SERVICES, CORE | CLARENCE [...] | + + + + + | [facility] | [address] [facility] | [place], [place] | | | SERVICES, LIPID | [address] | [address] | | + + + + + [...] glycated albumin should be considered for monitoring truck terminal manager | LABORATORY | | glycemic control in [...] + + + | [facility] | [address] | [place] [address] | | | SERVICES, SPECIAL | CLARENCE [...] | + + + + + | [facility] | [address] | [place] [address] | | | CLAIRE, LYDIA | CLARENCE [...]
--- OUTSIDE RECORDS SUMMARY | ~2019-12-19 | XMS | Encounter Summary ---
Demographics + + + | Address | [address] | | | [place] [address] | + + + | Home Phone [...] [place], [place] | | | | | [address] | | + + + + + | Ellie Vang | ECON | Unknown | | + + + + + Care Team Providers + +------+ + | Care Retail Analyst Name | Role | Phone | [...] | | | | [facility] | [facility] | | | | | [facility] Admitting | [place] [address] | | | | | Desk Located on the | [phone] | | | | | 9th floor | | | | | | [place], [place] | | | | | | [address] | | | +--------+ + + + [...] Flannery | | | | | | [place], [place] | | | | | | [address] | | | | | | [phone] | | | | | | | [...]
--- OUTSIDE RECORDS SUMMARY | ~2019-12-19 | XMS | Encounter Summary ---
Demographics + + + | Address | [address] | | | [place] [address] | + + + | Home Phone [...] [place], [place] | | | | | [address] | | + + + + + | Ellie Vang | ECON | Unknown | | + + + + + Care Team Providers + +------+ + | Care Crew Chief Name | Role | Phone | [...] Floor | | | | | | [facility] and | [place], [place] | | | | | | Healing, | [address] | | | | | | Building [address] | Phone: | | | | | | [place], [place] | [phone] | | | | | | [address] | Fax: | | | | | | Phone: | [phone] | | | | | | [phone] | | | | | | | Fax: | | | | | | | [phone] | | +--------+--------+ + + + + [...] | | | | Health and | [place], [place] | | | | | | Healing, | [address] | | | | | | Building 2 | Phone: | | | | | | [place], [place] | [phone] | | | | | | [address] | Fax: | | | | | | Phone: | [phone] | | | | | | [phone] | | | | | | | Fax: | | | | | | | [phone] | | +--------+--------+ + + + + Encounter Details +--------+ + + + + | Date | Type | Department | Care Team | Description | +--------+ + + + + | 10/07/ | Hospital | Radiology/Imaging | | | | 2012 | Encounter | Lab at [facility] [address] | | | | [address] Mailcode: | | | | | | [facility] | | [facility] Healing, | | | | | | Building 1, 3rd | | | | | | Floor [place], [place] | | | | | | [address] | | | | | | [phone] | | | +--------+ + + + [...] Flannery | | | | | | [place], [place] | | | | | | [address] | | | | | | [phone] | | | | | | | [...] | + +---------+ + + | [facility]PART[facility] OF | | | | | [...] + + | [facility]DE[facility] | [address] [facility] [address] | [place] [address] | | | OF CARE TESTS | | | | + + + + + documented in this encounter Visit Diagnoses + + | Diagnosis | + + | Hernia Hernia of unspecified site of abdominal cavity without mention of obstruction | | or gangrene | + + documented in this encounter"
--- OUTSIDE RECORDS SUMMARY | ~2019-12-19 | XMS | Encounter Summary ---
Demographics + + + | Address | [address] | | | [place] [address] | + + + | Home Phone [...] | Organization | [facility] [...] Providers + +------+ + | Care Supervisor Clam Bed Name | Role | Phone | + +------+ + PCP | Unavailable | + +------+ + Encounter Details +--------+ + + + + | Date | Type | Department | Care Team | Description | +--------+ + + + + | 02/16/ | Orders Only | [facility] | Sulema Altamirano | | | 2017 | | CONVERSION [address] | Toshia, CASH APPLICATIONS CLERK [address] | | | | | [address] | [place] | | | | | [place], [place] | [place] [address] | | | | | [address] | [phone] | | | | | [phone] | (Fax) | | +--------+ + + [...] RICHEY | | | | | | [place] [address] | | | | | | [phone] | | | | | | | [...] 5.71 | | | RAP: 5 mmHg Jalousies Installer: JESSICA Authenticated by: BENJY | | | [...] cmLVPWd: 0.81 | | cmLVOT Area: 3.98 jj4TEAE Diam: 2.25 cm%FS: 32.91 %EF(Teich): 61.28 | [...] (A-L): 20.64 ml/m2LAAs A2C: 14.37 | | hq1IDYHK A-L A2C: 40.74 mlLALs A2C: 4.30 cmLAAs A4C: 16.09 pp1NNJNC A-L A4C: | | 43.02 mlLALs A4C: 5.10 cmRAAs: 13.58 gx4PXMWG A-L: 33.08 mlRAESV MOD: 32.14 | | mlRALs: 4.73 cmTAPSE: 2.16 cmAV maxP.33 mmHgAV meanP.31 mmHgAV Vmax: | | 1.60 m/Genesis Vmean: 1.08 m/Genesis VTI: 25.19 cmAVA Vmax: 2.75 cm2AVA (VTI): 3.06 | | eq6IWHQ Vmax: 0.00 cm2/m2AVAI (VTI): 0.00 cm2/m2LVOT maxP.93 mmHgLVOT meanPG: | | 2.50 mmHgLVSI Dopp: 34.92 ml/m2LVSV Dopp: 77.18 mlLVOT Vmax: 1.11 m/sLVOT Vmean: | | 0.73 m/sLVOT VTI: 19.34 cmMV A Jeffrey: 0.81 m/sMV DecT: 249.81 msMV E Jeffrey: 0.82 | | m/sMV E/A Ratio: 1.01MV PHT: 72.44 msMVA By PHT: 3.03 sh4Ghnbbo e': 0.07 | | m/sSeptal E/e': 11.80Lateral e': 0.14 m/sLateral E/e': 5.71RAP: 5 mmHg | | Jalousies Installer: DHAuthenticated by: Shirley SILVER Date/Time: 02-16-2017 18:47:15 [...] | |RAP: 5 mmHg | | | |Jalousies Installer: JESSICA | |Authenticated by: BENJY HANKINS MD [...]
--- OUTSIDE RECORDS SUMMARY | ~2019-12-19 | XMS | Encounter Summary ---
Demographics + + + | Address | [address] | | | [place] [address] | + + + | Home Phone [...] [place], [place] | | | | | [address] | | + + + + + | Ellie Vang | ECON | Unknown | | + + + + + Care Team Providers + +------+ + | Care Mud Tank Operator Name | Role | Phone [...] | | | | | | | [place] for | | | | | | | Health and | | | | | | | Healing, | | | | | | | Building [address] | | | | | | | [place], [place] | | | | | | | [address] | | | | | | | Phone: | | | | | | | [phone] | | | | | | | Fax: | | | | | | | [phone] | +--------+--------+ + + + + Encounter Details +--------+---------+ + + + | Date | Type | Department | Care Team | Description | +--------+---------+ + + + | 06/16/ | Office | Digestive Health | Olga Lidia Montanez, | Morbid obesity (HCC) | | 2012 | Visit | Center at [facility] [address] | [address] [facility] | (Primary Dx); Type | | | | [facility] | [address] | 2 diabetes mellitus | | | | [facility] and | [place], [place] | (HCC) | | | | [place] [address] | [address] | | | | | [place], [place] | | | | | | [address] | | | | | | [phone] | | | +--------+---------+ + + + [...] of Visit: 10:06 to 10:32 (26 minutes iaqk-xa-xppj with patient & friend) SUBJECTIVE: Is surprised she has gained weight; is disappointed. Still following her usual meal plan. H as d/c'd diet soda. Still struggling w/ eating out of boredom - choosing 100 kcal snacks but having ~3 of them at a time. Not as much emotional eating lately. Has been keeping food log s (on paper) - avg 1221-4366 kcal/d. Trying to increase activity. B: Atkins [...] provided. Olga Lidia Montanez RD, [place] Pager [phone] documented in this en counter Plan of Treatment +--------+---------+ + + + | Date | Type | Specialty | Care Team | Description | +--------+---------+ + + + | 03/15/ | Office | Cardiology | Randell Franks, | | | 2019 | Visit | | MD [address] | | | | | | [place], [place] | | | | | | [address] | | | | | | [phone] | | | | | | | [...]
--- OUTSIDE RECORDS SUMMARY | ~2019-12-19 | XMS | Encounter Summary ---
Demographics + + + | Address | [address] | | | [place] [address] | + + + | Home Phone [...] + | Katalina Padilla | ECON | [address] | | | | | [place], [place] | | | | | [address] | | + + + + + | Ellie Vang | ECON | Unknown | | + + + + + Care Team Providers + +------+ + | Care Director Oncology Name | Role | Phone | + [...] from Patient; | | 2017 | | [place] [address] | MD [address] | Postoperative | | | | Ave Mailcode: CH[facility]S | [place], [place] | infection | | | | [facility] | [address] | | | | | and Healing, | [phone] | | | | | [place] [address] [facility] | | | | | | [place], [place] | | | | | | [address] | | | | | | [phone] | | | +--------+ + + + [...] [place] | | | | | | [address] | | | | | | [phone] | | | | | | | | +--------+---------+ + + + documented as of this encounter Visit Diagnoses Not on filedocumented in this encounter"
--- OUTSIDE RECORDS SUMMARY | ~2019-12-19 | XMS | Encounter Summary ---
Demographics + + + | Address | [address] | | | [place] [address] | + + + | Home Phone [...] [place], [place] | | | | | [address] | | + + + + + | Ellie Vang | ECON | Unknown | | + + + + + Care Team Providers + +------+ + | Care Library Technical Assistant Name | Role | Phone [...] Flannery | | | | | | [place], [place] | | | | | | [address] | | | | | | [phone] | | | | | | | | +--------+---------+ + + + documented as of this encounter Visit Diagnoses Not on filedocumented in this encounter"
--- OUTSIDE RECORDS SUMMARY | ~2019-12-19 | XMS | Encounter Summary ---
Demographics + + + | Address | [address] | | | [place] [address] | + + + | Home Phone [...] + | Katalina Padilla | ECON | [address] | | | | | [place], [place] | | | | | [address] | | + + + + + | Ellie Vang | ECON | Unknown | | + + + + + Care Team Providers + +------+ + | Care Composite Laminator Name | Role | Phone | + +------+ + | Fadi Goodrich DO | PCP | | + +------+ + Encounter Details +--------+------+ + + + | Date | Type | Department | Care Team | Description | +--------+------+ + + + | 05/27/ | Lab | Laboratory at [facility] | | History of Frandy-en-Y | | 2017 | | [address] | | gastric bypass; | | | | [place], [place] | | Ventral hernia | | | | [address] | | without obstruction | | | | [phone] | | or gangrene; Mixed | | [...] [place] | | | | | | [address] | | | | | | [phone] | | | | | | | [...] [place] [facility] | [address] | [place] [address] | | | SERVICES, CORE | PARK [...] + + + + + | [facility] [employer] | [address] | [place] [address] | | | LYDIA RANGEL | CLARENCE [...] [facility] | | considered for monitoring terminal operations supervisor glycemic control in patients with: | [...] FOR CHILDREN | [address] | [place] [address] | | | SERVICES, SPECIAL | PARK [...] | | | | | determined by [employer] | | | | | | Laboratories. See | | | | | | Compliance Statement B: | | | | | | [employer] | | | | | | by [employer],[address] | | | | | | [facility],[place] | | | | | | [phone] | | | | | | [phone]. | | | | | | com, [...] | [facility] | | [id number] | | + + + + + [...] [facility] | [address] | [place] [address] | | | SERVICES, CORE | PARK [...] [facility] | [address] | [place] [address] | | | SERVICES, CORE | PARK [...] [facility] | [address] | [place] [address] | | | SERVICES, CORE | PARK [...] [facility] | [address] | [place] [address] | | | SERVICES, CORE | PARK [...] [facility] | [address] | [place] [address] | | | SERVICES, CORE | PARK [...] [facility] | [address] | [place] [address] | | | SERVICES, LYDIA | CLARENCE [...]
--- OUTSIDE RECORDS SUMMARY | ~2019-12-19 | XMS | Clinical Summary ---
Demographics + + + | Address | [address] | | | [place] [address] | + + + | Home Phone [...] + | Author | [facility] (Historical as of | | | 03-12-19) | + + + | Organization | [facility] (Historical as of | | | 03-12-19) [...] Providers + +------+ + | Care District Home Economics Agent Name | Role | Phone | [...] | | | Activ | | (DRISDOL) [address] | mouth twice a week. | | [...] | obesity, she is enrolled in the [facility] bariatric program. She has | | lost [...] Recent | | admission to [facility] for 100lb weight | | gain- DC on diuresis on 03/06/2016- she feel improvedShe was on | | Metolazone and Torsemide prior to hospitalization- both have | | better bioavailability than lasix in gut edema but she retained | | 100lbs - how ever she is currently on only Torsemide 100mg Q12hrs | | started in [place] and her weight been stable sinceShe has no | | other complaints.She is pending to see [facility] | | 02/16/2016([facility])- Normal LV systolic function, mildly | [...] +------+-------+ + | MEDICAID | [place] | [id number] | | | [address] | | | N | | | | [place] | | | [place] | | | | [address] | | | [employer]E OIL [employer]ER | | | | | + +--------+ [...] | | | mireya | | | [address] | [address] | + +--------+ +--------+ + +
--- OUTSIDE RECORDS SUMMARY | ~2019-12-19 | XMS | Encounter Summary ---
Demographics + + + | Address | [address] | | | [place] [address] | + + + | Home Phone [...] [place], [place] | | | | | [address] | | + + + + + | Ellie Vang | ECON | Unknown | | + + + + + Care Team Providers + +------+ + | Care Manager Scientific Name | Role | Phone | + [...] | | | without | [place] | [address] | | | | | mention of | | Phone: | | | | | obstruction | | [phone] | | | | | or gangrene | | Fax: | | | | | | | [phone] | +--------+--------+ + + + + Encounter [...] | | | | [address] | [place], [place] | | | | | Physicians [place], | [address] | | | | | 2nd Floor | [phone] | | | | | [place], [place] | | | | | | [address] | | | | | | [phone] | | | +--------+---------+ + + + [...] fine, afebrile. Abdominal exam is completely benign. [place] are still in, And wound is healed. [place] removed. Drainage is serous, very slight sanguinous. No eviden ce of deep subcutaneous infection. Abdominal wall currently intact. Drain site OK. Assessment/Plan: Satisfactory course following primary repair of incarcerated umbilical he rnia. Pt. Wants to obtain care, including drain removal and diabetic care in [place], so I have referred her to her [...] [place] | | | | | | [address] | | | | | | [phone] | | | | | | | [...]
--- OUTSIDE RECORDS SUMMARY | ~2019-12-19 | XMS | Encounter Summary ---
[...] + | Katlaina Padilla | ECON | [address] | | | | | [place], [place] | | | | | [address] | | + + + + + | Ellie Vang | ECON | Unknown | | + + + + + Care Team Providers + +------+ + | Care Women'S Studies Professor Name | Role | Phone [...] | | | | | (HCC) | [place], [place] | Hospital, | | | | | Procedures | [address] | 10th Floor | | | | | CT ABDOMEN & | Phone: | [place], [place] | | | | | PELVIS WWO | | [address] | | | | | IV CONTRAST | Fax: | Phone: | | | | | ID CT | [phone] | [phone] | | | | | ABDOMEN&PELV | | Fax: | | | | | IS | | [phone] | | | | | W/CONTRAST | [...] [facility] | | | | | | | Health and | | | | | | | Healing, | | | | | | | Building 2 | | | | | | | [place], [place] | | | | | | | [address] | | | | | | | Phone: | | | | | | | [phone] | | | | | | | Fax: | | | | | | | [phone] | +--------+--------+ + + + + Encounter [...] | | [address] | Ave [place], [place] | obesity (HCC) | | | | Mailcode: [place] | [address] | | | | | [facility] and | [phone] | | | | | [facility] 2 | | | | | | [place], [place] | | | | | | [address] | | | | | | [phone] | | | +--------+---------+ + + + [...] [place] [id number] documented in this encounter Progress Notes Shereen Pinto ACNP - 10/02/2014 11:14 AM PDTFormatting of this note might be different fro m the original. BARIATRIC INITIAL VISIT Provider: Shereen Pinto DNP, ACNP, VULCANIZER RUBBER PLATE Referring Provider: Dr. Goodrich Reason for Requested [...] with the surgeon. Shereen Pinto DNP, ACNP, VULCANIZER RUBBER PLATE Nurse Practitioner for Bariatric Surgery [facility] | [address] | [place] | [address] | Potential Contraindications to Bariatric Surgery Age [...] does not guarantee that the [facility] Bariatric Surger y program will deem [...] Flannery | | | | | | [place], [place] | | | | | | [address] | | | | | | [phone] | | | | | | | [...]
--- OUTSIDE RECORDS SUMMARY | ~2019-12-19 | XMS | Encounter Summary ---
Demographics + + + | Address | [address] | | | [place] [address] | + + + | Home Phone [...] [place], [place] | | | | | [address] | | + + + + + | Ellie Vang | ECON | Unknown | | + + + + + Care Team Providers + +------+ + | Care High Frequency Mill Operator Name | Role | Phone [...] | 2020 | | Center at [facility] [address] | MD [address] | Review | | | | [address] | [facility] | | | | | Mailcode: Center | [place], [place] | | | | | [facility] and | [address] | | | | | [place] [address] | [phone] | | | | | [place], [place] | | | | | | [address] | | | | | | [phone] | | | +--------+ + + + [...] Flannery | | | | | | [place] | | | | | | [address] | | | | | | [phone] | | | | | | | | +--------+---------+ + + + documented as of this encounter Visit Diagnoses Not on filedocumented in this encounter"
--- OUTSIDE RECORDS SUMMARY | ~2019-12-19 | XMS | Encounter Summary ---
Demographics + + + | Address | [address] | | | [place] [address] | + + + | Home Phone [...] [place], [place] | | | | | [address] | | + + + + + | Ellie Vang | ECON | Unknown | | + + + + + Care Team Providers + +------+ + | Care Mounter Brass Wind Instruments Name | Role | Phone | + [...] | | | | | essential | [address] | [address] | | | | | hypertension | [address], | Ave | | | | | Type II or | [address] | [place], [place] | | | | | unspecified | [place], [place] | [address] | | | | | type | [address] | Phone: | | | | | diabetes | Phone: | [phone] | | | | | mellitus | [phone] | Fax: | | | | | without | Fax: | [phone] | | | | | mention of | [phone] | | | | | | complication [...] | 2013 | Visit | Preventive at [facility] | MD [address] | mellitus (HCC) | | | | [address] | [place], [place] | (Primary Dx); | | | | Mailcode: 9A | [address] | Migraine headache | | | | [facility] | [phone] | | | | | and Erick, | | | | | | Building [address] | | | | | | [place], [place] | | | | | | [address] | | | | | | [phone] | | | +--------+---------+ + + + [...] she is hypothyroid and put her on [place] Thyroid hormone replacement therapy. Her heart rate [...] Flannery | | | | | | [place], [place] | | | | | | [address] | | | | | | [phone] | | | | | | | [...] | + + + + + | [facility] | [address] | [place] [address] | | | SERVICES, SPECIAL | PARK [...]
--- OUTSIDE RECORDS SUMMARY | ~2019-12-19 | XMS | Encounter Summary ---
Demographics + + + | Address | [address] | | | [place] [address] | + + + | Home Phone [...] [place], [place] | | | | | [address] | | + + + + + | Ellie Vang | ECON | Unknown | | + + + + + Care Team Providers + +------+ + | Care Head Well Puller Name | Role | Phone | [...] Medical Records | | 2013 | | [place] at [facility] [address] | [address] [facility] | Review ([facility] - | | | | [address] | [address] | OUTSIDE RECORDS) | | | | Mailcode: [place] | [place], [place] | | | | | [facility] and | [address] | | | | | [place] [address] | [phone] | | | | | [place], [place] | | | | | | [address] | | | | | | [phone] | | | +--------+ + + + [...] Flannery | | | | | | [place], [place] | | | | | | [address] | | | | | | [phone] | | | | | | | | +--------+---------+ + + + documented as of this encounter Visit Diagnoses Not on filedocumented in this encounter"
--- OUTSIDE RECORDS SUMMARY | ~2019-12-19 | XMS | Encounter Summary ---
[...] [place], [place] | | | | | [address] | | + + + + + | Ellie Vang | ECON | Unknown | | + + + + + Care Team Providers + +------+ + | Care Otolaryngology Teacher Name | Role | Phone | [...] | [facility] | | | with BOSS DYER | | hypertension | [address] | [address] | | | | | Right | [address] | [address] | | | | | heart | [place], [place] | Mailcode: | | | | | failure | [address] | [facility] | | | | | ([facility]) Type | Phone: | Health and | | | | | 2 diabetes | [phone] | Healing, | | | | | mellitus | Fax: | Building 2 | | | | | without | [phone] | [place], [place] | | | | | complication | | [address] | | | | | , with | | Phone: | | | | | long-term | | | | | | | current use | | Fax: | | | | | of insulin | | [phone] | | | | | ([facility] | | 2 diabetes | JEAN, | [place], [place] | | | | | mellitus | [place] [address] | [address] | | | | | without | Phone: | Phone: | | | | | complication | [phone] | [phone] | | | | | (HCC) | Fax: | Fax: | | | | | Procedures | [phone] | [phone] | | | | | NE EST | | | | | | [...] 2017 | Visit | Preventive at [facility] | MD [address] | hypertension | | | | [address] | [place], [place] | (Primary Dx); Right | | | | Mailcode: [facility] | [address] | heart failure (HCC); | | | | [facility] | [phone] | Type 2 diabetes | | | | and Healing, | | mellitus without | | | | Building [address] | | complication, with | | | | [place], [place] | | long-term current | | | | [address] | | use of insulin (HCC) | | | | [phone] | | | +--------+---------+ + + + [...] 81 mg by mouth once daily. CALCIUM CRB&NTF-[id number]-JQC32-GENIS ORAL Take 2 tablets by mouth two [...] then she has worked closely with her [facility] doctor and has been been able [...] 12 CREATININE PLASMA (LAB) 0.79 EGFR - MICRONESIAN >60 EGFR NON -MICRONESIAN >60 GLUCOSE, PLASMA (LAB) 170 (H) CALCIUM, [...] | | | | | | [place], [place] | | | | | | [address] | | | | | | [phone] | | | | | | | [...] [facility] | [address] | [place] [address] | | | SERVICES, CORE | CLARENCE [...] + | [facility] | [address] | [place], [place] | | | SERVICES, LIPID | [address] | [address] | | + + + + + [...] glycated albumin should be considered for monitoring detention | LABORATORY | | glycemic control in [...] [facility] | [address] | [place] [address] | | | SERVICES, SPECIAL | CLARENCE [...] NKECHI ROBERTS | [address] | [place] [address] | | | LYDIA RANGEL | CLARENCE [...]
--- OUTSIDE RECORDS SUMMARY | ~2019-12-19 | XMS | Encounter Summary ---
Demographics + + + | Address | [address] | | | [place] [address] | + + + | Home Phone [...] [place], [place] | | | | | [address] | | + + + + + | Ellie Vang | ECON | Unknown | | + + + + + Care Team Providers + +------+ + | Care Reel Stripper Name | Role | Phone | [...] | | bypass | [place], [place] | [facility] Center | | | | | Nausea and | [address] | for Health | | | | | vomiting, | Phone: | and Healing, | | | | | intractabili | | Building 2 | | | | | ty of | Fax: | [place], [place] | | | | | vomiting not | [phone] | [address] | | | | | specified, | | Phone: | | | | | unspecified | | [phone] | | | | | vomiting | | Fax: | | | | | type | | [phone] | | | | | Decreased | [...] | | | | | | [place] | | | | | | | UPPER GI | | | | | | | ENDOSCOPY,BI | | | | | | | OPSY IA UP | | | | | | [...] | | 2017 | | Center at [facility] [address] | MD [address] | | | | | [address] | [place], [place] | | | | | Mailcode: [place] | [address] | | | | | for Health and | | | | | | [place] [address] | | | | | | [place], [place] | | | | | | [address] | | | | | | [phone] | | | +--------+ + + + [...] Flannery | | | | | | [place], [place] | | | | | | [address] | | | | | | [phone] | | | | | | | [...]
--- OUTSIDE RECORDS SUMMARY | ~2019-12-19 | XMS | Encounter Summary ---
Demographics + + + | Address | [address] | | | [place] [address] | + + + | Home Phone [...] [place], [place] | | | | | [address] | | + + + + + | Ellie Vang | ECON | Unknown | | + + + + + Care Team Providers + +------+ + | Care Mold Cooler Name | Role | Phone | + +------+ + | Fadi Goodrich DO | PCP | | + +------+ + Encounter Details +--------+ + + + + | Date | Type | Department | Care Team | Description | +--------+ + + + + | 03/02/ | Abstract | Dig[facility]ive [facility] | [place] Brian, | | | 2012 | | Center at [facility] [address] | MD [address] | | | | | [address] | [facility] | | | | | Mailcode: [place] | [place], [place] | | | | | [facility] Health and | [address] | | | | | [facility], [facility] 2 | [phone] | | | | | [place], [place] | | | | | | [address] | | | | | | [phone] | | | +--------+ + + + [...] Flannery | | | | | | [place], [place] | | | | | | [address] | | | | | | [phone] | | | | | | | | +--------+---------+ + + + documented as of this encounter Visit Diagnoses Not on filedocumented in this encounter"
--- OUTSIDE RECORDS SUMMARY | ~2019-12-19 | XMS | Encounter Summary ---
Demographics + + + | Address | [address] | | | [place] [address] | + + + | Home Phone [...] [place], [place] | | | | | [address] | | + + + + + | Ellie Vang | ECON | Unknown | | + + + + + Care Team Providers + +------+ + | Care Student Services Vice President Name | Role | Phone | + +------+ + | Fadi Goodrich DO | PCP | | + +------+ + Encounter Details +--------+------+ + + + | Date | Type | Department | Care Team | Description | +--------+------+ + + + | 11/20/ | Lab | Laboratory at [facility] | | Morbid obesity with | | 2017 | | [address] | | BMI of 70 and over, | | | | [place], [place] | | adult ([facility]); | | | | [address] | | 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 | | | | | 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| | 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 ([facility]) | | + +--------+ + + + | VITAMIN D, | Routin | 11/20/2017 | Morbid obesity | Results for this | | 25-HYDROXY, SERUM | e | 10:01 AM | with BMI of 70 and | procedure are in the | | | | PDT | over, adult ([facility]) | results section. | | | | | 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| | 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 ([facility]) | | + +--------+ + + + | COMPLETE METABOLIC | Routin | 11/20/2017 | Morbid obesity | Results for this | | SET | e | 10:01 AM | with BMI of 70 and | procedure are in the | | (NA,K,CL,CO2,BUN,CRE | | PDT | over, adult ([facility]) | results section. | | AT,GLUC,CA,AST,ALT,B | | | Diabetes mellitus | | | MARGIE TOTAL,ALK | | | type 2 without | | | PHOS,ALB,PROT TOTAL) |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 ([facility]) | | + +--------+ + + + | CBC ONLY | Routin | 11/20/2017 | Morbid obesity | Results for this | | | e | 10:01 AM | with BMI of 70 and | procedure are in the | | | | PDT | over, adult ([facility]) | results section. | | | | | 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| | 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 ([facility]) | | + +--------+ + + + | FERRITIN | Routin | 11/20/2017 | Morbid obesity | Results for this | | | e | 10:01 AM | with BMI of 70 and | procedure are in the | | | | PDT | over, adult ([facility]) | results section. | | | | | 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| | 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 ([facility]) | | + +--------+ + + + | PTH, SERUM | Routin | 11/20/2017 | Morbid obesity | Results for this | | | e | 10:01 AM | with BMI of 70 and | procedure are in the | | | | PDT | over, adult ([facility]) | results section. | | | [...] | | | PDT | over, adult ([facility]) | results section. | | | [...] | | | use of insulin ([facility]) | | | | | | [...] | + + + + + | [facility] | [address] | [place] [address] | | | SERVICES, [place] [facility] | | | | | HEALTH [...] [facility] | [address] | [place], [place] | | | SERVICES, LIPID | [address] | [address] | | + + + + + [...] | [facility] | | considered for monitoring remote computer terminal operator glycemic control in patients with: | [...] [facility] | [address] | [place] [address] | | | SERVICES, SPECIAL | CLARENCE [...] INTERPRETIVE | 70 - 180 nmol/L | [facility] | | | WHOLE | INFORMATION: Vitamin [...] | | | | | determined by [employer] | | | | | | Laboratories. See | | | | | | Compliance Statement B: | | | | | | [employer]/CSP[employer]formed | | | | | | by [employer],[address] | | | | | | [facility],[place] | | | | | | [address] | | | | | | [phone].[email or web address]. | | | | | | comIsmael [...] [facility] | [address] | [place], [place] | | | [facility] | | [address] | | + + + + + [...] [facility] | [address] | [place] [address] | | | SERVICES, CORE | CLARENCE [...] [facility] | [address] | [place] [address] | | | SERVICES, CORE | PARK [...] [facility] | [address] | [place] [address] | | | SERVICES, CORE | CLARENCE [...] [facility] | [address] | [place] [address] | | | SERVICES, CORE | PARK [...] [facility] | [address] | [place] [address] | | | LYDIA RANGEL | CLARENCE [...] [facility] | [address] | [place] [address] | | | SERVICES, CORE | CLARENCE [...]
--- OUTSIDE RECORDS SUMMARY | ~2019-12-19 | XMS | Encounter Summary ---
Demographics + + + | Address | [address] | | | [place] [address] | + + + | Home Phone [...] [facility] Hernandez | | | and [...] Team Providers + +------+ + | Care Distribution Spec Name | Role | Phone | + +------+ + PCP | Unavailable | + +------+ + Encounter Details +--------+ + + + + | Date | Type | Department | Care Team | Description | +--------+ + + + + | 12/13/ | Hospital | [facility] | Erich Wells | | | 2004 | Encounter | MED CTR SLEEP | MD Michael [address] | | | | | CENTER [address] | [address] [place] | | | | | [place], [place] | [place] [address] | | | | | [address] | [phone] | | | | | [phone] | | | +--------+ + + + [...] RICHEY | | | | | | [place] [address] | | | | | | [phone] | | | | | | | | +--------+---------+ + + + documented as of this encounter Visit Diagnoses Not on filedocumented in this encounter"
--- OUTSIDE RECORDS SUMMARY | ~2019-12-19 | XMS | Encounter Summary ---
Demographics + + + | Address | [address] | | | [place] [address] | + + + | Home Phone [...] Organization | [facility] | | | and [place]ana | + + + | Address | Unknown | + + + | Phone | Unavailable | + + + Support + + +---------+ + | Name | Relationship | Address | Phone | + + +---------+ + | Katalina Padilla | ECON | Unknown | | + + +---------+ + | lElie Barnett | ECON | Unknown | | + + +---------+ + Care Team Providers + +------+ + | Care Bulldozer/Loader/Compactor/Scraper Name | Role | Phone | + [...] [address] | | | | | | [place] | | | | | | [address] | | | | | | [phone] | | | +--------+ + + + [...] | | | | | [place] [address] | | | | | | [phone] | | | | | | | | +--------+---------+ + + + documented as of this encounter Visit Diagnoses + + | Diagnosis | + + | Absence of menstruation | + + documented in this encounter"
--- OUTSIDE RECORDS SUMMARY | ~2019-12-19 | XMS | Encounter Summary ---
Demographics + + + | Address | [address] | | | [place] [address] | + + + | Home Phone [...] [place], [place] | | | | | [address] | | + + + + + | Ellie Vang | ECON | Unknown | | + + + + + Care Team Providers + +------+ + | Care Percussion Teacher Name | Role | Phone | [...] | | | | | | [place], | | | | | | [place] [address] | | | | | | [phone] | | | +--------+ + + + [...] Flannery | | | | | | [place], [place] | | | | | | [address] | | | | | | [phone] | | | | | | | | +--------+---------+ + + + documented as of this encounter Visit Diagnoses Not on filedocumented in this encounter"
--- OUTSIDE RECORDS SUMMARY | ~2019-12-19 | XMS | Encounter Summary ---
[...] [place], [place] | | | | | [address] | | + + + + + | Ellie Vang | ECON | Unknown | | + + + + + Care Team Providers + +------+ + | Care Cutter Apprentice Hand Name | Role | Phone | [...] | 2014 | | Center at [facility] [address] | [facility] [address] | Review (Pre-surgery | | | | [address] | Ave [place], [place] | meal plan. To be | | | | Mailcode: [place] | [address] | provided to home | | | | for Health and | | health nurse. ) | | | | [facility], [address] | | | | | | [place], [place] | | | | | | [address] | | | | | | [phone] | | | +--------+ + + + [...] Flannery | | | | | | [place] | | | | | | [address] | | | | | | [phone] | | | | | | | | +--------+---------+ + + + documented as of this encounter Visit Diagnoses Not on filedocumented in this encounter"
--- OUTSIDE RECORDS SUMMARY | ~2019-12-19 | XMS | Encounter Summary ---
Demographics + + + | Address | [address] | | | [place] [address] | + + + | Home Phone [...] [place], [place] | | | | | [address] | | + + + + + | Ellie Vang | ECON | Unknown | | + + + + + Care Team Providers + +------+ + | Care Cut Off Sawyer Log Name | Role | Phone | + [...] 2012 | | Center at [facility] [address]85 | MD [address] | | | | | Jacy Flannery | [facility] | | | | | Mailcode: [place] | [place], [place] | | | | | [facility] and | [address] | | | | | [facility], [facility] [address] | [phone] | | | | | [place], [place] | | | | | | [address] | | | | | | [phone] | | | +--------+ + + + [...] Flannery | | | | | | [place], [place] | | | | | | [address] | | | | | | [phone] | | | | | | | | +--------+---------+ + + + documented as of this encounter Visit Diagnoses Not on filedocumented in this encounter"
--- OUTSIDE RECORDS SUMMARY | ~2019-12-19 | XMS | Encounter Summary ---
Demographics + + + | Address | [address] | | | [place] [address] | + + + | Home Phone [...] [place], [place] | | | | | [address] | | + + + + + | Ellie Vang | ECON | Unknown | | + + + + + Care Team Providers + +------+ + | Care Marketing Assistant Retail Division Name | Role | Phone | + [...] Mailcode:OP14B | | | | | | [facility] | | | | | | [place], [place] | | | | | | [address] | | | | | | [phone] | | | +--------+ + + + [...] Flannery | | | | | | [place], [place] | | | | | | [address] | | | | | | [phone] | | | | | | | [...] + +---------+ + + | [facility] DEPARTMENT OF | | | | | [...] + +---------+ + + | [facility] DEPARTMENT OF | | | | | [...] | | | | navigated a #5.5 [place]an | | | | | | Ozzy [...] Address | City[facility] | Phone Number | | Organization | | | | + +---------+ + + | [facility] DEPARTMENT OF | | | | | [...] + +---------+ + + | [facility] DEPARTMENT OF | | | | | [...] + +---------+ + + | [facility] DEPARTMENT OF | | | | | [...] | | | | | | a#5.5 [place]otswanan sheath was | | | | | | secured into place. In | | | | | | a similar fashion, | | | | | | a#7.0 [place]an sheath was | | | | | [...] | | | | | The #7 [place]an Brite | | | | | | [...] + +---------+ + + | [facility] DEPARTMENT OF | | | | | [...] + +---------+ + + | [facility] DEPARTMENT OF | | | | | RADIOLOGY | | | | + +---------+ + + documented in this encounter Visit Diagnoses Not on filedocumented in this encounter
--- OUTSIDE RECORDS SUMMARY | ~2019-12-19 | XMS | Encounter Summary ---
Demographics + + + | Address | [address] | | | [place] [address] | + + + | Home Phone [...] [place], [place] | | | | | [address] | | + + + + + | Ellie Vang | ECON | Unknown | | + + + + + Care Team Providers + +------+ + | Care C Architect Name | Role | Phone | [...] | | 2019 | | Preventive at [facility] | MD [address] | stop any | | | | [address] | [place], [place] | medications? ) | | | | Mailcode: Mihaela | [address] | | | | | [facility] | [phone] | | | | | and Healing, | | | | | | [address] | | | | | | [place], [place] | | | | | | [address] | | | | | | [phone] | | | +--------+ + + + [...] Flannery | | | | | | [place], [place] | | | | | | [address] | | | | | | [phone] | | | | | | | | +--------+---------+ + + + documented as of this encounter Visit Diagnoses Not on filedocumented in this encounter"
--- OUTSIDE RECORDS SUMMARY | ~2019-12-19 | XMS | Encounter Summary ---
Demographics + + + | Address | [address] | | | [place] [address] | + + + | Home Phone [...] [place], [place] | | | | | [address] | | + + + + + | Ellie Vang | ECON | Unknown | | + + + + + Care Team Providers + +------+ + | Care Edger Runner Name | Role | Phone | [...] Farris Alma Delia Mailcode: | Alma Delia [place], [place] | | | | | [facility] | [address] | | | | | Health and Healing, | [phone] | | | | | [address] | | | | | | Floor [facility] [place] | | | | | | [address] | | | | | | [phone] | | | +--------+ + + + [...] | | 0 | | | | CRB&DXZ-P6-IOW72-GEN | mouth two times | | | [...] Flannery | | | | | | [place], [place] | | | | | | [address] | | | | | | [phone] | | | | | | | [...]
--- OUTSIDE RECORDS SUMMARY | ~2019-12-19 | XMS | Encounter Summary ---
Demographics + + + | Address | [address] | | | [place] [address] | + + + | Home Phone | | + + + | Preferred Language | Unknown | + + + | Marital Status | | + + + | Yarsanism Affiliation | Unknown | + + + | Race | Unknown | + + + | Ethnic Group | Unknown | + + + Author + + + | Author | [facility] | | | and [place] | + + + | Organization | [facility] | | | and [place] | + + + | Address | Unknown | + + + | Phone | Unavailable | + + + Support + + +---------+ + | Name | Relationship | Address | Phone | + + +---------+ + | Katalina Padilla | ECON | Unknown | | + + +---------+ + | Ellie Branett | ECON | Unknown | | + + +---------+ + Care Team Providers + +------+ + | Care Lobby Porter Name | Role | Phone | + [...] Closed | | Radiology | Diagnoses | [place], | [facility] | | | | | Deep vein | Dharmesh | [address] | | | | | thrombosis | MD Natan | [address] | | | | | (DVT) of | [address] | [place], [place] | | | | | left lower | [address] | [address] | | | | | extremity, | [address] | Phone: | | | | | unspecified | [place], [place] | [phone] | | | | | chronicity, | [address] | Fax: | | | | | unspecified | Phone: | [phone] | | | | | vein (HCC) | [phone] | | | | | | Procedures | Fax: | | | | | | IR Removal | [phone] | | | | | | Fibrin [...] Closed | | Radiology | Diagnoses | [place], | [facility] | | | | | Deep vein | Dharmesh | Intra Op [address] | | | | | thrombosis | MD Natan | [address] | | | | | (DVT) of | [address] | [place], [place] | | | | | left lower | [address] | [address] | | | | | extremity, | [address] | Phone: | | | | | unspecified | [place], [place] | [phone] | | | | | chronicity, | [address] | Fax: | | | | | unspecified | Phone: | [phone] | | | | | vein (HCC) | [phone] | | | | | | Procedures | Fax: | | | | | | IR Removal | [phone] | | | | | | Fibrin | | | | | | | Sheath/Clot | | | | | | | on Device | | | +--------+--------+ + + + + Encounter Details +--------+ + + + + | Date | Type | Department | Care Team | Description | +--------+ + + + + | 11/27/ | Hospital | [facility] | Dharmesh Melchor | Deep vein thrombosis | | 2019 | Encounter | CENTER CV INTRA OP | MD Natan [address] | (DVT) of left lower | | | | [address] | [place] Esteban | extremity, | | | | [place], [place] | [place] [address] | unspecified | | | | [address] | [phone] | chronicity, | | | | [phone] | | unspecified vein | | | | | Christian Dawson MD | (HCC) | | | | | [address] | | | | | | [place], [place] | | | | | | [address] | | | | | | | [...] notice any of the signs, contact the [facility] at between 8:00 am and 5:00 [...] | | 0 | | | | Mbgdcnw-Qegxbruqp-Dk | mouth 2 times daily. 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
--- OUTSIDE RECORDS SUMMARY | ~2019-12-19 | XMS | Encounter Summary ---
Demographics + + + | Address | [address] | | | [place] [address] | + + + | Home Phone [...] Team Providers + +------+ + | Care Rounder Hand Name | Role | Phone | [...] Jacy Flannery | | | | | Trade at | [place], [place] | | | | | [place] [address] | [address] | | | | | [facility] | [phone] | | | | | [facility] | | | | | | [place], [place] | | | | | | [address] | | | | | | [phone] | | | +--------+--------+ + + + [...] Flannery | | | | | | [place] | | | | | | [address] | | | | | | [phone] | | | | | | | | +--------+---------+ + + + documented as of this encounter Visit Diagnoses Not on filedocumented in this encounter"
--- OUTSIDE RECORDS SUMMARY | ~2019-12-19 | XMS | Encounter Summary ---
Demographics + + + | Address | [address] | | | [place] [address] | + + + | Home Phone | | + + + | Preferred Language | Unknown | + + + | Marital Status | | + + + | Religion Affiliation | Unknown | + + + | Race | Unknown | + + + | Ethnic Group | Unknown | + + + Author + + + | Author | [facility] | | | and [place] | + + + | Organization | [facility] | [...] Providers + +------+ + | Care Waste Examiner Name | Role | Phone | + +------+ + PCP | Unavailable | + +------+ + Encounter Details +--------+ + + + + | Date | Type | Department | Care Team | Description | +--------+ + + + + | 02/16/ | Orders Only | [facility] | Sulema Altamirano | | | 2017 | | [address] | Toshia, AIR BRAKE WORKER [address] | | | [address] | PAYAL [place]HE[place] | | | | | [place], [place] | [place] [address] | | | | | [address] | [phone] | | | | | [phone] | (Fax) | | +--------+ + + [...] RICHEY | | | | | | [place] [address] | | | | | | [phone] | | | | | | | [...] 5.71 | | | RAP: 5 mmHg Restorative Aide: JESSICA Authenticated by: BENJY | | | [...] cmLVPWd: 0.81 | | cmLVOT Area: 3.98 gn6NRFX Diam: 2.25 cm%FS: 32.91 %EF(Teich): 61.28 | [...] (A-L): 20.64 ml/m2LAAs A2C: 14.37 | | [id number] A-L A2C: 40.74 mlLALs A2C: 4.30 cmLAAs A4C: 16.09 lx5YIVKU A-L A4C: | | 43.02 mlLALs A4C: 5.10 cmRAAs: 13.58 dk8UYJHO A-L: 33.08 mlRAESV MOD: 32.14 | | mlRALs: 4.73 cmTAPSE: 2.16 cmAV maxP.33 mmHgAV meanP.31 mmHgAV Vmax: | | 1.60 m/Genesis Vmean: 1.08 m/Genesis VTI: 25.19 cmAVA Vmax: 2.75 cm2AVA (VTI): 3.06 | | bh3ZAZT Vmax: 0.00 cm2/m2AVAI (VTI): 0.00 cm2/m2LVOT maxP.93 mmHgLVOT meanPG: | | 2.50 mmHgLVSI Dopp: 34.92 ml/m2LVSV Dopp: 77.18 mlLVOT Vmax: 1.11 m/sLVOT Vmean: | | 0.73 m/sLVOT VTI: 19.34 cmMV A Jeffrey: 0.81 m/sMV DecT: 249.81 msMV E Jeffrey: 0.82 | | m/sMV E/A Ratio: 1.01MV PHT: 72.44 msMVA By PHT: 3.03 xj9Avssvt e': 0.07 | | m/sSeptal E/e': 11.80Lateral e': 0.14 m/sLateral E/e': 5.71RAP: 5 mmHg | | Restorative Aide: DHAuthenticated by: Shirley SILVER Date/Time: 02-16-2017 18:47:15 [...] |MV DecT: 249.81 ms | |MV E Jeffery: 0.82 m/s | |MV E/A Ratio: 1.01 | |MV PHT: 72.44 ms | |MVA By PHT: 3.03 cm2 | |Septal e': 0.07 m/s | |Septal E/e': 11.80 | |Lateral e': 0.14 m/s | |Lateral E/e': 5.71 | |RAP: 5 mmHg | | | |Restorative Aide: JESSICA | |Authenticated by: BENJY HANKINS MD [...]
--- OUTSIDE RECORDS SUMMARY | ~2019-12-19 | XMS | Encounter Summary ---
[...] [place], [place] | | | | | [address] | | + + + + + | Ellie Vang | ECON | Unknown | | + + + + + Care Team Providers + +------+ + | Care Sorority Supervisor Name | Role | Phone | [...] [address]INCE Hermin[address] | | | | | [place], [place] | [address] | | | [birth year]/ | | [address] | [place], [place] | | | 2014 | | [phone] | [address] | | | | | | [phone] | | | | | | | [...] port site who was transferre d to [facility] for concern of an incarcerated hernia. On [...] mouth once daily. , Historical Med CALCIUM CRB&OGD-B8-UWZ17-GENIS ORAL Take 1 tablet by mouth two [...] 10:40 AM Randell Franks Cardiology Preventive at [facility] [phone] Cardiology 04/09/2015 1:00 PM Egs Ppv Tra Trauma Emergency General Surgery at [facility] [phone] [facility] Outstanding labs/studies: None Discharging Physician: GABO LANGSTON MD Attending Physician: Dr. Cantu PCP: Fadi Goodrich DO Signed: GABO LANGSTON MD Pager #[phone] Surgical Oral And Maxillofacial Surgery Resident [facility] Associated attestation - Tye Carrillo DO - 03/12/2015 9:12 AM PDTAttending: I discussed this patient with the resident and agree with the assessment and plan as outlin ed in this note and participated in the planning of care. Tye Carrillo DO, MBA, FACS Division of Trauma, Critical Care & Acute Care Surgery [facility] [phone] documented in this encounter Medications at Time of Discharge + + + +---------+--------+ + | Medication | Sig | Dispensed | Refills | Start | End Date | | | | | | Date | | + + + +---------+--------+ + | CALCIUM | Take 2 tablets by | | 0 | | | | CRB&LLT-N5-AVD61-GEN | mouth two times | | | [...] be differ ent from the original. [facility] DEPARTMENT OF SURGERY EMERGENCY GENERAL SURGERY Division [...] obesity with known ventral hernias transferred to [facility] for surgical managem ent of ventral hernia, now s/p repair. Post surgical pain: -patient ready for d/c, discussed f/u. Patient lives far away and has other appointments at [facility]. Will attempt to coordinate appointments. Discharge Plan: D/c today GBAO LANGSTON MD Pager #[phone] Surgical Oral And Maxillofacial Surgery Resident [facility] Salomón William Md - 03/02/2015 1:12 PM PDT [facility] DEPARTMENT OF SURGERY EMERGENCY GENERAL SURGERY Division of Trauma and Critical Care Attending Physician: Shahid Cantu MD Progress Note Note Date: 03/02/2015 Admission Date: 2015 DYLAN ROMERO, Hospital Day #2 40 F PMH morbid obesity (BMI 71 today), DM2, depression, GERD, h/o stroke at age 18, and kn own ventral hernias transferred to [facility] for surgical treatment of suspected incarcerated yuriy [...] obesity with known ventral hernias transferred to [facility] for surgical managem ent of ventral hernia, [...] will be robel ing her home to [place], [place]. CALVIN ROMERO MD PGY-1 Anesthesiology Pager: [phone] [facility] [place] [facility] [address] [facility] [phone] arthik Gonzalez MD - 03/02/2015 8:26 AM [id number] Calvin William Md - 03/01/2015 5:34 PM PDT Brief Post Operative Note: 40 F PMH morbid obesity (BMI 71 today), DM2, depression, GERD, h/o stroke at age 18, and kn own ventral hernias transferred to [facility] for surgical treatment of incarcerated ventral herni [...] control CALVIN ROMERO MD PGY-1 Anesthesiology Pager: [phone] signed by Calvin Romero Md at 03/01/2015 5:41 PM PDTdocumente d in this encounter Plan of Treatment +--------+---------+ + + + | Date | Type | Specialty | Care Team | Description | +--------+---------+ + + + | 03/15/ | Office | Cardiology | Randell Franks, | | | 2019 | Visit | | [address] | | | | | | [place], [place] | | | | | | [address] | | | | | | [phone] | | | | | | | [...] | | Attending Surgeon: Shahid Cantu MD Casting Carrier(s): Howie Angeles MD, R5 | | Karthik [...] 03/02/2015 08:25:39DT: 03/02/2015 09:15:57Job #: | | [id number] | | | |Dr. Chris Cantu was present and scrubbed for the entirety of the case. | | | | | | | |Karthik Gonzalez MD | | | |Pursuant to federal Medicare and Medicaid regulations I was present for the entire procedur e. | | | | | | | |Shhaid Cantu MD | |Balloon Design Printer | |Trauma, Critical Care & Acute Care Surgery | | | | | | | |Shahid Cantu MD | |TBK/MODL | | | | | | /[id number] | + ---+ CAPILLARY BLOOD GLUCOSE (NO [...] | [address] | [place], [place] | | | [facility] | [address] | [address] | | | TESTS | | | [...] | [address] | [place], [place] | | | [facility] | [address] | [address] | | | TESTS | | | [...] | [address] | [place], [place] | | | [facility] | [address] | [address] | | | TESTS | | | [...] | [address] | [place], [place] | | | [facility] | [address] | [address] | | | TESTS | | | [...] | [address] | [place], [place] | | | [facility] | [address] | [address] | | | TESTS | | | [...] | [address] | [place], [place] | | | [place] [facility] | [address] | [address] | | | TESTS | | | [...] [address] | [place] [address] | | | SERVICES, CORE | PARK [...] | | | LABORATORY | | | SWAZI | | | SERVICES, | | | [...] | + + + + + | [facility] | [address] | [place] [address] | | | SERVICES, CORE | CLARENCE [...] | [address] | [place], [place] | | | [facility] | [address] | [address] | | | TESTS | | | [...] [facility] | [address] | [place], [place] | | | [facility] | [address] | [address] | | | TESTS | | | [...] + + + | [facility] | [address] | [place], [place] | | | [facility] | [address] | [address] | | | TESTS | | | [...] | [address] | [place], [place] | | | [facility] | [address] | [address] | | | TESTS | | | [...] - [facility] | [address] | [place], [place] | | | [facility] | [address] | [address] | | | TESTS | | | [...] | + + + + + | [facility] | [address] | [place] [address] | | | SERVICES, CORE | CLARENCE [...] [facility] | [address] | [place], [place] | | | [facility] | [address] | [address] | | | TESTS | | | [...] PDT | | | | | Starting [facility] 03/01/15 at 1056, | | | | | | | Until [facility] 03/01/15 at 1436, | | | [...] mL/hr | mL/hr | | | Starting Jamsyne 03/01/15 at 0045, | | AM PDT [...] | | | | First dose on [facility] 03/01/15 at 0900, | | AM [...] | | | | | dose on [facility] 03/01/15 at 0900, Until | | [...]
--- OUTSIDE RECORDS SUMMARY | ~2019-12-19 | XMS | Encounter Summary ---
Demographics + + + | Address | [address] | | | [place] [address] | + + + | Home Phone [...] | [facility] | | | and [...] Team Providers + +------+ + | Care Cooler Deliverer Name | Role | Phone | + +------+ + PCP | Unavailable | + +------+ + Encounter Details +--------+ + + + + | Date | Type | Department | Care Team | Description | +--------+ + + + + | 03/31/ | Orders Only | [facility] | Dharmesh Escobar, | | | 2016 | | NEPHROLOGY [place] | FLUSH TESTER [address] | | | | [address] | [address] | | | | | [address] [place], [place] | [place] | | | | | [address] | [address] | | | | | [phone] | [phone] | | | | | | | [...] F | | | | | | [place] [address] | | | | | | [phone] | | | | | | | [...] | | | LAB | | | BELARUSIAN | | | | | + +---------+ [...]
--- OUTSIDE RECORDS SUMMARY | ~2019-12-19 | XMS | Encounter Summary ---
Demographics + + + | Address | [address] | | | [place] [address] | + + + | Home Phone [...] [place], [place] | | | | | [address] | | + + + + + | Ellie Vang | ECON | Unknown | | + + + + + Care Team Providers + +------+ + | Care Analytical Engineer Name | Role | Phone | [...] PRINCE Herminio | | | | | [place], [place] | [address] | | | 03/03/ | | [address] | [place], [place] | | | 2014 | | [phone] | [address] | | | | | | [phone] | | | | | | | [...] port site who was transferre d to [facility] for concern of an incarcerated hernia. [...] mouth once daily. , Historical Med CALCIUM CRB&AQY-H8-RES93-GENIS ORAL Take 1 tablet by mouth two [...] AM Randell Franks Cardiology Preventive at [facility] [phone] Cardiology 04/09/2015 1:00 PM Egs Ppv Tra Trauma Emergency General Surgery at [facility] [phone] [facility] Outstanding labs/studies: None Discharging Physician: GABO LANGSTON MD Attending Physician: Dr. Cantu PCP: Fadi Goodrich DO Signed: GABO LANGSTON MD Pager #[phone] Surgical Music Leader [facility] Associated attestation - Tye Carrillo DO - 03/12/2015 9:12 AM PDTAttending: I discussed this patient with the resident and agree with the assessment and plan as outlin ed in this note and participated in the planning of care. Tye Carrillo DO, MBA, FACS Division of Trauma, Critical Care & Acute Care Surgery [facility] [phone] documented in this encounter Medications at Time of Discharge + + + +---------+--------+ + | Medication | Sig | Dispensed | Refills | Start | End Date | | | | | | Date | | + + + +---------+--------+ + | CALCIUM | Take 2 tablets by | | 0 | | | | CRB&NPB-R9-[id number]-GEN | mouth two times | | | [...] documented as of this encounter Progress Notes Gbao Langston MD - 03/03/2015 11:24 AM PDTFormatting of this note might be differ ent from the original. [facility] DEPARTMENT OF SURGERY EMERGENCY GENERAL SURGERY Division [...] obesity with known ventral hernias transferred to [facility] for surgical managem ent of ventral hernia, now s/p repair. Post surgical pain: -patient ready for d/c, discussed f/u. Patient lives far away and has other appointments at [facility]. Will attempt to coordinate appointments. Discharge Plan: D/c today GABO LANGSTON MD Pager #[phone] Surgical Music Leader [facility] Salomón William Md - 03/02/2015 1:12 PM PDT [facility] DEPARTMENT OF SURGERY EMERGENCY GENERAL SURGERY Division of Trauma and Critical Care Attending Physician: Shahid Cantu MD Progress Note Note Date: 03/02/2015 Admission Date: 2015 DYLAN ROMERO, Hospital Day #2 40 F PMH morbid obesity (BMI 71 today), DM2, depression, GERD, h/o stroke at age 18, and kn own ventral hernias transferred to [facility] for surgical treatment of suspected incarcerated [...] obesity with known ventral hernias transferred to [facility] for surgical managem ent of ventral [...] will be robel ing her home to [place], [place]. CALVIN ROMERO MD PGY-1 Anesthesiology Pager: [phone] [facility] [place] [address] [facility] [address] arthik Gonzalez MD - 03/02/2015 8:26 AM [id number] Calvin William Md - 03/01/2015 5:34 PM PDT Brief Post Operative Note: 40 F PMH morbid obesity (BMI 71 today), DM2, depression, GERD, h/o stroke at age 18, and kn own ventral hernias transferred to [facility] for surgical treatment of incarcerated ventral [...] control CALVIN ROMERO MD PGY-1 Anesthesiology Pager: [phone] signed by Calvin Romero Md at 03/01/2015 5:41 PM PDTdocumente d in this encounter Plan of Treatment +--------+---------+ + + + | Date | Type | Specialty | Care Team | Description | +--------+---------+ + + + | 03/15/ | Office | Cardiology | Randell Franks, | | | 2019 | Visit | | [address] | | | | | | [place], [place] | | | | | | [address] | | | | | | [phone] | | | | | | | [...] | | Attending Surgeon: Shahid Cantu MD Lumber Inspector(s): Howie Angeles MD, R5 | | Karthik [...] 03/02/2015 08:25:39DT: 03/02/2015 09:15:57Job #: | | [id number] | | | |Dr. Chris Cantu was present and scrubbed for the entirety of the case. | | | | | | | |Karthik Gonzalez MD | | | |Pursuant to federal Medicare and Medicaid regulations I was present for the entire procedur e. | | | | | | | |Shahid Cantu MD | |Balance Wheel Screw Hole Tapper | |Trauma, Critical Care & Acute Care Surgery | | | | | | | |Shahid Cantu MD | |TBK/MODL | | | | | | /[id number] | + ---+ CAPILLARY BLOOD GLUCOSE (NO [...] | [address] | [place], [place] | | | [facility] CARE | [address] | [address] | | | TESTS | | | [...] | [place], [place] | | | [facility] CARE | [address] | [address] | | | TESTS | | | [...] | [address] | [place], [place] | | | [place] [facility] | [address] | [address] | | | TESTS | | | [...] | [address] | [place], [place] | | | [place] [facility] | [address] | [address] | | | TESTS | | | [...] | | [facility] | [address] | [address] | | | TESTS | | | [...] [place] | [address] | [place], [place] | | | [place] | [address] | [address] | | | TESTS | | | [...] [facility] | [address] | [place] [address] | | | SERVICES, CORE | PARK [...] | + + + + + | [facility] | [address] | [place] [address] | | | SERVICES, CORE | CLARENCE [...] | | [place] [facility] | [address] | [address] | | | TESTS | | | [...] | [facility] | [address] | [place], [place] | | | [place] [facility] | [address] | [address] | | | TESTS | | | [...] + + + | [facility] | [address] | [place], [place] | | | [place] [facility] | [address] | [address] | | | TESTS | | | [...] | | [facility] [facility] | [address] | [address] | | | TESTS | | | [...] - [facility] | [address] | [place], [place] | | | [place] [facility] | [address] | [address] | | | TESTS | | | [...] [facility] | [address] | [place] [address] | | | SERVICES, CORE | CLARENCE [...] NKECHI AMES | [address] | [place], [place] | | | [facility]ARE | [address] | [address] | | | TESTS | | | [...] AM PDT | | | | | JASYMNE (Once per day on Thu), | | [...] PDT | | | | | Starting [facility] 03/01/15 at 1056, | | | | | | | Until [facility] 03/01/15 at 1436, | | | [...] | | | | First dose on [facility] 03/01/15 at 0900, | | AM [...] | | | | | dose on [facility] 03/01/15 at 0900, Until | | [...]
--- OUTSIDE RECORDS SUMMARY | ~2019-12-19 | XMS | Encounter Summary ---
Demographics + + + | Address | [address] | | | [place] [address] | + + + | Home Phone [...] [place], [place] | | | | | [address] | | + + + + + | Ellie Vang | ECON | Unknown | | + + + + + Care Team Providers + +------+ + | Care Hotel Recreational Facilities Manager Name | Role | Phone | [...] | | | | [facility] | | | | | | [facility] Admitting | | | | | | Desk Located on the | | | | | | 9th floor | | | | | | [place], [place] | | | | | | [address] | | | +--------+ + + + [...] [address] | | | | | | [place], [place] | | | | | | [address] | | | | | | [phone] | | | | | | | [...]
--- OUTSIDE RECORDS SUMMARY | ~2019-12-19 | XMS | Encounter Summary ---
Demographics + + + | Address | [address] | | | [place] [address] | + + + | Home Phone [...] [place], [place] | | | | | [address] | | + + + + + | Ellie Vang | ECON | Unknown | | + + + + + Care Team Providers + +------+ + | Care Rail Car Driver Name | Role | Phone [...] | [facility] | | | with CHILLER TECHNICIAN | | hypertension | [address] | [address] | | | | | Right | [address] | [address] | | | | | heart | [place], [place] | Mailcode: | | | | | failure | [address] | [facility] | | | | | ([facility]) Type | Phone: | Health and | | | | | 2 diabetes | [phone] | Healing, | | | | | mellitus | Fax: | Building [address] | | | | | without | [phone] | [place], [place] | | | | | complication | | [address] | | | | | , with | | Phone: | | | | | long-term | | | | | | | current use | | Fax: | | | | | of insulin | | [phone] | | | | | ([facility]) | | | | | | [...] | | 2 diabetes | JEAN, | [place], [place] | | | | | mellitus | [place] [address] | [address] | | | | | without | Phone: | Phone: | | | | | complication | [phone] | [phone] | | | | | (HCC) | Fax: | Fax: | | | | | Procedures | [phone] | [phone] | | | | | [place] EST [...] 2017 | Visit | Preventive at [facility] | MD [address] | hypertension | | | | [address] | [place], [place] | (Primary Dx); Right | | | | Mailcode: [facility] | [address] | heart failure (HCC); | | | | [facility] | [phone] | Type 2 diabetes | | | | and Healing, | | mellitus without | | | | [address] | | complication, with | | | | [place], [place] | | long-term current | | | | [address] | | use of insulin (HCC) | | | | [phone] | | | +--------+---------+ + + + [...] 81 mg by mouth once daily. CALCIUM CRB&ETF-Y0-UUJ28-GENIS ORAL Take 2 tablets by mouth two [...] then she has worked closely with her [facility] doctor and has been been [...] PLASMA (LAB) 0.79 EGFR - [place] >60 EGFR NON -[place]IZ[place] >60 GLUCOSE, PLASMA (LAB) 170 (H) CALCIUM, [...] [address] | | | | | | [place], [place] | | | | | | [address] | | | | | | [phone] | | | | | | | [...] [facility] | [address] | [place] [address] | | | SERVICES, CORE | CLARENCE [...] + + + | [facility] | [address] | [place], [place] | | | SERVICES, LIPID | [address] | [address] | | + + + + + [...] glycated albumin should be considered for monitoring penitentiary | LABORATORY | | glycemic control in [...] [facility] | [address] | [place] [address] | | | SERVICES, SPECIAL | CLARENCE [...] | LABORATORY | | | [place] | | | SERVICES, | | | [...] [facility] | [address] | [place] [address] | | | LYDIA RANGEL | CLARENCE [...]
--- OUTSIDE RECORDS SUMMARY | ~2019-12-19 | XMS | Encounter Summary ---
Demographics + + + | Address | [address] | | | [place] [address] | + + + | Home Phone [...] [place], [place] | | | | | [address] | | + + + + + | Ellie Vang | ECON | Unknown | | + + + + + Care Team Providers + +------+ + | Care Position Classifier Name | Role | Phone | + [...] on | Center at [facility] [address] | BAND SPLICER [address] | | | | | [address] | [facility] 350 | | | | | Mailcode: Center | [place], [place] | | | | | [facility] Health and | [address] | | | | | [facility] 2 | [phone] | | | | | [place], [place] | | | | | | [address] | | | | | | [phone] | | | +--------+ + + + [...] [address] | | | | | | [place], [place] | | | | | | [address] | | | | | | [phone] | | | | | | | | +--------+---------+ + + + documented as of this encounter Visit Diagnoses Not on filedocumented in this encounter"
--- OUTSIDE RECORDS SUMMARY | ~2019-12-19 | XMS | Encounter Summary ---
Demographics + + + | Address | [address] | | | [place] [address] | + + + | Home Phone [...] [place], [place] | | | | | [address] | | + + + + + | Ellie Vang | ECON | Unknown | | + + + + + Care Team Providers + +------+ + | Care Airplane Refueler Name | Role | Phone | + [...] | | Center at [facility] [address] | [facility] [place] | | | | | [address] | [address] | | | | | Mailcode: Center | [phone] | | | | | for Health and | | | | | | [facility] 2 | | | | | | [facility] [place] | | | | | | [address] | | | | | | [phone] | | | +--------+ + + + [...] [address] | | | | | | [place], [place] | | | | | | [address] | | | | | | [phone] | | | | | | | | +--------+---------+ + + + documented as of this encounter Visit Diagnoses Not on filedocumented in this encounter"
--- OUTSIDE RECORDS SUMMARY | ~2019-12-19 | XMS | Encounter Summary ---
Demographics + + + | Address | [address] | | | [place] [address] | + + + | Home Phone [...] [place], [place] | | | | | [address] | | + + + + + | Ellie Vang | ECON | Unknown | | + + + + + Care Team Providers + +------+ + | Care Nurse Sexual Assault Name | Role | Phone | + +------+ + | Fadi Goodrich DO | PCP | | + +------+ + Encounter Details +--------+ + + + + | Date | Type | Department | Care Team | Description | +--------+ + + + + | 11/09/ | Abstract | Cardiology | Randell Franks, | | | 2014 | | Preventive at [facility] | MD [address] | | | | | [address] | [facility] [place] | | | | | Mailcode: CH9A | [address] | | | | | [facility] | [phone] | | | | | and Healing, | | | | | | [address] | | | | | | [facility] [place] | | | | | | [address] | | | | | | [phone] | | | +--------+ + + + [...] | | 2019 | Visit | | [address] | | | | | | [place], [place] | | | | | | [address] | | | | | | [phone] | | | | | | | | +--------+---------+ + + + documented as of this encounter Visit Diagnoses Not on filedocumented in this encounter"
--- OUTSIDE RECORDS SUMMARY | ~2019-12-19 | XMS | Encounter Summary ---
Demographics + + + | Address | [address] | | | [place] [address] | + + + | Home Phone [...] [place], [place] | | | | | [address] | | + + + + + | Ellie Vang | ECON | Unknown | | + + + + + Care Team Providers + +------+ + | Care Orthodontist Name | Role | Phone | + [...] Randell | | | | | | [address] | [address] | | [address] | [address] | | | | | | [address] | [place], [place] | | | | | | [place], [place] | [address] | | | | | | [address] | Phone: | | | | | | Phone: | [phone] | | | | | | [phone] | Fax: | | | | | | Fax: | [phone] | | | | | | [phone] | | +--------+--------+ + + + + Encounter Details +--------+---------+ + + + | Date | Type | Department | Care Team | Description | +--------+---------+ + + + | 08/29/ | Office | Cardiology | Randell Franks, | HTN (hypertension) | | 2013 | Visit | Preventive at [facility] | MD [address] | (Primary Dx); Type 2 | | | | [address] | [place], [place]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 | | | | Mailcode: [facility] | [address] | ([facility]); Morbid | | | | [facility] | [phone] | obesity (HCC) | | | | and Healing, | | | | | | Building [address] | | | | | | [place], [place] | | | | | | [address] | | | | | | [phone] | | | +--------+---------+ + + + [...] documented in is encounter Plan of Treatment +--------+---------+ + + + | Date | Type | Specialty | Care Team | Description | +--------+---------+ + + + | 03/15/ | Office | Cardiology | Randell Franks, | | | 2019 | Visit | | [address] | | | | | | [place], [place] | | | | | | [address] | | | | | | [phone] | | | | | | | [...]
--- OUTSIDE RECORDS SUMMARY | ~2019-12-19 | XMS | Encounter Summary ---
Demographics + + + | Address | [address] | | | [place] [address] | + + + | Home Phone [...] [place], [place] | | | | | [address] | | + + + + + | Ellie Vang | ECON | Unknown | | + + + + + Care Team Providers + +------+ + | Care Mixing Roll Operator Name | Role | Phone | + +------+ + | Fadi Goodrich DO | PCP | | + +------+ + Encounter Details +--------+ + + + + | Date | Type | Department | Care Team | Description | +--------+ + + + + | 12/12/ | Emergency | [facility] Emergency | | | | 2014 - | | Department [address] | | | | | [address] | | | | 05/20/ | | [facility] | | | | 2014 | | [place], [place] | | | | | | [address] | | | | | | [phone] | | | +--------+ + + + [...] | 2019 | Visit | | [address] | | | | | | [place], [place] | | | | | | [address] | | | | | | [phone] | | | | | | | | +--------+---------+ + + + documented as of this encounter Visit Diagnoses Not on filedocumented in this encounter"
--- OUTSIDE RECORDS SUMMARY | ~2019-12-19 | XMS | Encounter Summary ---
Demographics + + + | Address | [address] | | | [place] [address] | + + + | Home Phone [...] [place], [place] | | | | | [address] | | + + + + + | Ellie Vang | ECON | Unknown | | + + + + + Care Team Providers + +------+ + | Care Customer Care Team Coach Name | Role | Phone | + +------+ + | Kenyatta Cardenas MD | PCP | | + +------+ + Encounter Details +--------+ + + + + | Date | Type | Department | Care Team | Description | +--------+ + + + + | 05/03/ | Inside | [facility] at [facility] | Ion Pandey, | | | 2018 | Referral | [facility] [address] | MD [address] | | | | Order | [address] Mailcode: | [place], [place] | | | | | [address] [place] [address] | [address] | | | | | Health and Healing, | [phone] | | | | | Building [address] | | | | | | [place], [place] | | | | | | [address] | | | | | | [phone] | | | +--------+ + + + [...] [address] | | | | | | [place], [place] | | | | | | [address] | | | | | | [phone] | | | | | | | [...]
--- OUTSIDE RECORDS SUMMARY | ~2019-12-19 | XMS | Encounter Summary ---
Demographics + + + | Address | [address] | | | [place] [address] | + + + | Home Phone [...] [place], [place] | | | | | [address] | | + + + + + | Elile Vang | ECON | Unknown | | + + + + + Care Team Providers + +------+ + | Care Registered Nurse Step Down Name | Role | Phone | + [...] check | | 2020 | Visit | [place] [facility] [address] | MD [address] | (Primary Dx) | | | | [address] | [facility] | | | | | Mailcode: Center | [place], [place] | | | | | [facility] and | [address] | | | | | [place] [address] | [phone] | | | | | [place], [place] | | | | | | [address] | | | | | | [phone] | | | +--------+---------+ + + + [...] recommend you go to the ED in [place] for workup of pulmonary embolism. I will [...] check. Of note, she was admitted to [facility] 09/02/2019 - 09/04/2019 for a large wound [...] Recommended patient present to the ED in [place] for workup of pulmonary embolism Will call [...] [facility] [address] [place] [address] documented in this encounter Plan of Treatment +--------+---------+ + + + | Date | Type | Specialty | Care Team | Description | +--------+---------+ + + + | 03/15/ | Office | Cardiology | Randell Franks, | | | 2019 | Visit | | [address] | | | | | | [place], [place] | | | | | | [address] | | | | | | [phone] | | | | | | | | +--------+---------+ + + + documented as of this encounter Visit Diagnoses + + | Diagnosis | + + | Postop check - Primary Follow-up examination, following unspecified surgery | + + documented in this encounter
--- OUTSIDE RECORDS SUMMARY | ~2019-12-19 | XMS | Encounter Summary ---
Demographics + + + | Address | [address] | | | [place] [address] | + + + | Home Phone [...] [place], [place] | | | | | [address] | | + + + + + | Ellie Vang | ECON | Unknown | | + + + + + Care Team Providers + +------+ + | Care Engineering Faculty Name | Role | Phone | + +------+ + | Kenyatta Cardenas MD | PCP | | + +------+ + Encounter Details +--------+ + + + + | Date | Type | Department | Care Team | Description | +--------+ + + + + | 05/28/ | Phillip | [facility] at [facility] | Lab, Gi Procedure | | | 2018 | on | [facility] [address] | | | | | | [address] Mailcode: | | | | | | [facility] | | | | | | Health and Healing, | | | | | | [facility] | | | | | | [place], [place] | | | | | | [address] | | | | | | [phone] | | | +--------+ + + + [...] | | 2019 | Visit | | [address] | | | | | | [place], [place] | | | | | | [address] | | | | | | [phone] | | | | | | | | +--------+---------+ + + + documented as of this encounter Visit Diagnoses Not on filedocumented in this encounter"
--- OUTSIDE RECORDS SUMMARY | ~2019-12-19 | XMS | Encounter Summary ---
Demographics + + + | Address | [address] | | | [place] [address] | + + + | Home Phone [...] [place], [place] | | | | | [address] | | + + + + + | Ellie Vang | ECON | Unknown | | + + + + + Care Team Providers + +------+ + | Care Spinning Mule Operator Name | Role | Phone [...] Center at [facility] [address] | MD [address] [facility] | | | | | [address] | [address] | | | | | Mailcode: [place] | [place], [place] | | | | | [facility] Health and | [address] | | | | | [facility] 2 | [phone] | | | | | [place], [place] | | | | | | [address] | | | | | | [phone] | | | +--------+ + + + [...] [address] | | | | | | [place] | | | | | | [address] | | | | | | [phone] | | | | | | | | +--------+---------+ + + + documented as of this encounter Visit Diagnoses Not on filedocumented in this encounter"
--- OUTSIDE RECORDS SUMMARY | ~2019-12-19 | XMS | Encounter Summary ---
Demographics + + + | Address | [address] | | | [place] [address] | + + + | Home Phone [...] [place], [place] | | | | | [address] | | + + + + + | Ellie Vang | ECON | Unknown | | + + + + + Care Team Providers + +------+ + | Care Interior Decorator Painting Name | Role | Phone | + +------+ + | Kenyatta Cardenas MD | PCP | | + +------+ + Encounter Details +--------+ + + + + | Date | Type | Department | Care Team | Description | +--------+ + + + + | 12/01/ | Documentati | [facility] | Clinic, Surgery | | | 2016 | on | Center at [place] [address] | | | | | | [address] | | | | | | Mailcode: [place] | | | | | | for Health and | | | | | | [facility] 2 | | | | | | [place], [place] | | | | | | [address] | | | | | | [phone] | | | +--------+ + + + [...] [address] | | | | | | [place], [place] | | | | | | [address] | | | | | | [phone] | | | | | | | | +--------+---------+ + + + documented as of this encounter Visit Diagnoses Not on filedocumented in this encounter"
--- OUTSIDE RECORDS SUMMARY | ~2019-12-19 | XMS | Encounter Summary ---
Demographics + + + | Address | [address] | | | [place] [address] | + + + | Home Phone [...] [place], [place] | | | | | [address] | | + + + + + | Ellie Vang | ECON | Unknown | | + + + + + Care Team Providers + +------+ + | Care Director Weights And Measures Name | Role | Phone | + [...] + + | 02/07/ | Hospital | [address] | Milana Landaverde, | | | 2014 - | Encounter | [address] | [address] | | | | | [place], [place] | [address] | | | 02/08/ | | [address] | [place], [place] | | | 2013 | | [phone] | [address] | | | | | | [phone] | | | | | | | [...] the resident s note. PRADIP STARR MD [facility] [address] [facility] [place] [address] orrMaryam hill MD - 1:05 PM PDT [facility] DEPARTMENT OF SURGERY EMERGENCY GENERAL SURGERY Division of Trauma and Critical Care INPATIENT PROVIDER DISCHARGE SUMMARY Note Date: 02/08/2014 Admission Date: 02/07/2014 DYLAN ROMERO, Discharge Date: 08 Feb 2014 PCP: Fadi Goodrich DO Attending Physician: Milana Landaverde MD Author: MARYAM RHODES MD HPI: Dylan Romero is a 38 y.o. Female with morbid obesity, bipolar disorder and Type 2 DM who presented to the [facility] ED ([place], [place]) on 02/06/14, with a week hi story of RUQ abdominal pain that radiates to her back. There, she was found to have leukocyt osis and multiple tiny, mobile stones, + sonographic Peterson's sign on abdominal ultrasound, concerning for acute cholecystitis. She was givenIV antibiotics (cipro, flagyl) and pain med s, then transferred to [facility] by [facility] for further care. Ms. Romero endorsed [...] with Trauma Emergency General Surgery at [facility] In 4 weeks. (follow up in 2-4 weeks ) Contact information [address] [facility] Mailcode: L223a [facility] [address] [place] [address] Thank you for the [...] the resident s note. PRADIP STARR MD [facility] [address] [place] [address] orrMaryam hill MD - 5:17 AM PDT [facility] DEPARTMENT OF SURGERY EMERGENCY GENERAL SURGERY Division [...] tolerated MARYAM RHODES MD PGY-1, General Surgery [phone] pager number [facility] A [address] [facility] [place] [address] documented in this encoun ter Plan of Treatment +--------+---------+ + + + | Date | Type | Specialty | Care Team | Description | +--------+---------+ + + + | 03/15/ | Office | Cardiology | Randell Franks, | | | 2019 | Visit | | [address] | | | | | | [place], [place] | | | | | | [address] | | | | | | [phone] | | | | | | | [...] AMES | [address] | [place], [place] | | | JUSTINE DAWN OF JAKY | [facility] | [address] | | | TESTS | | | [...] MARQUAM | [address] | [place], [place] | | | JUSTINE DAWN OF CARE | [address] | [address] | | | TESTS | | | [...] (H) | 60 - 99 mg/dL | [facility] - | | | GLUCOSE, | | [...] YAKOVAM | [address] | [place], [place] | | | JUSTINE DAWN OF JAKY | [address] | [address] | | | TESTS | | | [...] AMES | [address] | [place], [place] | | | JUSTINE DAWN OF JAKY | [facility] | [address] | | | TESTS | | | [...] [facility] | [address] | [place] [address] | | | SERVICES, | [address] [...] [facility] | [address] | [place] [address] | | | SERVICES, | [address] [...] MARQUAM | [address] | [place], [place] | | | JUSTINE DAWN OF JAKY | [address] | [address] | | | TESTS | | | [...] LABORATORY | [address] | [place] [address] | | | SERVICES, CORE | CLARENCE [...] + | [facility] | [address] [facility] | [place] [address] | | | SERVICES, CORE | [address] [...] DIVISION LABORATORY | [address] | [place] [address] | | | SERVICES, CORE | P[address] [...] [facility] | [address] [facility] | [place] [address] | | | SERVICES, CORE | CLARENCE [...] | | | LABORATORY | | | DANISH | | | SERVICES, | | | [...] HEALTHCARE HOSPITAL | [address] | [place] [address] | | | SERVICES, CORE | CLARENCE [...] AMES | [address] | [place], [place] | | | JUSTINE DAWN OF JAKY | [address] | [address] | | | TESTS | | | [...] pattern. | | | | | | Research Intern | | | | | | sections [...] | + + + + + | [facility] | [address] | [place] [address] | | | PATHOLOGY | [address] [...]
--- OUTSIDE RECORDS SUMMARY | ~2019-12-19 | XMS | Encounter Summary ---
Demographics + + + | Address | [address] | | | [place] [address] | + + + | Home Phone [...] [place], [place] | | | | | [address] | | + + + + + | Ellie Vang | ECON | Unknown | | + + + + + Care Team Providers + +------+ + | Care Playground Director Name | Role | Phone | + +------+ + | Kenyatta Cardenas MD | PCP | | + +------+ + Encounter Details +--------+ + + + + | Date | Type | Department | Care Team | Description | +--------+ + + + + | 03/18/ | Transcribe | NKECHI alonso [facility] | Transcribe | | | 2019 | Orders | [facility] [address] | Encounter, Provider, | | | | | Farris Alma Delia Mailcode: | [address] | | | | | [address] | [place] [address] | | | | | Health and Healing, | | | | | | Building [address] | | | | | | [place], [place] | | | | | | [address] | | | | | | [phone] | | | +--------+ + + + [...] [address] | | | | | | [place], [place] | | | | | | [address] | | | | | | [phone] | | | | | | | | +--------+---------+ + + + documented as of this encounter Results EGD (04/07/2019 10:53 AM PDT) + + | Specimen | + + | | + + + + + | Narrative | Performed At | + + + | MRN: | [facility] | | [id number] Date: 04/07/2019Patient Name: Elzbieta Curtis #: | ENDOSCOPY | | [id number] of : 1975CSN: [id number] Type: | | | AmbulatoryRoom: Endo 5Procedure: Upper GI | | | endoscopyIndications: Generalized abdominal pain, Nausea | | | with vomitingProviders: TAL LUND MD | | | (Doctor), BERNARDO BERNARD RN (Nurse), | | | GENECRE [employer] (Quail Farmer)Referring MD: SYLVIA Kilpatrick | | | RASTA [...] | | | The Olympus [id number] Endoscope #[id number] | | | was introduced through the [...] + + | Performing | Address | City/State[facility] | Phone Number | | Organization [...]
--- OUTSIDE RECORDS SUMMARY | ~2019-12-19 | XMS | Encounter Summary ---
Demographics + + + | Address | [address] | | | [place] [address] | + + + | Home Phone [...] | Organization | [facility] [...] Providers + +------+ + | Care Carton Waxing Machine Operator Name | Role | Phone [...] Closed | | Radiology | Diagnoses | [place], | [facility] | | | | | Deep vein | Dharmesh | Intra Op [address] | | | | | thrombosis | MD Natan | [address] | | | | | (DVT) of | [address] | [place], [place] | | | | | left lower | [address] | [address] | | | | | extremity, | Roshan E | Phone: | | | | | unspecified | [place], [place] | [phone] | | | | | chronicity, | [address] | Fax: | | | | | unspecified | Phone: | [phone] | | | | | vein (HCC) | [phone] | | | | | | Procedures | Fax: | | | | | | IR Removal | [phone] | | | | | | Fibrin [...] + + | 06/14/ | Telephone | [facility] | Dharmesh Fierro, | Procedure | | 2019 | | INTERVENTIONAL | RN | | | | | RADIOLOGY [address] | | | | | | [address] | | | | | | [place], [place] | | | | | | [address] | | | | | | [phone] | | | +--------+ + + + [...] RICHEY | | | | | | [place] [address] | | | | | | [phone] | | | | | | | [...]
--- OUTSIDE RECORDS SUMMARY | ~2019-12-19 | XMS | Encounter Summary ---
[...] [place], [place] | | | | | [address] | | + + + + + [...] | HA Rold[address] | | | with AUDIO VISUAL DIRECTOR | | hypertension | [address] | [address] | | | | | Right | [address] | [place] | | | | | heart | [place], [place] | [place], | | | | | failure | [address] | [place] | | | | | ([facility]) Type | Phone: | [address] | | | | | 2 diabetes | [phone] | | | | | | mellitus | Fax: | | | | | | without | [phone] | | | | | | complication [...] | Visit | Center at [facility] [address] [facility] | gastric bypass | | | | [facility] | [address] | (Primary Dx); | | | | for [employer] and | [place], [place] | 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[facility], [place] [address] | [address] | 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[place], [place]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) | | | | [address] | | | | | | [phone] | | | +--------+---------+ + + + [...] Follow-Up Patient referred by: Randell Franks MD [address] [place] [address] Documented time of visit: 2:36pm to 2:49 (13 minutes wejy-gp-ihfm with patient) Surgery: Gastric Bypass Date of [...] Medications since surgery: oral - appt with shoe dresser on the Testing blood glucose: 92 mg/dl [...] beef, cream of wheat, cream of mushroom, turkmen yogurt Fluid choices: water Supplementation: Flinstones, iron, [...] multivitamin & mineral (with iron) supplement, 2/day -9928-2607 mg calcium citrate with vitamin D/day (take in divided doses, not within 2 hour s of multivitamin or iron supplement) -500 mcg/day sublingual B12 supplement (or monthly injections) Continued to reinforce importance of mindful eating. Continue to increase physical activity. Follow up in 3 months or earlier as needed. Tejas Cevallos RD, LD Pager # [phone] signed by Tejas Cevallos RD at 05/27/2018 [...] [place] | | | | | | [address] | | | | | | [phone] | | | | | | | | +--------+---------+ + + + documented as of this encounter Procedures + +--------+ + + + | Procedure Name | Priori | Date/Time | Associated Diagnosis | Comments | | | ty | | | | + +--------+ + + + | HI MNT RE-ASSESSMNT | Routin | 05/27/2018 | [...]
--- OUTSIDE RECORDS SUMMARY | ~2019-12-19 | XMS | Encounter Summary ---
Demographics + + + | Address | [address] | | | [place] [address] | + + + | Home Phone [...] + | Katalina Padilla | ECON | [address] | | | | | [place], [place] | | | | | [address] | | + + + + + | Ellie Vang | ECON | Unknown | | + + + + + Care Team Providers + +------+ + | Care Spray Machine Tender Name | Role | Phone [...] | | | Procedures | | Rd [place], | | | | | [place] MNT | | [place] | | | | | INITIAL | | [address] | | | | | ASSESSMNT | | | | | | | X15MIN HI | | | | | | [...] 2012 | Visit | Center at [facility] [address] | [address] [facility] | mellitus (HCC) | | | | [facility] | [address] | (Primary Dx); Morbid | | | | for Health and | [place], [place] | obesity (HCC) | | | | [place] [address] | [address] | | | | | [place], [place] | | | | | | [address] | | | | | | [phone] | | | +--------+---------+ + + + [...] PDTNutrition appointment, -try keeping food logs online: -www.[employer] -Aim for 4302-4070 calories a day -Increase physical activity -try [...] appropriate portions. Denies any binge eating. 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 Up [...] 1000/d--a more appropriate long-term range would be 0686-7032/day. Inadequat e calcium intake; did not address [...] w/ meals & snacks 2. Aim for 5632-7995 kcal/d 3. Keep food logs (at least [...] needed. Olga Lidia [address] RD, [place] Pager [phone] documented in this en counter Plan of Treatment +--------+---------+ + + + | Date | Type | Specialty | Care Team | Description | +--------+---------+ + + + | 03/15/ | Office | Cardiology | Randell Franks, | | | 2019 | Visit | | [address] | | | | | | [place], [place] | | | | | | [address] | | | | | | [phone] | | | | | | | | +--------+---------+ + + + documented as of this encounter Procedures + +--------+ + + + | Procedure Name | Priori | Date/Time | Associated Diagnosis | Comments | | | ty | | | | + +--------+ + + + | HI MNT INITIAL | Routin | 04/14/2013 | [...]
--- OUTSIDE RECORDS SUMMARY | ~2019-12-19 | XMS | Encounter Summary ---
Demographics + + + | Address | [address] | | | [place] [address] | + + + | Home Phone [...] [place], [place] | | | | | [address] | | + + + + + | Ellie Vang | ECON | Unknown | | + + + + + Care Team Providers + +------+ + | Care Mud Mixer Helper Name | Role | Phone | [...] | | | | | | Loop [place], [place] | | | | | | [address] | | | | | | [phone] | | | +--------+ + + + [...] [address] | | | | | | [place], [place] | | | | | | [address] | | | | | | [phone] | | | | | | | | +--------+---------+ + + + documented as of this encounter Visit Diagnoses Not on filedocumented in this encounter"
--- OUTSIDE RECORDS SUMMARY | ~2019-12-19 | XMS | Encounter Summary ---
Demographics + + + | Address | [address] | | | [place] [address] | + + + | Home Phone [...] [place], [place] | | | | | [address] | | + + + + + | Ellie Vang | ECON | Unknown | | + + + + + Care Team Providers + +------+ + | Care Inside Sales Engineer Name | Role | Phone | [...] | Center at [facility] [address] | | (Primary Dx) | | | | [address] | | | | | | Mailcode: [place] | | | | | | Health and | | | | | | [facility] 2 | | | | | | [place], [place] | | | | | | [address] | | | | | | [phone] | | | +--------+---------+ + + + [...] of Class: 1055 until 1155 (60 minutes wxwy-wq-rpll with patient) Teaching Methods: PowerPoint and verbal [...] a journal with fluid/protein d. Transportation 7. [facility] 8. Surgical [...] [address] | | | | | | [place], [place] | | | | | | [address] | | | | | | [phone] | | | | | | | | +--------+---------+ + + + documented as of this encounter Visit Diagnoses + + | Diagnosis | + + | Morbid obesity (HCC) - Primary Morbid obesity | + + documented in this encounter"
--- OUTSIDE RECORDS SUMMARY | ~2019-12-19 | XMS | Encounter Summary ---
Demographics + + + | Address | [address] | | | [place] [address] | + + + | Home Phone [...] [place], [place] | | | | | [address] | | + + + + + | Ellie Vang | ECON | Unknown | | + + + + + Care Team Providers + +------+ + | Care Broadband Engineer Name | Role | Phone | [...] [place] | | | | | | [address] | | | | | | [phone] | | | | | | | | +--------+---------+ + + + documented as of this encounter Visit Diagnoses Not on filedocumented in this encounter"
--- OUTSIDE RECORDS SUMMARY | ~2019-12-19 | XMS | Encounter Summary ---
Demographics + + + | Address | [address] | | | [place] [address] | + + + | Home Phone [...] [place], [place] | | | | | [address] | | + + + + + | Ellie Vang | ECON | Unknown | | + + + + + Care Team Providers + +------+ + | Care Steeping Press Tender Name | Role | Phone [...] | Pain | Diagnoses | Analisa Georges Hose Maker Psych | | | | Management | Morbid | DANIELLE BrunerP | [address] | | | | | obesity with | [address] | | | | | BMI of [address] | [address] | Mailcode: | | | | | and over, | [place], [place] | [facility] | | | | | adult (HCC) | [address] | for Health | | | | | Procedures | Phone: | and Healing, | | | | | CONSULT TO | [phone] | Building 1, | | | | | PAIN | Fax: | 15th Floor | | | | | MANAGEMENT | [phone] | [place], [place] | | | | | [place] | | [address] | | | | | PSYCHIATRIC | | Phone: | | | | | DIAGNOSTIC | | [phone] | | | | | EVAL, NO MED | | Fax: | | | | | [facility] [place] | | [phone] | | | | | PSYCH TSTNG [...] | Bariatri Surg | | | with PHYSICAL THERAPY ASSISTANT INSTRUCTOR | | hypertension | [address] | [address] | | | | | Right | [address] | [address] | | | | | heart | [place], [place] | Mailcode: | | | | | failure | [address] | Center for | | | | | ([facility]) Type | Phone: | Health and | | | | | 2 diabetes | [phone] | Healing, | | | | | mellitus | Fax: | Building 2 | | | | | without | [phone] | [place], [place] | | | | | complication | | [address] | | | | | , with | | Phone: | | | | | long-term | | [phone] | | | | | current use | | Fax: | | | | | of insulin | | [phone] | | | | | ([facility]) | | | | | [...] | | [address] | Ave [place], [place] | adult ([facility]) (Primary | | | | Mailcode: Center | [address] | Dx); Chronic | | | | for Health and | | diastolic heart | | | | Healing, Building 2 | | failure ([facility]); | | | | [place], [place] | | Immobility; 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 These classes will be scheduled apporoximately 1 month apart to allow time for you to put the teaching into action. Please call [phone] + Labs needed: Pre op: drug screen [...] are done + EKG: Please Have your manager therapy do the eval and send it to us + Pre-op Psychological Evaluation: Your referral is at [facility], The Pain Management Office will call [...] be safely completed. + Sign up for [employer] so that we can communicate easily back and forth Once the above list is completed and copies have been received by our office, we will submi t for insurance authorization then schedule with the surgeon. KAIN De Dios DNP, SERVICE ATTENDANT Nurse Practitioner for Bariatric Surgery [facility] | [address] | [place], [place] | [address] | documented in this encounter Progress Notes Shereen Georges ACNP - 02/02/2017 9:00 AM PDTFormatting of this note might be different f rom the original. BARIATRIC INITIAL VISIT Provider: Shereen Pinto DNP, KAIN, SERVICE ATTENDANT Referring Provider: Fadi Goodrich DO Reason for [...] t loss. Consults: Cardiology: [facility]. Edson [facility] Lap Grinder: Nickie : [facility] Paula But comes to magen Turbo Generator Oiler at [facility]: Dr. Zhong for weight loss medication Tenriism or cultural reason you would refuse blood [...] once daily., Disp : , Rfl: CALCIUM [id number]-[id number]-BTT30-GENIS ORAL, Take 2 tablets by mouth two [...] History Narrative Updated 11/09/15 She lives in [place] with her mother and her sister (also her caregiver) lives in an [facility] below. She has 2 grandchildren (age 4 and 7) who live with her daughter and son-in-law Her boyfriend lives in [place] Family History Problem Relation Heart Attack Father [...] years without success. She qualifies [facility] to control co-morbidities. Elzbieta [...] management, and was referred as well to buildings and grounds director. Plan: Request that her manager therapy clear her, and make recommendations 3. Mammogram: [...] to your private appointme nt with the felling bucking supervisor. These classes will be scheduled apporoximately 1 month apart to allow time for you to put the teaching into action. Please call [phone] + Labs needed: lipids, CBC, CMP, TSH, [...] are done + EKG: Please Have your manager therapy do the eval and send it to us + Pre-op Psychological Evaluation: Your referral is at [facility], The Pain Management Office will call [...] be safely completed. + Sign up for [employer] so that we can communicate easily back and forth Once the above list is completed and copies have been received by our office, we will submi t for insurance authorization then schedule with the surgeon. KAIN De Dios DNP, SERVICE ATTENDANT Nurse Practitioner for Bariatric Surgery [facility] | [address] | [place], [place] | [address] | documented in this encounter Plan of Treatment +--------+---------+ + + + | Date | Type | Specialty | Care Team | Description | +--------+---------+ + + + | 03/15/ | Office | Cardiology | Randell Zhong, | | | 2019 | Visit | | MD [address] | | | | | | [place], [place] | | | | | | [address] | | | | | | [phone] | | | | | | | [...]
--- OUTSIDE RECORDS SUMMARY | ~2019-12-19 | XMS | Encounter Summary ---
Demographics + + + | Address | [address] | | | [place] [address] | + + + | Home Phone [...] [place], [place] | | | | | [address] | | + + + + + | Ellie Vang | ECON | Unknown | | + + + + + Care Team Providers + +------+ + | Care Boiler Fitter Name | Role | Phone | [...] | | | | | | [place], [place] | | | | | | [address] | | | | | | [phone] | | | +--------+ + + + [...] [address] | | | | | | [facility] [place] | | | | | | [address] | | | | | | [phone] | | | | | | | | +--------+---------+ + + + documented as of this encounter Visit Diagnoses Not on filedocumented in this encounter"
--- OUTSIDE RECORDS SUMMARY | ~2019-12-19 | XMS | Encounter Summary ---
Demographics + + + | Address | [address] | | | [place] [address] | + + + | Home Phone [...] [place], [place] | | | | | [address] | | + + + + + | Ellie Vang | ECON | Unknown | | + + + + + Care Team Providers + +------+ + | Care Neonatal Intensive Care Nurse Name | Role | Phone | + +------+ + | Kenyatta Cardenas MD | PCP | | + +------+ + Encounter Details +--------+ + + + + | Date | Type | Department | Care Team | Description | +--------+ + + + + | 03/01/ | Procedure | Diagnostic Imaging | | | | 2019 | Pass | Services at [facility] | | | | | | [address] | | | | | | Lesly [address] | | | | | | [facility], [address] [place] [address] | | | | | | [place], [place] | | | | | | [address] | | | | | | [phone] | | | +--------+ + + + [...] [address] | | | | | | [place], [place] | | | | | | [address] | | | | | | [phone] | | | | | | | | +--------+---------+ + + + documented as of this encounter Visit Diagnoses Not on filedocumented in this encounter"
--- OUTSIDE RECORDS SUMMARY | ~2019-12-19 | XMS | Encounter Summary ---
Demographics + + + | Address | [address] | | | [place] [address] | + + + | Home Phone [...] [place], [place] | | | | | [address] | | + + + + + | Ellie Vang | ECON | Unknown | | + + + + + Care Team Providers + +------+ + | Care Intellectual Property Lawyer Name | Role | Phone | [...] | | | | | obstruction | [place], | Mailcode: | | | | | or gangrene | [place] | Center for | | | | | Abdominal | [address] | Health and | | | | | pain, | Phone: | Healing, | | | | | unspecified | | Building 2 | | | | | abdominal | Fax: | [place], [place] | | | | | location | [phone] | [address] | | | | | Procedures | | Phone: | | | | | CONSULT TO | | [phone] | | | | | SURGERY - | | Fax: | | | | | GENERAL | | [phone] | +--------+--------+ + + + + Encounter [...] | [address] | Ave [place], [place] | | | | | Mailcode: [place] | [address] | | | | | [facility] and | | | | | | [facility] 2 | | | | | | [facility] [place] | | | | | | [address] | | | | | | | [...] | | | | | | [place], [place] | | | | | | [address] | | | | | | [phone] | | | | | | | [...]
--- OUTSIDE RECORDS SUMMARY | ~2019-12-19 | XMS | Encounter Summary ---
Demographics + + + | Address | [address] | | | [place] [address] | + + + | Home Phone [...] [place], [place] | | | | | [address] | | + + + + + | Ellie Vang | ECON | Unknown | | + + + + + Care Team Providers + +------+ + | Care Fuel Cell Engineer Name | Role | Phone | [...] | [place]OCK Roldan | | | with FOREIGN DIPLOMAT | | hypertension | [address] | | | | | Right | [address] | [place] | | | | | heart | [place], [place] | [place], | | | | | failure | [address] | [place] | | | | | ([facility]) Type | Phone: | [address] | | | | | 2 diabetes | [phone] | | | | | | mellitus | Fax: | | | | | | without | [phone] | | | | | | complication [...] | 2017 | Visit | Center at [facility] 3485 | [address] | BMI of 70 and over, | | | | 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 Food [...] post-surgery diet progression. 4. Call or send [employer] message to dietitian with any questions. Contact information was provided. Follow up with dietitian prior to surgery (take 2 Weight management classes as part of [facility]). [address], [facility], LD [facility] Bariatrics [phone] documented in this enco unter Plan of Treatment +--------+---------+ + + + | Date | Type | Specialty | Care Team | Description | +--------+---------+ + + + | 03/15/ | Office | Cardiology | Randell Franks, | | | 2019 | Visit | | [address] | | | | | | [place], [place] | | | | | | [address] | | | | | | [phone] | | | | | | | | +--------+---------+ + + + documented as of this encounter Procedures + +--------+ + + + | Procedure Name | Priori | Date/Time | Associated Diagnosis | Comments | | | ty | | | | + +--------+ + + + | [place] MNT RE-ASSESSMNT | Routin | 02/02/2017 | [...]
--- OUTSIDE RECORDS SUMMARY | ~2019-12-19 | XMS | Encounter Summary ---
Demographics + + + | Address | [address] | | | [place] [address] | + + + | Home Phone [...] + | Katalina Padilla | ECON | [address] | | | | | [place], [place] | | | | | [address] | | + + + + + | Ellie Vang | ECON | Unknown | | + + + + + Care Team Providers + +------+ + | Care Brick Maker Name | Role | Phone | [...] | | | | | | [place], [place] | | | | | | [address] | | | | | | [phone] | | | +--------+ + + + [...] [address] | | | | | | [place], [place] | | | | | | [address] | | | | | | [phone] | | | | | | | | +--------+---------+ + + + documented as of this encounter Visit Diagnoses Not on filedocumented in this encounter"
--- OUTSIDE RECORDS SUMMARY | ~2019-12-19 | XMS | Encounter Summary ---
Demographics + + + | Address | [address] | | | [place] [address] | + + + | Home Phone | | + + + | Preferred Language | Unknown | + + + | Marital Status | | + + + | Sikh Affiliation | Unknown | + + + | Race | Unknown | + + + | Ethnic Group | Unknown | + + + Author + + + | Author | [facility] | | | and Jeffana | + + + | Organization | [facility] | [...] Team Providers + +------+ + | Care Agronomy Advisor Name | Role | Phone | [...] + + | 06/21/ | Telephone | [facility] | Christian Dawson, | Pre-Op (confirm | | 2019 | | CENTER CV INTRA OP | MD Saumya Pandya | arrival for 06/22 | | | | [address] | [address] | procedure) | | | | [place], [place] | [place] [address] | | | | | [address] | [phone] | | | | | [phone] | | | +--------+ + + + [...] | 2020 | Visit | | Toshia, [employer]GAN REFINISHER [address] | | | | | | [address] | | | | | | [place] [address] | | | | | | [phone] | | | | | | | | +--------+---------+ + + + documented as of this encounter Visit Diagnoses Not on filedocumented in this encounter"
--- OUTSIDE RECORDS SUMMARY | ~2019-12-19 | XMS | Encounter Summary ---
Demographics + + + | Address | [address] | | | [place] [address] | + + + | Home Phone [...] + | Katalina Padilla | ECON | [address] | | | | | [place], [place] | | | | | [address] | | + + + + + | Ellie Vang | ECON | Unknown | | + + + + + Care Team Providers + +------+ + | Care Manager Risk Name | Role | Phone | + +------+ + | Fadi Goodrich DO | PCP | | + +------+ + Encounter Details +--------+ + + + + | Date | Type | Department | Care Team | Description | +--------+ + + + + | 07/06/ | Abstract | Digestive Health | Shereen Georges, | | | 2012 | | Center at [facility] [address]26 | ACNP [address] | | | | | [address] | [address] [place], [place] | | | | | Mailcode: [place] | [address] | | | | | for Health and | | | | | | [facility] 2 | | | | | | [facility] [place] | | | | | | [address] | | | | | | | [...] | | | | | | [place], [place] | | | | | | [address] | | | | | | [phone] | | | | | | | | +--------+---------+ + + + documented as of this encounter Visit Diagnoses Not on filedocumented in this encounter"
--- OUTSIDE RECORDS SUMMARY | ~2019-12-19 | XMS | Encounter Summary ---
Demographics + + + | Address | [address] | | | [place] [address] | + + + | Home Phone [...] [place], [place] | | | | | [address] | | + + + + + | Ellie Vang | ECON | Unknown | | + + + + + Care Team Providers + +------+ + | Care Hand I Blocker Name | Role | Phone | + +------+ + | Fadi Goodrich DO | PCP | | + +------+ + Encounter Details +--------+------+ + + + | Date | Type | Department | Care Team | Description | +--------+------+ + + + | 10/12/ | Lab | Laboratory at [facility] | | | | 2019 | | [address] | | | | | | [place], [place] | | | | | | [address] | | | | | | [phone] | | | +--------+------+ + + + [...] | 2020 | Visit | | [address] | | | | | | [place], [place] | | | | | | [address] | | | | | | [phone] | | | | | | | [...] + | [facility] | [address] | [place] [address] | | | CLAIRE, LYDIA | CLARENCE [...] INTFC | | | | determined by [email or web address] | | | | | | [employer]. See | | | | | | Compliance Statement B: | | | | | | iScreen Vision/CSPerformed | | | | | | by [address] | | | | | | [facility] | | | | | | [address] | | | | | | [phone].[employer]. | | | | | | CCM BenchmarkIsmael MD, | | | | | | [...] [facility] | [address] | [place], [place] | | | UNIV PTH - INTFC | | [address] | | + + + + + ZINC, SERUM (10/12/2018 3:29 PM PDT) + + + + + + | Component | Value | Ref Range | Performed | Pathologist | | | | | At | Signature | + + + + + + | ZINC SERUM | 58 (L)Comment: | 60 - 120 ug/dL | [facility] | | | | INTERPRETIVE | [...] | | | | | determined by [email or web address] | | | | | | Laboratories. See | | | | | | Compliance Statement B: | | | | | | iScreen Vision/CSPerformed | | | | | | by [address] | | | | | | Natalia Martinez, [facility] | | | | | | [address] | | | | | | [phone].[employer]. | | | | | | Ismael [...] | + + + + + | [facility] | [address] | [place], [place] | | | UNIV PTH - INTFC | | [address] | | + + + + + [...] [facility] | | | (YEN NOAH) | [facility],[address] | | REG UNIV | | | SERUM | Natalia Martinez [facility] | | PTH - INTFC | | | | [address] | | | | | | [phone]. | | | | | | Ismael [...] [facility] | | | | | | [employer]. See | | | | | | Compliance Statement B: | | | | | | [employer]/CS | | | | + + + + + + + + | Specimen | + + | Blood - Blood | | (substance) | + + + + + + + | Performing | Address | City/State/Zipcode | Phone Number | | Organization | | | | + + + + + | [facility] | [address] | [place], [place] | | | UNIV PTH - INTFC | | [address] | | + + + + + [...] [facility] | [address] | [place] [address] | | | LYDIA RANGEL | CLARENCE [...] [facility] | [address] | [place] [address] | | | CLAIRE, LYDIA | CLARENCE [...] | | | | | determined by [email or web address] | | | | | | Laboratories. See | | | | | | Compliance Statement B: | | | | | | [employer].CCM Benchmark/CSPerformed | | | | | | by [address] | | | | | | [facility] | | | | | | [address] | | | | | | [phone].[employer]. | | | | | | com, [...] [facility] | [address] | [place], [place] | | | UNIV PTH - INTFC | | [address] | | + + + + + [...] | [facility] | [address] | [place] [address] | | | SERVICES, CORE | PARK [...] | | | | | determined by [email or web address] | | | | | | Laboratories. See | | | | | | Compliance Statement B: | | | | | | [employer].CCM Benchmark/CSPerformed | | | | | | by [address] | | | | | | [facility] | | | | | | [address] | | | | | | [phone].[employer]. | | | | | | com, Ismael Willis MD, | | | | | | Lab. Director | | | | + + + + + + + + | Specimen | + + | Blood - Blood | | (substance) | + + + + + + + | Performing | Address | City/[facility] | Phone Number | | Organization | | | | + + + + + | [facility] | [address] | [place], [place] | | | UNIV PTH - INTFC | | [address] | | + + + + + [...] [facility] | [address] | [place] [address] | | | SERVICES, CORE | PARK [...] [facility] | [address] | [place] [address] | | | SERVICES, SPECIAL | PARK [...] | [facility] | [address] | [place] [address] | | | LYDIA RANGEL | CLARENCE [...] at | | | | | | [email or web address] | | | | | | med by [facility] | | | | | | [facility],[address] | | | | | | [place] [address] | | | | | | [phone].[employer]. | | | | | | [facility] hospitalIsmael MD, | | | | [...] [facility] | [address] | [place], [place] | | | UNIV PTH - INTFC | | [address] | | + + + + + [...] | | | LABORATORY | | | GUINEAN | | | SERVICES, | | [...] [facility] | [address] | [place] [address] | | | SERVICES, LYDIA | CLARENCE BONNER | | | + + + + + documented in this encounter Visit Diagnoses Not on filedocumented in this encounter"
--- OUTSIDE RECORDS SUMMARY | ~2019-12-19 | XMS | Encounter Summary ---
Demographics + + + | Address | [address] | | | [place] [address] | + + + | Home Phone [...] [place], [place] | | | | | [address] | | + + + + + | Ellie Vang | ECON | Unknown | | + + + + + Care Team Providers + +------+ + | Care Entry Level Assistant Manager Name | Role | Phone [...] 2012 | | Center at [facility] 3485 | MD [address] | | | | | [address] | [facility] | | | | | Mailcode: [place] | [place], [place] | | | | | [facility] Health and | [address] | | | | | [facility] 2 | [phone] | | | | | [place], [place] | | | | | | [address] | | | | | | [phone] | | | +--------+ + + + [...] | | | | | | [place], [place] | | | | | | [address] | | | | | | [phone] | | | | | | | | +--------+---------+ + + + documented as of this encounter Visit Diagnoses Not on filedocumented in this encounter"
--- OUTSIDE RECORDS SUMMARY | ~2019-12-19 | XMS | Encounter Summary ---
Demographics + + + | Address | [address] | | | [place] [address] | + + + | Home Phone [...] [place], [place] | | | | | [address] | | + + + + + | Ellie Vang | ECON | Unknown | | + + + + + Care Team Providers + +------+ + | Care Food And Beverage Cashier Name | Role | Phone | [...] | | | | | Procedures | [place], [place] | | | | | | TRANSTHORACI | [address] | | | | | | C | Phone: | | | | | | ECHOCARDIOGR | [phone] | | | | | | AM, ADULT | Fax: | | | | | | | [phone] | | +--------+--------+ + + + + [...] | 2016 | Visit | Preventive at [facility] | [address] | exertion) (Primary | | | | [address] | [place], [place] | Dx) | | | | Mailcode: CH9A | [address] | | | | | [facility] | [phone] | | | | | and [address], | | | | | | Building [address] | | | | | | [place], [place] | | | | | | [address] | | | | | | [phone] | | | +--------+---------+ + + + [...] 500 mg by mouth once daily. CALCIUM CRB&TPP-P5-DFK33-GENIS ORAL Take 1 tablet by mouth two [...] himself to the local hospit al in [place] and so this has been delayed. ROS: [...] [place] | | | | | | [address] | | | | | | [phone] | | | | | | | [...]
--- OUTSIDE RECORDS SUMMARY | ~2019-12-19 | XMS | Encounter Summary ---
Demographics + + + | Address | [address] | | | [place] [address] | + + + | Home Phone [...] [place], [place] | | | | | [address] | | + + + + + | Ellie Vang | ECON | Unknown | | + + + + + Care Team Providers + +------+ + | Care Wood Molder Name | Role | Phone | [...] | | | | | | | [address] | | | | | | | [address] | | | | | | | [place], | | | | | | | [place] | | | | | | | [address] | | | | | | | Phone: | | | | | | | [phone] | | | | | | | Fax: | | | | | | | [phone] | +--------+--------+ + + + + Encounter Details +--------+---------+ + + + | Date | Type | Department | Care Team | Description | +--------+---------+ + + + | 04/14/ | Office | Digestive Health | Hernandez Brian, | Morbid obesity (HCC) | | 2013 | Visit | [facility] at [facility] | [address] [facility] | (Primary Dx); Type | | | | [address] | [address] | 2 diabetes mellitus | | | | Mailcode: Center | [place], [place] | ([facility]); [facility] | | | | for Health and | [address] | (obstructive sleep | | | | [facility] 2 | [phone] | apnea); Edema | | | | [place], [place] | | | | | | [address] | | | | | | [phone] | | | +--------+---------+ + + + [...] this year, she was tr ansferred from [place] for surgical evaluation of possible incarcerated ventral [...] with close followup by her PCP in [place] in the interim. Dr. Guillory in [place] has been following her since January, with CT scan obtained at [facility] in [place] 02/09/2013 (images in IMPAX), demonstrating "recurrent hypogastric [...] to follow up with her providers at [facility] to include a visi t to our [...] r weight loss efforts. She saw a submarine diver today and Melida came in to discuss [...] and well perfused. ABDOMEN: Type III pannus skilled nursing to her knees. There is a well [...] [address] | | | | | | [place], [place] | | | | | | [address] | | | | | | [phone] | | | | | | | [...]
--- OUTSIDE RECORDS SUMMARY | ~2019-12-19 | XMS | Encounter Summary ---
Demographics + + + | Address | [address] | | | [place] [address] | + + + | Home Phone [...] [place], [place] | | | | | [address] | | + + + + + | Ellie Vang | ECON | Unknown | | + + + + + Care Team Providers + +------+ + | Care Building Trades Instructor Name | Role | Phone | [...] | Event | Medicine Clinic at | [place], [place] | | | | | [facility] | [address] | | | | | [address] | | | | | | Mail Code: OC8PM | | | | | | [facility] | | | | | | and Healing, | | | | | | Building [address] | | | | | | [place], [place] | | | | | | [address] | | | | | | [phone] | | | +--------+ + + + [...] [address] | | | | | | [place] | | | | | | [address] | | | | | | [phone] | | | | | | | | +--------+---------+ + + + documented as of this encounter Visit Diagnoses Not on filedocumented in this encounter"
--- OUTSIDE RECORDS SUMMARY | ~2019-12-19 | XMS | Encounter Summary ---
[...] [place], [place] | | | | | [address] | | + + + + + | Ellie Vang | ECON | Unknown | | + + + + + Care Team Providers + +------+ + | Care Activities Assistant Name | Role | Phone | [...] Physicians | | | | | | [facility] | [address] | | | | | | [place], [place] | Floor | | | | | | [address] | [place], [place] | | | | | | Phone: | [address] | | | | | | [phone] | Phone: | | | | | | | [phone] | | | | | | | Fax: | | | | | | | [phone] | +--------+--------+ + + + + Encounter [...] | [facility] [address] [place], | | | | | [address] | [place] [address] | | | | | Physicians [facility], | [phone] | | | | | 2nd Floor | | | | | | [place], [place] | | | | | | [address] | | | | | | [phone] | | | +--------+---------+ + + + [...] Axel Gonzales MD - 03/06/2014 1[facility] Attending: [...] a HIDA scan to be done in [place] to verify that she does not have a pos t-operative surgical complication. We will call her with the results of her labs and imagin g. If these all come back normal she will need to follow up with her PCP to address her elisa sea/vomiting. - CBC and LFT's today - HIDA scan ordered, to be done in [place] - Will call patient once results are back. If normal, no need for follow up with EGS. The patient was seen and examined with Dr. Starr who agrees with the above assessment and janina Gonzales MD PGY-2 General Surgery Resident Department of General Surgery Pager: [phone] I saw and evaluated the patient. I agree with the findings and the plan of care as dequan han in the resident s note. PRADIP STARR MD [facility] GENERAL SURGERY AT [facility] [address] [facility] Mailcode: [address] [place] [address] documented in this encoun ter Plan of Treatment +--------+---------+ + + + | Date | Type | Specialty | Care Team | Description | +--------+---------+ + + + | 03/15/ | Office | Cardiology | Randell Franks, | | | 2019 | Visit | | [address] | | | | | | [place], [place] | | | | | | [address] | | | | | | [phone] | | | | | | | [...] [facility] | [address] | [place] [address] | | | SERVICES, CORE | [address] | | | + + + + + documented in this encounter Visit Diagnoses + + | Diagnosis | + + | Cholecystitis - Primary Cholecystitis, unspecified | + + documented in this encounter
--- OUTSIDE RECORDS SUMMARY | ~2019-12-19 | XMS | Encounter Summary ---
Demographics + + + | Address | [address] | | | [place] [address] | + + + | Home Phone [...] Organization | [facility] | | | and [...] Providers + +------+ + | Care Area Supervisor Name | Role | Phone | + +------+ + | Jorje Hill | PCP | | + +------+ + Encounter Details +--------+ + + + + | Date | Type | Department | Care Team | Description | +--------+ + + + + | 06/17/ | Telephone | [facility] | Christian Dawson, | | | 2018 | | [facility] | [address] | | | | | [address] | [address] | | | | | [place], [place] | [place] [address] | | | | | [address] | [phone] | | | | | [phone] | | | +--------+ + + + [...] [address] | | | | | | [place] [address] | | | | | | [phone] | | | | | | | | +--------+---------+ + + + documented as of this encounter Visit Diagnoses Not on filedocumented in this encounter"
--- OUTSIDE RECORDS SUMMARY | ~2019-12-19 | XMS | Encounter Summary ---
Demographics + + + | Address | [address] | | | [place] [address] | + + + | Home Phone [...] [place], [place] | | | | | [address] | | + + + + + | Ellie Vang | ECON | Unknown | | + + + + + Care Team Providers + +------+ + | Care Heavy Forger Helper Name | Role | Phone [...] | | 2015 | | Preventive at [facility] | MD [address] | (phentermine 37.5 mg | | | | [address] | [place], [place] | ) | | | | Mailcode: [facility] | [address] | | | | | [facility] | [phone] | | | | | and [address], | | | | | | [address] | | | | | | [place], [place] | | | | | | [address] | | | | | | [phone] | | | +--------+--------+ + + + [...] [address] | | | | | | [place], [place] | | | | | | [address] | | | | | | [phone] | | | | | | | | +--------+---------+ + + + documented as of this encounter Visit Diagnoses Not on filedocumented in this encounter"
--- OUTSIDE RECORDS SUMMARY | ~2019-12-19 | XMS | Encounter Summary ---
Demographics + + + | Address | [address] | | | [place] [address] | + + + | Home Phone [...] [place], [place] | | | | | [address] | | + + + + + | Ellie Vang | ECON | Unknown | | + + + + + Care Team Providers + +------+ + | Care Local Company Intermodal Truck Driver Name | Role | Phone [...] | | 2012 | | Center at [facility] 3485 | MD [address] | | | | | [address] | [facility] | | | | | Mailcode: [place] | [place], [place] | | | | | [facility] and | [address] | | | | | [facility] 2 | [phone] | | | | | [place], [place] | | | | | | [address] | | | | | | [phone] | | | +--------+ + + + [...] [address] | | | | | | [place], [place] | | | | | | [address] | | | | | | [phone] | | | | | | | | +--------+---------+ + + + documented as of this encounter Visit Diagnoses Not on filedocumented in this encounter"
--- OUTSIDE RECORDS SUMMARY | ~2019-12-19 | XMS | Encounter Summary ---
Demographics + + + | Address | [address] | | | [place] [address] | + + + | Home Phone [...] [place], [place] | | | | | [address] | | + + + + + | Ellie Vang | ECON | Unknown | | + + + + + Care Team Providers + +------+ + | Care Jewelry Polisher Name | Role | Phone | + +------+ + | Fadi Goodrich DO | PCP | | + +------+ + Encounter Details +--------+ + + + + | Date | Type | Department | Care Team | Description | +--------+ + + + + | 03/04/ | Telephone | Digestive Health | Ion Pandey, | | | 2018 | | [place] [facility] [address] | MD [address] | | | | | [address] | [place], [place] | | | | | Mailcode: [place] | [address] | | | | | for Health and | | | | | | [facility] 2 | | | | | | [place], [place] | | | | | | [address] | | | | | | | [...] [address] | | | | | | [place], [place] | | | | | | [address] | | | | | | [phone] | | | | | | | | +--------+---------+ + + + documented as of this encounter Visit Diagnoses Not on filedocumented in this encounter"
--- OUTSIDE RECORDS SUMMARY | ~2019-12-19 | XMS | Encounter Summary ---
Demographics + + + | Address | [address] | | | [place] [address] | + + + | Home Phone | | + + + | Preferred Language | Unknown | + + + | Marital Status | | + + + | Jewish Affiliation | Unknown | + + + | Race | Unknown | + + + | Ethnic Group | Unknown | + + + Author + + + | Author | [facility] | | | and Jeffana | + + + | Organization | [facility] | [...] Providers + +------+ + | Care Passenger Attendant Name | Role | Phone | + +------+ + PCP | Unavailable | + +------+ + Encounter Details +--------+ + + + + | Date | Type | Department | Care Team | Description | +--------+ + + + + | 10/14/ | Orders Only | [facility] | Conversion | | | 2017 | | NEPRHOLOGY [place] | Transaction, | | | | | [address] | Provider Unknown | | | | | [address] [place], [place] | [phone] | | | | | [address] | (Fax) | | | | | [phone] | | | +--------+ + + + [...] [address] | | | | | | [place] [address] | | | | | | [phone] | | | | | | | [...]
--- OUTSIDE RECORDS SUMMARY | ~2019-12-19 | XMS | Encounter Summary ---
Demographics + + + | Address | [address] | | | [place] [address] | + + + | Home Phone [...] [place], [place] | | | | | [address] | | + + + + + | Ellie Vang | ECON | Unknown | | + + + + + Care Team Providers + +------+ + | Care Electrical Maintenance Engineer Name | Role | Phone | [...] floor | | | | | | [place], [place] | | | | | | [address] | | | +--------+ + + + [...] | | | | | | [facility] [place] | | | | | | [address] | | | | | | [phone] | | | | | | | | +--------+---------+ + + + documented as of this encounter Visit Diagnoses Not on filedocumented in this encounter"
--- OUTSIDE RECORDS SUMMARY | ~2019-12-19 | XMS | Clinical Summary ---
Demographics + + + | Address | [address] | | | [place] [address] | + + + | Home Phone [...] | [facility] | | [...] Providers + +------+ + | Care Train Announcer Name | Role | Phone | [...] 0 | | | Activ | | Xjxagqt-Mhqwbhmxa-Vs | mouth 2 times daily. | | [...] | + + + +---------+------+------+-------+ | thyroid (RN TRIAGE | RN TRIAGE Thyroid 30 mg | | 0 | [...] 0 | | | Activ | | (MAXALT-SENIOR LINUX ENGINEER) 5 mg | as needed for | [...] x | | 30 October 2015 [facility] Assessment & Plan: Hgb appears to [...] obesityPickwickian syndrome | | Recent admission to [facility] for 100lb | | weight gain- DC on diuresis on 03/06/2016- she feel improvedShe | | was on Metolazone and Torsemide prior to hospitalization- both | | have better bioavailability than lasix in gut edema but she | | retained 100lbs - how ever she is currently on only Torsemide | | 100mg Q12hrs started in [place] and her weight been stable | | sinceShyesenia has no other complaints.She is pending to see | | NephrologistEcho 02/16/2016([facility])- Normal LV systolic | | [...] + + + | Overview: Problem List College Archivist Utility | + + + + + [...] + + + | Overview: Overview: [facility] Assessment & Plan: Patient with | [...] responded well to diuresis at | | [facility] (lost 60lb, down to 410), and then reaccumulated water | | weight on Torsemide and metolazone, which should be less effected | | by gut wall edema than Lasix. She has an appt with nephrology at | | [facility] on 03/17. Weight now 200kg (440lb, [...] Defer Metolazone to her | | outpatient [facility] or [facility] [facility]- Will continue KCL | | supplementation at 60meq QID despite the spironolactone as she | | remains on the low side- Encourage daily weights at home with a | | log; she should contact her PCP, [facility] or [facility] for | | a 10lb weight gain [...] morbid obesity, she is enrolled in the [facility] bariatric program. | | She [...] tolerating well in the | | hospital-- MANITO arranging for BiPAP upon d/[facility] home to [facility] | | areaOverview: Cannot tolerate [...] RICHEY | | | | | | [facility] [place] [address] | | | | | | [phone] | | | | | | | [...] | [employer] | MOD[employer] | [id number] | 10/28/19 | [phone] | | [employer] | | MEDICAID HMO | HEALTH | | 19-Pre | 1 | | id | | | MDCD | | sent | | | | | | [place] | | | | | | + +--------+ +--------+ +---------+--------+ | [employer] | MODA | [id number] | | [phone] | | Medica | | MEDICAID HMO [...] [place] | | | 3 (Home) | [address] | + +--------+ +--------+ + + | Elzbieta Cristina | Person | Self | [birth year] | [address] | | | al/Fam | | 1974 | [phone] | [place], [place] | | | mireya | | | 3 (Home) | [address] | + +--------+ +--------+ + + Advance Directives + + + + + | Type | Date Recorded | Patient | Explanation | | | | Ell Tutor | | + + + + + | Power of | | | | | Slag Dumper | | | | + + + + + | Advance | | | | | Directive | | | | + + + + +
--- OUTSIDE RECORDS SUMMARY | ~2019-12-19 | XMS | Encounter Summary ---
Demographics + + + | Address | [address] | | | [place] [address] | + + + | Home Phone [...] [place], [place] | | | | | [address] | | + + + + + | Ellie Vang | ECON | Unknown | | + + + + + Care Team Providers + +------+ + | Care Obstetrician/Gynecologist Name | Role | Phone | + [...] | | 2014 | | [facility]ive at [facility] | MD [address] | | | | | [address] | [place], [place] | | | | | Mailcode: [facility] | [address] | | | | | [facility] | [phone] | | | | | and [place] | | | | | | [address] | | | | | | [facility] [place] | | | | | | [address] | | | | | | [phone] | | | +--------+ + + + [...] Flannery | | | | | | [place], [place] | | | | | | [address] | | | | | | [phone] | | | | | | | | +--------+---------+ + + + documented as of this encounter Visit Diagnoses Not on filedocumented in this encounter"
--- OUTSIDE RECORDS SUMMARY | ~2019-12-19 | XMS | Encounter Summary ---
Demographics + + + | Address | [address] | | | [place] [address] | + + + | Home Phone [...] [place], [place] | | | | | [address] | | + + + + + | Ellie Vang | ECON | Unknown | | + + + + + Care Team Providers + +------+ + | Care Stock And Station Agent Name | Role | Phone | [...] | | | | | | [place], [place] | | | | | | [address] | | | | | | [phone] | | | +--------+ + + + [...] Flannery | | | | | | [place], [place] | | | | | | [address] | | | | | | [phone] | | | | | | | | +--------+---------+ + + + documented as of this encounter Visit Diagnoses Not on filedocumented in this encounter"
--- OUTSIDE RECORDS SUMMARY | ~2019-12-19 | XMS | Encounter Summary ---
Demographics + + + | Address | [address] | | | [place] [address] | + + + | Home Phone [...] [place], [place] | | | | | [address] | | + + + + + | Ellie Vang | ECON | Unknown | | + + + + + Care Team Providers + +------+ + | Care Soda Flaker Name | Role | Phone | + [...] | | | Unspecified | Kathy Feliciano MANAGER PRESENTATION | MD [place]ell | | | | | essential | [address] [address] | [address] | | | | | hypertension | [address], | Ave | | | | | Type II or | [address] | [place], [place] | | | | | unspecified | [place], [place] | [address] | | | | | type | [address] | Phone: | | | | | diabetes | Phone: | [phone] | | | | | mellitus | [phone] | Fax: | | | | | without | Fax: | [phone] | | | | | mention of | [phone] | | | | | | complication [...] | 2015 | Visit | Preventive at [facility] | MD [address] | mellitus (HCC) | | | | [address] | [place], [place] | (Primary Dx) | | | | Mailcode: [facility] | [address] | | | | | [facility] | [phone] | | | | | and Healing, | | | | | | [address] | | | | | | [place], [place] | | | | | | [address] | | | | | | [phone] | | | +--------+---------+ + + + [...] Flannery | | | | | | [place], [place] | | | | | | [address] | | | | | | [phone] | | | | | | | [...] | [address] | [place] [address] | | | SERVICES, [facility] | [address] | | | + + + + + HEMOGLOBIN A1C, BLOOD (08/28/2014 11:11 AM PST) + + + + + + | Component | Value | Ref Range | Performed | Pathologist | | | | | At | Signature | + + + + + + | HEMOGLOBIN | 5.3Comment: Hbg A1c | <5.7 % | [facility] | | | A1C | [...] | + + + + + | [employer] | [address] | [place] [address] | | | SERVICES, SPECIAL | [place] [...]
--- OUTSIDE RECORDS SUMMARY | ~2019-12-19 | XMS | Encounter Summary ---
Demographics + + + | Address | [address] | | | [place] [address] | + + + | Home Phone [...] [place], [place] | | | | | [address] | | + + + + + | Ellie Vang | ECON | Unknown | | + + + + + Care Team Providers + +------+ + | Care Apprentice Funeral Director Name | Role | Phone | [...] | | 2018 | | Center at [facility] [address] | [facility] [address] | | | | | [address] | [place], [place] | | | | | Mailcode: Center | [address] | | | | | for Health and | [phone] | | | | | [place] [address] | | | | | | [place], [place] | | | | | | [address] | | | | | | [phone] | | | +--------+ + + + [...] [place] | | | | | | [address] | | | | | | [phone] | | | | | | | | +--------+---------+ + + + documented as of this encounter Visit Diagnoses Not on filedocumented in this encounter"
--- OUTSIDE RECORDS SUMMARY | ~2019-12-19 | XMS | Encounter Summary ---
Demographics + + + | Address | [address] | | | [place] [address] | + + + | Home Phone [...] | [facility] [...] Team Providers + +------+ + | Care Rabbit Breeder Name | Role | Phone | + [...] Closed | | Radiology | Diagnoses | [place], | [facility] | | | | | Deep vein | Dharmesh | Intra Op [address] | | | | | thrombosis | MD Natan | [address] | | | | | (DVT) of | [address] | [place], [place] | | | | | left lower | [address] | [address] | | | | | extremity, | Roshan E | Phone: | | | | | unspecified | [place], [place] | [phone] | | | | | chronicity, | [address] | Fax: | | | | | unspecified | Phone: | [phone] | | | | | vein (HCC) | [phone] | | | | | | Procedures | Fax: | | | | | | IR Removal | [phone] | | | | | | Fibrin [...] + + | 06/14/ | Telephone | [facility] | Dharmesh Fierro, | Procedure | | 2019 | | INTERVENTIONAL | RN | | | | | RADIOLOGY [address] | | | | | | [address] | | | | | | [place], [place] | | | | | | [address] | | | | | | [phone] | | | +--------+ + + + [...] RICHEY | | | | | | [place] [address] | | | | | | [phone] | | | | | | | [...]
--- OUTSIDE RECORDS SUMMARY | ~2019-12-19 | XMS | Encounter Summary ---
Demographics + + + | Address | [address] | | | [place] [address] | + + + | Home Phone [...] + | Katalina Padilla | ECON | [address] | | | | | [place], [place] | | | | | [address] | | + + + + + | Ellie Vang | ECON | Unknown | | + + + + + Care Team Providers + +------+ + | Care Rn Home Care Name | Role | Phone | + [...] | | | | | | [place], [place] | | | | | | [address] | | | | | | [phone] | | | +--------+ + + + [...] Flannery | | | | | | [facility] [place] | | | | | | [address] | | | | | | [phone] | | | | | | | | +--------+---------+ + + + documented as of this encounter Visit Diagnoses Not on filedocumented in this encounter"
--- OUTSIDE RECORDS SUMMARY | ~2019-12-19 | XMS | Encounter Summary ---
Demographics + + + | Address | [address] | | | [place] [address] | + + + | Home Phone [...] [place], [place] | | | | | [address] | | + + + + + | Ellie Vang | ECON | Unknown | | + + + + + Care Team Providers + +------+ + | Care Tar Chaser Name | Role | Phone | [...] + + | 05/13/ | Emergency | [facility] Emergency | [place] | | | 2019 - | | Department [address] | | | | | [address] | [address] | | | 05/14/ | [facility] | [place], [place] | | | 2019 | | [place], [place] | [address] | | | | | [address] | [phone] | | | | | [phone] | | | +--------+ + + + [...] might be different fr om the original. [facility] Discharge Summary Green Surgery Admit Date: 05/13/2019 Discharge Date: 05/14/19 PCP: Kenyatta Hylton MD Attending Physician: Johana Hololway MD Discharging Provider: Anisa Christopher MD PhD [...] by mouth once daily at bedtime. CALCIUM [id number] ORAL Take 2 tablets by mouth two [...] passing gas, please go directly [facility] the [facility] department to [...] the prescribed narcotic-opioid (e.g. oxycodone, hydrocodone, Vicodin, Cramerton, Percoce t, Dilaudid) as needed. Opioid pain medications may cause constipation, so be sure to take a stool softener if you take an opioid pain medication. FOLLOW-UP: Follow-up with your primary care provider for pain control. Dr. Tiwari's clinic scheduler will contact you to try to find a date for surgery. Follow Up: Future Appointments Provider Department Dept Phone Center 06/27/2019 11:55 AM [facility] PHONE/RN CLIN 3 [facility] at [place] [address] [phone] [facility] 06/30/2019 11:30 AM Aly Fr[facility] Cardiology in [facility] Schedule the following appointment(s) when you get home JONES TIWARI MD. Specialty: General Surgery Why: Dr. Tiwari's clinic scheduler will call you to schedule a surgery date. Contact information [address] [place] [address] [place] [address] Kenyatta Hylton MD. Specialty: Family [...] oriented. Grossly intact. Anisa Christopher MD PhD [facility] General Surgery ATTENDING PHYSICIAN STATEMENT I saw the patient and have repeated the pertinent portions of the history and physical exam . I agree with the findings, assessment and plan as documented by the resident. Johana Holloway MD Division of Gastrointestinal and General Surgery [facility] [address] [place] [address] Office: [phone] documented in this e ncounter Discharge Instructions [...] surgery date up as possible and the clinic scheduler will contact you. Elec tronically signed [...] passing gas, please go directly to [facility]gency department to [...] the prescribed narcotic-opioid (e.g. oxycodone, hydrocodone, Vicodin, Cram[place], Percoce t, Dilaudid) as needed. Opioid pain medications may cause constipation, so be sure to take a stool softener if you take an opioid pain medication. FOLLOW-UP: Follow-up with your primary care provider for pain control. Dr. Tiwari's clinic scheduler will contact you to try to [...] | | 0 | | | | [id number] | mouth two times | | | [...] [place] | | | | | | [address] | | | | | | [phone] | | | | | | | [...] [facility] | [address] | [place], [place] | | | VESTAL POINT OF CARE | [address] | [address] | | | TESTS | | | [...] [facility] | [address] | [place] [address] | | | SERVICES, CORE | CLARENCE [...] MDRD equation recommended by the National | [facility] | | Kidney Disease Education Program. [...] [facility] | [address] | [place] [address] | | | SERVICES, [facility] | [address] | | | + [...] abdomen and pelvis WITH intravenous contrast. | [facility] | | HISTORY: Concern for incarcerated hernia [...] [facility] | [address] | [place] [address] | | | SERVICES, CORE | PARK [...] 5-6 weeks | | | 850 - 64128 6-7 weeks | | | 4000 - 208536 7-12 weeks | | | 30926 - 255027 12-16 weeks | | | 01099 - 206462 16-29 | | | weeks 1400 - 30707 | | | 29-41 weeks 940 - 62068 | | | This test has not been approved for use as a tumor marker in | | | males or females. | | + + + + + + + + | Performing | Address | City/State/Zipcode | Phone Number | | Organization | | | | + + + + + | [facility] | [address] | [place] [address] | | | SERVICES, CORE | PARK [...] | [facility] | [address] | [place] [address] | | | SERVICES, CORE | PARK [...] | [facility] | [address] | [place] [address] | | | LYDIA RANGEL | [address] | | | + + + + + ED INFORMATION EXCHANGE (05/13/2019 5:14 PM PDT) + + | Specimen | + + | | + + + + + | Narrative | Performed At | + + + | [facility]?NOTIFICATION?05/13/2019 17:13?DYLAN ROMERO?MRN: | [facility] | | [id number] Criteria Met Has Guidelines PDMP Security | MEDICAL | | and Safety No recent Security Events currently on file ED Care | [employer] | | [facility] Last Updated: 12/06/18 9:53 AM | | | Care Coordination: Receiving mental health services with | | | [employer].? Please contact [employer] for mental health concerns.? | | | Sarah/Toni Centeno: [phone]? Lafe: [phone].? | | | These are guidelines and the provider should exercise clinical | | | judgment when providing care. Care History Medical/Surgical | | | 05/11/19 12:00 AM [facility] Patient is | | | currently established with [facility]. If patient is seen in | | | the ED during business hours. Please contact CHWs at [facility] | | | [facility]. Care Recommendation: This patient has [...] 08/23/18 12:00 AM | | | [facility] PATIENT HAS A PCP APT TO ESTABLISH | | | CARE ON 10/04/18 @ 10:00AM WITH DR HYLTON. Prescription | | | Drug Report (12 Mo.) Rx Details Fill Date Drug Description Qty. | | | Prescriber CS MED 2019-05-12 FENTANYL 12 MCG/HR PATCH 5 BETZY | | | JAVIER BALDWIN 2 0 2019-04-18 ALPRAZOLAM 1 MG TABLET 60 WINSTON SPAS 4 | | | 0 2019-04-13 BELBUCA 600 MCG FILM 57 HIPOLITO FERRERC 0 | | | 2019-04-12 BELBUCA 600 MCG FILM 3 BETZY BALDWIN PA-C 0 | | | 2019-04-09 SUDOGEST 30 MG TABLET 5 BERNARDO VERONICA, HOSIERY OPERATOR 0 | | | 2019-03-30 SUDOGEST 30 MG TABLET 30 BERNARDO MARTIN, HOSIERY OPERATOR 0 | | | 2019-03-20 ALPRAZOLAM [...] (12 mo.) Facility Visits | | | [facility] 1 [facility] 1 | | | [facility] 2 Total 4 Note: Visits indicate total | | | known visits. Recent Emergency Department Visit Summary Date | | | Facility City State Type Diagnoses or Chief Complaint May 13, 2019 | | | [facility] [place] Emergency | | | 10,800. A303 [facility] [place] [place] | | | Emergency Nausea with vomiting, unspecified Solitary | | | pulmonary nodule Anxiety disorder, unspecified Ventral | | | hernia without obstruction or gangrene Unspecified abdominal | | | pain Diarrhea, unspecified Allergy status to oth | | | drug/meds/biol subst status Prsnl hx of TIA (TIA), and cereb | | | infrc w/o resid deficits Other terminal superintendent (current) drug therapy | | | Allergy status to penicillin December 03, 2018 [facility] | | | [facility] [place]. [place] Emergency RIGHT LEG PAIN DUE TO FALL | | | Strain of unsp musc/tend at lower leg level, right leg, init Jul | | | 2018 [facility]. [place] Emergency Other residential | | | (current) drug therapy Upper [...] Team Provider Specialty Phone Fax Service Dates Treva | | | Rob Network Technician/Operator Automated Process Mar 27, 2018 - | | | Current Bernard Hylton MD Internal Medicine: Pulmonary Disease | | | Aug 23, 2018 - Current [employer] This patient has | | | registered at the [facility] Emergency | | | Department For more information visit: | | | [email or web address] | | | [email or web address] PLEASE NOTE: 1. Any care recommendations [...] the limitations of applicable | | | [facility] Policies. 3. You should consult directly with the | | | organization that provided a care guideline or other clinical | | | history with any questions about additional information or accuracy | | | or completeness of information provided. ? 2019 [employer] | | | [employer]. - [email or web address] | | + + + + + | Procedure Note | + + | Service Account, Rtf Results Inbound - 05/13/2019 5:16 PM PDT Formatting of this | | note might be different from the original.COLLECTIVE?NOTIFICATION?05/13/2019 | | 17:13?DYLAN ROMERO? [facility] Has Guidelines PDMPSecurity and | | SafetyNo recent Security Events currently on fileED Care Guidelines from [employer] - | | Irma Updated: 12/06/18 9:53 AM Care Coordination:Receiving mental health | | services with [employer].? Please contact [employer] for mental health concerns.? | | [facility]: [phone]? Lafe: [phone].?These are guidelines | | and the provider should exercise clinical judgment when providing care.Care | | HistoryMedical/Mbjctbwn85/16/19 12:00 AM [facility] Patient is currently | | established with [facility]. If patient is seen in the ED during business hours. | | Please contact CHWs at [facility].Care Recommendation:This patient has had 5 [...] judgment when providing care.08/23/18 12:00 AM [facility] | | Hospital PATIENT HAS [...] SUDOGEST 30 MG TABLET 5 BERNARDO MARTIN, HOSIERY OPERATOR 0 2019-03-30 SUDOGEST 30 MG TABLET 30 | | BERNARDO MARTIN, HOSIERY OPERATOR 0 2019-03-20 ALPRAZOLAM 1 MG TABLET [...] 450 MCG FILM | | 56 BETZY HIPOLITO BALDWINC 0 2018-11-24 BELBUCA 300 MCG FILM 16 [...] [facility] [place] | | Health 1 [facility] 1 [facility] 2 Total 4 Note: | | Visits indicate total known visits. Recent Emergency Department Visit SummaryDate | | Facility City State Type Diagnoses or Chief Complaint May 13, 2019 [facility] | | [facility] [place] Emergency 10,800. A303 May 10, 2019 [facility] | | [place] Emergency Nausea with vomiting, unspecified Solitary pulmonary nodule | | Anxiety disorder, unspecified Ventral hernia without obstruction or gangrene | | Unspecified abdominal pain Diarrhea, unspecified Allergy status to oth | | drug/meds/biol subst status Prsnl hx of TIA (TIA), and cereb infrc w/o resid deficits | | Other terminal superintendent (current) drug therapy Allergy status to penicillin December 03, 2018 | | [facility] [place] Emergency RIGHT LEG PAIN DUE TO FALL Strain of | | unsp musc/tend at lower leg level, right leg, init Aug 22, 2018 [facility] | | [place] Emergency Other residential (current) drug therapy Upper abdominal pain, | | unspecified Bariatric surgery status Allergy status to oth drug/meds/biol subst | | status Noninfective gastroenteritis and colitis, unspecified Obesity, unspecified | | Anxiety disorder, unspecified director long term care (current) use of aspirin Allergy status | | to penicillin Personal history of pulmonary embolism Recent Inpatient Visit | | SummaryNo recorded inpatient visits. Care TeamProvider Specialty Phone Fax Service Dates | | Rob Tilley Network Technician/Operator Automated Process Mar 27, 2018 - Current | | Bernard Hylton MD Internal Medicine: Pulmonary Disease Aug 23, 2018 - Current | | [facility] Eddi patient has registered at the [facility] | | Emergency Department For more information visit: | | [email or web address] PLEASE | | NOTE: 1. Any care [...] to the | | limitations of applicable [facility] Policies. 3. You should consult directly with | | the organization that provided a care guideline or other clinical history with any | | questions about additional information or accuracy or completeness of information | | provided.? 2019 [employer]. - [email or web address] | |[facility] 3 | |Benzos 4 | |Opioids 7 | |Long Acting Opioids 0 | | | | | | | |E.D. Visit Count (12 mo.) | |Facility Visits | |[facility] 1 | |[facility] 1 | |[facility] 2 | |Total 4 | |Note: Visits indicate total known visits. | | | |Recent Emergency Department Visit Summary | |Date Facility City State Type Diagnoses or Chief Complaint | |May 13, 2019 [facility] [place] Emergency | | 10,800. A303 | | | |May 10, 2019 [facility] [place] Emergency | | Nausea with vomiting, unspecified | | Solitary pulmonary nodule | | Anxiety disorder, unspecified | | Ventral hernia without obstruction or gangrene | | Unspecified abdominal pain | | Diarrhea, unspecified | | Allergy status to oth drug/meds/biol subst status | | Prsnl hx of TIA (TIA), and cereb infrc w/o resid deficits | | Other terminal superintendent (current) drug therapy | | Allergy status to penicillin | | | |December 03, 2018 [facility]. [place] Emergency | | RIGHT LEG PAIN DUE TO FALL | | Strain of unsp musc/tend at lower leg level, right leg, init | | | |Aug 22, [address] [facility] [place]. [place] Emergency | | Other terminal superintendent (current) drug therapy | | Upper abdominal [...] Phone Fax Service Dates | |Rob Tilley Network Technician/Operator Automated Process Mar 27, 2018 - Current | |Bernard Hylton MD Internal Medicine: Pulmonary Disease Aug 23, 2018 - Current | | | |[facility] Portal | |This patient has registered at the [facility] [place] Emergency Departmen t | |For more information visit: [email or web address] | |PLEASE NOTE: | | 1. Any [...] information provided. | | | |? 2019 [employer]. - [email or web address] | + + + + + + + | Performing | Address | City/State/Zipcode | Phone Number | | Organization | | | | + + + + + | [facility] | [address] | [place], [place] | [phone] | | TECH[employer]OLOGIES | [address] | [address] | | + + + + + [...] AM PDT | | | | | 10/19/19 at 0900, Until | | | | [...] | | | 0126, Until 05/14/19 at 2150, | | | | | | | [...] | | | | ONCE, 1 dose, [facility] 05/13/19 at | | PM [...] | | | ONCE, 1 dose, Arnold 05/13/19 at | | PM PDT | [...] | | | | ONCE, 1 dose, Jorge 05/14/19 at | | PM PDT | [...]
--- OUTSIDE RECORDS SUMMARY | ~2019-12-19 | XMS | Encounter Summary ---
Demographics + + + | Address | [address] | | | [place] [address] | + + + | Home Phone [...] [place], [place] | | | | | [address] | | + + + + + | Ellie Vang | ECON | Unknown | | + + + + + Care Team Providers + +------+ + | Care Sterilization Tech Name | Role | Phone | [...] | | Alma Delia Mailcode: CH4S | [facility] | | | | | [facility] | [place], [place] | | | | | and Healing, | [address] | | | | | [place] [address] [facility] | [phone] | | | | | Floor [place], [place] | | | | | | [address] | | | | | | [phone] | | | +--------+ + + + [...] | | 2019 | Visit | | [address] | | | | | | [place], [place] | | | | | | [address] | | | | | | [phone] | | | | | | | | +--------+---------+ + + + documented as of this encounter Visit Diagnoses Not on filedocumented in this encounter"
--- OUTSIDE RECORDS SUMMARY | ~2019-12-19 | XMS | Encounter Summary ---
Demographics + + + | Address | [address] | | | [place] [address] | + + + | Home Phone [...] + | Katalina Padilla | ECON | [address] | | | | | [place], [place] | | | | | [address] | | + + + + + | Ellie Vang | ECON | Unknown | | + + + + + Care Team Providers + +------+ + | Care Protective Signal Repairer Helper Name | Role | Phone [...] | | | | | | [place], [place] | | | | | | [address] | | | | | | [phone] | | | +--------+ + + + [...] [address] | | | | | | [place], [place] | | | | | | [address] | | | | | | [phone] | | | | | | | | +--------+---------+ + + + documented as of this encounter Visit Diagnoses Not on filedocumented in this encounter"
--- OUTSIDE RECORDS SUMMARY | ~2019-12-19 | XMS | Encounter Summary ---
Demographics + + + | Address | [address] | | | [place] [address] | + + + | Home Phone [...] [place], [place] | | | | | [address] | | + + + + + | Ellie Vang | ECON | Unknown | | + + + + + Care Team Providers + +------+ + | Care Pumper Head Name | Role | Phone | [...] [id number] | | | | | | [facility] | | | | | | [place], [place] | | | | | | [address] | | | | | | [phone] | | | +--------+ + + + [...] [address] | | | | | | [place], [place] | | | | | | [address] | | | | | | [phone] | | | | | | | | +--------+---------+ + + + documented as of this encounter Visit Diagnoses Not on filedocumented in this encounter"
--- OUTSIDE RECORDS SUMMARY | ~2019-12-19 | XMS | Encounter Summary ---
Demographics + + + | Address | [address] | | | [place] [address] | + + + | Home Phone [...] [place], [place] | | | | | [address] | | + + + + + | Ellie Vang | ECON | Unknown | | + + + + + Care Team Providers + +------+ + | Care Filenet Developer Name | Role | Phone | [...] | | 2013 | | Center at [facility] [address] | [address]N WORK[address] | | | | | [address] | [facility] [address] | | | | | Mailcode: Center | [place], [place] | | | | | for Health and | [address] | | | | | [facility] 2 | [phone] | | | | | [place], [place] | | | | | | [address] | | | | | | [phone] | | | +--------+ + + + [...] [address] | | | | | | [place], [place] | | | | | | [address] | | | | | | [phone] | | | | | | | | +--------+---------+ + + + documented as of this encounter Visit Diagnoses Not on filedocumented in this encounter"
--- OUTSIDE RECORDS SUMMARY | ~2019-12-19 | XMS | Encounter Summary ---
Demographics + + + | Address | [address] | | | [place] [address] | + + + | Home Phone [...] [place], [place] | | | | | [address] | | + + + + + | Ellie Vang | ECON | Unknown | | + + + + + Care Team Providers + +------+ + | Care Bundle Wrapper Name | Role | Phone | + [...] + + | 03/01/ | Hospital | [facility] [address] | Ion Castanon, | | | 2018 - | Encounter | [address] | [address] | | | | | [place], [place] | [place], [place] | | | 03/03/ | | [address] | [address] | | | 2017 | | [phone] | [phone] | | | | | | | [...] Gavin ACNP - 03/03/2018 9:49 AM PDT [facility] RED SURGERY INPATIENT DISCHARGE SUMMARY Author: [...] full liquid diets. [facility] dietitian was consulted and they discussed [...] at minimum. 5. Follow with PCP for Leather Toggler within 1 - 2 weeks of discharge [...] mg by mouth two times daily. CALCIUM CRB&DLR-D8-UAP38-GENIS ORAL Take 2 tablets by mouth two [...] or Kefir, [place] Yogurt, and Chioban i Tajik Yogurt are common brands with beneficial probiotics. [...] are available over the counter at most [facility] [employer] stores. Nausea/Vomiting/Difficulty Swallowing Nausea/Vomiting/Difficulty swallowing: Could be [...] hours per your instructions. Some medications, like Preston, have Tylenol in it. Make sure you [...] hours by calling the surgery office at [phone]. - After hours, weekends and holidays, you may call the hospital strong nitric operator at [phone] an d have the special education math teacher Red Surgery Team paged. OTHER DISCHARGE ORDERS [...] at minimum. 5. Follow with PCP for Leather Toggler within 1 - 2 weeks of discharge [...] Dept Phone Center 03/10/2018 1:30 PM [facility] 6th Floor [phone] FO OD AND NUT 03/10/2018 3:05 PM [facility] Emergency Department Digestive [facility] 6th Floor [phone] [facility] 04/01/2018 10:30 AM [facility] 6th Floor [phone] FO OD AND NUT 04/01/2018 11:00 AM Ion Castanon [facility] 6th Floor [phone] [facility] 05/27/2018 2:30 PM [facility] Digestive [facility] 6th Floor [phone] FO OD AND NUT 05/27/2018 3:05 PM [facility] Emergency Department Digestive [facility] 6th Floor [phone] [facility] 05/27/2018 4:30 PM [facility] 15th Floor [phone] Comprehensiv 06/04/2018 10:35 AM [facility] Cardiology Preventive [facility] [phone] Cardiology Discharging Physician: KAIN Agee Attending Physician: Ion Castanon MD [facility] Pager# [phone] 9:50 AM 03/03/2018 documented in this enco [...] | | 0 | | | | CRB&VSM-X8-UHV37-GEN | mouth two times | | | [...] of discharge 03/03/18 PARTHA Calixto MS3 [facility] [employer] Demarcus Menon MD - [...] for care ride home (pt lives in [place]) Demarcus Alas M.D. General Surgery Resident PGY-1 Pager: [phone] Ion Ferrari MD - 10:00 AM PDTI [...] | | | | | [place], [place] | | | | | | [address] | | | | | | [phone] | | | | | | | [...] [facility]) | results section. | + [...] [facility]) | results section. | + [...] [facility]) | results section. | + [...] [facility]) | results section. | + [...] [facility]) | results section. | + [...] [facility]) | results section. | + [...] [facility]) | results section. | + [...] [facility]) | results section. | + [...] [facility]) | results section. | + [...] [facility]) | results section. | + [...] [facility]) | results section. | + [...] [facility]) | results section. | + [...] [facility]) | results section. | + [...] [facility]) | results section. | + [...] [facility]) | results section. | + [...] [facility]) | results section. | + [...] [facility]) | results section. | + [...] [facility]) | results section. | + [...] [facility]) | results section. | + [...] [facility]) | results section. | + [...] [facility]) | results section. | + [...] [facility]) | results section. | + [...] [facility]) | results section. | + [...] [facility]) | results section. | + [...] [facility]) | results section. | + [...] [facility]) | results section. | + [...] [facility]) | results section. | + +--------+ + + + | LAPAROSCOPIC | Electi | 03/01/2018 | Morbid obesity | | | NISH-EN-Y GASTRIC | ve | 8:31 AM | ([facility]) | | | BYPASS | [...] AMES | [address] | [place], [place] | | | [place] POINT OF CARE | [facility] | [address] | | | TESTS | | | [...] MARQUAM | [address] | [place], [place] | | | JUSTINE DAWN OF CARE | [address] | [address] | | | TESTS | | | [...] - KWAKU | [address] | [place], [place] | | | JUSTINE DAWN OF CARE | [facility] | [address] | | | TESTS | | | [...] | 70 - 99 mg/dL | [facility] AMES | [address] | [place], [place] | | | JUSTINE DAWN OF CARE | [facility] | [address] | | | TESTS | | | [...] AMES | [address] | [place], [place] | | | JUSTINE DAWN OF JAKY | [address] | [address] | | | TESTS | | | [...] KWAKU | [address] | [place], [place] | | | JUSTINE DAWN OF JAKY | [facility] | [address] | | | TESTS | | | [...] | 70 - 99 mg/dL | [facility] AMES | [address] | [place], [place] | | | [place] POINT OF CARE | [address] | [address] | | | TESTS | | | [...] KWAKU | [address] | [place], [place] | | | JUSTINE DAWN OF JAKY | [address] | [address] | | | TESTS | | | [...] KWAKU | [address] | [place], [place] | | | JUSTINE DAWN OF JAKY | [facility] | [address] | | | TESTS | | | [...] | 70 - 99 mg/dL | [facility] [...] + | NKECHI AMES | [address] | [place], [place] | | | [place] POINT OF CARE | [address] | [address] | | | TESTS | | | [...] KWAKU | [address] | [place], [place] | | | JUSTINE DAWN OF CARE | [address] | [address] | | | TESTS | | | [...] KWAKU | [address] | [place], [place] | | | JUSTINE DAWN OF JAKY | [facility] | [address] | | | TESTS | | | [...] YAKOVAM | [address] | [place], [place] | | | L[place] POINT OF CARE | [address] | [address] | | | TESTS | | | [...] + | Performing | Address | City/State/[facility] | Phone Number | | Organization | | | | + + + + + | NKECHI - KWAKU | [address] | [place], [place] | | | JUSTINE DAWN OF CARE | [facility] | [address] | | | TESTS | | | [...] KWAKU | [address] | [place], [place] | | | JUSTINE DAWN OF JAKY | [facility] | [address] | | | TESTS | | | | + + + + + CAPILLARY BLOOD GLUCOSE (NO CHG), POC (03/02/2018 4:36 AM PDT) + +-------+ + + + | Component | Value | Ref Range | Performed | Pathologist | | | | | At | Signature | + +-------+ + + + | BLOOD | 97 | 70 - 99 mg/dL | [facility] MARQUAM | [address] | [place], [place] | | | JUSTINE DAWN OF [facility] | [address] | [address] | | | TESTS | | | [...] AMES | [address] | [place], [place] | | | JUSTINE DAWN OF CARE | [facility] | [address] | | | TESTS | | | [...] MARPATAM | [address] | [place], [place] | | | JUSTINE DAWN OF CARE | [facility] | [address] | | | TESTS | | | [...] | 70 - 99 mg/dL | [facility] [...] MARQUAM | [address] | [place], [place] | | | [place] POINT OF CARE | [address] | [address] | | | TESTS | | | [...] AMES | [address] | [place], [place] | | | JUSTINE DAWN OF JAKY | [facility] | [address] | | | TESTS | | | [...] KWAKU | [address] | [place], [place] | | | JUSTINE DAWN OF JAKY | [facility] | [address] | | | TESTS | | | [...] | 70 - 99 mg/dL | [facility] [...] YAKOVAM | [address] | [place], [place] | | | [place] POINT OF CARE | [address] | [address] | | | TESTS | | | [...] KWAKU | [address] | [place], [place] | | | JUSTINE DAWN OF CARE | [facility] | [address] | | | TESTS | | | [...] KWAKU | [address] | [place], [place] | | | JUSTINE DAWN OF JAKY | [facility] | [address] | | | TESTS | | | [...] | 70 - 99 mg/dL | [facility] [...] KWAKU | [address] | [place], [place] | | | [place] POINT OF CARE | [address] | [address] | | | TESTS | | | [...] + | Performing | Address | City/State/[facility] | Phone Number | | Organization | | | | + + + + + | NKECHI - [facility] | [address] | [place], [place] | | | JUSTINE DAWN OF JAKY | [facility] | [address] | | | TESTS | | | | + + + + + EGD (ESOPHAGOGASTRODUODENOSCOPY) (03/01/2018 11:21 AM PDT) + + + | Narrative | Performed At | + + + | Ion Castanon MD 03/01/2018 12:25 PM Date of Procedure: | | | 03/01/18 Primary Surgeon: Ion Castanon MD Co Surgeon or | | | metal forger's assistant: Eldon Gonzalez MD, Chief Resident Alexx [...] The jejunum was divided with 60 mm [place] stapler with white | | | load [...] created in each limb and a 60mm [place] stapler | | | with white load was fired to create a snce-rg-aoov | | | jejunojejunostomy. The anastamosis was confirmed to be widely | | | patent and hemostatic. The common enterotomy was closed by placing | | | 2 stay sutures along the enterotomy for retraction and firing an | | | [place] 60mm stapler with white load across the [...] | | | was entered. The 60mm [place] stapler with blue load was placed | [...] blue load of the 60mm stapler. The [place] was then fired | | | longitudinally towards the angle of His to create the gastric pouch, | | | leaving the gastrotomy from foreign body removal, on the pouch. | | | Dissection was performed retrogastric to connect posterior and | | | anterior dissection planes and ensure adequate fundus exclusion. | | | Additional fires of the [place] stapler were performed with blue | | [...] with | | | 5 mm clip drier operator helper. A 25mm Orvil was passed transorally [...] | nish limb was identified with the aolndra drain. The jejunal | | | staple [...] was closed with 60mm | | | [place] stapler with a white load. Medially and [...] was present | | | as my metal forger's assistant for the entire procedure, given the technically | | | challenging nature of this procedure. She assisted in all critical | | | steps of the procedure. Dr. Gonzalez was present for endoscopy at the | | | end of the procedure. Ion Castanon MD, FACS, [facility] | | | Bariatric Surgery | | [...] MD Co Surgeon or | | | metal forger's assistant: Eldon Gonzalez MD, Chief Resident Alexx [...] The jejunum was divided with 60 mm [place] stapler with white | | | load [...] created in each limb and a 60mm [place] stapler | | | with white load was fired to create a meel-ba-gbpn | | | jejunojejunostomy. The anastamosis was confirmed to be widely | | | patent and hemostatic. The common enterotomy was closed by placing | | | 2 stay sutures along the enterotomy for retraction and firing an | | | [place] 60mm stapler with white load across the [...] | | | was entered. The 60mm [place] stapler with blue load was placed | [...] blue load of the 60mm stapler. The [place] was then fired | | | longitudinally towards the angle of His to create the gastric pouch, | | | leaving the gastrotomy from foreign body removal, on the pouch. | | | Dissection was performed retrogastric to connect posterior and | | | anterior dissection planes and ensure adequate fundus exclusion. | | | Additional fires of the [place] stapler were performed with blue | | [...] with | | | 5 mm clip drier operator helper. A 25mm Orvil was passed transorally [...] was closed with 60mm | | | [place] stapler with a white load. Medially and [...] was present | | | as my metal forger's assistant for the entire procedure, given the technically | | | challenging nature of this procedure. She assisted in all critical | | | steps of the procedure. Dr. Gonzalez was present for endoscopy at the | | | end of the procedure. Ion Castanon MD, FACS, [facility] | | | Bariatric Surgery | | [...] MARQUAM | [address] | [place], [place] | | | JUSTINE DAWN OF JAKY | [address] | [address] | | | TESTS | | | [...] of 70 and over, adult ([facility]) - Primary | + + | Diabetes mellitus type 2 without retinopathy ([facility]) Type II or unspecified type [...]
--- OUTSIDE RECORDS SUMMARY | ~2019-12-19 | XMS | Encounter Summary ---
Demographics + + + | Address | [address] | | | [place] [address] | + + + | Home Phone [...] [place], [place] | | | | | [address] | | + + + + + | Ellie Vang | ECON | Unknown | | + + + + + Care Team Providers + +------+ + | Care Ekg/Ecg Technician Name | Role | Phone | [...] | | Center at [facility] [address] | [facility] [place] | | | | | [address] | [address] | | | | | Mailcode: Center | [phone] | | | | | for Health and | | | | | | [facility] 2 | | | | | | [facility] [place] | | | | | | [address] | | | | | | [phone] | | | +--------+ + + + [...] [address] | | | | | | [place], [place] | | | | | | [address] | | | | | | [phone] | | | | | | | | +--------+---------+ + + + documented as of this encounter Visit Diagnoses Not on filedocumented in this encounter"
--- OUTSIDE RECORDS SUMMARY | ~2019-12-19 | XMS | Encounter Summary ---
Demographics + + + | Address | [address] | | | [place] [address] | + + + | Home Phone [...] [place], [place] | | | | | [address] | | + + + + + | Ellie Vang | ECON | Unknown | | + + + + + Care Team Providers + +------+ + | Care Program Management Intern Name | Role | Phone | [...] | | 2 diabetes | JEAN, | [place], [place] | | | | | mellitus | [place] [address] | [address] | | | | | without | Phone: | Phone: | | | | | complication | [phone] | [phone] | | | | | (HCC) | Fax: | Fax: | | | | | Procedures | [phone] | [phone] | | | | | [place] EST | | | | | | [...] | Visit | Preventive at [facility] | MD [address] | mellitus without | | | | [address] | [place], [place] | complication, with | | | | Mailcode: CH9A | [id number] | long-term current | | | | [facility] | [phone] | use of insulin (HCC) | | | | and Healing, | | (Primary Dx); | | | | [address] | | Morbid obesity with | | | | [place], [place] | | BMI of 70 and over, | | | | [address] | | adult (HCC) | | | | [phone] | | | +--------+---------+ + + + [...] 3 Hypoventilation associated with obesity ([facility]) 06/16/2013 Priority: 4 AMARA (obstructive sleep apnea) 04/14/2013 Priority: 4 Overview Note: Cannot tolerate CPAP Severe Morbid obesity ([facility]), BMI 88 11/12/2012 Priority: 4 Overview Note: Lifetime max: 495 lbs Phentermine started Type 2 diabetes mellitus ([facility]) 04/14/2013 Priority: 5 Iron deficiency anemia due to chronic blood loss 11/11/2015 Priority: 6 Overview Note: Ferritin 18 on 10/2015 Hypoalbuminemia (no proteinuria, need to rule out synthetic, nutrition, loss) 6 Priority: 6 Hypothyroidism 08/28/2014 Priority: 8 Morbid obesity with BMI of 70 and over, adult ([facility]) 02/02/2017 Chronic diastolic heart failure (HCC) 02/02/2017 Immobility 02/02/2017 Severe muscle deconditioning 02/02/2017 Personal history of DVT (deep vein thrombosis) 02/02/2017 History of pulmonary embolism 02/02/2017 AMARA treated with BiPAP 02/02/2017 Benign essential HTN 02/02/2017 Diabetes mellitus type 2 without retinopathy ([facility]) 02/02/2017 Hyperlipidemia 02/02/2017 Ventral hernia without [...] exertion) 11/06/2015 Diabetes mellitus with insulin therapy ([facility]) 12/27/2014 Abdominal pain 02/07/2014 Migraine headache [...] 1 tablet by mouth once daily CALCIUM CRB&AIR-U8-CEL41-GENIS ORAL Take 2 tablets by mouth two [...] jeart failure is manag ed by her tandem mill operator and she was seen by the bariatric surgery group and is now back [facility] for [facility] in the upcoming year. [...] is currently being managed well by her Capacity Planner with diuretics and main tenance of her [...] management of her heart failure by her Capacity Planner 3) Check A1c, lipids 4) Await bariatric [...] | | | | | | [place], [place] | | | | | | [address] | | | | | | [phone] | | | | | | | [...] + + + + + | [facility] | [address] | [place], [place] | | | SERVICES, LIPID | [address] | [address] | | + + + + + [...] | [facility] | | considered for monitoring custodial glycemic control in patients with: | LABORATORY [...] + + + | [facility] | [address] | [place] [address] | | | SERVICES, SPECIAL | CLARENCE [...]
--- OUTSIDE RECORDS SUMMARY | ~2019-12-19 | XMS | Encounter Summary ---
Demographics + + + | Address | [address] | | | [place] [address] | + + + | Home Phone [...] + | Organization | [facility] | | | [...] Providers + +------+ + | Care Diesel Engine Fitter Name | Role | Phone | + +------+ + PCP | Unavailable | + +------+ + Encounter Details +--------+ + + + + | Date | Type | Department | Care Team | Description | +--------+ + + + + | 10/07/ | Orders Only | [facility] | Dharmesh Escobar, | | | 2017 | | NEPHROLOGY [place] | DIRECTOR OF RESIDENTIAL SERVICES [address] | | | | [address] | [address] | | | | | [address] [place], [place] | [place] | | | | | [address] | [address] | | | | | [phone] | [phone] | | | | | | | [...] F | | | | | | [place] [address] | | | | | | [phone] | | | | | | | [...] | | | LAB | | | [facility] | | | | | + +---------+ [...]
--- OUTSIDE RECORDS SUMMARY | ~2019-12-19 | XMS | Encounter Summary ---
Demographics + + + | Address | [address] | | | [place] [address] | + + + | Home Phone [...] [place], [place] | | | | | [address] | | + + + + + | Ellie Vang | ECON | Unknown | | + + + + + Care Team Providers + +------+ + | Care Motor Overhauler Name | Role | Phone | [...] 2012 | | Center at [facility] [address] | MD [address] | | | | | [address] | [facility] | | | | | Mailcode: Center | [place], [place] | | | | | for Health and | [address] | | | | | [facility], [facility] 2 | [phone] | | | | | [place], [place] | | | | | | [address] | | | | | | [phone] | | | +--------+ + + + [...] [place] | | | | | | [address] | | | | | | [phone] | | | | | | | | +--------+---------+ + + + documented as of this encounter Visit Diagnoses Not on filedocumented in this encounter"
--- OUTSIDE RECORDS SUMMARY | ~2019-12-19 | XMS | Encounter Summary ---
Demographics + + + | Address | [address] | | | [place] [address] | + + + | Home Phone [...] [place], [place] | | | | | [address] | | + + + + + | Ellie Vang | ECON | Unknown | | + + + + + Care Team Providers + +------+ + | Care Medical Office Administrator Name | Role | Phone | [...] | | | | | | [facility] [place], | | | | | | [place] [address] | | | | | | [phone] | | | +--------+ + + + [...] Flannery | | | | | | [place], [place] | | | | | | [address] | | | | | | [phone] | | | | | | | | +--------+---------+ + + + documented as of this encounter Visit Diagnoses Not on filedocumented in this encounter"
--- OUTSIDE RECORDS SUMMARY | ~2019-12-19 | XMS | Encounter Summary ---
Demographics + + + | Address | [address] | | | [place] [address] | + + + | Home Phone [...] [place], [place] | | | | | [address] | | + + + + + | Ellie Vang | ECON | Unknown | | + + + + + Care Team Providers + +------+ + | Care Dance Costume Designer Name | Role | Phone | [...] 2016 | | Preventive at [facility] | MD [address] | | | | | [address] | [place], [place] | | | | | Mailcode: CH9A | [address] | | | | | [facility] | [phone] | | | | | and Healing, | | | | | | Building [address] | | | | | | [facility] [place] | | | | | | [address] | | | | | | [phone] | | | +--------+ + + + [...] Flannery | | | | | | [place], [place] | | | | | | [address] | | | | | | [phone] | | | | | | | | +--------+---------+ + + + documented as of this encounter Visit Diagnoses Not on filedocumented in this encounter"
--- OUTSIDE RECORDS SUMMARY | ~2019-12-19 | XMS | Encounter Summary ---
Demographics + + + | Address | [address] | | | [place] [address] | + + + | Home Phone [...] + | Katalina Padilla | ECON | [address] | | | | | [place], [place] | | | | | [address] | | + + + + + | Ellie Vang | ECON | Unknown | | + + + + + Care Team Providers + +------+ + | Care Cotton Header Name | Role | Phone | [...] Mailcode:OP14B | | | | | | [facility] | | | | | | [place], [place] | | | | | | [address] | | | | | | [phone] | | | +--------+ + + + [...] Flannery | | | | | | [place], [place] | | | | | | [address] | | | | | | [phone] | | | | | | | [...] | | | | | | | 08-11-45[facility] | | | | | | INTERNAL [...] in | | | | | | [place]. | | | | | | | | | | | | Julia Blackman at [facility]. | | | | | | | [...] | | | | artery. A 4.1 [place]ran | | | | | | catheter was navigated | | | | | | over0.035" Donal coated | | | | | | Bentson guide wire into | | | | [...] | | + +---------+ + + | [facility] DEPARTMENT OF | | | | | RADIOLOGY | | | | + +---------+ + + documented in this encounter Visit Diagnoses Not on filedocumented in this encounter
--- OUTSIDE RECORDS SUMMARY | ~2019-12-19 | XMS | Encounter Summary ---
Demographics + + + | Address | [address] | | | [place] [address] | + + + | Home Phone [...] [place], [place] | | | | | [address] | | + + + + + | Ellie Vang | ECON | Unknown | | + + + + + Care Team Providers + +------+ + | Care Double End Trimmer Name | Role | Phone | [...] evaluation | | 2020 | cheduled | [facility] | | | | | | [facility] | | | | | | [address] | | | | | | Mail Code: OC8PM | | | | | | [facility] | | | | | | and Healing, | | | | | | Building [address] | | | | | | [place], [place] | | | | | | [address] | | | | | | [phone] | | | +--------+ + + + [...] | | | , POLINA; Endotracheal | CHEST PAINTING AND SEALING SUPERVISOR | CHEST PAINTING AND SEALING SUPERVISOR | | | Tube; 7.5; Oral; [...] PM PST PREOPERATIVE INSTRUCTIONS Surgery check-in location: [facility] Surgery Check in Time: you will receive a call 1-3 business days before your surgery confi rming your exact arrival/check-in time for your surgery day. We know that planning for surg eileen can be stressful and involve a lot of family/friend/transportation coordination as well as hotel arrangements. The [facility] does not have access to check in [facility], and we encourage you to contact [...] ACID (VITAMIN C) 500 MG TABLET CALCIUM CRB&UCI-B7-ZNC02-GENIS ORAL CYANOCOBALAMIN (VIT B-12) 1,000 MCG TABLET [...] ch as Uber/Lyft), or public transportation. An Uber/Lyft/equipment driver does not count as the responsible [...] you and look [facility] after you have undergone regional blocks [...] it is after office hours, call the [facility] helper shear operator at [phone] and ask them to page him or h er. documented in this encounter Plan of Treatment +--------+---------+ + + + | Date | Type | Specialty | Care Team | Description | +--------+---------+ + + + | 03/15/ | Office | Cardiology | Randell Franks, | | | 2019 | Visit | | MD [address] | | | | | | [place] | | | | | | [address] | | | | | | [phone] | | | | | | | | +--------+---------+ + + + documented as of this encounter Visit Diagnoses Not on filedocumented in this encounter
--- OUTSIDE RECORDS SUMMARY | ~2019-12-19 | XMS | Encounter Summary ---
Demographics + + + | Address | [address] | | | [place] [address] | + + + | Home Phone | | + + + | Preferred Language | Unknown | + + + | Marital Status | | + + + | Sabianism Affiliation | Unknown | + + + | Race | Unknown | + + + | Ethnic Group | Unknown | + + + Author + + + | Author | [facility] | | | and Jeffana | + + + | Organization | [facility] | | | and [...] Team Providers + +------+ + | Care Drill Sharpener Operator Name | Role | Phone | [...] | Services | Disease | Chronic | [facility], | [facility] | | | Required | | diastolic | SWIMMING PROFESSOR [address] | SLEEP | | | | | heart | PAYAL GASTON | DISORDERS LAB | | | | | failure | DMITRI F | [address] | | | | | (HCC) | [place], [place] | [address] | | | | | History of | [address] | [place], [place] | | | | | sinus | Phone: | [address] | | | | | tachycardia | [phone] | Phone: | | | | | History of | Fax: | [phone] | | | | | bariatric | [phone] | Fax: | | | | | surgery | | [phone] | | | | | Sleep apnea [...] + + | 04/28/ | Office | [facility] | Sulema Altamirano | Chronic diastolic | | 2019 | Visit | CARDIOLOGY [place] | [address] | heart failure (HCC) | | | | [address] | [address] | (Primary Dx); | | | | [address] | [place] [address] | History of sinus | | | | [place], [place] | [phone] | tachycardia; History | | | | [address] | | of stroke; HTN, | | | | [phone] | | goal below 130/80; | | [...] have referred you to Dr. Rascon at [facility] , call [phone] for an appointment next week I made [...] dysfunction with previous dysfunctional RV treated at [facility] with diuresis and hospitalization for one month., sleep apnea treated with BiPAP, t ype II diabetes, hypothyroidism, morbid obesity with alveolar hypoventilation, Frandy-en-Y ga stric bypass surgery 02/2018, osteoarthritis,DVT and PE 2016, hypokalemia and hyperuricemia which is being followed by big data lead Dr. Fu, and SELINA Escobar. Her current [...] will be seeing a surgeon a barron [facility] on May 05. In the meantime she has had difficulty with dehydration and keeping f ood down, and she receives IV fluids through PICC line 3 times per week and has also been tr eated with Phenergan. Unfortunately her PCP, Dr. Cardenas is still on maternity leave, and she has been seen by [facility] providers who are covering for her. She reports today that she never heard from the [place] [facility] providers to her sup posed [...] surgery, and weight down 123 pounds since [facility] 2017 when weighed 394 lbs. [...] hypothyroidism,followed by Dr. Franks, endocrin ologist at [facility]) . Denies excessive thirst or hunger. [...] knee pain and hernia pain Lives in [place] her mother who smokes. . Sister is long term care social worker. Grandchildren ages 4 and 7 live with he r daughter and son-in-law. Disabled , on disability .01/24/2019: working with [employer] to get her own place. Outpatient Medications [...] film Suboxone 2 mg-0.5 mg sublingual film Yeaxhjr-Pqibzwxyv-Tklkodx D (CITRACAL CALCIUM+D PO) Take 2 tablets [...] Pen Needle (NOVOFINE) 32G X 6 MM [facility] Novofine 32 32 gauge x 1/4" needle [...] monohydrate/macrocrystals 100 m g capsule nystatin (NYSTATIN) 543909 UNIT/GM powder Nyamyc 100,000 unit/gram topical powder [...] Take 30 mg by mouth Daily. thyroid (MARKETING ADMINISTRATOR THYROID) 30 mg tablet MARKETING ADMINISTRATOR Thyroid 30 mg tablet TAKE ONE TABLET [...] Left lower extremity DVT, presumed PE: 10/2015 [facility]. treated with heparin drip and Coumadin 10 in hospital, with Coumadin 6 months as outpatient, ASA 81 mg continued Venous US: right leg, 04/28/2016: No evidence of DVT. EKG EKG 10/27: ([facility]) Normal sinus rhythm. Normal EKG. Rate 93 bpm, NH 172 ms, QRS 90 ms, QTC 465 ms personally reviewed by me in the office today) EK02/05: Sinus tachycardia, otherwise normal. Rate 160 bpm, NH 174 ms, QRS 74 ms, QTC 451 ms (personally reviewed by me in the office today and no significant change seen fro m EKG done in October 2016 except for faster heart rate) EK04/26/2018: Normal sinus rhythm, rate 74 bpm, NH 182 ms, QRS 96 ms, QTC 472 ms, tracin g personally reviewed by me, and compared to previous EKG, heart rate is now better controll ed, otherwise similar morphology EK04/28/2019: Normal sinus rhythm, right axis. Rate 74 bpm, NH 170 ms, QRS 88 ms, QTC 45 [...] GFR 92, albumin 3.3. Magnesium: 1.8 Labs: 10/12/2018:([facility]) CMP: Glucose 103, BUN 9, creatinine 0.7, [...] heard from the sleep providers at the [place] [facility] in [place], so I have referred her again to Dr. Rascon at the [facility], and she ne eds [...] Placed This Encounter Procedures Ambulatory Referral to [facility] Pulmonology- Sleep study as well ECG [...] past surgical history. Problem list. Maryse MARKS [facility] Cardiology 04/28/2019 docume nted in this [...] | | | | | | [place] [address] | | | | | | [phone] | | | | | | | | +--------+---------+ + + + + + +--------+ + + | Name | Type | Priori | Associated Diagnoses | Order Schedule | | | | ty | | | + + +--------+ + + | Ambulatory Referral | Outpatient | Routin | Chronic diastolic | Ordered: 04/28/2019 | | to [facility] | Referral | e | heart [...] | | | | | by [facility] [place] Read Only, | | | | | | [employer] ([id number]), | | | | | | editor & co founder Glen Alberto | | | | | | [phone]) on 04/28/2019 | | | | | [...]
--- OUTSIDE RECORDS SUMMARY | ~2019-12-19 | XMS | Encounter Summary ---
Demographics + + + | Address | [address] | | | [place] [address] | + + + | Home Phone [...] Organization | [facility] | | | and [...] Providers + +------+ + | Care Applications Engineer Name | Role | Phone [...] + + | 06/27/ | Telephone | [facility] | Dharmesh Fierro, | Follow-up(Procedure) | | 2019 | | INTERVENTIONAL | RN | | | | | RADIOLOGY [address] | | | | | | [address] | | | | | | [facility] [place] | | | | | | [address] | | | | | | [phone] | | | +--------+ + + + [...] [place] | | | | | | [place] [address] | | | | | | [phone] | | | | | | | | +--------+---------+ + + + documented as of this encounter Visit Diagnoses Not on filedocumented in this encounter"
--- OUTSIDE RECORDS SUMMARY | ~2019-12-19 | XMS | Encounter Summary ---
Demographics + + + | Address | [address] | | | [place] [address] | + + + | Home Phone [...] + | Katalina Padilla | ECON | [address] | | | | | [place], [place] | | | | | [address] | | + + + + + | Ellie Vang | ECON | Unknown | | + + + + + Care Team Providers + +------+ + | Care Grocery Supervisor Name | Role | Phone | [...] 2014 | | [address] | [address] | REPAIR | | | | [facility] | [address] | | | | | Hospital Admitting | [place], [place] | | | | | Des Located on the | [address] | | | | | 9th floor | [phone] | | | | | [place], [place] | | | | | | [address] | | | +--------+---------+ + + + [...] mouth once daily. , Historical Med CALCIUM CRB&QPI-U2-III48-GENIS ORAL Take 1 tablet by mouth two [...] 10:40 AM Randell Franks Cardiology Preventive at [facility] [phone] Cardiology 04/09/2015 1:00 PM Egs Ppv Tra Trauma Emergency General Surgery at [facility] [phone] [facility] Outstanding labs/studies: None Discharging Physician: GABO LANGSTON MD Attending Physician: Dr. Cantu PCP: Fadi Goodrich DO Signed: GABO LANGSTON MD Pager #[phone] Surgical Chain Saw Driver [facility] Associated attestation - Tye Carrillo DO - 03/12/2015 9:12 AM PDTAttending: I discussed this patient with the resident and agree with the assessment and plan as outlin ed in this note and participated in the planning of care. Tye Carrillo DO, SIDRA, FACS Division of Trauma, Critical Care & Acute Care Surgery [facility] [phone] documented in this encounter Medications at Time of Discharge + + + +---------+--------+ + | Medication | Sig | Dispensed | Refills | Start | End Date | | | | | | Date | | + + + +---------+--------+ + | CALCIUM | Take 2 tablets by | | 0 | | | | CRB&BXC-H8-LWX79-GEN | mouth two times | | | [...] differ ent from the original. [facility] [place] DEPARTMENT OF SURGERY EMERGENCY GENERAL SURGERY Division [...] Plan: D/c today GABO LANGSTON MD Pager #[phone] Surgical Chain Saw Driver [facility] Salomón William Md - 03/02/2015 1:12 PM PDT [facility] DEPARTMENT OF SURGERY EMERGENCY GENERAL [...] will be robel ing her home to [place], [place]. CALVIN ROMERO MD PGY-1 Anesthesiology Pager: [phone] [facility] [place] [facility] [address] [facility] [address] Karthik Oneill MD - 03/02/2015 8:26 AM [id number] Calvin William Md - 03/01/2015 5:34 PM [...] control CALVIN ROMERO MD PGY-1 Anesthesiology Pager: [phone] signed by Calvin Romero Md at 03/01/2015 5:41 PM PDTdocumente d in this encounter Plan of Treatment +--------+---------+ + + + | Date | Type | Specialty | Care Team | Description | +--------+---------+ + + + | 03/15/ | Office | Cardiology | Randell Franks, | | | 2019 | Visit | | [address] | | | | | | [place], [place] | | | | | | [address] | | | | | | [phone] | | | | | | | [...] | | Attending Surgeon: Shahid Cantu MD Upper Leather Sorter(s): Howie Angeles MD, R5 | | Karthik [...] 03/02/2015 08:25:39DT: 03/02/2015 09:15:57Job #: | | [id number] | | | |Dr. Chris Cantu was present and scrubbed for the entirety of the case. | | | | | | | |Karthik Gonzalez MD | | | |Pursuant to federal Medicare and Medicaid regulations I was present for the entire procedur e. | | | | | | | |Shahid Cantu MD | |Relations Coordinator | |Trauma, Critical Care & Acute Care Surgery | | | | | | | |Shahid Cantu MD | |TBK/MODL | | | | | | /[id number] | + ---+ CAPILLARY BLOOD GLUCOSE (NO [...] AMES | [address] | [place], [place] | | | JUSTINE DAWN OF JAKY | [address] | [address] | | | TESTS | | | [...] MARQUAM | [address] | [place], [place] | | | JUSTINE DAWN OF CARE | [address] | [address] | | | TESTS | | | [...] - MARQUAM | [address] | [place], [place] | | | JUSTINE DAWN OF CARE | [address] | [address] | | | TESTS | | | [...] AMES | [address] | [place], [place] | | | JUSTINE DAWN OF JAKY | [address] | [address] | | | TESTS | | | [...] MARQUAM | [address] | [place], [place] | | | JUSTINE DAWN OF CARE | [address] | [address] | | | TESTS | | | [...] - KWAKU | [address] | [place], [place] | | | LÓPEZ POINT OF CARE | [address] | [address] | | | TESTS | | | [...] [facility] | [address] | [place] [address] | | | SERVICES, CORE | CLARENCE [...] + + + + + | [facility] | [address] [facility] | [place] [address] | | | CLAIRE, LYDIA | CLARENCE [...] MARQUAM | [address] | [place], [place] | | | HILL, POINT OF CARE | [address] | [address] | | | TESTS | | | [...] MARQUAM | [address] | [place], [place] | | | JUSTINE DAWN OF JAKY | [facility] | [address] | | | TESTS | | | [...] AMES | [address] | [place], [place] | | | LÓPEZ POINT OF CARE | [address] | [address] | | | TESTS | | | [...] MARQUAM | [address] | [place], [place] | | | JUSTINE DAWN OF CARE | [facility] | [address] | | | TESTS | | | [...] MARPATAM | [address] | [place], [place] | | | JUSTINE DAWN OF [facility] | [address] | [address] | | | TESTS | | | [...] HOSPITAL LABORATORY | [address] | [place] [address] | | | LYDIA RANGEL | CLARENCE [...] [place] | | | JUSTINE DAWN OF [facility] | [address] | [address] | | | TESTS | | | [...] | | | | | PRN, Starting [facility] 03/01/15 at 1143, | | | | | | | Until [facility] 03/01/15 at 1207 | | | | | | + +--------+ +-------+------+ + +---+---+ | | | +---+---+ documented in this encounter
--- OUTSIDE RECORDS SUMMARY | ~2019-12-19 | XMS | Encounter Summary ---
[...] [place], [place] | | | | | [address] | | + + + + + | Ellie Vang | ECON | Unknown | | + + + + + Care Team Providers + +------+ + | Care Credit Representative Name | Role | Phone | [...] | at [facility] [address] | PROCESSING TECH [address] | [facility] | | | | Ave Mailcode: CH7C | [place], [place] | | | | | [facility] | [address] | | | | | and [address], | [phone] | | | | | [facility] | | | | | | Floor [place], [place] | | | | | | [address] | | | | | | [phone] | | | +--------+ + + + [...] | | 2019 | Visit | | [address] | | | | | | [place], [place] | | | | | | [address] | | | | | | [phone] | | | | | | | | +--------+---------+ + + + documented as of this encounter Visit Diagnoses Not on filedocumented in this encounter"
--- OUTSIDE RECORDS SUMMARY | ~2019-12-19 | XMS | Encounter Summary ---
Demographics + + + | Address | [address] | | | [place] [address] | + + + | Home Phone [...] [place], [place] | | | | | [address] | | + + + + + | Ellie Vang | ECON | Unknown | | + + + + + Care Team Providers + +------+ + | Care Internet Programmer Name | Role | Phone | [...] | | | [facility] | | | | | | [place], [place] | | | | | | [address] | | | | | | [phone] | | | +--------+ + + + [...] [address] | | | | | | [place], [place] | | | | | | [address] | | | | | | [phone] | | | | | | | [...] | | | | navigated a #5.5 Icelandic | | | | | | [...] + + | Performing | Address | City/State[facility] | Phone Number | | Organization | [...] | | | | | | a#5.5 Icelandic sheath was | | | | | | secured into place. In | | | | | | a similar fashion, | | | | | | a#7.0 Icelandic sheath was | | | | | [...] | | | | | The #7 Icelandic Brite | | | | | | [...]
--- OUTSIDE RECORDS SUMMARY | ~2019-12-19 | XMS | Encounter Summary ---
Demographics + + + | Address | [address] | | | [place] [address] | + + + | Home Phone [...] [place], [place] | | | | | [address] | | + + + + + | Ellie Vang | ECON | Unknown | | + + + + + Care Team Providers + +------+ + | Care Target Network Analyst Name | Role | Phone | [...] | | [address] | [facility] [place] | | | | | Mailcode: CH9A | [address] | | | | | [facility] | [phone] | | | | | and Healing, | | | | | | [address] | | | | | | [facility] [place] | | | | | | [address] | | | | | | [phone] | | | +--------+ + + + [...] | | 2019 | Visit | | [address] | | | | | | [place], [place] | | | | | | [address] | | | | | | [phone] | | | | | | | | +--------+---------+ + + + documented as of this encounter Visit Diagnoses Not on filedocumented in this encounter"
--- OUTSIDE RECORDS SUMMARY | ~2019-12-19 | XMS | Encounter Summary ---
Demographics + + + | Address | [address] | | | [place] [address] | + + + | Home Phone [...] [place], [place] | | | | | [address] | | + + + + + | Ellie Vang | ECON | Unknown | | + + + + + Care Team Providers + +------+ + | Care Canvas Cutter Hand Name | Role | Phone | + +------+ + | Fadi Goodrich DO | PCP | | + +------+ + Encounter Details +--------+ + + + + | Date | Type | Department | Care Team | Description | +--------+ + + + + | 02/13/ | Telephone | Cardiology | Randell Franks, | | | 2016 | | Preventive at [facility] | MD [address] | | | | | [address] | [facility] [place] | | | | | Mailcode: [facility] | [address] | | | | | [facility] | [phone] | | | | | and Healing, | | | | | | [address] | | | | | | [facility] [place] | | | | | | [address] | | | | | | [phone] | | | +--------+ + + + [...] | | 2019 | Visit | | [address] | | | | | | [place], [place] | | | | | | [address] | | | | | | [phone] | | | | | | | | +--------+---------+ + + + documented as of this encounter Visit Diagnoses Not on filedocumented in this encounter"
--- OUTSIDE RECORDS SUMMARY | ~2019-12-19 | XMS | Encounter Summary ---
Demographics + + + | Address | [address] | | | [place] [address] | + + + | Home Phone [...] [place], [place] | | | | | [address] | | + + + + + | Ellie Vang | ECON | Unknown | | + + + + + Care Team Providers + +------+ + | Care Cellars Supervisor Name | Role | Phone | + +------+ + | Fadi Goodrich DO | PCP | | + +------+ + Encounter Details +--------+ + + + + | Date | Type | Department | Care Team | Description | +--------+ + + + + | 06/09/ | Abstract | Digestive Health | Kathy Feldman, | | | 2012 | | Center at [facility] [address] | INTERPRETIVE PROGRAM COORDINATOR [address] | | | | | [address] | [facility] [address] | | | | | Mailcode: Center | [place], [place] | | | | | [facility] and | [address] | | | | | [facility] 2 | [phone] | | | | | [place], [place] | | | | | | [address] | | | | | | [phone] | | | +--------+ + + + [...] [address] | | | | | | [place], [place] | | | | | | [address] | | | | | | [phone] | | | | | | | | +--------+---------+ + + + documented as of this encounter Visit Diagnoses Not on filedocumented in this encounter"
--- OUTSIDE RECORDS SUMMARY | ~2019-12-19 | XMS | Encounter Summary ---
Demographics + + + | Address | [address] | | | [place] [address] | + + + | Home Phone [...] [place], [place] | | | | | [address] | | + + + + + [...] | | [address] | [address] [place], [place] | | | | | Mailcode: [place] | [address] | | | | | for Health and | [phone] | | | | | [facility] 2 | | | | | | [facility] [place] | | | | | | [address] | | | | | | | [...] | | 2019 | Visit | | [address] | | | | | | [place], [place] | | | | | | [address] | | | | | | [phone] | | | | | | | | +--------+---------+ + + + documented as of this encounter Visit Diagnoses Not on filedocumented in this encounter"
--- OUTSIDE RECORDS SUMMARY | ~2019-12-19 | XMS | Encounter Summary ---
[...] [place], [place] | | | | | [address] | | + + + + + | Ellie Vang | ECON | Unknown | | + + + + + Care Team Providers + +------+ + | Care Molecular Pathologist Name | Role | Phone | [...] | | 2015 | | Preventive at [facility] | [address] | | | | | [address] | [place], [place] | | | | | Mailcode: [facility] | [address] | | | | | [facility] | [phone] | | | | | and [address], | | | | | | [address] | | | | | | [place], [place] | | | | | | [address] | | | | | | [phone] | | | +--------+ + + + [...] [place] | | | | | | [address] | | | | | | [phone] | | | | | | | | +--------+---------+ + + + documented as of this encounter Visit Diagnoses Not on filedocumented in this encounter"
--- OUTSIDE RECORDS SUMMARY | ~2019-12-19 | XMS | Encounter Summary ---
Demographics + + + | Address | [address] | | | [place] [address] | + + + | Home Phone [...] [place], [place] | | | | | [address] | | + + + + + | Ellie Vang | ECON | Unknown | | + + + + + Care Team Providers + +------+ + | Care Consumer Safety Officer Name | Role | Phone | [...] Hospital | | | | | | [place], [place] | | | | | | [address] | | | | | | [phone] | | | +--------+ + + + [...] [address] | | | | | | [place], [place] | | | | | | [address] | | | | | | [phone] | | | | | | | [...] | | | | | | | 08-[birth year]-[address] | | | | | | INTERNAL [...] in | | | | | | [place]. | | | | | | | | | | | | Julia Blackman at [facility]. | | | | | [...] | | | | artery. A 4.1 Irish | | | | | | catheter [...]
--- OUTSIDE RECORDS SUMMARY | ~2019-12-19 | XMS | Encounter Summary ---
Demographics + + + | Address | [address] | | | [place] [address] | + + + | Home Phone [...] Organization | [facility] | | [...] Team Providers + +------+ + | Care Zipper Setter Chainstitch Name | Role | Phone | + [...] + + | 06/27/ | Telephone | [facility] | Dharmesh Fierro, | Follow-up(Procedure) | | 2019 | | INTERVENTIONAL | RN | | | | | RADIOLOGY [address] | | | | | | [address] | | | | | | [facility] [place] | | | | | | [address] | | | | | | [phone] | | | +--------+ + + + [...] [address] | | | | | | [place] [address] | | | | | | [phone] | | | | | | | | +--------+---------+ + + + documented as of this encounter Visit Diagnoses Not on filedocumented in this encounter"
--- OUTSIDE RECORDS SUMMARY | ~2019-12-19 | XMS | Encounter Summary ---
Demographics + + + | Address | [address] | | | [place] [address] | + + + | Home Phone [...] Organization | [facility] | | | and eJffana | + + + | Address | [...] +------+ + | Care Armor Reconnaissance Vehicle Driver Name | Role | Phone | [...] RIZVI F | | | | | [place], [place] | [place] [address] | | | | | [address] | [phone] | | | | | [phone] | | | +--------+ + + + [...] RICHEY | | | | | | [place] [address] | | | | | | [phone] | | | | | | | [...] VTI: 26.50 cm ADALID Vmax: 2.49 cm2 ADLAID | | | (VTI): 2.39 cm2 AVAI Vmax: 0.00 cm2/m2 AVAI (VTI): 0.00 | | | cm2/m2 LVOT maxP.17 mmHg LVOT meanP.82 mmHg LVSI | | | Dopp: 30.83 ml/m2 LVSV Dopp: 63.52 ml LVOT Vmax: 0.89 m/s | | | LVOT Vmean: 0.65 m/s LVOT VTI: 17.71 cm MV A Jeffrey: 0.61 m/s | | | MV Dec Tucker: 2.43 m/s2 MV DecT: 247.51 ms MV E Jeffrey: 0.60 | | | m/s MV E/A Ratio: 0.98 MV PHT: 71.78 ms MVA By PHT: 3.06 | | | cm2 Septal e': 0.06 m/s Septal E/e': 9.54 Lateral e': 0.10 | | | m/s Lateral E/e': 5.84 RAP: 5 mmHg RV s': 0.11 m/s | | | Travel Pt: JESSICA Authenticated by: Darryl [facility] Report Date/Time: | | | 02-22-2019 [...] cmLVIDd: 4.70 cmLVPWd: 0.79 cmLVOT Area: 3.58 [id number] Diam: 2.13 cm%FS: 39.25 | | %EF(Teich): [...] | Index (A-L): 14.72 ml/m2LAAs A2C: 10.03 [id number] A-L A2C: 22.69 mlLALs A2C: 3.76 | | cmLAAs A4C: 13.41 gn5FGTRO A-L A4C: 36.80 mlLALs A4C: 4.14 cmRAAs: 11.18 | | xg6IHMJI A-L: 22.84 mlRAESV MOD: 22.10 mlRALs: 4.64 cmTAPSE: 2.04 cmAV maxPG: | | 6.55 mmHgAV meanP.52 mmHgAV Vmax: 1.27 m/Genesis Vmean: 0.88 m/Genesis VTI: 26.50 | | cmAVA Vmax: 2.49 cm2AVA (VTI): 2.39 et6MHIQ Vmax: 0.00 cm2/m2AVAI (VTI): 0.00 | | cm2/m2LVOT maxP.17 mmHgLVOT meanP.82 mmHgLVSI Dopp: 30.83 ml/m2LVSV Dopp: | | 63.52 mlLVOT Vmax: 0.89 m/sLVOT Vmean: 0.65 m/sLVOT VTI: 17.71 cmMV A Jeffrey: | | 0.61 m/sMV Dec Tucker: 2.43 m/s2MV DecT: 247.51 msMV E Jeffrey: 0.60 m/sMV E/A Ratio: | | 0.98MV PHT: 71.78 msMVA By PHT: 3.06 ai0Vezovz e': 0.06 m/sSeptal E/e': | | 9.54Lateral e': 0.10 m/sLateral E/e': 5.84RAP: 5 mmHgRV s': 0.11 m/s | | Travel Pt: DHAuthenticated by: Darryl [facility] Date/Time: 02-22-2019 20:8:36 | | IMPRESSION: [...] A Jeffrey: 0.61 m/s | |MV Dec Tucker: 2.43 m/s2 | |MV DecT: 247.51 ms | |MV E Jeffrey: 0.60 m/s | |MV E/A Ratio: 0.98 | |MV PHT: 71.78 ms | |MVA By PHT: 3.06 cm2 | |Septal e': 0.06 m/s | |Septal E/e': 9.54 | |Lateral e': 0.10 m/s | |Lateral E/e': 5.84 | |RAP: 5 mmHg | |RV s': 0.11 m/s | | | |Travel Pt: | |Authenticated by: Darryl Merrill | |Report [...]
--- OUTSIDE RECORDS SUMMARY | ~2019-12-19 | XMS | Encounter Summary ---
Demographics + + + | Address | [address] | | | [place] [address] | + + + | Home Phone [...] [place], [place] | | | | | [address] | | + + + + + | Ellie Vang | ECON | Unknown | | + + + + + Care Team Providers + +------+ + | Care Boat Wrapper Name | Role | Phone | [...] [address] | | | | | [facility] | [facility] | | | | | [address] | [place], [place] | | | | | Mail Code: OC8PM | [address] | | | | | [facility] | [phone] | | | | | and Healing, | | | | | | [address] | | | | | | [place], [place] | | | | | | [address] | | | | | | [phone] | | | +--------+ + + + [...] Flannery | | | | | | [place], [place] | | | | | | [address] | | | | | | [phone] | | | | | | | | +--------+---------+ + + + documented as of this encounter Visit Diagnoses Not on filedocumented in this encounter"
--- OUTSIDE RECORDS SUMMARY | ~2019-12-19 | XMS | Encounter Summary ---
Demographics + + + | Address | [address] | | | [place] [address] | + + + | Home Phone [...] [place], [place] | | | | | [address] | | + + + + + | Ellie Vang | ECON | Unknown | | + + + + + Care Team Providers + +------+ + | Care Asphalt Heater Operator Name | Role | Phone | [...] | | | | | | | [address] | | | | | | [address] | | | | | | | Physicians | | | | | | | Pavilion, 2nd | | | | | | | Floor | | | | | | | [place], [place] | | | | | | | [address] | | | | | | | Phone: | | | | | | | [phone] | | | | | | | Fax: | | | | | | | [phone] | +--------+--------+ + + + + Encounter [...] | | | [facility] [address] [facility] [address] | or gangrene (Primary | | | | [address] | [place], [place] | Dx) | | | | Physicians [place], | [address] | | | | | 2nd Floor | [phone] | | | | | [facility] [place] | | | | | | [address] | | | | | | [phone] | | | +--------+---------+ + + + [...] Rocha MD,MPH - 11/05/2015 2:09 PM PDT [facility] Department of Surgery EGS/TRAUMA Surgery Clinic [...] 500 mg by mouth once daily. CALCIUM CRB&JAG-Z1-TNO43-GENIS ORAL Take 1 tablet by mouth two [...] were answered. Christian Rocha MD MPH FACS [facility] funeral greeter Trauma, Critical Care & Acute Care Surgery Pending Sale To [facility] [phone] documented in thi s encounter Plan of Treatment +--------+---------+ + + + | Date | Type | Specialty | Care Team | Description | +--------+---------+ + + + | 03/15/ | Office | Cardiology | Randell Franks, | | | 2019 | Visit | | [address] | | | | | | [place], [place] | | | | | | [address] | | | | | | [phone] | | | | | | | | +--------+---------+ + + + documented as of this encounter Visit Diagnoses + + | Diagnosis | + + | Ventral hernia without obstruction or gangrene - Primary Ventral hernia, unspecified, | | without mention of obstruction or gangrene | + + documented in this encounter"
--- OUTSIDE RECORDS SUMMARY | ~2019-12-19 | XMS | Encounter Summary ---
Demographics + + + | Address | [address] | | | [place] [address] | + + + | Home Phone [...] [place], [place] | | | | | [address] | | + + + + + | Ellie Vang | ECON | Unknown | | + + + + + Care Team Providers + +------+ + | Care Mash Filter Operator Name | Role | Phone | + +------+ + | Kenyatta Cardenas MD | PCP | | + +------+ + Encounter Details +--------+ + + + + | Date | Type | Department | Care Team | Description | +--------+ + + + + | 03/10/ | Pharmacy | [facility] | | | | 2018 | Visit | & [facility] | | | | | | [address] | | | | | | Mailcode: Center | | | | | | [facility] and | | | | | | [facility] | | | | | | [place], [place] | | | | | | [address] | | | | | | [phone] | | | +--------+ + + + [...] Flannery | | | | | | [place], [place] | | | | | | [address] | | | | | | [phone] | | | | | | | | +--------+---------+ + + + documented as of this encounter Visit Diagnoses Not on filedocumented in this encounter"
--- OUTSIDE RECORDS SUMMARY | ~2019-12-19 | XMS | Encounter Summary ---
Demographics + + + | Address | [address] | | | [place] [address] | + + + | Home Phone [...] | Author | [facility] | | | and Jeffana | + + + | Organization | [facility] | | | and Jeffana [...] Providers + +------+ + | Care Microsoft Exchange Administrator Name | Role | Phone | + +------+ + PCP | Unavailable | + +------+ + Encounter Details +--------+ + + + + | Date | Type | Department | Care Team | Description | +--------+ + + + + | 04/14/ | Orders Only | [facility] | Conversion | | | 2015 | | NEPHROLOGY JESUS | Transaction, | | | | | [address] | Provider Unknown | | | | | [address] [place] [address] | | | | | | [address] | (Fax) | | | | | [phone] | | | +--------+ + + + [...] RICHEY | | | | | | [place] [address] | | | | | | [phone] | | | | | | | [...] - 1.030 | EXTERNAL | | | [place], | | | LAB | | | [...]
--- OUTSIDE RECORDS SUMMARY | ~2019-12-19 | XMS | Encounter Summary ---
Demographics + + + | Address | [address] | | | [place] [address] | + + + | Home Phone [...] [place], [place] | | | | | [address] | | + + + + + | Ellie Vang | ECON | Unknown | | + + + + + Care Team Providers + +------+ + | Care Public Health Program Manager Name | Role | Phone | [...] Center at [facility] [address] | MD [address] [facility] | | | | | [address] | [place] | | | | | Mailcode: [place] | [place], [place] | | | | | [facility] and | [address] | | | | | [facility] | [phone] | | | | | [place], [place] | | | | | | [address] | | | | | | [phone] | | | +--------+ + + + [...] Flannery | | | | | | [place] | | | | | | [address] | | | | | | [phone] | | | | | | | | +--------+---------+ + + + documented as of this encounter Visit Diagnoses Not on filedocumented in this encounter"
--- OUTSIDE RECORDS SUMMARY | ~2019-12-19 | XMS | Encounter Summary ---
Demographics + + + | Address | [address] | | | [place] [address] | + + + | Home Phone [...] [place], [place] | | | | | [address] | | + + + + + | Ellie Vang | ECON | Unknown | | + + + + + Care Team Providers + +------+ + | Care Outsole Beveler Name | Role | Phone | + [...] 2015 | | Preventive at [facility] | MD [address] | | | | | [address] | [place], [place] | | | | | Mailcode: [address]A | [address] | | | | | [facility] | [phone] | | | | | and [place], | | | | | | [address] | | | | | | [place], [place] | | | | | | [address] | | | | | | [phone] | | | +--------+--------+ + + + [...] Flannery | | | | | | [place], [place] | | | | | | [address] | | | | | | [phone] | | | | | | | | +--------+---------+ + + + documented as of this encounter Visit Diagnoses Not on filedocumented in this encounter"
--- OUTSIDE RECORDS SUMMARY | ~2019-12-19 | XMS | Encounter Summary ---
Demographics + + + | Address | [address] | | | [place] [address] | + + + | Home Phone [...] [place], [place] | | | | | [address] | | + + + + + | Ellie Vang | ECON | Unknown | | + + + + + Care Team Providers + +------+ + | Care Data Center Operator Name | Role | Phone | + +------+ + | Fadi Goodrich DO | PCP | | + +------+ + Encounter Details +--------+ + + + + | Date | Type | Department | Care Team | Description | +--------+ + + + + | 02/09/ | Abstract | [facility] | Clinic, Surgery | | | 2016 | | [place] [address] [address] | | | | | | [address] | | | | | | Mailcode: [place] | | | | | | [facility] and | | | | | | [facility] 2 | | | | | | [place], [place] | | | | | | [address] | | | | | | [phone] | | | +--------+ + + + [...] Flann[address] | | | | | | [place], [place] | | | | | | [address] | | | | | | [phone] | | | | | | | | +--------+---------+ + + + documented as of this encounter Visit Diagnoses Not on filedocumented in this encounter"
--- OUTSIDE RECORDS SUMMARY | ~2019-12-19 | XMS | Encounter Summary ---
Demographics + + + | Address | [address] | | | [place] [address] | + + + | Home Phone [...] [facility] | | | and Jeffana | + + + | Organization | [facility] | | | [...] + | 04/14/ | Orders Only | [facility] | Conversion | | | 2015 | | NEPHROLOGY JESUS | Transaction, | | | | | [address] | Provider Unknown | | | | | [address] | | | | | | [address] | (Fax) | | | | | [phone] | | | +--------+ + + + [...] | | | | | | [address] | | | | | | [place] [address] | | | | | | [phone] | | | | | | | [...] - 1.030 | EXTERNAL | | | [facility], | | | LAB | | | [...]
--- OUTSIDE RECORDS SUMMARY | ~2019-12-19 | XMS | Encounter Summary ---
Demographics + + + | Address | [address] | | | [place] [address] | + + + | Home Phone [...] [place], [place] | | | | | [address] | | + + + + + | Ellie Vang | ECON | Unknown | | + + + + + Care Team Providers + +------+ + | Care Tile Ditcher Name | Role | Phone | + +------+ + | Fadi Goodrich DO | PCP | | + +------+ + Encounter Details +--------+------+ + + + | Date | Type | Department | Care Team | Description | +--------+------+ + + + | 11/20/ | Lab | Laboratory at [facility] | | Morbid obesity with | | 2017 | | [address] | | BMI of 70 and over, | | | | [place], [place] | | adult ([facility]); | | | | [address] | | 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 | | | | | 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| | 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 ([facility]) | | + +--------+ + + + | VITAMIN D, | Routin | 11/20/2017 | Morbid obesity | Results for this | | 25-HYDROXY, SERUM | e | 10:01 AM | with BMI of 70 and | procedure are in the | | | | PDT | over, adult ([facility]) | results section. | | | | | 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| | 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 ([facility]) | | + +--------+ + + + | COMPLETE METABOLIC | Routin | 11/20/2017 | Morbid obesity | Results for this | | SET | e | 10:01 AM | with BMI of 70 and | procedure are in the | | (NA,K,CL,CO2,BUN,CRE | | PDT | over, adult ([facility]) | results section. | | AT,GLUC,CA,AST,ALT,B | | | Diabetes mellitus | | | MARGIE TOTAL,ALK | | | type 2 without | | | PHOS,ALB,PROT TOTAL) |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 ([facility]) | | + +--------+ + + + | CBC ONLY | Routin | 11/20/2017 | Morbid obesity | Results for this | | | e | 10:01 AM | with BMI of 70 and | procedure are in the | | | | PDT | over, adult ([facility]) | results section. | | | | | 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| | 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 ([facility]) | | + +--------+ + + + | FERRITIN | Routin | 11/20/2017 | Morbid obesity | Results for this | | | e | 10:01 AM | with BMI of 70 and | procedure are in the | | | | PDT | over, adult ([facility]) | results section. | | | | | 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| | 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 ([facility]) | | + +--------+ + + + | PTH, SERUM | Routin | 11/20/2017 | Morbid obesity | Results for this | | | e | 10:01 AM | with BMI of 70 and | procedure are in the | | | | PDT | over, adult ([facility]) | results section. | | [...] | | | PDT | over, adult ([facility]) | results section. | | [...] | | | | use of insulin ([facility]) | | | | | [...] | + + + + + | [facility] | [address] | [place] [address] | | | SERVICES, [place] [facility] | | | | | HEALTH [...] [facility] | [address] | [place], [place] | | | SERVICES, LIPID | [address] | [address] | | + + + + + [...] [facility] | [address] | [place] [address] | | | SERVICES, SPECIAL | CLARENCE [...] INTERPRETIVE | 70 - 180 nmol/L | [facility] | | | WHOLE | INFORMATION: Vitamin [...] | | | | | determined by [facility] | | | | | | Laboratories. See | | | | | | Compliance Statement B: | | | | | | [employer]/CSPerformed | | | | | | by [employer],[address] | | | | | | [facility] | | | | | | [address] | | | | | | [phone].[facility]. | | | | | | [...] [facility] | [address] | [place], [place] | | | [facility] | | [address] | | + + + + + [...] [facility] | [address] | [place] [address] | | | SERVICES, CORE | CLARENCE [...] | [address] | [place] [address] | | | SERVICES, CORE | PARK [...] [facility] | [address] | [place] [address] | | | SERVICES, CORE | CLARENCE [...] | [address] | [place] [address] | | | SERVICES, CORE | PARK [...] [facility] | [address] | [place] [address] | | | LYDIA RANGEL | CLARENCE [...] | [address] | [place] [address] | | | SERVICES, CORE | CLARENCE [...]
--- OUTSIDE RECORDS SUMMARY | ~2019-12-19 | XMS | Encounter Summary ---
Demographics + + + | Address | [address] | | | [place] [address] | + + + | Home Phone [...] [place], [place] | | | | | [address] | | + + + + + | Ellie Vang | ECON | Unknown | | + + + + + Care Team Providers + +------+ + | Care Fitness Worker Name | Role | Phone | [...] | 2019 | | Center at [place] [address] | MD [address] | Review | | | | [address] | [facility] | | | | | Mailcode: Center | [place], [place] | | | | | [facility] and | [address] | | | | | [place] [address] | [phone] | | | | | [place], [place] | | | | | | [address] | | | | | | [phone] | | | +--------+ + + + [...] Flannery | | | | | | [place] | | | | | | [address] | | | | | | [phone] | | | | | | | | +--------+---------+ + + + documented as of this encounter Visit Diagnoses Not on filedocumented in this encounter"
--- OUTSIDE RECORDS SUMMARY | ~2019-12-19 | XMS | Encounter Summary ---
Demographics + + + | Address | [address] | | | [place] [address] | + + + | Home Phone [...] [place], [place] | | | | | [address] | | + + + + + | Ellie Vang | ECON | Unknown | | + + + + + Care Team Providers + +------+ + | Care Grief Counselor Name | Role | Phone | [...] PRINCE Giles | | | | | [place], [place] | [address] | | | 11/12/ | | [address] | [place], [place] | | | 2012 | | [phone] | [address] | | | | | | [phone] | | | | | | | [...] yuriy tral hernia. She was transferred from [place] for surgical evaluation of possible incarcer ated [...] yuriy tral hernia. She was transferred from [place] for surgical evaluation of possible incarcer ated [...] keeping you from eating and drinking, Call [phone]. It is important to stay hydrated! If [...] taking narcotic that contain Tylenol (acetaminophen) Example: [place], Lortab, Vicodin, hydrocodone/APAP, Percocet, Tylenol #3 PAIN MEDICATIONS are ONLY REFILLED during CLINIC APPOINTMENTS. Please call [phone] to schedule an appointment. Your Follow-Up Plan Follow up with ROBIN MEJIA in 2 weeks. Contact information: [address] [facility] [address] Vitals on discharge: Ht 154.9 cm (5' [...] different f rom the original. [facility] DEPARTMENT OF SURGERY EMERGENCY [...] clinic - [place]. [place] [address] pager number [facility] [phone] [facility] [address] Aminta Goodwin Md - 11/11/2012 7:40 AM PDT [facility] DEPARTMENT OF SURGERY EMERGENCY GENERAL SURGERY Division of Trauma and Critical Care Attending Physician: Andie Brian MD Progress Note Note Date: 11/11/2012 Admission Date: 11/06/2012 DYLAN ROMERO, [id number] Hospital Day #5 INTERVAL EVENTS none acute [...] mg, Rectal, DAILY PRN, Aminta Wilson MD qnrcqawgls-myapmbbdbgolp-djjrhhde (aka FIORICET) 50-325-40 mg 1 Tab, 1 [...] injection 1 mg, 1 mg, Intramuscular, PRN, aDnny Lagos MD glucose chewable tablet 16 g, [...] 30 mg, 30 mg, Oral, HS, Onur Aleln MD, 30 mg at 10/25 02/05 2140 [...] Jayne Ponce MD, 1 mg at 11/10/12801 fwkduwelvi-ybbzvnumtvwsj-mnzygzal (aka FIORICET) 50-325-40 mg 1 Tab, 1 [...] in preservative free NaCl 0.9% 50 mL MAINFRAME ANALYST infusion, , Intravenous, KIESHA NUGRANT, Aracely [...] diet -add bowel regimen Acute pain -HM MAINFRAME ANALYST, tylenol -convert to oral pain medication [...] Fluids: LR 125ml/hr Feeding: NPO Analgesia: Dilaudid MAINFRAME ANALYST Sedation: not indicated Thromboprophylaxis: enoxaparin Head [...] Ponce MD, 1 mg at 11/09/12 0855 tsxrlxgfbe-opppokutpascs-wgrialwi (aka FIORICET) 50-325-40 mg 1 Tab, 1 [...] in preservative free NaCl 0.9% 50 mL MAINFRAME ANALYST infusion, , Intravenous, KIESHA NUOUS, Aracely [...] 94 [phone]* ASSESSMENT AND PLAN: Dylan Rmoero is a 37 y.o. female who is on HD# 3, POD #3 S/P incarcerated ventral herni a repair with primary repair, panniculectomy. Incarcerated hernia, now s/p repair and panniculectomy 19F vanessa above fascia -Binder, pain control, minimize nausea and coughing PRN. -DIAMOND in until drainage <30ml for 24hrs Acute pain -HM MAINFRAME ANALYST, tylenol Diabetes: -insulin gtt not started [...] Fluids: LR 125ml/hr Feeding: NPO Analgesia: Dilaudid MAINFRAME ANALYST Sedation: not indicated Thromboprophylaxis: enoxaparin Head of bed: > 30 Ulcer prophylaxis: pepcid Glycemic control: adequate Activity/PT/OT: Ongoing Yogurt: ABX on Probiotics:yes AMINTA WILSON MD General Surgery, R1 Kaleb Martin N P - 11/08/2012 8:49 AM PDT [facility] DEPARTMENT OF SURGERY EMERGENCY GENERAL SURGERY Division of Trauma and Critical Care Attending Physician: Andie Brian MD Progress Note Note Date: 11/08/2012 Admission Date: 11/06/2012 DYLAN ROMERO, [id number] Hospital Day #2 INTERVAL EVENTS NO SUBJECTIVE Pain well controlled; has headache attributed to dilaudid MAINFRAME ANALYST Tylenol did not help. Flatus: YES [...] trials today. -DC ruiz Acute pain -HM MAINFRAME ANALYST, tylenol Diabetes: -insulin gtt not started [...] Fluids: LR 125ml/hr Feeding: NPO Analgesia: Dilaudid MAINFRAME ANALYST Sedation: not indicated Thromboprophylaxis: enoxaparin Head of bed: > 30 Ulcer prophylaxis: pepcid Glycemic control: adequate Activity/PT/OT: Ongoing Yogurt: ABX on Probiotics: No KALEB WALKER NP [facility] [address] [place] [address] elvin Stephens MD - 11/07/2012 9:51 PM [...] 7.33* PCO2 49* PO2 113* HCO3 25 PRCGF0NTZ 26 S8FRKQPM 98.3* W4ZDMFLBP -- FIO2 60 ABGEXCESS -0.9 Assessment, Medical Decision Making and Plan 1. Incarcerated hernia, now s/p repair and panniculectomy -Binder, pain control, minimize nausea and coughing PRN. -NG clamping trials today. 2. Acute pain -HM MAINFRAME ANALYST, tylenol 3. Diabetes: -insulin gtt 4. [...] Dione Grimes MD R-2, General Surgery Pager: [phone] [facility] [place] Department of Surgery Trauma ICU Team Pager (24hrs/day): [phone] I was present with the resident during the history and exam. I discussed the case with the resident and agree with the findings and plan as documented in the resident s note. KELVIN STEPHENS MD [facility] [address] [facility] [place] [address] [id number] uOnur patton MD - 11/07/2012 2:37 AM [...] in preservative free NaCl 0.9% 50 mL MAINFRAME ANALYST infusion Intravenous CON TINUOUS Aracely Flores, [...] POD#1 s/p primary repair. 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 venetian blind washer and prn tylenol, continue prozac and zyprexa [...] F: probable remain NPO today A: dilaudid venetian blind washer, prn tylenol S: prn benzos as she is at home T: will start prophylactic lovenox today H: HOB >30 degrees U: pepcid G: insulin gtt ONUR ALLEN MD, PGY3 [facility] [address] 5c04/uhs8t [place] [address] Onelia Shrestha MD - 11/06/2012 8:41 AM PDT [facility] DEPARTMENT OF SURGERY Division of Trauma and Critical Care Emergency General Surgery / Acute Care Surgery Attending Physician: Andie Brian MD Note Date: 11/06/2012 Admission Date: 11/06/2012 DYLAN ROMERO, [id number] Hospital Day #0 OVERNIGHT EVENTS: anxious SUBJECTIVE: [...] zenia LABS: reviewed and are available in [employer] (if new data) IMAGING: VASCULAR: IMPRESSION: Dylan [...] Flannery | | | | | | [place], [place] | | | | | | [address] | | | | | | [phone] | | | | | | | [...] Mae | | | | | | [place] | | | | + + + [...] MARQUAM | [address] | [place], [place] | | | JUSTINE DAWN OF CARE | [address] | [address] | | | TESTS | | | [...] AMES | [address] | [place], [place] | | | [place] POINT OF CARE | [address] | [address] | | | TESTS | | | [...] | + + + + + | LO[facility] | [address] | [place] [address] | | | SERVICES, CORE | CLARENCE [...] | | | LABORATORY | | | NAMIBIAN | | | SERVICES, | | | [...] [facility] | [address] | [place] [address] | | | SERVICES, CORE | PARK [...] HOSPITAL LABORATORY | [address] | [place] [address] | | | SERVICES, CORE | CLARENCE [...] + + + | NKECHI AMES | [address] | [place], [place] | | | [place] POINT OF CARE | [address] | [address] | | | TESTS | | | [...] MARQUAM | [address] | [place], [place] | | | [place] [facility]INT OF CARE | [address] | [address] | | | TESTS | | | [...] - MARQUAM | [address] | [place], [place] | | | [place] POINT OF CARE | [address] | [address] | | | TESTS | | | [...] + + + | NKECHI AMES | [address] | [place], [place] | | | [place] POINT OF CARE | [address] | [address] | | | TESTS | | | [...] MARQUAM | [address] | [place], [place] | | | [place] POINT OF CARE | [address] | [address] | | | TESTS | | | [...] [facility] | [address] | [place] [address] | | | SERVICES, CORE | PARK [...] | | | LABORATORY | | | NAMIBIAN | | | SERVICES, | | | [...] | + + + + + | [facility] | [address] [facility] [address] | [place] [address] | | | SERVICES, CORE | [address] | | | + + + + + MAGNESIUM, PLASMA (11/11/2012 3:38 AM PDT) + +---------+ + + + | Component | Value | Ref Range | Performed | Pathologist | | | | | At | Signature | + +---------+ + + + | MAGNESIUM,P | 1.5 (L) | 1.8 - 2.5 mg/dL | [facility] | | | LASMA [...] [facility] | [address] [facility] [address] | [place] [address] | | | SERVICES, CORE | PARK [...] KWAKU | [address] | [place], [place] | | | JUSTINE DAWN OF JAKY | [facility] | [address] | | | TESTS | | | | + + + + + CAPILLARY BLOOD GLUCOSE (NO CHG), POC (11/10/2012 4:27 PM PDT) + +-------+ + + + | Component | Value | Ref Range | Performed | Pathologist | | | | | At | Signature | + +-------+ + + + | BLOOD | 90 | 60 - 99 mg/dL | [facility] [...] KWAKU | [address] | [place], [place] | | | [place] POINT OF CARE | [address] | [address] | | | TESTS | | | [...] AMES | [address] | [place], [place] | | | JUSTINE DAWN OF CARE | [facility] | [address] | | | TESTS | | | [...] YAKOVAM | [address] | [place], [place] | | | JUSTINE DAWN OF CARE | [facility] | [address] | | | TESTS | | | | + + + + + CAPILLARY BLOOD GLUCOSE (NO CHG), POC (11/10/2012 5:56 AM PDT) + +-------+ + + + | Component | Value | Ref Range | Performed | Pathologist | | | | | At | Signature | + +-------+ + + + | BLOOD | 90 | 60 - 99 mg/dL | [facility] [...] KWAKU | [address] | [place], [place] | | | JUST[facility] DAWN OF [facility] | [address] | [address] | | | TESTS | | | [...] [facility] | [address] | [place] [address] | | | SERVICES, CORE | PARK [...] | | | LABORATORY | | | NAMIBIAN | | | SERVICES, | | | [...] [facility] | [address] | [place] [address] | | | LYDIA RANGEL | CLARENCE [...] HOSPITAL LABORATORY | [address] | [place] [address] | | | SERVICES, CORE | CLARENCE [...] 92 | 60 - 99 mg/dL | [facility] [...] AMES | [address] | [place], [place] | | | JUSTINE DAWN OF CARE | [address] | [address] | | | TESTS | | | [...] YAKOVAM | [address] | [place], [place] | | | JUSTINE DAWN OF CARE | [address] | [address] | | | TESTS | | | [...] AMES | [address] | [place], [place] | | | JUSTINE DAWN OF CARE | [facility] | [address] | | | TESTS | | | [...] | | | Final CULTURE | | [place] | | | | RESULT:>100,000 cfu/ml | [...] + | [facility] | [address] | [place] [address] | | | [facility] | | | | + + [...] LABORATORY | [address] | [place] [address] | | | SERVICES, CORE | PARK [...] [facility] | [address] | [place] [address] | | | SERVICES, CORE | PARK [...] KWAKU | [address] | [place], [place] | | | L[place]PEZ POINT OF CARE | [address] | [address] | | | TESTS | | | [...] | | | LABORATORY | | | NAMIBIAN | | | SERVICES, | | | [...] | + + + + + | [facility] | [address] | [place] [address] | | | SERVICES, CORE | PARK [...] | + + + + + | [facility] | [address] | [place] [address] | | | SERVICES, CORE | CLARENCE [...] [facility] | [address] | [place] [address] | | | LYDIA RANGEL | CLARENCE [...] MARPATAM | [address] | [place], [place] | | | L[place]PEZ POINT OF CARE | [address] | [address] | | | TESTS | | | [...] AMES | [address] | [place], [place] | | | JUSTINE DAWN OF CARE | [facility] | [address] | | | TESTS | | | [...] KWAKU | [address] | [place], [place] | | | JUSTINE DAWN OF JAKY | [address] | [address] | | | TESTS | | | [...] [facility] | [address] | [place] [address] | | | SERVICES, CORE | PARK [...] [facility] | [address] | [place] [address] | | | SERVICES, CORE | PARK [...] | | | LABORATORY | | | NAMIBIAN | | | SERVICES, | | | [...] + + | [facility] | [address] [facility] | [place] [address] | | | SERVICES, CORE | PARK [...] MARQUAM | [address] | [place], [place] | | | JUSTINE DAWN OF JAKY | [address] | [address] | | | TESTS | | | [...] - MARQUAM | [address] | [place], [place] | | | L[place]PEZ POINT OF CARE | [address] | [address] | | | TESTS | | | [...] + + + | NKECHI AMES | [address] | [place], [place] | | | L[place] POINT OF CARE | [address] | [address] | | | TESTS | | | [...] | + + + + + | [facility] | [address] | [place] [address] | | | SERVICES, CORE | CLARENCE [...] HOSPITAL LABORATORY | [address] | [place] [address] | | | CLAIRE, LYDIA | CLARENCE [...] | | | LABORATORY | | | NAMIBIAN | | | SERVICES, | | | [...] | + + + + + | [facility] | [address] | [place] [address] | | | SERVICES, CORE | [address] | | | + + + + + X-RAY PORTABLE CHEST 1 VIEW (11/06/2012 4:46 PM PDT) + + + + + + | Component | Value | Ref Range | Performed | Pathologist | | | | | At | Signature | + + + + + + | X-RAY | STUDY: NE CHEST 1 VIEW | | | | | PORTABLE | 11/06/12 16:46:00 | | | | | CHEST 1 | INDICATION: Right upper | | | | | VIEW | lobe opacity. | | | | | | COMPARISON: Earlier same | | | | | | day a STUDY: NE CHEST 1 | | | | | [...] | | + +---------+ + + | [facility] DEPARTMENT OF | | [...] + + + | X-RAY | STUDY: NE CHEST 1 VIEW | | | | [...] | | + +---------+ + + | [facility] DEPARTMENT OF | | [...] | + + + + + | [facility] | [address] [facility] | [place] [address] | | | SERVICES, CORE | CLARENCE [...] | | | LABORATORY | | | NAMIBIAN | | | SERVICES, | | | [...] [facility] | [address] | [place] [address] | | | SERVICES, CORE | PARK [...] HOSPITAL LABORATORY | [address] | [place] [address] | | | SERVICES, CORE | CLARENCE [...] AMES | [address] | [place], [place] | | | JUSTINE DAWN OF CARE | [address] | [address] | | | TESTS | | | [...] AMES | [address] | [place], [place] | | | JUSTINE DAWN OF CARE | [address] | [address] | | | TESTS | | | [...] MARQU[facility] | [address] | [place], [place] | | | L[place]PEZ POINT OF CARE | [address] | [address] | | | TESTS | | | [...] [facility] | [address] | [place], [place] | | | JUSTINE DAWN OF CARE | [address] | [address] | | | TESTS | | | [...] AMES | [address] | [place], [place] | | | JUSTINE DAWN OF CARE | [facility] | [address] | | | TESTS | | | [...] KWAK[facility] | [address] | [place], [place] | | | JUSTINE DAWN OF JAKY | [address] | [address] | | | TESTS | | | [...] KW[facility] | [address] | [place], [place] | | | JUSTINE DAWN OF CARE | [facility] | [address] | | | TESTS | | | [...] AMES | [address] | [place], [place] | | | L[place]PEZ POINT OF CARE | [address] | [address] | | | TESTS | | | [...] KWAKU | [address] | [place], [place] | | | JUSTINE DAWN OF JAKY | [address] | [address] | | | TESTS | | | [...] MARQUAM | [address] | [place], [place] | | | JUSTINE DAWN OF CARE | [address] | [address] | | | TESTS | | | [...] AMES | [address] | [place], [place] | | | L[place]PEZ POINT OF CARE | [address] | [address] | | | TESTS | | | [...] [facility] | [address] | [place] [address] | | | CLAIRE, | [address] [...] KWAKU | [address] | [place], [place] | | | L[place]PEZ POINT OF CARE | [address] | [address] | | | TESTS | | | [...] | + + + + + | [facility] | [address] | [place] [address] | | | SERVICES, | [address] [...] [facility] | [address] | [place] [address] | | | SERVICES, | [address] [...] | + + + + + | [facility] | [address] | [place] [address] | | | SERVICES, CORE | CLARENCE [...] [facility] | [address] | [place] [address] | | | SERVICES, CORE | CLARENCE [...] [facility] | [address] | [place] [address] | | | SERVICES, CORE | [address] | | | + + + + + INR (11/06/2012 6:28 AM PDT) + +-------+ + + + | Component | Value | Ref Range | Performed | Pathologist | | | | | At | Signature | + +-------+ + + + | INR | 1.13 | 0.90 - 1.20 INR | [facility] | | | | | | LABORATORY [...] [facility] | [address] | [place] [address] | | | SERVICES, CORE | PARK [...] | | | LABORATORY | | | NAMIBIAN | | | SERVICES, | | | [...] [facility] | [address] | [place] [address] | | | LYDIA RANGEL | CLARENCE [...] view image for the detailed interpretation from [employer] results. | CARDIOLOGY | + + + + + + + + | Performing | Address | City/State/Zipcode | Phone Number | | Organization | | | | + + + + + | [facility] | [address] | [place], [place] | | | CARDIOLOGY | [address] | [address] | | + + + + + [...] [facility] | [address] | [place] [address] | | | SERVICES, CORE | PARK [...] + + + + | [facility] | [address] | [place] [address] | | | CLAIRE, LYIDA | [address] | | | + [...] | 1 tablet | | | | mwuzaizgai-saonwecelxnvb-xahmeiim | | 13 8:02 | | | [...] 13 7:36 | | | | | MAINFRAME ANALYST infusion intravenous, | | PM PDT [...] | | | | Until [facility] 11/11/12 at 0702 | | | | [...]
--- OUTSIDE RECORDS SUMMARY | ~2019-12-19 | XMS | Encounter Summary ---
Demographics + + + | Address | [address] | | | [place] [address] | + + + | Home Phone [...] [place], [place] | | | | | [address] | | + + + + + | Ellie Vang | ECON | Unknown | | + + + + + Care Team Providers + +------+ + | Care Coke Worker Name | Role | Phone | [...] | | | [address] | [place], [place] | Dx); History of | | | | Mailcode: Center | [address] | Frandy-en-Y gastric | | | | for Health and | | bypass | | | | [facility] | | | | | | [place], [place] | | | | | | [address] | | | | | | [phone] | | | +--------+---------+ + + + [...] to the healing stomach. There are also capsule filling machine operator complications of poor wound healing and gastric u lcers. These ulcers are started by smoking or using other nicotine products (vapor cigarett es etc). Gastric bypass patients should also avoid NSAIDS(ibuprofen, advil, motrin, naprosyn/naproxe n/aleve) to prevent gastric/marginal ulcers. Please visit with our Rod Cup Filler (RD) for instructions about your Bariatric diet, assistance with calorie counts, tips and tricks for working with your diet restrictions, an d recipes after bariatric surgery. Daily yogurt; even just 1 tablespoon twice a day will provide enough probiotics to optimize digestion. Try to use a high-quality, probiotic-dense yogurt (eg Zaria's, [place], Lif eway Kefir, Area Attendant Duke's Estonian Yogurt). Remember to chew your food well, [...] protein daily, and 64 oz water daily. Mold Capper Helper just changed diet to he lp her [...] by communicating with her mother - Follow Mold Capper Helper recommendations to help with nausea (decrease volume, [...] Anisa Dillon MD PGY-1, Red Surgery Pager: [phone] documented in this encounter Plan of Treatment +--------+---------+ + + + | Date | Type | Specialty | Care Team | Description | +--------+---------+ + + + | 03/15/ | Office | Cardiology | Randell Franks, | | | 2019 | Visit | | MD Deion Flannery | | | | | | [place], [place] | | | | | | [address] | | | | | | [phone] | | | | | | | | +--------+---------+ + + + documented as of this encounter Visit Diagnoses + + | Diagnosis | + + | Aftercare following surgery - Primary Encounter for other specified aftercare | + + | History of Frandy-en-Y gastric bypass Bariatric surgery status | + + documented in this encounter
--- OUTSIDE RECORDS SUMMARY | ~2019-12-19 | XMS | Encounter Summary ---
Demographics + + + | Address | [address] | | | [place] [address] | + + + | Home Phone [...] [place], [place] | | | | | [address] | | + + + + + | Ellie Vang | ECON | Unknown | | + + + + + Care Team Providers + +------+ + | Care Director Nursery School Name | Role | Phone | + [...] | [facility] | | | with MACHINE LEATHER TRIMMER | | hypertension | [address] | [address] | | | | | Right | [address] | [address] | | | | | heart | [place], [place] | Mailcode: | | | | | failure | [address] | Center [facility] | | | | | ([facility]) Type | Phone: | Health and | | | | | 2 diabetes | [phone] | Healing, | | | | | mellitus | Fax: | Building 2 | | | | | without | [phone] | [place], [place] | | | | | complication | | [address] | | | | | , with | | Phone: | | | | | long-term | | | | | | | current use | | Fax: | | | | | of insulin | | [phone] | | | | | ([facility]) | | | | | | | [...] at [facility] [address] | [address] | BMI of 70 and over, | | | | [address] | [place], [place] | adult ([facility]) (Primary | | | | Mailcode: Center | [address] | Dx); Diabetes | | | | for [employer] and | [phone] | mellitus type 2 | | | | [facility], [address] | | without retinopathy | | | | [place], [place] | | ([facility]); | | | | [address] | | Intertriginous | | | | [phone] | | candidiasis; PCOS | | | | | | (polycystic ovarian | | | | | | syndrome); AMARA | | | | | | treated with BiPAP; | | | | | | Chronic diastolic | | | | | | heart failure ([facility]); | | | | | | Essential [...] 10/30/2017 10:00 AM PDTPlease visit with our [facility] [employer] (RD) for instructions about your Bariatric diet, assistance with calorie c ounts, tips and tricks for working with your diet restrictions, and recipes after bariatric surgery. Daily yogurt; even just 1 tablespoon twice a day will provide enough probiotics to optimize digestion. Try to use a high-quality, probiotic-dense yogurt (eg Zaria's, Kobifield, Stacie lala Kefir, Cement Railroad Car Loader Duke's Ecuadorean Yogurt). Remember to chew your food well, [...] the healing stomach. There are also terminal worker complications of poor wound healing and gastric [...] Incisional hernia repair 03/01/2015 [facility]/ Dr. Cantu. Primary fascial closure and scar [...] 1 tablet by mouth once daily CALCIUM CRB&HGZ-T4-AJQ24-GENIS ORAL Take 2 tablets by mouth two [...] History Narrative Updated 11/09/15 She lives in [place] with her mother and her sister (also her caregiver) lives in an artment/duplex below. She has 2 grandchildren (age 4 and 7) who live with her daughter and son-in-law Her boyfriend lives in [place] HFpEF, DM2, HTN, Sleep Apnea (unable to [...] here and refer her to our marketing data specialist who also has expertise in physical [...] 4-5% rate of reoperation over the terminal worker (i.e. years), as well as other late [...] 5%. We reviewed the [facility] consent form. We discussed that we did [...] Flannery | | | | | | [place], [place] | | | | | | [address] | | | | | | [phone] | | | | | | | [...] | | |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 ([facility]) | | | | | | AMARA [...] B: | | | | | | Party Over Here.[employer]/CSPerformed | | | | | | by [address] | | | | | | Liliana Martinez [place] | | | | | | [address] | | | | | | [phone].Party Over Here. | | | | | | comIsmael [...] [facility] | [address] | [place], [place] | | | UNIV PTH - INTFC | | [address] | | + + + + + [...] + | [facility] | [address] | [place] [address] | | | SERVICES, LYDIA | CLARENCE [...] | + + + + + | [facility] | [address] | [place] [address] | | | SERVICES, CORE | CLARENCE [...] | + + + + + | [facility] | [address] | [place] [address] | | | SERVICES, CORE | PARK [...] [facility] | [address] | [place] [address] | | | SERVICES, CORE | PARK [...] [facility] | [address] | [place] [address] | | | SERVICES, LYDIA | CLARENCE [...] [facility] | [address] | [place] [address] | | | SERVICES, CORE | [address] | | | + + + + + documented in this encounter Visit Diagnoses + + | Diagnosis | + + | Morbid obesity with BMI of 70 and over, adult ([facility]) - Primary | + + | Diabetes mellitus type 2 without retinopathy ([facility]) Type II or unspecified type | | [...]
--- OUTSIDE RECORDS SUMMARY | ~2019-12-19 | XMS | Encounter Summary ---
Demographics + + + | Address | [address] | | | [place] [address] | + + + | Home Phone [...] + | Katalina Padilla | ECON | [address] | | | | | [place], [place] | | | | | [address] | | + + + + + | Ellie Vang | ECON | Unknown | | + + + + + Care Team Providers + +------+ + | Care Mid Level Project Manager Name | Role | Phone [...] [address] | | | | | ([facility]) | [address] | [address] | | | | | Procedures | [place], [place] | [place], [place] | | | | | CONSULT TO | [address] | [address] | | | | | CAR | Phone: | Phone: | | | | | PREVENTATIVE | [phone] | [phone] | | | | | [facility] - | Fax: | Fax: | | | | | LIPIDS | [phone] | [phone] | +--------+--------+ + + + + Reason [...] | | 2 diabetes | [place], | [place], [place] | | | | | mellitus | [place] [address] | [address] | | | | | without | Phone: | Phone: | | | | | complication | [phone] | [phone] | | | | | (HCC) | Fax: | Fax: | | | | | Procedures | [phone] | [phone] | | | | | HI EST [...] 2017 | Visit | Preventive at [facility] | MD [address] | hypertension | | | | [address] | [facility] [place] | (Primary Dx); Right | | | | Mailcode: CH9A | [address] | heart failure (HCC) | | | | [facility] | [phone] | | | | | and Healing, | | | | | | Building [address] | | | | | | [place], [place] | | | | | | [address] | | | | | | [phone] | | | +--------+---------+ + + + [...] 1 tablet by mouth once daily CALCIUM CRB&PXB-L3-ZJF82-GENIS ORAL Take 2 tablets by mouth two [...] | | 2019 | Visit | | [address] | | | | | | [place], [place] | | | | | | [address] | | | | | | [phone] | | | | | | | | +--------+---------+ + + + documented as of this encounter Visit Diagnoses + + | Diagnosis | + + | Essential hypertension - Primary | + + | Right heart failure (HCC) Congestive heart failure, unspecified | + + documented in this encounter
--- OUTSIDE RECORDS SUMMARY | ~2019-12-19 | XMS | Encounter Summary ---
Demographics + + + | Address | [address] | | | [place] [address] | + + + | Home Phone [...] [place], [place] | | | | | [address] | | + + + + + | Ellie Vang | ECON | Unknown | | + + + + + Care Team Providers + +------+ + | Care Slate Mixer Name | Role | Phone | [...] 2019 | | Center at [facility] [address] | MD Jorje [address] | | | | | [address] | [address] | | | | | Mailcode: Center | [place], [place] | | | | | [facility] and | [address] | | | | | [facility] 2 | [phone] | | | | | [place], [place] | | | | | | [address] | | | | | | [phone] | | | +--------+ + + + [...] Flannery | | | | | | [place] | | | | | | [address] | | | | | | [phone] | | | | | | | | +--------+---------+ + + + documented as of this encounter Visit Diagnoses Not on filedocumented in this encounter"
--- OUTSIDE RECORDS SUMMARY | ~2019-12-19 | XMS | Encounter Summary ---
Demographics + + + | Address | [address] | | | [place] [address] | + + + | Home Phone [...] Team Providers + +------+ + | Care Huc Name | Role | Phone | + [...] Pre-operative | | 2019 | cheduled | [facility] at | | evaluation | | | | [facility] | | | | | | [address] | | | | | | Mail Code: OC8PM | | | | | | [facility] | | | | | | and Healing, | | | | | | Building 2 | | | | | | [place], [place] | | | | | | [address] | | | | | | [phone] | | | +--------+ + + + [...] not have access to check in ti [facility], and we encourage you to contact your [...] MG TABLET ATENOLOL 50 MG TABLET CALCIUM CRB&UUV-X3-URL96-GENIS ORAL CYANOCOBALAMIN (VIT B-12) 1,000 MCG TABLET [...] ch as Uber/Lyft), or public transportation. An Uber/Lyft/delivery route driver does not count as the responsible [...] is after office hours, call the [facility] solid fiber paster operator at [phone] and ask them to page him or h er. documented in this encounter Plan of Treatment +--------+---------+ + + + | Date | Type | Specialty | Care Team | Description | +--------+---------+ + + + | 03/15/ | Office | Cardiology | Randell Franks, | | | 2019 | Visit | | [address] | | | | | | [place], [place] | | | | | | [address] | | | | | | [phone] | | | | | | | | +--------+---------+ + + + documented as of this encounter Visit Diagnoses Not on filedocumented in this encounter
--- OUTSIDE RECORDS SUMMARY | ~2019-12-19 | XMS | Encounter Summary ---
Demographics + + + | Address | [address] | | | [place] [address] | + + + | Home Phone [...] [place], [place] | | | | | [address] | | + + + + + | Ellie Vang | ECON | Unknown | | + + + + + Care Team Providers + +------+ + | Care Trade Sales Assistant Name | Role | Phone | [...] [facility] | | | with HEAD MACHINE FEEDER | | hypertension | [address] | [address] | | | | | Right | [address] | | | | | heart | [place], [place] | Mailcode: | | | | | failure | [address] | Center for | | | | | ([facility]) Type | Phone: | Health and | | | | | 2 diabetes | [phone] | Healing, | | | | | mellitus | Fax: | Building 2 | | | | | without | [phone] | [place], [place] | | | | | complication | | [address] | | | | | , with | | Phone: | | | | | long-term | | | | | | | current use | | Fax: | | | | | of insulin | | [phone] | | | | | ([facility] [...] Nilesh-en-Y | | 2019 | Visit | [facility] [address] | PRODUCT SAFETY AND STANDARDS ENGINEER [address] | gastric bypass | | | | [address] | [place], [place] | (Primary Dx); | | | | Mailcode: [facility] | [address] | Intertriginous | | | | for Health and | [phone] | candidiasis | | | | [facility] [address] | | | | | | [place], [place] | | | | | | [address] | | | | | | [phone] | | | +--------+---------+ + + + [...] Has a new PCP, [facility]. Cardenas in [facility]. Bariatric Measures: Activity: walking [...] limb 150 cm or less 8 [facility] Social History Social History [...] History Narrative Updated 11/09/15 She lives in [place] with her mother and her sister (also her caregiver) lives in an apa rtment/duplex below. She has 2 grandchildren (age 4 and 7) who live with her daughter and son-in-law Her boyfriend lives in [place] HFpEF, DM2, HTN, Sleep Apnea (unable to [...] program here and refer her to our wildlife removal specialist who also has expertise in physical [...] tongue once daily., Disp: , Rfl: CALCIUM CRB&ICN-W5-CFC74-GENIS ORAL, Take 2 tablets by mouth two [...] n/a -HTN: still on medications -Diabetes: seeing sterile process tech in December, hopes to eliminate Metformin then as recent A1c was normal Return to bariatric clinic in 6 months for 1 year follow up visit See your primary care provider for adjusting any other medications. Call if any abdominal pain, n/v/d or other issues. Pt agrees to plan and will call and/or send Cognia message if any issues. Start time 2:45, end time 3:10. I spent a total of 25 minutes face to face with this patie nt. Over 50% of visit was in counseling. HILDA Davalos Bariatric Surgery Nurse Practitioner [facility] | [address] | [place], [place] | [address] | documented in this encounter Plan of Treatment +--------+---------+ + + + | Date | Type | Specialty | Care Team | Description | +--------+---------+ + + + | 03/15/ | Office | Cardiology | Randell Franks, | | | 2019 | Visit | | [address] | | | | | | [place], [place] | | | | | | [address] | | | | | | [phone] | | | | | | | [...] + + + | [facility] | [address] | [place] [address] | | | SERVICES, CORE | PARK [...] + + + | [facility] | [address] | [place] [address] | | | SERVICES, YLDIA | [address] | | | + [...] INTFC | | | | determined by [employer] | | | | | | [employer]. See | | | | | | Compliance Statement B: | | | | | | [employer].AroundWire/CSPerformed | | | | | | by [facility],[address] | | | | | | Natalia Parson [facility] | | | | | | [address] | | | | | | [phone].Vendly. | | | | | | comIsmael [...] [facility] | [address] | [place], [place] | | | UNIV PTH - INTFC | | [address] | | + + + + + [...] B: | | | | | | [employer].AroundWire/CSPerformed | | | | | | by [facility],[address] | | | | | | Natalia Parson, [facility],[place] | | | | | | [address] | | | | | | [phone].Vendly. | | | | | | university [...] [facility] | [address] | [place], [place] | | | UNIV PTH - INTFC | | [address] | | + + + + + [...] [facility] | | | (YEN NOAH) | [facility],[address] | | REG UNIV | | | SERUM | [facility] | | PTH - INTFC | | | | [address] | | | | | | [phone].Flowgearlab. | | | | | | Ismael [...] B: | | | | | | [employer]/CS | | | | + + + + + + + + | Specimen | + + | Blood - Blood | | (substance) | + + + + + + + | Performing | Address | City/State/Zipcode | Phone Number | | Organization | | | | + + + + + | [facility] | [address] | [place], [place] | | | UNIV PTH - INTFC | | [address] | | + + + + + [...] [facility] | [address] | [place] [address] | | | SERVICES, CORE | CLARENCE [...] + + + | [facility] | [address] | [place] [address] | | | SERVICES, CORE | CLARENCE [...] | | | | | determined by [employer] | | | | | | Laboratories. See | | | | | | Compliance Statement B: | | | | | | [employer]/CSPerformed | | | | | | by [facility],[address] | | | | | | [facility],[place] | | | | | | [address] | | | | | | [phone].Vendly. | | | | | | [facility] hospitalIsmael MD, | | | | | | Lab. Director | | | | + + + + + + + + | Specimen | + + | Blood - Blood | | (substance) | + + + + + + + | Performing | Address | City/[facility] | Phone Number | | Organization | | | | + + + + + | [facility] | [address] | [place], [place] | | | UNIV PTH - INTFC | | [address] | | + + + + + [...] | + + + + + | [facility] | [address] | [place] [address] | | | SERVICES, CORE | CLARENCE [...] B: | | | | | | [employer]/CSPerformed | | | | | | by [facility],[address] | | | | | | [facility],[place] | | | | | | [address] | | | | | | [phone].Vendly. | | | | | | comIsmael [...] [facility] | [address] | [place], [place] | | | UNIV PTH - INTFC | | [address] | | + + + + + [...] + + + | [facility] | [address] | [place] [address] | | | SERVICES, CORE | PARK [...] [facility] | [address] | [place] [address] | | | SERVICES, SPECIAL | PARK [...] | [facility] | [address] | [place] [address] | | | SERVICES, CORE | CLARENCE [...] at | | | | | | [email or web address].AroundWire/csPerfor | | | | | | med by [facility] | | | | | | Laboratories,[address] | | | | | | Juan, [facility],[place] [address] | | | | | | [phone].Vendly. | | | | | | [facility] hospitalIsmael MD, | | | | | | Lab. Director | | | | + + + + + + + + | Specimen | + + | Blood - Blood | | (substance) | + + + + + + + | Performing | Address | City/State/[facility] Hospitalcoid | Phone Number | | Organization | | | | + + + + + | [facility] | [address] | [place], [place] | | | UNIV PTH - INTFC | | [address] | | + + + + + [...] | + + + + + | [facility] | [address] | [place] [address] | | | SERVICES, CORE | CLARENCE [...]
--- OUTSIDE RECORDS SUMMARY | ~2019-12-19 | XMS | Encounter Summary ---
Demographics + + + | Address | [address] | | | [place] [address] | + + + | Home Phone [...] [place], [place] | | | | | [address] | | + + + + + | Ellie Vang | ECON | Unknown | | + + + + + Care Team Providers + +------+ + | Care Slag Skimmer Name | Role | Phone | [...] Visit | Medicine Clinic at | J, CLERICAL PRODUCTION WORKER | (Primary Dx); | | | | [facility][Note 2] | | Dysphagia, | | | | [address] | | unspecified type; | | | | Mail Code: OC8PM | | Hypertension, | | | | Center [facility] | | unspecified type; | | | | and Healing, | | Hyperlipidemia, | | | | Building 2 | | unspecified | | | | [place], [place] | | hyperlipidemia type; | | | | [address] | | Diastolic | | | | [phone] | | congestive heart | | | [...] on | Lateral; adb- upper quadrant; | Etehl Brito RN | Orquidea Parks RN | [...] | | Endotracheal Tube; 7; Oral; | ENGINEERING LAB TECHNICIAN | ENGINEERING LAB TECHNICIAN | | | Cuffed; 06/23/18; 1542 | [...] encounter Patient Instructions Patient Instructions Tiara Mckeon, CLERICAL PRODUCTION WORKER - 06/16/2018 3:15 PM [facility] PREOPERATIVE INSTRUCTIONS Please consider having [...] your procedure. Surgery check-in location: Admitting - [facility] Surgery Check in Time: The Preoperative Medicine [...] it is after office hours, call the [facility] mechanical operator at [phone] and ask them to page him or [...] weight loss and diuretic tx, follows with cutter operator helper Hypothyroidism stabilized on hormone replacement Type 2 [...] renal failure no electrolyte abnormalities no dialysis Urology/Line Tender Flakeboard: Urologic Conditions: nephrolithiasis Endo: Diabetes: type 2 [...] sublingual Place under tongue once daily. CALCIUM CRB&YVF-D6-FDJ79-GENIS ORAL Take 2 tablets by mouth two [...] less 8 [facility] Family history reviewed / [...] weight loss and diuretic tx, follows with cutter operator helper. Appears comp ensated today. Hypothyroidism stabilized on hormone replacement. Take on DOS as usual Type 2 diabetes, well controlled with A1c 6.1 Thank you for the opportunity to contribute to this patient's care. HILDA Lagos [facility] PBB PREOPERATIVE MEDICINE CLINIC AT [facility] 4TH FLOOR [address] [place] [address] I advised the patient regarding [...] [place] | | | | | | [address] | | | | | | [phone] | | | | | | | [...]
--- OUTSIDE RECORDS SUMMARY | ~2019-12-19 | XMS | Encounter Summary ---
Demographics + + + | Address | [address] | | | [place] [address] | + + + | Home Phone [...] Providers + +------+ + | Care Monorail Operator Name | Role | Phone | [...] Encounter | [address] | [place] [address] [address] | | | | | [address] | [address] | | | | | [place], [place] | [place] [address] | | | | | [address] | [phone] | | | | | [phone] | | | +--------+ + + + [...] | | | | | [place] [address] | | | | | | [phone] | | | | | | | | +--------+---------+ + + + documented as of this encounter Visit Diagnoses Not on filedocumented in this encounter"
--- OUTSIDE RECORDS SUMMARY | ~2019-12-19 | XMS | Encounter Summary ---
[...] + | Katalina Padilla | ECON | [address] | | | | | [place], [place] | | | | | [address] | | + + + + + | Ellie Vang | ECON | Unknown | | + + + + + Care Team Providers + +------+ + | Care Stable Hand Name | Role | Phone | + +------+ + | Kenyatta Cardenas MD | PCP | | + +------+ + Encounter Details +--------+ + + + + | Date | Type | Department | Care Team | Description | +--------+ + + + + | 06/06/ | Telephone | Dig[facility]ive Health | Chilo | | | 2019 | | [place] [facility] [address] | MD Jorje [address] | | | | | [address] | [address] | | | | | Mailcode: Center | [place], [place] | | | | | [facility] and | [address] | | | | | [facility] 2 | [phone] | | | | | [place], [place] | | | | | | [address] | | | | | | [phone] | | | +--------+ + + + [...] | | | | | [place], [place] | | | | | | [address] | | | | | | [phone] | | | | | | | | +--------+---------+ + + + documented as of this encounter Visit Diagnoses Not on filedocumented in this encounter"
--- OUTSIDE RECORDS SUMMARY | ~2019-12-19 | XMS | Encounter Summary ---
Demographics + + + | Address | [address] | | | [place] [address] | + + + | Home Phone [...] [place], [place] | | | | | [address] | | + + + + + | Ellie Vang | ECON | Unknown | | + + + + + Care Team Providers + +------+ + | Care Senior Information Security Architect Name | Role | Phone | [...] | [facility] | | | with STORE ADMINISTRATOR | | hypertension | [address] | [address] | | | | | Right | [address] | [address] | | | | | heart | [place], [place] | Mailcode: | | | | | failure | [address] | Center for | | | | | ([facility]) Type | Phone: | Health and | | | | | 2 diabetes | [phone] | Healing, | | | | | mellitus | Fax: | Building [address] | | | | | without | [phone] | [place], [place] | | | | | complication | | [address] | | | | | , with | | Phone: | | | | | long-term | | | | | | | current use | | Fax: | | | | | of insulin | | [phone] | | | | | ([facility]) | | | | | | | [...] Nilesh-en-Y | | 2019 | Visit | [facility] [address] | DIRECTOR OF SEARCH ENGINE OPTIMIZATION [address] | gastric bypass | | | | [address] | [place], [place] | (Primary Dx); | | | | Mailcode: [place] | [address] | Intertriginous | | | | for Health and | [phone] | candidiasis | | | | [facility], [facility] [address] | | | | | | [place], [place] | | | | | | [address] | | | | | | [phone] | | | +--------+---------+ + + + [...] a new PCP, Dr. Cardenas in [facility]. Bariatric Measures: Activity: walking 1.5-2 miles daily [...] of breath Staphylococcal infection Stroke ([facility]) TIA (transient ischemic attack) due to Bromocriptine Tinea corporis UTI (urinary tract infection) Past Surgical History Procedure Laterality Date Tonsillectomy and adenoidectomy Appendectomy, open 2010 Umbilical hernia repair 2010 Treatment of ankle fracture with screws remaining Incision and drainage of wound abscess x2 midline transverse wound s/p open appendectomy 2010 Ventral hernia repair 10/2012 Dr. Andie Brian Incisional hernia repair 03/01/2015 [facility]/ Dr. Cantu. Primary fascial closure and scar excision Lap gastric byp, and nilesh-en-y gastroenterostomy w/ nilesh limb 150 cm or less 8 [facility] Social History Social History Marital status: [...] History Narrative Updated 11/09/15 She lives in [place] with her mother and her sister (also her caregiver) lives in an apa rtment/duplex below. She has 2 grandchildren (age 4 and 7) who live with her daughter and son-in-law Her boyfriend lives in [place] HFpEF, DM2, HTN, Sleep Apnea (unable to [...] program here and refer her to our psych specialist who also has expertise in physical [...] tongue once daily., Disp: , Rfl: CALCIUM CRB&UPO-E2-IUO42-GENIS ORAL, Take 2 tablets by mouth two [...] n/a -HTN: still on medications -Diabetes: seeing toe trimmer in December, hopes to eliminate Metformin then as recent A1c was normal Return to bariatric clinic in 6 months for 1 year follow up visit See your primary care provider for adjusting any other medications. Call if any abdominal pain, n/v/d or other issues. Pt agrees to plan and will call and/or send Eniram message if any issues. Start time 2:45, end time 3:10. I spent a total of 25 minutes face to face with this patie nt. Over 50% of visit was in counseling. HILDA Davalos Bariatric Surgery Nurse Practitioner [facility] | [address] | [place], [place] | [address] | documented in this encounter Plan of Treatment +--------+---------+ + + + | Date | Type | Specialty | Care Team | Description | +--------+---------+ + + + | 03/15/ | Office | Cardiology | Randell Franks, | | | 2019 | Visit | | [address] | | | | | | [place], [place] | | | | | | [address] | | | | | | [phone] | | | | | | | [...] [facility] | [address] | [place] [address] | | | SERVICES, CORE | PARK [...] [facility] | [address] | [place] [address] | | | SERVICES, LYDIA | CLARENCE [...] INTFC | | | | determined by [employer] | | | | | | [employer]. See | | | | | | Compliance Statement B: | | | | | | Interhyp.InteraXon/CSPerformed | | | | | | by [email or web address],[address] | | | | | | Natalia Parson [facility] | | | | | | [address] | | | | | | [phone].Interhyp. | | | | | | comIsmael [...] [facility] | [address] | [place], [place] | | | UNIV PTH - INTFC | | [address] | | + + + + + [...] B: | | | | | | Interhyp.InteraXon/CSPerformed | | | | | | by [email or web address],[address] | | | | | | Natalia Parson, [facility] | | | | | | [address] | | | | | | [phone].Interhyp. | | | | | | [facility] MD, | | | | | [...] [facility] | [address] | [place], [place] | | | UNIV PTH - INTFC | | [address] | | + + + + + [...] [facility] | | | (YEN NOAH) | [email or web address],500 | | REG UNIV | | | SERUM | [facility] | | PTH - INTFC | | | | [address] | | | | | | [phone].[employer] for [employer]. | | | | | | Ismael [...] B: | | | | | | [facility]/CS | | | | + + + + + + + + | Specimen | + + | Blood - Blood | | (substance) | + + + + + + + | Performing | Address | City/State/Zipcode | Phone Number | | Organization | | | | + + + + + | [facility] | [address] | [place], [place] | | | UNIV PTH - INTFC | | [address] | | + + + + + [...] [facility] | [address] | [place] [address] | | | SERVICES, CORE | CLARENCE [...] + + | [facility] | [address] | [place] [address] | | | SERVICES, CORE | CLARENCE [...] | | | | | determined by [employer] | | | | | | Laboratories. See | | | | | | Compliance Statement B: | | | | | | [facility]/CSPerformed | | | | | | by [email or web address],[address] | | | | | | [facility] | | | | | | [address] | | | | | | [phone].Interhyp. | | | | | | [facility]el MD, | | | | | | Lab. Director | | | | + + + + + + + + | Specimen | + + | Blood - Blood | | (substance) | + + + + + + + | Performing | Address | City/[facility] | Phone Number | | Organization | | | | + + + + + | [facility] | [address] | [place], [place] | | | UNIV PTH - INTFC | | [address] | | + + + + + [...] | + + + + + | CX | [address] | [place] [address] | | | SERVICES, CORE | CLARENCE [...] | | | | | determined by [facility] | | | | | | Laboratories. See | | | | | | Compliance Statement B: | | | | | | Interhyp.InteraXon/CSPerformed | | | | | | by [email or web address],[address] | | | | | | [facility] | | | | | | [address] | | | | | | [phone].Interhyp. | | | | | | comIsmael [...] [facility] | [address] | [place], [place] | | | UNIV PTH - INTFC | | [address] | | + + + + + [...] [facility] | [address] | [place] [address] | | | SERVICES, CORE | PARK [...] | + + + + + | [facility] | [address] | [place] [address] | | | SERVICES, SPECIAL | PARK [...] | + + + + + | [facility] | [address] | [place] [address] | | | SERVICES, CORE | CLARENCE [...] at | | | | | | [email or web address] | | | | | | med by [facility] | | | | | | Laboratories,[address] | | | | | | [place], [facility] [address] | | | | | | [phone].Interhyp. | | | | | | [facility] hospital[facility]el MD, | | | | | | Lab. Director | | | | + + + + + + + + | Specimen | + + | Blood - Blood | | (substance) | + + + + + + + | Performing | Address | City/State/[facility] | Phone Number | | Organization | | | | + + + + + | [facility] | [address] | [place], [place] | | | UNIV PTH - INTFC | | [address] | | + + + + + [...] | | | LABORATORY | | | PANAMANIAN | | | SERVICES, | | | [...] | + + + + + | CX | [address] | [place] [address] | | | SERVICES, CORE | CLARENCE [...]
--- OUTSIDE RECORDS SUMMARY | ~2019-12-19 | XMS | Encounter Summary ---
Demographics + + + | Address | [address] | | | [place] [address] | + + + | Home Phone [...] Organization | [facility] | | | and Jeffana | [...] Providers + +------+ + | Care Director Global Development Name | Role | Phone | [...] | | [address] | [place] [address] | | | | | [address] | | | | | | [phone] | | | +--------+ + + + [...] RICHEY | | | | | | [place] [address] | | | | | | [phone] | | | | | | | [...]
--- OUTSIDE RECORDS SUMMARY | ~2019-12-19 | XMS | Encounter Summary ---
Demographics + + + | Address | [address] | | | [place] [address] | + + + | Home Phone [...] [place], [place] | | | | | [address] | | + + + + + | Ellie Vang | ECON | Unknown | | + + + + + Care Team Providers + +------+ + | Care Assurance Senior Manager Insurance Name | Role | Phone | + +------+ + | Fadi Goodrich DO | PCP | | + +------+ + Reason for Visit + + + | Reason | Comments | + + + | Medical Records | Letter from housing case manager. | | Review | | + + + Encounter Details +--------+ + + + + | Date | Type | Department | Care Team | Description | +--------+ + + + + | 11/08/ | Abstract | Dig[facility]ive [facility] | Shereen Georges, | Medical Records | | 2014 | | Center at [facility] [address] | [facility] [address] | Review (Letter from | | | | [address] | [place], [place] | housing case manager. ) | | | | Mailcode: [place] | [address] | | | | | [facility] and | [phone] | | | | | [address] [address] | | | | | | [place], [place] | | | | | | [address] | | | | | | [phone] | | | +--------+ + + + [...] [address] | | | | | | [place], [place] | | | | | | [address] | | | | | | [phone] | | | | | | | | +--------+---------+ + + + documented as of this encounter Visit Diagnoses Not on filedocumented in this encounter"
--- OUTSIDE RECORDS SUMMARY | ~2019-12-19 | XMS | Encounter Summary ---
Demographics + + + | Address | [address] | | | [place] [address] | + + + | Home Phone [...] + | Author | [facility] | | | and [place] | + + + | Organization | [facility] | [...] Providers + +------+ + | Care Painter And Body Mechanic Apprentice Name | Role | Phone | + +------+ + PCP | Unavailable | + +------+ + Encounter Details +--------+ + + + + | Date | Type | Department | Care Team | Description | +--------+ + + + + | 10/20/ | Orders Only | [facility] | Dharmesh Escobar, | | | 2016 | | NEPHROLOGY [place] | RING BARKER OPERATOR [address] | | | | | [address] | [address] | | | | | [address] [place], [place] | [place] | | | | | [address] | [address] | | | | | [phone] | [phone] | | | | | | | [...] F | | | | | | [place] [address] | | | | | | [phone] | | | | | | | [...]
--- OUTSIDE RECORDS SUMMARY | ~2019-12-19 | XMS | Encounter Summary ---
Demographics + + + | Address | [address] | | | [place] [address] | + + + | Home Phone [...] [place], [place] | | | | | [address] | | + + + + + | Ellie Vang | ECON | Unknown | | + + + + + Care Team Providers + +------+ + | Care Supervisor Phosphoric Acid Name | Role | Phone | + [...] | | 2012 | | [address]IN[address] [facility] | [address] [facility] | ventral hernia; | | | | Rd [facility] | [facility] [address] | possible bowel | | | | Hospital Admitting | [place], [place] | resection; | | | | Desk Located on the | [address] | | | | | 9th floor | [phone] | | | | | [place], [place] | | | | | | [address] | | | +--------+---------+ + + + [...] yuriy tral hernia. She was transferred from [place] for surgical evaluation of possible incarcer ated [...] Cipro. POD 5 she was discharged ho ms, tolerating a diabetic diet. Having bowel function. [...] yuriy tral hernia. She was transferred from [place] for surgical evaluation of possible incarcer ated [...] Cipro. POD 5 she was discharged ho ms, tolerating a diabetic diet. Having bowel function. [...] keeping you from eating and drinking, Call [phone]. It is important to stay hydrated! If [...] taking narcotic that contain Tylenol (acetaminophen) Example: [place], Lortab, Vicodin, hydrocodone/APAP, Percocet, Tylenol #3 PAIN MEDICATIONS are ONLY REFILLED during CLINIC APPOINTMENTS. Please call [phone] to schedule an appointment. Your Follow-Up Plan Follow up with ROBIN MEJIA in 2 weeks. Contact information: [address] [facility] [address] Vitals on discharge: Ht 154.9 cm (5' [...] might be different f rom the original. [facility] DEPARTMENT OF SURGERY EMERGENCY GENERAL SURGERY Division [...] without erythema and no infecti on noted. [place] intact : good urine output and Patient [...] clinic - [place] [address] pager number [place] [phone] [facility] [address] Aminta Goodwin Md - 11/11/2012 7:[address] [facility] DEPARTMENT OF SURGERY EMERGENCY GENERAL SURGERY Division of Trauma and Critical Care Attending Physician: Andie Brian MD Progress Note Note Date: 11/11/2012 Admission Date: 11/06/2012 DYLAN ROMERO, [id number] Hospital Day #5 INTERVAL EVENTS none acute [...] mg, Rectal, DAILY PRN, Aminta Wilson MD txtikxncep-nucmpocpnvuqy-aznqxjrf (aka FIORICET) 50-325-40 mg 1 Tab, 1 [...] 20 mg, 20 mg, Oral, BID, Aminta Wilosn MD, 20 mg at 10/25 03/08 08 [...] Jayne Ponce MD, 1 mg at 11/10/12801 lwmrusqvwh-tgugecekibamu-yetgorbt (aka FIORICET) 50-325-40 mg 1 Tab, 1 [...] in preservative free NaCl 0.9% 50 mL NEWSPAPER OR PERIODICAL EDITOR infusion, , Intravenous, KIESHA NUOUS, Aracely Flores [...] diet -add bowel regimen Acute pain -HM NEWSPAPER OR PERIODICAL EDITOR, tylenol -convert to oral pain medication once [...] Fluids: LR 125ml/hr Feeding: NPO Analgesia: Dilaudid NEWSPAPER OR PERIODICAL EDITOR Sedation: not indicated Thromboprophylaxis: enoxaparin Head of [...] Ponce MD, 1 mg at 11/09/12 0855 qaouikkcmn-uoyfrokcmywwb-nufxxeyc (aka FIORICET) 50-325-40 mg 1 Tab, 1 [...] in preservative free NaCl 0.9% 50 mL NEWSPAPER OR PERIODICAL EDITOR infusion, , Intravenous, KIESHA NUOUS, Aracely Flores [...] drainage <30ml for 24hrs Acute pain -HM NEWSPAPER OR PERIODICAL EDITOR, tylenol Diabetes: -insulin gtt not started due [...] Fluids: LR 125ml/hr Feeding: NPO Analgesia: Dilaudid NEWSPAPER OR PERIODICAL EDITOR Sedation: not indicated Thromboprophylaxis: enoxaparin Head of bed: > 30 Ulcer prophylaxis: pepcid Glycemic control: adequate Activity/PT/OT: Ongoing Yogurt: ABX on Probiotics:yes AMINTA WILSON MD General Surgery, R1 aleb Walker S, N P - 11/08/2012 8:49 AM PDT [facility] DEPARTMENT OF SURGERY EMERGENCY GENERAL SURGERY Division of Trauma and Critical Care Attending Physician: Andie Brian MD Progress Note Note Date: 11/08/2012 Admission Date: 11/06/2012 DYLAN ROMERO, [id number] Hospital Day #2 INTERVAL EVENTS NO SUBJECTIVE Pain well controlled; has headache attributed to dilaudid NEWSPAPER OR PERIODICAL EDITOR Tylenol did not help. Flatus: YES Tolerating [...] trials today. -DC ruiz Acute pain -HM NEWSPAPER OR PERIODICAL EDITOR, tylenol Diabetes: -insulin gtt not started due [...] Fluids: LR 125ml/hr Feeding: NPO Analgesia: Dilaudid NEWSPAPER OR PERIODICAL EDITOR Sedation: not indicated Thromboprophylaxis: enoxaparin Head of bed: > 30 Ulcer prophylaxis: pepcid Glycemic control: adequate Activity/PT/OT: Ongoing Yogurt: ABX on Probiotics: No KALEB WALKER NP [facility] [address] [place] [facility], [facility] elvin Stephens MD - 11/07/2012 9:51 PM [...] 7.33* PCO2 49* PO2 113* HCO3 25 GEVMU6EDJ 26 B1QWBJYN 98.3* R9EXRRKWE -- FIO2 60 ABGEXCESS -0.9 Assessment, Medical Decision Making and Plan 1. Incarcerated hernia, now s/p repair and panniculectomy -Binder, pain control, minimize nausea and coughing PRN. -NG clamping trials today. 2. Acute pain -HM NEWSPAPER OR PERIODICAL EDITOR, tylenol 3. Diabetes: -insulin gtt 4. Morbid [...] Dione Grimes MD R-2, General Surgery Pager: [phone] [facility] [place] Department of Surgery Trauma ICU Team Pager (24hrs/day): [phone] I was present with the resident during the history and exam. I discussed the case with the resident and agree with the findings and plan as documented in the resident s note. KELVIN STEPHENS MD [facility] [address] [place] [address] [id number] Onur Graves MD - 11/07/2012 2:37 AM [...] in preservative free NaCl 0.9% 50 mL NEWSPAPER OR PERIODICAL EDITOR infusion Intravenous CON TINUOUS Aracely Flores, DO [...] POD#1 s/p primary repair. 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 pension agent and prn tylenol, continue prozac and zyprexa [...] F: probable remain NPO today A: dilaudid pension agent, prn tylenol S: prn benzos as she is at home T: will start prophylactic lovenox today H: HOB >30 degrees U: pepcid G: insulin gtt ONUR ALLEN MD, PGY3 [place] [address] [id number] [place] [address] Onelia Shrestha MD - 11/06/2012 8:41 AM PDT [facility] DEPARTMENT OF SURGERY Division of Trauma and Critical Care Emergency General Surgery / Acute Care Surgery Attending Physician: Andie Brian MD Note Date: 11/06/2012 Admission Date: 11/06/2012 DYLAN ROMERO, [id number] Hospital Day #0 OVERNIGHT EVENTS: anxious SUBJECTIVE: [...] wwp LABS: reviewed and are available in [facility] (if new data) IMAGING: VASCULAR: [...] [address]ann[address] | | | | | | [place], [place] | | | | | | [address] | | | | | | [phone] | | | | | | | [...] Mae | | | | | | [place] | | | | + + + + + + + + | Specimen | + + | | + + + +---------+ + + | Performing | Address | City/State/Zipcode | Phone Number | | Organization | | | | + +---------+ + + | [facility] DEPARTMENT OF | | | [...] 60 - 99 mg/dL | [facility] - | | | GLUCOSE, [...] - [facility] | [address] | [place], [place] | | | [place] POINT OF CARE | [address] | [address] | | | TESTS | | | [...] + + + | [facility] | [address] | [place], [place] | | | [facility] | [address] | [address] | | | TESTS | | | [...] + | [facility] | [address] [facility] [address] | [place] [address] | | | SERVICES, CORE | CLARENCE [...] | | | LABORATORY | | | [place] | | | SERVICES, | | | [...] + + + + | [facility]ORY | [address] | [place] [address] | | | SERVICES, CORE | PARK [...] + + + + | [facility] | [address] | [place] [address] | | | SERVICES, CORE | PARK [...] 60 - 99 mg/dL | [facility] - | | | GLUCOSE, [...] AMES | [address] | [place], [place] | | | [facility]WN OF [place]Y | [facility] | [address] | | | TESTS | | | [...] [facility] | [address] | [place], [place] | | | [facility]WN OF CARE | [address] | [address] | | | TESTS | | | [...] 60 - 99 mg/dL | [facility] - | | | GLUCOSE, [...] [facility] | [address] | [place], [place] | | | [facility] OF [place] | [address] | [address] | | | TESTS | | | [...] AMES | [address] | [place], [place] | | | [facility] OF [place] | [facility] | [address] | | | TESTS | | | [...] [facility] | [address] | [place], [place] | | | [place] [facility] | [facility] | [address] | | | TESTS | | | [...] [facility] | [address] | [place] [address] | | | SERVICES, CORE | PARK [...] | | | LABORATORY | | | [place] | | | SERVICES, | | | [...] | [facility] | [address] | [place] [address] | | | SERVICES, CORE | CLARENCE [...] [facility] | [address] | [place] [address] | | | LYDIA RANGEL | CLARENCE [...] [facility] | [address] | [place], [place] | | | [place] [facility]INT OF CARE | [address] | [address] | | | TESTS | | | [...] AMES | [address] | [place], [place] | | | [place] POINT OF CARE | [address] | [address] | | | TESTS | | | [...] MARQUAM | [address] | [place], [place] | | | [facility] OF [place] | [address] | [address] | | | TESTS | | | [...] KWAKU | [address] | [place], [place] | | | JUST[facility] DAWN OF CARE | [facility] | [address] | | | TESTS | | | [...] AMES | [address] | [place], [place] | | | [facility] OF [place] | [facility] | [address] | | | TESTS | | | [...] + | [facility] | [address] [address] | [place] [address] | | | SERVICES, CORE | CLARENCE [...] | | | LABORATORY | | | [place] | | | SERVICES, | | | [...] MDRD equation recommended by the | [facility] | | National Kidney Disease [...] + + + + | [facility] | [address] | [place] [address] | | | LYDIA RANGEL | CLARENCE [...] + + + + | [facility] | [address] | [place] [address] | | | SERVICES, CORE | CLARENCE [...] AMES | [address] | [place], [place] | | | [facility] OF [place] | [address] | [address] | | | TESTS | | | [...] MARQUAM | [address] | [place] | | | [facility] [place] | [address] | [address] | | | TESTS | | | [...] N[facility]I [facility]ES | [address] | [place], [place] | | | JUSTINE DAWN OF CARE | [address] | [address] | | | TESTS | | | [...] | | | Final CULTURE | | [place] | | | | RESULT:>100,000 cfu/ml | [...] + | [facility] | [address] | [place] [address] | | | [place] | | | [...] + | [facility] | [address] | [place] [address] | | | SERVICES, CORE | PARK [...] [facility] | [address] | [place] [address] | | | CLAIRE, LYDIA | CLARENCE [...] AMES | [address] | [place], [place] | | | [facility] [facility] | [address] | [address] | | | TESTS | | | [...] | | | LABORATORY | | | [place] | | | SERVICES, | | | [...] [facility] | [address] | [place] [address] | | | SERVICES, CORE | CLARENCE [...] [facility] | [address] | [place] [address] | | | SERVICES, CORE | CLARENCE [...] [facility] | [address] | [place] [address] | | | SERVICES, CORE | PARK [...] [facility] | [address] | [place], [place] | | | [facility] OF [place] | [facility] | [address] | | | TESTS | | | [...] AMES | [address] | [place], [place] | | | [facility]WN OF CARE | [address] | [address] | | | TESTS | | | [...] [facility] | [address] | [place], [place] | | | [facility]WN OF CARE | [address] | [address] | | | TESTS | | | [...] [facility] | [address] | [place] [address] | | | SERVICES, CORE | PARK [...] [facility] | [address] | [place] [address] | | | SERVICES, CORE | PARK [...] | | | LABORATORY | | | [place] | | | SERVICES, | | | [...] [facility] | [address] | [place] [address] | | | SERVICES, CORE | CLARENCE [...] [facility] | [address] | [place], [place] | | | [place] POINT OF CARE | [address] | [address] | | | TESTS | | | [...] [facility] | [address] | [place], [place] | | | JUST[facility]WN OF CARE | [address] | [address] | | | TESTS | | | [...] AMES | [address] | [place], [place] | | | [facility] | [address] | [address] | | | TESTS | | | [...] + + + + + | [facility] | [address] | [place] [address] | | | SERVICES, CORE | PARK [...] [facility] | [address] | [place] [address] | | | SERVICES, CORE | CLARENCE [...] | | | LABORATORY | | | [place] | | | SERVICES, | | | [...] | + + + + + | [facility] | [address] | [place] [address] | | | SERVICES, CORE | [address] | | | + + + + + X-RAY PORTABLE CHEST 1 VIEW (11/06/2012 4:46 PM PDT) + + + + + + | Component | Value | Ref Range | Performed | Pathologist | | | | | At | Signature | + + + + + + | X-RAY | STUDY: [place] CHEST 1 VIEW | | | | | PORTABLE | 11/06/12 16:46:00 | | | | | CHEST 1 | INDICATION: Right upper | | | | | VIEW | lobe opacity. | | | | | | COMPARISON: Earlier same | | | | | | day a STUDY: [place] CHEST 1 | | | | | [...] + + + | X-RAY | STUDY: [place] CHEST 1 VIEW | | | | [...] | [facility] | [address] | [place] [address] | | | LYDIA RANGEL | CLARENCE [...] | | | LABORATORY | | | [place] | | | SERVICES, | | | [...] MDRD equation recommended by the | [facility] | | National Kidney Disease [...] [facility] | [address] | [place] [address] | | | SERVICES, CORE | CLARENCE [...] + + + + | [facility] | [address] | [place] [address] | | | SERVICES, CORE | CLARENCE [...] 60 - 99 mg/dL | [facility] - | | | GLUCOSE, [...] AMES | [address] | [place], [place] | | | [facility] | [address] | [address] | | | TESTS | | | [...] AMES | [address] | [place], [place] | | | [place] POINT OF CARE | [address] | [address] | | | TESTS | | | [...] [facility] | [address] | [place], [place] | | | [place] POINT OF CARE | [address] | [address] | | | TESTS | | | [...] [facility] | [address] | [place], [place] | | | [facility]WN OF CARE | [address] | [address] | | | TESTS | | | [...] AMES | [address] | [place], [place] | | | [place] POINT OF CARE | [address] | [address] | | | TESTS | | | [...] [facility] | [address] | [place], [place] | | | JUSTINE DAWN OF CARE | [address] | [address] | | | TESTS | | | | + + + + + CHLORIDE (BERNADR)VALERIE (11/06/2012 11:08 AM PDT) + +-------+ + [...] [facility] | [address] | [place], [place] | | | [facility]WN OF CARE | [address] | [address] | | | TESTS | | | [...] AMES | [address] | [place], [place] | | | [place] POINT OF CARE | [address] | [address] | | | TESTS | | | [...] + + | [facility] | [address] | [place], [place] | | | JUST[facility] DAWN OF CARE | [address] | [address] | | | TESTS | | | [...] [facility] | [address] | [place], [place] | | | [place] POINT OF CARE | [address] | [address] | | | TESTS | | | [...] AMES | [address] | [place], [place] | | | [facility]WN OF [place] | [address] | [address] | | | TESTS | | | [...] + + + + | [facility] | [address] | [place] [address] | | | CLAIRE | CLARENCE BONNER [...] 60 - 99 mg/dL | [facility] - | | | GLUCOSE, [...] [facility] | [address] | [place], [place] | | | [place] POINT OF CARE | [address] | [address] | | | TESTS | | | [...] + + + + | [facility] | [address] | [place] [address] | | | SERVICES, | [address] [...] [facility] | [address] | [place] [address] | | | SERVICES, | [address] [...] + + + + + | [facility] | [address] | [place] [address] | | | SERVICES, CORE | CLARENCE [...] [facility] | [address] | [place] [address] | | | SERVICES, CORE | PARK [...] [facility] | [address] | [place] [address] | | | SERVICES, CORE | PARK [...] [facility] | [address] | [place] [address] | | | SERVICES, CORE | PARK [...] | | | LABORATORY | | | [place] | | | SERVICES, | | | [...] MDRD equation recommended by the | [facility] | | National Kidney Disease [...] + + + + | [facility] | [address] | [place] [address] | | | SERVICES, CORE | PARK [...] view image for the detailed interpretation from [employer] results. | CARDIOLOGY | + + + + + + + + | Performing | Address | City/State/Zipcode | Phone Number | | Organization | | | | + + + + + | [facility] | [address] | [place], [place] | | | CARDIOLOGY | [facility] | [address] | | + + + + + [...] [facility] | [address] | [place] [address] | | | SERVICES, CORE | CLARENCE [...] [facility] | [address] | [place] [address] | | | SERVICES, CORE | [address] | | | + + + + + documented in this encounter Visit Diagnoses + + | Diagnosis | + + | Incarcerated ventral hernia Ventral hernia, unspecified, with obstruction | + + documented in this encounter
--- OUTSIDE RECORDS SUMMARY | ~2019-12-19 | XMS | Encounter Summary ---
Demographics + + + | Address | [address] | | | [place] [address] | + + + | Home Phone [...] [place], [place] | | | | | [address] | | + + + + + [...] examination | | 2018 | Visit | [facility] | DNP,ANP [address] | (Primary Dx) | | | | [facility] | [facility] [address] | | | | | [address] | [place], [place] | | | | | Mail Code: OC8PM | [address] | | | | | [facility] | [phone] | | | | | and Healing, | | | | | | [address] | | | | | | [place], [place] | | | | | | [address] | | | | | | [phone] | | | +--------+---------+ + + + [...] it is after office hours, call the [facility] tow motor operator at [phone] and ask them to page him or [...] d function per TTE ( 02/16/2017) from [facility] FREEjit: Improved and stable. T2DM - controlled with [...] failure no electrolyte abnormalities no dialysis Urology/Physical Medicine Teacher: Within Defined Limits except as noted below [...] mg by mouth two times daily. CALCIUM [id number]-[id number]-GENIS ORAL Take 2 tablets by mouth two [...] Brian Incisional hernia repair 03/01/2015 [facility]/ Dr. Cantu. Primary fascial closure [...] 98ms, QTC 460ms, TTE ( 02/16/2017) - [employer] 1. Overall left ventricular systolic function is normal with, an EF between 60 - 65 %. 2. The right ventricle is normal in size and function. 3. No significant valvular abnormalities are noted. 4. In comparison to the previous (technically difficult) echocardiographic study done 01/01, no signfiicant changes are noted. TTE (02/17/2016) - [employer] Conclusions 1. There is normal left ventricular [...] and resp iratory change. TTE (11/07/2015) - [facility] Final Impressions: 1. The interpretation [...] d function per TTE ( 02/16/2017) form [facility]. Improved and stable. - Confirmed with Dr. [...] Advised to bring her own apparatus for [facility] GERD - On omeprazole. Chronic Fluid retention [...] to this patient's care. Gay Hoff, ERENDIRA,ANP [facility] 4TH FLOOR [address] [facility] [address] I spent time (45 minutes, [...] [address] | | | | | | [place], [place] | | | | | | [address] | | | | | | [phone] | | | | | | | | +--------+---------+ + + + + + +--------+ + + | Name | Type | Priori | Associated Diagnoses | Order Schedule | | | | ty | | | + + +--------+ + + | COMMUNICATION TO [facility] | Procedures | Routin | Preop [...] +--------+ + + + | KS COLLECTION VENOUS | Routin | 02/22/2018 | [...] + + | [facility] | [address] [facility] [address] | [place] [address] | | | SERVICES, CORE | CLARENCE [...] [facility] | [address] | [place] [address] | | | SERVICES, | [address] [...] [facility] | [address] | [place] [address] | | | SERVICES, | [address] [...] [facility] | | considered for monitoring terminal make up operator glycemic control in patients with: | [...] [facility] | [address] | [place] [address] | | | SERVICES, SPECIAL | PARK [...] | | | LABORATORY | | | COLOM[place]AN | | | SERVICES, | | | [facility] | [address] [facility] [address] | [place] [address] | | | LYDIA RANGEL | CLARENCE [...] DEPT OF | [address] | [place], [place] | | | CARDIOLOGY | [address] [address] | [address] | | + + + + + documented in this encounter Visit Diagnoses + + | Diagnosis | + + | Preop examination - Primary Preoperative examination, unspecified | + + documented in this encounter
--- OUTSIDE RECORDS SUMMARY | ~2019-12-19 | XMS | Encounter Summary ---
Demographics + + + | Address | [address] | | | [place] [address] | + + + | Home Phone [...] [place], [place] | | | | | [address] | | + + + + + | Ellie Vang | ECON | Unknown | | + + + + + Care Team Providers + +------+ + | Care Heel Slugger Name | Role | Phone | + [...] + | 03/03/ | Documentati | [facility] | Lab, Gi Procedure | Medical Records | | 2019 | on | [address] | | Review | | | | [address] Mailcode: | | | | | | OC2L [facility] | | | | | | Health and Healing, | | | | | | [address] | | | | | | [place], [place] | | | | | | [address] | | | | | | [phone] | | | +--------+ + + + [...] [place] | | | | | | [address] | | | | | | [phone] | | | | | | | | +--------+---------+ + + + documented as of this encounter Visit Diagnoses Not on filedocumented in this encounter"
--- OUTSIDE RECORDS SUMMARY | ~2019-12-19 | XMS | Encounter Summary ---
Demographics + + + | Address | [address] | | | [place] [address] | + + + | Home Phone [...] [place], [place] | | | | | [address] | | + + + + + | Ellie Vang | ECON | Unknown | | + + + + + Care Team Providers + +------+ + | Care Flue Cleaner Name | Role | Phone | [...] | | 2014 | | Center at [facility] [address] | ACNP [address] | | | | | [address] | [address] [place], [place] | | | | | Mailcode: [place] | [address] | | | | | for Health and | | | | | | [place] [address] | | | | | | [place], [place] | | | | | | [address] | | | | | | [phone] | | | +--------+ + + + [...] [place] | | | | | | [address] | | | | | | [phone] | | | | | | | | +--------+---------+ + + + documented as of this encounter Visit Diagnoses Not on filedocumented in this encounter"
--- OUTSIDE RECORDS SUMMARY | ~2019-12-19 | XMS | Encounter Summary ---
Demographics + + + | Address | [address] | | | [place] [address] | + + + | Home Phone [...] [place], [place] | | | | | [address] | | + + + + + | Ellie Vang | ECON | Unknown | | + + + + + Care Team Providers + +------+ + | Care Manager Of Compliance Name | Role | Phone [...] Diabetes & | Morbid | Kathy M, TARIFF INSPECTOR | [address] | | | | Metabolism | obesity | [address] | Pavilion | | | | | (HCC) | [address], | Loop | | | | | Procedures | [address] | Physician's | | | | | CONSULT TO | [facility] [place] | Pavilion | | | | | ENDO | [address] | Physician's | | | | | [address] | Phone: | Pavilion | | | | | [address] | [phone] | [place], [place] | | | | | | Fax: | [address] | | | | | | [phone] | Phone: | | | | | | | [phone] | | | | | | | Fax: | | | | | | | [phone] | +--------+--------+ + + + + Encounter [...] | | | Center at [facility] | [place], [place] | ([facility]) (Primary Dx); | | | | [address] | [address] | Type 2 diabetes | | | | [address] | [phone] | mellitus ([facility]); [facility] | | | | Physician's Pavilion | | (obstructive sleep | | | | Physician's | | apnea); Morbid | | | | Pavilion [place], | | obesity ([facility]); | | | | [place] [address] | | Edema; GERD | | | | [phone] | | (gastroesophageal | | | | [...] Goodrich DO Referring physician: Kathy Feldman, KALYAN [address] [place] [address] HPI: Dylan is a 38 y.o. female [...] 9 CREATININE PLASMA (LAB) 0.71 EGFR - GREEK >60 EGFR NON -GREEK >60 GLUCOSE, PLASMA (LAB) 113 (H) CALCIUM, [...] | | 2019 | Visit | | [address] | | | | | | [place], [place] | | | | | | [address] | | | | | | [phone] | | | | | | | [...] | | | PDT | type 2) ([facility]) | results section. | + +--------+ + + + | HI COLLECTION | Routin | 04/14/2013 | DM [...] + | KALEYORIN Gil LANEYKAMILLA | [address] [facility] [address] | [place], [place] | | | JUSTINE DAWN OF JAKY | [address] | [address] | | | TESTS | | | [...]
--- OUTSIDE RECORDS SUMMARY | ~2019-12-19 | XMS | Encounter Summary ---
Demographics + + + | Address | [address] | | | [place] [address] | + + + | Home Phone [...] [place], [place] | | | | | [address] | | + + + + + | Ellie Vang | ECON | Unknown | | + + + + + Care Team Providers + +------+ + | Care Mold Mover Name | Role | Phone | [...] [address] | | | | | | [place], [place] | | | | | | [address] | | | | | | [phone] | | | | | | | | +--------+---------+ + + + documented as of this encounter Visit Diagnoses Not on filedocumented in this encounter"
--- OUTSIDE RECORDS SUMMARY | ~2019-12-19 | XMS | Encounter Summary ---
Demographics + + + | Address | [address] | | | [place] [address] | + + + | Home Phone [...] + | Organization | [facility] | | [...] Team Providers + +------+ + | Care Firer Glost Kiln Name | Role | Phone | + +------+ + PCP | Unavailable | + +------+ + Encounter Details +--------+ + + + + | Date | Type | Department | Care Team | Description | +--------+ + + + + | 11/04/ | Orders Only | [facility] | Conversion | | | 2017 | | NEPHROLOGY JESUS | Transaction, | | | | | [address] | Provider Unknown | | | | | [address] [address] | | | | | | [address] | (Fax) | | | | | [phone] | | | +--------+ + + + [...] RICHEY | | | | | | [place] [address] | | | | | | [phone] | | | | | | | [...]
--- OUTSIDE RECORDS SUMMARY | ~2019-12-19 | XMS | Encounter Summary ---
Demographics + + + | Address | [address] | | | [place] [address] | + + + | Home Phone [...] [place], [place] | | | | | [address] | | + + + + + | Ellie Vagn | ECON | Unknown | | + + + + + Care Team Providers + +------+ + | Care Awning Craftsman Name | Role | Phone | [...] Center at [facility] [address] | MD [address] [facility] | | | | | [address] | Ryan Lesly | | | | | Mailcode: [place] | [place], [place] | | | | | [facility] and | [address] | | | | | [facility] 2 | [phone] | | | | | [place], [place] | | | | | | [address] | | | | | | [phone] | | | +--------+ + + + [...] Flannery | | | | | | [place] | | | | | | [address] | | | | | | [phone] | | | | | | | | +--------+---------+ + + + documented as of this encounter Visit Diagnoses Not on filedocumented in this encounter"
--- OUTSIDE RECORDS SUMMARY | ~2019-12-19 | XMS | Encounter Summary ---
Demographics + + + | Address | [address] | | | [place] [address] | + + + | Home Phone [...] [place], [place] | | | | | [address] | | + + + + + | Ellie Vang | ECON | Unknown | | + + + + + Care Team Providers + +------+ + | Care Product Control And Logistics Analyst Name | Role | Phone | [...] check | | 2020 | Visit | [place] at [facility] [address] | MD Jones [address] | (Primary Dx) | | | | [address] | [facility] | | | | | Mailcode: Center | [place], [place] | | | | | [facility] and | [address] | | | | | [place] [address] | [phone] | | | | | [place], [place] | | | | | | [address] | | | | | | [phone] | | | +--------+---------+ + + + [...] recommend you go to the ED in [place] for workup of pulmonary embolism. I will [...] check. Of note, she was admitted to [facility] 09/02/2019 - 09/04/2019 for a [...] Recommended patient present to the ED in [place] for workup of pulmonary embolism Will call [...] ed by Kyrie Warren. JONES WOO MD [facility] [address] Mailcode: [place] [address] documented in this encounter Plan of Treatment +--------+---------+ + + + | Date | Type | Specialty | Care Team | Description | +--------+---------+ + + + | 03/15/ | Office | Cardiology | Randell Franks, | | | 2019 | Visit | | [address] | | | | | | [place], [place] | | | | | | [address] | | | | | | [phone] | | | | | | | | +--------+---------+ + + + documented as of this encounter Visit Diagnoses + + | Diagnosis | + + | Postop check - Primary Follow-up examination, following unspecified surgery | + + documented in this encounter
--- OUTSIDE RECORDS SUMMARY | ~2019-12-19 | XMS | Encounter Summary ---
Demographics + + + | Address | [address] | | | [place] [address] | + + + | Home Phone [...] [place], [place] | | | | | [address] | | + + + + + | Ellie Vang | ECON | Unknown | | + + + + + Care Team Providers + +------+ + | Care Brake Shoe Rebuilder Name | Role | Phone | + [...] (PHENTERMINE 37.5 mg | | | | [place] at | [place], [place] | ); Refill Request | | | | [place] [address] | [address] | | | | | [facility] | [phone] | | | | | [facility] | | | | | | [place], [place] | | | | | | [address] | | | | | | [phone] | | | +--------+ + + + [...] Flann[address] | | | | | | [place], [place] | | | | | | [address] | | | | | | [phone] | | | | | | | | +--------+---------+ + + + documented as of this encounter Visit Diagnoses Not on filedocumented in this encounter"
--- OUTSIDE RECORDS SUMMARY | ~2019-12-19 | XMS | Encounter Summary ---
Demographics + + + | Address | [address] | | | [place] [address] | + + + | Home Phone [...] [place], [place] | | | | | [address] | | + + + + + | Ellie Vang | ECON | Unknown | | + + + + + Care Team Providers + +------+ + | Care Pipe Crew Foreman Name | Role | Phone | [...] | 2015 | | [facility]ive at [facility] | MD [address] | (phentermine 37.5 mg | | | | [address] | [place], [place] | ) | | | | Mailcode: [facility] | [address] | | | | | [facility] | [phone] | | | | | and [place], | | | | | | [address] | | | | | | [place], [place] | | | | | | [address] | | | | | | [phone] | | | +--------+--------+ + + + [...] Flannery | | | | | | [place], [place] | | | | | | [address] | | | | | | [phone] | | | | | | | | +--------+---------+ + + + documented as of this encounter Visit Diagnoses Not on filedocumented in this encounter"
--- OUTSIDE RECORDS SUMMARY | ~2019-12-19 | XMS | Encounter Summary ---
Demographics + + + | Address | [address] | | | [place] [address] | + + + | Home Phone [...] [place], [place] | | | | | [address] | | + + + + + | Ellie Vang | ECON | Unknown | | + + + + + Care Team Providers + +------+ + | Care Teamcenter Solution Architect Name | Role | Phone [...] | | | | | bypass | [place], | [facility], | | | | | Nausea and | [place] | 10th Floor | | | | | vomiting, | [address] | [place], [place] | | | | | intractabili | Phone: | [phone] | | | | | ty of | | Phone: | | | | | vomiting not | Fax: | [phone] | | | | | specified, | [phone] | Fax: | | | | | unspecified | | [phone] | | | | | vomiting | [...] | | | | | | CONTRAST ND | | | | | | | CT SCAN OF | | | | | | | ABDOMEN | | | | | | | CONTRAST ND | | | | | | [...] | | | | | bypass | [place], | Mailcode: | | | | | Nausea and | [place] | [facility] | | | | | vomiting, | [address] | for Health | | | | | intractabili | Phone: | and Healing, | | | | | ty of | [phone] | Building [address], | | | | | vomiting not | Fax: | 5th Floor | | | | | specified, | [phone] | [place], [place] | | | | | unspecified | | [address] | | | | | vomiting | | Phone: | | | | | type | | [phone] | | | | | Diarrhea, | [...] Closed | | Gastroenterol | Diagnoses | [facility], | Gas Endo | | | | ogy | History of | Keren W, | [facility] [address] | | | | | Nilesh-en-Y | AGACNP [address] | | | | | gastric | [address] | Mailcode: | | | | | bypass | [place], | [address] | | | | | Nausea and | [place] | for Health | | | | | vomiting, | [address] | and Healing, | | | | | intractabili | Phone: | Building 2 | | | | | ty of | | [place], [place] | | | | | vomiting not | Fax: | [address] | | | | | specified, | [phone] | Phone: | | | | | unspecified | | [phone] | | | | | vomiting | | Fax: | | | | | type | | [phone] | | | | | Diarrhea, | [...] | | | | | | ND UPPER GI | | | | | [...] | [facility] | | | with CURRICULUM DIRECTOR | | hypertension | [address] | [address] [address] | | | | | Right | [address] | [address] | | | | | heart | [facility] [place] | Mailcode: | | | | | failure | [address] | [place] for | | | | | ([facility]) Type | Phone: | Health and | | | | | 2 diabetes | [phone] | Healing, | | | | | mellitus | Fax: | [address] | | | | | without | [phone] | [place], [place] | | | | | complication | | [address] | | | | | , with | | Phone: | | | | | long-term | | | | | | | current use | | Fax: | | | | | of insulin | | [phone] | | | | | ([facility] | | [address] | Ave [place], [place] | (Primary Dx); Nausea | | | | Mailcode: Center | [address] | and vomiting, | | | | for Health and | | intractability of | | | | Healing, Building [address] | | vomiting not | | | | [place], [place] | | specified, | | | | [address] | | unspecified vomiting | | | | [phone] | | type; Diarrhea, | | | [...] getting fluids at a local clinic in [place] -I will contact you if further testing is indicated -follow up with once of our surgeons once testing is complete -get some protein de la o--isopure or premier protein de la o. documented in this encounter Progress Notes Melissa Garay RN - 03/01/2019 1:50 PM PDTSpoke with patient's PCP office [phone] and notified them that Infusion unit at [facility] (fax [phone]) requires a provider with privileges there to sign the IV infusion orders. Since Dr. Cardenas is out on maternity leave, SOFI Ulrich will check with provider covering. Infusion order and chart not e faxed to PCP at [phone]. Patient notified. harli Zayas - 03/01/2019 1:50 [...] vagina Allergic rhinitis Anemia Anxiety Bipolar disorder ([facility]) Chronic wound infection of abdomen [...] limb 150 cm or less 8 [facility] Social History Socioeconomic History Marital status: [...] History Narrative Updated 11/09/15 She lives in [place] with her mother and her sister (also her caregiver) lives in an apa rtment/duplex below. She has 2 grandchildren (age 4 and 7) who live with her daughter and son-in-law Her boyfriend lives in [place] HFpEF, DM2, HTN, Sleep Apnea (unable to [...] program here and refer her to our career specialist who also has expertise in physical [...] buccal film, , Disp: , Rfl: CALCIUM CRB&GEA-R5-BLP75-GENIS ORAL, Take 2 tablets by mouth two [...] oral tablet, Take 1 tablet by mo [facility] once daily., Disp: 90 tablet, [...] be administered closer to her home in [place]. LR 1-2 L 3 times weekly, until [...] to plan and will call and/or send Leadspace message if any issues. Start time 1422, end time 1455. I spent a total of 33 minutes face to face with this patie nt. Over 50% of visit was in counseling. ALBINA Perrin Bariatric Surgery Nurse Practitioner [facility] | [address] | [place], [place] | [address] | documented in th is encounter Plan [...] [place] | | | | | | [address] | | | | | | [phone] | | | | | | | [...] + + | [facility] | [address] | [place] [address] | | | SERVICES, CORE | PARK [...] B: | | | | | | Picseanuplab.com/CSPerformed | | | | | | by [facility],[address] | | | | | | [place] | | | | | | [address] | | | | | | [phone].Picseanuplab. | | | | | | Ismael [...] [facility] | [address] | [place], [place] | | | UNIV PTH - INTFC | | [address] | | + + + + + [...] | | | SERUM | Natalia Parson [facility] | | PTH - INTFC | | | | [address] | | | | | | [phone].Sravnikupilab. | | | | | | comIsmael [...] B: | | | | | | Sravnikupilab.BURLESQUICEOUS/CS | | | | + + + + + + + + | Specimen | + + | Blood - Blood | | (substance) | + + + + + + + | Performing | Address | City/State/Zipcode | Phone Number | | Organization | | | | + + + + + | [facility] | [address] | [place], [place] | | | UNIV PTH - INTFC | | [address] | | + + + + + [...] + + | [facility] | [address] | [place] [address] | | | CLAIRE, LYDIA | PARK [...] + + | [facility] | [address] | [place] [address] | | | LYDIA RANGEL | CLARENCE [...] | | | | | determined by [employer] | | | | | | Laboratories. See | | | | | | Compliance Statement B: | | | | | | [employer].BURLESQUICEOUS/CSPerformed | | | | | | by [employer],[address] | | | | | | Natalia Parson, [facility] | | | | | | [address] | | | | | | [phone].Sravnikupilab. | | | | | | com, [...] [facility] | [address] | [place], [place] | | | UNIV PTH - INTFC | | [address] | | + + + + + [...] INTFC | | | | determined by [employer] | | | | | | [employer]. See | | | | | | Compliance Statement B: | | | | | | [employer].BURLESQUICEOUS/CSPerformed | | | | | | by [employer],[address] | | | | | | [place], [place] | | | | | | [address] | | | | | | [phone].[employer]. | | | | | | river[facility] hospitalIsmael MD, | | | | | [...] [facility] | [address] | [place], [place] | | | UNIV PTH - INTFC | | [address] | | + + + + + [...] + + | [facility] | [address] | [place] [address] | | | SERVICES, CORE | CLARENCE [...] B: | | | | | | [employer].BURLESQUICEOUS/CSPerformed | | | | | | by [employer],[address] | | | | | | [facility]ia [facility],[place] | | | | | | [address] | | | | | | [phone].[employer]. | | | | | | com, [...] [facility] | [address] | [place], [place] | | | UNIV PTH - INTFC | | [address] | | + + + + + [...] LABORATORY | [address] | [place] [address] | | | SERVICES, CORE | [address] | | | + + + + + INR (03/01/2019 2:41 PM PDT) + +-------+ + + + | Component | Value | Ref Range | Performed | Pathologist | | | | | At | Signature | + +-------+ + + + | INR | 1.05 | 0.90 - 1.20 INR | [facility] | | | | | | LABORATORY [...] [facility] | [address] | [place] [address] | | | SERVICES, CORE | PARK [...] | + + + + + | [facility] | [address] | [place] [address] | | | SERVICES, SPECIAL | PARK [...] + + | [facility] | [address] | [place] [address] | | | LDYIA RANGEL | CLARENCE [...] | | | | | determined by [facility] | | | | | | Laboratories. See | | | | | | Compliance Statement B: | | | | | | [employer].BURLESQUICEOUS/CSPerformed | | | | | | by [employer],[address] | | | | | | Natalia Parson [facility] [place] | | | | | | [address] | | | | | | [phone].[employer]. | | | | | | com, [...] [facility] | [address] | [place], [place] | | | UNIV PTH - INTFC | | [address] | | + + + + + [...] >60 mL/min | [facility] | | | -[facility] | | | LABORATORY | | | [...] NKECHI ROBERTS | [address] | [place] [address] | | | SERVICES, CORE [...]
--- OUTSIDE RECORDS SUMMARY | ~2019-12-19 | XMS | Encounter Summary ---
Demographics + + + | Address | [address] | | | [place] [address] | + + + | Home Phone [...] | Organization | [facility] | | [...] Providers + +------+ + | Care Screen Tender Name | Role | Phone | [...] | | [address] | [facility]YL[facility] [address] | | | | | [place], [place] | [place] [address] | | | | | [address] | [phone] | | | | | [phone] | | | +--------+ + + + [...] [address] | | | | | | [place] [address] | | | | | | [phone] | | | | | | | [...] | | to assess segmental wall motion, [place] visually estimates LVEF | | | >70%. [...] assess | | | segmental wall motion, [place] visually estimates LVEF >70%. RV | | [...] not well visualized. MEASUREMENTS | | | Log Peeler: JESSICA Authenticated by: Edson Cruz DO | [...] to assess | | segmental wall motion, [place] visually estimates LVEF >70%. RV grossly NML. [...] | IVC was not well visualized. MEASUREMENTS Log Peeler: HONEYuthenticated by: | | Edson Jones Date/Time: 01-02-2016 19:12:36 IMPRESSION: 1. See Dictation. | | TDS. Sinus. 2. Cardiac chamber dimensions grossly NML. LV systolic and diastolic | | functions grossly NML, unable to assess segmental wall motion, [place] visually estimates | | LVEF >70%. RV [...] | |MEASUREMENTS | | | | | |Log Peeler: JESSICA | |Authenticated by: Edson Cruz DO | |Report Date/Time: 01-02-2016 19:12:36 | | | |IMPRESSION: | |1. See Dictation. TDS. Sinus. 2. Cardiac chamber dimensions grossly NML. LV systolic and diastolic functions grossly NML, unable to assess segmental wall motion, [place] visually es timates LVEF >70%. RV grossly | |NML. 3. Aortic valve sclerotic, no /AI | | observed. Mitral and Tricuspid valves grossly NML, Pulmonic valve not seen well. Trace T R. 4. No Pericardial effusion. 5. IVC not seen well. | + + documented in this encounter Visit Diagnoses Not on filedocumented in this encounter"
--- OUTSIDE RECORDS SUMMARY | ~2019-12-19 | XMS | Encounter Summary ---
Demographics + + + | Address | [address] | | | [place] [address] | + + + | Home Phone [...] [place], [place] | | | | | [address] | | + + + + + | Ellie Vang | ECON | Unknown | | + + + + + Care Team Providers + +------+ + | Care Emergency Management Consultant Name | Role | Phone [...] | | 2020 | | Center at [facility] [address] | MD [address] | | | | | [address] | [address] | | | | | Mailcode: Center | [place], [place] | | | | | [facility] and | [address] | | | | | [facility] 2 | [phone] | | | | | [place], [place] | | | | | | [address] | | | | | | [phone] | | | +--------+ + + + [...] [place] | | | | | | [address] | | | | | | [phone] | | | | | | | | +--------+---------+ + + + documented as of this encounter Visit Diagnoses Not on filedocumented in this encounter"
--- OUTSIDE RECORDS SUMMARY | ~2019-12-19 | XMS | Encounter Summary ---
Demographics + + + | Address | [address] | | | [place] [address] | + + + | Home Phone [...] [place], [place] | | | | | [address] | | + + + + + | Ellie Vang | ECON | Unknown | | + + + + + Care Team Providers + +------+ + | Care Parts Counter Associate Name | Role | Phone | [...] | | | | | | | [facility] | | | | | | | Health and | | | | | | | Healing, | | | | | | | [address] | | | | | | | [place], [place] | | | | | | | [address] | | | | | | | Phone: | | | | | | | [phone] | | | | | | | Fax: | | | | | | | [phone] | +--------+--------+ + + + + Encounter Details +--------+---------+ + + + | Date | Type | Department | Care Team | Description | +--------+---------+ + + + | 06/16/ | Office | Digestive Health | Olga Lidia Montanez, | Morbid obesity (HCC) | | 2012 | Visit | Center at [facility] [address] | [address] [facility] | (Primary Dx); Type | | | | [facility] | [facility] [address] | 2 diabetes mellitus | | | | [facility] and | [place], [place] | (HCC) | | | | [place] [address] | [address] | | | | | [place], [place] | | | | | | [address] | | | | | | [phone] | | | +--------+---------+ + + + [...] of Visit: 10:06 to 10:32 (26 minutes awiy-bc-ljoh with patient & friend) SUBJECTIVE: Is surprised she has gained weight; is disappointed. Still following her usual meal plan. H as d/c'd diet soda. Still struggling w/ eating out of boredom - choosing 100 kcal snacks but having ~3 of them at a time. Not as much emotional eating lately. Has been keeping food log s (on paper) - avg 5836-2633 kcal/d. Trying to increase activity. B: Atkins [...] provided. Olga L[address] Montane[address] RD, [place] Pager [phone] documented in this en counter Plan of Treatment +--------+---------+ + + + | Date | Type | Specialty | Care Team | Description | +--------+---------+ + + + | 03/15/ | Office | Cardiology | Randell Franks, | | | 2019 | Visit | | MD [address] | | | | | | [place], [place] | | | | | | [address] | | | | | | [phone] | | | | | | | | +--------+---------+ + + + documented as of this encounter Procedures + +--------+ + + + | Procedure Name | Priori | Date/Time | Associated Diagnosis | Comments | | | ty | | | | + +--------+ + + + | [place] MNT RE-ASSESSMNT | Routin | 06/16/2013 | [...]
--- OUTSIDE RECORDS SUMMARY | ~2019-12-19 | XMS | Encounter Summary ---
Demographics + + + | Address | [address] | | | [place] [address] | + + + | Home Phone [...] [place], [place] | | | | | [address] | | + + + + + | Ellie Vang | ECON | Unknown | | + + + + + Care Team Providers + +------+ + | Care Sports Equipment Repairer Name | Role | Phone [...] | | 2012 | | [facility] | [address] [place] | ventral hernia; | | | | Rd [facility] | [facility] [address] | possible bowel | | | | Hospital Admitting | [place], [place] | resection; | | | | Desk Located on the | [address] | | | | | 9th floor | [phone] | | | | | [place], [place] | | | | | | [address] | | | +--------+---------+ + + + [...] yuriy tral hernia. She was transferred from [facility] for surgical evaluation of possible incarcer ated [...] Cipro. POD 5 she was discharged ho [place], tolerating a diabetic diet. Having bowel function. [...] yuriy tral hernia. She was transferred from [facility] for surgical evaluation of possible incarcer ated [...] Cipro. POD 5 she was discharged ho ga, tolerating a diabetic diet. Having bowel function. [...] keeping you from eating and drinking, Call [phone]. It is important to stay hydrated! If [...] narcotic that contain Tylenol (acetaminophen) Example: [place], Lortab, Vicodin, hydrocodone/APAP, Percocet, Tylenol #3 PAIN MEDICATIONS are ONLY REFILLED during CLINIC APPOINTMENTS. Please call [phone] to schedule an appointment. Your Follow-Up Plan Follow up with ROBIN MEJIA in 2 weeks. Contact information: [address] [facility] [address] Vitals on discharge: Ht 154.9 cm (5' [...] might be different f rom the original. [facility] DEPARTMENT OF SURGERY EMERGENCY GENERAL SURGERY Division [...] without erythema and no infecti on noted. [place] intact : good urine output and Patient [...] clinic - [place] [phone] pager number [place] [phone] [facility] [phone] Aminta Goodwin Md - 11/11/2012 7:40 AM PDT [facility] DEPARTMENT OF SURGERY EMERGENCY GENERAL SURGERY Division of Trauma and Critical Care Attending Physician: Andie Brian MD Progress Note Note Date: 11/11/2012 Admission Date: 11/06/2012 DYLAN ROMERO, [id number] Hospital Day #5 INTERVAL EVENTS none acute [...] mg, Rectal, DAILY PRN, Aminta Wilson MD edifvrzxel-auvspirbzntyy-bhjfafos (aka FIORICET) 50-325-40 mg 1 Tab, 1 [...] Jayne Ponce MD, 1 mg at 11/10/12801 rkyrtulyow-mahrwmuukgogo-zixtiwrc (aka FIORICET) 50-325-40 mg 1 Tab, 1 [...] in preservative free NaCl 0.9% 50 mL COVERING MACHINE OPERATOR infusion, , Intravenous, KIESHA NUOUS, Aracely Flores [...] diet -add bowel regimen Acute pain -HM COVERING MACHINE OPERATOR, tylenol -convert to oral pain [...] Fluids: LR 125ml/hr Feeding: NPO Analgesia: Dilaudid COVERING MACHINE OPERATOR Sedation: not indicated Thromboprophylaxis: enoxaparin [...] Ponce MD, 1 mg at 11/09/12 0855 lcfjavyzgt-snspzxmtqpjph-rsbtjaxv (aka FIORICET) 50-325-40 mg 1 Tab, 1 [...] in preservative free NaCl 0.9% 50 mL COVERING MACHINE OPERATOR infusion, , Intravenous, KIESHA NUOUS, Aracely Flores [...] drainage <30ml for 24hrs Acute pain -HM COVERING MACHINE OPERATOR, tylenol Diabetes: -insulin gtt not [...] Fluids: LR 125ml/hr Feeding: NPO Analgesia: Dilaudid COVERING MACHINE OPERATOR Sedation: not indicated Thromboprophylaxis: enoxaparin Head of bed: > 30 Ulcer prophylaxis: pepcid Glycemic control: adequate Activity/PT/OT: Ongoing Yogurt: ABX on Probiotics:yes AMINTA WILSON MD General Surgery, R1 aleb Walker S, N P - 11/08/2012 8:49 AM PDT [facility] DEPARTMENT OF SURGERY EMERGENCY GENERAL SURGERY Division of Trauma and Critical Care Attending Physician: Andie Brian MD Progress Note Note Date: 11/08/2012 Admission Date: 11/06/2012 DYLAN ROMERO, [id number] Hospital Day #2 INTERVAL EVENTS NO SUBJECTIVE Pain well controlled; has headache attributed to dilaudid COVERING MACHINE OPERATOR Tylenol did not help. Flatus: [...] trials today. -DC ruiz Acute pain -HM COVERING MACHINE OPERATOR, tylenol Diabetes: -insulin gtt not [...] Fluids: LR 125ml/hr Feeding: NPO Analgesia: Dilaudid COVERING MACHINE OPERATOR Sedation: not indicated Thromboprophylaxis: enoxaparin Head of bed: > 30 Ulcer prophylaxis: pepcid Glycemic control: adequate Activity/PT/OT: Ongoing Yogurt: ABX on Probiotics: No KALEB WALKER NP [facility] [address] [place] [facility] elvin Stephens MD - 11/07/2012 9:51 PM [...] 7.33* PCO2 49* PO2 113* HCO3 25 DPSGB1NXB 26 P2RQEBTC 98.3* J8NUEITLK -- FIO2 60 ABGEXCESS -0.9 Assessment, Medical Decision Making and Plan 1. Incarcerated hernia, now s/p repair and panniculectomy -Binder, pain control, minimize nausea and coughing PRN. -NG clamping trials today. 2. Acute pain -HM COVERING MACHINE OPERATOR, tylenol 3. Diabetes: -insulin gtt [...] Dione Grimes MD R-2, General Surgery Pager: [phone] [facility] [place] Department of Surgery Trauma ICU Team Pager (24hrs/day): [phone] I was present with the resident during the history and exam. I discussed the case with the resident and agree with the findings and plan as documented in the resident s note. KELVIN STEPHENS MD [facility] [address] [facility] [place] [address] [id number] Onur Graves MD - 11/07/2012 2:37 AM [...] in preservative free NaCl 0.9% 50 mL COVERING MACHINE OPERATOR infusion Intravenous CON TINUOUS Aracely [...] POD#1 s/p primary repair. 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 gate keeper and prn tylenol, continue prozac and zyprexa [...] F: probable remain NPO today A: dilaudid gate keeper, prn tylenol S: prn benzos as she is at home T: will start prophylactic lovenox today H: HOB >30 degrees U: pepcid G: insulin gtt ONUR ALLEN MD, PGY3 [place] [address] [facility] [id number] [place] [address] Onelia Shrestha MD - 11/06/2012 8:41 AM PDT [facility] DEPARTMENT OF SURGERY Division of Trauma and Critical Care Emergency General Surgery / Acute Care Surgery Attending Physician: Andie Brian MD Note Date: 11/06/2012 Admission Date: 11/06/2012 DYLAN ROMERO, [id number] Hospital Day #0 OVERNIGHT EVENTS: anxious SUBJECTIVE: [...] wwp LABS: reviewed and are available in [facility] (if new data) IMAGING: VASCULAR: [...] Flannery | | | | | | [place], [place] | | | | | | [address] | | | | | | [phone] | | | | | | | [...] Mae | | | | | | [place] | | | | + + + + + + + + | Specimen | + + | | + + + +---------+ + + | Performing | Address | City/State/Zipcode | Phone Number | | Organization | | | | + +---------+ + + | [facility] DEPARTMENT OF | | | | | [...] | 60 - 99 mg/dL | [facility] - | | | GLUCOSE, | [...] - [facility] | [address] | [place], [place] | | | [place] POINT OF CARE | [address] | [address] | | | TESTS | | | [...] + + + | [facility] | [address] | [place], [place] | | | JUSTINE DAWN OF [facility] | [address] | [address] | | | TESTS | | | [...] + + | [facility] | [address] | [place] [address] | | | SERVICES, CORE | CLARENCE [...] [facility] | [address] | [place] [address] | | | SERVICES, CORE | PARK [...] | [facility] | [address] | [place] [address] | | | SERVICES, CORE | PARK [...] | 60 - 99 mg/dL | [facility] - | | | GLUCOSE, | [...] AMES | [address] | [place], [place] | | | JUSTINE DAWN OF JAKY | [facility] | [address] | | | TESTS | | | [...] [facility] | [address] | [place], [place] | | | JUSTINE DAWN OF CARE | [address] | [address] | | | TESTS | | | [...] | 60 - 99 mg/dL | [facility] - | | | GLUCOSE, | [...] [facility] | [address] | [place], [place] | | | JUSTINE DAWN OF JAKY | [address] | [address] | | | TESTS | | | [...] AMES | [address] | [place], [place] | | | JUSTINE DAWN OF JAKY | [facility] | [address] | | | TESTS | | | [...] [facility] | [address] | [place], [place] | | | [place] POINT OF [facility] | [facility] | [address] | | | TESTS | | | [...] [facility] | [address] | [place] [address] | | | SERVICES, CORE | PARK [...] + | [facility] | [address] | [place] [address] | | | SERVICES, CORE | CLARENCE [...] [facility] | [address] | [place] [address] | | | LYDIA RANGEL | CLARENCE [...] [facility] | [address] | [place], [place] | | | [place] POINT OF CARE | [address] | [address] | | | TESTS | | | [...] AMES | [address] | [place], [place] | | | [place] POINT OF CARE | [address] | [address] | | | TESTS | | | [...] [facility] | [address] | [place], [place] | | | JUSTINE DAWN OF JAKY | [address] | [address] | | | TESTS | | | [...] [facility] | [address] | [place], [place] | | | JUSTINE DAWN OF CARE | [facility] | [address] | | | TESTS | | | [...] AMES | [address] | [place], [place] | | | JUSITNE DAWN OF JAKY | [facility] | [address] | | | TESTS | | | [...] + + | [facility] | [address] | [place] [address] | | | SERVICES, CORE | CLARENCE [...] HEALTHCARE LAB[facility]ORY | [address] | [place] [address] | | | LYDIA RANGEL | CLARENCE [...] [facility]ALTH[facility]ARE [facility] | [address] | [place] [address] | | | SERVICES, CORE | CLARENCE [...] AMES | [address] | [place], [place] | | | JUSTINE DAWN OF JAKY | [address] | [address] | | | TESTS | | | [...] [facility] | [address] | [place] | | | JUSTINE DAWN OF JAKY | [address] | [address] | | | TESTS | | | [...] NKECHI AMES | [address] | [place], [place] | | | JUSTINE DAWN OF CARE | [address] | [address] | | | TESTS | | | [...] | | | Final CULTURE | | [place] | | | | RESULT:>100,000 cfu/ml | [...] + | [facility] | [address] | [place] [address] | | | [place] | | | [...] | [address] | [place] [address] | | | SERVICES, CORE | PARK [...] [facility] | [address] | [place] [address] | | | CLAIRE, LYDIA | CLARENCE [...] AMES | [address] | [place], [place] | | | L[place]PEZ MULLENS OF [facility] | [address] | [address] | | | TESTS | | | [...] [facility] | [address] | [place] [address] | | | SERVICES, CORE | CLARENCE [...] [facility] | [address] | [place] [address] | | | SERVICES, CORE | CLARENCE [...] [facility] | [address] | [place] [address] | | | SERVICES, CORE | PARK [...] [facility] | [address] | [place], [place] | | | JUSTINE DAWN OF JAKY | [facility] | [address] | | | TESTS | | | [...] AMES | [address] | [place], [place] | | | JUSTINE DAWN OF CARE | [address] | [address] | | | TESTS | | | [...] [facility] | [address] | [place], [place] | | | JUSTINE DAWN OF CARE | [address] | [address] | | | TESTS | | | [...] [facility] | [address] | [place] [address] | | | SERVICES, CORE | PARK [...] [facility] | [address] | [place] [address] | | | SERVICES, CORE | PARK [...] [facility] | [address] | [place] [address] | | | SERVICES, CORE | CLARENCE [...] [facility] | [address] | [place], [place] | | | L[place] POINT OF CARE | [address] | [address] | | | TESTS | | | [...] [facility] | [address] | [place], [place] | | | JUSTINE DAWN OF CARE | [address] | [address] | | | TESTS | | | [...] AMES | [address] | [place], [place] | | | JUSTINE DAWN OF JAKY | [address] | [address] | | | TESTS | | | [...] | + + + + + | [facility] | [address] | [place] [address] | | | SERVICES, CORE | PARK [...] [facility] | [address] | [place] [address] | | | SERVICES, CORE | CLARENCE [...] | + + + + + | [facility] | [address] | [place] [address] | | | SERVICES, CORE | [address] | | | + + + + + X-RAY PORTABLE CHEST 1 VIEW (11/06/2012 4:46 PM PDT) + + + + + + | Component | Value | Ref Range | Performed | Pathologist | | | | | At | Signature | + + + + + + | X-RAY | STUDY: NV CHEST 1 VIEW | | | | | PORTABLE | 11/06/12 16:46:00 | | | | | CHEST 1 | INDICATION: Right upper | | | | | VIEW | lobe opacity. | | | | | | COMPARISON: Earlier same | | | | | | day a STUDY: NV CHEST 1 | | | | | [...] + + + | X-RAY | STUDY: NV CHEST 1 VIEW | | | | [...] + | [facility] | [address] | [place] [address] | | | LYDIA RANGEL | CLARENCE [...] [facility] | [address] | [place] [address] | | | SERVICES, CORE | CLARENCE [...] [facility]ALTH[facility]ARE [facility] | [address] | [place] [address] | | | SERVICES, CORE | CLARENCE [...] | 60 - 99 mg/dL | [facility] - | | | GLUCOSE, | [...] AMES | [address] | [place], [place] | | | JUSTINE DAWN OF JAKY | [address] | [address] | | | TESTS | | | [...] AMES | [address] | [place], [place] | | | [place] POINT OF CARE | [address] | [address] | | | TESTS | | | [...] [facility] | [address] | [place], [place] | | | [place] POINT OF CARE | [address] | [address] | | | TESTS | | | [...] [facility] | [address] | [place], [place] | | | JUSTIEN DAWN OF CARE | [address] | [address] | | | TESTS | | | [...] AMES | [address] | [place], [place] | | | [place] POINT OF CARE | [address] | [address] | | | TESTS | | | [...] [facility] | [address] | [place], [place] | | | JUSTINE DAWN OF CARE | [address] | [address] | | | TESTS | | | [...] [facility] | [address] | [place], [place] | | | JUSTINE DAWN OF CARE | [address] | [address] | | | TESTS | | | [...] AMES | [address] | [place], [place] | | | [place] POINT OF CARE | [address] | [address] | | | TESTS | | | [...] + + | [facility] | [address] | [place], [place] | | | JUSTINE DAWN OF CARE | [address] | [address] | | | TESTS | | | [...] [facility] | [address] | [place], [place] | | | [place] POINT OF CARE | [address] | [address] | | | TESTS | | | [...] AMES | [address] | [place], [place] | | | JUSTINE DAWN OF JAKY | [address] | [address] | | | TESTS | | | [...] [facility] | [address] | [place] [address] | | | CLAIRE | CLARENCE BONNER [...] | 60 - 99 mg/dL | [facility] - | | | GLUCOSE, | [...] [facility] | [address] | [place], [place] | | | L[place] POINT OF CARE | [address] | [address] | | | TESTS | | | [...] [facility] | [address] | [place] [address] | | | SERVICES, | [address] [...] [facility] | [address] | [place] [address] | | | SERVICES, | [address] [...] | + + + + + | [facility] | [address] | [place] [address] | | | SERVICES, CORE | CLARENCE [...] [facility] | [address] | [place] [address] | | | SERVICES, CORE | PARK [...] [facility] | [address] | [place] [address] | | | SERVICES, CORE | PARK [...] [facility] | [address] | [place] [address] | | | SERVICES, CORE | PARK [...] [facility] | [address] | [place] [address] | | | SERVICES, CORE | PARK [...] view image for the detailed interpretation from [employer] results. | CARDIOLOGY | + + + + + + + + | Performing | Address | City/State/Zipcode | Phone Number | | Organization | | | | + + + + + | [facility] | [address] | [place], [place] | | | CARDIOLOGY | [facility] | [address] | | + + + + + [...] [facility] | [address] | [place] [address] | | | SERVICES, CORE | CLARENCE [...] [facility] | [address] | [place] [address] | | | SERVICES, CORE | [address] | | | + + + + + documented in this encounter Visit Diagnoses + + | Diagnosis | + + | Incarcerated ventral hernia Ventral hernia, unspecified, with obstruction | + + documented in this encounter
--- OUTSIDE RECORDS SUMMARY | ~2019-12-19 | XMS | Encounter Summary ---
Demographics + + + | Address | [address] | | | [place] [address] | + + + | Home Phone [...] [place], [place] | | | | | [address] | | + + + + + | Elile Vang | ECON | Unknown | | + + + + + Care Team Providers + +------+ + | Care Broke Handler Name | Role | Phone | [...] | | | | | | [place], [place] | | | | | | [address] | | | | | | [phone] | | | +--------+ + + + [...] Flannery | | | | | | [place], [place] | | | | | | [address] | | | | | | [phone] | | | | | | | | +--------+---------+ + + + documented as of this encounter Visit Diagnoses Not on filedocumented in this encounter"
--- OUTSIDE RECORDS SUMMARY | ~2019-12-19 | XMS | Encounter Summary ---
Demographics + + + | Address | [address] | | | [place] [address] | + + + | Home Phone [...] [place], [place] | | | | | [address] | | + + + + + | Ellie Vang | ECON | Unknown | | + + + + + Care Team Providers + +------+ + | Care Cane Furniture Maker Name | Role | Phone [...] | Encounter | [address] | [address] [facility] | | | | | [place], [place] | [place] [address] | | | 08/23/ | | [address] | [phone] | | | 2019 | | [phone] | | | | | | | Nay Joe, | | | | | | [address] | | | | | | [address] | | | | | | [place], [place] | | | | | | [address] | | | | | | [phone] | | | | | | | | | | | | Jones Tiwari, | | | | | | [address] | | | | | | [address] | | | | | | [place], [place] | | | | | | [address] | | | | | | [phone] | | | | | | | [...] Author: Kelin Hairston MD Attending Physician: Jones iTwari MD PCP: Kenyatta Hylton MD Admission Date: [...] the gallo. 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 She di d have difficulty [...] She will follow up at the [facility] with Dr. Tiwari in [...] by mouth once daily at bedtime. CALCIUM [id number]-GENIS ORAL Take 2 tablets by mouth two [...] daily. ASK your doctor about these medications LOSS MITIGATION SPECIALIST THYROID 30 mg Tab tab Generic drug: [...] the prescribed narcotic-opioid (e.g. oxycodone, hydrocodone, Vicodin, [place], Percocet, Dilaudid) as needed. However, Vicodin/[place] and Percocet contain acetam inophen in the [...] Narcotic-opioid pain medications (e.g. oxycodone, hydrocodone, Vicodin, [place], Percocet, Di laudid) can be constipating, therefore you should take a stool softener on the same day as s tarting your narcotic pain medicine. Options include: Milk of Magnesia: 2 Tablespoons Twice daily Colace (=Docusate): 1 pill Twice daily Miralax: 1 Tablespoon (17 grams) daily (check bottle for mixing instructions) While these are some recommendations, any eywf-mcg-avfvomh stool softener should work, and generics are fine to use. Increase your fluids, especially your intake of water Increase your activity. Walk frequently. ANTICOAGULATION: We recommend you make an appointment to be seen in your local anticoagulation clinic on [facility] 08/25/19 to recheck your INR and [...] and plan of care. JONES TIWARI MD [facility] [address] [place] [address] documented in this encounter Discharge [...] hours by calling the surgery office at [phone]. After hours, weekends and holidays, you may call the hospital seaming machine operator at [phone] and have the auto suspension and steering mechanic Green Team for general surgery paged. Discharge [...] the gallo. 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 She did have dif ficulty [...] dition. She will follow up at the [facility] with Dr. Tiwari in weeks. She [...] the prescribed narcotic-opioid (e.g. oxycodone, hydrocodone, Vicodin, [place], Percocet, Dilaudid) as needed. However, Vicodin/[place] and Percocet contain acetam inophen in the [...] Narcotic-opioid pain medications (e.g. oxycodone, hydrocodone, Vicodin, [place], Percocet, Di laudid) can be constipating, therefore you should take a stool softener on the same day as s tarting your narcotic pain medicine. Options include: Milk of Magnesia: 2 Tablespoons Twice daily Colace (=Docusate): 1 pill Twice daily Miralax: 1 Tablespoon (17 grams) daily (check bottle for mixing instructions) While these are some recommendations, any sczn-shy-ppgavap stool softener should work, and generics are fine to use. Increase your fluids, especially your intake of water Increase your activity. Walk frequently. ANTICOAGULATION: We recommend you make an appointment to be seen in your local anticoagulation clinic on Thu08/25/19 to recheck your INR and for ongoing management of your warfarin. FOLLOW-UP: Please call Dr. Tiwari's office ([phone]) to schedule a follow-up appointment for 2-3 [...] | | 0 | | | | CRB&UMD-[id number]-GEN | mouth two times | | | [...] + + +---------+ + + | thyroid (LOSS MITIGATION SPECIALIST | Take 30 mg by mouth | [...] assist PRN. Anticipate discharge michelle Chandler MD [facility], PGY-1 [place] [employer] Specialist Pager: [phone] signed by Jones Tiwari MD at 08/22/2019 [...] dc in 2-3 days Gadiel Chandler MD [facility], PGY-1 [employer] Specialist Pager: [phone] Associated attestation - Jones Tiwari MD - 08/21/2019 9:57 AM PSTI performed a hist ory and physical examination of the patient and discussed her management with the resident. I reviewed the resident s note and agree with the documented findings and plan of care. JONES TIWARI MD [facility] [address] [place] [address] Valencia Zamora MD - 08/20/2019 8:42 AM [...] well. - ruiz out today - dc FURNACE ROOM SUPERVISOR - ppx lovenox today - therapeutic lovenox [...] -Multimodal pain control Joselyn Everett MD [facility] General Surgery PGY1 [id number] Gadiel Armstrong MD - 08/19/2019 12:34 PM [...] hernia repair with mesh Gadiel Chandler MD [facility], PGY-1 [employer] Specialist Pager: [phone] documented in this encounter Plan of Treatment +--------+---------+ + + + | Date | Type | Specialty | Care Team | Description | +--------+---------+ + + + | 03/15/ | Office | Cardiology | Aly Franks, | | 2019 | Visit | | [address] | | | | | | [place], [place] | | | | | | [address] | | | | | | [phone] | | | | | | | [...] [facility] | [address] | [place] [address] | | | SERVICES, CORE | PARK [...] [facility] | [address] | [place] [address] | | | SERVICES, CORE | PARK [...] [facility] | [address] | [place] [address] | | | SERVICES, CORE | CLARENCE [...] (H) | 70 - 99 mg/dL | [facility] - | | | GLUCOSE, | | [...] | | [facility] | [address] | [address] | | | TESTS | | | [...] | | [facility] | [address] | [address] | | | TESTS | | | [...] [facility] | [address] | [place] [address] | | | SERVICES, | [address] [...] [facility] | [address] | [place] [address] | | | CLAIRE, | [address] [...] - [facility] | [address] | [place], [place] | | | [facility] | [address] | [address] | | | TESTS | | | [...] | [facility] | | | GRAVITY | Echo performed by | | LABORATORY | | [...] [facility] | [address] | [place] [address] | | | SERVICES, CORE | PARK [...] | + + + + + | [facility] | [address] | [place] [address] | | | SERVICES, | [address] [...] [facility] | [address] | [place] [address] | | | SERVICES, CORE | PARK [...] LABORATORY | [address] | [place] [address] | | | SERVICES, CORE | [address] | | | + + + + + INR (08/18/2019 4:18 PM PST) + +-------+ + + + | Component | Value | Ref Range | Performed | Pathologist | | | | | At | Signature | + +-------+ + + + | INR | 1.11 | 0.90 - 1.20 INR | [facility] | | | | | | LABORATORY [...] [facility] | [address] | [place] [address] | | | SERVICES, LYDIA | CLARENCE [...] | [facility] | [address] [facility] | [place] [address] | | | SERVICES, CORE | CLARENCE [...] [facility] | [address] [facility] | [place] [address] | | | SERVICES, [facility] | [address] | | | + + + + + ED INFORMATION EXCHANGE (08/18/2019 1:47 PM PST) + + | Specimen | + + | | + + + + + | Narrative | Performed At | + + + | COLLECTIVE?NOTIFICATION?08/18/2019 13:47?DYLAN ROMERO?MRN: | [facility] | | [id number] Criteria Met 5 Visits In 12 Months Has | MEDICAL | | Guidelines PDMP Security and Safety No recent Security Events | [employer] | | currently on file ED Care Guidelines from Anita Margarita - Ezra | | | Last Updated: 12/06/18 9:53 AM Care Coordination: Receiving | | | mental health services with Anita Margarita.? Please contact Anita Margarita for | | | mental health concerns.? Sarah/Toni Centeno: [phone]? | | | Kishan: [phone].? These are guidelines and the provider | | | should exercise clinical judgment when providing care. Care | | | History Medical/Surgical 05/24/19 12:00 AM [facility] | | | Hospital PATIENT HAS AN APT ON 06/16/[address] HYLTON. | | | 05/11/19 12:00 AM [facility] Patient is | | | currently established with [facility]. If patient is seen in | | | the ED during business hours. Please contact CHWs at [facility] | | | Clinic. Care Recommendation: [...] care. 08/23/18 12:00 AM | | | [facility] PATIENT HAS A PCP APT TO ESTABLISH | | | CARE ON 10/04/18 @ 10:00AM WITH DR HYLTON. Flags | | | [place] Dis[place] - [place] | | | Dis[place]ity [place]) to help support Medicaid members with mental | | | illness. [facility] uses claims data with a 36-month [...] | are updated weekly. / Attributed By: [facility] ([facility]) / | | | Attributed [...] (12 | | | mo.) Facility Visits [facility] 1 [facility] and | | | [facility] 2 [facility] 7 Total 10 Note: | | | Visits indicate total known visits. Recent Emergency Department | | | Visit Summary Date Facility [facility] State Type Diagnoses or Chief | | | Complaint Aug 18, 2019 [facility] [place] | | | [place] Emergency 10,800. amr Jun 25, 2019 [facility] | | | [place] Emergency rat exterminator (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 | | | [...] [facility] [place] Emergency | | | rat exterminator (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 Prsnl hx of [...] without | | | status migrainosus Other predatory animal exterminator (current) drug therapy | | | Allergy status to oth drug/meds/biol subst status correction | | | (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 rat exterminator (current) use of | | | aspirin May 23, 2019 [facility] [place] Emergency | | | Anxiety disorder, unspecified Acute embolism and thrombosis of | | | deep veins of r up extrem Allergy status to penicillin | | | Other mcc (current) drug therapy Pain in right arm | | | correction (current) use of aspirin Allergy status to oth | | | drug/meds/biol subst status May 20, 2019 [facility] | | | [place] Emergency Generalized abdominal pain Allergy | | | status to oth drug/meds/biol subst status Unspecified abdominal | | | pain Anxiety disorder, unspecified Other chronic pain | | | Allergy status to penicillin rat exterminator (current) use of | | | aspirin Prsnl hx of TIA (TIA), and cereb infrc w/o resid | | | deficits Other predatory animal exterminator (current) drug therapy May 13, | | | 2019 [facility] and [facility] [place] Emergency | | | 10,800. A303 18,400. Bariatric surgery status 18,400. | | | Ventral hernia without obstruction or gangrene 18,400. Nausea | | | with vomiting, unspecified 18,400. Unspecified abdominal pain | | | 18,400. Nonspecific mesenteric lymphadenitis May 10, 2019 [facility] | | [facility] [place] Emergency Nausea with vomiting, | | | unspecified Solitary pulmonary nodule Anxiety disorder, | | | unspecified Ventral hernia without obstruction or gangrene | | | Unspecified abdominal pain Diarrhea, unspecified Allergy | | | status to oth drug/meds/biol subst status Prsnl hx of TIA (TIA), | | | and cereb infrc w/o resid deficits Other predatory animal exterminator (current) | | | drug therapy Allergy status to penicillin December 03, 2018 [facility] | | | [facility]. [place] Emergency RIGHT LEG PAIN DUE TO FALL | | | Strain of unsp musc/tend at lower leg level, right leg, init | | | Aug 22, 2018 [facility] [place] Emergency Other | | | mcc (current) drug therapy Upper abdominal pain, | | | unspecified Bariatric surgery status Allergy status to oth | | | drug/meds/biol subst status Noninfective gastroenteritis and | | | colitis, unspecified Obesity, unspecified Anxiety | | | disorder, unspecified rat exterminator (current) use of aspirin | | | Allergy status to penicillin Personal history of pulmonary | | | embolism Recent Inpatient Visit Summary No recorded | | | inpatient visits. Care Team Provider Specialty Phone Fax Service | | | Dates Eagle Nino CHW Community Health Worker | | | Jul 03, 2019 - Current JONES DAVISON D.M.D. Dentist: | | | Allergy And Immunology Chief May 23, 2019 - | | | Current Rob Tilley Oriental Rug Repairer/Head Boys Tennis Coach ([id number]) | | | [phone] Mar 27, 2018 - Current Bernard Hylton MD Internal | | | Medicine: Pulmonary Disease Aug 23, 2018 - Current | | | [employer] Portal This patient has registered at the [facility] | | | [facility] Emergency Department For more information | | | visit: | | | [email or web address] | | | [email or web address] PLEASE NOTE: 1. Any care recommendations [...] or completeness of information provided. ? 2020 [employer] | | | [employer]. - [email or web address] | | + + + + + [...] on fileED Care Guidelines | | from Anita Margarita - [place] Updated: 12/06/18 9:53 AM Care Coordination:Receiving | | mental health services with Anita Margarita.? Please contact Anita Margarita for mental health | | concerns.? Sarah/Toni Centeno: [phone]? Kishan: [phone].?These are | | guidelines and the provider should exercise clinical judgment when providing care.Care | | HistoryMedical/Lciobdex72/29/19 12:00 AM [facility] PATIENT HAS AN APT | | ON 06/16/[address] HYLTON.05/11/19 12:00 AM [facility] Patient is | | currently established with [facility]. If patient is seen in the ED during | | business hours. Please contact CHWs at [facility].Care Recommendation:This | | patient has [...] when providing | | care.08/23/18 12:00 AM [facility] PATIENT HAS A PCP APT TO ESTABLISH CARE | | ON 10/04/18 @ 10:00AM WITH DR HYLTON. Flags [place] Disparity [place] - [place] has | | developed a flag ([place] Dis[place]ity [place]) to help support Medicaid members with | | mental illness. [facility] uses claims data with a 36-month [...] | | updated weekly. / Attributed By: [facility] ([facility]) / Attributed On: | | 08/09/2019 [...] 0 E.D. Visit Count (12 mo.)Facility Visits [facility] 1 [facility] | | [facility] 2 [facility] 7 Total 10 Note: Visits indicate | | total known visits. Recent Emergency Department Visit SummaryDate Facility City State | | Type Diagnoses or Chief Complaint Aug 18, 2019 [facility] | | [place] Emergency 10,800. amr Jun 25, 2019 [facility]. [place] Emergency | | correction (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 Anxiety disorder, unspecified | | Cellulitis of abdominal wall Acute embolism and thrombosis of deep veins of r up | | extrem Nicotine dependence, unspecified, uncomplicated Migraine, unsp, not | | intractable, without status migrainosus Unspecified abdominal pain Allergy status | | to oth drug/meds/biol subst status Other mcc (current) drug therapy Allergy | | status to penicillin Jun 19, 2019 [facility] [place] Emergency rat exterminator | | (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 Prsnl [...] unspecified Jun 01, 2019 | | [facility] [place] Emergency Headache Allergy status to penicillin | | Anxiety disorder, unspecified Obesity, unspecified Migraine, unsp, not | | intractable, without status migrainosus Other mcc (current) drug therapy | | Allergy status to oth drug/meds/biol subst status correction (current) use of | | anticoagulants correction (current) use of aspirin May 23, 2019 [facility] | | [place] Emergency Anxiety disorder, unspecified Acute embolism and thrombosis of | | deep veins of r up extrem Allergy status to penicillin Other mcc (current) | | drug therapy Pain in right arm rat exterminator (current) use of aspirin Allergy | | status to oth drug/meds/biol subst status May 20, 2019 [facility] [place] | | Emergency Generalized abdominal pain Allergy status to oth drug/meds/biol subst | | status Unspecified abdominal pain Anxiety disorder, unspecified Other chronic | | pain Allergy status to penicillin correction (current) use of aspirin Prsnl hx | | of TIA (TIA), and cereb infrc w/o resid deficits Other mcc (current) drug | | therapy May 13, 2019 [facility] and [facility] [place] Emergency | | 10,800. A303 18,400. Bariatric surgery status 18,400. Ventral hernia without | | obstruction or gangrene 18,400. Nausea with vomiting, unspecified 18,400. | | Unspecified abdominal pain 18,400. Nonspecific mesenteric lymphadenitis May 10, 2019 | | [facility] [place] Emergency Nausea with vomiting, [...] status to penicillin November | | 2018 [facility]. [place] Emergency RIGHT LEG PAIN DUE TO FALL | | Strain of unsp musc/tend at lower leg level, right leg, init Aug 22, [address] [facility] | | [facility] [place] Emergency Other predatory animal exterminator (current) drug therapy Upper | | abdominal pain, unspecified Bariatric surgery status Allergy status to oth | | drug/meds/biol subst status Noninfective gastroenteritis and colitis, unspecified | | Obesity, unspecified Anxiety disorder, unspecified correction (current) use of | | aspirin Allergy status to penicillin Personal history of pulmonary embolism | | Recent Inpatient Visit SummaryNo recorded inpatient visits. Care TeamProvider Specialty | | Phone Fax Service Dates Eagle Nino CHW Community Health Worker | | Jul 03, 2019 - Current JONES DAVISON D.M.D. Dentist: Allergy And Immunology Chief ([id number]) | | [phone] May 23, 2019 - Current Rob Tilley Oriental Rug Repairer/Care | | Coordinator Mar 27, 2018 - Current Bernard Hylton MD Internal Medicine: | | Pulmonary Disease Aug 23, 2018 - Current [employer] [place] patient has registered | | at the [facility] and [facility] Emergency Department For more information | | visit: [email or web address] | | PLEASE NOTE: 1. Any care [...] completeness of information | | provided.? 2020 [employer]. - [email or web address] | | Allergy status to oth drug/meds/biol subst status | | Other mcc (current) drug therapy | | Allergy status to penicillin | | | |Jun 19, 2019 [facility] [place] Emergency | | correction (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 | | Prsnl [...] intractable, without status migrainosus | | Other mcc (current) drug therapy | | Allergy status to oth drug/meds/biol subst status | | correction (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 | | correction (current) use of aspirin | | | |May 23, 2019 [facility] [place] Emergency | | Anxiety disorder, unspecified | | Acute embolism and thrombosis of deep veins of r up extrem | | Allergy status to penicillin | | Other mcc (current) drug therapy | | Pain in right arm | | correction (current) use of aspirin | | Allergy status to oth drug/meds/biol subst status | | | |May 20, 2019 [facility] [place] Emergency | | Generalized abdominal pain | | Allergy status to oth drug/meds/biol subst status | | Unspecified abdominal pain | | Anxiety disorder, unspecified | | Other chronic pain | | Allergy status to penicillin | | rat exterminator (current) use of aspirin | | Prsnl hx of TIA (TIA), and cereb infrc w/o resid deficits | | Other mcc (current) drug therapy | | | |May 13, 2019 [facility] and [facility] [place] Emergency | | 10,800. A303 | | 18,400. Bariatric surgery status | | 18,400. Ventral hernia without obstruction or gangrene | | 18,400. Nausea with vomiting, unspecified | | 18,400. Unspecified abdominal pain | | 18,400. Nonspecific mesenteric lymphadenitis | | | |May 10, 2019 [facility] [place] Emergency | | Nausea with vomiting, unspecified | | Solitary pulmonary nodule | | Anxiety disorder, unspecified | | Ventral hernia without obstruction or gangrene | | Unspecified abdominal pain | | Diarrhea, unspecified | | Allergy status to oth drug/meds/biol subst status | | Prsnl hx of TIA (TIA), and cereb infrc w/o resid deficits | | Other predatory animal exterminator (current) drug therapy | | Allergy status to penicillin | | | |December 03, 2018 [facility]. [place] Emergency | | RIGHT LEG PAIN DUE TO FALL | | Strain of unsp musc/tend at lower leg level, right leg, init | | | |Aug 22, 2018 [facility] [place] Emergency | | Other predatory animal exterminator (current) drug therapy | | Upper abdominal pain, unspecified | | Bariatric surgery status | | Allergy status to oth drug/meds/biol subst status | | Noninfective gastroenteritis and colitis, unspecified | | Obesity, unspecified | | Anxiety disorder, unspecified | | correction (current) use of aspirin | | Allergy status to penicillin | | Personal history of pulmonary embolism | | | | | | | |Recent Inpatient Visit Summary | |No recorded inpatient visits. | | | |Care Team | |Provider Specialty Phone Fax Service Dates | |Eagle Nino CHW Community Health Worker Jul 03, 2019 - Current | |JONES DAVISON D.M.D. Dentist: Allergy And Immunology Chief May 23 019 - Current | |Rob Tilley Oriental Rug Repairer/Head Boys Tennis Coach Mar 27, 2018 - Current | |Bernard Hylton MD Internal Medicine: Pulmonary Disease Aug 23, 2018 - Current | | | |[employer] Portal | |This patient has registered at the [facility] t | |For more information visit: [email or web address] | |PLEASE NOTE: | | 1. Any [...] information provided. | | | |? 2020 [employer]. - [email or web address] | + + + + + + + | Performing | Address | City/State/Zipcode | Phone Number | | Organization | | | | + + + + + | [facility] | [address] | [place], [place] | [phone] | | [employer] | [address] | [address] | | + + + + + [...] + + +---+---+---+ | HYDROmorphone 0.5 mg/mL FURNACE ROOM SUPERVISOR | Rate/Dos | 08/20/19 | | | | | (ADULT STANDARD DOSE) in 0.9 % | e Verify | 20 4:12 | | | | | NaCl FURNACE ROOM SUPERVISOR Dose: 0.2 mg, Lockout | | AM [...] | | | | | NEEDED, Starting [facility] 08/18/19 at | | | | [...] tablet 1 dose, | | | Starting [facility] 08/18/19 at 1853, | | | Until [facility] 08/18/19 at 1915 | | + +---+ | | | + +---+ + +-------+ +-------+---+---+ | PARoxetine (PAXIL) tablet 40 mg | Given | 08/22/19 | 40 mg | | | | 40 mg, oral, AT BEDTIME, First | | 20 8:26 | | | | | dose on [facility] 08/18/19 at 2200, | | PM [...] | | | | First dose on [facility] 08/18/19 at | | AM PST [...]
--- OUTSIDE RECORDS SUMMARY | ~2019-12-19 | XMS | Encounter Summary ---
Demographics + + + | Address | [address] | | | [place] [address] | + + + | Home Phone [...] [place], [place] | | | | | [address] | | + + + + + | Ellie Vang | ECON | Unknown | | + + + + + Care Team Providers + +------+ + | Care Dental Laboratory Technician Apprentice Name | Role | Phone | [...] | BROCK Roldan | | | with [employer]OR | | hypertension | [address] | | | | | Right | [address] | [place] | | | | | heart | [place], [place] | [place], | | | | | failure | [address] | [place] | | | | | ([facility]) Type | Phone: | [address] | | | | | 2 diabetes | [phone] | | | | | | mellitus | Fax: | | | | | | without | [phone] | | | | | | complication | | | | | | | , with | | | | | | | long-term | | | | | | | current use | | | | | | | of insulin | | | | | | | ([facility]) | | | +--------+ + + + + + Encounter Details +--------+---------+ + + + | Date | Type | Department | Care Team | Description | +--------+---------+ + + + | 02/02/ | Office | Digestive Health | [address] | Morbid obesity with | | 2017 | Visit | Center at [facility] [address] | [address] | BMI of 70 and over, | | | | [facility] | Lesly Gutiérrez [place], | adult ([facility]) (Primary | | | | for Health and | [place] [address] | Dx); Type 2 | | | | Healing, Building 2 |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 | | | | [place], [place] | | without | | | | [address] | | complication, with | | | | [phone] | | long-term current | | | | | | use of insulin | | | | | | ([facility]); Chronic | | | | | | diastolic heart | | | | | | failure ([facility]) | +--------+---------+ + + + Social History [...] of Visit: 10:03 to 10:30 (27 minutes vtbr-lf-mwei with patient) (1 hour ap point not [...] eat like she should, tries to eat transition mgr rn things and this does not help. Food [...] rhinitis Anemia Anxiety Bipolar disorder ([facility]) Chronic wound infection of abdomen from 2010 Cough Depression Diverticulitis of colon Dizziness Glaucoma Heart burn Hemorrhoids Hernia of abdominal wall Incisional hernia, incarcerated 2012 Insomnia Irregular periods Kidney stone Leaking of urine Leg sore Lymphedema Morbid obesity with body mass index of 70 and over in adult ([facility]) Myalgia and myositis Nausea Neck pain Numbness Osteoarthritis of knee Palpitations Pneumonia Shortness of breath Staphylococcal infection Stroke ([facility]) 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 4. Call or send [employer] message to dietitian with any questions. Contact information was provided. Follow up with dietitian prior to surgery (take 2 Weight management classes as part of 6 mo [facility] care supervised diet). [address], [facility], LD [facility] Bariatrics [phone] documented in this enco unter Plan of Treatment +--------+---------+ + + + | Date | Type | Specialty | Care Team | Description | +--------+---------+ + + + | 03/15/ | Office | Cardiology | Randell Franks, | | | 2019 | Visit | | [address] | | | | | | [place], [place] | | | | | | [address] | | | | | | [phone] | | | | | | | [...] [facility]) - Primary | + + | Type 2 diabetes mellitus without complication, with long-term current use of insulin | | (HCC) | + + | Chronic diastolic heart failure (HCC) Chronic diastolic heart failure | + + documented in this encounter
--- OUTSIDE RECORDS SUMMARY | ~2019-12-19 | XMS | Encounter Summary ---
Demographics + + + | Address | [address] | | | [place] [address] | + + + | Home Phone [...] [place], [place] | | | | | [address] | | + + + + + | Ellie Vang | ECON | Unknown | | + + + + + Care Team Providers + +------+ + | Care Tapeman Name | Role | Phone | + [...] | | 2 diabetes | [place], | [place], [place] | | | | | mellitus | [place] [address] | [address] | | | | | without | Phone: | Phone: | | | | | complication | [phone] | [phone] | | | | | (HCC) | Fax: | Fax: | | | | | Procedures | [phone] | [phone] | | | | | [place] EST [...] | unspecified type | | | | [place] at | [place], [place] | (Primary Dx); Severe | | | | [place] [address] [address] | [address] | Morbid obesity | | | | [address] [facility] | [phone] | (HCC), BMI 88 | | | | [facility] | | | | | | [place], [place] | | | | | | [address] | | | | | | [phone] | | | +--------+---------+ + + + [...] nilesh limb 150 cm or less 8 [facility] Chole[facility], [facility] Current Outpatient [...] by mouth once daily at bedtime. CALCIUM CRB&LVS-M8-ZIS67-GENIS ORAL Take 2 tablets by mouth two [...] 50 mg by mouth once daily. thyroid ([facility] JUDGE THYROID) 30 mg oral tablet tab Take [...] 9 CREATININE PLASMA (LAB) 0.82 EGFR - UZBEK >60 EGFR NON -UZBEK >60 GLUCOSE, PLASMA (LAB) 94 CALCIUM, PLASMA [...] is currently being managed well by her Pick Remover with diuretics and main tenance of her [...] management of her heart failure by her Pick Remover 3) Continue management of her ventral hernia [...] [address] | | | | | | [place], [place] | | | | | | [address] | | | | | | [phone] | | | | | | | | +--------+---------+ + + + documented as of this encounter Procedures + +--------+ + + + | Procedure Name | Priori | Date/Time | Associated Diagnosis | Comments | | | ty | | | | + +--------+ + + + | [place] COLLECTION VENOUS | Routin | 09/15/2019 | [...] [facility] | [address] | [place] [address] | | | SERVICES, CORE | PARK [...] [facility] | [address] | [place] [address] | | | SERVICES, [place] | CLARENCE [...] 5.2Comment: Hgb A1C | <5.7 % | [facility] | [address] | [place] [address] | | | SERVICES, SPECIAL | PARK [...]
--- OUTSIDE RECORDS SUMMARY | ~2019-12-19 | XMS | Encounter Summary ---
Demographics + + + | Address | [address] | | | [place] [address] | + + + | Home Phone [...] [place], [place] | | | | | [address] | | + + + + + | Ellie Vang | ECON | Unknown | | + + + + + Care Team Providers + +------+ + | Care Mobility Manager Name | Role | Phone | [...] Randell | | | | | | [address] [address] | [address] | | | | | | [address], | Ave | | | | | | [address] | [place], [place] | | | | | | [place], [place] | [address] | | | | | | [address] | Phone: | | | | | | Phone: | [phone] | | | | | | [phone] | Fax: | | | | | | Fax: | [phone] | | | | | | [phone] | | +--------+--------+ + + + + Encounter Details +--------+---------+ + + + | Date | Type | Department | Care Team | Description | +--------+---------+ + + + | 08/29/ | Office | Cardiology | Randell Franks, | HTN (hypertension) | | 2013 | Visit | Preventive at [facility] | MD [address] | (Primary Dx); Type 2 | | | | [address] | [place], [place]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 | | | | Mailcode: [facility] | [address] | ([facility]); Morbid | | | | [facility] | [phone] | obesity (HCC) | | | | and Healing, | | | | | | Building 1 | | | | | | [place], [place] | | | | | | [address] | | | | | | [phone] | | | +--------+---------+ + + + [...] [address]ann[address] | | | | | | [place], [place] | | | | | | [address] | | | | | | [phone] | | | | | | | [...]
--- OUTSIDE RECORDS SUMMARY | ~2019-12-19 | XMS | Encounter Summary ---
Demographics + + + | Address | [address] | | | [place] [address] | + + + | Home Phone [...] [place], [place] | | | | | [address] | | + + + + + | Ellie Vang | ECON | Unknown | | + + + + + Care Team Providers + +------+ + | Care Composing Machine Operator/Tender Name | Role | Phone | + [...] 11/26/ | Abstract | Digestive Health | oIn Pandey, | Medical Records | | 2018 | | Center [address] | MD [address] | Review | | | | Ave Mailcode: CH4S | [place], [place] | | | | | [facility] | [address] | | | | | and [place], | [phone] | | | | | [place] [address] | | | | | | Floor [place], [place] | | | | | | [address] | | | | | | [phone] | | | +--------+ + + + [...] | | 2019 | Visit | | [address] | | | | | | [place], [place] | | | | | | [address] | | | | | | [phone] | | | | | | | | +--------+---------+ + + + documented as of this encounter Visit Diagnoses Not on filedocumented in this encounter"
--- OUTSIDE RECORDS SUMMARY | ~2019-12-19 | XMS | Encounter Summary ---
Demographics + + + | Address | [address] | | | [place] [address] | + + + | Home Phone [...] [place], [place] | | | | | [address] | | + + + + + | Ellie Vang | ECON | Unknown | | + + + + + Care Team Providers + +------+ + | Care Senior Network Systems Engineer Name | Role | Phone [...] 2019 | | Center at [facility] 3485 | AGACNP [address] | | | | | [address] | [place], [place] | | | | | Mailcode: [place] | [address] | | | | | for [facility] and | | | | | | [place] [address] | | | | | | [place], [place] | | | | | | [address] | | | | | | | [...] [address]ann[address] | | | | | | [place] | | | | | | [address] | | | | | | [phone] | | | | | | | | +--------+---------+ + + + documented as of this encounter Visit Diagnoses Not on filedocumented in this encounter"
--- OUTSIDE RECORDS SUMMARY | ~2019-12-19 | XMS | Encounter Summary ---
Demographics + + + | Address | [address] | | | [place] [address] | + + + | Home Phone [...] [place], [place] | | | | | [address] | | + + + + + | Ellie Vang | ECON | Unknown | | + + + + + Care Team Providers + +------+ + | Care Water Pollution Control Inspector Name | Role | Phone | [...] WITH | | | | Brock [facility] Moreno | [address]rence [address] [place], | INTRA-OP | | | | Hospital Admitting | [place] [address] | CHOLANGIOGRAM | | | | Desk Located on the | [phone] | | | | | 9th floor | | | | | | [place], [place] | | | | | | [address] | | | +--------+---------+ + + + [...] s note. PRADIP STARR MD [facility] [address] [place] [address] orrest, Maryam Yu MD - 1:05 PM PDT [facility] DEPARTMENT OF SURGERY EMERGENCY GENERAL SURGERY [...] Type 2 DM who presented to the [facility] ED ([place], [place]) on 02/06/14, with a week hi story of RUQ abdominal pain that radiates to her back. There, she was found to have leukocyt osis and multiple tiny, mobile stones, + sonographic Peterson's sign on abdominal ultrasound, concerning for acute cholecystitis. She was givenIV antibiotics (cipro, flagyl) and pain med s, then transferred to [facility] by [facility] for further care. Ms. Romero endorsed 02/02 [...] in 2-4 weeks ) Contact information [address] [facility] Mailcode: L223a [address] [place] [address] Thank you for the [...] s note. PRADIP STARR MD [facility] 10A [address] [place] [address] orrMaryam hill MD - 5:17 AM PDT [facility] DEPARTMENT OF SURGERY EMERGENCY GENERAL SURGERY Division [...] tolerated MARYAM RHODES MD PGY-1, General Surgery [address] pager number [facility] A [address] [facility] [address] documented in this encoun ter Plan of Treatment +--------+---------+ + + + | Date | Type | Specialty | Care Team | Description | +--------+---------+ + + + | 03/15/ | Office | Cardiology | Randell Franks, | | | 2019 | Visit | | [address] | | | | | | [place], [place] | | | | | | [address] | | | | | | [phone] | | | | | | | [...] KWAKU | [address] | [place], [place] | | | JUSTINE DAWN OF JAKY | [facility] | [address] | | | TESTS | | | [...] KWAKU | [address] | [place], [place] | | | JUSTINE DAWN OF CARE | [facility] | [address] | | | TESTS | | | [...] 60 - 99 mg/dL | [facility] - | | | GLUCOSE, | [...] AMES | [address] | [place], [place] | | | JUSTINE DAWN OF CARE | [facility] | [address] | | | TESTS | | | [...] KWAKU | [address] | [place], [place] | | | JUSTINE DAWN OF JAKY | [address] | [address] | | | TESTS | | | [...] [facility] | [address] | [place] [address] | | | SERVICES, | [address] [...] | + + + + + | [facility] | [address] | [place] [address] | | | SERVICES, | [address] [...] MARQUAM | [address] | [place], [place] | | | L[place]PE[place] POINT OF CARE | [address] | [address] | | | TESTS | | | [...] [facility] | [address] | [place] [address] | | | SERVICES, CORE | PARK [...] + + | [facility] | [address] [facility] | [place] [address] | | | SERVICES, CORE | PARK [...] [facility] | [address] | [place] [address] | | | SERVICES, CORE | PARK [...] [facility] | [address] [facility] | [place] [address] | | | SERVICES, CORE | CLARENCE [...] | + + + + + | [employer] | [address] | [place] [address] | | | SERVICES, CORE | PARK [...] MARQUAM | [address] | [place], [place] | | | JUSTINE DAWN OF CARE | [address] | [address] | | | TESTS | | | [...] pattern. | | | | | | Hospital Admitting Clerk | | | | | | sections [...] | + + + + + | [facility] | [address] | [place] [address] | | | PATHOLOGY | [address] [...]
--- OUTSIDE RECORDS SUMMARY | ~2019-12-19 | XMS | Encounter Summary ---
Demographics + + + | Address | [address] | | | [place] [address] | + + + | Home Phone [...] [place], [place] | | | | | [address] | | + + + + + | Ellie Vang | ECON | Unknown | | + + + + + Care Team Providers + +------+ + | Care Cdl B Driver Name | Role | Phone | [...] | | gastric | [address] | [place] | | | | | bypass | [place], [place] | Pavilion, 4th | | | | | Ventral | [address] | floor | | | | | hernia | Phone: | [place], [place] | | | | | without | [phone] | [address] | | | | | obstruction | Fax: | Phone: | | | | | or gangrene | [phone] | [phone] | | | | | Mixed | | Fax: | | | | | hyperlipidem | | [phone] | | | | | ia Diabetes [...] | | | | Mailcode: Center | [address] | Ventral hernia | | | | for Health and | [phone] | without obstruction | | | | Healing, Building 2 | | or gangrene; Mixed | | | | [place], [place] | | hyperlipidemia; | | | | [address] | | 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[phone] | | type 2 without | | [...] to POC and will call or send [employer] message if any issues. documented in this [...] tongue once daily., Disp: , Rfl: CALCIUM CRB&ECQ-L2-PRP26-GENIS ORAL, Take 2 tablets by mouth two [...] less 8 [facility] Social History Social History Marital status: Single Spouse name: N/A Number of children: 1 Years of education: N/A Occupational History disabled None Social History Main Topics Smoking status: Former Smoker Smokeless tobacco: Never Used Alcohol use No Drug use: No Sexual activity: Not on file Social History Narrative Updated 11/09/15 She lives in [place] with her mother and her sister (also her caregiver) lives in an apa rtment/duplex below. She has 2 grandchildren (age 4 and 7) who live with her daughter and son-in-law Her boyfriend lives in [place] HFpEF, DM2, HTN, Sleep Apnea (unable to [...] program here and refer her to our event specialist who also has expertise in physical [...] after this visit. Ronna Clarke DNP ACNP MAINTENANCE SERVICE TECHNICIAN Bariatric Surgery Nurse Practitioner [facility] | [address] | [place] | [address] | documented in this e ncounter Plan of Treatment +--------+---------+ + + + | Date | Type | Specialty | Care Team | Description | +--------+---------+ + + + | 03/15/ | Office | Cardiology | Randell Franks, | | | 2019 | Visit | | MD [address] | | | | | | [place], [place] | | | | | | [address] | | | | | | [phone] | | | | | | | | +--------+---------+ + + + documented as of this encounter Results X-RAY MOHAMUDLuba Chang RAVINDER (06/07/2018 9:47 AM PST) + + | Specimen | + + | | + + + + + | Narrative | Performed At | + + + | EXAM: Esophagram with director of scout work radiograph HISTORY: RYGB 03/01/2018, | [facility] | | vomiting/pain ever since COMPARISON: 04/27/2018 CT TECHNIQUE: | RADIOLOGY VOICE | | Director Broadcast radiograph was performed. Single contrast exam of the esophagus, | RECOGNITION 2 | | gastric pouch, and gastrojejunostomy in upright positioning. | | | Radiation dose reduction technique was maximized where appropriate | | | using pulsed fluoroscopy and fluoro-store images. Fluoro Time 57 | | | second(s) FINDINGS: Director Broadcast shows stone in the upper pole of [...] Note | + + | Service Account, Opara Res In Interface - 06/07/2018 11:18 AM PST EXAM: Esophagram | | with director of scout work radiograph HISTORY: RYGB 03/01/2018, vomiting/pain ever since COMPARISON: | | 04/27/2018 CT TECHNIQUE: Director Broadcast radiograph was performed. Single contrast exam of the | | esophagus, gastric pouch, and gastrojejunostomy in upright positioning. Radiation dose | | reduction technique was maximized where appropriate using pulsed fluoroscopy and | | fluoro-store images. Fluoro Time 57 second(s) FINDINGS:Director Broadcast shows stone in the upper | | [...] | + + + + + | [facility] | [address] | [place] [address] | | | SERVICES, CORE | CLARENCE [...] [facility] | [address] | [place] [address] | | | SERVICES, SPECIAL | PARK [...] B: | | | | | | [employer]CSP[employer] | | | | | | by [employer] | | | | | | [address], [facility],[place] | | | | | | [address] | | | | | | [phone][employer]. | | | | | | Ismael [...] [facility] | [address] | [place], [place] | | | [facility] | | [address] | | + + + + + [...] | | | LABORATORY | | | [place] | | | SERVICES, | | | [...] [facility] | [address] | [place] [address] | | | SERVICES, CORE | PARK [...] [facility] | [address] | [place] [address] | | | SERVICES, CORE | PARK [...] HOSPITAL LABORATORY | [address] | [place] [address] | | | SERVICES, CORE | PARK [...] | + + + + + | [facility] | [address] | [place] [address] | | | SERVICES, CORE | PARK [...] + + | [facility] | [address] [facility] | [place] [address] | | | CLAIRE, LYDIA | PARK [...] [facility] | [address] | [place] [address] | | | CLAIRE, CORE | CLARENCE [...]
--- OUTSIDE RECORDS SUMMARY | ~2019-12-19 | XMS | Encounter Summary ---
Demographics + + + | Address | [address] | | | [place] [address] | + + + | Home Phone [...] [place], [place] | | | | | [address] | | + + + + + | Ellie Vang | ECON | Unknown | | + + + + + Care Team Providers + +------+ + | Care Centrifugal Screen Tender Name | Role | Phone [...] 2012 | | Center at [facility] [address]85 | MD [address] | | | | | [address] | [facility] | | | | | Mailcode: [place] | [place], [place] | | | | | [facility] and | [address] | | | | | [facility] 2 | [phone] | | | | | [place], [place] | | | | | | [address] | | | | | | [phone] | | | +--------+ + + + [...] [place] | | | | | | [address] | | | | | | [phone] | | | | | | | | +--------+---------+ + + + documented as of this encounter Visit Diagnoses Not on filedocumented in this encounter"
--- OUTSIDE RECORDS SUMMARY | ~2019-12-19 | XMS | Encounter Summary ---
Demographics + + + | Address | [address] | | | [place] [address] | + + + | Home Phone [...] [place], [place] | | | | | [address] | | + + + + + | Ellie Vang | ECON | Unknown | | + + + + + Care Team Providers + +------+ + | Care Window Repairer Name | Role | Phone | + +------+ + | Fadi Goodrich DO | PCP | | + +------+ + Encounter Details +--------+ + + + + | Date | Type | Department | Care Team | Description | +--------+ + + + + | 06/17/ | Abstract | Digestive Health | Shereen Georges, | | | 2012 | | Center at [facility] [address] | ACNP [address] | | | | | [address] | Ave [place], [place] | | | | | Mailcode: [place] | [address] | | | | | for Health and | | | | | | [facility] 2 | | | | | | [facility] [place] | | | | | | [address] | | | | | | | [...] | | | | | | [place], [place] | | | | | | [address] | | | | | | [phone] | | | | | | | | +--------+---------+ + + + documented as of this encounter Visit Diagnoses Not on filedocumented in this encounter"
--- OUTSIDE RECORDS SUMMARY | ~2019-12-19 | XMS | Encounter Summary ---
Demographics + + + | Address | [address] | | | [place] [address] | + + + | Home Phone [...] + | Katalina Paidlla | ECON | [address] | | | | | [place], [place] | | | | | [address] | | + + + + + | Ellie Vang | ECON | Unknown | | + + + + + Care Team Providers + +------+ + | Care Lasting Room Machine Operator Name | Role | Phone [...] | | [address] | Ave [place], [place] | (Primary Dx); | | | | Mailcode: Center | [address] | Ventral hernia | | | | for Health and | [phone] | without obstruction | | | | Healing, Building 2 | | or gangrene; Mixed | | | | [place], [place] | | hyperlipidemia; | | | | [address] | | 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[phone] | | type 2 without | | [...] is doing Refill oxycodone Rx +Take acid granite polisher for first 3 mos, then wean off [...] to POC and will call [facility] ss[facility] if any issues. documented in this [...] times daily. , Disp: , Rfl: CALCIUM CRB&XNE-P0-IMI99-GENIS ORAL, Take 2 tablets by mouth two [...] Narrative Updated 11/09/15 She lives in [place] with her mother and her sister (also her caregiver) lives in an apa rtment/duplex below. She has 2 grandchildren (age 4 and 7) who live with her daughter and son-in-law Her boyfriend lives in [place] HFpEF, DM2, HTN, Sleep Apnea (unable to [...] program here and refer her to our radiology specialist who also has expertise in physical [...] Increase torsemide to pre-surgical dose +Take acid granite polisher for first 3 mos, then wean off [...] she will make an appointment with her Induction Coordination Power Engineer to discuss insulin dosing and CBGs 10. [...] to POC and will call or send [facility] ssage if any issues. Start time 15:35, end time 15:55. I spent a total of 20 minutes face to face with this pat ient. Over 50% of visit was in counseling. ~ 10 minutes of additional time spent reviewing chart prior to visit and documenting after this visit. Ronna Clarke DNP ACNP FINANCIAL ANALYSIS MANAGER Bariatric Surgery Nurse Practitioner [facility] | [address] | [place] | [address] | documented in this e ncounter Plan of Treatment +--------+---------+ + + + | Date | Type | Specialty | Care Team | Description | +--------+---------+ + + + | 03/15/ | Office | Cardiology | Randell Franks, | | | 2019 | Visit | | [address] | | | | | | [place], [place] | | | | | | [address] | | | | | | [phone] | | | | | | | [...] | | cells No organisms seen | [place] | + + + + + + + + | Performing | Address | City/State/Zipcode | Phone Number | | Organization | | | | + + + + + | [facility] | [address] | [place] [address] | | | [place] | | | | + + + [...]
--- OUTSIDE RECORDS SUMMARY | ~2019-12-19 | XMS | Encounter Summary ---
Demographics + + + | Address | [address] | | | [place] [address] | + + + | Home Phone [...] [place], [place] | | | | | [address] | | + + + + + | Ellie Vang | ECON | Unknown | | + + + + + Care Team Providers + +------+ + | Care Flame Cutting Machine Operator Name | Role | Phone | + +------+ + | Fadi Goodrich DO | PCP | | + +------+ + Encounter Details +--------+---------+ + + + | Date | Type | Department | Care Team | Description | +--------+---------+ + + + | 02/22/ | Office | Preoperative | Gay Hoff, | Preop examination | | 2018 | Visit | [facility] at | DNP,ANP [address] | (Primary Dx) | | | | [facility] | [address] | | | | | [address] | [place], [place] | | | | | Mail Code: OC8PM | [address] | | | | | [facility] | [phone] | | | | | and Healing, | | | | | | Building [address] | | | | | | [place], [place] | | | | | | [address] | | | | | | [phone] | | | +--------+---------+ + + + [...] location: Admitting - [facility], ninth floor lobby Surgery Check in Time: [...] it is after office hours, call the [facility] combiner operator at [phone] and ask them to page him or [...] d function per TTE ( 02/16/2017) from [facility]: Improved and stable. T2DM - controlled with [...] renal failure no electrolyte abnormalities no dialysis Urology/Private Duty Lpn: Within Defined Limits except as noted below [...] mg by mouth two times daily. CALCIUM CRB&QOJ-K0-HWC50-GENIS ORAL Take 2 tablets by mouth two [...] 2010 Ventral hernia repair 10/2012 Dr. Andie Brain Incisional hernia repair 03/01/2015 [facility] [...] 98ms, QTC 460ms, TTE ( 02/16/2017) - [employer] Ever[employer] System 1. Overall left ventricular systolic function is normal with, an EF between 60 - 65 %. 2. The right ventricle is normal in size and function. 3. No significant valvular abnormalities are noted. 4. In comparison to the previous (technically difficult) echocardiographic study done 01/01, no signfiicant changes are noted. TTE (02/17/2016) - [employer] Conclusions 1. There is normal left ventricular [...] and resp iratory change. TTE (11/07/2015) - [facility] Final Impressions: 1. The interpretation of [...] d function per TTE ( 02/16/2017) form [facility]. Improved and stable. - Confirmed with [...] Advised to bring her own apparatus for [facility]. GERD - On omeprazole. Chronic Fluid retention [...] to this patient's care. Gay Hoff, ERENDIRA,ANP [facility] PREADMIT CLINIC [facility] PBB PREOPERATIVE MEDICINE CLINIC AT [facility] 4TH FLOOR [address] [facility] [address] I spent time (45 minutes, >50% [...] [address] | | | | | | [place], [place] | | | | | | [address] | | | | | | [phone] | | | | | | | | +--------+---------+ + + + + + +--------+ + + | Name | Type | Priori | Associated Diagnoses | Order Schedule | | | | ty | | | + + +--------+ + + | COMMUNICATION TO [facility] | Procedures | Routin | [...] | + + + + + | [facility] | [address] | [place] [address] | | | SERVICES, CORE | CLARENCE [...] [facility] | [address] | [place] [address] | | | SERVICES, | [address] [...] | + + + + + | [facility] | [address] | [place] [address] | | | SERVICES, | [address] [...] [facility] | | considered for monitoring exterminator glycemic control in patients with: | [...] [facility] | [address] | [place] [address] | | | SERVICES, SPECIAL | [address] [...] [facility] | [address] | [place] [address] | | | LYDIA RANGEL | CLARENCE [...] DEPT OF | [address] | [place], [place] | | | CARDIOLOGY | [address] | [address] | | + + + + + documented in this encounter Visit Diagnoses + + | Diagnosis | + + | Preop examination - Primary Preoperative examination, unspecified | + + documented in this encounter
--- OUTSIDE RECORDS SUMMARY | ~2019-12-19 | XMS | Encounter Summary ---
Demographics + + + | Address | [address] | | | [place] [address] | + + + | Home Phone [...] [place], [place] | | | | | [address] | | + + + + + | Ellie Vang | ECON | Unknown | | + + + + + Care Team Providers + +------+ + | Care Medicinal Chemist Name | Role | Phone | + +------+ + | Fadi Goodrich DO | PCP | | + +------+ + Encounter Details +--------+ + + + + | Date | Type | Department | Care Team | Description | +--------+ + + + + | 08/16/ | Abstract | Digestive Health | Kathy Feldman, | | | 2013 | | Center at [facility] [address] | HEARING AID ASSEMBLY SUPERVISOR [address] | | | | | [address] | [facility] [address] | | | | | Mailcode: Center | [place], [place] | | | | | [facility] and | [address] | | | | | [facility] 2 | [phone] | | | | | [place], [place] | | | | | | [address] | | | | | | [phone] | | | +--------+ + + + [...] [address] | | | | | | [place], [place] | | | | | | [address] | | | | | | [phone] | | | | | | | | +--------+---------+ + + + documented as of this encounter Visit Diagnoses Not on filedocumented in this encounter"
--- OUTSIDE RECORDS SUMMARY | ~2019-12-19 | XMS | Encounter Summary ---
Demographics + + + | Address | [address] | | | [place] [address] | + + + | Home Phone [...] [place], [place] | | | | | [address] | | + + + + + | Ellie Vang | ECON | Unknown | | + + + + + Care Team Providers + +------+ + | Care Laundromat Worker Name | Role | Phone | + +------+ + | Fadi Goodrich DO | PCP | | + +------+ + Encounter Details +--------+ + + + + | Date | Type | Department | Care Team | Description | +--------+ + + + + | 07/19/ | Abstract | Digestive Health | Kathy Feldman, | | | 2012 | | Center at [facility] [address] | PROJECT MANAGER [address] | | | | | [address] | [facility] [address] | | | | | Mailcode: Center | [place], [place] | | | | | [facility] and | [address] | | | | | [facility] 2 | [phone] | | | | | [place], [place] | | | | | | [address] | | | | | | [phone] | | | +--------+ + + + [...] [address] | | | | | | [place], [place] | | | | | | [address] | | | | | | [phone] | | | | | | | | +--------+---------+ + + + documented as of this encounter Visit Diagnoses Not on filedocumented in this encounter"
--- OUTSIDE RECORDS SUMMARY | ~2019-12-19 | XMS | Encounter Summary ---
Demographics + + + | Address | [address] | | | [place] [address] | + + + | Home Phone [...] [place], [place] | | | | | [address] | | + + + + + | Ellie Vang | ECON | Unknown | | + + + + + Care Team Providers + +------+ + | Care Creative Services Intern Name | Role | Phone | [...] + + | 05/13/ | Emergency | [facility] Emergency | Nay Joe | | | 2019 - | | Department [address] | | | | | [address] | [address] | | | 05/14/ | | [facility] | [place], [place] | | | 2019 | | [place], [place] | [address] | | | | | [address] | [phone] | | | | | [phone] | | | +--------+ + + + [...] might be different fr om the original. [facility] Discharge Summary Green Surgery Admit [...] by mouth once daily at bedtime. CALCIUM CRB&LKM-I1-GDN11-GENIS ORAL Take 2 tablets by mouth two [...] the prescribed narcotic-opioid (e.g. oxycodone, hydrocodone, Vicodin, Penobscot, Percoce t, Dilaudid) as needed. Opioid pain medications may cause constipation, so be sure to take a stool softener if you take an opioid pain medication. FOLLOW-UP: Follow-up with your primary care provider for pain control. Dr. Tiwari's e commerce project manager will contact you to try to find a date for surgery. Follow Up: Future Appointments Provider Department Dept Phone Center 06/27/2019 11:55 AM [facility] PHONE/RN CLIN 3 Preoperative Medicine Clinic at [place] [address] [phone] [facility] 06/30/2019 11:30 AM Aly Franks Cardiology in [facility] Schedule the following appointment(s) when you get home JONES TIWARI MD. Specialty: General Surgery Why: Dr. Tiwari's e commerce project manager will call you to schedule a surgery date. Contact information [address] [place] [address] [place] [address] Kenyatta Hylton MD. Specialty: Family [...] oriented. Grossly intact. Anisa Christopher MD PhD [facility] General Surgery ATTENDING PHYSICIAN STATEMENT I saw the patient and have repeated the pertinent portions of the history and physical exam . I agree with the findings, assessment and plan as documented by the resident. Johana Holloway MD Division of Gastrointestinal and General Surgery [facility] [address] [place] [address] Office: [phone] documented in this e ncounter Discharge Instructions [...] surgery date up as possible and the e commerce project manager will contact you. Elec tronically signed by [...] the prescribed narcotic-opioid (e.g. oxycodone, hydrocodone, Vicodin, Penobscot, Percoce t, Dilaudid) as needed. Opioid pain medications may cause constipation, so be sure to take a stool softener if you take an opioid pain medication. FOLLOW-UP: Follow-up with your primary care provider for pain control. Dr. Tiwari's e commerce project manager will contact you to try to find [...] | | 0 | | | | CRB&FYO-A7-GBK40-GEN | mouth two times | | | [...] [address] | | | | | | [facility] [place] | | | | | | [address] | | | | | | [phone] | | | | | | | [...] [facility] | [address] | [place], [place] | | | [facility] | [address] | [address] | | | TESTS | | | [...] [facility] | [address] | [place] [address] | | | SERVICES, CORE | CLARENCE [...] MDRD equation recommended by the National | [facility] | | Kidney Disease Education [...] + + | [facility] | [address] | [place] [address] | | | SERVICES, [facility] [...] abdomen and pelvis WITH intravenous contrast. | [facility] | | HISTORY: Concern for incarcerated hernia [...] [facility] | [address] | [place] [address] | | | SERVICES, CORE | PARK [...] 5-6 weeks | | | 850 - 84015 6-7 weeks | | | 4000 - 218721 7-12 weeks | | | 57539 - 301779 12-16 weeks | | | 16641 - 693161 16-29 | | | weeks 1400 - 81102 | | | 29-41 weeks 940 - 52078 | | | This test has not been approved for use as a tumor marker in | | | males or females. | | + + + + + + + + | Performing | Address | City/State/Zipcode | Phone Number | | Organization | | | | + + + + + | [facility] | [address] | [place] [address] | | | SERVICES, CORE | PARK [...] + + | [facility] | [address] | [place] [address] | | | SERVICES, CORE | PARK [...] + + | [facility] | [address] | [place] [address] | | | LYDIA RANGEL | [address] | | | + + + + + ED INFORMATION EXCHANGE (05/13/2019 5:14 PM PDT) + + | Specimen | + + | | + + + + + | Narrative | Performed At | + + + | COLLECTIVE?NOTIFICATION?05/13/2019 17:13?DYLAN ROMERO?MRN: | [facility] | | [id number] Criteria Met Has Guidelines PDMP Security | MEDICAL | | and Safety No recent Security Events currently on file ED Care | TE[employer]OLOG[employer] | | Guidelines from [facility] [place] Last Updated: 12/06/18 9:53 AM | | | Care Coordination: Receiving mental health services with | | | [facility].? Please contact [facility] for mental health concerns.? | | | Sarah/Toni Centeno: [phone]? [facility]: [phone].? | | | These are guidelines and the provider should exercise clinical | | | judgment when providing care. Care History Medical/Surgical | | | 05/11/19 12:00 AM [facility] Patient is | | | currently established with [facility]. If patient is seen in | | | the ED during business hours. Please contact CHWs at [facility] | | | [facility]. Care Recommendation: This patient has [...] 08/23/18 12:00 AM | | | [facility] PATIENT HAS A [...] SUDOGEST 30 MG TABLET 5 BERNARDO VERONICA, PAINT STRIPPER 0 | | | 2019-03-30 SUDOGEST 30 MG TABLET 30 BERNARDO MARTIN, PAINT STRIPPER 0 | | | 2019-03-20 ALPRAZOLAM 1 [...] (12 mo.) Facility Visits | | | [facility] 1 [facility] 1 | | | [facility] 2 Total 4 Note: Visits indicate total | | | known visits. Recent Emergency Department Visit Summary Date | | | Facility City State Type Diagnoses or Chief Complaint May 13, 2019 | | | [facility] [place] Emergency | | | 10,800. A303 [facility] [place] [place] | | | [...] | infrc w/o resid deficits Other terminal supervisor (current) drug therapy | | | Allergy status to penicillin December 03, 2018 [facility] | | | [facility] [place]. [place] Emergency RIGHT LEG PAIN DUE TO FALL | | | Strain of unsp musc/tend at lower leg level, right leg, init Jul | | | 2018 [facility]. [place] Emergency Other detention | | | (current) drug therapy Upper [...] Service Dates Treva | | | [employer] Doctor/Research Statistician Mar 27, 2018 - | | | Current Bernard Hylton MD Internal Medicine: Pulmonary Disease | | | Aug 23, 2018 - Current [employer] This patient has | | | registered at the [facility] Emergency | | | Department For more information visit: | | | [email or web address] | | | [email or web address] PLEASE NOTE: 1. Any care recommendations [...] the limitations of applicable | | | [facility] Policies. 3. You should consult directly with the | | | organization that provided a care guideline or other clinical | | | history with any questions about additional information or accuracy | | | or completeness of information provided. ? 2019 Any.DO | | | [employer]. - www.[email or web address] | | + + + + + | Procedure Note | + + | Service Account, Rtf Results Inbound - 05/13/2019 5:16 PM PDT Formatting of this | | note might be different from the original.COLLECTIVE?NOTIFICATION?05/13/2019 | | 17:13?DYLAN ROMERO? [facility] Has Guidelines PDMPSecurity and | | SafetyNo recent Security Events currently on fileED Care Guidelines from [facility] - | | Irma Updated: 12/06/18 9:53 AM Care Coordination:Receiving mental health | | services with [facility].? Please contact [facility] for mental health concerns.? | | [facility]: [phone]? [facility]: [phone].?These are guidelines | | and the provider should exercise clinical judgment when providing care.Care | | HistoryMedical/Sdfiaiuh29/16/19 12:00 AM [facility] Patient is currently | | established with [facility]. If patient is seen in the ED during business hours. | | Please contact CHWs at [facility].Care Recommendation:This patient has had 5 or [...] SUDOGEST 30 MG TABLET 5 BERNARDO MARTIN, PAINT STRIPPER 0 2019-03-30 SUDOGEST 30 MG TABLET 30 | | BERNARDO MARTIN, PAINT STRIPPER 0 2019-03-20 ALPRAZOLAM 1 MG TABLET 60 [...] 0 E.D. Visit Count (12 mo.)Facility Visits [facility] | | Health 1 [facility] 1 [facility] 2 Total 4 Note: | | Visits indicate total known visits. Recent Emergency Department Visit SummaryDate | | Facility City State Type Diagnoses or Chief Complaint May 13, 2019 [facility] and | | [facility] [place] Emergency 10,800. A303 May 10, 2019 [facility] | | [place] Emergency Nausea with vomiting, unspecified Solitary pulmonary nodule | | Anxiety disorder, unspecified Ventral hernia without obstruction or gangrene | | Unspecified abdominal pain Diarrhea, unspecified Allergy status to oth | | drug/meds/biol subst status Prsnl hx of TIA (TIA), and cereb infrc w/o resid deficits | | Other terminal supervisor (current) drug therapy Allergy status to penicillin December 03, 2018 | | [facility] [place] Emergency RIGHT LEG PAIN DUE TO FALL Strain of | | unsp musc/tend at lower leg level, right leg, init Aug 22, 2018 [facility] | | [place] Emergency Other detention (current) drug therapy Upper abdominal pain, | | unspecified Bariatric surgery status Allergy status to oth drug/meds/biol subst | | status Noninfective gastroenteritis and colitis, unspecified Obesity, unspecified | | Anxiety disorder, unspecified rat exterminator (current) use of aspirin Allergy status | | to penicillin Personal history of pulmonary embolism Recent Inpatient Visit | | SummaryNo recorded inpatient visits. Care TeamProvider Specialty Phone Fax Service Dates | | [employer] Doctor/Research Statistician Mar 27, 2018 - Current | | Bernard Hylton MD Internal Medicine: Pulmonary Disease Aug 23, 2018 - Current | | [facility] Eddi patient has registered at the [facility] | | Emergency Department For more information visit: | | [email or web address] PLEASE | | NOTE: 1. Any care [...] to the | | limitations of applicable [employer] Policies. 3. You should consult directly with | | the organization that provided a care guideline or other clinical history with any | | questions about additional information or accuracy or completeness of information | | provided.? 2019 [employer]. - www.[email or web address] | |[facility] 3 | |Benzos 4 | |Opioids 7 | |Long Acting Opioids 0 | | | | | | | |E.D. Visit Count (12 mo.) | |Facility Visits | |[facility] 1 | |[facility] 1 | |[facility] 2 | |Total 4 | |Note: Visits indicate total known visits. | | | |Recent Emergency Department Visit Summary | |Date Facility City State Type Diagnoses or Chief Complaint | |May 13, 2019 [facility] [place] Emergency | | 10,800. A303 | | | |May 10, 2019 [facility] [place] Emergency | | [...] w/o resid deficits | | Other terminal supervisor (current) drug therapy | | Allergy status to penicillin | | | |December 03, 2018 [facility]. [place] Emergency | | RIGHT LEG PAIN DUE TO FALL | | Strain of unsp musc/tend at lower leg level, right leg, init | | | |Aug 22, [address] [facility] [place] [place] Emergency | | Other terminal supervisor (current) drug therapy | | Upper [...] Phone Fax Service Dates | |[employer] Doctor/Research Statistician Mar 27, 2018 - Current | |Bernard Hylton MD Internal Medicine: Pulmonary Disease Aug 23, 2018 - Current | | | |[facility] Portal | |This patient has registered at the [facility] [place] Emergency Departmen t | |For more information visit: [email or web address] | |PLEASE NOTE: | | 1. Any [...] information provided. | | | |? 2019 [employer]. - [employer]MM[employer] (PICA) | + + + + + + + | Performing | Address | City/State/Zipcode | Phone Number | | Organization | | | | + + + + + | [facility] | [address] | [place], [place] | [phone] | | TECHNOLOGIES | [address] | [address] | | + + + + + [...] | | | | ONCE, 1 dose, [facility] 05/13/19 at | | PM PDT | [...]
--- OUTSIDE RECORDS SUMMARY | ~2019-12-19 | XMS | Encounter Summary ---
Demographics + + + | Address | [address] | | | [place] [address] | + + + | Home Phone [...] [place], [place] | | | | | [address] | | + + + + + | Ellie Vang | ECON | Unknown | | + + + + + Care Team Providers + +------+ + | Care Gun Stocker Name | Role | Phone | [...] [address] | | | | | | [place], [place] | | | | | | [address] | | | | | | [phone] | | | | | | | | +--------+---------+ + + + documented as of this encounter Visit Diagnoses Not on filedocumented in this encounter"
--- OUTSIDE RECORDS SUMMARY | ~2019-12-19 | XMS | Encounter Summary ---
Demographics + + + | Address | [address] | | | [place] [address] | + + + | Home Phone [...] [place], [place] | | | | | [address] | | + + + + + [...] floor | | | | | | [place], [place] | | | | | | [address] | | | +--------+ + + + [...] [address]ann[address] | | | | | | [place], [place] | | | | | | [address] | | | | | | [phone] | | | | | | | | +--------+---------+ + + + documented as of this encounter Visit Diagnoses Not on filedocumented in this encounter"
--- OUTSIDE RECORDS SUMMARY | ~2019-12-19 | XMS | Encounter Summary ---
Demographics + + + | Address | [address] | | | [place] [address] | + + + | Home Phone [...] | [facility] | | | and Jeffana | + + + | Organization | [facility] | | | and [...] Providers + +------+ + | Care Night Warehouse Selector Name | Role | Phone | + [...] | | | | | previous | [place], | [address] | | | | | audiogram | [place] [address] | [place], [place] | | | | | Procedures | Phone: | [address] Phone: | | | | | OFFICE VISIT | [phone] | [phone] | | | | | REGULAR | Fax: | Fax: | | | | | | [phone] | [phone] | +--------+--------+ + + + + Encounter [...] | | [address] | [facility] [place] [address] | Pressure sensation | | | | [place] [address] | [phone] | in both ears | | | | [place] [address] | | | | | | [phone] | | | +--------+---------+ + + + [...] RICHEY | | | | | | [place] [address] | | | | | | [phone] | | | | | | | [...]
--- OUTSIDE RECORDS SUMMARY | ~2019-12-19 | XMS | Encounter Summary ---
Demographics + + + | Address | [address] | | | [place] [address] | + + + | Home Phone [...] [place], [place] | | | | | [address] | | + + + + + | Ellie Vang | ECON | Unknown | | + + + + + Care Team Providers + +------+ + | Care Shirt Ironer Supervisor Name | Role | Phone | + +------+ + | Fadi Goodrich DO | PCP | | + +------+ + Encounter Details +--------+ + + + + | Date | Type | Department | Care Team | Description | +--------+ + + + + | 12/05/ | Abstract | Cardiology | Randell Franks, | | | 2016 | | Preventive at [facility] | MD [address] | | | | | [address] | [facility] [place] | | | | | Mailcode: CH9A | [address] | | | | | [facility] | [phone] | | | | | and Healing, | | | | | | Building [address] | | | | | | [facility] [place] | | | | | | [address] | | | | | | [phone] | | | +--------+ + + + [...] | | 2019 | Visit | | [address] | | | | | | [place], [place] | | | | | | [address] | | | | | | [phone] | | | | | | | | +--------+---------+ + + + documented as of this encounter Visit Diagnoses Not on filedocumented in this encounter"
--- OUTSIDE RECORDS SUMMARY | ~2019-12-19 | XMS | Encounter Summary ---
Demographics + + + | Address | [address] | | | [place] [address] | + + + | Home Phone [...] [place], [place] | | | | | [address] | | + + + + + | Ellie Vang | ECON | Unknown | | + + + + + Care Team Providers + +------+ + | Care Traffic Control Signaler Name | Role | Phone | + [...] | 2019 | | Center at [facility] [address] | | Review | | | | [address] | | | | | | Mailcode: [place] | | | | | | [facility] Health and | | | | | | [facility] 2 | | | | | | [place], [place] | | | | | | [address] | | | | | | [phone] | | | +--------+ + + + [...] Flannery | | | | | | [place] | | | | | | [address] | | | | | | [phone] | | | | | | | | +--------+---------+ + + + documented as of this encounter Visit Diagnoses Not on filedocumented in this encounter"
--- OUTSIDE RECORDS SUMMARY | ~2019-12-19 | XMS | Encounter Summary ---
Demographics + + + | Address | [address] | | | [place] [address] | + + + | Home Phone [...] [place], [place] | | | | | [address] | | + + + + + | Ellie Vang | ECON | Unknown | | + + + + + Care Team Providers + +------+ + | Care Photographic Enlarger Operator Name | Role | Phone | [...] | | | | | essential | [address] | [address] | | | | | hypertension | [address], | Ave | | | | | Type II or | [address] | [place], [place] | | | | | unspecified | [place], [place] | [address] | | | | | type | [address] | Phone: | | | | | diabetes | Phone: | [phone] | | | | | mellitus | [phone] | Fax: | | | | | without | Fax: | [phone] | | | | | mention of | [phone] | | | | | | complication [...] | | [address] | [place], [place] | (Primary Dx) | | | | Mailcode: CH9A | [address] | | | | | [facility] | [phone] | | | | | and Erick, | | | | | | Building [address] | | | | | | [place], [place] | | | | | | [address] | | | | | | [phone] | | | +--------+---------+ + + + [...] Wi ll discuss with Dr. Brian and acetylene gas compressor her best strategies for meeting weight loss [...] Flannery | | | | | | [place], [place] | | | | | | [address] | | | | | | [phone] | | | | | | | [...] MEDICAL [facility]ENTER | [address] | [place] [address] | | | SERVICES, SPECIAL | CLARENCE [...]
--- OUTSIDE RECORDS SUMMARY | ~2019-12-19 | XMS | Encounter Summary ---
Demographics + + + | Address | [address] | | | [place] [address] | + + + | Home Phone [...] [place], [place] | | | | | [address] | | + + + + + | Ellie Vang | ECON | Unknown | | + + + + + Care Team Providers + +------+ + | Care Investigator Fraud Name | Role | Phone | + +------+ + | Fadi Goodrich DO | PCP | | + +------+ + Encounter Details +--------+ + + + + | Date | Type | Department | Care Team | Description | +--------+ + + + + | 08/22/ | Abstract | Cardiology | Randell Franks, | | | 2013 | | Preventive at [facility] | MD [address] | | | | | [address] | [place], [place] | | | | | Mailcode: CH9A | [address] | | | | | [facility] | [phone] | | | | | and Healing, | | | | | | [address] | | | | | | [facility] [place] | | | | | | [address] | | | | | | [phone] | | | +--------+ + + + [...] | | | | | | [place], [place] | | | | | | [address] | | | | | | [phone] | | | | | | | | +--------+---------+ + + + documented as of this encounter Visit Diagnoses Not on filedocumented in this encounter"
--- OUTSIDE RECORDS SUMMARY | ~2019-12-19 | XMS | Encounter Summary ---
[...] [place], [place] | | | | | [address] | | + + + + + | Ellie Vang | ECON | Unknown | | + + + + + Care Team Providers + +------+ + | Care Linux Unix Engineer Name | Role | Phone | [...] | [facility] | | | with ADDING MACHINE OPERATOR | | hypertension | [address] | [address] | | | | | Right | [address] | [address] | | | | | heart | [place], [place] | Mailcode: | | | | | failure | [address] | Center [facility] | | | | | ([facility]) Type | Phone: | Health and | | | | | 2 diabetes | [phone] | Healing, | | | | | mellitus | Fax: | [address] 2 | | | | | without | [phone] | [place], [place] | | | | | complication | | [address] | | | | | , with | | Phone: | | | | | long-term | | | | | | | current use | | Fax: | | | | | of insulin | | [phone] | | | | | ([facility]) | | | | | [...] at [facility] [address] | [address] | BMI of 70 and over, | | | | [address] | [place], [place] | adult ([facility]) (Primary | | | | Mailcode: Center | [address] | Dx); Diabetes | | | | for coJuvo and | [phone] | mellitus type 2 | | | | [facility], [address] | | without retinopathy | | | | [place], [place] | | ([facility]); | | | | [address] | | Intertriginous | | | | [phone] | | candidiasis; PCOS | | | | | | (polycystic ovarian | | | | | | syndrome); AMARA | | | | | | treated with BiPAP; | | | | | | Chronic diastolic | | | | | | heart failure ([facility]); | | | | | [...] 10/30/2017 10:00 AM PDTPlease visit with our [facility] Supply Manager (RD) for instructions about your Bariatric diet, assistance with calorie c ounts, tips and tricks for working with your diet restrictions, and recipes after bariatric surgery. Daily yogurt; even just 1 tablespoon twice a day will provide enough probiotics to optimize digestion. Try to use a high-quality, probiotic-dense yogurt (eg Zaria's, Kobifield, Stacie lala Kefir, Stunt Driver Duke's Anguillan Yogurt). Remember to chew your food well, [...] healing stomach. There are also exterminator helper termite complications of poor wound healing and gastric [...] 1 tablet by mouth once daily CALCIUM CRB&TRU-I3-QDD19-GENIS ORAL Take 2 tablets by mouth two [...] History Narrative Updated 11/09/15 She lives in [place] with her mother and her sister (also her caregiver) lives in an artment/duplex below. She has 2 grandchildren (age 4 and 7) who live with her daughter and son-in-law Her boyfriend lives in [place] HFpEF, DM2, HTN, Sleep Apnea (unable to [...] program here and refer her to our infantry operations specialist who also has expertise in physical [...] a 4-5% rate of reoperation over the exterminator helper termite (i.e. years), as well as other late [...] and may approach 5%. We reviewed the [facility] consent form. We discussed that we did [...] Flannery | | | | | | [place], [place] | | | | | | [address] | | | | | | [phone] | | | | | | | [...] | |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 ([facility]) | | | | | [...] | | | | determined by [facility] | | | | | | Laboratories. See | | | | | | Compliance Statement B: | | | | | | [employer]CSPerformed | | | | | | by [address] | | | | | | Liliana Martinez [facility],[place] | | | | | | [address] | | | | | | [phone].[employer]. | | | | | | comIsmael [...] [facility] | [address] | [place], [place] | | | UN[facility] | | [address] | | + + + + + [...] + + + + | [facility]ana | [address] | [place] [address] | | | SERVICES, LYDIA | CLARENCE [...] | + + + + + | [facility] | [address] | [place] [address] | | | SERVICES, CORE | CLARENCE [...] | + + + + + | [facility] | [address] | [place] [address] | | | SERVICES, CORE | PARK [...] [facility] | [address] | [place] [address] | | | SERVICES, CORE | PARK [...] [facility] | [address] | [place] [address] | | | SERVICES, LYDIA | CLARENCE [...] [facility] | [address] | [place] [address] | | | SERVICES, CORE | [address] | | | + + + + + documented in this encounter Visit Diagnoses + + | Diagnosis | + + | Morbid obesity with BMI of 70 and over, adult ([facility]) - Primary | + + | Diabetes mellitus type 2 without retinopathy ([facility]) Type II or unspecified type [...]
--- OUTSIDE RECORDS SUMMARY | ~2019-12-19 | XMS | Encounter Summary ---
Demographics + + + | Address | [address] | | | [place] [address] | + + + | Home Phone | | + + + | Preferred Language | Unknown | + + + | Marital Status | | + + + | Jehovah'S Witness Affiliation | Unknown | + + + | Race | Unknown | + + + | Ethnic Group | Unknown | + + + Author + + + | Author | [facility] | | | and Jeffana | + + + | Organization | [facility] [...] | | [address] | [place] [address] | | | | | [address] | | | | | | [phone] | | | +--------+ + + + [...] RICHEY | | | | | | [place] [address] | | | | | | [phone] | | | | | | | [...]
--- OUTSIDE RECORDS SUMMARY | ~2019-12-19 | XMS | Encounter Summary ---
Demographics + + + | Address | [address] | | | [place] [address] | + + + | Home Phone [...] Organization | [facility] [...] Providers + +------+ + | Care Production Supervisor Off Shift Name | Role | Phone | + +------+ + PCP | Unavailable | + +------+ + Encounter Details +--------+ + + + + | Date | Type | Department | Care Team | Description | +--------+ + + + + | 11/04/ | Orders Only | [facility] | Conversion | | | 2017 | | NEPHROLOGY JESUS | Transaction, | | | | | [address] | Provider Unknown | | | | | [address] [place] [address] | | | | | | [address] | (Fax) | | | | | [phone] | | | +--------+ + + + [...] RICHEY | | | | | | [place] [address] | | | | | | [phone] | | | | | | | [...]
--- OUTSIDE RECORDS SUMMARY | ~2019-12-19 | XMS | Encounter Summary ---
Demographics + + + | Address | [address] | | | [place] [address] | + + + | Home Phone [...] [place], [place] | | | | | [address] | | + + + + + | Ellie Vang | ECON | Unknown | | + + + + + Care Team Providers + +------+ + | Care Cracking Machine Operator Name | Role | Phone [...] | | bypass | [place], [place] | [facility] Center | | | | | Nausea and | [address] | for Health | | | | | vomiting, | Phone: | and Healing, | | | | | intractabili | | Building 2 | | | | | ty of | Fax: | [place], [place] | | | | | vomiting not | [phone] | [address] | | | | | specified, | | Phone: | | | | | unspecified | | [phone] | | | | | vomiting | | Fax: | | | | | type | | [phone] | | | | | Decreased | [...] | | 2017 | | Center at [facility] [address] | MD [address] | | | | | [address] | [place], [place] | | | | | Mailcode: [place] | [address] | | | | | for Health and | | | | | | [place] [address] | | | | | | [place], [place] | | | | | | [address] | | | | | | [phone] | | | +--------+ + + + [...] Flannery | | | | | | [place], [place] | | | | | | [address] | | | | | | [phone] | | | | | | | [...]
--- OUTSIDE RECORDS SUMMARY | ~2019-12-19 | XMS | Encounter Summary ---
Demographics + + + | Address | [address] | | | [place] [address] | + + + | Home Phone [...] [facility] | | | and [...] + +------+ + | Care Account Development Manager Name | Role | Phone | + +------+ + | Jorje Hill | PCP | | + +------+ + Encounter Details +--------+ + + + + | Date | Type | Department | Care Team | Description | +--------+ + + + + | 06/20/ | Hospital | [facility] | Dharmesh Melchor | Canceled (OTHER) | | 2019 | Encounter | CENTER IR INTRA OP | MD [address] | | | | | [address] | [place] | | | | | [place], [place] | [place] [address] | | | | | [address] | [phone] | | | | | [phone] | | | | | | | Christian Dawson MD | | | | | | [address] | | | | | | [place], [place] | | | | | | [address] | | | | | | | [...] RICHEY | | | | | | [place] [address] | | | | | | [phone] | | | | | | | [...]
--- OUTSIDE RECORDS SUMMARY | ~2019-12-19 | XMS | Encounter Summary ---
Demographics + + + | Address | [address] | | | [place] [address] | + + + | Home Phone [...] [facility] | | [...] Team Providers + +------+ + | Care Cabinetmaker Apprentice Name | Role | Phone | + +------+ + PCP | Unavailable | + +------+ + Encounter Details +--------+ + + + + | Date | Type | Department | Care Team | Description | +--------+ + + + + | 10/14/ | Orders Only | [facility] | Conversion | | | 2017 | | NEPRHOLOGY [place]O | Transaction, | | | | | [address] | Provider Unknown | | | | | [address] [place], [place] | [phone] | | | | | [address] | (Fax) | | | | | [phone] | | | +--------+ + + + [...] RICHEY | | | | | | [place] [address] | | | | | | [phone] | | | | | | | [...]
--- OUTSIDE RECORDS SUMMARY | ~2019-12-19 | XMS | Encounter Summary ---
Demographics + + + | Address | [address] | | | [place] [address] | + + + | Home Phone [...] [place], [place] | | | | | [address] | | + + + + + | Ellie Vang | ECON | Unknown | | + + + + + Care Team Providers + +------+ + | Care Spareribs Trimmer Name | Role | Phone | [...] | Pain | Diagnoses | Tilgner, | Differential Repairer Psych | | | | Management | Morbid | Shereen Murcia ACNP | [address] | | | | | obesity with | [address] | | | | | BMI of [address] | Mailcode: | | | | | and over, | [place], [place] | [address] | | | | | adult ([facility]) | [address] | for Health | | | | | Procedures | Phone: | and Healing, | | | | | CONSULT TO | [phone] | Building 1, | | | | | PAIN | Fax: | 15th Floor | | | | | MANAGEMENT | [phone] | [place], [place] | | | | | [place] | | [address] | | | | | PSYCHIATRIC | | Phone: | | | | | DIAGNOSTIC | | [phone] | | | | | EVAL, NO MED | | Fax: | | | | | [facility] [place] | | [phone] | | | | | PSYCH TSTNG [...] Flannery | PhD [address] | ([facility]); Bipolar | | | | Mailcode: [address] | [address] | affective disorder, | | | | [facility] | [place], [place] | remission status | | | | and Healing, | [address] | unspecified ([facility]); | | | | | [phone] | BMI 60.0-69.9, adult | | | | Floor [place], [place] | | ([facility]); Anxiety | | | | [address] | | | | | | [phone] | | | +--------+---------+ + + + [...] Name: Elzbieta Cristina : 1975 Medical Record: [id number] Age: 42 y.o. Weight today, per patient report: 305 lbs Weight on 09/11/17: 389, BMI 73.54 Identifying Information: Elzbieta Cristina is a 42 y.o. female who lives with her mother in [place], [place]. She was referred for psychological evaluation and counseling on diet and ex ercise prior to bariatric surgery. Informed consent and limits of confidentiality were disc ussed prior to the interview. Surgery interested in: nilehs en y gastric bypass Weight Loss History: [...] of cereal with skim milk and a icelandic yogurt L: white bread and cheese and [...] laundry. For enjoym ent the patient watches [employer] with her girlfriend. She is socially active [...] time I spent was approximately 60 minutes gspt-ro-efui with the patient and approxima tely 2 hours of dnm-wgzo-fv-face testing, interpreting and synthesizing results. Leslie Mistry, PhD Clinical Psychologist [facility] [address] [facility], 15th [place] [address] [phone] signed by Leslie Mistry, PhD at 10/08/2017 12:26 PM PDTdocume nted in this encounter Plan of Treatment +--------+---------+ + + + | Date | Type | Specialty | Care Team | Description | +--------+---------+ + + + | 03/15/ | Office | Cardiology | Randell Franks, | | | 2019 | Visit | | [address] | | | | | | [place], [place] | | | | | | [address] | | | | | | [phone] | | | | | | | [...]
--- OUTSIDE RECORDS SUMMARY | ~2019-12-19 | XMS | Encounter Summary ---
Demographics + + + | Address | [address] | | | [place] [address] | + + + | Home Phone [...] [place], [place] | | | | | [address] | | + + + + + | Ellie Vang | ECON | Unknown | | + + + + + Care Team Providers + +------+ + | Care Warehouse Shipper Name | Role | Phone | + [...] | | | | | [facility] | [address] | | | | | Hospital Admitting | [place], [place] | | | | | Desk Located on the | [address] | | | | | 9th floor | [phone] | | | | | [place], [place] | | | | | | [address] | Marcial Brunner CRNA | | | | | | [address] | | | | | | Lesly Gutiérrez [facility] | | | | | | [place] [address] | | | | | | [phone] | | | | | | | [...] Flannery | | | | | | [place], [place] | | | | | | [address] | | | | | | [phone] | | | | | | | [...]
--- OUTSIDE RECORDS SUMMARY | ~2019-12-19 | XMS | Encounter Summary ---
Demographics + + + | Address | [address] | | | [place] [address] | + + + | Home Phone [...] [place], [place] | | | | | [address] | | + + + + + | Ellie Vang | ECON | Unknown | | + + + + + Care Team Providers + +------+ + | Care Audit Intern Name | Role | Phone | [...] | | | | Mailcode: CH9A | [address] | | | | | [facility] | [phone] | | | | | and Healing, | | | | | | [address] | | | | | | [facility] [place] | | | | | | [address] | | | | | | [phone] | | | +--------+ + + + [...] | | 2019 | Visit | | [address] | | | | | | [place], [place] | | | | | | [address] | | | | | | [phone] | | | | | | | | +--------+---------+ + + + documented as of this encounter Visit Diagnoses Not on filedocumented in this encounter"
--- OUTSIDE RECORDS SUMMARY | ~2019-12-19 | XMS | Encounter Summary ---
Demographics + + + | Address | [address] | | | [place] [address] | + + + | Home Phone [...] [place], [place] | | | | | [address] | | + + + + + | Ellie Vang | ECON | Unknown | | + + + + + Care Team Providers + +------+ + | Care First Mate Name | Role | Phone | [...] | 2017 | | Preventive at [facility] | MD [address] | | | | | [address] | [place], [place] | | | | | Mailcode: [facility] | [address] | | | | | [facility] | [phone] | | | | | and [address]rick | | | | | | [address] | | | | | | [facility] [place] | | | | | | [address] | | | | | | [phone] | | | +--------+ + + + [...] Flannery | | | | | | [place], [place] | | | | | | [address] | | | | | | [phone] | | | | | | | | +--------+---------+ + + + documented as of this encounter Visit Diagnoses Not on filedocumented in this encounter"
--- OUTSIDE RECORDS SUMMARY | ~2019-12-19 | XMS | Encounter Summary ---
Demographics + + + | Address | [address] | | | [place] [address] | + + + | Home Phone [...] | Organization | [facility] | | [...] Providers + +------+ + | Care Training Manager Name | Role | Phone | [...] [place] | | | | | | [address] | | | | | | [phone] | | | +--------+ + + + [...] | | | | | [address] [place] [address] | | | | | | [phone] | | | | | | | | +--------+---------+ + + + documented as of this encounter Visit Diagnoses + + | Diagnosis | + + | Absence of menstruation | + + documented in this encounter"
--- OUTSIDE RECORDS SUMMARY | ~2019-12-19 | XMS | Encounter Summary ---
Demographics + + + | Address | [address] | | | [place] [address] | + + + | Home Phone [...] [place], [place] | | | | | [address] | | + + + + + | Ellie Vang | ECON | Unknown | | + + + + + Care Team Providers + +------+ + | Care Electronic Gluer Name | Role | Phone | + [...] | | | | | [facility] | | | | | | [place], [place] | | | | | | [address] | | | | | | [phone] | | | +--------+ + + + [...] Flannery | | | | | | [place], [place] | | | | | | [address] | | | | | | [phone] | | | | | | | [...] | | | | | | | [place], [place] | | | | | | [address] | | | | | | | [...] | | | | artery. A 5.5 Mongolian | | | | | | Ozzy [...] | | + +---------+ + + | [facility] | | | | | RADIOLOGY | | | | + +---------+ + + documented in this encounter Visit Diagnoses Not on filedocumented in this encounter
--- OUTSIDE RECORDS SUMMARY | ~2019-12-19 | XMS | Encounter Summary ---
Demographics + + + | Address | [address] | | | [place] [address] | + + + | Home Phone [...] Team Providers + +------+ + | Care Aircrewman Name | Role | Phone | + [...] [place] | | | | | | [address] | | | | | | [phone] | | | | | | | | +--------+---------+ + + + documented as of this encounter Visit Diagnoses Not on filedocumented in this encounter"
--- OUTSIDE RECORDS SUMMARY | ~2019-12-19 | XMS | Encounter Summary ---
Demographics + + + | Address | [address] | | | [place] [address] | + + + | Home Phone [...] [place], [place] | | | | | [address] | | + + + + + | Ellie Vang | ECON | Unknown | | + + + + + Care Team Providers + +------+ + | Care Research Attorney Name | Role | Phone | [...] | [facility] | [address] | | | | | Hospital Admitting | [place], [place] | | | | | Desk Located on the | [address] | | | | | 9th floor | [phone] | | | | | [place], [place] | | | | | | [address] | | | +--------+---------+ + + + [...] the gallo. 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 She di d have difficulty [...] condition. She will follow up at the [facility] with Dr. Tiwari in 2- 3 [...] by mouth once daily at bedtime. CALCIUM CRB&ALQ-Z9-PRE63-GENIS ORAL Take 2 tablets by mouth two [...] daily. ASK your doctor about these medications DISPENSER OPERATOR THYROID 30 mg Tab tab Generic [...] the prescribed narcotic-opioid (e.g. oxycodone, hydrocodone, Vicodin, Commiskey, Percocet, Dilaudid) as needed. However, Vicodin/Commiskey and Percocet contain acetam inophen in the [...] Narcotic-opioid pain medications (e.g. oxycodone, hydrocodone, Vicodin, Commiskey, Percocet, Di laudid) can be constipating, therefore you should take a stool softener on the same day as s tarting your narcotic pain medicine. Options include: Milk of Magnesia: 2 Tablespoons Twice daily Colace (=Docusate): 1 pill Twice daily Miralax: 1 Tablespoon (17 grams) daily (check bottle for mixing instructions) While these are some recommendations, any gchf-wzu-qqucbae stool softener should work, and generics are [...] and plan of care. JONES TIWARI MD [facility] [address] [place] [address] documented in this encounter Discharge Instructions Discharge [...] hours by calling the surgery office at [phone]. After hours, weekends and holidays, you may call the hospital nuclear waste process operator at [phone] and have the supervisor special education [facility] for general surgery paged. Discharge Instr [...] the gallo. 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 She did have dif ficulty [...] She will follow up at the [facility] with Dr. Tiwari in weeks. [...] the prescribed narcotic-opioid (e.g. oxycodone, hydrocodone, Vicodin, Commiskey, Percocet, Dilaudid) as needed. However, Vicodin/Commiskey and Percocet contain acetam inophen in the [...] Narcotic-opioid pain medications (e.g. oxycodone, hydrocodone, Vicodin, Commiskey, Percocet, Di laudid) can be constipating, therefore you should take a stool softener on the same day as s tarting your narcotic pain medicine. Options include: Milk of Magnesia: 2 Tablespoons Twice daily Colace (=Docusate): 1 pill Twice daily Miralax: 1 Tablespoon (17 grams) daily (check bottle for mixing instructions) While these are some recommendations, any vsqm-krc-qsiiebp stool softener should work, and generics are fine to use. Increase your fluids, especially your intake of water Increase your activity. Walk frequently. ANTICOAGULATION: We recommend you make an appointment to be seen in your local anticoagulation clinic on Thu08/25/19 to recheck your INR and for ongoing management of your warfarin. FOLLOW-UP: Please call Dr. Tiwari's office ([phone]) to schedule a follow-up appointment for 2-3 [...] | | 0 | | | | CRB&RHH-G3-ZMX66-GEN | mouth two times | | | [...] + + +---------+ + + | thyroid (DISPENSER OPERATOR | Take 30 mg by mouth [...] assist PRN. Anticipate discharge michelle Chandler MD [facility], PGY-1 Green Predatory Hunter Pager: [phone] signed by Jones Tiwari MD at 08/22/2019 [...] Tolerating PO without nausea or vomiting - Uriz removed - urinating after BP 112/64 (BP [...] dc in 2-3 days Gadiel Chandler MD [facility], PGY-1 Green Predatory Hunter Pager: [phone] Associated attestation - Jones Tiwari MD - 08/21/2019 9:57 AM PSTI performed a hist ory and physical examination of the patient and discussed her management with the resident. I reviewed the resident s note and agree with the documented findings and plan of care. JONES TIWARI MD [facility] [address] [place] [address] Valencia Zamora MD - 08/20/2019 8:42 AM [...] well. - ruiz out today - dc FABRICATION OPERATOR - ppx lovenox today - therapeutic lovenox [...] care -Multimodal pain control Joselyn Everett MD [facility] General Surgery PGY1 [id number] Gadiel Armstrong MD - 08/19/2019 12:34 PM [...] hernia repair with mesh Gadiel Chandler MD [facility], PGY-1 Green Predatory Hunter Pager: [phone] documented in this encounter Plan of Treatment +--------+---------+ + + + | Date | Type | Specialty | Care Team | Description | +--------+---------+ + + + | 03/15/ | Office | Cardiology | Aly Franks, | | | 2019 | Visit | | [address] | | | | | | [place], [place] | | | | | | [address] | | | | | | [phone] | | | | | | | [...] [facility] | [address] | [place] [address] | | | SERVICES, CORE | [address] [...] [facility] | [address] | [place] [address] | | | SERVICES, CORE | [address] | | | + + + + + INR (08/22/2019 10:09 AM PST) + +-------+ + + + | Component | Value | Ref Range | Performed | Pathologist | | | | | At | Signature | + +-------+ + + + | INR | 1.08 | 0.90 - 1.20 INR | [facility] | | | | | | [...] | [facility] | [address] | [place] [address] | | | SERVICES, CORE | [address]ARENCE [...] - [facility] | [address] | [place], [place] | | | [place] POINT OF CARE | [address] | [address] | | | TESTS | | | [...] [facility] | [address] | [place], [place] | | | [place] POINT OF CARE | [address] | [address] | | | TESTS | | | [...] [facility] | [address] | [place] [address] | | | SERVICES, | [address] [...] + | [facility] | [address] | [place] [address] | | | SERVICES, | [address] [...] [facility] | [address] | [place], [place] | | | JUSTINE DAWN OF JAKY | [facility] | [address] | | | TESTS | | | [...] | [facility] | | | [facility]RA[facility] | [place] performed by | | LABORATORY | | [...] [facility] | [address] | [place] [address] | | | SERVICES, CORE | CLARENCE [...] | + + + + + | [facility] | [address] | [place] [address] | | | SERVICES, | [address] [...] | [facility] | [address] | [place] [address] | | | SERVICES CORE | CLARENCE [...] [facility] | [address] | [place] [address] | | | LYDIA RANGEL | CLARENCE [...] | [facility] | [address] | [place] [address] | | | SERVICES, LYDIA | CLARENCE [...] [facility] | [address] | [place] [address] | | | SERVICES, CORE | PARK [...] + + + | [facility] | [address] | [place] [address] | | | SERVICES, LYDIA | [address] | | | + + + + + ED INFORMATION EXCHANGE (08/18/2019 1:47 PM PST) + + | Specimen | + + | | + + + + + | Narrative | Performed At | + + + | COLLECTIVE?NOTIFICATION?08/18/2019 13:47?DYLAN ROMERO?MRN: | COLLECTIVE | | [id number] Criteria Met 5 Visits In 12 Months Has | MEDICAL | | Guidelines PDMP Security and Safety No recent Security Events | [employer] | | currently on file ED Care Guidelines from [facility] [facility] | | | Last Updated: 12/06/18 9:53 AM Care Coordination: Receiving | | | mental health services with [employer].? Please contact [employer] for | | | mental health concerns.? Sarah[facility] [place]: [phone]? | | | Kishan: [phone].? These are guidelines and the provider | | | should exercise clinical judgment when providing care. Care | | | History Medical/Surgical 05/24/19 12:00 AM [facility] | | | Hospital PATIENT HAS AN APT ON 06/16/[address] HYLTON. | | | 05/11/19 12:00 AM [facility] Patient is | | | currently established with [facility]. If patient is seen in | | | the ED during business hours. Please contact CHWs at [facility] | | | Clinic. Care Recommendation: [...] care. 08/23/18 12:00 AM | | | [facility] PATIENT HAS A PCP APT TO ESTABLISH | | | CARE ON 10/04/18 @ 10:00AM WITH DR HYLTON. Flags | | | [place] Dis[place] - [place] | | | [place]) to help support Medicaid members with mental | | | illness. [facility] uses claims data with a [...] | are updated weekly. / Attributed By: [facility] (NDA) / | | | Attributed On: 08/09/2019 [...] (12 | | | mo.) Facility Visits [facility] 1 [facility] | | | [facility] 2 [facility] 7 Total 10 Note: | | | Visits indicate total known visits. Recent Emergency Department | | | Visit Summary Date Facility City State Type Diagnoses or Chief | | | Complaint Aug 18, 2019 [facility] [place] | | | [place] Emergency 10,800. amr Jun 25, 2019 [facility] | | | [place] Emergency [facility] [...] drug/meds/biol subst status | | | Other assisted (current) drug therapy Allergy status to | | | penicillin Jun 19, 2019 [facility] [place] | | | material processor (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 Prsnl hx of [...] Jun 01, 2019 | | | [facility] [place] Emergency Headache Allergy | | | status to penicillin Anxiety disorder, unspecified | | | Obesity, unspecified Migraine, unsp, not intractable, without | | | status migrainosus Other manager banking (current) drug therapy | | | Allergy [...] status to penicillin | | | Other manager banking (current) drug therapy Pain in right arm | | | material processor (current) use of aspirin Allergy status to oth | | | drug/meds/biol subst status May 20, 2019 [facility] | | | [place] Emergency Generalized abdominal pain Allergy | | | status to oth drug/meds/biol subst status Unspecified abdominal | | | pain Anxiety disorder, unspecified Other chronic pain | | | Allergy status to penicillin [facility] (current) use of | | | aspirin Prsnl hx of TIA (TIA), and cereb infrc w/o resid | | | deficits Other assisted (current) drug therapy May 13, | | | [address] [facility] [address] [facility] [place] Emergency | | | 10,800. A303 18,400. Bariatric surgery status 18,400. | | | Ventral hernia without obstruction or gangrene 18,400. Nausea | | | with vomiting, unspecified 18,400. Unspecified abdominal pain | | | 18,400. Nonspecific mesenteric lymphadenitis May 10, 2019 [facility] | | | [facility] [facility] [place] Emergency Nausea with vomiting, | | | unspecified Solitary pulmonary nodule Anxiety disorder, | | | unspecified Ventral hernia without obstruction or gangrene | | | Unspecified abdominal pain Diarrhea, unspecified Allergy | | | status to oth drug/meds/biol subst status Prsnl hx of TIA (TIA), | | | and cereb infrc w/o resid deficits Other manager banking (current) | | | drug therapy Allergy status to penicillin December 03, 2018 [facility] | | [facility] [place] [facility] RIGHT LEG PAIN DUE TO FALL | | | Strain of unsp musc/tend at lower leg level, right leg, init | | | Aug 22, 2018 [facility] [place] Emergency Other | | | manager banking (current) drug therapy Upper abdominal pain, | [...] JONES DAVISON D.M.D. Dentist: | | | Examination Supervisor May 23, 2019 - | | | Current Rob Tilley Shopper/Surgical Asst ([id number]) | | | [phone] Mar 27, 2018 - Current Bernard Hylton MD Internal | | | Medicine: Pulmonary Disease Aug 23, 2018 - Current | | | [employer] Portal This patient has registered at the [facility] | | | [facility] Emergency Department For more information | | | visit: | | | [email or web address] | | | [email or web address] a PLEASE NOTE: 1. Any care recommendations [...] or completeness of information provided. ? 2020 [employer] | | | [employer]. - www.[email or web address] | | + + + + + [...] on fileED Care Guidelines | | from [facility] - [place] Updated: 12/06/18 9:53 AM Care Coordination:Receiving | | mental health services with [employer].? Please contact [employer] for mental health | | concerns.? Sarah/Toni Centeno: [phone]? Kishan: [phone].?These are | | guidelines and the provider should exercise clinical judgment when providing care.Care | | HistoryMedical/Zqzzkphl58/29/19 12:00 AM [facility] PATIENT HAS AN APT | | ON 06/16/[address] HYLTON.05/11/19 12:00 AM [facility] Patient is | | currently established with [facility]. If patient is seen in the ED during | | business hours. Please contact CHWs at [facility].Care Recommendation:This | | patient has had [...] providing | | care.08/23/18 12:00 AM [facility] PATIENT HAS A PCP APT TO ESTABLISH CARE | | ON 10/04/18 @ 10:00AM WITH DR HYLTON. Paula [place] Disparity [place] - [place] has | | developed a flag ([place] Dis[place]) to help support Medicaid members with | | mental illness. [facility] uses claims data with a [...] | | updated weekly. / Attributed By: [facility] (NDA) / Attributed On: | | 08/09/2019 Prescription [...] E.D. Visit Count (12 mo.)Facility Visits [facility] 1 [facility] | [facility] 2 [facility] 7 Total 10 Note: Visits indicate | | total known visits. Recent Emergency Department Visit SummaryDate Facility City State | | Type Diagnoses or Chief Complaint Aug 18, 2019 [facility] | | [place] Emergency 10,800. amr Jun 25, 2019 [facility] [place] Emergency | | [facility] (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 Anxiety disorder, unspecified | | Cellulitis of abdominal wall Acute embolism and thrombosis of deep veins of r up | | extrem Nicotine dependence, unspecified, uncomplicated Migraine, unsp, not | | intractable, without status migrainosus Unspecified abdominal pain Allergy status | | to oth drug/meds/biol subst status Other manager banking (current) drug therapy Allergy | | status to penicillin Jun 19, 2019 [facility] [place] Emergency material processor | | (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 Prsnl [...] | | intractable, without status migrainosus Other manager banking (current) drug therapy | | Allergy status to oth drug/meds/biol subst status [facility] (current) use of | | anticoagulants material processor (current) use of aspirin May 23, 2019 [facility] | | [place] Emergency Anxiety disorder, unspecified Acute embolism and thrombosis of | | deep veins of r up extrem Allergy status to penicillin Other manager banking (current) | | drug therapy Pain in right arm material processor (current) use of aspirin Allergy | | status to oth drug/meds/biol subst status May 20, 2019 [facility] [place] | | Emergency Generalized abdominal pain Allergy status to oth drug/meds/biol subst | | status Unspecified abdominal pain Anxiety disorder, unspecified Other chronic | | pain Allergy status to penicillin material processor (current) use of aspirin Prsnl hx | | of TIA (TIA), and cereb infrc w/o resid deficits Other manager banking (current) drug | | therapy May 13, 2019 [facility] [place] Emergency | | [...] infrc w/o resid | | deficits Other assisted (current) drug therapy Allergy status to penicillin May | | 2018 [facility]. [place] Emergency RIGHT LEG PAIN DUE TO FALL | | Strain of unsp musc/tend at lower leg level, right leg, init Aug 22, [address] [facility] [address] [facility] | [facility] [place] Emergency Other manager banking (current) drug therapy Upper | | abdominal [...] 2019 - Current JONES DAVISON D.M.D. Dentist: Examination Supervisor ([id number]) | | [phone] May 23, 2019 - Current Rob Tilley Shopper/Care | | Coordinator Mar 27, 2018 - Current Bernard Hylton MD Internal Medicine: | | Pulmonary Disease Aug 23, 2018 - Current [facility] patient has registered | | at the [facility] Department For more information | | visit: [email or web address] | | PLEASE NOTE: 1. Any care [...] completeness of information | | provided.? 2020 [employer]. - www.[employer] | | Allergy status to oth drug/meds/biol subst status | | Other assisted (current) drug therapy | | Allergy status to penicillin | | | |Jun 19, [address] [facility] [facility] [place] [place] Emergency | | [facility] (current) use [...] unspecified | | | |Jun 01, 2019 [facility] [place] [place] Emergency | | Headache | | Allergy status to penicillin | | Anxiety disorder, unspecified | | Obesity, unspecified | | Migraine, unsp, not intractable, without status migrainosus | | Other manager banking (current) drug therapy | | Allergy status to oth drug/meds/biol subst status | | [facility] (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 | | material processor (current) use of aspirin | | | |May 23, 2019 [facility] [place] Emergency | | Anxiety disorder, unspecified | | Acute embolism and thrombosis of deep veins of r up extrem | | Allergy status to penicillin | | Other manager banking (current) drug therapy | | Pain in right arm | | material processor (current) use of aspirin | | Allergy status to oth drug/meds/biol subst status | | | |May 20, 2019 [facility] [place] Emergency | | Generalized abdominal pain | | Allergy status to oth drug/meds/biol subst status | | Unspecified abdominal pain | | Anxiety disorder, unspecified | | Other chronic pain | | Allergy status to penicillin | | material processor (current) use of aspirin | | Prsnl hx of TIA (TIA), and cereb infrc w/o resid deficits | | Other assisted (current) drug therapy | | | |May 13, [address] [facility] [place] Emergency | | 10,800. A303 | | 18,400. Bariatric surgery status | | 18,400. Ventral hernia without obstruction or gangrene | | 18,400. Nausea with vomiting, unspecified | | 18,400. Unspecified abdominal pain | | 18,400. Nonspecific mesenteric lymphadenitis | | | |May 10, 2019 [facility] [place] Emergency | | Nausea with vomiting, unspecified | | Solitary pulmonary nodule | | Anxiety disorder, unspecified | | Ventral hernia without obstruction or gangrene | | Unspecified abdominal pain | | Diarrhea, unspecified | | Allergy status to oth drug/meds/biol subst status | | Prsnl hx of TIA (TIA), and cereb infrc w/o resid deficits | | Other assisted (current) drug therapy | | Allergy status to penicillin | | | |December 03, 2018 [facility]. [place] Emergency | | RIGHT LEG PAIN DUE TO FALL | | Strain of unsp musc/tend at lower leg level, right leg, init | | | |Aug 22, [address] [facility] [place] [place] Emergency | | Other manager banking (current) drug therapy | | Upper abdominal pain, unspecified | | Bariatric surgery status | | Allergy status to oth drug/meds/biol subst status | | Noninfective gastroenteritis and colitis, unspecified | | Obesity, unspecified | | Anxiety disorder, unspecified | | material processor (current) use of aspirin | | Allergy status to penicillin | | Personal history of pulmonary embolism | | | | | | | |Recent Inpatient Visit Summary | |No recorded inpatient visits. | | | |Care Team | |Provider Specialty Phone Fax Service Dates | |Eagle Nino CHW Community Health Worker Jul 03, 2019 - Current | |JONES DAVISON D.M.D. Dentist: Examination Supervisor May 23, 2 019 - Current | |Rob Tilley Shopper/Surgical Asst Mar 27, 2018 - Current | |Bernard Hylton MD Internal Medicine: Pulmonary Disease Aug 23, 2018 - Current | | | |[employer] Portal | |This patient has registered at the [facility]art[facility] t | |For more information visit: [email or web address] | |PLEASE NOTE: | | 1. Any [...] information provided. | | | |? 2020 [employer] - www.[employer] | + + + + + + + | Performing | Address | City/State/Zipcode | Phone Number | | Organization | | | | + + + + + | [facility] | [address] | [place], [place] | [phone] | | TECHN[employer] | [address] | [address] | | + + + + + [...] | | | First dose on [facility] 08/18/19 at | | PM PST [...] | | | First dose on [facility] 08/18/19 at | | AM PST [...]
--- OUTSIDE RECORDS SUMMARY | ~2019-12-19 | XMS | Encounter Summary ---
Demographics + + + | Address | [address] | | | [place] [address] | + + + | Home Phone [...] [place], [place] | | | | | [address] | | + + + + + | Ellie Vang | ECON | Unknown | | + + + + + Care Team Providers + +------+ + | Care Milling Machine Operator Name | Role | Phone [...] | | | | | | | [place] for | | | | | | | [facility] and | | | | | | | Healing, | | | | | | | Building [address] | | | | | | | [place], [place] | | | | | | | [address] | | | | | | | Phone: | | | | | | | [phone] | | | | | | | Fax: | | | | | | | [phone] | +--------+--------+ + + + + Encounter [...] | | [address] | Ave [place], [place] | adult (HCC) (Primary | | | | Mailcode: Center | [address] | Dx); Vitamin D | | | | for Health and | | deficiency disease; | | | | Healing, Building 2 | | Intertriginous | | | | [place], [place] | | candidiasis; | | | | [address] | | Diabetes mellitus | | | [...] Psychological Evaluation: If your referral is at [facility], pain management will call irma riggs [...] the time. If your referral is at [facility], they will call y ou in the next week to schedule. She will arrange 8. Nephrology Consult: Please call [employer] ([phone]) and have them send you a urine specimen container. You will need to discuss your kidney stone risk with a nephrology provid er prior to proceeding with gastric bypass. If your referral is at [facility], they will call you in [...] at the same time: betsy Feldman RN, [facility]- Nurse Practitioner for Bariatric Surgery [facility] | [address] | [place], [place] | [address] | Potential Contraindications to Bariatric Surgery Age [...] other providers does not guarantee that the [facility] Bariatric Surger y program will deem you a surgical candidate. documented in this encounter Progress Notes Shereen Pinto ACNP - 06/16/2013 1:28 PM PSTFormatting of this note might be different fro m the original. BARIATRIC INITIAL VISIT Provider: Shereen Pinto DNP, DANIELLEP, CRACKING MACHINE OPERATOR Referring Provider: Dr. Fadi Goodrich, [place] [address] [phone] Reason for Requested Consultation: Initial evaluation for bariatric surgery. Elzbieta Farooq is interested in Frandy en y alfredo tomeka bypass. The pt is here With her sister. Following surgery her mother and sister will care for her, she will Stay in [place] after surgery so that she is close by. She lives in [place]. They have few stairs to get into [...] recently gained weight, she met with our used car lot porter today, she has been making poor food [...] none Use of Redux or Phen/fen: no Pentecostal or cultural reason you would refuse blood [...] as well , hypertension, hyperlipidemia. Denies CHF, [place], ischemic heart disease, DVT/PE, or pulmonary hypertension. [...] the therapy. 8. Nephrology Consult: Please call [employer] ([phone]) and have them send you a urine specimen container. You will need to discuss your kidney stone risk with a nephrology provid er prior to proceeding with gastric bypass. If your referral is at [facility], they will call you in the next week to schedule. You are at increased risk of renal stones after surgery, with your history of stone, we want to check of oxalate in your urine. You will need a referral to a trash collector truck driver If your level is elevated. 9. See [...] soon as possible Shereen Pinto DNP ACNP, CRACKING MACHINE OPERATOR Nurse Practitioner for Bariatric Surgery [facility] | [address] | [place] | [address] | Potential Contraindications to Bariatric Surgery Age [...] other providers does not guarantee that the [facility] Bariatric Surger y program will [...] | | | | | | [place], [place] | | | | | | [address] | | | | | | [phone] | | | | | | | [...] | | | | | | by [facility],[address] | | | | | | [place] | | | | | | [address] | | | | | | [phone] | | | | | | pastora, [...] at | | | | | | [facility] [facility] | | | | | | developed and | | | | | | characteristics | | | | | | determined by | | | | | | [facility]. See | | | | | | Compliance Statement B: | | | | | | [place]CS | | | | + + + + + + + + | Specimen | + + | Blood - Blood | + + + + + + + | Performing | Address | City/State/Zipcode | Phone Number | | Organization | | | | + + + + + | [facility] | [address] | [place], [place] | | | [facility] | | [address] | | + + + + + [...]
--- OUTSIDE RECORDS SUMMARY | ~2019-12-19 | XMS | Encounter Summary ---
Demographics + + + | Address | [address] | | | [place] [address] | + + + | Home Phone [...] [place], [place] | | | | | [address] | | + + + + + | Ellie Vang | ECON | Unknown | | + + + + + Care Team Providers + +------+ + | Care Brush Material Preparer Name | Role | Phone | [...] Mailcode:OP14B | | | | | | [facility] | | | | | | [place], [place] | | | | | | [address] | | | | | | [phone] | | | +--------+ + + + [...] [address] | | | | | | [place], [place] | | | | | | [address] | | | | | | [phone] | | | | | | | [...] | | | | | | | [place], [place] | | | | | | [address] | | | | | | | [...] | | | | artery. A 5.5 Frisian | | | | | | Ozzy [...] | + +---------+ + + | [facility] | | | | | RADIOLOGY | | | | + +---------+ + + documented in this encounter Visit Diagnoses Not on filedocumented in this encounter
--- OUTSIDE RECORDS SUMMARY | ~2019-12-19 | XMS | Encounter Summary ---
Demographics + + + | Address | [address] | | | [place] [address] | + + + | Home Phone [...] [place], [place] | | | | | [address] | | + + + + + | Ellie Vang | ECON | Unknown | | + + + + + Care Team Providers + +------+ + | Care Reptile Keeper Name | Role | Phone | + +------+ + | Kenyatta Cardenas MD | PCP | | + +------+ + Encounter Details +--------+ + + + + | Date | Type | Department | Care Team | Description | +--------+ + + + + | 05/28/ | Phillip | NKECHI DUMAS at [facility] | Lab, Gi Procedure | | | 2018 | on | [address] | | | | | | [address] Mailcode: | | | | | | OC2L [facility] | | | | | | Health and Healing, | | | | | | [facility] 2 | | | | | | [place], [place] | | | | | | [address] | | | | | | [phone] | | | +--------+ + + + [...] | | 2019 | Visit | | [address] | | | | | | [place], [place] | | | | | | [address] | | | | | | [phone] | | | | | | | | +--------+---------+ + + + documented as of this encounter Visit Diagnoses Not on filedocumented in this encounter"
--- OUTSIDE RECORDS SUMMARY | ~2019-12-19 | XMS | Encounter Summary ---
Demographics + + + | Address | [address] | | | [place] [address] | + + + | Home Phone [...] [place], [place] | | | | | [address] | | + + + + + | Ellie Vang | ECON | Unknown | | + + + + + Care Team Providers + +------+ + | Care Director Audience Marketing Name | Role | Phone | [...] | | 2019 | | Center at [facility] [address] | | Review | | | | [address] | | | | | | Mailcode: [place] | | | | | | [facility] and | | | | | | [facility] 2 | | | | | | [place], [place] | | | | | | [address] | | | | | | [phone] | | | +--------+ + + + [...] [address] | | | | | | [place] | | | | | | [address] | | | | | | [phone] | | | | | | | | +--------+---------+ + + + documented as of this encounter Visit Diagnoses Not on filedocumented in this encounter"
--- OUTSIDE RECORDS SUMMARY | ~2019-12-19 | XMS | Encounter Summary ---
Demographics + + + | Address | [address] | | | [place] [address] | + + + | Home Phone [...] [place], [place] | | | | | [address] | | + + + + + | Ellie Vang | ECON | Unknown | | + + + + + Care Team Providers + +------+ + | Care Opener Verifier Packer Customs Name | Role | Phone | + [...] 2019 | | Preventive at [facility] | MD [address] | re-test? ) | | | | [address] | [place], [place] | | | | | Mailcode: EARL | [address] | | | | | [facility] | [phone] | | | | | and [place], | | | | | | Building [address] | | | | | | [place], [place] | | | | | | [address] | | | | | | [phone] | | | +--------+ + + + [...] [place] | | | | | | [address] | | | | | | [phone] | | | | | | | [...]
--- OUTSIDE RECORDS SUMMARY | ~2019-12-19 | XMS | Encounter Summary ---
Demographics + + + | Address | [address] | | | [place] [address] | + + + | Home Phone [...] [place], [place] | | | | | [address] | | + + + + + | Ellie Vang | ECON | Unknown | | + + + + + Care Team Providers + +------+ + | Care Director Global Medical Affairs Name | Role | Phone | [...] | | [address] | [facility] [place] | | | | | Mailcode: CH9A | [address] | | | | | [facility] | [phone] | | | | | and Healing, | | | | | | Building [address] | | | | | | [facility] [place] | | | | | | [address] | | | | | | [phone] | | | +--------+ + + + [...] | | 2019 | Visit | | [address] | | | | | | [place], [place] | | | | | | [address] | | | | | | [phone] | | | | | | | | +--------+---------+ + + + documented as of this encounter Visit Diagnoses Not on filedocumented in this encounter"
--- OUTSIDE RECORDS SUMMARY | ~2019-12-19 | XMS | Encounter Summary ---
Demographics + + + | Address | [address] | | | [place] [address] | + + + | Home Phone [...] [place], [place] | | | | | [address] | | + + + + + | Ellie Vang | ECON | Unknown | | + + + + + Care Team Providers + +------+ + | Care Wreath Inspector Name | Role | Phone | + +------+ + PCP | Unavailable | + +------+ + Encounter Details +--------+ + + + + | Date | Type | Department | Care Team | Description | +--------+ + + + + | 05/13/ | Results | | Other, Faculty | | | 1992 | Only | | [phone] | | +--------+ + + + + [...] [address] | | | | | | [place], [place] | | | | | | [address] | | | | | | [phone] | | | | | | | [...] | | | | | | | [id number] SCAN OF | | | | | [...] | | + +---------+ + + | [facility] DEPARTMENT | | | | | RADIOLOGY | | | | + +---------+ + + documented in this encounter Visit Diagnoses Not on filedocumented in this encounter"
--- OUTSIDE RECORDS SUMMARY | ~2019-12-19 | XMS | Encounter Summary ---
Demographics + + + | Address | [address] | | | [place] [address] | + + + | Home Phone [...] [place], [place] | | | | | [address] | | + + + + + | Ellie Vang | ECON | Unknown | | + + + + + Care Team Providers + +------+ + | Care Postdoctoral Fellow Name | Role | Phone | + [...] | BROCK Roldan | | | with PATTERNMAKER APPRENTICE METAL | | hypertension | [address] | | | | | Right | [address] | [place] | | | | | heart | [place], [place] | [place], | | | | | failure | [address] | [place] | | | | | ([facility]) Type | Phone: | [address] | | | | | 2 diabetes | [phone] | | | | | | mellitus | Fax: | | | | | | without | [phone] | | | | | | complication | | | | | | | , with | | | | | | | long-term | | | | | | | current use | | | | | | | of insulin | | | | | | | ([facility]) | | | +--------+ + + + + + Encounter Details +--------+---------+ + + + | Date | Type | Department | Care Team | Description | +--------+---------+ + + + | 04/01/ | Office | Digestive Health | Dione Andre, | History of Frandy-en-Y | | 2018 | Visit | Center at [facility] [address] | [address] [facility] | gastric bypass | | | | [facility] | [facility] [address] | (Primary Dx); | | | | for [place] and | [place], [place] | 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[facility] 2 | [address] | with insulin therapy | | | | [place], [place] | | ([facility]) | | | | [address] | | | | | | [phone] | | | +--------+---------+ + + + [...] Follow-Up Patient referred by: Randell Franks MD [address] [place] [address] Documented time of visit: 10:33 to 10:55 (22 minutes yxax-sq-djdc with patient) Surgery: Gastric Bypass Date of [...] rhinitis Anemia Anxiety Bipolar disorder ([facility]) Chronic wound infection of abdomen from 2010 Cough Depression Diverticulitis of colon Dizziness Glaucoma Heart burn Hemorrhoids Hernia of abdominal wall Incisional hernia, incarcerated 2012 Insomnia Irregular periods Kidney stone Leaking of urine Leg sore Lymphedema Morbid obesity with body mass index of 70 and over in adult ([facility]) Myalgia and myositis Nausea Neck pain Numbness Osteoarthritis of knee Palpitations Pneumonia Shortness of breath Staphylococcal infection Stroke ([facility]) TIA (transient ischemic attack) due to Bromocriptine Tinea corporis UTI (urinary tract infection) Food logs: Yes-pen and paper Food choices: ground chicken, eggs, creamed soups (mushroom or tomato), cream of wheat occ, cottage cheese, guatemalan yogurt-light and fit, protein bar from [employer]. Unable to keep protei n shakes down. Fluid choices: water-4-5 bottles per day Supplementation: Flinstones, iron, vitamin D, vitamin C, Citracal supplement x 2 in the mor eusebio and 2 at night, magnesium, potassium, Q50-ztdamory today Assessment: Vomiting likely due to volume [...] multivitamin & mineral (with iron) supplement, 2/day -7660-9191 mg calcium citrate with vitamin D/day (take in divided doses, not within 2 hour s of multivitamin or iron supplement) -500 mcg/day sublingual B12 supplement (or monthly injections) Continued to reinforce importance of mindful eating. Continue to increase physical activity. Follow up in [address],[place] Pager# [phone] Phone: [phone] documented in this en counter Plan of Treatment +--------+---------+ + + + | Date | Type | Specialty | Care Team | Description | +--------+---------+ + + + | 03/15/ | Office | Cardiology | Randell Franks, | | | 2019 | Visit | | [address] | | | | | | [place], [place] | | | | | | [address] | | | | | | [phone] | | | | | | | [...]
--- OUTSIDE RECORDS SUMMARY | ~2019-12-19 | XMS | Encounter Summary ---
Demographics + + + | Address | [address] | | | [place] [address] | + + + | Home Phone [...] [place], [place] | | | | | [address] | | + + + + + | Ellie Vang | ECON | Unknown | | + + + + + Care Team Providers + +------+ + | Care Woods Rider Name | Role | Phone | [...] | 2012 | | Center at [facility] [address] | MD [address] | | | | | [address] | [facility] | | | | | Mailcode: [place] | [place], [place] | | | | | [facility] and | [address] | | | | | [facility], [facility] 2 | [phone] | | | | | [place], [place] | | | | | | [address] | | | | | | [phone] | | | +--------+ + + + [...] [address] | | | | | | [place], [place] | | | | | | [address] | | | | | | [phone] | | | | | | | | +--------+---------+ + + + documented as of this encounter Visit Diagnoses Not on filedocumented in this encounter"
--- OUTSIDE RECORDS SUMMARY | ~2019-12-19 | XMS | Encounter Summary ---
Demographics + + + | Address | [address] | | | [place] [address] | + + + | Home Phone [...] [place], [place] | | | | | [address] | | + + + + + | Ellie Vang | ECON | Unknown | | + + + + + Care Team Providers + +------+ + | Care Chief Librarian Branch Name | Role | Phone | + [...] [place] | | | | | | [address] | | | | | | [phone] | | | | | | | | +--------+---------+ + + + documented as of this encounter Visit Diagnoses Not on filedocumented in this encounter"
--- OUTSIDE RECORDS SUMMARY | ~2019-12-19 | XMS | Encounter Summary ---
Demographics + + + | Address | [address] | | | [place] [address] | + + + | Home Phone [...] [place], [place] | | | | | [address] | | + + + + + [...] | | 2014 | | Center at [facility] [address] | [address] | (11/03 and 11/06 phone | | | | [address] [facility] | Lesly Gutiérrez [place], | calls) | | | | for Health and | [place] [address] | | | | | [facility], [facility] 2 | | | | | | [place], [place] | | | | | | [address] | | | | | | [phone] | | | +--------+ + + + [...] [address] | | | | | | [place], [place] | | | | | | [address] | | | | | | [phone] | | | | | | | | +--------+---------+ + + + documented as of this encounter Visit Diagnoses Not on filedocumented in this encounter"
--- OUTSIDE RECORDS SUMMARY | ~2019-12-19 | XMS | Encounter Summary ---
Demographics + + + | Address | [address] | | | [place] [address] | + + + | Home Phone [...] Author | [facility] | | | and [place]ana | + + + | Organization | [facility] | | | and [...] Providers + +------+ + | Care Icu Tech Name | Role | Phone | + +------+ + PCP | Unavailable | + +------+ + Encounter Details +--------+ + + + + | Date | Type | Department | Care Team | Description | +--------+ + + + + | 03/31/ | Orders Only | [facility] | Dharmesh Escobar, | | | 2016 | | NEPHROLOGY [place] | SERVICE LINE LAYER [address] | | | | | [address] | [address] | | | | | [address] [place], [place] | [place] | | | | | [address] | [address] | | | | | [phone] | [phone] | | | | | | | [...] F | | | | | | [place] [address] | | | | | | [phone] | | | | | | | [...] | | | LAB | | | BRUNEIAN | | | | | + +---------+ [...]
--- OUTSIDE RECORDS SUMMARY | ~2019-12-19 | XMS | Encounter Summary ---
Demographics + + + | Address | [address] | | | [place] [address] | + + + | Home Phone [...] [place], [place] | | | | | [address] | | + + + + + | Ellie Vang | ECON | Unknown | | + + + + + Care Team Providers + +------+ + | Care Field Cane Scaler Name | Role | Phone | [...] Center at [facility] [address] | [address] [facility] | obesity ([facility]), BMI | | | | [facility] | [facility] [address] | 88 (Primary Dx); | | | | for [employer] and | [place], [place] | Type 2 diabetes | | | | [facility], [facility] [address] | [address] | mellitus without | | | | [place], [place] | | complication, with | | | | [address] | | long-term current | | | | [phone] | | use of insulin | | | | | | ([facility]); S/P gastric | | | [...] Patient referred by: [place] [address] Documented time of visit: 1:30 to 2:00 (30 minutes qbgb-vx-qefj with patient) Surgery: Gastric Bypass Date of [...] vagina Allergic rhinitis Anemia Anxiety Bipolar disorder ([facility]) Chronic wound infection of abdomen [...] Pneumonia Shortness of breath Staphylococcal infection Stroke ([facility]) TIA (transient ischemic attack) due [...] multivitamin & mineral (with iron) supplement, 2/day -7545-9860 mg calcium citrate with vitamin D/day (take [...] in [address],[place] Pager# [phone] Phone: [phone] documented in this en counter Plan of Treatment +--------+---------+ + + + | Date | Type | Specialty | Care Team | Description | +--------+---------+ + + + | 03/15/ | Office | Cardiology | Randell Franks, | | | 2019 | Visit | | [address] | | | | | | [place], [place] | | | | | | [address] | | | | | | [phone] | | | | | | | | +--------+---------+ + + + documented as of this encounter Procedures + +--------+ + + + | Procedure Name | Priori | Date/Time | Associated Diagnosis | Comments | | | ty | | | | + +--------+ + + + | [place] MNT RE-ASSESSMNT | Routin | 03/10/2018 | [...] | | | | use of insulin ([facility]) | | | | | [...]
--- OUTSIDE RECORDS SUMMARY | ~2019-12-19 | XMS | Encounter Summary ---
Demographics + + + | Address | [address] | | | [place] [address] | + + + | Home Phone [...] [place], [place] | | | | | [address] | | + + + + + | Ellie Vang | ECON | Unknown | | + + + + + Care Team Providers + +------+ + | Care Sales Management Intern Name | Role | Phone [...] 2015 | | Center at [facility] [address] | ACNP [address] | | | | | [address] | [place], [place] | | | | | Mailcode: [place] | [address] | | | | | for Health and | | | | | | [facility] 2 | | | | | | [facility] [place] | | | | | | [address] | | | | | | | [...] | | 2019 | Visit | | [address] | | | | | | [place], [place] | | | | | | [address] | | | | | | [phone] | | | | | | | | +--------+---------+ + + + documented as of this encounter Visit Diagnoses Not on filedocumented in this encounter"
--- OUTSIDE RECORDS SUMMARY | ~2019-12-19 | XMS | Encounter Summary ---
[...] [place], [place] | | | | | [address] | | + + + + + | Ellie Vang | ECON | Unknown | | + + + + + Care Team Providers + +------+ + | Care Database Programmer Name | Role | Phone | [...] floor | | | | | | [place], [place] | | | | | | [address] | | | +--------+ + + + [...] [address] | | | | | | [place], [place] | | | | | | [address] | | | | | | [phone] | | | | | | | | +--------+---------+ + + + documented as of this encounter Visit Diagnoses Not on filedocumented in this encounter"
--- OUTSIDE RECORDS SUMMARY | ~2019-12-19 | XMS | Encounter Summary ---
Demographics + + + | Address | [address] | | | [place] [address] | + + + | Home Phone [...] [place], [place] | | | | | [address] | | + + + + + | Ellie Vang | ECON | Unknown | | + + + + + Care Team Providers + +------+ + | Care Heavy Duty Truck Mechanic Name | Role | Phone | [...] | | | | | | [place], [place] | | | | | | [address] | | | | | | [phone] | | | +--------+ + + + [...] | | | | | | [place], [place] | | | | | | [address] | | | | | | [phone] | | | | | | | | +--------+---------+ + + + documented as of this encounter Visit Diagnoses Not on filedocumented in this encounter"
--- OUTSIDE RECORDS SUMMARY | ~2019-12-19 | XMS | Encounter Summary ---
Demographics + + + | Address | [address] | | | [place] [address] | + + + | Home Phone [...] [place], [place] | | | | | [address] | | + + + + + | Ellie Vang | ECON | Unknown | | + + + + + Care Team Providers + +------+ + | Care Pushcart Peddler Name | Role | Phone | + [...] [address] Mailcode: | [place], [place] | | | | | CH3G [facility] | [address] | | | | | Health and Healing, | [phone] | | | | | [address] | | | | | | Floor [facility] [place] | | | | | | [address] | | | | | | [phone] | | | +--------+ + + + [...] | | 0 | | | | [id number] | mouth two times | | | [...] | | | | | | [place], [place] | | | | | | [address] | | | | | | [phone] | | | | | | | [...]
--- OUTSIDE RECORDS SUMMARY | ~2019-12-19 | XMS | Encounter Summary ---
Demographics + + + | Address | [address] | | | [place] [address] | + + + | Home Phone [...] [place], [place] | | | | | [address] | | + + + + + | Ellie Vang | ECON | Unknown | | + + + + + Care Team Providers + +------+ + | Care Principal Software Engineer Name | Role | Phone [...] | | 2019 | | Preventive at [facility] | [address] | | | | | [address] | [place], [place] | | | | | Mailcode: CH9A | [address] | | | | | [facility] | [phone] | | | | | and Healing, | | | | | | Building [address] | | | | | | [place], [place] | | | | | | [address] | | | | | | [phone] | | | +--------+ + + + [...] [place] | | | | | | [address] | | | | | | [phone] | | | | | | | | +--------+---------+ + + + documented as of this encounter Visit Diagnoses Not on filedocumented in this encounter"
--- OUTSIDE RECORDS SUMMARY | ~2019-12-19 | XMS | Encounter Summary ---
Demographics + + + | Address | [address] | | | [place] [address] | + + + | Home Phone [...] Providers + +------+ + | Care Information Systems Security Officer Name | Role | Phone | [...] [place] | | | | | | [address] | | | | | | [phone] | | | | | | | | +--------+---------+ + + + documented as of this encounter Visit Diagnoses Not on filedocumented in this encounter"
--- OUTSIDE RECORDS SUMMARY | ~2019-12-19 | XMS | Encounter Summary ---
Demographics + + + | Address | [address] | | | [place] [address] | + + + | Home Phone [...] [place], [place] | | | | | [address] | | + + + + + | Ellie Vang | ECON | Unknown | | + + + + + Care Team Providers + +------+ + | Care Winding Rack Operator Name | Role | Phone | [...] | | | | | | [place], [place] | | | | | | [address] | | | | | | [phone] | | | +--------+ + + + [...] [place] | | | | | | [address] | | | | | | [phone] | | | | | | | | +--------+---------+ + + + documented as of this encounter Visit Diagnoses Not on filedocumented in this encounter"
--- OUTSIDE RECORDS SUMMARY | ~2019-12-19 | XMS | Encounter Summary ---
Demographics + + + | Address | [address] | | | [place] [address] | + + + | Home Phone [...] [place], [place] | | | | | [address] | | + + + + + | Ellie Vang | ECON | Unknown | | + + + + + Care Team Providers + +------+ + | Care Final Finisher Forging Dies Name | Role | Phone | + [...] Encounter | Procedural Unit | MD Barb [address] | | | | | ([facility]) at [facility] [address] [place], [place] | | | | | [address] | [address] | | | | | Mailcode: Ira | [phone] | | | | | for Health and | | | | | | Healing, Building [address] | | | | | | [place], [place] | | | | | | [address] | | | | | | [phone] | | | +--------+ + + + [...] hours or on weekends and holiday Hospital Sports Physiotherapist toll free [phone] ext. [phone] and have the GI doctor puff ironer paged. The provider who performed your procedure: [...] | | 0 | | | | CRB&KCN-O9-FMR49-GEN | mouth two times | | | [...] from the original. PRE PROCEDURE NOTE: MR# [id number] Subjective: Elzbieta Cristina is a 44 y.o. [...] [address]ann[address] | | | | | | [place], [place] | | | | | | [address] | | | | | | [phone] | | | | | | | [...] + | MRN: | [facility] | | [id number] Date: 04/07/2019Patient Name: Elzbieta Curtis #: | ENDOSCOPY | | [id number] of : 1975CSN: [id number] Type: | | | AmbulatoryRoom: Endo 5Procedure: Upper GI | | | endoscopyIndications: Generalized abdominal pain, Nausea | | | with vomitingProviders: TAL LUND MD | | | (Doctor), KEERTHI BERNARD RN (Nurse), | | | [facility] (Thinner Sprayer)Referring MD: SYLVIA Kilpatrick | | | Mela [...] | | | The Olympus [id number] Endoscope #[id number] | | | was introduced through the [...] | | | | ONCE, 1 dose, [facility] 04/07/19 at 1300 | | | | [...] 11:18 | | | | | Starting [facility] 04/07/19 at 1118, | | AM PDT | | | | | Until [facility] 04/07/19 at 1118 | | | | | | + +-------+ +--------+---+---+ +---+---+ | | | +---+---+ + +-------+ +-------+---+---+ | lidocaine viscous (XYLOCAINE | Given | 04/07/20 | 15 mL | | | | VISCOUS) 2 % mucosal solution | | 19 12:35 | | | | | Mouth/Throat, INTRAPROCEDURE PRN, | | PM PDT | | | | | Starting [facility] 04/07/19 at 1104, | | | | | | | Until [facility] 04/07/19 at 1235 | | | | [...]
--- OUTSIDE RECORDS SUMMARY | ~2019-12-19 | XMS | Encounter Summary ---
Demographics + + + | Address | [address] | | | [place] [address] | + + + | Home Phone [...] [place], [place] | | | | | [address] | | + + + + + | Ellie Vang | ECON | Unknown | | + + + + + Care Team Providers + +------+ + | Care Flat Folding Machine Operator Name | Role | Phone [...] | 2015 | Visit | Center at [facility] [address] | (Primary Dx); | | | | [address] [place] | [address] | 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for Sociogram[employer] and | [place], [place] | with insulin therapy | | | | [facility] 2 | [address] | (HCC) | | | | [place], [place] | [phone] | | | | | [address] | | | | | | [phone] | | | +--------+---------+ + + + [...] of Visit: 1:30 to 1:55 (25 minutes gwsv-pd-kkjr with patient). Pt seen tog ether with Rossana Espinoza RD (training) SUBJECTIVE: Working with RN to get access to [employer] water exercises. States she was down to 374lbs by following LRD but with complications (n/v, fainting) - need to obtain records from PCP [facility]. Food Allergies: No Current Physical Activity: Nothing - plans to start swimming this week Diet Recall [place] (100kcal) + Activia Light - 60kcal Atkins [...] post-surgery diet progression. 4. Call or send [employer] message to dietitian with any questions. Contact information was provided. Follow up with dietitian via telephone 1 week after beginning water exercises for weight ch addie. Yuli Childs RD, [facility], LD Pager# [phone] Rossana Espinoza MS, RD Pgr #[phone] documented in this enco unter Plan of Treatment +--------+---------+ + + + | Date | Type | Specialty | Care Team | Description | +--------+---------+ + + + | 03/15/ | Office | Cardiology | Randell Franks, | | | 2019 | Visit | | MD [address] | | | | | | [place], [place] | | | | | | [address] | | | | | | [phone] | | | | | | | | +--------+---------+ + + + documented as of this encounter Procedures + +--------+ + + + | Procedure Name | Priori | Date/Time | Associated Diagnosis | Comments | | | ty | | | | + +--------+ + + + | ID MNT RE-ASSESSMNT | Routin | 12/27/2014 | [...]
--- OUTSIDE RECORDS SUMMARY | ~2019-12-19 | XMS | Encounter Summary ---
Demographics + + + | Address | [address] | | | [place] [address] | + + + | Home Phone [...] [place], [place] | | | | | [address] | | + + + + + | Ellie Vang | ECON | Unknown | | + + + + + Care Team Providers + +------+ + | Care Airworthiness Safety Inspector Name | Role | Phone | [...] [place] | | | | | | [address] | | | | | | [phone] | | | | | | | | +--------+---------+ + + + documented as of this encounter Visit Diagnoses Not on filedocumented in this encounter"
--- OUTSIDE RECORDS SUMMARY | ~2019-12-19 | XMS | Encounter Summary ---
Demographics + + + | Address | [address] | | | [place] [address] | + + + | Home Phone [...] [place], [place] | | | | | [address] | | + + + + + | Ellie Vang | ECON | Unknown | | + + + + + Care Team Providers + +------+ + | Care Canoe Builder Name | Role | Phone | [...] | | [facility] | [address] | | | | | Hospital Admitting | [place], [place] | | | | | Desk Located on the | [address] | | | | | 9th floor | [phone] | | | | | [place], [place] | | | | | | [address] | Graham Honeycutt, | | | | | | HISTORICAL SITE GUIDE [address] | | | | | | [address] | | | | | | [place], [place] | | | | | | [address] | | | | | | [phone] | | | | | | | [...] quadrant; 08/18/19; | Ethel Brito RN | Orqiudea Parks RN | | | 1534 | [...] | | Endotracheal Tube; 7; Oral; | HISTORICAL SITE GUIDE | HISTORICAL SITE GUIDE | | | Cuffed; 06/23/18; 1542 | [...] [place] | | | | | | [address] | | | | | | [phone] | | | | | | | [...]
--- OUTSIDE RECORDS SUMMARY | ~2019-12-19 | XMS | Encounter Summary ---
Demographics + + + | Address | [address] | | | [place] [address] | + + + | Home Phone [...] [place], [place] | | | | | [address] | | + + + + + | Ellie Vang | ECON | Unknown | | + + + + + Care Team Providers + +------+ + | Care Cardiology Specialist Name | Role | Phone | [...] | | | | | | [address] [place], [place] | | | | | | [address] | | | | | | [phone] | | | +--------+ + + + [...] [address] | | | | | | [place], [place] | | | | | | [address] | | | | | | [phone] | | | | | | | | +--------+---------+ + + + documented as of this encounter Visit Diagnoses Not on filedocumented in this encounter"
--- OUTSIDE RECORDS SUMMARY | ~2019-12-19 | XMS | Encounter Summary ---
Demographics + + + | Address | [address] | | | [place] [address] | + + + | Home Phone [...] [place], [place] | | | | | [address] | | + + + + + [...] Surgery | | | 2017 | | [place] [facility] [address] | | | | | | [address] | | | | | | Mailcode: [place] | | | | | | [facility] | | | | | | [facility] 2 | | | | | | [place], [place] | | | | | | [address] | | | | | | [phone] | | | +--------+ + + + [...] [address]ann[address] | | | | | | [place], [place] | | | | | | [address] | | | | | | [phone] | | | | | | | | +--------+---------+ + + + documented as of this encounter Visit Diagnoses Not on filedocumented in this encounter"
--- OUTSIDE RECORDS SUMMARY | ~2019-12-19 | XMS | Encounter Summary ---
Demographics + + + | Address | [address] | | | [place] [address] | + + + | Home Phone [...] [place], [place] | | | | | [address] | | + + + + + [...] | | 2020 | | Center at [facility] [address] | MD [address] | | | | | [address] | [address] | | | | | Mailcode: Center | [place], [place] | | | | | [facility] and | [address] | | | | | [facility] 2 | [phone] | | | | | [place], [place] | | | | | | [address] | | | | | | [phone] | | | +--------+ + + + [...] [place] | | | | | | [address] | | | | | | [phone] | | | | | | | | +--------+---------+ + + + documented as of this encounter Visit Diagnoses Not on filedocumented in this encounter"
--- OUTSIDE RECORDS SUMMARY | ~2019-12-19 | XMS | Encounter Summary ---
Demographics + + + | Address | [address] | | | [place] [address] | + + + | Home Phone [...] [place], [place] | | | | | [address] | | + + + + + | Ellie Vang | ECON | Unknown | | + + + + + Care Team Providers + +------+ + | Care Motor Rebuilder Name | Role | Phone | [...] | | | | | | [address] [place], [place] | | | | | | [address] | | | | | | [phone] | | | +--------+ + + + [...] [address]ann[address] | | | | | | [place], [place] | | | | | | [address] | | | | | | [phone] | | | | | | | | +--------+---------+ + + + documented as of this encounter Visit Diagnoses Not on filedocumented in this encounter"
--- OUTSIDE RECORDS SUMMARY | ~2019-12-19 | XMS | Encounter Summary ---
Demographics + + + | Address | [address] | | | [place] [address] | + + + | Home Phone [...] [place], [place] | | | | | [address] | | + + + + + | Ellie Vang | ECON | Unknown | | + + + + + Care Team Providers + +------+ + | Care Box Press Operator Name | Role | Phone [...] Care Coordination | | 2019 | | [place] at [facility] [address] | [address] | (follow up) | | | | [address] | [address] | | | | | Mailcode: [place] | [place], [place] | | | | | [facility] and | [address] | | | | | [place] [address] | [phone] | | | | | [place], [place] | | | | | | [address] | | | | | | [phone] | | | +--------+ + + + [...] Flann[address] | | | | | | [place], [place] | | | | | | [address] | | | | | | [phone] | | | | | | | | +--------+---------+ + + + documented as of this encounter Visit Diagnoses Not on filedocumented in this encounter"
--- OUTSIDE RECORDS SUMMARY | ~2019-12-19 | XMS | Encounter Summary ---
Demographics + + + | Address | [address] | | | [place] [address] | + + + | Home Phone [...] [place], [place] | | | | | [address] | | + + + + + | Ellie Vang | ECON | Unknown | | + + + + + Care Team Providers + +------+ + | Care Lead Python Developer Name | Role | Phone | [...] | | | | [facility] | [address] | | | | | Hospital Admitting | [place], [place] | | | | | Desk Located on the | [address] | | | | | 9th floor | [phone] | | | | | [place], [place] | | | | | | [address] | Graham Honeycutt, | | | | | | SILK SCREEN REPAIRER [address] | | | | | | [address] | | | | | | [place], [place] | | | | | | [address] | | | | | | [phone] | | | | | | | | +--------+ + + + + Anesthesia Record + + + + + | Procedure Name | Responsible | Anesthesia Start | Anesthesia Stop Time | | | Anesthesiologist | Time | | + + + + + | UPPER ENDOSCOPY (N/A | Joann Paalcios | 06/23/18 1506 | 06/23/18 1551 | [...] | | Endotracheal Tube; 7; Oral; | SILK SCREEN REPAIRER | SILK SCREEN REPAIRER | | | Cuffed; 06/23/18; 1542 | [...] | | | | | | [place], [place] | | | | | | [address] | | | | | | [phone] | | | | | | | [...]
--- OUTSIDE RECORDS SUMMARY | ~2019-12-19 | XMS | Encounter Summary ---
[...] [place], [place] | | | | | [address] | | + + + + + | Ellie Vang | ECON | Unknown | | + + + + + Care Team Providers + +------+ + | Care Web Marketing Analyst Name | Role | Phone | [...] 2017 | | [address] | [address] | Y [facility]STR[facility]PASS | | | | [facility] | [place], [place] | | | | | Hospital Admitting | [address] | | | | | Desk Located on the | [phone] | | | | | 9th floor | | | | | | [place], [place] | | | | | | [address] | | | +--------+---------+ + + + [...] - 03/03/2018 9:49 AM PDT [facility] RED SURGERY INPATIENT DISCHARGE SUMMARY Author: KAIN [...] to a bariatric full liquid diets. [facility] dietitian was consulted and they discussed her [...] at minimum. 5. Follow with PCP for Railroad Police Officer within 1 - 2 weeks of discharge [...] mg by mouth two times daily. CALCIUM CRB&ZMG-T6-MIP94-GENIS ORAL Take 2 tablets by mouth two [...] yogurt or kefir. Zaria's Yogurt or Kefir, OPAL Therapeuticsfield Yogurt, and Cell Medican i Togolese Yogurt are common brands with beneficial probiotics. [...] over the counter at most [facility] stores. Nausea/Vomiting/Difficulty Swallowing Nausea/Vomiting/Difficulty swallowing: Could be [...] hours per your instructions. Some medications, like [employer], have Tylenol in it. Make sure you [...] (PCP) as this clinic does not [facility]. When to [...] hours by calling the surgery office at [phone]. - After hours, weekends and holidays, you may call the hospital breakdown mill operator at [phone] an d have the nuclear radiation engineer Red Surgery Team paged. OTHER DISCHARGE [...] at minimum. 5. Follow with PCP for Railroad Police Officer within 1 - 2 weeks of discharge [...] Department Dept Phone Center 03/10/2018 1:30 PM [facility] at [facility] 6th Floor [phone] FO OD AND NUT 03/10/2018 3:05 PM Ronna Clarke Digest[facility] at [facility] 6th Floor [phone] [facility] 04/01/2018 10:30 AM [facility] at [facility] 6th Floor [phone] FO OD AND NUT 04/01/2018 11:00 AM Ion Castanon Digestive [facility] at [facility] 6th Floor [phone] [facility] 05/27/2018 2:30 PM [facility] at [facility] 6th Floor [phone] FO OD AND NUT 05/27/2018 3:05 PM [facility] 6th Floor [phone] [facility] 05/27/2018 4:30 PM [facility] at [facility] 15th Floor [phone] Comprehensiv 06/04/2018 10:35 AM Randell Franks Cardiology Preventive at [facility] [phone] Cardiology Discharging Physician: KAIN Agee Attending Physician: Ion Castanon MD [facility] Red Surgery Pager# [phone] 9:50 AM 03/03/2018 documented in this enco [...] | | 0 | | | | CRB&MLP-T9-PHI85-GEN | mouth two times | | | [...] Attending Provider: Ion Castanon MD ID: Elzbieta Critsina is a 43 y.o. female with a [...] date of discharge 03/03/18 PARTHA Rajwinder MS3 [facility] [employer] Demarcus Menon MD - [...] for care ride home (pt lives in [place]) Demarcus Alas M.D. General Surgery Resident PGY-1 Pager: [phone] Ion Ferrari MD - 10:00 AM PDTI [...] [address]ann[address] | | | | | | [place], [place] | | | | | | [address] | | | | | | [phone] | | | | | | | [...] AMES | [address] | [place], [place] | | | JUSTINE [facility] OF CARE | [address] | [address] | | | TESTS | | | [...] [place] | [address] | [place] | | | JUSTINE DAWN OF JAKY | [address] | [address] | | | TESTS | | | [...] - [place] | [address] | [place], [place] | | | JUSTINE DAWN OF CARE | [address] | [address] | | | TESTS | | | [...] AMES | [address] | [place], [place] | | | JUSTINE DAWN OF CARE | [address] | [address] | | | TESTS | | | [...] [place] | [address] | [place], [place] | | | JUSTINE DAWN OF JAKY | [address] | [address] | | | TESTS | | | [...] [place] | [address] | [place] | | | [facility] POINT OF CARE | [address] | [address] | | | TESTS | | | [...] AMES | [address] | [place] | | | JUSTINE DAWN OF CARE | [address] | [address] | | | TESTS | | | [...] [place] | [address] | [place], [place] | | | JUSTINE DAWN OF CARE | [address] | [address] | | | TESTS | | | [...] [place] | [address] | [place] | | | [facility] POINT OF CARE | [address] | [address] | | | TESTS | | | [...] AMES | [address] | [place] | | | [facility] POINT OF CARE | [address] | [address] | | | TESTS | | | [...] [place] | [address] | [place], [place] | | | JUSTINE DAWN OF CARE | [address] | [address] | | | TESTS | | | [...] [place] | [address] | [place] | | | [facility] POINT OF CARE | [address] | [address] | | | TESTS | | | [...] AMES | [address] | [place] | | | [facility] [facility] | [address] | [address] | | | TESTS | | | [...] [place] | [address] | [place], [place] | | | JUSTINE DAWN OF CARE | [address] | [address] | | | TESTS | | | [...] [place] | [address] | [place], [place] | | | [facility] POINT OF CARE | [facility] | [address] | | | TESTS | | | [...] AMES | [address] | [place] | | | [facility] POINT OF CARE | [facility] | [address] | | | TESTS | | | [...] [place] | [address] | [place] | | | JUSTINE DAWN OF CARE | [address] | [address] | | | TESTS | | | [...] KWAKU | [address] | [place], [place] | | | JUSTINE DAWN OF CARE | [address] | [address] | | | TESTS | | | [...] AMES | [address] | [place] | | | JUSTINE DAWN OF CARE | [address] | [address] | | | TESTS | | | [...] MARQU[place] | [address] | [place] | | | JUSTINE DAWN OF CARE | [address] | [address] | | | TESTS | | | [...] - [place] | [address] | [place] | | | [facility] POINT OF CARE | [address] | [address] | | | TESTS | | | [...] + + + | NKECHI AMES | [address] | [place] | | | [place] [facility] [facility] | [address] | [address] | | | TESTS | | | [...] [place] | [address] | [place], [place] | | | JUSTINE DAWN OF CARE | [address] | [address] | | | TESTS | | | [...] [place] | [address] | [place], [place] | | | JUSTINE DAWN OF CARE | [address] | [address] | | | TESTS | | | [...] AMES | [address] | [place] | | | [facility] POINT OF CARE | [address] | [address] | | | TESTS | | | [...] | [facility] | [address] | [place], [place] | | | JUSTINE DAWN OF CARE | [address] | [address] | | | TESTS | | | | + + + + + EGD (ESOPHAGOGASTRODUODENOSCOPY) (03/01/2018 11:21 AM PDT) + + + | Narrative | Performed At | + + + | Ion Castanon MD 03/01/2018 12:25 PM Date of Procedure: | | | 03/01/18 Primary Surgeon: Ion Castanon MD Co Surgeon or | | | assistant director of security: Eldon Gonzalez MD, Chief Resident Alexx | [...] The jejunum was divided with 60 mm Kenefic stapler with white | | | load [...] created in each limb and a 60mm Kenefic stapler | | | with white load was fired to create a hufp-[id number] | | | jejunojejunostomy. The anastamosis was confirmed to be widely | | | patent and hemostatic. The common enterotomy was closed by placing | | | 2 stay sutures along the enterotomy for retraction and firing an | | | Kenefic 60mm stapler with white load across the [...] | | | was entered. The 60mm Kenefic stapler with blue load was placed | [...] blue load of the 60mm stapler. The Kenefic was then fired | | | longitudinally towards the angle of His to create the gastric pouch, | | | leaving the gastrotomy from foreign body removal, on the pouch. | | | Dissection was performed retrogastric to connect posterior and | | | anterior dissection planes and ensure adequate fundus exclusion. | | | Additional fires of the Kenefic stapler were performed with blue | | [...] with | | | 5 mm clip dentofacial orthopedics dentist. A 25mm Orvil was passed transorally by [...] was closed with 60mm | | | Kenefic stapler with a white load. Medially and [...] | | as my assistant director of security for the entire procedure, given the technically | | | challenging nature of this procedure. She assisted in all critical | | | steps of the procedure. Dr. Gonzalez was present for endoscopy at the | | | end of the procedure. Ion Castanon MD, FACS, [facility] | | | Bariatric Surgery | | [...] or | | | assistant director of security: Eldon Gonzalez MD, Chief Resident Alexx | [...] The jejunum was divided with 60 mm Kenefic stapler with white | | | load [...] created in each limb and a 60mm Kenefic stapler | | | with white load was fired to create a jjzh-sq-xqry | | | jejunojejunostomy. The anastamosis was confirmed to be widely | | | patent and hemostatic. The common enterotomy was closed by placing | | | 2 stay sutures along the enterotomy for retraction and firing an | | | Kenefic 60mm stapler with white load across the [...] | | | was entered. The 60mm Kenefic stapler with blue load was placed | [...] blue load of the 60mm stapler. The Kenefic was then fired | | | longitudinally towards the angle of His to create the gastric pouch, | | | leaving the gastrotomy from foreign body removal, on the pouch. | | | Dissection was performed retrogastric to connect posterior and | | | anterior dissection planes and ensure adequate fundus exclusion. | | | Additional fires of the Kenefic stapler were performed with blue | | [...] with | | | 5 mm clip dentofacial orthopedics dentist. A 25mm Orvil was passed transorally by [...] was closed with 60mm | | | Kenefic stapler with a white load. Medially and [...] | | as my assistant director of security for the entire procedure, given the technically | | | challenging nature of this procedure. She assisted in all critical | | | steps of the procedure. Dr. Gonzalez was present for endoscopy at the | | | end of the procedure. Ion Castanon MD, FACS, [facility] | | | Bariatric Surgery | | [...] [place] | [address] | [place] | | | [place] POINT OF CARE | [address] | [address] | | | TESTS | | | [...]
--- OUTSIDE RECORDS SUMMARY | ~2019-12-19 | XMS | Encounter Summary ---
Demographics + + + | Address | [address] | | | [place] [address] | + + + | Home Phone [...] [place], [place] | | | | | [address] | | + + + + + | Ellie Vang | ECON | Unknown | | + + + + + Care Team Providers + +------+ + | Care Mechanical Repair Worker Name | Role | Phone | [...] | 2016 | on | Center at [place] [id number] | | | | | | Jacy Flannery | | | | | | Mailcode: [place] | | | | | | for Health and | | | | | | [facility], [facility] | | | | | | [place], [place] | | | | | | [address] | | | | | | [phone] | | | +--------+ + + + [...] Flannery | | | | | | [place], [place] | | | | | | [address] | | | | | | [phone] | | | | | | | | +--------+---------+ + + + documented as of this encounter Visit Diagnoses Not on filedocumented in this encounter"
--- OUTSIDE RECORDS SUMMARY | ~2019-12-19 | XMS | Encounter Summary ---
Demographics + + + | Address | [address] | | | [place] [address] | + + + | Home Phone [...] | Organization | [facility] | | | and [...] Providers + +------+ + | Care Single End Sewer Name | Role | Phone | + +------+ + PCP | Unavailable | + +------+ + Encounter Details +--------+ + + + + | Date | Type | Department | Care Team | Description | +--------+ + + + + | 12/13/ | Hospital | [facility] | Erich Wells | | | 2004 | Encounter | MED [facility] SLEEP | MD Michael [address] | | | | | CENTER [address] [place] | | | | | [place], [place] | [place] [address] | | | | | [address] | [phone] | | | | | [phone] | | | +--------+ + + + [...] [address] | | | | | | [address] | | | | | | [place] [address] | | | | | | [phone] | | | | | | | | +--------+---------+ + + + documented as of this encounter Visit Diagnoses Not on filedocumented in this encounter"
--- OUTSIDE RECORDS SUMMARY | ~2019-12-19 | XMS | Encounter Summary ---
Demographics + + + | Address | [address] | | | [place] [address] | + + + | Home Phone [...] [place], [place] | | | | | [address] | | + + + + + | Ellie Vang | ECON | Unknown | | + + + + + Care Team Providers + +------+ + | Care Benefits Counselor Name | Role | Phone | [...] | 2016 | on | Center at [place] [id number] | | | | | | Jacy Flannery | | | | | | Mailcode: [place] | | | | | | for Health and | | | | | | [facility], [facility] 2 | | | | | | [place], [place] | | | | | | [address] | | | | | | [phone] | | | +--------+ + + + [...] Flannery | | | | | | [place], [place] | | | | | | [address] | | | | | | [phone] | | | | | | | | +--------+---------+ + + + documented as of this encounter Visit Diagnoses Not on filedocumented in this encounter"
--- OUTSIDE RECORDS SUMMARY | ~2019-12-19 | XMS | Encounter Summary ---
Demographics + + + | Address | [address] | | | [place] [address] | + + + | Home Phone [...] [place], [place] | | | | | [address] | | + + + + + | Ellie Vang | ECON | Unknown | | + + + + + Care Team Providers + +------+ + | Care Nurse Ldr Name | Role | Phone | + [...] [facility] [place] Mailcode: | [place], [place] | | | | | [facility] | [address] | | | | | Health and [facility], | [phone] | | | | | [address] | | | | | | Floor [place], [place] | | | | | | [address] | | | | | | [phone] | | | +--------+ + + + [...] | | 0 | | | | [id number] | mouth two times | | | [...] Flannery | | | | | | [place], [place] | | | | | | [address] | | | | | | [phone] | | | | | | | [...] + + + | EXAM: Esophagram with recycling director radiograph HISTORY: RYGB 03/01/2018, | [facility] | | vomiting/pain ever since COMPARISON: 04/27/2018 CT TECHNIQUE: | RADIOLOGY VOICE | | Hand Engraver radiograph was performed. Single contrast exam of the esophagus, | RECOGNITION 2 | | gastric pouch, and gastrojejunostomy in upright positioning. | | | Radiation dose reduction technique was maximized where appropriate | | | using pulsed fluoroscopy and fluoro-store images. Fluoro Time 57 | | | second(s) FINDINGS: Hand Engraver shows stone in the upper pole of [...] AM PST EXAM: Esophagram | | with recycling director radiograph HISTORY: RYGB 03/01/2018, vomiting/pain ever since COMPARISON: | | 04/27/2018 CT TECHNIQUE: Hand Engraver radiograph was performed. Single contrast exam of the | | esophagus, gastric pouch, and gastrojejunostomy in upright positioning. Radiation dose | | reduction technique was maximized where appropriate using pulsed fluoroscopy and | | fluoro-store images. Fluoro Time 57 second(s) FINDINGS:Hand Engraver shows stone in the upper | | [...]
--- OUTSIDE RECORDS SUMMARY | ~2019-12-19 | XMS | Encounter Summary ---
Demographics + + + | Address | [address] | | | [place] [address] | + + + | Home Phone [...] [place], [place] | | | | | [address] | | + + + + + | Ellie Vang | ECON | Unknown | | + + + + + Care Team Providers + +------+ + | Care Veneer Jointer Name | Role | Phone | + [...] | | | | | [facility] [place] | | | | | | [place], [place] | | | | | | [address] | | | | | | [phone] | | | +--------+ + + + [...] Flannery | | | | | | [place], [place] | | | | | | [address] | | | | | | [phone] | | | | | | | | +--------+---------+ + + + documented as of this encounter Visit Diagnoses Not on filedocumented in this encounter"
--- OUTSIDE RECORDS SUMMARY | ~2019-12-19 | XMS | Encounter Summary ---
Demographics + + + | Address | [address] | | | [place] [address] | + + + | Home Phone [...] [place], [place] | | | | | [address] | | + + + + + | Ellie Vang | ECON | Unknown | | + + + + + Care Team Providers + +------+ + | Care Carpenter Mold Name | Role | Phone | + [...] [place] | | | | | | [address] | | | | | | [phone] | | | | | | | | +--------+---------+ + + + documented as of this encounter Visit Diagnoses Not on filedocumented in this encounter"
--- OUTSIDE RECORDS SUMMARY | ~2019-12-19 | XMS | Encounter Summary ---
Demographics + + + | Address | [address] | | | [place] [address] | + + + | Home Phone [...] [place], [place] | | | | | [address] | | + + + + + | Ellie Vang | ECON | Unknown | | + + + + + Care Team Providers + +------+ + | Care Oyster Grower Name | Role | Phone | [...] Diabetes & | Morbid | Kathy Feliciano, SPECIAL INVESTIGATOR | [address] | | | | Metabolism | obesity | [address] | Pavilion | | | | | (HCC) | [address], | Loop | | | | | Procedures | [address] | Physician's | | | | | CONSULT TO | [place], [place] | Pavilion | | | | | ENDO | [address] | Physician's | | | | | [address] | Phone: | Pavilion | | | | | [address] | [phone] | [place], [place] | | | | | | Fax: | [address] | | | | | | [phone] | Phone: | | | | | | | [phone] | | | | | | | Fax: | | | | | | | [phone] | +--------+--------+ + + + + Encounter Details +--------+ + + + + | Date | Type | Department | Care Team | Description | +--------+ + + + + | 11/15/ | Documentati | [facility] | Kathy Feldman, | | | 2012 | on | Center at [facility] [address] | SPECIAL INVESTIGATOR [address] | | | | | [address] | [facility] [address] | | | | | Mailcode: Center | [place], [place] | | | | | [facility] and | [address] | | | | | [facility] 2 | [phone] | | | | | [place], [place] | | | | | | [address] | | | | | | [phone] | | | +--------+ + + + [...] Flannery | | | | | | [place], [place] | | | | | | [address] | | | | | | [phone] | | | | | | | | +--------+---------+ + + + documented as of this encounter Visit Diagnoses + + | Diagnosis | + + | Morbid obesity (HCC) - Primary Morbid obesity | + + documented in this encounter"
--- OUTSIDE RECORDS SUMMARY | ~2019-12-19 | XMS | Encounter Summary ---
Demographics + + + | Address | [address] | | | [place] [address] | + + + | Home Phone [...] + | Organization | [facility] | [...] Team Providers + +------+ + | Care Resourcing Consultant Name | Role | Phone | [...] + + | 06/21/ | Telephone | [facility] | Christian Dawson, | Pre-Op (confirm | | 2019 | | CENTER CV INTRA OP | MD Saumya Pandya | arrival for 06/22 | | | | [address] | [address] | procedure) | | | | [place], [place] | [place] [address] | | | | | [address] | [phone] | | | | | [phone] | | | +--------+ + + + [...] | 2020 | Visit | | Toshia, CANDY DIPPER [address] | | | | | | [address] | | | | | | [place] [address] | | | | | | [phone] | | | | | | | | +--------+---------+ + + + documented as of this encounter Visit Diagnoses Not on filedocumented in this encounter"
--- OUTSIDE RECORDS SUMMARY | ~2019-12-19 | XMS | Encounter Summary ---
Demographics + + + | Address | [address] | | | [place] [address] | + + + | Home Phone [...] [place], [place] | | | | | [address] | | + + + + + | Ellie Vang | ECON | Unknown | | + + + + + Care Team Providers + +------+ + | Care Telesales Manager Name | Role | Phone | [...] + | 11/05/ | Hospital | [facility] 14C [address] | Joseph An | | | 2016 - | Encounter | [address] | MD Birgit [address] [facility] | | | | | 14C [facility] | [address] | | | 11/20/ | | [place], [place] | [place], [place] | | | 2016 | | [address] | [address] | | | | | [phone] | [phone] | | | | | | | | | | | | Ana, | | | | | | MD Briana [address] | | | | | | [address] | | | | | | Rd [place], [place] | | | | | | [address] | | | | | | [phone] | | | | | | | | | | | | Carmelina Tucker, | | | | | | JEFFREY-Aimee [address] | | | | | | [address] | | | | | | [place], [place] | | | | | | [address] | | | | | | [phone] | | | | | | | | | | | | Charley Lacey MD | | | | | | Jose Scott MD | | | | | | [address] | | | | | | [address] | | | | | | [place], [place] | | | | | | [address] | | | | | | [phone] | | | | | | | | | | | | Mannie Larkin MD | | | | | | [address] | | | | | | [address] [place], | | | | | | [place] [address] | | | | | | [phone] | | | | | | | | | | | | Tyrone Adrian MD | | | | | | [address] | | | | | | [address] [place], | | | | | | [place] [address] | | | | | | [phone] | | | | | | | [...] did want her to follow up with education manager in [place]. She should continue working towards bariatric surgery wh ich will ultimately put less stress on her heart. -Continue torsemide 80mg BID -Increase potassium supplementation to KCl 40mg BID -Daily weights and strict 2g Na 2L fluid restricted diet -Close followup with Dr. Goodrich (appt on 11/25 at 11AM) -Needs followup with cardiology in [place] #Left lower extremity DVT #Presumed PE Asymmetric left lower extremity pain and swelling was suspicious for DVT and confirmed with duplex ultrasound. Did not pursue CTA as it was decided that it would not pipe changer . Started anticoagulation bridge with heparin [...] mouth once daily. , Historical Med CALCIUM [id number]-GENIS ORAL Take 2 tablets by mouth two [...] Cyndi Meier Cardiology Congest[facility] Failure at [facility] [phone] Cardiology Additional Instructions/Orders: Diet Diabetic (Consistent [...] Good Yosef Segovia MD PGY-1 Internal Medicine [id number] INPATIENT FACULTY PROGRESS NOTE - GM 1 [...] 15) Candidal intertrigo Tyrone Adrian MD [facility] 14C consumer affairs specialist Division of Hospital Medicine Department of Medicine [address] [place] [address] [facility] DEPARTMENT: Hosp- [id number] Place of Service: Date of Service: 11/21/2015 CSN: [id number] Modifiers:GC Resident Involved: Yes Suggested CPT: 69170 Discharge Management < 30 minute documented in this encou nter Medications at Time of Discharge + + + +---------+--------+ + | Medication | Sig | Dispensed | Refills | Start | End Date | | | | | | Date | | + + + +---------+--------+ + | CALCIUM | Take 2 tablets by | | 0 | | | | [id number]&[id number]-GEN | mouth two times | | | [...] 15) Candidal intertrigo Tyrone Adrian MD [facility] 14C consumer affairs specialist Division of Hospital Medicine Department of Medicine [facility] [address] [place] [address] [facility] DEPARTMENT: Hosp- [id number] Place of Service: - Date of Service: 11/20/2015 CSN: [id number] Modifiers:CHANDLER Resident Involved: Yes Suggested CPT: 30456 Subsequent Visit Exp Prob Foc/Mod Complexity 25 min oClleen Diamond - 016 6:49 AM PDT PHYSICIAN MILK AND CREAM GRADER STUDENT PROGRESS NOTE FOR EDUCATIONAL PURPOSES ONLY INPATIENT PROGRESS NOTE PATIENT INFORMATION Patient Name: Elzbieta Cristina Date of : 1975 Date of Admission: 11/06/2015 PCP: Fadi Goodrich DO Room/Bed: [facility] Attending Provider: Tyrone Adrian MD Encounter Information [...] of ovarian cysts or menses related. Contact BENEFITS CONSULTANT if TV-US i s ordered. - TV-US [...] topiramate 200mg po bid JEFFREY Gee-S2 [facility] PA Student Feeding: <2L fluid, Diabetic diet, >2g na Analgesia: APAP, gabapentin, hydrocodone Thromboembolic prophylaxis: Heparin/warfarin Glycemic control: moderate ISS Mobility: Encourage walking and movement Discharge: Expect hospital stay another 2-3 days with PCP FU (Dr. Goodrich) on Saturday 11/25 @ 1 1 am. - Referral to Ui Engineer Code status: FULL Associated attestation - Yosef [...] PCP Yosef Segovia MD PGY-1 Internal Medicine [id number] Tyrone Adrian MD - 11/19/2015 11:51 AM [...] the PO works) Tyrone Adrian MD [facility] 14C consumer affairs specialist Division of Hospital Medicine Department of Medicine [facility] [place] [address] [place] [phone] [facility] DEPARTMENT: Hosp- [id number] Place of Service: [facility] Date of Service: 11/19/2015 CSN: [id number] Modifiers:GC Resident Involved: Yes Suggested CPT: 07839 Subsequent Visit Exp Prob Foc/Mod Complexity 25 min lowerbobbi Colleen - 016 6:24 AM PDT PHYSICIAN MILK AND CREAM GRADER STUDENT PROGRESS NOTE FOR EDUCATIONAL PURPOSES ONLY INPATIENT PROGRESS NOTE PATIENT INFORMATION Patient Name: Elzbieta Cristina Date of : 1975 Date of Admission: 11/06/2015 PCP: Fadi Goodrich DO Room/Bed: [facility]/08/08 Attending Provider: Tyrone Adrian MD Encounter Information [...] of ovarian cysts or menses related. Contact BENEFITS CONSULTANT if TV-US i s ordered. - TV-US [...] topiramate 200mg po bid JEFFREY Gee-S2 [facility] PA Student Feeding: <2L fluid, Diabetic diet, [...] can. Yosef Segovia MD PGY-1 Internal Medicine [id number] Tyrone Adrian MD - 11/18/2015 2:01 PM [...] 15) Candidal intertrigo Tyrone Adrian MD [facility] 14C consumer affairs specialist Division of Hospital Medicine Department of Medicine [facility] [address] [place] [phone] [facility] DEPARTMENT: Hosp- [id number] Place of Service: Date of Service: 11/18/2015 CSN: [id number] Modifiers:GC Resident Involved: Yes Suggested CPT: 96627 Subsequent Visit Exp Prob Foc/Mod Complexity 25 [...] plan. Yosef Segovia MD PGY-1 Internal Medicine [id number] signed by Yosef Segovia at 11/18/2015 11:52 [...] 15) Candidal intertrigo Tyrone Adrian MD [facility] 14C consumer affairs specialist Division of Hospital Medicine Department of Medicine [facility] & [address] [place] [phone] [facility] DEPARTMENT: Hosp- [id number] Place of Service: - [id number] Date of Service: 11/17/2015 CSN: [id number] Modifiers:GC Resident Involved: Yes Suggested CPT: 84561 Subsequent Visit Exp Prob Foc/Mod Complexity 25 min lColleen goff - 016 6:40 AM PDT PHYSICIAN MILK AND CREAM GRADER STUDENT PROGRESS NOTE FOR EDUCATIONAL PURPOSES ONLY [...] topiramate 200mg po bid JEFFREY Gee-S2 [facility] PA Student Feeding: <2L fluid, Diabetic diet, [...] can Yosef Segovia MD PGY-1 Internal Medicine [id number] Tyrone Adrian MD - 11/16/2015 4:59 PM [...] 15) Candidal intertrigo Tyrone Adrian MD [facility] 14C consumer affairs specialist Division of Hospital Medicine Department of Medicine [facility] [address] [place] [phone] [facility] DEPARTMENT: Hosp- [id number] Place of Service: - Date of Service: 11/16/2015 CSN: [id number] Modifiers:GC Resident Involved: Yes Suggested CPT: 46664 Subsequent Visit Exp Prob Foc/Mod Complexity 25 min olleen Diamond - 016 6:43 AM PDT PHYSICIAN MILK AND CREAM GRADER STUDENT PROGRESS NOTE FOR EDUCATIONAL PURPOSES ONLY INPATIENT PROGRESS NOTE PATIENT INFORMATION Patient Name: Elzbieta Cristina Date of : 1975 Date of Admission: 11/06/2015 PCP: Fadi Goodrich DO Room/Bed: [address] [place] [address] Attending Provider: Tyrone Adrian MD Encounter Information [...] topiramate 200mg po bid JEFFREY Gee-S2 [facility] PA Student Feeding: <2L fluid, Diabetic diet, [...] Patient lives i [facility] which is quite a distance to travel to and from [place]. We would ideally arran ge cardiac follow [...] 15) Candidal intertrigo Tyrone Adrian MD [facility] 14C consumer affairs specialist Division of Hospital Medicine Department of Medicine [facility] [address] [place] [address] [facility] DEPARTMENT: Hosp- [id number] Place of Service: Date of Service: 11/15/2015 CSN: [id number] Modifiers:GC Resident Involved: Yes Suggested CPT: 82420 Subsequent Visit Detailed/High complexity 35 min lColleen goff - 016 6:33 AM PDT PHYSICIAN MILK AND CREAM GRADER STUDENT PROGRESS NOTE FOR EDUCATIONAL PURPOSES ONLY [...] last 8 days Intake 9571.5 ml Output 91662 ml Net since Admission -79160.5 ml -25.938 L = 57.0636 lbs Constitutional: [...] topiramate 200mg po bid JEFFREY Gee-S2 [facility] PA Student Feeding: <2L fluid, Diabetic diet, [...] can Yosef Segovia MD PGY-1 Internal Medicine [id number] Tyrone Adrian MD - 11/14/2015 4:16 PM [...] 15) Candidal intertrigo Tyrone Adrian MD [facility] 14C consumer affairs specialist Division of Hospital Medicine Department of Medicine [facility] [address] [place] [address] [facility] DEPARTMENT: Hosp- [id number] Place of Service: - Date of Service: 11/14/2015 CSN: [id number] Modifiers:CHANDLER Resident Involved: Yes Suggested CPT: 69170 Subsequent Visit Exp Prob Foc/Mod Complexity 25 min olleen Diamond - 016 6:42 AM PDT PHYSICIAN MILK AND CREAM GRADER STUDENT PROGRESS NOTE FOR EDUCATIONAL PURPOSES ONLY INPATIENT PROGRESS NOTE PATIENT INFORMATION Patient Name: Elzbieta Cristina Date of : 1975 Date of Admission: 11/06/2015 PCP: Fadi Goodrich DO Room/Bed: [facility] Attending Provider: Tyrone Adrian MD Encounter Information [...] topiramate 200mg po bid JEFFREY Gee-S2 [facility] PA Student Feeding: <2L fluid, Diabetic diet, [...] outpatient Yosef Segovia MD PGY-1 Internal Medicine [id number] Tyrone Adrian MD - 11/13/2015 4:06 PM [...] 15) Candidal intertrigo Tyrone Adrian MD [facility] 14C consumer affairs specialist Division of Hospital Medicine Department of Medicine [facility] [address] [place] [phone] [facility] DEPARTMENT: Hosp- [id number] Place of Service: Date of Service: 11/13/2015 CSN: [id number] Modifiers:GC Resident Involved: Yes Suggested CPT: 44823 Subsequent Visit Detailed/High complexity 35 min lshell Colleen - 016 6:36 AM PDT PHYSICIAN MILK AND CREAM GRADER STUDENT PROGRESS NOTE FOR EDUCATIONAL PURPOSES ONLY INPATIENT PROGRESS NOTE PATIENT INFORMATION Patient Name: Elzbieta Cristina Date of : 1975 Date of Admission: 11/06/2015 PCP: Fadi Goodrich DO Room/Bed: [facility] Attending Provider: Tyrone Adrian MD Encounter Information [...] topiramate 200mg po bid JEFFREY Gee-S2 [facility] PA Student Feeding: <2L fluid, Diabetic diet, [...] VTE. Yosef Segovia MD PGY-1 Internal Medicine [id number] Tyrone Adrian MD - 11/12/2015 1:59 PM [...] 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, Jordy DUST COLLECTOR ATTENDANT, at this point not definitive Plan: continue [...] 12) Candidal intertrigo Tyrone Adrian MD [facility] 14C consumer affairs specialist Division of Hospital Medicine Department of Medicine [facility] [address] [place] [address] [facility] DEPARTMENT: Hosp- [id number] Place of Service: - Date of Service: 11/12/2015 CSN: [id number] Modifiers:GC Resident Involved: Yes Suggested CPT: 52885 Subsequent Visit Detailed/High complexity 35 min lColleen goff - 016 6:31 AM PDT PHYSICIAN MILK AND CREAM GRADER STUDENT PROGRESS NOTE FOR EDUCATIONAL PURPOSES ONLY [...] topiramate 200mg po bid JEFFREY Gee-S2 [facility] PA Student Feeding: <2L fluid, Diabetic diet, [...] disease. Yosef Segovia MD PGY-1 Internal Medicine [id number] Rucker MD - 11/11/2015 9:19 PM PDTGENERAL [...] diuresis then RHC Mannie Larkin MD Clinical Anatomic Pathologist, Internal Medicine Pager [phone] ERColleen Diamond - 10/25 6:40 AM PDT PHYSICIAN MILK AND CREAM GRADER STUDENT PROGRESS NOTE FOR EDUCATIONAL PURPOSES ONLY [...] - topiramate 200mg po bid JEFFREY Gee-S2 [facility] PA Student Feeding: <2L fluid, Diabetic diet, [...] pain Yosef Segovia MD PGY-1 Internal Medicine [id number] Maria Eugenia Leiva RCP - 11/11/2015 6:39 [...] another 5-7 days Mannie Larkin MD Clinical Anatomic Pathologist, Internal Medicine Pager [phone] Yosef Fang - 7:24 AM PDT General [...] plan. Yosef Segovia MD PGY-1 Internal Medicine [id number] signed by Yosef Segovia at 11/10/2015 2:50 [...] heart cath onc e a bit veneer drier. In terms of AMARA - does not tolerate CPAP historically. Likely CPAP will be ve ry important for her going forward. Will try overnight oximetry here to assess severity. Discharge planning:Anticipate several days in house. I spent >35 min of which >50% was spent in counseling and coordination of care. Briana Perez MD [facility] Division of Hospital Medicine Grisel Mcghee NP [...] Maker Primary Surrogate Decision Maker Katalina Padilla [facility] [phone] Advanced Directives Existence of Advanced Directive Reviewed: No- Has Interest (11/09/15 1022) Advanced Directives Reviewed Comments: I gave a copy of advance directives (11/09/15 1022) KRISHNA Huertas NP [facility] 14[address] [place] [phone] Colleen Tello - 6:41 AM PDT PHYSICIAN MILK AND CREAM GRADER STUDENT PROGRESS NOTE FOR EDUCATIONAL PURPOSES ONLY INPATIENT PROGRESS NOTE PATIENT INFORMATION Patient Name: Elzbieta Cristina Date of : 1975 Date of Admission: 11/06/2015 PCP: Faid Goodrich DO Room/Bed: Attending Provider: Briana Perez [...] of acute blood loss and anemia of manager retention ela dz and thalassemia is less likely. [...] AM Yosef Segovia MD PGY-1 Internal Medicine [id number] Briana Perez MD - 11/08/2015 2:01 PM [...] coordination of care. Briana Perez MD [facility] Division of Hospital Medicine olleen Diamond - 11/08/2015 6:26 AM PDT PHYSICIAN MILK AND CREAM GRADER STUDENT PROGRESS NOTE FOR EDUCATIONAL PURPOSES ONLY [...] bid (topamax, nerve pain) JEFFREY Gee-S2 [facility] PA Student Feeding: <2L fluid, Diabetic diet [...] Hair Md, MSc Internal Medicine PGY2 Pager [phone] Kwadwo Freire - 11/07/2015 2:05 PM PDTTransthoracic [...] plan. Yosef Segovia MD PGY-1 Internal Medicine [id number] lowersColleen - 016 8:43 AM PDT PHYSICIAN MILK AND CREAM GRADER STUDENT PROGRESS NOTE FOR EDUCATIONAL PURPOSES ONLY [...] perfusion. - consider US to evaluate liver (MGKF-blv-gxbdjuybi fatty liver dz) and look for ascites. [...] armour thyroid 30mg po bid JEFFREY Gee-S2 [facility] PA Student Feeding: <2L fluid, <2g Na [...] [place] | | | | | | [address] | | | | | | [phone] | | | | | | | [...] [facility] | [address] | [place], [place] | | | [facility]ARE | [address] | [address] | | | TESTS | | | [...] [facility] | [address] | [place] [address] | | | SERVICES, LYDIA | LESLY [...] [facility] | [address] | [place] [address] | | | SERVICES, CORE | [address] [...] [facility] | [address] | [place] [address] | | | CLAIRE, LYDIA | LESLY [...] [facility] | [address] | [place], [place] | | | [facility] OF JAKY | [facility] | [address] | | | TESTS | | | [...] [facility] | [address] | [place], [place] | | | [place] OF CARE | [address] | [address] | | | TESTS | | | [...] [facility] | [address] | [place], [place] | | | [facility] CARE | [facility] | [address] | | | TESTS | | | [...] [facility] | [address] | [place], [place] | | | [facility] [place] | [facility] | [address] | | | TESTS | | | [...] [facility] | [address] | [place], [place] | | | [place] OF [place] | [address] | [address] | | | TESTS | | | [...] [facility] | [address] [facility] | [place] [address] | | | SERVICES, LYDIA | LESLY [...] | [facility] | [address] | [place] [address] | | | SERVICES, CORE | [address] | | | + + + + + MAGNESIUM, PLASMA (11/20/2015 6:00 AM PDT) + +-------+ + + + | Component | Value | Ref Range | Performed | Pathologist | | | | | At | Signature | + +-------+ + + + | MAGNESIUM,P | 2.5 | 1.8 - 2.5 mg/dL | [facility] [...] [facility] | [address] | [place] [address] | | | SERVICES, CORE | [address] [...] | [facility] | [address] | [place] [address] | | | SERVICES, CORE | [address] [...] [facility] | [address] | [place], [place] | | | [facility] CARE | [address] | [address] | | | TESTS | | | [...] - [facility] | [address] | [place], [place] | | | [facility] | [address] | [address] | | | TESTS | | | [...] [facility] | [address] | [place] [address] | | | SERVICES, CORE | [address] [...] | [facility] | [address] | [place] [address] | | | SERVICES, CORE | LESLY [...] [facility] | [address] | [place] [address] | | | SERVICES, CORE | LESLY [...] AM[facility] | [address] | [place], [place] | | | [facility] OF [place]Y | [address] | [address] | | | TESTS | | | [...] [facility] | [address] | [place], [place] | | | [facility] [facility] OF CARE | [address] | [address] | | | TESTS | | | [...] [facility] | [address] | [place], [place] | | | [facility]ARE | [address] | [address] | | | TESTS | | | [...] AMES | [address] | [place], [place] | | | [facility] [place] | [address] | [address] | | | TESTS | | | [...] [facility] | [address] | [place] [address] | | | SERVICES, CORE | [address] | | | + + + + + MAGNESIUM, PLASMA (11/18/2015 2:25 PM PDT) + +-------+ + + + | Component | Value | Ref Range | Performed | Pathologist | | | | | At | Signature | + +-------+ + + + | MAGNESIUM,P | 2.2 | 1.8 - 2.5 mg/dL | IA[facility] | | | LASMA | | | [...] | [facility] | [address] | [place] [address] | | | SERVICES, CORE | LESLY [...] [facility] | [address] | [place], [place] | | | [facility]ARE | [address] | [address] | | | TESTS | | | [...] - [facility] | [address] | [place], [place] | | | [facility] CARE | [facility] | [address] | | | TESTS | | | [...] [facility] | [address] | [place] [address] | | | SERVICES, CORE | [address] [...] [facility] | [address] | [place] [address] | | | SERVICES, LYDIA | [address] [...] | [facility] | [address] | [place] [address] | | | SERVICES, CORE | LESLY [...] [facility] | [address] | [place] [address] | | | SERVICES, CORE | [address] [...] (H) | 60 - 99 mg/dL | [facility] - | | | GLUCOSE, | | [...] [facility] | [address] | [place], [place] | | | JUST[facility] [place] OF JAKY | [facility] | [address] | | | TESTS | | | [...] [facility] | [address] | [place], [place] | | | [facility] OF CARE | [facility] | [address] | | | TESTS | | | [...] [facility] | [address] | [place], [place] | | | [facility] [facility]INT OF CARE | [address] | [address] | | | TESTS | | | [...] [facility] | [address] | [place], [place] | | | [facility] OF JAKY | [facility] | [address] | | | TESTS | | | [...] [facility] | [address] | [place] [address] | | | LYDIA RANGEL | LESLY [...] [facility] | [address] | [place] [address] | | | SERVICES, CORE | [address] | | | + + + + + MAGNESIUM, PLASMA (11/17/2015 5:39 AM PDT) + +-------+ + + + | Component | Value | Ref Range | Performed | Pathologist | | | | | At | Signature | + +-------+ + + + | MAGNESIUM,P | 2.3 | 1.8 - 2.5 mg/dL | [facility] | | | LASMA | | | [...] [facility] | [address] | [place] [address] | | | SERVICES, CORE | [address] [...] [facility] | [address] | [place] [address] | | | SERVICES, CORE | LESLY [...] [facility] | [address] | [place] [address] | | | SERVICES, CORE | [address] [...] [facility] | [address] | [place] [address] | | | SERVICES, CORE | LESLY [...] (H) | 60 - 99 mg/dL | [facility] - | | | GLUCOSE, | | [...] [facility] | [address] | [place], [place] | | | [facility] OF [place] | [facility] | [address] | | | TESTS | | | [...] [facility] | [address] | [place], [place] | | | [facility]WN OF CARE | [facility] | [address] | | | TESTS | | | [...] [facility] | [address] | [place], [place] | | | [facility] CARE | [address] | [address] | | | TESTS | | | [...] [facility] | [address] | [place] [address] | | | SERVICES, CORE | LESLY [...] [facility] | [address] | [place] | | | [facility] CARE | [address] | [address] | | | TESTS | | | [...] [facility] | [address] | [place] [address] | | | CLAIRE, LYDIA | LESLY [...] [facility] | [address] | [place] [address] | | | SERVICES, CORE | [address] [...] [facility] | [address] | [place] [address] | | | SERVICES, CORE | [address] [...] [facility] | [address] | [place] [address] | | | SERVICES, CORE | LESLY [...] + + + | [facility] | [address] | [place], [place] | | | [facility] [facility] OF CARE | [address] | [address] | | | TESTS | | | [...] + | [facility] | [address] | [place] [address] | | | LYDIA RANGEL | LESLY [...] [facility] | [address] | [place] | | | [facility] [facility]INT OF CARE | [facility] | [address] | | | TESTS | | | [...] [facility] | [address] | [place] [address] | | | SERVICES, CORE | LESLY [...] (H) | 60 - 99 mg/dL | [facility] - | | | GLUCOSE, | | [...] [facility] | [address] | [place], [place] | | | [facility] [place] OF JAKY | [facility] | [address] | | | TESTS | | | [...] - [facility] | [address] | [place], [place] | | | [facility] | [facility] | [address] | | | TESTS | | | [...] [facility] | [address] | [place] [address] | | | SERVICES, CORE | LESLY [...] [facility] | [address] [facility] HOSPITAL | [place] [address] | | | SERVICES, CORE | [address] [...] [facility] | [address] | [place] [address] | | | SERVICES, CORE | [address] | | | + + + + + MAGNESIUM, PLASMA (11/15/2015 5:49 AM PDT) + +-------+ + + + | Component | Value | Ref Range | Performed | Pathologist | | | | | At | Signature | + +-------+ + + + | MAGNESIUM,P | 2.2 | 1.8 - 2.5 mg/dL | IAORIN | | | LASMA | | | [...] | [facility] | [address] | [place] [address] | | | SERVICES, CORE | LESLY [...] [facility] | [address] | [place] [address] | | | SERVICES, CORE | LESLY [...] AMES | [address] | [place], [place] | | | [facility] | [address] | [address] | | | TESTS | | | [...] [facility] | [address] [facility] | [place] [address] | | | SERVICES, LYDIA | LESLY [...] [facility] | [address] | [place], [place] | | | JUSTINE [facility]WN [facility] CARE | [facility] | [address] | | | TESTS | | | [...] [facility] | [address] | [place], [place] | | | [facility] | [address] | [address] | | | TESTS | | | [...] | [facility] | [address] | [place] [address] | | | SERVICES, CORE | LESLY [...] [facility] | [address] | [place], [place] | | | [facility] | [address] | [address] | | | TESTS | | | [...] [facility] | [address] | [place] [address] | | | SERVICES, CORE | LESLY [...] [facility] | [address] | [place] [address] | | | SERVICES, CORE | PARK [...] | [facility] | [address] | [place] [address] | | | SERVICES, CORE | LESLY [...] [facility] | [address] | [place] [address] | | | SERVICES, CORE | LESLY [...] AMES | [address] | [place], [place] | | | [facility] | [address] | [address] | | | TESTS | | | [...] [facility] | [address] | [place], [place] | | | [facility] | [address] | [address] | | | TESTS | | | [...] [facility] | [address] | [place], [place] | | | JUSTINE DAWN OF [facility] | [address] | [address] | | | TESTS | | | [...] [facility] | [address] | [place], [place] | | | [facility] | [address] | [address] | | | TESTS | | | [...] [facility] | [address] | [place] [address] | | | SERVICES, CORE | PARK [...] [facility] | [address] | [place] [address] | | | SERVICES, CORE | PARK [...] [facility] | [address] [facility] | [place] [address] | | | SERVICES, CORE | PARK [...] [facility] | [address] | [place] [address] | | | SERVICES, CORE | LESLY [...] [facility] | [address] | [place] [address] | | | SERVICES, CORE | PARK [...] [facility] | [address] [facility] | [place] [address] | | | CLAIRE, LYDIA | LESLY [...] [facility] | [address] | [place] [address] | | | LYDIA RANGEL | LESLY [...] + | [facility] | [address] | [place] [address] | | | SERVICES, CORE | LESLY [...] [facility] | [address] | [place], [place] | | | [facility] CARE | [facility] | [address] | | | TESTS | | | [...] AMES | [address] | [place], [place] | | | [facility] | [address] | [address] | | | TESTS | | | [...] AMES | [address] | [place], [place] | | | ABRAHAN DAWN | [facility] | [address] | | | TESTS | | | [...] [facility] | [address] | [place], [place] | | | [facility] | [address] | [address] | | | TESTS | | | [...] [facility] | [place] [address] | | | SERVICES, CORE | PARK [...] [facility] | [place] [address] | | | SERVICES, CORE | PARK [...] | [facility] | [address] | [place] [address] | | | SERVICES, CORE | PARK [...] [facility] | [address] | [place] [address] | | | SERVICES, CORE | [...] [facility] | [address] | [place], [place] | | | [facility] OF [place] | [address] | [address] | | | TESTS | | | [...] [facility] | [address] | [place] [address] | | | SERVICES, CORE | LESLY [...] [facility] | [address] | [place] [address] | | | SERVICES, CORE | PARK [...] [facility] | [address] | [place] [address] | | | SERVICES, CORE | PARK [...] [facility] | [address] | [place] [address] | | | CLAIRE, LYDIA | LESLY [...] [facility] | [address] | [place], [place] | | | [facility] | [address] | [address] | | | TESTS | | | [...] [facility] | [address] | [place], [place] | | | [facility] | [address] | [address] | | | TESTS | | | [...] [facility] | [address] [facility] | [place] [address] | | | SERVICES, LYDIA | LESLY [...] - [facility] | [address] | [place], [place] | | | [facility] | [facility] | [address] | | | TESTS | | | [...] [facility] | [address] | [place] [address] | | | SERVICES, CORE | PARK [...] [facility] | [address] | [place] [address] | | | SERVICES, CORE | PARK [...] | [facility] | [address] | [place] [address] | | | SERVICES, CORE | PARK [...] [facility] | [address] | [place] [address] | | | SERVICES, CORE | LESLY [...] [facility] | [address] | [place] | | | [facility] | [address] | [address] | | | TESTS | | | [...] [facility] | [address] | [place] [address] | | | SERVICES, LYDIA | LESLY [...] [facility] | [address] | [place] | | | JUSTINE DAWN OF JAKY | [facility] | [address] | | | TESTS | | | [...] [facility] | [address] | [place], [place] | | | [facility] | [address] | [address] | | | TESTS | | | [...] | [facility] | [address] | [place] [address] | | | SERVICES, CORE | LESLY [...] [facility] | [address] | [place] | | | [facility] | [facility] | [address] | | | TESTS | | | [...] [facility] | [address] | [place] [address] | | | SERVICES, CORE | LESLY [...] [facility] | [address] [facility] | [place] [address] | | | SERVICES, CORE | PARK [...] [facility] | [address] | [place] [address] | | | LYDIA RANGEL | LESLY [...] [facility] | [address] | [place] [address] | | | SERVICES, CORE | LESLY [...] + | [facility] | [address] | [place] [address] | | | SERVICES, CORE | PARK [...] [facility] | [address] | [place] [address] | | | CLAIRE, LYDIA | LESLY [...] AMES | [address] | [place] | | | [facility] | [facility] | [address] | | | TESTS | | | [...] [facility] | [address] | [place], [place] | | | [facility] CARE | [address] | [address] | | | TESTS | | | | + + + + + X-RAY PORTABLE CHEST PICC LINE CHECK (11/09/2015 3:12 PM PDT) + + + + + + | Component | Value | Ref Range | Performed | Pathologist | | | | | At | Signature | + + + + + + | XRAY | EXAM: OH CHEST PICC LINE | | | | [...] and meds | | | Procedure location: Unit:[facility] Room: 13 Providers: PICC Nurse | | [...] | pause verifies correct patient, procedure, equipment, director sales support | | | and site/side marked as [...] | area Cephalic vein. Catheter lot number: [id number] with a length of | | | [...] [facility] | [address] | [place], [place] | | | [facility] CARE | [address] | [address] | | | TESTS | | | [...] [facility] | [address] | [place] [address] | | | SERVICES, CORE | LESLY [...] AMES | [address] | [place], [place] | | | [facility] | [address] | [address] | | | TESTS | | | [...] + | [facility] | [address] | [place] [address] | | | SERVICES, LYDIA | LESLY [...] [facility] | [address] | [place] [address] | | | LYDIA RANGEL | LESLY [...] [facility] | [address] | [place] [address] | | | SERVICES, CORE | PARK [...] [facility] | [address] | [place] [address] | | | LYDIA RANGEL | LESLY [...] [facility] | [address] | [place], [place] | | | [facility] | [address] | [address] | | | TESTS | | | [...] [facility] | [address] | [place] | | | [facility] | [address] | [address] | | | TESTS | | | [...] [facility] | [address] | [place] [address] | | | SERVICES, CORE | PARK [...] [facility] | [address] | [place] [address] | | | SERVICES, CORE | LESLY [...] | [facility] | [address] | [place] [address] | | | SERVICES, LYDIA | LESLY [...] [facility] | [address] | [place], [place] | | | JUST[facility]WN OF J[facility]Y | [facility] | [address] | | | TESTS | | | [...] [facility] | [address] | [place], [place] | | | [facility] | [address] | [address] | | | TESTS | | | [...] [facility] | [address] | [place] | | | [facility] OF [facility] | [facility] | [address] | | | TESTS | | | [...] | [facility] | [address] | [place] [address] | | | SERVICES, CORE | LESLY [...] [facility] | [address] | [place] [address] | | | SERVICES, CORE | PARK [...] [facility] | [address] | [place] [address] | | | SERVICES, CORE | PARK [...] [facility] | [address] | [place] [address] | | | SERVICES, LYDIA | LESLY [...] [facility] | [address] | [place] [address] | | | SERVICES, CORE | PARK [...] [facility] | [address] | [place] [address] | | | LYDIA RANGEL | LESLY [...] [facility] | [address] | [place] [address] | | | LYDIA RANGEL | LESLY [...] [facility] | [address] | [place], [place] | | | [facility] | [address] | [address] | | | TESTS | | | [...] + | [facility] | [address] | [place] [address] | | | SERVICES, CORE | LESLY [...] [facility] | [address] | [place] | | | [facility] | [address] | [address] | | | TESTS | | | [...] [facility] | [address] | [place], [place] | | | [facility] | [address] | [address] | | | TESTS | | | [...] [facility]PT [facility] | [address] | [place], [place] | | | CARDIOLOGY | [address] | [address] | | + + + + + [...] [facility] | [address] | [place] | | | [facility] | [address] | [address] | | | TESTS | | | [...] [facility] | [address] | [place] [address] | | | SERVICES, CORE | PARK [...] [facility] | [address] | [place] [address] | | | SERVICES, CORE | PARK [...] | [facility] | [address] | [place] [address] | | | SERVICES, CORE | LESLY [...] [facility] | [address] | [place] | | | [facility] | [address] | [address] | | | TESTS | | | [...] [facility] | [address] | [place] [address] | | | SERVICES, CORE | PARK [...] [facility] | [address] [facility] | [place] [address] | | | LYDIA RANGEL | LESLY [...] [facility] | [address] | [place] [address] | | | SERVICES, CORE | [address] | | | + + + [...] [facility] | [address] | [place] [address] | | | CLAIRE, LYDIA | LESLY [...] [facility] | [address] | [place] | | | [facility] | [address] | [address] | | | TESTS | | | [...] [facility] | [address] | [place] [address] | | | SERVICES, CORE | PARK [...] [facility] | [address] | [place] [address] | | | SERVICES, CORE | [address] | | | + + + + + MAGNESIUM, PLASMA (11/07/2015 3:17 AM PDT) + +-------+ + + + | Component | Value | Ref Range | Performed | Pathologist | | | | | At | Signature | + +-------+ + + + | MAGNESIUM,P | 1.9 | 1.8 - 2.5 mg/dL | IAOIRN | | | LASMA | | | [...] [facility] | [address] [facility] | [place] [address] | | | SERVICES, CORE | PARK [...] | [facility] | [address] | [place] [address] | | | SERVICES, CORE | PARK [...] ED | | | | | | pantograph operator at 12:33 AM by | | [...] [facility] | [address] | [place], [place] | | | [facility] CARE | [address] | [address] | | | TESTS | | | [...] + | [facility] | [address] [facility] [address] | [place], [place] | | | JUST[facility] OF CARE | [facility] | [address] | | | TESTS | | | [...] [facility] | [address] | [place] [address] | | | CLAIRE, LYDIA | LESLY [...] + | [facility] | [address] [facility] | [place], [place] | | | CARDIOLOGY | [address] | [address] | | + + + + + [...] [facility] | [address] | [place] [address] | | | LYDIA RANGEL | LESLY [...] [facility] | [address] | [place] [address] | | | SERVICES, CORE | PARK [...] | [facility] | [address] [facility] | [place] [address] | | | SERVICES, CORE | PARK [...] [facility] | [address] | [place] [address] | | | SERVICES, CORE | [address] | | | + + + + + ED INFORMATION EXCHANGE (11/06/2015 1:26 PM PDT) + + + + + + | Component | Value | Ref Range | Performed | Pathologist | | | | | At | Signature | + + + + + + | [facility] | [id number] | | [facility] | | | | [id number] | | MEDICAL | | | | [...] | ---- 11/06/2015 | | | 13:25 [facility] [place] [facility] | | | [address]. Referral; Cellulitis 09/28/2015 15:39 HADLEY Akbar | [...] -Pain in left lower leg 09/13/2015 14:54 [facility] | | | Hospital Emergency [...] Location | | | ------ --------- 1 [facility] | | | [place] 9 [facility] 10 | | | Total Note: Visits indicate total known visits. | | | | | | --- | | + + + + + + + + | Performing | Address | City/State/Zipcode | Phone Number | | Organization | | | | + + + + + | [facility] | [address] | [place], [place] | [phone] | | [employer] | [address] | [address] | | + + + + + [...] 4:14 | | | | | dose, [facility] 11/08/15 at 1430 | | PM PDT [...] 7:51 | | | | | dose, [place] 11/18/15 at 0730 | | AM PDT [...] | | First dose on [facility] 11/08/15 at | | PM PDT | [...] | | | oral, ONCE, 1 dose, [facility] 11/08/15 | | PM PDT | | [...] | | ONCE, 1 dose, [facility] 11/08/15 at 1900 | | PM PDT [...] | | | | | 1 dose, [facility] 11/06/15 at 2115 | | PM PDT [...]
--- OUTSIDE RECORDS SUMMARY | ~2019-12-19 | XMS | Encounter Summary ---
Demographics + + + | Address | [address] | | | [place] [address] | + + + | Home Phone [...] [place], [place] | | | | | [address] | | + + + + + [...] | | [address] | [place], [place] | | | | | Mailcode: [facility] | [address] | | | | | [facility] | [phone] | | | | | and Erick | | | | | | [address] | | | | | | [facility] [place] | | | | | | [address] | | | | | | [phone] | | | +--------+ + + + [...] [place] | | | | | | [address] | | | | | | [phone] | | | | | | | | +--------+---------+ + + + documented as of this encounter Visit Diagnoses Not on filedocumented in this encounter"
--- OUTSIDE RECORDS SUMMARY | ~2019-12-19 | XMS | Encounter Summary ---
Demographics + + + | Address | [address] | | | [place] [address] | + + + | Home Phone [...] [place], [place] | | | | | [address] | | + + + + + | Ellie Vang | ECON | Unknown | | + + + + + Care Team Providers + +------+ + | Care Lottery Office Manager Name | Role | Phone | [...] 2014 | | Center at [facility] [address] | [facility] [address] | Review (Pre-surgery | | | | [address] | [address] [place], [place] | meal plan. To be | | | | Mailcode: [place] | [address] | provided to home | | | | for Health and | | health nurse. ) | | | | [facility], [address] | | | | | | [place], [place] | | | | | | [address] | | | | | | [phone] | | | +--------+ + + + [...] Flannery | | | | | | [place] | | | | | | [address] | | | | | | [phone] | | | | | | | | +--------+---------+ + + + documented as of this encounter Visit Diagnoses Not on filedocumented in this encounter"
--- OUTSIDE RECORDS SUMMARY | ~2019-12-19 | XMS | Encounter Summary ---
Demographics + + + | Address | [address] | | | [place] [address] | + + + | Home Phone [...] [place], [place] | | | | | [address] | | + + + + + | Ellie Vang | ECON | Unknown | | + + + + + Care Team Providers + +------+ + | Care Cork Painter And Grader Name | Role | Phone | [...] | | Jacy Flannery | [facility] | | | | | Mailcode: [place] | [place], [place] | | | | | [facility] and | [address] | | | | | [facility], [facility] 2 | [phone] | | | | | [place], [place] | | | | | | [address] | | | | | | [phone] | | | +--------+ + + + [...] Flannery | | | | | | [place], [place] | | | | | | [address] | | | | | | [phone] | | | | | | | | +--------+---------+ + + + documented as of this encounter Visit Diagnoses Not on filedocumented in this encounter"
--- OUTSIDE RECORDS SUMMARY | ~2019-12-19 | XMS | Encounter Summary ---
Demographics + + + | Address | [address] | | | [place] [address] | + + + | Home Phone [...] [place], [place] | | | | | [address] | | + + + + + | Ellie Vang | ECON | Unknown | | + + + + + Care Team Providers + +------+ + | Care Manager Of Procurement Name | Role | Phone | + [...] | 2015 | Visit | Center at [facility] [address] | | (Primary Dx) | | | | [address] | | | | | | Mailcode: Center | | | | | | for Health and | | | | | | [facility], [facility] 2 | | | | | | [place], [place] | | | | | | [address] | | | | | | [phone] | | | +--------+---------+ + + + [...] of Class: 2:00 until 3:00 (60 minutes ykyl-eh-covi with patient) OBJECTIVE: Height: Ht Readings from [...] or sharing information. Yes Y[address], [facility], [place] Pager# [phone] documented in this enc ounter Plan of [...] [place] | | | | | | [address] | | | | | | [phone] | | | | | | | | +--------+---------+ + + + documented as of this encounter Visit Diagnoses + + | Diagnosis | + + | Morbid obesity (HCC) - Primary Morbid obesity | + + documented in this encounter
--- OUTSIDE RECORDS SUMMARY | ~2019-12-19 | XMS | Encounter Summary ---
Demographics + + + | Address | [address] | | | [place] [address] | + + + | Home Phone [...] [place], [place] | | | | | [address] | | + + + + + | Ellie Vang | ECON | Unknown | | + + + + + Care Team Providers + +------+ + | Care Compounding Pharmacy Technician Name | Role | Phone [...] Center at [facility] [address] | MD [address] [facility] | | | | | Jacy Flannery | Ryan Lesly | | | | | Mailcode: Corinne | [place], [place] | | | | | [facility] and | [address] | | | | | [facility] 2 | [phone] | | | | | [place], [place] | | | | | | [address] | | | | | | [phone] | | | +--------+ + + + [...] Flannery | | | | | | [place] | | | | | | [address] | | | | | | [phone] | | | | | | | | +--------+---------+ + + + documented as of this encounter Visit Diagnoses Not on filedocumented in this encounter"
--- OUTSIDE RECORDS SUMMARY | ~2019-12-19 | XMS | Encounter Summary ---
Demographics + + + | Address | [address] | | | [place] [address] | + + + | Home Phone [...] [place], [place] | | | | | [address] | | + + + + + | Ellie Vang | ECON | Unknown | | + + + + + Care Team Providers + +------+ + | Care Ventilated Rib Fitter Name | Role | Phone | [...] | 2018 | Visit | Center at [facility] [address] | [address] [facility] | obesity ([facility]), BMI | | | | [facility] | [facility] [address] | 88 (Primary Dx); | | | | for Good Photo and | [place], [place] | Type 2 diabetes | | | | [facility], [facility] 2 | [address] | mellitus without | | | | [place], [place] | | complication, with | | | | [address] | | long-term current | | | | [phone] | | use of insulin | | | | | | ([facility]); S/P gastric | | | [...] Patient referred by: [place] [address] Documented time of visit: 1:30 to 2:00 (30 minutes [id number]-dv-ilgp with patient) Surgery: Gastric Bypass Date of [...] vagina Allergic rhinitis Anemia Anxiety Bipolar disorder ([facility]) Chronic wound infection of abdomen from 2010 Cough Depression Diverticulitis of colon Dizziness Glaucoma Heart burn Hemorrhoids Hernia of abdominal wall Incisional hernia, incarcerated 2012 Insomnia Irregular periods Kidney stone Leaking of urine Leg sore Lymphedema Morbid obesity with body mass index of 70 and over in adult ([facility]) Myalgia and myositis Nausea Neck pain Numbness Osteoarthritis of knee Palpitations Pneumonia Shortness of breath Staphylococcal infection Stroke ([facility]) TIA (transient ischemic attack) due [...] multivitamin & mineral (with iron) supplement, 2/day -[id number] mg calcium citrate with vitamin D/day (take [...] in [address],[place] Pager# [phone] Phone: [phone] documented in this en counter Plan of Treatment +--------+---------+ + + + | Date | Type | Specialty | Care Team | Description | +--------+---------+ + + + | 03/15/ | Office | Cardiology | Randell Franks, | | | 2019 | Visit | | [phone] | | | | | | [place], [place] | | | | | | [address] | | | | | | [phone] | | | | | | | [...]
--- OUTSIDE RECORDS SUMMARY | ~2019-12-19 | XMS | Encounter Summary ---
Demographics + + + | Address | [address] | | | [place] [address] | + + + | Home Phone [...] | [facility] | [...] Providers + +------+ + | Care Rehabilitation Consultant Name | Role | Phone | [...] | specified | MD [address] | WATERPROOFER HELPER [address] | | | | | diseases of | [address] | [place], [place] | | | | | liver | [place], | [address] [place] | | | | | Procedures | [place] | [place] | | | | | office visit | [address] | [address] Phone: | | | | | | Phone: | [phone] | | | | | | [phone] | Fax: | | | | | | Fax: | [phone] | | | | | | [phone] | | +--------+--------+ + + + + [...] | [address] [place] | [place], [place] [address] | Dx); History of | | | | [address] [place], [place] | [place] | Frandy-en-Y gastric | | | | [address] | [address] | bypass; Itching; | | | | [phone] | | Diarrhea, | | | | [...] en Y gastric bypass done 03/03/2018 at [facility]. She reports that approximately 3 months ago, [...] well. She is scheduled to see her [facility] surgeons within the next 2 [...] right ventricular diastolic dysfunction (HCC) 10/26/2015 Overview: [facility] Last Assessment & Plan: Patient with morbid [...] o besity Pickwickian syndrome Recent admission to [facility] for 100lb weight gain- DC on diuresis on 03/06/2016- she feel improved She was on Metolazone and Torsem jaiver prior to hospitalization- both have better bioavailability [...] with morbid obesity, she is enrolled in [facility] bariatric program. She has lost approximately [...] obesity (HCC) 06/16/2013 Last Assessment & Plan: [facility] Bariatric Program, has lost 50lbs. STEFANO (iron deficiency anemia) 02/03/2019 Overview: Presumed due to menses. Venofer 200 qd x 30 October 2015 [facility] Last Assessment & P sharon: Hgb appears [...] She is to follow-up with surgeons at [facility] as planned. Patient is to call with [...] F | | | | | | [place] [address] | | | | | | [phone] | | | | | | | [...]
--- OUTSIDE RECORDS SUMMARY | ~2019-12-19 | XMS | Encounter Summary ---
Demographics + + + | Address | [address] | | | [place] [address] | + + + | Home Phone [...] [place], [place] | | | | | [address] | | + + + + + | Ellie Vang | ECON | Unknown | | + + + + + Care Team Providers + +------+ + | Care Carpet Winder Name | Role | Phone | [...] | | | | | | [place], [place] | | | | | | [address] | | | | | | [phone] | | | +--------+ + + + [...] | | | | | | [place], [place] | | | | | | [address] | | | | | | [phone] | | | | | | | | +--------+---------+ + + + documented as of this encounter Visit Diagnoses Not on filedocumented in this encounter"
--- OUTSIDE RECORDS SUMMARY | ~2019-12-19 | XMS | Encounter Summary ---
Demographics + + + | Address | [address] | | | [place] [address] | + + + | Home Phone [...] [place], [place] | | | | | [address] | | + + + + + | Ellie Vang | ECON | Unknown | | + + + + + Care Team Providers + +------+ + | Care Slide Fasteners Inspector Name | Role | Phone | [...] | | | [address] | [place], [place] | | | | | Mailcode: [place] | [address] | | | | | [facility] | | | | | | [facility] 2 | | | | | | [place], [place] | | | | | | [address] | | | | | | | [...] [place] | | | | | | [place] | | | | | | [address] | | | | | | [phone] | | | | | | | | +--------+---------+ + + + documented as of this encounter Visit Diagnoses Not on filedocumented in this encounter"
--- OUTSIDE RECORDS SUMMARY | ~2019-12-19 | XMS | Encounter Summary ---
Demographics + + + | Address | [address] | | | [place] [address] | + + + | Home Phone [...] | Author | [facility] | | | and Jeffana | + + + | Organization | [facility] | | | and Jeffana [...] Providers + +------+ + | Care Air Brake Man Name | Role | Phone | [...] + | 10/26/ | Virtual | [facility] | Sulema Altamirano | Chronic diastolic | | 2019 | Office | CARDIOLOGY [place] | [address] | heart failure (HCC) | | | Visit | [address] | [address] | (Primary Dx); | | | | [address] | [place] [address] | History of sinus | | | | [place] | [phone] | tachycardia; History | | | | [address] | | of stroke; HTN, | | | | [phone] | | goal below 130/80; | | [...] minutes of medical discussion via telephone visit ([id number]) Patient has not been seen in office [...] dysfunction with previous dysfunctional RV treated at [facility] with diuresis and hospitalization for one month., sleep apnea treated with BiPAP, t ype II diabetes now resolved with weight loss, hypothyroidism, previous morbid obesity with alveolar hypoventilation, Frandy-en-Y gastric bypass surgery 02/2018, osteoarthritis,DVT and PE 2016, hypokalemia and hyperuricemia which is being followed by economic forecaster Dr. Fu, Her current and previous testing [...] to lose weight. She followed up with electrical construction project manager at [facility], Dr. Franks, who reported that her [...] weight loss. Hypothyroidism,followed by Dr. Kat alva, electrical construction project manager at [facility]) . Denies excessive thirst [...] pain and hernia pain Lives in [facility] ith her mother who smokes. . Sister is pet caregiver. Grandchildren ages 4 and 7 live with he r daughter and son-in-law. Disabled , on disability .01/24/2019: working with [facility] to get her own place. Outpatient Medications Prior to Visit Medication Sig Dispense Refill ALPRAZolam (XANAX) 0.5 mg tablet Take 0.5-1 mg by mouth 3 times daily as needed. ascorbic acid (VITAMIN C) 500 MG tablet Take 1,000 mg by mouth Daily. atenolol (TENORMIN) 50 mg tablet Take 1 tablet by mouth nightly. 30 tablet 11 Fmxjfpm-Ljbzsvqcq-Csserjg D (CITRACAL CALCIUM+D PO) Take 4 tablets [...] mL every day by injection route. rizatriptan (MAXALT-WET WHEELER) 5 mg disintegrating tablet Take 5 mg by mouth as needed for Mi graine. May repeat in 2 hours if needed spironolactone (ALDACTONE) 50 mg tablet Take 50 mg by mouth Daily. thyroid (SYSTEMS PROTECTION TECHNICIAN THYROID) 30 mg tablet SYSTEMS PROTECTION TECHNICIAN Thyroid 30 mg tablet TAKE ONE [...] Ascending aorta not well seen Echo: 02/16/2017: ([facility]): normal EF of 60-65% , accurate assessment of diastolic function i mpeded by poor tissue doppler, RV normal in size and function, with no significant valvular disease, and aortic root, ascending aorta , and aortic arch normal Echo: 01/02/2016 ([facility]): TDS, cardiac chamber dimensions grossly NML, LVEF >70%, rodriguez tolic function normal for patient. Unable to assess segmental wall motion. RV grossly norm al. Aortic valve sclerotic, no As/AI. Mitral and tricuspid valves grossly normal. Trace T R. No pericardial effusion VASCULAR TESTING AND PROCEDURES Left lower extremity DVT, presumed PE: 10/2015 [facility]. treated with heparin drip and Coumadin 10 in hospital, with Coumadin 6 months as outpatient, ASA 81 mg continued Venous US: right leg, 04/28/2016: No evidence of DVT. EKG EKG 10/27: ([facility]) Normal sinus rhythm. Normal EKG. Rate 93 bpm, ME 172 ms, QRS 90 ms, QTC 465 ms personally reviewed by me in the office today) EK02/05: Sinus tachycardia, otherwise normal. Rate 160 bpm, ME 174 ms, QRS 74 ms, QTC 451 ms (personally reviewed by me in the office today and no significant change seen fro m EKG done in October 2016 except for faster heart rate) EK04/26/2018: Normal sinus rhythm, rate 74 bpm, ME 182 ms, QRS 96 ms, QTC 472 ms, tracin g personally reviewed by me, and compared to previous EKG, heart rate is now better controll ed, otherwise similar morphology EK04/28/2019: Normal sinus rhythm, right axis. Rate 74 bpm, ME 170 ms, QRS 88 ms, QTC 45 [...] elevated, requiring increased calcium dosing from her electrical construction project manager. She is being closely monitored with her [...] she needs to be retested for sleep braille teacher ea given her large weight loss, and [...] continuity of care purp ose Maryse MARKS [facility] Cardiology 10/28/2019 ERdomerritt han in this [...] [address]HE[address] | | | | | | [place] [address] | | | | | | [phone] | | | | | | | [...]
--- OUTSIDE RECORDS SUMMARY | ~2019-12-19 | XMS | Encounter Summary ---
Demographics + + + | Address | [address] | | | [place] [address] | [...] | Organization | [facility] | | [...] Team Providers + +------+ + | Care Singing Messenger Name | Role | Phone | [...] | Services | Disease | Chronic | [facility], | [facility] | | | Required | | diastolic | GENERAL MATCHER [address] | SLEEP | | | | | heart | [address] | DISORDERS LAB | | | | | failure | [address] | [address] | | | | | (HCC) | [place], [place] | [address] | | | | | History of | [address] | [place], [place] | | | | | sinus | Phone: | [phone] | | | | | tachycardia | [phone] | Phone: | | | | | History of | Fax: | [phone] | | | | | bariatric | [phone] | Fax: | | | | | surgery | | [phone] | | | | | Sleep apnea [...] + + | 04/28/ | Office | [facility] | Sulema Altamirano | Chronic diastolic | | 2019 | Visit | CARDIOLOGY [place] | [address] | heart failure (HCC) | | | | [address] | [address] | (Primary Dx); | | | | [address] | [place] [address] | History of sinus | | | | [place], [place] | [phone] | tachycardia; History | | | | [address] | | of stroke; HTN, | | | | [phone] | | goal below 130/80; | | [...] have referred you to Dr. Rascon at [place] [facility] , call [phone] for an appointment next week I made [...] dysfunction with previous dysfunctional RV treated at [facility] with diuresis and hospitalization for one month., sleep apnea treated with BiPAP, t ype II diabetes, hypothyroidism, morbid obesity with alveolar hypoventilation, Frandy-en-Y ga stric bypass surgery 02/2018, osteoarthritis,DVT and PE 2016, hypokalemia and hyperuricemia which is being followed by accountant Dr. Fu, and SELINA Escobar. Her current [...] will be seeing a surgeon a barron [facility] on May 05. In the meantime she has had difficulty with dehydration and keeping f ood down, and she receives IV fluids through PICC line 3 times per week and has also been tr eated with Phenergan. Unfortunately her PCP, Dr. Cardenas is still on maternity leave, and she has been seen by [facility] providers who are covering for her. She reports today that she never heard from the [place] [facility] providers to her sup posed [...] surgery, and weight down 123 pounds since [facility] 2017 when weighed 394 lbs. [...] hypothyroidism,followed by Dr. Franks, endocrin ologist at [facility]) . Denies excessive thirst or hunger. Psychiatric/Behavioral: [...] knee pain and hernia pain Lives in [facility] her mother who smokes. . Sister is landcare facilitator. Grandchildren ages 4 and 7 live with he r daughter and son-in-law. Disabled , on disability .01/24/2019: working with [employer] to get her own place. Outpatient Medications [...] film Suboxone 2 mg-0.5 mg sublingual film Otdlyna-Fzabhdzjy-Tirnakx D (CITRACAL CALCIUM+D PO) Take 2 tablets [...] Needle (NOVOFINE) 32G X 6 MM [facility] Novofine 32 32 gauge x 1/4" needle [...] monohydrate/macrocrystals 100 m g capsule nystatin (NYSTATIN) 277157 UNIT/GM powder Nyamyc 100,000 unit/gram topical powder [...] Take 30 mg by mouth Daily. thyroid (COURT OF APPEALS JUDGE THYROID) [address] OF [address] JUDGE Thyroid 30 mg tablet TAKE ONE TABLET [...] Left lower extremity DVT, presumed PE: 10/2015 [facility]. treated with heparin drip and Coumadin 10 in hospital, with Coumadin 6 months as outpatient, ASA 81 mg continued Venous US: right leg, 04/28/2016: No evidence of DVT. EKG EKG 10/27: ([facility]) Normal sinus rhythm. Normal EKG. Rate 93 bpm, CO 172 ms, QRS 90 ms, QTC 465 ms personally reviewed by me in the office today) EK02/05: Sinus tachycardia, otherwise normal. Rate 160 bpm, CO 174 ms, QRS 74 ms, QTC 451 ms (personally reviewed by me in the office today and no significant change seen fro m EKG done in October 2016 except for faster heart rate) EK04/26/2018: Normal sinus rhythm, rate 74 bpm, CO 182 ms, QRS 96 ms, QTC 472 ms, tracin g personally reviewed by me, and compared to previous EKG, heart rate is now better controll ed, otherwise similar morphology EK04/28/2019: Normal sinus rhythm, right axis. Rate 74 bpm, CO 170 ms, QRS 88 ms, QTC 45 [...] GFR 92, albumin 3.3. Magnesium: 1.8 Labs: 10/12/2018:([facility]) CMP: Glucose 103, BUN 9, creatinine 0.7, [...] heard from the sleep providers at the [place] [facility] in [place], so I have referred her again to Dr. Rascon at the [place] [facility] clinic, and she ne [...] past surgical history. Problem list. Maryse MARKS [facility] Cardiology 04/28/2019 docume nted in this encounter [...] RICHEY | | | | | | [place] [address] | | | | | | [phone] | | | | | | | [...] | | | | | by [employer] [place] Read Only, | | | | | | [employer] ([id number]), | | | | | | restaurant expeditor [place] | | | | | | ([id number]) on 04/28/2019 | | | | | [...]
--- OUTSIDE RECORDS SUMMARY | ~2019-12-19 | XMS | Encounter Summary ---
Demographics + + + | Address | [address] | | | [place] [address] | + + + | Home Phone [...] [place], [place] | | | | | [address] | | + + + + + | Ellie Vang | ECON | Unknown | | + + + + + Care Team Providers + +------+ + | Care Electric Motor Fitter Name | Role | Phone | [...] [place] | | | | | | [place], [place] | | | | | | [address] | | | | | | [phone] | | | +--------+ + + + [...] Flannery | | | | | | [place], [place] | | | | | | [address] | | | | | | [phone] | | | | | | | | +--------+---------+ + + + documented as of this encounter Visit Diagnoses Not on filedocumented in this encounter"
--- OUTSIDE RECORDS SUMMARY | ~2019-12-19 | XMS | Encounter Summary ---
Demographics + + + | Address | [address] | | | [place] [address] | + + + | Home Phone [...] [place], [place] | | | | | [address] | | + + + + + | Ellie Vang | ECON | Unknown | | + + + + + Care Team Providers + +------+ + | Care Energy Attorney Name | Role | Phone | [...] Medical Records | | 2013 | | [place] at [facility] [address] | [address] [facility] | Review ([facility] - | | | | [address] | [address] | OUTSIDE RECORDS) | | | | Mailcode: [place] | [place], [place] | | | | | [facility] and | [address] | | | | | [place] [address] | [phone] | | | | | [place], [place] | | | | | | [address] | | | | | | [phone] | | | +--------+ + + + [...] Flannery | | | | | | [place], [place] | | | | | | [address] | | | | | | [phone] | | | | | | | | +--------+---------+ + + + documented as of this encounter Visit Diagnoses Not on filedocumented in this encounter"
--- OUTSIDE RECORDS SUMMARY | ~2019-12-19 | XMS | Encounter Summary ---
Demographics + + + | Address | [address] | | | [place] [address] | + + + | Home Phone [...] | Organization | [facility] | | | and Jeffana [...] Team Providers + +------+ + | Care Gravel Truck Driver Name | Role | Phone | + +------+ + PCP | Unavailable | + +------+ + Encounter Details +--------+ + + + + | Date | Type | Department | Care Team | Description | +--------+ + + + + | 10/07/ | Orders Only | [facility] | Dharmesh Escobar, | | | 2017 | | NEPHROLOGY [place] | BENCH CHEMIST [address] | | | | | [address] | [address] | | | | | [address] [place], [place] | [place] | | | | | [address] | [address] | | | | | [phone] | [phone] | | | | | | | [...] F | | | | | | [place] [address] | | | | | | [phone] | | | | | | | [...] | | | LAB | | | [place] | | | | | + +---------+ [...]
--- OUTSIDE RECORDS SUMMARY | ~2019-12-19 | XMS | Encounter Summary ---
Demographics + + + | Address | [address] | | | [place] [address] | + + + | Home Phone [...] [place], [place] | | | | | [address] | | + + + + + | Ellie Vang | ECON | Unknown | | + + + + + Care Team Providers + +------+ + | Care Shorthand Reporter Name | Role | Phone | + +------+ + | Kenyatta Cardenas MD | PCP | | + +------+ + Encounter Details +--------+ + + + + | Date | Type | Department | Care Team | Description | +--------+ + + + + | 03/10/ | Pharmacy | [facility] | | | | 2018 | Visit | [facility] | | | | | | [address] | | | | | | Mailcode: Center | | | | | | [facility] and | | | | | | [facility] 1 | | | | | | [place], [place] | | | | | | [address] | | | | | | [phone] | | | +--------+ + + + [...] [place]annery | | | | | | [place], [place] | | | | | | [address] | | | | | | [phone] | | | | | | | | +--------+---------+ + + + documented as of this encounter Visit Diagnoses Not on filedocumented in this encounter"
--- OUTSIDE RECORDS SUMMARY | ~2019-12-19 | XMS | Encounter Summary ---
[...] [place], [place] | | | | | [address] | | + + + + + | Ellie Vang | ECON | Unknown | | + + + + + Care Team Providers + +------+ + | Care Campaign Assistant Name | Role | Phone | [...] 2018 | | Center at [facility] [address] | AC[address] | | | | | [address] | [address] [place], [place] | | | | | Mailcode: Center | [address] | | | | | for Health and | [phone] | | | | | [place] [address] | | | | | | [place], [place] | | | | | | [address] | | | | | | [phone] | | | +--------+ + + + [...] [place] | | | | | | [address] | | | | | | [phone] | | | | | | | | +--------+---------+ + + + documented as of this encounter Visit Diagnoses Not on filedocumented in this encounter"
--- OUTSIDE RECORDS SUMMARY | ~2019-12-19 | XMS | Encounter Summary ---
[...] [place], [place] | | | | | [address] | | + + + + + | Ellie Vang | ECON | Unknown | | + + + + + Care Team Providers + +------+ + | Care Road Contractor Name | Role | Phone | [...] [place] | | | | | [facility] | Lesly Gutiérrez [place], | | | | | Hospital Admitting | [place] [address] | | | | | Desk Located on the | [phone] | | | | | 9th floor | | | | | | [place], [place] | [place], | | | | | [address] | CARBONATION EQUIPMENT TENDER [address] | | | | | | [address] | | | | | | [facility] [place] | | | | | | [address] | | | | | | [phone] | | | | | | | | +--------+ + + + + Anesthesia Record + + + + + | Procedure Name | Responsible | Anesthesia Start | Anesthesia Stop Time | | | Anesthesiologist | Time | | + + + + + | OPEN VENTRAL HERNIA | Andie Hope MD | 08/19/19 1417 | 08/19/19 6956 | | REPAIR (N/A ) | | [...] | | | [place]; Endotracheal | CARBONATION EQUIPMENT TENDER | CARBONATION EQUIPMENT TENDER | | | Tube; 7.5; Oral; Cuffed; [...] Flannery | | | | | | [place], [place] | | | | | | [address] | | | | | | [phone] | | | | | | | [...]
--- OUTSIDE RECORDS SUMMARY | ~2019-12-19 | XMS | Encounter Summary ---
Demographics + + + | Address | [address] | | | [place] [address] | + + + | Home Phone [...] [place], [place] | | | | | [address] | | + + + + + | Ellie Vang | ECON | Unknown | | + + + + + Care Team Providers + +------+ + | Care Disposition Clerk Name | Role | Phone | [...] | | [address] | [place], [place] | | | | | Mailcode: [place] | [address] | | | | | for Health and | [phone] | | | | | [facility] 2 | | | | | | [place], [place] | | | | | | [address] | | | | | | [phone] | | | +--------+ + + + [...] Flannery | | | | | | [place], [place] | | | | | | [address] | | | | | | [phone] | | | | | | | | +--------+---------+ + + + documented as of this encounter Visit Diagnoses Not on filedocumented in this encounter"
--- OUTSIDE RECORDS SUMMARY | ~2019-12-19 | XMS | Encounter Summary ---
Demographics + + + | Address | [address] | | | [place] [address] | + + + | Home Phone [...] [place], [place] | | | | | [address] | | + + + + + | Ellie Vang | ECON | Unknown | | + + + + + Care Team Providers + +------+ + | Care Cloth Finishing Range Operator Chief Name | Role | Phone | [...] | Tiny, | | | | | [place] EST | Fadi Person DO | MD Randell | | | | | PATIENT | [address] | [address] | | | | | [address] | [address] | Ave | | | | | | [place], | [place], [place] | | | | | | [place] [address] | [address] | | | | | | Phone: | Phone: | | | | | | [phone] | [phone] | | | | | | Fax: | Fax: | | | | | | [phone] | [phone] | +--------+--------+ + + + + Encounter Details +--------+---------+ + + + | Date | Type | Department | Care Team | Description | +--------+---------+ + + + | 04/03/ | Office | Cardiology | Randell Franks, | Morbid obesity (HCC) | | 2014 | Visit | Preventive at [facility] | [address] | (Primary Dx); Type | | | | [address] | [place], [place] | 2 diabetes mellitus | | | | Mailcode: CH9A | [address] | without complication | | | | [facility] | [phone] | ([facility]) | | | | and [place], | | | | | | [address] | | | | | | [place], [place] | | | | | | [address] | | | | | | [phone] | | | +--------+---------+ + + + [...] 500 mg by mouth once daily. CALCIUM CRB&NOY-Z2-SNP61-GENIS ORAL Take 1 tablet by mouth two [...] Since I saw Ms. Livia snigh last, continues on phentermine and 100 mg topiramate BID with good appetite suppression an d no side effects. She reports undergoing a repeat heania repair 1 month ago without compli cations. The lastest recommendation from the Bariatric Surgery group is for her to lose "an other 50 lbs." No specific target weight has been documented, but if we use her last [facility] weight of 410 lbs, this would put her at 360 lbs before consideration for RYGBP. She is working with the bariatric surgery mailing machine operator to try to achieve this. She [...] visit Diet: healthy, working with [facility] mailing machine operator Exercise: "I walk everywhere." ROS: No [...] | | | | | | [place], [place] | | | | | | [address] | | | | | | [phone] | | | | | | | | +--------+---------+ + + + documented as of this encounter Visit Diagnoses + + | Diagnosis | + + | Morbid obesity (HCC) - Primary Morbid obesity | + + | Type 2 diabetes mellitus without complication (HCC) | + + documented in this encounter
--- OUTSIDE RECORDS SUMMARY | ~2019-12-19 | XMS | Encounter Summary ---
Demographics + + + | Address | [address] | | | [place] [address] | + + + | Home Phone [...] Organization | [facility] | | | and Jeffana [...] Providers + +------+ + | Care Stone Grader Name | Role | Phone | + +------+ + PCP | Unavailable | + +------+ + Encounter Details +--------+ + + + + | Date | Type | Department | Care Team | Description | +--------+ + + + + | 10/07/ | Orders Only | [facility] | Conversion | | | 2018 | | NEPHROLOGY [place] | Transaction, | | | | | [address] | Provider Unknown | | | | | [address] [place] [address] | | | | | | [address] | (Fax) | | | | | [phone] | | | +--------+ + + + [...] [address] | | | | | | [place] [address] | | | | | | [phone] | | | | | | | [...]
--- OUTSIDE RECORDS SUMMARY | ~2019-12-19 | XMS | Encounter Summary ---
Demographics + + + | Address | [address] | | | [place] [address] | + + + | Home Phone [...] [place], [place] | | | | | [address] | | + + + + + | Ellie Vang | ECON | Unknown | | + + + + + Care Team Providers + +------+ + | Care Tire Room Supervisor Name | Role | Phone [...] | | | | | obstruction | [place], | Mailcode: | | | | | or gangrene | [place] | [facility] Ab[facility] | [address] | Health and | | | | | pain, | Phone: | Healing, | | | | | unspecified | | Building 2 | | | | | abdominal | Fax: | [place], [place] | | | | | location | [phone] | [address] | | | | | Procedures | | Phone: | | | | | CONSULT TO | | [phone] | | | | | SURGERY - | | Fax: | | | | | GENERAL | | [phone] | +--------+--------+ + + + + Encounter [...] | | [address] | Ave [place], [place] | | | | | Mailcode: [place] | [address] | | | | | [facility] and | | | | | | [facility] 2 | | | | | | [facility] [place] | | | | | | [address] | | | | | | | [...] | | | | | | [place], [place] | | | | | | [address] | | | | | | [phone] | | | | | | | [...]
--- OUTSIDE RECORDS SUMMARY | ~2019-12-19 | XMS | Encounter Summary ---
Demographics + + + | Address | [address] | | | [place] [address] | + + + | Home Phone [...] [place], [place] | | | | | [address] | | + + + + + | Ellie Vang | ECON | Unknown | | + + + + + Care Team Providers + +------+ + | Care Adult Day Care Worker Name | Role | Phone | [...] | | 2019 | | Preventive at [facility] | MD [address] | (PHENTERMINE 37.5 mg | | | | [address] | [place], [place] | ) | | | | Mailcode: [facility] | [address] | | | | | [facility] | [phone] | | | | | and [place], | | | | | | Building [address] | | | | | | [place], [place] | | | | | | [address] | | | | | | [phone] | | | +--------+--------+ + + + [...] [place] | | | | | | [address] | | | | | | [phone] | | | | | | | | +--------+---------+ + + + documented as of this encounter Visit Diagnoses Not on filedocumented in this encounter"
--- OUTSIDE RECORDS SUMMARY | ~2019-12-19 | XMS | Encounter Summary ---
Demographics + + + | Address | [address] | | | [place] [address] | + + + | Home Phone [...] [place], [place] | | | | | [address] | | + + + + + | Ellie Vang | ECON | Unknown | | + + + + + Care Team Providers + +------+ + | Care Inkjet Operator Name | Role | Phone | [...] | | | | | | [place], [place] | | | | | | [address] | | | | | | [phone] | | | +--------+ + + + [...] | | | | | [place], [place] | | | | | | [address] | | | | | | [phone] | | | | | | | | +--------+---------+ + + + documented as of this encounter Visit Diagnoses Not on filedocumented in this encounter"
--- OUTSIDE RECORDS SUMMARY | ~2019-12-19 | XMS | Encounter Summary ---
Demographics + + + | Address | [address] | | | [place] [address] | + + + | Home Phone [...] [place], [place] | | | | | [address] | | + + + + + | Ellie Vang | ECON | Unknown | | + + + + + Care Team Providers + +------+ + | Care Screw Machine Tool Setter Name | Role | Phone [...] | Visit | Preventive at [facility] | [address] | mellitus without | | | | [address] | [place], [place] | complication, with | | | | Mailcode: [facility] | [address] | long-term current | | | | [facility] | [phone] | use of insulin ([facility]) | | | | and Healing, | | (Primary Dx); | | | | Building [address] | | Chronic right-sided | | | | [place], [place] | | heart failure (HCC) | | | | [address] | | | | | | [phone] | | | +--------+---------+ + + + [...] of her heart failure by her Associate Professor Of Management 3) Check A1c, lipids 4) Await bariatric surgery in February 2018 5) Continue phentermine 37.5 mg daily 6) Continue wound care, non-pressure ambulation of right foot wound 7) Follow-up 4-6 months In the interim, the patient underwent bariatric surgery and was discharged [facility] on [facility]. Today, the patient reports [...] 06/23 - She is working with the office messenger helper in her office - She is taking [...] tongue once daily., Disp: , Rfl: CALCIUM CRB&WPX-G2-OVL09-GENIS ORAL, Take 2 tablets by mouth two [...] 3.19 11/28/2016 Lab Results Component Value Date [id number] 88.6 05/27/2018 Lab Results Component Value Date [...] weight of 320lbs. Plan to work with office messenger helper from bariatric surgery, identify etio logy of [...] currently being managed well by her Associate Professor Of Management with diuretics and mainte nance of her [...] Gissell Clements MD Fellow, Cardiovascular Medicine Pager [phone] signed by Gissell Clements MD at 06/04/2018 [...] [address] | | | | | | [place], [place] | | | | | | [address] | | | | | | [phone] | | | | | | | [...]
--- OUTSIDE RECORDS SUMMARY | ~2019-12-19 | XMS | Encounter Summary ---
Demographics + + + | Address | [address] | | | [place] [address] | + + + | Home Phone [...] [place], [place] | | | | | [address] | | + + + + + | Ellie Vang | ECON | Unknown | | + + + + + Care Team Providers + +------+ + | Care Tooth Inspector Name | Role | Phone | [...] + + | 03/01/ | Hospital | [facility] [address] | Ion Castanon, | | | 2018 - | Encounter | [address] | [address] | | | | | [place], [place] | [place], [place] | | | 03/03/ | | [address] | [address] | | | 2017 | | [phone] | [phone] | | | | | | | [...] - 03/03/2018 9:49 AM PDT [facility] RED SURGERY INPATIENT DISCHARGE SUMMARY Author: KAIN [...] a bariatric full liquid diets. Our [facility] dietitian was consulted and they discussed her [...] at minimum. 5. Follow with PCP for Meat Hanger within 1 - 2 weeks of discharge [...] mg by mouth two times daily. CALCIUM CRB&TWD-G6-OHT96-GENIS ORAL Take 2 tablets by mouth two [...] or Kefir, [place] Yogurt, and Chioban i [place]ese Yogurt are common brands with beneficial probiotics. [...] the counter at most [facility] [employer] stores. Nausea/Vomiting/Difficulty Swallowing Nausea/Vomiting/Difficulty swallowing: Could be [...] hours per your instructions. Some medications, like Colton, have Tylenol in it. Make sure you [...] hours by calling the surgery office at [phone]. - After hours, weekends and holidays, you may call the hospital brim pouncer machine operator at [phone] an d have the board of education secretary Red Surgery Team paged. OTHER DISCHARGE ORDERS [...] at minimum. 5. Follow with PCP for Meat Hanger within 1 - 2 weeks of discharge [...] Dept Phone Center 03/10/2018 1:30 PM [facility] at [facility] 6th Floor [phone] FO OD AND NUT 03/10/2018 3:05 PM [facility] Digestive [facility] Center at [facility] 6th Floor [phone] [facility] 04/01/2018 10:30 AM [facility] at [facility] 6th Floor [phone] FO OD AND NUT 04/01/2018 11:00 AM Ion Castanon [facility] at [facility] 6th Floor [phone] [facility] 05/27/2018 2:30 PM [facility] Digestive [facility] at [facility] 6th Floor [phone] FO OD AND NUT 05/27/2018 3:05 PM [facility] Digestive [facility] Center at [facility] 6th Floor [phone] [facility] 05/27/2018 4:30 PM [facility] at [facility] 15th Floor [phone] Comprehensiv 06/04/2018 10:35 AM Randell Franks Cardiology Preventive at [facility] [phone] Cardiology Discharging Physician: KAIN Agee Attending Physician: Ion Castanon MD [facility] Surgery Pager# [phone] 9:50 AM 03/03/2018 documented in this enco [...] | | 0 | | | | CRB&WQO-K2-CDX69-GEN | mouth two times | | | [...] date of discharge 03/03/18 PARTHA Calixto MS3 [facility] Demarcus Menon MD - [...] for care ride home (pt lives in [place]) Demarcus Alas M.D. General Surgery Resident PGY-1 Pager: [phone] Ion Ferrari MD - 10:00 AM PDTI [...] Flannery | | | | | | [place], [place] | | | | | | [address] | | | | | | [phone] | | | | | | | [...] ve | 8:31 AM | ([facility]) | | | BYPASS | Surgic [...] AMES | [address] | [place], [place] | | | [place] POINT OF CARE | [facility] | [address] | | | TESTS | | | [...] MARQUAM | [address] | [place], [place] | | | JUSTINE DAWN OF CARE | [address] | [address] | | | TESTS | | | [...] - KWAKU | [address] | [place], [place] | | | JUST[place] DAWN OF CARE | [facility] | [address] | | | TESTS | | | [...] (H) | 70 - 99 mg/dL | [facility]ES | [address] | [place], [place] | | | [place] DAWN OF CARE | [facility] | [address] | | | TESTS | | | [...] AMES | [address] | [place], [place] | | | JUSTINE DAWN OF JAKY | [address] | [address] | | | TESTS | | | [...] KWAKU | [address] | [place], [place] | | | JUSTINE DAWN OF JAKY | [facility] | [address] | | | TESTS | | | [...] (H) | 70 - 99 mg/dL | [facility] AMES | [address] | [place], [place] | | | [place] POINT OF CARE | [address] | [address] | | | TESTS | | | [...] KWAKU | [address] | [place], [place] | | | JUSTINE DAWN OF JAKY | [address] | [address] | | | TESTS | | | [...] KWAKU | [address] | [place], [place] | | | JUSTINE DAWN OF JAKY | [facility] | [address] | | | TESTS | | | [...] (H) | 70 - 99 mg/dL | [facility] AMES | [address] | [place], [place] | | | [place] POINT OF CARE | [address] | [address] | | | TESTS | | | [...] KWAKU | [address] | [place], [place] | | | JUSTINE DAWN OF CARE | [address] | [address] | | | TESTS | | | [...] KWAKU | [address] | [place], [place] | | | JUSTINE DAWN OF JAKY | [facility] | [address] | | | TESTS | | | [...] YAKOVAM | [address] | [place], [place] | | | L[place] POINT OF CARE | [address] | [address] | | | TESTS | | | [...] KWAKU | [address] | [place], [place] | | | JUSTINE DAWN OF CARE | [facility] | [address] | | | TESTS | | | [...] KWAKU | [address] | [place], [place] | | | JUSTINE DAWN OF JAKY | [facility] | [address] | | | TESTS | | | | + + + + + CAPILLARY BLOOD GLUCOSE (NO CHG), POC (03/02/2018 4:36 AM PDT) + +-------+ + + + | Component | Value | Ref Range | Performed | Pathologist | | | | | At | Signature | + +-------+ + + + | BLOOD | 97 | 70 - 99 mg/dL | [facility] MARQUAM | [address] | [place], [place] | | | JUST[facility] DAWN OF [facility] | [address] | [address] | | | TESTS | | | [...] AMES | [address] | [place], [place] | | | JUSTINE DAWN OF CARE | [facility] | [address] | | | TESTS | | | [...] MARPATAM | [address] | [place], [place] | | | JUSTINE DAWN OF CARE | [facility] | [address] | | | TESTS | | | [...] (H) | 70 - 99 mg/dL | [facility] MARQUAM | [address] | [place], [place] | | | [place] POINT OF CARE | [address] | [address] | | | TESTS | | | [...] AMES | [address] | [place], [place] | | | JUSTINE DAWN OF JAKY | [facility] | [address] | | | TESTS | | | [...] KWAKU | [address] | [place], [place] | | | JUST[place] DAWN OF JAKY | [facility] | [address] | | | TESTS | | | [...] (H) | 70 - 99 mg/dL | [facility] YAKOVAM | [address] | [place], [place] | | | [place] POINT OF CARE | [address] | [address] | | | TESTS | | | [...] KWAKU | [address] | [place], [place] | | | JUSTINE DAWN OF CARE | [facility] | [address] | | | TESTS | | | [...] KWAKU | [address] | [place], [place] | | | JUSTINE DAWN OF JAKY | [facility] | [address] | | | TESTS | | | [...] (H) | 70 - 99 mg/dL | [facility] [...] KWAKU | [address] | [place], [place] | | | [place] POINT OF CARE | [address] | [address] | | | TESTS | | | [...] KWAKU | [address] | [place], [place] | | | JUSTINE DAWN OF JAKY | [facility] | [address] | | | TESTS | | | | + + + + + EGD (ESOPHAGOGASTRODUODENOSCOPY) (03/01/2018 11:21 AM PDT) + + + | Narrative | Performed At | + + + | Ion Castanon MD 03/01/2018 12:25 PM Date of Procedure: | | | 03/01/18 Primary Surgeon: Ion Castanon MD Co Surgeon or | | | medical office assistant instructor: Eldon Gonzalez MD, Chief Resident Alexx | [...] The jejunum was divided with 60 mm Ke[place] stapler with white | | | load [...] created in each limb and a 60mm [place] stapler | | | with white load was fired to create a [id number] | | | jejunojejunostomy. The anastamosis was confirmed to be widely | | | patent and hemostatic. The common enterotomy was closed by placing | | | 2 stay sutures along the enterotomy for retraction and firing an | | | Keokuk 60mm stapler with white load across the [...] | | | was entered. The 60mm Keokuk stapler with blue load was placed | [...] blue load of the 60mm stapler. The Keokuk was then fired | | | longitudinally towards the angle of His to create the gastric pouch, | | | leaving the gastrotomy from foreign body removal, on the pouch. | | | Dissection was performed retrogastric to connect posterior and | | | anterior dissection planes and ensure adequate fundus exclusion. | | | Additional fires of the Keokuk stapler were performed with blue | | [...] with | | | 5 mm clip hot air furnace installer and repairer. A 25mm Orvil was passed transorally by [...] was closed with 60mm | | | Keokuk stapler with a white load. Medially and [...] present | | | as my medical office assistant instructor for the entire procedure, given the technically | | | challenging nature of this procedure. She assisted in all critical | | | steps of the procedure. Dr. Gonzalez was present for endoscopy at the | | | end of the procedure. Ion Castanon MD, FACS, [facility] | | | Bariatric Surgery | [...] Co Surgeon or | | | medical office assistant instructor: Eldon Gonzalez MD, Chief Resident Alexx | [...] The jejunum was divided with 60 mm Keokuk stapler with white | | | load [...] created in each limb and a 60mm Keokuk stapler | | | with white load was fired to create a jgok-ty-vunz | | | jejunojejunostomy. The anastamosis was confirmed to be widely | | | patent and hemostatic. The common enterotomy was closed by placing | | | 2 stay sutures along the enterotomy for retraction and firing an | | | Keokuk 60mm stapler with white load across the [...] | | | was entered. The 60mm Keokuk stapler with blue load was placed | [...] blue load of the 60mm stapler. The Keokuk was then fired | | | longitudinally towards the angle of His to create the gastric pouch, | | | leaving the gastrotomy from foreign body removal, on the pouch. | | | Dissection was performed retrogastric to connect posterior and | | | anterior dissection planes and ensure adequate fundus exclusion. | | | Additional fires of the Keokuk stapler were performed with blue | | [...] with | | | 5 mm clip hot air furnace installer and repairer. A 25mm Orvil was passed transorally by [...] was closed with 60mm | | | Keokuk stapler with a white load. Medially and [...] present | | | as my medical office assistant instructor for the entire procedure, given the technically | | | challenging nature of this procedure. She assisted in all critical | | | steps of the procedure. Dr. Gonzalez was present for endoscopy at the | | | end of the procedure. Ion Castanon MD, FACS, [facility] | | | Bariatric Surgery | [...] MARQU[place] | [address] | [place], [place] | | | JUSTINE DAWN OF JAKY | [address] | [address] | | | TESTS | | | [...] of 70 and over, adult ([facility]) - Primary | + + | Diabetes mellitus type 2 without retinopathy ([facility]) Type II or unspecified type | [...]
--- OUTSIDE RECORDS SUMMARY | ~2019-12-19 | XMS | Encounter Summary ---
Demographics + + + | Address | [address] | | | [place] [address] | + + + | Home Phone [...] [place], [place] | | | | | [address] | | + + + + + | Ellie Vang | ECON | Unknown | | + + + + + Care Team Providers + +------+ + | Care Rn Dialysis Name | Role | Phone | [...] | 2018 | | Center at [facility] [address] | ACNP [address] | | | | | [address] | Ave [place], [place] | | | | | Mailcode: [place] | [address] | | | | | for Health and | [phone] | | | | | [facility] | | | | | | [place], [place] | | | | | | [address] | | | | | | | [...] [place] | | | | | | [address] | | | | | | [phone] | | | | | | | | +--------+---------+ + + + documented as of this encounter Visit Diagnoses Not on filedocumented in this encounter"
--- OUTSIDE RECORDS SUMMARY | ~2019-12-19 | XMS | Encounter Summary ---
Demographics + + + | Address | [address] | | | [place] [address] | + + + | Home Phone [...] [place], [place] | | | | | [address] | | + + + + + | Ellie Vang | ECON | Unknown | | + + + + + Care Team Providers + +------+ + | Care Medical Doctor Nuclear Medicine Name | Role | Phone [...] 2019 | | Preventive at [facility] | [address] | | | | | [address] | [place], [place] | | | | | Mailcode: CH9A | [address] | | | | | [facility] | [phone] | | | | | and Healing, | | | | | | [address] | | | | | | [place], [place] | | | | | | [address] | | | | | | [phone] | | | +--------+ + + + [...] [address] | | | | | | [place], [place] | | | | | | [address] | | | | | | [phone] | | | | | | | | +--------+---------+ + + + documented as of this encounter Visit Diagnoses Not on filedocumented in this encounter"
--- OUTSIDE RECORDS SUMMARY | ~2019-12-19 | XMS | Encounter Summary ---
Demographics + + + | Address | [address] | | | [place] [address] | + + + | Home Phone [...] Organization | [facility] [...] Providers + +------+ + | Care Airplane Fueler Name | Role | Phone | + +------+ + PCP | Unavailable | + +------+ + Encounter Details +--------+ + + + + | Date | Type | Department | Care Team | Description | +--------+ + + + + | 02/17/ | Orders Only | [facility] | Provider, | Pure | | 2019 | | SYSTEM GENERIC OP | MD [address] | hyperglyceridemia; | | | | CONVERSION [address] | [address] | Hypokalemia; | | | | [address] [place], [place] | [place] [address] | Dehydration; | | | | [address] | | Hyperuricemia | | | | [phone] | | without signs of | | [...] [address] | | | | | | [place] [address] | | | | | | [phone] | | | | | | | [...]
--- OUTSIDE RECORDS SUMMARY | 2019-12-19 10:00 | XMS ---
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 ROMERO Security Captain Cannery Tender Events No recent Security Events currently on file CRITERIA MET - Group Notification - 6 ED Visits in 6 Months - [facility] - Has Care Guidelines - PDMP - [facility] - 2 Visits in 30 Days CARE PROVIDERS Eagle Nino Community Health Worker 07/03/2019-Current PHONE: [phone] JONES DAVISON Dentist: Insights Manager 05/23/2019-Current PHONE: [phone] Rob Tilley Training Designer/Transportation Dispatcher 03/27/2018-Current PHONE: [phone] CONCETTA UPTON Internal Medicine: Pulmonary Disease 08/23/2018-Current PHONE: Unknown Guidelines Source: [facility] Guidelines Date: 09/16/2019 Care Coordination: Receives mental health services with [facility].\T\nbsp; Please contact [facility] regarding mental health concerns. [place] Office: , [place] Office: [phone].\T\nbs; [facility] Crisis: [phone]. Care History Medical/Surgical 12/13/2019 [facility] - PATIENT HAD AN APT WITH DR DAVISON PCP ON 12/09/19 FOR FOLLOW UP TO ED VISIT. - NEXT APT SCHEDULED FOR PATIENT IS IN FEBRUARY 2020. 09/14/2019 [facility] - PATIENT HAS AN APT WITH DR WEBBER 09/14/19 FOR FOLLOW UP TO RECENT POSTOPERATIVE COMPLICATION. - HERNIA SURGERY WAS DONE ON 08/19/[address] TIWARI AT [facility]. 06/27/2019 [facility] - PATIENT SELF DISCHARGED FROM [facility]-PCP IS NOW DR DAVISON AT [facility]. [place] VISIT COUNT (12 MO.) 2 [facility] 12 [facility]. TOTAL 14 NOTE: Visits indicate total known visits. ED/UCC VISIT TRACKING (12 MO.) 12/19/2019 09:57 [facility] [place] TYPE: Emergency COMPLAINT: - EYE PAIN NON INJURY 12/02/2019 12:02 [facility] [place] TYPE: Emergency COMPLAINT: - STOMACH PAIN,BLOODY STOOL DIAGNOSES: - Anxiety disorder, unspecified - Allergy status to other drugs, medicaments and biological sub - Allergy status to other antibiotic agents status - Other half-way (current) drug therapy - Hypokalemia - Constipation, unspecified - Unspecified abdominal pain - Migraine, unspecified, not intractable, without status migrai - senior care (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 - Allergy status to penicillin 11/13/2019 17:[address] [facility] [place] [facility] [place] TYPE: Emergency COMPLAINT: - MULTIPLE COMPLAINTS DIAGNOSES: - Viral infection, unspecified - Cough - Other half-way (current) drug therapy - Anxiety disorder, unspecified - Allergy status to other antibiotic agents status - Allergy status to penicillin - Migraine, unspecified, not intractable, without status migrai 09/12/2019 17:[address] [facility] [place] TYPE: Emergency COMPLAINT: - POST OP PAIN DIAGNOSES: - Allergy status to analgesic agent status - Unspecified abdominal pain - Allergy status to penicillin - Other supervisor intermediates (current) drug therapy - Anxiety disorder, unspecified - Obesity, unspecified - Other postprocedural complications of skin and subcutaneous t - Allergy status to other drugs, medicaments and biological sub 09/08/2019 18:[address] [facility] [place] TYPE: Emergency COMPLAINT: - DIFFICULTY BREATHING DIAGNOSES: - Headache - Other supervisor intermediates (current) drug therapy - Personal history of nicotine dependence - Shortness of breath 09/02/2019 21:22 [facility] [place] TYPE: Emergency COMPLAINT: - ABDOMINAL PAIN 08/18/2019 13:47 [facility] TYPE: Emergency DIAGNOSES: 43880. [facility] [address]. Morbid (severe) obesity due to excess calories 09772. Ventral hernia without obstruction or gangrene 55013. Unspecified abdominal hernia with obstruction, without gangre 06/25/2019 18:23 [facility] [place] TYPE: Emergency COMPLAINT: - ABDOMINAL PAINY DIAGNOSES: - terminal computer operator (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 - Anxiety disorder, unspecified - Cellulitis of abdominal wall - Acute embolism and thrombosis of deep veins of right upper ex - Nicotine dependence, unspecified, uncomplicated - Migraine, unspecified, not intractable, without status migrai - Unspecified abdominal pain - Allergy status to other drugs, medicaments and biological sub - Other half-way (current) drug therapy - Allergy status to penicillin - Obesity, unspecified 06/19/2019 06:34 [facility] [place] TYPE: Emergency COMPLAINT: - ABDOMINAL PAIN/VOMITING DIAGNOSES: - senior care (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 - Personal history [...] drugs, medicaments and biological sub - Other half-way (current) drug therapy 06/01/2019 13:10 [facility] [place] TYPE: Emergency COMPLAINT: - HEADACHE/VISION ISSUES DIAGNOSES: - Allergy status to penicillin - Anxiety disorder, unspecified - Obesity, unspecified - Migraine, unspecified, not intractable, without status migrai - Other half-way (current) drug therapy - Allergy status to other drugs, medicaments and biological sub - terminal computer operator (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 - Headache - terminal computer operator (current) use of aspirin 05/23/2019 17:08 [facility] [place] TYPE: Emergency COMPLAINT: - BLOOD CLOT IN ARM DIAGNOSES: - Anxiety disorder, unspecified - Acute embolism and thrombosis of deep veins of right upper ex - Allergy status to penicillin - Other half-way (current) drug therapy - Pain in right arm - terminal computer operator (current) use of aspirin - Allergy status to other drugs, medicaments and biological sub 05/20/2019 10:19 [facility] [place] TYPE: Emergency COMPLAINT: - ABD PAIN, VOMITING DIAGNOSES: - Generalized abdominal pain - senior care (current) use of aspirin - Allergy status to other drugs, medicaments and biological sub - Unspecified abdominal pain - Personal history of transient ischemic attack (TIA), and cere - Anxiety disorder, unspecified - Other half-way (current) drug therapy - Other chronic pain - Allergy status to penicillin 05/13/2019 17:18 [facility] TYPE: Emergency DIAGNOSES: 54427. A303 18324. Bariatric surgery status 78343. Ventral hernia without obstruction or gangrene 20283. Nausea with vomiting, unspecified 68633. Unspecified abdominal pain 18843. Nonspecific mesenteric lymphadenitis 05/10/2019 13:06 [facility] [place] TYPE: Emergency COMPLAINT: - ABD PAIN DIAGNOSES: - Nausea with vomiting, unspecified - Allergy status to other drugs, medicaments and biological sub - Personal history of transient ischemic attack (TIA), and cere - Solitary pulmonary nodule - Other supervisor intermediates (current) drug therapy - Anxiety disorder, unspecified - Allergy status to penicillin - Ventral hernia without obstruction or gangrene - terminal computer operator (current) use of aspirin - Unspecified abdominal pain - Diarrhea, unspecified INPATIENT VISIT TRACKING (12 MO.) 09/03/2019 02:24 [facility] [place] TYPE: Medical Surgical COMPLAINT: - POST-OP HEMATOMA DIAGNOSES: - Body mass index (BMI) 50-59.9 , adult - Personal history of pulmonary embolism - senior care (current) use of opiate analgesic - Other chronic pain - Allergy status to other drugs, medicaments and biological sub - Anxiety disorder, unspecified - Allergy status to other drugs, medicaments and biological sub - terminal computer operator (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 - Bipolar disorder, unspecified - Personal history of other venous thrombosis and embolism - Anxiety disorder, unspecified - Other chronic pain - Other supervisor intermediates (current) drug therapy - Postprocedural hematoma of a digestive system organ or struct - Other half-way (current) drug therapy - Personal history of other venous thrombosis and embolism - Bariatric surgery status - Essential (primary) hypertension - Personal history of transient ischemic attack (TIA), and cere - Obstructive sleep apnea (adult) (pediatric) - Personal history of pulmonary embolism - Migraine, unspecified, not intractable, without status migrai - Bipolar disorder, unspecified - terminal computer operator (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 - Acute [...] obesity due to excess calories - terminal computer operator (current) use of opiate analgesic - Bariatric surgery status - Hypokalemia - Hypokalemia 08/18/2019 13:47 [facility] TYPE: Surgery DIAGNOSES: . Unspecified abdominal hernia with obstruction, without gangre . Morbid (severe) obesity due to excess calories . Ventral hernia without obstruction or gangrene [email or web address]
[2019-12-19] MEDS ORDERED: CLEOCIN HCL300 MG PO (12:58)
[2019-12-19] MEDS ORDERED: NORCO 5-325 TA1 EACH PO (12:58)
[2019-12-19] MEDS ORDERED: VALTREX1000 MG PO (12:58)
== END 2019-12-19 13:10 | disposition home or self-care (01) ==
LOC: ED 09:56
DX: B02.30 Zoster ocular disease, unspecified (principal); B02.9 Zoster without complications; G43.909 Migraine, unspecified, not intractable, without status migrainosus; F41.9 Anxiety disorder, unspecified; Z88.0 Allergy status to penicillin; Z88.8 Allergy status to other drugs, medicaments and biological substances; Z79.899 Other long term (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
CPT/HCPCS: 70450; 70487; 80053; 83735; 84703; 85025; 85610; 99284-25; J0780; J2270; J7030; Q9967

== ENCOUNTER 2020-02-27 15:26 | Emergency (ER) | payer OTHER ==
[~2020-02-27] VITALS: Ht 147.3 cm; Wt 120.7 kg
--- OUTSIDE RECORDS SUMMARY | ~2020-02-27 | XMS | Encounter Summary ---
Demographics + + + | Address | [address] | | | [place] [address] | + + + | Home Phone | | + + + | Preferred Language | Unknown | + + + | Marital Status | Single | + + + | Mu-Ism Affiliation | NON | + + + | Race | White | + + + | Ethnic Group | Not or | + + + Author + + + | Author | [facility] | + + + | Organization | [facility] | + + + | Address | Unknown | + + + | Phone | Unavailable | + + + Support + + + + + | Name | Relationship | Address | Phone | + + + + + | Katalina Padilla | ECON | [address] | | | | | [place], [place] | | | | | [address] | | + + + + + | Ellie Vang | ECON | Unknown | | + + + + + Care Team Providers + +------+ + | Care Salvage Worker Name | Role | Phone | + +------+ + | Fadi Goodrich DO | PCP | | + +------+ + Encounter Details +--------+ + + + + | Date | Type | Department | Care Team | Description | +--------+ + + + + | 03/16/ | Telephone | Digestive Health | Ronna Clarke, | | | 2018 | | Center at [facility] [address] | ACNP [address] | | | | | [address] | [address] [place], [place] | | | | | for Health and | [address] | | | | | [facility], [facility] [address] | [phone] | | | | | [place], [place] | | | | | | [address] | | | | | | | [...] + + documented as of this encounter Functional Status + + + + | Functional Status | Response | Date of Assessment | + + + + | Because of a physical, mental, or emotional | No | 03/02/2018 | | condition, do you have serious difficulty | | | | doing errands alone such as visiting the | | | | doctor? | | | + + + + + + + + | Cognitive Status | Response | Date of Assessment | + + + + | Because of a physical, mental, or emotional | No | 03/02/2018 | | condition, do you have serious difficulty | | | | concentrating, remembering, or making | | | | decisions? (5 years old or older) | | | + + + + documented as of this encounter Plan of Treatment +--------+ + + + + | Date | Type | Specialty | Care Team | Description | +--------+ + + + + | 03/22/ | Office | Cardiology | Randell Franks, | | | 2019 | Visit | | [address] | | | | | | [place], [place] | | | | | | [address] | | | | | | [phone] | | | | | | | | +--------+ + + + + | 04/04/ | Telephone-S | Surgery | Orquidea Cristobal, | | | 2019 | [email or web address] | | TELEVISION SPECIALIST [address] | | | | | | [place], [place] | | | | | | [address] | | | | | | [phone] | | | | | | | | +--------+ + + + + documented as of this encounter Visit Diagnoses Not on filedocumented in this encounter"
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
--- OUTSIDE RECORDS SUMMARY | ~2020-02-27 | XMS | Encounter Summary ---
Demographics + + + | Address | [address] | | | [place] [address] | + + + | Home Phone [...] + + + | Author | [facility] | + + + | Organization | [facility] | + + + | Address | Unknown | + + + | Phone | Unavailable | + + + Support + + + + + | Name | Relationship | Address | Phone | + + + + + | Katalina Padilla | ECON | [address] | | | | | [place], [place] | | | | | [address] | | + + + + + | Ellie Vang | ECON | Unknown | | + + + + + Care Team Providers + +------+ + | Care School Administrator Name | Role | Phone | + +------+ + | Kenyatta Hylton MD | PCP | | + +------+ + Reason for Visit + + + | Reason | Comments | + + + | Abdominal pain | | + + + AUTH/CERT +--------+--------+ + + + + | [...] Description | +--------+---------+ + + + | 08/19/ | Surgery | [id number] | [place], | OPEN VENTRAL HERNIA | | 2019 | | [address] | MD [address] | REPAIR | | | | [facility] | [address] | | | | | Hospital Admitting | [place], [place] | | | | | Desk Located on the | [address] | | | | | 9th floor | [phone] | | | | | [place], [place] | | | | | | [address] | | | +--------+---------+ + + + Social History + + + +--------+------+ | Tobacco Use | Types | Packs/Day | Years | Date | | | | | Used | | + + + +--------+------+ | Former Smoker | Cigarettes | | | | + + + [...] + + + | Blood Pressure | 135/66 | 08/23/2019 8:11 AM | | | | | PST | | + + + + + | Pulse | 87 | 08/23/2019 8:11 AM | | | | | PST | | + + + + + | Temperature | 36.4 C (97.5 F) | 08/23/2019 8:11 AM | | | | | PST | | + + + + + | Respiratory Rate | 16 | 08/23/2019 8:11 AM | | | | | PST | | + + + + + | Oxygen Saturation | 100% | 08/23/2019 8:11 AM | | | | | PST | | + + + + + | Inhaled Oxygen | - | - | | | Concentration | | | | + + + + + | Weight | 127 kg (279 lb 15.8 | 08/20/2019 9:00 PM | | | | oz) | PST | | + + + + + | Height | 147.3 cm (4' 10") | 08/18/2019 1:57 PM | | | | | PST | | + + + + + | Body Mass Index | 58.52 | 08/18/2019 1:57 PM | | | | | PST | | + + + + + documented in this encounter Functional Status + + + + | Functional Status | Response | Date of Assessment | + + + + | Because of a physical, mental, or emotional | No | 08/19/2019 | | condition, do you have serious difficulty | | | | doing errands alone such as visiting the | | | | doctor? | | | + + + + + + + + | Cognitive Status | Response | Date of Assessment | + + + + | Because of a physical, mental, or emotional | No | 08/19/2019 | | condition, do you have serious difficulty | | | | concentrating, remembering, or making | | | | decisions? (5 years old or older) | | | + + + + documented as of this encounter Discharge Summaries Jones Tiwari MD - 08/23/2019 6:34 AM PST INPATIENT PHYSICIAN DISCHARGE SUMMARY Author: Kelin Hairston MD Attending Physician: Jones Tiwari MD PCP: Kenyatta Hylton MD Admission Date: 08/18/2019 Discharge Date: 23 Aug 2019 Diagnosis: Primary Diagnosis: Incarcerated incisional ventral hernia Secondary Diagnosis: 1. History of DVT/TIA/stroke 2. Hypertension 3. Diabetes Procedures: Primary ventral incisional hernia repair Hospital Course: Dylan Romero is a 44 year old female with hypertension, diabetes, congestive heart fail ure, hypothyroidism, obesity who underwent laparoscopic antecolic nilesh-en-y gastric bypass i n 2018, obstructive sleep apnea, bipolar disorder, depression, anxiety, history of stroke/TI A, DVT, and multiple hernia repairs with a knownincarcerated ventral hernia containing bow el who underwent primary ventral incisional hernia repair on 08/19/19. Of note the patient ar rived on 08/18/19 through the emergency department for worsening abdominal pain and vomiting. She tolerated the procedure well and there were no intraoperative complications identified. Postoperatively she recovered on the gallo. She was transitioned off her ATTENDANT SALES on POD1. She di d have difficulty with pain control after however it was better controlled on oral hydromorp alejo. She was tolerating a regular diet without nausea or vomiting, able to void after her F oley removal, and was passing flatus. She was started on therapeutic Lovenox on POD3 and tra nsitioned to warfarin the evening of POD3. Physical therapy evaluated the patient and recomm ended home with assist as needed. She was ready for discharge on POD 4 and was discharged in good condition. She will follow up at the [facility] with Dr. Tiwari in 2- 3 weeks. She will also follow up in her anticoagulation clinic in the next several days for warfarin management. Medications: Medication List CONTINUE taking these medications ALPRAZolam 1 mg Tab Commonly known as: XANAX Take 1 mg by mouth three times daily as needed. ascorbic acid (vitamin C) 500 mg Tab Commonly known as: VITAMIN C Take 1 tablet by mouth once daily. atenoloL 50 mg Tab Commonly known as: TENORMIN Take 50 mg by mouth once daily at bedtime. CALCIUM [id number]-R2-[id number]-GENIS ORAL Take 2 tablets by mouth two times daily. CHLORPHENIRAMINE-PHENYLEPHRINE ORAL Take 1 tablet by mouth every four hours as needed. chlorproMAZINE 25 mg Tab Commonly known as: THORAZINE Take 50 mg by mouth once daily at bedtime. cyanocobalamin 1,000 mcg Tab Commonly known as: VITAMIN B-12 Take 1,000 mcg by mouth once daily. enoxaparin 120 mg/0.8 mL Syrg Commonly known as: LOVENOX INJECT 1 SYRINGE DIRECTED EVERY 12 HOURS ergocalciferol 50,000 unit Cap Commonly known as: VITAMIN D2 Take 1 capsule by mouth every seven days. Ferrous Gluconate 324 mg total salt (36 mg elemental iron) Tab Take 1 tablet by mouth once daily. GOLD FARRIS MEDICATED TOP Apply to infected area two times daily. INTRAUTERINE DEVICE (IUD) UTRN by intrauterine route. LATUDA 20 mg Tab Generic drug: lurasidone Take 40 mg by mouth once daily at bedtime. loperamide 2 mg Cap Commonly known as: IMODIUM Take 2 mg by mouth four times daily as needed for diarrhea. magnesium oxide 400 mg Tab Commonly known as: MAG-OX Take 400 mg by mouth two times daily. MAXALT 5 mg Tab Generic drug: rizatriptan Take 5 mg by mouth as needed. May repeat in 2 hours as needed (Max: 30 mg per 24 hour perio d). metoclopramide HCl 10 mg Tab Commonly known as: REGLAN Take 10 mg by mouth every six hours as needed for nausea/vomiting. multivitamin Tab Commonly known as: THERA VITAMIN Take 1 tablet by mouth once daily. PARoxetine 40 mg Tab Commonly known as: PAXIL Take 40 mg by mouth once daily at bedtime. phentermine 37.5 mg Tab Take 1 tablet by mouth once daily in the morning. Administer before breakfast. potassium chloride 20 mEq Pack Commonly known as: KLOR-CON Take 40 mEq by mouth two times daily. pramipexole 0.125 mg Tab Commonly known as: MIRAPEX Take 0.25 mg by mouth once daily at bedtime. spironolactone 50 mg Tab Commonly known as: ALDACTONE Take 50 mg by mouth once daily. STOOL SOFTENER 100 mg Cap Generic drug: docusate sodium Take 200 mg by mouth two times daily. topiramate 50 mg Tab Commonly known as: TOPAMAX Take 1 tablet by mouth two times daily. May increase by 1 tab twice daily every 2 weeks, as tolerated. Max dose is 2 tabs twice daily. torsemide 100 mg Tab Commonly known as: DEMADEX Take 100 mg by mouth two times daily. Resume half dose for first week post opertative warfarin 5 mg Tab Commonly known as: COUMADIN Take 10 mg by mouth once daily. ASK your doctor about these medications PATIENT SERVICE COORDINATOR THYROID 30 mg Tab tab Generic drug: thyroid Take 30 mg by mouth once daily at bedtime. Ask about: Which instructions should I use? Activity: Resume your normal daily pre-operative activities. It is OK, and even encouraged, to do so me light activity such as walking following surgery. No lifting > 10 pounds for about 4 wee ks and until cleared by your surgeon. If you lift something or do an activity and your surgi olga lidia wounds and areas of repair hurt, then please stop performing that activity (e.g. Bending over to lift a child, box, etc). If you normally perform strenuous activity including acti vities such weight lifting, chopping wood, or do any significant lifting at work, you should stop these activities should until cleared by your doctor at time of follow up. You will return to your preoperative activity level, but try to not exhaust yourself while healing. If taking narcotic pain medicine (e.g. Oxycodone, Percocet, Hydrocodone, Vicodin) you canno t drive or operate machinery, as these medicines may make you drowsy and lose concentration. Your reaction time and judgement will be impaired, just as though you were intoxicated. Diet: Resume your normal pre-operative diet, however it is advisable to eat a light diet for a da y or two following surgery. It is normal to have a decreased appetite for several days aft er surgery. Many patients find that eating multiple small meals after surgery is easier than trying to eat 3 large meals. Additional Instructions: WOUND CARE: You have one of two types of coverings over your surgical incisions: either a special surgi olga lidia glue or steri-strips with a covered dressing. If you received Dermabond surgical glue o scooter your incisions it will start to fall off naturally and eventually flake off; there are n o outer dressings to remove. If you received steri-strips, there will be an outer dressing with gauze & tape or clear Tegaderm. The outer dressing should be removed in 48 hours, but leave the steri-strips on. The steri-strips will remain on until they start to curl off on the ends. After they start to curl (~10-14 days), it is ok to gently tease them off your sk in. Shower: You may shower regularly and allow soapy water to wash over your incision(s). Pat t hem dry; do not scrub. Baths: Do not submerge your incisions (tub/pool/bath) for at least 7 days. Rubbing/Irritation: If clothes rub your incision, we recommend covering with loose gauze or a band-aid after your outer dressing has been removed. Sunscreen: Protection of a recent incision from the sun is preferable for the first 6 month s, otherwise the scar tissue may darken abnormally. Using sunblock over incisions reduces th is cosmetic concern. Lotions/Creams: Do not use other lotions, creams or ointments on incision unless directed t o do so by your physician. Bruising: You may experience some bruising around the incision sites, hernia repair sites, or even down into your groin areas/scrotum (if having inguinal hernia repair). Mild bruisin g can be normal, but be sure to notify Dr. Tiwari's office if there is any concern for t he amount of bruising, or there is a hard bulge associated with the bruising. MEDICATIONS: Resume all your normal pre-operative medications. If you were on high-dose aspirin (324 mg ), it is ok to restart that in 1 week. If you were on baby-dose aspirin (81 mg), it is ok t o continue that medication. Pain Medications: Acetaminophen (Tylenol) and ibuprofen (Advil, Motrin) can be very effecti ve for post-operative pain. As long as you don't have allergies or sensitivities to these me dications you may take 650mg of acetaminophen and 400mg ibuprofen every 6 hours. Stagger the m every 3 hours for better pain control. Take ibuprofen with food and limit its use to one week, as it can irritate your stomach. If you still experience significant post-operative p ain, then you may take the prescribed narcotic-opioid (e.g. oxycodone, hydrocodone, Vicodin, Elgin, Percocet, Dilaudid) as needed. However, Vicodin/Elgin and Percocet contain acetam inophen in the pill itself so be sure to take EITHER Vicodin/Percocet OR Tylenol (Acetaminop hen), not both at the same time. Opioid pain medications may cause constipation, so be sure to take a stool softener if you take an opioid pain medication. Swelling/Pain: In addition to pain medications, you should apply an ice pack or bag of froz en peas in a thin cloth for the next [address] over the bandaged incision and the area of surgery (e.g. groin regions) for about 20-30 minutes at a time. This will help to n umb the area and reduce swelling, however it does not hasten healing. CONSTIPATION: Narcotic-opioid pain medications (e.g. oxycodone, hydrocodone, Vicodin, Elgin, Percocet, Di laudid) can be constipating, therefore you should take a stool softener on the same day as s tarting your narcotic pain medicine. Options include: Milk of Magnesia: 2 Tablespoons Twice daily Colace (=Docusate): 1 pill Twice daily Miralax: 1 Tablespoon (17 grams) daily (check bottle for mixing instructions) While these are some recommendations, any ewjp-raw-[id number] stool softener should work, and generics are fine to use. Increase your fluids, especially your intake of water Increase your activity. Walk frequently. ANTICOAGULATION: We recommend you make an appointment to be seen in your local anticoagulation clinic on Jasmyne08/25/19 to recheck your INR and for ongoing management of your warfarin. Vitals on discharge: Ht 1.473 m (4' 10"), Wt 127 kg (279 lb 15.8 oz), BP 114/59, Pulse 87, Temperature 36.4 C (97.5 F), Temperature source Oral, RR 16, SpO2 99%, BMI 58.52 kg/(m^2 ). Facility age limit for growth percentiles is 18 years. General: Adult female, comfortable appearing, NAD Pulm: Unlabored respirations on RA Abdomen: Obese, soft, non-distended, incision c/d/i Outstanding labs/studies: None Discharging Physician: Kelin Hairston MD Attending Physician: Jones Tiwari MD I performed a history and physical examination of the patient and discussed her management with the resident. I reviewed the resident s note and agree with the documented findings and plan of care. JONES TIWARI MD [facility] [address] [place] [address] documented in this encounter Discharge Instructions Discharge Instr - AVS First Page Kelin Hairston MD - 08/23/2019 6:33 AM PST When to Call the Doctor - If your incision becomes red, swollen, or has any bloody or pus-like drainage. - If you have a fever of 101.5 F or greater or if you have chills - If you have increased pain, unrelieved by your pain medications - If you have persistent nausea, vomiting, diarrhea, or no bowel movement for more than 2 d ays after discharge from the hospital - If you develop any unusual signs or symptoms, including chest pain, shortness of breath, pulmonary embolism, leg swelling, pain or redness that is abnormal for you, and other sympto ms of concern - If you have any questions or concerns. How to Call the Doctor You may contact your doctor Thursday through Thursday during the day time hours by calling the surgery office at [phone]. After hours, weekends and holidays, you may call the hospital steam conditioning operator at [phone] and have the cable installation manager [place] Team for general surgery paged. Discharge Instr - Activity Kelin Hairston MD - 08/23/2019 6:32 AM PSTResume your ignacio l daily pre-operative activities. It is OK, and even encouraged, to do some light activity such as walking following surgery. No lifting > 10 pounds for about 4 weeks and until clear ed by your surgeon. If you lift something or do an activity and your surgical wounds and are as of repair hurt, then please stop performing that activity (e.g. Bending over to lift a ch ild, box, etc). If you normally perform strenuous activity including activities such weight lifting, chopping wood, or do any significant lifting at work, you should stop these activi ties should until cleared by your doctor at time of follow up. You will return to your preoperative activity level, but try to not exhaust yourself while healing. If taking narcotic pain medicine (e.g. Oxycodone, Percocet, Hydrocodone, Vicodin) you canno t drive or operate machinery, as these medicines may make you drowsy and lose concentration. Your reaction time and judgement will be impaired, just as though you were intoxicated. Harper ctronically signed by Kelin Hairston MD at 08/23/2019 6:32 AM PST Discharge Instr - Diet Kelin Hairston MD - 08/23/2019 6:31 AM PSTResume your normal pr e-operative diet, however it is advisable to eat a light diet for a day or two following emerson jerrica. It is normal to have a decreased appetite for several days after surgery. Many patien ts find that eating multiple small meals after surgery is easier than trying to eat 3 large meals. Discharge Instr - Diagnoses Gadiel Albrecht MD - 08/22/2019 2:35 PM PSTPrimary Diagno sis: Incarcerated incisional ventral hernia Secondary Diagnosis: History of DVT/TIA/stroke Hypertension Diabetes Discharge Instr - Procedures Gadiel Albrecht MD - 08/22/2019 2:35 PM PSTPrimary ventr al incisional hernia repair. 2 :35 PM PST Discharge Instr - Hospital Course Gadiel Albrecht MD - 08/22/2019 2:37 PM PSTMistirma Tirado is a 44 year old female with hypertension, diabetes, congestive heart failure, hypo thyroidism, obesity who underwent laparoscopic antecolic nilesh-en-y gastric bypass in 2018, o bstructive sleep apnea, bipolar disorder, depression, anxiety, history of stroke/TIA, DVT, a nd multiple hernia repairs with a known incarcerated ventral hernia containing bowel who und erwent primary ventral incisional hernia repair on 08/19/19. Of note the patient arrived on through the emergency department for worsening abdominal pain and vomiting. She tj ated the procedure well and there were no intraoperative complications identified. Postopera tively she recovered on the gallo. She was transitioned off her ATTENDANT SALES on POD1. She did have dif ficulty with pain control after however it was better controlled on oral hydromorphone. She was tolerating a regular diet without nausea or vomiting, able to void after her Ruiz remov al, and was passing flatus. She was started on therapeutic Lovenox on POD3 and transitioned to warfarin the evening of POD3. Physical therapy evaluated the patient and recommended home with assist as needed. She was ready for discharge on POD and was discharged in good con dition. She will follow up at the [facility] with Dr. Tiwari in weeks. She will also follow up in her anticoagulation clinic in the new several days for warfarin m anagement. Discharge Instr - Electronic Signature Kelin Hairston MD - 08/23/2019 6:34 AM PSTAfter Visit Summary Signature Electronically signed by: Kelin Hairston MD, 08/23/2019 at 6:33 AM Additional Instructions Kelin Hairston MD - 08/22/2019 3:21 PM PST WOUND CARE: You have one of two types of coverings over your surgical incisions: either a special surgi olga lidia glue or steri-strips with a covered dressing. If you received Dermabond surgical glue o scooter your incisions it will start to fall off naturally and eventually flake off; there are n o outer dressings to remove. If you received steri-strips, there will be an outer dressing with gauze & tape or clear Tegaderm. The outer dressing should be removed in 48 hours, but leave the steri-strips on. The steri-strips will remain on until they start to curl off on the ends. After they start to curl (~10-14 days), it is ok to gently tease them off your sk in. Shower: You may shower regularly and allow soapy water to wash over your incision(s). Pat t hem dry; do not scrub. Baths: Do not submerge your incisions (tub/pool/bath) for at least 7 days. Rubbing/Irritation: If clothes rub your incision, we recommend covering with loose gauze or a band-aid after your outer dressing has been removed. Sunscreen: Protection of a recent incision from the sun is preferable for the first 6 month s, otherwise the scar tissue may darken abnormally. Using sunblock over incisions reduces th is cosmetic concern. Lotions/Creams: Do not use other lotions, creams or ointments on incision unless directed t o do so by your physician. Bruising: You may experience some bruising around the incision sites, hernia repair sites, or even down into your groin areas/scrotum (if having inguinal hernia repair). Mild bruisin g can be normal, but be sure to notify Dr. Tiwari's office if there is any concern for t he amount of bruising, or there is a hard bulge associated with the bruising. MEDICATIONS: Resume all your normal pre-operative medications. If you were on high-dose aspirin (324 mg ), it is ok to restart that in 1 week. If you were on baby-dose aspirin (81 mg), it is ok t o continue that medication. Pain Medications: Acetaminophen (Tylenol) and ibuprofen (Advil, Motrin) can be very effecti ve for post-operative pain. As long as you don't have allergies or sensitivities to these me dications you may take 650mg of acetaminophen and 400mg ibuprofen every 6 hours. Stagger the m every 3 hours for better pain control. Take ibuprofen with food and limit its use to one week, as it can irritate your stomach. If you still experience significant post-operative p ain, then you may take the prescribed narcotic-opioid (e.g. oxycodone, hydrocodone, Vicodin, Elgin, Percocet, Dilaudid) as needed. However, Vicodin/Elgin and Percocet contain acetam inophen in the pill itself so be sure to take EITHER Vicodin/Percocet OR Tylenol (Acetaminop hen), not both at the same time. Opioid pain medications may cause constipation, so be sure to take a stool softener if you take an opioid pain medication. Swelling/Pain: In addition to pain medications, you should apply an ice pack or bag of froz en peas in a thin cloth for the next [address] over the bandaged incision and the area of surgery (e.g. groin regions) for about 20-30 minutes at a time. This will help to n umb the area and reduce swelling, however it does not hasten healing. CONSTIPATION: Narcotic-opioid pain medications (e.g. oxycodone, hydrocodone, Vicodin, Elgin, Percocet, Di laudid) can be constipating, therefore you should take a stool softener on the same day as s tarting your narcotic pain medicine. Options include: Milk of Magnesia: 2 Tablespoons Twice daily Colace (=Docusate): 1 pill Twice daily Miralax: 1 Tablespoon (17 grams) daily (check bottle for mixing instructions) While these are some recommendations, any tqfd-zhn-imtfeiz stool softener should work, and generics are fine to use. Increase your fluids, especially your intake of water Increase your activity. Walk frequently. ANTICOAGULATION: We recommend you make an appointment to be seen in your local anticoagulation clinic on Thu08/25/19 to recheck your INR and for ongoing management of your warfarin. FOLLOW-UP: Please call Dr. Tiwari's office ([phone]) to schedule a follow-up appointment for 2-3 weeks after discharge. documented in this encounter Medications at Time of Discharge + + + +---------+ + + | Medication | Sig | Dispensed | Refills | Start | End Date | | | | | | Date | | + + + +---------+ + + | acetaminophen 500 | Take 2 tablets by | | 0 | 08/23/19 | | | mg oral tablet | mouth every six | | | 20 | | | | hours. | | | | | + + + +---------+ + + | ALPRAZolam 1 mg | Take 1 mg by mouth | | 0 | | | | oral tablet | three times daily as | | | | | | | needed. | | | | | + + [...] | | 0 | | | | [id number] | mouth two times | | | | | | IS ORAL | daily. | | | | | + + + +---------+ + + | chlorproMAZINE 25 | Take 50 mg by mouth | | 0 | | | | mg oral tablet | once daily at | | | | | | | bedtime. | | | | | + + + +---------+ + + | cyanocobalamin | Take 1,000 mcg by | | 0 | | | | 1,000 mcg oral | mouth once daily. | | | | | | tablet | | | | | | + + + +---------+ + + | docusate sodium | Take 200 mg by mouth | | 0 | | | | (STOOL SOFTENER) 100 | two times daily. | | | | | | mg oral capsule | | | | | | + [...] + + + +---------+ + + | INTRAUTERINE | by intrauterine | | 0 | | | | DEVICE (IUD) UTRN | route. | | | | | + + + +---------+ + + | lidocaine 5 % | Apply 1 patch to | 8 patch | 0 | 08/23/19 | | | topical adhesive | skin every | | | 20 | | | patch,medicated | twenty-four hours. | | | | | | | Apply patch to most | | | | | | | painful area; Patch | | | | | | | may remain in place | | | | | | | for up to 12 hours | | | | | | | in any 24-hour | | | | | | | period. | | | | | + + + +---------+ + + | loperamide 2 mg | Take 2 mg by mouth | | 0 | | | | oral capsule | four times daily as | | | | | | | needed for diarrhea. | | | | | + + + +---------+ + + | lurasidone | Take 40 mg by mouth | | 0 | | | | (LATUDA) 20 mg oral | once daily at | | | | | | tablet | bedtime. | | | | | + + + +---------+ + + | magnesium oxide | Take 400 mg by mouth | | 0 | | | | 400 mg oral tablet | two times daily. | | | | | + + + +---------+ + + | menthol/zinc oxide | Apply to infected | | 0 | | | | (GOLD FARRIS | area two times | | | | | | MEDICATED TOP) | daily. | | | | | + + + +---------+ + + | metoclopramide HCl | Take 10 mg by mouth | | 0 | | | | 10 mg oral tablet | every six hours as | | | | | | | needed for | | | | | | | nausea/vomiting. | | | | | + + + +---------+ + + | multivitamin oral | Take 1 tablet by | | 0 | | | | tablet | mouth once daily. | | | | | + + + +---------+ + + | PARoxetine 40 mg | Take 40 mg by mouth | | 0 | | | | oral tablet | once daily at | | | | | | | bedtime. | | | | | + + + +---------+ + + | polyethylene | Mix 1-2 packets and | | 0 | 08/23/19 | | | glycol 17 gram oral | take orally once | | | 20 | | | powder in packet | daily as needed. | | | | | + + + +---------+ + + | potassium chloride | Take 40 mEq by mouth | | 0 | | | | 20 mEq oral packet | two times daily. | | | | | + + + +---------+ + + | pramipexole 0.125 | Take 0.25 mg by | | 0 | | | | mg oral tablet | mouth once daily at | | | | | | | bedtime. | | | | | + + + +---------+ + + | rizatriptan | Take 5 mg by mouth | | 0 | | | | (MAXALT) 5 mg oral | as needed. May | | | | | | tablet | repeat in 2 hours as | | | | | | | needed (Max: 30 mg | | | | | | | per 24 hour period). | | | | | + + + +---------+ + + | spironolactone 50 | Take 50 mg by mouth | | 0 | | | | mg oral tablet | once daily. | | | | | + + + +---------+ + + | thyroid (PATIENT SERVICE COORDINATOR | Take 30 mg by mouth | | 0 | | | | THYROID) 30 mg oral | once daily at | | | | | | tablet tab | bedtime. | | | | | + + + +---------+ + + | warfarin 5 mg oral | Take 10 mg by mouth | | 0 | 05/24/20 | | | tablet | once daily. | | | 19 | | + + + +---------+ + + | enoxaparin 120 | Inject 0.8 mL under | 4.8 mL | 0 | 08/23/19 | | | mg/0.8 mL | the skin (SUBC) | | | 20 | 0 | | subcutaneous | every twelve hours | | | | | | syringeIndications: | for 6 doses. | | | | | | anticoagulation | Indications: | | | | | | treatment | anticoagulation | | | | | | | treatment | | | | | + + + +---------+ + + documented as of this encounter Progress Notes Gadiel Albrecht MD - 08/22/2019 9:12 AM PST DEPARTMENT OF SURGERY [facility] Admission Date: 08/18/2019 ( LOS: 4 days ) Attending Provider: Jones Tiwari MD Interval History and Events: - Painful overnight - switched to PO dilaudid with better pain control - Afebrile, VSS - Tolerating PO without nausea or vomiting - Ambulating BP 129/73 (BP Location: Left lower arm, Patient Position: Lying on back) | Pulse 84 | Tem p 36.8 C (98.2 F) (Oral) | Resp 16 | Ht 1.473 m (4' 10") | Wt 127 kg (279 lb 15.8 oz) | SpO2 97% | BMI 58.52 kg/m | BSA 2.28 m General: No acute distress, awake resting comfortably in bed HEENT: Normocephalic, atraumatic Respiratory: CPAP, normal work of breathing Cardiovascular: Regular rate Abdomen: Ecchymosis of the abdomen, compressible hernia, slightly TTP Psych: Appropriate Data Recent Labs 08/19/19 1328 08/19/19 1735 GLU 94 146* Assessment and Plan: Dylan Romero is a 44 y.o. female with HTN, DM2, R CHF, hypothyroidism, morbid obesity s /p laparoscopic antecolic RYGB 2018, AMARA, bipolar disorder, depression, anxiety, history of stroke/TIA, DVT, and multiple hernia repairs presents with ventral hernia. Now sp ventral he rnia repair 08/19/2019 progressing well. - D/c IV dilaudid - Tylenol - PO dilaudid 2-3 mg - Start therapeutic Lovenox with plan to restart warfarin tonight - PT ordered - recommending home with assist PRN - Encourage OOB/ambulation - IS Dispo: Continue acute care. PT recommending home with assist PRN. Anticipate discharge michelle Chandler MD [facility], PGY-[address] Pager: [phone] signed by Jones Tiwari MD at 08/22/2019 1:36 PM PSTLin Gadiel Leyva MD - 08/21/2019 9:52 AM PSTFormatting of this note might be dif ferent from the original. DEPARTMENT OF SURGERY [facility] Admission Date: 08/18/2019 ( LOS: 3 days ) Attending Provider: Jones Tiwari MD Interval History and Events: - Painful overnight - oxy increased to 5-15 mg - Afebrile, VSS - Tolerating PO without nausea or vomiting - Ruiz removed - urinating after BP 112/64 (BP Location: Right lower arm, Patient Position: Lying on back) | Pulse 82 | Te mp 36.5 C (97.7 F) (Oral) | Resp 18 | Ht 1.473 m (4' 10") | Wt 127 kg (279 lb 15.8 oz ) | SpO2 99% | BMI 58.52 kg/m | BSA 2.28 m General: No acute distress, awake resting comfortably I nbed HEENT: Normocephalic, atraumatic Respiratory: CPAP Cardiovascular: Regular rate Abdomen: Ecchymosis of the abdomen, compressible hernia, slightly TTP Psych: Appropriate Data Recent Labs 08/18/19 1618 08/19/19 1328 08/19/19 1735 NA 143 -- -- K 3.9 -- -- CL 115* -- -- BICARB 25 -- -- BUN 11 -- -- CR 0.85 -- -- GLU 98 94 146* CA 9.1 -- -- Recent Labs 08/18/19 1618 WBC 11.29* HB 14.3 HCT 44.4 PLT 306 Assessment and Plan: Dylan Romero is a 44 y.o. female with HTN, DM2, R CHF, hypothyroidism, morbid obesity s /p laparoscopic antecolic RYGB 2018, AMARA, bipolar disorder, depression, anxiety, history of stroke/TIA, DVT, and multiple hernia repairs presents with ventral hernia. Now sp ventral he rnia repair 08/19/2019 progressing well. - D/c IV dilaudid - Tylenol, oxycodone 5-15 Q4H for pain control - Ppx lovenox today - Therapeutic lovenox tomorrow 08/22 w plans to transition to home warfarin - PT ordered - recommending home with assist PRN - Encourage OOB/ambulation - IS Dispo: Continue acute care. PT recommending home with assist PRN. Anticipate dc in 2-3 days Gadiel Chandler MD [facility], PGY-[address] Pager: [phone] Associated attestation - Jones Tiwari MD - 08/21/2019 9:57 AM PSTI performed a hist ory and physical examination of the patient and discussed her management with the resident. I reviewed the resident s note and agree with the documented findings and plan of care. JONES TIWARI MD [facility] [address] [place] [address] Valencia Zamora MD - 08/20/2019 8:42 AM PSTFormatting of this note might be different fro m the original. DEPARTMENT OF SURGERY [facility] Admission Date: 08/18/2019 ( LOS: 2 days ) Attending Provider: Jones Tiwari MD Interval History and Events: Pain controlled Good UOP Tolerating diet BP 111/61 (BP Location: Right lower arm, Patient Position: Lying on back) | Pulse 78 | Te mp 36.7 C (98.1 F) (Oral) | Resp 16 | Ht 1.473 m (4' 10") | Wt (!) 120.2 kg (265 lb) | SpO2 97% | BMI 55.39 kg/m | BSA 2.22 m General: No acute distress, sleeping HEENT: Normocephalic, atraumatic Respiratory: CPAP Cardiovascular: Regular rate Abdomen: Ecchymosis of the abdomen, compressible hernia, slightly TTP Psych: Appropriate Data Recent Labs 08/18/19 1618 08/19/19 1328 08/19/19 1735 NA 143 -- -- K 3.9 -- -- CL 115* -- -- BICARB 25 -- -- BUN 11 -- -- CR 0.85 -- -- GLU 98 94 146* CA 9.1 -- -- Recent Labs 08/18/19 1618 WBC 11.29* HB 14.3 HCT 44.4 PLT 306 Assessment and Plan: Dylan Romero is a 44 y.o. female with HTN, DM2, R CHF, hypothyroidism, morbid obesity s /p laparoscopic antecolic RYGB 2018, AMARA, bipolar disorder, depression, anxiety, history of stroke/TIA, DVT, and multiple hernia repairs presents with ventral hernia. Now sp ventral he rnia repair 08/19/2019 progressing well. 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 female s/p primary ventral hernia repair. Patient's pain and nausea are well controlled. She reports that she overall feels well after surgery, but is hungry b ecause she wasn't able to order dinner. Has tolerated crackers without nausea. O: Last Vitals: BP 135/49 | Pulse 86 | Temp 36.6 C (97.9 F) (Oral) | Resp 15 | Ht 1.47 3 m (4' 10") | Wt (!) 120.2 kg (265 lb) | SpO2 95% | BMI 55.39 kg/m | BSA 2.22 m Physical Examination: General: Well nourished female in NAD Lungs: Unlabored breathing on RA CV: Regular rate Abdomen: Soft, appropriately tender, Incisions c/d/i with surgical glue in place Extremities: WWP, no gross deformities A-P: Patient is a 44 y.o. female s/p primary ventral hernia repair. Recovering appropriatel y without signs of early post-operative complication. -Routine post operative care -Multimodal pain control Joselyn Everett MD [facility] General Surgery PGY1 [phone] Gadiel Armstrong MD - 08/19/2019 12:34 PM PST DEPARTMENT OF SURGERY [facility] Admission Date: 08/18/2019 ( LOS: 1 day ) Attending Provider: Jones Tiwari MD Interval History and Events: No acute events overnight NPO since MN No nausea or vomiting BP 98/67 (BP Location: Left lower arm, Patient Position: Lying on back) | Pulse 76 | Temp 36.3 C (97.3 F) (Oral) | Resp 16 | Ht 1.473 m (4' 10") | Wt (!) 120.2 kg (265 lb) | SpO2 97% | BMI 55.39 kg/m | BSA 2.22 m General: No acute distress, sleeping HEENT: Normocephalic, atraumatic Respiratory: CPAP Cardiovascular: Regular rate Abdomen: Ecchymosis of the abdomen, compressible hernia, slightly TTP Psych: Appropriate Data Recent Labs 08/18/19 1618 NA 143 K 3.9 CL 115* BICARB 25 BUN 11 CR 0.85 GLU 98 CA 9.1 Recent Labs 08/18/19 1618 WBC 11.29* HB 14.3 HCT 44.4 PLT 306 Assessment and Plan: Dylan Romero is a 44 y.o. female with HTN, DM2, R CHF, hypothyroidism, morbid obesity s /p laparoscopic antecolic RYGB 2018, AMARA, bipolar disorder, depression, anxiety, history of stroke/TIA, DVT, and multiple hernia repairs presents with ventral hernia. - NPO - Plan to proceed OR for open ventral hernia repair with mesh Gadiel Chandler MD [facility], PGY-[address] Pager: [phone] documented in this encounter Plan of Treatment +--------+ + + + + | Date | Type | Specialty | Care Team | Description | +--------+ + + + + | 03/22/ | Office | Cardiology | Aly Franks, | | | 2019 | Visit | | MD [address] | | | | | | [place], [place] | | | | | | [address] | | | | | | [phone] | | | | | | | | +--------+ + + + + | 04/04/ | Telephone-S | Surgery | Orquidea Cristobal, | | | 2019 | cheduled | | DOCUMENTATION BILLING CLERK [address] | | | | | | [place], [place] | | | | | | [address] | | | | | | [phone] | | | | | | | | +--------+ + + + + documented as of this encounter Procedures + +--------+ + + + | Procedure Name | Priori | Date/Time | Associated Diagnosis | Comments | | | ty | | | | + +--------+ + + + | INR | Routin | 08/23/2019 | | Results for this | | | e | 4:36 AM | | procedure are in the | | | | PST | | results section. | + +--------+ + + + | CBC (HEMOGRAM) ONLY | Routin | 08/22/2019 | | Results for this | | | e | 10:09 AM | | procedure are in the | | | | PST | | results section. | + +--------+ + + + | INR | Routin | 08/22/2019 | | Results for this | | | e | 10:09 AM | | procedure are in the | | | | PST | | results section. | + +--------+ + + + | CBC ONLY | Routin | 08/22/2019 | | Results for this | | | e | 10:09 AM | | procedure are in the | | | | PST | | results section. | + +--------+ + + + | CAPILLARY BLOOD | Routin | 08/19/2019 | Ventral hernia | Results for this | | GLUCOSE (NO CHG), | e | 5:35 PM | without obstruction | procedure are in the | | POC | | PST | or gangrene | results section. | + +--------+ + + + | VENTRAL HERNIA | Electi | 08/19/2019 | INCARCERATED | | | REPAIR | ve | 2:15 PM | INCISIONAL VENTRAL | | | | Surgic | PST | HERNIA CONTAINING | | | | al | | BOWEL | | + +--------+ + + + | CAPILLARY BLOOD | Routin | 08/19/2019 | Ventral hernia | Results for this | | GLUCOSE (NO CHG), | e | 1:28 PM | without obstruction | procedure are in the | | POC | | PST | or gangrene | results section. | + +--------+ + + + | ANTIBODY SCREEN | Routin | 08/19/2019 | | Results for this | | | e | 1:01 PM | | procedure are in the | | | | PST | | results section. | + +--------+ + + + | TYPE AND SCREEN | Routin | 08/19/2019 | | Results for this | | | e | 1:01 PM | | procedure are in the | | | | PST | | results section. | + +--------+ + + + | ABO & RH TYPE | Routin | 08/19/2019 | | Results for this | | | e | 1:01 PM | | procedure are in the | | | | PST | | results section. | + +--------+ + + + | BG-LAC,POC ISTAT | Urgent | 08/18/2019 | Ventral hernia | Results for this | | | | 4:32 PM | without obstruction | procedure are in the | | | | PST | or gangrene | results section. | + +--------+ + + + | UA, DIPSTICK ONLY | Urgent | 08/18/2019 | | Results for this | | | | 4:22 PM | | procedure are in the | | | | PST | | results section. | + +--------+ + + + | CBC AND AUTO DIFF | Urgent | 08/18/2019 | | Results for this | | | | 4:18 PM | | procedure are in the | | | | PST | | results section. | + +--------+ + + + | INR | Urgent | 08/18/2019 | | Results for this | | | | 4:18 PM | | procedure are in the | | | | PST | | results section. | + +--------+ + + + | CBC, WITH | Urgent | 08/18/2019 | | Results for this | | DIFFERENTIAL | | 4:18 PM | | procedure are in the | | | | PST | | results section. | + +--------+ + + + | COMPLETE METABOLIC | Urgent | 08/18/2019 | | Results for this | | SET | | 4:18 PM | | procedure are in the | | (NA,K,CL,CO2,BUN,CRE | | PST | | results section. | | AT,GLUC,CA,AST,ALT,B | | | | | | MARGIE TOTAL,ALK | | | | | | PHOS,ALB,PROT TOTAL) | | | | | + +--------+ + + + | APTT (ACT. PART. | Urgent | 08/18/2019 | | Results for this | | THROMBO TIME) | | 4:18 PM | | procedure are in the | | | | PST | | results section. | + +--------+ + + + | BLOOD BANK HOLD TUBE | Urgent | 08/18/2019 | | Results for this | | - DON | | 4:18 PM | | procedure are in the | | | | PST | | results section. | | T PROCESS | | | | | + +--------+ + + + | LIPASE, PLASMA | Urgent | 08/18/2019 | | Results for this | | | | 4:18 PM | | procedure are in the | | | | PST | | results section. | + +--------+ + + + | ED INFORMATION | Routin | 08/18/2019 | | Results for this | | EXCHANGE | e | 1:47 PM | | procedure are in the | | | | PST | | results section. | + +--------+ + + + documented in this encounter Results INR (08/23/2019 4:36 AM PST) + +-------+ + + + | Component | Value | Ref Range | Performed | Pathologist | | | | | At | Signature | + +-------+ + + + | INR | 1.04 | 0.90 - 1.20 INR | [facility] | | | | | | LABORATORY | | | | | | SERVICES, | | | | | | CORE | | + +-------+ + + + + + | Specimen | + + | Blood - Blood | | (substance) | + + + + + | Narrative | Performed At | + + + | INR Therapeutic ranges for full anticoagulation: INR for Venous | [facility] | | Thromboembolism (2.0 - 3.0) INR INR for most | LABORATORY | | patients with mech. valves (2.5 - 3.5) INR | [facility] | + + + + + + + + | Performing | Address | City/State/Zipcode | Phone Number | | Organization | | | | + + + + + | [facility] | [address] | [place] [address] | | | [place] [facility] | [address] | | | + + + + + CBC (HEMOGRAM) ONLY (08/22/2019 10:09 AM PST) + + + + + + | Component | Value | Ref Range | Performed | Pathologist | | | | | At | Signature | + + + + + + | WHITE CELL | 8.03 | 3.50 - 10.80 | [facility] | | | COUNT | | K/cu mm | LABORATORY | | | | | | SERVICES, | | | | | | CORE | | + + + + + + | RED CELL | 4.06 | 4.00 - 5.20 | [facility] | | | COUNT | | M/cu mm | LABORATORY | | | | | | SERVICES, | | | | | | CORE | | + + + + + + | HEMOGLOBIN | 12.3 | 12.0 - 16.0 | [facility] | | | | | g/dL | LABORATORY | | | | | | SERVICES, | | | | | | CORE | | + + + + + + | HEMATOCRIT | 39.8 | 36.0 - 46.0 % | [facility] | | | | | | LABORATORY | | | | | | SERVICES, | | | | | | CORE | | + + + + + + | MCV | 98.0 | 80.0 - 100.0 fL | [facility] | | | | | | LABORATORY | | | | | | SERVICES, | | | | | | CORE | | + + + + + + | MCHC | 30.9 (L) | 32.0 - 36.0 | [facility] | | | | | g/dL | LABORATORY | | | | | | SERVICES, | | | | | | CORE | | + + + + + + | RDW SD | 46.0 | 35.1 - 46.3 fL | [facility] | | | | | | LABORATORY | | | | | | SERVICES, | | | | | | CORE | | + + + + + + | PLATELET | 210 | 150 - 400 K/cu | [facility] [...] | + + + + + | [facility] | [address] | [place] [address] | | | SERVICES, CORE | [address] | | | + + + + + INR (08/22/2019 10:09 AM PST) + +-------+ + + + | Component | Value | Ref Range | Performed | Pathologist | | | | | At | Signature | + +-------+ + + + | INR | 1.08 | 0.90 - 1.20 INR | [facility] | | | | | | LABORATORY | | | | | | SERVICES, | | | | | | CORE | | + +-------+ + + + + + | Specimen | + + | Blood - Blood | | (substance) | + + + + + | Narrative | Performed At | + + + | INR Therapeutic ranges for full anticoagulation: INR for Venous | [facility] | | Thromboembolism (2.0 - 3.0) INR INR for most | LABORATORY | | patients with mech. valves (2.5 - 3.5) INR | SERVICES, CORE | + + + + + + + + | Performing | Address | City/State/Zipcode | Phone Number | | Organization | | | | + + + + + | [facility] | [address] | [place] [address] | | | SERVICES, CORE | [address] | | | + + + + + CAPILLARY BLOOD GLUCOSE (NO CHG), POC (08/19/2019 5:35 PM PST) + +---------+ + + + | Component | Value | Ref Range | Performed | Pathologist | | | | | At | Signature | + +---------+ + + + | BLOOD | 146 (H) | 70 - 99 mg/dL | [facility] - | | | GLUCOSE, | | | [place] | | | POC | | | [facility] | | | | | | OF CARE | | | | | | TESTS | | + +---------+ + + + + + | Specimen | + + | Blood | + + + + + + + | Performing | Address | City/State/Zipcode | Phone Number | | Organization | | | | + + + + + | [facility] | [address] | [place], [place] | | | [facility] | [address] | [address] | | | TESTS | | | | + + + + + CAPILLARY BLOOD GLUCOSE (NO CHG), POC (08/19/2019 1:28 PM PST) + +-------+ + + + | Component | Value | Ref Range | Performed | Pathologist | | | | | At | Signature | + +-------+ + + + | BLOOD | 94 | 70 - 99 mg/dL | [facility] - | | | GLUCOSE, | | | [place] | | | POC | | | [facility] | | | | | | OF CARE | | | | | | TESTS | | + +-------+ + + + + + | Specimen | + + | Blood | + + + + + + + | Performing | Address | City/State/Zipcode | Phone Number | | Organization | | | | + + + + + | [facility] | [address] | [place], [place] | | | [facility] | [address] | [address] | | | TESTS | | | | + + + + + ANTIBODY SCREEN (08/19/2019 1:01 PM PST) + + + + + [...] [facility] | [address] | [place] [address] | | | SERVICES, | [address] | | | | TRANSFUSION MEDICINE | | | | + + + + + ABO & RH TYPE (08/19/2019 1:01 PM PST) + + + + + [...] [facility] | [address] | [place] [address] | | | SERVICES, | [address] | | | | TRANSFUSION MEDICINE | | | | + + + + + BG-LAC,POC ISTAT (08/18/2019 4:32 PM PST) + + + + + + | Component | Value | Ref Range | Performed | Pathologist | | | | | At | Signature | + + + + + + | TOTAL CO2 | 23 | 23 - 29 mmol/L | [facility] - | | | JEMAL, POC | | | [place] | | | | | | [facility] | | | | | | OF CARE | | | | | | TESTS | | + + + + + + | PH VENOUS, | 7.33 (L) | 7.35 - 7.45 | [facility] - | | | POC | | | [place] | | | | | | [facility] | | | | | | OF CARE | | | | | | TESTS | | + + + + + + | PCO2 | 41 | 35 - 50 mmHg | [facility] - | | | VENOUS, POC | | | [place] | | | | | | [facility] [facility] | | | | | | OF CARE | | | | | | TESTS | | + + + + + + | HCO3 | 22 (L) | 22 - 28 mmol/L | [facility] - | | | VENOUS, POC | | | [place] | | | | | | [facility] | | | | | | OF CARE | | | | | | TESTS | | + + + + + + | PO2 VENOUS, | <41 (L) | 30 - 55 mmHg | [facility] - | | | POC | | | [place] | | | | | | [facility] | | | | | | OF CARE | | | | | | TESTS | | + + + + + + | O2 SAT | 46 | 95 - 98 % | [facility] - | | | VENOUS, POC | | | [place] | | | | | | [facility] | | | | | | OF CARE | | | | | | TESTS | | + + + + + + | LACTATE | 0.8 | 0.5 - 2.2 | [facility] - | | | VENOUS, POC | | mmol/L | [facility] | | | | | | [place] | | | | | | OF CARE | | | | | | TESTS | | + + + + + + | PAT TEMP | 36.5 | | [facility] - | | | VENOUS,POC | | | [place] | | | | | | [facility] | | | | | | OF CARE | | | | | | TESTS | | + + + + + + | BASE EXCESS | -4.0 | -2 - 3 mmol/L | [facility] - | | | JEMAL, POC | | | [place] | | | | | | [facility] | | | | | | OF CARE | | | | | | TESTS | | + + + + + + + + | Specimen | + + | | + + + + + + + | Performing | Address | City/State/Zipcode | Phone Number | | Organization | | | | + + + + + | [facility] | [address] | [place], [place] | | | [facility] | [address] | [address] | | | TESTS | | | | + + + + + UA, DIPSTICK ONLY (08/18/2019 4:22 PM PST) + + + + + + | Component | Value | Ref Range | Performed | Pathologist | | | | | At | Signature | + + + + + + | COLOR(UR) | Yellow | | [facility] | | | | | | LABORATORY | | | | | | SERVICES, | | | | | | CORE | | + + + + + + | APPEARANCE | Sl.Cloudy | | [facility] | | | | | | LABORATORY | | | | | | SERVICES, | | | | | | CORE | | + + + + + + | GLUCOSE(UR) | Negative | Negative, 50.0 | [facility] | | | | | mg/dL | LABORATORY | | | | | | SERVICES, | | | | | | CORE | | + + + + + + | PROTEIN(LAB | Negative | Negative, 30.0 | [facility] | | | ) | | mg/dL | LABORATORY | | | | | | SERVICES, | | | | | | CORE | | + + + + + + | BILIRUBIN | Negative | Negative | [facility] | | | | | | LABORATORY | | | | | | SERVICES, | | | | | | CORE | | + + + + + + | UROBILINOGE | <2.0 | <2.0 mg/dL | [facility] | | | N | | | LABORATORY | | | | | | SERVICES, | | | | | | CORE | | + + + + + + | PH(UR) | 7.0 | 5.0 - 8.0 | [facility] | | | | | | LABORATORY | | | | | | SERVICES, | | | | | | CORE | | + + + + + + | BLOOD | Negative | Negative | [facility] | | | | | | LABORATORY | | | | | | SERVICES, | | | | | | CORE | | + + + + + + | KETONES | Negative | Negative mg/dL | [facility] | | | | | | LABORATORY | | | | | | SERVICES, | | | | | | CORE | | + + + + + + | NITRITES | Negative | Negative | [facility] | | | | | | LABORATORY | | | | | | SERVICES, | | | | | | CORE | | + + + + + + | LEUKOCYTE | Negative | Negative | [facility] | | | ESTERASE | | | LABORATORY | | | | | | SERVICES, | | | | | | CORE | | + + + + + + | SPECIFIC | 1.018Comment: Specific | 1.005 - 1.030 | [facility] | | | GRAVITY | [place] performed by | | LABORATORY | | | | refractometry | | SERVICES, | | | | | | CORE | | + + + + + + + + | Specimen | + + | Urine - Urine | | specimen collection, | | clean catch | | (procedure) | + + + + + + + | Performing | Address | City/State/Zipcode | Phone Number | | Organization | | | | + + + + + | [facility] | [address] | [place] [address] | | | SERVICES, CORE | [address] | | | + + + + + BLOOD BANK HOLD TUBE - DON T PROCESS (08/18/2019 4:18 PM PST) + + + + + + | Component | Value | Ref Range | Performed | Pathologist | | | | | At | Signature | + + + + + + | SPECIMEN | Sample received with | | [facility] | | | COLLECTED, | adeq label/volume to | | LABORATORY | | | HELD | process | | SERVICES, | | | | [...] [facility] | [address] | [place] [address] | | | SERVICES, | [address] | | | | TRANSFUSION MEDICINE | | | | + + + + + CBC AND AUTO DIFF (08/18/2019 4:18 PM PST) + + + + + + | Component | Value | Ref Range | Performed | Pathologist | | | | | At | Signature | + + + + + + | WHITE CELL | 11.29 (H) | 3.50 - 10.80 | [facility] | | | COUNT | | K/cu mm | LABORATORY | | | | | | SERVICES, | | | | | | CORE | | + + + + + + | RED CELL | 4.62 | 4.00 - 5.20 | [facility] | [...] + + + + | HEMATOCRIT | 44.4 | 36.0 - 46.0 % | [facility] | | | | | | LABORATORY | | | | | | SERVICES, | | | | | | CORE | | + + + + + + | MCV | 96.1 | 80.0 - 100.0 fL | [facility] | | | | | | LABORATORY | | | | | | SERVICES, | | | | | | CORE | | + + + + + + | MCHC | 32.2 | 32.0 - 36.0 | [facility] | | | | | g/dL | LABORATORY | | | | | | SERVICES, | | | | | | CORE | | + + + + + + | RDW SD | 44.1 | 35.1 - 46.3 fL | [facility] | | | | | | LABORATORY | | | | | | SERVICES, | | | | | | CORE | | + + + + + + | PLATELET | 306 | 150 - 400 K/cu | [facility] | | | COUNT | | mm | LABORATORY | | | | | | SERVICES, | | | | | | CORE | | + + + + + + | MPV | 9.7 | 9.7 - 12.3 fL | [facility] [...] + + + + | NEUTROPHIL | 59.5 | 50.0 - 70.0 % | [facility] | | | % | | | LABORATORY | | | | | | SERVICES, | | | | | | CORE | | + + + + + + | LYMPHOCYTE | 29.4 | 18.0 - 42.0 % | [facility] | | | % | | | LABORATORY | | | | | | SERVICES, | | | | | | CORE | | + + + + + + | MONOCYTE % | 8.2 | 3.5 - 9.0 % | [facility] | | | | | | LABORATORY | | | | | | SERVICES, | | | | | | CORE | | + + + + + + | EOS % | 2.0 | 1.0 - 3.0 % | [facility] | | | | | | LABORATORY | | | | | | SERVICES, | | | | | | CORE | | + + + + + + | BASO % | 0.6 | 0.0 - 2.0 % | [facility] | | | | | | LABORATORY | | | | | | SERVICES, | | | | | | CORE | | + + + + + + | IG% | 0.3 | 0.0 - 1.0 % | [facility] | | | | | | LABORATORY | | | | | | SERVICES, | | | | | | CORE | | + + + + + + | NEUTROPHIL | 6.71 | 1.80 - 7.70 | [facility] | | | # | | K/cu mm | LABORATORY | | | | | | SERVICES, | | | | | | CORE | | + + + + + + | LYMPHOCYTE | 3.32 | 1.00 - 4.80 | [facility] | | | # | | K/cu mm | LABORATORY | | | | | | SERVICES, | | | | | | CORE | | + + + + + + | MONOCYTE # | 0.93 (H) | 0.10 - 0.90 | [facility] | | | | | K/cu mm | LABORATORY | | | | | | SERVICES, | | | | | | CORE | | + + + + + + | EOS # | 0.23 | 0.00 - 0.50 | [facility] | | | | | K/cu mm | LABORATORY | | | | | | SERVICES, | | | | | | CORE | | + + + + + + | BASO # | 0.07 | 0.00 - 0.10 | [facility] | | | | | K/cu mm | LABORATORY | | | | | | SERVICES, | | | | | | CORE | | + + + + + + | IG# | 0.03 | 0.00 - 0.10 | [facility] | [...] Performed At | + + + | Increased immature granulocytes (IG) define a left shift. Immature | [facility] | | granulocytes (IG) are an automated count of metamyelocytes, myelocytes | LABORATORY | | and promyelocytes. Bands are not included in the IG count. Bands are | SERVICES, CORE | | included in the neutrophil count. | | + + + + + + + + | Performing | Address | City/State/Zipcode | Phone Number | | Organization | | | | + + + + + | [facility] | [address] | [place] [address] | | | SERVICES, CORE | [address] | | | + + + + + APTT (ACT. PART. THROMBO TIME) (08/18/2019 4:18 PM PST) + +-------+ + + + | Component | Value | Ref Range | Performed | Pathologist | | | | | At | Signature | + +-------+ + + + | APTT | 28.9 | 26.0 - 36.0 | [facility] | | | | | seconds | LABORATORY | | | | | | SERVICES, | | | | | | CORE | | + +-------+ + + + + + | Specimen | + + | Blood - Blood | | (substance) | + + + + + | Narrative | Performed At | + + + | APTT values for monitoring heparin therapy may be affected by | [facility] | | specimens processed >1 hour after collection. APTT Therapeutic | LABORATORY | | Range: (75 - 120) sec Heparin | SERVICES, CORE | | levels of 0.35 - 0.7 U/mL | | + + + + + + + + | Performing | Address | City/State/Zipcode | Phone Number | | Organization | | | | + + + + + | [facility] | [address] | [place] [address] | | | SERVICES, CORE | [address] | | | + + + + + INR (08/18/2019 4:18 PM PST) + +-------+ + + + | Component | Value | Ref Range | Performed | Pathologist | | | | | At | Signature | + +-------+ + + + | INR | 1.11 | 0.90 - 1.20 INR | [facility] | | | | | | LABORATORY | | | | | | SERVICES, | | | | | | CORE | | + +-------+ + + + + + | Specimen | + + | Blood - Blood | | (substance) | + + + + + | Narrative | Performed At | + + + | INR Therapeutic ranges for full anticoagulation: INR for Venous | [facility] | | Thromboembolism (2.0 - 3.0) INR INR for most | LABORATORY | | patients with mech. valves (2.5 - 3.5) INR | SERVICES, CORE | + + + + + + + + | Performing | Address | City/State/Zipcode | Phone Number | | Organization | | | | + + + + + | [facility] | [address] | [place] [address] | | | SERVICES, CORE | [address] | | | + + + + + LIPASE, PLASMA (08/18/2019 4:18 PM PST) + +---------+ + + + | Component | Value | Ref Range | Performed | Pathologist | | | | | At | Signature | + +---------+ + + + | LIPASE | 117 (L) | 152 - 353 U/L | [facility] | | | (LAB) | | | [...] | + + + + + | [facility] | [address] | [place] [address] | | | SERVICES, CORE | [address] | | | + + + + + COMPLETE METABOLIC SET (NA,K,CL,CO2,BUN,CREAT,GLUC,CA,AST,ALT,BILI TOTAL,ALK PHOS,ALB,PROT TOTAL) (08/18/2019 4:18 PM PST) + +---------+ + + + | Component | Value | Ref Range | Performed | Pathologist | | | | | At | Signature | + +---------+ + + + | GLUCOSE, | 98 | 70 - 99 mg/dL | [facility] | | | PLASMA | | | LABORATORY | | | (LAB) | | | SERVICES, | | | | | | CORE | | + +---------+ + + + | BUN, PLASMA | 11 | 6 - 20 mg/dL | [facility] | | | (LAB) | | | LABORATORY | | | | | | SERVICES, | | | | | | CORE | | + +---------+ + + + | CREATININE | 0.85 | 0.60 - 1.10 | [facility] | | | PLASMA | | mg/dL | LABORATORY | | | (LAB) | | | SERVICES, | | | | | | CORE | | + +---------+ + + + | EGFR | >60 | >60 mL/min | [facility] | | | - | | | LABORATORY | | | [facility]O [facility] | | | SERVICES, | | | | | | CORE | | + +---------+ + + + | EGFR NON | >60 | >60 mL/min | [facility] | | | -RAJNI | | | LABORATORY | | | RICAN | | | SERVICES, | | | | | | CORE | | + +---------+ + + + | SODIUM, | 143 | 136 - 145 | [facility] | | | PLASMA | | mmol/L | LABORATORY | | | (LAB) | | | SERVICES, | | | | | | CORE | | + +---------+ + + + | POTASSIUM, | 3.9 | 3.4 - 5.0 | [facility] | | | PLASMA | | mmol/L | LABORATORY | | | (LAB) | | | SERVICES, | | | | | | CORE | | + +---------+ + + + | CHLORIDE, | 115 (H) | 97 - 108 mmol/L | [facility] | | | PLASMA | | | LABORATORY | | | (LAB) | | | SERVICES, | | | | | | CORE | | + +---------+ + + + | TOTAL CO2, | 25 | 21 - 32 mmol/L | [facility] | | | PLASMA | | | LABORATORY | | | (LAB) | | | SERVICES, | | | | | | CORE | | + +---------+ + + + | CALCIUM, | 9.1 | 8.6 - 10.2 | [facility] | | | PLASMA | | mg/dL | LABORATORY | | | (LAB) | | | SERVICES, | | | | | | CORE | | + +---------+ + + + | CALCIUM(ALB | 9.7 | 8.6 - 10.2 | [facility] | | | CORRECTED) | | mg/dL | LABORATORY | | | | | | SERVICES, | | | | | | CORE | | + +---------+ + + + | BILIRUBIN | 0.4 | 0.3 - 1.2 mg/dL | [facility] | | | TOTAL | | | LABORATORY | | | | | | SERVICES, | | | | | | CORE | | + +---------+ + + + | TOTAL | 7.4 | 6.4 - 8.2 g/dL | [facility] [...] + + + | ALK PHOS | 150 (H) | 42 - 98 U/L | [facility] | | | | | | LABORATORY | | | | | | SERVICES, | | | | | | CORE | | + +---------+ + + + | AST(SGOT) | 37 | <=41 U/L | [facility] | | | | | | LABORATORY | | | | | | SERVICES, | | | | | | CORE | | + +---------+ + + + | ALT (SGPT) | 30 | <=60 U/L | [facility] | | | | | | LABORATORY | | | | | | SERVICES, | | | | | | CORE | | + +---------+ + + + | ANION GAP | 3 (L) | 4 - 11 mmol/L | [facility] | | | | | | LABORATORY | | | | | | SERVICES, | | | | | | CORE | | + +---------+ + + + | ANION | 4 | 4 - 11 mmol/L | [facility] | | | GAP(ALB | | | LABORATORY | | | CORRECTED) | | | SERVICES, | | | | | | CORE | | + +---------+ + + + | POTASSIUM | Sl Hemo | | [facility] | | | CMNT | | | LABORATORY | | | | | | SERVICES, | | | | | | CORE | | + +---------+ + + + | AST CMNT | Sl Hemo | | [facility] | | | | | | LABORATORY | | | | | | SERVICES, | | | | | | CORE | | + +---------+ + + + | BUN/CREATIN | 13 | 8 - 25 | [facility] | | | INE RATIO | | | LABORATORY | | | | | | SERVICES, | | | | | | CORE | | + +---------+ + + + | GLOBULIN | 4.1 (H) | 2.3 - 3.5 gm/dL | [facility] | | | LVL | | | LABORATORY | | | | | | SERVICES, | | | | | | CORE | | + +---------+ + + + | ALBUMIN/STUART | 0.8 (L) | 0.9 - 2.0 | [facility] | | | BULIN RATIO | | | LABORATORY | | | | | | SERVICES, | | | | | | CORE | | + +---------+ + + + + + | Specimen | + + | Blood - Blood | | (substance) | + + + + + | Narrative | Performed At | + + + | Sample hemolyzed. Results for LD, K, and AST may be inaccurate. | [facility] | | Refer to comment under test. GFR is estimated using the MDRD | LABORATORY | | equation recommended by the National Kidney Disease Education Program. | SERVICES, CORE | | Estimated GFR Interpretive Information: <60 mL/min/1.73 sq m | | | Chronic Kidney Disease <15 mL/min/1.73 sq m | | | Kidney Failure Estimated GFR greater than 60 | | | mL/min/1.73 sq m is of limited clinical value. The MDRD equation | | | is not valid in the following situations: - Patients under 18 years | | | of age - Severe malnutrition or obesity - Vegetarian diet - Rapidly | | | changing kidney function - Amputees, paraplegics, or other | | | muscle-wasting diseases | | + + + + + + + + | Performing | Address | City/State/Zipcode | Phone Number | | Organization | | | | + + + + + | [facility] | [address] | [place] [address] | | | SERVICES, [facility] | [address] | | | + + + + + ED INFORMATION EXCHANGE (08/18/2019 1:47 PM PST) + + | Specimen | + + | | + + + + + | Narrative | Performed At | + + + | COLLECTIVE?NOTIFICATION?08/18/2019 13:47?DYLAN ROMERO?MRN: | COLLECTIVE | | [id number] Criteria Met 5 Visits In 12 Months Has | MEDICAL | | Guidelines PDMP Security and Safety No recent Security Events | [employer] | | currently on file ED Care Guidelines from [employer] [facility] | | | Last Updated: 12/06/18 9:53 AM Care Coordination: Receiving | | | mental health services with [employer] Please contact [employer] for | | | mental health concerns.? Sarah/Toni Centeno: [phone]? | | | Kishan: [phone].? These are guidelines and the provider | | | should exercise clinical judgment when providing care. Care | | | History Medical/Surgical 05/24/19 12:00 AM [facility] | | | Hospital PATIENT HAS AN APT ON 06/16/[address] HYLTON. | | | 05/11/19 12:00 AM [facility] Patient is | | | currently established with [facility]. If patient is seen in | | | the ED during business hours. Please contact CHWs at [facility] | | | Clinic. Care Recommendation: This patient has had 5 or more | | | Emergency Department visits in the last 12 months.? Patient requires | | | education on the scope and purpose of the ED as an acute care | | | provider not a Primary Care Provider and should not be utilized for | | | chronic conditions.? These are guidelines and the provider should | | | exercise clinical judgment when providing care. 08/23/18 12:00 AM | | | [facility] PATIENT HAS A PCP APT TO ESTABLISH | | | CARE ON 10/04/18 @ 10:00AM WITH DR HYLTON. Flags | | | [place] ED Disparity Measure - [place] has developed a flag ([place] | | | Disparity Measure) to help support Medicaid members with mental | | | illness. [facility] uses claims data with a 36-month | | | rolling look back period to identify members who have had two or | | | more diagnoses of mental illness (does not need to be primary) in | | | any setting (e.g. ED, Inpatient, primary care). Flagged members are | | | included in the ED Disparity Measure denominator population. Flags | | | are updated weekly. / Attributed By: [facility] ([facility]) / | | | Attributed On: 08/09/2019 Prescription Drug Report (12 Mo.) | | | Rx Details Fill Date Drug Description Qty. Prescriber CS MED | | | 2019-08-16 HYDROCODONE-ACETAMIN 5-325 MG 10 SAMANTHA TOPONCE, DMD 2 16.667 | | | 2019-08-12 ALPRAZOLAM 1 MG TABLET 90 WINSTON JEFFAS 4 0 2019-08-02 | | | SUDAFED 12HR 120 MG CAPLET 30 JONES LANEY, JR. 0 2019-07-26 | | | FENTANYL 12 MCG/HR PATCH 10 BETZY BALDWIN PA-C 2 0 2019-07-12 | | | ALPRAZOLAM 1 MG TABLET 60 WINSTON JOSE 4 0 2019-07-10 SUDOGEST 12 | | | HOUR 120 MG CAPLET 30 JONES LANEY, JR. 0 2019-06-28 FENTANYL 12 | | | MCG/HR PATCH 10 BETZY BALDWIN PA-C 2 0 2019-06-27 SUDOGEST 12 | | | HOUR 120 MG CAPLET 30 JONES LANEY, JR. 0 2019-06-26 | | | HYDROCODONE-ACETAMIN 5-325 MG 10 JAYRO GAGE MD 2 2019-06-15 | | | SUDOGEST 12 HOUR 120 MG CAPLET 30 [employer] JR. 0 | | | 2019-06-14 ALPRAZOLAM 1 MG TABLET 60 WINSTON JOSE 4 0 2019-06-03 | | | SUDOGEST 12 HOUR 120 MG CAPLET 30 [employer] JR. 0 2019-05-27 | | | PHENTERMINE 37.5 MG TABLET 90 ALY FRANKS MD 4 0 2019-05-24 | | | FENTANYL 12 MCG/HR PATCH 5 BETZY BALDWIN PA-C 2 0 2019-05-17 | | | SUDOGEST 12 HOUR 120 MG CAPLET 30 MARCO APPIAH PA-C 0 2019-05-17 | | | ALPRAZOLAM 1 MG TABLET 60 WINSTON JOSE 4 0 2019-05-14 OXYCODONE HCL 5 | | | MG TABLET 40 [place] UNIVERS 2 60 2019-05-12 FENTANYL 12 MCG/HR | | | PATCH 5 BETZY BALDWIN PA-C 2 0 2019-04-18 ALPRAZOLAM 1 MG TABLET | | | 60 WINSTON DAMON 4 0 2019-04-13 BELBUCA 600 MCG FILM 57 BETZY | | | JAVIER BALDWIN 0 Showing 20 of the 45 most-recent prescriptions | | | Rx Summary Metric Count CS II-V Rx 25 CS-II Rx 7 Quantity | | | Dispensed 1,749 Unique Prescribers 11 Unique Pharmacies 6 Benzos | | | 8 Opioids 5 Long Acting Opioids 0 E.D. Visit Count (12 | | | mo.) Facility Visits [facility] 1 [facility] and | | | [facility] 2 [facility] 7 Total 10 Note: | | | Visits indicate total known visits. Recent Emergency Department | | | Visit Summary Date Facility City State Type Diagnoses or Chief | | | Complaint Aug 18, 2019 [facility] [place] | | | [place] Emergency 10,800. [facility] 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 [place] Emergency | | | exterminator termite (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 Prsnl hx of TIA | | | (TIA), and cereb infrc w/o resid deficits Anxiety disorder, | | | unspecified Obesity, unspecified Personal history of | | | urinary (tract) infections Unspecified abdominal hernia without | | | obstruction or gangrene Allergy status to other antibiotic | | | agents status Unspecified abdominal pain Allergy status to | | | penicillin Nausea with vomiting, unspecified Jun 01, 2019 [facility] [place] [facility] Headache Allergy | | | status to penicillin Anxiety disorder, unspecified | | | Obesity, unspecified Migraine, unsp, not intractable, without | | | status migrainosus Other nursing home (current) drug therapy | | | Allergy status to oth drug/meds/biol subst status exterminator termite | | | (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 exterminator termite (current) use of | | | [facility] [place] [facility] | | | Anxiety disorder, unspecified Acute embolism and thrombosis of | | | deep veins of r up extrem Allergy status to penicillin | | | Other nursing home (current) drug therapy Pain in right arm | | | exterminator termite (current) use of aspirin Allergy status to oth | | | drug/meds/biol subst status May 20, [address] [facility] | | | [place] Emergency Generalized abdominal pain Allergy | | | status to oth drug/meds/biol subst status Unspecified abdominal | | | pain Anxiety disorder, unspecified Other chronic pain | | | Allergy status to penicillin prison (current) use of | | | aspirin Prsnl hx of TIA (TIA), and cereb infrc w/o resid | | | deficits Other buttermilk drier operator (current) drug therapy May 13, | | | 2019 [facility] [place] Emergency | | | 10,800. A303 18,400. Bariatric surgery status 18,400. | | | Ventral hernia without obstruction or gangrene 18,400. Nausea | | | with vomiting, unspecified 18,400. Unspecified abdominal pain | | | 18,400. Nonspecific mesenteric lymphadenitis May 10, [facility] [place] Emergency Nausea with vomiting, | | | unspecified Solitary pulmonary nodule Anxiety disorder, | | | unspecified Ventral hernia without obstruction or gangrene | | | Unspecified abdominal pain Diarrhea, unspecified Allergy | | | status to oth drug/meds/biol subst status Prsnl hx of TIA (TIA), | | | and cereb infrc w/o resid deficits Other buttermilk drier operator (current) | | | drug therapy Allergy status to penicillin December 03, 2018 [facility] | | | [facility]. [place] Emergency RIGHT LEG PAIN DUE TO FALL | | | Strain of unsp musc/tend at lower leg level, right leg, init | | | Aug 22, 2018 [facility] [place] Emergency Other | | | buttermilk drier operator (current) drug therapy Upper abdominal pain, | | | unspecified Bariatric surgery status Allergy status to oth | | | drug/meds/biol subst status Noninfective gastroenteritis and | | | colitis, unspecified Obesity, unspecified Anxiety | | | disorder, unspecified exterminator termite (current) use of aspirin | | | Allergy status to penicillin Personal history of pulmonary | | | embolism Recent Inpatient Visit Summary No recorded | | | inpatient visits. Care Team Provider Specialty Phone Fax Service | | | Dates Eagle Nino CHW Community Health Worker | | | Jul 03, 2019 - Current JONES DAVISON D.M.D. Dentist: | | | Proposal Engineer May 23, 2019 - | | | Current Rob Tilley Material Crew Supervisor/Transcription Manager [phone] | | | [phone] Mar 27, 2018 - Current Bernard Hylton MD Internal | | | Medicine: Pulmonary Disease Aug 23, 2018 - Current | | | [facility] Portal This patient has registered at the [facility] | | | [facility] Emergency Department For more information | | | visit: | | | [email or web address] | | | [email or web address] a PLEASE NOTE: 1. Any care recommendations and | | | other clinical information are provided as guidelines or for | | | historical purposes only, and providers should exercise their own | | | clinical judgment when providing care. 2. You may only use this | | | information for purposes of treatment, payment or health care | | | operations activities, and subject to the limitations of applicable | | | Collective Policies. 3. You should consult directly with the | | | organization that provided a care guideline or other clinical | | | history with any questions about additional information or accuracy | | | or completeness of information provided. ? 2020 [employer] | | | [employer]. - [email or web address] ([email or web address]) | | + + + + + | Procedure Note | + + | Service Account, Rtf Results Inbound - 08/18/2019 1:48 PM PST Formatting of this | | note might be different from the original.COLLECTIVE?NOTIFICATION?08/18/2019 | | 13:47?DYLAN ROMERO? Met 5 Visits In 12 Months Has Guidelines | | PDMPSecurity and SafetyNo recent Security Events currently on fileED Care Guidelines | | from [employer] Updated: 12/06/18 9:53 AM Care Coordination:Receiving | | mental health services with [employer] Please contact [employer] for mental health | | concerns.? Sarah/Toni [facility]: [phone]? [place]: [phone].?These are | | guidelines and the provider should exercise clinical judgment when providing care.Care | | HistoryMedical/Acuccvkn10/29/19 12:00 AM [facility] PATIENT HAS AN APT | | ON 06/16/[address] HYLTON.05/11/19 12:00 AM [facility] Patient is | | currently established with [facility]. If patient is seen in the ED during | | business hours. Please contact CHWs at [facility].Care Recommendation:This | | patient has had 5 or more Emergency Department visits in the last 12 months.? Patient | | requires education on the scope and purpose of the ED as an acute care provider not a | | Primary Care Provider and should not be utilized for chronic conditions.?These are | | guidelines and the provider should exercise clinical judgment when providing | | care.08/23/18 12:00 AM [facility] PATIENT HAS A PCP APT TO ESTABLISH CARE | | ON 10/04/18 @ 10:00AM WITH DR HYLTON. Flags [place] ED Disparity Measure - [place] has | | developed a flag ([place] Disparity [place]) to help support Medicaid members with | | mental illness. [facility] uses claims data with a 36-month rolling look | | back period to identify members who have had two or more diagnoses of mental illness | | (does not need to be primary) in any setting (e.g. ED, Inpatient, primary care). Flagged | | members are included in the ED Disparity Measure denominator population. Flags are | | updated weekly. / Attributed By: [facility] ([facility]) / Attributed On: | | 08/09/2019 Prescription Drug Report (12 Mo.)Rx DetailsFill Date Drug Description Qty. | | Prescriber CS MED 2019-08-16 HYDROCODONE-ACETAMIN 5-325 MG 10 SAMANTHA TOPONCE, DMD 2 16.667 | | 2019-08-12 ALPRAZOLAM 1 MG TABLET 90 WINSTON JEFFAS 4 0 2019-08-02 SUDAFED 12HR 120 MG | | CAPLET 30 JONES DAVISON JR. 0 2019-07-26 FENTANYL 12 MCG/HR PATCH 10 BETZY BALDWIN, | | PA-C 2 0 2019-07-12 ALPRAZOLAM 1 MG TABLET 60 WINSTON JEFFAS 4 0 2019-07-10 SUDOGEST 12 | | HOUR 120 MG CAPLET 30 JONES DAVISON, JR. 0 2019-06-28 FENTANYL 12 MCG/HR PATCH 10 | | BETZY BALDWIN PA-C 2 0 2019-06-27 SUDOGEST 12 HOUR 120 MG CAPLET 30 JONES DAVISON, | | JR. 0 2019-06-26 HYDROCODONE-ACETAMIN 5-325 MG 10 JAYRO GAGE MD 2 25 2019-06-15 | | SUDOGEST 12 HOUR 120 MG CAPLET 30 JONES DAVISON, JR. 0 2019-06-14 ALPRAZOLAM 1 MG | | TABLET 60 WINSTON JEFFAS 4 0 2019-06-03 SUDOGEST 12 HOUR 120 MG CAPLET 30 JONES DAVISON, | | JR. 0 2019-05-27 PHENTERMINE 37.5 MG TABLET 90 ALY FRANKS MD 4 0 2019-05-24 | | FENTANYL 12 MCG/HR PATCH 5 BETZY BALDWIN PA-C 2 0 2019-05-17 SUDOGEST 12 HOUR 120 MG | | CAPLET 30 MARCO APPIAH PA-C 0 2019-05-17 ALPRAZOLAM 1 MG TABLET 60 WINSTON SPAS 4 0 | | 2019-05-14 OXYCODONE HCL 5 MG TABLET 40 [place] UNIVERS 2 60 2019-05-12 FENTANYL 12 | | MCG/HR PATCH 5 BETZY BALDWIN PA-C 2 0 2019-04-18 ALPRAZOLAM 1 MG TABLET 60 WINSTON | | JEFFAS 4 0 2019-04-13 BELBUCA 600 MCG FILM 57 BETZY BALDWIN PA-C 0 Showing 20 of the | | 45 most-recent prescriptions Rx SummaryMetric Count CS II-V Rx 25 CS-II Rx 7 Quantity | | Dispensed 1,749 Unique Prescribers 11 Unique Pharmacies 6 Benzos 8 Opioids 5 Long Acting | | Opioids 0 E.D. Visit Count (12 mo.)Facility Visits [facility] 1 [facility] | | [employer] 2 [facility] 7 Total 10 Note: Visits indicate | | total known visits. Recent Emergency Department Visit SummaryDate Facility [facility] State | | Type Diagnoses or Chief Complaint Aug 18, 2019 [facility] | | [place] Emergency 10,800. amr Jun 25, 2019 [facility] [place] Emergency | | prison (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 Anxiety disorder, unspecified | | Cellulitis of abdominal wall Acute embolism and thrombosis of deep veins of r up | | extrem Nicotine dependence, unspecified, uncomplicated Migraine, unsp, not | | intractable, without status migrainosus Unspecified abdominal pain Allergy status | | to oth drug/meds/biol subst status Other nursing home (current) drug therapy Allergy | | status to penicillin Jun 19, 2019 [facility] [place] Emergency prison | | (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 Prsnl hx of TIA (TIA), and cereb infrc w/o resid | | deficits Anxiety disorder, unspecified Obesity, unspecified Personal history of | | urinary (tract) infections Unspecified abdominal hernia without obstruction or | | gangrene Allergy status to other antibiotic agents status Unspecified abdominal | | pain Allergy status to penicillin Nausea with vomiting, unspecified Jun 01, 2019 | | [facility] [place] Emergency Headache Allergy status to penicillin | | Anxiety disorder, unspecified Obesity, unspecified Migraine, unsp, not | | intractable, without status migrainosus Other nursing home (current) drug therapy | | Allergy status to oth drug/meds/biol subst status exterminator termite (current) use of | | anticoagulants exterminator termite (current) use of aspirin May 23, 2019 [facility] [place] [facility] | | [place] Emergency Anxiety disorder, unspecified Acute embolism and thrombosis of | | deep veins of r up extrem Allergy status to penicillin Other nursing home (current) | | drug therapy Pain in right arm prison (current) use of aspirin Allergy | | status to oth drug/meds/biol subst status May 20, 2019 [facility] [place] | | Emergency Generalized abdominal pain Allergy status to oth drug/meds/biol subst | | status Unspecified abdominal pain Anxiety disorder, unspecified Other chronic | | pain Allergy status to penicillin exterminator termite (current) use of aspirin Prsnl hx | | of TIA (TIA), and cereb infrc w/o resid deficits Other nursing home (current) drug | | therapy May 13, 2019 [facility] [place] Emergency | | 10,800. A303 18,400. Bariatric surgery status 18,400. Ventral hernia without | | obstruction or gangrene 18,400. Nausea with vomiting, unspecified 18,400. | | Unspecified abdominal pain 18,400. Nonspecific mesenteric lymphadenitis May 10, 2019 | | [facility] [place] Emergency Nausea with vomiting, unspecified Solitary | | pulmonary nodule Anxiety disorder, unspecified Ventral hernia without obstruction | | or gangrene Unspecified abdominal pain Diarrhea, unspecified Allergy status to | | oth drug/meds/biol subst status Prsnl hx of TIA (TIA), and cereb infrc w/o resid | | deficits Other nursing home (current) drug therapy Allergy status to penicillin November | | 2018 [facility]. [place] Emergency RIGHT LEG PAIN DUE TO FALL | | Strain of unsp musc/tend at lower leg level, right leg, init Aug 22, [address] [facility] | | [facility] 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 Care TeamProvider Specialty | | Phone Fax Service Dates Eagle Nino CHW Community Health Worker | | Jul 03, 2019 - Current JONES DAVISON D.M.D. Dentist: Proposal Engineer [phone] | [phone] May 23, 2019 - Current Rob Tilley Material Crew Supervisor/Care | | Coordinator Mar 27, 2018 - Current Bernard Hylton MD Internal Medicine: | | Pulmonary Disease Aug 23, 2018 - [facility] | | at the [facility] [place] [facility] For more information | | visit: [email or web address] | | PLEASE NOTE: 1. Any care recommendations and other clinical information are provided | | as guidelines or for historical purposes only, and providers should exercise their own | | clinical judgment when providing care. 2. You may only use this information for | | purposes of treatment, payment or health care operations activities, and subject to the | | limitations of applicable Collective Policies. 3. You should consult directly with | | the organization that provided a care guideline or other clinical history with any | | questions about additional information or accuracy or completeness of information | | provided.? 2019 [employer]. - [email or web address]) | | Allergy status to oth drug/meds/biol subst status | | Other nursing home (current) drug therapy | | Allergy status to penicillin | | | |Jun 19, 2019 [facility] [place] Emergency | | prison (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 | | Prsnl hx of TIA (TIA), and cereb infrc w/o resid deficits | | Anxiety disorder, unspecified | | Obesity, unspecified | | Personal history of urinary (tract) infections | | Unspecified abdominal hernia without obstruction or gangrene | | Allergy status to other antibiotic agents status | | Unspecified abdominal pain | | Allergy status to penicillin | | Nausea with vomiting, unspecified | | | |Jun 01, 2019 [facility] [place] Emergency | | Headache | | Allergy status to penicillin | | Anxiety disorder, unspecified | | Obesity, unspecified | | Migraine, unsp, not intractable, without status migrainosus | | Other buttermilk drier operator (current) drug therapy | | Allergy status to oth drug/meds/biol subst status | | exterminator termite (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 | | exterminator termite (current) use of aspirin | | | |May 23, 2019 [facility] [place] Emergency | | Anxiety disorder, unspecified | | Acute embolism and thrombosis of deep veins of r up extrem | | Allergy status to penicillin | | Other buttermilk drier operator (current) drug therapy | | Pain in right arm | | prison (current) use of aspirin | | Allergy status to oth drug/meds/biol subst status | | | |May 20, 2019 [facility] [place] Emergency | | Generalized abdominal pain | | Allergy status to oth drug/meds/biol subst status | | Unspecified abdominal pain | | Anxiety disorder, unspecified | | Other chronic pain | | Allergy status to penicillin | | exterminator termite (current) use of aspirin | | Prsnl hx of TIA (TIA), and cereb infrc w/o resid deficits | | Other nursing home (current) drug therapy | | | |May 13, 2019 [facility] [place] Emergency | | 10,800. A303 | | 18,400. Bariatric surgery status | | 18,400. Ventral hernia without obstruction or gangrene | | 18,400. Nausea with vomiting, unspecified | | 18,400. Unspecified abdominal pain | | 18,400. Nonspecific mesenteric lymphadenitis | | | |May 10, 2019 [facility] [place] Emergency | | Nausea with vomiting, unspecified | | Solitary pulmonary nodule | | Anxiety disorder, unspecified | | Ventral hernia without obstruction or gangrene | | Unspecified abdominal pain | | Diarrhea, unspecified | | Allergy status to oth drug/meds/biol subst status | | Prsnl hx of TIA (TIA), and cereb infrc w/o resid deficits | | Other nursing home (current) drug therapy | | Allergy status to penicillin | | | |December 03, 2018 [facility]. [place] Emergency | | RIGHT LEG PAIN DUE TO FALL | | Strain of unsp musc/tend at lower leg level, right leg, init | | | |Aug 22, 2018 [facility] [place] Emergency | | Other buttermilk drier operator (current) drug therapy | | Upper abdominal pain, unspecified | | Bariatric surgery status | | Allergy status to oth drug/meds/biol subst status | | Noninfective gastroenteritis and colitis, unspecified | | Obesity, unspecified | | Anxiety disorder, unspecified | | prison (current) use of aspirin | | Allergy status to penicillin | | Personal history of pulmonary embolism | | | | | | | |Recent Inpatient Visit Summary | |No recorded inpatient visits. | | | |Care Team | |Provider Specialty Phone Fax Service Dates | |Eagle Nino CHW Community Health Worker Jul 03, 2019 - Current | |JONES DAVISON D.M.D. Dentist: Proposal Engineer May 23 019 - Current | |Rob Tilley Material Crew Supervisor/Transcription Manager Mar 27, 2018 - Current | |Bernard Hylton MD Internal Medicine: Pulmonary Disease Aug 23, 2018 - Current | | | |Collective Portal | |This patient has registered at the [facility] Emergency Departmen t | |For more information visit: [email or web address] | |PLEASE NOTE: | | 1. Any care recommendations and other clinical information are provided as guidelines or for historical purposes only, and providers should exercise their own clinical judgment whe n providing care. | | 2. You may only use this information for purposes of treatment, payment or health care o perations activities, and subject to the limitations of applicable Collective Policies. | | 3. You should consult directly with the organization that provided a care guideline or o ther clinical history with any questions about additional information or accuracy or complet eness of information provided. | | | |? 2020 [employer]. - [email or web address] ([email or web address]) | + + + + + + + | Performing | Address | City/[facility]/Zipcode | Phone Number | | Organization | | | | + + + + + | [employer] | [address] | [place], [place] | [phone] | | [employer] | [address] | [address] | | + + + + + documented in this encounter Visit Diagnoses Not on filedocumented in this encounter Administered Medications + +--------+ + +------+------+ | Medication Order | MAR | Action | Dose | Rate | Site | | | Action | Date | | | | + +--------+ + +------+------+ | acetaminophen (TYLENOL) tablet | Given | 08/23/19 | 1,000 mg | | | | 1,000 mg 1,000 mg, oral, EVERY 6 | | 20 12:13 | | | | | HOURS, First dose (after last | | PM PST | | | | | modification) on 08/20/19 at | | | | | | | 2200, Until Discontinued | | | | | | + +--------+ + +------+------+ +-------+ + +---+---+ | Given | 08/23/19 | 1,000 mg | | | | | 20 6:10 | | | | | | AM PST | | | | +-------+ + +---+---+ | Given | 08/22/19 | 1,000 mg | | | | | 20 8:27 | | | | | | PM PST | | | | +-------+ + +---+---+ +---+---+ | | | +---+---+ + +-------+ +------+---+---+ | ALPRAZolam (XANAX) tablet 1 mg | Given | 08/23/19 | 1 mg | | | | 1 mg, oral, TWICE DAILY | | 20 9:28 | | | | | NEEDED, Starting [facility] 08/18/19 at | | AM PST | | | | | 1821, Until 08/23/19 at 1901, | | | | | | | anxiety | | | | | | + +-------+ +------+---+---+ +-------+ +------+---+---+ | Given | 08/22/19 | 1 mg | | | | | 20 9:17 | | | | | | PM PST | | | | +-------+ +------+---+---+ | Given | 08/21/19 | 1 mg | | | | | 20 8:20 | | | | | | PM PST | | | | +-------+ +------+---+---+ +---+---+ | | | +---+---+ + +-------+ +-------+---+---+ | atenoloL (TENORMIN) tablet 50 | Given | 08/19/19 | 50 mg | | | | mg 50 mg, oral, AT BEDTIME, | | 20 8:50 | | | | | First dose on Thu08/18/19 at | | PM PST | | | | | 2200, Until Discontinued | | | | | | + +-------+ +-------+---+---+ +-------+ +-------+---+---+ | Given | 08/18/19 | 50 mg | | | | | 20 9:26 | | | | | | PM PST | | | | +-------+ +-------+---+---+ +---+---+ | | | +---+---+ + +-------+ +-------+---+ + | bupivacaine (PF) | Given | 08/19/19 | 50 mL | | Surgical | | (MARCAINE,SENSORCAINE-MPF) 0.5 % | | 20 5:01 | | | Site | | (5 mg/mL) injection | | PM PST | | | | | INTRAPROCEDURE PRN, Starting Fri | | | | | | | 08/19/19 at 1701, Until Fri | | | | | | | 08/19/19 at 1938 | | | | | | + +-------+ +-------+---+ + +---+---+ | | | +---+---+ + +-------+ +-------+---+---+ | chlorproMAZINE (THORAZINE) | Given | 08/22/19 | 50 mg | | | | tablet 50 mg 50 mg, oral, EVERY | | 20 8:28 | | | | | EVENING, First dose on Thu | | PM PST | | | | | 08/18/19 at 2315, Until | | | | | | | Discontinued | | | | | | + +-------+ +-------+---+---+ +-------+ +-------+---+---+ | Given | 08/21/19 | 50 mg | | | | | 20 8:38 | | | | | | PM PST | | | | +-------+ +-------+---+---+ | Given | 08/20/19 | 50 mg | | | | | 20 8:17 | | | | | | PM PST | | | | +-------+ +-------+---+---+ +---+---+ | | | +---+---+ + +-------+ +--------+---+---+ | docusate sodium (COLACE) | Given | 08/22/19 | 200 mg | | | | capsule 200 mg 200 mg, oral, | | 20 8:38 | | | | | DAILY, First dose on Thu08/18/19 | | AM PST | | | | | at 1830, Until Discontinued | | | | | | + +-------+ +--------+---+---+ +-------+ +--------+---+---+ | Given | 08/21/19 | 200 mg | | | | | 20 8:03 | | | | | | AM PST | | | | +-------+ +--------+---+---+ | Given | 08/20/19 | 200 mg | | | | | 20 9:16 | | | | | | AM PST | | | | +-------+ +--------+---+---+ +---+---+ | | | +---+---+ + +-------+ +--------+---+---------+ | enoxaparin (LOVENOX) injection | Given | 08/23/19 | 120 mg | | Abdomen | | 120 mg 120 mg (rounded from 127 | | 20 8:54 | | | | | mg = 1 mg/kg | | AM PST | | | | | 127 kg), subcutaneous, EVERY 12 | | | | | | | HOURS, First dose on 08/22/19 | | | | | | | at 0900, Until Discontinued | | | | | | + +-------+ +--------+---+---------+ +-------+ +--------+---+---------+ | Given | 08/22/19 | 120 mg | | Abdomen | | | 20 8:28 | | | | | | PM PST | | | | +-------+ +--------+---+---------+ | Given | 08/22/19 | 120 mg | | Abdomen | | | 20 8:38 | | | | | | AM PST | | | | +-------+ +--------+---+---------+ +---+---+ | | | +---+---+ + +-------+ +------+---+---+ | HYDROmorphone (DILAUDID) tablet | Given | 08/23/19 | 3 mg | | | | 2-3 mg 2-3 mg, oral, EVERY 4 | | 20 12:13 | | | | | HOURS NEEDED, Starting Sun | | PM PST | | | | | 08/21/19 at 2028, Until Tue | | | | | | | 08/23/19 at 1901, moderate pain | | | | | | + +-------+ +------+---+---+ +-------+ +------+---+---+ | Given | 08/23/19 | 3 mg | | | | | 20 8:11 | | | | | | AM PST | | | | +-------+ +------+---+---+ | Given | 08/23/19 | 3 mg | | | | | 20 3:52 | | | | | | AM PST | | | | +-------+ +------+---+---+ +---+---+ | | | +---+---+ + + + +---------+---+---------+ | lidocaine (LIDODERM) 5 % patch | Applied | 08/22/19 | 1 patch | | Abdomen | | 1 patch 1 patch, transdermal, | Patch | 20 6:36 | | | | | EVERY 24 HOURS, First dose on Jasmyne | | PM PST | | | | | 08/18/19 at 1830, Until | | | | | | | Discontinued | | | | | | + + + +---------+---+---------+ + + +---------+---+---------+ | Applied Patch | 08/21/19 | 1 patch | | Abdomen | | | 20 4:42 | | | | | | PM PST | | | | + + +---------+---+---------+ | Applied Patch | 08/20/19 | 1 patch | | Abdomen | | | 20 7:54 | | | | | | PM PST | | | | + + +---------+---+---------+ +---+---+ | | | +---+---+ + +-------+ +-------+---+---+ | lurasidone (LATUDA) tablet 40 | Given | 08/22/19 | 40 mg | | | | mg 40 mg, oral, AT BEDTIME, | | 20 8:27 | | | | | First dose on Jasmyne 08/18/19 at | | PM PST | | | | | 2200, Until Discontinued | | | | | | + +-------+ +-------+---+---+ +-------+ +-------+---+---+ | Given | 08/21/19 | 40 mg | | | | | 20 9:38 | | | | | | PM PST | | | | +-------+ +-------+---+---+ | Given | 08/20/19 | 40 mg | | | | | 20 8:17 | | | | | | PM PST | | | | +-------+ +-------+---+---+ + +---+ | | | + +---+ | menthol-zinc oxide (CALAZIME) | | | topical paste 0.2%-16.5% | | | topical, NEEDED, Starting Sat | | | 08/20/19 at 1232, Until Tue | | | 08/23/19 at 1901, skin | | | irritation/breakdown | | + +---+ | | | + +---+ + +-------+ +-------+---+---+ | metoclopramide HCl (REGLAN) | Given | 08/19/19 | 10 mg | | | | tablet 10 mg 10 mg, oral, EVERY | | 20 8:42 | | | | | 6 HOURS NEEDED, Starting Jasmyne | | AM PST | | | | | 08/18/19 at 1822, Until Tue | | | | | | | 08/23/19 at 1901, nausea/vomiting, | | | | | | | third line | | | | | | + +-------+ +-------+---+---+ +-------+ +-------+---+---+ | Given | 08/18/19 | 10 mg | | | | | 20 7:13 | | | | | | PM PST | | | | +-------+ +-------+---+---+ +---+---+ | | | +---+---+ + +-------+ +-------+---+---+ | PARoxetine (PAXIL) tablet 40 mg | Given | 08/22/19 | 40 mg | | | | 40 mg, oral, AT BEDTIME, First | | 20 8:26 | | | | | dose on Thu08/18/19 at 2200, | | PM PST | | | | | Until Discontinued | | | | | | + +-------+ +-------+---+---+ +-------+ +-------+---+---+ | Given | 08/21/19 | 40 mg | | | | | 20 9:27 | | | | | | PM PST | | | | +-------+ +-------+---+---+ | Given | 08/20/19 | 40 mg | | | | | 20 8:16 | | | | | | PM PST | | | | +-------+ +-------+---+---+ +---+---+ | | | +---+---+ + +-------+ +------+---+---+ | polyethylene glycol (MIRALAX) | Given | 08/22/19 | 17 g | | | | packet 17 g 17 g (1 packet), | | 20 8:37 | | | | | oral, DAILY, First dose on Jasmyne | | AM PST | | | | | 08/18/19 at 1830, Until | | | | | | | Discontinued | | | | | | + +-------+ +------+---+---+ +---+---+ | | | +---+---+ + +-------+ +---------+---+---+ | pramipexole (MIRAPEX) tablet | Given | 08/22/19 | 0.25 mg | | | | 0.25 mg 0.25 mg, oral, AT | | 20 8:28 | | | | | BEDTIME, First dose on Jasmyne | | PM PST | | | | | 08/18/19 at 2200, Until | | | | | | | Discontinued | | | | | | + +-------+ +---------+---+---+ +-------+ +---------+---+---+ | Given | 08/21/19 | 0.25 mg | | | | | 20 9:27 | | | | | | PM PST | | | | +-------+ +---------+---+---+ | Given | 08/20/19 | 0.25 mg | | | | | 20 8:17 | | | | | | PM PST | | | | +-------+ +---------+---+---+ +---+---+ | | | +---+---+ + +-------+ +------+---+---+ | prochlorperazine (COMPAZINE) | Given | 08/23/19 | 5 mg | | | | injection 5 mg 5 mg, | | 20 9:00 | | | | | intravenous, EVERY 6 HOURS | | AM PST | | | | | NEEDED, Starting Thu08/18/19 at | | | | | | | 2118, Until Thu08/23/19 at 1901, | | | | | | | nausea/vomiting, first line, | | | | | | | nausea/vomiting, second line | | | | | | + +-------+ +------+---+---+ +-------+ +------+---+---+ | Given | 08/22/19 | 5 mg | | | | | 20 3:29 | | | | | | PM PST | | | | +-------+ +------+---+---+ | Given | 08/20/19 | 5 mg | | | | | 20 8:30 | | | | | | AM PST | | | | +-------+ +------+---+---+ +---+---+ | | | +---+---+ + +-------+ +-------+---+---+ | simethicone chew (MYLICON) | Given | 08/23/19 | 80 mg | | | | tablet 80 mg 80 mg, oral, THREE | | 20 9:28 | | | | | TIMES DAILY NEEDED, Starting | | AM PST | | | | | 08/20/19 at 2023, Until Tue | | | | | | | 08/23/19 at 1901, bloating | | | | | | + +-------+ +-------+---+---+ +-------+ +-------+---+---+ | Given | 08/22/19 | 80 mg | | | | | 20 8:28 | | | | | | PM PST | | | | +-------+ +-------+---+---+ | Given | 08/21/19 | 80 mg | | | | | 20 9:27 | | | | | | PM PST | | | | +-------+ +-------+---+---+ +---+---+ | | | +---+---+ + +-------+ +--------+---+---+ | topiramate (TOPAMAX) tablet 100 | Given | 08/23/19 | 100 mg | | | | mg 100 mg, oral, TWICE DAILY, | | 20 8:54 | | | | | First dose on [facility] 08/18/19 at | | AM PST | | | | | 2145, Until Discontinued | | | | | | + +-------+ +--------+---+---+ +-------+ +--------+---+---+ | Given | 08/22/19 | 100 mg | | | | | 20 8:28 | | | | | | PM PST | | | | +-------+ +--------+---+---+ | Given | 08/22/19 | 100 mg | | | | | 20 8:39 | | | | | | AM PST | | | | +-------+ +--------+---+---+ +---+---+ | | | +---+---+ + +-------+ +-------+---+---+ | torsemide (DEMADEX) tablet 50 | Given | 08/22/19 | 50 mg | | | | mg 50 mg, oral, TWICE DAILY, | | 20 8:39 | | | | | First dose on 08/20/19 at | | AM PST | | | | | 1030, Until Discontinued | | | | | | + +-------+ +-------+---+---+ +-------+ +-------+---+---+ | Given | 08/21/19 | 50 mg | | | | | 20 8:02 | | | | | | AM PST | | | | +-------+ +-------+---+---+ | Given | 08/20/19 | 50 mg | | | | | 20 8:17 | | | | | | PM PST | | | | +-------+ +-------+---+---+ +---+---+ | | | +---+---+ + +-------+ +-------+---+---+ | warfarin (COUMADIN) tablet 10 | Given | 08/22/19 | 10 mg | | | | mg 10 mg, oral, EVERY EVENING, | | 20 8:27 | | | | | First dose on Thu08/22/19 at | | PM PST | | | | | 2100, Until Discontinued | | | | | | + +-------+ +-------+---+---+ +---+---+ | | | +---+---+ documented in this encounter
--- OUTSIDE RECORDS SUMMARY | ~2020-02-27 | XMS | Encounter Summary ---
Demographics + + + | Address | [address] | | | [place] [address] | + + + | Home Phone | | + + + | Preferred Language | Unknown | + + + | Marital Status | Single | + + + | Evangelical Affiliation | NON | + + + | Race | White | + + + | Ethnic Group | Not or | + + + Author + + + | Author | [facility] | + + + | Organization | [facility] | + + + | Address | Unknown | + + + | Phone | Unavailable | + + + Support + + + + + | Name | Relationship | Address | Phone | + + + + + | Katalina Padilla | ECON | [address] | | | | | [place], [place] | | | | | [address] | | + + + + + | Ellie Vang | ECON | Unknown | | + + + + + Care Team Providers + +------+ + | Care Reeling Machine Operator Name | Role | Phone | + +------+ + | Fadi Goodrich DO | PCP | | + +------+ + Reason for Visit + + + | Reason | Comments | + + + | Medical Records | [facility] - OUTSIDE RECORDS | | Review | | + + + Encounter Details +--------+ + + + + | Date | Type | Department | Care Team | Description | +--------+ + + + + | 01/05/ | Abstract | Digestive Health | Hernandez Brian, | Medical Records | | 2013 | | [place] [address] | [address] [facility] | Review ([facility] - | | | | [facility] | [facility] | OUTSIDE RECORDS) | | | | for Health and | [place], [place] | | | | | [place] [address] | [address] | | | | | [place], [place] | [phone] | | | | | [address] | | | | | | [phone] | | | +--------+ + + + [...] Flannery | | | | | | [place], [place] | | | | | | [address] | | | | | | [phone] | | | | | | | | +--------+ + + + + | 04/04/ | Telephone-S | Surgery | Orquidea Cristobal, | | | 2020 | sherrill | | MELTING OPERATOR [address] | | | | | | [place], [place] | | | | | | [address] | | | | | | [phone] | | | | | | | | +--------+ + + + + documented as of this encounter Visit Diagnoses Not on filedocumented in this encounter"
--- OUTSIDE RECORDS SUMMARY | ~2020-02-27 | XMS | Encounter Summary ---
Demographics + + + | Address | [address] | | | [place] [address] | + + + | Home Phone | | + + + | Preferred Language | Unknown | + + + | Marital Status | Single | + + + | Sikhism Affiliation | NON | + + + [...] + | Katalina Padilla | ECON | [address] | | | | | [place], [place] | | | | | [address] | | + + + + + | Ellie Vang | ECON | Unknown | | + + + + + Care Team Providers + +------+ + | Care Manager Welding Name | Role | Phone | + [...] | +--------+ + + + + | 04/05/ | Abstract | [facility] | Clinic, Surgery | Medical Records | | 2019 | | Center [place] [address] | | Review | | | | [facility] | | | | | | for Health and | | | | | | [facility] | | | | | | [place], [place] | | | | | | [address] | | | | | | [phone] | | | +--------+ + + + [...] | Visit | | MD [address] | | | | | | [place], [place] | | | | | | [address] | | | | | | [phone] | | | | | | | | +--------+ + + + + | 04/04/ | Telephone-S | Surgery | Orquidea Cristobal, | | | 2019 | cheduled | | MYCOLOGY TEACHER [address] | | | | | | [facility], [place] | | | | | | [address] | | | | | | [phone] | | | | | | | | +--------+ + + + + documented as of this encounter Visit Diagnoses Not on filedocumented in this encounter"
--- OUTSIDE RECORDS SUMMARY | ~2020-02-27 | XMS | Encounter Summary ---
Demographics + + + | Address | [address] | | | [place] [address] | + + + | Home Phone | | + + + | Preferred Language | Unknown | + + + | Marital Status | Single | + + + | Holiness Affiliation | NON | + + + | Race | White | + + + | Ethnic Group | Not or | + + + Author + + + | Author | [facility] | + + + | Organization | [facility] | + + + | Address | Unknown | + + + | Phone | Unavailable | + + + Support + + + + + | Name | Relationship | Address | Phone | + + + + + | Katalina Padilla | ECON | [address] | | | | | [place], [place] | | | | | [address] | | + + + + + | Ellie Vang | ECON | Unknown | | + + + + + Care Team Providers + +------+ + | Care Sports Announcer Name | Role | Phone | + +------+ + | Fadi Goodrich DO | PCP | | + +------+ + Encounter Details +--------+------+ + + + | Date | Type | Department | Care Team | Description | +--------+------+ + + + | 03/06/ | Lab | [facility] at [facility] | | Type 2 diabetes | | 2013 | | [address] | | mellitus (HCC); | | | | [facility] | | Cholecystitis | | | | [place], [address] floor | | | | | | [place], [place] | | | | | | [address] | | | | | | [phone] | | | +--------+------+ + + + [...] [address] | | | | | | [place], [place] | | | | | | [address] | | | | | | [phone] | | | | | | | | +--------+ + + + + | 04/04/ | Telephone-S | Surgery | [facility] Cristobal, | | | 2019 | [email or web address] | | INFORMATION ASSURANCE ENGINEER [address] | | | | | | [place], [place] | | | | | | [address] | | | | | | [phone] | | | | | | | | +--------+ + + + + documented as of this encounter Procedures + +--------+ + + + | Procedure Name | Priori | Date/Time | Associated Diagnosis | Comments | | | ty | | | | + +--------+ + + + | CBC AND AUTO DIFF | Routin | 03/06/2014 | Cholecystitis | Results for this | | | e | 1:55 PM | | procedure are in the | | | | PDT | | results section. | + +--------+ + + + | CBC, WITH | Routin | 03/06/2014 | Cholecystitis | Results for this | | DIFFERENTIAL | e | 1:55 PM | | procedure are in the | | | | PDT | | results section. | + +--------+ + + + | LIVER SET | Routin | 03/06/2014 | Cholecystitis | Results for this | | (AST,ALT,BILI | e | 1:55 PM | | procedure are in the | | TOTAL,BILI | | PDT | | results section. | | DIRECT,ALK | | | | | | PHOS,ALB,PROT TOTAL) | | | | | + +--------+ + + + | HEMOGLOBIN A1C, | Routin | 03/06/2014 | Type 2 diabetes | Results for this | | BLOOD | e | 1:55 PM | mellitus (HCC) | procedure are in the | | | | PDT | | results section. | + +--------+ + + + documented in this encounter Results CBC AND AUTO DIFF (03/06/2014 1:55 PM PDT) + + + + + + | Component | Value | Ref Range | Performed | Pathologist | | | | | At | Signature | + + + + + + | WHITE CELL | 14.05 (H) | 4.40 - 11.00 | [facility] | | | COUNT | | K/cu mm | LABORATORY | | | | | | SERVICES, | | | | | | CORE | | + + + + + + | RED CELL | 4.71 | 4.00 - 5.20 | [facility] | | | COUNT | | M/cu mm | LABORATORY | | | | | | SERVICES, | | | | | | CORE | | + + + + + + | HEMOGLOBIN | 10.9 (L) | 12.0 - 16.0 | [facility] | | | | | g/dL | LABORATORY | | | | | | SERVICES, | | | | | | CORE | | + + + + + + | HEMATOCRIT | 36.3 | 36.0 - 46.0 % | [facility] | | | | | | LABORATORY | | | | | | SERVICES, | | | | | | CORE | | + + + + + + | MCV | 77.1 (L) | 80.0 - 96.0 fL | [facility] | | | | | | LABORATORY | | | | | | SERVICES, | | | | | | CORE | | + + + + + + | MCHC | 30.0 | 33.0 - 35.5 | [facility] | | | | | g/dL | LABORATORY | | | | | | SERVICES, | | | | | | CORE | | + + + + + + | RDW SD | 49.9 (H) | 35.1 - 46.3 fL | [facility] | | | | | | LABORATORY | | | | | | SERVICES, | | | | | | CORE | | + + + + + + | PLATELET | 322 | 150 - 400 K/cu | [facility] | | | COUNT | | mm | LABORATORY | | | | | | SERVICES, | | | | | | CORE | | + + + + + + | MPV | 9.9 | 9.7 - 12.3 fL | [facility] [...] + + + + | NEUTROPHIL | 60.1 | 50.0 - 70.0 % | [facility] | | | % | | | LABORATORY | | | | | | SERVICES, | | | | | | CORE | | + + + + + + | LYMPHOCYTE | 24.6 | 18.0 - 42.0 % | [facility] [...] + + + | EOS % | 7.0 (H) | 1.0 - 3.0 % | [facility] [...] + + + + | IG% | 0.6 | 0.0 - 0.6 % | [facility] | | | | | | LABORATORY | | | | | | SERVICES, | | | | | | CORE | | + + + + + + | NEUTROPHIL | 8.46 (H) | 1.80 - 7.70 | [facility] | | | # | | K/cu mm | LABORATORY | | | | | | SERVICES, | | | | | | CORE | | + + + + + + | LYMPHOCYTE | 3.45 | 1.00 - 4.80 | [facility] | | | # | | K/cu mm | LABORATORY | | | | | | SERVICES, | | | | | | CORE | | + + + + + + | MONOCYTE # | 1.00 (H) | 0.10 - 0.90 | [facility] | | | | | K/cu mm | LABORATORY | | | | | | SERVICES, | | | | | | CORE | | + + + + + + | EOS # | 0.98 (H) | 0.00 - 0.50 | [facility] | [...] + + + + | IG# | 0.08 (H) | 0.00 - 0.03 | [facility] | | | | | K/cu mm | LABORATORY | | | | | | SERVICES, | | | | | | CORE | | + + + + + + + + | Specimen | + + | Blood - Blood | + + + + + | Narrative | Performed At | + + + | Immature Granulocytes (IG) include metamyelocytes, myelocytes | [facility] | | and promyelocytes. Bands are not included in the IG count. Bands are | LABORATORY | | included in the neutrophil count. | SERVICES, CORE | + + + + + + + + | Performing | Address | City/State/Zipcode | Phone Number | | Organization | | | | + + + + + | [facility] | [address] | [place] [address] | | | SERVICES, CORE | [address] | | | + + + + + LIVER SET (AST,ALT,BILI TOTAL,BILI DIRECT,ALK PHOS,ALB,PROT TOTAL) (03/06/2014 1:55 PM PDT ) + +---------+ + + + | Component | Value | Ref Range | Performed | Pathologist | | | | | At | Signature | + +---------+ + + + | ALBUMIN, | 3.4 [...] +---------+ + + + | BILIRUBIN | <0.1 | 0.0 - 0.3 mg/dL | [facility] | | | DIRECT | | | LABORATORY | | | | | | SERVICES, | | | | | | CORE | | + +---------+ + + + | ALK PHOS | 116 (H) | 42 - 98 U/L | [facility] | | | | | | LABORATORY | | | | | | SERVICES, | | | | | | CORE | | + +---------+ + + + | AST(SGOT) | 20 | 15 - 41 U/L | [facility] | | | | | | LABORATORY | | | | | | SERVICES, | | | | | | CORE | | + +---------+ + + + | ALT (SGPT) | 25 | 12 - 60 U/L | [facility] | | | | | | LABORATORY | | | | | | SERVICES, | | | | | | CORE | | + +---------+ + + + | TOTAL | 8.0 | 6.4 - 8.2 g/dL | [facility] [...] | + +---------+ + + + | BIANCA T CMNT | No Hemo | | [facility] | | | | | | LABORATORY | | | | | | SERVICES, | | | | | | CORE | | + +---------+ + + + | BILI D CMNT | No Hemo | | [facility] [...] [facility] | [address] | [place] [address] | | | SERVICES, CORE | [address] | | | + + + + + HEMOGLOBIN A1C, BLOOD (03/06/2014 1:55 PM PDT) + + + + + + | Component | Value | Ref Range | Performed | Pathologist | | | | | At | Signature | + + + + + + | HEMOGLOBIN | 5.8 (H)Comment: Hbg A1c | <5.7 % | [facility] | | [...] | + + + + + | [facility] | [address] | [place] [address] | | | SERVICES, SPECIAL | [address] | | | | IMM + COAG | | | | + + + + + documented in this encounter Visit Diagnoses + + | Diagnosis | + + | Type 2 diabetes mellitus (HCC) Type II or unspecified type diabetes mellitus without | | mention of complication, not stated as uncontrolled | + + | Cholecystitis Cholecystitis, unspecified | + + documented in this encounter"
--- OUTSIDE RECORDS SUMMARY | ~2020-02-27 | XMS | Encounter Summary ---
Demographics + + + | Address | [address] | | | [place] [address] | + + + | Home Phone | | + + + | Preferred Language | Unknown | + + + | Marital Status | Single | + + + | Buddhism Affiliation | NON | + + + | Race | White | + + + | Ethnic Group | Not or | + + + Author + + + | Author | [facility] | + + + | Organization | [facility] | + + + | Address | Unknown | + + + | Phone | Unavailable | + + + Support + + + + + | Name | Relationship | Address | Phone | + + + + + | Katalina Padilla | ECON | [address] | | | | | [place], [place] | | | | | [address] | | + + + + + | Ellie Vang | ECON | Unknown | | + + + + + Care Team Providers + +------+ + | Care [employer] [place] 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 | | Dysphagia, | | | | [address] | | unspecified type; | | | | [facility] | | Hypertension, | | | | and Healing, | | unspecified type; | | | | [address] | | Hyperlipidemia, | | | | [place], [place] | | unspecified | | | | [address] | | hyperlipidemia type; | | | | [phone] | | Diastolic | | | | | | congestive heart | | | | | | failure, unspecified | | | | | | HF chronicity | | | | | | (HCC); | | | | | | Hypothyroidism, | | | | | | unspecified type; | | | | | | Type 2 diabetes | | | | | | mellitus treated | | | | | | without insulin | | | | | | (FORMERLY [facility]) | +--------+---------+ + + + Anesthesia Record + + + + + | Procedure Name | Responsible | Anesthesia Start | Anesthesia Stop Time | | | Anesthesiologist | Time | | + + + + + | UPPER ENDOSCOPY (N/A | Ethel Palacios | 06/23/18 1506 | 06/23/18 1551 | | Chest) | MD Gabe,PhD | | | + + + + + +----+---+ + + | Da | T | Event | Comment | | te | i | | | | | m | | | | | e | | | +----+---+ + + | 11 | 1 | Eq Check | Anesthesia machine checked Equipment verified | | /2 | 4 | | | | 8/ | 2 | | | | 20 | 0 | | | | 18 | | | | +----+---+ + + | | 1 | Pt. Check | Prior to anesthesia start, pt. Identified, examined, chart | | | 4 | | reviewed, PARQ held, anesthetic plan made or approved by | | | 2 | | attending anesthesiologist. NPO status confirmed as appropriate | | | 0 | | for procedure Preoperative evaluation: unchanged | +----+---+ + + | | 1 | Eq Check | Anesthesia machine checked Equipment verified | | | 5 | | | | | 0 | | | | | 6 | | | +----+---+ + + | | 1 | An Start | | | | 5 | | | | | 0 | | | | | 6 | | | +----+---+ + + | | 1 | An Start | | | | 5 | Data | | | | 1 | | | | | 1 | | | +----+---+ + + | | 1 | Vitals | Monitors applied Vital signs checked Patient ready for anesthesia | | | 5 | Checked | | | | 1 | | | | | 5 | | | +----+---+ + + | | 1 | ETT | | | | 5 | | | | | 1 | | | | | 9 | | | +----+---+ + + | | 1 | Ready | | | | 5 | | | | | 2 | | | | | 0 | | | +----+---+ + + | | 1 | Abx held | Not indicated for this procedure | | | 5 | Medical or | | | | 2 | Surgical | | | | 2 | Reason | | +----+---+ + + | | 1 | Timeout | | | | 5 | | | | | 2 | | | | | 4 | | | +----+---+ + + | | 1 | Incision | | | | 5 | | | | | 2 | | | | | 7 | | | +----+---+ + + | | 1 | Surgery end | | | | 5 | | | | | 3 | | | | | 6 | | | +----+---+ + + | | 1 | An Extubate | Neuromuscular function Intact. Pharynx suctioned. Patient obeys | | | 5 | | commands. Adequate pulmonary mechanics. | | | 4 | | | | | 2 | | | +----+---+ + + | | 1 | an stop | | | | 5 | data | | | | 4 | | | | | 2 | | | +----+---+ + + | | 1 | PACU Rpt | | | | 5 | Given | | | | 5 | | | | | 1 | | | +----+---+ + + | | 1 | Anesthesia | | | | 5 | End | | | | 5 | | | | | 1 | | | +----+---+ + + +------+ [...] +--------+ + + + | Wound | 01/01/17; 928; Yes; Right; | 01/01/17928 by | 08/18/191533 by | | | lydia; Other (Comment) (open | Ashley Herndon RN | Orquidea Parks RN | | | keila. area reddened. Pt reports | | | | | using goldbond medicated powder | | | | | on area); 08/18/19; 1534 | | | +--------+ + + + | Incisi | 03/01/18; 921; Dannie; Midline; | 03/01/18921 by | 08/18/19 1534 by | | on | adb- upper quadrant; 08/18/19; | Ethel Brito RN | Orquidea Parks RN | | | 1534 | | | +--------+ + + + | Incisi | 03/01/18; 923; Dannie; Right; | 03/01/18923 by | 08/18/19 1534 by | | on | adb- upper quadrant; 08/18/19; | Ethel Brito RN | Orquidea Parks RN | | | 1534 | | | +--------+ + + + | Incisi | 03/01/18; 924; Dannie; Left; | 03/01/18924 by | 08/18/19 1534 by | | on | adb- upper quadrant; 08/18/19; | Ethel Brito RN | Orquidea Parks RN | | | 1534 | | | +--------+ + + + | Incisi | 03/01/18; 0925; Dannie; Left; | 03/01/18 0925 by | 08/18/19 1534 by | | on | Lateral; adb- upper quadrant; | Ethel Brito RN | Orquidea Parks RN | | | 08/18/19; 1534 | | | +--------+ + + + | Incisi | 03/01/18; 1051; Dannie MD ; | 03/01/18 1051 by | 08/18/19 1534 by | | on | Anterior, Upper; epigastrium; | Erin Odell RN | Orquidea Parks RN | | | 08/18/19; 1534 | | | +--------+ + + + | Periph | 06/23/18; 1410; Right; Hand; 20 | 06/23/18 1410 by | 06/23/18 1800 by | | eral | g; Positive; 06/23/18; 1800 | Samanta Richards RN | Lissette Mistry, | | IV | | | RN | +--------+ + + + | ETT | 06/23/18; 1519 (created via | 06/23/18 1519 by | 06/23/18 1542 by | | | procedure documentation); | Jamel Mckinney, | Jamel Mckinney, | | | Endotracheal Tube; 7; Oral; | COAL PICKER | COAL PICKER | | | Cuffed; 06/23/18; 1542 | | | +--------+ + + + documented [...] + + + | Blood Pressure | 108/81 | 06/16/2018 4:07 PM | | | | | PST | | + + + + + | Pulse | 89 | 06/16/2018 3:28 PM | | | | | PST | | + + + + + | Temperature | 36.4 C (97.5 F) | 06/16/2018 3:28 PM | | | | | PST | | + + + + + | Respiratory Rate | 20 | 06/16/2018 3:28 PM | | | | | PST | | + + + + + | Oxygen Saturation | 95% | 06/16/2018 3:28 PM | | | | | PST | | + + + + + | Inhaled Oxygen | - | - | | | Concentration | | | | + + + + + | Weight | 146.6 kg (323 lb 3.2 | 06/16/2018 3:28 PM | | | | oz) | PST | | + + + + + | Height | 149.9 cm (4' 11") | 06/16/2018 3:28 PM | neck 41.5cm | | | | PST | | + + + + + | Body Mass Index | 65.28 | 06/16/2018 3:28 PM | | | | | PST [...] + + documented as of this encounter Patient Instructions Patient Instructions Tiara Mckeon, [employer]IVESTOCK FARMER - 06/16/2018 3:15 PM PST PREOPERATIVE INSTRUCTIONS Please consider having an influenza vaccination in the near future. There is no contraindi cation to having this done before your surgery. Empty stomach before surgery On the day [...] following medications with a sip of water: atenolol Other Important Guidelines ? Do not shave the surgical area ? Do not wear tampons on the day of the procedure Do not smoke, drink alcohol or use [...] late for your check in for surgery. ? Take a bath or shower and remember to shampoo your hair using your usual hair product bef ore your arrival at the hospital. Please remember to brush your teeth the night before and the morning of your procedure. Surgery check-in location: Admitting - [facility], ninth floor [facility] Surgery Check in Time: The Preoperative Medicine [...] deep sedation, and/or general anesthesia. If you have questions or concerns after you go home, call your doctor s office. If it is after office hours, call the [facility] welding machine operator helper gas at [phone] and ask them to page him or h er. documented in this encounter Progress Notes Tiara Mckeon FNP - 06/16/2018 3:15 PM PSTFormatting of this note might be differen t from the original. PREOPERATIVE CONSULT NOTE Author: HILDA Lagos Referring Physician: Dr Wilcox Primary Care Provider: Fadi Goodrich DO Reason for Consult: Preoperative evaluation and risk assessment Proposed Procedure/Date: UPPER ENDOSCOPY, 06/23/18 HISTORY OF PRESENT ILLNESS: Elzbieta Cristina is a 43 y.o. female here for preoperative eval uation of medical problems in anticipation of the above procedure. Pt has dx of dysphagia, S/P nilesh en Y in February, unable to swallow solids and experiencing regurgitation. Pertinent medical problems discussed during this visit: HTN on 3 agents, generally well controlled with BP < 130/80. Hyperlipidemia stabilized on statin HFpEF, managed with weight loss and diuretic tx, follows with wire stockkeeper Hypothyroidism stabilized on hormone replacement Type 2 diabetes, well controlled with A1c 6.1 Perioperative cardiac risks: CAD no CHF no CVA no CKD with creatinine >2 no DM treated with insulin no Functional Capacity: Moderate (4-10 mets) Prior complications of anesthesia: none ROS: Pulmonary: no shortness of breath no cough no stridor no wheezing no Recent Respiratory Infectio n Pt. 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 has: no active bleeding no bleeding disorder Clotting Disorders DVT, on aspirin, PE Hemoglobin Disorders anemia no malignancy Infectious Disease: MRSA (peritoneal post appendectomy 2010) no VRE Skin: no open wounds no skin conditions AutoImmune Disorders: No autoimmune disorders Current medications reviewed / updated Current Outpatient Prescriptions Medication Sig ascorbic acid (VITAMIN C) 500 mg Oral tablet Take 500 mg by mouth once daily. aspirin EC 81 mg oral tablet,delayed release (DR/EC) Take 81 mg by mouth once daily. atenolol 25 mg oral tablet Take 25 mg by mouth two times daily. buprenorphine HCl 2 mg sublingual tablet, sublingual Place under tongue once daily. CALCIUM CRB&HUG-C5-AYJ31-GENIS ORAL Take 2 tablets by mouth two times daily. cyanocobalamin (vitamin B-12) 5,000 mcg oral tablet, IR and ER, biphasic Take by mouth every thirty days. docusate sodium (STOOL SOFTENER ORAL) Take 200 mg by mouth. ergocalciferol (VITAMIN D2) 50,000 unit oral capsule Take 1 capsule by mouth every lucía n days. FA/mv,Ca,iron,min/lycopene/lut (MULTIVITAL ORAL) Take by mouth. Ferrous Gluconate 324 mg total salt (38 mg elemental iron) oral tablet Take 1 tablet by mouth three times daily. gabapentin 300 mg oral capsule Take 300 mg by mouth four times daily. hydrOXYzine pamoate 25 mg oral capsule Take 25 mg by mouth every four hours as needed. Lactobac 40/Bifido 3/S.thermop (PROBIOTIC ORAL) Take by mouth. magnesium oxide 400 mg oral tablet Take 400 mg by mouth once daily. metFORMIN 1,000 mg oral tablet See directions below OLANZapine 15 mg oral tablet Take 30 mg by mouth once daily at bedtime. PARoxetine 10 mg oral tablet Take 20 mg by mouth once daily. phentermine 37.5 mg oral tablet Take 1 tablet by mouth once daily in the morning. Admin ister before breakfast. piroxicam 10 mg oral capsule Take 10 mg by mouth once daily. promethazine 25 mg oral tablet Take 0.5 tablets by mouth four times daily as needed for nausea/vomiting. Indications: Post-Operative Nausea and Vomiting spironolactone 50 mg oral tablet Take 50 mg by mouth once daily. thyroid (ARMOUR THYROID) 30 mg oral tablet tab Take 30 mg by mouth once daily. torsemide 100 mg oral tablet Take 100 mg by mouth two times daily. Resume half dose for first week post opertative traZODone 150 mg Oral tablet Take 150 mg by mouth once daily at bedtime. Level of confidence in medication reconciliation accuracy: Medium Allergies reviewed / updated Allergies Allergen Reactions Amoxicillin Benadrilina [Diphenhydramine Hcl] Hives Parlodel [Bromocriptine] Unknown Blood clots Penicillin Hives Past medical history reviewed / updated Past Medical History: Diagnosis Date Abdominal pain Abnormal ThinPrep Pap test of vagina Allergic rhinitis Anemia Anxiety Bipolar disorder ([facility]) Chronic wound infection of abdomen from 2010 Cough Depression Diverticulitis of colon Dizziness Glaucoma Heart burn Hemorrhoids Hernia of abdominal wall Incisional hernia, incarcerated 2012 Insomnia Irregular periods Kidney stone Leaking of urine Leg sore Lymphedema Morbid obesity with body mass index of 70 and over in adult ([facility]) Myalgia and myositis Nausea Neck pain Numbness Osteoarthritis of knee Palpitations Pneumonia Shortness of breath Staphylococcal infection Stroke ([facility]) TIA (transient ischemic attack) due to Bromocriptine [...] Dr. Andie Brian Incisional hernia repair 03/01/2015 [facility]/ Dr. Cantu. Primary fascial closure and scar excision Lap gastric byp, and nilesh-en-y gastroenterostomy w/ nilesh limb 150 cm or less 8 [facility] Family history reviewed / updated Family History [...] use No PHYSICAL EXAM: Last Vitals: BP 108/81 | Pulse 89 | Temp (Src) 36.4 C (97.5 F) (Oral) | RR 20 | Ht 1.49 9 m (4' 11") | Wt 146.6 kg (323 lb 3.2 oz) | SpO2 95% | LMP 06/11/2018 | BMI 65.28 kg/(m^2) Body mass index is 65.28 kg/m. General: Appearance: Healthy, Age appropriate and No distress LOC: Alert HEENT: Normocephalic/Atraumatic, Normal sclerae/conjunctivae, PERRL, EOMI and No thyromegaly Airway: Dentition: dentition is normal missing teeth Date of last Dental Exam: 41.5 Mallampati: 2 M outh Opening: > 3 cm TM Distance:> 6 cm C-Spine ROM: Normal Neck Anatomy: Normal Jaw Protrusion: Normal (lower incisors go above upper incisors) Pulmonary: Respiratory: pulmonary exam normal Breath Sounds: breath sounds normal Cardiovascular: Rhythm: Regular Rate: Normal Cardiovascular comments: No M/G/R; no pedal edema Abdomen: General: Normal Body Habitus: normal obesity Musculoskeletal: Range of Motion: Normal range of motion Musculoskeletal Comments: No obvious deformities n oted. Neuro/Psych: Affect: Normal Cognitive Status: Normal Speech: Normal speech Strength: Normal Muscle Tone: Normal Movement: Normal Gait Station: Normal Cranial Nerves: Normal Sensation: Normal to light touch Comments: No obvious neurologic deficits noted Skin: Color: skin color normal Texture: Normal Turgor: turgor normal Temperature: Warm Other Implanted Devices: Implanted devices: Other Implanted Devices hardware ankle, right LABS & DATA REVIEWED/ORDERED Lab Results Component Value Date WBC 12.50 05/27/2018 HB 16.3 05/27/2018 HCT 50.4 05/27/2018 PLT 318 05/27/2018 MCV 83.3 05/27/2018 RDW 43.5 05/27/2018 Lab Results Component Value Date NA 140 05/27/2018 K 3.0 05/27/2018 CL 102 05/27/2018 BICARB 27 05/27/2018 BUN 11 05/27/2018 CR 0.85 05/27/2018 GLU 123 05/27/2018 CA 9.7 05/27/2018 AST 34 05/27/2018 ALT 36 05/27/2018 AP 128 05/27/2018 TBILI 0.6 05/27/2018 TP 8.5 05/27/2018 ALB 3.2 05/27/2018 Lab Results Component Value Date ABO A 02/22/2018 RH Positive 02/22/2018 Lab Results Component Value Date A1C 6.1 (H) 05/27/2018 EKG: Not needed Perioperative risk calculators 2014 ACC/AHA Perioperative Cardiac [...] ASA class 3 Other perioperative risk calculators: Not Applicable ASSESSMENT and RECOMMENDATIONS: Perioperative risk assessment: Elzbieta Cristina is a 43 y.o. female with diagnosis of difficulty swallowing, scheduled for EGD. Based on the clinical information obtained and re viewed during this visit, the overall assessment is that the patient is having elective surg eileen with identified risk factors. see below. The patient is stable / optimized for surgery . Additional testing/optimization is not needed. Medication management recommendations: The patient was advised to continue all usual med ications except as noted in Patient Instructions (After Visit Summary given to pt) HTN on 3 agents, generally well controlled with BP < 130/80. Take atenolol on DOS Hyperlipidemia stabilized on statin. Continue periop as usual HFpEF, managed with weight loss and diuretic tx, follows with wire stockkeeper. Appears comp ensated today. Hypothyroidism stabilized on hormone replacement. Take on DOS as usual Type 2 diabetes, well controlled with A1c 6.1 Thank you for the opportunity to contribute to this patient's care. HILDA Lagos [facility] 4TH FLOOR [address] [place] [address] I advised the patient regarding NPO requirements, hydration before surgery, showering, ge neral body hygiene. All pre-procedure instructions given to the patient (after-visit summar y). All of patient's questions were addressed. The patient verbalized understanding of the instructions given. Kat Damon in this encounter Plan of Treatment +--------+ + + + + | Date | Type | Specialty | Care Team | Description | +--------+ + + + + | 03/22/ | Office | Cardiology | Randell Franks, | | | 2019 | Visit | | MD [address] | | | | | | [facility] [place] | | | | | | [address] | | | | | | [phone] | | | | | | | | +--------+ + + + + | 04/04/ | Telephone-S | Surgery | Orquidea Cristobal, | | | 2019 | [facility] | LIVESTOCK FARMER [address] | | | | | | [place], [place] | | | | | | [address] | | | | | | [phone] | | | | | | | | +--------+ + + + + documented as of this encounter Visit Diagnoses + + | Diagnosis | + + | Preop examination - Primary Preoperative examination, unspecified | + + | Dysphagia, unspecified type | + + | Hypertension, unspecified type | + + | Hyperlipidemia, unspecified hyperlipidemia type | + + | Diastolic congestive heart failure, unspecified HF chronicity (HCC) | + + | Hypothyroidism, unspecified type | + + | Type 2 diabetes mellitus treated without insulin (HCC) | + + documented in this encounter
--- OUTSIDE RECORDS SUMMARY | ~2020-02-27 | XMS | Encounter Summary ---
Demographics + + + | Address | [address] | | | [place] [address] | + + + | Home Phone | | + + + | Preferred Language | Unknown | + + + | Marital Status | Single | + + + | Latter Day Affiliation | NON | + + + [...] + | Katalina Padilla | ECON | [address] | | | | | [place], [place] | | | | | [address] | | + + + + + | Ellie Vang | ECON | Unknown | | + + + + + Care Team Providers + +------+ + | Care Residential Roofer Helper Name | Role | Phone | + +------+ + | Fadi Goodrich DO | PCP | | + +------+ + Reason for Visit Office Visit - E/M Services (Routine) +--------+--------+ + + + + | Status | Reason | Specialty | Diagnoses / | Referred By | Referred To | | | | | Procedures | Contact | Contact | +--------+--------+ + + + + | Closed | | Cardiology | Diagnoses | Conser, | Tiny, | | | | | Unspecified | Kathy Feliciano WAREHOUSE TEAM LEADER | MD Randell | | | | | essential | [address] | [address] | | | | | hypertension | [address], | [address] | | | | | Type II or | [address] | [place], [place] | | | | | unspecified | [place], [place] | [address] | | | | | type | [address] | Phone: | | | | | diabetes | Phone: | [phone] | | | | | mellitus | [phone] | Fax: | | | | | without | Fax: | [phone] | | | | | mention of | [phone] | | | | | | complication | | | | | | | , not stated | | | | | | | as | | | | | | | uncontrolled | | | | | | | Morbid | | | | | | | obesity | | | | | | | (HCC) | | | | | | | Procedures | | | | | | | CONSULT TO | | | | | | | CARDIOLOGY | | | +--------+--------+ + + + + Encounter Details +--------+---------+ + + + | Date | Type | Department | Care Team | Description | +--------+---------+ + + + | 08/28/ | Office | Cardiology | Randell Franks, | Type 2 diabetes | | 2015 | Visit | Preventive at [facility] | MD [address] | mellitus (HCC) | | | | [address] | [facility] [place] | (Primary Dx) | | | | [facility] | [address] | | | | | and Healing, | [phone] | | | | | [address] | | | | | | [place], [place] | | | | | | [address] | | | | | | [phone] | | | +--------+---------+ + + + [...] + + + | Blood Pressure | 135/80 | 08/28/2014 10:24 AM | | | | | PST | | + + + + + | Pulse | 107 | 08/28/2014 10:24 AM | | | | | PST | | + + + + + | Temperature | 36.4 C (97.5 F) | 08/28/2014 10:24 AM | | | | | PST | | + + + + + | Respiratory Rate | - | - | | + + + + + | Oxygen Saturation | 95% | 08/28/2014 10:24 AM | | | | | PST | | + + + + + | Inhaled Oxygen | - | - | | | Concentration | | | | + + + + + | Weight | 181.4 kg (400 lb) | 08/28/2014 10:24 AM | | | | | PST | | + + + + + | Height | 154.9 cm (5' 1") | 08/28/2014 10:24 AM | | | | | PST | | + + + + + | Body Mass Index | 75.58 | 08/28/2014 10:24 AM | | | | | PST | | + + + + + documented in this encounter Progress Notes Randell Franks MD - 08/28/2014 10:51 AM PSTFormatting of this note might be different f rom the original. Reason for visit: Follow-up T2DM PCP: Fadi Goodrich DO Patient Active Problem List Diagnosis Hernia Morbid obesity Type 2 diabetes mellitus AMARA (obstructive sleep apnea) Edema GERD (gastroesophageal reflux disease) Vitamin D deficiency disease Intertriginous candidiasis HTN (hypertension) Skin breakdown Anemia Decreased mobility Hypoventilation associated with obesity PCOS (polycystic ovarian syndrome) Ventral hernia Migraine headache Abdominal pain Hypothyroidism Medications: Current Outpatient Prescriptions Medication Sig acetaminophen 325 mg oral tablet Take 2 tablets by mouth every six hours. ALPRAZolam XR 3 mg Oral tablet extended release 24 hr Take 3 mg by mouth once daily in the morning. ascorbic acid (VITAMIN C) 500 mg Oral tablet Take 500 mg by mouth once daily. ergocalciferol (VITAMIN D2) 50,000 unit oral capsule Take 50,000 Units by mouth twice w toribio (on Thursday and ). FLUoxetine 40 mg Oral capsule Take 40 mg by mouth once daily. HUM INSULIN NPH/REG INSULIN HM (HUMULIN 70/30 SUBQ) Inject 50 cc under the skin (SUBC) once daily. HYDROmorphone 2 mg oral tablet Take 1 to 3 tablets by mouth every four hours as needed for moderate pain or severe pain. metFORMIN 1,000 mg Oral tablet Take 1,000 mg by mouth once daily. OLANZAPINE (ZYPREXA ORAL) Take 30 mg by mouth once daily. oxyCODONE, immediate release, 5 mg oral tablet Take 1 to 2 tablets by mouth every four hours as needed for severe pain. phentermine 37.5 mg oral tablet Take 1 tablet by mouth once daily in the morning. Admin ister before breakfast. piroxicam 20 mg Oral capsule Take 20 mg by mouth once daily. ranitidine 300 mg Oral tablet Take 300 mg by mouth once daily at bedtime. senna-docusate 8.6-50 mg Oral tablet Take 1 Tab by mouth two times daily. thyroid (ARMOUR THYROID) 30 mg oral tablet tab Take 30 mg by mouth once daily. topiramate (TOPAMAX) 100 mg oral tablet Take 1 tablet by mouth two times daily. TORSEMIDE ORAL Take 40 mg by mouth two times daily. traZODone 150 mg Oral tablet Take 150 mg by mouth once daily at bedtime. No current facility-administered medications for this visit. S: Elzbieta is a 38 y.o. female here for follow-up of obesity and T2DM. Since I saw Ms. Livia singh last, continues on phentermine and 100 mg topiramate BID with good appetite suppression an d no side effects. She is now fully recovered from her cholecystectomy in January 2014. She h as been advised to lose "another 25 lbs" but despite her recent liquid diet of 1000 calories , she has been able to maintain her 100 lb weight loss but not realize any more. She reports 2 days of cough, sore throat, neck pain, and fevers. Her CBG's "are good", ran ging in the 100's. Weight: stable from last visit Diet: appetite poor right now, little intake, in association with her recent illness Exercise: "I walk everywhere." ROS: No CP, SOB. O: vitals BP 135/80 | Pulse 107 | Temp (Src) 36.4 C (97.5 F) (Oral) | Ht 1.549 m (5' 1" ) | Wt 181.439 kg (400 lb) | SpO2 95% | BMI 75.62 kg/(m^2) Gen: pleasant, NAD HEENT: Throat red, no exudates or lesions. Neck: Tender to palpation of ant margins, but not masses Abd: Massive panniculus. Lungs: clear to A Heart: reg, no MRG Ext: 3 to 4 + non-pitting edema Labs: None new to review. Assessment: 1) T2 Diabetes: Under good control by report. Will check her A1c today and continue present management, monitor glucose control. 2) Morbid obesity: Weight now stable at ~ 100 lbs below her lifetime max while on phentermi ne and topiramate. I strongly advocate that she proceed with RYGBP as she has no more medic al treatment options and she has been adherent with low-calorie weight loss attempts for 6 m onths. 3) Hypothyroidism: Will check her TSH Plan: 1) Continue healthy eating, be as active as she can be, phentermine and topiramate 2) Check A1c, TSH 3) Advocate for moving forward with RYGBP. 4) F/U 4- month, check A1c at that time.Electronically signed by Randell Franks MD at 0 08/28/2014 11:02 AM Rody Bailey MA - 08/28/2014 10:24 AM PSTWC: 67.5 InchesElectronic ally signed by Rody Elliott MA at 08/28/2014 11:02 AM PSTdocumented in this encounter Plan of Treatment +--------+ + + + + | Date | Type | Specialty | Care Team | Description | +--------+ + + + + | 03/22/ | Office | Cardiology | Randell Franks, | | | 2019 | Visit | | MD [address] | | | | | | [place], [place] | | | | | | [address] | | | | | | [phone] | | | | | | | | +--------+ + + + + | 04/04/ | Telephone-S | Surgery | Orquidea Cristobal, | | | 2019 | cheduled | | AIRCRAFT ENGINE SPECIALIST [address] | | | | | | [place], [place] | | | | | | [address] | | | | | | [phone] | | | | | | | | +--------+ + + + + documented as of this encounter Results TSH (08/28/2014 11:11 AM PST) + +-------+ + + + | Component | Value | Ref Range | Performed | Pathologist | | | | | At | Signature | + +-------+ + + + | TSH | 2.05 | 0.39 - 4.17 | [facility] | | | | | [...] + + + + + | [facility] | [address] | [place] [address] | | | SERVICES, CORE | [address] | | | + + + + + HEMOGLOBIN A1C, BLOOD (08/28/2014 11:11 AM PST) + + + + + + | Component | Value | Ref Range | Performed | Pathologist | | | | | At | Signature | + + + + + + | HEMOGLOBIN | 5.3Comment: Hbg A1c | <5.7 % | [facility] [...] | + + + + + | [facility] | [address] | [place] [address] | | | SERVICES, SPECIAL | [address] | | | | IMM + COAG | | | | + + + + + documented in this encounter Visit Diagnoses + + | Diagnosis | + + | Type 2 diabetes mellitus (HCC) - Primary Type II or unspecified type diabetes | | mellitus without mention of complication, not stated as uncontrolled | + + documented in this encounter
--- OUTSIDE RECORDS SUMMARY | ~2020-02-27 | XMS | Encounter Summary ---
Demographics + + + | Address | [address] | | | [place] [address] | + + + | Home Phone [...] + | Katalina Padilla | ECON | [address] | | | | | [place], [place] | | | | | [address] | | + + + + + | Ellie Vang | ECON | Unknown | | + + + + + Care Team Providers + +------+ + | Care Ethanol Operations Manager Name | Role | Phone | + +------+ + | Kenyatta Cardenas MD | PCP | | + +------+ + Encounter Details +--------+ + + + + | Date | Type | Department | Care Team | Description | +--------+ + + + + | 03/02/ | Extractor Operator | Digestive Health | Keren Allen, | | | 2019 | | Center at [facility] [address] | AGACNP [address] | | | | | [address] | [address] [facility] [place] | | | | | for Health and | [address] | | | | | Healing, [facility] [address] | | | | | | [place], [place] | | | | | | [address] | | | | | | | [...] | 2020 | Visit | | [address] | | | | | | [place], [place] | | | | | | [address] | | | | | | [phone] | | | | | | | | +--------+ + + + + | 04/04/ | Telephone-S | Surgery | Orquidea Cristobal, | | | 2020 | abrahamled | | PERSONNEL CLERK [address] | | | | | | [place], [place] | | | | | | [address] | | | | | | [phone] | | | | | | | | +--------+ + + + + documented as of this encounter Visit Diagnoses Not on filedocumented in this encounter"
--- OUTSIDE RECORDS SUMMARY | ~2020-02-27 | XMS | Encounter Summary ---
Demographics + + + | Address | [address] | | | [place] [address] | + + + | Home Phone | | + + + | Preferred Language | Unknown | + + + | Marital Status | Single | + + + | Restoration Affiliation | NON | + + + [...] + | Katalina Padilla | ECON | [address] | | | | | [place], [place] | | | | | [address] | | + + + + + | Ellie Vang | ECON | Unknown | | + + + + + Care Team Providers + +------+ + | Care Feed Adviser Name | Role | Phone | + +------+ + | Fadi Goodrich DO | PCP | | + +------+ + Reason for Visit +--------+ + | Reason | Comments | +--------+ + | Hernia | Incarcerated Incisional Hernia | +--------+ + AUTH/CERT +--------+--------+ + + + + | Status | Reason | Specialty | Diagnoses / | Referred By | Referred To | | | | | Procedures | Contact | Contact | +--------+--------+ + + + + | Closed | | | | | | +--------+--------+ + + + + Encounter Details +--------+---------+ + + + | Date | Type | Department | Care Team | Description | +--------+---------+ + + + | 03/01/ | Surgery | [address]A [address] Op [id number] | Shahid Cantu, | INCISIONAL HERNIA | | 2014 | | [address] | [address] | REPAIR | | | | [facility] | [address] | | | | | Hospital Admitting | [place], [place] | | | | | Des Located on the | [address] | | | | | 9th floor | [phone] | | | | | [place], [place] | | | | | | [address] | | | +--------+---------+ + + + [...] + + + | Blood Pressure | 139/67 | 03/03/2015 8:37 AM | | | | | PDT | | + + + + + | Pulse | 98 | 03/03/2015 8:37 AM | | | | | PDT | | + + + + + | Temperature | 36.4 C (97.5 F) | 03/03/2015 8:37 AM | | | | | PDT | | + + + + + | Respiratory Rate | 18 | 03/03/2015 8:37 AM | | | | | PDT | | + + + + + | Oxygen Saturation | 93% | 03/03/2015 8:37 AM | | | | | PDT | | + + + + + | Inhaled Oxygen | - | - | | | Concentration | | | | + + + + + | Weight | 170.4 kg (375 lb | 2015 8:13 PM | | | | 10.6 oz) | PDT | | + + + + + | Height | 154.9 cm (5' 1") | 2015 8:13 PM | Patient reported | | | | PDT | | + + + + + | Body Mass Index | 70.98 | 2015 8:13 PM | | | | | PDT | | + + + + + documented in this encounter Discharge Summaries Gabo Langston MD - 03/21/2015 12:15 PM PDTAddendum to discharge summary: Patient is scheduled for follow up on 04/09 at clinic Gabo Griffith MD - 03/06/2015 1:36 PM PDTFormatt ing of this note might be different from the original. INPATIENT PHYSICIAN DISCHARGE SUMMARY: The Department of Surgery Author: Gabo Langston MD R-1 Admitting Physician: Dr. Carrillo 03/03/2015, 1:36 PM Admission Diagnosis: incisional hernia Admission Date: 2015 Discharge Date: 03 Mar 2015 Diagnoses Principal Final Diagnosis: 1. Incisional hernia Additional Diagnoses: Procedures 1. Primary incisional hernia repair and scar revision Brief Hospital Course Mrs. Romero is a 40 yo F with an incisional hernia at a surgery port site who was transferre d to [facility] for concern of an incarcerated hernia. On presentation she did have worsening abd ominal pain, nausea, and vomiting. She was taken to the OR and had an incisional hernia repa ir on 03/01 without complication. At the time of discharge she was tolerating a regular diet, pain was controlled, and she voiding without difficulty. Hospital Course: Medications: Discharge Medication List as of 03/03/2015 10:34 AM START taking these medications Details oxyCODONE, immediate release, 5 mg oral tablet Take 1 to 3 tablets by mouth every four hour s as needed for severe pain., Disp-60 tablet, R-0, Print Prescription polyethylene glycol 17 gram/dose oral powder Take 17 g by mouth once daily as needed (for n o BM for 2 days)., Disp-255 g, R-1, Print Prescription CONTINUE these medications which have NOT CHANGED Details ALPRAZolam 1 mg oral tablet Take 1 mg by mouth three times daily as needed for anxiety., Hi storical Med ascorbic acid (VITAMIN C) 500 mg Oral tablet Take 500 mg by mouth once daily. , Historical Med CALCIUM [id number] ORAL Take 1 tablet by mouth two times daily., Historical Med ergocalciferol (VITAMIN D2) 50,000 unit oral capsule Take 50,000 Units by mouth twice weekl y (on Thursday and )., Historical Med FLUoxetine 40 mg Oral capsule Take 40 mg by mouth once daily. , Historical Med HUM INSULIN NPH/REG INSULIN HM (HUMULIN 70/30 SUBQ) Inject 50 cc under the skin (SUBC) once daily. , Historical Med magnesium oxide 400 mg oral tablet Take 400 mg by mouth once daily., Historical Med metFORMIN 1,000 mg Oral tablet Take 1,000 mg by mouth once daily. , Historical Med OLANZAPINE (ZYPREXA ORAL) Take 30 mg by mouth once daily. , Historical Med phentermine 37.5 mg oral tablet Take 1 tablet by mouth once daily in the morning. Administe r before breakfast., Disp-90 tablet, R-1, Requires Phone In piroxicam 20 mg Oral capsule Take 20 mg by mouth once daily. , Historical Med potassium chloride SR 10 mEq oral tablet,ER particles/crystals Take 10 mEq by mouth once da mireya., Historical Med pseudoephedrine 60 mg oral tablet Take 120 mg by mouth two times daily., Historical Med ranitidine 300 mg Oral tablet Take 300 mg by mouth once daily at bedtime. , Historical Med senna-docusate 8.6-50 mg Oral tablet Take 1 Tab by mouth two times daily., Disp-60 Tab, R-3 , Print Prescription thyroid (ARMOUR THYROID) 30 mg oral tablet tab Take 30 mg by mouth once daily., Historical Med topiramate (TOPAMAX) 100 mg oral tablet Take 1 tablet by mouth two times daily., Disp-180 t ablet, R-3, eRx TORSEMIDE ORAL Take 40 mg by mouth two times daily. , Historical Med traZODone 150 mg Oral tablet Take 150 mg by mouth once daily at bedtime. , Historical Med STOP taking these medications oxyCODONE-acetaminophen 5-325 mg oral tablet Comments: Reason for Stopping: Future Appointments Provider Department Dept Phone Center 04/03/2015 10:40 AM Randell Franks Cardiology Preventive at [facility] [phone] Cardiology 04/09/2015 1:00 PM Egs Ppv Tra Trauma Emergency General Surgery at [facility] [phone] [facility] Outstanding labs/studies: None Discharging Physician: GABO ALNGSTON MD Attending Physician: Dr. Cantu PCP: Fadi Goodrich DO Signed: GABO LANGSTON MD Pager #[phone] Surgical Palliative Medicine Physician [facility] Associated attestation - Tye Carrillo DO - 03/12/2015 9:12 AM PDTAttending: I discussed this patient with the resident and agree with the assessment and plan as outlin ed in this note and participated in the planning of care. Tye Carrillo DO, SIDRA, FACS Division of Trauma, Critical Care & Acute Care Surgery [facility] [phone] documented in this encounter Medications at Time of Discharge + + + +---------+--------+ + | Medication | Sig | Dispensed | Refills | Start | End Date | | | | | | Date | | + + + +---------+--------+ + | CALCIUM | Take 2 tablets by | | 0 | | | | [id number] | mouth two times | | | | | | IS ORAL | daily. | | | | | + + + +---------+--------+ + | magnesium oxide | Take 400 mg by mouth | | 0 | | | | 400 mg oral tablet | two times daily. | | | | | + + + +---------+--------+ + documented as of this encounter Progress Notes Gabo Langston MD - 03/03/2015 11:24 AM PDTFormatting of this note might be differ ent from the original. [facility] DEPARTMENT OF SURGERY EMERGENCY GENERAL SURGERY Division of Trauma and Critical Care Attending Physician: Shahid Cantu MD Progress Note Note Date: 03/03/2015 Admission Date: 2015 DYLAN ROMERO, Hospital Day #4 40 F PMH morbid obesity (BMI 71 today), DM2, depression, GERD, h/o stroke at age 18, and kn own ventral hernias s/p hernia repair. INTERVAL HISTORY and SUBJECTIVE: - having post-surgical pain - passing flatus and having BM's and urinating well - slept well - complaining of a cough REVIEW OF SYSTEMS: Pain: well managed Flatus: YES Tolerating diet: Yes Nausea/Vomiting: None Bowel movement: YES Sleep: YES Progressing with Physical Therapy YES OBJECTIVE: PHYSICAL EXAM: LAST VITALS: BP 139/67 | Pulse 98 | Temp 36.4 C (97.5 F) | RR 18 | Ht 1.549 m (5' 1") | Wt 170.4 kg (375 lb 10.6 oz) | SpO2 93% | BMI 71.02 kg/(m^2) 24 Hour Vital Min/Max: Systolic (24hrs), Av mmHg, Min:120 mmHg, Max:156 mmHg Diastoli c (24hrs), Av mmHg, Min:64 mmHg, Max:76 mmHg GENERAL: morbid obese female, pleasant, resting comfortably in bed NEURO: awake, alert, and oriented x 3 LUNGS: anterior coley CTA bilaterally CV: RRR ABDOMEN: obese, non tender and soft with active BS, incision covered, no sign of saturation : ruiz out, patient voiding without difficulty Extremities: warm and well perfused Patients Hospital Problem List: Active Hospital Problems * No active hospital problems. * ASSESSMENT, MEDICAL DECISION MAKING AND PLAN: DYLAN ROMERO- 40 y.o. y/o female admitted on 2015 7:00 PM and hospital day 4 with following current issues. 40 F PMH morbid obesity with known ventral hernias transferred to [facility] for surgical managem ent of ventral hernia, now s/p repair. Post surgical pain: -patient ready for d/c, discussed f/u. Patient lives far away and has other appointments at [facility]. Will attempt to coordinate appointments. Discharge Plan: D/c today GABO LANGSTON MD Pager #[phone] Surgical Palliative Medicine Physician [facility] Salomón William Md - 03/02/2015 1:12 PM PDT [facility] DEPARTMENT OF SURGERY EMERGENCY GENERAL SURGERY Division of Trauma and Critical Care Attending Physician: Shahid Cantu MD Progress Note Note Date: 03/02/2015 Admission Date: 2015 DYLAN ROMERO, Hospital Day #2 40 F PMH morbid obesity (BMI 71 today), DM2, depression, GERD, h/o stroke at age 18, and kn own ventral hernias transferred to [facility] for surgical treatment of suspected incarcerated yuriy tral hernia. INTERVAL HISTORY and SUBJECTIVE: - having post-surgical pain - passing flatus and having BM's and urinating well - slept well REVIEW OF SYSTEMS: Pain: continues having post op pain Flatus: YES Tolerating diet: Yes Nausea/Vomiting: None Bowel movement: YES Sleep: YES Progressing with Physical Therapy YES OBJECTIVE: PHYSICAL EXAM: LAST VITALS: BP 142/68 | Pulse 98 | Temp 36.7 C (98.1 F) | RR 20 | Ht 1.549 m (5' 1") | Wt 170.4 kg (375 lb 10.6 oz) | SpO2 94% | BMI 71.02 kg/(m^2) 24 Hour Vital Min/Max: Systolic (24hrs), Av mmHg, Min:105 mmHg, Max:142 mmHg Diastoli c (24hrs), Av mmHg, Min:52 mmHg, Max:103 mmHg GENERAL: morbid obese female, pleasant, resting comfortably in bed NEURO: awake, alert, and oriented x 3 LUNGS: anterior coley CTA bilaterally CV: RRR ABDOMEN: obese, non tender and soft with active BS : ruiz out, patient voiding without difficulty Extremities: warm and well perfused Patients Hospital Problem List: Active Hospital Problems * No active hospital problems. * ASSESSMENT, MEDICAL DECISION MAKING AND PLAN: DYLAN ROMERO- 40 y.o. y/o female admitted on 2015 7:00 PM and hospital day 2 with following current issues. 40 F PMH morbid obesity with known ventral hernias transferred to [facility] for surgical managem ent of ventral hernia, now s/p repair POD 1. S/p hernia repair: - bowel regimen - d/c MIVF, encourage good PO Post surgical pain: - 1 dose toradol 30, then initiate oral motrin - initiate home regimen of oxycodone-acetaminophen - IV dilaudid prn Discharge Plan: [place] today for pain control. d/c home with sister tomorrow who will be robel ing her home to [place], [place]. CALVIN ROMERO MD PGY-1 Anesthesiology Pager: [phone] [facility] [address] [facility] [address] Karthik Oneill MD - 03/02/2015 8:26 AM [id number] Calvin William Md - 03/01/2015 5:34 PM PDT Brief Post Operative Note: 40 F PMH morbid obesity (BMI 71 today), DM2, depression, GERD, h/o stroke at age 18, and kn own ventral hernias transferred to [facility] for surgical treatment of incarcerated ventral herni a, now s/p repair POD 0. Subjective: Pt sleeping, but awoke and had no complaints except for mild pain. She is also ready to eat . Objective: Last 24 hour min/max Temp: 36.7 C (98.1 F) Temp Min: 36.4 C (97.5 F) Max: 36.8 C (98.2 F) Pulse: 81 Pulse Min: 78 Max: 99 Resp: 22 Resp Min: 16 Max: 23 BP: 128/67 mmHg BP Min: 105/69 Max: 144/58 SpO2: 97 % SpO2 Min: 93 % Max: 100 % Body mass index is 71.02 kg/(m^2). Intake/Output Summary (Last 24 hours) at 03/01/15 1738 Last data filed at 03/01/15 1400 Gross per 24 hour Intake 2752 ml Output 2295 ml Net 457 ml General: morbid obese female resting in bed comfortably Neuro: AAOx3 Respiratory: CTA bilaterally CV: RRR : FC in place Extremities: warm and well perfused Assessment and Plan: 40 F s/p repair of midline incisional hernia POD 0: - continue MIVF until good PO - ADAT diabetic diet - d/c ruiz - add tylenol, oxy and dilaudid prn for pain control CALVIN ROMERO MD PGY-1 Anesthesiology Pager: [phone] signed by Calvin Romero Md at 03/01/2015 5:41 PM PDTdocumente d in this encounter Plan of Treatment +--------+ + + + + | Date | Type | Specialty | Care Team | Description | +--------+ + + + + | 03/22/ | Office | Cardiology | Randell Franks, | | | 2019 | Visit | | MD [address] | | | | | | [place], [place] | | | | | | [address] | | | | | | [phone] | | | | | | | | +--------+ + + + + | 04/04/ | Telephone-S | Surgery | Orquidea Cristobal, | | | 2019 | cheduled | | POWERHOUSE OPERATOR [address] | | | | | | [place], [place] | | | | | | [address] | | | | | | [phone] | | | | | | | | +--------+ + + + + documented as of this encounter Procedures + +--------+ + + + | Procedure Name | Priori | Date/Time | Associated Diagnosis | Comments | | | ty | | | | + +--------+ + + + | PROCEDURE NOTE | Routin | 08/30/2015 | | Results for this | | | e | 1:03 PM | | procedure are in the | | | | PST | | results section. | + +--------+ + + + | OPERATION RECORD | | 03/05/2015 | | Results for this | | | | 10:25 AM | | procedure are in the | | | | PDT | | results section. | + +--------+ + + + | CAPILLARY BLOOD | Routin | 03/03/2015 | Ventral hernia, | Results for this | | GLUCOSE (NO CHG), | e | 12:15 PM | recurrence not | procedure are in the | | POC | | PDT | specified | results section. | + +--------+ + + + | CAPILLARY BLOOD | Routin | 03/03/2015 | Ventral hernia, | Results for this | | GLUCOSE (NO CHG), | e | 7:28 AM | recurrence not | procedure are in the | | POC | | PDT | specified | results section. | + +--------+ + + + | CAPILLARY BLOOD | Routin | 03/02/2015 | Ventral hernia, | Results for this | | GLUCOSE (NO CHG), | e | 9:30 PM | recurrence not | procedure are in the | | POC | | PDT | specified | results section. | + +--------+ + + + | CAPILLARY BLOOD | Routin | 03/02/2015 | Ventral hernia, | Results for this | | GLUCOSE (NO CHG), | e | 6:54 PM | recurrence not | procedure are in the | | POC | | PDT | specified | results section. | + +--------+ + + + | CAPILLARY BLOOD | Routin | 03/02/2015 | Ventral hernia, | Results for this | | GLUCOSE (NO CHG), | e | 12:05 PM | recurrence not | procedure are in the | | POC | | PDT | specified | results section. | + +--------+ + + + | CAPILLARY BLOOD | Routin | 03/02/2015 | Ventral hernia, | Results for this | | GLUCOSE (NO CHG), | e | 8:19 AM | recurrence not | procedure are in the | | POC | | PDT | specified | results section. | + +--------+ + + + | CBC (HEMOGRAM) ONLY | Routin | 03/02/2015 | | Results for this | | | e | 5:44 AM | | procedure are in the | | | | PDT | | results section. | + +--------+ + + + | BASIC METABOLIC SET | Routin | 03/02/2015 | | Results for this | | (NA, K, CL, TCO2, | e | 5:44 AM | | procedure are in the | | BUN, CR, GLU, CA) | | PDT | | results section. | + +--------+ + + + | CBC ONLY | Routin | 03/02/2015 | | Results for this | | | e | 5:44 AM | | procedure are in the | | | | PDT | | results section. | + +--------+ + + + | CAPILLARY BLOOD | Routin | 03/01/2015 | Ventral hernia, | Results for this | | GLUCOSE (NO CHG), | e | 10:37 PM | recurrence not | procedure are in the | | POC | | PDT | specified | results section. | + +--------+ + + + | CAPILLARY BLOOD | Routin | 03/01/2015 | Ventral hernia, | Results for this | | GLUCOSE (NO CHG), | e | 6:20 PM | recurrence not | procedure are in the | | POC | | PDT | specified | results section. | + +--------+ + + + | CAPILLARY BLOOD | Routin | 03/01/2015 | Ventral hernia, | Results for this | | GLUCOSE (NO CHG), | e | 3:21 PM | recurrence not | procedure are in the | | POC | | PDT | specified | results section. | + +--------+ + + + | CAPILLARY BLOOD | Routin | 03/01/2015 | Ventral hernia, | Results for this | | GLUCOSE (NO CHG), | e | 12:59 PM | recurrence not | procedure are in the | | POC | | PDT | specified | results section. | + +--------+ + + + | VENTRAL HERNIA | Electi | 03/01/2015 | VENTRAL HERNIA | | | REPAIR | ve | 9:53 AM | | | | | Surgic | PDT | | | | | al | | | | + +--------+ + + + | CAPILLARY BLOOD | Routin | 03/01/2015 | Ventral hernia, | Results for this | | GLUCOSE (NO CHG), | e | 6:26 AM | recurrence not | procedure are in the | | POC | | PDT | specified | results section. | + +--------+ + + + | CBC (HEMOGRAM) ONLY | Routin | 03/01/2015 | | Results for this | | | e | 6:00 AM | | procedure are in the | | | | PDT | | results section. | + +--------+ + + + | CBC ONLY | Routin | 03/01/2015 | | Results for this | | | e | 6:00 AM | | procedure are in the | | | | PDT | | results section. | + +--------+ + + + | CAPILLARY BLOOD | Routin | 2015 | Ventral hernia, | Results for this | | GLUCOSE (NO CHG), | e | 11:56 PM | recurrence not | procedure are in the | | POC | | PDT | specified | results section. | + +--------+ + + + documented in this encounter Results PROCEDURE NOTE (08/30/2015 1:03 PM PST)OPERATION RECORD (03/05/2015 10:25 AM PDT) + ---+ | Transcriptions | + ---+ | Shahid Cantu MD - 03/02/2015 9:15 AM PDT Date of Service: 03/01/2015 | | Attending Surgeon: Shahid Cantu MD Digital Production Manager(s): Howie Angeles MD, R5 | | Karthik Gonzalez MD, R2 Preoperative Diagnosis: | | Incisional hernia.Postoperative Diagnosis: Incisional hernia.Procedure Performed: | | Primary incisional hernia repair and scar excisionFindings: Incisional hernia | | containing transverse colon was encountered at a presumed prior trocar site, likely from | | a prior cholecystectomy. The hernia was found to be tightly adhered to the anterior | | fascia and required that the hernia sac was entered for complete reduction. The colon | | was pink and viable, without evidence of ischemia. Attenuated fascia was also | | encountered, and the defect closed primarily.Complications: None apparent.Estimated | | Blood Loss: 25 mL.Fluids: Crystalloid administered during the procedure was 1 | | L.Specimens: None.Drains: None.Indications: Dylan Romero is a 40-year-old female with | | diabetes and morbid obesity with a BMI of 71, and known ventral hernia from the incision | | of a prior laparoscopic surgery. She was transferred with three days of abdominal | | pain, nausea, and several episodes of vomiting. The patient elected to have her | | symptomatic hernia repaired, and was educated on the risks and benefits of the | | procedure. It was felt that the hernia was incarcerated and appropriate for reduction | | and repair.Procedure In Detail: The patient was brought in the operating room, | | transferred to the operating table in the supine position. General anesthesia was | | induced, a preoperative time-out held. All involved parties were present. The | | patient's identification and procedure to be performed were correctly identified. The | | abdomen was then prepped and draped in the normal sterile fashion. An eliptical | | incision was made around the previous scar overlying the palpable hernia. The scar was | | excised. Electrocautery and blunt dissection was used to continue dissection to the | | hernia sac. Attempts were made to dissect the hernia sac fromsurrounding fascial | | defect. However, due to densely adhered tissue, the hernia sac was unable to be | | completely mobilized without entering the peritoneum. The hernia sac was opened and a | | healthy appearing segment of transverse colon was reduced. Electrocautery was then used | | to remove the remaining sac from the fascia and expose all fascial edges. Next, | | interrupted Maxon sutures were used to reapproximate the fascial edges laterally. The | | subcutaneous tissue was then approximated with 4-0 Vicryl interrupted sutures. The | | subdermal layer was then also approximated with interrupted absorbable sutures, and the | | skin closed with a running 4-0 Biosyn. The wound and surrounding skin was then cleaned | | and dried, and the incision covered with Dermabond and clean dressing. The patient | | tolerated the procedure well. All counts were correct at the end of the case. Dr. Perez | | Pepe was present and scrubbed for the entirety of the case.RIGOBERTO Mathewsursuant | | to federal Medicare and Medicaid regulations I was present for the entire | | procedure.Shahid Dailey ProfessorTrauma, Critical Care & Acute Care | | SurgeryPRINCE Galo/MODLDD: 03/02/2015 08:25:39DT: 03/02/2015 09:15:57Job #: | | [id number] | | | |Dr. Chris Cantu was present and scrubbed for the entirety of the case. | | | | | | | |Karthik Gonzalez MD | | | |Pursuant to federal Medicare and Medicaid regulations I was present for the entire procedur e. | | | | | | | |Shahid Cantu MD | |Lead Technical Writer | |Trauma, Critical Care & Acute Care Surgery | | | | | | | |Shahid Cantu MD | |TBK/MODL | | | | | | /[id number] | + ---+ CAPILLARY BLOOD GLUCOSE (NO CHG), POC (03/03/2015 12:15 PM PDT) + +---------+ + + + | Component | Value | Ref Range | Performed | Pathologist | | | | | At | Signature | + +---------+ + + + | BLOOD | 138 (H) | 60 - 99 mg/dL | [facility] - | [...] [facility] | [address] | [place], [place] | | | [facility] | [address] | [address] | | | TESTS | | | | + + + + + CAPILLARY BLOOD GLUCOSE (NO CHG), POC (03/03/2015 7:28 AM PDT) + +---------+ + + + | Component | Value | Ref Range | Performed | Pathologist | | | | | At | Signature | + +---------+ + + + | BLOOD | 119 (H) | 60 - 99 mg/dL | [facility] - | [...] [facility] | [address] | [place], [place] | | | [facility] | [address] | [address] | | | TESTS | | | | + + + + + CAPILLARY BLOOD GLUCOSE (NO CHG), POC (03/02/2015 9:30 PM PDT) + +---------+ + + + | Component | Value | Ref Range | Performed | Pathologist | | | | | At | Signature | + +---------+ + + + | BLOOD | 122 (H) | 60 - 99 mg/dL | [facility] | [...] [facility] | [address] | [place], [place] | | | [facility] | [address] | [address] | | | TESTS | | | | + + + + + CAPILLARY BLOOD GLUCOSE (NO CHG), POC (03/02/2015 6:54 PM PDT) + +---------+ + + + | Component | Value | Ref Range | Performed | Pathologist | | | | | At | Signature | + +---------+ + + + | BLOOD | 118 (H) | 60 - 99 mg/dL | [facility] - | [...] [facility] | [address] | [place], [place] | | | [facility] | [address] | [address] | | | TESTS | | | | + + + + + CAPILLARY BLOOD GLUCOSE (NO CHG), POC (03/02/2015 12:05 PM PDT) + +---------+ + + + | Component | Value | Ref Range | Performed | Pathologist | | | | | At | Signature | + +---------+ + + + | BLOOD | 102 (H) | 60 - 99 mg/dL | [facility] - | [...] [facility] | [address] | [place], [place] | | | [facility] | [address] | [address] | | | TESTS | | | | + + + + + CAPILLARY BLOOD GLUCOSE (NO CHG), POC (03/02/2015 8:19 AM PDT) + +---------+ + + + | Component | Value | Ref Range | Performed | Pathologist | | | | | At | Signature | + +---------+ + + + | BLOOD | 116 (H) | 60 - 99 mg/dL | [facility] - | [...] [facility] | [address] | [place], [place] | | | [facility] | [address] | [phone] | | | TESTS | | | | + + + + + CBC (HEMOGRAM) ONLY (03/02/2015 5:44 AM PDT) + + + + + + | Component | Value | Ref Range | Performed | Pathologist | | | | | At | Signature | + + + + + + | WHITE CELL | 9.62 | 4.40 - 11.00 | [facility] | | | COUNT | | K/cu mm | LABORATORY | | | | | | SERVICES, | | | | | | CORE | | + + + + + + | RED CELL | 4.27 | 4.00 - 5.20 | [facility] | | | COUNT | | M/cu mm | LABORATORY | | | | | | SERVICES, | | | | | | CORE | | + + + + + + | HEMOGLOBIN | 10.4 (L) | 12.0 - 16.0 | [facility] | | | | | g/dL | LABORATORY | | | | | | SERVICES, | | | | | | CORE | | + + + + + + | HEMATOCRIT | 35.7 (L) | 36.0 - 46.0 % | [facility] | | | | | | LABORATORY | | | | | | SERVICES, | | | | | | CORE | | + + + + + + | MCV | 83.6 | 80.0 - 96.0 fL | [facility] | | | | | | LABORATORY | | | | | | SERVICES, | | | | | | CORE | | + + + + + + | MCHC | 29.1 | 33.0 - 35.5 | [facility] | | | | | g/dL | LABORATORY | | | | | | SERVICES, | | | | | | CORE | | + + + + + + | RDW SD | 47.9 (H) | 35.1 - 46.3 fL | [facility] | | | | | | LABORATORY | | | | | | SERVICES, | | | | | | CORE | | + + + + + + | PLATELET | 209 | 150 - 400 K/cu | [facility] | | | COUNT | | mm | LABORATORY | | | | | | SERVICES, | | | | | | CORE | | + + + + + + | MPV | 9.5 (L) | 9.7 - 12.3 fL | [facility] [...] [facility] | [address] | [place] [address] | | | SERVICES, CORE | [address] | | | + + + + + BASIC METABOLIC SET (NA, K, CL, TCO2, BUN, CR, GLU, CA) (03/02/2015 5:44 AM PDT) + +---------+ + + + | Component | Value | Ref Range | Performed | Pathologist | | | | | At | Signature | + +---------+ + + + | GLUCOSE, | 111 (H) | 60 - 99 mg/dL | [facility] | | | PLASMA | | | LABORATORY | | | (LAB) | | | SERVICES, | | | | | | CORE | | + +---------+ + + + | BUN, PLASMA | 8 | 6 - 20 mg/dL | [facility] | | | (LAB) | | | LABORATORY | | | | | | SERVICES, | | | | | | CORE | | + +---------+ + + + | CREATININE | 0.80 | 0.60 - 1.10 | [facility] | | | PLASMA | | mg/dL | LABORATORY | | | (LAB) | | | SERVICES, | | | | | | CORE | | + +---------+ + + + | EGFR | >60 | >60 mL/min | [facility] | | | - | | | LABORATORY | | | CONGOLESE | | | SERVICES, | | | | | | CORE | | + +---------+ + + + | EGFR NON | >60 | >60 mL/min | [facility] | | | -RAJNI | | | LABORATORY | | | RICAN | | | SERVICES, | | | | | | CORE | | + +---------+ + + + | SODIUM, | 140 | 136 - 145 | [facility] | | | PLASMA | | mmol/L | LABORATORY | | | (LAB) | | | SERVICES, | | | | | | CORE | | + +---------+ + + + | POTASSIUM, | 3.4 | 3.4 - 5.0 | [facility] | [...] + + + | TOTAL CO2, | 29 | 21 - 32 mmol/L | [facility] | | | PLASMA | | | LABORATORY | | | (LAB) | | | SERVICES, | | | | | | CORE | | + +---------+ + + + | CALCIUM, | 7.9 (L) | 8.6 - 10.2 | [facility] | | | PLASMA | | mg/dL | LABORATORY | | | (LAB) | | | SERVICES, | | | | | | CORE | | + +---------+ + + + | ANION GAP | 5 | mmol/L | [facility] | | | [...] the MDRD equation recommended by the | [facility] | | National Kidney Disease Education Program. [...] | + + + + + | [facility] | [address] | [place] [address] | | | CLAIRE, LYDIA | [address] | | | + + + + + CAPILLARY BLOOD GLUCOSE (NO CHG), POC (03/01/2015 10:37 PM PDT) + +---------+ + + + | Component | Value | Ref Range | Performed | Pathologist | | | | | At | Signature | + +---------+ + + + | BLOOD | 121 (H) | 60 - 99 mg/dL | [facility] - | | | GLUCOSE, [...] [facility] | [address] | [place], [place] | | | JUSTINE [facility]WN OF J[facility] | [facility] | [address] | | | TESTS | | | | + + + + + CAPILLARY BLOOD GLUCOSE (NO CHG), POC (03/01/2015 6:20 PM PDT) + +---------+ + + + | Component | Value | Ref Range | Performed | Pathologist | | | | | At | Signature | + +---------+ + + + | BLOOD | 124 (H) | 60 - 99 mg/dL | [facility] - | | | GLUCOSE, | | | [facility] | | | POC | | | [place], POINT | | [...] AMES | [address] | [place], [place] | | | [facility] | [address] | [address] | | | TESTS | | | | + + + + + CAPILLARY BLOOD GLUCOSE (NO CHG), POC (03/01/2015 3:21 PM PDT) + +---------+ + + + | Component | Value | Ref Range | Performed | Pathologist | | | | | At | Signature | + +---------+ + + + | BLOOD | 112 (H) | 60 - 99 mg/dL | [facility] - | [...] KW[facility] | [address] | [place], [place] | | | [facility] | [facility] | [address] | | | TESTS | | | | + + + + + CAPILLARY BLOOD GLUCOSE (NO CHG), POC (03/01/2015 12:59 PM PDT) + +---------+ + + + | Component | Value | Ref Range | Performed | Pathologist | | | | | At | Signature | + +---------+ + + + | BLOOD | 125 (H) | 60 - 99 mg/dL | [facility] - | | | GLUCOSE, [...] [facility] | [address] | [place], [place] | | | [facility] [place] | [facility] | [address] | | | TESTS | | | | + + + + + CAPILLARY BLOOD GLUCOSE (NO CHG), POC (03/01/2015 6:26 AM PDT) + +---------+ + + + | Component | Value | Ref Range | Performed | Pathologist | | | | | At | Signature | + +---------+ + + + | BLOOD | 112 (H) | 60 - 99 mg/dL | [facility] - | [...] AMES | [address] | [place], [place] | | | JUSTINE DAWN OF [place] | [address] | [address] | | | TESTS | | | | + + + + + CBC (HEMOGRAM) ONLY (03/01/2015 6:00 AM PDT) + + + + + + | Component | Value | Ref Range | Performed | Pathologist | | | | | At | Signature | + + + + + + | WHITE CELL | 7.84 | 4.40 - 11.00 | [facility] | | | COUNT | | K/cu mm | LABORATORY | | | | | | SERVICES, | | | | | | CORE | | + + + + + + | RED CELL | 4.72 | 4.00 - 5.20 | [facility] | | | COUNT | | M/cu mm | LABORATORY | | | | | | SERVICES, | | | | | | CORE | | + + + + + + | HEMOGLOBIN | 11.6 (L) | 12.0 - 16.0 | [facility] | | | | | g/dL | LABORATORY | | | | | | SERVICES, | | | | | | CORE | | + + + + + + | HEMATOCRIT | 38.5 | 36.0 - 46.0 % | [facility] | | | | | | LABORATORY | | | | | | SERVICES, | | | | | | CORE | | + + + + + + | MCV | 81.6 | 80.0 - 96.0 fL | [facility] | | | | | | LABORATORY | | | | | | SERVICES, | | | | | | CORE | | + + + + + + | MCHC | 30.1 | 33.0 - 35.5 | [facility] | | | | | g/dL | LABORATORY | | | | | | SERVICES, | | | | | | CORE | | + + + + + + | RDW SD | 47.0 (H) | 35.1 - 46.3 fL | [facility] | | | | | | LABORATORY | | | | | | SERVICES, | | | | | | CORE | | + + + + + + | PLATELET | 227 | 150 - 400 K/cu | [facility] | | | COUNT | | mm | LABORATORY | | | | | | SERVICES, | | | | | | CORE | | + + + + + + | MPV | 9.2 (L) | 9.7 - 12.3 fL | [facility] [...] | + + + + + | [facility] | [address] [facility] [address] | [place] [address] | | | SERVICES, CORE | [address] | | | + + + + + CAPILLARY BLOOD GLUCOSE (NO CHG), POC (2015 11:56 PM PDT) + +---------+ + + + | Component | Value | Ref Range | Performed | Pathologist | | | | | At | Signature | + +---------+ + + + | BLOOD | 123 (H) | 60 - 99 mg/dL | [facility] - | [...] + + + | NKECHI AMES | [address] | [place], [place] | | | JUST[facility] OF [facility] | [facility] | [address] | | | TESTS | | | | + + + + + documented in this encounter Visit Diagnoses Not on filedocumented in this encounter Administered Medications + +--------+ +-------+------+ + | Medication Order | MAR | Action | Dose | Rate | Site | | | Action | Date | | | | + +--------+ +-------+------+ + | lidocaine 1% w/ EPI | Given | 03/01/20 | 20 mL | | Surgical | | 1:100K-bupivacaine 0.25% w/ EPI | | 15 11:43 | | | Site | | 1:200K injection INTRAPROCEDURE | | AM PDT | | | | | PRN, Starting Jasmyne 03/01/15 at 1143, | | | | | | | Until Jasmyne 03/01/15 at 1207 | | | | | | + +--------+ +-------+------+ + +---+---+ | | | +---+---+ documented in this encounter
--- OUTSIDE RECORDS SUMMARY | ~2020-02-27 | XMS | Encounter Summary ---
Demographics + + + | Address | [address] | | | [place] [address] | + + + | Home Phone | | + + + | Preferred Language | Unknown | + + + | Marital Status | Single | + + + | Catholic Affiliation | NON | + + + [...] + | Katalina Padilla | ECON | [address] | | | | | [place], [place] | | | | | [address] | | + + + + + | Ellie Vang | ECON | Unknown | | + + + + + Care Team Providers + +------+ + | Care Shipfitter Helper Name | Role | Phone | [...] Description | +--------+---------+ + + + | 09/08/ | Office | Digestive Health | Chilo, | Postop check | | 2020 | Visit | Center at [facility] [address] | MD [address] | (Primary Dx) | | | | [facility] | [facility] | | | | | [facility] and | [place], [place] | | | | | [facility] | [address] | | | | | [place], [place] | [phone] | | | | | [address] | | | | | | [phone] | | | +--------+---------+ + + + [...] + + + | Blood Pressure | 113/57 | 09/08/2019 2:04 PM | | | | | PST | | + + + + + | Pulse | 125 | 09/08/2019 2:04 PM | | | | | PST | | + + + + + | Temperature | 36.9 C (98.4 F) | 09/08/2019 2:04 PM | | | | | PST | | + + + + + | Respiratory Rate | 20 | 09/08/2019 2:04 PM | | | | | PST | | + + + + + | Oxygen Saturation | - | - | | + + + + + | Inhaled Oxygen | - | - | | | Concentration | | | | + + + + + | Weight | 122.5 kg (270 lb) | 09/08/2019 2:04 PM | | | | | PST | | + + + + + | Height | 147.3 cm (4' 10") | 09/08/2019 2:04 PM | | | | | PST | | + + + + + | Body Mass Index | 56.43 | 09/08/2019 2:04 PM | | | | | PST [...] of this encounter Patient Instructions Patient Instructions Kyrie Warren - 09/08/2019 2:00 PM PST I recommend you go to the ED in [place] for workup of pulmonary embolism. I will call them to notify them of your arriv al. Follow up with me in 3 months and as needed, but call with any questions or concerns. El ectronically signed by Kyrie Warren at 09/08/2019 2:27 PM PST documented in this encounter Progress Notes Jones Woo MD - 09/08/2019 2:00 PM PSTGENERAL SURGERY POSTOP FOLLOW UP DATE OF VISIT: 09/08/2019 REASON FOR VISIT: Postop check (3 weeks) DATE OF ADMISSION--DISCHARGE: 08/18/2019 - 08/23/2019 (5 days) DIAGNOSIS: Incarcerated incisional ventral hernia PROCEDURE: Primary ventral incisional hernia repair FINDINGS: A larger midline ventral defect containing fat and transverse colon, and a smalle r left lower quadrant defect containing preperitoneal fat. Upper midline fascial weakness a nd diastasis, but no other hernia defects noted. INTERVAL HISTORY: Elzbieta Cristina is a 44 y.o. female s/p primary ventral hernia repair, h ere for 3 week postop check. Of note, she was admitted to [facility] 09/02/2019 - 09/04/2019 for a large wound hem atoma and was seen in the ED, had it evacuated, irrigated and drain placed. TODAY IN CLINIC: Patient returns today with complaints of shortness of breath, burning sensation in lungs, g etting easily fatigues, headache, nausea. She is having pain in the drain site. She is very concerned for pulmonary embolism. During her hospital stay, she was told that she was very c lose to needing a blood transfusion. She is holding coumadin for now. Her drain outputs are approximately 30 mL per day and passing clots through it. Her bowel movements have been more normal since surgery. PHYSICAL EXAMINATION: BP 113/57 | Pulse 125 | Temp 36.9 C (98.4 F) (Oral) | Resp 20 | Ht 1.473 m (4' 10") | Wt 122.5 kg (270 lb) | BMI 56.43 kg/m | BSA 2.24 m SURGICAL SITE: Wound is healing well. Drain with serosanguinuous fluid. Single suture cut after releasing suction; drained remov ed intact without incident and covered with DSD. IMPRESSION: A 44 y.o. female s/p primary ventral hernia repair, now 3 weeks postop. There is no evidence of fluid collection, infection, or hernia recurrence at this time. She is scooter y concerned for post-op pulmonary embolism given her recent ED visit and symptoms of difficu lty breathing and burning sensation in her lungs. PLAN: Recommended patient present to the ED in [place] for workup of pulmonary embolism Will call [facility] to let them know she will arrive soon. Follow up in 3 months and PRN, but call with any questions or concerns. I am Kyrie Warren functioning as a scribe for Jones Woo MD at 2:20 PM on 09/08/2019 I have reviewed and verified the above scribed note of my visit with this patient as record ed by Kyrie Warren. JONES WOO MD [facility] [address] Mailcode: [place] [address] documented in this encounter Plan of Treatment +--------+ + + + + | Date | Type | Specialty | Care Team | Description | +--------+ + + + + | 03/22/ | Office | Cardiology | Randell Franks, | | | 2019 | Visit | | [address] | | | | | | [place], [place] | | | | | | [address] | | | | | | [phone] | | | | | | | | +--------+ + + + + | 04/04/ | Telephone-S | Surgery | Orquidea Cristobal, | | | 2020 | sherrill | | METAL FURNITURE POLISHER [address] | | | | | | [place], [place] | | | | | | [address] | | | | | | [phone] | | | | | | | | +--------+ + + + + documented as of this encounter Visit Diagnoses + + | Diagnosis | + + | Postop check - Primary Follow-up examination, following unspecified surgery | + + documented in this encounter
--- OUTSIDE RECORDS SUMMARY | ~2020-02-27 | XMS | Encounter Summary ---
Demographics + + + | Address | [address] | | | [place] [address] | + + + | Home Phone | | + + + | Preferred Language | Unknown | + + + | Marital Status | Single | + + + | Scientology Affiliation | NON | + + + [...] + | Katalina Padilla | ECON | [address] | | | | | [place], [place] | | | | | [address] | | + + + + + | Ellie Vang | ECON | Unknown | | + + + + + Care Team Providers + +------+ + | Care Nursing Staffing Coordinator Name | Role | Phone | + +------+ + PCP | Unavailable | + +------+ + Encounter Details +--------+ + + + + | Date | Type | Department | Care Team | Description | +--------+ + + + + | 10/25/ | Results | Neurosurgery [address] | [address]ender, | | | 1991 | Only | [address] | ,PhD | | | | | Rd Mailcode:OP14B | | | | | | [facility] | | | | | | [place], [place] | | | | | | [address] | | | | | | [phone] | | | +--------+ + + + [...] [address] | | | | | | [place], [place] | | | | | | [address] | | | | | | [phone] | | | | | | | | +--------+ + + + + | 04/04/ | Telephone-S | Surgery | Orquidea Cristobal, | | | 2019 | sherrill | | DICTAPHONE TECHNICIAN [address] | | | | | | [place], [place] | | | | | | [address] | | | | | | [phone] | | | | | | | [...] in | | | | | | Sarah. | | | | | | | | | | | | Julia Blackman at [facility]. | | | | | | [...] | | | | artery. A 4.1 Croatian | | | | | | catheter was navigated | | | | | | over0.035" Donal coated | | | | | | Sitesimonson guide wire into | | | | [...] +---------+ + + | [facility] DEPARTMENT | | | | | RADIOLOGY | | | | + +---------+ + + documented in this encounter Visit Diagnoses Not on filedocumented in this encounter
--- OUTSIDE RECORDS SUMMARY | ~2020-02-27 | XMS | Encounter Summary ---
Demographics + + + | Address | [address] | | | [place] [address] | + + + | Home Phone [...] + | Katalina Padilla | ECON | [address] | | | | | [place], [place] | | | | | [address] | | + + + + + | Ellie Vang | ECON | Unknown | | + + + + + Care Team Providers + +------+ + | Care Cooling Pipe Inspector Name | Role | Phone | [...] Description | +--------+--------+ + + + | 01/24/ | Refill | Cardiology | Randell Franks, | Refill Request | | 2014 | | Preventive at [facility] | MD [address] | | | | | [address] | [place], [place] | | | | | [facility] | [address] | | | | | and [place], | [phone] | | | | | [address] | | | | | | [place], [place] | | | | | | [address] | | | | | | [phone] | | | +--------+--------+ + + + [...] [address] | | | | | | [place], [place] | | | | | | [address] | | | | | | [phone] | | | | | | | | +--------+ + + + + | 04/04/ | Telephone-S | Surgery | Orquidea Cristobal, | | | 2020 | cheduled | | GEAR CUTTING MACHINE SET UP OPERATOR [address] | | | | | | [place] | | | | | | [address] | | | | | | [phone] | | | | | | | | +--------+ + + + + documented as of this encounter Visit Diagnoses Not on filedocumented in this encounter"
--- OUTSIDE RECORDS SUMMARY | ~2020-02-27 | XMS | Encounter Summary ---
Demographics + + + | Address | [address] | | | [place] [address] | + + + | Home Phone [...] + | Katalina Padilla | ECON | [address] | | | | | [place], [place] | | | | | [address] | | + + + + + | Ellie Vang | ECON | Unknown | | + + + + + Care Team Providers + +------+ + | Care Marine Superintendent Name | Role | Phone | + [...] | | 2019 | | Preventive at [facility] | MD [address] | re-test? ) | | | | [address] | [place], [place] | | | | | [facility] | [address] | | | | | and [place], | [phone] | | | | | [place] [address] | | | | | | [facility] [place] | | | | | | [address] | | | | | | [phone] | | | +--------+ + + + [...] Ave | | | | | | [place], [place] | | | | | | [address] | | | | | | [phone] | | | | | | | | +--------+ + + + + | 04/04/ | Telephone-S | Surgery | Orquidea Cristobal, | | | 2019 | cheduled | | COFFEE WEIGHER [address] | | | | | | [facility], [place] | | | | | | [address] | | | | | | [phone] | | | | | | | [...]
--- OUTSIDE RECORDS SUMMARY | ~2020-02-27 | XMS | Encounter Summary ---
Demographics + + + | Address | [address] | | | [place] [address] | + + + | Home Phone [...] Author + + + | Author | [facility] | + + + | Organization | [facility] | + + + | Address | Unknown | + + + | Phone | Unavailable | + + + Support + + + + + | Name | Relationship | Address | Phone | + + + + + | Katalina Padilla | ECON | [address] | | | | | [place], [place] | | | | | [address] | | + + + + + | Ellie Vang | ECON | Unknown | | + + + + + Care Team Providers + +------+ + | Care Middle School Principal Name | Role | Phone | + +------+ + | Kenyatta Cardenas MD | PCP | | + +------+ + Reason for Visit + + + | Reason | Comments | + + + | Medication Question | Phentermine | + + + Encounter Details +--------+ + + + + | Date | Type | Department | Care Team | Description | +--------+ + + + + | 02/23/ | Telephone | Cardiology in | Randell Franks, | Medication Question | | 2019 | | [facility] | [address] | (Phentermine) | | | | [place] at | [place], [place] | | | | | [place] [address] | [address] | | | | | [facility] | [phone] | | | | | [facility] | | | | | | [place], [place] | | | | | | [address] | | | | | | [phone] | | | +--------+ + + + [...] [address] | | | | | | [place], [place] | | | | | | [address] | | | | | | [phone] | | | | | | | | +--------+ + + + + | 04/04/ | Telephone-S | Surgery | Orquidea Cristobal, | | | 2019 | cheduled | | INSTITUTIONAL RESEARCH DIRECTOR [address] | | | | | | [place], [place] | | | | | | [address] | | | | | | [phone] | | | | | | | | +--------+ + + + + documented as of this encounter Visit Diagnoses Not on filedocumented in this encounter"
--- OUTSIDE RECORDS SUMMARY | ~2020-02-27 | XMS | Encounter Summary ---
Demographics + + + | Address | [address] | | | [place] [address] | + + + | Home Phone [...] + | Katalina Padilla | ECON | [address] | | | | | [place], [place] | | | | | [address] | | + + + + + | Ellie Vang | ECON | Unknown | | + + + + + Care Team Providers + +------+ + | Care Dermatology Nurse Practitioner Name | Role | Phone | [...] | | CT ABDOMEN & | [facility] | [facility] | | | | | PELVIS W IV | for Health | Hospital, | | | | | CONTRAST | and Healing, | 10th Floor | | | | | | [address] | [place], [place] | | | | | | [place], | [address] | | | | | | [place] | Phone: | | | | | | [address] | [phone] | | | | | | Phone: | Fax: | | | | | | [phone] | [phone] | | | | | | Fax: | | | | | | | [phone] | | +--------+--------+ + + + + [...] | | | | hernia | [place] | [address] | | | | | without | SURGICAL | [address] [facility] | | | | | mention of | CLINIC [address] [place], | | | | | obstruction | [address] | [place] | | | | | or gangrene | AVE | [address] | | | | | | [place], | Phone: | | | | | | [place] [address] | [phone] | | | | | | Phone: | Fax: | | | | | | [phone] | [phone] | | | | | | Fax: | | | | | | | [phone] | | +--------+--------+ + + + + Encounter Details +--------+---------+ + + + | Date | Type | Department | Care Team | Description | +--------+---------+ + + + | 10/07/ | Office | Digestive Health | Hernandez Brian, | Hernia (Primary Dx) | | 2012 | Visit | Center at [facility] [address] | [address] [facility] | | | | | [facility] | [address] | | | | | for Health and | [place], [place] | | | | | [facility] 2 | [address] | | | | | [place], [place] | [phone] | | | | | [address] | | | | | | [phone] | | | +--------+---------+ + + + [...] colonoscopy), but a referral to [facility] mentioned this was probably an incisional [...] issues. 2. Optimally will need coordination for [facility] Medicaid & [facility] Bariatric program for wt loss. 3. No [...] material. 4. Continue to meet with her Supervisor Contact Lens in the outpatient setting for diet and [...] has been instructed to f/u w/ her instructor of sociology for a strict diet of <1000 kcal/d [...] teaching. Howie Faria MD MIS/Bariatric Fellow, Pager [address] [facility] Attending provider: Hernandez Brian MD documented in this en counter Plan of Treatment +--------+ + + + + | Date | Type | Specialty | Care Team | Description | +--------+ + + + + | 03/22/ | Office | Cardiology | Randell Franks, | | | 2019 | Visit | | [address] | | | | | | [place], [place] | | | | | | [address] | | | | | | [phone] | | | | | | | | +--------+ + + + + | 04/04/ | Telephone-S | Surgery | Orquidea Cristobal, | | | 2020 | sherrill | | BREAST SURGEON [address] | | | | | | [place], [place] | | | | | | [address] | | | | | | [phone] | | | | | | | [...] | | + +---------+ + + | [facility] DEPARTMENT OF | | | | | RADIOLOGY | | | | + +---------+ + + documented in this encounter Visit Diagnoses + + | Diagnosis | + + | Hernia - Primary Hernia of unspecified site of abdominal cavity without mention of | | obstruction or gangrene | + + documented in this encounter
--- OUTSIDE RECORDS SUMMARY | ~2020-02-27 | XMS | Encounter Summary ---
Demographics + + + | Address | [address] | | | [place] [address] | + + + | Home Phone [...] [place], [place] | | | | | [address] | | + + + + + | Ellie Vang | ECON | Unknown | | + + + + + Care Team Providers + +------+ + | Care Batch Or Continuous Still Operator Name | Role | Phone | + +------+ + | Fadi Goodrich DO | PCP | | + +------+ + Encounter Details +--------+ + + + + | Date | Type | Department | Care Team | Description | +--------+ + + + + | 03/04/ | Telephone | Digestive Health | Ion Pandey, | | | 2018 | | Center at [facility] [address] | MD [address] | | | | | [address] | [place], [place] | | | | | [facility] and | [phone] | | | | | Healing, [facility] [address] | | | | | | [place], [place] | | | | | | [address] | | | | | | | [...] [address] | | | | | | [place], [place] | | | | | | [address] | | | | | | [phone] | | | | | | | | +--------+ + + + + | 04/04/ | Telephone-S | Surgery | Orquidea Cristobal, | | | 2019 | [email or web address] | | [facility] [address] | | | | | | [place] | | | | | | [address] | | | | | | [phone] | | | | | | | | +--------+ + + + + documented as of this encounter Visit Diagnoses Not on filedocumented in this encounter"
--- OUTSIDE RECORDS SUMMARY | ~2020-02-27 | XMS | Encounter Summary ---
Demographics + + + | Address | [address] | | | [place] [address] | + + + | Home Phone | | + + + | Preferred Language | Unknown | + + + | Marital Status | Single | + + + | Anglican Affiliation | NON | + + + [...] + | Katalina Padilla | ECON | [address] | | | | | [place], [place] | | | | | [address] | | + + + + + | Ellie Vang | ECON | Unknown | | + + + + + Care Team Providers + +------+ + | Care Oxidized Finish Plater Name | Role | Phone | + +------+ + | Fadi Goodrich DO | PCP | | + +------+ + Encounter Details +--------+ + + + + | Date | Type | Department | Care Team | Description | +--------+ + + + + | 08/22/ | Abstract | Cardiology | Randell Franks, | | | 2013 | | Preventive at [facility] | MD [address] | | | | | [address] | [place], [place] | | | | | [facility] | [address] | | | | | and Erick, | [phone] | | | | | Building [address] | | | | | | [facility] [place] | | | | | | [address] | | | | | | [phone] | | | +--------+ + + + [...] Ave | | | | | | [place], [place] | | | | | | [address] | | | | | | [phone] | | | | | | | | +--------+ + + + + | 04/04/ | Telephone-S | Surgery | Orquidea Cristobal, | | | 2019 | sherrill | | DESK 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
--- OUTSIDE RECORDS SUMMARY | ~2020-02-27 | XMS | Encounter Summary ---
Demographics + + + | Address | [address] | | | [place] [address] | + + + | Home Phone [...] + + + + + | Katalina Padlila | ECON | [address] | | | | | [place], [place] | | | | | [address] | | + + + + + | Ellie Vang | ECON | Unknown | | + + + + + Care Team Providers + +------+ + | Care Coating Machine Operator Helper Name | Role | Phone | [...] | [facility] | | | with GERIATRIC CASE MANAGER | | hypertension | [address] | [address] | | | | | Right | [address] | [address] | | | | | heart | [place], [place] | [place] [facility] | | | | | failure | [address] | Health and | | | | | ([facility]) Type | Phone: | Healing, | | | | | 2 diabetes | [phone] | [address] | | | | | mellitus | Fax: | [place], [place] | | | | | without | [phone] | [address] | | | | | complication | | Phone: | | | | | , with | | [phone] | | | | | long-term | | Fax: | | | | | current use | | [phone] | | | | | of insulin | | | | | | | ([facility]) | | | | | | | [...] 10/30/ | Office | Digestive Health | Dannie Lemon Vinicius, | Morbid obesity with | | 2017 | Visit | Center at [facility] [address] | [address] | BMI of 70 and over, | | | | [address] | [place], [place] | adult ([facility]) (Primary | | | | for Health and | [address] | Dx); Diabetes | | | | Healing, Building [address] | | mellitus type 2 | | | | [place], [place] | | without retinopathy | | | | [address] | | ([facility]); | | | | | | Intertriginous | | | | | | candidiasis; PCOS | | | | | | (polycystic ovarian | | | | | | syndrome); AMARA | | | | | | treated with BiPAP; | | | | | | Chronic diastolic | | | | | | heart failure ([facility]); | | | | | | Essential [...] Pressure | 150/90 | 10/30/2017 10:15 AM | | | | | PDT | | + + + + + | Pulse | 80 | 10/30/2017 10:15 AM | | | | | PDT | | + + + + + | Temperature | 36.6 C (97.9 F) | 10/30/2017 10:15 AM | | | | | PDT | | + + + + + | Respiratory Rate | 16 | 10/30/2017 10:15 AM | | | | | PDT | | + + + + + | Oxygen Saturation | - | - | | + + + + + | Inhaled Oxygen | - | - | | | Concentration | | | | + + + + + | Weight | 178.9 kg (394 lb 6.4 | 10/30/2017 10:15 AM | | | | oz) | PDT | | + + + + + | Height | 149.9 cm (4' 11") | 10/30/2017 10:15 AM | | | | | PDT | | + + + + + | Body Mass Index | 79.66 | 10/30/2017 10:15 AM | | | | | PDT | | + + + + + documented in this encounter Patient Instructions Patient Instructions Ion Castanon MD - 10/30/2017 10:00 AM PDTPlease visit with our [facility] Material [facility] (RD) for instructions about your Bariatric diet, assistance with calorie c ounts, tips and tricks for working with your diet restrictions, and recipes after bariatric surgery. Daily yogurt; even just 1 tablespoon twice a day will provide enough probiotics to optimize digestion. Try to use a high-quality, probiotic-dense yogurt (eg Zaria's, [place], Lif eway Kefir, Wood Coater Duke's Swedish Yogurt). Remember to chew your food well, [...] to the healing stomach. There are also office specialist complications of poor wound healing and gastric [...] number). documented in this encounter Progress Notes Ion Castanon MD - 10/30/2017 10:00 AM PDTFormatting of this note might be different fro m the original. BARIATRIC SURGERY PREOP EXAM & [...] 1 tablet by mouth once daily CALCIUM [id number] ORAL Take 2 tablets by mouth two [...] History Narrative Updated 11/09/15 She lives in [place] with her mother and her sister (also her caregiver) lives in an artment/duplex below. She has 2 grandchildren (age 4 and 7) who live with her daughter and son-in-law Her boyfriend lives in [place] HFpEF, DM2, HTN, Sleep Apnea (unable to [...] program here and refer her to our resource protection specialist who also has expertise in physical [...] a 4-5% rate of reoperation over the office specialist (i.e. years), as well as other late complications that may or may not require operation or other i ntervention. I stressed that all complication rates and outcomes were estimates only. The pa jojo appeared to understand, was given an opportunity [...] and may approach 5%. We reviewed the [facility] consent form. We discussed that we [...] 10/30/2017 at 10:34 AM ION CASTANON MD. documented in this en counter Plan of Treatment +--------+ + + + + | Date | Type | Specialty | Care Team | Description | +--------+ + + + + | 03/22/ | Office | Cardiology | Randell Franks, | | | 2019 | Visit | | [address] | | | | | | [place], [place] | | | | | | [address] | | | | | | [phone] | | | | | | | | +--------+ + + + + | 04/04/ | Telephone-S | Surgery | Orquidea Cristobal, | | | 2020 | sherrill | | DESKTOP PUBLISHER [address] | | | | | | [place], [place] | | | | | | [address] | | | | | | [phone] | | | | | | | | +--------+ + + + + + +------+--------+ + + | Name | Type | Priori | Associated Diagnoses | Order Schedule | | | | ty | | | + +------+--------+ + + | TYPE AND SCREEN | Lab | Routin | Morbid obesity | Ordered: 10/30/2017 | | | | e | with BMI of 70 and | | | | | | over, adult (HCC) | | | | | | 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| | 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 ([facility]) | | | | | | AMARA treated with | | | | | | BiPAP Chronic | | | | | | diastolic heart | | | | | | failure ([facility]) | | | | | | Essential | | | | | | hypertension | | + +------+--------+ + + documented as of this encounter Results VITAMIN B1, WHOLE BLOOD (11/20/2017 10:01 AM PDT) + + + + + + | Component | Value | Ref Range | Performed | Pathologist | | | | | At | Signature | + + + + + + | VITAMIN B1, | 72Comment: INTERPRETIVE | 70 - 180 nmol/L | [facility] | | | WHOLE | INFORMATION: Vitamin B1, | | REG UNIV | | | BLOOD | Whole Blood This assay | | PTH - [facility] | | | | measures the | | | | | [...] | | | | | determined by [facility] | | | | | | Laboratories. See | | | | | | Compliance Statement B: | | | | | | Via[employer]te/CSPerformed | | | | | | by [address] | | | | | | [facility] | | | | | | [id number] | | | | | | [phone]. | | | | | | AscentisIsmael MD, | | | | | | Lab. Director | | | | + + + + + + + + | Specimen | + + | Blood - Blood | | (substance) | + + + + + + + | Performing | Address | City/State/Zipcode | Phone Number | | Organization | | | | + + + + + | [facility] | [address] | [place], [place] | | | UNIV P[facility] | | [address] | | + + + + + COMPLETE METABOLIC SET (NA,K,CL,CO2,BUN,CREAT,GLUC,CA,AST,ALT,BILI TOTAL,ALK PHOS,ALB,PROT TOTAL) (11/20/2017 10:01 AM PDT) + +---------+ + + + | Component | Value | Ref Range | Performed | Pathologist | | | | | At | Signature | + +---------+ + + + | GLUCOSE, | 144 (H) | 70 - 99 mg/dL | [facility] | | | PLASMA | | | LABORATORY | | | (LAB) | | | SERVICES, | | | | | | CORE | | + +---------+ + + + | BUN, PLASMA | 13 | 6 - 20 mg/dL | [facility] | | | (LAB) | | | LABORATORY | | | | | | SERVICES, | | | | | | CORE | | + +---------+ + + + | CREATININE | 0.92 | 0.60 - 1.10 | [facility] | | | PLASMA | | mg/dL | LABORATORY | | | (LAB) | | | SERVICES, | | | | | | CORE | | + +---------+ + + + | EGFR | >60 | >60 mL/min | [facility] | | | - | | | LABORATORY | | | TURKISH | | | SERVICES, | | | [...] +---------+ + + + | TOTAL | 8.1 | 6.4 - 8.2 g/dL | [facility] [...] + + + | ALK PHOS | 122 (H) | 42 - 98 U/L | [facility] | | | | | | LABORATORY | | | | | | SERVICES, | | | | | | CORE | | + +---------+ + + + | AST(SGOT) | 21 | <=41 U/L | [facility] | | [...] +---------+ + + + | ANION | 12 [...] the MDRD equation recommended by the | [facility] | | National Kidney Disease Education Program. [...] | + + + + + | [facility]ORY | [address] | [place] [address] | | | SERVICES, CORE | [address] | | | + + + + + IRON AND TIBC (11/20/2017 10:01 AM PDT) + +--------+ + + + | Component | Value | Ref Range | Performed | Pathologist | | | | | At | Signature | + +--------+ + + + | IRON | 46 | 30 - 160 ug/dL | [facility] | | | | | | LABORATORY | | | | | | SERVICES, | | | | | | CORE | | + +--------+ + + + | IRON BIND | 334 | 240 - 450 ug/dL | [facility] [...] [facility] | [address] | [place] [address] | | | SERVICES, CORE | [address] | | | + + + + + VITAMIN B-12 (11/20/2017 10:01 AM PDT) + +-------+ + + + | Component | Value | Ref Range | Performed | Pathologist | | | | | At | Signature | + +-------+ + + + | VITAMIN B12 | 686 | 193 - 986 pg/mL | [facility] | | | | | | LABORATORY | | | | | | SERVICES, | | | | | | CORE | | + +-------+ + + + | COMMENT | 4 | | [facility] | | | (HEMO) | | | LABORATORY | | | | | | SERVICES, | | | | | | CORE | | + +-------+ + + + | COMMENT | 1 | | [facility] | | | (ICTERUS) | | | LABORATORY | | | | | | SERVICES, | | | | | | CORE | | + +-------+ + + + | COMMENT | 1 | | [facility] | | | (LIPEMIA) | | | LABORATORY | | | [...] | + + + + + | [facility] | [address] | [place] [address] | | | SERVICES, CORE | [address] | | | + + + + + FERRITIN (11/20/2017 10:01 AM PDT) + + + + + + | Component | Value | Ref Range | Performed | Pathologist | | | | | At | Signature | + + + + + + | FERRITIN | 23 (L)Comment: Male and | 50 - 200 [...] | + + + + + | [facility] | [address] [facility] | [place] [address] | | | SERVICES, CORE | [address] | | | + + + + + PTH, SERUM (11/20/2017 10:01 AM PDT) + +-------+ + + + | Component | Value | Ref Range | Performed | Pathologist | | | | | At | Signature | + +-------+ + + + | PTH, SERUM | 88 | 18 - 88 pg/mL | [facility] [...] + + | New Reference Range effective 12-17. | [facility] | | | LABORATORY | | | SERVICES, CORE | + + + + + + + + | Performing | Address | City/State/Zipcode | Phone Number | | Organization | | | | + + + + + | [facility] | [address] | [place] [address] | | | SERVICES, CORE | [address] | | | + + + + + VITAMIN D, 25-HYDROXY, SERUM (11/20/2017 10:01 AM PDT) + +-------+ + + + | Component | Value | Ref Range | Performed | Pathologist | | | | | At | Signature | + +-------+ + + + | VITAMIN D | 75.2 | 30 - 80 ng/mL | [facility] [...] | + + + + + | [facility] | [address] | [place] [address] | | | SERVICES, CORE | [address] | | | + + + + + documented in this encounter Visit Diagnoses + + | Diagnosis | + + | Morbid obesity with BMI of 70 and over, adult (HCC) - Primary | + + | Diabetes mellitus type 2 without retinopathy (HCC) Type II or unspecified type |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 without mention of complication, not stated as uncontrolled | + + | Intertriginous candidiasis Candidiasis of skin and nails | + + | PCOS (polycystic ovarian syndrome) Polycystic ovaries | + + | AMARA treated with BiPAP | + + | Chronic diastolic heart failure (HCC) Chronic diastolic heart failure | + + | Essential hypertension | + + documented in this encounter
--- OUTSIDE RECORDS SUMMARY | ~2020-02-27 | XMS | Encounter Summary ---
Demographics + + + | Address | [address] | | | [place] [address] | + + + | Home Phone [...] + | Katalina Padilla | ECON | [address] | | | | | [place], [place] | | | | | [address] | | + + + + + | Ellie Vang | ECON | Unknown | | + + + + + Care Team Providers + +------+ + | Care Wet End Tester Name | Role | Phone | [...] Closed | | Gastroenterol | Diagnoses | Adnnie, | Gas Endo | | | | ogy | History of | Ion Colvin MD | [address] | | | | | Frandy-en-Y | [address] | [address] | | | | | gastric | Ave | Center for | | | | | bypass | [place], [place] | Health and | | | | | Nausea and | [address] | Healing, | | | | | vomiting, | Phone: | Building [address] | | | | | intractabili | | [place], [place] | | | | | ty of | Fax: | [address] | | | | | vomiting not | [phone] | Phone: | | | | | specified, | | [phone] | | | | | unspecified | | Fax: | | | | | vomiting | | [phone] | | | | | type | | | | | | | Decreased | [...] | | | | | | DILATION CO | | | | | | | UPPER GI | | | | | | | ENDOSCOPY,BI | | | | | | | OPSY CO UP | | | | | | [...] Health | Ion Pandey, | | | 2017 | | Center at [facility] [address] | MD [address] | | | | | [address] | [place], [place] | | | | | [facility] and | [address] | | | | | [facility] 2 | [phone] | | | | | [place], [place] | | | | | | [address] | | | | | | [phone] | | | +--------+ + + + [...] Ave | | | | | | [place], [place] | | | | | | [address] | | | | | | [phone] | | | | | | | | +--------+ + + + + | 04/04/ | Telephone-S | Surgery | Orquidea Cristobal, | | | 2019 | cheduled | | AMMUNITION STORAGE SUPERINTENDENT [address] | | | | | | [place], [place] | | | | | | [address] | | | | | | [phone] | | | | | | | [...]
--- OUTSIDE RECORDS SUMMARY | ~2020-02-27 | XMS | Encounter Summary ---
Demographics + + + | Address | [address] | | | [place] [address] | + + + | Home Phone [...] [place], [place] | | | | | [address] | | + + + + + | Ellie Vang | ECON | Unknown | | + + + + + Care Team Providers + +------+ + | Care Automatic Vulcanizing Lead Operator Name | Role | Phone | + +------+ + | Kenyatta Cardenas MD | PCP | | + +------+ + Encounter Details +--------+ + + + + | Date | Type | Department | Care Team | Description | +--------+ + + + + | 12/07/ | Procedure | [address] | | | | 2018 | Pass | [address] | | | | | | [place] | | | | | | [facility] Admitting | | | | | | Desk Located on the | | | | | | 9th floor | | | | | | [place], [place] | | | | | | [address] | | | +--------+ + + + [...] Ave | | | | | | [place], [place] | | | | | | [address] | | | | | | [phone] | | | | | | | | +--------+ + + + + | 04/04/ | Telephone-S | Surgery | Orquidea Cristobal, | | | 2019 | cheduled | | RN PHYSICIAN OFFICE [address] | | | | | | [place], [place] | | | | | | [address] | | | | | | [phone] | | | | | | | | +--------+ + + + + documented as of this encounter Visit Diagnoses Not on filedocumented in this encounter"
--- OUTSIDE RECORDS SUMMARY | ~2020-02-27 | XMS | Encounter Summary ---
Demographics + + + | Address | [address] | | | [place] [address] | + + + | Home Phone [...] [place], [place] | | | | | [address] | | + + + + + | Ellie Vang | ECON | Unknown | | + + + + + Care Team Providers + +------+ + | Care Section Leader And Machine Setter Name | Role | Phone [...] | | | | | | | [facility] | | | | | | | Health and | | | | | | | Healing, | | | | | | | Building [address] | | | | | | | [place], [place] | | | | | | | [address] | | | | | | | Phone: | | | | | | | [phone] | | | | | | | Fax: | | | | | | | [phone] | +--------+--------+ + + + + Encounter Details +--------+---------+ + + + | Date | Type | Department | Care Team | Description | +--------+---------+ + + + | 06/16/ | Office | Digestive Health | Olga Lidia Montanez, | Morbid obesity (HCC) | | 2012 | Visit | Center at [facility] [address] | [address] [facility] | (Primary Dx); Type | | | | S [facility] | [facility] [address] | 2 diabetes mellitus | | | | [facility] and | [place], [place] | (HCC) | | | | [place] [address] | [address] | | | | | [place], [place] | | | | | | [address] | | | | | | [phone] | | | +--------+---------+ + + + [...] Progress Notes Olga Lidia Montanez, RD - 06/16/2013 10:07 AM PSTFormatting of this note might be different fro m the original. Referring Provider: No Referring Provider Per Patient [facility]patient [facility], Pre-Bariatric Surgery Visit Follow-up diet consult prior to having Frandy En Y gastric bypass surgery. Documented Time of Visit: 10:06 to 10:32 (26 minutes abir-ac-hrxf with patient & friend) SUBJECTIVE: Is surprised she has gained weight; is disappointed. Still following her usual meal plan. H as d/c'd diet soda. Still struggling w/ eating out of boredom - choosing 100 kcal snacks but having ~3 of them at a time. Not as much emotional eating lately. Has been keeping food log s (on paper) - avg 4967-9788 kcal/d. Trying to increase activity. B: Atkins shake & Activia L: sandwich w/ low kcal bread, meat (low-fat), & low-fat cheese S: string cheese & 100 kcal pack of crackers D: protein, veggie. Last night: spencer cheeseburger (states this is rare) S: 100 kcal [...] handout (bariatric surgery notebook) with the avinash t on post-surgery diet progression, sample menus, behavior [...] provided. Olga Lidia Montanez RD, [place] Pager [phone] documented in this en counter Plan of Treatment +--------+ + + + + | Date | Type | Specialty | Care Team | Description | +--------+ + + + + | 03/22/ | Office | Cardiology | Randell Franks, | | | 2019 | Visit | | [address] | | | | | | [place], [place] | | | | | | [address] | | | | | | [phone] | | | | | | | | +--------+ + + + + | 04/04/ | Telephone-S | Surgery | Orquidea Cristobal, | | | 2020 | cheduled | | HOUSE VISITOR [address] | | | | | | [place], [place] | | | | | | [address] | | | | | | [phone] | | | | | | | [...]
--- OUTSIDE RECORDS SUMMARY | ~2020-02-27 | XMS | Encounter Summary ---
Demographics + + + | Address | [address] | | | [place] [address] | + + + | Home Phone [...] + | Katalina Padilla | ECON | [address] | | | | | [place], [place] | | | | | [address] | | + + + + + | Ellie Vang | ECON | Unknown | | + + + + + Care Team Providers + +------+ + | Care Aircraft Pneudraulics Repairer Name | Role | Phone | + [...] | | Essential | MD Randell | [place] | | | with ENTERPRISE INTEGRATION DEVELOPER | | hypertension | [address] | | | | | Right | [address] | [place] | | | | | heart | [place], [place] | [place], | | | | | failure | [address] | [place] | | | | | ([facility]) Type | Phone: | [address] | | | | | 2 diabetes | [phone] | Phone: | | | | | mellitus | Fax: | [phone] | | | | | without | [phone] | Fax: | | | | | complication | | [phone] | | | | | , with | | | | | | | long-term | | | | | | | current use | | | | | | | of insulin | | | | | | | ([facility]) | | | +--------+ + + + + + Encounter Details +--------+---------+ + + + | Date | Type | Department | Care Team | Description | +--------+---------+ + + + | 02/02/ | Office | Digestive Health | Yuli Childs [address] | Morbid obesity with | | 2017 | Visit | Center at [facility] [address] | [address] | BMI of 70 and over, | | | | [facility] | [place], | adult ([facility]) (Primary | | | | for Health and | [place] [address] | Dx); Type 2 | | | | Healing, [facility] 2 | [phone]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 | | | | [place], [place] | | without | | | | [address] | | complication, with | | | | [phone] | | long-term current | | | | | | use of insulin | | | | | | ([facility]); Chronic | | | | | | diastolic heart | | | | | | failure ([facility]) | +--------+---------+ + + + Social History [...] encounter Progress Notes Yuli Childs, RD - 02/02/2017 10:00 AM PDT Referring Provider: Fadi Goodrich DO Outpatient [facility], Pre-Bariatric Surgery Visit Follow-up diet consult prior to having Frandy-En-Y gastric bypass surgery or Sleeve Gastrecto my. Documented Time of Visit: 10:03 to 10:30 (27 minutes [id number] with patient) (1 hour ap point not available & traveling on separate days presets a financial burden) SUBJECTIVE: Last seen in clinic about 2 years ago. Has been dealing with medical issues: CH F (21 day hospital admission for diuresis), hernia, knees. Having issues with eating (nausea/vomiting), taking Zoftan. Was told that hernias are causi ng symptoms. Does not eat like she should, tries to eat painter mirror things and this does not help. Food Allergies: No Current Physical Activity: Was doing water aerobics until she got sick 1-2 years ago. B: Small bowl of cereal (1 cup + 1/2cup 1% milk) + Activia L: skips D: Meat, side dish (pasta), veggies (broccoli, green beans, broccoli) Beverages: Water, occ diet soda - Sprite Zero, iced tea with Splenda OBJECTIVE: Height: Ht Readings from Last 1 Encounters: 02/02/17 1.549 m (5' 1") Weight: Wt Readings from Last 2 Encounters: 02/02/17 182.1 kg (401 lb 6.4 oz) 01/01/17 (!) 174.6 kg (385 lb) 12/26/14 175.587 kg (387 lb 1.6 oz) 11/06/14 173.818 kg (383 lb 3.2 oz) 10/02/14 175.587 kg (387 lb 1.6 oz) 08/28/14 181.439 kg (400 lb) 04/14/13 174.136 kg (383 lb 14.4 oz) 10/07/12 195.5 kg (431 lb) BMI: 75.8 Weight change since last nutrition appointment: Weight stable since last RD visit in 2014. Gained 15lbs since visit with Dr. Franks last month. Fluids may be contributing. Past Medical History: Past Medical History: Diagnosis Date Abdominal [...] 70 and over in adult ([facility]) Myalgia and myositis Nausea Neck pain Numbness Osteoarthritis of knee Palpitations Pneumonia Shortness of breath Staphylococcal infection Stroke (HCC) TIA (transient ischemic attack) due to Bromocriptine Tinea corporis UTI (urinary tract infection) Medications: See list in Epic snap shot Medications for Diabetes: SSI (70/30), Tresiba. Checking CBG's Dietary Supplements: K, Mag, Vit C, Vit D Rx, Ca + D Labs: see Results Review for current labs (if available). Nutrition Diagnosis: Obesity as evidenced by BMI of 75.8. Pre-Surgery Diet: Provided written diet suggestions to help patient lose weight before surgery. -Eat within one hour of waking, then every 3-4 waking hours -Include protein with all meals & snacks - focused on this during out visit. Discussed bet ter options for breakfast and suggested she try a clear protein drink for lunch since nausea is an issue. -Use healthy plate model or frozen entree (~300 calories, < 600 mg sodium) at lunch & dinn er -Begin keeping daily food logs -Choose foods & beverages with < 14 g sugar & < 5 g fat per serving -Eliminate liquid calories and carbonation; limit caffeine to 16 oz/day. Ok to use a small amount of sf carbonated beverage is helps with nausea (prior to surgery) Behavior changes to practice before surgery to prepare for surgery. -Begin fluids from meals by 30 minutes before and after -Sip fluids throughout the day, aim for 64 oz/day (non-caloric, non-caffeinated, non-carbo nated) -Begin practicing mindful eating Patient's Comprehension: The patient is: Receptive Stage of change: Preparation Barrier(s) to education: No Learning style: Patient [...] post-surgery diet progression. 4. Call or send [employer] message to dietitian with any questions. Contact information was provided. Follow up with dietitian prior to surgery (take 2 Weight management classes as part of [facility] supervised diet). Yuli Childs RD, CNSC, LD [facility] Bariatrics [phone] documented in this enco unter Plan of Treatment +--------+ + + + + | Date | Type | Specialty | Care Team | Description | +--------+ + + + + | 03/22/ | Office | Cardiology | Randell Franks, | | | 2019 | Visit | | MD [address] | | | | | | [place], [place] | | | | | | [address] | | | | | | [phone] | | | | | | | | +--------+ + + + + | 04/04/ | Telephone-S | Surgery | Orquidea Cristobal, | | | 2019 | cheduled | | COMMERCIAL ROOFING ESTIMATOR [address] | | | | | | [place], [place] | | | | | | [address] | | | | | | [phone] | | | | | | | | +--------+ + + + + documented as of this encounter Procedures + +--------+ + + + | Procedure Name | Priori | Date/Time | Associated Diagnosis | Comments | | | ty | | | | + +--------+ + + + | OK MNT RE-ASSESSMNT | Routin | 02/02/2017 | Morbid obesity | | | X15MIN | e | 12:04 PM | with BMI of 70 and | | | | | PDT | over, adult ([facility]) | | | | | | Type 2 diabetes | | | | | | mellitus without | | | | | | complication, with | | | | | | long-term current | | | | | | use of insulin ([facility]) | | | | | | Chronic diastolic | | | | | | heart failure ([facility]) | | + +--------+ + + + documented in this encounter Visit Diagnoses + + | Diagnosis | + + | Morbid obesity with BMI of 70 and over, adult (HCC) - Primary | + + | Type 2 diabetes mellitus without complication, with long-term current use of insulin | | (HCC) | + + | Chronic diastolic heart failure (HCC) Chronic diastolic heart failure | + + documented in this encounter
--- OUTSIDE RECORDS SUMMARY | ~2020-02-27 | XMS | Encounter Summary ---
Demographics + + + | Address | [address] | | | [place] [address] | + + + | Home Phone [...] + | Katalina Padilla | ECON | [address] | | | | | [place], [place] | | | | | [address] | | + + + + + | Ellie Vang | ECON | Unknown | | + + + + + Care Team Providers + +------+ + | Care Manual Training Teacher Name | Role | Phone | + +------+ + | Kenyatta Cardenas MD | PCP | | + +------+ + Reason for Visit + + + | Reason | Comments | + + + | Refill Request | topiramate 100 mg oral tablet TID | + + + Encounter Details +--------+--------+ + + + | Date | Type | Department | Care Team | Description | +--------+--------+ + + + | 01/10/ | Refill | Cardiology | Randell Franks, | Refill Request | | 2020 | | Preventive at [facility] | MD [address] | (topiramate 100 mg | | | | [address] | [place], [place] | oral tablet TID) | | | | [facility] | [address] | | | | | and Healing, | [phone] | | | | | [address] | | | | | | [place], [place] | | | | | | [address] | | | | | | [phone] | | | +--------+--------+ + + + [...] Ave | | | | | | [place], [place] | | | | | | [address] | | | | | | [phone] | | | | | | | | +--------+ + + + + | 04/04/ | Telephone-S | Surgery | Orquidea Cristobal, | | | 2019 | sherrill | | LEARNING AND DEVELOPMENT ASSISTANT [address] | | | | | | [facility], [place] | | | | | | [address] | | | | | | [phone] | | | | | | | | +--------+ + + + + documented as of this encounter Visit Diagnoses Not on filedocumented in this encounter"
--- OUTSIDE RECORDS SUMMARY | ~2020-02-27 | XMS | Encounter Summary ---
Demographics + + + | Address | [address] | | | [place] [address] | + + + | Home Phone [...] + | Katalina Padilla | ECON | [address] | | | | | [place], [place] | | | | | [address] | | + + + + + | Ellie Vang | ECON | Unknown | | + + + + + Care Team Providers + +------+ + | Care International Marketing Coordinator Name | Role | Phone | [...] Hospital | | | | | | [place], [place] | | | | | | [address] | | | | | | [phone] | | | +--------+ + + + [...] [address] | | | | | | [place], [place] | | | | | | [address] | | | | | | [phone] | | | | | | | | +--------+ + + + + | 04/04/ | Telephone-S | Surgery | Orquidea Cristobal, | | | 2019 | sherrill | | MACHINE TOOL ELECTRICIAN [address] | | | | | | [place], [place] | | | | | | [address] | | | | | | [phone] | | | | | | | [...] | | | | Julia Blackman at [facility]. | | | | | | | [...] | | | | artery. A 4.1 Maori | | | | | | catheter was navigated | | | | | | over0.035" Donal coated | | | | | | SmartPillson guide wire into | | | | [...] | | + +---------+ + + | [facility] DEPARTMENT | | | | | RADIOLOGY | | | | + +---------+ + + documented in this encounter Visit Diagnoses Not on filedocumented in this encounter
--- OUTSIDE RECORDS SUMMARY | ~2020-02-27 | XMS | Encounter Summary ---
Demographics + + + | Address | [address] | | | [place] [address] | + + + | Home Phone [...] + | Katalina Padilla | ECON | [address] | | | | | [place], [place] | | | | | [address] | | + + + + + | Ellie Vang | ECON | Unknown | | + + + + + Care Team Providers + +------+ + | Care Arabic Linguist Name | Role | Phone | + [...] | | | | [address] | [place], [place] | | | | | [facility] and | [address] | | | | | [facility] 2 | [phone] | | | | | [place], [place] | | | | | | [address] | | | | | | [phone] | | | +--------+ + + + [...] Ave | | | | | | [facility] [place] | | | | | | [address] | | | | | | [phone] | | | | | | | | +--------+ + + + + | 04/04/ | Telephone-S | Surgery | Orquidea Cristobal, | | | 2019 | cheduled | | CURBING STONECUTTER [address] | | | | | | [place], [place] | | | | | | [address] | | | | | | [phone] | | | | | | | | +--------+ + + + + documented as of this encounter Visit Diagnoses Not on filedocumented in this encounter"
--- OUTSIDE RECORDS SUMMARY | ~2020-02-27 | XMS | Encounter Summary ---
Demographics + + + | Address | [address] | | | [place] [address] | + + + | Home Phone [...] + | Katalina Padilla | ECON | [address] | | | | | [place], [place] | | | | | [address] | | + + + + + | Ellie Vang | ECON | Unknown | | + + + + + Care Team Providers + +------+ + | Care Media Theorist And Author Of Name | Role | Phone | + +------+ + | Kenyatta Cardenas MD | PCP | | + +------+ + Encounter Details +--------+ + + + + | Date | Type | Department | Care Team | Description | +--------+ + + + + | 03/02/ | Musical Instrument Supervisor | Digestive Health | Keren Allen, | | | 2019 | | Center at [facility] [address] | AGACNP [address] | | | | | [address] [place] | [address] [facility] [place] | | | | | for Health and | [address] | | | | | Healing, [facility] 2 | | | | | | [place], [place] | | | | | | [address] | | | | | | | [...] Ave | | | | | | [place], [place] | | | | | | [address] | | | | | | [phone] | | | | | | | | +--------+ + + + + | 04/04/ | Telephone-S | Surgery | Orquidea Cristobal, | | | 2020 | abrahamled | | RESISTANCE BRAZER [address] | | | | | | [place], [place] | | | | | | [address] | | | | | | [phone] | | | | | | | | +--------+ + + + + documented as of this encounter Visit Diagnoses Not on filedocumented in this encounter"
--- OUTSIDE RECORDS SUMMARY | ~2020-02-27 | XMS | Encounter Summary ---
Demographics + + + | Address | [address] | | | [place] [address] | + + + | Home Phone [...] [place], [place] | | | | | [address] | | + + + + + | Ellie Vang | ECON | Unknown | | + + + + + Care Team Providers + +------+ + | Care Industrial Sweeper Cleaner Name | Role | Phone | [...] | | 2018 | | Center at [facility] [address] | MD [address] | | | | | [address] | [place], [place] | | | | | for Health and | [address] | | | | | [facility], [facility] 2 | [phone] | | | | | [place], [place] | | | | | | [address] | | | | | | [phone] | | | +--------+--------+ + + + [...] Visit | | MD [address] | | | | | | [place], [place] | | | | | | [address] | | | | | | [phone] | | | | | | | | +--------+ + + + + | 04/04/ | Telephone-S | Surgery | Orquidea Cristobal, | | | 2019 | cheduled | | CLEANER INDUSTRIAL [address] | | | | | | [place], [place] | | | | | | [address] | | | | | | [phone] | | | | | | | | +--------+ + + + + documented as of this encounter Visit Diagnoses Not on filedocumented in this encounter"
--- OUTSIDE RECORDS SUMMARY | ~2020-02-27 | XMS | Encounter Summary ---
Demographics + + + | Address | [address] | | | [place] [address] | + + + | Home Phone | | + + + | Preferred Language | Unknown | + + + | Marital Status | Single | + + + | Episcopal Affiliation | NON | + + + [...] [place], [place] | | | | | [address] | | + + + + + | Ellie Vang | ECON | Unknown | | + + + + + Care Team Providers + +------+ + | Care Database Consultant Name | Role | Phone | + +------+ + | Kenyatta Cardenas MD | PCP | | + +------+ + Encounter Details +--------+--------+ + + + | Date | Type | Department | Care Team | Description | +--------+--------+ + + + | 07/29/ | Travel | | | | | 2020 | | | | | +--------+--------+ + [...] Ave | | | | | | [place], [place] | | | | | | [address] | | | | | | [phone] | | | | | | | | +--------+ + + + + | 04/04/ | Telephone-S | Surgery | Orquidea Cristobal, | | | 2019 | cheduled | | PSYCHIATRY RESIDENT [address] | | | | | | [place], [place] | | | | | | [address] | | | | | | [phone] | | | | | | | | +--------+ + + + + documented as of this encounter Visit Diagnoses Not on filedocumented in this encounter"
--- OUTSIDE RECORDS SUMMARY | ~2020-02-27 | XMS | Encounter Summary ---
Demographics + + + | Address | [address] | | | [place] [address] | + + + | Home Phone | | + + + | Preferred Language | Unknown | + + + | Marital Status | Single | + + + | Roman Catholic Affiliation | NON | + + [...] + | Katalina Padilla | ECON | [address] | | | | | [place], [place] | | | | | [address] | | + + + + + | Ellie Vang | ECON | Unknown | | + + + + + Care Team Providers + +------+ + | Care Pharm Tech Name | Role | Phone | [...] | Digestive Health | MD [address] | | | | | Center at [facility] [address] | [facility] [place] | | | | | [address] | [address] | | | | | [facility] Health and | [phone] | | | | | [facility] 2 | | | | | | [facility] [place] | | | | | | [address] | | | | | | [phone] | | | +--------+ + + + [...] Ave | | | | | | [place], [place] | | | | | | [address] | | | | | | [phone] | | | | | | | | +--------+ + + + + | 04/04/ | Telephone-S | Surgery | Orquidea Cristobal, | | | 2019 | cheduled | | COMB WINDER [address] | | | | | | [place], [place] | | | | | | [address] | | | | | | [phone] | | | | | | | | +--------+ + + + + documented as of this encounter Visit Diagnoses Not on filedocumented in this encounter"
--- OUTSIDE RECORDS SUMMARY | ~2020-02-27 | XMS | Encounter Summary ---
Demographics + + + | Address | [address] | | | [place] [address] | + + + | Home Phone [...] + | Katalina Padilla | ECON | [address] | | | | | [place], [place] | | | | | [address] | | + + + + + | Ellie Vang | ECON | Unknown | | + + + + + Care Team Providers + +------+ + | Care Physical Security Specialist Name | Role | Phone | + +------+ + | Fadi Goodrich DO | PCP | | + +------+ + Encounter Details +--------+ + + + + | Date | Type | Department | Care Team | Description | +--------+ + + + + | 11/06/ | Abstract | Digestive Health | Shereen Georges, | | | 2014 | | Center at [facility] [address] | ACNP [address] | | | | [address] | Ave [place], [place] | | | | | for Health and | [address] | | | | | [facility], [facility] 2 | | | | | | [place], [place] | | | | | | [address] | | | | | | | [...] Ave | | | | | | [place], [place] | | | | | | [address] | | | | | | [phone] | | | | | | | | +--------+ + + + + | 04/04/ | Telephone-S | Surgery | Orquidea Cristobal, | | | 2019 | chesteve | | CARDIAC TECH [address] | | | | | | [place], [place] | | | | | | [address] | | | | | | [phone] | | | | | | | | +--------+ + + + + documented as of this encounter Visit Diagnoses Not on filedocumented in this encounter"
--- OUTSIDE RECORDS SUMMARY | ~2020-02-27 | XMS | Encounter Summary ---
Demographics + + + | Address | [address] | | | [place] [address] | + + + | Home Phone [...] + | Katalina Padilla | ECON | [address] | | | | | [place], [place] | | | | | [address] | | + + + + + | Ellie Vang | ECON | Unknown | | + + + + + Care Team Providers + +------+ + | Care Venetian Blind Machine Operator Name | Role | Phone [...] | Diabetes & | Morbid | Kathy M, QUALITY CONTROL TECH RAW MATERIALS | [address] | | | | Metabolism | obesity | [address] | Pavilion | | | | | (HCC) | [address], | Loop | | | | | Procedures | [address] | Physician's | | | | | CONSULT TO | [place], [place] | Pavilion | | | | | ENDO | [address] | Physician's | | | | | [address] | Phone: | Pavilion | | | | | | [phone] | [place], [place] | | | | | | Fax: | [address] | | | | | | [phone] | Phone: | | | | | | | [phone] | | | | | | | Fax: | | | | | | | [phone] | +--------+--------+ + + + + Encounter Details +--------+---------+ + + + | Date | Type | Department | Care Team | Description | +--------+---------+ + + + | 06/16/ | Office | Aniket Lopez | Randell Franks, | Type 2 diabetes | | 2012 | Visit | Diabetes Health | [address] | mellitus (HCC) | | | | Center at Physicians | [place], [place] | (Primary Dx); Morbid | | | | [address] | [address] | obesity (HCC) | | | | [address] | [phone] | | | | | Physician's Pavilion | | | | | | Physician's | | | | | | Pavilion [place], | | | | | | [place] [address] | | | | | | [phone] | | | +--------+---------+ + + + [...] [address] | | | | | | [place], [place] | | | | | | [address] | | | | | | [phone] | | | | | | | | +--------+ + + + + | 04/04/ | Telephone-S | Surgery | Orquidea Cristobal, | | | 2019 | sherrill | | TELECOM COORDINATOR [address] | | | | | | [place], [place] | | | | | | [address] | | | | | | [phone] | | | | | | | [...]
--- OUTSIDE RECORDS SUMMARY | ~2020-02-27 | XMS | Encounter Summary ---
Demographics + + + | Address | [address] | | | [place] [address] | + + + | Home Phone [...] + | Katalina Padilla | ECON | [address] | | | | | [place], [place] | | | | | [address] | | + + + + + | Ellie Vang | ECON | Unknown | | + + + + + Care Team Providers + +------+ + | Care Enrollment Consultant Name | Role | Phone | + +------+ + | Fadi Goodrich DO | PCP | | + +------+ + Encounter Details +--------+ + + + + | Date | Type | Department | Care Team | Description | +--------+ + + + + | 06/07/ | Hospital | Radiology/Imaging | Ronna Clarke, | | | 2018 | Encounter | Lab at [facility] [address] | ACNP [address] | | | | [address] [facility] | Ave [place], [place] | | | | | Health and Healing, | [address] | | | | | [place] [address] [facility] | [phone] | | | | | Floor [place], [place] | | | | | | [address] | | | | | | [phone] | | | +--------+ + + + [...] | | 0 | | | | [id number] | mouth two times | | | [...] Ave | | | | | | [facility] [place] | | | | | | [address] | | | | | | [phone] | | | | | | | | +--------+ + + + + | 04/04/ | Telephone-S | Surgery | Orquidea Cristobal, | | | 2019 | cheduled | | MACHINE CHOCOLATE MOLDER [address] | | | | | | [place], [place] | | | | | | [address] | | | | | | [phone] | | | | | | | | +--------+ + + + + documented as of this encounter Procedures + +--------+ + + + | Procedure Name | Priori | Date/Time | Associated Diagnosis | Comments | | | ty | | | | + +--------+ + + + | X-RAY MIRIAM CASTELLON | Routin | 06/07/2018 | History of | Results for this | | | e | 9:47 AM | Frandy-en-Y gastric | procedure are [...] in this encounter Results X-RAY MIRIAM CASTELLON (06/07/2018 9:47 AM PST) + + | Specimen | + + | | + + + + + | Narrative | Performed At | + + + | EXAM: Esophagram with industrial editor radiograph HISTORY: RYGB 03/01/2018, | [facility] | | vomiting/pain ever since COMPARISON: 04/27/2018 CT TECHNIQUE: | RADIOLOGY VOICE | | Peanut Sorter radiograph was performed. Single contrast exam of the esophagus, | RECOGNITION 2 | | gastric pouch, and gastrojejunostomy in upright positioning. | | | Radiation dose reduction technique was maximized where appropriate | | | using pulsed fluoroscopy and fluoro-store images. Fluoro Time 57 | | | second(s) FINDINGS: Peanut Sorter shows stone in the upper pole of [...] Service Account, Radiant Res In Interface - 06/07/2018 11:18 AM PST EXAM: Esophagram | | with industrial editor radiograph HISTORY: RYGB 03/01/2018, vomiting/pain ever since COMPARISON: | | 04/27/2018 CT TECHNIQUE: Peanut Sorter radiograph was performed. Single contrast exam of the | | esophagus, gastric pouch, and gastrojejunostomy in upright positioning. Radiation dose | | reduction technique was maximized where appropriate using pulsed fluoroscopy and | | fluoro-store images. Fluoro Time 57 second(s) FINDINGS:Peanut Sorter shows stone in the upper | | [...] presented. | | | |Final signature: Zaheer Eavns MD 06/07/2018 11:17 AM | |Preliminary: Evy [...]
--- OUTSIDE RECORDS SUMMARY | ~2020-02-27 | XMS | Encounter Summary ---
Demographics + + + | Address | [address] | | | [place] [address] | + + + | Home Phone [...] + | Katalina Padilla | ECON | [address] | | | | | [place], [place] | | | | | [address] | | + + + + + | Ellie Vang | ECON | Unknown | | + + + + + Care Team Providers + +------+ + | Care Daylight Driller Name | Role | Phone | + +------+ + | Fadi Goodrich DO | PCP | | + +------+ + Encounter Details +--------+ + + + + | Date | Type | Department | Care Team | Description | +--------+ + + + + | 12/29/ | Abstract | Digestive Health | Hernandez Brian, | | | 2012 | | [place] [address] | [address] [facility] | | | | | [facility] | [facility] | | | | | for [facility] and | [place], [place] | | | | | [facility] 2 | [address] | | | | | [place], [place] | [phone] | | | | | [address] | | | | | | [phone] | | | +--------+ + + + [...] Ave | | | | | | [place], [place] | | | | | | [address] | | | | | | [phone] | | | | | | | | +--------+ + + + + | 04/04/ | Telephone-S | Surgery | Orquidea Cristobal, | | | 2019 | sherrill | | PRODUCTION LABORER [address] | | | | | | [place], [place] | | | | | | [address] | | | | | | [phone] | | | | | | | | +--------+ + + + + documented as of this encounter Visit Diagnoses Not on filedocumented in this encounter"
--- OUTSIDE RECORDS SUMMARY | ~2020-02-27 | XMS | Encounter Summary ---
Demographics + + + | Address | [address] | | | [place] [address] | + + + | Home Phone [...] + | Katalina Padilla | ECON | [address] | | | | | [place], [place] | | | | | [address] | | + + + + + | Ellie Vang | ECON | Unknown | | + + + + + Care Team Providers + +------+ + | Care Special Needs Nanny Name | Role | Phone | [...] floor | | | | | | [place], [place] | | | | | | [address] | | | | | | [phone] | | | +--------+------+ + + + [...] Ave | | | | | | [place], [place] | | | | | | [address] | | | | | | [phone] | | | | | | | | +--------+ + + + + | 04/04/ | Telephone-S | Surgery | Orquidea Cristobal, | | | 2019 | cheduhipolito | | ABRASIVE MIXER [address] | | | | | | [place], [place] | | | | | | [address] | | | | | | [phone] | | | | | | | [...] | + + + + + | [facility] | [address] [facility] | [place] [address] | | | SERVICES, CORE | PARK [...] [facility] | [address] | [place] [address] | | | SERVICES, CORE | PARK [...] | + + + + + | [facility] | [address] | [place] [address] | | | SERVICES, SPECIAL | CLARENCE [...]
--- OUTSIDE RECORDS SUMMARY | ~2020-02-27 | XMS | Encounter Summary ---
Demographics + + + | Address | [address] | | | [place] [address] | + + + | Home Phone [...] + | Katalina Padilla | ECON | [address] | | | | | [place], [place] | | | | | [address] | | + + + + + | Ellie Vang | ECON | Unknown | | + + + + + Care Team Providers + +------+ + | Care Pin Machine Tender Name | Role | Phone | + +------+ + | Fadi Goodrich DO | PCP | | + +------+ + Encounter Details +--------+ + + + + | Date | Type | Department | Care Team | Description | +--------+ + + + + | 10/05/ | Abstract | Digestive Health | Hernandez Brian, | | | 2012 | | [place] [address] | [address] [facility] | | | | | [address] [facility] | [facility] [place] [facility] | | | | | for Health and | [place], [place] | | | | | [facility] 2 | [address] | | | | | [place], [place] | [phone] | | | | | [address] | | | | | | [phone] | | | +--------+ + + + [...] Ave | | | | | | [place], [place] | | | | | | [address] | | | | | | [phone] | | | | | | | | +--------+ + + + + | 04/04/ | Telephone-S | Surgery | Orquidea Cristobal, | | | 2019 | cheduled | | OUTSIDE PLANT FIELD ENGINEER [address] | | | | | | [place], [place] | | | | | | [address] | | | | | | [phone] | | | | | | | | +--------+ + + + + documented as of this encounter Visit Diagnoses Not on filedocumented in this encounter"
--- OUTSIDE RECORDS SUMMARY | ~2020-02-27 | XMS | Encounter Summary ---
Demographics + + + | Address | [address] | | | [place] [address] | + + + | Home Phone [...] [place], [place] | | | | | [address] | | + + + + + | Ellie Vang | ECON | Unknown | | + + + + + Care Team Providers + +------+ + | Care Director Ehs Name | Role | Phone | + [...] | | | | | | | [address] | | | | | | [address] | | | | | | | Physicians | | | | | | | Pavilion, 2nd | | | | | | | Floor | | | | | | | [place], [place] | | | | | | | [address] | | | | | | | Phone: | | | | | | | [phone] | | | | | | | Fax: | | | | | | | [phone] | +--------+--------+ + + + + Encounter [...] | | | [facility] [address] | or gangrene (Primary | | | | [address] | [place], [place] | Dx) | | | | Physicians [place], | [address] | | | | | 2nd Floor | [phone] | | | | | [facility] [place] | | | | | | [address] | | | | | | [phone] | | | +--------+---------+ + + + [...] MD,MPH - 11/05/2015 2:09 PM PDT [facility] Department of Surgery EGS/TRAUMA Surgery Clinic [...] 500 mg by mouth once daily. CALCIUM CRB&[id number]-KUX86-GENIS ORAL Take 1 tablet by mouth two [...] answered. Christian Rocha MD MPH FACS [facility] assistant guest services manager Trauma, Critical Care & Acute Care Surgery [facility] documented in thi s encounter Plan of Treatment +--------+ + + + + | Date | Type | Specialty | Care Team | Description | +--------+ + + + + | 03/22/ | Office | Cardiology | Randell Franks, | | | 2019 | Visit | | [address] | | | | | | [place], [place] | | | | | | [address] | | | | | | [phone] | | | | | | | | +--------+ + + + + | 04/04/ | Telephone-S | Surgery | Orquidea Cristobal, | | | 2019 | cheduled | | WORLD RENOWNED CHEF AND RESTAURANT OWNER [address] | | | | | | [facility], [place] | | | | | | [address] | | | | | | [phone] | | | | | | | | +--------+ + + + + documented as of this encounter Visit Diagnoses + + | Diagnosis | + + | Ventral hernia without obstruction or gangrene - Primary Ventral hernia, unspecified, | | without mention of obstruction or gangrene | + + documented in this encounter"
--- OUTSIDE RECORDS SUMMARY | ~2020-02-27 | XMS | Encounter Summary ---
Demographics + + + | Address | [address] | | | [place] [address] | + + + | Home Phone [...] + | Katalina Padilla | ECON | [address] | | | | | [place], [place] | | | | | [address] | | + + + + + | Ellie Vang | ECON | Unknown | | + + + + + Care Team Providers + +------+ + | Care Manager Video Name | Role | Phone | + [...] | Pain | Diagnoses | Analisa Georges Household Worker Psych | | | | Management | Morbid | DANIELLE BrunerP | Chh1 [address] | | | | | obesity with | [address] | | | | | BMI of [address] | Center for | | | | | and over, | [place], [place] | Health and | | | | | adult (HCC) | [address] | Healing, | | | | | Procedures | Phone: | Building | | | | | CONSULT TO | [phone] | 1,15th Floor | | | | | PAIN | Fax: | [place], [place] | | | | | MANAGEMENT | [phone] | [address] | | | | | [place] | | Phone: | | | | | PSYCHIATRIC | | [phone] | | | | | DIAGNOSTIC | | Fax: | | | | | EVAL, NO MED | | [phone] | | | | | [facility] [place] | | | | | | | [...] | Bariatri Surg | | | with MINERAL SURVEYOR | | hypertension | [address] | [address] | | | | | Right | [address] | [address] | | | | | heart | [place], [place] | [place] for | | | | | failure | [address] | Health and | | | | | ([facility]) Type | Phone: | Healing, | | | | | 2 diabetes | [phone] | Building 2 | | | | | mellitus | Fax: | [place], [place] | | | | | without | [phone] | [address] | | | | | complication | | Phone: | | | | | , with | | [phone] | | | | | long-term | | Fax: | | | | | current use | | [phone] | | | | | of insulin | | | | | | | ([facility]) | | | | | | | [...] Georges, | Morbid obesity with | | 2016 | Visit | Center at [facility] [address] | [facility] [address] | BMI of 70 and over, | | | | [address] | Ave [facility] [place] | adult ([facility]) (Primary | | | | for Health and | [address] | Dx); Chronic | | | | Healing, Building 2 | | diastolic heart | | | | [place], [place] | | failure (HCC); | | | | [address] | | Immobility; Severe | | | | | | [...] retinopathy | | | | | | ([facility]); | | | | | | Hyperlipidemia, [...] encounter Patient Instructions Patient Instructions Shereen Georges, [facility] - 02/02/2017 9:00 AM PDTPlan: The [...] to your private appointme nt with the dyeing machine back tender. These classes will be scheduled apporoximately 1 month apart to allow time for you to put the teaching into action. Please call [phone] + Labs needed: Pre op: drug screen [...] are done + EKG: Please Have your silviculturist do the eval and send it to us + Pre-op Psychological Evaluation: Your referral is at [facility], The Pain Management Office will call you in the next week to schedule. + Cardiology Consult: A cardiology provider needs to evaluate your cardiac function and le t us know if you can proceed with with bariatric surgery. Please have them send their notes and EKG + . Insurance requirements: your insurance requires : a 6 month wait Leanne: Shereen Pinto February Class 1 June Class [...] be safely completed. + Sign up for [employer] so that we can communicate easily back and forth Once the above list is completed and copies have been received by our office, we will submi t for insurance authorization then schedule with the surgeon. KAIN De Dios DNP, HILDA Nurse Practitioner for Bariatric Surgery [facility] | [address] | [place], [place] | [address] | documented in this encounter Progress Notes Shereen Georges ACNP - 02/02/2017 9:00 AM PDTFormatting of this note might be different f rom the original. BARIATRIC INITIAL VISIT Provider: KAIN De Dios DNP, HILDA Referring Provider: Fadi Goodrich DO Reason for [...] t loss. Consults: Cardiology: Dr. Edson Livingston [facility] Ceramic Designer: Nickie : [facility] But comes to magen Animal Care Supervisor at [facility]: Dr. Zhong for weight loss medication Mormon or cultural reason you would refuse blood [...] once daily., Disp : , Rfl: CALCIUM CRB&OVF-P7-[id number]-GENIS ORAL, Take 2 tablets by mouth two [...] rhinitis Anemia Anxiety Bipolar disorder ([facility]) Chronic wound infection of abdomen from 2010 Cough Depression Diverticulitis of colon Dizziness Glaucoma Heart burn Hemorrhoids Hernia of abdominal wall Incisional hernia, incarcerated 2012 Insomnia Irregular periods Kidney stone Leaking of urine Leg sore Lymphedema Morbid obesity with body mass index of 70 and over in adult ([facility]) Myalgia and myositis Nausea Neck pain Numbness Osteoarthritis of knee Palpitations Pneumonia Shortness of breath Staphylococcal infection Stroke ([facility]) TIA (transient ischemic attack) due to Bromocriptine Tinea corporis UTI (urinary tract infection) Past Surgical History Procedure Laterality Date Tonsillectomy and adenoidectomy Appendectomy, open 2010 Umbilical hernia repair 2010 Treatment of ankle fracture with screws remaining Incision and drainage of wound abscess x2 midline transverse wound s/p open appendectomy 2010 Ventral hernia repair 10/2012 Dr. Andie Brian Incisional hernia repair 03/01/2015 [facility]/ Dr. Cantu. Primary fascial closure and [...] History Narrative Updated 11/09/15 She lives in [place] with her mother and her sister (also her caregiver) lives in an [facility]. She has 2 grandchildren (age 4 and 7) who live with her daughter and son-in-law Her boyfriend lives in [place] Family History Problem Relation Heart Attack Father [...] extre mity edema, hypertension, hyperlipidemia. Denies CHF, [place], ischemic heart disease, or pulmon nikki hypertension. [...] years without success. She qualifies for medically [facility] weight loss surgery to control co-morbidities. Elzbieta [...] management, and was referred as well to crowning inspector. Plan: Request that her silviculturist clear her, and make recommendations 3. Mammogram: [...] to your private appointme nt with the dyeing machine back tender. These classes will be scheduled apporoximately 1 month apart to allow time for you to put the teaching into action. Please call [phone] + Labs needed: lipids, CBC, CMP, TSH, A1C, PTH, Vitamin D25, Ferritin Please go to the 3r d floor and have these labs done. + Pap test: Please obtain thru your primary care and we want to see the lab result from e PAP smear. (not the note from your provider) Due 2018 + Mammogram: Have your primary care provider order, and send the radiology report to us by fax. + Your A1C must be less than 8 before surgery + You will be presented at our High Risk Surgical Committee: once all the consults are done + EKG: Please Have your silviculturist do the eval and send it to us + Pre-op Psychological Evaluation: Your referral is at [facility], The Pain Management Office will call you [...] be safely completed. + Sign up for [employer] so that we can communicate easily back and forth Once the above list is completed and copies have been received by our office, we will submi t for insurance authorization then schedule with the surgeon. KAIN De Dios DNP, SALESPERSON WIGS Nurse Practitioner for Bariatric Surgery [facility] | [address] | [place], [place] | [address] | documented in this encounter Plan of Treatment +--------+ + + + + | Date | Type | Specialty | Care Team | Description | +--------+ + + + + | 03/22/ | Office | Cardiology | Randell Zhong, | | | 2019 | Visit | | MD [address] | | | | | | [place], [place] | | | | | | [address] | | | | | | [phone] | | | | | | | | +--------+ + + + + | 04/04/ | Telephone-S | Surgery | Orquidea Cristobal, | | | 2019 | cheduled | | SALESPERSON WIGS [address] | | | | | | [place], [place] | | | | | | [address] | | | | | | [phone] | | | | | | | [...]
--- OUTSIDE RECORDS SUMMARY | ~2020-02-27 | XMS | Encounter Summary ---
Demographics + + + | Address | [address] | | | [place] [address] | + + + | Home Phone | | + + + | Preferred Language | Unknown | + + + | Marital Status | | + + + | Episcopalian Affiliation | Unknown | + + + | Race | Unknown | + + + | Ethnic Group | Unknown | + + + Author + + + | Author | [facility] | | | and [place]ana | + + + | Organization | [facility] | | | [...] Team Providers + +------+ + | Care Mcat Instructor Name | Role | Phone | + +------+ + PCP | Unavailable | + +------+ + Encounter Details +--------+ + + + + | Date | Type | Department | Care Team | Description | +--------+ + + + + | 12/23/ | Orders Only | [facility] | Conversion | | | 2017 | | NEPHROLOGY [place] | Transaction, | | | | | [address] | Provider Unknown | | | | | [address] [place], [place] | | | | | | [address] | (Fax) | | | | | [phone] | | | +--------+ + + + [...] [place], | | | 2019 | Office | | MD Saumya MOE | | | | Visit | | [address] | | | | | | [place] [address] | | | | | | [phone] | | | | | | | | +--------+ + + + + | 03/29/ | Office | Cardiology | Sulema Altamirano | | | 2019 | Visit | | HILDA [address] | | | | | | [address] | | | | | | [place] [address] | | | | | | [phone] | | | | | | | | +--------+ + + + + documented as of this encounter Procedures + +--------+ + + + | Procedure Name | Priori | Date/Time | Associated Diagnosis | Comments | | | ty | | | | + +--------+ + + + | BASIC METABOLIC | Routin | 12/23/2016 | | Results for this | | PANEL | e | 2:00 PM | | procedure are in the | | | | PDT | | results section. | + +--------+ + + + documented in this encounter Results Basic Metabolic Panel (12/23/2016 2:00 PM PDT) + +---------+ + + + | Component | Value | Ref Range | Performed | Pathologist | | | | | At | Signature | + +---------+ + + + | Glucose, | 135 (A) | 70 - 100 mg/dL | EXTERNAL | | | Fasting | | | LAB | | + +---------+ + + + | BUN | 20 | 6 - 23 mg/dL | EXTERNAL | | | | | | LAB | | + +---------+ + + + | Creatinine | 0.94 | 0.60 - 1.35 | EXTERNAL | | | | | mg/dL | LAB | | + +---------+ + + + | BUN/Creatin | 21.3 | 6.0 - 28.6 | EXTERNAL | | | ine Ratio | | | LAB | | + +---------+ + + + | Calcium | 9.6 | 8.4 - 10.2 | EXTERNAL | | | | | mg/dL | LAB | | + +---------+ + + + | Na | 138 | 132 - 143 | EXTERNAL | | | | | mmol/L | LAB | | + +---------+ + + + | K | 4.3 | 3.6 - 5.1 | EXTERNAL | | | | | mmol/L | LAB | | + +---------+ + + + | Cl | 102 | 95 - 112 mmol/L | EXTERNAL | | | | | | LAB | | + +---------+ + + + | CO2 | 23 | 19 - 31 mmol/L | EXTERNAL | | | | | | LAB | | + +---------+ + + + | Anion Gap | 17.3 | 7 - 21 mmol/L | EXTERNAL | | | | | | LAB | | + +---------+ + + + | Estimated | 66 | mg/dL | EXTERNAL | | | [...]
--- OUTSIDE RECORDS SUMMARY | ~2020-02-27 | XMS | Encounter Summary ---
Demographics + + + | Address | [address] | | | [place] [address] | + + + | Home Phone [...] + | Katalina Padilla | ECON | [address] | | | | | [place], [place] | | | | | [address] | | + + + + + | Ellie Vang | ECON | Unknown | | + + + + + Care Team Providers + +------+ + | Care Clinical Safety Specialist Name | Role | Phone | [...] | 2015 | Visit | Center at [facility] [address] | | (Primary Dx) | | | | [address] [facility] | | | | | | for Health and | | | | | | [facility], Building [address] | | | | | | [facility] [place] | | | | | | [address] | | | | | | [phone] | | | +--------+---------+ + + + [...] of Class: 2:00 until 3:00 (60 minutes msaq-di-luyl with patient) OBJECTIVE: Height: Ht Readings from [...] or sharing information. Yes Yuli Childs RD, [facility], [place] Pager# [phone] documented in this enc ounter Plan of Treatment +--------+ + + + + | Date | Type | Specialty | Care Team | Description | +--------+ + + + + | 03/22/ | Office | Cardiology | Randell Franks, | | | 2019 | Visit | | [address] | | | | | | [place], [place] | | | | | | [address] | | | | | | [phone] | | | | | | | | +--------+ + + + + | 04/04/ | Telephone-S | Surgery | Orquidea Cristobal, | | | 2019 | sherrill | | MANAGER HEALTH [address] | | | | | | [place], [place] | | | | | | [address] | | | | | | [phone] | | | | | | | | +--------+ + + + + documented as of this encounter Visit Diagnoses + + | Diagnosis | + + | Morbid obesity (HCC) - Primary Morbid obesity | + + documented in this encounter
--- OUTSIDE RECORDS SUMMARY | ~2020-02-27 | XMS | Encounter Summary ---
Demographics + + + | Address | [address] | | | [place] [address] | + + + | Home Phone [...] [place], [place] | | | | | [address] | | + + + + + | Ellie Vang | ECON | Unknown | | + + + + + Care Team Providers + +------+ + | Care Operations Manager Name | Role | Phone | + +------+ + | Fadi Goodrich DO | PCP | | + +------+ + Encounter Details +--------+ + + + + | Date | Type | Department | Care Team | Description | +--------+ + + + + | 03/28/ | Abstract | Cardiology | Randell Franks, | | | 2014 | | Preventive at [facility] | MD [address] | | | | | [address] | [place], [place] | | | | | [facility] | [address] | | | | | and [place], | [phone] | | | | | [address] | | | | | | [facility] [place] | | | | | | [address] | | | | | | [phone] | | | +--------+ + + + [...] Ave | | | | | | [place], [place] | | | | | | [address] | | | | | | [phone] | | | | | | | | +--------+ + + + + | 04/04/ | Telephone-S | Surgery | Orquidea Cristobal, | | | 2019 | cheduled | | CHAIN MENDER [address] | | | | | | [place], [place] | | | | | | [address] | | | | | | [phone] | | | | | | | | +--------+ + + + + documented as of this encounter Visit Diagnoses Not on filedocumented in this encounter"
--- OUTSIDE RECORDS SUMMARY | ~2020-02-27 | XMS | Encounter Summary ---
Demographics + + + | Address | [address] | | | [place] [address] | + + + | Home Phone [...] [place], [place] | | | | | [address] | | + + + + + | Ellie Vang | ECON | Unknown | | + + + + + Care Team Providers + +------+ + | Care Animal Husbandry Teacher Name | Role | Phone | [...] | BROCK Roldan | | | with DIRECTOR CHECK | | hypertension | [address] | | | | | Right | [address] | [place] | | | | | heart | [place], [place] | [place], | | | | | failure | [address] | [place] | | | | | ([facility]) Type | Phone: | [phone] | | | | | 2 diabetes | [phone] | Phone: | | | | | mellitus | Fax: | [phone] | | | | | without | [phone] | Fax: | | | | | complication | | [phone] | | | | | , with | | | | | | | long-term | | | | | | | current use | | | | | | | of insulin | | | | | | | ([facility]) | | | +--------+ + + + + + Encounter Details +--------+---------+ + + + | Date | Type | Department | Care Team | Description | +--------+---------+ + + + | 04/01/ | Office | Digestive Health | Dione Andre, | History of [place]-Y | | 2018 | Visit | Center at [facility] [address] [facility] | gastric bypass | | | | [facility] | [facility] [address] | (Primary Dx); | | | | for [place] and | [place], [place] | 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[facility], [facility] | [address] | with insulin therapy | | | | [place], [place] | [phone] | ([facility]) | | | | [address] | | | | | | [phone] | | | +--------+---------+ + + + [...] as of this encounter Progress Notes Dione Andre RD - 04/01/2018 10:30 AM PDTFormatting of this note might be different fro m the original. Nutrition Counseling: Post-op Bariatric Surgery Follow-Up Patient referred by: Randell Franks MD [address] [place] [address] Documented time of visit: 10:33 to 10:55 (22 minutes btif-we-ytrk with patient) Surgery: Gastric Bypass Date of [...] vagina Allergic rhinitis Anemia Anxiety Bipolar disorder ([facility]) Chronic wound infection of abdomen from 2010 Cough Depression Diverticulitis of colon Dizziness Glaucoma Heart burn Hemorrhoids Hernia of abdominal wall Incisional hernia, incarcerated 2012 Insomnia Irregular periods Kidney stone Leaking of urine Leg sore Lymphedema Morbid obesity with body mass index of 70 and over in adult ([facility]) Myalgia and myositis Nausea Neck pain Numbness Osteoarthritis of knee Palpitations Pneumonia Shortness of breath Staphylococcal infection Stroke ([facility]) TIA (transient ischemic attack) due to Bromocriptine Tinea corporis UTI (urinary tract infection) Food logs: Yes-pen and paper Food choices: ground chicken, eggs, creamed soups (mushroom or tomato), cream of wheat occ, cottage cheese, danish yogurt-light and fit, protein bar from [employer]. Unable to keep protei n shakes down. Fluid choices: water-4-5 bottles per day Supplementation: Flinstones, iron, vitamin D, vitamin C, Citracal supplement x 2 in the mor eusebio and 2 at night, magnesium, potassium, I18-xoxxmjia today Assessment: Vomiting likely due to volume [...] multivitamin & mineral (with iron) supplement, 2/day -6361-8676 mg calcium citrate with vitamin D/day (take in divided doses, not within 2 hour s of multivitamin or iron supplement) -500 mcg/day sublingual B12 supplement (or monthly injections) Continued to reinforce importance of mindful eating. Continue to increase physical activity. Follow up in [address],[place] Pager# [phone] Phone: [phone] documented in this en counter Plan of Treatment +--------+ + + + + | Date | Type | Specialty | Care Team | Description | +--------+ + + + + | 03/22/ | Office | Cardiology | Randell Franks, | | | 2019 | Visit | | [address] | | | | | | [place], [place] | | | | | | [address] | | | | | | [phone] | | | | | | | | +--------+ + + + + | 04/04/ | Telephone-S | Surgery | Orquidea Cristobal, | | | 2019 | cheduled | | MANAGER DELIVERY [address] | | | | | | [place], [place] | | | | | | [address] | | | | | | [phone] | | | | | | | | +--------+ + + + + documented as of this encounter Procedures + +--------+ + + + | Procedure Name | Priori | Date/Time | Associated Diagnosis | Comments | | | ty | | | | + +--------+ + + + | DC MNT RE-ASSESSMNT | Routin | 04/01/2018 | [...]
--- OUTSIDE RECORDS SUMMARY | ~2020-02-27 | XMS | Encounter Summary ---
Demographics + + + | Address | [address] | | | [place] [address] | + + + | Home Phone [...] + | Katalina Padilla | ECON | [address] | | | | | [place], [place] | | | | | [address] | | + + + + + | Ellie Vang | ECON | Unknown | | + + + + + Care Team Providers + +------+ + | Care Preform Machine Operator Name | Role | Phone [...] | Tiny, | | | | | [place] EST | Fadi Person DO | MD Randell | | | | | PATIENT | [address] | [address] | | | | | [address] | [address] | Ave | | | | | | [place], | [place], [place] | | | | | | [place] [address] | [address] | | | | | | Phone: | Phone: | | | | | | [phone] | [phone] | | | | | | Fax: | Fax: | | | | | | [phone] | [phone] | +--------+--------+ + + + + Encounter Details +--------+---------+ + + + | Date | Type | Department | Care Team | Description | +--------+---------+ + + + | 04/03/ | Office | Cardiology | Randell Franks, | Morbid obesity (HCC) | | 2014 | Visit | Preventive at [facility] | [address] | (Primary Dx); Type | | | | [address] | [place], [place] | 2 diabetes mellitus | | | | [facility] | [address] | without complication | | | | and Healing, | [phone] | ([facility]) | | | | [address] | | | | | | [place], [place] | | | | | | [address] | | | | | | [phone] | | | +--------+---------+ + + + [...] 500 mg by mouth once daily. CALCIUM CRB&WTA-[id number]-YEF87-GENIS ORAL Take 1 tablet by mouth two [...] Tab by mouth two times daily. (Patient taki ng differently: Take 1 tablet by mouth [...] and T2DM. Since I saw Ms. Livia monge, continues on phentermine and 100 mg topiramate BID with good appetite suppression an d no side effects. She reports undergoing a repeat heania repair 1 month ago without compli cations. The lastest recommendation from the Bariatric Surgery group is for her to lose "an other 50 lbs." No specific target weight has been documented, but if we use her last [facility] weight of 410 lbs, this would put her at 360 lbs before consideration for RYGBP. She is working with the bariatric surgery valve tester to try to achieve this. She states [...] visit Diet: healthy, working with Bar Surg valve tester Exercise: "I walk everywhere." ROS: No CP, [...] 2019 | Visit | | [address] | | | | | | [place], [place] | | | | | | [address] | | | | | | [phone] | | | | | | | | +--------+ + + + + | 04/04/ | Telephone-S | Surgery | Orquidea Cristobal, | | | 2019 | cheduhipolito | | CASE FITTER [address] | | | | | | [place], [place] | | | | | | [address] | | | | | | [phone] | | | | | | | | +--------+ + + + + documented as of this encounter Visit Diagnoses + + | Diagnosis | + + | Morbid obesity (HCC) - Primary Morbid obesity | + + | Type 2 diabetes mellitus without complication (HCC) | + + documented in this encounter
--- OUTSIDE RECORDS SUMMARY | ~2020-02-27 | XMS | Encounter Summary ---
Demographics + + + | Address | [address] | | | [place] [address] | + + + | Home Phone [...] + | Katalina Padilla | ECON | [address] | | | | | [place], [place] | | | | | [address] | | + + + + + | Ellie Vang | ECON | Unknown | | + + + + + Care Team Providers + +------+ + | Care Sap Ppm Consultant Name | Role | Phone | [...] | at [facility] [address] | SWITCHGEAR REPAIRER [address] [facility] | | | | [facility] | [place], [place] | | | | | Health and Healing, | [address] | | | | | [place] [address] [facility] | [phone] | | | | | Floor [place], [place] | | | | | | [address] | | | | | | [phone] | | | +--------+ + + + [...] | 2019 | Visit | | [address] | | | | | | [place], [place] | | | | | | [address] | | | | | | [phone] | | | | | | | | +--------+ + + + + | 04/04/ | Telephone-S | Surgery | Orquidea Cristobal, | | | 2020 | cheloveled | | PROP SAWYER [address] | | | | | | [place] | | | | | | [address] | | | | | | [phone] | | | | | | | | +--------+ + + + + documented as of this encounter Visit Diagnoses Not on filedocumented in this encounter"
--- OUTSIDE RECORDS SUMMARY | ~2020-02-27 | XMS | Encounter Summary ---
Demographics + + + | Address | [address] | | | [place] [address] | + + + | Home Phone [...] [place], [place] | | | | | [address] | | + + + + + | Ellie Vang | ECON | Unknown | | + + + + + Care Team Providers + +------+ + | Care Transportation Assistant Name | Role | Phone | + +------+ + | Fadi Goodrich DO | PCP | | + +------+ + Encounter Details +--------+ + + + + | Date | Type | Department | Care Team | Description | +--------+ + + + + | 10/27/ | Telephone | Pain Center at [facility] | Leslie Mistry, | | | 2017 | | [address] | PhD [address] [facility] | | | | | [facility] | [facility] | | | | | and Healing, | [place], [place] | | | | | [facility] | [address] | | | | | Floor [place], [place] | [phone] | | | | | [address] | | | | | | [phone] | | | +--------+ + + + [...] Ave | | | | | | [place], [place] | | | | | | [address] | | | | | | [phone] | | | | | | | | +--------+ + + + + | 04/04/ | Telephone-S | Surgery | Orquidea Cristobal, | | | 2019 | cheduled | | TRAVELING SECRETARY [address] | | | | | | [place], [place] | | | | | | [address] | | | | | | [phone] | | | | | | | | +--------+ + + + + documented as of this encounter Visit Diagnoses Not on filedocumented in this encounter"
--- OUTSIDE RECORDS SUMMARY | ~2020-02-27 | XMS | Encounter Summary ---
Demographics + + + | Address | [address] | | | [place] [address] | + + + | Home Phone [...] + | Katalina Padilla | ECON | [address] | | | | | [place], [place] | | | | | [address] | | + + + + + | Ellie Vang | ECON | Unknown | | + + + + + Care Team Providers + +------+ + | Care Head Concierge Name | Role | Phone | + +------+ + | Fadi Goodrich DO | PCP | | + +------+ + Encounter Details +--------+------+ + + + | Date | Type | Department | Care Team | Description | +--------+------+ + + + | 11/20/ | Lab | Laboratory at [facility] | | Morbid obesity with | | 2017 | | [address] | | BMI of 70 and over, | | | [facility] | | adult ([facility]); | | | | and Healing, | | 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[address] | | 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[place], [place]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 ([facility]); | | | | [address] | | Type 2 diabetes | | | | [phone] | | mellitus without | | | | | | complication, with | | | | | | long-term current | | | | | | use of insulin ([facility]) | +--------+------+ + + + [...] Ave | | | | | | [place], [place] | | | | | | [address] | | | | | | [phone] | | | | | | | | +--------+ + + + + | 04/04/ | Telephone-S | Surgery | Orquidea Cristobal, | | | 2019 | cheduled | | COMMUNICATION AND OUTREACH MANAGER [address] | | | | | | [place], [place] | | | | | | [address] | | | | | | [phone] | | | | | | | [...] | | | PDT | over, adult ([facility]) | results section. | | | | | 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| | 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 ([facility]) | | + +--------+ + + + | VITAMIN B1, WHOLE | Routin | 11/20/2017 | Morbid obesity | Results for this | | BLOOD | e | 10:01 AM | with BMI of 70 and | procedure are in the | | | | PDT | over, adult ([facility]) | results section. | | | | | 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| | 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 ([facility]) | | + +--------+ + + + | VITAMIN D, | Routin | 11/20/2017 | Morbid obesity | Results for this | | 25-HYDROXY, SERUM | e | 10:01 AM | with BMI of 70 and | procedure are in the | | | | PDT | over, adult ([facility]) | results section. | | | | | 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| | 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 ([facility]) | | + +--------+ + + + | COMPLETE METABOLIC | Routin | 11/20/2017 | Morbid obesity | Results for this | | SET | e | 10:01 AM | with BMI of 70 and | procedure are in the | | (NA,K,CL,CO2,BUN,CRE | | PDT | over, adult ([facility]) | results section. | | AT,GLUC,CA,AST,ALT,B | | | Diabetes mellitus | | | MARGIE TOTAL,ALK | | | type 2 without | | | PHOS,ALB,PROT TOTAL) |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 ([facility]) | | + +--------+ + + + | CBC ONLY | Routin | 11/20/2017 | Morbid obesity | Results for this | | | e | 10:01 AM | with BMI of 70 and | procedure are in the | | | | PDT | over, adult ([facility]) | results section. | | | | | 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| | 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 ([facility]) | | + +--------+ + + + | FERRITIN | Routin | 11/20/2017 | Morbid obesity | Results for this | | | e | 10:01 AM | with BMI of 70 and | procedure are in the | | | | PDT | over, adult ([facility]) | results section. | | | | [...] | | | PDT | over, adult ([facility]) | results section. | | | | | 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| | 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 ([facility]) | | + +--------+ + + + | VITAMIN B-12 | Routin | 11/20/2017 | Morbid obesity | Results for this | | | e | 10:01 AM | with BMI of 70 and | procedure are in the | | | | PDT | over, adult ([facility]) | results section. | | | | | 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| | 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 ([facility]) | | + +--------+ + [...] | | | PDT | over, adult (HCC) [...] + | [facility] | [address] | [place] [address] | | | [facility] | | | | | HEALTH + [...] | + + + + + | [employer] | [address] | [place], [place] | | | SERVICES, LIPID | [address] | [address] | | + + + + + [...] [facility] | [address] | [place] [address] | | | SERVICES, SPECIAL | CLARENCE [...] | | | | | determined by [facility] | | | | | | Laboratories. See | | | | | | Compliance Statement B: | | | | | | Factyle/CSPerformed | | | | | | by [employer],[address] | | | | | | [address], [facility],[place] | | | | | | [address] | | | | | | [phone][employer]. | | | | | | Ismael [...] [facility] | [address] | [place], [place] | | | [facility] | | [address] | | + + + + + [...] | | | LABORATORY | | | [facility] | | | SERVICES, | | | [...] the MDRD equation recommended by the | [facility] | | National Kidney Disease Education [...] + + + + | [facility] | [address] [facility] | [place] [address] | | | LYDIA RANGEL | CLARENCE [...] [facility] | [address] | [place] [address] | | | SERVICES, CORE | PARK [...] | + + + + + | [facility] | [address] | [place] [address] | | | CLAIRE, LYDIA | CLARENCE BONNER | | | [...] | + + + + + | [facility] | [address] | [place] [address] | | | SERVICES, CORE | CLARENCE [...] [facility] | [address] | [place] [address] | | | SERVICES, CORE | PARK [...] + + + + + | [facility] | [address] | [place] [address] | | | SERVICES, CORE | PARK [...]
--- OUTSIDE RECORDS SUMMARY | ~2020-02-27 | XMS | Encounter Summary ---
Demographics + + + | Address | [address] | | | [place] [address] | + + + | Home Phone [...] + | Katalina Padilla | ECON | [address] | | | | | [place], [place] | | | | | [address] | | + + + + + | Ellie Vang | ECON | Unknown | | + + + + + Care Team Providers + +------+ + | Care Talend Etl Developer Name | Role | Phone | [...] + + + + | 02/28/ | Hospital | [facility] [address] | Shahid Cantu, | | | 2015 - | Encounter | [address] | [address] | | | | | [place], [place] | [address] | | | 03/03/ | | [address] | [place], [place] | | | 2014 | | [phone] | [address] | | | | | | [phone] | | | | | | | [...] for follow up on 04/09 at clinic abo Langston MD - 03/06/2015 1:36 PM PDTFormatt ing [...] port site who was transferre d to [facility] for concern of an incarcerated hernia. On [...] mouth once daily. , Historical Med CALCIUM CRB&PED-F5-MPJ54-GENIS ORAL Take 1 tablet by mouth two [...] 10:40 AM Randell Franks Cardiology Preventive at [facility] [phone] Cardiology 04/09/2015 1:00 PM Egs Ppv Tra Trauma Emergency General Surgery at [facility] [phone] TRAUMA CENTE Outstanding labs/studies: None Discharging Physician: GABO LANGSTON MD Attending Physician: Dr. Cantu PCP: Fadi Goodrich DO Signed: GABO LANGSTON MD Pager #[phone] Surgical Director Of Cardiopulmonary Services [facility] Associated attestation - Tye Carrillo DO - 03/12/2015 9:12 AM PDTAttending: I discussed this patient with the resident and agree with the assessment and plan as outlin ed in this note and participated in the planning of care. Tye Carrillo DO, MBA, FACS Division of Trauma, Critical Care & Acute Care Surgery [facility] [phone] documented in this encounter Medications at Time of Discharge + + + +---------+--------+ + | Medication | Sig | Dispensed | Refills | Start | End Date | | | | | | Date | | + + + +---------+--------+ + | CALCIUM | Take 2 tablets by | | 0 | | | | CRB&TVM-J5-CDT16-GEN | mouth two times | | | [...] might be differ ent from the original. [facility] DEPARTMENT OF SURGERY EMERGENCY GENERAL SURGERY Division [...] obesity with known ventral hernias transferred to [facility] for surgical managem ent of ventral hernia, now s/p repair. Post surgical pain: -patient ready for d/c, discussed f/u. Patient lives far away and has other appointments at [facility]. Will attempt to coordinate appointments. Discharge Plan: D/c today GABO LANGSTON MD Pager #[phone] Surgical Director Of Cardiopulmonary Services [facility] Salomón William Md - 03/02/2015 1:12 PM PDT [facility] DEPARTMENT OF SURGERY EMERGENCY GENERAL SURGERY Division of Trauma and Critical Care Attending Physician: Shahid Cantu MD Progress Note Note Date: 03/02/2015 Admission Date: 2015 DYLAN ROMERO, Hospital Day #2 40 F PMH morbid obesity (BMI 71 today), DM2, depression, GERD, h/o stroke at age 18, and kn own ventral hernias transferred to [facility] for surgical treatment of suspected incarcerated yuriy [...] obesity with known ventral hernias transferred to [facility] for surgical managem ent of ventral hernia, [...] will be robel ing her home to [place], [place]. CALVIN ROMERO MD PGY-1 Anesthesiology [address]: [phone] [facility] [address] [facility] [phone] arthik Gonzalez MD - 03/02/2015 8:26 AM [id number] Calvin William Md - 03/01/2015 5:34 PM PDT Brief Post Operative Note: 40 F PMH morbid obesity (BMI 71 today), DM2, depression, GERD, h/o stroke at age 18, and kn own ventral hernias transferred to [facility] for surgical treatment of incarcerated ventral herni [...] control CALVIN ROMERO MD PGY-1 Anesthesiology Pager: [phone] signed by Calvin Romero Md at 03/01/2015 5:41 PM PDTdocumentyesenia parikh in this encounter Plan of Treatment +--------+ + + + + | Date | Type | Specialty | Care Team | Description | +--------+ + + + + | 03/22/ | Office | Cardiology | Randell Franks, | | | 2019 | Visit | | [address] | | | | | | [place], [place] | | | | | | [address] | | | | | | [phone] | | | | | | | | +--------+ + + + + | 04/04/ | Telephone-S | Surgery | Orquidea Cristobal, | | | 2019 | 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 Chris Cantu was present and scrubbed for the entirety of the case. | | | | | | | |Karthik Gonzalez MD | | | |Pursuant to federal Medicare and Medicaid regulations I was present for the entire procedur e. | | | | | | | |Shahid Cantu MD | |Wholesaler | |Trauma, Critical Care & Acute Care Surgery | | | | | | | |Shahid Cantu MD | |TBK/MODL | | | | | | /[id number] | + ---+ CAPILLARY BLOOD GLUCOSE (NO [...] [place] | [address] | [place], [place] | | | [facility] | [address] | [address] | | | TESTS | | | [...] [place] | [address] | [place], [place] | | | [facility] | [address] | [address] | | | TESTS | | | [...] AMES | [address] | [place], [place] | | | [facility] | [address] | [address] | | | TESTS | | | [...] [place] | [address] | [place], [place] | | | [facility] | [address] | [address] | | | TESTS | | | [...] - [place] | [address] | [place], [place] | | | [facility] | [address] | [address] | | | TESTS | | | [...] AMES | [address] | [place], [place] | | | [facility] | [address] | [address] | | | TESTS | | | [...] | [facility] | [address] | [place] [address] | | | SERVICES, CORE | PARK [...] the MDRD equation recommended by the | [facility] | | National Kidney Disease Education Program. [...] | + + + + + | [facility] | [address] | [place] [address] | | | SERVICES, CORE | PARK [...] + | [facility] | [address] | [place], [place] | | | [facility] | [address] | [address] | | | TESTS | | | [...] + + + | [facility] | [address] | [place], [place] | | | [facility] [facility] | [address] | [address] | | | TESTS | | | [...] [place] | [address] | [place], [place] | | | [facility] | [facility] | [address] | | | TESTS | | | [...] + | [facility] | [address] | [place], [place] | | | [facility]ARE | [address] | [address] | | | TESTS | | | [...] + + + | [facility] | [address] | [place], [place] | | | [facility] [facility] | [address] | [address] | | | TESTS | | | [...] | + + + + + | [facility] | [address] | [place] [address] | | | SERVICES, CORE | CLARENCE [...] (H) | 60 - 99 mg/dL | [facility] - | | | GLUCOSE, | | [...] AMES | [address] | [place], [place] | | | [facility] | [address] | [address] | | | TESTS | | | | + + + + + documented in this encounter Visit Diagnoses + + | Diagnosis | + + | Ventral hernia, recurrence not specified | + + documented in this encounter Administered Medications + +--------+ +--------+------+------+ | Medication Order | MAR | Action | Dose | Rate | Site | | | Action | Date | | | | + +--------+ +--------+------+------+ | acetaminophen (TYLENOL) tablet | Given | 03/02/20 | 325 mg | | | | 325 mg 325 mg, oral, EVERY 4 | | 15 10:58 | | | | | HOURS NEEDED, Starting Fri | | AM PDT | | | | | 03/02/15 at 1018, Until Thu03/02/15 | | | | | | | at 1417, mild pain | | | | | | + +--------+ +--------+------+------+ +---+---+ | | | +---+---+ + +-------+ +--------+---+---+ | acetaminophen (TYLENOL) tablet | Given | 03/02/20 | 650 mg | | | | 325-650 mg 325-650 mg, oral, | | 15 7:10 | | | | | EVERY 4 HOURS NEEDED, Starting | | AM PDT | | | | | Jasmyne 03/01/15 at 1623, Until Fri | | | | | | | 03/02/15 at 1019, mild pain | | | | | | + +-------+ +--------+---+---+ +-------+ +--------+---+---+ | Given | 03/02/20 | 650 mg | | | | | 15 12:24 | | | | | | AM PDT | | | | +-------+ +--------+---+---+ | Given | 03/01/20 | 650 mg | | | | | 15 5:45 | | | | | | PM PDT | | | | +-------+ +--------+---+---+ +---+---+ | | | +---+---+ + +-------+ +--------+---+---+ | acetaminophen (TYLENOL) tablet | Given | 03/02/20 | 650 mg | | | | 650 mg 650 mg, oral, EVERY 4 | | 15 5:05 | | | | | HOURS NEEDED, Starting Fri | | PM PDT | | | | | 03/02/15 at 1417, Until 03/02/15 | | | | | | | at 193, mild pain | | | | | | + +-------+ +--------+---+---+ +---+---+ | | | +---+---+ + +-------+ +--------+---+---+ | acetaminophen (TYLENOL) tablet | Given | 03/03/20 | 650 mg | | | | 650 mg 650 mg, oral, EVERY 3 | | 15 5:30 | | | | | HOURS NEEDED, Starting Fri | | AM PDT | | | | | 03/02/15 at 1945, Until 03/03/15 | | | | | | | at 2044, mild pain | | | | | | + +-------+ +--------+---+---+ +---+---+ | | | +---+---+ + +-------+ +--------+---+---+ | ascorbic acid tablet 500 mg | Given | 03/03/20 | 500 mg | | | | 500 mg, oral, DAILY, First dose | | 15 8:32 | | | | | on Thu03/01/15 at 0900, Until | | AM PDT | | | | | Discontinued | | | | | | + +-------+ +--------+---+---+ +-------+ +--------+---+---+ | Given | 03/02/20 | 500 mg | | | | | 15 8:38 | | | | | | AM PDT | | | | +-------+ +--------+---+---+ | Given | 03/01/20 | 500 mg | | | | | 15 7:44 | | | | | | AM PDT | | | | +-------+ +--------+---+---+ +---+---+ | | | +---+---+ + +-------+ +-------+---+---+ | enoxaparin (LOVENOX) injection | Given | 03/03/20 | 60 mg | | | | 60 mg 60 mg, subcutaneous, EVERY | | 15 8:32 | | | | | 12 HOURS, First dose (after last | | AM PDT | | | | | modification) on Thu02/28/15 at | | | | | | | 2245, Until Discontinued | | | | | | + +-------+ +-------+---+---+ +-------+ +-------+---+---+ | Given | 03/02/20 | 60 mg | | | | | 15 8:14 | | | | | | PM PDT | | | | +-------+ +-------+---+---+ | Given | 03/02/20 | 60 mg | | | | | 15 8:38 | | | | | | AM PDT | | | | +-------+ +-------+---+---+ +---+---+ | | | +---+---+ + +-------+ +---------+---+---+ | ergocalciferol (VITAMIN D2, | Given | 03/01/20 | 50,000 | | | | DRISDOL) capsule 50,000 Units | | 15 7:45 | Units | | | | 50,000 Units, oral, EVERY THU AND | | AM PDT | | | | | JASMYNE (Once per day on Thu), | | | | | | | First dose on Thu03/01/15 at 0900, | | | | | | | Until Discontinued | | | | | | + +-------+ +---------+---+---+ +---+---+ | | | +---+---+ + +---------+ +--------+---+---+ | fentaNYL citrate (PF) | New Bag | 03/01/20 | 50 mcg | | | | (SUBLIMAZE) injection 50 mcg 50 | | 15 12:21 | | | | | mcg, intravenous, POSTPROCEDURE | | PM PDT | | | | | PRN, 4 doses, Starting Jasmyne 8 | | | | | | | at 1056, Until Jasmyne 03/01/15 at | | | | | | | 1436, severe pain | | | | | | + +---------+ +--------+---+---+ +---------+ +--------+---+---+ | New Bag | 03/01/20 | 50 mcg | | | | | 15 12:16 | | | | | | PM PDT | | | | +---------+ +--------+---+---+ + +---+ | | | + +---+ | fentaNYL citrate (PF) | | | (SUBLIMAZE) injection 1 dose, | | | Starting Jasmyne 03/01/15 at 1215, | | | Until Jasmyne 03/01/15 at 1216 | | + +---+ | | | + +---+ + +-------+ +-------+---+---+ | FLUoxetine (PROZAC) capsule 40 | Given | 03/03/20 | 40 mg | | | | mg 40 mg, oral, DAILY, First | | 15 8:32 | | | | | dose on Jasmyne 03/01/15 at 0900, Until | | AM PDT | | | | | Discontinued | | | | | | + +-------+ +-------+---+---+ +-------+ +-------+---+---+ | Given | 03/02/20 | 40 mg | | | | | 15 8:38 | | | | | | AM PDT | | | | +-------+ +-------+---+---+ | Given | 03/01/20 | 40 mg | | | | | 15 8:29 | | | | | | AM PDT | | | | +-------+ +-------+---+---+ +---+---+ | | | +---+---+ + +-------+ +--------+---+---+ | guaiFENesin LA (MUCINEX) tablet | Given | 03/03/20 | 600 mg | | | | 600 mg 600 mg, oral, TWICE | | 15 6:47 | | | | | DAILY, First dose on Thu03/02/15 | | AM PDT | | | | | at 2100, Until Discontinued | | | | | | + +-------+ +--------+---+---+ +-------+ +--------+---+---+ | Given | 03/02/20 | 600 mg | | | | | 15 8:14 | | | | | | PM PDT | | | | +-------+ +--------+---+---+ | Given | 03/02/20 | 600 mg | | | | | 15 1:57 | | | | | | PM PDT | | | | +-------+ +--------+---+---+ +---+---+ | | | +---+---+ + +---------+ +--------+---+---+ | HYDROmorphone (DILAUDID) | New Bag | 03/01/20 | 0.5 mg | | | | injection 0.2-0.5 mg 0.2-0.5 mg, | | 15 1:00 | | | | | intravenous, POSTPROCEDURE PRN, | | PM PDT | | | | | Starting Jasmyne 03/01/15 at 1056, | | | | | | | Until Jasmyne 03/01/15 at 1436, | | | | | | | moderate pain | | | | | | + +---------+ +--------+---+---+ +---------+ +--------+---+---+ | New Bag | 03/01/20 | 0.5 mg | | | | | 15 12:31 | | | | | | PM PDT | | | | +---------+ +--------+---+---+ +---+---+ | | | +---+---+ + +---------+ +--------+---+---+ | HYDROmorphone (DILAUDID) | New Bag | 03/02/20 | 0.5 mg | | | | injection 0.2-0.6 mg 0.2-0.6 mg, | | 15 12:45 | | | | | intravenous, EVERY 2 HOURS | | PM PDT | | | | | NEEDED, Starting Thu02/28/15 at | | | | | | | 1856, Until Thu03/02/15 at 1417, | | | | | | | moderate pain | | | | | | + +---------+ +--------+---+---+ +---------+ +--------+---+---+ | New Bag | 03/02/20 | 0.5 mg | | | | | 15 8:35 | | | | | | AM PDT | | | | +---------+ +--------+---+---+ | New Bag | 03/02/20 | 0.5 mg | | | | | 15 5:54 | | | | | | AM PDT | | | | +---------+ +--------+---+---+ +---+---+ | | | +---+---+ + +---------+ +--------+---+---+ | HYDROmorphone (DILAUDID) | New Bag | 03/02/20 | 0.5 mg | | | | injection 0.2-0.8 mg 0.2-0.8 mg, | | 15 9:28 | | | | | intravenous, EVERY 2 HOURS | | PM PDT | | | | | NEEDED, Starting Thu03/02/15 at | | | | | | | 1417, Until 03/03/15 at 2045, | | | | | | | moderate pain | | | | | | + +---------+ +--------+---+---+ +---------+ +--------+---+---+ | New Bag | 03/02/20 | 0.8 mg | | | | | 15 6:15 | | | | | | PM PDT | | | | +---------+ +--------+---+---+ + +---+ | | | + +---+ | HYDROmorphone (DILAUDID) | | | injection 1 dose, Starting Jasmyne | | | 03/01/15 at 1230, Until Jasmyne 03/01/15 | | | at 1231 | | + +---+ | | | + +---+ + +-------+ +--------+---+---+ | ibuprofen (MOTRIN) tablet 600 | Given | 03/02/20 | 600 mg | | | | mg 600 mg, oral, EVERY 6 HOURS | | 15 11:30 | | | | | NEEDED, Starting Thu03/02/15 at | | PM PDT | | | | | 1600, Until 03/03/15 at 2045, | | | | | | | moderate pain | | | | | | + +-------+ +--------+---+---+ +-------+ +--------+---+---+ | Given | 03/02/20 | 600 mg | | | | | 15 5:05 | | | | | | PM PDT | | | | +-------+ +--------+---+---+ +---+---+ | | | +---+---+ + +---------+ +-------+---+---+ | ketorolac (TORADOL) injection | New Bag | 03/02/20 | 30 mg | | | | 30 mg 30 mg, intravenous, ONCE, | | 15 10:58 | | | | | 1 dose, Thu03/02/15 at 1100 | | AM PDT | | | | + +---------+ +-------+---+---+ +---+---+ | | | +---+---+ + +---------+ +-------+-------+---+ | lactated ringers IV 100 mL/hr, | New Bag | 03/02/20 | 100 | 100 | | | intravenous, CONTINUOUS, | | 15 11:01 | mL/hr | mL/hr | | | Starting Jasmyne 03/01/15 at 0045, | | AM PDT | | | | | Until Thu03/02/15 at 1306 | | | | | | + +---------+ +-------+-------+---+ + + +-------+-------+---+ | New Bag | 03/02/20 | 100 | 100 | | | | 15 12:21 | mL/hr | mL/hr | | | | AM PDT | | | | + + +-------+-------+---+ | Restarted | 03/01/20 | 100 | 100 | | | | 15 2:55 | mL/hr | mL/hr | | | | PM PDT | | | | + + +-------+-------+---+ +---+---+ | | | +---+---+ + +-------+ +--------+---+---+ | magnesium oxide (MAG-OX) tablet | Given | 03/03/20 | 400 mg | | | | 400 mg 400 mg, oral, DAILY, | | 15 8:32 | | | | | First dose on Jasmyne 03/01/15 at 0900, | | AM PDT | | | | | Until Discontinued | | | | | | + +-------+ +--------+---+---+ +-------+ +--------+---+---+ | Given | 03/02/20 | 400 mg | | | | | 15 8:38 | | | | | | AM PDT | | | | +-------+ +--------+---+---+ | Given | 03/01/20 | 400 mg | | | | | 15 8:29 | | | | | | AM PDT | | | | +-------+ +--------+---+---+ +---+---+ | | | +---+---+ + +-------+ +---+---+---+ | nystatin (MYCOSTATIN) powder | Given | 03/03/20 | | | | | topical, TWICE DAILY, First dose | | 15 8:32 | | | | | on Thu03/01/15 at 0900, Until | | AM PDT | | | | | Discontinued | | | | | | + +-------+ +---+---+---+ +-------+ +---+---+---+ | Given | 03/02/20 | | | | | | 15 8:12 | | | | | | PM PDT | | | | +-------+ +---+---+---+ | Given | 03/02/20 | | | | | | 15 7:59 | | | | | | AM PDT | | | | +-------+ +---+---+---+ +---+---+ | | | +---+---+ + +-------+ +-------+---+---+ | OLANZapine (ZYPREXA) tablet 30 | Given | 03/03/20 | 30 mg | | | | mg 30 mg, oral, DAILY, First | | 15 8:32 | | | | | dose on Thu03/01/15 at 0900, Until | | AM PDT | | | | | Discontinued | | | | | | + +-------+ +-------+---+---+ +-------+ +-------+---+---+ | Given | 03/02/20 | 30 mg | | | | | 15 8:38 | | | | | | AM PDT | | | | +-------+ +-------+---+---+ | Given | 03/01/20 | 30 mg | | | | | 15 8:29 | | | | | | AM PDT | | | | +-------+ +-------+---+---+ +---+---+ | | | +---+---+ + +-------+ +------+---+---+ | ondansetron ODT (ZOFRAN ODT) | Given | 03/02/20 | 4 mg | | | | tablet 4 mg 4 mg, oral, EVERY 8 | | 15 10:05 | | | | | HOURS NEEDED, Starting Fri | | AM PDT | | | | | 03/02/15 at 1001, Until 03/03/15 | | | | | | | at 2045, nausea/vomiting | | | | | | + +-------+ +------+---+---+ +---+---+ | | | +---+---+ + +-------+ +-------+---+---+ | oxyCODONE (immediate release) | Given | 03/02/20 | 10 mg | | | | (ROXICODONE) tablet 10 mg 10 mg, | | 15 10:58 | | | | | oral, EVERY 4 HOURS NEEDED, | | AM PDT | | | | | Starting Thu03/02/15 at 1018, | | | | | | | Until Thu03/02/15 at 1417, severe | | | | | | | pain | | | | | | + +-------+ +-------+---+---+ +---+---+ | | | +---+---+ + +-------+ +-------+---+---+ | oxyCODONE (immediate release) | Given | 03/02/20 | 10 mg | | | | (ROXICODONE) tablet 10 mg 10 mg, | | 15 5:05 | | | | | oral, EVERY 4 HOURS NEEDED, | | PM PDT | | | | | Starting Thu03/02/15 at 1417, | | | | | | | Until Thu03/02/15 at 1931, severe | | | | | | | pain | | | | | | + +-------+ +-------+---+---+ +---+---+ | | | +---+---+ + +-------+ +-------+---+---+ | oxyCODONE (immediate release) | Given | 03/03/20 | 10 mg | | | | (ROXICODONE) tablet 10 mg 10 mg, | | 15 2:03 | | | | | oral, EVERY 3 HOURS NEEDED, | | PM PDT | | | | | Starting 03/02/15 at 1945, | | | | | | | Until 03/03/15 at 2044, severe | | | | | | | pain | | | | | | + +-------+ +-------+---+---+ +-------+ +-------+---+---+ | Given | 03/03/20 | 10 mg | | | | | 15 10:29 | | | | | | AM PDT | | | | +-------+ +-------+---+---+ | Given | 03/03/20 | 10 mg | | | | | 15 7:34 | | | | | | AM PDT | | | | +-------+ +-------+---+---+ +---+---+ | | | +---+---+ + +-------+ +-------+---+---+ | oxyCODONE (immediate release) | Given | 03/01/20 | 15 mg | | | | (ROXICODONE) tablet 5-15 mg 5-15 | | 15 3:40 | | | | | mg, oral, EVERY 4 HOURS | | PM PDT | | | | | NEEDED, Starting Thu02/28/15 at | | | | | | | 1902, Until Jasmyne 03/01/15 at 1624, | | | | | | | moderate pain | | | | | | + +-------+ +-------+---+---+ +-------+ +-------+---+---+ | Given | 03/01/20 | 15 mg | | | | | 15 8:29 | | | | | | AM PDT | | | | +-------+ +-------+---+---+ | Given | 03/01/20 | 10 mg | | | | | 15 4:48 | | | | | | AM PDT | | | | +-------+ +-------+---+---+ +---+---+ | | | +---+---+ + +-------+ +-------+---+---+ | oxyCODONE (immediate release) | Given | 03/02/20 | 20 mg | | | | (ROXICODONE) tablet 5-20 mg 5-20 | | 15 7:10 | | | | | mg, oral, EVERY 3 HOURS | | AM PDT | | | | | NEEDED, Starting Jasmyne 03/01/15 at | | | | | | | 1630, Until Thu03/02/15 at 1019, | | | | | | | moderate pain | | | | | | + +-------+ +-------+---+---+ +-------+ +-------+---+---+ | Given | 03/02/20 | 20 mg | | | | | 15 4:01 | | | | | | AM PDT | | | | +-------+ +-------+---+---+ | Given | 03/02/20 | 20 mg | | | | | 15 12:24 | | | | | | AM PDT | | | | +-------+ +-------+---+---+ +---+---+ | | | +---+---+ + +-------+ +---------+---+---+ | phenol (CEPASTAT) lozenge 14.5 | Given | 03/03/20 | 14.5 mg | | | | mg 14.5 mg (1 lozenge), oral, | | 15 10:29 | | | | | NEEDED, Starting 03/03/15 at | | AM PDT | | | | | 0923, Until 03/03/15 at 2044, | | | | | | | sore throat | | | | | | + +-------+ +---------+---+---+ +---+---+ | | | +---+---+ + +-------+ +------+---+---+ | polyethylene glycol (MIRALAX) | Given | 03/02/20 | 34 g | | | | powder 34 g 34 g, oral, THREE | | 15 9:59 | | | | | TIMES DAILY NEEDED, Starting | | AM PDT | | | | | 02/28/15 at 1859, Until Sat | | | | | | | 03/03/15 at 2044, constipation, for | | | | | | | no BM for 2 days | | | | | | + +-------+ +------+---+---+ +---+---+ | | | +---+---+ + +-------+ +--------+---+---+ | potassium chloride SR (K-DUR) | Given | 03/03/20 | 10 mEq | | | | tablet 10 mEq 10 mEq, oral, | | 15 8:31 | | | | | DAILY, First dose on Thu03/01/15 | | AM PDT | | | | | at 0900, Until Discontinued | | | | | | + +-------+ +--------+---+---+ +-------+ +--------+---+---+ | Given | 03/02/20 | 10 mEq | | | | | 15 8:38 | | | | | | AM PDT | | | | +-------+ +--------+---+---+ | Given | 03/01/20 | 10 mEq | | | | | 15 8:29 | | | | | | AM PDT | | | | +-------+ +--------+---+---+ +---+---+ | | | +---+---+ + +-------+ +--------+---+---+ | ranitidine (ZANTAC) tablet 300 | Given | 03/03/20 | 300 mg | | | | mg 300 mg, oral, DAILY, First | | 15 8:31 | | | | | dose on Thu03/02/15 at 0900, Until | | AM PDT | | | | | Discontinued | | | | | | + +-------+ +--------+---+---+ +-------+ +--------+---+---+ | Given | 03/02/20 | 300 mg | | | | | 15 10:05 | | | | | | AM PDT | | | | +-------+ +--------+---+---+ +---+---+ | | | +---+---+ + +-------+ + +---+---+ | senna-docusate (SENOKOT S) | Given | 03/03/20 | 1 tablet | | | | 8.6-50 mg 1 tablet 1 tablet, | | 15 8:32 | | | | | oral, TWICE DAILY, First dose on | | AM PDT | | | | | [facility] 03/01/15 at 0215, Until | | | | | | | Discontinued | | | | | | + +-------+ + +---+---+ +-------+ + +---+---+ | Given | 03/02/20 | 1 tablet | | | | | 15 8:12 | | | | | | PM PDT | | | | +-------+ + +---+---+ | Given | 03/02/20 | 1 tablet | | | | | 15 8:38 | | | | | | AM PDT | | | | +-------+ + +---+---+ +---+---+ | | | +---+---+ + +-------+ +-------+---+---+ | thyroid tablet 30 mg 30 mg, | Given | 03/03/20 | 30 mg | | | | oral, DAILY, First dose on [facility] | | 15 8:31 | | | | | 03/01/15 at 0900, Until | | AM PDT | | | | | Discontinued | | | | | | + +-------+ +-------+---+---+ +-------+ +-------+---+---+ | Given | 03/02/20 | 30 mg | | | | | 15 7:59 | | | | | | AM PDT | | | | +-------+ +-------+---+---+ | Given | 03/01/20 | 30 mg | | | | | 15 8:29 | | | | | | AM PDT | | | | +-------+ +-------+---+---+ +---+---+ | | | +---+---+ + +-------+ +--------+---+---+ | topiramate (TOPAMAX) tablet 200 | Given | 03/03/20 | 200 mg | | | | mg 200 mg, oral, DAILY, First | | 15 8:32 | | | | | dose on [facility] 03/01/15 at 0900, Until | | AM PDT | | | | | Discontinued | | | | | | + +-------+ +--------+---+---+ +-------+ +--------+---+---+ | Given | 03/02/20 | 200 mg | | | | | 15 8:38 | | | | | | AM PDT | | | | +-------+ +--------+---+---+ | Given | 03/01/20 | 200 mg | | | | | 15 8:29 | | | | | | AM PDT | | | | +-------+ +--------+---+---+ +---+---+ | | | +---+---+ + +-------+ +-------+---+---+ | torsemide (DEMADEX) tablet 40 | Given | 03/03/20 | 40 mg | | | | mg 40 mg, oral, TWICE DAILY | | 15 8:31 | | | | | (DIURETIC), First dose on [facility] | | AM PDT | | | | | 03/01/15 at 0800, Until | | | | | | | Discontinued | | | | | | + +-------+ +-------+---+---+ +-------+ +-------+---+---+ | Given | 03/02/20 | 40 mg | | | | | 15 5:03 | | | | | | PM PDT | | | | +-------+ +-------+---+---+ | Given | 03/02/20 | 40 mg | | | | | 15 8:38 | | | | | | AM PDT | | | | +-------+ +-------+---+---+ +---+---+ | | | +---+---+ + +-------+ +--------+---+---+ | traZODone (DESYREL) tablet 150 | Given | 03/02/20 | 150 mg | | | | mg 150 mg, oral, AT BEDTIME | | 15 9:38 | | | | | NEEDED, Starting Jasmyne 03/01/15 at | | PM PDT | | | | | 0017, Until 03/03/15 at 2044, | | | | | | | insomnia | | | | | | + +-------+ +--------+---+---+ +---+---+ | | | +---+---+ documented in this encounter
--- OUTSIDE RECORDS SUMMARY | ~2020-02-27 | XMS | Encounter Summary ---
Demographics + + + | Address | [address] | | | [place] [address] | + + + | Home Phone [...] [place], [place] | | | | | [address] | | + + + + + | Ellie Vang | ECON | Unknown | | + + + + + Care Team Providers + +------+ + | Care Technical Administrator Name | Role | Phone | [...] [address] | | | | | ([facility]) | [address] | [address] | | | | | Procedures | [place], [place] | [place], [place] | | | | | CONSULT TO | [address] | [address] | | | | | CAR | Phone: | Phone: | | | | | PREVENTATIVE | [phone] | [phone] | | | | | [facility] - | Fax: | Fax: | | | | | LIPIDS | [phone] | [phone] | +--------+--------+ + + + + Reason [...] | | 2 diabetes | [place], | [place], [place] | | | | | mellitus | [place] [address] | [address] | | | | | without | Phone: | Phone: | | | | | complication | [phone] | [phone] | | | | | (HCC) | Fax: | Fax: | | | | | Procedures | [phone] | [phone] | | | | | MO EST | | | | | | [...] | 2017 | Visit | Preventive at [facility] | MD [address] | hypertension | | | | [address] | [facility] [place] | (Primary Dx); Right | | | | [facility] | [address] | heart failure (HCC) | | | | and Healing, | [phone] | | | | | [address] | | | | | | [place], [place] | | | | | | [address] | | | | | | [phone] | | | +--------+---------+ + + + [...] 1 tablet by mouth once daily CALCIUM CRB&UUD-V0-EXX56-GENIS ORAL Take 2 tablets by mouth two [...] facility-administered medications for this visit. SChandler Ruff returns in follow-up of obesity and T2DM. [...] | Cardiology | Randell Franks, | | 2019 | Visit | | [address] | | | | | | [place], [place] | | | | | | [address] | | | | | | [phone] | | | | | | | | +--------+ + + + + | 04/04/ | Telephone-S | Surgery | Orquidea Cristobal, | | | 2020 | sherrill | | GROUT MACHINE OPERATOR [address] | | | | | | [place], [place] | | | | | | [address] | | | | | | [phone] | | | | | | | | +--------+ + + + + documented as of this encounter Visit Diagnoses + + | Diagnosis | + + | Essential hypertension - Primary | + + | Right heart failure (HCC) Congestive heart failure, unspecified | + + documented in this encounter
--- OUTSIDE RECORDS SUMMARY | ~2020-02-27 | XMS | Encounter Summary ---
Demographics + + + | Address | [address] | | | [place] [address] | + + + | Home Phone [...] [place], [place] | | | | | [address] | | + + + + + | Ellie Vang | ECON | Unknown | | + + + + + Care Team Providers + +------+ + | Care Child Attendant Name | Role | Phone | [...] | | | | | bypass | [place], | [facility], | | | | | Nausea and | [place] | 10th Floor | | | | | vomiting, | [address] | [place], [place] | | | | | intractabili | Phone: | [address] | | | | | ty of | | Phone: | | | | | vomiting not | Fax: | [phone] | | | | | specified, | [phone] | Fax: | | | | | unspecified | | [phone] | | | | | vomiting | [...] | | | | | | CONTRAST CT | | | | | | | CT SCAN OF | | | | | | | ABDOMEN | | | | | | | CONTRAST CT | | | | | | [...] | | | | | bypass | [place], | [facility], | | | | | Nausea and | [place] | 10th Floor | | | | | vomiting, | [address] | [place], [place] | | | | | intractabili | Phone: | [phone] | | | | | ty of | | Phone: | | | | | vomiting not | Fax: | [phone] | | | | | specified, | [phone] | Fax: | | | | | unspecified | | [phone] | | | | | vomiting | [...] | | | | | | CONTRAST CT | | | | | | | CT SCAN OF | | | | | | | ABDOMEN | | | | | | | CONTRAST CT | | | | | | [...] | 2019 | Encounter | Services at [facility] | AGACNP [address] | | | | | [address] | [place], [place] | | | | | Lesly Gutiérrez [facility] | [address] | | | | | [address] | [phone] | | | | | [place], [place] | | | | | | [address] | | | | | | [phone] | | | +--------+ + + + [...] | | 0 | | | | CRB&WNJ-N1-XMS72-GEN | mouth two times | | | [...] tablet by | 90 | 1 | 03/26/20 | | | 324 mg total salt [...] Ave | | | | | | [place], [place] | | | | | | [address] | | | | | | [phone] | | | | | | | | +--------+ + + + + | 04/04/ | Telephone-S | Surgery | Orquidea Cristobal, | | | 2019 | cheduled | | POULTRY TRIMMER [address] | | | | | | [place], [place] | | | | | | [address] | | | | | | [phone] | | | | | | | [...]
--- OUTSIDE RECORDS SUMMARY | ~2020-02-27 | XMS | Encounter Summary ---
Demographics + + + | Address | [address] | | | [place] [address] | + + + | Home Phone [...] + | Katalina Padilla | ECON | [address] | | | | | [place], [place] | | | | | [address] | | + + + + + | Ellie Vang | ECON | Unknown | | + + + + + Care Team Providers + +------+ + | Care Heel Curver Name | Role | Phone | + [...] | | | | | | | [address] | | | | | | [address] | | | | | | | Physicians | | | | | | | Pavilion, 2nd | | | | | | | Floor | | | | | | | [place], [place] | | | | | | | [address] | | | | | | | Phone: | | | | | | | [phone] | | | | | | | Fax: | | | | | | | [phone] | +--------+--------+ + + + + Encounter [...] | | | [facility] [address] | or gangrene (Primary | | | | [address] | [place], [place] | Dx) | | | | Physicians [place], | [address] | | | | | 2nd Floor | [phone] | | | | | [facility] [place] | | | | | | [address] | | | | | | [phone] | | | +--------+---------+ + + + [...] Rocha MD,MPH - 11/05/2015 2:09 PM PDT [facility] Department of Surgery EGS/TRAUMA Surgery Clinic [...] 500 mg by mouth once daily. CALCIUM CRB&PMA-F3-SSM73-GENIS ORAL Take 1 tablet by mouth two [...] were answered. Christian Rocha MD MPH FACS [facility] mild disabilities teacher Trauma, Critical Care & Acute Care Surgery [facility] [place] [phone] documented in thi s encounter Plan of Treatment +--------+ + + + + | Date | Type | Specialty | Care Team | Description | +--------+ + + + + | 03/22/ | Office | Cardiology | Randell Franks, | | | 2019 | Visit | | [address] | | | | | | [place], [place] | | | | | | [address] | | | | | | [phone] | | | | | | | | +--------+ + + + + | 04/04/ | Telephone-S | Surgery | Orquidea Cristobal, | | | 2019 | cheduled | | ASSISTANT KITCHEN MANAGER [address] | | | | | | [facility] [place] | | | | | | [address] | | | | | | [phone] | | | | | | | | +--------+ + + + + documented as of this encounter Visit Diagnoses + + | Diagnosis | + + | Ventral hernia without obstruction or gangrene - Primary Ventral hernia, unspecified, | | without mention of obstruction or gangrene | + + documented in this encounter"
--- OUTSIDE RECORDS SUMMARY | ~2020-02-27 | XMS | Encounter Summary ---
Demographics + + + | Address | [address] | | | [place] [address] | + + + | Home Phone [...] + | Katalina Padilla | ECON | [address] | | | | | [place], [place] | | | | | [address] | | + + + + + | Ellie Vang | ECON | Unknown | | + + + + + Care Team Providers + +------+ + | Care Motor Assembly Supervisor Name | Role | Phone | + +------+ + | Fadi Goodrich DO | PCP | | + +------+ + Encounter Details +--------+ + + + + | Date | Type | Department | Care Team | Description | +--------+ + + + + | 02/13/ | Telephone | Cardiology | Randell Franks, | | | 2016 | | Preventive at [facility] | MD [address] | | | | | [address] | [facility] [place] | | | | | [facility] | [address] | | | | | and [place], | [phone] | | | | | [address] | | | | | | [facility] [place] | | | | | | [address] | | | | | | [phone] | | | +--------+ + + + [...] Ave | | | | | | [place], [place] | | | | | | [address] | | | | | | [phone] | | | | | | | | +--------+ + + + + | 04/04/ | Telephone-S | Surgery | Orquidea Cristobal, | | | 2019 | cheduled | | COMMISSIONING AGENT [address] | | | | | | [place], [place] | | | | | | [address] | | | | | | [phone] | | | | | | | | +--------+ + + + + documented as of this encounter Visit Diagnoses Not on filedocumented in this encounter"
--- OUTSIDE RECORDS SUMMARY | ~2020-02-27 | XMS | Encounter Summary ---
Demographics + + + | Address | [address] | | | [place] [address] | + + + | Home Phone [...] + | Katalina Padilla | ECON | [address] | | | | | [place], [place] | | | | | [address] | | + + + + + | Ellie Vang | ECON | Unknown | | + + + + + Care Team Providers + +------+ + | Care Stem Sizer Name | Role | Phone | + [...] [address] | | | | | [address] [facility] | Ave [place], [place] | | | | | Health and Healing, | [address] | | | | | [place] [address] [facility] | [phone] | | | | | Floor [place], [place] | | | | | | [address] | | | | | | [phone] | | | +--------+ + + + [...] | | 0 | | | | CRB&DOQ-M6-VBI16-GEN | mouth two times | | | [...] Ave | | | | | | [facility] [place] | | | | | | [address] | | | | | | [phone] | | | | | | | | +--------+ + + + + | 04/04/ | Telephone-S | Surgery | Orquidea Cristobal, | | | 2019 | cheduled | | HOUSE REPAIRER [address] | | | | | | [place], [place] | | | | | | [address] | | | | | | [phone] | | | | | | | [...] + + + | EXAM: Esophagram with echocardiograph tech radiograph HISTORY: RYGB 03/01/2018, | [facility] | | vomiting/pain ever since COMPARISON: 04/27/2018 CT TECHNIQUE: | RADIOLOGY VOICE | | Title Specialist radiograph was performed. Single contrast exam of the esophagus, | RECOGNITION 2 | | gastric pouch, and gastrojejunostomy in upright positioning. | | | Radiation dose reduction technique was maximized where appropriate | | | using pulsed fluoroscopy and fluoro-store images. Fluoro Time 57 | | | second(s) FINDINGS: Title Specialist shows stone in the upper pole of [...] AM PST EXAM: Esophagram | | with echocardiograph tech radiograph HISTORY: RYGB 03/01/2018, vomiting/pain ever since COMPARISON: | | 04/27/2018 CT TECHNIQUE: Title Specialist radiograph was performed. Single contrast exam of the | | esophagus, gastric pouch, and gastrojejunostomy in upright positioning. Radiation dose | | reduction technique was maximized where appropriate using pulsed fluoroscopy and | | fluoro-store images. Fluoro Time 57 second(s) FINDINGS:Title Specialist shows stone in the upper | | [...]
--- OUTSIDE RECORDS SUMMARY | ~2020-02-27 | XMS | Encounter Summary ---
Demographics + + + | Address | [address] | | | [place] [address] | + + + | Home Phone [...] + | Katalina Padilla | ECON | [address] | | | | | [place], [place] | | | | | [address] | | + + + + + | Ellie Vang | ECON | Unknown | | + + + + + Care Team Providers + +------+ + | Care Java Golden Gate Developer Name | Role | Phone | [...] [address] | | | | | [facility] at | [place], [place] | | | | | [place] [address] | [address] | | | | | [facility] | [phone] | | | | | [facility] | | | | | | [place], [place] | | | | | | [address] | | | | | | [phone] | | | +--------+--------+ + + + [...] [address] | | | | | | [place], [place] | | | | | | [address] | | | | | | [phone] | | | | | | | | +--------+ + + + + | 04/04/ | Telephone-S | Surgery | Orquidea Cristobal, | | | 2019 | cheduled | | PRETZEL TWISTER [address] | | | | | | [place], [place] | | | | | | [address] | | | | | | [phone] | | | | | | | | +--------+ + + + + documented as of this encounter Visit Diagnoses Not on filedocumented in this encounter"
--- OUTSIDE RECORDS SUMMARY | ~2020-02-27 | XMS | Encounter Summary ---
Demographics + + + | Address | [address] | | | [place] [address] | + + + | Home Phone [...] + | Katalina Padilla | ECON | [address] | | | | | [place], [place] | | | | | [address] | | + + + + + | Ellie Vang | ECON | Unknown | | + + + + + Care Team Providers + +------+ + | Care Candy Puller Name | Role | Phone | + +------+ + | Fadi oGodrich DO | PCP | | + +------+ + Encounter Details +--------+ + + + + | Date | Type | Department | Care Team | Description | +--------+ + + + + | 07/19/ | Abstract | Digestive Health | Kathy Feldman, | | | 2012 | | [place] [address] [address] | BOWLING BALL WEIGHER AND PACKER [address] | | | | | [address] [facility] | [facility] [address] | | | | | for Health and | [place], [place] | | | | | [facility] | [address] | | | | | [place], [place] | [phone] | | | | | [address] | | | | | | [phone] | | | +--------+ + + + [...] Ave | | | | | | [place], [place] | | | | | | [address] | | | | | | [phone] | | | | | | | | +--------+ + + + + | 04/04/ | Telephone-S | Surgery | Orquidea Cristobal, | | | 2019 | sherrill | | AMUSEMENT EQUIPMENT OPERATOR [address] | | | | | | [place], [place] | | | | | | [address] | | | | | | [phone] | | | | | | | | +--------+ + + + + documented as of this encounter Visit Diagnoses Not on filedocumented in this encounter"
--- OUTSIDE RECORDS SUMMARY | ~2020-02-27 | XMS | Encounter Summary ---
Demographics + + + | Address | [address] | | | [place] [address] | + + + | Home Phone [...] + | Katalina Padilla | ECON | [address] | | | | | [place], [place] | | | | | [address] | | + + + + + | Ellie Vang | ECON | Unknown | | + + + + + Care Team Providers + +------+ + | Care Microsoft Office Instructor Name | Role | Phone | + +------+ + | Fadi Goodrich DO | PCP | | + +------+ + Encounter Details +--------+ + + + + | Date | Type | Department | Care Team | Description | +--------+ + + + + | 10/05/ | Abstract | Digestive Health | Hernandez Brian, | | | 2012 | | [place] [address] [address] | [address] [facility] | | | | | [address] [facility] | [facility] | | | | | for Health and | [place], [place] | | | | | [facility] [address] | [address] | | | | | [place], [place] | [phone] | | | | | [address] | | | | | | [phone] | | | +--------+ + + + [...] Ave | | | | | | [place], [place] | | | | | | [address] | | | | | | [phone] | | | | | | | | +--------+ + + + + | 04/04/ | Telephone-S | Surgery | Orquidea Cristobal, | | | 2019 | cheduled | | SUPERIOR COURT JUDGE [address] | | | | | | [place], [place] | | | | | | [address] | | | | | | [phone] | | | | | | | | +--------+ + + + + documented as of this encounter Visit Diagnoses Not on filedocumented in this encounter"
--- OUTSIDE RECORDS SUMMARY | ~2020-02-27 | XMS | Encounter Summary ---
Demographics + + + | Address | [address] | | | [place] [address] | + + + | Home Phone [...] + | Katalina Padilla | ECON | [address] | | | | | [place], [place] | | | | | [address] | | + + + + + | Ellie Vang | ECON | Unknown | | + + + + + Care Team Providers + +------+ + | Care Scanner Operator Name | Role | Phone | + +------+ + | Kenyatta Cardenas MD | PCP | | + +------+ + Encounter Details +--------+ + + + + | Date | Type | Department | Care Team | Description | +--------+ + + + + | 02/28/ | Pharmacy | Outpatient Retail | | | | 2017 | Visit | [facility] | | | | | | [address] | | | | | | Loop [place], [place] | | | | | | [address] | | | | | | [phone] | | | +--------+ + + + [...] Ave | | | | | | [place], [place] | | | | | | [address] | | | | | | [phone] | | | | | | | | +--------+ + + + + | 04/04/ | Telephone-S | Surgery | Orquidea Cristobal, | | | 2019 | sherrill | | HAND PASTER [address] | | | | | | [place], [place] | | | | | | [address] | | | | | | [phone] | | | | | | | | +--------+ + + + + documented as of this encounter Visit Diagnoses Not on filedocumented in this encounter"
--- OUTSIDE RECORDS SUMMARY | ~2020-02-27 | XMS | Encounter Summary ---
Demographics + + + | Address | [address] | | | [place] [address] | + + + | Home Phone | | + + + | Preferred Language | Unknown | + + + | Marital Status | | + + + | Yazdanism Affiliation | Unknown | + + + | Race | Unknown | + + + | Ethnic Group | Unknown | + + + Author + + + | Author | [facility] | | | and [place]ana | + + + | Organization | [facility] | | [...] Team Providers + +------+ + | Care Mixer Foam Rubber Name | Role | Phone | + +------+ + PCP | Unavailable | + +------+ + Encounter Details +--------+ + + + + | Date | Type | Department | Care Team | Description | +--------+ + + + + | 06/19/ | Hospital | [facility] | Fadi Goodrich, | | | 2002 | Encounter | CONVERSION DE[address] | [place] [address] [place] | | | | | [address] | [address] | | | | | [place], [place] | [place] [address] | | | | | [address] | [phone] | | | | | [phone] | | | +--------+ + + + [...] D | | | | | | [place] [address] | | | | | | [phone] | | | | | | | | +--------+ + + + + | 03/29/ | Office | Cardiology | Sulema Altamirano | | | 2019 | Visit | | [address] | | | | | | [address] | | | | | | [place] [address] | | | | | | [phone] | | | | | | | | +--------+ + + + + documented as of this encounter Visit Diagnoses Not on filedocumented in this encounter"
--- OUTSIDE RECORDS SUMMARY | ~2020-02-27 | XMS | Encounter Summary ---
Demographics + + + | Address | [address] | | | [place] [address] | + + + | Home Phone [...] [place], [place] | | | | | [address] | | + + + + + | Ellie Vang | ECON | Unknown | | + + + + + Care Team Providers + +------+ + | Care Rim Fire Charger Operator Name | Role | Phone | [...] 03/01/ | Anesthesia | 6A [address] | Aimee Hurst | | | 2018 | Event | [address] | MD Jodie,PhD [address] | | | | | [facility] | [address] | | | | | Hospital Admitting | [place], [place] | | | | | Desk Located on the | [address] | | | | | 9th floor | [phone] | | | | | [place], [place] | | | | | | [address] | Jason Balbuena | | | | | | MD Twin [address] | | | | | | [address] | | | | | | [place], [place] | | | | | | [address] | | | | | | [phone] | | | | | | | [...] 928; Yes; Right; | 01/01/17928 by | 08/18/19 1534 by | | | panus; Other (Comment) (open | Ashley Herndon RN | Orquidea Parks RN | | | tane. area reddened. Pt reports | | | | | using goldbond medicated powder | | | | | on area); 08/18/19; 1534 | | | +--------+ + + + | Periph | 03/01/18; 735; Jaymie RAUSCH; Right; | 03/01/18 0736 by | 03/02/18 0000 by | | eral | Anterior; Forearm; 22 g; None; | Leslie Smiley, | Mojgan Harvey RN | | IV | No; Positive; 03/02/18 | RN | | +--------+ + + + | Periph | 03/01/18; 904; treggiari; Right; | 03/01/18 09 by | 03/02/18 1430 by | | eral | Wrist; 18 g; Positive; 03/02/18; | Jason Murcia | Diana Trejo RN | | IV | 1430; Per protocol | MD Sree | | +--------+ + + + | Incisi | 03/01/18; 921; Dannie; Midline; | 03/01/18921 by | 08/18/19 153 by | | on | adb- upper [...] Incisi | 03/01/18; 0925; Dannie; Left; | 03/01/18924 by | 08/18/19 [address] | | | | | | [place], [place] | | | | | | [address] | | | | | | [phone] | | | | | | | | +--------+ + + + + | 04/04/ | Telephone-S | Surgery | Orquidea Cristobal, | | | 2019 | cheduled | | ACCOUNT SOLUTIONS ANALYST [address] | | | | | | [place], [place] | | | | | | [address] | | | | | | [phone] | | | | | | | | +--------+ + + + + documented as of this encounter Procedures + +--------+ + + + | Procedure Name | Priori | Date/Time | Associated Diagnosis | Comments | | | ty | | | | + +--------+ + + + | CRISTIN ETT | Routin | 03/01/2018 | | Results for this | | | e | 9:42 AM | | procedure are in the | | | | PDT | | results section. | + +--------+ + + + documented in this encounter Results CRISTIN ETT (03/01/2018 9:42 AM PDT) + + [...] | INTRAPROCEDURE PRN, Starting Thu | | 9:15 | | | | | 03/01/18 at 0915, Until 03/01/18 | | AM PDT | [...] INTRAPROCEDURE PRN, Starting Mon | | 18 12:37 | | | [...] glycopyrrolate (TREVER) | Given | 03/01/20 | 0.6 mg [...] | | | 03/01/18 at 1144, Until 03/01/18 | | | | | [...] INTRAPROCEDURE PRN, Starting Thu | | 18 11:15 | | | | | 03/01/18 at 0840, Until Thu03/01/18 | | AM PDT | [...] 03/01/18 at 1206, Until Thu03/01/18 | | PM PDT | | | | | at 1209 | | | | | | + +-------+ +--------+---+---+ +---+---+ | | | +---+---+ documented in this encounter"
--- OUTSIDE RECORDS SUMMARY | ~2020-02-27 | XMS | Encounter Summary ---
Demographics + + + | Address | [address] | | | [place] [address] | + + + | Home Phone [...] + | Katalina Padilla | ECON | [address] | | | | | [place], [place] | | | | | [address] | | + + + + + | Ellie Vang | ECON | Unknown | | + + + + + Care Team Providers + +------+ + | Care Public Information Specialist Name | Role | Phone | + +------+ + | Fadi Goodrich DO | PCP | | + +------+ + Encounter Details +--------+ + + + + | Date | Type | Department | Care Team | Description | +--------+ + + + + | 03/28/ | Abstract | Cardiology | Randell Franks, | | | 2014 | | Preventive at [facility] | MD [address] | | | | | [address] | [place], [place] | | | | | [facility] | [address] | | | | | and [place], | [phone] | | | | | [address] | | | | | | [facility] [place] | | | | | | [address] | | | | | | [phone] | | | +--------+ + + + [...] Ave | | | | | | [place], [place] | | | | | | [address] | | | | | | [phone] | | | | | | | | +--------+ + + + + | 04/04/ | Telephone-S | Surgery | Orquidea Cristobal, | | | 2019 | cheduled | | EDITORIAL INTERN [address] | | | | | | [place], [place] | | | | | | [address] | | | | | | [phone] | | | | | | | | +--------+ + + + + documented as of this encounter Visit Diagnoses Not on filedocumented in this encounter"
--- OUTSIDE RECORDS SUMMARY | ~2020-02-27 | XMS | Encounter Summary ---
Demographics + + + | Address | [address] | | | [place] [address] | + + + | Home Phone [...] Team Providers + +------+ + | Care Jacker Name | Role | Phone | + [...] + + | 02/07/ | Hospital | [address] | Milana Landaverde, | | | 2014 - | Encounter | [address] | [address] | | | | | [place], [place] | [address] | | | 02/08/ | | [address] | [place], [place] | | | 2013 | | [phone] | [address] | | | | | | [phone] | | | | | | | [...] the resident s note. PRADIP STARR MD [facility] [address] [place] [address] orrMaryam hill MD - 1:05 PM PDT [facility] DEPARTMENT OF SURGERY EMERGENCY GENERAL SURGERY [...] Type 2 DM who presented to the [facility] ED ([place], [place]) on 02/06/14, with a week hi story of RUQ abdominal pain that radiates to her back. There, she was found to have leukocyt osis and multiple tiny, mobile stones, + sonographic Petreson's sign on abdominal ultrasound, concerning for acute cholecystitis. She was givenIV antibiotics (cipro, flagyl) and pain med s, then transferred to [facility] by [facility] for further care. Ms. Romero endorsed [...] FADI GOODRICH DO. Contact information [address] [place] [address] Follow up with Trauma Emergency General Surgery at [facility] In 4 weeks. (follow up in 2-4 weeks ) Contact information [address] [facility] Mailcode: L223a [facility] [address] [place] [address] Thank you for the opportunity to take care of DYLAN ROMERO during this inpatient stay, it has been our pleasure. Please call with any questions, . Discharging Provider: MARYAM RHODES MD PGY-1, General Surgery Attending Physician: Milana Landaverde MD documented in this encoun ter Discharge Instructions Instructions Bridger Morales RN - 02/08/2014Patient Education Materials: Follow above mat erials Additional Instructions: Follow above instructions Discharge Nurse: BRIDGER MORALES RN Date: 02/08/2014 Discharge Time: 4:23 PM documented in this encounter Progress Notes Pradip Starr MD - 02/08/2014 5:17 AM PDTI saw and evaluated the patient. I agree with the findings and the plan of care as documented in the resident s note. PRADIP STARR MD [facility] [address]A [address] [facility] [place] [address] orrMaryam hill MD - 5:17 AM PDT [facility] DEPARTMENT OF SURGERY EMERGENCY GENERAL SURGERY Division [...] tolerated MARYAM RHODES MD PGY-1, General Surgery [phone] pager number [facility] A [address] [facility] [address] documented in this encoun ter Plan of Treatment +--------+ + + + + | Date | Type | Specialty | Care Team | Description | +--------+ + + + + | 03/22/ | Office | Cardiology | Randell Franks, | | | 2019 | Visit | | MD [address] | | | | | | [place], [place] | | | | | | [address] | | | | | | [phone] | | | | | | | | +--------+ + + + + | 04/04/ | Telephone-S | Surgery | Orquidea Cristobal, | | | 2019 | cheduled | | CLEANER [address] | | | | | | [place], [place] | | | | | | [address] | | | | | | [phone] | | | | | | | [...] PM PST)PROCEDURE NOTE (08/30/2015 6:16 PM PST)PROCEDURE Loretta CHE (08/30/2015 6:15 PM PST) + + | [...] MARQUAM | [address] | [place], [place] | | | JUSTINE DAWN OF CARE | [facility] | [address] | | | TESTS | | | [...] | 60 - 99 mg/dL | [facility] - | | | GLUCOSE, [...] MARQUAM | [address] | [place], [place] | | | [place] POINT OF CARE | [address] | [address] | | | TESTS | | | [...] AMES | [address] | [place], [place] | | | JUSTINE DAWN OF JAKY | [facility] | [address] | | | TESTS | | | | + + + + + CAPILLARY BLOOD GLUCOSE (NO CHG) POC (02/07/2014 9:50 PM PDT) + +---------+ [...] MARQUAM | [address] | [place], [place] | | | L[place] POINT OF CARE | [address] | [address] | | | TESTS | | | [...] [facility] | [address] | [place] [address] | | | SERVICES, | [address] [...] [facility] | [address] | [place] [address] | | | SERVICES, | [address] [...] KW[facility] | [address] | [place], [place] | | | D[place] POINT OF [facility] | [address] | [address] | | | TESTS | | | [...] [facility] | [address] | [place] [address] | | | SERVICES, CORE | PARK [...] + | [facility] | [address] | [place] [address] | | | SERVICES, CORE | CLARENCE [...] + | [facility] | [address] | [place] [address] | | | SERVICES, CORE | CLARENCE [...] [facility] | [address] | [place] [address] | | | SERVICES, CORE | PARK [...] | | | LABORATORY | | | ARMENIAN | | | SERVICES, | | | [...] | + + + + + | [employer] | [address] | [place] [address] | | | CLAIRE, CORE | [address] | | | [...] + | [facility] | [address] [facility] [[email or web address] [address] | [place], [place] | | | [place] [facility] [facility] | [address] | [address] | | | TESTS | | | [...] Lockhart, | | | | | | Ph.D./PathologistT:07/17 | | | | | | /14/rdl Clinical | | | | | | [...] pattern. | | | | | | Paddock Judge | | | | | | sections [...] Ph.D.PathologistElectron | | | | | | enriqueirma Signed 02/10/2014 | | | | | | 4:28PM | | | | + + + + + + + + | Specimen | + + | | + + + + + + + | Performing | Address | City/State/Zipcode | Phone Number | | Organization | | | | + + + + + | [facility] | [address] | [place] [address] | | | PATHOLOGY | [address] | | | + [...] injection 1 dose, | | | Starting Thu02/07/14 at 1911, | | | Until Thu02/07/14 at 1913 | | + +---+ | [...] | HOURS NEEDED, Starting Wed | | PM PDT [...] | | | (DIURETIC), First dose on Wed | | AM PDT | | | | | 02/08/14 at 0800, Until | | | | | | | Discontinued | | | | | | + +-------+ +-------+---+---+ +---+---+ | | | +---+---+ documented in this encounter
--- OUTSIDE RECORDS SUMMARY | ~2020-02-27 | XMS | Encounter Summary ---
Demographics + + + | Address | [address] | | | [place] [address] | + + + | Home Phone [...] + | Katalina Padilla | ECON | [address] | | | | | [place], [place] | | | | | [address] | | + + + + + | Ellie Vang | ECON | Unknown | | + + + + + Care Team Providers + +------+ + | Care Stock Clerk Name | Role | Phone | [...] | | | Procedures | | Rd [place], | | | | | [place] MNT | | [place] | | | | | INITIAL | | [address] | | | | | ASSESSMNT | | | | | | | X15MIN ND | | | | | | | [...] | 2012 | Visit | Center at [facility] [address] | [address] [facility] | mellitus (HCC) | | | | S [facility] | [address] | (Primary Dx); Morbid | | | | for Health and | [place], [place] | obesity (HCC) | | | | [place] [address] | [address] | | | | | [place], [place] | | | | | | [address] | | | | | | [phone] | | | +--------+---------+ + + + [...] PDTNutrition appointment, -try keeping food logs online: -www.[employer] -[employer] -[employer] -Aim for 0259-3797 calories a day -Increase physical activity -try Sit & Be Fit (on OPB Thu/ 6:00-6:30am or check at library) -Keep walking as able You're doing great! documented in this encounter Progress Notes Olga Lidia Montanez, HA - 04/14/2013 2:06 PM PDTFormatting of this [...] appropriate portions. Denies any binge eating. 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 Up [...] 1000/d--a more appropriate long-term range would be 6767-0150/day. Inadequat e calcium intake; did not address [...] w/ meals & snacks 2. Aim for 9287-9727 kcal/d 3. Keep food logs (at least [...] needed. Olga Lidia Montanez RD, [place] Pager [phone] documented in this en counter Plan of Treatment +--------+ + + + + | Date | Type | Specialty | Care Team | Description | +--------+ + + + + | 03/22/ | Office | Cardiology | Randell Franks, | | | 2019 | Visit | | MD [address] | | | | | | [facility] [place] | | | | | | [address] | | | | | | [phone] | | | | | | | | +--------+ + + + + | 04/04/ | Telephone-S | Surgery | Orquidea Cristobal, | | | 2019 | cheduhipolito | | PICKLING TANK OPERATOR [address] | | | | | | [place], [place] | | | | | | [address] | | | | | | [phone] | | | | | | | | +--------+ + + + + documented as of this encounter Procedures + +--------+ + + + | Procedure Name | Priori | Date/Time | Associated Diagnosis | Comments | | | ty | | | | + +--------+ + + + | ND MNT INITIAL | Routin | 04/14/2013 | [...]
--- OUTSIDE RECORDS SUMMARY | ~2020-02-27 | XMS | Encounter Summary ---
Demographics + + + | Address | [address] | | | [place] [address] | + + + | Home Phone [...] [place], [place] | | | | | [address] | | + + + + + | Ellie Vang | ECON | Unknown | | + + + + + Care Team Providers + +------+ + | Care Jar Filler Name | Role | Phone | + [...] [address] | | | | | | [facility] [place] | | | | | | [address] | | | | | | [phone] | | | | | | | | +--------+ + + + + | 04/04/ | Telephone-S | Surgery | Orquidea Cristobal, | | | 2019 | cheduled | | ICE GUARD INSPECTOR [address] | | | | | | [place], [place] | | | | | | [address] | | | | | | [phone] | | | | | | | | +--------+ + + + + documented as of this encounter Visit Diagnoses Not on filedocumented in this encounter"
--- OUTSIDE RECORDS SUMMARY | ~2020-02-27 | XMS | Encounter Summary ---
Demographics + + + | Address | [address] | | | [place] [address] | + + + | Home Phone [...] + | Katalina Padilla | ECON | [address] | | | | | [place], [place] | | | | | [address] | | + + + + + | Ellie Vang | ECON | Unknown | | + + + + + Care Team Providers + +------+ + | Care Music Engineer Name | Role | Phone | + +------+ + | Fadi Goodrich DO | PCP | | + +------+ + Encounter Details +--------+---------+ + + + | Date | Type | Department | Care Team | Description | +--------+---------+ + + + | 02/22/ | Office | Preoperative | Gay Hoff, | Preop examination | | 2018 | Visit | [facility] at | DNP,ANP [address] | (Primary Dx) | | | | [facility] | [facility] [address] | | | | | [address] | [place], [place] | | | | | [facility] | [address] | | | | | and Healing, | [phone] | | | | | Building [address] | | | | | | [facility] [place] | | | | | | [address] | | | | | | [phone] | | | +--------+---------+ + + + [...] location: Admitting - [facility], ninth floor [facility] Surgery Check in Time: The Preoperative [...] it is after office hours, call the [facility] tunnel elastic operator chainstitch at [phone] and ask them to page him or h er. documented in this encounter Progress Notes Carlyle Dejesus MA - 02/22/2018 1:10 PM PDTVenipuncture performed in clinic, blood griselda ple obtained from Right hand site 18 4:52 PM PDTNatashae, Gay Louie DNP,ANP - 02/22/2018 1:10 PM PDTFormatting of [...] d function per TTE ( 02/16/2017) from [facility]: Improved and stable. T2DM - controlled with [...] renal failure no electrolyte abnormalities no dialysis Urology/Compliance Specialist: Within Defined Limits except as noted below [...] mg by mouth two times daily. CALCIUM CRB&NSY-M4-CUZ07-GENIS ORAL Take 2 tablets by mouth two [...] 70 and over in adult ([facility]) Myalgia and myositis Nausea Neck pain Numbness Osteoarthritis of knee Palpitations Pneumonia Shortness of breath Staphylococcal infection Stroke ([facility]) TIA (transient ischemic attack) due to [...] Dr. Andie Brian Incisional hernia repair 03/01/2015 [facility]/ Dr. Cantu. Primary fascial closure and scar [...] 98ms, QTC 460ms, TTE ( 02/16/2017) - [facility] [facility] 1. Overall left ventricular systolic function is normal with, an EF between 60 - 65 %. 2. The right ventricle is normal in size and function. 3. No significant valvular abnormalities are noted. 4. In comparison to the previous (technically difficult) echocardiographic study done 01/01, no signfiicant changes are noted. TTE (02/17/2016) - [facility] Conclusions 1. There is normal left ventricular [...] and resp iratory change. TTE (11/07/2015) - [facility] Final Impressions: 1. The interpretation of images [...] d function per TTE ( 02/16/2017) form [facility]. Improved and stable. - Confirmed with Dr. [...] Advised to bring her own apparatus for [facility] [place]. GERD - On omeprazole. Chronic Fluid retention [...] to contribute to this patient's care. Gay Hoff DNP,ANP [facility] 4TH FLOOR [address] [facility] [address] I spent time (45 minutes, >50% [...] Ave | | | | | | [place], [place] | | | | | | [address] | | | | | | [phone] | | | | | | | | +--------+ + + + + | 04/04/ | Telephone-S | Surgery | Orquidea Cristobal, | | | 2019 | cheduled | | ADULT NURSE PRACTITIONER [address] | | | | | | [place], [place] | | | | | | [address] | | | | | | [phone] | | | | | | | [...] | + +--------+ + + + | AR COLLECTION VENOUS | Routin | 02/22/2018 | [...] + + + | [facility] | [address] | [place] [address] | | | SERVICES, CORE | CLARENCE [...] [facility] | [address] | [place] [address] | | | SERVICES, | [address] [...] [facility] | [address] | [place] [address] | | | SERVICES, | [address] [...] | [facility] | | considered for monitoring centrifugal wax molder glycemic control in patients with: | LABORATORY [...] [facility] | [address] | [place] [address] | | | SERVICES, SPECIAL | PARK [...] | | | LABORATORY | | | LAO | | | SERVICES, | | | [...] | + + + + + | [facility] | [address] | [place] [address] | | | SERVICES, CORE | CLARENCE [...] + + + + + + | QTC-BAZETT | [address] | ms | [facility] [...] + + + + + | [facility] | [address] | [place], [place] | | | CARDIOLOGY | [address] | [address] | | + + + + + documented in this encounter Visit Diagnoses + + | Diagnosis | + + | Preop examination - Primary Preoperative examination, unspecified | + + documented in this encounter
--- OUTSIDE RECORDS SUMMARY | ~2020-02-27 | XMS | Encounter Summary ---
Demographics + + + | Address | [address] | | | [place] [address] | + + + | Home Phone [...] + | Katalina Padilla | ECON | [address] | | | | | [place], [place] | | | | | [address] | | + + + + + | Ellie Vang | ECON | Unknown | | + + + + + Care Team Providers + +------+ + | Care Sheet Cutting Operator Name | Role | Phone | [...] | 2016 | on | Center at [place] [id number] | | | | | | [address] [facility] | | | | | | for Health and | | | | | | [facility], [address] | | | | | | [place], [place] | | | | | | [address] | | | | | | [phone] | | | +--------+ + + + [...] Ave | | | | | | [place], [place] | | | | | | [address] | | | | | | [phone] | | | | | | | | +--------+ + + + + | 04/04/ | Telephone-S | Surgery | Orquidea Cristobal, | | | 2019 | cheduled | | HANDLING TECH [address] | | | | | | [place], [place] | | | | | | [address] | | | | | | [phone] | | | | | | | | +--------+ + + + + documented as of this encounter Visit Diagnoses Not on filedocumented in this encounter"
--- OUTSIDE RECORDS SUMMARY | ~2020-02-27 | XMS | Encounter Summary ---
Demographics + + + | Address | [address] | | | [place] [address] | + + + | Home Phone [...] [place], [place] | | | | | [address] | | + + + + + | Ellie Vang | ECON | Unknown | | + + + + + Care Team Providers + +------+ + | Care Automotive Tire Worker Name | Role | Phone | [...] [address] | MD [address] | Review | | | | Ave Mailcode: CH4S | [place], [place] | | | | | [facility] | [address] | | | | | and Erick, | [phone] | | | | | [place] [address] | | | | | | Floor [place], [place] | | | | | | [address] | | | | | | [phone] | | | +--------+ + + + [...] [address] | | | | | | [place], [place] | | | | | | [address] | | | | | | [phone] | | | | | | | | +--------+ + + + + | 04/04/ | Telephone-S | Surgery | Orquidea Cristobal, | | | 2020 | sherrill | | GLASSWARE VERIFIER [address] | | | | | | [place] | | | | | | [address] | | | | | | [phone] | | | | | | | | +--------+ + + + + documented as of this encounter Visit Diagnoses Not on filedocumented in this encounter"
--- OUTSIDE RECORDS SUMMARY | ~2020-02-27 | XMS | Encounter Summary ---
Demographics + + + | Address | [address] | | | [place] [address] | + + + | Home Phone [...] [place], [place] | | | | | [address] | | + + + + + | Ellie Vang | ECON | Unknown | | + + + + + Care Team Providers + +------+ + | Care Corporate Analyst Name | Role | Phone | [...] | | | | | essential | [address] | [address] | | | | | hypertension | [address], | Ave | | | | | Type II or | [address] | [place], [place] | | | | | unspecified | [place], [place] | [address] | | | | | type | [address] | Phone: | | | | | diabetes | Phone: | [phone] | | | | | mellitus | [phone] | Fax: | | | | | without | Fax: | [phone] | | | | | mention of | [phone] | | | | | | complication [...] | Visit | Preventive at [facility] | MD [address] | mellitus (HCC) | | | | [address] | [place], [place] | (Primary Dx) | | | | [facility] | [address] | | | | | and Healing, | [phone] | | | | | [address] | | | | | | [place], [place] | | | | | | [address] | | | | | | [phone] | | | +--------+---------+ + + + [...] Take 50,000 Units by mouth twice w anne (on Thursday and ). FLUoxetine 40 mg [...] Wi ll discuss with Dr. Brian and barrel driller her best strategies for meeting weight loss [...] | +--------+ + + + + | 08/27/ | Office | Cardiology | Randell Franks, | | | 2019 | Visit | | MD [address] | | | | | | [place], [place] | | | | | | [address] | | | | | | [phone] | | | | | | | | +--------+ + + + + | 04/04/ | Telephone-S | Surgery | Orquidea Cristobal, | | | 2019 | cheduled | | DIGITAL IMAGING SPECIALIST [address] | | | | | | [place], [place] | | | | | | [address] | | | | | | [phone] | | | | | | | [...] | + + + + + | [facility] | [address] | [place] [address] | | | SERVICES, SPECIAL | PARK [...]
--- OUTSIDE RECORDS SUMMARY | ~2020-02-27 | XMS | Encounter Summary ---
Demographics + + + | Address | [address] | | | [place] [address] | + + + | Home Phone [...] [place], [place] | | | | | [address] | | + + + + + | Ellie Vang | ECON | Unknown | | + + + + + Care Team Providers + +------+ + | Care Network Relay Tester Name | Role | Phone | [...] | | 2020 | | Center at [facility] [address] | MD [address] | | | | | [address] [facility] | [address] | | | | | [facility] and | [place], [place] | | | | | [facility] 2 | [address] | | | | | [place], [place] | [phone] | | | | | [address] | | | | | | [phone] | | | +--------+ + + + [...] Ave | | | | | | [place], [place] | | | | | | [address] | | | | | | [phone] | | | | | | | | +--------+ + + + + | 04/04/ | Telephone-S | Surgery | Orquidea Cristobal, | | | 2019 | cheduled | | LICENSED RETAIL SUPERVISOR [address] | | | | | | [place], [place] | | | | | | [address] | | | | | | [phone] | | | | | | | | +--------+ + + + + documented as of this encounter Visit Diagnoses Not on filedocumented in this encounter"
--- OUTSIDE RECORDS SUMMARY | ~2020-02-27 | XMS | Encounter Summary ---
Demographics + + + | Address | [address] | | | [place] [address] | + + + | Home Phone [...] [place], [place] | | | | | [address] | | + + + + + | Ellie Vang | ECON | Unknown | | + + + + + Care Team Providers + +------+ + | Care Welt Rander Name | Role | Phone | + +------+ + | Fadi Goodrich DO | PCP | | + +------+ + Encounter Details +--------+ + + + + | Date | Type | Department | Care Team | Description | +--------+ + + + + | 07/06/ | Abstract | Digestive Health | hSereen Georges, | | | 2012 | | Center at [facility] [address] | ACNP [address] | | | | | [address] | Ave [place], [place] | | | | | for Health and | [address] | | | | | [facility], [facility] | | | | | | [place], [place] | | | | | | [address] | | | | | | | [...] Ave | | | | | | [place], [place] | | | | | | [address] | | | | | | [phone] | | | | | | | | +--------+ + + + + | 04/04/ | Telephone-S | Surgery | Orquidea Cristobal, | | | 2019 | sherrill | | GANG HEMSTITCHING MACHINE OPERATOR [address] | | | | | | [place], [place] | | | | | | [address] | | | | | | [phone] | | | | | | | | +--------+ + + + + documented as of this encounter Visit Diagnoses Not on filedocumented in this encounter"
--- OUTSIDE RECORDS SUMMARY | ~2020-02-27 | XMS | Encounter Summary ---
Demographics + + + | Address | [address] | | | [place] [address] | + + + | Home Phone [...] [place], [place] | | | | | [address] | | + + + + + | Ellie Vang | ECON | Unknown | | + + + + + Care Team Providers + +------+ + | Care Iron Assorter Name | Role | Phone | + [...] Hospital | | | | | | [place], [place] | | | | | | [address] | | | | | | [phone] | | | +--------+ + + + [...] [address] | | | | | | [place], [place] | | | | | | [address] | | | | | | [phone] | | | | | | | | +--------+ + + + + | 04/04/ | Telephone-S | Surgery | Orquidea Cristobal, | | | 2019 | sherrill | | INSURANCE SPECIALIST [address] | | | | | | [place], [place] | | | | | | [address] | | | | | | [phone] | | | | | | | [...] | | | | | | 3/3, 1/6. OPERATION #2: | | | | | [...] | | | | navigated a #5.5 [place]ian | | | | | | Ozzy [...] | | + +---------+ + + | [facility] DEPARTMENT OF | | | | | RADIOLOGY | | | | + +---------+ + + ANG/EXIST CATH/FU/EMB/INFU (05/14/1993 7:31 PM PDT) + + + [...] | | + +---------+ + + ANA/JAMEY CADET/ALEENA/TATO/AMYU (05/14/1993 2:20 PM PDT) + + + [...] | | + +---------+ + + | [facility] DEPARTMENT OF | | [...] | + +---------+ + + ANG/EXIST CATH/ALEENA/TATO/INFU (05/14/1993 6:45 AM PDT) + + + [...] | | | | | | a#5.5 Burundian sheath was | | | | | | secured into place. In | | | | | | a similar fashion, | | | | | | a#7.0 Burundian sheath was | | | | | [...] | | | | | The #7 Burundian Brite | | | | | | [...] Dr. | | | | | | LeonKaneerocolt. CLINICAL | | | | | | [...] | | + +---------+ + + | [facility] DEPARTMENT OF | | | | | RADIOLOGY | | | | + +---------+ + + documented in this encounter Visit Diagnoses Not on filedocumented in this encounter
--- OUTSIDE RECORDS SUMMARY | ~2020-02-27 | XMS | Encounter Summary ---
Demographics + + + | Address | [address] | | | [place] [address] | + + + | Home Phone [...] + | Katalina Padilla | ECON | [address] | | | | | [place], [place] | | | | | [address] | | + + + + + | Ellie Vang | ECON | Unknown | | + + + + + Care Team Providers + +------+ + | Care Visual Communications Instructor Name | Role | Phone | [...] | | 2017 | | Preventive at [facility] | MD [address] | | | | | [address] | [place], [place] | | | | | [facility] | [address] | | | | | and [place], | [phone] | | | | | Building [address] | | | | | | [place], [place] | | | | | | [address] | | | | | | [phone] | | | +--------+ + + + [...] [address] | | | | | | [place], [place] | | | | | | [address] | | | | | | [phone] | | | | | | | | +--------+ + + + + | 04/04/ | Telephone-S | Surgery | Orquidea Cristobal, | | | 2020 | cheduled | | REPORTING ANALYST [address] | | | | | | [place] | | | | | | [address] | | | | | | [phone] | | | | | | | | +--------+ + + + + documented as of this encounter Visit Diagnoses Not on filedocumented in this encounter"
--- OUTSIDE RECORDS SUMMARY | ~2020-02-27 | XMS | Encounter Summary ---
Demographics + + + | Address | [address] | | | [place] [address] | + + + | Home Phone [...] + | Katalina Padilla | ECON | [address] | | | | | [place], [place] | | | | | [address] | | + + + + + | Ellie Vang | ECON | Unknown | | + + + + + Care Team Providers + +------+ + | Care Embossing Machine Tender Name | Role | Phone [...] Physicians | | | | | | [facility] | [place], [facility] | | | | | | [place], [place] | Floor | | | | | | [address] | [place], [place] | | | | | | Phone: | [address] | | | | | | [phone] | Phone: | | | | | | | [phone] | | | | | | | Fax: | | | | | | | [phone] | +--------+--------+ + + + + Encounter [...] | [facility] [address] [place], | | | | | [address] | [place] [address] | | | | | Physicians [facility], | [phone] | | | | | 2nd Floor | | | | | | [place], [place] | | | | | | [address] | | | | | | [phone] | | | +--------+---------+ + + + [...] Axel Gonzales MD - 03/06/2014 1:15 PM [facility] Attending: Tam Starr MD Author: Axel Gonzales MD Date: 03/06/2014 ID: Elzbieta Cristina is a 39 y.o. female with acute cholecystitis s/p laparoscopic cholecystect mayr PROCEDURES: 02/07/14 - Laparoscopic cholecystectomy with intra-operative [...] a HIDA scan to be done in [place] to verify that she does not have a pos t-operative surgical complication. We will call her with the results of her labs and imagin g. If these all come back normal she will need to follow up with her PCP to address her elisa sea/vomiting. - CBC and LFT's today - HIDA scan ordered, to be done in [place] - Will call patient once results are back. If normal, no need for follow up with EGS. The patient was seen and examined with Dr. Starr who agrees with the above assessment and janina Gonzales MD PGY-2 General Surgery Resident Department of General Surgery Pager: [phone] I saw and evaluated the patient. I agree with the findings and the plan of care as dequan han in the resident s note. PRADIP STARR MD [facility]GERY AT [facility] [address] [facility] Mailcode: [id number] [place] [address] documented in this encoun ter Plan of Treatment +--------+ + + + + | Date | Type | Specialty | Care Team | Description | +--------+ + + + + | 03/22/ | Office | Cardiology | Randell Franks, | | | 2019 | Visit | | MD [address] | | | | | | [place], [place] | | | | | | [address] | | | | | | [phone] | | | | | | | | +--------+ + + + + | 04/04/ | Telephone-S | Surgery | Orquidea Cristobal, | | | 2019 | cheduled | | PONY WORKER [address] | | | | | | [place], [place] | | | | | | [address] | | | | | | [phone] | | | | | | | [...] NKECHI ROBERTS | [address] | [place] [address] | | | SERVICES, CORE | [address] | | | + + + + + documented in this encounter Visit Diagnoses + + | Diagnosis | + + | Cholecystitis - Primary Cholecystitis, unspecified | + + documented in this encounter
--- OUTSIDE RECORDS SUMMARY | ~2020-02-27 | XMS | Encounter Summary ---
Demographics + + + | Address | [address] | | | [place] [address] | + + + | Home Phone [...] + | Katalina Padilla | ECON | [address] | | | | | [place], [place] | | | | | [address] | | + + + + + | Ellie Vang | ECON | Unknown | | + + + + + Care Team Providers + +------+ + | Care Oracle Financials Developer Name | Role | Phone | [...] + + | 02/26/ | Telephone | Digestive Health | Clinic, Surgery | Follow-up visit | | 2020 | | Center [place] [address] [address] | | | | | | [facility] | | | | | | for Health and | | | | | | [facility] 2 | | | | | | [place], [place] | | | | | | [address] | | | | | | [phone] | | | +--------+ + + + [...] | Visit | | MD [address] | | | | | | [place], [place] | | | | | | [address] | | | | | | [phone] | | | | | | | | +--------+ + + + + | 04/04/ | Telephone-S | Surgery | Orquidea Cristobal, | | | 2019 | cheduled | | BROKERAGE CLERK [address] | | | | | | [place], [place] | | | | | | [address] | | | | | | [phone] | | | | | | | | +--------+ + + + + documented as of this encounter Visit Diagnoses Not on filedocumented in this encounter"
--- OUTSIDE RECORDS SUMMARY | ~2020-02-27 | XMS | Encounter Summary ---
Demographics + + + | Address | [address] | | | [place] [address] | + + + | Home Phone [...] + | Katalina Padilla | ECON | [address] | | | | | [place], [place] | | | | | [address] | | + + + + + | Ellie Vang | ECON | Unknown | | + + + + + Care Team Providers + +------+ + | Care Operating Engineer Name | Role | Phone | [...] | | | | | | [place], [place] | | | | | | [address] | | | | | | [phone] | | | +--------+ + + + [...] Ave | | | | | | [place], [place] | | | | | | [address] | | | | | | [phone] | | | | | | | | +--------+ + + + + | 04/04/ | Telephone-S | Surgery | Orquidea Cristobal, | | | 2019 | sherrill | | LICENSED OCCUPATIONAL THERAPY ASSISTANT [address] | | | | | | [place], [place] | | | | | | [address] | | | | | | [phone] | | | | | | | | +--------+ + + + + documented as of this encounter Visit Diagnoses Not on filedocumented in this encounter"
--- OUTSIDE RECORDS SUMMARY | ~2020-02-27 | XMS | Encounter Summary ---
Demographics + + + | Address | [address] | | | [place] [address] | + + + | Home Phone [...] [place], [place] | | | | | [address] | | + + + + + | Ellie Vang | ECON | Unknown | | + + + + + Care Team Providers + +------+ + | Care Customer Records Division Supervisor Name | Role | Phone | + +------+ + | Fadi Goodrich DO | PCP | | + +------+ + Encounter Details +--------+------+ + + + | Date | Type | Department | Care Team | Description | +--------+------+ + + + | 10/12/ | Lab | Laboratory at [facility] | | | | 2019 | | [address] | | | | | | [place] [facility] | | | | | | and Healing, | | | | | | Building [address] | | | | | | [place], [place] | | | | | | [address] | | | | | | [phone] | | | +--------+------+ + + + [...] [address] | | | | | | [place], [place] | | | | | | [address] | | | | | | [phone] | | | | | | | | +--------+ + + + + | 04/04/ | Telephone-S | Surgery | Orquidea Cristobal, | | | 2019 | sherrill | | DATA SCIENCES DIRECTOR [address] | | | | | | [place], [place] | | | | | | [address] | | | | | | [phone] | | | | | | | [...] | + + + + + | [facility] | [address] | [place] [address] | | | LYDIA RANGEL | CLARENCE [...] INTFC | | | | determined by [facility] | | | | | | Laboratories. See | | | | | | Compliance Statement B: | | | | | | DuraFizz/CSPerformed | | | | | | by [place],[address] | | | | | | Liliana Martinez, [facility] [place] | | | | | | [address] | | | | | | [phone].Transaq. | | | | | | Ismael [...] [facility] | [address] | [place], [place] | | | UNIV PTH - INTFC | | [address] | | + + + + + [...] B: | | | | | | Transaq.PersonSpot/CSPerformed | | | | | | by [place],[address] | | | | | | [facility],[place] | | | | | | [address] | | | | | | [phone].Klone Lablab. | | | | | | com, [...] + + | [facility] | [address] [facility] | [place], [place] | | | UNIV PTH - INTFC | | [address] | | + + + + + [...] [facility] | | | (YEN NOAH) | [facility],[address] | | REG UNIV | | | SERUM | [place], [place] | | PTH - INTFC | | | | [address] | | | | | | [phone].Transaq. | | | | | | com, [...] B: | | | | | | Transaq.PersonSpot/CS | | | | + + + + + + + + | Specimen | + + | Blood - Blood | | (substance) | + + + + + + + | Performing | Address | City/State/Zipcode | Phone Number | | Organization | | | | + + + + + | [facility] | [address] | [place], [place] | | | UNIV PTH - INTFC | | [address] | | + + + + + [...] [facility] | [address] | [place] [address] | | | SERVICES, CORE | PARK [...] | + + + + + | [facility] | [address] | [place] [address] | | | SERVICES, LYDIA | CLARENCE [...] INTERPRETIVE | 70 - 180 nmol/L | [facility] | | | WHOLE [...] | | | | | determined by [facility] | | | | | | Laboratories. See | | | | | | Compliance Statement B: | | | | | | Transaq.PersonSpot/CSPerformed | | | | | | by [place],[address] | | | | | | Liliana Martinez [facility] [place] [facility] [place] | | | | | | [address] | | | | | | [phone].Transaq. | | | | | | com, [...] [facility] | [address] | [place], [place] | | | UNIV PTH - INTFC | | [address] | | + + + + + [...] [facility] | [address] | [place] [address] | | | SERVICES, CORE | CLARENCE [...] | | | | | determined by [facility] | | | | | | Laboratories. See | | | | | | Compliance Statement B: | | | | | | Transaq.PersonSpot/CSPerformed | | | | | | by [place],[address] | | | | | | Lil[facility],[place] | | | | | | [address] | | | | | | [phone].Transaq. | | | | | | Ismael [...] [facility] | [address] | [place], [place] | | | UNIV PTH - INTFC | | [address] | | + + + + + [...] [facility] | [address] | [place] [address] | | | SERVICES, CORE | PARK [...] | + + + + + | [facility] | [address] | [place] [address] | | | SERVICES, SPECIAL | PARK [...] | + + + + + | [facility] | [address] | [place] [address] | | | SERVICES, CORE | CLARENCE [...] at | | | | | | [email or web address] | | | | | | med by [facility] | | | | | | Laboratories,[address] [place] [address] | | | | | | [place] [address] | | | | | | [phone].Transaq. | | | | | | utah [...] [facility] | [address] | [place], [place] | | | UNIV PTH - INTFC | | [address] | | + + + + + [...] + + + | [facility] | [address] | [place] [address] | | | SERVICES, CORE | [address] | | | + + + + + documented in this encounter Visit Diagnoses Not on filedocumented in this encounter"
--- OUTSIDE RECORDS SUMMARY | ~2020-02-27 | XMS | Encounter Summary ---
Demographics + + + | Address | [address] | | | [place] [address] | + + + | Home Phone [...] [place], [place] | | | | | [address] | | + + + + + | Ellie Vang | ECON | Unknown | | + + + + + Care Team Providers + +------+ + | Care Coal Equipment Operator Name | Role | Phone [...] [address] | | | | | | [facility] [place] | | | | | | [address] | | | | | | [phone] | | | | | | | | +--------+ + + + + | 04/04/ | Telephone-S | Surgery | Orquidea Cristobal, | | | 2019 | cheduled | | ENGINE WIPER [address] | | | | | | [place], [place] | | | | | | [address] | | | | | | [phone] | | | | | | | | +--------+ + + + + documented as of this encounter Visit Diagnoses Not on filedocumented in this encounter"
--- OUTSIDE RECORDS SUMMARY | ~2020-02-27 | XMS | Encounter Summary ---
Demographics + + + | Address | [address] | | | [place] [address] | + + + | Home Phone [...] + | Katalina Padilla | ECON | [address] | | | | | [place], [place] | | | | | [address] | | + + + + + | Ellie Vang | ECON | Unknown | | + + + + + Care Team Providers + +------+ + | Care Game Farm Helper Name | Role | Phone | [...] | | 2019 | | Preventive at [facility] | MD [address] | stop any | | | | [address] | [place], [place] | medications? ) | | | | [facility] | [address] | | | | | and [place], | [phone] | | | | | [place] [address] | | | | | | [place], [place] | | | | | | [address] | | | | | | [phone] | | | +--------+ + + + [...] [address] | | | | | | [place], [place] | | | | | | [address] | | | | | | [phone] | | | | | | | | +--------+ + + + + | 04/04/ | Telephone-S | Surgery | Orquidea Cristobal, | | | 2019 | cheduled | | FIRE CONTROL TECHNICIAN B [address] | | | | | | [place], [place] | | | | | | [address] | | | | | | [phone] | | | | | | | | +--------+ + + + + documented as of this encounter Visit Diagnoses Not on filedocumented in this encounter"
--- OUTSIDE RECORDS SUMMARY | ~2020-02-27 | XMS | Encounter Summary ---
Demographics + + + | Address | [address] | | | [place] [address] | + + + | Home Phone [...] + | Katalina Padilla | ECON | [address] | | | | | [place], [place] | | | | | [address] | | + + + + + | Ellie Vang | ECON | Unknown | | + + + + + Care Team Providers + +------+ + | Care Automation Engineering Technician Name | Role | Phone [...] | | | | | bypass | [place], [place] | Health and | | | | | Nausea and | [address] | Healing, | | | | | vomiting, | Phone: | Building [address] | | | | | intractabili | | [place], [place] | | | | | ty of | Fax: | [address] | | | | | vomiting not | [phone] | Phone: | | | | | specified, | | [phone] | | | | | unspecified | | Fax: | | | | | vomiting | | [phone] | | | | | type | [...] | | | | | | [facility] | | | | | | | UPPER GI | | | | | | | ENDOSCOPY,BI | | | | | | | OPSY [facility] UP | | | | | | [...] | | 2017 | | Center at [facility] [address] | MD [address] | | | | | [address] | [place], [place] | | | | | [facility] and | [address] | | | | | [facility] 2 | [phone] | | | | | [place], [place] | | | | | | [address] | | | | | | [phone] | | | +--------+ + + + [...] Ave | | | | | | [place], [place] | | | | | | [address] | | | | | | [phone] | | | | | | | | +--------+ + + + + | 04/04/ | Telephone-S | Surgery | Orquidea Cristobal, | | | 2019 | cheduled | | RN PERIOPERATIVE [address] | | | | | | [place], [place] | | | | | | [address] | | | | | | [phone] | | | | | | | [...]
--- OUTSIDE RECORDS SUMMARY | ~2020-02-27 | XMS | Encounter Summary ---
Demographics + + + | Address | [address] | | | [place] [address] | + + + | Home Phone [...] + | Katalina Padilla | ECON | [address] | | | | | [place], [place] | | | | | [address] | | + + + + + | Ellie Vang | ECON | Unknown | | + + + + + Care Team Providers + +------+ + | Care Health Information Administrator Name | Role | Phone | [...] | | | | | | | [place] for | | | | | | | Health and | | | | | | | Healing, | | | | | | | Building [address] | | | | | | | [place], [place] | | | | | | | [address] | | | | | | | Phone: | | | | | | | [phone] | | | | | | | Fax: | | | | | | | [phone] | +--------+--------+ + + + + Encounter Details +--------+---------+ + + + | Date | Type | Department | Care Team | Description | +--------+---------+ + + + | 08/28/ | Office | Digestive Health | [address] | Morbid obesity (HCC) | | 2015 | Visit | Center at [facility] [address] | [address] | (Primary Dx); Type | | | | [address] | [address] [facility], | 2 diabetes mellitus | | | | for Health and | [place] [address] | (HCC) | | | | [facility] 2 | [phone] | | | | | [place], [place] | | | | | | [address] | | | | | | [phone] | | | +--------+---------+ + + + [...] of Visit: 12:29 to 12:57 (28 minutes tgdq-da-nxlk with patient) SUBJECTIVE: Trying to follow a [...] post-surgery diet progression. 4. Call or send Vital Farmst message to dietitian with any questions. Contact information was provided. Follow up with dietitian prior to surgery to review post-surgical recommendations. Yuli Childs RD, CNSC, LD Pager# [phone] documented in this enco unter Plan of Treatment +--------+ + + + + | Date | Type | Specialty | Care Team | Description | +--------+ + + + + | 03/22/ | Office | Cardiology | Randell Franks, | | | 2019 | Visit | | MD [address] | | | | | | [place], [place] | | | | | | [address] | | | | | | [phone] | | | | | | | | +--------+ + + + + | 04/04/ | Telephone-S | Surgery | Orquidea Cristobal, | | | 2019 | cheduhipolito | | MULE SPINNER [address] | | | | | | [place], [place] | | | | | | [address] | | | | | | [phone] | | | | | | | | +--------+ + + + + documented as of this encounter Procedures + +--------+ + + + | Procedure Name | Priori | Date/Time | Associated Diagnosis | Comments | | | ty | | | | + +--------+ + + + | SC MNT RE-ASSESSMNT | Routin | 08/28/2014 | Morbid obesity | | | X15MIN | e | 4:45 PM | (HCC) Type 2 | | [...]
--- OUTSIDE RECORDS SUMMARY | ~2020-02-27 | XMS | Encounter Summary ---
Demographics + + + | Address | [address] | | | [place] [address] | + + + | Home Phone [...] + | Katalina Padilla | ECON | [address] | | | | | [place], [place] | | | | | [address] | | + + + + + | Ellie Vang | ECON | Unknown | | + + + + + Care Team Providers + +------+ + | Care Accountant Supervisor Name | Role | Phone | [...] | 2018 | Review | Center at [facility] [address] | ACNP [address] | Recommendations | | | | [address] [facility] | [address] [place], [place] | | | | | [facility] and | [address] | | | | | [facility] 2 | [phone] | | | | | [place], [place] | | | | | | [address] | | | | | | [phone] | | | +--------+ + + + [...] [address] | | | | | | [place], [place] | | | | | | [address] | | | | | | [phone] | | | | | | | | +--------+ + + + + | 04/04/ | Telephone-S | Surgery | Orquidea Cristobal, | | | 2020 | sherrill | | APPIAN DEVELOPER [address] | | | | | | [place] | | | | | | [address] | | | | | | [phone] | | | | | | | | +--------+ + + + + documented as of this encounter Visit Diagnoses Not on filedocumented in this encounter"
--- OUTSIDE RECORDS SUMMARY | ~2020-02-27 | XMS | Encounter Summary ---
Demographics + + + | Address | [address] | | | [place] [address] | + + + | Home Phone [...] [place], [place] | | | | | [address] | | + + + + + | Ellie Vang | ECON | Unknown | | + + + + + Care Team Providers + +------+ + | Care Ssn/Ssbn Assistant Navigator Name | Role | Phone | + [...] | 2015 | Visit | Center at [facility] [address] | | (Primary Dx) | | | | [address] [facility] | | | | | | for Health and | | | | | | [facility], Building 2 | | | | | | [facility] [place] | | | | | | [address] | | | | | | [phone] | | | +--------+---------+ + + + [...] of Class: 2:00 until 3:00 (60 minutes chcd-fe-xnlx with patient) OBJECTIVE: Height: Ht Readings from [...] information. Yes Yuli Childs RD, [facility], [place] Pager# [phone] documented in this enc ounter Plan of Treatment +--------+ + + + + | Date | Type | Specialty | Care Team | Description | +--------+ + + + + | 03/22/ | Office | Cardiology | Randell Franks, | | | 2019 | Visit | | [address] | | | | | | [place], [place] | | | | | | [address] | | | | | | [phone] | | | | | | | | +--------+ + + + + | 04/04/ | Telephone-S | Surgery | Orquidea Cristobal, | | | 2019 | sherrill | | ADMINISTRATIVE STAFF SUPERVISOR [address] | | | | | | [place], [place] | | | | | | [address] | | | | | | [phone] | | | | | | | | +--------+ + + + + documented as of this encounter Visit Diagnoses + + | Diagnosis | + + | Morbid obesity (HCC) - Primary Morbid obesity | + + documented in this encounter
--- OUTSIDE RECORDS SUMMARY | ~2020-02-27 | XMS | Encounter Summary ---
Demographics + + + | Address | [address] | | | [place] [address] | + + + | Home Phone [...] [place], [place] | | | | | [address] | | + + + + + | Ellie Vang | ECON | Unknown | | + + + + + Care Team Providers + +------+ + | Care Enologist Name | Role | Phone | + [...] Ave | | | | | | [place], [place] | | | | | | [address] | | | | | | [phone] | | | | | | | | +--------+ + + + + | 04/04/ | Telephone-S | Surgery | Orquidea Cristobal, | | | 2019 | cheduled | | RV MECHANIC [address] | | | | | | [place], [place] | | | | | | [address] | | | | | | [phone] | | | | | | | | +--------+ + + + + documented as of this encounter Visit Diagnoses Not on filedocumented in this encounter"
--- OUTSIDE RECORDS SUMMARY | ~2020-02-27 | XMS | Encounter Summary ---
Demographics + + + | Address | [address] | | | [place] [address] | + + + | Home Phone [...] Author | [facility] | | | and Jeffana | + + + | Organization | [facility] | | | and [...] Team Providers + +------+ + | Care Robotic Welder Name | Role | Phone | + +------+ + PCP | Unavailable | + +------+ + Encounter Details +--------+ + + + + | Date | Type | Department | Care Team | Description | +--------+ + + + + | 07// | Orders Only | [facility] | Sulema Altamirano | | | 2019 | | [address] | [address] | | | | | [address] | [address] | | | | | [place], [place] | [place] [address] | | | | | [address] | [phone] | | | | | [phone] | | | +--------+ + + + [...] | | | | Visit | | [address] | | | | | | [place] [address] | | | | | | [phone] | | | | | | | | +--------+ + + + + | 03/29/ | Office | Cardiology | Sulema Altamirano | | | 2019 | Visit | | [address] | | | | | | [address] | | | | | | [place] [address] | | | | | | [phone] | | | | | | | [...] 0.61 m/s | | | MV Dec [place]: 2.43 m/s2 MV DecT: 247.51 ms MV E Jeffrey: 0.60 | | | m/s MV E/A Ratio: 0.98 MV PHT: 71.78 ms MVA By PHT: 3.06 | | | cm2 Septal e': 0.06 m/s Septal E/e': 9.54 Lateral e': 0.10 | | | m/s Lateral E/e': 5.84 RAP: 5 mmHg RV s': 0.11 m/s | | | Anesthetic Assistant: JESSICA Authenticated by: Darryl Merrill Report Date/Time: [...] cmLVIDd: 4.70 cmLVPWd: 0.79 cmLVOT Area: 3.58 [id number] Diam: 2.13 cm%FS: 39.25 | | %EF(Teich): [...] | Index (A-L): 14.72 ml/m2LAAs A2C: 10.03 [id number] A-L A2C: 22.69 mlLALs A2C: 3.76 | | cmLAAs A4C: 13.41 [id number] A-L A4C: 36.80 mlLALs A4C: 4.14 cmRAAs: 11.18 | | [id number] A-L: 22.84 mlRAESV MOD: 22.10 mlRALs: 4.64 cmTAPSE: 2.04 cmAV maxPG: | | 6.55 mmHgAV meanP.52 mmHgAV Vmax: 1.27 m/Genesis Vmean: 0.88 m/Genesis VTI: 26.50 | | cmAVA Vmax: 2.49 cm2AVA (VTI): 2.39 [id number] Vmax: 0.00 cm2/m2AVAI (VTI): 0.00 | | cm2/m2LVOT maxP.17 mmHgLVOT meanP.82 mmHgLVSI Dopp: 30.83 ml/m2LVSV Dopp: | | 63.52 mlLVOT Vmax: 0.89 m/sLVOT Vmean: 0.65 m/sLVOT VTI: 17.71 cmMV A Jeffrey: | | 0.61 m/sMV Dec King[place]: 2.43 m/s2MV DecT: 247.51 msMV E Jeffrey: 0.60 m/sMV E/A Ratio: | | 0.98MV PHT: 71.78 msMVA By PHT: 3.06 [id number] e': 0.06 m/sSeptal E/e': | | 9.54Lateral e': 0.10 m/sLateral E/e': 5.84RAP: 5 mmHgRV s': 0.11 m/s | | Anesthetic Assistant: DHAuthenticated by: Darryl [facility]Select [facility] [place] Date/Time: 02-22-2019 20:8:36 | | IMPRESSION: 1. [...] A Jeffrey: 0.61 m/s | |MV Dec [place]: 2.43 m/s2 | |MV DecT: 247.51 ms | |MV E Jeffrey: 0.60 m/s | |MV E/A Ratio: 0.98 | |MV PHT: 71.78 ms | |MVA By PHT: 3.06 cm2 | |Septal e': 0.06 m/s | |Septal E/e': 9.54 | |Lateral e': 0.10 m/s | |Lateral E/e': 5.84 | |RAP: 5 mmHg | |RV s': 0.11 m/s | | | |Anesthetic Assistant: JESSICA | |Authenticated by: Darryl Merrill | [...]
--- OUTSIDE RECORDS SUMMARY | ~2020-02-27 | XMS | Encounter Summary ---
Demographics + + + | Address | [address] | | | [place] [address] | + + + | Home Phone [...] [place], [place] | | | | | [address] | | + + + + + | Ellie Vang | ECON | Unknown | | + + + + + Care Team Providers + +------+ + | Care Electrical Engineering Professor Name | Role | Phone | [...] + + | 05/20/ | Telephone | [facility] | Chilo | Other | | 2019 | | Center at [facility] 3485 | MD [address] | | | | | [address] [facility] | [address] | | | | | [facility] and | [place], [place] | | | | | [facility] 2 | [address] | | | | | [place], [place] | [phone] | | | | | [address] | | | | | | [phone] | | | +--------+ + + + [...] [address] | | | | | | [place], [place] | | | | | | [address] | | | | | | [phone] | | | | | | | | +--------+ + + + + | 04/04/ | Telephone-S | Surgery | Orquidea Cristobal, | | | 2019 | cheduled | | 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
--- OUTSIDE RECORDS SUMMARY | ~2020-02-27 | XMS | Encounter Summary ---
Demographics + + + | Address | [address] | | | [place] [address] | + + + | Home Phone [...] [place], [place] | | | | | [address] | | + + + + + | Ellie Vang | ECON | Unknown | | + + + + + Care Team Providers + +------+ + | Care Human Resources Advisor Name | Role | Phone | [...] | | [address] | [place], [place] | | | | | [facility] | [address] | | | | | and [place], | [phone] | | | | | Building [address] | | | | | | [facility] [place] | | | | | | [address] | | | | | | [phone] | | | +--------+ + + + [...] Ave | | | | | | [place], [place] | | | | | | [address] | | | | | | [phone] | | | | | | | | +--------+ + + + + | 04/04/ | Telephone-S | Surgery | Orquidea Cristobal, | | | 2019 | cheduled | | 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
--- OUTSIDE RECORDS SUMMARY | ~2020-02-27 | XMS | Encounter Summary ---
Demographics + + + | Address | [address] | | | [place] [address] | + + + | Home Phone [...] [place], [place] | | | | | [address] | | + + + + + | Ellie Vang | ECON | Unknown | | + + + + + Care Team Providers + +------+ + | Care Concrete Precast Moulder Name | Role | Phone | + +------+ + | Kenyatta Cardenas MD | PCP | | + +------+ + Encounter Details +--------+ + + + + | Date | Type | Department | Care Team | Description | +--------+ + + + + | 03/01/ | Procedure | Diagnostic Imaging | | | | 2019 | Pass | Services at [facility] | | | | | | [address] | | | | | | Lesly ARBOLEDA | | | | | | [facility], [address] [place] [address] | | | | | | [place], [place] | | | | | | [address] | | | | | | [phone] | | | +--------+ + + + [...] | | 2020 | Visit | | [address] | | | | | | [place], [place] | | | | | | [address] | | | | | | [phone] | | | | | | | | +--------+ + + + + | 04/04/ | Telephone-S | Surgery | Orquidea Cristobal, | | | 2020 | sherrill | | WELL DRILL OPERATOR ROTARY DRILL [address] | | | | | | [place] | | | | | | [address] | | | | | | [phone] | | | | | | | | +--------+ + + + + documented as of this encounter Visit Diagnoses Not on filedocumented in this encounter"
--- OUTSIDE RECORDS SUMMARY | ~2020-02-27 | XMS | Encounter Summary ---
Demographics + + + | Address | [address] | | | [place] [address] | + + + | Home Phone [...] [place], [place] | | | | | [address] | | + + + + + | Ellie Vang | ECON | Unknown | | + + + + + Care Team Providers + +------+ + | Care Management And Budget Analyst Name | Role | Phone | + +------+ + | Fadi Goodrich DO | PCP | | + +------+ + Encounter Details +--------+ + + + + | Date | Type | Department | Care Team | Description | +--------+ + + + + | 03/04/ | Telephone | Digestive Health | Ion Pandey, | | | 2018 | | Center at [facility] [address]85 | MD [address] | | | | | [address] | [place], [place] | | | | | [facility] and | [address] | | | | | Healing, [facility] 2 | | | | | | [place], [place] | | | | | | [address] | | | | | | | [...] | | 2019 | Visit | | [address] | | | | | | [place], [place] | | | | | | [address] | | | | | | [phone] | | | | | | | | +--------+ + + + + | 04/04/ | Telephone-S | Surgery | Orquidea Cristobal, | | | 2019 | cheduhipolito | | DRILL RIG OPERATOR [address] | | | | | | [place] | | | | | | [address] | | | | | | [phone] | | | | | | | | +--------+ + + + + documented as of this encounter Visit Diagnoses Not on filedocumented in this encounter"
--- OUTSIDE RECORDS SUMMARY | ~2020-02-27 | XMS | Encounter Summary ---
Demographics + + + | Address | [address] | | | [place] [address] | + + + | Home Phone [...] + | Katalina Padilla | ECON | [address] | | | | | [place], [place] | | | | | [address] | | + + + + + | Ellie Vang | ECON | Unknown | | + + + + + Care Team Providers + +------+ + | Care Apparatus Cleaner Name | Role | Phone | [...] | Visit | Center at [facility] 9137 | | (Primary Dx) | | | | S [facility] | | | | | | for Health and | | | | | | Healing, [address] | | | | | | [place], [place] | | | | | | [address] | | | | | | [phone] | | | +--------+---------+ + + + [...] of Class: 1055 until 1155 (60 minutes rxxc-rm-[id number] with patient) Teaching Methods: PowerPoint and verbal [...] a journal with fluid/protein d. Transportation 7. [facility] 8. Surgical [...] Ave | | | | | | [place], [place] | | | | | | [address] | | | | | | [phone] | | | | | | | | +--------+ + + + + | 04/04/ | Telephone-S | Surgery | Orquidea Cristobal, | | | 2019 | cheduled | | REWRITE EDITOR [address] | | | | | | [place], [place] | | | | | | [address] | | | | | | [phone] | | | | | | | | +--------+ + + + + documented as of this encounter Visit Diagnoses + + | Diagnosis | + + | Morbid obesity (HCC) - Primary Morbid obesity | + + documented in this encounter"
--- OUTSIDE RECORDS SUMMARY | ~2020-02-27 | XMS | Encounter Summary ---
Demographics + + + | Address | [address] | | | [place] [address] | + + + | Home Phone [...] [place], [place] | | | | | [address] | | + + + + + | Ellie Vang | ECON | Unknown | | + + + + + Care Team Providers + +------+ + | Care Embossing Unit Operator Name | Role | Phone [...] Ave | | | | | | [place], [place] | | | | | | [address] | | | | | | [phone] | | | | | | | | +--------+ + + + + | 04/04/ | Telephone-S | Surgery | Orquidea Cristobal, | | | 2019 | sherrill | | CHANGE CONTROL SPECIALIST [address] | | | | | | [facility] [place] | | | | | | [address] | | | | | | [phone] | | | | | | | | +--------+ + + + + documented as of this encounter Visit Diagnoses Not on filedocumented in this encounter"
--- OUTSIDE RECORDS SUMMARY | ~2020-02-27 | XMS | Encounter Summary ---
Demographics + + + | Address | [address] | | | [place] [address] | + + + | Home Phone [...] Team Providers + +------+ + | Care Advanced Practice Nurse Psychotherapist Name | Role | Phone | + +------+ + | Jorje Hill | PCP | | + +------+ + Reason for Visit +---------+ + | Reason | Comments | +---------+ + | Results | 01/04/20 | +---------+ + Encounter Details +--------+ + + + + | Date | Type | Department | Care Team | Description | +--------+ + + + + | 01/04/ | Documentati | [facility] | Banegas, | Results (01/04/20) | | 2020 | on | NEPHROLOGY JESUS | Mary Pendleton | | | | | [address] | Batch And Furnace Manager | | | | | [address] [facility] [place] | | | | | | [address] | | | | | | [phone] | | | +--------+ + + + [...] | 2019 | Office | | MD [address] | | | | Visit | | [address] | | | | | | [place] [address] | | | | | | [phone] | | | | | | | | +--------+ + + + + | 03/29/ | Office | Cardiology | Sulema Altamirano | | | 2019 | Visit | | [address] | | | | | | [address] | | | | | | [place] [address] | | | | | | [phone] | | | | | | | [...] + documented in this encounter Results CBC with Manual Differential (01/04/2020) + [...]
--- OUTSIDE RECORDS SUMMARY | ~2020-02-27 | XMS | Encounter Summary ---
Demographics + + + | Address | [address] | | | [place] [address] | + + + | Home Phone [...] [place], [place] | | | | | [address] | | + + + + + | Ellie Vang | ECON | Unknown | | + + + + + Care Team Providers + +------+ + | Care Notereader Name | Role | Phone | + +------+ + | Fadi Goodrich DO | PCP | | + +------+ + Encounter Details +--------+------+ + + + | Date | Type | Department | Care Team | Description | +--------+------+ + + + | 12/05/ | Lab | Laboratory at [facility] | | Type 2 diabetes | | 2013 | | [address] | | mellitus (HCC) | | | | Center for Health | | | | | | and Healing, | | | | | | Building 2 | | | | | | [place], [place] | | | | | | [address] | | | | | | [phone] | | | +--------+------+ + + + [...] Ave | | | | | | [place], [place] | | | | | | [address] | | | | | | [phone] | | | | | | | | +--------+ + + + + | 04/04/ | Telephone-S | Surgery | Orquidea Cristobal, | | | 2019 | cheduled | | SPLITTER MACHINE [address] | | | | | | [facility], [place] | | | | | | [address] | | | | | | [phone] | | | | | | | [...] NKECHI ALEJANDRA | [address] | [place] [address] | | | SERVICES, SPECIAL | PARK [...]
--- OUTSIDE RECORDS SUMMARY | ~2020-02-27 | XMS | Encounter Summary ---
Demographics + + + | Address | [address] | | | [place] [address] | + + + | Home Phone [...] [place], [place] | | | | | [address] | | + + + + + | Ellie Vang | ECON | Unknown | | + + + + + Care Team Providers + +------+ + | Care Centerless Grinder Operator Name | Role | Phone | + +------+ + | Kenyatta Cardenas MD | PCP | | + +------+ + Reason for Visit + + + | Reason | Comments | + + + | Pre-op evaluation | | + + + Encounter Details +--------+ + + + + | Date | Type | Department | Care Team | Description | +--------+ + + + + | 07/29/ | Telephone-S | Preoperative | | Pre-op evaluation | | 2020 | cheduled | [facility] | | | | | | [facility] | | | | | | [address] | | | | | | [facility] | | | | | | and Healing, | | | | | | Building [address] | | | | | | [place], [place] | | | | | | [address] | | | | | | [phone] | | | +--------+ + + + + Anesthesia Record + + + + + | Procedure Name | Responsible | Anesthesia Start | Anesthesia Stop Time | | | Anesthesiologist | Time | | + + + + + | OPEN VENTRAL HERNIA | Andie Hope MD | 08/19/19 1417 | 08/19/19 4259 | | REPAIR (N/A ) | | [...] Ladd, | Sheree Herrmann, | | | , POLINA; Endotracheal | UNDERWRITING SPECIALIST | UNDERWRITING SPECIALIST | | | Tube; 7.5; Oral; Cuffed; [...] PM PST PREOPERATIVE INSTRUCTIONS Surgery check-in location: [facility] Surgery Check in Time: you will receive a call 1-3 business days before your surgery confi rming your exact arrival/check-in time for your surgery day. We know that planning for surg eileen can be stressful and involve a lot of family/friend/transportation coordination as well as hotel arrangements. The [facility] does not have access to check in [facility], and we encourage you to contact your surgeon's office for any assistance planning aroun d a tentative arrival time. Empty stomach [...] ACID (VITAMIN C) 500 MG TABLET CALCIUM CRB&PEQ-B5-GYJ09-GENIS ORAL CYANOCOBALAMIN (VIT B-12) 1,000 MCG TABLET [...] ch as Uber/Lyft), or public transportation. An Uber/Lyft/grain combine driver does not count as the responsible [...] it is after office hours, call the [facility] spray painting machine operator at [phone] and ask them to page him or h er. documented in this encounter Plan of Treatment +--------+ + + + + | Date | Type | Specialty | Care Team | Description | +--------+ + + + + | 03/22/ | Office | Cardiology | Tiny, Randell, | | | 2019 | Visit | | MD [address] | | | | | | [place], [place] | | | | | | [address] | | | | | | [phone] | | | | | | | | +--------+ + + + + | 04/04/ | Telephone-S | Surgery | Orquidea Cristobal, | | | 2019 | cheduled | | AUTOMOBILE INSPECTOR [address] | | | | | | [place], [place] | | | | | | [address] | | | | | | [phone] | | | | | | | | +--------+ + + + + documented as of this encounter Visit Diagnoses Not on filedocumented in this encounter
--- OUTSIDE RECORDS SUMMARY | ~2020-02-27 | XMS | Encounter Summary ---
Demographics + + + | Address | [address] | | | [place] [address] | + + + | Home Phone [...] + | Katalina Padilla | ECON | [address] | | | | | [place], [place] | | | | | [address] | | + + + + + | Ellie Vang | ECON | Unknown | | + + + + + Care Team Providers + +------+ + | Care Warehouse Director Name | Role | Phone | [...] 03/10/ | Office | Digestive Health | oRnna Clarke, | History of [place]-en-[place] | | 2018 | Visit | Center at [facility] [address] | ACNP [address] | gastric bypass | | | | [address] | Ave [place], [place] | (Primary Dx); | | | | for Health and | [address] | Ventral hernia | | | | Healing, Building 2 | [phone] | without obstruction | | | | [facility] [place] | | or gangrene; Mixed | | | | [address] | | hyperlipidemia; | | | | [phone] | | Diabetes mellitus | | | [...] is doing Refill oxycodone Rx +Take acid corn grinder for first 3 mos, then wean off [...] to POC and [facility] any issues. documented in this encounter [...] times daily. , Disp: , Rfl: CALCIUM CRB&SOF-Y2-OGX26-GENIS ORAL, Take 2 tablets by mouth two [...] Dr. Andie Brian Incisional hernia repair 03/01/2015 [facility]/ Dr. Cantu. Primary fascial closure and [...] History Narrative Updated 11/09/15 She lives in [place] with her mother and her sister (also her caregiver) lives in an apa rtment/duplex below. She has 2 grandchildren (age 4 and 7) who live with her daughter and son-in-law Her boyfriend lives in [place] HFpEF, DM2, HTN, Sleep Apnea (unable to tolerate CPAP), Hypothyroidism, Severe Obesity ([facility] weight [facility] lbs) Last [...] program here and refer her to our cash applications specialist who also has expertise in physical [...] Increase torsemide to pre-surgical dose +Take acid corn grinder for first 3 mos, then wean off [...] she will make an appointment with her Education Managers to discuss insulin dosing and CBGs 10. [...] to POC and will call or send [facility] ak ssage if any issues. Start time 15:35, end time 15:55. I spent a total of 20 minutes face to face with this pat ient. Over 50% of visit was in counseling. ~ 10 minutes of additional time spent reviewing chart prior to visit and documenting after this visit. Ronna Clarke DNP ACNP SQL ANALYST Bariatric Surgery Nurse Practitioner [facility] | [address] | [place], [place] | [address] | documented in this e ncounter Plan of Treatment +--------+ + + + + | Date | Type | Specialty | Care Team | Description | +--------+ + + + + | 03/22/ | Office | Cardiology | Randell Franks, | | | 2019 | Visit | | MD [address] | | | | | | [place], [place] | | | | | | [address] | | | | | | [phone] | | | | | | | | +--------+ + + + + | 04/04/ | Telephone-S | Surgery | Orquidea Cristobal, | | | 2019 | cheduled | | SQL ANALYST [address] | | | | | | [facility] [place] | | | | | | [address] | | | | | | [phone] | | | | | | | [...] + | [facility] - | [address] | [place] [address] | | | [place] | | | | + + + [...]
--- OUTSIDE RECORDS SUMMARY | ~2020-02-27 | XMS | Encounter Summary ---
Demographics + + + | Address | [address] | | | [place] [address] | + + + | Home Phone [...] [place], [place] | | | | | [address] | | + + + + + | Ellie Vang | ECON | Unknown | | + + + + + Care Team Providers + +------+ + | Care Wash Oil Pump Operator Name | Role | Phone | + +------+ + | Kenyatta Cardenas MD | PCP | | + +------+ + Encounter Details +--------+ + + + + | Date | Type | Department | Care Team | Description | +--------+ + + + + | 06/06/ | Telephone | Digestive Health | Chilo | | | 2019 | | [place] [address] [address] | MD [address] | | | | | [address] [facility] | [address] | | | | | for Health and | [place], [place] | | | | | [facility] 2 | [address] | | | | | [place], [place] | [phone] | | | | | [address] | | | | | | [phone] | | | +--------+ + + + [...] Ave | | | | | | [place], [place] | | | | | | [address] | | | | | | [phone] | | | | | | | | +--------+ + + + + | 04/04/ | Telephone-S | Surgery | Orquidea Cristobal, | | | 2019 | cheduled | | SLUBBER OPERATOR [address] | | | | | | [place], [place] | | | | | | [address] | | | | | | [phone] | | | | | | | | +--------+ + + + + documented as of this encounter Visit Diagnoses Not on filedocumented in this encounter"
--- OUTSIDE RECORDS SUMMARY | ~2020-02-27 | XMS | Encounter Summary ---
Demographics + + + | Address | [address] | | | [place] [address] | + + + | Home Phone [...] [place], [place] | | | | | [address] | | + + + + + | Ellei Vang | ECON | Unknown | | + + + + + Care Team Providers + +------+ + | Care Drafter Mechanical Name | Role | Phone | + [...] | | | | | | [place], [place] | | | | | | [address] | | | | | | [phone] | | | +--------+ + + + [...] Ave | | | | | | [place], [place] | | | | | | [address] | | | | | | [phone] | | | | | | | | +--------+ + + + + | 04/04/ | Telephone-S | Surgery | Oqruidea Cristobal, | | | 2019 | sherrill | | CRACKING UNIT OPERATOR [address] | | | | | | [place], [place] | | | | | | [address] | | | | | | [phone] | | | | | | | | +--------+ + + + + documented as of this encounter Visit Diagnoses Not on filedocumented in this encounter"
--- OUTSIDE RECORDS SUMMARY | ~2020-02-27 | XMS | Encounter Summary ---
Demographics + + + | Address | [address] | | | [place] [address] | + + + | Home Phone [...] + | Katalina Padilla | ECON | [address] | | | | | [place], [place] | | | | | [address] | | + + + + + | Ellie Vang | ECON | Unknown | | + + + + + Care Team Providers + +------+ + | Care Asphalt Tamping Machine Operator Name | Role | Phone [...] Medical Records | | 2013 | | [place] [address] [address] | [address] [facility] | Review ([facility] | | | | S [facility] | [facility] | OUTSIDE RECORDS) | | | | for Health and | [place], [place] | | | | | [place] [address] | [address] | | | | | [place], [place] | [phone] | | | | | [address] | | | | | | [phone] | | | +--------+ + + + [...] [address] | | | | | | [place], [place] | | | | | | [address] | | | | | | [phone] | | | | | | | | +--------+ + + + + | 04/04/ | Telephone-S | Surgery | Orquidea Critsobal, | | | 2020 | sherrill | | FRAME GATE MORTISER OPERATOR [address] | | | | | | [place], [place] | | | | | | [address] | | | | | | [phone] | | | | | | | | +--------+ + + + + documented as of this encounter Visit Diagnoses Not on filedocumented in this encounter"
--- OUTSIDE RECORDS SUMMARY | ~2020-02-27 | XMS | Encounter Summary ---
Demographics + + + | Address | [address] | | | [place] [address] | + + + | Home Phone [...] [place], [place] | | | | | [address] | | + + + + + | Ellie Vang | ECON | Unknown | | + + + + + Care Team Providers + +------+ + | Care Culturist Name | Role | Phone | + [...] + + + + | 06/23/ | Anesthesia | 6A Intra Op 3181 | Suzanne Bernal, | | | 2018 | Event | PRINCE Kruse | Joann Person MD,PhD | | | | | [facility] | [address] | | | | | Hospital Admitting | [place], [place] | | | | | Desk Located on the | [address] | | | | | 9th floor | [phone] | | | | | [place], [place] | | | | | | [address] | Graham Honeycutt, | | | | | | BOAT HOP [address] | | | | | | [address] | | | | | | [place], [place] | | | | | | [address] | | | | | | [phone] | | | | | | | | +--------+ + + + + Anesthesia Record + + + + + | Procedure Name | Responsible | Anesthesia Start | Anesthesia Stop Time | | | Anesthesiologist | Time | | + + + + + | UPPER ENDOSCOPY (N/A | Joann Palacios | 06/23/18 1506 | 06/23/18 1551 [...] + +------+ | Meds | +------+ + +---------+ | Name | Total | + +---------+ | midazolam | 2 mg | + +---------+ | fentaNYL | 150 mcg | + +---------+ | lidocaine 2% | 40 mg | + +---------+ | propofol (DIPRIVAN) 200 mg | 200 mg | + +---------+ | succinylcholine | 120 mg | + +---------+ | ondansetron | 4 mg | + +---------+ | LR | 500 mL | + +---------+ + + | Name | + + [...] 03/01/18921; Dannie; Midline; | 03/01/18921 by | 08/18/19 [...] + + | Incisi | 03/01/18; 924; Waqas Guo; | 03/01/18924 by | 08/18/19 1534 by | | on | Lateral; adb- upper quadrant; | Ethel Brito RN | Orquidea Parks RN | | | 08/18/19; 1534 | | | +--------+ + + + | Incisi | 03/01/18; 1051; Dannie CARVAJAL ; | 03/01/18 105 by | 08/18/19 1534 by | | [...] by | | | procedure documentation); | Graham Honeycutt, | Graham Honeycutt, | | | Endotracheal Tube; 7; Oral; | BOAT HOP | BOAT HOP | | | Cuffed; 06/23/18; 1542 | [...] [address] | | | | | | [facility] [place] | | | | | | [address] | | | | | | [phone] | | | | | | | | +--------+ + + + + | 04/04/ | Telephone-S | Surgery | Orquidea Cristobal, | | | 2019 | sherrill | | COASTAL TUG MATE [address] | | | | | | [place], [place] | | | | | | [address] | | | | | | [phone] | | | | | | | | +--------+ + + + + documented as of this encounter Procedures + +--------+ + + + | Procedure Name | Priori | Date/Time | Associated Diagnosis | Comments | | | ty | | | | + +--------+ + + + | CRISTIN ETT | Routin | 06/23/2018 | | Results for this | | | e | 3:28 PM | | procedure are in the | | | | PST | | results section. | + +--------+ + + + documented in this encounter Results CRISTIN ETT (06/23/2018 3:28 PM PST) + + + | Narrative | Performed At | + + + | Graham Honeycutt CRNA 06/23/2018 3:30 PM Procedure Reason | | | for Intubation: For surgical procedure, Location Performed: [place] , | | | Patient was preoxygenated Mask Ventilation Grade 0 - Ventilation by | | | mask not attempted Intubation Intubation adjuncts: Ramp , | | | Laryngoscopic view: Grade I, Fiberoptics used: Glidescope , Number | | | of Attempts: 1, Positive for EtCO2: Yes, Breath sounds: Bilateral | | | and equal ETT ETT Size: 7 Depth at Lip: 21 Cm | | | Airway leak: No Narrative Attending physically present | | | Attending: JOANN SCHNEIDER used r/t suboptimal | | | positioning in hospital bed and dolores for RSI. Performed by POLINA | | | GRAHAM HONEYCUTT | | + + + documented in this encounter Visit Diagnoses Not on filedocumented in this encounter Administered Medications + +--------+ +--------+------+------+ | Medication Order | MAR | Action | Dose | Rate | Site | | | Action | Date | | | | + +--------+ +--------+------+------+ | fentaNYL (SUBLIMAZE) injection | Given | 06/23/20 | 50 mcg | | | | intravenous, INTRAPROCEDURE PRN, | | 18 3:48 | | | | | Starting Thu06/23/18 at 1520, | | PM PST | | | | | Until Thu06/23/18 at 1542 | | | | | | + +--------+ +--------+------+------+ +-------+ +---------+---+---+ | Given | 06/23/20 | 100 mcg | | | | | 18 3:16 | | | | | | PM PST | | | | +-------+ +---------+---+---+ +---+---+ | | | +---+---+ + + + +---+---+---+ | lactated Ringers IV | given by | 06/23/20 | | | | | INTRAPROCEDURE CONTINUOUS PRN, | | 18 3:34 | | | | | Starting Thu06/23/18 at 1420, | anesthes | PM PST | | | | | Until Thu06/23/18 at 1542 | iology | | | | | + + + +---+---+---+ +---------+ +---+---+---+ | New Bag | 06/23/20 | | | | | | 18 2:20 | | | | | | PM PST | | | | +---------+ +---+---+---+ +---+---+ | | | +---+---+ + +-------+ +-------+---+---+ | lidocaine PF (XYLOCAINE MPF) 20 | Given | 06/23/20 | 40 mg | | | | mg/mL (2 %) injection | | 18 3:18 | | | | | INTRAPROCEDURE PRN, Starting Wed | | PM PST | | | | | 06/23/18 at 1520, Until Wed | | | | | | | 06/23/18 at 1542 | | | | | | + +-------+ +-------+---+---+ +---+---+ | | | +---+---+ + +-------+ +------+---+---+ | midazolam (PF) (VERSED) | Given | 06/23/20 | 2 mg | | | | injection intravenous, | | 18 3:07 | | | | | INTRAPROCEDURE PRN, Starting Wed | | PM PST | | | | | 11/28/18 at 1507, Until Wed | | | | | | | 06/23/18 at 1542 | | | | | | + +-------+ +------+---+---+ +---+---+ | | | +---+---+ + +-------+ +------+---+---+ | ondansetron (ZOFRAN) injection | Given | 06/23/20 | 4 mg | | | | intravenous, INTRAPROCEDURE PRN, | | 18 3:31 | | | | | Starting 06/23/18 at 1531, | | PM PST | | | | | Until Thu06/23/18 at 1542 | | | | | | + +-------+ +------+---+---+ +---+---+ | | | +---+---+ + +---------+ +--------+---+---+ | propofol (DIPRIVAN) 200 mg | New Bag | 06/23/20 | 200 mg | | | | intravenous, INTRAPROCEDURE | | 18 3:18 | | | | | CONTINUOUS PRN, Starting Wed | | PM PST | | | | | 06/23/18 at 1520, Until Wed | | | | | | | 06/23/18 at 1542 | | | | | | + +---------+ +--------+---+---+ +---+---+ | | | +---+---+ + +-------+ +--------+---+---+ | succinylcholine (ANECTINE) | Given | 06/23/20 | 120 mg | | | | injection intravenous, | | 18 3:18 | | | | | INTRAPROCEDURE PRN, Starting Wed | | PM PST | | | | | 06/23/18 at 1520, Until Wed | | | | | | | 06/23/18 at 1542 | | | | | | + +-------+ +--------+---+---+ +---+---+ | | | +---+---+ documented in this encounter"
--- OUTSIDE RECORDS SUMMARY | ~2020-02-27 | XMS | Encounter Summary ---
Demographics + + + | Address | [address] | | | [place] [address] | + + + | Home Phone [...] + | Katalina Padilla | ECON | [address] | | | | | [place], [place] | | | | | [address] | | + + + + + | Ellie Vang | ECON | Unknown | | + + + + + Care Team Providers + +------+ + | Care Upper Shaper Name | Role | Phone | + +------+ + | Fadi Goodrich DO | PCP | | + +------+ + Encounter Details +--------+---------+ + + + | Date | Type | Department | Care Team | Description | +--------+---------+ + + + | 02/22/ | Office | Preoperative | Gay Hoff, | Preop examination | | 2018 | Visit | [facility] at | DNP,ANP [address] | (Primary Dx) | | | | [facility] | [address] | | | | | [address] | [place], [place] | | | | | [facility] | [address] | | | | | and Healing, | [phone] | | | | | Building [address] | | | | | | [facility] [place] | | | | | | [address] | | | | | | [phone] | | | +--------+---------+ + + + [...] or walk. Surgery check-in location: Admitting - [facility], ninth floor phaneuf hospital Surgery Check in Time: The Preoperative [...] it is after office hours, call the [facility] carbon blocks press operator at [phone] and ask them to page him or [...] d function per TTE ( 02/16/2017) from [facility]: Improved and stable. T2DM - controlled with [...] renal failure no electrolyte abnormalities no dialysis Urology/Field Reporter: Within Defined Limits except as noted below [...] mg by mouth two times daily. CALCIUM CRB&FAD-B7-TFI63-GENIS ORAL Take 2 tablets by mouth two [...] 98ms, QTC 460ms, TTE ( 02/16/2017) - [facility] 1. Overall left ventricular systolic function is normal with, an EF between 60 - 65 %. 2. The right ventricle is normal in size and function. 3. No significant valvular abnormalities are noted. 4. In comparison to the previous (technically difficult) echocardiographic study done 01/01, no signfiicant changes are noted. TTE (02/17/2016) - [facility] Conclusions 1. There is normal left ventricular [...] and resp iratory change. TTE (11/07/2015) - [facility] Final Impressions: 1. The interpretation of [...] d function per TTE ( 02/16/2017) form [facility]. Improved and stable. - Confirmed with [...] Advised to bring her own apparatus for [facility]. GERD - On omeprazole. Chronic [...] to this patient's care. Gay Hoff DNP,ANP [facility] 4TH FLOOR [address] [facility] [address] I spent time (45 minutes, [...] Ave | | | | | | [place], [place] | | | | | | [address] | | | | | | [phone] | | | | | | | | +--------+ + + + + | 04/04/ | Telephone-S | Surgery | Orquidea Cristobal, | | | 2019 | cheduled | | TELE GROUT SEWER LINE REPAIRER [address] | | | | | | [place], [place] | | | | | | [address] | | | | | | [phone] | | | | | | | [...] + +--------+ + + + | RI COLLECTION VENOUS | Routin | 02/22/2018 | [...] | + + + + + | [facility] | [address] | [place] [address] | | | SERVICES, CORE | CLARENCE [...] [facility] | [address] | [place] [address] | | | SERVICES, | [address] [...] [facility] | [address] | [place] [address] | | | SERVICES, | [address] [...] | | considered for monitoring termite control servicer glycemic control in patients with: | LABORATORY [...] [facility] | [address] | [place] [address] | | | SERVICES, SPECIAL | [address] [...] | + + + + + | [facility] | [address] | [place] [address] | | | SERVICES, CORE | CLARENCE [...] NKECHI TUTTLET | [address] | [place], [place] | | | CARDIOLOGY | [address] | [address] | | + + + + + documented in this encounter Visit Diagnoses + + | Diagnosis | + + | Preop examination - Primary Preoperative examination, unspecified | + + documented in this encounter
--- OUTSIDE RECORDS SUMMARY | ~2020-02-27 | XMS | Encounter Summary ---
Demographics + + + | Address | [address] | | | [place] [address] | + + + | Home Phone [...] + | Katalina Padilla | ECON | [address] | | | | | [place], [place] | | | | | [address] | | + + + + + | Ellie Vang | ECON | Unknown | | + + + + + Care Team Providers + +------+ + | Care Lead Ramp Agent Name | Role | Phone | [...] | 2019 | Visit | Preventive at [facility] | MD [address] | mellitus without | | | | [address] | [place], [place] | complication, with | | | | [place] [facility] | [address] | long-term current | | | | and Healing, | [phone] | use of insulin (HCC) | | | | Building [address] | | (Primary Dx); | | | | [place], [place] | | Morbid obesity with | | | | [address] | | BMI of 70 and over, | | | | [phone] | | adult (HCC) | +--------+---------+ + [...] [facility]) 02/02/2017 Chronic diastolic heart failure ([facility]) 02/02/2017 Immobility 02/02/2017 Severe muscle deconditioning 02/02/2017 [...] daily. BELBUCA 300 mcg buccal film CALCIUM CRB&MQN-V6-NLZ01-GENIS ORAL Take 2 tablets by mouth two [...] T2DM. She underwent gastric bypass surgery r ouly 9 months ago and, following a period of vomiting that resolved with dilation of an es ophageal stricture, she has lost approximately 100 pounds since then in addition to her weig ht loss associated with the phentermine dosage. During this time she is come off her diabet es medicines except for a small dose of metformin, and she reports her last hmkek-gm-zlfq A1 c was 5.5% on this dose. She was recently seen by the bariatric surgery team and because of her rapid weight loss yesenia was advised to stop the topiramate. [...] CREATININE PLASMA (LAB) 0.85 0.70 EGFR - GREENLANDIC >60 >60 EGFR NON -GREENLANDIC >60 >60 GLUCOSE, PLASMA (LAB) 123 (H) [...] is currently being managed well by her Fruit Bar Maker with diuretics and main tenance of her [...] management of her heart failure by her Fruit Bar Maker 3) discontinue metformin 4) check 24 urine [...] [address] | | | | | | [place], [place] | | | | | | [address] | | | | | | [phone] | | | | | | | | +--------+ + + + + | 04/04/ | Telephone-S | Surgery | Orquidea Cristobal, | | | 2019 | cheduled | | FIELD MARKETING ASSOCIATE [address] | | | | | | [place], [place] | | | | | | [address] | | | | | | [phone] | | | | | | | [...] + + | [facility] - | [address] | [place] | [phone] | | [place]IMA | | | | [...]
--- OUTSIDE RECORDS SUMMARY | ~2020-02-27 | XMS | Encounter Summary ---
Demographics + + + | Address | [address] | | | [place] [address] | + + + | Home Phone [...] [place], [place] | | | | | [address] | | + + + + + | Ellie Vang | ECON | Unknown | | + + + + + Care Team Providers + +------+ + | Care Extractor Filler Name | Role | Phone | [...] 2014 | | [address] | [address] | REPAIR | | | | [facility] | [address] | | | | | Hospital Admitting | [place], [place] | | | | | Des Located on the | [address] | | | | | 9th floor | [phone] | | | | | [place], [place] | | | | | | [address] | | | +--------+---------+ + + + [...] SUMMARY: The Department of Surgery Author: Gabo Langstno MD R-1 Admitting Physician: Dr. Carrillo 03/03/2015, 1:36 PM Admission Diagnosis: incisional hernia Admission Date: 2015 Discharge Date: 03 Mar 2015 Diagnoses Principal Final Diagnosis: 1. Incisional hernia Additional Diagnoses: Procedures 1. Primary incisional hernia repair and scar revision Brief Hospital Course Mrs. Romero is a 40 yo F with an incisional hernia at a surgery port site who was transferre d to [facility] for concern of an incarcerated hernia. On [...] mouth once daily. , Historical Med CALCIUM CRB&CEK-V5-BCR47-GENIS ORAL Take 1 tablet by mouth two [...] 10:40 AM Randell Franks Cardiology Preventive at [facility] [phone] Cardiology 04/09/2015 1:00 PM Egs Ppv Tra Trauma Emergency General Surgery at [facility] [phone] TRAUMA CENTE Outstanding labs/studies: None Discharging Physician: GABO LANGSTON MD Attending Physician: Dr. Cantu PCP: Fadi Goodrich DO Signed: GABO LANGSTON MD Pager #[phone] Surgical Physician Internist [facility] Associated attestation - Tye Carrillo DO - 03/12/2015 9:12 AM PDTAttending: I discussed this patient with the resident and agree with the assessment and plan as outlin ed in this note and participated in the planning of care. Tye Carrillo DO, SIDRA, FACS Division of Trauma, Critical Care & Acute Care Surgery [facility] [phone] documented in this encounter Medications at Time of Discharge + + + +---------+--------+ + | Medication | Sig | Dispensed | Refills | Start | End Date | | | | | | Date | | + + + +---------+--------+ + | CALCIUM | Take 2 tablets by | | 0 | | | | CRB&FSJ-B9-LEW53-GEN | mouth two times | | | [...] original. [facility] DEPARTMENT OF SURGERY EMERGENCY GENERAL SURGERY Division [...] obesity with known ventral hernias transferred to [facility] for surgical managem ent of ventral hernia, now s/p repair. Post surgical pain: -patient ready for d/c, discussed f/u. Patient lives far away and has other appointments at [facility]. Will attempt to coordinate appointments. Discharge Plan: D/c today GABO LANGSTON MD Pager #[phone] Surgical Physician Internist [facility] Salomón William Md - 03/02/2015 1:12 PM PDT [facility] DEPARTMENT OF SURGERY EMERGENCY GENERAL SURGERY Division of Trauma and Critical Care Attending Physician: Shahid Cantu MD Progress Note Note Date: 03/02/2015 Admission Date: 2015 DYLAN ROMERO, Hospital Day #2 40 F PMH morbid obesity (BMI 71 today), DM2, depression, GERD, h/o stroke at age 18, and kn own ventral hernias transferred to [facility] for surgical treatment of suspected incarcerated yuriy [...] obesity with known ventral hernias transferred to [facility] for surgical managem ent of ventral hernia, [...] will be robel ing her home to [place], [place]. CALVIN ROMERO MD PGY-1 Anesthesiology Pager: [phone] [facility] [place] [facility] [address] [facility] [address] Karthik Oneill MD - 03/02/2015 8:26 AM [id number] Calvin William Md - 03/01/2015 5:34 PM PDT Brief Post Operative Note: 40 F PMH morbid obesity (BMI 71 today), DM2, depression, GERD, h/o stroke at age 18, and kn own ventral hernias transferred to [facility] for surgical treatment of incarcerated ventral herni [...] control CALVIN ROMERO MD PGY-1 Anesthesiology Pager: [phone] signed by Calvin Romero Md at 03/01/2015 [...] Ave | | | | | | [place], [place] | | | | | | [address] | | | | | | [phone] | | | | | | | | +--------+ + + + + | 04/04/ | Telephone-S | Surgery | Orquidea Cristobal, | | | 2019 | cheduled | | MASH TUB COOKER [address] | | | | | | [place], [place] | | | | | | [address] | | | | | | [phone] | | | | | | | [...] | | Attending Surgeon: Shahid Cantu MD Outbound Sales Executive(s): Howie Angeles MD, R5 | | Karthik [...] 03/02/2015 08:25:39DT: 03/02/2015 09:15:57Job #: | | [id number] | | | |Dr. Chris Cantu was present and scrubbed for the entirety of the case. | | | | | | | |Karthik Gonzalez MD | | | |Pursuant to federal Medicare and Medicaid regulations I was present for the entire procedur e. | | | | | | | |Shahid Cantu MD | |Handcrew Foreman | |Trauma, Critical Care & Acute Care Surgery | | | | | | | |Shahid Cantu MD | |TBK/MODL | | | | | | /[id number] | + ---+ CAPILLARY BLOOD GLUCOSE (NO [...] MARQUAM | [address] | [place], [place] | | | JUSTINE DAWN OF CARE | [address] | [address] | | | TESTS | | | [...] KWAKU | [address] | [place], [place] | | | L[place]PEZ POINT OF CARE | [address] | [address] | | | TESTS | | | [...] AMES | [address] | [place], [place] | | | JUSTINE DAWN OF JAKY | [address] | [address] | | | TESTS | | | [...] MARQUAM | [address] | [place], [place] | | | JUSTINE DAWN OF CARE | [address] | [address] | | | TESTS | | | [...] KWAKU | [address] | [place], [place] | | | L[place] POINT OF CARE | [address] | [address] | | | TESTS | | | [...] AMES | [address] | [place], [place] | | | JUSTINE DAWN OF JAKY | [address] | [address] | | | TESTS | | | [...] [facility] | [address] | [place] [address] | | | SERVICES, CORE | [address] [...] the MDRD equation recommended by the | MESU | | National Kidney Disease Education Program. [...] + + + + + | [facility] | [address] | [place] [address] | | | CLAIRE, LYDIA | CLARENCE [...] (H) | 60 - 99 mg/dL | [facility] - | | | GLUCOSE, | | [...] MARQUAM | [address] | [place], [place] | | | JUSTINE DAWN OF JAKY | [facility] | [address] | | | TESTS | | | [...] AMES | [address] | [place], [place] | | | L[place] POINT OF CARE | [address] | [address] | | | TESTS | | | [...] KWAKU | [address] | [place], [place] | | | JUSTINE DAWN OF [facility] | [facility] | [address] | | | TESTS | | | [...] (H) | 60 - 99 mg/dL | [facility] - | | | GLUCOSE, | | [...] MARQUAM | [address] | [place], [place] | | | JUSTINE DAWN OF JAKY | [facility] | [address] | | | TESTS | | | [...] AMES | [address] | [place], [place] | | | JUSTINE DAWN OF JAKY | [address] | [address] | | | TESTS | | | [...] + + + + + | [facility] | [address] [facility] | [place] [address] | | | SERVICES, CORE | [address] [...] + + + | N[facility]I AMES | [address] | [place], [place] | | | JUSTINE DAWN OF JAKY | [facility] | [address] | | | TESTS | | | [...]
--- OUTSIDE RECORDS SUMMARY | ~2020-02-27 | XMS | Encounter Summary ---
Demographics + + + | Address | [address] | | | [place] [address] | + + + | Home Phone [...] + | Katalina Padilla | ECON | [address] | | | | | [place], [place] | | | | | [address] | | + + + + + | Ellie Vang | ECON | Unknown | | + + + + + Care Team Providers + +------+ + | Care Layout Mechanic Name | Role | Phone | [...] | | | | | | [address] [place], [place] | | | | | | [address] | | | | | | [phone] | | | +--------+ + + + [...] Ave | | | | | | [place], [place] | | | | | | [address] | | | | | | [phone] | | | | | | | | +--------+ + + + + | 04/04/ | Telephone-S | Surgery | Orquidea Cristobal, | | | 2019 | sherrill | | LAP LAYER [address] | | | | | | [place], [place] | | | | | | [address] | | | | | | [phone] | | | | | | | | +--------+ + + + + documented as of this encounter Visit Diagnoses Not on filedocumented in this encounter"
--- OUTSIDE RECORDS SUMMARY | ~2020-02-27 | XMS | Encounter Summary ---
Demographics + + + | Address | [address] | | | [place] [address] | + + + | Home Phone [...] [place], [place] | | | | | [address] | | + + + + + | Ellie Vang | ECON | Unknown | | + + + + + Care Team Providers + +------+ + | Care Head Loader Name | Role | Phone | + [...] | Andie Hope MD | | | 2020 | Event | [address] | [address] | | | | | [facility] | [address] [facility] | | | | | Hospital Admitting | [place] [address] | | | | | Desk Located on the | [phone] | | | | | 9th floor | | | | | | [place], [place] | [place], | | | | | [address] | DOG LICENSE OFFICER SUPERVISOR | | +--------+ + + + + Anesthesia Record + + + + + | Procedure Name | Responsible | Anesthesia Start | Anesthesia Stop Time | | | Anesthesiologist | Time | | + + + + + | OPEN VENTRAL HERNIA | Andie Hope MD | 08/19/19 1417 | 08/19/19 4006 | | REPAIR (N/A ) | | [...] | | | on | | Angelica Sury, RN | | +--------+ + + + [...] | 08/20/19 0955 by | | jordon Kilgore; 16 Fr.; 10 mL; 08/20/19; | Angelica [...] | | | , POLINA; Endotracheal | DOG LICENSE OFFICER SUPERVISOR | DOG LICENSE OFFICER SUPERVISOR | | | Tube; 7.5; Oral; Cuffed; [...] Ave | | | | | | [place], [place] | | | | | | [address] | | | | | | [phone] | | | | | | | | +--------+ + + + + | 04/04/ | Telephone-S | Surgery | Orquidea Cristobal, | | | 2019 | cheduled | | SOFTWARE INSTALLATION ENGINEER [address] | | | | | | [place], [place] | | | | | | [address] | | | | | | [phone] | | | | | | | [...] | INTRAPROCEDURE PRN, Starting Thu | | 20 2:44 | | | [...] | | | | | | Starting Thu08/19/19 at 1440, | | | | | | | Until Thu08/19/19 at 1735 | | | | | [...] 4:06 | | | | | Starting Thu08/19/19 at 1606, | | PM PST | | | | | Until Thu08/19/19 at 1735 | | | | | [...] PST | | | | | Until Thu08/19/19 at 1735 | iology | | | [...]
--- OUTSIDE RECORDS SUMMARY | ~2020-02-27 | XMS | Encounter Summary ---
Demographics + + + | Address | [address] | | | [place] [address] | + + + | Home Phone [...] [place], [place] | | | | | [address] | | + + + + + | Ellie Vang | ECON | Unknown | | + + + + + Care Team Providers + +------+ + | Care Upholstery Technician Name | Role | Phone | + +------+ + PCP | Unavailable | + +------+ + Encounter Details +--------+ + + + + | Date | Type | Department | Care Team | Description | +--------+ + + + + | 05/13/ | Results | | Other, Faculty | | | 1992 | Only | | [phone] | | +--------+ + + + + [...] Ave | | | | | | [place], [place] | | | | | | [address] | | | | | | [phone] | | | | | | | | +--------+ + + + + | 04/04/ | Telephone-S | Surgery | Orquidea Cristobal, | | | 2019 | cheduled | | DEBONING TEAM LEADER [address] | | | | | | [place], [place] | | | | | | [address] | | | | | | [phone] | | | | | | | [...] | | + +---------+ + + | [facility] DEPARTMENT OF | | | | [...] | | | | | | | [id number] SCAN OF | | | | | [...] | | + +---------+ + + | [facility] DEPARTMENT OF | | | | | RADIOLOGY | | | | + +---------+ + + documented in this encounter Visit Diagnoses Not on filedocumented in this encounter"
--- OUTSIDE RECORDS SUMMARY | ~2020-02-27 | XMS | Encounter Summary ---
Demographics + + + | Address | [address] | | | [place] [address] | + + + | Home Phone [...] [place], [place] | | | | | [address] | | + + + + + | Ellie Vang | ECON | Unknown | | + + + + + Care Team Providers + +------+ + | Care Cash Posting Representative Name | Role | Phone | + +------+ + | Fadi Goodrich DO | PCP | | + +------+ + Encounter Details +--------+ + + + + | Date | Type | Department | Care Team | Description | +--------+ + + + + | 11/04/ | Telephone | [facility] at [facility] | Leslie Mistry, | | | 2017 | | [address] | PhD [address] [facility] | | | | | [facility] | [facility] | | | | | and Healing, | [place], [place] | | | | | [facility] | [address] | | | | | Floor [place], [place] | [phone] | | | | | [address] | | | | | | [phone] | | | +--------+ + + + [...] Ave | | | | | | [place], [place] | | | | | | [address] | | | | | | [phone] | | | | | | | | +--------+ + + + + | 04/04/ | Telephone-S | Surgery | Orquidea Cristobal, | | | 2019 | cheduled | | MORTUARY OPERATIONS MANAGER [address] | | | | | | [place], [place] | | | | | | [address] | | | | | | [phone] | | | | | | | | +--------+ + + + + documented as of this encounter Visit Diagnoses Not on filedocumented in this encounter"
--- OUTSIDE RECORDS SUMMARY | ~2020-02-27 | XMS | Encounter Summary ---
Demographics + + + | Address | [address] | | | [place] [address] | + + + | Home Phone [...] + | Katalina Padilla | ECON | [address] | | | | | [place], [place] | | | | | [address] | | + + + + + | Ellie Vang | ECON | Unknown | | + + + + + Care Team Providers + +------+ + | Care Core Analyst Name | Role | Phone | [...] 2015 | | Preventive at [facility] | MD [address] | | | | | [address] | [place], [place] | | | | | [facility] | [address] | | | | | and [place], | [phone] | | | | | [address] | | | | | | [facility] [place] | | | | | | [address] | | | | | | [phone] | | | +--------+ + + + [...] Ave | | | | | | [place], [place] | | | | | | [address] | | | | | | [phone] | | | | | | | | +--------+ + + + + | 04/04/ | Telephone-S | Surgery | Orquidea Cristobal, | | | 2019 | cheduled | | SHEET MANUFACTURING SUPERVISOR [address] | | | | | | [place], [place] | | | | | | [address] | | | | | | [phone] | | | | | | | | +--------+ + + + + documented as of this encounter Visit Diagnoses Not on filedocumented in this encounter"
--- OUTSIDE RECORDS SUMMARY | ~2020-02-27 | XMS | Encounter Summary ---
Demographics + + + | Address | [address] | | | [place] [address] | + + + | Home Phone [...] + | Katalina Padilla | ECON | [address] | | | | | [place], [place] | | | | | [address] | | + + + + + | Ellie Vang | ECON | Unknown | | + + + + + Care Team Providers + +------+ + | Care Postal Service Sectional Center Manager Name | Role | Phone | + +------+ + | Kenyatta Cardenas MD | PCP | | + +------+ + Encounter Details +--------+ + + + + | Date | Type | Department | Care Team | Description | +--------+ + + + + | 03/10/ | Pharmacy | [facility] | | | | 2018 | Visit | & [facility] | | | | | | [address] | | | | | | Mailcode: Center | | | | | | [facility] and | | | | | | [facility] | | | | | | [place], [place] | | | | | | [address] | | | | | | [phone] | | | +--------+ + + + [...] | | 2020 | Visit | | [address] | | | | | | [place], [place] | | | | | | [address] | | | | | | [phone] | | | | | | | | +--------+ + + + + | 04/04/ | Telephone-S | Surgery | Orquidea Cristobal, | | | 2019 | cheduled | | AUTOMOTIVE PARTS ADVISOR [address] | | | | | | [place], [place] | | | | | | [address] | | | | | | [phone] | | | | | | | | +--------+ + + + + documented as of this encounter Visit Diagnoses Not on filedocumented in this encounter"
--- OUTSIDE RECORDS SUMMARY | ~2020-02-27 | XMS | Encounter Summary ---
Demographics + + + | Address | [address] | | | [place] [address] | + + + | Home Phone [...] + | Katalina Padilla | ECON | [address] | | | | | [place], [place] | | | | | [address] | | + + + + + | Ellie Vang | ECON | Unknown | | + + + + + Care Team Providers + +------+ + | Care Order Desk Clerk Name | Role | Phone [...] | | | | | (HCC) | [place], [place] | Hospital, | | | | | Procedures | [address] | 10th Floor | | | | | CT ABDOMEN & | Phone: | [place], [place] | | | | | PELVIS WWO | | [address] | | | | | IV CONTRAST | Fax: | Phone: | | | | | [place] [address] | [phone] | [phone] | | | | | ABDOMEN&PELV | | Fax: | | | | | IS | | [phone] | | | | | W/CONTRAST | [...] | | | | | | | [facility] | | | | | | | Health and | | | | | | | Healing, | | | | | | | Building [address] | | | | | | | [place], [place] | | | | | | | [address] | | | | | | | Phone: | | | | | | | [phone] | | | | | | | Fax: | | | | | | | [phone] | +--------+--------+ + + + + Encounter Details +--------+---------+ + + + | Date | Type | Department | Care Team | Description | +--------+---------+ + + + | 10/02/ | Office | Digestive Health | Shereen Georges, | Abdominal pain | | 2015 | Visit | Center at [facility] [address] | ACNP [address] | (Primary Dx); Morbid | | | | [address] | Ave [place], [place] | obesity (HCC) | | | | for Health and | [address] | | | | | [facility], [facility] 2 | [phone] | | | | | [place], [place] | | | | | | [address] | | | | | | [phone] | | | +--------+---------+ + + + [...] up in th e air, Use a vice chair.... And get it really dry. Then use corn starch ..... Then use medicated powder... Please go to the 3rd floor for the study... [place] [address] documented in this encounter Progress Notes Shereen Pinto ACNP - 10/02/2014 11:14 AM PDTFormatting of this note might be different fro m the original. BARIATRIC INITIAL VISIT Provider: Shereen Blair DNP, ACNP, MINE GEOLOGIST Referring Provider: Dr. Goodrich Reason for Requested [...] with the surgeon. Shereen Pinto DNP, ACNP, MINE GEOLOGIST Nurse Practitioner for Bariatric Surgery [facility] | [address] | [place] | [address] | Potential Contraindications to Bariatric Surgery Age [...] other providers does not guarantee that the [facility] Bariatric Surger y program will deem [...] [address] | | | | | | [place], [place] | | | | | | [address] | | | | | | [phone] | | | | | | | | +--------+ + + + + | 04/04/ | Telephone-S | Surgery | Orquidea Cristobal, | | | 2019 | sherrill | | MINE GEOLOGIST [address] | | | | | | [facility] [place] | | | | | | [address] | | | | | | [phone] | | | | | | | [...] | | | | | Preliminary / MARIANGLE | | | | | | KENDAL [...]
--- OUTSIDE RECORDS SUMMARY | ~2020-02-27 | XMS | Encounter Summary ---
Demographics + + + | Address | [address] | | | [place] [address] | + + + | Home Phone [...] [place], [place] | | | | | [address] | | + + + + + | Ellie Vang | ECON | Unknown | | + + + + + Care Team Providers + +------+ + | Care Sweatband Separator Name | Role | Phone | + [...] Records | | 2019 | | Center [place] [address] | MD [address] | Review | | | | [facility] | [facility] | | | | | [facility] and | [place], [place] | | | | | [place] [address] | [address] | | | | | [place], [place] | [phone] | | | | | [address] | | | | | | [phone] | | | +--------+ + + + [...] Ave | | | | | | [place], [place] | | | | | | [address] | | | | | | [phone] | | | | | | | | +--------+ + + + + | 04/04/ | Telephone-S | Surgery | Orquidea Cristobal, | | | 2019 | cheduled | | INSOLE STIFFENER [address] | | | | | | [place], [place] | | | | | | [address] | | | | | | [phone] | | | | | | | | +--------+ + + + + documented as of this encounter Visit Diagnoses Not on filedocumented in this encounter"
--- OUTSIDE RECORDS SUMMARY | ~2020-02-27 | XMS | Encounter Summary ---
Demographics + + + | Address | [address] | | | [place] [address] | + + + | Home Phone [...] + | Katalina Padilla | ECON | [address] | | | | | [place], [place] | | | | | [address] | | + + + + + | Ellie Vang | ECON | Unknown | | + + + + + Care Team Providers + +------+ + | Care Company Pilot Name | Role | Phone | [...] (PHENTERMINE 37.5 mg | | | | [facility] [place] [facility] | [place], [place] | ); Refill Request | | | | [address] | [address] | | | | | [facility] | [phone] | | | | | [facility] | | | | | | [place], [place] | | | | | | [address] | | | | | | [phone] | | | +--------+ + + + [...] Ave | | | | | | [place], [place] | | | | | | [address] | | | | | | [phone] | | | | | | | | +--------+ + + + + | 04/04/ | Telephone-S | Surgery | Orquidea Cristobal, | | | 2019 | cheduled | | WASHER MACHINE [address] | | | | | | [facility] [place] | | | | | | [address] | | | | | | [phone] | | | | | | | | +--------+ + + + + documented as of this encounter Visit Diagnoses Not on filedocumented in this encounter"
--- OUTSIDE RECORDS SUMMARY | ~2020-02-27 | XMS | Encounter Summary ---
Demographics + + + | Address | [address] | | | [place] [address] | + + + | Home Phone [...] [place], [place] | | | | | [address] | | + + + + + | Ellie Vang | ECON | Unknown | | + + + + + Care Team Providers + +------+ + | Care Materials Specialist Name | Role | Phone | [...] | | 2019 | | Preventive at [facility] | MD [address] | re-test? ) | | | | [address] | [place], [place] | | | | | [facility] | [address] | | | | | and [place], | [phone] | | | | | [place] [address] | | | | | | [facility] [place] | | | | | | [address] | | | | | | [phone] | | | +--------+ + + + [...] Ave | | | | | | [place], [place] | | | | | | [address] | | | | | | [phone] | | | | | | | | +--------+ + + + + | 04/04/ | Telephone-S | Surgery | Orquidea Cristobal, | | | 2019 | cheduled | | COMB WINDER [address] | | | | | | [facility] [place] | | | | | | [address] | | | | | | [phone] | | | | | | | [...]
--- OUTSIDE RECORDS SUMMARY | ~2020-02-27 | XMS | Encounter Summary ---
Demographics + + + | Address | [address] | | | [place] [address] | + + + | Home Phone [...] + | Katalina Padilla | ECON | [address] | | | | | [place], [place] | | | | | [address] | | + + + + + | Ellie Vang | ECON | Unknown | | + + + + + Care Team Providers + +------+ + | Care Control Valve Technician Name | Role | Phone | [...] | 2017 | | Preventive at [facility] | MD [address] | | | | | [address] | [place], [place] | | | | | [facility] | [address] | | | | | and [place], | [phone] | | | | | [address] | | | | | | [place], [place] | | | | | | [address] | | | | | | [phone] | | | +--------+ + + + [...] [address] | | | | | | [place], [place] | | | | | | [address] | | | | | | [phone] | | | | | | | | +--------+ + + + + | 04/04/ | Telephone-S | Surgery | Orquidea Cristobal, | | | 2020 | cheduled | | DITCHING MACHINE OPERATING ENGINEER [address] | | | | | | [place] | | | | | | [address] | | | | | | [phone] | | | | | | | | +--------+ + + + + documented as of this encounter Visit Diagnoses Not on filedocumented in this encounter"
--- OUTSIDE RECORDS SUMMARY | ~2020-02-27 | XMS | Encounter Summary ---
Demographics + + + | Address | [address] | | | [place] [address] | + + + | Home Phone [...] + | Katalina Padilla | ECON | [address] | | | | | [place], [place] | | | | | [address] | | + + + + + | Ellie Vang | ECON | Unknown | | + + + + + Care Team Providers + +------+ + | Care Window Shade Cutter And Mounter Name | Role | Phone | + [...] | | 2019 | | Preventive at [facility] | MD [address] | stop any | | | | [address] | [place], [place] | medications? ) | | | | [facility] | [address] | | | | | and [place], | [phone] | | | | | [place] [address] | | | | | | [place], [place] | | | | | | [address] | | | | | | [phone] | | | +--------+ + + + [...] [address] | | | | | | [place], [place] | | | | | | [address] | | | | | | [phone] | | | | | | | | +--------+ + + + + | 04/04/ | Telephone-S | Surgery | Orquidea Cristobal, | | | 2019 | cheduled | | APPLICATION COORDINATOR [address] | | | | | | [place], [place] | | | | | | [address] | | | | | | [phone] | | | | | | | | +--------+ + + + + documented as of this encounter Visit Diagnoses Not on filedocumented in this encounter"
--- OUTSIDE RECORDS SUMMARY | ~2020-02-27 | XMS | Encounter Summary ---
Demographics + + + | Address | [address] | | | [place] [address] | + + + | Home Phone [...] [place], [place] | | | | | [address] | | + + + + + | Ellie Vang | ECON | Unknown | | + + + + + Care Team Providers + +------+ + | Care Sample Sawyer Name | Role | Phone | + +------+ + | Fadi Goodrich DO | PCP | | + +------+ + Encounter Details +--------+ + + + + | Date | Type | Department | Care Team | Description | +--------+ + + + + | 12/12/ | Emergency | [facility] Emergency | | | | 2014 - | | Department [address] | | | | | [address] | | | | 05/20/ | | [facility] | | | | 2014 | | [place], [place] | | | | | | [address] | | | | | | [phone] | | | +--------+ + + + [...] Visit | | MD [address] | | | | | | [place], [place] | | | | | | [address] | | | | | | [phone] | | | | | | | | +--------+ + + + + | 04/04/ | Telephone-S | Surgery | Orquidea Cristobal, | | | 2019 | sherrill | | PHOTOGRAMMETRIC COMPILATION SPECIALIST [address] | | | | | | [place], [place] | | | | | | [address] | | | | | | [phone] | | | | | | | | +--------+ + + + + documented as of this encounter Visit Diagnoses Not on filedocumented in this encounter"
--- OUTSIDE RECORDS SUMMARY | ~2020-02-27 | XMS | Encounter Summary ---
Demographics + + + | Address | [address] | | | [place] [address] | + + + | Home Phone [...] [place], [place] | | | | | [address] | | + + + + + | Ellie Vang | ECON | Unknown | | + + + + + Care Team Providers + +------+ + | Care Hospital Unit Clerk Name | Role | Phone | [...] floor | | | | | | [place], [place] | | | | | | [address] | | | +--------+ + + + [...] | | 2020 | Visit | | [address] | | | | | | [place], [place] | | | | | | [address] | | | | | | [phone] | | | | | | | | +--------+ + + + + | 04/04/ | Telephone-S | Surgery | Orquidea Cristobal, | | | 2020 | sherrill | | SOLAR CONSULTANT [address] | | | | | | [place] | | | | | | [address] | | | | | | [phone] | | | | | | | | +--------+ + + + + documented as of this encounter Visit Diagnoses Not on filedocumented in this encounter"
--- OUTSIDE RECORDS SUMMARY | ~2020-02-27 | XMS | Encounter Summary ---
Demographics + + + | Address | [address] | | | [place] [address] | + + + | Home Phone [...] [place], [place] | | | | | [address] | | + + + + + | Ellie Vang | ECON | Unknown | | + + + + + Care Team Providers + +------+ + | Care Machine Boss Name | Role | Phone | + [...] | | | | | Procedures | [place], [place] | | | | | | TRANSTHORACI | [address] | | | | | | C | Phone: | | | | | | ECHOCARDIOGR | [phone] | | | | | | AM, ADULT | Fax: | | | | | | | [phone] | | +--------+--------+ + + + + [...] | 2016 | Visit | Preventive at [facility] | MD [address] | exertion) (Primary | | | | [address] | [place], [place] | Dx) | | | | [facility] | [address] | | | | | and Healing, | [phone] | | | | | [address] | | | | | | [place], [place] | | | | | | [address] | | | | | | [phone] | | | +--------+---------+ + + + [...] 500 mg by mouth once daily. CALCIUM CRB&AVO-M5-UZI28-GENIS ORAL Take 1 tablet by mouth two [...] himself to the local hospit al in [place] and so this has been delayed. ROS: [...] to lose the additional weight requested by [facility] bariatric surgery group. This current [...] Ave | | | | | | [place], [place] | | | | | | [address] | | | | | | [phone] | | | | | | | | +--------+ + + + + | 04/04/ | Telephone-S | Surgery | Orquidea Cristobal, | | | 2019 | cheduled | | FILLING OPERATOR [address] | | | | | | [place], [place] | | | | | | [address] | | | | | | [phone] | | | | | | | [...]
--- OUTSIDE RECORDS SUMMARY | ~2020-02-27 | XMS | Encounter Summary ---
Demographics + + + | Address | [address] | | | [place] [address] | + + + | Home Phone [...] + | Katalina Padilla | ECON | [address] | | | | | [place], [place] | | | | | [address] | | + + + + + | Ellie Vang | ECON | Unknown | | + + + + + Care Team Providers + +------+ + | Care Violent Crimes Detective Name | Role | Phone | [...] | | 2 diabetes | JEAN, | [place], [place] | | | | | mellitus | [place] [address] | [address] | | | | | without | Phone: | Phone: | | | | | complication | [phone] | [phone] | | | | | (HCC) | Fax: | Fax: | | | | | Procedures | [phone] | [phone] | | | | | MD EST | | | | | | [...] | 2018 | Visit | Preventive at [facility] | MD [address] | mellitus without | | | | [address] | [place], [place] | complication, with | | | | [facility] | [address] | long-term current | | | | and Healing, | [phone] | use of insulin (HCC) | | | | [address] | | (Primary Dx); | | | | [place], [place] | | Morbid obesity with | | | | [address] | | BMI of 70 and over, | | | | [phone] | | adult (HCC) | +--------+---------+ + [...] Note: Cannot tolerate CPAP Severe Morbid obesity ([facility]), BMI 88 11/12/2012 Priority: 4 Overview Note: Lifetime max: 495 lbs Phentermine started Type 2 diabetes mellitus ([facility]) 04/14/2013 Priority: 5 Iron deficiency anemia due to chronic blood loss 11/11/2015 Priority: 6 Overview Note: Ferritin 18 on 10/2015 Hypoalbuminemia (no proteinuria, need to rule out synthetic, nutrition, loss) 6 Priority: 6 Hypothyroidism 08/28/2014 Priority: 8 Morbid obesity with BMI of 70 and over, adult ([facility]) 02/02/2017 Chronic diastolic heart failure ([facility]) 02/02/2017 Immobility 02/02/2017 Severe muscle [...] 1 tablet by mouth once daily CALCIUM CRB&JWY-T1-JZK77-GENIS ORAL Take 2 tablets by mouth two [...] jeart failure is manag ed by her steam brush operator and she was seen by the bariatric surgery group and is now back on [facility] for gastric bypass in the upcoming [...] is currently being managed well by her Wind Energy Mechanic with diuretics and main tenance of [...] management of her heart failure by her Wind Energy Mechanic 3) Check A1c, lipids 4) Await bariatric [...] | | 2019 | Visit | | [address] | | | | | | [place], [place] | | | | | | [address] | | | | | | [phone] | | | | | | | | +--------+ + + + + | 04/04/ | Telephone-S | Surgery | Orquidea Cristobal, | | | 2020 | sherrill | | ENTERPRISE INTEGRATION DEVELOPER [address] | | | | | | [place], [place] | | | | | | [address] | | | | | | [phone] | | | | | | | [...] | + + + + + | [facility] | [address] | [place], [place] | | | SERVICES, LIPID | [address] | [address] | | + + + + + [...] | [facility] | | considered for monitoring senior care glycemic control in patients with: | LABORATORY [...] [facility] | [address] | [place] [address] | | | SERVICES, SPECIAL | CL[address]ENCE [address] | | | | IMM + COAG | | | | + + + + + documented in this encounter Visit Diagnoses + + | Diagnosis | + + | Type 2 diabetes mellitus without complication, with long-term current use of insulin | | ([facility]) - Primary | + + | Morbid obesity with BMI of 70 and over, adult ([facility]) | + + documented in this encounter
--- OUTSIDE RECORDS SUMMARY | ~2020-02-27 | XMS | Encounter Summary ---
Demographics + + + | Address | [address] | | | [place] [address] | + + + | Home Phone [...] + | Katalina Padilla | ECON | [address] | | | | | [place], [place] | | | | | [address] | | + + + + + | Ellie Vang | ECON | Unknown | | + + + + + Care Team Providers + +------+ + | Care Proofsheet Corrector Name | Role | Phone | + [...] | | 2014 | | Center at [facility] [address] | [facility] [address] | Review (Pre-surgery | | | | [address] [facility] | Ave [place], [place] | meal plan. To be | | | | for Health and | [address] | provided to home | | | | [facility], [address] | [phone] | health nurse. ) | | | | [place], [place] | | | | | | [address] | | | | | | [phone] | | | +--------+ + + + [...] Ave | | | | | | [place], [place] | | | | | | [address] | | | | | | [phone] | | | | | | | | +--------+ + + + + | 04/04/ | Telephone-S | Surgery | Orquidea Cristobal, | | | 2019 | cheduled | | ASW SPECIALIST [address] | | | | | | [place], [place] | | | | | | [address] | | | | | | [phone] | | | | | | | | +--------+ + + + + documented as of this encounter Visit Diagnoses Not on filedocumented in this encounter"
--- OUTSIDE RECORDS SUMMARY | ~2020-02-27 | XMS | Encounter Summary ---
Demographics + + + | Address | [address] | | | [place] [address] | + + + | Home Phone [...] + | Katalina Padilla | ECON | [address] | | | | | [place], [place] | | | | | [address] | | + + + + + | Ellie Vang | ECON | Unknown | | + + + + + Care Team Providers + +------+ + | Care Hospital Corpsman Name | Role | Phone | + +------+ + | Fadi Goodrich DO | PCP | | + +------+ + Encounter Details +--------+ + + + + | Date | Type | Department | Care Team | Description | +--------+ + + + + | 02/15/ | Abstract | Digestive Health | Hernandez Brian, | | | 2012 | | [place] [address] [address] | [address] [facility] | | | | | [address] [facility] | [facility] | | | | | for [facility] and | [place], [place] | | | | | [facility] 2 | [address] | | | | | [place], [place] | [phone] | | | | | [address] | | | | | | [phone] | | | +--------+ + + + [...] Ave | | | | | | [place], [place] | | | | | | [address] | | | | | | [phone] | | | | | | | | +--------+ + + + + | 04/04/ | Telephone-S | Surgery | Orquidea Cristobal, | | | 2019 | sherrill | | PYRIDINE OPERATOR [address] | | | | | | [place], [place] | | | | | | [address] | | | | | | [phone] | | | | | | | | +--------+ + + + + documented as of this encounter Visit Diagnoses Not on filedocumented in this encounter"
--- OUTSIDE RECORDS SUMMARY | ~2020-02-27 | XMS | Encounter Summary ---
Demographics + + + | Address | [address] | | | [place] [address] | + + + | Home Phone | | + + + | Preferred Language | Unknown | + + + | Marital Status | | + + + | Restoration Affiliation | Unknown | + + + | Race | Unknown | + + + | Ethnic Group | Unknown | + + + Author + + + | Author | [facility] | | | and Jeffana | + + + | Organization | [facility] Hernandez [...] Team Providers + +------+ + | Care Honing Machine Operator Tool Name | Role | Phone | + +------+ + PCP | Unavailable | + +------+ + Encounter Details +--------+ + + + + | Date | Type | Department | Care Team | Description | +--------+ + + + + | 04/11/ | Hospital | C GENERIC OP | | ABSENCE OF | | 2001 | Encounter | CONVERSION DEP [address] | | [address]EN[address]ATION | | | | [address] | | | | | | [place], [place] | | | | | | [address] | | | | | | [phone] | | | +--------+ + + + [...] | | 2019 | Office | | [address] | | | | Visit | | [address] | | | | | | [place] [address] | | | | | | [phone] | | | | | | | | +--------+ + + + + | 03/29/ | Office | Cardiology | Sulema Altamirano | | | 2019 | Visit | | [address] | | | | | | [address] | | | | | | [facility] [place] [address] | | | | | | [phone] | | | | | | | | +--------+ + + + + documented as of this encounter Visit Diagnoses + + | Diagnosis | + + | Absence of menstruation | + + documented in this encounter"
--- OUTSIDE RECORDS SUMMARY | ~2020-02-27 | XMS | Encounter Summary ---
Demographics + + + | Address | [address] | | | [place] [address] | + + + | Home Phone [...] [place], [place] | | | | | [address] | | + + + + + | Ellie Vang | ECON | Unknown | | + + + + + Care Team Providers + +------+ + | Care Farm Mortgage Agent Name | Role | Phone | [...] Dx) | | | | Surgery at [facility] [address] | [place], [place] | | | | | [address] [place] | [address] | | | | | for Health and | [phone] | | | | | [facility], Building 1, | | | | | | 5th Floor | | | | | | [place], [place] | | | | | | [address] | | | | | | [phone] | | | +--------+---------+ + + + [...] Dr. Andie Brian Incisional hernia repair 03/01/2015 [facility]/ Dr. Cantu. Primary fascial closure and scar excision Lap gastric byp, and nilesh-en-y gastroenterostomy w/ nilesh limb 150 cm or less 8 [facility], Dr Pandey Cholecystectomy, laparoscopic Allergies [...] 50 mg by mouth once daily. CALCIUM CRB&TGR-[id number]-GENIS ORAL Take 2 tablets by mouth two [...] for further evaluation. I am Silver De aL Cruz functioning as a scribe for Archie [...] [address] | | | | | | [place], [place] | | | | | | [address] | | | | | | [phone] | | | | | | | | +--------+ + + + + | 04/04/ | Telephone-S | Surgery | Orquidea Cristobal, | | | 2019 | sherrill | | OPERATION SPECIALIST [address] | | | | | | [facility] [place] | | | | | | [address] | | | | | | [phone] | | | | | | | | +--------+ + + + + documented as of this encounter Visit Diagnoses + + | Diagnosis | + + | Excess skin of abdomen - Primary Unspecified hypertrophic and atrophic condition of | | skin | + + documented in this encounter
--- OUTSIDE RECORDS SUMMARY | ~2020-02-27 | XMS | Encounter Summary ---
Demographics + + + | Address | [address] | | | [place] [address] | + + + | Home Phone [...] [place], [place] | | | | | [address] | | + + + + + | Ellie Vang | ECON | Unknown | | + + + + + Care Team Providers + +------+ + | Care Firefighter Type One Name | Role | Phone | + [...] | | gastric | [address] | [place] | | | | | bypass | [place], [place] | Pavilion, 4th | | | | | Ventral | [address] | floor | | | | | hernia | Phone: | [place], [place] | | | | | without | [phone] | [address] | | | | | obstruction | Fax: | Phone: | | | | | or gangrene | [phone] | [phone] | | | | | Mixed | | Fax: | | | | | hyperlipidem | | [phone] | | | | | ia Diabetes [...] | | | | | | | MI UPPER GI | | | | | | | ENDOSCOPY,BI | | | | | | | OPSY MI | | | | | | | [...] | 2018 | Visit | Center at [facility] [address] | ACNP [address] | gastric bypass | | | | [address] | Ave [facility] [place] | (Primary Dx); | | | | for Health and | [address] | Ventral hernia | | | | Healing, Building 2 | [phone] | without obstruction | | | | [place], [place] | | or gangrene; Mixed | | | | [address] | | hyperlipidemia; | | | | [...] to POC and will call or send Stamplay message if any issues. documented in this [...] tongue once daily., Disp: , Rfl: CALCIUM CRB&TDV-[id number]-GENIS ORAL, Take 2 tablets by mouth two [...] index of 70 and over in adult ([facility]) Myalgia and myositis Nausea Neck pain Numbness Osteoarthritis of knee Palpitations Pneumonia Shortness of breath Staphylococcal infection Stroke ([facility]) TIA (transient ischemic attack) due [...] Andie Brian Incisional hernia repair 03/01/2015 [facility]/ Dr. Cantu. Primary fascial closure and scar excision Lap gastric byp, and nilesh-en-y gastroenterostomy w/ nilesh limb 150 cm or less [facility] Social History Social History Marital status: Single Spouse name: N/A Number of children: 1 Years of education: N/A Occupational History disabled None Social History Main Topics Smoking status: Former Smoker Smokeless tobacco: Never Used Alcohol use No Drug use: No Sexual activity: Not on file Social History Narrative Updated 11/09/15 She lives in [place] with her mother and her sister (also her caregiver) lives in an apa rtment/duplex below. She has 2 grandchildren (age 4 and 7) who live with her daughter and son-in-law Her boyfriend lives in [place] HFpEF, DM2, HTN, Sleep Apnea (unable to tolerate CPAP), Hypothyroidism, Severe Obesity (Jasmyn menjivar max weight 495 lbs) Last seen by [...] program here and refer her to our field applications specialist who also has expertise in [...] to POC and will call or send Mychart lars essage if any issues. Start time 15:20, end time 15:45. I spent a total of 25 minutes face to face with this pat ient. Over 50% of visit was in counseling. ~ 15 minutes of additional time spent reviewing chart prior to visit and documenting after this visit. Ronna Clarke DNP ACNP DOCUMENTATION BILLING CLERK Bariatric Surgery Nurse Practitioner [facility] | [address]. | [place], [place] | [address] | documented in this e ncounter Plan of Treatment +--------+ + + + + | Date | Type | Specialty | Care Team | Description | +--------+ + + + + | 03/22/ | Office | Cardiology | Randell Franks, | | | 2019 | Visit | | [address] | | | | | | [place], [place] | | | | | | [address] | | | | | | [phone] | | | | | | | | +--------+ + + + + | 04/04/ | Telephone-S | Surgery | Orquidea Cristobal, | | | 2019 | sherrill | | DOCUMENTATION BILLING CLERK [address] | | | | | | [place], [place] | | | | | | [address] | | | | | | [phone] | | | | | | | | +--------+ + + + + documented as of this encounter Results X-RAY MIRIAM CASTELLON (06/07/2018 9:47 AM PST) + + | Specimen | + + | | + + + + + | Narrative | Performed At | + + + | EXAM: Esophagram with barrel filler radiograph HISTORY: RYGB 03/01/2018, | [facility] | | vomiting/pain ever since COMPARISON: 04/27/2018 CT TECHNIQUE: | RADIOLOGY VOICE | | Train System Operator radiograph was performed. Single contrast exam of the esophagus, | RECOGNITION 2 | | gastric pouch, and gastrojejunostomy in upright positioning. | | | Radiation dose reduction technique was maximized where appropriate | | | using pulsed fluoroscopy and fluoro-store images. Fluoro Time 57 | | | second(s) FINDINGS: Train System Operator shows stone in the upper pole of [...] AM PST EXAM: Esophagram | | with barrel filler radiograph HISTORY: RYGB 03/01/2018, vomiting/pain ever since COMPARISON: | | 04/27/2018 CT TECHNIQUE: Train System Operator radiograph was performed. Single contrast exam of the | | esophagus, gastric pouch, and gastrojejunostomy in upright positioning. Radiation dose | | reduction technique was maximized where appropriate using pulsed fluoroscopy and | | fluoro-store images. Fluoro Time 57 second(s) FINDINGS:Train System Operator shows stone in the upper | | [...] Evy Ramirez MD | |Dictation initiated: Evy Raimrez MD 06/07/2018 10:04 AM | + + [...] + + + + | [facility] | [address] [facility] | [place] [address] | | | SERVICES, CORE | CLARENCE [...] | [facility] | | considered for monitoring terminal makeup operator glycemic control in patients with: | [...] | + + + + + | [facility] | [address] | [place] [address] | | | SERVICES, SPECIAL | PARK [...] | | | | | determined by [facility] | | | | | | Laboratories. See | | | | | | Compliance Statement B: | | | | | | Dentalink/CSPerformed | | | | | | by [employer],[address] | | | | | | [facility] | | | | | | [address] | | | | | | [phone].[employer]. | | | | | | com, [...] [facility] | [address] | [place], [place] | | | [facility] | | [address] | | + + + + + [...] | | | LABORATORY | | | STATELESS | | | SERVICES, | | | | | | CORE | | + + + + + + | EGFR NON | >60 | >60 mL/min | [facility] | | | -RANJI | | | LABORATORY | | | [...] + + + + | [facility] | [address] | [place] [address] | | | SERVICES, CORE | PARK [...] LABORATORY | [address] | [place] [address] | | | SERVICES, CORE | PARK [...] + + + + | [facility] | [address] | [place] [address] | | | SERVICES, CORE | CLARENCE [...] [facility] | [address] | [place] [address] | | | SERVICES, CORE | PARK [...] [facility] | [address] | [place] [address] | | | SERVICES, CORE | PARK [...] | + + + + + | [facility] | [address] | [place] [address] | | | SERVICES, LYDIA | CLARENCE [...]
--- OUTSIDE RECORDS SUMMARY | ~2020-02-27 | XMS | Encounter Summary ---
Demographics + + + | Address | [address] | | | [place] [address] | + + + | Home Phone [...] [place], [place] | | | | | [address] | | + + + + + | Ellie Vang | ECON | Unknown | | + + + + + Care Team Providers + +------+ + | Care Construction Equipment Overhauler Name | Role | Phone | + +------+ + | Fadi Goodrich DO | PCP | | + +------+ + Encounter Details +--------+ + + + + | Date | Type | Department | Care Team | Description | +--------+ + + + + | 03/02/ | Abstract | Digestive Health | Hernandez Brian, | | | 2012 | | [place] [address] | [address] [facility] | | | | | [address] [facility] | [facility] | | | | | for [facility] and | [place], [place] | | | | | [facility] 2 | [address] | | | | | [place], [place] | [phone] | | | | | [address] | | | | | | [phone] | | | +--------+ + + + [...] Ave | | | | | | [place], [place] | | | | | | [address] | | | | | | [phone] | | | | | | | | +--------+ + + + + | 04/04/ | Telephone-S | Surgery | Orquidea Cristobal, | | | 2019 | sherrill | | LEASE OPERATOR [address] | | | | | | [place], [place] | | | | | | [address] | | | | | | [phone] | | | | | | | | +--------+ + + + + documented as of this encounter Visit Diagnoses Not on filedocumented in this encounter"
--- OUTSIDE RECORDS SUMMARY | ~2020-02-27 | XMS | Encounter Summary ---
Demographics + + + | Address | [address] | | | [place] [address] | + + + | Home Phone [...] | + + + + + | Katalian Padilla | ECON | [address] | | | | | [place], [place] | | | | | [address] | | + + + + + | Ellie Vang | ECON | Unknown | | + + + + + Care Team Providers + +------+ + | Care Technology Manager Name | Role | Phone | [...] (PHENTERMINE 37.5 mg | | | | [place] at | [place], [place] | ); Refill Request | | | | [place] [address] | [address] | | | | | [facility] | [phone] | | | | | [facility] | | | | | | [place], [place] | | | | | | [address] | | | | | | [phone] | | | +--------+ + + + [...] Ave | | | | | | [place], [place] | | | | | | [address] | | | | | | [phone] | | | | | | | | +--------+ + + + + | 04/04/ | Telephone-S | Surgery | Orquidea Cristobal, | | | 2019 | cheduled | | OPERATING ROOM NURSE [address] | | | | | | [facility] [place] | | | | | | [address] | | | | | | [phone] | | | | | | | | +--------+ + + + + documented as of this encounter Visit Diagnoses Not on filedocumented in this encounter"
--- OUTSIDE RECORDS SUMMARY | ~2020-02-27 | XMS | Encounter Summary ---
Demographics + + + | Address | [address] | | | [place] [address] | + + + | Home Phone [...] [place], [place] | | | | | [address] | | + + + + + | Ellie Vang | ECON | Unknown | | + + + + + Care Team Providers + +------+ + | Care Show Horse Driver Name | Role | Phone | [...] Records | | 2019 | | Center [place] [address] | MD [address] | Review | | | | [facility] | [facility] | | | | | [facility] and | [place], [place] | | | | | [place] [address] | [address] | | | | | [place], [place] | [phone] | | | | | [address] | | | | | | [phone] | | | +--------+ + + + [...] Ave | | | | | | [place], [place] | | | | | | [address] | | | | | | [phone] | | | | | | | | +--------+ + + + + | 04/04/ | Telephone-S | Surgery | Orquidea Cristobal, | | | 2019 | cheduled | | POWDER ROOM ATTENDANT [address] | | | | | | [place], [place] | | | | | | [address] | | | | | | [phone] | | | | | | | | +--------+ + + + + documented as of this encounter Visit Diagnoses Not on filedocumented in this encounter"
--- OUTSIDE RECORDS SUMMARY | ~2020-02-27 | XMS | Encounter Summary ---
Demographics + + + | Address | [address] | | | [place] [address] | + + + | Home Phone [...] Team Providers + +------+ + | Care Title Manager Name | Role | Phone | + +------+ + PCP | Unavailable | + +------+ + Encounter Details +--------+ + + + + | Date | Type | Department | Care Team | Description | +--------+ + + + + | 02/05/ | Hospital | [facility] | RussellErich Brynn | | | 2004 | Encounter | MED CTR SLEEP | MD Michael [address] | | | | | [place] [address] | [address] [place] | | | | | [place], [place] | [place] [address] | | | | | [address] | [phone] | | | | | [phone] | | | +--------+ + + + [...] | | | | | [place] [address] | | | | | | [phone] | | | | | | | | +--------+ + + + + | 03/29/ | Office | Cardiology | Sulema Altamirano | | | 2019 | Visit | | [address] | | | | | | [address] | | | | | | [place] [address] | | | | | | [phone] | | | | | | | | +--------+ + + + + documented as of this encounter Visit Diagnoses Not on filedocumented in this encounter"
--- OUTSIDE RECORDS SUMMARY | ~2020-02-27 | XMS | Encounter Summary ---
Demographics + + + | Address | [address] | | | [place] [address] | + + + | Home Phone [...] [place], [place] | | | | | [address] | | + + + + + | Ellie Vang | ECON | Unknown | | + + + + + Care Team Providers + +------+ + | Care Real Estate Paralegal Name | Role | Phone | + [...] + | 02/07/ | Hospital | [address] | [place], | | | 2014 - | Encounter | [address] | [address] | | | | | [place], [place] | [address] | | | 02/08/ | | [address] | [place], [place] | | | 2013 | | [phone] | [address] | | | | | | [phone] | | | | | | | [...] the resident s note. PRADIP STARR MD [facility] [address] [facility] [place] [address] orrMaryam hill MD - 1:05 PM PDT [facility] DEPARTMENT OF SURGERY EMERGENCY GENERAL [...] DM who presented to the [facility] ED ([place], [place]) on 02/06/14, with a week hi story of RUQ abdominal pain that radiates to her back. There, she was found to have leukocyt osis and multiple tiny, mobile stones, + sonographic Peterson's sign on abdominal ultrasound, concerning for acute cholecystitis. She was givenIV antibiotics (cipro, flagyl) and pain med s, then transferred to [facility] by [facility] for further care. Ms. Romero endorsed [...] up with Trauma Emergency General Surgery at [facility] In 4 weeks. (follow up in 2-4 weeks ) Contact information [address] [facility] Mailcode: L223a [facility] [address] [place] [address] Thank you for the [...] the resident s note. PRADIP STARR MD [facility] [address] [place] [address] orrMaryam hill MD - 5:17 AM PDT [facility] DEPARTMENT OF SURGERY EMERGENCY GENERAL SURGERY Division [...] tolerated MARYAM RHODES MD PGY-1, General Surgery [phone] pager number [facility] [place] A [address] [place] [facility] [place] [address] documented in this encoun ter Plan of Treatment +--------+ + + + + | Date | Type | Specialty | Care Team | Description | +--------+ + + + + | 03/22/ | Office | Cardiology | Randell Franks, | | | 2019 | Visit | | MD [address] | | | | | | [place], [place] | | | | | | [address] | | | | | | [phone] | | | | | | | | +--------+ + + + + | 04/04/ | Telephone-S | Surgery | Orquidea Cristobal, | | | 2019 | cheduled | | INSTRUCTIONAL TECHNOLOGY COACH [address] | | | | | | [place], [place] | | | | | | [address] | | | | | | [phone] | | | | | | | [...] MARQUAM | [address] | [place], [place] | | | JUSTINE DAWN OF CARE | [facility] | [address] | | | TESTS | | | [...] (H) | 60 - 99 mg/dL | [facility] - | | | GLUCOSE, | [...] MARQUAM | [address] | [place], [place] | | | [place] POINT OF CARE | [address] | [address] | | | TESTS | | | [...] AMES | [address] | [place], [place] | | | JUSTINE DAWN OF JAKY | [facility] | [address] | | | TESTS | | | [...] MARQUAM | [address] | [place], [place] | | | [place] POINT OF CARE | [address] | [address] | | | TESTS | | | [...] [facility] | [address] | [place] [address] | | | SERVICES, | [address] [...] [facility] | [address] | [place] [address] | | | SERVICES, | [address] [...] [facility] | [address] | [place], [place] | | | [place] [facility] | [address] | [address] | | | TESTS | | | [...] [facility] | [address] | [place] [address] | | | SERVICES, CORE | PARK [...] [facility] | [address] | [place] [address] | | | SERVICES, CORE | CLARENCE [...] [facility] | [address] | [place] [address] | | | SERVICES, CORE | CLARENCE [...] [facility] | [address] | [place] [address] | | | SERVICES, CORE | PARK [...] | | | LABORATORY | | | ALGERIAN | | | SERVICES, | | | [...] | + + + + + | [facility] | [address] | [place] [address] | | | CLAIRE, CORE | CLARENCE [...] + | [facility] | [address] [facility] [address] | [place], [place] | | | [place] [facility] | [address] | [address] | | | TESTS | | | [...] pattern. | | | | | | Housing Case Manager | | | | | | sections [...] + + + + | [facility] | [address] | [place] [address] | | | PATHOLOGY | [address] [...]
--- OUTSIDE RECORDS SUMMARY | ~2020-02-27 | XMS | Encounter Summary ---
Demographics + + + | Address | [address] | | | [place] [address] | + + + | Home Phone [...] [place], [place] | | | | | [address] | | + + + + + | Ellie Vang | ECON | Unknown | | + + + + + Care Team Providers + +------+ + | Care Physician Support Coordinator Name | Role | Phone | [...] | 2018 | Visit | Center at [facility] [address] | MD [address] | surgery (Primary | | | | [address] | [place], [place] | Dx); History of | | | | for Health and | [address] | Frandy-en-Y gastric | | | | Healing, Building [address] | [phone] | bypass | | | | [place], [place] | | | | | | [address] | | | | | | [phone] | | | +--------+---------+ + + + [...] to the healing stomach. There are also terminal supervisor complications of poor wound healing and gastric u lcers. These ulcers are started by smoking or using other nicotine products (vapor cigarett es etc). Gastric bypass patients should also avoid NSAIDS(ibuprofen, advil, motrin, naprosyn/naproxe n/aleve) to prevent gastric/marginal ulcers. Please visit with our Cutter Operator Helper (RD) for instructions about your Bariatric diet, assistance with calorie counts, tips and tricks for working with your diet restrictions, an d recipes after bariatric surgery. Daily yogurt; even just 1 tablespoon twice a day will provide enough probiotics to optimize digestion. Try to use a high-quality, probiotic-dense yogurt (eg Zaria's, [place], Lif eway Kefir, Provider Relations Consultant Duke's Slovak Yogurt). Remember to chew your food well, [...] protein daily, and 64 oz water daily. Management Lead just changed diet to he lp her [...] by communicating with her mother - Follow Management Lead recommendations to help with nausea (decrease volume, [...] Anisa Dillon MD PGY-1, Red Surgery Pager: [phone] documented in this encounter Plan of Treatment +--------+ + + + + | Date | Type | Specialty | Care Team | Description | +--------+ + + + + | 03/22/ | Office | Cardiology | Randell Franks, | | | 2019 | Visit | | [address] | | | | | | [place], [place] | | | | | | [address] | | | | | | [phone] | | | | | | | | +--------+ + + + + | 04/04/ | Telephone-S | Surgery | Orquidea Cristobal, | | | 2019 | cheduled | | STENCILING MACHINE TENDER [address] | | | | | | [place], [place] | | | | | | [address] | | | | | | [phone] | | | | | | | [...]
--- OUTSIDE RECORDS SUMMARY | ~2020-02-27 | XMS | Encounter Summary ---
Demographics + + + | Address | [address] | | | [place] [address] | + + + | Home Phone [...] + | Katalina Padilla | ECON | [address] | | | | | [place], [place] | | | | | [address] | | + + + + + | Ellie Vang | ECON | Unknown | | + + + + + Care Team Providers + +------+ + | Care Chief Risk Officer Name | Role | Phone | [...] | | gastric | [address] | [place] | | | | | bypass | [place], [place] | Pavilion, 4th | | | | | Ventral | [address] | floor | | | | | hernia | Phone: | [place], [place] | | | | | without | [phone] | [phone] | | | | | obstruction | Fax: | Phone: | | | | | or gangrene | [phone] | [phone] | | | | | Mixed | | Fax: | | | | | hyperlipidem | | [phone] | | | | | ia Diabetes [...] | | | | | | | MT UPPER GI | | | | | | | ENDOSCOPY,BI | | | | | | | OPSY MT | | | | | | [...] | 2018 | Visit | Center at [facility] [address] | ACNP [address] | gastric bypass | | | | [address] | Ave [facility] [place] | (Primary Dx); | | | | for Health and | [address] | Ventral hernia | | | | Healing, Building 2 | [phone] | without obstruction | | | | [place], [place] | | or gangrene; Mixed | | | | [address] | | hyperlipidemia; | | | | [...] to POC and will call or send Transfer To message if any issues. documented in this [...] tongue once daily., Disp: , Rfl: CALCIUM CRB&IBL-M6-AGM95-GENIS ORAL, Take 2 tablets by mouth two [...] 70 and over in adult ([facility]) Myalgia and myositis Nausea Neck pain Numbness Osteoarthritis of knee Palpitations Pneumonia Shortness of breath Staphylococcal infection Stroke ([facility]) TIA (transient ischemic attack) due to Bromocriptine Tinea corporis UTI (urinary tract infection) Past Surgical History Procedure Laterality Date Tonsillectomy and adenoidectomy Appendectomy, open 2010 Umbilical hernia repair 2010 Treatment of ankle fracture with screws remaining Incision and drainage of wound abscess x2 midline transverse wound s/p open appendectomy 2010 Ventral hernia repair 10/2012 Dr. Andie Brian Incisional hernia repair 03/01/2015 [facility]/ Dr. Cantu. Primary fascial closure and scar excision Lap gastric byp, and nilesh-en-y gastroenterostomy w/ nilesh limb 150 cm or less [facility] Social History Social History Marital status: Single Spouse name: N/A Number of children: 1 Years of education: N/A Occupational History disabled None Social History Main Topics Smoking status: Former Smoker Smokeless tobacco: Never Used Alcohol use No Drug use: No Sexual activity: Not on file Social History Narrative Updated 11/09/15 She lives in [place] with her mother and her sister (also her caregiver) lives in an apa rtment/duplex below. She has 2 grandchildren (age 4 and 7) who live with her daughter and son-in-law Her boyfriend lives in [place] HFpEF, DM2, HTN, Sleep Apnea (unable to [...] program here and refer her to our labor specialist who also has expertise in physical [...] after this visit. Ronna Clarke DNP ACNP CHIEF ENGINEER Bariatric Surgery Nurse Practitioner [facility] | [address]. | [place], [place] | [address] | documented in this e ncounter Plan of Treatment +--------+ + + + + | Date | Type | Specialty | Care Team | Description | +--------+ + + + + | 03/22/ | Office | Cardiology | Randell Franks, | | | 2019 | Visit | | [address] | | | | | | [place], [place] | | | | | | [address] | | | | | | [phone] | | | | | | | | +--------+ + + + + | 04/04/ | Telephone-S | Surgery | Orquidea Cristobal, | | | 2019 | sherrill | | CHIEF ENGINEER [address] | | | | | | [place], [place] | | | | | | [address] | | | | | | [phone] | | | | | | | | +--------+ + + + + documented as of this encounter Results X-RAY MIRIAM CASTELLON (06/07/2018 9:47 AM PST) + + | Specimen | + + | | + + + + + | Narrative | Performed At | + + + | EXAM: Esophagram with molecular pathologist radiograph HISTORY: RYGB 03/01/2018, | [facility] | | vomiting/pain ever since COMPARISON: 04/27/2018 CT TECHNIQUE: | RADIOLOGY VOICE | | Clerical Secretary radiograph was performed. Single contrast exam of the esophagus, | RECOGNITION 2 | | gastric pouch, and gastrojejunostomy in upright positioning. | | | Radiation dose reduction technique was maximized where appropriate | | | using pulsed fluoroscopy and fluoro-store images. Fluoro Time 57 | | | second(s) FINDINGS: Clerical Secretary shows stone in the upper pole of [...] AM PST EXAM: Esophagram | | with molecular pathologist radiograph HISTORY: RYGB 03/01/2018, vomiting/pain ever since COMPARISON: | | 04/27/2018 CT TECHNIQUE: Clerical Secretary radiograph was performed. Single contrast exam of the | | esophagus, gastric pouch, and gastrojejunostomy in upright positioning. Radiation dose | | reduction technique was maximized where appropriate using pulsed fluoroscopy and | | fluoro-store images. Fluoro Time 57 second(s) FINDINGS:Clerical Secretary shows stone in the upper | | [...] [facility] | [address] [facility] [facility] | [place] [address] | | | SERVICES, CORE | CLARENCE [...] | [facility] | | considered for monitoring supervisor intermediates glycemic control in patients with: | LABORATORY [...] | + + + + + | [facility] | [address] | [place] [address] | | | SERVICES, SPECIAL | PARK [...] | | | | | determined by [employer] | | | | | | Laboratories. See | | | | | | Compliance Statement B: | | | | | | [employer]/CSPerformed | | | | | | by [employer],[address] | | | | | | [facility] | | | | | | [address] | | | | | | [phone]. | | | | | | com, [...] [facility] | [address] | [place], [place] | | | UNIV PTH - INT[facility] | | [address] | | + + + + + [...] [facility] | [address] | [place] [address] | | | SERVICES, CORE | PARK [...] LABORATORY | [address] | [place] [address] | | | SERVICES, CORE | PARK [...] [facility] | [address] | [place] [address] | | | SERVICES, CORE | CLARENCE [...] [facility] | [address] | [place] [address] | | | SERVICES, CORE | PARK [...] [facility] | [address] | [place] [address] | | | SERVICES, CORE | PARK [...] + + + | [facility] | [address] | [place] [address] | | | SERVICES, LYDIA | CLARENCE [...]
--- OUTSIDE RECORDS SUMMARY | ~2020-02-27 | XMS | Encounter Summary ---
Demographics + + + | Address | [address] | | | [place] [address] | + + + | Home Phone [...] [place], [place] | | | | | [address] | | + + + + + | Ellie Vang | ECON | Unknown | | + + + + + Care Team Providers + +------+ + | Care Repairer And Checker Name | Role | Phone | [...] evaluation | | 2020 | cheduled | [facility] | | | | | | [facility] | | | | | | [address] | | | | | | [facility] | | | | | | and Healing, | | | | | | Building [address] | | | | | | [place], [place] | | | | | | [address] | | | | | | [phone] | | | +--------+ + + + + Anesthesia Record + + + + + | Procedure Name | Responsible | Anesthesia Start | Anesthesia Stop Time | | | Anesthesiologist | Time | | + + + + + | OPEN VENTRAL HERNIA | Andie Hope MD | 08/19/19 1417 | 08/19/19 9764 | | REPAIR (N/A ) | | [...] | | | , POLINA; Endotracheal | CERAMICS MACHINE OPERATOR | CERAMICS MACHINE OPERATOR | | | Tube; 7.5; Oral; Cuffed; [...] PM PST PREOPERATIVE INSTRUCTIONS Surgery check-in location: [facility] Surgery Check in Time: you will receive a call 1-3 business days before your surgery confi rming your exact arrival/check-in time for your surgery day. We know that planning for surg eileen can be stressful and involve a lot of family/friend/transportation coordination as well as hotel arrangements. [facility] does not have access to check in [facility], and we encourage you to [...] ACID (VITAMIN C) 500 MG TABLET CALCIUM CRB&LSI-S5-BRU60-GENIS ORAL CYANOCOBALAMIN (VIT B-12) 1,000 MCG TABLET [...] ch as Uber/Lyft), or public transportation. An Uber/Lyft/water taxi driver does not count as the responsible [...] is after office hours, call the [facility] stretch machine operator at [phone] and ask them to page him or [...] Ave | | | | | | [place], [place] | | | | | | [address] | | | | | | [phone] | | | | | | | | +--------+ + + + + | 04/04/ | Telephone-S | Surgery | Orquidea Cristobal, | | | 2019 | cheduled | | GOLD BLOWER [address] | | | | | | [place], [place] | | | | | | [address] | | | | | | [phone] | | | | | | | | +--------+ + + + + documented as of this encounter Visit Diagnoses Not on filedocumented in this encounter
--- OUTSIDE RECORDS SUMMARY | ~2020-02-27 | XMS | Encounter Summary ---
Demographics + + + | Address | [address] | | | [place] [address] | + + + | Home Phone [...] [place], [place] | | | | | [address] | | + + + + + | Ellie Vang | ECON | Unknown | | + + + + + Care Team Providers + +------+ + | Care Fertilizer Processing Supervisor Name | Role | Phone [...] | | | | [address] | [place], [place] | | | | | | [place], | [address] | | | | | | [place] | Phone: | | | | | | [address] | [phone] | | | | | | Phone: | Fax: | | | | | | [phone] | [phone] | | | | | | Fax: | | | | | | | [phone] | | +--------+--------+ + + + + [...] | | CT ABDOMEN & | [address] [facility] | | | | | PELVIS W IV | for Health | Hospital, | | | | | CONTRAST | and Healing, | 10th Floor | | | | | | Building [address] | [place], [place] | | | | | | [place], | [address] | | | | | | [place] | Phone: | | | | | | [address] | [phone] | | | | | | Phone: | Fax: | | | | | | [phone] | [phone] | | | | | | Fax: | | | | | | | [phone] | | +--------+--------+ + + + + Encounter Details +--------+ + + + + | Date | Type | Department | Care Team | Description | +--------+ + + + + | 10/07/ | Hospital | Radiology/Imaging | | | | 2012 | Encounter | Lab at [facility] [address] | | | [address] [facility] for | | | | | | Health and Healing, | | | | | | Building 1, 3rd | | | | | | Floor [facility] [place] | | | | | | [address] | | | | | | [phone] | | | +--------+ + + + [...] Ave | | | | | | [place], [place] | | | | | | [address] | | | | | | [phone] | | | | | | | | +--------+ + + + + | 04/04/ | Telephone-S | Surgery | Orquidea Cristobal, | | | 2019 | cheduled | | RABBLER [address] | | | | | | [place], [place] | | | | | | [address] | | | | | | [phone] | | | | | | | [...] + +---------+ + + | [facility] DEPARTMENT OF | | | [...] [address] | [place] [address] | | | OF CARE TESTS | | | | + + + + + documented in this encounter Visit Diagnoses + + | Diagnosis | + + | Hernia Hernia of unspecified site of abdominal cavity without mention of obstruction | | or gangrene | + + documented in this encounter"
--- OUTSIDE RECORDS SUMMARY | ~2020-02-27 | XMS | Encounter Summary ---
Demographics + + + | Address | [address] | | | [place] [address] | + + + | Home Phone [...] + | Katalina Padilla | ECON | [address] | | | | | [place], [place] | | | | | [address] | | + + + + + | Ellie Vang | ECON | Unknown | | + + + + + Care Team Providers + +------+ + | Care Bulk Sealer Name | Role | Phone | [...] Randell | | | | | | [address] [address] | [address] | | | | | [address], | Ave | | | | | | [address] | [place], [place] | | | | | | [place], [place] | [address] | | | | | | [address] | Phone: | | | | | | Phone: | [phone] | | | | | | [phone] | Fax: | | | | | | Fax: | [phone] | | | | | | [phone] | | +--------+--------+ + + + + Encounter Details +--------+---------+ + + + | Date | Type | Department | Care Team | Description | +--------+---------+ + + + | 08/29/ | Office | Cardiology | Randell Franks, | HTN (hypertension) | | 2013 | Visit | Preventive at [facility] | MD [address] | (Primary Dx); Type 2 | | | | [address] | [place], [place]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 | | | | [facility] | [address] | ([facility]); Morbid | | | | and Healing, | [phone] | obesity (HCC) | | | | Building [address] | | | | | | [place], [place] | | | | | | [address] | | | | | | [phone] | | | +--------+---------+ + + + [...] | Visit | | [address] | | | | | | [place], [place] | | | | | | [address] | | | | | | [phone] | | | | | | | | +--------+ + + + + | 04/04/ | Telephone-S | Surgery | Orquidea Cristobal, | | | 2019 | cheduled | | FROG SHAKER [address] | | | | | | [place], [place] | | | | | | [address] | | | | | | [phone] | | | | | | | [...]
--- OUTSIDE RECORDS SUMMARY | ~2020-02-27 | XMS | Encounter Summary ---
Demographics + + + | Address | [address] | | | [place] [address] | + + + | Home Phone | | + + + | Preferred Language | Unknown | + + + | Marital Status | | + + + | Scientologist Affiliation | Unknown | + + + | Race | Unknown | + + + | Ethnic Group | Unknown | + + + Author + + + | Author | [facility] | | | and Jeffana | + + + | Organization | [facility] [...] + +------+ + | Care Sheet Metal Duct Installer Helper Name | Role | Phone | + +------+ + | Jorje Hill | PCP | | + +------+ + Encounter Details +--------+ + + + + | Date | Type | Department | Care Team | Description | +--------+ + + + + | 06/17/ | Telephone | [facility] | Christian Dawson, | | | 2019 | | CENTER CV INTRA OP | [address] | | | | | [address] | [address] [address] [place], | | | | | [place], [place] | [place] [address] | | | | | [address] | [phone] | | | | | [phone] | | | +--------+ + + + [...] | | | | | [place] [address] | | | | | | [phone] | | | | | | | | +--------+ + + + + | 03/29/ | Office | Cardiology | Sulema Altamirano | | | 2020 | Visit | | [address] | | | | | | [address] | | | | | | [place] [address] | | | | | | [phone] | | | | | | | | +--------+ + + + + documented as of this encounter Visit Diagnoses Not on filedocumented in this encounter"
--- OUTSIDE RECORDS SUMMARY | ~2020-02-27 | XMS | Encounter Summary ---
Demographics + + + | Address | [address] | | | [place] [address] | + + + | Home Phone [...] [place], [place] | | | | | [address] | | + + + + + | Ellie Vang | ECON | Unknown | | + + + + + Care Team Providers + +------+ + | Care Agriculture Extension Specialist Name | Role | Phone | [...] Encounter | Procedural Unit | MD Barb [address] | | | | | ([facility]) at [facility] [address] [place], [place] | | | | | [address] | [address] | | | | | Mailcode: [place] | [phone] | | | | | for Health and | | | | | | Healing, [address] | | | | | | [place], [place] | | | | | | [address] | | | | | | [phone] | | | +--------+ + + + [...] hours or on weekends and holiday Hospital Experimental Plastics Fabricator toll free [phone]. [phone] and have the GI doctor law office receptionist paged. The provider who performed your procedure: [...] | | 0 | | | | CRB&CEX-P8-MZT33-GEN | mouth two times | | | [...] from the original. PRE PROCEDURE NOTE: MR# [id number] Subjective: Elzbieta Cristina is a 44 y.o. [...] [address] | | | | | | [place], [place] | | | | | | [address] | | | | | | [phone] | | | | | | | | +--------+ + + + + | 04/04/ | Telephone-S | Surgery | Orquidea Cristobal, | | | 2019 | cheduled | | CONTENT MANAGEMENT CONSULTANT [address] | | | | | | [place], [place] | | | | | | [address] | | | | | | [phone] | | | | | | | [...] + | MRN: | [facility] | | [id number] Date: 04/07/2019Patient Name: Elzbieta Curtis #: | ENDOSCOPY | | [id number] of : 1975CSN: [id number] Type: | | | AmbulatoryRoom: Endo 5Procedure: Upper GI | | | endoscopyIndications: Generalized abdominal pain, Nausea | | | with vomitingProviders: TAL LUND MD | | | (Doctor), KEERTHI BERNARD RN (Nurse), | | | [place] BASCON (Service Developer)Referring MD: SYLVIA Kilpatrick | | | KENNY [...] | | | The [employer] [id number] Endoscope #[id number] | | | was introduced through the [...] + + | Performing | Address | City/State[facility] | Phone Number | | [...]
--- OUTSIDE RECORDS SUMMARY | ~2020-02-27 | XMS | Encounter Summary ---
Demographics + + + | Address | [address] | | | [place] [address] | + + + | Home Phone | | + + + | Preferred Language | Unknown | + + + | Marital Status | | + + + | Orthodoxy Affiliation | Unknown | + + + | Race | Unknown | + + + | Ethnic Group | Unknown | + + + Author + + + | Author | [facility] | | | and Jeffana | + + + | Organization | [facility] | | [...] Providers + +------+ + | Care Aircraft Rigging And Controls Mechanic Name | Role | Phone | + +------+ + PCP | Unavailable | + +------+ + Encounter Details +--------+ + + + + | Date | Type | Department | Care Team | Description | +--------+ + + + + | 01/01/ | Orders Only | [facility] | Kishan Peñaloza | | | 2015 | | CONVERSION [address] | MD Vlad [address] | | | | | [address] | [address] [facility] [address] | | | | | [place], [place] | [place] [address] | | | | | [address] | [phone] | | | | | [phone] | | | +--------+ + + + [...] D | | | | | | [place] [address] | | | | | | [phone] | | | | | | | | +--------+ + + + + | 03/29/ | Office | Cardiology | Sulema Altamirano | | | 2019 | Visit | | [address] | | | | | | [address] | | | | | | [place] [address] | | | | | | [phone] | | | | | | | [...] | | to assess segmental wall motion, Mozier visually estimates LVEF | | | >70%. [...] assess | | | segmental wall motion, Mozier visually estimates LVEF >70%. RV | | [...] not well visualized. MEASUREMENTS | | | Cable Television Access Coordinator: JESSICA Authenticated by: Edson Cruz DO | | | Report Date/Time: 01-02-2016 19:12:36 | | + + + + + | Procedure Note | + + | Aditya, David Conversion - 03/17/2019 8:31 PM PDT Patient Name: Sherrell Cristina | | : 1975 Performing Physician: Edson Cruz | | DO INDICATIONS S | | OB CONCLUSIONS 1. See Dictation. TDS. Sinus. 2. Cardiac chamber dimensions | | grossly NML. LV systolic and diastolic functions grossly NML, unable to assess | | segmental wall motion, Mozier visually estimates LVEF >70%. RV grossly NML. [...] | IVC was not well visualized. MEASUREMENTS Cable Television Access Coordinator: HONEYuthenticated by: | | Edson Jones Date/Time: 01-02-2016 19:12:36 IMPRESSION: 1. See Dictation. | | TDS. Sinus. 2. Cardiac chamber dimensions grossly NML. LV systolic and diastolic | | functions grossly NML, unable to assess segmental wall motion, Mozier visually estimates | | LVEF >70%. RV [...] | |MEASUREMENTS | | | | | |Cable Television Access Coordinator: | |Authenticated by: Edson Cruz DO | |Report Date/Time: 01-02-2016 19:12:36 | | | |IMPRESSION: | |1. See Dictation. TDS. Sinus. 2. Cardiac chamber dimensions grossly NML. LV systolic and diastolic functions grossly NML, unable to assess segmental wall motion, Mozier visually es timates LVEF >70%. RV grossly | |NML. 3. Aortic valve sclerotic, no /AI | | observed. Mitral and Tricuspid valves grossly NML, Pulmonic valve not seen well. Trace T R. 4. No Pericardial effusion. 5. IVC not seen well. | + + documented in this encounter Visit Diagnoses Not on filedocumented in this encounter"
--- OUTSIDE RECORDS SUMMARY | ~2020-02-27 | XMS | Encounter Summary ---
Demographics + + + | Address | [address] | | | [place] [address] | + + + | Home Phone [...] Team Providers + +------+ + | Care Scaler Packer Name | Role | Phone | [...] | Gastroenterol | Diagnoses | Theresa, | Julio, | | | | ogy | Other | Kenyatta Huizar, | Jyoti, | | | | | specified | MD [address] | WEB CONTENT EXECUTIVE [address] | | | | | diseases of | [address] | [address] | | | | | liver | [place], | [address] | | | | | Procedures | [place] | [place], | | | | | office visit | [address] | [place] [address] | | | | | | Phone: | Phone: | | | | | | [phone] | | | | | | Fax: | Fax: | | | | | | [phone] | [phone] | +--------+--------+ + + + + Encounter Details +--------+---------+ + + + | Date | Type | Department | Care Team | Description | +--------+---------+ + + + | 02/15/ | Office | [facility] | [facility] | 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 She reports that approximately 3 months [...] well. She is scheduled to see her [facility] atric surgeons within the next 2 weeks. She [...] right ventricular diastolic dysfunction (HCC) 10/26/2015 Overview: [facility] Last Assessment & Plan: Patient with [...] Pickwickian syndrome Recent admission to [facility] for 100lb weight gain- DC on diuresis [...] PE less likely). -continue warfarin per p harmacy, I would recommend life long therapy but will defer her to PCP Overview: LE Doppler (Nov 07, 2015 ++ DVT LLE The left mid and distal femoral vein and popliteal vein are non compressible with hypoechoic clot w Diabetes mellitus type 2 without retinopathy (HCC) 04/14/2013 Diabetes mellitus with insulin therapy (HCC) 12/27/2014 DM (diabetes mellitus) (HCC) 05/09/2016 Overview: A1c 5.29 Aug 2014 Last [...] with morbid obesity, she is enrolled in [facility] bariatric program. She has lost approximately 50 [...] Plan: TSH WNL 10/2015. She is on [place] thyroid as OP. -TSH WNL -continu e supplementation here Hypoventilation associated with obesity (HCC) 06/16/2013 Last Assessment & Plan: [facility] Bariatric Program, has lost 50lbs. STEFANO (iron deficiency anemia) 02/03/2019 Overview: Presumed due to menses. Venofer 200 qd x 30 October 2015 [facility] Last Assessment & P sharon: Hgb appears to run - in review of records. No concerns of [...] She is to follow-up with surgeons at [facility] as planned. Patient is to call [...] | | | | Visit | | [facility] | | | | | | [place] [address] | | | | | | [phone] | | | | | | | | +--------+ + + + + | 03/29/ | Office | Cardiology | Sulema Altamirano | | 2019 | Visit | | [address] | | | | | | [address] | | | | | | [place] [address] | | | | | | [phone] | | | | | | | [...]
--- OUTSIDE RECORDS SUMMARY | ~2020-02-27 | XMS | Encounter Summary ---
Demographics + + + | Address | [address] | | | [place] [address] | + + + | Home Phone [...] [place], [place] | | | | | [address] | | + + + + + | Ellie Vang | ECON | Unknown | | + + + + + Care Team Providers + +------+ + | Care Bow Maker Production Name | Role | Phone | + +------+ + | Kenyatta Cardenas MD | PCP | | + +------+ + Encounter Details +--------+ + + + + | Date | Type | Department | Care Team | Description | +--------+ + + + + | 03/22/ | Hospital | Radiology/Imaging | Keren Allen, | | | 2019 | Encounter | Lab at [facility] [address] | AGACNP [address] | | | | | [address] [facility] | [address] [place], [place] | | | | | Health and Healing, | [address] | | | | | [place] [address] | [phone] | | | | | Floor [place], [place] | | | | | | [address] | | | | | | [phone] | | | +--------+ + + + [...] | | 0 | | | | CRB&SXA-Y2-STL69-GEN | mouth two times | | | [...] Ave | | | | | | [place], [place] | | | | | | [address] | | | | | | [phone] | | | | | | | | +--------+ + + + + | 04/04/ | Telephone-S | Surgery | Orquidea Cristobal, | | | 2019 | chesteve | | OPEN HEARTH FURNACE LABORER [address] | | | | | | [place], [place] | | | | | | [address] | | | | | | [phone] | | | | | | | [...]
--- OUTSIDE RECORDS SUMMARY | ~2020-02-27 | XMS | Encounter Summary ---
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[address] | | | | | syndrome | [address] | [address] | | | | | Migraine | [place], | D | | | | | without | [place] [address] | GE[place] DAS | | | | | aura, | Phone: | [address] | | | | | intractable, | [phone] | Phone: | | | | | without | Fax: | [phone] | | | | | status | [phone] | Fax: | | | | | migrainosus | | [phone] | + +--------+ + + + + Encounter Details +--------+ + + + + | Date | Type | Department | Care Team | Description | +--------+ + + + + | 01/23/ | Virtual | [facility] | Camille De La Paz, | Intractable chronic | | 2020 | Office | NEUROLOGY [address] | MD Saumya MOE | common migraine | | | Visit | [address] | [address] | without aura | | | | [place], [place] | [place] [address] | (Primary Dx); | | | | [address] | [phone] | Medication overuse | | | | [phone] | | headache | +--------+ + + [...] information carefully each time. Talk to your criminal justice instructor regarding the use of this medicine in children. While this drug m ay be prescribed for children as young as 3 years for selected conditions, precautions do ap ply. What side effects may I notice from receiving this medicine? Side effects that you should report to your doctor or health skin care instructor as soon as p ossible: allergic reactions like skin rash, itching or hives, swelling of the face, lips, or tong ue breathing problems suicidal thoughts, mood changes Side effects that usually do not require medical attention (report to your doctor or health skin care instructor if they continue or are bothersome): dizziness [...] this medicine? Visit your doctor or health skin care instructor for regular checks on your progress. You may want to keep a record at home of how you feel your condition is responding to treatment. You may want to share this information with your doctor or health skin care instructor at each vis it. You should contact your doctor or health skin care instructor if your seizures get worse or if you have any new types of seizures. Do not stop taking this medicine or any of your seiz ure medicines unless instructed by your doctor or health skin care instructor. Stopping your me dicine suddenly can increase [...] dying should be reported to your health skin care instructor right away. Women who become while using this medicine may enroll in the [place] Antie[place] ileptic Drug Registry by calling . This registry collects informatio n about the safety of antiepileptic drug use during . NOTE:This sheet is a summary. It may not cover all possible information. If you have questi ons about this medicine, talk to your doctor, pharmacist, or health care provider. Copyright 2020 [employer] documented in this encounter Progress Notes Camille De La Paz MD - 01/24/2020 7:45 AM PDTFormatting of this note might be different f rom the original. This exam was initially conducted via a secure 256-bit AES encrypted bidirectional video se ssion. This visit was converted to virtual visit due to COVID-19 pandemic. Service was provided [id number] with the patient via interactive videoconferencing Video start time 808 am Video end time 842 am Total time (in minutes) 45+ minutes including review of records, face to face time, documen tation including orders and finalizing care plan You have chosen to receive care through the use of telemedicine. Telemedicine enables [facility] providers at different locations to provide [...] they are located in a state where [place]ille MD am licensed. Subjective: Patient ID: Elzbieta Cristina is a 44 y.o. female. CC: Headaches HPI:Elzbieta is a 44 yo R handed lady from [place], [place] She has a h/o stroke at [...] mg daily.), Disp: 30 tablet, Rfl: 11 Wvdwezg-Vznldamec-Qqgucis D (CITRACAL CALCIUM+D PO), Take 4 tablets [...] tablets qhs, Disp : , Rfl: rizatriptan (MAXALT-TITLE CHECKER) 5 mg disintegrating tablet, Take 5 mg by mouth as needed for Migraine. May repeat in 2 hours if needed, Disp: , Rfl: spironolactone (ALDACTONE) 50 mg tablet, Take 50 mg by mouth Daily., Disp: , Rfl: thyroid (BRAND SALES CONSULTANT THYROID) 30 mg tablet, BRAND SALES CONSULTANT Thyroid 30 mg tablet TAKE ONE TABLET [...] | | | | Visit | | [facility] | | | | | | [place] [address] | | | | | | [phone] | | | | | | | | +--------+ + + + + | 03/29/ | Office | Cardiology | Sulema Altamirano | | | 2020 | Visit | | [address] | | | | | | [address] | | | | | | [place] [address] | | | | | | [phone] | | | | | | | | +--------+ + + + + documented as of this encounter Visit Diagnoses + + | Diagnosis | + + | Intractable chronic common migraine without aura - Primary | + + | Medication overuse headache Drug induced headache, not elsewhere classified | + + documented in this encounter
--- OUTSIDE RECORDS SUMMARY | ~2020-02-27 | XMS | Encounter Summary ---
Demographics + + + | Address | [address] | | | [place] [address] | + + + | Home Phone [...] + | Katalina Padilla | ECON | [address] | | | | | [place], [place] | | | | | [address] | | + + + + + | Ellie Vang | ECON | Unknown | | + + + + + Care Team Providers + +------+ + | Care Plumbing Contractor Name | Role | Phone | + [...] | Visit | Preventive at [facility] | [address] | mellitus without | | | | [address] | [place], [place] | complication, with | | | | [facility] | [address] | long-term current | | | | and Healing, | [phone] | use of insulin (HCC) | | | | [address] | | (Primary Dx); | | | | [place], [place] | | Chronic right-sided | | | | [address] | | heart failure (HCC) | | | | [phone] | | | +--------+---------+ + + + [...] management of her heart failure by her Market Analysis Director 3) Check A1c, lipids 4) Await bariatric surgery in February 2018 5) Continue phentermine 37.5 mg daily 6) Continue wound care, non-pressure ambulation of right foot wound 7) Follow-up 4-6 months In the interim, the patient underwent bariatric surgery and [facility]. Today, the patient reports the [...] 06/23 - She is working with the triage clinician in her office - She is taking [...] tongue once daily., Disp: , Rfl: CALCIUM CRB&LKP-E4-ZEP26-GENIS ORAL, Take 2 tablets by mouth two [...] 3.19 11/28/2016 Lab Results Component Value Date [id number] 88.6 05/27/2018 Lab Results Component Value Date [...] weight of 320lbs. Plan to work with triage clinician from bariatric surgery, identify etio logy of [...] is currently being managed well by her Market Analysis Director with diuretics and mainte nance of her [...] Gissell Clements MD Fellow, Cardiovascular Medicine Pager [phone] signed by Gissell Clements MD at 06/04/2018 [...] Ave | | | | | | [place], [place] | | | | | | [address] | | | | | | [phone] | | | | | | | | +--------+ + + + + | 04/04/ | Telephone-S | Surgery | Orquidea Cristobal, | | | 2019 | cheduled | | MESS ATTENDANT [address] | | | | | | [place], [place] | | | | | | [address] | | | | | | [phone] | | | | | | | [...]
--- OUTSIDE RECORDS SUMMARY | ~2020-02-27 | XMS | Encounter Summary ---
Demographics + + + | Address | [address] | | | [place] [address] | + + + | Home Phone [...] [place], [place] | | | | | [address] | | + + + + + | Ellie Vang | ECON | Unknown | | + + + + + Care Team Providers + +------+ + | Care Sand Conditioner Machine Name | Role | Phone | [...] | | 2020 | | Center at [facility] [address] | MD [address] | | | | | [address] [facility] | [address] | | | | | [facility] and | [place], [place] | | | | | [facility] [address] | [address] | | | | | [place], [place] | [phone] | | | | | [address] | | | | | | [phone] | | | +--------+ + + + [...] Ave | | | | | | [place], [place] | | | | | | [address] | | | | | | [phone] | | | | | | | | +--------+ + + + + | 04/04/ | Telephone-S | Surgery | Orquidea Cristobal, | | | 2019 | cheduled | | MEASUREMENT COORDINATOR [address] | | | | | | [place], [place] | | | | | | [address] | | | | | | [phone] | | | | | | | | +--------+ + + + + documented as of this encounter Visit Diagnoses Not on filedocumented in this encounter"
--- OUTSIDE RECORDS SUMMARY | ~2020-02-27 | XMS | Encounter Summary ---
Demographics + + + | Address | [address] | | | [place] [address] | + + + | Home Phone [...] [place], [place] | | | | | [address] | | + + + + + | Ellie Vang | ECON | Unknown | | + + + + + Care Team Providers + +------+ + | Care Contracts Law Professor Name | Role | Phone | + +------+ + | Fadi Goodrich DO | PCP | | + +------+ + Encounter Details +--------+ + + + + | Date | Type | Department | Care Team | Description | +--------+ + + + + | 02/15/ | Abstract | Digestive Health | Hernandez Brian, | | | 2012 | | [place] [address] [address] | [address] [facility] | | | | | [address] [facility] | [facility] | | | | | for [facility] and | [place], [place] | | | | | [facility] 2 | [address] | | | | | [place], [place] | [phone] | | | | | [address] | | | | | | [phone] | | | +--------+ + + + [...] Ave | | | | | | [place], [place] | | | | | | [address] | | | | | | [phone] | | | | | | | | +--------+ + + + + | 04/04/ | Telephone-S | Surgery | Orquidea Cristobal, | | | 2019 | sherrill | | ELECTRONICS ASSEMBLER [address] | | | | | | [place], [place] | | | | | | [address] | | | | | | [phone] | | | | | | | | +--------+ + + + + documented as of this encounter Visit Diagnoses Not on filedocumented in this encounter"
--- OUTSIDE RECORDS SUMMARY | ~2020-02-27 | XMS | Encounter Summary ---
Demographics + + + | Address | [address] | | | [place] [address] | + + + | Home Phone [...] [place], [place] | | | | | [address] | | + + + + + | Ellie Vang | ECON | Unknown | | + + + + + Care Team Providers + +------+ + | Care Air Traffic Control Equipment Repairer Name | Role | Phone | [...] floor | | | | | | [place], [place] | | | | | | [address] | | | +--------+ + + + [...] | | 2019 | Visit | | [address] | | | | | | [facility] [place] | | | | | | [address] | | | | | | [phone] | | | | | | | | +--------+ + + + + | 04/04/ | Telephone-S | Surgery | Orquidea Cristobal, | | | 2020 | sherrill | | MANAGER [place] [address] | | | | | | [place] | | | | | | [address] | | | | | | [phone] | | | | | | | | +--------+ + + + + documented as of this encounter Visit Diagnoses Not on filedocumented in this encounter"
--- OUTSIDE RECORDS SUMMARY | ~2020-02-27 | XMS | Encounter Summary ---
Demographics + + + | Address | [address] | | | [place] [address] | + + + | Home Phone [...] + | Katalina Padilla | ECON | [address] | | | | | [place], [place] | | | | | [address] | | + + + + + | Ellie Vang | ECON | Unknown | | + + + + + Care Team Providers + +------+ + | Care Test Man Name | Role | Phone | [...] | | | | | obstruction | [place], | for Health | | | | | or gangrene | [place] | and Healing, | | | | | Abdominal | [address] | [address] | | | | | pain, | Phone: | [place], [place] | | | | | unspecified | | [address] | | | | | abdominal | Fax: | Phone: | | | | | location | [phone] | [phone] | | | | | Procedures | | Fax: | | | | | CONSULT TO | | [phone] | | | | | SURGERY - [...] | | | | [address] [place] | Ave [place], [place] | | | | | for Health and | [address] | | | | | [facility] 2 | [phone] | | | | | [place], [place] | | | | | | [address] | | | | | | | [...] [address] | | | | | | [place], [place] | | | | | | [address] | | | | | | [phone] | | | | | | | | +--------+ + + + + | 04/04/ | Telephone-S | Surgery | Orquidea Cristobal, | | | 2019 | sherrill | | COMPLEX DIRECTOR [address] | | | | | | [place], [place] | | | | | | [address] | | | | | | [phone] | | | | | | | [...]
--- OUTSIDE RECORDS SUMMARY | ~2020-02-27 | XMS | Encounter Summary ---
Demographics + + + | Address | [address] | | | [place] [address] | + + + | Home Phone [...] [place], [place] | | | | | [address] | | + + + + + | Ellie Vang | ECON | Unknown | | + + + + + Care Team Providers + +------+ + | Care Rigging Loft Repairer Name | Role | Phone | [...] Dx) | | | | Surgery at [facility] [address] | [place], [place] | | | | | [address] [place] | [address] | | | | | for Health and | [phone] | | | | | [facility], [address], | | | | | | 5th Floor | | | | | | [place], [place] | | | | | | [address] | | | | | | [phone] | | | +--------+---------+ + + + [...] documented as of this encounter Progress Silver oHbson - 05/13/2019 2:30 PM PDT PANNICULECTOMY CONSULT [...] 150 cm or less 8 [facility], Dr Pandey Cholecystectomy, laparoscopic Allergies Allergen Reactions [...] 50 mg by mouth once daily. CALCIUM CRB&HTI-R1-LXF17-GENIS ORAL Take 2 tablets by mouth two [...] [address] | | | | | | [place], [place] | | | | | | [address] | | | | | | [phone] | | | | | | | | +--------+ + + + + | 04/04/ | Telephone-S | Surgery | Orqiudea Cristobal, | | | 2019 | sherrill | | SUPPLY CHAIN INTERN [address] | | | | | | [facility], [place] | | | | | | [address] | | | | | | [phone] | | | | | | | | +--------+ + + + + documented as of this encounter Visit Diagnoses + + | Diagnosis | + + | Excess skin of abdomen - Primary Unspecified hypertrophic and atrophic condition of | | skin | + + documented in this encounter
--- OUTSIDE RECORDS SUMMARY | ~2020-02-27 | XMS | Encounter Summary ---
Demographics + + + | Address | [address] | | | [place] [address] | + + + | Home Phone [...] [place], [place] | | | | | [address] | | + + + + + | Ellie Vang | ECON | Unknown | | + + + + + Care Team Providers + +------+ + | Care Financial Sales Professional Name | Role | Phone | [...] + + | 11/05/ | Hospital | [facility] 14C [address] | Joseph An | | | 2016 - | Encounter | [address] | MD Birgit [address] [facility] | | | | | 14C [facility] | [address] | | | 11/20/ | | [place], [place] | [place], [place] | | | 2016 | | [address] | [address] | | | | | [phone] | [phone] | | | | | | | | | | | | Ana, | | | | | | MD Briana [address] | | | | | | [address] | | | | | | Rd [place], [place] | | | | | | [address] | | | | | | [phone] | | | | | | | | | | | | Carmelina Tucker, | | | | | | JEFFREY-Aimee [address] | | | | | | [address] | | | | | | [place], [place] | | | | | | [address] | | | | | | [phone] | | | | | | | | | | | | Charley Lacey MD | | | | | | Jose Scott MD | | | | | | [address] | | | | | | [address] | | | | | | [place], [place] | | | | | | [address] | | | | | | [phone] | | | | | | | | | | | | Mannie Larkin MD | | | | | | [address] | | | | | | [address] [place], | | | | | | [place] [address] | | | | | | [phone] | | | | | | | | | | | | Tyrone Adrian MD | | | | | | [address] | | | | | | [address] [place], | | | | | | [place] [address] | | | | | | [phone] | | | | | | | [...] did want her to follow up with non destructive evaluation manager in [place]. She should continue working towards bariatric surgery wh ich will ultimately put less stress on her heart. -Continue torsemide 80mg BID -Increase potassium supplementation to KCl 40mg BID -Daily weights and strict 2g Na 2L fluid restricted diet -Close followup with Dr. Goodrich (appt on 11/25 at 11AM) -Needs followup with cardiology in [place] #Left lower extremity DVT #Presumed PE Asymmetric [...] mouth once daily. , Historical Med CALCIUM [id number]-GENIS ORAL Take 2 tablets by mouth two [...] Cyndi Meier Cardiology Congestive Heart Failure at [facility] Cardiology Additional Instructions/Orders: Diet Diabetic (Consistent [...] Good Yosef Segovia MD PGY-1 Internal Medicine [id number] INPATIENT FACULTY PROGRESS NOTE - GM 1 [...] (HCC) 15) Candidal intertrigo Tyrone Adrian MD [facility] 14C airbrush artist photography Division of Hospital Medicine Department of Medicine [address] [place] [phone] [facility] DEPARTMENT: Hosp- [id number] Place of Service: Date of Service: 11/21/2015 CSN: [id number] Modifiers:GC Resident Involved: Yes Suggested CPT: 03992 Discharge Management < 30 minute documented in this encou nter Medications at Time of Discharge + + + +---------+--------+ + | Medication | Sig | Dispensed | Refills | Start | End Date | | | | | | Date | | + + + +---------+--------+ + | CALCIUM | Take 2 tablets by | | 0 | | | | [id number]-GEN | mouth two times | | | [...] (HCC) 15) Candidal intertrigo Tyrone Adrian MD [facility] 14C airbrush artist photography Division of Hospital Medicine Department of Medicine Count Includes [facility] & [facility] [address] [place] [address] [facility] DEPARTMENT: Hosp- [id number] Place of Service: - Date of Service: 11/20/2015 CSN: [id number] Modifiers:CHANDLER Resident Involved: Yes Suggested CPT: 37384 Subsequent Visit Exp Prob Foc/Mod Complexity 25 min olleen Diamond - 016 6:49 AM PDT PHYSICIAN WASTEWATER ANALYST STUDENT PROGRESS NOTE FOR EDUCATIONAL PURPOSES ONLY INPATIENT PROGRESS NOTE PATIENT INFORMATION Patient Name: Elzbieta Cristina Date of : 1975 Date of Admission: 11/06/2015 PCP: Fadi Goodrich DO Room/Bed: [facility] Attending Provider: Tyrone Adrian MD Encounter [...] of ovarian cysts or menses related. Contact SINGER BACK TENDER if TV-US i s ordered. - TV-US [...] - topiramate 200mg po bid JEFFREY Gee-S2 [facility] PA Student Feeding: <2L fluid, Diabetic diet, >2g na Analgesia: APAP, gabapentin, hydrocodone Thromboembolic prophylaxis: Heparin/warfarin Glycemic control: moderate ISS Mobility: Encourage walking and movement Discharge: Expect hospital stay another 2-3 days with PCP FU (Dr. Goodrich) on Saturday 11/25 @ 1 1 am. - Referral to [facility] Code status: FULL Associated attestation - Yosef [...] PCP Yosef Segovia MD PGY-1 Internal Medicine [id number] Tyrone Adrian MD - 11/19/2015 11:51 AM [...] if the PO works) Tyrone Adrian MD [facility] 14C airbrush artist photography Division of Hospital Medicine Department of Medicine Count Includes [facility] [place] [address] [place] [phone] [facility] DEPARTMENT: Hosp- [id number] Place of Service: [facility] Date of Service: 11/19/2015 CSN: [id number] Modifiers:GC Resident Involved: Yes Suggested CPT: 96737 Subsequent Visit Exp Prob Foc/Mod Complexity 25 min lowerbobbi Colleen - 016 6:24 AM PDT PHYSICIAN WASTEWATER ANALYST STUDENT PROGRESS NOTE FOR EDUCATIONAL PURPOSES ONLY INPATIENT PROGRESS NOTE PATIENT INFORMATION Patient Name: Elzbieta Cristina Date of : 1975 Date of Admission: 11/06/2015 PCP: Fadi Goodrich DO Room/Bed: [facility]/08/08 Attending Provider: Tyrone Adrian MD [...] INR: 2.59 Mag 2.2 K: 2.7 ASSESSMENT/PLAN lEzbieta Cristina, a 40 year old morbidly obese [...] of ovarian cysts or menses related. Contact SINGER BACK TENDER if TV-US i s ordered. - TV-US [...] - topiramate 200mg po bid JEFFREY Gee-S2 [facility] PA Student Feeding: <2L fluid, Diabetic diet, [...] can. Yosef Segovia MD PGY-1 Internal Medicine [id number] Tyrone Adrian MD - 11/18/2015 2:01 PM [...] (HCC) 15) Candidal intertrigo Tyrone Adrian MD [facility] 14C airbrush artist photography Division of Hospital Medicine Department of Medicine Count Includes [facility] & [facility] [address] [place] [phone] [facility] DEPARTMENT: Hosp- [id number] Place of Service: Date of Service: 11/18/2015 CSN: [id number] Modifiers:GC Resident Involved: Yes Suggested CPT: 49341 Subsequent Visit Exp Prob Foc/Mod Complexity 25 [...] plan. Yosef Segovia MD PGY-1 Internal Medicine [id number] signed by Yosef Segovia at 11/18/2015 11:52 [...] (HCC) 15) Candidal intertrigo Tyrone Adrian MD [facility] 14C airbrush artist photography Division of Hospital Medicine Department of Medicine Count Includes [facility] & [address] [place] [phone] [facility] DEPARTMENT: Hosp- [id number] Place of Service: - [address] Date of Service: 11/17/2015 CSN: [id number] Modifiers:GC Resident Involved: Yes Suggested CPT: 04761 Subsequent Visit Exp Prob Foc/Mod Complexity 25 min lColleen goff - 016 6:40 AM PDT PHYSICIAN WASTEWATER ANALYST STUDENT PROGRESS NOTE FOR EDUCATIONAL PURPOSES ONLY [...] - topiramate 200mg po bid JEFFREY Gee-S2 [facility] PA Student Feeding: <2L fluid, Diabetic diet, [...] can Yosef Segovia MD PGY-1 Internal Medicine [id number] Tyrone Adrian MD - 11/16/2015 4:59 PM [...] (HCC) 15) Candidal intertrigo Tyrone Adrian MD [facility] 14C airbrush artist photography Division of Hospital Medicine Department of Medicine Count Includes [facility] & [facility] [address] [place] [phone] [facility] DEPARTMENT: Hosp- [id number] Place of Service: - Date of Service: 11/16/2015 CSN: [id number] Modifiers:GC Resident Involved: Yes Suggested CPT: 24648 Subsequent Visit Exp Prob Foc/Mod Complexity 25 min olleen Diamond - 016 6:43 AM PDT PHYSICIAN WASTEWATER ANALYST STUDENT PROGRESS NOTE FOR EDUCATIONAL PURPOSES ONLY INPATIENT PROGRESS NOTE PATIENT INFORMATION Patient Name: Elzbieta Cristina Date of : 1975 Date of Admission: 11/06/2015 PCP: Fadi Goodrich DO Room/Bed: [address] [place] [address] Attending Provider: Tyrone Adrian MD Encounter Information [...] - topiramate 200mg po bid JEFFREY Gee-S2 [facility] PA Student Feeding: <2L fluid, Diabetic diet, [...] a distance to travel to and from [place]. We would ideally arran ge cardiac follow [...] (HCC) 15) Candidal intertrigo Tyrone Adrian MD [facility] 14C airbrush artist photography Division of Hospital Medicine Department of Medicine Count Includes [facility] & [facility] [address] [place] [address] [facility] DEPARTMENT: Hosp- [id number] Place of Service: Date of Service: 11/15/2015 CSN: [id number] Modifiers:GC Resident Involved: Yes Suggested CPT: 19334 Subsequent Visit Detailed/High complexity 35 min lColleen goff - 016 6:33 AM PDT PHYSICIAN WASTEWATER ANALYST STUDENT PROGRESS NOTE FOR EDUCATIONAL PURPOSES ONLY [...] last 8 days Intake 9571.5 ml Output 88997 ml Net since Admission -13174.5 ml -25.938 L = 57.0636 lbs Constitutional: [...] - topiramate 200mg po bid JEFFREY Gee-S2 [facility] PA Student Feeding: <2L fluid, Diabetic diet, [...] can Yosef Segovia MD PGY-1 Internal Medicine [id number] Tyrone Adrian MD - 11/14/2015 4:16 PM [...] (HCC) 15) Candidal intertrigo Tyrone Adrian MD [facility] 14C airbrush artist photography Division of Hospital Medicine Department of Medicine Count Includes [facility] & [facility] [address] [place] [address] [facility] DEPARTMENT: Hosp- [id number] Place of Service: - Date of Service: 11/14/2015 CSN: [id number] Modifiers:CHANDLER Resident Involved: Yes Suggested CPT: 22333 Subsequent Visit Exp Prob Foc/Mod Complexity 25 min olleen Diamond - 016 6:42 AM PDT PHYSICIAN WASTEWATER ANALYST STUDENT PROGRESS NOTE FOR EDUCATIONAL PURPOSES ONLY INPATIENT PROGRESS NOTE PATIENT INFORMATION Patient Name: Elzbieta Cristina Date of : 1975 Date of Admission: 11/06/2015 PCP: Fadi Goodrich DO Room/Bed: [facility] Attending Provider: Tyrone Adrian MD Encounter [...] - topiramate 200mg po bid JEFFREY Gee-S2 [facility] PA Student Feeding: <2L fluid, Diabetic diet, [...] outpatient Yosef Segovia MD PGY-1 Internal Medicine [id number] Tyrone Adrian MD - 11/13/2015 4:06 PM [...] (HCC) 15) Candidal intertrigo Tyrone Adrian MD [facility] 14C airbrush artist photography Division of Hospital Medicine Department of Medicine Count Includes [facility] & [facility] [address] [place] [phone] [facility] DEPARTMENT: Hosp- [id number] Place of Service: Date of Service: 11/13/2015 CSN: [id number] Modifiers:GC Resident Involved: Yes Suggested CPT: 98947 Subsequent Visit Detailed/High complexity 35 min lshell Colleen - 016 6:36 AM PDT PHYSICIAN WASTEWATER ANALYST STUDENT PROGRESS NOTE FOR EDUCATIONAL PURPOSES ONLY INPATIENT PROGRESS NOTE PATIENT INFORMATION Patient Name: Elzbieta Cristina Date of : 1975 Date of Admission: 11/06/2015 PCP: Fadi Goodrich DO Room/Bed: [facility] Attending Provider: Tyrone Adrian MD Encounter Information [...] - topiramate 200mg po bid JEFFREY Gee-S2 [facility] PA Student Feeding: <2L fluid, Diabetic diet, [...] VTE. Yosef Segovia MD PGY-1 Internal Medicine [id number] Tyrone Adrian MD - 11/12/2015 1:59 PM [...] 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, Jordy AIRWAYS CONTROL SPECIALIST, at this point not definitive Plan: continue [...] ongoing 12) Candidal intertrigo Tyrone Adrian MD [facility] 14C airbrush artist photography Division of Hospital Medicine Department of Medicine Count Includes [facility] & [facility] [address] [place] [address] [facility] DEPARTMENT: Hosp- [id number] Place of Service: - Date of Service: 11/12/2015 CSN: [id number] Modifiers:GC Resident Involved: Yes Suggested CPT: 65117 Subsequent Visit Detailed/High complexity 35 min lColleen goff - 016 6:31 AM PDT PHYSICIAN WASTEWATER ANALYST STUDENT PROGRESS NOTE FOR EDUCATIONAL PURPOSES ONLY [...] - topiramate 200mg po bid JEFFREY Gee-S2 [facility] PA Student Feeding: <2L fluid, Diabetic diet, [...] disease. Yosef Segovia MD PGY-1 Internal Medicine [id number] Rucker MD - 11/11/2015 9:19 PM PDTGENERAL [...] diuresis then RHC Mannie Larkin MD Clinical Bottom Saw Operator, Internal Medicine Pager [phone] ERColleen Diamond - 10/25 6:40 AM PDT PHYSICIAN WASTEWATER ANALYST STUDENT PROGRESS NOTE FOR EDUCATIONAL PURPOSES ONLY [...] - topiramate 200mg po bid JEFFREY Gee-S2 [facility] PA Student Feeding: <2L fluid, Diabetic diet, [...] pain Yosef Segovia MD PGY-1 Internal Medicine [id number] Maria Eugenia Leiva RCP - 11/11/2015 6:39 [...] another 5-7 days Mannie Larkin MD Clinical Bottom Saw Operator, Internal Medicine Pager [phone] Yosef Fang - 7:24 AM PDT General [...] plan. Yosef Segovia MD PGY-1 Internal Medicine [id number] signed by Yosef Segovia at 11/10/2015 2:50 [...] heart cath onc e a bit drier tender. In terms of AMARA - does not tolerate CPAP historically. Likely CPAP will be ve ry important for her going forward. Will try overnight oximetry here to assess severity. Discharge planning:Anticipate several days in house. I spent >35 min of which >50% was spent in counseling and coordination of care. Briana Perez MD [facility] Division of Hospital Medicine Grisel Mcghee NP [...] Maker Primary Surrogate Decision Maker Katalina Padilla [facility] [phone] Advanced Directives Existence of Advanced Directive Reviewed: No- Has Interest (11/09/15 1022) Advanced Directives Reviewed Comments: I gave a copy of advance directives (11/09/15 1022) KRISHNA Huertas NP [facility] 14C [address] [facility] [address] [place] [phone] Colleen Tello - 6:41 AM PDT PHYSICIAN WASTEWATER ANALYST STUDENT PROGRESS NOTE FOR EDUCATIONAL PURPOSES ONLY [...] of acute blood loss and anemia of head bookkeeper ela dz and thalassemia is less likely. [...] AM Yosef Segovia MD PGY-1 Internal Medicine [id number] Briana Perez MD - 11/08/2015 2:01 PM [...] and coordination of care. Briana Perez MD [facility] Division of Hospital Medicine olleen Diamond - 11/08/2015 6:26 AM PDT PHYSICIAN WASTEWATER ANALYST STUDENT PROGRESS NOTE FOR EDUCATIONAL PURPOSES ONLY [...] po bid (topamax, nerve pain) JEFFREY Gee-S2 [facility] PA Student Feeding: <2L fluid, Diabetic diet [...] Hair Md, MSc Internal Medicine PGY2 Pager [phone] Kwadwo Freire - 11/07/2015 2:05 PM PDTTransthoracic [...] plan. Yosef Segovia MD PGY-1 Internal Medicine [id number] lowersColleen - 016 8:43 AM PDT PHYSICIAN WASTEWATER ANALYST STUDENT PROGRESS NOTE FOR EDUCATIONAL PURPOSES ONLY [...] perfusion. - consider US to evaluate liver (DGTK-itu-iekyoquta fatty liver dz) and look for ascites. 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 | [place], [place] | | | [facility] | [address] | [address] | | | TESTS | | | [...] + + + + + | [facility] | [address] | [place] [address] | | | SERVICES, CORE | PARK [...] [facility] | [address] | [place] [address] | | | SERVICES, CORE | LESLY [...] | | | LABORATORY | | | ALBANIAN | | | SERVICES, | | | [...] + + + + + | [facility] | [address] | [place] [address] | | | SERVICES, CORE | PARK [...] [facility] | [address] | [place], [place] | | | [facility] | [address] | [address] | | | TESTS | | | [...] [facility] | [address] | [place], [place] | | | [facility] | [facility] | [address] | | | TESTS | | | [...] | 60 - 99 mg/dL | [facility] - | | | GLUCOSE, [...] [facility] | [address] | [place], [place] | | | [facility] | [facility] | [address] | | | TESTS | | | [...] AMES | [address] | [place], [place] | | | [facility] | [address] | [address] | | | TESTS | | | [...] [facility] | [address] | [place], [place] | | | [facility] | [facility] | [address] | | | TESTS | | | [...] + + + + + | [facility] | [address] [facility] [address] [address] | [place] [address] | | | SERVICES, CORE | PARK [...] | + + + + + | [facility] | [address] | [place] [address] | | | LYDIA RANGEL | LESLY [...] [facility] | [address] | [place] [address] | | | SERVICES, CORE | PARK [...] | | | LABORATORY | | | ALBANIAN | | | SERVICES, | | | [...] the MDRD equation recommended by the | [facility] | | National Kidney Disease Education Program. [...] + + + + + | [facility] | [address] | [place] [address] | | | LYDIA RANGEL | LESLY [...] [facility] | [address] | [place], [place] | | | [facility] | [address] | [address] | | | TESTS | | | [...] AMES | [address] | [place], [place] | | | [facility] | [address] | [address] | | | TESTS | | | [...] [facility] | [address] | [place] [address] | | | SERVICES, CORE | LESLY [...] [facility] | [address] | [place] [address] | | | LYDIA RANGEL | LESLY [...] | | | LABORATORY | | | ALBANIAN | | | SERVICES, | | | [...] [facility] | [address] | [place] [address] | | | SERVICES, CORE | LESLY [...] [facility] | [address] | [place], [place] | | | [facility] | [address] | [address] | | | TESTS | | | [...] [facility] | [address] | [place], [place] | | | [facility] | [address] | [address] | | | TESTS | | | [...] [facility] | [address] | [place], [place] | | | [facility] | [address] | [address] | | | TESTS | | | [...] [facility] | [address] | [place], [place] | | | [facility] | [address] | [address] | | | TESTS | | | [...] [facility] | [address] | [place] [address] | | | SERVICES, CORE | LESLY [...] CLAIRE, | | | | | | LYDIA | | + +-------+ + + + + + | Specimen | + + | Blood - Blood | | (substance) | + + + + + + + | Performing | Address | City/State/Zipcode | Phone Number | | Organization | | | | + + + + + | [facility] | [address] | [place] [address] | | | LYDIA RANGEL | LESLY [...] - [facility] | [address] | [place], [place] | | | [facility] | [facility] | [address] | | | TESTS | | | [...] | 60 - 99 mg/dL | [facility] - | | | GLUCOSE, [...] [facility] | [address] | [place], [place] | | | [facility] | [facility] | [address] | | | TESTS | | | [...] [facility] | [address] | [place] [address] | | | SERVICES, LYDIA | LESLY [...] + + + + + | [facility] | [address] [facility] [address] | [place] [address] | | | CLAIRE, LYDIA | LESLY [...] [facility] | [address] | [place] [address] | | | SERVICES, CORE | PARK [...] | | | LABORATORY | | | ALBANIAN | | | SERVICES, | | | [...] [facility] | [address] | [place] [address] | | | SERVICES, LYDIA | LESLY [...] [facility] | [address] | [place], [place] | | | [facility] | [facility] | [address] | | | TESTS | | | [...] | 60 - 99 mg/dL | [facility] - | | | GLUCOSE, [...] [facility] | [address] | [place], [place] | | | [facility] | [address] | [address] | | | TESTS | | | [...] + + | Performing | Address | City/State/[facility] | Phone Number | | Organization | | | | + + + + + | [facility] | [address] | [place], [place] | | | [facility] | [facility] | [address] | | | TESTS | | | [...] + | [facility] | [address] | [place], [place] | | | [facility] | [facility] | [address] | | | TESTS | | | [...] [facility] | [address] | [place] [address] | | | SERVICES, CORE | PARK [...] [facility] | [address] | [place] [address] | | | SERVICES, CORE | PARK [...] [facility] | [address] | [place] [address] | | | SERVICES, CORE | PARK [...] | | | LABORATORY | | | ALBANIAN | | | SERVICES, | | | [...] [facility] | [address] | [place] [address] | | | SERVICES, CORE | LESLY [...] [facility] | [address] | [place] [address] | | | SERVICES, CORE | PARK [...] + + | [facility] | [address] | [place] [address] | | | CLAIRE, LYDIA | PARK [...] [facility] | [address] | [place], [place] | | | [facility] | [facility] | [address] | | | TESTS | | | [...] | 60 - 99 mg/dL | [facility] - | | | GLUCOSE, [...] [facility] | [address] | [place], [place] | | | [facility] | [address] | [address] | | | TESTS | | | [...] [facility] | [address] | [place], [place] | | | [facility] | [facility] | [address] | | | TESTS | | | [...] + + + + + | [facility] | [address] | [place] [address] | | | SERVICES, CORE | LESLY [...] [facility] | [address] | [place], [place] | | | [facility] | [address] | [address] | | | TESTS | | | [...] [facility] | [address] | [place] [address] | | | SERVICES, CORE | PARK [...] [facility] | [address] | [place] [address] | | | SERVICES, CORE | LESLY [...] | | | LABORATORY | | | ALBANIAN | | | SERVICES, | | | [...] [facility] | [address] | [place] [address] | | | SERVICES, LYDIA | PARK [...] [facility] | [address] | [place] [address] | | | SERVICES, CORE | LESLY [...] [facility] | [address] | [place], [place] | | | [facility] | [facility] | [address] | | | TESTS | | | [...] + + + + + | [facility] | [address] | [place] [address] | | | SERVICES, CORE | LESLY [...] | 60 - 99 mg/dL | [facility] - | | | GLUCOSE, [...] [facility] | [address] | [place], [place] | | | [facility] | [address] | [address] | | | TESTS | | | [...] [facility] | [address] [facility] [address] | [place] [address] | | | SERVICES, LYDIA | LESLY [...] [facility] | [address] | [place], [place] | | | [facility] | [facility] | [address] | | | TESTS | | | [...] | 60 - 99 mg/dL | [facility] - | | | GLUCOSE, [...] [facility] | [address] | [place], [place] | | | [facility] | [address] | [address] | | | TESTS | | | [...] [facility] | [address] | [place] [address] | | | SERVICES, CORE | PARK [...] [facility] | [address] | [place] [address] | | | SERVICES, CORE | PARK [...] [facility] | [address] | [place] [address] | | | SERVICES, CORE | [address] | | | + + + + + MAGNESIUM, PLASMA (11/15/2015 5:49 AM PDT) + +-------+ + + + | Component | Value | Ref Range | Performed | Pathologist | | | | | At | Signature | + +-------+ + + + | MAGNESIUM,P | 2.2 | 1.8 - 2.5 mg/dL | [facility] | | | LASMA | [...] + + + + + | [facility] | [address] | [place] [address] | | | SERVICES, CORE | PARK [...] | | | LABORATORY | | | ALBANIAN | | | SERVICES, | | | [...] | + + + + + | [facility] | [address] | [place] [address] | | | SERVICES, CORE | [address]ESLY [...] [facility] | [address] | [place], [place] | | | JUST[facility]WN [facility] CARE | [address] | [address] | | | TESTS | | | [...] + + + + + | [facility] | [address] | [place] [address] | | | LYDIA RANGEL | [address] [...] | 60 - 99 mg/dL | [facility] - | | | GLUCOSE, [...] [facility] | [address] | [place], [place] | | | [facility] POINT OF CARE | [address] | [address] | | | TESTS | | | [...] [facility] | [address] | [place], [place] | | | JUSTINE DAWN OF JAKY | [facility] | [address] | | | TESTS | | | [...] + + + + + | [facility] | [address] | [place] [address] | | | SERVICES, [facility] | [address] | | | + [...] [facility] | [address] | [place], [place] | | | [facility] POINT OF CARE | [address] | [address] | | | TESTS | | | [...] [facility] | [address] | [place] [address] | | | SERVICES, CORE | PARK [...] [facility] | [address] | [place] [address] | | | SERVICES, CORE | [address] | | | + + + + + MAGNESIUM, PLASMA (11/14/2015 4:19 AM PDT) + +-------+ + + + | Component | Value | Ref Range | Performed | Pathologist | | | | | At | Signature | + +-------+ + + + | MAGNESIUM,P | 2.4 | 1.8 - 2.5 mg/dL | [facility] [...] [facility] | [address] | [place] [address] | | | SERVICES, CORE | PARK [...] | | | LABORATORY | | | ALBANIAN | | | SERVICES, | | | [...] [facility] | [address] [facility] [address] | [place] [address] | | | SERVICES, LYDIA | [address] [...] [facility] | [address] | [place], [place] | | | [facility] DAWN OF CARE | [facility] | [address] | | | TESTS | | | [...] [facility] | [address] | [place], [place] | | | JUSTINE DAWN OF JAKY | [facility] | [address] | | | TESTS | | | [...] AMES | [address] | [place], [place] | | | [place] POINT OF CARE | [address] | [address] | | | TESTS | | | [...] [facility] | [address] | [place], [place] | | | [facility] | [facility] | [address] | | | TESTS | | | [...] + + + + + | [facility] | [id number] | [place] [address] | | | SERVICES, CORE | PARK [...] [facility] | [address] [facility] [address] | [place] [address] | | | SERVICES, CORE | [address] [...] [facility] | [address] | [place] [address] | | | LYDIA RANGEL | [address]ES[address] [...] [facility] | [address] | [place] [address] | | | SERVICES, CORE | [address] [...] [facility] | [address] | [place] [address] | | | SERVICES, CORE | PARK [...] | | | LABORATORY | | | ALBANIAN | | | SERVICES, | | | [...] the MDRD equation recommended by the | [facility] | | National Kidney Disease [...] + + + + + | [facility] | [address] | [place] [address] | | | SERVICES, CORE | [address] | | | + + + + + MAGNESIUM, PLASMA (11/12/2015 11:47 PM PDT) + +-------+ + + + | Component | Value | Ref Range | Performed | Pathologist | | | | | At | Signature | + +-------+ + + + | MAGNESIUM,P | 2.3 | 1.8 - 2.5 mg/dL | [facility] | | | LASMA | [...] [facility] | [address] | [place] [address] | | | SERVICES, CORE | PARK [...] | | | LABORATORY | | | ALBANIAN | | | SERVICES, | | | [...] the MDRD equation recommended by the | [facility] | | National Kidney Disease [...] [facility] | [address] | [place] [address] | | | LYDIA RANGEL | LESLY [...] | 60 - 99 mg/dL | [facility] - | | | GLUCOSE, [...] [facility] | [address] | [place], [place] | | | [facility] POINT OF CARE | [address] | [address] | | | TESTS | | | [...] AM[facility] | [address] | [place], [place] | | | [facility] | [address] | [address] | | | TESTS | | | [...] [facility] | [address] | [place], [place] | | | JUSTINE DAWN OF CARE | [facility] | [address] | | | TESTS | | | [...] | 60 - 99 mg/dL | [facility] - | | | GLUCOSE, [...] [facility] | [address] | [place], [place] | | | [facility] POINT OF CARE | [address] | [address] | | | TESTS | | | [...] + + + + + | [facility] | [id number] | [place] [address] | | | SERVICES, CORE | [address]ES[address] [...] [facility] | [address] | [place] [address] | | | SERVICES, CORE | [address]ESLY [...] + | [facility] | [address] | [place] [address] | | | SERVICES, CORE | PARK [...] | | | LABORATORY | | | ALBANIAN | | | SERVICES, | | | [...] + + + + + | [facility] | [id number] [facility] [address] | [place] [address] | | | LYDIA RANGEL | LESLY [...] - [facility] | [address] | [place], [place] | | | [facility] | [address] | [address] | | | TESTS | | | [...] [facility] | [address] | [place] [address] | | | SERVICES, CORE | PARK [...] + + | [facility] | [address] [facility] [address] | [place] [address] | | | SERVICES, CORE | PARK [...] [facility] | [address] | [place] [address] | | | SERVICES, CORE | LESLY [...] + + + + + | [facility] | [address] | [place] [address] | | | SERVICES, CORE | [address]ES[address] [...] | 60 - 99 mg/dL | [facility] - | | | GLUCOSE, [...] [facility] | [address] | [place], [place] | | | [facility]WN [facility] CARE | [address] | [address] | | | TESTS | | | [...] [facility] | [address] | [place] | | | [facility] POINT OF CARE | [address] | [address] | | | TESTS | | | [...] [facility] | [address] | [place] [address] | | | CLAIRE, LYDIA | [address] [...] | 60 - 99 mg/dL | [facility] - | | | GLUCOSE, [...] [facility] | [address] | [place], [place] | | | [facility] POINT OF CARE | [address] | [address] | | | TESTS | | | [...] | + + + + + | [facility] | [address] | [place] [address] | | | SERVICES, CORE | LESLY [...] [facility] | [address] | [place] [address] | | | SERVICES, CORE | [address]ES[address] [...] [facility] | [address] | [place] [address] | | | SERVICES, CORE | PARK [...] | | | LABORATORY | | | ALBANIAN | | | SERVICES, | | | [...] + + + + + | [facility] | [id number] [facility] [address] | [place] [address] | | | LYDIA RANGEL | LESLY [...] [facility] | [address] | [place], [place] | | | [facility] | [address] | [address] | | | TESTS | | | [...] + + + + + | [facility] | [address] | [place] [address] | | | SERVICES, CORE | PARK [...] | 60 - 99 mg/dL | [facility] - | | | GLUCOSE, [...] + | [facility] | [address] | [place], [place] | | | JUST[facility] DAWN OF [facility]Y | [facility] | [address] | | | TESTS | | | [...] [facility] | [address] | [place], [place] | | | [facility] | [address] | [address] | | | TESTS | | | [...] + + + + + | [facility] | [address] | [place] [address] | | | SERVICES, CORE | LESLY [...] | 60 - 99 mg/dL | [facility] - | | | GLUCOSE, [...] [facility] | [address] | [place], [place] | | | [facility] | [address] | [address] | | | TESTS | | | [...] | + + + + + | [facility] | [address] | [place] [address] | | | LYDIA RANGEL | LESLY [...] + + + + + | [facility] | [address] | [place] [address] | | | LYDIA RANGEL | LESLY [...] [facility] | [address] | [place] [address] | | | SERVICES, CORE | PARK [...] | | | LABORATORY | | | ALBANIAN | | | SERVICES, | | | [...] the MDRD equation recommended by the | [facility] | | National Kidney Disease Education Program. [...] + + + + + | [facility] | [address] [facility] [address] | [place] [address] | | | LYDIA RANGEL | LESLY [...] [facility] | [address] | [place] [address] | | | SERVICES, CORE | PARK [...] + + + + + | [facility] | [id number] | [place] [address] | | | SERVICES, CORE | LESLY [...] [facility] | [address] | [place], [place] | | | JUST[facility] DAWN OF CARE | [address] | [address] | | | TESTS | | | [...] N[facility]CHI AMES | [address] | [place], [place] | | | L[place] POINT OF CARE | [address] | [address] | | | TESTS | | | | + + + + + X-RAY PORTABLE CHEST PICC LINE CHECK (11/09/2015 3:12 PM PDT) + + + + + + | Component | Value | Ref Range | Performed | Pathologist | | | | | At | Signature | + + + + + + | XRAY | EXAM: PA CHEST PICC LINE | | | | [...] Anasarca A41.9 Sepsis, due to unspecified organism ([facility]) I50.9 Heart | | | failure, unspecified ([facility]) I82.402 DVT (deep venous thrombosis), | | | left ([facility]) PICC/Midline Insertion Procedure Note | | | Indications:Frequent lab draws and Administration IV fluids and meds | | | Procedure location: Unit:[facility] Room: 13 Providers: PICC Nurse | | [...] | pause verifies correct patient, procedure, equipment, applications support analyst | | | and site/side marked as [...] | area Cephalic vein. Catheter lot number: [id number] with a length of | | | [...] [facility] | [address] | [place], [place] | | | [facility] | [facility] | [address] | | | TESTS | | | [...] | + + + + + | [facility] | [address] | [place] [address] | | | SERVICES, CORE | LESLY [...] [facility] | [address] | [place], [place] | | | [facility] CARE | [address] | [address] | | | TESTS | | | [...] [facility] | [address] | [place] [address] | | | SERVICES, CORE | [address] | | | + + + + + INR (11/09/2015 6:19 AM PDT) + +-------+ + + + | Component | Value | Ref Range | Performed | Pathologist | | | | | At | Signature | + +-------+ + + + | INR | 1.20 | 0.90 - 1.20 INR | [facility] | | | | | | LABORATORY [...] | + + + + + | [facility] | [address] | [place] [address] | | | SERVICES, CORE | PARK [...] [facility] | [address] | [place] [address] | | | SERVICES, CORE | [address]ES[address] [...] | | | LABORATORY | | | ALBANIAN | | | SERVICES, | | | [...] + + + + + | [facility] | [address] | [place] [address] | | | SERVICES, CORE | [address]ES[address] [...] | 60 - 99 mg/dL | [facility] - | | | GLUCOSE, [...] [facility] | [address] | [place], [place] | | | [facility] | [address] | [address] | | | TESTS | | | [...] [facility] | [address] | [place], [place] | | | [facility] DAWN OF CARE | [address] | [address] | | | TESTS | | | [...] [facility] | [address] | [place] [address] | | | SERVICES, CORE [...] [facility] | [address] | [place] [address] | | | SERVICES, CORE | PARK [...] + + + + + | [facility] | [address] | [place] [address] | | | LYDIA RANGEL | LESLY [...] | 60 - 99 mg/dL | [facility] - | | | GLUCOSE, [...] [facility] | [address] | [place], [place] | | | [facility] | [address] | [address] | | | TESTS | | | [...] AM[facility] | [address] | [place], [place] | | | JUSTINE DAWN OF JAKY | [facility] | [address] | | | TESTS | | | | + + + + + CAPILLARY BLOOD GLUCOSE (NO CHG) POC (11/08/2015 8:54 AM PDT) + +---------+ [...] | [facility] | [address] | [place], [place] | | | [facility] | [facility] | [address] | | | TESTS | | | [...] [facility] | [address] | [place] [address] | | | SERVICES, CORE | PARK [...] + + + + + | [facility] | [id number] | [place] [address] | | | SERVICES, CORE | LESLY [...] [facility] | [address] | [place] [address] | | | SERVICES, CORE | [address] | | | + + + + + INR (11/08/2015 6:27 AM PDT) + +-------+ + + + | Component | Value | Ref Range | Performed | Pathologist | | | | | At | Signature | + +-------+ + + + | INR | 1.20 | 0.90 - 1.20 INR | [facility] | | | | | | LABORATORY [...] + + + + + | [facility] | [address] | [place] [address] | | | SERVICES, CORE | [address] | | | + + + + + MAGNESIUM, PLASMA (11/08/2015 6:27 AM PDT) + +-------+ + + + | Component | Value | Ref Range | Performed | Pathologist | | | | | At | Signature | + +-------+ + + + | MAGNESIUM,P | 2.1 | 1.8 - 2.5 mg/dL | [facility] | | | LASMA | | | [...] [facility] | [address] [facility] [address] | [place] [address] | | | SERVICES, CORE | [address]ES[address] [...] | | | LABORATORY | | | ALBANIAN | | | SERVICES, | | | [...] [facility] | [address] | [place] [address] | | | SERVICES, CORE | PARK [...] + + + + + | [facility] | [address] | [place] [address] | | | SERVICES, CORE | [address]ES[address] [...] [facility] | [address] | [place], [place] | | | [facility] | [facility] | [address] | | | TESTS | | | [...] + + + + + | [facility] | [address] | [place] [address] | | | SERVICES, LYDIA | [address]ESLY [...] [facility] | [address] | [place], [place] | | | [facility] POINT OF CARE | [address] | [address] | | | TESTS | | | [...] [facility] | [address] | [place], [place] | | | [facility] POINT OF CARE | [address] | [address] | | | TESTS | | | [...] | [facility] | [address] | [place], [place] | | | CARDIOLOGY | [address] | [address] | | + + + + + [...] [facility] | [address] | [place], [place] | | | HILL, POINT OF CARE | [facility] | [address] | | | TESTS | | | [...] | | | LABORATORY | | | ALBANIAN | | | SERVICES, | | | [...] + + + + + | [facility] | [id number] | [place] [address] | | | SERVICES, LYDIA | [address]ES[address] [...] + + + + + | [facility] | [address] | [place] [address] | | | SERVICES, LYDIA | [address] [...] Dalteparin, LMWH: 0.70 - 1.20 U/mL | CLAIRE, CORE | | Tinzaparin, LMWH: Therapeutic range [...] | [facility] | [address] | [place] [address] | | | LYDIA RANGEL | [address]ESLY [...] | | | | | rylie / PRISCILLA | | | | | [...] [facility] | [address] | [place], [place] | | | JUSTINE DAWN OF CARE | [facility] | [address] | | | TESTS | | | [...] | + +---------+ + + + | NON-ADAN | Lewis (A) | None /hpf | [facility] | [...] [facility] | [address] | [place] [address] | | | SERVICES, CORE | PARK [...] [facility] | [address] | [place] [address] | | | SERVICES, CORE | LESLY [...] [facility] | [address] | [place] [address] | | | SERVICES, CORE | PARK [...] + + + + + | [facility] | [address] | [place] [address] | | | SERVICES, CORE | LESLY [...] [facility] | [address] | [place], [place] | | | [facility] | [address] | [address] | | | TESTS | | | [...] + + | [facility] | [address] [facility] [address] | [place] [address] | | | SERVICES, CORE | LESLY [...] + + + + + | [facility] | [address] | [place] [address] | | | SERVICES, CORE | [address]ES[address] [...] + + + + + | [facility] | [address] | [place] [address] | | | SERVICES, CORE | PARK [...] | | | LABORATORY | | | ALBANIAN | | | SERVICES, | | | [...] [facility] | [address] | [place] [address] | | | SERVICES, CORE | PARK [...] ED | | | | | | 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 | [place], [place] | | | [facility]WN OF CARE | [address] | [address] | | | TESTS | | | [...] | | | TEMP | | | [facility] | | | | | | JUSTINE [...] AMES | [address] | [place], [place] | | | [facility] | [address] | [address] | | | TESTS | | | [...] + + + + + | [facility] | [address] | [place] [address] | | | SERVICES, CORE | [address] | | | + + + + + 12 LEAD ECG (11/06/2015 1:37 PM PDT) + + + + + + | Component | Value | Ref Range | Performed | Pathologist | | | | | At | Signature | + + + + + + | VENTRICULAR | 117 | bpm | [facility] | | | RATE | | [...] + + + + | QTC-BAZETT | 441 | ms | [facility] [...] DEPT OF | [address] | [place], [place] | | | CARDIOLOGY | [facility] | [address] | | + + + + + [...] + + + + + | [facility] | [address] | [place] [address] | | | SERVICES, CORE | PARK [...] [facility] | [address] [facility] [address] | [place] [address] | | | SERVICES, CORE | [address]ES[address] [...] | | | LABORATORY | | | ALBANIAN | | | SERVICES, | | | [...] + + + + + | [facility] | [address] | [place] [address] | | | SERVICES, CORE | PARK [...] [facility] | [address] | [place] [address] | | | SERVICES, CORE | [address] | | | + + + + + ED INFORMATION EXCHANGE (11/06/2015 1:26 PM PDT) + + + + + + | Component | Value | Ref Range | Performed | Pathologist | | | | | At | Signature | + + + + + + | [facility] | [id number] | | [facility] | | | | [id number] | | MEDICAL | | | | [...] | ---- 11/06/2015 | | | 13:25 [facility] Emergency | | | [id number]. Referral; Cellulitis 09/28/2015 15:39 [facility] | | | Hospital Emergency [...] -Pain in left lower leg 09/13/2015 14:54 [facility] | | | Hospital Emergency [...] | | | | | | -Other prison (current) | | | drug therapy | | | -Allergy status | | | to penicillin ED VISIT COUNT (1 YR.) Visits Location | | | ------ --------- 1 [facility] | | | [place] 9 [facility] 10 | | | Total Note: Visits indicate total known visits. | | | | | | --- | | + + + + + + + + | Performing | Address | City/State/Zipcode | Phone Number | | Organization | | | | + + + + + | [facility] | [address] | [place], [place] | [phone] | | [employer] | [address] | [address] | | + + + + + [...] | | vein | + + | AMAAR (obstructive sleep apnea) Obstructive sleep apnea (adult) [...] | | | | | 1 dose, [facility] 11/06/15 at 2230 | | PM PDT [...] | | | oral, ONCE, 1 dose, [facility] 11/08/15 | | PM PDT | | [...] | | | | ONCE, 1 dose, [facility] 11/08/15 at 1900 | | PM PDT [...]
--- OUTSIDE RECORDS SUMMARY | ~2020-02-27 | XMS | Encounter Summary ---
Demographics + + + | Address | [address] | | | [place] [address] | + + + | Home Phone [...] [place], [place] | | | | | [address] | | + + + + + | Ellie Vang | ECON | Unknown | | + + + + + Care Team Providers + +------+ + | Care Clinical Psychologist Private Practice Name | Role | [...] | [facility] | | | with [facility]PRENT[facility] | | hypertension | [address] | | | | | Right | [address] | [address] | | | | | heart | [facility] [place] | Center for | | | | | failure | [address] | Health and | | | | | ([facility]) Type | Phone: | Healing, | | | | | 2 diabetes | [phone] | [address] | | | | | mellitus | Fax: | [place], [place] | | | | | without | [phone] | [address] | | | | | complication | | Phone: | | | | | , with | | | | | | | long-term | | Fax: | | | | | current use | | [phone] | | | | | of insulin [...] | | 2 diabetes | JEAN, | [place], [place] | | | | | mellitus | [place] [address] | [address] | | | | | without | Phone: | Phone: | | | | | complication | [phone] | [phone] | | | | | (HCC) | Fax: | Fax: | | | | | Procedures | [phone] | [phone] | | | | | [place] EST | | | | | | [...] | 2017 | Visit | Preventive at [facility] | MD [address] | hypertension | | | | [address] | [place], [place] | (Primary Dx); Right | | | | [facility] | [address] | heart failure (HCC); | | | | and Healing, | [phone] | Type 2 diabetes | | | | [address] | | mellitus without | | | | [place], [place] | | complication, with | | | | [address] | | long-term current | | | | [phone] | | use of insulin (HCC) | [...] 81 mg by mouth once daily. CALCIUM [id number]-GENIS ORAL Take 2 tablets by mouth two [...] then she has worked closely with her [facility] doctor and has been been able to [...] 12 CREATININE PLASMA (LAB) 0.79 EGFR - [place] >60 EGFR NON -[place] >60 GLUCOSE, PLASMA (LAB) 170 (H) CALCIUM, [...] Flannery | | | | | | [place], [place] | | | | | | [address] | | | | | | [phone] | | | | | | | | +--------+ + + + + | 04/04/ | Telephone-S | Surgery | Orquidea Cristobal, | | | 2019 | cheduhipolito | | INTEGRATION CONSULTANT [address] | | | | | | [place], [place] | | | | | | [address] | | | | | | [phone] | | | | | | | [...] [facility] | [address] | [place] [address] | | | LYDIA RANGEL | CLARENCE [...] HOSPITAL [facility] | [address] | [place], [place] | | | SERVICES, LIPID | [address] | [address] | | + + + + + [...] glycated albumin should be considered for 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 | [place] [address] | | | SERVICES, SPECIAL | PARK [...] | LABORATORY | | | [place] | | | SERVICES, | | | [...] | + + + + + | [facility] | [address] | [place] [address] | | | SERVICES, CORE | CLARENCE [...]
--- OUTSIDE RECORDS SUMMARY | ~2020-02-27 | XMS | Encounter Summary ---
Demographics + + + | Address | [address] | | | [place] [address] | + + + | Home Phone [...] + | Katalina Padilla | ECON | [address] | | | | | [place], [place] | | | | | [address] | | + + + + + | Ellie Vang | ECON | Unknown | | + + + + + Care Team Providers + +------+ + | Care Ceiling Installer Name | Role | Phone | [...] | | | | | | [place], [place] | | | | | | [address] | | | | | | [phone] | | | +--------+ + + + [...] Flannery | | | | | | [place], [place] | | | | | | [address] | | | | | | [phone] | | | | | | | | +--------+ + + + + | 04/04/ | Telephone-S | Surgery | Orquidea Cristobal, | | | 2020 | sherrill | | DEVELOPMENT ANALYST [address] | | | | | | [place] | | | | | | [address] | | | | | | [phone] | | | | | | | | +--------+ + + + + documented as of this encounter Visit Diagnoses Not on filedocumented in this encounter"
--- OUTSIDE RECORDS SUMMARY | ~2020-02-27 | XMS | Encounter Summary ---
Demographics + + + | Address | [address] | | | [place] [address] | + + + | Home Phone [...] Team Providers + +------+ + | Care Rod Puller Name | Role | Phone | + +------+ + PCP | Unavailable | + +------+ + Encounter Details +--------+ + + + + | Date | Type | Department | Care Team | Description | +--------+ + + + + | 10/07/ | Orders Only | [facility] | Conversion | | | 2018 | | NEPHROLOGY [place] | Transaction, | | | | | [address] | Provider Unknown | | | | | [address] [place], [place] | | | | | | [address] | (Fax) | | | | | [phone] | | | +--------+ + + + [...] D | | | | | | [place] [address] | | | | | | [phone] | | | | | | | | +--------+ + + + + | 03/29/ | Office | Cardiology | Sulema Altamirano | | | 2019 | Visit | | [address] | | | | | | [address] | | | | | | [place] [address] | | | | | | [phone] | | | | | | | [...]
--- OUTSIDE RECORDS SUMMARY | ~2020-02-27 | XMS | Encounter Summary ---
Demographics + + + | Address | [address] | | | [place] [address] | + + + | Home Phone [...] [place], [place] | | | | | [address] | | + + + + + | Ellie Vang | ECON | Unknown | | + + + + + Care Team Providers + +------+ + | Care Shipping Technician Name | Role | Phone | [...] | | | | | | [address] [place], [place] | | | | | | [address] | | | | | | [phone] | | | +--------+ + + + [...] Ave | | | | | | [place], [place] | | | | | | [address] | | | | | | [phone] | | | | | | | | +--------+ + + + + | 04/04/ | Telephone-S | Surgery | Orquidea Cristobal, | | | 2019 | sherrill | | BLOOD BANK CALENDAR CONTROL CLERK [address] | | | | | | [place], [place] | | | | | | [address] | | | | | | [phone] | | | | | | | | +--------+ + + + + documented as of this encounter Visit Diagnoses Not on filedocumented in this encounter"
--- OUTSIDE RECORDS SUMMARY | ~2020-02-27 | XMS | Encounter Summary ---
Demographics + + + | Address | [address] | | | [place] [address] | + + + | Home Phone [...] [place], [place] | | | | | [address] | | + + + + + | Ellie Vang | ECON | Unknown | | + + + + + Care Team Providers + +------+ + | Care Otolaryngologist Name | Role | Phone | + +------+ + | Fadi Goodrich DO | PCP | | + +------+ + Encounter Details +--------+---------+ + + + | Date | Type | Department | Care Team | Description | +--------+---------+ + + + | 01/11/ | Office | Digestive Health | | Morbid obesity (HCC) | | 2018 | Visit | Center at [facility] [address] | | (Primary Dx) | | | | [facility] | | | | | | for Health and | | | | | | Healing, [address] | | | | | | [place], [place] | | | | | | [address] | | | | | | [phone] | | | +--------+---------+ + + + [...] of Class: 1055 until 1155 (60 minutes kvou-qp-msks with patient) Teaching Methods: PowerPoint and verbal [...] a journal with fluid/protein d. Transportation 7. [facility] 8. Surgical [...] Ave | | | | | | [place], [place] | | | | | | [address] | | | | | | [phone] | | | | | | | | +--------+ + + + + | 04/04/ | Telephone-S | Surgery | Orquidea Cristobal, | | | 2019 | cheduled | | PEARL CUTTER [address] | | | | | | [place], [place] | | | | | | [address] | | | | | | [phone] | | | | | | | | +--------+ + + + + documented as of this encounter Visit Diagnoses + + | Diagnosis | + + | Morbid obesity (HCC) - Primary Morbid obesity | + + documented in this encounter"
--- OUTSIDE RECORDS SUMMARY | ~2020-02-27 | XMS | Encounter Summary ---
Demographics + + + | Address | [address] | | | [place] [address] | + + + | Home Phone [...] [place], [place] | | | | | [address] | | + + + + + | Ellie Vang | ECON | Unknown | | + + + + + Care Team Providers + +------+ + | Care Auger Machine Offbearer Name | Role | Phone | + [...] [address] | | | | | [facility] | [facility] | | | | | [address] | [place], [place] | | | | | [facility] | [address] | | | | | and Healing, | [phone] | | | | | [address] | | | | | | [place], [place] | | | | | | [address] | | | | | | [phone] | | | +--------+ + + + [...] [address] | | | | | | [place], [place] | | | | | | [address] | | | | | | [phone] | | | | | | | | +--------+ + + + + | 04/04/ | Telephone-S | Surgery | Orquidea Cristobal, | | | 2020 | cheduled | | BODY MAKER [address] | | | | | | [place] | | | | | | [address] | | | | | | [phone] | | | | | | | | +--------+ + + + + documented as of this encounter Visit Diagnoses Not on filedocumented in this encounter"
--- OUTSIDE RECORDS SUMMARY | ~2020-02-27 | XMS | Encounter Summary ---
Demographics + + + | Address | [address] | | | [place] [address] | + + + | Home Phone [...] [place], [place] | | | | | [address] | | + + + + + | Ellie Vang | ECON | Unknown | | + + + + + Care Team Providers + +------+ + | Care Plant Maintenance Technician Name | Role | Phone | + +------+ + | Kenyatta Cardenas MD | PCP | | + +------+ + Encounter Details +--------+ + + + + | Date | Type | Department | Care Team | Description | +--------+ + + + + | 01/26/ | Abstract | Cardiology | Branden Gutiérrez MD | | | 2019 | | Preventive at [facility] | [address] | | | | | [address] | [place], [place] | | | | | [facility] | [address] | | | | | and [place], | [phone] | | | | | [address] | | | | | | [place], [place] | | | | | | [address] | | | | | | [phone] | | | +--------+ + + + [...] [address] | | | | | | [place], [place] | | | | | | [address] | | | | | | [phone] | | | | | | | | +--------+ + + + + | 04/04/ | Telephone-S | Surgery | Orquidea Cristobal, | | | 2020 | sherrill | | SEAFOOD TEAM MEMBER [address] | | | | | | [place] | | | | | | [address] | | | | | | [phone] | | | | | | | | +--------+ + + + + documented as of this encounter Visit Diagnoses Not on filedocumented in this encounter"
--- OUTSIDE RECORDS SUMMARY | ~2020-02-27 | XMS | Encounter Summary ---
Demographics + + + | Address | [address] | | | [place] [address] | + + + | Home Phone [...] [place], [place] | | | | | [address] | | + + + + + | Ellie Vang | ECON | Unknown | | + + + + + Care Team Providers + +------+ + | Care Assistant Federal Public Defender Name | Role | Phone | + [...] | 2015 | Visit | Center at [facility] [address] | [address] [facility] | (Primary Dx); | | | | [address] [place] | [address] | 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for [facility] and | [place], [place] | with insulin therapy | | | | [place] [address] | [address] | (HCC) | | | | [place], [place] | [phone] | | | | | [address] | | | | | | [phone] | | | +--------+---------+ + + + [...] of Visit: 1:30 to 1:55 (25 minutes snsj-hu-zyyv with patient). Pt seen tog ether with Rossana Espinoza RD (training) SUBJECTIVE: Working with RN to get access to [employer] water exercises. States she was down to 374lbs by following LRD but with complications (n/v, fainting) - need to obtain records from PCP [facility]. Food Allergies: No Current Physical Activity: Nothing - plans to start swimming this week Diet Recall Stockham (100kcal) + Activia Light - 60kcal Atkins [...] post-surgery diet progression. 4. Call or send [employer] message to dietitian with any questions. Contact information was provided. Follow up with dietitian via telephone 1 week after beginning water exercises for weight ch addie. Yuli Childs RD, [facility], [place] Pager# [phone] Rossana Espinoza MS, RD Pgr #[phone] documented in this enco unter Plan of Treatment +--------+ + + + + | Date | Type | Specialty | Care Team | Description | +--------+ + + + + | 03/22/ | Office | Cardiology | Randell Franks, | | | 2019 | Visit | | MD [address] | | | | | | [place], [place] | | | | | | [address] | | | | | | [phone] | | | | | | | | +--------+ + + + + | 04/04/ | Telephone-S | Surgery | Orquidea Cristobal, | | | 2019 | cheduled | | SEXUAL ASSAULT SOCIAL WORKER [address] | | | | | | [place], [place] | | | | | | [address] | | | | | | [phone] | | | | | | | | +--------+ + + + + documented as of this encounter Procedures + +--------+ + + + | Procedure Name | Priori | Date/Time | Associated Diagnosis | Comments | | | ty | | | | + +--------+ + + + | IN MNT RE-ASSESSMNT | Routin | 12/27/2014 | [...]
--- OUTSIDE RECORDS SUMMARY | ~2020-02-27 | XMS | Encounter Summary ---
Demographics + + + | Address | [address] | | | [place] [address] | + + + | Home Phone [...] [place], [place] | | | | | [address] | | + + + + + | Ellie Vang | ECON | Unknown | | + + + + + Care Team Providers + +------+ + | Care Hospice Coordinator Name | Role | Phone | + +------+ + | Kenyatta Cardenas MD | PCP | | + +------+ + Encounter Details +--------+ + + + + | Date | Type | Department | Care Team | Description | +--------+ + + + + | 05/28/ | Phillip | NKECHI DUMAS at [facility] | Lab, Gi Procedure | | | 2018 | on | [place] [address] | | | | | [address] [facility] for | | | | | | Health and Healing, | | | | | | [address] | | | | | | [place], [place] | | | | | | [address] | | | | | | [phone] | | | +--------+ + + + [...] [address] | | | | | | [place], [place] | | | | | | [address] | | | | | | [phone] | | | | | | | | +--------+ + + + + | 04/04/ | Telephone-S | Surgery | Orquidea Cristobal, | | | 2019 | sherrill | | TYPING OFFICE WORKER [address] | | | | | | [place], [place] | | | | | | [address] | | | | | | [phone] | | | | | | | | +--------+ + + + + documented as of this encounter Visit Diagnoses Not on filedocumented in this encounter"
--- OUTSIDE RECORDS SUMMARY | ~2020-02-27 | XMS | Encounter Summary ---
Demographics + + + | Address | [address] | | | [place] [address] | + + + | Home Phone [...] [place], [place] | | | | | [address] | | + + + + + | Ellie Vang | ECON | Unknown | | + + + + + Care Team Providers + +------+ + | Care Bow Tacker Name | Role | Phone | + [...] Ave | | | | | | [place], [place] | | | | | | [address] | | | | | | [phone] | | | | | | | | +--------+ + + + + | 04/04/ | Telephone-S | Surgery | Orquidea Cristobal, | | | 2019 | cheduled | | FORGE HEATER [address] | | | | | | [place], [place] | | | | | | [address] | | | | | | [phone] | | | | | | | | +--------+ + + + + documented as of this encounter Visit Diagnoses Not on filedocumented in this encounter"
--- OUTSIDE RECORDS SUMMARY | ~2020-02-27 | XMS | Encounter Summary ---
Demographics + + + | Address | [address] | | | [place] [address] | + + + | Home Phone [...] [place], [place] | | | | | [address] | | + + + + + | Ellie Vang | ECON | Unknown | | + + + + + Care Team Providers + +------+ + | Care Engineering Consultant Name | Role | Phone | [...] [address] | | | | | [facility] | [facility] | | | | | [address] | [place], [place] | | | | | [facility] | [address] | | | | | and Healing, | [phone] | | | | | [address] | | | | | | [place], [place] | | | | | | [address] | | | | | | [phone] | | | +--------+ + + + [...] [address] | | | | | | [place], [place] | | | | | | [address] | | | | | | [phone] | | | | | | | | +--------+ + + + + | 04/04/ | Telephone-S | Surgery | Orquidea Cristobal, | | | 2020 | cheduled | | MAT MAKING MACHINE TENDER [address] | | | | | | [place] | | | | | | [address] | | | | | | [phone] | | | | | | | | +--------+ + + + + documented as of this encounter Visit Diagnoses Not on filedocumented in this encounter"
--- OUTSIDE RECORDS SUMMARY | ~2020-02-27 | XMS | Encounter Summary ---
Demographics + + + | Address | [address] | | | [place] [address] | + + + | Home Phone [...] [place], [place] | | | | | [address] | | + + + + + | Ellie Vang | ECON | Unknown | | + + + + + Care Team Providers + +------+ + | Care Census Enumerator Name | Role | Phone | + [...] [address] | | | | | [place] at | [place], [place] | | | | | [place] [address] | [address] | | | | | [facility] | [phone] | | | | | [facility] | | | | | | [place], [place] | | | | | | [address] | | | | | | [phone] | | | +--------+--------+ + + + [...] [address] | | | | | | [place], [place] | | | | | | [address] | | | | | | [phone] | | | | | | | | +--------+ + + + + | 04/04/ | Telephone-S | Surgery | Orquidea Cristobal, | | | 2019 | cheduled | | STEAMBOAT INSPECTOR [address] | | | | | | [place], [place] | | | | | | [address] | | | | | | [phone] | | | | | | | | +--------+ + + + + documented as of this encounter Visit Diagnoses Not on filedocumented in this encounter"
--- OUTSIDE RECORDS SUMMARY | ~2020-02-27 | XMS | Encounter Summary ---
Demographics + + + | Address | [address] | | | [place] [address] | + + + | Home Phone [...] + | Katalina Padilla | ECON | [address] | | | | | [place], [place] | | | | | [address] | | + + + + + | Ellie Vang | ECON | Unknown | | + + + + + Care Team Providers + +------+ + | Care Fruit Ii Farmworker Name | Role | Phone | + [...] | | | [address] | [place], [place] | | | | | [address] | [address] | | | | | [address], | [phone] | | | | | [address] [facility], | | | | | | [place] [address] | | | | | | [phone] | | | +--------+ + + + [...] [address] | | | | | | [place], [place] | | | | | | [address] | | | | | | [phone] | | | | | | | | +--------+ + + + + | 04/04/ | Telephone-S | Surgery | Orquidea Cristobal, | | | 2019 | cheduled | | SHEAR ASSEMBLER [address] | | | | | | [place], [place] | | | | | | [address] | | | | | | [phone] | | | | | | | | +--------+ + + + + documented as of this encounter Visit Diagnoses Not on filedocumented in this encounter"
--- OUTSIDE RECORDS SUMMARY | ~2020-02-27 | XMS | Encounter Summary ---
Demographics + + + | Address | [address] | | | [place] [address] | + + + | Home Phone [...] + | Katalina Padilla | ECON | [address] | | | | | [place], [place] | | | | | [address] | | + + + + + | Ellie Vang | ECON | Unknown | | + + + + + Care Team Providers + +------+ + | Care Pool Table Mechanic Name | Role | Phone | [...] Preventive at [facility] | MD [address] | | | | | [address] | [place], [place] | | | | | [facility] | [address] | | | | | and [address] | [phone] | | | | | [place] [address] | | | | | | [place], [place] | | | | | | [address] | | | | | | [phone] | | | +--------+ + + + [...] | | | | | | [place], [place] | | | | | | [address] | | | | | | [phone] | | | | | | | | +--------+ + + + + | 04/04/ | Telephone-S | Surgery | Orquidea Cristobal, | | | 2020 | sherrill | | ANIMAL HUMANE AGENT SUPERVISOR [address] | | | | | | [place] | | | | | | [address] | | | | | | [phone] | | | | | | | | +--------+ + + + + documented as of this encounter Visit Diagnoses Not on filedocumented in this encounter"
--- OUTSIDE RECORDS SUMMARY | ~2020-02-27 | XMS | Encounter Summary ---
Demographics + + + | Address | [address] | | | [place] [address] | + + + | Home Phone [...] [place], [place] | | | | | [address] | | + + + + + | Ellie Vang | ECON | Unknown | | + + + + + Care Team Providers + +------+ + | Care Receiver Stocker Name | Role | Phone | + [...] | | | | | obesity | [place], [place] | | | | | | ([facility]) | [address] | | | | | | Procedures | Phone: | | | | | | PHYSICAL | | | | | | | THERAPY | Fax: | | | | | | REFERRAL | [phone] | | +--------+--------+ + + + + Encounter Details +--------+ + + + + | Date | Type | Department | Care Team | Description | +--------+ + + + + | 06/22/ | Ranch Supervisor | Digestive Health | Ion Pandey, | Pre-op evaluation | | 2016 | | Center at [facility] [address] | [address] | (Primary Dx); Morbid | | | | [address] | [facility] [place] | obesity (HCC) | | | | for Health and | [address] | | | | | Healing, [address] | | | | | | [place], [place] | | | | | | [address] | | | | | | [phone] | | | +--------+ + + + [...] Ave | | | | | | [place], [place] | | | | | | [address] | | | | | | [phone] | | | | | | | | +--------+ + + + + | 04/04/ | Telephone-S | Surgery | Orquidea Cristobal, | | | 2019 | cheduled | | CLINICAL INFORMATICS DIRECTOR [address] | | | | | | [facility], [place] | | | | | | [address] | | | | | | [phone] | | | | | | | | +--------+ + + + + documented as of this encounter Visit Diagnoses + + | Diagnosis | + + | Pre-op evaluation - Primary Preoperative examination, unspecified | + + | Morbid obesity (HCC) Morbid obesity | + + documented in this encounter"
--- OUTSIDE RECORDS SUMMARY | ~2020-02-27 | XMS | Encounter Summary ---
Demographics + + + | Address | [address] | | | [place] [address] | + + + | Home Phone [...] [place], [place] | | | | | [address] | | + + + + + | Ellie Vang | ECON | Unknown | | + + + + + Care Team Providers + +------+ + | Care Middle School Technology Teacher Name | Role | Phone [...] | BROCK Roldan | | | with CONVENTIONAL UNDERWRITER | | hypertension | [address] | | | | | Right | [address] | [place] | | | | | heart | [place], [place] | [place], | | | | | failure | [address] | [place] | | | | | ([facility]) Type | Phone: | [address] | | | | | 2 diabetes | [phone] | Phone: | | | | | mellitus | Fax: | [phone] | | | | | without | [phone] | Fax: | | | | | complication | | [phone] | | | | | , with | | | | | | | long-term | | | | | | | current use | | | | | | | of insulin | | | | | | | ([facility]) | | | +--------+ + + + + + Encounter Details +--------+---------+ + + + | Date | Type | Department | Care Team | Description | +--------+---------+ + + + | 04/01/ | Office | Digestive Health | Dione Andre, | History of [place] | | 2018 | Visit | Center at [facility] [address] | [address] [facility] | gastric bypass | | | | [address] [facility] | [facility] [address] | (Primary Dx); | | | | for UB. and | [place], [place] | 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[facility] [address] | [address] | with insulin therapy | | | | [place], [place] | [phone] | ([facility]) | | | | [address] | | | | | | [phone] | | | +--------+---------+ + + + [...] Follow-Up Patient referred by: Randell Franks MD [address] [place] [address] Documented time of visit: 10:33 to 10:55 (22 minutes htao-ln-stjh with patient) Surgery: Gastric Bypass Date of [...] Bipolar disorder ([facility]) Chronic wound infection of abdomen from 2010 Cough Depression Diverticulitis of colon Dizziness Glaucoma Heart burn Hemorrhoids Hernia of abdominal wall Incisional hernia, incarcerated 2012 Insomnia Irregular periods Kidney stone Leaking of urine Leg sore Lymphedema Morbid obesity with body mass index of 70 and over in adult ([facility]) Myalgia and myositis Nausea Neck pain Numbness Osteoarthritis of knee Palpitations Pneumonia Shortness of breath Staphylococcal infection Stroke ([facility]) TIA (transient ischemic attack) due to Bromocriptine Tinea corporis UTI (urinary tract infection) Food logs: Yes-pen and paper Food choices: ground chicken, eggs, creamed soups (mushroom or tomato), cream of wheat occ, cottage cheese, latvian yogurt-light and fit, protein bar from [employer]. Unable to keep protei n shakes down. Fluid choices: water-4-5 bottles per day Supplementation: Flinstones, iron, vitamin D, vitamin C, Citracal supplement x 2 in the mor eusebio and 2 at night, magnesium, potassium, [id number] today Assessment: Vomiting likely due to volume [...] multivitamin & mineral (with iron) supplement, 2/day -7012-8371 mg calcium citrate with vitamin D/day (take in divided doses, not within 2 hour s of multivitamin or iron supplement) -500 mcg/day sublingual B12 supplement (or monthly injections) Continued to reinforce importance of mindful eating. Continue to increase physical activity. Follow up in [address],[place] Pager# [phone] Phone: [phone] documented in this en counter Plan of Treatment +--------+ + + + + | Date | Type | Specialty | Care Team | Description | +--------+ + + + + | 03/22/ | Office | Cardiology | Randell Franks, | | | 2019 | Visit | | [address] | | | | | | [place], [place] | | | | | | [address] | | | | | | [phone] | | | | | | | | +--------+ + + + + | 04/04/ | Telephone-S | Surgery | Orquidea Cristobal, | | | 2019 | cheduled | | UPHOLSTERY RESTORER [address] | | | | | | [place], [place] | | | | | | [address] | | | | | | [phone] | | | | | | | | +--------+ + + + + documented as of this encounter Procedures + +--------+ + + + | Procedure Name | Priori | Date/Time | Associated Diagnosis | Comments | | | ty | | | | + +--------+ + + + | [place] MNT RE-ASSESSMNT | Routin | 04/01/2018 | [...]
--- OUTSIDE RECORDS SUMMARY | ~2020-02-27 | XMS | Encounter Summary ---
Demographics + + + | Address | [address] | | | [place] [address] | + + + | Home Phone [...] [place], [place] | | | | | [address] | | + + + + + | Ellie Vang | ECON | Unknown | | + + + + + Care Team Providers + +------+ + | Care Warranty Manager Name | Role | Phone | [...] [address] | | | | | | [facility] [place] | | | | | | [address] | | | | | | [phone] | | | | | | | | +--------+ + + + + | 04/04/ | Telephone-S | Surgery | Orquidea Cristobal, | | | 2019 | cheduled | | ELEVATING GRADER OPERATOR [address] | | | | | | [place], [place] | | | | | | [address] | | | | | | [phone] | | | | | | | | +--------+ + + + + documented as of this encounter Visit Diagnoses Not on filedocumented in this encounter"
--- OUTSIDE RECORDS SUMMARY | ~2020-02-27 | XMS | Encounter Summary ---
Demographics + + + | Address | [address] | | | [place] [address] | + + + | Home Phone [...] [place], [place] | | | | | [address] | | + + + + + | Ellie Vang | ECON | Unknown | | + + + + + Care Team Providers + +------+ + | Care Watermelon Harvesting Supervisor Name | Role | Phone [...] | | | | [address] | [place], [place] | | | | | | [place], | [address] | | | | | | [place] | Phone: | | | | | | [address] | [phone] | | | | | | Phone: | Fax: | | | | | | [phone] | [phone] | | | | | | Fax: | | | | | | | [phone] | | +--------+--------+ + + + + [...] | | | | hernia | [place] | [address] | | | | | without | SURGICAL | [facility] | | | | | mention of | [facility] [address] [place], | | | | | obstruction | [address] | [place] | | | | | or gangrene | [address]VE | [address] | | | | | | [place], | Phone: | | | | | | [place] [address] | [phone] | | | | | | Phone: | Fax: | | | | | | [phone] | [phone] | | | | | | Fax: | | | | | | | [phone] | | +--------+--------+ + + + + Encounter Details +--------+---------+ + + + | Date | Type | Department | Care Team | Description | +--------+---------+ + + + | 10/07/ | Office | Digestive Health | Hernandez Brian, | Hernia (Primary Dx) | | 2012 | Visit | Center at [facility] [address] | [address] [facility] | | | | | [facility] | [place] | | | | | for Health and | [place], [place] | | | | | [facility] [address] | [address] | | | | | [place], [place] | [phone] | | | | | [address] | | | | | | [phone] | | | +--------+---------+ + + + [...] colonoscopy), but [place] [facility] [place] mentioned this was probably an incisional [...] 2. Optimally will need coordination for [facility] Medicaid & [facility] Bariatric program for wt loss. 3. [...] material. 4. Continue to meet with her Conference Service Coordinator in the outpatient setting for diet and [...] has been instructed to f/u w/ her dry end tester for a strict diet of <1000 kcal/d [...] teaching. Howie Faria MD MIS/Bariatric Fellow, Pager [address] [facility] Attending provider: Hernandez Brian MD documented in this en counter Plan of Treatment +--------+ + + + + | Date | Type | Specialty | Care Team | Description | +--------+ + + + + | 03/22/ | Office | Cardiology | Randell Franks, | | | 2019 | Visit | | [address] | | | | | | [place], [place] | | | | | | [address] | | | | | | [phone] | | | | | | | | +--------+ + + + + | 04/04/ | Telephone-S | Surgery | Orquidea Cristobal, | | | 2020 | sherrill | | POWER REACTOR SUPERVISOR [address] | | | | | | [place], [place] | | | | | | [address] | | | | | | [phone] | | | | | | | [...] | + +---------+ + + | [facility] DEPARTMENT OF | | | [...]
--- OUTSIDE RECORDS SUMMARY | ~2020-02-27 | XMS | Clinical Summary ---
[...] + + + | Author | [facility] | + + + | Organization | [facility] | + + [...] [place], [place] | | | | | [address] | | + + + + + | Ellie Vang | ECON | Unknown | | + + + + + Care Team Providers + +------+ + | Care Supervisor Kosher Dietary Service Name | Role | Phone | + +------+ + | Kenyatta Cardenas MD | PCP | | + +------+ + Source Comments [facility] is fully live on both [facility] and [facility] InPatient[facility] Allergies + + + + [...] 0 | | | Activ | | [id number] | mouth two times | | | [...] | + + + +---+------+---+-------+ | thyroid (SWITCHBOARD CLERK | Take 30 mg by mouth | [...] tablet by | 270 | 3 | 06 | | Activ | | oral | [...] TABLET BY | 90 | 1 | 07/ | [...] | Visit | | MD [address] | | | | | | [place], [place] | | | | | | [address] | | | | | | [phone] | | | | | | | | +--------+ + + + + | 04/04/ | Telephone-S | Surgery | Orquidea Cristobal, | | | 2019 | cheduled | | COLOR WORKER [address] | | | | | | [place], [place] | | | | | | [address] | | | | | | [phone] | | | | | | | | +--------+ + + + + + + + + + | Health Maintenance | Due Date | Last Done | Comments | + + + + + | Influenza (Flu) | | 04/27/2018, 06/04/2017, | | | vaccination (#1) | 0 | 04/16/2016, Additional history | [...] - | | | | | | /[id number] | | [id number]: Qty: 1 on | | | | | | 525 | | 03/01/2018 by Ion Pandey | | | | | | | | MD [facility] at [facility] | | | | [...] - | | | | | | /[id number] | | [id number]: Qty: 1 on | | | | | | 173 | | 03/01/2018 by Ion Pandey | | | | | | | | MD [facility] at [facility] | | | | [...] | | | + +--------+ +--------+-------+---------+--------+ | VACCINE KEY CUSTOMER LEADER MEDICAID | VACCINE KEY CUSTOMER LEADER | xxxxxxxx | | | | Medica [...] | | 1975 | [phone] | [address] [place] | | | [place] | | | [address] (Home) | [address] | + +--------+ +--------+ + + Advance [...]
--- OUTSIDE RECORDS SUMMARY | ~2020-02-27 | XMS | Encounter Summary ---
Demographics + + + | Address | [address] | | | [place] [address] | + + + | Home Phone [...] [place], [place] | | | | | [address] | | + + + + + | Ellie Vang | ECON | Unknown | | + + + + + Care Team Providers + +------+ + | Care Leather Stamper Name | Role | Phone | + [...] Ave | | | | | | [place], [place] | | | | | | [address] | | | | | | [phone] | | | | | | | | +--------+ + + + + | 04/04/ | Telephone-S | Surgery | Orquidea Cristobal, | | | 2019 | cheduled | | RISK CONTROL DIRECTOR [address] | | | | | | [place], [place] | | | | | | [address] | | | | | | [phone] | | | | | | | | +--------+ + + + + documented as of this encounter Visit Diagnoses Not on filedocumented in this encounter"
--- OUTSIDE RECORDS SUMMARY | ~2020-02-27 | XMS | Encounter Summary ---
Demographics + + + | Address | [address] | | | [place] [address] | + + + | Home Phone [...] [place], [place] | | | | | [address] | | + + + + + | Ellie Vang | ECON | Unknown | | + + + + + Care Team Providers + +------+ + | Care Steam And Power Supervisor Name | Role | Phone | [...] [place] | | | | | | [address] | | | | | | [phone] | | | | | | | | +--------+ + + + + | 04/04/ | Telephone-S | Surgery | Orquidea Cristobal, | | | 2019 | cheduled | | SHELLACKER [address] | | | | | | [place], [place] | | | | | | [address] | | | | | | [phone] | | | | | | | | +--------+ + + + + documented as of this encounter Visit Diagnoses Not on filedocumented in this encounter"
--- OUTSIDE RECORDS SUMMARY | ~2020-02-27 | XMS | Encounter Summary ---
Demographics + + + | Address | [address] | | | [place] [address] | + + + | Home Phone [...] + | Katalina Padilla | ECON | [address] | | | | | [place], [place] | | | | | [address] | | + + + + + | Ellie Vang | ECON | Unknown | | + + + + + Care Team Providers + +------+ + | Care Master Control Technician Name | Role | Phone | [...] | Encounter | [address] | [address] | | | | | [place], [place] | [address] | | | 08/23/ | | [address] | [place], [place] | | | 2019 | | [phone] | [address] | | | | | | [phone] | | | | | | | | | | | | Nay Joe, | | | | | | [address] | | | | | | [address] | | | | | | [place], [place] | | | | | | [address] | | | | | | [phone] | | | | | | | | | | | | Jones Tiwari, | | | | | | [address] [facility] | | | | | | [address] | | | | | | [place], [place] | | | | | | [address] | | | | | | [phone] | | | | | | | [...] the gallo. 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 She di d have difficulty [...] condition. She will follow up at the [facility] with Dr. Tiwari in 2- [...] by mouth once daily at bedtime. CALCIUM CRB&HPT-[id number]-GENIS ORAL Take 2 tablets by mouth two [...] daily. ASK your doctor about these medications SUBSCRIPTION AGENT THYROID 30 mg Tab tab Generic drug: [...] the prescribed narcotic-opioid (e.g. oxycodone, hydrocodone, Vicodin, [place], Percocet, Dilaudid) as needed. However, Vicodin/Bluff[place] and Percocet contain acetam inophen in the [...] Narcotic-opioid pain medications (e.g. oxycodone, hydrocodone, Vicodin, [place], Percocet, Di laudid) can be constipating, therefore you should take a stool softener on the same day as s tarting your narcotic pain medicine. Options include: Milk of Magnesia: 2 Tablespoons Twice daily Colace (=Docusate): 1 pill Twice daily Miralax: 1 Tablespoon (17 grams) daily (check bottle for mixing instructions) While these are some recommendations, any bgih-fha-ioopfzn stool softener should work, and generics are [...] and plan of care. JONES TIWARI MD [facility] [address] [place] [address] documented in this encounter Discharge Instructions Discharge [...] hours by calling the surgery office at [phone]. After hours, weekends and holidays, you may call the hospital borematic machine operator at [phone] and have the ion exchange operator Green Team for general surgery paged. [...] the gallo. 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 She did have dif ficulty [...] dition. She will follow up at the [facility] with Dr. Tiwari in [...] the prescribed narcotic-opioid (e.g. oxycodone, hydrocodone, Vicodin, [place], Percocet, Dilaudid) as needed. However, Vicodin/[place]uff[place] and Percocet contain acetam inophen in the [...] Narcotic-opioid pain medications (e.g. oxycodone, hydrocodone, Vicodin, [place], Percocet, Di laudid) can be constipating, therefore you should take a stool softener on the same day as s tarting your narcotic pain medicine. Options include: Milk of Magnesia: 2 Tablespoons Twice daily Colace (=Docusate): 1 pill Twice daily Miralax: 1 Tablespoon (17 grams) daily (check bottle for mixing instructions) While these are some recommendations, any iaos-bfr-menpamw stool softener should work, and generics are fine to use. Increase your fluids, especially your intake of water Increase your activity. Walk frequently. ANTICOAGULATION: We recommend you make an appointment to be seen in your local anticoagulation clinic on Thu08/25/19 to recheck your INR and for ongoing management of your warfarin. FOLLOW-UP: Please call Dr. Tiwari's office ([phone]) to schedule a follow-up appointment for 2-3 [...] 2 tablets by | | 0 | 01/28/20 | | | mg oral tablet | [...] | | 0 | | | | CRB&[id number]-[id number]-GEN | mouth two times | | | [...] + + +---------+ + + | thyroid (SUBSCRIPTION AGENT | Take 30 mg by mouth | [...] assist PRN. Anticipate discharge michelle Chandler MD [facility], PGY-1 [employer] [employer] Pager: [phone] signed by Jones Tiwari MD at 08/22/2019 1:36 PM Gadiel Armstrong [...] dc in 2-3 days Gadiel Chandler MD [facility], PGY-1 Green Manager [employer] Pager: [phone] Associated attestation - Jones Tiwari MD - 08/21/2019 9:57 AM PSTI performed a hist ory and physical examination of the patient and discussed her management with the resident. I reviewed the resident s note and agree with the documented findings and plan of care. JONES TIWARI MD [facility] [address] [place] [address] Valencia Zamora MD - 08/20/2019 8:42 AM [...] well. - ruiz out today - dc ELEVATOR CONSTRUCTOR HYDRAULIC - ppx lovenox today - therapeutic lovenox [...] care -Multimodal pain control Joselyn Everett MD [facility] General Surgery PGY1 [id number] Gadiel Armstrong MD - 08/19/2019 12:34 PM [...] hernia repair with mesh Gadiel Chandler MD [facility], PGY-1 Green Manager Wholesale Pager: [phone] documented in this encounter Plan of Treatment +--------+ + + + + | Date | Type | Specialty | Care Team | Description | +--------+ + + + + | 03/22/ | Office | Cardiology | Aly Franks, | | 2019 | Visit | | [address] | | | | | | [facility] [place] | | | | | | [address] | | | | | | [phone] | | | | | | | | +--------+ + + + + | 04/04/ | Telephone-S | Surgery | [place]qu[place] Cristobal, | | 2019 | chesteve | | CUSTOM MOTORCYCLE PAINTER [address] | | | | | | [place], [place] | | | | | | [address] | | | | | | [phone] | | | | | | | [...] | + + + + + | [facility] | [address] | [place] [address] | | | SERVICES, LYDIA | CLARENCE [...] + | NKE[facility] | [address] | [place] [address] | | | SERVICES, CORE | CLARENCE [...] [facility] | [address] | [place] [address] | | | SERVICES, CORE | PARK [...] [facility] | [address] | [place], [place] | | | [place] POINT OF CARE | [address] | [address] | | | TESTS | | | [...] [facility] | [address] | [place], [place] | | | [place], POINT OF CARE | [address] | [address] | | | TESTS | | | [...] | + + + + + | [employer] | [address] | [place] [address] | | | SERVICES, | [address] [...] [facility] | [address] | [place] [address] | | | [address] | | | | TRANSFUSION MEDICINE [...] 23 | 23 - 29 mmol/L | [facility] - | | | JEMAL, POC | | | [place]U | | | | | | JUSTINE DAWN | | | | | | OF CARE | | | | | | TESTS | | + + + + + + | PH VENOUS, | 7.33 (L) | 7.35 - 7.45 | [facility] - | | | POC | | | [place] | | | | | | HILL, [...] AMES | [address] | [place], [place] | | | JUST[facility] | [facility] | [address] | | | TESTS | | | | + + + + + MADAY CEDILLO ONLY (08/18/2019 4:22 PM PST) + + [...] | [facility] | | | GRAVITY | [place] performed by | | LABORATORY | | [...] [facility] | [address] | [place] [address] | | | SERVICES, CORE | CLARENCE [...] [facility] | [address] | [place] [address] | | | SERVICES, | [address] [...] [facility] | [address] | [place] [address] | | | SERVICES, CORE | CLARENCE [...] [facility] | [address] | [place] [address] | | | SERVICES, CORE | CLARENCE [...] [facility] | [address] | [place] [address] | | | SERVICES, CORE | PARK [...] [facility] | [address] [facility] | [place] [address] | | | SERVICES, CORE | PARK [...] | + + + + + | [facility] | [address] | [place] [address] | | | SERVICES, CORE | [address] | | | + + + + + ED INFORMATION EXCHANGE (08/18/2019 1:47 PM PST) + + | Specimen | + + | | + + + + + | Narrative | Performed At | + + + | COLLECTIVE?NOTIFICATION?08/18/2019 13:47?DYLAN ROMERO?MRN: | COLLECTIVE | | [id number] Criteria Met 5 Visits In 12 Months Has | MEDICAL | | Guidelines PDMP Security and Safety No recent Security Events | [employer] | | currently on file ED Care Guidelines from [employer] [facility] [place] | | | Last Updated: 12/06/18 9:53 AM Care Coordination: Receiving | | | mental health services with [employer].? Please contact [employer] for | | | mental health concerns.? Sarah/Toni Centeno: [phone]? | | | Kishan: [phone].? These are guidelines and the provider | | | should exercise clinical judgment when providing care. Care | | | History Medical/Surgical 05/24/19 12:00 AM [facility] | | | Hospital PATIENT HAS AN APT ON 06/16/[address] HYLTON. | | | 05/11/19 12:00 AM [facility] Patient is | | | currently established with [facility]. If patient is seen in | | | the ED during business hours. Please contact CHWs at [facility] | | | Clinic. Care [...] care. 08/23/18 12:00 AM | | | [facility] PATIENT HAS A PCP APT TO ESTABLISH | | | CARE ON 10/04/18 @ 10:00AM WITH DR HYLTON. Flags | | | [place] Disparity [place] - [place] ([place] | | | [place]ity [place]) to help support Medicaid members with mental | | | illness. [facility] uses claims data with a 36-month [...] | are updated weekly. / Attributed By: [place] [facility] ([facility]) / | | | Attributed On: 08/09/2019 [...] MG TABLET 60 WINSTON JEFFAS 4 0 2019-05-14 OXYCODONE HCL 5 | [...] | | | mo.) Facility Visits [facility] 1 [facility] and | | | [facility] 2 [facility] 7 Total 10 Note: | | | Visits indicate total known visits. Recent Emergency Department | | | Visit Summary Date Facility City State Type Diagnoses or Chief | | | Complaint Aug 18, 2019 [facility] [place] | | | [place] Emergency 10,800. amr [facility] | | [place] Emergency oil heaterman (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 | | | Anxiety disorder, unspecified Cellulitis of abdominal wall | | | Acute embolism and thrombosis of deep veins of r up extrem | | | Nicotine dependence, unspecified, uncomplicated Migraine, unsp, | | | not intractable, without status migrainosus Unspecified | | | abdominal pain Allergy status to oth drug/meds/biol subst status | | | Other care home (current) drug therapy Allergy status to | | | penicillin Jun 19, [address] [facility] [address] [facility] [place] Emergency | | | oil heaterman (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 Prsnl hx of [...] unspecified Jun 01, 2019 | | | [facility] [place] Emergency Headache Allergy | | | status to penicillin Anxiety disorder, unspecified | | | Obesity, unspecified Migraine, unsp, not intractable, without | | | status migrainosus Other superintendent container terminal (current) drug therapy | | | Allergy status to oth drug/meds/biol subst status oil heaterman | | | (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 snf (current) use of | | | aspirin May 23, 2019 [facility] [place] Emergency | | | Anxiety disorder, unspecified Acute embolism and thrombosis of | | | deep veins of r up extrem Allergy status to penicillin | | | Other care home (current) drug therapy Pain in right [...] | | | Allergy status to penicillin oil heaterman (current) use of | | | aspirin Prsnl hx of TIA (TIA), and cereb infrc w/o resid | | | deficits Other superintendent container terminal (current) drug therapy May 13, | | | 2019 [facility] [place] Emergency | | | 10,800. A303 18,400. Bariatric surgery status 18,400. | | | Ventral hernia without obstruction or gangrene 18,400. Nausea | | | with vomiting, unspecified 18,400. Unspecified abdominal pain | | | 18,400. Nonspecific mesenteric lymphadenitis May 10, 2019 [facility] [place] Emergency Nausea with vomiting, | | | unspecified Solitary pulmonary nodule Anxiety disorder, | | | unspecified Ventral hernia without obstruction or gangrene | | | Unspecified abdominal pain Diarrhea, unspecified Allergy | | | status to oth drug/meds/biol subst status Prsnl hx of TIA (TIA), | | | and cereb infrc w/o resid deficits Other superintendent container terminal (current) | | | drug therapy Allergy status to penicillin December 03, 2018 [facility] | | | [facility]. [place] Emergency RIGHT LEG PAIN DUE TO FALL | | | Strain of unsp musc/tend at lower leg level, right leg, init | | | Aug 22, 2018 [facility] [place] Emergency Other | | | care home (current) drug therapy Upper abdominal pain, | | | unspecified Bariatric surgery status Allergy status to oth | | | drug/meds/biol subst status Noninfective gastroenteritis and | | | colitis, unspecified Obesity, unspecified Anxiety | | | disorder, unspecified oil heaterman (current) use of aspirin | | | Allergy status to penicillin Personal history of pulmonary | | | embolism Recent Inpatient Visit Summary No recorded | | | inpatient visits. Care Team Provider Specialty Phone Fax Service | | | Dates Eagle Nino CHW Community Health Worker | | | Jul 03, 2019 - Current JONES DAVISON D.M.D. Dentist: | | | Director Of Income Tax May 23, 2019 - | | | Current Rob Tilley Fiscal Accounting Clerk/Portable Track Crew Chief [id number] | | | [phone] Mar 27, 2018 - Current Bernard Hylton MD Internal | | | Medicine: Pulmonary Disease Aug 23, 2018 - Current | | | [facility] This patient has registered at the [facility] | | | [facility] Emergency Department For more information | | | visit: | | | [email or web address] | | | [email or web address] PLEASE NOTE: 1. Any care recommendations [...] or completeness of information provided. ? 2020 [employer] | | | [employer] | | + + + + + [...] on fileED Care Guidelines | | from [employer] [place] Updated: 12/06/18 9:53 AM Care Coordination:Receiving | | mental health services with [employer].? Please contact [employer] for mental health | | concerns.? Sarah/Toni Centeno: [phone]? Kishan: [phone].?These are | | guidelines and the provider should exercise clinical judgment when providing care.Care | | HistoryMedical/Psfqjiqo19/29/19 12:00 AM [facility] PATIENT HAS AN APT | | ON 06/16/[address] HYLTON.05/11/19 12:00 AM [facility] Patient is | | currently established with [facility]. If patient is seen in the ED during | | business hours. Please contact CHWs at [facility].Care Recommendation:This | | patient has had 5 [...] when providing | | care.08/23/18 12:00 AM [facility] PATIENT HAS A PCP APT TO ESTABLISH CARE | | ON 10/04/18 @ 10:00AM WITH DR HYLTON. Flags [place] Disparity [place] - [place] has | | developed a flag ([place]) to help support Medicaid members with | | mental illness. [facility] uses claims data with a 36-month [...] | | updated weekly. / Attributed By: [place] [facility] ([facility]) / Attributed On: | [...] JONES LANEY, JR. 0 2019-06-28 FENTANYL 12 MCG/HR PATCH 10 | | BETZY BALDWIN PA-C 2 0 2019-06-27 SUDOGEST 12 HOUR 120 MG CAPLET 30 JONES LANEY, | | JR. 0 2019-06-26 HYDROCODONE-ACETAMIN 5-325 MG 10 JAYRO GAGE MD 2 2019-06-15 | | SUDOGEST 12 HOUR 120 MG CAPLET 30 JONES LANEY, JR. 0 2019-06-14 ALPRAZOLAM 1 MG | | TABLET 60 WINSTON JEFFAS 4 0 2019-06-03 SUDOGEST 12 HOUR 120 MG CAPLET 30 JONES LANEY, | | JR. 0 2019-05-27 PHENTERMINE 37.5 MG TABLET 90 ALY FRANKS MD 4 0 2019-05-24 | | FENTANYL 12 MCG/HR PATCH 5 BETZY BALDWIN PA-C 2 0 2019-05-17 SUDOGEST 12 HOUR 120 MG | | CAPLET 30 MARCO APPIAH PA-C 0 2019-05-17 ALPRAZOLAM 1 MG TABLET 60 WINSTON DAMON 4 0 | | 2019-05-14 OXYCODONE HCL [...] E.D. Visit Count (12 mo.)Facility Visits [facility] 1 [facility] | [facility] 2 [facility] 7 Total 10 Note: Visits indicate | | total known visits. Recent Emergency Department Visit SummaryDate Facility [facility] State | | Type Diagnoses or Chief Complaint Aug 18, 2019 [facility] | | [place] Emergency 10,800. amr Jun 25, 2019 [facility] [place] Emergency | | snf (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 Anxiety disorder, unspecified | | Cellulitis of abdominal wall Acute embolism and thrombosis of deep veins of r up | | extrem Nicotine dependence, unspecified, uncomplicated Migraine, unsp, not | | intractable, without status migrainosus Unspecified abdominal pain Allergy status | | to oth drug/meds/biol subst status Other superintendent container terminal (current) drug therapy Allergy | | status to penicillin Jun 19, 2019 [facility] [place] Emergency oil heaterman | | (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 Prsnl [...] unspecified Jun 01, 2019 | | [facility] [place] Emergency Headache Allergy status to penicillin | | Anxiety disorder, unspecified Obesity, unspecified Migraine, unsp, not | | intractable, without status migrainosus Other superintendent container terminal (current) drug therapy | | Allergy status to oth drug/meds/biol subst status snf (current) use of | | anticoagulants snf (current) use of aspirin [facility] | [place] Emergency Anxiety disorder, unspecified Acute embolism and thrombosis of | | deep veins of r up extrem Allergy status to penicillin Other superintendent container terminal (current) | | drug therapy Pain in right arm oil heaterman (current) use of aspirin Allergy | | status to oth drug/meds/biol subst status May 20, 2019 [facility] [place] | | Emergency Generalized abdominal pain Allergy status to oth drug/meds/biol subst | | status Unspecified abdominal pain Anxiety disorder, unspecified Other chronic | | pain Allergy status to penicillin snf (current) use of aspirin Prsnl hx | | of TIA (TIA), and cereb infrc w/o resid deficits Other care home (current) drug | | therapy May 13, 2019 [facility] [place] Emergency | | 10,800. A303 18,400. Bariatric surgery status 18,400. Ventral hernia without | | obstruction or gangrene 18,400. Nausea with vomiting, unspecified 18,400. | | Unspecified abdominal pain 18,400. Nonspecific mesenteric lymphadenitis May 10, 2019 | | [facility] [place] Emergency Nausea with vomiting, unspecified Solitary | | pulmonary nodule Anxiety disorder, unspecified Ventral hernia without obstruction | | or gangrene Unspecified abdominal pain Diarrhea, unspecified Allergy status to | | oth drug/meds/biol subst status Prsnl hx of TIA (TIA), and cereb infrc w/o resid | | deficits Other superintendent container terminal (current) drug therapy Allergy status to penicillin November | | 2018 [facility]. [place] Emergency RIGHT LEG PAIN DUE TO FALL | | Strain of unsp musc/tend at lower leg level, right leg, init Aug 22, [address] [facility] [address] | | [facility] [place] Emergency Other superintendent container terminal (current) drug therapy Upper | | abdominal [...] 2019 - Current JONES DAVISON D.M.D. Dentist: Director Of Income Tax ([id number]) | | [phone] May 23, 2019 - Current Rob Tilley Fiscal Accounting Clerk/Care | | Coordinator Mar 27, 2018 - Current Bernard Hylton MD Internal Medicine: | | Pulmonary Disease Aug 23, 2018 - Current [facility] Online PortalThis patient has registered | | at the [facility] and [facility] Emergency Department For more information | | visit: [email or web address] | | PLEASE NOTE: 1. Any care [...] completeness of information | | provided.? 2019 [employer] - [email or web address] | | Allergy status to oth drug/meds/biol subst status | | Other care home (current) drug therapy | | Allergy status to penicillin | | | |Jun 19, 2019 [facility] [place] Emergency | | snf (current) [...] | | | |Jun 01, 2019 [facility] [place] Emergency | | Headache | | Allergy status to penicillin | | Anxiety disorder, unspecified | | Obesity, unspecified | | Migraine, unsp, not intractable, without status migrainosus | | Other superintendent container terminal (current) drug therapy | | Allergy status to oth drug/meds/biol subst status | | oil heaterman (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 | | snf (current) use of aspirin | | | |May 23, 2019 [facility] [place] Emergency | | Anxiety disorder, unspecified | | Acute embolism and thrombosis of deep veins of r up extrem | | Allergy status to penicillin | | Other superintendent container terminal (current) drug therapy | | Pain in right arm | | snf (current) use of aspirin | | Allergy status to oth drug/meds/biol subst status | | | |May 20, 2019 [facility] [place] Emergency | | Generalized abdominal pain | | Allergy status to oth drug/meds/biol subst status | | Unspecified abdominal pain | | Anxiety disorder, unspecified | | Other chronic pain | | Allergy status to penicillin | | snf (current) use of aspirin | | Prsnl hx of TIA (TIA), and cereb infrc w/o resid deficits | | Other care home (current) drug therapy | | | |May 13, 2019 [facility] [place] Emergency | | 10,800. A303 | | 18,400. Bariatric surgery status | | 18,400. Ventral hernia without obstruction or gangrene | | 18,400. Nausea with vomiting, unspecified | | 18,400. Unspecified abdominal pain | | 18,400. Nonspecific mesenteric lymphadenitis | | | |May 10, 2019 [facility] [place] Emergency | | Nausea with vomiting, unspecified | | Solitary pulmonary nodule | | Anxiety disorder, unspecified | | Ventral hernia without obstruction or gangrene | | Unspecified abdominal pain | | Diarrhea, unspecified | | Allergy status to oth drug/meds/biol subst status | | Prsnl hx of TIA (TIA), and cereb infrc w/o resid deficits | | Other care home (current) drug therapy | | Allergy status to penicillin | | | |December 03, 2018 [facility]. [place] Emergency | | RIGHT LEG PAIN DUE TO FALL | | Strain of unsp musc/tend at lower leg level, right leg, init | | | |Aug 22, 2018 [facility] [place] Emergency | | Other superintendent container terminal (current) drug therapy | | Upper abdominal pain, unspecified | | Bariatric surgery status | | Allergy status to oth drug/meds/biol subst status | | Noninfective gastroenteritis and colitis, unspecified | | Obesity, unspecified | | Anxiety disorder, unspecified | | oil heaterman (current) use of aspirin | | Allergy status to penicillin | | Personal history of pulmonary embolism | | | | | | | |Recent Inpatient Visit Summary | |No recorded inpatient visits. | | | |Care Team | |Provider Specialty Phone Fax Service Dates | |Eagle Nino, GABBIE Community Health Worker Jul 03, 2019 - Current | |JONES DAVISON D.M.D. Dentist: Director Of Income Tax May 23, 2 019 - Current | |Rob Tilley Fiscal Accounting Clerk/Portable Track Crew Chief Mar 27, 2018 - Current | |Bernard Hylton MD Internal Medicine: Pulmonary Disease Aug 23, 2018 - Current | | | |[facility] | |This patient has registered at the [facility] t | |For more information visit: [email or web address] | |PLEASE NOTE: | | 1. Any care recommendations and other clinical information are provided as guidelines or for historical purposes only, and providers should exercise their own clinical judgment whe n providing care. | | 2. You may only use this information for purposes of treatment, payment or health care o perations activities, and subject to the limitations of applicable [facility] Policies. | | 3. You should consult directly with the organization that provided a care guideline or o ther clinical history with any questions about additional information or accuracy or complet eness of information provided. | | | |? 2020 [employer]. - [email or web address] | + + + + + + + | Performing | Address | City/State/Zipcode | Phone Number | | Organization | | | | + + + + + | [facility] | [address] | [place], [place] | [phone] | | TECHNOLOGIES | [address] | [address] | | + + + + + [...] | | | | | NEEDED, Starting [facility] 08/18/19 at | | AM PST | [...] | | | HOURS, First dose on Thu08/22/19 | | | | | | | [...] + + +---+---+---+ | HYDROmorphone 0.5 mg/mL ELEVATOR CONSTRUCTOR HYDRAULIC | Rate/Dos | 08/20/19 | | | | | (ADULT STANDARD DOSE) in 0.9 % | e Verify | 20 4:12 | | | | | NaCl ELEVATOR CONSTRUCTOR HYDRAULIC Dose: 0.2 mg, Lockout | | AM [...] | | | | ONCE, 1 dose, [facility] 08/18/19 at 1530 | | PM PST [...] | | | | First dose on [facility] 08/18/19 at | | PM PST | [...] | | | | | NEEDED, Starting [facility] 08/18/19 at | | | | | [...] | | | | | NEEDED, Starting [facility] 08/18/19 at | | | | | [...] tablet 1 dose, | | | Starting Thu08/18/19 at 1853, | | | Until Thu08/18/19 at 1915 | | + +---+ | [...] First dose on Thu | | AM PST | | | [...] | | | | | 2118, Until 08/23/19 at 1901, | | | [...] dose on Jasmyne 08/18/19 at | | AM PST | [...]
--- OUTSIDE RECORDS SUMMARY | ~2020-02-27 | XMS | Encounter Summary ---
Demographics + + + | Address | [address] | | | [place] [address] | + + + | Home Phone [...] [place], [place] | | | | | [address] | | + + + + + | Ellie Vang | ECON | Unknown | | + + + + + Care Team Providers + +------+ + | Care Hl7 Developer Name | Role | Phone | [...] Jacy Flannery | | | | | [place] at | [place], [place] | | | | | [place] [address] | [address] | | | | | [facility] | [phone] | | | | | [facility] | | | | | | [place], [place] | | | | | | [address] | | | | | | [phone] | | | +--------+--------+ + + + [...] [place] | | | | | | [address] | | | | | | [phone] | | | | | | | | +--------+ + + + + | 04/04/ | Telephone-S | Surgery | Orquidea Cristobal, | | | 2019 | cheduled | | SLIP COVER ESTIMATOR [address] | | | | | | [place], [place] | | | | | | [address] | | | | | | [phone] | | | | | | | | +--------+ + + + + documented as of this encounter Visit Diagnoses Not on filedocumented in this encounter"
--- OUTSIDE RECORDS SUMMARY | ~2020-02-27 | XMS | Encounter Summary ---
Demographics + + + | Address | [address] | | | [place] [address] | + + + | Home Phone [...] + | Katalina Padilla | ECON | [address] | | | | | [place], [place] | | | | | [address] | | + + + + + | Ellie Vang | ECON | Unknown | | + + + + + Care Team Providers + +------+ + | Care Radial Arm Saw Operator Name | Role | Phone | + +------+ + | Fadi Goodrich DO | PCP | | + +------+ + Encounter Details +--------+ + + + + | Date | Type | Department | Care Team | Description | +--------+ + + + + | 07/19/ | Abstract | Digestive Health | Kathy Feldman, | | | 2012 | | [place] [address] [address] | SILK WINDING MACHINE OPERATOR [address] | | | | | [address] [facility] | [facility] [address] | | | | | for Health and | [place], [place] | | | | | [facility] 2 | [address] | | | | | [place], [place] | [phone] | | | | | [address] | | | | | | [phone] | | | +--------+ + + + [...] Ave | | | | | | [place], [place] | | | | | | [address] | | | | | | [phone] | | | | | | | | +--------+ + + + + | 04/04/ | Telephone-S | Surgery | Orquidea Cristobal, | | | 2019 | sherrill | | RISK CONTROL PRODUCT LIABILITY DIRECTOR [address] | | | | | | [place], [place] | | | | | | [address] | | | | | | [phone] | | | | | | | | +--------+ + + + + documented as of this encounter Visit Diagnoses Not on filedocumented in this encounter"
--- OUTSIDE RECORDS SUMMARY | ~2020-02-27 | XMS | Encounter Summary ---
Demographics + + + | Address | [address] | | | [place] [address] | + + + | Home Phone | | + + + | Preferred Language | Unknown | + + + | Marital Status | | + + + | Tenriism Affiliation | Unknown | + + + | Race | Unknown | + + + | Ethnic Group | Unknown | + + + Author + + + | Author | [facility] | | | and Jeffana | + + + | Organization | [facility] | | | and [...] Team Providers + +------+ + | Care 6Th Grade Teacher Name | Role | Phone | + +------+ + PCP | Unavailable | + +------+ + Encounter Details +--------+ + + + + | Date | Type | Department | Care Team | Description | +--------+ + + + + | 04/14/ | Orders Only | [facility] | Conversion | | | 2015 | | NEPHROLOGY [place] | Transaction, | | | | | [address] | Provider Unknown | | | | | [address] [place], [place] | | | | | | [address] | (Fax) | | | | | [phone] | | | +--------+ + + + [...] D | | | | | | [place] [address] | | | | | | [phone] | | | | | | | | +--------+ + + + + | 03/29/ | Office | Cardiology | Sulema Altamirano | | | 2019 | Visit | | [address] | | | | | | [address] | | | | | | [place] [address] | | | | | | [phone] | | | | | | | [...] - 1.030 | EXTERNAL | | | [place], | | | LAB | | | [...]
--- OUTSIDE RECORDS SUMMARY | ~2020-02-27 | XMS | Encounter Summary ---
Demographics + + + | Address | [address] | | | [place] [address] | + + + | Home Phone [...] [place], [place] | | | | | [address] | | + + + + + | Ellie Vang | ECON | Unknown | | + + + + + Care Team Providers + +------+ + | Care Mover Name | Role | Phone | + [...] | | | | | Procedures | [place], [place] | | | | | | TRANSTHORACI | [address] | | | | | | C | Phone: | | | | | | ECHOCARDIOGR | [phone] | | | | | | AM, ADULT | Fax: | | | | | | | [phone] | | +--------+--------+ + + + + [...] | 2016 | Visit | Preventive at [facility] | MD [address] | exertion) (Primary | | | | [address] | [place], [place] | Dx) | | | | [facility] | [address] | | | | | and Healing, | [phone] | | | | | Building [address] | | | | | | [place], [place] | | | | | | [address] | | | | | | [phone] | | | +--------+---------+ + + + [...] 500 mg by mouth once daily. CALCIUM CRB&PVW-U6-VLK16-GENIS ORAL Take 1 tablet by mouth two [...] himself to the local hospit al in [place] and so this has been delayed. ROS: [...] to lose the additional weight requested by [facility]ariat[facility] group. This current weight [...] Ave | | | | | | [place], [place] | | | | | | [address] | | | | | | [phone] | | | | | | | | +--------+ + + + + | 04/04/ | Telephone-S | Surgery | Orquidea Cristobal, | | | 2019 | cheduled | | SUMMER SCHO[employer] COORDINATOR [address] | | | | | | [place], [place] | | | | | | [address] | | | | | | [phone] | | | | | | | [...]
--- OUTSIDE RECORDS SUMMARY | ~2020-02-27 | XMS | Encounter Summary ---
Demographics + + + | Address | [address] | | | [place] [address] | + + + | Home Phone [...] [place], [place] | | | | | [address] | | + + + + + | Ellie Vang | ECON | Unknown | | + + + + + Care Team Providers + +------+ + | Care Accordion Tuner Name | Role | Phone | + +------+ + | Fadi Goodrich DO | PCP | | + +------+ + Encounter Details +--------+------+ + + + | Date | Type | Department | Care Team | Description | +--------+------+ + + + | 11/28/ | Lab | Laboratory at [facility] | | Essential | | 2017 | | [address] | | hypertension; Right | | | | [facility] | | heart failure (HCC); | | | | and Healing, | | Type 2 diabetes | | | | Building [address] | | mellitus without | | | | [place], [place] | | complication, with | | | | [address] | | long-term current | | | | [phone] | | use of insulin (HCC) | [...] Ave | | | | | | [place], [place] | | | | | | [address] | | | | | | [phone] | | | | | | | | +--------+ + + + + | 04/04/ | Telephone-S | Surgery | Orquidea Cristobal, | | | 2019 | cheduled | | DAMPER WORKER [address] | | | | | | [place], [place] | | | | | | [address] | | | | | | [phone] | | | | | | | [...] (NA,K,CL,CO2,BUN,CRE | | PDT | heart failure ([facility]) | results section. | | AT,GLUC,CA,AST,ALT,B | | | Type 2 diabetes | | | MARGIE TOTAL,ALK | | | mellitus without | | | PHOS,ALB,PROT TOTAL) | | | complication, with | | | | | | long-term current | | | | | | use of insulin ([facility]) | | + +--------+ + + + | TSH | Routin | 11/28/2016 | Essential | Results for this | | | e | 10:53 AM | hypertension Right | procedure are in the | | | | PDT | heart failure ([facility]) | results section. | | | | | Type 2 diabetes | | | | | | mellitus without | | | | | | complication, with | | | | | | long-term current | | | | | | use of insulin ([facility]) | | + +--------+ + + + | HEMOGLOBIN A1C, | Routin | 11/28/2016 | Essential | Results for this | | BLOOD | e | 10:53 AM | hypertension Right | procedure are in the | | | | PDT | heart failure ([facility]) | results section. | | | | | Type 2 diabetes | | | | | | mellitus without | | | | | | complication, with | | | | | | long-term current | | | | | | use of insulin ([facility]) | | + +--------+ + [...] [facility] | [address] | [place] [address] | | | LYDIA RANGEL | CLARENCE [...] [facility] | [address] | [place], [place] | | | SERVICES, LIPID | [address] | [address] | | + + + + + HEMOGLOBIN A1C, BLOOD (11/28/2016 10:53 AM PDT) + + + + + + | Component | Value | Ref Range | Performed | Pathologist | | | | | At | Signature | + + + + + + | HEMOGLOBIN | 6.8 (H)Comment: Hgb A1C | <5.7 % | [facility] | | | A1C | Interpretive | [...] glycated albumin should be considered for monitoring [facility] | LABORATORY | | glycemic control in [...] | + + + + + | [facility] | [address] | [place] [address] | | | SERVICES, SPECIAL | PARK [...] | | | LABORATORY | | | NIUEAN | | | SERVICES, | | | [...] | + + + + + | [facility] | [address] | [place] [address] | | | SERVICES, CORE | CLARENCE [...]
--- OUTSIDE RECORDS SUMMARY | ~2020-02-27 | XMS | Encounter Summary ---
Demographics + + + | Address | [address] | | | [place] [address] | + + + | Home Phone [...] [place], [place] | | | | | [address] | | + + + + + | Ellie Vang | ECON | Unknown | | + + + + + Care Team Providers + +------+ + | Care Cesspool Cleaner Name | Role | Phone | [...] [facility] | MD [address] | (PHENTERMINE 37.5 mg | | | | [address] | [place], [place] | ) | | | | [facility] | [address] | | | | | and [place], | [phone] | | | | | [place] [address] | | | | | | [place], [place] | | | | | | [address] | | | | | | [phone] | | | +--------+--------+ + + + [...] [address] | | | | | | [place] | | | | | | [address] | | | | | | [phone] | | | | | | | | +--------+ + + + + | 04/04/ | Telephone-S | Surgery | Orquidea Cristobal, | | | 2019 | cheduled | | FLASH DESIGNER [address] | | | | | | [place], [place] | | | | | | [address] | | | | | | [phone] | | | | | | | | +--------+ + + + + documented as of this encounter Visit Diagnoses Not on filedocumented in this encounter"
--- OUTSIDE RECORDS SUMMARY | ~2020-02-27 | XMS | Encounter Summary ---
Demographics + + + | Address | [address] | | | [place] [address] | + + + | Home Phone [...] [place], [place] | | | | | [address] | | + + + + + | Ellie Vang | ECON | Unknown | | + + + + + Care Team Providers + +------+ + | Care Affiliate Marketing Manager Name | Role | Phone | [...] | | | | | bypass | [place], | [facility], | | | | | Nausea and | [place] | 10th Floor | | | | | vomiting, | [address] | [place], [place] | | | | | intractabili | Phone: | [phone] | | | | | ty of | | Phone: | | | | | vomiting not | Fax: | [phone] | | | | | specified, | [phone] | Fax: | | | | | unspecified | | [phone] | | | | | vomiting | [...] | | | | | bypass | [place], | [place] [facility] | | | | | Nausea and | [place] | Health and | | | | | vomiting, | [address] | Healing, | | | | | intractabili | Phone: | Building 1, | | | | | ty of | [phone] | 5th Floor | | | | | vomiting not | Fax: | [place], [place] | | | | | specified, | [phone] | [address] | | | | | unspecified | | Phone: | | | | | vomiting | | [phone] | | | | | type | [...] | | | | | bypass | [place], | [facility] and | | | | | Nausea and | [place] | Healing, | | | | | vomiting, | [address] | [address] 2 | | | | | intractabili | Phone: | [place], [place] | | | | | ty of | | [address] | | | | | vomiting not | Fax: | Phone: | | | | | specified, | [phone] | [phone] | | | | | unspecified | | Fax: | | | | | vomiting | | [phone] | | | | | type | [...] | | | | | | | [place] [facility]PP[facility] GI | | | | | [...] | [facility] | | | with VASCULAR RADIOLOGIST | | hypertension | [address] | [address] | | | | | Right | [address] | [address] | | | | | heart | [place], [place] | [place] [facility] | | | | | failure | [address] | Health and | | | | | ([facility]) Type | Phone: | Healing, | | | | | 2 diabetes | [phone] | Building 2 | | | | | mellitus | Fax: | [place], [place] | | | | | without | [phone] | [address] | | | | | complication | | Phone: | | | | | , with | | | | | | | long-term | | Fax: | | | | | current use | | [phone] | | | | | of insulin [...] | 2019 | Visit | Center at [facility] [address] | AGACNP [address] | gastric bypass | | | | [address] | Ave [place], [place] | (Primary Dx); Nausea | | | | for Health and | [address] | and vomiting, | | | | Healing, Building 2 | [phone] | intractability of | | | | [facility] [place] | | vomiting not | | | | [address] | | specified, | | | | [...] getting fluids at a local clinic in [place] -I will contact you if further testing is indicated -follow up with once of our surgeons once testing is complete -get some protein de la o--isopure or premier protein de la o. documented in this encounter Progress Notes Melissa Garay, KELSIE - 03/01/2019 1:50 PM PDTSpoke with patient's PCP office [phone] and notified them that Infusion unit at [facility] (fax [phone]) requires a provider with privileges there to sign the IV infusion orders. Since Dr. Cardenas is out on maternity leave, SOFI Ulrich will check with provider covering. Infusion order and chart not e faxed to PCP at [phone]. Patient notified. harli Zayas - 03/01/2019 1:50 PM PDTPatient presents for blo od draw per Providers order Site: LEFT A/C Time: 14:30 Patient tolerated well; ONE ATTEMPT brahamnavKeren, AGACNP - 03/01/2019 1:50 PM PDT BARIATRIC [...] 150 cm or less 8 [facility] Social History Socioeconomic History Marital [...] file Gets together: Not on file Attends evangelical service: Not on file Active member of club or organization: Not on file Attends meetings of clubs or organizations: Not on file Relationship status: Not on file Other Topics Concern Not on file Social History Narrative Updated 11/09/15 She lives in [place] with her mother and her sister (also her caregiver) lives in an apa rtment/duplex below. She has 2 grandchildren (age 4 and 7) who live with her daughter and son-in-law Her boyfriend lives in [place] HFpEF, DM2, HTN, Sleep Apnea (unable to [...] program here and refer her to our school library media specialist who also has expertise in physical [...] buccal film, , Disp: , Rfl: CALCIUM CRB&JIN-S1-AIE37-GENIS ORAL, Take 2 tablets by mouth two [...] be administered closer to [place] in [place]. LR 1-2 L 3 times weekly, until [...] to plan and will call and/or send Wetpaint message if any issues. Start time 1422, end time 1455. I spent a total of 33 minutes face to face with this patie nt. Over 50% of visit was in counseling. ALBINA Perrin Bariatric Surgery Nurse Practitioner [facility] | [address] | [place], [place] | [address] | documented in th is encounter Plan of Treatment +--------+ + + + + | Date | Type | Specialty | Care Team | Description | +--------+ + + + + | 03/22/ | Office | Cardiology | Randell Franks, | | | 2019 | Visit | | MD [address] | | | | | | [place], [place] | | | | | | [address] | | | | | | [phone] | | | | | | | | +--------+ + + + + | 04/04/ | Telephone-S | Surgery | Orquidea Cristobal, | | | 2019 | cheduled | | DRAW BENCH OPERATOR HELPER [address] | | | | | | [place], [place] | | | | | | [address] | | | | | | [phone] | | | | | | | [...] Note | + + | Service Account, Struq Res In Interface - 03/22/2019 1:04 PM [...] + | [facility] | [address] | [place] [address] | | | SERVICES, LYDIA | CLARENCE [...] B: | | | | | | Surface [employer].com/CSPerformed | | | | | | by [facility],[address] | | | | | | [facility] | | | | | | [address] | | | | | | [phone].Surface [employer]. | | | | | | lay[facility] hospitalIsmael MD, | | | | | [...] [facility] | [address] | [place], [place] | | | UNIV PTH - INTFC | | [address] | | + + + + + [...] [facility] | | | (YEN NOAH) | [facility],[address] | | REG UNIV | | | SERUM | [facility] | | PTH - INTFC | | | | [address] | | | | | | [phone].[employer] Solutionsuplab. | | | | | | Ismael [...] B: | | | | | | UC[employer]/CS | | | | + + + + + + + + | Specimen | + + | Blood - Blood | | (substance) | + + + + + + + | Performing | Address | City/State/Zipcode | Phone Number | | Organization | | | | + + + + + | [facility] | [address] | [place], [place] | | | UNIV PTH - INTFC | | [address] | | + + + + + [...] [facility] | [address] | [place] [address] | | | SERVICES, CORE | PARK [...] + | [facility] | [address] | [place] [address] | | | SERVICES, CORE | CLARENCE [...] B: | | | | | | [employer].Satago/CSPerformed | | | | | | by [employer],[address] | | | | | | [facility] | | | | | | [address] | | | | | | [phone].[employer]. | | | | | | com, [...] [facility] | [address] | [place], [place] | | | UNIV PTH - INTFC | | [address] | | + + + + + [...] INTFC | | | | determined by [employer] | | | | | | Laboratories. See | | | | | | Compliance Statement B: | | | | | | [employer].Satago/CSPerformed | | | | | | by [employer],[address] | | | | | | Natal[address] Parson, [facility] | | | | | | [address] | | | | | | [phone].[employer]. | | | | | | layton hospitalIsmael MD, | | | | | [...] [facility] | [address] | [place], [place] | | | UNIV PTH - INTFC | | [address] | | + + + + + [...] [facility] | [address] | [place] [address] | | | SERVICES, CORE | CLARENCE [...] B: | | | | | | [employer].Satago/CSPerformed | | | | | | by [employer],[address] | | | | | | [address] Parson [facility] | | | | | | [address] | | | | | | [phone].[employer]. | | | | | | comIsmael [...] [facility] | [address] | [place], [place] | | | UNIV PTH - INTFC | | [address] | | + + + + + [...] [facility] | [address] | [place] [address] | | | SERVICES, CORE | PARK [...] + | [facility] | [address] | [place] [address] | | | SERVICES, CORE | PARK [...] + | [facility] | [address] | [place] [address] | | | SERVICES, SPECIAL | CLARENCE [...] + + | [facility] | [address] | [place] [address] | | | SERVICES, CORE | PARK [...] [place] | | | | | | [address] | | | | | | [phone].aruplab. | | | | | | Ismael [...] [facility] | [address] | [place], [place] | | | UNIV PTH - INTFC | | [address] | | + + + + + [...] | | | LABORATORY | | | MALAG[place] | | | SERVICES, | | | [...] | + + + + + | [facility] | [address] | [place] [address] | | | SERVICES, LYDIA | CLARENCE [...]
--- OUTSIDE RECORDS SUMMARY | ~2020-02-27 | XMS | Encounter Summary ---
Demographics + + + | Address | [address] | | | [place] [address] | + + + | Home Phone [...] [place], [place] | | | | | [address] | | + + + + + | Ellie Vang | ECON | Unknown | | + + + + + Care Team Providers + +------+ + | Care Outbound Sales Specialist Name | Role | Phone | [...] Randell | | | | | | [address] [address] | [address] | | [address], | Ave | | | | | | [address] | [place], [place] | | | | | | [place], [place] | [address] | | | | | | [address] | Phone: | | | | | | Phone: | [phone] | | | | | | [phone] | Fax: | | | | | | Fax: | [phone] | | | | | | [phone] | | +--------+--------+ + + + + Encounter Details +--------+---------+ + + + | Date | Type | Department | Care Team | Description | +--------+---------+ + + + | 08/29/ | Office | Cardiology | Randell Franks, | HTN (hypertension) | | 2013 | Visit | Preventive at [facility] | MD [address] | (Primary Dx); Type 2 | | | | [address] | [place], [place]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 | | | | [facility] | [address] | ([facility]); Morbid | | | | and Healing, | [phone] | obesity (HCC) | | | | [address] | | | | | | [place], [place] | | | | | | [address] | | | | | | [phone] | | | +--------+---------+ + + + [...] [address] | | | | | | [place], [place] | | | | | | [address] | | | | | | [phone] | | | | | | | | +--------+ + + + + | 04/04/ | Telephone-S | Surgery | Orquidea Cristobal, | | | 2019 | cheduled | | SHUTTLER [address] | | | | | | [place], [place] | | | | | | [address] | | | | | | [phone] | | | | | | | [...]
--- OUTSIDE RECORDS SUMMARY | ~2020-02-27 | XMS | Encounter Summary ---
Demographics + + + | Address | [address] | | | [place] [address] | + + + | Home Phone [...] [place], [place] | | | | | [address] | | + + + + + | Ellie Vang | ECON | Unknown | | + + + + + Care Team Providers + +------+ + | Care French Binder Name | Role | Phone | + +------+ + | Fadi Goodrich DO | PCP | | + +------+ + Encounter Details +--------+ + + + + | Date | Type | Department | Care Team | Description | +--------+ + + + + | 10/27/ | Abstract | Digestive Health | Clinic, Surgery | | | 2018 | | [place] at [facility] [address] | | | | | | [facility] | | | | | | for Health and | | | | | | [facility] 2 | | | | | | [place], [place] | | | | | | [address] | | | | | | [phone] | | | +--------+ + + + [...] Ave | | | | | | [place], [place] | | | | | | [address] | | | | | | [phone] | | | | | | | | +--------+ + + + + | 04/04/ | Telephone-S | Surgery | Orquidea Cristobal, | | | 2019 | cheduled | | AUDIENCE DEVELOPMENT MANAGER [address] | | | | | | [facility] [place] | | | | | | [address] | | | | | | [phone] | | | | | | | | +--------+ + + + + documented as of this encounter Visit Diagnoses Not on filedocumented in this encounter"
--- OUTSIDE RECORDS SUMMARY | ~2020-02-27 | XMS | Encounter Summary ---
Demographics + + + | Address | [address] | | | [place] [address] | + + + | Home Phone [...] [place], [place] | | | | | [address] | | + + + + + | Ellie Vang | ECON | Unknown | | + + + + + Care Team Providers + +------+ + | Care Photovoltaic Technician Name | Role | Phone | [...] | | | | | | [place], [place] | | | | | | [address] | | | | | | [phone] | | | +--------+ + + + [...] Ave | | | | | | [place], [place] | | | | | | [address] | | | | | | [phone] | | | | | | | | +--------+ + + + + | 04/04/ | Telephone-S | Surgery | Orquidea Cristobal, | | | 2019 | sherrill | | CLOUD INFRASTRUCTURE ARCHITECT [address] | | | | | | [place], [place] | | | | | | [address] | | | | | | [phone] | | | | | | | | +--------+ + + + + documented as of this encounter Visit Diagnoses Not on filedocumented in this encounter"
--- OUTSIDE RECORDS SUMMARY | ~2020-02-27 | XMS | Encounter Summary ---
Demographics + + + | Address | [address] | | | [place] [address] | + + + | Home Phone [...] [place], [place] | | | | | [address] | | + + + + + | Ellie Vang | ECON | Unknown | | + + + + + Care Team Providers + +------+ + | Care Alteration Tailor Name | Role | Phone | + [...] + + | 05/20/ | Telephone | [facility] | Chilo | Other | | 2019 | | Center at [facility] [address] | MD J[address] | | | | | [address] [facility] | Giles Grace | | | | | [facility] and | [place], [place] | | | | | [facility] 2 | [address] | | | | | [place], [place] | [phone] | | | | | [address] | | | | | | [phone] | | | +--------+ + + + [...] [address] | | | | | | [place], [place] | | | | | | [address] | | | | | | [phone] | | | | | | | | +--------+ + + + + | 04/04/ | Telephone-S | Surgery | Orquidea Cristobal, | | | 2019 | cheduled | | BOARDING SPECIALIST [address] | | | | | | [place], [place] | | | | | | [address] | | | | | | [phone] | | | | | | | | +--------+ + + + + documented as of this encounter Visit Diagnoses Not on filedocumented in this encounter"
--- OUTSIDE RECORDS SUMMARY | ~2020-02-27 | XMS | Encounter Summary ---
Demographics + + + | Address | [address] | | | [place] [address] | + + + | Home Phone [...] + | Katalina Padilla | ECON | [address] | | | | | [place], [place] | | | | | [address] | | + + + + + | Ellie Vang | ECON | Unknown | | + + + + + Care Team Providers + +------+ + | Care Wrapper Cashier Name | Role | Phone | [...] Diabetes & | Morbid | Kathy M, FORENSIC SPECIALIST | [address] | | | | Metabolism | obesity | [address] | Pavilion | | | | | (HCC) | [address], | Loop | | | | | Procedures | [address] | Physician's | | | | | CONSULT TO | [facility] [place] | Pavilion | | | | | ENDO | [address] | Physician's | | | | | [address] | Phone: | Pavilion | | | | | [address] | [phone] | [place], [place] | | | | | | Fax: | [address] | | | | | | [phone] | Phone: | | | | | | | [phone] | | | | | | | Fax: | | | | | | | [phone] | +--------+--------+ + + + + Encounter [...] | | | Center at Physicians | [place], [place] | ([facility]) (Primary Dx); | | | | [address] | [address] | Type 2 diabetes | | | | [address] | [phone] | mellitus ([facility]); AMARA | | | | Physician's Pavilion | | (obstructive sleep | | | | Physician's | | apnea); Morbid | | | | Pavilion [place], | | obesity ([facility]); | | | | [place] [address] | | Edema; GERD | | | | [phone] | | (gastroesophageal | | | | [...] T2DM PCP: Fadi Goodrich DO Referring physician: Ktahy Feldman, KALYAN [address] [place] [address] HPI: Dylan is a 38 y.o. female [...] 9 CREATININE PLASMA (LAB) 0.71 EGFR - BELGIAN >60 EGFR NON -BELGIAN >60 GLUCOSE, PLASMA (LAB) 113 (H) CALCIUM, [...] | | 2019 | Visit | | [address] | | | | | | [place], [place] | | | | | | [address] | | | | | | [phone] | | | | | | | | +--------+ + + + + | 04/04/ | Telephone-S | Surgery | Orquidea Cristobal, | | | 2019 | sherrill | | STERILE INSTRUMENT TECHNICIAN [address] | | | | | | [place], [place] | | | | | | [address] | | | | | | [phone] | | | | | | | [...] | | | PDT | type 2) ([facility]) | results section. | + +--------+ + + + | [place] COLLECTION | Routin | 04/14/2013 | DM type 2 | | | CAPILLARY BLOOD | e | 11:08 AM | (diabetes mellitus, | | | SPECIMEN | | PDT | type 2) ([facility]) | | + +--------+ + + + [...] AMES | [address] | [place], [place] | | | JUSTINE DAWN OF JAKY | [address] | [address] | | | TESTS | | | [...]
--- OUTSIDE RECORDS SUMMARY | ~2020-02-27 | XMS | Encounter Summary ---
[...] + | Katalina Padilla | ECON | [address] | | | | | [place], [place] | | | | | [address] | | + + + + + | Ellie Vang | ECON | Unknown | | + + + + + Care Team Providers + +------+ + | Care Nephrology Social Worker Name | Role | Phone | [...] S | | | | | ([facility]ERLY [facility]) | [address] | [address] | | | | | Procedures | [place], [place] | [place], [place] | | | | | CONSULT TO | [address] | [address] | | | | | CAR | Phone: | Phone: | | | | | PREVENTATIVE | [phone] | [phone] | | | | | [facility] - | Fax: | Fax: | | | | | LIPIDS | [phone] | [phone] | +--------+--------+ + + + + Reason [...] | | 2 diabetes | [place], | [place], [place] | | | | | mellitus | [place] [address] | [address] | | | | | without | Phone: | Phone: | | | | | complication | [phone] | [phone] | | | | | (HCC) | Fax: | Fax: | | | | | Procedures | [phone] | [phone] | | | | | [place] EST | | | | | | [...] | 2017 | Visit | Preventive at [facility] | MD [address] | hypertension | | | | [address] | [facility] [place] | (Primary Dx); Right | | | | [facility] | [address] | heart failure (HCC) | | | | and Healing, | [phone] | | | | | Building [address] | | | | | | [place], [place] | | | | | | [address] | | | | | | [phone] | | | +--------+---------+ + + + [...] 1 tablet by mouth once daily CALCIUM CRB&QQL-G6-PAN48-GENIS ORAL Take 2 tablets by mouth two [...] | | 2019 | Visit | | [address] | | | | | | [place], [place] | | | | | | [address] | | | | | | [phone] | | | | | | | | +--------+ + + + + | 04/04/ | Telephone-S | Surgery | Orquidea Cristobal, | | | 2020 | sherrill | | IN STORE MARKETER [address] | | | | | | [place], [place] | | | | | | [address] | | | | | | [phone] | | | | | | | | +--------+ + + + + documented as of this encounter Visit Diagnoses + + | Diagnosis | + + | Essential hypertension - Primary | + + | Right heart failure (HCC) Congestive heart failure, unspecified | + + documented in this encounter
--- OUTSIDE RECORDS SUMMARY | ~2020-02-27 | XMS | Encounter Summary ---
Demographics + + + | Address | [address] | | | [place] [address] | + + + | Home Phone [...] [place], [place] | | | | | [address] | | + + + + + | Ellie Vang | ECON | Unknown | | + + + + + Care Team Providers + +------+ + | Care Bow Rehairer Name | Role | Phone | + [...] | | | | | | [facility] [place] | | | | | | [address] | | | | | | [phone] | | | | | | | | +--------+ + + + + | 04/04/ | Telephone-S | Surgery | Orquidea Cristobal, | | | 2019 | cheduled | | ASTROBIOLOGIST [address] | | | | | | [place], [place] | | | | | | [address] | | | | | | [phone] | | | | | | | | +--------+ + + + + documented as of this encounter Visit Diagnoses Not on filedocumented in this encounter"
--- OUTSIDE RECORDS SUMMARY | ~2020-02-27 | XMS | Encounter Summary ---
Demographics + + + | Address | [address] | | | [place] [address] | + + + | Home Phone [...] [place], [place] | | | | | [address] | | + + + + + | Ellie Vang | ECON | Unknown | | + + + + + Care Team Providers + +------+ + | Care Russian Language Professor Name | Role | Phone | + +------+ + | Fadi Goodrich DO | PCP | | + +------+ + Encounter Details +--------+ + + + + | Date | Type | Department | Care Team | Description | +--------+ + + + + | 10/12/ | Telephone | Digestive Health | Hernandez Brian, | | | 2012 | | [place] [address] [address] | MD [address] [facility] | | | | | S [facility] | [facility] | | | | | for Health and | [place], [place] | | | | | [facility] 2 | [address] | | | | | [place], [place] | [phone] | | | | | [address] | | | | | | [phone] | | | +--------+ + + + [...] Ave | | | | | | [place], [place] | | | | | | [address] | | | | | | [phone] | | | | | | | | +--------+ + + + + | 04/04/ | Telephone-S | Surgery | Orquidea Cristobal, | | | 2019 | sherrill | | LOAN MANAGER [address] | | | | | | [place], [place] | | | | | | [address] | | | | | | [phone] | | | | | | | | +--------+ + + + + documented as of this encounter Visit Diagnoses Not on filedocumented in this encounter"
--- OUTSIDE RECORDS SUMMARY | ~2020-02-27 | XMS | Encounter Summary ---
Demographics + + + | Address | [address] | | | [place] [address] | + + + | Home Phone [...] [place], [place] | | | | | [address] | | + + + + + | Ellie Vang | ECON | Unknown | | + + + + + Care Team Providers + +------+ + | Care Revenue Liaison Name | Role | Phone | [...] | | | | | | [place], [place] | | | | | | [address] | | | | | | [phone] | | | +--------+ + + + [...] Ave | | | | | | [place], [place] | | | | | | [address] | | | | | | [phone] | | | | | | | | +--------+ + + + + | 04/04/ | Telephone-S | Surgery | Orquidea Cristobal, | | | 2019 | sherrill | | CEMETERY COUNSELOR [address] | | | | | | [place], [place] | | | | | | [address] | | | | | | [phone] | | | | | | | | +--------+ + + + + documented as of this encounter Visit Diagnoses Not on filedocumented in this encounter"
--- OUTSIDE RECORDS SUMMARY | ~2020-02-27 | XMS | Encounter Summary ---
Demographics + + + | Address | [address] | | | [place] [address] | + + + | Home Phone [...] [place], [place] | | | | | [address] | | + + + + + | Ellie Vang | ECON | Unknown | | + + + + + Care Team Providers + +------+ + | Care Fourdrinier Tender Name | Role | Phone | [...] | Event | Medicine Clinic at | [place], [place] | | | | | [facility] | [address] | | | | | [address] | | | | | | [facility] | | | | | | and Healing, | | | | | | [address] | | | | | | [place], [place] | | | | | | [address] | | | | | | [phone] | | | +--------+ + + + [...] [address] | | | | | | [place], [place] | | | | | | [address] | | | | | | [phone] | | | | | | | | +--------+ + + + + | 04/04/ | Telephone-S | Surgery | Orquidea Cristobal, | | | 2019 | cheduled | | MRI SPECIALIST [address] | | | | | | [place], [place] | | | | | | [address] | | | | | | [phone] | | | | | | | | +--------+ + + + + documented as of this encounter Visit Diagnoses Not on filedocumented in this encounter"
--- OUTSIDE RECORDS SUMMARY | ~2020-02-27 | XMS | Encounter Summary ---
Demographics + + + | Address | [address] | | | [place] [address] | + + + | Home Phone [...] [place], [place] | | | | | [address] | | + + + + + | Ellie Vang | ECON | Unknown | | + + + + + Care Team Providers + +------+ + | Care Cloth Finishing Range Operator Name | Role | Phone | [...] [place] | | | | | | [address] | | | | | | [phone] | | | | | | | | +--------+ + + + + | 04/04/ | Telephone-S | Surgery | Orquidea Cristobal, | | | 2019 | cheduled | | FINE ARTS TEACHER [address] | | | | | | [place], [place] | | | | | | [address] | | | | | | [phone] | | | | | | | | +--------+ + + + + documented as of this encounter Visit Diagnoses Not on filedocumented in this encounter"
--- OUTSIDE RECORDS SUMMARY | ~2020-02-27 | XMS | Encounter Summary ---
Demographics + + + | Address | [address] | | | [place] [address] | + + + | Home Phone [...] + | Katalina Padilla | ECON | [address] | | | | | [place], [place] | | | | | [address] | | + + + + + | Ellie Vang | ECON | Unknown | | + + + + + Care Team Providers + +------+ + | Care Wood Pattern Maker Name | Role | Phone [...] | | 2014 | | Center at [facility] [address] | ACNP [address] | | | | | [address] | [place], [place] | | | | | for Health and | [address] | | | | | Healing, [facility] 2 | [phone] | | | | | [place], [place] | | | | | | [address] | | | | | | [phone] | | | +--------+ + + + [...] | | 2019 | Visit | | [address] | | | | | | [place], [place] | | | | | | [address] | | | | | | [phone] | | | | | | | | +--------+ + + + + | 04/04/ | Telephone-S | Surgery | Orquidea Cristobal, | | | 2019 | sherrill | | BUILDING CLEANER [address] | | | | | | [place], [place] | | | | | | [address] | | | | | | [phone] | | | | | | | | +--------+ + + + + documented as of this encounter Visit Diagnoses Not on filedocumented in this encounter"
--- OUTSIDE RECORDS SUMMARY | ~2020-02-27 | XMS | Encounter Summary ---
Demographics + + + | Address | [address] | | | [place] [address] | + + + | Home Phone [...] [place], [place] | | | | | [address] | | + + + + + | Ellie Vang | ECON | Unknown | | + + + + + Care Team Providers + +------+ + | Care Clutch Inspector Name | Role | Phone | [...] | | | Therapy | Morbid | KAIN Bruner | [address] | | | | | obesity with | [address] | | | | | BMI of [address] | for Health | | | | | and over, | [place], [place] | and Healing, | | | | | adult (HCC) | [address] | Building [address], | | | | | Severe | Phone: | 1st Floor | | | | | muscle | | [place], [place] | | | | | deconditioni | Fax: | [address] | | | | | ng | [phone] | Phone: | | | | | Procedures | | [phone] | | | | | PHYSICAL | | Fax: | | | | | THERAPY | | [phone] | | | | | REFERRAL | | | +--------+--------+ + + + + Encounter Details +--------+ + + + + | Date | Type | Department | Care Team | Description | +--------+ + + + + | 02/02/ | Obstetrician/Gynecologist | Digestive Health | Shereen Georges, | Morbid obesity with | | 2017 | | Center at [facility] [address] | ACNP [address] | BMI of 70 and over, | | | | [address] | Ave [place], [place] | adult (HCC) (Primary | | | | for Health and | [address] | Dx); Severe muscle | | | | Healing, Building [address] | | deconditioning | | | | [place], [place] | | | | | | [address] | | | | | | | [...] | | 2019 | Visit | | [address] | | | | | | [place], [place] | | | | | | [address] | | | | | | [phone] | | | | | | | | +--------+ + + + + | 04/04/ | Telephone-S | Surgery | Orquidea Cristobal, | | | 2019 | cheduled | | SACK SEWER MACHINE [address] | | | | | | [place], [place] | | | | | | [address] | | | | | | [phone] | | | | | | | [...]
--- OUTSIDE RECORDS SUMMARY | ~2020-02-27 | XMS | Encounter Summary ---
Demographics + + + | Address | [address] | | | [place] [address] | + + + | Home Phone [...] | Author | [facility] | | | and Jeffana | + + + | Organization | [facility] | | | [...] Team Providers + +------+ + | Care Enamel Buffer Name | Role | Phone | + +------+ + | Jorje Hill | PCP | | + +------+ + Reason for Visit + +--------+ + | Reason | Onset | Comments | | | Date | | + +--------+ + | Referral | 06/10/ | | | | 2019 | | + +--------+ + Encounter Details +--------+ + + + + | Date | Type | Department | Care Team | Description | +--------+ + + + + | 06/10/ | Telephone | [facility] | [facility], | Referral | | 2019 | | INTERVENTIONAL | Mary Ortiz | | | | | RADIOLOGY [address] | Nickel Operator | | | | | [address] | | | | | | [place], [place] | | | | | | [address] | | | | | | [phone] | | | +--------+ + + + [...] encounter Miscellaneous Notes Telephone Encounter - Dharmesh Melchor MD - 06/10/2019 12:58 PM PSTWhile we are happy to preform this procedure, does not require IR If referring doc understands, Can schedule for thursday elephone Encounter - Diana Alcantara Medical Ass iscoreen - 06/10/2019 9:34 AM PSTINTERVENTIONAL RADIOLOGY REFERRAL Reason for Referral: Acute embolism and thrombosis of deep veins of right upper extremity Procedure Requested: PICC line removal Referring Physician: Jorje Hill MD Office contact: [facility] Imaging: none Patient Dx: Acute embolism and thrombosis of deep veins of right upper extremity Patient BMI: 56.81kg/m2 Blood thinners: aspirin 81mg Any Red Flags?: Electronically signed by Diana Alcantara Computer System Specialist at 9:38 AM PSTdocumented in this encounter Plan of Treatment +--------+ + + + + | Date | Type | Specialty | Care Team | Description | +--------+ + + + + | 03/21/ | Virtual | Neurology | Camille De La Paz, | | | 2019 | Office | | [address] | | | | Visit | | [address] | | | | | | [place] [address] | | | | | | [phone] | | | | | | | | +--------+ + + + + | 03/29/ | Office | Cardiology | Sulema Altamirano | | 2019 | Visit | | [address] | | | | | | [address] | | | | | | [place] [address] | | | | | | [phone] | | | | | | | | +--------+ + + + + documented as of this encounter Visit Diagnoses Not on filedocumented in this encounter"
--- OUTSIDE RECORDS SUMMARY | ~2020-02-27 | XMS | Encounter Summary ---
Demographics + + + | Address | [address] | | | [place] [address] | + + + | Home Phone | | + + + | Preferred Language | Unknown | + + + | Marital Status | | + + + | Scientology Affiliation | Unknown | + + + | Race | Unknown | + + + | Ethnic Group | Unknown | + + + Author + + + | Author | [facility] | | | and Jeffana | + + + | Organization | [facility] | | | [...] + | 10/20/ | Orders Only | [facility] | Dharmesh Escobar, | | | 2016 | | NEPHROLOGY JESUS | BATTERY LOADER [address] | | | | | [address] | [address] | | | | | [address] [place], [place] | [place], [place] | | | | | [address] | [address] | | | | | [phone] | [phone] | | | | | | | [...] | | | | | | [place] [address] | | | | | | [phone] | | | | | | | | +--------+ + + + + | 03/29/ | Office | Cardiology | Sulema Altamirano | | | 2019 | Visit | | [address] | | | | | | [address] | | | | | | [place] [address] | | | | | | [phone] | | | | | | | [...]
--- OUTSIDE RECORDS SUMMARY | ~2020-02-27 | XMS | Encounter Summary ---
Demographics + + + | Address | [address] | | | [place] [address] | + + + | Home Phone [...] + | Katalina Padilla | ECON | [address] | | | | | [place], [place] | | | | | [address] | | + + + + + | Ellie Vang | ECON | Unknown | | + + + + + Care Team Providers + +------+ + | Care Finish Cleaner Name | Role | Phone | [...] from Patient; | | 2017 | | [place] [address] | MD [address] | Postoperative | | | | Ave Mailcode: CH4S | [place], [place] | infection | | | | [facility] | [address] | | | | | and Healing, | [phone] | | | | | [place] [address] [facility] | | | | | | [place], [place] | | | | | | [address] | | | | | | [phone] | | | +--------+ + + + [...] [address] | | | | | | [place], [place] | | | | | | [address] | | | | | | [phone] | | | | | | | | +--------+ + + + + | 04/04/ | Telephone-S | Surgery | Orquidea Cristobal, | | | 2019 | cheduled | | ENGRAVER SET UP OPERATOR [address] | | | | | | [facility] [place] | | | | | | [address] | | | | | | [phone] | | | | | | | | +--------+ + + + + documented as of this encounter Visit Diagnoses Not on filedocumented in this encounter"
--- OUTSIDE RECORDS SUMMARY | ~2020-02-27 | XMS | Encounter Summary ---
Demographics + + + | Address | [address] | | | [place] [address] | + + + | Home Phone [...] [place], [place] | | | | | [address] | | + + + + + | Ellie Vang | ECON | Unknown | | + + + + + Care Team Providers + +------+ + | Care Senior Sql Developer Name | Role | Phone | [...] | | | | | obesity | [place], [place] | | | | | | ([facility]) | [address] | | | | | | Procedures | Phone: | | | | | | PHYSICAL | | | | | | | THERAPY | Fax: | | | | | | REFERRAL | [phone] | | +--------+--------+ + + + + Encounter Details +--------+ + + + + | Date | Type | Department | Care Team | Description | +--------+ + + + + | 06/22/ | Single Wire Saw Operator | Digestive Health | Ion Pandey, | Pre-op evaluation | | 2016 | | Center at [facility] [address] | [address] | (Primary Dx); Morbid | | | | [address] | [facility] [place] | obesity (HCC) | | | | for Health and | [address] | | | | | Healing, [address] | | | | | | [place], [place] | | | | | | [address] | | | | | | [phone] | | | +--------+ + + + [...] Ave | | | | | | [place], [place] | | | | | | [address] | | | | | | [phone] | | | | | | | | +--------+ + + + + | 04/04/ | Telephone-S | Surgery | Orquidea Cristobal, | | | 2019 | cheduled | | CSR TECHNICIAN [address] | | | | | | [facility] [place] | | | | | | [address] | | | | | | [phone] | | | | | | | | +--------+ + + + + documented as of this encounter Visit Diagnoses + + | Diagnosis | + + | Pre-op evaluation - Primary Preoperative examination, unspecified | + + | Morbid obesity (HCC) Morbid obesity | + + documented in this encounter"
--- OUTSIDE RECORDS SUMMARY | ~2020-02-27 | XMS | Encounter Summary ---
Demographics + + + | Address | [address] | | | [place] [address] | + + + | Home Phone | | + + + | Preferred Language | Unknown | + + + | Marital Status | | + + + | Islam Affiliation | Unknown | + + + [...] + + | 10/26/ | Virtual | [facility] | Sulema Altamirano | Chronic diastolic | | 2020 | Office | CARDIOLOGY [facility] | [address] | heart failure (HCC) | | | Visit | [address] | [address] | (Primary Dx); | | | | [address] | [place] [address] | History of sinus | | | | [place] | [phone] | tachycardia; History | | | | [address] | | of stroke; HTN, | | | | [phone] | | goal below 130/80; | | [...] Elzbieta Cristina has independently initiated the visit. Elzbeita Cristina verbally confirmed her choice to initiate care by, and consents to receive care by Telephone. Participants: Patient All medical advice and/or management options were discussed 10/28/2019. 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 Fu, Her current and previous testing [...] to lose weight. She followed up with assembler and tester electronics at [facility], Dr. Franks, who reported that her [...] weight loss. Hypothyroidism,followed by Dr. Kat alva, assembler and tester electronics at [facility]) . Denies excessive thirst or hunger. [...] knee pain and hernia pain Lives in [facility] her mother who smokes. . Sister is child care attendant. Grandchildren ages 4 and 7 live with he r daughter and son-in-law. Disabled , on disability .01/24/2019: working with [employer] to get her own place. Outpatient Medications Prior to Visit Medication Sig Dispense Refill ALPRAZolam (XANAX) 0.5 mg tablet Take 0.5-1 mg by mouth 3 times daily as needed. ascorbic acid (VITAMIN C) 500 MG tablet Take 1,000 mg by mouth Daily. atenolol (TENORMIN) 50 mg tablet Take 1 tablet by mouth nightly. 30 tablet 11 Wsyaefn-Zujkbdeby-Zndkgjc D (CITRACAL CALCIUM+D PO) Take 4 tablets [...] mL every day by injection route. rizatriptan (MAXALT-DENTAL ASSISTANT MEDICAL ASSISTANT) 5 mg disintegrating tablet Take 5 mg by mouth as needed for Mi graine. May repeat in 2 hours if needed spironolactone (ALDACTONE) 50 mg tablet Take 50 mg by mouth Daily. thyroid (MICROBIOLOGICAL LABORATORY TECHNICIAN THYROID) 30 mg tablet MICROBIOLOGICAL LABORATORY TECHNICIAN Thyroid 30 mg tablet TAKE ONE [...] , and aortic arch normal Echo: 01/02/2016 ([facility]): TDS, cardiac chamber dimensions grossly NML, LVEF >70%, rodriguez tolic function normal for patient. Unable to assess segmental wall motion. RV grossly norm al. Aortic valve sclerotic, no As/AI. Mitral and tricuspid valves grossly normal. Trace T R. No pericardial effusion VASCULAR TESTING AND PROCEDURES Left lower extremity DVT, presumed PE: 10/2015 [facility]. treated with heparin drip and Coumadin 10 in hospital, with Coumadin 6 months as outpatient, ASA 81 mg continued Venous US: right leg, 04/28/2016: No evidence of DVT. EKG EKG 10/27: ([facility]) Normal sinus rhythm. Normal EKG. Rate 93 bpm, IL 172 ms, QRS 90 ms, QTC 465 ms personally reviewed by me in the office today) EK02/05: Sinus tachycardia, otherwise normal. Rate 160 bpm, IL 174 ms, QRS 74 ms, QTC 451 ms (personally reviewed by me in the office today and no significant change seen fro m EKG done in October 2016 except for faster heart rate) EK04/26/2018: Normal sinus rhythm, rate 74 bpm, IL 182 ms, QRS 96 ms, QTC 472 ms, alexandru genao personally reviewed by me, and compared to previous EKG, heart rate is now better controll ed, otherwise similar morphology EK04/28/2019: Normal sinus rhythm, right axis. Rate 74 bpm, IL 170 ms, QRS 88 ms, QTC 45 [...] elevated, requiring increased calcium dosing from her assembler and tester electronics. She is being closely monitored with her [...] she needs to be retested for sleep quality improvement engineer ea given her large weight loss, and [...] for continuity of care purp trina MARKS [facility] 10/28/2019 Dot han in this encounter Plan of Treatment +--------+ + + + + | Date | Type | Specialty | Care Team | Description | +--------+ + + + + | 03/21/ | Virtual | Neurology | Camille De La Paz, | | | 2019 | Office | | [address] | | | | Visit | | [address] | | | | | | [place] [address] | | | | | | [phone] | | | | | | | | +--------+ + + + + | 03/29/ | Office | Cardiology | Sulema Altamirano | | | 2019 | Visit | | [address] | | | | | | [address] | | | | | | [place] [address] | | | | | | [phone] | | | | | | | [...]
--- OUTSIDE RECORDS SUMMARY | ~2020-02-27 | XMS | Encounter Summary ---
Demographics + + + | Address | [address] | | | [place] [address] | + + + | Home Phone [...] [place], [place] | | | | | [address] | | + + + + + | Ellie Vang | ECON | Unknown | | + + + + + Care Team Providers + +------+ + | Care Title Insurance Sales Representative Name | Role | Phone [...] [address] | | | | | | [place], [place] | | | | | | [address] | | | | | | [phone] | | | | | | | | +--------+ + + + + | 04/04/ | Telephone-S | Surgery | Orquidea Cristobal, | | | 2019 | cheduled | | DIRECTOR OF PUBLIC WORKS [address] | | | | | | [place], [place] | | | | | | [address] | | | | | | [phone] | | | | | | | | +--------+ + + + + documented as of this encounter Visit Diagnoses Not on filedocumented in this encounter"
--- OUTSIDE RECORDS SUMMARY | ~2020-02-27 | XMS | Encounter Summary ---
Demographics + + + | Address | [address] | | | [place] [address] | + + + | Home Phone [...] [place], [place] | | | | | [address] | | + + + + + | Ellie Vang | ECON | Unknown | | + + + + + Care Team Providers + +------+ + | Care Nurse Rn Bsn Name | Role | Phone [...] | 2019 | | Center at [facility] [address] | AGACNP [address] | | | | | [address] | [place], [place] | | | | | [facility] and | [address] | | | | | [facility] 2 | [phone] | | | | | [place], [place] | | | | | | [address] | | | | | | [phone] | | | +--------+ + + + [...] [address] | | | | | | [place], [place] | | | | | | [address] | | | | | | [phone] | | | | | | | | +--------+ + + + + | 04/04/ | Telephone-S | Surgery | Orquidea Cristobal, | | | 2019 | cheduled | | COMMUNICATION ENGINEER [address] | | | | | | [place], [place] | | | | | | [address] | | | | | | [phone] | | | | | | | | +--------+ + + + + documented as of this encounter Visit Diagnoses Not on filedocumented in this encounter"
--- OUTSIDE RECORDS SUMMARY | ~2020-02-27 | XMS | Encounter Summary ---
Demographics + + + | Address | [address] | | | [place] [address] | + + + | Home Phone [...] [place], [place] | | | | | [address] | | + + + + + [...] | 08/28/ | Lab | Laboratory at [facility] | | Type 2 diabetes | | 2014 | | [address] | | mellitus (HCC) | | | | [facility] | | [facility] | | and He[facility], | | | | | | Building [address] | | | | | | [place], [place] | | | | | | [address] | | | | | | [phone] | | | +--------+------+ + + + [...] Ave | | | | | | [place], [place] | | | | | | [address] | | | | | | [phone] | | | | | | | | +--------+ + + + + | 04/04/ | Telephone-S | Surgery | Orquidea Cristobal, | | | 2019 | cheduled | | 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
--- OUTSIDE RECORDS SUMMARY | ~2020-02-27 | XMS | Encounter Summary ---
Demographics + + + | Address | [address] | | | [place] [address] | + + + | Home Phone [...] [place], [place] | | | | | [address] | | + + + + + | Ellie Vang | ECON | Unknown | | + + + + + Care Team Providers + +------+ + | Care Power Generation Equipment Repairer Name | Role | Phone | + +------+ + | Fadi Goodrich DO | PCP | | + +------+ + Encounter Details +--------+------+ + + + | Date | Type | Department | Care Team | Description | +--------+------+ + + + | 05/27/ | Lab | Laboratory at [facility] | | History of Frandy-en-Y | | 2017 | | [address] | | gastric bypass; | | | | [facility] | | Ventral hernia | | | | and Healing, | | without obstruction | | | | [address] | | or gangrene; Mixed | | | | [place], [place] | | hyperlipidemia; | | | | [address] | | 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[phone] | | type 2 without | | [...] Ave | | | | | | [place], [place] | | | | | | [address] | | | | | | [phone] | | | | | | | | +--------+ + + + + | 04/04/ | Telephone-S | Surgery | Orquidea Cristobal, | | | 2019 | cheduled | | TECHNICAL CABLE JOINTER [address] | | | | | | [place], [place] | | | | | | [address] | | | | | | [phone] | | | | | | | [...] | [facility] | [address] | [place] [address] | | | SERVICES, LYDIA | CLARENCE [...] | [facility] | [address] | [place] [address] | | | SERVICES, CORE | PARK [...] (H)Comment: Hgb A1C | <5.7 % | [facility] | | | A1C | Interpretive | [...] | [facility] | | considered for monitoring rn long term care glycemic control in patients with: | [...] | + + + + + | [employer] | [address] | [place] [address] | | | SERVICES, SPECIAL | PARK [...] | | | | determined by [facility] | | | | | | Laboratories. See | | | | | | Compliance Statement B: | | | | | | [employer] | | | | | | by [employer] Artist,500 | | | | | | Liliana Martinez [facility],[place] | | | | | | [address] | | | | | | [phone][employer]. | | | | | | [...] [facility] | [address] | [place], [place] | | | [facility] | | [address] | | + + + + + [...] | [facility] | [address] [facility] [address] | [place] [address] | | | SERVICES, LYDIA | CLARENCE [...] [facility] | [address] | [place] [address] | | | SERVICES, CORE | CLARENCE [...] [facility] | [address] | [place] [address] | | | SERVICES, CORE | PARK [...] [facility] | [address] | [place] [address] | | | SERVICES, CORE | CLARENCE [...] [facility] | [address] | [place] [address] | | | SERVICES, CORE | PARK [...] | + + + + + | [facility] | [address] | [place] [address] | | | SERVICES, CORE | PARK [...]
--- OUTSIDE RECORDS SUMMARY | ~2020-02-27 | XMS | Encounter Summary ---
Demographics + + + | Address | [address] | | | [place] [address] | + + + | Home Phone [...] + | Katalina Padilla | ECON | [address] | | | | | [place], [place] | | | | | [address] | | + + + + + | Ellie Vang | ECON | Unknown | | + + + + + Care Team Providers + +------+ + | Care Surgery Aide Name | Role | Phone | [...] | REPAIR | | | | [facility] | [address] | | | | | Hospital Admitting | [place], [place] | | | | | Desk Located on the | [address] | | | | | 9th floor | [phone] | | | | | [place], [place] | | | | | | [address] | | | +--------+---------+ + + + [...] the gallo. She was transitioned off her INTERVENTIONAL RADIOLOGY TECH on POD1. She di d have difficulty [...] condition. She will follow up at the [facility] with Dr. Tiwari in 2- [...] by mouth once daily at bedtime. CALCIUM [id number]-[id number]-GENIS ORAL Take 2 tablets by mouth two [...] daily. ASK your doctor about these medications SHOP FITTER THYROID 30 mg Tab tab Generic drug: [...] the prescribed narcotic-opioid (e.g. oxycodone, hydrocodone, Vicodin, Lovington, Percocet, Dilaudid) as needed. However, Vicodin/Lovington and Percocet contain acetam inophen in the [...] Narcotic-opioid pain medications (e.g. oxycodone, hydrocodone, Vicodin, Lovington, Percocet, Di laudid) can be constipating, therefore you should take a stool softener on the same day as s tarting your narcotic pain medicine. Options include: Milk of Magnesia: 2 Tablespoons Twice daily Colace (=Docusate): 1 pill Twice daily Miralax: 1 Tablespoon (17 grams) daily (check bottle for mixing instructions) While these are some recommendations, any rfzu-sny-hihpbzr stool softener should work, and generics are [...] and plan of care. JONES TIWARI MD [facility] [address] [place] [address] documented in this encounter Discharge Instructions Discharge [...] hours by calling the surgery office at [phone]. After hours, weekends and holidays, you may call the hospital eyelet machine operator at [phone] and have the contact center engineer [facility] for general surgery paged. Discharge Instr [...] identified. Postopera tively she recovered on the galol. She was transitioned off her INTERVENTIONAL RADIOLOGY TECH on POD1. She did have dif ficulty [...] She will follow up at [facility] with Dr. Tiwari in weeks. [...] the prescribed narcotic-opioid (e.g. oxycodone, hydrocodone, Vicodin, Lovington, Percocet, Dilaudid) as needed. However, Vicodin/Lovington and Percocet contain acetam inophen in the [...] Narcotic-opioid pain medications (e.g. oxycodone, hydrocodone, Vicodin, Lovington, Percocet, Di laudid) can be constipating, therefore you should take a stool softener on the same day as s tarting your narcotic pain medicine. Options include: Milk of Magnesia: 2 Tablespoons Twice daily Colace (=Docusate): 1 pill Twice daily Miralax: 1 Tablespoon (17 grams) daily (check bottle for mixing instructions) While these are some recommendations, any vphp-ylp-yxbgbez stool softener should work, and generics are fine to use. Increase your fluids, especially your intake of water Increase your activity. Walk frequently. ANTICOAGULATION: We recommend you make an appointment to be seen in your local anticoagulation clinic on Thu08/25/19 to recheck your INR and for ongoing management of your warfarin. FOLLOW-UP: Please call Dr. Tiwari's office ([phone]) to schedule a follow-up appointment for 2-3 [...] | | 0 | | | | CRB&XOH-Q4-[id number]-GEN | mouth two times | | | [...] + + +---------+ + + | thyroid (SHOP FITTER | Take 30 mg by mouth | [...] assist PRN. Anticipate discharge michelle Chandler MD [facility], PGY-1 [employer] Pager: [phone] signed by Jones Tiwari MD at 08/22/2019 [...] dc in 2-3 days Gadiel Chandler MD [facility], PGY-1 [employer] Pager: [phone] Associated attestation - Jones Tiwari MD - 08/21/2019 9:57 AM PSTI performed a hist ory and physical examination of the patient and discussed her management with the resident. I reviewed the resident s note and agree with the documented findings and plan of care. JONES TIWARI MD [facility] [address] [place] [address] Valencia Zamora MD - 08/20/2019 8:42 AM [...] well. - ruiz out today - dc INTERVENTIONAL RADIOLOGY TECH - ppx lovenox today - therapeutic lovenox [...] care -Multimodal pain control Joselyn Everett MD [facility] General Surgery PGY1 [id number] Gadiel Armstrong MD - 08/19/2019 12:34 PM [...] hernia repair with mesh Gadiel Chandler MD [facility], PGY-1 [employer] Pager: [phone] documented in this encounter Plan of Treatment +--------+ + + + + | Date | Type | Specialty | Care Team | Description | +--------+ + + + + | 03/22/ | Office | Cardiology | Aly Franks, | | | 2019 | Visit | | MD [address] | | | | | | [place], [place] | | | | | | [address] | | | | | | [phone] | | | | | | | | +--------+ + + + + | 04/04/ | Telephone-S | Surgery | Orquidea Cristobal, | | | 2019 | cheduled | | SLIPCOVER CUTTER [address] | | | | | | [place], [place] | | | | | | [address] | | | | | | [phone] | | | | | | | [...] | [facility] | [address] | [place] [address] | | | LYDIA RANGEL | CLARENCE [...] | [facility] | [address] | [place] [address] | | | SERVICES, CORE | PARK [...] | [facility] | [address] | [place] [address] | | | SERVICES, CORE | CLARENCE [...] (H) | 70 - 99 mg/dL | [facility] - | | | GLUCOSE, [...] AMES | [address] | [place], [place] | | | L[place]PEZ POINT OF CARE | [address] | [address] | | | TESTS | | | [...] MARQUAM | [address] | [place], [place] | | | JUSTINE DAWN OF CARE | [address] | [address] | | | TESTS | | | [...] [facility] | [address] | [place] [address] | | | SERVICES, | [address] [...] [facility] | [address] | [place] [address] | | | SERVICES, | [address] [...] - [place] | [address] | [place], [place] | | | L[place]PEZ POINT OF CARE | [address] | [address] | | | TESTS | | | [...] | [facility] | | | GRAVITY | [employer] performed by | | LABORATORY | | [...] | + + + + + | [facility] | [address] | [place] [address] | | | SERVICES, CORE | CLARENCE [...] [facility] | [address] | [place] [address] | | | SERVICES, | [address] [...] [facility] | [address] | [place] [address] | | | SERVICES, CORE | PARK [...] [facility] | [address] | [place] [address] | | | SERVICES, CORE | PARK [...] [facility] | [address] | [place] [address] | | | SERVICES, CORE | PARK [...] | + + + + + | [facility] | [address] | [place] [address] | | | SERVICES, CORE | CLARENCE [...] | | | LABORATORY | | | [place]ANI | | | SERVICES, | | | [...] | + + + + + | [facility] | [address] | [place] [address] | | | SERVICES, [facility] | [address] | | | + + + + + ED INFORMATION EXCHANGE (08/18/2019 1:47 PM PST) + + | Specimen | + + | | + + + + + | Narrative | Performed At | + + + | [facility]LECT[facility]?NOTIFICATION?08/18/2019 13:47?DYLAN ROMERO?MRN: | [facility] | | [id number] Criteria Met 5 Visits In 12 Months Has | MEDICAL | | Guidelines PDMP Security and Safety No recent Security Events | [employer] | | currently on file ED Care Guidelines from [employer] - Ezra | | | Last Updated: 12/06/18 9:53 AM Care Coordination: Receiving | | | mental health services with [employer].? Please contact [employer] for | | | mental health concerns.? Sarah/Toni Centeno: [phone]? | | | Kishan: [phone].? These are guidelines and the provider | | | should exercise clinical judgment when providing care. Care | | | History Medical/Surgical 05/24/19 12:00 AM [facility] | | | Hospital PATIENT HAS AN APT ON 06/16/[address] HYLTON. | | | 05/11/19 12:00 AM [facility] Patient is | | | currently established with [facility]. If patient is seen in | | | the ED during business hours. Please contact CHWs at [facility] | | | Clinic. Care [...] care. 08/23/18 12:00 AM | | | [facility] PATIENT HAS A PCP APT TO ESTABLISH | | | CARE ON 10/04/18 @ 10:00AM WITH DR HYLTON. Flags | | | [place] Disparity [place] - [place] ([place] | | | Dis[place]ity [place]) to help support Medicaid members with mental | | | illness. [facility] uses claims data with a [...] | are updated weekly. / Attributed By: [facility] ([facility]) / | | | [...] SUDOGEST 12 HOUR 120 MG CAPLET 30 Silith.IO, JR. 0 | | | 2019-06-14 ALPRAZOLAM 1 MG TABLET 60 WINSTON JOSE 4 0 2019-06-03 | | | SUDOGEST 12 HOUR 120 MG CAPLET 30 Silith.IO, JR. 0 2019-05-27 | | | PHENTERMINE [...] (12 | | | mo.) Facility Visits [facility] 1 Count Includes [facility] and | | | [facility] 2 [facility] 7 Total 10 Note: | | | Visits indicate total known visits. Recent Emergency Department | | | Visit Summary Date Facility City State Type Diagnoses or Chief | | | Complaint Aug 18, 2019 [facility] [place] | | | [place] Emergency 10,800. amr [facility] | | [place] Emergency intermediate manager (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 | | | Anxiety disorder, unspecified Cellulitis of abdominal wall | | | Acute embolism and thrombosis of deep veins of r up extrem | | | Nicotine dependence, unspecified, uncomplicated Migraine, unsp, | | | not intractable, without status migrainosus Unspecified | | | abdominal pain Allergy status to oth drug/meds/biol subst status | | | Other intermediate (current) drug therapy Allergy status to | | | penicillin Jun 19, 2019 [facility]. [place] Emergency | | | intermediate manager (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 Prsnl hx of [...] unspecified Jun 01, 2019 | | [facility] [place] Emergency Headache Allergy | | | status to penicillin Anxiety disorder, unspecified | | | Obesity, unspecified Migraine, unsp, not intractable, without | | | status migrainosus Other intermediate (current) drug therapy | | | Allergy status to oth drug/meds/biol subst status intermediate manager | | | (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 intermediate manager (current) use of | | | aspirin [facility] [place] [facility] | | | Anxiety disorder, unspecified Acute embolism and thrombosis of | | | deep veins of r up extrem Allergy status to penicillin | | | Other intermediate (current) drug therapy Pain in right arm | | | intermediate manager (current) use of aspirin Allergy status to oth | | | drug/meds/biol subst status May 20, [address] [facility] | | | [place] Emergency Generalized abdominal pain Allergy | | | status to oth drug/meds/biol subst status Unspecified abdominal | | | pain Anxiety disorder, unspecified Other chronic pain | | | Allergy status to penicillin detention (current) use of | | | aspirin Prsnl hx of TIA (TIA), and cereb infrc w/o resid | | | deficits Other supervisor intermediates (current) drug therapy May 13, | | | 2019 [facility] [place] Emergency | | | [...] and cereb infrc w/o resid deficits Other supervisor intermediates (current) | | | drug therapy Allergy status to penicillin December 03, 2018 [facility] | | | [facility]. [place] Emergency RIGHT LEG PAIN DUE TO FALL | | | Strain of unsp musc/tend at lower leg level, right leg, init | | | Aug 22, [address] [facility] [place] Emergency Other | | | supervisor intermediates (current) drug therapy Upper abdominal pain, | | | unspecified Bariatric surgery status Allergy status to oth | | | drug/meds/biol subst status Noninfective gastroenteritis and | | | colitis, unspecified Obesity, unspecified Anxiety | | | disorder, unspecified intermediate manager (current) use of aspirin | | | Allergy status to penicillin Personal history of pulmonary | | | embolism Recent Inpatient Visit Summary No recorded | | | inpatient visits. Care Team Provider Specialty Phone Fax Service | | | Dates Eagle Nino CHW Community Health Worker | | | Jul 03, 2019 - Current JONES DAVISON D.M.D. Dentist: | | | Emergency Communications Officer May 23, 2019 - | | | Current Rob Tilley Manager Intelligence/Backroom Associate ([phone] | | | [phone] Mar 27, 2018 - Current Bernard Hylton MD Internal | | | Medicine: Pulmonary Disease Aug 23, 2018 - Current | | | [employer] Portal This patient has registered at the Count Includes [facility] | | | [facility] Emergency Department For more information | | | visit: | | | [email or web address] | | | [email or web address] a PLEASE NOTE: 1. Any care recommendations [...] or completeness of information provided. ? 2020 amaysim | | | [employer]. - [email or web address] | | + + + + + [...] on fileED Care Guidelines | | from [employer] - [employer] Updated: 12/06/18 9:53 AM Care Coordination:Receiving | | mental health services with [employer].? Please contact [employer] for mental health | | concerns.? Sarah/Toni Pending Sale To [facility]: [phone]? [place]: [phone].?These are | | guidelines and the provider should exercise clinical judgment when providing care.Care | | HistoryMedical/Jiglofez02/29/19 12:00 AM [facility] PATIENT HAS AN APT | | ON 06/16/[address] HYLTON.05/11/19 12:00 AM [facility] Patient is | | currently established with [facility]. If patient is seen in the ED during | | business hours. Please contact CHWs at [facility].Care Recommendation:This | | patient has had [...] when providing | | care.08/23/18 12:00 AM [facility] PATIENT HAS A PCP APT TO ESTABLISH CARE | | ON 10/04/18 @ 10:00AM WITH DR HYLTON. Flags [place] Disparity [place] - [place] has | | developed a flag ([place] Dis[place]) to help support Medicaid members with | | mental illness. [facility] uses claims data with a [...] | | updated weekly. / Attributed By: Count Includes [facility] ([facility]) / Attributed On: | | [...] 0 E.D. Visit Count (12 mo.)Facility Visits [facility] 1 Count Includes [facility] | | [facility] [employer] 2 [facility] 7 Total 10 Note: Visits indicate | | total known visits. Recent Emergency Department Visit SummaryDate Facility [facility] | | Type Diagnoses or Chief Complaint Aug 18, 2019 [facility] | | [place] Emergency 10,800. amr Jun 25, 2019 [facility] [place] Emergency | | detention (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 Anxiety disorder, unspecified | | Cellulitis of abdominal wall Acute embolism and thrombosis of deep veins of r up | | extrem Nicotine dependence, unspecified, uncomplicated Migraine, unsp, not | | intractable, without status migrainosus Unspecified abdominal pain Allergy status | | to oth drug/meds/biol subst status Other intermediate (current) drug therapy Allergy | | status to penicillin Jun 19, 2019 [facility] [place] Emergency detention | | (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 Prsnl [...] unspecified Jun 01, 2019 | | [facility] [place] Emergency Headache Allergy status to penicillin | | Anxiety disorder, unspecified Obesity, unspecified Migraine, unsp, not | | intractable, without status migrainosus Other intermediate (current) drug therapy | | Allergy status to oth drug/meds/biol subst status intermediate manager (current) use of | | anticoagulants intermediate manager (current) use of aspirin May 23, 2019 [facility] | | [place] Emergency Anxiety disorder, unspecified Acute embolism and thrombosis of | | deep veins of r up extrem Allergy status to penicillin Other intermediate (current) | | drug therapy Pain in right arm detention (current) use of aspirin Allergy | | status to oth drug/meds/biol subst status May 20, 2019 [facility] [place] | | Emergency Generalized abdominal pain Allergy status to oth drug/meds/biol subst | | status Unspecified abdominal pain Anxiety disorder, unspecified Other chronic | | pain Allergy status to penicillin intermediate manager (current) use of aspirin Prsnl hx | | of TIA (TIA), and cereb infrc w/o resid deficits Other intermediate (current) drug | | therapy May 13, 2019 Count Includes [facility] and [facility] [place] Emergency | | 10,800. A303 18,400. Bariatric surgery status 18,400. Ventral hernia without | | obstruction or gangrene 18,400. Nausea with vomiting, unspecified 18,400. | | Unspecified abdominal pain 18,400. Nonspecific mesenteric lymphadenitis May 10, 2019 | | [facility] [place] Emergency Nausea with vomiting, unspecified Solitary | | pulmonary nodule Anxiety disorder, unspecified Ventral hernia without obstruction | | or gangrene Unspecified abdominal pain Diarrhea, unspecified Allergy status to | | oth drug/meds/biol subst status Prsnl hx of TIA (TIA), and cereb infrc w/o resid | | deficits Other intermediate (current) drug therapy Allergy status to penicillin November | | 2018 [facility]. [place] Emergency RIGHT LEG PAIN DUE TO FALL | | Strain of unsp musc/tend at lower leg level, right leg, init Aug 22, [address] [facility] [address] | | [facility] [place] Emergency Other supervisor intermediates (current) drug therapy Upper | | abdominal pain, unspecified Bariatric surgery status Allergy status to oth | | drug/meds/biol subst status Noninfective gastroenteritis and colitis, unspecified | | Obesity, unspecified Anxiety disorder, unspecified intermediate manager (current) use of | | aspirin Allergy status to penicillin Personal history of pulmonary embolism | | Recent Inpatient Visit SummaryNo recorded inpatient visits. Care TeamProvider Specialty | | Phone Fax Service Dates Eagle Nino CHW Community Health Worker | | Jul 03, 2019 - Current JONES DAVISON D.M.D. Dentist: Emergency Communications Officer [phone] | | [phone] May 23, 2019 - Current Rob Tilley Manager Intelligence/Care | | Coordinator Mar 27, 2018 - Current Bernard Hylton MD Internal Medicine: | | Pulmonary Disease Aug 23, 2018 - Current [employer] [place] patient has registered | | at the Count Includes [facility] and [facility] [place] Emergency Department For more information | | visit: [email or web address] | | PLEASE NOTE: 1. Any care [...] completeness of information | | provided.? 2019 [employer]. - [email or web address] | | Allergy status to oth drug/meds/biol subst status | | Other intermediate (current) drug therapy | | Allergy status to penicillin | | | |Jun 19, 2019 [facility] [place] Emergency | | detention (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 | | Prsnl [...] | | | |Jun 01, 2019 [facility] [facility] [place] Emergency | | Headache | | Allergy status to penicillin | | Anxiety disorder, unspecified | | Obesity, unspecified | | Migraine, unsp, not intractable, without status migrainosus | | Other supervisor intermediates (current) drug therapy | | Allergy status to oth drug/meds/biol subst status | | intermediate manager (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 | | intermediate manager (current) use of aspirin | | | |May 23, 2019 [facility] [place] Emergency | | Anxiety disorder, unspecified | | Acute embolism and thrombosis of deep veins of r up extrem | | Allergy status to penicillin | | Other supervisor intermediates (current) drug therapy | | Pain in right arm | | detention (current) use of aspirin | | Allergy status to oth drug/meds/biol subst status | | | |May 20, 2019 [facility] [place] Emergency | | Generalized abdominal pain | | Allergy status to oth drug/meds/biol subst status | | Unspecified abdominal pain | | Anxiety disorder, unspecified | | Other chronic pain | | Allergy status to penicillin | | intermediate manager (current) use of aspirin | | Prsnl hx of TIA (TIA), and cereb infrc w/o resid deficits | | Other intermediate (current) drug therapy | | | |May 13, 2019 Count Includes [facility] and [facility] [place] Emergency | | 10,800. A303 | | 18,400. Bariatric surgery status | | 18,400. Ventral hernia without obstruction or gangrene | | 18,400. Nausea with vomiting, unspecified | | 18,400. Unspecified abdominal pain | | 18,400. Nonspecific mesenteric lymphadenitis | | | |May 10, 2019 [facility] [place] Emergency | | Nausea with vomiting, unspecified | | Solitary pulmonary nodule | | Anxiety disorder, unspecified | | Ventral hernia without obstruction or gangrene | | Unspecified abdominal pain | | Diarrhea, unspecified | | Allergy status to oth drug/meds/biol subst status | | Prsnl hx of TIA (TIA), and cereb infrc w/o resid deficits | | Other intermediate (current) drug therapy | | Allergy status to penicillin | | | |December 03, 2018 [facility]. [place] Emergency | | RIGHT LEG PAIN DUE TO FALL | | Strain of unsp musc/tend at lower leg level, right leg, init | | | |Aug 22, 2018 [facility] [place] Emergency | | Other supervisor intermediates (current) drug therapy | | Upper abdominal pain, unspecified | | Bariatric surgery status | | Allergy status to oth drug/meds/biol subst status | | Noninfective gastroenteritis and colitis, unspecified | | Obesity, unspecified | | Anxiety disorder, unspecified | | detention (current) use of aspirin | | Allergy status to penicillin | | Personal history of pulmonary embolism | | | | | | | |Recent Inpatient Visit Summary | |No recorded inpatient visits. | | | |Care Team | |Provider Specialty Phone Fax Service Dates | |Eagle Nino CHW Community Health Worker Jul 03, 2019 - Current | |JONES DAVISON D.M.D. Dentist: Emergency Communications Officer May 23 019 - Current | |Rob Tilley Manager Intelligence/Backroom Associate Mar 27, 2018 - Current | |Bernard Hylton MD Internal Medicine: Pulmonary Disease Aug 23, 2018 - Current | | | |[employer] Portal | |This patient has registered at the Count Includes [facility] and [facility] Emergency Departmen t | |For more information visit: [email or web address] | |PLEASE NOTE: | | 1. Any [...] information provided. | | | |? 2020 [employer]. - [email or web address] | + + + + + + + | Performing | Address | City/[facility]/Zipcode | Phone Number | | Organization | | | | + + + + + | [employer] | [address] | [place], [place] | [phone] | | [employer] | [address] | [address] | | + + + + + [...] | | | | | NEEDED, Starting [facility] 08/18/19 at | | AM PST [...] | | First dose on [facility] 08/18/19 at | | AM PST [...]
--- OUTSIDE RECORDS SUMMARY | ~2020-02-27 | XMS | Encounter Summary ---
Demographics + + + | Address | [address] | | | [place] [address] | + + + | Home Phone [...] [place], [place] | | | | | [address] | | + + + + + | Ellie Vang | ECON | Unknown | | + + + + + Care Team Providers + +------+ + | Care Autism Specialist Name | Role | Phone | + +------+ + | Fadi Goodrich DO | PCP | | + +------+ + Encounter Details +--------+ + + + + | Date | Type | Department | Care Team | Description | +--------+ + + + + | 06/09/ | Abstract | Digestive Health | Kathy Feldman, | | | 2012 | | [place] [address] [address] | CUSTOMS DIRECTOR [address] | | | | | [address] [facility] | [facility] 350 | | | | | for Health and | [place], [place] | | | | | [facility] 2 | [address] | | | | | [place], [place] | [phone] | | | | | [address] | | | | | | [phone] | | | +--------+ + + + [...] Ave | | | | | | [place], [place] | | | | | | [address] | | | | | | [phone] | | | | | | | | +--------+ + + + + | 04/04/ | Telephone-S | Surgery | Orquidea Cristobal, | | | 2019 | sherrill | | NOTEMAN [address] | | | | | | [facility], [place] | | | | | | [address] | | | | | | [phone] | | | | | | | | +--------+ + + + + documented as of this encounter Visit Diagnoses Not on filedocumented in this encounter"
--- OUTSIDE RECORDS SUMMARY | ~2020-02-27 | XMS | Encounter Summary ---
Demographics + + + | Address | [address] | | | [place] [address] | + + + | Home Phone [...] [place], [place] | | | | | [address] | | + + + + + | Ellie Vang | ECON | Unknown | | + + + + + Care Team Providers + +------+ + | Care Rotary Lithographic Press Operator Name | Role | Phone | + +------+ + | Fadi Goodirch DO | PCP | | + +------+ + Encounter Details +--------+ + + + + | Date | Type | Department | Care Team | Description | +--------+ + + + + | 12/12/ | Emergency | [facility] Emergency | | | | 2014 - | | Department [address] | | | | | [address] | | | | 05/20/ | | [facility] | | | | 2014 | | [place], [place] | | | | | | [address] | | | | | | [phone] | | | +--------+ + + + [...] [address] | | | | | | [place], [place] | | | | | | [address] | | | | | | [phone] | | | | | | | | +--------+ + + + + | 04/04/ | Telephone-S | Surgery | Orquidea Cristobal, | | | 2019 | sherrill | | GMAT INSTRUCTOR [address] | | | | | | [place], [place] | | | | | | [address] | | | | | | [phone] | | | | | | | | +--------+ + + + + documented as of this encounter Visit Diagnoses Not on filedocumented in this encounter"
--- OUTSIDE RECORDS SUMMARY | ~2020-02-27 | XMS | Encounter Summary ---
Demographics + + + | Address | [address] | | | [place] [address] | + + + | Home Phone [...] Team Providers + +------+ + | Care Hoop Riveting Machine Operator Helper Name | Role | Phone | + +------+ + PCP | Unavailable | + +------+ + Encounter Details +--------+ + + + + | Date | Type | Department | Care Team | Description | +--------+ + + + + | 12/02/ | Orders Only | [facility] | Conversion | | | 2017 | | NEPHROLOGY [place] | Transaction, | | | | | [address] | Provider Unknown | | | | | [address] [place], [place] | | | | | | [address] | (Fax) | | | | | [phone] | | | +--------+ + + + [...] D | | | | | | [place] [address] | | | | | | [phone] | | | | | | | | +--------+ + + + + | 03/29/ | Office | Cardiology | Sulema Altamirano | | | 2019 | Visit | | [address] | | | | | | [address] | | | | | | [place] [address] | | | | | | [phone] | | | | | | | [...]
--- OUTSIDE RECORDS SUMMARY | ~2020-02-27 | XMS | Encounter Summary ---
Demographics + + + | Address | [address] | | | [place] [address] | + + + | Home Phone [...] + | Katalina Padilla | ECON | [address] | | | | | [place], [place] | | | | | [address] | | + + + + + | Ellie Vang | ECON | Unknown | | + + + + + Care Team Providers + +------+ + | Care Loom Operator Name | Role | Phone | + +------+ + | Fadi Goodrich DO | PCP | | + +------+ + Encounter Details +--------+ + + + + | Date | Type | Department | Care Team | Description | +--------+ + + + + | 03/16/ | Telephone | Digestive Health | Ronna Clarke, | | | 2018 | | Center at [facility] [address] | ACNP [address] | | | | | [address] | Ave [place], [place] | | | | | for Health and | [address] | | | | | [facility] 2 | [phone] | | | | | [place], [place] | | | | | | [address] | | | | | | | [...] [place] | | | | | | [address] | | | | | | [phone] | | | | | | | | +--------+ + + + + | 04/04/ | Telephone-S | Surgery | Orquidea Cristobal, | | | 2019 | cheduhipolito | | DENTURE PROCESSOR [address] | | | | | | [place], [place] | | | | | | [address] | | | | | | [phone] | | | | | | | | +--------+ + + + + documented as of this encounter Visit Diagnoses Not on filedocumented in this encounter"
--- OUTSIDE RECORDS SUMMARY | ~2020-02-27 | XMS | Encounter Summary ---
Demographics + + + | Address | [address] | | | [place] [address] | + + + | Home Phone [...] [place], [place] | | | | | [address] | | + + + + + | Ellie Vang | ECON | Unknown | | + + + + + Care Team Providers + +------+ + | Care Grain Inspector Name | Role | Phone | [...] | | | | | (HCC) | [place], [place] | Hospital, | | | | | Procedures | [address] | 10th Floor | | | | | CT ABDOMEN & | Phone: | [place], [place] | | | | | PELVIS [address] | | [address] | | | | | IV CONTRAST | Fax: | Phone: | | | | | [address] [address] | [phone] | [phone] | | | | | ABDOMEN&PELV | | Fax: | | | | | IS | | [phone] | | | | | W/CONTRAST | [...] | 2015 | Encounter | Lab at [facility] [address] | | | | | [address] [facility] for | | | | | | Health and Healing, | | | | | | Building 1, 3rd | | | | | | Floor [place], [place] | | | | | | [address] | | | | | | [phone] | | | +--------+ + + + [...] | 03/22/ | Office | Cardiology | Rnadell Franks, | | | 2019 | Visit | | [address] | | | | | | [place], [place] | | | | | | [address] | | | | | | [phone] | | | | | | | | +--------+ + + + + | 04/04/ | Telephone-S | Surgery | Orquidea Cristobal, | | | 2019 | sherrill | | COAL HAULER OPERATOR [address] | | | | | | [place], [place] | | | | | | [address] | | | | | | [phone] | | | | | | | [...] | 0.6 - 1.1 mg/dL | NKECHI VALDEZ, | | | POC | | | POINT OF | | | | | | CARE TESTS | | + +-------+ + + + + + | Specimen | + + | | + + + + + + + | Performing | Address | City/State/Zipcode | Phone Number | | Organization | | | | + + + + + | [facility] | [address] | [place] [address] | | | OF CARE TESTS | | | | + + + + + documented in this encounter Visit Diagnoses + + | Diagnosis | + + | Abdominal pain | + + | Morbid obesity (HCC) Morbid obesity | + + documented in this encounter"
--- OUTSIDE RECORDS SUMMARY | ~2020-02-27 | XMS | Encounter Summary ---
Demographics + + + | Address | [address] | | | [place] [address] | + + + | Home Phone [...] [place], [place] | | | | | [address] | | + + + + + | Ellie Vang | ECON | Unknown | | + + + + + Care Team Providers + +------+ + | Care Document Image Technician Name | Role | Phone | [...] | Event | [address] | RMD [address] | | | | | [facility] | [address] | | | | | Hospital Admitting | [place], [place] | | | | | Desk Located on the | [address] | | | | | 9th floor | [phone] | | | | | [place], [place] | | | | | | [address] | Marcial Brunner CRNA | | | | | | [address] | | | | | | Lesly Gutiérrez [facility] | | | | | | [place] [address] | | | | | | [phone] | | | | | | | [...] [address] | | | | | | [place], [place] | | | | | | [address] | | | | | | [phone] | | | | | | | | +--------+ + + + + | 04/04/ | Telephone-S | Surgery | Orquidea Cristobal, | | | 2019 | cheduled | | TRAFFIC ENGINEER [address] | | | | | | [place], [place] | | | | | | [address] | | | | | | [phone] | | | | | | | [...] | | | Starting Jasmyne /01/08 at 1131, | | AM PDT | [...] 11:46 | | | | | Starting [facility] 03/01/15 at 1146, | | AM PDT | | | | | Until [facility] 03/01/15 at 1204 | | | | [...]
--- OUTSIDE RECORDS SUMMARY | ~2020-02-27 | XMS | Encounter Summary ---
Demographics + + + | Address | [address] | | | [place] [address] | + + + | Home Phone [...] + | Katalina Padilla | ECON | [address] | | | | | [place], [place] | | | | | [address] | | + + + + + | Ellie Vang | ECON | Unknown | | + + + + + Care Team Providers + +------+ + | Care Building Services Coordinator Name | Role | Phone [...] | | | | | | | [place] for | | | | | | | Health and | | | | | | | Healing, | | | | | | | Building 2 | | | | | | | [place], [place] | | | | | | | [address] | | | | | | | Phone: | | | | | | | [phone] | | | | | | | Fax: | | | | | | | [phone] | +--------+--------+ + + + + Encounter Details +--------+---------+ + + + | Date | Type | Department | Care Team | Description | +--------+---------+ + + + | 06/16/ | Office | Digestive Health | Olga Lidia Montanez, | Morbid obesity (HCC) | | 2012 | Visit | Center at [facility] [address] | [address] [facility] | (Primary Dx); Type | | | | [address] [facility] | [facility] [address] | 2 diabetes mellitus | | | | [facility] and | [place], [place] | (HCC) | | | | [place] [address] | [address] | | | | | [place], [place] | | | | | | [address] | | | | | | [phone] | | | +--------+---------+ + + + [...] of Visit: 10:06 to 10:32 (26 minutes bssp-fo-hqac with patient & friend) SUBJECTIVE: Is surprised she has gained weight; is disappointed. Still following her usual meal plan. H as d/c'd diet soda. Still struggling w/ eating out of boredom - choosing 100 kcal snacks but having ~3 of them at a time. Not as much emotional eating lately. Has been keeping food log s (on paper) - avg 6345-5259 kcal/d. Trying to increase activity. B: Atkins [...] provided. Olga Lidia Montanez RD, LD Pager [phone] documented in this en counter Plan of Treatment +--------+ + + + + | Date | Type | Specialty | Care Team | Description | +--------+ + + + + | 03/22/ | Office | Cardiology | Randell Franks, | | | 2019 | Visit | | MD [address] | | | | | | [place], [place] | | | | | | [address] | | | | | | [phone] | | | | | | | | +--------+ + + + + | 04/04/ | Telephone-S | Surgery | Orquidea Cristobal, | | | 2020 | cheduled | | BIOTECHNOLOGIST [address] | | | | | | [place], [place] | | | | | | [address] | | | | | | [phone] | | | | | | | | +--------+ + + + + documented as of this encounter Procedures + +--------+ + + + | Procedure Name | Priori | Date/Time | Associated Diagnosis | Comments | | | ty | | | | + +--------+ + + + | MA MNT RE-ASSESSMNT | Routin | 06/16/2013 | [...]
--- OUTSIDE RECORDS SUMMARY | ~2020-02-27 | XMS | Encounter Summary ---
Demographics + + + | Address | [address] | | | [place] [address] | + + + | Home Phone [...] [place], [place] | | | | | [address] | | + + + + + | Ellie Vang | ECON | Unknown | | + + + + + Care Team Providers + +------+ + | Care Mortgage Loan Officer Originator Name | Role | Phone | + [...] + + | 07/04/ | Telephone | [facility] | Chilo, | Care Coordination | | 2019 | | Center at [facility] [address] | MD Jorje [address] | (follow up) | | | | S [facility] | [address] | | | | | and | [place], [place] | | | | | [place] [address] | [address] | | | | | [place], [place] | [phone] | | | | | [address] | | | | | | [phone] | | | +--------+ + + + [...] [place] | | | | | | [address] | | | | | | [phone] | | | | | | | | +--------+ + + + + | 04/04/ | Telephone-S | Surgery | Orquidea Cristobal, | | | 2019 | cheduled | | BLOW TORCH OPERATOR [address] | | | | | | [place], [place] | | | | | | [address] | | | | | | [phone] | | | | | | | | +--------+ + + + + documented as of this encounter Visit Diagnoses Not on filedocumented in this encounter"
--- OUTSIDE RECORDS SUMMARY | ~2020-02-27 | XMS | Encounter Summary ---
Demographics + + + | Address | [address] | | | [place] [address] | + + + | Home Phone [...] [place], [place] | | | | | [address] | | + + + + + | Ellie Vang | ECON | Unknown | | + + + + + Care Team Providers + +------+ + | Care Specimen Preparation Assistant Name | Role | Phone | + +------+ + | Fadi Goodrich DO | PCP | | + +------+ + Encounter Details +--------+------+ + + + | Date | Type | Department | Care Team | Description | +--------+------+ + + + | 08/28/ | Lab | Laboratory at [facility] | | Type 2 diabetes | | 2014 | | [address] | | mellitus (HCC) | | | | Center for Health | | | | | | and Healing, | | | | | | Building 2 | | | | | | [place], [place] | | | | | | [address] | | | | | | [phone] | | | +--------+------+ + + + [...] Ave | | | | | | [place], [place] | | | | | | [address] | | | | | | [phone] | | | | | | | | +--------+ + + + + | 04/04/ | Telephone-S | Surgery | Orquidea Cristobal, | | | 2019 | cheduled | | REPAIRER SASH AND DOOR [address] | | | | | | [place] [facility], [place] | | | | | | [address] | | | | | | [phone] | | | | | | | [...] | + + + + + | [facility] | [address] | [place] [address] | | | LYDIA RANGEL | CLARENCE [...] | + + + + + | [facility] | [address] | [place] [address] | | | SERVICES, SPECIAL | PARK [...]
--- OUTSIDE RECORDS SUMMARY | ~2020-02-27 | XMS | Encounter Summary ---
Demographics + + + | Address | [address] | | | [place] [address] | + + + | Home Phone [...] [place], [place] | | | | | [address] | | + + + + + | Ellie Vang | ECON | Unknown | | + + + + + Care Team Providers + +------+ + | Care Inside Phone Sales Name | Role | Phone | + +------+ + | Fadi Goodrich DO | PCP | | + +------+ + Encounter Details +--------+ + + + + | Date | Type | Department | Care Team | Description | +--------+ + + + + | 06/09/ | Abstract | Cardiology | Randell Franks, | | | 2015 | | Preventive at [facility] | MD [address] | | | | | [address] | [place], [place] | | | | | [facility] | [address] | | | | | and [place], | [phone] | | | | | Building 1 | | | | | | [facility] [place] | | | | | | [address] | | | | | | [phone] | | | +--------+ + + + [...] Ave | | | | | | [place], [place] | | | | | | [address] | | | | | | [phone] | | | | | | | | +--------+ + + + + | 04/04/ | Telephone-S | Surgery | Orquidea Cristobal, | | | 2019 | cheduled | | HOME CARE ADMINISTRATOR [address] | | | | | | [place], [place] | | | | | | [address] | | | | | | [phone] | | | | | | | | +--------+ + + + + documented as of this encounter Visit Diagnoses Not on filedocumented in this encounter"
--- OUTSIDE RECORDS SUMMARY | ~2020-02-27 | XMS | Encounter Summary ---
Demographics + + + | Address | [address] | | | [place] [address] | + + + | Home Phone [...] [place], [place] | | | | | [address] | | + + + + + | Ellie Vang | ECON | Unknown | | + + + + + Care Team Providers + +------+ + | Care Minute Clerk Name | Role | Phone | [...] CHOLECYSTECOMY WITH | | | | Brock [facility] Moreno | [address] [place], | INTRA-OP | | | | Hospital Admitting | [place] [address] | CHOLANGIOGRAM | | | | Desk Located on the | [phone] | | | | | 9th floor | | | | | | [place], [place] | | | | | | [address] | | | +--------+---------+ + + + [...] + documented in this encounter Discharge Summaries Praidp Starr MD - 02/08/2014 1:05 PM PDTI saw and evaluated the patient. I agree with the findings and the plan of care as documented in the resident s note. PRADIP STARR MD [facility] [address] [place] [address] orrest, Maryam Yu MD - 1:05 PM PDT [facility] DEPARTMENT OF SURGERY EMERGENCY GENERAL SURGERY [...] Type 2 DM who presented to the [facility] ED ([place], [place]) on 02/06/14, with a week hi story of RUQ abdominal pain that radiates to her back. There, she was found to have leukocyt osis and multiple tiny, mobile stones, + sonographic Peterson's sign on abdominal ultrasound, concerning for acute cholecystitis. She was givenIV antibiotics (cipro, flagyl) and pain med s, then transferred to [facility] by [facility] for further care. Ms. Romero endorsed [...] up with Trauma Emergency General Surgery at [facility] In 4 weeks. (follow up in 2-4 weeks ) Contact information [address] [facility] Mailcode: [id number] [address] [place] [address] Thank you for the [...] the resident s note. PRADIP STARR MD [facility] [address] [facility] [place] [address] orrMaryam hill MD - 5:17 AM PDT [facility] DEPARTMENT OF SURGERY EMERGENCY GENERAL SURGERY Division [...] tolerated MARYAM RHODES MD PGY-1, General Surgery [phone] pager number [facility] A [address] [place] [facility] [place] [address] documented in this encoun ter Plan of Treatment +--------+ + + + + | Date | Type | Specialty | Care Team | Description | +--------+ + + + + | 03/22/ | Office | Cardiology | Randell Franks, | | | 2019 | Visit | | MD [address] | | | | | | [place], [place] | | | | | | [address] | | | | | | [phone] | | | | | | | | +--------+ + + + + | 04/04/ | Telephone-S | Surgery | Orquidea Cristobal, | | | 2019 | cheduled | | MOLD MAKER APPRENTICE [address] | | | | | | [place], [place] | | | | | | [address] | | | | | | [phone] | | | | | | | [...] - [facility] | [address] | [place], [place] | | | JUSTINE DAWN OF CARE | [facility] | [address] | | | TESTS | | | [...] (H) | 60 - 99 mg/dL | [facility] - | | | GLUCOSE, [...] AMES | [address] | [place], [place] | | | [facility] | [facility] | [address] | | | TESTS | | | [...] [facility] | [address] | [place], [place] | | | JUSTINE DAWN OF JAKY | [address] | [address] | | | TESTS | | | [...] + | [facility] AMES | [address] | [place], [place] | | | LÓPEZ POINT OF CARE | [address] | [address] | | | TESTS | | | [...] [facility] | [address] | [place] [address] | | | SERVICES, | [address] [...] [facility] | [address] | [place] [address] | | | SERVICES, | [address] [...] | [facility] | [address] | [place], [place] | | | [facility] [facility] | [address] | [address] | | | TESTS | | | [...] [facility] | [address] | [place] [address] | | | SERVICES, CORE | PARK [...] | + + + + + | [facility] | [address] | [place] [address] | | | SERVICES, CORE | PARK [...] | + + + + + | [facility] | [address] [facility] | [place] [address] | | | CLAIRE, LYDIA | CLARENCE [...] | + + + + + | [facility] | [address] | [place] [address] | | | SERVICES, CORE | PARK [...] | | | LABORATORY | | | TUNISIAN | | | SERVICES, | | | [...] the MDRD equation recommended by the | [facility] | | National Kidney Disease Education Program. [...] | + + + + + | [facility] | [address] | [place] [address] | | | LYDIA RANGEL | CLARENCE [...] | [facility] | [address] | [place], [place] | | | LÓPEZ POINT OF CARE | [facility] | [address] | | | TESTS | | | [...] pattern. | | | | | | Pre Billing Specialist | | | | | | sections [...] | + + + + + | [facility] | [address] | [place] [address] | | | PATHOLOGY | [address] [...]
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
--- OUTSIDE RECORDS SUMMARY | ~2020-02-27 | XMS | Encounter Summary ---
Demographics + + + | Address | [address] | | | [place] [address] | + + + | Home Phone [...] + | Katalina Padilla | ECON | [address] | | | | | [place], [place] | | | | | [address] | | + + + + + | Ellie Vang | ECON | Unknown | | + + + + + Care Team Providers + +------+ + | Care Chestnut Tanner Name | Role | Phone | + +------+ + | Fadi Goodrich DO | PCP | | + +------+ + Encounter Details +--------+ + + + + | Date | Type | Department | Care Team | Description | +--------+ + + + + | 07/18/ | Abstract | Digestive Health | Shereen Georges, | | | 2012 | | Center at [facility] [address] | [facility] [address] | | | | [address] | [address] [place], [place] | | | | | for [facility] and | [address] | | | | | [facility] [address] | | | | | | [place], [place] | | | | | | [address] | | | | | | | [...] [address] | | | | | | [place], [place] | | | | | | [address] | | | | | | [phone] | | | | | | | | +--------+ + + + + | 04/04/ | Telephone-S | Surgery | Orquidea Cristobal, | | | 2019 | sherrill | | [employer] [address] | | | | | | [place], [place] | | | | | | [address] | | | | | | [phone] | | | | | | | | +--------+ + + + + documented as of this encounter Visit Diagnoses Not on filedocumented in this encounter"
--- OUTSIDE RECORDS SUMMARY | ~2020-02-27 | XMS | Encounter Summary ---
Demographics + + + | Address | [address] | | | [place] [address] | + + + | Home Phone [...] + | Katalina Padilla | ECON | [address] | | | | | [place], [place] | | | | | [address] | | + + + + + | Ellie Vang | ECON | Unknown | | + + + + + Care Team Providers + +------+ + | Care Head Counselor Name | Role | Phone | [...] | Encounter | [address] | [address] | | | | | [place], [place] | [address] | | | 08/23/ | | [address] | [place], [place] | | | 2019 | | [phone] | [address] | | | | | | [phone] | | | | | | | | | | | | Nay Joe, | | | | | | [address] | | | | | | [address] | | | | | | [place], [place] | | | | | | [address] | | | | | | [phone] | | | | | | | | | | | | Jones Tiwari, | | | | | | [address] [facility] | | | | | | [address] | | | | | | [place], [place] | | | | | | [address] | | | | | | [phone] | | | | | | | [...] the gallo. She was transitioned off her TRAINING ADMINISTRATOR on POD1. She di d have difficulty [...] condition. She will follow up at the Center with Dr. Tiwari in 2- 3 [...] by mouth once daily at bedtime. CALCIUM CRB&[id number]-GENIS ORAL Take 2 tablets by mouth two [...] daily. ASK your doctor about these medications INTERNAL AUDIT CONSULTANT THYROID 30 mg Tab tab Generic drug: [...] the prescribed narcotic-opioid (e.g. oxycodone, hydrocodone, Vicodin, Marissa, Percocet, Dilaudid) as needed. However, Vicodin/Marissa and Percocet contain acetam inophen in the [...] Narcotic-opioid pain medications (e.g. oxycodone, hydrocodone, Vicodin, Marissa, Percocet, Di laudid) can be constipating, therefore you should take a stool softener on the same day as s tarting your narcotic pain medicine. Options include: Milk of Magnesia: 2 Tablespoons Twice daily Colace (=Docusate): 1 pill Twice daily Miralax: 1 Tablespoon (17 grams) daily (check bottle for mixing instructions) While these are some recommendations, any zmof-urx-overzwi stool softener should work, and generics are [...] and plan of care. JONES TIWARI MD [facility] [address] [place] [address] documented in this encounter Discharge Instructions Discharge [...] hours by calling the surgery office at [phone]. After hours, weekends and holidays, you may call the hospital smocking machine operator at [phone] and have the program paraprofessional Green Team for general surgery paged. Discharge [...] the gallo. She was transitioned off her TRAINING ADMINISTRATOR on POD1. She did have dif ficulty [...] dition. She will follow up at the Center with Dr. Tiwari in weeks. She [...] the prescribed narcotic-opioid (e.g. oxycodone, hydrocodone, Vicodin, Marissa, Percocet, Dilaudid) as needed. However, Vicodin/Marissa and Percocet contain acetam inophen in the [...] Narcotic-opioid pain medications (e.g. oxycodone, hydrocodone, Vicodin, Marissa, Percocet, Di laudid) can be constipating, therefore you should take a stool softener on the same day as s tarting your narcotic pain medicine. Options include: Milk of Magnesia: 2 Tablespoons Twice daily Colace (=Docusate): 1 pill Twice daily Miralax: 1 Tablespoon (17 grams) daily (check bottle for mixing instructions) While these are some recommendations, any ohjl-qma-oitrjcr stool softener should work, and generics are fine to use. Increase your fluids, especially your intake of water Increase your activity. Walk frequently. ANTICOAGULATION: We recommend you make an appointment to be seen in your local anticoagulation clinic on Thu08/25/19 to recheck your INR and for ongoing management of your warfarin. FOLLOW-UP: Please call Dr. Tiwari's office ([phone]) to schedule a follow-up appointment for 2-3 [...] | | 0 | | | | CRB&[id number]-GEN | mouth two times | | | [...] + + +---------+ + + | thyroid (INTERNAL AUDIT CONSULTANT | Take 30 mg by mouth | [...] assist PRN. Anticipate discharge michelle Chandler MD [facility], PGY-1 [facility] Pager: [phone] signed by Jones Tiwari MD at 08/22/2019 [...] dc in 2-3 days Gadiel Chandler MD [facility], PGY-1 [facility] [employer] D[facility] Pager: [phone] Associated attestation - Jones Tiwari MD - 08/21/2019 9:57 AM PSTI performed a hist ory and physical examination of the patient and discussed her management with the resident. I reviewed the resident s note and agree with the documented findings and plan of care. JONES TIWARI MD [facility] [address] [place] [address] Valencia Zamora MD - 08/20/2019 8:42 AM [...] well. - ruiz out today - dc TRAINING ADMINISTRATOR - ppx lovenox today - therapeutic lovenox [...] care -Multimodal pain control Joselyn Everett MD [facility] General Surgery PGY1 [id number] Gadiel Armstrong MD - 08/19/2019 12:34 PM [...] Gadiel Chandler MD [facility], PGY-1 Green [facility] Dyer Pager: [phone] documented in this encounter Plan of Treatment [...] [place] | | | | | | [address] | | | | | | [phone] | | | | | | | | +--------+ + + + + | 04/04/ | Telephone-S | Surgery | Orquidea Cristobal, | | 2019 | chesteve | | CHANNEL CEMENTER [address] | | | | | | [place], [place] | | | | | | [address] | | | | | | [phone] | | | | | | | [...] | + + + + + | [facility] | [address] | [place] [address] | | | SERVICES, LYDIA | CLARENCE [...] ROBERTS | [address] | [place] [address] | | | SERVICES, CORE | CLARENCE [...] + | [facility] | [address] | [place] [address] | | | SERVICES, CORE | PARK [...] MARQUAM | [address] | [place], [place] | | | LÓPEZ POINT OF CARE | [address] | [address] | | | TESTS | | | [...] | [address] | [place], [place] | | | WHEELER, POINT OF CARE | [address] | [address] | | | TESTS | | | [...] | + + + + + | [facility] | [address] | [place] [address] | | | SERVICES, | [address] [...] + + + + | [facility] | [address] | [place] [address] | | | [address] | [...] 23 | 23 - 29 mmol/L | [facility] - | | | JEMAL, POC | | | [place] | | | | | | JUSTINE DAWN | | | | | | OF CARE | | | | | | TESTS | | + + + + + + | PH VENOUS, | 7.33 (L) | 7.35 - 7.45 | [facility] - | | | POC [...] AMES | [address] | [place], [place] | | | JUSTINE DAWN OF [facility] | [facility] | [address] | | | TESTS | | | [...] | [facility] | | | GRAVITY | Mcalister performed by | | LABORATORY | | [...] [facility] | [address] | [place] [address] | | | SERVICES, CORE | CLARENCE [...] [facility] | [address] | [place] [address] | | | SERVICES, | [address] [...] [facility] | [address] | [place] [address] | | | SERVICES, CORE | CLARENCE [...] [facility] | [address] | [place] [address] | | | SERVICES, CORE | CLARENCE [...] [facility] | [address] | [place] [address] | | | SERVICES, CORE | PARK [...] | [facility] | [address] | [place] [address] | | | SERVICES, CORE | PARK [...] | + + + + + | [facility] | [address] | [place] [address] | | | SERVICES, CORE | [address] | | | + + + + + ED INFORMATION EXCHANGE (08/18/2019 1:47 PM PST) + + | Specimen | + + | | + + + + + | Narrative | Performed At | + + + | COLLECTIVE?NOTIFICATION?08/18/2019 13:47?DYLAN ROMERO?MRN: | [facility] | | [id number] Criteria Met 5 Visits In 12 Months Has | MEDICAL | | Guidelines PDMP Security and Safety No recent Security Events | [employer] | | currently on file ED Care Guidelines from [facility] [place] | | | Last Updated: 12/06/18 9:53 AM Care Coordination: Receiving | | | mental health services with [facility].? Please contact [facility] for | | | mental health concerns.? Sarah/Toni Centeno: [phone]? | | | Kishan: [phone].? These are guidelines and the provider | | | should exercise clinical judgment when providing care. Care | | | History Medical/Surgical 05/24/19 12:00 AM [facility] | | | Hospital PATIENT HAS AN APT ON 06/16/[address] HYLTON. | | | 05/11/19 12:00 AM [facility] Patient is | | | currently established with [facility]. If patient is seen in | | | the ED during business hours. Please contact CHWs at [facility] | | | Clinic. Care [...] 08/23/18 12:00 AM | | | [facility] PATIENT HAS A PCP APT TO ESTABLISH | | | CARE ON 10/04/18 @ 10:00AM WITH DR HYLTON. Flags | | | [place] ED [...] | are updated weekly. / Attributed By: [place] [facility] ([facility]) / | | | Attributed On: 08/09/2019 [...] | | | mo.) Facility Visits [facility] 1 [facility] and | | | [facility] 2 [facility] 7 Total 10 Note: | | | Visits indicate total known visits. Recent Emergency Department | | | Visit Summary Date Facility City State Type Diagnoses or Chief | | | Complaint Aug 18, 2019 [facility] [place] | | | [place] Emergency 10,800. amr [facility] | | | [place] Emergency terminal computer operator (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 | | | Anxiety disorder, unspecified Cellulitis of abdominal wall | | | Acute embolism and thrombosis of deep veins of r up extrem | | | Nicotine dependence, unspecified, uncomplicated Migraine, unsp, | | | not intractable, without status migrainosus Unspecified | | | abdominal pain Allergy status to oth drug/meds/biol subst status | | | Other retirement (current) drug therapy Allergy status to | | | penicillin Jun 19, [address] [facility] [facility] [place] Emergency | | | terminal computer operator (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 Prsnl hx [...] unspecified Jun 01, 2019 | | | [facility] [place] Emergency Headache Allergy | | | status to penicillin Anxiety disorder, unspecified | | | Obesity, unspecified Migraine, unsp, not intractable, without | | | status migrainosus Other termination clerk (current) drug therapy | | | Allergy status to oth drug/meds/biol subst status terminal computer operator | | | (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 care home (current) use of | | | aspirin May 23, 2019 [facility] [place] Emergency | | | Anxiety disorder, unspecified Acute embolism and thrombosis of | | | deep veins of r up extrem Allergy status to penicillin | | | Other retirement (current) drug therapy Pain in right arm | | | care home (current) use of aspirin Allergy status to oth | | | drug/meds/biol subst status May 20, [address] [facility] | | | [place] Emergency Generalized abdominal pain Allergy | | | status to oth drug/meds/biol subst status Unspecified abdominal | | | pain Anxiety disorder, unspecified Other chronic pain | | | Allergy status to penicillin terminal computer operator (current) use of | | | aspirin Prsnl hx of TIA (TIA), and cereb infrc w/o resid | | | deficits Other termination clerk (current) drug therapy May 13, | | | 2019 [facility] [place] Emergency | | | [...] and cereb infrc w/o resid deficits Other termination clerk (current) | | | drug therapy Allergy status to penicillin December 03, 2018 [facility] | | | [facility]. [place] Emergency RIGHT LEG PAIN DUE TO FALL | | | Strain of unsp musc/tend at lower leg level, right leg, init | | | Aug 22, 2018 [facility] [place] Emergency Other | | | retirement (current) drug therapy Upper abdominal pain, | | | unspecified Bariatric surgery status Allergy status to oth | | | drug/meds/biol subst status Noninfective gastroenteritis and | | | colitis, unspecified Obesity, unspecified Anxiety | | | disorder, unspecified terminal computer operator (current) use of aspirin | | | Allergy status to penicillin Personal history of pulmonary | | | embolism Recent Inpatient Visit Summary No recorded | | | inpatient visits. Care Team Provider Specialty Phone Fax Service | | | Dates Eagle Nino CHW Community Health Worker | | | Jul 03, 2019 - Current JONES DAVISON D.M.D. Dentist: | | | Greenhouse Instructor May 23, 2019 - | | | Current Rob Tilley Car Rental Clerk/Glaciologist ([id number]) | | | [phone] Mar 27, 2018 - Current Bernard Hylton MD Internal | | | Medicine: Pulmonary Disease Aug 23, 2018 - Current | | | [facility] Portal This patient has registered at the [facility] | | | [facility] Emergency Department For more information | | | visit: | | | [email or web address] | | | [email or web address] PLEASE NOTE: 1. Any care recommendations [...] or completeness of information provided. ? 2020 [employer] | | | [employer] | | + + + + + [...] on fileED Care Guidelines | | from [facility] [place] Updated: 12/06/18 9:53 AM Care Coordination:Receiving | | mental health services with [facility].? Please contact [facility] for mental health | | concerns.? Sarah/Toni Centeno: [phone]? Kishan: [phone].?These are | | guidelines and the provider should exercise clinical judgment when providing care.Care | | HistoryMedical/Lkajiwxl53/29/19 12:00 AM [facility] PATIENT HAS AN APT | | ON 06/16/[address] HYLTON.05/11/19 12:00 AM [facility] Patient is | | currently established with [facility]. If patient is seen in the ED during | | business hours. Please contact CHWs at [facility].Care Recommendation:This | | patient has had 5 [...] providing | | care.08/23/18 12:00 AM [facility] PATIENT HAS A PCP APT TO ESTABLISH CARE | | ON 10/04/18 @ 10:00AM WITH DR HYLTON. Flags [place] ED Disparity Measure - [...] E.D. Visit Count (12 mo.)Facility Visits [facility] 1 [facility] | [facility] 2 [facility] 7 Total 10 Note: Visits indicate | | total known visits. Recent Emergency Department Visit SummaryDate Facility [facility] State | | Type Diagnoses or Chief Complaint Aug 18, 2019 [facility] | | [place] Emergency 10,800. amr Jun 25, 2019 [facility] [place] Emergency | | care home (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 Anxiety disorder, unspecified | | Cellulitis of abdominal wall Acute embolism and thrombosis of deep veins of r up | | extrem Nicotine dependence, unspecified, uncomplicated Migraine, unsp, not | | intractable, without status migrainosus Unspecified abdominal pain Allergy status | | to oth drug/meds/biol subst status Other termination clerk (current) drug therapy Allergy | | status to penicillin Jun 19, 2019 [facility] [place] Emergency terminal computer operator | | (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 [...] unspecified Jun 01, 2019 | | [facility] [place] Emergency Headache Allergy status to penicillin | | Anxiety disorder, unspecified Obesity, unspecified Migraine, unsp, not | | intractable, without status migrainosus Other termination clerk (current) drug therapy | | Allergy status to oth drug/meds/biol subst status care home (current) use of | | anticoagulants care home (current) use of aspirin [facility], [facility] | [place] Emergency Anxiety disorder, unspecified Acute embolism and thrombosis of | | deep veins of r up extrem Allergy status to penicillin Other termination clerk (current) | | drug therapy Pain in right arm terminal computer operator (current) use of aspirin Allergy | | status to oth drug/meds/biol subst status May 20, 2019 [facility] [place] | | Emergency Generalized abdominal pain Allergy status to oth drug/meds/biol subst | | status Unspecified abdominal pain Anxiety disorder, unspecified Other chronic | | pain Allergy status to penicillin care home (current) use of aspirin Prsnl hx | | of TIA (TIA), and cereb infrc w/o resid deficits Other retirement (current) drug | | therapy May 13, 2019 [facility] [place] Emergency | | 10,800. A303 18,400. Bariatric surgery status 18,400. Ventral hernia without | | obstruction or gangrene 18,400. Nausea with vomiting, unspecified 18,400. | | Unspecified abdominal pain 18,400. Nonspecific mesenteric lymphadenitis May 10, 2019 | | [facility] [place] Emergency Nausea with vomiting, unspecified Solitary | | pulmonary nodule Anxiety disorder, unspecified Ventral hernia without obstruction | | or gangrene Unspecified abdominal pain Diarrhea, unspecified Allergy status to | | oth drug/meds/biol subst status Prsnl hx of TIA (TIA), and cereb infrc w/o resid | | deficits Other termination clerk (current) drug therapy Allergy status to penicillin November | | 2018 [facility]. [place] Emergency RIGHT LEG PAIN DUE TO FALL | | Strain of unsp musc/tend at lower leg level, right leg, init Aug 22, [address] [facility] [facility] | [facility] [place] Emergency Other termination clerk (current) drug therapy Upper | | abdominal pain, unspecified Bariatric surgery status Allergy status to oth | | drug/meds/biol subst status Noninfective gastroenteritis and colitis, unspecified | | Obesity, unspecified Anxiety disorder, unspecified care home (current) use of | | aspirin Allergy status to penicillin Personal history of pulmonary embolism | | Recent Inpatient Visit SummaryNo recorded inpatient visits. Care TeamProvider Specialty | | Phone Fax Service Dates Eagle Nino CHW Community Health Worker | | Jul 03, 2019 - Current JONES DAVISON D.M.D. Dentist: Greenhouse Instructor ([id number]) | | [phone] May 23, 2019 - Current Rob Tilley Car Rental Clerk/Care | | Coordinator Mar 27, 2018 - Current Bernard Hylton MD Internal Medicine: | | Pulmonary Disease Aug 23, 2018 - Current [facility] PortalThis patient has registered | | at the [facility] Emergency Department For more information | | visit: [email or web address] | | PLEASE NOTE: 1. Any care [...] completeness of information | | provided.? 2019 [employer] - [email or web address] | | Allergy status to oth drug/meds/biol subst status | | Other retirement (current) drug therapy | | Allergy status to penicillin | | | |Jun 19, 2019 [facility] [place] Emergency | | care home (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 | | Prsnl [...] | | | |Jun 01, 2019 [facility] [place] Emergency | | Headache | | Allergy status to penicillin | | Anxiety disorder, unspecified | | Obesity, unspecified | | Migraine, unsp, not intractable, without status migrainosus | | Other termination clerk (current) drug therapy | | Allergy status to oth drug/meds/biol subst status | | terminal computer operator (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 | | care home (current) use of aspirin | | | |May 23, 2019 [facility] [place] Emergency | | Anxiety disorder, unspecified | | Acute embolism and thrombosis of deep veins of r up extrem | | Allergy status to penicillin | | Other termination clerk (current) drug therapy | | Pain in right arm | | care home (current) use of aspirin | | Allergy status to oth drug/meds/biol subst status | | | |May 20, 2019 [facility] [place] Emergency | | Generalized abdominal pain | | Allergy status to oth drug/meds/biol subst status | | Unspecified abdominal pain | | Anxiety disorder, unspecified | | Other chronic pain | | Allergy status to penicillin | | care home (current) use of aspirin | | Prsnl hx of TIA (TIA), and cereb infrc w/o resid deficits | | Other retirement (current) drug therapy | | | |May 13, 2019 [facility] [place] Emergency | | 10,800. [...] infrc w/o resid deficits | | Other retirement (current) drug therapy | | Allergy status to penicillin | | | |December 03, 2018 [facility]. [place] Emergency | | RIGHT LEG PAIN DUE TO FALL | | Strain of unsp musc/tend at lower leg level, right leg, init | | | |Aug 22, 2018 [facility] [place] Emergency | | Other termination clerk (current) drug therapy | | Upper abdominal pain, unspecified | | Bariatric surgery status | | Allergy status to oth drug/meds/biol subst status | | Noninfective gastroenteritis and colitis, unspecified | | Obesity, unspecified | | Anxiety disorder, unspecified | | terminal computer operator (current) use of aspirin | | Allergy status to penicillin | | Personal history of pulmonary embolism | | | | | | | |Recent Inpatient Visit Summary | |No recorded inpatient visits. | | | |Care Team | |Provider Specialty Phone Fax Service Dates | |Eagle Nino, GABBIE Community Health Worker Jul 03, 2019 - Current | |JONES DAVISON D.M.D. Dentist: Greenhouse Instructor May 23, 2 019 - Current | |Rob Tilley Car Rental Clerk/Glaciologist Mar 27, 2018 - Current | |Bernard Hylton MD Internal Medicine: Pulmonary Disease Aug 23, 2018 - Current | | | |[facility] Portal | |This patient has registered at the [facility] t | |For more information visit: [email or web address] | |PLEASE NOTE: | | 1. Any care recommendations and other clinical information are provided as guidelines or for historical purposes only, and providers should exercise their own clinical judgment whe n providing care. | | 2. You may only use this information for purposes of treatment, payment or health care o perations activities, and subject to the limitations of applicable [employer] Policies. | | 3. You should consult directly with the organization that provided a care guideline or o ther clinical history with any questions about additional information or accuracy or complet eness of information provided. | | | |? 2020 [employer] - [email or web address] | + + + + + + + | Performing | Address | City/State/Zipcode | Phone Number | | Organization | | | | + + + + + | [facility] | [address] | [place], [place] | [phone] | | [employer] | [address] | [address] | | + + + + + [...] | | | | | NEEDED, Starting [facility] 08/18/19 at | | AM PST [...] + + +---+---+---+ | HYDROmorphone 0.5 mg/mL TRAINING ADMINISTRATOR | Rate/Dos | 08/20/19 | | | | | (ADULT STANDARD DOSE) in 0.9 % | e Verify | 20 4:12 | | | | | NaCl TRAINING ADMINISTRATOR Dose: 0.2 mg, Lockout | | AM [...] | | | ONCE, 1 dose, [facility] 08/18/19 at 1530 | | PM [...] | | | First dose on [facility] 08/18/19 at | | PM PST [...] | | | | | NEEDED, Starting [facility] 08/18/19 at | | | | [...] | | | | | NEEDED, Starting [facility] 08/18/19 at | | | | [...]
--- OUTSIDE RECORDS SUMMARY | ~2020-02-27 | XMS | Encounter Summary ---
Demographics + + + | Address | [address] | | | [place] [address] | + + + | Home Phone [...] [place], [place] | | | | | [address] | | + + + + + | Ellie Vang | ECON | Unknown | | + + + + + Care Team Providers + +------+ + | Care Goods Layer Name | Role | Phone | [...] | HA Roldan | | | with MANAGER UTILITIES | | hypertension | [address] | | | | | Right | [address] | [place] | | | | | heart | [place], [place] | [place], | | | | | failure | [address] | [place] | | | | | ([facility]) Type | Phone: | [address] | | | | | 2 diabetes | [phone] | Phone: | | | | | mellitus | Fax: | [phone] | | | | | without | [phone] | Fax: | | | | | complication | | [phone] | | | | | , with [...] | 2018 | Visit | Center at [facility] [address] | [address] [facility] | gastric bypass | | | | [facility] | [facility] [address] | (Primary Dx); | | | | for Sudiksha and | [place], [place] | 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[facility], [facility]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[place], [place]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) | | | | [address] | | | | | | [phone] | | | +--------+---------+ + + + [...] Follow-Up Patient referred by: Randell Franks MD [address] [place] [address] Documented time of visit: 2:36pm to 2:49 (13 minutes [id number] with patient) Surgery: Gastric Bypass Date of [...] Medications since surgery: oral - appt with crimper assembler on the Testing blood glucose: 92 mg/dl [...] beef, cream of wheat, cream of mushroom, costa rican yogurt Fluid choices: water Supplementation: Flinstones, iron, [...] multivitamin & mineral (with iron) supplement, 2/day -0168-4944 mg calcium citrate with vitamin D/day (take in divided doses, not within 2 hour s of multivitamin or iron supplement) -500 mcg/day sublingual B12 supplement (or monthly injections) Continued to reinforce importance of mindful eating. Continue to increase physical activity. Follow up in 3 months or earlier as needed. Tejas Cevallos RD, LD Pager # [phone] signed by Tejas Cevallos RD at 05/27/2018 [...] [address]ann[address] | | | | | | [place], [place] | | | | | | [address] | | | | | | [phone] | | | | | | | | +--------+ + + + + | 04/04/ | Telephone-S | Surgery | Orquidea Cristobal, | | | 2019 | cheduled | | HOTEL OR MOTEL MANAGER [address] | | | | | | [place], [place] | | | | | | [address] | | | | | | [phone] | | | | | | | | +--------+ + + + + documented as of this encounter Procedures + +--------+ + + + | Procedure Name | Priori | Date/Time | Associated Diagnosis | Comments | | | ty | | | | + +--------+ + + + | MI MNT RE-ASSESSMNT | Routin | 05/27/2018 | [...]
--- OUTSIDE RECORDS SUMMARY | ~2020-02-27 | XMS | Encounter Summary ---
Demographics + + + | Address | [address] | | | [place] [address] | + + + | Home Phone [...] + | Katalina Padilla | ECON | [address] | | | | | [place], [place] | | | | | [address] | | + + + + + | Ellie Vang | ECON | Unknown | | + + + + + Care Team Providers + +------+ + | Care Unit Reactor Operator Name | Role | Phone | + +------+ + | Fadi Goodrich DO | PCP | | + +------+ + Encounter Details +--------+ + + + + | Date | Type | Department | Care Team | Description | +--------+ + + + + | 08/22/ | Abstract | Cardiology | Randell Franks, | | | 2013 | | Preventive at [facility] | MD [address] | | | | | [address] | [place], [place] | | | | | [facility] | [address] | | | | | and [place], | [phone] | | | | | Building [address] | | | | | | [facility] [place] | | | | | | [address] | | | | | | [phone] | | | +--------+ + + + [...] Ave | | | | | | [place], [place] | | | | | | [address] | | | | | | [phone] | | | | | | | | +--------+ + + + + | 04/04/ | Telephone-S | Surgery | Orquidea Cristobal, | | | 2019 | sherrill | | DRILLING ENGINEERING MANAGER [address] | | | | | | [place], [place] | | | | | | [address] | | | | | | [phone] | | | | | | | | +--------+ + + + + documented as of this encounter Visit Diagnoses Not on filedocumented in this encounter"
--- OUTSIDE RECORDS SUMMARY | ~2020-02-27 | XMS | Encounter Summary ---
Demographics + + + | Address | [address] | | | [place] [address] | + + + | Home Phone [...] + | Katalina Padilla | ECON | [address] | | | | | [place], [place] | | | | | [address] | | + + + + + | Ellie Vang | ECON | Unknown | | + + + + + Care Team Providers + +------+ + | Care Wildlife Refuge Specialist Name | Role | Phone | [...] | 2018 | Review | Center at [facility] [address] | ACNP [address] | Recommendations | | | | [address] [facility] | Ave [place], [place] | | | | | [facility] and | [address] | | | | | [facility], [facility] 2 | [phone] | | | | | [place], [place] | | | | | | [address] | | | | | | [phone] | | | +--------+ + + + [...] [place] | | | | | | [address] | | | | | | [phone] | | | | | | | | +--------+ + + + + | 04/04/ | Telephone-S | Surgery | Orquidea Cristobal, | | | 2020 | sherrill | | CONTROL SYSTEMS DEVELOPER [address] | | | | | | [place] | | | | | | [address] | | | | | | [phone] | | | | | | | | +--------+ + + + + documented as of this encounter Visit Diagnoses Not on filedocumented in this encounter"
--- OUTSIDE RECORDS SUMMARY | ~2020-02-27 | XMS | Encounter Summary ---
Demographics + + + | Address | [address] | | | [place] [address] | + + + | Home Phone [...] [place], [place] | | | | | [address] | | + + + + + | Ellie Vang | ECON | Unknown | | + + + + + Care Team Providers + +------+ + | Care Slate Handler Name | Role | Phone | + +------+ + | Fadi Goodrich DO | PCP | | + +------+ + Encounter Details +--------+ + + + + | Date | Type | Department | Care Team | Description | +--------+ + + + + | 03/02/ | Abstract | Digestive Health | Hernandez Brian, | | | 2012 | | [place] [address] [address] | [address] [employer] | | | | | [address] [facility] | [facility] | | | | | for [facility] and | [place], [place] | | | | | [facility] 2 | [address] | | | | | [place], [place] | [phone] | | | | | [address] | | | | | | [phone] | | | +--------+ + + + [...] Ave | | | | | | [place], [place] | | | | | | [address] | | | | | | [phone] | | | | | | | | +--------+ + + + + | 04/04/ | Telephone-S | Surgery | Orquidea Cristobal, | | | 2019 | sherrill | | HOUSE MANAGER [address] | | | | | | [place], [place] | | | | | | [address] | | | | | | [phone] | | | | | | | | +--------+ + + + + documented as of this encounter Visit Diagnoses Not on filedocumented in this encounter"
--- OUTSIDE RECORDS SUMMARY | ~2020-02-27 | XMS | Encounter Summary ---
Demographics + + + | Address | [address] | | | [place] [address] | + + + | Home Phone [...] [place], [place] | | | | | [address] | | + + + + + | Ellie Vang | ECON | Unknown | | + + + + + Care Team Providers + +------+ + | Care Retort Furnace Operator Name | Role | Phone | + +------+ + | Fadi Goodrich DO | PCP | | + +------+ + Encounter Details +--------+------+ + + + | Date | Type | Department | Care Team | Description | +--------+------+ + + + | 11/28/ | Lab | Laboratory at [facility] | | Essential | | 2017 | | [address] | | hypertension; Right | | | | [facility] | | heart failure (HCC); | | | | and Healing, | | Type 2 diabetes | | | | Building [address] | | mellitus without | | | | [place], [place] | | complication, with | | | | [address] | | long-term current | | | | [phone] | | use of insulin (HCC) | [...] Ave | | | | | | [place], [place] | | | | | | [address] | | | | | | [phone] | | | | | | | | +--------+ + + + + | 04/04/ | Telephone-S | Surgery | Orquidea Cristobal, | | | 2019 | cheduled | | ASSISTANT PROFESSOR OF LIFE SCIENCES [address] | | | | | | [place], [place] | | | | | | [address] | | | | | | [phone] | | | | | | | [...] (NA,K,CL,CO2,BUN,CRE | | PDT | heart failure ([facility]) | results section. | | AT,GLUC,CA,AST,ALT,B | | | Type 2 diabetes | | | MARGIE TOTAL,ALK | | | mellitus without | | | PHOS,ALB,PROT TOTAL) | | | complication, with | | | | | | long-term current | | | | | | use of insulin ([facility]) | | + +--------+ + + + | TSH | Routin | 11/28/2016 | Essential | Results for this | | | e | 10:53 AM | hypertension Right | procedure are in the | | | | PDT | heart failure ([facility]) | results section. | | | | | Type 2 diabetes | | | | | | mellitus without | | | | | | complication, with | | | | | | long-term current | | | | | | use of insulin ([facility]) | | + +--------+ + + + | HEMOGLOBIN A1C, | Routin | 11/28/2016 | Essential | Results for this | | BLOOD | e | 10:53 AM | hypertension Right | procedure are in the | | | | PDT | heart failure ([facility]) | results section. | | | | | Type 2 diabetes | | | | | | mellitus without | | | | | | complication, with | | | | | | long-term current | | | | | | use of insulin ([facility]) | | + +--------+ + [...] [facility] | [address] | [place] [address] | | | LYDIA RANGEL | CLARENCE [...] [facility] | [address] | [place], [place] | | | SERVICES, LIPID | [address] | [address] | | + + + + + HEMOGLOBIN A1C, BLOOD (11/28/2016 10:53 AM PDT) + + + + + + | Component | Value | Ref Range | Performed | Pathologist | | | | | At | Signature | + + + + + + | HEMOGLOBIN | 6.8 (H)Comment: Hgb A1C | <5.7 % | INSU | | | A1C | Interpretive | [...] glycated albumin should be considered for monitoring care home | LABORATORY | | glycemic control [...] + + + + + | [facility] | [address] | [place] [address] | | | SERVICES, SPECIAL | PARK [...] | | | LABORATORY | | | BAHRAINI | | | SERVICES, | | | [...] + + + + + | [facility] | [address] | [place] [address] | | | SERVICES, CORE | CLARENCE [...]
--- OUTSIDE RECORDS SUMMARY | ~2020-02-27 | XMS | Encounter Summary ---
Demographics + + + | Address | [address] | | | [place] [address] | + + + | Home Phone [...] [place], [place] | | | | | [address] | | + + + + + | Ellie Vang | ECON | Unknown | | + + + + + Care Team Providers + +------+ + | Care Manager Federal Name | Role | Phone | + [...] Ave | | | | | | [place], [place] | | | | | | [address] | | | | | | [phone] | | | | | | | | +--------+ + + + + | 04/04/ | Telephone-S | Surgery | Orquidea Cristobal, | | | 2019 | cheduled | | DIE PRESS OPERATOR [address] | | | | | | [place], [place] | | | | | | [address] | | | | | | [phone] | | | | | | | | +--------+ + + + + documented as of this encounter Visit Diagnoses Not on filedocumented in this encounter"
--- OUTSIDE RECORDS SUMMARY | ~2020-02-27 | XMS | Encounter Summary ---
Demographics + + + | Address | [address] | | | [place] [address] | + + + | Home Phone [...] + | Katalina Padilla | ECON | [address] | | | | | [place], [place] | | | | | [address] | | + + + + + | Ellie Vang | ECON | Unknown | | + + + + + Care Team Providers + +------+ + | Care Mat Cleaning Machine Operator Name | Role | Phone [...] | 2016 | on | Center at [place] [id number] | | | | | | [address] [facility] | | | | | | for Health and | | | | | | [facility], Building 2 | | | | | | [place], [place] | | | | | | [address] | | | | | | [phone] | | | +--------+ + + + [...] | | | | | | [place], [place] | | | | | | [address] | | | | | | [phone] | | | | | | | | +--------+ + + + + | 04/04/ | Telephone-S | Surgery | Orquidea Cristobal, | | | 2019 | cheduled | | MANAGER AUDIT [address] | | | | | | [place], [place] | | | | | | [address] | | | | | | [phone] | | | | | | | | +--------+ + + + + documented as of this encounter Visit Diagnoses Not on filedocumented in this encounter"
--- OUTSIDE RECORDS SUMMARY | ~2020-02-27 | XMS | Encounter Summary ---
Demographics + + + | Address | [address] | | | [place] [address] | + + + | Home Phone [...] [place], [place] | | | | | [address] | | + + + + + | Ellie Vagn | ECON | Unknown | | + + + + + Care Team Providers + +------+ + | Care Automobile Accessories Salesperson Name | Role | Phone | [...] | at [facility] [address] | MANAGER WOMEN [address] [facility] | | | | [facility] | [place], [place] | | | | | Health and Healing, | [address] | | | | | [place] [address] [facility] | [phone] | | | | | Floor [place], [place] | | | | | | [address] | | | | | | [phone] | | | +--------+ + + + [...] [address] | | | | | | [place], [place] | | | | | | [address] | | | | | | [phone] | | | | | | | | +--------+ + + + + | 04/04/ | Telephone-S | Surgery | Orquidea Cristobal, | | | 2020 | cheloveled | | SUPERVISING FLOORPERSON [address] | | | | | | [place] | | | | | | [address] | | | | | | [phone] | | | | | | | | +--------+ + + + + documented as of this encounter Visit Diagnoses Not on filedocumented in this encounter"
--- OUTSIDE RECORDS SUMMARY | ~2020-02-27 | XMS | Encounter Summary ---
Demographics + + + | Address | [address] | | | [place] [address] | + + + | Home Phone [...] [place], [place] | | | | | [address] | | + + + + + | Ellie Vang | ECON | Unknown | | + + + + + Care Team Providers + +------+ + | Care Tube Turner Name | Role | Phone | [...] | | 2020 | | Center at [facility] [address] | MD J[address] | | | | | [address] [facility] | [address] | | | | | [facility] and | [place], [place] | | | | | [facility] 2 | [address] | | | | | [place], [place] | [phone] | | | | | [address] | | | | | | [phone] | | | +--------+ + + + [...] Ave | | | | | | [place], [place] | | | | | | [address] | | | | | | [phone] | | | | | | | | +--------+ + + + + | 04/04/ | Telephone-S | Surgery | Orquidea Cristobal, | | | 2019 | cheduled | | REGISTRATION SCHEDULING SPECIALIST [address] | | | | | | [place], [place] | | | | | | [address] | | | | | | [phone] | | | | | | | | +--------+ + + + + documented as of this encounter Visit Diagnoses Not on filedocumented in this encounter"
--- OUTSIDE RECORDS SUMMARY | ~2020-02-27 | XMS | Encounter Summary ---
Demographics + + + | Address | [address] | | | [place] [address] | + + + | Home Phone [...] Team Providers + +------+ + | Care Straight Ruling Machine Operator Name | Role | Phone | + +------+ + | Jorje Hill | PCP | | + +------+ + Reason for Visit Diagnostic/Screening (Routine) +--------+--------+ + + + + | Status | Reason | Specialty | Diagnoses / | Referred By | Referred To | | | | | Procedures | Contact | Contact | +--------+--------+ + + + + | Closed | | Radiology | Diagnoses | [place], | [facility] | | | | | Deep vein | Dharmesh | Intra Op [address] | | | | | thrombosis | MD Natan | [address] | | | | | (DVT) of | [address] | [place], [place] | | | | | left lower | [address] | [address] | | | | | extremity, | [address] | Phone: | | | | | unspecified | [place], [place] | [phone] | | | | | chronicity, | [address] | Fax: | | | | | unspecified | Phone: | [phone] | | | | | vein (HCC) | [phone] | | | | | | Procedures | Fax: | | | | | | IR Removal | [phone] | | | | | | Fibrin | | | | | | | Sheath/Clot | | | | | | | on Device | | | +--------+--------+ + + + + Encounter Details +--------+ + + + + | Date | Type | Department | Care Team | Description | +--------+ + + + + | 06/20/ | Hospital | [facility] | Dharmesh Melchor | Canceled (OTHER) | | 2019 | Encounter | CENTER IR INTRA OP | MD Natan [address] | | | | | [address] | [address] | | | | | [place], [place] | [place] [address] | | | | | [address] | [phone] | | | | | [phone] | | | | | | | Christian Dawson MD | | | | | | [address] | | | | | | [place], [place] | | | | | | [address] | | | | | | | [...] D | | | | | | [place] [address] | | | | | | [phone] | | | | | | | | +--------+ + + + + | 03/29/ | Office | Cardiology | Sulema Altamirano | | | 2019 | Visit | | HILDA [address] | | | | | | [address] | | | | | | [place] [address] | | | | | | [phone] | | | | | | | [...]
--- OUTSIDE RECORDS SUMMARY | ~2020-02-27 | XMS | Encounter Summary ---
Demographics + + + | Address | [address] | | | [place] [address] | + + + | Home Phone [...] [place], [place] | | | | | [address] | | + + + + + | Ellie Vang | ECON | Unknown | | + + + + + Care Team Providers + +------+ + | Care Encyclopedia Research Worker Name | Role | Phone | + +------+ + | Kenyatta Cardenas MD | PCP | | + +------+ + Encounter Details +--------+ + + + + | Date | Type | Department | Care Team | Description | +--------+ + + + + | 05/03/ | Inside | [facility] | Ion Pandey, | | | 2018 | Referral | [facility] [address] | MD [address] | | | | Order | [address] [place] for | [place], [place] | | | | | Health and Healing, | [address] | | | | | [address] | | | | | | [facility] [place] | | | | | | [address] | | | | | | [phone] | | | +--------+ + + + [...] [address] | | | | | | [place], [place] | | | | | | [address] | | | | | | [phone] | | | | | | | | +--------+ + + + + | 04/04/ | Telephone-S | Surgery | Orquidea Cristobal, | | | 2020 | cheduled | | INSPECTOR AND UNLOADER [address] | | | | | | [place], [place] | | | | | | [address] | | | | | | [phone] | | | | | | | [...]
--- OUTSIDE RECORDS SUMMARY | ~2020-02-27 | XMS | Encounter Summary ---
Demographics + + + | Address | [address] | | | [place] [address] | + + + | Home Phone [...] + | Katalina Padilla | ECON | [address] | | | | | [place], [place] | | | | | [address] | | + + + + + | Ellie Vang | ECON | Unknown | | + + + + + Care Team Providers + +------+ + | Care Optometrist/Practice Owner Name | Role | Phone | [...] | | 2 diabetes | JEAN, | [place], [place] | | | | | mellitus | [place] [address] | [address] | | | | | without | Phone: | Phone: | | | | | complication | [phone] | [phone] | | | | | (HCC) | Fax: | Fax: | | | | | Procedures | [phone] | [phone] | | | | | ME EST [...] | Preventive at [facility] | MD [address] | mellitus without | | | | [address] | [place], [place] | complication, with | | | | [facility] | [address] | long-term current | | | | and Healing, | [phone] | use of insulin (HCC) | | | | [address] | | (Primary Dx); | | | | [place], [place] | | Morbid obesity with | | | | [address] | | BMI of 70 and over, | | | | [phone] | | adult (HCC) | +--------+---------+ + [...] tolerate CPAP Severe Morbid obesity ([facility]), BMI 88 11/12/2012 Priority: 4 Overview Note: Lifetime max: 495 lbs Phentermine started Type 2 diabetes mellitus ([facility]) 04/14/2013 Priority: 5 Iron deficiency anemia due to chronic blood loss 11/11/2015 Priority: 6 Overview Note: Ferritin 18 on 10/2015 Hypoalbuminemia (no proteinuria, need to rule out synthetic, nutrition, loss) 6 Priority: 6 Hypothyroidism 08/28/2014 Priority: 8 Morbid obesity with BMI of 70 and over, adult ([facility]) 02/02/2017 Chronic diastolic heart failure ([facility]) 02/02/2017 Immobility 02/02/2017 Severe muscle [...] 1 tablet by mouth once daily CALCIUM CRB&OGY-M5-CCW12-GENIS ORAL Take 2 tablets by mouth two [...] jeart failure is manag ed by her special services director and she was seen by the bariatric surgery group and [facility] for gastric bypass in the upcoming year. [...] is currently being managed well by her Special Needs Teacher with diuretics and main tenance of her [...] management of her heart failure by her Special Needs Teacher 3) Check A1c, lipids 4) Await bariatric [...] | | 2019 | Visit | | [address] | | | | | | [place], [place] | | | | | | [address] | | | | | | [phone] | | | | | | | | +--------+ + + + + | 04/04/ | Telephone-S | Surgery | Orquidea Cristobal, | | | 2020 | sherrill | | PAPER SPOOLER [address] | | | | | | [place], [place] | | | | | | [address] | | | | | | [phone] | | | | | | | [...] + + + + + | [facility] | [address] | [place], [place] | | | SERVICES, LIPID | [address] | [address] | | + + + + + [...] [facility] | [address] | [place] [address] | | | SERVICES, SPECIAL | [address] | | | | IMM + COAG | | | | + + + + + documented in this encounter Visit Diagnoses + + | Diagnosis | + + | Type 2 diabetes mellitus without complication, with long-term current use of insulin | | ([facility]) - Primary | + + | Morbid obesity with BMI of 70 and over, adult ([facility]) | + + documented in this encounter
--- OUTSIDE RECORDS SUMMARY | ~2020-02-27 | XMS | Encounter Summary ---
Demographics + + + | Address | [address] | | | [place] [address] | + + + | Home Phone [...] [place], [place] | | | | | [address] | | + + + + + | Ellie Vang | ECON | Unknown | | + + + + + Care Team Providers + +------+ + | Care Senior Net Software Engineer Name | Role | Phone [...] Ave | | | | | | [place], [place] | | | | | | [address] | | | | | | [phone] | | | | | | | | +--------+ + + + + | 04/04/ | Telephone-S | Surgery | Orquidea Cristobal, | | | 2019 | sherrill | | BRICK LOADER [address] | | | | | | [facility] [place] | | | | | | [address] | | | | | | [phone] | | | | | | | | +--------+ + + + + documented as of this encounter Visit Diagnoses Not on filedocumented in this encounter"
--- OUTSIDE RECORDS SUMMARY | ~2020-02-27 | XMS | Encounter Summary ---
Demographics + + + | Address | [address] | | | [place] [address] | + + + | Home Phone [...] Team Providers + +------+ + | Care Algebra Tutor Name | Role | Phone | + +------+ + | Jorje Hill | PCP | | + +------+ + Encounter Details +--------+ + + + + | Date | Type | Department | Care Team | Description | +--------+ + + + + | 01/05/ | Orders Only | [facility] | Augustine Fu MD | | | 2020 | | NEPHROLOGY [place] | [address] [place] | | | | | [address] [place] | [address] [place], [place] | | | | | [address] [place], [place] | [address] | | | | | [address] | | | | | | [phone] | | | +--------+ + + + [...] | | | | | [place] [address] | | | | | | [phone] | | | | | | | | +--------+ + + + + | 03/29/ | Office | Cardiology | Sulema Altamirano | | | 2019 | Visit | | [address] | | | | | | [address] | | | | | | [place] [address] | | | | | | [phone] | | | | | | | | +--------+ + + + + documented as of this encounter Visit Diagnoses Not on filedocumented in this encounter"
--- OUTSIDE RECORDS SUMMARY | ~2020-02-27 | XMS | Encounter Summary ---
Demographics + + + | Address | [address] | | | [place] [address] | + + + | Home Phone [...] [place], [place] | | | | | [address] | | + + + + + | Ellie Vang | ECON | Unknown | | + + + + + Care Team Providers + +------+ + | Care Agriscience Teacher Name | Role | Phone | [...] | | 2020 | | Center at [facility] [address] | MD J[address]je [address] | | | | | Jacy Farris [facility] | [address] | | | | | [facility] and | [place], [place] | | | | | [facility] 2 | [address] | | | | | [place], [place] | [phone] | | | | | [address] | | | | | | [phone] | | | +--------+ + + + [...] Ave | | | | | | [place], [place] | | | | | | [address] | | | | | | [phone] | | | | | | | | +--------+ + + + + | 04/04/ | Telephone-S | Surgery | Orquidea Cristobal, | | | 2019 | cheduled | | ANIMAL CARE TECHNICIAN [address] | | | | | | [place], [place] | | | | | | [address] | | | | | | [phone] | | | | | | | | +--------+ + + + + documented as of this encounter Visit Diagnoses Not on filedocumented in this encounter"
--- OUTSIDE RECORDS SUMMARY | ~2020-02-27 | XMS | Encounter Summary ---
Demographics + + + | Address | [address] | | | [place] [address] | + + + | Home Phone [...] + | Katalina Padilla | ECON | [address] | | | | | [place], [place] | | | | | [address] | | + + + + + | Ellie Vang | ECON | Unknown | | + + + + + Care Team Providers + +------+ + | Care File System Installer Name | Role | Phone | [...] | | 2016 | | Preventive at [facility] | MD [address] | | | | | [address] | [place], [place] | | | | | [facility] | [address] | | | | | and Healing, | [phone] | | | | | Building [address] | | | | | | [facility] [place] | | | | | | [address] | | | | | | [phone] | | | +--------+ + + + [...] [address] | | | | | | [place], [place] | | | | | | [address] | | | | | | [phone] | | | | | | | | +--------+ + + + + | 04/04/ | Telephone-S | Surgery | Orquidea Cristobal, | | | 2019 | sherrill | | TABLE LEVER OPERATOR [address] | | | | | | [place], [place] | | | | | | [address] | | | | | | [phone] | | | | | | | | +--------+ + + + + documented as of this encounter Visit Diagnoses Not on filedocumented in this encounter"
--- OUTSIDE RECORDS SUMMARY | ~2020-02-27 | XMS | Encounter Summary ---
Demographics + + + | Address | [address] | | | [place] [address] | + + + | Home Phone [...] [place], [place] | | | | | [address] | | + + + + + | Ellie Vang | ECON | Unknown | | + + + + + Care Team Providers + +------+ + | Care Fork Lift Technician Name | Role | Phone | [...] Mailcode:[id number] | | | | | | [facility] | | | | | | [place], [place] | | | | | | [address] | | | | | | [phone] | | | +--------+ + + + [...] [address]ann[address] | | | | | | [place], [place] | | | | | | [address] | | | | | | [phone] | | | | | | | | +--------+ + + + + | 04/04/ | Telephone-S | Surgery | Orquidea Cristobal, | | | 2019 | sherrill | | CARDIOPULMONARY SUPERVISOR [address] | | | | | | [place], [place] | | | | | | [address] | | | | | | [phone] | | | | | | | [...] | | | | navigated a #5.5 Spanish | | | | | | Ozzy [...] | | | | | | a#5.5 Spanish sheath was | | | | | | secured into place. In | | | | | | a similar fashion, | | | | | | a#7.0 Spanish sheath was | | | | | [...] | | | | | The #7 Spanish Brite | | | | | | [...]
--- OUTSIDE RECORDS SUMMARY | ~2020-02-27 | XMS | Encounter Summary ---
Demographics + + + | Address | [address] | | | [place] [address] | + + + | Home Phone [...] [place], [place] | | | | | [address] | | + + + + + | Ellie Vang | ECON | Unknown | | + + + + + Care Team Providers + +------+ + | Care Robot Programmer Name | Role | Phone | [...] | 2019 | | Preventive at [facility] | [address] | | | | | [address] | [place], [place] | | | | | [facility] | [address] | | | | | and Erick, | [phone] | | | | | Building 1 | | | | | | [place], [place] | | | | | | [address] | | | | | | [phone] | | | +--------+ + + + [...] [address]ann[address] | | | | | | [place], [place] | | | | | | [address] | | | | | | [phone] | | | | | | | | +--------+ + + + + | 04/04/ | Telephone-S | Surgery | Orquidea Cristobal, | | | 2020 | sherrill | | ASBESTOS PIPE SUPERVISOR [address] | | | | | | [place] | | | | | | [address] | | | | | | [phone] | | | | | | | | +--------+ + + + + documented as of this encounter Visit Diagnoses Not on filedocumented in this encounter"
--- OUTSIDE RECORDS SUMMARY | ~2020-02-27 | XMS | Encounter Summary ---
Demographics + + + | Address | [address] | | | [place] [address] | + + + | Home Phone [...] [place], [place] | | | | | [address] | | + + + + + | Ellie Vang | ECON | Unknown | | + + + + + Care Team Providers + +------+ + | Care Commercial Retoucher Name | Role | Phone | + [...] Davis | | | | | [facility] | [facility] | | | | | [facility] Admitting | [place] [address] | | | | | Desk Located on the | [phone] | | | | | 9th floor | | | | | | [place], [place] | | | | | | [address] | | | +--------+ + + + [...] Flannery | | | | | | [place], [place] | | | | | | [address] | | | | | | [phone] | | | | | | | | +--------+ + + + + | 04/04/ | Telephone-S | Surgery | Orquidea Cristobal, | | | 2020 | sherrill | | PSYCHOLOGIST EDUCATIONAL [address] | | | | | | [place], [place] | | | | | | [address] | | | | | | [phone] | | | | | | | [...] PDT | | | | | Until 7/15/14 at 1848 | | | | | [...]
--- OUTSIDE RECORDS SUMMARY | ~2020-02-27 | XMS | Encounter Summary ---
Demographics + + + | Address | [address] | | | [place] [address] | + + + | Home Phone [...] [place], [place] | | | | | [address] | | + + + + + | Ellie Vang | ECON | Unknown | | + + + + + Care Team Providers + +------+ + | Care Tube Coater Name | Role | Phone | [...] | [facility] | | | with TUBE HANDLER | | hypertension | [address] | [address] | | | | | Right | [address] | [address] | | | | | heart | [place], [place] | Center for | | | | | failure | [address] | Health and | | | | | ([facility]) Type | Phone: | Healing, | | | | | 2 diabetes | [phone] | Building 2 | | | | | mellitus | Fax: | [place], [place] | | | | | without | [phone] | [address] | | | | | complication | | Phone: | | | | | , with | | [phone] | | | | | long-term | | Fax: | | | | | current use | | [phone] | | | | | of insulin | | | | | | | (AIKEN [...] | Visit | Center at [facility] 3485 | TEXTURING MACHINE FIXER [address] | gastric bypass | | | | [address] | [place], [place] | (Primary Dx); | | | | for Health and | [address] | Intertriginous | | | | Healing, Building 2 | [phone] | candidiasis | | | | [place], [place] | | | | | | [address] | | | | | | [phone] | | | +--------+---------+ + + + [...] Has a new PCP, Dr. Cardenas in [facility]. Bariatric Measures: Activity: walking 1.5-2 [...] [facility] Social History Social History Marital [...] History Narrative Updated 11/09/15 She lives in [place] with her mother and her sister (also her caregiver) lives in an apa rtment/duplex below. She has 2 grandchildren (age 4 and 7) who live with her daughter and son-in-law Her boyfriend lives in [place] HFpEF, DM2, HTN, Sleep Apnea (unable to tolerate CPAP), Hypothyroidism, Severe Obesity (Li fetime max weight 495 lbs) Last seen by Dr rFanks on 06/12/2017 with the following notes: "Assessment: [...] program here and refer her to our human factors specialist who also has expertise in physical [...] tongue once daily., Disp: , Rfl: CALCIUM CRB&DTX-K9-MLF18-GENIS ORAL, Take 2 tablets by mouth two [...] n/a -HTN: still on medications -Diabetes: seeing child care teacher in December, hopes to eliminate Metformin then as recent A1c was normal Return to bariatric clinic in 6 months for 1 year follow up visit See your primary care provider for adjusting any other medications. Call if any abdominal pain, n/v/d or other issues. Pt agrees to plan and will call and/or send [employer] message if any issues. Start time 2:45, end time 3:10. I spent a total of 25 minutes face to face with this patie nt. Over 50% of visit was in counseling. HILDA Davalos Bariatric Surgery Nurse Practitioner [facility] | [id number] | [place], [place] | [address] | documented in this encounter Plan of Treatment +--------+ + + + + | Date | Type | Specialty | Care Team | Description | +--------+ + + + + | 03/22/ | Office | Cardiology | Randell Franks, | | | 2019 | Visit | | [address] | | | | | | [place], [place] | | | | | | [address] | | | | | | [phone] | | | | | | | | +--------+ + + + + | 04/04/ | Telephone-S | Surgery | Orquidea Cristobal, | | | 2019 | sherrill | | TEXTURING MACHINE FIXER [address] | | | | | | [place], [place] | | | | | | [address] | | | | | | [phone] | | | | | | | [...] [facility] | [address] | [place] [address] | | | SERVICES, CORE | PARK [...] | [facility] | [address] | [place] [address] | | | CLAIRE, LYDIA | CLARENCE [...] INTFC | | | | determined by [facility] | | | | | | Laboratories. See | | | | | | Compliance Statement B: | | | | | | [employer]/CSPerformed | | | | | | by [facility],[address] | | | | | | Liliana Martinez, [facility],[place] | | | | | | [address] | | | | | | [phone].[facility]. | | | | | | Ismael [...] [facility] | [address] | [place], [place] | | | UNIV PTH - INTFC | | [address] | | + + + + + [...] | | | | | determined by [facility] | | | | | | Laboratories. See | | | | | | Compliance Statement B: | | | | | | [employer]/CSPerformed | | | | | | by [employer],[address] | | | | | | Liliana Martinez, [facility],[place] | | | | | | [address] | | | | | | [phone].[facility]. | | | | | | com, [...] + + | [facility] | [address] [facility] | [place], [place] | | | UNIV PTH - INTFC | | [address] | | + + + + + [...] [facility] | | | (YEN NOAH) | [facility],[address] | | REG UNIV | | | SERUM | [place], [place] | | PTH - INTFC | | | | [address] | | | | | | [phone].[facility]. | | | | | | com, [...] B: | | | | | | [facility].MOG/CS | | | | + + + + + + + + | Specimen | + + | Blood - Blood | | (substance) | + + + + + + + | Performing | Address | City/State/Zipcode | Phone Number | | Organization | | | | + + + + + | [facility] | [address] | [place], [place] | | | UNIV PTH - INTFC | | [address] | | + + + + + [...] [facility] | [address] | [place] [address] | | | SERVICES, CORE | PARK [...] MEDICAL CENTER | [address] | [place] [address] | | | SERVICES, CORE | CLARENCE [...] | | | | | determined by [facility] | | | | | | Laboratories. See | | | | | | Compliance Statement B: | | | | | | [facility].MOG/CSPerformed | | | | | | by [employer],[address] | | | | | | Liliana Martinez [place], [place] | | | | | | [address] | | | | | | [phone].[facility]. | | | | | | comIsmael [...] [facility] | [address] | [place], [place] | | | UNIV PTH - INTFC | | [address] | | + + + + + [...] [facility] | [address] | [place] [address] | | | SERVICES, CORE | CLARENCE [...] | | | | | determined by [facility] | | | | | | Laboratories. See | | | | | | Compliance Statement B: | | | | | | [facility].MOG/CSPerformed | | | | | | by [employer],[address] | | | | | | Liliana Martinez, [facility],[place] | | | | | | [address] | | | | | | [phone].[facility]. | | | | | | comIsmael [...] [facility] | [address] | [place], [place] | | | UNIV PTH - INTFC | | [address] | | + + + + + [...] [facility] | [address] | [place] [address] | | | SERVICES, CORE | PARK [...] | + + + + + | [facility] | [address] | [place] [address] | | | SERVICES, SPECIAL | PARK [...] MEDICAL CENTER | [address] | [place] [address] | | | SERVICES, CORE | CLARENCE [...] at | | | | | | [email or web address] | | | | | | med by [facility] | | | | | | [facility],[address] [place] [address] | | | | | | [place] [address] | | | | | | [phone].[facility]. | | | | | | tooele [...] [facility] | [address] | [place], [place] | | | UNIV PTH - INTFC | | [address] | | + + + + + [...] | | | LABORATORY | | | SYRIAN | | | SERVICES, | | | [...] the MDRD equation recommended by the | DESU | | National Kidney Disease Education Program. [...] [facility] | [address] | [place] [address] | | | SERVICES, CORE | PARK [...]
--- OUTSIDE RECORDS SUMMARY | ~2020-02-27 | XMS | Encounter Summary ---
Demographics + + + | Address | [address] | | | [place] [address] | + + + | Home Phone [...] [place], [place] | | | | | [address] | | + + + + + | Ellie Vang | ECON | Unknown | | + + + + + Care Team Providers + +------+ + | Care Toll Settlement Clerk Name | Role | Phone | [...] | | 2014 | | Center at [facility] 3485 | ACNP [address] | | | | | [address] | Ave [place], [place] | | | | | for Health and | [address] | | | | | Healing, [facility] 2 | [phone] | | | | | [place], [place] | | | | | | [address] | | | | | | [phone] | | | +--------+ + + + [...] | 2019 | Visit | | [address] | | | | | | [place], [place] | | | | | | [address] | | | | | | [phone] | | | | | | | | +--------+ + + + + | 04/04/ | Telephone-S | Surgery | Orquidea Cristobal, | | | 2019 | sherrill | | EXPANDING MACHINE OPERATOR [address] | | | | | | [place], [place] | | | | | | [address] | | | | | | [phone] | | | | | | | | +--------+ + + + + documented as of this encounter Visit Diagnoses Not on filedocumented in this encounter"
--- OUTSIDE RECORDS SUMMARY | ~2020-02-27 | XMS | Encounter Summary ---
Demographics + + + | Address | [address] | | | [place] [address] | + + + | Home Phone [...] [place], [place] | | | | | [address] | | + + + + + | Ellie Vang | ECON | Unknown | | + + + + + Care Team Providers + +------+ + | Care Special Education Administrator Name | Role | Phone | [...] | obstruction | [address] | [address] [place], | | | | | or gangrene | Rd | [place] | | | | | | [place], [place] | [address] | | | | | Incarcerated | [address] | Phone: | | | | | ventral | Phone: | [phone] | | | | | hernia | [phone] | Fax: | | | | | Procedures | Fax: | [phone] | | | | | REQUEST TO | [phone] | | | | | | SURGERY | | | | | | | SECURITIES ANALYST | | | | | | | IN REPAIR | | | | | | | INCISIONAL | | | | | | | HERNIA,STRAN | | | | | | | G IN REPAIR | | | | | | | INCIS | | | | | | | HERNIA W | | | | | | | MESH IN | | | | | | | MUSCLE-SKIN | | | | | | | FLAP,TRUNK | | | | | | | IN | | | | | | | MUSCLE-SKIN | | | | | | | FLAP,TRUNK | | | | | | | IN REPAIR | | | | | | | INCISIONAL | | | | | | | HERNIA,REDUC | | | | | | | IBLE IN | | | | | | | REPAIR INCIS | | | | | | | HERNIA W | | | | | | | MESH IN | | | | | | | REPAIR | | | | | | | RECURR INCIS | | | | | | | | | | | | | | HERNIA,STRAN | | | | | | | G IN REPAIR | | | | | | | INCIS | | | | | | | HERNIA W | | | | | | | MESH IN | | | | | | | REPAIR | | | | | | | RECURR INCIS | | | | | | | | | | | | | | HERNIA,REDUC | | | | | | | IN REPAIR | | | | | | [...] | | | | | obstruction | [place], | for Health | | | | | or gangrene | [place] | and Healing, | | | | | Abdominal | [address] | Building [address] | | | | | pain, | Phone: | [place], [place] | | | | | unspecified | [phone] | [address] | | | | | abdominal | Fax: | Phone: | | | | | location | [phone] | [phone] | | | | | Procedures | | Fax: | | | | | CONSULT TO | | [phone] | | | | | SURGERY - [...] | 2019 | Visit | Center at [facility] [address] | MD Jones [address] | without obstruction | | | | [address] [facility] | [address] | or gangrene (Primary | | | | for Health and | [place], [place] | Dx) | | | | Healing, Building 2 | [address] | | | | | [place], [place] | [phone] | | | | | [address] | | | | | | [phone] | | | +--------+---------+ + + + [...] (1?2 cup) 6.5 Avocado 1?2 fruit 2.1 Fulton sprouts, cooked 125 mL (1?2 cup) 2.0 Figs, dried 60 mL (1?4 cup) 1.9 Helena 1 medium 1.8 Sweet Potato, cooked, without [...] 1.3 Eggplant 125 mL (1?2 cup) 1.3 Bremer, with skin 1 medium 1.0-1.3 Peas, green, cooked 125 mL (1?2 cup) 0.8-1.3 Carrot, cooked [place] 125 mL (1?2 cup) 1?2 fruit 1.1-1.2 0.7-1.1 Grapefruit 1?2 fruit 0.7-1.1 Prunes, dried 3 1.1 [place], with skin 2 fruits 1.1 Apricots, dried [...] Bread, rye 35 g (1 slice) 0.6-1.0 Teton bread crackers 3 crackers 0.9 Raisin bran [...] of Soluble Fiber [email or web address] PATIENT SURGERY INFORMATION [facility] General Surgery Office Toll-free: ext [phone] Surgery Date: Monday, July 08, [address]: [facility] Procedure: recurrent ventral hernia repair Surgeon Name: Dr. Jones Tiwari DIRECTIONS FOR SURGERY TO PREPARE FOR SURGERY - If you are able, walk every day for at least 30 minutes. - Follow up: Phone pre-operative medicine clinic call to be completed within 30 days of emerson jerrica. This call appointment will be scheduled with you by a end touching machine operator. You will receive a ca ll within [...] ease call the General Surgery Office at [phone] for [id number]. Check-in on the day of surgery is at the Admitting Department located on the 9th floor of [facility]. DIET Nothing to eat or drink [...] the surgery. Please see the list below, [facility] has a list of products that [...] contact our office . Products Containing Aspirin Yuki-[place], Anacin, Anexsia with Codeine, Andynos, Aspirin, Aspirin suppositories, Ascrip tin, Aspergum, Axotal, B-A-C, Baby Aspirin, Lucila, BC Powder, Bexophene, Buffaprin, Bufferin , Buffinol, Cama-Arthritis Strength, Congespirin, [place], Coricidin, Damason, Darvon, Dristan, Kalani-Gesic, Digel, Dolprin #3 Tablets, Donatab, Doxaphene, Duragesic, Easprin, Ecotrin, Emag rin Forte, Emiprin, Emprazil, Equagesic, Equazine M, Excedrin, Fiogesic, Fiorgen PH, Fiorice t, Fiorinal, 4-Way Cold Tablet, Gemnisyn, Indocin, Liquprin, Lortab ASA, Magnaprin, Marnal, Meprobamate, Midol, Momentum, Norgesic, [place], Orphengesic, Pabalate, P-A-C, Percodan, Pre salin, Robaxasil, Roxiprin, Saleto, Salocol, SK-65 Compound, Sine-Aid, Sine-Off, [place], Supac, Talwin Compound, Trigesic, Tolectin, Traiminicin, Vanquish, ZORprin, Zomax Products Containing Ibuprofen Advil, Aleve, Haltran, Medipren, Midol, Motrin, Naproxyn, Nuprin, Rufen Herbal Medications Ephedra: discontinue 24 hours before surgery Garlic: discontinue 7 days prior to surgery Ginkgo: discontinue 36 hours prior to surgery Ginseng: discontinue 7 days prior to surgery Kava: discontinue 24 hours prior to surgery Ahtanum s Wort: discontinue 5 days prior to surgery Valerian: discontinue several weeks prior to surgery Other Products Which May Promote Bleeding Vitamin E, Gingko Biloba, Marine Fatty Acids, [place]-3 Fish Oil Supplement PRE-OP BATHING/SHOWER INSTRUCTIONS with [facility] Bathe or shower the evening before [...] loss of tissue. Check out the free [employer] Quit Line - The Quit Line is open 24 hours a day, seven days a we ek. The Quit Line is a telephone and web-based counseling service to help [place]ians quit us ing tobacco and nicotine products. 1.800.QUIT.NOW ( ) or www.quitnow.net/[place] PARKING Parking at the [facility] for patients and visitors is available in the [facility] tructure located across from the emergency department. Patient parking is available on level 1 and 3. Metered parking is available on the top level. Parking at [facility] is available in the building's parking structure. For additional parking options visit www.[facility]. TRANSPORTATION You will require transportation home on the day of discharge. Pain medications and physical activity restrictions may limit your ability to drive safely. CANCELLING YOUR PROCEDURE Please notify the general surgery office at [phone] as soon as possible should you nee [...] plans to see an ENT and a share dairy farmer for her symptoms in the near future. [...] Dr. Andie Brian Incisional hernia repair 03/01/2015 [facility]/ Dr. Cantu. Primary fascial closure and scar excision Lap gastric byp, and nilesh-en-y gastroenterostomy w/ nilesh limb 150 cm or less 8 [facility] Past Medical History: [...] History Narrative Updated 11/09/15 She lives in [place] with her mother and her sister (also her caregiver) lives in an apa rtment/duplex below. She has 2 grandchildren (age 4 and 7) who live with her daughter and son-in-law Her boyfriend lives in [place] HFpEF, DM2, HTN, Sleep Apnea (unable to [...] daily. BELBUCA 600 mcg buccal film CALCIUM CRB&AJO-Y5-AGB45-GENIS ORAL Take 2 tablets by mouth two [...] morbid obesity s/p laparoscopic anteocolic RYGB (03/01/2018); sin e this operation, she has lost 100+ [...] is still ill. SCRIBE ATTESTATION I am aGdiel Yi functioning as a scribe for Jones Tiwari MD at 1:33 PM on 019 I have reviewed and verified the above scribed note of my visit with this patient as record ed by Gadiel Yi . JONES TIWARI MD [facility] [address] Mailcode: [place] [address] I spent 31 minutes with [...] | | 2019 | Visit | | [address] | | | | | | [place], [place] | | | | | | [address] | | | | | | [phone] | | | | | | | | +--------+ + + + + | 04/04/ | Telephone-S | Surgery | Orquidea Cristobal, | | | 2019 | sarahiloveled | | SAFE AND VAULT INSTALLER [address] | | | | | | [place], [place] | | | | | | [address] | | | | | | [phone] | | | | | | | | +--------+ + + + + documented as of this encounter Visit Diagnoses + + | Diagnosis | + + | Ventral hernia without obstruction or gangrene - Primary Ventral hernia, unspecified, | | without mention of obstruction or gangrene | + + documented in this encounter
--- OUTSIDE RECORDS SUMMARY | ~2020-02-27 | XMS | Encounter Summary ---
[...] [place], [place] | | | | | [address] | | + + + + + | Ellie Vang | ECON | Unknown | | + + + + + Care Team Providers + +------+ + | Care Air Hammer Stripper Name | Role | Phone | + +------+ + | Fadi Goodrich DO | PCP | | + +------+ + Encounter Details +--------+ + + + + | Date | Type | Department | Care Team | Description | +--------+ + + + + | 06/02/ | Telephone | Digestive Health | Ronna Clarke, | | | 2018 | | Center at [facility] 3485 | ACNP [address] | | | | [address] | Ave [place], [place] | | | | | for Health and | [address] | | | | | [facility], [facility] 2 | [phone] | | | | | [place], [place] | | | | | | [address] | | | | | | | [...] [address] | | | | | | [place], [place] | | | | | | [address] | | | | | | [phone] | | | | | | | | +--------+ + + + + | 04/04/ | Telephone-S | Surgery | Orquidea Cristobal, | | | 2019 | cheduhipolito | | LIGHT BULB TESTER [address] | | | | | | [place], [place] | | | | | | [address] | | | | | | [phone] | | | | | | | | +--------+ + + + + documented as of this encounter Visit Diagnoses Not on filedocumented in this encounter"
--- OUTSIDE RECORDS SUMMARY | ~2020-02-27 | XMS | Encounter Summary ---
Demographics + + + | Address | [address] | | | [place] [address] | + + + | Home Phone [...] [place], [place] | | | | | [address] | | + + + + + | Ellie Vang | ECON | Unknown | | + + + + + Care Team Providers + +------+ + | Care Foreclosure Clerk Name | Role | Phone | [...] | 2019 | Visit | [facility]ive at [facility] | MD [address] | mellitus without | | | | [address] | [place], [place] | complication, with | | | | [place] | [address] | long-term current | | | | and Healing, | [phone] | use of insulin (HCC) | | | | Building [address] | | (Primary Dx); | | | | [place], [place] | | Morbid obesity with | | | | [address] | | BMI of 70 and over, | | | | [phone] | | adult (HCC) | +--------+---------+ + [...] Note: Cannot tolerate CPAP Severe Morbid obesity ([facility]), BMI 88 11/12/2012 Priority: 4 Overview Note: Lifetime max: 495 lbs Phentermine started Type 2 diabetes mellitus ([facility]) 04/14/2013 Priority: 5 Iron deficiency anemia due to chronic blood loss 11/11/2015 Priority: 6 Overview Note: Ferritin 18 on 10/2015 Hypoalbuminemia (no proteinuria, need to rule out synthetic, nutrition, loss) 6 Priority: 6 Hypothyroidism 08/28/2014 Priority: 8 Morbid obesity with BMI of 70 and over, adult ([facility]) 02/02/2017 Chronic diastolic heart failure ([facility]) 02/02/2017 Immobility 02/02/2017 Severe muscle deconditioning 02/02/2017 Personal history of DVT (deep vein thrombosis) 02/02/2017 History of pulmonary embolism 02/02/2017 AMARA treated with BiPAP 02/02/2017 Benign essential HTN 02/02/2017 Diabetes mellitus type 2 without retinopathy ([facility]) 02/02/2017 Hyperlipidemia 02/02/2017 Ventral hernia without obstruction [...] daily. BELBUCA 300 mcg buccal film CALCIUM CRB&TII-L7-KSD52-GENIS ORAL Take 2 tablets by mouth two [...] of metformin, and she reports her last dkkxv-ao-yomq A1 c was 5.5% on this dose. [...] CREATININE PLASMA (LAB) 0.85 0.70 EGFR - BURUNDIAN >60 >60 EGFR NON -BURUNDIAN >60 >60 GLUCOSE, PLASMA (LAB) 123 (H) [...] is currently being managed well by her Associate Attorney with diuretics and main tenance of her [...] management of her heart failure by her Associate Attorney 3) discontinue metformin 4) check 24 urine [...] Flannery | | | | | | [place], [place] | | | | | | [address] | | | | | | [phone] | | | | | | | | +--------+ + + + + | 04/04/ | Telephone-S | Surgery | Orquidea Cristobal, | | | 2019 | cheduled | | MILLING OPERATOR [address] | | | | | | [place], [place] | | | | | | [address] | | | | | | [phone] | | | | | | | [...] + + | [facility] - | [address] | [place] | [phone] | | SAIMA | | | | [...]
--- OUTSIDE RECORDS SUMMARY | ~2020-02-27 | XMS | Encounter Summary ---
Demographics + + + | Address | [address] | | | [place] [address] | + + + | Home Phone [...] [place], [place] | | | | | [address] | | + + + + + | Ellie Vang | ECON | Unknown | | + + + + + Care Team Providers + +------+ + | Care Tactical Intelligence Officer Name | Role | Phone | [...] Encounter | Procedural Unit | MD Barb [address] | | | | | ([facility]) at [facility] [address] [place], [place] | | | | | [address] | [address] | | | | | Mailcode: [place] | [phone] | | | | | for Health and | | | | | | Healing, Building [address] | | | | | | [place], [place] | | | | | | [address] | | | | | | [phone] | | | +--------+ + + + [...] hours or on weekends and holiday Hospital Dem[employer]ator Sales toll free [phone] ext. [phone] and have the GI doctor director marketing communications paged. The provider who performed your procedure: [...] | | 0 | | | | CRB&CNE-U7-EUA14-GEN | mouth two times | | | [...] from the original. PRE PROCEDURE NOTE: MR# [id number] Subjective: Elzbieta Cristina is a 44 y.o. [...] Flannery | | | | | | [place], [place] | | | | | | [address] | | | | | | [phone] | | | | | | | | +--------+ + + + + | 04/04/ | Telephone-S | Surgery | Orquidea Cristobal, | | | 2019 | cheduled | | ENGINE INSPECTOR [address] | | | | | | [place], [place] | | | | | | [address] | | | | | | [phone] | | | | | | | [...] + | MRN: | [facility] | | [id number] Date: 04/07/2019Patient Name: Elzbieta Curtis #: | ENDOSCOPY | | [id number] of : [id number]: [id number] Type: | | | AmbulatoryRoom: Endo 5Procedure: Upper GI | | | endoscopyIndications: Generalized abdominal pain, Nausea | | | with vomitingProviders: TAL LUND MD | | | (Doctor), KEERTHI BERNARD RN (Nurse), | | | GENECREST BASCON (Marriage And Family Therapist)Referring MD: SYLVIA Kilpatrick | | | KENNY [...] | | | The Olympus [id number] Endoscope #[id number] | | | was introduced through the [...] + | Performing | Address | City/State[facility] | Phone Number | | Organization [...]
--- OUTSIDE RECORDS SUMMARY | ~2020-02-27 | XMS | Encounter Summary ---
Demographics + + + | Address | [address] | | | [place] [address] | + + + | Home Phone [...] + | Katalina Padilla | ECON | [address] | | | | | [place], [place] | | | | | [address] | | + + + + + | Ellie Vang | ECON | Unknown | | + + + + + Care Team Providers + +------+ + | Care Shrimp Header Name | Role | Phone | + [...] PRINCE Giles | | | | | [place], [place] | [address] | | | 11/12/ | | [address] | [place], [place] | | | 2012 | | [phone] | [address] | | | | | | [phone] | | | | | | | [...] original. INPATIENT PHYSICIAN DISCHARGE SUMMARY Author: AMINTA WLISON MD Attending Physician: Andie Brian MD PCP: Fadi Goodrich DO Admission Date: 11/06/2012 Discharge Date: 12 Nov 2012 Diagnoses Patient Active Problem List: Hernia Ms. Romero is a 37y/o female with history of an open appendectomy in 2010 an umbilical herni a repair. History of staph wound infection requiring incision and drainage and recurrent yuriy tral hernia. She was transferred from [place] for surgical evaluation of possible incarcer ated [...] Cipro. POD 5 she was discharged ho nh, tolerating a diabetic diet. Having bowel function. [...] yuriy tral hernia. She was transferred from [place] for surgical evaluation of possible incarcer ated [...] Cipro. POD 5 she was discharged ho nh, tolerating a diabetic diet. Having bowel function. [...] keeping you from eating and drinking, Call [phone]. It is important to stay hydrated! If [...] taking narcotic that contain Tylenol (acetaminophen) Example: [place], Lortab, Vicodin, hydrocodone/APAP, Percocet, Tylenol #3 PAIN MEDICATIONS are ONLY REFILLED during CLINIC APPOINTMENTS. Please call [phone] to schedule an appointment. Your Follow-Up Plan Follow up with ROBIN MEJIA in 2 weeks. Contact information: [address] [facility] [address] Vitals on discharge: Ht 154.9 cm (5' [...] different f rom the original. [facility] DEPARTMENT [...] clinic - [place]. [place] [address] pager number [facility] [phone] [facility] [phone] Aminta Goodwin Md - 11/11/2012 7:40 AM PDT [facility] DEPARTMENT OF SURGERY EMERGENCY GENERAL SURGERY Division of Trauma and Critical Care Attending Physician: Andie Brian MD Progress Note Note Date: 11/11/2012 Admission Date: 11/06/2012 DYLAN ROMERO, [id number] Hospital Day #5 INTERVAL EVENTS none acute [...] mg, Rectal, DAILY PRN, Aminta Wilson MD qtnkyeerkl-fxbztsdgzourj-xksjlmli (aka FIORICET) 50-325-40 mg 1 Tab, 1 [...] 15-30 mg, 15-30 mg, Oral, Q3H PRN, nÁgel Wilson MD, 30 mg at 11/11/12 1416 [...] Jayne Ponce MD, 1 mg at 11/10/12801 frbjahaqpz-exrdkghfmjxrx-xblckxyw (aka FIORICET) 50-325-40 mg 1 Tab, 1 [...] in preservative free NaCl 0.9% 50 mL MANAGER BUSINESS MANAGEMENT infusion, , Intravenous, KIESHA NUGRANT, Aracely Mccartynato, [...] diet -add bowel regimen Acute pain -HM MANAGER BUSINESS MANAGEMENT, tylenol -convert to oral pain medication once [...] Fluids: LR 125ml/hr Feeding: NPO Analgesia: Dilaudid MANAGER BUSINESS MANAGEMENT Sedation: not indicated Thromboprophylaxis: enoxaparin Head of [...] Ponce MD, 1 mg at 11/09/12 0855 dtukssmcpb-frpspyibsjlvd-ogahonnq (aka FIORICET) 50-325-40 mg 1 Tab, 1 [...] in preservative free NaCl 0.9% 50 mL MANAGER BUSINESS MANAGEMENT infusion, , Intravenous, KIESHA NUOUS, Aracely Cruzo, [...] drainage <30ml for 24hrs Acute pain -HM MANAGER BUSINESS MANAGEMENT, tylenol Diabetes: -insulin gtt not started due [...] Fluids: LR 125ml/hr Feeding: NPO Analgesia: Dilaudid MANAGER BUSINESS MANAGEMENT Sedation: not indicated Thromboprophylaxis: enoxaparin Head of bed: > 30 Ulcer prophylaxis: pepcid Glycemic control: adequate Activity/PT/OT: Ongoing Yogurt: ABX on Probiotics:yes AMINTA WILSON MD General Surgery, R1 Kaleb Martin N P - 11/08/2012 8:49 AM PDT [facility] DEPARTMENT OF SURGERY EMERGENCY GENERAL SURGERY Division of Trauma and Critical Care Attending Physician: Andie Brian MD Progress Note Note Date: 11/08/2012 Admission Date: 11/06/2012 DYLAN ROMERO, [id number] Hospital Day #2 INTERVAL EVENTS NO SUBJECTIVE Pain well controlled; has headache attributed to dilaudid MANAGER BUSINESS MANAGEMENT Tylenol did not help. Flatus: YES Tolerating [...] trials today. -DC ruiz Acute pain -HM MANAGER BUSINESS MANAGEMENT, tylenol Diabetes: -insulin gtt not started due [...] Fluids: LR 125ml/hr Feeding: NPO Analgesia: Dilaudid MANAGER BUSINESS MANAGEMENT Sedation: not indicated Thromboprophylaxis: enoxaparin Head of bed: > 30 Ulcer prophylaxis: pepcid Glycemic control: adequate Activity/PT/OT: Ongoing Yogurt: ABX on Probiotics: No KALEB WALKER NP [facility] [address] [place] [address] elvin Stephens MD - 11/07/2012 9:51 PM [...] 7.33* PCO2 49* PO2 113* HCO3 25 IWMWT1LWI 26 V2VVAAUL 98.3* T4DTIVWTY -- FIO2 60 ABGEXCESS -0.9 Assessment, Medical Decision Making and Plan 1. Incarcerated hernia, now s/p repair and panniculectomy -Binder, pain control, minimize nausea and coughing PRN. -NG clamping trials today. 2. Acute pain -HM MANAGER BUSINESS MANAGEMENT, tylenol 3. Diabetes: -insulin gtt 4. Morbid [...] Dione Grimes MD R-2, General Surgery Pager: [phone] [facility] Department of Surgery Trauma ICU Team Pager (24hrs/day): [phone] I was present with the resident during the history and exam. I discussed the case with the resident and agree with the findings and plan as documented in the resident s note. KELVIN STEPHENS MD [facility] [address] [place] [address] [id number] uOnur patton MD - 11/07/2012 2:37 AM [...] in preservative free NaCl 0.9% 50 mL MANAGER BUSINESS MANAGEMENT infusion Intravenous CON TINUOUS Aracely Flores, DO [...] POD#1 s/p primary repair. 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 public health technician and prn tylenol, continue prozac and zyprexa [...] F: probable remain NPO today A: dilaudid public health technician, prn tylenol S: prn benzos as she is at home T: will start prophylactic lovenox today H: HOB >30 degrees U: pepcid G: insulin gtt ONUR ALLEN MD, PGY3 [facility] [address] [id number] [place] [address] Onelia Shrestha MD - 11/06/2012 8:41 AM PDT [facility] DEPARTMENT OF SURGERY Division of Trauma and Critical Care Emergency General Surgery / Acute Care Surgery Attending Physician: Andie Brian MD Note Date: 11/06/2012 Admission Date: 11/06/2012 DYLAN ROMERO, [id number] Hospital Day #0 OVERNIGHT EVENTS: anxious SUBJECTIVE: [...] zenia LABS: reviewed and are available in [employer] (if new data) IMAGING: VASCULAR: IMPRESSION: Dylan [...] Avyesenia | | | | | | [facility] [place] | | | | | | [address] | | | | | | [phone] | | | | | | | | +--------+ + + + + | 04/04/ | Telephone-S | Surgery | Orquidea Cristobal, | | | 2019 | cheduhipolito | | MANAGER CASINO [address] | | | | | | [place], [place] | | | | | | [address] | | | | | | [phone] | | | | | | | [...] Mae | | | | | | Victor | | | | + + + [...] AMES | [address] | [place], [place] | | | [facility] | [address] | [address] | | | TESTS | | | [...] [facility] | [address] | [place], [place] | | | [facility] CARE | [address] | [address] | | | TESTS | | | [...] LABORATORY | [address] | [place] [address] | | | SERVICES, CORE | [address] [...] [facility] | [address] | [place] [address] | | | LYDIA RANGEL | [address] [...] + + | [facility] | [address] | [place] [address] | | | SERVICES, CORE | CLARENCE [address]ON[address] | | | + + + + + CAPILLARY BLOOD GLUCOSE (NO CHG) POC (11/11/2012 9:49 PM PDT) + +---------+ [...] [facility] | [address] | [place], [place] | | | [facility] | [address] | [address] | | | TESTS | | | [...] [facility] | [address] | [place], [place] | | | [facility] [facility] | [facility] | [address] | | | TESTS | | | [...] AMES | [address] | [place], [place] | | | [facility] | [address] | [address] | | | TESTS | | | [...] [facility] | [address] | [place], [place] | | | [facility] | [address] | [address] | | | TESTS | | | [...] | [facility] | [address] | [place], [place] | | | [facility] [facility] | [address] | [address] | | | TESTS | | | [...] [facility] | [address] | [place] [address] | | | SERVICES, CORE | PARK [...] 9 | 4 - 11 mmol/L | [facility] | | | GAP(ALB | | | [...] + + + | [facility] | [address] | [place] [address] | | | SERVICES, CORE | CLARENCE [...] + + | [facility] | [address] | [place] [address] | | | CLAIRE, LYDIA | CLARENCE [...] (H) | 60 - 99 mg/dL | [facility] - | | | GLUCOSE, | [...] AMES | [address] | [place], [place] | | | [facility] [facility] | [address] | [address] | | | TESTS | | | [...] [facility] | [address] | [place], [place] | | | [facility] | [address] | [address] | | | TESTS | | | [...] [facility] | [address] | [place], [place] | | | [facility] | [facility] | [address] | | | TESTS | | | [...] (H) | 60 - 99 mg/dL | [facility] - | | | GLUCOSE, | [...] [facility] | [address] | [place], [place] | | | [facility] [facility]ARE | [address] | [address] | | | TESTS | | | [...] AMES | [address] | [place], [place] | | | [facility] CARE | [facility] | [address] | | | TESTS | | | [...] + + | [facility] | [address] | [place] [address] | | | SERVICES, LYDIA | CLARENCE [...] | [facility] | [address] | [place] [address] | | | SERVICES, CORE | PARK [...] | + + + + + | [facility] | [address] | [place] [address] | | | SERVICES, CORE | CLARENCE [...] [facility] | [address] | [place], [place] | | | [facility]ARE | [address] | [address] | | | TESTS | | | [...] [facility] | [address] | [place], [place] | | | [facility] [facility]ARE | [facility] | [address] | | | TESTS | | | [...] AMES | [address] | [place], [place] | | | [facility]ARE | [address] | [address] | | | TESTS | | | [...] | | Final CULTURE | | [place] | | | | RESULT:>100,000 cfu/ml | [...] + | [facility] | [address] | [place] [address] | | | [place] | | | | + + + + + MADAY CEDILLO (11/09/2012 6:57 AM PDT) + + + [...] + + | [facility] | [address] | [place] [address] | | | SERVICES, CORE | CLARENCE [...] HOSPITAL LABORATORY | [address] | [place] [address] | | | LYDIA RANGEL | CLARENCE [...] 90 | 60 - 99 mg/dL | [facility] - | | | GLUCOSE, | [...] AMES | [address] | [place], [place] | | | [facility] [facility]ARE | [address] | [address] | | | TESTS | | | [...] the MDRD equation recommended by the | [facility] | | National Kidney Disease [...] | [facility] | [address] | [place] [address] | | | LYDIA RANGEL | CLARENCE [...] LABORATORY | [address] | [place] [address] | | | SERVICES, CORE | PARK [...] | [facility] | [address] | [place] [address] | | | SERVICES, CORE | CLARENCE [...] 86 | 60 - 99 mg/dL | [facility] - | | | GLUCOSE, | [...] + + + | [facility] | [address] | [place], [place] | | | [facility] | [address] | [address] | | | TESTS | | | [...] [facility] | [address] | [place], [place] | | | [facility]ARE | [address] | [address] | | | TESTS | | | [...] - [facility] | [address] | [place], [place] | | | [facility] [facility] | [facility] | [address] | | | TESTS | | | [...] HOSPITAL LABORATORY | [address] | [place] [address] | | | SERVICES, CORE | [address] | | | + + + + + MAGNESIUM, PLASMA (11/08/2012 7:48 AM PDT) + +---------+ + + + | Component | Value | Ref Range | Performed | Pathologist | | | | | At | Signature | + +---------+ + + + | MAGNESIUM,P | 1.4 (L) | 1.8 - 2.5 mg/dL | [facility] | | | LASMA | | [...] + + | [facility] | [address] | [place] [address] | | | SERVICES, CORE | CLARENCE [...] the MDRD equation recommended by the | [facility] | | National Kidney Disease [...] | [facility] | [address] | [place] [address] | | | LYDIA RANGEL | CLARENCE [...] - [facility] | [address] | [place], [place] | | | [facility]ARE | [address] | [address] | | | TESTS | | | [...] AMES | [address] | [place], [place] | | | [facility] [facility]ARE | [address] | [address] | | | TESTS | | | [...] [facility] | [address] | [place], [place] | | | [facility] | [address] | [address] | | | TESTS | | | [...] [facility] | [address] | [place] [address] | | | SERVICES, CORE | PARK [...] [facility] | [address] | [place] [address] | | | SERVICES, CORE | PARK [...] + + | [facility] | [address] | [place] [address] | | | SERVICES, CORE | [address] | | | + + + + + X-RAY PORTABLE CHEST 1 VIEW (11/06/2012 4:46 PM PDT) + + + + + + | Component | Value | Ref Range | Performed | Pathologist | | | | | At | Signature | + + + + + + | X-RAY | STUDY: [place] CHEST 1 VIEW | | | | | PORTABLE | 11/06/12 16:46:00 | | | | | CHEST 1 | INDICATION: Right upper | | | | | VIEW | lobe opacity. | | | | | | COMPARISON: Earlier same | | | | | | day a STUDY: [place] CHEST 1 | | | | | [...] | | + +---------+ + + | [facility] DEPARTMENT OF | | | | | RADIOLOGY | | | | + +---------+ + + X-RAY PORTABLE CHEST 1 VIEW (11/06/2012 4:30 PM PDT) + + + + + + | Component | Value | Ref Range | Performed | Pathologist | | | | | At | Signature | + + + + + + | X-RAY | STUDY: [place] CHEST 1 VIEW | | | | [...] [facility] | [address] | [place] [address] | | | SERVICES, CORE | CLARENCE [...] HOSPITAL LABORATORY | [address] | [place] [address] | | | SERVICES, CORE | CLARENCE [...] | + + + + + | [facility] | [address] | [place] [address] | | | SERVICES, CORE | CLARENCE [...] [facility] | [address] | [place], [place] | | | [facility] CARE | [address] | [address] | | | TESTS | | | [...] [facility] | [address] | [place] | | | [facility] CARE | [address] | [address] | | | TESTS | | | [...] [facility] | [address] | [place], [place] | | | [facility] POINT OF CARE | [facility] | [address] | | | TESTS | | | [...] [facility] | [address] | [place], [place] | | | [facility]ARE | [address] | [address] | | | TESTS | | | [...] [facility] | [address] | [place], [place] | | | [facility]ARE | [address] | [address] | | | TESTS | | | [...] - [facility] | [address] | [place], [place] | | | [facility] CARE | [facility] | [address] | | | TESTS | | | | + + + + + CHLORIDE (ART)VALERIE SOR (11/06/2012 11:08 AM PDT) + +-------+ + + + | Component | Value | Ref Range | Performed | Pathologist | | | | | At | Signature | + +-------+ + + + | CHLORIDE, | 107 | 97 - 108 mmol/L | [facility] - | | | POC [...] AMES | [address] | [place], [place] | | | [facility] | [facility] | [address] | | | TESTS | | | [...] [facility] | [address] | [place], [place] | | | JUS[facility]NE DAWN OF CARE | [address] | [address] | | | TESTS | | | [...] | [facility] | [address] | [place], [place] | | | [facility] CARE | [address] | [address] | | | TESTS | | | [...] [facility] | [address] | [place], [place] | | | [facility] CARE | [address] | [address] | | | TESTS | | | [...] [facility] | [address] | [place], [place] | | | [facility] CARE | [address] | [address] | | | TESTS | | | [...] | [facility] | [address] | [place] [address] | | | SERVICES, | [address] [...] [facility]ES | [address] | [place], [place] | | | [facility] | [facility] | [address] | | | TESTS | | | [...] [facility] | [address] | [place] [address] | | | SERVICES, | [address] [...] | + + + + + | [facility] | [address] | [place] [address] | | | SERVICES, | [address] [...] LABORATORY | [address] | [place] [address] | | | SERVICES, CORE | PARK [...] HOSPITAL LABORATORY | [address] | [place] [address] | | | SERVICES, CORE | PARK [...] + + + | [facility] | [address] | [place] [address] | | | SERVICES, CORE | PARK [...] + + + | [facility] | [address] | [place] [address] | | | SERVICES, CORE | CLARENCE [...] HOSPITAL LABORATORY | [address] | [place] [address] | | | SERVICES, CORE | [address] | | | + + + + + 12 LEAD ECG (11/06/2012 5:17 AM PDT) + + + + + + | Component | Value | Ref Range | Performed | Pathologist | | | | | At | Signature | + + + + + + | VENTRICULAR | 96 | BPM | [facility] | | | RATE | | [...] view image for the detailed interpretation from [employer] results. | CARDIOLOGY | + + + + + + + + | Performing | Address | City/State/Zipcode | Phone Number | | Organization | | | | + + + + + | [facility] | [address] | [place], [place] | | | CARDIOLOGY | [address] | [address] | | + + + + + [...] | + + + + + | [facility] | [address] | [place] [address] | | | SERVICES, CORE | CLARENCE [...] [facility] | [address] | [place] [address] | | | SERVICES, CORE | PARK [...] | 1 tablet | | | | ioaluaxgyh-ixdiarqeyapwu-hpdbymca | | 13 8:02 | | | [...] famotidine in NS (aka PEPCID) | New | 11/11/19 | 20 mg | 200 [...] 13 7:36 | | | | | [employer] infusion intravenous, | | PM PDT | [...] | | | | | NEEDED, Starting Thu11/07/12 at | | | | | [...] | | | | Until [facility] 11/11/12 at 0702 | | | [...] 13 9:26 | | | | | [facility] 11/11/12 at 1000 | | AM PDT [...] +---+---+ + +---------+ +------+--------+---+ | nalbuphine (aka ZEENATIN) | New Bag | 11/11/19 | 5 [...] | | last modification) on [facility] 11/11/12 | | | | | [...] +---+---+ + +-------+ +--------+---+---+ | traZODone (aka NUPURYRPRATIBHA) tablet | Given | 11/12/19 | 150 [...]
--- OUTSIDE RECORDS SUMMARY | ~2020-02-27 | XMS | Encounter Summary ---
Demographics + + + | Address | [address] | | | [place] [address] | + + + | Home Phone [...] [place], [place] | | | | | [address] | | + + + + + | Ellie Vang | ECON | Unknown | | + + + + + Care Team Providers + +------+ + | Care Cooker Meal Name | Role | Phone | + [...] | | | | | | [place], [place] | | | | | | [address] | | | | | | [phone] | | | +--------+ + + + [...] | | | | | | [place], [place] | | | | | | [address] | | | | | | [phone] | | | | | | | | +--------+ + + + + | 04/04/ | Telephone-S | Surgery | Orquidea Cristobal, | | | 2019 | sherrill | | DRIVER SUPERVISOR [address] | | | | | | [place], [place] | | | | | | [address] | | | | | | [phone] | | | | | | | | +--------+ + + + + documented as of this encounter Visit Diagnoses Not on filedocumented in this encounter"
--- OUTSIDE RECORDS SUMMARY | ~2020-02-27 | XMS | Encounter Summary ---
Demographics + + + | Address | [address] | | | [place] [address] | + + + | Home Phone [...] [place], [place] | | | | | [address] | | + + + + + | Ellie Vang | ECON | Unknown | | + + + + + Care Team Providers + +------+ + | Care Pattern Chart Writer Name | Role | Phone | [...] | | | Unspecified | Kathy Feliciano PLYWOOD MATCHER | MD Randell | | | | | essential | [address] | [address] | | | | | hypertension | [address], | Ave | | | | | Type II or | [address] | [place], [place] | | | | | unspecified | [place], [place] | [address] | | | | | type | [address] | Phone: | | | | | diabetes | Phone: | [phone] | | | | | mellitus | [phone] | Fax: | | | | | without | Fax: | [phone] | | | | | mention of | [phone] | | | | | | complication [...] | 2015 | Visit | Preventive at [facility] | MD [address] | mellitus (HCC) | | | | [address] | [facility] [place] | (Primary Dx) | | | | [facility] | [address] | | | | | and Healing, | [phone] | | | | | [address] | | | | | | [place], [place] | | | | | | [address] | | | | | | [phone] | | | +--------+---------+ + + + [...] Ave | | | | | | [place], [place] | | | | | | [address] | | | | | | [phone] | | | | | | | | +--------+ + + + + | 04/04/ | Telephone-S | Surgery | Orquidea Cristobal, | | | 2019 | cheduled | | FREELANCE WEB DESIGNER [address] | | | | | | [place], [place] | | | | | | [address] | | | | | | [phone] | | | | | | | [...] [facility] | [address] | [place] [address] | | | SERVICES, CORE | PARK [...] + | [facility] | [address] | [place] [address] | | | SERVICES, SPECIAL | PARK [...]
--- OUTSIDE RECORDS SUMMARY | ~2020-02-27 | XMS | Encounter Summary ---
Demographics + + + | Address | [address] | | | [place] [address] | + + + | Home Phone [...] [place], [place] | | | | | [address] | | + + + + + | Ellie Vagn | ECON | Unknown | | + + + + + Care Team Providers + +------+ + | Care Tongue Carrier Name | Role | Phone | + [...] | | | | | Center at [facility] [address] | [facility] [place] | | | | | [address] | [address] | | | | | [facility] and | [phone] | | | | | [facility] 2 | | | | | | [facility] [place] | | | | | | [address] | | | | | | [phone] | | | +--------+ + + + [...] Ave | | | | | | [place], [place] | | | | | | [address] | | | | | | [phone] | | | | | | | | +--------+ + + + + | 04/04/ | Telephone-S | Surgery | Orquidea Cristobal, | | | 2019 | cheduled | | EDI ANALYST [address] | | | | | | [place], [place] | | | | | | [address] | | | | | | [phone] | | | | | | | | +--------+ + + + + documented as of this encounter Visit Diagnoses Not on filedocumented in this encounter"
--- OUTSIDE RECORDS SUMMARY | ~2020-02-27 | XMS | Encounter Summary ---
Demographics + + + | Address | [address] | | | [place] [address] | + + + | Home Phone [...] [place], [place] | | | | | [address] | | + + + + + | Ellie Vang | ECON | Unknown | | + + + + + Care Team Providers + +------+ + | Care Chancellor Name | Role | Phone | + +------+ + | Fadi Goodrich DO | PCP | | + +------+ + Encounter Details +--------+ + + + + | Date | Type | Department | Care Team | Description | +--------+ + + + + | 11/09/ | Abstract | Cardiology | Randell Franks, | | | 2014 | | Preventive at [facility] | MD [address] | | | | | [address] | [place], [place] | | | | | [facility] | [address] | | | | | and [place], | [phone] | | | | | Building [address] | | | | | | [facility] [place] | | | | | | [address] | | | | | | [phone] | | | +--------+ + + + [...] Ave | | | | | | [place], [place] | | | | | | [address] | | | | | | [phone] | | | | | | | | +--------+ + + + + | 04/04/ | Telephone-S | Surgery | Orquidea Cristobal, | | | 2019 | cheduled | | INDUSTRIAL ENG [address] | | | | | | [place], [place] | | | | | | [address] | | | | | | [phone] | | | | | | | | +--------+ + + + + documented as of this encounter Visit Diagnoses Not on filedocumented in this encounter"
--- OUTSIDE RECORDS SUMMARY | ~2020-02-27 | XMS | Encounter Summary ---
Demographics + + + | Address | [address] | | | [place] [address] | + + + | Home Phone [...] [place], [place] | | | | | [address] | | + + + + + | Ellie Vang | ECON | Unknown | | + + + + + Care Team Providers + +------+ + | Care Slip Presser Name | Role | Phone | + +------+ + | Kenyatta Cardenas MD | PCP | | + +------+ + Encounter Details +--------+ + + + + | Date | Type | Department | Care Team | Description | +--------+ + + + + | 05/03/ | Inside | NKECHI DUMAS at [facility] | Ion Pandey, | | | 2018 | Referral | [facility] [address] | MD [address] | | | | Order | [address] for | [place], [place] | | | | | Health and Healing, | [address] | | | | | [address] | | | | | | [facility] [place] | | | | | | [address] | | | | | | [phone] | | | +--------+ + + + [...] | | | | | | [place], [place] | | | | | | [address] | | | | | | [phone] | | | | | | | | +--------+ + + + + | 04/04/ | Telephone-S | Surgery | Orquidea Cristobal, | | | 2020 | cheduled | | TOE TRIMMER [address] | | | | | | [place], [place] | | | | | | [address] | | | | | | [phone] | | | | | | | [...]
--- OUTSIDE RECORDS SUMMARY | ~2020-02-27 | XMS | Encounter Summary ---
Demographics + + + | Address | [address] | | | [place] [address] | + + + | Home Phone [...] [place], [place] | | | | | [address] | | + + + + + | Ellie Vang | ECON | Unknown | | + + + + + Care Team Providers + +------+ + | Care Tie Binder Name | Role | Phone | [...] | | | | | essential | [address] | [address] | | | | | hypertension | [address], | Ave | | | | | Type II or | [address] | [place], [place] | | | | | unspecified | [place], [place] | [address] | | | | | type | [address] | Phone: | | | | | diabetes | Phone: | [phone] | | | | | mellitus | [phone] | Fax: | | | | | without | Fax: | [phone] | | | | | mention of | [phone] | | | | | | complication [...] | 2013 | Visit | Preventive at [facility] | MD [address] | mellitus (HCC) | | | | [address] | [place], [place] | (Primary Dx); | | | | [facility] | [address] | Migraine headache | | | | and Healing, | [phone] | | | | | Building [address] | | | | | | [place], [place] | | | | | | [address] | | | | | | [phone] | | | +--------+---------+ + + + [...] twice w eekly (on Thursday and ). ferrous sulfate 325 [...] she is hypothyroid and put her on Aulander Thyroid hormone replacement therapy. Her heart rate [...] Ave | | | | | | [place], [place] | | | | | | [address] | | | | | | [phone] | | | | | | | | +--------+ + + + + | 04/04/ | Telephone-S | Surgery | Orquidea Cristobal, | | | 2019 | cheduled | | STRUCTURAL IRON ERECTOR [address] | | | | | | [facility], [place] | | | | | | [address] | | | | | | [phone] | | | | | | | [...] + + + + + | [facility] | [address] | [place] [address] | | | SERVICES, SPECIAL | PARK [...]
--- OUTSIDE RECORDS SUMMARY | ~2020-02-27 | XMS | Encounter Summary ---
Demographics + + + | Address | [address] | | | [place] [address] | + + + | Home Phone [...] [place], [place] | | | | | [address] | | + + + + + | Ellie Vang | ECON | Unknown | | + + + + + Care Team Providers + +------+ + | Care Publicity Person Name | Role | Phone | + +------+ + | Kenyatta Cardenas MD | PCP | | + +------+ + Encounter Details +--------+ + + + + | Date | Type | Department | Care Team | Description | +--------+ + + + + | 06/06/ | Telephone | Digestive Health | Chilo | | | 2019 | | [place] [address] [address] | MD J[address] | | | | | [address] [facility] | [address] | | | | | for Health and | [place], [place] | | | | | [facility] 2 | [address] | | | | | [place], [place] | [phone] | | | | | [address] | | | | | | [phone] | | | +--------+ + + + [...] | | | | | | [place], [place] | | | | | | [address] | | | | | | [phone] | | | | | | | | +--------+ + + + + | 04/04/ | Telephone-S | Surgery | Orquidea Cristobal, | | | 2019 | cheduled | | ELECTRICITY TRADER [address] | | | | | | [place], [place] | | | | | | [address] | | | | | | [phone] | | | | | | | | +--------+ + + + + documented as of this encounter Visit Diagnoses Not on filedocumented in this encounter"
--- OUTSIDE RECORDS SUMMARY | ~2020-02-27 | XMS | Encounter Summary ---
Demographics + + + | Address | [address] | | | [place] [address] | + + + | Home Phone [...] [place], [place] | | | | | [address] | | + + + + + | Ellie Vang | ECON | Unknown | | + + + + + Care Team Providers + +------+ + | Care It Service Manager Name | Role | Phone [...] | | | | | | [facility] [place], | | | | | | [place] [address] | | | | | | [phone] | | | +--------+ + + + [...] Ave | | | | | | [place], [place] | | | | | | [address] | | | | | | [phone] | | | | | | | | +--------+ + + + + | 04/04/ | Telephone-S | Surgery | Orquidea Cristobal, | | | 2019 | cheduled | | MANAGER LEADERSHIP DEVELOPMENT [address] | | | | | | [place], [place] | | | | | | [address] | | | | | | [phone] | | | | | | | | +--------+ + + + + documented as of this encounter Visit Diagnoses Not on filedocumented in this encounter"
--- OUTSIDE RECORDS SUMMARY | ~2020-02-27 | XMS | Encounter Summary ---
Demographics + + + | Address | [address] | | | [place] [address] | + + + | Home Phone [...] [place], [place] | | | | | [address] | | + + + + + | Ellie Vang | ECON | Unknown | | + + + + + Care Team Providers + +------+ + | Care Bending Machine Operator Name | Role | Phone | + +------+ + | Fadi Goodrich DO | PCP | | + +------+ + Encounter Details +--------+ + + + + | Date | Type | Department | Care Team | Description | +--------+ + + + + | 02/10/ | Abstract | Digestive Health | Hernandez Brian, | | | 2012 | | [place] [address] [address] | [address] [facility] | | | | | [address] [facility] | [facility] | | | | | for [facility] and | [place], [place] | | | | | [facility] 2 | [address] | | | | | [place], [place] | [phone] | | | | | [address] | | | | | | [phone] | | | +--------+ + + + [...] Ave | | | | | | [place], [place] | | | | | | [address] | | | | | | [phone] | | | | | | | | +--------+ + + + + | 04/04/ | Telephone-S | Surgery | Orquidea Cristobal, | | | 2019 | sherrill | | LANGUAGE PATH [address] | | | | | | [place], [place] | | | | | | [address] | | | | | | [phone] | | | | | | | | +--------+ + + + + documented as of this encounter Visit Diagnoses Not on filedocumented in this encounter"
--- OUTSIDE RECORDS SUMMARY | ~2020-02-27 | XMS | Encounter Summary ---
Demographics + + + | Address | [address] | | | [place] [address] | + + + | Home Phone [...] [place], [place] | | | | | [address] | | + + + + + | Ellie Vang | ECON | Unknown | | + + + + + Care Team Providers + +------+ + | Care Renderer Name | Role | Phone | + +------+ + | Fadi Goodrich DO | PCP | | + +------+ + Encounter Details +--------+ + + + + | Date | Type | Department | Care Team | Description | +--------+ + + + + | 06/02/ | Telephone | Digestive Health | Ronna Clarke, | | | 2018 | | Center at [facility] [address] | ACNP [address] | | | | | [address] | Ave [place], [place] | | | | | for Health and | [address] | | | | | [facility] 2 | [phone] | | | | | [place], [place] | | | | | | [address] | | | | | | | [...] [address] | | | | | | [place], [place] | | | | | | [address] | | | | | | [phone] | | | | | | | | +--------+ + + + + | 04/04/ | Telephone-S | Surgery | Orquidea Cristobal, | | | 2019 | cheduhipolito | | HAND THERMAL CUTTER [address] | | | | | | [place], [place] | | | | | | [address] | | | | | | [phone] | | | | | | | | +--------+ + + + + documented as of this encounter Visit Diagnoses Not on filedocumented in this encounter"
--- OUTSIDE RECORDS SUMMARY | ~2020-02-27 | XMS | Encounter Summary ---
Demographics + + + | Address | [address] | | | [place] [address] | + + + | Home Phone [...] + | Katalina Padilla | ECON | [address] | | | | | [place], [place] | | | | | [address] | | + + + + + | Ellie Vang | ECON | Unknown | | + + + + + Care Team Providers + +------+ + | Care Fish Filleter Name | Role | Phone | + +------+ + | Kenyatta Cardenas MD | PCP | | + +------+ + Encounter Details +--------+ + + + + | Date | Type | Department | Care Team | Description | +--------+ + + + + | 03/01/ | Procedure | Diagnostic Imaging | | | | 2019 | Pass | Services at [facility] | | | | | | [address] | | | | | | Lesly [place]A | | | | | | [facility], [address] [place] [address] | | | | | | [place], [place] | | | | | | [address] | | | | | | [phone] | | | +--------+ + + + [...] | 2020 | Visit | | [address] | | | | | | [place], [place] | | | | | | [address] | | | | | | [phone] | | | | | | | | +--------+ + + + + | 04/04/ | Telephone-S | Surgery | Orquidea Cristobal, | | | 2020 | sherrill | | WATCH CASER [address] | | | | | | [place] | | | | | | [address] | | | | | | [phone] | | | | | | | | +--------+ + + + + documented as of this encounter Visit Diagnoses Not on filedocumented in this encounter"
--- OUTSIDE RECORDS SUMMARY | ~2020-02-27 | XMS | Encounter Summary ---
Demographics + + + | Address | [address] | | | [place] [address] | + + + | Home Phone [...] [place], [place] | | | | | [address] | | + + + + + | Ellie Vang | ECON | Unknown | | + + + + + Care Team Providers + +------+ + | Care Vessel Scrapper Name | Role | Phone | + [...] | | 2014 | | Preventive at [facility] | MD [address] | ([place]); | | | | [address] | [place], [place] | Refill Request | | | | [facility] | [address] | | | | | and [place], | [phone] | | | | | [place] [address] | | | | | | [place], [place] | | | | | | [address] | | | | | | [phone] | | | +--------+--------+ + + + [...] [address] | | | | | | [place], [place] | | | | | | [address] | | | | | | [phone] | | | | | | | | +--------+ + + + + | 04/04/ | Telephone-S | Surgery | Orquidea Cristobal, | | | 2019 | sherrill | | HEALTHCARE FINANCIAL ANALYST [address] | | | | | | [place] | | | | | | [address] | | | | | | [phone] | | | | | | | | +--------+ + + + + documented as of this encounter Visit Diagnoses Not on filedocumented in this encounter"
--- OUTSIDE RECORDS SUMMARY | ~2020-02-27 | XMS | Encounter Summary ---
Demographics + + + | Address | [address] | | | [place] [address] | + + + | Home Phone [...] | Organization | [facility] [place] [...] Providers + +------+ + | Care Pharmacy Informaticist Name | Role | Phone | [...] + | 01/11/ | Telephone | [facility] | Camille De La Paz, | Referral | | 2020 | | NEUROLOGY [address] | | | | | [address] | [facility] | | | | | [place], [place] | [place] [address] | | | | | [address] | [phone] | | | | | [phone] | | | +--------+ + + + [...] from referral. Home number elephone Encounter - Marlen gastelumezequiel [place] Nora - 01/12/2020 2:26 PM PDTMisty, is returning [...] transfer the call to a romeo ellis director radiation oncology was caller made aware that if at [...] | | | | | [place] [address] | | | | | | [phone] | | | | | | | | +--------+ + + + + | 03/29/ | Office | Cardiology | Sulema Altamirano | | | 2019 | Visit | | [address] | | | | | | [address] | | | | | | [place] [address] | | | | | | [phone] | | | | | | | | +--------+ + + + + documented as of this encounter Visit Diagnoses Not on filedocumented in this encounter"
--- OUTSIDE RECORDS SUMMARY | ~2020-02-27 | XMS | Encounter Summary ---
Demographics + + + | Address | [address] | | | [place] [address] | + + + | Home Phone [...] [place], [place] | | | | | [address] | | + + + + + [...] 2017 | | [address] | [address] | Y GASTRIC BYPASS | | | | [facility] | [place], [place] | | | | | Hospital Admitting | [address] | | | | | Desk Located on the | [phone] | | | | | 9th floor | | | | | | [place], [place] | | | | | | [address] | | | +--------+---------+ + + + [...] - 03/03/2018 9:49 AM PDT [facility] RED SURGERY INPATIENT DISCHARGE SUMMARY [...] to a bariatric full liquid diets. Our [facility] dietitian was consulted and [...] at minimum. 5. Follow with PCP for Dry Drug Worker within 1 - 2 weeks of [...] mg by mouth two times daily. CALCIUM CRB&[id number]-W2-[id number]-GENIS ORAL Take 2 tablets by mouth two [...] yogurt or kefir. Zaria's Yogurt or Kefir, HEMS Technologyfield Yogurt, and iTwinn i Irish Yogurt are common brands with beneficial probiotics. [...] over the counter at most [facility] stores. Nausea/Vomiting/Difficulty Swallowing Nausea/Vomiting/Difficulty [...] hours per your instructions. Some medications, like [place], have Tylenol in it. Make sure you [...] (PCP) as this clinic does not provide [facility] services. When to Call [...] hours by calling the surgery office at [phone]. - After hours, weekends and holidays, you may call the hospital draw operator at [phone] an d have the arson and bomb investigator Red Surgery Team paged. OTHER DISCHARGE ORDERS [...] at minimum. 5. Follow with PCP for Dry Drug Worker within 1 - 2 weeks of [...] 03/10/2018 1:30 PM [facility] at [facility] 6th Floor [phone] FO OD AND NUT 03/10/2018 3:05 PM Ronna Clarke Digestive [facility] at [facility] 6th Floor [phone] [facility] 04/01/2018 10:30 AM [facility] at [facility] 6th Floor [phone] FO OD AND NUT 04/01/2018 11:00 AM Ion Castanon Digestive [facility] at [facility] 6th Floor [phone] [facility] 05/27/2018 2:30 PM [facility] at [facility] 6th Floor [phone] FO OD AND NUT 05/27/2018 3:05 PM [facility] 6th Floor [phone] [facility] 05/27/2018 4:30 PM [facility] at [facility] 15th Floor [phone] Comprehensiv 06/04/2018 10:35 AM Randell Franks Cardiology Preventive at [facility] [phone] Cardiology Discharging Physician: KAIN Agee Attending Physician: Ion Castanon MD [facility] Red Surgery Pager# [phone] 9:50 AM 03/03/2018 documented in this enco [...] | | 0 | | | | CRB&AGQ-G3-PRF38-GEN | mouth two times | | | [...] date of discharge 03/03/18 PARTHA Rajwinder MS3 [facility] [employer] Demarcus Menon MD - [...] for care ride home (pt lives in [place]) Demarcus Alas M.D. General Surgery Resident PGY-1 Pager: [phone] Ion Ferrari MD - 10:00 AM PDTI [...] Visit | | MD [address] | | | | | | [place], [place] | | | | | | [address] | | | | | | [phone] | | | | | | | | +--------+ + + + + | 04/04/ | Telephone-S | Surgery | Orquidea Cristobal, | | | 2019 | cheduled | | NUCLEAR EQUIPMENT RESEARCH ENGINEER [address] | | | | | | [place], [place] | | | | | | [address] | | | | | | [phone] | | | | | | | [...] POC | | PDT | over, adult ([facility]) | results section. | + +--------+ + + + | CAPILLARY BLOOD | Routin | 03/03/2018 | Morbid obesity | Results for this | | GLUCOSE (NO CHG), | e | 6:28 AM | with BMI of 70 and | procedure are in the | | POC | | PDT | over, adult ([facility]) | results section. | + +--------+ + + + | CAPILLARY BLOOD | Routin | 03/02/2018 | Morbid obesity | Results for this | | GLUCOSE (NO CHG), | e | 9:17 PM | with BMI of 70 and | procedure are in the | | POC | | PDT | over, adult ([facility]) | results section. | + +--------+ + + + | CAPILLARY BLOOD | Routin | 03/02/2018 | Morbid obesity | Results for this | | GLUCOSE (NO CHG), | e | 6:50 PM | with BMI of 70 and | procedure are in the | | POC | | PDT | over, adult ([facility]) | results section. | + +--------+ + + + | CAPILLARY BLOOD | Routin | 03/02/2018 | Morbid obesity | Results for this | | GLUCOSE (NO CHG), | e | 3:46 PM | with BMI of 70 and | procedure are in the | | POC | | PDT | over, adult ([facility]) | results section. | + +--------+ + + + | CAPILLARY BLOOD | Routin | 03/02/2018 | Morbid obesity | Results for this | | GLUCOSE (NO CHG), | e | 2:36 PM | with BMI of 70 and | procedure are in the | | POC | | PDT | over, adult ([facility]) | results section. | + +--------+ + + + | CAPILLARY BLOOD | Routin | 03/02/2018 | Morbid obesity | Results for this | | GLUCOSE (NO CHG), | e | 1:33 PM | with BMI of 70 and | procedure are in the | | POC | | PDT | over, adult ([facility]) | results section. | + +--------+ + + + | CAPILLARY BLOOD | Routin | 03/02/2018 | Morbid obesity | Results for this | | GLUCOSE (NO CHG), | e | 11:36 AM | with BMI of 70 and | procedure are in the | | POC | | PDT | over, adult ([facility]) | results section. | + +--------+ + + + | CAPILLARY BLOOD | Routin | 03/02/2018 | Morbid obesity | Results for this | | GLUCOSE (NO CHG), | e | 10:32 AM | with BMI of 70 and | procedure are in the | | POC | | PDT | over, adult ([facility]) | results section. | + +--------+ + + + | CAPILLARY BLOOD | Routin | 03/02/2018 | Morbid obesity | Results for this | | GLUCOSE (NO CHG), | e | 9:23 AM | with BMI of 70 and | procedure are in the | | POC | | PDT | over, adult ([facility]) | results section. | + +--------+ + + + | CAPILLARY BLOOD | Routin | 03/02/2018 | Morbid obesity | Results for this | | GLUCOSE (NO CHG), | e | 8:36 AM | with BMI of 70 and | procedure are in the | | POC | | PDT | over, adult ([facility]) | results section. | + +--------+ + + + | CAPILLARY BLOOD | Routin | 03/02/2018 | Morbid obesity | Results for this | | GLUCOSE (NO CHG), | e | 7:35 AM | with BMI of 70 and | procedure are in the | | POC | | PDT | over, adult ([facility]) | results section. | + +--------+ + + + | CAPILLARY BLOOD | Routin | 03/02/2018 | Morbid obesity | Results for this | | GLUCOSE (NO CHG), | e | 6:33 AM | with BMI of 70 and | procedure are in the | | POC | | PDT | over, adult ([facility]) | results section. | + +--------+ + + + | CAPILLARY BLOOD | Routin | 03/02/2018 | Morbid obesity | Results for this | | GLUCOSE (NO CHG), | e | 5:28 AM | with BMI of 70 and | procedure are in the | | POC | | PDT | over, adult ([facility]) | results section. | + +--------+ + + + | CAPILLARY BLOOD | Routin | 03/02/2018 | Morbid obesity | Results for this | | GLUCOSE (NO CHG), | e | 4:36 AM | with BMI of 70 and | procedure are in the | | POC | | PDT | over, adult ([facility]) | results section. | + +--------+ + + + | CAPILLARY BLOOD | Routin | 03/02/2018 | Morbid obesity | Results for this | | GLUCOSE (NO CHG), | e | 2:46 AM | with BMI of 70 and | procedure are in the | | POC | | PDT | over, adult ([facility]) | results section. | + +--------+ + + + | CAPILLARY BLOOD | Routin | 03/02/2018 | Morbid obesity | Results for this | | GLUCOSE (NO CHG), | e | 12:32 AM | with BMI of 70 and | procedure are in the | | POC | | PDT | over, adult ([facility]) | results section. | + +--------+ + + + | CAPILLARY BLOOD | Routin | 03/01/2018 | Morbid obesity | Results for this | | GLUCOSE (NO CHG), | e | 10:31 PM | with BMI of 70 and | procedure are in the | | POC | | PDT | over, adult ([facility]) | results section. | + +--------+ + + + | CAPILLARY BLOOD | Routin | 03/01/2018 | Morbid obesity | Results for this | | GLUCOSE (NO CHG), | e | 8:21 PM | with BMI of 70 and | procedure are in the | | POC | | PDT | over, adult ([facility]) | results section. | + +--------+ [...] POC | | PDT | over, adult ([facility]) | results section. | + +--------+ + + + | CAPILLARY BLOOD | Routin | 03/01/2018 | Morbid obesity | Results for this | | GLUCOSE (NO CHG), | e | 3:31 PM | with BMI of 70 and | procedure are in the | | POC | | PDT | over, adult ([facility]) | results section. | + +--------+ + + + | CAPILLARY BLOOD | Routin | 03/01/2018 | Morbid obesity | Results for this | | GLUCOSE (NO CHG), | e | 3:29 PM | with BMI of 70 and | procedure are in the | | POC | | PDT | over, adult ([facility]) | results section. | + +--------+ + + + | CAPILLARY BLOOD | Routin | 03/01/2018 | Morbid obesity | Results for this | | GLUCOSE (NO CHG), | e | 2:30 PM | with BMI of 70 and | procedure are in the | | POC | | PDT | over, adult ([facility]) | results section. | + +--------+ + + + | CAPILLARY BLOOD | Routin | 03/01/2018 | Morbid obesity | Results for this | | GLUCOSE (NO CHG), | e | 1:35 PM | with BMI of 70 and | procedure are in the | | POC | | PDT | over, adult ([facility]) | results section. | + +--------+ + + + | CAPILLARY BLOOD | Routin | 03/01/2018 | Morbid obesity | Results for this | | GLUCOSE (NO CHG), | e | 12:16 PM | with BMI of 70 and | procedure are in the | | POC | | PDT | over, adult ([facility]) | results section. | + +--------+ [...] POC | | PDT | over, adult ([facility]) | results section. | + +--------+ + + + | LAPAROSCOPIC | Electi | 03/01/2018 | Morbid obesity | | | NISH-EN-Y GASTRIC | ve | 8:31 AM | ([facility]) | | | BYPASS | Surgic [...] [place] | [address] | [place], [place] | | | [facility] | [address] | [address] | | | TESTS | | | [...] | [facility] | [address] | [place], [place] | | | [facility] | [facility] | [address] | | | TESTS | | | [...] AMES | [address] | [place], [place] | | | [facility] | [address] | [address] | | | TESTS | | | [...] [place] | [address] | [place] | | | [facility] | [address] | [address] | | | TESTS | | | [...] [place] | [address] | [place], [place] | | | [facility] | [address] | [address] | | | TESTS | | | [...] AMES | [address] | [place], [place] | | | [facility] | [address] | [address] | | | TESTS | | | [...] [place] | [address] | [place], [place] | | | [facility] | [address] | [address] | | | TESTS | | | [...] - [place] | [address] | [place], [place] | | | [facility] | [address] | [address] | | | TESTS | | | [...] AMES | [address] | [place], [place] | | | [facility] | [address] | [address] | | | TESTS | | | [...] [place] | [address] | [place], [place] | | | [facility] | [address] | [address] | | | TESTS | | | [...] - [place] | [address] | [place], [place] | | | [facility] | [address] | [address] | | | TESTS | | | [...] AMES | [address] | [place], [place] | | | [facility] | [address] | [address] | | | TESTS | | | [...] [place] | [address] | [place], [place] | | | [facility] | [address] | [address] | | | TESTS | | | [...] - [facility] | [address] | [place], [place] | | | [facility] | [address] | [address] | | | TESTS | | | [...] + | NKECHI AMES | [address] | [place], [place] | | | [facility] | [address] | [address] | | | TESTS | | | [...] [place] | [address] | [place], [place] | | | [facility] | [address] | [address] | | | TESTS | | | [...] [place] | [address] | [place], [place] | | | [facility] | [address] | [address] | | | TESTS | | | [...] AMES | [address] | [place], [place] | | | [facility] | [address] | [address] | | | TESTS | | | [...] [place] | [address] | [place], [place] | | | [facility] | [address] | [address] | | | TESTS | | | [...] [place] | [address] | [place], [place] | | | [facility] | [address] | [address] | | | TESTS | | | [...] AMES | [address] | [place], [place] | | | [facility] | [address] | [address] | | | TESTS | | | [...] [place] | [address] | [place], [place] | | | [facility] | [address] | [address] | | | TESTS | | | [...] - [place] | [address] | [place], [place] | | | [facility] | [address] | [address] | | | TESTS | | | [...] (H) | 70 - 99 mg/dL | [facility] [...] + + + | NKECHI AMES | [address] | [place], [place] | | | [facility] | [address] | [address] | | | TESTS | | | [...] [place] | [address] | [place], [place] | | | [facility] | [address] | [address] | | | TESTS | | | [...] + + | NKECHI AMES | [address] [facility] [address] | [place], [place] | | | [facility] | [address] | [address] | | | TESTS | | | | + + + + + EGD (ESOPHAGOGASTRODUODENOSCOPY) (03/01/2018 11:21 AM PDT) + + + | Narrative | Performed At | + + + | Ion Castanon MD 03/01/2018 12:25 PM Date of Procedure: | | | 03/01/18 Primary Surgeon: Ion Castanon MD Co Surgeon or | | | assistant women's tennis coach: Eldon Gonzalez MD, Chief Resident Alexx | [...] The jejunum was divided with 60 mm [place] stapler with white | | | load [...] created in each limb and a 60mm [place] stapler | | | with white load was fired to create a [id number] | | | jejunojejunostomy. The anastamosis was confirmed to be widely | | | patent and hemostatic. The common enterotomy was closed by placing | | | 2 stay sutures along the enterotomy for retraction and firing an | | | [place] 60mm stapler with white load across the [...] | | | was entered. The 60mm [place] stapler with blue load was placed | [...] blue load of the 60mm stapler. The [place] was then fired | | | longitudinally towards the angle of His to create the gastric pouch, | | | leaving the gastrotomy from foreign body removal, on the pouch. | | | Dissection was performed retrogastric to connect posterior and | | | anterior dissection planes and ensure adequate fundus exclusion. | | | Additional fires of the [place] stapler were performed with blue | | [...] with | | | 5 mm clip pressing department supervisor. A 25mm Orvil was passed transorally by [...] was closed with 60mm | | | [place] stapler with a white load. Medially and [...] present | | | as my assistant women's tennis coach for the entire procedure, given the technically | | | challenging nature of this procedure. She assisted in all critical | | | steps of the procedure. Dr. Gonzalez was present for endoscopy at the | | | end of the procedure. Ion Castanon MD, FACS, [facility] | | | Bariatric Surgery | [...] Co Surgeon or | | | assistant women's tennis coach: Eldon Gonzalez MD, Chief Resident Alexx | [...] The jejunum was divided with 60 mm [place] stapler with white | | | load [...] created in each limb and a 60mm [place] stapler | | | with white load was fired to create a [id number] | | | jejunojejunostomy. The anastamosis was confirmed to be widely | | | patent and hemostatic. The common enterotomy was closed by placing | | | 2 stay sutures along the enterotomy for retraction and firing an | | | [place] 60mm stapler with white load across the [...] | | | was entered. The 60mm [place] stapler with blue load was placed | [...] blue load of the 60mm stapler. The [place] was then fired | | | longitudinally towards the angle of His to create the gastric pouch, | | | leaving the gastrotomy from foreign body removal, on the pouch. | | | Dissection was performed retrogastric to connect posterior and | | | anterior dissection planes and ensure adequate fundus exclusion. | | | Additional fires of the [place] stapler were performed with blue | | [...] with | | | 5 mm clip pressing department supervisor. A 25mm Orvil was passed transorally by [...] was closed with 60mm | | | [place] stapler with a white load. Medially and [...] present | | | as my assistant women's tennis coach for the entire procedure, given the technically | | | challenging nature of this procedure. She assisted in all critical | | | steps of the procedure. Dr. Gonzalez was present for endoscopy at the | | | end of the procedure. Ion Castanon MD, FACS, [facility] | | | Bariatric Surgery | [...] AMES | [address] | [place], [place] | | | [facility] | [facility] | [address] | | | TESTS | | | [...]
--- OUTSIDE RECORDS SUMMARY | ~2020-02-27 | XMS | Encounter Summary ---
Demographics + + + | Address | [address] | | | [place] [address] | + + + | Home Phone [...] [place], [place] | | | | | [address] | | + + + + + | Ellie Vang | ECON | Unknown | | + + + + + Care Team Providers + +------+ + | Care Recreation Attendant Supervisor Name | Role | Phone | + +------+ + | Fadi Goodrich DO | PCP | | + +------+ + Encounter Details +--------+ + + + + | Date | Type | Department | Care Team | Description | +--------+ + + + + | 02/13/ | Telephone | Cardiology | Randell Franks, | | | 2016 | | [facility]ive at [facility] | MD [address] | | | | | [address] | [facility] [place] | | | | | [facility] | [address] | | | | | and [place], | [phone] | | | | | [address] | | | | | | [facility] [place] | | | | | | [address] | | | | | | [phone] | | | +--------+ + + + [...] Ave | | | | | | [place], [place] | | | | | | [address] | | | | | | [phone] | | | | | | | | +--------+ + + + + | 04/04/ | Telephone-S | Surgery | Orquidea Cristobal, | | | 2019 | cheduled | | SUPERVISOR PLASTICS [address] | | | | | | [place], [place] | | | | | | [address] | | | | | | [phone] | | | | | | | | +--------+ + + + + documented as of this encounter Visit Diagnoses Not on filedocumented in this encounter"
--- OUTSIDE RECORDS SUMMARY | ~2020-02-27 | XMS | Encounter Summary ---
Demographics + + + | Address | [address] | | | [place] [address] | + + + | Home Phone [...] [place], [place] | | | | | [address] | | + + + + + | Ellie Vang | ECON | Unknown | | + + + + + Care Team Providers + +------+ + | Care Grades 1 Through 6 Teacher Name | Role | Phone | [...] | | | | | Procedures | [place], [place] | [place], [place] | | | | | CONSULT TO | [address] | [address] | | | | | CAR | Phone: | Phone: | | | | | PREVENTATIVE | [phone] | [phone] | | | | | [facility] - | Fax: | Fax: | | | | | LIPIDS | [phone] | [phone] | +--------+--------+ + + + + Encounter Details +--------+---------+ + + + | Date | Type | Department | Care Team | Description | +--------+---------+ + + + | 09/11/ | Office | Cardiology | LissethOlga Lidia, | Morbid obesity with | | 2017 | Visit | Preventive at [facility] | [address] | BMI of 70 and over, | | | | [address] | [address] | adult (HCC) (Primary | | | | Center for [facility] | [place], [place] | Dx) | | | | and Healing, | [address] | | | | | [address] | | | | | | [place], [place] | | | | | | [address] | | | | | | [phone] | | | +--------+---------+ + + + [...] Dietitian: Olga Lidia Montanez RD, LD [facility] Bariatric department (to reschedule classes): [phone] Goals: 1. Try to stop buying Pop-Tarts 2. Replace afternoon snack (think of this as lunch) with vegetables or fruit -cucumbers, carrots, broccoli, cauliflower, etc. -try making ranch dip w/ nonfat plain yogurt (regular or Ugandan) (or mix yogurt w/ salsa; o r chipotle hot sauce & twin hills juice) 3. Snack ideas: -fruit -vegetables (with hummus or yogurt dip) -Ugandan yogurt - light (have w/ fruit if you're still hungry) -applesauce - unsweetened, w/ lowfat string cheese -1/4 cup nuts -lowfat string cheese -low-fat or non-fat cottage cheese w/ tomatoes 4. Aim for 60-80 grams of protein a day (see list) 5. Add Ugandan yogurt to breakfast Heart Protection Kitchen from [facility] Healthy eating made simple. What: FREE heart-healthy cooking demonstrations led by guest shaping machine tender and nutrition experts. Samples are provided! Where: [facility] ([facility]), September, 2nd floor teaching kitchen When: All classes from 11:00am-12:00pm ? October 12 (led by Dr. Paulino Carreno MD) Please contact Keerthi Boyer at [phone] or email at [email or web address] for information on upcoming classes and to register. Space is limited - reserve your seat today! Want more info on what to eat? Watch the Mobile[employer] video, "Healthy Eating 101," at [email or web address] documented in this encounter Progress Notes Olga Lidia Montanez RD - 09/11/2017 2:30 PM PSTFormatting of this note might be different fro m the original. [facility] of Preventive Cardiology, Nutrition Consultation Referring provider: Dr. Randell Franks MD Referring diagnosis: obesity, HF, DM2 Visit type: Initial; zroe-kw-feem visit with patient Questions/Information desired today: Hoping [...] restarting the bariatric program; getting PT in [place] & has nutrition classes scheduled. Still has bariatric notebooks at home. Per Fuzz message from Dr. Pandey 09/10/17: "Just tell [...] & 1% milk; occ w/ applesauce or Ugandan yogurt No L S (3pm): pop-tart or [...] it's too expensive. Occ fruit bowls from [facility]. Vegetables: every day w/ dinner - [...] in PT 2x/week for bariatric program (in [place]) UBW: 385-391 lbs Max weight: 529 lbs Weight history: lost from 495 lbs to 383 lbs in 7653-6526 on Atkins diet ANTHROPOMETRICS: Height: Ht Readings from Last 1 Encounters: 09/11/17 1.549 m (5' 1") Weight: Wt Readings from Last 1 Encounters: 09/11/17 176.5 kg (389 lb 3.2 oz) 11/28/16 179.443 kg (395 lb 10 oz) Body mass index is 73.54 kg/m. Weight exchange teller the past year: 6 lb wt loss [...] weight loss; anticipate excellent compliance in the [facility] surgery program. Currently eating energy-dense/nurient-poor foods [...] of protein a day - add light Ugandan yogurt to breakfast; include lean protein with PM snack/lunch 3. D/c carbonated beverages (e.g., diet soda); replace with water, Crystal Light, diet deca f tea, or other calorie-free still beverage Contact information was provided; call or send Fuzz message to dietitian with any questi ons. [...] [address] | | | | | | [place], [place] | | | | | | [address] | | | | | | [phone] | | | | | | | | +--------+ + + + + | 04/04/ | Telephone-S | Surgery | Orquidea Cristoabl, | | | 2019 | sherrill | | PLAY WRITER [address] | | | | | | [place], [place] | | | | | | [address] | | | | | | [phone] | | | | | | | | +--------+ + + + + documented as of this encounter Visit Diagnoses + + | Diagnosis | + + | Morbid obesity with BMI of 70 and over, adult (HCC) - Primary | + + documented in this encounter
--- OUTSIDE RECORDS SUMMARY | ~2020-02-27 | XMS | Encounter Summary ---
Demographics + + + | Address | [address] | | | [place] [address] | + + + | Home Phone [...] Team Providers + +------+ + | Care Emg Technician Name | Role | Phone | + +------+ + PCP | Unavailable | + +------+ + Encounter Details +--------+ + + + + | Date | Type | Department | Care Team | Description | +--------+ + + + + | 02/17/ | Orders Only | [facility] | Provider, | Pure | | 2019 | | SYSTEM GENERIC OP | MD [address] | hyperglyceridemia; | | | | CONVERSION [address] | [address] | Hypokalemia; | | | | [address] [place], [place] | [place] [address] | Dehydration; | | | | [address] | | Hyperuricemia | | | | [phone] | | without signs of | | [...] + + + + | 08/26/ | Virtual | Neurology | IsakCamille chester, | | | 2019 | Office | | MD [address] | | | | Visit | | REILLY Swain | | | | | | [place] [address] | | | | | | [phone] | | | | | | | | +--------+ + + + + | 03/29/ | Office | Cardiology | Sulema Altamirano | | | 2019 | Visit | | HILDA Pope [address] | | | | | | [address] | | | | | | [place] [address] | | | | | | [phone] | | | | | | | [...]
--- OUTSIDE RECORDS SUMMARY | ~2020-02-27 | XMS | Encounter Summary ---
Demographics + + + | Address | [address] | | | [place] [address] | + + + | Home Phone [...] [place], [place] | | | | | [address] | | + + + + + | Ellie Vang | ECON | Unknown | | + + + + + Care Team Providers + +------+ + | Care Coil Tier Name | Role | Phone | + [...] | Visit | Center at [facility] 3485 | MD [address] | surgery (Primary | | | | [address] | [place], [place] | Dx); History of | | | | for Health and | [address] | Frandy-en-Y gastric | | | | Healing, Building [address] | [phone] | bypass | | | | [place], [place] | | | | | | [address] | | | | | | [phone] | | | +--------+---------+ + + + [...] to the healing stomach. There are also supervisor long goods complications of poor wound healing and gastric u lcers. These ulcers are started by smoking or using other nicotine products (vapor cigarett es etc). Gastric bypass patients should also avoid NSAIDS(ibuprofen, advil, motrin, naprosyn/naproxe n/aleve) to prevent gastric/marginal ulcers. Please visit with our Barrel Polisher Inside (RD) for instructions about your Bariatric diet, assistance with calorie counts, tips and tricks for working with your diet restrictions, an d recipes after bariatric surgery. Daily yogurt; even just 1 tablespoon twice a day will provide enough probiotics to optimize digestion. Try to use a high-quality, probiotic-dense yogurt (eg Zaria's, [place], Lif eway Kefir, Histology Tech Duke's Wolof Yogurt). Remember to chew your food well, [...] protein daily, and 64 oz water daily. Lead Cashier just changed diet to he lp her [...] by communicating with her mother - Follow Lead Cashier recommendations to help with nausea (decrease volume, [...] Anisa Dillon MD PGY-1, Red Surgery Pager: [phone] documented in this encounter Plan of Treatment +--------+ + + + + | Date | Type | Specialty | Care Team | Description | +--------+ + + + + | 03/22/ | Office | Cardiology | Randell Franks, | | | 2019 | Visit | | [address] | | | | | | [place], [place] | | | | | | [address] | | | | | | [phone] | | | | | | | | +--------+ + + + + | 04/04/ | Telephone-S | Surgery | Orquidea Cristobal, | | | 2019 | cheduled | | CONTINUOUS MINING MACHINE OPERATOR [address] | | | | | | [place], [place] | | | | | | [address] | | | | | | [phone] | | | | | | | [...]
--- OUTSIDE RECORDS SUMMARY | ~2020-02-27 | XMS | Encounter Summary ---
Demographics + + + | Address | [address] | | | [place] [address] | + + + | Home Phone [...] [place], [place] | | | | | [address] | | + + + + + | Ellie Vang | ECON | Unknown | | + + + + + Care Team Providers + +------+ + | Care Flower Shop Manager Name | Role | Phone | [...] | 2012 | | Center at [facility] [address] | ACNP [address] | | | | | [address] | [place], [place] | | | | | for Health and | [address] | | | | | [facility] | | | | | | [place], [place] | | | | | | [address] | | | | | | | [...] Ave | | | | | | [place], [place] | | | | | | [address] | | | | | | [phone] | | | | | | | | +--------+ + + + + | 04/04/ | Telephone-S | Surgery | Orquidea Cristobal, | | | 2019 | sherrill | | MACARONI PRESS OPERATOR [address] | | | | | | [place], [place] | | | | | | [address] | | | | | | [phone] | | | | | | | | +--------+ + + + + documented as of this encounter Visit Diagnoses Not on filedocumented in this encounter"
--- OUTSIDE RECORDS SUMMARY | ~2020-02-27 | XMS | Encounter Summary ---
Demographics + + + | Address | [address] | | | [place] [address] | + + + | Home Phone [...] [place], [place] | | | | | [address] | | + + + + + | Ellie Vang | ECON | Unknown | | + + + + + Care Team Providers + +------+ + | Care Copy Machine Operator Name | Role | Phone [...] | | 2018 | | Preventive at [facility] | MD [address] | (Phentermine 37.5mg) | | | | [address] | [place], [place] | | | | | [facility] | [address] | | | | | and Erick, | [phone] | | | | | [facility] 1 | | | | | | [place], [place] | | | | | | [address] | | | | | | [phone] | | | +--------+ + + + [...] [address] | | | | | | [place], [place] | | | | | | [address] | | | | | | [phone] | | | | | | | | +--------+ + + + + | 04/04/ | Telephone-S | Surgery | Orquidea Cristobal, | | | 2020 | sherrill | | RIVET HEATER GAS [address] | | | | | | [place], [place] | | | | | | [address] | | | | | | [phone] | | | | | | | | +--------+ + + + + documented as of this encounter Visit Diagnoses Not on filedocumented in this encounter"
--- OUTSIDE RECORDS SUMMARY | ~2020-02-27 | XMS | Encounter Summary ---
Demographics + + + | Address | [address] | | | [place] [address] | + + + | Home Phone [...] [place], [place] | | | | | [address] | | + + + + + | Ellie Vang | ECON | Unknown | | + + + + + Care Team Providers + +------+ + | Care Pulling Unit Operator Name | Role | Phone [...] Encounter, Provider, | | | | | [address] [place] for | MD [address] | | | | | Health and Healing, | [place] [address] | | | | | Building [address] | | | | | | [place], [place] | | | | | | [address] | | | | | | [phone] | | | +--------+ + + + [...] [address] | | | | | | [place], [place] | | | | | | [address] | | | | | | [phone] | | | | | | | | +--------+ + + + + | 04/04/ | Telephone-S | Surgery | Orquidea Cristobal, | | | 2020 | sherrill | | DERRICKMAN HELPER [address] | | | | | | [place], [place] | | | | | | [address] | | | | | | [phone] | | | | | | | | +--------+ + + + + documented as of this encounter Results EGBrynn (04/07/2019 10:53 AM PDT) + + | Specimen | + + | | + + + + + | Narrative | Performed At | + + + | MRN: | [facility] | | [id number] Date: 04/07/2019Patient Name: Elzbieta Curtis #: | ENDOSCOPY | | [id number] of : 1975CSN: [id number] Type: | | | AmbulatoryRoom: Endo 5Procedure: Upper GI | | | endoscopyIndications: Generalized abdominal pain, Nausea | | | with vomitingProviders: TAL LUND MD | | | (Doctor), BERNARDO BERNARD RN (Nurse), | | | EREN SLATER (Director Security Risk Management)Referring MD: SYLVIA Kilpatrick | | | RASTA [...] | | | The Olympus GIF-[id number] Endoscope #[id number] | | | was introduced through the [...]
--- OUTSIDE RECORDS SUMMARY | ~2020-02-27 | XMS | Encounter Summary ---
Demographics + + + | Address | [address] | | | [place] [address] | + + + | Home Phone [...] [place], [place] | | | | | [address] | | + + + + + | Ellie Vang | ECON | Unknown | | + + + + + Care Team Providers + +------+ + | Care Delivery Technician Name | Role | Phone | [...] | | | | | | [place], [place] | | | | | | [address] | | | | | | [phone] | | | +--------+ + + + [...] Ave | | | | | | [place], [place] | | | | | | [address] | | | | | | [phone] | | | | | | | | +--------+ + + + + | 04/04/ | Telephone-S | Surgery | Orquidea Cristobal, | | | 2019 | sherrill | | ACCOUNTS RECEIVABLE PROCESSOR [address] | | | | | | [place], [place] | | | | | | [address] | | | | | | [phone] | | | | | | | | +--------+ + + + + documented as of this encounter Visit Diagnoses Not on filedocumented in this encounter"
--- OUTSIDE RECORDS SUMMARY | ~2020-02-27 | XMS | Encounter Summary ---
Demographics + + + | Address | [address] | | | [place] [address] | + + + | Home Phone [...] + | Katalina Padilla | ECON | [address] | | | | | [place], [place] | | | | | [address] | | + + + + + | Ellie Vang | ECON | Unknown | | + + + + + Care Team Providers + +------+ + | Care Affirmative Action Specialist Name | Role | Phone | [...] | | | | [address] [place] | [place], [place] | | | | | [facility] and | [address] | | | | | [facility] | [phone] | | | | | [place], [place] | | | | | | [address] | | | | | | [phone] | | | +--------+ + + + [...] Ave | | | | | | [facility] [place] | | | | | | [address] | | | | | | [phone] | | | | | | | | +--------+ + + + + | 04/04/ | Telephone-S | Surgery | Orquidea Cristobal, | | | 2019 | cheduled | | LINUX VMWARE ADMINISTRATOR [address] | | | | | | [place], [place] | | | | | | [address] | | | | | | [phone] | | | | | | | | +--------+ + + + + documented as of this encounter Visit Diagnoses Not on filedocumented in this encounter"
--- OUTSIDE RECORDS SUMMARY | ~2020-02-27 | XMS | Encounter Summary ---
Demographics + + + | Address | [address] | | | [place] [address] | + + + | Home Phone [...] [place], [place] | | | | | [address] | | + + + + + | Ellie Vang | ECON | Unknown | | + + + + + Care Team Providers + +------+ + | Care Overhauler Name | Role | Phone | [...] Records | | 2019 | | Center [place] [address] [address] | MD [address] | Review | | | | [facility] | [facility] | | | | | [facility] and | [place], [place] | | | | | [place] [address] | [address] | | | | | [place], [place] | [phone] | | | | | [address] | | | | | | [phone] | | | +--------+ + + + [...] Ave | | | | | | [place], [place] | | | | | | [address] | | | | | | [phone] | | | | | | | | +--------+ + + + + | 04/04/ | Telephone-S | Surgery | Orquidea Cristobal, | | | 2019 | cheduled | | FILING AND POLISHING SUPERVISOR [address] | | | | | | [place], [place] | | | | | | [address] | | | | | | [phone] | | | | | | | | +--------+ + + + + documented as of this encounter Visit Diagnoses Not on filedocumented in this encounter"
--- OUTSIDE RECORDS SUMMARY | ~2020-02-27 | XMS | Encounter Summary ---
Demographics + + + | Address | [address] | | | [place] [address] | + + + | Home Phone [...] [place], [place] | | | | | [address] | | + + + + + | Ellie Vang | ECON | Unknown | | + + + + + Care Team Providers + +------+ + | Care Electric Stop Installer Name | Role | Phone | [...] | | | | | obstruction | [place], | for Health | | | | | or gangrene | [place] | and Healing, | | | | | Abdominal | [address] | Building [address] | | | | | pain, | Phone: | [place], [place] | | | | | unspecified | | [address] | | | | | abdominal | Fax: | Phone: | | | | | location | [phone] | [phone] | | | | | Procedures | | Fax: | | | | | CONSULT TO | | [phone] | | | | | SURGERY - [...] | | | | [address] [place] | Ave [place], [place] | | | | | for Health and | [address] | | | | | [address]rick [facility] 2 | [phone] | | | | | [place], [place] | | | | | | [address] | | | | | | | [...] [address] | | | | | | [place], [place] | | | | | | [address] | | | | | | [phone] | | | | | | | | +--------+ + + + + | 04/04/ | Telephone-S | Surgery | Orquidea Cristobal, | | | 2019 | sherrill | | KNOCK OUT HAND [address] | | | | | | [place], [place] | | | | | | [address] | | | | | | [phone] | | | | | | | [...]
--- OUTSIDE RECORDS SUMMARY | ~2020-02-27 | XMS | Encounter Summary ---
Demographics + + + | Address | [address] | | | [place] [address] | + + + | Home Phone [...] + | Katalina Padilla | ECON | [address] | | | | | [place], [place] | | | | | [address] | | + + + + + | Ellie Vang | ECON | Unknown | | + + + + + Care Team Providers + +------+ + | Care Engineering Administrator Name | Role | Phone | + +------+ + | Kenytata Cardenas MD | PCP | | + +------+ + Encounter Details +--------+ + + + + | Date | Type | Department | Care Team | Description | +--------+ + + + + | 03/18/ | Transcribe | [facility] | Transcribe | | | 2019 | Orders | [facility] [address] | Encounter, Provider, | | | | | [address] [place] for | MD [address] | | | | | Health and Healing, | [place] [address] | | | | | Building [address] | | | | | | [place], [place] | | | | | | [address] | | | | | | [phone] | | | +--------+ + + + [...] [address] | | | | | | [place], [place] | | | | | | [address] | | | | | | [phone] | | | | | | | | +--------+ + + + + | 04/04/ | Telephone-S | Surgery | Orquidea Cristobal, | | | 2020 | sherrill | | CLAMMER [address] | | | | | | [place], [place] | | | | | | [address] | | | | | | [phone] | | | | | | | | +--------+ + + + + documented as of this encounter Results EGBrynn (04/07/2019 10:53 AM PDT) + + | Specimen | + + | | + + + + + | Narrative | Performed At | + + + | MRN: | [facility] | | [id number] Date: 04/07/2019Patient Name: Elzbieta Curtis #: | ENDOSCOPY | | [id number] of : 1975CSN: [id number] Type: | | | AmbulatoryRoom: Endo 5Procedure: Upper GI | | | endoscopyIndications: Generalized abdominal pain, Nausea | | | with vomitingProviders: TAL LUND MD | | | (Doctor), BERNARDO BERNARD RN (Nurse), | | | EREN SLATER (Waste Machine Tender)Referring MD: SYLVIA Kilpatrick | | | [...] | | | The Olympus GIF-[id number] Endoscope #[id number] | | | was introduced through the [...]
--- OUTSIDE RECORDS SUMMARY | ~2020-02-27 | XMS | Encounter Summary ---
Demographics + + + | Address | [address] | | | [place] [address] | + + + | Home Phone [...] [place], [place] | | | | | [address] | | + + + + + | Ellie Vang | ECON | Unknown | | + + + + + Care Team Providers + +------+ + | Care Injection Moulding Machine Operator Name | Role | Phone [...] | | 2018 | | Center at [facility] 3485 | ACNP [address] | | | | [address] [place] | e [place], [place] | | | | | for Health and | [address] | | | | | [facility], [facility] 2 | [phone] | | | | | [place], [place] | | | | | | [address] | | | | | | [phone] | | | +--------+ + + + [...] Ave | | | | | | [place], [place] | | | | | | [address] | | | | | | [phone] | | | | | | | | +--------+ + + + + | 04/04/ | Telephone-S | Surgery | Orquidea Cristobal, | | | 2019 | cheduled | | DECKHAND FISHING VESSEL [address] | | | | | | [place], [place] | | | | | | [address] | | | | | | [phone] | | | | | | | | +--------+ + + + + documented as of this encounter Visit Diagnoses Not on filedocumented in this encounter"
--- OUTSIDE RECORDS SUMMARY | ~2020-02-27 | XMS | Encounter Summary ---
Demographics + + + | Address | [address] | | | [place] [address] | + + + | Home Phone [...] [place], [place] | | | | | [address] | | + + + + + | Ellie Vang | ECON | Unknown | | + + + + + Care Team Providers + +------+ + | Care Crystal Grower Name | Role | Phone | [...] | 2020 | Visit | Center at [facility] [address] | MD [address] | (Primary Dx) | | | | [facility] | [facility] | | | | | [facility] and | [place], [place] | | | | | [facility] 2 | [address] | | | | | [place], [place] | [phone] | | | | | [address] | | | | | | [phone] | | | +--------+---------+ + + + [...] recommend you go to the ED in [place] for workup of pulmonary embolism. I will [...] check. Of note, she was admitted to [facility] 09/02/2019 - 09/04/2019 for a large [...] Recommended patient present to the ED in [place] for workup of pulmonary embolism Will call [...] ed by Kyrie Warren. JONES WOO MD [facility] AT [facility] [address] Mailcode: [place] [address] documented in this encounter Plan of Treatment +--------+ + + + + | Date | Type | Specialty | Care Team | Description | +--------+ + + + + | 03/22/ | Office | Cardiology | Randell Franks, | | | 2019 | Visit | | [address] | | | | | | [place], [place] | | | | | | [address] | | | | | | [phone] | | | | | | | | +--------+ + + + + | 04/04/ | Telephone-S | Surgery | Orquidea Cristobal, | | | 2020 | sherrill | | PRODUCTION PLANNING MANAGER [address] | | | | | | [place], [place] | | | | | | [address] | | | | | | [phone] | | | | | | | | +--------+ + + + + documented as of this encounter Visit Diagnoses + + | Diagnosis | + + | Postop check - Primary Follow-up examination, following unspecified surgery | + + documented in this encounter
--- OUTSIDE RECORDS SUMMARY | ~2020-02-27 | XMS | Encounter Summary ---
Demographics + + + | Address | [address] | | | [place] [address] | + + + | Home Phone [...] [place], [place] | | | | | [address] | | + + + + + [...] | Pain | Diagnoses | Tilgner, | Entry Level Automotive Technician Psych | | | | Management | Morbid | Shereen Murcia ACNP | Ch[facility] [address] | | | | | obesity with | [address] | | | | | BMI of [address] | Center for | | | | | and over, | [place], [place] | Health and | | | | | adult (HCC) | [address] | Healing, | | | | | Procedures | Phone: | Building | | | | | CONSULT TO | [phone] | ,15th Floor | | | | | PAIN | Fax: | [place], [place] | | | | | MANAGEMENT | [phone] | [address] | | | | | MD | | Phone: | | | | | PSYCHIATRIC | | [phone] | | | | | DIAGNOSTIC | | Fax: | | | | | EVAL, NO MED | | [phone] | | | | | SVCS MD | | | | | | | PSYCH TSTNG | | | | | | | PSYCH/PHYS | | | +--------+---------+ + + + + Encounter Details +--------+---------+ + + + | Date | Type | Department | Care Team | Description | +--------+---------+ + + + | 10/02/ | Office | Pain Center at [facility] | Leslie Mistry, | Morbid obesity | | 2018 | Visit | [address] | PhD [address] | ([facility]); Bipolar | | | | [facility] | [facility] | affective disorder, | | | | and Healing, | [place], [place] | remission status | | | | | [address] | unspecified ([facility]); | | | | Floor [place], [place] | [phone] | BMI 60.0-69.9, adult | | | | [address] | | ([facility]); Anxiety | | | | [phone] | | | +--------+---------+ + + + [...] Name: Elzbieta Cristina : 1975 Medical Record: [id number] Age: 42 y.o. Weight today, per patient report: 305 lbs Weight on 09/11/17: 389, BMI 73.54 Identifying Information: Elzbieta Cristina is a 42 y.o. female who lives with her mother in [place], [place]. She was referred for psychological evaluation [...] of cereal with skim milk and a bhutanese yogurt L: white bread and cheese and [...] laundry. For enjoym ent the patient watches [employer] with her girlfriend. She is socially active [...] History: Elzbieta Cristina was born in [place] and lived with her mother and sister. [...] time I spent was approximately 60 minutes tzvb-zp-dhea with the patient and approxima tely 2 hours of uaj-tjyu-ui-face testing, interpreting and synthesizing results. Leslie Mistry, PhD Clinical Psychologist [facility] [address] [facility] and [facility], [address]th [place] [address] [phone] signed by Leslie Mistry, PhD at 10/08/2017 [...] [address] | | | | | | [place], [place] | | | | | | [address] | | | | | | [phone] | | | | | | | | +--------+ + + + + | 04/04/ | Telephone-S | Surgery | Orquidea Cristobal, | | | 2019 | sherrill | | MANAGEMENT CONSULTANT [address] | | | | | | [place], [place] | | | | | | [address] | | | | | | [phone] | | | | | | | [...]
--- OUTSIDE RECORDS SUMMARY | ~2020-02-27 | XMS | Encounter Summary ---
Demographics + + + | Address | [address] | | | [place] [address] | + + + | Home Phone [...] [place], [place] | | | | | [address] | | + + + + + | Ellie Vang | ECON | Unknown | | + + + + + Care Team Providers + +------+ + | Care Life Skills Teacher Name | Role | Phone | [...] | 2013 | | Center at [facility] [address] | CASH GRAIN FARMER [address] | | | | | [address] | [facility] 350 | | | | | for Health and | [place], [place] | | | | | [facility] 2 | [address] | | | | | [place], [place] | [phone] | | | | | [address] | | | | | | [phone] | | | +--------+ + + + [...] [address] | | | | | | [place], [place] | | | | | | [address] | | | | | | [phone] | | | | | | | | +--------+ + + + + | 04/04/ | Telephone-S | Surgery | Orquidea Cristobal, | | | 2019 | sherrill | | YARN TESTER [address] | | | | | | [place], [place] | | | | | | [address] | | | | | | [phone] | | | | | | | | +--------+ + + + + documented as of this encounter Visit Diagnoses Not on filedocumented in this encounter"
--- OUTSIDE RECORDS SUMMARY | ~2020-02-27 | XMS | Encounter Summary ---
Demographics + + + | Address | [address] | | | [place] [address] | + + + | Home Phone [...] [place], [place] | | | | | [address] | | + + + + + | Ellie Vang | ECON | Unknown | | + + + + + Care Team Providers + +------+ + | Care Condenser Tube Tender Name | Role | Phone | + +------+ + | Fadi Goodrich DO | PCP | | + +------+ + Encounter Details +--------+ + + + + | Date | Type | Department | Care Team | Description | +--------+ + + + + | 02/09/ | Abstract | Digestive Health | Clinic, Surgery | | | 2016 | | [place] [address] [address] | | | | | | S [facility] | | | | | | for Health and | | | | | | [facility] 2 | | | | | | [place], [place] | | | | | | [address] | | | | | | [phone] | | | +--------+ + + + [...] Ave | | | | | | [place], [place] | | | | | | [address] | | | | | | [phone] | | | | | | | | +--------+ + + + + | 04/04/ | Telephone-S | Surgery | Orquidea Cristobal, | | | 2019 | cheduled | | RIVETER AUTOMOBILE BRAKES [address] | | | | | | [facility], [place] | | | | | | [address] | | | | | | [phone] | | | | | | | | +--------+ + + + + documented as of this encounter Visit Diagnoses Not on filedocumented in this encounter"
--- OUTSIDE RECORDS SUMMARY | ~2020-02-27 | XMS | Encounter Summary ---
Demographics + + + | Address | [address] | | | [place] [address] | + + + | Home Phone [...] [place], [place] | | | | | [address] | | + + + + + | Ellie Vang | ECON | Unknown | | + + + + + Care Team Providers + +------+ + | Care Copy Lathe Tender Name | Role | Phone | + +------+ + | Fadi Goodrich DO | PCP | | + +------+ + Encounter Details +--------+ + + + + | Date | Type | Department | Care Team | Description | +--------+ + + + + | 10/19/ | Abstract | Digestive Health | Clinic, Surgery | | | 2017 | | [place] at [facility] [address] | | | | | | S [facility] | | | | | | for Health and | | | | | | [facility], [facility] 2 | | | | | | [place], [place] | | | | | | [address] | | | | | | [phone] | | | +--------+ + + + [...] Ave | | | | | | [place], [place] | | | | | | [address] | | | | | | [phone] | | | | | | | | +--------+ + + + + | 04/04/ | Telephone-S | Surgery | Orquidea Cristobal, | | | 2019 | cheduled | | [facility] [address] | | | | | | [facility], [place] | | | | | | [address] | | | | | | [phone] | | | | | | | | +--------+ + + + + documented as of this encounter Visit Diagnoses Not on filedocumented in this encounter"
--- OUTSIDE RECORDS SUMMARY | ~2020-02-27 | XMS | Encounter Summary ---
Demographics + + + | Address | [address] | | | [place] [address] | + + + | Home Phone [...] [place], [place] | | | | | [address] | | + + + + + | Ellie Vang | ECON | Unknown | | + + + + + Care Team Providers + +------+ + | Care Straight Knife Cutter Machine Name | Role | Phone | [...] [address]ann[address] | | | | | | [facility] [place] | | | | | | [address] | | | | | | [phone] | | | | | | | | +--------+ + + + + | 04/04/ | Telephone-S | Surgery | Orquidea Cristobal, | | | 2019 | cheduled | | CONSTRUCTION OR LEAK GANG LABORER [address] | | | | | | [place], [place] | | | | | | [address] | | | | | | [phone] | | | | | | | | +--------+ + + + + documented as of this encounter Visit Diagnoses Not on filedocumented in this encounter"
--- OUTSIDE RECORDS SUMMARY | ~2020-02-27 | XMS | Encounter Summary ---
Demographics + + + | Address | [address] | | | [place] [address] | + + + | Home Phone [...] [place], [place] | | | | | [address] | | + + + + + | Ellie Vang | ECON | Unknown | | + + + + + Care Team Providers + +------+ + | Care Vice President Of Compliance Name | Role | Phone | + [...] | | 2019 | | Center at [facility] [address] | [facility] [address] | | | | | [address] | [place], [place] | | | | | [facility] and | [address] | | | | | [facility], [facility] 2 | [phone] | | | | | [place], [place] | | | | | | [address] | | | | | | [phone] | | | +--------+ + + + [...] [address] | | | | | | [place], [place] | | | | | | [address] | | | | | | [phone] | | | | | | | | +--------+ + + + + | 04/04/ | Telephone-S | Surgery | Orquidea Cristobal, | | | 2019 | cheduled | | JOY LOADER [address] | | | | | | [place], [place] | | | | | | [address] | | | | | | [phone] | | | | | | | | +--------+ + + + + documented as of this encounter Visit Diagnoses Not on filedocumented in this encounter"
--- OUTSIDE RECORDS SUMMARY | ~2020-02-27 | XMS | Encounter Summary ---
Demographics + + + | Address | [address] | | | [place] [address] | + + + | Home Phone [...] [place], [place] | | | | | [address] | | + + + + + | Ellie Vang | ECON | Unknown | | + + + + + Care Team Providers + +------+ + | Care Manager Of Application Development Name | Role | Phone | + [...] | | 2012 | | [address] [facility] | [address] [facility] | ventral hernia; | | | | Rd [facility] | [facility] [address] | possible bowel | | | | Hospital Admitting | [place], [place] | resection; | | | | Desk Located on the | [address] | | | | | 9th floor | [phone] | | | | | [place], [place] | | | | | | [address] | | | +--------+---------+ + + + [...] yuriy tral hernia. She was transferred from [place] for surgical evaluation of possible incarcer ated [...] yuriy tral hernia. She was transferred from [place] for surgical evaluation of possible incarcer ated [...] keeping you from eating and drinking, Call [phone]. It is important to stay hydrated! If [...] taking narcotic that contain Tylenol (acetaminophen) Example: [place], Lortab, Vicodin, hydrocodone/APAP, Percocet, Tylenol #3 PAIN MEDICATIONS are ONLY REFILLED during CLINIC APPOINTMENTS. Please call [phone] to schedule an appointment. Your Follow-Up Plan Follow up with ROBIN MEJIA in 2 weeks. Contact information: [address] [facility] [address] Vitals on discharge: Ht 154.9 cm (5' [...] [facility] DEPARTMENT OF SURGERY EMERGENCY GENERAL SURGERY Division [...] without erythema and no infecti on noted. Ewing intact : good urine output and Patient [...] clinic [place] [address] pager number [place] [phone] [facility] [address] Aminta Goodwin Md - 11/11/2012 7:40 AM PDT [facility] DEPARTMENT OF SURGERY EMERGENCY GENERAL SURGERY Division of Trauma and Critical Care Attending Physician: Andie Brian MD Progress Note Note Date: 11/11/2012 Admission Date: 11/06/2012 DYLAN ROMERO, [id number] Hospital Day #5 INTERVAL EVENTS none acute [...] mg, Rectal, DAILY PRN, Aminta Wilson MD brrffrlcie-qnepkksvsesno-etjjmtrp (aka FIORICET) 50-325-40 mg 1 Tab, 1 [...] Jayne Ponce MD, 1 mg at 11/10/12801 nnggdnkhfh-oqaovriryiioa-ggblnbkk (aka FIORICET) 50-325-40 mg 1 Tab, 1 [...] in preservative free NaCl 0.9% 50 mL ROLLED GOLD PLATER infusion, , Intravenous, KIESHA NUOUS, Aracely Flores [...] diet -add bowel regimen Acute pain -HM ROLLED GOLD PLATER, tylenol -convert to oral pain medication once [...] Fluids: LR 125ml/hr Feeding: NPO Analgesia: Dilaudid ROLLED GOLD PLATER Sedation: not indicated Thromboprophylaxis: enoxaparin Head of [...] Ponce MD, 1 mg at 11/09/12 0855 pdxldqvyhr-yrwrsdqavxyut-jlekggpl (aka FIORICET) 50-325-40 mg 1 Tab, 1 [...] in preservative free NaCl 0.9% 50 mL ROLLED GOLD PLATER infusion, , Intravenous, KIESHA NUOUS, Aracely Flores [...] drainage <30ml for 24hrs Acute pain -HM ROLLED GOLD PLATER, tylenol Diabetes: -insulin gtt not started due [...] Fluids: LR 125ml/hr Feeding: NPO Analgesia: Dilaudid ROLLED GOLD PLATER Sedation: not indicated Thromboprophylaxis: enoxaparin Head of bed: > 30 Ulcer prophylaxis: pepcid Glycemic control: adequate Activity/PT/OT: Ongoing Yogurt: ABX on Probiotics:yes AMINTA WILSON MD General Surgery, R1 aleb Walker S, N P - 11/08/2012 8:49 AM PDT [facility] DEPARTMENT OF SURGERY EMERGENCY GENERAL SURGERY Division of Trauma and Critical Care Attending Physician: Andie Brian MD Progress Note Note Date: 11/08/2012 Admission Date: 11/06/2012 DYLAN ROMERO, [id number] Hospital Day #2 INTERVAL EVENTS NO SUBJECTIVE Pain well controlled; has headache attributed to dilaudid ROLLED GOLD PLATER Tylenol did not help. Flatus: YES Tolerating [...] trials today. -DC ruiz Acute pain -HM ROLLED GOLD PLATER, tylenol Diabetes: -insulin gtt not started due [...] Fluids: LR 125ml/hr Feeding: NPO Analgesia: Dilaudid ROLLED GOLD PLATER Sedation: not indicated Thromboprophylaxis: enoxaparin Head of bed: > 30 Ulcer prophylaxis: pepcid Glycemic control: adequate Activity/PT/OT: Ongoing Yogurt: ABX on Probiotics: No KALEB WALKER NP [facility] [address] [place] [facility] elvin Stephens MD - 11/07/2012 9:51 [...] 7.33* PCO2 49* PO2 113* HCO3 25 TDWJL7CUN 26 O2HQAFKF 98.3* C6RJHNTMJ -- FIO2 60 ABGEXCESS -0.9 Assessment, Medical Decision Making and Plan 1. Incarcerated hernia, now s/p repair and panniculectomy -Binder, pain control, minimize nausea and coughing PRN. -NG clamping trials today. 2. Acute pain -HM ROLLED GOLD PLATER, tylenol 3. Diabetes: -insulin gtt 4. Morbid [...] Dione Grimes MD R-2, General Surgery Pager: [phone] [facility] [place] Department of Surgery Trauma ICU Team Pager (24hrs/day): [phone] I was present with the resident during the history and exam. I discussed the case with the resident and agree with the findings and plan as documented in the resident s note. KELVIN STEPHENS MD [facility] [address] [facility] [place] [address] [id number] Onur Graves MD - 11/07/2012 2:37 AM [...] in preservative free NaCl 0.9% 50 mL ROLLED GOLD PLATER infusion Intravenous CON TINUOUS Aracely Flores, DO [...] POD#1 s/p primary repair. 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 facility engineer and prn tylenol, continue prozac and zyprexa [...] F: probable remain NPO today A: dilaudid facility engineer, prn tylenol S: prn benzos as she is at home T: will start prophylactic lovenox today H: HOB >30 degrees U: pepcid G: insulin gtt ONUR ALLEN MD, PGY3 [place] [address] [facility] [address] [id number] [place] [address] Onelia Shrestha MD - 11/06/2012 8:41 AM PDT [facility] DEPARTMENT OF SURGERY Division of Trauma and Critical Care Emergency General Surgery / Acute Care Surgery Attending Physician: Andie Brian MD Note Date: 11/06/2012 Admission Date: 11/06/2012 DYLAN ROMERO, [id number] Hospital Day #0 OVERNIGHT EVENTS: anxious SUBJECTIVE: [...] wwp LABS: reviewed and are available in [facility] (if new data) IMAGING: VASCULAR: [...] [address] | | | | | | [place], [place] | | | | | | [address] | | | | | | [phone] | | | | | | | | +--------+ + + + + | 04/04/ | Telephone-S | Surgery | Orquidea Cristobal, | | | 2019 | cheduled | | ROUGH ROUNDER MACHINE [address] | | | | | | [place], [place] | | | | | | [address] | | | | | | [phone] | | | | | | | [...] Mae | | | | | | [place] | | | | + + + [...] AMES | [address] | [place], [place] | | | [place] POINT OF CARE | [address] | [address] | | | TESTS | | | [...] [facility] | [address] | [place], [place] | | | [place] POINT OF CARE | [place] [address] | [address] | | | TESTS | | | [...] [facility] | [address] | [place] [address] | | | SERVICES, CORE | PARK [...] + + + + | [facility] | [address] | [place] [address] | | | SERVICES, CORE | CLARENCE [...] [facility] | [address] | [place] [address] | | | CLAIRE, LYDIA | PARK [...] [facility] | [address] | [place], [place] | | | JUSTINE DAWN OF CARE | [place] [address] | [address] | | | TESTS | | | [...] 60 - 99 mg/dL | [facility] - | | | GLUCOSE, | [...] [facility] | [address] | [place], [place] | | | [place] POINT OF [facility] | [place] | [address] | | | TESTS | | | [...] AMES | [address] | [place], [place] | | | JUSTINE DAWN OF JAKY | [facility] | [address] | | | TESTS | | | | + + + + + CAPILLARY BLOOD GLUCOSE (NO CHG) POC (11/11/2012 1:13 PM PDT) + +---------+ [...] [facility] | [address] | [place], [place] | | | JUSTINE DAWN OF CARE | [place] [address] | [address] | | | TESTS | | | [...] 60 - 99 mg/dL | [facility] - | | | GLUCOSE, | [...] + + | [facility] | [address] | [place], [place] | | | JUSTINE DAWN OF [facility] | [place] | [address] | | | TESTS | | | [...] + + + + | [facility] | [address] [facility] | [place] [address] | | | SERVICES, CORE | PARK [...] | + + + + + | [facility] | [address] [facility] | [place] [address] | | | LYDIA RANGEL | CLARENCE [...] + + + + | [facility] | [address] | [place] [address] | | | SERVICES, CORE | CLARENCE [...] 60 - 99 mg/dL | [facility] - | | | GLUCOSE, | [...] AMES | [address] | [place], [place] | | | JUSTINE DAWN OF CARE | [place] | [address] | | | TESTS | | | [...] MARQU[facility] | [address] | [place], [place] | | | JUSTINE DAWN OF JAKY | [facility] | [address] | | | TESTS | | | [...] [facility] | [address] | [place], [place] | | | JUSTINE DAWN OF CARE | [address] | [address] | | | TESTS | | | [...] AMES | [address] | [place], [place] | | | L[place] POINT OF CARE | [address] | [address] | | | TESTS | | | [...] MARQU[facility] | [address] | [place], [place] | | | JUSTINE DAWN OF JAKY | [address] | [address] | | | TESTS | | | [...] + + + + | [facility] | [address] [facility] | [place] [address] | | | SERVICES, CORE | PARK [...] | [address] | [place] [address] | | | SERVICES, CORE | PARK [...] | + + + + + | [facility] | [address] | [place] [address] | | | SERVICES, CORE | CLARENCE [...] MARQUAM | [address] | [place], [place] | | | JUSTINE DAWN OF CARE | [address] | [address] | | | TESTS | | | [...] - [facility] | [address] | [place], [place] | | | JUSTINE DAWN OF CARE | [facility] | [address] | | | TESTS | | | [...] AMES | [address] | [place], [place] | | | JUSTINE DAWN OF CARE | [address] | [address] | | | TESTS | | | [...] | | | Final CULTURE | | [place] | | | | RESULT:>100,000 cfu/ml | [...] + | [facility] | [address] | [place] [address] | | | [place] | | | | + + + [...] | + + + + + | [facility] | [address] | [place] [address] | | | SERVICES, CORE | CLARENCE [...] + + + + | [facility] | [address] | [place] [address] | | | SERVICES, CORE | CLARENCE [...] 90 | 60 - 99 mg/dL | [facility] - | | | GLUCOSE, | [...] + + + | [facility] | [address] | [place], [place] | | | L[place]PE[place] POINT OF CARE | [address] | [address] | | | TESTS | | | [...] the MDRD equation recommended by the | [facility] | | National Kidney Disease Education Program. [...] + + + + | [facility] | [address] | [place] [address] | | | LYDIA RANGEL | CLARENCE [...] [facility] | [address] | [place] [address] | | | SERVICES, CORE | PARK [...] + + + + | [facility] | [address] | [place] [address] | | | SERVICES, CORE | CLARENCE [...] AMES | [address] | [place], [place] | | | JUSTINE DAWN OF JAKY | [address] | [address] | | | TESTS | | | [...] + + | [facility] | [address] | [place], [place] | | | JUSTINE DAWN OF CARE | [address] | [address] | | | TESTS | | | [...] [facility] | [address] | [place] | | | L[place] POINT OF [facility] | [address] | [address] | | | TESTS | | | [...] + + + + | [facility] | [address] | [place] [address] | | | SERVICES, CORE | PARK [...] | + + + + + | [facility] | [address] [facility] | [place] [address] | | | SERVICES, CORE | CLARENCE [...] the MDRD equation recommended by the | [facility] | | National Kidney Disease Education Program. [...] + + + + | [facility] | [address] | [place] [address] | | | LYDIA RANGEL | PARK [...] - [facility] | [address] | [place], [place] | | | L[place] POINT OF CARE | [address] | [address] | | | TESTS | | | [...] AMES | [address] | [place], [place] | | | JUSTINE DAWN OF JAKY | [address] | [address] | | | TESTS | | | [...] [facility] | [address] | [place], [place] | | | L[place] POINT OF CARE | [address] | [address] | | | TESTS | | | [...] [facility] | [address] | [place] [address] | | | SERVICES, CORE | PARK [...] | [address] | [place] [address] | | | SERVICES, CORE | PARK [...] | + + + + + | [facility] | [address] | [place] [address] | | | SERVICES, LYDIA | CLARENCE [...] + +---------+ + + | [facility] DEPARTMENT OF | | | | | [...] [facility] | [address] | [place] [address] | | | SERVICES, CORE | PARK [...] | + + + + + | [facility] | [address] [facility] | [place] [address] | | | SERVICES, CORE | PARK [...] | + + + + + | [facility] | [address] | [place] [address] | | | SERVICES, CORE | CLARENCE [...] [facility] | [address] | [place] | | | L[place] POINT OF CARE | [address] | [address] | | | TESTS | | | | + + + + + ERMELINDA SANTACRUZ POC (11/06/2012 1:03 PM PDT) + + [...] [facility] | [address] | [place], [place] | | | L[place] POINT OF CARE | [address] | [address] | | | TESTS | | | [...] - [facility] | [address] | [place], [place] | | | JUSTINE DAWN OF CARE | [address] | [address] | | | TESTS | | | [...] AMES | [address] | [place], [place] | | | JUSTINE DAWN OF CARE | [address] | [address] | | | TESTS | | | [...] [facility] | [address] | [place] | | | JUSTINE DAWN OF JAKY | [address] | [address] | | | TESTS | | | [...] [facility] | [address] | [place], [place] | | | JUSTINE DAWN OF JAKY | [address] | [address] | | | TESTS | | | [...] AMES | [address] | [place], [place] | | | L[place] POINT OF CARE | [address] | [address] | | | TESTS | | | [...] [facility] | [address] | [place], [place] | | | JUSTINE DAWN OF JAKY | [address] | [address] | | | TESTS | | | [...] - [facility] | [address] | [place], [place] | | | JUSTINE DAWN OF CARE | [address] | [address] | | | TESTS | | | [...] + + + | [facility] | [address] | [place], [place] | | | L[place] POINT OF CARE | [address] | [address] | | | TESTS | | | | + + + + + CAPILLARY BLOOD GLUCOSE (NO CHG) POC (11/06/2012 10:23 AM PDT) + +---------+ [...] [facility] | [address] | [place], [place] | | | L[place] POINT OF CARE | [address] | [address] | | | TESTS | | | [...] | + + + + + | [facility] | [address] | [place] [address] | | | SERVICES, | [address] [...] [facility] | [address] | [place], [place] | | | JUSTINE DAWN OF CARE | [place] [address] | [address] | | | TESTS | | | [...] [facility] | [address] | [place] [address] | | | SERVICES, | [address] [...] | + + + + + | [facility] | [address] | [place] [address] | | | SERVICES, | [address] [...] [facility] | [address] | [place] [address] | | | SERVICES, CORE | PARK [...] + + + + | [facility] | [address] | [place] [address] | | | SERVICES, CORE | PARK [...] | | | LYDIA | | + +---------+ + + + + + | Specimen | + + | Blood - Blood | + + + + + + + | Performing | Address | City/State/Zipcode | Phone Number | | Organization | | | | + + + + + | [facility] | [address] | [place] [address] | | | SERVICES, CORE | PARK [...] | + + + + + | [facility] | [address] [facility] | [place] [address] | | | SERVICES, CORE | PARK [...] | + + + + + | [facility] | [address] | [place] [address] | | | SERVICES, CORE | [address] | | | + + + + + 12 LEAD ECG (11/06/2012 5:17 AM PDT) + + + + + + | Component | Value | Ref Range | Performed | Pathologist | | | | | At | Signature | + + + + + + | VENTRICULAR | 96 | BPM | [facility] | | | RATE | | [...] view image for the detailed interpretation from [employer] results. | CARDIOLOGY | + + + + + + + + | Performing | Address | City/State/Zipcode | Phone Number | | Organization | | | | + + + + + | [facility] | [address] | [place], [place] | | | CARDIOLOGY | [address] | [address] | | + + + + + [...] | + + + + + | [facility] | [address] | [place] [address] | | | SERVICES, CORE | CLARENCE [...] | [address] | [place] [address] | | | SERVICES, CORE | [address] | | | + + + + + documented in this encounter Visit Diagnoses + + | Diagnosis | + + | Incarcerated ventral hernia Ventral hernia, unspecified, with obstruction | + + documented in this encounter
--- OUTSIDE RECORDS SUMMARY | ~2020-02-27 | XMS | Encounter Summary ---
Demographics + + + | Address | [address] | | | [place] [address] | + + + | Home Phone [...] + | Katalina Padilla | ECON | [address] | | | | | [place], [place] | | | | | [address] | | + + + + + | Ellie Vang | ECON | Unknown | | + + + + + Care Team Providers + +------+ + | Care Collections Officer Name | Role | Phone | [...] | | | | | | | [address] | | | | | | | [address] | | | | | | | [place], | | | | | | | [place] | | | | | | | [address] | | | | | | | Phone: | | | | | | | [phone] | | | | | | | Fax: | | | | | | | [phone] | +--------+--------+ + + + + Encounter Details +--------+---------+ + + + | Date | Type | Department | Care Team | Description | +--------+---------+ + + + | 04/14/ | Office | Digestive Health | Hernandez Brian, | Morbid obesity (HCC) | | 2013 | Visit | Center at [facility] [address] | [address] | (Primary Dx); Type | | | | [address] [facility] | [address] | 2 diabetes mellitus | | | | for [facility] and | [place], [place] | ([facility]); AMARA | | | | [place] [address] | [address] | (obstructive sleep | | | | [facility] [place] | [phone] | apnea); Edema | | | | [address] | | | | | | [phone] | | | +--------+---------+ + + + [...] this year, she was tr ansferred from [place] for surgical evaluation of possible incarcerated ventral [...] with close followup by her PCP in [place] in the interim. Dr. Guillory in [place] has been following her since January, with CT scan obtained at [facility] in [place] 02/09/2013 (images in [facility]), demonstrating "recurrent hypogastric [...] to follow up with her providers at [facility] to include a visi t to our [...] r weight loss efforts. She saw a outsole leveler today and Melida came in to discuss [...] Ave | | | | | | [place], [place] | | | | | | [address] | | | | | | [phone] | | | | | | | | +--------+ + + + + | 04/04/ | Telephone-S | Surgery | Orquidea Cristobal, | | | 2019 | cheduled | | VARIOUS EXCEPTIONALITIES TEACHER [address] | | | | | | [place], [place] | | | | | | [address] | | | | | | [phone] | | | | | | | [...]
--- OUTSIDE RECORDS SUMMARY | ~2020-02-27 | XMS | Encounter Summary ---
Demographics + + + | Address | [address] | | | [place] [address] | + + + | Home Phone [...] Providers + +------+ + | Care Shipping And Receiving Associate Name | Role | Phone | + +------+ + PCP | Unavailable | + +------+ + Encounter Details +--------+ + + + + | Date | Type | Department | Care Team | Description | +--------+ + + + + | 10/20/ | Orders Only | [facility] | Conversion | | | 2016 | | NEPHROLOGY [place] | Transaction, | | | | | [address] | Provider Unknown | | | | | [address] [place], [place] | | | | | | [address] | (Fax) | | | | | [phone] | | | +--------+ + + + [...] D | | | | | | [place] [address] | | | | | | [phone] | | | | | | | | +--------+ + + + + | 03/29/ | Office | Cardiology | Sulema Altamirano | | | 2019 | Visit | | [address] | | | | | | [address] | | | | | | [place] [address] | | | | | | [phone] | | | | | | | [...]
--- OUTSIDE RECORDS SUMMARY | ~2020-02-27 | XMS | Encounter Summary ---
Demographics + + + | Address | [address] | | | [place] [address] | + + + | Home Phone [...] [place], [place] | | | | | [address] | | + + + + + | Ellie Vang | ECON | Unknown | | + + + + + Care Team Providers + +------+ + | Care Senior Backup Administrator Name | Role | Phone | [...] [place] | | | | | | [address] | | | | | | [phone] | | | | | | | | +--------+ + + + + | 04/04/ | Telephone-S | Surgery | Orquidea Cristobal, | | | 2019 | cheduled | | PAINTING SUPERVISOR [address] | | | | | | [place], [place] | | | | | | [address] | | | | | | [phone] | | | | | | | | +--------+ + + + + documented as of this encounter Visit Diagnoses Not on filedocumented in this encounter"
--- OUTSIDE RECORDS SUMMARY | ~2020-02-27 | XMS | Encounter Summary ---
Demographics + + + | Address | [address] | | | [place] [address] | + + + | Home Phone [...] [place], [place] | | | | | [address] | | + + + + + | Ellie Vang | ECON | Unknown | | + + + + + Care Team Providers + +------+ + | Care Import/Export Specialist Name | Role | Phone | [...] | | 2016 | | Preventive at [facility] | MD [address] | ([place]) | | | | [address] | [place], [place] | | | | | [facility] | [address] | | | | | and [place], | [phone] | | | | | [place] [address] | | | | | | [place], [place] | | | | | | [address] | | | | | | [phone] | | | +--------+ + + + [...] | | | | | | [place], [place] | | | | | | [address] | | | | | | [phone] | | | | | | | | +--------+ + + + + | 04/04/ | Telephone-S | Surgery | Orquidea Cristobal, | | | 2020 | sherrill | | INTERLOCKER [address] | | | | | | [place] | | | | | | [address] | | | | | | [phone] | | | | | | | | +--------+ + + + + documented as of this encounter Visit Diagnoses Not on filedocumented in this encounter"
--- OUTSIDE RECORDS SUMMARY | ~2020-02-27 | XMS | Encounter Summary ---
Demographics + + + | Address | [address] | | | [place] [address] | + + + | Home Phone [...] [place], [place] | | | | | [address] | | + + + + + | Ellie Vang | ECON | Unknown | | + + + + + Care Team Providers + +------+ + | Care Fire Apparatus Engineer Name | Role | Phone | + +------+ + | Fadi Goodrich DO | PCP | | + +------+ + Encounter Details +--------+ + + + + | Date | Type | Department | Care Team | Description | +--------+ + + + + | 07/06/ | Abstract | Digestive Health | Clinic, Surgery | | | 2016 | | [place] [address] [address] | | | | | | S [facility] | | | | | | for Health and | | | | | | [facility] 2 | | | | | | [place], [place] | | | | | | [address] | | | | | | [phone] | | | +--------+ + + + [...] Ave | | | | | | [place], [place] | | | | | | [address] | | | | | | [phone] | | | | | | | | +--------+ + + + + | 04/04/ | Telephone-S | Surgery | Orquidea Cristobal, | | | 2019 | cheduled | | WELDER AND FITTER [address] | | | | | | [facility], [place] | | | | | | [address] | | | | | | [phone] | | | | | | | | +--------+ + + + + documented as of this encounter Visit Diagnoses Not on filedocumented in this encounter"
--- OUTSIDE RECORDS SUMMARY | ~2020-02-27 | XMS | Encounter Summary ---
Demographics + + + | Address | [address] | | | [place] [address] | + + + | Home Phone [...] [place], [place] | | | | | [address] | | + + + + + | Ellie Vang | ECON | Unknown | | + + + + + Care Team Providers + +------+ + | Care Church History Professor Name | Role | Phone | [...] 2015 | | Preventive at [facility] | MD [address] | | | | | [address] | [place], [place] | | | | | [facility] | [address] | | | | | and [place], | [phone] | | | | | Building [address] | | | | | | [facility] [place] | | | | | | [address] | | | | | | [phone] | | | +--------+ + + + [...] Ave | | | | | | [place], [place] | | | | | | [address] | | | | | | [phone] | | | | | | | | +--------+ + + + + | 04/04/ | Telephone-S | Surgery | Orquidea Cristobal, | | | 2019 | cheduled | | ADMINISTRATIVE SUPPORT MANAGER [address] | | | | | | [place], [place] | | | | | | [address] | | | | | | [phone] | | | | | | | | +--------+ + + + + documented as of this encounter Visit Diagnoses Not on filedocumented in this encounter"
--- OUTSIDE RECORDS SUMMARY | ~2020-02-27 | XMS | Encounter Summary ---
Demographics + + + | Address | [address] | | | [place] [address] | + + + | Home Phone [...] [place], [place] | | | | | [address] | | + + + + + | Ellie Vang | ECON | Unknown | | + + + + + Care Team Providers + +------+ + | Care Brim Stiffener Name | Role | Phone | + +------+ + | Fadi Goodrich DO | PCP | | + +------+ + Encounter Details +--------+------+ + + + | Date | Type | Department | Care Team | Description | +--------+------+ + + + | 06/16/ | Lab | Laboratory at [facility] | | Morbid obesity with | | 2012 | | [address] | | BMI of 70 and over, | | | | Center for [facility] | | adult (HCC); Vitamin | | | | and Healing, | | D deficiency | | | | Building [address] | | disease; | | | | [place], [place] | | Intertriginous | | | | [address] | | candidiasis; | | | | [phone] | | Diabetes mellitus | | | [...] | | | | | | obesity ([facility]); PCOS | | | | | | [...] Ave | | | | | | [place], [place] | | | | | | [address] | | | | | | [phone] | | | | | | | | +--------+ + + + + | 04/04/ | Telephone-S | Surgery | Orquidea Cristobal, | | | 2019 | sherrill | | SHOW DOG TRAINER [address] | | | | | | [place], [place] | | | | | | [address] | | | | | | [phone] | | | | | | | [...] | | | PST | over, adult ([facility]) | results section. | | | | | Vitamin D deficiency | | | | | | disease | | | | | | Intertriginous | | | | | | candidiasis | | | | | | 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| | ([facility]) HTN | | | | | | [...] at | | | | | | [email or web address] Test | | | | | | developed and | | | | | | characteristics | | | | | | determined by | | | | | | [facility]. See | | | | | | Compliance Statement B: | | | | | | [email or web address]/CSPerformed | | | | | | by [place],[address] | | | | | | Natalia Martinez, [facility] [place] | | | | | | [address] | | | | | | [phone].[email or web address]. | | | | | | Mt [...] at | | | | | | [employer] Test | | | | | | developed and | | | | | | characteristics | | | | | | determined by | | | | | | [facility]. See | | | | | | Compliance Statement B: | | | | | | Close/CS | | | | + + + + + + + + | Specimen | + + | Blood - Blood | + + + + + + + | Performing | Address | City/State/Zipcode | Phone Number | | Organization | | | | + + + + + | [facility] | [address] | [place], [place] | | | [facility] | | [address] | | + + + + + [...]
--- OUTSIDE RECORDS SUMMARY | ~2020-02-27 | XMS | Encounter Summary ---
[...] [place], [place] | | | | | [address] | | + + + + + | Ellie Vang | ECON | Unknown | | + + + + + Care Team Providers + +------+ + | Care Manager Rn Name | Role | Phone [...] | | | | | | [place], [place] | | | | | | [address] | | | | | | [phone] | | | +--------+ + + + [...] Ave | | | | | | [place], [place] | | | | | | [address] | | | | | | [phone] | | | | | | | | +--------+ + + + + | 04/04/ | Telephone-S | Surgery | Orquidea Cristobal, | | | 2019 | sherrill | | HYPERION ADMINISTRATOR [address] | | | | | | [place], [place] | | | | | | [address] | | | | | | [phone] | | | | | | | | +--------+ + + + + documented as of this encounter Visit Diagnoses Not on filedocumented in this encounter"
--- OUTSIDE RECORDS SUMMARY | ~2020-02-27 | XMS | Encounter Summary ---
Demographics + + + | Address | [address] | | | [place] [address] | + + + | Home Phone [...] [place], [place] | | | | | [address] | | + + + + + | Ellie Vang | ECON | Unknown | | + + + + + Care Team Providers + +------+ + | Care Admission Nurse Coordinator Name | Role | Phone | [...] Records | | 2019 | | Center [place] [address] | | Review | | | | S [facility] | | | | | | for Health and | | | | | | [facility], [facility] 2 | | | | | | [place], [place] | | | | | | [address] | | | | | | [phone] | | | +--------+ + + + [...] Ave | | | | | | [place], [place] | | | | | | [address] | | | | | | [phone] | | | | | | | | +--------+ + + + + | 04/04/ | Telephone-S | Surgery | Orquidea Cristobal, | | | 2019 | cheduled | | BARREL RAISER HELPER [address] | | | | | | [facility] [place] | | | | | | [address] | | | | | | [phone] | | | | | | | | +--------+ + + + + documented as of this encounter Visit Diagnoses Not on filedocumented in this encounter"
--- OUTSIDE RECORDS SUMMARY | ~2020-02-27 | XMS | Encounter Summary ---
Demographics + + + | Address | [address] | | | [place] [address] | + + + | Home Phone [...] [place], [place] | | | | | [address] | | + + + + + | Ellie Vang | ECON | Unknown | | + + + + + Care Team Providers + +------+ + | Care Overnight Stocker Name | Role | Phone | [...] | Event | Medicine Clinic at | [place], [place] | | | | | [facility] | [address] | | | | | [address] | | | | | | [facility] | | | | | | and Healing, | | | | | | Building [address] | | | | | | [place], [place] | | | | | | [address] | | | | | | [phone] | | | +--------+ + + + [...] [address] | | | | | | [place], [place] | | | | | | [address] | | | | | | [phone] | | | | | | | | +--------+ + + + + | 04/04/ | Telephone-S | Surgery | Orquidea Cristobal, | | | 2019 | cheduled | | ASSISTANT LIBRARIAN [address] | | | | | | [place], [place] | | | | | | [address] | | | | | | [phone] | | | | | | | | +--------+ + + + + documented as of this encounter Visit Diagnoses Not on filedocumented in this encounter"
--- OUTSIDE RECORDS SUMMARY | ~2020-02-27 | XMS | Encounter Summary ---
Demographics + + + | Address | [address] | | | [place] [address] | + + + | Home Phone [...] [place], [place] | | | | | [address] | | + + + + + | Ellie Vang | ECON | Unknown | | + + + + + Care Team Providers + +------+ + | Care Radio Aerial Installer Name | Role | Phone | [...] | 2015 | Visit | Center at [facility] [address] [facility] | (Primary Dx); | | | | [address] [place] | [facility] [address] | 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for [facility] and | [place], [place] | with insulin therapy | | | | [place] [address] | [address] | (HCC) | | | | [place], [place] | [phone] | | | | | [address] | | | | | | [phone] | | | +--------+---------+ + + + [...] of Visit: 1:30 to 1:55 (25 minutes xvdu-[id number] with patient). Pt seen tog ether with Rossana Espinoza RD (training) SUBJECTIVE: Working with RN to get access to [employer] water exercises. States she was down to 374lbs by following LRD but with complications (n/v, fainting) - need to obtain records from PCP [facility]. Food Allergies: No Current Physical Activity: Nothing - plans to start swimming this week Diet Recall [place] (100kcal) + Activia Light - 60kcal Atkins [...] post-surgery diet progression. 4. Call or send [employer] message to dietitian with any questions. Contact information was provided. Follow up with dietitian via telephone 1 week after beginning water exercises for weight ch addie. Yuli Childs RD, [facility], [place] Pager# [phone] Rossana Espinoza MS, RD Pgr #[id number] documented in this enco unter Plan of Treatment +--------+ + + + + | Date | Type | Specialty | Care Team | Description | +--------+ + + + + | 03/22/ | Office | Cardiology | Randell Franks, | | | 2019 | Visit | | MD [address] | | | | | | [place], [place] | | | | | | [address] | | | | | | [phone] | | | | | | | | +--------+ + + + + | 04/04/ | Telephone-S | Surgery | Orquidea Cristobal, | | | 2019 | cheduled | | INKING MACHINE TENDER [address] | | | | | | [place], [place] | | | | | | [address] | | | | | | [phone] | | | | | | | | +--------+ + + + + documented as of this encounter Procedures + +--------+ + + + | Procedure Name | Priori | Date/Time | Associated Diagnosis | Comments | | | ty | | | | + +--------+ + + + | [facility] | Routin | 12/27/2014 | Morbid obesity | | | X15MIN | e | 8:17 AM | ([facility]) Diabetes | | | | | PDT | mellitus with | | | | | | insulin therapy | | | | | | ([facility]) | | + +--------+ + + + documented in this encounter Visit Diagnoses + + | Diagnosis | + + | Morbid obesity ([facility]) - Primary Morbid obesity | + + | Diabetes mellitus with insulin therapy ([facility]) | + + documented in this encounter
--- OUTSIDE RECORDS SUMMARY | ~2020-02-27 | XMS | Encounter Summary ---
Demographics + + + | Address | [address] | | | [place] [address] | + + + | Home Phone [...] [place], [place] | | | | | [address] | | + + + + + | Ellie Vang | ECON | Unknown | | + + + + + Care Team Providers + +------+ + | Care Electronic Repair Troubleshooter Name | Role | Phone | + [...] | | | | [address] | [place], [place] | | | | | Physicians [place], | [address] | | | | | 2nd Floor | [phone] | | | | | [place], [place] | | | | | | [address] | | | | | | [phone] | | | +--------+---------+ + + + [...] Brian Incisional hernia repair 02/2015 [facility]/ Dr. Cantu PHYSICAL EXAMINATION: BP 133/63 | [...] [address] [facility] Mailcode: [address] [place] [address] documented in this encounter Plan of Treatment +--------+ + + + + | Date | Type | Specialty | Care Team | Description | +--------+ + + + + | 03/22/ | Office | Cardiology | Randell Franks, | | | 2019 | Visit | | [address] | | | | | | [place], [place] | | | | | | [address] | | | | | | [phone] | | | | | | | | +--------+ + + + + | 04/04/ | Telephone-S | Surgery | Orquidea Cristobal, | | | 2019 | cheduled | | BOAT MASTER [address] | | | | | | [facility] [place] | | | | | | [address] | | | | | | [phone] | | | | | | | | +--------+ + + + + documented as of this encounter Visit Diagnoses + + | Diagnosis | + + | Incarcerated incisional hernia - Primary Incisional hernia with obstruction | + + documented in this encounter"
--- OUTSIDE RECORDS SUMMARY | ~2020-02-27 | XMS | Encounter Summary ---
Demographics + + + | Address | [address] | | | [place] [address] | + + + | Home Phone [...] [place], [place] | | | | | [address] | | + + + + + | Ellie Vang | ECON | Unknown | | + + + + + Care Team Providers + +------+ + | Care Client Experience Administrator Name | Role | Phone | + +------+ + | Fadi Goodrich DO | PCP | | + +------+ + Encounter Details +--------+ + + + + | Date | Type | Department | Care Team | Description | +--------+ + + + + | 02/10/ | Abstract | Digestive Health | Hernandez Brian, | | | 2012 | | [place] [address] [address] | [address] [facility] | | | | | [address] [facility] | [facility] | | | | | for [facility] and | [place], [place] | | | | | [facility] 2 | [address] | | | | | [place], [place] | [phone] | | | | | [address] | | | | | | [phone] | | | +--------+ + + + [...] Ave | | | | | | [place], [place] | | | | | | [address] | | | | | | [phone] | | | | | | | | +--------+ + + + + | 04/04/ | Telephone-S | Surgery | Orquidea Cristobal, | | | 2019 | sherrill | | CARDIOPULMONARY TECHNICIAN AND EEG TECH [address] | | | | | | [place], [place] | | | | | | [address] | | | | | | [phone] | | | | | | | | +--------+ + + + + documented as of this encounter Visit Diagnoses Not on filedocumented in this encounter"
--- OUTSIDE RECORDS SUMMARY | ~2020-02-27 | XMS | Encounter Summary ---
Demographics + + + | Address | [address] | | | [place] [address] | + + + | Home Phone [...] [place], [place] | | | | | [address] | | + + + + + | Ellie Vang | ECON | Unknown | | + + + + + Care Team Providers + +------+ + | Care Textile Machinery Instructor Name | Role | Phone | + +------+ + | Fadi Goodrich DO | PCP | | + +------+ + Encounter Details +--------+------+ + + + | Date | Type | Department | Care Team | Description | +--------+------+ + + + | 05/27/ | Lab | Laboratory at [facility] | | History of Frandy-en-Y | | 2017 | | [address] | | gastric bypass; | | | | [facility] | | Ventral hernia | | | | and Healing, | | without obstruction | | | | Building [address] | | or gangrene; Mixed | | | | [place], [place] | | hyperlipidemia; | | | | [address] | | 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[phone] | | type 2 without | | [...] Ave | | | | | | [place], [place] | | | | | | [address] | | | | | | [phone] | | | | | | | | +--------+ + + + + | 04/04/ | Telephone-S | Surgery | Orquidea Cristobal, | | | 2019 | cheduled | | PERMANENT WAVER [address] | | | | | | [place], [place] | | | | | | [address] | | | | | | [phone] | | | | | | | [...] + + | [facility] | [address] | [place] [address] | | | SERVICES, LYDIA | CLARENCE [...] [facility] | [address] | [place] [address] | | | SERVICES, CORE | PARK [...] (H)Comment: Hgb A1C | <5.7 % | ARSU | | | A1C | Interpretive | [...] | + + + + + | [facility] | [address] | [place] [address] | | | SERVICES, SPECIAL | PARK [...] | | | | determined by [facility] | | | | | | Laboratories. See | | | | | | Compliance Statement B: | | | | | | [employer]/CSPerformed | | | | | | by [address] | | | | | | Liliana Martinez [facility] [place] | | | | | | [address] | | | | | | [phone].[email or web address]. | | | | | | com, [...] [facility] | [address] | [place], [place] | | | [facility] | | [address] | | + + + + + [...] + + | [facility] | [address] [facility] | [place] [address] | | | SERVICES, LYDIA | CLARENCE [...] [facility] | [address] | [place] [address] | | | SERVICES, CORE | CLARENCE [...] [facility] | [address] | [place] [address] | | | SERVICES, CORE | PARK [...] [facility] | [address] | [place] [address] | | | SERVICES, CORE | CLARENCE [...] [facility] | [address] | [place] [address] | | | SERVICES, CORE | PARK [...] | + + + + + | [facility] | [address] | [place] [address] | | | SERVICES, CORE | PARK [...]
--- OUTSIDE RECORDS SUMMARY | ~2020-02-27 | XMS | Encounter Summary ---
Demographics + + + | Address | [address] | | | [place] [address] | + + + | Home Phone [...] [place], [place] | | | | | [address] | | + + + + + | Ellie Vang | ECON | Unknown | | + + + + + Care Team Providers + +------+ + | Care Can Top Setter Name | Role | Phone | [...] | | | | | | [place], [place] | | | | | | [address] | | | | | | [phone] | | | +--------+ + + + [...] Ave | | | | | | [place], [place] | | | | | | [address] | | | | | | [phone] | | | | | | | | +--------+ + + + + | 04/04/ | Telephone-S | Surgery | Orquidea Cristboal, | | | 2019 | sherrill | | CABLE ASSEMBLER [address] | | | | | | [place], [place] | | | | | | [address] | | | | | | [phone] | | | | | | | | +--------+ + + + + documented as of this encounter Visit Diagnoses Not on filedocumented in this encounter"
--- OUTSIDE RECORDS SUMMARY | ~2020-02-27 | XMS | Encounter Summary ---
Demographics + + + | Address | [address] | | | [place] [address] | + + + | Home Phone [...] [place], [place] | | | | | [address] | | + + + + + | Ellie Vang | ECON | Unknown | | + + + + + Care Team Providers + +------+ + | Care Machine Zipper Trimmer Name | Role | Phone | [...] | Pain | Diagnoses | Analisa Georges Graphic Design Teacher Psych | | | | Management | Morbid | DANIELLE BrunerP | [facility] [address] | | | | | obesity with | [address] | | | | | BMI of [address] | Center for | | | | | and over, | [place], [place] | Health and | | | | | adult (HCC) | [address] | Healing, | | | | | Procedures | Phone: | Building | | | | | CONSULT TO | [phone] | [address] Floor | | | | | PAIN | Fax: | [place], [place] | | | | | MANAGEMENT | [phone] | [address] | | | | | ID | | Phone: | | | | | PSYCHIATRIC | | [phone] | | | | | DIAGNOSTIC | | Fax: | | | | | EVAL, NO MED | | [phone] | | | | | SV[facility] ID | | | | | | [...] | [facility] S[facility] | | | with GALLERY OR MUSEUM TECHNICIAN | | hypertension | [address] | [address] | | | | | Right | [address] | [address] | | | | | heart | [place], [place] | [place] for | | | | | failure | [address] | Health and | | | | | ([facility]) Type | Phone: | Healing, | | | | | 2 diabetes | [phone] | Building 2 | | | | | mellitus | Fax: | [place], [place] | | | | | without | [phone] | [address] | | | | | complication | | Phone: | | | | | , with | | [phone] | | | | | long-term | | Fax: | | | | | current use | | [phone] | | | | | of insulin | | | | | | | ([facility]) | | | | [...] | 2016 | Visit | Center at [facility] [address] | [facility] [address] | BMI of 70 and over, | | | | [address] | [facility] [place] | adult ([facility]) (Primary | | | | for Health and | [address] | Dx); Chronic | | | | Healing, Building 2 | | diastolic heart | | | | [place], [place] | | failure (HCC); | | | | [address] | | Immobility; Severe | | | [...] | | | | | | ([facility]); | | [...] encounter Patient Instructions Patient Instructions Shereen Georges, [facility] - 02/02/2017 9:00 AM PDTPlan: The [...] to your private appointme nt with the screen printing loader unloader. These classes will be scheduled apporoximately 1 month apart to allow time for you to put the teaching into action. Please call [phone] + Labs needed: Pre op: drug screen [...] are done + EKG: Please Have your financial writer do the eval and send it to us + Pre-op Psychological Evaluation: Your referral is at [facility], The Pain Management Office will call you [...] be safely completed. + Sign up for [employer] so that we can communicate easily back and forth Once the above list is completed and copies have been received by our office, we will submi t for insurance authorization then schedule with the surgeon. KAIN De Dios DNP, HILDA Nurse Practitioner for Bariatric Surgery [facility] | [address] | [place], [place] | [address] | documented in this encounter Progress Notes [...] t loss. Consults: Cardiology: Dr. Edson Livingston [facility] Dental Equipment Installer And Servicer: Nicike : [facility] But comes to magen Business Lawyer at [facility]: Dr. Zhong for weight loss medication Zoroastrian or cultural reason you would refuse [...] once daily., Disp : , Rfl: CALCIUM [id number] ORAL, Take 2 tablets by mouth two [...] Allergic rhinitis Anemia Anxiety Bipolar disorder ([facility]) Chronic wound infection of abdomen from 2010 Cough Depression Diverticulitis of colon Dizziness Glaucoma Heart burn Hemorrhoids Hernia of abdominal wall Incisional hernia, incarcerated 2012 Insomnia Irregular periods Kidney stone Leaking of urine Leg sore Lymphedema Morbid obesity with body mass index of 70 and over in adult ([facility]) Myalgia and myositis Nausea Neck pain Numbness Osteoarthritis of knee Palpitations Pneumonia Shortness of breath Staphylococcal infection Stroke ([facility]) TIA (transient ischemic attack) [...] History Narrative Updated 11/09/15 She lives in [place] with her mother and her sister (also her caregiver) lives in an [facility]. She has 2 grandchildren (age 4 and 7) who live with her daughter and son-in-law Her boyfriend lives in [place] Family History Problem Relation Heart Attack Father [...] extre mity edema, hypertension, hyperlipidemia. Denies CHF, [place], ischemic heart disease, or pulmon nikki hypertension. [...] years without success. She qualifies for medically [facility] weight loss surgery to control co-morbidities. Elzbieta [...] management, and was referred as well to senior advisory. Plan: Request that her financial writer clear her, and make recommendations 3. Mammogram: [...] to your private appointme nt with the screen printing loader unloader. These classes will be scheduled apporoximately 1 month apart to allow time for you to put the teaching into action. Please call [phone] + Labs needed: lipids, CBC, CMP, TSH, [...] are done + EKG: Please Have your financial writer do the eval and send it to us + Pre-op Psychological Evaluation: Your referral is at [facility], The Pain Management Office will call you [...] be safely completed. + Sign up for [employer] so that we can communicate easily back and forth Once the above list is completed and copies have been received by our office, we will submi t for insurance authorization then schedule with the surgeon. KAIN De Dios DNP, STAFF COMMAND AND CONTROL OFFICER Nurse Practitioner for Bariatric Surgery [facility] | [address] | [place], [place] | [address] | documented in this encounter Plan of Treatment +--------+ + + + + | Date | Type | Specialty | Care Team | Description | +--------+ + + + + | 03/22/ | Office | Cardiology | Randell Zhong, | | | 2019 | Visit | | MD [address] | | | | | | [place], [place] | | | | | | [address] | | | | | | [phone] | | | | | | | | +--------+ + + + + | 04/04/ | Telephone-S | Surgery | Orquidea Cristobal, | | | 2019 | cheduled | | STAFF COMMAND AND CONTROL OFFICER [address] | | | | | | [place], [place] | | | | | | [address] | | | | | | [phone] | | | | | | | [...]
--- OUTSIDE RECORDS SUMMARY | ~2020-02-27 | XMS | Encounter Summary ---
Demographics + + + | Address | [address] | | | [place] [address] | + + + | Home Phone [...] [place], [place] | | | | | [address] | | + + + + + | Ellie Vang | ECON | Unknown | | + + + + + Care Team Providers + +------+ + | Care Cutter Helper Name | Role | Phone | [...] PRINCE Giles | | | | | [place], [place] | [address] | | | 11/12/ | | [address] | [place], [place] | | | 2012 | | [phone] | [address] | | | | | | [phone] | | | | | | | [...] yuriy tral hernia. She was transferred from [place] for surgical evaluation of possible incarcer ated [...] Cipro. POD 5 she was discharged ho tx, tolerating a diabetic diet. Having bowel function. [...] yuriy tral hernia. She was transferred from [place] for surgical evaluation of possible incarcer ated [...] Cipro. POD 5 she was discharged ho tx, tolerating a diabetic diet. Having bowel function. [...] keeping you from eating and drinking, Call [phone]. It is important to stay hydrated! If [...] taking narcotic that contain Tylenol (acetaminophen) Example: [place], Lortab, Vicodin, hydrocodone/APAP, Percocet, Tylenol #3 PAIN MEDICATIONS are ONLY REFILLED during CLINIC APPOINTMENTS. Please call [phone] to schedule an appointment. Your Follow-Up Plan Follow up with ROBIN MEJIA in 2 weeks. Contact information: [address] [facility] [address] Vitals on discharge: Ht 154.9 cm (5' [...] might be different f rom the original. [facility] DEPARTMENT OF SURGERY EMERGENCY GENERAL SURGERY [...] clinic [place]. [place] [phone] pager number [facility] [phone] [facility] [phone] Aminta Goodwin Md - 11/11/2012 7:40 AM PDT [facility] DEPARTMENT OF SURGERY EMERGENCY GENERAL SURGERY Division of Trauma and Critical Care Attending Physician: Andie Brian MD Progress Note Note Date: 11/11/2012 Admission Date: 11/06/2012 DYLAN ROMERO, [id number] Hospital Day #5 INTERVAL EVENTS none acute [...] mg, Rectal, DAILY PRN, Aminta Wilson MD rmbwjjxbzq-ufmiycebsylee-ryacrmtz (aka FIORICET) 50-325-40 mg 1 Tab, 1 [...] Jayne Ponce MD, 1 mg at 11/10/12801 ssgkuuzsxi-fviedxrqdpkaw-bbpsznjn (aka FIORICET) 50-325-40 mg 1 Tab, 1 [...] in preservative free NaCl 0.9% 50 mL EPIC INTERFACE ANALYST infusion, , Intravenous, KIESHA NUGRANT, Aracely Mccartynato, [...] diet -add bowel regimen Acute pain -HM EPIC INTERFACE ANALYST, tylenol -convert to oral pain medication once [...] Fluids: LR 125ml/hr Feeding: NPO Analgesia: Dilaudid EPIC INTERFACE ANALYST Sedation: not indicated Thromboprophylaxis: enoxaparin Head of [...] Ponce MD, 1 mg at 11/09/12 0855 iafpcfvbat-mbmiimvkabwrg-pizsplut (aka FIORICET) 50-325-40 mg 1 Tab, 1 [...] in preservative free NaCl 0.9% 50 mL EPIC INTERFACE ANALYST infusion, , Intravenous, KIESHA NUOUS, Aracely Cruzo, [...] drainage <30ml for 24hrs Acute pain -HM EPIC INTERFACE ANALYST, tylenol Diabetes: -insulin gtt not started due [...] Fluids: LR 125ml/hr Feeding: NPO Analgesia: Dilaudid EPIC INTERFACE ANALYST Sedation: not indicated Thromboprophylaxis: enoxaparin Head of bed: > 30 Ulcer prophylaxis: pepcid Glycemic control: adequate Activity/PT/OT: Ongoing Yogurt: ABX on Probiotics:yes AMINTA WILSON MD General Surgery, R1 Kaleb Martin N P - 11/08/2012 8:49 AM PDT [facility] DEPARTMENT OF SURGERY EMERGENCY GENERAL SURGERY Division of Trauma and Critical Care Attending Physician: Andie Brina MD Progress Note Note Date: 11/08/2012 Admission Date: 11/06/2012 DYLAN ROMERO, [id number] Hospital Day #2 INTERVAL EVENTS NO SUBJECTIVE Pain well controlled; has headache attributed to dilaudid EPIC INTERFACE ANALYST Tylenol did not help. Flatus: YES Tolerating [...] trials today. -DC ruiz Acute pain -HM EPIC INTERFACE ANALYST, tylenol Diabetes: -insulin gtt not started due [...] Fluids: LR 125ml/hr Feeding: NPO Analgesia: Dilaudid EPIC INTERFACE ANALYST Sedation: not indicated Thromboprophylaxis: enoxaparin Head of bed: > 30 Ulcer prophylaxis: pepcid Glycemic control: adequate Activity/PT/OT: Ongoing Yogurt: ABX on Probiotics: No KALEB WALKER NP [facility] [address] [place] [address] elvin Stephens MD - 11/07/2012 9:51 PM [...] 7.33* PCO2 49* PO2 113* HCO3 25 JAOGJ2KNK 26 W6XSMAJX 98.3* Q5UFALXDG -- FIO2 60 ABGEXCESS -0.9 Assessment, Medical Decision Making and Plan 1. Incarcerated hernia, now s/p repair and panniculectomy -Binder, pain control, minimize nausea and coughing PRN. -NG clamping trials today. 2. Acute pain -HM EPIC INTERFACE ANALYST, tylenol 3. Diabetes: -insulin gtt 4. Morbid [...] Dione Grimes MD R-2, General Surgery Pager: [phone] [facility] [place] Department of Surgery Trauma ICU Team Pager (24hrs/day): [phone] I was present with the resident during the history and exam. I discussed the case with the resident and agree with the findings and plan as documented in the resident s note. KELVIN STEPHENS MD [facility] [address] [place] [address] [id number] uOnur patton MD - 11/07/2012 2:37 AM [...] in preservative free NaCl 0.9% 50 mL EPIC INTERFACE ANALYST infusion Intravenous CON TINUOUS Aracely Flores, DO [...] POD#1 s/p primary repair. 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 office machine servicer and prn tylenol, continue prozac and zyprexa [...] F: probable remain NPO today A: dilaudid office machine servicer, prn tylenol S: prn benzos as she is at home T: will start prophylactic lovenox today H: HOB >30 degrees U: pepcid G: insulin gtt ONUR ALLEN MD, PGY3 [facility] [address] [id number] [place] [address] Onelia Shrestha MD - 11/06/2012 8:41 AM PDT [facility] DEPARTMENT OF SURGERY Division of Trauma and Critical Care Emergency General Surgery / Acute Care Surgery Attending Physician: Andie Brian MD Note Date: 11/06/2012 Admission Date: 11/06/2012 DYLAN ROMERO, [id number] Hospital Day #0 OVERNIGHT EVENTS: anxious SUBJECTIVE: [...] zenia LABS: reviewed and are available in [employer] (if new data) IMAGING: VASCULAR: IMPRESSION: Dylan [...] Avyesenia | | | | | | [facility] [place] | | | | | | [address] | | | | | | [phone] | | | | | | | | +--------+ + + + + | 04/04/ | Telephone-S | Surgery | Orquidea Cristobal, | | | 2019 | cheduhipolito | | SALON SHAMPOO ASSISTANT [address] | | | | | | [place], [place] | | | | | | [address] | | | | | | [phone] | | | | | | | [...] Mae | | | | | | [place] | | | | + + + [...] AMES | [address] | [place], [place] | | | JUSTINE DAWN OF JAKY | [address] | [address] | | | TESTS | | | [...] MARQUAM | [address] | [place], [place] | | | JUSTINE DAWN OF CARE | [address] | [address] | | | TESTS | | | [...] [facility] | [address] | [place] [address] | | | SERVICES, CORE | PARK [...] [facility] | [address] | [place] [address] | | | LYDIA RANGEL | PARK [...] | + + + + + | [facility] | [address] | [place] [address] | | | SERVICES, CORE | CLARENCE [...] MARQUAM | [address] | [place], [place] | | | [place] POINT OF CARE | [address] | [address] | | | TESTS | | | [...] MARQUAM | [address] | [place], [place] | | | [place] POINT OF CARE | [facility] | [address] | | | TESTS | | | [...] AMES | [address] | [place], [place] | | | [place] POINT OF CARE | [address] | [address] | | | TESTS | | | [...] MARQUAM | [address] | [place], [place] | | | [place] POINT OF CARE | [address] | [address] | | | TESTS | | | [...] - MARQUAM | [address] | [place], [place] | | | [place] POINT OF [facility] | [address] | [address] | | | TESTS | | | [...] [facility] | [address] | [place] [address] | | | SERVICES, CORE | PARK [...] 9 | 4 - 11 mmol/L | [facility] | | | GAP(ALB | | | [...] + + + | [facility] [employer] | [address] | [place] [address] | | | SERVICES, CORE | [address] | | | + + + [...] | + + + + + | [facility] | [address] | [place] [address] | | | CLAIRE, LYDIA | CLARENCE [...] (H) | 60 - 99 mg/dL | [facility] - | | | GLUCOSE, [...] AMES | [address] | [place], [place] | | | [place] POINT OF CARE | [address] | [address] | | | TESTS | | | [...] KWAKU | [address] | [place], [place] | | | JUSTINE DAWN OF [facility] | [address] | [address] | | | TESTS | | | [...] KWAKU | [address] | [place], [place] | | | JUSTINE DAWN OF JAKY | [facility] | [address] | | | TESTS | | | [...] (H) | 60 - 99 mg/dL | [facility] - | | | GLUCOSE, [...] MARQUAM | [address] | [place], [place] | | | L[place] POINT OF CARE | [address] | [address] | | | TESTS | | | [...] AMES | [address] | [place], [place] | | | JUSTINE DAWN OF CARE | [facility] | [address] | | | TESTS | | | [...] | + + + + + | [facility] | [address] | [place] [address] | | | SERVICES, LYDIA | CLARENCE [...] the MDRD equation recommended by the | [facility] | | National Kidney Disease Education Program. [...] | [facility] | [address] | [place] [address] | | | SERVICES, CORE | PARK [...] | + + + + + | [facility] | [address] | [place] [address] | | | SERVICES, CORE | CLARENCE [...] MARQUAM | [address] | [place], [place] | | | JUSTINE DAWN OF CARE | [address] | [address] | | | TESTS | | | [...] MARPATAM | [address] | [place], [place] | | | L[place] POINT OF CARE | [facility] | [address] | | | TESTS | | | [...] AMES | [address] | [place], [place] | | | JUSTINE DAWN OF CARE | [address] | [address] | | | TESTS | | | [...] | | | Final CULTURE | | [place] | | | | RESULT:>100,000 cfu/ml | [...] + | [facility] | [address] | [place] [address] | | | [place] | | | | + + + [...] | + + + + + | [facility] | [address] | [place] [address] | | | SERVICES, CORE | CLARENCE [...] [facility]ENTER [facility] | [address] | [place] [address] | | | LYDIA RANGEL | CLARENCE [...] 90 | 60 - 99 mg/dL | [facility] - | | | GLUCOSE, [...] AMES | [address] | [place], [place] | | | L[place] POINT OF CARE | [address] | [address] | | | TESTS | | | [...] the MDRD equation recommended by the | [facility] | | National Kidney Disease [...] | [facility] | [address] | [place] [address] | | | LYDIA RANGEL | CLARENCE [...] [facility] | [address] | [place] [address] | | | SERVICES, CORE | PARK [...] | [facility] | [address] | [place] [address] | | | SERVICES, CORE | CLARENCE [...] 86 | 60 - 99 mg/dL | [facility] - | | | GLUCOSE, [...] + + + | NKECH[facility] AMES | [address] | [place], [place] | | | JUSTINE DAWN OF [facility] | [address] | [address] | | | TESTS | | | [...] MARQUAM | [address] | [place], [place] | | | JUSTINE DAWN OF CARE | [address] | [address] | | | TESTS | | | [...] - KWAKU | [address] | [place], [place] | | | LÓPEZ OLIVIA OF [facility] | [facility] | [address] | | | TESTS | | | [...] CENTER LAB[facility] | [address] | [place] [address] | | | SERVICES, CORE | [address] | | | + + + + + MAGNESIUM, PLASMA (11/08/2012 7:48 AM PDT) + +---------+ + + + | Component | Value | Ref Range | Performed | Pathologist | | | | | At | Signature | + +---------+ + + + | MAGNESIUM,P | 1.4 (L) | 1.8 - 2.5 mg/dL | [facility] | | | LASMA | [...] | + + + + + | [facility] | [address] [facility] | [place] [address] | | | SERVICES, CORE | CLARENCE [...] the MDRD equation recommended by the | [facility] | | National Kidney Disease [...] | [facility] | [address] | [place] [address] | | | LYDIA RANGEL | CLARENCE [...] - [facility] | [address] | [place], [place] | | | JUSTINE DAWN OF CARE | [address] | [address] | | | TESTS | | | [...] AMES | [address] | [place], [place] | | | L[place]PEZ POINT OF CARE | [address] | [address] | | | TESTS | | | [...] MARQUAM | [address] | [place], [place] | | | JUSTINE DAWN OF JAKY | [address] | [address] | | | TESTS | | | [...] [facility] | [address] | [place] [address] | | | SERVICES, CORE | PARK [...] [facility] | [address] | [place] [address] | | | SERVICES, CORE | PARK [...] | + + + + + | [facility] | [address] | [place] [address] | | | SERVICES, CORE | [address] | | | + + + + + X-RAY PORTABLE CHEST 1 VIEW (11/06/2012 4:46 PM PDT) + + + + + + | Component | Value | Ref Range | Performed | Pathologist | | | | | At | Signature | + + + + + + | X-RAY | STUDY: IA CHEST 1 VIEW | | | | | PORTABLE | 11/06/12 16:46:00 | | | | | CHEST 1 | INDICATION: Right upper | | | | | VIEW | lobe opacity. | | | | | | COMPARISON: Earlier same | | | | | | day a STUDY: [place] CHEST 1 | | | | | [...] | | + +---------+ + + | [facility] DEPARTMENT OF | | | | | RADIOLOGY | | | | + +---------+ + + X-RAY PORTABLE CHEST 1 VIEW (11/06/2012 4:30 PM PDT) + + + + + + | Component | Value | Ref Range | Performed | Pathologist | | | | | At | Signature | + + + + + + | X-RAY | STUDY: IA CHEST 1 VIEW | | | | [...] [facility] | [address] | [place] [address] | | | SERVICES, CORE | CLARENCE [...] CENTER LAB[facility] | [address] | [place] [address] | | | SERVICES, CORE | CLARENCE [...] | + + + + + | [employer] | [address] | [place] [address] | | | SERVICES, CORE | CLARENCE [...] MARQUAM | [address] | [place], [place] | | | JUSTINE DAWN OF CARE | [address] | [address] | | | TESTS | | | [...] [facility] | [address] | [place] | | | JUSTINE DAWN OF CARE | [address] | [address] | | | TESTS | | | [...] MARQUAM | [address] | [place], [place] | | | L[place]PEZ POINT OF CARE | [facility] | [address] | | | TESTS | | | [...] AMES | [address] | [place] | | | JUSTINE DAWN OF CARE | [address] | [address] | | | TESTS | | | [...] [facility] | [address] | [place], [place] | | | JUSTINE DAWN OF CARE | [address] | [address] | | | TESTS | | | [...] - [facility] | [address] | [place], [place] | | | JUSTINE DAWN OF CARE | [facility] | [address] | | | TESTS | | | [...] AMES | [address] | [place] | | | JUSTINE DAWN OF [facility] | [facility] | [address] | | | TESTS | | | [...] KWAKU | [address] | [place], [place] | | | JUSTINE DAWN OF CARE | [address] | [address] | | | TESTS | | | [...] - [facility] | [address] | [place], [place] | | | JUSTINE DAWN OF CARE | [address] | [address] | | | TESTS | | | [...] AMES | [address] | [place], [place] | | | JUSTINE DAWN OF CARE | [address] | [address] | | | TESTS | | | [...] MARQUAM | [address] | [place], [place] | | | JUSTINE DAWN OF CARE | [address] | [address] | | | TESTS | | | [...] | [facility] | [address] | [place] [address] | | | SERVICES, | [address] [...] | NKECHI AMES | [address] | [place], [place] | | | JUSTINE DAWN OF JAKY | [facility] | [address] | | | TESTS | | | [...] [facility] | [address] | [place] [address] | | | SERVICES, | [address] [...] | + + + + + | [facility] | [address] | [place] [address] | | | SERVICES, | [address] [...] [facility] | [address] | [place] [address] | | | SERVICES, CORE | PARK [...] CENTER LAB[facility] | [address] | [place] [address] | | | SERVICES, CORE | PARK [...] + + + | [facility] | [address] | [place] [address] | | | SERVICES, CORE | PARK [...] + + + | [facility] [employer] | [address] | [place] [address] | | | SERVICES, CORE | CLARENCE [...] [facility]ENTER LAB[facility] | [address] | [place] [address] | | | SERVICES, CORE | [address] | | | + + + + + 12 LEAD ECG (11/06/2012 5:17 AM PDT) + + + + + + | Component | Value | Ref Range | Performed | Pathologist | | | | | At | Signature | + + + + + + | VENTRICULAR | 96 | BPM | [facility] DEPT | | | RATE | | [...] view image for the detailed interpretation from [employer] results. | CARDIOLOGY | + + + + + + + + | Performing | Address | City/State/Zipcode | Phone Number | | Organization | | | | + + + + + | [facility] | [address] | [place], [place] | | | CARDIOLOGY | [address] | [address] | | + + + + + [...] | + + + + + | [facility] | [address] | [place] [address] | | | SERVICES, CORE | CLARENCE [...] NKECHI ROBERTS | [address] | [place] [address] | | | SERVICES, CORE | PARK [...] | 1 tablet | | | | wzxpbthhvi-ahhdgodutxzhr-baxccvfv | | 13 8:02 | | | [...] 13 7:36 | | | | | EPIC INTERFACE ANALYST infusion intravenous, | | PM PDT | [...] | | | | Until [facility] 11/11/12 at 0702 | | | | [...] 13 9:26 | | | | | [facility] 11/11/12 at 1000 | | AM PDT [...] | | | | last modification) on [facility] 11/11/12 | | | | | | [...]
--- OUTSIDE RECORDS SUMMARY | ~2020-02-27 | XMS | Encounter Summary ---
Demographics + + + | Address | [address] | | | [place] [address] | + + + | Home Phone [...] + | Katalina Padilla | ECON | [address] | | | | | [place], [place] | | | | | [address] | | + + + + + | Ellie Vang | ECON | Unknown | | + + + + + Care Team Providers + +------+ + | Care Fisher Eel Spear Name | Role | Phone | + [...] Pre-operative | | 2019 | cheduled | [facility] at | | evaluation | | | | [facility] | | | | | | [address] | | | | | | [facility] | | | | | | and Healing, | | | | | | [address] | | | | | | [place], [place] | | | | | | [address] | | | | | | [phone] | | | +--------+ + + + [...] of this encounter Patient Instructions Patient Instructions Vinnie Aide, RN - 06/02/2019 3:23 PM PSTFormatting of [...] not have access to check in ti mes, and we encourage you to contact your [...] MG TABLET ATENOLOL 50 MG TABLET CALCIUM CRB&QSN-Z4-BBX10-GENIS ORAL CYANOCOBALAMIN (VIT B-12) 1,000 MCG TABLET [...] ch as Uber/Lyft), or public transportation. An Uber/Lyft/milk driver does not count as the responsible [...] it is after office hours, call the [facility] blueprinting machine operator at [phone] and ask them to page him or [...] Ave | | | | | | [place], [place] | | | | | | [address] | | | | | | [phone] | | | | | | | | +--------+ + + + + | 04/04/ | Telephone-S | Surgery | Orquidea Cristobal, | | | 2019 | chesteve | | PARTNER [facility] [address] | | | | | | [place], [place] | | | | | | [address] | | | | | | [phone] | | | | | | | | +--------+ + + + + documented as of this encounter Visit Diagnoses Not on filedocumented in this encounter
--- OUTSIDE RECORDS SUMMARY | ~2020-02-27 | XMS | Encounter Summary ---
Demographics + + + | Address | [address] | | | [place] [address] | + + + | Home Phone [...] [place], [place] | | | | | [address] | | + + + + + | Ellie Vang | ECON | Unknown | | + + + + + Care Team Providers + +------+ + | Care Drug Coordinator Name | Role | Phone | [...] | | | | | | [facility] | | | | | | [facility] Admitting | | | | | | Desk Located on the | | | | | | 9th floor | | | | | | [place], [place] | | | | | | [address] | | | +--------+ + + + [...] Ave | | | | | | [place], [place] | | | | | | [address] | | | | | | [phone] | | | | | | | | +--------+ + + + + | 04/04/ | Telephone-S | Surgery | Orquidea Cristobal, | | | 2019 | cheduled | | CUTTER AND PRESSER [address] | | | | | | [place], [place] | | | | | | [address] | | | | | | [phone] | | | | | | | [...]
--- OUTSIDE RECORDS SUMMARY | ~2020-02-27 | XMS | Encounter Summary ---
Demographics + + + | Address | [address] | | | [place] [address] | + + + | Home Phone [...] + | Katalina Padilla | ECON | [address] | | | | | [place], [place] | | | | | [address] | | + + + + + | Ellie Vang | ECON | Unknown | | + + + + + Care Team Providers + +------+ + | Care It Risk And Assurance Manager Name | Role | Phone | [...] [id number] | | | | | | [facility] | | | | | | [place], [place] | | | | | | [address] | | | | | | [phone] | | | +--------+ + + + [...] Ave | | | | | | [place], [place] | | | | | | [address] | | | | | | [phone] | | | | | | | | +--------+ + + + + | 04/04/ | Telephone-S | Surgery | Orquidea Cristobal, | | | 2019 | cheduled | | SAFETY OFFICER [address] | | | | | | [facility] [place] | | | | | | [address] | | | | | | [phone] | | | | | | | | +--------+ + + + + documented as of this encounter Visit Diagnoses Not on filedocumented in this encounter"
--- OUTSIDE RECORDS SUMMARY | ~2020-02-27 | XMS | Encounter Summary ---
Demographics + + + | Address | [address] | | | [place] [address] | + + + | Home Phone [...] [place], [place] | | | | | [address] | | + + + + + | Ellie Vang | ECON | Unknown | | + + + + + Care Team Providers + +------+ + | Care Front Desk Lead Name | Role | Phone | [...] | | | | | | [facility] [place], | | | | | | [place] [address] | | | | | | [phone] | | | +--------+ + + + [...] Ave | | | | | | [place], [place] | | | | | | [address] | | | | | | [phone] | | | | | | | | +--------+ + + + + | 04/04/ | Telephone-S | Surgery | Orquidea Cristobal, | | | 2019 | cheduled | | OUTDOOR LANDSCAPE ARCHITECT [address] | | | | | | [place], [place] | | | | | | [address] | | | | | | [phone] | | | | | | | | +--------+ + + + + documented as of this encounter Visit Diagnoses Not on filedocumented in this encounter"
--- OUTSIDE RECORDS SUMMARY | ~2020-02-27 | XMS | Clinical Summary ---
Demographics + + + | Address | [address] | | | [place] [address] | + + + | Home Phone [...] Author + + + | Author | [facility] | + + + | Organization | [facility] | + [...] [place], [place] | | | | | [address] | | + + + + + | Ellie Vang | ECON | Unknown | | + + + + + Care Team Providers + +------+ + | Care Straw Hat Brusher Name | Role | Phone | + +------+ + | Kenyatta Cardenas MD | PCP | | + +------+ + Source Comments [facility] Allergies + + + + + + [...] 0 | | | Activ | | [id number] | mouth two times | | | [...] | + + + +---+------+---+-------+ | thyroid (PLATFORM SUPERVISOR | Take 30 mg by mouth | [...] [address] | | | | | | [place], [place] | | | | | | [address] | | | | | | [phone] | | | | | | | | +--------+ + + + + | 04/04/ | Telephone-S | Surgery | [facility], | | | 2019 | cheduled | | [facility] [address] | | | | | | [place], [place] | | | | | | [address] | | | | | | [phone] | | | | | | | [...] - | | | | | | /[id number] | | [id number]: Qty: 1 on | | | | | | 525 | | 03/01/2018 by Ion Pandey | | | | | | | | MD [facility] at [facility] | | | [...] - | | | | | | /[id number] | | [id number]: Qty: 1 on | | | | | | 173 | | 03/01/2018 by Ion Pandey | | | | | | | | MD [facility] at [facility] | | | [...] | | | + +--------+ +--------+-------+---------+--------+ | LABOR LAW PROFESSOR MEDICAID | LABOR LAW PROFESSOR | xxxxxxxx | | | | Medica [...] [email or web address] | | | 3 (Home) | [id number] | + +--------+ +--------+ + + Advance [...]
--- OUTSIDE RECORDS SUMMARY | ~2020-02-27 | XMS | Encounter Summary ---
Demographics + + + | Address | [address] | | | [place] [address] | + + + | Home Phone [...] [place], [place] | | | | | [address] | | + + + + + | Ellie Vang | ECON | Unknown | | + + + + + Care Team Providers + +------+ + | Care Slumber Room Attendant Name | Role | Phone | + +------+ + | Fadi Goodrich DO | PCP | | + +------+ + Encounter Details +--------+ + + + + | Date | Type | Department | Care Team | Description | +--------+ + + + + | 10/27/ | Telephone | [facility] at [facility] | Leslie Mistry, | | | 2017 | | [address] | PhD [address] [facility] | | | | | [facility] | [facility] | | | | | and Healing, | [place], [place] | | | | | [facility] | [address] | | | | | Floor [place], [place] | [phone] | | | | | [address] | | | | | | [phone] | | | +--------+ + + + [...] Ave | | | | | | [place], [place] | | | | | | [address] | | | | | | [phone] | | | | | | | | +--------+ + + + + | 04/04/ | Telephone-S | Surgery | Orquidea Cristobal, | | | 2019 | cheduled | | MEDICAL RECORDS MANAGER [address] | | | | | | [place], [place] | | | | | | [address] | | | | | | [phone] | | | | | | | | +--------+ + + + + documented as of this encounter Visit Diagnoses Not on filedocumented in this encounter"
--- OUTSIDE RECORDS SUMMARY | ~2020-02-27 | XMS | Encounter Summary ---
Demographics + + + | Address | [address] | | | [place] [address] | + + + | Home Phone [...] + | Katalina Padilla | ECON | [address] | | | | | [place], [place] | | | | | [address] | | + + + + + | Ellie Vang | ECON | Unknown | | + + + + + Care Team Providers + +------+ + | Care Whiting Can Worker Name | Role | Phone | [...] | | | | | (HCC) | [place], [place] | Hospital, | | | | | Procedures | [address] | 10th Floor | | | | | CT ABDOMEN & | Phone: | [place], [place] | | | | | PELVIS WWO | | [address] | | | | | IV CONTRAST | Fax: | Phone: | | | | | NE [address] | [phone] | [phone] | | | | | ABDOMEN&PELV | | Fax: | | | | | IS | | [phone] | | | | | W/CONTRAST | [...] | 2015 | Encounter | Lab at [facility] [address] | | | | | [address] [facility] | | | | | | [facility] and Healing, | | | | | | Building 1, 3rd | | | | | | Floor [place], [place] | | | | | | [address] | | | | | | [phone] | | | +--------+ + + + [...] [address] | | | | | | [place], [place] | | | | | | [address] | | | | | | [phone] | | | | | | | | +--------+ + + + + | 04/04/ | Telephone-S | Surgery | Orquidea Cristobal, | | | 2019 | sherrill | | PARKING PATROLLER [address] | | | | | | [address] [place], [place] | | | | | | [address] | | | | | | [phone] | | | | | | | [...] | + + + + + | [facility] | [address] [facility] | [place] [address] | | | OF CARE TESTS | | | | + + + + + documented in this encounter Visit Diagnoses + + | Diagnosis | + + | Abdominal pain | + + | Morbid obesity (HCC) Morbid obesity | + + documented in this encounter"
--- OUTSIDE RECORDS SUMMARY | ~2020-02-27 | XMS | Encounter Summary ---
Demographics + + + | Address | [address] | | | [place] [address] | + + + | Home Phone [...] [place], [place] | | | | | [address] | | + + + + + | Ellie Vang | ECON | Unknown | | + + + + + Care Team Providers + +------+ + | Care Supervisor Contact Lens Name | Role | Phone | + [...] | | | | | | [address] [place], [place] | | | | | | [address] | | | | | | [phone] | | | +--------+ + + + [...] [address] | | | | | | [place], [place] | | | | | | [address] | | | | | | [phone] | | | | | | | | +--------+ + + + + | 04/04/ | Telephone-S | Surgery | Orquidea Cristobal, | | | 2019 | cheduhipolito | | ADAPTED PHYSICAL EDUCATION SPECIALIST [address] | | | | | | [place] | | | | | | [address] | | | | | | [phone] | | | | | | | | +--------+ + + + + documented as of this encounter Visit Diagnoses Not on filedocumented in this encounter"
--- OUTSIDE RECORDS SUMMARY | ~2020-02-27 | XMS | Encounter Summary ---
Demographics + + + | Address | [address] | | | [place] [address] | + + + | Home Phone [...] [place], [place] | | | | | [address] | | + + + + + | Ellie Vang | ECON | Unknown | | + + + + + Care Team Providers + +------+ + | Care Applications Trainer Name | Role | Phone | [...] | | | | | | [place], [place] | | | | | | [address] | | | | | | [phone] | | | +--------+ + + + [...] Ave | | | | | | [place], [place] | | | | | | [address] | | | | | | [phone] | | | | | | | | +--------+ + + + + | 04/04/ | Telephone-S | Surgery | Orquidea Cristobal, | | | 2019 | sherrlil | | SUPERVISOR ADULT EDUCATION [address] | | | | | | [place], [place] | | | | | | [address] | | | | | | [phone] | | | | | | | | +--------+ + + + + documented as of this encounter Visit Diagnoses Not on filedocumented in this encounter"
--- OUTSIDE RECORDS SUMMARY | ~2020-02-27 | XMS | Encounter Summary ---
Demographics + + + | Address | [address] | | | [place] [address] | + + + | Home Phone [...] [place], [place] | | | | | [address] | | + + + + + | Ellie Vang | ECON | Unknown | | + + + + + Care Team Providers + +------+ + | Care Stacker Name | Role | Phone | [...] | [address] | Ave [place], [place] | (Primary Dx); | | | | for Health and | [address] | Ventral hernia | | | | Healing, Building [address] | [phone] | without obstruction | | | | [facility] [place] | | or gangrene; Mixed | | | | [address] | | hyperlipidemia; | | | | [phone] | | Diabetes mellitus | | | [...] is doing Refill oxycodone Rx +Take acid citrix administrator for first 3 mos, then wean off [...] to POC and [facility] any issues. documented in this [...] times daily. , Disp: , Rfl: CALCIUM CRB&[id number]-GENIS ORAL, Take 2 tablets by mouth two [...] Andie Brian Incisional hernia repair 03/01/2015 [facility]/ Dr. Cantu. Primary fascial closure [...] History Narrative Updated 11/09/15 She lives in [place] with her mother and her sister (also her caregiver) lives in an apa rtment/duplex below. She has 2 grandchildren (age 4 and 7) who live with her daughter and son-in-law Her boyfriend lives in [place] HFpEF, DM2, HTN, Sleep Apnea (unable to tolerate CPAP), Hypothyroidism, Severe Obesity ([facility]) Last [...] here and refer her to our physician specialist who also has expertise in physical [...] Increase torsemide to pre-surgical dose +Take acid citrix administrator for first 3 mos, then wean off [...] she will make an appointment with her Managed Care Specialist to discuss insulin dosing and CBGs [...] to POC and will call or send [facility] [place] [facility] if any issues. Start time 15:35, end time 15:55. I spent a total of 20 minutes face to face with this pat ient. Over 50% of visit was in counseling. ~ 10 minutes of additional time spent reviewing chart prior to visit and documenting after this visit. Ronna Clarke DNP ACNP ADMINISTRATIVE ASSOCIATE Bariatric Surgery Nurse Practitioner [facility] | [address] | [place], [place] | [address] | documented in this e ncounter Plan of Treatment +--------+ + + + + | Date | Type | Specialty | Care Team | Description | +--------+ + + + + | 03/22/ | Office | Cardiology | Randell Franks, | | | 2019 | Visit | | MD [address] | | | | | | [place], [place] | | | | | | [address] | | | | | | [phone] | | | | | | | | +--------+ + + + + | 04/04/ | Telephone-S | Surgery | Orquidea Cristobal, | | | 2019 | cheduled | | ADMINISTRATIVE ASSOCIATE [address] | | | | | | [facility] [place] | | | | | | [address] | | | | | | [phone] | | | | | | | [...] + | [facility] | [address] | [place] [address] | | | [place] | | | | + + + [...]
--- OUTSIDE RECORDS SUMMARY | ~2020-02-27 | XMS | Encounter Summary ---
Demographics + + + | Address | [address] | | | [place] [address] | + + + | Home Phone [...] [place], [place] | | | | | [address] | | + + + + + | Ellie Vang | ECON | Unknown | | + + + + + Care Team Providers + +------+ + | Care Generation Mechanic Helper Name | Role | Phone [...] | | | | | bypass | [place], | [facility], | | | | | Nausea and | [place] | 10th Floor | | | | | vomiting, | [address] | [place], [place] | | | | | intractabili | Phone: | [phone] | | | | | ty of | | Phone: | | | | | vomiting not | Fax: | [phone] | | | | | specified, | [phone] | Fax: | | | | | unspecified | | [phone] | | | | | vomiting | [...] | | | | | | CONTRAST MA | | | | | | | CT SCAN OF | | | | | | | ABDOMEN | | | | | | | CONTRAST MA | | | | | | [...] | | | | | bypass | [place], | [facility], | | | | | Nausea and | [place] | 10th Floor | | | | | vomiting, | [address] | [place], [place] | | | | | intractabili | Phone: | [phone] | | | | | ty of | | Phone: | | | | | vomiting not | Fax: | [phone] | | | | | specified, | [phone] | Fax: | | | | | unspecified | | [phone] | | | | | vomiting | [...] | | | | | | CONTRAST MA | | | | | | | CT SCAN OF | | | | | | | ABDOMEN | | | | | | | CONTRAST MA | | | | | | [...] | 2019 | Encounter | Services at [facility] | AGACNP [address] | | | | | [address] | [place], [place] | | | | | Lesly Gutiérrez [facility] | [address] | | | | | [address] | [phone] | | | | | [place], [place] | | | | | | [address] | | | | | | [phone] | | | +--------+ + + + [...] | | 0 | | | | CRB&UKZ-[id number]-GEN | mouth two times | | | [...] Ave | | | | | | [place], [place] | | | | | | [address] | | | | | | [phone] | | | | | | | | +--------+ + + + + | 04/04/ | Telephone-S | Surgery | Orquidea Cristobal, | | | 2019 | cheduled | | BROKE BEATER [address] | | | | | | [place], [place] | | | | | | [address] | | | | | | [phone] | | | | | | | [...]
--- OUTSIDE RECORDS SUMMARY | ~2020-02-27 | XMS | Encounter Summary ---
Demographics + + + | Address | [address] | | | [place] [address] | + + + | Home Phone [...] [place], [place] | | | | | [address] | | + + + + + | Ellie Vang | ECON | Unknown | | + + + + + Care Team Providers + +------+ + | Care Supervisor Case Loading Name | Role | Phone | + [...] [facility] [address] | ACNP [address] | | | | | [address] | Ave [place], [place] | | | | | for Health and | [address] | | | | | [facility] [address] | | | | | | [place], [place] | | | | | | [address] | | | | | | | [...] Ave | | | | | | [place], [place] | | | | | | [address] | | | | | | [phone] | | | | | | | | +--------+ + + + + | 04/04/ | Telephone-S | Surgery | Orquidea Cristobal, | | | 2019 | sherrill | | EDUCATIONAL ADVISOR [address] | | | | | | [place], [place] | | | | | | [address] | | | | | | [phone] | | | | | | | | +--------+ + + + + documented as of this encounter Visit Diagnoses Not on filedocumented in this encounter"
--- OUTSIDE RECORDS SUMMARY | ~2020-02-27 | XMS | Encounter Summary ---
Demographics + + + | Address | [address] | | | [place] [address] | + + + | Home Phone | | + + + | Preferred Language | Unknown | + + + | Marital Status | | + + + | Evangelical Affiliation | Unknown | + + + | Race | Unknown | + + + | Ethnic Group | Unknown | + + + Author + + + | Author | [facility] | | | and [place]ana | + + + | Organization | [facility] | | | [...] Team Providers + +------+ + | Care Reproductive Surgeon Name | Role | Phone | + [...] Closed | | Radiology | Diagnoses | [place], | [facility] | | | | | Deep vein | Dharmesh | Intra Op [id number] | | | | | thrombosis | MD Natan | [address] | | | | | (DVT) of | [address] | [place], [place] | | | | | left lower | [address] | [address] | | | | | extremity, | Roshan [address] | Phone: | | | | | unspecified | [place], [place] | [phone] | | | | | chronicity, | [address] | Fax: | | | | | unspecified | Phone: | [phone] | | | | | vein (HCC) | [phone] | | | | | | Procedures | Fax: | | | | | | IR Removal | [phone] | | | | | | Fibrin | | | | | | | Sheath/Clot | | | | | | | on Device | | | +--------+--------+ + + + + Reason for Visit + +--------+ + | Reason | Onset | Comments | | | Date | | + +--------+ + | Procedure | 06/14/ | | | | 2018 | | + +--------+ + Encounter Details +--------+ + + + + | Date | Type | Department | Care Team | Description | +--------+ + + + + | 06/14/ | Telephone | [facility] | Dharmesh Fierro, | Procedure | | 2019 | | INTERVENTIONAL | RN | | | | | RADIOLOGY [address] | | | | | | [address] | | | | | | [place] | | | | | | [address] | | | | | | [phone] | | | +--------+ + + + [...] Telephone Encounter - Dharmesh Fierro RN - 06/20/2019 11:01 AM PSTPt called and cancelle d procedure today d/t no ride available. Pt rescheduled to 06/22/2019 per pt's request. Elec tronically signed by Dharmesh Fierro RN at 06/20/2019 11:02 AM PSTdocumented in this encou nter Plan of Treatment [...] | | | | | [place] [id number] | | | | | | [phone] | | | | | | | | +--------+ + + + + | 03/29/ | Office | Cardiology | AdarshSulema | | | 2019 | Visit | | [address] | | | | | | [address] | | | | | | [place] [address] | | | | | | [phone] | | | | | | | [...] Note | + + | Aditya Rad Results In - 06/22/2019 5:21 PM [...]
--- OUTSIDE RECORDS SUMMARY | ~2020-02-27 | XMS | Encounter Summary ---
Demographics + + + | Address | [address] | | | [place] [address] | + + + | Home Phone [...] [place], [place] | | | | | [address] | | + + + + + | Ellie Vang | ECON | Unknown | | + + + + + Care Team Providers + +------+ + | Care General Internal Medicine Doctor Name | Role | Phone | [...] Records | | 2019 | | Center [place] [address] [address] | MD [address] | Review | | | | [facility] | [facility] | | | | | [facility] and | [place], [place] | | | | | [place] [address] | [address] | | | | | [place], [place] | [phone] | | | | | [address] | | | | | | [phone] | | | +--------+ + + + [...] Ave | | | | | | [place], [place] | | | | | | [address] | | | | | | [phone] | | | | | | | | +--------+ + + + + | 04/04/ | Telephone-S | Surgery | Orquidea Cristobal, | | | 2019 | cheduled | | STONE LATHE OPERATOR [address] | | | | | | [place], [place] | | | | | | [address] | | | | | | [phone] | | | | | | | | +--------+ + + + + documented as of this encounter Visit Diagnoses Not on filedocumented in this encounter"
--- OUTSIDE RECORDS SUMMARY | ~2020-02-27 | XMS | Encounter Summary ---
Demographics + + + | Address | [address] | | | [place] [address] | + + + | Home Phone [...] [place], [place] | | | | | [address] | | + + + + + | Ellie Vang | ECON | Unknown | | + + + + + Care Team Providers + +------+ + | Care Investor Relations Specialist Name | Role | Phone | [...] | [address] | MD Jodie,PhD [address] | | | | | [facility] | [address] | | | | | Hospital Admitting | [place], [place] | | | | | Desk Located on the | [address] | | | | | 9th floor | [phone] | | | | | [place], [place] | | | | | | [address] | Jason Balbuena | | | | | | MD Twin [address] | | | | | | [address] | | | | | | [place], [place] | | | | | | [address] | | | | | | [phone] | | | | | | | [...] [place] | | | | | | [address] | | | | | | [phone] | | | | | | | | +--------+ + + + + | 04/04/ | Telephone-S | Surgery | Orquidea Cristobal, | | | 2019 | cheduled | | PIPE PULLER [address] | | | | | | [place], [place] | | | | | | [address] | | | | | | [phone] | | | | | | | [...]
--- OUTSIDE RECORDS SUMMARY | ~2020-02-27 | XMS | Encounter Summary ---
Demographics + + + | Address | [address] | | | [place] [address] | + + + | Home Phone [...] [place], [place] | | | | | [address] | | + + + + + | Ellie Vang | ECON | Unknown | | + + + + + Care Team Providers + +------+ + | Care Dialysis Clinical Manager Name | Role | Phone | [...] + + | 03/01/ | Hospital | [facility] [address] | Ion Castanon, | | | 2018 - | Encounter | [address] | [address] | | | | | [place], [place] | [place], [place] | | | 03/03/ | | [address] | [address] | | | 2017 | | [phone] | [phone] | | | | | | | [...] AM PDT [facility] RED SURGERY INPATIENT DISCHARGE SUMMARY Author: [...] to a bariatric full liquid diets. Our [facility] dietitian was consulted and they discussed her [...] at minimum. 5. Follow with PCP for Sweet Pickled Fruit Maker within 1 - 2 weeks of discharge [...] mg by mouth two times daily. CALCIUM [id number]-GENIS ORAL Take 2 tablets by mouth two [...] or Kefir, [place] Yogurt, and Chioban i Bulgarian Yogurt are common brands with beneficial probiotics. [...] over the counter at most [facility] [employer] stores. Nausea/Vomiting/Difficulty Swallowing Nausea/Vomiting/Difficulty swallowing: Could be [...] hours per your instructions. Some medications, like [place], have Tylenol in it. Make sure you [...] hours by calling the surgery office at [phone]. - After hours, weekends and holidays, you may call the hospital bullet swaging machine operator at [phone] an d have the supervisor concrete stone finishing Red Surgery Team paged. OTHER DISCHARGE ORDERS [...] at minimum. 5. Follow with PCP for Sweet Pickled Fruit Maker within 1 - 2 weeks of discharge [...] Department Dept Phone Center 03/10/2018 1:30 PM [facility] at [facility] 6th Floor [phone] FO OD AND NUT 03/10/2018 3:05 PM [facility] at [facility] 6th Floor [phone] [facility] 04/01/2018 10:30 AM [facility] at [facility] 6th Floor [phone] FO OD AND NUT 04/01/2018 11:00 AM Ion Castanon [facility] at [facility] 6th Floor [phone] [facility] 05/27/2018 2:30 PM [facility] at [facility] 6th Floor [phone] FO OD AND NUT 05/27/2018 3:05 PM [facility] at [facility] 6th Floor [phone] [facility] 05/27/2018 4:30 PM [facility] at [facility] 15th Floor [phone] Comprehensiv 06/04/2018 10:35 AM Randell Franks Cardiology Preventive at [facility] [phone] Cardiology Discharging Physician: KAIN Agee Attending Physician: Ion Castanon MD [facility] Surgery Pager# [phone] 9:50 AM 03/03/2018 documented in this enco [...] | | 0 | | | | [id number]-GEN | mouth two times | | | [...] date of discharge 03/03/18 PARTHA Calixto MS3 [facility] [employer] Demarcus Menon [...] for care ride home (pt lives in [place]) Demarcus Alas M.D. General Surgery Resident PGY-1 Pager: [phone] Ion Ferrari MD - 10:[address] | | | | | | [place], [place] | | | | | | [address] | | | | | | [phone] | | | | | | | | +--------+ + + + + | 04/04/ | Telephone-S | Surgery | Orquidea Cristobal, | | | 2019 | cheduled | | LD TEACHER [address] | | | | | | [place], [place] | | | | | | [address] | | | | | | [phone] | | | | | | | [...] | PDT | over, adult ([facility]) | results section. | + +--------+ + + + | CAPILLARY BLOOD | Routin | 03/03/2018 | Morbid obesity | Results for this | | GLUCOSE (NO CHG), | e | 7:54 AM | with BMI of 70 and | procedure are in the | | POC | | PDT | over, adult ([facility]) | results section. | + +--------+ + + + | CAPILLARY BLOOD | Routin | 03/03/2018 | Morbid obesity | Results for this | | GLUCOSE (NO CHG), | e | 6:28 AM | with BMI of 70 and | procedure are in the | | POC | | PDT | over, adult ([facility]) | results section. | + +--------+ + + + | CAPILLARY BLOOD | Routin | 03/02/2018 | Morbid obesity | Results for this | | GLUCOSE (NO CHG), | e | 9:17 PM | with BMI of 70 and | procedure are in the | | POC | | PDT | over, adult ([facility]) | results section. | + +--------+ + + + | CAPILLARY BLOOD | Routin | 03/02/2018 | Morbid obesity | Results for this | | GLUCOSE (NO CHG), | e | 6:50 PM | with BMI of 70 and | procedure are in the | | POC | | PDT | over, adult ([facility]) | results section. | + +--------+ + + + | CAPILLARY BLOOD | Routin | 03/02/2018 | Morbid obesity | Results for this | | GLUCOSE (NO CHG), | e | 3:46 PM | with BMI of 70 and | procedure are in the | | POC | | PDT | over, adult ([facility]) | results section. | + +--------+ + + + | CAPILLARY BLOOD | Routin | 03/02/2018 | Morbid obesity | Results for this | | GLUCOSE (NO CHG), | e | 2:36 PM | with BMI of 70 and | procedure are in the | | POC | | PDT | over, adult ([facility]) | results section. | + +--------+ + + + | CAPILLARY BLOOD | Routin | 03/02/2018 | Morbid obesity | Results for this | | GLUCOSE (NO CHG), | e | 1:33 PM | with BMI of 70 and | procedure are in the | | POC | | PDT | over, adult ([facility]) | results section. | + +--------+ + + + | CAPILLARY BLOOD | Routin | 03/02/2018 | Morbid obesity | Results for this | | GLUCOSE (NO CHG), | e | 11:36 AM | with BMI of 70 and | procedure are in the | | POC | | PDT | over, adult ([facility]) | results section. | + +--------+ + + + | CAPILLARY BLOOD | Routin | 03/02/2018 | Morbid obesity | Results for this | | GLUCOSE (NO CHG), | e | 10:32 AM | with BMI of 70 and | procedure are in the | | POC | | PDT | over, adult ([facility]) | results section. | + +--------+ + + + | CAPILLARY BLOOD | Routin | 03/02/2018 | Morbid obesity | Results for this | | GLUCOSE (NO CHG), | e | 9:23 AM | with BMI of 70 and | procedure are in the | | POC | | PDT | over, adult ([facility]) | results section. | + +--------+ + + + | CAPILLARY BLOOD | Routin | 03/02/2018 | Morbid obesity | Results for this | | GLUCOSE (NO CHG), | e | 8:36 AM | with BMI of 70 and | procedure are in the | | POC | | PDT | over, adult ([facility]) | results section. | + +--------+ + + + | CAPILLARY BLOOD | Routin | 03/02/2018 | Morbid obesity | Results for this | | GLUCOSE (NO CHG), | e | 7:35 AM | with BMI of 70 and | procedure are in the | | POC | | PDT | over, adult ([facility]) | results section. | + +--------+ + + + | CAPILLARY BLOOD | Routin | 03/02/2018 | Morbid obesity | Results for this | | GLUCOSE (NO CHG), | e | 6:33 AM | with BMI of 70 and | procedure are in the | | POC | | PDT | over, adult ([facility]) | results section. | + +--------+ + + + | CAPILLARY BLOOD | Routin | 03/02/2018 | Morbid obesity | Results for this | | GLUCOSE (NO CHG), | e | 5:28 AM | with BMI of 70 and | procedure are in the | | POC | | PDT | over, adult ([facility]) | results section. | + +--------+ + + + | CAPILLARY BLOOD | Routin | 03/02/2018 | Morbid obesity | Results for this | | GLUCOSE (NO CHG), | e | 4:36 AM | with BMI of 70 and | procedure are in the | | POC | | PDT | over, adult ([facility]) | results section. | + +--------+ + + + | CAPILLARY BLOOD | Routin | 03/02/2018 | Morbid obesity | Results for this | | GLUCOSE (NO CHG), | e | 2:46 AM | with BMI of 70 and | procedure are in the | | POC | | PDT | over, adult ([facility]) | results section. | + +--------+ + + + | CAPILLARY BLOOD | Routin | 03/02/2018 | Morbid obesity | Results for this | | GLUCOSE (NO CHG), | e | 12:32 AM | with BMI of 70 and | procedure are in the | | POC | | PDT | over, adult ([facility]) | results section. | + +--------+ + + + | CAPILLARY BLOOD | Routin | 03/01/2018 | Morbid obesity | Results for this | | GLUCOSE (NO CHG), | e | 10:31 PM | with BMI of 70 and | procedure are in the | | POC | | PDT | over, adult ([facility]) | results section. | + +--------+ + + + | CAPILLARY BLOOD | Routin | 03/01/2018 | Morbid obesity | Results for this | | GLUCOSE (NO CHG), | e | 8:21 PM | with BMI of 70 and | procedure are in the | | POC | | PDT | over, adult ([facility]) | results section. | + +--------+ + [...] | PDT | over, adult ([facility]) | results section. | + +--------+ + + + | CAPILLARY BLOOD | Routin | 03/01/2018 | Morbid obesity | Results for this | | GLUCOSE (NO CHG), | e | 3:31 PM | with BMI of 70 and | procedure are in the | | POC | | PDT | over, adult ([facility]) | results section. | + +--------+ + + + | CAPILLARY BLOOD | Routin | 03/01/2018 | Morbid obesity | Results for this | | GLUCOSE (NO CHG), | e | 3:29 PM | with BMI of 70 and | procedure are in the | | POC | | PDT | over, adult ([facility]) | results section. | + +--------+ + + + | CAPILLARY BLOOD | Routin | 03/01/2018 | Morbid obesity | Results for this | | GLUCOSE (NO CHG), | e | 2:30 PM | with BMI of 70 and | procedure are in the | | POC | | PDT | over, adult ([facility]) | results section. | + +--------+ + + + | CAPILLARY BLOOD | Routin | 03/01/2018 | Morbid obesity | Results for this | | GLUCOSE (NO CHG), | e | 1:35 PM | with BMI of 70 and | procedure are in the | | POC | | PDT | over, adult ([facility]) | results section. | + +--------+ + + + | CAPILLARY BLOOD | Routin | 03/01/2018 | Morbid obesity | Results for this | | GLUCOSE (NO CHG), | e | 12:16 PM | with BMI of 70 and | procedure are in the | | POC | | PDT | over, adult ([facility]) | results section. | + +--------+ + [...] | PDT | over, adult ([facility]) | results section. | + +--------+ + + + | LAPAROSCOPIC | Electi | 03/01/2018 | Morbid obesity | | | NISH-EN-Y GASTRIC | ve | 8:31 AM | ([facility]) | | | BYPASS | Surgic | [...] MARQUAM | [address] | [place], [place] | | | [facility] | [address] | [phone] | | | TESTS | | | [...] MARPATAM | [address] | [place], [place] | | | [facility] | [address] | [phone] | | | TESTS | | | [...] AMES | [address] | [place], [place] | | | [facility] | [facility] | [address] | | | TESTS | | | [...] MARQUAM | [address] | [place], [place] | | | [facility] | [address] | [address] | | | TESTS | | | [...] KWAKU | [address] | [place], [place] | | | [facility] | [facility] | [phone] | | | TESTS | | | [...] (H) | 70 - 99 mg/dL | [facility] - | | | GLUCOSE, [...] AMES | [address] | [place], [place] | | | [facility] | [facility] | [address] | | | TESTS | | | [...] KWAKU | [address] | [place], [place] | | | [facility] | [address] | [address] | | | TESTS | | | [...] - KWAKU | [address] | [place], [place] | | | [facility] | [facility] | [address] | | | TESTS | | | [...] (H) | 70 - 99 mg/dL | [facility] - | | | GLUCOSE, [...] AMES | [address] | [place], [place] | | | [facility] | [facility] | [address] | | | TESTS | | | [...] KWAKU | [address] | [place], [place] | | | [facility] | [address] | [address] | | | TESTS | | | [...] - KWAKU | [address] | [place], [place] | | | [facility] | [facility] | [address] | | | TESTS | | | [...] (H) | 70 - 99 mg/dL | [facility] - | | | GLUCOSE, [...] AMES | [address] | [place], [place] | | | [facility] | [address] | [address] | | | TESTS | | | [...] AMES | [address] | [place], [place] | | | [facility] | [address] | [address] | | | TESTS | | | [...] KWAKU | [address] | [place], [place] | | | [facility] | [facility] | [address] | | | TESTS | | | [...] (H) | 70 - 99 mg/dL | [facility] - | | | GLUCOSE, [...] YAKOVAM | [address] | [place], [place] | | | [facility] | [address] | [address] | | | TESTS | | | [...] KWAKU | [address] | [place], [place] | | | [facility] | [facility] | [phone] | | | TESTS | | | [...] KWAKU | [address] | [place], [place] | | | [facility] | [facility] | [address] | | | TESTS | | | [...] (H) | 70 - 99 mg/dL | [facility] - | | | GLUCOSE, [...] KWAKU | [address] | [place], [place] | | | [facility] | [address] | [address] | | | TESTS | | | [...] KWAKU | [address] | [place], [place] | | | [facility] | [facility] | [phone] | | | TESTS | | | [...] KWAKU | [address] | [place], [place] | | | [facility] | [facility] | [address] | | | TESTS | | | [...] (H) | 70 - 99 mg/dL | [facility] - | | | GLUCOSE, [...] AMES | [address] | [place], [place] | | | [facility] | [address] | [address] | | | TESTS | | | [...] NKECHI - KWAKU | [address] | [place], [place] | | | [facility] | [address] | [address] | | | TESTS | | | [...] YAKOVAM | [address] | [place], [place] | | | [facility] | [facility] | [address] | | | TESTS | | | [...] (H) | 70 - 99 mg/dL | [facility] - | | | GLUCOSE, [...] AMES | [address] | [place], [place] | | | [facility] | [address] | [address] | | | TESTS | | | [...] KWAKU | [address] | [place], [place] | | | [facility] | [facility] | [phone] | | | TESTS | | | [...] + + | NKECHI AMES | [address] [facility] [address] | [place], [place] | | | [facility] | [address] | [address] | | | TESTS | | | | + + + + + EGD (ESOPHAGOGASTRODUODENOSCOPY) (03/01/2018 11:21 AM PDT) + + + | Narrative | Performed At | + + + | Ion Castanon MD 03/01/2018 12:25 PM Date of Procedure: | | | 03/01/18 Primary Surgeon: Ion Castanon MD Co Surgeon or | | | phlebotomist medical lab assistant: Eldon Gonzalez MD, Chief Resident Alexx [...] The jejunum was divided with 60 mm Hustler stapler with white | | | load [...] created in each limb and a 60mm Hustler stapler | | | with white load was fired to create a [id number] | | | jejunojejunostomy. The anastamosis was confirmed to be widely | | | patent and hemostatic. The common enterotomy was closed by placing | | | 2 stay sutures along the enterotomy for retraction and firing an | | | Hustler 60mm stapler with white load across the [...] | | | was entered. The 60mm Hustler stapler with blue load was placed | [...] blue load of the 60mm stapler. The Hustler was then fired | | | longitudinally towards the angle of His to create the gastric pouch, | | | leaving the gastrotomy from foreign body removal, on the pouch. | | | Dissection was performed retrogastric to connect posterior and | | | anterior dissection planes and ensure adequate fundus exclusion. | | | Additional fires of the Hustler stapler were performed with blue | | [...] with | | | 5 mm clip customer operations specialist. A 25mm Orvil was passed transorally by [...] was closed with 60mm | | | Hustler stapler with a white load. Medially and [...] was present | | | as my phlebotomist medical lab assistant for the entire procedure, given the technically | | | challenging nature of this procedure. She assisted in all critical | | | steps of the procedure. Dr. Gonzalez was present for endoscopy at the | | | end of the procedure. Ion Castanon MD, FACS, [facility] | | | Bariatric Surgery | [...] MD Co Surgeon or | | | phlebotomist medical lab assistant: Eldon Gonzalez MD, Chief Resident Alexx [...] The jejunum was divided with 60 mm Hustler stapler with white | | | load [...] created in each limb and a 60mm Hustler stapler | | | with white load was fired to create a [id number] | | | jejunojejunostomy. The anastamosis was confirmed to be widely | | | patent and hemostatic. The common enterotomy was closed by placing | | | 2 stay sutures along the enterotomy for retraction and firing an | | | Hustler 60mm stapler with white load across the [...] | posterior to the nish limb. A [facility] liver retractor was | | | placed [...] | | | was entered. The 60mm Hustler stapler with blue load was placed | [...] blue load of the 60mm stapler. The Hustler was then fired | | | longitudinally towards the angle of His to create the gastric pouch, | | | leaving the gastrotomy from foreign body removal, on the pouch. | | | Dissection was performed retrogastric to connect posterior and | | | anterior dissection planes and ensure adequate fundus exclusion. | | | Additional fires of the Hustler stapler were performed with blue | | [...] with | | | 5 mm clip customer operations specialist. A 25mm Orvil was passed transorally by [...] was closed with 60mm | | | Hustler stapler with a white load. Medially and [...] was present | | | as my phlebotomist medical lab assistant for the entire procedure, given the technically | | | challenging nature of this procedure. She assisted in all critical | | | steps of the procedure. Dr. Gonzalez was present for endoscopy at the | | | end of the procedure. Ion Castanon MD, FACS, [facility] | | | Bariatric Surgery | [...] NKECHI AMES | [address] | [place], [place] | | | [place] [facility] | [address] | [phone] | | | TESTS | | | [...] FLUoxetine (PROZAC) capsule 60 | Given | 08/07/20 | 60 mg | | | | [...] g, oral, NEEDED, Starting | | | Tu03/02/18 at 1556, Until Thu | | | [...] liquid 1 dose, | | | Starting 03/01/18 at 1353, | | | Until Thu03/01/18 [...]
--- OUTSIDE RECORDS SUMMARY | ~2020-02-27 | XMS | Encounter Summary ---
Demographics + + + | Address | [address] | | | [place] [address] | + + + | Home Phone [...] [place], [place] | | | | | [address] | | + + + + + | Ellie Vang | ECON | Unknown | | + + + + + Care Team Providers + +------+ + | Care Networker Name | Role | Phone | + [...] + + | 05/13/ | Emergency | [facility] Emergency | Nay Joe | | | 2019 - | | Department [address] | | | | | [address] | [address] | | | 05/14/ | | [facility] | [place], [place] | | | 2019 | | [place], [place] | [address] | | | | | [address] | [phone] | | | | | [phone] | | | +--------+ + + + [...] might be different fr om the original. [facility] Discharge Summary Green Surgery Admit Date: 05/13/2019 [...] by mouth once daily at bedtime. CALCIUM CRB&[id number]-GENIS ORAL Take 2 tablets by mouth two [...] passing gas, [facility] to be evaluated. Pain Medications: [...] the prescribed narcotic-opioid (e.g. oxycodone, hydrocodone, Vicodin, Argonia, Percoce t, Dilaudid) as needed. Opioid pain medications may cause constipation, so be sure to take a stool softener if you take an opioid pain medication. FOLLOW-UP: Follow-up with your primary care provider for pain control. Dr. Tiwari's appointment scheduler will contact you to try to find a date for surgery. Follow Up: Future Appointments Provider Department Dept Phone Center 06/27/2019 11:55 AM [facility] PHONE/RN CLIN 3 Preoperative Medicine Clinic at [place] [address] [phone] [facility] 06/30/2019 11:30 AM Aly Franks Cardiology in [facility] [place] Schedule the following appointment(s) when you get home JONES TIWARI MD. Specialty: General Surgery Why: Dr. Tiwari's appointment scheduler will call you to schedule a surgery date. Contact information [address] [place] [address] [place] [address] Kenyatta Hylton MD. Specialty: Family [...] Abdomen: Soft, appropriately tender to palpation, non-distended. Zonai-umbilical, ventral he rnia. No overlying skin changes. Well-healed laparoscopy scars from prior surgery. : Patient voiding without difficulty. Extremities: Moving all 4 extremities. Neuro: Alert and oriented. Grossly intact. Anisa Christopher MD PhD [facility] General Surgery ATTENDING PHYSICIAN STATEMENT I saw the patient and have repeated the pertinent portions of the history and physical exam . I agree with the findings, assessment and plan as documented by the resident. Johana Holloway MD Division of Gastrointestinal and General Surgery [facility] [address] [place] [address] Office: [phone] documented in this e ncounter Discharge Instructions [...] surgery date up as possible and the appointment scheduler will contact you. Elec tronically signed by [...] passing gas, [facility] to be evaluated. Pain Medications: [...] the prescribed narcotic-opioid (e.g. oxycodone, hydrocodone, Vicodin, Argonia, Percoce t, Dilaudid) as needed. Opioid pain medications may cause constipation, so be sure to take a stool softener if you take an opioid pain medication. FOLLOW-UP: Follow-up with your primary care provider for pain control. Dr. Tiwari's appointment scheduler will contact you to try to find [...] | | 0 | | | | CRB&[id number]-[id number]-GEN | mouth two times | | | [...] | | | | | | [place], [place] | | | | | | [address] | | | | | | [phone] | | | | | | | | +--------+ + + + + | 04/04/ | Telephone-S | Surgery | Orquidea Cristobal, | | | 2019 | cheduled | | JUICE SCALEMAN [address] | | | | | | [place], [place] | | | | | | [address] | | | | | | [phone] | | | | | | | [...] + + + | NKECHI AMES | [address] | [place], [place] | | | JUSTINE DAWN OF JAKY | [address] | [address] | | | TESTS | | | [...] [facility] | [address] | [place] [address] | | | SERVICES, CORE | CLARENCE [...] MDRD equation recommended by the National | [facility] | | Kidney Disease Education Program. [...] + + + + + | [facility] | [address] | [place] [address] | | | SERVICES, CORE | CLARENCE [...] + + + + + | [facility] | [address] | [place] [address] | | | SERVICES, CORE | PARK [...] 5-6 weeks | | | 850 - 71751 6-7 weeks | | | 4000 - 502143 7-12 weeks | | | 46859 - 575988 12-16 weeks | | | 84529 - 699844 16-29 | | | weeks 1400 - 43362 | | | 29-41 weeks 940 - 81938 | | | This test has not been approved for use as a tumor marker in | | | males or females. | | + + + + + + + + | Performing | Address | City/State/Zipcode | Phone Number | | Organization | | | | + + + + + | [facility] | [address] | [place] [address] | | | SERVICES, CORE | CLARENCE [...] LABORATORY | [address] | [place] [address] | | | SERVICES, CORE | CLARENCE [...] MDRD equation recommended by the National | [facility] | | Kidney Disease Education Program. [...] + + + + + | [facility] | [address] | [place] [address] | | | SERVICES, LYDIA | [address] | | | + + + + + ED INFORMATION EXCHANGE (05/13/2019 5:14 PM PDT) + + | Specimen | + + | | + + + + + | Narrative | Performed At | + + + | [facility]LECT[facility]?NOTIFICATION?05/13/2019 17:13?DYLAN ROMERO?MRN: | [facility] | | [id number] Criteria Met Has Guidelines PDMP Security | MEDICAL | | and Safety No recent Security Events currently on file ED Care | TECH[employer]OLOGIES | | Guidelines from [facility] Last Updated: 12/06/18 9:53 AM | | | Care Coordination: Receiving mental health services with | | | [facility].? Please contact [facility] for mental health concerns.? | | | Sarah/Toni Centeno: [phone]? Kishan: [phone].? | | | These are guidelines and the provider should exercise clinical | | | judgment when providing care. Care History Medical/Surgical | | | 05/11/19 12:00 AM [facility] Patient is | | | currently established with [facility]. If patient is seen in | | | the ED during business hours. Please contact CHWs at [facility] | | | Clinic. Care Recommendation: [...] care. 08/23/18 12:00 AM | | | [facility] PATIENT HAS A PCP APT TO ESTABLISH [...] SUDOGEST 30 MG TABLET 5 BERNARDO MARTIN, TABLEAU LEAD 0 | | | 2019-03-30 SUDOGEST 30 MG TABLET 30 BERNARDO MARTIN, TABLEAU LEAD 0 | | | 2019-03-20 ALPRAZOLAM 1 MG TABLET 60 WINSTON JEFFAS 4 0 2019-03-14 | | | BELBUCA 600 MCG FILM 58 JEFFREY ORR 0 2019 PHENTERMINE | | | 37.5 MG TABLET 90 ALY FRANKS MD 4 0 2019-02-21 ALPRAZOLAM 1 | | | MG TABLET 60 [place] JEFFLIANG 4 0 2019-02-11 BELBUCA 600 MCG FILM 56 | | | SUNNY COLINDRES MPAS 0 2019-01-31 PHENTERMINE 37.5 MG TABLET 30 | | | ALY FRANKS MD 4 0 2019-01-20 ALPRAZOLAM 1 MG TABLET 60 [place]ON | | | JEFFAS 4 0 2019-01-14 BELBUCA 600 MCG FILM 56 BETZYJEFFREY KOCH-C | | | 0 2019-01-05 BELBUCA 450 MCG FILM 48 BETZYCECILIO BALDWIN PA-C 0 | | | 2019-01-02 PHENTERMINE 37.5 MG TABLET 30 ALY FRANKS MD 4 0 | | | 2018-12-24 BELBUCA 450 MCG FILM 24 BETZYCECILIO BALDWIN PA-C 0 | | | 2018-12-03 PHENTERMINE 37.5 MG TABLET 30 ALY FRANKS MD 4 0 | | | 2018-11-26 BELBUCA 450 MCG FILM 56 BETZY BALDWIN PA-C 0 | | | 2018-11-24 BELBUCA 300 MCG FILM 16 BETZY BLADWIN PA-C 0 Showing | | | 20 [...] | [facility] 1 [facility] 1 | | | [facility] 2 Total 4 Note: Visits indicate total | | | known visits. Recent Emergency Department Visit Summary Date | | | Facility City State Type Diagnoses or Chief Complaint May 13, 2019 | | | [facility] [place] Emergency | | | 10,800. A303 May 10, 2019 [facility] [place] | | | Emergency Nausea with vomiting, unspecified Solitary | | | pulmonary nodule Anxiety disorder, unspecified Ventral | | | hernia without obstruction or gangrene Unspecified abdominal | | | pain Diarrhea, unspecified Allergy status to oth | | | drug/meds/biol subst status Prsnl hx of TIA (TIA), and cereb | | | infrc w/o resid deficits Other termite exterminator (current) drug therapy | | | Allergy status to penicillin December 03, 2018 [facility] | | | [facility] [place] Emergency RIGHT LEG PAIN DUE TO FALL | | | Strain of unsp musc/tend at lower leg level, right leg, init Jul | | | 2018 [facility] [place] Emergency Other termite exterminator | | | (current) drug therapy Upper abdominal pain, unspecified | | | Bariatric surgery status Allergy status to oth drug/meds/biol | | | subst status Noninfective gastroenteritis and colitis, | | | unspecified Obesity, unspecified Anxiety disorder, | | | unspecified intermediate manager (current) use of aspirin Allergy | | | status to penicillin Personal history of pulmonary embolism | | | Recent Inpatient Visit Summary No recorded inpatient visits. | | | Care Team Provider Specialty Phone Fax Service Dates Treva, | | | Rob Chocolate Coater/Client Account Representative Mar 27, 2018 - | | | Current Bernard Hylton MD Internal Medicine: Pulmonary Disease | | | Aug 23, 2018 - Current [email or web address] Portal This patient has | | | registered at the [facility] | | | Department For more information visit: | | | [email or web address] | | | [email or web address] PLEASE NOTE: 1. Any care recommendations [...] or completeness of information provided. ? 2019 [employer] | | | VIEO - [employer] | | + + + + + | Procedure Note | + + | Service Account, Rtf Results Inbound - 05/13/2019 5:16 PM PDT Formatting of this | | note might be different from the original.COLLECTIVE?NOTIFICATION?05/13/2019 | | 17:13?DYLAN ROMERO? Met Has Guidelines PDMPSecurity and | | SafetyNo recent Security Events currently on fileED Care Guidelines from [facility] - | | [place] Updated: 12/06/18 9:53 AM Care Coordination:Receiving mental health | | services with [facility].? Please contact [facility] for mental health concerns.? | | Sarah/Toni Centeno: [phone]? Kishan: [phone].?These are guidelines | | and the provider should exercise clinical judgment when providing care.Care | | HistoryMedical/Bhrumgji04/16/19 12:00 AM [facility] Patient is currently | | established with [facility]. If patient is seen in the ED during business hours. | | Please contact CHWs at [facility].Care Recommendation:This patient has had 5 or [...] judgment when providing care.08/23/18 12:[address] [facility] | | Hospital PATIENT HAS A PCP [...] SUDOGEST 30 MG TABLET 30 | | BERNARDODAHLIA MARTIN, TABLEAU LEAD 0 2019-03-20 ALPRAZOLAM 1 MG TABLET 60 WINST[place] JOSE 4 0 2019-03-14 | | BELBUCA 600 MCG FILM 58 KECIA ZAPIEN PA 0 2019 PHENTERMINE 37.5 MG TABLET 90 | | ALY FRANKS MD 4 0 2019-02-21 ALPRAZOLAM 1 MG TABLET 60 [place] JOSE 4 0 2019-02-11 | | BELBUCA 600 MCG FILM 56 [facility] 0 2019-01-31 PHENTERMINE 37.5 MG TABLET | [...] 0 E.D. Visit Count (12 mo.)Facility Visits [facility] | | Health 1 [facility] 1 [facility] 2 Total 4 Note: | | Visits indicate total known visits. Recent Emergency Department Visit SummaryDate | | Facility City State Type Diagnoses or Chief Complaint May 13, 2019 [facility] and | | [facility] [place] Emergency 10,800. A303 May 10, 2019 [facility] | | [place] Emergency Nausea with vomiting, unspecified Solitary pulmonary nodule | | Anxiety disorder, unspecified Ventral hernia without obstruction or gangrene | | Unspecified abdominal pain Diarrhea, unspecified Allergy status to oth | | drug/meds/biol subst status Prsnl hx of TIA (TIA), and cereb infrc w/o resid deficits | | Other usp (current) drug therapy Allergy status to penicillin December 03, 2018 | | [facility] [place] Emergency RIGHT LEG PAIN DUE TO FALL Strain of | | unsp musc/tend at lower leg level, right leg, init Aug 22, 2018 [facility] | | [place] Emergency Other termite exterminator (current) drug therapy Upper abdominal pain, | | unspecified Bariatric surgery status Allergy status to oth drug/meds/biol subst | | status Noninfective gastroenteritis and colitis, unspecified Obesity, unspecified | | Anxiety disorder, unspecified assisted (current) use of aspirin Allergy status | | to penicillin Personal history of pulmonary embolism Recent Inpatient Visit | | SummaryNo recorded inpatient visits. Care TeamProvider Specialty Phone Fax Service Dates | | Rob Tilley Chocolate Coater/Client Account Representative Mar 27, 2018 - Current | | Bernard Hylton MD Internal Medicine: Pulmonary Disease Aug 23, 2018 - Current | | [email or web address] AgencyThi patient has registered at the [facility] | | Emergency Department For more information visit: | | [email or web address] PLEASE | | NOTE: 1. Any care [...] completeness of information | | provided.? 2019 [employer]. - [email or web address] | |Unique Pharmacies 3 | |Benzos 4 | |Opioids 7 | |Long Acting Opioids 0 | | | | | | | |E.D. Visit Count (12 mo.) | |Facility Visits | |[facility] 1 | |[facility] 1 | |[facility] 2 | |Total 4 | |Note: Visits indicate total known visits. | | | |Recent Emergency Department Visit Summary | |Date Facility City State Type Diagnoses or Chief Complaint | |May 13, 2019 [facility] [place] Emergency | | 10,800. A303 | | | |May 10, 2019 [facility] [place] Emergency | | [...] w/o resid deficits | | Other termite exterminator (current) drug therapy | | Allergy status to penicillin | | | |December 03, 2018 [facility] [place] Emergency | | RIGHT LEG PAIN DUE TO FALL | | Strain of unsp musc/tend at lower leg level, right leg, init | | | |Aug 22, 2018 [facility]. [place] Emergency | | Other usp (current) drug therapy | | Upper abdominal pain, unspecified | | Bariatric surgery status | | Allergy status to oth drug/meds/biol subst status | | Noninfective gastroenteritis and colitis, unspecified | | Obesity, unspecified | | Anxiety disorder, unspecified | | assisted (current) use of aspirin | | Allergy status to penicillin | | Personal history of pulmonary embolism | | | | | | | |Recent Inpatient Visit Summary | |No recorded inpatient visits. | | | |Care Team | |Provider Specialty Phone Fax Service Dates | |Rob Tilley Chocolate Coater/Client Account Representative Mar 27, 2018 - Current | |Bernard Hylton MD Internal Medicine: Pulmonary Disease Aug 23, 2018 - Current | | | |[email or web address] Portal | |This patient has registered at the [facility] Emergency Departmen t | |For more information visit: [email or web address] | |PLEASE NOTE: | | 1. Any [...] information provided. | | | |? 2019 [employer]. - [email or web address] | + + + + + + + | Performing | Address | City/State/Zipcode | Phone Number | | Organization | | | | + + + + + | [facility] | [address] | [place], [place] | [phone] | | TECHNOLOGIES | [address] | [address] | | + + + [...] | | | | ONCE, 1 dose, [facility] 05/13/19 at | | PM PDT [...]
--- OUTSIDE RECORDS SUMMARY | ~2020-02-27 | XMS | Encounter Summary ---
Demographics + + + | Address | [address] | | | [place] [address] | + + + | Home Phone [...] Team Providers + +------+ + | Care Diffusion Operator Name | Role | Phone | [...] Ave | | | | | | [place], [place] | | | | | | [address] | | | | | | [phone] | | | | | | | | +--------+ + + + + | 04/04/ | Telephone-S | Surgery | Orquidea Cristobal, | | | 2019 | cheduled | | ORACLE PROGRAMMER ANALYST [address] | | | | | | [place], [place] | | | | | | [address] | | | | | | [phone] | | | | | | | | +--------+ + + + + documented as of this encounter Visit Diagnoses Not on filedocumented in this encounter"
--- OUTSIDE RECORDS SUMMARY | ~2020-02-27 | XMS | Encounter Summary ---
Demographics + + + | Address | [address] | | | [place] [address] | + + + | Home Phone [...] [place], [place] | | | | | [address] | | + + + + + | Ellie Vang | ECON | Unknown | | + + + + + Care Team Providers + +------+ + | Care Power Grader Operator Name | Role | Phone | [...] | | | | | | | [place] [facility] | | | | | | | Health and | | | | | | | Healing, | | | | | | | Building [address] | | | | | | | [place], [place] | | | | | | | [address] | | | | | | | Phone: | | | | | | | [phone] | | | | | | | Fax: | | | | | | | [phone] | +--------+--------+ + + + + Encounter Details +--------+---------+ + + + | Date | Type | Department | Care Team | Description | +--------+---------+ + + + | 08/28/ | Office | Digestive Health | [address] | Morbid obesity (HCC) | | 2015 | Visit | Center at [facility] [address] | [address] | (Primary Dx); Type | | | | [address] | [address] [facility], | 2 diabetes mellitus | | | | for Health and | [place] [address] | (HCC) | | | | [facility] 2 | [phone] | | | | | [place], [place] | | | | | | [address] | | | | | | [phone] | | | +--------+---------+ + + + [...] of Visit: 12:29 to 12:57 (28 minutes gxhh-cl-hdof with patient) SUBJECTIVE: Trying to follow a [...] post-surgery diet progression. 4. Call or send Buy[employer]On[employer]Socialt message to dietitian with any questions. Contact information was provided. Follow up with dietitian prior to surgery to review post-surgical recommendations. Yuli Childs RD, CNSC, LD Pager# [phone] documented in this enco unter Plan of Treatment +--------+ + + + + | Date | Type | Specialty | Care Team | Description | +--------+ + + + + | 03/22/ | Office | Cardiology | Randell Franks, | | | 2019 | Visit | | MD [address] | | | | | | [place], [place] | | | | | | [address] | | | | | | [phone] | | | | | | | | +--------+ + + + + | 04/04/ | Telephone-S | Surgery | Orquidea Cristobal, | | | 2019 | cheduhipolito | | DIRECTOR TITLE [address] | | | | | | [place], [place] | | | | | | [address] | | | | | | [phone] | | | | | | | | +--------+ + + + + documented as of this encounter Procedures + +--------+ + + + | Procedure Name | Priori | Date/Time | Associated Diagnosis | Comments | | | ty | | | | + +--------+ + + + | ID MNT RE-ASSESSMNT | Routin | 08/28/2014 | [...]
--- OUTSIDE RECORDS SUMMARY | ~2020-02-27 | XMS | Encounter Summary ---
Demographics + + + | Address | [address] | | | [place] [address] | + + + | Home Phone [...] [place], [place] | | | | | [address] | | + + + + + | Ellie Vang | ECON | Unknown | | + + + + + Care Team Providers + +------+ + | Care Package Dyeing Machine Operator Name | Role | Phone | + +------+ + | Fadi Goodrich DO | PCP | | + +------+ + Encounter Details +--------+ + + + + | Date | Type | Department | Care Team | Description | +--------+ + + + + | 10/19/ | Abstract | Digestive Health | Clinic, Surgery | | | 2017 | | [facility] at [facility] [address] | | | | | | [facility] | | | | | | for Health and | | | | | | [facility] 2 | | | | | | [place], [place] | | | | | | [address] | | | | | | [phone] | | | +--------+ + + + [...] Ave | | | | | | [place], [place] | | | | | | [address] | | | | | | [phone] | | | | | | | | +--------+ + + + + | 04/04/ | Telephone-S | Surgery | Orquidea Cristobal, | | | 2019 | cheduled | | CERTIFIED PROFESSIONAL MIDWIFE [address] | | | | | | [facility] [place] [place] | | | | | | [address] | | | | | | [phone] | | | | | | | | +--------+ + + + + documented as of this encounter Visit Diagnoses Not on filedocumented in this encounter"
--- OUTSIDE RECORDS SUMMARY | ~2020-02-27 | XMS | Encounter Summary ---
Demographics + + + | Address | [address] | | | [place] [address] | + + + | Home Phone [...] [place], [place] | | | | | [address] | | + + + + + | Ellie Vang | ECON | Unknown | | + + + + + Care Team Providers + +------+ + | Care Electrical Equipment Assembler Name | Role | Phone | [...] [facility] | | | | | [facility] | [place], [place] | | | | | and Healing, | [address] | | | | | [place] [address] [facility] | [phone] | | | | | Floor [place], [place] | | | | | | [address] | | | | | | [phone] | | | +--------+ + + + [...] | | | [place], [place] | | | | | | [address] | | | | | | [phone] | | | | | | | | +--------+ + + + + | 04/04/ | Telephone-S | Surgery | Orquidea Cristobal, | | | 2019 | cheduled | | BIODIESEL ENGINEERING MANAGER [address] | | | | | | [place], [place] | | | | | | [address] | | | | | | [phone] | | | | | | | | +--------+ + + + + documented as of this encounter Visit Diagnoses Not on filedocumented in this encounter"
--- OUTSIDE RECORDS SUMMARY | ~2020-02-27 | XMS | Encounter Summary ---
Demographics + + + | Address | [address] | | | [place] [address] | + + + | Home Phone [...] [place], [place] | | | | | [address] | | + + + + + | Ellie Vang | ECON | Unknown | | + + + + + Care Team Providers + +------+ + | Care Ceramic Tile Setter Name | Role | Phone | [...] | Visit | Center at [facility] [address] | [address] [facility] | obesity ([facility]), BMI | | | | [address] [facility] | [facility] [address] | 88 (Primary Dx); | | | | for [employer] and | [place], [place] | Type 2 diabetes | | | | Healing, [facility] 2 | [address] | mellitus without | | | | [facility] [place] | [phone] | complication, with | | | | [address] | | long-term current | | | | [phone] | | use of insulin | | | | | | ([facility]); S/P gastric | | | | | [...] + documented as of this encounter Progress Dione Johnson RD - 03/10/2018 1:30 PM PDTFormatting of this note might be different fro m the original. Nutrition Counseling: Post-op Bariatric Surgery Follow-Up Patient referred by: Fadi Goodrich, [address] [facility] [place] [address] Documented time of visit: 1:30 to 2:00 (30 minutes dvnx-jg-ettp with patient) Surgery: Gastric Bypass Date of [...] multivitamin & mineral (with iron) supplement, 2/day -3534-4880 mg calcium citrate with vitamin D/day (take [...] in [address],[place] Pager# [phone] Phone: [phone] documented in this en counter Plan of Treatment +--------+ + + + + | Date | Type | Specialty | Care Team | Description | +--------+ + + + + | 03/22/ | Office | Cardiology | Randell Franks, | | | 2019 | Visit | | [address] | | | | | | [place], [place] | | | | | | [address] | | | | | | [phone] | | | | | | | | +--------+ + + + + | 04/04/ | Telephone-S | Surgery | Orquidea Cristobal, | | | 2020 | sherrill | | TECHNOLOGY INTERN [address] | | | | | | [place], [place] | | | | | | [address] | | | | | | [phone] | | | | | | | | +--------+ + + + + documented as of this encounter Procedures + +--------+ + + + | Procedure Name | Priori | Date/Time | Associated Diagnosis | Comments | | | ty | | | | + +--------+ + + + | ME MNT RE-ASSESSMNT | Routin | 03/10/2018 | [...]
--- OUTSIDE RECORDS SUMMARY | ~2020-02-27 | XMS | Encounter Summary ---
Demographics + + + | Address | [address] | | | [place] [address] | + + + | Home Phone [...] [place], [place] | | | | | [address] | | + + + + + | Ellie Vang | ECON | Unknown | | + + + + + Care Team Providers + +------+ + | Care Seal Skinner Name | Role | Phone | [...] | 2018 | Visit | Center at [facility] [address] | [address] [facility] | obesity ([facility]), BMI | | | | [facility] | [facility] [address] | 88 (Primary Dx); | | | | for [employer] and | [place], [place] | Type 2 diabetes | | | | [facility] | [address] | mellitus without | | | | [facility] [place] | [phone] | complication, with | | | | [address] | | long-term current | | | | [phone] | | use of insulin | | | | | | ([facility]); S/P gastric | | | | | [...] Fadi Goodrich, [address] [place] [address] Documented time of visit: 1:30 to 2:00 (30 minutes jlau-gc-kucm with patient) Surgery: Gastric Bypass Date of [...] multivitamin & mineral (with iron) supplement, 2/day -9391-0599 mg calcium citrate with vitamin D/day (take [...] in [address],LD Pager# [phone] Phone: [phone] documented in this en counter Plan of Treatment +--------+ + + + + | Date | Type | Specialty | Care Team | Description | +--------+ + + + + | 03/22/ | Office | Cardiology | Randell Franks, | | | 2019 | Visit | | [address] | | | | | | [place], [place] | | | | | | [address] | | | | | | [phone] | | | | | | | | +--------+ + + + + | 04/04/ | Telephone-S | Surgery | Orquidea Cristobla, | | | 2020 | sherrill | | CORPORATE FINANCIAL ANALYST [address] | | | | | | [place], [place] | | | | | | [address] | | | | | | [phone] | | | | | | | | +--------+ + + + + documented as of this encounter Procedures + +--------+ + + + | Procedure Name | Priori | Date/Time | Associated Diagnosis | Comments | | | ty | | | | + +--------+ + + + | KS MNT RE-ASSESSMNT | Routin | 03/10/2018 | [...]
--- OUTSIDE RECORDS SUMMARY | ~2020-02-27 | XMS | Encounter Summary ---
Demographics + + + | Address | [address] | | | [place] [address] | + + + | Home Phone [...] [place], [place] | | | | | [address] | | + + + + + | Ellie Vang | ECON | Unknown | | + + + + + Care Team Providers + +------+ + | Care Head Up Operator Helper Name | Role | Phone | + +------+ + | Fadi Goodrich DO | PCP | | + +------+ + Encounter Details +--------+ + + + + | Date | Type | Department | Care Team | Description | +--------+ + + + + | 12/05/ | Abstract | Cardiology | Randell Franks, | | | 2016 | | Preventive at [facility] | MD [address] | | | | | [address] | [place], [place] | | | | | [facility] | [address] | | | | | and [place], | [phone] | | | | | [address] | | | | | | [facility] [place] | | | | | | [address] | | | | | | [phone] | | | +--------+ + + + [...] Ave | | | | | | [place], [place] | | | | | | [address] | | | | | | [phone] | | | | | | | | +--------+ + + + + | 04/04/ | Telephone-S | Surgery | Orquidea Cristobal, | | | 2019 | cheduled | | WET PLANT OPERATOR [address] | | | | | | [place], [place] | | | | | | [address] | | | | | | [phone] | | | | | | | | +--------+ + + + + documented as of this encounter Visit Diagnoses Not on filedocumented in this encounter"
--- OUTSIDE RECORDS SUMMARY | ~2020-02-27 | XMS | Encounter Summary ---
Demographics + + + | Address | [address] | | | [place] [address] | + + + | Home Phone [...] [place], [place] | | | | | [address] | | + + + + + | Ellie Vang | ECON | Unknown | | + + + + + Care Team Providers + +------+ + | Care Rn New Graduate Name | Role | Phone | + [...] | | | | | | [place], [place] | | | | | | [address] | | | | | | [phone] | | | +--------+ + + + [...] Ave | | | | | | [place], [place] | | | | | | [address] | | | | | | [phone] | | | | | | | | +--------+ + + + + | 04/04/ | Telephone-S | Surgery | Orquidea Cristobal, | | | 2019 | sherrill | | MALTED MILK SUPERVISOR [address] | | | | | | [place], [place] | | | | | | [address] | | | | | | [phone] | | | | | | | | +--------+ + + + + documented as of this encounter Visit Diagnoses Not on filedocumented in this encounter"
--- OUTSIDE RECORDS SUMMARY | ~2020-02-27 | XMS | Encounter Summary ---
Demographics + + + | Address | [address] | | | [place] [address] | + + + | Home Phone [...] [place], [place] | | | | | [address] | | + + + + + | Ellie Vang | ECON | Unknown | | + + + + + Care Team Providers + +------+ + | Care Rotary Rock Drilling Machine Operator Name | Role | Phone [...] Diabetes & | Morbid | Kathy Feliciano, FRAME CARVER SPINDLE | [address] | | | | Metabolism | obesity | [address] | Pavilion | | | | | (HCC) | [address], | Loop | | | | | Procedures | [address] | Physician's | | | | | CONSULT TO | [place], [place] | Pavilion | | | | | ENDO | [address] | Physician's | | | | | [address] | Phone: | Pavilion | | | | | [address] | [phone] | [place], [place] | | | | | | Fax: | [address] | | | | | | [phone] | Phone: | | | | | | | [phone] | | | | | | | Fax: | | | | | | | [phone] | +--------+--------+ + + + + Encounter Details +--------+ + + + + | Date | Type | Department | Care Team | Description | +--------+ + + + + | 11/15/ | Documentati | Digestive Health | Conser, Kathy M, | | | 2013 | on | Center at [facility] [address] | FRAME CARVER SPINDLE [address] | | | | | [address] [facility] | [facility] [address] | | | | | for Health and | [place], [place] | | | | | [facility] 2 | [address] | | | | | [place], [place] | [phone] | | | | | [address] | | | | | | [phone] | | | +--------+ + + + [...] Delia | | | | | | [place], [place] | | | | | | [address] | | | | | | [phone] | | | | | | | | +--------+ + + + + | 04/04/ | Telephone-S | Surgery | Orquidea Cristobal, | | | 2019 | sherrill | | EXECUTIVE COMMUNICATIONS MANAGER [address] | | | | | | [place], [place] | | | | | | [address] | | | | | | [phone] | | | | | | | | +--------+ + + + + documented as of this encounter Visit Diagnoses + + | Diagnosis | + + | Morbid obesity (HCC) - Primary Morbid obesity | + + documented in this encounter"
--- OUTSIDE RECORDS SUMMARY | ~2020-02-27 | XMS | Encounter Summary ---
Demographics + + + | Address | [address] | | | [place] [address] | + + + | Home Phone [...] Providers + +------+ + | Care Landscape Crew Leader Name | Role | Phone | + +------+ + | Jorje Hill | PCP | | + +------+ + Encounter Details +--------+ + + + + | Date | Type | Department | Care Team | Description | +--------+ + + + + | 01/04/ | Virtual | [facility] | Augustine Fu MD | Hypokalemia (Primary | | 2020 | Office | NEPHROLOGY [place] | [address] [place] | Dx); Bilateral leg | | | Visit | [address] [place] | [address] [place], [place] | edema; Class 3 | | | | [address] [place], [place] | [address] | obesity 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 [facility] [place] [facility] [place] [facility] [place]. documented in this [...] lives at home with her mother in [place]. She says that she feels 'good ' [...] nightly., Disp: 30 tablet, Rf l: 11 Tluofvl-Aizhmmhpq-Dpnghdf D (CITRACAL CALCIUM+D PO), Take 4 tablets [...] tablets qhs, Disp : , Rfl: rizatriptan (MAXALT-SPLICER OPERATOR) 5 mg disintegrating tablet, Take 5 mg by mouth as needed for Migraine. May repeat in 2 hours if needed, Disp: , Rfl: spironolactone (ALDACTONE) 50 mg tablet, Take 50 mg by mouth Daily., Disp: , Rfl: thyroid (INDUSTRIAL TRACTOR DRIVER THYROID) 30 mg tablet, INDUSTRIAL TRACTOR DRIVER Thyroid 30 mg tablet TAKE ONE [...] unable to assess segmental wa ll motion, Roxie visually estimates LVEF >70%. RV grossly NML. [...] office regularly. [facility] [place] [facility] [place]. I spent 15 [...] through the use of telemedicine. Telemedicine enables [facility] care providers at different locations to [...] D | | | | | | [place] [address] | | | | | | [phone] | | | | | | | | +--------+ + + + + | 03/29/ | Office | Cardiology | Sulema Altamirano | | | 2020 | Visit | | [address] | | | | | | [address] | | | | | | [place] [address] | | | | | | [phone] | | | | | | | [...]
--- OUTSIDE RECORDS SUMMARY | ~2020-02-27 | XMS | Encounter Summary ---
Demographics + + + | Address | [address] | | | [place] [address] | + + + | Home Phone [...] [place], [place] | | | | | [address] | | + + + + + | Ellie Vang | ECON | Unknown | | + + + + + Care Team Providers + +------+ + | Care Service Loss Control Consultant Name | Role | Phone | [...] [id number] | | | | | | [facility] | | | | | | [place], [place] | | | | | | [address] | | | | | | [phone] | | | +--------+ + + + [...] | | | | | | [place], [place] | | | | | | [address] | | | | | | [phone] | | | | | | | | +--------+ + + + + | 04/04/ | Telephone-S | Surgery | Orquidea Cristobal, | | | 2019 | cheduled | | GREASE WORKER [address] | | | | | | [facility] [place] | | | | | | [address] | | | | | | [phone] | | | | | | | | +--------+ + + + + documented as of this encounter Visit Diagnoses Not on filedocumented in this encounter"
--- OUTSIDE RECORDS SUMMARY | ~2020-02-27 | XMS | Encounter Summary ---
Demographics + + + | Address | [address] | | | [place] [address] | + + + | Home Phone [...] [place], [place] | | | | | [address] | | + + + + + | Ellie Vang | ECON | Unknown | | + + + + + Care Team Providers + +------+ + | Care Compilation Clerk Name | Role | Phone | [...] | HA Roldan | | | with POLICE ACADEMY INSTRUCTOR | | hypertension | [address] | | | | | Right | [address] | [place] | | | | | heart | [place], [place] | [place], | | | | | failure | [address] | [place] | | | | | ([facility]) Type | Phone: | [address] | | | | | 2 diabetes | [phone] | Phone: | | | | | mellitus | Fax: | [phone] | | | | | without | [phone] | Fax: | | | | | complication | | [phone] | | | | | , with [...] | 2018 | Visit | Center at [facility] [address] | [address] [facility] | gastric bypass | | | | [facility] | [address] | (Primary Dx); | | | | for SPO and | [place], [place] | 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[facility], [facility] 2 | [address] | 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[place], [place]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) | | | | [address] | | | | | | [phone] | | | +--------+---------+ + + + [...] Follow-Up Patient referred by: Randell Franks MD [address] [place] [address] Documented time of visit: 2:36pm to 2:49 (13 minutes msac-ue-wzyz with patient) Surgery: Gastric Bypass Date of [...] Medications since surgery: oral - appt with shovel oiler on the Testing blood glucose: 92 mg/dl [...] beef, cream of wheat, cream of mushroom, ugandan yogurt Fluid choices: water Supplementation: Flinstones, iron, [...] multivitamin & mineral (with iron) supplement, 2/day -7946-5180 mg calcium citrate with vitamin D/day (take in divided doses, not within 2 hour s of multivitamin or iron supplement) -500 mcg/day sublingual B12 supplement (or monthly injections) Continued to reinforce importance of mindful eating. Continue to increase physical activity. Follow up in 3 months or earlier as needed. Tejas Cevallos RD, LD Pager # [phone] signed by Tejas Cevallos RD at 05/27/2018 [...] [address] | | | | | | [place], [place] | | | | | | [address] | | | | | | [phone] | | | | | | | | +--------+ + + + + | 04/04/ | Telephone-S | Surgery | Orquidea Cristobal, | | | 2019 | cheduled | | TRAFFIC INCIDENT MANAGEMENT MANAGER [address] | | | | | | [place], [place] | | | | | | [address] | | | | | | [phone] | | | | | | | [...]
--- OUTSIDE RECORDS SUMMARY | ~2020-02-27 | XMS | Encounter Summary ---
Demographics + + + | Address | [address] | | | [place] [address] | + + + | Home Phone [...] [place], [place] | | | | | [address] | | + + + + + | Ellie Vang | ECON | Unknown | | + + + + + Care Team Providers + +------+ + | Care Nurse Manager Name | Role | Phone | + +------+ + | Fadi Goodrich DO | PCP | | + +------+ + Encounter Details +--------+ + + + + | Date | Type | Department | Care Team | Description | +--------+ + + + + | 10/04/ | Abstract | Digestive Health | Hernandez Brian, | | | 2012 | | [place] [address] [address] | [address] [facility] | | | | | [facility] | [facility] | | | | | for Health and | [place], [place] | | | | | [facility] 2 | [address] | | | | | [place], [place] | [phone] | | | | | [address] | | | | | | [phone] | | | +--------+ + + + [...] Ave | | | | | | [place], [place] | | | | | | [address] | | | | | | [phone] | | | | | | | | +--------+ + + + + | 04/04/ | Telephone-S | Surgery | Orquidea Cristobal, | | | 2019 | cheduled | | HOSE TENDER [address] | | | | | | [place], [place] | | | | | | [address] | | | | | | [phone] | | | | | | | | +--------+ + + + + documented as of this encounter Visit Diagnoses Not on filedocumented in this encounter"
--- OUTSIDE RECORDS SUMMARY | ~2020-02-27 | XMS | Encounter Summary ---
Demographics + + + | Address | [address] | | | [place] [address] | + + + | Home Phone [...] [place], [place] | | | | | [address] | | + + + + + | Ellie Vang | ECON | Unknown | | + + + + + Care Team Providers + +------+ + | Care Tire Center Manager Name | Role | Phone [...] | 2018 | Visit | Preventive at [facility] | [address] | mellitus without | | | | [address] | [place], [place] | complication, with | | | | [facility] | [address] | long-term current | | | | and Healing, | [phone] | use of insulin (HCC) | | | | [address] | | (Primary Dx); | | | | [place], [place] | | Chronic right-sided | | | | [address] | | heart failure (HCC) | | | | [phone] | | | +--------+---------+ + + + [...] management of her heart failure by her Airplane Pilot Helper 3) Check A1c, lipids 4) Await bariatric surgery in February 2018 5) Continue phentermine 37.5 mg daily 6) Continue wound care, non-pressure ambulation of right foot wound 7) Follow-up 4-6 months In the interim, the patient underwent bariatric surgery and was discharged from the [facility] on 03/03/2018. Today, the patient [...] 06/23 - She is working with the model and mold maker plaster in her office - She is taking [...] tongue once daily., Disp: , Rfl: CALCIUM [id number]-D8-KOH98-GENIS ORAL, Take 2 tablets by mouth two [...] 3.19 11/28/2016 Lab Results Component Value Date [id number] 88.6 05/27/2018 Lab Results Component Value Date [...] weight of 320lbs. Plan to work with model and mold maker plaster from bariatric surgery, identify etio logy of [...] is currently being managed well by her Airplane Pilot Helper with diuretics and mainte nance of [...] Gissell Clements MD Fellow, Cardiovascular Medicine Pager [phone] signed by Gissell Clements MD at 06/04/2018 [...] Ave | | | | | | [place], [place] | | | | | | [address] | | | | | | [phone] | | | | | | | | +--------+ + + + + | 04/04/ | Telephone-S | Surgery | Orquidea Cristobal, | | | 2019 | cheduled | | CONSTRUCTION SUPERVISOR [address] | | | | | | [place], [place] | | | | | | [address] | | | | | | [phone] | | | | | | | [...]
--- OUTSIDE RECORDS SUMMARY | ~2020-02-27 | XMS | Encounter Summary ---
Demographics + + + | Address | [address] | | | [place] [address] | + + + | Home Phone [...] + | Katalina Padilla | ECON | [address] | | | | | [place], [place] | | | | | [address] | | + + + + + | Ellie Vang | ECON | Unknown | | + + + + + Care Team Providers + +------+ + | Care Manganese Breaker Name | Role | Phone | [...] | 2016 | on | Center at [place] [id number] | | | | | | [address] [facility] | | | | | | for Health and | | | | | | [facility], Building [address] | | | | | | [place], [place] | | | | | | [address] | | | | | | [phone] | | | +--------+ + + + [...] Ave | | | | | | [place], [place] | | | | | | [address] | | | | | | [phone] | | | | | | | | +--------+ + + + + | 04/04/ | Telephone-S | Surgery | Orquidea Cristobal, | | | 2019 | cheduled | | BOX TURNER [address] | | | | | | [place], [place] | | | | | | [address] | | | | | | [phone] | | | | | | | | +--------+ + + + + documented as of this encounter Visit Diagnoses Not on filedocumented in this encounter"
--- OUTSIDE RECORDS SUMMARY | ~2020-02-27 | XMS | Encounter Summary ---
Demographics + + + | Address | [address] | | | [place] [address] | + + + | Home Phone [...] [place], [place] | | | | | [address] | | + + + + + [...] Diabetes & | Morbid | Kathy M, WAX PATTERN REPAIRER | [address] | | | | Metabolism | obesity | [address] | Pavilion | | | | | (HCC) | [address], | Loop | | | | | Procedures | [address] | Physician's | | | | | CONSULT TO | [facility] [place] | Pavilion | | | | | ENDO | [address] | Physician's | | | | | [address] | Phone: | Pavilion | | | | | [address] | [phone] | [place], [place] | | | | | | Fax: | [address] | | | | | | [phone] | Phone: | | | | | | | [phone] | | | | | | | Fax: | | | | | | | [phone] | +--------+--------+ + + + + Encounter [...] | | | Center at Physicians | [place], [place] | ([facility]) (Primary Dx); | | | | [address] | [address] | Type 2 diabetes | | | | [address] | [phone] | mellitus ([facility]); AMARA | | | | Physician's Pavilion | | (obstructive sleep | | | | Physician's | | apnea); Morbid | | | | Pavilion [place], | | obesity ([facility]); | | | | [place] [address] | | Edema; GERD | | | | [phone] | | (gastroesophageal | | | | [...] Goodrich DO Referring physician: Kathy Feldman, KALYAN [address] [place] [address] HPI: Dylan is a 38 y.o. female [...] 9 CREATININE PLASMA (LAB) 0.71 EGFR - CENTRAL AFRICAN >60 EGFR NON -CENTRAL AFRICAN >60 GLUCOSE, PLASMA (LAB) 113 (H) CALCIUM, [...] | | 2019 | Visit | | [address] | | | | | | [place], [place] | | | | | | [address] | | | | | | [phone] | | | | | | | | +--------+ + + + + | 04/04/ | Telephone-S | Surgery | Orquidea Cristobal, | | | 2019 | sherrill | | AGRICULTURAL LOAN OFFICER [address] | | | | | | [place], [place] | | | | | | [address] | | | | | | [phone] | | | | | | | [...] | PDT | type 2) ([facility]) | results section. | + +--------+ + + + | [place]CTION | Routin | 04/14/2013 | DM type 2 | | | CAPILLARY BLOOD | e | 11:08 AM | (diabetes mellitus, | | | SPECIMEN | | PDT | type 2) ([facility]) | | + +--------+ + [...] AMES | [address] | [place], [place] | | | JUSTINE DAWN OF JAKY | [address] | [address] | | | TESTS | | | [...]
--- OUTSIDE RECORDS SUMMARY | ~2020-02-27 | XMS | Encounter Summary ---
Demographics + + + | Address | [address] | | | [place] [address] | + + + | Home Phone [...] [place], [place] | | | | | [address] | | + + + + + | Ellie Vang | ECON | Unknown | | + + + + + Care Team Providers + +------+ + | Care Photo Finisher Name | Role | Phone | [...] | | 2017 | | Preventive at [facility] | MD [address] | | | | | [address] | [place], [place] | | | | | [facility] | [address] | | | | | and [address] | [phone] | | | | | [place] [address] | | | | | | [place], [place] | | | | | | [address] | | | | | | [phone] | | | +--------+ + + + [...] [address] | | | | | | [place], [place] | | | | | | [address] | | | | | | [phone] | | | | | | | | +--------+ + + + + | 04/04/ | Telephone-S | Surgery | Orquidea Cristobal, | | | 2020 | sherrill | | QUALITY ASSURANCE LEAD [address] | | | | | | [place] | | | | | | [address] | | | | | | [phone] | | | | | | | | +--------+ + + + + documented as of this encounter Visit Diagnoses Not on filedocumented in this encounter"
--- OUTSIDE RECORDS SUMMARY | ~2020-02-27 | XMS | Encounter Summary ---
Demographics + + + | Address | [address] | | | [place] [address] | + + + | Home Phone [...] [place], [place] | | | | | [address] | | + + + + + | Ellie Vang | ECON | Unknown | | + + + + + Care Team Providers + +------+ + | Care Benefits Technician Name | Role | Phone | [...] Diabetes & | Morbid | Kathy Feliciano, RADIO NEWS ANCHOR | [address] | | | | Metabolism | obesity | [address] | Pavilion | | | | | (HCC) | [address], | Loop | | | | | Procedures | [address] | Physician's | | | | | CONSULT TO | [place], [place] | Pavilion | | | | | ENDO | [address] | Physician's | | | | | [address] | Phone: | Pavilion | | | | | [address] | [phone] | [place], [place] | | | | | | Fax: | [address] | | | | | | [phone] | Phone: | | | | | | | [phone] | | | | | | | Fax: | | | | | | | [phone] | +--------+--------+ + + + + Encounter Details +--------+ + + + + | Date | Type | Department | Care Team | Description | +--------+ + + + + | 11/15/ | Documentati | Digestive Health | Conser, Kathy M, | | | 2013 | on | Center at [facility] [address] | RADIO NEWS ANCHOR [address] | | | | | [address] [facility] | [facility] 350 | | | | | for Health and | [place], [place] | | | | | [facility] 2 | [address] | | | | | [place], [place] | [phone] | | | | | [address] | | | | | | [phone] | | | +--------+ + + + [...] Delia | | | | | | [place], [place] | | | | | | [address] | | | | | | [phone] | | | | | | | | +--------+ + + + + | 04/04/ | Telephone-S | Surgery | Orquidea Cristobal, | | | 2019 | sherrill | | FAMILY CONSUMER SCIENCE FCS TEACHER [address] | | | | | | [place], [place] | | | | | | [address] | | | | | | [phone] | | | | | | | | +--------+ + + + + documented as of this encounter Visit Diagnoses + + | Diagnosis | + + | Morbid obesity (HCC) - Primary Morbid obesity | + + documented in this encounter"
--- OUTSIDE RECORDS SUMMARY | ~2020-02-27 | XMS | Encounter Summary ---
Demographics + + + | Address | [address] | | | [place] [address] | + + + | Home Phone [...] [place], [place] | | | | | [address] | | + + + + + | Ellie Vang | ECON | Unknown | | + + + + + Care Team Providers + +------+ + | Care Correction Officer Penitentiary Name | Role | Phone | + [...] [address] | | | | | | [facility] [place] | | | | | | [address] | | | | | | [phone] | | | | | | | | +--------+ + + + + | 04/04/ | Telephone-S | Surgery | Orquidea Cristobal, | | | 2019 | cheduled | | WRINGER MACHINE OPERATOR [address] | | | | | | [place], [place] | | | | | | [address] | | | | | | [phone] | | | | | | | | +--------+ + + + + documented as of this encounter Visit Diagnoses Not on filedocumented in this encounter"
--- OUTSIDE RECORDS SUMMARY | ~2020-02-27 | XMS | Encounter Summary ---
Demographics + + + | Address | [address] | | | [place] [address] | + + + | Home Phone [...] [place], [place] | | | | | [address] | | + + + + + | Ellie Vang | ECON | Unknown | | + + + + + Care Team Providers + +------+ + | Care Games Manager Name | Role | Phone | + +------+ + | Fadi Goodrich DO | PCP | | + +------+ + Encounter Details +--------+ + + + + | Date | Type | Department | Care Team | Description | +--------+ + + + + | 02/24/ | Abstract | Cardiology | Randell Franks, | | | 2015 | | Preventive at [facility] | MD [address] | | | | | [address] | [place], [place] | | | | | [facility] | [address] | | | | | and Erick, | [phone] | | | | | Building [address] | | | | | | [facility] [place] | | | | | | [address] | | | | | | [phone] | | | +--------+ + + + [...] Ave | | | | | | [place], [place] | | | | | | [address] | | | | | | [phone] | | | | | | | | +--------+ + + + + | 04/04/ | Telephone-S | Surgery | Orquidea Cristobal, | | | 2019 | cheduled | | POLISHER DIAL [address] | | | | | | [place], [place] | | | | | | [address] | | | | | | [phone] | | | | | | | | +--------+ + + + + documented as of this encounter Visit Diagnoses Not on filedocumented in this encounter"
--- OUTSIDE RECORDS SUMMARY | ~2020-02-27 | XMS | Encounter Summary ---
Demographics + + + | Address | [address] | | | [place] [address] | + + + | Home Phone [...] [place], [place] | | | | | [address] | | + + + + + | Ellie Vang | ECON | Unknown | | + + + + + Care Team Providers + +------+ + | Care Control Electrician Name | Role | Phone | [...] | | | | | | [place], [place] | | | | | | [address] | | | | | | [phone] | | | +--------+ + + + [...] [address] | | | | | | [place], [place] | | | | | | [address] | | | | | | [phone] | | | | | | | | +--------+ + + + + | 04/04/ | Telephone-S | Surgery | Orquidea Cristobal, | | | 2019 | cheduhipolito | | HAND TOUCH UP PAINTER [address] | | | | | | [place] | | | | | | [address] | | | | | | [phone] | | | | | | | | +--------+ + + + + documented as of this encounter Visit Diagnoses Not on filedocumented in this encounter"
--- OUTSIDE RECORDS SUMMARY | ~2020-02-27 | XMS | Encounter Summary ---
Demographics + + + | Address | [address] | | | [place] [address] | + + + | Home Phone [...] [place], [place] | | | | | [address] | | + + + + + | Ellie Vang | ECON | Unknown | | + + + + + Care Team Providers + +------+ + | Care Newspaper Journalist Name | Role | Phone | + [...] | | | without | [place] | [address] | | | | | mention of | | Phone: | | | | | obstruction | | [phone] | | | | | or gangrene | | Fax: | | | | | | | [phone] | +--------+--------+ + + + + Encounter [...] | | | | [address] | [place], [place] | | | | | Physicians [place], | [address] | | | | | 2nd Floor | [phone] | | | | | [place], [place] | | | | | | [address] | | | | | | [phone] | | | +--------+---------+ + + + [...] fine, afebrile. Abdominal exam is completely benign. Tupelo are still in, And wound is healed. Tupelo removed. Drainage is serous, very slight sanguinous. No eviden ce of deep subcutaneous infection. Abdominal wall currently intact. Drain site OK. Assessment/Plan: Satisfactory course following primary repair of incarcerated umbilical he rnia. Pt. Wants to obtain care, including drain removal and diabetic care in [place], so I have referred her to her [...] Ave | | | | | | [place], [place] | | | | | | [address] | | | | | | [phone] | | | | | | | | +--------+ + + + + | 04/04/ | Telephone-S | Surgery | Orquidea Cristobal, | | | 2019 | cheduled | | CONTACT CENTER PROFESSIONAL [address] | | | | | | [place], [place] | | | | | | [address] | | | | | | [phone] | | | | | | | [...]
--- OUTSIDE RECORDS SUMMARY | ~2020-02-27 | XMS | Clinical Summary ---
Demographics + + + | Address | [address] | | | [place] [address] | + + + | Home Phone [...] + +------+ + | Care Director Of Partner Marketing Name | Role | Phone | [...] 7 days. | | | 04/15 | | e | | units capsule [...] 0 | | | Activ | | Zlvnroe-Nbujiilsb-Lx | mouth 2 times daily. | | [...] | + + + +---------+------+------+-------+ | thyroid (MAILROOM COURIER | MAILROOM COURIER Thyroid 30 mg | | 0 | [...] 0 | | | Activ | | (MAXALT-CARPENTER REFRIGERATOR) 5 mg | as needed for | [...] | + + +---------+---+------+---+-------+ | gabapentin | Take 1 cap three | 180 | 3 | 06 | | Activ | | (NEURONTIN) 100 mg | times a day for a | capsule | | 0/20 | | e | | capsuleIndications: | week, then 2 caps | | | 20 | | | | Intractable chronic | three times a day. | | | | | | | [...] x | | 30 October 2015 [facility] Assessment & Plan: Hgb appears to [...] obesityPickwickian syndrome | | Recent admission to [facility] for 100lb | | weight gain- DC on diuresis on 03/06/2016- she feel improvedShe | | was on Metolazone and Torsemide prior to hospitalization- both | | have better bioavailability than lasix in gut edema but she | | retained 100lbs - how ever she is currently on only Torsemide | | 100mg Q12hrs started in [place] and her weight been stable | | sinceShe has no other complaints.She is pending to see | | NephrologistValentina 02/16/2016(Neftali Armando)- Normal LV systolic | | function, mildly [...] + + + | Overview: Problem List Or Assistant Utility | + + + + + [...] + + + + | [facility]: [facility]: Patient with | | [...] responded well to diuresis at | | [facility] (lost 60lb, down to 410), and then [...] Defer Metolazone to her | | outpatient Ballet Teacher or National Sales Consultant- Will continue KCL | | supplementation at 60meq QID despite the spironolactone as she | | remains on the low side- Encourage daily weights at home with a | | log; she should contact her PCP, Ballet Teacher or National Sales Consultant for | | a 10lb weight [...] morbid obesity, she is enrolled in the [facility] bariatric program. | | She has lost [...] inpatient, tolerating well in the | | [facility] arranging for BiPAP upon d/c home to [facility] | | areaOverview: Cannot tolerate [...] Other (Medication) | | 2020 | | | MD [...] Camille De La Paz, | Referral | 2019 | | | MD | | +--------+ + + + + | 01/05/ | Orders Only | Nephrology | Augustine Fu MD | | | 2019 | | | [...] | | | | 44.9 in adult ([facility]); | | | | | | Hyperuricemia | +--------+ + + + + | 01/04/ | Documentati | Nephrology | Banegas, | Results (01/04/20) | | 2020 | on | | Mary Pendleton | | | | | | Medical Office Technology Instructor | | +--------+ + + + + | 01/01/ | Orders Only | Nephrology | Augustine Fu MD | Hyperparathyroidism | | 2020 | | | | ([facility]) (Primary Dx); | | | | [...] 2019 | Office | | MD [address] | | | | Visit | | [address] | | | | | | [place] [address] | | | | | | [phone] | | | | | | | | +--------+ + + + + | 03/29/ | Office | Cardiology | Sulema Altamirano | | | 2019 | Visit | | [address] | | | | | | [address] | | | | | | [place] [address] | | | | | | [phone] | | | | | | | [...] + | Med Mgmt: INR | | 02/15/20 | | | | 6 | 16 | | + + + [...] | [employer] | MODA | [id number] | 10/28/19 | [phone] | | Medica | | MEDICAID HMO | HEALTH | | 19-Pre | 1 | | id | | | MDCD | | sent | | | | | | [place] | | | | | | + +--------+ +--------+ +---------+--------+ | [employer] | MODA | [id number] | | [phone] | | Medica | | [...] | [birth year] | | [address] | | | al/Fam | | 1974 | [phone] | [place], [place] | | | mireya | | | 3 (Home) | [phone] | + +--------+ +--------+ + + | Elzbieta Cristina | Person | Self | [birth year] | | [address] | | | al/Fam | | 1974 | [phone] | [address], [place] | | | mireya | | | 3 ([place]) | [phone] | + +--------+ +--------+ + + Advance Directives + + + + + | Type | Date Recorded | Patient | Explanation | | | | Patient Accounting Representative | | + + + + + | Power of | | | | | Polygraph Technician | | | | + + + + + | Advance | | | | | Directive | | | | + + + + +
--- OUTSIDE RECORDS SUMMARY | ~2020-02-27 | XMS | Encounter Summary ---
Demographics + + + | Address | [address] | | | [place] [address] | + + + | Home Phone [...] [place], [place] | | | | | [address] | | + + + + + | Ellie Vang | ECON | Unknown | | + + + + + Care Team Providers + +------+ + | Care Canal Structure Operator Name | Role | Phone | [...] + | 03/03/ | Documentati | NKECHI CARABALLOU at [facility] | Lab, Gi Procedure | Medical Records | | 2019 | on | [facility] [address] | | Review | | | | [facility] | | | | | | Health and Healing, | | | | | | Building [address] | | | | | | [place], [place] | | | | | | [address] | | | | | | [phone] | | | +--------+ + + + [...] Ave | | | | | | [place], [place] | | | | | | [address] | | | | | | [phone] | | | | | | | | +--------+ + + + + | 04/04/ | Telephone-S | Surgery | Orquidea Cristobal, | | | 2019 | cheduled | | SOLAR SALES SPECIALIST [address] | | | | | | [place], [place] | | | | | | [address] | | | | | | [phone] | | | | | | | | +--------+ + + + + documented as of this encounter Visit Diagnoses Not on filedocumented in this encounter"
--- OUTSIDE RECORDS SUMMARY | ~2020-02-27 | XMS | Encounter Summary ---
[...] [place], [place] | | | | | [address] | | + + + + + | Ellie Vang | ECON | Unknown | | + + + + + Care Team Providers + +------+ + | Care Director Of Retention Name | Role | Phone | + +------+ + | Kenyatta Cardenas MD | PCP | | + +------+ + Encounter Details +--------+ + + + + | Date | Type | Department | Care Team | Description | +--------+ + + + + | 06/12/ | Documentati | Digestive Health | Clinic, Surgery | | | 2016 | on | Center at [place] [id number] | | | | | | [address] [facility] | | | | | | for Health and | | | | | | [facility], [address] | | | | | | [place], [place] | | | | | | [address] | | | | | | [phone] | | | +--------+ + + + [...] Ave | | | | | | [place], [place] | | | | | | [address] | | | | | | [phone] | | | | | | | | +--------+ + + + + | 04/04/ | Telephone-S | Surgery | Orquidea Cristobal, | | | 2019 | cheduled | | DIRECTIONAL SURVEY DRAFTER [address] | | | | | | [place], [place] | | | | | | [address] | | | | | | [phone] | | | | | | | | +--------+ + + + + documented as of this encounter Visit Diagnoses Not on filedocumented in this encounter"
--- OUTSIDE RECORDS SUMMARY | ~2020-02-27 | XMS | Encounter Summary ---
Demographics + + + | Address | [address] | | | [place] [address] | + + + | Home Phone [...] + | Katalina Padilla | ECON | [address] | | | | | [place], [place] | | | | | [address] | | + + + + + | Ellie Vang | ECON | Unknown | | + + + + + Care Team Providers + +------+ + | Care Principal Strategist Name | Role | Phone | + +------+ + | Fadi Goodrich DO | PCP | | + +------+ + Encounter Details +--------+ + + + + | Date | Type | Department | Care Team | Description | +--------+ + + + + | 11/06/ | Abstract | Digestive Health | Shereen Georges, | | | 2014 | | Center at [facility] [address] | ACNP [address] | | | | | [address] | Ave [place], [place] | | | | | for Health and | [address] | | | | | [facility] [address] | | | | | | [place], [place] | | | | | | [address] | | | | | | | [...] Ave | | | | | | [place], [place] | | | | | | [address] | | | | | | [phone] | | | | | | | | +--------+ + + + + | 04/04/ | Telephone-S | Surgery | Orquidea Cristobal, | | | 2019 | chesteve | | HIGHWAY WORKER [address] | | | | | | [place], [place] | | | | | | [address] | | | | | | [phone] | | | | | | | | +--------+ + + + + documented as of this encounter Visit Diagnoses Not on filedocumented in this encounter"
--- OUTSIDE RECORDS SUMMARY | ~2020-02-27 | XMS | Encounter Summary ---
Demographics + + + | Address | [address] | | | [place] [address] | + + + | Home Phone [...] | Author | [facility] | | | and Jeffana | + + + | Organization | [facility] | | [...] Providers + +------+ + | Care Tie Sawyer Name | Role | Phone | [...] Closed | | Audiology | Diagnoses | Sorrento, | Esarey, | | | | | Audio and | Shamar eFliciano MD | [place], [place] | | | | | tymps fax | [address] | CCC-[facility] [address] | | | | | report/no | [address] | [place] [address] | | | | | previous | [place], | [address] [place] | | | | | audiogram | [place] [address] | [place], [place] | | | | | Procedures | Phone: | [phone] Phone: | | | | | OFFICE VISIT | [phone] | [phone] | | | | | REGULAR | Fax: | Fax: | | | | | | [phone] | [phone] | +--------+--------+ + + + + Encounter Details +--------+---------+ + + + | Date | Type | Department | Care Team | Description | +--------+---------+ + + + | 10/31/ | Office | [facility] [place] | Sherron Freedman [place] | Normal hearing noted | | 2019 | Visit | AUDIOLOGY AND | CCC-[facility] [address] | on examination | | | | [facility]AR[facility] SERVICES | [address] | (Primary Dx); | | | | [address] [place] | [place] [address] | Pressure sensation | | | | [address] [place] | [phone] | in both ears | | | | [place] [address] | | | | | | [phone] | | | +--------+---------+ + + + [...] | | | Visit | | [address] [facility] [address] | | | | | | [place] [address] | | | | | | [phone] | | | | | | | | +--------+ + + + + | 03/29/ | Office | Cardiology | Sulema Altamirano | | 2019 | Visit | | [address] | | | | | | [address] | | | | | | [place] [address] | | | | | | [phone] | | | | | | | [...]
--- OUTSIDE RECORDS SUMMARY | ~2020-02-27 | XMS | Encounter Summary ---
Demographics + + + | Address | [address] | | | [place] [address] | + + + | Home Phone [...] [place], [place] | | | | | [address] | | + + + + + | Ellie Vang | ECON | Unknown | | + + + + + Care Team Providers + +------+ + | Care Audit Control Clerk Name | Role | Phone [...] Order | [address] | [address] [facility] [place] | | | | | [address] | [address] | | | | | [address], | [phone] | | | | | 4th floor [place], | | | | | | [place] [address] | | | | | | [phone] | | | +--------+ + + + [...] [address] | | | | | | [place], [place] | | | | | | [address] | | | | | | [phone] | | | | | | | | +--------+ + + + + | 04/04/ | Telephone-S | Surgery | Orquidea Cristobal, | | | 2019 | sherrill | | HARP ACTION ASSEMBLER [address] | | | | | | [place], [place] | | | | | | [address] | | | | | | [phone] | | | | | | | | +--------+ + + + + documented as of this encounter Results EGD (06/23/2018 3:58 PM PST) + + | Specimen | + + | | + + + +--------- -----+ | Narrative | Zuleimae d At | + +--------- -----+ | MRN: | NKECHI | | [id number] Date: 06/23/2018Patient Name: Elzbieta Curtis #: | ENDOSCOP Y | | [id number] of : 1975CSN: [id number] Type: | | | AmbulatoryRoom: SORProcedure: Upper GI | | | endoscopyIndications: Nausea with vomiting, Status post | | | Cwhp-pc-NJobkvcyhq: KALEB MILES MD (Doctor), JOSE | | | [place]IMA, Master At Arms | | | (Master At Arms)Referring MD: DANIELLE GARCÍAPRequestdonya | | | Provider: [...] | | | The Olympus [id number] Gastroscope #[id number] was | | | introduced through the [...] endoscope without resistance. The | | | juvgp-fu-dgworvx limb was characterized by healthy appearing | [...] Initiated On: | | | 06/23/2018 3:58 [facility] Letter to: RADHA MICHAEL DO | [...]
--- OUTSIDE RECORDS SUMMARY | ~2020-02-27 | XMS | Encounter Summary ---
Demographics + + + | Address | [address] | | | [place] [address] | + + + | Home Phone [...] [place], [place] | | | | | [address] | | + + + + + | Ellie Vang | ECON | Unknown | | + + + + + Care Team Providers + +------+ + | Care Manager Special Events Name | Role | Phone [...] CHOLECYSTECOMY WITH | | | | Brock [facility] Moreno | Clarence Gutiérrez [place], | INTRA-OP | | | | Hospital Admitting | [place] [address] | CHOLANGIOGRAM | | | | Desk Located on the | [phone] | | | | | 9th floor | | | | | | [place], [place] | | | | | | [address] | | | +--------+---------+ + + + [...] resident s note. PRADIP STARR MD [facility] [address] [facility] [place] [address] orrest, Maryam Yu MD - 1:05 PM PDT [facility] DEPARTMENT OF SURGERY [...] DM who presented to the [facility] ED ([place], [place]) on 02/06/14, with a week hi story of RUQ abdominal pain that radiates to her back. There, she was found to have leukocyt osis and multiple tiny, mobile stones, + sonographic Peterson's sign on abdominal ultrasound, concerning for acute cholecystitis. She was givenIV antibiotics (cipro, flagyl) and pain med s, then transferred to [facility] by [facility] for further care. Ms. Romero [...] up with Trauma Emergency General Surgery at [facility] In 4 weeks. (follow up in 2-4 weeks ) Contact information [address] [facility] Mailcode: L223a [address] [place] [address] Thank you for the opportunity to take care of DYLAN ROMERO during this inpatient stay, it has been our pleasure. Please call with any questions, . Discharging Provider: MAYRAM RHODES MD PGY-1, General Surgery Attending Physician: [...] resident s note. PRADIP STARR MD [facility] [address] [place] [address] orrMaryam hill MD - 5:17 AM PDT [facility] DEPARTMENT OF SURGERY EMERGENCY GENERAL SURGERY [...] tolerated MARYAM RHODES MD PGY-1, General Surgery [address] pager number [facility] A [address] [place] [facility] [place] [address] documented in this encoun ter Plan of Treatment +--------+ + + + + | Date | Type | Specialty | Care Team | Description | +--------+ + + + + | 03/22/ | Office | Cardiology | Randell Franks, | | | 2019 | Visit | | MD [address] | | | | | | [place], [place] | | | | | | [address] | | | | | | [phone] | | | | | | | | +--------+ + + + + | 04/04/ | Telephone-S | Surgery | Orquidea Cristobal, | | | 2019 | cheduled | | CARRIER DRIVER [address] | | | | | | [place], [place] | | | | | | [address] | | | | | | [phone] | | | | | | | [...] - [facility] | [address] | [place], [place] | | | JUSTINE DAWN OF CARE | [facility] | [address] | | | TESTS | | | [...] | 60 - 99 mg/dL | [facility] - [...] AMES | [address] | [place], [place] | | | JUSTINE DAWN OF [facility] | [facility] | [address] | | | TESTS | | | [...] KWAKU | [address] | [place], [place] | | | JUSTINE DAWN OF JAKY | [address] | [address] | | | TESTS | | | [...] NKECHI AMES | [address] | [place], [place] | | | LÓPEZ POINT OF CARE | [address] | [address] | | | TESTS | | | [...] [facility] | [address] | [place] [address] | | | SERVICES, | [address] [...] [facility] | [address] | [place] [address] | | | SERVICES, | [address] [...] - [facility] | [address] | [place], [place] | | | SARCOXIE TACOMA OF [facility] | [address] | [address] | | | TESTS | | | [...] | + + + + + | [facility] | [address] | [place] [address] | | | SERVICES, CORE | PARK [...] + + + + + | [facility] | [address] | [place] [address] | | | SERVICES, CORE | PARK [...] + + + + + | [facility] | [address] [facility] | [place] [address] | | | CLAIRE, LYDIA | CLARENCE [...] | + + + + + | [facility] | [address] | [place] [address] | | | SERVICES, CORE | PARK [...] | | | LABORATORY | | | TAJIK | | | SERVICES, | | | [...] the MDRD equation recommended by the | [facility]ESU | | National Kidney Disease Education Program. [...] + + + + + | [facility] | [address] | [place] [address] | | | LYDIA RANGEL | CLARENCE [...] - [facility] | [address] | [place], [place] | | | LÓPEZ POINT OF CARE | [facility] | [address] | | | TESTS | | | [...] pattern. | | | | | | Frit Burner | | | | | | sections [...] + + + + | [facility] | [address] | [place] [address] | | | PATHOLOGY | [address] [...]
--- OUTSIDE RECORDS SUMMARY | ~2020-02-27 | XMS | Encounter Summary ---
Demographics + + + | Address | [address] | | | [place] [address] | + + + | Home Phone [...] Providers + +------+ + | Care Photo Technician Name | Role | Phone | + +------+ + PCP | Unavailable | + +------+ + Encounter Details +--------+ + + + + | Date | Type | Department | Care Team | Description | +--------+ + + + + | 10/14/ | Orders Only | [facility] | Conversion | | | 2017 | | NEPRHOLOGY SHERVASU | Transaction, | | | | | [address] | Provider Unknown | | | | | [address] [place], [place] | [phone] | | | | | [address] | | | | | | [phone] | | | +--------+ + + + [...] | | | | | | [place] [address] | | | | | | [phone] | | | | | | | | +--------+ + + + + | 03/29/ | Office | Cardiology | Sulema Altamirano | | | 2019 | Visit | | [address] | | | | | | [address] | | | | | | [place] [address] | | | | | | [phone] | | | | | | | [...]
--- OUTSIDE RECORDS SUMMARY | ~2020-02-27 | XMS | Encounter Summary ---
Demographics + + + | Address | [address] | | | [place] [address] | + + + | Home Phone [...] [place], [place] | | | | | [address] | | + + + + + | Ellie Vang | ECON | Unknown | | + + + + + Care Team Providers + +------+ + | Care Professor Of Social Work Name | Role | Phone | + [...] 2018 | | Preventive at [facility] | MD [address] | (Phentermine 37.5mg) | | | | [address] | [place], [place] | | | | | [facility] | [address] | | | | | and Erick, | [phone] | | | | | [facility] [address] | | | | | | [place], [place] | | | | | | [address] | | | | | | [phone] | | | +--------+ + + + [...] [address] | | | | | | [place], [place] | | | | | | [address] | | | | | | [phone] | | | | | | | | +--------+ + + + + | 04/04/ | Telephone-S | Surgery | Orquidea Cristobal, | | | 2020 | sherrill | | WEB DEVELOPMENT DIRECTOR [address] | | | | | | [place], [place] | | | | | | [address] | | | | | | [phone] | | | | | | | | +--------+ + + + + documented as of this encounter Visit Diagnoses Not on filedocumented in this encounter"
--- OUTSIDE RECORDS SUMMARY | ~2020-02-27 | XMS | Encounter Summary ---
Demographics + + + | Address | [address] | | | [place] [address] | + + + | Home Phone [...] [place], [place] | | | | | [address] | | + + + + + | Ellie Vang | ECON | Unknown | | + + + + + Care Team Providers + +------+ + | Care Extracorporeal Technician Name | Role | Phone | [...] | 2015 | | Preventive at [facility] | [address] | | | | | [address] | [place], [place] | | | | | [facility] | [address] | | | | | and Erick | [phone] | | | | | Ingrid | | | | | | [place], [place] | | | | | | [address] | | | | | | [phone] | | | +--------+ + + + [...] Flannery | | | | | | [place], [place] | | | | | | [address] | | | | | | [phone] | | | | | | | | +--------+ + + + + | 04/04/ | Telephone-S | Surgery | Orquidea Cristobal, | | | 2020 | sherrill | | [employer] [address] | | | | | | [place] | | | | | | [address] | | | | | | [phone] | | | | | | | | +--------+ + + + + documented as of this encounter Visit Diagnoses Not on filedocumented in this encounter"
--- OUTSIDE RECORDS SUMMARY | ~2020-02-27 | XMS | Encounter Summary ---
Demographics + + + | Address | [address] | | | [place] [address] | + + + | Home Phone [...] [place], [place] | | | | | [address] | | + + + + + | Ellie Vang | ECON | Unknown | | + + + + + Care Team Providers + +------+ + | Care Event Sales Representative Name | Role | Phone [...] 2017 | | [address] | [address] | Y GASTRIC BYPASS | | | | [facility] | [place], [place] | | | | | Hospital Admitting | [address] | | | | | Desk Located on the | [phone] | | | | | 9th floor | | | | | | [place], [place] | | | | | | [address] | | | +--------+---------+ + + + [...] ACNP - 03/03/2018 9:49 AM PDT [facility] RED SURGERY [...] to a bariatric full liquid diets. Our [facility] dietitian was consulted and they discussed [...] at minimum. 5. Follow with PCP for Event Staff Member within 1 - 2 weeks of discharge [...] mg by mouth two times daily. CALCIUM CRB&DSB-T6-EUC94-GENIS ORAL Take 2 tablets by mouth two [...] yogurt or kefir. Zaria's Yogurt or Kefir, Snapflowfield Yogurt, and Perpetualln i English Yogurt are common brands with beneficial probiotics. [...] are available over the counter at most [facility] stores. Nausea/Vomiting/Difficulty Swallowing Nausea/Vomiting/Difficulty swallowing: Could be [...] hours per your instructions. Some medications, like [place], have Tylenol in it. Make sure you [...] (PCP) as this clinic does not provide [facility]. When to Call [...] hours by calling the surgery office at [phone]. - After hours, weekends and holidays, you may call the hospital power system operator at [phone] an d have the simulation engineer Red Surgery Team paged. OTHER DISCHARGE ORDERS [...] at minimum. 5. Follow with PCP for Event Staff Member within 1 - 2 weeks of discharge [...] Department Dept Phone Center 03/10/2018 1:30 PM [facility] at [facility] 6th Floor [phone] FO OD AND NUT 03/10/2018 3:05 PM Ronna Clarke Digestive [facility] at [facility] 6th Floor [phone] [facility] 04/01/2018 10:30 AM [facility] at [facility] 6th Floor [phone] FO OD AND NUT 04/01/2018 11:00 AM Ion Castanon Digestive [facility] at [facility] 6th Floor [phone] [facility] 05/27/2018 2:30 PM [facility] at [facility] 6th Floor [phone] FO OD AND NUT 05/27/2018 3:05 PM [facility] 6th Floor [phone] [facility] 05/27/2018 4:30 PM Demar Cueva [facility] at [facility] 15th Floor [phone] Comprehensiv 06/04/2018 10:35 AM Randell Frakns Cardiology Preventive at [facility] [phone] Cardiology Discharging Physician: KAIN Agee Attending Physician: Ion Castanon MD [facility] Red Surgery Pager# [phone] 9:50 AM 03/03/2018 documented in this enco [...] | | 0 | | | | CRB&SBR-J6-SWY74-GEN | mouth two times | | | [...] date of discharge 03/03/18 PARTHA Rajwinder MS3 [facility] [employer] Demarcus Menon MD [...] for care ride home (pt lives in [place]) Demarcus Alas M.D. General Surgery Resident PGY-1 Pager: [phone] Ion Ferrari MD - 10:00 AM [address] [...] [address] | | | | | | [place], [place] | | | | | | [address] | | | | | | [phone] | | | | | | | | +--------+ + + + + | 04/04/ | Telephone-S | Surgery | Orquidea Cristobal, | | | 2019 | cheduled | | GRIEVANCE AND APPEALS SPECIALIST [address] | | | | | | [place], [place] | | | | | | [address] | | | | | | [phone] | | | | | | | [...] MARQUAM | [address] | [place], [place] | | | [facility]ARE | [address] | [address] | | | TESTS | | | [...] MARPATAM | [address] | [place], [place] | | | [facility] | [facility] | [address] | | | TESTS | | | [...] AMES | [address] | [place], [place] | | | [facility] CARE | [address] | [address] | | | TESTS | | | [...] MARPATAM | [address] | [place] | | | [facility]ARE | [address] | [address] | | | TESTS | | | [...] MARQUAM | [address] | [place], [place] | | | [facility]ARE | [address] | [address] | | | TESTS | | | [...] AMES | [address] | [place], [place] | | | [facility] CARE | [address] | [address] | | | TESTS | | | [...] MARPATAM | [address] | [place], [place] | | | [facility]ARE | [address] | [address] | | | TESTS | | | [...] - MARQUAM | [address] | [place], [place] | | | [facility] CARE | [address] | [address] | | | TESTS | | | [...] AMES | [address] | [place], [place] | | | [facility] CARE | [address] | [address] | | | TESTS | | | [...] MARPATAM | [address] | [place], [place] | | | JUSTINE DAWN OF JAKY | [address] | [address] | | | TESTS | | | [...] - MARQUAM | [address] | [place], [place] | | | [facility] CARE | [address] | [address] | | | TESTS | | | [...] AMES | [address] | [place], [place] | | | [facility] POINT OF CARE | [address] | [address] | | | TESTS | | | [...] MARQUAM | [address] | [place], [place] | | | JUSTINE DAWN OF JAKY | [address] | [address] | | | TESTS | | | [...] - MARQUAM | [address] | [place], [place] | | | [facility] PO[facility] CARE | [address] | [address] | | | TESTS | | | [...] + + + | NKECHI AMES | [address] | [place], [place] | | | [facility] | [address] | [address] | | | TESTS | | | [...] MARQUAM | [address] | [place], [place] | | | [facility] CARE | [address] | [address] | | | TESTS | | | [...] MARPATAM | [address] | [place], [place] | | | [facility] CARE | [address] | [address] | | | TESTS | | | [...] AMES | [address] | [place], [place] | | | [facility] POINT OF CARE | [address] | [address] | | | TESTS | | | [...] MARQUAM | [address] | [place], [place] | | | [facility]ARE | [address] | [address] | | | TESTS | | | [...] MARPATAM | [address] | [place], [place] | | | [facility] CARE | [address] | [address] | | | TESTS | | | [...] AMES | [address] | [place], [place] | | | [facility] CARE | [address] | [address] | | | TESTS | | | [...] MARQUAM | [address] | [place], [place] | | | [facility]ARE | [address] | [address] | | | TESTS | | | [...] - MARQUAM | [address] | [place], [place] | | | [facility] POINT [facility] CARE | [address] | [address] | | | TESTS | | | [...] (H) | 70 - 99 mg/dL | [facility] | | | GLUCOSE, | [...] + + + | NKECHI AMES | [address] | [place], [place] | | | [facility] CARE | [address] | [address] | | | TESTS | | | [...] MARQUAM | [address] | [place], [place] | | | JUSTINE DAWN OF JAKY | [address] | [address] | | | TESTS | | | [...] + + | NKECHI AMES | [address] [facility] [address] | [place], [place] | | | [facility] | [address] | [address] | | | TESTS | | | | + + + + + EGD (ESOPHAGOGASTRODUODENOSCOPY) (03/01/2018 11:21 AM PDT) + + + | Narrative | Performed At | + + + | Ion Castanon MD 03/01/2018 12:25 PM Date of Procedure: | | | 03/01/18 Primary Surgeon: Ion Castanon MD Co Surgeon or | | | assistant professor of communication: Eldon Gonzalez MD, Chief Resident Alexx | [...] The jejunum was divided with 60 mm Oglethorpe stapler with white | | | load [...] created in each limb and a 60mm Oglethorpe stapler | | | with white load was fired to create a ohwg-lo-mddy | | | jejunojejunostomy. The anastamosis was confirmed to be widely | | | patent and hemostatic. The common enterotomy was closed by placing | | | 2 stay sutures along the enterotomy for retraction and firing an | | | Oglethorpe 60mm stapler with white load across the [...] | | | was entered. The 60mm Oglethorpe stapler with blue load was placed | [...] blue load of the 60mm stapler. The Oglethorpe was then fired | | | longitudinally towards the angle of His to create the gastric pouch, | | | leaving the gastrotomy from foreign body removal, on the pouch. | | | Dissection was performed retrogastric to connect posterior and | | | anterior dissection planes and ensure adequate fundus exclusion. | | | Additional fires of the Oglethorpe stapler were performed with blue | | [...] with | | | 5 mm clip aligner. A 25mm Orvil was passed transorally by [...] was closed with 60mm | | | Oglethorpe stapler with a white load. Medially and [...] | | | as my assistant professor of communication for the entire procedure, given the technically | | | challenging nature of this procedure. She assisted in all critical | | | steps of the procedure. Dr. Gonzalez was present for endoscopy at the | | | end of the procedure. Ion Castanon MD, FACS, [facility] | | | Bariatric Surgery [...] or | | | assistant professor of communication: Eldon Gonzalez MD, Chief Resident Alexx | [...] The jejunum was divided with 60 mm Oglethorpe stapler with white | | | load [...] created in each limb and a 60mm Oglethorpe stapler | | | with white load was fired to create a cptb-th-sngc | | | jejunojejunostomy. The anastamosis was confirmed to be widely | | | patent and hemostatic. The common enterotomy was closed by placing | | | 2 stay sutures along the enterotomy for retraction and firing an | | | Oglethorpe 60mm stapler with white load across the [...] | | | was entered. The 60mm Oglethorpe stapler with blue load was placed | [...] blue load of the 60mm stapler. The Oglethorpe was then fired | | | longitudinally towards the angle of His to create the gastric pouch, | | | leaving the gastrotomy from foreign body removal, on the pouch. | | | Dissection was performed retrogastric to connect posterior and | | | anterior dissection planes and ensure adequate fundus exclusion. | | | Additional fires of the Oglethorpe stapler were performed with blue | | [...] with | | | 5 mm clip aligner. A 25mm Orvil was passed transorally by [...] was closed with 60mm | | | Oglethorpe stapler with a white load. Medially and [...] | | | as my assistant professor of communication for the entire procedure, given the technically | | | challenging nature of this procedure. She assisted in all critical | | | steps of the procedure. Dr. Gonzalez was present for endoscopy at the | | | end of the procedure. Ion Castanon MD, FACS, [facility] | | | Bariatric Surgery [...] AMES | [address] | [place], [place] | | | [facility] | [facility] | [address] | | | TESTS | | | [...]
--- OUTSIDE RECORDS SUMMARY | ~2020-02-27 | XMS | Encounter Summary ---
Demographics + + + | Address | [address] | | | [place] [address] | + + + | Home Phone [...] + + | Organization | [facility] | | [...] Team Providers + +------+ + | Care Turn Machine Operator Name | Role | Phone | + +------+ + PCP | Unavailable | + +------+ + Encounter Details +--------+ + + + + | Date | Type | Department | Care Team | Description | +--------+ + + + + | 12/07/ | Orders Only | [facility] | Conversion | | | 2019 | | NEPHROLOGY [place] | Transaction, | | | | | [address] | Provider Unknown | | | | | [address] [place], [place] | | | | | | [address] | (Fax) | | | | | [phone] | | | +--------+ + + + [...] D | | | | | | [place] [address] | | | | | | [phone] | | | | | | | | +--------+ + + + + | 03/29/ | Office | Cardiology | Sulema Altamirano | | | 2019 | Visit | | [address] | | | | | | [address] | | | | | | [place] [address] | | | | | | [phone] | | | | | | | [...] | | | LAB | | | [place] | | | | | + +-------+ [...]
--- OUTSIDE RECORDS SUMMARY | ~2020-02-27 | XMS | Encounter Summary ---
Demographics + + + | Address | [address] | | | [place] [address] | + + + | Home Phone [...] Team Providers + +------+ + | Care Hospitality Services Manager Name | Role | Phone | + +------+ + PCP | Unavailable | + +------+ + Encounter Details +--------+ + + + + | Date | Type | Department | Care Team | Description | +--------+ + + + + | 09/27/ | Orders Only | [facility] | Dharmesh Escobar, | | | 2018 | | NEPHROLOGY [place] | YARD SPOTTER [address] | | | | | [address] [place] | [address] | | | | | [address] [facility] [place] | [place], [place] | | | | | [address] | [address] | | | | | [phone] | [phone] | | | | | | | [...] | | | | | | [place] [address] | | | | | | [phone] | | | | | | | | +--------+ + + + + | 03/29/ | Office | Cardiology | Sulema Altamirano | | | 2019 | Visit | | [address] | | | | | | [address] | | | | | | [place] [address] | | | | | | [phone] | | | | | | | [...] | | | LAB | | | [place] | | | | | + +---------+ [...]
--- OUTSIDE RECORDS SUMMARY | ~2020-02-27 | XMS | Encounter Summary ---
Demographics + + + | Address | [address] | | | [place] [address] | + + + | Home Phone [...] [place], [place] | | | | | [address] | | + + + + + | Ellie Vang | ECON | Unknown | | + + + + + Care Team Providers + +------+ + | Care Blocking Machine Operator Name | Role | Phone [...] | | 2 diabetes | [place], | [place], [place] | | | | | mellitus | [place] [address] | [address] | | | | | without | Phone: | Phone: | | | | | complication | [phone] | [phone] | | | | | (HCC) | Fax: | Fax: | | | | | Procedures | [phone] | [phone] | | | | | LA EST [...] | unspecified type | | | | [place] at | [place], [place] | (Primary Dx); Severe | | | | [place] [address] [address] | [address] | Morbid obesity | | | | [address] [facility] | [phone] | (HCC), BMI 88 | | | | [facility] | | | | | | [place], [place] | | | | | | [address] | | | | | | [phone] | | | +--------+---------+ + + + [...] Andie Brian Incisional hernia repair 03/01/2015 [facility]/ Dr. Cantu. Primary fascial closure and scar excision Lap gastric byp, and nilesh-en-y gastroenterostomy w/ nilesh limb 150 cm or less 8 [facility] Cholecyst[facility], laparoscopic Current Outpatient Medications [...] by mouth once daily at bedtime. CALCIUM CRB&LNR-G0-HCD92-GENIS ORAL Take 2 tablets by mouth two [...] 50 mg by mouth once daily. thyroid (PROFESSOR OF COMMUNICATION AND WRITING THYROID) 30 mg oral tablet tab Take [...] 9 CREATININE PLASMA (LAB) 0.82 EGFR - BHUTANESE >60 EGFR NON -BHUTANESE >60 GLUCOSE, PLASMA (LAB) 94 CALCIUM, PLASMA [...] is currently being managed well by her Neurosurgical Physician Assistant with diuretics and main tenance of her [...] management of her heart failure by her Neurosurgical Physician Assistant 3) Continue management of her ventral hernia [...] Ave | | | | | | [place], [place] | | | | | | [address] | | | | | | [phone] | | | | | | | | +--------+ + + + + | 04/04/ | Telephone-S | Surgery | Orquidea Cristobal, | | | 2019 | cheduled | | UAT TESTER [address] | | | | | | [place], [place] | | | | | | [address] | | | | | | [phone] | | | | | | | [...] [facility] | [address] | [place] [address] | | | SERVICES, CORE | CLARENCE [...] + | [facility] | [address] | [place] [address] | | | SERVICES, CORE | PARK [...] | + + + + + | [facility] | [address] | [place] [address] | | | SERVICES, SPECIAL | CLARENCE [...]
--- OUTSIDE RECORDS SUMMARY | ~2020-02-27 | XMS | Encounter Summary ---
Demographics + + + | Address | [address] | | | [place] [address] | + + + | Home Phone [...] [place], [place] | | | | | [address] | | + + + + + | Ellie Vang | ECON | Unknown | | + + + + + Care Team Providers + +------+ + | Care Sales Agent Pest Control Service Name | Role | Phone | [...] | | | without | [place] | [address] | | | | | mention of | | Phone: | | | | | obstruction | | [phone] | | | | | or gangrene | | Fax: | | | | | | | [phone] | +--------+--------+ + + + + Encounter [...] | | | | [address] | [place], [place] | | | | | Physicians [place], | [address] | | | | | 2nd Floor | [phone] | | | | | [place], [place] | | | | | | [address] | | | | | | [phone] | | | +--------+---------+ + + + [...] fine, afebrile. Abdominal exam is completely benign. Machias are still in, And wound is healed. Machias removed. Drainage is serous, very slight sanguinous. No eviden ce of deep subcutaneous infection. Abdominal wall currently intact. Drain site OK. Assessment/Plan: Satisfactory course following primary repair of incarcerated umbilical he rnia. Pt. Wants to obtain care, including drain removal and diabetic care in [place], so I have referred her to her [...] Ave | | | | | | [place], [place] | | | | | | [address] | | | | | | [phone] | | | | | | | | +--------+ + + + + | 04/04/ | Telephone-S | Surgery | Orquidea Cristobal, | | | 2019 | cheduled | | OTOLARYNGOLOGY SURGEON [address] | | | | | | [place], [place] | | | | | | [address] | | | | | | [phone] | | | | | | | [...]
--- OUTSIDE RECORDS SUMMARY | ~2020-02-27 | XMS | Encounter Summary ---
Demographics + + + | Address | [address] | | | [place] [address] | + + + | Home Phone [...] [place], [place] | | | | | [address] | | + + + + + | Ellie Vang | ECON | Unknown | | + + + + + Care Team Providers + +------+ + | Care Vocational Training Instructor Name | Role | Phone | [...] Davis | | | | | [facility] | [facility] | | | | | [facility] Admitting | [place] [address] | | | | | Desk Located on the | [phone] | | | | | 9th floor | | | | | | [place], [place] | | | | | | [address] | | | +--------+ + + + [...] [address] | | | | | | [place], [place] | | | | | | [address] | | | | | | [phone] | | | | | | | | +--------+ + + + + | 04/04/ | Telephone-S | Surgery | Orquidea Cristobal, | | | 2020 | sherrill | | OTR DRIVER [address] | | | | | | [place], [place] | | | | | | [address] | | | | | | [phone] | | | | | | | [...]
--- OUTSIDE RECORDS SUMMARY | ~2020-02-27 | XMS | Encounter Summary ---
Demographics + + + | Address | [address] | | | [place] [address] | + + + | Home Phone [...] [place], [place] | | | | | [address] | | + + + + + | Ellie Vang | ECON | Unknown | | + + + + + Care Team Providers + +------+ + | Care Hand Hose Cutter Name | Role | Phone | [...] Preventive at [facility] | MD [address] | (phentermine 37.5 mg | | | | [address] | [place], [place] | ) | | | | [facility] | [address] | | | | | and [place], | [phone] | | | | | [place] [address] | | | | | | [place], [place] | | | | | | [address] | | | | | | [phone] | | | +--------+--------+ + + + [...] [address] | | | | | | [place], [place] | | | | | | [address] | | | | | | [phone] | | | | | | | | +--------+ + + + + | 04/04/ | Telephone-S | Surgery | Orquidea Cristobal, | | | 2020 | sherrill | | DINKEY ENGINEER [address] | | | | | | [place], [place] | | | | | | [address] | | | | | | [phone] | | | | | | | | +--------+ + + + + documented as of this encounter Visit Diagnoses Not on filedocumented in this encounter"
--- OUTSIDE RECORDS SUMMARY | ~2020-02-27 | XMS | Encounter Summary ---
Demographics + + + | Address | [address] | | | [place] [address] | + + + | Home Phone [...] [place], [place] | | | | | [address] | | + + + + + | Ellie Vang | ECON | Unknown | | + + + + + Care Team Providers + +------+ + | Care Sr. Merchandise Planner Name | Role | Phone | [...] | | | Procedures | | Rd [place], | | | | | ID MNT | | [place] | | | | | INITIAL | | [address] | | | | | ASSESSMNT | | | | | | | X15MIN ID | | | | | | [...] | 2012 | Visit | Center at [facility] [address] [facility] | mellitus (HCC) | | | | [facility] | [address] | (Primary Dx); Morbid | | | | for Health and | [place], [place] | obesity (HCC) | | | | [place] [address] | [address] | | | | | [place], [place] | | | | | | [address] | | | | | | [phone] | | | +--------+---------+ + + + [...] PDTNutrition appointment, -try keeping food logs online: -www.[email or web address] [employer] -Aim for 2575-4698 calories a day -Increase physical activity -try [...] appropriate portions. Denies any binge eating. Weight changer fixer the past year: > 100 lb wt [...] see an RD for 2 years in [place] but insurance quit paying for it. Up [...] 1000/d--a more appropriate long-term range would be 4996-8773/day. Inadequat e calcium intake; did not address [...] w/ meals & snacks 2. Aim for 6285-6144 kcal/d 3. Keep food logs (at least [...] needed. Olga Lidia Montanez RD, LD Pager [phone] documented in this en counter Plan of Treatment +--------+ + + + + | Date | Type | Specialty | Care Team | Description | +--------+ + + + + | 03/22/ | Office | Cardiology | Randell Franks, | | | 2019 | Visit | | MD [address] | | | | | | [facility] [place] | | | | | | [address] | | | | | | [phone] | | | | | | | | +--------+ + + + + | 04/04/ | Telephone-S | Surgery | Orquidea Cristobal, | | | 2019 | cheduhipolito | | CUSTOMER SUPPORT PROFESSIONAL [address] | | | | | | [place], [place] | | | | | | [address] | | | | | | [phone] | | | | | | | | +--------+ + + + + documented as of this encounter Procedures + +--------+ + + + | Procedure Name | Priori | Date/Time | Associated Diagnosis | Comments | | | ty | | | | + +--------+ + + + | ID MNT INITIAL | Routin | 04/14/2013 | [...]
--- OUTSIDE RECORDS SUMMARY | ~2020-02-27 | XMS | Encounter Summary ---
[...] [place], [place] | | | | | [address] | | + + + + + | Ellie Vang | ECON | Unknown | | + + + + + Care Team Providers + +------+ + | Care Tablet Making Machine Operator Helper Name | Role | [...] Ave | | | | | | [place], [place] | | | | | | [address] | | | | | | [phone] | | | | | | | | +--------+ + + + + | 04/04/ | Telephone-S | Surgery | Orquidea Cristobal, | | | 2019 | cheduled | | RAIL SPECIALIST [address] | | | | | | [place], [place] | | | | | | [address] | | | | | | [phone] | | | | | | | | +--------+ + + + + documented as of this encounter Visit Diagnoses Not on filedocumented in this encounter"
--- OUTSIDE RECORDS SUMMARY | ~2020-02-27 | XMS | Encounter Summary ---
[...] [place], [place] | | | | | [address] | | + + + + + | Ellie Vang | ECON | Unknown | | + + + + + Care Team Providers + +------+ + | Care Account Clerk Name | Role | Phone | [...] | 2014 | Review | Center at [facility] [address] | MD | Decision | | | | [facility] | | | | | | [facility] Health and | | | | | | [facility], [place] [address] | | | | | | [place], [place] | | | | | | [address] | | | | | | [phone] | | | +--------+ + + + [...] [address] | | | | | | [place], [place] | | | | | | [address] | | | | | | [phone] | | | | | | | | +--------+ + + + + | 04/04/ | Telephone-S | Surgery | Orquidea Cristobal, | | | 2019 | cheduled | | APPRENTICE COSMETOLOGIST [address] | | | | | | [place] | | | | | | [address] | | | | | | [phone] | | | | | | | | +--------+ + + + + documented as of this encounter Visit Diagnoses Not on filedocumented in this encounter"
--- OUTSIDE RECORDS SUMMARY | ~2020-02-27 | XMS | Encounter Summary ---
Demographics + + + | Address | [address] | | | [place] [address] | + + + | Home Phone [...] [place], [place] | | | | | [address] | | + + + + + | Ellie Vang | ECON | Unknown | | + + + + + Care Team Providers + +------+ + | Care Powerhouse Operator Name | Role | Phone | [...] | | 2 diabetes | [place], | [place], [place] | | | | | mellitus | [place] [address] | [address] | | | | | without | Phone: | Phone: | | | | | complication | [phone] | [phone] | | | | | (HCC) | Fax: | Fax: | | | | | Procedures | [phone] | [phone] | | | | | HI EST [...] | unspecified type | | | | [place] at | [place], [place] | (Primary Dx); Severe | | | | [place] [address] | [address] | Morbid obesity | | | | [address] [facility] | [phone] | (HCC), BMI 88 | | | | [facility] | | | | | | [place], [place] | | | | | | [address] | | | | | | [phone] | | | +--------+---------+ + + + [...] nilesh limb 150 cm or less 8 [facility], [facility] Current Outpatient Medications [...] by mouth once daily at bedtime. CALCIUM CRB&IFZ-M3-EOQ03-GENIS ORAL Take 2 tablets by mouth two [...] 50 mg by mouth once daily. thyroid (PHYSIOLOGIST THYROID) 30 mg oral tablet tab Take [...] 9 CREATININE PLASMA (LAB) 0.82 EGFR - MACEDONIAN >60 EGFR NON -MACEDONIAN >60 GLUCOSE, PLASMA (LAB) 94 CALCIUM, PLASMA [...] is currently being managed well by her Legal Aid with diuretics and main tenance of her [...] management of her heart failure by her Legal Aid 3) Continue management of her ventral hernia [...] Ave | | | | | | [place], [place] | | | | | | [address] | | | | | | [phone] | | | | | | | | +--------+ + + + + | 04/04/ | Telephone-S | Surgery | Orquidea Cristobal, | | | 2019 | cheduled | | RETAIL AND RESTAURANT ASSOCIATE [address] | | | | | | [place], [place] | | | | | | [address] | | | | | | [phone] | | | | | | | | +--------+ + + + + documented as of this encounter Procedures + +--------+ + + + | Procedure Name | Priori | Date/Time | Associated Diagnosis | Comments | | | ty | | | | + +--------+ + + + | HI COLLECTION VENOUS | Routin | 09/15/2019 | [...] [facility] | [address] | [place] [address] | | | SERVICES, CORE | CLARENCE [...] + + | [facility] | [address] | [place] [address] | | | SERVICES, CORE | PARK [...] | | considered for monitoring termite control representative glycemic control in patients with: | [...] | + + + + + | [facility] | [address] | [place] [address] | | | SERVICES, SPECIAL | CLARENCE [...]
--- OUTSIDE RECORDS SUMMARY | ~2020-02-27 | XMS | Encounter Summary ---
Demographics + + + | Address | [address] | | | [place] [address] | + + + | Home Phone | | + + + | Preferred Language | Unknown | + + + | Marital Status | | + + + | Denominational Affiliation | Unknown | + + + | Race | Unknown | + + + | Ethnic Group | Unknown | + + + Author + + + | Author | [facility] | | | and Jeffana | + + + | Organization | [facility] | | [...] Team Providers + +------+ + | Care Cytotechnologist Supervisor Name | Role | Phone | + +------+ + PCP | Unavailable | + +------+ + Encounter Details +--------+ + + + + | Date | Type | Department | Care Team | Description | +--------+ + + + + | 05/20/ | Hospital | [facility] | RussellErich Brynn | | | 2004 | Encounter | MED CTR SLEEP | MD Michael [address] | | | | | [place] [address] | [address] [place] | | | | | [place], [place] | [place] [address] | | | | | [address] | [phone] | | | | | [phone] | | | +--------+ + + + [...] | | | | | | [place] [address] | | | | | | [phone] | | | | | | | | +--------+ + + + + | 03/29/ | Office | Cardiology | Sulema Altamirano | | | 2019 | Visit | | [address] | | | | | | [address] | | | | | | [place] [address] | | | | | | [phone] | | | | | | | | +--------+ + + + + documented as of this encounter Visit Diagnoses Not on filedocumented in this encounter"
--- OUTSIDE RECORDS SUMMARY | ~2020-02-27 | XMS | Encounter Summary ---
Demographics + + + | Address | [address] | | | [place] [address] | + + + | Home Phone [...] [place], [place] | | | | | [address] | | + + + + + | Ellie Vang | ECON | Unknown | | + + + + + Care Team Providers + +------+ + | Care Compressor Mechanic Name | Role | Phone | + +------+ + | Kenyatta Cardneas MD | PCP | | + +------+ [...] floor | | | | | | [place], [place] | | | | | | [address] | | | +--------+ + + + [...] | | 2020 | Visit | | [address] | | | | | | [place], [place] | | | | | | [address] | | | | | | [phone] | | | | | | | | +--------+ + + + + | 04/04/ | Telephone-S | Surgery | Orquidea Cristobal, | | | 2020 | sherrill | | FINISH PRODUCTION MANAGER [address] | | | | | | [place] | | | | | | [address] | | | | | | [phone] | | | | | | | | +--------+ + + + + documented as of this encounter Visit Diagnoses Not on filedocumented in this encounter"
--- OUTSIDE RECORDS SUMMARY | ~2020-02-27 | XMS | Encounter Summary ---
Demographics + + + | Address | [address] | | | [place] [address] | + + + | Home Phone [...] [place], [place] | | | | | [address] | | + + + + + | Ellie Vang | ECON | Unknown | | + + + + + Care Team Providers + +------+ + | Care Magnaflux Operator Name | Role | Phone | [...] | [facility] | | | with METABOLIC SPECIALIST | | hypertension | [address] | [address] | | | | | Right | [address] | [address] | | | | | heart | [place], [place] | [place] for | | | | | failure | [address] | Health and | | | | | ([facility]) Type | Phone: | Healing, | | | | | 2 diabetes | [phone] | Building [address] | | | | | mellitus | Fax: | [place], [place] | | | | | without | [phone] | [address] | | | | | complication | | Phone: | | | | | , with | | [phone] | | | | | long-term | | Fax: | | | | | current use | | [phone] | | | | | of insulin | | | | | | | ([facility]) [...] | 2017 | Visit | Center at [facility] [address] | [address] | BMI of 70 and over, | | | | [address] | [place], [place] | adult ([facility]) (Primary | | | | for Health and | [address] | Dx); Diabetes | | | | Healing, Building 2 | | mellitus type 2 | | | | [place], [place] | | without retinopathy | | | | [address] | | ([facility]); | | | | | [...] 10:00 AM PDTPlease visit with our [facility] Parts Counterperson (RD) for instructions about your Bariatric diet, assistance with calorie c ounts, tips and tricks for working with your diet restrictions, and recipes after bariatric surgery. Daily yogurt; even just 1 tablespoon twice a day will provide enough probiotics to optimize digestion. Try to use a high-quality, probiotic-dense yogurt (eg Zaria's, [place], Lif eway Kefir, Polytechnic Registrar [employer]'s [place] Yogurt). Remember to chew your food well, [...] 1 tablet by mouth once daily CALCIUM CRB&VGH-P9-IJI39-GENIS ORAL Take 2 tablets by mouth two [...] History Narrative Updated 11/09/15 She lives in [place] with her mother and her sister (also her caregiver) lives in an artment/duplex below. She has 2 grandchildren (age 4 and 7) who live with her daughter and son-in-law Her boyfriend lives in [place] HFpEF, DM2, HTN, Sleep Apnea (unable to [...] program here and refer her to our hub inventory specialist who also has expertise in physical [...] ask questions, and agrees to proce ed. Ezlbieta is willing to comply with postoperative care [...] and may approach 5%. We reviewed the [facility] consent form. We discussed that we did [...] | | 2019 | Visit | | [address] | | | | | | [place], [place] | | | | | | [address] | | | | | | [phone] | | | | | | | | +--------+ + + + + | 04/04/ | Telephone-S | Surgery | Orquidea Cristobal, | | | 2020 | sherrill | | SAT MATH TUTOR [address] | | | | | | [place], [place] | | | | | | [address] | | | | | | [phone] | | | | | | | [...] | | | | | | failure ([facility]) | | | | | [...] B: | | | | | | [employer]/CSPerformed | | | | | | by [employer],[address] | | | | | | [facility] | | | | | | [address] | | | | | | [phone].Dubizzle. | | | | | | HydrelisIsmael MD, | | | | | | [...] [facility] | [address] | [place], [place] | | | [facility] | | [address] | | + + + + + [...] [facility] | [address] | [place] [address] | | | SERVICES, CORE | CLARENCE [...] [facility] | [address] | [place] [address] | | | SERVICES, CORE | PARK [...] [facility] | [address] | [place] [address] | | | SERVICES, CORE | PARK [...] | [facility] | [address] [facility] | [place] [address] | | | SERVICES, CORE | CLARENCE [...] [facility] | [address] | [place] [address] | | | SERVICES, CORE | PARK [...] | + + + + + | [facility] | [address] | [place] [address] | | | SERVICES, CORE | CLARENCE [...]
--- OUTSIDE RECORDS SUMMARY | ~2020-02-27 | XMS | Encounter Summary ---
Demographics + + + | Address | [address] | | | [place] [address] | + + + | Home Phone [...] [place], [place] | | | | | [address] | | + + + + + | Ellie Vang | ECON | Unknown | | + + + + + Care Team Providers + +------+ + | Care Float Phlebotomist Name | Role | Phone | + [...] [facility] [address] | ACNP [address] | | | | | [address] | Ave [place], [place] | | | | | for Health and | [address] | | | | | [facility] 2 | | | | | | [place], [place] | | | | | | [address] | | | | | | | [...] | | | | | | [place], [place] | | | | | | [address] | | | | | | [phone] | | | | | | | | +--------+ + + + + | 04/04/ | Telephone-S | Surgery | Orquidea Cristobal, | | | 2019 | sherrill | | DAIRY HUSBANDRY TEACHER [address] | | | | | | [place], [place] | | | | | | [address] | | | | | | [phone] | | | | | | | | +--------+ + + + + documented as of this encounter Visit Diagnoses Not on filedocumented in this encounter"
--- OUTSIDE RECORDS SUMMARY | ~2020-02-27 | XMS | Encounter Summary ---
Demographics + + + | Address | [address] | | | [place] [address] | + + + | Home Phone [...] [place], [place] | | | | | [address] | | + + + + + | Ellie Vnag | ECON | Unknown | | + + + + + Care Team Providers + +------+ + | Care Hob Mill Operator Name | Role | Phone | + +------+ + | Fadi Goodrich DO | PCP | | + +------+ + Encounter Details +--------+ + + + + | Date | Type | Department | Care Team | Description | +--------+ + + + + | 12/29/ | Abstract | Digestive Health | Hernandez Brian, | | | 2012 | | [place] [address] [address] | [address] [facility] | | | | | [address] [facility] | [facility] | | | | | for [facility] and | [place], [place] | | | | | [facility] 2 | [address] | | | | | [place], [place] | [phone] | | | | | [address] | | | | | | [phone] | | | +--------+ + + + [...] Ave | | | | | | [place], [place] | | | | | | [address] | | | | | | [phone] | | | | | | | | +--------+ + + + + | 04/04/ | Telephone-S | Surgery | Orquidea Cristobal, | | | 2019 | sherrill | | COCOA ROOM OPERATOR [address] | | | | | | [place], [place] | | | | | | [address] | | | | | | [phone] | | | | | | | | +--------+ + + + + documented as of this encounter Visit Diagnoses Not on filedocumented in this encounter"
--- OUTSIDE RECORDS SUMMARY | ~2020-02-27 | XMS | Encounter Summary ---
Demographics + + + | Address | [address] | | | [place] [address] | + + + | Home Phone [...] [place], [place] | | | | | [address] | | + + + + + | Ellie Vang | ECON | Unknown | | + + + + + Care Team Providers + +------+ + | Care Cap Coverer Name | Role | Phone | [...] + + | 07/04/ | Telephone | [facility] | Chilo, | Care Coordination | | 2019 | | Center at [facility] 34[address] | MD Jorje [address] | (follow up) | | | | S [facility] | Giles Grace | | | | | [facility] and | [place], [place] | | | | | [place] [address] | [address] | | | | | [place], [place] | [phone] | | | | | [address] | | | | | | [phone] | | | +--------+ + + + [...] [place] | | | | | | [address] | | | | | | [phone] | | | | | | | | +--------+ + + + + | 04/04/ | Telephone-S | Surgery | Orquidea Cristobal, | | | 2019 | cheduled | | FIELD SPECIALIST [address] | | | | | | [place], [place] | | | | | | [address] | | | | | | [phone] | | | | | | | | +--------+ + + + + documented as of this encounter Visit Diagnoses Not on filedocumented in this encounter"
--- OUTSIDE RECORDS SUMMARY | ~2020-02-27 | XMS | Encounter Summary ---
Demographics + + + | Address | [address] | | | [place] [address] | + + + | Home Phone [...] [place], [place] | | | | | [address] | | + + + + + | Ellie Vang | ECON | Unknown | | + + + + + Care Team Providers + +------+ + | Care Harp Regulator Name | Role | Phone | + [...] | Preventive at [facility] | [address] | | | | | [address] | [place], [place] | | | | | [facility] | [address] | | | | | and Erick | [phone] | | | | | Ingrid | | | | | | [place], [place] | | | | | | [address] | | | | | | [phone] | | | +--------+ + + + [...] [address] | | | | | | [place], [place] | | | | | | [address] | | | | | | [phone] | | | | | | | | +--------+ + + + + | 04/04/ | Telephone-S | Surgery | Orquidea Cristobal, | | | 2020 | sherrill | | EXTENSION COURSE COORDINATOR [address] | | | | | | [place] | | | | | | [address] | | | | | | [phone] | | | | | | | | +--------+ + + + + documented as of this encounter Visit Diagnoses Not on filedocumented in this encounter"
--- OUTSIDE RECORDS SUMMARY | ~2020-02-27 | XMS | Encounter Summary ---
Demographics + + + | Address | [address] | | | [place] [address] | + + + | Home Phone [...] [place], [place] | | | | | [address] | | + + + + + | Ellie Vang | ECON | Unknown | | + + + + + Care Team Providers + +------+ + | Care In Flight Technician Name | Role | Phone | [...] [place] | | | | | | [address] | | | | | | [phone] | | | | | | | | +--------+ + + + + | 04/04/ | Telephone-S | Surgery | Orquidea Cristobal, | | | 2019 | cheduled | | UNIVERSITY LIBRARIAN [address] | | | | | | [place], [place] | | | | | | [address] | | | | | | [phone] | | | | | | | | +--------+ + + + + documented as of this encounter Visit Diagnoses Not on filedocumented in this encounter"
--- OUTSIDE RECORDS SUMMARY | ~2020-02-27 | XMS | Encounter Summary ---
Demographics + + + | Address | [address] | | | [place] [address] | + + + | Home Phone [...] [place], [place] | | | | | [address] | | + + + + + | Ellie Vang | ECON | Unknown | | + + + + + Care Team Providers + +------+ + | Care Surgical Instrument Mechanic Name | Role | Phone | [...] | | 2013 | | Center at [facility] 3485 | ANNEALING FURNACE TENDER [address] | | | | | [address] | [facility] [address] | | | | | for Health and | [place], [place] | | | | | [facility] 2 | [address] | | | | | [place], [place] | [phone] | | | | | [address] | | | | | | [phone] | | | +--------+ + + + [...] [address] | | | | | | [place], [place] | | | | | | [address] | | | | | | [phone] | | | | | | | | +--------+ + + + + | 04/04/ | Telephone-S | Surgery | Orquidea Cristobal, | | | 2019 | sherrill | | BI TESTER [address] | | | | | | [place], [place] | | | | | | [address] | | | | | | [phone] | | | | | | | | +--------+ + + + + documented as of this encounter Visit Diagnoses Not on filedocumented in this encounter"
--- OUTSIDE RECORDS SUMMARY | ~2020-02-27 | XMS | Encounter Summary ---
Demographics + + + | Address | [address] | | | [place] [address] | + + + | Home Phone [...] [place], [place] | | | | | [address] | | + + + + + | Ellie Vang | ECON | Unknown | | + + + + + Care Team Providers + +------+ + | Care Offensive Coordinator Name | Role | Phone | + +------+ + | Fadi Goodrich DO | PCP | | + +------+ + Encounter Details +--------+ + + + + | Date | Type | Department | Care Team | Description | +--------+ + + + + | 02/10/ | Telephone | Digestive Health | Hernandez Brian, | | | 2012 | | [place] [address] [address] | MD [address] [facility] | | | | | [facility] | [facility] | | | | | for Health and | [place], [place] | | | | | [facility] 2 | [address] | | | | | [place], [place] | [phone] | | | | | [address] | | | | | | [phone] | | | +--------+ + + + [...] Ave | | | | | | [place], [place] | | | | | | [address] | | | | | | [phone] | | | | | | | | +--------+ + + + + | 04/04/ | Telephone-S | Surgery | Orquidea Cristobal, | | | 2019 | sherrill | | TWO WAY RADIO TECHNICIAN [address] | | | | | | [place], [place] | | | | | | [address] | | | | | | [phone] | | | | | | | | +--------+ + + + + documented as of this encounter Visit Diagnoses Not on filedocumented in this encounter"
--- OUTSIDE RECORDS SUMMARY | ~2020-02-27 | XMS | Encounter Summary ---
Demographics + + + | Address | [address] | | | [place] [address] | + + + | Home Phone [...] [place], [place] | | | | | [address] | | + + + + + | Ellie Vang | ECON | Unknown | | + + + + + Care Team Providers + +------+ + | Care Armhole Raiser Lockstitch Name | Role | Phone | [...] | | 2020 | | Preventive at [facility] | MD [address] | | | | | [address] | [place], [place] | | | | | [facility] | [address] | | | | | and [place], | [phone] | | | | | Building [address] | | | | | | [facility] [place] | | | | | | [address] | | | | | | [phone] | | | +--------+ + + + [...] Ave | | | | | | [place], [place] | | | | | | [address] | | | | | | [phone] | | | | | | | | +--------+ + + + + | 04/04/ | Telephone-S | Surgery | Orquidea Cristobal, | | | 2019 | cheduled | | PAINTER SIGN MAINTENANCE [address] | | | | | | [place], [place] | | | | | | [address] | | | | | | [phone] | | | | | | | | +--------+ + + + + documented as of this encounter Visit Diagnoses Not on filedocumented in this encounter"
--- OUTSIDE RECORDS SUMMARY | ~2020-02-27 | XMS | Encounter Summary ---
Demographics + + + | Address | [address] | | | [place] [address] | + + + | Home Phone [...] [place], [place] | | | | | [address] | | + + + + + | Ellie Vang | ECON | Unknown | | + + + + + Care Team Providers + +------+ + | Care Cable Cutter And Swager Name | Role | Phone | + [...] | 2014 | Review | Center at [facility] 8826 | MD | Decision | | | | S [facility] | | | | | | [facility] Health and | | | | | | [facility], [place] [address] | | | | | | [place], [place] | | | | | | [address] | | | | | | [phone] | | | +--------+ + + + [...] [address] | | | | | | [place], [place] | | | | | | [address] | | | | | | [phone] | | | | | | | | +--------+ + + + + | 04/04/ | Telephone-S | Surgery | Orquidea Cristobal, | | | 2019 | cheduled | | CORRECTIONS CADET [address] | | | | | | [place] | | | | | | [address] | | | | | | [phone] | | | | | | | | +--------+ + + + + documented as of this encounter Visit Diagnoses Not on filedocumented in this encounter"
--- OUTSIDE RECORDS SUMMARY | ~2020-02-27 | XMS | Encounter Summary ---
Demographics + + + | Address | [address] | | | [place] [address] | + + + | Home Phone [...] [place], [place] | | | | | [address] | | + + + + + | Ellie Vang | ECON | Unknown | | + + + + + Care Team Providers + +------+ + | Care Sld Inclusion Teacher Name | Role | Phone | [...] & | Ave Center | [address] [facility] | | | | | PELVIS W IV | for Health | Hospital, | | | | | CONTRAST | and Healing, | 10th Floor | | | | | | Building [address] | [place], [place] | | | | | | [place], | [address] | | | | | | [place] | Phone: | | | | | | [address] | [phone] | | | | | | Phone: | Fax: | | | | | | [phone] | [phone] | | | | | | Fax: | | | | | | | [phone] | | +--------+--------+ + + + + [...] | | CT ABDOMEN & | e [place] [address] [facility] | | | | | PELVIS W IV | for Health | Hospital, | | | | | CONTRAST | and Healing, | 10th Floor | | | | | | Building [address] | [place], [place] | | | | | | [place], | [address] | | | | | | [place] | Phone: | | | | | | [address] | [phone] | | | | | | Phone: | Fax: | | | | | | [phone] | [phone] | | | | | | Fax: | | | | | | | [phone] | | +--------+--------+ + + + + Encounter Details +--------+ + + + + | Date | Type | Department | Care Team | Description | +--------+ + + + + | 10/07/ | Hospital | Radiology/Imaging | | | | 2012 | Encounter | Lab at [facility] [address] | | | | | [address] [facility] for | | | | | | Health and Healing, | | | | | | Building 1, 3rd | | | | | | Floor [facility] [place] | | | | | | [address] | | | | | | [phone] | | | +--------+ + + + [...] Ave | | | | | | [place], [place] | | | | | | [address] | | | | | | [phone] | | | | | | | | +--------+ + + + + | 04/04/ | Telephone-S | Surgery | Orquidea Cristobal, | | | 2019 | cheduled | | FIBER PRODUCT CUTTING MACHINE OPERATOR [address] | | | | | | [place], [place] | | | | | | [address] | | | | | | [phone] | | | | | | | [...] | | + +---------+ + + | [facility] DEPARTMENT OF | | | | [...] + + | JUSTINE PEÑA | [address] | [place] [address] | | | OF CARE TESTS | | | | + + + + + documented in this encounter Visit Diagnoses + + | Diagnosis | + + | Hernia Hernia of unspecified site of abdominal cavity without mention of obstruction | | or gangrene | + + documented in this encounter"
--- OUTSIDE RECORDS SUMMARY | ~2020-02-27 | XMS | Encounter Summary ---
Demographics + + + | Address | [address] | | | [place] [address] | + + + | Home Phone [...] [place], [place] | | | | | [address] | | + + + + + | Ellie Vang | ECON | Unknown | | + + + + + Care Team Providers + +------+ + | Care Manager Project Management Name | Role | Phone | [...] | | [address] | [place], [place] | | | | | [facility] | [address] | | | | | and [place]rick | [phone] | | | | | [place] [address] | | | | | | [place], [place] | | | | | | [address] | | | | | | [phone] | | | +--------+ + + + [...] [place] | | | | | | [address] | | | | | | [phone] | | | | | | | | +--------+ + + + + | 04/04/ | Telephone-S | Surgery | Orquidea Cristobal, | | | 2020 | sherrill | | FOX FARMER [address] | | | | | | [place] | | | | | | [address] | | | | | | [phone] | | | | | | | | +--------+ + + + + documented as of this encounter Visit Diagnoses Not on filedocumented in this encounter"
--- OUTSIDE RECORDS SUMMARY | ~2020-02-27 | XMS | Encounter Summary ---
Demographics + + + | Address | [address] | | | [place] [address] | + + + | Home Phone [...] [place], [place] | | | | | [address] | | + + + + + | Ellie Vang | ECON | Unknown | | + + + + + Care Team Providers + +------+ + | Care Corporate Licensed Broker Name | Role | Phone | [...] | | | | | essential | [address] | [address] | | | | | hypertension | [address], | Ave | | | | | Type II or | [address] | [place], [place] | | | | | unspecified | [place] | [address] | | | | | type | [address] | Phone: | | | | | diabetes | Phone: | [phone] | | | | | mellitus | [phone] | Fax: | | | | | without | Fax: | [phone] | | | | | mention of | [phone] | | | | | | complication [...] 03/06/ | Office | Cardiology | Randell rFanks, | Type 2 diabetes | | 2013 | Visit | Preventive at [facility] | MD [address] | mellitus (HCC) | | | | [address] | [place], [place] | (Primary Dx) | | | | [facility] | [address] | | | | | and Healing, | [phone] | | | | | [address] | | | | | | [place], [place] | | | | | | [address] | | | | | | [phone] | | | +--------+---------+ + + + [...] Wi ll discuss with Dr. Brian and laminator her best strategies for meeting weight loss [...] | 08/27/ | Office | Cardiology | Rnadell Franks, | | | 2019 | Visit | | MD [address] | | | | | | [place], [place] | | | | | | [address] | | | | | | [phone] | | | | | | | | +--------+ + + + + | 04/04/ | Telephone-S | Surgery | Orquidea Cristobal, | | | 2019 | cheduled | | CURATORIAL ASSISTANT [address] | | | | | | [place], [place] | | | | | | [address] | | | | | | [phone] | | | | | | | [...] [facility] | [address] | [place] [address] | | | SERVICES, SPECIAL | PARK [...]
--- OUTSIDE RECORDS SUMMARY | ~2020-02-27 | XMS | Encounter Summary ---
Demographics + + + | Address | [address] | | | [place] [address] | + + + | Home Phone [...] [place], [place] | | | | | [address] | | + + + + + | Ellie Vang | ECON | Unknown | | + + + + + Care Team Providers + +------+ + | Care Assistant Sales Manager Name | Role | Phone | + +------+ + | Fadi Goodrich DO | PCP | | + +------+ + Encounter Details +--------+ + + + + | Date | Type | Department | Care Team | Description | +--------+ + + + + | 07/06/ | Abstract | Digestive Health | Clinic, Surgery | | | 2016 | | [place] [address] [address] | | | | | | [facility] | | | | | | for Health and | | | | | | [facility] [address] | | | | | | [place], [place] | | | | | | [address] | | | | | | [phone] | | | +--------+ + + + [...] Ave | | | | | | [place], [place] | | | | | | [address] | | | | | | [phone] | | | | | | | | +--------+ + + + + | 04/04/ | Telephone-S | Surgery | Orquidea Cristobal, | | | 2019 | cheduled | | TRACKMOBILE OPERATOR [address] | | | | | | [facility], [place] | | | | | | [address] | | | | | | [phone] | | | | | | | | +--------+ + + + + documented as of this encounter Visit Diagnoses Not on filedocumented in this encounter"
--- OUTSIDE RECORDS SUMMARY | ~2020-02-27 | XMS | Encounter Summary ---
Demographics + + + | Address | [address] | | | [place] [address] | + + + | Home Phone [...] [place], [place] | | | | | [address] | | + + + + + | Ellie Vang | ECON | Unknown | | + + + + + Care Team Providers + +------+ + | Care Educational Aid Name | Role | Phone | [...] | | | | | | [place], [place] | | | | | | [address] | | | | | | [phone] | | | +--------+ + + + [...] Ave | | | | | | [place], [place] | | | | | | [address] | | | | | | [phone] | | | | | | | | +--------+ + + + + | 04/04/ | Telephone-S | Surgery | Orquidea Cristobal, | | | 2019 | sherrill | | TRAFFIC OBSERVER [address] | | | | | | [place], [place] | | | | | | [address] | | | | | | [phone] | | | | | | | | +--------+ + + + + documented as of this encounter Visit Diagnoses Not on filedocumented in this encounter"
--- OUTSIDE RECORDS SUMMARY | ~2020-02-27 | XMS | Encounter Summary ---
Demographics + + + | Address | [address] | | | [place] [address] | + + + | Home Phone [...] [place], [place] | | | | | [address] | | + + + + + | Ellie Vang | ECON | Unknown | | + + + + + Care Team Providers + +------+ + | Care Document Control Specialist Name | Role | Phone | [...] + | 06/23/ | Hospital | [facility] [address] | Kaleb Wilcox MD | | | 2017 | Encounter | [address] | [address] | | | | | [address] | [place], [place] | | | | | [place], | [address] | | | | | [place] [address] | [phone] | | | | | [phone] | | | +--------+ + + + [...] hours or on weekends and holiday Hospital Admittance Attendant toll free [phone]. [phone] and have the GI doctor money market clerk paged. The provider who performed your procedure is: Dr. Wilcox Results of your EGD: Dilation performed. You may resume your regular diet. Follow up Appointments with: Follow up with Dr. Pandey in bariatric surgery, thank you for choosing [facility]! Your primary care provider or referring provider [...] | | 0 | | | | [id number]-GEN | mouth two times | | | [...] Y gastric bypass Sedation: General anesthesia in [facility] Findings: Normal esophagus Normal appearing gastric pouch [...] 2:35 PM PST PRE PROCEDURE NOTE: MR# [id number] Subjective: Elzbieta Cristina is a 43 y.o. [...] [address] | | | | | | [place], [place] | | | | | | [address] | | | | | | [phone] | | | | | | | | +--------+ + + + + | 04/04/ | Telephone-S | Surgery | Orquidea Cristobal, | | | 2019 | cheduled | | SALES ORDER PROCESSOR [address] | | | | | | [place], [place] | | | | | | [address] | | | | | | [phone] | | | | | | | [...] -----+ | MRN: | [facility] | | [id number] Date: 06/23/2018Patient Name: Elzbieta Curtis #: | ENDOSCOP Y | | [id number] of : 1975CSN: [id number] Type: | | | AmbulatoryRoom: SORProcedure: Upper GI | | | endoscopyIndications: Nausea with vomiting, Status post | | | Lblr-ve-TOnbyjdswi: KALEB WILCOX MD (Doctor), JOSE | | | NASIMA, Manager Net | | | (Manager Net)Referring MD: DANIELLE GARCÍAPRequestdonya | | | Provider: [...] | | | The Olympus GIF-[id number] Gastroscope #[id number] was | | | introduced through the [...] endoscope without resistance. The | | | vebns-gz-cctjsww limb was characterized by healthy appearing | [...] | | | 06/23/2018 3:58 [facility] Letter to: FADI GOODRICH DO | [...] NKECHI AMES | [address] | [place], [place] | | | [facility] | [address] | [address] | | | TESTS | | | [...] | | | | | | Until [facility] 06/24/18 at 0027, | | | [...] 06/23/18 at 1532, | | | Until Jasmyne 06/24/18 at 0027, | | | hypopnea | | + +---+ | | | + +---+ | ondansetron (ZOFRAN) injection | | | 4 mg 4 mg, intravenous, | | | POSTPROCEDURE PRN, 1 dose, | | | Starting 06/23/18 at 1532, | | | Until [facility] 06/24/18 at 0027, | | | [...]
--- OUTSIDE RECORDS SUMMARY | ~2020-02-27 | XMS | Encounter Summary ---
Demographics + + + | Address | [address] | | | [place] [address] | + + + | Home Phone [...] [place], [place] | | | | | [address] | | + + + + + | Ellie Vang | ECON | Unknown | | + + + + + Care Team Providers + +------+ + | Care Supervisor Curing Room Name | Role | Phone | [...] [place] | | | | | [facility] | [facility] | | | | | Hospital Admitting | [place] [address] | | | | | Desk Located on the | [phone] | | | | | 9th floor | | | | | | [place], [place] | [place], | | | | | [address] | CENTRAL OFFICE REPAIRER | | +--------+ + + + + Anesthesia Record + + + + + | Procedure Name | Responsible | Anesthesia Start | Anesthesia Stop Time | | | Anesthesiologist | Time | | + + + + + | OPEN VENTRAL HERNIA | Andie Hope MD | 08/19/19 1417 | 08/19/19 7970 | | REPAIR (N/A ) | | [...] | | | , POLINA; Endotracheal | CENTRAL OFFICE REPAIRER | CENTRAL OFFICE REPAIRER | | | Tube; 7.5; Oral; Cuffed; [...] [place] | | | | | | [address] | | | | | | [phone] | | | | | | | | +--------+ + + + + | 04/04/ | Telephone-S | Surgery | Orquidea Cristobal, | | | 2019 | cheduled | | CLOTH TRIMMER HAND [address] | | | | | | [place], [place] | | | | | | [address] | | | | | | [phone] | | | | | | | [...]
--- OUTSIDE RECORDS SUMMARY | ~2020-02-27 | XMS | Encounter Summary ---
Demographics + + + | Address | [address] | | | [place] [address] | + + + | Home Phone [...] [place], [place] | | | | | [address] | | + + + + + | Ellie Vang | ECON | Unknown | | + + + + + Care Team Providers + +------+ + | Care Perinatal Director Name | Role | Phone | [...] 03/03/ | Documentati | NKECHI CARABALLOU at [facility] | Lab, Gi Procedure | Medical Records | | 2019 | on | [facility] | | Review | | | | [address] [facility] | | | | | | Health and Healing, | | | | | | [address] | | | | | | [place], [place] | | | | | | [address] | | | | | | [phone] | | | +--------+ + + + [...] Ave | | | | | | [place], [place] | | | | | | [address] | | | | | | [phone] | | | | | | | | +--------+ + + + + | 04/04/ | Telephone-S | Surgery | Orquidea Cristobal, | | | 2019 | cheduled | | YARD DEMURRAGE CLERK [address] | | | | | | [place], [place] | | | | | | [address] | | | | | | [phone] | | | | | | | | +--------+ + + + + documented as of this encounter Visit Diagnoses Not on filedocumented in this encounter"
--- OUTSIDE RECORDS SUMMARY | ~2020-02-27 | XMS | Encounter Summary ---
Demographics + + + | Address | [address] | | | [place] [address] | + + + | Home Phone [...] [place], [place] | | | | | [address] | | + + + + + | Ellie Vang | ECON | Unknown | | + + + + + Care Team Providers + +------+ + | Care Helpdesk Specialist Name | Role | Phone | + +------+ + | Fadi Goodrich DO | PCP | | + +------+ + Encounter Details +--------+------+ + + + | Date | Type | Department | Care Team | Description | +--------+------+ + + + | 06/16/ | Lab | Laboratory at [facility] | | Morbid obesity with | | 2012 | | [address] | | BMI of 70 and over, | | | | Center for [facility] | | adult (HCC); Vitamin | | | | and Healing, | | D deficiency | | | | [address] | | disease; | | | | [place], [place] | | Intertriginous | | | | [address] | | candidiasis; | | | | [phone] | | Diabetes mellitus | | | [...] | | | | obesity ([facility]); PCOS | | | | | | [...] Ave | | | | | | [place], [place] | | | | | | [address] | | | | | | [phone] | | | | | | | | +--------+ + + + + | 04/04/ | Telephone-S | Surgery | Orquidea Cristobal, | | | 2019 | sherrill | | PROCESS MECHANIC [address] | | | | | | [place], [place] | | | | | | [address] | | | | | | [phone] | | | | | | | [...] | PST | over, adult ([facility]) | results section. | | | | | Vitamin D deficiency | | | | | | disease | | | | | | Intertriginous | | | | | | candidiasis | | | | | | 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| | ([facility]) HTN | | | | | | [...] at | | | | | | [email or web address] Test | | | | | | developed and | | | | | | characteristics | | | | | | determined by | | | | | | [facility]. See | | | | | | Compliance Statement B: | | | | | | [email or web address] | | | | | | by [employer],[address] | | | | | | [address], [facility] | | | | | | [address] | | | | | | [phone].[facility]. | | | | | [...] at | | | | | | [employer] [facility] | | | | | | developed and | | | | | | characteristics | | | | | | determined by | | | | | | [facility]. See | | | | | | Compliance Statement B: | | | | | | Coll[employer]/CS | | | | + + + + + + + + | Specimen | + + | Blood - Blood | + + + + + + + | Performing | Address | City/State/Zipcode | Phone Number | | Organization | | | | + + + + + | [facility] | [address] | [place], [place] | | | [facility] | | [address] | | + + + + + [...]
--- OUTSIDE RECORDS SUMMARY | ~2020-02-27 | XMS | Encounter Summary ---
Demographics + + + | Address | [address] | | | [place] [address] | + + + | Home Phone [...] [place], [place] | | | | | [address] | | + + + + + | Ellie Vang | ECON | Unknown | | + + + + + Care Team Providers + +------+ + | Care Dross Puller Name | Role | Phone | + +------+ + | Fadi Goodrich DO | PCP | | + +------+ + Encounter Details +--------+ + + + + | Date | Type | Department | Care Team | Description | +--------+ + + + + | 12/31/ | Abstract | Digestive Health | Hernandez Brian, | | | 2012 | | [place] [address] [address] | [address] [facility] | | | | | [address] [facility] | [facility] | | | | | for [facility] and | [place], [place] | | | | | [facility] | [address] | | | | | [place], [place] | [phone] | | | | | [address] | | | | | | [phone] | | | +--------+ + + + [...] Ave | | | | | | [place], [place] | | | | | | [address] | | | | | | [phone] | | | | | | | | +--------+ + + + + | 04/04/ | Telephone-S | Surgery | Orquidea Cristobal, | | | 2019 | sherrill | | FLAT SORTING MACHINE CLERK [address] | | | | | | [place], [place] | | | | | | [address] | | | | | | [phone] | | | | | | | | +--------+ + + + + documented as of this encounter Visit Diagnoses Not on filedocumented in this encounter"
--- OUTSIDE RECORDS SUMMARY | ~2020-02-27 | XMS | Encounter Summary ---
Demographics + + + | Address | [address] | | | [place] [address] | + + + | Home Phone [...] [place], [place] | | | | | [address] | | + + + + + | Ellie Vang | ECON | Unknown | | + + + + + Care Team Providers + +------+ + | Care Gasateria Attendant Name | Role | Phone | [...] | 03/01/ | Hospital | [facility] [address] | Ion Castanon, | | | 2018 - | Encounter | [address] | [address] | | | | | [place], [place] | [place], [place] | | | 03/03/ | | [address] | [address] | | | 2017 | | [phone] | [phone] | | | | | | | [...] Gavin ACNP - 03/03/2018 9:49 AM PDT [facility] RED SURGERY INPATIENT DISCHARGE SUMMARY [...] at minimum. 5. Follow with PCP for Landscaper Helper within 1 - 2 weeks of discharge [...] mg by mouth two times daily. CALCIUM CRB&UPS-I4-HTS45-GENIS ORAL Take 2 tablets by mouth two [...] or Kefir, [place] Yogurt, and Chioban i Argentine Yogurt are common brands with beneficial probiotics. [...] are available over the counter at most [facility] [employer] stores. Nausea/Vomiting/Difficulty Swallowing Nausea/Vomiting/Difficulty swallowing: Could be [...] hours per your instructions. Some medications, like Quincy, have Tylenol in it. Make sure you [...] hours by calling the surgery office at [phone]. - After hours, weekends and holidays, you may call the hospital welding machine operator helper gas at [phone] an d have the international banker Red Surgery Team paged. OTHER DISCHARGE ORDERS [...] at minimum. 5. Follow with PCP for Landscaper Helper within 1 - 2 weeks of discharge [...] PM [facility] at [facility] 6th Floor [phone] FO OD AND NUT 03/10/2018 3:05 PM [facility] 6th Floor [phone] [facility] 04/01/2018 10:30 AM [facility] at [facility] 6th Floor [phone] FO OD AND NUT 04/01/2018 11:00 AM Ion Castanon [facility] 6th Floor [phone] [facility] 05/27/2018 2:30 PM [facility] at [facility] 6th Floor [phone] FO OD AND NUT 05/27/2018 3:05 PM [facility] at [facility] 6th Floor [phone] [facility] 05/27/2018 4:30 PM [facility] 15th Floor [phone] Comprehensiv 06/04/2018 10:35 AM Randell Franks [facility] Preventive at [facility] [phone] Cardiology Discharging Physician: KAIN Agee Attending Physician: Ion Castanon MD [facility] Surgery Pager# [phone] 9:50 AM 03/03/2018 documented in this enco [...] | | 0 | | | | [id number]-GEN | mouth two times | | | [...] discharge 03/03/18 PARTHA Calixto MS3 [facility] [employer] Demarcus Menon MD [...] for care ride home (pt lives in [place]) Demarcus Alas M.D. General Surgery Resident PGY-1 Pager: [phone] Ion Ferrari MD - 10:00 AM [address] [...] [address] | | | | | | [place], [place] | | | | | | [address] | | | | | | [phone] | | | | | | | | +--------+ + + + + | 04/04/ | Telephone-S | Surgery | Orquidea Cristobal, | | | 2019 | cheduled | | DATA WAREHOUSE ANALYST [address] | | | | | | [place], [place] | | | | | | [address] | | | | | | [phone] | | | | | | | [...] MARQUAM | [address] | [place], [place] | | | [facility] CARE | [address] | [address] | | | TESTS | | | [...] MARPATAM | [address] | [place], [place] | | | [facility] POINT OF CARE | [address] | [address] | | | TESTS | | | [...] AMES | [address] | [place], [place] | | | [facility]ARE | [facility] | [address] | | | TESTS | | | [...] MARQUAM | [address] | [place], [place] | | | [facility] CARE | [address] | [address] | | | TESTS | | | [...] [place] | [address] | [place], [place] | | | [facility] CARE | [facility] | [address] | | | TESTS | | | [...] 70 - 99 mg/dL | [facility] - | | | GLUCOSE, | [...] AMES | [address] | [place], [place] | | | [facility]ARE | [facility] | [address] | | | TESTS | | | [...] KWAKU | [address] | [place], [place] | | | [facility] DAWN OF JAKY | [address] | [address] | | | TESTS | | | [...] - KW[place]U | [address] | [place], [place] | | | [facility] CARE | [facility] | [address] | | | TESTS | | | [...] 70 - 99 mg/dL | [facility] - | | | GLUCOSE, | [...] AMES | [address] | [place], [place] | | | [facility]ARE | [facility] | [address] | | | TESTS | | | [...] KWAKU | [address] | [place], [place] | | | JUST[facility] DAWN OF JAKY | [address] | [address] | | | TESTS | | | [...] - KWAKU | [address] | [place], [place] | | | [facility] CARE | [facility] | [address] | | | TESTS | | | [...] 70 - 99 mg/dL | [facility] - | | | GLUCOSE, | [...] AMES | [address] | [place], [place] | | | [facility]ARE | [address] | [address] | | | TESTS | | | [...] AMES | [address] | [place], [place] | | | [facility] CARE | [address] | [address] | | | TESTS | | | [...] KWAKU | [address] | [place], [place] | | | JUST[facility] DAWN OF JAKY | [facility] | [address] | | | TESTS | | | [...] 70 - 99 mg/dL | [facility] - | | | GLUCOSE, | [...] YAKOVAM | [address] | [place], [place] | | | [facility] POINT OF CARE | [address] | [address] | | | TESTS | | | [...] KWAKU | [address] | [place], [place] | | | JUSTINE DWAN OF CARE | [facility] | [address] | | | TESTS | | | [...] KWAKU | [address] | [place], [place] | | | [facility] DAWN OF JAKY | [facility] | [address] | | | TESTS | | | [...] 70 - 99 mg/dL | [facility] - | | | GLUCOSE, | [...] KWAKU | [address] | [place], [place] | | | [facility] CARE | [address] | [address] | | | TESTS | | | [...] + + | Performing | Address | City/State[facility] | Phone Number | | Organization | | | | + + + + + | [facility] | [address] | [place], [place] | | | [facility] OF J[place] | [facility] | [address] | | | TESTS | | | [...] KWAKU | [address] | [place], [place] | | | [facility]WN OF J[place] | [facility] | [address] | | | TESTS | | | [...] 70 - 99 mg/dL | [facility] - | | | GLUCOSE, | [...] AMES | [address] | [place], [place] | | | [facility] POINT [facility] CARE | [address] | [address] | | | TESTS | | | [...] KWAKU | [address] | [place], [place] | | | [facility]WN OF J[place] | [address] | [address] | | | TESTS | | | [...] YAK[place]AM | [address] | [place], [place] | | | [facility] [place] | [facility] | [address] | | | TESTS | | | [...] 70 - 99 mg/dL | [facility] - | | | GLUCOSE, | [...] AMES | [address] | [place], [place] | | | [facility] POINT OF CARE | [address] | [address] | | | TESTS | | | [...] KWAKU | [address] | [place], [place] | | | [facility]WN OF JAK[place] | [facility] | [address] | | | TESTS | | | [...] + + | NKECHI AMES | [address] [facility] [address] | [place], [place] | | | [facility] | [address] | [address] | | | TESTS | | | | + + + + + EGD (ESOPHAGOGASTRODUODENOSCOPY) (03/01/2018 11:21 AM PDT) + + + | Narrative | Performed At | + + + | Ion Castanon MD 03/01/2018 12:25 PM Date of Procedure: | | | 03/01/18 Primary Surgeon: Ion Castanon MD Co Surgeon or | | | casino assistant manager: Eldon Gonzalez MD, Chief Resident Alexx [...] The jejunum was divided with 60 mm [place] stapler with white | | | load [...] created in each limb and a 60mm [place] stapler | | | with white load was fired to create a rapo-so-aikx | | | jejunojejunostomy. The anastamosis was confirmed to be widely | | | patent and hemostatic. The common enterotomy was closed by placing | | | 2 stay sutures along the enterotomy for retraction and firing an | | | [place] 60mm stapler with white load across the [...] | | | was entered. The 60mm [place] stapler with blue load was placed | [...] blue load of the 60mm stapler. The [place] was then fired | | | longitudinally towards the angle of His to create the gastric pouch, | | | leaving the gastrotomy from foreign body removal, on the pouch. | | | Dissection was performed retrogastric to connect posterior and | | | anterior dissection planes and ensure adequate fundus exclusion. | | | Additional fires of the [place] stapler were performed with blue | | [...] with | | | 5 mm clip children's librarian. A 25mm Orvil was passed transorally by [...] was closed with 60mm | | | [place] stapler with a white load. Medially and [...] was present | | | as my casino assistant manager for the entire procedure, given the technically | | | challenging nature of this procedure. She assisted in all critical | | | steps of the procedure. Dr. Gonzalez was present for endoscopy at the | | | end of the procedure. Ion Castanon MD, FACS, [facility] | | | Bariatric Surgery | | [...] MD Co Surgeon or | | | casino assistant manager: Eldon Gonzalez MD, Chief Resident Alexx [...] The jejunum was divided with 60 mm [place] stapler with white | | | load [...] created in each limb and a 60mm [place] stapler | | | with white load was fired to create a [id number] | | | jejunojejunostomy. The anastamosis was confirmed to be widely | | | patent and hemostatic. The common enterotomy was closed by placing | | | 2 stay sutures along the enterotomy for retraction and firing an | | | [place] 60mm stapler with white load across the [...] | posterior to the nish limb. A Medication Review liver retractor was | | | placed [...] | | | was entered. The 60mm [place] stapler with blue load was placed | [...] blue load of the 60mm stapler. The [place] was then fired | | | longitudinally towards the angle of His to create the gastric pouch, | | | leaving the gastrotomy from foreign body removal, on the pouch. | | | Dissection was performed retrogastric to connect posterior and | | | anterior dissection planes and ensure adequate fundus exclusion. | | | Additional fires of the [place] stapler were performed with blue | | [...] with | | | 5 mm clip children's librarian. A 25mm Orvil was passed transorally by [...] was closed with 60mm | | | [place] stapler with a white load. Medially and [...] was present | | | as my casino assistant manager for the entire procedure, given the technically | | | challenging nature of this procedure. She assisted in all critical | | | steps of the procedure. Dr. Gonzalez was present for endoscopy at the | | | end of the procedure. Ion Castanon MD, FACS, [facility] | | | Bariatric Surgery | | [...] NKECHI AM[place] | [address] | [place], [place] | | | [facility] | [address] | [address] | | | TESTS | | | [...]
--- OUTSIDE RECORDS SUMMARY | ~2020-02-27 | XMS | Encounter Summary ---
Demographics + + + | Address | [address] | | | [place] [address] | + + + | Home Phone [...] + | Katalina Padilla | ECON | [address] | | | | | [place], [place] | | | | | [address] | | + + + + + | Ellie Vang | ECON | Unknown | | + + + + + Care Team Providers + +------+ + | Care Windows Phone Developer Name | Role | Phone | [...] floor | | | | | | [place], [place] | | | | | | [address] | | | +--------+ + + + [...] | | 2019 | Visit | | [address] | | | | | | [facility] [place] | | | | | | [address] | | | | | | [phone] | | | | | | | | +--------+ + + + + | 04/04/ | Telephone-S | Surgery | Orquidea Cristobal, | | | 2020 | sherrill | | WIND FARM ENGINEER [address] | | | | | | [place] | | | | | | [address] | | | | | | [phone] | | | | | | | | +--------+ + + + + documented as of this encounter Visit Diagnoses Not on filedocumented in this encounter"
--- OUTSIDE RECORDS SUMMARY | ~2020-02-27 | XMS | Encounter Summary ---
Demographics + + + | Address | [address] | | | [place] [address] | + + + | Home Phone | | + + + | Preferred Language | Unknown | + + + | Marital Status | | + + + | Lutheran Affiliation | Unknown | + + + | Race | Unknown | + + + | Ethnic Group | Unknown | + + + Author + + + | Author | [facility] | | | and Jeffana | + + + | Organization | [facility] | | | [...] Providers + +------+ + | Care Tool And Die Designer Name | Role | Phone | + +------+ + PCP | Unavailable | + +------+ + Encounter Details +--------+ + + + + | Date | Type | Department | Care Team | Description | +--------+ + + + + | 07/11/ | Abstract | [facility] | Provider, | | | 2018 | | GASTROENTEROLOGY | MD [facility] [address] | | | | | [address] [facility] | Mayur Blackwell | | | | | [address] | [place] [address] | | | | | [address] | | | | | | [phone] | | | +--------+ + + + [...] | | | | | [place] [address] | | | | | | [phone] | | | | | | | | +--------+ + + + + | 03/29/ | Office | Cardiology | Sulema Altamirano | | | 2019 | Visit | | [address] | | | | | | [address] | | | | | | [place] [address] | | | | | | [phone] | | | | | | | [...] +--------+ + + + | FACTOR V LEIDEN | Routin | 10/04/2018 | | Results [...] | + +---------+ + + External Lab: [facility] (10/04/2018) + + + + + [...] | + +---------+ + + Vitamin B-12 10/04/2018) + +-------+ + + + | Component [...]
--- OUTSIDE RECORDS SUMMARY | ~2020-02-27 | XMS | Encounter Summary ---
Demographics + + + | Address | [address] | | | [place] [address] | + + + | Home Phone [...] + | Katalina Padilla | ECON | [address] | | | | | [place], [place] | | | | | [address] | | + + + + + | Ellie Vang | ECON | Unknown | | + + + + + Care Team Providers + +------+ + | Care Claims Manager Name | Role | Phone | [...] incarcerated | | 2012 | | PRINCE [facility] | [address] [facility] | ventral hernia; | | | | [address] [facility] | [facility] [address] | possible bowel | | | | Hospital Admitting | [place], [place] | resection; | | | | Desk Located on the | [address] | | | | | 9th floor | [phone] | | | | | [place], [place] | | | | | | [address] | | | +--------+---------+ + + + [...] yuriy tral hernia. She was transferred from [place] for surgical evaluation of possible incarcer ated [...] Cipro. POD 5 she was discharged ho [place], tolerating a diabetic diet. Having bowel function. [...] yuriy tral hernia. She was transferred from [place] for surgical evaluation of possible incarcer ated [...] Cipro. POD 5 she was discharged ho [place], tolerating a diabetic diet. Having bowel function. [...] keeping you from eating and drinking, Call [phone]. It is important to stay hydrated! If [...] taking narcotic that contain Tylenol (acetaminophen) Example: [place], Lortab, Vicodin, hydrocodone/APAP, Percocet, Tylenol #3 PAIN MEDICATIONS are ONLY REFILLED during CLINIC APPOINTMENTS. Please call [phone] to schedule an appointment. Your Follow-Up Plan Follow up with ROBIN MEJIA in 2 weeks. Contact information: [address] [facility] [address] Vitals on discharge: Ht 154.9 cm (5' [...] be different f rom the original. [facility] DEPARTMENT OF SURGERY EMERGENCY GENERAL SURGERY Division [...] without erythema and no infecti on noted. [place] intact : good urine output and Patient [...] clinic - [place] [address] pager number [place] [phone] [facility] [phone] Aminta Goodwin Md - 11/11/2012 7:40 AM PDT [facility] DEPARTMENT OF SURGERY EMERGENCY GENERAL SURGERY Division of Trauma and Critical Care Attending Physician: Andie Brian MD Progress Note Note Date: 11/11/2012 Admission Date: 11/06/2012 DYLAN ROMERO, [id number] Hospital Day #5 INTERVAL EVENTS none acute [...] mg, Rectal, DAILY PRN, Aminta Wilson MD eefrmktmxg-lburdnvqfdgwe-qpwkxpan (aka FIORICET) 50-325-40 mg 1 Tab, 1 [...] Jayne Ponce MD, 1 mg at 11/10/12801 ueveioqibb-iunlpxiqalwhk-bhxdasou (aka FIORICET) 50-325-40 mg 1 Tab, 1 [...] in preservative free NaCl 0.9% 50 mL FRONT DESK OFFICER infusion, , Intravenous, KIESHA NUOUS, Aracely Flores [...] diet -add bowel regimen Acute pain -HM FRONT DESK OFFICER, tylenol -convert to oral pain medication once [...] Fluids: LR 125ml/hr Feeding: NPO Analgesia: Dilaudid FRONT DESK OFFICER Sedation: not indicated Thromboprophylaxis: enoxaparin Head of [...] Ponce MD, 1 mg at 11/09/12 0855 ykkrqzignf-gygozifjcqgiu-tuxobrdm (aka FIORICET) 50-325-40 mg 1 Tab, 1 [...] in preservative free NaCl 0.9% 50 mL FRONT DESK OFFICER infusion, , Intravenous, KIESHA NUOUS, Aracely Flores [...] (aka MYCOSTATIN) powder, , Topical, BID, Danny Lgaos MD olanzapine (aka ZYPREXA) tablet 30 mg, [...] drainage <30ml for 24hrs Acute pain -HM FRONT DESK OFFICER, tylenol Diabetes: -insulin gtt not started due [...] Fluids: LR 125ml/hr Feeding: NPO Analgesia: Dilaudid FRONT DESK OFFICER Sedation: not indicated Thromboprophylaxis: enoxaparin Head of bed: > 30 Ulcer prophylaxis: pepcid Glycemic control: adequate Activity/PT/OT: Ongoing Yogurt: ABX on Probiotics:yes AMINTA WILSON MD General Surgery, R1 aleb Walker S, N P - 11/08/2012 8:49 AM PDT [facility] DEPARTMENT OF SURGERY EMERGENCY GENERAL SURGERY Division of Trauma and Critical Care Attending Physician: Andie Brian MD Progress Note Note Date: 11/08/2012 Admission Date: 11/06/2012 DYLAN ROMERO, [id number] Hospital Day #2 INTERVAL EVENTS NO SUBJECTIVE Pain well controlled; has headache attributed to dilaudid FRONT DESK OFFICER Tylenol did not help. Flatus: YES Tolerating [...] trials today. -DC ruiz Acute pain -HM FRONT DESK OFFICER, tylenol Diabetes: -insulin gtt not started due [...] Fluids: LR 125ml/hr Feeding: NPO Analgesia: Dilaudid FRONT DESK OFFICER Sedation: not indicated Thromboprophylaxis: enoxaparin Head of bed: > 30 Ulcer prophylaxis: pepcid Glycemic control: adequate Activity/PT/OT: Ongoing Yogurt: ABX on Probiotics: No KALEB WALKER NP [facility] [address] [place] [facility] elvin Stephens MD - 11/07/2012 9:51 [...] 7.33* PCO2 49* PO2 113* HCO3 25 [id number] 26 E3NVZVXN 98.3* G3TBWASFN -- FIO2 60 ABGEXCESS -0.9 Assessment, Medical Decision Making and Plan 1. Incarcerated hernia, now s/p repair and panniculectomy -Binder, pain control, minimize nausea and coughing PRN. -NG clamping trials today. 2. Acute pain -HM FRONT DESK OFFICER, tylenol 3. Diabetes: -insulin gtt 4. Morbid [...] Dione Grimes MD R-2, General Surgery Pager: [phone] [facility] [place] Department of Surgery Trauma ICU Team Pager (24hrs/day): [phone] I was present with the resident during the history and exam. I discussed the case with the resident and agree with the findings and plan as documented in the resident s note. KELVIN STEPHENS MD [facility] [address] [facility] [place] [address] [id number] Onur Graves MD - 11/07/2012 2:37 AM [...] in preservative free NaCl 0.9% 50 mL FRONT DESK OFFICER infusion Intravenous CON TINUOUS Aracely Flores, DO [...] POD#1 s/p primary repair. 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 building rigger and prn tylenol, continue prozac and zyprexa [...] F: probable remain NPO today A: dilaudid building rigger, prn tylenol S: prn benzos as she is at home T: will start prophylactic lovenox today H: HOB >30 degrees U: pepcid G: insulin gtt ONUR ALLEN MD, PGY3 [place] [address] [facility] [address] [id number] [place] [address] Onelia Shrestha MD - 11/06/2012 8:41 AM PDT [facility] DEPARTMENT OF SURGERY Division of Trauma and Critical Care Emergency General Surgery / Acute Care Surgery Attending Physician: Andie Brian MD Note Date: 11/06/2012 Admission Date: 11/06/2012 DYLAN ROEMRO, [id number] Hospital Day #0 OVERNIGHT EVENTS: anxious SUBJECTIVE: [...] wwp LABS: reviewed and are available in [facility] (if new data) IMAGING: VASCULAR: IMPRESSION: [...] [place] | | | | | | [address] | | | | | | [phone] | | | | | | | | +--------+ + + + + | 04/04/ | Telephone-S | Surgery | Orquidea Cristobal, | | | 2019 | cheduled | | DIRECTOR AUTOMOTIVE [address] | | | | | | [place], [place] | | | | | | [address] | | | | | | [phone] | | | | | | | [...] Mae | | | | | | Lomira | | | | + + + [...] AMES | [address] | [place], [place] | | | [place] POINT OF CARE | [address] | [address] | | | TESTS | | | [...] MARQU[facility] | [address] | [place], [place] | | | [place] POINT OF CARE | [address] | [address] | | | TESTS | | | [...] [facility] | [address] | [place] [address] | | | SERVICES, CORE | PARK [...] | [facility] | [address] | [place] [address] | | | SERVICES, CORE | CLARENCE [...] [facility] | [address] | [place] [address] | | | CLAIRE, LYDIA | PARK [...] [facility] | [address] | [place], [place] | | | JUSTINE DAWN OF CARE | [address] | [address] | | | TESTS | | | [...] [facility] | [address] | [place], [place] | | | [place] POINT OF [facility] | [address] | [address] | | | TESTS | | | [...] AMES | [address] | [place], [place] | | | JUSTINE DAWN OF JAKY | [facility] | [address] | | | TESTS | | | [...] [facility] | [address] | [place], [place] | | | JUSTINE DAWN OF CARE | [address] | [address] | | | TESTS | | | [...] + + | [facility] | [address] | [place], [place] | | | JUSTINE DAWN OF [facility] | [address] | [address] | | | TESTS | | | [...] | [facility] | [address] [facility] | [place] [address] | | | SERVICES, CORE | PARK [...] the MDRD equation recommended by the | [facility] | | National Kidney Disease Education Program. [...] + + + + + | [facility] | [address] [facility] | [place] [address] | | | LYDIA RANGEL | CLARENCE [...] HOSPITAL LABORATORY | [address] | [place] [address] | | | SERVICES, CORE | CLARENCE [...] AMES | [address] | [place], [place] | | | JUSTINE DAWN OF CARE | [address] | [address] | | | TESTS | | | [...] MARQUAM | [address] | [place], [place] | | | JUSTINE DAWN OF JAKY | [facility] | [address] | | | TESTS | | | [...] KWAKU | [address] | [place], [place] | | | JUSTINE DAWN OF CARE | [address] | [address] | | | TESTS | | | [...] AMES | [address] | [place], [place] | | | [place] POINT OF CARE | [address] | [address] | | | TESTS | | | [...] MARQU[facility] | [address] | [place] | | | JUSTINE DAWN OF JAKY | [address] | [address] | | | TESTS | | | [...] | [facility] | [address] [facility] | [place] [address] | | | SERVICES, CORE | PARK [...] [facility] | [address] | [place] [address] | | | SERVICES, CORE | PARK [...] + + + + + | [facility] | [address] | [place] [address] | | | SERVICES, CORE | CLARENCE [...] MARQU[facility] | [address] | [place], [place] | | | JUSTINE DAWN OF CARE | [address] | [address] | | | TESTS | | | [...] - [facility] | [address] | [place], [place] | | | JUSTINE DAWN OF CARE | [facility] | [address] | | | TESTS | | | [...] AMES | [address] | [place], [place] | | | JUSTINE DAWN OF CARE | [address] | [address] | | | TESTS | | | [...] | SOURCE BODY | Urine | | [facility] - | | | SITE | | | AIR[facility] - | | | | | | [place] | | + + + + + + | CULTURE | C UrineSource: Urine | | [facility] - | | | RESULT | | | AIRPORT - | | | | Final CULTURE | | [place] | | | | RESULT:>100,000 cfu/ml | [...] + | [facility] - | [address] | [place] [address] | | | [place] | | | | + + + [...] + + + + + | [facility] | [address] | [place] [address] | | | SERVICES, CORE | CLARENCE [...] HOSPITAL LAB[facility]ORY | [address] | [place] [address] | | | SERVICES, CORE | CLARENCE [...] 90 | 60 - 99 mg/dL | [facility] [...] AMES | [address] | [place] | | | L[place]PEZ POINT OF CARE | [address] | [address] | | | TESTS | | | [...] | [facility] | [address] | [place] [address] | | | LYDIA RANGEL | CLARENCE [...] [facility] | [address] | [place] [address] | | | SERVICES, CORE | PARK [...] | [facility] | [address] | [place] [address] | | | SERVICES, CORE | CLARENCE [...] AMES | [address] | [place], [place] | | | JUSTINE DAWN OF JAKY | [address] | [address] | | | TESTS | | | [...] + + | [facility] | [address] | [place], [place] | | | JUSTINE DAWN OF CARE | [address] | [address] | | | TESTS | | | [...] KW[facility] | [address] | [place] | | | L[place] POINT OF [facility] | [address] | [address] | | | TESTS | | | [...] HOSPITAL LAB[facility]ORY | [address] | [place] [address] | | | SERVICES, CORE | PARK [...] + + + + + | [facility] | [address] [facility] | [place] [address] | | | SERVICES, CORE | CLARENCE [...] | [facility] | [address] | [place] [address] | | | LYDIA RANGEL | PARK [...] - [facility] | [address] | [place], [place] | | | L[place]PE[place] POINT OF CARE | [address] | [address] | | | TESTS | | | [...] AMES | [address] | [place], [place] | | | JUSTINE DAWN OF JAKY | [address] | [address] | | | TESTS | | | [...] [facility] | [address] | [place] | | | L[place] POINT OF CARE | [address] | [address] | | | TESTS | | | [...] [facility] | [address] | [place] [address] | | | SERVICES, CORE | PARK [...] [facility] | [address] | [place] [address] | | | SERVICES, CORE | PARK [...] + + + + + | [facility] | [address] | [place] [address] | | | SERVICES, LYDIA | [address] | | | + + + + + X-RAY PORTABLE CHEST 1 VIEW (11/06/2012 4:46 PM PDT) + + + + + + | Component | Value | Ref Range | Performed | Pathologist | | | | | At | Signature | + + + + + + | X-RAY | STUDY: WI CHEST 1 VIEW | | | | | PORTABLE | 11/06/12 16:46:00 | | | | | CHEST 1 | INDICATION: Right upper | | | | | VIEW | lobe opacity. | | | | | | COMPARISON: Earlier same | | | | | | day a STUDY: WI CHEST 1 | | | | | [...] + + + | X-RAY | STUDY: [place] CHEST 1 VIEW | | | | [...] [facility] | [address] | [place] [address] | | | SERVICES, CORE | PARK [...] + + + + + | [facility] | [address] [facility] | [place] [address] | | | SERVICES, CORE | PARK [...] + + + + + | [facility] | [address] | [place] [address] | | | SERVICES, CORE | CLARENCE [...] [facility] | [address] | [place], [place] | | | L[place]PEZ POINT OF CARE | [address] | [address] | | | TESTS | | | [...] [facility] | [address] | [place], [place] | | | L[place] POINT OF CARE | [address] | [address] | | | TESTS | | | [...] - [facility] | [address] | [place], [place] | | | JUSTINE DAWN OF CARE | [address] | [address] | | | TESTS | | | [...] AMES | [address] | [place], [place] | | | JUSTINE DAWN OF CARE | [address] | [address] | | | TESTS | | | [...] [facility] | [address] | [place] | | | JUSTINE DAWN OF JAKY | [address] | [address] | | | TESTS | | | [...] [facility] | [address] | [place], [place] | | | JUSTINE DAWN OF JAKY | [address] | [address] | | | TESTS | | | [...] AMES | [address] | [place], [place] | | | L[place]PEZ POINT OF CARE | [address] | [address] | | | TESTS | | | [...] [facility] | [address] | [place], [place] | | | JUSTINE DAWN OF JAKY | [address] | [address] | | | TESTS | | | [...] - [facility] | [address] | [place], [place] | | | JUSTINE DAWN OF CARE | [address] | [address] | | | TESTS | | | [...] + + + | [facility] | [address] | [place], [place] | | | L[place]PEZ POINT OF CARE | [address] | [address] | | | TESTS | | | [...] [facility] | [address] | [place], [place] | | | L[place]PEZ POINT OF CARE | [address] | [address] | | | TESTS | | | [...] + + + + + | [facility] | [address] | [place] [address] | | | SERVICES, | [address] [...] [facility] | [address] | [place], [place] | | | JUSTINE DAWN OF CARE | [address] | [address] | | | TESTS | | | [...] [facility] | [address] | [place] [address] | | | SERVICES, | [address] [...] + + + + + | [facility] | [address] | [place] [address] | | | SERVICES, | [address] [...] [facility] | [address] | [place] [address] | | | SERVICES, CORE | PARK [...] HOSPITAL LABORATORY | [address] | [place] [address] | | | SERVICES, CORE | PARK [...] | + + + + + | [employer] [facility] | [address] | [place] [address] | | | SERVICES, CORE | PARK [...] + + + + + | [facility] | [address] [facility] | [place] [address] | | | SERVICES, CORE | PARK [...] | + + + + + | [facility] | [address] | [place] [address] | | | SERVICES, CORE | [address] | | | + + + + + 12 LEAD ECG (11/06/2012 5:17 AM PDT) + + + + + + | Component | Value | Ref Range | Performed | Pathologist | | | | | At | Signature | + + + + + + | VENTRICULAR | 96 | BPM | [facility] | | | RATE | [...] view image for the detailed interpretation from [facility] results. | CARDIOLOGY | + + + + + + + + | Performing | Address | City/State/Zipcode | Phone Number | | Organization | | | | + + + + + | [facility] | [address] | [place], [place] | | | CARDIOLOGY | [address] | [address] | | + + + + + [...] + + + + + | [facility] | [address] | [place] [address] | | | SERVICES, CORE | CLARENCE [...] [facility] | [address] | [place] [address] | | | SERVICES, CORE | [address] | | | + + + + + documented in this encounter Visit Diagnoses + + | Diagnosis | + + | Incarcerated ventral hernia Ventral hernia, unspecified, with obstruction | + + documented in this encounter
--- OUTSIDE RECORDS SUMMARY | ~2020-02-27 | XMS | Encounter Summary ---
Demographics + + + | Address | [address] | | | [place] [address] | + + + | Home Phone [...] [place], [place] | | | | | [address] | | + + + + + | Ellie Vang | ECON | Unknown | | + + + + + Care Team Providers + +------+ + | Care Film Laboratory Technician Name | Role | Phone | + +------+ + | Fadi Goodrich DO | PCP | | + +------+ + Encounter Details +--------+ + + + + | Date | Type | Department | Care Team | Description | +--------+ + + + + | 12/31/ | Abstract | [facility] | Hernandez Brian, | | | 2012 | | [place] [address] | [address] [facility] | | | | | [facility] | [facility] | | | | | for [facility] and | [place], [place] | | | | | [facility] [address] | [address] | | | | | [place], [place] | [phone] | | | | | [address] | | | | | | [phone] | | | +--------+ + + + [...] Ave | | | | | | [place], [place] | | | | | | [address] | | | | | | [phone] | | | | | | | | +--------+ + + + + | 04/04/ | Telephone-S | Surgery | Orquidea Cristobal, | | | 2019 | sherrill | | TOWER OPERATOR [address] | | | | | | [place], [place] | | | | | | [address] | | | | | | [phone] | | | | | | | | +--------+ + + + + documented as of this encounter Visit Diagnoses Not on filedocumented in this encounter"
--- OUTSIDE RECORDS SUMMARY | ~2020-02-27 | XMS | Encounter Summary ---
Demographics + + + | Address | [address] | | | [place] [address] | + + + | Home Phone [...] [place], [place] | | | | | [address] | | + + + + + | Ellie Vang | ECON | Unknown | | + + + + + Care Team Providers + +------+ + | Care Medical Staff Services Manager Name | Role | Phone | + +------+ + | Fadi Goodrich DO | PCP | | + +------+ + Encounter Details +--------+------+ + + + | Date | Type | Department | Care Team | Description | +--------+------+ + + + | 11/20/ | Lab | Laboratory at [facility] | | Morbid obesity with | | 2017 | | [address] | | BMI of 70 and over, | | | [facility] | | adult ([facility]); | | | | and Healing, | | 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Building [address] | | 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[place], [place]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 ([facility]); | | | | [address] | | Type 2 diabetes | | | | [phone] | | mellitus without | | | | | | complication, with | | | | | | long-term current | | | | | | use of insulin ([facility]) | +--------+------+ + + + Social History [...] Ave | | | | | | [place], [place] | | | | | | [address] | | | | | | [phone] | | | | | | | | +--------+ + + + + | 04/04/ | Telephone-S | Surgery | Orquidea Cristobal, | | | 2019 | cheduled | | BACTERIOLOGY RESEARCH ASSISTANT [address] | | | | | | [place], [place] | | | | | | [address] | | | | | | [phone] | | | | | | | [...] | | | PDT | over, adult ([facility]) | results section. | | | | | 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| | 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 ([facility]) | | + +--------+ + + + | VITAMIN B1, WHOLE | Routin | 11/20/2017 | Morbid obesity | Results for this | | BLOOD | e | 10:01 AM | with BMI of 70 and | procedure are in the | | | | PDT | over, adult ([facility]) | results section. | | | | | 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| | 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 ([facility]) | | + +--------+ + + + | VITAMIN D, | Routin | 11/20/2017 | Morbid obesity | Results for this | | 25-HYDROXY, SERUM | e | 10:01 AM | with BMI of 70 and | procedure are in the | | | | PDT | over, adult ([facility]) | results section. | | | | | 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| | 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 ([facility]) | | + +--------+ + + + | COMPLETE METABOLIC | Routin | 11/20/2017 | Morbid obesity | Results for this | | SET | e | 10:01 AM | with BMI of 70 and | procedure are in the | | (NA,K,CL,CO2,BUN,CRE | | PDT | over, adult ([facility]) | results section. | | AT,GLUC,CA,AST,ALT,B | | | Diabetes mellitus | | | MARGIE TOTAL,ALK | | | type 2 without | | | PHOS,ALB,PROT TOTAL) |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 ([facility]) | | + +--------+ + + + | CBC ONLY | Routin | 11/20/2017 | Morbid obesity | Results for this | | | e | 10:01 AM | with BMI of 70 and | procedure are in the | | | | PDT | over, adult ([facility]) | results section. | | | | | 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| | 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 ([facility]) | | + +--------+ + + + | FERRITIN | Routin | 11/20/2017 | Morbid obesity | Results for this | | | e | 10:01 AM | with BMI of 70 and | procedure are in the | | | | PDT | over, adult ([facility]) | results section. | | | | [...] | | | PDT | over, adult ([facility]) | results section. | | | | | 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| | 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 ([facility]) | | + +--------+ + + + | VITAMIN B-12 | Routin | 11/20/2017 | Morbid obesity | Results for this | | | e | 10:01 AM | with BMI of 70 and | procedure are in the | | | | PDT | over, adult ([facility]) | results section. | | | | | 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| | 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 ([facility]) | | + +--------+ + + + [...] [facility] | [address] | [place] [address] | | | [facility] | | | | | HEALTH + [...] | + + + + + | [facility] | [address] | [place], [place] | | | SERVICES, LIPID | [address] | [address] | | + + + + + [...] | [facility] | | considered for monitoring longterm glycemic control in patients with: | LABORATORY [...] [facility] | [address] | [place] [address] | | | SERVICES, SPECIAL | CLARENCE [...] B: | | | | | | [employer]ner[employer]/CSPerformed | | | | | | by [facility],[address] | | | | | | Natalia Martinez, [facility] [place] | | | | | | [id number] | | | | | | [phone].[email or web address]. | | | | | | Ismael [...] REG | [address] | [place], [place] | | | [facility] | | [address] | | + + + + + [...] | | | LABORATORY | | | VINCENTIAN | | | SERVICES, | | | [...] [facility] | [address] | [place] [address] | | | LYDIA RANGEL | CLARENCE [...] [facility] | [address] | [place] [address] | | | SERVICES, CORE | PARK [...] [facility] | [address] | [place] [address] | | | CLAIRE, LYDIA | CLARENCE [...] + | [facility] | [address] | [place] [address] | | | SERVICES, CORE | CLARENCE [...] [facility] | [address] | [place] [address] | | | SERVICES, CORE | PARK [...] LABORATORY | | | | | | CLIARE, | | | | | | CORE [...] + + + + + | [facility] | [address] | [place] [address] | | | SERVICES, CORE | PARK [...]
--- OUTSIDE RECORDS SUMMARY | ~2020-02-27 | XMS | Encounter Summary ---
Demographics + + + | Address | [address] | | | [place] [address] | + + + | Home Phone [...] [place], [place] | | | | | [address] | | + + + + + | Ellie Vang | ECON | Unknown | | + + + + + Care Team Providers + +------+ + | Care Lap Winding Machine Operator Name | Role | Phone [...] | | | | | | | [address] | | | | | | | [address] | | | | | | | [place], | | | | | | | [place] | | | | | | | [address] | | | | | | | Phone: | | | | | | | [phone] | | | | | | | Fax: | | | | | | | [phone] | +--------+--------+ + + + + Encounter Details +--------+---------+ + + + | Date | Type | Department | Care Team | Description | +--------+---------+ + + + | 04/14/ | Office | Digestive Health | Hernandez Brian, | Morbid obesity (HCC) | | 2013 | Visit | Center at [facility] [address] | [address] | (Primary Dx); Type | | | | [address] | [address] | 2 diabetes mellitus | | | | for [facility] and | [place], [place] | ([facility]); AMARA | | | | [place] [address] | [address] | (obstructive sleep | | | | [facility] [place] | [phone] | apnea); Edema | | | | [address] | | | | | | [phone] | | | +--------+---------+ + + + [...] this year, she was tr ansferred from [place] for surgical evaluation of possible incarcerated ventral [...] with close followup by her PCP in [place] in the interim. Dr. Guillory in [place] has been following her since January, with CT scan obtained at [facility] in [place] 02/09/2013 (images in IMPAX), demonstrating "recurrent hypogastric [...] to follow up with her providers at [facility] to include a visi t to our [...] r weight loss efforts. She saw a voltage tester today and Melida came in to discuss [...] and well perfused. 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 There is a well [...] Ave | | | | | | [place], [place] | | | | | | [address] | | | | | | [phone] | | | | | | | | +--------+ + + + + | 04/04/ | Telephone-S | Surgery | Orquidea Cristobal, | | | 2019 | cheduled | | HYDRATION PLANT OPERATOR [address] | | | | | | [place], [place] | | | | | | [address] | | | | | | [phone] | | | | | | | | +--------+ + + + + documented as of this encounter Visit Diagnoses + + | Diagnosis | + + | Morbid obesity (HCC) - Primary Morbid obesity | + + | Type 2 diabetes mellitus ([facility]) Type II or unspecified type diabetes mellitus without | | mention of complication, not stated as uncontrolled | + + | AMARA (obstructive sleep apnea) Obstructive sleep apnea (adult) (pediatric) | + + | Edema | + + documented in this encounter
--- OUTSIDE RECORDS SUMMARY | ~2020-02-27 | XMS | Encounter Summary ---
Demographics + + + | Address | [address] | | | [place] [address] | + + + | Home Phone [...] [place], [place] | | | | | [address] | | + + + + + | Ellie Vang | ECON | Unknown | | + + + + + Care Team Providers + +------+ + | Care C T Tech Name | Role | Phone | [...] floor | | | | | | [place], [place] | | | | | | [address] | | | +--------+ + + + [...] Ave | | | | | | [place], [place] | | | | | | [address] | | | | | | [phone] | | | | | | | | +--------+ + + + + | 04/04/ | Telephone-S | Surgery | Orquidea Cristobal, | | | 2019 | cheduled | | TOBACCO PREVENTION HEALTH EDUCATOR [address] | | | | | | [place], [place] | | | | | | [address] | | | | | | [phone] | | | | | | | | +--------+ + + + + documented as of this encounter Visit Diagnoses Not on filedocumented in this encounter"
--- OUTSIDE RECORDS SUMMARY | ~2020-02-27 | XMS | Encounter Summary ---
Demographics + + + | Address | [address] | | | [place] [address] | + + + | Home Phone [...] [place], [place] | | | | | [address] | | + + + + + | Ellie Vang | ECON | Unknown | | + + + + + Care Team Providers + +------+ + | Care Moving Picture Producer Name | Role | Phone | + +------+ + | Fadi Goodirch DO | PCP | | + +------+ + Encounter Details +--------+ + + + + | Date | Type | Department | Care Team | Description | +--------+ + + + + | 11/04/ | Telephone | [facility] | Leslie Mistry, | | | 2017 | | [address] | PhD [address] [facility] | | | | | [facility] | [facility] | | | | | and Healing, | [place], [place] | | | | | [facility] | [address] | | | | | Floor [place], [place] | [phone] | | | | | [address] | | | | | | [phone] | | | +--------+ + + + [...] Ave | | | | | | [place], [place] | | | | | | [address] | | | | | | [phone] | | | | | | | | +--------+ + + + + | 04/04/ | Telephone-S | Surgery | Orquidea Cristobal, | | | 2019 | cheduled | | SENIOR INTERACTIVE DEVELOPER [address] | | | | | | [place], [place] | | | | | | [address] | | | | | | [phone] | | | | | | | | +--------+ + + + + documented as of this encounter Visit Diagnoses Not on filedocumented in this encounter"
--- OUTSIDE RECORDS SUMMARY | ~2020-02-27 | XMS | Encounter Summary ---
Demographics + + + | Address | [address] | | | [place] [address] | + + + | Home Phone [...] [place], [place] | | | | | [address] | | + + + + + | Ellie Vang | ECON | Unknown | | + + + + + Care Team Providers + +------+ + | Care Child Welfare Director Name | Role | Phone | [...] | obstruction | [address] | [address] [place], | | | | | or gangrene | Rd | [place] | | | | | | [place], [place] | [address] | | | | | Incarcerated | [address] | Phone: | | | | | ventral | Phone: | [phone] | | | | | hernia | [phone] | Fax: | | | | | Procedures | Fax: | [phone] | | | | | REQUEST TO | [phone] | | | | | | SURGERY | | | | | | | FIELD SERVICE SPECIALIST | | | | | | | AL REPAIR | | | | | | | INCISIONAL | | | | | | | HERNIA,STRAN | | | | | | | G AL REPAIR | | | | | | | INCIS | | | | | | | HERNIA W | | | | | | | MESH AL | | | | | | | MUSCLE-SKIN | | | | | | | FLAP,TRUNK | | | | | | | AL | | | | | | | MUSCLE-SKIN | | | | | | | FLAP,TRUNK | | | | | | | AL REPAIR | | | | | | | INCISIONAL | | | | | | | HERNIA,REDUC | | | | | | | IBLE AL | | | | | | | REPAIR INCIS | | | | | | | HERNIA W | | | | | | | MESH AL | | | | | | | REPAIR | | | | | | | RECURR INCIS | | | | | | | | | | | | | | HERNIA,STRAN | | | | | | | G AL REPAIR | | | | | | | INCIS | | | | | | | HERNIA W | | | | | | | MESH AL | | | | | | | REPAIR | | | | | | | RECURR INCIS | | | | | | | | | | | | | | HERNIA,REDUC | | | | | | | AL REPAIR | | | | | | [...] | | | | | obstruction | [place], | for Health | | | | | or gangrene | [place] | and Healing, | | | | | Abdominal | [address] | [address] | | | | | pain, | Phone: | [place], [place] | | | | | unspecified | [phone] | [address] | | | | | abdominal | Fax: | Phone: | | | | | location | [phone] | [phone] | | | | | Procedures | | Fax: | | | | | CONSULT TO | | [phone] | | | | | SURGERY - [...] | 2019 | Visit | Center at [facility] [address] | [address] | without obstruction | | | | [address] [facility] | [address] | or gangrene (Primary | | | | for Health and | [place], [place] | Dx) | | | | Healing, [address] | [address] | | | | | [place], [place] | [phone] | | | | | [address] | | | | | | [phone] | | | +--------+---------+ + + + [...] (1?2 cup) 6.5 Avocado 1?2 fruit 2.1 [place] sprouts, cooked 125 mL (1?2 cup) 2.0 Figs, dried 60 mL (1?4 cup) 1.9 [place] 1 medium 1.8 Sweet Potato, cooked, without [...] 1.3 Eggplant 125 mL (1?2 cup) 1.3 [place], with skin 1 medium 1.0-1.3 Peas, green, cooked 125 mL (1?2 cup) 0.8-1.3 Carrot, cooked [place] 125 mL (1?2 cup) 1?2 fruit 1.1-1.2 0.7-1.1 Grapefruit 1?2 fruit 0.7-1.1 Prunes, dried 3 1.1 [place], with skin 2 fruits 1.1 Apricots, dried [...] Bread, rye 35 g (1 slice) 0.6-1.0 [place] bread crackers 3 crackers 0.9 Raisin bran [...] of Soluble Fiber [email or web address] PATIENT SURGERY INFORMATION [facility] General Surgery Office Toll-free: ext [phone] Surgery Date: Monday, July 08, 2019 Surgery [...] will be scheduled with you by a freight handler. You will receive a ca ll within [...] ease call the General Surgery Office at [phone] for [id number]. Check-in on the day of surgery is at the Admitting Department located on the 9th floor of [facility]. DIET Nothing to eat or drink [...] the surgery. Please see the list below, [facility] has a list of products that [...] contact our office . Products Containing Aspirin Yuki-Norton, Anacin, Anexsia with Codeine, Andynos, Aspirin, Aspirin suppositories, Ascrip tin, Aspergum, Axotal, B-A-C, Baby Aspirin, Lucila, BC Powder, Bexophene, Buffaprin, Bufferin , Buffinol, Cama-Arthritis Strength, Congespirin, [place], Coricidin, Damason, Darvon, Dristan, Kalani-Gesic, Digel, Dolprin #3 Tablets, Donatab, Doxaphene, Duragesic, Easprin, Ecotrin, Emag rin Forte, Emiprin, Emprazil, Equagesic, Equazine M, Excedrin, Fiogesic, Fiorgen PH, Fiorice t, Fiorinal, 4-Way Cold Tablet, Gemnisyn, Indocin, Liquprin, Lortab ASA, Magnaprin, Marnal, Meprobamate, Midol, Momentum, Norgesic, Niagara, Orphengesic, Pabalate, P-A-C, Percodan, Pre salin, Robaxasil, Roxiprin, Saleto, Salocol, SK-65 Compound, Sine-Aid, Sine-Off, Gulf, Supac, Talwin Compound, Trigesic, Tolectin, Traiminicin, Vanquish, ZORprin, Zomax Products Containing Ibuprofen Advil, Aleve, Haltran, Medipren, Midol, Motrin, Naproxyn, Nuprin, Rufen Herbal Medications Ephedra: discontinue 24 hours before surgery Garlic: discontinue 7 days prior to surgery Ginkgo: discontinue 36 hours prior to surgery Ginseng: discontinue 7 days prior to surgery Kava: discontinue 24 hours prior to surgery [place] s Wort: discontinue 5 days prior to surgery Valerian: discontinue several weeks prior to surgery Other Products Which May Promote Bleeding Vitamin E, Gingko Biloba, Marine Fatty Acids, [place]-3 Fish Oil Supplement PRE-OP BATHING/SHOWER INSTRUCTIONS [...] loss of tissue. Check out the free [employer] Quit Line - The Quit Line is open 24 hours a day, seven days a we ek. The Quit Line is a telephone and web-based counseling service to help [place]ians quit us ing tobacco and nicotine products. 1.800.QUIT.NOW ( ) or www.quitnow.net/[place] PARKING Parking at the [facility] for patients and visitors is available in the [facility] tructure located across from the emergency department. Patient parking is available on level 1 and 3. Metered parking is available on the top level. Parking at [facility] is available in the building's parking structure. For additional parking options visit [email or web address]. TRANSPORTATION You will require transportation home on the day of discharge. Pain medications and physical activity restrictions may limit your ability to drive safely. CANCELLING YOUR PROCEDURE Please notify the general surgery office at [phone] as soon as possible should you nee [...] lost 100+ lbs! She last saw the [facility] team in 02/2019, at which time she [...] plans to see an ENT and a detailer furniture for her symptoms in the near future. [...] nilesh limb 150 cm or less 8 [facility] Past Medical History: Diagnosis [...] file Gets together: Not on file Attends nondenominational service: Not on file Active member of club or organization: Not on file Attends meetings of clubs or organizations: Not on file Relationship status: Not on file Other Topics Concern Not on file Social History Narrative Updated 11/09/15 She lives in [place] with her mother and her sister (also her caregiver) lives in an apa rtment/duplex below. She has 2 grandchildren (age 4 and 7) who live with her daughter and son-in-law Her boyfriend lives in [place] HFpEF, DM2, HTN, Sleep Apnea (unable to [...] daily. BELBUCA 600 mcg buccal film CALCIUM [id number]&GKA-[id number]-QGN21-GENIS ORAL Take 2 tablets by mouth two [...] by Gadiel Yi . JONES TIWARI MD [facility] AT [facility] [address] Mailcode: [place] [address] I spent 31 minutes with [...] | 2019 | Visit | | [address] | | | | | | [place], [place] | | | | | | [address] | | | | | | [phone] | | | | | | | | +--------+ + + + + | 04/04/ | Telephone-S | Surgery | Orquidea Cristobal, | | | 2019 | sarahiloveled | | CENTER DIRECTOR LEAD TEACHER [address] | | | | | | [place], [place] | | | | | | [address] | | | | | | [phone] | | | | | | | | +--------+ + + + + documented as of this encounter Visit Diagnoses + + | Diagnosis | + + | Ventral hernia without obstruction or gangrene - Primary Ventral hernia, unspecified, | | without mention of obstruction or gangrene | + + documented in this encounter
--- OUTSIDE RECORDS SUMMARY | ~2020-02-27 | XMS | Encounter Summary ---
Demographics + + + | Address | [address] | | | [place] [address] | + + + | Home Phone [...] [place], [place] | | | | | [address] | | + + + + + | Ellie Vang | ECON | Unknown | | + + + + + Care Team Providers + +------+ + | Care Box Office Agent Name | Role | Phone | + +------+ + | Fadi Goodrich DO | PCP | | + +------+ + Encounter Details +--------+ + + + + | Date | Type | Department | Care Team | Description | +--------+ + + + + | 02/09/ | Abstract | Digestive Health | Clinic, Surgery | | | 2016 | | [place] [address] [address] | | | | | | [facility] | | | | | | for Health and | | | | | | [facility], [facility] 2 | | | | | | [place], [place] | | | | | | [address] | | | | | | [phone] | | | +--------+ + + + [...] Ave | | | | | | [place], [place] | | | | | | [address] | | | | | | [phone] | | | | | | | | +--------+ + + + + | 04/04/ | Telephone-S | Surgery | Orquidea Cristobal, | | | 2019 | cheduled | | SLEEVE MACHINE TENDER [address] | | | | | | [facility] [place] | | | | | | [address] | | | | | | [phone] | | | | | | | | +--------+ + + + + documented as of this encounter Visit Diagnoses Not on filedocumented in this encounter"
--- OUTSIDE RECORDS SUMMARY | ~2020-02-27 | XMS | Encounter Summary ---
Demographics + + + | Address | [address] | | | [place] [address] | + + + | Home Phone [...] [place], [place] | | | | | [address] | | + + + + + [...] + | Medical Records | Letter from patient case manager. | | Review | | + + + Encounter Details +--------+ + + + + | Date | Type | Department | Care Team | Description | +--------+ + + + + | 11/08/ | Abstract | Digestive Health | Shereen Georges, | Medical Records | | 2014 | | Center at [facility] [address] | [facility] [address] | Review (Letter from | | | | [address] [facility] | [place], [place] | patient case manager. ) | | | | for Health and | [address] | | | | | [facility], [place] [address] | [phone] | | | | | [place], [place] | | | | | | [address] | | | | | | [phone] | | | +--------+ + + + [...] Ave | | | | | | [place], [place] | | | | | | [address] | | | | | | [phone] | | | | | | | | +--------+ + + + + | 04/04/ | Telephone-S | Surgery | Orquidea Cristobal, | | | 2019 | cheduled | | ASTRONOMY INSTRUCTOR [address] | | | | | | [place], [place] | | | | | | [address] | | | | | | [phone] | | | | | | | | +--------+ + + + + documented as of this encounter Visit Diagnoses Not on filedocumented in this encounter"
--- OUTSIDE RECORDS SUMMARY | ~2020-02-27 | XMS | Encounter Summary ---
Demographics + + + | Address | [address] | | | [place] [address] | + + + | Home Phone [...] [place], [place] | | | | | [address] | | + + + + + | Ellie Vang | ECON | Unknown | | + + + + + Care Team Providers + +------+ + | Care Sales Agent Marine Insurance Name | Role | Phone | [...] [facility] [address] | MD [address] | | | | | [address] | [place], [place] | | | | | for Health and | [address] | | | | | [facility] 2 | [phone] | | | | | [place], [place] | | | | | | [address] | | | | | | [phone] | | | +--------+--------+ + + + [...] [address] | | | | | | [place], [place] | | | | | | [address] | | | | | | [phone] | | | | | | | | +--------+ + + + + | 04/04/ | Telephone-S | Surgery | Orquidea Cristobal, | | | 2019 | cheduled | | HIDE WORKER [address] | | | | | | [place], [place] | | | | | | [address] | | | | | | [phone] | | | | | | | | +--------+ + + + + documented as of this encounter Visit Diagnoses Not on filedocumented in this encounter"
--- OUTSIDE RECORDS SUMMARY | ~2020-02-27 | XMS | Encounter Summary ---
Demographics + + + | Address | [address] | | | [place] [address] | + + + | Home Phone [...] [place], [place] | | | | | [address] | | + + + + + | Ellie Vang | ECON | Unknown | | + + + + + Care Team Providers + +------+ + | Care Ocean Export Coordinator Name | Role | Phone | [...] | | | | [address] | [place], [place] | | | | | Physicians [place], | [address] | | | | | 2nd Floor | [phone] | | | | | [place], [place] | | | | | | [address] | | | | | | [phone] | | | +--------+---------+ + + + [...] Andie Brian Incisional hernia repair 02/2015 [facility]/ Dr. Cantu PHYSICAL EXAMINATION: BP 133/63 [...] GENERAL SURGERY AT [facility] [address] [facility] Mailcode: [id number] [place] [address] documented in this encounter Plan of Treatment +--------+ + + + + | Date | Type | Specialty | Care Team | Description | +--------+ + + + + | 03/22/ | Office | Cardiology | Randell Franks, | | | 2019 | Visit | | [address] | | | | | | [place], [place] | | | | | | [address] | | | | | | [phone] | | | | | | | | +--------+ + + + + | 04/04/ | Telephone-S | Surgery | Orquidea Cristobal, | | | 2019 | cheduled | | EXECUTIVE DIRECTOR [address] | | | | | | [facility] [place] | | | | | | [address] | | | | | | [phone] | | | | | | | | +--------+ + + + + documented as of this encounter Visit Diagnoses + + | Diagnosis | + + | Incarcerated incisional hernia - Primary Incisional hernia with obstruction | + + documented in this encounter"
--- OUTSIDE RECORDS SUMMARY | ~2020-02-27 | XMS | Encounter Summary ---
Demographics + + + | Address | [address] | | | [place] [address] | + + + | Home Phone [...] [place], [place] | | | | | [address] | | + + + + + | Ellie Vang | ECON | Unknown | | + + + + + Care Team Providers + +------+ + | Care Assembly Press Operator Name | Role | Phone [...] | 2012 | on | Center at [facility] [address] | DIRECTOR OF CARDIAC CATH LAB [address] | | | | | [address] [facility] | [facility] [address] | | | | | for Health and | [place], [place] | | | | | [facility] 2 | [address] | | | | | [place], [place] | [phone] | | | | | [address] | | | | | | [phone] | | | +--------+ + + + [...] Ave | | | | | | [place], [place] | | | | | | [address] | | | | | | [phone] | | | | | | | | +--------+ + + + + | 04/04/ | Telephone-S | Surgery | Orquidea Cristobal, | | | 2019 | [email or web address] | | COCOA MILL OPERATOR [address] | | | | | | [facility], [place] | | | | | | [address] | | | | | | [phone] | | | | | | | | +--------+ + + + + documented as of this encounter Visit Diagnoses Not on filedocumented in this encounter"
--- OUTSIDE RECORDS SUMMARY | ~2020-02-27 | XMS | Encounter Summary ---
Demographics + + + | Address | [address] | | | [place] [address] | + + + | Home Phone [...] [place], [place] | | | | | [address] | | + + + + + | Ellie Vang | ECON | Unknown | | + + + + + Care Team Providers + +------+ + | Care Defence Intelligence Analyst Name | Role | Phone | [...] + + | 01/01/ | Emergency | [facility] Emergency | Fide Hester | | | 2017 - | | Department [address] | MD Raza [address] [facility] | | | | | [address] | [address] | | | 01/02/ | | [facility] | [place], [place] | | | 2017 | | [place], [place] | [address] | | | | | [address] | [phone] | | | | | [phone] | | | | | | | Jaime Yee, | | | | | | ANP [address] | | | | | | [facility] | | | | | | [place], [place] | | | | | | [address] | | | | | | [phone] | | | | | | | | | | | | Sheree Aguiar MD | | | | | | [address] | | | | | | [place], [place] | | | | | | [address] | | | | | | | | | | | | Felix Cardoza, | | | | | | CHERRY GROWER [address] | | | | | | [facility] | | | | | | [place], [place] | | | | | | [address] | | | | | | [phone] | | | | | | | [...] ready for discharge. Thank you for choosing [facility] for your healthcare needs. Abdominal [...] surgery. In open surgery, the doctor nupur thurmans one cut near the hernia. This cut [...] living will and a durable power of family law attorney for health care. Bring a copy [...] apply lotions, perfume s, deodorants, or nail bulgarian. Do not shave the surgical site yourself. [...] driving, and getting back to your nor [facility] routine. When should you call your [...] Repair: Before Your Surgery", log into your Greendizer a ccount at [email or web address]. You can enter U288 in the "LiveHealthier Library" search box . Not on Greendizer? Review the AdBuddy Inct section of your After Visit Summary for directions on anjel aguero to sign up. Current as of: March 04, 2016 Content Version: 11.2 [id number] [employer]. Care instructions adapted under license by [facility]. If you have questions about a medical condition or this instr uction, always ask your healthcare professional. [employer] disclaims any curly anty or liability for [...] changes in the way you eat. An quality control specialist to help you be more active [...] Prepare for Weight-Loss Surgery", log into your Greendizer account at [email or web address]. You can enter C413 in the "LiveHealthier Library" s earch box. Not on Greendizer? Review the Greendizer section of your After Visit Summary for directions on anjel w to sign up. Current as of: May 08, 2016 Content Version: 11.2 [id number] HealthLogan ramos. Care instructions adapted under license by [facility]. If you have questions about a medical condition or this instr uction, always ask your healthcare professional. [employer] disclaims any curly anty or liability for [...] | | 0 | | | | [id number] | mouth two times | | | [...] - 01/02/2017 7:49 AM PDT [facility] DEPARTMENT OF SURGERY EMERGENCY GENERAL SURGERY Division [...] wall hernias, laci hobbs was flown from [place] with abdominal pain from a recurrent, reducible [...] uss with Dr. Moore. Mary Ball MD [id number] [facility] [place] [facility] [address] [place] [facility] [place] [address] documented in this en counter Plan of Treatment +--------+ + + + + | Date | Type | Specialty | Care Team | Description | +--------+ + + + + | 03/22/ | Office | Cardiology | Randell Franks, | | | 2019 | Visit | | [address] | | | | | | [place], [place] | | | | | | [address] | | | | | | [phone] | | | | | | | | +--------+ + + + + | 04/04/ | Telephone-S | Surgery | Ora Cristobalica, | | | 2019 | sherrill | | CHERRY GROWER [address] | | | | | | [place], [place] | | | | | | [address] | | | | | | [phone] | | | | | | | [...] AMES | [address] | [place], [place] | | | JUSTINE DAWN OF CARE | [address] | [address] | | | TESTS | | | [...] | | | LABORATORY | | | ERITREAN | | | SERVICES, | | | [...] CENTER LABORATORY | [address] | [place] [address] | | | SERVICES, CORE | CLARENCE [...] AMES | [address] | [place], [place] | | | JUSTINE DAWN OF CARE | [address] | [address] | | | TESTS | | | [...] [facility] | [address] | [place] [address] | | | SERVICES, CORE | PARK [...] [facility] | [address] | [place] [address] | | | SERVICES, LYDIA | PARK [...] + | [facility] - | [address] | [place] [address] | | | [place] | | | [...] CENTER LABORATORY | [address] | [place] [address] | | | SERVICES, CORE | CLARENCE [...] | | | TC02 | | | KWAKU | | | [...] YAKOVAM | [address] | [place], [place] | | | LÓPEZ POINT OF CARE | [employer] [facility] | [address] | | | TESTS | | | [...] [facility] | [address] | [place] [address] | | | SERVICES, | [address] [...] [facility] | [address] | [place] [address] | | | SERVICES, | [address] [...] [facility] | [address] | [place] [address] | | | LYDIA RANGEL | CLARENCE [...] | [facility] | [address] | [place] [address] | | | SERVICES, CORE | PARK [...] | | | LABORATORY | | | ERITREAN | | | SERVICES, | | | [...] [facility] | [address] | [place] [address] | | | SERVICES, CORE | [address] | | | + + + + + ED INFORMATION EXCHANGE (01/01/2017 8:22 AM PDT) + + + + + + | Component | Value | Ref Range | Performed | Pathologist | | | | | At | Signature | + + + + + + | [facility] | [id number] | | [facility] | | | | [id number] | | [facility]ICAL | | | | [...] | ----- ---- | | | RADHA alonso [facility] | | | [facility] Unknown Primary Care | | | Unknown - Current Radha Goodrich DO | | | [phone] Primary Care | | | Unknown - Current | | + + + + + + + + | Performing | Address | City/State/Zipcode | Phone Number | | Organization | | | | + + + + + | [facility] | [address] | [place], [place] | [phone] | | [employer] | [address] | [address] | | + + + + + [...] | | HOURS, First dose on Jasmyne 01/01/17 | | [...] oral, DAILY, First dose on Thu | 8:51 | | | | | 01/01/17 [...] | | | | Last dose on [place] 01/04/17 at 0700 | | | | [...] First dose on [facility] 01/01/17 at 1945, | | AM PDT [...] ONCE, 1 dose, [facility] 01/01/17 at 0945 | | AM PDT | | | | + +---------+ + +---+---+ +---+---+ | | | +---+---+ + +-------+ +-------+---+---+ | thyroid tablet 30 mg 30 mg, | Given | 01/03/20 | 30 mg | | | | oral, DAILY, First dose on Thu | | 8:50 | | | | | 01/01/17 [...]
--- OUTSIDE RECORDS SUMMARY | ~2020-02-27 | XMS | Encounter Summary ---
Demographics + + + | Address | [address] | | | [place] [address] | + + + | Home Phone [...] [place], [place] | | | | | [address] | | + + + + + | Ellie Vang | ECON | Unknown | | + + + + + Care Team Providers + +------+ + | Care Cartridge Feeder Name | Role | Phone | [...] Physicians | | | | | | [facility] | [place], [facility] | | | | | | [place], [place] | Floor | | | | | | [address] | [place], [place] | | | | | | Phone: | [address] | | | | | | [phone] | Phone: | | | | | | | [phone] | | | | | | | Fax: | | | | | | | [phone] | +--------+--------+ + + + + Encounter [...] | [facility] [address] [place], | | | | | [address] | [place] [address] | | | | | Physicians [facility], | [phone] | | | | | 2nd Floor | | | | | | [place], [place] | | | | | | [address] | | | | | | [phone] | | | +--------+---------+ + + + [...] Axel Gonzales MD - 03/06/2014 1:15 [facility] [...] a HIDA scan to be done in [place] to verify that she does not have a pos t-operative surgical complication. We will call her with the results of her labs and imagin g. If these all come back normal she will need to follow up with her PCP to address her elisa sea/vomiting. - CBC and LFT's today - HIDA scan ordered, to be done in [place] - Will call patient once results are back. If normal, no need for follow up with EGS. The patient was seen and examined with Dr. Starr who agrees with the above assessment and janina Gonzales MD PGY-2 General Surgery Resident Department of General Surgery Pager: [phone] I saw and evaluated the patient. I agree with the findings and the plan of care as dequan han in the resident s note. PRADIP STARR MD [facility] GENERAL SURGERY AT [facility] [address] [facility] Mailcode: [id number] [place] [address] documented in this encoun ter Plan of Treatment +--------+ + + + + | Date | Type | Specialty | Care Team | Description | +--------+ + + + + | 03/22/ | Office | Cardiology | Randell Franks, | | | 2019 | Visit | | MD [address] | | | | | | [place], [place] | | | | | | [address] | | | | | | [phone] | | | | | | | | +--------+ + + + + | 04/04/ | Telephone-S | Surgery | Orquidea Cristobal, | | | 2019 | cheduled | | WAREHOUSE DISTRIBUTION ASSOCIATE [address] | | | | | | [place], [place] | | | | | | [address] | | | | | | [phone] | | | | | | | [...] NKECHI ROBERTS | [address] | [place] [address] | | | SERVICES, CORE | [address] | | | + + + + + documented in this encounter Visit Diagnoses + + | Diagnosis | + + | Cholecystitis - Primary Cholecystitis, unspecified | + + documented in this encounter
--- OUTSIDE RECORDS SUMMARY | ~2020-02-27 | XMS | Encounter Summary ---
Demographics + + + | Address | [address] | | | [place] [address] | + + + | Home Phone [...] [place], [place] | | | | | [address] | | + + + + + | Ellie Vang | ECON | Unknown | | + + + + + Care Team Providers + +------+ + | Care Bead Supervisor Name | Role | Phone | + +------+ + | Fadi Goodrich DO | PCP | | + +------+ + Encounter Details +--------+------+ + + + | Date | Type | Department | Care Team | Description | +--------+------+ + + + | 12/05/ | Lab | Laboratory at [facility] | | Type 2 diabetes | | 2013 | | [address] | | mellitus (HCC) | | | | [facility] | | | | | | and Healing, | | | | | | [address] | | | | | | [place], [place] | | | | | | [address] | | | | | | [phone] | | | +--------+------+ + + + [...] Ave | | | | | | [place], [place] | | | | | | [address] | | | | | | [phone] | | | | | | | | +--------+ + + + + | 04/04/ | Telephone-S | Surgery | Orquidea Cristobal, | | | 2019 | cheduled | | AUTOMAT CAR ATTENDANT [address] | | | | | | [facility] [place] | | | | | | [address] | | | | | | [phone] | | | | | | | [...] NKECHI ALEJANDRA | [address] | [place] [address] | | | SERVICES, SPECIAL | PARK [...]
--- OUTSIDE RECORDS SUMMARY | ~2020-02-27 | XMS | Encounter Summary ---
Demographics + + + | Address | [address] | | | [place] [address] | + + + | Home Phone [...] Team Providers + +------+ + | Care Solid Tire Finisher Name | Role | Phone | [...] RIZVI F | | | | | [place], [place] | [place] [address] | | | | | [address] | [phone] | | | | | [phone] | | | +--------+ + + + [...] D | | | | | | [place] [address] | | | | | | [phone] | | | | | | | | +--------+ + + + + | 03/29/ | Office | Cardiology | Sulema Altamirano | | 2019 | Visit | | [address] | | | | | | [address] | | | | | | [place] [address] | | | | | | [phone] | | | | | | | [...] 5.71 | | | RAP: 5 mmHg Forest Nursery Supervisor: JESSICA Authenticated by: BENJY | | | [...] cmLVPWd: 0.81 | | cmLVOT Area: 3.98 jf4KDPV Diam: 2.25 cm%FS: 32.91 %EF(Teich): 61.28 | [...] (A-L): 20.64 ml/m2LAAs A2C: 14.37 | | [id number] A-L A2C: 40.74 mlLALs A2C: 4.30 cmLAAs A4C: 16.09 uu6OUTSF A-L A4C: | | 43.02 mlLALs A4C: 5.10 cmRAAs: 13.58 [id number] A-L: 33.08 mlRAESV MOD: 32.14 | | mlRALs: 4.73 cmTAPSE: 2.16 cmAV maxP.33 mmHgAV meanP.31 mmHgAV Vmax: | | 1.60 m/Genesis Vmean: 1.08 m/Genesis VTI: 25.19 cmAVA Vmax: 2.75 cm2AVA (VTI): 3.06 | | rf4ZDZP Vmax: 0.00 cm2/m2AVAI (VTI): 0.00 cm2/m2LVOT maxP.93 mmHgLVOT meanPG: | | 2.50 mmHgLVSI Dopp: 34.92 ml/m2LVSV Dopp: 77.18 mlLVOT Vmax: 1.11 m/sLVOT Vmean: | | 0.73 m/sLVOT VTI: 19.34 cmMV A Jeffrey: 0.81 m/sMV DecT: 249.81 msMV E Jeffrey: 0.82 | | m/sMV E/A Ratio: 1.01MV PHT: 72.44 msMVA By PHT: 3.03 jv9Tkduwp e': 0.07 | | m/sSeptal E/e': 11.80Lateral e': 0.14 m/sLateral E/e': 5.71RAP: 5 mmHg | | Forest Nursery Supervisor: DHAuthenticated by: Shirley SILVER Date/Time: 02-16-2017 18:47:15 [...] | |RAP: 5 mmHg | | | |Forest Nursery Supervisor: | |Authenticated by: BENJY HANKINS MD | [...]
--- OUTSIDE RECORDS SUMMARY | ~2020-02-27 | XMS | Encounter Summary ---
Demographics + + + | Address | [address] | | | [place] [address] | + + + | Home Phone [...] [place], [place] | | | | | [address] | | + + + + + | Ellie Vang | ECON | Unknown | | + + + + + Care Team Providers + +------+ + | Care Automated Cutting Machine Operator Name | Role | Phone [...] Diabetes & | Morbid | Kathy M, OCCUPATIONAL NURSE | [facility] [address] | | | | Metabolism | obesity | [address] | [address]ilion | | | | | (HCC) | [address], | Loop | | | | | Procedures | [address] | Physician's | | | | | CONSULT TO | [place], [place] | Pavilion | | | | | ENDO | [address] | Physician's | | | | | [address] | Phone: | Pavilion | | | | | | [phone] | [place], [place] | | | | | | Fax: | [address] | | | | | | [phone] | Phone: | | | | | | | [phone] | | | | | | | Fax: | | | | | | | [phone] | +--------+--------+ + + + + Encounter [...] | | | Center at Physicians | [place], [place] | (Primary Dx); Morbid | | | | [address] | [address] | obesity (HCC) | | | | [address] | [phone] | | | | | Physician's Pavilion | | | | | | Physician's | | | | | | Pavilion [place], | | | | | | [place] [address] | | | | | | [phone] | | | +--------+---------+ + + + [...] | | | | | | [place], [place] | | | | | | [address] | | | | | | [phone] | | | | | | | | +--------+ + + + + | 04/04/ | Telephone-S | Surgery | Orquidea Cristobal, | | | 2019 | sherrill | | FOOD PRODUCTION MACHINE OPERATOR [address] | | | | | | [place], [place] | | | | | | [address] | | | | | | [phone] | | | | | | | [...]
--- OUTSIDE RECORDS SUMMARY | ~2020-02-27 | XMS | Encounter Summary ---
Demographics + + + | Address | [address] | | | [place] [address] | + + + | Home Phone [...] [place], [place] | | | | | [address] | | + + + + + | Ellie Vang | ECON | Unknown | | + + + + + Care Team Providers + +------+ + | Care Turret Lathe Set Up Operator Name | Role | [...] 2014 | | Preventive at [facility] | MD [address] | | | | | [address] | [place], [place] | | | | | [facility] | [address] | | | | | and [place], | [phone] | | | | | [address] | | | | | | [facility] [place] | | | | | | [address] | | | | | | [phone] | | | +--------+ + + + [...] Ave | | | | | | [place], [place] | | | | | | [address] | | | | | | [phone] | | | | | | | | +--------+ + + + + | 04/04/ | Telephone-S | Surgery | Orquidea Cristobal, | | | 2019 | cheduled | | CYLINDER DEVALVER [address] | | | | | | [place], [place] | | | | | | [address] | | | | | | [phone] | | | | | | | | +--------+ + + + + documented as of this encounter Visit Diagnoses Not on filedocumented in this encounter"
--- OUTSIDE RECORDS SUMMARY | ~2020-02-27 | XMS | Encounter Summary ---
Demographics + + + | Address | [address] | | | [place] [address] | + + + | Home Phone [...] [place], [place] | | | | | [address] | | + + + + + | Ellie Vang | ECON | Unknown | | + + + + + Care Team Providers + +------+ + | Care Critical Care Nurse Specialist Name | Role | Phone | [...] | [address] | [place], [place] | | | | | for Health and | [address] | | | | | [facility] [address] | | | | | | [place], [place] | | | | | | [address] | | | | | | | [...] Ave | | | | | | [place], [place] | | | | | | [address] | | | | | | [phone] | | | | | | | | +--------+ + + + + | 04/04/ | Telephone-S | Surgery | Orquidea Cristobal, | | | 2019 | sherrill | | CORE ANALYST [address] | | | | | | [place], [place] | | | | | | [address] | | | | | | [phone] | | | | | | | | +--------+ + + + + documented as of this encounter Visit Diagnoses Not on filedocumented in this encounter"
--- OUTSIDE RECORDS SUMMARY | ~2020-02-27 | XMS | Encounter Summary ---
Demographics + + + | Address | [address] | | | [place] [address] | + + + | Home Phone [...] [place], [place] | | | | | [address] | | + + + + + | Ellie Vang | ECON | Unknown | | + + + + + Care Team Providers + +------+ + | Care Counter Supervisor Name | Role | Phone | [...] | 2012 | on | Center at [facility] [address] | FIELD WORKER [address] | | | | | [address] [facility] | [facility] [address] | | | | | for Health and | [place], [place] | | | | | [facility] 2 | [address] | | | | | [place], [place] | [phone] | | | | | [address] | | | | | | [phone] | | | +--------+ + + + [...] Ave | | | | | | [place], [place] | | | | | | [address] | | | | | | [phone] | | | | | | | | +--------+ + + + + | 04/04/ | Telephone-S | Surgery | Orquidea Cristobal, | | | 2019 | cheduhipolito | | BRIM STITCHER [address] | | | | | | [facility] [place] | | | | | | [address] | | | | | | [phone] | | | | | | | | +--------+ + + + + documented as of this encounter Visit Diagnoses Not on filedocumented in this encounter"
--- OUTSIDE RECORDS SUMMARY | ~2020-02-27 | XMS | Encounter Summary ---
Demographics + + + | Address | [address] | | | [place] [address] | + + + | Home Phone [...] Providers + +------+ + | Care Fisher Terrapin Name | Role | Phone | + +------+ + PCP | Unavailable | + +------+ + Encounter Details +--------+ + + + + | Date | Type | Department | Care Team | Description | +--------+ + + + + | 11/20/ | Orders Only | [facility] | Conversion | | | 2016 | | NEPHROLOGY [place] | Transaction, | | | | | [address] | Provider Unknown | | | | | [address] [place], [place] | | | | | | [address] | (Fax) | | | | | [phone] | | | +--------+ + + + [...] D | | | | | | [place] [address] | | | | | | [phone] | | | | | | | | +--------+ + + + + | 03/29/ | Office | Cardiology | Sulema Altamirano | | | 2019 | Visit | | [address] | | | | | | [address] | | | | | | [place] [address] | | | | | | [phone] | | | | | | | [...]
--- OUTSIDE RECORDS SUMMARY | ~2020-02-27 | XMS | Encounter Summary ---
Demographics + + + | Address | [address] | | | [place] [address] | + + + | Home Phone [...] [place], [place] | | | | | [address] | | + + + + + | Ellie Vang | ECON | Unknown | | + + + + + Care Team Providers + +------+ + | Care Electrical Systems Engineer Name | Role | Phone [...] + | 11/05/ | Hospital | [facility] 14C [address] | Joseph An | | | 2016 - | Encounter | [address] | MD Birgit [address] [facility] | | | | | 14C [facility] | [address] | | | 11/20/ | | [place], [place] | [place], [place] | | | 2016 | | [address] | [address] | | | | | [phone] | [phone] | | | | | | | | | | | | Ana, | | | | | | MD Briana [address] | | | | | | [address] | | | | | | Rd [place], [place] | | | | | | [address] | | | | | | [phone] | | | | | | | | | | | | Carmelina Tucker, | | | | | | JEFFREY-Aimee [address] | | | | | | [address] | | | | | | [place], [place] | | | | | | [address] | | | | | | [phone] | | | | | | | | | | | | Charley Lacey MD | | | | | | Jose Scott MD | | | | | | [address] | | | | | | [address] | | | | | | [place], [place] | | | | | | [address] | | | | | | [phone] | | | | | | | | | | | | Mannie Larkin MD | | | | | | [address] | | | | | | [address] [place], | | | | | | [place] [address] | | | | | | [phone] | | | | | | | | | | | | Tyrone Adrian MD | | | | | | [address] | | | | | | [address] [place], | | | | | | [place] [address] | | | | | | [phone] | | | | | | | [...] did want her to follow up with metal organ pipe maker in [place]. She should continue working towards bariatric surgery wh ich will ultimately put less stress on her heart. -Continue torsemide 80mg BID -Increase potassium supplementation to KCl 40mg BID -Daily weights and strict 2g Na 2L fluid restricted diet -Close followup with Dr. Goodrich (appt on 11/25 at 11AM) -Needs followup with cardiology in [place] #Left lower extremity DVT #Presumed PE Asymmetric left lower extremity pain and swelling was suspicious for DVT and confirmed with duplex ultrasound. Did not pursue CTA as it was decided that it would not traveler changer . Started anticoagulation bridge with heparin [...] mouth once daily. , Historical Med CALCIUM [id number] ORAL Take 2 tablets by mouth two [...] Cyndi Meier Cardiology Congestive [facility] Failure at [facility] Cardiology Additional Instructions/Orders: Diet Diabetic (Consistent [...] Good Yosef Segovia MD PGY-1 Internal Medicine [id number] INPATIENT FACULTY PROGRESS NOTE - GM 1 [...] 15) Candidal intertrigo Tyrone Adrian MD [facility] 14C fitter welder Division of Hospital Medicine Department of Medicine [address] [place] [address] [facility] DEPARTMENT: Hosp- [id number] Place of Service: Date of Service: 11/21/2015 CSN: [id number] Modifiers:GC Resident Involved: Yes Suggested CPT: 55807 Discharge Management < 30 minute documented in this encou nter Medications at Time of Discharge + + + +---------+--------+ + | Medication | Sig | Dispensed | Refills | Start | End Date | | | | | | Date | | + + + +---------+--------+ + | CALCIUM | Take 2 tablets by | | 0 | | | | [id number]-GEN | mouth two times | | | [...] 15) Candidal intertrigo Tyrone Adrian MD [facility] 14C fitter welder Division of Hospital Medicine Department of Medicine [facility] [address] [place] [address] [facility] DEPARTMENT: Hosp- [id number] Place of Service: - Date of Service: 11/20/2015 CSN: [id number] Modifiers:CHANDLER Resident Involved: Yes Suggested CPT: 61649 Subsequent Visit Exp Prob Foc/Mod Complexity 25 min olleen Diamond - 016 6:49 AM PDT PHYSICIAN DOORMAKER STUDENT PROGRESS NOTE FOR EDUCATIONAL PURPOSES ONLY INPATIENT PROGRESS NOTE PATIENT INFORMATION Patient Name: Elzbitea Cristina Date of : 1975 Date of Admission: 11/06/2015 PCP: Fadi Goodrich DO Room/Bed: [facility] Attending Provider: Tyrone Adrian MD Encounter Information [...] of ovarian cysts or menses related. Contact PAINTING SUPERVISOR if TV-US i s ordered. - TV-US [...] topiramate 200mg po bid JEFFREY Gee-S2 [facility] PA Student Feeding: <2L fluid, Diabetic diet, >2g na Analgesia: APAP, gabapentin, hydrocodone Thromboembolic prophylaxis: Heparin/warfarin Glycemic control: moderate ISS Mobility: Encourage walking and movement Discharge: Expect hospital stay another 2-3 days with PCP FU (Dr. Goodrich) on Saturday 11/25 @ 1 1 am. - Referral to Restaurant Hospitality Manager Code status: FULL Associated attestation - [...] PCP Yosef Segovia MD PGY-1 Internal Medicine [id number] Tyrone Adrian MD - 11/19/2015 11:51 AM [...] the PO works) Tyrone Adrian MD [facility] 14C fitter welder Division of Hospital Medicine Department of Medicine [facility] [address] [place] [phone] [facility] DEPARTMENT: Hosp- [id number] Place of Service: [facility] Date of Service: 11/19/2015 CSN: [id number] Modifiers:GC Resident Involved: Yes Suggested CPT: 38379 Subsequent Visit Exp Prob Foc/Mod Complexity 25 min lowerbobbi Colleen - 016 6:24 AM PDT PHYSICIAN DOORMAKER STUDENT PROGRESS NOTE FOR EDUCATIONAL PURPOSES ONLY INPATIENT PROGRESS NOTE PATIENT INFORMATION Patient Name: Elzbieta Cristina Date of : 1975 Date of Admission: 11/06/2015 PCP: Fadi Goodrich DO Room/Bed: [facility]/08/08 Attending Provider: Tyrone Adrian MD [...] of ovarian cysts or menses related. Contact PAINTING SUPERVISOR if TV-US i s ordered. - TV-US [...] topiramate 200mg po bid JEFFREY Gee-S2 [facility] PA Student Feeding: <2L fluid, Diabetic diet, [...] can. Yosef Segovia MD PGY-1 Internal Medicine [id number] Tyrone Adrian MD - 11/18/2015 2:01 PM [...] 15) Candidal intertrigo Tyrone Adrian MD [facility] 14C fitter welder Division of Hospital Medicine Department of Medicine [facility] [address] [place] [phone] [facility] DEPARTMENT: Hosp- [id number] Place of Service: Date of Service: 11/18/2015 CSN: [id number] Modifiers:GC Resident Involved: Yes Suggested CPT: 70659 Subsequent Visit Exp Prob Foc/Mod Complexity 25 [...] plan. Yosef Segovia MD PGY-1 Internal Medicine [id number] signed by Yosef Segovia at 11/18/2015 11:52 [...] 15) Candidal intertrigo Tyrone Adrian MD [facility] 14C fitter welder Division of Hospital Medicine Department of Medicine [facility] [address] [place] [phone] [facility] DEPARTMENT: Hosp- [id number] Place of Service: - [id number] Date of Service: 11/17/2015 CSN: [id number] Modifiers:GC Resident Involved: Yes Suggested CPT: 93202 Subsequent Visit Exp Prob Foc/Mod Complexity 25 min lColleen goff - 016 6:40 AM PDT PHYSICIAN DOORMAKER STUDENT PROGRESS NOTE FOR EDUCATIONAL PURPOSES ONLY [...] topiramate 200mg po bid JEFFREY Gee-S2 [facility] PA Student Feeding: <2L fluid, Diabetic diet, [...] can Yosef Segovia MD PGY-1 Internal Medicine [id number] Tyrone Adrian MD - 11/16/2015 4:59 PM [...] 15) Candidal intertrigo Tyrone Adrian MD [facility] 14C fitter welder Division of Hospital Medicine Department of Medicine [facility] [address] [place] [phone] [facility] DEPARTMENT: Hosp- [id number] Place of Service: - Date of Service: 11/16/2015 CSN: [id number] Modifiers:GC Resident Involved: Yes Suggested CPT: 07485 Subsequent Visit Exp Prob Foc/Mod Complexity 25 min olleen Diamond - 016 6:43 AM PDT PHYSICIAN DOORMAKER STUDENT PROGRESS NOTE FOR EDUCATIONAL PURPOSES ONLY INPATIENT PROGRESS NOTE PATIENT INFORMATION Patient Name: Elzbieta Cristina Date of : 1975 Date of Admission: 11/06/2015 PCP: Fadi Goodrich DO Room/Bed: [address] [place] [address] Attending Provider: Tyrone Adrian MD Encounter Information [...] to claustrophobia.Weight g ain could have worsened AMRAA and caused pulmonary/cardiac problems. Overnight O2 monitoring [...] topiramate 200mg po bid JEFFREY Gee-S2 [facility] PA Student Feeding: <2L fluid, Diabetic diet, [...] assistance of Grisel Pearl. Patient lives i [facility] which is quite a distance to travel to and from [place]. We would ideally arran ge cardiac follow [...] 15) Candidal intertrigo Tyrone Adrian MD [facility] 14C fitter welder Division of Hospital Medicine Department of Medicine [facility] [address] [place] [address] [facility] DEPARTMENT: Hosp- [id number] Place of Service: Date of Service: 11/15/2015 CSN: [id number] Modifiers:GC Resident Involved: Yes Suggested CPT: 45644 Subsequent Visit Detailed/High complexity 35 min lColleen goff - 016 6:33 AM PDT PHYSICIAN DOORMAKER STUDENT PROGRESS NOTE FOR EDUCATIONAL PURPOSES ONLY [...] last 8 days Intake 9571.5 ml Output 88014 ml Net since Admission -30709.5 ml -25.938 L = 57.0636 lbs Constitutional: [...] topiramate 200mg po bid JEFFREY Gee-S2 [facility] PA Student Feeding: <2L fluid, Diabetic diet, [...] can Yosef Segovia MD PGY-1 Internal Medicine [id number] Tyrone Adrian MD - 11/14/2015 4:16 PM [...] 15) Candidal intertrigo Tyrone Adrian MD [facility] 14C fitter welder Division of Hospital Medicine Department of Medicine [facility] [address] [place] [address] [facility] DEPARTMENT: Hosp- [id number] Place of Service: - Date of Service: 11/14/2015 CSN: [id number] Modifiers:CHANDLER Resident Involved: Yes Suggested CPT: 64896 Subsequent Visit Exp Prob Foc/Mod Complexity 25 min olleen Diamond - 016 6:42 AM PDT PHYSICIAN DOORMAKER STUDENT PROGRESS NOTE FOR EDUCATIONAL PURPOSES ONLY INPATIENT PROGRESS NOTE PATIENT INFORMATION Patient Name: Elzbieta Cristina Date of : 1975 Date of Admission: 11/06/2015 PCP: Fadi Goodrich DO Room/Bed: [facility] Attending Provider: Tyrone Adrian MD Encounter Information [...] topiramate 200mg po bid JEFFREY Gee-S2 [facility] PA Student Feeding: <2L fluid, Diabetic diet, [...] outpatient Yosef Segovia MD PGY-1 Internal Medicine [id number] Tyrone Adrian MD - 11/13/2015 4:06 PM [...] 15) Candidal intertrigo Tyrone Adrian MD [facility] 14C fitter welder Division of Hospital Medicine Department of Medicine [facility] [address] [place] [phone] [facility] DEPARTMENT: Hosp- [id number] Place of Service: Date of Service: 11/13/2015 CSN: [id number] Modifiers:GC Resident Involved: Yes Suggested CPT: 84050 Subsequent Visit Detailed/High complexity 35 min lshell Colleen - 016 6:36 AM PDT PHYSICIAN DOORMAKER STUDENT PROGRESS NOTE FOR EDUCATIONAL PURPOSES ONLY INPATIENT PROGRESS NOTE PATIENT INFORMATION Patient Name: Elzbieta Cristina Date of : 1975 Date of Admission: 11/06/2015 PCP: Fadi Goodrich DO Room/Bed: [facility] Attending Provider: Tyrone Adrian MD [...] topiramate 200mg po bid JEFFREY Gee-S2 [facility] PA Student Feeding: <2L fluid, Diabetic diet, [...] VTE. Yosef Segovia MD PGY-1 Internal Medicine [id number] Tyrone Adrian MD - 11/12/2015 1:59 PM [...] 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, Jordy CASTING ASSISTANT, at this point not definitive Plan: [...] 12) Candidal intertrigo Tyrone Adrian MD [facility] 14C fitter welder Division of Hospital Medicine Department of Medicine [facility] [address] [place] [address] [facility] DEPARTMENT: Hosp- [id number] Place of Service: - Date of Service: 11/12/2015 CSN: [id number] Modifiers:GC Resident Involved: Yes Suggested CPT: 33153 Subsequent Visit Detailed/High complexity 35 min lColleen goff - 016 6:31 AM PDT PHYSICIAN DOORMAKER STUDENT PROGRESS NOTE FOR EDUCATIONAL PURPOSES ONLY [...] topiramate 200mg po bid JEFFREY Gee-S2 [facility] PA Student Feeding: <2L fluid, Diabetic diet, [...] disease. Yosef Segovia MD PGY-1 Internal Medicine [id number] Rucker MD - 11/11/2015 9:19 PM PDTGENERAL [...] diuresis then RHC Mannie Larkin MD Clinical Scoreboard Operator, Internal Medicine Pager [phone] ERColleen Diamond - 10/25 6:40 AM PDT PHYSICIAN DOORMAKER STUDENT PROGRESS NOTE FOR EDUCATIONAL PURPOSES ONLY [...] - topiramate 200mg po bid JEFFREY Gee-S2 [facility] PA Student Feeding: <2L fluid, Diabetic diet, [...] pain Yosef Segovia MD PGY-1 Internal Medicine [id number] Maria Eugenia Leiva RCP - 11/11/2015 6:39 [...] another 5-7 days Mannie Larkin MD Clinical Scoreboard Operator, Internal Medicine Pager [phone] Yosef Fang - 7:24 AM PDT General [...] plan. Yosef Segovia MD PGY-1 Internal Medicine [id number] signed by Yosef Segovia at 11/10/2015 2:50 [...] R heart cath onc e a bit oven drier tender. In terms of AMARA - does not tolerate CPAP historically. Likely CPAP will be ve ry important for her going forward. Will try overnight oximetry here to assess severity. Discharge planning:Anticipate several days in house. I spent >35 min of which >50% was spent in counseling and coordination of care. Briana Perez MD [facility] Division of Hospital Medicine Grisel Mcghee NP [...] Maker Primary Surrogate Decision Maker Katalina Padilla [facility] [phone] Advanced Directives Existence of Advanced Directive Reviewed: No- Has Interest (11/09/15 1022) Advanced Directives Reviewed Comments: I gave a copy of advance directives (11/09/15 1022) KRISHNA Huertas NP [facility] 14C [address] [place] [address] Colleen Tello - 6:41 AM PDT PHYSICIAN DOORMAKER STUDENT PROGRESS NOTE FOR EDUCATIONAL PURPOSES ONLY [...] of acute blood loss and anemia of records associate ela dz and thalassemia is less likely. [...] AM Yosef Segovia MD PGY-1 Internal Medicine [id number] Briana Perez MD - 11/08/2015 2:01 PM [...] coordination of care. Briana Perez MD [facility] Division of Hospital Medicine olleen Diamond - 11/08/2015 6:26 AM PDT PHYSICIAN DOORMAKER STUDENT PROGRESS NOTE FOR EDUCATIONAL PURPOSES ONLY [...] bid (topamax, nerve pain) JEFFREY Gee-S2 [facility] PA Student Feeding: <2L fluid, Diabetic diet [...] Hair Md, MSc Internal Medicine PGY2 Pager [phone] Kwadwo Freire - 11/07/2015 2:05 PM PDTTransthoracic [...] plan. Yosef Segovia MD PGY-1 Internal Medicine [id number] lowersColleen - 016 8:43 AM PDT PHYSICIAN DOORMAKER STUDENT PROGRESS NOTE FOR EDUCATIONAL PURPOSES ONLY [...] "puffiness". This was around the same t ssuy as an incisional hernia repair (february) and [...] perfusion. - consider US to evaluate liver (CTHY-qtq-mthazmhza fatty liver dz) and look for ascites. [...] armour thyroid 30mg po bid JEFFREY Gee-S2 [facility] PA Student Feeding: <2L fluid, <2g Na [...] Ave | | | | | | [place], [place] | | | | | | [address] | | | | | | [phone] | | | | | | | | +--------+ + + + + | 04/04/ | Telephone-S | Surgery | Orquidea Cristobal, | | | 2019 | cheduled | | ELECTRONIC PARTS DESIGNER [address] | | | | | | [place], [place] | | | | | | [address] | | | | | | [phone] | | | | | | | [...] [facility] | [address] | [place], [place] | | | [facility] | [address] | [address] | | | TESTS | | | [...] | [facility] | [address] | [place] [address] | | | SERVICES, CORE | PARK [...] + | [facility] | [address] | [place] [address] | | | SERVICES, CORE | LESLY [...] | [facility] | [address] | [place] [address] | | | SERVICES, CORE | PARK [...] AMES | [address] | [place], [place] | | | L[place] POINT OF CARE | [address] | [address] | | | TESTS | | | [...] [facility] | [address] | [place], [place] | | | JUSTINE DAWN OF JAKY | [facility] | [address] | | | TESTS | | | [...] [facility] | [address] | [place], [place] | | | JUSTINE [facility] OF [place]Y | [facility] | [address] | | | TESTS | | | [...] AMES | [address] | [place], [place] | | | JUST[facility] [place] | [address] | [address] | | | TESTS | | | [...] [facility] | [address] | [place], [place] | | | [place] POINT OF CARE | [facility] | [address] | | | TESTS | | | [...] + | [facility] | [address] | [place] [address] | | | SERVICES, CORE | PARK [...] | + + + + + | [facility] | [address] | [place] [address] | | | LYDIA RANGEL | LESLY [...] [facility] | [address] | [place] [address] | | | SERVICES, CORE | PARK [...] the MDRD equation recommended by the | [facility] | | National Kidney Disease Education Program. [...] | [facility] | [address] | [place] [address] | | | LYDIA RANGEL | LESLY [...] [facility] | [address] | [place], [place] | | | JUSTINE DAWN OF CARE | [address] | [address] | | | TESTS | | | [...] AMES | [address] | [place], [place] | | | [place] POINT OF CARE | [address] | [address] | | | TESTS | | | [...] + | [facility] | [address] | [place] [address] | | | SERVICES, CORE | LESLY [...] [facility] | [address] | [place] [address] | | | LYDIA RANGEL | LESLY [...] | [facility] | [address] | [place] [address] | | | SERVICES, CORE | LESLY [...] [facility] | [address] | [place], [place] | | | [facility] POINT OF CARE | [address] | [address] | | | TESTS | | | [...] [facility] | [address] | [place], [place] | | | [facility] POINT OF CARE | [address] | [address] | | | TESTS | | | [...] AMES | [address] | [place], [place] | | | JUSTINE [facility]WN OF JAKY | [address] | [address] | | | TESTS | | | [...] [facility] | [address] | [place], [place] | | | [facility] POINT OF CARE | [address] | [address] | | | TESTS | | | [...] + | [facility] | [address] | [place] [address] | | | SERVICES, CORE | LESLY [...] + | [facility] | [address] | [place] [address] | | | LYDIA RANGEL | LESLY [...] - [facility] | [address] | [place], [place] | | | JUSTINE DAWN OF CARE | [facility] | [address] | | | TESTS | | | [...] AMES | [address] | [place], [place] | | | [facility] POINT OF CARE | [facility] | [address] | | | TESTS | | | [...] + | [facility] | [address] | [place] [address] | | | SERVICES, LYDIA | LESLY [...] | [facility] | [address] | [place] [address] | | | CLAIRE, LYDIA | LESLY [...] [facility] | [address] | [place] [address] | | | SERVICES, CORE | PARK [...] + | [facility] | [address] | [place] [address] | | | SERVICES, LYDIA | LESLY [...] [facility] | [address] | [place], [place] | | | JUSTINE DAWN OF JAKY | [facility] | [address] | | | TESTS | | | [...] [facility] | [address] | [place], [place] | | | [facility] POINT OF CARE | [address] | [address] | | | TESTS | | | [...] [facility] | [address] | [place], [place] | | | JUSTINE DAWN OF JAKY | [facility] | [address] | | | TESTS | | | [...] - [facility] | [address] | [place], [place] | | | JUSTINE DAWN OF JAKY | [facility] | [address] | | | TESTS | | | [...] [facility] | [address] | [place] [address] | | | SERVICES, CORE | PARK [...] [facility] | [address] | [place] [address] | | | SERVICES, CORE | PARK [...] + | [facility] | [address] | [place] [address] | | | SERVICES, CORE | PARK [...] + | [facility] | [address] | [place] [address] | | | SERVICES, CORE | LESLY [...] [facility] | [address] | [place] [address] | | | SERVICES, CORE | PARK [...] [facility] | [address] | [place] [address] | | | CLAIRE, LYDIA | PARK [...] [facility] | [address] | [place], [place] | | | JUSTINE DAWN OF CARE | [facility] | [address] | | | TESTS | | | [...] [facility] | [address] | [place], [place] | | | L[place] POINT OF CARE | [address] | [address] | | | TESTS | | | [...] AMES | [address] | [place], [place] | | | JUSTINE DAWN OF JAKY | [facility] | [address] | | | TESTS | | | [...] | [facility] | [address] | [place] [address] | | | SERVICES, CORE | LESLY [...] [facility] | [address] | [place], [place] | | | [facility] | [address] | [address] | | | TESTS | | | [...] [facility] | [address] | [place] [address] | | | SERVICES, CORE | PARK [...] + | [facility] | [address] | [place] [address] | | | SERVICES, CORE | LESLY [...] [facility] | [address] | [place] [address] | | | SERVICES, LYDIA | PARK [...] | [facility] | [address] | [place] [address] | | | SERVICES, CORE | LESLY [...] [facility] | [address] | [place], [place] | | | JUSTINE DAWN OF CARE | [facility] | [address] | | | TESTS | | | [...] | [facility] | [address] | [place] [address] | | | SERVICES, CORE | LESLY [...] [facility] | [address] | [place], [place] | | | L[place] POINT OF CARE | [address] | [address] | | | TESTS | | | [...] | [facility] | [address] | [place] [address] | | | SERVICES, LYDIA | LESLY [...] [facility] | [address] | [place], [place] | | | JUSTINE DAWN OF JAKY | [facility] | [address] | | | TESTS | | | [...] [facility] | [address] | [place], [place] | | | L[place] POINT OF CARE | [address] | [address] | | | TESTS | | | [...] [facility] | [address] | [place] [address] | | | SERVICES, CORE | PARK [...] [facility] | [address] | [place] [address] | | | SERVICES, CORE | PARK [...] | [facility] | [address] | [place] [address] | | | SERVICES, CORE | [address] | | | + + + + + MAGNESIUM, PLASMA (11/15/2015 5:49 AM PDT) + +-------+ + + + | Component | Value | Ref Range | Performed | Pathologist | | | | | At | Signature | + +-------+ + + + | MAGNESIUM,P | 2.2 | 1.8 - 2.5 mg/dL | [facility] | | | LASMA | | | [...] | [facility] | [address] | [place] [address] | | | SERVICES, CORE | PARK [...] | + + + + + | [facility] | [address] | [place] [address] | | | SERVICES, CORE | LESLY [...] [facility] | [address] | [place], [place] | | | [facility] | [address] | [address] | | | TESTS | | | [...] | [facility] | [address] | [place] [address] | | | LYDIA RANGEL | LESLY [...] [facility] | [address] | [place], [place] | | | [facility] | [address] | [id number] | | | TESTS | | | [...] KWAKU | [address] | [place], [place] | | | JUSTINE DAWN OF JAKY | [facility] | [address] | | | TESTS | | | [...] | [facility] | [address] | [place] [address] | | | SERVICES, [facility] | [address] | | | + [...] YAKOVAM | [address] | [place], [place] | | | [place] POINT OF CARE | [address] | [address] | | | TESTS | | | [...] [facility] | [address] | [place] [address] | | | SERVICES, CORE | PARK [...] | [facility] | [address] | [place] [address] | | | SERVICES, CORE | LESLY [...] [facility] | [address] | [place] [address] | | | SERVICES, CORE | PARK [...] | [facility] | [address] | [place] [address] | | | SERVICES, LYDIA | LESLY [...] MARQUAM | [address] | [place], [place] | | | JUSTINE DAWN OF CARE | [facility] | [address] | | | TESTS | | | [...] MARQUAM | [address] | [place], [place] | | | JUSTINE DAWN OF JAKY | [facility] | [address] | | | TESTS | | | [...] AMES | [address] | [place], [place] | | | [place] POINT OF CARE | [address] | [address] | | | TESTS | | | [...] MARQUAM | [address] | [place], [place] | | | [facility] | [facility] | [address] | | | TESTS | | | [...] | + + + + + | [facility] | [address] | [place] [address] | | | SERVICES, CORE | PARK [...] | [facility] | [address] | [place] [address] | | | SERVICES, CORE | LESLY [...] | [facility] | [address] | [place] [address] | | | LYDIA RANGEL | LESLY [...] [facility] | [address] | [place] [address] | | | SERVICES, CORE | LESLY [...] [facility] | [address] | [place] [address] | | | SERVICES, CORE | PARK [...] equation recommended by the | [facility] | | National Kidney Disease Education Program. [...] | [facility] | [address] | [place] [address] | | | SERVICES, CORE | [address] | | | + + + + + MAGNESIUM, PLASMA (11/12/2015 11:47 PM PDT) + +-------+ + + + | Component | Value | Ref Range | Performed | Pathologist | | | | | At | Signature | + +-------+ + + + | MAGNESIUM,P | 2.3 | 1.8 - 2.5 mg/dL | [facility] | | | LASMA | | | [...] [facility] | [address] | [place] [address] | | | SERVICES, CORE | PARK [...] equation recommended by the | [facility] | | National Kidney Disease Education Program. [...] | [facility] | [address] | [place] [address] | | | LYDIA RANGEL | LESLY [...] AMES | [address] | [place], [place] | | | [place] [facility]INT OF CARE | [address] | [address] | | | TESTS | | | [...] AMES | [address] | [place], [place] | | | JUSTINE DAWN OF JAKY | [address] | [address] | | | TESTS | | | [...] KWAKU | [address] | [place], [place] | | | JUSTINE DAWN OF CARE | [facility] | [address] | | | TESTS | | | [...] YAKOVAM | [address] | [place], [place] | | | [place] [facility]INT OF CARE | [address] | [address] | | | TESTS | | | [...] + + + | [facility] | [address] | [place] [address] | | | SERVICES, CORE | LESLY [...] + | [facility] | [address] | [place] [address] | | | SERVICES, CORE | LESLY [...] [facility] | [address] | [place] [address] | | | SERVICES, CORE | PARK [...] + + + | [facility] | [address] | [place] [address] | | | LYDIA RANGEL | LESLY [...] - [facility] | [address] | [place], [place] | | | [facility] | [address] | [address] | | | TESTS | | | [...] [facility] | [address] | [place] [address] | | | SERVICES, CORE | PARK [...] + | [facility] | [address] | [place] [address] | | | SERVICES, CORE | PARK [...] [facility] | [address] | [place] [address] | | | SERVICES, CORE | LESLY [...] | [facility] | [address] | [place] [address] | | | SERVICES, CORE | LESLY [...] AMES | [address] | [place], [place] | | | JUSTINE DAWN OF CARE | [address] | [address] | | | TESTS | | | [...] YAKOVAM | [address] | [place] | | | [place]INT OF CARE | [address] | [address] | | | TESTS | | | [...] | [facility] | [address] | [place] [address] | | | CLAIRE, LYDIA | LESLY [...] AMES | [address] | [place], [place] | | | [place] [facility]INT OF CARE | [address] | [address] | | | TESTS | | | [...] | + + + + + | [facility] | [address] | [place] [address] | | | SERVICES, CORE | LESLY [...] | [facility] | [address] | [place] [address] | | | SERVICES, CORE | LESLY [...] [facility] | [address] | [place] [address] | | | SERVICES, CORE | PARK [...] + + + | [facility] | [address] | [place] [address] | | | LYDIA RANGEL | LESLY [...] KWAKU | [address] | [place], [place] | | | [facility] | [address] | [address] | | | TESTS | | | [...] | [facility] | [address] | [place] [address] | | | SERVICES, CORE | PARK [...] AMES | [address] | [place], [place] | | | JUSTINE DAWN OF JAKY | [facility] | [address] | | | TESTS | | | [...] KWAKU | [address] | [place], [place] | | | [facility] | [address] | [address] | | | TESTS | | | [...] | [facility] | [address] | [place] [address] | | | SERVICES, CORE | LESLY [...] AMES | [address] | [place], [place] | | | JUSTINE DAWN OF JAKY | [address] | [address] | | | TESTS | | | [...] | + + + + + | [facility] | [address] | [place] [address] | | | LYDIA RANGEL | LESLY [...] | [facility] | [address] | [place] [address] | | | LYDIA RANGEL | LESLY [...] [facility] | [address] | [place] [address] | | | SERVICES, CORE [...] the MDRD equation recommended by the | [facility] | | National Kidney Disease Education Program. [...] | [facility] | [address] | [place] [address] | | | LYDIA RANGEL | LESLY [...] NKECHI ROBERTS | [address] | [place] [address] | | | SERVICES, CORE | PARK [...] | + + + + + | [facility] | [address] | [place] [address] | | | SERVICES, CORE | LESLY [...] MARQU[facility] | [address] | [place], [place] | | | JUSTINE DAWN OF CARE | [address] | [address] | | | TESTS | | | [...] NKECHI AMES | [address] | [place], [place] | | | [place] POINT OF CARE | [address] | [address] | | | TESTS | | | | + + + + + X-RAY PORTABLE CHEST PICC LINE CHECK (11/09/2015 3:12 PM PDT) + + + + + + | Component | Value | Ref Range | Performed | Pathologist | | | | | At | Signature | + + + + + + | XRAY | EXAM: MN CHEST PICC LINE | | | | [...] Anasarca A41.9 Sepsis, due to unspecified organism ([facility]) I50.9 Heart | | | failure, unspecified ([facility]) I82.402 DVT (deep venous thrombosis), | | | left ([facility]) PICC/Midline Insertion Procedure Note | | | Indications:Frequent lab draws and Administration IV fluids and meds | | | Procedure location: Unit:[facility] Room: 13 Providers: PICC Nurse | | [...] verifies correct patient, procedure, equipment, community support worker | | | and site/side marked as [...] | area Cephalic vein. Catheter lot number: [id number] with a length of | | | [...] MARQUAM | [address] | [place], [place] | | | [facility] | [facility] | [address] | | | TESTS | | | [...] | + + + + + | [facility] | [address] | [place] [address] | | | SERVICES, CORE | LESLY [...] MARQUAM | [address] | [place], [place] | | | JUSTINE DAWN OF CARE | [address] | [address] | | | TESTS | | | [...] [facility] | [address] | [place] [address] | | | SERVICES, CORE | [address] | | | + + + + + INR (11/09/2015 6:19 AM PDT) + +-------+ + + + | Component | Value | Ref Range | Performed | Pathologist | | | | | At | Signature | + +-------+ + + + | INR | 1.20 | 0.90 - 1.20 INR | [facility] | | | | | | [facility] [...] + | [facility] | [address] | [place] [address] | | | SERVICES, CORE | PARK [...] | [facility] | [address] | [place] [address] | | | SERVICES, CORE | LESLY [...] | [facility] | [address] | [place] [address] | | | SERVICES, CORE | LESLY [...] AMES | [address] | [place], [place] | | | JUSTINE DAWN OF JAKY | [address] | [address] | | | TESTS | | | [...] MARQUAM | [address] | [place], [place] | | | JUSTINE DAWN OF CARE | [address] | [address] | | | TESTS | | | [...] [facility] | [address] | [place] [address] | | | SERVICES, CORE | PARK [...] [facility] | [address] | [place] [address] | | | SERVICES, CORE | PARK [...] | [facility] | [address] | [place] [address] | | | LYDIA RANGEL | LESLY [...] KWAKU | [address] | [place], [place] | | | [facility] | [address] | [address] | | | TESTS | | | [...] AMES | [address] | [place], [place] | | | JUSTINE DAWN OF JAKY | [facility] | [address] | | | TESTS | | | [...] - [facility] | [address] | [place], [place] | | | [facility] | [facility] | [address] | | | TESTS | | | [...] [facility] | [address] | [place] [address] | | | SERVICES, CORE | PARK [...] + + + | [facility] | [address] | [place] [address] | | | SERVICES, CORE | LESLY [...] [facility] | [address] | [place] [address] | | | SERVICES, CORE | [address] | | | + + + + + INR (11/08/2015 6:27 AM PDT) + +-------+ + + + | Component | Value | Ref Range | Performed | Pathologist | | | | | At | Signature | + +-------+ + + + | INR | 1.20 | 0.90 - 1.20 INR | [facility] | | | | | | [facility] [...] | [facility] | [address] | [place] [address] | | | SERVICES, CORE | [address] | | | + + + + + MAGNESIUM, PLASMA (11/08/2015 6:27 AM PDT) + +-------+ + + + | Component | Value | Ref Range | Performed | Pathologist | | | | | At | Signature | + +-------+ + + + | MAGNESIUM,P | 2.1 | 1.8 - 2.5 mg/dL | [facility] [...] | [facility] | [address] | [place] [address] | | | SERVICES, CORE | LESLY [...] [facility] | [address] | [place] [address] | | | SERVICES, CORE | PARK [...] | [facility] | [address] | [place] [address] | | | SERVICES, CORE | LESLY [...] KWAKU | [address] | [place], [place] | | | JUSTINE DAWN OF JAKY | [facility] | [address] | | | TESTS | | | [...] | [facility] | [address] | [place] [address] | | | SERVICES, LYDIA | LESLY [...] [facility] | [address] | [place], [place] | | | [facility] POINT OF CARE | [address] | [address] | | | TESTS | | | [...] AMES | [address] | [place], [place] | | | [facility] POINT OF CARE | [address] | [address] | | | TESTS | | | [...] DEPT OF | [address] | [place], [place] | | | CARDIOLOGY | [address] | [address] | | + + + + + [...] MARQUAM | [address] | [place], [place] | | | HILL, POINT OF CARE | [facility] | [address] | | | TESTS | | | [...] + + + | [facility] | [address] | [place] [address] | | | SERVICES, LYDIA | LESLY [...] | [facility] | [address] | [place] [address] | | | SERVICES, LYDIA | [address]ES[address] [...] + + | [facility] | [address] | [place] [address] | | | LYDIA RANGEL | LESLY [...] [facility] | [address] | [place], [place] | | | JUSTINE DAWN [facility] CARE | [facility] | [address] | | | TESTS | | | [...] [facility] | [address] | [place] [address] | | | SERVICES, CORE | PARK [...] [facility] | [address] | [place] [address] | | | SERVICES, CORE | LESLY [...] [facility] | [address] | [place] [address] | | | SERVICES, CORE | PARK [...] | [facility] | [address] | [place] [address] | | | SERVICES, CORE | LESLY [...] AMES | [address] | [place], [place] | | | [facility]WN [facility]AKY | [address] | [address] | | | TESTS | | | [...] + + | [facility] | [address] | [place] [address] | | | SERVICES, CORE | LESLY [...] | [facility] | [address] | [place] [address] | | | SERVICES, CORE | LESLY [...] | [facility] | [address] | [place] [address] | | | SERVICES, CORE | PARK [...] | [facility] | [address] | [place] [address] | | | SERVICES, CORE | PARK [...] ED | | | | | | spraying machine operator at 12:33 AM by | [...] [facility]WAKU | [address] | [place], [place] | | | JUST[facility] CARE | [address] | [address] | | | TESTS | | | [...] AMES | [address] | [place], [place] | | | [facility] | [address] | [address] | | | TESTS | | | [...] | [facility] | [address] | [place] [address] | | | SERVICES, CORE | [address] | | | + + + + + 12 LEAD ECG (11/06/2015 1:37 PM PDT) + + + + + + | Component | Value | Ref Range | Performed | Pathologist | | | | | At | Signature | + + + + + + | VENTRICULAR | 117 | bpm | [facility] | | | RATE | | [...] DEPT OF | [address] | [place], [place] | | | CARDIOLOGY | [facility] | [address] | | + + + + + [...] | [facility] | [address] | [place] [address] | | | SERVICES, CORE | PARK [...] | [facility] | [address] | [place] [address] | | | SERVICES, CORE | LES[address] [...] | [facility] | [address] | [place] [address] | | | SERVICES, CORE | PARK [...] | [facility] | [address] | [place] [address] | | | SERVICES, CORE | [address] | | | + + + + + ED INFORMATION EXCHANGE (11/06/2015 1:26 PM PDT) + + + + + + | Component | Value | Ref Range | Performed | Pathologist | | | | | At | Signature | + + + + + + | [facility] | [id number] | | [facility] | | | | [id number] | | MEDICAL | | | | [...] | 13:25 [facility] | | | [id number]. Referral; Cellulitis 09/28/2015 15:39 [facility] | | | Hospital Emergency [...] -Pain in left lower leg 09/13/2015 14:54 [facility] | | | Hospital Emergency [...] Location | | | ------ --------- 1 [facility] | | | [place] 9 [facility] 10 | | | Total Note: Visits indicate total known visits. | | | | | | --- | | + + + + + + + + | Performing | Address | City/State/Zipcode | Phone Number | | Organization | | | | + + + + + | [facility] | [address] | [place], [place] | [phone] | | [employer] | [address] | [address] | | + + + + + [...] | | | | | [facility] dose, [facility] 11/06/15 at 2230 | | PM PDT [...] | | | oral, ONCE, 1 dose, [facility] 11/08/15 | | PM PDT | [...] | | | | ONCE, 1 dose, [facility] 11/08/15 at 1900 | | PM [...]
--- OUTSIDE RECORDS SUMMARY | ~2020-02-27 | XMS | Encounter Summary ---
Demographics + + + | Address | [address] | | | [place] [address] | + + + | Home Phone [...] | Organization | [facility] [...] Providers + +------+ + | Care Cement Gun Operator Name | Role | Phone | [...] + + | 02/12/ | Telephone | [facility] | Camille De La Paz, | Other (Medication) | | 2020 | | NEUROLOGY [address] | MD [address] | | | | | [address] | [address] [facility] [address] | | | | | [place], [place] | [place] [address] | | | | | [address] | [phone] | | | | | [phone] | | | +--------+ + + + [...] this encounter Miscellaneous Notes Telephone Encounter - Camille De La Paz MD - 02/27/2020 12:06 PM PDTYes, stay on medicatio ns discussed and prescribed by me unless any side effects or other concerns. elephone Encounter - Concetta Gee CMA - 02/24/2020 10:36 AM PDTCalled patient regarding inbox message. Patient stated u nderstanding. She did want me to clarify with Brain Tobias if she is to stay on the same di rections of use as she is currently on the gabapentin considered by provider. Scheduled appt / virtual visit. She is also considering botox., informed her I would route message to Raza Tobias and get back to her with [...] and call her back wi th feedback. ekatherine Henson - Melissa Wise - 02/13/2020 3:04 PM PDTMistirma, is calling again for Other (Medication) and would like a call back. Additional Call Details: Calling again, please call the home number listed eleRebecca Sherman - 02/13/2020 8:16 AM PDTMisty, is calling regarding Other (Medication) and would like a call back. Additional Call Details: Stated the new medication given to her for her migraines is not wo rking. Is have dizziness and other symptoms. Please call Elzbieta back at [phone] If this is a symptom based call, was patient offered triage? Not Applicable If this is a symptom based call and you were unable to immediately transfer the call to a romeo ellis dry house operator was caller made aware that if [...] | | | | | [place] [address] | | | | | | [phone] | | | | | | | | +--------+ + + + + | 03/29/ | Office | Cardiology | Sulema Altamirano | | | 2019 | Visit | | [address] | | | | | | [address] | | | | | | [place] [address] | | | | | | [phone] | | | | | | | | +--------+ + + + + documented as of this encounter Visit Diagnoses Not on filedocumented in this encounter
--- OUTSIDE RECORDS SUMMARY | ~2020-02-27 | XMS | Encounter Summary ---
Demographics + + + | Address | [address] | | | [place] [address] | + + + | Home Phone [...] [place], [place] | | | | | [address] | | + + + + + | Ellie Vang | ECON | Unknown | | + + + + + Care Team Providers + +------+ + | Care Automobile Assembly Supervisor Name | Role | Phone [...] Records | | 2019 | | [place] [address] [address] | MD [address] | Review | | | | [facility] | [facility] | | | | | [facility] | [place], [place] | | | | | [place] [address] | [address] | | | | | [place], [place] | [phone] | | | | | [address] | | | | | | [phone] | | | +--------+ + + + [...] Ave | | | | | | [place], [place] | | | | | | [address] | | | | | | [phone] | | | | | | | | +--------+ + + + + | 04/04/ | Telephone-S | Surgery | Orquidea Cristobal, | | | 2019 | cheduled | | INSTRUMENT LENS GRINDER [address] | | | | | | [place], [place] | | | | | | [address] | | | | | | [phone] | | | | | | | | +--------+ + + + + documented as of this encounter Visit Diagnoses Not on filedocumented in this encounter"
--- OUTSIDE RECORDS SUMMARY | ~2020-02-27 | XMS | Encounter Summary ---
Demographics + + + | Address | [address] | | | [place] [address] | + + + | Home Phone [...] [facility] | | | and Jeffana | + + + | Organization | [facility] | | | and [...] Team Providers + +------+ + | Care Entertainer & Comic Name | Role | Phone | + +------+ + PCP | Unavailable | + +------+ + Encounter Details +--------+ + + + + | Date | Type | Department | Care Team | Description | +--------+ + + + + | 02/14/ | Orders Only | [facility] | Augustine Fu MD | | | 2015 | | NEPHROLOGY [place] | [address] [place] | | | | | [address] | [address] [place], [place] | | | | | [place] | [address] | | | | | [address] | | | | | | [phone] | | | +--------+ + + + [...] Swain | | | | | | [place] [address] | | | | | | [phone] | | | | | | | | +--------+ + + + + | 03/29/ | Office | Cardiology | Sulema Altamirano | | | 2019 | Visit | | [address] | | | | | | [address] | | | | | | [place] [address] | | | | | | [phone] | | | | | | | [...]
--- OUTSIDE RECORDS SUMMARY | ~2020-02-27 | XMS | Encounter Summary ---
Demographics + + + | Address | [address] | | | [place] [address] | + + + | Home Phone [...] [place], [place] | | | | | [address] | | + + + + + | Ellie Vang | ECON | Unknown | | + + + + + Care Team Providers + +------+ + | Care Relationship Associate Name | Role | Phone | [...] 2015 | | Preventive at [facility] | MD [address] | | | | | [address] | [place], [place] | | | | | [facility] | [address] | | | | | and [place], | [phone] | | | | | [address] | | | | | | [facility] [place] | | | | | | [address] | | | | | | [phone] | | | +--------+ + + + [...] Ave | | | | | | [place], [place] | | | | | | [address] | | | | | | [phone] | | | | | | | | +--------+ + + + + | 04/04/ | Telephone-S | Surgery | Orquidea Cristobal, | | | 2019 | cheduled | | HYDROBLASTER [address] | | | | | | [place], [place] | | | | | | [address] | | | | | | [phone] | | | | | | | | +--------+ + + + + documented as of this encounter Visit Diagnoses Not on filedocumented in this encounter"
--- OUTSIDE RECORDS SUMMARY | ~2020-02-27 | XMS | Encounter Summary ---
Demographics + + + | Address | [address] | | | [place] [address] | + + + | Home Phone [...] [place], [place] | | | | | [address] | | + + + + + | Ellie Vang | ECON | Unknown | | + + + + + Care Team Providers + +------+ + | Care Studio Artist Name | Role | Phone | [...] | | 2020 | | [facility]ive at [facility] | MD [address] | | | | | [address] | [place], [place] | | | | | [facility] | [address] | | | | | and [place], | [phone] | | | | | [address] | | | | | | [facility] [place] | | | | | | [address] | | | | | | [phone] | | | +--------+ + + + [...] Ave | | | | | | [place], [place] | | | | | | [address] | | | | | | [phone] | | | | | | | | +--------+ + + + + | 04/04/ | Telephone-S | Surgery | Orquidea Cristobal, | | | 2019 | cheduled | | DENIAL RESOLUTION SPECIALIST [address] | | | | | | [place], [place] | | | | | | [address] | | | | | | [phone] | | | | | | | | +--------+ + + + + documented as of this encounter Visit Diagnoses Not on filedocumented in this encounter"
--- OUTSIDE RECORDS SUMMARY | ~2020-02-27 | XMS | Encounter Summary ---
Demographics + + + | Address | [address] | | | [place] [address] | + + + | Home Phone [...] + | Katalina Padilla | ECON | [address] | | | | | [place], [place] | | | | | [address] | | + + + + + | Ellie Vang | ECON | Unknown | | + + + + + Care Team Providers + +------+ + | Care Awning Finisher Name | Role | Phone | [...] Visit | Medicine Clinic at | J, WOOD BARKER | (Primary Dx); | | | | [facility] | | Dysphagia, | | | | [address] | | unspecified type; | | | | [facility] | | Hypertension, | | | | and Healing, | | unspecified type; | | | | [address] | | Hyperlipidemia, | | | | [place], [place] | | unspecified | | | | [address] | | hyperlipidemia type; | | | | [phone] | | Diastolic | | | | [...] | | Endotracheal Tube; 7; Oral; | SPRING INSPECTOR | SPRING INSPECTOR | | | Cuffed; 06/23/18; 1542 | [...] encounter Patient Instructions Patient Instructions Tiara Mckeon, WOOD BARKER - 06/16/2018 3:15 PM PST PREOPERATIVE INSTRUCTIONS [...] [facility], ninth floor [facility] Surgery Check in Time: The [...] it is after office hours, call the [facility] well services operator at [phone] and ask them to page him or [...] weight loss and diuretic tx, follows with autotransfusionist Hypothyroidism stabilized on hormone replacement Type 2 [...] failure no electrolyte abnormalities no dialysis Urology/Field Marketing Associate: Urologic Conditions: nephrolithiasis Endo: Diabetes: type 2 [...] sublingual Place under tongue once daily. CALCIUM CRB&PDO-A1-MRJ83-GENIS ORAL Take 2 tablets by mouth two [...] Brian Incisional hernia repair 03/01/2015 [facility]/ Dr. Cantu. 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 Appears comp ensated today. Hypothyroidism stabilized on hormone replacement. Take on DOS as usual Type 2 diabetes, well controlled with A1c 6.1 Thank you for the opportunity to contribute to this patient's care. HILDA Lagos [facility] 4TH FLOOR [address] [facility] [place] [address] I advised the [...] [place] | | | | | | [address] | | | | | | [phone] | | | | | | | | +--------+ + + + + | 04/04/ | Telephone-S | Surgery | Orquidea Cristobal, | | | 2019 | [facility] | | WOOD BARKER [address] | | | | | | [place], [place] | | | | | | [address] | | | | | | [phone] | | | | | | | [...]
--- OUTSIDE RECORDS SUMMARY | ~2020-02-27 | XMS | Encounter Summary ---
Demographics + + + | Address | [address] | | | [place] [address] | + + + | Home Phone [...] [place], [place] | | | | | [address] | | + + + + + | Ellie Vang | ECON | Unknown | | + + + + + Care Team Providers + +------+ + | Care Food Sampler Name | Role | Phone | + [...] | | Preventive at [facility] | [address] | Request (Ericxiga 5 | | | | [address] | [place], [place] | mg) | | | | [facility] | [address] | | | | | and [place], | [phone] | | | | | [place] [address] | | | | | | [place], [place] | | | | | | [address] | | | | | | [phone] | | | +--------+ + + + [...] [address] | | | | | | [place], [place] | | | | | | [address] | | | | | | [phone] | | | | | | | | +--------+ + + + + | 04/04/ | Telephone-S | Surgery | Orquidea Cristobal, | | | 2020 | sherrill | | ENGINEERING SUPPLIES SALES [address] | | | | | | [place], [place] | | | | | | [address] | | | | | | [phone] | | | | | | | | +--------+ + + + + documented as of this encounter Visit Diagnoses Not on filedocumented in this encounter"
--- OUTSIDE RECORDS SUMMARY | ~2020-02-27 | XMS | Encounter Summary ---
Demographics + + + | Address | [address] | | | [place] [address] | + + + | Home Phone [...] [place], [place] | | | | | [address] | | + + + + + | Ellie Vang | ECON | Unknown | | + + + + + Care Team Providers + +------+ + | Care Steward/Stewardess Second Class Name | Role | Phone | [...] | | 2014 | | Preventive at [facility] | MD [address] | | | | | [address] | [place], [place] | | | | | [facility] | [address] | | | | | and [address]rick | [phone] | | | | | [place] [address] | | | | | | [place], [place] | | | | | | [address] | | | | | | [phone] | | | +--------+ + + + [...] [address] | | | | | | [place], [place] | | | | | | [address] | | | | | | [phone] | | | | | | | | +--------+ + + + + | 04/04/ | Telephone-S | Surgery | Orquidea Cristobal, | | | 2020 | sherrill | | OPERATIONS GENERAL AGENT [address] | | | | | | [place] | | | | | | [address] | | | | | | [phone] | | | | | | | | +--------+ + + + + documented as of this encounter Visit Diagnoses Not on filedocumented in this encounter"
--- OUTSIDE RECORDS SUMMARY | ~2020-02-27 | XMS | Encounter Summary ---
Demographics + + + | Address | [address] | | | [place] [address] | + + + | Home Phone [...] [place], [place] | | | | | [address] | | + + + + + | Ellie Vang | ECON | Unknown | | + + + + + Care Team Providers + +------+ + | Care Suppository Molding Machine Operator Name | Role | [...] | Event | PRINCE Grace | RMD [address] | | | | | [facility] | [address] | | | | | Hospital Admitting | [place], [place] | | | | | Desk Located on the | [address] | | | | | 9th floor | [phone] | | | | | [place], [place] | | | | | | [address] | Marcial Brunner CRNA | | | | | | [address] | | | | | | Lesly Gutiérrez [facility] | | | | | | [place] [address] | | | | | | [phone] | | | | | | | [...] [address] | | | | | | [place], [place] | | | | | | [address] | | | | | | [phone] | | | | | | | | +--------+ + + + + | 04/04/ | Telephone-S | Surgery | Orquidea Cristobal, | | | 2019 | cheduled | | GENERAL INTERN [address] | | | | | | [place], [place] | | | | | | [address] | | | | | | [phone] | | | | | | | [...] 11:46 | | | | | Starting [facility] 03/01/15 at 1146, | | AM PDT | | | | | Until [facility] 03/01/15 at 1204 | | | | [...]
--- OUTSIDE RECORDS SUMMARY | ~2020-02-27 | XMS | Encounter Summary ---
Demographics + + + | Address | [address] | | | [place] [address] | + + + | Home Phone [...] [place], [place] | | | | | [address] | | + + + + + | Ellie Vang | ECON | Unknown | | + + + + + Care Team Providers + +------+ + | Care Binding Nicker Name | Role | Phone | + [...] 2014 | | Center at [facility] [address] | [address] | (11/03 and 11/06 phone | | | | [address] [facility] | Lesly Gutiérrez [place], | calls) | | | | for Health and | [place] [address] | | | | | [place] [address] | [phone] | | | | | [place], [place] | | | | | | [address] | | | | | | [phone] | | | +--------+ + + + [...] Ave | | | | | | [place], [place] | | | | | | [address] | | | | | | [phone] | | | | | | | | +--------+ + + + + | 04/04/ | Telephone-S | Surgery | Orquidea Cristobal, | | | 2019 | cheduled | | ALUMINUM WELDER [address] | | | | | | [place], [place] | | | | | | [address] | | | | | | [phone] | | | | | | | | +--------+ + + + + documented as of this encounter Visit Diagnoses Not on filedocumented in this encounter"
--- OUTSIDE RECORDS SUMMARY | ~2020-02-27 | XMS | Encounter Summary ---
Demographics + + + | Address | [address] | | | [place] [address] | + + + | Home Phone [...] [place], [place] | | | | | [address] | | + + + + + | Ellie Vang | ECON | Unknown | | + + + + + Care Team Providers + +------+ + | Care Lacrosse Coach Name | Role | Phone | + +------+ + | Kenyatta Cardenas MD | PCP | | + +------+ + Encounter Details +--------+ + + + + | Date | Type | Department | Care Team | Description | +--------+ + + + + | 03/10/ | Pharmacy | [facility] | | | | 2018 | Visit | [facility] | | | | | | [address] | | | | | | Mailcode: Center | | | | | | [facility] and | | | | | | [facility], [facility] [address] | | | | | | [place], [place] | | | | | | [address] | | | | | | [phone] | | | +--------+ + + + [...] | | 2020 | Visit | | [address] | | | | | | [place], [place] | | | | | | [address] | | | | | | [phone] | | | | | | | | +--------+ + + + + | 04/04/ | Telephone-S | Surgery | Orquidea Cristobal, | | | 2019 | cheduled | | REPAIRER WELDING EQUIPMENT [address] | | | | | | [place], [place] | | | | | | [address] | | | | | | [phone] | | | | | | | | +--------+ + + + + documented as of this encounter Visit Diagnoses Not on filedocumented in this encounter"
--- OUTSIDE RECORDS SUMMARY | ~2020-02-27 | XMS | Encounter Summary ---
Demographics + + + | Address | [address] | | | [place] [address] | + + + | Home Phone [...] [place], [place] | | | | | [address] | | + + + + + | Ellie Vang | ECON | Unknown | | + + + + + Care Team Providers + +------+ + | Care Hydrological Technical Officer Name | Role | Phone | + +------+ + | Kenyatta Cardenas MD | PCP | | + +------+ + Encounter Details +--------+ + + + + | Date | Type | Department | Care Team | Description | +--------+ + + + + | 05/28/ | Phillip | NKECHI DUMAS at [facility] | Lab, Gi Procedure | | | 2018 | on | [place] [address] | | | | | | [facility] | | | | | | [facility] and Healing, | | | | | | Building [address] | | | | | | [place], [place] | | | | | | [address] | | | | | | [phone] | | | +--------+ + + + [...] [address] | | | | | | [place], [place] | | | | | | [address] | | | | | | [phone] | | | | | | | | +--------+ + + + + | 04/04/ | Telephone-S | Surgery | Orquidea Cristobal, | | | 2019 | sherrill | | COMMUTER TRAIN OPERATOR [address] | | | | | | [place], [place] | | | | | | [address] | | | | | | [phone] | | | | | | | | +--------+ + + + + documented as of this encounter Visit Diagnoses Not on filedocumented in this encounter"
--- OUTSIDE RECORDS SUMMARY | ~2020-02-27 | XMS | Encounter Summary ---
Demographics + + + | Address | [address] | | | [place] [address] | + + + | Home Phone [...] + + | Author | [facility] | | | and [place]ana | + + + | Organization | [facility] | | | and [...] Team Providers + +------+ + | Care Teaching Artist Name | Role | Phone | + +------+ + | Jorje Hill | PCP | | + +------+ + Reason for Visit +--------+--------+ + | Reason | Onset | Comments | | | Date | | +--------+--------+ + | Pre-Op | 06/21/ | confirm arrival for 06/22 procedure | | | 2019 | | +--------+--------+ + Encounter Details +--------+ + + + + | Date | Type | Department | Care Team | Description | +--------+ + + + + | 06/21/ | Telephone | [facility] | Christian Dawson, | Pre-Op (confirm | | 2018 | | CENTER CV INTRA OP | MD [address] | arrival for 06/22 | | | | [address] [facility] | DMITRI GUTIERREZ, | procedure) | | | | [place] | [place] [address] | | | | | [address] | [phone] | | | | | [phone] | | | +--------+ + + + [...] | | | | | [place] [address] | | | | | | [phone] | | | | | | | | +--------+ + + + + | 03/29/ | Office | Cardiology | Sulema Altamirano | | | 2019 | Visit | | [address] | | | | | | [address] | | | | | | [place] [address] | | | | | | [phone] | | | | | | | | +--------+ + + + + documented as of this encounter Visit Diagnoses Not on filedocumented in this encounter"
--- OUTSIDE RECORDS SUMMARY | ~2020-02-27 | XMS | Encounter Summary ---
[...] [place], [place] | | | | | [address] | | + + + + + | Ellie Vang | ECON | Unknown | | + + + + + Care Team Providers + +------+ + | Care Electrical Electronics Technician Name | Role | Phone | [...] | | | | | [place], [place] | | | | | | [address] | | | | | | [phone] | | | +--------+ + + + [...] Ave | | | | | | [place], [place] | | | | | | [address] | | | | | | [phone] | | | | | | | | +--------+ + + + + | 04/04/ | Telephone-S | Surgery | Orquidea Cristobal, | | | 2019 | sherrill | | ENGRAVER BLOCK [address] | | | | | | [place], [place] | | | | | | [address] | | | | | | [phone] | | | | | | | | +--------+ + + + + documented as of this encounter Visit Diagnoses Not on filedocumented in this encounter"
--- OUTSIDE RECORDS SUMMARY | ~2020-02-27 | XMS | Encounter Summary ---
Demographics + + + | Address | [address] | | | [place] [address] | + + + | Home Phone [...] [place], [place] | | | | | [address] | | + + + + + | Ellie Vang | ECON | Unknown | | + + + + + Care Team Providers + +------+ + | Care Covering Machine Operator Helper Name | Role | [...] [address] | | | | | [place] at | [place], [place] | | | | | [place] [address] | [address] | | | | | [facility] | [phone] | | | | | [facility] | | | | | | [place], [place] | | | | | | [address] | | | | | | [phone] | | | +--------+--------+ + + + [...] [address] | | | | | | [place], [place] | | | | | | [address] | | | | | | [phone] | | | | | | | | +--------+ + + + + | 04/04/ | Telephone-S | Surgery | Orquidea Cristobal, | | | 2019 | cheduled | | EDUCATIONAL TECHNOLOGY SPECIALIST [address] | | | | | | [place], [place] | | | | | | [address] | | | | | | [phone] | | | | | | | | +--------+ + + + + documented as of this encounter Visit Diagnoses Not on filedocumented in this encounter"
--- OUTSIDE RECORDS SUMMARY | ~2020-02-27 | XMS | Encounter Summary ---
Demographics + + + | Address | [address] | | | [place] [address] | + + + | Home Phone [...] [place], [place] | | | | | [address] | | + + + + + | Ellie Vang | ECON | Unknown | | + + + + + Care Team Providers + +------+ + | Care Lathe Spotter Name | Role | Phone | + [...] | | 2014 | | Preventive at [facility] | MD [address] | (Phentermine); | | | | [address] | [place], [place] | Refill Request | | | | [facility] | [address] | | | | | and [address], | [phone] | | | | | [address] [address] | | | | | | [place], [place] | | | | | | [address] | | | | | | [phone] | | | +--------+--------+ + + + [...] [address] | | | | | | [place], [place] | | | | | | [address] | | | | | | [phone] | | | | | | | | +--------+ + + + + | 04/04/ | Telephone-S | Surgery | Orquidea Cristobal, | | | 2019 | sherrill | | DIRECTOR OF SUSTAINABLE DESIGN [address] | | | | | | [place] | | | | | | [address] | | | | | | [phone] | | | | | | | | +--------+ + + + + documented as of this encounter Visit Diagnoses Not on filedocumented in this encounter"
--- OUTSIDE RECORDS SUMMARY | ~2020-02-27 | XMS | Encounter Summary ---
Demographics + + + | Address | [address] | | | [place] [address] | + + + | Home Phone [...] Team Providers + +------+ + | Care Patch Sander Name | Role | Phone | [...] + + | 06/27/ | Telephone | [facility] | Dharmesh Fierro, | Follow-up(Procedure) | | 2019 | | INTERVENTIONAL | RN | | | | | RADIOLOGY [address] | | | | | | [address] | | | | | | [place] | | | | | | [address] | | | | | | [phone] | | | +--------+ + + + [...] | | | | Visit | | [facility] | | | | | | [facility] [place] [address] | | | | | | [phone] | | | | | | | | +--------+ + + + + | 03/29/ | Office | Cardiology | Sulema Altamirano | | 2019 | Visit | | [address] | | | | | | [address] | | | | | | [place] [address] | | | | | | [phone] | | | | | | | | +--------+ + + + + documented as of this encounter Visit Diagnoses Not on filedocumented in this encounter"
--- OUTSIDE RECORDS SUMMARY | ~2020-02-27 | XMS | Encounter Summary ---
Demographics + + + | Address | [address] | | | [place] [address] | + + + | Home Phone [...] [place], [place] | | | | | [address] | | + + + + + | Ellie Vang | ECON | Unknown | | + + + + + Care Team Providers + +------+ + | Care Survey And Mapping Technician Name | Role | Phone | [...] | | | | | (HCC) | [place], [place] | Hospital, | | | | | Procedures | [address] | 10th Floor | | | | | CT ABDOMEN & | Phone: | [place], [place] | | | | | PELVIS [address] | | [address] | | | | | IV CONTRAST | Fax: | Phone: | | | | | PA CT | [phone] | [phone] | | | | | ABDOMEN&PELV | | Fax: | | | | | IS | | [phone] | | | | | W/CONTRAST | [...] | | | | | | | [facility] | | | | | | | Health and | | | | | | | Healing, | | | | | | | Building [address] | | | | | | | [place], [place] | | | | | | | [address] | | | | | | | Phone: | | | | | | | [phone] | | | | | | | Fax: | | | | | | | [phone] | +--------+--------+ + + + + Encounter Details +--------+---------+ + + + | Date | Type | Department | Care Team | Description | +--------+---------+ + + + | 10/02/ | Office | Digestive Health | Shereen Georges, | Abdominal pain | | 2015 | Visit | Center at [facility] [address] | ACNP [address] | (Primary Dx); Morbid | | | | [address] | Ave [place], [place] | obesity (HCC) | | | | for Health and | [address] | | | | | [facility], [facility] | [phone] | | | | | [place], [place] | | | | | | [address] | | | | | | [phone] | | | +--------+---------+ + + + [...] up in th e air, Use a examining chair assembler.... And get it really dry. Then use corn starch ..... Then use medicated powder... Please go to the 3rd floor for the study... [place] [phone] documented in this encounter Progress Notes Shereen Pinto ACNP - 10/02/2014 11:14 AM PDTFormatting of this note might be different fro m the original. BARIATRIC INITIAL VISIT Provider: Shereen Blair DNP, ACNP, METAL BONDING WORKER Referring Provider: Dr. Goodrich Reason for Requested [...] the surgeon. Shereen Pinto DNP, ACNP, METAL BONDING WORKER Nurse Practitioner for Bariatric Surgery [facility] | [address] | [place], [place] | [address] | Potential Contraindications to Bariatric Surgery Age [...] other providers does not guarantee that the [facility] Bariatric Surger y program will deem you [...] [address] | | | | | | [place], [place] | | | | | | [address] | | | | | | [phone] | | | | | | | | +--------+ + + + + | 04/04/ | Telephone-S | Surgery | Orquidea Cristobal, | | | 2019 | sherrill | | METAL BONDING WORKER [address] | | | | | | [facility] [place] | | | | | | [address] | | | | | | [phone] | | | | | | | [...]
--- OUTSIDE RECORDS SUMMARY | ~2020-02-27 | XMS | Encounter Summary ---
Demographics + + + | Address | [address] | | | [place] [address] | + + + | Home Phone [...] [place], [place] | | | | | [address] | | + + + + + | Ellie Vang | ECON | Unknown | | + + + + + Care Team Providers + +------+ + | Care Stock Buyer Name | Role | Phone | [...] [place] | | | | | | [address] | | | | | | [phone] | | | | | | | | +--------+ + + + + | 04/04/ | Telephone-S | Surgery | Orquidea Cristobal, | | | 2019 | cheduled | | MIDD[employer]CHO[employer] ART TEACHER [address] | | | | | | [place], [place] | | | | | | [address] | | | | | | [phone] | | | | | | | | +--------+ + + + + documented as of this encounter Visit Diagnoses Not on filedocumented in this encounter"
--- OUTSIDE RECORDS SUMMARY | ~2020-02-27 | XMS | Encounter Summary ---
Demographics + + + | Address | [address] | | | [place] [address] | + + + | Home Phone [...] [place], [place] | | | | | [address] | | + + + + + | Ellie Vang | ECON | Unknown | | + + + + + Care Team Providers + +------+ + | Care Team Lead Name | Role | Phone [...] | | | | | | [facility] | | | | | | | [facility] and | | | | | | | Healing, | | | | | | | Building [address] | | | | | | | [place], [place] | | | | | | | [address] | | | | | | | Phone: | | | | | | | [phone] | | | | | | | Fax: | | | | | | | [phone] | +--------+--------+ + + + + Encounter Details +--------+---------+ + + + | Date | Type | Department | Care Team | Description | +--------+---------+ + + + | 06/16/ | Office | Digestive Health | Shereen Georges, | Morbid obesity with | | 2012 | Visit | Center at [facility] [address] | ACNP [address] | BMI of 70 and over, | | | | [address] | Ave [place], [place] | adult (HCC) (Primary | | | | for Health and | [address] | Dx); Vitamin D | | | | Healing, Building 2 | | deficiency disease; | | | | [place], [place] | | Intertriginous | | | | [address] | | candidiasis; | | | | [...] Psychological Evaluation: If your referral is at [facility], pain management will call y oneil in the next week to schedule. Will [...] the time. If your referral is at [facility], they will call y ou in the next week to schedule. She will arrange 8. Nephrology Consult: Please call [facility] [employer] ([phone]) and have them send you a urine specimen container. You will need to discuss your kidney stone risk with a nephrology provid er prior to proceeding with gastric bypass. If your referral is at [facility], they will call you in the [...] at the same time: betsy Feldman RN, OPERATIONAL INTELLIGENCE OFFICER- Nurse Practitioner for Bariatric Surgery [facility] | [address] | [place], [place] | [address] | Potential Contraindications to Bariatric Surgery Age [...] providers does not guarantee that the [facility] Bariatric Surger y program will deem you a surgical candidate. documented in this encounter Progress Notes Shereen Pinto ACNP - 06/16/2013 1:28 PM PSTFormatting of this note might be different fro m the original. BARIATRIC INITIAL VISIT Provider: Shereen Pinto DNP, ACNP, OPERATIONAL INTELLIGENCE OFFICER Referring Provider: Dr. Fadi Goodrich, [place] [address] [phone] Reason for Requested Consultation: Initial evaluation for bariatric surgery. Elzbieta Farooq is interested in Frandy en y alfredo tomeka bypass. The pt is here With her sister. Following surgery her mother and sister will care for her, she will Stay in [place] after surgery so that she is close by. She lives in [place]. They have few stairs to get into [...] recently gained weight, she met with our medical insurance clerk today, she has been making poor [...] none Use of Redux or Phen/fen: no Cheondoism or cultural reason you would refuse blood [...] as well , hypertension, hyperlipidemia. Denies CHF, SD, ischemic heart disease, DVT/PE, or pulmonary hypertension. [...] the therapy. 8. Nephrology Consult: Please call [facility] ([phone]) and have them send you a urine specimen container. You will need to discuss your kidney stone risk with a nephrology provid er prior to proceeding with gastric bypass. If your referral is at [facility], they will call you in the next week to schedule. You are at increased risk of renal stones after surgery, with your history of stone, we want to check of oxalate in your urine. You will need a referral to a principal automation engineer If your level is elevated. 9. [...] soon as possible Shereen Pinto DNP ACNP, OPERATIONAL INTELLIGENCE OFFICER Nurse Practitioner for Bariatric Surgery [facility] | [address] | [place], [place] | [address] | Potential Contraindications to Bariatric Surgery Age [...] providers does not guarantee that the [facility] Bariatric Surger y program will deem [...] [place] | | | | | | [address] | | | | | | [phone] | | | | | | | | +--------+ + + + + | 04/04/ | Telephone-S | Surgery | Orquidea Cristobal, | | | 2020 | cheduled | | OPERATIONAL INTELLIGENCE OFFICER [address] | | | | | | [place], [place] | | | | | | [address] | | | | | | [phone] | | | | | | | [...] | | | | | | [employer] | | | | | | developed and | | | | | | characteristics | | | | | | determined by | | | | | | [employer]. See | | | | | | Compliance Statement B: | | | | | | [email or web address] | | | | | | by [facility],[address] | | | | | | Liliana Martinez, [facility],[place] | | | | | | [address] | | | | | | [phone]. | | | | | | com, [...] at | | | | | | [employer] Communications Test | | | | | | developed and | | | | | | characteristics | | | | | | determined by | | | | | | [employer]. See | | | | | | Compliance Statement B: | | | | | | Territorial Prescience/CS | | | | + + + + + + + + | Specimen | + + | Blood - Blood | + + + + + + + | Performing | Address | City/State/Zipcode | Phone Number | | Organization | | | | + + + + + | [facility] | [address] | [place], [place] | | | UN[facility] [place] - INTFC | | [address] | | + + + + + [...]
--- OUTSIDE RECORDS SUMMARY | ~2020-02-27 | XMS | Encounter Summary ---
Demographics + + + | Address | [address] | | | [place] [address] | + + + | Home Phone [...] [place], [place] | | | | | [address] | | + + + + + | Ellie Vang | ECON | Unknown | | + + + + + Care Team Providers + +------+ + | Care Orthotist Prosthetist Name | Role | Phone | + [...] [address] | (Phentermine) | | | | [facility] at | [place], [place] | | | | | [place] [address] | [address] | | | | | [facility] | [phone] | | | | | [facility] | | | | | | [place], [place] | | | | | | [address] | | | | | | [phone] | | | +--------+ + + + [...] [address] | | | | | | [place], [place] | | | | | | [address] | | | | | | [phone] | | | | | | | | +--------+ + + + + | 04/04/ | Telephone-S | Surgery | Orquidea Cristobal, | | | 2019 | cheduled | | SHIPPER [address] | | | | | | [place], [place] | | | | | | [address] | | | | | | [phone] | | | | | | | | +--------+ + + + + documented as of this encounter Visit Diagnoses Not on filedocumented in this encounter"
--- OUTSIDE RECORDS SUMMARY | ~2020-02-27 | XMS | Encounter Summary ---
Demographics + + + | Address | [address] | | | [place] [address] | + + + | Home Phone [...] + +------+ + | Care Manager Support Name | Role | Phone | + [...] + + | 08/17/ | Refill | [facility] | Sulema Altamirano | Medication Refill | | 2020 | | CARDIOLOGY SAIMA | [address] | | | | | [address] | [address] | | | | | [address] | [place] [address] | | | | | [place] | [phone] | | | | | [address] | | | | | | [phone] | | | +--------+--------+ + + + [...] | 2019 | Office | | MD Saumay MOE | | | | Visit | | REILLY Swain | | | | | | [place] [address] | | | | | | [phone] | | | | | | | | +--------+ + + + + | 03/29/ | Office | Cardiology | Sulema Altamirano | | | 2019 | Visit | | [address] | | | | | | [address] | | | | | | [place] [address] | | | | | | [phone] | | | | | | | | +--------+ + + + + documented as of this encounter Visit Diagnoses Not on filedocumented in this encounter"
--- OUTSIDE RECORDS SUMMARY | ~2020-02-27 | XMS | Encounter Summary ---
Demographics + + + | Address | [address] | | | [place] [address] | + + + | Home Phone [...] [place], [place] | | | | | [address] | | + + + + + | Ellie Vang | ECON | Unknown | | + + + + + Care Team Providers + +------+ + | Care Center Sales And Service Associate Name | Role | Phone [...] [facility] | [address] | Request (Ericxiga [address] | | | | [address] | [place], [place] | mg) | | | | [facility] | [address] | | | | | and [place], | [phone] | | | | | [place] [address] | | | | | | [place], [place] | | | | | | [address] | | | | | | [phone] | | | +--------+ + + + [...] [address] | | | | | | [place], [place] | | | | | | [address] | | | | | | [phone] | | | | | | | | +--------+ + + + + | 04/04/ | Telephone-S | Surgery | Orquidea Cristobal, | | | 2020 | sherrill | | SOCIAL SERVICES MANAGER [address] | | | | | | [place], [place] | | | | | | [address] | | | | | | [phone] | | | | | | | | +--------+ + + + + documented as of this encounter Visit Diagnoses Not on filedocumented in this encounter"
--- OUTSIDE RECORDS SUMMARY | ~2020-02-27 | XMS | Encounter Summary ---
Demographics + + + | Address | [address] | | | [place] [address] | + + + | Home Phone [...] [place], [place] | | | | | [address] | | + + + + + | Ellie Vang | ECON | Unknown | | + + + + + Care Team Providers + +------+ + | Care Tallier Name | Role | Phone | + [...] | | Ave Mailcode: [address] | [place], [place] | | | | | [facility] | [address] | | | | | and [address], | [phone] | | | | | [place] [address] | | | | | | Floor [place], [place] | | | | | | [address] | | | | | | [phone] | | | +--------+ + + + [...] | | | | | | [place], [place] | | | | | | [address] | | | | | | [phone] | | | | | | | | +--------+ + + + + | 04/04/ | Telephone-S | Surgery | Orquidea Cristobal, | | | 2020 | sherrill | | BARTACKER [address] | | | | | | [place] | | | | | | [address] | | | | | | [phone] | | | | | | | | +--------+ + + + + documented as of this encounter Visit Diagnoses Not on filedocumented in this encounter"
--- OUTSIDE RECORDS SUMMARY | ~2020-02-27 | XMS | Encounter Summary ---
[...] [place], [place] | | | | | [address] | | + + + + + | Ellie Vang | ECON | Unknown | | + + + + + Care Team Providers + +------+ + | Care Stack Matcher Name | Role | Phone | [...] | | | | | | [facility] | | | | | | [facility] Admitting | | | | | | Desk Located on the | | | | | | 9th floor | | | | | | [place], [place] | | | | | | [address] | | | +--------+ + + + [...] Ave | | | | | | [place], [place] | | | | | | [address] | | | | | | [phone] | | | | | | | | +--------+ + + + + | 04/04/ | Telephone-S | Surgery | Orquidea Cristobal, | | | 2019 | cheduled | | HEARING AID SPECIALIST [address] | | | | | | [place], [place] | | | | | | [address] | | | | | | [phone] | | | | | | | [...]
--- OUTSIDE RECORDS SUMMARY | ~2020-02-27 | XMS | Encounter Summary ---
Demographics + + + | Address | [address] | | | [place] [address] | + + + | Home Phone [...] [place], [place] | | | | | [address] | | + + + + + | Ellie Vang | ECON | Unknown | | + + + + + Care Team Providers + +------+ + | Care Cosmetics Presser Name | Role | Phone | [...] floor | | | | | | [place], [place] | | | | | | [address] | | | +--------+ + + + [...] Ave | | | | | | [place], [place] | | | | | | [address] | | | | | | [phone] | | | | | | | | +--------+ + + + + | 04/04/ | Telephone-S | Surgery | Orquidea Cristobal, | | | 2019 | cheduled | | TANK CARPENTER [address] | | | | | | [place], [place] | | | | | | [address] | | | | | | [phone] | | | | | | | | +--------+ + + + + documented as of this encounter Visit Diagnoses Not on filedocumented in this encounter"
--- OUTSIDE RECORDS SUMMARY | ~2020-02-27 | XMS | Encounter Summary ---
Demographics + + + | Address | [address] | | | [place] [address] | + + + | Home Phone [...] + | Katalnia Padilla | ECON | [address] | | | | | [place], [place] | | | | | [address] | | + + + + + | Ellie Vang | ECON | Unknown | | + + + + + Care Team Providers + +------+ + | Care Roll Cleaner Name | Role | Phone | [...] | | | | | bypass | [place], | [facility], | | | | | Nausea and | [place] | 10th Floor | | | | | vomiting, | [address] | [place], [place] | | | | | intractabili | Phone: | [address] | | | | | ty of | | Phone: | | | | | vomiting not | Fax: | [phone] | | | | | specified, | [phone] | Fax: | | | | | unspecified | | [phone] | | | | | vomiting | [...] | | | | | | CONTRAST [place] | | | | | | | CT SCAN OF | | | | | | | ABDOMEN | | | | | | | CONTRAST IL | | | | | | [...] | | | | | bypass | [place], | [place] for | | | | | Nausea and | [place] | Health and | | | | | vomiting, | [address] | Healing, | | | | | intractabili | Phone: | Building 1, | | | | | ty of | [phone] | 5th Floor | | | | | vomiting not | Fax: | [place], [place] | | | | | specified, | [phone] | [address] | | | | | unspecified | | Phone: | | | | | vomiting | | [phone] | | | | | type | [...] | | | | | bypass | [place], | [facility] and | | | | | Nausea and | [place] | Healing, | | | | | vomiting, | [address] | Building 2 | | | | | intractabili | Phone: | [place], [place] | | | | | ty of | | [address] | | | | | vomiting not | Fax: | Phone: | | | | | specified, | [phone] | [phone] | | | | | unspecified | | Fax: | | | | | vomiting | | [phone] | | | | | type | [...] | | | | | | | [place] UPPER GI | | | | | [...] Bariatri Surg | | | with LEAD RECREATION ASSISTANT | | hypertension | [address] | [address] | | | | | Right | [address] | [address] | | | | | heart | [place], [place] | [place] for | | | | | failure | [address] | Health and | | | | | ([facility]) Type | Phone: | Healing, | | | | | 2 diabetes | [phone] | Building 2 | | | | | mellitus | Fax: | [place], [place] | | | | | without | [phone] | [address] | | | | | complication | | Phone: | | | | | , with | | | | | | | long-term | | Fax: | | | | | current use | | [phone] | | | | | of insulin | | | | | | | ([facility]) | | | | | | | [...] | 2019 | Visit | Center at [facility] [address] | AGACNP [address] | gastric bypass | | | | [address] | Ave [place], [place] | (Primary Dx); Nausea | | | | for Health and | [address] | and vomiting, | | | | Healing, Building 2 | [phone] | intractability of | | | | [facility] [place] | | vomiting not | | | | [address] | | specified, | | | | [...] getting fluids at a local clinic in [place] -I will contact you if further testing is indicated -follow up with once of our surgeons once testing is complete -get some protein de la o--isopure or premier protein de la o. documented in this encounter Progress Notes Melissa Garay, KELSIE - 03/01/2019 1:50 PM PDTSpoke with patient's PCP office [phone] and notified them that Infusion unit at [facility] (fax [phone]) requires a provider with privileges there to sign the IV infusion orders. Since Dr. Cardenas is out on maternity leave, SOFI Ulrich will check with provider covering. Infusion order and chart not e faxed to PCP at [phone]. Patient notified. harli Zayas - 03/01/2019 1:50 [...] file Gets together: Not on file Attends buddhism service: Not on file Active member of club or organization: Not on file Attends meetings of clubs or organizations: Not on file Relationship status: Not on file Other Topics Concern Not on file Social History Narrative Updated 11/09/15 She lives in [place] with her mother and her sister (also her caregiver) lives in an apa rtment/duplex below. She has 2 grandchildren (age 4 and 7) who live with her daughter and son-in-law Her boyfriend lives in [place] HFpEF, DM2, HTN, Sleep Apnea (unable to [...] here and refer her to our medical certification specialist who also has expertise in physical [...] buccal film, , Disp: , Rfl: CALCIUM CRB&WRC-[id number]-[id number]-GENIS ORAL, Take 2 tablets by mouth two [...] be administered closer to her home in [place]. LR 1-2 L 3 times weekly, until [...] to plan and will call and/or send BitTorrent message if any issues. Start time 1422, end time 1455. I spent a total of 33 minutes face to face with this patie nt. Over 50% of visit was in counseling. ALBINA Perrin Bariatric Surgery Nurse Practitioner [facility] | [address] | [place] | [address] | documented in th is encounter Plan of Treatment +--------+ + + + + | Date | Type | Specialty | Care Team | Description | +--------+ + + + + | 03/22/ | Office | Cardiology | Randell Franks, | | | 2019 | Visit | | MD [address] | | | | | | [place], [place] | | | | | | [address] | | | | | | [phone] | | | | | | | | +--------+ + + + + | 04/04/ | Telephone-S | Surgery | Orquidea Cristobal, | | | 2019 | cheduled | | PAYABLE PROCESSOR [address] | | | | | | [place], [place] | | | | | | [address] | | | | | | [phone] | | | | | | | [...] Note | + + | Service Account, [employer] In Interface - 03/22/2019 1:04 PM [...] | [facility] | [address] | [place] [address] | | | SERVICES, LYDIA | CLARENCE [...] B: | | | | | | Alchemia Oncologylab.com/CSPerformed | | | | | | by [facility],[address] | | | | | | [facility] | | | | | | [address] | | | | | | [phone].Alchemia Oncologylab. | | | | | | cache [...] [facility] | [address] | [place], [place] | | | UN[facility] - INTFC | | [address] | | + + + + + [...] [facility] | | | (YEN NOAH) | [facility],[address] | | REG UNIV | | | SERUM | [facility] | | PTH - INTFC | | | | [address] | | | | | | [phone]. | | | | | | Ismael [...] B: | | | | | | [employer] | | | | + + + + + + + + | Specimen | + + | Blood - Blood | | (substance) | + + + + + + + | Performing | Address | City/State/Zipcode | Phone Number | | Organization | | | | + + + + + | [facility] | [address] | [place], [place] | | | UN[facility] [place] INT[place] | | [address] | | + + + + + [...] | + + + + + | [facility] | [address] | [place] [address] | | | SERVICES, CORE | PARK [...] | [facility] | [address] | [place] [address] | | | SERVICES, CORE | CLARNECE [...] B: | | | | | | [employer].Quick TV/CSPerformed | | | | | | by [employer] [facility],[address] | | | | | | [facility],[place] | | | | | | [address] | | | | | | [phone].[employer]. | | | | | | [...] [facility] | [address] | [place], [place] | | | UN[facility] [place] [place] | | [address] | | + + + + + [...] INTFC | | | | determined by [facility] | | | | | | Laboratories. See | | | | | | Compliance Statement B: | | | | | | [employer].Quick TV/CSPerformed | | | | | | by [employer],[address] | | | | | | [address], [facility],[place] | | | | | | [address] | | | | | | [phone].[employer] Technology. | | | | | | cache [...] [facility] | [address] | [place], [place] | | | UN[facility] [place] [place] | | [address] | | + + + + + [...] [facility] | [address] | [place] [address] | | | SERVICES, CORE | CLARENCE [...] B: | | | | | | [employer].Quick TV/CSPerformed | | | | | | by [employer],[address] | | | | | | [address] [facility],[place] | | | | | | [address] | | | | | | [phone].[employer]. | | | | | | [...] [facility] | [address] | [place], [place] | | | UNIV P[facility] - [place] | | [address] | | + + + + + [...] [facility] | [address] | [place] [address] | | | SERVICES, CORE | PARK [...] [facility] | [address] | [place] [address] | | | SERVICES, CORE | PARK [...] | [facility] | [address] | [place] [address] | | | SERVICES, SPECIAL | CLARENCE [...] + | [facility] | [address] | [place] [address] | | | SERVICES, CORE [...] [place] | | | | | | [address] | | | | | | [phone]. | | | | | | Ismael [...] [facility] | [address] | [place], [place] | | | UN[facility] P[facility] - INT[place] | | [address] | | + + + + + [...] | | | LABORATORY | | | RWANDAN | | | SERVICES, | | | [...] | + + + + + | [facility] | [address] | [place] [address] | | | SERVICES, LYDIA | CLARENCE [...]
--- OUTSIDE RECORDS SUMMARY | ~2020-02-27 | XMS | Encounter Summary ---
Demographics + + + | Address | [address] | | | [place] [address] | + + + | Home Phone [...] [place], [place] | | | | | [address] | | + + + + + | Ellie Vang | ECON | Unknown | | + + + + + Care Team Providers + +------+ + | Care Data Control Assistant Name | Role | Phone | [...] Records | | 2019 | | Center [place] [address] [address] | MD [address] | Review | | | | [facility] | [facility] | | | | | [facility] and | [place], [place] | | | | | [place] [address] | [address] | | | | | [place], [place] | [phone] | | | | | [address] | | | | | | [phone] | | | +--------+ + + + [...] Ave | | | | | | [place], [place] | | | | | | [address] | | | | | | [phone] | | | | | | | | +--------+ + + + + | 04/04/ | Telephone-S | Surgery | Orquidea Cristobal, | | | 2019 | cheduled | | GRAIN MILL WORKER [address] | | | | | | [place], [place] | | | | | | [address] | | | | | | [phone] | | | | | | | | +--------+ + + + + documented as of this encounter Visit Diagnoses Not on filedocumented in this encounter"
--- OUTSIDE RECORDS SUMMARY | ~2020-02-27 | XMS | Encounter Summary ---
Demographics + + + | Address | [address] | | | [place] [address] | + + + | Home Phone [...] [place], [place] | | | | | [address] | | + + + + + | Ellie Vang | ECON | Unknown | | + + + + + Care Team Providers + +------+ + | Care Aerial Installer Name | Role | Phone [...] Center | | | | | | [place], [place] | | | | | | [address] | | | | | | [phone] | | | +--------+ + + + [...] [address] | | | | | | [place], [place] | | | | | | [address] | | | | | | [phone] | | | | | | | | +--------+ + + + + | 04/04/ | Telephone-S | Surgery | Orquidea Cristobal, | | | 2019 | sherrill | | CHURCH ORGANIST [address] | | | | | | [place], [place] | | | | | | [address] | | | | | | [phone] | | | | | | | [...] | | | | | | | [place], [place] | | | | | | [address] | | | | | | DrRenee [...] | | | | artery. A 5.5 Tamazight | | | | | | Ozzy catheter was | | | | | | navigatedover a 0.035" | | | | | | Donla coated Bentson | | | | | [...] | | + +---------+ + + | [facility] DEPARTMENT OF | | | | | RADIOLOGY | | | | + +---------+ + + documented in this encounter Visit Diagnoses Not on filedocumented in this encounter
--- OUTSIDE RECORDS SUMMARY | ~2020-02-27 | XMS | Encounter Summary ---
Demographics + + + | Address | [address] | | | [place] [address] | + + + | Home Phone [...] [place], [place] | | | | | [address] | | + + + + + | Ellie Vang | ECON | Unknown | | + + + + + Care Team Providers + +------+ + | Care Boot Lace Cutter Machine Name | Role | Phone | + +------+ + | Fadi Goodrich DO | PCP | | + +------+ + Encounter Details +--------+ + + + + | Date | Type | Department | Care Team | Description | +--------+ + + + + | 06/09/ | Abstract | Digestive Health | Kathy Feldman, | | | 2012 | | [place] [address] [address] | BRIDAL CONSULTANT [address] | | | | | [address] [facility] | [facility] 350 | | | | | for Health and | [place], [place] | | | | | [facility] 2 | [address] | | | | | [place], [place] | [phone] | | | | | [address] | | | | | | [phone] | | | +--------+ + + + [...] Ave | | | | | | [place], [place] | | | | | | [address] | | | | | | [phone] | | | | | | | | +--------+ + + + + | 04/04/ | Telephone-S | Surgery | Orquidea Cristobal, | | | 2019 | sherrill | | SINGLE WIRE SAW OPERATOR [address] | | | | | | [facility] [place] | | | | | | [address] | | | | | | [phone] | | | | | | | | +--------+ + + + + documented as of this encounter Visit Diagnoses Not on filedocumented in this encounter"
--- OUTSIDE RECORDS SUMMARY | ~2020-02-27 | XMS | Encounter Summary ---
Demographics + + + | Address | [address] | | | [place] [address] | [...] | Organization | [facility] [...] Providers + +------+ + | Care Head Sampler Name | Role | Phone | [...] | Services | Disease | Chronic | Sulema Pope, [facility] | | | Required | | diastolic | TRAVELING ACCOUNTANT [address] | SLEEP | | | | | heart | [address] | DISORDERS LAB | | | | | failure | DM[address]RI F | [address] | | | | | (HCC) | BRENDA, MD | [address] | | | | | History of | [address] | [place], [place] | | | | | sinus | Phone: | [address] | | | | | tachycardia | [phone] | Phone: | | | | | History of | Fax: | [phone] | | | | | bariatric | [phone] | Fax: | | | | | surgery | | [phone] | | | | | Sleep apnea [...] | | | [address] | [place] [address] | History of sinus | | | | [place], [place] | [phone] | tachycardia; History | | | | [address] | | of stroke; HTN, | | | | [phone] | | goal below 130/80; | | [...] have referred you to Dr. Rascon at [facility] , call [phone] for an appointment next week I made [...] with previous dysfunctional RV treated at [facility] with diuresis and hospitalization for one month., sleep apnea treated with BiPAP, t ype II diabetes, hypothyroidism, morbid obesity with alveolar hypoventilation, Frandy-en-Y ga stric bypass surgery 02/2018, osteoarthritis,DVT and PE 2016, hypokalemia and hyperuricemia which is being followed by rn ed Dr. Fu, and SELINA Escobar. Her current [...] and will be seeing a surgeon a t [facility] on May 05. In the meantime [...] today that she never heard from the [place] [facility] providers to her sup posed [...] surgery, and weight down 123 pounds since [facility] 2017 when weighed 394 lbs. She [...] by Dr. Franks, endocrin ologist at [facility]) . Denies excessive thirst or hunger. [...] knee pain and hernia pain Lives in [facility] her mother who smokes. . Sister is patient care provider. Grandchildren ages 4 and 7 live with he r daughter and son-in-law. Disabled , on disability .01/24/2019: working with [employer] to get her own place. Outpatient Medications [...] film Suboxone 2 mg-0.5 mg sublingual film Qdmddwu-Gbwrutalw-Rzbbjpf D (CITRACAL CALCIUM+D PO) Take 2 tablets [...] Pen Needle (NOVOFINE) 32G X 6 MM [facility] Novofine 32 32 gauge x 1/4" needle [...] monohydrate/macrocrystals 100 m g capsule nystatin (NYSTATIN) 505164 UNIT/GM powder Nyamyc 100,000 unit/gram topical powder [...] Take 30 mg by mouth Daily. thyroid (HSE SPECIALIST THYROID) 30 mg tablet HSE SPECIALIST Thyroid 30 mg tablet TAKE ONE [...] of DVT. EKG EKG 10/27: ([facility]) Normal sinus rhythm. Normal EKG. Rate 93 bpm, KS 172 ms, QRS 90 ms, QTC 465 ms personally reviewed by me in the office today) EK02/05: Sinus tachycardia, otherwise normal. Rate 160 bpm, KS 174 ms, QRS 74 ms, QTC 451 ms (personally reviewed by me in the office today and no significant change seen fro m EKG done in October 2016 except for faster heart rate) EK04/26/2018: Normal sinus rhythm, rate 74 bpm, KS 182 ms, QRS 96 ms, QTC 472 ms, tracin g personally reviewed by me, and compared to previous EKG, heart rate is now better controll ed, otherwise similar morphology EK04/28/2019: Normal sinus rhythm, right axis. Rate 74 bpm, KS 170 ms, QRS 88 ms, QTC 45 [...] heard from the sleep providers at the [place] [facility] in [place], so I have referred her again to Dr. Rascon at the [facility], and she ne eds [...] Placed This Encounter Procedures Ambulatory Referral to [facility] Pulmonology- Sleep study as well ECG 12 [...] past surgical history. Problem list. [facility] Nicole soler in this encounter [...] D | | | | | | [place] [address] | | | | | | [phone] | | | | | | | | +--------+ + + + + | 03/29/ | Office | Cardiology | Sulema Altamirano | | 2019 | Visit | | [address]IL[address] | | | | | | [address] | | | | | | [place] [address] | | | | | | [phone] | | | | | | | | +--------+ + + + + + + +--------+ + + | Name | Type | Priori | Associated Diagnoses | Order Schedule | | | | ty | | | + + +--------+ + + | Ambulatory Referral | Outpatient | Routin | Chronic diastolic | Ordered: 04/28/2019 | | to [facility] | Referral | e | heart failure [...] | | | | | by [employer] Read Only, | | | | | | [employer] ([id number]), | | | | | | school [...]
--- OUTSIDE RECORDS SUMMARY | ~2020-02-27 | XMS | Encounter Summary ---
Demographics + + + | Address | [address] | | | [place] [address] | + + + | Home Phone [...] [place], [place] | | | | | [address] | | + + + + + [...] | | | [address] | [place], [place] | | | | | [address] | [address] | | | | | [address], | [phone] | | | | | [address] [facility], | | | | | | [place] [address] | | | | | | [phone] | | | +--------+ + + + [...] [address] | | | | | | [place], [place] | | | | | | [address] | | | | | | [phone] | | | | | | | | +--------+ + + + + | 04/04/ | Telephone-S | Surgery | Orquidea Cristobal, | | | 2019 | cheduled | | BOOM MASTER [address] | | | | | | [place], [place] | | | | | | [address] | | | | | | [phone] | | | | | | | | +--------+ + + + + documented as of this encounter Visit Diagnoses Not on filedocumented in this encounter"
--- OUTSIDE RECORDS SUMMARY | ~2020-02-27 | XMS | Encounter Summary ---
Demographics + + + | Address | [address] | | | [place] [address] | [...] [place], [place] | | | | | [address] | | + + + + + | Ellie Vang | ECON | Unknown | | + + + + + Care Team Providers + +------+ + | Care Manager Corporate Name | Role | Phone | + [...] | | | | | | [address] [place], [place] | | | | | | [address] | | | | | | [phone] | | | +--------+ + + + [...] Ave | | | | | | [place], [place] | | | | | | [address] | | | | | | [phone] | | | | | | | | +--------+ + + + + | 04/04/ | Telephone-S | Surgery | Orquidea Cristobal, | | | 2019 | sherrill | | SUPERVISOR SHIPPING ROOM [address] | | | | | | [place], [place] | | | | | | [address] | | | | | | [phone] | | | | | | | | +--------+ + + + + documented as of this encounter Visit Diagnoses Not on filedocumented in this encounter"
--- OUTSIDE RECORDS SUMMARY | ~2020-02-27 | XMS | Encounter Summary ---
Demographics + + + | Address | [address] | | | [place] [address] | + + + | Home Phone [...] [place], [place] | | | | | [address] | | + + + + + | Ellie Vang | ECON | Unknown | | + + + + + Care Team Providers + +------+ + | Care Armature Coil Winder Name | Role | Phone [...] 2014 | | Center at [facility] [address] | [facility] [address] | Review (Pre-surgery | | | | [address] [facility] | Ave [place], [place] | meal plan. To be | | | | for Health and | [address] | provided to home | | | | [facility] | [phone] | health nurse. ) | | | | [place], [place] | | | | | | [address] | | | | | | [phone] | | | +--------+ + + + [...] Ave | | | | | | [place], [place] | | | | | | [address] | | | | | | [phone] | | | | | | | | +--------+ + + + + | 04/04/ | Telephone-S | Surgery | Orquidea Cristobal, | | | 2019 | cheduled | | DRY CLEANER HAND [address] | | | | | | [place], [place] | | | | | | [address] | | | | | | [phone] | | | | | | | | +--------+ + + + + documented as of this encounter Visit Diagnoses Not on filedocumented in this encounter"
--- OUTSIDE RECORDS SUMMARY | ~2020-02-27 | XMS | Encounter Summary ---
Demographics + + + | Address | [address] | | | [place] [address] | + + + | Home Phone [...] [place], [place] | | | | | [address] | | + + + + + | Ellie Vang | ECON | Unknown | | + + + + + Care Team Providers + +------+ + | Care Office Technology Instructor Name | Role | [...] | | 2014 | | Preventive at [facility] | MD [address] | | | | | [address] | [place], [place] | | | | | [facility] | [address] | | | | | and [place], | [phone] | | | | | [address] | | | | | | [place], [place] | | | | | | [address] | | | | | | [phone] | | | +--------+--------+ + + + [...] [place] | | | | | | [address] | | | | | | [phone] | | | | | | | | +--------+ + + + + | 04/04/ | Telephone-S | Surgery | Orquidea Cristobal, | | | 2020 | cheduled | | RAILROAD BAGGAGE PORTER [address] | | | | | | [place] | | | | | | [address] | | | | | | [phone] | | | | | | | | +--------+ + + + + documented as of this encounter Visit Diagnoses Not on filedocumented in this encounter"
--- OUTSIDE RECORDS SUMMARY | ~2020-02-27 | XMS | Encounter Summary ---
Demographics + + + | Address | [address] | | | [place] [address] | [...] Team Providers + +------+ + | Care Councilperson Name | Role | Phone | + +------+ + | Jorje Hill | PCP | | + +------+ + Encounter Details +--------+ + + + + | Date | Type | Department | Care Team | Description | +--------+ + + + + | 01/01/ | Orders Only | [facility] | Augustine Fu MD | Hyperparathyroidism | | 2020 | | NEPHROLOGY [place] | [address] | (HCC) (Primary Dx); | | | | [address] | [address] [place], [place] | CKD (chronic kidney | | | | [address] [place], [place] | [address] | disease) stage 2, | | | | [address] | | GFR 60-89 ml/min; | | | | [phone] | | HTN, goal below | | [...] D | | | | | | [place] [address] | | | | | | [phone] | | | | | | | | +--------+ + + + + | 03/29/ | Office | Cardiology | AdarshSulema | | | 2019 | Visit | | [address] | | | | | | [address] | | | | | | [place] [address] | | | | | | [phone] | | | | | | | [...]
--- OUTSIDE RECORDS SUMMARY | ~2020-02-27 | XMS | Encounter Summary ---
Demographics + + + | Address | [address] | | | [place] [address] | + + + | Home Phone [...] [place], [place] | | | | | [address] | | + + + + + | Ellie Vang | ECON | Unknown | | + + + + + Care Team Providers + +------+ + | Care Fiber Technologist Name | Role | Phone | [...] Pre-operative | | 2019 | cheduled | [facility] at | | evaluation | | | | [facility] | | | | | | [address] | | | | | | [facility] | | | | | | and Healing, | | | | | | [address] | | | | | | [place], [place] | | | | | | [address] | | | | | | [phone] | | | +--------+ + + + [...] MG TABLET ATENOLOL 50 MG TABLET CALCIUM CRB&OEA-O5-LNY14-GENIS ORAL CYANOCOBALAMIN (VIT B-12) 1,000 MCG TABLET [...] ch as Uber/Lyft), or public transportation. An Uber/Lyft/trash truck driver does not count as the [...] it is after office hours, call the [facility] high speed operator at [phone] and ask them to page him or [...] [place] | | | | | | [address] | | | | | | [phone] | | | | | | | | +--------+ + + + + | 04/04/ | Telephone-S | Surgery | Orquidea Cristobal, | | | 2019 | chesteve | | COMMUNITY WORKER [address] | | | | | | [place], [place] | | | | | | [address] | | | | | | [phone] | | | | | | | | +--------+ + + + + documented as of this encounter Visit Diagnoses Not on filedocumented in this encounter
--- OUTSIDE RECORDS SUMMARY | ~2020-02-27 | XMS | Encounter Summary ---
Demographics + + + | Address | [address] | | | [place] [address] | + + + | Home Phone [...] [place], [place] | | | | | [address] | | + + + + + | Ellie Vang | ECON | Unknown | | + + + + + Care Team Providers + +------+ + | Care Central Supply Technician Name | Role | Phone | + +------+ + | Fadi Goodrich DO | PCP | | + +------+ + Encounter Details +--------+ + + + + | Date | Type | Department | Care Team | Description | +--------+ + + + + | 02/13/ | Abstract | Cardiology | Randell Franks, | | | 2015 | | Preventive at [facility] | MD [address] | | | | | [address] | [place], [place] | | | | | [facility] | [address] | | | | | and [place], | [phone] | | | | | [address] | | | | | | [facility] [place] | | | | | | [address] | | | | | | [phone] | | | +--------+ + + + [...] Ave | | | | | | [place], [place] | | | | | | [address] | | | | | | [phone] | | | | | | | | +--------+ + + + + | 04/04/ | Telephone-S | Surgery | Orquidea Cristobal, | | | 2019 | cheduled | | COLOR DRUM WORKER [address] | | | | | | [place], [place] | | | | | | [address] | | | | | | [phone] | | | | | | | | +--------+ + + + + documented as of this encounter Visit Diagnoses Not on filedocumented in this encounter"
--- OUTSIDE RECORDS SUMMARY | ~2020-02-27 | XMS | Encounter Summary ---
Demographics + + + | Address | [address] | | | [place] [address] | + + + | Home Phone [...] [place], [place] | | | | | [address] | | + + + + + | Ellie Vang | ECON | Unknown | | + + + + + Care Team Providers + +------+ + | Care Rn Charge Name | Role | Phone | + +------+ + | Fadi Goodrich DO | PCP | | + +------+ + Encounter Details +--------+ + + + + | Date | Type | Department | Care Team | Description | +--------+ + + + + | 10/12/ | Telephone | Digestive Health | Hernandez Brian, | | | 2012 | | [place] [address] [address] | MD [address] [facility] | | | | | S [facility] | [facility] | | | | | for Health and | [place], [place] | | | | | [facility] 2 | [address] | | | | | [place], [place] | [phone] | | | | | [address] | | | | | | [phone] | | | +--------+ + + + [...] Ave | | | | | | [place], [place] | | | | | | [address] | | | | | | [phone] | | | | | | | | +--------+ + + + + | 04/04/ | Telephone-S | Surgery | Orquidea Cristobal, | | | 2019 | sherrill | | DATA BASE DESIGN ANALYST [address] | | | | | | [place], [place] | | | | | | [address] | | | | | | [phone] | | | | | | | | +--------+ + + + + documented as of this encounter Visit Diagnoses Not on filedocumented in this encounter"
--- OUTSIDE RECORDS SUMMARY | ~2020-02-27 | XMS | Encounter Summary ---
Demographics + + + | Address | [address] | | | [place] [address] | + + + | Home Phone [...] [place], [place] | | | | | [address] | | + + + + + | Ellie Vang | ECON | Unknown | | + + + + + Care Team Providers + +------+ + | Care Infant And Toddler Teacher Name | Role | Phone | [...] from Patient; | | 2017 | | [place] [address] | MD [address] | Postoperative | | | | Ave Mailcode: CH4S | [place], [place] | infection | | | | [facility] | [address] | | | | | and Healing, | [phone] | | | | | [place] [address] [facility] | | | | | | [place], [place] | | | | | | [address] | | | | | | [phone] | | | +--------+ + + + [...] [address] | | | | | | [place], [place] | | | | | | [address] | | | | | | [phone] | | | | | | | | +--------+ + + + + | 04/04/ | Telephone-S | Surgery | Orquidea Cristobal, | | | 2019 | cheduled | | LOAN DOCUMENTS CLOSER [address] | | | | | | [facility] [place] [place] | | | | | | [address] | | | | | | [phone] | | | | | | | | +--------+ + + + + documented as of this encounter Visit Diagnoses Not on filedocumented in this encounter"
--- OUTSIDE RECORDS SUMMARY | ~2020-02-27 | XMS | Encounter Summary ---
Demographics + + + | Address | [address] | | | [place] [address] | + + + | Home Phone [...] [place], [place] | | | | | [address] | | + + + + + | Ellie Vang | ECON | Unknown | | + + + + + Care Team Providers + +------+ + | Care Site Auditor Name | Role | Phone | [...] | [address] | Ave [facility] [place] | | | | | [address] | [address] | | | | | [address] [place], | [phone] | | | | | 4th floor [place], | | | | | | [place] [address] | | | | | | [phone] | | | +--------+ + + + [...] [place] | | | | | | [address] | | | | | | [phone] | | | | | | | | +--------+ + + + + | 04/04/ | Telephone-S | Surgery | Orquidea Cristobal, | | | 2019 | sherrill | | MEDICARE CONTACT SPECIALIST [address] | | | | | | [place], [place] | | | | | | [address] | | | | | | [phone] | | | | | | | | +--------+ + + + + documented as of this encounter Results EGD (06/23/2018 3:58 PM PST) + + | Specimen | + + | | + + + +--------- -----+ | Narrative | Zuleimae d At | + +--------- -----+ | MRN: | NKECHI | | [id number] Date: 06/23/2018Patient Name: Elzbieta Curtis #: | ENDOSCOP Y | | [id number] of : 1975CSN: [id number] Type: | | | AmbulatoryRoom: SORProcedure: Upper GI | | | endoscopyIndications: Nausea with vomiting, Status post | | | Vwpa-he-LBqrfykdgt: KALEB MILES MD (Doctor), JOSE | | | [place], Social Services | | | (Social Services)Referring MD: DANIELLE GARCÍAPRequestdonya | | | Provider: [...] | | | The Olympus GIF-HQ190 Gastroscope #[id number] was | | | introduced through the [...] endoscope without resistance. The | | | mdbwv-yu-nnbkpat limb was characterized by healthy appearing | [...] 06/23/2018 3:58 [facility] Letter to: RADHA MICHAEL DO | | [...]
--- OUTSIDE RECORDS SUMMARY | ~2020-02-27 | XMS | Encounter Summary ---
Demographics + + + | Address | [address] | | | [place] [address] | + + + | Home Phone [...] [place], [place] | | | | | [address] | | + + + + + | Ellie Vang | ECON | Unknown | | + + + + + Care Team Providers + +------+ + | Care Carbon Paper Interleafer Name | Role | Phone | + [...] visit | | 2020 | | Center [place] [address] | | | | | | [facility] | | | | | | for Health and | | | | | | [facility] 2 | | | | | | [place], [place] | | | | | | [address] | | | | | | [phone] | | | +--------+ + + + [...] Ave | | | | | | [place], [place] | | | | | | [address] | | | | | | [phone] | | | | | | | | +--------+ + + + + | 04/04/ | Telephone-S | Surgery | Orquidea Cristobal, | | | 2019 | cheduled | | GAS ADJUSTER [address] | | | | | | [place], [place] | | | | | | [address] | | | | | | [phone] | | | | | | | | +--------+ + + + + documented as of this encounter Visit Diagnoses Not on filedocumented in this encounter"
--- OUTSIDE RECORDS SUMMARY | ~2020-02-27 | XMS | Encounter Summary ---
Demographics + + + | Address | [address] | | | [place] [address] | + + + | Home Phone [...] [place], [place] | | | | | [address] | | + + + + + | Ellie Vang | ECON | Unknown | | + + + + + Care Team Providers + +------+ + | Care Endocrinology Physician Name | Role | Phone | [...] | | | | | [facility] | | | | | | [place], [place] | | | | | | [address] | | | | | | [phone] | | | +--------+ + + + [...] [address] | | | | | | [place], [place] | | | | | | [address] | | | | | | [phone] | | | | | | | | +--------+ + + + + | 04/04/ | Telephone-S | Surgery | Orquidea Cristobal, | | | 2019 | sherrill | | MERCHANDISER SEASONAL [address] | | | | | | [place], [place] | | | | | | [address] | | | | | | [phone] | | | | | | | [...] | | | | | | | [place], [place] | | | | | | [address] | | | | | | DrRenee | | | | | | Nilda Velazquez | | | | | | | | | | | | Dr. Trell Collazo | | | | | | | | | | | | Dr. Aime rBanch | | | | | | Rex [...] | | | | artery. A 5.5 Nepali | | | | | | Ozzy [...]
--- OUTSIDE RECORDS SUMMARY | ~2020-02-27 | XMS | Encounter Summary ---
Demographics + + + | Address | [address] | | | [place] [address] | + + + | Home Phone [...] [place], [place] | | | | | [address] | | + + + + + | Ellie Vang | ECON | Unknown | | + + + + + Care Team Providers + +------+ + | Care Honey Grader And Blender Name | Role | Phone | [...] | | | for Health and | [address] | | | | | Healing, [facility] 2 | [phone] | | | | | [place], [place] | | | | | | [address] | | | | | | [phone] | | | +--------+ + + + [...] Ave | | | | | | [place], [place] | | | | | | [address] | | | | | | [phone] | | | | | | | | +--------+ + + + + | 04/04/ | Telephone-S | Surgery | Orquidea Cristobal, | | | 2019 | cheduled | | DAY TREATMENT CLINICIAN/ART THERAPIST [address] | | | | | | [place], [place] | | | | | | [address] | | | | | | [phone] | | | | | | | | +--------+ + + + + documented as of this encounter Visit Diagnoses Not on filedocumented in this encounter"
--- OUTSIDE RECORDS SUMMARY | ~2020-02-27 | XMS | Encounter Summary ---
Demographics + + + | Address | [address] | | | [place] [address] | + + + | Home Phone [...] [place], [place] | | | | | [address] | | + + + + + | Ellie Vang | ECON | Unknown | | + + + + + Care Team Providers + +------+ + | Care Environmental Scientists Name | Role | Phone | + [...] ENDOSCOPY | | 2017 | | [facility] | [address] | | | | | [address] [facility] | [place], [place] | | | | | Hospital Admitting | [address] | | | | | Desk Located on the | [phone] | | | | | 9th floor | | | | | | [place], [place] | | | | | | [address] | | | +--------+---------+ + + + [...] the endoscopy department toll free ext. [phone] or After business hours or on weekends and holiday [facility] toll free [phone] ext. [phone] and have the GI doctor concrete pavement installer paged. The provider who performed your procedure [...] | | 0 | | | | CRB&OQX-M1-LSB46-GEN | mouth two times | | | [...] 2:35 PM PST PRE PROCEDURE NOTE: MR# [id number] Subjective: Elzbieta Cristina is a 43 y.o. [...] [address] | | | | | | [place], [place] | | | | | | [address] | | | | | | [phone] | | | | | | | | +--------+ + + + + | 04/04/ | Telephone-S | Surgery | Orquidea Cristobal, | | | 2019 | cheduled | | FOUNDRY WORKER GENERAL [address] | | | | | | [place], [place] | | | | | | [address] | | | | | | [phone] | | | | | | | [...] -----+ | MRN: | [facility] | | [id number] Date: 06/23/2018Patient Name: Elzbieta Curtis #: | ENDOSCOP Y | | [id number] of : 1975CSN: [id number] Type: | | | AmbulatoryRoom: SORProcedure: Upper GI | | | endoscopyIndications: Nausea with vomiting, Status post | | | Oqlo-lu-PIbxppsqgz: KALEB WILCOX MD (Doctor), JOSE | | | NASIM[place], Worm Farm Laborer | | | (Worm Farm Laborer)Referring MD: DANIELLE GARCÍAPRequestdonya | | | Provider: [...] | | | The Olympus GIF-HQ190 Gastroscope #[id number] was | | | introduced through the [...] endoscope without resistance. The | | | sfboz-fo-rnxnyzr limb was characterized by healthy appearing | [...] Initiated On: | | | 06/23/2018 3:58 [facility] Letter to: FADI MICHAEL DO | [...] + | NKECHI AMES | [address] | [place], [place] | | | JUSTINE DAWN OF [facility] | [address] | [address] | | | TESTS | | | [...] Thu06/23/18 at | | | 1324, Until Jasmyne [...] 1532, | | | Until [facility] 06/24/18 at 0027, | | | hypopnea | | + +---+ | | | + +---+ | ondansetron (ZOFRAN) injection | | | 4 mg 4 mg, intravenous, | | | POSTPROCEDURE PRN, 1 dose, | | | Starting [facility] 06/23/18 at 1532, | | | Until [facility] 06/24/18 at 0027, | | | nausea/vomiting [...] | | | PRN, 1 dose, Starting [facility] | | | | | | [...]
--- OUTSIDE RECORDS SUMMARY | ~2020-02-27 | XMS | Encounter Summary ---
Demographics + + + | Address | [address] | | | [place] [address] | + + + | Home Phone [...] [place], [place] | | | | | [address] | | + + + + + | Ellie Vang | ECON | Unknown | | + + + + + Care Team Providers + +------+ + | Care Lawnmower Repair Mechanic Name | Role | Phone | [...] [id number] | | | | | | [facility] | | | | | | [place], [place] | | | | | | [address] | | | | | | [phone] | | | +--------+ + + + [...] Ave | | | | | | [place], [place] | | | | | | [address] | | | | | | [phone] | | | | | | | | +--------+ + + + + | 04/04/ | Telephone-S | Surgery | Orquidea Cristobal, | | | 2019 | cheduled | | LINING CUTTER [address] | | | | | | [facility] [place], [place] | | | | | | [address] | | | | | | [phone] | | | | | | | | +--------+ + + + + documented as of this encounter Visit Diagnoses Not on filedocumented in this encounter"
--- OUTSIDE RECORDS SUMMARY | ~2020-02-27 | XMS | Encounter Summary ---
Demographics + + + | Address | [address] | | | [place] [address] | + + + | Home Phone [...] [place], [place] | | | | | [address] | | + + + + + | Ellie Vang | ECON | Unknown | | + + + + + Care Team Providers + +------+ + | Care Senior Security Engineer Name | Role | Phone [...] | [address] | Lesly Gutiérrez De[place], | | | | | Mailcode: CH6A | [place] [address] | | | | | [place], [place] | | | | | | [address] | | | | | | [phone] | | | +--------+ + + + [...] | | | | | | [place], [place] | | | | | | [address] | | | | | | [phone] | | | | | | | | +--------+ + + + + | 04/04/ | Telephone-S | Surgery | Orquidea rCistobal, | | | 2019 | cheduled | | TEACHING PASTOR [address] | | | | | | [place], [place] | | | | | | [address] | | | | | | [phone] | | | | | | | | +--------+ + + + + documented as of this encounter Visit Diagnoses Not on filedocumented in this encounter"
--- OUTSIDE RECORDS SUMMARY | ~2020-02-27 | XMS | Encounter Summary ---
Demographics + + + | Address | [address] | | | [place] [address] | + + + | Home Phone [...] [place], [place] | | | | | [address] | | + + + + + | Ellie Vang | ECON | Unknown | | + + + + + Care Team Providers + +------+ + | Care Mental Hygiene Consultant Name | Role | Phone | [...] | | 2018 | | Center at [facility] [address] | ACNP [address] | | | | | [address] [place] | e [place], [place] | | | | | for Health and | [address] | | | | | [facility], [facility] 2 | [phone] | | | | | [place], [place] | | | | | | [address] | | | | | | [phone] | | | +--------+ + + + [...] Ave | | | | | | [place], [place] | | | | | | [address] | | | | | | [phone] | | | | | | | | +--------+ + + + + | 04/04/ | Telephone-S | Surgery | Orquidea Cristobal, | | | 2019 | cheduled | | STOCKING INSPECTOR [address] | | | | | | [place], [place] | | | | | | [address] | | | | | | [phone] | | | | | | | | +--------+ + + + + documented as of this encounter Visit Diagnoses Not on filedocumented in this encounter"
--- OUTSIDE RECORDS SUMMARY | ~2020-02-27 | XMS | Encounter Summary ---
[...] Providers + +------+ + | Care Pattern Layout Worker Name | Role | Phone [...] | | [facility] | Ave [place], [place] | | | | | Health and Healing, | [address] | | | | | [place] [address] | [phone] | | | | | Floor [place], [place] | | | | | | [address] | | | | | | [phone] | | | +--------+ + + + [...] | | 0 | | | | CRB&FJN-X0-ZJN14-GEN | mouth two times | | | [...] Ave | | | | | | [place], [place] | | | | | | [address] | | | | | | [phone] | | | | | | | | +--------+ + + + + | 04/04/ | Telephone-S | Surgery | Orquidea Cristobal, | | | 2019 | chesteve | | MEDICAL RECORD TRANSCRIBER [address] | | | | | | [place], [place] | | | | | | [address] | | | | | | [phone] | | | | | | | [...]
--- OUTSIDE RECORDS SUMMARY | ~2020-02-27 | XMS | Encounter Summary ---
Demographics + + + | Address | [address] | | | [place] [address] | + + + | Home Phone [...] [place], [place] | | | | | [address] | | + + + + + [...] Brian, | | | 2012 | | [place] [address] 3485 | MD [address] [facility] | | | | | S [facility] | [facility] | | | | | for Health and | [place], [place] | | | | | [facility] 2 | [address] | | | | | [place], [place] | [phone] | | | | | [address] | | | | | | [phone] | | | +--------+ + + + [...] Ave | | | | | | [place], [place] | | | | | | [address] | | | | | | [phone] | | | | | | | | +--------+ + + + + | 04/04/ | Telephone-S | Surgery | Orquidea Cristobal, | | | 2019 | sherrill | | TRAFFIC SERGEANT [address] | | | | | | [place], [place] | | | | | | [address] | | | | | | [phone] | | | | | | | | +--------+ + + + + documented as of this encounter Visit Diagnoses Not on filedocumented in this encounter"
--- OUTSIDE RECORDS SUMMARY | ~2020-02-27 | XMS | Encounter Summary ---
Demographics + + + | Address | [address] | | | [place] [address] | + + + | Home Phone [...] [place], [place] | | | | | [address] | | + + + + + | Ellie Vang | ECON | Unknown | | + + + + + Care Team Providers + +------+ + | Care Meat Apprentice Name | Role | Phone | + +------+ + | Fadi Goodrich DO | PCP | | + +------+ + Encounter Details +--------+------+ + + + | Date | Type | Department | Care Team | Description | +--------+------+ + + + | 10/12/ | Lab | Laboratory at [facility] | | | | 2019 | | [address] | | | | | | [place] [facility] | | | | | | and Healing, | | | | | | Building [address] | | | | | | [place], [place] | | | | | | [address] | | | | | | [phone] | | | +--------+------+ + + + [...] [place] | | | | | | [address] | | | | | | [phone] | | | | | | | | +--------+ + + + + | 04/04/ | Telephone-S | Surgery | Orquidea Cristobal, | | | 2019 | sherrill | | TANK OFFICER [address] | | | | | | [place], [place] | | | | | | [address] | | | | | | [phone] | | | | | | | [...] [facility] | [address] | [place] [address] | | | LYDIA RANGEL | CLARENCE [...] INTFC | | | | determined by [email or web address] | | | | | | Laboratories. See | | | | | | Compliance Statement B: | | | | | | [employer]/CSPerformed | | | | | | by [employer],[address] | | | | | | Liliana Martinez, [facility] | | | | | | [address] | | | | | | [phone].[employer] Group. | | | | | | [...] [facility] | [address] | [place], [place] | | | UNIV PTH - INTFC | | [address] | | + + + + + [...] B: | | | | | | [employer]/CSPerformed | | | | | | by [employer],500 | | | | | | [facility] | | | | | | [address] | | | | | | [phone].BitLeaplab. | | | | | | com, [...] + + | [facility] | [address] [facility] | [place], [place] | | | UNIV PTH - INTFC | | [address] | | + + + + + [...] [facility] | | | (YEN NOAH) | [employer] [facility],500 | | REG UNIV | | | SERUM | [place], [place] | | PTH - INTFC | | | | [address] | | | | | | [phone].[employer] Group. | | | | | | com, [...] B: | | | | | | [employer]/CS | | | | + + + + + + + + | Specimen | + + | Blood - Blood | | (substance) | + + + + + + + | Performing | Address | City/State/Zipcode | Phone Number | | Organization | | | | + + + + + | [facility] | [address] | [place], [place] | | | UNIV PTH - INTFC | | [address] | | + + + + + [...] [facility] | [address] | [place] [address] | | | SERVICES, CORE | PARK [...] [facility] | [address] | [place] [address] | | | SERVICES, LYDIA | CLARENCE [...] INTERPRETIVE | 70 - 180 nmol/L | [facility] | | | WHOLE | [...] | | | | | determined by [facility] | | | | | | Laboratories. See | | | | | | Compliance Statement B: | | | | | | [employer]/CSPerformed | | | | | | by [employer],500 | | | | | | Liliana Martinez [facility] | | | | | | [address] | | | | | | [phone].[employer]. | | | | | | com, [...] [facility] | [address] | [place], [place] | | | UNIV PTH - INTFC | | [address] | | + + + + + [...] [facility] | [address] | [place] [address] | | | SERVICES, CORE | CLARENCE [...] | | | | | determined by [employer] | | | | | | Laboratories. See | | | | | | Compliance Statement B: | | | | | | [employer]/CSPerformed | | | | | | by [employer],[address] | | | | | | [facility] | | | | | | [address] | | | | | | [phone].[employer] Group. | | | | | | [...] [facility] | [address] | [place], [place] | | | UNIV PTH - INTFC | | [address] | | + + + + + [...] [facility] | [address] | [place] [address] | | | SERVICES, CORE | PARK [...] [facility] | [address] | [place] [address] | | | SERVICES, SPECIAL | PARK [...] | + + + + + | Clutter | [address] | [place] [address] | | | SERVICES, CORE | CLARENCE [...] at | | | | | | [email or web address] | | | | | | med by [facility] | | | | | | Laboratories,[address] [place] [address] | | | | | | [place] [address] | | | | | | [phone].[employer] Group. | | | | | | [facility] hospital[facility]el MD, | | | | | [...] [facility] | [address] | [place], [place] | | | UNIV PTH - INTFC | | [address] | | + + + + + [...] + + + | [facility] | [address] | [place] [address] | | | SERVICES, CORE | [address] | | | + + + + + documented in this encounter Visit Diagnoses Not on filedocumented in this encounter"
--- OUTSIDE RECORDS SUMMARY | ~2020-02-27 | XMS | Encounter Summary ---
Demographics + + + | Address | [address] | | | [place] [address] | + + + | Home Phone [...] Providers + +------+ + | Care Torch Burner Name | Role | Phone | [...] | | | | | Procedures | [place], [place] | [place], [place] | | | | | [place] | [address] | [address] | | | | | CAR | Phone: | Phone: | | | | | PREVENTATIVE | [phone] | [phone] | | | | | [facility] - | Fax: | Fax: | | | | | LIPIDS | [phone] | [phone] | +--------+--------+ + + + + Encounter Details +--------+---------+ + + + | Date | Type | Department | Care Team | Description | +--------+---------+ + + + | 09/11/ | Office | Cardiology | LissethOlga Lidia, | Morbid obesity with | | 2017 | Visit | Preventive at [facility] | [address] | BMI of 70 and over, | | | | [address] | [address] | adult (HCC) (Primary | | | | Center for [facility] | [place], [place] | Dx) | | | | and Healing, | [address] | | | | | Building [address] | | | | | | [place], [place] | | | | | | [address] | | | | | | [phone] | | | +--------+---------+ + + + [...] Dietitian: Olga Lidia Montanez RD, LD [facility] Bariatric department (to reschedule classes): [phone] Goals: 1. Try to stop buying Pop-Tarts 2. Replace afternoon snack (think of this as lunch) with vegetables or fruit -cucumbers, carrots, broccoli, cauliflower, etc. -try making ranch dip w/ nonfat plain yogurt (regular or [place]) (or mix yogurt w/ salsa; o r chipotle hot sauce & chemehuevi juice) 3. Snack ideas: -fruit -vegetables (with hummus or yogurt dip) -[place] yogurt - light (have w/ fruit if you're still hungry) -applesauce - unsweetened, w/ lowfat string cheese -1/4 cup nuts -lowfat string cheese -low-fat or non-fat cottage cheese w/ tomatoes 4. Aim for 60-80 grams of protein a day (see list) 5. Add [place] yogurt to breakfast Heart Protection Kitchen from [facility] Healthy eating made simple. What: FREE heart-healthy cooking demonstrations led by guest solid waste disposal manager and nutrition experts. Samples are provided! Where: [facility] ([facility]), September, 2nd floor teaching kitchen When: All classes from 11:00am-12:00pm ? October 12 (led by Dr. Paulino Carreno MD) Please contact Keerthi Boyer at [phone] or email at [email or web address] for information on upcoming classes and to register. Space is limited - reserve your seat today! Want more info on what to eat? Watch the Jibo video, "Healthy Eating 101," at [email or web address] documented in this encounter Progress Notes Olga Lidia Montanez RD - 09/11/2017 2:30 PM PSTFormatting of this note might be different fro m the original. [facility] Center of Preventive Cardiology, Nutrition Consultation Referring provider: Dr. Randell Franks MD Referring diagnosis: obesity, HF, DM2 Visit type: Initial; vcer-xx-uhvb visit with patient Questions/Information desired today: Hoping [...] restarting the bariatric program; getting PT in [place] & has nutrition classes scheduled. Still has bariatric notebooks at home. Per Fivejack message from Dr. Pandey 09/10/17: "Just tell [...] & 1% milk; occ w/ applesauce or [place] yogurt No L S (3pm): pop-tart or [...] fruit bowls from [facility]. Vegetables: every day w/ dinner - usually [...] from 495 lbs to 383 lbs in 5619-4070 on Atkins diet ANTHROPOMETRICS: Height: Ht Readings from Last 1 Encounters: 09/11/17 1.549 m (5' 1") Weight: Wt Readings from Last 1 Encounters: 09/11/17 176.5 kg (389 lb 3.2 oz) 11/28/16 179.443 kg (395 lb 10 oz) Body mass index is 73.54 kg/m. Weight exchange underwriting consultant the past year: 6 lb wt [...] weight loss; anticipate excellent compliance in the [facility] surgery program. Currently eating energy-dense/nurient-poor [...] of protein a day - add light [place] yogurt to breakfast; include lean protein with PM snack/lunch 3. D/c carbonated beverages (e.g., diet soda); replace with water, Crystal Light, diet deca f tea, or other calorie-free still beverage Contact information was provided; call or send Fivejack message to dietitian with any questi ons. [...] [address] | | | | | | [place], [place] | | | | | | [address] | | | | | | [phone] | | | | | | | | +--------+ + + + + | 04/04/ | Telephone-S | Surgery | Orquidea Cristobal, | | | 2019 | sherrill | | FURNITURE STAINER [address] | | | | | | [place], [place] | | | | | | [address] | | | | | | [phone] | | | | | | | | +--------+ + + + + documented as of this encounter Visit Diagnoses + + | Diagnosis | + + | Morbid obesity with BMI of 70 and over, adult (HCC) - Primary | + + documented in this encounter
--- OUTSIDE RECORDS SUMMARY | ~2020-02-27 | XMS | Encounter Summary ---
Demographics + + + | Address | [address] | | | [place] [address] | + + + | Home Phone [...] [place], [place] | | | | | [address] | | + + + + + | Ellie Vang | ECON | Unknown | | + + + + + Care Team Providers + +------+ + | Care Associate Professor Of Physics Name | Role | Phone | + [...] | | 2020 | | Preventive at [facility] | MD [address] | (topiramate 100 mg | | | | [address] | [place], [place] | oral tablet TID) | | | | [facility] | [address] | | | | | and Healing, | [phone] | | | | | Building [address] | | | | | | [place], [place] | | | | | | [address] | | | | | | [phone] | | | +--------+--------+ + + + [...] Ave | | | | | | [place], [place] | | | | | | [address] | | | | | | [phone] | | | | | | | | +--------+ + + + + | 04/04/ | Telephone-S | Surgery | Orquidea Cristobal, | | | 2019 | sherrill | | SOFTWARE TEST DEVELOPER [address] | | | | | | [facility], [place] | | | | | | [address] | | | | | | [phone] | | | | | | | | +--------+ + + + + documented as of this encounter Visit Diagnoses Not on filedocumented in this encounter"
--- OUTSIDE RECORDS SUMMARY | ~2020-02-27 | XMS | Encounter Summary ---
Demographics + + + | Address | [address] | | | [place] [address] | + + + | Home Phone [...] [place], [place] | | | | | [address] | | + + + + + | Ellie Vang | ECON | Unknown | | + + + + + Care Team Providers + +------+ + | Care Rehabilitation Technician Name | Role | Phone | [...] | | Alma Delia Mailcode: CH4S | [facility] | | | | | [facility] | [place], [place] | | | | | and Healing, | [address] | | | | | [place] [address] [facility] | [phone] | | | | | Floor [place], [place] | | | | | | [address] | | | | | | [phone] | | | +--------+ + + + [...] [place] | | | | | | [address] | | | | | | [phone] | | | | | | | | +--------+ + + + + | 04/04/ | Telephone-S | Surgery | Orquidea Cristobal, | | | 2019 | cheduled | | SITE ENGINEER [address] | | | | | | [place], [place] | | | | | | [address] | | | | | | [phone] | | | | | | | | +--------+ + + + + documented as of this encounter Visit Diagnoses Not on filedocumented in this encounter"
--- OUTSIDE RECORDS SUMMARY | ~2020-02-27 | XMS | Encounter Summary ---
Demographics + + + | Address | [address] | | | [place] [address] | + + + | Home Phone [...] [place], [place] | | | | | [address] | | + + + + + [...] 02/09/ | Telephone | Digestive Health | [address] | Bariatric Nutrition | | 2015 | | Center at [facility] [address] | [address] | | | | | [facility] | Lesly Gutiérrez [place], | | | | | [facility] and | [place] [address] | | | | | [place] [address] | [phone] | | | | | [place], [place] | | | | | | [address] | | | | | | [phone] | | | +--------+ + + + [...] [address] | | | | | | [place], [place] | | | | | | [address] | | | | | | [phone] | | | | | | | | +--------+ + + + + | 04/04/ | Telephone-S | Surgery | Orquidea Cristobal, | | | 2020 | sherrill | | GENERAL ENGINEER [address] | | | | | | [place] | | | | | | [address] | | | | | | [phone] | | | | | | | | +--------+ + + + + documented as of this encounter Visit Diagnoses Not on filedocumented in this encounter"
--- OUTSIDE RECORDS SUMMARY | ~2020-02-27 | XMS | Encounter Summary ---
Demographics + + + | Address | [address] | | | [place] [address] | + + + | Home Phone [...] [place], [place] | | | | | [address] | | + + + + + | Ellie Vang | ECON | Unknown | | + + + + + Care Team Providers + +------+ + | Care Junior Staff Accountant Name | Role | Phone [...] | | | | | essential | [address] [address] | [address] | | | | | hypertension | [address], | Ave | | | | | Type II or | [address] | [place], [place] | | | | | unspecified | [place], [place] | [address] | | | | | type | [address] | Phone: | | | | | diabetes | Phone: | [phone] | | | | | mellitus | [phone] | Fax: | | | | | without | Fax: | [phone] | | | | | mention of | [phone] | | | | | | complication [...] | | [address] | [place], [place] | (Primary Dx); | | | | [facility] | [address] | Migraine headache | | | | and Healing, | [phone] | | | | | Building [address] | | | | | | [place], [place] | | | | | | [address] | | | | | | [phone] | | | +--------+---------+ + + + [...] in this encounter Patient Instructions Patient Instructions Rnadell Franks MD - 12/05/2013 11:39 AM PDTTake [...] she is hypothyroid and put her on [place] Thyroid hormone replacement therapy. Her heart rate [...] Ave | | | | | | [place], [place] | | | | | | [address] | | | | | | [phone] | | | | | | | | +--------+ + + + + | 04/04/ | Telephone-S | Surgery | Orquidea Cristobal, | | | 2019 | cheduled | | PARKING SUPERVISOR [address] | | | | | | [facility] [place] | | | | | | [address] | | | | | | [phone] | | | | | | | [...] [facility] | [address] | [place] [address] | | | SERVICES, SPECIAL | PARK [...]
--- OUTSIDE RECORDS SUMMARY | ~2020-02-27 | XMS | Encounter Summary ---
Demographics + + + | Address | [address] | | | [place] [address] | + + + | Home Phone [...] [place], [place] | | | | | [address] | | + + + + + [...] | [facility] | | | with BOTTLING SUPERVISOR | | hypertension | [address] | [address] | | | | | Right | [address] | [address] | | | | | heart | [facility] [place] | Center for | | | | | failure | [address] | Health and | | | | | ([facility]) Type | Phone: | Healing, | | | | | 2 diabetes | [phone] | Building [address] | | | | | mellitus | Fax: | [place], [place] | | | | | without | [phone] | [address] | | | | | complication | | Phone: | | | | | , with | | | | | | | long-term | | Fax: | | | | | current use | | [phone] | | | | | of insulin | | | | | | | ([facility] [...] | | 2 diabetes | JEAN, | [place], [place] | | | | | mellitus | [place] [address] | [address] | | | | | without | Phone: | Phone: | | | | | complication | [phone] | [phone] | | | | | (HCC) | Fax: | Fax: | | | | | Procedures | [phone] | [phone] | | | | | [place] EST [...] at [facility] | MD [address] | hypertension | | | | [address] | [place], [place] | (Primary Dx); Right | | | | [facility] | [address] | heart failure (HCC); | | | | and Healing, | [phone] | Type 2 diabetes | | | | Building [address] | | mellitus without | | | | [place], [place] | | complication, with | | | | [address] | | long-term current | | | | [phone] | | use of insulin (HCC) | [...] 81 mg by mouth once daily. CALCIUM CRB&WRS-P1-PLI86-GENIS ORAL Take 2 tablets by mouth two [...] 12 CREATININE PLASMA (LAB) 0.79 EGFR - DOMINICAN >60 EGFR NON -DOMINICAN >60 GLUCOSE, PLASMA (LAB) 170 (H) CALCIUM, [...] 03/22/ | Office | Cardiology | Randell Fransk, | | | 2019 | Visit | | [address] | | | | | | [place], [place] | | | | | | [address] | | | | | | [phone] | | | | | | | | +--------+ + + + + | 04/04/ | Telephone-S | Surgery | Orquidea Cristobal, | | | 2019 | cheduhipolito | | GRADING CLERK [address] | | | | | | [place], [place] | | | | | | [address] | | | | | | [phone] | | | | | | | [...] [facility] | [address] | [place] [address] | | | LYDIA RANGEL | CLARENCE [...] [facility] | [address] | [place], [place] | | | SERVICES, LIPID | [address] | [address] | | + + + + + [...] albumin should be considered for monitoring terminal operator | LABORATORY | | glycemic control in [...] + + | [facility] | [address] [facility] | [place] [address] | | | SERVICES, SPECIAL | PARK [...] | | | LABORATORY | | | DOMINICAN | | | SERVICES, | | | [...] | + + + + + | [facility] | [address] | [place] [address] | | | SERVICES, CORE | CLARENCE [...]
--- OUTSIDE RECORDS SUMMARY | ~2020-02-27 | XMS | Encounter Summary ---
Demographics + + + | Address | [address] | | | [place] [address] | + + + | Home Phone [...] [place], [place] | | | | | [address] | | + + + + + | Ellie Vang | ECON | Unknown | | + + + + + Care Team Providers + +------+ + | Care Plate Former Name | Role | Phone | [...] + + | 06/23/ | Hospital | [facility] [address] | Kaleb Wilcox MD | | | 2017 | Encounter | [address] | [address] | | | | | [address]/[address] | [place], [place] | | | | | [place], | [address] | | | | | [place] [address] | [phone] | | | | | [phone] | | | +--------+ + + + [...] hours or on weekends and holiday Hospital Cart Attendant toll free [phone]. [phone] and have the GI doctor cloud operations engineer paged. The provider who performed your procedure is: Dr. Wilcox Results of your EGD: Dilation performed. You may resume your regular diet. Follow up Appointments with: Follow up with Dr. Pandey in bariatric surgery, thank you for choosing [facility]! Your primary care provider or referring provider [...] | | 0 | | | | CRB&UNS-T9-NXY72-GEN | mouth two times | | | [...] Y gastric bypass Sedation: General anesthesia in [facility] Findings: Normal esophagus Normal appearing gastric pouch [...] 2:35 PM PST PRE PROCEDURE NOTE: MR# [id number] Subjective: Elzbieta Cristina is a 43 y.o. [...] [address] | | | | | | [place], [place] | | | | | | [address] | | | | | | [phone] | | | | | | | | +--------+ + + + + | 04/04/ | Telephone-S | Surgery | Orquidea Cristobal, | | | 2019 | cheduled | | STEEL BOX TOE INSERTER [address] | | | | | | [place], [place] | | | | | | [address] | | | | | | [phone] | | | | | | | [...] -----+ | MRN: | [facility] | | [id number] Date: 06/23/2018Patient Name: Elzbieta Curtis #: | ENDOSCOP Y | | [id number] of : 1975CSN: [id number] Type: | | | AmbulatoryRoom: SORProcedure: Upper GI | | | endoscopyIndications: Nausea with vomiting, Status post | | | Salu-uv-COefivlwnv: KALEB WILCOX MD (Doctor), JOSE | | | NASIMA, Employment Supervisor | | | (Employment Supervisor)Referring MD: DANIELLE GARCÍAPRequestdonya | | | Provider: [...] | | | The Olympus GIF-[id number] Gastroscope #[id number] was | | | introduced through the [...] endoscope without resistance. The | | | dhpib-ua-wqijiiz limb was characterized by healthy appearing | [...] NKECHI AMES | [address] | [place], [place] | | | [facility] | [address] | [address] | | | TESTS | | | [...] | | | | | | Until [facility] 06/24/18 at 0027, | | | [...] 06/23/18 at 1532, | | | Until [facility] 06/24/18 at 0027, | | | [...]
--- OUTSIDE RECORDS SUMMARY | ~2020-02-27 | XMS | Encounter Summary ---
Demographics + + + | Address | [address] | | | [place] [address] | + + + | Home Phone [...] [place], [place] | | | | | [address] | | + + + + + [...] | 2019 | | Preventive at [facility] | MD [address] | (PHENTERMINE 37.5 mg | | | | [address] | [place], [place] | oral tablet); | | | | [facility] | [address] | Refill Request | | | | and Healing, | [phone] | | | | | [place] [address] | | | | | | [place], [place] | | | | | | [address] | | | | | | [phone] | | | +--------+--------+ + + + [...] Ave | | | | | | [place], [place] | | | | | | [address] | | | | | | [phone] | | | | | | | | +--------+ + + + + | 04/04/ | Telephone-S | Surgery | Orquidea Cristobal, | | | 2019 | cheduhipolito | | COLOR CARD MAKER [address] | | | | | | [place], [place] | | | | | | [address] | | | | | | [phone] | | | | | | | | +--------+ + + + + documented as of this encounter Visit Diagnoses Not on filedocumented in this encounter"
--- OUTSIDE RECORDS SUMMARY | ~2020-02-27 | XMS | Encounter Summary ---
Demographics + + + | Address | [address] | | | [place] [address] | + + + | Home Phone [...] [place], [place] | | | | | [address] | | + + + + + | Ellie Vang | ECON | Unknown | | + + + + + Care Team Providers + +------+ + | Care Market Relationship Manager Name | Role | Phone [...] 2015 | | Preventive at [facility] | MD [address] | (phentermine 37.5 mg | | | | [address] | [place], [place] | ) | | | | [facility] | [address] | | | | | and Erick, | [phone] | | | | | [place] [address] | | | | | | [place], [place] | | | | | | [address] | | | | | | [phone] | | | +--------+--------+ + + + [...] [address] | | | | | | [place], [place] | | | | | | [address] | | | | | | [phone] | | | | | | | | +--------+ + + + + | 04/04/ | Telephone-S | Surgery | Orquidea Cristobal, | | | 2020 | sherrill | | SQUEEGEE OPERATOR [address] | | | | | | [place], [place] | | | | | | [address] | | | | | | [phone] | | | | | | | | +--------+ + + + + documented as of this encounter Visit Diagnoses Not on filedocumented in this encounter"
--- OUTSIDE RECORDS SUMMARY | ~2020-02-27 | XMS | Encounter Summary ---
Demographics + + + | Address | [address] | | | [place] [address] | + + + | Home Phone [...] [place], [place] | | | | | [address] | | + + + + + [...] | | 2016 | | Preventive at [facility] | MD [address] | | | | | [address] | [place], [place] | | | | | [facility] | [address] | | | | | and Healing, | [phone] | | | | | [address] | | | | | | [facility] [place] | | | | | | [address] | | | | | | [phone] | | | +--------+ + + + [...] [address] | | | | | | [place], [place] | | | | | | [address] | | | | | | [phone] | | | | | | | | +--------+ + + + + | 04/04/ | Telephone-S | Surgery | Orquidea Cristobal, | | | 2019 | sherrill | | WET PRESS TENDER [address] | | | | | | [place], [place] | | | | | | [address] | | | | | | [phone] | | | | | | | | +--------+ + + + + documented as of this encounter Visit Diagnoses Not on filedocumented in this encounter"
--- OUTSIDE RECORDS SUMMARY | ~2020-02-27 | XMS | Encounter Summary ---
Demographics + + + | Address | [address] | | | [place] [address] | + + + | Home Phone [...] Team Providers + +------+ + | Care Tubular Stock Glass Bulb Machine Former Name | Role | Phone | + +------+ + | Fadi Goodrich DO | PCP | | + +------+ + Reason for Visit + + + | Reason | Comments | + + + | Medical Records | Letter from bilingual case manager. | | Review | | + + + Encounter Details +--------+ + + + + | Date | Type | Department | Care Team | Description | +--------+ + + + + | 11/08/ | Abstract | Digestive Health | Shereen Georges, | Medical Records | | 2014 | | Center at [facility] [address] | [facility] [address] | Review (Letter from | | | | [address] [facility] | [place], [place] | bilingual case manager. ) | | | | for Health and | [address] | | | | | [facility], [place] [address] | [phone] | | | | | [place], [place] | | | | | | [address] | | | | | | [phone] | | | +--------+ + + + [...] Ave | | | | | | [place], [place] | | | | | | [address] | | | | | | [phone] | | | | | | | | +--------+ + + + + | 04/04/ | Telephone-S | Surgery | Orquidea Cristobal, | | | 2019 | cheduled | | COMMUNITY DEVELOPMENT OFFICER [address] | | | | | | [place], [place] | | | | | | [address] | | | | | | [phone] | | | | | | | | +--------+ + + + + documented as of this encounter Visit Diagnoses Not on filedocumented in this encounter"
--- OUTSIDE RECORDS SUMMARY | ~2020-02-27 | XMS | Encounter Summary ---
Demographics + + + | Address | [address] | | | [place] [address] | + + + | Home Phone [...] [place], [place] | | | | | [address] | | + + + + + | Ellie Vang | ECON | Unknown | | + + + + + Care Team Providers + +------+ + | Care Labeler Name | Role | Phone | + [...] | | 2015 | | Center at [facility] [address] | [address] | | | | | [facility] | Lesly Gutiérrez [place], | | | | | [facility] and | [place] [address] | | | | | [place] [address] | [phone] | | | | | [place], [place] | | | | | | [address] | | | | | | [phone] | | | +--------+ + + + [...] [address] | | | | | | [place], [place] | | | | | | [address] | | | | | | [phone] | | | | | | | | +--------+ + + + + | 04/04/ | Telephone-S | Surgery | Orquidea Cristobal, | | | 2020 | sherrill | | ASPHALT ROLLER PERSON [address] | | | | | | [place] | | | | | | [address] | | | | | | [phone] | | | | | | | | +--------+ + + + + documented as of this encounter Visit Diagnoses Not on filedocumented in this encounter"
--- OUTSIDE RECORDS SUMMARY | ~2020-02-27 | XMS | Encounter Summary ---
Demographics + + + | Address | [address] | | | [place] [address] | + + + | Home Phone [...] [place], [place] | | | | | [address] | | + + + + + | Ellie Vang | ECON | Unknown | | + + + + + Care Team Providers + +------+ + | Care Weatherization Crew Leader Name | Role | Phone | + +------+ + | Fadi Goodrich DO | PCP | | + +------+ + Encounter Details +--------+ + + + + | Date | Type | Department | Care Team | Description | +--------+ + + + + | 10/04/ | Abstract | Digestive Health | Hernandez Brian, | | | 2012 | | [place] [address] [address] | [address] [facility] | | | | | [address] [facility] | [facility] | | | | | for Health and | [place], [place] | | | | | [facility] 2 | [address] | | | | | [place], [place] | [phone] | | | | | [address] | | | | | | [phone] | | | +--------+ + + + [...] [place] | | | | | | [address] | | | | | | [phone] | | | | | | | | +--------+ + + + + | 04/04/ | Telephone-S | Surgery | Orquidea Cristobal, | | | 2019 | cheduled | | UTILITY PLANT OPERATIVE [address] | | | | | | [place], [place] | | | | | | [address] | | | | | | [phone] | | | | | | | | +--------+ + + + + documented as of this encounter Visit Diagnoses Not on filedocumented in this encounter"
--- OUTSIDE RECORDS SUMMARY | ~2020-02-27 | XMS | Encounter Summary ---
Demographics + + + | Address | [address] | | | [place] [address] | + + + | Home Phone [...] [place], [place] | | | | | [address] | | + + + + + | Ellie Vang | ECON | Unknown | | + + + + + Care Team Providers + +------+ + | Care Printer'S Assistant Name | Role | Phone | [...] | | | [facility] | | | | | | | [facility] and | | | | | | | Healing, | | | | | | | [address] | | | | | | | [place], [place] | | | | | | | [address] | | | | | | | Phone: | | | | | | | [phone] | | | | | | | Fax: | | | | | | | [phone] | +--------+--------+ + + + + Encounter Details +--------+---------+ + + + | Date | Type | Department | Care Team | Description | +--------+---------+ + + + | 06/16/ | Office | Digestive Health | Shereen Georges, | Morbid obesity with | | 2012 | Visit | Center at [facility] [address] | ACNP [address] | BMI of 70 and over, | | | | [address] | Ave [place], [place] | adult (HCC) (Primary | | | | for Health and | [address] | Dx); Vitamin D | | | | Healing, [address] | | deficiency disease; | | | | [place], [place] | | Intertriginous | | | | [address] | | candidiasis; | | | | [...] Psychological Evaluation: If your referral is at [facility], pain management will call y oneil [...] the time. If your referral is at [facility], they will call y ou in the next week to schedule. She will arrange 8. Nephrology Consult: Please call [employer] ([phone]) and have them send you a urine specimen container. You will need to discuss your kidney stone risk with a nephrology provid er prior to proceeding with gastric bypass. If your referral is at [facility], they will call you in the [...] at the same time: betsy Feldman RN, AMBULATORY NURSE- Nurse Practitioner for Bariatric Surgery [facility] | [address] | [place], [place] | [address] | Potential Contraindications to Bariatric Surgery Age [...] other providers does not guarantee that the [facility] Bariatric Surger y program will deem you a surgical candidate. documented in this encounter Progress Notes Shereen Pinto ACNP - 06/16/2013 1:28 PM PSTFormatting of this note might be different fro m the original. BARIATRIC INITIAL VISIT Provider: Shereen Pinto DNP, ACNP, AMBULATORY NURSE Referring Provider: Dr. Fadi Goodrich, [place] [phone] Reason for Requested Consultation: Initial evaluation for bariatric surgery. Elzbieta Farooq is interested in Frandy en y alfredo tomeka bypass. The pt is here With her sister. Following surgery her mother and sister will care for her, she will Stay in [place] after surgery so that she is close by. She lives in [place]. They have few stairs to get into [...] recently gained weight, she met with our metal grinder today, she has been making poor food [...] none Use of Redux or Phen/fen: no Baptism or cultural reason you would refuse blood [...] as well , hypertension, hyperlipidemia. Denies CHF, AL, ischemic heart disease, DVT/PE, or pulmonary hypertension. [...] therapy. 8. Nephrology Consult: Please call [facility] ([phone]) and have them send you a urine specimen container. You will need to discuss your kidney stone risk with a nephrology provid er prior to proceeding with gastric bypass. If your referral is at [facility], they will call you in the next week to schedule. You are at increased risk of renal stones after surgery, with your history of stone, we want to check of oxalate in your urine. You will need a referral to a heavy equipment operator/paver If your level is elevated. 9. See [...] soon as possible Shereen Pinto DNP ACNP, AMBULATORY NURSE Nurse Practitioner for Bariatric Surgery [facility] | [address] | [place] | [address] | Potential Contraindications to Bariatric Surgery Age [...] other providers does not guarantee that the [facility] Bariatric Surger y program will deem [...] [address] | | | | | | [place], [place] | | | | | | [address] | | | | | | [phone] | | | | | | | | +--------+ + + + + | 04/04/ | Telephone-S | Surgery | Orquidea Cristobal, | | | 2020 | cheduled | | AMBULATORY NURSE [address] | | | | | | [place], [place] | | | | | | [address] | | | | | | [phone] | | | | | | | [...] at | | | | | | [employer] | | | | | | developed and | | | | | | characteristics | | | | | | determined by | | | | | | [employer]. See | | | | | | Compliance Statement B: | | | | | | [email or web address]/CSPerformed | | | | | | by [facility],[address] | | | | | | Liliana Martinez, [facility],[place] | | | | | | [address] | | | | | | [phone]. | | | | | | com, [...] at | | | | | | [employer] | | | | | | developed and | | | | | | characteristics | | | | | | determined by | | | | | | [employer]. See | | | | | | Compliance Statement B: | | | | | | [employer]/CS | | | | + + + + + + + + | Specimen | + + | Blood - Blood | + + + + + + + | Performing | Address | City/State/Zipcode | Phone Number | | Organization | | | | + + + + + | [facility] | [address] | [place], [place] | | | [facility] | | [address] | | + + + + + [...]
--- OUTSIDE RECORDS SUMMARY | ~2020-02-27 | XMS | Encounter Summary ---
Demographics + + + | Address | [address] | | | [place] [address] | + + + | Home Phone [...] + | Katalina Padilla | ECON | [address] | | | | | [place], [place] | | | | | [address] | | + + + + + | Ellie Vang | ECON | Unknown | | + + + + + Care Team Providers + +------+ + | Care Information Systems Analyst Name | Role | Phone [...] | [address] | Ave [facility] [place] | | | | | for Health and | [address] | | | | | Healing, [facility] [address] | [phone] | | | | | [place], [place] | | | | | | [address] | | | | | | [phone] | | | +--------+ + + + [...] Ave | | | | | | [place], [place] | | | | | | [address] | | | | | | [phone] | | | | | | | | +--------+ + + + + | 04/04/ | Telephone-S | Surgery | Orquidea Cristobal, | | | 2019 | cheduled | | YARD SPECIALIST [address] | | | | | | [place], [place] | | | | | | [address] | | | | | | [phone] | | | | | | | | +--------+ + + + + documented as of this encounter Visit Diagnoses Not on filedocumented in this encounter"
--- OUTSIDE RECORDS SUMMARY | ~2020-02-27 | XMS | Encounter Summary ---
Demographics + + + | Address | [address] | | | [place] [address] | + + + | Home Phone [...] + | Katailna Padilla | ECON | [address] | | | | | [place], [place] | | | | | [address] | | + + + + + | Ellie Vang | ECON | Unknown | | + + + + + Care Team Providers + +------+ + | Care Risk Consulting Treasury Director Name | Role | Phone | [...] + + | 01/01/ | Emergency | [facility] Emergency | Fide Hester | | | 2017 - | | Department [address] | MD Raza [address] [facility] | | | | | [address] | [address] | | | 01/02/ | | [facility] | [place], [place] | | | 2017 | | [place], [place] | [address] | | | | | [address] | [phone] | | | | | [phone] | | | | | | | Jaime Yee, | | | | | | ANP [address] | | | | | | [facility] [address] | | | | | | [place], [place] | | | | | | [address] | | | | | | [phone] | | | | | | | | | | | | Sheree Aguiar MD | | | | | | [address] | | | | | | [place], [place] | | | | | | [address] | | | | | | | | | | | | Felix Cardoza, | | | | | | PUMPER GAGER APPRENTICE [address] | | | | | | [facility] [address] | | | | | | [place], [place] | | | | | | [address] | | | | | | [phone] | | | | | | | [...] ready for discharge. Thank you for choosing [facility] for your healthcare needs. Abdominal [...] living will and a durable power of erisa attorney for health care. Bring a copy [...] apply lotions, perfume s, deodorants, or nail maldivian. Do not shave the surgical site yourself. [...] driving, and getting back to your [facility] routine. When should you call your [...] Repair: Before Your Surgery", log into your [employer] a ccount at [email or web address]. You can enter U288 in the "Jackrabbit Library" search box . Not on [employer]? Review the M3X Mediat section of your After Visit Summary for directions on anjel aguero to sign up. Current as of: March 04, 2016 Content Version: 11.2 4554-6093 [employer]. Care instructions adapted under license by [facility]. If you have questions about a medical condition or this instr uction, always ask your healthcare professional. [employer] disclaims any curly anty or liability for [...] changes in the way you eat. An residential lawn specialist to help you be more active [...] Prepare for Weight-Loss Surgery", log into your [employer] account at [email or web address]. You can enter C413 in the "Jackrabbit Library" s earch box. Not on [employer]? Review the [employer] section of your After Visit Summary for directions on anjel w to sign up. Current as of: May 08, 2016 Content Version: 11.2 [id number] [employer]amos. Care instructions adapted under license by [facility]. If you have questions about a medical condition or this instr uction, always ask your healthcare professional. [employer] disclaims any curly anty or liability for [...] | | 0 | | | | CRB&WOB-X4-RAD48-GEN | mouth two times | | | [...] PDT [facility] DEPARTMENT OF SURGERY EMERGENCY GENERAL SURGERY [...] wall hernias, laci hobbs was flown from [place] with abdominal pain from a recurrent, reducible [...] uss with Dr. Moore. Mary Ball MD [id number] [facility] [place] A [address] [place] [facility] [place] [address] documented in this en counter Plan of Treatment +--------+ + + + + | Date | Type | Specialty | Care Team | Description | +--------+ + + + + | 03/22/ | Office | Cardiology | Randell Franks, | | | 2019 | Visit | | [address] | | | | | | [place], [place] | | | | | | [address] | | | | | | [phone] | | | | | | | | +--------+ + + + + | 04/04/ | Telephone-S | Surgery | Ora Cristobalica, | | | 2019 | sherrill | | PUMPER GAGER APPRENTICE [address] | | | | | | [place], [place] | | | | | | [address] | | | | | | [phone] | | | | | | | [...] AMES | [address] | [place], [place] | | | JUSTINE DAWN OF CARE | [address] | [address] | | | TESTS | | | [...] | | | LABORATORY | | | [place] CITIZEN | | | SERVICES, | | [...] HOSPITAL LABORATORY | [address] | [place] [address] | | | SERVICES, CORE | CLARENCE [...] AMES | [address] | [place], [place] | | | JUSTINE DAWN OF CARE | [address] | [address] | | | TESTS | | | [...] [facility] | [address] | [place] [address] | | | SERVICES, CORE | PARK [...] [facility] | [address] | [place] [address] | | | SERVICES, LYDIA | PARK [...] + | [facility] - | [address] | [place] [address] | | | [place] | | | [...] HOSPITAL LABORATORY | [address] | [place] [address] | | | SERVICES, CORE | CLARENCE [...] YAKOVAM | [address] | [place], [place] | | | [place] POINT OF CARE | [facility] | [address] | | | TESTS | | | [...] [facility] | [address] | [place] [address] | | | SERVICES, | [address] [...] [facility] | [address] | [place] [address] | | | SERVICES, | [address] [...] [facility] | [address] | [place] [address] | | | LYDIA RANGEL | CLARENCE [...] | [facility] | [address] | [place] [address] | | | SERVICES, CORE | PARK [...] | | | LABORATORY | | | [place] CITIZEN | | | SERVICES, | | [...] [facility] | [address] | [place] [address] | | | SERVICES, CORE | [address] | | | + + + + + ED INFORMATION EXCHANGE (01/01/2017 8:22 AM PDT) + + + + + + | Component | Value | Ref Range | Performed | Pathologist | | | | | At | Signature | + + + + + + | [facility] | [id number] | | [facility] | | | | [id number] | | MEDICAL | | | | [...] ----- ---- | | | RADHA alonso [facility] | | | [facility] Unknown Primary Care | | | Unknown - Current Radha Goodrich DO | | | [phone] Primary Care | | | Unknown - Current | | + + + + + + + + | Performing | Address | City/State/Zipcode | Phone Number | | Organization | | | | + + + + + | [facility] | [address] | [place], [place] | [phone] | | TECHNOLOGIES | [address] | [address] | | + + + + + [...] | | | | Last dose on Marrero 01/04/17 at 0700 | | | | [...] | | | | First dose on [facility] 01/01/17 at 1945, | | AM PDT [...] | | | | ONCE, 1 dose, [facility] 01/01/17 at 0945 | | AM PDT [...]
--- OUTSIDE RECORDS SUMMARY | ~2020-02-27 | XMS | Encounter Summary ---
Demographics + + + | Address | [address] | | | [place] [address] | + + + | Home Phone [...] [place], [place] | | | | | [address] | | + + + + + | Ellie Vang | ECON | Unknown | | + + + + + Care Team Providers + +------+ + | Care Rehab Director Name | Role | Phone | [...] MD,PhD | | | | | [facility] | [address] | | | | | Hospital Admitting | [place], [place] | | | | | Desk Located on the | [address] | | | | | 9th floor | [phone] | | | | | [place], [place] | | | | | | [address] | Graham Honeycutt, | | | | | | [employer] ADVISOR [address] | | | | | | [address] | | | | | | [place], [place] | | | | | | [address] | | | | | | [phone] | | | | | | | [...] | | Endotracheal Tube; 7; Oral; | [employer] ADVISOR | [employer] ADVISOR | | | Cuffed; 06/23/18; 1542 | [...] [place] | | | | | | [address] | | | | | | [phone] | | | | | | | | +--------+ + + + + | 04/04/ | Telephone-S | Surgery | Orquidea Cristobal, | | | 2019 | sherrill | | REHAB CONSULTANT [address] | | | | | | [place], [place] | | | | | | [address] | | | | | | [phone] | | | | | | | [...]
--- OUTSIDE RECORDS SUMMARY | ~2020-02-27 | XMS | Encounter Summary ---
Demographics + + + | Address | [address] | | | [place] [address] | + + + | Home Phone [...] Organization | [facility] [...] Providers + +------+ + | Care Learning Engineer Name | Role | Phone | + +------+ + PCP | Unavailable | + +------+ + Encounter Details +--------+ + + + + | Date | Type | Department | Care Team | Description | +--------+ + + + + | 10/07/ | Orders Only | [facility] | Dharmesh Escobar, | | | 2017 | | NEPHROLOGY JESUS | COUNTY RECORDS MANAGEMENT OFFICER [address] | | | | [address] | [address] | | | | | [address] [facility] [place] | [place], [place] | | | | | [address] | [address] | | | | | [phone] | [phone] | | | | | | | [...] | | | | | | [place] [address] | | | | | | [phone] | | | | | | | | +--------+ + + + + | 03/29/ | Office | Cardiology | Sulema Altamirano | | | 2019 | Visit | | [address] | | | | | | [address] | | | | | | [place] [address] | | | | | | [phone] | | | | | | | [...] | | | LAB | | | Dominican | | | | | + +---------+ [...]
--- OUTSIDE RECORDS SUMMARY | ~2020-02-27 | XMS | Encounter Summary ---
Demographics + + + | Address | [address] | | | [place] [address] | + + + | Home Phone [...] [place], [place] | | | | | [address] | | + + + + + | Ellie Vang | ECON | Unknown | | + + + + + Care Team Providers + +------+ + | Care Tie Bucker Name | Role | Phone | + +------+ + PCP | Unavailable | + +------+ + Encounter Details +--------+ + + + + | Date | Type | Department | Care Team | Description | +--------+ + + + + | 05/13/ | Results | | Other, Faculty | | | 1992 | Only | | [phone] | | +--------+ + + + + [...] Ave | | | | | | [place], [place] | | | | | | [address] | | | | | | [phone] | | | | | | | | +--------+ + + + + | 04/04/ | Telephone-S | Surgery | Orquidea Cristobal, | | | 2019 | cheduled | | SURGICAL AIDE [address] | | | | | | [place], [place] | | | | | | [address] | | | | | | [phone] | | | | | | | [...]
--- OUTSIDE RECORDS SUMMARY | ~2020-02-27 | XMS | Encounter Summary ---
Demographics + + + | Address | [address] | | | [place] [address] | + + + | Home Phone [...] [place], [place] | | | | | [address] | | + + + + + | Ellie Vang | ECON | Unknown | | + + + + + Care Team Providers + +------+ + | Care Natural Resources Professor Name | Role | Phone | [...] | | | | and over, | [place], [place] | and Healing, | | | | | adult (HCC) | [address] | Building 1, | | | | | Severe | Phone: | 1st Floor | | | | | muscle | | [place], [place] | | | | | deconditioni | Fax: | [address] | | | | | ng | [phone] | Phone: | | | | | Procedures | | [phone] | | | | | PHYSICAL | | Fax: | | | | | THERAPY | | [phone] | | | | | REFERRAL | | | +--------+--------+ + + + + Encounter Details +--------+ + + + + | Date | Type | Department | Care Team | Description | +--------+ + + + + | 02/02/ | Paralegal Legal Secretary | Digestive Health | Shereen Georges, | Morbid obesity with | | 2017 | | Center at [facility] [address] | ACNP [address] | BMI of 70 and over, | | | | [address] | Ave [place], [place] | adult (HCC) (Primary | | | | for Health and | [address] | Dx); Severe muscle | | | | Healing, Building 2 | | deconditioning | | | | [place], [place] | | | | | | [address] | | | | | | | [...] | | 2019 | Visit | | [address] | | | | | | [place], [place] | | | | | | [address] | | | | | | [phone] | | | | | | | | +--------+ + + + + | 04/04/ | Telephone-S | Surgery | Orquidea Cristobal, | | | 2019 | cheduled | | SENIOR BOILER OPERATOR [address] | | | | | | [place], [place] | | | | | | [address] | | | | | | [phone] | | | | | | | [...]
--- OUTSIDE RECORDS SUMMARY | ~2020-02-27 | XMS | Encounter Summary ---
Demographics + + + | Address | [address] | | | [place] [address] | + + + | Home Phone [...] [place], [place] | | | | | [address] | | + + + + + | Ellie Vang | ECON | Unknown | | + + + + + Care Team Providers + +------+ + | Care Review Consultant Name | Role | Phone | [...] | [facility] | | | with ULTRASOUND SPECIALIST | | hypertension | [address] | [address] | | | | | Right | [address] | [address] | | | | | heart | [place], [place] | Center for | | | | | failure | [address] | Health and | | | | | ([facility]) Type | Phone: | Healing, | | | | | 2 diabetes | [phone] | Building 2 | | | | | mellitus | Fax: | [place], [place] | | | | | without | [phone] | [address] | | | | | complication | | Phone: | | | | | , with | | [phone] | | | | | long-term | | Fax: | | | | | current use | | [phone] | | | | | of insulin [...] | Center at [facility] [address] | GLUE SPRAYER [address] | gastric bypass | | | | [address] | [place], [place] | (Primary Dx); | | | | for Health and | [address] | Intertriginous | | | | Healing, Building 2 | [phone] | candidiasis | | | | [place], [place] | | | | | | [address] | | | | | | [phone] | | | +--------+---------+ + + + [...] Has a new PCP, Dr. Cardenas in [facility]. Bariatric Measures: Activity: walking 1.5-2 miles daily [...] History Narrative Updated 11/09/15 She lives in [place] with her mother and her sister (also her caregiver) lives in an apa rtment/duplex below. She has 2 grandchildren (age 4 and 7) who live with her daughter and son-in-law Her boyfriend lives in [place] HFpEF, DM2, HTN, Sleep Apnea (unable to [...] and refer her to our rn cardiac who also has expertise in physical activity [...] tongue once daily., Disp: , Rfl: CALCIUM [id number]-GENIS ORAL, Take 2 tablets by mouth two [...] n/a -HTN: still on medications -Diabetes: seeing chha in December, hopes to eliminate Metformin then as recent A1c was normal Return to bariatric clinic in 6 months for 1 year follow up visit See your primary care provider for adjusting any other medications. Call if any abdominal pain, n/v/d or other issues. Pt agrees to plan and will call and/or send Yakimbi message if any issues. Start time 2:45, end time 3:10. I spent a total of 25 minutes face to face with this patie nt. Over 50% of visit was in counseling. HILDA Davalos Bariatric Surgery Nurse Practitioner [facility] | [id number] | [place], [place] | [address] | documented in this encounter Plan of Treatment +--------+ + + + + | Date | Type | Specialty | Care Team | Description | +--------+ + + + + | 03/22/ | Office | Cardiology | Randell Franks, | | | 2019 | Visit | | [address] | | | | | | [place], [place] | | | | | | [address] | | | | | | [phone] | | | | | | | | +--------+ + + + + | 04/04/ | Telephone-S | Surgery | Orquidea Cristobal, | | | 2019 | sherrill | | GLUE SPRAYER [address] | | | | | | [place], [place] | | | | | | [address] | | | | | | [phone] | | | | | | | [...] | | e | 3:29 PM | Inlesh-en-Y gastric | procedure are in the | | | | PDT | bypass | results section. | + +--------+ + + + | VITAMIN D, | Routin | 10/12/2018 | History of | Results for this | | 25-HYDROXY, SERUM | e | 3:29 PM | Inlesh-en-Y gastric | procedure are in the | [...] [facility] | [address] | [place] [address] | | | SERVICES, CORE | PARK [...] | + + + + + | [facility] | [address] | [place] [address] | | | CLAIRE, LYDIA | CLARENCE [...] INTFC | | | | determined by [facility] | | | | | | Laboratories. See | | | | | | Compliance Statement B: | | | | | | AppThwack/CSPerformed | | | | | | by allyve,[address] | | | | | | Liliana Martinez, [facility],[place] | | | | | | [address] | | | | | | [phone].TELiBrahma. | | | | | | Ismael [...] [facility] | [address] | [place], [place] | | | UNIV PTH - INTFC | | [address] | | + + + + + [...] | | | | | determined by [facility] | | | | | | Laboratories. See | | | | | | Compliance Statement B: | | | | | | AppThwack/CSPerformed | | | | | | by allyve,[address] | | | | | | Liliana Martinez, [facility],[place] | | | | | | [address] | | | | | | [phone].TELiBrahma. | | | | | | com, [...] + + | [facility] | [address] [facility] | [place], [place] | | | UNIV PTH - INTFC | | [address] | | + + + + + [...] [facility] | | | (YEN NOAH) | [place] [facility],[address] | | REG UNIV | | | SERUM | [place], [place] | | PTH - INTFC | | | | [address] | | | | | | [phone].TELiBrahma. | | | | | | com, [...] B: | | | | | | TELiBra[employer].Electronic Payment and Services (EPS)/CS | | | | + + + + + + + + | Specimen | + + | Blood - Blood | | (substance) | + + + + + + + | Performing | Address | City/State/Zipcode | Phone Number | | Organization | | | | + + + + + | [facility] | [address] | [place], [place] | | | UNIV PTH - INTFC | | [address] | | + + + + + [...] [facility] | [address] | [place] [address] | | | SERVICES, CORE | PARK [...] | + + + + + | [facility] | [address] | [place] [address] | | | SERVICES, CORE | CLARENCE [...] B: | | | | | | T[employer].Electronic Payment and Services (EPS)/CSPerformed | | | | | | by allyve,[address] | | | | | | Liliana Martinez [place], [place] | | | | | | [address] | | | | | | [phone].TELiBrahma. | | | | | | comIsmael [...] [facility] | [address] | [place], [place] | | | UNIV PTH - INTFC | | [address] | | + + + + + [...] [facility] | [address] | [place] [address] | | | SERVICES, CORE | CLARENCE [...] | | | | | determined by [facility] | | | | | | Laboratories. See | | | | | | Compliance Statement B: | | | | | | TELiBrahma.Electronic Payment and Services (EPS)/CSPerformed | | | | | | by allyve,[address] | | | | | | Liliana Martinez, [facility],[place] | | | | | | [address] | | | | | | [phone].TELiBrahma. | | | | | | comIsmael [...] [facility] | [address] | [place], [place] | | | UNIV PTH - INTFC | | [address] | | + + + + + [...] [facility] | [address] | [place] [address] | | | SERVICES, CORE | PARK [...] | + + + + + | [facility] | [address] | [place] [address] | | | SERVICES, SPECIAL | PARK [...] | + + + + + | [facility] | [address] | [place] [address] | | | SERVICES, CORE | CLARENCE [...] at | | | | | | [email or web address].Electronic Payment and Services (EPS)/csPerfor | | | | | | med by [facility] | | | | | | [facility],[address] [place] [address] | | | | | | [place] [address] | | | | | | [phone].TELiBrahma. | | | | | | [facility] centerIsmael MD, | | | | [...] [facility] | [address] | [place], [place] | | | UNIV PTH - INTFC | | [address] | | + + [...] | | | LABORATORY | | | SAM[place] | | | SERVICES, | | | [...] [facility] | [address] | [place] [address] | | | SERVICES, CORE | PARK [...]
--- OUTSIDE RECORDS SUMMARY | ~2020-02-27 | XMS | Encounter Summary ---
Demographics + + + | Address | [address] | | | [place] [address] | + + + | Home Phone [...] [place], [place] | | | | | [address] | | + + + + + | Ellie Vang | ECON | Unknown | | + + + + + Care Team Providers + +------+ + | Care Scroll Saw Operator Name | Role | Phone [...] | [address] | Lesly Guti[place]rez [place], | | | | | Mailcode: CH6A | [place] [address] | | | | | [place], [place] | | | | | | [address] | | | | | | [phone] | | | +--------+ + + + [...] [address] | | | | | | [place], [place] | | | | | | [address] | | | | | | [phone] | | | | | | | | +--------+ + + + + | 04/04/ | Telephone-S | Surgery | Orquidea Cristobal, | | | 2019 | cheduled | | ERGONOMICS ENGINEER [address] | | | | | | [place], [place] | | | | | | [address] | | | | | | [phone] | | | | | | | | +--------+ + + + + documented as of this encounter Visit Diagnoses Not on filedocumented in this encounter"
--- OUTSIDE RECORDS SUMMARY | ~2020-02-27 | XMS | Encounter Summary ---
Demographics + + + | Address | [address] | | | [place] [address] | + + + | Home Phone [...] [place], [place] | | | | | [address] | | + + + + + | Ellie Vang | ECON | Unknown | | + + + + + Care Team Providers + +------+ + | Care Manager Of Software Development Name | Role | Phone | [...] Hospital | | | | | | [place], [place] | | | | | | [address] | | | | | | [phone] | | | +--------+ + + + [...] Ave | | | | | | [place], [place] | | | | | | [address] | | | | | | [phone] | | | | | | | | +--------+ + + + + | 04/04/ | Telephone-S | Surgery | Orquidea Cristobal, | | | 2019 | cheduled | | MINK SLICER [address] | | | | | | [facility] [place] | | | | | | [address] | | | | | | [phone] | | | | | | | | +--------+ + + + + documented as of this encounter Visit Diagnoses Not on filedocumented in this encounter"
--- OUTSIDE RECORDS SUMMARY | ~2020-02-27 | XMS | Encounter Summary ---
Demographics + + + | Address | [address] | | | [place] [address] | + + + | Home Phone [...] Providers + +------+ + | Care Healthcare Translator Name | Role | Phone | + [...] Closed | | Radiology | Diagnoses | [place], | [facility] | | | | | Deep vein | Dharmesh | Intra Op [address] | | | | | thrombosis | MD Natan | [address] | | | | | (DVT) of | [address] | [place], [place] | | | | | left lower | [address] | [address] | | | | | extremity, | [address] | Phone: | | | | | unspecified | [place], [place] | [phone] | | | | | chronicity, | [address] | Fax: | | | | | unspecified | Phone: | [phone] | | | | | vein (HCC) | [phone] | | | | | | Procedures | Fax: | | | | | | IR Removal | [phone] | | | | | | Fibrin [...] Closed | | Radiology | Diagnoses | [place], | [facility] | | | | | Deep vein | Dharmesh | Intra [address] | | | | | thrombosis | MD Natan | [address] | | | | | (DVT) of | [address] | [place], [place] | | | | | left lower | [address] | [address] | | | | | extremity, | [address] | Phone: | | | | | unspecified | [place], [place] | [phone] | | | | | chronicity, | [address] | Fax: | | | | | unspecified | Phone: | [phone] | | | | | vein (HCC) | [phone] | | | | | | Procedures | Fax: | | | | | | IR Removal | [phone] | | | | | | Fibrin | | | | | | | Sheath/Clot | | | | | | | on Device | | | +--------+--------+ + + + + Encounter Details +--------+ + + + + | Date | Type | Department | Care Team | Description | +--------+ + + + + | 06/22/ | Hospital | [facility] | Dharmesh Melchor | Deep vein thrombosis | | 2019 | Encounter | CENTER CV INTRA OP | MD Natan [address] | (DVT) of left lower | | | | [address] | [address] | extremity, | | | | [place], [place] | [place] [address] | unspecified | | | | [address] | [phone] | chronicity, | | | | [phone] | | unspecified vein | | | | | Christian Dawson MD | (HCC) | | | | | [address] | | | | | | [address] [place], [place] | | | | | | [address] | | | | | | | [...] notice any of the signs, contact the [facility] at between 8:00 am and [...] | | 0 | | | | Ewasqkp-Jdhsdauxl-Aa | mouth 2 times daily. | | [...] + +---------+ + + | thyroid (HEAD UP OPERATOR HELPER | HEAD UP OPERATOR HELPER Thyroid 30 mg | | 0 [...] Sheree Snow RN at 06/22 10:36 AM PSTMorSheree colindres RN - 06/22/2019 10:00 AM PSTPt [...] right ventricular diastolic dysfunction (HCC) 10/26/2015 Overview: [facility] Last Assessment & Plan: Patient with morbid [...] m inimally to prevent oversedation and worsening hypoxia/AMAAR; she mostly required 0.5mg qhs to help tolerate her new BiPAP -Cont Candidal intertrigo 06/16/2013 Chronic diastolic heart failure (HCC) 12/25/2015 Last Assessment & Plan: Heart failure of preserved EF- recent DVT/PE/Cellulitis/ morbid o besity Pickwickian syndrome Recent admission to [facility] for 100lb weight gain- DC on diuresis [...] w Diabetes mellitus type 2 without retinopathy ([facility]) 04/14/2013 Diabetes mellitus with insulin therapy ([facility]) 12/27/2014 DM (diabetes mellitus) ([facility]) 05/09/2016 Overview: A1c 5.29 Aug [...] with morbid obesity, she is enrolled in th e [facility] bariatric program. She has lost approximately 50 [...] obesity (HCC) 06/16/2013 Last Assessment & Plan: [facility] Bariatric Program, has lost 50lbs. STEFANO (iron deficiency anemia) 02/03/2019 Overview: Presumed due to menses. Venofer 200 qd x 30 October 2015 [facility] Last Assessment & P sharon: Hgb appears [...] Diagnosis: RUE DVT Post OP Diagnosis: Same Tea Bag Packer: Christian Dawson MD/PhD Anesthesia Type: No sedation [...] | 2019 | Office | | [address] | | | | Visit | | [address] | | | | | | [place] [address] | | | | | | [phone] | | | | | | | | +--------+ + + + + | 03/29/ | Office | Cardiology | Sulema Altamirano | | | 2019 | Visit | | [address] | | | | | | [address] | | | | | | [place] [address] | | | | | | [phone] | | | | | | | [...]
--- OUTSIDE RECORDS SUMMARY | ~2020-02-27 | XMS | Encounter Summary ---
Demographics + + + | Address | [address] | | | [place] [address] | + + + | Home Phone [...] [place], [place] | | | | | [address] | | + + + + + | Ellie Vang | ECON | Unknown | | + + + + + Care Team Providers + +------+ + | Care Cold Work Operator Name | Role | Phone | [...] | | | | | | [place], [place] | | | | | | [address] | | | | | | [phone] | | | +--------+ + + + [...] [address] | | | | | | [place], [place] | | | | | | [address] | | | | | | [phone] | | | | | | | | +--------+ + + + + | 04/04/ | Telephone-S | Surgery | Orquidea Cristobal, | | | 2020 | sherrill | | MUSICAL INSTRUMENT MAKER [address] | | | | | | [place] | | | | | | [address] | | | | | | [phone] | | | | | | | | +--------+ + + + + documented as of this encounter Visit Diagnoses Not on filedocumented in this encounter"
--- OUTSIDE RECORDS SUMMARY | ~2020-02-27 | XMS | Encounter Summary ---
Demographics + + + | Address | [address] | | | [place] [address] | + + + | Home Phone [...] [place], [place] | | | | | [address] | | + + + + + | Ellie Vang | ECON | Unknown | | + + + + + Care Team Providers + +------+ + | Care Energy Conservation Director Name | Role | Phone | + +------+ + | Fadi Goodrihc DO | PCP | | + +------+ + Encounter Details +--------+ + + + + | Date | Type | Department | Care Team | Description | +--------+ + + + + | 08/16/ | Abstract | Digestive Health | Kathy Feldman, | | | 2013 | | Center at [facility] [address] | INTERNET NETWORK SPECIALIST [address] | | | | | [address] [facility] | [facility] [address] | | | | | for Health and | [place], [place] | | | | | [facility] | [address] | | | | | [place], [place] | [phone] | | | | | [address] | | | | | | [phone] | | | +--------+ + + + [...] [place] | | | | | | [address] | | | | | | [phone] | | | | | | | | +--------+ + + + + | 04/04/ | Telephone-S | Surgery | Orquidea Cristobal, | | | 2019 | sherrill | | ERP ANALYST [address] | | | | | | [place], [place] | | | | | | [address] | | | | | | [phone] | | | | | | | | +--------+ + + + + documented as of this encounter Visit Diagnoses Not on filedocumented in this encounter"
--- OUTSIDE RECORDS SUMMARY | ~2020-02-27 | XMS | Encounter Summary ---
Demographics + + + | Address | [address] | | | [place] [address] | + + + | Home Phone [...] [place], [place] | | | | | [address] | | + + + + + | Ellie Vang | ECON | Unknown | | + + + + + Care Team Providers + +------+ + | Care Streetcar Dispatcher Name | Role | Phone | [...] 2014 | | Center at [facility] [address] | [address] | (11/03 and 11/06 phone | | | | [address] [facility] | Lesly Gutiérrez [place], | calls) | | | | for Health and | [place] [address] | | | | | [place] [address] | [phone] | | | | | [place], [place] | | | | | | [address] | | | | | | [phone] | | | +--------+ + + + [...] Ave | | | | | | [place], [place] | | | | | | [address] | | | | | | [phone] | | | | | | | | +--------+ + + + + | 04/04/ | Telephone-S | Surgery | Orquidea Cristobal, | | | 2019 | cheduled | | LEGAL MEDIATOR [address] | | | | | | [place], [place] | | | | | | [address] | | | | | | [phone] | | | | | | | | +--------+ + + + + documented as of this encounter Visit Diagnoses Not on filedocumented in this encounter"
--- OUTSIDE RECORDS SUMMARY | ~2020-02-27 | XMS | Encounter Summary ---
Demographics + + + | Address | [address] | | | [place] [address] | + + + | Home Phone [...] [place], [place] | | | | | [address] | | + + + + + [...] PRINCE Herminio | | | | | [place], [place] | [address] | | | [birth year] | | [address] | [place], [place] | | | 2014 | | [phone] | [address] | | | | | | [phone] | | | | | | | [...] port site who was transferre d to [facility] for concern of an [...] mouth once daily. , Historical Med CALCIUM CRB&IQY-M3-HZM31-GENIS ORAL Take 1 tablet by mouth two [...] 10:40 AM Randell Franks Cardiology Preventive at [facility] [phone] Cardiology 04/09/2015 1:00 PM Egs Ppv Tra Trauma Emergency General Surgery at [facility] [phone] [facility] Outstanding labs/studies: None Discharging Physician: GABO LANGSTON MD Attending Physician: Dr. Cantu PCP: Fadi Goodrich DO Signed: GABO LANGSTON MD Pager #[phone] Surgical Pot Lining Supervisor [facility] Associated attestation - Tye Carrillo DO - 03/12/2015 9:12 AM PDTAttending: I discussed this patient with the resident and agree with the assessment and plan as outlin ed in this note and participated in the planning of care. Tye Carrillo DO, MBA, FACS Division of Trauma, Critical Care & Acute Care Surgery [facility] [phone] documented in this encounter Medications at Time of Discharge + + + +---------+--------+ + | Medication | Sig | Dispensed | Refills | Start | End Date | | | | | | Date | | + + + +---------+--------+ + | CALCIUM | Take 2 tablets by | | 0 | | | | CRB&BZG-C7-YKI02-GEN | mouth two times | | | [...] might be differ ent from the original. [facility] DEPARTMENT OF SURGERY EMERGENCY GENERAL SURGERY Division [...] obesity with known ventral hernias transferred to [facility] for surgical managem ent of ventral hernia, now s/p repair. Post surgical pain: -patient ready for d/c, discussed f/u. Patient lives far away and has other appointments at [facility]. Will attempt to coordinate appointments. Discharge Plan: D/c today GABO LANGSTON MD Pager #[phone] Surgical Pot Lining Supervisor [facility] Salomón William Md - 03/02/2015 1:12 PM PDT [facility] DEPARTMENT OF SURGERY EMERGENCY GENERAL SURGERY Division of Trauma and Critical Care Attending Physician: Shahid Cantu MD Progress Note Note Date: 03/02/2015 Admission Date: 2015 DYLAN ROMERO, Hospital Day #2 40 F PMH morbid obesity (BMI 71 today), DM2, depression, GERD, h/o stroke at age 18, and kn own ventral hernias transferred to [facility] for surgical treatment of [...] obesity with known ventral hernias transferred to [facility] for surgical managem ent [...] will be robel ing her home to [place], [place]. CALVIN ROMERO MD PGY-1 Anesthesiology Pager: [phone] [facility] A [address] [facility] [phone] arthik Gonzalez MD - 03/02/2015 8:26 AM [id number] Calvin William Md - 03/01/2015 5:34 PM PDT Brief Post Operative Note: 40 F PMH morbid obesity (BMI 71 today), DM2, depression, GERD, h/o stroke at age 18, and kn own ventral hernias transferred to [facility] for surgical treatment of [...] control CALVIN ROMERO MD PGY-1 Anesthesiology Pager: [phone] signed by Calvin Romero Md at 03/01/2015 [...] Ave | | | | | | [place], [place] | | | | | | [address] | | | | | | [phone] | | | | | | | | +--------+ + + + + | 04/04/ | Telephone-S | Surgery | Orquidea Cristobal, | | | 2019 | cheduled | | WOOL HAT SANDING MACHINE OPERATOR [address] | | | | | | [facility], [place] | | | | | | [address] | | | | | | [phone] | | | | | | | [...] | | Attending Surgeon: Shahid Cantu MD Hardwood Floor Installer(s): Howie Angeles MD, R5 | | [...] 03/02/2015 08:25:39DT: 03/02/2015 09:15:57Job #: | | [id number] | | | |Dr. Chris Cantu was present and scrubbed for the entirety of the case. | | | | | | | |Karthik Gonzalez MD | | | |Pursuant to federal Medicare and Medicaid regulations I was present for the entire procedur e. | | | | | | | |Shahid Cantu MD | |[facility] [place] | |Trauma, Critical Care & Acute Care Surgery | | | | | | | |Shahid Cantu MD | |TBK/MODL | | | | | | /[id number] | + ---+ CAPILLARY BLOOD GLUCOSE (NO [...] YAKOVAM | [address] | [place], [place] | | | [facility] CARE | [address] | [address] | | | TESTS | | | [...] MARQUAM | [address] | [place], [place] | | | [facility] | [address] | [address] | | | TESTS | | | [...] AMES | [address] | [place], [place] | | | [facility] | [address] | [address] | | | TESTS | | | [...] MARPATAM | [address] | [place], [place] | | | [facility] OF JAKY | [address] | [address] | | | TESTS | | | [...] - MARQUAM | [address] | [place], [place] | | | [facility]ARE | [address] | [address] | | | TESTS | | | [...] AMES | [address] | [place], [place] | | | [facility]INT OF CARE | [address] | [address] | | | TESTS | | | [...] LABORATORY | [address] | [place] [address] | | | SERVICES, CORE | PARK [...] | | | LABORATORY | | | SCOTTISH | | | SERVICES, | | | [...] + + | [facility] | [address] | [place] [address] | | | SERVICES, CORE | PARK [...] - MARQUAM | [address] | [place], [place] | | | [facility]INT OF CARE | [address] | [address] | | | TESTS | | | [...] + + + | NKECHI AMES | [address] | [place], [place] | | | [facility] POINT OF CARE | [address] | [address] | | | TESTS | | | [...] MARQUAM | [address] | [place], [place] | | | [facility]WN OF CARE | [facility] | [address] | | | TESTS | | | [...] - MARQUAM | [address] | [place], [place] | | | [facility] POINT OF CARE | [address] | [address] | | | TESTS | | | [...] + + + | NKECHI AEMS | [address] | [place], [place] | | | [facility] POINT OF CARE | [address] | [address] | | | TESTS | | | [...] + + | [facility] | [address] | [place] [address] | | | SERVICES, CORE | CLARENCE [...] (H) | 60 - 99 mg/dL | [facility] - | | | [...] AMES | [address] | [place], [place] | | | [facility]WN OF CARE | [address] | [address] | | | TESTS | | | [...] | | | | | dose on [facility] 03/01/15 at 0900, Until | | AM [...] | | | (DIURETIC), First dose on Jasmnye | | AM PDT | | | [...]
--- OUTSIDE RECORDS SUMMARY | ~2020-02-27 | XMS | Encounter Summary ---
Demographics + + + | Address | [address] | | | [place] [address] | + + + | Home Phone [...] [place], [place] | | | | | [address] | | + + + + + | Ellie Vang | ECON | Unknown | | + + + + + Care Team Providers + +------+ + | Care Logistics Account Manager Name | Role | Phone [...] [place] | | | | | | [address] | | | | | | [phone] | | | | | | | | +--------+ + + + + | 04/04/ | Telephone-S | Surgery | Orquidea Cristobal, | | | 2019 | cheduled | | [place] MANAGER [address] | | | | | | [place], [place] | | | | | | [address] | | | | | | [phone] | | | | | | | | +--------+ + + + + documented as of this encounter Visit Diagnoses Not on filedocumented in this encounter"
--- OUTSIDE RECORDS SUMMARY | ~2020-02-27 | XMS | Encounter Summary ---
Demographics + + + | Address | [address] | | | [place] [address] | + + + | Home Phone [...] Providers + +------+ + | Care Pediatric Medical Assistant Name | Role | Phone | + +------+ + PCP | Unavailable | + +------+ + Encounter Details +--------+ + + + + | Date | Type | Department | Care Team | Description | +--------+ + + + + | 11/04/ | Orders Only | [facility] | Conversion | | | 2017 | | NEPHROLOGY [place] | Transaction, | | | | | [address] | Provider Unknown | | | | | [address] [place], [place] | | | | | | [address] | (Fax) | | | | | [phone] | | | +--------+ + + + [...] D | | | | | | [place] [address] | | | | | | [phone] | | | | | | | | +--------+ + + + + | 03/29/ | Office | Cardiology | Sulema Altamirano | | | 2019 | Visit | | [address] | | | | | | [address] | | | | | | [place] [address] | | | | | | [phone] | | | | | | | [...]
--- OUTSIDE RECORDS SUMMARY | ~2020-02-27 | XMS | Encounter Summary ---
Demographics + + + | Address | [address] | | | [place] [address] | + + + | Home Phone [...] [place], [place] | | | | | [address] | | + + + + + | Ellie Vang | ECON | Unknown | | + + + + + Care Team Providers + +------+ + | Care Manager Global Name | Role | Phone | + [...] | Tiny, | | | | | [place] EST | Fadi Person DO | MD Randell | | | | | PATIENT | [address] | [address] | | | | | [address] | Ave | | | | | | [place], | [place], [place] | | | | | | [place] [address] | [address] | | | | | | Phone: | Phone: | | | | | | [phone] | [phone] | | | | | | Fax: | Fax: | | | | | | [phone] | [phone] | +--------+--------+ + + + + Encounter Details +--------+---------+ + + + | Date | Type | Department | Care Team | Description | +--------+---------+ + + + | 04/03/ | Office | Cardiology | Randell Franks, | Morbid obesity (HCC) | | 2014 | Visit | Preventive at [facility] | [address] | (Primary Dx); Type | | | | [address] | [place], [place] | 2 diabetes mellitus | | | | [facility] | [address] | without complication | | | | and Healing, | [phone] | ([facility]) | | | | [address] | | | | | | [place], [place] | | | | | | [address] | | | | | | [phone] | | | +--------+---------+ + + + [...] 500 mg by mouth once daily. CALCIUM CRB&TCQ-P1-AAU48-GENIS ORAL Take 1 tablet by mouth two [...] She is working with the bariatric surgery lens grinder to try to achieve this. She states [...] visit Diet: healthy, working with Bar Surg lens grinder Exercise: "I walk everywhere." ROS: No CP, [...] [address] | | | | | | [place], [place] | | | | | | [address] | | | | | | [phone] | | | | | | | | +--------+ + + + + | 04/04/ | Telephone-S | Surgery | Orquidea Cristobal, | | | 2019 | cheduhipolito | | SAP FICO BUSINESS ANALYST [address] | | | | | | [place], [place] | | | | | | [address] | | | | | | [phone] | | | | | | | | +--------+ + + + + documented as of this encounter Visit Diagnoses + + | Diagnosis | + + | Morbid obesity (HCC) - Primary Morbid obesity | + + | Type 2 diabetes mellitus without complication (HCC) | + + documented in this encounter
--- OUTSIDE RECORDS SUMMARY | ~2020-02-27 | XMS | Encounter Summary ---
Demographics + + + | Address | [address] | | | [place] [address] | + + + | Home Phone | | + + + | Preferred Language | Unknown | + + + | Marital Status | | + + + | Christian Affiliation | Unknown | + + + | Race | Unknown | + + + | Ethnic Group | Unknown | + + + Author + + + | Author | [facility] | | | and [place] | + + + | Organization | [facility] | | | [...] Providers + +------+ + | Care Account Support Associate Name | Role | Phone | + +------+ + PCP | Unavailable | + +------+ + Encounter Details +--------+ + + + + | Date | Type | Department | Care Team | Description | +--------+ + + + + | 03/31/ | Orders Only | [facility] | Dharmesh Escobar, | | | 2016 | | NEPHROLOGY [place] | SENIOR BENEFITS MANAGER [address] | | | | [address] | [address] | | | | | [address] [place], [place] | [place], [place] | | | | | [address] | [address] | | | | | [phone] | [phone] | | | | | | | [...] | | | | | | [place] [address] | | | | | | [phone] | | | | | | | | +--------+ + + + + | 03/29/ | Office | Cardiology | Sulema Altamirano | | | 2019 | Visit | | [address] | | | | | | [address] | | | | | | [place] [address] | | | | | | [phone] | | | | | | | [...] | | | LAB | | | Faroese | | | | | + +---------+ [...]
--- OUTSIDE RECORDS SUMMARY | ~2020-02-27 | XMS | Encounter Summary ---
Demographics + + + | Address | [address] | | | [place] [address] | + + + | Home Phone [...] [place], [place] | | | | | [address] | | + + + + + | Ellie Vang | ECON | Unknown | | + + + + + Care Team Providers + +------+ + | Care Clinical Trials Data Coordinator Name | Role | Phone | [...] floor | | | | | | [place], [place] | | | | | | [address] | | | +--------+ + + + [...] Ave | | | | | | [place], [place] | | | | | | [address] | | | | | | [phone] | | | | | | | | +--------+ + + + + | 04/04/ | Telephone-S | Surgery | Orquidea Cristobal, | | | 2019 | cheduled | | CHIEF WELLNESS OFFICER [address] | | | | | | [place], [place] | | | | | | [address] | | | | | | [phone] | | | | | | | | +--------+ + + + + documented as of this encounter Visit Diagnoses Not on filedocumented in this encounter"
--- OUTSIDE RECORDS SUMMARY | ~2020-02-27 | XMS | Encounter Summary ---
Demographics + + + | Address | [address] | | | [place] [address] | + + + | Home Phone [...] Organization | [facility] | | | and [place] | + [...] + +------+ + | Care Intensive Care Specialist Name | Role | Phone [...] + + | 02/14/ | Telephone | [facility] | Gerard, | Other | | 2020 | | NEUROLOGY [address] | [address] | (Documentation) | | | | [address] | | | | | | [place] | | | | | | [address] | | | | | | [phone] | | | +--------+ + + + [...] 02/15/2020 10:39 AM PDTDodamon in other encounter. domerritt han in this encounter Plan of Treatment [...] | | | | | [place] [address] | | | | | | [phone] | | | | | | | | +--------+ + + + + | 03/29/ | Office | Cardiology | Sulema Altamirano | | | 2019 | Visit | | [address] | | | | | | [address] | | | | | | [place] [address] | | | | | | [phone] | | | | | | | | +--------+ + + + + documented as of this encounter Visit Diagnoses Not on filedocumented in this encounter"
--- OUTSIDE RECORDS SUMMARY | ~2020-02-27 | XMS | Encounter Summary ---
Demographics + + + | Address | [address] | | | [place] [address] | + + + | Home Phone [...] [place], [place] | | | | | [address] | | + + + + + | Ellie Vang | ECON | Unknown | | + + + + + Care Team Providers + +------+ + | Care Digital Print Operator Name | Role | Phone | [...] + + | 05/13/ | Emergency | [facility] Emergency | Nay Joe | | | 2019 - | | Department [address] MD [address] | | | | | [address] | [address] | | | 05/14/ | | [facility] | [place], [place] | | | 2019 | | [place], [place] | [address] | | | | | [address] | [phone] | | | | | [phone] | | | +--------+ + + + [...] by mouth once daily at bedtime. CALCIUM [id number]-GENIS ORAL Take 2 tablets by mouth two [...] passing gas, please go directly to [facility] to be evaluated. Pain Medications: [...] the prescribed narcotic-opioid (e.g. oxycodone, hydrocodone, Vicodin, [place], Percoce t, Dilaudid) as needed. Opioid pain medications may cause constipation, so be sure to take a stool softener if you take an opioid pain medication. FOLLOW-UP: Follow-up with your primary care provider for pain control. Dr. Tiwari's medical scheduler will contact you to try to find a date for surgery. Follow Up: Future Appointments Provider Department Dept Phone Center 06/27/2019 11:55 AM [facility] PHONE/RN CLIN 3 Preoperative Medicine Clinic at [place] [address] [phone] [facility] 06/30/2019 11:30 AM Aly Franks Cardiology in [facility] [phone] Cardiology Schedule the following appointment(s) when you get home JONES TIWARI MD. Specialty: General Surgery Why: Dr. Tiwari's medical scheduler will call you to schedule a surgery date. Contact information [address] [place] [address] [place] [address] Kenyatta Hylton MD. Specialty: Family [...] oriented. Grossly intact. Anisa Christopher MD PhD [facility] General Surgery ATTENDING PHYSICIAN STATEMENT I saw the patient and have repeated the pertinent portions of the history and physical exam . I agree with the findings, assessment and plan as documented by the resident. Johana Holloway MD Division of Gastrointestinal and General Surgery [facility] [address] [place] [address] Office: [phone] documented in this e ncounter Discharge Instructions [...] surgery date up as possible and the medical scheduler will contact you. Elec tronically signed [...] passing gas, please go directly to the [facility] department to be evaluated. Pain Medications: [...] the prescribed narcotic-opioid (e.g. oxycodone, hydrocodone, Vicodin, [place], Percoce t, Dilaudid) as needed. Opioid pain medications may cause constipation, so be sure to take a stool softener if you take an opioid pain medication. FOLLOW-UP: Follow-up with your primary care provider for pain control. Dr. Tiwari's medical scheduler will contact you to try to [...] | | 0 | | | | [id number] | mouth two times | | | [...] Ave | | | | | | [place], [place] | | | | | | [address] | | | | | | [phone] | | | | | | | | +--------+ + + + + | 04/04/ | Telephone-S | Surgery | Orquidea Cristobal, | | | 2019 | cheduled | | RN STAFF [address] | | | | | | [place], [place] | | | | | | [address] | | | | | | [phone] | | | | | | | [...] + + + | NKECHI AMES | [address] | [place], [place] | | | JUSTINE DAWN OF JAKY | [address] | [address] | | | TESTS | | | [...] [facility] | [address] | [place] [address] | | | SERVICES, CORE | CLARENCE [...] MDRD equation recommended by the National | [facility] | | Kidney Disease Education [...] [facility] | [address] | [place] [address] | | | SERVICES, CORE | CLARENCE [...] [facility]AL [facility] | [address] | [place] [address] | | | SERVICES, CORE | PARK [...] 5-6 weeks | | | 850 - 26452 6-7 weeks | | | 4000 - 503482 7-12 weeks | | | 33419 - 056860 12-16 weeks | | | 10167 - 618183 16-29 | | | weeks 1400 - 86467 | | | 29-41 weeks 940 - 88139 | | | This test has not been approved for use as a tumor marker in | | | males or females. | | + + + + + + + + | Performing | Address | City/State/Zipcode | Phone Number | | Organization | | | | + + + + + | [facility] | [address] | [place] [address] | | | SERVICES, CORE | CLARENCE [...] LABORATORY | [address] | [place] [address] | | | SERVICES, CORE | CLARENCE [...] MDRD equation recommended by the National | [facility] | | Kidney Disease Education [...] + | [facility] | [address] [facility] | [place] [address] | | | SERVICES, LYDIA | [address] | | | + + + + + ED INFORMATION EXCHANGE (05/13/2019 5:14 PM PDT) + + | Specimen | + + | | + + + + + | Narrative | Performed At | + + + | COLLECTIVE?NOTIFICATION?05/13/2019 17:13?DYLAN ROMERO?MRN: | [facility] | | [id number] Criteria Met Has Guidelines PDMP Security | MEDICAL | | and Safety No recent Security Events currently on file ED Care | [employer] | | Guidelines from [facility] Last Updated: 12/06/18 9:53 AM | | | Care Coordination: Receiving mental health services with | | | [facility].? Please contact [employer] for mental health concerns.? | | | Sarah/Toni Centeno: [phone]? Kishan: [phone].? | | | These are guidelines and the provider should exercise clinical | | | judgment when providing care. Care History Medical/Surgical | | | 05/11/19 12:00 AM [facility] Patient is | | | currently established with [facility]. If patient is seen in | | | the ED during business hours. Please contact [facility] at [facility] | | | Clinic. 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 Recent Emergency Department Visit Summary Date | | | Facility City State Type Diagnoses or Chief Complaint May 13, 2019 | | | [facility] [place] Emergency | | | 10,800. A303 May 10, 2019 [facility] [place] | | | Emergency Nausea with vomiting, unspecified Solitary | | | pulmonary nodule Anxiety disorder, unspecified Ventral | | | hernia without obstruction or gangrene Unspecified abdominal | | | pain Diarrhea, unspecified Allergy status to oth | | | drug/meds/biol subst status Prsnl hx of TIA (TIA), and cereb | | | infrc w/o resid deficits Other tank terminal gauger (current) drug therapy | | | Allergy status to penicillin December 03, 2018 [facility] | | | [facility] [place] Emergency RIGHT LEG PAIN DUE TO FALL | | | Strain of unsp musc/tend at lower leg level, right leg, init Jul | | | 2018 [facility] [place] Emergency Other tank terminal gauger | | | (current) drug therapy Upper abdominal pain, unspecified | | | Bariatric surgery status Allergy status to oth drug/meds/biol | | | subst status Noninfective gastroenteritis and colitis, | | | unspecified Obesity, unspecified Anxiety disorder, | | | unspecified tank terminal gauger (current) use of aspirin Allergy | | | status to penicillin Personal history of pulmonary embolism | | | Recent Inpatient Visit Summary No recorded inpatient visits. | | | Care Team Provider Specialty Phone Fax Service Dates Treva, | | | Rob Scale Agent/Pilot Safety Inspector Mar 27, 2018 - | | | Current Bernard Hylton MD Internal Medicine: Pulmonary Disease | | | Aug 23, 2018 - Current [employer] Portal This patient has | | | registered at the [facility] [place] Emergency | | | Department For more information visit: | | | [email or web address] | | | [email or web address] PLEASE NOTE: 1. Any care recommendations [...] or completeness of information provided. ? 2019 [employer] | | | Medical [employer]ments [employer] [place] - [email or web address] | | + + + + + | Procedure Note | + + | Service Account, Rtf Results Inbound - 05/13/2019 5:16 PM PDT Formatting of this | | note might be different from the original.COLLECTIVE?NOTIFICATION?05/13/2019 | | 17:13?DYLAN ROMERO? Met Has Guidelines PDMPSecurity and | | SafetyNo recent Security Events currently on fileED Care Guidelines from [facility] - | | [place] Updated: 12/06/18 9:53 AM Care Coordination:Receiving mental health | | services with [facility].? Please contact [employer] for mental health concerns.? | | Sarah/Toni Centeno: [phone]? Kishan: [phone].?These are guidelines | | and the provider should exercise clinical judgment when providing care.Care | | HistoryMedical/[place]08/16/19 12:00 AM [facility] Patient is currently | | [...] judgment when providing care.08/23/18 12:00 AM [facility] | | Hospital PATIENT HAS [...] MG TABLET 30 | | BERNARDODAHLIA MARTIN, HEARING IMPAIRED TEACHER 0 2019-03-20 ALPRAZOLAM 1 MG TABLET 60 WINSTON JOSE 4 0 2019-03-14 | | BELBUCA 600 MCG FILM 58 KECIA ZAPIEN PA 0 2019 PHENTERMINE 37.5 MG TABLET 90 | | ALY FRANKS MD 4 0 2019-02-21 ALPRAZOLAM 1 MG TABLET 60 WINSTON JOSE 4 0 2019-02-11 | | BELBUCA 600 MCG FILM 56 SUN[facility] COLINDRES [facility] 0 2019-01-31 PHENTERMINE 37.5 MG TABLET | [...] 0 E.D. Visit Count (12 mo.)Facility Visits [facility] | | Health 1 [facility] 1 [facility] 2 Total 4 Note: | | Visits indicate total known visits. Recent Emergency Department Visit SummaryDate | | Facility City State Type Diagnoses or Chief Complaint May 13, 2019 [facility] | | [facility] [place] Emergency 10,800. A303 May 10, 2019 [facility] | | [place] Emergency Nausea [...] to penicillin December 03, 2018 | | [facility] [place] Emergency RIGHT LEG PAIN DUE TO FALL Strain of | | unsp musc/tend at lower leg level, right leg, init Aug 22, 2018 [facility] | | [place] Emergency Other tank terminal gauger (current) drug therapy Upper abdominal pain, | | unspecified Bariatric surgery status Allergy status to oth drug/meds/biol subst | | status Noninfective gastroenteritis and colitis, unspecified Obesity, unspecified | | Anxiety disorder, unspecified senior living (current) use of aspirin Allergy status | | to penicillin Personal history of pulmonary embolism Recent Inpatient Visit | | SummaryNo recorded inpatient visits. Care TeamProvider Specialty Phone Fax Service Dates | | Rob Tilley Scale Agent/Pilot Safety Inspector Mar 27, 2018 - Current | | Bernard Hylton MD Internal Medicine: Pulmonary Disease Aug 23, 2018 - Current | | [employer] [place] patient has registered at the [facility] [place] | | Emergency Department For more information visit: | | [email or web address] PLEASE | | NOTE: 1. Any care [...] completeness of information | | provided.? 2019 [employer]. - [email or web address] | |[facility] 3 | |Benzos 4 | |Opioids 7 | |Long Acting Opioids 0 | | | | | | | |E.D. Visit Count (12 mo.) | |Facility Visits | |[facility] 1 | |[facility] 1 | |[facility] 2 | |Total 4 | |Note: Visits indicate total known visits. | | | |Recent Emergency Department Visit Summary | |Date Facility City State Type Diagnoses or Chief Complaint | |May 13, 2019 [facility] [place] Emergency | | 10,800. A303 | | | |May 10, 2019 [facility] [place] Emergency | | Nausea [...] terminal gauger (current) drug therapy | | Allergy status to penicillin | | | |December 03, 2018 [facility] [place] Emergency | | RIGHT LEG PAIN DUE TO FALL | | Strain of unsp musc/tend at lower leg level, right leg, init | | | |Aug 22, 2018 [facility]. [place] Emergency | | Other mcc (current) drug therapy | | Upper abdominal pain, unspecified | | Bariatric surgery status | | Allergy status to oth drug/meds/biol subst status | | Noninfective gastroenteritis and colitis, unspecified | | Obesity, unspecified | | Anxiety disorder, unspecified | | senior living (current) use of aspirin | | Allergy status to penicillin | | Personal history of pulmonary embolism | | | | | | | |Recent Inpatient Visit Summary | |No recorded inpatient visits. | | | |Care Team | |Provider Specialty Phone Fax Service Dates | |Rob Tilley Scale Agent/Pilot Safety Inspector Mar 27, 2018 - Current | |Bernard Hylton MD Internal Medicine: Pulmonary Disease Aug 23, 2018 - Current | | | |[employer] Portal | |This patient has registered at the [facility] Emergency Departmen t | |For more information visit: [email or web address] | |PLEASE NOTE: | | 1. Any [...] information provided. | | | |? 2019 [employer]. - [email or web address] | + + + + + + + | Performing | Address | City/State/Zipcode | Phone Number | | Organization | | | | + + + + + | [facility] | [address] | [place], [place] | [phone] | | [employer] | [address] | [address] | | + + + + + [...] | | | | ONCE, 1 dose, [facility] 05/13/19 at | | PM PDT | [...]
--- OUTSIDE RECORDS SUMMARY | ~2020-02-27 | XMS | Encounter Summary ---
Demographics + + + | Address | [address] | | | [place] [address] | + + + | Home Phone [...] [place], [place] | | | | | [address] | | + + + + + | Ellie Vang | ECON | Unknown | | + + + + + Care Team Providers + +------+ + | Care Sales Development Consultant Name | Role | Phone [...] 2019 | | Preventive at [facility] | MD [address] | (PHENTERMINE 37.5 mg | | | | [address] | [place], [place] | oral tablet); | | | | [facility] | [address] | Refill Request | | | | and Healing, | [phone] | | | | | [place] [address] | | | | | | [place], [place] | | | | | | [address] | | | | | | [phone] | | | +--------+--------+ + + + [...] Ave | | | | | | [place], [place] | | | | | | [address] | | | | | | [phone] | | | | | | | | +--------+ + + + + | 04/04/ | Telephone-S | Surgery | Orquidea Cristobal, | | | 2019 | cheduhipolito | | LPN HOME HE[facility] [address] | | | | | | [place], [place] | | | | | | [address] | | | | | | [phone] | | | | | | | | +--------+ + + + + documented as of this encounter Visit Diagnoses Not on filedocumented in this encounter"
--- OUTSIDE RECORDS SUMMARY | ~2020-02-27 | XMS | Encounter Summary ---
Demographics + + + | Address | [address] | | | [place] [address] | + + + | Home Phone [...] + | aKtalina Padilla | ECON | [address] | | | | | [place], [place] | | | | | [address] | | + + + + + | Ellei Vang | ECON | Unknown | | + + + + + Care Team Providers + +------+ + | Care Customs Guard Name | Role | Phone | [...] 2013 | | Center at [facility] [address] | TABLET MACHINE OPERATOR [address] | | | | | [address] [facility] | [facility] [address] | | | | | for Health and | [place], [place] | | | | | [facility] 2 | [address] | | | | | [place], [place] | [phone] | | | | | [address] | | | | | | [phone] | | | +--------+ + + + [...] Ave | | | | | | [place], [place] | | | | | | [address] | | | | | | [phone] | | | | | | | | +--------+ + + + + | 04/04/ | Telephone-S | Surgery | Orquidea Cristobal, | | | 2019 | sherrill | | [facility] [address] | | | | | | [place], [place] | | | | | | [address] | | | | | | [phone] | | | | | | | | +--------+ + + + + documented as of this encounter Visit Diagnoses Not on filedocumented in this encounter"
--- OUTSIDE RECORDS SUMMARY | ~2020-02-27 | XMS | Encounter Summary ---
Demographics + + + | Address | [address] | | | [place] [address] | + + + | Home Phone [...] [place], [place] | | | | | [address] | | + + + + + [...] Surgery | | | 2018 | | [place] [facility] [address] | | | | | | [address] [facility] | | | | | | for Health and | | | | | | [facility] 2 | | | | | | [place], [place] | | | | | | [address] | | | | | | [phone] | | | +--------+ + + + [...] Ave | | | | | | [place], [place] | | | | | | [address] | | | | | | [phone] | | | | | | | | +--------+ + + + + | 04/04/ | Telephone-S | Surgery | Orquidea Cristobal, | | | 2019 | cheduled | | RESERVE OFFICER [address] | | | | | | [facility] [place] | | | | | | [address] | | | | | | [phone] | | | | | | | | +--------+ + + + + documented as of this encounter Visit Diagnoses Not on filedocumented in this encounter"
--- OUTSIDE RECORDS SUMMARY | ~2020-02-27 | XMS | Encounter Summary ---
Demographics + + + | Address | [address] | | | [place] [address] | + + + | Home Phone [...] [place], [place] | | | | | [address] | | + + + + + | Ellie Vang | ECON | Unknown | | + + + + + Care Team Providers + +------+ + | Care Structural Steel Equipment Erector Name | Role | Phone | + [...] | BROCK Roldan | | | with [employer] | | hypertension | [address] | | | | | Right | [address] | [place] | | | | | heart | [place], [place] | [place], | | | | | failure | [address] | [place] | | | | | ([facility]) Type | Phone: | [address] | | | | | 2 diabetes | [phone] | Phone: | | | | | mellitus | Fax: | [phone] | | | | | without | [phone] | Fax: | | | | | complication | | [phone] | | | | | , with | | | | | | | long-term | | | | | | | current use | | | | | | | of insulin | | | | | | | ([facility]) | | | +--------+ + + + + + Encounter Details +--------+---------+ + + + | Date | Type | Department | Care Team | Description | +--------+---------+ + + + | 02/02/ | Office | Digestive Health | [address] | Morbid obesity with | | 2017 | Visit | Center at [facility] [address] | [address] | BMI of 70 and over, | | | | [facility] | Lesly Gutiérrez [place], | adult ([facility]) (Primary | | | | for Health and | [place] [address] | Dx); Type 2 | | | | Healing, [facility] [address] | [phone]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 | | | | [place], [place] | | without | | | | [address] | | complication, with | | | | [phone] | | long-term current | | | | | | use of insulin | | | | | | ([facility]); Chronic | | | | | | diastolic heart | | | | | | failure ([facility]) | +--------+---------+ + + + Social History [...] of Visit: 10:03 to 10:30 (27 minutes zexv-mc-yoip with patient) (1 hour ap point not [...] eat like she should, tries to eat mechanical maintenance instructor things and this does not help. Food [...] post-surgery diet progression. 4. Call or send Fanminder message to dietitian with any questions. Contact information was provided. Follow up with dietitian prior to surgery (take 2 Weight management classes as part of 6 mo [facility] supervised diet). Yuli Childs RD, CNSC, LD [facility] Bariatrics [phone] documented in this enco unter Plan of Treatment +--------+ + + + + | Date | Type | Specialty | Care Team | Description | +--------+ + + + + | 03/22/ | Office | Cardiology | Randell Franks, | | | 2019 | Visit | | MD [address] | | | | | | [place], [place] | | | | | | [address] | | | | | | [phone] | | | | | | | | +--------+ + + + + | 04/04/ | Telephone-S | Surgery | Orquidea Cristobal, | | | 2019 | cheduled | | PHP ARCHITECT [address] | | | | | | [place], [place] | | | | | | [address] | | | | | | [phone] | | | | | | | | +--------+ + + + + documented as of this encounter Procedures + +--------+ + + + | Procedure Name | Priori | Date/Time | Associated Diagnosis | Comments | | | ty | | | | + +--------+ + + + | [place] MNT RE-ASSESSMNT | Routin | 02/02/2017 | Morbid obesity | | | X15MIN | e | 12:04 PM | with BMI of 70 and | | | | | PDT | over, adult ([facility]) | | | | | | Type 2 diabetes | | | | | | mellitus without | | | | | | complication, with | | | | | | long-term current | | | | | | use of insulin ([facility]) | | | | | | Chronic diastolic | | | | | | heart failure ([facility]) | | + +--------+ [...]
--- OUTSIDE RECORDS SUMMARY | ~2020-02-27 | XMS | Encounter Summary ---
Demographics + + + | Address | [address] | | | [place] [address] | + + + | Home Phone [...] [place], [place] | | | | | [address] | | + + + + + | Ellie Vang | ECON | Unknown | | + + + + + Care Team Providers + +------+ + | Care Orthopedic Physical Therapist Name | Role | Phone [...] | 2019 | | Preventive at [facility] | MD [address] | (PHENTERMINE 37.5 mg | | | | [address] | [place], [place] | ) | | | | [facility] | [address] | | | | | and [place], | [phone] | | | | | [place] [address] | | | | | | [place], [place] | | | | | | [address] | | | | | | [phone] | | | +--------+--------+ + + + [...] [place] | | | | | | [address] | | | | | | [phone] | | | | | | | | +--------+ + + + + | 04/04/ | Telephone-S | Surgery | Orquidea Cristobal, | | | 2019 | cheduled | | CLASSIFICATION OFFICER [address] | | | | | | [place], [place] | | | | | | [address] | | | | | | [phone] | | | | | | | | +--------+ + + + + documented as of this encounter Visit Diagnoses Not on filedocumented in this encounter"
--- OUTSIDE RECORDS SUMMARY | ~2020-02-27 | XMS | Encounter Summary ---
Demographics + + + | Address | [address] | | | [place] [address] | + + + | Home Phone [...] [place], [place] | | | | | [address] | | + + + + + | Ellie Vang | ECON | Unknown | | + + + + + Care Team Providers + +------+ + | Care Hearing Dog Trainer Name | Role | Phone | [...] ENDOSCOPY | | 2017 | | [facility] | [address] | | | | | [address] [facility] | [place], [place] | | | | | Hospital Admitting | [address] | | | | | Desk Located on the | [phone] | | | | | 9th floor | | | | | | [place], [place] | | | | | | [address] | | | +--------+---------+ + + + [...] the endoscopy department toll free ext. [phone] or After business hours or on weekends and holiday Hospital Cam Milling Machine Operator toll free [phone]. [phone] and have the GI doctor director council on aging paged. The provider who performed your procedure [...] | | 0 | | | | [id number] | mouth two times | | | [...] 2:35 PM PST PRE PROCEDURE NOTE: MR# [id number] Subjective: Elzbieta Cristina is a 43 y.o. [...] [place] | | | | | | [address] | | | | | | [phone] | | | | | | | | +--------+ + + + + | 04/04/ | Telephone-S | Surgery | Orquidea Cristobal, | | | 2019 | cheduled | | RESTUARANT CREW WORKER [address] | | | | | | [place], [place] | | | | | | [address] | | | | | | [phone] | | | | | | | [...] -----+ | MRN: | [facility] | | [id number] Date: 06/23/2018Patient Name: Elzbieta Curtis #: | ENDOSCOP Y | | [id number] of : 1975CSN: [id number] Type: | | | AmbulatoryRoom: SORProcedure: Upper GI | | | endoscopyIndications: Nausea with vomiting, Status post | | | Xbfh-xk-GGcolhebdh: KALEB WILCOX MD (Doctor), JOSE | | | NASIMA, Administration Specialist | | | (Administration Specialist)Referring MD: DANIELLE GARCÍAPRequestdonya | | | [...] | | | The Olympus [id number] Gastroscope #[id number] was | | | introduced through the [...] endoscope without resistance. The | | | zpihv-td-acyfdnt limb was characterized by healthy appearing | [...] Initiated On: | | | 06/23/2018 3:58 [facility] Letter to: FADI MICHAEL DO | | | - Repeat upper endoscopy in 1-2 weeks for repeat | | | dilation if symptoms persist. | | |KLAEB WILCOX MD | | |06/23/2018 5:17:38 PM [...] NKECHI AMES | [address] | [place], [place] | | | [facility] OF [facility] | [address] | [address] | | | TESTS | | | [...] 1532, | | | Until [facility] 06/24/18 at 0027, | | | hypopnea | | + +---+ | | | + +---+ | ondansetron (ZOFRAN) injection | | | 4 mg 4 mg, intravenous, | | | POSTPROCEDURE PRN, 1 dose, | | | Starting [facility] 06/23/18 at 1532, | | | Until [facility] 06/24/18 at 0027, | | | nausea/vomiting [...] | | | PRN, 1 dose, Starting [facility] | | | | | [...]
[~2020-02-27 15:26] MED LIST changes: +CLEOCIN HCL300 MG PO; +NEURONTIN100 MG PO; +VALTREX1000 MG PO; +WARFARIN SODIUM10 MG PO
--- OUTSIDE RECORDS SUMMARY | 2020-02-27 15:30 | XMS ---
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 ROMERO Security Baggage Clerk Events No recent Security Events currently on file CRITERIA MET - Group Notification - 6 ED Visits in 6 Months - [facility] - Has Care Guidelines - PDMP CARE PROVIDERS [facility] Community Health Worker 07/03/2019-Current PHONE: [phone] JONES DAVISON Dentist: Syrup Mixer Helper 05/23/2019-Current PHONE: [phone] Rob Tilley Health Sciences Manager/Dry Can Tender 03/27/2018-Current PHONE: [phone] CONCETTA UPTON Internal Medicine: Pulmonary Disease 08/23/2018-Current PHONE: Unknown Guidelines Source: [facility] [place] Guidelines Date: 09/16/2019 Care Coordination: Receives mental health services with [facility].\T\nbsp; Please contact [facility] regarding mental health concerns. [facility] Office: [phone], [place] Office: [phone].\T\nbsp; [facility]: [phone]. Care History Medical/Surgical 12/13/2019 [facility] - PATIENT HAD AN APT WITH DR DAVISON PCP ON 12/09/19 FOR FOLLOW UP TO ED VISIT. - NEXT APT SCHEDULED FOR PATIENT IS IN FEBRUARY 2020. 09/14/2019 [facility] - PATIENT HAS AN APT WITH DR WEBBER 09/14/19 FOR FOLLOW UP TO RECENT POSTOPERATIVE COMPLICATION. - HERNIA SURGERY WAS DONE ON 08/19/[address] TIWARI AT [facility]. 06/27/2019 [facility] - PATIENT SELF DISCHARGED FROM [facility]-PCP IS NOW DR DAVISON AT [facility]. E.Brynn. VISIT COUNT (12 MO.) 2 [facility] and [facility] 13 [facility] H. TOTAL 15 NOTE: Visits indicate total known visits. ED/UCC VISIT TRACKING (12 MO.) 02/27/2020 15:27 [facility] [place] TYPE: Emergency COMPLAINT: - SOB 12/19/2019 09:57 [facility] [place] TYPE: Emergency COMPLAINT: - EYE PAIN NON INJURY DIAGNOSES: - Zoster ocular disease, 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 - Ocular pain, right eye - Migraine, unspecified, not intractable, without status migrai - Anxiety disorder, unspecified - Other intermediate manager (current) drug therapy - Allergy status to other drugs, medicaments and biological sub - Allergy status to penicillin 12/02/2019 12:02 [facility] [place] TYPE: Emergency COMPLAINT: - STOMACH PAIN,BLOODY STOOL DIAGNOSES: - Anxiety disorder, unspecified - Allergy status to other drugs, medicaments and biological sub - Allergy status to other antibiotic agents status - Other care home (current) drug therapy - Hypokalemia - Constipation, unspecified - Unspecified abdominal pain - Migraine, unspecified, not intractable, without status migrai - group home (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 - Allergy status to penicillin 11/13/2019 17:33 [facility] [place] TYPE: Emergency COMPLAINT: - MULTIPLE COMPLAINTS DIAGNOSES: - Viral infection, unspecified - Cough - Other intermediate manager (current) drug therapy - Anxiety disorder, unspecified - Allergy status to other antibiotic agents status - Allergy status to penicillin - Migraine, unspecified, not intractable, without status migrai 09/12/2019 17:58 [facility] [place] TYPE: Emergency COMPLAINT: - POST OP PAIN DIAGNOSES: - Allergy status to analgesic agent status - Unspecified abdominal pain - Allergy status to penicillin - Other intermediate manager (current) drug therapy - Anxiety disorder, unspecified - Obesity, unspecified - Other postprocedural complications of skin and subcutaneous t - Allergy status to other drugs, medicaments and biological sub 09/08/2019 18:55 [facility] [place] TYPE: Emergency COMPLAINT: - DIFFICULTY BREATHING DIAGNOSES: - Headache - Other care home (current) drug therapy - Personal history of nicotine dependence - Shortness of breath 09/02/2019 21:22 [facility] [place] TYPE: Emergency COMPLAINT: - ABDOMINAL PAIN 08/18/2019 13:47 [facility] TYPE: Emergency DIAGNOSES: [id number]. [facility] [id number]. Morbid (severe) obesity due to excess calories 50140. Ventral hernia without obstruction or gangrene 00623. Unspecified abdominal hernia with obstruction, without gangre 06/25/2019 18:23 [facility] [place] TYPE: Emergency COMPLAINT: - ABDOMINAL PAINY DIAGNOSES: - group home (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 - Anxiety disorder, [...] Emergency COMPLAINT: - ABDOMINAL PAIN/VOMITING DIAGNOSES: - group home (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 - Personal history [...] - Other care home (current) drug therapy 06/01/2019 13:10 [facility] [place] TYPE: Emergency COMPLAINT: - HEADACHE/VISION ISSUES DIAGNOSES: - Allergy status to penicillin - Anxiety disorder, unspecified - Obesity, unspecified - Migraine, unspecified, not intractable, without status migrai - Other intermediate manager (current) drug therapy - Allergy status to other drugs, medicaments and biological sub - terminal gauger supervisor (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 - Headache - group home (current) use of aspirin 05/23/2019 17:08 [facility] [place] TYPE: Emergency COMPLAINT: - BLOOD CLOT IN ARM DIAGNOSES: - Anxiety disorder, unspecified - Acute embolism and thrombosis of deep veins of right upper ex - Allergy status to penicillin - Other care home (current) drug therapy - Pain in right arm - terminal gauger supervisor (current) use of aspirin - Allergy status to other drugs, medicaments and biological sub 05/20/2019 10:19 [facility] TYPE: Emergency COMPLAINT: - ABD PAIN, VOMITING DIAGNOSES: - Generalized abdominal pain - group home (current) use of aspirin - Allergy status to other drugs, medicaments and biological sub - Unspecified abdominal pain - Personal history of transient ischemic attack (TIA), and cere - Anxiety disorder, unspecified - Other intermediate manager (current) drug therapy - Other chronic pain - Allergy status to penicillin 05/13/2019 17:18 [facility] TYPE: Emergency DIAGNOSES: 19133. A303 14174. Bariatric surgery status 95593. Ventral hernia without obstruction or gangrene 37445. Nausea with vomiting, unspecified 07200. Unspecified abdominal pain 38262. Nonspecific mesenteric lymphadenitis 05/10/2019 13:06 [facility] [place] TYPE: Emergency COMPLAINT: - ABD PAIN DIAGNOSES: - Nausea with vomiting, unspecified - Allergy status to other drugs, medicaments and biological sub - Personal history of transient ischemic attack (TIA), and cere - Solitary pulmonary nodule - Other intermediate manager (current) drug therapy - Anxiety disorder, unspecified - Allergy status to penicillin - Ventral hernia without obstruction or gangrene - group home (current) use of aspirin - Unspecified abdominal pain - Diarrhea, unspecified INPATIENT VISIT TRACKING (12 MO.) 09/03/2019 02:24 [facility] [place] TYPE: Medical Surgical COMPLAINT: - POST-OP HEMATOMA DIAGNOSES: - Body mass index (BMI) 50-59.9 , adult - Personal history of pulmonary embolism - group home (current) use of opiate analgesic - Other chronic pain - Allergy status to other drugs, medicaments and biological sub - Anxiety disorder, unspecified - Allergy status to other drugs, medicaments and biological sub - group home (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 - Bipolar disorder, unspecified - Personal history of other venous thrombosis and embolism - Anxiety disorder, unspecified - Other chronic pain - Other care home (current) drug therapy - Postprocedural hematoma of a digestive system organ or struct - Other intermediate manager (current) drug therapy - Personal history of other venous thrombosis and embolism - Bariatric surgery status - Essential (primary) hypertension - Personal history of transient ischemic attack (TIA), and cere - Obstructive sleep apnea (adult) (pediatric) - Personal history of pulmonary embolism - Migraine, unspecified, not intractable, without status migrai - Bipolar disorder, unspecified - group home (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 - Acute posthemorrhagic [...] (severe) obesity due to excess calories - group home (current) use of opiate analgesic - Bariatric surgery status - Hypokalemia - Hypokalemia 08/18/2019 13:47 [facility] TYPE: Surgery DIAGNOSES: 73881. Unspecified abdominal hernia with obstruction, without gangre 26918. Morbid (severe) obesity due to excess calories 21762. Ventral hernia without obstruction or gangrene [email or web address]
--- NOTE | 2020-02-28 06:49 | EKG ---
[facility] [address] [facility] [place] [address] Signed Normal sinus rhythm Septal infarct (cited on or before 01-JUN-2019) Abnormal ECG When compared with ECG of 13-NOV-2019 17:37, Questionable change in initial forces of Anterior leads Nonspecific T wave abnormality now evident in Anterior leads Confirmed by DUGLAS ALTMAN MD ([id number]) on 02/28/2020 6:49:42 AM Electronically Signed By: DUGLAS ALTMAN MD 02/28/20 0649 PATIENT NAME: DYLAN ROMERO Electrocardiogram DATE OF : 79 PHYSICIAN: DUGLAS ALTMAN MD REPORT #: [id number] REPORT IS CONFIDENTIAL AND NOT TO BE RELEASED WITHOUT AUTHORIZATION
== END 2020-02-27 18:15 | disposition home or self-care (01) ==
LOC: ED 15:26
DX: J06.9 Acute upper respiratory infection, unspecified (principal); G43.909 Migraine, unspecified, not intractable, without status migrainosus; F41.9 Anxiety disorder, unspecified; Z20.828 Contact with and (suspected) exposure to other viral communicable diseases; Z88.8 Allergy status to other drugs, medicaments and biological substances; Z88.0 Allergy status to penicillin; Z88.6 Allergy status to analgesic agent; Z79.899 Other long term (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
CPT/HCPCS: 71045; 80053; 83735; 84484; 85025; 85379; 85610; 93005; 93010; 99285-25

== ENCOUNTER 2020-03-23 16:13 | Emergency (ER) | payer OTHER ==
[~2020-03-23] VITALS: Ht 147.3 cm; Wt 125.6 kg
--- OUTSIDE RECORDS SUMMARY | ~2020-03-23 | XMS | Encounter Summary ---
Demographics + + + | Address | [address] | | | [place] [address] | + + + | Home Phone | | + + + | Preferred Language | Unknown | + + + | Marital Status | Single | + + + | Pentecostal Affiliation | NON | + + + | Race | White | + + + | Ethnic Group | Not or | + + + Author + + + | Author | [facility] | + + + | Organization | [facility] | + + + | Address | Unknown | + + + | Phone | Unavailable | + + + Support + + + + + | Name | Relationship | Address | Phone | + + + + + | Katalina Padilla | ECON | [address] | | | | | [place], [place] | | | | | [address] | | + + + + + | Ellie Vang | ECON | Unknown | | + + + + + Care Team Providers + +------+ + | Care Manager Army Name | Role | Phone | + +------+ + | Jorje Hill MD | PCP | | + +------+ + Encounter Details +--------+ + + + + | Date | Type | Department | Care Team | Description | +--------+ + + + + | 02/08/ | Pharmacy | Outpatient Retail | | | | 2013 | Visit | [facility] | | | | | | [address] | | | | | | [place], [place] | | | | | | [address] | | | | | | [phone] | | | +--------+ + + + [...] on file | | + + + documented as of this encounter Plan of Treatment +--------+ + + + + | Date | Type | Specialty | Care Team | Description | +--------+ + + + + | 04/04/ | Telephone-S | Surgery | Orquidea Cristobal, | | | 2019 | sherrill | | COLLECTION CLERK [address] | | | | | | [place], [place] | | | | | | [address] | | | | | | [phone] | | | | | | | | +--------+ + + + + documented as of this encounter Visit Diagnoses Not on filedocumented in this encounter"
--- OUTSIDE RECORDS SUMMARY | ~2020-03-23 | XMS | Clinical Summary ---
Demographics + + + | Address | [address] | | | [place] [address] | + + + | Home Phone | | + + + | Preferred Language | Unknown | + + + | Marital Status | | + + + | Taoism Affiliation | Unknown | + + + | Race | White | + + + | Ethnic Group | Not or | + + + Author + + + | Author | [facility] | | | and [place] | + + + | Organization | [facility] | | | and [place] | + + + | Address | [...] Team Providers + +------+ + | Care Talent Development Coordinator Name | Role | Phone | + +------+ + | Jorje Hill | PCP | | + +------+ + Allergies + + + + + + | Active Allergy | Reactions | Severity | Noted | Comments | | | | | Date | | + + + + + + | Amoxicillin | Hives, Rash | Medium | 05/13/19 | | | | | | 93 | | + + + + + + | Bromocriptine | Other (See | Medium | 04/14/20 | Blood clot and | | | Comments), Unknown | | 13 | stroke Blood clots | | | | | | Blood clots | + + + + + + | Diphenhydramine | Anaphylaxis, Hives, | High | 10/08/19 | | | | Swelling | | 13 | | + + + + + + | Nsaids | Other (See Comments) | | 01/05/20 | Patient states | | | | | 20 | that she cannot have | | | | | | them due to her | | | | | | gastric bypass and | | | | | | blood thinners | + + + + + + | Penicillin G | Hives | | 01/02/20 | | | | | | 17 | | + + + + + + | Ondansetron | Hives | | 04/28/20 | | | | | | 19 | | + + + + + + Medications + + + +---------+------+------+-------+ | Medication | Sig | Dispensed | Refills | Star | End | Statu | | | | | | t | Date | s | | | | | | Date | | | + + + +---------+------+------+-------+ | ALPRAZolam (XANAX) | Take 1 mg by mouth 3 | | 0 | 08/1 | | Activ | | 0.5 mg tablet | times daily as | | | 20 | | e | | | needed Twice a day. | | | 16 | | | + + + +---------+------+------+-------+ | ascorbic acid | Take 1,000 mg by | | 0 | 03/2 | | Activ | | (VITAMIN C) 500 MG | mouth Daily. | | | 20 | | e | | tablet | | | | 19 | | | + + + +---------+------+------+-------+ | ergocalciferol | Take 1 capsule by | | 0 | 11/0 | | Activ | | (VITAMIN D-2) 50,000 | mouth every 7 days. | | | 20 | | e | | units capsule | | | | 18 | | | + + + +---------+------+------+-------+ | ferrous gluconate | Take 324 mg by | | 0 | | | Activ | | (FERGON) 324 mg | mouth. | | | | | e | | tablet | | | | | | | + + + +---------+------+------+-------+ | lurasidone | Take 40 mg by mouth | | 0 | | | Activ | | (LATUDA) 20 mg | Daily. | | | | | e | | tablet | | | | | | | + + + +---------+------+------+-------+ | magnesium oxide | Take 400 mg by mouth | | 0 | 08/1 | | Activ | | (MAG-OX) 400 mg | 2 times daily. | | | 1/20 | | e | | tablet | | | | 16 | | | + + + +---------+------+------+-------+ | Multiple | Take 2 tablets by | | 0 | | | Activ | | Vitamins-Minerals | mouth Daily. | | | | | e | | (MULTIVITAMIN WITH | | | | | | | | MINERALS) tablet | | | | | | | + + + +---------+------+------+-------+ | PARoxetine (PAXIL) | Take 40 mg by mouth | | 0 | | | Activ | | 10 mg tablet | Daily. | | | | | e | + + + +---------+------+------+-------+ | phentermine | Take 1 tablet by | | 0 | 11/0 | | Activ | | (ADIPEX-P) 37.5 mg | mouth every morning. | | | 04/15 | | e | | tablet | | | | 18 | | | + + + +---------+------+------+-------+ | spironolactone | Take 50 mg by mouth | | 0 | 08/1 | | Activ | | (ALDACTONE) 50 mg | Daily. | | | 08/15 | | e | | tablet | | | | 16 | | | + + + +---------+------+------+-------+ | torsemide | Take 100 mg by mouth | | 0 | 08/1 | | Activ | | (DEMADEX) 100 mg | 2 times daily. | | | 08/15 | | e | | tablet | | | | 16 | | | + + + +---------+------+------+-------+ | Docusate Sodium | Take 200 mg by mouth | | 0 | | | Activ | | (DULCOLAX STOOL | 2 times daily. | | | | | e | | SOFTENER PO) | | | | | | | + + + +---------+------+------+-------+ | | Take 4 tablets by | | 0 | | | Activ | | Upnymhp-Ytovyjvdk-Cp | mouth 2 times daily. | | | | | e | | tamin D (CITRACAL | | | | | | | | CALCIUM+D PO) | | | | | | | + + + +---------+------+------+-------+ | topiramate | 100 mg 3 times | | 0 | | | Activ | | (TOPAMAX) 50 MG | daily. | | | | | e | | tablet | | | | | | | + + + +---------+------+------+-------+ | pramipexole | pramipexole 0.125 mg | | 0 | | | Activ | | (MIRAPEX) 0.125 MG | tablet-2 tablets | | | | | e | | tablet | qhs | | | | | | + + + +---------+------+------+-------+ | thyroid (GERIATRIC NURSING ASSISTANT | GERIATRIC NURSING ASSISTANT Thyroid 30 mg | | 0 | | | Activ | | THYROID) 30 mg | tablet TAKE ONE | | | | | e | | tablet | TABLET BY MOUTH ONCE | | | | | | | | DAILY | | | | | | + + + +---------+------+------+-------+ | potassium chloride | 40 mEq. | | 0 | | | Activ | | 20 mEq CR tablet | | | | | | e | + + + +---------+------+------+-------+ | cyanocobalamin | Take 1,000 mcg by | | 0 | | | Activ | | (VITAMIN B-12) 1000 | mouth Daily. | | | | | e | | MCG tablet | | | | | | | + + + +---------+------+------+-------+ | atenolol | Take 1 tablet by | 30 | 11 | 07/28 | | Activ | | (TENORMIN) 50 mg | mouth nightly. | tablet | | 09/15 | | e | | tablet | | | | 20 | | | + + + +---------+------+------+-------+ +---+ + | | Additional | | | InformationPatient | | | taking differently: | | | 100 mg Oral NIGHTLY, | | | Take 100 mg daily, | | | Reported on | | | 01/24/2020 7:44 AM | +---+ + + + +---------+---+------+------+-------+ | metoclopramide | Take 10 mg by mouth | | 0 | | | Activ | | (REGLAN) 10 mg | as needed for | | | | | e | | tablet | Nausea. | | | | | | + + +---------+---+------+------+-------+ | warfarin | Take 5 mg by mouth | | 0 | | | Activ | | (COUMADIN) 5 mg | Daily. | | | | | e | | tablet | | | | | | | + + +---------+---+------+------+-------+ | rizatriptan | Take 5 mg by mouth | | 0 | | | Activ | | (MAXALT-RISK SPECIALIST) 5 mg | as needed for | | | | | e | | disintegrating | Migraine. May repeat | | | | | | | tablet | in 2 hours if | | | | | | | | needed | | | | | | + + +---------+---+------+------+-------+ | chlorproMAZINE | Take 100 mg by mouth | | 0 | | | Activ | | (THORAZINE) 100 mg | nightly. | | | | | e | | tablet | | | | | | | + + +---------+---+------+------+-------+ | | Take 1 tablet by | | 0 | | | Activ | | oxyCODONE-acetaminop | mouth every 6 hours | | | | | e | | hen (PERCOCET) | as needed for Pain. | | | | | | | 10-325 mg per tablet | | | | | | | + + +---------+---+------+------+-------+ | topiramate | Take 100 mg by mouth | | 0 | 07/2 | | Activ | | (TOPAMAX) 100 mg | 2 times daily . | | | 1/20 | | e | | tablet | | | | 20 | | | + + +---------+---+------+------+-------+ | prazosin | Take 2 mg by mouth 2 | | 0 | | | Activ | | (MINIPRESS) 2 MG | times daily. | | | | | e | | capsule | | | | | | | + + +---------+---+------+------+-------+ | gabapentin | Increase as | 90 | 3 | 08/2 | | Activ | | (NEURONTIN) 100 mg | instructed to 3 caps | capsule | | 6/20 | | e | | capsuleIndications: | three times a day. | | | 20 | | | | Intractable chronic | | | | | | | | common migraine | | | | | | | | without aura | | | | | | | + + +---------+---+------+------+-------+ | gabapentin | Take 1 cap three | 180 | 3 | 06/3 | 08/2 | Disco | | (NEURONTIN) 100 mg | times a day for a | capsule | | 0/20 | 6/ | ntinu | | capsuleIndications: | week, then 2 caps | | | 20 | 20 | ed | | Intractable chronic | three times a day. | | | | | (Reor | | common migraine | | | | | | philip | | without aura | | | | | | (no | | | | | | | | Cance | | | | | | | | l Rx | | | | | | | | msg)) | + + +---------+---+------+------+-------+ Active Problems + + + | Problem | Noted Date | + + + | Bilateral leg edema | 01/05/2020 | + + + | Hyperparathyroidism | 10/28/2019 | + + + | History of bariatric surgery | 04/28/2019 | + + + | Nonallopathic lesion of cervical region | 02/17/2019 | + + + | Abdominal hernia | 02/17/2019 | + + + | Chronic maxillary sinusitis | 02/17/2019 | + + + | Anxiety disorder | 02/17/2019 | + + + | Diverticulitis of colon | 02/17/2019 | + + + | Dysuria | 02/17/2019 | + + + | Elevated international normalized ratio (INR) | 02/17/2019 | + + + | Persistent insomnia | 02/17/2019 | + + + | Pharyngitis | 02/17/2019 | + + + | Physical deconditioning | 02/17/2019 | + + + | Postoperative pain | 02/17/2019 | + + + | Stasis dermatitis | 02/17/2019 | + + + | Thromboembolism of vein | 02/17/2019 | + + + | Recurrent ventral hernia | 02/17/2019 | + + + | Bipolar disorder | 02/03/2019 | + + + + + | Overview: Last Assessment & Plan: Complicated by agoraphobia | | / anxietyHome meds: xanax 1mg qAM, 2mg qHS, prozac 60mg qHS, | | zyprexa 30mg qHS, topamax 200mg BID-Continued on prozac 60mg, | | zyprexa 30mg qhs-She was changed to low dose alprazolam to 0.5-1 | | bid prn and encouraged to use minimally to prevent oversedation | | and worsening hypoxia/AMARA; she mostly required 0.5mg qhs to help | | tolerate her new BiPAP-Continue on a lowered dose of topiramate | | 50mg bid (lowered due pt's c/o cognitive impairment, could be | | increased to 100mg BID as an outpatient) | + + + + + | STEFANO (iron deficiency anemia) | 02/03/2019 | + + + + --+ | Overview: Overview: Presumed due to menses. Venofer 200 qd x | | 30 October 2015 [facility] Assessment & Plan: Hgb appears to run 9-11 | | in review of records. No concerns of bleeding, hgb not checked | | here.-continue to monitor with hgb prn | |Hgb appears to run 9-11 in review of records. No concerns of bleeding, hgb not checked here . | |-continue to monitor with hgb prn | + --+ + + + | History of Frandy-en-Y gastric bypass | 04/26/2018 | + + + | History of sinus tachycardia | 04/26/2018 | + + + | History of stroke | 04/26/2018 | + + + | Impaired intestinal absorption | 03/10/2018 | + + + | History of pulmonary embolism | 02/02/2017 | + + + | Mixed hyperlipidemia | 02/02/2017 | + + + | Personal history of DVT (deep vein thrombosis) | 02/02/2017 | + + + | Severe muscle deconditioning | 02/02/2017 | + + + | Hyperuricemia | 04/21/2016 | + + + | Hypokalemia | 04/21/2016 | + + + | Chronic diastolic heart failure | 12/25/2015 | + + + + + | Overview: Last Assessment & Plan: Heart failure of preserved | | EF- recent DVT/PE/Cellulitis/ morbid obesityPickwickian syndrome | | Recent admission to [facility] for 100lb | | weight gain- DC on diuresis on 03/06/2016- she feel improvedShe | | was on Metolazone and Torsemide prior to hospitalization- both | | have better bioavailability than lasix in gut edema but she | | retained 100lbs - how ever she is currently on only Torsemide | | 100mg Q12hrs started in [place] and her weight been stable | | sinceShe has no other complaints.She is pending to see | | NephrologistValentina 02/16/2016(Neftali Roberts)- Normal LV systolic | | function, mildly dilated RVContinue Torsemide and she will | | continue to monitor weights at homeF/u in 6 weeks.She will | | continue to monitor weights, BP, HR at home. Discussed with her | | about CHF- management- importance of weight management, Bp | | management, Na restriction.Continue K and Mg supplementsGrace is | | aware I am going on a vacation starting January 01- she will come | | to ER in case of worsening symptoms and will see me first week of | | January. | + + + + + | Hypothyroidism | 08/28/2014 | + + + + + | Overview: Last Assessment & Plan: | | TSH WNL 10/2015. She is on armour thyroid as OP. | | -TSH WNL | | -continue supplementation here | + + + + + | Migraine headache | 12/05/2013 | + + + + + | Overview: Overview: | | Uses topamax for ppx and eletriptan prn | + + + + + | Candidal intertrigo | 06/16/2013 | + + + | Hernia of anterior abdominal wall | 06/16/2013 | + + + | PCOS (polycystic ovarian syndrome) | 06/16/2013 | + + + | Skin breakdown | 06/16/2013 | + + + | Vitamin D deficiency | 06/16/2013 | + + + + + | Overview: Overview: | | Ergo 50K 2x/wk since October 2015 | + + + + + | Nonallopathic lesion of thoracic region | 03/14/2013 | + + + | Nausea and vomiting | 03/14/2013 | + + + | Obesity with alveolar hypoventilation | 03/14/2013 | + + + | Ventral incisional hernia | 11/01/2012 | + + + | Dysmenorrhea | 06/22/2012 | + + + | Staphylococcal infectious disease | 10/21/2011 | + + + | Furuncle | 10/01/2011 | + + + | Anal pain | 08/06/2011 | + + + | External hemorrhoids without complication | 08/06/2011 | + + + | Internal hemorrhoids without complication | 08/06/2011 | + + + | Atopic dermatitis | 04/21/2011 | + + + | Gastroesophageal reflux disease | 04/14/2011 | + + + | Open wound of anterior abdominal wall | 10/15/2010 | + + + | Allergic rhinitis due to pollen | 01/30/2010 | + + + | Family history of malignant neoplasm of genital organ | 11/27/2009 | + + + | Family history of arthritis | 11/27/2009 | + + + | Family history of asthma | 11/27/2009 | + + + | Family history of diabetes mellitus | 11/27/2009 | + + + | Family history of ischemic heart disease | 11/27/2009 | + + + | Family history of malignant neoplasm of gastrointestinal tract | 11/27/2009 | + + + | Family history of malignant neoplasm of trachea, bronchus, and | 11/27/2009 | | lung | | + + + | Family history of mental disorder | 11/27/2009 | + + + | Family history of neurological disorder | 11/27/2009 | + + + | Family history of stroke | 11/27/2009 | + + + | Family history of sudden | 11/27/2009 | + + + | Osteoarthritis of knee | 11/27/2009 | + + + | Pain in joint | 11/27/2009 | + + + | Pain in joint involving pelvic region and thigh | 11/27/2009 | + + + | Primary localized osteoarthritis of pelvic region and thigh | 11/27/2009 | + + + | Variants of migraine with intractable migraine | 11/27/2009 | + + + | HTN, goal below 130/80 | 11/27/2009 | + + + | Sleep apnea with use of continuous positive airway pressure | 11/27/2009 | | (CPAP) | | + + + Resolved Problems + + + + | Problem | Noted | Resolved | | | Date | Date | + + + + | Incarcerated hernia | 08/18/19 | | | | 20 | 0 | + + + + | Foot infection | 02/18/20 | | | | 19 | 0 | + + + + | Abrasion of back with infection | 02/18/20 | | | | 19 | 0 | + + + + | Abrasion or friction burn of ear without infection | 02/18/20 | | | | 19 | 0 | + + + + | Acute bronchitis | 02/18/20 | | | | 19 | 0 | + + + + | Cellulitis of lower limb | 02/18/20 | | | | 19 | 0 | + + + + | Chronic pain syndrome | 02/18/20 | | | | 19 | 0 | + + + + | Cough | 02/18/20 | | | | 19 | 0 | + + + + | Diarrhea | 02/18/20 | | | | 19 | 0 | + + + + | Pain in lower limb | 02/18/20 | | | | 19 | 0 | + + + + | Infection of skin and subcutaneous tissue | 02/18/20 | | | | 19 | 9 | + + + + | Injury of kidney | 02/18/20 | | | | 19 | 0 | + + + + | Menometrorrhagia | 02/18/20 | | | | 19 | 0 | + + + + | Muscle strain | 02/18/20 | | | | 19 | 0 | + + + + | Polyuria | 02/18/20 | | | | 19 | 0 | + + + + | Pulmonary embolism | 02/18/20 | | | | 19 | 0 | + + + + | Pyelonephritis | 02/18/20 | | | | 19 | 0 | + + + + | Serous otitis media | 02/18/20 | | | | 19 | 0 | + + + + | Sprain of jaw | 02/18/20 | | | | 19 | 0 | + + + + | Upper respiratory infection | 02/18/20 | | | | 19 | 0 | + + + + | Urinary tract infectious disease | 02/18/20 | | | | 19 | 0 | + + + + | Wheezing | 02/18/20 | | | | 19 | 0 | + + + + | Pain in pelvis | 02/18/20 | | | | 19 | 0 | + + + + | Suprapubic pain | 02/18/20 | | | | 19 | 0 | + + + + | Chronic left-sided congestive heart failure | 02/18/20 | | | | 19 | 0 | + + + + | Moderate bipolar disorder | 02/18/20 | | | | 19 | 0 | + + + + | Deep vein thrombosis of lower extremity | 02/18/20 | | | | 19 | 0 | + + + + | Type 2 diabetes mellitus without complication, with long-term | 02/18/20 | | | current use of insulin | 19 | 9 | + + + + | Hypokalemia, excessive renal losses | 02/18/20 | | | | 19 | 0 | + + + + + + | Overview: Problem List Legislative Correspondent Utility | + + + + + + | Peripheral edema | 02/18/20 | | | | 19 | 0 | + + + + | Obstructive sleep apnea of adult | 02/18/20 | | | | 19 | 9 | + + + + | Right heart failure due to pulmonary hypertension | 02/18/20 | | | | 19 | 9 | + + + + | Acute on chronic systolic right heart failure | 02/04/20 | | | | 19 | 9 | + + + + | Benign essential HTN | 02/03/20 | | | | 17 | 9 | + + + + | Immobility | 02/03/20 | | | | 17 | 0 | + + + + | Lipoedema | 11/29/19 | | | | 17 | 0 | + + + + | Acute right-sided low back pain without sciatica | 10/21/19 | | | | 17 | 0 | + + + + | DM (diabetes mellitus) | 05/09/20 | | | | 16 | 0 | + + + + + + | Overview: Overview: A1c 5.3 Aug Assessment & Plan: | | Last A1c in Care Everywhere is 5.3.As an outpatient the patient | | is on metformin, lantus 67 units in AM and aspart 25 units with | | meals and SSI. Blood sugar control is adequate here (range | | 130-160)- Remains on DM diet 45g carb to help encourage weight | | loss- Managed with NPH 5u BID with good control, so we will | | continue this at home- Resume Metformin 500mg BID at discharge to | | help with insulin resistance- CBG checks ACHS at homeLast | | Assessment & Plan: DM2, managed by PCP. | |- CBG checks ACHS at home | | | |Last Assessment & Plan: | |DM2, managed by PCP. | + + + + + + | Hypoalbuminemia | 11/11/19 | | | | 16 | 0 | + + + + | Right heart failure | 11/07/19 | | | | 16 | 0 | + + + + + + | Overview: Overview: TTE 11/07/2015The interpretation of images | | is limited by poor acoustic windows.2. The left ventricular | | cavity size is normal.3. The LV ejection fraction is normal.4. | | The right ventricular size is moderately enlarged.5. moderately | | enlarged RV & Moderately reduced RV systolic function, The RV | | TDI s' velocity is 9cm/sec* IVC is non-dilated & with normal | | respiratory variation.6. There are no prior exams available for | | comparison.. | |* IVC is non-dilated & with normal respiratory variation. | | | |6. There are no prior exams available for comparison. | |. | + + + + + + | Anasarca | 11/06/19 | | | | 16 | 0 | + + + + | YO (dyspnea on exertion) | 11/06/19 | | | | 16 | 0 | + + + + | Acute on chronic congestive heart failure with right ventricular | 10/26/19 | | | diastolic dysfunction | 16 | 9 | + + + + + + | Overview: [facility] Patient with | | morbid obesity (BMI 100 at admission), history of right heart | | failure in the setting of DVT and presumed PE presented with 100 | | lb weight gain. Concern for recurrent RV failure, but etiology is | | unclear (questionable medication compliance and possible | | polydipsia). Her ECHOs from 10/2015 and 12/2015 with presumed | | normal RV/LV normal function, EF of 70% (though difficult study | | given her body habitus); NICOLA did suggest reduced RV systolic | | function. 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 Her RVSP was minimal on outside TTE, making | | PAH less likely, but she may need RHC to completely rule this | | out. CTEPH remains a concern given her prior h/o of geraldo | | thrombus CVA and DVTs; no prior CTA's due to body habitus I | | believe. It seems she previously responded well to diuresis at | | [facility] (lost 60lb, down to 410), and then reaccumulated water | | weight on Torsemide and metolazone, which should be less effected | | by gut wall edema than Lasix. She has an appt with nephrology at | | [facility] on 03/17. Weight now 200kg (440lb, down from ~537lb all | | standing weights). BNP down to 44 from 163.- I/O show she is | | making ~6L UOP on the torsemide/spironolactone- She had been | | drinking ~2L/day on the dot prior to our discussions regarding | | the importance of fluid restriction; but then only took in 1.4L | | the day after the discussion; we will re-enforce the importance | | of consistency with intake & diuretics- Continue Torsemide 100mg | | BID- Continue Sprionolactone 50mg daily - Defer Metolazone to her | | outpatient Land Mobile Radio Technician or Revenue Settlements Administrator- Will continue KCL | | supplementation at 60meq QID despite the spironolactone as she | | remains on the low side- Encourage daily weights at home with a | | log; she should contact her PCP, Land Mobile Radio Technician or Revenue Settlements Administrator for | | a 10lb weight gain in 3 days or if her weight is > 450lb- She | | should have her Renal function checked in 1 week- Digoxin and | | Metoprolol XL were held during the admission, her BP and HR were | | controlled, thus the will not be resumed at discharge | + + + + + + | Deep vein thrombosis (DVT) of left lower extremity | 10/26/19 | | | | 16 | 0 | + + + + + + | Overview: Last Assessment & Plan: Diagnosed in 10/2015, at | | that time had presumed PE. Started on warfarin, presented with | | INR of 2.8 (making recurrent PE less likely).-continue warfarin | | per pharmacy, I would recommend life long therapy but will defer | | her to PCPOverview: LE Doppler (Nov 07, 2015 ++ DVT LLE The | | left mid and distal femoral vein and popliteal vein are | | noncompressible with hypoechoic clot within them, c/w an. | | occlusive thrombus seen within the mid and distal femoral vein | | and popliteal vein. Nonocclusive thrombus in left posterior | | tibial vein. Bilateral common femoral veins patent. | + + + + + + | Diabetes mellitus with insulin therapy | 12/28/19 | | | | 15 | 0 | + + + + | Abdominal pain | 02/08/20 | | | | 14 | 0 | + + + + | Anemia | 06/16/20 | | | | 13 | 0 | + + + + | Decreased mobility | 06/16/20 | | | | 13 | 0 | + + + + | Hypertension | 06/16/20 | | | | 13 | 9 | + + + + | Morbid obesity with alveolar hypoventilation | 06/16/20 | | | | 13 | 0 | + + + + + + | Overview: Last Assessment & Plan: | | [facility], has lost 50lbs. | + + + + + + | Flank pain | 05/31/20 | | | | 13 | 0 | + + + + | Type 1 diabetes mellitus | 05/31/20 | | | | 13 | 0 | + + + + | Diabetes mellitus type 2 without retinopathy | 04/14/20 | | | | 13 | 0 | + + + + | Edema | 04/14/20 | | | | 13 | 0 | + + + + + + | Overview: Last Assessment & Plan: Edema. 41yo WF, with | | morbid obesity, she is enrolled in the [facility] bariatric program. | | She has lost approximately 50 pounds, states that she needs to | | lose more weight before she can have her surgery that she is | | hoping to have. Recently seen in the emergency room, right leg | | discomfort. She does have changes of DJD, but there is no | | fracture or dislocation. Negative for DVT. Currently being | | treated with nonsteroidal anti-inflammatory agents and narcotics. | | For the peripheral edema, she's been using diuretics for some | | time. Her echocardiogram shows normal LV systolic function. | | There is possible she may have some degree of diastolic | | abnormality or perhaps transient RV failure, but this is not | | apparent on her echo. Apparently she has sleep apnea, is using | | the BiPAP machine. Tolerating current medications. No changes | | in therapy. She continues her diuretic therapy for peripheral | | edema, symptomatic relief.Last Cath: naLast Echo, [facility]/02/2016 ([facility] [...] 249 | + + + + + + | Obstructive sleep apnea syndrome | 04/14/20 | | | | 13 | 0 | + + + + + + | Overview: Overview: Possible, needs sleep studyLast | | Assessment & Plan: Sleep study 03/03/2016 after ~ 20kg of inpatient | | diuresis. Results show severe AMARA with desaturations as low at | | 65% and 66% of time hypoxic below 88%. Now requiring BiPAP | | auto-set with min 9 cmH20, max 20 cmH20, pressure support of | | 6cmH20.-- Orders added while inpatient, tolerating well in the | | [facility]-- CISNE arranging for BiPAP upon [facility] | | areaOverview: Cannot tolerate CPAP | |Cannot tolerate CPAP | + + + + + + | Postoperative seroma | 12/07/19 | | | | 13 | 0 | + + + + | Influenza vaccine needed | 05/13/20 | | | | 12 | 0 | + + + + | Acute upper respiratory infection | 02/12/20 | | | | 12 | 0 | + + + + | Tinea corporis | 10/21/19 | | | | 12 | 0 | + + + + | Acute stress disorder | 04/21/20 | | | | 11 | 0 | + + + + | Panic | 04/21/20 | | | | 11 | 0 | + + + + | Foot pain | 03/17/20 | | | | 11 | 0 | + + + + | Periumbilical pain | 03/17/20 | | | | 11 | 0 | + + + + | Left upper quadrant pain | 03/13/20 | | | | 11 | 0 | + + + + | Lymphedema | 03/13/20 | | | | 11 | 0 | + + + + | Neck sprain | 12/17/19 | | | | 11 | 0 | + + + + | Right lower quadrant pain | 10/16/19 | | | | 11 | 0 | + + + + | Acute maxillary sinusitis | 05/06/20 | | | | 10 | 0 | + + + + | Muscle pain | 05/06/20 | | | | 10 | 0 | + + + + | Neck pain | 02/28/20 | | | | 10 | 0 | + + + + | Migraine | 01/01/20 | | | | 10 | 0 | + + + + | Moderate depressed bipolar I disorder | 11/28/19 | | | | 10 | 0 | + + + + | Fatigue | 11/28/19 | | | | 10 | 0 | + + + + | Depressive disorder | 11/28/19 | | | | 10 | 0 | + + + + | Type 1 diabetes mellitus, uncontrolled | 11/28/19 | | | | 10 | 9 | + + + + | Morbid obesity | 11/28/19 | | | | 10 | 0 | + + + + Encounters +--------+ + + + + | Date | Type | Specialty | Care Team | Description | +--------+ + + + + | 03/21/ | Virtual | Neurology | Camille De La Paz, | 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 | | | Visit | | | without aura | | | | | | (Primary Dx) | +--------+ + + + + | 02/14/ | Telephone | Neurology | Gerard, | Other | | 2019 | | | ROSE Maddox | (Documentation) | +--------+ + + + + | 02/12/ | Telephone | Neurology | Camille De La Paz, | Other (Medication) | | 2019 | | | MD | | +--------+ + + + + | 01/23/ | Virtual | Neurology | Camille De La Paz, | Intractable chronic | 2019 | Office | | MD | common migraine | | | Visit | | | without aura | | | | | | (Primary Dx); | | | | | | Medication overuse | | | | | | headache | +--------+ + + + + | 01/11/ | Telephone | Neurology | Camille De La Paz, | Referral | | 2019 | | | MD | | +--------+ + + + + | 01/05/ | Orders Only | Nephrology | Augustine Fu MD | | 2019 | | | | | +--------+ + + + + | 01/04/ | Virtual | Nephrology | Augustine Fu MD | Hypokalemia (Primary | | 2019 | Office | | | Dx); Bilateral leg | | | Visit | | | edema; Class 3 | | | | | | obesity with | | | | | | 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 | | | | | | comorbidity with | | | | | | body mass index | | | | | | (BMI) of 40.0 to | | | | | | 44.9 in adult ([facility]); | | | | | | Hyperuricemia | +--------+ + + + + | 01/04/ | Documentati | Nephrology | Bassam | Results (01/04/20) | | 2020 | on | | [facility] | | | | | | [facility] | | +--------+ + + + + | 01/01/ | Orders Only | Nephrology | Augustine Fu MD | Hyperparathyroidism | | 2020 | | | | ([facility]) (Primary Dx); | | | | | | CKD (chronic kidney | | | | | | disease) stage 2, | | | | | | GFR 60-89 ml/min; | | | | | | HTN, goal below | | | | | | 130/80; Edema, | | | | | | unspecified type; | | | | | | Hyperuricemia; | | | | | | Hypokalemia | +--------+ + + + + from Last 3 Months Immunizations + + + + | Name | Administration Dates | Next Due | + + + + | DTP (PED) | 06/12/1982, 04/05/1982, 10/23/1980, | | | | 1977 | | + + + + | INFLUENZA PF | 06/04/2017, 04/16/2016 | | | QUAD(PED/ADOL/ADULT) | | | | ,PSKT or VIAL | | | + + + + | INFLUENZA QUADR | 04/27/2018 | | | W/PRES | | | | (PED/ADOL/ADULT) | | | | MULTIDOSE | | | + + + + Family History + + +------+ + | Medical History | Relation | Name | Comments | + + +------+ + | Asthma | Brother | | | + + +------+ + | Asthma | Daughter | | | + + +------+ + | Alcohol abuse | Father | | | + + +------+ + | Arthritis | Father | | | + + +------+ + | Asthma | Father | | | + + +------+ + | Heart disease | Father | | | + + +------+ + | Hypertension | Father | | | + + +------+ + | Obesity | Father | | | + + +------+ + | Heart disease | Maternal | | | | | Grandmoth | | | | | er | | | + + +------+ + | Alcohol abuse | Mother | | | + + +------+ + | Arthritis | Mother | | | + + +------+ + | Diabetes | Mother | | | + + +------+ + | Hypertension | Mother | | | + + +------+ + | Obesity | Mother | | | + + +------+ + | Lupus | Sister | | | + + +------+ + | Obesity | Sister | | | + + +------+ + + +------+ + + | Relation | Name | Status | Comments | + +------+ + + | Brother | | | | + +------+ + + | Daughter | | | | + +------+ + [...] + + + | Blood Pressure | 121/80 | 10/27/2019 12:58 PM | | | | | PDT | | + + + + + | Pulse | 79 | 10/27/2019 12:58 PM | | | | | PDT | | + + + + + | Temperature | 36.7 C (98 F) | 06/22/2019 10:20 AM | | | | | PST | | + + + + + | Respiratory Rate | 19 | 06/22/2019 10:20 AM | | | | | PST | | + + + + + | Oxygen Saturation | 100% | 06/22/2019 10:20 AM | | | | | PST | | + + + + + | Inhaled Oxygen | - | - | | | Concentration | | | | + + + + + | Weight | 121.1 kg (267 lb) | 10/27/2019 12:58 PM | | | | | PDT | | + + + + + | Height | 147.3 cm (4' 10") | 10/27/2019 12:58 PM | | | | | PDT | | + + + + + | Body Mass Index | 55.8 | 10/27/2019 12:58 PM | | | | | PDT | | + + + + + Plan of Treatment +--------+ + + + + | Date | Type | Specialty | Care Team | Description | +--------+ + + + + | 03/29/ | Office | Cardiology | Sulema Altamirano | | | 2019 | Visit | | [address] | | | | | | [address] | | | | | | [place] [address] | | | | | | [phone] | | | | | | | | +--------+ + + + + | 04/18/ | Procedure | Neurology | Camille De La Paz, | | | 2019 | visit | | MD [address] | | | | | | [address] | | | | | | [place] [address] | | | | | | [phone] | | | | | | | | +--------+ + + + + + + + + + | Health Maintenance | Due Date | Last | Comments | | | | Done | | + + + + + | Hepatitis C | | | | | Screening | 7 | | | + + + + + | Med Mgmt: HDL | | | | | | 7 | | | + + + + + | Med Mgmt: LDL | | | | | | 7 | | | + + + + + | Med Mgmt: Total | | | | | Cholesterol | 7 | | | + + + + + | Med Mgmt: | | | | | Triglycerides | 7 | | | + + + + + | Medication | | | | | Management | 7 | | | + + + + + | Vaccine: | | | | | Pneumococcal 19-64 | 3 | | | | (1 of 1 - PPSV23) | | | | + + + + + | Vaccine: | | 03/24/19 | | | Dtap/Tdap/Td (5 - | 8 | 88, | | | Tdap) | | 06/12/19 | | | | | 82, | | | | | 04/05/19 | | | | | 82, | | | | | Addition | | | | | al | | | | | history | | | | | exists | | + + + + + | Cervical Cancer | | | | | Screening (Pap) | 7 | | | + + + + + | Med Mgmt: INR | | 10/05/19 | | | | 9 | 19, | | | | | 02/15/20 | | | | | 16 | | + + + + + | Med Mgmt: HBA1C | | 10/05/19 | | | | 0 | 19 | | + + + + + | Med Mgmt: TSH | | 10/05/19 | | | | 0 | 19 | | + + + + + | Med Mgmt: Vit D | | 10/05/19 | | | | 0 | 19 | | + + + + + | Vaccine: Influenza | | 04/27/20 | | | (#1) | 0 | 18, | | | | | 06/04/20 | | | | | 17, | | | | | 04/16/20 | | | | | 16, | | | | | Addition | | | | | al | | | | | history | | | | | exists | | + + + + + | Med Mgmt: Cr | | 01/04/20 | | | | 1 | 20, | | | | | 01/04/20 | | | | | 20, | | | | | 12/08/19 | | | | | 19, | | | | | Addition | | | | | al | | | | | history | | | | | exists | | + + + + + | Med Mgmt: Glucose | | 01/04/20 | | | | 1 | 20, | | | | | 01/04/20 | | | | | 20, | | | | | 12/08/19 | | | | | 19, | | | | | Addition | | | | | al | | | | | history | | | | | exists | | + + + + + | Med Mgmt: HCT | | 01/04/20 | | | | 1 | 20, | | | | | 12/15/19 | | | | | 19, | | | | | 12/08/19 | | | | | 19, | | | | | Addition | | | | | al | | | | | history | | | | | exists | | + + + + + | Med Mgmt: HGB | | 01/04/20 | | | | 1 | 20, | | | | | 12/15/19 | | | | | 19, | | | | | 12/08/19 | | | | | 19, | | | | | Addition | | | | | al | | | | | history | | | | | exists | | + + + + + | Med Mgmt: K | | 01/04/20 | | | | 1 | 20, | | | | | 01/04/20 | | | | | 20, | | | | | 12/08/19 | | | | | 19, | | | | | Addition | | | | | al | | | | | history | | | | | exists | | + + + + + | Med Mgmt: Na | | 01/04/20 | | | | 1 | 20, | | | | | 01/04/20 | | | | | 20, | | | | | 12/08/19 | | | | | 19, | | | | | Addition | | | | | al | | | | | history | | | | | exists | | + + + + + | Med Mgmt: PLT | | 01/04/20 | | | | 1 | 20, | | | | | 12/18/19 | | | | | 19, | | | | | 12/15/19 | | | | | 19, | | | | | Addition | | | | | al | | | | | history | | | | | exists | | + + + + + | Med Mgmt: RBC | | 01/04/20 | | | | 1 | 20, | | | | | 12/15/19 | | | | | 19, | | | | | 12/08/19 | | | | | 19, | | | | | Addition | | | | | al | | | | | history | | | | | exists | | + + + + + | Med Mgmt: WBC | | 01/04/20 | | | | 1 | 20, | | | | | 12/15/19 | | | | | 19, | | | | | 12/08/19 | | | | | 19, | | | | | Addition | | | | | al | | | | | history | | | | | exists | | + + + + + | Med Mgmt: eGFR | | 01/04/20 | | | | 1 | 20, | | | | | 01/04/20 | | | | | 20, | | | | | 12/08/19 | | | | | 19, | | | | | Addition | | | | | al | | | | | history | | | | | exists | | + + + + + Procedures + +--------+ + + + | Procedure Name | Priori | Date/Time | Associated Diagnosis | Comments | | | ty | | | | + +--------+ + + + | CBC NO DIFFERENTIAL | Routin | 01/04/2020 | | Results for this | | | e | | | procedure are in the | | | | | | results section. | + +--------+ + + + | MAGNESIUM | Routin | 01/04/2020 | | Results for this | | | e | | | procedure are in the | | | | | | results section. | + +--------+ + + + | RENAL FUNCTION PANEL | Routin | 01/04/2020 | | Results for this | | | e | | | procedure are in the | | | | | | results section. | + +--------+ + + + | PROTEIN/CREATININE | Routin | 01/04/2020 | | Results for this | | RATIO, URINE | e | | | procedure are in the | | | | | | results section. | + +--------+ + + + | URIC ACID | Routin | 01/04/2020 | | Results for this | | | e | | | procedure are in the | | | | | | results section. | + +--------+ + + + from Last 3 Months Results CBC with Manual Differential (01/04/2020) + +--------+ + + + | Component | Value | Ref Range | Performed | Pathologist | | | | | At | Signature | + +--------+ + + + | WBC | 9.0 | 4.59 - 11.0 | | | + +--------+ + + + | Red Blood | 4.59 | 3.80 - 5.10 | | | | Cells | | M/uL | | | + +--------+ + + + | Hemoglobin | 13.3 | 12 - 16 | | | + +--------+ + + + | Hematocrit, | 41.4 | 35.0 - 45.0 % | | | | POC | | | | | + +--------+ + + + | MCV | 90.2 | 81.0 - 99.0 fL | | | + +--------+ + + + | MCH | 29.0 | 27.0 - 33.0 pg | | | + +--------+ + + + | MCHC | 32.0 | 30.0 - 36.0 | | | + +--------+ + + + | Platelet | 298 | 140 - 440 | | | | Count | | | | | | Plasma | | | | | + +--------+ + + + | RDW | 16 (A) | 10.5 - 15.0 | | | + +--------+ + + + | BAL | 52 | 39 - 80 % | | | | Neutrophils | | | | | | % | | | | | + +--------+ + + + | % | 36.8 | 24 - 44 | | | | Lymphocytes | | | | | + +--------+ + + + | Monocyte % | 7.3 | 0 - 12 | | | + +--------+ + + + | Eosinophils | 3.7 | 0 - 6 | | | | % | | | | | + +--------+ + + + | % | 1 | 0 - 2 % | | | | Basophils, | | | | | | Body Fluid | | | | | + +--------+ + + + + + | Specimen | + + | Blood | + + Protein/Creatinine Ratio, Urine (01/04/2020) + +---------+ + + + | Component | Value | Ref Range | Performed | Pathologist | | | | | At | Signature | + +---------+ + + + | Na | 138 | 132 - 143 | | | | | | mmol/L | | | + +---------+ + + + | K | 3.4 (A) | 3.6 - 5.1 | | | | | | mmol/L | | | + +---------+ + + + | Cl | 100 | 95 - 112 mmol/L | | | + +---------+ + + + | CO2 | 26 | 19 - 31 mmol/L | | | + +---------+ + + + | Anion Gap | 15 | 7 - 21 mmol/L | | | + +---------+ + + + | Glucose | 241 (A) | 70 - 100 mg/dL | | | + +---------+ + + + | BUN | 15 | 6 - 23 mg/dL | | | + +---------+ + + + | Creatinine | 0.85 | 0.60 - 1.35 | | | | | | mg/dL | | | + +---------+ + + + | Estimated | 73.0 | 60.0 - 140.0 | | | | GFR | | mL/min/1.73m2 | | | + +---------+ + + + | BUN/Creatin | 17.6 | 6.0 - 28.6 | | | | ine Ratio | | | | | + +---------+ + + + | Albumin | 3.7 | 3.5 - 5.0 g/dL | | | + +---------+ + + + | Calcium | 8.3 (A) | 8.5 - 10.3 | | | + +---------+ + + + + + | Specimen | + + | Urine | + + Uric Acid (01/04/2020) + +---------+ + + + | Component | Value | Ref Range | Performed | Pathologist | | | | | At | Signature | + +---------+ + + + | Uric Acid | 8.5 (A) | 2.3 - 6.6 | | | + +---------+ + + + + + | Specimen | + + | Blood | + + Magnesium (01/04/2020) + +-------+ + + + | Component | Value | Ref Range | Performed | Pathologist | | | | | At | Signature | + +-------+ + + + | MG | 1.8 | 1.7 - 2.5 | | | + +-------+ + + + + + | Specimen | + + | Blood | + + Renal Function Panel (01/04/2020) + +---------+ + + + | Component | Value | Ref Range | Performed | Pathologist | | | | | At | Signature | + +---------+ + + + | Na | 138 | 132 - 143 | | | | | | mmol/L | | | + +---------+ + + + | K | 3.4 (A) | 3.6 - 5.1 | | | | | | mmol/L | | | + +---------+ + + + | Cl | 100 | 95 - 112 mmol/L | | | + +---------+ + + + | CO2 | 26 | 19 - 31 mmol/L | | | + +---------+ + + + | Anion Gap | 15 | 7 - 21 mmol/L | | | + +---------+ + + + | Glucose | 241 (A) | 70 - 100 mg/dL | | | + +---------+ + + + | BUN | 15 | 6 - 23 mg/dL | | | + +---------+ + + + | Creatinine | 0.85 | 0.60 - 1.35 | | | | | | mg/dL | | | + +---------+ + + + | Estimated | 73.0 | 60.0 - 140.0 | | | | GFR | | mL/min/1.73m2 | | | + +---------+ + + + | BUN/Creatin | 17.6 | 6.0 - 28.6 | | | | ine Ratio | | | | | + +---------+ + + + | Albumin | 3.7 | 3.5 - 5.0 g/dL | | | + +---------+ + + + | Calcium | 8.3 (A) | 8.5 - 10.3 | | | + +---------+ + + + | PHOSPHORUS | 2.9 | 2.5 - 5.0 | | | + +---------+ + + + + + | Specimen | + + | Blood | + + from Last 3 Months Insurance + +--------+ +--------+ +---------+--------+ | Payer | Benefi | Subscriber | Effect | Phone | Address | Type | | | t Plan | ID | [place] | | | | | | / | | Dates | | | | | | Group | | | | | | + +--------+ +--------+ +---------+--------+ | [employer] | [employer] | [id number] | 10/28/19 | [phone] | | Medica | | MEDICAID HMO | HEALTH | | 19-Pre | 1 | | id | | | MDCD | | sent | | | | | | [place] | | | | | | + +--------+ +--------+ +---------+--------+ | [employer] | [employer] | [id number] | | [phone] | | Medica | | MEDICAID HMO | HEALTH | | 019-Pr | 1 | | id | | | MDCD | | esent | | | | | | [place] | | | | | | + +--------+ +--------+ +---------+--------+ + +--------+ +--------+ + + | Guarantor Name | Accoun | Relation to | Date | Phone | Billing Address | | | t Type | Patient | of | | | | | | | | | | + +--------+ +--------+ + + | Elzbieta Cristina | Person | Self [birth year] | [address] | | | al/Fam | | 1974 | [phone] | [place], [place] | | | [place] | | | 3 (Home) | [phone] | + +--------+ +--------+ + + | Elzbieta Cristina | Person | Self [birth year] | [address] | | | al/Fam | | 1974 | [phone] | [place], [place] | | | [place] | | | 3 (Home) | [phone] | + +--------+ +--------+ + + Advance Directives + + + + + | Type | Date Recorded | Patient | Explanation | | | | Customer Support Specialist | | + + + + + | Power of | | | | | Lead Javascript Engineer | | | | + + + + + | Advance | | | | | Directive | | | | + + + + +
--- OUTSIDE RECORDS SUMMARY | ~2020-03-23 | XMS | Encounter Summary ---
Demographics + + + | Address | [address] | | | [place] [address] | + + + | Home Phone [...] [place], [place] | | | | | [address] | | + + + + + | Ellie Vang | ECON | Unknown | | + + + + + Care Team Providers + +------+ + | Care Warp Knitter Helper Name | Role | Phone | + +------+ + | Fadi Goodrich DO | PCP | | + +------+ + Reason for Referral PROC - Dept/Practice Procedure (Urgent) +--------+--------+ + + + + | Status | Reason | Specialty | Diagnoses / | Referred By | Referred To | | | | | Procedures | Contact | Contact | +--------+--------+ + + + + | Closed | | Gastroenterol | Diagnoses | Clarke, | Gas Endo | | | | ogy | History of | Ronna, ACNP | [facility] [address] | | | | | Nilesh-en-Y | [address] | | | | | gastric | [address] | [place] | | | | | bypass | [place], [place] | [address], [address] | | | | | Ventral | [address] | floor | | | | | hernia | Phone: | [place], [place] | | | | | without | [phone] | [phone] | | | | | obstruction | Fax: | Phone: | | | | | or gangrene | [phone] | [phone] | | | | | Mixed | | Fax: | | | | | hyperlipidem | | [phone] | | | | | ia Diabetes | | | | | | | mellitus | | | | | | | type 2 | | | | | | | without | | | | |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 | | | | | | | (HCC) | | | | | | | Benign | | | | | | | essential | | | | | | | HTN AMARA | | | | | | | treated with | | | | | | | BiPAP | | | | | | | History of | | | | | | | pulmonary | | | | | | | embolism | | | | | | | Personal | | | | | | | history of | | | | | | | DVT (deep | | | | | | | vein | | | | | | | thrombosis) | | | | | | | Severe | | | | | | | muscle | | | | | | | deconditioni | | | | | | | ng Chronic | | | | | | | diastolic | | | | | | | heart | | | | | | | failure | | | | | | | (HCC) | | | | | | | Morbid | | | | | | | obesity with | | | | | | | BMI of 70 | | | | | | | and over, | | | | | | | adult (HCC) | | | | | | | PCOS | | | | | | | (polycystic | | | | | | | ovarian | | | | | | | syndrome) | | | | | | | Procedures | | | | | | | CONSULT TO | | | | | | | GI PROCEDURE | | | | | | | UNIT: EGD | | | | | | | ME UPPER GI | | | | | | | ENDOSCOPY,BI | | | | | | | OPSY ME | | | | | | | ANES UPR GI | | | | | | | NDSC PX NOS | | | +--------+--------+ + + + + Reason for Visit + + + | Reason | Comments | + + + | Postoperative visit | | + + + Encounter Details +--------+---------+ + + + | Date | Type | Department | Care Team | Description | +--------+---------+ + + + | 11/01/ | Office | Digestive [facility] | Ronna Clarke, | History of Nilesh-en-Y | | 2018 | Visit | Center at [facility] [address] | ACNP [address] | gastric bypass | | | | [address] | [address] [facility], [place] | (Primary Dx); | | | | for Health and | [address] | Ventral hernia | | | | Healing, [address] | [phone] | without obstruction | | | | [place], [place] | | or gangrene; Mixed | | | | [phone] | | hyperlipidemia; | | | | | | 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| | 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); | | | | | | Benign essential | | | | | | HTN; AMARA treated | | | | | | with BiPAP; History | | | | | | of pulmonary | | | | | | embolism; Personal | | | | | | history of DVT (deep | | | | | | vein thrombosis); | | | | | | Severe muscle | | | | | | deconditioning; | | | | | | Chronic diastolic | | | | | | heart failure (HCC); | | | | | | Morbid obesity with | | | | | | BMI of 70 and over, | | | | | | adult (HCC); PCOS | | | | | | (polycystic ovarian | | | | | | syndrome) | +--------+---------+ + + + Social History [...] + + + | Blood Pressure | 125/83 | 05/27/2018 3:14 PM | | | | | PDT | | + + + + + | Pulse | 110 | 05/27/2018 3:14 PM | | | | | PDT | | + + + + + | Temperature | 36.8 C (98.2 F) | 05/27/2018 3:14 PM | | | | | PDT | | + + + + + | Respiratory Rate | 18 | 05/27/2018 3:14 PM | | | | | PDT | | + + + + + | Oxygen Saturation | - | - | | + + + + + | Inhaled Oxygen | - | - | | | Concentration | | | | + + + + + | Weight | 144.7 kg (319 lb) | 05/27/2018 3:14 PM | | | | | PDT | | + + + + + | Height | 149.9 cm (4' 11") | 05/27/2018 3:14 PM | | | | | PDT | | + + + + + | Body Mass Index | 64.43 | 05/27/2018 3:14 PM | | | | | PDT [...] of this encounter Patient Instructions Patient Instructions Ronna Clarke ACNP - 05/27/2018 3:05 PM PDTAssessment/Plan: 1. S/P Nilesh en y gastric bypass, doing poorly at 3 months post op with persistent nausea, v omiting and abdominal pain +obtain UGI, EGD +start promethazine 12.5 every 6 hrs as needed for nausea & vomting +CBC, CMP, B12, PTH, vit D, ferritin, B1, TBIC & iron- will notify of results +Continue with supplements as directed, watch protein levels, be sure to get 60 gms daily, be sure to take in 64 oz of water daily. Discussed specific supplements +Discussed calorie counting and protein counting. Tracking protein +Discussed diet choices, healthy foods, ways to increase protein and iron, offered RD visit ; Today. +Discussed exercise, types of exercise: walking + patient is willing to comply with the post-operative treatment plan 2. Altered Intestinal absorption, s/p gastric surgery, potential for B12 deficiency, Calciu m malabsorption, protein malabsorption and iron deficiencies. Offered lab at 3 mos, 6 mos an d yearly visits. 3. B12 nutritional deficiency- pt has limited portion sizes, area of stomach where b12 abso rbed is now partially removed or bypassed. Offered lab at 3 mos, 6 mos and yearly visits. 4. Vitamin D deficiency, pt has history of deficiency, taking supplements, will need to be monitored regularly. Potential for elevated PTH if Vit D and calcium absorption are not opti mized. Offered lab at 3 mos, 6 mos and yearly visits. 5. AMARA: using BiPAP 6. GERD: resolved 7. Hyperlipidemia: NA 8. HTN: NA 9. Diabetes: taking metformin, CBG's approx 92 10. Yeast infections under skin folds-using powder See PCM for adjusting any other medications. Call if any abd pain, n/v/d or other issues. E R for severe pain. Encouraged pt to F/u at one months post op. Pt agrees to POC and will call or send [employer] message if any issues. documented in this encounter Progress Notes Ronna Clarke ACNP - 05/27/2018 3:05 PM PDTFormatting of this note might be different fr om the original. BARIATRIC FOLLOW-UP Elzbieta Cristina is a 43 y.o. patient who underwent a Nilesh en y gastric bypass 03/01/18. Her last clinic visit was 04/01/18. She is being more active-walking. She has been taking all supp lements. She is trying to get 60 gms protein daily and 64 oz water daily. She has been vomit ing since 3 weeks post op, nauseated and having epigastric abdominal pain. Her PCP sent her to the ED for fluids and antiemetics which made her feel better. She states that the zofran doesn't help with her nausea. She is not taking anything for pain and is asking for pain med ication. She is taking her regular medications, but is having difficulty with some of the la rger pills. She is cutting them in half. She smells like cigarette smoke, her mother smokes , but according to Elzbieta she is cutting back. She has a large ventral hernia that has not be en repaired. She denies heartburn and takes TUMs, she does not take a PPI or H2 lee. Last office visit reviewed. Op-report reviewed. Labs reviewed. Weight 372--> 319 (total lb weight loss) BP 125/83 | Pulse 110 | Temp (Src) 36.8 C (98.2 F) (Oral) | RR 18 | Ht 1.499 m (4' 11") | Wt 144.7 kg (319 lb) | BMI 64.43 kg/(m^2) ALLERGIES: Allergies Allergen Reactions Amoxicillin Benadrilina [Diphenhydramine Hcl] Hives Parlodel [Bromocriptine] Unknown Blood clots Penicillin Hives Current Outpatient Prescriptions: ascorbic acid (VITAMIN C) 500 mg Oral tablet, Take 500 mg by mouth once daily. , Disp: , Rfl: aspirin EC 81 mg oral tablet,delayed release (DR/EC), Take 81 mg by mouth once daily., Disp : , Rfl: atenolol 25 mg oral tablet, Take 25 mg by mouth two times daily. , Disp: , Rfl: buprenorphine HCl 2 mg sublingual tablet, sublingual, Place under tongue once daily., Disp: , Rfl: CALCIUM CRB&VDB-C8-UZX75-GENIS ORAL, Take 2 tablets by mouth two times daily., Disp: , Rfl: cyanocobalamin (vitamin B-12) 5,000 mcg oral tablet, IR and ER, biphasic, Take by mouth., D isp: , Rfl: docusate sodium (STOOL SOFTENER ORAL), Take 200 mg by mouth., Disp: , Rfl: ergocalciferol (VITAMIN D2) 50,000 unit oral capsule, Take 50,000 Units by mouth twice week ly (on Thursday and )., Disp: , Rfl: FA/mv,Ca,iron,min/lycopene/lut (MULTIVITAL ORAL), Take by mouth., Disp: , Rfl: Ferrous Gluconate 324 mg total salt (38 mg elemental iron) oral tablet, Take 1 tablet by mo ut three times daily., Disp: 90 tablet, Rfl: 3 FLUoxetine 20 mg oral tablet, Take 60 mg by mouth once daily at bedtime., Disp: , Rfl: gabapentin 300 mg oral capsule, Take 300 mg by mouth four times daily., Disp: , Rfl: hydrOXYzine pamoate 25 mg oral capsule, Take 25 mg by mouth every four hours as needed., Di sp: , Rfl: Lactobac 40/Bifido 3/S.thermop (PROBIOTIC ORAL), Take by mouth., Disp: , Rfl: magnesium oxide 400 mg oral tablet, Take 400 mg by mouth once daily., Disp: , Rfl: metFORMIN 1,000 mg oral tablet, See directions below, Disp: , Rfl: OLANZapine 15 mg oral tablet, Take 30 mg by mouth once daily at bedtime., Disp: , Rfl: ondansetron ODT 4 mg oral tablet,disintegrating, Dissolve 1 tablet on tongue and swallow ev eileen six hours as needed for nausea/vomiting., Disp: 30 tablet, Rfl: 1 phentermine 37.5 mg oral tablet, Take 37.5 mg by mouth once daily in the morning. Administe r before breakfast., Disp: , Rfl: piroxicam 10 mg oral capsule, Take 10 mg by mouth once daily., Disp: , Rfl: potassium chloride SR 20 mEq oral tablet,ER particles/crystals, Take 2 tablets by mouth two times daily. (Patient taking differently: Take 60 mEq by mouth four times daily. ), Disp: 1 20 tablet, Rfl: 0 promethazine 25 mg oral tablet, Take 0.5 tablets by mouth four times daily as needed for na usea/vomiting. Indications: Post-Operative Nausea and Vomiting, Disp: 60 tablet, Rfl: 2 spironolactone 50 mg oral tablet, Take 50 mg by mouth once daily., Disp: , Rfl: thyroid (ARMOUR THYROID) 30 mg oral tablet tab, Take 30 mg by mouth once daily., Disp: , Rf l: topiramate 200 mg oral tablet, Take 50 mg by mouth two times daily. Indications: Migraine P revention, Disp: , Rfl: torsemide 100 mg oral tablet, Take 0.5 tablets by mouth two times daily. Resume half dose f or first week post opertative, Disp: , Rfl: traZODone 150 mg Oral tablet, Take 150 mg by mouth once daily at bedtime. , Disp: , Rfl: TRESIBA FLEXTOUCH U-100 100 unit/mL (3 mL) subcutaneous insulin pen, Inject 28 Units under the skin (SUBC) once daily with dinner., Disp: , Rfl: History: Past Medical History: Diagnosis Date Abdominal pain [...] index of 70 and over in adult ([facility]) Myalgia and myositis Nausea Neck pain Numbness Osteoarthritis of knee Palpitations Pneumonia Shortness of breath Staphylococcal infection Stroke ([facility]) TIA (transient ischemic attack) due to Bromocriptine Tinea corporis UTI (urinary tract infection) Past Surgical History Procedure Laterality Date Tonsillectomy and adenoidectomy Appendectomy, open 2010 Umbilical hernia repair 2010 Treatment of ankle fracture with screws remaining Incision and drainage of wound abscess x2 midline transverse wound s/p open appendectomy 2010 Ventral hernia repair 10/2012 Dr. Andie Brian Incisional hernia repair 03/01/2015 [facility]/ Dr. Cantu. Primary fascial closure and scar excision Lap gastric byp, and nilesh-en-y gastroenterostomy w/ nilesh limb 150 cm or less 8 [facility] Social History Social History Marital status: Single Spouse name: N/A Number of children: 1 Years of education: N/A Occupational History disabled None Social History Main Topics Smoking status: Former Smoker Smokeless tobacco: Never Used Alcohol use No Drug use: No Sexual activity: Not on file Social History Narrative Updated 11/09/15 She lives in [place] with her mother and her sister (also her caregiver) lives in an [facility] rtment/duplex below. She has 2 grandchildren (age 4 and 7) who live with her daughter and son-in-law Her boyfriend lives in [place] HFpEF, DM2, HTN, Sleep Apnea (unable to tolerate CPAP), Hypothyroidism, Severe Obesity ([facility] max weight 495 lbs) Last seen by Dr Franks on 06/12/2017 with the following notes: "Assessment: 1) HFpEF: This is currently being managed well by her primary care doctor with diuretics and maintenance of her massive weight loss. Further weight loss following a bariatric proced ure would improve this even more. 2) T2 Diabetes: Her A1c had been doing much better now. Will continue present management. 3) Morbid obesity: She has reached maximal medical weight loss 115 pounds from her baselin e weight. I will speak with the bariatric surgery program here and refer her to our electric needle specialist who also has expertise in physical activity for evaluation and rec ommendations regarding activity management prior to bariatric surgery. 4) Hypothyroidism: TSH stable, will continue to monitor yearly. Plan: 1) Continue healthy diet and activity as tolerated 2) Continue management of her heart failure by her PCP 3) referral to [facility] regarding physical activity 4) discussed with bariatric surgery team regarding keeping her on track for ga stric bypass operation 5) Continue phentermine 37.5 mg [...] are no prior exams available for comparison Family History Problem Relation Heart Attack Father Diabetes Mother Alcohol/Drug Other Alcoholism in mother & father Hypertension Other M&F Asthma Other Father, brother, daughters Lung Disease Other Father Obesity Other M&F&Sister Diabetes Other Mother Arthritis Other M&F Autoimmune Disease Sister lupus Bariatric Medications: MVI with iron twice daily: yes Calcium citrate 1500mg daily: yes B12 500mcg SL daily or monthly shot: yes H2RB/PPI daily: no Actigall 300 BID: no Narcotics: yes Symptoms: Nausea: Multiple times per day Dysphagia: Multiple times per day Vomiting: Multiple times per day Heartburn: Multiple times per day Abd Pain: Multiple times per day Constipation: None Diarrhea: 6-8 times per week Exam General- Alert and oriented x4, WD, WN, NAD, Obese, well appearing Well hydrated: dry mucous membranes Lungs: regular and even excursion, no audible wheezes Card/Circ: S1,S2, RRR, no R, M, G. Abd - Soft, NR, NG, mid-epigastric tenderness, reducible ventral hernia Assessment/Plan: 1. S/P Nilesh en y gastric bypass, doing poorly at 3 months post op with persistent nausea, v omiting and abdominal pain possible hernia pain vs. GJ stricture vs. gastric ulcer +obtain UGI, EGD +start promethazine 12.5 every 6 hrs as needed for nausea & vomting +CBC, CMP, B12, PTH, vit D, ferritin, B1, TBIC & iron- will notify of results +Continue with supplements as directed, watch protein levels, be sure to get 60 gms daily, be sure to take in 64 oz of water daily. Discussed specific supplements +Discussed calorie counting and protein counting. Tracking protein +Discussed diet choices, healthy foods, ways to increase protein and iron, offered RD visit ; Today. +Discussed exercise, types of exercise: walking + patient is willing to comply with the post-operative treatment plan 2. Altered Intestinal absorption, s/p gastric surgery, potential for B12 deficiency, Calciu m malabsorption, protein malabsorption and iron deficiencies. Offered lab at 3 mos, 6 mos an d yearly visits. 3. B12 nutritional deficiency- pt has limited portion sizes, area of stomach where b12 abso rbed is now partially removed or bypassed. Offered lab at 3 mos, 6 mos and yearly visits. 4. Vitamin D deficiency, pt has history of deficiency, taking supplements, will need to be monitored regularly. Potential for elevated PTH if Vit D and calcium absorption are not opti mized. Offered lab at 3 mos, 6 mos and yearly visits. 5. AMARA: using BiPAP 6. GERD: resolved 7. Hyperlipidemia: NA 8. HTN: NA 9. Diabetes: taking metformin, CBG's approx 92 10. Yeast infections under skin folds-using powder See PCM for adjusting any other medications. Call if any abd pain, n/v/d or other issues. E R for severe pain. Encouraged pt to F/u at one month post op. Pt agrees to POC and will call or send [employer] essage if any issues. Start time 15:20, end time 15:45. I spent a total of 25 minutes face to face with this pat ient. Over 50% of visit was in counseling. ~ 15 minutes of additional time spent reviewing chart prior to visit and documenting after this visit. Ronna SANTOSP MANAGER LOAN Bariatric Surgery Nurse Practitioner [facility] | [address] | [place], [place] | [address] | documented in this e ncounter Plan of Treatment +--------+ + + + + | Date | Type | Specialty | Care Team | Description | +--------+ + + + + | 04/04/ | Telephone-S | Surgery | Orquidea Cristobal, | | | 2019 | cheduled | | MANAGER LOAN [address] | | | | | | [place], [place] | | | | | | [address] | | | | | | [phone] | | | | | | | | +--------+ + + + + documented as of this encounter Results X-RAY MIRIAM CASTELLON (06/07/2018 9:47 AM PST) + + | Specimen | + + | | + + + + + | Narrative | Performed At | + + + | EXAM: Esophagram with banquet prep cook radiograph HISTORY: RYGB 03/01/2018, | [facility] | | vomiting/pain ever since COMPARISON: 04/27/2018 CT TECHNIQUE: | RADIOLOGY VOICE | | School Clerk radiograph was performed. Single contrast exam of the esophagus, | RECOGNITION 2 | | gastric pouch, and gastrojejunostomy in upright positioning. | | | Radiation dose reduction technique was maximized where appropriate | | | using pulsed fluoroscopy and fluoro-store images. Fluoro Time 57 | | | second(s) FINDINGS: School Clerk shows stone in the upper pole of the | | | left kidney. Otherwise unremarkable bowel gas Normal esophageal | | | motility. No hiatal hernia. Normal filling of the gastric pouch. | | | Stenosis of the gastrojejunostomy anastomosis; thin barium liquid | | | easily pass through the anastomosis, but the barium tablet remained in | | | the gastric pouch. IMPRESSION: Stenosis at the site of the | | | gastrojejunostomy. I have personally reviewed the images and, if | | | necessary, edited the report. I agree with the report as now | | | presented. Final signature: Zaheer Evans MD 06/07/2018 | | | 11:17 AM Preliminary: Evy Ramirez MD Dictation | | | initiated: Evy Ramirez MD 06/07/2018 10:04 AM | | + + + + + | Procedure Note | + + | Service Account, [employer] Res In Interface - 06/07/2018 11:18 AM PST EXAM: Esophagram | | with banquet prep cook radiograph HISTORY: RYGB 03/01/2018, vomiting/pain ever since COMPARISON: | | 04/27/2018 CT TECHNIQUE: School Clerk radiograph was performed. Single contrast exam of the | | esophagus, gastric pouch, and gastrojejunostomy in upright positioning. Radiation dose | | reduction technique was maximized where appropriate using pulsed fluoroscopy and | | fluoro-store images. Fluoro Time 57 second(s) FINDINGS:School Clerk shows stone in the upper | | pole of the left kidney. Otherwise unremarkable bowel gas Normal esophageal motility. | | No hiatal hernia. Normal filling of the gastric pouch. Stenosis of the gastrojejunostomy | | anastomosis; thin barium liquid easily pass through the anastomosis, but the barium | | tablet remained in the gastric pouch. IMPRESSION: Stenosis at the site of the | | gastrojejunostomy. I have personally reviewed the images and, if necessary, edited the | | report. I agree with the report as now presented. Final signature: Zaheer Evans MD | | 06/07/2018 11:17 AM Preliminary: Evy Ramirez MD Dictation initiated: Evy Ramirez MD 06/07/2018 10:04 AM | |Normal esophageal motility. No hiatal hernia. Normal filling of the gastric pouch. Stenosis of the gastrojejunostomy anastomosis; thin barium liquid easily pass through the anastomosi s, but the barium tablet remained in the gastric pouch. | | | | | |IMPRESSION: | | | |Stenosis at the site of the gastrojejunostomy. | | | |I have personally reviewed the images and, if necessary, edited the report. I agree with th e report as now presented. | | | |Final signature: Zaheer Evans MD 06/07/2018 11:17 AM | |Preliminary: Evy Ramirez MD | |Dictation initiated: Evy Ramirez MD 06/07/2018 10:04 AM | + + + +---------+ + + | Performing | Address | City/State/Zipcode | Phone Number | | Organization | | | | + +---------+ + + | [facility] | | | | | VOICE RECOGNITION 2 | | | | + +---------+ + + LIPID SET (TRIG, T CHOL, HDL, CALC LDL) (05/27/2018 4:01 PM PDT) + +---------+ + + + | Component | Value | Ref Range | Performed | Pathologist | | | | | At | Signature | + +---------+ + + + | CHOLESTEROL | 142 | <200 mg/dL | [facility] | | | (LAB) | | | LABORATORY | | | | | | SERVICES, | | | | | | CORE | | + +---------+ + + + | TRIGLYCERID | 172 (H) | <150 mg/dL | [facility] | | | ES | | | LABORATORY | | | | | | SERVICES, | | | | | | CORE | | + +---------+ + + + | HDL | 47 | >40 mg/dL | [facility] | | | CHOLESTEROL | | | LABORATORY | | | | | | SERVICES, | | | | | | CORE | | + +---------+ + + + | HDL CMNT | No Hemo | | [facility] | | | | | | LABORATORY | | | | | | SERVICES, | | | | | | CORE | | + +---------+ + + + | LDL | 61 | <100 mg/dL | [facility] | | | CHOLESTEROL | | | LABORATORY | | | , | | | SERVICES, | | | CALCULATED | | | CORE | | + +---------+ + + + | VLDL | 34 (H) | <31 mg/dL | [facility] | | | CHOLESTEROL | | | LABORATORY | | | , | | | SERVICES, | | | CALCULATED | | | CORE | | + +---------+ + + + | NON-HDL | 95 | <130 mg/dL | [facility] | | | CHOLESTEROL | | | LABORATORY | | | | | | SERVICES, | | | | | | CORE | | + +---------+ + + + + + | Specimen | + + | Blood - Blood | | (substance) | + + + + + | Narrative | Performed At | + + + | Cholesterol Reference Range: Desirable: <200 | [facility] | | mg/dL Borderline High: 200 - 239 mg/dL | LABORATORY | | High: >=240 mg/dL LDL Cholesterol | SERVICES, CORE | | Reference Range: Optimal: <100 mg/dL | | | Near Optimal: 100-129 mg/dL Borderline High: 130-159 | | | mg/dL High: 160-189 mg/dL | | | Very High: >=190 mg/dL non-HDL Cholesterol Reference Range: | | | Optimal: <130 mg/dL Near Optimal: | | | 130-159 mg/dL Borderline High: 160-189 mg/dL | | | High: 190-209 mg/dL Very High: | | | >=210 mg/dL Triglyceride Reference Range: | | | Normal: <150 mg/dL Borderline High: 150-199 mg/dL | | | High: 200-499 mg/dL Very High: >=500 mg/dL | | | HDL Reference Range: High Risk: <40 mg/dL | | | Desirable: >=60 mg/dL | | + + + + + + + + | Performing | Address | City/State/Zipcode | Phone Number | | Organization | | | | + + + + + | [email or web address] | [address] | [place] [address] | | | SERVICES, CORE | CL[place]ENCE [address]NER | | | + + + + + HEMOGLOBIN A1C, BLOOD (05/27/2018 4:01 PM PDT) + + + + + + | Component | Value | Ref Range | Performed | Pathologist | | | | | At | Signature | + + + + + + | HEMOGLOBIN | 6.1 (H)Comment: Hgb A1C | <5.7 % | [...] | [facility] | | considered for monitoring termination clerk glycemic control in patients with: | LABORATORY [...] | + + + + + | [email or web address] | [address] | [place] [address] | | | SERVICES, SPECIAL | [address] | | | | IMM + COAG | | | | + + + + + VITAMIN B1, WHOLE BLOOD (05/27/2018 4:01 PM PDT) + + + + + + | Component | Value | Ref Range | Performed | Pathologist | | | | | At | Signature | + + + + + + | VITAMIN B1, | 100Comment: INTERPRETIVE | 70 - 180 nmol/L | [facility] | | | WHOLE | INFORMATION: Vitamin | | REG UNIV | | | BLOOD | B1, Whole Blood This | | PTH - [facility] | | | | assay measures the | | | | | | concentration of | | | | | | thiamine diphosphate | | | | | | (TDP), the primary | | | | | | active form of vitamin | | | | | | B1. Approximately 90 | | | | | | percent of vitamin B1 | | | | | | present in whole blood | | | | | | is TDP. Thiamine and | | | | | | thiamine monophosphate, | | | | | | which comprise the | | | | | | remaining 10 percent, | | | | | | are not measured. Test | | | | | | developed and | | | | | | characteristics | | | | | | determined by [facility] | | | | | | Laboratories. See | | | | | | Compliance Statement B: | | | | | | [employer]/CSPerformed | | | | | | by [employer],[address] | | | | | | Liliana Martinez, [facility] [place] | | | | | | [id number] | | | | | | [phone].[email or web address]. | | | | | | [facility] hospital[facility]el MD, | | | | | | Lab. Director | | | | + + + + + + + + | Specimen | + + | Blood - Blood | | (substance) | + + + + + + + | Performing | Address | City/State/Zipcode | Phone Number | | Organization | | | | + + + + + | [facility] | [address] | [place], [place] | | | [facility] | | [address] | | + + + + + COMPLETE METABOLIC SET (NA,K,CL,CO2,BUN,CREAT,GLUC,CA,AST,ALT,BILI TOTAL,ALK PHOS,ALB,PROT TOTAL) (05/27/2018 4:01 PM PDT) + + + + + + | Component | Value | Ref Range | Performed | Pathologist | | | | | At | Signature | + + + + + + | GLUCOSE, | 123 (H) | 70 - 99 [...] + + + + | CREATININE | 0.85 [...] | | | LABORATORY | | | JAPANESE | | | SERVICES, | | | [...] + + + + | POTASSIUM, | 3.0 (L) | 3.4 - 5.0 | [facility] | | | PLASMA | | mmol/L | LABORATORY | | | (LAB) | | | SERVICES, | | | | | | CORE | | + + + + + + | CHLORIDE, | 102 | 97 - 108 mmol/L | [facility] | | | PLASMA | | | LABORATORY | | | (LAB) | | | SERVICES, | | | | | | CORE | | + + + + + + | TOTAL CO2, | 27 | 21 - 32 mmol/L | [facility] | | | PLASMA | | | LABORATORY | | | (LAB) | | | SERVICES, | | | | | | CORE | | + + + + + + | CALCIUM, | 9.7 | 8.6 - 10.2 | [...] + + + + | BILIRUBIN | 0.6 | 0.3 - 1.2 mg/dL | [facility] | | | TOTAL | | | LABORATORY | | | | | | SERVICES, | | | | | | CORE | | + + + + + + | TOTAL | 8.5 (H) | 6.4 - 8.2 g/dL | [facility] | | | PROTEIN, | | | LABORATORY | | | PLASMA | | | SERVICES, | | | (LAB) | | | CORE | | + + + + + + | ALBUMIN, | 3.2 (L) | 3.5 - 4.7 g/dL | [facility] | | | PLASMA | | | LABORATORY | | | (LAB) | | | SERVICES, | | | | | | CORE | | + + + + + + | ALK PHOS | 128 (H) | 42 - 98 U/L | [facility] | | | | | | LABORATORY | | | | | | SERVICES, | | | | | | CORE | | + + + + + + | AST(SGOT) | 34 | <=41 U/L | [facility] | | | | | | LABORATORY | | | | | | SERVICES, | | | | | | CORE | | + + + + + + | ALT (SGPT) | 36 | <=60 U/L | [facility] | | | | | | LABORATORY | | | | | | SERVICES, | | | | | | CORE | | + + + + + + | ANION GAP | 11 | 4 - 11 mmol/L | [facility] | | | | | | LABORATORY | | | | | | SERVICES, | | | | | | CORE | | + + + + + + | ANION | 13 (H) | 4 - 11 mmol/L | [...] | + + + + + | [facility] | [address] | [place] [address] | | | SERVICES, CORE | [address] | | | + + + + + IRON AND TIBC (05/27/2018 4:01 PM PDT) + +-------+ + + + | Component | Value | Ref Range | Performed | Pathologist | | | | | At | Signature | + +-------+ + + + | IRON | 72 | 30 - 160 ug/dL | [facility] | | | | | | LABORATORY | | | | | | SERVICES, | | | | | | CORE | | + +-------+ + + + | IRON BIND | 308 | 240 - 450 ug/dL | [facility] | | | CAP | | | LABORATORY | | | | | | SERVICES, | | | | | | CORE | | + +-------+ + + + | % | 23 | 20 - 50 % | [facility] | | | SATURATION | | | LABORATORY | | | TRANSFERRIN | | | SERVICES, | | | , | | | CORE | | + +-------+ + + + + + | Specimen | + + | Blood - Blood | | (substance) | + + + + + + + | Performing | Address | City/State/Zipcode | Phone Number | | Organization | | | | + + + + + | [facility] | [address] | [place] [address] | | | SERVICES, CORE | [address] | | | + + + + + VITAMIN B-12 (05/27/2018 4:01 PM PDT) + + + + + + | Component | Value | Ref Range | Performed | Pathologist | | | | | At | Signature | + + + + + + | VITAMIN B12 | 2,448 (H) | 193 - 986 pg/mL | [facility] | | | | | [...] | + + + + + | [email or web address] | [address] | [place] [address] | | | SERVICES, CORE | [address] | | | + + + + + FERRITIN (05/27/2018 4:01 PM PDT) + + + + + + | Component | Value | Ref Range | Performed | Pathologist | | | | | At | Signature | + + + + + + | FERRITIN | 49 (L)Comment: Male and | 50 - 200 ng/mL | [facility] | | | | Female >18 years: | | LABORATORY | | | | <20 ng/mL: | | SERVICES, | | | | Consistant with iron | | CORE | | | | deficiency 21-50 | | | | | | ng/mL: Possible | | | | | | iron deficiency 51-99 | | | | | | ng/mL: Iron | | | | | | deficiency unlikely | | | | | | unless inflammation | | | | | | present or | | | | | | patient | | | | | | >65 years of age | | | | | | 100-200 ng/mL: | | | | | | Normal, not consistent | | | | | | with iron deficiency | | | | | | >200 ng/mL: If | | | | | | transferrin saturation | | | | | | >45%, consider | | | | | | hemochromatosis | | | | + + + + + + + + | Specimen | + + | Blood - Blood | | (substance) | + + + + + + + | Performing | Address | City/State/Zipcode | Phone Number | | Organization | | | | + + + + + | [facility] | [address] | [place] [address] | | | SERVICES, CORE | [address] | | | + + + + + PTH, SERUM (05/27/2018 4:01 PM PDT) + +---------+ + + + | Component | Value | Ref Range | Performed | Pathologist | | | | | At | Signature | + +---------+ + + + | PTH, SERUM | 206 (H) | 18 - 88 pg/mL | [facility] | | | | | | LABORATORY | | | | | | SERVICES, | | | | | | CORE | | + +---------+ + + + + + | Specimen | + + | Blood - Blood | | (substance) | + + + + + | Narrative | Performed At | + + + | New Reference Range effective 17. | [facility] | | | LABORATORY | | | SERVICES, CORE | + + + + + + + + | Performing | Address | City/State/Zipcode | Phone Number | | Organization | | | | + + + + + | [facility] | [address] | [place] [address] | | | SERVICES, CORE | [address] | | | + + + + + VITAMIN D, 25-HYDROXY, SERUM (05/27/2018 4:01 PM PDT) + + + + + + | Component | Value | Ref Range | Performed | Pathologist | | | | | At | Signature | + + + + + + | VITAMIN D | 88.6 (H) | 30 - 80 ng/mL | [facility] | | | 25 HYDROXY | | | LABORATORY | | | | | | SERVICES, | | | | | | CORE | | + + + + + + + + | Specimen | + + | Blood - Blood | | (substance) | + + + + + | Narrative | Performed At | + + + | Reference Interval: 0-18years: Deficiency: <20 ng/mL | [facility] | | Optimum level: >or=20 ng/mL | LABORATORY | | >18years: Deficiency: <20 | SERVICES, CORE | | ng/mL Insufficiency: 20-29 ng/mL | | | Optimum Level: 30-80 ng/mL High: | | | 81-150 ng/ml Toxic: >150 ng/mL | | + + + + + + + + | Performing | Address | City/State/Zipcode | Phone Number | | Organization | | | | + + + + + | [facility] | [address] | [place] [address] | | | SERVICES, CORE | [address] | | | + + + + + documented in this encounter Visit Diagnoses + + | Diagnosis | + + | History of Nilesh-en-Y gastric bypass - Primary Bariatric surgery status | + + | Ventral hernia without obstruction or gangrene Ventral hernia, unspecified, without | | mention of obstruction or gangrene | + + | Mixed hyperlipidemia | + + | Diabetes mellitus type 2 without retinopathy (HCC) Type II or unspecified type |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 without mention of complication, not stated as uncontrolled | + + | Benign essential HTN Essential hypertension, benign | + + | AMARA treated with BiPAP | + + | History of pulmonary embolism Personal history of pulmonary embolism | + + | Personal history of DVT (deep vein thrombosis) Personal history of venous thrombosis | | and embolism | + + | Severe muscle deconditioning Other specific muscle disorders | + + | Chronic diastolic heart failure (HCC) Chronic diastolic heart failure | + + | Morbid obesity with BMI of 70 and over, adult (HCC) | + + | PCOS (polycystic ovarian syndrome) Polycystic ovaries | + + documented in this encounter
--- OUTSIDE RECORDS SUMMARY | ~2020-03-23 | XMS | Encounter Summary ---
Demographics + + + | Address | [address] | | | [place] [address] | + + + | Home Phone | | + + + | Preferred Language | Unknown | + + + | Marital Status | Single | + + + | Anabaptism Affiliation | NON | + + + [...] + | Katalina Padilla | ECON | [address] | | | | | [place], [place] | | | | | [address] | | + + + + + | Ellie Vang | ECON | Unknown | | + + + + + Care Team Providers + +------+ + | Care Information Security Risk Analyst Name | Role | Phone | + +------+ + | Fadi Goodrich DO | PCP | | + +------+ + Encounter Details +--------+ + + + + | Date | Type | Department | Care Team | Description | +--------+ + + + + | 06/10/ | Documentati | Dig[facility]ive [facility] | Kathy Feldman, | | | 2012 | on | Center at [facility] [address] | [employer] [address] | | | | | [address] [facility] | [facility] [address] | | | | | for Health and | [place], [place] | | | | | [facility] [address] | [address] | | | | | [place], [place] | [phone] | | | | | [address] | | | | | | [phone] | | | +--------+ + + + [...] | | 2019 | sherrill | | [employer] [address] | | | | | | [place], [place] | | | | | | [address] | | | | | | [phone] | | | | | | | | +--------+ + + + + documented as of this encounter Visit Diagnoses Not on filedocumented in this encounter"
--- OUTSIDE RECORDS SUMMARY | ~2020-03-23 | XMS | Encounter Summary ---
Demographics + + + | Address | [address] | | | [place] [address] | + + + | Home Phone | | + + + | Preferred Language | Unknown | + + + | Marital Status | Single | + + + | Worship Affiliation | NON | + + + [...] + | Katalina Padilla | ECON | [address] | | | | | [place], [place] | | | | | [address] | | + + + + + | Ellie Vang | ECON | Unknown | | + + + + + Care Team Providers + +------+ + | Care Blood Bank Calendar Control Clerk Name | Role | Phone | + +------+ + | Kenyatta Cardenas MD | PCP | | + +------+ + Reason for Visit + +--------+ + | Reason | Onset | Comments | | | Date | | + +--------+ + | Medical Records | 09/27/ | | | Review | 2020 | | + +--------+ + Encounter Details +--------+ + + + + | Date | Type | Department | Care Team | Description | +--------+ + + + + | 09/27/ | Abstract | Dig[facility]ive [facility] | [facility] | Medical Records | | 2020 | | Center [place] [address] [address] | [address] | Review | | | | [facility] | [facility] | | | | | [facility] and | [place], [place] | | | | | [place] [address] | [address] | | | | | [place], [place] | [phone] | | | | | [address] | | | | | | [phone] | | | +--------+ + + + [...] | | 2019 | sherrill | | [employer] [address] | | | | | | [place], [place] | | | | | | [address] | | | | | | [phone] | | | | | | | | +--------+ + + + + documented as of this encounter Visit Diagnoses Not on filedocumented in this encounter"
--- OUTSIDE RECORDS SUMMARY | ~2020-03-23 | XMS | Encounter Summary ---
Demographics + + + | Address | [address] | | | [place] [address] | + + + | Home Phone | | + + + | Preferred Language | Unknown | + + + | Marital Status | Single | + + + | Gnosticism Affiliation | NON | + + + [...] + | Katalina Padilla | ECON | [address] | | | | | [place], [place] | | | | | [address] | | + + + + + | Ellie Vang | ECON | Unknown | | + + + + + Care Team Providers + +------+ + | Care Hide Measuring Machine Operator Name | Role | Phone | + +------+ + | Fadi Goordich DO | PCP | | + +------+ [...] | +--------+ + + + + | 06/23/ | Hospital | [facility] [address] | Kaleb Wilcox MD | | | 2017 | Encounter | [address] | [address] | | | | | [address] | [place], [place] | | | | | [place], | [address] | | | | | [place] [address] | [phone] | | | | | [phone] | | | +--------+ + + + [...] + + + | Blood Pressure | 108/52 | 06/23/2018 5:15 PM | | | | | PST | | + + + + + | Pulse | 83 | 06/23/2018 5:15 PM | | | | | PST | | + + + + + | Temperature | 36.4 C (97.5 F) | 06/23/2018 5:15 PM | | | | | PST | | + + + + + | Respiratory Rate | 25 | 06/23/2018 5:15 PM | | | | | PST | | + + + + + | Oxygen Saturation | 99% | 06/23/2018 5:15 PM | | | | | PST | | + + + + + | Inhaled Oxygen | - | - | | | Concentration | | | | + + + + + | Weight | 143.2 kg (315 lb | 06/23/2018 1:32 PM | | | | 11.2 oz) | PST | | + + + + + | Height | - | - | | + + + + + | Body Mass Index | 63.76 | 06/16/2018 3:28 PM | | | [...] of this encounter Discharge Instructions Instructions Keerthi Bill RN - 06/23/2018Home Care Instructions after EGD (Upper Endo scopy) You may resume your normal diet and [...] department toll free ext. [phone] or After business hours or on weekends and holiday Hospital Video Coordinator toll free [phone] ext. [phone] and have the GI doctor director of undergraduate admissions paged. The provider who performed your procedure is: Dr. Wilcox Results of your EGD: Dilation performed. You may resume your regular diet. Follow up Appointments with: Follow up with Dr. Pandey in bariatric surgery, thank you for choosing [facility]! Your primary care provider or referring provider will receive copies of the procedure repor t and all the pathology reports with recommendations for treatment if needed. If Noted above that biopsies were taken or polyps [...] | | 0 | | | | [id number] | mouth two times | | | [...] documented as of this encounter Progress Notes Kaleb Wilcox MD - 06/23/2018 3:48 PM PSTBrief GI Procedure Note Procedure: upper endoscopy with dilation Indication: nausea/vomiting, status post Frandy en Y gastric bypass Sedation: General anesthesia in SOR Findings: Normal esophagus Normal appearing gastric pouch Gastro-jejunal anastomosis at 48 cm with visible staple and very slight stenosis. Endoscope passed through anastomosis without any resistance. Normal jejunum. Maneuver: dilation was performed with TTS balloon to 16 mm with expected mucosal tear and m ild bleeding. Post dilation appearance was minimally improved. Recommendations: Resume diet. Discharge patient home with escort. Can repeat EGD in 1-2 weeks for retreatment if symptoms persist. aKaleb whitman MD - 1 08/23/2017 2:35 PM PST PRE PROCEDURE NOTE: MR# [id number] Subjective: Elzbieta Cristina is a 43 y.o. female presents today for upper endoscopy with p ossible dilation. Patient History Reviewed Medications reviewed Pt NPO for 12 hrs. Allergies: Allergies as of 05/31/2018 - Fully Reviewed 05/27/2018 Allergen Reaction Noted Amoxicillin 05/13/1993 Benadrilina [diphenhydramine hcl] Hives 10/07/2012 Parlodel [bromocriptine] Unknown 04/14/2013 Penicillin Hives 01/01/2017 ROS: All others negative. Objective: Vital Signs: BP 116/72 | Pulse 90 | Temp 37.4 C (99.3 F) | Wt 143.2 kg (315 lb 11.2 oz) | SpO2 95% | LMP 06/11/2018 | BMI 63.76 kg/(m^2) Neuro: Patient oriented X3. Mallampati Score: 2 Neck: No significant findings by visual inspection Respiratory: Breathing comfortably Cardiovascular: Regular rate and rhythm Abdomen: + bowel sounds, soft, nontender, nondistended, obese Impression History reviewed, and patient deemed appropriate for planned procedure. ASA Class: 3 Plan Proceed with upper endoscopy. PARQ held and all questions addressed. Consent obtained. See procedure note 06/23/2018 documented in this enc ounter Plan of Treatment +--------+ + + + + | Date | Type | Specialty | Care Team | Description | +--------+ + + + + | 04/04/ | Telephone-S | Surgery | Orquidea Cristobal, | | | 2019 | sherrill | | RESIDENT CARE TECHNICIAN [address] | | | | | | [place], [place] | | | | | | [address] | | | | | | [phone] | | | | | | | | +--------+ + + + + documented as of this encounter Procedures + +--------+ + + + | Procedure Name | Priori | Date/Time | Associated Diagnosis | Comments | | | ty | | | | + +--------+ + + + | EGD | Routin | 06/23/2018 | History of | Results for this | | | e | 3:58 PM | Frandy-en-Y gastric | procedure are in the | | | | PST | bypass Ventral | results section. | | | | | hernia without | | | | | | obstruction or | | | | | | gangrene | | + +--------+ + + + | GI LAB | Electi | 06/23/2018 | Z98.84 | | | ESOPHAGOGASTRODUODEN | ve | 3:10 PM | | | | OSCOPY (EGD) IN [place] | Surgic | PST | | | | | al | | | | + +--------+ + + + | VBG-FULL ABL, POC | Urgent | 06/23/2018 | Iron deficiency | Results for this | | | | 2:11 PM | anemia due to | procedure are in the | | | | PST | chronic blood loss | results section. | + +--------+ + + + | CARDIOLOGY | | 06/23/2018 | | Results for this | | | | 12:00 AM | | procedure are in the | | | | PST | | results section. | + +--------+ + + + documented in this encounter Results EGD (06/23/2018 3:58 PM PST) + + | Specimen | + + | | + + + +--------- -----+ | Narrative | Performe d At | + +--------- -----+ | MRN: | [id number] | | [id number] Date: 06/23/2018Patient Name: Elzbieta Curtis #: | ENDOSCOP Y | | [id number] of : 1975CSN: [id number] Type: | | | AmbulatoryRoom: SORProcedure: Upper GI | | | endoscopyIndications: Nausea with vomiting, Status post | | | Tcvk-gd-JYxzjgdcdj: KALEB WILCOX MD (Doctor), JOSE | | | NASIM[place], Lower School Spanish Teacher | | | (Lower School Spanish Teacher)Referring MD: DANIELLE GARCÍAPRequestdonya | | | Provider: Medicines: Monitored Anesthesia | | | CareComplications: No immediate complications.Procedure: | | | Pre-Anesthesia Assessment: - | | | ASA Grade Assessment: III - A patient with severe | | | systemic disease. Prior to | | | the procedure, a History and Physical with | | | airway assessment was performed (see patient record), | | | and patient medications and allergies were | | | reviewed. The risks and benefits of the | | | procedure and the sedation options and | | | risks were discussed. All questions were | | | answered and informed consent was obtained. After | | | reviewing the risks and benefits, the patient was | | | deemed in satisfactory condition to | | | undergo the procedure. Immediately | | | prior to administration of medications, the | | | patient was re-assessed for adequacy to receive | | | sedatives. The heart rate, respiratory rate, oxygen | | | saturations, blood pressure, adequacy of | | | pulmonary ventilation, and response to | | | care were monitored throughout the | | | procedure. The physical status of the | | | patient was re-assessed after the procedure. | | | The Olympus GIF-HQ190 Gastroscope #[id number] was | | | introduced through the mouth, and advanced to the | | | second part of duodenum. The upper GI | | | endoscopy was accomplished without | | | difficulty. The patient tolerated the | | | procedure well.Estimated Blood Loss: Estimated blood loss: | | | none.Findings: The esophagus was normal. Evidence of a | | | Frandy-en-Y gastrojejunostomy was found. The gastrojejunal | | | anastomosis was characterized by healthy appearing mucosa, mild | | | stenosis and single visible staple line. This was traversed | | | easily with the endoscope without resistance. The | | | rbktu-ko-mdcoigz limb was characterized by healthy appearing | | | mucosa. A TTS dilator was passed through the scope. Dilation | | | with a 12-13.5-15 mm and a 16-17-18 mm anastomotic balloon | | | dilator was performed to 16 mm with expected mucosal rent/tear. | | | There was minimal improvement in the stenosis. The examined | | | jejunum was normal.Impression: - Normal esophagus. | | | - Frandy-en-Y gastrojejunostomy with | | | gastrojejunal anastomosis characterized | | | by healthy appearing mucosa, visible | | | staple, and mild stenosis. Dilated to 16 mm. | | | - Normal examined jejunum.Recommendation: - Discharge | | | patient to home. - Resume previous diet. | | | - Repeat upper endoscopy in 1-2 weeks | | | for repeat dilation if symptoms | | | persist.KALEB WILCOX MD06/23/2018 5:17:38 PMThis report has been | | | signed electronically.Number of Addenda: 0Note Initiated On: | | | 06/23/2018 3:58 [facility] Letter to: FADI GOODRICH DO | | | - Repeat upper endoscopy in 1-2 weeks for repeat | | | dilation if symptoms persist. | | |KALEB WILCOX MD | | |06/23/2018 5:17:38 PM | | |This report has been signed electronically. | | |Number of Addenda: 0 | | |Note Initiated On: 06/23/2018 3:58 PM | | |CC Letter to: | | | FADI GOODRICH DO | | + +--------- -----+ + +---------+ + + | Performing | Address | City/State/Zipcode | Phone Number | | Organization | | | | + +---------+ + + | [facility] | | | | + +---------+ + + VBG-FULL ABL, POC (06/23/2018 2:11 PM PST) + + + + + + | Component | Value | Ref Range | Performed | Pathologist | | | | | At | Signature | + + + + + + | PH VENOUS, | 7.43 | 7.35 - 7.45 | [facility] - | | | POC | | | [facility] | | | | | | [facility] | | | | | | OF CARE | | | | | | TESTS | | + + + + + + | PO2 VENOUS, | 40 | 30 - 55 mmHg | [facility] - | | | POC | | | [facility] | | | | | | [place] | | | | | | OF CARE | | | | | | TESTS | | + + + + + + | PCO2 | 47 | 35 - 50 mmHg | [facility] - | | | VENOUS, POC | | | [facility] | | | | | | [place] | | | | | | OF CARE | | | | | | TESTS | | + + + + + + | TOTAL | 14.7 | 12.0 - 16.0 | [facility] - | | | HEMOGLOBIN, | | g/dL | [facility] | | | POC | | | [facility] | | | | | | OF CARE | | | | | | TESTS | | + + + + + + | O2 SAT | 75.0 | % | [facility] - | | | VENOUS, POC | | | [facility] | | | | | | [facility] | | | | | | OF CARE | | | | | | TESTS | | + + + + + + | OXYHEMOGLOB | 73.0 | % | [facility] - | | | IN, POC | | | [facility] | | | | | | [facility] | | | | | | OF CARE | | | | | | TESTS | | + + + + + + | HEMATOCRIT, | 45.2 | 36.0 - 46.0 % | [facility] - | | | POC | | | [facility] | | | | | | [facility] | | | | | | OF CARE | | | | | | TESTS | | + + + + + + | POTASSIUM, | 3.7 | 3.4 - 5.0 | [facility] - | | | POC | | mmol/L | [facility] | | | | | | [facility] | | | | | | OF CARE | | | | | | TESTS | | + + + + + + | SODIUM, POC | 143 | 134 - 143 | [facility] - | | | | | mmol/L | [facility] | | | | | | [facility] | | | | | | OF CARE | | | | | | TESTS | | + + + + + + | LEV | 1.22 | 1.14 - 1.32 | [facility] - | | | IONIZED CA, | | mmol/L | [facility] | | | POC | | | [facility] | | | | | | OF CARE | | | | | | TESTS | | + + + + + + | CHLORIDE, | 102 | 97 - 108 mmol/L | [facility] - | | | POC | | | [facility] | | | | | | [facility] | | | | | | OF CARE | | | | | | TESTS | | + + + + + + | GLUCOSE, | 106 (H) | 60 - 99 mg/dL | [facility] - | | | POC | | | [facility] | | | | | | [facility] | | | | | | OF CARE | | | | | | TESTS | | + + + + + + | HCO3 | 31.3 (H) | 22 - 28 mmol/L | [facility] - | | | VENOUS, POC | | | [facility] | | | | | | [place] | | | | | | OF CARE | | | | | | TESTS | | + + + + + + | BASE EXCESS | 7.0 | | [facility] - | | | VENOUS, | | | [facility] | | | POC | | | [facility] | | | | | | OF CARE | | | | | | TESTS | | + + + + + + | LACTATE | 1.3 | 0.5 - 2.0 | [facility] - | | | VENOUS, POC | | mmol/L | [facility] | | | | | | [place] | | | | | | OF CARE | | | | | | TESTS | | + + + + + + | METHEMOGLOB | 0.8 | % | [facility] - | | | IN, POC | | | [facility] | | | | | | [place] | | | | | | OF CARE | | | | | | TESTS | | + + + + + + | PAT TEMP | 37.0 | | [facility] - | | | [...] + + + | [facility] | [address] | [place], [place] | | | [facility] | [address] | [address] | | | TESTS | | | | + + + + + CARDIOLOGY (06/23/2018 12:00 AM PST) + + + | Narrative | Performed At | + + + | | | + + + documented in this encounter Visit Diagnoses + + | Diagnosis | + + | Iron deficiency anemia due to chronic blood loss - Primary Iron deficiency anemia | | secondary to blood loss (chronic) | + + | History of Frandy-en-Y gastric bypass Bariatric surgery status | + + | Ventral hernia without obstruction or gangrene Ventral hernia, unspecified, without | | mention of obstruction or gangrene | + + documented in this encounter Administered Medications + +--------+ +--------+------+------+ | Medication Order | MAR | Action | Dose | Rate | Site | | | Action | Date | | | | + +--------+ +--------+------+------+ | fentaNYL (SUBLIMAZE) injection | Given | 06/23/20 | 25 mcg | | | | 25 mcg 25 mcg, intravenous, | | 18 4:00 | | | | | POSTPROCEDURE PRN, 8 doses, | | PM PST | | | | | Starting Thu06/23/18 at 1532, | | | | | | | Until [facility] 06/24/18 at 0027, | | | | | | | severe pain while in Phase I | | | | | | | Recovery | | | | | | + +--------+ +--------+------+------+ +-------+ +--------+---+---+ | Given | 06/23/20 | 25 mcg | | | | | 18 3:58 | | | | | | PM PST | | | | +-------+ +--------+---+---+ | Given | 06/23/20 | 25 mcg | | | | | 18 3:55 | | | | | | PM PST | | | | +-------+ +--------+---+---+ + +---+ | | | + +---+ | lidocaine viscous (XYLOCAINE | | | VISCOUS) 2 % mucosal solution 15 | | | mL 15 mL, oral, INTRAPROCEDURE | | | PRN, Starting Thu06/23/18 at | | | 1324, Until Thu06/24/18 at 0027, | | | sore oropharynx | | + +---+ | | | + +---+ | meperidine (DEMEROL) injection | | | 25 mg 25 mg, intravenous, | | | POSTPROCEDURE PRN, 1 dose, | | | Starting Thu06/23/18 at 1532, | | | Until Thu06/24/18 at 0027, | | | shivering | | + +---+ | | | + +---+ | naloxone (NARCAN) injection | | | intravenous, POSTPROCEDURE PRN, | | | Starting Thu06/23/18 at 1532, | | | Until [facility] 06/24/18 at 0027, | | | hypopnea | | + +---+ | | | + +---+ | ondansetron (ZOFRAN) injection | | | 4 mg 4 mg, intravenous, | | | POSTPROCEDURE PRN, 1 dose, | | | Starting [facility] 06/23/18 at 1532, | | | Until [facility] 06/24/18 at 0027, | | | nausea/vomiting (greater than 6 | | | hours post-operatively) | | + +---+ | | | + +---+ + +-------+ +---------+---+---+ | promethazine (PHENERGAN) | Given | 06/23/20 | 6.25 mg | | | | injection 6.25-12.5 mg 6.25-12.5 | | 18 4:28 | | | | | mg, intravenous, POSTPROCEDURE | | PM PST | | | | | PRN, 1 dose, Starting [facility] | | | | | | | 06/23/18 at 1532, Until [facility] | | | | | | | 06/23/18 at 1628, | | | | | | | nausea/vomiting, 1st line | | | | | | + +-------+ +---------+---+---+ + +---+ | | | + +---+ | simethicone (MYLICON) | | | suspension 3.333 mg 3.333 mg | | | (rounded from 3.3333 mg = 1 | | | drop), oral, HSD PRN, Starting | | | Thu06/23/18 at 1324, Until [facility] | | | 06/24/18 at 0027, bloating, gas | | | bubbles | | + +---+ | | | + +---+ | sodium chloride 0.9 % (NS) IV | | | infusion 50 mL/hr, intravenous, | | | CONTINUOUS, Starting Thu06/23/18 | | | at 1330, Until [facility] 06/24/18 at | | | 0027 | | + +---+ | | | + +---+ documented in this encounter"
--- OUTSIDE RECORDS SUMMARY | ~2020-03-23 | XMS | Encounter Summary ---
Demographics + + + | Address | [address] | | | [place] [address] | + + + | Home Phone | | + + + | Preferred Language | Unknown | + + + | Marital Status | Single | + + + | Orthodox Affiliation | NON | + + + | Race | White | + + + | Ethnic Group | Not or | + + + Author + + + | Author | [facility] | + + + | Organization | [facility] | + + + | Address | Unknown | + + + | Phone | Unavailable | + + + Support + + + + + | Name | Relationship | Address | Phone | + + + + + | Katalina Padilla | ECON | [address] | | | | | [place], [place] | | | | | [address] | | + + + + + | Ellie Vang | ECON | Unknown | | + + + + + Care Team Providers + +------+ + | Care Gas Meter Mechanic Name | Role | Phone | + +------+ + | Fadi Goodrich DO | PCP | | + +------+ + Reason for Visit + +--------+ + | Reason | Onset | Comments | | | Date | | + +--------+ + | Telephone follow-up | 06/24/ | 06/23/18 | | | 2018 | | + +--------+ + Encounter Details +--------+ + + + + | Date | Type | Department | Care Team | Description | +--------+ + + + + | 06/24/ | Telephone | Endoscopic | Marcella Wilcox MD | Telephone follow-up | | 2018 | | Procedural Unit at | [address] | (06/23/18) | | | | [address] | [place], [place] | | | | | [address] | [address] | | | | | [address], | [phone] | | | | | [address] [place] [address], | | | | | | [place] [address] | | | | | | [phone] | | | +--------+ + + + [...] this encounter Miscellaneous Notes Telephone Encounter - Elizabeth Ricci MA - 06/24/2018 11:24 AM PSTFollow up phone call to patient regarding GI procedure from 06/23/18. Patient states the following: "I'm ok" Informed the patient that their referring provider will receive a copy of the procedure results with in the next week. Patient advised to review discharge instructions and to give us a call if they have any que stions or concerns documented in this en counter Plan of Treatment +--------+ + + + + | Date | Type | Specialty | Care Team | Description | +--------+ + + + + | 04/04/ | Telephone-S | Surgery | Orquidea Cristobal, | | | 2020 | sherrill | | SOFTWARE CLERK [address] | | | | | | [place], [place] | | | | | | [address] | | | | | | [phone] | | | | | | | | +--------+ + + + + documented as of this encounter Visit Diagnoses Not on filedocumented in this encounter
--- OUTSIDE RECORDS SUMMARY | ~2020-03-23 | XMS | Encounter Summary ---
Demographics + + + | Address | [address] | | | [place] [address] | + + + | Home Phone [...] + | Katalina Padilla | ECON | [address] | | | | | [place], [place] | | | | | [address] | | + + + + + | Ellie Vang | ECON | Unknown | | + + + + + Care Team Providers + +------+ + | Care Pharmacologist Name | Role | Phone | + +------+ + | Fadi Goodrich DO | PCP | | + +------+ + Reason for Visit + + + | Reason | Comments | + + + | Refill Request | Phentermine 37.5mg | + + + Encounter Details +--------+ + + + + | Date | Type | Department | Care Team | Description | +--------+ + + + + | 11/25/ | Telephone | Cardiology | Randell Franks, | Refill Request | | 2018 | | Preventive at [facility] | MD [address] | (Phentermine 37.5mg) | | | | [address] | [place], [place] | | | | | [facility] | [address] | | | | | and [place], | [phone] | | | | | [facility] [address] | | | | | | [place], [place] | | | | | | [address] | | | | | | [phone] | | | +--------+ + + + [...] this encounter Miscellaneous Notes Telephone Encounter - Kate Meraz RN - 11/27/2017 12:55 PM PDT Called in refill to pharmacy. Order Transmittal Info Date and Time Department Ordering/Authorizing 11/25/2017 5:10 PM Cardiology Preventive at [facility] Randell Franks MD Medication Detail Disp Refills PHENTERMINE 37.5 mg oral tablet 90 tablet 1 Sig: TAKE ONE TABLET BY MOUTH ONCE DAILY IN THE MORNING BEFORE BREAKFAST Class: Requires Phone In Order: [id number] elephone Encounter - Jason Bonds MA - 11/25/2017 3:08 PM PDTFormatting of this note might be diffe rent from the original. Refill Request for: Requested Prescriptions Pending Prescriptions Disp Refills PHENTERMINE 37.5 mg oral tablet [Pharmacy Med Name: PHENTERMINE 37.5MG TAB] 90 tablet 3 Sig: TAKE ONE TABLET BY MOUTH ONCE DAILY IN THE MORNING BEFORE BREAKFAST Patient Last Seen: Last Appointment in [facility] was on 11/20/17 at 9:35 am wit h Randell Franks MD. Follow Up Plan: Next Appointment in [facility] is on 06/04/18 at 10:35 am with Jessica Franks MD. Please review and sign if appropriate documented in this encounter Plan of Treatment +--------+ + + + + | Date | Type | Specialty | Care Team | Description | +--------+ + + + + | 04/04/ | Telephone-S | Surgery | Orquidea Cristobal, | | | 2020 | cheduled | | GENERAL SALES MANAGER [address] | | | | | | [place], [place] | | | | | | [address] | | | | | | [phone] | | | | | | | | +--------+ + + + + documented as of this encounter Visit Diagnoses Not on filedocumented in this encounter"
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
--- OUTSIDE RECORDS SUMMARY | ~2020-03-23 | XMS | Encounter Summary ---
Demographics + + + | Address | [address] | | | [place] [address] | + + + | Home Phone | | + + + | Preferred Language | Unknown | + + + | Marital Status | Single | + + + | Judaism Affiliation | NON | + + + [...] + | Katalina Padilla | ECON | [address] | | | | | [place], [place] | | | | | [address] | | + + + + + | Ellie Vang | ECON | Unknown | | + + + + + Care Team Providers + +------+ + | Care Order Checker Name | Role | Phone | + +------+ + | Fadi Goodrich DO | PCP | | + +------+ + Reason for Visit + +--------+ + | Reason | Onset | Comments | | | Date | | + +--------+ + | Prior Authorization | 12/01/ | Yvonne 5 mg | | Request | 2017 | | + +--------+ + Encounter Details +--------+ + + + + | Date | Type | Department | Care Team | Description | +--------+ + + + + | 12/01/ | Telephone | Cardiology | Randell Franks, | Prior Authorization | | 2017 | | Preventive at [facility] | MD [address] | Request (Farxiga 5 | | | | [address] | [place], [place] | mg) | | | | [facility] | [address] | | | | | and [place], | [phone] | | | | | [facility] [address] | | | | | | [place], [place] | | | | | | [address] | | | | | | [phone] | | | +--------+ + + + [...] this encounter Miscellaneous Notes Telephone Encounter - Keerthi Garcia MA - 12/05/2016 2:17 PM PDTI received a denial for the PA for Farxiga. I scanned it into the chart and forwarded it to Kate Meraz.Electro nically signed by Keerthi Garcia MA at 12/05/2016 2:18 PM PDTTelephone Encounter - Kate Meraz RN - 12/03/2016 11:59 AM PDTCompleted Prior Auth for Farxiga medication on Cover [employer]. Office note attached. Will await at least 5 business days. Routing to SOFI to call and check on status. ele phone Encounter - Rhona Mccullough MA - 12/01/2016 11:33 AM PDTI received a covermymeds request from the patients pharmacy [facility] for FARXIGA. I placed the form in the folder for the RN to complete the PA on Ring with the de la cruz: [id number] signed by Rhona andersen MA at 12/01/2016 11:35 AM PDTdocumented in this encounter Plan of Treatment +--------+ + + + + | Date | Type | Specialty | Care Team | Description | +--------+ + + + + | 04/04/ | Telephone-S | Surgery | Orquidea Cristobal, | | | 2019 | cheduled | | RENAL MEDICINE PHYSICIAN [address] | | | | | | [place], [place] | | | | | | [address] | | | | | | [phone] | | | | | | | | +--------+ + + + + documented as of this encounter Visit Diagnoses Not on filedocumented in this encounter"
--- OUTSIDE RECORDS SUMMARY | ~2020-03-23 | XMS | Encounter Summary ---
Demographics + + + | Address | [address] | | | [place] [address] | + + + | Home Phone | | + + + | Preferred Language | Unknown | + + + | Marital Status | | + + + | Episcopalian Affiliation | Unknown | + + + [...] Team Providers + +------+ + | Care Stone Setter [employer] Name | Role | Phone | + +------+ + | Jorje Hill | PCP | | + +------+ + Encounter Details +--------+ + + + + | Date | Type | Department | Care Team | Description | +--------+ + + + + | 01/01/ | Orders Only | [facility] | Augustine Fu MD | Hyperparathyroidism | | 2020 | | NEPHROLOGY [place] | [address] [place] | (HCC) (Primary Dx); | | | | [address] [place] | [address] [place], [place] | CKD (chronic kidney | | | | [address] [place], [place] | [address] | disease) stage 2, | | | | [address] | | GFR 60-89 ml/min; | | | | [phone] | | HTN, goal below | | | | | | 130/80; Edema, | | | | | | unspecified type; | | | | | | Hyperuricemia; | | | | | | Hypokalemia | +--------+ + + + + Social [...] [address] | | | | | | [place] [address] | | | | | | [phone] | | | | | | | | +--------+ + + + + | 04/18/ | Procedure | Neurology | Camille De La Paz, | | | 2019 | visit | | MD [address] | | | | | | [address] | | | | | | [place] [address] | | | | | | [phone] | | | | | | | | +--------+ + + + + + +------+--------+ + + | Name | Type | Priori | Associated Diagnoses | Order Schedule | | | | ty | | | + +------+--------+ + + | Renal Function Panel | Lab | Routin | | Expected: | | | | e | Hyperparathyroidism | 01/09/2020, Expires: | | | | | (HCC) HTN, goal | 01/01/2021 | | | | | below 130/80 Edema, | | | | | | unspecified type | | | | | | Hyperuricemia | | | | | | Hypokalemia | | + +------+--------+ + + | Magnesium | Lab | Routin | | Expected: | | | | e | Hyperparathyroidism | 01/09/2020, Expires: | | | | | (HCC) HTN, goal | 01/01/2021 | | | | | below 130/80 Edema, | | | | | | unspecified type | | | | | | Hyperuricemia | | | | | | Hypokalemia | | + +------+--------+ + + | CBC with | Lab | Routin | | Expected: | | Differential | | e | Hyperparathyroidism | 01/02/2020, Expires: | | | | | (HCC) HTN, goal | 01/01/2021 | | | | | below 130/80 Edema, | | | | | | unspecified type | | | | | | Hyperuricemia | | | | | | Hypokalemia | | + +------+--------+ + + | Parathyroid Hormone, | Lab | Routin | | Expected: | | Intact | | e | Hyperparathyroidism | 01/09/2020, Expires: | | | | | ([facility]) HTN, goal | 01/01/2021 | | | | | below 130/80 Edema, | | | | | | unspecified type | | | | | | Hyperuricemia | | | | | | Hypokalemia | | + +------+--------+ + + | Uric Acid | Lab | Routin | | Expected: | | | | e | Hyperparathyroidism | 01/09/2020, Expires: | | | | | ([facility]) HTN, goal | 01/01/2021 | | | | | below 130/80 Edema, | | | | | | unspecified type | | | | | | Hyperuricemia | | | | | | Hypokalemia | | + +------+--------+ + + | Protein/Creatinine | Lab | Routin | | Expected: | | Ratio, Urine | | e | Hyperparathyroidism | 01/09/2020, Expires: | | | | | (HCC) HTN, goal | 01/01/2021 | | | | | below 130/80 Edema, | | | | | | unspecified type | | | | | | Hyperuricemia | | | | | | Hypokalemia | | + +------+--------+ + + documented as of this encounter Visit Diagnoses + + | Diagnosis | + + | Hyperparathyroidism (HCC) - Primary Hyperparathyroidism, unspecified | + + | CKD (chronic kidney disease) stage 2, GFR 60-89 ml/min Chronic kidney disease, Stage | | II (mild) | + + | HTN, goal below 130/80 Unspecified essential hypertension | + + | Edema, unspecified type | + + | Hyperuricemia Other abnormal blood chemistry | + + | Hypokalemia Hypopotassemia | + + documented in this encounter"
--- OUTSIDE RECORDS SUMMARY | ~2020-03-23 | XMS | Encounter Summary ---
Demographics + + + | Address | [address] | | | [place] [address] | + + + | Home Phone | | + + + | Preferred Language | Unknown | + + + | Marital Status | | + + + | Anglican Affiliation | Unknown | + + + | Race | White | + + + | Ethnic Group | Not or | + + + Author + + + | Author | [facility] | | | and Jeffana | + + + | Organization | [facility] | | | [...] Providers + +------+ + | Care Medical Device Assembler Name | Role | Phone | + +------+ + PCP | Unavailable | + +------+ + Encounter Details +--------+ + + + + | Date | Type | Department | Care Team | Description | +--------+ + + + + | 10/07/ | Orders Only | [facility] | Dharmesh Escobar, | | | 2017 | | NEPHROLOGY [place] | [facility] [address] | | | | [address] | [address] | | | | | [address] [place], [place] | [place] | | | | | [id number] | [phone] | | | | | [phone] | [phone] | | | | | | | [...] [place] | | | | | | [place] [address] | | | | | | [phone] | | | | | | | | +--------+ + + + + | 04/18/ | Procedure | Neurology | Camille De La Paz, | | | 2019 | visit | | [address] | | | | | | [place] | | | | | | [place] [id number] | | | | | | [phone] | | | | | | | | +--------+ + + + + documented as of this encounter Procedures + +--------+ + + + | Procedure Name | Priori | Date/Time | Associated Diagnosis | Comments | | | ty | | | | + +--------+ + + + | EXTERNAL LAB: CBC | Routin | 10/07/2017 | | Results for this | | | e | 12:50 AM | | procedure are in the | | | | PDT | | results section. | + +--------+ + + + | URINALYSIS, REFLEX | Routin | 10/07/2017 | | Results for this | | MICROSCOPIC AND/OR | e | 12:50 AM | | procedure are in the | | CULTURE | | PDT | | results section. | + +--------+ + + + | PROTEIN/CREATININE | Routin | 10/07/2017 | | Results for this | | RATIO, URINE | e | 12:50 AM | | procedure are in the | | | | PDT | | results section. | + +--------+ + + + | PARATHYROID HORMONE, | Routin | 10/07/2017 | | Results for this | | INTACT | e | 12:50 AM | | procedure are in the | | | | PDT | | results section. | + +--------+ + + + | MAGNESIUM | Routin | 10/07/2017 | | Results for this | | | e | 12:50 AM | | procedure are in the | | | | PDT | | results section. | + +--------+ + + + | RENAL FUNCTION PANEL | Routin | 10/07/2017 | | Results for this | | | e | 12:50 AM | | procedure are in the | | | | PDT | | results section. | + +--------+ + + + documented in this encounter Results Urinalysis, Reflex Microscopic and/or Culture (10/07/2017 12:50 AM PDT) + + + + + + | Component | Value | Ref Range | Performed | Pathologist | | | | | At | Signature | + + + + + + | Color | Yellow | | EXTERNAL | | | | | | LAB | | + + + + + + | Clarity, | Clear | | EXTERNAL | | | Urine | | | LAB | | + + + + + + | Spec Grav, | 1.019 | 1.005 - 1.030 | EXTERNAL | | | Fluid | | | LAB | | + + + + + + | Leukocyte | Negative | | EXTERNAL | | | Esterase, | | | LAB | | | Urine | | | | | + + + + + + | Nitrite, | Negative | | EXTERNAL | | | Urine | | | LAB | | + + + + + + | Urobilinoge | Normal | | EXTERNAL | | | n, Urine | | | LAB | | + + + + + + | Total | Negative | | EXTERNAL | | | Protein | | | LAB | | + + + + + + | Blood, | Negative | | EXTERNAL | | | Urine | | | LAB | | + + + + + + | Ketones | Negative | | EXTERNAL | | | | | | LAB | | + + + + + + | Bilirubin, | Negative | | EXTERNAL | | | Urine | | | LAB | | + + + + + + | Glucose, | Negative | | EXTERNAL | | | Urine | | | LAB | | + + + + + + + + | Specimen | + + | | + + + + + | Narrative | Performed At | + + + | Epithelial: Squamous 4+ | EXTERNAL LAB | + + + + +---------+ + + | Performing | Address | City/State/Zipcode | Phone Number | | Organization | | | | + +---------+ + + | EXTERNAL LAB | | | | + +---------+ + + Protein/Creatinine Ratio, Urine (10/07/2017 12:50 AM PDT) + + + + + + | Component | Value | Ref Range | Performed | Pathologist | | | | | At | Signature | + + + + + + | Protein/Cre | 154.4 (A) | 0 - 150 | EXTERNAL | | | at Ratio | | | LAB | | + + + + + + + + | Specimen | + + | Urine specimen | | (specimen) | + + + +---------+ + + | Performing | Address | City/State/Zipcode | Phone Number | | Organization | | | | + +---------+ + + | EXTERNAL LAB | | | | + +---------+ + + External Lab: CBC (10/07/2017 12:50 AM PDT) + + + + + + | Component | Value | Ref Range | Performed | Pathologist | | | | | At | Signature | + + + + + + | WBC | 10.9 | 4.5 - 11.0 10 | EXTERNAL | | | | | | LAB | | + + + + + + | Non- | 4.79 | 3.8 - 5.1 10 | EXTERNAL | | | Red Blood | | | LAB | | | Cells | | | | | | Counted | | | | | + + + + + + | Hemoglobin | 12.8 | 12 - 16 g/dL | EXTERNAL | | | | | | LAB | | + + + + + + | Hematocrit, | 39.8 | 35 - 45 % | EXTERNAL | | | POC | | | LAB | | + + + + + + | MCV | 83.1 | 81 - 99 fL | EXTERNAL | | | | | | LAB | | + + + + + + | MCH | 27 | 27 - 33 pg | EXTERNAL | | | | | | LAB | | + + + + + + | MCHC | 32 | 30 - 36 g/dL | EXTERNAL | | | | | | LAB | | + + + + + + | Platelet | 260 | 140 - 440 K/ L | EXTERNAL | | | Count | | | LAB | | | Plasma | | | | | + + + + + + | RDW-CV | 17.3 (A) | 10.5 - 15.0 % | EXTERNAL | | | | | | LAB | | + + + + + + | MPV | | fL | EXTERNAL | | | | | | LAB | | + + + + + + | Differentia | | | EXTERNAL | | | l Type | | | LAB | | + + + + + + | % Segmented | | % | EXTERNAL | | | | | | LAB | | | Neutrophils | | | | | + + + + + + | % | | % | EXTERNAL | | | Lymphocytes | | | LAB | | + + + + + + | % Monocytes | | % | EXTERNAL | | | | | | LAB | | + + + + + + | % | | % | EXTERNAL | | | Eosinophils | | | LAB | | + + + + + + | % Basophils | | % | EXTERNAL | | | | | | LAB | | + + + + + + | Absolute | | / L | EXTERNAL | | | Segmented | | | LAB | | | Neutrophils | | | | | + + + + + + | Absolute | | / L | EXTERNAL | | | Lymphocytes | | | LAB | | + + + + + + | Absolute | | / L | EXTERNAL | | | Monocytes | | | LAB | | + + + + + + | Absolute | | / L | EXTERNAL | | | Eosinophils | | | LAB | | + + + + + + | Absolute | | / L | EXTERNAL | | | Basophils | | | LAB | | + + + + + + + + | Specimen | + + | Blood specimen | | (specimen) | + + + +---------+ + + | Performing | Address | City/State/Zipcode | Phone Number | | Organization | | | | + +---------+ + + | EXTERNAL LAB | | | | + +---------+ + + Parathyroid Hormone, Intact (10/07/2017 12:50 AM PDT) + + + + + + | Component | Value | Ref Range | Performed | Pathologist | | | | | At | Signature | + + + + + + | PTH INTACT | 67.78 (A) | 15 - 65 pg/mL | EXTERNAL | | | | | | LAB | | + + + + + + + + | Specimen | + + | Blood specimen | | (specimen) | + + + +---------+ + + | Performing | Address | City/State/Zipcode | Phone Number | | Organization | | | | + +---------+ + + | EXTERNAL LAB | | | | + +---------+ + + Magnesium (10/07/2017 12:50 AM PDT) + +-------+ + + + | Component | Value | Ref Range | Performed | Pathologist | | | | | At | Signature | + +-------+ + + + | Magnesium | 1.8 | 1.7 - 2.5 mg/dL | EXTERNAL | | | | | | LAB | | + +-------+ + + + + + | Specimen | + + | Blood specimen | | (specimen) | + + + +---------+ + + | Performing | Address | City/State/Zipcode | Phone Number | | Organization | | | | + +---------+ + + | EXTERNAL LAB | | | | + +---------+ + + Renal Function Panel (10/07/2017 12:50 AM PDT) + +---------+ + + + | Component | Value | Ref Range | Performed | Pathologist | | | | | At | Signature | + +---------+ + + + | Glucose, | 105 (A) | 70 - 100 mg/dL | EXTERNAL | | | Fasting | | | LAB | | + +---------+ + + + | BUN | 17 | 6 - 23 mg/dL | EXTERNAL | | | | | | LAB | | + +---------+ + + + | Creatinine | 0.88 | 0.6 - 1.35 | EXTERNAL | | | | | mg/dL | LAB | | + +---------+ + + + | PHOSPHORUS | | mg/dL | EXTERNAL | | | | | | LAB | | + +---------+ + + + | Albumin | 3.5 | 3.5 - 5.0 | EXTERNAL | | | | | | LAB | | + +---------+ + + + | Na | 141 | 132 - 143 | EXTERNAL | | | | | mmol/L | LAB | | + +---------+ + + + | K | 4.4 | 3.6 - 5.1 | EXTERNAL | | | | | mmol/L | LAB | | + +---------+ + + + | Cl | 104 | 95 - 112 mmol/L | EXTERNAL | | | | | | LAB | | + +---------+ + + + | CO2 | 22 | 19 - 31 mmol/L | EXTERNAL | | | | | | LAB | | + +---------+ + + + | Anion Gap | 19.4 | 7 - 21 mmol/L | EXTERNAL | | | | | | LAB | | + +---------+ + + + | eGFR, | | | EXTERNAL | | | non- | | | LAB | | | [place] | | | | | + +---------+ + + + | Phosphorus, | 2.6 | 2.5 - 5.0 | EXTERNAL | | | Inorganic | | | LAB | | + +---------+ + + + | BUN/Creatin | 19.3 | 6.0 - 28.6 | EXTERNAL | | | ine Ratio | | | LAB | | + +---------+ + + + | Calcium | 9.1 | 8.4 - 10.2 | EXTERNAL | | | | | mg/dL | LAB | | + +---------+ + + + | Estimated | 71 | mg/dL | EXTERNAL | | | [...]
--- OUTSIDE RECORDS SUMMARY | ~2020-03-23 | XMS | Encounter Summary ---
Demographics + + + | Address | [address] | | | [place] [address] | + + + | Home Phone [...] + + + | Author | [facility] | + + + | Organization | [facility] | + + + | Address | Unknown | + + + | Phone | Unavailable | + + + Support + + + + + | Name | Relationship | Address | Phone | + + + + + | Katalina Padilla | ECON | [address] | | | | | [place], [place] | | | | | [address] | | + + + + + | Ellie Vang | ECON | Unknown | | + + + + + Care Team Providers + +------+ + | Care Watch Leader Name | Role | Phone | [...] Jacy Flannery | | | | | [facility] at | [place], [place] | | | | | [place] [address] [address] | [address] | | | | | [facility] | [phone] | | | | | [facility] | | | | | | [place], [place] | | | | | | [address] | | | | | | [phone] | | | +--------+--------+ + + + [...] | | 2019 | sherrill | | FISH ROE TECHNICIAN [address] | | | | | | [place], [place] | | | | | | [address] | | | | | | [phone] | | | | | | | | +--------+ + + + + documented as of this encounter Visit Diagnoses Not on filedocumented in this encounter"
--- OUTSIDE RECORDS SUMMARY | ~2020-03-23 | XMS | Encounter Summary ---
Demographics + + + | Address | [address] | | | [place] [address] | + + + | Home Phone | | + + + | Preferred Language | Unknown | + + + | Marital Status | | + + + | Holiness Affiliation | Unknown | + + + | Race | White | + + + | Ethnic Group | Not or | + + + Author + + + | Author | [facility] | | | and Jeffana | + + + | Organization | [facility] | | | and [...] Team Providers + +------+ + | Care Tank Farm Operator Name | Role | Phone | + +------+ + PCP | Unavailable | + +------+ + Encounter Details +--------+ + + + + | Date | Type | Department | Care Team | Description | +--------+ + + + + | 07/30/ | Orders Only | [facility] | Sulema Altamirano | | | 2019 | | [address] | [address] | | | [address] | [place] | | | | | [place], [place] | [place] [address] | | | | | [address] | [phone] | | | | | [phone] | | | +--------+ + + + [...] [place] | | | | | | [place] [address] | | | | | | [phone] | | | | | | | | +--------+ + + + + | 04/18/ | Procedure | Neurology | Camille De La Paz, | | | 2019 | visit | | [address] | | | | | | [place] [address] | | | | | | [phone] | | | | | | | [...] | OF OUTSIDE FILMS | e | 3:17 PM | | procedure are in the | | | | PDT | | results section. | + +--------+ + + + documented in this encounter Results ECHO Interpretation of Outside Films (02/22/2019 3:17 PM PDT) + + | Specimen | [...] MEASUREMENTS Ao Diam: 3.21 cm Ao sinus: 3.46 | | | cm Ao st junct: 3.05 cm IVC: 1.54 cm LA Major: 3.90 cm | | | EDV(Teich): 102.71 ml IVSd: 0.92 cm LVIDd: 4.70 cm LVPWd: | | | 0.79 cm LVOT Area: 3.58 cm2 LVOT Diam: 2.13 cm %FS: | | | 39.25 % EF(Teich): 69.70 % ESV(Teich): 31.11 ml LVIDs: | | | 2.85 cm SV(Teich): 71.60 ml RA Major: 4.15 cm RV Major: | | | 6.85 cm RV Minor: 2.73 cm RVIDd: 2.75 cm LVEF MOD A2C: | | | 64.28 % SV MOD A2C: 67.83 ml LVEF MOD A4C: 64.07 % SV MOD | | | A4C: 70.91 ml EF Biplane: 65.73 % LVEDV MOD BP: 116.32 ml | | | LVESV MOD BP: 39.85 ml LVEDV MOD A2C: 105.51 ml LVLd A2C: | | | 9.58 cm LVEDV MOD A4C: 110.66 ml LVLd A4C: 8.22 cm LVESV MOD | | | A2C: 37.68 ml LVLs A2C: 7.26 cm LVESV MOD A4C: 39.75 ml | | | LVLs A4C: 6.79 cm LAESV(A-L): 30.33 ml LAESV Index (A-L): | | | 14.72 ml/m2 LAAs A2C: 10.03 cm2 LAESV A-L A2C: 22.69 ml LALs | | | A2C: 3.76 cm LAAs A4C: 13.41 cm2 LAESV A-L A4C: 36.80 ml | | | LALs A4C: 4.14 cm RAAs: 11.18 cm2 RAESV A-L: 22.84 ml | | | RAESV MOD: 22.10 ml RALs: 4.64 cm TAPSE: 2.04 cm AV maxPG: | | | 6.55 mmHg AV meanP.52 mmHg AV Vmax: 1.27 m/s AV | | | Vmean: 0.88 m/s AV VTI: 26.50 cm ADALID Vmax: 2.49 cm2 ADALID | | | (VTI): 2.39 cm2 AVAI Vmax: 0.00 cm2/m2 AVAI (VTI): 0.00 | | | cm2/m2 LVOT maxP.17 mmHg LVOT meanP.82 mmHg LVSI | | | Dopp: 30.83 ml/m2 LVSV Dopp: 63.52 ml LVOT Vmax: 0.89 m/s | | | LVOT Vmean: 0.65 m/s LVOT VTI: 17.71 cm MV A Jeffrey: 0.61 m/s | | | MV Dec Chaves: 2.43 m/s2 MV DecT: 247.51 ms MV E Jeffrey: 0.60 | | | m/s MV E/A Ratio: 0.98 MV PHT: 71.78 ms MVA By PHT: 3.06 | | | cm2 Septal e': 0.06 m/s Septal E/e': 9.54 Lateral e': 0.10 | | | m/s Lateral E/e': 5.84 RAP: 5 mmHg RV s': 0.11 m/s | | | Office Bookkeeper: JESSICA Authenticated by: Darryl Merrill Report Date/Time: | | | 02-22-2019 20:8:36 | | + + + + --------+ | Procedure Note | + --------+ | David Burgess Conversion - 03/17/2019 1:08 PM PDT Patient Name: Sherrell Cristina | | : 1975 Performing Physician: Darryl | | Desirae [...] cmLVIDd: 4.70 cmLVPWd: 0.79 cmLVOT Area: 3.58 [id number] Diam: 2.13 cm%FS: 39.25 | | %EF(Teich): [...] | Index (A-L): 14.72 ml/m2LAAs A2C: 10.03 [id number] A-L A2C: 22.69 mlLALs A2C: 3.76 | | cmLAAs A4C: 13.41 jt8DUDCO A-L A4C: 36.80 mlLALs A4C: 4.14 cmRAAs: 11.18 | | qe5RGSTF A-L: 22.84 mlRAESV MOD: 22.10 mlRALs: 4.64 cmTAPSE: 2.04 cmAV maxPG: | | 6.55 mmHgAV meanP.52 mmHgAV Vmax: 1.27 m/Genesis Vmean: 0.88 m/Genesis VTI: 26.50 | | cmAVA Vmax: 2.49 cm2AVA (VTI): 2.39 iu5NTYS Vmax: 0.00 cm2/m2AVAI (VTI): 0.00 | | cm2/m2LVOT maxP.17 mmHgLVOT meanP.82 mmHgLVSI Dopp: 30.83 ml/m2LVSV Dopp: | | 63.52 mlLVOT Vmax: 0.89 m/sLVOT Vmean: 0.65 m/sLVOT VTI: 17.71 cmMV A Jeffrey: | | 0.61 m/sMV Dec Chaves: 2.43 m/s2MV DecT: 247.51 msMV E Jeffrey: 0.60 m/sMV E/A Ratio: | | 0.98MV PHT: 71.78 msMVA By PHT: 3.06 xc3Rgides e': 0.06 m/sSeptal E/e': | | 9.54Lateral e': 0.10 m/sLateral E/e': 5.84RAP: 5 mmHgRV s': 0.11 m/s | | Office Bookkeeper: HONEYuthenticated by: Darryl Hess Date/Time: 02-22-2019 20:8:36 | [...] A Jeffrey: 0.61 m/s | |MV Dec Chaves: 2.43 m/s2 | |MV DecT: 247.51 ms | |MV E Jeffrey: 0.60 m/s | |MV E/A Ratio: 0.98 | |MV PHT: 71.78 ms | |MVA By PHT: 3.06 cm2 | |Septal e': 0.06 m/s | |Septal E/e': 9.54 | |Lateral e': 0.10 m/s | |Lateral E/e': 5.84 | |RAP: 5 mmHg | |RV s': 0.11 m/s | | | |Office Bookkeeper: JESSICA | |Authenticated by: Darryl Merrill | [...]
--- OUTSIDE RECORDS SUMMARY | ~2020-03-23 | XMS | Encounter Summary ---
Demographics + + + | Address | [address] | | | [place] [address] | + + + | Home Phone [...] [place], [place] | | | | | [address] | | + + + + + | Ellie Vang | ECON | Unknown | | + + + + + Care Team Providers + +------+ + | Care Rn Nicu Name | Role | Phone | + +------+ + | Fadi Goodrich DO | PCP | | + +------+ + Reason for Visit + + + | Reason | Comments | + + + | Comprehensive Follow | | | Up | | + + + Encounter Details +--------+---------+ + + + | Date | Type | Department | Care Team | Description | +--------+---------+ + + + | 04/09/ | Office | Trauma Emergency | Danny Schaeffer, | Incarcerated | | 2015 | Visit | General Surgery at | MD [address] | incisional hernia | | | | [facility] [address] | (Primary Dx) | | | | [address] | [place], [place] | | | | | Physicians [place], | [address] | | | | | [address]nd Floor | [phone] | | | | | [place], [place] | | | | | | [address] | | | | | | [phone] | | | +--------+---------+ + + + [...] + + + | Blood Pressure | 133/63 | 04/09/2015 1:02 PM | | | | | PDT | | + + + + + | Pulse | 97 | 04/09/2015 1:02 PM | | | | | PDT | | + + + + + | Temperature | 36.7 C (98.1 F) | 04/09/2015 1:02 PM | | | | | PDT | | + + + + + | Respiratory Rate | 20 | 04/09/2015 1:02 PM | | | | | PDT | | + + + + + | Oxygen Saturation | - | - | | + + + + + | Inhaled Oxygen | - | - | | | Concentration | | | | + + + + + | Weight | 183.8 kg (405 lb 1.6 | 04/09/2015 1:02 PM | | | | oz) | PDT | | + + + + + | Height | - | - | | + + + + + | Body Mass Index | 76.54 | 04/03/2015 10:36 AM | | | | | PDT | | + + + + + documented in this encounter Progress Notes Danny Schaeffer MD - 04/09/2015 1:05 PM PDTFormatting of this note might be different f rom the original. EMERGENCY GENERAL SURGERY POSTOP FOLLOW UP DATE OF VISIT: 04/09/2015 REASON FOR VISIT: Postop check HISTORY: Elzbieta Cristina is a(n) 40 y.o. female s/p incisional hernia repair (primary rep air) and scar resection on 03/01/2015, here for postop check. INTERVAL HISTORY: Since surgery she has done well post op and has no major complaints. P ain is mild now. She finished her narcotic Rx, only requiring an occasional Tylenol since. She is tolerating PO without n/v and having non-bloody BMs. No drainage from wounds, and no fevers or chills. Past Surgical History Procedure Laterality Date Tonsillectomy and adenoidectomy Appendectomy, open 2010 Umbilical hernia repair 2010 Treatment of ankle fracture with screws remaining Incision and drainage of wound abscess x2 midline transverse wound s/p open appendectomy 2010 Ventral hernia repair 10/2012 Dr. Andie Brian Incisional hernia repair 02/[facility]/ Dr. Cantu PHYSICAL EXAMINATION: BP 133/63 | Pulse 97 | Temp (Src) 36.7 C (98.1 F) (Oral) | RR 20 | Wt 183.752 kg (405 l b 1.6 oz) | LMP 2015 | BMI 76.58 kg/(m^2) ABDOMEN / SURGICAL SITE: Obese, soft, nondistended. Midline incision c/d/i w some mile sk in excoriation superiorly (due to tape per pt). No cellulitis or other signs of infection. Min tender to palpation. Palpable scar ridge more on inferior aspect. No obvious evidence of hernia recurrence. No ecchymosis or hematoma. IMPRESSION: 40 y.o. female s/p Open primary suture repair of incarcerated incisional marguerite ia repair healing and overall doing well postop. No signs of infection and no obvious signs of hernia recurrence. PLAN: Continue to restrict to < 20 lbs at this point for another 2-4 weeks. While I encouraged her to increase her activity level overall, I counseled her to reduce physical activity if she experiences any abdominal pain or symptoms. OK for any aerobic exercise (water aerobics, walking, etc) - letter given to pt. Continue to lose weight with healthy eating including smaller portions along with increa sed cardiovascular and physical activity. Pt states she has been in contact with our Bariatric program. OK to submerge midline wounds (pool/tub/bath). Follow up PRN, or sooner if any questions or concerns. DANNY SCHAEFFER MD [facility]AL SURGERY AT [place] [address] [address] [facility] Mailcode: [address] [place] [address] documented in this encounter Plan of Treatment +--------+ + + + + | Date | Type | Specialty | Care Team | Description | +--------+ + + + + | 04/04/ | Telephone-S | Surgery | Orquidea Cristobal, | | | 2020 | sherrill | | PATIENT CENTERED CARE SPECIALIST [address] | | | | | | [place], [place] | | | | | | [address] | | | | | | [phone] | | | | | | | | +--------+ + + + + documented as of this encounter Visit Diagnoses + + | Diagnosis | + + | Incarcerated incisional hernia - Primary Incisional hernia with obstruction | + + documented in this encounter"
--- OUTSIDE RECORDS SUMMARY | ~2020-03-23 | XMS | Encounter Summary ---
Demographics + + + | Address | [address] | | | [place] [address] | + + + | Home Phone [...] Team Providers + +------+ + | Care Clip On Sunglasses Inspector Name | Role | Phone | [...] Medical Records | | 2013 | | [place] [address] [address] | [address] [facility] | Review ([facility] - | | | | [facility] | [facility] | OUTSIDE RECORDS) | | | | for Health and | [place], [place] | | | | | [place] [address] | [address] | | | | | [place], [place] | [phone] | | | | | [address] | | | | | | [phone] | | | +--------+ + + + [...] | | 2019 | sherrill | | CATALOG LIBRARIAN [address] | | | | | | [place] | | | | | | [address] | | | | | | [phone] | | | | | | | | +--------+ + + + + documented as of this encounter Visit Diagnoses Not on filedocumented in this encounter"
--- OUTSIDE RECORDS SUMMARY | ~2020-03-23 | XMS | Encounter Summary ---
Demographics + + + | Address | [address] | | | [place] [address] | + + + | Home Phone [...] [place], [place] | | | | | [address] | | + + + + + | Ellie Vang | ECON | Unknown | | + + + + + Care Team Providers + +------+ + | Care Cheese Supervisor Name | Role | Phone | [...] | Essential | MD Randell | HA Roldan, | | | with COMPONENT ASSEMBLER | | hypertension | [address] | GEMA JIANG | | | | | Right | [address] | [address] | | | | | heart | [place], [place] | [facility] | | | | | failure | [address] | [address] [facility] | | | | | ([facility]) Type | Phone: | [place] | | | | | 2 diabetes | [phone] | [address] | | | | | mellitus | Fax: | Phone: | | | | | without | [phone] | [phone] | | | | | complication | | Fax: | | | | | , with | | [phone] | | | | | long-term | | | | | | | current use | | | | | | | of insulin | | | | | | | ([facility]) | | | +--------+ + + + + + Encounter Details +--------+---------+ + + + | Date | Type | Department | Care Team | Description | +--------+---------+ + + + | 04/01/ | Office | Digestive Health | Dione Andre, | History of Frandy-en-Y | | 2018 | Visit | Center at [facility] [address] | [address] [facility] | gastric bypass | | | | [facility] | [facility] [address] | (Primary Dx); | | | | for mobiManage and | [place], [place] | 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[facility] 2 | [address] | with insulin therapy | | | | [place], [place] | [phone] | ([facility]) | | | | [address] | | | | | | [phone] | | | +--------+---------+ + + + [...] documented as of this encounter Progress Notes Thai HA, Dione - 04/01/2018 10:30 AM PDTFormatting of this note might be different fro m the original. Nutrition Counseling: Post-op Bariatric Surgery Follow-Up Patient referred by: Randell Franks MD [address] [place] [address] Documented time of visit: 10:33 to 10:55 (22 minutes [id number] with patient) Surgery: Gastric Bypass Date of [...] index of 70 and over in adult ([facility]) Myalgia and myositis Nausea Neck pain Numbness Osteoarthritis of knee Palpitations Pneumonia Shortness of breath Staphylococcal infection Stroke (HCC) TIA (transient ischemic attack) due to Bromocriptine Tinea corporis UTI (urinary tract infection) Food logs: Yes-pen and paper Food choices: ground chicken, eggs, creamed soups (mushroom or tomato), cream of wheat occ, cottage cheese, yakut yogurt-light and fit, protein bar from [employer]. Unable to keep protei n shakes down. Fluid choices: water-4-5 bottles per day Supplementation: Flinstones, iron, vitamin D, vitamin C, Citracal supplement x 2 in the mor eusebio and 2 at night, magnesium, potassium, [id number]-rpoexpoq today Assessment: Vomiting likely due to volume [...] multivitamin & mineral (with iron) supplement, 2/day -8828-2208 mg calcium citrate with vitamin D/day (take in divided doses, not within 2 hour s of multivitamin or iron supplement) -500 mcg/day sublingual B12 supplement (or monthly injections) Continued to reinforce importance of mindful eating. Continue to increase physical activity. Follow up in 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
--- OUTSIDE RECORDS SUMMARY | ~2020-03-23 | XMS | Encounter Summary ---
Demographics + + + | Address | [address] | | | [place] [address] | + + + | Home Phone [...] + | Katalina Padilla | ECON | [address] | | | | | [place], [place] | | | | | [address] | | + + + + + | Ellie Vang | ECON | Unknown | | + + + + + Care Team Providers + +------+ + | Care Trailer Sections Assembler Name | Role | Phone | + +------+ + | Fadi Goodrich DO | PCP | | + +------+ + Reason for Visit +--------+--------+ + | Reason | Onset | Comments | | | Date | | +--------+--------+ + | Other | 02/24/ | | | | 2016 | | +--------+--------+ + Encounter Details +--------+ + + + + | Date | Type | Department | Care Team | Description | +--------+ + + + + | 02/24/ | Telephone | Cardiology | Randell Franks, | Other | | 2016 | | Preventive at [facility] | MD [address] | | | | | [address] | [place], [place] | | | | | [facility] | [address] | | | | | and [place], | [phone] | | | | | [place] [address] | | | | | | [place], [place] | | | | | | [address] | | | | | | [phone] | | | +--------+ + + + [...] Telephone Encounter - Keerthi Garcia MA - 02/25/2016 3:04 PM PDTI called [facility] in [place], [place] for visit notes from the following dates: 01/10/16, 01/30/16, 02/09/16 . documented in this e ncounter Plan of Treatment +--------+ + + + + | Date | Type | Specialty | Care Team | Description | +--------+ + + + + | 04/04/ | Telephone-S | Surgery | Orquidea Cristobal, | | | 2020 | sherrill | | TEST DEVELOPER [address] | | | | | | [place] | | | | | | [address] | | | | | | [phone] | | | | | | | | +--------+ + + + + documented as of this encounter Visit Diagnoses Not on filedocumented in this encounter"
--- OUTSIDE RECORDS SUMMARY | ~2020-03-23 | XMS | Encounter Summary ---
Demographics + + + | Address | [address] | | | [place] [address] | + + + | Home Phone [...] + | Katalina Padilla | ECON | [address] | | | | | [place], [place] | | | | | [address] | | + + + + + | Ellie Vang | ECON | Unknown | | + + + + + Care Team Providers + +------+ + | Care Physician Non Invasive Cardiologist Name | Role | Phone | + +------+ + | Fadi Goodrich DO | PCP | | + +------+ + Encounter Details +--------+ + + + + | Date | Type | Department | Care Team | Description | +--------+ + + + + | 08/16/ | Abstract | Digestive Health | Kathy Feldman, | | | 2013 | | Center at [facility] [address] | CARPET WEAVER [address] | | | | | [address] [facility] | [facility] [address] | | | | | for Health and | [place], [place] | | | | | [facility] 2 | [address] | | | | | [place], [place] | [phone] | | | | | [address] | | | | | | [phone] | | | +--------+ + + + [...] | | 2019 | sherrill | | ELL TUTOR [address] | | | | | | [place], [place] | | | | | | [address] | | | | | | [phone] | | | | | | | | +--------+ + + + + documented as of this encounter Visit Diagnoses Not on filedocumented in this encounter"
--- OUTSIDE RECORDS SUMMARY | ~2020-03-23 | XMS | Encounter Summary ---
Demographics + + + | Address | [address] | | | [place] [address] | + + + | Home Phone [...] + | Katalina Padilla | ECON | [address] | | | | | [place], [place] | | | | | [address] | | + + + + + | Ellie Vang | ECON | Unknown | | + + + + + Care Team Providers + +------+ + | Care Solar Installation Helper Name | Role | Phone [...] | | | | | essential | [address] | | | | | hypertension | [address] | Ave | | | | | Type II or | [address] | [place], [place] | | | | | unspecified | [place], [place] | [address] | | | | | type | [address] | Phone: | | | | | diabetes | Phone: | [phone] | | | | | mellitus | [phone] | Fax: | | | | | without | Fax: | [phone] | | | | | mention of | [phone] | | | | | | complication [...] + + | 03/06/ | Office | Cardiology | Randell Franks, | Type 2 diabetes | | 2013 | Visit | Preventive at [facility] | MD [address] | mellitus (HCC) | | | | [address] | [place], [place] | (Primary Dx) | | | | [facility] | [address] | | | | | and Healing, | [phone] | | | | | [address] | | | | | | [place], [place] | | | | | | [address] | | | | | | [phone] | | | +--------+---------+ + + + [...] + + + | Blood Pressure | 139/75 | 03/06/2014 9:42 AM | | | | | PDT | | + + + + + | Pulse | 115 | 03/06/2014 9:42 AM | | | | | PDT | | + + + + + | Temperature | 36.6 C (97.9 F) | 03/06/2014 9:42 AM | | | | | PDT | | + + + + + | Respiratory Rate | - | - | | + + + + + | Oxygen Saturation | 96% | 03/06/2014 9:42 AM | | | | | PDT | | + + + + + | Inhaled Oxygen | - | - | | | Concentration | | | | + + + + + | Weight | 185.5 kg (409 lb) | 03/06/2014 9:42 AM | | | | | PDT | | + + + + + | Height | 154.9 cm (5' 1") | 03/06/2014 9:42 AM | | | | | PDT | | + + + + + | Body Mass Index | 77.28 | 03/06/2014 9:42 AM | | | | | PDT | | + + + + + documented in this encounter Progress Notes Randell Franks MD - 03/06/2014 9:59 AM PDTFormatting of this note might be [...] headache Medications: Current Outpatient Prescriptions Medication Sig acetaminophen [...] twice w eekl (on Thursday and ). FLUoxetine 40 mg [...] in the morning. Admin ister before breakfast. phentermine 37.5 mg oral tablet Take 1 [...] an d no side effects. She reports seeing Dr. Brian, who told her that her insurance will req uire her to lose 25 more lbs before she can have RYGBP. Since then (in December 2013), she unde rwent urgent cholecystectomy in January. Since then, she has continued to have RUQ abdominal p ain and swelling. She has an appointment with her surgeon this afternoon to discuss these s ymptoms and what needs to be done, if anything. Her CBG's "are good", ranging in the 100's despite her recent illness. Weight: up from last visit Diet: appetite poor right now, little intake, in association with her recent illness Exercise: "I walk everywhere." ROS: No CP, SOB. O: vitals BP 139/75 | Pulse 115 | Temp (Src) 36.6 C (97.9 F) (Oral) | Ht 1.549 m (5' 1" ) | Wt 185.521 kg (409 lb) | SpO2 96% | BMI 77.32 kg/(m^2) Gen: pleasant, NAD Abd: Superficial surgial wounds appear to be healing over RUQ. Given her large pannus, di fficult to determine true swelling. No erythema but very tender to palpation in this region . Labs: None new to review. Assessment: 1) T2 Diabetes: Under good control by report. Will check her A1c today and continue present management, monitor glucose control. 2) Morbid obesity: Weight increased despite phentermine and topiramate. I suspect this rep resent fluid retention/3rd spacing and is not due to adipose accumulation. Once she is pilar fredo from her abdominal issues, she may need months to get back to her previous weight. Wi ll discuss with Dr. Brian and executive officer special warfare team her best strategies for meeting weight loss cri teria while awaiting RYGBP. 3) Abdominal pain: To follow-up with her surgeon to evaluate role of surgical management a t this time. Plan: 1) Continue healthy eating, be as active as she can be, phentermine and topiramate 2) Check A1c 3) Discuss abdominal pain, ventral hernia management with adelaide. 4) F/U 3- month, check A1c at that time.Electronically signed by Randell Franks MD at 0 03/06/2014 11:19 AM Rody Schultz MA - 03/06/2014 9:46 AM PDTWC: 67 InchesElectronical ly signed by Rody Elliott MA at 03/06/2014 11:19 AM PDTdocumented in this encounter Plan of Treatment +--------+ + + + + | Date | Type | Specialty | Care Team | Description | +--------+ + + + + | 04/04/ | Telephone-S | Surgery | Orquidea Cristobal, | | | 2020 | sherrill | | DIRECTOR OF SERVICES [address] | | | | | | [place], [place] | | | | | | [address] | | | | | | [phone] | | | | | | | | +--------+ + + + + documented as of this encounter Results HEMOGLOBIN A1C, BLOOD (03/06/2014 1:55 PM PDT) [...] [facility] | [address] | [place] [address] | | | SERVICES, SPECIAL | PARK [...]
--- OUTSIDE RECORDS SUMMARY | ~2020-03-23 | XMS | Encounter Summary ---
Demographics + + + | Address | [address] | | | [place] [address] | + + + | Home Phone [...] + | Katalina Padilla | ECON | [address] | | | | | [place], [place] | | | | | [address] | | + + + + + | Ellie Vang | ECON | Unknown | | + + + + + Care Team Providers + +------+ + | Care Health Education Teacher Name | Role | Phone | + +------+ + | Fadi Goodrich DO | PCP | | + +------+ + Reason for Visit + +--------+ + | Reason | Onset | Comments | | | Date | | + +--------+ + | Refill Request | 01/24/ | | | | 2015 | | + +--------+ + Encounter Details +--------+--------+ + + + | Date | Type | Department | Care Team | Description | +--------+--------+ + + + | 01/24/ | Refill | Cardiology | Randell Franks, | Refill Request | | 2014 | | Preventive at [facility] | MD [address] | | | | | [address] | [place], [place] | | | | | [facility] | [address] | | | | | and [place], | [phone] | | | | | [address] | | | | | | [place], [place] | | | | | | [address] | | | | | | [phone] | | | +--------+--------+ + + + [...] this encounter Miscellaneous Notes Telephone Encounter - Milana Bello RN - 01/24/2015 3:57 PM PDTRefill authorization c alled to pharmacy. e lephone Encounter - Branden Gutiérrez MD - 01/24/2015 3:37 PM PDTPlease call in phentermine refi ll elephone Encounter - Milana Asencio RN - 01/24/2015 12:57 PM PDTLast seen 08/28/14 - continue therapy. Follow up scheduled 04/03/15. 1:0 0 PM PDTTelephone Encounter - Rubia Wilhelm - 01/24/2015 10:35 AM PDTJaydastirma is calling, she is out of phentermine and is requesting a refill.Thank youElectronically signed by Rubia mart 01/24/2015 10:37 AM PDTdocumented in this encounter Plan of Treatment +--------+ + + + + | Date | Type | Specialty | Care Team | Description | +--------+ + + + + | 04/04/ | Telephone-S | Surgery | Orquidea Cristobal, | | | 2019 | sherrill | | ABRADING MACHINE TENDER [address] | | | | | | [place], [place] | | | | | | [address] | | | | | | [phone] | | | | | | | | +--------+ + + + + documented as of this encounter Visit Diagnoses Not on filedocumented in this encounter"
--- OUTSIDE RECORDS SUMMARY | ~2020-03-23 | XMS | Encounter Summary ---
Demographics + + + | Address | [address] | | | [place] [address] | + + + | Home Phone [...] + | Katalina Padilla | ECON | [address] | | | | | [place], [place] | | | | | [address] | | + + + + + | Ellie Vang | ECON | Unknown | | + + + + + Care Team Providers + +------+ + | Care Adult Basic Education Teacher Name | Role | Phone [...] | 2016 | on | Center at [facility] [address] | | | | | | [address] [facility] | | | | | | for Health and | | | | | | Healing, [facility] 2 | | | | | | [place], [place] | | | | | | [address] | | | | | | [phone] | | | +--------+ + + + [...] | | 2020 | sherrill | | DEHYDROGENATION OPERATOR HEAD [address] | | | | | | [place], [place] | | | | | | [address] | | | | | | [phone] | | | | | | | | +--------+ + + + + documented as of this encounter Visit Diagnoses Not on filedocumented in this encounter"
--- OUTSIDE RECORDS SUMMARY | ~2020-03-23 | XMS | Encounter Summary ---
Demographics + + + | Address | [address] | | | [place] [address] | + + + | Home Phone [...] + | Katalina Padilla | ECON | [address] | | | | | [place], [place] | | | | | [address] | | + + + + + | Ellie Vang | ECON | Unknown | | + + + + + Care Team Providers + +------+ + | Care Pallet Sorter Name | Role | Phone | + +------+ + | Fadi Goodrich DO | PCP | | + +------+ + Encounter Details +--------+ + + + + | Date | Type | Department | Care Team | Description | +--------+ + + + + | 07/06/ | Abstract | Digestive Health | Clinic, Surgery | | | 2016 | | [place] [address] [address] | | | | | | S [facility] | | | | | | for Health and | | | | | | [facility], [facility] 2 | | | | | | [place], [place] | | | | | | [address] | | | | | | [phone] | | | +--------+ + + + [...] | | 2019 | sherrill | | JIG AND FIXTURE REPAIRER [address] | | | | | | [place], [place] | | | | | | [address] | | | | | | [phone] | | | | | | | | +--------+ + + + + documented as of this encounter Visit Diagnoses Not on filedocumented in this encounter"
--- OUTSIDE RECORDS SUMMARY | ~2020-03-23 | XMS | Encounter Summary ---
Demographics + + + | Address | [address] | | | [place] [address] | + + + | Home Phone [...] + | Katalina Padilla | ECON | [address] | | | | | [place], [place] | | | | | [address] | | + + + + + | Ellie Vang | ECON | Unknown | | + + + + + Care Team Providers + +------+ + | Care Information Security Manager Name | Role | Phone | [...] Mailcode:[id number] | | | | | | [facility] | | | | | | [place], [place] | | | | | | [address] | | | | | | [phone] | | | +--------+ + + + [...] | | 2019 | cheduled | | DRYLAND FARMER [address] | | | | | | [place], [place] | | | | | | [address] | | | | | | [phone] | | | | | | | [...] | | | | | | 3/3, /. OPERATION #2: | | | | | [...] | | | | navigated a #5.5 Indonesian | | | | | | Ozzy [...] | | + +---------+ + + | [facility] DEPARTMENT OF | | | | | RADIOLOGY | | | | + +---------+ + + ANA/JAMEY CADET/ALEENA/TATO/INFU (05/14/1993 7:31 PM PDT) + + + [...] | | + +---------+ + + ANG/EXIST CHICHI/ALEENA/TATO/AMYU (05/14/1993 2:20 PM PDT) + + + [...] + + | Performing | Address | City/State[facility] | Phone Number | | Organization | | | | + +---------+ + + | [facility] DEPARTMENT OF | | | | [...] | | + +---------+ + + | [facility] DEPARTMENT OF | | | | [...] | | | | | | a#5.5 Indonesian sheath was | | | | | | secured into place. In | | | | | | a similar fashion, | | | | | | a#7.0 Indonesian sheath was | | | | | [...] | | | | | The #7 Indonesian Brite | | | | | | catheter was then | | | | | | navigated over a #0.035" | | | | | | tefloncoated Rock[place] | | | | | | guide [...] | | + +---------+ + + | [facility] DEPARTMENT OF | | | | | RADIOLOGY | | | | + +---------+ + + documented in this encounter Visit Diagnoses Not on filedocumented in this encounter
--- OUTSIDE RECORDS SUMMARY | ~2020-03-23 | XMS | Encounter Summary ---
Demographics + + + | Address | [address] | | | [place] [address] | + + + | Home Phone [...] [place], [place] | | | | | [address] | | + + + + + | Ellie Vang | ECON | Unknown | | + + + + + Care Team Providers + +------+ + | Care Installment Agent Name | Role | Phone | [...] | [address] | Lesly Gutiérrez [facility] | | | | | Mailcode: [facility] | [place] [address] | | | | | [place], [place] | | | | | | [address] | | | | | | [phone] | | | +--------+ + + + [...] e-mail confirmation and phone call from the [facility] Family Placement Co ordinator confirming the secured reservation. Patient will contact her Medicaid medical weems sportation broTUNDE william to coordinate her transportation to and from [facility] and [facility]. Anastacia Almaraz, Digital Advisor [phone] Graphite Grinder pager [phone] documented in this encounte r Plan of Treatment +--------+ + + + + | Date | Type | Specialty | Care Team | Description | +--------+ + + + + | 04/04/ | Telephone-S | Surgery | Orquidea Cristobal, | | | 2019 | sherrill | | OXIDE FURNACE TENDER [address] | | | | | | [place], [place] | | | | | | [address] | | | | | | [phone] | | | | | | | | +--------+ + + + + documented as of this encounter Visit Diagnoses Not on filedocumented in this encounter"
--- OUTSIDE RECORDS SUMMARY | ~2020-03-23 | XMS | Encounter Summary ---
Demographics + + + | Address | [address] | | | [place] [address] | + + + | Home Phone [...] + | Katalina Padilla | ECON | [address] | | | | | [place], [place] | | | | | [address] | | + + + + + | Ellie Vang | ECON | Unknown | | + + + + + Care Team Providers + +------+ + | Care Sales Exhibitor Name | Role | Phone | + [...] + + | 01/01/ | Emergency | [facility] Emergency | Fide Hester | | | 2017 - | | Department [address] | MD Raza [address] [facility] | | | | | [address] | [address] | | | 01/02/ | | [facility] | [place], [place] | | | 2017 | | [place], [place] | [address] | | | | | [address] | [phone] | | | | | [phone] | | | | | | | Jaime Yee, | | | | | | ANP [address] | | | | | | [address] | | | | | | [place], [place] | | | | | | [address] | | | | | | [phone] | | | | | | | | | | | | Sheree Aguiar MD | | | | | | [address] | | | | | | [place], [place] | | | | | | [address] | | | | | | | | | | | | Felix Cardoza, | | | | | | MANAGER ETL [address] | | | | | | [address] | | | | | | [place], [place] | | | | | | [address] | | | | | | [phone] | | | | | | | [...] ready for discharge. Thank you for choosing [facility] for your healthcare needs. Abdominal Hernia Repair: [...] living will and a durable power of mold carrier for health care. Bring a copy to [...] apply lotions, perfume s, deodorants, or nail czech. Do not shave the surgical site yourself. [...] driving, and getting back to your nor [facility] routine. When should you call your doctor? [...] Repair: Before Your Surgery", log into your PingTune a ccount at [email or web address]. You can enter U288 in the "Health Library" search box . Not on ScreenMedixhart? Review the ScreenMedixhart section of your After Visit Summary for directions on anjel w to sign up. Current as of: March 04, 2016 Content Version: 11.2 [id number] [employer]. Care instructions adapted under license by [facility] [place]. If you have questions about a medical condition or this instr uction, always ask your healthcare professional. [employer] disclaims any curly anty or liability for [...] changes in the way you eat. An assistance specialist to help you be more active [...] Prepare for Weight-Loss Surgery", log into your PingTune account at [email or web address]. You can enter C413 in the "[employer]" s earch box. Not on PingTune? Review the ScreenMedixhart section of your After Visit Summary for directions on anjel aguero to sign up. Current as of: May 08, 2016 Content Version: [id number] [employer]. Care instructions adapted under license by [facility] [place]. If you have questions about a medical condition or this instr uction, always ask your healthcare professional. [employer] disclaims any curly anty or liability for [...] | | 0 | | | | [id number]-GEN | mouth two times | | | [...] Ball MD - 01/02/2017 7:49 AM PDT [facility] [place] DEPARTMENT OF SURGERY EMERGENCY GENERAL SURGERY Division [...] wall hernias, laci hobbs was flown from [place] with abdominal pain from a recurrent, reducible [...] uss with Dr. Moore. Mary Ball MD [id number] [facility] [place] A [address] [facility] [place] Critical access hospital documented in this en counter H&P Notes [...] depression and bipolar disorder, who presented to [facility] ED for evaluation of acute on chronic abdominal pain. The pain was sharp, constant, and fo olga lidia at ventral hernia. The pain gradually worsened on Thursday, 12/30, then yesterday (12/31) salma denly and dramatically worsened at about 5 p.m. She initially presented to ED in [place], [place] last night at about 9 p.m. She could not keep down foods, vomited repeatedly. CT scan at [place] did not indicate incarcerated hernia but she [...] No vomiting since s he arrived at [facility]. In the ED Obs Unit she has [...] is part of bariatric program here at [facility]. She denies any shortness of breath, chest [...] hx of GI cancer. HCG negative in [place], has Nexplanon for contracepti on. Currently menstruating. [...] vagina Allergic rhinitis Anemia Anxiety Bipolar disorder ([facility]) Chronic wound infection of abdomen from 2010 Cough Depression Diverticulitis of colon Dizziness Glaucoma Heart burn Hemorrhoids Hernia of abdominal wall Incisional hernia, incarcerated 2012 Insomnia Irregular periods Kidney stone Leaking of urine Leg sore Lymphedema Morbid obesity with body mass index of 70 and over in adult ([facility]) Myalgia and myositis Nausea Neck pain Numbness Osteoarthritis of knee Palpitations Pneumonia Shortness of breath Staphylococcal infection Stroke ([facility]) TIA (transient ischemic attack) [...] Andie Brian Incisional hernia repair 03/01/2015 [facility]/ Dr. Cantu. Primary fascial closure [...] 81 mg by mouth once daily. CALCIUM CRB&MMH-S3-VUU81-GENIS ORAL Take 2 tablets by mouth two [...] History Narrative Updated 11/09/15 She lives in [place] with her mother and her sister (also her caregiver) lives in an apa rtment/duplex below. She has 2 grandchildren (age 4 and 7) who live with her daughter and son-in-law Her boyfriend lives in [place] FAMILY HISTORY: ROS: Unchanged from recent prior [...] to the ED as a transfer from [place] with concern for bowel obstruction and/or incarcerated [...] Pain HPI: Ms. Romero was flown from [place] for abdominal pain in the setting of [...] once daily., Disp : , Rfl: CALCIUM CRB&FII-Q4-ZOQ08-GENIS ORAL, Take 2 tablets by mouth two [...] vagina Allergic rhinitis Anemia Anxiety Bipolar disorder ([facility]) Chronic wound infection of abdomen from 2010 Cough Depression Diverticulitis of colon Dizziness Glaucoma Heart burn Hemorrhoids Hernia of abdominal wall Incisional hernia, incarcerated 2012 Insomnia Irregular periods Kidney stone Leaking of urine Leg sore Lymphedema Morbid obesity with body mass index of 70 and over in adult ([facility]) Myalgia and myositis Nausea Neck pain Numbness Osteoarthritis of knee Palpitations Pneumonia Shortness of breath Staphylococcal infection Stroke ([facility]) TIA (transient ischemic attack) [...] Andie Brian Incisional hernia repair 03/01/2015 [facility]/ Dr. Cantu. Primary fascial closure [...] Moore. Mary Ball MD General Surgery PGY1 [id number] Patient with ongoing pain. Still nontoxic appearing. Continue conservative management. Admi t EGS for obs. I saw and evaluated the patient. I agree with the findings and the plan of care as dequan han in the resident s note. Cande Moore MD [facility] EMERGENCY DEPARTMENT [address] [place] [address] documented in this en counter ED Notes Luz Maria Strickland RN - 01/02/2017 11:29 AM PDTRN Discharge Note: Condition at time of discharge: Patient A&O x4, vital signs stable, appears in no acute di stress and pain reported as tolerable. Patient transferred to [facility]. Discharge instructions: Patient provided discharge [...] 01/02/2017 11:25 AM PDTMedical transport here to scrap picker patient. Luz Maria Nieto RN - 01/02/2017 [...] patient appropriate technique. Patient is working [facility] to prepare of gastric intervention. General [...] 0.91 0.60 - 1.10 mg/dL EGFR - ZAMBIAN >60 >60 mL/min EGFR NON -ZAMBIAN >60 >60 mL/min SODIUM, PLASMA (LAB) 145 [...] 0.81 0.60 - 1.10 mg/dL EGFR - ZAMBIAN >60 >60 mL/min EGFR NON -ZAMBIAN >60 >60 mL/min SODIUM, PLASMA (LAB) 142 [...] EXCHANGE Result Value Ref Range DELTA PID [id number] Luz Maria Nieto R N - 01/02/2017 [...] focus of stay: Incarcerated hernia, referral from [facility] in [place]. Pertinent physical findings (Focused assessment, Pain/discomfort, Neuro, [...] focus of stay: incarcerated hernia, referral from [facility] in [place] Pertinent physical findings (Focused assessment, Pain/discomfort, Neuro, [...] she treats with goldbond medicated powder at [facility]. Open sore noted under right side. [...] pt has PRN 0.5-1 mg dilaudid available [id number], has been requiring 1 mg dose at [...] to the ED as a transfer from [place] with concern for bowel obstruction and/or incarcerated [...] events Care signed out to the oncoming LAP LAYER (Luc/Joselito) Leslie Deleon PA-C eny Diamond RN [...] Currently menstruating. Seen in emergency department in [place], where CT scan of her abdomen was [...] index of 70 and over in adult ([facility]) Myalgia and myositis Nausea Neck pain Numbness Osteoarthritis of knee Palpitations Pneumonia Shortness of breath Staphylococcal infection Stroke ([facility]) TIA (transient ischemic attack) [...] Andie Brian Incisional hernia repair 03/01/2015 [facility]/ Dr. Cantu. Primary fascial closure and scar excision Medications Prior to Admission Medications Prescriptions Last Dose Informant Patient Reported? Taking? ALPRAZolam 1 mg oral tablet Yes No Sig: Take 1 mg by mouth three times daily as needed for anxiety. CALCIUM CRB&RHM-B7-QCS50-GENIS ORAL Yes No Sig: Take 2 tablets [...] complication, with long-term current use of insulin ([facility]) E66.01 Morbid obesity, unspecified obesity type PLAN, [...] PDTPt reports to ED on referral from [facility] for an incarcerated hernia. Pt reports pain [...] RN - 01/01/2017 5:24 AM KELSIE Mcgrath [place] ER Abdominal pain Hernia surgery last year which came back very soon after Presented today with abdominal pain, Nausea and vomiting. CT scan: 2 hernias shown 5ft 2 in 385lbs 4mg Morphine IV x 3 22G IV Left Hand Charley CARVAJAL, Juventino - Amanda 01/01/2017 4:19 AM PDTEmergency Medicine Transfer Note 41 year old female presenting [place] emergency department with Abd pain and vomiting [...] 8:30 AM PDTTeaching note not neede d. [facility] Sharon diazTerri - 01/01/2017 8:05 AM PDTLF GR: no changes, bp 101/55, hr 100, SAT 94% ra. [facility] Eileen veritoTerri horton - 01/01/2017 7:12 AM PDTPer Monica at dispatch FW has landed in [place]. ETA to [facility] by [facility] Alexia Grissom - 01/01/2017 4:35 AM PDTReferring advised -FW should be at [facility] in about 30 mins to scrap picker the pt. 17 4[facility] [facility] Alexia Neal - 01/01/2017 4:23 AM PDTED charge notified an d AOD/Bed Mgr paged. [facility] Alexia Oconnell - 01/01/2017 4:13 AM PDTDr. Rocha connected with Dr. Plunkett, P t wgt 174K, came to referring c/o severe abd pain x 1 day, vomited about 4 times, pt describ ed pain as hernia pain, had been dx'd with hernia in 2015 and had one corrected at [facility], pt is scheduled to see bariatric surgery [...] by Alexia Neal at 02/2017 4:23 AM PDTFormerly [facility] Alexia Mckeon - 01/01/2017 4:11 [...] | | 2020 | chesteve | | MANAGER ETL [address] | | | | | | [place], [place] | | | | | | [address] | | | | | | [phone] | | | | | | | [...] MARQU[facility] | [address] | [place], [place] | | | JUSTINE DAWN OF CARE | [address] | [address] | | | TESTS | | | [...] + + + + | [facility] | [address] | [place] [address] | | | SERVICES, [place] | CLARENCE [...] MARQUAM | [address] | [place], [place] | | | [place] POINT OF CARE | [address] | [address] | | | TESTS | | | [...] [facility] | [address] | [place] [address] | | | SERVICES, CORE | [address] [...] + + + + + | [facility] | [address] | [place] [address] | | | CLAIRE, [place] | CLARENCE [...] organisms may result in clinically misleading | [facility] | | information due to the low numbers and /or mixture of organisms | | | present. Recollection is suggested if clinically indicated. | | + + + + + + + + | Performing | Address | City/State/Zipcode | Phone Number | | Organization | | | | + + + + + | [facility] | [address] | [place] [address] | | | [facility] | | | | + + + [...] + + | [facility] | [address] | [place] [address] | | | SERVICES, CORE | CLARENCE [...] KW[facility] | [address] | [place], [place] | | | [place] POINT OF CARE | [address] | [address] | | | TESTS | | | [...] + + + + | [facility] | [address] | [place] [address] | | | SERVICES, | [address] [...] [facility] | [address] | [place] [address] | | | SERVICES, | [address] [...] + + + + | [facility] | [address] | [place] [address] | | | SERVICES, CORE | [address] [...] valves (2.5 - 3.5) INR APTT | [facility], CORE | | Therapeutic Range: (75 - 120) sec | | | Heparin levels of 0.35 - 0.7 U/mL | | + + + + + + + + | Performing | Address | City/State/Zipcode | Phone Number | | Organization | | | | + + + + + | [facility] | [address] | [place] [address] | | | [facility], CORE | [address] | | | [...] MDRD equation recommended by the | [facility] | | National Kidney Disease Education [...] + + + + | [facility] | [address] | [place] [address] | | | SERVICES, CORE | [address] | | | + + + + + ED INFORMATION EXCHANGE (01/01/2017 8:22 AM PDT) + + + + + + | Component | Value | Ref Range | Performed | Pathologist | | | | | At | Signature | + + + + + + | DELTA PID | [id number] | | [facility] | | | | [id number] | | MEDICAL | | | | [...] ---- | | | RADHA GOODRICH at [facility] | | | [facility] Unknown Primary Care | | | Unknown - Current Radha Goodrich DO | | | [phone] Primary Care | | | Unknown - Current | | + + + + + + + + | Performing | Address | City/State/Zipcode | Phone Number | | Organization | | | | + + + + + | [facility] | [address] | [place], [place] | [phone] | | TECHNOLOGIES | [address] | [address] | | + + + + + [...] | | | HOURS, First dose on [facility] 01/01/17 | | AM PDT | | [...] TIMES DAILY | | | NEEDED, Starting Jasmyne 01/01/17 at | | | 1744, Until [...] | | | | First dose on [facility] 01/01/17 at 2100, | | | | [...] | | | DAILY, First dose on [facility] 01/01/17 | | AM PDT | | [...] | | TIMES DAILY, First dose on [facility] | | | 01/01/17 at 2200, Until | | | Discontinued | | + +---+ | | | + +---+ + +-------+ +--------+---+---+ | magnesium oxide (MAG-OX) tablet | Given | 01/03/20 | 400 mg | | | | 400 mg 400 mg, oral, DAILY, | | 17 8:51 | | | | | First dose on [facility] 01/01/17 at 1945, | | AM PDT [...] | | | | ONCE, 1 dose, [facility] 01/01/17 at 0945 | | AM PDT [...]
--- OUTSIDE RECORDS SUMMARY | ~2020-03-23 | XMS | Encounter Summary ---
Demographics + + + | Address | [address] | | | [place] [address] | + + + | Home Phone | | + + + | Preferred Language | Unknown | + + + | Marital Status | Single | + + + | Hindu Affiliation | NON | + + + [...] | + + + + + | Katalnia Padilla | ECON | [address] | | | | | [place], [place] | | | | | [address] | | + + + + + | Ellie Vang | ECON | Unknown | | + + + + + Care Team Providers + +------+ + | Care Casino Assistant Manager Name | Role | Phone | + +------+ + | Kenyatta Cardenas MD | PCP | | + +------+ + Encounter Details +--------+--------+ + + + | Date | Type | Department | Care Team | Description | +--------+--------+ + + + | 08/18/ | Travel | | | | | [...] | | 2020 | sherrill | | PSYCHOLOGICAL TESTS SALES AGENT [address] | | | | | | [place] | | | | | | [address] | | | | | | [phone] | | | | | | | | +--------+ + + + + documented as of this encounter Visit Diagnoses Not on filedocumented in this encounter"
--- OUTSIDE RECORDS SUMMARY | ~2020-03-23 | XMS | Encounter Summary ---
Demographics + + + | Address | [address] | | | [place] [address] | + + + | Home Phone [...] + | Katalina Padilla | ECON | [address] | | | | | [place], [place] | | | | | [address] | | + + + + + | Ellie Vang | ECON | Unknown | | + + + + + Care Team Providers + +------+ + | Care Side Panel Hanger Name | Role | Phone | + [...] | | | | | | [place], [place] | | | | | | [address] | | | | | | [phone] | | | +--------+ + + + [...] | | 2019 | sherrill | | SEWING INSPECTOR [address] | | | | | | [place], [place] | | | | | | [address] | | | | | | [phone] | | | | | | | | +--------+ + + + + documented as of this encounter Visit Diagnoses Not on filedocumented in this encounter"
--- OUTSIDE RECORDS SUMMARY | ~2020-03-23 | XMS | Encounter Summary ---
Demographics + + + | Address | [address] | | | [place] [address] | + + + | Home Phone [...] + | Katalina Padilla | ECON | [address] | | | | | [place], [place] | | | | | [address] | | + + + + + | Ellie Vang | ECON | Unknown | | + + + + + Care Team Providers + +------+ + | Care Labor Service Representative Name | Role | Phone | [...] [address] | | | | | (HCC) | [address] | [address] | | | | | Procedures | [place], [place] | [place], [place] | | | | | CONSULT TO | [address] | [address] | | | | | CAR | Phone: | Phone: | | | | | PREVENTATIVE | [phone] | [phone] | | | | | [facility] - | Fax: | Fax: | | | | | LIPIDS | [phone] | [phone] | +--------+--------+ + + + + Encounter Details +--------+---------+ + + + | Date | Type | Department | Care Team | Description | +--------+---------+ + + + | 09/11/ | Office | Cardiology | LissethOlga Lidia, | Morbid obesity with | | 2017 | Visit | Preventive at [facility] | [address] | BMI of 70 and over, | | | | [address] | [address] | adult (HCC) (Primary | | | | Center for [facility] | [place], [place] | Dx) | | | | and Healing, | [address] | | | | | [address] | | | | | | [place], [place] | | | | | | [address] | | | | | | [phone] | | | +--------+---------+ + + + [...] (389 lb 3.2 | 09/11/2017 2:29 PM | | | | oz) | PST | | + + + + + | Height | 154.9 cm (5' 1") | 09/11/2017 2:29 PM | | | | | PST | | + + + + + | Body Mass Index | 73.54 | 09/11/2017 2:29 PM | | | | | PST | | + + + + + documented in this encounter Patient Instructions Patient Instructions Olga Lidia Montanez RD - 09/11/2017 2:30 PM PSTNutrition appointment, Dietitian: Olga Lidia Montanez RD, LD [facility] Bariatric department (to reschedule classes): [phone] Goals: 1. Try to stop buying Pop-Tarts 2. Replace afternoon snack (think of this as lunch) with vegetables or fruit -cucumbers, carrots, broccoli, cauliflower, etc. -try making ranch dip w/ nonfat plain yogurt (regular or Syrian) (or mix yogurt w/ salsa; o r chipotle hot sauce & cheyenne river juice) 3. Snack ideas: -fruit -vegetables (with hummus or yogurt dip) -Syrian yogurt - light (have w/ fruit if you're still hungry) -applesauce - unsweetened, w/ lowfat string cheese -1/4 cup nuts -lowfat string cheese -low-fat or non-fat cottage cheese w/ tomatoes 4. Aim for 60-80 grams of protein a day (see list) 5. Add Syrian yogurt to breakfast Heart Protection Kitchen from [facility] Healthy eating made simple. What: FREE heart-healthy cooking demonstrations led by guest mold stacker and nutrition experts. Samples are provided! Where: [facility] ([facility]), September, 2nd floor teaching kitchen When: All classes from 11:00am-12:00pm ? October 12 (led by Dr. Paulino Carreno MD) Please contact Keerthi Boyer at [phone] or email at [email or web address] for information on upcoming classes and to register. Space is limited - reserve your seat today! Want more info on what to eat? Watch the [employer] video, "Healthy Eating 101," at [email or web address] documented in this encounter Progress Notes Olga Lidia Montanez RD - 09/11/2017 2:30 PM PSTFormatting of this note might be different fro m the original. [facility], Nutrition Consultation Referring provider: Dr. Randell Franks MD Referring diagnosis: obesity, HF, DM2 Visit type: Initial; flhk-ti-ozkh visit with patient Questions/Information desired today: Hoping [...] restarting the bariatric program; getting PT in [place] & has nutrition classes scheduled. Still has bariatric notebooks at home. Per KidoZen message from Dr. Pandey 09/10/17: "Just tell [...] HTN Diabetes mellitus type 2 without retinopathy (HCC) Hyperlipidemia Ventral hernia without obstruction or gangrene [...] soda (24 oz/d), 1% milk (2% at GF's) (8-10 oz/d) At mom's house: B: cereal (< 170 kcal) & 1% milk; occ w/ applesauce or Syrian yogurt No L S (3pm): pop-tart or [...] too expensive. Occ fruit bowls from [facility]. Vegetables: every day w/ dinner - [...] in PT 2x/week for bariatric program (in [place]) UBW: 385-391 lbs Max weight: 529 lbs Weight history: lost from 495 lbs to 383 lbs in 2831-1199 on Atkins diet ANTHROPOMETRICS: Height: Ht Readings from Last 1 Encounters: 09/11/17 1.549 m (5' 1") Weight: Wt Readings from Last 1 Encounters: 09/11/17 176.5 kg (389 lb 3.2 oz) 11/28/16 179.443 kg (395 lb 10 oz) Body mass index is 73.54 kg/m. Weight mold insert changer the past year: 6 lb wt [...] weight loss; anticipate excellent compliance in the bari tomeka surgery program. Currently eating energy-dense/nurient-poor foods in [...] of protein a day - add light Syrian yogurt to breakfast; include lean protein with PM snack/lunch 3. D/c carbonated beverages (e.g., diet soda); replace with water, Crystal Light, diet deca f tea, or other calorie-free still beverage Contact information was provided; call or send K[employer]en message to dietitian with any questi ons. Olga Lidia Montanez RD, LD documented in this en counter Plan of Treatment +--------+ + + + + | Date | Type | Specialty | Care Team | Description | +--------+ + + + + | 04/04/ | Telephone-S | Surgery | Orquidea Cristobal, | | | 2019 | sarahisteve | | [employer] DESIGNER [address] | | | | | | [place], [place] | | | | | | [address] | | | | | | [phone] | | | | | | | | +--------+ + + + + documented as of this encounter Visit Diagnoses + + | Diagnosis | + + | Morbid obesity with BMI of 70 and over, adult (HCC) - Primary | + + documented in this encounter
--- OUTSIDE RECORDS SUMMARY | ~2020-03-23 | XMS | Encounter Summary ---
Demographics + + + | Address | [address] | | | [place] [address] | + + + | Home Phone [...] + | Katalina Padilla | ECON | [address] | | | | | [place], [place] | | | | | [address] | | + + + + + | Ellie Vang | ECON | Unknown | | + + + + + Care Team Providers + +------+ + | Care Pump Installer Name | Role | Phone | + +------+ + | Jorje Hill MD | PCP | | + +------+ + Encounter Details +--------+ + + + + | Date | Type | Department | Care Team | Description | +--------+ + + + + | 08/23/ | Pharmacy | Outpatient Retail | | | | 2019 | Visit | [facility] | | | | | | [address] | | | | | | [place], [place] | | | | | | [address] | | | | | | [phone] | | | +--------+ + + + [...] | | 2019 | sherrill | | AIRPORT MANAGER [address] | | | | | | [facility] [place] [place] | | | | | | [address] | | | | | | [phone] | | | | | | | | +--------+ + + + + documented as of this encounter Visit Diagnoses Not on filedocumented in this encounter"
--- OUTSIDE RECORDS SUMMARY | ~2020-03-23 | XMS | Encounter Summary ---
Demographics + + + | Address | [address] | | | [place] [address] | + + + | Home Phone [...] [place], [place] | | | | | [address] | | + + + + + | Ellie Vang | ECON | Unknown | | + + + + + Care Team Providers + +------+ + | Care Cylinder Machine Operator Name | Role | Phone [...] | | 2020 | sherrill | | CHROMIUM PLATER [address] | | | | | | [place] | | | | | | [address] | | | | | | [phone] | | | | | | | | +--------+ + + + + documented as of this encounter Visit Diagnoses Not on filedocumented in this encounter"
--- OUTSIDE RECORDS SUMMARY | ~2020-03-23 | XMS | Encounter Summary ---
Demographics + + + | Address | [address] | | | [place] [address] | + + + | Home Phone [...] [place], [place] | | | | | [address] | | + + + + + | Ellie Vang | ECON | Unknown | | + + + + + Care Team Providers + +------+ + | Care Oyster Culler Name | Role | Phone | + +------+ + | Kenyatta Cardenas MD | PCP | | + +------+ + Encounter Details +--------+--------+ + + + | Date | Type | Department | Care Team | Description | +--------+--------+ + + + | 05/05/ | Travel | | | | | [...] | | 2020 | sarahiduled | | INSTALLATION HELPER [address] | | | | | | [place], [place] | | | | | | [address] | | | | | | [phone] | | | | | | | | +--------+ + + + + documented as of this encounter Visit Diagnoses Not on filedocumented in this encounter"
--- OUTSIDE RECORDS SUMMARY | ~2020-03-23 | XMS | Encounter Summary ---
Demographics + + + | Address | [address] | | | [place] [address] | + + + | Home Phone [...] + | Katalina Padilla | ECON | [address] | | | | | [place], [place] | | | | | [address] | | + + + + + | Ellie Vang | ECON | Unknown | | + + + + + Care Team Providers + +------+ + | Care Relief Worker Name | Role | Phone | [...] | | 2019 | | Preventive at [facility] | MD [address] | (PHENTERMINE 37.5 mg | | | | [address] | [place], [place] | ) | | | | [facility] | [address] | | | | | and [place], | [phone] | | | | | [place] [address] | | | | | | [place], [place] | | | | | | [address] | | | | | | [phone] | | | +--------+--------+ + + + [...] Seen By Ordering Provider: Last Appointment in [facility] was on 04/13 at 3:39 pm with Randell Franks MD. Follow Up Plan: Next Appointment in [facility] is on 01/07/19 at 9:15 am with Jessica Franks MD. Please review and sign if appropriate documented in this encou er Plan of Treatment +--------+ + + + + | Date | Type | Specialty | Care Team | Description | +--------+ + + + + | 04/04/ | Telephone-S | Surgery | Orquidea Cristobal, | | | 2019 | cheduhipolito | | BIG DATA HADOOP DEVELOPER [address] | | | | | | [place] | | | | | | [address] | | | | | | [phone] | | | | | | | | +--------+ + + + + documented as of this encounter Visit Diagnoses Not on filedocumented in this encounter"
--- OUTSIDE RECORDS SUMMARY | ~2020-03-23 | XMS | Encounter Summary ---
Demographics + + + | Address | [address] | | | [place] [address] | + + + | Home Phone [...] + | Katalina Padilla | ECON | [address] | | | | | [place], [place] | | | | | [address] | | + + + + + | Ellie Vang | ECON | Unknown | | + + + + + Care Team Providers + +------+ + | Care Transportation Engineer Name | Role | Phone | + +------+ + | Fadi Goodrich DO | PCP | | + +------+ + Encounter Details +--------+ + + + + | Date | Type | Department | Care Team | Description | +--------+ + + + + | 03/16/ | Telephone | Digestive Health | Ronna Clarke, | | | 2018 | | Center at [facility] [address] | ACNP [address] | | | | | [address] | Ave [place], [place] | | | | | for Health and | [address] | | | | | [facility], [facility] | [phone] | | | | | [place], [place] | | | | | | [address] | | | | | | | [...] this encounter Miscellaneous Notes Telephone Encounter - Melissa Garay RN - 03/16/2018 1:56 PM PDTCalled Elzbieta to notify her that the wound culture came back negative and she states that she called and left a voi cemail that she started on the soft diet yesterday and after eating chili started having kai n in her chest and felt "uncomfortable" after some time it subsided. She states the same thi ng happened today with her protein shake and cream of wheat. Recommended that she take it sl ow and try again tomorrow with small portions, eat very slowly, take small bites, and start with a blander and less dense food choice. Encouraged her to call back if symptoms continue. She states understanding and agreement with plan. documented in this encounter Plan of Treatment +--------+ + + + + | Date | Type | Specialty | Care Team | Description | +--------+ + + + + | 04/04/ | Telephone-S | Surgery | Orquidea Cristobal, | | | 2019 | sherrill | | TRADING ASSISTANT [address] | | | | | | [place], [place] | | | | | | [address] | | | | | | [phone] | | | | | | | | +--------+ + + + + documented as of this encounter Visit Diagnoses Not on filedocumented in this encounter
--- OUTSIDE RECORDS SUMMARY | ~2020-03-23 | XMS | Encounter Summary ---
Demographics + + + | Address | [address] | | | [place] [address] | + + + | Home Phone [...] + | Katalina Padilla | ECON | [address] | | | | | [place], [place] | | | | | [address] | | + + + + + | Ellie Vang | ECON | Unknown | | + + + + + Care Team Providers + +------+ + | Care Tool Room Machinist Name | Role | Phone | + +------+ + | Jorje Hill MD | PCP | | + +------+ + Reason for Visit +--------+--------+ + | Reason | Onset | Comments | | | Date | | +--------+--------+ + | Other | 02/10/ | Paperwork | | | 2017 | | +--------+--------+ + Encounter Details +--------+ + + + + | Date | Type | Department | Care Team | Description | +--------+ + + + + | 02/10/ | Telephone | Cardiology | Randell Franks, | Other (Paperwork) | | 2017 | | Preventive at [facility] | MD [address] | | | | | [address] | [place], [place] | | | | | [facility] | [address] | | | | | and [place], | [phone] | | | | | [place] [address] | | | | | | [facility] [place] | | | | | | [address] | | | | | | [phone] | | | +--------+ + + + [...] this encounter Miscellaneous Notes Telephone Encounter - Rhona Mccullough MA - 02/11/2017 11:25 AM PDTI printed the referral for bariatric surgery and faxed it to the [facility] Transportation fax # [phone]. I call ed the patient to let her know it has been faxed today. elephone Encounter - Kate Meraz RN - 02/11/2017 10:39 AM PDTRouting to Rhona FARAH to follow up on request and call pt back. elephone Encounter - Estrella Omalley - 02/10/2017 9:53 AM PDTPatient calls asking for the following paperwork to be filled out: Nora echeverria stating patient was referred to the [facility] program by Dr. Franks as well as all her [facility] appointments. It should be faxed to: [facility] Transportation Patient needs this done by: As soon as we can Okay to send Mychart Response? n/a The best phone number to reach the patient today is [phone] please call patient when f ax has been sent. ~~~~ ROUTE TO CAR TRIAGE POOL ~~~~~ documented in this en counter Plan of Treatment +--------+ + + + + | Date | Type | Specialty | Care Team | Description | +--------+ + + + + | 04/04/ | Telephone-S | Surgery | Orquidea Cristobal, | | | 2019 | chesteve | | AGENCY RECRUITER [address] | | | | | | [place], [place] | | | | | | [address] | | | | | | [phone] | | | | | | | | +--------+ + + + + documented as of this encounter Visit Diagnoses Not on filedocumented in this encounter"
--- OUTSIDE RECORDS SUMMARY | ~2020-03-23 | XMS | Encounter Summary ---
Demographics + + + | Address | [address] | | | [place] [address] | + + + | Home Phone [...] [place], [place] | | | | | [address] | | + + + + + | Ellie Vang | ECON | Unknown | | + + + + + Care Team Providers + +------+ + | Care Aeronautics Teacher Name | Role | Phone | [...] | 2018 | Visit | Preventive at [facility] | [address] | mellitus without | | | | [address] | [place], [place] | complication, with | | | | [facility] | [address] | long-term current | | | | and Healing, | [phone] | use of insulin (HCC) | | | | [address] | | (Primary Dx); | | | | [place], [place] | | Chronic right-sided | | | | [address] | | heart failure (HCC) | | | | [phone] | | | +--------+---------+ + + + [...] documented as of this encounter Progress Notes Gissell Clements MD - 06/04/2018 10:35 AM PST FOLLOW-UP [...] management of her heart failure by her Boiler Attendant 3) Check A1c, lipids 4) Await bariatric surgery in February 2018 5) Continue phentermine 37.5 mg daily 6) Continue wound care, non-pressure ambulation of right foot wound 7) Follow-up 4-6 months In the interim, the patient underwent bariatric surgery and [facility]. Today, the patient reports the [...] 06/23 - She is working with the slicing machine feeder in her office - She is taking phentermine 37.5mg daily and topiramate 50 BID- started taking it again aft er 1 week after her surgery - She is taking fenofibrate and watching her intake of fatty foods - Main complaint is abdominal pain, fatigue and sick of extra skin. She is hoping to see so meone for surgery of her extra skin after [...] tongue once daily., Disp: , Rfl: CALCIUM CRB&CSC-G0-IRS93-GENIS ORAL, Take 2 tablets by mouth two [...] 3.19 11/28/2016 Lab Results Component Value Date [id number] 88.6 05/27/2018 Lab Results Component Value Date [...] weight of 320lbs. Plan to work with slicing machine feeder from bariatric surgery, identify etio logy of [...] is currently being managed well by her Boiler Attendant with diuretics and mainte nance of her [...] Gissell Clements MD Fellow, Cardiovascular Medicine Pager [id number] signed by Gissell Clements MD at 06/04/2018 [...] | | 2019 | chesteve | | MARINE STRUCTURAL WELDER [address] | | | | | | [place], [place] | | | | | | [address] | | | | | | [phone] | | | | | | | [...]
--- OUTSIDE RECORDS SUMMARY | ~2020-03-23 | XMS | Encounter Summary ---
Demographics + + + | Address | [address] | | | [place] [address] | + + + | Home Phone | | + + + | Preferred Language | Unknown | + + + | Marital Status | | + + + | Hoahaoism Affiliation | Unknown | + + + | Race | White | + + + | Ethnic Group | Not or | + + + Author + + + | Author | [facility] | | | and Jeffana | + + + | Organization | [facility] | | [...] Providers + +------+ + | Care Production Line Operator Name | Role | Phone | + +------+ + PCP | Unavailable | + +------+ + Encounter Details +--------+ + + + + | Date | Type | Department | Care Team | Description | +--------+ + + + + | 02/17/ | Orders Only | [facility] | Provider, | Pure | | 2018 | | SYSTEM GENERIC OP | MD [address] | hyperglyceridemia; | | | | CONVERSION [address] | [address] | Hypokalemia; | | | | [address] [place], [place] | [place] [address] | Dehydration; | | | | [address] | | Hyperuricemia | | | | [phone] | | without signs of | | [...] 03/29/ | Office | Cardiology | Sulema Altamiarno | | | 2019 | Visit | | [address] | | | | | | [address] | | | | | | [place] [address] | | | | | | [phone] | | | | | | | | +--------+ + + + + | 04/18/ | Procedure | Neurology | Camille De La Paz, | | | 2019 | visit | | [address] | | | | | | [address] | | | | | | [place] [address] | | | | | | [phone] | | | | | | | [...]
--- OUTSIDE RECORDS SUMMARY | ~2020-03-23 | XMS | Encounter Summary ---
Demographics + + + | Address | [address] | | | [place] [address] | + + + | Home Phone [...] + | Katalina Padilla | ECON | [address] | | | | | [place], [place] | | | | | [address] | | + + + + + | Ellie Vang | ECON | Unknown | | + + + + + Care Team Providers + +------+ + | Care Shrimp Cleaner Name | Role | Phone | + +------+ + | Fadi Goodrich DO | PCP | | + +------+ + Encounter Details +--------+ + + + + | Date | Type | Department | Care Team | Description | +--------+ + + + + | 03/28/ | Abstract | Cardiology | Randell Franks, | | | 2014 | | Preventive at [facility] | MD [address] | | | | | [address] | [place], [place] | | | | | [facility] | [address] | | | | | and [place], | [phone] | | | | | [address] | | | | | | [facility] [place] | | | | | | [address] | | | | | | [phone] | | | +--------+ + + + [...] | | 2020 | cheduhipolito | | DIRECTOR INFORMATICS [address] | | | | | | [place], [place] | | | | | | [address] | | | | | | [phone] | | | | | | | | +--------+ + + + + documented as of this encounter Visit Diagnoses Not on filedocumented in this encounter"
--- OUTSIDE RECORDS SUMMARY | ~2020-03-23 | XMS | Encounter Summary ---
[...] + | Katalina Padilla | ECON | [address] | | | | | [place], [place] | | | | | [address] | | + + + + + | Ellie Vang | ECON | Unknown | | + + + + + Care Team Providers + +------+ + | Care Activities Director Scouting Name | Role | Phone | + [...] | Telephone | Digestive Health | [facility] rBian, | Other (labs) | | 2012 | | Center [address] | [address] | | | | | [address] Mailcode: CH4S | [facility] | | | | | [facility] | [place], [place] | | | | | and [place], | [address] | | | | | [place] [address] | [phone] | | | | | Floor [place], [place] | | | | | | [address] | | | | | | [phone] | | | +--------+ + + + [...] Dumont - 06/20/2013 9:42 AM PSTJocelynn from [facility] called stat ing pt called them saying she needed to have labs done but didn't know for what or what type of labs. Lab needs us to fax over Diagnosis and Request for appropriate labs on their Reque st form. [phone] fax [phone] ph dequan han in this encounter Plan of Treatment +--------+ + + + + | Date | Type | Specialty | Care Team | Description | +--------+ + + + + | 04/04/ | Telephone-S | Surgery | Orquidea Cristobal, | | | 2020 | cheloveled | | MANAGER VALIDATION [address] | | | | | | [place], [place] | | | | | | [address] | | | | | | [phone] | | | | | | | | +--------+ + + + + documented as of this encounter Visit Diagnoses Not on filedocumented in this encounter"
--- OUTSIDE RECORDS SUMMARY | ~2020-03-23 | XMS | Encounter Summary ---
Demographics + + + | Address | [address] | | | [place] [address] | + + + | Home Phone | | + + + | Preferred Language | Unknown | + + + | Marital Status | | + + + | Anabaptism Affiliation | Unknown | + + + | Race | White | + + + | Ethnic Group | Not or | + + + Author + + + | Author | [facility] | | | and Jeffana | + + + | Organization | [facility] | | | and [...] Team Providers + +------+ + | Care Parole Hearing Officer Name | Role | Phone [...] Closed | | Audiology | Diagnoses | [place], | [place], | | | | | Audio and | Shamar Feliciano MD | [place], [place] | | | | | tymps fax | [address] | CCC-A [address] | | | | | report/no | [address] | | | | | previous | [place], | [address] [place] | | | | | audiogram | [place] [address] | [place], [place] | | | | | Procedures | Phone: | [address] Phone: | | | | | OFFICE VISIT | [phone] | [phone] | | | | | REGULAR | Fax: | Fax: | | | | | | [phone] | [phone] | +--------+--------+ + + + + Encounter Details +--------+---------+ + + + | Date | Type | Department | Care Team | Description | +--------+---------+ + + + | 05/26/ | Office | [facility] [place] | Sherron Freedman, | Normal hearing noted | | 2019 | Visit | AUDIOLOGY AND | CCC-A [address] | on examination | | | | HEAR[facility] SERVICES | [address] [place] | (Primary Dx); | | | | [address] | [place] [address] | Pressure sensation | | | | [address] [place] | [phone] | in both ears | | | | [place] [address] | | | | | | [phone] | | | +--------+---------+ + + + [...] as of this encounter Progress Notes Sherron Freedman MS CCC-A - 05/26/2019 1:30 PM PDTReferring Provider: [...] related to Meni ere's. Follow-up care with WINDY Nuñez. Thank you. documented in thi s encounter [...] [address] | | | | | | [place] [address] | | | | | | [phone] | | | | | | | | +--------+ + + + + | 04/18/ | Procedure | Neurology | Camille De La Paz, | | | 2019 | visit | | [address] | | | | | | [address] | | | | | | [place] [address] | | | | | | [phone] | | | | | | | [...]
--- OUTSIDE RECORDS SUMMARY | ~2020-03-23 | XMS | Encounter Summary ---
Demographics + + + | Address | [address] | | | [place] [address] | + + + | Home Phone [...] + | Katalina Padilla | ECON | [address] | | | | | [place], [place] | | | | | [address] | | + + + + + | Ellie Vang | ECON | Unknown | | + + + + + Care Team Providers + +------+ + | Care Teenage Program Director Name | Role | Phone | + +------+ + | Fadi Goodrich DO | PCP | | + +------+ + Reason for Visit + +--------+ + | Reason | Onset | Comments | | | Date | | + +--------+ + | Discharge from | 11/21/ | | | hospital | 2016 | | + +--------+ + Encounter Details +--------+ + + + + | Date | Type | Department | Care Team | Description | +--------+ + + + + | 11/21/ | Telephone | Cardiology General | Grisel Pearl, | Discharge from | | 2016 | | at [facility] [address] | VALUATION MANAGER [address] [facility] | | | | [facility] for | [place], [place] | | | | | Health and Healing, | [address] | | | | | [facility] | [phone] | | | | | Floor [place], [place] | | | | | | [address] | | | | | | [phone] | | | +--------+ + + + [...] this encounter Miscellaneous Notes Telephone Encounter - Grisel Pearl NP - 11/22/2015 9:37 AM PDTFormatting of this not e might be different from the original. I called post discharge Sees her pcp Thursday will get lab work. Feeling ok. Still kind of dizzy with walking. Wt Readings from Last 1 Encounters: 11/21/15 186.111 kg (410 lb 4.8 oz) Her Weight is 411. Is in the green zone. We reviewed meds. She will stop the pseudoephedrine. She is aware no NSAIDS Asks appropriate questions. She will call pcp if weight up or down or she goes to yellow or red zone. Her PCP is getting her in with area feed mill supervisor. Plan to d/c apt with Cyndi Meier. KRISHNA Huertas documented in this encounter Plan of Treatment +--------+ + + + + | Date | Type | Specialty | Care Team | Description | +--------+ + + + + | 04/04/ | Telephone-S | Surgery | Orquidea Cristobal, | | | 2020 | cheduled | | MICROMATIC HONE OPERATOR [address] | | | | | | [place], [place] | | | | | | [address] | | | | | | [phone] | | | | | | | | +--------+ + + + + documented as of this encounter Visit Diagnoses Not on filedocumented in this encounter"
--- OUTSIDE RECORDS SUMMARY | ~2020-03-23 | XMS | Encounter Summary ---
Demographics + + + | Address | [address] | | | [place] [address] | + + + | Home Phone [...] + | Katalina Padilla | ECON | [address] | | | | | [place], [place] | | | | | [address] | | + + + + + [...] S | | | | | ([facility]LY [facility]) | [address] | [address] | | | | | Procedures | [place], [place] | [place], [place] | | | | | CONSULT TO | [address] | [address] | | | | | CAR | Phone: | Phone: | | | | | PREVENTATIVE | [phone] | [phone] | | | | | [facility] - | Fax: | Fax: | | | | | LIPIDS | [phone] | [phone] | +--------+--------+ + + + + Reason [...] | | 2 diabetes | [place], | [place], [place] | | | | | mellitus | [place] [address] | [address] | | | | | without | Phone: | Phone: | | | | | complication | [phone] | [phone] | | | | | (HCC) | Fax: | Fax: | | | | | Procedures | [phone] | [phone] | | | | | HI EST | | | | | | [...] | 2017 | Visit | [facility]ive at [facility] | MD [address] | hypertension | | | | [address] | [facility] [place] | (Primary Dx); Right | | | | [facility] | [address] | heart failure (HCC) | | | | and Healing, | [phone] | | | | | [address] | | | | | | [place], [place] | | | | | | [address] | | | | | | [phone] | | | +--------+---------+ + + + [...] 1 tablet by mouth once daily CALCIUM CRB&OLX-L3-AGR59-GENIS ORAL Take 2 tablets by mouth two [...] | | 2019 | cheduled | | BLAST FURNACE BLOWER [address] | | | | | | [place], [place] | | | | | | [address] | | | | | | [phone] | | | | | | | | +--------+ + + + + documented as of this encounter Visit Diagnoses + + | Diagnosis | + + | Essential hypertension - Primary | + + | Right heart failure (HCC) Congestive heart failure, unspecified | + + documented in this encounter
--- OUTSIDE RECORDS SUMMARY | ~2020-03-23 | XMS | Encounter Summary ---
Demographics + + + | Address | [address] | | | [place] [address] | + + + | Home Phone [...] [place], [place] | | | | | [address] | | + + + + + | Ellie Vang | ECON | Unknown | | + + + + + Care Team Providers + +------+ + | Care Readers' Advisory Service Librarian Name | Role | Phone | + +------+ + | Jorje Hill MD | PCP | | + +------+ + Encounter Details +--------+ + + + + | Date | Type | Department | Care Team | Description | +--------+ + + + + | 03/01/ | Procedure | Diagnostic Imaging | | | | 2019 | Pass | Services at [facility] | | | | | | [address] | | | | | | [place] | | | | | | [address] | | | | | | [place], [place] | | | | | | [address] | | | | | | [phone] | | | +--------+ + + + [...] | | 2019 | cheduhipolito | | TICKET DISPATCHER [address] | | | | | | [facility] [place] | | | | | | [address] | | | | | | [phone] | | | | | | | | +--------+ + + + + documented as of this encounter Visit Diagnoses Not on filedocumented in this encounter"
--- OUTSIDE RECORDS SUMMARY | ~2020-03-23 | XMS | Encounter Summary ---
Demographics + + + | Address | [address] | | | [place] [address] | + + + | Home Phone [...] [place], [place] | | | | | [address] | | + + + + + | Ellie Vang | ECON | Unknown | | + + + + + Care Team Providers + +------+ + | Care Superintendent Drivers Name | Role | Phone | + +------+ + | Fadi Goodrich DO | PCP | | + +------+ + Encounter Details +--------+ + + + + | Date | Type | Department | Care Team | Description | +--------+ + + + + | 08/22/ | Abstract | Cardiology | Randell Franks, | | | 2013 | | Preventive at [facility] | MD [address] | | | | | [address] | [place], [place] | | | | | [facility] | [address] | | | | | and [place], | [phone] | | | | | [address] | | | | | | [facility] [place] | | | | | | [address] | | | | | | [phone] | | | +--------+ + + + [...] | | 2019 | sherrill | | BOBCAT DRIVER/LABOR [address] | | | | | | [place], [place] | | | | | | [address] | | | | | | [phone] | | | | | | | | +--------+ + + + + documented as of this encounter Visit Diagnoses Not on filedocumented in this encounter"
--- OUTSIDE RECORDS SUMMARY | ~2020-03-23 | XMS | Encounter Summary ---
Demographics + + + | Address | [address] | | | [place] [address] | + + + | Home Phone [...] [place], [place] | | | | | [address] | | + + + + + | Ellie Vang | ECON | Unknown | | + + + + + Care Team Providers + +------+ + | Care Barbering Instructor Name | Role | Phone | + +------+ + | Fadi Goodrich DO | PCP | | + +------+ + Encounter Details +--------+ + + + + | Date | Type | Department | Care Team | Description | +--------+ + + + + | 02/13/ | Telephone | Cardiology | Randell Franks, | | | 2016 | | Preventive at [facility] | MD [address] | | | | | [address] | [facility] [place] | | | | | [facility] | [address] | | | | | and [place], | [phone] | | | | | [address] | | | | | | [facility] [place] | | | | | | [address] | | | | | | [phone] | | | +--------+ + + + [...] Telephone Encounter - Corazon Alexis RN - 02/15/2016 3:16 PM Maribel Cooley NP calling from [facility] is at capacity with 10 people waiting to be admitted. Patient is being transferred to [facility] to get treatment. elephone Encounter - Corazon Alexis RN - 02/15/2016 2:0 7 PM DAVID spoke with the DECISION SCIENCE ANALYST at [facility] caring for Elzbieta. She reports patient was admitted there 01/10/16, 01/30/16, and 02/09/16. She encouraged me to get the records from those admissi ons. She said that they were waiting to get labs back on Elzbieta before deciding what the plan is. She reports that Elzbieta is currently requiring 2 L O2 via [place]. The DECISION SCIENCE ANALYST will call me back a nd provide an update once a plan evolves. -Will ask Keerthi to get records from recent admissions. elephone Encounter - Randell Franks MD - 2015 1:04 PM PDTI agree with plan per Nurse Reuben. Randell Franks MD elephone Encounter - Corazon Alexis RN - 02/15/2016 12:25 PM PDTJomadison (case manger)-We discussed the pl anRenee Teran had spoken to Elzbieta, and was aware that Elzbieta called ambulance. I told Parul t o call if she has further questions. Electronically signed by Corazon Alexsi RN at 02/14 12:28 PM PDTTelephone Encounter - Corazon Alexis RN - 02/15/2016 12:18 PM PDT11/05 admission note faxed to Sarah ERElectronically signed by Corazon Alexis RN at 12:18 PM PDTTelephone Encounter - Corazon Alexis RN - 02/15/2016 12:15 PM PDTI spoke with KELSIE Solano -advised that I will be faxing over the 11/06/15 admission notes from [facility]. . P DTTelephone Encounter - Corazon Alexis RN - 02/15/2016 12:09 PM PDTMisty calling back i n-Advised she can now call for the ambulance. Asked her to notify 911 that she currently rachid ghs 506 lbs, so they come with the correct equipment. Patient verbalizes understanding plan. Electronically signed by Corazon Alexis RN at 12:11 PM PDTTelephone Encounter - Corazon Alexis RN - 02/15/2016 12:06 PM PDTA ttempted to call Elzbieta-no answer and voice mail is not set up. Will call back in 5 minutes. elephone Encounter - Corazon Alexis RN - 02/15/2016 12:00 PM PDTI called [facility] in [place] and spok e with KELSIE Duggan. SBAR given to Olga Lidia- 506 lbs patient with 100 lbs weigh gain since October, c omplaining of YO, and CP with exertion, and decreased ability to perform ADL's. Advised that it sounds like patient needs to be admitted for IV diuresis and other work up/ tx prn. Advised if she needs to be admitted and they can't facilitate at [facility], they c an transfer to [facility] by calling [phone]. Olga Lidia appreciated call. Advised that I will ask patient to call the ambulance now. I provid ed Olga Lidia with my callback number. 16 12:07 PM PDTTelephone Encounter - Corazon Alexis RN - 02/15/2016 11:51 AM PDTMistirma wild alling in-she is calling to let me know she is getting ready to call the ambulance to go to [facility]. She reports no acute worsening of symptoms. Advised that I will call the ER at [facility] t o alert them patient will be coming in soon. Patient will wait to hear from me before calling the ambulance. elephone Encounte r - Corazon Alexis RN - 02/15/2016 9:05 AM PDTLVM for Parul to call me back pao crenshaw. elephone E ncounter - Corazon Alexis RN - 02/15/2016 9:03 AM PDTI have review my plan outlined in my 02/15/16 note at 8:[address] Franks. He is in agreement with plan. Electronically delfina d by Corazon Alexis RN at 02/15/2016 9:05 AM PDTTelephone Encounter - Corazon Alexis RN - 02/15/2016 8:26 AM PDTI spoke with Elzbieta-she reports she has gained about 100 lbs s adria October. She reports that she is "miserable" and "swollen". Reports bilateral leg and low er back pain from "carrying extra weight". States she if really weak.Endorses YO, breathing okay at rest, and states she has "a little bit of chest pain" when she ambulates. Denies ch est pain right now. I asked Elzbieta if she would go into the ER, and she told me "all they car e about is how low my potassium is". States the local ER treats her hypokalemia and then dis charges her. I ask Elzbieta if she would like to go to the ER today if I call them and relay my concerns th at she sounds like she may need IV diuresis. Elzbieta is agreeable, but would like to wait unti l her mom gets home around 11:00 today before going. She states it takes her 20 minutes to a mbulate to the car, so we decided that it would be best to call an ambulance when she is ra dy to go to the ER. -Patient will call me back around 11:00 today to arrange to go to her local ER elephone Encounte r - Corazon Alexis RN - 02/15/2016 8:15 AM DAVID spoke with Parul-She talked with Raquel capellan yesterday about going in to the hospital, but patient said she "didn't want to go in". I will call Elzbieta to see how she is doing. Electronically signed by KELSIE Casas 02/15/2016 9:05 AM PDTTelephone Encounter - Corazon Alexis RN - 02/14/2016 3:50 PM DAVID spoke with Parul-She states that none the local hospitals are able to admit Elzbieta dumont ause of her weight (they don't have the equipment to care for her). Patient was was at [facility] and treated for hypokalemia on 02/09/16, but did not diuresis her. Parul reports molly t patient is symptomatic- dyspneic and unable to get up from her chair without assistance (w as able to prior). I advised that since patient is symptomatic, she should be taken to the [facility] emergency room to be stabilized. If they can not diuresis Elzbieta she can be transferre d to a facility, such as [facility] where she can be treated. I provided Parul the phone number for the [facility] transfer center-[phone]. I encouraged her to talk with treating ER vivian jamil to relay concerns that she fells Elzbieta needs to be admitted for IV diuresis. elephone Encounte r - Corazon Alexis RN - 02/14/2016 3:35 PM PDTLVM for Parul Chan RN -Patient do es not need to come to [facility] for diuresis, unless they are not comfortable managing it in [facility]. We can help facilitate getting you information to get her admitted prn. I also wante d to check to see if you have been in contact with patients shipping receiving clerk regarding weight ga in. I requested a call back. 3 :37 PM PDTTelephone Encounter - Corazon Alexis RN - 02/14/2016 3:32 [address]TI spoke with Dr Franks-Patient does not need to come to [facility] for diuresis, however, if they do not feel comfortable managing her diuresis in [facility] the local shipping receiving clerk managing Elzbieta can ca ll [facility] admitting [phone] to facilitate admission to [facility]. elephone Encounter - Corazon Alexis RN - 0 02/14/2016 3:31 PM PDT documented in this encounter Plan of Treatment +--------+ + + + + | Date | Type | Specialty | Care Team | Description | +--------+ + + + + | 04/04/ | Telephone-S | Surgery | Orquidea Cristobal, | | | 2019 | sherrill | | INSURANCE CLAIM AUDITOR [address] | | | | | | [facility] [place] | | | | | | [address] | | | | | | [phone] | | | | | | | | +--------+ + + + + documented as of this encounter Visit Diagnoses Not on filedocumented in this encounter
--- OUTSIDE RECORDS SUMMARY | ~2020-03-23 | XMS | Encounter Summary ---
Demographics + + + | Address | [address] | | | [place] [address] | + + + | Home Phone [...] + | Katalina Padilla | ECON | [address] | | | | | [place], [place] | | | | | [address] | | + + + + + | Ellie Vang | ECON | Unknown | | + + + + + Care Team Providers + +------+ + | Care Concrete Sculptor Name | Role | Phone | + [...] | 2015 | Visit | Center at [facility] [address] | | (Primary Dx) | | | | [address] [facility] | | | | | | for Health and | | | | | | [facility], [address] | | | | | | [facility] [place] | | | | | | [address] | | | | | | [phone] | | | +--------+---------+ + + + [...] + documented in this encounter Progress Notes uYli Childs RD, [facility], [place] - 11/06/2014 9:00 AM PDTFormatting of this note might be diff erent from the original. Referring Provider: Fadi Goodrich DO [facility], Pre-Bariatric Surgery Class Pre-Surgery Class #1 prior to having Bariatric Surgery. Documented Time of Class: 2:00 until 3:00 (60 minutes unxl-cb-cant with patient) OBJECTIVE: Height: Ht Readings from [...] or sharing information. Yes Yuli Childs RD, [facility], LD Pager# [phone] documented in this encounter Plan of Treatment +--------+ + + + + | Date | Type | Specialty | Care Team | Description | +--------+ + + + + | 04/04/ | Telephone-S | Surgery | CristobalOrquidea, | | | 2019 | sherrill | | RUSSIAN LANGUAGE INSTRUCTOR [address] | | | | | | [place], [place] | | | | | | [address] | | | | | | [phone] | | | | | | | | +--------+ + + + + documented as of this encounter Visit Diagnoses + + | Diagnosis | + + | Morbid obesity (HCC) - Primary Morbid obesity | + + documented in this encounter
--- OUTSIDE RECORDS SUMMARY | ~2020-03-23 | XMS | Encounter Summary ---
Demographics + + + | Address | [address] | | | [place] [address] | + + + | Home Phone [...] [place], [place] | | | | | [address] | | + + + + + | Ellie Vang | ECON | Unknown | | + + + + + Care Team Providers + +------+ + | Care Fishing Manager Name | Role | Phone | [...] | | | | | | [place], [place] | | | | | | [address] | | | | | | [phone] | | | +--------+ + + + [...] | | 2019 | sherrill | | FOLLOW UP CLERK [address] | | | | | | [place], [place] | | | | | | [address] | | | | | | [phone] | | | | | | | | +--------+ + + + + documented as of this encounter Visit Diagnoses Not on filedocumented in this encounter"
--- OUTSIDE RECORDS SUMMARY | ~2020-03-23 | XMS | Encounter Summary ---
Demographics + + + | Address | [address] | | | [place] [address] | + + + | Home Phone [...] + | Author | [facility] | | | and Jeffana | + + + | Organization | [facility] | | | [...] Providers + +------+ + | Care Crane Man Name | Role | Phone | + +------+ + | Jorje Hill | PCP | | + +------+ + Encounter Details +--------+ + + + + | Date | Type | Department | Care Team | Description | +--------+ + + + + | 06/17/ | Telephone | [facility] | Christian Dawson, | | | 2018 | | CENTER CV INTRA OP | [address] | | | | | [address] | [place], | | | | | [place], [place] | [place] [address] | | | | | [address] | [phone] | | | | | [phone] | | | +--------+ + + + [...] | | | | | [place] [address] | | | | | | [phone] | | | | | | | | +--------+ + + + + | 04/18/ | Procedure | Neurology | Camille De La Paz, | | | 2019 | visit | | [address] | | | | | | [place] [address] | | | | | | [place] [address] | | | | | | [phone] | | | | | | | | +--------+ + + + + documented as of this encounter Visit Diagnoses Not on filedocumented in this encounter"
--- OUTSIDE RECORDS SUMMARY | ~2020-03-23 | XMS | Encounter Summary ---
Demographics + + + | Address | [address] | | | [place] [address] | + + + | Home Phone [...] + | Katalina Padilla | ECON | [address] | | | | | [place], [place] | | | | | [address] | | + + + + + | Ellie Vang | ECON | Unknown | | + + + + + Care Team Providers + +------+ + | Care Ornament Setter Name | Role | Phone | + +------+ + | Fadi Goodrich DO | PCP | | + +------+ + Encounter Details +--------+ + + + + | Date | Type | Department | Care Team | Description | +--------+ + + + + | 12/29/ | Abstract | Dig[facility]ive [facility] | Hernandez Brian, | | | 2012 | | [place] [address] [address] | [address] [facility] | | | | | [address] [facility] | [facility] | | | | | for [facility] and | [place], [place] | | | | | [facility] [address] | [address] | | | | | [place], [place] | [phone] | | | | | [address] | | | | | | [phone] | | | +--------+ + + + [...] | | 2019 | sherrill | | RURAL MAIL CONTRACTOR [address] | | | | | | [place], [place] | | | | | | [address] | | | | | | [phone] | | | | | | | | +--------+ + + + + documented as of this encounter Visit Diagnoses Not on filedocumented in this encounter"
--- OUTSIDE RECORDS SUMMARY | ~2020-03-23 | XMS | Encounter Summary ---
Demographics + + + | Address | [address] | | | [place] [address] | + + + | Home Phone [...] + | Katalina Padilla | ECON | [address] | | | | | [place], [place] | | | | | [address] | | + + + + + | Ellei Vang | ECON | Unknown | | + + + + + Care Team Providers + +------+ + | Care Inspector Assemblies And Installations Name | Role | Phone | + [...] [address] | | | | Order | [address] [place], [place] | | | | | [address] | [address] | | | | | Francesco Larisa, | [phone] | | | | | 4th floor [place], | | | | | | [place] [address] | | | | | | [phone] | | | +--------+ + + + [...] | | 2019 | sherrill | | CERTIFIED MASTER LOCKSMITH [address] | | | | | | [place], [place] | | | | | | [address] | | | | | | [phone] | | | | | | | | +--------+ + + + + documented as of this encounter Results EGD (06/23/2018 3:58 PM PST) + + | Specimen | + + | | + + + +--------- -----+ | Narrative | Roseanna d At | + +--------- -----+ | MRN: | NKECHI | | [id number] Date: 06/23/2018Patient Name: Elzbieta Curtis #: | ENDOSCOP Y | | [id number] of : [id number]: [id number] Type: | | | AmbulatoryRoom: SORProcedure: Upper GI | | | endoscopyIndications: Nausea with vomiting, Status post | | | Shws-im-BWovugunsi: KALEB MILES MD (Doctor)JOSE | | | NASIMA, Manager Of Purchasing | | | (Manager Of Purchasing)Referring MD: DANIELLE GARCÍAPRemateusz | | | Provider: [...] | | | The Olympus [id number]-[id number] Gastroscope #[id number] was | | | introduced through the [...] endoscope without resistance. The | | | jxang-ro-ersaedo limb was characterized by healthy appearing | [...] | | | 06/23/2018 3:58 [facility] Letter to: RADHA MICHAEL DO | | [...]
--- OUTSIDE RECORDS SUMMARY | ~2020-03-23 | XMS | Encounter Summary ---
Demographics + + + | Address | [address] | | | [place] [address] | + + + | Home Phone [...] + | Katalina Padilla | ECON | [address] | | | | | [place], [place] | | | | | [address] | | + + + + + | Ellie Vang | ECON | Unknown | | + + + + + Care Team Providers + +------+ + | Care Directory Operator Name | Role | Phone | + +------+ + | Fadi Goodrich DO | PCP | | + +------+ + Encounter Details +--------+------+ + + + | Date | Type | Department | Care Team | Description | +--------+------+ + + + | 10/12/ | Lab | Laboratory at [facility] | | | | 2019 | | [address] | | | | | | [place] [facility] | | | | | | and Healing, | | | | | | [address] | | | | | | [place], [place] | | | | | | [address] | | | | | | [phone] | | | +--------+------+ + + + [...] | | 2019 | sherrill | | MAIL PROCESSING ASSOCIATE [address] | | | | | | [place], [place] | | | | | | [address] | | | | | | [phone] | | | | | | | [...] + + + + + | [facility] | [address] | [place] [address] | | | LYDIA RANGEL | CLARENCE [...] INTFC | | | | determined by [employer] | | | | | | Laboratories. See | | | | | | Compliance Statement B: | | | | | | ParLevel Systems/CSPerformed | | | | | | by [employer],[address] | | | | | | Liliana Martinez, [facility],[place] | | | | | | [address] | | | | | | [phone]. | | | | | | Ismael [...] [facility] | [address] | [place], [place] | | | UNIV PTH - INTFC | | [address] | | + + + + + [...] | | | | | determined by [employer] | | | | | | Laboratories. See | | | | | | Compliance Statement B: | | | | | | griddig.[employer]/CSPerformed | | | | | | by [employer],[address] | | | | | | [facility] | | | | | | [address] | | | | | | [phone]. | | | | | | com, [...] + + | [facility] | [address] [facility] | [place], [place] | | | UNIV PTH - INTFC | | [address] | | + + + + + [...] [facility] | | | (YEN NOAH) | ARBlast [employer]amp [facility],[address] | | REG UNIV | | | SERUM | [place], [place] | | PTH - INTFC | | | | [address] | | | | | | [phone]. | | | | | | com, [...] B: | | | | | | griddig.[employer]/CS | | | | + + + + + + + + | Specimen | + + | Blood - Blood | | (substance) | + + + + + + + | Performing | Address | City/State/Zipcode | Phone Number | | Organization | | | | + + + + + | [facility] | [address] | [place], [place] | | | UNIV PTH - INTFC | | [address] | | + + + + + [...] [facility] | [address] | [place] [address] | | | SERVICES, CORE | PARK [...] + + + + + | [facility] | [address] | [place] [address] | | | SERVICES, CORE | CLARENCE [...] B: | | | | | | griddig.[employer]/CSPerformed | | | | | | by [employer],[address] | | | | | | Liliana Martinez [place], [place] | | | | | | [address] | | | | | | [phone]. | | | | | | comIsmael [...] [facility] | [address] | [place], [place] | | | UNIV PTH - INTFC | | [address] | | + + + + + [...] [facility] | [address] | [place] [address] | | | SERVICES, CORE | CLARENCE [...] | | | | | determined by [employer] | | | | | | Laboratories. See | | | | | | Compliance Statement B: | | | | | | griddig.[employer]/CSPerformed | | | | | | by [employer],[address] | | | | | | Liliana Martinez, [facility],[place] | | | | | | [address] | | | | | | [phone]. | | | | | | comIsmael [...] [facility] | [address] | [place], [place] | | | UNIV PTH - INTFC | | [address] | | + + + + + [...] [facility] | [address] | [place] [address] | | | SERVICES, CORE | CLARENCE [...] + + + + + | [facility] | [address] | [place] [address] | | | SERVICES, SPECIAL | PARK [...] + + + + + | [facility] | [address] | [place] [address] | | | SERVICES, CORE | CLARENCE [...] at | | | | | | [email or web address] | | | | | | med by [facility] | | | | | | [facility],[address] [place] [address] | | | | | | [place] [address] | | | | | | [phone]. | | | | | | [facility] centerIsmael MD, | | | | [...] [facility] | [address] | [place], [place] | | | UNIV PTH - INTFC | | [address] | | + + + + + [...] | | | LABORATORY | | | ITALIAN | | | SERVICES, | | | [...] the MDRD equation recommended by the | CASU | | National Kidney Disease Education Program. [...] + + + | [facility] | [address] | [place] [address] | | | SERVICES, CORE | [address] | | | + + + + + documented in this encounter Visit Diagnoses Not on filedocumented in this encounter"
--- OUTSIDE RECORDS SUMMARY | ~2020-03-23 | XMS | Encounter Summary ---
Demographics + + + | Address | [address] | | | [place] [address] | + + + | Home Phone [...] | + + + + + | Kenny Padilla | ECON | [address] | | | | | [place], [place] | | | | | [address] | | + + + + + | Ellie Vang | ECON | Unknown | | + + + + + Care Team Providers + +------+ + | Care Numerical Control Tool Programmer Name | Role | Phone | + [...] + + | 11/05/ | Hospital | [facility] [address] | Joseph Cox | | | 2016 - | Encounter | [address] | MD Birgit [address] [facility] | | | | | [facility] | [address] | | | 11/20/ | | [place], [place] | [place], [place] | | | 2016 | | [address] | [address] | | | | | [phone] | [phone] | | | | | | | | | | | | Ana, | | | | | | MD Briana [address] | | | | | | [address] | | | | | | Rd [place], [place] | | | | | | [address] | | | | | | [phone] | | | | | | | | | | | | Carmelina Tucker, | | | | | | JEFFREY-Aimee [address] | | | | | | [address] | | | | | | [place], [place] | | | | | | [address] | | | | | | [phone] | | | | | | | | | | | | Charley Lacey MD | | | | | | Jose Scott MD | | | | | | [address] | | | | | | [address] | | | | | | [place], [place] | | | | | | [address] | | | | | | [phone] | | | | | | | | | | | | Mannie Larkin MD | | | | | | [address] | | | | | | [address] [place], | | | | | | [place] [address] | | | | | | [phone] | | | | | | | | | | | | Tyrone Adrian MD | | | | | | [address] | | | | | | [address] [place], | | | | | | [place] [address] | | | | | | [phone] | | | | | | | [...] in this encounter Discharge Summaries Yosef Segovia - 11/21/2015 3:29 PM PDTFormatting of this note might be different from t amaury original. INPATIENT PHYSICIAN DISCHARGE SUMMARY Discharging Provider: [...] did want her to follow up with dado operator in [place]. She should continue working towards bariatric surgery wh ich will ultimately put less stress on her heart. -Continue torsemide 80mg BID -Increase potassium supplementation to KCl 40mg BID -Daily weights and strict 2g Na 2L fluid restricted diet -Close followup with Dr. Goodrich (appt on 11/25 at 11AM) -Needs followup with cardiology in [place] #Left lower extremity DVT #Presumed PE Asymmetric left lower extremity pain and swelling was suspicious for DVT and confirmed with duplex ultrasound. Did not pursue CTA as it was decided that it would not spinning frame changer . Started anticoagulation bridge with heparin [...] mouth once daily. , Historical Med CALCIUM [id number] ORAL Take 2 tablets by mouth two [...] Cyndi Meier Cardiology Cong[facility] Failure at [facility] [phone] Cardiology Additional Instructions/Orders: Diet Diabetic (Consistent [...] Good Yosef Segovia MD PGY-1 Internal Medicine [id number] INPATIENT FACULTY PROGRESS NOTE - GM 1 [...] (HCC) 15) Candidal intertrigo Tyrone Adrian MD [facility] 14C paper bag press operator Division of Hospital Medicine Department of Medicine [facility] [address] [place] [address] [facility] DEPARTMENT: Hosp- [id number] Place of Service: Date of Service: 11/21/2015 CSN: [id number] Modifiers:GC Resident Involved: Yes Suggested CPT: 50947 Discharge Management < 30 minute documented in this encou nter Medications at Time of Discharge + + + +---------+--------+ + | Medication | Sig | Dispensed | Refills | Start | End Date | | | | | | Date | | + + + +---------+--------+ + | CALCIUM | Take 2 tablets by | | 0 | | | | [id number] | mouth two times | | | [...] (HCC) 15) Candidal intertrigo Tyrone Adrian MD [facility] 14C paper bag press operator Division of Hospital Medicine Department of Medicine [facility] & [address] [place] [address] [facility] DEPARTMENT: [facility]- [id number] Place of Service: Date of Service: 11/20/2015 CSN: [id number] Modifiers:GC Resident Involved: Yes Suggested CPT: 20002 Subsequent Visit Exp Prob Foc/Mod Complexity 25 min olleen Diamond - 016 6:49 AM PDT PHYSICIAN SHEEP AND WHEAT FARMER STUDENT PROGRESS NOTE FOR EDUCATIONAL PURPOSES ONLY INPATIENT PROGRESS NOTE PATIENT INFORMATION Patient Name: Elzbieta Cristina Date of : 1975 Date of Admission: 11/06/2015 PCP: Fadi Goodrich DO Room/Bed: 14/08/08 Attending Provider: Tyrone Adrian MD Encounter Information [...] of ovarian cysts or menses related. Contact ACCOUNT DEVELOPMENT MANAGER if TV-US i s ordered. - [...] - topiramate 200mg po bid JEFFREY Gee-S2 [facility] PA Student Feeding: <2L fluid, Diabetic diet, >2g na Analgesia: APAP, gabapentin, hydrocodone Thromboembolic prophylaxis: Heparin/warfarin Glycemic control: moderate ISS Mobility: Encourage walking and movement Discharge: Expect hospital stay another 2-3 days with PCP FU (Dr. Goodrich) on Saturday 11/25 @ 1 1 am. - Referral to Manufacturing Plant Manager Code status: FULL Associated attestation - Yosef Segovia - 11/20/2015 7:50 PM PDTI have read the [facility] t note by JEFFREY Diamond and agree [...] PCP Yosef Segovia MD PGY-1 Internal Medicine [id number] Tyrone Adrian MD - 11/19/2015 11:51 AM [...] if the PO works) Tyrone Adrian MD [facility] 14C paper bag press operator Division of Hospital Medicine Department of Medicine [facility] & [address] [place] [address] [facility] DEPARTMENT: Hosp- [id number] Place of Service: - Date of Service: 11/19/2015 CSN: [id number] Modifiers:GC Resident Involved: Yes Suggested CPT: 22470 Subsequent Visit Exp Prob Foc/Mod Complexity 25 min lColleen goff - 016 6:24 AM PDT PHYSICIAN SHEEP AND WHEAT FARMER STUDENT PROGRESS NOTE FOR EDUCATIONAL PURPOSES ONLY [...] Intake/Output Summary (Last 24 hours) at 11/19/15 0751 Last data filed at 11/19/15 0655 Gross [...] of ovarian cysts or menses related. Contact ACCOUNT DEVELOPMENT MANAGER if TV-US i s ordered. - [...] - topiramate 200mg po bid JEFFREY Gee-S2 [facility] PA Student Feeding: <2L fluid, Diabetic diet, >2g na Analgesia: APAP, gabapentin, hydrocodone Thromboembolic prophylaxis: Heparin/warfarin Glycemic control: moderate ISS Mobility: Encourage walking and movement Discharge: Expect hospital stay another 3-5 days with diuresis until more euvolemic and R h eart cath can be completed. Code status: FULL Associated attestation - Adena, Yosef Mart - 11/19/2015 7:38 PM PDTI have read [...] can. Yosef Segovia MD PGY-1 Internal Medicine [id number] Tyrone Adrian MD - 11/18/2015 2:01 PM [...] (HCC) 15) Candidal intertrigo Tyrone Adrian MD [facility] 14C paper bag press operator Division of Hospital Medicine Department of Medicine [facility] [address] [place] [address] [facility] DEPARTMENT: Hosp- [id number] Place of Service: [facility] Date of Service: 11/18/2015 CSN: [id number] Modifiers:GC Resident Involved: Yes Suggested CPT: 70530 Subsequent Visit Exp Prob Foc/Mod Complexity 25 min Yosef Fang - 11/17 6:42 AM PDT General Internal [...] plan. Yosef Segovia MD PGY-1 Internal Medicine [id number] signed by Yosef Segovia at 11/18/2015 11:52 [...] (HCC) 15) Candidal intertrigo Tyrone Adrian MD [facility] 14C paper bag press operator Division of Hospital Medicine Department of Medicine [facility] [address] [place] [address] [facility] DEPARTMENT: Hosp- [id number] Place of Service: [facility] Date of Service: 11/17/2015 CSN: [id number] Modifiers:GC Resident Involved: Yes Suggested CPT: 50914 Subsequent Visit Exp Prob Foc/Mod Complexity 25 min olleen Diamond - 016 6:40 AM PDT PHYSICIAN SHEEP AND WHEAT FARMER STUDENT PROGRESS NOTE FOR EDUCATIONAL PURPOSES ONLY INPATIENT PROGRESS NOTE PATIENT INFORMATION Patient Name: Elzbieta Cristina Date of : 1975 Date of Admission: 11/06/2015 PCP: Fadi Goodrich DO Room/Bed: [facility]/08/08 Attending Provider: Tyrone Adrian MD Encounter [...] 0.53 Mag 2.3 K 3.6 ASSESSMENT/PLAN Elzbieta Shereen Bonnie, a 40 year old morbidly obese woman [...] - topiramate 200mg po bid JEFFREY Gee-S2 [facility] PA Student Feeding: <2L fluid, [...] can Yosef Segovia MD PGY-1 Internal Medicine [id number] Tyrone Adrian MD - 11/16/2015 4:59 PM [...] the Dr Renee Hair (almost complete) and pradeep Diamond' documentation, except as noted or expanded up [...] (HCC) 15) Candidal intertrigo Tyrone Adrian MD [facility] 14C paper bag press operator Division of Hospital Medicine Department of Medicine [facility] & [address] [place] [address] [facility] DEPARTMENT: Hosp- [id number] Place of Service: Date of Service: 11/16/2015 CSN: [id number] Modifiers:GC Resident Involved: Yes Suggested CPT: 54571 Subsequent Visit Exp Prob Foc/Mod Complexity 25 min lColleen goff - 016 6:43 AM PDT PHYSICIAN SHEEP AND WHEAT FARMER STUDENT PROGRESS NOTE FOR EDUCATIONAL PURPOSES ONLY [...] [employer] PA Student Feeding: <2L fluid, Diabetic diet, [...] the not e by PA student Colleen Diamnod and my additions or clarifications are included below. Our plan today in brief for Ms Cristina: -- coordinate cardiac care follow up with the assistance of Grisel Pearl. Patient lives i [place] which is quite a distance to travel to and from [place]. We would ideally arran ge cardiac follow [...] (HCC) 15) Candidal intertrigo Tyrone Adrian MD [facility] 14C paper bag press operator Division of Hospital Medicine Department of Medicine [facility] [address] [place] [address] [facility] DEPARTMENT: Hosp- [id number] Place of Service: - Date of Service: 11/15/2015 CSN: [id number] Modifiers:GC Resident Involved: Yes Suggested CPT: 60902 Subsequent Visit Detailed/High complexity 35 min lColleen goff - 016 6:33 AM PDT PHYSICIAN SHEEP AND WHEAT FARMER STUDENT PROGRESS NOTE FOR EDUCATIONAL PURPOSES ONLY [...] last 8 days Intake 9571.5 ml Output 66868 ml Net since Admission -21173.5 ml -25.938 L = 57.0636 lbs Constitutional: [...] - topiramate 200mg po bid JEFFREY Gee-S2 [facility] PA Student Feeding: <2L fluid, [...] can Yosef Segovia MD PGY-1 Internal Medicine [id number] Tyrone Adrian MD - 11/14/2015 4:16 PM [...] (HCC) 15) Candidal intertrigo Tyrone Adrian MD [facility] 14C paper bag press operator Division of Hospital Medicine Department of Medicine [facility] [address] [place] [address] [facility] DEPARTMENT: Hosp- [id number] Place of Service: Date of Service: 11/14/2015 CSN: [id number] Modifiers:GC Resident Involved: Yes Suggested CPT: 87109 Subsequent Visit Exp Prob Foc/Mod Complexity 25 min lColleen goff - 016 6:42 AM PDT PHYSICIAN SHEEP AND WHEAT FARMER STUDENT PROGRESS NOTE FOR EDUCATIONAL PURPOSES ONLY [...] - topiramate 200mg po bid JEFFREY Gee-S2 [facility] PA Student Feeding: <2L fluid, Diabetic diet, >2g na Analgesia: APAP, gabapentin, hydrocodone Thromboembolic prophylaxis: Heparin/warfarin Glycemic control: moderate ISS Mobility: Encourage walking and movement Discharge: Expect hospital stay another 3-5 days with diuresis until more euvolemic and R h eart cath can be completed. Code status: FULL Associated attestation - Yosef Segovia - 11/14/2015 5:02 PM PDTI have read the excellen t note by JEFFREY Diamond and agree [...] to continue her diuresis inpatient or outpatient oYsef Segovia MD PGY-1 Internal Medicine [id number] Tyrone Adrian MD - 11/13/2015 4:06 PM [...] (HCC) 15) Candidal intertrigo Tyrone Adrian MD [facility] 14C paper bag press operator Division of [facility] Medicine Department of Medicine [facility] [address] [place] [address] [facility] DEPARTMENT: Hosp- [id number] Place of Service: [facility] [id number] Date of Service: 11/13/2015 CSN: [id number] Modifiers:GC Resident Involved: Yes Suggested CPT: 44231 Subsequent Visit Detailed/High complexity 35 min olleen Diamond - 016 6:36 AM PDT PHYSICIAN SHEEP AND WHEAT FARMER STUDENT PROGRESS NOTE FOR EDUCATIONAL PURPOSES ONLY [...] - topiramate 200mg po bid JEFFREY Gee-S2 [facility] PA Student Feeding: <2L fluid, Diabetic diet, >2g na Analgesia: APAP, gabapentin, hydrocodone Thromboembolic prophylaxis: Heparin/warfarin Glycemic control: moderate ISS Mobility: Encourage walking and movement Discharge: Expect hospital stay another 5-7 days with diuresis until more euvolemic and R h eart cath can be completed. Code status: FULL Associated attestation - Yosef Segovia - 11/13/2015 3:14 PM PDTI have read the excellen t [...] VTE. Yosef Segovia MD PGY-1 Internal Medicine [id number] Tyrone Adrian MD - 11/12/2015 1:59 PM [...] 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, J GENERAL REPAIRER, at this point not definitive Plan: continue [...] ongoing 12) Candidal intertrigo Tyrone Adrian MD [facility] 14C paper bag press operator Division of Hospital Medicine Department of Medicine [facility] [address] [place] [address] [facility] DEPARTMENT: Hosp- [id number] Place of Service: - Date of Service: 11/12/2015 CSN: [id number] Modifiers:GC Resident Involved: Yes Suggested CPT: 04332 Subsequent Visit Detailed/High complexity 35 min lshellColleen - 016 6:31 AM PDT PHYSICIAN SHEEP AND WHEAT FARMER STUDENT PROGRESS NOTE FOR EDUCATIONAL PURPOSES ONLY [...] - topiramate 200mg po bid JEFFREY Gee-S2 [facility] PA Student Feeding: <2L fluid, Diabetic diet, >2g na Analgesia: APAP, gabapentin, hydrocodone Thromboembolic prophylaxis: Heparin/warfarin Glycemic control: moderate ISS Mobility: Encourage walking and movement Discharge: Expect hospital stay another 5-7 days with diuresis until more euvolemic and R h eart cath can be completed. Code status: FULL Associated attestation - Yosef Segovia - 11/12/2015 4:40 PM PDTI have read the licha t [...] disease. Yosef Segovia MD PGY-1 Internal Medicine [id number] Mannie Larkin MD - 11/11/2015 9:19 PM [...] diuresis then RHC Mannie Larkin MD Clinical Political Aide, Internal Medicine Pager [phone] ristalColleen martines - 10/25 6:40 AM PDT PHYSICIAN SHEEP AND WHEAT FARMER STUDENT PROGRESS NOTE FOR EDUCATIONAL PURPOSES ONLY [...] [employer] PA Student Feeding: <2L fluid, Diabetic diet, >2g na Analgesia: APAP, gabapentin, hydrocodone Thromboembolic prophylaxis: Heparin/warfarin Glycemic control: moderate ISS Mobility: Encourage walking and movement Discharge: Expect hospital stay another 5-7 days with diuresis until more euvolemic and R h eart cath can be completed. Code status: FULL Associated attestation - Juliette Yosef Mart - 11/11/2015 3:31 PM PDThave read the [...] pain Yosef Segovia MD PGY-1 Internal Medicine [id number] Maria Eugenia Leiva RCP - 11/11/2015 6:39 [...] getting ON sleep study by RT- s poke about RHC when euvolemic. Assessment and Plan: [...] another 5-7 days Mannie Larkin MD Clinical Political Aide, Internal Medicine Pager [phone] Yosef Fang - 7:24 AM PDT General [...] plan. Yosef Segovia MD PGY-1 Internal Medicine [id number] signed by Yosef Segovia at 11/10/2015 2:50 PM Lawrence Vines MD - 11/09/2015 2:10 PM PDTGENERAL MEDICINE ATTENDING PROGRESS NOTE ADMIT DATE: 11/06/2015 6:40 PM TODAY'S DATE: 11/09/2015 (HOSPITAL DAY 3) I personally interviewed the patient, performed the de la cruz elements of the physical examinatio n, have developed an updated assessment and plan together with the resident, Dr. Segovia/P A student Dara. I agree with the plans [...] R heart cath onc e a bit dietary worker. In terms of AMARA - does not tolerate CPAP historically. Likely CPAP will be ve ry important for her going forward. Will try overnight oximetry here to assess severity. Discharge planning:Anticipate several days in house. I spent >35 min of which >50% was spent in counseling and coordination of care. Briana Perez MD [facility] Division of Hospital Medicine Grisel [...] Surrogate Decision Maker Primary Surrogate Decision Maker Kenny kim [phone] Advanced Directives Existence of Advanced Directive Reviewed: No- Has Interest (11/09/15 1022) Advanced Directives Reviewed Comments: I gave a copy of advance directives (11/09/15 1022) KRISHNA Huertas NP [facility] [address] [place] [address] lfelixs Colleen - 6:41 AM PDT PHYSICIAN SHEEP AND WHEAT FARMER STUDENT PROGRESS NOTE FOR EDUCATIONAL PURPOSES ONLY INPATIENT PROGRESS NOTE PATIENT INFORMATION Patient Name: Elzbieta Cristina Date of : 1975 Date of Admission: 11/06/2015 PCP: Fadi Goodrich DO Room/Bed: [facility]/08/08 Attending Provider: Briana Perze MD Encounter Information Date of Service: 11/08/2015 [...] of acute blood loss and anemia of chromosomal disorders counselor ela dz and thalassemia is less likely. [...] - topiramate 200mg po bid JEFFREY Gee-S2 [facility] PA Student Feeding: <2L fluid, Diabetic diet Analgesia: APAP, gabapentin Thromboembolic prophylaxis: Heparin/warfarin Glycemic control: moderate ISS Mobility: Encourage walking and movement Discharge: Expect hospital stay ~1 week with goal of diuresing to patient's dry weight Code status: FULL Associated attestation - Yosef Segovia - 11/09/2015 6:37 PM PDTI have read the [facility] t note written by PA student Colleen [...] AM Yosef Segovia MD PGY-1 Internal Medicine [id number] Briana Perez MD - 11/08/2015 2:01 PM PDTGENERAL MEDICINE ATTENDING PROGRESS NOTE ADMIT DATE: 11/06/2015 6:40 PM -late entry for 11/07 TODAY'S DATE: 11/08/2015 (HOSPITAL DAY 2) I personally interviewed the patient, performed the de la cruz elements of the physical examinatio n, have developed an updated assessment and plan together with the resident, Dr. Hair/MS Amadeo Diamond. I agree [...] and coordination of care. Briana Perez MD [facility] Division of Hospital Medicine Colleen Tello - 11/08/2015 6:26 AM PDT PHYSICIAN SHEEP AND WHEAT FARMER STUDENT PROGRESS NOTE FOR EDUCATIONAL PURPOSES ONLY [...] po bid (topamax, nerve pain) JEFFREY Gee-S2 [facility] PA Student Feeding: <2L fluid, [...] Hair Md, MSc Internal Medicine PGY2 Pager [phone] Kwadwo Freire - 11/07/2015 2:05 PM PDTTransthoracic [...] plan. Yosef Segovia MD PGY-1 Internal Medicine [id number] lColleen goff - 016 8:43 AM PDT PHYSICIAN SHEEP AND WHEAT FARMER STUDENT PROGRESS NOTE FOR EDUCATIONAL PURPOSES ONLY [...] perfusion. - consider US to evaluate liver ([id number]-[id number]-uzcweswcg fatty liver dz) and look for ascites. [...] Code status: documented in this encou nter H&P Notes Tyrone Adrian MD - 11/21/2015 1:02 PM PDTFormatting of this note might be different from t amaury original. INPATIENT PHYSICIAN DISCHARGE SUMMARY Discharging Provider: Yosef Segovia MD Discharging Attending Physician: Tyrone Adrian MD Hospital Stay: 15 day(s) PCP: Fadi Goodrich DO Admission Date: 11/06/2015 Discharge Date: 11/21/2015 Principal Final Diagnosis: #Edema and weight gain Additional Diagnoses: #Dyspnea on exertion #Left lower extremity DVT #Heart failure with preserved ejection fraction #Right heart failure #Severe Morbid obesity #Likely [...] #Weight gain and edema #Dyspnea on exertion #Heart failure with preserved ejection fraction #Right heart failure Patient described subacute progressive [...] did want her to follow up with dado operator in [place]. She should continue working towards bariatric surgery wh ich will ultimately put less stress on her heart. -Continue torsemide 80mg BID -Increase potassium supplementation to KCl 40mg BID -Daily weights and strict 2g Na 2L fluid restricted diet -Close followup with Dr. Goodrich (appt on 11/25 at 11AM) -Needs followup with cardiology in [place] #Left lower extremity DVT Asymmetric left lower extremity pain and swelling was suspicious for DVT and confirmed with duplex ultrasound. Did not pursue CTA as it was decided that it would not spinning frame changer . Started anticoagulation bridge with heparin [...] mouth once daily. , Historical Med CALCIUM [id number] ORAL Take 2 tablets by mouth two [...] Status: Full POLST completed: no Follow-up App[facility]ments: [facility] Future Appointments Provider Department Dept Phone Center 11/27/2015 9:00 AM Cyndi Meier Cardiology Cong[facility]ive Heart Failure at [facility] Cardiology Additional Instructions/Orders: Diet Diabetic (Consistent [...] Good Yosef Segovia MD PGY-1 Internal Medicine [id number] KaleeClay M D - 11/06/2015 8:59 PM PDTInternal Medicine Resident Admission Note Pt is a 40 yo female w/ a pmh of morbid obesity, T2 DM, HTN, OHS, hypothyroidism; presented to endocrine clinic today where there was concern for celllulitis and weight gain thought t o be 2/2 decompensated heart failure and was referred to the ED. Pt describes increased weight since february, particularly over the past month. Also with inc reased dyspnea and chest pain with exertion. Increased RAJESH pain, redness, swelling and fever s. Treated for cellulitis X4 - doxy, clinda, cephalexin, septra without improvement. Exam - tachycardia, morbid obese female NAD. RRR no m/g/r. JVP not elevated. Lungs clear an teriorly. Bilateral LE with what seems like mixed/pitting/non pitting edema. Both LE below t he knees exquisitely tender to palpation with light touch, warm and erythematous to ~ 10 cm distal to the knee. On torsemide at home and states she is no longer responsive to this. Labs - no leukocytosis, BNP/Trop/EKG wnl, bicarb 20 in patient with chronic retention, AG n ml, lactate normal. CXR clear. Started on IV vancomycin in the ED and admitted for concern for cellulitis. Assessment: Pt with morbid obesity, DM, OHS presenting with RAJESH erythema, tenderness and tachycardia in the setting of 1 month of multiple PO ABX without improvement. DDX inlcuding cellulitis vs DVT vs leg pain/erythema 2/2 edema. Cellulitis I feel is not definitive, however she has a l eukocytosis and several factors that would set her up for outpatient failure. History of dyspnea and weight gain with exertional chest pain. No absolute evidence of acut e decompensated heart failure. Clear history of lack of responsiveness to her diuretic whic h she may be developing tolerance to - resulting in increased edema. BNP/NT-proBNP can be fa lsely low in pts with obesity and should be taken into consideration. Certainly at risk for PHTN. ddx - in appropriate diuretic dose, PHTN, HF, nephrotic syndrome (although nothing els e to suggest this), progressive non pathologic weight gain, lymphedema. Plan: - Continue vancomycin for now - US LE doppler - check UA to eval for protein - Echocardiogram - Consider escalating diuretic dose depending on concern for infection/SIRS - Advanced Care planning documentation when on the floor - Kenny lemus - For a complete HP please see the dental intern note. Clay Villalta MD Internal Medicine [id number] obbs, Will Colvin MD - 11/06/2015 8:53 PM PDT Internal Medicine History and Physical Attending Physician: Ana Chief Complaint: LLE pain, weight gain, sob ID: [id number] F with morbid obesity, DMII, hypothyroidism, lower ext edema, PCOS presents from e ndocrine clinic with sob, rapid weight gain, lower ext edema, pain, erythema and referred to ED for concerns of decompensated heart failure and LE cellulitis HPI: Per patient, over the last month has noted subacute progressive shortness of breath and dys pnea on exertion over the last 1-2 months. Takes torsemide 40mg po bid for lower ext edema (stable dose for "years") with decreased urine output x1 month as well. Compliant with meds. Previously able to "walk around [employer]" without issues, now unable to walk more than 10ft. Mentions intermittent chest pain with exertion, improved with rest, not worse with inspira tion. No hx of heart disease. Reports having a sleep study last year that revealed mild sle ep apnea fixed with positioning; now sleeps sitting upright. Mentions stable low-carb diet is unchanged and cannot possibly contribute to her weight gain. Has been on Zyprexa 30mg for years. Non-smoker. Of note she is being prepared for bariatric surgery. A month ago she developed bilateral lower ext swelling, pain and erythema L>R. No inciting trauma. For suspected cellulitis She reports she has undergone three rounds of PO antibioti cs for cellulitis by PCP including doxy, cipro, cefelexin. She is now currently on DS TMP/SM X. Intermittent fevers/chills (no temp readings). Swelling, pain and erythema has roughly stayed the same without progression up her legs. Hx of "brain clot not stroke" when pregnan t as a teenager, no hx of DVT or personal autoimmune disease. Sister with lupus. Hx left ank le fracture with 2 screws remaining. She was seen in endocrine clinic on 11/05. Thought to have partially treated cellulitis of b/l lower ext, currently on PO DS TMP/SMX. Also noted to have gained 100lb in last 6m. For concerns of decompensated heart failure she was sent to the ED for workup of decompensated HF and cellulitis. ED course - AF HR115 SBP 130s - WBC 14k - Vancomycin for presumed cellulitis - 1L NS, HR 115->100 Past Medical History: I have updated the Problem List with the patient's relevant diagnoses. Morbid obesity Ventral hernia DMII AMARA Edema GERD PCOS Anxiety/depression Review of Systems: 12pt ros asked, pertinent mentioned in HPI. Home Medications: I have obtained and documented the prior to admission medication list and it is accurate. Prior to Admission Medications Prescriptions ALPRAZolam 1 mg oral tablet Sig: Take 1 mg by mouth three times daily as needed for anxiety. CALCIUM CRB&SLF-S4-MII40-GENIS ORAL Sig: Take 2 tablets by mouth two times daily. FLUoxetine 40 mg Oral capsule Sig: Take 60 mg by mouth once daily. HUM INSULIN NPH/REG INSULIN HM (HUMULIN 70/30 SUBQ) Sig: Inject 100 Units under the skin (SUBC) once daily at bedtime. HYDROcodone-acetaminophen 10-325 mg oral tablet Sig: Take 1 tablet by mouth every six hours as needed. OLANZAPINE (ZYPREXA ORAL) Sig: Take 30 mg by mouth once daily at bedtime. SULFAMETHOXAZOLE/TRIMETHOPRIM (BACTRIM ORAL) Sig: Take by mouth two times daily. TORSEMIDE ORAL Sig: Take 40 mg by mouth two times daily. ascorbic acid (VITAMIN C) 500 mg [...] times daily. phentermine 37.5 mg oral tablet Sig: Take 1 tablet by mouth once daily in the morning. Administer before breakfast. Patient taking differently: Take 37.5 mg by mouth before breakfast. Administer before break fast. piroxicam 20 mg Oral capsule Sig: Take 20 mg by mouth once daily at bedtime. potassium chloride SR 10 mEq oral tablet,ER particles/crystals Sig: Take 10 mEq by mouth once daily. pseudoephedrine 60 mg oral tablet Sig: Take 120 mg by mouth once daily as needed. ranitidine 300 mg Oral tablet Sig: Take 300 mg by mouth once daily at bedtime as needed. thyroid (ARMOUR THYROID) 30 mg oral tablet tab Sig: Take 30 mg by mouth once daily. topiramate (TOPAMAX) 100 mg oral tablet Sig: Take 1 tablet by mouth two times daily. Patient taking differently: Take 200 mg by mouth two times daily. traZODone 150 mg Oral tablet Sig: Take 150 mg by mouth once daily at bedtime. Facility-Administered Medications: None Allergies I have reviewed and updated the allergy list. Allergies Allergen Reactions Amoxicillin Benadrilina [Diphenhydramine Hcl] Hives Parlodel [Bromocriptine] Unknown Blood clots Social History I have updated the Social Hx as appropriate. History Substance Use Topics Smoking status: Former Smoker Smokeless tobacco: Never Used Alcohol Use: No Social History Narrative She, her daughter, and grandchildren live in a duplex above her mother. Family History I have updated the Family Hx as appropriate. Family History Problem Relation Alcohol/Drug Alcoholism in mother & father Hypertension M&F Asthma Father, brother, daughters Lung Disease Father Obesity M&F&Sister Diabetes Mother Arthritis M&F Heart Attack Father Diabetes Mother Physical Exam: Last 24 hour min/max Temp: 36.7 C (98.1 F) Temp Min: 36.7 C (98.1 F) Max: 36.8 C (98.2 F) Pulse: (!) 101 Pulse Min: 97 Max: 115 Resp: 16 Resp Min: 16 Max: 16 BP: 140/65 mmHg BP Min: 129/96 Max: 153/117 SpO2: 93 % SpO2 Min: 93 % Max: 100 % Body mass index is 89.42 kg/(m^2). General Appearance: obese, but otherwise well appearing HEENT: sclera anicteric Respiratory: CTAB Cardiovascular: Tachy, no mrg, JVD not elevated Gastrointestinal: obsese Ext: bilateral legs exquisitely tender to light touch, erythematous from feet to below the knees, no clear demarcation, mixed pitting/nonpitting edema Laboratory Interpretation: 139/5.1/20/16/0.82<126 Mg 1.9 14.02>10.3/34.9<307 WBC 14 ->10 Hg 10->9 AST 45 ALT 29 Alkph 114 tbili 0.3 Albumin 3.0 Protein 7.7 Lactate 1.3 BNP 64 Trop <0.02 VB.32 CO2 36 HCO3 18 EKG: sinus tach HR 117 Imaging Interpretation: CXR 11/10/15 The cardiomediastinal contour is normal. The lungs are clear. There is no definite pleural effusion. There is no pulmonary edema or pneumothorax. The bones are intact. Assessment and Plan: #Cellulitis, mild-moderate #Sepsis, 2/4 tachy and WBC 14k B/l lower ext erythema, tenderness, swelling. Although pt has risk factors for cellulitis -- LE edema, DMII -- exam is not completely consistent since has erythema without clear dem arcation or abscess formation. Is so she has failed oral abx tx, will continue with vanc st arted in ED. Will rule out DVT particularly given hx of what sounds like cerebral venous sin us thrombus. WBC 14 -> 10k after 1L fluids and vanc, remainder of cell lines down suggesting hemoconcentration. - LE duplex - DC TMP/SMX - Vancomycin (10/05 - ) - oxycodone 5-10mg q4hr prn for pain - wrap and elevate legs #Morbid obesity with rapid weight gain Roughly 100lb wt gain over last six months with mixed pitting/non-pitting edema. DDX incl udes progressive non-pathological weight gain, torsemide resistance, Pickwickian syndrome/d ecompensated HF. BNP normal but can be low in obesity. Reassuringly lungs clear and CXR shilpa ar. May consider [place]ROE although only 38 years old, possibly nephrotic syndrome to be thouroug h. Albumin slightly low 3.0, maybe contributing. No recent TSH in our system, will recheck. Also on Zyprexa 30mg qhs. - UA to rule proteinuria - TSH - TTE to rule out cardiogenic etiologies - consider ultrasound of liver to ru MON[place]E cirrhosis or CT abd/pelvis to rule out inguinal l ymphadneopathy - repeat outpatient sleep study - cont torsemide 40mg po bid - strict I&O, daily weights - hold k supplement given K 5.1 - hold phentermine qam #Exertional chest pain, typical anginal symptoms Unclear etiology, EKG reassuring, trop neg, will obtain TTE as above. Consider outpatient stress test #DMII - Insulin NPH 70/30 100u QHS - reduce down to 75U to start in AM as BG 120 this PM - moderate ISS - hold metformin in house #Depression #Anxiety Continue home meds - alprazolam 1mg TID prn - fluoxetine 40mg po qday - topiramate 200mg po bid - olanzapine 30mg po qhs #Hypothyroidism - continue armour thyroid 30mg po bid - repeat TSH as above #Chronic pain - cont gabapentin 300mg QID #Anemia, microcytic Chronic Hg ~10, no anemia work-up in our system, can consider in AM Will staff with Dr. Perez in AM Will Beltran MD Internal Medicine, PGY1 [id number] Associated attestation - Briana Perez MD - 11/07/2015 12:38 PM PDTFormatting of th is note might be different from the original. MEDICINE ATTENDING ADMISSION NOTE ADMIT DATE: 11/06/2015 6:40 PM TODAY'S DATE: 11/07/2015 (HOSPITAL DAY 1) I personally interviewed the patient, performed the de la cruz elements of the physical examinatio n, and agree with Dr. Beltran/Pawan's admission history, exam, assessment and plan. I have noted any additions or exceptions below. Additional History Feeling a bit better today. Does endorse that legs have never really gotten better with abx . Abd wall feels firmer to her. Overall feels more swollen. No other new concerns today and ROS neg except as noted. Physical Examination BP 128/63 | Pulse 100 | Temp 36.8 C (98.2 F) | RR 18 | Wt 214.551 kg (473 lb) | SpO2 98 % | BMI 89.42 kg/(m^2) Very obese woman, very pleasant, nontoxic appearing No heave +dilated veins in face JVP not visualized Abd wall firm/indurated in middle Pitting edema of bilat arms/legs Mild erythema to shins bilat Labs/Imaging LLE Duplex - + DVT femoral to popliteal RLE Duplex neg Chem wnl apart from glucose Hct 30 UA no prot Medications Reviewed Problem List Patients Hospital Problem List: Active Hospital Problems 1) *Acute venous embolism and thrombosis of deep vessels of distal end of left lower extre mity (HCC) 2) Morbid obesity (HCC) 3) Type 2 diabetes mellitus (HCC) 4) AMARA (obstructive sleep apnea) 5) Edema and weight gain 6) Hypoventilation associated with obesity (HCC) 7) Anasarca 8) Hyperglycemia Assessment and Plan 40 yo woman with type 2 DM, morbid obesity, untreated AMARA and obesity hypoventilation prese nting with subacute/chronic weight gain, subacute bilat LE erythema. Though she did have a m ild leukocytosis, favor that this is not cellulitis owing to bilat nature. Likely venous sta sis due to obesity/weight gain. Also found to have DVT which is contributing. Bigger issue is weight gain. Suspect RV dysfunction/PA HTN due to pulmonary issues. TTE tod ay to eval. Also considered hypoalbuminema (hers is mild), LV dysfunction, cirrhosis, etc. S he also has subacute dyspnea and chest pain. Given that she has a DVT we also considered PE. Would not change our mgmt (heparin gtt) for now. Plans 1. Iv diuresis 2. Stop abx and monitor 3. Heparin gtt for DVT 4. TTE See resident note for additional details. Briana Perez MD [facility] Division of Hospital Medicine documented in this encounter Procedure Notes Sulema Cedeño RN - 11/09/2015 2:58 PM PDTAssociated Order(s): PROCEDURE NOTEPatients admitt ed diagnosis: L03.116 Cellulitis of left lower extremity R60.1 Anasarca A41.9 Sepsis, due to unspecified organism (HCC) I50.9 Heart failure, unspecified (HCC) I82.402 DVT (deep venous thrombosis), left (HCC) PICC/Midline Insertion Procedure Note Indications:Frequent lab draws and Administration IV fluids and meds Procedure location: Unit:[facility] Room: 13 Providers: PICC Nurse name: Sulema Cedeño RN VAT Assisted by Gilda RAUSCH Pre-Procedure Consent: written consent obtained Consent given by: Patient Patient identity confirmed per protocol: Yes Team Pause: Immediatly prior to the procedure a pause per protocol was called. A pause veri fies correct patient, procedure, equipment, network support administrator and site/side marked as required. CLABSI Prevention Bundle: Skin preparation: Chloraprep Protective barrier: Cap, Mask, Hand scrub, Gown, Gloves and Full body drape. Cap and mask worn by assistive personnel.Sterile Ultrasound techniques (sterile gel, and sterile probe c over) used Dressing: Dressing applied prior of removal of full barrier drape and hemost atic agent applied Monitoring The patients vital signs were monitored by EKG, SaO2 and NIBP during the procedure. For det ails see EMR. Procedure Details Patient was placed in appropriate position The vascular anatomy was identified by Ultrasound Guidance.wire through the needle, introdu cer over the wire, then catheter through the introducer Tip was placed using TLS (Tip Locati ng System) and TPS (Tip Positioning System). . A non-tunneled PICC Double lumen 5 Fr was placed in the Right Arm area Cephalic vein. Ca theter lot number: [id number] with a length of 55 cm was selected and trimmed 0 cm to a rem aining length of 55 cm All ports aspirated for blood and flushed with saline Power-injectable line: yes Attempts 1 attempt(s) were made Complications None PICC catheter tip location Chest radiograph ordered to verify placement Adjustments made after chest film obtained: none External measurement of catheter exposed: 10cm cm. PICC catheter tip location: Cavo-Atrial Junction Estimated blood loss: <10mL documented in this encoun ter Consult Notes Skye Goyal, PharmD - 11/21/2015 7:35 AM PDTFormatting of this note might be different f rom the original. Pharmacy Services: Warfarin Anticoagulation Note Assessment/Plan: Elzbieta Cristina, a 40 year old female newly started on 11/07/15 on treatment with warfarin for deep venous thrombosis with an INR target of 2-3 - INR is within the therapeutic range at 2.85. - Warfarin: Warfarin 10 mg by mouth tonight @ 2100 - Therapeutic Bridging: no bridge - Next INR ordered for tomorrow AM - Monitor for signs and symptoms of bleeding - Patient Education: Patient education/educational assessment documented in the patient edu cation activity this admission on 11/09/15 - Pharmacy Services will continue to follow and make recommendations. Please page clinical pharmacist [phone]) or call central inpatient pharmacy ([phone]) with questions. Subjective/Objective: Allergies: Amoxicillin; Benadrilina; and Parlodel Diet: Reports changes to diet: No Patient is receiving continuous tube feedings: No Bruising or bleeding report: None noted Labs: Hemoglobin/hematocrit/platelets: 10.9/36.3/197 (11/15/15) CREATININE PLASMA (LAB) (mg/dL) Date Value 11/20/2015 0.95 INR (INR) Date Value Dose 11/21/2015 2.85 10 mg ordered 11/20/2015 2.70 10 mg 11/18/2014 2.59 10 mg 11/18/2015 2.64 10 mg 11/17/2015 2.07 15 mg 11/16/2015 1.83 15 mg 11/15/2015 1.79 12.5 mg 11/14/2015 1.46 12.5 mg 11/13/2015 1.34 12.5 mg 11/12/2015 1.25 10 mg 11/11/2015 1.23 10 mg 11/10/2015 1.13 7.5 mg 11/09/2015 1.2 7.5 mg 11/08/2015 1.20 5 mg 11/07/2015 1.14 5 mg Current medications: acetaminophen (TYLENOL) tablet 1,000 mg, 1,000 mg, oral, TID ALPRAZolam (XANAX) tablet 1 mg, 1 mg, oral, TID PRN alteplase (CATHFLO ACTIVASE) injection 2 mg, 2 mg, Intracatheter, PRN ascorbic acid tablet 500 mg, 500 mg, oral, DAILY bisacodyl (DULCOLAX) suppository 10 mg, 10 mg, rectal, DAILY PRN dextrose 50 % in water IV 25 mL, 25 mL, intravenous, PRN ergocalciferol (VITAMIN D2, DRISDOL) capsule 50,000 Units, 50,000 Units, oral, Once per day on Thu FLUoxetine (PROZAC) capsule 60 mg, 60 mg, oral, DAILY gabapentin (NEURONTIN) capsule 300 mg, 300 mg, oral, QID glucagon (GLUCAGEN) injection 1 mg, 1 mg, intramuscular, PRN glucose chewable tablet 16 g, 16 g, oral, PRN insulin lispro (HUMALOG) injection, , subcutaneous, QID insulin NPH (HUMULIN N) injection 75 Units, 75 Units, subcutaneous, BEFORE BREAKFAST magnesium oxide (MAG-OX) tablet 400 mg, 400 mg, oral, DAILY menthol-zinc oxide (CALAZIME) topical paste, , topical, TID PRN nystatin (MYCOSTATIN) powder, , topical, BID OLANZapine (ZYPREXA) tablet 30 mg, 30 mg, oral, HS ondansetron (ZOFRAN) tablet 8 mg, 8 mg, oral, Q12H PRN oxyCODONE (immediate release) (ROXICODONE) tablet 5-10 mg, 5-10 mg, oral, Q4H PRN polyethylene glycol (MIRALAX) powder 17 g, 17 g, oral, DAILY polyethylene glycol (MIRALAX) powder 34 g, 34 g, oral, TID PRN potassium chloride SR (K-DUR) tablet 40 mEq, 40 mEq, oral, TID senna-docusate (SENOKOT S) 8.6-50 mg 2 tablet, 2 tablet, oral, BID thyroid tablet 30 mg, 30 mg, oral, DAILY topiramate (TOPAMAX) tablet 200 mg, 200 mg, oral, BID torsemide (DEMADEX) tablet 80 mg, 80 mg, oral, BID ( and ) warfarin (COUMADIN) tablet 10 mg, 10 mg, oral, QPM Patient reports missing warfarin doses: No Current medication interactions: Yes - fluoxetine Events affecting anticoagulation (vitamin K, FFP, PRBC administration): None Other anticoagulants/anti-platelet agents: None Home warfarin regimen: TBD (Seems to be stabilizing on ~10 mg daily) Thank you, Doris CavazosD, BCPS Jose Berkowitz MD - 0 11/20/2015 2:24 PM PDT CARDIOLOGY CONSULTATION (follow up note) Fellow: Jose Valentine M.D. Follow up note 11/20/2015 Significant past 24 hours events: 1. No event overnight. Diuresed 37 liters this admission with a 60 lbs weight loss Subjective Interval Hx: Subjective: Patient is able to walk around the halls of the unit. Intake/Output Summary (Last 24 hours) at 11/20/15 0700 Last data filed at 11/20/15 0640 Gross per 24 hour Intake 3016 ml Output 5003 ml Net -1987 ml Current Meds acetaminophen (TYLENOL) tablet 1,000 mg, 1,000 mg, oral, TID ALPRAZolam (XANAX) tablet 1 mg, 1 mg, oral, TID PRN alteplase (CATHFLO ACTIVASE) injection 2 mg, 2 mg, Intracatheter, PRN ascorbic acid tablet 500 mg, 500 mg, oral, DAILY bisacodyl (DULCOLAX) suppository 10 mg, 10 mg, rectal, DAILY PRN dextrose 50 % in water IV 25 mL, 25 mL, intravenous, PRN ergocalciferol (VITAMIN D2, DRISDOL) capsule 50,000 Units, 50,000 Units, oral, Once per day on Thu FLUoxetine (PROZAC) capsule 60 mg, 60 mg, oral, DAILY furosemide (LASIX) IV 120 mg, 120 mg, intravenous, DAILY gabapentin (NEURONTIN) capsule 300 mg, 300 mg, oral, QID glucagon (GLUCAGEN) injection 1 mg, 1 mg, intramuscular, PRN glucose chewable tablet 16 g, 16 g, oral, PRN insulin lispro (HUMALOG) injection, , subcutaneous, QID insulin NPH (HUMULIN N) injection 75 Units, 75 Units, subcutaneous, BEFORE BREAKFAST magnesium oxide (MAG-OX) tablet 400 mg, 400 mg, oral, DAILY menthol-zinc oxide (CALAZIME) topical paste, , topical, TID PRN metolazone (ZAROXOLYN) tablet 2.5 mg, 2.5 mg, oral, DAILY nystatin (MYCOSTATIN) powder, , topical, BID OLANZapine (ZYPREXA) tablet 30 mg, 30 mg, oral, HS ondansetron (ZOFRAN) tablet 8 mg, 8 mg, oral, Q12H PRN oxyCODONE (immediate release) (ROXICODONE) tablet 5-10 mg, 5-10 mg, oral, Q4H PRN polyethylene glycol (MIRALAX) powder 17 g, 17 g, oral, DAILY polyethylene glycol (MIRALAX) powder 34 g, 34 g, oral, TID PRN potassium chloride SR (K-DUR) tablet 40 mEq, 40 mEq, oral, TID senna-docusate (SENOKOT S) 8.6-50 mg 2 tablet, 2 tablet, oral, BID thyroid tablet 30 mg, 30 mg, oral, DAILY topiramate (TOPAMAX) tablet 200 mg, 200 mg, oral, BID torsemide (DEMADEX) tablet 80 mg, 80 mg, oral, DAILY warfarin (COUMADIN) tablet 10 mg, 10 mg, oral, QPM Objective: BP 128/57 | Pulse 112 | Temp (Src) 36.3 C (97.3 F) (Oral) | RR 16 | Ht 1.549 m (5' 1") | Wt 187.154 kg (412 lb 9.6 oz) | SpO2 95% | BMI 78 kg/(m^2) GEN: sitting on edege of bed, no acute distress, obesity HEENT: JVP challenging given neck size CV: tachycardic, regular, normal S1S2 CHEST: CTA, no rales ABD: soft, not tender, (+) BS EXT: no edema LAB: CBC with diff last 72 hours (or 3 results) Chemistries: Last 72 Hours (or 3 results): Recent Labs 11/18/15 0625 11/18/15 1425 11/19/15 1420 11/20/15 0600 11/20/15 0927 11/20/15 1251 11/20/15 1318 NA 138 -- -- -- 136 -- 139 -- -- -- K 3.6 -- 3.0* -- 2.7* -- 2.7* -- -- -- CL 106 -- -- -- 98 -- 99 -- -- -- BICARB 23 -- -- -- 27 -- 29 -- -- -- BUN 31* -- -- -- 42* -- 46* -- -- -- CR 0.86 -- -- -- 1.03 -- 0.95 -- -- -- GLU 148* < > -- < > 214* < > 162* 174* 153* 146* CA 9.1 -- -- -- 9.5 -- 9.6 -- -- -- MG 2.1 -- 2.2 -- 2.2 -- 2.5 -- -- -- < > = values in this interval not displayed. Lab Results Component Value Date INRPT 2.70* 11/20/2015 No results found for: CHOL, LDL, HDL, TRI Lab Results Component Value Date TROPONIN <0.02 11/06/2015 Lab Results Component Value Date A1C 5.3 08/28/2014 Lab Results Component Value Date TSH 3.93 11/07/2015 TTE: 11/07/15: 1. The interpretation of images is limited by poor acoustic windows. 2. The left ventricular cavity size is normal. 3. The LV ejection fraction is normal. 4. The right ventricular size is moderately enlarged. 5. Moderately reduced RV systolic function. RVSP 28 mmHg. 6. There are no prior exams available for comparison. Assessment 40 y/o obese female admitted with volume overload with normal LV systolic function, mildly reduced RV systolic function with estimated RVSP 28 mmHg on echocardiogram. She has since s ignificantly diuresed and whose symptoms have significantly improved. At this point, withou t overt signs of pulmonary hypertension on echocardiogram, with significantly improved exert ional symptoms, would not recommend RHC. We have asked her to find a dado operator close to home to follow up with her to assure she continues to have well managed fluid management. S he is being transitioned to PO diuretics. We have encouraged her to continue with evaluatio n for gastric bypass as weight loss can be beneficial for cardiac function. Diagnosis/ Active Problem List: 1. Congestive heart failure with preserved EF 2. Mild RV systolic dysfunction 3. Obesity Management and Plan: 1. Continued follow up with bariatric surgery clinic Case discussed with Gadiel Hoover DO who agrees with the above said assessment and plan . Thank you for this consult. Jose Valentine MD CV Fellow Division of Cardiovascular Medicine [facility] Pager [phone] Chanda Aguilar, Manjeet armD - 11/20/2015 10:42 AM PDT Pharmacy Services: Warfarin Anticoagulation Note Assessment/Plan: Elzbieta Cristina, a 40 year old female newly started on 11/07/15 on treatment with warfarin for deep venous thrombosis with an INR target of 2-3 - INR is within the therapeutic range at 2.70 - Warfarin: Warfarin 10 mg by mouth tonight @ 2100 - Therapeutic Bridging: completed - Next INR ordered for tomorrow AM - Monitor for signs and symptoms of bleeding - Patient Education: Patient education/educational assessment documented in the patient edu cation activity this admission on 11/09/15 - Pharmacy Services will continue to follow and make recommendations. Please page clinical pharmacist [phone]) or call central inpatient pharmacy ([phone]) with questions. Subjective/Objective: Allergies: Amoxicillin; Benadrilina; and Parlodel Diet: Reports changes to diet: No Patient is receiving continuous tube feedings: No Bruising or bleeding report: None noted Labs: Hemoglobin/hematocrit/platelets: 10.9/36.3/197 (11/15/15) ALBUMIN, PLASMA (LAB) (g/dL) Date Value 11/13/2015 3.2* CREATININE PLASMA (LAB) (mg/dL) Date Value 11/20/2015 0.95 INR (INR) Date Value Dose 11/20/2015 2.70 10 mg ordered 11/18/2014 2.59 10 mg 11/18/2015 2.64 10 mg 11/17/2015 2.07 15 mg 11/16/2015 1.83 15 mg 11/15/2015 1.79 12.5 mg 11/14/2015 1.46 12.5 mg 11/13/2015 1.34 12.5 mg 11/12/2015 1.25 10 mg 11/11/2015 1.23 10 mg 11/10/2015 1.13 7.5 mg 11/09/2015 1.2 7.5 mg 11/08/2015 1.20 5 mg 11/07/2015 1.14 5 mg Current medications: acetaminophen (TYLENOL) tablet 1,000 mg, 1,000 mg, oral, TID ALPRAZolam (XANAX) tablet 1 mg, 1 mg, oral, TID PRN alteplase (CATHFLO ACTIVASE) injection 2 mg, 2 mg, Intracatheter, PRN ascorbic acid tablet 500 mg, 500 mg, oral, DAILY bisacodyl (DULCOLAX) suppository 10 mg, 10 mg, rectal, DAILY PRN dextrose 50 % in water IV 25 mL, 25 mL, intravenous, PRN ergocalciferol (VITAMIN D2, DRISDOL) capsule 50,000 Units, 50,000 Units, oral, Once per day thu FLUoxetine (PROZAC) capsule 60 mg, 60 mg, oral, DAILY furosemide (LASIX) IV 120 mg, 120 mg, intravenous, DAILY gabapentin (NEURONTIN) capsule 300 mg, 300 mg, oral, QID glucagon (GLUCAGEN) injection 1 mg, 1 mg, intramuscular, PRN glucose chewable tablet 16 g, 16 g, oral, PRN insulin lispro (HUMALOG) injection, , subcutaneous, QID insulin NPH (HUMULIN N) injection 75 Units, 75 Units, subcutaneous, BEFORE BREAKFAST magnesium oxide (MAG-OX) tablet 400 mg, 400 mg, oral, DAILY menthol-zinc oxide (CALAZIME) topical paste, , topical, TID PRN metolazone (ZAROXOLYN) tablet 2.5 mg, 2.5 mg, oral, DAILY nystatin (MYCOSTATIN) powder, , topical, BID OLANZapine (ZYPREXA) tablet 30 mg, 30 mg, oral, HS oxyCODONE (immediate release) (ROXICODONE) tablet 5-10 mg, 5-10 mg, oral, Q4H PRN polyethylene glycol (MIRALAX) powder 17 g, 17 g, oral, DAILY polyethylene glycol (MIRALAX) powder 34 g, 34 g, oral, TID PRN potassium chloride SR (K-DUR) tablet 40 mEq, 40 mEq, oral, TID senna-docusate (SENOKOT S) 8.6-50 mg 2 tablet, 2 tablet, oral, BID thyroid tablet 30 mg, 30 mg, oral, DAILY topiramate (TOPAMAX) tablet 200 mg, 200 mg, oral, BID torsemide (DEMADEX) tablet 80 mg, 80 mg, oral, DAILY warfarin (COUMADIN) tablet 10 mg, 10 mg, oral, QPM Patient reports missing warfarin doses: N/A Current medication interactions: Yes - fluoxetine. Events affecting anticoagulation (vitamin K, FFP, PRBC administration): None Other anticoagulants/anti-platelet agents: none Home warfarin regimen: TBD Thank you, Chanda Pulido PharmD, [facility] Pager [phone] Chanda Aguilar, Ph armD - 11/19/2015 2:27 PM PDT Pharmacy Services: Warfarin Anticoagulation Note Assessment/Plan: Elzbieta Shereen Bonnie, a 40 year old female newly started on 11/07/15 on treatment with warfarin for deep venous thrombosis with an INR target of 2-3 - INR is within the therapeutic range at 2.59 - Warfarin: Warfarin 10 mg by mouth tonight @ 2100 - Therapeutic Bridging: completed - Next INR ordered for tomorrow AM - Monitor for signs and symptoms of bleeding - Patient Education: Patient education/educational assessment documented in the patient edu cation activity this admission on 11/09/15 - Pharmacy Services will continue to follow and make recommendations. Please page clinical pharmacist [phone]) or call central inpatient pharmacy ([phone]) with questions. Subjective/Objective: Allergies: Amoxicillin; Benadrilina; and Parlodel Diet: Reports changes to diet: No Patient is receiving continuous tube feedings: No Bruising or bleeding report: None noted Labs: Hemoglobin/hematocrit/platelets: 10.9/36.3/197 (11/15/15) ALBUMIN, PLASMA (LAB) (g/dL) Date Value 11/13/2015 3.2* CREATININE PLASMA (LAB) (mg/dL) Date Value 11/18/2015 0.86 INR (INR) Date Value Dose 11/18/2014 2.59 10 mg ordered 11/18/2015 2.64 10 mg 11/17/2015 2.07 15 mg 11/16/2015 1.83 15 mg 11/15/2015 1.79 12.5 mg 11/14/2015 1.46 12.5 mg 11/13/2015 1.34 12.5 mg 11/12/2015 1.25 10 mg 11/11/2015 1.23 10 mg 11/10/2015 1.13 7.5 mg 11/09/2015 1.2 7.5 mg 11/08/2015 1.20 5 mg 11/07/2015 1.14 5 mg Current medications: acetaminophen (TYLENOL) tablet 1,000 mg, 1,000 mg, oral, TID ALPRAZolam (XANAX) tablet 1 mg, 1 mg, oral, TID PRN alteplase (CATHFLO ACTIVASE) injection 2 mg, 2 mg, Intracatheter, PRN ascorbic acid tablet 500 mg, 500 mg, oral, DAILY bisacodyl (DULCOLAX) suppository 10 mg, 10 mg, rectal, DAILY PRN dextrose 50 % in water IV 25 mL, 25 mL, intravenous, PRN ergocalciferol (VITAMIN D2, DRISDOL) capsule 50,000 Units, 50,000 Units, oral, Once per day on Thu FLUoxetine (PROZAC) capsule 60 mg, 60 mg, oral, DAILY furosemide (LASIX) IV 120 mg, 120 mg, intravenous, BID ( and ) gabapentin (NEURONTIN) capsule 300 mg, 300 mg, oral, QID glucagon (GLUCAGEN) injection 1 mg, 1 mg, intramuscular, PRN glucose chewable tablet 16 g, 16 g, oral, PRN insulin lispro (HUMALOG) injection, , subcutaneous, QID insulin NPH (HUMULIN N) injection 75 Units, 75 Units, subcutaneous, BEFORE BREAKFAST magnesium oxide (MAG-OX) tablet 400 mg, 400 mg, oral, DAILY menthol-zinc oxide (CALAZIME) topical paste, , topical, TID PRN metolazone (ZAROXOLYN) tablet 2.5 mg, 2.5 mg, oral, DAILY nystatin (MYCOSTATIN) powder, , topical, BID OLANZapine (ZYPREXA) tablet 30 mg, 30 mg, oral, HS oxyCODONE (immediate release) (ROXICODONE) tablet 5-10 mg, 5-10 mg, oral, Q4H PRN polyethylene glycol (MIRALAX) powder 17 g, 17 g, oral, DAILY polyethylene glycol (MIRALAX) powder 34 g, 34 g, oral, TID PRN senna-docusate (SENOKOT S) 8.6-50 mg 2 tablet, 2 tablet, oral, BID thyroid tablet 30 mg, 30 mg, oral, DAILY topiramate (TOPAMAX) tablet 200 mg, 200 mg, oral, BID warfarin (COUMADIN) tablet 10 mg, 10 mg, oral, QPM Patient reports missing warfarin doses: N/A Current medication interactions: Yes - fluoxetine. Events affecting anticoagulation (vitamin K, FFP, PRBC administration): None Other anticoagulants/anti-platelet agents: none Home warfarin regimen: TBD Thank you, Chanda Pulido, PharmD, BCPS Pager [phone] Aubrey Stephenson, PharmD - 11/18/2015 8:33 AM PDTFormatting of this note might be different from the origi nal. Pharmacy Services: Anticoagulation Note - warfarin Anticoagulation Indication: deep venous thrombosis Goal INR: 2-3 Duration of therapy: indefinite Assessment/Plan: INR continues to rise and remains within the therapeutic range. Recommend d/c of heparin gt t at this time (pgd team). Given rate of INR rise will reduce dosing in attempt to prevent e levated INR in am. Notably, pt has required approximately 80mg over the past week to achieve INR goal. - Warfarin: reduce warfarin to 10mg po tonight; pending INR trend 11/18 consider initiation of warfarin 10mg SunTueThu/12.5mg all other days. - Daily INRs ordered with am labs - recommend d/c of heparin gtt. - Monitor for signs and symptoms of bleeding - Patient Education: Patient education/educational assessment documented in the patient edu cation activity this admission on 11/09/15 - Pharmacy Services will continue to follow and make recommendations. Please page clinical pharmacist [phone]) or call central inpatient pharmacy ([phone]) with questions. Subjective/Objective: Allergies: Amoxicillin; Benadrilina; and Parlodel Diet: Reports changes to diet: No Factors affecting absorption: No Patient is receiving continuous tube feedings: No Bruising or bleeding report: None noted Labs: Hemoglobin/hematocrit/platelets: ALBUMIN, PLASMA (LAB) (g/dL) Date Value 11/13/2015 3.2* CREATININE PLASMA (LAB) (mg/dL) Date Value 11/17/2015 0.86 INR (INR) Date Value Dose 11/18/2015 2.64 10 mg ordered 11/17/2015 2.07 15 mg 11/16/2015 1.83 15 mg 11/15/2015 1.79 12.5 mg 11/14/2015 1.46 12.5 mg 11/13/2015 1.34 12.5 mg 11/12/2015 1.25 10 mg 11/11/2015 1.23 10 mg 11/10/2015 1.13 7.5 mg 11/09/2015 1.2 7.5 mg 11/08/2015 1.20 5 mg 11/07/2015 1.14 5 mg Current medications: acetaminophen (TYLENOL) tablet 1,000 mg, 1,000 mg, oral, TID ALPRAZolam (XANAX) tablet 1 mg, 1 mg, oral, TID PRN ascorbic acid tablet 500 mg, 500 mg, oral, DAILY bisacodyl (DULCOLAX) suppository 10 mg, 10 mg, rectal, DAILY PRN dextrose 50 % in water IV 25 mL, 25 mL, intravenous, PRN ergocalciferol (VITAMIN D2, DRISDOL) capsule 50,000 Units, 50,000 Units, oral, Once per day thu FLUoxetine (PROZAC) capsule 60 mg, 60 mg, oral, DAILY furosemide (LASIX) IV 120 mg, 120 mg, intravenous, BID ( and ) gabapentin (NEURONTIN) capsule 300 mg, 300 mg, oral, QID glucagon (GLUCAGEN) injection 1 mg, 1 mg, intramuscular, PRN glucose chewable tablet 16 g, 16 g, oral, PRN heparin bolus from continuous infusion 10,000 Units, 46.6 Units/kg, intravenous, NEEDED (BOLUS) heparin bolus from continuous infusion 5,000 Units, 23.3 Units/kg, intravenous, NEEDED ( BOLUS) heparin in D5W IV infusion 25,000 units/250 mL, 1-4,000 Units/hr, intravenous, CONTINUOUS insulin lispro (HUMALOG) injection, , subcutaneous, QID insulin NPH (HUMULIN N) injection 75 Units, 75 Units, subcutaneous, BEFORE BREAKFAST magnesium oxide (MAG-OX) tablet 400 mg, 400 mg, oral, DAILY menthol-zinc oxide (CALAZIME) topical paste, , topical, TID PRN nystatin (MYCOSTATIN) powder, , topical, BID OLANZapine (ZYPREXA) tablet 30 mg, 30 mg, oral, HS oxyCODONE (immediate release) (ROXICODONE) tablet 5-10 mg, 5-10 mg, oral, Q4H PRN polyethylene glycol (MIRALAX) powder 17 g, 17 g, oral, DAILY polyethylene glycol (MIRALAX) powder 34 g, 34 g, oral, TID PRN senna-docusate (SENOKOT S) 8.6-50 mg 2 tablet, 2 tablet, oral, BID thyroid tablet 30 mg, 30 mg, oral, DAILY topiramate (TOPAMAX) tablet 200 mg, 200 mg, oral, BID warfarin (COUMADIN) tablet 15 mg, 15 mg, oral, QPM Patient reports missing warfarin doses: N/A Current medication interactions: Yes - Fluoxetine & thyroid, recommend avoiding NSAIDs whil e on warfarin Events affecting anticoagulation (vitamin K, FFP, PRBC administration): None Other anticoagulants/anti-platelet agents: Yes - heparin infusion as above Home warfarin regimen: not yet established Thank you for the consult, Maegan Mackay PharmD, [facility] Clinical Pharmacist, Medicine Pager: [phone] Du Stephenson PharmD - 11/17/2015 7:44 AM PDT Pharmacy Services: Anticoagulation Note Anticoagulation Indication: deep venous thrombosis Warfarin - Goal INR: 2-3 Duration of therapy: indefinite Heparin infusion - Goal Heparin level: 0.35-0.7 units/mL Current rate: 2850 units/hr Last heparin level: 0.53 (11/16 0539) Assessment/Plan: INR continues to rise and is now within the therapeutic range. Pt has required approximatel y 80mg over the past week to achieve INR goal. Will continue current dosing tonight to ensur e INR goal is maintained. Anticipate will be able to initiate maintenance dosing tomorrow @ approximately 80mg per week. - Warfarin: Continue warfarin 15mg po tonight, - Daily INRs ordered with am labs - Therapeutic Bridging: Last heparin level was within goal. Continue heparin infusion @ 285 0 units/hr. Continue heparin until INR >2 x24 hours. Anticipate d/c in am 11/17 pending INR - Next anti-Xa level due 11/18/2015 with am labs - Monitor for signs and symptoms of bleeding - Patient Education: Patient education/educational assessment documented in the patient edu cation activity this admission on 11/09/15 - Pharmacy Services will continue to follow and make recommendations. Please page clinical pharmacist [phone]) or call central inpatient pharmacy ([phone]) with questions. Subjective/Objective: Allergies: Amoxicillin; Benadrilina; and Parlodel Diet: Reports changes to diet: No Factors affecting absorption: No Patient is receiving continuous tube feedings: No Bruising or bleeding report: None noted Labs: Hemoglobin/hematocrit/platelets: Recent Labs 11/15/15 0549 HB 10.9* HCT 36.3 PLT 197 ALBUMIN, PLASMA (LAB) (g/dL) Date Value 11/13/2015 3.2* CREATININE PLASMA (LAB) (mg/dL) Date Value 11/17/2015 0.86 INR (INR) Date Value Dose 11/17/2015 2.07 15 mg ordered 11/16/2015 1.83 15 mg 11/15/2015 1.79 12.5 mg 11/14/2015 1.46 12.5 mg 11/13/2015 1.34 12.5 mg 11/12/2015 1.25 10 mg 11/11/2015 1.23 10 mg 11/10/2015 1.13 7.5 mg 11/09/2015 1.2 7.5 mg 11/08/2015 1.20 5 mg 11/07/2015 1.14 5 mg Current medications: acetaminophen (TYLENOL) tablet 1,000 mg, 1,000 mg, oral, TID ALPRAZolam (XANAX) tablet 1 mg, 1 mg, oral, TID PRN ascorbic acid tablet 500 mg, 500 mg, oral, DAILY bisacodyl (DULCOLAX) suppository 10 mg, 10 mg, rectal, DAILY PRN dextrose 50 % in water IV 25 mL, 25 mL, intravenous, PRN ergocalciferol (VITAMIN D2, DRISDOL) capsule 50,000 Units, 50,000 Units, oral, Once per day thu FLUoxetine (PROZAC) capsule 60 mg, 60 mg, oral, DAILY furosemide (LASIX) IV 120 mg, 120 mg, intravenous, BID ( and ) gabapentin (NEURONTIN) capsule 300 mg, 300 mg, oral, QID glucagon (GLUCAGEN) injection 1 mg, 1 mg, intramuscular, PRN glucose chewable tablet 16 g, 16 g, oral, PRN heparin bolus from continuous infusion 10,000 Units, 46.6 Units/kg, intravenous, NEEDED (BOLUS) heparin bolus from continuous infusion 5,000 Units, 23.3 Units/kg, intravenous, NEEDED ( BOLUS) heparin in D5W IV infusion 25,000 units/250 mL, 1-4,000 Units/hr, intravenous, CONTINUOUS insulin lispro (HUMALOG) injection, , subcutaneous, QID insulin NPH (HUMULIN N) injection 75 Units, 75 Units, subcutaneous, BEFORE BREAKFAST iron sucrose (VENOFER) 200 mg in NaCl 0.9 % IV, 200 mg, intravenous, DAILY magnesium oxide (MAG-OX) tablet 400 mg, 400 mg, oral, DAILY menthol-zinc oxide (CALAZIME) topical paste, , topical, TID PRN metolazone (ZAROXOLYN) tablet 2.5 mg, 2.5 mg, oral, DAILY nystatin (MYCOSTATIN) powder, , topical, BID OLANZapine (ZYPREXA) tablet 30 mg, 30 mg, oral, HS oxyCODONE (immediate release) (ROXICODONE) tablet 5-10 mg, 5-10 mg, oral, Q4H PRN polyethylene glycol (MIRALAX) powder 17 g, 17 g, oral, DAILY polyethylene glycol (MIRALAX) powder 34 g, 34 g, oral, TID PRN senna-docusate (SENOKOT S) 8.6-50 mg 2 tablet, 2 tablet, oral, BID thyroid tablet 30 mg, 30 mg, oral, DAILY topiramate (TOPAMAX) tablet 200 mg, 200 mg, oral, BID warfarin (COUMADIN) tablet 15 mg, 15 mg, oral, QPM Patient reports missing warfarin doses: N/A Current medication interactions: Yes - Fluoxetine & thyroid, recommend avoiding NSAIDs whil e on warfarin Events affecting anticoagulation (vitamin K, FFP, PRBC administration): None Other anticoagulants/anti-platelet agents: Yes - heparin infusion as above Home warfarin regimen: not yet established Thank you for the consult, Maegan Mackay, PharmD, [facility] Clinical Pharmacist, Medicine Pager: [phone] ERFoSkye olson PharmD - 11/16/2015 9:18 AM PDTFormatting of this note might be different from the origin al. Pharmacy Services: Warfarin Anticoagulation Note Assessment/Plan: Elzbieta Cristina, a 40 year old female newly started on 11/07/15 on treatment with warfarin for deep venous thrombosis with an INR target of 2-3 - INR is below the therapeutic range at 1.83. This is day 10 of warfarin/heparin bridge. In crease warfarin dose again tonight as INR continues to remain subtherapeutic on high doses o f warfarin. - Warfarin: Warfarin 15 mg by mouth tonight @ 2100 - Therapeutic Bridging: heparin infusion. Last anti-Xa level drawn at 0308 on 11/16/15 was t herapeutic at 0.51 units/mL. Consider transitioning to enoxaparin bridge with monitoring of Anti-Xa levels until INR is therapeutic. - Next INR ordered for tomorrow AM - Monitor for signs and symptoms of bleeding - Patient Education: Patient education/educational assessment documented in the patient edu cation activity this admission on 11/09/15 - Pharmacy Services will continue to follow and make recommendations. Please page clinical pharmacist [phone]) or call central inpatient pharmacy ([phone]) with questions. Subjective/Objective: Allergies: Amoxicillin; Benadrilina; and Parlodel Diet: Reports changes to diet: No Patient is receiving continuous tube feedings: No Bruising or bleeding report: None noted Labs: Hemoglobin/hematocrit/platelets: 10.9/36.3/197 (11/15/15) ALBUMIN, PLASMA (LAB) (g/dL) Date Value 11/13/2015 3.2* CREATININE PLASMA (LAB) (mg/dL) Date Value 11/16/2015 0.96 INR (INR) Date Value Dose 11/16/2015 1.83 15 mg ordered 11/15/2015 1.79 12.5 mg 11/14/2015 1.46 12.5 mg 11/13/2015 1.34 12.5 mg 11/12/2015 1.25 10 mg 11/11/2015 1.23 10 mg 11/10/2015 1.13 7.5 mg 11/09/2015 1.2 7.5 mg 11/08/2015 1.20 5 mg 11/07/2015 1.14 5 mg Current medications: acetaminophen (TYLENOL) tablet 1,000 mg, 1,000 mg, oral, TID ALPRAZolam (XANAX) tablet 1 mg, 1 mg, oral, TID PRN ascorbic acid tablet 500 mg, 500 mg, oral, DAILY bisacodyl (DULCOLAX) suppository 10 mg, 10 mg, rectal, DAILY PRN dextrose 50 % in water IV 25 mL, 25 mL, intravenous, PRN ergocalciferol (VITAMIN D2, DRISDOL) capsule 50,000 Units, 50,000 Units, oral, Once per day on Thu FLUoxetine (PROZAC) capsule 60 mg, 60 mg, oral, DAILY furosemide (LASIX) IV 120 mg, 120 mg, intravenous, BID ( and ) gabapentin (NEURONTIN) capsule 300 mg, 300 mg, oral, QID glucagon (GLUCAGEN) injection 1 mg, 1 mg, intramuscular, PRN glucose chewable tablet 16 g, 16 g, oral, PRN heparin bolus from continuous infusion 10,000 Units, 46.6 Units/kg, intravenous, NEEDED (BOLUS) heparin bolus from continuous infusion 5,000 Units, 23.3 Units/kg, intravenous, NEEDED ( BOLUS) heparin in D5W IV infusion 25,000 units/250 mL, 1-4,000 Units/hr, intravenous, CONTINUOUS insulin lispro (HUMALOG) injection, , subcutaneous, QID insulin NPH (HUMULIN N) injection 75 Units, 75 Units, subcutaneous, BEFORE BREAKFAST iron sucrose (VENOFER) 200 mg in NaCl 0.9 % IV, 200 mg, intravenous, DAILY magnesium oxide (MAG-OX) tablet 400 mg, 400 mg, oral, DAILY menthol-zinc oxide (CALAZIME) topical paste, , topical, TID PRN nystatin (MYCOSTATIN) powder, , topical, BID OLANZapine (ZYPREXA) tablet 30 mg, 30 mg, oral, HS oxyCODONE (immediate release) (ROXICODONE) tablet 5-10 mg, 5-10 mg, oral, Q4H PRN polyethylene glycol (MIRALAX) powder 17 g, 17 g, oral, DAILY polyethylene glycol (MIRALAX) powder 34 g, 34 g, oral, TID PRN senna-docusate (SENOKOT S) 8.6-50 mg 2 tablet, 2 tablet, oral, BID thyroid tablet 30 mg, 30 mg, oral, DAILY topiramate (TOPAMAX) tablet 200 mg, 200 mg, oral, BID warfarin (COUMADIN) tablet 15 mg, 15 mg, oral, QPM Patient reports missing warfarin doses: N/A Current medication interactions: Yes - fluoxetine. Recommend avoiding NSAIDs while on warfa rin. Events affecting anticoagulation (vitamin K, FFP, PRBC administration): None Other anticoagulants/anti-platelet agents: Yes - heparin infusion Home warfarin regimen: TBD Thank you, Skye Goyal PharmD, BCPS Skye Jenkins Phar mD - 11/15/2015 7:58 AM PDT Pharmacy Services: Warfarin Anticoagulation Note Assessment/Plan: Elzbieta Cristina, a 40 year old female newly started on 11/07/15 on treatment with warfarin for deep venous thrombosis with an INR target of 2-3 - INR is below the therapeutic range at 1.79, still trending up. This is Day 9 of warfarin/ heparin bridge. - Warfarin: Warfarin 12.5 mg by mouth tonight @ 2100 - Therapeutic Bridging: heparin infusion. Last anti-Xa level drawn at 0549 on 11/15/15 was s upratherapeutic at 0.73 units/mL RN adjusted rate appropriately. - Next INR ordered for tomorrow AM - Monitor for signs and symptoms of bleeding - Patient Education: Patient education/educational assessment documented in the patient edu cation activity this admission on 11/09/15 - Pharmacy Services will continue to follow and make recommendations. Please page clinical pharmacist [phone]) or call central inpatient pharmacy ([phone]) with questions. Subjective/Objective: Allergies: Amoxicillin; Benadrilina; and Parlodel Diet: Reports changes to diet: No Patient is receiving continuous tube feedings: No Bruising or bleeding report: None noted Labs: Hemoglobin/hematocrit/platelets: 10.9/36.3/197 (11/15/15) ALBUMIN, PLASMA (LAB) (g/dL) Date Value 11/13/2015 3.2* CREATININE PLASMA (LAB) (mg/dL) Date Value 11/15/2015 0.84 INR (INR) Date Value Dose 11/15/2015 1.79 12.5 mg ordered 11/14/2015 1.46 12.5 mg 11/13/2015 1.34 12.5 mg 11/12/2015 1.25 10 mg 11/11/2015 1.23 10 mg 11/10/2015 1.13 7.5 mg 11/09/2015 1.2 7.5 mg 11/08/2015 1.20 5 mg 11/07/2015 1.14 5 mg Current medications: acetaminophen (TYLENOL) tablet 1,000 mg, 1,000 mg, oral, TID ALPRAZolam (XANAX) tablet 1 mg, 1 mg, oral, TID PRN ascorbic acid tablet 500 mg, 500 mg, oral, DAILY bisacodyl (DULCOLAX) suppository 10 mg, 10 mg, rectal, DAILY PRN dextrose 50 % in water IV 25 mL, 25 mL, intravenous, PRN ergocalciferol (VITAMIN D2, DRISDOL) capsule 50,000 Units, 50,000 Units, oral, Once per day on Thu FLUoxetine (PROZAC) capsule 60 mg, 60 mg, oral, DAILY furosemide (LASIX) IV 100 mg, 100 mg, intravenous, BID ( and ) gabapentin (NEURONTIN) capsule 300 mg, 300 mg, oral, QID glucagon (GLUCAGEN) injection 1 mg, 1 mg, intramuscular, PRN glucose chewable tablet 16 g, 16 g, oral, PRN heparin bolus from continuous infusion 10,000 Units, 46.6 Units/kg, intravenous, NEEDED (BOLUS) heparin bolus from continuous infusion 5,000 Units, 23.3 Units/kg, intravenous, NEEDED ( BOLUS) heparin in D5W IV infusion 25,000 units/250 mL, 1-4,000 Units/hr, intravenous, CONTINUOUS insulin lispro (HUMALOG) injection, , subcutaneous, QID insulin NPH (HUMULIN N) injection 75 Units, 75 Units, subcutaneous, BEFORE BREAKFAST iron sucrose (VENOFER) 200 mg in NaCl 0.9 % IV, 200 mg, intravenous, DAILY magnesium oxide (MAG-OX) tablet 400 mg, 400 mg, oral, DAILY menthol-zinc oxide (CALAZIME) topical paste, , topical, TID PRN nystatin (MYCOSTATIN) powder, , topical, BID OLANZapine (ZYPREXA) tablet 30 mg, 30 mg, oral, HS oxyCODONE (immediate release) (ROXICODONE) tablet 5-10 mg, 5-10 mg, oral, Q4H PRN polyethylene glycol (MIRALAX) powder 17 g, 17 g, oral, DAILY polyethylene glycol (MIRALAX) powder 34 g, 34 g, oral, TID PRN potassium chloride (KLOR-CON) packet 60 mEq, 60 mEq, oral, ONCE senna-docusate (SENOKOT S) 8.6-50 mg 2 tablet, 2 tablet, oral, BID thyroid tablet 30 mg, 30 mg, oral, DAILY topiramate (TOPAMAX) tablet 200 mg, 200 mg, oral, BID warfarin (COUMADIN) tablet 12.5 mg, 12.5 mg, oral, QPM Patient reports missing warfarin doses: N/A Current medication interactions: Yes - fluoxetine. Recommend avoiding NSAIDs while on warfa rin. Events affecting anticoagulation (vitamin K, FFP, PRBC administration): None Other anticoagulants/anti-platelet agents: Yes - heparin infusion Home warfarin regimen: TBD Thank you, Skye Goyal PharmD, BCPS Odette Jamil MD - 11/14/2015 1:11 PM PDT CARDIOLOGY INITIAL CONSULT NOTE Attending Physician: Odette Naylor MD Consult Question: Consideration of RHC to evaluate for pulmonary HTN HPI: Ms. Cristina is a 40 yo obese F w/ Type II DM, HTN, OHS, PCOS and hypothyroidism who p/w chronic progressive weight gain and YO for whom cardiology is consulted for consideration o f right heart catheterization to evaluate for pulmonary hypertension. The patient was admitted the night of 11/06/15 from endocrinology clinic after concern for L LE cellulitis. She has chronic lower extremity edema for which she takes Torsemide 40mg PO B ID. On admission, the patient reported about 8 months of progressive weight gain (about 90 l bs) even despite having recently taken a weight loss pill. Over the past several months she noted increased swelling and pain in her lower extremities. Over the past several weeks, she noted YO to the point where she could only walk about 10ft whereas last summer she could d o all her usual activities easily. In the ED, she was given 1 dse of Vancomycin for presumed cellulitis. Upon arrival to the [facility], she was found to have a DVT so Abx were discontinued and she was placed on a heparin gt t and is currently being transitioned to warfarin. She has also been aggressively diuresed w [facility] IV Lasix and her weight has decreased from 471 lbs -> 418 lbs. Overall, the patient feels much improved since admission. Her shortness of breath is better and her exercise tolerance as increased from 10 feet to being able to walk around the [place]. She also reports the swelling and pain in her legs have improved. She denies orthopnea or P ND. Past Medical History: Past Medical History Diagnosis Date Neck pain Insomnia Allergic rhinitis Lymphedema Diverticulitis of colon Hemorrhoids UTI (urinary tract infection) Tinea corporis Osteoarthritis of knee TIA (transient ischemic attack) due to Bromocriptine Myalgia and myositis Bipolar disorder ([facility]) Depression Staphylococcal infection Anemia Chronic wound infection of abdomen ([facility]) from 2010 Morbid obesity with body mass index of 70 and over in adult ([facility]) Incisional hernia, incarcerated 2013 Hernia of abdominal wall Stroke ([facility]) Dizziness Numbness Heart burn Nausea Abdominal pain Shortness of breath Pneumonia Cough Palpitations Kidney stone Leaking of urine Irregular periods Abnormal ThinPrep Pap test of vagina Leg sore Anxiety Glaucoma Review of Systems: ROS otherwise normal. Home Medications: I have obtained and documented the prior to admission medication list and it is accurate. Prior to Admission Medications Prescriptions ALPRAZolam 1 mg oral tablet Sig: Take 1 mg by mouth three times daily as needed for anxiety. CALCIUM [id number] ORAL Sig: Take 2 tablets by mouth two times daily. FLUoxetine 20 mg oral tablet Sig: Take 60 mg by mouth once daily at bedtime. HYDROcodone-acetaminophen 10-325 mg oral tablet Sig: Take 1 tablet by mouth every four hours as needed. OLANZapine 15 mg oral tablet Sig: Take 30 mg by mouth once daily at bedtime. SULFAMETHOXAZOLE/TRIMETHOPRIM (BACTRIM ORAL) Sig: Take by mouth two times daily. ascorbic acid (VITAMIN C) 500 mg Oral tablet Sig: Take 500 mg by mouth once daily. eletriptan 20 mg oral tablet Sig: Take 20 mg by mouth as needed for migraine. May repeat in 2 hours if necessary; Max of 2 doses per 24 hour period. ergocalciferol (VITAMIN D2) 50,000 unit oral capsule Sig: Take 50,000 Units by mouth twice weekly (on Thursday and ). gabapentin 300 mg oral capsule Sig: Take 300 mg by mouth four times daily. insulin NPH-insulin regular 70-30 (RELION NOVOLIN 70/30) 100 unit/mL (70-30) subcutaneous s uspension Sig: Inject 100 Units under the skin (SUBC) once daily at bedtime. magnesium oxide 400 mg oral tablet Sig: Take 400 mg by mouth once daily. metFORMIN 1,000 mg Oral tablet Sig: Take 1,000 mg by mouth two times daily. phentermine 37.5 mg oral tablet Sig: Take 1 tablet by mouth once daily in the morning. Administer before breakfast. Patient taking differently: Take 37.5 mg by mouth before breakfast. Administer before break fast. piroxicam 20 mg Oral capsule Sig: Take 20 mg by mouth once daily at bedtime. potassium chloride SR 10 mEq oral tablet,ER particles/crystals Sig: Take 10 mEq by mouth once daily. pseudoephedrine 60 mg oral tablet Sig: Take 120 mg by mouth once daily as needed. ranitidine 150 mg oral tablet Sig: Take 150 mg by mouth once daily as needed. Indications: HEARTBURN sodium fluoride 1.1 % dental cream Sig: Place onto the teeth. Use to brush teeth 2 to 3 times daily as directed. Do not eat d rink or rinse mouth immediately following use. Do not swallow thyroid (ARMOUR THYROID) 30 mg oral tablet tab Sig: Take 30 mg by mouth once daily. topiramate 200 mg oral tablet Sig: Take 200 mg by mouth two times daily. Indications: MIGRAINE PREVENTION torsemide 20 mg oral tablet Sig: Take 40 mg by mouth two times daily. traZODone 150 mg Oral tablet Sig: Take 150 mg by mouth once daily at bedtime. Facility-Administered Medications: None Allergies I have reviewed and updated the allergy list. Allergies Allergen Reactions Amoxicillin Benadrilina [Diphenhydramine Hcl] Hives Parlodel [Bromocriptine] Unknown Blood clots Social History I have updated the Social Hx as appropriate. History Substance Use Topics Smoking status: Former Smoker Smokeless tobacco: Never Used Alcohol Use: No Social History Narrative Updated 11/09/15 She lives in [place] with her mother and her sister (also her caregiver) lives in an artment/[facility]. She has 2 grandchildren (age 4 and 7) who live with her daughter and son-in-law Her boyfriend lives in [place] Family History I have updated the Family Hx as appropriate. Family History Problem Relation Alcohol/Drug Alcoholism in mother & father Hypertension M&F Asthma Father, brother, daughters Lung Disease Father Obesity M&F&Sister Diabetes Mother Arthritis M&F Heart Attack Father Diabetes Mother Autoimmune Disease Sister lupus Physical Exam: Last 24 hour min/max Temp: 36.1 C (97 F) Temp Min: 36.1 C (97 F) Max: 36.9 C (98.4 F) Pulse: 115 Pulse Min: 104 Max: 115 Resp: 18 Resp Min: 18 Max: 18 BP: 145/70 mmHg BP Min: 111/72 Max: 145/70 SpO2: 96 % SpO2 Min: 91 % Max: 96 % Body mass index is 79.19 kg/(m^2). Intake/Output Summary (Last 24 hours) at 11/14/15 1329 Last data filed at 11/14/15 1000 Gross per 24 hour Intake 1219 ml Output 3150 ml Net -1931 ml Intake/Output Summary (since admission) at 11/06/15 1840 Last data filed at 11/14/15 1000 Gross for the last 8 days Intake 9571.5 ml Output 38842 ml Net since Admission -90724.5 ml General Appearance: AAOx3, NAD HEENT: MMM, no oral lesions Respiratory: distant breath sounds B/L, though no audible crackles Cardiovascular: tachycardic, no MRG Gastrointestinal: obese, soft, NTND Ext: wwp, no rashes, trace pitting edema in the feet Neurologic: grossly intact Psychiatric: appropriate Laboratory Interpretation: CBC with diff last 72 hours (or 3 results) - Refreshable Recent Labs 11/13/15 0544 WBC 11.11* HB 10.7* HCT 36.3 PLT 272 NEUTROPERC 52.0 LYMPHPERC 30.1 MONOPERC 9.1* BASOPERC 0.6 EOSPERC 6.9* Chemistries: Last 72 Hours (or 3 results) - Refreshable Recent Labs 11/12/15 2347 11/13/15 0544 11/13/15 2145 11/14/15 0419 11/14/15 0942 NA 137 138 -- -- 138 -- K 3.6 3.6 -- -- 3.4 -- CL 104 106 -- -- 105 -- BICARB 23 23 -- -- 24 -- BUN 23* 23* -- -- 25* -- CR 0.99 0.88 -- -- 0.88 -- GLU 149* 130* < > 159* 152* 128* CA 9.4 9.3 -- -- 9.4 -- MG 2.3 2.3 -- -- 2.4 -- < > = values in this interval not displayed. Liver Tests: Last 72 hours (or 3 results) Recent Labs 11/13/15 0544 AST 47* ALT 55 TBILI 0.4 AP 101* ALB 3.2* TP 7.7 BNP: 64 Troponin: <0.01 TSH: 3.93 Cardiac Imaging: EKG (11/06/15): Sinus tachycardia, normal axis and intervals, Q waves V1-V3 CXR (11/06/15): Clear lungs TTE (11/07/15): 1. The interpretation of images is limited by poor acoustic windows. 2. The left ventricular cavity size is normal. 3. The LV ejection fraction is normal. 4. The right ventricular size is moderately enlarged. 5. Moderately reduced RV systolic function. (RVSP 28) 6. There are no prior exams available for comparison. Other Imaging: LE Dopplers (11/07/15): Abnormal Doppler ultrasound exam of the left lower extremity venous system with occlusive thrombus seen within the mid and distal femoral vein and popliteal vein. Nonocclusive thrombus in left posterior tibial vein. Bilateral common femoral veins patent. Assessment and Plan: Ms. Cristina is a 40 yo obese F who was admitted with signs and symptoms of volume overload wi TTE revealing of normal LV function and mildly reduced RV function for whom cardiology is consulted for consideration of right heart catheterization to evaluate for pulmonary hypert ension. Although this patient is certainly at risk for pulmonary hypertension with her OHS, likely AMARA, it is not clear at this time that this is what she has. Although the formal echo read reported an enlarged RV with reduced RV function, upon reviewing these images ourselve s, these findings are mild. Would expect too that if her dyspnea was purely due to intrinsi c pulmonary hypertension, that this would not have improved as much as it has with just diur esis. A more likely alternative explanation of her symptoms is diastolic heart failure and t [facility] would continue to encourage weight loss and a low sodium/fluid restricted diet. It is un clear why her Torsemide reportedly stopped working for her, though she will likely need a hi gher dose upon discharge. Alternatively, her shortness of breath may be explained by a concu rrent PE given her known DVT, hx of prior thrombosis and ongoing tachycardia, though agree t hat working this up would be futile as it would not spinning frame changer. In the interim, we wo uld suggest continued diuresis. Though her volume status is difficult to interpret, her dry weight based on chart review is likely around 390-400lbs, so would diurese until her creatin ine bumps. When she is dry, we will reassess her symptoms. Given how far she lives from [facility] , it would not be unreasonable to pursue right heart catheterization this admission, althoug h expect that if she has pulmonary hypertension it would not be severe and our recommend wou ld still be for weight loss and management of other factors such as AMARA. - Continue heart failure education; we will have our nurse visit the patient as well. - Please provide patient with list of Vitamin K rich foods as she had several questions fo r us about this. - Would continue to diurese until creatinine bumps. - We will follow from afar. Please call us when creatinine bumps. The patient was seen and discussed with the attending physician, Dr. Naylor, who agrees with my assessment and plan. Geno Loza MD Internal Medicine Resident, PGY2 Pager: [phone] Attending Note I have seen and examined Ms. Cristina and discussed the patient's management with the resident . I reviewed the resident s note above and agree with the documented findings and plan of care. We reviewed her echocardiogram and it does not show the hallmarks of significant pulm onary hypertension although it is clearly not the best diagnostic test. She has multiple ra sons to have some degree of elevated PA pressures but her overall picture is more consistent with diastolic CHF. I would recommend fully diuresing her (i.e. until BUN/creatinine bump) before pursuing a right heart catheterization. Unfortunately her weight may exceed the limit of the cath table. Once we reach her dry weight we will check on this. [place] and I would favor keeping her here until she is dry. If she does not want to stay that long, we can look into what her options for follow-up are. Odette Naylor MD Director Specialty, [place] [facility] ERFoSkye olson, PharmD - 11/14/2015 7:19 AM PDT Pharmacy Services: Warfarin Anticoagulation Note Assessment/Plan: Elzbieta Cristina, a 40 year old female newly started on 11/07/15 on treatment with warfarin for deep venous thrombosis with an INR target of 2-3 - INR is below the therapeutic range at 1.46, slowly trending up. - Warfarin: Warfarin 12.5 mg by mouth tonight @ 2100 - Therapeutic Bridging: heparin infusion. Last anti-Xa level drawn at 0419 on 11/14/15 was s upratherapeutic at 0.73 units/mL RN adjusted rate appropriately - Next INR ordered for tomorrow AM - Monitor for signs and symptoms of bleeding - Patient Education: Patient education/educational assessment documented in the patient edu cation activity this admission on 11/09/15 - Pharmacy Services will continue to follow and make recommendations. Please page clinical pharmacist [phone]) or call central inpatient pharmacy ([phone]) with questions. Subjective/Objective: Allergies: Amoxicillin; Benadrilina; and Parlodel Diet: Reports changes to diet: No Patient is receiving continuous tube feedings: No Bruising or bleeding report: None noted Labs: Hemoglobin/hematocrit/platelets: 10.7/36.3/272 (11/13/15) ALBUMIN, PLASMA (LAB) (g/dL) Date Value 11/13/2015 3.2* CREATININE PLASMA (LAB) (mg/dL) Date Value 11/14/2015 0.88 INR (INR) Date Value Dose 11/14/2015 1.46 12.5 mg ordered 11/13/2015 1.34 12.5 mg 11/12/2015 1.25 10 mg 11/11/2015 1.23 10 mg 11/10/2015 1.13 7.5 mg 11/09/2015 1.2 7.5 mg 11/08/2015 1.20 5 mg 11/07/2015 1.14 5 mg Current medications: acetaminophen (TYLENOL) tablet 1,000 mg, 1,000 mg, oral, TID ALPRAZolam (XANAX) tablet 1 mg, 1 mg, oral, TID PRN ascorbic acid tablet 500 mg, 500 mg, oral, DAILY bisacodyl (DULCOLAX) suppository 10 mg, 10 mg, rectal, DAILY PRN dextrose 50 % in water IV 25 mL, 25 mL, intravenous, PRN ergocalciferol (VITAMIN D2, DRISDOL) capsule 50,000 Units, 50,000 Units, oral, Once per day on Thu FLUoxetine (PROZAC) capsule 60 mg, 60 mg, oral, DAILY furosemide (LASIX) IV 100 mg, 100 mg, intravenous, BID ( and ) gabapentin (NEURONTIN) capsule 300 mg, 300 mg, oral, QID glucagon (GLUCAGEN) injection 1 mg, 1 mg, intramuscular, PRN glucose chewable tablet 16 g, 16 g, oral, PRN heparin bolus from continuous infusion 10,000 Units, 46.6 Units/kg, intravenous, NEEDED (BOLUS) heparin bolus from continuous infusion 5,000 Units, 23.3 Units/kg, intravenous, NEEDED ( BOLUS) heparin in D5W IV infusion 25,000 units/250 mL, 1-4,000 Units/hr, intravenous, CONTINUOUS insulin lispro (HUMALOG) injection, , subcutaneous, QID insulin NPH (HUMULIN N) injection 75 Units, 75 Units, subcutaneous, BEFORE BREAKFAST iron sucrose (VENOFER) 200 mg in NaCl 0.9 % IV, 200 mg, intravenous, DAILY magnesium oxide (MAG-OX) tablet 400 mg, 400 mg, oral, DAILY menthol-zinc oxide (CALAZIME) topical paste, , topical, TID PRN nystatin (MYCOSTATIN) powder, , topical, BID OLANZapine (ZYPREXA) tablet 30 mg, 30 mg, oral, HS oxyCODONE (immediate release) (ROXICODONE) tablet 5-10 mg, 5-10 mg, oral, Q4H PRN polyethylene glycol (MIRALAX) powder 17 g, 17 g, oral, DAILY polyethylene glycol (MIRALAX) powder 34 g, 34 g, oral, TID PRN senna-docusate (SENOKOT S) 8.6-50 mg 2 tablet, 2 tablet, oral, BID thyroid tablet 30 mg, 30 mg, oral, DAILY topiramate (TOPAMAX) tablet 200 mg, 200 mg, oral, BID warfarin (COUMADIN) tablet 12.5 mg, 12.5 mg, oral, QPM Patient reports missing warfarin doses: N/A Current medication interactions: Yes - fluoxetine, naproxen may increase the anticoagulant effect of warfarin. Recommend avoiding NSAIDs while on warfarin. Events affecting anticoagulation (vitamin K, FFP, PRBC administration): None Other anticoagulants/anti-platelet agents: Yes - heparin infusion Home warfarin regimen: TBD Thank you, Skye Goyal PharmD, BCPS ERSkye Goyal Phar mD - 11/13/2015 8:52 AM PDT Pharmacy Services: Warfarin Anticoagulation Note Assessment/Plan: Elzbieta Cristina, a 40 year old female newly started on 11/07/15 on treatment with warfarin for deep venous thrombosis with an INR target of 2-3 - INR is below the therapeutic range at 1.34, increased a little from yesterday's INR of 1. 25. - Warfarin: Increase warfarin dose tonight to 12.5 mg by mouth @ 2100 - Therapeutic Bridging: heparin infusion. Last anti-Xa level drawn at 0544 on 11/13/15 was t herapeutic at 0.6 units/mL - Next INR ordered for tomorrow AM - Monitor for signs and symptoms of bleeding - Patient Education: Patient education/educational assessment documented in the patient edu cation activity this admission on 11/09/15 - Pharmacy Services will continue to follow and make recommendations. Please page clinical pharmacist [phone]) or call central inpatient pharmacy ([phone]) with questions. Subjective/Objective: Allergies: Amoxicillin; Benadrilina; and Parlodel Diet: Reports changes to diet: No Patient is receiving continuous tube feedings: No Bruising or bleeding report: None noted Labs: Hemoglobin/hematocrit/platelets: 10.7/36.3/272 (11/13/15) ALBUMIN, PLASMA (LAB) (g/dL) Date Value 11/06/2015 3.0* CREATININE PLASMA (LAB) (mg/dL) Date Value 11/13/2015 0.88 INR (INR) Date Value Dose 11/13/2015 1.34 12.5 mg ordered 11/12/2015 1.25 10 mg 11/11/2015 1.23 10 mg 11/10/2015 1.13 7.5 mg 11/09/2015 1.2 7.5 mg 11/08/2015 1.20 5 mg 11/07/2015 1.14 5 mg Current medications: acetaminophen (TYLENOL) tablet 1,000 mg, 1,000 mg, oral, TID acetaminophen (TYLENOL) tablet 650 mg, 650 mg, oral, ONCE ALPRAZolam (XANAX) tablet 1 mg, 1 mg, oral, TID PRN ascorbic acid tablet 500 mg, 500 mg, oral, DAILY bisacodyl (DULCOLAX) suppository 10 mg, 10 mg, rectal, DAILY PRN dextrose 50 % in water IV 25 mL, 25 mL, intravenous, PRN ergocalciferol (VITAMIN D2, DRISDOL) capsule 50,000 Units, 50,000 Units, oral, Once per day on Thu ferrous sulfate tablet 65 mg elemental, 325 mg total salt, oral, DAILY FLUoxetine (PROZAC) capsule 60 mg, 60 mg, oral, DAILY furosemide (LASIX) IV 100 mg, 100 mg, intravenous, BID ( and ) gabapentin (NEURONTIN) capsule 300 mg, 300 mg, oral, QID glucagon (GLUCAGEN) injection 1 mg, 1 mg, intramuscular, PRN glucose chewable tablet 16 g, 16 g, oral, PRN heparin bolus from continuous infusion 10,000 Units, 46.6 Units/kg, intravenous, NEEDED (BOLUS) heparin bolus from continuous infusion 5,000 Units, 23.3 Units/kg, intravenous, NEEDED ( BOLUS) heparin in D5W IV infusion 25,000 units/250 mL, 1-4,000 Units/hr, intravenous, CONTINUOUS insulin lispro (HUMALOG) injection, , subcutaneous, QID insulin NPH (HUMULIN N) injection 75 Units, 75 Units, subcutaneous, BEFORE BREAKFAST magnesium oxide (MAG-OX) tablet 400 mg, 400 mg, oral, DAILY menthol-zinc oxide (CALAZIME) topical paste, , topical, TID PRN naproxen (NAPROSYN) tablet 500 mg, 500 mg, oral, BID PRN nystatin (MYCOSTATIN) powder, , topical, BID OLANZapine (ZYPREXA) tablet 30 mg, 30 mg, oral, HS oxyCODONE (immediate release) (ROXICODONE) tablet 5-10 mg, 5-10 mg, oral, Q4H PRN polyethylene glycol (MIRALAX) powder 17 g, 17 g, oral, DAILY polyethylene glycol (MIRALAX) powder 34 g, 34 g, oral, TID PRN potassium chloride SR (K-DUR) tablet 60 mEq, 60 mEq, oral, ONCE senna-docusate (SENOKOT S) 8.6-50 mg 2 tablet, 2 tablet, oral, BID thyroid tablet 30 mg, 30 mg, oral, DAILY topiramate (TOPAMAX) tablet 200 mg, 200 mg, oral, BID warfarin (COUMADIN) tablet 10 mg, 10 mg, oral, QPM Patient reports missing warfarin doses: N/A Current medication interactions: Yes - fluoxetine, naproxen may increase the anticoagulant effect of warfarin. Recommend avoiding NSAIDs while on warfarin. Events affecting anticoagulation (vitamin K, FFP, PRBC administration): None Other anticoagulants/anti-platelet agents: Yes - heparin infusion Home warfarin regimen: TBD Thank you, Skye Goyal PharmD, BCPS ostSkye andrade Phar mD - 11/12/2015 7:38 AM PDT Pharmacy Services: Warfarin Anticoagulation Note Assessment/Plan: Elzbieta Cristina, a 40 year old female newly started on 11/07/15 on treatment with warfarin for deep venous thrombosis with an INR target of 2-3 - INR is below the therapeutic range at 1.25. INR has barely increased from baseline after 5 doses of warfarin. Will repeat 10 mg dose tonight. - Warfarin: Warfarin 10 mg by mouth tonight @ 2100 - Therapeutic Bridging: heparin infusion. Last anti-Xa level drawn at 0413 on 11/12/15 was t herapeutic at 0.48 units/mL - Next INR ordered for tomorrow AM - Monitor for signs and symptoms of bleeding - Patient Education: Patient education/educational assessment documented in the patient edu cation activity this admission on 11/09/15 - Pharmacy Services will continue to follow and make recommendations. Please page clinical pharmacist [phone]) or call central inpatient pharmacy ([phone]) with questions. Subjective/Objective: Allergies: Amoxicillin; Benadrilina; and Parlodel Diet: Reports changes to diet: No Patient is receiving continuous tube feedings: No Bruising or bleeding report: None noted Labs: Hemoglobin/hematocrit/platelets: 9.3/31.6/243 (11/08/15) ALBUMIN, PLASMA (LAB) (g/dL) Date Value 11/06/2015 3.0* CREATININE PLASMA (LAB) (mg/dL) Date Value 11/12/2015 0.85 INR (INR) Date Value Dose 11/12/2015 1.25 10 mg ordered 11/11/2015 1.23 10 mg 11/10/2015 1.13 7.5 mg 11/09/2015 1.2 7.5 mg 11/08/2015 1.20 5 mg 11/07/2015 1.14 5 mg Current medications: acetaminophen (TYLENOL) tablet 1,000 mg, 1,000 mg, oral, TID ALPRAZolam (XANAX) tablet 1 mg, 1 mg, oral, TID PRN ascorbic acid tablet 500 mg, 500 mg, oral, DAILY bisacodyl (DULCOLAX) suppository 10 mg, 10 mg, rectal, DAILY PRN dextrose 50 % in water IV 25 mL, 25 mL, intravenous, PRN ergocalciferol (VITAMIN D2, DRISDOL) capsule 50,000 Units, 50,000 Units, oral, Once per day on Thu ferrous sulfate tablet 65 mg elemental, 325 mg total salt, oral, DAILY FLUoxetine (PROZAC) capsule 60 mg, 60 mg, oral, DAILY furosemide (LASIX) IV 100 mg, 100 mg, intravenous, BID ( and ) gabapentin (NEURONTIN) capsule 300 mg, 300 mg, oral, QID glucagon (GLUCAGEN) injection 1 mg, 1 mg, intramuscular, PRN glucose chewable tablet 16 g, 16 g, oral, PRN heparin bolus from continuous infusion 10,000 Units, 46.6 Units/kg, intravenous, NEEDED (BOLUS) heparin bolus from continuous infusion 5,000 Units, 23.3 Units/kg, intravenous, NEEDED ( BOLUS) heparin in D5W IV infusion 25,000 units/250 mL, 1-4,000 Units/hr, intravenous, CONTINUOUS insulin lispro (HUMALOG) injection, , subcutaneous, QID insulin NPH (HUMULIN N) injection 75 Units, 75 Units, subcutaneous, BEFORE BREAKFAST magnesium oxide (MAG-OX) tablet 400 mg, 400 mg, oral, DAILY menthol-zinc oxide (CALAZIME) topical paste, , topical, TID PRN naproxen (NAPROSYN) tablet 500 mg, 500 mg, oral, BID PRN nystatin (MYCOSTATIN) powder, , topical, BID OLANZapine (ZYPREXA) tablet 30 mg, 30 mg, oral, HS oxyCODONE (immediate release) (ROXICODONE) tablet 5-10 mg, 5-10 mg, oral, Q4H PRN polyethylene glycol (MIRALAX) powder 17 g, 17 g, oral, DAILY polyethylene glycol (MIRALAX) powder 34 g, 34 g, oral, TID PRN senna-docusate (SENOKOT S) 8.6-50 mg 2 tablet, 2 tablet, oral, BID thyroid tablet 30 mg, 30 mg, oral, DAILY topiramate (TOPAMAX) tablet 200 mg, 200 mg, oral, BID warfarin (COUMADIN) tablet 10 mg, 10 mg, oral, QPM Patient reports missing warfarin doses: N/A Current medication interactions: Yes - fluoxetine may increase the anticoagulant effect of warfarin Events affecting anticoagulation (vitamin K, FFP, PRBC administration): None Other anticoagulants/anti-platelet agents: Yes - heparin infusion Home warfarin regimen: TBD Thank you, Skye Goyal PharmD, BCPS Edson Chao, Ph armD - 11/11/2015 9:06 AM PDT Pharmacy Services: Warfarin Anticoagulation Note Assessment/Plan: - Indication: deep venous thrombosis - INR target: 2-3 - INR is below the therapeutic range at 1.23 - Warfarin: Increase to warfarin 10 mg by mouth tonight @ 2100. Will trend INR tomorrow - Therapeutic Bridging: heparin infusion, therapeutic at 3,250 units/hr Monitoring: - Next INR ordered for tomorrow AM - Monitor for signs and symptoms of bleeding - Patient Education: Patient education/educational assessment documented in the patient edu cation activity this admission on 11/09/15 - Pharmacy Services will continue to follow and make recommendations. Please page clinical pharmacist [phone]) or call central inpatient pharmacy ([phone]) with questions. Subjective/Objective: Allergies: Amoxicillin; Benadrilina; and Parlodel Diet: Reports changes to diet: No Patient is receiving continuous tube feedings: No Bruising or bleeding report: None noted Labs: Hemoglobin/hematocrit/platelets: 9.3/31.6/243 (11/08/2015) ALBUMIN, PLASMA (LAB) (g/dL) Date Value 11/06/2015 3.0* CREATININE PLASMA (LAB) (mg/dL) Date Value 11/11/2015 0.84 INR (INR) Date Value Dose 11/11/2015 1.23 10 mg ordered 11/10/2015 1.13 7.5 mg 11/09/2015 1.2 7.5 mg 11/08/2015 1.20 5 mg 11/07/2015 1.14 5 mg Current medications: acetaminophen (TYLENOL) tablet 1,000 mg, 1,000 mg, oral, TID ALPRAZolam (XANAX) tablet 1 mg, 1 mg, oral, TID PRN ascorbic acid tablet 500 mg, 500 mg, oral, DAILY bisacodyl (DULCOLAX) suppository 10 mg, 10 mg, rectal, DAILY PRN dextrose 50 % in water IV 25 mL, 25 mL, intravenous, PRN ergocalciferol (VITAMIN D2, DRISDOL) capsule 50,000 Units, 50,000 Units, oral, Once per day thu ferrous sulfate tablet 65 mg elemental, 325 mg total salt, oral, DAILY FLUoxetine (PROZAC) capsule 60 mg, 60 mg, oral, DAILY furosemide (LASIX) injection 60 mg, 60 mg, intravenous, BID ( and ) gabapentin (NEURONTIN) capsule 300 mg, 300 mg, oral, QID glucagon (GLUCAGEN) injection 1 mg, 1 mg, intramuscular, PRN glucose chewable tablet 16 g, 16 g, oral, PRN heparin bolus from continuous infusion 10,000 Units, 46.6 Units/kg, intravenous, NEEDED (BOLUS) heparin bolus from continuous infusion 5,000 Units, 23.3 Units/kg, intravenous, NEEDED ( BOLUS) heparin in D5W IV infusion 25,000 units/250 mL, 1-2,500 Units/hr, intravenous, CONTINUOUS insulin lispro (HUMALOG) injection, , subcutaneous, QID insulin NPH (HUMULIN N) injection 75 Units, 75 Units, subcutaneous, BEFORE BREAKFAST magnesium oxide (MAG-OX) tablet 400 mg, 400 mg, oral, DAILY naproxen (NAPROSYN) tablet 500 mg, 500 mg, oral, BID PRN nystatin (MYCOSTATIN) powder, , topical, BID OLANZapine (ZYPREXA) tablet 30 mg, 30 mg, oral, HS oxyCODONE (immediate release) (ROXICODONE) tablet 5-10 mg, 5-10 mg, oral, Q4H PRN polyethylene glycol (MIRALAX) powder 17 g, 17 g, oral, DAILY polyethylene glycol (MIRALAX) powder 34 g, 34 g, oral, TID PRN senna-docusate (SENOKOT S) 8.6-50 mg 2 tablet, 2 tablet, oral, BID thyroid tablet 30 mg, 30 mg, oral, DAILY topiramate (TOPAMAX) tablet 200 mg, 200 mg, oral, BID warfarin (COUMADIN) tablet 10 mg, 10 mg, oral, QPM Patient reports missing warfarin doses: N/A Current medication interactions: Yes - fluoxetine and thyroid tablet may increase the antic oagulant effect of warfarin Events affecting anticoagulation (vitamin K, FFP, PRBC administration): None Other anticoagulants/anti-platelet agents: Yes - heparin infusion Home warfarin regimen: TBD Assessment/Plan: Added to top of note Johanna Trimble PharmD PGY-1 Clinical [place] [employer] Pager #[phone] Edson Chao PharmD - 11/10/2015 6:28 AM PDT . Pharmacy Services: Warfarin Anticoagulation Note Assessment/Plan: - Indication: deep venous thrombosis - INR target: 2-3 - INR is below the therapeutic range. - Warfarin: Continue warfarin 7.5 mg by mouth tonight @ 2100, as dose was increased last ni ght and will not see effect until tomorrow. Will trend INR and consider increasing dose michelle rrow. - Therapeutic Bridging: heparin infusion - Next INR ordered for tomorrow AM - Monitor for signs and symptoms of bleeding - Patient Education: Patient education/educational assessment documented in the patient edu cation activity this admission on 11/09/15 - Pharmacy Services will continue to follow and make recommendations. Please page clinical pharmacist [phone]) or call central inpatient pharmacy ([phone]) with questions. Subjective/Objective: Allergies: Amoxicillin; Benadrilina; and Parlodel Diet: Reports changes to diet: No Patient is receiving continuous tube feedings: No Bruising or bleeding report: None noted Labs: Hemoglobin/hematocrit/platelets: 9.3/31.6/243 (11/08/15) ALBUMIN, PLASMA (LAB) (g/dL) Date Value 11/06/2015 3.0* CREATININE PLASMA (LAB) (mg/dL) Date Value 11/10/2015 0.83 INR (INR) Date Value Dose 11/10/2015 1.13 7.5 mg ordered 11/09/2015 1.2 7.5 mg 11/08/2015 1.20 5 mg 11/07/2015 1.14 5 mg Current medications: acetaminophen (TYLENOL) tablet 1,000 mg, 1,000 mg, oral, TID ALPRAZolam (XANAX) tablet 1 mg, 1 mg, oral, TID PRN ascorbic acid tablet 500 mg, 500 mg, oral, DAILY bisacodyl (DULCOLAX) suppository 10 mg, 10 mg, rectal, DAILY PRN dextrose 50 % in water IV 25 mL, 25 mL, intravenous, PRN ergocalciferol (VITAMIN D2, DRISDOL) capsule 50,000 Units, 50,000 Units, oral, Once per day on Thu FLUoxetine (PROZAC) capsule 60 mg, 60 mg, oral, DAILY furosemide (LASIX) injection 60 mg, 60 mg, intravenous, BID ( and ) gabapentin (NEURONTIN) capsule 300 mg, 300 mg, oral, QID glucagon (GLUCAGEN) injection 1 mg, 1 mg, intramuscular, PRN glucose chewable tablet 16 g, 16 g, oral, PRN heparin bolus from continuous infusion 10,000 Units, 46.6 Units/kg, intravenous, NEEDED (BOLUS) heparin bolus from continuous infusion 5,000 Units, 23.3 Units/kg, intravenous, NEEDED ( BOLUS) heparin in D5W IV infusion 25,000 units/250 mL, 1-2,500 Units/hr, intravenous, CONTINUOUS insulin lispro (HUMALOG) injection, , subcutaneous, QID insulin NPH (HUMULIN N) injection 75 Units, 75 Units, subcutaneous, BEFORE BREAKFAST magnesium oxide (MAG-OX) tablet 400 mg, 400 mg, oral, DAILY naproxen (NAPROSYN) tablet 500 mg, 500 mg, oral, BID PRN nystatin (MYCOSTATIN) powder, , topical, BID OLANZapine (ZYPREXA) tablet 30 mg, 30 mg, oral, HS oxyCODONE (immediate release) (ROXICODONE) tablet 5-10 mg, 5-10 mg, oral, Q4H PRN polyethylene glycol (MIRALAX) powder 17 g, 17 g, oral, DAILY polyethylene glycol (MIRALAX) powder 34 g, 34 g, oral, TID PRN senna-docusate (SENOKOT S) 8.6-50 mg 2 tablet, 2 tablet, oral, BID thyroid tablet 30 mg, 30 mg, oral, DAILY topiramate (TOPAMAX) tablet 200 mg, 200 mg, oral, BID warfarin (COUMADIN) tablet 7.5 mg, 7.5 mg, oral, QPM Patient reports missing warfarin doses: N/A Current medication interactions: Yes - fluoxetine and thyroid tablet may increase the antic oagulant effect of warfarin Events affecting anticoagulation (vitamin K, FFP, PRBC administration): None Other anticoagulants/anti-platelet agents: Yes - heparin infusion Home warfarin regimen: TBD Assessment/Plan: Added to top of note Johanna Trimble PharmD PGY-1 Clinical [employer] Pager #[phone] oSkye olson, Ph armD - 11/09/2015 12:21 PM PDT Pharmacy Services: Warfarin Anticoagulation Note Assessment/Plan: Elzbieta Cristina, a 40 year old female newly started on 11/07/15 on treatment with warfarin for deep venous thrombosis with an INR target of 2-3 - INR is below the therapeutic range at 1.2. - Warfarin: Increase warfarin dose tonight to 7.5 mg by mouth @ 2100 - Therapeutic Bridging: Briding with heparin infusion. Last aPTT drawn at 0619 at 11/09/15 w as therapeutic at 0.45 units/mL (Goal 0.35-0.7 units/mL) - Next INR ordered for tomorrow AM - Monitor for signs and symptoms of bleeding - Patient Education: Patient education/educational assessment documented in the patient edu cation activity this admission on 11/09/15 - Pharmacy Services will continue to follow and make recommendations. Please page clinical pharmacist (#[phone]) or call central inpatient pharmacy ([phone]) with questions. Subjective/Objective: Allergies: Amoxicillin; Benadrilina; and Parlodel Diet: Reports changes to diet: No Patient is receiving continuous tube feedings: No Bruising or bleeding report: None noted Labs: Hemoglobin/hematocrit/platelets: 9.3/31.6/243 (11/08/15) ALBUMIN, PLASMA (LAB) (g/dL) Date Value 11/06/2015 3.0* CREATININE PLASMA (LAB) (mg/dL) Date Value 11/09/2015 0.84 INR (INR) Date Value Dose 11/09/2015 1.2 7.5 mg ordered 11/08/2015 1.20 5 mg 11/07/2015 1.14 5 mg Current medications: acetaminophen (TYLENOL) tablet 1,000 mg, 1,000 mg, oral, TID ALPRAZolam (XANAX) tablet 1 mg, 1 mg, oral, TID PRN ascorbic acid tablet 500 mg, 500 mg, oral, DAILY bisacodyl (DULCOLAX) suppository 10 mg, 10 mg, rectal, DAILY PRN dextrose 50 % in water IV 25 mL, 25 mL, intravenous, PRN ergocalciferol (VITAMIN D2, DRISDOL) capsule 50,000 Units, 50,000 Units, oral, Once per day on Thu FLUoxetine (PROZAC) capsule 60 mg, 60 mg, oral, DAILY furosemide (LASIX) injection 60 mg, 60 mg, intravenous, BID () gabapentin (NEURONTIN) capsule 300 mg, 300 mg, oral, QID glucagon (GLUCAGEN) injection 1 mg, 1 mg, intramuscular, PRN glucose chewable tablet 16 g, 16 g, oral, PRN heparin bolus from continuous infusion 10,000 Units, 46.6 Units/kg, intravenous, NEEDED (BOLUS) heparin bolus from continuous infusion 5,000 Units, 23.3 Units/kg, intravenous, NEEDED ( BOLUS) heparin in D5W IV infusion 25,000 units/250 mL, 1-2,500 Units/hr, intravenous, CONTINUOUS insulin lispro (HUMALOG) injection, , subcutaneous, QID insulin NPH (HUMULIN N) injection 75 Units, 75 Units, subcutaneous, BEFORE BREAKFAST magnesium oxide (MAG-OX) tablet 400 mg, 400 mg, oral, DAILY nystatin (MYCOSTATIN) powder, , topical, BID OLANZapine (ZYPREXA) tablet 30 mg, 30 mg, oral, HS oxyCODONE (immediate release) (ROXICODONE) tablet 5-10 mg, 5-10 mg, oral, Q4H PRN polyethylene glycol (MIRALAX) powder 17 g, 17 g, oral, DAILY polyethylene glycol (MIRALAX) powder 34 g, 34 g, oral, TID PRN potassium chloride SR (K-DUR) tablet 40 mEq, 40 mEq, oral, ONCE senna-docusate (SENOKOT S) 8.6-50 mg 2 tablet, 2 tablet, oral, BID thyroid tablet 30 mg, 30 mg, oral, DAILY topiramate (TOPAMAX) tablet 200 mg, 200 mg, oral, BID warfarin (COUMADIN) tablet 7.5 mg, 7.5 mg, oral, QPM Patient reports missing warfarin doses: N/A Current medication interactions: Yes - fluoxetine may increase the anticoagulant effect of warfarin Events affecting anticoagulation (vitamin K, FFP, PRBC administration): None Other anticoagulants/anti-platelet agents: Yes - heparin infusion Home warfarin regimen: TBD Thank you, Skye Goyal PharmD, BCPS gmichelle, Kallie - 2015 11:47 AM PDT Pharmacy Services: Student Admission Medication Reconciliation I have reviewed the patient s home medication list and found it to be accurate with the f ollowing exceptions: Medications Omitted from Prior to Admission list: Medication Dose Route Frequency Source of Information Note Eletriptan 20 mg Oral 20 mg as needed for migraine. May repeat in 2 hours if needed (max of 2 doses per day) Patient Original Rx: Last fill: 07/22/15 Patient mentions not taking often, only as needed. Still has some left SF plus cream 1.1% Oral Mullins 2 - 3 times per day. Do not eat, drink or rinse, don't swall ow Patient/pharmacy Original Rx: Last fill: 10/16/15 Dispense: 51 Changes to Dose/Sig/Route of Medications on Prior to Admission list: Medication Dose Route Frequency Source of Information Reason change was made Note Alprazolam 1 mg Oral 1 tablet three times daily as needed for anxiety Patient Patient sta maxine using it once daily as needed Fluoxetine 20 mg Oral 60 mg once daily in the evening Patient/pharmacy Corrected tablet s trength Hydrocodone / acetaminophen 10-325 mg Oral 1 tablet every 4 hours as needed Patient/pharma cy Corrected dosing schedule Patient takes 1 tablet every 4 - 6 hours Insulin Novolin 70/30 100 unit / mL SubQ 100 units subQ at bedtime Patient/pharmacy Correct ed insulin name Documentation record had humulin 70/30 previously. Changed insulin name Olanzapine 15 mg Oral 30 mg once daily at bedtime Patient/pharmacy Corrected tablet stren gth Ranitidine 150 mg Oral 1 tablet once daily as needed Patient/pharmacy Corrected tablet s valerio Original Rx SI tablet twice daily Last fill: 09/18/15 Dispense: 60 Topiramate 200 mg Oral 1 tablet twice daily Patient/pharmacy Corrected tablet strength Or iginal Rx SI tablet twice daily Last fill: 10/31/15 Dispense: 60 Torsemide 20 mg Oral 40 mg twice daily Patient/pharmacy Corrected tablet strength Additional Information: Clarified medication history through patient interview and confirmed by pharmacy records. S ee above for documentation of clarification. Patient was unsure of her insulin name (Novolin vs Humuilin). She was sure that it was an insulin having 70/30 (states the name usually changes). Pharmacy record has Novolin 70/30 When asked about the indication for olanzapine, based on a prior prescription from pharmacy records, she stated it was for her bi-polar, not restless leg syndrome. She was unsure why it was written for restless leg syndrome. Patient mentioned mainly filling prescriptions at [facility] and her pain prescriptions at [facility]. Called [facility] to verify prescription fill history, spoke to jc potter. Mention [facility] has only filled eletriptan on 07/22/15. There was no fill history of alprazolam or potass ium filled at [facility]. Tried to contact [facility] to verify medication fill history. Was not able to reach the [facility] dept (kept getting send to marking machine operator who is unavailable). Contacted home store to be tr ansferred to pharmacy department and resulted in the same marking machine operator who is unavailable. Faxe d a med history request around 2 pm on 11/08/15 (have not heard back yet). Patient was alert and oriented. She was aware of most of her medication strength and knew the direction of all of her medications (spoke with confidence in the direction). When aske d if the strengths listed in the pharmacy records are correct for the medications she did no t remember, she respond back saying the medication strength listed are correct. Patient mention within a month, she may have missed, at most, up to a total of 1 week's wor th of medications (she mentioned that the medication she missed varies. The medication she misses to take is not the same each time). Patient reports that is why she has a pill box t o help her remember to take the medications. Allergies: -- Amoxicillin Patient reported rash as a reaction -- Benadrilina [Diphenhydramine Hcl] -- Hives -- Parlodel [Bromocriptine] -- Unknown -- Blood clots Elzbieta Cristina is a 40 year old female admitted to [facility] for DVT and heart failure exacerbation Pharmacy Preferences: [facility] [id number] [place] [address] Hours: 9am-7pm Mon-fri / 9am-6pm Sat / Closed Sun E-Prescribing: Yes E-Prescribing Control Substances: Yes [facility] #[id number] [address] [place] [address] Hours: 9am-7pm Mon-fri / 9am-6pm Sat / 10am-5pm Sun E-Prescribing: Yes E-Prescribing Control Substances: Yes Source of Medication Information: Patient and Pharmacy Reliability: Reliable The above changes will be reviewed with the supervising pharmacist. The patient s prior t o admission medication list will be updated accordingly. A total of 35 minutes were spent on this activity. All questions concerning medications, in cluding OTC and herbal products, were addressed. For questions regarding this information contact Kallie Heard PharmD Candidate 2016 Media Specialist Pager # [phone] Associated attestation - Maegan Mackay PharmD - 11/08/2015 3:32 PM PDTI have review ed and agree with the pharmacy billing adjudicator's documentation and have documented any additions or exceptions. Maegan Mackay PharmD, [facility] Clinical Pharmacist, Medicine Pager: [phone] Skye Goyal PharmD - 11/08/2015 7:47 AM PDTFormatting of this note might be different f rom the original. Pharmacy Services: Transition from heparin to warfarin anticoagulation note Assessment/Plan: Elzbieta Cristina, a 40 y.o. female newly started on 11/07/15 on treatment with warfarin for deep venous thrombosis with an INR target of 2-3 being bridged with heparin infusion at 265 0 units/hr dosed with the venous disease (& non-ACS cardiac indications) protocol with a goa l heparin level of 0.35 - 0.7 units/mL. - Last heparin level drawn at 0041 today was subtherapeutic at 0.16 units/mL, RN has adjust ed infusion appropriately per protocol, next heparin level will be drawn ~ 0800 - INR is below the therapeutic range at 1.2, as expected after one dose of warfarin. - Warfarin: Warfarin 5 mg by mouth tonight @ 2100 - Bridging until therapeutic INR: continue heparin drip until INR therapeutic for 2 consecu tive days Monitoring - Next INR ordered for tomorrow AM - Continue to check q6h heparin level after every rate change, if therapeutic heparin level for two consecutive draws at same infusion rate may decrease monitoring frequency to every AM - Monitor for signs of heparin induced thrombocytopenia (plt < 100k or decrease > 50% from baseline, new DVT after heparin initiation), platelet count ordered daily with AM labs - Monitor for signs and symptoms of bleeding - Patient Education: Warfarin education will be completed prior to discharge - Pharmacy Services will continue to follow and make recommendations. Please page clinical pharmacist [phone]) or call central inpatient pharmacy ([phone]) with questions Subjective/Objective: Allergies: Amoxicillin; Benadrilina; and Parlodel Most recent weight: Weight: 209.426 kg (461 lb 11.2 oz) (11/07/15 2332) Diet: Reports changes to diet: No Patient is receiving continuous tube feedings: No History of HIT/HAT/positive antibodies: No History of coagulopathy (antiphospholipid antibody, lupus inhibitor, Factor V Leiden): No Bruising or bleeding report: None noted Labs: Hemoglobin/hematocrit: 9.3/31.6/243 (11/08/15) ALBUMIN, PLASMA (LAB) (g/dL) Date Value 11/06/2015 3.0* CREATININE PLASMA (LAB) (mg/dL) Date Value 11/08/2015 0.83 HEPARIN, STD LMW (U/mL) Date Value 11/08/2015 0.16 11/07/2015 0.29 11/07/2015 <0.10 INR (INR) Date Value Dose 11/08/2015 1.20 5 mg ordered 11/07/2015 1.14 5 mg PLATELET COUNT (K/cu mm) Date Value 11/08/2015 243 11/07/2015 255 11/06/2015 307 Current medications: ALPRAZolam (XANAX) tablet 1 mg, 1 mg, oral, TID PRN ascorbic acid tablet 500 mg, 500 mg, oral, DAILY bisacodyl (DULCOLAX) suppository 10 mg, 10 mg, rectal, DAILY PRN dextrose 50 % in water IV 25 mL, 25 mL, intravenous, PRN ergocalciferol (VITAMIN D2, DRISDOL) capsule 50,000 Units, 50,000 Units, oral, Once per day on Thu FLUoxetine (PROZAC) capsule 60 mg, 60 mg, oral, DAILY furosemide (LASIX) injection 60 mg, 60 mg, intravenous, BID ( and ) gabapentin (NEURONTIN) capsule 300 mg, 300 mg, oral, QID glucagon (GLUCAGEN) injection 1 mg, 1 mg, intramuscular, PRN glucose chewable tablet 16 g, 16 g, oral, PRN heparin bolus from continuous infusion 10,000 Units, 46.6 Units/kg, intravenous, NEEDED (BOLUS) heparin bolus from continuous infusion 5,000 Units, 23.3 Units/kg, intravenous, NEEDED ( BOLUS) heparin in D5W IV infusion 25,000 units/250 mL, 1-2,500 Units/hr, intravenous, CONTINUOUS insulin lispro (HUMALOG) injection, , subcutaneous, QID insulin NPH (HUMULIN N) injection 75 Units, 75 Units, subcutaneous, BEFORE BREAKFAST magnesium oxide (MAG-OX) tablet 400 mg, 400 mg, oral, DAILY nystatin (MYCOSTATIN) powder, , topical, BID OLANZapine (ZYPREXA) tablet 30 mg, 30 mg, oral, HS oxyCODONE (immediate release) (ROXICODONE) tablet 5-10 mg, 5-10 mg, oral, Q4H PRN polyethylene glycol (MIRALAX) powder 17 g, 17 g, oral, DAILY polyethylene glycol (MIRALAX) powder 34 g, 34 g, oral, TID PRN senna-docusate (SENOKOT S) 8.6-50 mg 2 tablet, 2 tablet, oral, BID thyroid tablet 30 mg, 30 mg, oral, DAILY topiramate (TOPAMAX) tablet 200 mg, 200 mg, oral, BID warfarin (COUMADIN) tablet 5 mg, 5 mg, oral, QPM Patient reports missing warfarin doses: N/A Current medication interactions: Yes - fluoxetine may increase the anticoagulant effect of warfarin Events effecting anticoagulation (vitamin K, FFP, PRBC administration): None Other anticoagulants/anti-platelet agents: Yes - heparin infusion Home warfarin regimen: TBD Thank you, Skye Goyal PharmD, BCPS ah, Jazmine San - 11/07/2015 11:22 AM PDT Pharmacy Services: Warfarin Initial Anticoagulation Note Referring provider: Carmelina Tucker Assessment/Plan Elzbieta Cristina, a 40 year old female newly started on 11/07/15 on 3 months treatment with warfarin for deep venous thrombosis with an INR target of 2-3 - INR is below the therapeutic range. - Warfarin: Initiate warfarin 5 mg by mouth tonight @ 2100 - Therapeutic Bridging: heparin gtt per treatment team - Next INR ordered for tomorrow am - Monitor for signs and symptoms of bleeding - Patient Education: upon discharge - Pharmacy Services will continue to follow and make recommendations. Please page clinical pharmacist [phone]) or call central inpatient pharmacy ([phone]) with questions Subjective/Objective: Elzbieta Cristina, a 40 year old female with hx of DMII, HTN, hypothyroidism, and Morbid Obe sity who presente to the ED by [facility] for dyspnea and weight gain. Allergies: Amoxicillin; Benadrilina; and Parlodel Most recent weight: 214.6 kg Diet: Reports changes to diet: No Patient is receiving continuous tube feedings: No Alcohol usage: No Tobacco usage: Yes - former smoker Bruising or bleeding report: None noted Labs: Hemoglobin/hematocrit/platelets: 04/25.1/255 ALBUMIN, PLASMA (LAB) (g/dL) Date Value 11/06/2015 3.0* CREATININE PLASMA (LAB) (mg/dL) Date Value 11/07/2015 0.91 Current medications: ALPRAZolam (XANAX) tablet 1 mg, 1 mg, oral, TID PRN ascorbic acid tablet 500 mg, 500 mg, oral, DAILY dextrose 50 % in water IV 25 mL, 25 mL, intravenous, PRN [START ON 11/08/2015] ergocalciferol (VITAMIN D2, DRISDOL) capsule 50,000 Units, 50,000 Unit s, oral, Once per day on Thu FLUoxetine (PROZAC) capsule 60 mg, 60 mg, oral, DAILY gabapentin (NEURONTIN) capsule 300 mg, 300 mg, oral, QID glucagon (GLUCAGEN) injection 1 mg, 1 mg, intramuscular, PRN glucose chewable tablet 16 g, 16 g, oral, PRN heparin bolus from continuous infusion 10,000 Units, 46.6 Units/kg, intravenous, ONCE heparin bolus from continuous infusion 10,000 Units, 46.6 Units/kg, intravenous, NEEDED (BOLUS) heparin bolus from continuous infusion 5,000 Units, 23.3 Units/kg, intravenous, NEEDED ( BOLUS) heparin in D5W IV infusion 25,000 units/250 mL, 1-2,500 Units/hr, intravenous, CONTINUOUS insulin lispro (HUMALOG) injection, , subcutaneous, QID insulin NPH (HUMULIN N) injection 75 Units, 75 Units, subcutaneous, BEFORE BREAKFAST magnesium oxide (MAG-OX) tablet 400 mg, 400 mg, oral, DAILY OLANZapine (ZYPREXA) tablet 30 mg, 30 mg, oral, HS oxyCODONE (immediate release) (ROXICODONE) tablet 5-10 mg, 5-10 mg, oral, Q4H PRN polyethylene glycol (MIRALAX) powder 34 g, 34 g, oral, TID PRN thyroid tablet 30 mg, 30 mg, oral, DAILY topiramate (TOPAMAX) tablet 200 mg, 200 mg, oral, BID warfarin (COUMADIN) tablet 5 mg, 5 mg, oral, QPM ALPRAZolam 1 mg oral tablet, Take 1 mg by mouth three times daily as needed for anxiety. ascorbic acid (VITAMIN C) 500 mg Oral tablet, Take 500 mg by mouth once daily. CALCIUM [id number] ORAL, Take 2 tablets by mouth two times daily. eletriptan 20 mg oral tablet, Take 20 mg by mouth as needed for migraine. May repeat in 2 h ours if necessary; Max of 2 doses per 24 hour period. ergocalciferol (VITAMIN D2) 50,000 unit oral capsule, Take 50,000 Units by mouth twice week ly (on Thursday and ). FLUoxetine 40 mg Oral capsule, Take 60 mg by mouth once daily. gabapentin 300 mg oral capsule, Take 300 mg by mouth four times daily. HUM INSULIN NPH/REG INSULIN HM (HUMULIN 70/30 SUBQ), Inject 100 Units under the skin (SUBC) once daily at bedtime. HYDROcodone-acetaminophen 10-325 mg oral tablet, Take 1 tablet by mouth every six hours as needed. magnesium oxide 400 mg oral tablet, Take 400 mg by mouth once daily. metFORMIN 1,000 mg Oral tablet, Take 1,000 mg by mouth two times daily. OLANZAPINE (ZYPREXA ORAL), Take 30 mg by mouth once daily at bedtime. phentermine 37.5 mg oral tablet, Take 1 tablet by mouth once daily in the morning. Administ er before breakfast. (Patient taking differently: Take 37.5 mg by mouth before breakfast. Ad planner intern before breakfast.) piroxicam 20 mg Oral capsule, Take 20 mg by mouth once daily at bedtime. potassium chloride SR 10 mEq oral tablet,ER particles/crystals, Take 10 mEq by mouth once d aily. pseudoephedrine 60 mg oral tablet, Take 120 mg by mouth once daily as needed. ranitidine 300 mg Oral tablet, Take 300 mg by mouth once daily at bedtime as needed. SULFAMETHOXAZOLE/TRIMETHOPRIM (BACTRIM ORAL), Take by mouth two times daily. thyroid (ARMOUR THYROID) 30 mg oral tablet tab, Take 30 mg by mouth once daily. topiramate (TOPAMAX) 100 mg oral tablet, Take 1 tablet by mouth two times daily. (Patient t aking differently: Take 200 mg by mouth two times daily.) TORSEMIDE ORAL, Take 40 mg by mouth two times daily. traZODone 150 mg Oral tablet, Take 150 mg by mouth once daily at bedtime. Diagnosis: deep venous thrombosis Warfarin start date: today INR target: 2-3 Anticipated term of therapy: 3 months Patient reports missing warfarin doses: No Current medication interactions: Yes - fluoxetine and thyroid Events affecting anticoagulation (vitamin K, FFP, PRBC administration): None Other anticoagulants/anti-platelet agents: Yes - heparin gtt Home warfarin regimen: new start Assessment/Plan: Added to top of note Jaswinder Xavier, PharmD Sammi sanford, Luca Rodriguez, RPh - 11/07/2015 12:52 AM PDT Pharmacy Services: Admission Medication Reconciliation Prior to Admission Medications: Prior to Admission Medications Prescriptions Last Dose Informant Patient Reported? Taking? ALPRAZolam 1 mg oral tablet 11/06/2015 at Unknown time Yes Yes Sig: Take 1 mg by mouth three times daily as needed for anxiety. CALCIUM [id number] ORAL 11/06/2015 at Unknown time Yes Yes Sig: Take 2 tablets by mouth two times daily. FLUoxetine 40 mg Oral capsule 11/05/2015 at Unknown time Yes Yes Sig: Take 60 mg by mouth once daily. HUM INSULIN NPH/REG INSULIN HM (HUMULIN 70/30 SUBQ) 11/05/2015 at Unknown time Yes Yes Sig: Inject 100 Units under the skin (SUBC) once daily at bedtime. HYDROcodone-acetaminophen 10-325 mg oral tablet 11/06/2015 at Unknown time Yes Yes Sig: Take 1 tablet by mouth every six hours as needed. OLANZAPINE (ZYPREXA ORAL) 11/05/2015 at Unknown time Yes Yes Sig: Take 30 mg by mouth once daily at bedtime. SULFAMETHOXAZOLE/TRIMETHOPRIM (BACTRIM ORAL) 11/05/2015 at Unknown time Yes Yes Sig: Take by mouth two times daily. TORSEMIDE ORAL 11/06/2015 at Unknown time Yes Yes Sig: Take 40 mg by mouth two times daily. ascorbic acid (VITAMIN C) 500 mg Oral tablet 11/06/2015 at Unknown time Yes Yes Sig: Take 500 mg by mouth once daily. ergocalciferol (VITAMIN D2) 50,000 unit oral capsule 11/05/2015 at Unknown time Yes Yes Sig: Take 50,000 Units by mouth twice weekly (on Thursday and ). gabapentin 300 mg oral capsule 11/06/2015 at Unknown time Patient Yes Yes Sig: Take 300 mg by mouth four times daily. magnesium oxide 400 mg oral tablet 11/06/2015 at Unknown time Yes Yes Sig: Take 400 mg by mouth once daily. metFORMIN 1,000 mg Oral tablet 11/06/2015 at Unknown time Yes Yes Sig: Take 1,000 mg by mouth two times daily. phentermine 37.5 mg oral tablet 11/06/2015 at Unknown time No Yes Sig: Take 1 tablet by mouth once daily in the morning. Administer before breakfast. Patient taking differently: Take 37.5 mg by mouth before breakfast. Administer before break fast. piroxicam 20 mg Oral capsule 11/05/2015 at Unknown time Yes Yes Sig: Take 20 mg by mouth once daily at bedtime. potassium chloride SR 10 mEq oral tablet,ER particles/crystals 11/06/2015 at Unknown time Y es Yes Sig: Take 10 mEq by mouth once daily. pseudoephedrine 60 mg oral tablet 11/05/2015 at Unknown time Yes Yes Sig: Take 120 mg by mouth once daily as needed. ranitidine 300 mg Oral tablet Not Taking at Unknown time Yes No Sig: Take 300 mg by mouth once daily at bedtime as needed. thyroid (ARMOUR THYROID) 30 mg oral tablet tab 11/06/2015 at Unknown time Yes Yes Sig: Take 30 mg by mouth once daily. topiramate (TOPAMAX) 100 mg oral tablet 11/06/2015 at Unknown time No Yes Sig: Take 1 tablet by mouth two times daily. Patient taking differently: Take 200 mg by mouth two times daily. traZODone 150 mg Oral tablet 11/05/2015 at Unknown time Yes Yes Sig: Take 150 mg by mouth once daily at bedtime. The above list reflects the patient's prior to admission medication use and is complete and accurate to the best of my knowledge. Source of Medication Information: Patient Reliability: Reliable All questions concerning medications, including OTC and herbal products, were addressed. For questions regarding this information please contact pharmacy, pager [phone] Luca Goodman Jr., PharmD, BCPS Clinical Pharmacist [facility] Pharmacy Services Benito Kumar Phar mD - 11/06/2015 10:33 PM PDT Pharmacist Managed Vancomycin: Initial Note Indication: cellulitis Goal trough: 10-15 CrCl cannot be calculated (Unknown ideal weight.). Urine output: unable to assess in ED Renal function: stable Assessment/Plan: - Start vancomycin 2000 mg IV once, followed by 1500 mg IV every 8 hours - Pharmacist will order trough level prior to fourth dose. 40 year old morbidly obese female to receive vancomycin per pharmacy dosing for treatment o f cellulitis that has not responded to oral antibiotics. Will give a 2000 mg IV dose of van comycin, followed closely by 1500 mg IV every 8 hours. Will need to check vancomycin level with 4th dose, but patient may not be at steady state at that time due to large volume of di stribution. Pharmacist will assess serum creatinine, BUN and urine output daily to determine appropriat e ordering of vancomycin levels. Please page clinical pharmacist ([phone]) or call central inpatient pharmacy ([phone]) with qu estions. Actual body weight: Weight: 214.551 kg (473 lb) (11/06/15 1340) Labs: CREATININE PLASMA (LAB) (mg/dL) Date Value 11/06/2015 0.82 BUN, PLASMA (LAB) (mg/dL) Date Value 11/06/2015 16 WHITE CELL COUNT (K/cu mm) Date Value 11/06/2015 14.02* Pertinent cultures/sensitivities: No positive culture results in EPIC Thank you for the consult, Benito Fernando, Pharm.D. [place] [phone] documented in this encounter ED Notes Celina Cummings RN - 11/07/2015 11:05 PM PDTTransport team in ED obs to transfer [facility]. Pt aware of plan of care. Belongings to be transferred with VIP. LINDA Nelson aware molly t pt bag needs to be moved to in patient room. Celina Negron RN - 11/07/2015 10:32 PM PDTRN ADMISSION NOTE Reason for Admission: chf, dvt LLE - on heparin gtt with next lab check at ~0100; obesity; BLE cellulitis Allergies: Amoxicillin; Benadrilina; and Parlodel Pertinent PMHx: obesity, cellulitis, dyspnea, recent weight gain despite loosing weight for upcoming bariatric surgery Code Status: Full Code Restrictions: strict I and os Pertinent Physical Findings: pain in LLE; wheezing with insp resolved after neb tx; cms+LLE , redness to b LE Pain Assessment: medicated with prn oxy 10mg at ~2225 Stability: Moderately Stable Safety Risks: fall risk Risk R/T Comfort/Anxiety: will ask for pain meds when needed Orders to follow up on: heparin gtt Report called to: Teresa IGLESIAS in 14C unit. MD report called? yes Celina Negron RN - 11/07/2015 7:53 PM PDTDr. Deepthi notified of pt c/o wheezing. She states that she will see pt shortly. Pt notified. No new orders at this time. Rachele Mcghee RN - 11/07/2015 7:38 PM PDTI have re linquished care of this patient. Bedside report to Ottoy Celina Negron RN - 11/07/2015 7:25 PM PDTI have assum ed care of this patient from KELSIE Jeffrey.Electronically signed by Celina Cummings RN at 0 11/07/2015 7:48 PM Rachele Mcghee RN - 11/07/2015 7:01 PM PDTNursing Handoff Report Primary focus of stay: cellulitis bilateral LEs, weight gain, now with blood clot on L leg- heparin drip. Patient concern: dyspnea on exertion, weight gain, cellulitis Stability: Moderately Stable Pertinent physical findings: redness bilateral LEs, has clot on left leg, DP+2, feet warm a nd pink, sensation and movement intact. BNP WNL, had IV lasix today, 5+ liters out. Orders to follow up on: urine sample sent, TTE, spoke with Tucker from echo lab, he is awar e pt has IV access. Last pain assessment/reassessment: had headache today, was 10, down to 8 after apap and oxy , which she said was similar to her migraines at home, had sumatriptin without success, we d ont have the migraine medication she takes at home on formulary. 6/10, back, legs and head pain, medicated oxycodone. Psych/social issues: lives with mother, sister is caregiver, being worked up for bariatric surgery Safety risks: fall risk Alarm parameter changes: RR upper limit 30 with activity Care R/T comfort, hygiene, education (i.e., activity, environment, toileting, skin, ADLs, e tc.): pt reports independent, appears steady on feet, YO, block under toilet in room for vinson pport due to pt weight. Anticipated or pending procedures: INR, CBC in am, q6 heparin labs next due at 0100- rate adjusted to 2200units/22 mls at 1900Electronically signed by Rachele Crook RN at 6 7:01 PM Rachele Mcghee RN - 11/07/2015 4:49 PM PDTPt reports rodrigues has decreased to 8/ 10, oxy due in 40 minutes, pt reports she is comfortable waiting for addl medication at that time. Stacia Mcghee RN - 11/07/2015 3:57 PM PDTPt reporting 10/10 headache, she reports it feels like migrai ann she has had in the past , pain and blurry vision. Pt reports she is also having shakin ess which is not typical for her, CBG checked at 128, pt states that the shakiness "may be b ecause I am anxious about being here". VSS, pupils equal, pt awake and answering questions appropriately. Pt reports she normally takes Relpax which was ordered this am and was can celled with reason of availability and changed to Sumatriptan which was given this am, pt re ported this did not work and headache has been increasing. Spoke with Dr Ramsey, orders received for APAP and to f/u with Md if this is ineffective. Jose Atkinson MD,PhD - 11/07/2015 3:27 PM PDT IPAS(S) Handoff Note I received sign-out and accepted care of this patient from the departing resident and atten ding at 3:27 PM. Please see the primary providers note for complete elements of the histo ry, physical exam, and ED course. Illness Severity: Stable Patient Summary: Most recent vital signs: BP 128/63 | Pulse 100 | Temp 36.8 C | RR 18 | Wt 214.551 kg (473 lb) | SpO2 98% | BMI 89.42 kg/(m^2) Elzbieta Cristina is a 40 y.o. female with a PMHx of morbid obesity presented to the ED with YO, lower extremity swelling. Lab and imaging results: Labs Reviewed COMPLETE METABOLIC SET (NA,K,CL,CO2,BUN,CREAT,GLUC,CA,AST,ALT,BILI TOTAL,ALK PHOS,ALB,PROT TOTAL) - Abnormal; Notable for the following: GLUCOSE, PLASMA (LAB) 126 (*) POTASSIUM, PLASMA (LAB) 5.1 (*) CHLORIDE, PLASMA (LAB) 110 (*) TOTAL CO2, PLASMA (LAB) 20 (*) ALBUMIN, PLASMA (LAB) 3.0 (*) ALK PHOS 114 (*) AST(SGOT) 45 (*) All other components within normal limits Narrative: Sample hemolyzed. Results for K, Total Bili, Direct Bili, AST, LDH, or HDL may be inaccura te. Refer to comment under test result. GFR is estimated using the MDRD equation recommended by the National Kidney Disease Educati on Program. Estimated GFR Interpretive Information: <60 mL/min/1.73 sq m Chronic Kidney Disease <15 mL/min/1.73 sq m Kidney Failure Estimated GFR greater that 60 mL/min/1.73 sq m is of limited clinical value. The MDRD equation is not valid in the following situations: - Patients under 18 years of age - Severe malnutrition or obesity - Vegetarian diet - Rapidly changing kidney function BASIC METABOLIC SET (NA, K, CL, TCO2, BUN, CR, GLU, CA) - Abnormal; Notable for the followi ng: GLUCOSE, PLASMA (LAB) 147 (*) CHLORIDE, PLASMA (LAB) 114 (*) All other components within normal limits Narrative: GFR is estimated using the MDRD equation recommended by the National Kidney Disease Educat ion Program. Estimated GFR Interpretive Information: <60 mL/min/1.73 sq m Chronic Kidney Disease <15 mL/min/1.73 sq m Kidney Failure Estimated GFR greater that 60 mL/min/1.73 sq m is of limited clinical value. The MDRD equation is not valid in the following situations: - Patients under 18 years of age - Severe malnutrition or obesity - Vegetarian diet - Rapidly changing kidney function UA, DIPSTICK ONLY - Abnormal; Notable for the following: LEUKOCYTE ESTERASE Trace (*) All other components within normal limits URINE SCREEN FOR CULTURE - Abnormal; Notable for the following: CULT, URINE SCREEN Positive (*) All other components within normal limits Narrative: Culture Screen Positive, specimen sent for culture. URINE, MICROSCOPIC EXAM - Abnormal; Notable for the following: SQUAMOUS EPITHELIAL Few (*) NON-SQUAMOUS EPITH Few (*) AMORPHOUS CRYSTALS Few (*) All other components within normal limits BASIC METABOLIC SET (NA, K, CL, TCO2, BUN, CR, GLU, CA) - Abnormal; Notable for the followi ng: GLUCOSE, PLASMA (LAB) 154 (*) CHLORIDE, PLASMA (LAB) 109 (*) All other components within normal limits Narrative: GFR is estimated using the MDRD equation recommended by the National Kidney Disease Educat ion Program. Estimated GFR Interpretive Information: <60 mL/min/1.73 sq m Chronic Kidney Disease <15 mL/min/1.73 sq m Kidney Failure Estimated GFR greater that 60 mL/min/1.73 sq m is of limited clinical value. The MDRD equation is not valid in the following situations: - Patients under 18 years of age - Severe malnutrition or obesity - Vegetarian diet - Rapidly changing kidney function CAPILLARY BLOOD GLUCOSE (NO CHG), POC - Abnormal; Notable for the following: BLOOD GLUCOSE, POC 159 (*) All other components within normal limits CAPILLARY BLOOD GLUCOSE (NO CHG), POC - Abnormal; Notable for the following: BLOOD GLUCOSE, POC 145 (*) All other components within normal limits CAPILLARY BLOOD GLUCOSE (NO CHG), POC - Abnormal; Notable for the following: BLOOD GLUCOSE, POC 164 (*) All other components within normal limits ED BG-LAC,POC - Abnormal; Notable for the following: ED BG POC TC02 19 (*) ED BG POC PH 7.32 (*) ED BG POC HCO3 18 (*) All other components within normal limits CBC AND AUTO DIFF - Abnormal; Notable for the following: WHITE CELL COUNT 14.02 (*) HEMOGLOBIN 10.3 (*) HEMATOCRIT 34.9 (*) RDW SD 50.8 (*) EOS % 6.1 (*) IMMATURE GRANULOCYTE% 0.9 (*) NEUTROPHIL # 8.87 (*) MONOCYTE # 1.08 (*) EOS # 0.85 (*) BASO # 0.12 (*) IMMATURE GRANULOCYTE# 0.12 (*) All other components within normal limits Narrative: Immature Granulocytes (IG) include metamyelocytes, myelocytes and promyelocytes. Bands a re not included in the IG count. Bands are included in the neutrophil count. CBC (HEMOGRAM) ONLY - Abnormal; Notable for the following: RED CELL COUNT 3.74 (*) HEMOGLOBIN 9.0 (*) HEMATOCRIT 30.1 (*) RDW SD 49.3 (*) MPV 9.2 (*) All other components within normal limits MAGNESIUM, PLASMA - Normal NT-PRO BNP - Normal TSH W/REFLEX TO FREE T4(IF ABNORMAL) - Normal Narrative: TSH reference ranges are influenced by a variety of environmental influences, age, gender and ethnicity. The supplied reference limits are based on published values utilizing a [employer] TSH assay, and should be interpreted with caution. MAGNESIUM, PLASMA - Normal INR - Normal Narrative: INR Therapeutic ranges for full anticoagulation: INR for Venous Thromboembolism (2.0 - 3.0) INR INR for most patients with mech. valves (2.5 - 3.5) INR CBC, WITH DIFFERENTIAL Narrative: The following orders were created for panel order CBC, WITH DIFFERENTIAL. Procedure Abnormality Status --------- ------ CBC AND AUTO DIFF[[id number]] Abnormal Final result Please view results for these tests on the individual orders. RAINBOW HOLD TUBE - BLUE TOP CBC ONLY Narrative: The following orders were created for panel order CBC ONLY. Procedure Abnormality Status --------- ------ CBC (HEMOGRAM) ONLY[[id number]] Abnormal Final result Please view results for these tests on the individual orders. HEPARIN, EITHER STANDARD / LMW, BLOOD Narrative: Heparin, Either STD/LMW - Therapeutic Ranges: Heparin, Unfractionated: 0.35 - 0.70 U/mL Enoxaparin, LMWH: 0.70 - 1.20 U/mL Dalteparin, LMWH: 0.70 - 1.20 U/mL Tinzaparin, LMWH: Therapeutic range not established. Preliminary studies suggest range similar to dalteparin. Clinical correlation required. Heparin levels may be unreliable for: Total bilirubin >28.8 mg/dL Triglycerides >690 mg/dL or Moderate to Gross Hemolysis CULTURE, URINE [facility] CAPILLARY BLOOD GLUCOSE (NO CHG), POC TROPONIN, POC DVT shown Heparin drip started, will transition to coumadin tonight Admitted to medicine No CTA done Action plan (To Do): Admit to medicine ED Course Following Sign Out: Called to bedside to evaluate for shortness of breath Morbidly obese patient reports that she has history of seasonal allergies, and was reportin g wheezing, reported that in the past she had symptomatic improvement with albuterol MDI Patient prescribed albuterol nebulizer in the emergency department with good response Patient successfully admitted to medicine Jose Ramsey MD,PhD Rachele Mcghee RN - 11/07/2015 12:52 PM PDTEcho Selleroutlet Tucker notified that pt now has IV accessElectronically s igned by Rachele Crook RN at 11/07/2015 12:55 PM Rachele Mcghee RN - 11/07/2015 11:49 AM PDTPIV x2 placed by IV therapy, blood drawn for heparin levels, spoke with KALYAN Cosme, ok to also send 1400 BMS now. 11 :49 AM Rachele Mcgehe RN - 11/07/2015 11:28 AM PDTIV therapy to bedsideElectronically s igned by Rachele Crook RN at 11/07/2015 11:28 AM Rachele Mcghee RN - 11/07/2015 11:16 AM [id number]:Pt complaining of pain at IV site, pt reports she is a hard stick, IV access att empted x1 by KELISE Garcia. Entered order for IV therapy consult for line placement, heparin and labs. 1115: echo here for test, IV access needed, called [facility], they will call IV therapy to come and eval pt. Radha Neumann RN - 11/07/2015 7:28 AM PDTUlt [employer] called inquiring on repeat imagining that was ordered this AM. Provider notified, provider to contact inpatient team to further inquire on imagining. Per provider hold on imagining at this time. Electronically s igned by Radha Vega RN at 11/07/2015 7:29 AM Andree Aj RN - 11/07/2015 6:0 3 AM PDTNursing Handoff Report Primary focus of stay: cellulitis bilateral LEs, weight gain Patient concern: dyspnea on exertion, weight gain, cellulitis Stability: Moderately Stable Pertinent physical findings: redness bilateral LEs, BNP WNL Orders to follow up on: urine sample, TTE Last pain assessment/reassessment: 01/03, back, legs and head pain, medicated Psych/social issues: lives with mother, sister is caregiver, being worked up for bariatric surgery Safety risks: fall risk Alarm parameter changes: RR upper limit 30 Care R/T comfort, hygiene, education (i.e., activity, environment, toileting, skin, ADLs, e tc.): pt reports independent Anticipated or pending procedures: TTE 16 6:06 AM Carmelina Wise PA-C - 11/07/2015 6:02 AM PDTIPAS(S) Handoff Note I received sign-out and accepted care of this patient from the departing resident and atten ding at 6:02 AM. Please see the primary providers note for complete elements of the histo ry, physical exam, and ED course. Illness Severity: Stable SChandler Cristina is a 40 y.o. female with a PMH of DMII, HTN, Hypothyroidism, and Morbid Obesity who presented to the ED by request of Endocrinology for evaluation of dyspnea and w eight gain. B: VS: tachy 97-115 bpm, sats >93% on RA, normotensive Exam: LLE cellulitic changes Labs: WBC 14, BNP 64, Hct 30.1, lactate 1.3, trop <0.02 Imaging: CXR neg, LLE Duplex completed (awaiting results) EKG: ST Therapies: Vancomycin Consults: IM A: L03.116 Cellulitis of left lower extremity R60.1 Anasarca A41.9 Sepsis, due to unspecified organism (HCC) I50.9 Heart failure, unspecified (HCC) R: Action plan (To Do): Admit to IM - awaiting bed Continue vanc ED Course Following Sign Out: 8:25 AM Medicine evaluated pt, desired 120mg IV lasix (ordered) Pt desired tx for RODRIGUES - feels it is early migraine. Imitrex SC ordered. 10:00 AM Final LLE Duplex study resulted with: Abnormal Doppler ultrasound exam of the left lower extremity venous system with occlusive thrombus seen within the mid and distal femoral vein and popliteal vein. Nonocclusive thrombus in left posterior tibial vein. Bilateral common femoral veins patent IM provider made aware of finding. Heparin drip Warfarin - start tonight (5mg) Hold off on Chest CT for now Pt stable during remainder of shift Carmelina Tucker PA-C Andree Aj RN - 11/07/2015 4:16 AM PDTUnable to obtain blood for lab from existing IV, placed additional line, antibiotics infusing. Andree Aj RN - 11/07/2015 2:26 AM PDTPt provided with lunch tray sandwich, aware o f need for urine sample, states needs home medications- awaiting orders from inpatient team. Call light in reach. Neelam Gerardo RN - 11/07/2015 1:57 AM PDTNursing Handoff Report Primary focus of stay: Cellulitis/pain, weight gain Patient concern: Pain control. Stability: Moderately Stable Pertinent physical findings: Severe edema to BLE, Obese, increased pain upon palpation/ambu lation; doppler of lower extremities done; plan for iv antibiotics Orders to follow up on: Urine; doppler results; admission Last pain assessment/reassessment: oxy 10 given at 0125 Psych/social issues: alert and oriented Safety risks: fall risk Alarm parameter changes: none Care R/T comfort, hygiene, education (i.e., activity, environment, toileting, skin, ADLs, e tc.): Obesity and mobility, ambulated from wheelchair to bathroom, placed in hospital bed. Anticipated or pending procedures: admission Relinquished care and SBAR to Ashish Alan RN in Ed Obs. Olga Lidia Pete RN - 12:55 AM PDTPt returned from [place].Electronically signed by Olga Lidia Gracia RN at 016 12:55 AM Joseph Peterson MD - 11/07/2015 12:08 AM PDTFormatting of this note migh t be different from the original. ED Individual Provider Note, Joseph Cox MD: Cellulitis 40 y.o. female to the emergency Department as a referral from her endocrinology clinic rosanne ointment today. Concerns are progressively worsening left lower extremity cellulitis and pos sibly new onset heart failure. Patient has noted progressive redness pain and swelling to th e left lower extremity over the course of the last month. She has been on 3 different by tin th anabiotic courses and this does not seem to be getting better but seems to be getting wor se. She is not sure she's had any fevers. She denies nausea, vomiting, shaking chills. She d enies any trauma to the leg and has no prior history of DVT or PE. Additionally patient reports she has had progressive weight gain over 6 months despite acti vely trying to lose weight for her bariatric surgery. For her endocrinology note today she i s put on 100 pounds in the last 6 months. Additionally she has increase in dyspnea on exerti on and shortness of breath and this was concerning for possible new heart failure. Patient d enies any chest pain, fever, cough, sputum, hemoptysis. She states she chronically retains w ater and feels like this is increased water retention. She has been taking torsemide in the outpatient setting but doesn't feel like this is working stating she's not pain at her basel ine. PCP: Fadi Goodrich DO Patient Active Problem List Diagnosis Date Noted YO (dyspnea on exertion) 11/06/2015 Anasarca 11/06/2015 Cellulitis of left lower extremity 11/06/2015 Diabetes mellitus with insulin therapy (HCC) 12/27/2014 Hypothyroidism 08/28/2014 Abdominal pain 02/07/2014 Migraine headache 12/05/2013 Vitamin D deficiency disease 06/16/2013 Intertriginous candidiasis 06/16/2013 HTN (hypertension) 06/16/2013 Skin breakdown 06/16/2013 Anemia 06/16/2013 Decreased mobility 06/16/2013 Hypoventilation associated with obesity ([facility]) 06/16/2013 PCOS (polycystic ovarian syndrome) 06/16/2013 Ventral hernia 06/16/2013 Type 2 diabetes mellitus ([facility]) 04/14/2013 AMARA (obstructive sleep apnea) 04/14/2013 Overview Note: Cannot tolerate CPAP Edema 04/14/2013 GERD (gastroesophageal reflux disease) 04/14/2013 Morbid obesity ([facility]) 11/12/2012 Overview Note: Lifetime max: 495 lbs Hernia 11/05/2012 Past Medical History Diagnosis Date Neck pain Insomnia Allergic rhinitis Lymphedema Diverticulitis of colon Hemorrhoids UTI (urinary tract infection) Tinea corporis Osteoarthritis of knee TIA (transient ischemic attack) due to Bromocriptine Myalgia and myositis Bipolar disorder ([facility]) Depression Staphylococcal infection Anemia Chronic wound infection of abdomen ([facility]) from 2010 Morbid obesity with body mass index of 70 and over in adult ([facility]) Incisional hernia, incarcerated 2012 Hernia of abdominal wall Stroke ([facility]) Dizziness Numbness Heart burn Nausea Abdominal pain Shortness of breath Pneumonia Cough Palpitations Kidney stone Leaking of urine Irregular periods Abnormal ThinPrep Pap test of vagina Leg sore Anxiety Glaucoma Past Surgical History Procedure Date Tonsillectomy and adenoidectomy Appendectomy, open 2010 Umbilical hernia repair 2010 Treatment of ankle fracture with screws remaining Incision and drainage of wound abscess x2 midline transverse wound s/p open appendectomy 2010 Ventral hernia repair 10/2012 Dr. Andie Brian Incisional hernia repair 03/01/2015 [facility]/ Dr. Cantu. Primary fascial closure and scar excision Medications Prior to Admission Medications Prescriptions Last Dose Informant Patient Reported? Taking? ALPRAZolam 1 mg oral tablet 11/06/2015 at Unknown time Yes Yes Sig: Take 1 mg by mouth three times daily as needed for anxiety. CALCIUM [id number] ORAL 11/06/2015 at Unknown time Yes Yes Sig: Take 1 tablet by mouth two times daily. FLUoxetine 40 mg Oral capsule 11/05/2015 at Unknown time Yes Yes Sig: Take 40 mg by mouth once daily. HUM INSULIN NPH/REG INSULIN HM (HUMULIN 70/30 SUBQ) 11/05/2015 at Unknown time Yes Yes Sig: Inject 50 cc under the skin (SUBC) once daily. HYDROcodone-acetaminophen 10-325 mg oral tablet 11/06/2015 at Unknown time Yes Yes OLANZAPINE (ZYPREXA ORAL) 11/05/2015 at Unknown time Yes Yes Sig: Take 30 mg by mouth once daily. SULFAMETHOXAZOLE/TRIMETHOPRIM (BACTRIM ORAL) 11/05/2015 at Unknown time Yes Yes Sig: Take by mouth two times daily. TORSEMIDE ORAL 11/06/2015 at Unknown time Yes Yes Sig: Take 40 mg by mouth two times daily. ascorbic acid (VITAMIN C) 500 mg Oral tablet 11/06/2015 at Unknown time Yes Yes Sig: Take 500 mg by mouth once daily. cephALEXin 500 mg oral capsule Within last 30 days at Unknown time Patient Yes Yes Sig: Take 500 mg by mouth four times daily. clindamycin 300 mg oral capsule Within last 30 days at Unknown time Patient Yes Yes Sig: Take 500 mg by mouth twice daily (every Thursday and ). ergocalciferol (VITAMIN D2) 50,000 unit oral capsule 11/05/2015 at Unknown time Yes Yes Sig: Take 50,000 Units by mouth twice weekly (on Thursday and ). gabapentin 300 mg oral capsule 11/06/2015 at Unknown time Patient Yes Yes Sig: Take 300 mg by mouth four times daily. magnesium oxide 400 mg oral tablet 11/06/2015 at Unknown time Yes Yes Sig: Take 400 mg by mouth once daily. metFORMIN 1,000 mg Oral tablet 11/06/2015 at Unknown time Yes Yes Sig: Take 1,000 mg by mouth once daily. phentermine 37.5 mg oral tablet 11/06/2015 at Unknown time No Yes Sig: Take 1 tablet by mouth once daily in the morning. Administer before breakfast. piroxicam 20 mg Oral capsule 11/05/2015 at Unknown time Yes Yes Sig: Take 20 mg by mouth once daily. polyethylene glycol 17 gram/dose oral powder Not Taking at Unknown time No No Sig: Take 17 g by mouth once daily as needed (for no BM for 2 days). potassium chloride SR 10 mEq oral tablet,ER particles/crystals 11/06/2015 at Unknown time Y es Yes Sig: Take 10 mEq by mouth once daily. pseudoephedrine 60 mg oral tablet 11/05/2015 at Unknown time Yes Yes Sig: Take 120 mg by mouth two times daily. ranitidine 300 mg Oral tablet Not Taking at Unknown time Yes No Sig: Take 300 mg by mouth once daily at bedtime. thyroid (ARMOUR THYROID) 30 mg oral tablet tab 11/06/2015 at Unknown time Yes Yes Sig: Take 30 mg by mouth once daily. topiramate (TOPAMAX) 100 mg oral tablet 11/06/2015 at Unknown time No Yes Sig: Take 1 tablet by mouth two times daily. Patient taking differently: Take 200 mg by mouth once daily. traZODone 150 mg Oral tablet 11/05/2015 at Unknown time Yes Yes Sig: Take 150 mg by mouth once daily at bedtime. Facility-Administered Medications: None Allergies Allergen Reactions Amoxicillin Benadrilina [Diphenhydramine Hcl] Hives Parlodel [Bromocriptine] Unknown Blood clots Social History reports that she has quit using tobacco. She reports that she does not currently drink al cohol or use illicit drugs. Family History Problem Relation Alcohol/Drug Alcoholism in mother & father Hypertension M&F Asthma Father, brother, daughters Lung Disease Father Obesity M&F&Sister Diabetes Mother Arthritis M&F Heart Attack Father Diabetes Mother ROS 10 Point Review of Systems is negative except as stated in the [facility] ED Triage Vitals BP Temp Pulse Pulse - Plethysmograph Resp SpO2 11/06/15 1340 11/06/15 1340 11/06/15 1340 11/06/15 2022 11/06/15 1340 11/06/15 1340 138/94 mmHg 36.8 C 115 105 pulses/min 16 100 % Heart rate is 92 on my exam Physical Exam Constitutional: She is oriented to person, place, and time. No distress. Nontoxic appearing HENT: Head: Normocephalic and atraumatic. Mouth/Throat: No oropharyngeal exudate. Membranes are dry and tachy Eyes: EOM are normal. No scleral icterus. Neck: Normal range of motion. Neck supple. Unable to appreciate jugular venous pressure Cardiovascular: Normal rate, regular rhythm and intact distal pulses. Exam reveals no gall op and no friction rub. No murmur heard. Initial tachycardia Pulmonary/Chest: Effort normal and breath sounds normal. She has no wheezes. She has no ral es. Exam is somewhat limited due to body habitus Abdominal: Soft. Bowel sounds are normal. There is no tenderness. There is no rebound and n o guarding. Musculoskeletal: Normal range of motion. She exhibits edema and tenderness. Legs: Neurological: She is alert and oriented to person, place, and time. She has normal strength . No cranial nerve deficit. GCS eye subscore is 4. GCS verbal subscore is 5. GCS motor subsc ore is 6. Skin: Skin is warm. No rash noted. She is not diaphoretic. Psychiatric: She has a normal mood and affect. Nursing note and vitals reviewed. ED COURSE AND MEDICAL DECISION MAKING: ED Medication Administration from 11/06/2015 1325 to 11/07/2015 0008 Date/Time Order Dose Route Action 11/06/2015 204 HYDROmorphone (DILAUDID) injection 1 mg 1 mg intravenous ED Push 11/06/2015 2245 ketorolac (TORADOL) injection 30 mg 30 mg intravenous Given/New Bag 11/06/20152043 NaCl 0.9 % solution 1,000 mL intravenous Given/New Bag 11/06/2015 211 vancomycin (VANCOCIN) IV 2,000 mg 2,000 mg intravenous Given/New Bag Results for orders placed or performed during the hospital encounter of 11/06/15 X-RAY CHEST 2 VIEW Result Value Ref Range CHEST, 2 VIEWS OR STEREO EXAM: CHEST 2 VIEWS 11/06/15 14:22:00 HISTORY: [...] signed / ONUR DAO 11/06/2015 15:02 PM COMPLETE METABOLIC SET (NA,K,CL,CO2,BUN,CREAT,GLUC,CA,AST,ALT,BILI TOTAL,ALK PHOS,ALB,PROT TOTAL) Result Value Ref Range GLUCOSE, PLASMA (LAB) 126 (H) 60-99 mg/dL BUN, PLASMA (LAB) 16 6-20 mg/dL CREATININE PLASMA (LAB) 0.82 0.60-1.10 mg/dL EGFR - CYMRAES >60 >60 mL/min EGFR NON -CYMRAES >60 >60 mL/min SODIUM, PLASMA (LAB) 139 136-145 mmol/L POTASSIUM, PLASMA (LAB) 5.1 (H) 3.4-5.0 mmol/L CHLORIDE, PLASMA (LAB) 110 (H) 97-108 mmol/L TOTAL CO2, PLASMA (LAB) 20 (L) 21-32 mmol/L CALCIUM, PLASMA (LAB) 9.1 8.6-10.2 mg/dL BILIRUBIN TOTAL 0.3 0.3-1.2 mg/dL TOTAL PROTEIN, PLASMA (LAB) 7.7 6.4-8.2 g/dL ALBUMIN, PLASMA (LAB) 3.0 (L) 3.5-4.7 g/dL ALK PHOS 114 (H) 42-98 U/L AST(SGOT) 45 (H) <=41 U/L ALT (SGPT) 29 <=60 U/L ANION GAP(ALB CORRECTED) 11 4-11 mmol/L POTASSIUM CMNT Sl Hemo AST CMNT Sl Hemo ANION GAP 9 mmol/L MAGNESIUM, PLASMA Result Value Ref Range MAGNESIUM,PLASMA 1.9 1.8-2.5 mg/dL NT-PRO BNP Result Value Ref Range NT-PRO BNP 64 <125 pg/mL 12 LEAD ECG Result Value Ref Range VENTRICULAR RATE 117 bpm ATRIAL RATE 117 bpm P-R INTERVAL 176 ms P AXIS 48 deg QRS DURATION 80 ms QT 316 ms QTCB 441 ms R AXIS -73 deg T AXIS 33 deg ECG IMPRESSION SINUS TACHYCARDIAABNORMAL Q SUGGESTS ANTERIOR INFARCT- ABNORMAL ECG -Electronically signed by: MARLENY CHRISTIAN 11-06-2015 19:39:46 TROPONIN, POC Result Value Ref Range TROPONIN, POC <0.02 0.0 - 0.49 ng/mL ED BG-LAC,POC Result Value Ref Range ED BG POC TC02 19 (L) 23-29 mmol/L ED BG POC PH 7.32 (L) 7.35-7.45 ED BG POC PCO2 36 35-50 mmHg ED BG POC HCO3 18 (L) 22-28 mmol/L ED BG POC BE -8.0 mmol/L ED BG POC PO2 <50 30 - 55 mmHg ED BG POC SO2 82 % ED LACTATE POC 1.3 0.5-2.2 mmol/L ED BG POC TEMP 36.8 C ISTAT SAMPLE TYPE VENOUS CBC AND AUTO DIFF Result Value Ref Range WHITE CELL COUNT 14.02 (H) 4.40-11.00 K/cu mm RED CELL COUNT 4.30 4.00-5.20 M/cu mm HEMOGLOBIN 10.3 (L) 12.0-16.0 g/dL HEMATOCRIT 34.9 (L) 36.0-46.0 % MCV 81.2 80.0-96.0 fL MCHC 29.5 33.0-35.5 g/dL RDW SD 50.8 (H) 35.1-46.3 fL PLATELET COUNT 307 150-400 K/cu mm MPV 9.8 9.7-12.3 fL NRBC% 0.0 0.0-0.3 % NRBC# 0.00 0.00-0.02 K/cu mm NEUTROPHIL % 63.1 50.0-70.0 % LYMPHOCYTE % 21.3 18.0-42.0 % MONOCYTE % 7.7 3.5-9.0 % EOS % 6.1 (H) 1.0-3.0 % BASO % 0.9 0.0-2.0 % IMMATURE GRANULOCYTE% 0.9 (H) 0.0-0.6 % NEUTROPHIL # 8.87 (H) 1.80-7.70 K/cu mm LYMPHOCYTE # 2.98 1.00-4.80 K/cu mm MONOCYTE # 1.08 (H) 0.10-0.90 K/cu mm EOS # 0.85 (H) 0.00-0.50 K/cu mm BASO # 0.12 (H) 0.00-0.10 K/cu mm IMMATURE GRANULOCYTE# 0.12 (H) 0.00-0.03 K/cu mm ED INFORMATION EXCHANGE Result Value Ref Range DELTA PID [id number] 40-year-old female presents to the emergency department from her endocrinology clinic with concerns for progressive cellulitis failing outpatient anabiotics and unexplained weight gai n. Regarding the cellulitis I do think this is infectious I don't think that the patient has e vidence of a necrotizing soft tissue infection at this time. She has demonstrated that she i s failing outpatient anabiotic's and I feel that IV therapy is going to be required probably for 2-3 days to improve this infection. She does meet sepsis criteria with a heart rate in the 1 teens and a leukocytosis of 14 though it is reassuring that her heart rate has been re sponsive to IV fluid therapy. There are no signs of end organ damage or hypotension. Given t his I feel the patient is stable for gallo admission Additionally the patient has progressive weight gain despite attempting weight loss with so me symptoms suggestive of congestive heart failure with reports of YO and orthopnea. This d iagnosis is unclear however as the patient's BNP and chest x-ray are not suggestive of CHF. Given her risk factors it would be reasonable though to obtain an echocardiogram to rule thi s diagnosis out. Even in the absence of congestive heart failure given progressively worseni ng edema patient likely benefit from IV diuresis. We will also obtain a duplex of the left lower extremity to rule out DVT however I think th at this is less likely. Admit Requested: Nov 06, 2015 8:32 PM Elzbeita Cristina requires hospitalization beyond acute emergency department care. Factors favoring inpatient status include: expected hospital stay greater than two nights IMPRESSION: L03.116 Cellulitis of left lower extremity R60.1 Anasarca A41.9 Sepsis, due to unspecified organism (HCC) I50.9 Heart failure, unspecified (HCC) PLAN, DISPOSITION AND FOLLOW-UP: Admit to internal medicine JOSEPH COX MD Department of Emergency Medicine [place] Olga Lidia Pete RN - 11/07/2015 12:01 AM PDTPt to vascular ultrasound.Electronically signed by KELSIE Tamez 11/07/2015 12:01 AM Neelam Lawson RN - 11/06/2015 11:04 PM PDTI have assumed care of this patient. SBAR from KELSIE Bonilla. 1 1:04 PM Dharmesh Balderas RN - 11/06/2015 11:04 PM PDTI have relinquished care of this pa tient. Annette Balderas RN - 11/06/2015 10:56 PM PDTNursing Handoff Report Primary focus of stay: Cellulitis/pain, weight gain Patient concern: Pain control. Stability: Moderately Stable Pertinent physical findings: Severe edema to BLE, Obese, increased pain upon palpation/ambu lation. Orders to follow up on: Urine, Ultrasound rescheduled. Last pain assessment/reassessment: Pain 10/10 with ambulation to bathroom, toradol IV used to moderate effect. Psych/social issues: unknown. Safety risks: fall risk Alarm parameter changes: none Care R/T comfort, hygiene, education (i.e., activity, environment, toileting, skin, ADLs, e tc.): Obesity and mobility, ambulated from wheelchair to bathroom, placed in hospital bed. Anticipated or pending procedures: admission, ultrasound. Dharmesh Balderas RN - 11/06/2015 10:55 PM PDTPatient wheeled to bathroom, transferred to hospital bed for comfort. Katherine Perez MD - 11/06/2015 10:42 PM PDTFo rmatting of this note might be different from the original. IPAS(S) Handoff Note I received sign-out and accepted care of this patient from the departing resident and atten ding at 10:43 PM. Please see the primary providers note for complete elements of the hist ory, physical exam, and ED course. Illness Severity: Stable Patient Summary: Most recent vital signs: BP 134/59 | Pulse 102 | Temp 36.7 C | RR 16 | Wt 214.551 kg (473 lb) | SpO2 96% | BMI 89.42 kg/(m^2) Elzbieta Cristina is a 40 y.o. female with a PMHx of DM type 2, HTN, hypothyroidism and morb id obesity who presented to the ED from endocrinology clinic with concern for cellulitis and weight gain and dyspnea on exertion Lab and imaging results: Troponin: 0.02 Lactate: 1.3 K+: 5.1 WBC: 14K H/H: 10/34 BNP: 64 EKG: sinus tach CXR: clear lungs Does not look to be in acute heart failure Left lower extremity cellulitis not responding to outpatient antibiotics Started on IV vancomycin Medications vancomycin (VANCOCIN) IV 1,500 mg (not administered) HYDROmorphone (DILAUDID) injection 1 mg (1 mg intravenous ED Push 11/06/152043) NaCl 0.9 % solution (1,000 mL intravenous Given/New Bag 11/06/152043) vancomycin (VANCOCIN) IV 2,000 mg (2,000 mg intravenous Given/New Bag 11/06/152118) ketorolac (TORADOL) injection 30 mg (0 mg intravenous Stopped 11/06/152255) Action plan (To Do): Admitted to IM, boarding Follow up UA if collected ED Course Following Sign Out: UA not collected Inpatient orders released [facility] JEFFREY Aguirre - Admitted to , boarding, to transfer when bed available Katherine Orozco MD Ivette Phan - 10/25 9:12 PM PDTChart reviewed for admission. Ivette Diallo RN naturopathic physician/Evening Admission RN Pager: [phone] Mary Monge RN - 8:49 PM PDTPt requesting to eat, will ask MD.Electronically signed by KELSIE Cee 11/06/2015 8:49 PM PDTBriana Barrios RN - 11/06/2015 8:12 PM PDTMD [facility] at [facility]. ridger Hernandez RN - 11/06/2015 1:41 PM PDTSee referral note. No resp distress. SKIN: mild redness. NAD. Tachy. Afebrile. documented in this encounter Miscellaneous Notes Plan of Care - Jana Noguera RN - 11/21/2015 1:48 PM PDTNursing Discharge Note Discharge Date: 11/21/2015 Additional Discharge Information: PICC removed by IVT. AVS reviewed with patient. DC home w ith family. Discharge Nurse: Jana Noguera RN lan of Care - Michaelle Asher RN - 11/21/2015 7:57 AM PDTProblem: Case Management Goals Goal: Discharge Needs Met Pt is not clinically stable for d/c. Please see MD notes, After Visit Summary (discharge i nstructions), and any additional ancillary consultation notes for any discharge needs or f/u needs not requiring CM intervention. . No need for discharge planning assistance from [facility] Nurse Care Management anticipated at this time. Please notify CM if any RN Care Management d/c needs arise. KELSIE Braswellhand bander RN Inpatient Care Management [address] General Medicine [phone] Pager [phone] andoff - Stefany Burkett RN - 11/21/2015 4:48 AM PDTNursing Handoff Patient Daily Goal: Not stated (11/20/15744) Patient Specific Preferences: na (11/20/15744) [facility] IP NURSE HANDOFF: [place] hospital course events: >> Presents with severe YO, 100 lb unintended weight gain, found to have a LLE DVT, new RV dysfunction and anasarca >> Hx: obesity, DM2, AMARA COMFORT/ANXIETY/BEHAVIOR Patient Target: Claudio will sleep for at least 7 hours overnight Progress to Target: Improving As evidenced by: We were able to cluster all of Elzbieta's care at the beginning and end of the shift giving her close to 8 hours of uninterrupted sleep. RESTORATIVE MEASURES/SELF-MANAGEMENT Patient Target: Elzbieta will weigh herself in AM and manage her 2L FR Progress to Target: Improving As evidenced by: Elzbieta weighed herself this AM and has been managing her FR fairly well- she went over her restriction last night but was aware of her consumption and tried to only take in what she needed for meds, etc. NURSING ASSESSMENT & RECOMMENDATIONS FORWARD Nursing Assessment of Patient Stability Risk: Moderately unstable Recommendations Forward: Moni Marsh RN - 11/20/2015 5:24 PM PDTNursing Handoff Patient Daily Goal: Not stated (11/20/15744) Patient Specific Preferences: na (11/20/15744) [facility] IP NURSE HANDOFF: [place] hospital course events: >> Presents with severe YO, 100 lb unintended weight gain, found to have a LLE DVT, new RV dysfunction and anasarca >> Hx: obesity, DM2, AMARA RESTORATIVE MEASURES/SELF-MANAGEMENT Patient Target: Elzbieta will weigh herself in AM and manage her 2L FR Progress to Target: Improving As evidenced by: Elzbieta weighed herself this AM and has been managing her FR very closely. NURSING ASSESSMENT & RECOMMENDATIONS FORWARD Nursing Assessment of Patient Stability Risk: Moderately unstable Recommendations Forward: >> K+ 2.7 this AM, replaced PO and IV this shift Rachel Arthur, KELSIE - 11/20/2015 2:18 AM PDTNursing Handoff Patient Daily Goal: sleep (11/18/152157) Patient Specific Preferences: 1 (11/16/152223) [place] IP NURSE HANDOFF: [place] hospital course events: Possible cellulitis and weight gain thou ght to be 2/2 decompensated heart failure. New dx HF. Found to have LLE DVT (painful) on hep diana drip. Hx: morbid obesity, T2 DM, HTN, OHS, hypothyroidism SAFETY Patient Target: Elzbieta will ambulate x4 daily Progress to Target: Improving As evidenced by: Elzbieta continues to ambulate to the bathroom. Her get up and go and edge of bed assessment reveal that she has adequate strength and stability to safely do so. Will need to encourage her to walk around unit as tolerated so that she continues to progress with no evidence of decline. Elzbieta walked to the bathroom multiple times this shift. Needs encouragement to w alk in halls 2/2 anxiety. COMFORT/ANXIETY/BEHAVIOR Patient Target: Elzbieta will have decreased anxiety about medical progress Progress to Target: Improving As evidenced by: Elzbieta has voiced concerns about recurrent blood clots and expressed baseline anxiety barr scooter, she was calm and cooperative. Despite the fact that her blood is now therapeutic we sti ll closely monitor for complications while come up with a safe plan for DC home. We discuss ed ways to prevent clots including frequent ambulation, dietary restrictions with medication s, and following up with PCP for blood monitoring after DC. RESTORATIVE MEASURES/SELF-MANAGEMENT Patient Target: Elzbieta will ask how much fluid she has remaining of her 2L / day restriction each time she request fluids. She will voice understanding of HF teaching. Progress to Target: Improving As evidenced by: Elzbieta is actively engaged in monitoring her fluid intake and understands it's importance in CHF. She asks regularly when requesting fluids what her remainder is and set up a distri bution plan with staff this shift. Was just over her fluid restriction today to complete ev ening meds. She verbalized understanding of HF teaching including daily weights, using the HF charts for red/yellow/green days, monitoring her diet/fluids, and getting exercise to pre vent new clots. NURSING ASSESSMENT & RECOMMENDATIONS FORWARD Nursing Assessment of Patient Stability Risk: Moderately stable Recommendations Forward: --continue to assess pain level and offer pain med Q4 hrs, states Kpad was helpful overnight --per providers, she will be here for about 2-4 more days for ongoing diuresis, and complet ion of Rt Heart Cath once euvolemic andoff - [place], Johnathan machado RN - 11/19/2015 6:00 PM PDTNursing Handoff Patient Daily Goal: sleep (11/18/15 3504) Patient Specific Preferences: 1 (11/16/152223) [facility] IP NURSE HANDOFF: [place] hospital course events: Possible cellulitis and weight gain thou ght to be 2/2 decompensated heart failure. New dx HF. Found to have LLE DVT (painful) on hep diana drip. Hx: morbid obesity, T2 DM, HTN, OHS, hypothyroidism SAFETY Patient Target: Elzbieta will ambulate x4 during this shift Progress to Target: Improving As evidenced by: Elzbieta continues to ambulate to the bathroom. Her get up and go and edge of bed assessment reveal that she has adequate strength and stability to adequately do so. Will need to encou rage her to walk around unit as tolerated so that she continues to progress with no evidenc e of decline. Elzbieta walked to the bathroom x5-6 and ambulate halls x1 this shift. COMFORT/ANXIETY/BEHAVIOR Patient Target: Elzbieta will have decreased anxiety about being off heparin gtts Progress to Target: Improving As evidenced by: [place] INR is in the therapeutic range today. Keep her inform with lab results daily wi ll help decrease anxiety. RESTORATIVE MEASURES/SELF-MANAGEMENT Patient Target: Elzbieta will ask how much flud she has remaining of her 2L / day restriction each time she request fluids Progress to Target: Improving As evidenced by: Elzbieta is actively engaged in monitoring her fluid intake and understands it's importance in CHF. She asks regularly when requesting fluids what her remainder is and set up a distri bution plan with staff this shift. Stayed within her FR 11/14 NURSING ASSESSMENT & RECOMMENDATIONS FORWARD Nursing Assessment of Patient Stability Risk: Moderately stable Recommendations Forward: --heparin gtt next lab draw at 1030- at therapeutic level --continue to assess pain level and offer pain med Q4 hrs --per providers, she will be here for about one more week for ongoing diuresing Pt is requesting a cardiac chair so she can get OOB andoff - Rachel Calderon RN - 11/19/2015 2:05 AM PDTNursing Handoff Patient Daily Goal: sleep (11/18/152157) Patient Specific Preferences: 1 (11/16/152223) [facility] IP NURSE HANDOFF: [place] hospital course events: Possible cellulitis and weight gain thou ght to be 2/2 decompensated heart failure. New dx HF. Found to have LLE DVT (painful) on hep diana drip. Hx: morbid obesity, T2 DM, HTN, OHS, hypothyroidism SAFETY Patient Target: Elzbieta will ambulate x4 daily Progress to Target: Improving As evidenced by: Elzbieta continues to ambulate to the bathroom. Her get up and go and edge of bed assessment reveal that she has adequate strength and stability to adequately do so. Will need to encou rage her to walk around unit as tolerated so that she continues to progress with no evidence of decline. Elzbieta walked to the bathroom x1 this shift. Needs encouragement to walk in h alls 2/2 anxiety. COMFORT/ANXIETY/BEHAVIOR Patient Target: Elzbieta will have decreased anxiety about being off heparin gtts Progress to Target: Improving As evidenced by: Elzibeta was very anxious about being taken off the heparin drip yesterday. She voiced conc [place] this shift that she might get another clot however, she was not visibly anxious and ciera ined calm while discussing her current health needs. Despite the fact that her blood is now therapeutic we still closely monitor for complications while come up with a safe plan for D C home. We discussed ways to prevent clots including frequent ambulation, dietary restricti ons with medications, and following up with PCP for blood monitoring after DC. RESTORATIVE MEASURES/SELF-MANAGEMENT Patient Target: Elzbieta will ask how much fluid she has remaining of her 2L / day restriction each time she request fluids. She will voice understanding of HF teaching. Progress to Target: Improving As evidenced by: Elzbieta is actively engaged in monitoring her fluid intake and understands it's importance in CHF. She asks regularly when requesting fluids what her remainder is and set up a distri bution plan with staff this shift. Stayed within her FR today. She verbalized understandin g of HF teaching including daily weights, using the HF charts for red/yellow/green days, mon itoring her diet/fluids, and getting exercise to prevent new clots. NURSING ASSESSMENT & RECOMMENDATIONS FORWARD Nursing Assessment of Patient Stability Risk: Moderately stable Recommendations Forward: --continue to assess pain level and offer pain med Q4 hrs --per providers, she will be here for about 3-5 more days for ongoing diuresis, and complet ion of Rt Heart Cath once euvolemic - Pt is requesting a cardiac chair so she can get OOB andoff - Johnathan Heard RN - 11/18/2015 5:30 PM PDTNursing Handoff Patient Daily Goal: shower, ambulate (11/18/15 0802) Patient Specific Preferences: 1 (11/16/15 3833) [facility] IP NURSE HANDOFF: [place] hospital course events: Possible cellulitis and weight gain thou ght to be 2/2 decompensated heart failure. New dx HF. Found to have LLE DVT (painful) on hep diana drip. Hx: morbid obesity, T2 DM, HTN, OHS, hypothyroidism SAFETY Patient Target: Elzbieta will ambulate x4 during this shift Progress to Target: Improving As evidenced by: Elzbieta continues to ambulate to the bathroom. Her get up and go and edge of bed assessment reveal that she has adequate strength and stability to adequately do so. Will need to encou rage her to walk around unit as tolerated so that she continues to progress with no evidenc e of decline. Elzbieta walked to the bathroom x5-6 and ambulate halls x1 this shift. COMFORT/ANXIETY/BEHAVIOR Patient Target: Elzbieta will have decreased anxiety about being off heparin gtts Progress to Target: Improving As evidenced by: Elzbieta was sobbing when informed that she's now stable enough to be off heparin gtts, angy id of "I'm gonna just get another blood clot". Elzbieta was reassured that being off the drip is a good news. Despite the fact that her blood is now therapeutic we still closely monitor for complications while come up with a safe plan for DC home. I also talked about self car e at home such as frequent ambulating, keep legs elevated while in bed, taking medication as directed, follow up with PCP & anticoagulant clinic, ect. Elzbieta remains calm for the rest of the day. RESTORATIVE MEASURES/SELF-MANAGEMENT Patient Target: Elzbieta will ask how much flud she has remaining of her 2L / day restriction each time she request fluids Progress to Target: Improving As evidenced by: Elzbieta is actively engaged in monitoring her fluid intake and understands it's importance in CHF. She asks regularly when requesting fluids what her remainder is and set up a distri bution plan with staff this shift. Stayed within her FR 11/14 NURSING ASSESSMENT & RECOMMENDATIONS FORWARD Nursing Assessment of Patient Stability Risk: Moderately stable Recommendations Forward: --heparin gtt next lab draw at 1030- at therapeutic level --continue to assess pain level and offer pain med Q4 hrs --per providers, she will be here for about one more week for ongoing diuresing Pt is requesting a cardiac chair so she can get OOB andoff - Misa Titus RN - 11/18/2015 4:52 AM PDT Nursing Handoff Patient Daily Goal: Ensuring her input is correct (11/16/152223) Patient Specific Preferences: 1 (11/16/152223) [facility] IP NURSE HANDOFF: [place] hospital course events: Possible cellulitis and weight gain thou ght to be 2/2 decompensated heart failure. New dx HF. Found to have LLE DVT (painful) on hep diana drip. Hx: morbid obesity, T2 DM, HTN, OHS, hypothyroidism SAFETY Patient Target: Elzbieta will ambulate x1 this shift Progress to Target: No Change As evidenced by: Elzbieta continues to ambulate to the bathroom. Her get up and go and edge of bed assessment reveal that she has adequate strength and stability to adequately do so. Elzbieta had a steady gait while ambulating to the bathroom with a SBA but did not walk around the unit this shif t. Will need to encourage her to walk around unit as tolerated so that she continues to pro maxwell with no evidence of decline. COMFORT/ANXIETY/BEHAVIOR Patient Target: Elzbieta's pain will be controlled by rating <6/10 and will b donna to get >6 hours of sleep As evidenced by: Elzbieta rated pain at 8/10 last night and this morning but was able to get a good nights sl eep. RESTORATIVE MEASURES/SELF-MANAGEMENT Patient Target: Elzbieta will ask how much flud she has remaining of her 2L / day restriction each time she request fluids Progress to Target: Improving As evidenced by: Elzbieta is actively engaged in monitoring her fluid intake and understands it's importance in CHF. She asks regularly when requesting fluids what her remainder is and set up a distri bution plan with staff this shift. NURSING ASSESSMENT & RECOMMENDATIONS FORWARD Nursing Assessment of Patient Stability Risk: Moderately stable Recommendations Forward: --heparin gtt next lab draw at 0500 on 11/18- Pt at therapeutic lev el --continue to assess pain level and offer pain med Q4 hrs --per providers, she will be here for about one more week for ongoing diuresing Pt is requesting a cardiac chair so she can get OOB andoff - Alanna Heard RN - 11/17/2015 5:59 PM PDTNursing Handoff Patient Daily Goal: Ensuring her input is correct (11/16/152223) Patient Specific Preferences: 1 (11/16/152223) [facility] IP NURSE HANDOFF: [place] hospital [facility] events: Possible cellulitis and weight gain thou ght to be 2/2 decompensated heart failure. New dx HF. Found to have LLE DVT (painful) on hep diana drip. Hx: morbid obesity, T2 DM, HTN, OHS, hypothyroidism SAFETY Patient Target: Elzbieta will ambulate x4 during this shift Progress to Target: Improving As evidenced by: Elzbieta continues to ambulate to the bathroom. Her get up and go and edge of bed assessment reveal that she has adequate strength and stability to adequately do so. Will need to encou rage her to walk around unit as tolerated so that she continues to progress with no evidenc e of decline. Elzbieta walked to the bathroom x5-6 this shift but did not walk around the uni t. RESTORATIVE MEASURES/SELF-MANAGEMENT Patient Target: Elzbieta will ask how much flud she has remaining of her 2L / day restriction each time she request fluids Progress to Target: Improving As evidenced by: Elzbieta is actively engaged in monitoring her fluid intake and understands it's importance in CHF. She asks regularly when requesting fluids what her remainder is and set up a distri bution plan with staff this shift. Stayed within her FR 11/14 NURSING ASSESSMENT & RECOMMENDATIONS FORWARD Nursing Assessment of Patient Stability Risk: Moderately stable Recommendations Forward: --heparin gtt next lab draw at 1030- at therapeutic level --continue to assess pain level and offer pain med Q4 hrs --per providers, she will be here for about one more week for ongoing diuresing Pt is requesting a cardiac chair so she can get OOB avio - Jana Noguera RN - 11/16/2015 7:02 PM PDTNursing Handoff Patient Daily Goal: Elzbieta would like to have a chair to sit up in today (11/16/15 073 8) Patient Specific Preferences: Skin care in the afternoon (11/16/15 0738) [facility] IP NURSE HANDOFF: [facility] [place] [facility] events: >> Presents with severe YO, 100 lb unintended weight gain, found to have a LLE DVT, new RV dysfunction and anasarca >> Hx: obesity, DM2, AMARA RESTORATIVE MEASURES/SELF-MANAGEMENT Patient Target: Elzbieta will weigh herself in AM and manage her 2L FR Progress to Target: Improving As evidenced by: Elzbieta weighed herself this AM and has been managing her FR very closely. NURSING ASSESSMENT & RECOMMENDATIONS FORWARD Nursing Assessment of Patient Stability Risk: Moderately unstable Recommendations Forward: >> K+ 2.7 this AM, replaced PO and IV this shift Sheree Frye RN - 11/16/2015 5:56 AM PDT Nursing Handoff Patient Daily Goal: Wants to do her abdmonimal fold care in the afternoon (11/15/15 1 000) Patient Specific Preferences: n/a (11/14/15 0800) [facility] IP NURSE HANDOFF: [facility] [place] [facility] events: Possible cellulitis and weight gain thou ght to be 2/2 decompensated heart failure. New dx HF. Found to have LLE DVT (painful) on hep diana drip. Hx: morbid obesity, T2 DM, HTN, OHS, hypothyroidism SAFETY Patient Target: Elzbieta will ambulate x4 during this shift Progress to Target: No Change As evidenced by: Elzbieta continues to ambulate to the bathroom. Her get up and go and edge of bed assessment reveal that she has adequate strength and stability to adequately do so. Will need to encou rage her to walk around unit as tolerated so that she continues to progress with no evidenc e of decline. Elzbieta walked to the bathroom x5-6 this shift but did not walk around the uni t. RESTORATIVE MEASURES/SELF-MANAGEMENT Patient Target: Elzbieta will ask how much flud she has remaining of her 2L / day restriction each time she request fluids Progress to Target: Improving As evidenced by: Elzbieta is actively engaged in monitoring her fluid intake and understands it's importance in CHF. She asks regularly when requesting fluids what her remainder is and set up a distri bution plan with staff this shift. Stayed within her FR 11/14 NURSING ASSESSMENT & RECOMMENDATIONS FORWARD Nursing Assessment of Patient Stability Risk: Moderately stable Recommendations Forward: --heparin gtt next lab draw at 1030- at therapeutic level --continue to assess pain level and offer pain med Q4 hrs --per providers, she will be here for about one more week for ongoing diuresing Pt is requesting a cardiac chair so she can get OOB andoff - Andrew, Kam man RN - 11/15/2015 6:49 PM PDTNursing Handoff Patient Daily Goal: Wants to do her abdmonimal fold care in the afternoon (11/15/15 1 000) Patient Specific Preferences: n/a (11/14/15 0800) [facility] IP NURSE HANDOFF: [facility] [place] [facility] events: Elzbieta is 40 yrs old female with hx of mo rbid obesity, T2 DM, HTN, OHS, hypothyroidism; presented to endocrine clinic where there was concern for cellulitis and weight gain thought to be 2/2 decompensated heart failure, was r eferred to the ED. New dx HF. Found to have LLE DVT (painful) on heparin drip bridging to w arfarin. SAFETY Patient Target: Elzbieta will ambulate in the room x6 this shift and will sit up in the chair this shift. Progress to Target: Improving As evidenced by: Elzbieta continues to ambulate to the bathroom >5x per day. Her get up and go and edge of be d assessment reveal that she has adequate strength and stability to adequately do so. Elzbieta got up in the chair for lunch and sat up for 2 hours. Elzbieta is not comfortable waking aroun d unit, she does not want to walk around with all the staff on the floor, feels anxious abou t all the people. She continues to progress with no evidence of decline. RESTORATIVE MEASURES/SELF-MANAGEMENT Patient Target: Elzbieta will ask how much flud she has remaining of her 2L / day restriction each time she request fluids Progress to Target: Improving As evidenced by: Elzbieta is actively engaged in monitoring her fluid intake and understands it's importance in CHF. She asks regularly when requesting fluids what her remainder is and set up a distri bution plan with staff this shift. NURSING ASSESSMENT & RECOMMENDATIONS FORWARD Nursing Assessment of Patient Stability Risk: Moderately stable Recommendations Forward: --heparin gtt stable, next draw with morning labs, bridging to [facility] --continue to assess pain level and offer pain med Q4 hrs --no discharge until next week, continues to diureses with IV lasix --strick I/O Arianne - Lanette Nolan RN - 11/15/2015 3:31 AM PDTNursing Handoff Patient Daily Goal: Shower today (11/14/15 0800) Patient Specific Preferences: n/a (11/14/15 08) [facility] IP NURSE HANDOFF: [place] [facility] events: Elzbieta is 40 yrs old female with hx of mo rbid obesity, T2 DM, HTN, OHS, hypothyroidism; presented to endocrine clinic where there was concern for cellulitis and weight gain thought to be 2/2 decompensated heart failure, was r eferred to the ED. New dx HF. Found to have LLE DVT (painful) on heparin drip. SAFETY Patient Target: Elzbieta will ambulate during this shift Progress to Target: Improving As evidenced by: Elzbieta continues to ambulate to the bathroom. Her get up and go and edge of bed assessment reveal that she has adequate strength and stability to adequately do so. Will need to encou rage her to walk around unit as tolerated so that she continues to progress with no evidenc e of decline. NURSING ASSESSMENT & RECOMMENDATIONS FORWARD Nursing Assessment of Patient Stability Risk: Moderately stable Recommendations Forward: --heparin gtt at 32.5 ml/hr, has reach goal twice. Hep drawn this AM. Still awaiting result. --continue to assess pain level and offer pain med Q4 hrs --per providers, she will be here for about one more week for ongoing diuresing andoff - Lolita Noguera RN - 11/14/2015 11:26 AM PDTNursing Handoff Patient Daily Goal: Shower today (11/14/15 0800) Patient Specific Preferences: n/a (11/14/15 08) [facility] IP NURSE HANDOFF: [facility] [place] [facility] events: >> presented with severe YO, 100 lb unintended weight gain and bilat LE pain and erythema, found to have a LLE DVT, new HF >> 1930 heparin therapeutic, running at 3250unit/hr. Second therapeutic draw, per order rec heck in AM >> Have not charted the fluids on the [employer] at bedside HYGIENE/INFECTION Patient Target: Elzbieta will recieve her TYESHA bath this shift Progress to Target: Improving As evidenced by: Elzbieta showered and received her TYESHA bath NURSING ASSESSMENT & RECOMMENDATIONS FORWARD Nursing Assessment of Patient Stability Risk: Moderately unstable Recommendations Forward: Continue with above lan of Care - Michaelle Asher RN - 11/14/2015 8:15 AM PDTProblem: Case Management Goals Goal: Discharge Needs Met Case Management Review Pt assessed via chart review, history, family, patient, or multiple team members as appropr iate/available. No need for discharge planning assistance from [facility] Nurse Care Management a nticipated at this time. Please see MD notes, After Visit Summary (discharge instructions), and any additional ancillary consultation notes for further discharge needs or f/u needs P lease notify CM if any RN Care Management d/c needs arise. KELSIE Braswellhand bander RN Inpatient Care Management [address] General Medicine [phone] Pager [phone] andamy - Cesario Kaur RN - 11/14/2015 3:10 AM PDTNursing Handoff Patient Daily Goal: To go for a walk today (11/13/15 0900) Patient Specific Preferences: Ordered meal. Took shower today. (11/08/151950) [facility] IP NURSE HANDOFF: [facility] [place] [facility] events: Elzbieta is 40 yrs old female with hx of mo rbid obesity, T2 DM, HTN, OHS, hypothyroidism; presented to endocrine clinic where there was concern for cellulitis and weight gain thought to be 2/2 decompensated heart failure, was r eferred to the ED. New dx HF. Found to have LLE DVT (painful) on heparin drip. SAFETY Patient Target: Elzbieta will continue to ambulate multiple times during this shift Progress to Target: Improving As evidenced by: Elzbieta continues to ambulate to the bathroom multiple times. Her get up and go and edge of bed assessment reveal that she has adequate strength and stability to adequately do so. Wi ll need to encourage her to walk around unit as tolerated so that she is continues to progre ss with no evidence of decline. HYGIENE/INFECTION Patient Target: Elzbieta's skin will continue to remain clean, dry and intact. Progress to Target: Improving As evidenced by: Elzbieta continues to have evidence of yeast in her skin folds but takes daily showers/CHG b aths( pt has picc line). Pillow cases and nystatin have assisted in decreasing the rash, re dness and overall appearance of her skin. Her left lower leg has some redness. Continue to m onitor. Progress to Target: Improving NURSING ASSESSMENT & RECOMMENDATIONS FORWARD Nursing Assessment of Patient Stability Risk: Moderately stable Recommendations Forward: --heparin gtt at 32.5 ml/hr, next check will be at 1200pm. --continue assess pain level and offer pain med Q4 hrs -per providers, she will be here for about one more week for ongoing diuresing andoff - Kimber Aburto RN - 11/13/2015 6:29 PM PDTNursing Handoff Patient Daily Goal: To go for a walk today (11/13/15 0900) Patient Specific Preferences: Ordered meal. Took shower today. (11/08/151950) [facility] IP NURSE HANDOFF: [facility] [place] [facility] events: Elzbieta is 40 yrs old female with hx of mo rbid obesity, T2 DM, HTN, OHS, hypothyroidism; presented to endocrine clinic where there was concern for cellulitis and weight gain thought to be 2/2 decompensated heart failure, was r eferred to the ED. New dx HF. Found to have LLE DVT (painful) on heparin drip. SAFETY Patient Target: Elzbieta will continue to ambulate multiple times during this shift Progress to Target: Improving As evidenced by: Elzbieta continues to ambulate to the bathroom multiple times during the day. Her get up and go and edge of bed assessment reveal that she has adequate strength and stability to adequa tely do so. Will need to encourage her to walk around unit as tolerated so that she is cont inues to progress with no evidence of decline. Elzbieta walked around the unit x 1 today and go t short of breath near the end and needed to sit down and catch her breath. Continue to enc ourage ambulation but ensure that there is a place for her to sit until she has built up her endurance. HYGIENE/INFECTION Patient Target: Elzbieta's skin will continue to remain clean, dry and intact. Progress to Target: Improving As evidenced by: Elzbieta continues to have evidence of yeast in her skin folds but takes daily showers/CHG b aths. Pillow cases and nystatin have assisted in decreasing the rash, redness and overall a ppearance of her skin. Her left lower leg has some redness. Continue to monitor. Progress to Target: Improving NURSING ASSESSMENT & RECOMMENDATIONS FORWARD Nursing Assessment of Patient Stability Risk: Moderately stable Recommendations Forward: --heparin gtt at 34.5 ml/hr, has reach goal twice, next check will be tomorrow am. --continue assess pain level and offer pain med Q4 hrs -per providers, she will be here for about one more week for ongoing diuresing andoff - Niranjan Nolan RN - 11/13/2015 3:07 AM PDTNursing Handoff Patient Daily Goal: To have a normal sleep apnea test tonight (11/10/152099) Patient Specific Preferences: Ordered meal. Took shower today. (11/08/151950) [facility] IP NURSE HANDOFF: [facility] [place] [facility] events: Elzbieta is 40 yrs old female with hx of mo rbid obesity, T2 DM, HTN, OHS, hypothyroidism; presented to endocrine clinic where there was concern for cellulitis and weight gain thought to be 2/2 decompensated heart failure, was r eferred to the ED. New dx HF. Found to have LLE DVT (painful) on heparin drip. SAFETY Patient Target: Elzbieta will continue to ambulate multiple times during this shift Progress to Target: Improving As evidenced by: Elzbieta continues to ambulate to the bathroom. Her get up and go and edge of bed assessment reveal that she has adequate strength and stability to adequately do so. Will need to encou rage her to walk around unit as tolerated so that she is continues to progress with no evide nce of decline. HYGIENE/INFECTION Patient Target: Gisellas skin will continue to remain clean, dry and intact. Progress to Target: Improving As evidenced by: Elzbieta continues to have evidence of yeast in her skin folds but takes daily showers/CHG b aths. Pillow cases and nystatin have assisted in decreasing the rash, redness and overall ap pearance of her skin. NURSING ASSESSMENT & RECOMMENDATIONS FORWARD Nursing Assessment of Patient Stability Risk: Moderately stable Recommendations Forward: --heparin gtt at 34.5 ml/hr, has reach goal twice, next check will be tomorrow AM. --continue to assess pain level and offer pain med Q4 hrs --per providers, she will be here for about one more week for ongoing diuresing andoff - Monica Aburto RN - 11/12/2015 6:50 PM PDTNursing Handoff Patient Daily Goal: To have a normal sleep apnea test tonight (11/10/152099) Patient Specific Preferences: Ordered meal. Took shower today. (11/08/151950) [facility] IP NURSE HANDOFF: [facility] [place] [facility] events: Elzbieta is 40 yrs old female with hx of mo rbid obesity, T2 DM, HTN, OHS, hypothyroidism; presented to endocrine clinic where there was concern for cellulitis and weight gain thought to be 2/2 decompensated heart failure, was r eferred to the ED. New dx HF. Found to have LLE DVT (painful) on heparin drip. SAFETY Patient Target: Elzbieta will continue to ambulate multiple times during this shift Progress to Target: Improving As evidenced by: Elzbieta continues to ambulate to the bathroom multiple times during the day. Her get up and go and edge of bed assessment reveal that she has adequate strength and stability to adequa tely do so. Will need to encourage her to walk around unit as tolerated so that she is cont inues to progress with no evidence of decline. HYGIENE/INFECTION Patient Target: Gisellas skin will continue to remain clean, dry and intact. Progress to Target: Improving As evidenced by: Elzbieta continues to have evidence of yeast in her skin folds but takes daily showers/CHG b aths. Pillow cases and nystatin have assisted in decreasing the rash, redness and overall a ppearance of her skin. Progress to Target: Improving NURSING ASSESSMENT & RECOMMENDATIONS FORWARD Nursing Assessment of Patient Stability Risk: Moderately stable Recommendations Forward: --heparin gtt at 34.5 ml/hr, has reach goal twice, next check will be tomorrow am. --continue assess pain level and offer pain med Q4 hrs -per providers, she will be here for about one more week for ongoing diuresing andoff - Fawn Gallegos R N - 11/12/2015 5:25 AM PDTNursing Handoff Patient Daily Goal: To have a normal sleep apnea test tonight (11/10/152099) Patient Specific Preferences: Ordered meal. Took shower today. (11/08/151950) [facility] IP NURSE HANDOFF: [facility] [place] [facility] course events: Elzbieta is 40 yrs old female with hx of mo rbid obesity, T2 DM, HTN, OHS, hypothyroidism; presented to endocrine clinic where there was concern for cellulitis and weight gain thought to be 2/2 decompensated heart failure, was r eferred to the ED. New dx HF. Found to have LLE DVT (painful) on heparin drip. COMFORT/ANXIETY/BEHAVIOR Patient Target: Elzbieta will have tolerable pain level below 3 this shift. Progress to Target: Improving As evidenced by: Gisellas leg pain has been 7/10 intermittently this shift, especially when she get out of bed and took a shower. She has been getting pain medication Q4 hours. She seem comfortable when sitting at the edge of bed. Mainly complained of left groin pain at night 8/10 before and after urination, UA sent, still waiting for the result. Pain seem to be better as the night progress, patient only asked for pain medication once in my shift. HYGIENE/INFECTION Patient Target: Elzbieta will not have worsening of skin breakdown. Progress to Target: Improving As evidenced by: Elzbieta has erythema of skin, fungal rash between fold of ABD, R>L. She stated this is her baseline. Nystatin powder applied to skin folds. Showered today with tyesha wipe. Will con tinue to make sure skin is dry and clean between fold and put pillow case between folds. Sk in problem at the folds has improved. Please continue to do the above measure, it is very e ffective. RESTORATIVE MEASURES/SELF-MANAGEMENT Patient Target: Bonnie will continue to ambulate to the bathroom and maybe start ambulate at the hallways As evidenced by: Patient has been ambulate in the room without assistance. She has continue to gain more strength. Might be a good idea to have patient walk around the hallway today. HEALTH PROMOTION Patient Target: Elzbieta will follow HF treatment regimen. Progress to Target: Improving As evidenced by: Elzbieta was very anxious this am because she gain weights today. Reassure her that the rachid ght was wrong from yesterday. She is doing all the things for HF, such as, following fluid restriction, ordering low sodium foods. Educated patient again tonight and give patient ra ssurance that she is doing a good job. NURSING ASSESSMENT & RECOMMENDATIONS FORWARD Nursing Assessment of Patient Stability Risk: Moderately stable Recommendations Forward: --heparin gtt at 34.5 ml/hr, has reach goal twice, next check will be tomorrow am. --continue assess pain level and offer pain med Q4 hrs --Miralax given last night, still don't have a BM yet, please make sure patient has a BM to day. Last BM was on 11/10/15. andoff - Mac Gallegos RN - 11/11/2015 6:31 PM PDTNursing Handoff Patient Daily Goal: To have a normal sleep apnea test tonight (11/10/15 2100) Patient Specific Preferences: Ordered meal. Took shower today. (11/08/151950) [facility] IP NURSE HANDOFF: [facility] [place] [facility] events: Elzbieta is 40 yrs old female with hx of mo rbid obesity, T2 DM, HTN, OHS, hypothyroidism; presented to endocrine clinic where there was concern for cellulitis and weight gain thought to be 2/2 decompensated heart failure, was r eferred to the ED. New dx HF. Found to have LLE DVT (painful) on heparin drip. COMFORT/ANXIETY/BEHAVIOR Patient Target: Elzbieta will have tolerable pain level below 3 this shift. Progress to Target: No Change As evidenced by: Gisellas leg pain has been 7/10 intermittently this shift, especially when she get out of bed and took a shower. She has been getting pain medication Q4 hours. She seem comfortable when sitting at the edge of bed. HYGIENE/INFECTION Patient Target: Elzbieta will not have worsening of skin breakdown. Progress to Target: No Change As evidenced by: Elzbieta has erythema of skin, fungal rash between fold of ABD, R>L. She stated this is her baseline. Nystatin powder applied to skin folds. Showered today with tyesha wipe. Will con tinue to make sure skin is dry and clean between fold and put pillow case between folds. HEALTH PROMOTION Patient Target: Elzbieta will follow HF treatment regimen. Progress to Target: Improving As evidenced by: Elzbieta was very anxious this am because she gain weights today. Reassure her that the rachid ght was wrong from yesterday. She is doing all the things for HF, such as, following fluid restriction, ordering low sodium foods. NURSING ASSESSMENT & RECOMMENDATIONS FORWARD Nursing Assessment of Patient Stability Risk: Moderately stable Recommendations Forward: --heparin gtt at 34.5 ml/hr, next heparin level check at 0 --continue assess pain level and offer pain med Q4 hrs --New left groin pain when urinates, paged. Needs urine sample and new hat in the bathr oom. andoff - Fawn Gallegos RN - 11/11/2015 6:46 AM PDTNursing Handoff Patient Daily Goal: To have a normal sleep apnea test tonight (11/10/152099) Patient Specific Preferences: Ordered meal. Took shower today. (11/08/151950) [facility] IP NURSE HANDOFF: [facility] events: Elzbieta is a 40 years old female with hx o f morbid obesity, T2 DM, HTN, OHS, hypothyroidism; presented to endocrine clinic where ther e was concern for cellulitis and weigh gain thought to be 2/2 decompensated heart failure, w as referred to the ED. New dx HF. Found to have LLE DVT(painful) on heparin drip. COMFORT/ANXIETY/BEHAVIOR Patient Target: Elzbieta will have tolerable pain level below 3 this shift. Progress to Target: No Change As evidenced by: Gisellas leg pain has been 7/10 this shift. She has been getting pain medication every 4 hours. However, she ambulated with PT outside of her room once and has been able to ambulat e to bathroom to void and took a shower. HYGIENE/INFECTION Patient Target: Elzbieta will not have worsening of skin breakdown. Progress to Target: No Change As evidenced by: Elzbieta has erythema of skin, fungal rash between folds of abd, R>L. She stated this is ba seline for her. Nystatin powder applied to skin folds. Showered today with tyesha wipe. Sk in is getting better, continue to do that. Abdominal sling is in the room to help with bett er lifting of the pannus so the nystatin can be applied better. HEALTH PROMOTION Patient Target: Elzbieta will follow HF treament regimen. Progress to Target: Improving As evidenced by: Elzbieta is following fluid restriction. She is able to state which foods are high in sodiu m and what to avoid eating. She also weights herself every morning. NURSING ASSESSMENT & RECOMMENDATIONS FORWARD Nursing Assessment of Patient Stability Risk: Moderately stable Recommendations Forward: --MD order overnight O2 sat study vis RT, study was done last nigh t --Heparin gtt at 32.5 ml/hr, it is at goal, next check will be at noon, if still at goal, t hen the check will be next morning. --continue assess pain level and offer pain med Q4 hrs. andoff - Mac Gallegos RN - 11/10/2015 5:28 PM PDTNursing Handoff Patient Daily Goal: sleep (11/09/152048) Patient Specific Preferences: Ordered meal. Took shower today. (11/08/151950) [facility] IP NURSE HANDOFF: [place] [facility] hospital course events: Elzbieta is a 40 years old female with hx o f morbid obesity, T2 DM, HTN, OHS, hypothyroidism; presented to endocrine clinic where ther e was concern for cellulitis and weigh gain thought to be 2/2 decompensated heart failure, w as referred to the ED. New dx HF. Found to have LLE DVT(painful) on heparin drip. COMFORT/ANXIETY/BEHAVIOR Patient Target: Elzbieta will have tolerable pain level below 3 this shift. Progress to Target: No Change As evidenced by: Elzbieta's leg pain has been 7/10 this shift. She has been getting pain medication every 4 hours. However, she ambulated with PT outside of her room once and has been able to ambulat e to bathroom to void and took a shower. HYGIENE/INFECTION Patient Target: Elzbieta will not have worsening of skin breakdown. Progress to Target: No Change As evidenced by: Elzbieta has erythema of skin, fungal rash between folds of abd, R>L. She stated this is ba seline for her. Nystatin powder applied to skin folds. Showered today with tyesha wipe. HEALTH PROMOTION Patient Target: Elzbieta will follow HF treament regimen. Progress to Target: Improving As evidenced by: Elzbieta is following fluid restriction. She is able to state which foods are high in sodiu m and what to avoid eating. She also weights herself every morning. NURSING ASSESSMENT & RECOMMENDATIONS FORWARD Nursing Assessment of Patient Stability Risk: Moderately stable Recommendations Forward: --MD order overnight O2 sat study vis RT, please follow up on that --Heparin gtt at 30.5 ml/hr, next heparin level at 2030 tonight --continue assess pain level and offer pain med Q4 hrs. lan of Care - Du Adams, PT - 11/10/2015 1:17 PM PDTFormatting of this note might be different from the [facility]vin [facility] Physical Therapy Evaluation 11/10/2015 1:17 PM Pt was seen on 14c for PT today. Hospital day: 4 Brief Hospital Course: Pt is a 40 yo female w/ a pmh of morbid obesity, T2 DM, HTN, OHS, hypothyroidism; presented to endocrine clinic where there was concern for celllulitis and we ight gain thought to be 2/2 decompensated heart failure, was referred to the ED. New dx HF. Found to have LLE DVT (painful), on heparin drip. Relevant Precautions: none Indication for Physical Therapy Evaluation: Mobility, activity modification, and home exerc ise program training/education following decline in safe independent functional mobility sec ondary to medical diagnosis/procedure/treatment during this hospitalization. Past Medical History Diagnosis Date Neck pain Insomnia Allergic rhinitis Lymphedema Diverticulitis of colon Hemorrhoids UTI (urinary tract infection) Tinea corporis Osteoarthritis of knee TIA (transient ischemic attack) due to Bromocriptine Myalgia and myositis Bipolar disorder ([facility]) Depression Staphylococcal infection Anemia Chronic wound infection of abdomen ([facility]) from 2010 Morbid obesity with body mass index of 70 and over in adult ([facility]) Incisional hernia, incarcerated 2012 Hernia of abdominal wall Stroke ([facility]) Dizziness Numbness Heart burn Nausea Abdominal pain [...] Dr. Andie Brian Incisional hernia repair 03/01/2015 [facility]/ Dr. Cantu. Primary fascial closure and scar excision Subjective: Pt awake and agreeable to therapy. Living Environment: Pt lives with mother and sister. Sister is pt's designated caregiver. 8 steps to enter with 1 railing. Prior Level of Function: Pt receives help getting to and from grocery store but goes shoppi ng with sister, using a scooter. She was taking water aerobics before this episode. She does her own laundry, bathing, dressing, except her mom helps her put powder on her panus. She i s being evaluated for bariatric surgery. Patient / Family Goal: To get more exercise, to DC home, to get bariatric surgery. Communication: intact Barriers: none Pain: Pt reports her lower extremity pain is managed. Vital signs: No signs/symptoms of abnormal vitals. Pt's HR in the 120s following ambulation . Cognitive Screen Level of alertness: Alert Orientation: intact Quality of responses: appropriate to situation Command following: good Judgment / safety awareness: good Physical Assessment ROM: BUE and BLE WFL, as observed through function Strength: BUE and BLE not formally tested, however at least 3/5 as observed through functi on Edema: none noted Skin Integrity: intact where observed Neurological Function Sensation: not assessed Muscle Tone: not assessed Proprioception: not assessed Gross Motor: intact, through observation Fine Motor: not assessed Balance: Pt independent with all static and dynamic sitting and standing balance without as sistive device. Mobility & Transfers: Pt independent with sit<>stand without assistive device. Bed mobility and supine<>sit not observed. Gait: Pt ambulated 150ft without assistive device, without break. Pt reports feeling somewh at winded after, and was able to speak 5-10 words before requiring a breath. Pt reports this exercise was a 6/10 RPE. [facility] BASIC MOBILITY Difficulty turning over in bed 3 - A Little - Minimal/Contact Guard Assist/Supervision Difficulty sitting/standing from chair w/ arms 4 - None - Modified Independent/ Independent Difficulty moving from supine to sitting on edge of bed 3 - A Little - Minimal/contact Guar d Assist/Supervision Help needed moving from /to chair/wheelchair 3 - A Little - Minimal/Contact Guard Assist/S upervision Help needed walking in hospital room 4 - None - Modified independent/Independent Help needed climbing 3-5 steps w/railing 4 - None - Modified Independent/Independent [facility] Basic Mobility Total Score 21 *Note: activity was not directly observed and scoring is based on skills and deficits [facility] Interpretation of [facility] Short Form - Basic Mobility: CMS Modifier (G-Code) Score (in points) % of Functional Impairment, Limitation, or Restriction CN 6 100% impaired, limited, restricted CM 7-9 At least 80%, but less than 100% impaired, limited, or restricted CL 10-14 At least 60%, but less than 80% impaired, limited, or restricted CK 15-19 At least 40%, but less than 60% impaired, limited, or restricted CJ 20-22 At least 20%, but less than 40% impaired, limited, or restricted CI 23 At least 1%, but less than 20% impaired, limited, or restricted CH 24 0% impaired, limited, or restricted Treatment provided this date: Initial evaluation and assessment, safe mobility practice. Pt education on plan of care, role of PT, pt requested a [id number] plan. Pt educated on aiming for 3-5 RPE for 20-60min, and to aim for 5x/wk or more as tolerated. She was advi sed to continue water aerobics if possible, but that if walking was her goal to walk at 3-5 RPE for as long as possible, and then take a seated break, then return to walking, for 20-30 minutes. Pt educated on other signs she should stop and take a break (SOB, etc.). Ended session in sitting edge of bed with call light handy. ASSESSMENT: Pt demonstrates capacity to re-enter her home and return to ADLs. She has ample family support. She would benefit from continued exercise and outpatient PT to guide this p rocess. Recommendations: Discharge to home with assistance as needed. Pt would benefit from outpati ent PT referral. Activity Plan: Ambulate at least three times a day while inpatient. PLAN: DCPT The above plan of care and goals were developed and reviewed with the patient. Christian Adams, PT andoff - Fawn Gallegos R N - 11/10/2015 6:36 AM PDTNursing Handoff Patient Daily Goal: PICC (11/09/15 3195) Patient Specific Preferences: Ordered meal. Took shower today. (11/08/151950) [facility] IP NURSE HANDOFF: [facility] [place] [facility] hospital course events: Pt is a 40 yo female w/ a pmh of morbid obesity, T2 DM, HTN, OHS, hypothyroidism; presented to endocrine clinic where there was conc [place] for celllulitis and weight gain thought to be 2/2 decompensated heart failure, was refer red to the ED. New dx HF. Found to have LLE DVT (painful), on heparin drip. COMFORT/ANXIETY/BEHAVIOR Patient Target: Elzbieta will have decrease pain in her LLE Progress to Target: No Change As evidenced by: Elzbieta reports oxy generally effective but increased pain this afternoon after stepping do wn too hard from scale. Heat pack to knee and elevating helpful but incomplete relief. Prn n aproxen added to sep. Last pain medication at 23:34. HYGIENE/INFECTION Patient Target: Elzbieta will have no further skin breakdown Progress to Target: No Change As evidenced by: Has erythema of skin, fungal rash between folds of abd, R>L and pt states this is baselin e for her. Nystatin powder to folds. Last shower 11/07. RESTORATIVE MEASURES/SELF-MANAGEMENT Patient Target: Elzbieta will return to baseline with her care. Progress to Target: Improving As evidenced by: Patient reports that she is independent with most tasks, but uses a walker at home. Maura nunes provided to her on 14C. She states that she does have caregivers at home that help her wit h specific tasks such as skin are and trimming her toenails. HEALTH PROMOTION Patient Target: Elzbieta will understand and utilize HF tools available to her through [facility] with new HF diag nosis Progress to Target: Improving As evidenced by: HF packet given to Elzbieta and first weight recorded 11/07. Patient not interested in watchi ng videos. Continue to record daily weights. Now has her own scale in room (use walker for s afe boarding). NURSING ASSESSMENT & RECOMMENDATIONS FORWARD Nursing Assessment of Patient Stability Risk: Moderately unstable Recommendations Forward: - Continue to monitor for tachypnea or SOB. Remote pulse-ox overni ght - please confirm with tele that they are getting signal for this pt, team wants to watch for overnight desats. - Monitor for pain - Expected to remain in-house another week for continued diuresis. - Now has PICC LIONEL. Heparin gtt changed to 28.5 at 0610, next check at 1210. - On coumadin, remain on hep drip til INR at therapeutic level. andoff - Carli, Annalise Melendez RN - 11/09/2015 6:57 PM PDTNursing Handoff Patient Daily Goal: PICC (11/09/15 1515) Patient Specific Preferences: Ordered meal. Took shower today. (11/08/151950) [facility] IP NURSE HANDOFF: [facility] [place] [facility] hospital course events: Pt is a 40 yo female w/ a pmh of morbid obesity, T2 DM, HTN, OHS, hypothyroidism; presented to endocrine clinic where there was conc [place] for celllulitis and weight gain thought to be 2/2 decompensated heart failure, was refer red to the ED. New dx HF. Found to have LLE DVT (painful), on heparin drip. COMFORT/ANXIETY/BEHAVIOR Patient Target: Elzbieta will have decrease pain in her LLE Progress to Target: No Change As evidenced by: Elzbieta reports oxy generally effective but increased pain this afternoon after stepping do wn too hard from scale. Heat pack to knee and elevating helpful but incomplete relief. Prn n aproxen added to sep. HYGIENE/INFECTION Patient Target: Elzbieta will have no further skin breakdown Progress to Target: No Change As evidenced by: Has erythema of skin, fungal rash between folds of abd, R>L and pt states this is baselin e for her. Nystatin powder to folds. Last shower 11/07. RESTORATIVE MEASURES/SELF-MANAGEMENT Patient Target: Elzbieta will return to baseline with her care. Progress to Target: Improving As evidenced by: Patient reports that she is independent with most tasks, but uses a walker at home. Walke r provided to her on 14C. She states that she does have caregivers at home that help her wit h specific tasks such as skin are and trimming her toenails. HEALTH PROMOTION Patient Target: Elzbieta will understand and utilize HF tools available to her through [facility] with new HF diag nosis Progress to Target: Improving As evidenced by: HF packet given to Elzbieta and first weight recorded 11/07. Patient not interested in watchi ng videos. Continue to record daily weights. Now has her own scale in room (use walker for s afe boarding). NURSING ASSESSMENT & RECOMMENDATIONS FORWARD Nursing Assessment of Patient Stability Risk: Moderately unstable Recommendations Forward: - Continue to monitor for tachypnea or SOB. Remote pulse-ox overni ght - please confirm with tele that they are getting signal for this pt, team wants to watch for overnight desats. - Monitor for pain - Expected to remain in-house another week for continued diuresis. - Now has PICC LIONEL. When current bag of heparin completes, hang next bag on the PICC side ( new tubing). Unit draw for hep level q 24h (pt is at goal) and AM labs. - On coumadin, remain on hep drip til INR at therapeutic level. lan of Care - Lise Hayes i, PT - 11/09/2015 3:24 PM PDTPT contact note - New orders recieved. Chart reviewed. Attempted to see pt today for PT evaluation. Pt report s that she just got her lunch. Also reports some pain in the knee from jarring it today whil e trying to get up on the weighing scale. Asked this PT to come in later. Will follow up at a later time as able. Thanks, Lise Batista PT andoff - Fide Rodríguez RN - 11/09/2015 1:20 AM PDTNursing Handoff Patient Daily Goal: Eat my dinner and get some rest (11/08/151950) Patient Specific Preferences: Ordered meal. Took shower today. (11/08/151950) [facility] IP NURSE HANDOFF: [facility] hospital course events: Pt is a 40 yo female w/ a pmh of morbid obesity, T2 DM, HTN, OHS, hypothyroidism; presented to endocrine clinic where there was conc [place] for celllulitis and weight gain thought to be 2/2 decompensated heart failure and was re ferred to the ED. >>Found to have LLE DVT. Now on heparin drip. COMFORT/ANXIETY/BEHAVIOR Patient Target: Elzbieta will have decrease pain in her LLE Progress to Target: Improving As evidenced by: Elzbieta reports that pain at one point over the night increased. Dr notified and additional oxycodone 5 mg dose given. Patient able to rest after this. Extremity elevated during the n ight. HYGIENE/INFECTION Patient Target: Elzibeta will have no further skin breakdown Progress to Target: No Change As evidenced by: Assessment revealed erythema of skin (possibly fungal rash) between folds of R abd. Nysta tin powder to folds. Patient was able to take a shower today. RESTORATIVE MEASURES/SELF-MANAGEMENT Patient Target: Elzbieta will return to baseline with her care. Progress to Target: Improving As evidenced by: Patient reports that she is independent with most tasks, but uses a walker at home. Walke r provided to her on 14C. She states that she does have Caregivers at home that do help her with specific task, such as skin are and trimming her toenails. HEALTH PROMOTION Patient Target: Elzbieta will understand and utilize HF tools available to her through [facility] with new HF diag nosis Progress to Target: Improving As evidenced by: HF packet given to Elzbieta and first weight recorded yesterday. Patient was not interested in watching videos. Continue to record daily weights. NURSING ASSESSMENT & RECOMMENDATIONS FORWARD Nursing Assessment of Patient Stability Risk: Moderately unstable Recommendations Forward: - Continue to monitor for tachypnea or SOB - Monitor for pain -Continuous pulse ox. Heparin level released approx 0550 and phlebotomy called. Awaiting results. andoff - Jocelynn Alonzo RN - 11/08/2015 4:00 PM PDTNursing Handoff Patient Daily Goal: take a shower (11/08/15 0900) Patient Specific Preferences: none stated (11/08/15 09) [place] IP NURSE HANDOFF: [facility] hospital course events: Loreleisarca LLE DVT-on Heparin gtt Heart Failure DM2 Morbid Obesity SAFETY Patient Target: Elzbieta will ambulate to BR as needed Progress to Target: Improving As evidenced by: Elzbieta prefers to use BR, not commode. Edge of bed assessment and get up and go completed. She is calling for assistance and using the bariatric walker. Tolerating well Progress to Target: Improving HEALTH PROMOTION Patient Target: Elzbieta will continue with HF education, Progress to Target: Improving As evidenced by: She verbalized the importance of low sodium diet, continuing diuresis and proper nutritio n. She understands the need for daily weights and stated she does not have a scale. I paged Jordy Pearl to obtain a bariatric scale for her. She needs reinforcement with the zones. NURSING ASSESSMENT & RECOMMENDATIONS FORWARD Nursing Assessment of Patient Stability Risk: Moderately unstable Recommendations Forward: Continue HF teaching using the packet. She is not interested in wa tching videos. lan of Care - Dione Andre RD - 11/08/2015 11:48 AM PDTProblem: Nutrition Interventions Intervention: Nutrition Education Pt with new diagnosis of HF. Met with pt to provide verbal and written education using AND Heart Failure Nutrition Therapy guidelines.Instructed to aim for less than 2000 mg Na diet w ith fluid restriction from AND Nutrition Care Manual. Also provided recommended brand names of low Na soups, crackers, and frozen meals. Discussed foods to include vs foods to avoid in respects to sodium restriction per day & per meal. Pt receptive & agreeable. Pt does eat o ut once per week at local diner (usually choose a taco omelet or cheese burger with fries). Informed difficulty of following low sodium diet when eating out. Provided suggestions with ultimate goal to decrease eating out. She states Mom cooks low sodium and makes soups from s cratch. Expect fair compliance. Also reviewed diabetes meal planning. Encouraged to contact bariatric RD as pt was going through process for bariatric surgery MECHANICAL METER TESTER. Appetite and PO int americo are good. Following. Dione Andre RD,LD Pager# [phone] Phone: [phone] lan of Care - Michaelle Lyles RN - 11/08/2015 9:51 AM PDT Problem: Case Management Goals Goal: Discharge Needs Met Case Management Initial Assessment Reason for Admission: Anasarca [R60.1] Heart failure, unspecified (HCC) [I50.9] Cellulitis of left lower extremity [L03.116] DVT (deep venous thrombosis), left (HCC) [I82.402] Sepsis, due to unspecified organism (HCC) [A41.9], No admission procedures for hospital enc ounter. Extended Emergency Contact Information Primary Emergency Contact: KENNY PADILLA Address: [address] [place] [id number] Relation: Parent Secondary Emergency Contact: Ellie Vang Mobile Relation: Sibling Past Medical History Diagnosis Date Neck pain Insomnia Allergic rhinitis Lymphedema Diverticulitis of colon Hemorrhoids UTI (urinary tract infection) Tinea corporis Osteoarthritis of knee TIA (transient ischemic attack) due to Bromocriptine Myalgia and myositis Bipolar disorder (HCC) Depression Staphylococcal infection Anemia Chronic wound infection of abdomen (HCC) from 2010 Morbid obesity with body mass index of 70 and over in adult (HCC) Incisional hernia, incarcerated 2013 Hernia of abdominal wall Stroke (HCC) Dizziness Numbness Heart burn Nausea Abdominal pain Shortness of breath Pneumonia Cough Palpitations Kidney stone Leaking of urine Irregular periods Abnormal ThinPrep Pap test of vagina Leg sore Anxiety Glaucoma Lives With/Living Arrangement: parent(s), house per adult database. Pt reports to nursing that her younger sister assists her Family/Support system: Parents and sister very involved Functional Level Prior to Admission: Low functioning independent (some assist?) Insurance/Funding: MEDICAID [employer]YING [employer]ACHINE [employer] Equipment Currently used at Home/DME Provider: none per adult database Home Health/Infusion Agency: Transportation Available: family or friend will provide per adult database, Pt has a medica id transport benefit (would cover her and one family member) Case Management Assessment: Pt is not clinically stable for d/c. Unable to determine d/c needs at this time, seems likely that Pt could need SNF rehab at time of dc d/t low baseline and hospital course. CM will continue to follow. Please see MD notes, After Visit Summary (discharge instructions), and any additional ancillary consultation notes for any discharge needs or f/u needs not requiring CM intervention. KELSIE Braswellhand bander MICHAELLE CARROLL RN Inpatient Care Management [address] General Medicine [phone] Pager [phone] signed by Michaelle Carroll RN at 11/08/2015 1:43 PM PDTHandoff - Fdie Rodríguez RN - 11/08/2015 12:50 AM PDTNursing Handoff Patient Daily Goal: Get some sleep and take a shower in the morning (11/07/152331) Patient Specific Preferences: Cluster care. Get settled in new room. (11/07/152331) [facility] IP NURSE HANDOFF: [facility] [place] [facility] hospital course events: Pt is a 40 yo female w/ a pmh of morbid obesity, T2 DM, HTN, OHS, hypothyroidism; presented to endocrine clinic where there was conc [place] for celllulitis and weight gain thought to be 2/2 decompensated heart failure and was re ferred to the ED. >>Found to have LLE DVT. Now on heparin drip. COMFORT/ANXIETY/BEHAVIOR Patient Target: Elzbieta will express increase in pain and have decreased anxiety with transfer to [facility] from ED obs Progress to Target: Improving As evidenced by: On arrival, Elzbieta reported decreased LE pain as she was medicated prior to transfer. Pt r eported increased anxiety and requested PRN xanax which was helpful. HYGIENE/INFECTION Patient Target: Elzbieta will have no further skin breakdown Progress to Target: No Change As evidenced by: Assessment revealed erythema of skin (possibly fungal rash) between folds of R abd. Nysta tin powder ordered and applied. Elzbieta wishes to take a shower tomorrow as she reports not rodrigues ving one for several days. RESTORATIVE MEASURES/SELF-MANAGEMENT Patient Target: Elzbieta will return to baseline with her care. Progress to Target: Improving As evidenced by: Patient reports that she is independent with most tasks, but uses a walker at home. Walke r provided to her on [facility]. She states that she does have Caregivers at home that do help her with specific task, such as skin are and trimming her toenails. HEALTH PROMOTION Patient Target: Elzbieta will understand and utilize HF tools available to her through [facility] with new HF diag nosis Progress to Target: Improving As evidenced by: HF packet given to Elzbieta and first weight recorded. Patient states she will look over it tomorrow as it was late when she arrived to [facility]. Encouraged her to ask questions related to this new diagnosis. NURSING ASSESSMENT & RECOMMENDATIONS FORWARD Nursing Assessment of Patient Stability Risk: Moderately unstable Recommendations Forward: - Continue to monitor for tachypnea or SOB - Monitor for pain - Next heparin level check due approx 0800. - Continue HF education - Patient would like assistance with a shower during the day of 11/07. Phlebotomy called and ordered released approx 0700. D Teaching Notes - Joseph Minaya MD - 11/07/2015 12:21 AM PDTTeaching Note not needed as no resident involve d in the care of this patient. JOSEPH COX MD Department of Emergency Medicine [facility] ransfer Note - Deepthi Garcia FNP - 11/06/2015 12:14 PM PDTReferral from Endo Hx: morbid obesity (BMI 89) being prepared for bariatric surgery Coming to the ED with concern for decompensated HF Fluid in both legs, cellulitis in BLE on (was on two abx prior to ), DOEElectr onically signed by HILDA Cortez at 11/06/2015 12:17 PM PDTdocumented in this enco unter Plan of Treatment +--------+ + + + + | Date | Type | Specialty | Care Team | Description | +--------+ + + + + | 04/04/ | Telephone-S | Surgery | Orquidea Cristobal, | | | 2019 | cheduled | | BID WRITER [address] | | | | | | [place], [place] | | | | | | [phone] | | | | | | [phone] | | | | | | | [...] [facility] | [address] | [place], [place] | | | [place] [facility] | [address] | [address] | | | TESTS | | | [...] [facility] | [address] | [place] [address] | | | SERVICES, LYDIA | LESLY [...] [facility] | [address] | [place] [address] | | | SERVICES, CORE | PARK [...] | | | LABORATORY | | | CYMRAES | | | SERVICES, | | | [...] the MDRD equation recommended by the | [facility] | | National Kidney Disease [...] | + + + + + | [facility] | [address] | [place] [address] | | | LYDIA RANGEL | LESLY [...] (H) | 60 - 99 mg/dL | [facility] - | | | GLUCOSE, [...] [facility] | [address] | [place], [place] | | | [place]INT OF CARE | [address] | [address] | | | TESTS | | | [...] [facility] | [address] | [place], [place] | | | JUST[facility] DAWN OF [place] | [facility] | [address] | | | TESTS | | | | + + + + + CAPILLARY BLOOD GLUCOSE (NO CHG) POC (11/20/2015 1:18 PM PDT) + +---------+ [...] [facility] | [address] | [place], [place] | | | [facility] CARE | [facility] | [address] | | | TESTS | | | [...] (H) | 60 - 99 mg/dL | [facility] - | | | GLUCOSE, [...] [facility] | [address] | [place], [place] | | | [place] CARE | [address] | [address] | | | TESTS | | | [...] [facility] | [address] | [place], [place] | | | JUST[facility] DAWN OF [place] | [facility] | [address] | | | TESTS | | | [...] | + + + + + | [facility] | [address] | [place] [address] | | | SERVICES, LYDIA | LESLY [...] + | [facility] | [address] | [place] [address] | | | SERVICES, CORE | LESLY [...] [facility] | [address] | [place] [address] | | | SERVICES, CORE | LESLY [...] | | | LABORATORY | | | CYMRAES | | | SERVICES, | | | [...] + | [facility] | [address] | [place] [address] | | | SERVICES, CORE | LESLY [...] [facility] | [address] | [place] | | | [facility] CARE | [address] | [address] | | | TESTS | | | [...] [facility] | [address] | [place] | | | [facility]WN OF [facility] | [address] | [address] | | | TESTS | | | [...] | + + + + + | [facility] | [address] | [place] [address] | | | CLAIRE, LYDIA | PARK [...] 2.5 mg/dL | [facility] | | | JING | | | [...] | + + + + + | [facility] | [address] | [place] [address] | | | SERVICES, CORE | LESLY [...] | | | LABORATORY | | | CYMRAES | | | SERVICES, | | | [...] | + + + + + | [facility] | [address] | [place] [address] | | | SERVICES, CORE | LESLY [...] (H) | 60 - 99 mg/dL | [facility] - | | | GLUCOSE, [...] + + + | [facility] | [address] | [place], [place] | | | [place] [facility]ARE | [address] | [address] | | | TESTS | | | [...] [facility] | [address] | [place], [place] | | | [place] [facility] | [address] | [address] | | | TESTS | | | [...] [facility] | [address] | [place], [place] | | | [place] [facility] CARE | [address] | [address] | | | TESTS | | | [...] + + + | [facility] | [address] | [place] | | | [place] CARE | [address] | [address] | | | TESTS | | | [...] | + + + + + | [facility] | [address] | [place] [address] | | | SERVICES, CORE | PARK [...] | + + + + + | [facility] | [address] | [place] [address] | | | SERVICES, CORE | LESLY [...] [facility] | [address] | [place] | | | JUST[facility]WN OF [place] | [address] | [address] | | | TESTS | | | [...] [facility] | [address] | [place] | | | [facility] | [facility] | [address] | | | TESTS | | | [...] [facility] | [address] | [place] [address] | | | SERVICES, CORE | PARK [...] [facility] | [address] | [place] [address] | | | SERVICES, CORE | PARK [...] | [facility] | [address] | [place] [address] | | | LYDIA RANGEL | LESLY [...] | | | LABORATORY | | | CYMRAES | | | SERVICES, | | | [...] | [facility] | [address] | [place] [address] | | | SERVICES, CORE | LESLY [...] [facility] | [address] | [place] | | | [facility] [place] | [address] | [address] | | | TESTS | | | [...] [facility] | [address] | [place] | | | [facility]WN OF [place] | [facility] | [address] | | | TESTS | | | [...] (H) | 60 - 99 mg/dL | [facility] - | | | GLUCOSE, [...] [facility] | [address] | [place], [place] | | | [place] [facility] OF CARE | [address] | [address] | | | TESTS | | | [...] [facility] | [address] | [place] | | | [facility] [place] | [address] | [address] | | | TESTS | | | [...] | + + + + + | [facility] | [address] | [place] [address] | | | LYDIA RANGEL | LESLY [...] | + + + + + | [facility] | [address] | [place] [address] | | | SERVICES, CORE | [address] | | | + + + + + MAGNESIUM, PLASMA (11/17/2015 5:39 AM PDT) + +-------+ + + + | Component | Value | Ref Range | Performed | Pathologist | | | | | At | Signature | + +-------+ + + + | MAGNESIUM,P | 2.3 | 1.8 - 2.5 mg/dL | [facility] | | | JING | | | [...] | [facility] | [address] | [place] [address] | | | SERVICES, CORE | LESLY [...] | | | LABORATORY | | | CYMRAES | | | SERVICES, | | | [...] the MDRD equation recommended by the | [facility] | | National Kidney Disease [...] [facility] | [address] | [place] [address] | | | SERVICES, CORE | PARK [...] [facility] | [address] | [place] [address] | | | SERVICES, CORE | PARK [...] | + + + + + | [facility] | [address] | [place] [address] | | | SERVICES, CORE | LESLY [...] [facility] | [address] | [place], [place] | | | JUST[facility] DAWN OF [place] | [facility] | [address] | | | TESTS | | | [...] [facility] | [address] | [place], [place] | | | JUSTINE DAWN OF CARE | [facility] | [address] | | | TESTS | | | [...] (H) | 60 - 99 mg/dL | [facility] - | | | GLUCOSE, [...] [facility] | [address] | [place], [place] | | | [facility]WN [facility] CARE | [address] | [address] | | | TESTS | | | [...] + | [facility] | [address] | [place] [address] | | | SERVICES, CORE | LESLY [...] [facility] | [address] | [place] | | | [place] [facility]INT OF CARE | [address] | [address] | | | TESTS | | | [...] [facility] | [address] | [place] [address] | | | SERVICES, CORE | PARK [...] [facility] | [address] | [place] [address] | | | SERVICES, CORE | PARK [...] | | | LABORATORY | | | CYMRAES | | | SERVICES, | | | [...] the MDRD equation recommended by the | [facility] | | National Kidney Disease [...] | + + + + + | [facility] | [address] | [place] [address] | | | SERVICES, CORE | [address] | | | + + + + + MAGNESIUM, PLASMA (11/16/2015 3:08 AM PDT) + +-------+ + + + | Component | Value | Ref Range | Performed | Pathologist | | | | | At | Signature | + +-------+ + + + | MAGNESIUM,P | 2.3 | 1.8 - 2.5 mg/dL | [facility] | | | LASMA | | [...] | + + + + + | [facility] | [address] | [place] [address] | | | SERVICES, CORE | LESLY [...] (H) | 60 - 99 mg/dL | [facility] - | | | GLUCOSE, [...] [facility] | [address] | [place], [place] | | | [place] [facility]INT OF CARE | [address] | [address] | | | TESTS | | | [...] + | [facility] | [address] [facility] | [place] [address] | | | SERVICES, CORE | LESLY [...] [facility] | [address] | [place] | | | [facility] [facility] | [facility] | [address] | | | TESTS | | | [...] | [facility] | [address] | [place] [address] | | | SERVICES, CORE | LESLY [...] [facility] | [address] | [place] | | | JUSTINE DAWN OF [place] | [address] | [address] | | | TESTS | | | [...] - [facility] | [address] | [place], [place] | | | [place] | [facility] | [address] | | | TESTS | | | [...] [facility] | [address] | [place] [address] | | | CLAIRE, LYDIA | LESLY [...] [facility] | [address] | [place] [address] | | | SERVICES, CORE | LESLY [...] | + + + + + | [facility] | [address] | [place] [address] | | | SERVICES, CORE | PARK [...] + | [facility] | [address] | [place] [address] | | | SERVICES, CORE | PARK [...] | | | LABORATORY | | | CYMRAES | | | SERVICES, | | | [...] | + + + + + | [facility] | [address] | [place] [address] | | | SERVICES, CORE | LESLY [...] (H) | 60 - 99 mg/dL | [facility] - | | | GLUCOSE, [...] [facility] | [address] | [place], [place] | | | [place] [facility]INT OF CARE | [address] | [address] | | | TESTS | | | [...] + | [facility] | [address] [facility] | [place] [address] | | | SERVICES, LYDIA | LESLY [...] [facility] | [address] | [place] | | | JUSTINE DAWN OF [place] | [facility] | [address] | | | TESTS | | | [...] (H) | 60 - 99 mg/dL | [facility] - | | | GLUCOSE, [...] [facility] | [address] | [place], [place] | | | [place] POINT OF CARE | [address] | [address] | | | TESTS | | | [...] + | [facility] | [address] | [place] [address] | | | SERVICES, CORE | LESLY [...] [facility] | [address] | [place] | | | [facility]WN OF CARE | [address] | [address] | | | TESTS | | | [...] [facility] | [address] | [place] [address] | | | SERVICES, CORE | PARK [...] [facility] | [address] | [place] [address] | | | SERVICES, CORE | PARK [...] + | [facility] | [address] | [place] [address] | | | SERVICES, CORE | LESLY [...] | | | LABORATORY | | | CYMRAES | | | SERVICES, | | | [...] | + + + + + | [facility] | [address] | [place] [address] | | | SERVICES, CORE | LESLY [...] (H) | 60 - 99 mg/dL | [facility] - | | | GLUCOSE, [...] [facility] | [address] | [place] | | | JUSTINE DAWN OF [place] | [facility] | [address] | | | TESTS | | | | + + + + + CAPILLARY BLOOD GLUCOSE (NO CHG) POC (11/13/2015 6:48 PM PDT) + +---------+ [...] [facility] | [address] | [place] | | | JUSTINE DAWN OF CARE | [facility] | [address] | | | TESTS | | | [...] (H) | 60 - 99 mg/dL | [facility] - | | | GLUCOSE, [...] [facility] | [address] | [place] | | | [facility]WN [facility] | [address] | [address] | | | TESTS | | | [...] (H) | 60 - 99 mg/dL | [facility] - | | | GLUCOSE, | | [...] [facility] | [address] | [place], [place] | | | JUSTINE DAWN OF [place] | [facility] | [address] | | | TESTS | | | [...] [facility] | [address] | [place] [address] | | | SERVICES, CORE | PARK [...] [facility] | [address] | [place] [address] | | | SERVICES, LYDIA | PARK [...] | [facility] | [address] | [place] [address] | | | SERVICES, CORE | PARK [...] + | [facility] | [address] | [place] [address] | | | SERVICES, CORE | LESLY [...] [facility] | [address] | [place] [address] | | | LYDIA RANGEL | LESLY [...] | | | LABORATORY | | | CYMRAES | | | SERVICES, | | | [...] + | [facility] | [address] | [place] [address] | | | SERVICES, LYDIA | LESLY [...] [facility] | [address] | [place] [address] | | | SERVICES, CORE | PARK [...] | | | LABORATORY | | | CYMRAES | | | SERVICES, | | | [...] | + + + + + | [facility] | [address] | [place] [address] | | | LYDIA RANGEL | LESLY [...] - [facility] | [address] | [place] | | | JUSTINE DAWN OF CARE | [facility] | [address] | | | TESTS | | | [...] (H) | 60 - 99 mg/dL | [facility] - | | | GLUCOSE, [...] [facility] | [address] | [place], [place] | | | [facility]WN OF CARE | [address] | [address] | | | TESTS | | | [...] [facility] | [address] | [place] | | | [facility]WN [facility] [place] | [address] | [address] | | | TESTS | | | [...] - [facility] | [address] | [place] | | | [facility] CARE | [address] | [address] | | | TESTS | | | [...] [facility] | [address] | [place] [address] | | | SERVICES, CORE | PARK [...] + | [facility] | [address] [facility] | [place] [address] | | | SERVICES, CORE | [address] | | | + + + + + MAGNESIUM, PLASMA (11/12/2015 4:13 AM PDT) + +-------+ + + + | Component | Value | Ref Range | Performed | Pathologist | | | | | At | Signature | + +-------+ + + + | MAGNESIUM,P | 2.3 | 1.8 - 2.5 mg/dL | [facility] | | | LASMA | | [...] | + + + + + | [facility] | [address] [facility] | [place] [address] | | | SERVICES, CORE | PARK [...] | | | LABORATORY | | | CYMRAES | | | SERVICES, | | | [...] + | [facility] | [address] | [place] [address] | | | SERVICES, CORE | LESLY [...] [facility] | [address] | [place], [place] | | | [facility]WN OF [place] | [address] | [address] | | | TESTS | | | [...] [facility] | [address] | [place] [address] | | | SERVICES, CORE | LESLY [...] [facility] | [address] | [place] [address] | | | SERVICES, CORE | LESLY [...] [facility] | [address] | [place] [address] | | | SERVICES, CORE | PARK [...] [facility] | [address] | [place] [address] | | | SERVICESLYDIA | [address] | | | + [...] | [facility] | [address] | [place] | | | [facility] CARE | [address] | [address] | | | TESTS | | | [...] [facility] | [address] | [place], [place] | | | [facility] CARE | [address] | [address] | | | TESTS | | | [...] | + + + + + | [facility] | [address] | [place] [address] | | | LYDIA RANGEL | LESLY [...] [facility] | [address] | [place] | | | [facility] [facility] | [address] | [address] | | | TESTS | | | [...] [facility] | [address] | [place] [address] | | | SERVICES, CORE | PARK [...] + | [facility] | [address] | [place] [address] | | | SERVICES, CORE | [address] | | | + + + + + MAGNESIUM, PLASMA (11/11/2015 4:39 AM PDT) + +-------+ + + + | Component | Value | Ref Range | Performed | Pathologist | | | | | At | Signature | + +-------+ + + + | MAGNESIUM,P | 2.3 | 1.8 - 2.5 mg/dL | [facility] | | | LASMA | | | [...] | + + + + + | [facility] | [address] | [place] [address] | | | SERVICES, CORE | PARK [...] | | | LABORATORY | | | CYMRAES | | | SERVICES, | | | [...] + | [facility] | [address] [facility] | [place] [address] | | | SERVICES, CORE | PARK [...] [facility] | [address] | [place], [place] | | | [facility] CARE | [address] | [address] | | | TESTS | | | [...] | + + + + + | [facility] | [address] | [place] [address] | | | LYDIA RANGEL | LESLY [...] (H) | 60 - 99 mg/dL | [facility] - | | | GLUCOSE, [...] [facility] | [address] | [place] | | | [facility] POINT OF CARE | [address] | [address] | | | TESTS | | | [...] [facility] | [address] | [place], [place] | | | JUSTINE DAWN OF [place] | [facility] | [address] | | | TESTS | | | [...] | + + + + + | [facility] | [address] | [place] [address] | | | SERVICES, [facility] | [address] | | | + [...] + | [facility] | [address] | [place] | | | [facility] | [address] | [address] | | | TESTS | | | [...] | [facility] | [address] | [place] [address] | | | SERVICES, CORE | PARK [...] + | [facility] | [address] | [place] [address] | | | SERVICES, CORE | PARK [...] [facility] | [address] | [place] [address] | | | SERVICES, CORE | PARK [...] | | | LABORATORY | | | CYMRAES | | | SERVICES, | | | [...] + | [facility] | [address] [address] | [place] [address] | | | SERVICES, CORE | LESLY [...] | [facility] | [address] | [place] [address] | | | SERVICES, CORE | PARK [...] | + + + + + | [facility] | [address] | [place] [address] | | | SERVICES, CORE | LESLY [...] (H) | 60 - 99 mg/dL | [facility] - | | | GLUCOSE, [...] + + + | [facility] | [address] | [place], [place] | | | [facility] | [address] | [address] | | | TESTS | | | [...] [facility] | [address] | [place], [place] | | | JUSTINE DAWN OF [facility] | [address] | [address] | | | TESTS | | | | + + + + + X-RAY PORTABLE CHEST PICC LINE CHECK (11/09/2015 3:12 PM PDT) + + + + + + | Component | Value | Ref Range | Performed | Pathologist | | | | | At | Signature | + + + + + + | XRAY | EXAM: DC CHEST PICC LINE | | | | [...] and meds | | | Procedure location: Unit:[facility] Room: 13 Providers: PICC Nurse [...] | pause verifies correct patient, procedure, equipment, network support administrator | | | and site/side marked as [...] | area Cephalic vein. Catheter lot number: [id number] with a length of | | | [...] [facility] | [address] | [place], [place] | | | JUSTINE DAWN OF [facility] | [facility] | [address] | | | TESTS | | | [...] | + + + + + | [facility] | [address] | [place] [address] | | | SERVICES, CORE | LESLY [...] (H) | 60 - 99 mg/dL | [facility] - | | | GLUCOSE, [...] [facility] | [address] | [place], [place] | | | JUSTINE DAWN OF CARE | [address] | [address] | | | TESTS | | | [...] | + + + + + | [facility] | [address] | [place] [address] | | | SERVICES, LYDIA | [address] | | | [...] | + + + + + | [facility] | [address] | [place] [address] | | | LYDAI RANGEL | [address] | | | [...] [facility] | [address] | [place] [address] | | | SERVICES, CORE | PARK [...] | | | LABORATORY | | | CYMRAES | | | SERVICES, | | | [...] the MDRD equation recommended by the | [facility] | | National Kidney Disease [...] | + + + + + | [facility] | [address] | [place] [address] | | | LYDIA RANGEL | [address]ES[address] [...] [facility] | [address] | [place], [place] | | | [facility] | [address] | [address] | | | TESTS | | | [...] [facility] | [address] | [place], [place] | | | [facility] | [address] | [address] | | | TESTS | | | [...] [facility] | [address] | [place] [address] | | | SERVICES, CORE | PARK [...] | + + + + + | [facility] | [address] | [place] [address] | | | SERVICES, CORE | LESLY [...] | [facility] | [address] | [place] [address] | | | SERVICES, LYDIA | [address]ES[address] [...] [facility] | [address] | [place], [place] | | | [facility] | [facility] | [address] | | | TESTS | | | [...] (H) | 60 - 99 mg/dL | [facility] - | | | GLUCOSE, [...] [facility] | [address] | [place], [place] | | | [facility] | [address] | [address] | | | TESTS | | | [...] [facility] | [address] | [place], [place] | | | [facility] | [facility] | [address] | | | TESTS | | | [...] | + + + + + | [facility] | [address] | [place] [address] | | | SERVICES, LYDIA | LESLY [...] [facility] | [address] | [place] [address] | | | SERVICES, CORE | PARK [...] [facility] | [address] | [place] [address] | | | CLAIRE, CORE | LESLY [...] | + + + + + | [facility] | [address] | [place] [address] | | | SERVICESLYDIA | [address] | | | + [...] [facility] | [address] | [place] [address] | | | SERVICES, CORE | PARK [...] | | | LABORATORY | | | CYMRAES | | | SERVICES, | | | [...] | + + + + + | [facility] | [address] | [place] [address] | | | LYDIA RANGEL | [address] [...] | [facility] | [address] | [place] [address] | | | LYDIA RANGEL | [address] [...] (H) | 60 - 99 mg/dL | [facility] - | | | GLUCOSE, [...] [facility] | [address] | [place], [place] | | | [facility] | [address] | [address] | | | TESTS | | | [...] | + + + + + | [facility] | [address] | [place] [address] | | | SERVICES, CORE | LESLY [...] [facility] | [address] | [place], [place] | | | [facility] | [address] | [address] | | | TESTS | | | [...] | [facility] | [address] | [place], [place] | | | [facility] | [address] | [address] | | | TESTS | | | [...] | [facility] | [address] | [place], [place] | | | CARDIOLOGY | [address] | [address] | | + + + + + [...] [facility] | [address] | [place], [place] | | | [facility]WN OF [facility] | [address] | [address] | | | TESTS | | | [...] | | | LABORATORY | | | CYMRAES | | | SERVICES, | | | [...] | [facility] | [address] | [place] [address] | | | SERVICES, CORE | LESLY [...] [facility] | [address] | [place] [address] | | | SERVICES, CORE | PARK [...] + | [facility] | [address] | [place] [address] | | | SERVICES, CORE | LESLY [...] [facility] | [address] | [place], [place] | | | [facility] | [facility] | [address] | | | TESTS | | | [...] [facility] | [address] | [place] [address] | | | SERVICES, CORE | LESLY [...] [facility] | [address] | [place] [address] | | | LYDIA RANGEL | LESLY [...] | + + + + + | [facility] | [address] | [place] [address] | | | SERVICES, CORE | LESLY [...] | + + + + + | [facility] | [address] | [place] [address] | | | LYDIA RANGEL | LESLY [...] (H) | 60 - 99 mg/dL | [facility] - | | | GLUCOSE, [...] [facility] | [address] | [place], [place] | | | [facility] OF [facility] | [address] | [address] | | | TESTS | | | [...] | + + + + + | [facility] | [address] | [place] [address] | | | SERVICES, CORE | PARK [...] | + + + + + | [facility] | [address] | [place] [address] | | | SERVICES, CORE | [address] | | | + + + + + MAGNESIUM, PLASMA (11/07/2015 3:17 AM PDT) + +-------+ + + + | Component | Value | Ref Range | Performed | Pathologist | | | | | At | Signature | + +-------+ + + + | MAGNESIUM,P | 1.9 | 1.8 - 2.5 mg/dL | [facility] | | | LASMA | | | [...] + | [facility] | [address] | [place] [address] | | | SERVICES, CORE | LESLY [...] | | | LABORATORY | | | CYMRAES | | | SERVICES, | | | [...] the MDRD equation recommended by the | 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 | [place], [place] | | | [facility] OF [facility]ARE | [address] | [address] | | | TESTS | | | | + + + + + ED BG-DEMARPOC (11/06/2015 2:06 PM PDT) + + + [...] + | [facility] | [address] | [place], [place] | | | [facility] | [facility] | [address] | | | TESTS | | | [...] [facility] | [address] | [place] [address] | | | CLAIRE, LYDIA | LESLY [...] + + + + + + | [facility] | 441 | ms | [facility] [...] DEPT OF | [address] | [place], [place] | | | CARDIOLOGY | [address] | [address] | | + + + + + [...] [facility] | [address] | [place] [address] | | | LYDIA RANGEL | LESLY [...] [facility] | [address] | [place] [address] | | | SERVICES, CORE | [address] [...] | | | LABORATORY | | | CYMRAES | | | SERVICES, | | | [...] [facility] | [address] | [place] [address] | | | SERVICES, CORE | [address] | | | + + + + + NT-PRO BNP (11/06/2015 1:31 PM PDT) + +-------+ + + + | Component | Value | Ref Range | Performed | Pathologist | | | | | At | Signature | + +-------+ + + + | NT-PRO BNP | 64 | <125 pg/mL | [facility] | | | | | | LABORATORY [...] + | [facility] | [address] | [place] [address] | | | SERVICES, CORE | [address] | | | + + + + + ED INFORMATION EXCHANGE (11/06/2015 1:26 PM PDT) + + + + + + | Component | Value | Ref Range | Performed | Pathologist | | | | | At | Signature | + + + + + + | [facility] | [id number] | | [facility] | | | | [id number] | | MEDICAL | | | | | | [facility]CHNOLOGIE | | | | | | S | | + + + + + + + + | Specimen | + + | | + + + + + | Narrative | Performed At | + + + | [facility] has no Care Guidelines for this patient. ED/C VISIT | [facility] | | TRACKING (3 MO.) Visit Date Location | MEDICAL | | Type Dx / Complaint | TECHNOLOGIES | | -------- | | | ---- 11/06/2015 | | | 13:25 [facility] | | | [id number]. Referral; Cellulitis 09/28/2015 15:[address] [facility] | | | Hospital Emergency -Migraine, unspecified, [...] -Pain in left lower leg 09/13/2015 14:54 [facility] | | | Hospital Emergency -Unspecified [...] | | | | | | -Other senior living (current) | | | drug therapy | | | -Allergy status | | | to penicillin ED VISIT COUNT (1 YR.) Visits Location | | | ------ --------- 1 [facility] | | | [place] 9 [facility] 10 | | | Total Note: Visits indicate total known visits. | | | | | | --- | | + + + + + + + + | Performing | Address | City/State/Zipcode | Phone Number | | Organization | | | | + + + + + | [facility] | [address] | [place], [place] | [phone] | | TECHNOLOGIES | [address] | [address] | | + + + + + [...] | | | | | | Until 11/21/15 at 1949, for | | | | [...] 4:14 | | | | | dose, [facility] 11/08/15 at 1430 | | PM [...] | furosemide (LASIX) IV 120 mg | | 11/17/19 | 120 mg | | [...] + +---------+ +--------+---+---+ +---------+ +--------+---+---+ | New | 11/16/19 | 120 mg | | [...] | | TIMES DAILY, First dose on Wed | | AM [...] | | | oral, ONCE, 1 dose, [facility] 11/08/15 | | PM PDT | [...] dose on Fanny 11/08/15 at | | AM PDT | | [...] | | | | ONCE, 1 dose, [facility] 11/08/15 at 1900 | | PM PDT | | | | + +-------+ +--------+---+---+ +---+---+ | | | +---+---+ + +-------+ +--------+---+---+ | potassium chloride (KLOR-CON) | Given | 11/15/19 | 60 mEq | | | | packet 60 mEq 60 mEq, oral, | | 16 9:11 | | | | | ONCE, 1 dose, [facility] 11/15/15 at 0830 | | AM PDT [...] | | | | ONCE, 1 dose, [facility] 11/14/15 at 0845 | | AM PDT | | | | + +-------+ +--------+---+---+ +---+---+ | | | +---+---+ + +-------+ +--------+---+---+ | potassium chloride SR (K-DUR) | Given | 04/22/20 | 60 mEq | | | | [...] | | | | | 1 dose, [facility] 11/06/15 at 2115 | | PM PDT [...]
--- OUTSIDE RECORDS SUMMARY | ~2020-03-23 | XMS | Encounter Summary ---
Demographics + + + | Address | [address] | | | [place] [address] | + + + | Home Phone [...] + | Katalina Padilla | ECON | [address] | | | | | [place], [place] | | | | | [address] | | + + + + + | Ellie Vang | ECON | Unknown | | + + + + + Care Team Providers + +------+ + | Care Welder Assistant Name | Role | Phone | [...] + + | 05/13/ | Emergency | [facility] Emergency | Josemanuel Joe | | | 2019 - | | Department [address] | | | | | [address] | [address] | | | 05/14/ | | [facility] | [place], [place] | | | 2019 | | [place], [place] | [address] | | | | | [address] | [phone] | | | | | [phone] | | | +--------+ + + + [...] might be different fr om the original. [facility] Discharge Summary Green Surgery Admit Date: [...] by mouth once daily at bedtime. CALCIUM [id number]-GENIS ORAL Take 2 tablets by mouth two [...] passing gas, please go directly to the devan rgency department to be evaluated. Pain Medications: [...] the prescribed narcotic-opioid (e.g. oxycodone, hydrocodone, Vicodin, Norris, Percoce t, Dilaudid) as needed. Opioid pain medications may cause constipation, so be sure to take a stool softener if you take an opioid pain medication. FOLLOW-UP: Follow-up with your primary care provider for pain control. Dr. Tiwari's small wind energy installer will contact you to try to find a date for surgery. Follow Up: Future Appointments Provider Department Dept Phone Center 06/27/2019 11:55 AM [facility] PHONE/RN CLIN 3 Preoperative Medicine Clinic at [place] [address] [phone] [facility] 06/30/2019 11:30 AM [facility] Franks Cardiology in [facility] Schedule the following appointment(s) when you get home JONES TIWARI MD. Specialty: General Surgery Why: Dr. Tiwari's small wind energy installer will call you to schedule a surgery date. Contact information [address] [place] [address] Kenyatta Hylton MD. Specialty: Family Medicine Why: For pain control. Contact information [address] [place] [address] Discharge Physical Exam: Last [...] oriented. Grossly intact. Anisa Christopher MD PhD [facility] General Surgery ATTENDING PHYSICIAN STATEMENT I saw the patient and have repeated the pertinent portions of the history and physical exam . I agree with the findings, assessment and plan as documented by the resident. Johana Holloway MD Division of Gastrointestinal and General Surgery [facility] & [address], [place] [address] Office: [phone] documented in this e ncounter Discharge Instructions [...] surgery date up as possible and the small wind energy installer will contact you. Elec tronically signed by [...] passing gas, please go directly to the [facility] rgency department to be evaluated. Pain Medications: [...] the prescribed narcotic-opioid (e.g. oxycodone, hydrocodone, Vicodin, Norris, Percoce t, Dilaudid) as needed. Opioid pain medications may cause constipation, so be sure to take a stool softener if you take an opioid pain medication. FOLLOW-UP: Follow-up with your primary care provider for pain control. Dr. Tiwari's small wind energy installer will contact you to try to find [...] | | 0 | | | | [id number]-GEN | mouth two times | | | [...] Surgery History and Physical Patient: Dylan Cristina ([id number]) Date: 05/13/2019 Chief Complaint: Abdominal pain History [...] and was sent to the ED from [facility]. Patient was seen by Dr. Tiwari in clinic on 05/05/2019 at which time she had diarrhea w ith nausea and vomiting. She developed new abdominal pain on 05/10/2019 at which time she wa s seen at [facility] in [place], [place] (CT abdomen pelvis in [facility]). There was no evidence o f obstruction [...] cm or less 8 [facility], Dr Pandey Cholecystectomy, laparoscopic Past [...] mg by mouth two times daily. CALCIUM [id number]-GENIS ORAL Sig: Take 2 tablets by mouth [...] file Gets together: Not on file Attends rastafarian service: Not on file Active member of club or organization: Not on file Attends meetings of clubs or organizations: Not on file Relationship status: Not on file Other Topics Concern Not on file Social History Narrative Updated 11/09/15 She lives in [place] with her mother and her sister (also her caregiver) lives in an apa rtment/duplex below. She has 2 grandchildren (age 4 and 7) who live with her daughter and son-in-law Her boyfriend lives in [place] HFpEF, DM2, HTN, Sleep Apnea (unable to tolerate CPAP), Hypothyroidism, Severe Obesity ([facility] max weight 495 lbs) Last [...] program here and refer her to our medical accounts receivable specialist who also has expertise in physical [...] IV and PO contrast Neelam Owen, PGY2 [id number] I am aware of current clinical events. [...] will see her again. JONES TIWARI MD [facility] EMERGENCY DEPARTMENT [address] [place] [address] JONES TIWARI MD [facility] EMERGENCY DEPARTMENT [address] [place] [address] documented in this encounter Consult Notes Luca Goodman Jr., [facility] - 05/14/2019 2:25 AM PDTFormatting of this note might be different f rom the original. Pharmacy Services: Admission Medication Reconciliation Prior to Admission Medications: Prior to Admission Medications Prescriptions Last Dose Informant Patient Reported? Taking? ALPRAZolam 1 mg oral tablet Yes Yes Sig: Take 1 mg by mouth twice daily as needed. CALCIUM [id number]-GENIS ORAL 05/12/2019 at Unknown time Yes Yes [...] regarding this information please contact pharmacy, pager [phone] Luca Goodman Jr., PharmD, BCPS, BCCCP Clinical Pharmacist [facility] Pharmacy Services documented in this [...] Rosa called RN and suggested paging [facility] health information internship. [facility] health information internship pag ed at this time. Madonna Felix RN - 05/14/2019 3:46 AM PDTPt requesting sleep something to help her sleep. P t tearful at this time stating that she hasn't been able to sleep for the last couple of wee ks. Curt Caldwell MD regarding sleep: "Pt Dylanirma Cristina ([id number]) ED Rm 32: Pt requesting sleep aid, but reports melatonin does no t work for her. Please also sign up for first call. KELSIE Sotelo [id number]"Electronically signed by Madonna Vigil RN at 2018 3:48 AM Leora Salazar RN - 05/14/2019 1:52 AM PDTPatient reporting she is very an xious, states she doesn't know anyone in [place] and all her family is back home [...] pt at this time. Pt [facility] appointment today for incarcerated hernia wi th [...] [facility] who referred her [...] 04/14/2013 Priority: 3 Hypoventilation associated with obesity ([facility]) 06/16/2013 Priority: 4 AMARA (obstructive sleep apnea) 04/14/2013 Priority: 4 Overview Note: Cannot tolerate CPAP Severe Morbid obesity ([facility]), BMI 88 11/12/2012 Priority: 4 Overview Note: Lifetime max: 495 lbs Phentermine started Type 2 diabetes mellitus ([facility]) 04/14/2013 Priority: 5 Iron deficiency anemia due [...] to Bromocriptine Myalgia and myositis Bipolar disorder ([facility]) Depression Anemia Chronic wound infection of abdomen from 2010 Morbid obesity with body mass index of 70 and over in adult ([facility]) Incisional hernia, incarcerated 2012 Hernia of abdominal [...] nilesh limb 150 cm or less [facility]01/[facility], [facility] Medications Prior to Admission Medications Prescriptions Last Dose Informant Patient Reported? Taking? ALPRAZolam 1 mg oral tablet Yes No Sig: Take 1 mg by mouth two times daily. CALCIUM [id number]-GENIS ORAL 05/12/2019 at Unknown time Yes Yes [...] 0.68 0.60 - 1.10 mg/dL EGFR - HUNGARIAN >60 >60 mL/min EGFR NON -HUNGARIAN >60 >60 mL/min SODIUM, PLASMA (LAB) 141 [...] by both resident and myself using the [employer] share function. I agree with t amaury [...] had a BM today, and usually has sports writer ela diarrhea. Mary Gong RN - 05/13/2019 5:19 PM PDTPt BIBA, sent from [facility]. Pt arrived from [facility] by medical transport today to have a doctor's appointment at clinic, and pt was noted to have severe abdominal pain which has increases steadily since PC P in [place] gave pt a fentanyl patch. Staff at clinic noted pt with multiple abdominal h ernias which is probably the cause of abdominal pain. Pt is sent here for hernia repair emerson jerrica. Pt states seen at a pain clinic in the [facility] and was prescribed fentanyl patch from [...] with the documentation in the provider note. [facility] - Trell Ash - 05/13/2019 5:00 PM [id number] 44yof jin abdullahi MD 124/62 99% ra domonique 5Edasia buenrostro signed by Trell Starks at 05/13/2019 5:00 PM PDTTransfer Note - Cyndi Paulino PA-C - 05/13/2019 4:25 PM PDTEmergency Medicine Referral Note Referring Provider Name: Dr. Owen Referring Provider Specialty/Clinic: [facility] S[facility] Contact Number: pager Callback required?: yes Provider aware that we are on Ambulance divert. Relevant Past Medical History HTN, CVA, mult hernias, known incarcerated bowel in hernia 44 year old female presenting with abdominal pain. Worse for 2 days. Not passing gas. No BM Decreased appetite with N/V Decreased urinary output. Seen at [place] ED a days ago Illness Severity: Watcher Abd hernia soft but severely tender. Plan, Recommendations and Disposition - CBC, CMP, LA - CT AP with IV/PO contrast (please expedite) - Will get records from [place] - Page green surg (or page [phone]) - Dr. Tiwari requesting NGT and NPO Mode of Transportation EMS Provider aware that we are on Ambulance divert. Cyndi Paulino PA-C a [facility] - Teresa Robledo - 05/13/2019 4:24 PM [...] | 2019 | sherrill | | MANAGER TRANSIT [address] | | | | | | [place], [place] | | | | | | [address] | | | | | | [phone] | | | | | | | [...] [place] | [address] | [place], [place] | | | [place] OF CARE | [facility] | [address] | | | TESTS | | | [...] [facility] | [address] | [place] [address] | | | SERVICES, CORE | PARK [...] | | | LABORATORY | | | HUNGARIAN | | | SERVICES, | | | [...] MDRD equation recommended by the National | [facility] | | Kidney Disease Education [...] CENTER LABORATORY | [address] | [place] [address] | | | SERVICES, [facility] | [address] | | | + [...] [facility] | [address] | [place] [address] | | | SERVICES, CORE | PARK [...] 5-6 weeks | | | 850 - 08319 6-7 weeks | | | 4000 - 379549 7-12 weeks | | | 95761 - 710268 12-16 weeks | | | 63362 - 659185 16-29 | | | weeks 1400 - 37355 | | | 29-41 weeks 940 - 61144 | | | This test has not been approved for use as a tumor marker in | | | males or females. | | + + + + + + + + | Performing | Address | City/State/Zipcode | Phone Number | | Organization | | | | + + + + + | [facility] | [address] | [place] [address] | | | SERVICES, CORE | PARK [...] + + + + + | [facility] | [address] [facility] | [place] [address] | | | SERVICES, CORE | CLARENCE [...] | | | LABORATORY | | | HUNGARIAN | | | SERVICES, | | | [...] | + + + + + | [facility] | [address] | [place] [address] | | | SERVICES, [place] | [address] | | | + + + + + ED INFORMATION EXCHANGE (05/13/2019 5:14 PM PDT) + + | Specimen | + + | | + + + + + | Narrative | Performed At | + + + | COLLECT[facility]?NOTIFICATION?05/13/2019 17:13?DYLAN CRISTINA?MRN: | [facility] | | [id number] Criteria Met Has Guidelines PDMP Security | MEDICAL | | and Safety No recent Security Events currently on file ED Care | [employer] | | Guidelines from [facility] [place] Last Updated: 12/06/18 9:53 AM | | | Care Coordination: Receiving mental health services with | | | [facility].? Please contact [facility] for mental health concerns.? | | | Sarah/Toni Centeno: [phone]? Kishan: [phone].? | | | These are guidelines and the provider should exercise clinical | | | judgment when providing care. Care History Medical/Surgical | | | 05/11/19 12:[address] [facility] Patient is | | | currently established with [facility]. If patient is seen in | | [...] 08/23/18 12:00 AM | | | [facility] PATIENT HAS A PCP APT TO [...] SUDOGEST 30 MG TABLET 5 BERNARDO MARTIN, PHYSICAL SCIENCES INSTRUCTOR 0 | | | 2019-03-30 SUDOGEST 30 MG TABLET 30 BERNARDO MARTIN, PHYSICAL SCIENCES INSTRUCTOR 0 | | | 2019-03-20 ALPRAZOLAM 1 [...] (12 mo.) Facility Visits | | | [facility] 1 [facility] 1 | | | [facility] 2 Total 4 Note: Visits indicate total | | | known visits. Recent Emergency Department Visit Summary Date | | | Facility City State Type Diagnoses or Chief Complaint May 13, 2019 | | | [facility] [place] Emergency | | | 10,800. A303 May 10, 2019 [facility] [place] | | | Emergency Nausea with vomiting, unspecified Solitary | | | pulmonary nodule Anxiety disorder, unspecified Ventral | | | hernia without obstruction or gangrene Unspecified abdominal | | | pain Diarrhea, unspecified Allergy status to oth | | | drug/meds/biol subst status Prsnl hx of TIA (TIA), and cereb | | | infrc w/o resid deficits Other mcfp (current) drug therapy | | | Allergy status to penicillin December 03, 2018 [facility] | | | Health [place] Emergency RIGHT LEG PAIN DUE TO FALL | | | Strain of unsp musc/tend at lower leg level, right leg, init Jul | | | 2018 [facility] [place] Emergency Other mcfp | | | (current) drug therapy Upper abdominal pain, unspecified | | | Bariatric surgery status Allergy status to oth drug/meds/biol | | | subst status Noninfective gastroenteritis and colitis, | | | unspecified Obesity, unspecified Anxiety disorder, | | | unspecified half-way (current) use of aspirin Allergy | | | status to penicillin Personal history of pulmonary embolism | | | Recent Inpatient Visit Summary No recorded inpatient visits. | | | Care Team Provider Specialty Phone Fax Service Dates Treva, | | | Rob Duplicator Punch Set Up Operator/Outside Food Server Mar 27, 2018 - | | | Current Bernard Hylton MD Internal Medicine: Pulmonary Disease | | | Aug 23, 2018 - Current Masabi This patient has | | | registered at the [facility] [place] [facility] | | | Department For more information visit: | | | [email or web address] | | | [email or web address] PLEASE NOTE: 1. Any care recommendations [...] or completeness of information provided. ? 2019 [employer] | | | [employer] - [email or web address] | | + + + + + | Procedure Note | + + | Service Account, Rtf Results Inbound - 05/13/2019 5:16 PM PDT Formatting of this | | note might be different from the original.COLLECTIVE?NOTIFICATION?05/13/2019 | | 17:13?DYLAN CRISTINA? [facility] Has Guidelines PDMPSecurity and | | SafetyNo recent Security Events currently on fileED Care Guidelines from [facility] - | | [place] Updated: 12/06/18 9:53 AM Care Coordination:Receiving mental health | | services with [facility].? Please contact [facility] for mental health concerns.? | | Sarah/Toni Centeno: [phone]? Kishan: [phone].?These are guidelines | | and the provider should exercise clinical judgment when providing care.Care | | HistoryMedical/Nhaotbxp70/16/19 12:00 AM [facility] Patient is currently | | established with [facility]. If patient is seen in the ED during business hours. | | Please contact CHWs at [facility].Care Recommendation:This patient has had 5 or | [...] clinical judgment when providing care.08/23/18 12:00 AM [facility] | | Hospital PATIENT HAS A [...] SUDOGEST 30 MG TABLET 5 BERNARDO MARTIN, PHYSICAL SCIENCES INSTRUCTOR 0 2019-03-30 SUDOGEST 30 MG TABLET 30 | | BERNARDO MARTIN, PHYSICAL SCIENCES INSTRUCTOR 0 2019-03-20 ALPRAZOLAM 1 MG TABLET 60 [...] 450 MCG | | FILM 48 BETZY BLADWIN PA-C 0 2019-01-02 PHENTERMINE 37.5 MG TABLET [...] mo.)Facility Visits [facility] | | Health 1 [facility] 1 [facility] 2 Total 4 Note: | | Visits indicate total known visits. Recent Emergency Department Visit SummaryDate | | Facility City State Type Diagnoses or Chief Complaint May 13, 2019 [facility] and | | [facility] [place] Emergency 10,800. A303 May 10, 2019 [facility] | | [place] Emergency Nausea with vomiting, unspecified Solitary pulmonary nodule | | Anxiety disorder, unspecified Ventral hernia without obstruction or gangrene | | Unspecified abdominal pain Diarrhea, unspecified Allergy status to oth | | drug/meds/biol subst status Prsnl hx of TIA (TIA), and cereb infrc w/o resid deficits | | Other prefabricator (current) drug therapy Allergy status to penicillin December 03, 2018 | | [facility] [place] Emergency RIGHT LEG PAIN DUE TO FALL Strain of | | unsp musc/tend at lower leg level, right leg, init Aug 22, 2018 [facility] | | [place] Emergency Other prefabricator (current) drug therapy Upper abdominal pain, | | unspecified Bariatric surgery status Allergy status to oth drug/meds/biol subst | | status Noninfective gastroenteritis and colitis, unspecified Obesity, unspecified | | Anxiety disorder, unspecified half-way (current) use of aspirin Allergy status | | to penicillin Personal history of pulmonary embolism Recent Inpatient Visit | | SummaryNo recorded inpatient visits. Care TeamProvider Specialty Phone Fax Service Dates | | Rob Tilley Duplicator Punch Set Up Operator/Outside Food Server Mar 27, 2018 - Current | | Bernard Hylton MD Internal Medicine: Pulmonary Disease Aug 23, 2018 - Current | | [employer] Eddi patient has registered at the [facility] | | Emergency Department For more information visit: | | [email or web address] PLEASE | | NOTE: 1. Any care [...] completeness of information | | provided.? 2019 [email or web address] | |[facility] Pharm[facility] 3 | |Benzos 4 | |Opioids 7 | |Long Acting Opioids 0 | | | | | | | |E.D. Visit Count (12 mo.) | |Facility Visits | |[facility] 1 | |[facility] 1 | |[facility] 2 | |Total 4 | |Note: Visits indicate total known visits. | | | |Recent Emergency Department Visit Summary | |Date Facility City State Type Diagnoses or Chief Complaint | |May 13, 2019 [facility] [place] Emergency | | 10,800. A303 | | | |May 10, 2019 [facility] [place] Emergency | | Nausea with vomiting, unspecified | | Solitary pulmonary nodule | | Anxiety disorder, unspecified | | Ventral hernia without obstruction or gangrene | | Unspecified abdominal pain | | Diarrhea, unspecified | | Allergy status to oth drug/meds/biol subst status | | Prsnl hx of TIA (TIA), and cereb infrc w/o resid deficits | | Other mcfp (current) drug therapy | | Allergy status to penicillin | | | |December 03, 2018 [facility]. [place] Emergency | | RIGHT LEG PAIN DUE TO FALL | | Strain of unsp musc/tend at lower leg level, right leg, init | | | |Aug 22, [address] [facility]. [place] Emergency | | Other prefabricator (current) drug therapy | | Upper abdominal pain, unspecified | | Bariatric surgery status | | Allergy status to oth drug/meds/biol subst status | | Noninfective gastroenteritis and colitis, unspecified | | Obesity, unspecified | | Anxiety disorder, unspecified | | athletic events scorer (current) use of aspirin | | Allergy status to penicillin | | Personal history of pulmonary embolism | | | | | | | |Recent Inpatient Visit Summary | |No recorded inpatient visits. | | | |Care Team | |Provider Specialty Phone Fax Service Dates | |Rob Tilley Duplicator Punch Set Up Operator/Outside Food Server Mar 27, 2018 - Current | |Bernard Hylton MD Internal Medicine: Pulmonary Disease Aug 23, 2018 - Current | | | |[employer] Portal | |This patient has registered at the [facility] Emergency Departmen t | |For more information visit: [email or web address] | |PLEASE NOTE: | | 1. Any care recommendations and other clinical information are provided as guidelines or for historical purposes only, and providers should exercise their own clinical judgment whe n providing care. | | 2. You may only use this information for purposes of treatment, payment or health care o perations activities, and subject to the limitations of applicable [employer] Policies. | | 3. You should consult directly with the organization that provided a care guideline or o ther clinical history with any questions about additional information or accuracy or complet eness of information provided. | | | |? 2019 [email or web address] | + + + + + + + | Performing | Address | City/State/Zipcode | Phone Number | | Organization | | | | + + + + + | [facility] | [address] | [place], [place] | [phone] | | TECHNOLOGIES | [address] | [address] | | + + + + + [...] | | | | ONCE, 1 dose, [facility] 05/13/19 at | | PM PDT | [...] | | | | ONCE, 1 dose, [facility] 05/13/19 at | | PM PDT | [...] | | | | ONCE, 1 dose, [facility] 05/14/19 at | | PM PDT | [...]
--- OUTSIDE RECORDS SUMMARY | ~2020-03-23 | XMS | Encounter Summary ---
Demographics + + + | Address | [address] | | | [place] [address] | + + + | Home Phone [...] + | Katalina Padilla | ECON | [address] | | | | | [place], [place] | | | | | [address] | | + + + + + | Ellie Vang | ECON | Unknown | | + + + + + Care Team Providers + +------+ + | Care Embossing Calender Operator Name | Role | Phone | [...] | | | | | | [address] [place], [place] | | | | | | [address] | | | | | | [phone] | | | +--------+ + + + [...] | | 2020 | cheduled | | HOSPITAL SECRETARY [address] | | | | | | [place], [place] | | | | | | [address] | | | | | | [phone] | | | | | | | | +--------+ + + + + documented as of this encounter Visit Diagnoses Not on filedocumented in this encounter"
--- OUTSIDE RECORDS SUMMARY | ~2020-03-23 | XMS | Encounter Summary ---
Demographics + + + | Address | [address] | | | [place] [address] | + + + | Home Phone [...] + | Katalina Padilla | ECON | [address] | | | | | [place], [place] | | | | | [address] | | + + + + + | Ellie Vang | ECON | Unknown | | + + + + + Care Team Providers + +------+ + | Care Nurse Orthopaedic Name | Role | Phone | + [...] 2019 | Visit | Reconstructive | [address] | abdomen (Primary Dx) | | | | Surgery at [facility] [address] | [place], [place] | | | | | [address] | [address] | | | | | for Health and | [phone] | | | | | [facility], Building [address], | | | | | | 5th Floor | | | | | | [place], [place] | | | | | | [address] | | | | | | [phone] | | | +--------+---------+ + + + [...] Dr. Andie Brian Incisional hernia repair 03/01/2015 [facility]/ Dr. Cantu. Primary fascial closure and scar excision Lap gastric byp, and nilesh-en-y gastroenterostomy w/ nilesh limb 150 cm or less [facility] Cholecyst[facility], laparoscopic Allergies Allergen Reactions Amoxicillin [...] 50 mg by mouth once daily. CALCIUM [id number]-[id number] ORAL Take 2 tablets by mouth two [...] her hernia. I have called General Surg ieleen to evaluate. Assessment: This is a 44 [...] | | 2019 | sherrill | | [place] [employer] [address] | | | | | | [place], [place] | | | | | | [address] | | | | | | [phone] | | | | | | | | +--------+ + + + + documented as of this encounter Visit Diagnoses + + | Diagnosis | + + | Excess skin of abdomen - Primary Unspecified hypertrophic and atrophic condition of | | skin | + + documented in this encounter
--- OUTSIDE RECORDS SUMMARY | ~2020-03-23 | XMS | Encounter Summary ---
[...] [place], [place] | | | | | [address] | | + + + + + | Ellie Vang | ECON | Unknown | | + + + + + Care Team Providers + +------+ + | Care Reliability Manager Name | Role | Phone | [...] | | | | [facility] | | | | | | [place], [place] | | | | | | [address] | | | | | | [phone] | | | +--------+ + + + [...] | | 2019 | sherrill | | DIKE SUPERVISOR [address] | | | | | | [place], [place] | | | | | | [address] | | | | | | [phone] | | | | | | | [...] | | | | | | [place], [place] | | | | | | [address] | | | | | | DrRenee [...] | | | | artery. A 5.5 Khmer | | | | | | Ozzy [...] | | + +---------+ + + | [facility] DEPARTMENT OF | | | | | RADIOLOGY | | | | + +---------+ + + documented in this encounter Visit Diagnoses Not on filedocumented in this encounter
--- OUTSIDE RECORDS SUMMARY | ~2020-03-23 | XMS | Encounter Summary ---
Demographics + + + | Address | [address] | | | [place] [address] | + + + | Home Phone | | + + + | Preferred Language | Unknown | + + + | Marital Status | | + + + | Pentecostal Affiliation | Unknown | + + + | Race | White | + + + | Ethnic Group | Not or | + + + Author + + + | Author | [facility] | | | and [place] | + + + | Organization | [facility] | | | [...] Team Providers + +------+ + | Care Model Maker Fiberglass Name | Role | Phone | + +------+ + | Jorje Hill | PCP | | + +------+ + Encounter Details +--------+ + + + + | Date | Type | Department | Care Team | Description | +--------+ + + + + | 01/04/ | Virtual | [facility] | Augustine Fu MD | Hypokalemia (Primary | | 2020 | Office | NEPHROLOGY [place] | [address] [place] | Dx); Bilateral leg | | | Visit | [address] [place] | [address] [place], [place] | edema; Class 3 | | | | [address] [place], [place] | [address] | obesity with | | | | [address] | | alveolar | | | | [phone] | | hypoventilation | | | | | | without serious | | | | | | comorbidity with | | | | | | body mass index | | | | | | (BMI) of 40.0 to | | | | | | 44.9 in adult ([facility]); | | | | | | Hyperuricemia | +--------+ + + + + Social [...] of this encounter Patient Instructions Patient Instructions Augustine Fu MD - 01/05/2020 9:40 AM PDTDiscussions/Recommendations : I discussed today with Ms. Cristina the meaning of her hypokalemia and the interaction of t hat with her diuretics. I stressed the importance of avoiding getting dehydrated if we are to have a chance at h elping preserve her renal function; she showed good understanding. She will strictly abide by a low salt & low purine diet. She will avoid all kinds of NSAIDs for analgesia. Also: I liberalized the potassium in her diet. No changes to vasoactive medications. I advised her to exercise regularly but safely & to try to lose weight methodically; She voiced good understanding. Discussed to avoid alcohol and caffeine. Patient has expressed understanding of today's instructions, all questions have been ans wered to their satisfaction and written instructions have been provided. She will f/u with her Endocrinology team as directed. She will F/U with your office regularly. She will come back to [facility] on as needed basis. documented in this encounter Progress Notes Augustine Fu MD - 01/05/2020 9:40 AM PDT Patient Active Problem List Diagnosis Date Noted POA Bilateral leg edema 01/05/2020 Unknown Hyperparathyroidism 10/28/2019 Unknown History of bariatric surgery 04/28/2019 Unknown Nonallopathic lesion of cervical region 02/17/2019 Unknown Abdominal hernia 02/17/2019 Unknown Chronic maxillary sinusitis 02/17/2019 Unknown Anxiety disorder 02/17/2019 Unknown Diverticulitis of colon 02/17/2019 Unknown Dysuria 02/17/2019 Unknown Elevated international normalized ratio (INR) 02/17/2019 Unknown Persistent insomnia 02/17/2019 Unknown Pharyngitis 02/17/2019 Unknown Physical deconditioning 02/17/2019 Unknown Postoperative pain 02/17/2019 Unknown Stasis dermatitis 02/17/2019 Unknown Thromboembolism of vein 02/17/2019 Unknown Recurrent ventral hernia 02/17/2019 Unknown Bipolar disorder 02/03/2019 Unknown STEFANO (iron deficiency anemia) 02/03/2019 Unknown History of Frandy-en-Y gastric bypass 04/26/2018 Unknown History of sinus tachycardia 04/26/2018 Unknown History of stroke 04/26/2018 Unknown Impaired intestinal absorption 03/10/2018 Unknown History of pulmonary embolism 02/02/2017 Unknown Mixed hyperlipidemia 02/02/2017 Unknown Personal history of DVT (deep vein thrombosis) 02/02/2017 Unknown Severe muscle deconditioning 02/02/2017 Unknown Hyperuricemia 04/21/2016 Unknown Hypokalemia 04/21/2016 Unknown Chronic diastolic heart failure 12/25/2015 Unknown Hypothyroidism 08/28/2014 Unknown Migraine headache 12/05/2013 Unknown Candidal intertrigo 06/16/2013 Unknown Hernia of anterior abdominal wall 06/16/2013 Unknown PCOS (polycystic ovarian syndrome) 06/16/2013 Unknown Skin breakdown 06/16/2013 Unknown Vitamin D deficiency 06/16/2013 Unknown Nonallopathic lesion of thoracic region 03/14/2013 Unknown Nausea and vomiting 03/14/2013 Unknown Obesity 03/14/2013 Unknown Ventral incisional hernia 11/01/2012 Unknown Dysmenorrhea 06/22/2012 Unknown Staphylococcal infectious disease 10/21/2011 Unknown Furuncle 10/01/2011 Unknown Anal pain 08/06/2011 Unknown External hemorrhoids without complication 08/06/2011 Unknown Internal hemorrhoids without complication 08/06/2011 Unknown Atopic dermatitis 04/21/2011 Unknown Gastroesophageal reflux disease 04/14/2011 Unknown Open wound of anterior abdominal wall 10/15/2010 Unknown Allergic rhinitis due to pollen 01/30/2010 Unknown Family history of malignant neoplasm of genital organ 11/27/2009 Unknown Family history of arthritis 11/27/2009 Unknown Family history of asthma 11/27/2009 Unknown Family history of diabetes mellitus 11/27/2009 Unknown Family history of ischemic heart disease 11/27/2009 Unknown Family history of malignant neoplasm of gastrointestinal tract 11/27/2009 Unknown Family history of malignant neoplasm of trachea, bronchus, and lung 11/27/2009 Unknown Family history of mental disorder 11/27/2009 Unknown Family history of neurological disorder 11/27/2009 Unknown Family history of stroke 11/27/2009 Unknown Family history of sudden 11/27/2009 Unknown Osteoarthritis of knee 11/27/2009 Unknown Pain in joint 11/27/2009 Unknown Pain in joint involving pelvic region and thigh 11/27/2009 Unknown Primary localized osteoarthritis of pelvic region and thigh 11/27/2009 Unknown Variants of migraine with intractable migraine 11/27/2009 Unknown HTN, goal below 130/80 11/27/2009 Unknown Sleep apnea with use of continuous positive airway pressure (CPAP) 11/27/[address] Hill: I saw your patient Ms. Cristina today. As you are familiar with her case, I will not state h er past history in detail. Briefly, she is a 44 y.o. female patient with past history as de lineated above. She is here to follow up on her prior hypokalemia. She had hypokalemia for the first time in 10/2015 she experienced muscle twitching, weakness & was found to have sev erely low potassium. For peripheral edema she has been on diuretics for some time. She is fo llowed by cardiology as well. She had gastric bypass surgery February 2018, steadily losing weight. She lives at home with her mother in [place]. She says that she feels 'good ' today. Mild stress incontinence. She's had leg edema since mid 2014. +ve history of passing kidne y stones. She reports she has chronic pain and currently on a fentanyl patch changed every 3 days. She denies any significant blurred vision tinnitus, headache, fever, chills, or cough. No v omiting; no diarrhea, melena. No palpitation, loss of consciousness, orthopnea, paroxysmal nocturnal dyspnea; No dysuria, hematuria or symptoms of UTI. She has 2 times nightly nocturia. She does have significant headaches, abdominal pain, rectal bleeding. For these with your o ffice & with other specialists. The following portions of the patient's history were reviewed and updated as appropriate: a llergies, current medications, past medical history, past social history, past surgical hist ory, family history and problem list. As in History of Present Illness & in Assessment. All the pertinent systems were reviewed a nd were otherwise negative. Current Outpatient Medications: ALPRAZolam (XANAX) 0.5 mg tablet, Take 0.5-1 mg by mouth 3 times daily as needed., Dis p: , Rfl: ascorbic acid (VITAMIN C) 500 MG tablet, Take 1,000 mg by mouth Daily., Disp: , Rfl: atenolol (TENORMIN) 50 mg tablet, Take 1 tablet by mouth nightly., Disp: 30 tablet, Rf l: 11 Fzgwtha-Vnouzdvfv-Grrnrlq D (CITRACAL CALCIUM+D PO), Take 4 tablets [...] Rfl: potassium chloride 20 mEq CR tablet, potassium chloride ER 20 mEq tablet,extended rele ase TAKE Two TABLETS BY MOUTH 2 TIMES DAILY, Disp: , Rfl: pramipexole (MIRAPEX) 0.125 MG tablet, pramipexole 0.125 mg tablet-2 tablets qhs, Disp : , Rfl: rizatriptan (MAXALT-BANQUET MANAGER) 5 mg disintegrating tablet, Take 5 mg by mouth as needed for Migraine. May repeat in 2 hours if needed, Disp: , Rfl: spironolactone (ALDACTONE) 50 mg tablet, Take 50 mg by mouth Daily., Disp: , Rfl: thyroid (COMMERCIAL RELIEF DRIVER THYROID) 30 mg tablet, COMMERCIAL RELIEF DRIVER Thyroid 30 mg tablet TAKE ONE TABLET BY MOUTH O NCE DAILY, Disp: , Rfl: topiramate (TOPAMAX) 50 MG tablet, 100 mg 3 times daily., Disp: , Rfl: torsemide (DEMADEX) 100 mg tablet, Take 100 mg by mouth 2 times daily., Disp: , Rfl: warfarin (COUMADIN) 5 mg tablet, Take 5 mg by mouth Daily., Disp: , Rfl: Physical Exam: There were no vitals taken for this visit. General appearance: Pleasant, not in acute distress. Neck: Supple without tracheal deviation or jugular venous distension. Head and ENT: Head is atraumatic. Hearing is appropriate. Eyes: Anicteric. The extraocular muscle movements are normal. Lungs: Good chest expansion. Breathing comfortably. Musculoskeletal: No swelling of hand joints bilaterally. No deformities noted. Extremities: Warm to touch with trace leg edema, as performed by pateint after coaching on how to do it by myself. There is no digital cyanosis. Skin: There are no rashes, petechiae, or ecchymosis in the visible parts of the skin. Neurological: Awake, alert, and oriented to time, place, and person. Normal gross motor po wer. There is no asterixis. Psychiatric: The patient s behavior is normal. Judgment and thought content are normal. Lab Results Component Value Date HGB 13.3 01/04/2020 HGB 14.6 12/07/2018 NA 138 01/04/2020 NA 138 01/04/2020 K 3.4 (A) 01/04/2020 K 3.4 (A) 01/04/2020 CL 100 01/04/2020 CL 100 01/04/2020 CO2 26 01/04/2020 CO2 26 01/04/2020 BUN 15 01/04/2020 BUN 15 01/04/2020 BUN 16 12/17/2018 CREA 0.85 01/04/2020 CREA 0.85 01/04/2020 CALCIUM 8.3 (A) 01/04/2020 CALCIUM 8.3 (A) 01/04/2020 ALBUMIN 3.7 01/04/2020 ALBUMIN 3.7 01/04/2020 EGFR 73.0 01/04/2020 EGFR 73.0 01/04/2020 PTH 308.8 (A) 12/07/2018 LABPROT 722.2 (A) 09/27/2018 Lab Results Component Value Date BUN 12 12/07/2018 CREATININE 0.88 12/07/2018 EGFR 71 12/07/2018 NA 141 12/07/2018 K 4.2 12/07/2018 CL 100 12/07/2018 CO2 31 12/07/2018 CA 9.6 12/07/2018 PHOS 3.6 12/07/2018 MG 1.8 12/07/2018 ALB 3.9 12/07/2018 HGB 14.6 12/07/2018 URICACID 8.0 (A) 12/07/2018 WBC 11.1 (A) 12/07/2018 HCT 44.3 12/07/2018 LABPROT 722.2 (A) 09/27/2018 *Cardiac echo done 2016: 1. See Dictation. TDS. Sinus. 2. Cardiac chamber dimensions g rossly NML. LV systolic and diastolic functions grossly NML, unable to assess segmental wa ll motion, Pickens visually estimates LVEF >70%. RV grossly NML. [...] parietal occipital infarct. Correlate with clinical history. Assessment: Ms. Cristina is a 44 y.o. female patient with an improved hypokalemia; this is in the setting of loop diuresis. RENAL FUNCTION: Normal GFR BLOOD PRESSURE: Reports it controlled, ok in the office BLOOD SUGAR: Reports it controlled ELECTROLYTES: Hypo K better with supplement ANEMIA: None VITAMIN D: To be checked thru your office URIC ACID: Slight improvement PROTEINURIA: Mild URINALYSIS: No UTI or hematuria VOLUME STATUS: Euvolumic Discussions/Recommendations: I discussed today with Ms. Cristina the meaning of her hypokalemia and the interaction of t hat with her diuretics. I stressed the importance of avoiding getting dehydrated if we are to have a chance at h elping preserve her renal function; she showed good understanding. She will strictly abide by a low salt & low purine diet. She will avoid all kinds of NSAIDs for analgesia. Also: I liberalized the potassium in her diet. No changes to vasoactive medications. I advised her to exercise regularly but safely & to try to lose weight methodically; She voiced good understanding. Discussed to avoid alcohol and caffeine. Patient has expressed understanding of today's instructions, all questions have been ans wered to their satisfaction and written instructions have been provided. She will f/u with her Endocrinology team as directed. She will F/U with your office regularly. She will come back to [facility] on as needed basis. I spent 15 minutes of this 25-minute visit in education, counseling and answering all of he r questions to her satisfaction. Thank you Dr. Cardenas for the opportunity to follow up with this patient and be part of the c are team. Please do not hesitate to call me at any time with questions or concerns. Truly yours, Augustine Fu MD This exam was initially conducted via a secure 256-bit AES encrypted bidirectional video se ssion. You have chosen to receive care through the use of telemedicine. Telemedicine enables [facility] care providers at different locations to [...] are you physically located right now? Answer: Patient confirms they are located in a state where I, Augustine Fu MD am licensed. documented in this enco unter Plan of [...] RICHEY | | | | | | [place] [address] | | | | | | [phone] | | | | | | | | +--------+ + + + + | 04/18/ | Procedure | Neurology | Camille De La Paz, | | | 2019 | visit | | [address] | | | | | | [address] | | | | | | [place] [address] | | | | | | [phone] | | | | | | | | +--------+ + + + + documented as of this encounter Visit Diagnoses + + | Diagnosis | + + | Hypokalemia - Primary Hypopotassemia | + + | Bilateral leg edema Edema | + + | Class 3 obesity with alveolar hypoventilation without serious comorbidity with body | | mass index (BMI) of 40.0 to 44.9 in adult (HCC) | + + | Hyperuricemia Other abnormal blood chemistry | + + documented in this encounter
--- OUTSIDE RECORDS SUMMARY | ~2020-03-23 | XMS | Encounter Summary ---
Demographics + + + | Address | [address] | | | [place] [address] | + + + | Home Phone [...] + | Katalina Padilla | ECON | [address] | | | | | [place], [place] | | | | | [address] | | + + + + + | Ellie Vang | ECON | Unknown | | + + + + + Care Team Providers + +------+ + | Care Bending Roll Operator Name | Role | Phone | + +------+ + | Fadi Goodrich DO | PCP | | + +------+ + Encounter Details +--------+ + + + + | Date | Type | Department | Care Team | Description | +--------+ + + + + | 10/27/ | Abstract | Digestive Health | Clinic, Surgery | | | 2018 | | [place] [facility] [address] | | | | | | [facility] | | | | | | for Health and | | | | | | [facility], [facility] [address] | | | | | | [place], [place] | | | | | | [address] | | | | | | [phone] | | | +--------+ + + + [...] | | 2019 | sherrill | | FINANCIAL INTERNSHIP [address] | | | | | | [place], [place] | | | | | | [address] | | | | | | [phone] | | | | | | | | +--------+ + + + + documented as of this encounter Visit Diagnoses Not on filedocumented in this encounter"
--- OUTSIDE RECORDS SUMMARY | ~2020-03-23 | XMS | Encounter Summary ---
Demographics + + + | Address | [address] | | | [place] [address] | + + + | Home Phone [...] + | Katalina Padilla | ECON | [address] | | | | | [place], [place] | | | | | [address] | | + + + + + | Ellie Vang | ECON | Unknown | | + + + + + Care Team Providers + +------+ + | Care Quality Engineer Medical Device Name | Role | Phone | + +------+ + | Fadi Goodrich DO | PCP | | + +------+ + Encounter Details +--------+ + + + + | Date | Type | Department | Care Team | Description | +--------+ + + + + | 02/10/ | Abstract | Digestive Health | Hernandez Brian, | | | 2012 | | [place] [address] [address] | [address] [facility] | | | | | [address] [facility] | [facility] | | | | | for [facility] and | [place], [place] | | | | | [facility] 2 | [address] | | | | | [place], [place] | [phone] | | | | | [address] | | | | | | [phone] | | | +--------+ + + + [...] | 2019 | sherrill | | [employer] W[employer] [address] | | | | | | [place], [place] | | | | | | [address] | | | | | | [phone] | | | | | | | | +--------+ + + + + documented as of this encounter Visit Diagnoses Not on filedocumented in this encounter"
--- OUTSIDE RECORDS SUMMARY | ~2020-03-23 | XMS | Encounter Summary ---
Demographics + + + | Address | [address] | | | [place] [address] | + + + | Home Phone [...] + | Katalina Padilla | ECON | [address] | | | | | [place], [place] | | | | | [address] | | + + + + + | Ellie Vang | ECON | Unknown | | + + + + + Care Team Providers + +------+ + | Care Getterer Name | Role | Phone | + [...] | Pain | Diagnoses | Destini | Electric Power Superintendent Psych | | | | Management | Morbid | KAIN Bruner | [facility] [address] | | | | | obesity with | [address] | | | | | BMI of [address] | Center for | | | | | and over, | [place], [place] | Health and | | | | | adult (HCC) | [address] | Healing, | | | | | Procedures | Phone: | Building | | | | | CONSULT TO | [phone] | 1,15th Floor | | | | | PAIN | Fax: | [place], [place] | | | | | MANAGEMENT | [phone] | [address] | | | | | [place] | | Phone: | | | | | PSYCHIATRIC | | [phone] | | | | | DIAGNOSTIC | | Fax: | | | | | EVAL, NO MED | | [phone] | | | | | [facility] [place] | | | | | | | PSYCH TSTNG | | | | | | | PSYCH/PHYS | | | +--------+---------+ + + + + Encounter Details +--------+---------+ + + + | Date | Type | Department | Care Team | Description | +--------+---------+ + + + | 10/02/ | Office | [facility] | Leslie Mistry, | Morbid obesity | | 2018 | Visit | [address] | PhD [address] | ([facility]); Bipolar | | | | [facility] | [facility] | affective disorder, | | | | and Healing, | [place], [place] | remission status | | | | | [address] | unspecified ([facility]); | | | | Floor [place], [place] | [phone] | BMI 60.0-69.9, adult | | | | [address] | | ([facility]); Anxiety | | | | [phone] | | | +--------+---------+ + + + [...] Name: Elzbieta Cristina : 1975 Medical Record: [id number] Age: 42 y.o. Weight today, per patient report: 305 lbs Weight on 09/11/17: 389, BMI 73.54 Identifying Information: Elzbieta Cristina is a 42 y.o. female who lives with her mother in [place], [place]. She was referred for psychological evaluation [...] of cereal with skim milk and a anguillan yogurt L: white bread and cheese and [...] Social History: Elzbieta Cristina was born in [place] and lived with her mother and sister. [...] time I spent was approximately 60 minutes [id number] with the patient and approxima tely 2 hours of try-rfpa-qk-face testing, interpreting and synthesizing results. Leslie Mistry, PhD Clinical Psychologist [facility] [address] [place] [address] Health and [facility], [address]th [place] [address] [id number] signed by Leslie Mistry, PhD at 10/08/2017 12:26 PM PDTdocume nted in this encounter Plan of Treatment +--------+ + + + + | Date | Type | Specialty | Care Team | Description | +--------+ + + + + | 04/04/ | Telephone-S | Surgery | Ora Cristobalica, | | | 2019 | sherrill | | WELLHEAD PUMPER [address] | | | | | | [place], [place] | | | | | | [address] | | | | | | [phone] | | | | | | | [...]
--- OUTSIDE RECORDS SUMMARY | ~2020-03-23 | XMS | Encounter Summary ---
Demographics + + + | Address | [address] | | | [place] [address] | + + + | Home Phone [...] + | Katalina Padilla | ECON | [address] | | | | | [place], [place] | | | | | [address] | | + + + + + | Ellie Vang | ECON | Unknown | | + + + + + Care Team Providers + +------+ + | Care Orthotist Name | Role | Phone | + [...] | [address] | Ave [facility] [place] | | | | | for Health and | [address] | | | | | Healing, [facility] 2 | [phone] | | | | | [place], [place] | | | | | | [address] | | | | | | [phone] | | | +--------+ + + + [...] | | 2020 | cheduled | | HARDSCAPE FOREMAN [address] | | | | | | [place], [place] | | | | | | [address] | | | | | | [phone] | | | | | | | | +--------+ + + + + documented as of this encounter Visit Diagnoses Not on filedocumented in this encounter"
--- OUTSIDE RECORDS SUMMARY | ~2020-03-23 | XMS | Encounter Summary ---
Demographics + + + | Address | [address] | | | [place] [address] | + + + | Home Phone [...] Providers + +------+ + | Care Electric Knife Operator Name | Role | Phone | [...] [address] | | | | | CPARICE SPARKS | [facility] [address] | | | | | [place], [place] | [place] [address] | | | | | [address] | [phone] | | | | | [phone] | | | +--------+ + + + [...] R[place]HEY | | | | | | [place] [address] | | | | | | [phone] | | | | | | | | +--------+ + + + + | 04/18/ | Procedure | Neurology | Camille De La Paz, | | | 2019 | visit | | MD Saumya MOE | | | | | | [place] | | | | | | [place] [address] | | | | | | [phone] | | | | | | | [...] | | to assess segmental wall motion, [place] visually estimates LVEF | | | >70%. [...] assess | | | segmental wall motion, [place] visually estimates LVEF >70%. RV | | [...] not well visualized. MEASUREMENTS | | | Import Dispatcher: JESSICA Authenticated by: Edson Cruz DO | | | Report Date/Time: 01-02-2016 19:12:36 | | + + + + + | Procedure Note | + + | Aditya, Rad Conversion - 03/17/2019 8:31 PM PDT Patient Name: Sherrell Cristina | | : 1975 Performing Physician: Edson Cruz | | DO INDICATIONS S | | OB CONCLUSIONS 1. See Dictation. TDS. Sinus. 2. Cardiac chamber dimensions | | grossly NML. LV systolic and diastolic functions grossly NML, unable to assess | | segmental wall motion, [place] visually estimates LVEF >70%. RV grossly NML. [...] | IVC was not well visualized. MEASUREMENTS Import Dispatcher: HONEYuthenticated by: | | Edson Jones Date/Time: 01-02-2016 19:12:36 IMPRESSION: 1. See Dictation. | | TDS. Sinus. 2. Cardiac chamber dimensions grossly NML. LV systolic and diastolic | | functions grossly NML, unable to assess segmental wall motion, [place] visually estimates | | LVEF >70%. RV [...] | |MEASUREMENTS | | | | | |Import Dispatcher: | |Authenticated by: Edson Cruz DO | |Report Date/Time: 01-02-2016 19:12:36 | | | |IMPRESSION: | |1. See Dictation. TDS. Sinus. 2. Cardiac chamber dimensions grossly NML. LV systolic and diastolic functions grossly NML, unable to assess segmental wall motion, [place] visually es rosalind LVEF >70%. RV grossly | |NML. 3. Aortic valve sclerotic, no /AI | | observed. Mitral and Tricuspid valves grossly NML, Pulmonic valve not seen well. Trace T R. 4. No Pericardial effusion. 5. IVC not seen well. | + + documented in this encounter Visit Diagnoses Not on filedocumented in this encounter"
--- OUTSIDE RECORDS SUMMARY | ~2020-03-23 | XMS | Encounter Summary ---
Demographics + + + | Address | [address] | | | [place] [address] | + + + | Home Phone [...] + + + | Author | [facility] | | | and Jeffana | + + + | Organization | [facility] | | | and [...] Providers + +------+ + | Care Maintenance Groundskeeper Name | Role | Phone | + +------+ + | Jorje Hill | PCP | | + +------+ + Reason for Visit +--------+--------+ + | Reason | Onset | Comments | | | Date | | +--------+--------+ + | Pre-Op | 06/21/ | confirm arrival for 06/22 procedure | | | 2018 | | +--------+--------+ + Encounter Details +--------+ + + + + | Date | Type | Department | Care Team | Description | +--------+ + + + + | 06/21/ | Telephone | [facility] | Christian Dawson, | Pre-Op (confirm | | 2018 | | CENTER CV INTRA OP | MD [address]ya [address] | arrival for 06/22 | | | | [address] | [place], | procedure) | | | | [place] | [place] [address] | | | | | [address] | [phone] | | | | | [phone] | | | +--------+ + + + [...] this encounter Miscellaneous Notes Telephone Encounter - Lashonda Hill CNA - 06/21/2019 4:13 PM PSTConfirm arrival for 05/28 7 procedure documented in this encounter Plan of Treatment +--------+ + + + + | Date | Type | Specialty | Care Team | Description | +--------+ + + + + | 03/29/ | Office | Cardiology | Sulema Altamirano | | | 2019 | Visit | | [address] | | | | | | [address] | | | | | | [facility] [place] [address] | | | | | | [phone] | | | | | | | | +--------+ + + + + | 04/18/ | Procedure | Neurology | Camille De La Paz, | | | 2019 | visit | | [address] | | | | | | [address] [address] | | | | | | [place] [address] | | | | | | [phone] | | | | | | | | +--------+ + + + + documented as of this encounter Visit Diagnoses Not on filedocumented in this encounter"
--- OUTSIDE RECORDS SUMMARY | ~2020-03-23 | XMS | Encounter Summary ---
Demographics + + + | Address | [address] | | | [place] [address] | + + + | Home Phone [...] [place], [place] | | | | | [address] | | + + + + + | Ellie Vang | ECON | Unknown | | + + + + + Care Team Providers + +------+ + | Care News Copy Editor Name | Role | Phone | [...] | | 2020 | sarahiduled | | HYDRAULIC MINER BLASTING [address] | | | | | | [place], [place] | | | | | | [address] | | | | | | [phone] | | | | | | | | +--------+ + + + + documented as of this encounter Visit Diagnoses Not on filedocumented in this encounter"
--- OUTSIDE RECORDS SUMMARY | ~2020-03-23 | XMS | Encounter Summary ---
Demographics + + + | Address | [address] | | | [place] [address] | + + + | Home Phone [...] [place], [place] | | | | | [address] | | + + + + + | Ellie Vang | ECON | Unknown | | + + + + + Care Team Providers + +------+ + | Care Administrative Supervisor Name | Role | Phone | [...] | | | | | | [place], [place] | | | | | | [address] | | | | | | [phone] | | | +--------+ + + + [...] | | 2020 | cheloveled | | CIVIL ENGINEERING DRAFTER [address] | | | | | | [place] | | | | | | [address] | | | | | | [phone] | | | | | | | | +--------+ + + + + documented as of this encounter Visit Diagnoses Not on filedocumented in this encounter"
--- OUTSIDE RECORDS SUMMARY | ~2020-03-23 | XMS | Encounter Summary ---
Demographics + + + | Address | [address] | | | [place] [address] | + + + | Home Phone [...] + | Katalina Padilla | ECON | [address] | | | | | [place], [place] | | | | | [address] | | + + + + + | Ellie Vang | ECON | Unknown | | + + + + + Care Team Providers + +------+ + | Care Advertising Account Executive Name | Role | Phone | [...] | | | | | bypass | [place], [place] | Health and | | | | | Nausea and | [address] | Healing, | | | | | vomiting, | Phone: | Building [address] | | | | | intractabili | | [place], [place] | | | | | ty of | Fax: | [address] | | | | | vomiting not | [phone] | Phone: | | | | | specified, | | [phone] | | | | | unspecified | | Fax: | | | | | vomiting | | [phone] | | | | | type | [...] | | | | | | DILATION [place] | | | | | | | UPPER GI | | | | | | | ENDOSCOPY,BI | | | | | | | OPSY TX UP | | | | | | [...] [facility] [address] | MD [address] | | | | | [address] | [place], [place] | | | | | [facility] and | [address] | | | | | [facility] 2 | [phone] | | | | | [place], [place] | | | | | | [address] | | | | | | [phone] | | | +--------+ + + + [...] this encounter Miscellaneous Notes Telephone Encounter - Mayi Pacheco MA - 05/03/2018 2:05 PM PDTI spoke to the patient who reports all foods and fluids have gone down easily all weekend. She has had no gerd, no nausea or vomiting and no abdominal pain. She would like to wait a week and see how she is d oing before moving forward with an egd. I let her know I would notify the provider and call to check in next week. TTelephone Encounter - Mayi Pacheco MA - 04/30/2018 12:40 PM PDTI spoke to the patient who reports difficulty keeping any food down for 3 weeks. She feels nausea as soon as she ea ts and everything comes right back up. She is practicing eating slowly and making sure she c hews everything thoroughly. She is taking in very small amounts at a time. She went in to [facility] ED a few days ago for dehydration. They gave her IV fluids and asked that she go b ack to a liquid diet. For the last week she is even throwing up some liquids. She is being v igilant about sipping water and does not feel dehydrated. She has no pain anywhere and her b owels are moving normally. She does not feel like the food is sticking, just not settling in her stomach. I le6t her know that I would share her symptoms with a provider and call her b ack with recommendations. Patient understands and agrees to this plan. elephone Encounter - Laura Garcia - 4:01 PM PDTVOICEMAIL LEFT ON 04/29 @ 12:38 Pt is unable to keep anything down, zofran is not working. Pt seeks call back. documented in this encou nter Plan of Treatment +--------+ + + + + | Date | Type | Specialty | Care Team | Description | +--------+ + + + + | 04/04/ | Telephone-S | Surgery | Orquidea Cristobal, | | | 2019 | cheduled | | MICROFICHE CAMERA OPERATOR [address] | | | | | | [place], [place] | | | | | | [address] | | | | | | [phone] | | | | | | | [...]
--- OUTSIDE RECORDS SUMMARY | ~2020-03-23 | XMS | Encounter Summary ---
Demographics + + + | Address | [address] | | | [place] [address] | + + + | Home Phone [...] Team Providers + +------+ + | Care Research Clerk Name | Role | Phone | + +------+ + | Jorje Hill | PCP | | + +------+ + Encounter Details +--------+ + + + + | Date | Type | Department | Care Team | Description | +--------+ + + + + | 01/05/ | Orders Only | [facility] | Augustine Fu MD | | | 2020 | | NEPHROLOGY [place] | [address] [place] | | | | | [address] [place] | [address] [place], [place] | | | | | [address] [place], [place] | [address] | | | | | [address] | | | | | | [phone] | | | +--------+ + + + [...] | | | | | [place] [address] | | | | | | [phone] | | | | | | | | +--------+ + + + + | 04/18/ | Procedure | Neurology | Camille De La Paz, | | | 2019 | visit | | [address] | | | | | | [address] | | | | | | [place] [address] | | | | | | [phone] | | | | | | | | +--------+ + + + + documented as of this encounter Visit Diagnoses Not on filedocumented in this encounter"
--- OUTSIDE RECORDS SUMMARY | ~2020-03-23 | XMS | Encounter Summary ---
Demographics + + + | Address | [address] | | | [place] [address] | + + + | Home Phone [...] + + + | Author | [facility] | | | and Jeffana | + + + | Organization | [facility] | | [...] Team Providers + +------+ + | Care Archival Studies Professor Name | Role | Phone [...] [address] | | | | | | [facility] [place] | | | | | | [address] | | | | | | [phone] | | | +--------+ + + + [...] [place] | | | | | | [place] [address] | | | | | | [phone] | | | | | | | | +--------+ + + + + | 04/18/ | Procedure | Neurology | Camille De La Paz, | | | 2019 | visit | | MD [address] | | | | | | [address] | | | | | | [place] [address] | | | | | | [phone] | | | | | | | | +--------+ + + + + documented as of this encounter Visit Diagnoses + + | Diagnosis | + + | Absence of menstruation | + + documented in this encounter"
--- OUTSIDE RECORDS SUMMARY | ~2020-03-23 | XMS | Encounter Summary ---
Demographics + + + | Address | [address] | | | [place] [address] | + + + | Home Phone [...] [place], [place] | | | | | [address] | | + + + + + | Ellie Vang | ECON | Unknown | | + + + + + Care Team Providers + +------+ + | Care Port Captain Name | Role | Phone | + [...] floor | | | | | | [place], [place] | | | | | | [address] | | | +--------+ + + + [...] | | 2019 | cheduled | | WATER PURIFIER OPERATOR [address] | | | | | | [place] | | | | | | [address] | | | | | | [phone] | | | | | | | | +--------+ + + + + documented as of this encounter Visit Diagnoses Not on filedocumented in this encounter"
--- OUTSIDE RECORDS SUMMARY | ~2020-03-23 | XMS | Encounter Summary ---
Demographics + + + | Address | [address] | | | [place] [address] | + + + | Home Phone [...] [place], [place] | | | | | [address] | | + + + + + | Ellie Vang | ECON | Unknown | | + + + + + Care Team Providers + +------+ + | Care Singer Back Tender Name | Role | Phone | + +------+ + | Fadi Goodrich DO | PCP | | + +------+ + Encounter Details +--------+ + + + + | Date | Type | Department | Care Team | Description | +--------+ + + + + | 07/19/ | Abstract | Digestive Health | Kathy Feldman, | | | 2012 | | [place] [address] [address] | FIBERGLASS GRINDER [address] | | | | | [address] [facility] | [facility] [address] | | | | | for Health and | [place], [place] | | | | | [facility] 2 | [address] | | | | | [place], [place] | [phone] | | | | | [address] | | | | | | [phone] | | | +--------+ + + + [...] | | 2019 | sherrill | | FIRE EXTINGUISHER REPAIRER INSPECTOR [address] | | | | | | [place], [place] | | | | | | [address] | | | | | | [phone] | | | | | | | | +--------+ + + + + documented as of this encounter Visit Diagnoses Not on filedocumented in this encounter"
--- OUTSIDE RECORDS SUMMARY | ~2020-03-23 | XMS | Encounter Summary ---
Demographics + + + | Address | [address] | | | [place] [address] | + + + | Home Phone [...] + | Katalina Padilla | ECON | [address] | | | | | [place], [place] | | | | | [address] | | + + + + + | Ellie Vang | ECON | Unknown | | + + + + + Care Team Providers + +------+ + | Care Employment Coach Name | Role | Phone | + +------+ + | Fadi Goodrich DO | PCP | | + +------+ + Encounter Details +--------+------+ + + + | Date | Type | Department | Care Team | Description | +--------+------+ + + + | 06/16/ | Lab | Laboratory at [facility] | | Morbid obesity with | | 2012 | | [address] | | BMI of 70 and over, | | | | Center for [facility] | | adult (HCC); Vitamin | | | | and Healing, | | D deficiency | | | | Building [address] | | disease; | | | | [place], [place] | | Intertriginous | | | | [address] | | candidiasis; | | | | [phone] | | Diabetes mellitus | | | [...] | | | | | | obesity ([facility]); PCOS | | | | | [...] | | 2020 | cheduled | | CLINICAL STATISTICS MANAGER [address] | | | | | | [place], [place] | | | | | | [address] | | | | | | [phone] | | | | | | | [...] | | | PST | over, adult ([facility]) | results section. | | | | | Vitamin D deficiency | | | | | | disease | | | | | | Intertriginous | | | | | | candidiasis | | | | | | 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| | ([facility]) HTN | | | | | [...] at | | | | | | [email or web address] | | | | | | [...] [place] | | | | | | [address] | | | | | | [phone].[facility]. | | | | | | Mt [...] at | | | | | | [facility] | | | | | | developed and | | | | | | characteristics | | | | | | determined by | | | | | | [facility]. See | | | | | | Compliance Statement B: | | | | | | [place]/CS | | | | + + + + + + + + | Specimen | + + | Blood - Blood | + + + + + + + | Performing | Address | City/State/Zipcode | Phone Number | | Organization | | | | + + + + + | [facility] | [address] | [place], [place] | | | [facility] | | [address] | | + + + + + [...]
--- OUTSIDE RECORDS SUMMARY | ~2020-03-23 | XMS | Encounter Summary ---
Demographics + + + | Address | [address] | | | [place] [address] | + + + | Home Phone [...] [place], [place] | | | | | [address] | | + + + + + | Ellie Vang | ECON | Unknown | | + + + + + Care Team Providers + +------+ + | Care Heel Lining Paster Name | Role | Phone | + +------+ + | Fadi Goodrich DO | PCP | | + +------+ + Encounter Details +--------+ + + + + | Date | Type | Department | Care Team | Description | +--------+ + + + + | 10/19/ | Abstract | Digestive Health | Clinic, Surgery | | | 2017 | | [place] [facility] [address] | | | | | | [facility] | | | | | | for Health and | | | | | | [facility] 2 | | | | | | [place], [place] | | | | | | [address] | | | | | | [phone] | | | +--------+ + + + [...] | | 2019 | sherrill | | SUPERVISOR SKI PRODUCTION [address] | | | | | | [place], [place] | | | | | | [address] | | | | | | [phone] | | | | | | | | +--------+ + + + + documented as of this encounter Visit Diagnoses Not on filedocumented in this encounter"
--- OUTSIDE RECORDS SUMMARY | ~2020-03-23 | XMS | Encounter Summary ---
Demographics + + + | Address | [address] | | | [place] [address] | + + + | Home Phone [...] [place], [place] | | | | | [address] | | + + + + + | Ellie Vang | ECON | Unknown | | + + + + + Care Team Providers + +------+ + | Care School Transportation Supervisor Name | Role | Phone | + +------+ + | Jorje Hill MD | PCP | | + +------+ + Reason for Visit + +--------+ + | Reason | Onset | Comments | | | Date | | + +--------+ + | Medication Question | 02/23/ | Phentermine | | | 2020 | | + [...] [address] | (Phentermine) | | | | [facility] at | [place], [place] | | | | | [place] [address] | [address] | | | | | [facility] | [phone] | | | | | [facility] | | | | | | [place], [place] | | | | | | [address] | | | | | | [phone] | | | +--------+ + + + [...] Telephone Encounter - Eda Morris MA - 02/24/2020 2:51 PM PDTCalled in a verbal order for Phentermine 37.5mg [facility] [address] [place] [address] [phone] signed by Eda Morris MA at 02/24/2020 2:52 PM PDTTelephone Encounter - Ellie Dumont - 02/24/2020 1:32 PM PDTPt is calling regarding Rx for Phentermine. Pharmacy did not receive fax and pt is out of medication. Please refax and call pt [facility]. . elephone Encounter - Ellie Dumont - 02/24/2020 1:31 PM PDTREFILL REQUEST Person calling[facility] Medication(s) Needed: Phentermine Pharmacy (Name & Location) Preference: [facility] How many days worth of medication does patient have left? Please refax Rx ~~~ ROUTE TO P CAR MED REFILL ~~~ ~~~ If less than 2 days on hand, route as HIGH PRIORITY~~~ elephone Encounter - Ellie Dumont - 02/24/2020 12:00 PM PDTPt called to check status of Rx. [facility] pharmacy has not rece ived Rx. Please resend Rx for PHENTERMINE 37.5 mg oral tablet. Pt is out of medication. Vianca sousa call pt to confirm ph: [phone]. 12 :03 PM PDTTelephone Encounter - Marcus Dorseya - 02/24/2020 10:01 AM PDTREFILL REQUEST Person calling: Elzbieta Cristina Patient states that medication approval has not been received by pharmacy. Please call roel marcelino Medication(s) Needed: PHENTERMINE 37.5 mg oral tablet Pharmacy (Name & Location) Preference: [facility] - [place], [place] [address] [address] [phone] How many days worth of medication does patient have left? Patient is out, ~~~ ROUTE TO P CAR MED REFILL ~~~ ~~~ If less than 2 days on hand, route as HIGH PRIORITY~~~ documented in this encounter Plan of Treatment +--------+ + + + + | Date | Type | Specialty | Care Team | Description | +--------+ + + + + | 04/04/ | Telephone-S | Surgery | Orquidea Cristobal, | | | 2019 | sherrill | | ELECTRIC MOTOR ANALYST [address] | | | | | | [place], [place] | | | | | | [address] | | | | | | [phone] | | | | | | | | +--------+ + + + + documented as of this encounter Visit Diagnoses Not on filedocumented in this encounter"
--- OUTSIDE RECORDS SUMMARY | ~2020-03-23 | XMS | Encounter Summary ---
Demographics + + + | Address | [address] | | | [place] [address] | + + + | Home Phone [...] + | Katalina Padilla | ECON | [address] | | | | | [place], [place] | | | | | [address] | | + + + + + | Ellie Vang | ECON | Unknown | | + + + + + Care Team Providers + +------+ + | Care Patient Intake Coordinator Name | Role | Phone | [...] floor | | | | | | [place], [place] | | | | | | [address] | | | | | | [phone] | | | +--------+------+ + + + [...] | | 2019 | sherrill | | PHYSICIAN RELATIONS SPECIALIST [address] | | | | | | [place], [place] | | | | | | [address] | | | | | | [phone] | | | | | | | [...] | + + + + + | [facility] | [address] [facility] | [place] [address] | | | SERVICES, CORE | CLARENCE [...] [facility] | [address] | [place] [address] | | | SERVICES, CORE | CLARENCE [...] + + + + + | [facility] | [address] | [place] [address] | | | SERVICES, SPECIAL | PARK [...]
--- OUTSIDE RECORDS SUMMARY | ~2020-03-23 | XMS | Encounter Summary ---
Demographics + + + | Address | [address] | | | [place] [address] | + + + | Home Phone [...] [place], [place] | | | | | [address] | | + + + + + | Ellie Vang | ECON | Unknown | | + + + + + Care Team Providers + +------+ + | Care Scenery Builder Name | Role | Phone | [...] | | 2020 | | Preventive at [facility] | MD [address] | (topiramate 100 mg | | | | [address] | [place], [place] | oral tablet TID) | | | | [facility] | [address] | | | | | and Healing, | [phone] | | | | | [address] | | | | | | [place], [place] | | | | | | [address] | | | | | | [phone] | | | +--------+--------+ + + + [...] By Ordering Provider: Last Appointment in [facility] was on 0 at 3:32 pm with Randell Franks MD. Follow Up Plan: Next Appointment in [facility] is on 03/15/20 at 11:15 am with [...] | | 2020 | sherrill | | SOAP WORKER [address] | | | | | | [place] | | | | | | [address] | | | | | | [phone] | | | | | | | | +--------+ + + + + documented as of this encounter Visit Diagnoses Not on filedocumented in this encounter"
--- OUTSIDE RECORDS SUMMARY | ~2020-03-23 | XMS | Encounter Summary ---
Demographics + + + | Address | [address] | | | [place] [address] | + + + | Home Phone [...] + | Katalina Padilla | ECON | [address] | | | | | [place], [place] | | | | | [address] | | + + + + + | Ellie Vang | ECON | Unknown | | + + + + + Care Team Providers + +------+ + | Care Mill Stenciler Name | Role | Phone | + [...] + + | 07/04/ | Telephone | [facility] | Chilo | Care Coordination | | 2019 | | Center at [facility] [address] | MD Jor[address] | (follow up) | | | | [facility] | [facility] | | | | | [facility] and | [place], [place] | | | | | [place] [address] | [address] | | | | | [place], [place] | [phone] | | | | | [address] | | | | | | [phone] | | | +--------+ + + + [...] otherwise, pt can follow up here at [facility] for evaluation and treatment. Pt informed to go to the ER for urgent symptoms. Pt verbalized understanding and agreement with plan. elephone Encounter - Konstantin jamil, Roxann Velarde - 07/04/2019 10:13 AM PSTPerson calling? (Patient, spouse, caregiver, [facility] office, etc): pt Reason for call: [...] | | 2019 | sherrill | | FLOAT TENDER [address] | | | | | | [place], [place] | | | | | | [address] | | | | | | [phone] | | | | | | | | +--------+ + + + + documented as of this encounter Visit Diagnoses Not on filedocumented in this encounter
--- OUTSIDE RECORDS SUMMARY | ~2020-03-23 | XMS | Encounter Summary ---
Demographics + + + | Address | [address] | | | [place] [address] | + + + | Home Phone [...] [place], [place] | | | | | [address] | | + + + + + | Ellie Vang | ECON | Unknown | | + + + + + Care Team Providers + +------+ + | Care Training Professional Name | Role | Phone | [...] PRINCE Giles | | | | | [place], [place] | [address] | | | [birth year]/ | | [address] | [place], [place] | | | 2012 | | [phone] | [address] | | | | | | [phone] | | | | | | | [...] yuriy tral hernia. She was transferred from [place] for surgical evaluation of possible incarcer ated [...] Cipro. POD 5 she was discharged [place], tolerating a diabetic diet. Having bowel function. [...] yuriy tral hernia. She was transferred from [place] for surgical evaluation of possible incarcer ated [...] Cipro. POD 5 she was discharged [place], tolerating a diabetic diet. Having bowel function. [...] keeping you from eating and drinking, Call [phone]. It is important to stay hydrated! If [...] taking narcotic that contain Tylenol (acetaminophen) Example: [place], Lortab, Vicodin, hydrocodone/APAP, Percocet, Tylenol #3 PAIN MEDICATIONS are ONLY REFILLED during CLINIC APPOINTMENTS. Please call [phone] to schedule an appointment. Your Follow-Up Plan Follow up with ROBIN MEJIA in 2 weeks. Contact information: [address] [facility] [address] Vitals on discharge: Ht 154.9 cm (5' [...] rom the original. [facility] DEPARTMENT OF SURGERY EMERGENCY GENERAL SURGERY Division [...] clinic [place]. [place] [phone] pager number [phone] [phone] Aminta Goodwin Md - 11/11/2012 7:40 AM PDT [facility] DEPARTMENT OF SURGERY EMERGENCY GENERAL SURGERY Division of Trauma and Critical Care Attending Physician: Andie Chun MD Progress Note Note Date: 11/11/2012 Admission Date: 11/06/2012 DYLAN ROMERO, [id number] Hospital Day #5 INTERVAL EVENTS none acute [...] mg, Rectal, DAILY PRN, Aminta Wilson MD drwdvujjea-fefvinvaopiwm-ssiqjnga (aka FIORICET) 50-325-40 mg 1 Tab, 1 [...] 15-30 mg, 15-30 mg, Oral, Q3H PRN, Ágnel Wilson MD, 30 mg at 11/11/12 1416 [...] Jayne Ponce MD, 1 mg at 11/10/12801 ioljqigmkt-cighutxdyvhav-xoagvyda (aka FIORICET) 50-325-40 mg 1 Tab, 1 [...] in preservative free NaCl 0.9% 50 mL AUTOMOTIVE SOFTWARE ENGINEER infusion, , Intravenous, KIESHA NUOUS, Aracely Ferronato, DO, 0.1 mg at 11/10/12 0748 insulin lispro (aka HUMALOG) injection, , Subcutaneous, MEALS and HS, Kaleb Wing, IMMIGRATION CASE MANAGER ketorolac (aka TORADOL) injection 30 mg, 30 [...] diet -add bowel regimen Acute pain -HM AUTOMOTIVE SOFTWARE ENGINEER, tylenol -convert to oral pain medication once [...] Fluids: LR 125ml/hr Feeding: NPO Analgesia: Dilaudid AUTOMOTIVE SOFTWARE ENGINEER Sedation: not indicated Thromboprophylaxis: enoxaparin Head of [...] Ponce MD, 1 mg at 11/09/12 0855 ulnzarbtrl-oenrkilurgbde-qpgxynqr (aka FIORICET) 50-325-40 mg 1 Tab, 1 [...] in preservative free NaCl 0.9% 50 mL AUTOMOTIVE SOFTWARE ENGINEER infusion, , Intravenous, KIESHA NUOUS, Aracely Flores [...] drainage <30ml for 24hrs Acute pain -HM AUTOMOTIVE SOFTWARE ENGINEER, tylenol Diabetes: -insulin gtt not started due [...] Fluids: LR 125ml/hr Feeding: NPO Analgesia: Dilaudid AUTOMOTIVE SOFTWARE ENGINEER Sedation: not indicated Thromboprophylaxis: enoxaparin Head of bed: > 30 Ulcer prophylaxis: pepcid Glycemic control: adequate Activity/PT/OT: Ongoing Yogurt: ABX on Probiotics:yes AMINTA WILSON MD General Surgery, R1 MarioKokoChari Michaud P - 11/08/2012 8:49 AM PDT [facility] DEPARTMENT OF SURGERY EMERGENCY GENERAL SURGERY Division of Trauma and Critical Care Attending Physician: Andie Chun MD Progress Note Note Date: 11/08/2012 Admission Date: 11/06/2012 DYLAN ROMERO, [id number] Hospital Day #2 INTERVAL EVENTS NO SUBJECTIVE Pain well controlled; has headache attributed to dilaudid AUTOMOTIVE SOFTWARE ENGINEER Tylenol did not help. Flatus: YES Tolerating [...] trials today. -DC kilgore Acute pain -HM AUTOMOTIVE SOFTWARE ENGINEER, tylenol Diabetes: -insulin gtt not started due [...] Fluids: LR 125ml/hr Feeding: NPO Analgesia: Dilaudid AUTOMOTIVE SOFTWARE ENGINEER Sedation: not indicated Thromboprophylaxis: enoxaparin Head of bed: > 30 Ulcer prophylaxis: pepcid Glycemic control: adequate Activity/PT/OT: Ongoing Yogurt: ABX on Probiotics: No KALEB WING NP [facility] [place] [address] Kelvin Lobato MD - 11/07/2012 9:51 PM [...] 7.33* PCO2 49* PO2 113* HCO3 25 JYXFH2JFD 26 J0LWNNGS 98.3* F4YIWPWNT -- FIO2 60 ABGEXCESS -0.9 Assessment, Medical Decision Making and Plan 1. Incarcerated hernia, now s/p repair and panniculectomy -Binder, pain control, minimize nausea and coughing PRN. -NG clamping trials today. 2. Acute pain -HM AUTOMOTIVE SOFTWARE ENGINEER, tylenol 3. Diabetes: -insulin gtt 4. Morbid [...] Dione Nickerson MD R-2, General Surgery Pager: [phone] [facility] [place] Department of Surgery Trauma ICU Team Pager (24hrs/day): [phone] I was present with the resident during the history and exam. I discussed the case with the resident and agree with the findings and plan as documented in the resident s note. KELVIN SPENCE MD [facility] [address] [place] [address] [id number] Onur Graves MD - 11/07/2012 2:37 AM [...] in preservative free NaCl 0.9% 50 mL AUTOMOTIVE SOFTWARE ENGINEER infusion Intravenous CON TINUOUS Aracely Flores DO [...] Onur Allen MD 150 mg at 11/06/12 0047 Assessment & Plan: Dylan Romero is a 37 y.o. Morbidly obese female who presented with an incarcerated vent ral hernia who is now POD#1 s/p primary repair. 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 dipper operator and prn tylenol, continue prozac and [...] F: probable remain NPO today A: dilaudid dipper operator, prn tylenol S: prn benzos as she is at home T: will start prophylactic lovenox today H: HOB >30 degrees U: pepcid G: insulin gtt ONUR ALLEN MD, PGY3 [facility] [address] [place] [address] Onelia Shrestha MD - 11/06/2012 8:41 AM PDT [facility] DEPARTMENT OF SURGERY Division of Trauma and Critical Care Emergency General Surgery / Acute Care Surgery Attending Physician: Andie Chun MD Note Date: 11/06/2012 Admission Date: 11/06/2012 DYLAN ROMERO, [id number] Hospital Day #0 OVERNIGHT EVENTS: anxious SUBJECTIVE: [...] wwp LABS: reviewed and are available in [employer] (if new data) IMAGING: VASCULAR: IMPRESSION: Dylan Shereen [place] is a 37 y.o. Female with multiple [...] needs fluid resuscitation. ANDIE CHUN MD [facility] [address] [facility] [place] [address] emarcus Christopher MD - 0 11/05/2012 10:24 [...] She presents today as a transfer from [place] with concern for possible incarcerated marguerite ia. [...] She presents today as a transfer from [place] with concern for possible incarcerated marguerite ia. [...] abdo stephany ventral hernia transferred to [facility] over concern for incarcerated hernia. The hernia w as non reducible, but was limited by pain on exam. Her hernia does appear incarcerated. 1. Admit to Surgery 2. NPO, NGT tube 3. MIVF with LR at 75ml/hr 4. Cbc, cmp, inr 5. Restart home medications 6. Incarcerated hernia -CT scan vs. OR today Demarcus Christopher MD, PGY1 [facility] [address] [place] [address] documented in this enc ounter Procedure Notes Dnany Liu MD - 11/07/2012 9:07 AM PDTAssociated Order(s): REPAIR, VENTRAL HERNIA, I NCARCERATED, INITIALProcedure(s): REPAIR, VENTRAL HERNIA, INCARCERATED, INITIALPre-Procedure Diagnose(s): Incarcerated ventral herniaPost-Procedure Diagnose(s): Incarcerated ventral he rniaOperative Report Identifying Data: Dylan Romero [id number] Author: Danny Liu MD Date: 11/06/2012 Attending Surgeon and Service: Attending: Hernandez Chun MD Service: Emergency General Surgery Date of Procedure: 11/06/2012 Preoperative Diagnosis: Incarcerated Ventral Hernia Postoperative Diagnosis: Same Procedure Performed: 1) Exploratory laparotomy 2) Excision of excess skin and chronic wound infection 3) Primary ventral hernia repair 4) 19Fr Round Vanesas Drain 5) Staple skin closure Primary Surgeon: Hernandez Chun MD Electronics Maintenance Technician Surgeons: MD Danny Kovacs MD Type of [...] for the entire procedure. DANNY LIU MD [address] [place] [address] ERDanny Kelsey MD - 11/06/2012 2:07 PM [...] excision of excess skin and chronic wound, [facility] ventral hernia repair, 19Fr Round Vanessa drain, [...] and skin contreras. DANNY LIU MD [facility] [address] [place] [address] documented in this encounter Consult Notes Raisa Landaverde MD - 11/06/2012 3:48 PM PDTI was present and rounded with the IMMIGRATION CASE MANAGER today. I interviewed and examined the patient. I reviewed the history, as documented today. I agr ee with the IMMIGRATION CASE MANAGER's assessment and plan. No evidence of bleeding. Will follow. Will wean to pre ssure support as tolerated. May need bronchoscopy. Critcal care time: 35 minutes RAISA [place] MD [facility] [address] [place] [address] eeveNguyen PA-C - 11/06/2012 3:48 PM PDT [...] the attending physician. NGUYEN CANSECO PA-C [facility] [address] [place] [address] documented in this en counter Miscellaneous Notes [...] be driving pt to her home in [place]. No needs from at this time. Luz [...] and mo bility progress. 5. Assess skin W7jrvlt and PRN. Educate on prevention of skin breakdown. Elevate heels and other pressure points. Ask MD to order nystatin powder for application underneath pannus. 6. Assess n/v U5txuel and PRN. Treat with PRN and/or scheduled [...] and mo bility progress. 5. Assess skin L3lxqpk and PRN. Educate on prevention of skin breakdown. Elevate heels and other pressure points. Ask MD to order nystatin powder for application underneath pannus. 6. Assess n/v B5cogag and PRN. Treat with PRN and/or scheduled anti-emetics. Educate on alt ernative techniques for nausea management (i.e. Side lying, distraction, deep breathing). andoff - Maria Luz, Claudia mujica RN - 11/12/2012 6:26 AM PDTPrimary focus of stay: 37 female admit from [place] w/ pos sible incarcerated hernia, N/V, abdominal [...] Wounds/Drains: transverse abdominal incision intact with contreras, supervising film or videotape editor, DIAMOND drain x 1, needs frequent emptying, [...] 5/10 this shift and transitioni ng off AUTOMOTIVE SOFTWARE ENGINEER 2. Patient will demonstrate adequate oxygenation and perfusion d/b spo2>90% on RA this kristin ft. Interventions: 1. Patient will be encouraged to ask for oral pain med and use AUTOMOTIVE SOFTWARE ENGINEER sparingly. 2. Encourage patient to roll on [...] much pain medication patient is using on AUTOMOTIVE SOFTWARE ENGINEER 6. Administer migraine medication PRN for headache 7. Administer 1 L O2 when patient is sleeping 8. Evaluate patient's fluid balance and discuss with MD to DC her fluid since she is now t aking decent amount of liquid intake. Interventions that worked/didn't work:Patioent seems to be very comfortable but when woken up or when moving, she co pain 8/10. AUTOMOTIVE SOFTWARE ENGINEER was not used since 99. MD did [...] -drsg changed 11/08 , LR @ 125, AUTOMOTIVE SOFTWARE ENGINEER 0.1 q 8. Oral pain med given q 3 hour s 10 to 15 mg. Please try to wean off AUTOMOTIVE SOFTWARE ENGINEER Diet/GI:, CL, passing gas, BM meds started(11/10) CBGs: q6 : voids in BR, UTI Mobility: SBA, hats in BR. Only ambulated to BR tonight Wounds/Drains: transverse abdominal incision intact with contreras, supervising film or videotape editor, DIAMOND drain x 1, needs frequent emptying, skin breakdown under pannus,wash, clean dry apply nystatin powder Critical labs: Critical meds: Antibiotics started for UTI Orders to follow up on: IV Mg replacement Last pain assessment/reassessment: abd pain 5-7/10, total 15mg oxygiven in 1.5 hours, AUTOMOTIVE SOFTWARE ENGINEER used minimally, turned off at around 4 [...] 5/10 this shift and transitioni ng off AUTOMOTIVE SOFTWARE ENGINEER 2. Patient will demonstrate adequate oxygenation and perfusion d/b spo2>90% on RA this kristin ft. Interventions: 1. Patient will be encouraged to ask for oral pain med and use AUTOMOTIVE SOFTWARE ENGINEER sparingly. 2. Encourage patient to roll on [...] much pain medication patient is using on AUTOMOTIVE SOFTWARE ENGINEER 6. Administer migraine medication PRN for headache [...] -drsg changed 11/08 , LR @ 125, AUTOMOTIVE SOFTWARE ENGINEER 0.2 q 8. Oral pain med given at 5pm Diet/GI:, CL, passing gas, BM meds started(11/10) CBGs: q6 : voids in BR, UTI Mobility: SBA, hats in BR. Only ambulated to BR tonight Wounds/Drains: transverse abdominal incision intact with contreras, supervising film or videotape editor, DIAMOND drain x 1, needs frequent emptying, [...] control Prevent infection Interventions:assess the effectiveness of AUTOMOTIVE SOFTWARE ENGINEER at least Q 4hrs, encourage IS and ambulation, monitor vital signs, notify MD for any uncontrolled pain beyond prn medications, monitor wo und. Interventions that worked/didn't work:in process Of switching dipper operator to oral pain medication, VSS, no [...] in 1-2 days. Barry Cerrato RN, BSN [employer] Manager - [place] [address] /[id number] giuliana Kevon Louise Vasyl Solitarion - 11/10/2012 9:00 AM PDTProblem: General Plan of Care (Adult) Intervention: NPEOC Acute Goals:pain under control Prevent infection Interventions:assess the effectiveness of AUTOMOTIVE SOFTWARE ENGINEER at least Q 4hrs, encourage IS and [...] will be encouraged/instructed on proper use of AUTOMOTIVE SOFTWARE ENGINEER and to inform RN if pain not [...] much pain medication patient is using on AUTOMOTIVE SOFTWARE ENGINEER 6. Administer migraine medication PRN for headache Interventions that worked/didn't work:Patient was drowsy after her night medication, barely used her AUTOMOTIVE SOFTWARE ENGINEER. Turned rate down d/t desat. May turn rate up during day time if pt is more alert. Migraine medication helps. My recommendations forward:IS during day shift, ambulate Patient Stability:Moderately Stable andoff - Bebo Albert RN - 0 11/10/2012 2:24 AM [...] -drsg changed 11/08 , LR @ 125, AUTOMOTIVE SOFTWARE ENGINEER 0.3 q 8. AUTOMOTIVE SOFTWARE ENGINEER turned down to 0.1 q 8 minutes [...] Last pain assessment/reassessment: 0445, pt drowsy but AUTOMOTIVE SOFTWARE ENGINEER was used minimally since 2330. I believe her Bipolar med and Trazadone made her drowsy. Awakable but went back to sleep ri ght away. Refused toileting when offered twice since 330. Absent of pain. pain well contro lled with AUTOMOTIVE SOFTWARE ENGINEER and prn meds Toradol, for headache, Floricet [...] will be encouraged/instructed on proper use of AUTOMOTIVE SOFTWARE ENGINEER and to inform RN if pain not [...] much pain medication patient is using on AUTOMOTIVE SOFTWARE ENGINEER 6. Administer migraine medication PRN for headache [...] /10 in abdomen, RN aware. addressed with AUTOMOTIVE SOFTWARE ENGINEER. Objective: Education: patient able to recall all [...] chair T ID Clau Quintero DPT Pager [phone] valuation - Brendon Mcgowan RN - 11/09/2012 1:05 PM PDTProblem: Pain Chronic (Adult, Obstetrics) Goal: Identify Signs and Symptoms and Related Risk Factors Goals: 1. Patient's pain will adequately controlled at or below a 5/10 this shift. 2. Patient will demonstrate adequate oxygenation and perfusion d/b spo2>90% on RA this kristin ft. Interventions: 1. Patient will be encouraged/instructed on proper use of AUTOMOTIVE SOFTWARE ENGINEER and to inform RN if pain not adequately controlled. AUTOMOTIVE SOFTWARE ENGINEER dose will be titrated for adequate pain [...] -drsg changed 11/08 , LR @ 125, AUTOMOTIVE SOFTWARE ENGINEER 0.3 q 8 Diet/GI: NPO exc meds, [...] Last pain assessment/reassessment: pain well controlled with AUTOMOTIVE SOFTWARE ENGINEER and prn meds Toradol, for headache, Nubain [...] will be encouraged/instructed on proper use of AUTOMOTIVE SOFTWARE ENGINEER and to inform RN if pain not adequately controlled. AUTOMOTIVE SOFTWARE ENGINEER dose will be titrated for adequate pain [...] Following Yuli Childs RD, CNSC, LD Pager# [phone] Comments: Dylan Romero is a 37 y.o. [...] Needs: 1440-1875kcal/day (18-23kcal/kg AdjBW), 95-120g pro/day (2-2.5g/kg IBW)Coni chitra signed by Yuli Childs RD, CSOWM, [...] mbulation and mobility progress. 5. Assess skin B4jlmaq and PRN. Educate on prevention of skin breakdown. Elevate heels and other pressure points. Ask MD to order nystatin powder for application underneath pannus. 6. Assess n/v W5bwkrm and PRN. Treat with PRN and/or scheduled anti-emetics. Educate on alt ernative techniques for nausea management Interventions that worked/didn't work:Pt continues to refuse to turn in bed, pain controlle d with AUTOMOTIVE SOFTWARE ENGINEER Dilaudid,denied nausea My recommendations forward:Encourage ambulation, good [...] -drsg changed today , LR @ 125, AUTOMOTIVE SOFTWARE ENGINEER 0.2 q 8 Diet/GI: NPO exc meds, ice chips ok, passing gas CBGs: q6 : voids Mobility: SBA, up in chair once this shift Wounds/Drains: transverse abdominal incision, DIAMOND drain x 1, skin breakdown under pannus,was h, clean dry apply nystatin and cream,pillow case x1 Critical labs: Critical meds: UA sent Orders to follow up on: Last pain assessment/reassessment: pain well controlled with AUTOMOTIVE SOFTWARE ENGINEER and prn meds Toradol, for headache, Nubain [...] mbulation and mobility progress. 5. Assess skin L5txiwi and PRN. Educate on prevention of skin breakdown. Elevate heels and other pressure points. Ask MD to order nystatin powder for application underneath pannus. 6. Assess n/v Q1tipcx and PRN. Treat with PRN and/or scheduled anti-emetics. Educate on alt ernative techniques for nausea management lan of Care - Briana Flores RCP - 11/08/2012 2:50 PM PDT Problem: RT Goals & Interventions Goal: Evaluation History and Assessment Pulmonary problems: none 0Smoking history: History Smoking status Never Smoker Smokeless tobacco Not on file Results of recent Chest X-ray: CXR * 11/06/2012 Value: STUDY: IL CHEST 1 VIEW 11/06/12 16:46:00 INDICATION: Right upper lobe opacity. COMPARISON: Earlier same day a STUDY: [place] CHEST 1 VIEW 11/06/12 16:46:00 COMPARISON: None. [...] at home for her lungs and can stock puller 1500mls on incentive spirometer. No treatment Nee ded from RT standpoint. valuation - Geneva Villalobos RN - 11/08/2012 11:58 AM PDTNo notes of Plan of Care type on file. Interventions that worked/didn't work:Goals:to get OOB, to have a sponge bath, pain managem ent, to advance diet, change CVC Interventions:assist with ambulation, 2 person, up to the chair, AUTOMOTIVE SOFTWARE ENGINEER, iv toradol, tylenol a s needed for headache, ice chips, IMMIGRATION CASE MANAGER at the bedside , reposition, help/assist student [...] -drsg changed today , LR @ 125, AUTOMOTIVE SOFTWARE ENGINEER 0.2 q 8 Diet/GI: NPO exc meds, [...] Last pain assessment/reassessment: pain well controlled with AUTOMOTIVE SOFTWARE ENGINEER and prn meds Toradol, for headache, Nubain [...] tive device. Patient used motorized scooter in [facility] only. Patient / Family Goal: To return home Communication: Czech Barriers: none Pain: 7/10 in abdomen at rest; pressed AUTOMOTIVE SOFTWARE ENGINEER appropriately Vital signs: stable per observation on [...] 5) Staple skin closure Pre-admission living situation: [place], [place] Pre-admission functional status: Independent Family/support system: Jazmyn Darden Insurance/funding in place: SERVICE STATION ATTENDANT [place] - Plus Anticipated discharge needs: Likely DC home, following for needs. Barry Cerrato RN, BSN [address] [address] [email or web address] [phone] andamy - Ramon Austin RN - 11/08/2012 2:53 AM PDTRN EGS Handoff Report Primary focus of stay: incarcerated bowel and ileus, hernia repair 11/06 PmHx: HTN, DM, bipolar, depression, anxiety, migraines Pertinent physical findings: Vitals: vitals stable, but tachy at times Respiratory status: 4L NC, diminished in bases Isolation Precautions: none Access/fluids: RIJ and L PIV, LR @ 125, AUTOMOTIVE SOFTWARE ENGINEER 0.2 q 8 Diet/GI: NPO exc meds, [...] Last pain assessment/reassessment: pain well controlled with AUTOMOTIVE SOFTWARE ENGINEER/ Pt does think Dilaudid is giving her [...] mbulation and mobility progress. 5. Assess skin M5nlcpy and PRN. Educate on prevention of skin breakdown. Elevate heels and other pressure points. Ask MD to order nystatin powder for application underneath pannus. 6. Assess n/v M2aczgw and PRN. Treat with PRN and/or scheduled [...] RIJ and L PIV, LR @ 125, AUTOMOTIVE SOFTWARE ENGINEER 0.2 q 8 Diet/GI: NPO exc meds, NGT d/c today CBGs: q6 : FC Mobility: SBA, ambulated today on ICU Wounds/Drains: transverse abdominal incision, DIAMOND drain x 1, skin breakdown under pannus Critical labs: Critical meds: insulin drip?? Orders to follow up on: clarify insulin drip order Last pain assessment/reassessment: pain well controlled with AUTOMOTIVE SOFTWARE ENGINEER Psych/social issues: can be anxious at times Last visit (i.e. Falls/Activity/Comfort/Environment/Toileting/Skin): resting comfortably Anticipated or pending procedures: possible future [place] Discharge plan: TBD lan of Care - Anthony joanna Zari, [facility] - 11/07/2012 11:10 AM PDT Problem: RT [...] Chest X-ray: CXR * 11/06/2012 Value: STUDY: IL CHEST 1 VIEW 11/06/12 16:46:00 INDICATION: Right upper lobe opacity. COMPARISON: Earlier same day a STUDY: IL CHEST 1 VIEW 11/06/12 16:46:00 COMPARISON: None. [...] mbulation and mobility progress. 5. Assess skin W0uiudk and PRN. Educate on prevention of skin breakdown. Elevate heels and other pressure points. Ask MD to order nystatin powder for application underneath pannus. 6. Assess n/v P5vpgia and PRN. Treat with PRN and/or scheduled [...] mbulation and mobility progress. 5. Assess skin N8fznni and PRN. Educate on prevention of skin breakdown. Elevate heels and other pressure points. Ask MD to order nystatin powder for application underneath pannus. 6. Assess n/v A1uotgd and PRN. Treat with PRN and/or scheduled anti-emetics. Educate on alt ernative techniques for nausea management (i.e. Side lying, distraction, deep breathing). Pl amanda NGT if ordered. andoff - Claudia Braga RN - 11/06/2012 5:42 AM PDTRN EGS Handoff Report Primary focus of stay: 37 female admit from [place] w/ possible incarcerated hernia, N/V, abdominal pain [...] in am, possible surgery? Discharge plan: TBD aro CenterBarb moraes - 11/06/2012 12:05 AM PDTDr Ny adv having trouble getting transport. Unable air. Th ey are trying to get a ground unit together. [facility] 11/05/2012 10:54 PM PDTPer PPO pt can go to 10A rm 12 om [facility] - VenicesonRyley - 11/05/2012 10:06 PM PDTConnected. 37 yof. Had appendectomy previ ously, developed hernia on L side of incision. Appears to be incarcerated possibly strangula emely. Pt 404 lbs. Unable to get CT scanned. Pt vomiting, started at [address] Chun accepts pt with a bariatric bed, req 14A. Paged grp 18. aro CentersonRyley - 11/05/2012 10:[address] Ramires. Paged EGS [address] Chun. documented in this encounter Plan of Treatment +--------+ + + + + | Date | Type | Specialty | Care Team | Description | +--------+ + + + + | 04/04/ | Telephone-S | Surgery | Orquidea Cristobal, | | | 2020 | cheduled | | COMMUNICATIONS PROFESSIONAL [address] | | | | | | [place], [place] | | | | | | [address] | | | | | | [phone] | | | | | | | [...] + +--------+ + + + | [facility] (ART) POC | Routin | 11/06/2012 | [...] Mae | | | | | | [place] | | | | + + + [...] [facility] | [address] | [place], [place] | | | [facility] [facility]INT OF CARE | [address] | [address] | | | TESTS | | | [...] - [place] | [address] | [place], [place] | | | [facility] POINT OF CARE | [address] | [address] | | | TESTS | | | [...] [facility] | [address] | [place] [address] | | | SERVICES, CORE | PARK [...] | | | LABORATORY | | | FIJIAN | | | SERVICES, | | | [...] | + + + + + | [facility] | [address] | [place] [address] | | | SERVICES, CORE | CLARENCE [...] [facility] | [address] | [place] [address] | | | SERVICES, CORE | PARK [...] [facility] | [address] | [place], [place] | | | [place] POINT OF CARE | [address] | [address] | | | TESTS | | | [...] [facility] | [address] | [place], [place] | | | JUST[facility] DAWN OF CARE | [address] | [address] | | | TESTS | | | [...] [facility] | [address] | [place], [place] | | | [facility] [facility]INT OF CARE | [address] | [address] | | | TESTS | | | [...] [facility] | [address] | [place], [place] | | | [place] POINT OF CARE | [address] | [address] | | | TESTS | | | [...] [facility] | [address] | [place], [place] | | | [facility] [facility] [place] | [address] | [address] | | | TESTS | | | [...] | + + + + + | [facility] | [address] | [place] [address] | | | SERVICES, LYDIA | CLARENCE [...] | | | LABORATORY | | | FIJIAN | | | SERVICES, | | | [...] MDRD equation recommended by the | [facility] | | National Kidney Disease [...] + + + + | [facility] | [address] | [place] [address] | | | SERVICES, CORE | [address] | | | + + + + + MAGNESIUM, PLASMA (11/11/2012 3:38 AM PDT) + +---------+ + + + | Component | Value | Ref Range | Performed | Pathologist | | | | | At | Signature | + +---------+ + + + | MAGNESIUM,P | 1.5 (L) | 1.8 - 2.5 mg/dL | [facility] | | | LASMA | | | [...] + + + + | [facility] | [address] | [place] [address] | | | SERVICES, CORE | CLARENCE [...] [facility] | [address] | [place], [place] | | | [facility] [place] | [facility] | [address] | | | TESTS | | | [...] [facility] | [address] | [place], [place] | | | JUST[facility] ADWN OF CARE | [address] | [address] | | | TESTS | | | [...] [place] | [address] | [place], [place] | | | [facility] [facility] [place] | [address] | [address] | | | TESTS | | | [...] [facility] | [address] | [place], [place] | | | [facility] [place] | [facility] | [address] | | | TESTS | | | [...] [facility] | [address] | [place], [place] | | | [facility] | [facility] | [address] | | | TESTS | | | [...] [facility] | [address] | [place] [address] | | | SERVICES, CORE | CLARENCE [...] | | | LABORATORY | | | FIJIAN | | | SERVICES, | | | [...] | + + + + + | [facility] | [address] | [place] [address] | | | SERVICES, CORE | CLARENCE [...] [facility] | [address] | [place] [address] | | | LYDIA RANGEL | CLARENCE [...] [facility] | [address] | [place], [place] | | | [facility]WN OF CARE | [facility] | [address] | | | TESTS | | | | + + + + + CAPILLARY BLOOD GLUCOSE (NO CHG), POC (11/09/2012 6:08 PM PDT) + +-------+ + + + | Component | Value | Ref Range | Performed | Pathologist | | | | | At | Signature | + +-------+ + + + | BLOOD | 94 | 60 - 99 mg/dL | KALEY [...] [facility] | [address] | [place], [place] | | | [facility] OF CARE | [facility] | [address] | | | TESTS | | | [...] [facility] | [address] | [place], [place] | | | [facility] | [address] | [address] | | | TESTS | | | [...] | | | Final CULTURE | | [place] | | | | RESULT:>100,000 cfu/ml | [...] + | [facility] | [address] | [place] [address] | | | [place] | | | | + + + + + UA MADAY ONLY (11/09/2012 6:57 AM PDT) + + [...] [facility] | [address] | [place] [address] | | | SERVICES, CORE | PARK [...] + + + + | [facility] | [address] | [place] [address] | | | SERVICES, CORE | PARK [...] [facility] | [address] | [place], [place] | | | [facility] [facility] [place] | [facility] | [address] | | | TESTS | | | [...] | | | LABORATORY | | | FIJIAN | | | SERVICES, | | | [...] MDRD equation recommended by the | [facility] | | National Kidney Disease [...] [facility] | [address] | [place] [address] | | | SERVICES, CORE | PARK [...] + + + + | [facility] | [address] | [place] [address] | | | SERVICES, CORE | [address] | | | + + + + + MAGNESIUM, PLASMA (11/09/2012 4:06 AM PDT) + +---------+ + + + | Component | Value | Ref Range | Performed | Pathologist | | | | | At | Signature | + +---------+ + + + | MAGNESIUM,P | 1.2 (L) | 1.8 - 2.5 mg/dL | [facility] | | | LASMA | | | [...] | + + + + + | [facility] | [address] | [place] [address] | | | SERVICES, CORE | CLARENCE [...] [facility] | [address] | [place], [place] | | | [place] | [address] | [address] | | | TESTS | | | [...] [facility] | [address] | [place], [place] | | | [facility] CARE | [facility] | [address] | | | TESTS | | | | + + + + + CAPILLARY BLOOD GLUCOSE (NO CHG), POC (11/08/2012 12:09 PM PDT) + +-------+ + + + | Component | Value | Ref Range | Performed | Pathologist | | | | | At | Signature | + +-------+ + + + | BLOOD | 97 | 60 - 99 mg/dL | [facility] [...] [facility] | [address] | [place], [place] | | | [place] POINT OF CARE | [address] | [address] | | | TESTS | | | [...] + + + + | [facility] | [address] | [place] [address] | | | SERVICES, CORE | CLARENCE [...] 2.5 mg/dL | [facility] | | | [facility] | | | LABORATORY | | | [...] + + + + | [facility] | [address] | [place] [address] | | | SERVICES, CORE | PARK [...] | | | LABORATORY | | | FIJIAN | | | SERVICES, | | | [...] + + + + | [facility] | [address] | [place] [address] | | | SERVICES, CORE | CLARENCE [...] + + + | [facility] | [address] | [place], [place] | | | [facility] | [address] | [address] | | | TESTS | | | [...] [facility] | [address] | [place], [place] | | | JUST[facility] DAWN OF CARE | [address] | [address] | | | TESTS | | | [...] - [facility] | [address] | [place], [place] | | | [facility] | [facility] | [address] | | | TESTS | | | [...] + + + + | [facility] | [address] | [place] [address] | | | SERVICES, CORE | [address] | | | + + + + + MAGNESIUM, PLASMA (11/07/2012 12:30 AM PDT) + +---------+ + + + | Component | Value | Ref Range | Performed | Pathologist | | | | | At | Signature | + +---------+ + + + | MAGNESIUM,P | 1.7 (L) | 1.8 - 2.5 mg/dL | [facility] | | | LASMA | | | [...] | + + + + + | [facility] | [address] | [place] [address] | | | SERVICES, CORE | CLARENCE [...] | | | LABORATORY | | | FIJIAN | | | SERVICES, | | | [...] the MDRD equation recommended by the | [facility] | | National Kidney Disease Education Program. [...] + + + + | [facility] | [address] | [place] [address] | | | LYDIA RANGEL | [address] | | | + + + + + X-RAY PORTABLE CHEST 1 VIEW (11/06/2012 4:46 PM PDT) + + + + + + | Component | Value | Ref Range | Performed | Pathologist | | | | | At | Signature | + + + + + + | X-RAY | STUDY: [place] CHEST 1 VIEW | | | | | PORTABLE | 11/06/12 16:46:00 | | | | | CHEST 1 | INDICATION: Right upper | | | | | VIEW | lobe opacity. | | | | | | COMPARISON: Earlier same | | | | | | day a STUDY: [place] CHEST 1 | | | | | [...] + + + | X-RAY | STUDY: [place] CHEST 1 VIEW | | | | [...] + | [facility] | [address] | [place] [address] | | | SERVICES, CORE | PARK [...] | | | LABORATORY | | | FIJIAN | | | SERVICES, | | | [...] | + + + + + | [facility] | [address] | [place] [address] | | | SERVICES, CORE | CLARENCE [...] [facility] | [address] | [place] [address] | | | SERVICES, CORE | PARK [...] - [facility] | [address] | [place], [place] | | | [facility] [facility] [place] | [address] | [address] | | | TESTS | | | [...] [facility] | | | | | | JUTSINE DAWN | | | | | | [...] - [facility] | [address] | [place], [place] | | | JUST[facility] DAWN OF CARE | [address] | [address] | | | TESTS | | | [...] [facility] | [address] | [place] | | | [facility]WN OF CARE | [address] | [address] | | | TESTS | | | | + + + + + SODIUM (BERNARD)VALERIE (11/06/2012 11:08 AM PDT) + +-------+ [...] [facility] | [address] | [place], [place] | | | [facility] CARE | [address] | [address] | | | TESTS | | | [...] [facility] | [address] | [place], [place] | | | [facility] [place] | [facility] | [address] | | | TESTS | | | [...] mg/dL | [facility] - | | | POC | | [...] [facility] | [address] | [place], [place] | | | [place] POINT OF CARE | [address] | [address] | | | TESTS | | | [...] [facility] | [address] | [place], [place] | | | [facility] [place] | [address] | [address] | | | TESTS | | | [...] [facility] | [address] | [place], [place] | | | [facility] CARE | [facility] | [address] | | | TESTS | | | [...] [facility] | | | | | | [place] POINT | | | | | | [...] [facility] | [address] | [place], [place] | | | [facility] CARE | [facility] | [address] | | | TESTS | | | [...] mmol/L | [facility] - | | | DADA, | | | [facility] | | | POC | | | [...] [facility] | [address] | [place], [place] | | | [facility] [facility] [place] | [address] | [address] | | | TESTS | | | [...] - [place] | [address] | [place], [place] | | | [place] [facility] | [facility] | [address] | | | TESTS | | | [...] + + + + | [facility] | [address] | [place] [address] | | | SERVICES, | [address] [...] [facility] | [address] | [place] | | | [facility] | [facility] | [address] | | | TESTS | | | [...] [facility] | [address] | [place] [address] | | | SERVICES, | [address] [...] [facility] | [address] | [place] [address] | | | SERVICES, | [address] [...] [facility] | [address] | [place] [address] | | | SERVICES, CORE | PARK [...] | + + + + + | [facility] | [address] | [place] [address] | | | SERVICES, CORE | CLARENCE [...] | 1.8 - 2.5 mg/dL | [facility] | | | LASMA | | | [...] + + + + | [facility] | [address] | [place] [address] | | | SERVICES, CORE | PARK [...] + + + + | [facility] | [address] | [place] [address] | | | SERVICES, CORE | PARK [...] | | | LABORATORY | | | FIJIAN | | | SERVICES, | | | [...] + + + + | [facility] | [address] | [place] [address] | | | SERVICES, CORE | PARK [...] view image for the detailed interpretation from [employer] Interactive results. | CARDIOLOGY | + + + + + + + + | Performing | Address | City/State/Zipcode | Phone Number | | Organization | | | | + + + + + | [facility] | [address] | [place], [place] | | | CARDIOLOGY | [address] | [address] | | + + + + + [...] [facility] | [address] | [place] [address] | | | SERVICES, LYDIA | PARK [...] [facility] | [address] | [place] [address] | | | SERVICES, LYDIA | CLARENCE [...] | 1 tablet | | | | gozimzszes-kbywhhqaeywar-hsenhiwi | | 13 8:02 | | | [...] 13 7:36 | | | | | AUTOMOTIVE SOFTWARE ENGINEER infusion intravenous, | | PM PDT | [...] PDT | | | | | Until [facility] 11/11/12 at 0702 | | [...] | 1 | | | | (jack ZAMORALLBarb) capsule 1 Cap 1 | | 13 [...] | 2 | | | | (aka LISAA-PHOS, PHOJacy-TERRY) | | 13 12:13 | packets | [...] + +-------+ + +---+---+ | senna-docusate (aka LORAOT S) | Given | 11/13/19 | 1 [...]
--- OUTSIDE RECORDS SUMMARY | ~2020-03-23 | XMS | Encounter Summary ---
Demographics + + + | Address | [address] | | | [place] [address] | + + + | Home Phone [...] [place], [place] | | | | | [address] | | + + + + + | Ellie Vang | ECON | Unknown | | + + + + + Care Team Providers + +------+ + | Care Print Color Matcher Name | Role | Phone | + +------+ + | Fadi Goodrich DO | PCP | | + +------+ + Encounter Details +--------+ + + + + | Date | Type | Department | Care Team | Description | +--------+ + + + + | 07/06/ | Abstract | [facility] | Shereen Georges, | | | 2012 | | Center at [facility] [address] | [facility] [address] | | | | [address] | [place], [place] | | | | | for Health and | [address] | | | | | [facility] | | | | | | [place], [place] | | | | | | [address] | | | | | | | [...] | | 2019 | sherrill | | [employer] [address] | | | | | | [place], [place] | | | | | | [address] | | | | | | [phone] | | | | | | | | +--------+ + + + + documented as of this encounter Visit Diagnoses Not on filedocumented in this encounter"
--- OUTSIDE RECORDS SUMMARY | ~2020-03-23 | XMS | Encounter Summary ---
Demographics + + + | Address | [address] | | | [place] [address] | + + + | Home Phone [...] + | Katalina Padilla | ECON | [address] | | | | | [place], [place] | | | | | [address] | | + + + + + | Ellie Vang | ECON | Unknown | | + + + + + Care Team Providers + +------+ + | Care Engineering Design Manager Name | Role | Phone [...] | | | | | | [place], [place] | | | | | | [address] | | | | | | [phone] | | | +--------+ + + + [...] | | 2020 | cheduled | | CELERY PACKER [address] | | | | | | [place], [place] | | | | | | [address] | | | | | | [phone] | | | | | | | | +--------+ + + + + documented as of this encounter Visit Diagnoses Not on filedocumented in this encounter"
--- OUTSIDE RECORDS SUMMARY | ~2020-03-23 | XMS | Encounter Summary ---
Demographics + + + | Address | [address] | | | [place] [address] | + + + | Home Phone [...] [place], [place] | | | | | [address] | | + + + + + | Ellie Vang | ECON | Unknown | | + + + + + Care Team Providers + +------+ + | Care It Network Administrator Name | Role | Phone | [...] + + | 02/07/ | Hospital | [address] | [place], | | | 2014 - | Encounter | [address] | [address] | | | | | [place], [place] | [address] | | | 02/08/ | | [address] | [place], [place] | | | 2013 | | [phone] | [address] | | | | | | [phone] | | | | | | | [...] the resident s note. PRADIP STARR MD [facility] [address] [place] [phone] orrMaryam hill MD - 1:05 PM PDT [facility] DEPARTMENT OF SURGERY EMERGENCY GENERAL SURGERY [...] Type 2 DM who presented to the [facility] ED ([place], [place]) on 02/06/14, with a week hi story of RUQ abdominal pain that radiates to her back. There, she was found to have leukocyt osis and multiple tiny, mobile stones, + sonographic Peterson's sign on abdominal ultrasound, concerning for acute cholecystitis. She was givenIV antibiotics (cipro, flagyl) and pain med s, then transferred to [facility] by [facility] for further [...] GOODRICH DO. Contact information [address] [place] [address] Follow up with Trauma Emergency General Surgery at [facility] In 4 weeks. (follow up in 2-4 weeks ) Contact information [address] [facility] Mailcode: [id number] [facility] [place] [place] [address] Thank you for the [...] the resident s note. PRADIP STARR MD [facility] [address] [place] [place] [address] orrest, Maryam Yu MD - 5:17 AM PDT [facility] DEPARTMENT OF SURGERY EMERGENCY GENERAL SURGERY Division [...] tolerated MARYAM RHODES MD PGY-1, General Surgery [phone] pager number [facility] [place] [address] [facility] [phone] documented in this encoun ter H&P Notes Milana Landaverde MD - 02/07/2014 3:31 AM PDTI saw and evaluated the patient. I agree with the findings and the plan of care as documented in the resident s note. MILANA LANDAVERDE MD [address] [address] Stephanie Esposito MD,MPH - 02/07/2014 3:31 AM PDTFormatting of this note might be different from the origi nal. HISTORY AND PHYSICAL CC: abdominal pain HPI: Dylan Romero is a 38 y.o. Female with morbid obesity, bipolar disorder and Type 2 DM who presented to the [facility] ED ([place], [place]) on 02/06/14, with a week hi story of RUQ abdominal pain that radiates to her back. There, she was found to have leukocyt osis and multiple tiny, mobile stones, + sonographic Peterson's sign on abdominal ultrasound, concerning for acute cholecystitis. She was given iv antibiotics (cipro, flagyl) and pain m eds, then transferred to [facility] by [facility] for further care. Ms. Romero endorses 7 sharp, constant RUQ abdominal pain accompanied by nausea and emesis (x2 yesterday), as well as episodes of foul-smelling diarrhea. She became concerned and dec ided to go to the ED when the abdominal pain started radiating to her back. The pain was no t relieved by NSAIDS and worsened with movement. She endorses subjective chills and respirat ory splinting from the current abdominal pain. She denies prior episodes of similar abdomina l pain, hematochezia, cough, or dyspnea on exertion. 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 Andie Brian HOME MEDICATIONS: Prior to Admission Medications Outpatient Medications ALPRAZolam XR 3 mg Oral tablet extended release 24 hr Sig: Take 3 mg by mouth once daily in the morning. ASPIRIN/ACETAMINOPHEN/JARON CARB (EXCEDRIN BACK & BODY ORAL) Sig: Take 325 mg by mouth four times daily as needed. FLUoxetine 40 mg Oral capsule Sig: Take 40 mg by mouth once daily. HUM INSULIN NPH/REG INSULIN HM (HUMULIN 70/30 SUBQ) Sig: Inject 50 cc under the skin (SUBC) once daily. OLANZAPINE (ZYPREXA ORAL) Sig: Take 30 mg by mouth once daily. TORSEMIDE ORAL Sig: Take 40 mg by mouth two times daily. ascorbic acid (VITAMIN C) 500 mg Oral tablet Sig: Take 500 mg by mouth once daily. ergocalciferol (VITAMIN D2) 50,000 unit oral capsule Sig: Take 50,000 Units by mouth twice weekly (on Thursday and ). ferrous sulfate 325 mg (65 mg iron) Oral tablet Sig: Take 325 mg by mouth two times daily. metFORMIN 1,000 mg Oral tablet Sig: Take 1,000 mg by mouth once daily. phentermine 37.5 mg oral tablet Sig: Take 1 tablet by mouth once daily in the morning. Administer before breakfast. piroxicam 20 mg Oral capsule Sig: Take 20 mg by mouth once daily. ranitidine 300 mg Oral tablet Sig: Take 300 mg by mouth once daily at bedtime. senna-docusate 8.6-50 mg Oral tablet Sig: Take 1 Tab by mouth two times daily. thyroid (ARMOUR THYROID) 30 mg oral tablet tab Sig: Take 30 mg by mouth once daily. topiramate (TOPAMAX) 25 mg oral tablet Sig: Take 100 mg by mouth. Take 1 tab twice daily traZODone 150 mg Oral tablet Sig: Take 150 mg by mouth once daily at bedtime. Nystatin powder BID ALLERGIES: Allergies Allergen Reactions Amoxicillin Rash Benadrilina (Diphenhydramine Hcl) Hives Parlodel (Bromocriptine) Unknown Blood clots SOCIAL HISTORY: History Substance Use Topics Smoking status: Never Smokeless tobacco: Never Used Alcohol Use: No FAMILY HISTORY: Family History Problem Relation Alcohol/Drug Alcoholism in mother & father Hypertension M&F Asthma Father, brother, daughters Lung Disease Father Obesity M&F&Sister Diabetes Mother Arthritis M&F Heart Attack Father Diabetes Mother REVIEW OF SYSTEMS: Constitutional - per HPI Eyes/Ears/Nose/Mouth/Throat - Negative for changes in vision Cardiovascular - Negative for chest pain,dysrhythmia Respiratory - per HPI Gastrointestinal - per HPI Genitourinary - Negative for dysuria Hematologic/Lymphatic - Negative Skin - Erythematous rash in bilateral groin and lower abdomen Endocrine - DM2, morbid obesity, preparing for bariatric surgery PHYSICAL EXAM: Vital signs: Ht 1.549 m (5' 1"), Wt 181.847 kg (400 lb 14.4 oz), BP 118/63, Pulse 101, Temp erature 36.6 C (97.9 F), RR 18, SpO2 95%, BMI 75.79 kg/(m^2). General: appears to be in pain, conversant, alert Chest: CTA bilaterally, unlabored with normal inspiratory effort CV: RRR, no m/r/g Gastrointestinal: obese, soft, very tender to palpation in RUQ, + Peterson's sign Extremities: WWP ASSESSMENT AND PLAN: Dylan Romero is a 38 y.o. female with morbid obesity, type 2 DM pr esenting from OSH with new-onset RUQ abdominal pain, leukocytosis and imaging most concernin g for acute cholecystitis. 1. Admit to EGS 2. NPO, IVF 3. IV antibiotics 4. Labs 5. Restart home meds Milana Landaverde MD is the attending of record for this patient encounter. STEPHANIE RIZO MD,MPH Attending provider: Milana Landaverde MDElectronically signed by Milana Landaverde MD at 2013 1:34 PM PDTdocumented in this encounter Procedure Notes Other, Faculty - 02/09/2014 11:16 PM PDTAssociated Order(s): PROCEDURE NOTEElectronically s igned by Faculty Other at 02/09/2014 11:16 PM Pradip Burnham MD - 02/07/2014 7:28 PM PDTI saw and evaluated the patient. I agree with the findings and the plan of care as documented in the resident s note. PRADIP STARR MD [facility] [address] [facility] [address] [facility] [place] [address] I was present for the entire procedure as described in the note for this encounter. PRADIP STARR MD [facility] [address] [facility] [address] [facility] [place] [address] Jacquelin Melendez MD - 02/07/2014 7:28 PM PDTAssociated Order(s): PROCEDURE NOTEOPERATIVE REPORT Procedure Date: 02/07/2014 Author: JACQUELIN MAI MD Attending Physician: Tam Starr MD Assistants: MD Jacquelin Romero MD Preoperative Diagnosis: acute cholecystitis Postoperative Diagnosis: same Procedure Performed: laparoscopic cholecystectomy with intra-operative cholangiogram Estimated Blood Loss: 50mL UOP: 600mL Fluids: 2700mL Specimens: gallbladder Complications: none apparent at end of case Drains: right radial arterial line Disposition: PACU then acute care Findings: edematous, dilated gallbladder consistent with acute cholecystitis, ICO with norm al filling of CBD, duodenum, right and left hepatic ducts, enlarged fatty liver Indication: Ms. Romero is a 38 yo woman with morbid obesity, bipolar disorder, and DMII who presented with one week of RUQ pain and US consistent with acute cholecystitis. An extensiv e PARQ was held with the patient. She understood the risks and wanted to proceed. A consent was obtained for the above procedures. Procedure in detail: Prior to the beginning of the procedure, the team paused to verify the patient s identity , the procedure to be performed (in accordance with the consent,) and the correct side/site. The patient was positioned appropriately. All relevant images and results were properly lab eled and displayed. We addressed antibiotic prophylaxis and fluids for irrigation as applica ble to this patient. Any safety precautions were addressed. The patient was prepped and gale ped in the standard sterile fashion. The skin was infiltrated with 0.5% marcaine and a supr aumbilical vertical incision was made. The subcutaneous tissue was dissected bluntly down to the level of fascia. The fascia was grasped was incised sharply. 2-[address] pl aced in the fascia. The peritoneum was entered with a hemostat and noted to be free of local adhesions. The 12mm trocar was placed and a 30 degree scope was introduced. The underlying bowel and omentum was noted to be free of injuries from entry. The skin just inferior to th e xiphoid process at the liver edge was infiltrated with local and an incision was made. Us ing the step veress technique, an 11mm trocar was introduced. After infiltration with local , 2 more 5mm ports were placed at the liver edge in the right upper quadrant. Adherent omen irene was bluntly dissected off of the gallbladder, resulting in a small tear of the liver cap good at the liver edge. The gallbladder was grasped and dissection of adherent omentum was continued bluntly with a wilmar grasper and with judicious use of electrocautery. The enlar ged gallbladder was redundant and difficult to control, and the decision was made to put in another 5mm port at the liver edge to aid with retraction. The omentum was fully dissected off of the gallbladder and the cystic duct and cystic artery were isolated bluntly using a k itner and spreading of blunt graspers. The critical view of safety was obtained. The artery was noted to be bleeding briskly so two clips were placed at the proximal portion of the cy stic artery, a single clip was placed at the gallbladder side, and the artery was divided wi th scissors. A single clip was placed at the gallbladder side of the cystic duct. The chol angiocatheter stylet was introduced through a stab incision in the right upper abdominen, an d correct alignment with the cystic duct was attained with the use of retraction with a blun t grasper. A ductotomy was made with scissors in the cystic duct and the cholangiocather wa s introduced with flushing of normal saline. The contrast was flushed into the catheter and the cholangiogram revealed the above findings. The catheter was removed under direct visua lization, two clips were placed on the proximal cystic duct, and the duct was transected. T he gallbladder was dissected free from the liver bed using electrocautery. It was noted to contain multiple firm yellow gallstones. The gallbladder was removed from the abdomen using the endocatch bag without gross contamination or spillage of stones. The gallbladder fossa was irrigated, re-examined, and noted to be hemostatic. The trocars were removed under dir ect visualization. The supraumbilical and subxiphoid fascial incisions were closed with inte rrupted 2-0 vicryl sutures. The skin of all trocar sites was closed with 4-0 biosyn suture. All counts were correct at the end of the case. The patient tolerated the procedure witho ut complications and was extubated and taken to PACU in stable condition. Dr. Starr was prese nt and scrubbed for the entire procedure. Pradip Burnham MD - 014 6:44 PM PDTI saw and evaluated the patient. I agree with the findings and the plan of care as documented in the resident s note. PRADIP STARR MD [facility] [address] [facility] [place] [address] Francisco Snowden MD - 6:44 PM PDTAssociated Order(s): PROCEDURE NOTEBRIEF OPERATIVE NOTE Procedure Date: 02/07/2014 Author: FRANCISCO MCKEON MD Attending Physician: TAM STARR MD Assistants: Francisco Mckeon, R5; Jacquelin Hines, R3 Preoperative Diagnosis: Acute cholecystitis Postoperative Diagnosis: same Procedure Performed: Laparoscopic cholecystectomy with intra-op cholangiogram Findings: consistent with acute cholecystitis, ICO appeared normal, fatty liver Complications: none apparen Fluids: EBL: 50cc, UOP: 600cc and crystalloid: 2.7L Specimens: Pathology: Gallbladder Drains: arterial line Disposition: PACU then acute care Ruiz: Remove POD #1 Diet: ADAT to regular DVT prophylaxis: okay to begin POD 1 at 2100 Antibiotic Plan: None Glycemic control: SQ sliding scale Dressing care: No wound care required Activity restrictions: HOB > 30 degrees and OOB POD # 0 Initial surgical contact: EGS at pager [phone] documented in this encoun ter Miscellaneous Notes Scan - Other, Faculty - 02/09/2014 11:16 PM PDTElectronically signed by Faculty Other at 11:16 PM PDTScan - Other, Faculty - 02/09/2014 11:16 PM PDT valuation - Bridger Morales RN - 02/08/2014 4:2 1 PM PDT.Discharged to home with Family assistance. Pt states pain under control on DC. Al l DC instructions reviewed and understood per pt. andoff - Bridger Morales RN - 02/08/2014 1:01 PM PDTRN EGS H andoff Report Primary focus of stay: Abdominal pain- N/V/D at home x1 week Events of this stay (w/date): Transfer from [place] PmHx: DMII;Migraines; open appy; umbilical hernia repair x1; ventral hernia repair x1; Left ankle repair w/ internal pin; Bipolar Pertinent physical findings: Vitals: VSS Respiratory status: RA, CTA Cardiovascular: stable WNL, pt was tachy previous to surgery Diet/GI: clears CBGs: Q6H Last BM/+flatus: 02/06 -- Diarrhea per pt (last void): ruiz Isolation Precautions: None Access/fluids: PIV x4; D5-NS @ 100 Mobility (fall risk, last turn): up independent Wounds/Drains/Skin: Pannus excoriation/ulcerations --Nystatin used at home, ordered here Pain Management: Dilaudid IV 0.2 -2mg available Q2H Psych/social issues: Bipolar; anxiety (meds scheduled) Critical labs: Critical meds: Orders to follow up on: SSI ?; Plan of Day/Night (sleep): Pain control; assessments Plan of Stay: Determine source of abdominal pain Discharge plan: TBD can - Other, Facult y - 02/08/2014 9:38 AM PDT Evaluation - Viviane Saunders RN - 02/08/2014 3:39 AM PDTProblem: Pain, Acute (Adult, Obs tetrics) Goal: Identify Signs and Symptoms and Related Risk Factors Goals: Pt will verbalize tolerable pain this shift. Pt will mobilize safely with ruiz and IV line. Interventions: Assess pain Q3-4, medicate pt for pain as ordered, use nonpharmacolocial methods for pain. Assist pt with 1 person assist to ambulate, keep lines organized and out of pt way. Interventions that worked/didn't work: continue interventions above My recommendations forward:continue interventions above Patient Stability:Moderately Stable lan of Care - Viviane Greenwood RN - 02/08/2014 3:38 AM PDTProblem: Pain, Acute (Adult, Obstetrics) Goal: Identify Signs and Symptoms and Related Risk Factors Goals: Pt will verbalize tolerable pain this shift. Pt will mobilize safely with ruiz and IV line. Interventions: Assess pain Q3-4, medicate pt for pain as ordered, use nonpharmacolocial methods for pain. Assist pt with 1 person assist to ambulate, keep lines organized and out of pt way. andoff - Viviane Montalvo RN - 02/08/2014 1:06 AM PDTRN EGS Handoff Report Primary focus of stay: Abdominal pain- N/V/D at home x1 week Events of this stay (w/date): Transfer from [place] PmHx: DMII;Migraines; open appy; umbilical hernia repair x1; ventral hernia repair x1; Left ankle repair w/ internal pin; Bipolar Pertinent physical findings: Vitals: VSS Respiratory status: RA, CTA Cardiovascular: stable WNL, pt was tachy previous to surgery Diet/GI: clears CBGs: Q6H Last BM/+flatus: 02/06 -- Diarrhea per pt (last void): ruiz Isolation Precautions: None Access/fluids: PIV x4; D5-NS @ 100 Mobility (fall risk, last turn): up independent Wounds/Drains/Skin: Pannus excoriation/ulcerations --Nystatin used at home, ordered here Pain Management: Dilaudid IV 0.2 -2mg available Q2H Psych/social issues: Bipolar; anxiety (meds scheduled) Critical labs: Critical meds: Orders to follow up on: SSI ?; Plan of Day/Night (sleep): Pain control; assessments Plan of Stay: Determine source of abdominal pain Discharge plan: TBD Arianne - Lissette Sewell RN - 02/07/2014 8:26 PM PDTMegagandeep Phase I Discharge Criteria (Stable For Transfe r): Major deviations/events or pertinent findings of katey-operative stay: respiratory status an d pain control Anticipated post-op needs/devices/follow up: pain control , continuous pulse Oxymetry Post-Op Diagnosis Codes: * Acute cholecystitis [575.0] Surgical Procedure Planned - Actual Procedure Performed: Procedure(s) with comments: LAPAROSCOPIC CHOLECYSTECOMY - LAPAROSCOPIC CHOLECYSTECOMY WITH INTRA-OP CHOLANGIOGRAM Anesthesia: General Length of procedure: In Room/Out of Room: 3 Hr 23 Min 57 Sec Surgeon(s) and Role: * Pradip Starr MD - Primary OR positioning comments: supine Neuro: POSS Sedation Level: Sleep, Easy to Arouse Last pain medication given: Pain medication totals: see MAR Additional pain medication information: none Functional Epidural: No LOFT WORKER APPRENTICE: No Respiratory: RR: 19, O2 Sat: 96 %, O2 Delivery: Nasal cannula Breath Sounds: WDL Except (AMARA) ALFRED: clear LLL: clear;diminished RUL: clear RLL: clear;diminished AMARA Yes Comment: Pt didn't bring CPAP Cardiac: BP: 139/69 mmHg HR: 92 GI: Nausea/Vomiting Status: No, received meds, no longer nauseated Signs/Symptoms: Interventions: Assessment: Comments: Pt appearing comfortable : Last void: FC Contact Name: Ellie Vang Contact Number: [phone] Family contacted: Yes Comment: Belongings:in Pt's room can - Other, [facility] ulty - 02/07/2014 9:24 AM PDT can - Other, Faculty - 02/07/2014 9:04 AM PDT can - Other, Faculty - 02/07/2014 9:04 AM PDT lan of Care - Kelly Strauss RN - 02/07/2014 8:12 AM PDTProblem: Case Management Goals Goal: Discharge Needs Met Outcome: Gradual progress toward goal Initial Case Management Note Reason for admission: Dylan Romero is a 38 y.o. Female with morbid obesity, bipolar disorder and Type 2 DM who presented to the [facility] ED ([place], [place]) on 01/24 11/07, with a week history of RUQ abdominal pain that radiates to her back. There, she was fo und to have leukocytosis and multiple tiny, mobile stones, concerning for acute cholecystit is. She was given iv antibiotics (cipro, flagyl) and pain meds, then transferred to [facility] by [facility] for further care. Pre-admission living situation: Lives in [facility] Pre-admission functional status: Hx of obesity Family/support system: Mother, Katalina Insurance/funding in place: [employer]AFF MIDWIFE Anticipated case management discharge needs: Will follow for any needs from CM depar tment See MD notes, AVS and any ancillary consultation notes for further discharge or f/u needs. Mary Alice Strauss RN, CM pager [phone] [facility] Center - Jaswinder Levineiel - 02/07/2014 3:04 AM PDTLF req extra help on the pad. Pt is obese. ED Charg e and Patient Transportation advised. 14 3:04 AM [facility] Ángel Alexia - 02/07/2014 3:03 AM PDTPt is large, LF12 req uesting extra help to the helipad. 3: 03 AM [facility] 02/07/2014 3:00 AM PDTLF12 enr, ETA 8 mins, bp 11 6/96, sats 96% on 4L, end tidal 38, mildly tachy 100-1teens, has had ativan and dilaudidElec tronically signed by Alexia Neal at 02/07/2014 3:02 AM PDTHandoff - Elke Davis RN - 02/07/2014 2:29 AM PDTRN EGS Handoff Report Primary focus of stay: Abdominal pain- N/V/D at home x1 week Events of this stay (w/date): Transfer from [place] PmHx: DMII;Migraines; Lap appy; abdominal hernia repair x2; Left ankle repair w/ internal pin; Bipolar Pertinent physical findings: Vitals: VSS Respiratory status: RA, CTA Cardiovascular: Tachy to 120s, Diet/GI: NPO x ice chips CBGs: Q6H Last BM/+flatus: 02/06 -- Diarrhea per pt (last void): 02/06 Isolation Precautions: None Access/fluids: PIV x2; D5-NS @ 100 Mobility (fall risk, last turn): up independent Wounds/Drains/Skin: Pannus excoriation/ulcerations --Nystatin used at home, ordered here Pain Management: Dilaudid IV 0.2 -2mg available Q2H; LD 0.5mg @0410 Psych/social issues: Bipolar; anxiety Critical labs: Critical meds: Orders to follow up on: SSI ?; Plan of Day/Night (sleep): Pain control; assessments Plan of Stay: Determine source of abdominal pain Discharge plan: TBD [facility] Jayant Bello - 02/06/2014 9:24 PM PDTGRP [address] [facility] - 02/06/2014 9:14 PM [id number]; Poss. Cholecystitis; Abd pain; Vom & Diarrhea. Morbid obesity 400+lbs. Upper Quad Tenderness. White count [id number]. EGS Dr[address] Akhil he Accepts pt REQ 10A. Electronically signed by Jayant mart 02/06/2014 9:16 PM [facility]TDuane [facility] Hospital[facility] moraes - 02/06/2014 8:[address] Renee KHAN. documente d in this encounter Plan of Treatment +--------+ + + + + | Date | Type | Specialty | Care Team | Description | +--------+ + + + + | 04/04/ | Telephone-S | Surgery | Orquidea Cristobal, | | | 2019 | cheduled | | CHEF MANAGER [address] | | | | | | [facility] [place] | | | | | | [address] | | | | | | [phone] | | | | | | | [...] [facility] | [address] | [place], [place] | | | [place] POINT OF CARE | [address] | [address] | | | TESTS | | | [...] | [facility] | [address] | [place], [place] | | | [place] POINT OF CARE | [address] | [address] | | | TESTS | | | [...] + + + | [facility] | [address] | [place], [place] | | | [place]INT OF CARE | [address] | [address] | | | TESTS | | | [...] [facility] | [address] | [place], [place] | | | [place] POINT OF CARE | [address] | [address] | | | TESTS | | | [...] [facility] | [address] | [place] [address] | | | SERVICES, | [address] [...] [facility] | [address] | [place] [address] | | | SERVICES, | [address] [...] - [facility] | [address] | [place], [place] | | | [facility] | [facility] | [address] | | | TESTS | | | [...] [facility] | [address] | [place] [address] | | | SERVICES, CORE | [address] | | | + + + + + LIPASE, PLASMA (02/07/2014 6:32 AM PDT) + +--------+ + + + | Component | Value | Ref Range | Performed | Pathologist | | | | | At | Signature | + +--------+ + + + | LIPASE | 80 (L) | 152 - 353 U/L | [facility] | | | (LAB) | | | [...] | + + + + + | [facility] | [address] | [place], [place] [address] | | | SERVICES, CORE | CLARENCE [...] | + + + + + | [facility] | [address] | [place] [address] | | | SERVICES, CORE | CLARENCE [...] [facility] | [address] | [place] [address] | | | LYDIA RANGEL | CLARENCE [...] | | | LABORATORY | | | GUYANESE | | | SERVICES, | | | [...] | + + + + + | [facility] | [address] | [place] [address] | | | SERVICES, LYDIA | CLARENCE [...] [facility] | [address] | [place], [place] | | | [facility] | [address] | [address] | | | TESTS | | | [...] pattern. | | | | | | Manager Specialty | | | | | | sections [...] | + + + + + | [facility] | [address] | [place] [address] | | | PATHOLOGY | [address] [...] injection 1 dose, | | | Starting Tu02/07/14 at 1911, | | | Until Thu02/07/14 [...] | | | PRN, 1 dose, Starting e 02/07/14 | | | | | | | at 1905, Until Thu02/07/14 at | | | | | [...]
--- OUTSIDE RECORDS SUMMARY | ~2020-03-23 | XMS | Encounter Summary ---
Demographics + + + | Address | [address] | | | [place] [address] | + + + | Home Phone [...] [place], [place] | | | | | [address] | | + + + + + | Ellie Vang | ECON | Unknown | | + + + + + Care Team Providers + +------+ + | Care Emergency Medical Tech Name | Role | Phone | [...] | | 2019 | sherrill | | MAINTENANCE MANAGER [address] | | | | | | [place] | | | | | | [address] | | | | | | [phone] | | | | | | | | +--------+ + + + + documented as of this encounter Visit Diagnoses Not on filedocumented in this encounter"
--- OUTSIDE RECORDS SUMMARY | ~2020-03-23 | XMS | Encounter Summary ---
Demographics + + + | Address | [address] | | | [place] [address] | + + + | Home Phone [...] [place], [place] | | | | | [address] | | + + + + + | Ellie Vang | ECON | Unknown | | + + + + + Care Team Providers + +------+ + | Care Formula Weigher Name | Role | Phone | [...] Mailcode:[id number] | | | | | | [facility] | | | | | | [place], [place] | | | | | | [address] | | | | | | [phone] | | | +--------+ + + + [...] | | 2019 | sherrill | | DYER AND WASHER [address] | | | | | | [place], [place] | | | | | | [address] | | | | | | [phone] | | | | | | | [...] in | | | | | | [place]. | | | | | | | | | | | | Julia Blackman at [facility]. | | | | | | | [...] | | | | artery. A 4.1 Czech | | | | | | catheter was navigated | | | | | | over0.035" Donal coated | | | | | | RegaloCardson guide wire into | | | | [...] | | + +---------+ + + | [facility] | | | | | RADIOLOGY | | | | + +---------+ + + documented in this encounter Visit Diagnoses Not on filedocumented in this encounter
--- OUTSIDE RECORDS SUMMARY | ~2020-03-23 | XMS | Encounter Summary ---
Demographics + + + | Address | [address] | | | [place] [address] | + + + | Home Phone [...] [place], [place] | | | | | [address] | | + + + + + | Ellie Vang | ECON | Unknown | | + + + + + Care Team Providers + +------+ + | Care Power Supply Engineer Name | Role | Phone | + +------+ + | Fadi Goodrich DO | PCP | | + +------+ + Reason for Visit +--------+--------+ + | Reason | Onset | Comments | | | Date | | +--------+--------+ + | Other | 04/17/ | | | | 2014 | | +--------+--------+ + Encounter Details +--------+ + + + + | Date | Type | Department | Care Team | Description | +--------+ + + + + | 04/17/ | Telephone | Digestive Health | Kathy Feldman, | Other | | 2013 | | Center at [facility] [address] | TRACTOR DRIVER [address] | | | | | [address] [facility] | [facility] [address] | | | | | [facility] and | [place], [place] | | | | | [facility] 2 | [address] | | | | | [place], [place] | [phone] | | | | | [address] | | | | | | [phone] | | | +--------+ + + + [...] this encounter Miscellaneous Notes Telephone Encounter - Benito Mohr - 09/15/2014 9:30 AM PSTThis encounter has been admin istratively closed with the authorization of the [facility] Committee. elephone Encounter - Sheree Arnett MA - 04/17/2014 5:15 PM PDTWill ask our insole tack puller hand to set up appt with our dieti ela. Previously seen Olga Lidia. elephone Encounter - Samanta Hoff - 04/17/2014 4:24 PM PDTPatient calling to seek adv ice on how to lose an extra 25 pounds. She stated she is 392 pounds and is having a hard mitesh e losing anymore weight. She was advised to go on a liquid diet by her pull up hand. Please call back to follow up. Tdocumented in this encounter Plan of Treatment +--------+ + + + + | Date | Type | Specialty | Care Team | Description | +--------+ + + + + | 04/04/ | Telephone-S | Surgery | Orquidea Cristobal, | | | 2020 | cheduled | | OVEN DRIER TENDER [address] | | | | | | [place], [place] | | | | | | [address] | | | | | | [phone] | | | | | | | | +--------+ + + + + documented as of this encounter Visit Diagnoses Not on filedocumented in this encounter"
--- OUTSIDE RECORDS SUMMARY | ~2020-03-23 | XMS | Encounter Summary ---
Demographics + + + | Address | [address] | | | [place] [address] | + + + | Home Phone [...] [place], [place] | | | | | [address] | | + + + + + | Ellie Vang | ECON | Unknown | | + + + + + Care Team Providers + +------+ + | Care Digital Media Specialist Name | Role | Phone | + +------+ + | Kenyatta Cardenas MD | PCP | | + +------+ + Encounter Details +--------+ + + + + | Date | Type | Department | Care Team | Description | +--------+ + + + + | 06/06/ | Telephone | Digestive Health | Chilo | | | 2019 | | [place] [address] [address] | MD Jorje [address] | | | | | [address] [facility] | [address] | | | | | for Health and | [place], [place] | | | | | [facility] 2 | [address] | | | | | [place], [place] | [phone] | | | | | [address] | | | | | | [phone] | | | +--------+ + + + [...] Telephone Encounter - Paulino Hooker RN - 06/06/2019 11:13 AM PST"During her PMC RN phone a ppointment, patient Jonnie reported she was diagnosed with a blood clot in right arm and started on Lovenox inj 120mg/0.8 ml q 12 hr. Yesterday, she was diagnosed with 2 pulmonary emboli and started warfarin 10 mg daily. Her prescribing provider knows she is scheduled for surgery. She rates her abdominal pain " 10" out of 10 on pain scale. I wanted to make sure you are aware of her current situation. Please advise, October [facility] phone RN" Discussed with Dr. Woo, pt will need to have procedure postponed for at least a nate h, rescheduled for August 19, 2019, will need to follow up with PCP, new phone PM[facility] in [place]. documented in this enco unter Plan of Treatment +--------+ + + + + | Date | Type | Specialty | Care Team | Description | +--------+ + + + + | 04/04/ | Telephone-S | Surgery | Orquidea Cristobal, | | | 2019 | sherrill | | WARP KNIT OPERATOR [address] | | | | | | [place], [place] | | | | | | [address] | | | | | | [phone] | | | | | | | | +--------+ + + + + documented as of this encounter Visit Diagnoses Not on filedocumented in this encounter
--- OUTSIDE RECORDS SUMMARY | ~2020-03-23 | XMS | Encounter Summary ---
Demographics + + + | Address | [address] | | | [place] [address] | + + + | Home Phone [...] [place], [place] | | | | | [address] | | + + + + + | Ellie Vang | ECON | Unknown | | + + + + + Care Team Providers + +------+ + | Care Tetryl Screen Operator Name | Role | Phone | [...] | | | | | | | [address] | | | | | | [address] | | | | | | | Physicians | | | | | | | Pavilion, 2nd | | | | | | | Floor | | | | | | | [place], [place] | | | | | | | [address] | | | | | | | Phone: | | | | | | | [phone] | | | | | | | Fax: | | | | | | | [phone] | +--------+--------+ + + + + Encounter [...] | | | [facility] [address] | [facility] [address] | or gangrene (Primary | | | | [address] | [place], [place] | Dx) | | | | Physicians [place], | [address] | | | | | 2nd Floor | [phone] | | | | | [facility] [place] | | | | | | [address] | | | | | | [phone] | | | +--------+---------+ + + + [...] Rocha MD,MPH - 11/05/2015 2:09 PM PDT [facility] Department of Surgery EGS/TRAUMA Surgery Clinic Note [...] 500 mg by mouth once daily. CALCIUM CRB&IAZ-U9-DQP85-GENIS [place] Take 1 tablet by mouth two [...] were answered. Christian Rocha MD MPH FACS [facility] stockfeed miller Trauma, Critical Care & Acute Care Surgery [facility] [phone] documented in thi s encounter Plan of Treatment +--------+ + + + + | Date | Type | Specialty | Care Team | Description | +--------+ + + + + | 04/04/ | Telephone-S | Surgery | Orquidea Cristobal, | | | 2019 | chesteve | | SUPERVISOR CHAR HOUSE [address] | | | | | | [place], [place] | | | | | | [address] | | | | | | [phone] | | | | | | | | +--------+ + + + + documented as of this encounter Visit Diagnoses + + | Diagnosis | + + | Ventral hernia without obstruction or gangrene - Primary Ventral hernia, unspecified, | | without mention of obstruction or gangrene | + + documented in this encounter"
--- OUTSIDE RECORDS SUMMARY | ~2020-03-23 | XMS | Encounter Summary ---
Demographics + + + | Address | [address] | | | [place] [address] | + + + | Home Phone [...] + + + | Author | [facility] | | | and Jeffana | + + + | Organization | [facility] | | [...] Team Providers + +------+ + | Care Bag Turner Name | Role | Phone | + +------+ + PCP | Unavailable | + +------+ + Encounter Details +--------+ + + + + | Date | Type | Department | Care Team | Description | +--------+ + + + + | 10/20/ | Orders Only | [facility] | Dharmesh Escobar, | | | 2016 | | NEPHROLOGY [place] | MICROBIAL SPECIALIST [address] | | | | | [address] | [address] | | | | | [address] [place], [place] | [place] | | | | | [address] | [address] | | | | | [phone] | [phone] | | | | | | | [...] [address] | | | | | | [place] [address] | | | | | | [phone] | | | | | | | | +--------+ + + + + | 04/18/ | Procedure | Neurology | Camille De La Paz, | | | 2019 | visit | | [address] | | | | | | [address] | | | | | | [place] [address] | | | | | | [phone] | | | | | | | [...]
--- OUTSIDE RECORDS SUMMARY | ~2020-03-23 | XMS | Encounter Summary ---
Demographics + + + | Address | [address] | | | [place] [address] | + + + | Home Phone [...] + | Katalina Padilla | ECON | [address] | | | | | [place], [place] | | | | | [address] | | + + + + + | Ellie Vang | ECON | Unknown | | + + + + + Care Team Providers + +------+ + | Care Deep Well Contractor Name | Role | Phone | [...] 2019 | Visit | Preventive at [facility] | MD [address] | mellitus without | | | | [address] | [place], [place] | complication, with | | | | [place] [facility] | [address] | long-term current | | | | and Healing, | [phone] | use of insulin (HCC) | | | | Building [address] | | (Primary Dx); | | | | [place], [place] | | Morbid obesity with | | | | [address] | | BMI of 70 and over, | | | | [phone] | | adult (HCC) | +--------+---------+ + [...] daily. BELBUCA 300 mcg buccal film CALCIUM CRB&VTQ-B5-LHP69-GENIS [place] Take 2 tablets by mouth two [...] of metformin, and she reports her last msmcm-fn-utsa A1 c was 5.5% on this dose. [...] CREATININE PLASMA (LAB) 0.85 0.70 EGFR - PARAGUAYAN >60 >60 EGFR NON -PARAGUAYAN >60 >60 GLUCOSE, PLASMA (LAB) 123 (H) [...] is currently being managed well by her Retail Account Specialist with diuretics and main tenance of [...] management of her heart failure by her Retail Account Specialist 3) discontinue metformin 4) check 24 urine [...] | | 2019 | chesteve | | TRACTOR CRANE OPERATOR [address] | | | | | | [facility] [place], [place] | | | | | | [address] | | | | | | [phone] | | | | | | | [...] + + | [facility] - | [address] | [place] | [phone] | | [place] | | | | [...]
--- OUTSIDE RECORDS SUMMARY | ~2020-03-23 | XMS | Encounter Summary ---
Demographics + + + | Address | [address] | | | [place] [address] | + + + | Home Phone [...] [place], [place] | | | | | [address] | | + + + + + | Ellie Vang | ECON | Unknown | | + + + + + Care Team Providers + +------+ + | Care Liquefied Natural Gas Operator Name | Role | Phone | [...] 2014 | | Preventive at [facility] | MD [address] | | | | | [address] | [place], [place] | | | | | [facility] | [address] | | | | | and [place], | [phone] | | | | | [facility] 1 | | | | | | [place], [place] | | | | | | [address] | | | | | | [phone] | | | +--------+ + + + [...] Tim - 04/26/2015 12:[address] [facility] Provider Dr. Franks patient Medication phentermine 37.5 [...] | | 2019 | sherrill | | PATIENT DAY COORDINATOR [address] | | | | | | [place], [place] | | | | | | [address] | | | | | | [phone] | | | | | | | | +--------+ + + + + documented as of this encounter Visit Diagnoses Not on filedocumented in this encounter"
--- OUTSIDE RECORDS SUMMARY | ~2020-03-23 | XMS | Encounter Summary ---
Demographics + + + | Address | [address] | | | [place] [address] | + + + | Home Phone [...] Team Providers + +------+ + | Care [place] Boatman Name | Role | Phone | + +------+ + PCP | Unavailable | + +------+ + Encounter Details +--------+ + + + + | Date | Type | Department | Care Team | Description | +--------+ + + + + | 06/19/ | Hospital | [facility] | Fadi Goodrich, | | | 2002 | Encounter | [address] | [place] [address] [place] | | | | | [address] | [address] | | | | | [place], [place] | [place] [address] | | | | | [address] | [phone] | | | | | [phone] | | | +--------+ + + + [...] R[address]HEY | | | | | | [place] [address] | | | | | | [phone] | | | | | | | | +--------+ + + + + | 04/18/ | Procedure | Neurology | Camille De La Paz, | | | 2019 | visit | | MD [address] | | | | | | [address] | | | | | | [place] [address] | | | | | | [phone] | | | | | | | | +--------+ + + + + documented as of this encounter Visit Diagnoses Not on filedocumented in this encounter"
--- OUTSIDE RECORDS SUMMARY | ~2020-03-23 | XMS | Encounter Summary ---
Demographics + + + | Address | [address] | | | [place] [address] | + + + | Home Phone [...] [place], [place] | | | | | [address] | | + + + + + | Ellie Vang | ECON | Unknown | | + + + + + Care Team Providers + +------+ + | Care Scrummaster Name | Role | Phone | + [...] | | | | | | | [place] for | | | | | | | Health and | | | | | | | Healing, | | | | | | | Building [address] | | | | | | | [place], [place] | | | | | | | [address] | | | | | | | Phone: | | | | | | | [phone] | | | | | | | Fax: | | | | | | | [phone] | +--------+--------+ + + + + Encounter Details +--------+---------+ + + + | Date | Type | Department | Care Team | Description | +--------+---------+ + + + | 08/28/ | Office | Digestive Health | [address], | Morbid obesity (HCC) | | 2015 | Visit | Center at [facility] [address] | [place], [place] [address] | (Primary Dx); Type | | | | [address] [facility] | [address] | 2 diabetes mellitus | | | | [facility] and | [place], [place] | (HCC) | | | | [facility] 2 | [address] | | | | | [place], [place] | [phone] | | | | | [address] | | | | | | [phone] | | | +--------+---------+ + + + [...] as of this encounter Progress Notes [address], [facility], [place] - 08/28/2014 12:26 PM PSTFormatting of this note might be diff erent from the original. Referring Provider: Fadi Goodrich DO Outpatient [facility], Pre-Bariatric Surgery Visit Follow-up diet consult prior to having Frandy-En-Y gastric bypass surgery. Documented Time of Visit: 12:29 to 12:57 (28 minutes nvpk-jg-eilo with patient) SUBJECTIVE: Trying to follow a [...] post-surgery diet progression. 4. Call or send To The Top[employer] message to dietitian with any questions. Contact information was provided. Follow up with dietitian prior to surgery to review post-surgical recommendations. Yuli [address]s [address], [facility], [place] Pager# [phone] Electronically signed by Yuli Childs RD, [facility], [place] at 08/28/2014 4:46 PM PSTdocumented i n this encounter Plan of Treatment +--------+ + + + + | Date | Type | Specialty | Care Team | Description | +--------+ + + + + | 04/04/ | Telephone-S | Surgery | Orquidea Cristobal, | | | 2019 | sherrill | | SCHEDULE CHECKER [address] | | | | | | [place], [place] | | | | | | [address] | | | | | | [phone] | | | | | | | [...]
--- OUTSIDE RECORDS SUMMARY | ~2020-03-23 | XMS | Encounter Summary ---
Demographics + + + | Address | [address] | | | [place] [address] | + + + | Home Phone | | + + + | Preferred Language | Unknown | + + + | Marital Status | | + + + | Yazdanism Affiliation | Unknown | + + + | Race | White | + + + | Ethnic Group | Not or | + + + Author + + + | Author | [facility] | | | and Jeffana | + + + | Organization | [facility] | | | [...] Providers + +------+ + | Care Patient Account Liaison Name | Role | Phone | + [...] | specified | MD [address] | TIRE TRUCKER [address] | | | | | diseases of | [address] | [address] | | | | | liver | [place], | [address] | | | | | Procedures | [place] | [place], | | | | | office visit | [address] | [place] [address] | | | | | | Phone: | Phone: | | | | | | [phone] | [phone] | | | | | | Fax: | Fax: | | | | | | [phone] | [phone] | +--------+--------+ + + + + Encounter Details +--------+---------+ + + + | Date | Type | Department | Care Team | Description | +--------+---------+ + + + | 02/15/ | Office | [facility] | [facility], | Fatty infiltration | | 2019 | Visit | GASTROENTEROLOGY | SELINA Montes [address] | of liver (Primary | | | | [address] | [address] | Dx); History of | | | | [address] [place], [place] | [place], [place] | Frandy-en-Y gastric | | | | [address] | [address] | bypass; Itching; | | | | [phone] | | Diarrhea, | | | | [...] en Y gastric bypass done 03/03/2018 at [facility]. She reports that approximately [...] well. [facility] the next 2 weeks. [...] right ventricular diastolic dysfunction (HCC) 10/26/2015 Overview: [facility] Last Assessment & Plan: [...] o besity Pickwickian syndrome Recent admission to [facility] for 100lb weight gain- DC on [...] (HCC) 04/14/2013 Diabetes mellitus with insulin therapy ([facility]) 12/27/2014 DM (diabetes mellitus) ([facility]) 05/09/2016 Overview: A1c 5.29 Aug 2014 Last [...] with morbid obesity, she is enrolled in [facility] bariatric program. She has lost [...] Plan: TSH WNL 10/2015. She is on bogota thyroid as OP. -TSH WNL -continu e supplementation here Hypoventilation associated with obesity ([facility]) 06/16/2013 Last Assessment & Plan: [facility] Bariatric Program, has lost 50lbs. STEFANO (iron deficiency anemia) 02/03/2019 Overview: Presumed due to menses. Venofer 200 qd x 30 October 2015 [facility] Last Assessment & P [...] She is to follow-up with surgeons at [facility] as planned. Patient is [...] R[place]HEY | | | | | | [place] [address] | | | | | | [phone] | | | | | | | | +--------+ + + + + | 04/18/ | Procedure | Neurology | Camille De La Paz, | | | 2019 | visit | | [address] | [address] | | | | | | [place] [address] | | | | | | [phone] | | | | | | | [...]
--- OUTSIDE RECORDS SUMMARY | ~2020-03-23 | XMS | Encounter Summary ---
Demographics + + + | Address | [address] | | | [place] [address] | + + + | Home Phone [...] [place], [place] | | | | | [address] | | + + + + + | Ellie Vang | ECON | Unknown | | + + + + + Care Team Providers + +------+ + | Care Lead Refiner Name | Role | Phone | + +------+ + | Fadi Goodrich DO | PCP | | + +------+ + Encounter Details +--------+---------+ + + + | Date | Type | Department | Care Team | Description | +--------+---------+ + + + | 01/11/ | Office | Digestive Health | | Morbid obesity (HCC) | | 2018 | Visit | Center at [facility] [address] | | (Primary Dx) | | | | [facility] | | | | | | for Health and | | | | | | Healing, [address] | | | | | | [place], [place] | | | | | | [address] | | | | | | [phone] | | | +--------+---------+ + + + [...] of Class: 1055 until 1155 (60 minutes jnsw-wg-ssgi with patient) Teaching Methods: PowerPoint and verbal [...] a journal with fluid/protein d. Transportation 7. [place] [facility] 8. Surgical [...] | | 2019 | chesteve | | SPEEDBOAT OPERATOR [address] | | | | | | [place], [place] | | | | | | [address] | | | | | | [phone] | | | | | | | | +--------+ + + + + documented as of this encounter Visit Diagnoses + + | Diagnosis | + + | Morbid obesity (HCC) - Primary Morbid obesity | + + documented in this encounter"
--- OUTSIDE RECORDS SUMMARY | ~2020-03-23 | XMS | Encounter Summary ---
Demographics + + + | Address | [address] | | | [place] [address] | + + + | Home Phone [...] [place], [place] | | | | | [address] | | + + + + + | Ellie Vang | ECON | Unknown | | + + + + + Care Team Providers + +------+ + | Care Snack Bar Cook Name | Role | Phone | + +------+ + | Fadi Goodrich DO | PCP | | + +------+ + Encounter Details +--------+------+ + + + | Date | Type | Department | Care Team | Description | +--------+------+ + + + | 11/20/ | Lab | [facility] at [facility] | | Morbid obesity with | | 2017 | | [address] | | BMI of 70 and over, | | | [facility] | | adult ([facility]); | | | | and Healing, | | 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[address] | | 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[place], [place]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 ([facility]); | | | | [address] | | Type 2 diabetes | | | | [phone] | | mellitus without | | | | | | complication, with | | | | | | long-term current | | | | | | use of insulin ([facility]) | +--------+------+ + + + Social [...] | | 2020 | cheduled | | HAND COPER [address] | | | | | | [place], [place] | | | | | | [address] | | | | | | [phone] | | | | | | | [...] | | | PDT | over, adult ([facility]) | results section. | | | | | 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| | 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 ([facility]) | | + +--------+ + + + | VITAMIN B1, WHOLE | Routin | 11/20/2017 | Morbid obesity | Results for this | | BLOOD | e | 10:01 AM | with BMI of 70 and | procedure are in the | | | | PDT | over, adult ([facility]) | results section. | | | | | 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| | 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 ([facility]) | | + +--------+ + + + | VITAMIN D, | Routin | 11/20/2017 | Morbid obesity | Results for this | | 25-HYDROXY, SERUM | e | 10:01 AM | with BMI of 70 and | procedure are in the | | | | PDT | over, adult ([facility]) | results section. | | | | | 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| | 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 ([facility]) | | + +--------+ + + + | COMPLETE METABOLIC | Routin | 11/20/2017 | Morbid obesity | Results for this | | SET | e | 10:01 AM | with BMI of 70 and | procedure are in the | | (NA,K,CL,CO2,BUN,CRE | | PDT | over, adult ([facility]) | results section. | | AT,GLUC,CA,AST,ALT,B | | | Diabetes mellitus | | | MARGIE TOTAL,ALK | | | type 2 without | | | PHOS,ALB,PROT TOTAL) |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 ([facility]) | | + +--------+ + + + | CBC ONLY | Routin | 11/20/2017 | Morbid obesity | Results for this | | | e | 10:01 AM | with BMI of 70 and | procedure are in the | | | | PDT | over, adult ([facility]) | results section. | | | | | 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| | 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 ([facility]) | | + +--------+ + + + | FERRITIN | Routin | 11/20/2017 | Morbid obesity | Results for this | | | e | 10:01 AM | with BMI of 70 and | procedure are in the | | | | PDT | over, adult ([facility]) | results section. | | | [...] | | | PDT | over, adult ([facility]) | results section. | | | | | 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| | 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 ([facility]) | | + +--------+ + + + | VITAMIN B-12 | Routin | 11/20/2017 | Morbid obesity | Results for this | | | e | 10:01 AM | with BMI of 70 and | procedure are in the | | | | PDT | over, adult ([facility]) | results section. | | | | | 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| | 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 ([facility]) | | + +--------+ + + [...] LABORATORY | [address] | [place] [address] | | | [facility] | | | | | HEALTH [...] | + + + + + | [facility] | [address] | [place], [place] | | | SERVICES, LIPID | [address] | [address] | | + + + + + [...] | [facility] | | considered for monitoring exterminator helper termite glycemic control in patients with: | LABORATORY [...] + + | [facility] | [address] | [place] [address] | | | SERVICES, SPECIAL | PARK [...] | | | | | determined by [facility] | | | | | | Laboratories. See | | | | | | Compliance Statement B: | | | | | | Carebase/CSPerformed | | | | | | by [employer],[address] | | | | | | Liliana Martinez [facility],[place] | | | | | | [id number] | | | | | | [phone].[employer]. | | | | | | Ismael [...] [facility] | [address] | [place], [place] | | | [facility] | | [id number] | | + + + + + [...] | | | LABORATORY | | | [facility] | | | SERVICES, | | | [...] the MDRD equation recommended by the | [facility] | | National Kidney Disease Education Program. [...] | + + + + + | [facility] | [address] | [place] [address] | | | LYDIA RANGEL | CLARENCE [...] [facility] | [address] | [place] [address] | | | CLAIRE, LYDIA | PARK [...] | + + + + + | [facility] | [address] | [place] [address] | | | SERVICES, CORE | CLARENCE [...] [facility] | [address] | [place] [address] | | | SERVICES, CORE | CLARENCE [...] [facility] | [address] | [place] [address] | | | SERVICES, CORE | PARK [...] | + + + + + | [facility] | [address] | [place] [address] | | | SERVICES, CORE | PARK [...]
--- OUTSIDE RECORDS SUMMARY | ~2020-03-23 | XMS | Encounter Summary ---
Demographics + + + | Address | [address] | | | [place] [address] | + + + | Home Phone [...] + | Katalina Padilla | ECON | [address] | | | | | [place], [place] | | | | | [address] | | + + + + + | Ellie Vang | ECON | Unknown | | + + + + + Care Team Providers + +------+ + | Care Ruby On Rails Engineer Name | Role | Phone | + +------+ + | Kenyatta Cardenas MD | PCP | | + +------+ + Encounter Details +--------+ + + + + | Date | Type | Department | Care Team | Description | +--------+ + + + + | 01/26/ | Abstract | Cardiology | Branden Gutiérrez MD | | | 2019 | | Preventive at [facility] | [address] | | | | | [address] | [place], [place] | | | | | [facility] | [address] | | | | | and [place], | [phone] | | | | | [address] | | | | | | [place], [place] | | | | | | [address] | | | | | | [phone] | | | +--------+ + + + [...] | | 2019 | cheduled | | 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
--- OUTSIDE RECORDS SUMMARY | ~2020-03-23 | XMS | Encounter Summary ---
Demographics + + + | Address | [address] | | | [place] [address] | + + + | Home Phone [...] + | Katalina Padilla | ECON | [address] | | | | | [place], [place] | | | | | [address] | | + + + + + | Ellie Vang | ECON | Unknown | | + + + + + Care Team Providers + +------+ + | Care Lead Database Developer Name | Role | Phone [...] | Encounter | [address] | [address] | | | | | [place], [place] | [address] | | | 08/23/ | | [address] | [place], [place] | | | 2019 | | [phone] | [address] | | | | | | [phone] | | | | | | | | | | | | Nay Joe, | | | | | | [address] | | | | | | [address] | | | | | | [place], [place] | | | | | | [address] | | | | | | [phone] | | | | | | | | | | | | Jones Woo, | | | | | | [address] [facility] | | | | | | [address] | | | | | | [place], [place] | | | | | | [address] | | | | | | [phone] | | | | | | | [...] the gallo. She was transitioned off her PATIENT BILLER on POD1. She di d have difficulty [...] condition. She will follow up at the [facility] with Dr. Woo in 2- 3 [...] by mouth once daily at bedtime. CALCIUM CRB&PLT-T6-YFW50-GENIS ORAL Take 2 tablets by mouth two [...] daily. ASK your doctor about these medications EARRING MAKER THYROID 30 mg Tab tab Generic drug: [...] the prescribed narcotic-opioid (e.g. oxycodone, hydrocodone, Vicodin, Bath, Percocet, Dilaudid) as needed. However, Vicodin/Bath and Percocet contain acetam inophen in the [...] Narcotic-opioid pain medications (e.g. oxycodone, hydrocodone, Vicodin, Bath, Percocet, Di laudid) can be constipating, therefore you should take a stool softener on the same day as s tarting your narcotic pain medicine. Options include: Milk of Magnesia: 2 Tablespoons Twice daily Colace (=Docusate): 1 pill Twice daily Miralax: 1 Tablespoon (17 grams) daily (check bottle for mixing instructions) While these are some recommendations, any ivog-ivk-nclpitr stool softener should work, and generics are [...] and plan of care. JONES WOO MD [facility] [address] [place] [phone] documented in this encounter Discharge Instructions Discharge [...] hours by calling the surgery office at [phone]. After hours, weekends and holidays, you may call the hospital miter saw operator at [phone] and have the carbon sequestration plant manager Green Team for general surgery paged. Discharge [...] the gallo. She was transitioned off her PATIENT BILLER on POD1. She did have dif ficulty [...] dition. She will follow up at the [facility] with Dr. Woo in weeks. She [...] the prescribed narcotic-opioid (e.g. oxycodone, hydrocodone, Vicodin, Bath, Percocet, Dilaudid) as needed. However, Vicodin/Bath and Percocet contain acetam inophen in the [...] Narcotic-opioid pain medications (e.g. oxycodone, hydrocodone, Vicodin, Bath, Percocet, Di laudid) can be constipating, therefore you should take a stool softener on the same day as s tarting your narcotic pain medicine. Options include: Milk of Magnesia: 2 Tablespoons Twice daily Colace (=Docusate): 1 pill Twice daily Miralax: 1 Tablespoon (17 grams) daily (check bottle for mixing instructions) While these are some recommendations, any zqzi-fzs-ljuthiy stool softener should work, and generics are fine to use. Increase your fluids, especially your intake of water Increase your activity. Walk frequently. ANTICOAGULATION: We recommend you make an appointment to be seen in your local anticoagulation clinic on Thu08/25/19 to recheck your INR and for ongoing management of your warfarin. FOLLOW-UP: Please call Dr. Woo's office ([phone]) to schedule a follow-up appointment for 2-3 [...] | | 0 | | | | CRB&NFL-Q6-LTL77-GEN | mouth two times | | | [...] + + +---------+ + + | thyroid (EARRING MAKER | Take 30 mg by mouth | [...] michelle Chandler MD [facility] Surgery, PGY-1 Green Construction Estimator Pager: [phone] signed by Jones Woo MD at 08/22/2019 [...] Gadiel Chandler MD [facility], PGY-1 Green Construction Estimator Pager: [phone] Associated attestation - Jones Woo MD - 08/21/2019 9:57 AM PSTI performed a hist ory and physical examination of the patient and discussed her management with the resident. I reviewed the resident s note and agree with the documented findings and plan of care. JONES WOO MD [facility] [address] [place] [phone] Valencia Zamora MD - 08/20/2019 8:42 AM [...] well. - kilgore out today - dc PATIENT BILLER - ppx lovenox today - therapeutic lovenox [...] care -Multimodal pain control Joselyn Everett MD [facility] General Surgery PGY1 [id number] Gadiel Armstrong MD - 08/19/2019 12:34 PM [...] hernia repair with mesh Gadiel Chandler MD [facility], PGY-1 Green Construction Estimator Pager: [phone] documented in this encounter H&P Notes Jones Woo MD - 08/18/2019 3:54 PM PST DEPARTMENT OF SURGERY [facility] Surgery History and Physical Patient: Dylan Romero ([id number]) Date: 08/18/2019 Chief Complaint: Abdominal pain History [...] days and worsening pain sp driving to [facility] from [employer]. Past Surgical History Procedure Laterality Date Tonsillectomy and adenoidectomy Appendectomy, open 2010 Umbilical hernia repair 2010 Treatment of ankle fracture with screws remaining Incision and drainage of wound abscess x2 midline transverse wound s/p open appendectomy 2010 Ventral hernia repair 10/2012 Dr. Andie Brian Incisional hernia repair 03/01/2015 [facility]/ Dr. Cantu. Primary fascial closure and scar excision Lap gastric byp, and nish-en-y gastroenterostomy w/ nish limb 150 cm or less [facility], Dr Pandey Cholecystectomy, laparoscopic Past Medical History: [...] index of 70 and over in adult ([facility]) Myalgia and myositis Nausea Neck pain Numbness Osteoarthritis of knee Palpitations Shortness of breath Sleep apnea TIA (transient ischemic attack) due to Bromocriptine Prior to Admission Medications Prescriptions ALPRAZolam 1 mg oral tablet Sig: Take 1 mg by mouth twice daily as needed. CALCIUM CRB&FET-C5-ADI46-GENIS ORAL Sig: Take 2 tablets by mouth [...] file Gets together: Not on file Attends pentecostal service: Not on file Active member of club or organization: Not on file Attends meetings of clubs or organizations: Not on file Relationship status: Not on file Other Topics Concern Not on file Social History Narrative Updated 11/09/15 She lives in [place] with her mother and her sister (also her caregiver) lives in an apa rtment/duplex below. She has 2 grandchildren (age 4 and 7) who live with her daughter and son-in-law Her boyfriend lives in [place] HFpEF, DM2, HTN, Sleep Apnea (unable to [...] program here and refer her to our business taxes specialist who also has expertise in physical [...] acute on chronic sp her travels to [place]. She is scheduled for surgery tomorrow. Admit [...] exacerbation of her pain with ride from [facility] is unusual. No acu te changes noted on exam or labs. Will plan to admit and control pain overnight and operat e in am. JONES WOO MD [facility] [address] [place] [address] documented in this encounter Consult Notes [...] - Anticoagulation Clinic/Provider: PCP: Dr Davison at [facility], Edie han at [facility] Lab Date INR Warfarin Dose 08/23 1.04 [...] make recommendations. Please page clinical ph armacist (#[phone]) or call central inpatient pharmacy ([phone]) with questions. Megan Marx PharmD Candidate 2019 Associated attestation - Nicholas Davison PharmD - 08/23/2019 8:21 AM PSTI have personally reviewed the patients warfarin dosing and monitoring with the pharmacy district manager. I agree wi th their assessment and plan as outlined in the note. Thank you, Nicholas Davison PharmD Clinical Pharmacist [facility] Department of Pharmacy, CR 9-4 [address] [facility] [address] [place] [address] Pager: [phone] Megan Marx - 08/22/2019 10:06 AM PST [...] - Anticoagulation Clinic/Provider: PCP: Dr Davison at [facility], INRs complet ed at [facility] Lab Date INR Warfarin Dose 08/22 1.08 [...] make recommendations. Please page clinical ph andra (#[phone]) or call central inpatient pharmacy ([phone]) with questions. Megan Marx, PharmD Candidate 2019 Associated attestation - Nicholas Davison PharmD - 08/23/2019 8:17 AM PSTI have personally reviewed the patients warfarin dosing and monitoring with the pharmacy district manager. I agree wi th their assessment and plan as outlined in the note. Thank you, Nicholas Davison PharmD Clinical Pharmacist [facility] Department of Pharmacy, CR 9-[address] [facility]. [place], [place] [address] Pager: [phone] Nicholas Davison PharmD - 08/20/2019 8:51 AM [...] and make recommendations. Please page clinical pharmacist (#[phone]) or call central inpatient pharmacy ([phone]) with questions Subjective/Objective: Allergies: Benadrilina [diphenhydramine hcl]; [...] Clinical Pharmacist [facility] Department of Pharmacy, CR 9-[address] [place], [place] [address] Pager: [phone] Gena Welsh - 08/18/2019 7:25 PM PST Pharmacy Services: Admission Medication Reconciliation Prior to Admission Medications: Prior to Admission Medications Prescriptions Last Dose Informant Patient Reported? Taking? ALPRAZolam 1 mg oral tablet 08/18/2019 at 05:00 Yes Yes Sig: Take 1 mg by mouth three times daily as needed. CALCIUM CRB&RDJ-N3-SMS98-GENIS ORAL 08/17/2019 at PM Yes Yes Sig: [...] 50 mg by mouth once daily. thyroid (EARRING MAKER THYROID) 30 mg oral tablet tab 08/17/2019 [...] regarding this information please contact pharmacy, pager [phone] Gena Price PharmD doyohan mented in this [...] 04/14/2013 Priority: 3 Hypoventilation associated with obesity ([facility]) 06/16/2013 Priority: 4 AMARA (obstructive sleep apnea) 04/14/2013 Priority: 4 Overview Note: Cannot tolerate CPAP Severe Morbid obesity ([facility]), BMI 88 11/12/2012 Priority: 4 Overview Note: Lifetime max: 495 lbs Phentermine started Type 2 diabetes mellitus ([facility]) 04/14/2013 Priority: 5 Iron deficiency anemia due to chronic blood loss 11/11/2015 Priority: 6 Overview Note: Ferritin 18 on 10/2015 Hypoalbuminemia (no proteinuria, need to rule out synthetic, nutrition, loss) 6 Priority: 6 Hypothyroidism 08/28/2014 Priority: 8 Hypothyroidism 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 03/10/2018 Morbid obesity with BMI of 70 and over, adult ([facility]) 02/02/2017 Chronic diastolic heart failure ([facility]) 02/02/2017 Immobility 02/02/2017 Severe muscle deconditioning 02/02/2017 Personal history of DVT (deep vein thrombosis) 02/02/2017 History of pulmonary embolism 02/02/2017 Benign essential HTN 02/02/2017 Diabetes mellitus type 2 without retinopathy ([facility]) 02/02/2017 Hyperlipidemia 02/02/2017 Ventral hernia [...] to Bromocriptine Myalgia and myositis Bipolar disorder ([facility]) Depression Anemia Chronic wound infection of abdomen from 2010 Morbid obesity with body mass index of 70 and over in adult ([facility]) Incisional hernia, incarcerated 2012 Hernia of abdominal wall Dizziness Numbness Nausea Abdominal pain Shortness of breath Palpitations Kidney stone Leaking of urine Irregular periods Leg sore Anxiety Sleep apnea Hypothyroidism Morbid obesity ([facility]) Past Surgical History Procedure Date Tonsillectomy and adenoidectomy Appendectomy, open 2010 Umbilical hernia repair 2010 Treatment of ankle fracture with screws remaining Incision and drainage of wound abscess x2 midline transverse wound s/p open appendectomy 2010 Ventral hernia repair 10/2012 Dr. Andie Brian Incisional hernia repair 03/01/2015 [facility]/ Dr. Cantu. Primary fascial closure and scar excision Lap gastric byp, and nish-en-y gastroenterostomy w/ nish limb 150 cm or less 03/01/2018 [facility], Dr Pandey Cholecystectomy, laparoscopic Medications Prior to Admission Medications Prescriptions Last Dose Informant Patient Reported? Taking? ALPRAZolam 1 mg oral tablet Yes No Sig: Take 1 mg by mouth twice daily as needed. CALCIUM CRB&ZUC-B0-KAD77-GENIS ORAL Yes No Sig: Take 2 tablets [...] history - former tobacco. Currently living at [facility]. Social History Tobacco Use Smoking status: Former [...] 1:56 PM PSTPt arrived by ambulance from [place], stating she is scheduled to have hernia surgery with Dr. Woo tomorrow. Reports worsening abd pain today, rates 7/10 and constant, with nausea. Last PO was at 1100 today. Mary Suarez RN - 08/18/2019 1:47 PM PSTBed: HW B Expected date: Expected time: Means of arrival: Comments: [id number] signed by Mary Hess RN at 08/18/2019 [...] shift to promote sleep and rest. (08/22/191952) [facility] IP NURSE HANDOFF: Jiang hospital course events: [...] RN - 08/22/2019 6:18 PM PSTNursing Handoff [facility] IP NURSE HANDOFF: NURSING ASSESSMENT & RECOMMENDATIONS [...] pain managed to allow for sleep. (08/21/191929) [facility] IP NURSE HANDOFF: Jiang hospital course events: [...] bel managed to allow for sleep. (08/20/192015) [facility] IP NURSE HANDOFF: Jiang hospital course events: [...] -Home cpap @ night -Pain controlled with [id number] Q4hr PRN -VSS -Ad jelena -REG diet -Periwound skin of incisions reddened. Continue to monitor. Lidocaine patch placed on abdom en for severe tenderness. Barriers to discharge: Pain management lan of Care - Micah Nieto, PT - 08/20/2019 3:55 PM PST Physical Therapy Evaluation and Discharge 08/20/2019 3:55 PM Hospital Day: 2 [id number] DYLAN ROMERO Date of : 1975 Start of care: 08/18/2019 Referring/Attending Practitioner: Jones Woo MD Primary/Referral Diagnosis/ICD-9: K43.9 Ventral hernia without obstruction or gangrene E66.01 Severe Morbid obesity (HCC), BMI 88 K46.0 Incarcerated hernia Insurance: Payor: [place] [employer] / Plan: [facility] [place] / Product Type: Medicaid / [...] to go home, reduce pain Communication: appropriate, indonesian Barriers: recurrent hernias Pain: 03/05 at incision [...] x1 down per patient request. Outcome Measure: [facility] BASIC MOBILITY Difficulty turning over in bed [...] A Little - Minimal/Contact Guard Assist/Superv ision [facility] Basic Mobility Total Score 23 Interpretation of [facility] Short Form - Basic Mobility: CMS Modifier [...] RN - 08/20/2019 4:13 AM PSTNursing Handoff [facility] IP NURSE HANDOFF: Jiang hospital course events: [...] by: [place] pain is well controlled with PATIENT BILLER. She is tolerating well. Recommendations Forward: -Home cpap approved for use in hospital -Pain control with hydromorphone PATIENT BILLER -Kilgore catheter in place Barriers to discharge: -PATIENT BILLER for pain control -MIVF -Kilgore catheter p Note - Mary Theodore MD - 08/19/2019 6:26 PM PSTDate of Service: 08/19/2019 Attending Surgeon: Jones Woo MD Bundle Wrapper(s): Nicholas Theodore MD Preoperative Diagnosis: Incarcerated incisional [...] the case. MD Jones Rivera MD NK/MODL /[id number] I was present for the hernia repair JONES WOO MD [facility] [address] [place] [address] rief Op Note - Nicholas Daily MD - 08/19/2019 5:18 PM PST Date of procedure: 08/19/2019 Times Event Time In Procedure Start ThuAug 19, 2019 1458 Location: [facility] Surgeon(s) and Role: * Jones Woo MD - Primary Staff: Earring Maker: Angelica Ga RN Scrub: ST Dwayne Earring Maker Relief: Amy Vega RN Scrub Relief: ST Renetta Office Machines Teacher: Nicholas Theodore MD Pre Op Dx INCARCERATED [...] Additional pain medication information: Functional Epidural: No PATIENT BILLER: Yes Respiratory: RR: 18 , O2 Sat: 97 % , O2 Delivery: None (room air) Breath Sounds: Ex (amara with BIPAP) ALFRED: LLL: RUL: RLL: AMARA Yes Comment: no apneic breathing noticed Cardiac: BP: 128/73 HR: 74 GI: Nausea/Vomiting Status: No Signs/Symptoms: Interventions: Assessment: Comments: remains NPO : Last void: Kilgore draining Contact Name: Katalina Padilla Contact Number: [phone] (OK to leave message per patient) Family contacted: Yes Comment: Pt has spoken with her mom Belongings: in room andoff - Alberto Osorio RN - 08/19/2019 3:10 AM PSTNursing Handoff [facility] IP NURSE HANDOFF: Jiang hospital course events: [...] Provider Specialty/Clinic: Gen surgery clinic Contact Number: [phone] to contact provider: Pager Callback required?: no Reason for callin44 y/o F w/ incarcerated hernia since January, presenting with acutely worsening pain, concern for ischemic hernia. Arriving by ambulance. Gadiel Hendricks PA-C Department of emergency medicine [phone] signed by Gadiel Hendricks PA-C at 08/18/2019 1:33 PM PSTComm Teresa Jaramillo - 08/18/2019 1:28 PM [id number] Just talked to Dr Woo, he req tx to [facility] due to pt having hernia surg BP 134/84 Sat 98% ra, HR 112 ETA 15 min. documented in this encounter Plan of Treatment +--------+ + + + + | Date | Type | Specialty | Care Team | Description | +--------+ + + + + | 04/04/ | Telephone-S | Surgery | Orquidea Cristobal, | | | 2019 | cheduled | | [employer]UR[employer] MECHANICAL ENGINEER [address] | | | | | | [place], [place] | | | | | | [address] | | | | | | [phone] | | | | | | | [...] [facility] | [address] | [place] [address] | | | SERVICES, CORE | PARK [...] + + + + | [facility] | [address] | [place] [address] | | | SERVICES, CORE | PARK [...] + + + + | [facility] | [address] [facility] | [place] [address] | | | SERVICES, LYDIA | LES[address] [...] [place] | [address] | [place], [place] | | | [place] [place]WN OF CARE | [facility] | [address] | | | TESTS | | | | + + + + + CAPILLARY BLOOD GLUCOSE (NO CHG), POC (08/19/2019 1:28 PM PST) + +-------+ + + + | Component | Value | Ref Range | Performed | Pathologist | | | | | At | Signature | + +-------+ + + + | BLOOD | 94 | 70 - 99 mg/dL | [facility] - | | | GLUCOSE, | | [...] [place] | [address] | [place], [place] | | | [place] [address]INT OF CARE | [address] | [address] | | | TESTS | | | [...] + | [facility] | [address] | [place] [address] | | | SERVICES, | [address] [...] + + + + | [facility] | [address] | [place] [address] | | | SERVICES, | [address] [...] [facility] | [address] | [place], [place] | | | [facility] | [address] | [address] | | | TESTS | | | [...] | [facility] | | | GRAVITY | [place] performed by | | LABORATORY | | [...] | + + + + + | [facility] | [address] | [place] [address] | | | SERVICES, CORE | LESLY [...] [facility] | [address] | [place] [address] | | | SERVICES, | [address] [...] + | [facility] | [address] | [place] [address] | | | SERVICES, CORE | LESLY [...] + | [facility] | [address] | [place] [address] | | | SERVICES, CORE | PARK [...] + | [facility] | [address] [facility] | [place] [address] | | | SERVICES, CORE | PARK [...] [facility] | [address] | [place] [address] | | | SERVICES, CORE | PARK [...] | | | LABORATORY | | | HAITIAN | | | SERVICES, | | | [...] + | [facility] | [address] | [place] [address] | | | SERVICES, CORE | [address] | | | + + + + + ED INFORMATION EXCHANGE (08/18/2019 1:47 PM PST) + + | Specimen | + + | | + + + + + | Narrative | Performed At | + + + | COLLECTIVE?NOTIFICATION?08/18/2019 13:47?DYLAN ROMERO?MRN: | COLLECTIVE | | [id number] Criteria Met 5 Visits In 12 Months Has | MEDICAL | | Guidelines PDMP Security and Safety No recent Security Events | [employer] | | currently on file ED Care Guidelines from [employer] [facility] | | | Last Updated: 12/06/18 9:53 AM Care Coordination: Receiving | | | mental health services with [employer].? Please contact [employer] for | | | mental health concerns.? Sarah/Toni Centeno: [phone]? | | | Kishan: [phone].? These are guidelines and the provider | | | should exercise clinical judgment when providing care. Care | | | History Medical/Surgical 05/24/19 12:00 AM [facility] | | | Hospital PATIENT HAS AN APT ON 06/16/[address] CARDENAS. | | | 05/11/19 12:00 AM [facility] Patient is | | | currently established with [facility]. If patient is seen in | | | the ED during business hours. Please contact [facility] at [facility] | | | [facility]. Care Recommendation: This patient has [...] care. 08/23/18 12:00 AM | | | [facility] PATIENT HAS A PCP APT TO ESTABLISH | | | CARE ON 10/04/18 @ 10:00AM WITH DR CARDENAS. Flags | | | [place] Disparity Measure - [place] a flag ([place] | | | Disparity Measure) to help support Medicaid members with mental | | | illness. [facility] uses claims data with a 36-month [...] | are updated weekly. / Attributed By: [facility] ([facility]) / | | | Attributed On: 08/09/2019 [...] (12 | | | mo.) Facility Visits [facility] 1 [facility] and | | | [facility] 2 [facility] 7 Total 10 Note: | | | Visits indicate total known visits. Recent Emergency Department | | | Visit Summary Date Facility City State Type Diagnoses or Chief | | | Complaint Aug 18, 2019 [facility] [place] | | | [place] Emergency [phone]. amr Jun 25, 2019 [facility] | | | [place] Emergency residential (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 | | | Anxiety disorder, unspecified Cellulitis of abdominal wall | | | Acute embolism and thrombosis of deep veins of r up extrem | | | Nicotine dependence, unspecified, uncomplicated Migraine, unsp, | | | not intractable, without status migrainosus Unspecified | | | abdominal pain Allergy status to oth drug/meds/biol subst status | | | Other usp (current) drug therapy Allergy status to | | | penicillin Jun 19, 2019 [facility] [place] Emergency | | | residential (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 Prsnl hx of [...] Jun 01, 2019 | | | [facility] [place] Emergency Headache Allergy | | | status to penicillin Anxiety disorder, unspecified | | | Obesity, unspecified Migraine, unsp, not intractable, without | | | status migrainosus Other usp (current) drug therapy | | | Allergy status to oth drug/meds/biol subst status residential | | | (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 residential (current) use of | | | aspirin May 23, 2019 [facility] [place] Emergency | | | Anxiety disorder, unspecified Acute embolism and thrombosis of | | | deep veins of r up extrem Allergy status to penicillin | | | Other usp (current) drug therapy Pain in right arm | | | residential (current) use of aspirin Allergy status to oth | | | drug/meds/biol subst status May 20, [address] [facility] | | | 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 Emergency | | | 10,800. A303 18,400. Bariatric surgery status 18,400. | | | Ventral hernia without obstruction or gangrene 18,400. Nausea | | | with vomiting, unspecified 18,400. Unspecified abdominal pain | | | 18,400. Nonspecific mesenteric lymphadenitis May 10, 2019 [facility] [place] Emergency Nausea with vomiting, | | | unspecified Solitary pulmonary nodule Anxiety disorder, | | | unspecified Ventral hernia without obstruction or gangrene | | | Unspecified abdominal pain Diarrhea, unspecified Allergy | | | status to oth drug/meds/biol subst status Prsnl hx of TIA (TIA), | | | and cereb infrc w/o resid deficits Other rn long term care (current) | | | drug therapy Allergy status to penicillin December 03, 2018 [facility] | | [facility]. [place] Emergency RIGHT LEG PAIN DUE TO FALL | | | Strain of unsp musc/tend at lower leg level, right leg, init | | | Aug 22, 2018 [facility] [place] [place] [place] Emergency Other | | | usp (current) drug therapy Upper abdominal pain, | | | unspecified Bariatric surgery status Allergy status to oth | | | drug/meds/biol subst status Noninfective gastroenteritis and | | | colitis, unspecified Obesity, unspecified Anxiety | | | disorder, unspecified residential (current) use of aspirin | | | Allergy status to penicillin Personal history of pulmonary | | | embolism Recent Inpatient Visit Summary No recorded | | | inpatient visits. Care Team Provider Specialty Phone Fax Service | | | Dates Eagle Nino CHW Community Health Worker | | | Jul 03, 2019 - Current JONES DAVISON D.M.D. Dentist: | | | Dental Appliance Mechanic May 23, 2019 - | | | Current Rob Tilley Machinist 2Nd Shift/Pond Tender ([id number]) | | | [phone] Mar 27, 2018 - Current Bernard Cardenas MD Internal | | | Medicine: Pulmonary Disease Aug 23, 2018 - Current | | | [facility] Portal This patient has registered at the [facility] | | | [facility] Emergency Department For more information | | | visit: | | | [email or web address] | | | [email or web address] a PLEASE NOTE: 1. Any care recommendations [...] or completeness of information provided. ? 2020 [employer] | | | [employer]. - [email or web address] | | + + + [...] on fileED Care Guidelines | | from [employer] - [place] Updated: 12/06/18 9:53 AM Care Coordination:Receiving | | mental health services with [employer].? Please contact [employer] for mental health | | concerns.? Sarah/Toni Centeno: [phone]? Kishan: [phone].?These are | | guidelines and the provider should exercise clinical judgment when providing care.Care | | HistoryMedical/Hkuxptce37/29/19 12:00 AM [facility] PATIENT HAS AN APT | | ON 06/16/[address] CARDENAS.05/11/19 12:00 AM [facility] Patient is | | currently established with [facility]. If patient is seen in the ED during | | business hours. Please contact CHWs at [facility].Care Recommendation:This | | patient has [...] when providing | | care.08/23/18 12:00 AM [facility] PATIENT HAS A PCP APT TO ESTABLISH CARE | | ON 10/04/18 @ 10:00AM WITH DR CARDENAS. Flags [place] ED Disparity Measure - [place] has | | developed a flag ([place] Disparity [place]) to help support Medicaid members with | | mental illness. [facility] uses claims data with a 36-month [...] 0 E.D. Visit Count (12 mo.)Facility Visits [facility] 1 [facility] | [facility] 2 [facility] 7 Total 10 Note: Visits indicate | | total known visits. Recent Emergency Department Visit SummaryDate Facility City State | | Type Diagnoses or Chief Complaint Aug 18, 2019 [facility] | | [place] Emergency 10,800. amr Jun 25, [address] [facility] [place] Emergency | | residential (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 Anxiety disorder, unspecified | | Cellulitis of abdominal wall Acute embolism and thrombosis of deep veins of r up | | extrem Nicotine dependence, unspecified, uncomplicated Migraine, unsp, not | | intractable, without status migrainosus Unspecified abdominal pain Allergy status | | to oth drug/meds/biol subst status Other usp (current) drug therapy Allergy | | status to penicillin Jun 19, [address] [facility] [address] [facility] 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 [facility] | | [place] Emergency Anxiety disorder, unspecified Acute embolism and thrombosis of | | deep veins of r up extrem Allergy status to penicillin Other rn long term care (current) | | drug therapy Pain in right arm residential (current) use of aspirin Allergy | | status to oth drug/meds/biol subst status May 20, 2019 [facility] 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 Emergency | | 10,800. A303 18,400. Bariatric surgery status 18,400. Ventral hernia without | | obstruction or gangrene 18,400. Nausea with vomiting, unspecified 18,400. | | Unspecified abdominal pain 18,400. Nonspecific mesenteric lymphadenitis May 10, 2019 | | [facility] [place] Emergency Nausea with vomiting, unspecified Solitary | | pulmonary nodule Anxiety disorder, unspecified Ventral hernia without obstruction | | or gangrene Unspecified abdominal pain Diarrhea, unspecified Allergy status to | | oth drug/meds/biol subst status Prsnl hx of TIA (TIA), and cereb infrc w/o resid | | deficits Other rn long term care (current) drug therapy Allergy status to penicillin November | | 2018 [facility]. [place] Emergency RIGHT LEG PAIN DUE TO FALL | | Strain of unsp musc/tend at lower leg level, right leg, init Aug 22, [address] [address] [facility] [place] Emergency Other usp (current) drug therapy Upper | | abdominal pain, unspecified Bariatric surgery status Allergy status to oth | | drug/meds/biol subst status Noninfective gastroenteritis and colitis, unspecified | | Obesity, unspecified Anxiety disorder, unspecified residential (current) use of | | aspirin Allergy status to penicillin Personal history of pulmonary embolism | | Recent Inpatient Visit SummaryNo recorded inpatient visits. Care TeamProvider Specialty | | Phone Fax Service Dates Eagle Nino CHW Community Health Worker | | Jul 03, 2019 - Current JONES DAVISON D.M.D. Dentist: Dental Appliance Mechanic ([id number]) | | [phone] May 23, 2019 - Current Rob Tilley Machinist 2Nd Shift/Care | | Coordinator Mar 27, 2018 - Current Bernard Cardenas MD Internal Medicine: | | Pulmonary Disease Aug 23, 2018 - Current [facility] patient has registered | | at the [facility] Emergency Department For more information | | visit: [email or web address] | | PLEASE NOTE: 1. Any care [...] completeness of information | | provided.? 2020 [employer]. - [email or web address] | | Allergy status to oth drug/meds/biol subst status | | Other rn long term care (current) drug therapy | | Allergy status to penicillin | | | |Jun 19, 2019 [facility] [place] | | residential (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 | | Prsnl [...] | | | |Jun 01, 2019 [facility] [place] 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 [place] Emergency | | Anxiety disorder, unspecified | | Acute embolism and thrombosis of deep veins of r up extrem | | Allergy status to penicillin | | Other usp (current) drug therapy | | Pain in right arm | | residential (current) use of aspirin | | Allergy status to oth drug/meds/biol subst status | | | |May 20, 2019 [facility] 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 [place] Emergency | | RIGHT LEG PAIN DUE TO FALL | | Strain of unsp musc/tend at lower leg level, right leg, init | | | |Aug 22, 2018 [facility] [place] Emergency | | Other rn long term care (current) drug therapy | | Upper abdominal pain, unspecified | | Bariatric surgery status | | Allergy status to oth drug/meds/biol subst status | | Noninfective gastroenteritis and colitis, unspecified | | Obesity, unspecified | | Anxiety disorder, unspecified | | residential (current) use of aspirin | | Allergy status to penicillin | | Personal history of pulmonary embolism | | | | | | | |Recent Inpatient Visit Summary | |No recorded inpatient visits. | | | |Care Team | |Provider Specialty Phone Fax Service Dates | |Eagle Nino CHW Community Health Worker Jul 03, 2019 - Current | |JONES DAVISON D.M.D. Dentist: Dental Appliance Mechanic May 23, 2 019 - Current | |Rob Tilley Machinist 2Nd Shift/Pond Tender Mar 27, 2018 - Current | |Bernard Cardenas MD Internal Medicine: Pulmonary Disease Aug 23, 2018 - Current | | | |[facility] Portal | |This patient has registered at the [facility] [place] Emergency Departmen t | |For more information visit: [email or web address] | |PLEASE NOTE: | | 1. Any [...] information provided. | | | |? 2020 [employer]. - [email or web address] | + + + + + + + | Performing | Address | City/State/Zipcode | Phone Number | | Organization | | | | + + + + + | [employer] | [address] | [place], [place] | [phone] | | [employer] | [address] | [address] | | + + + + + [...] + + +---+---+---+ | HYDROmorphone 0.5 mg/mL PATIENT BILLER | Rate/Dos | 08/20/19 | | | | | (ADULT STANDARD DOSE) in 0.9 % | e Verify | 20 4:12 | | | | | NaCl PATIENT BILLER Dose: 0.2 mg, Lockout | | AM [...] ONCE, 1 dose, [facility] 08/18/19 at 1530 | | PM PST [...] | | | | First dose on [facility] 08/18/19 at | | PM PST | [...] | | | oral, ONCE, 1 dose, [facility] 08/20/19 | | PM PST | [...] | | | oral, ONCE, 1 dose, [place] 08/21/19 | | PM PST | | [...] tablet 1 dose, | | | Starting [facility] 08/18/19 at 1853, | | | Until [facility] 08/18/19 at 1915 | | + +---+ | | | + +---+ + +-------+ +-------+---+---+ | PARoxetine (PAXIL) tablet 40 mg | Given | 08/22/19 | 40 mg | | | | 40 mg, oral, AT BEDTIME, First | | 20 8:26 | | | | | dose on [facility] 08/18/19 at 2200, | | PM PST [...]
--- OUTSIDE RECORDS SUMMARY | ~2020-03-23 | XMS | Encounter Summary ---
Demographics + + + | Address | [address] | | | [place] [address] | + + + | Home Phone [...] [place], [place] | | | | | [address] | | + + + + + | Ellie Vang | ECON | Unknown | | + + + + + Care Team Providers + +------+ + | Care Block Bolter Mule Operator Name | Role | Phone | [...] | [address] | Ave [place], [place] | | | | | for Health and | [address] | | | | | [facility] | | | | | | [place], [place] | | | | | | [address] | | | | | | | [...] | | 2019 | sherrill | | PANEL ASSEMBLER [address] | | | | | | [place], [place] | | | | | | [address] | | | | | | [phone] | | | | | | | | +--------+ + + + + documented as of this encounter Visit Diagnoses Not on filedocumented in this encounter"
--- OUTSIDE RECORDS SUMMARY | ~2020-03-23 | XMS | Encounter Summary ---
Demographics + + + | Address | [address] | | | [place] [address] | + + + | Home Phone [...] Providers + +------+ + | Care Wind Site Manager Name | Role | Phone | + +------+ + PCP | Unavailable | + +------+ + Encounter Details +--------+ + + + + | Date | Type | Department | Care Team | Description | +--------+ + + + + | 12/13/ | Hospital | [facility] | Erich Wells | | | 2003 | Encounter | MED CTR SLEEP | MD Michael [address] | | | | | KIT CARSON [address] | [address] [facility] | | | | | [place], [place] | [place] [address] | | | | | [address] | [phone] | | | | | [phone] | | | +--------+ + + + [...] RICHEY | | | | | | [place] [address] | | | | | | [phone] | | | | | | | | +--------+ + + + + | 04/18/ | Procedure | Neurology | Camille De La Paz, | | | 2019 | visit | | MD Saumya MOE | | | | | | [address] | | | | | | [place] [address] | | | | | | [phone] | | | | | | | | +--------+ + + + + documented as of this encounter Visit Diagnoses Not on filedocumented in this encounter"
--- OUTSIDE RECORDS SUMMARY | ~2020-03-23 | XMS | Encounter Summary ---
Demographics + + + | Address | [address] | | | [place] [address] | + + + | Home Phone [...] + | Katalina Padilla | ECON | [address] | | | | | [place], [place] | | | | | [address] | | + + + + + | Ellie Vang | ECON | Unknown | | + + + + + Care Team Providers + +------+ + | Care Plasma Processing Centrifuge Operator Name | Role | Phone | + +------+ + | Fadi Goodrich DO | PCP | | + +------+ + Encounter Details +--------+ + + + + | Date | Type | Department | Care Team | Description | +--------+ + + + + | 12/05/ | Abstract | Cardiology | Randell Franks, | | | 2016 | | Preventive at [facility] | MD [address] | | | | | [address] | [place], [place] | | | | | [facility] | [address] | | | | | and [place], | [phone] | | | | | [address] | | | | | | [facility] [place] | | | | | | [address] | | | | | | [phone] | | | +--------+ + + + [...] | | 2020 | cheduhipolito | | RUBBER FLAP TUBER MACHINE OPERATOR [address] | | | | | | [place], [place] | | | | | | [address] | | | | | | [phone] | | | | | | | | +--------+ + + + + documented as of this encounter Visit Diagnoses Not on filedocumented in this encounter"
--- OUTSIDE RECORDS SUMMARY | ~2020-03-23 | XMS | Encounter Summary ---
Demographics + + + | Address | [address] | | | [place] [address] | + + + | Home Phone [...] [place], [place] | | | | | [address] | | + + + + + | Ellie Vang | ECON | Unknown | | + + + + + Care Team Providers + +------+ + | Care Automobile Drivers Name | Role | Phone | + +------+ + | Fadi Goodrich DO | PCP | | + +------+ + Encounter Details +--------+ + + + + | Date | Type | Department | Care Team | Description | +--------+ + + + + | 02/15/ | Abstract | Digestive Health | Hernandez Brian, | | | 2012 | | [place] [address] | [address] [facility] | | | | | [address] [facility] | [facility] | | | | | for [facility] and | [place], [place] | | | | | [facility] 2 | [address] | | | | | [place], [place] | [phone] | | | | | [address] | | | | | | [phone] | | | +--------+ + + + [...] | | 2019 | sherrill | | SPEED READING TEACHER [address] | | | | | | [place], [place] | | | | | | [address] | | | | | | [phone] | | | | | | | | +--------+ + + + + documented as of this encounter Visit Diagnoses Not on filedocumented in this encounter"
--- OUTSIDE RECORDS SUMMARY | ~2020-03-23 | XMS | Encounter Summary ---
Demographics + + + | Address | [address] | | | [place] [address] | + + + | Home Phone [...] + | Katalina Padilla | ECON | [address] | | | | | [place], [place] | | | | | [address] | | + + + + + | Ellie Vang | ECON | Unknown | | + + + + + Care Team Providers + +------+ + | Care Patient Sitter Name | Role | Phone | + +------+ + | Fadi Goodrich DO | PCP | | + +------+ + Encounter Details +--------+ + + + + | Date | Type | Department | Care Team | Description | +--------+ + + + + | 11/04/ | Telephone | [facility] | Leslie Mistry, | | | 2017 | | [address] | PhD [address] [facility] | | | | | [facility] | [facility] | | | | | and Healing, | [place], [place] | | | | | [facility] | [address] | | | | | Floor [place], [place] | [phone] | | | | | [address] | | | | | | [phone] | | | +--------+ + + + [...] Name: Elzbieta Cristina : 1975 Medical Record: [id number] Age: 42 y.o. Weight on 10/30/17: 394 [...] the phone. Leslie Mistry, PhD Clinical Psychologist [facility] [address] [facility], 15th Floor [place] [id number] [phone] signed by Leslie Mistry, PhD at 11/04/2017 9:50 AM PDTdocume nted in this encounter Plan of Treatment +--------+ + + + + | Date | Type | Specialty | Care Team | Description | +--------+ + + + + | 04/04/ | Telephone-S | Surgery | Orquidea Cristobal, | | | 2019 | chesteve | | CUSTOMER COMPLAINT SERVICE SUPERVISOR [address] | | | | | | [place], [place] | | | | | | [address] | | | | | | [phone] | | | | | | | | +--------+ + + + + documented as of this encounter Visit Diagnoses Not on filedocumented in this encounter"
--- OUTSIDE RECORDS SUMMARY | ~2020-03-23 | XMS | Encounter Summary ---
Demographics + + + | Address | [address] | | | [place] [address] | + + + | Home Phone [...] [place], [place] | | | | | [address] | | + + + + + [...] | [address] | MD Jodie,PhD [address] | | | | | [facility] | [address] | | | | | Hospital Admitting | [place], [place] | | | | | Desk Located on the | [address] | | | | | 9th floor | [phone] | | | | | [place], [place] | | | | | | [address] | Jason Balbuena | | | | | | MD [address] | | | | | | [address] | | | | | | [place], [place] | | | | | | [address] | | | | | | [phone] | | | | | | | [...] encounter OR Notes Anesthesia Postprocedure Evaluation - Gadiel Hartman CRNA - 03/01/2018 7:21 PM PDTF ormatting of this note might be different from the original. Elzbieta Cristina [id number] Allergies Allergen Reactions Amoxicillin Benadrilina [Diphenhydramine Hcl] Hives Parlodel [Bromocriptine] Unknown Blood clots Penicillin Hives Past Surgical History Procedure Laterality Date Tonsillectomy and adenoidectomy Appendectomy, open 2010 Umbilical hernia repair 2010 Treatment of ankle fracture with screws remaining Incision and drainage of wound abscess x2 midline transverse wound s/p open appendectomy 2010 Ventral hernia repair 10/2012 Dr. Andie Brian Incisional hernia repair 03/01/2015 [facility]/ Dr. Cantu. Primary fascial closure and scar excision Temp: 36.5 C (97.7 F) Heart Rate: 77 Resp: 16 BP: 141/76 SpO2: 98 % Evaluation Patient personally seen and evaluated for recovery from anesthesia care, ROS including Card s, Resp, Neuro, and GI w/o evidence of adverse effects, VS (BP, HR, RR, SpO2, and Temp) and hydration status are stable no PONV Pain controlled No Altered mental status Complications No adverse events nesthesia Pro cedure Notes - Jason Balbuena MD - 03/01/2018 9:42 AM PDTAssociated Order(s): ANE E TTProcedure Reason for Intubation: For surgical procedure, Location Performed: [place] , Patient was preoxyg enated Mask Ventilation Grade 2 - Ventilated by mask with oral airway/adjuvant Intubation Blade type: Mario , Blade size: 3, Intubation adjuncts: Ramp , Laryngoscopic view: Grad e II, Fiberoptics used: N/A , Number of Attempts: 1, Positive for EtCO2: Yes, Breath sounds: Bilateral and equal ETT Ett Adult: Single-lumen cuffed ETT Size: 7 ETT secured with: adhesive tape Depth at Lip: 24 Cm Narrative Attending physically present Performed by Resident nesthesia Pr eprocedure Evaluation - Jason Balbuena MD - 03/01/2018 6:14 AM PDTFormatting of thi s note might be different from the original. Elzbieta Cristina [id number] Allergies Allergen Reactions Amoxicillin Benadrilina [Diphenhydramine Hcl] Hives Parlodel [Bromocriptine] Unknown Blood clots Penicillin Hives NPO: Last Vitals: Preg Status/LMP: Patient Active Problem List Diagnosis Hernia Severe [...] Hyperlipidemia Ventral hernia without obstruction or gangrene Past Surgical History Procedure Laterality Date Tonsillectomy and adenoidectomy Appendectomy, open 2010 Umbilical hernia repair 2010 Treatment of ankle fracture with screws remaining Incision and drainage of wound abscess x2 midline transverse wound s/p open appendectomy 2010 Ventral hernia repair 10/2012 Dr. Andie Brian Incisional hernia repair 03/01/2015 [facility]/ Dr. Cantu. Primary fascial closure and scar excision Current Medication List Name Sig Last Dose ACETAMINOPHEN 325 MG TABLET Take 2 tablets by mouth every six hours as needed for pain. Cut tablet into small pieces. Do not crush. ALPRAZOLAM 1 MG TABLET Take 1 mg by mouth three times daily as needed for anxiety. 7/30/201 8 ASCORBIC ACID (VITAMIN C) 500 MG TABLET Take 500 mg by mouth once daily. 11/20/2017 ASPIRIN 81 MG TABLET,DELAYED RELEASE Take 81 mg by mouth once daily. 02/22/2018 ATENOLOL 25 MG TABLET Take 25 mg by mouth two times daily. 11/20/2017 CALCIUM [id number]-GENIS ORAL Take 2 tablets by mouth two times daily. 11/20/2017 ENOXAPARIN 40 MG/0.4 ML SUBCUTANEOUS SYRINGE Inject 0.4 mL under the skin (SUBCUTANEOUSLY) two times daily for 14 days. ERGOCALCIFEROL (VITAMIN D2) 50,000 UNIT CAPSULE Take 50,000 Units by mouth twice weekly (on Thursday and ). Within last 7 days FLUOXETINE 20 MG TABLET Take 60 mg by mouth once daily at bedtime. 02/22/2018 GABAPENTIN 300 MG CAPSULE Take 300 mg by mouth four times daily. 02/22/2018 GLYCERIN (ADULT) RECTAL SUPPOSITORY Unwrap and insert 1 suppository rectally once daily as needed for constipation. MAGNESIUM OXIDE 400 MG TABLET Take 400 mg by mouth once daily. 11/19/2017 METFORMIN 1,000 MG TABLET Take 1,000 mg by mouth two times daily. 11/20/2017 NOVOLIN N NPH U-100 INSULIN ISOPHANE 100 UNIT/ML SUBCUTANEOUS SUSP Inject under the skin (S UBC) three times daily with meals. 11/20/2017 OLANZAPINE 15 MG TABLET Take 30 mg by mouth once daily at bedtime. 11/19/2017 OMEPRAZOLE 20 MG CAPSULE,DELAYED RELEASE Take 1 capsule by mouth once daily in the morning. Open the capsule and mix into sugar-free liquid or yogurt. ONDANSETRON 4 MG DISINTEGRATING TABLET Dissolve 1 tablet on tongue and swallow every six ho urs as needed for nausea/vomiting. OXYCODONE 5 MG TABLET Take 1 tablet by mouth every three hours as needed (Pain). Indication s: Pain Not Taking PHENTERMINE 37.5 MG TABLET TAKE ONE TABLET BY MOUTH ONCE DAILY IN THE MORNING BEFORE BREAKF AST POLYETHYLENE GLYCOL 3350 17 GRAM/DOSE ORAL POWDER Dissolve 17g (1 capful) into 4 ounces of liquid and drink once daily as needed for constipation. POTASSIUM CHLORIDE ER 20 MEQ TABLET,EXTENDED RELEASE(PART/CRYST) Take 2 tablets by mouth tw o times daily. 11/20/2017 SIMETHICONE 80 MG CHEWABLE TABLET Chew and swallow 1 tablet four times daily as needed for gas/bloating. SODIUM FLUORIDE 1.1 % DENTAL CREAM Place onto the teeth. Use to brush teeth 2 to 3 times d aily as directed. Do not eat drink or rinse mouth immediately following use. Do not swallow 11/20/2017 THYROID (PORK) 30 MG TABLET Take 30 mg by mouth once daily. 02/22/2018 TOPIRAMATE 200 MG TABLET Take 50 mg by mouth two times daily. Indications: Migraine Prevent ion 02/22/2018 TORSEMIDE 100 MG TABLET Take 100 mg by mouth two times daily. 02/22/2018 TRAZODONE 150 MG TABLET Take 150 mg by mouth once daily at bedtime. 11/19/2017 TRESIBA FLEXTOUCH U-100 INSULIN 100 UNIT/ML (3 ML) SUBCUTANEOUS PEN Inject 67 Units under t he skin (SUBC) once daily at bedtime. 02/21/2018 URSODIOL 300 MG CAPSULE Take 1 capsule by mouth two times daily. Start taking two weeks aft er your surgery. Lab Results Component Value Date RATE 110 02/22/2018 ATRIALRATE 110 02/22/2018 NH 170 02/22/2018 QRS 98 02/22/2018 QT 339 02/22/2018 QTC 475 11/06/2012 PAXIS 44 02/22/2018 RAXIS -54 02/22/2018 TAXIS 14 02/22/2018 EKGDX 11/06/2012 Normal sinus rhythm Normal ECG "I have personally interpreted this report, either alone or with a trainee." Confirmed by CARINA SMITH ([id number]) on 11/06/2012 3:29:04 PM Preoperative Adult Anesthesia Plan No anesthesia note exists Anesthesia Plan Comments ASA ASA 3 NPO Status NPO Status: NPO by protocol Monitors/Lines to be used Standard Anesthetic Consideration PONV prophylaxis, Premeds, Decadron, IV when asleep and Preop antibiotics Induction intravenous induction Anesthetic Technique General; Obstetric Anesthesia Post-Op Pain Plan IV analgesics and Orals; Blood Products T and S; Informed Consent PARQ discussed with: patient, Procedures, Alternatives, Risks, and Questions discussed and Risk/benefit of anesthesia plan and blood product discussed Dental Risk discussed with patient Code status in OR Patients Code Status in OR: FULL 03/01 6:14 AM documented in this encounter Miscellaneous Notes PMC/ANE PreOp Note - Jason Balbuena MD - 03/01/2018 6:13 AM PDTROS: HPI: Morbid obesity, with HF, HTN, hx of DVTs and PE, AMARA on CPAP Pulmonary: Within Defined Limits except as noted below Dx of sleep apnea Uses BiPap/CPAP Risk factors for sleep apnea: Pt. being treated for high blood pressure BMI>35 and Neck circumference> 4 0 cm pt. at high risk of AMARA Cardiovascular: Functional Capacity: Low hypertension well controlled no pacemaker/ICD GI/Hepatic: GERD Control: Well controlled Neuro/Psych: pain Current pain score: 7 Chronic Pain Physical Exam General: Appearance: No distress, Age appropriate and Crying LOC: Alert HEENT: Normocephalic/Atraumatic, Normal sclerae/conjunctivae and PERRL Airway: Dentition: dentition is normal Mallampati: 1 Mouth Opening: > 3 cm TM Distance:> 6 cm Kwon: No C-Spine ROM: Normal Neck Anatomy: Thick, obese Jaw Protrusion: Normal (lower incisors go above upper incisors) Pulmonary: Respiratory: pulmonary exam normal Breath Sounds: breath sounds normal Cardiovascular: Rhythm: Regular Rate: Normal documented in t his encounter Plan of Treatment +--------+ + + + + | Date | Type | Specialty | Care Team | Description | +--------+ + + + + | 04/04/ | Telephone-S | Surgery | Orquidea Cristobal, | | | 2020 | cheduled | | BEHAVIOR THERAPIST [address] | | | | | | [place], [place] | | | | | | [address] | | | | | | [phone] | | | | | | | [...]
--- OUTSIDE RECORDS SUMMARY | ~2020-03-23 | XMS | Encounter Summary ---
Demographics + + + | Address | [address] | | | [place] [address] | + + + | Home Phone [...] [place], [place] | | | | | [address] | | + + + + + | Ellie Vang | ECON | Unknown | | + + + + + Care Team Providers + +------+ + | Care Rental Boats Caretaker Name | Role | Phone | + [...] 2017 | | [address] | [address] | Y GASTRIC BYPASS | | | | [facility] | [place], [place] | | | | | Hospital Admitting | [address] | | | | | Desk Located on the | [phone] | | | | | 9th floor | | | | | | [place], [place] | | | | | | [address] | | | +--------+---------+ + + + [...] Gavin ACNP - 03/03/2018 9:49 AM PDT [facility] RED SURGERY INPATIENT DISCHARGE SUMMARY Author: KAIN [...] to a bariatric full liquid diets. Our [facility] dietitian was consulted and they [...] at minimum. 5. Follow with PCP for Operations Asst within 1 - 2 weeks of discharge [...] mg by mouth two times daily. CALCIUM [id number]-GENIS ORAL Take 2 tablets by mouth two [...] yogurt or kefir. Nikko's Yogurt or Kefir, TYSON Securityyfield Yogurt, and Chioban i Solomon Islander Yogurt are common brands with beneficial probiotics. [...] are available over the counter at most [facility] stores. Nausea/Vomiting/Difficulty Swallowing Nausea/Vomiting/Difficulty swallowing: Could be [...] hours per your instructions. Some medications, like [place], have Tylenol in it. Make sure you [...] hours by calling the surgery office at [phone]. - After hours, weekends and holidays, you may call the hospital leaf sucker operator at [phone] an d have the early childhood education instructor Red Surgery Team paged. OTHER [...] at minimum. 5. Follow with PCP for Operations Asst within 1 - 2 weeks of discharge [...] Dione Andre Digest[facility] at [facility] 6th Floor [phone] FO OD AND NUT 03/10/2018 3:05 PM Ronna Clarke [facility] at [facility] 6th Floor [phone] Dig Health 04/01/2018 10:30 AM Dione Rubipsey Digestive [facility] at [facility] 6th Floor [phone] FO OD AND NUT 04/01/2018 11:00 AM Bertha Castanon [facility] at [facility] 6th Floor [phone] Dig Health 05/27/2018 2:30 PM Dione Rubipsey Digestive [facility] at [facility] 6th Floor [phone] FO OD AND NUT 05/27/2018 3:05 PM Ronna Valadezughn [facility] at [facility] 6th Floor [phone] Dig Health 05/27/2018 4:30 PM Demar [facility] at [facility] 15th Floor [phone] Comprehensiv 06/04/2018 10:35 AM Randell Franks Cardiology Preventive at [facility] [phone] Cardiology Discharging Physician: KAIN Agee Attending Physician: Bertha Castanon MD [facility] Red Surgery Pager# [phone] 9:50 AM 03/03/2018 documented in this enco [...] | | 0 | | | | [id number]-GEN | mouth two times | | | [...] date of discharge 03/03/18 PARTHA Calixto MS3 [facility] [employer] Demarcus Menon MD [...] for care ride home (pt lives in [place]) Demarcus Alas M.D. General Surgery Resident PGY-1 Pager: [phone] Bertha Ferrari MD - 10:00 AM PDTI [...] with the procedure today. Charo Shelley MD [facility] [address]A [address] [facility] [id number] [place] [address] documented in this en counter Procedure Notes Bertha Castanon MD - 03/01/2018 11:21 AM PDTAssociated Order(s): LAPAROSCOPIC GASTRIC BYPA SS AND NSIH-EN-Y GASTROENTEROSTOMY WITH NISH LIMB 150 CM OR LESS; EGD (ESOPHAGOGASTRODUODENO SCOPY)Procedure(s): LAPAROSCOPIC GASTRIC BYPASS AND NISH-EN-Y GASTROENTEROSTOMY WITH NISH LI MB 150 CM OR LESS; EGD (ESOPHAGOGASTRODUODENOSCOPY)Pre-Procedure Diagnose(s): Morbid obesity due to excess calories (HCC)Post-Procedure Diagnose(s): Morbid obesity due to excess calori es (HCC)Date of Procedure: 03/01/18 Primary Surgeon: Bertha Castanon MD Co Surgeon welding machine operator helper arc: Eldon Gonzalez MD, Chief Resident Alexx Irwin [...] The jejunum was divided with 60 mm [place] stapler with white load and the distal staple line was marke d with silk suture. The mesentery was divided with harmonic ultrasonic device. The distal jejunum was measure to 150 cm. A stay-suture was placed at this location to the proximal di vided staple line (biliopancreatic limb). Enterotomies were created in each limb and a 60mm [place] stapler with white load was fired to create a rzoa-bd-wjgs jejunojejunostomy. The anastamosis was confirmed to be widely patent and hemostatic. The common enterotomy was michael sed by placing 2 stay sutures along the enterotomy for retraction and firing an [place] 60mm stapler with white load across the [...] the lesser sac was entered. The 60mm [place] s tapler with blue load was placed [...] blue load of the 60mm stapler. The [place] was then fired longitudinally towards the angle of His to create the gastric pouch, leaving the gastrotomy from foreign body remov al, on the pouch. Dissection was performed retrogastric to connect posterior and anterior d issection planes and ensure adequate fundus exclusion. Additional fires of the [place] stap ler were performed with blue loads [...] ooze were controlled with 5 mm clip software sales consultant. A 25mm Orvil was passed transorally by [...] The jejunal enterotomy was closed with 60mm [place] stapler with a w demarcus load. Medially [...] and Dr. Wagner was present as my real estate administrative assistant for th e entire procedure, given the technically challenging nature of this procedure. She assisted in all critical steps of the procedure. Dr. Gonzalez was present for endoscopy at the end of the procedure. Bertha Castanon MD, FACS, [facility] Bariatric Surgery documented in this en [...] Curre nt diabetic managed is provided by Operations Asst Dr. Franks. She is s/p Laparoscopic gas [...] of 70 and over in adult ([facility]) Myalgia and myositis Nausea Neck pain Numbness Osteoarthritis of knee Palpitations Pneumonia Shortness of breath Staphylococcal infection Stroke ([facility]) TIA (transient ischemic attack) [...] Andie Brian Incisional hernia repair 03/01/2015 [facility]/ Dr. Cantu. Primary fascial closure and scar excision Outpatient Medications Prior to Admission Medications Prescriptions ALPRAZolam 1 mg oral tablet Sig: Take 1 mg by mouth three times daily as needed for anxiety. CALCIUM CRB&[id number]-Y9-[id number]-GENIS ORAL Sig: Take 2 tablets by mouth [...] History Narrative Updated 11/09/15 She lives in [place] with her mother and her sister (also her caregiver) lives in an apa rtment/duplex below. She has 2 grandchildren (age 4 and 7) who live with her daughter and son-in-law Her boyfriend lives in [place] HFpEF, DM2, HTN, Sleep Apnea (unable to tolerate CPAP), Hypothyroidism, Severe [facility] ([facility]) Last seen [...] program here and refer her to our youth services specialist who also has expertise in [...] T2DM. Current diabetic managed is provided by Operations Asst Dr. Franks. Her home brittany men includes [...] at minimum. 4. Follow with PCP for Operations Asst within 1 - 2 weeks of discharge [...] August & Fellow Myke Bergeron. Kaylee Ferguson [facility] Endocrinology, Diabetes, & Clinical Nutrition Pager [phone] aylee Ferguson A [facility] - 03/02/2018 8:13 AM PDTFormatting of [...] Curre nt diabetic managed is provided by Operations Asst Dr. Franks. She is s/p Laparoscopic gas [...] Andie Brian Incisional hernia repair 03/01/2015 [facility]/ Dr. Cantu. Primary fascial closure and scar excision Outpatient Medications Prior to Admission Medications Prescriptions ALPRAZolam 1 mg oral tablet Sig: Take 1 mg by mouth three times daily as needed for anxiety. CALCIUM CRB&RWB-I4-YUO76-GENIS ORAL Sig: Take 2 tablets by mouth [...] History Narrative Updated 11/09/15 She lives in [place] with her mother and her sister (also her caregiver) lives in an apa rtment/duplex below. She has 2 grandchildren (age 4 and 7) who live with her daughter and son-in-law Her boyfriend lives in [place] HFpEF, DM2, HTN, Sleep Apnea (unable to tolerate CPAP), Hypothyroidism, Severe Obesity ([facility] max weight 495 lbs) Last [...] program here and refer her to our youth services specialist who also has expertise in [...] T2DM. Current diabetic managed is provided by Operations Asst Dr. Franks. Her home brittany men includes [...] recommendations will follow closer to discharge [facility] Endocrinology, Diabetes, & Clinical Nutrition Pager [phone] I spent 25 minutes in the care [...] Curre nt diabetic managed is provided by Operations Asst Dr. Franks. She is s/p Laparoscopic gas [...] Andie Brian Incisional hernia repair 03/01/2015 [facility]/ Dr. Cantu. Primary fascial closure and scar excision Outpatient Medications Prior to Admission Medications Prescriptions ALPRAZolam 1 mg oral tablet Sig: Take 1 mg by mouth three times daily as needed for anxiety. CALCIUM CRB&ZLE-L7-[id number]-GENIS ORAL Sig: Take 2 tablets by mouth [...] History Narrative Updated 11/09/15 She lives in [place] with her mother and her sister (also her caregiver) lives in an apa rtment/duplex below. She has 2 grandchildren (age 4 and 7) who live with her daughter and son-in-law Her boyfriend lives in [place] HFpEF, DM2, HTN, Sleep Apnea (unable to [...] program here and refer her to our youth services specialist who also has expertise in [...] T2DM. Current diabetic managed is provided by Operations Asst Dr. Franks. Her home brittany men includes [...] monitor. Recommendations: Place on Endotool. Kaylee Ferguson [facility] Endocrinology, Diabetes, & Clinical Nutrition Pager [phone] I spent 40 minutes in the care [...] and when/how to notify the doctor. The voltage tester spoke with her about her changes to her insulin regimen. Patient verbalized understanding. All peripheral lines rem lisbet. Patient voiding, passing flatus and pain adequately managed. All questions answered by nursing staff. Discharge Nurse: CHIRAG HARVEY RN andoff - Daniella Godwin RN - 03/03/2018 6:50 AM PDTNursing Handoff [facility] IP NURSE HANDOFF: Jiang hospital course [...] tanding of education, expect good compliance. Macy LeyvaiHigh Pager #[phone] andoff - Jasmin Godwin RN - 03/02/2018 [...] Pain and nausea managment Arianne - Ra ojse manuel Castaneda RN - 03/01/2018 6:00 PM PDTNursing Handoff [facility] IP NURSE HANDOFF: Jiang hospital course [...] Additional pain medication information: Functional Epidural: N/A JOINT MACHINE OPERATOR: N/A Respiratory: RR: 12, O2 Sat: 100 [...] 106 mL Contact Name: Dimple Contact Number: [phone] Family contacted: Yes Comment Belongings: with family documented in this encounter Plan of Treatment +--------+ + + + + | Date | Type | Specialty | Care Team | Description | +--------+ + + + + | 04/04/ | Telephone-S | Surgery | Orquidea Cristobal, | | | 2020 | cheduled | | ELECTRON GUN INSPECTOR [address] | | | | | | [place], [place] | | | | | | [address] | | | | | | [phone] | | | | | | | [...] POC | | PDT | over, adult ([facility]) | results section. | + +--------+ + + + | CAPILLARY BLOOD | Routin | 03/03/2018 | Morbid obesity | Results for this | | GLUCOSE (NO CHG), | e | 6:28 AM | with BMI of 70 and | procedure are in the | | POC | | PDT | over, adult ([facility]) | results section. | + +--------+ + + + | CAPILLARY BLOOD | Routin | 03/02/2018 | Morbid obesity | Results for this | | GLUCOSE (NO CHG), | e | 9:17 PM | with BMI of 70 and | procedure are in the | | POC | | PDT | over, adult ([facility]) | results section. | + +--------+ + + + | CAPILLARY BLOOD | Routin | 03/02/2018 | Morbid obesity | Results for this | | GLUCOSE (NO CHG), | e | 6:50 PM | with BMI of 70 and | procedure are in the | | POC | | PDT | over, adult ([facility]) | results section. | + +--------+ + + + | CAPILLARY BLOOD | Routin | 03/02/2018 | Morbid obesity | Results for this | | GLUCOSE (NO CHG), | e | 3:46 PM | with BMI of 70 and | procedure are in the | | POC | | PDT | over, adult ([facility]) | results section. | + +--------+ + + + | CAPILLARY BLOOD | Routin | 03/02/2018 | Morbid obesity | Results for this | | GLUCOSE (NO CHG), | e | 2:36 PM | with BMI of 70 and | procedure are in the | | POC | | PDT | over, adult ([facility]) | results section. | + +--------+ + + + | CAPILLARY BLOOD | Routin | 03/02/2018 | Morbid obesity | Results for this | | GLUCOSE (NO CHG), | e | 1:33 PM | with BMI of 70 and | procedure are in the | | POC | | PDT | over, adult ([facility]) | results section. | + +--------+ + + + | CAPILLARY BLOOD | Routin | 03/02/2018 | Morbid obesity | Results for this | | GLUCOSE (NO CHG), | e | 11:36 AM | with BMI of 70 and | procedure are in the | | POC | | PDT | over, adult ([facility]) | results section. | + +--------+ + + + | CAPILLARY BLOOD | Routin | 03/02/2018 | Morbid obesity | Results for this | | GLUCOSE (NO CHG), | e | 10:32 AM | with BMI of 70 and | procedure are in the | | POC | | PDT | over, adult ([facility]) | results section. | + +--------+ + + + | CAPILLARY BLOOD | Routin | 03/02/2018 | Morbid obesity | Results for this | | GLUCOSE (NO CHG), | e | 9:23 AM | with BMI of 70 and | procedure are in the | | POC | | PDT | over, adult ([facility]) | results section. | + +--------+ + + + | CAPILLARY BLOOD | Routin | 03/02/2018 | Morbid obesity | Results for this | | GLUCOSE (NO CHG), | e | 8:36 AM | with BMI of 70 and | procedure are in the | | POC | | PDT | over, adult ([facility]) | results section. | + +--------+ + + + | CAPILLARY BLOOD | Routin | 03/02/2018 | Morbid obesity | Results for this | | GLUCOSE (NO CHG), | e | 7:35 AM | with BMI of 70 and | procedure are in the | | POC | | PDT | over, adult ([facility]) | results section. | + +--------+ + + + | CAPILLARY BLOOD | Routin | 03/02/2018 | Morbid obesity | Results for this | | GLUCOSE (NO CHG), | e | 6:33 AM | with BMI of 70 and | procedure are in the | | POC | | PDT | over, adult ([facility]) | results section. | + +--------+ + + + | CAPILLARY BLOOD | Routin | 03/02/2018 | Morbid obesity | Results for this | | GLUCOSE (NO CHG), | e | 5:28 AM | with BMI of 70 and | procedure are in the | | POC | | PDT | over, adult ([facility]) | results section. | + +--------+ + + + | CAPILLARY BLOOD | Routin | 03/02/2018 | Morbid obesity | Results for this | | GLUCOSE (NO CHG), | e | 4:36 AM | with BMI of 70 and | procedure are in the | | POC | | PDT | over, adult ([facility]) | results section. | + +--------+ + + + | CAPILLARY BLOOD | Routin | 03/02/2018 | Morbid obesity | Results for this | | GLUCOSE (NO CHG), | e | 2:46 AM | with BMI of 70 and | procedure are in the | | POC | | PDT | over, adult ([facility]) | results section. | + +--------+ + + + | CAPILLARY BLOOD | Routin | 03/02/2018 | Morbid obesity | Results for this | | GLUCOSE (NO CHG), | e | 12:32 AM | with BMI of 70 and | procedure are in the | | POC | | PDT | over, adult ([facility]) | results section. | + +--------+ + + + | CAPILLARY BLOOD | Routin | 03/01/2018 | Morbid obesity | Results for this | | GLUCOSE (NO CHG), | e | 10:31 PM | with BMI of 70 and | procedure are in the | | POC | | PDT | over, adult ([facility]) | results section. | + +--------+ + + + | CAPILLARY BLOOD | Routin | 03/01/2018 | Morbid obesity | Results for this | | GLUCOSE (NO CHG), | e | 8:21 PM | with BMI of 70 and | procedure are in the | | POC | | PDT | over, adult ([facility]) | results section. | + [...] POC | | PDT | over, adult ([facility]) | results section. | + +--------+ + + + | CAPILLARY BLOOD | Routin | 03/01/2018 | Morbid obesity | Results for this | | GLUCOSE (NO CHG), | e | 3:31 PM | with BMI of 70 and | procedure are in the | | POC | | PDT | over, adult ([facility]) | results section. | + +--------+ + + + | CAPILLARY BLOOD | Routin | 03/01/2018 | Morbid obesity | Results for this | | GLUCOSE (NO CHG), | e | 3:29 PM | with BMI of 70 and | procedure are in the | | POC | | PDT | over, adult ([facility]) | results section. | + +--------+ + + + | CAPILLARY BLOOD | Routin | 03/01/2018 | Morbid obesity | Results for this | | GLUCOSE (NO CHG), | e | 2:30 PM | with BMI of 70 and | procedure are in the | | POC | | PDT | over, adult ([facility]) | results section. | + +--------+ + + + | CAPILLARY BLOOD | Routin | 03/01/2018 | Morbid obesity | Results for this | | GLUCOSE (NO CHG), | e | 1:35 PM | with BMI of 70 and | procedure are in the | | POC | | PDT | over, adult ([facility]) | results section. | + +--------+ + + + | CAPILLARY BLOOD | Routin | 03/01/2018 | Morbid obesity | Results for this | | GLUCOSE (NO CHG), | e | 12:16 PM | with BMI of 70 and | procedure are in the | | POC | | PDT | over, adult ([facility]) | results section. | + [...] MAR[facility] | [address] | [place], [place] | | | [facility] | [address] | [address] | | | TESTS | | | [...] - [facility] | [address] | [place], [place] | | | [facility] | [address] | [address] | | | TESTS | | | [...] + + + | NKECHI AMES | [address] | [place], [place] | | | [facility] | [address] | [address] | | | TESTS | | | [...] [facility] | [address] | [place], [place] | | | [facility] | [address] | [address] | | | TESTS | | | [...] [facility] | [address] | [place], [place] | | | [facility] | [address] | [address] | | | TESTS | | | [...] + + + | NKECHI AMES | [address] | [place], [place] | | | [facility] | [address] | [address] | | | TESTS | | | [...] [facility] | [address] | [place], [place] | | | [facility] | [address] | [address] | | | TESTS | | | [...] [facility] | [address] | [place], [place] | | | [facility] | [address] | [address] | | | TESTS | | | [...] AMES | [address] | [place], [place] | | | [facility] | [address] | [address] | | | TESTS | | | [...] [facility] | [address] | [place], [place] | | | [facility] | [address] | [address] | | | TESTS | | | [...] [facility] | [address] | [place], [place] | | | [facility] | [address] | [address] | | | TESTS | | | [...] AMES | [address] | [place], [place] | | | [facility] | [address] | [address] | | | TESTS | | | [...] [facility] | [address] | [place], [place] | | | [facility] | [address] | [address] | | | TESTS | | | [...] - [facility] | [address] | [place], [place] | | | [facility] | [address] | [address] | | | TESTS | | | [...] AMES | [address] | [place], [place] | | | [facility] | [address] | [address] | | | TESTS | | | [...] MARQU[facility] | [address] | [place], [place] | | | [facility] | [address] | [address] | | | TESTS | | | [...] MARQUAM | [address] | [place], [place] | | | [facility] | [address] | [address] | | | TESTS | | | [...] AMES | [address] | [place], [place] | | | [facility] | [address] | [address] | | | TESTS | | | [...] MARQU[facility] | [address] | [place], [place] | | | [facility] | [address] | [address] | | | TESTS | | | [...] - YAKOVAM | [address] | [place], [place] | | | [facility] | [address] | [address] | | | TESTS | | | [...] (H) | 70 - 99 mg/dL | [facility] - | | | GLUCOSE, | [...] AMES | [address] | [place], [place] | | | [facility] | [address] | [address] | | | TESTS | | | [...] MARQU[facility] | [address] | [place], [place] | | | [facility] | [address] | [address] | | | TESTS | | | [...] - MAR[facility] | [address] | [place], [place] | | | [facility] | [address] | [address] | | | TESTS | | | [...] AMES | [address] | [place], [place] | | | [facility] | [address] | [address] | | | TESTS | | | [...] MAR[facility] | [address] | [place], [place] | | | [facility] | [address] | [address] | | | TESTS | | | [...] + + | NKECHI AMES | [address] [facility] [address] | [place], [place] | | | [facility] | [address] | [address] | | | TESTS | | | | + + + + + EGD (ESOPHAGOGASTRODUODENOSCOPY) (03/01/2018 11:21 AM PDT) + + + | Narrative | Performed At | + + + | Bertha Castanon MD 03/01/2018 12:25 PM Date of Procedure: | | | 03/01/18 Primary Surgeon: Bertha Castanon MD Co Surgeon or | | | real estate administrative assistant: Eldon Gonzalez MD, Chief Resident [...] The jejunum was divided with 60 mm [place] stapler with white | | | load [...] created in each limb and a 60mm [place] stapler | | | with white load was fired to create a vmho-lj-modi | | | jejunojejunostomy. The anastamosis was confirmed to be widely | | | patent and hemostatic. The common enterotomy was closed by placing | | | 2 stay sutures along the enterotomy for retraction and firing an | | | [place] 60mm stapler with white load across the [...] | | | was entered. The 60mm [place] stapler with blue load was placed | [...] blue load of the 60mm stapler. The [place] was then fired | | | longitudinally towards the angle of His to create the gastric pouch, | | | leaving the gastrotomy from foreign body removal, on the pouch. | | | Dissection was performed retrogastric to connect posterior and | | | anterior dissection planes and ensure adequate fundus exclusion. | | | Additional fires of the [place] stapler were performed with blue | | [...] with | | | 5 mm clip software sales consultant. A 25mm Orvil was passed transorally by [...] was closed with 60mm | | | [place] stapler with a white load. Medially and [...] was present | | | as my real estate administrative assistant for the entire procedure, given the technically | | | challenging nature of this procedure. She assisted in all critical | | | steps of the procedure. Dr. Gonzalez was present for endoscopy at the | | | end of the procedure. Bertha Castanon MD, FACS, [facility] MD Co Surgeon or | | | real estate administrative assistant: Eldon Gonzalez MD, Chief Resident [...] The jejunum was divided with 60 mm [place] stapler with white | | | load [...] created in each limb and a 60mm [place] stapler | | | with white load was fired to create a hxdd-mm-cxlc | | | jejunojejunostomy. The anastamosis was confirmed to be widely | | | patent and hemostatic. The common enterotomy was closed by placing | | | 2 stay sutures along the enterotomy for retraction and firing an | | | [place] 60mm stapler with white load across the [...] | | | was entered. The 60mm [place] stapler with blue load was placed | [...] blue load of the 60mm stapler. The [place] was then fired | | | longitudinally towards the angle of His to create the gastric pouch, | | | leaving the gastrotomy from foreign body removal, on the pouch. | | | Dissection was performed retrogastric to connect posterior and | | | anterior dissection planes and ensure adequate fundus exclusion. | | | Additional fires of the [place] stapler were performed with blue | | [...] with | | | 5 mm clip software sales consultant. A 25mm Orvil was passed transorally by [...] was closed with 60mm | | | [place] stapler with a white load. Medially and [...] was present | | | as my real estate administrative assistant for the entire procedure, given the technically | | | challenging nature of this procedure. She assisted in all critical | | | steps of the procedure. Dr. Gonzalez was present for endoscopy at the | | | end of the procedure. Bertha Castanon MD, FACS, [facility] [...] NKECHI AMES | [address] | [place], [place] | | | [facility] | [address] | [address] | | | TESTS | | | [...]
--- OUTSIDE RECORDS SUMMARY | ~2020-03-23 | XMS | Encounter Summary ---
Demographics + + + | Address | [address] | | | [place] [address] | + + + | Home Phone [...] + | Katalina Padilla | ECON | [address] | | | | | [place], [place] | | | | | [address] | | + + + + + | Ellie Vang | ECON | Unknown | | + + + + + Care Team Providers + +------+ + | Care Platen Builder Up Name | Role | Phone | [...] | 2018 | Visit | Center at [facility] [address] | MD [address] | surgery (Primary | | | | [address] | [place], [place] | Dx); History of | | | | for Health and | [address] | Frandy-en-Y gastric | | | | Healing, Building [address] | [phone] | bypass | | | | [place], [place] | | | | | | [address] | | | | | | [phone] | | | +--------+---------+ + + + [...] to the healing stomach. There are also exterminator helper complications of poor wound healing and gastric u lcers. These ulcers are started by smoking or using other nicotine products (vapor cigarett es etc). Gastric bypass patients should also avoid NSAIDS(ibuprofen, advil, motrin, naprosyn/naproxe n/aleve) to prevent gastric/marginal ulcers. Please visit with our Vp Product Management (RD) for instructions about your Bariatric diet, assistance with calorie counts, tips and tricks for working with your diet restrictions, an d recipes after bariatric surgery. Daily yogurt; even just 1 tablespoon twice a day will provide enough probiotics to optimize digestion. Try to use a high-quality, probiotic-dense yogurt (eg Zaria's, Leonides, Stacie reeves Kefir, Distribution Estimator [employer] Yogurt). Remember to chew your food well, [...] protein daily, and 64 oz water daily. Sales And Marketing Intern just changed diet to he lp her [...] vagina Allergic rhinitis Anemia Anxiety Bipolar disorder ([facility]) Chronic wound infection of abdomen Cough Depression Diverticulitis of colon Dizziness Glaucoma Heart burn Hemorrhoids Hernia of abdominal wall Incisional hernia, incarcerated Insomnia Irregular periods Kidney stone Leaking of urine Leg sore Lymphedema Morbid obesity with body mass index of 70 and over in adult ([facility]) Myalgia and myositis Nausea Neck pain Numbness Osteoarthritis of knee Palpitations Pneumonia Shortness of breath Staphylococcal infection Stroke ([facility]) TIA (transient ischemic attack) Tinea corporis UTI [...] by communicating with her mother - Follow Sales And Marketing Intern recommendations to help with nausea (decrease volume, [...] Anisa Dillon MD PGY-1, Red Surgery Pager: [phone] documented in this encounter Plan of Treatment +--------+ + + + + | Date | Type | Specialty | Care Team | Description | +--------+ + + + + | 04/04/ | Telephone-S | Surgery | Orquidea Cristobal, | | | 2020 | cheduled | | RELIEF WORKER [address] | | | | | | [place], [place] | | | | | | [address] | | | | | | [phone] | | | | | | | [...]
--- OUTSIDE RECORDS SUMMARY | ~2020-03-23 | XMS | Encounter Summary ---
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 [address] | SLEEP | | | | | heart | [address] | DISORDERS LAB | | | | | failure | [address] | [address] | | | | | (HCC) | [place] | [address] | | | | | History of | [address] | [place], [place] | | | | | sinus | Phone: | [phone] | | | | | tachycardia | [phone] | Phone: | | | | | History of | Fax: | [phone] | | | | | bariatric | [phone] | Fax: | | | | | surgery | | [phone] | | | | | Sleep apnea [...] + + | 04/28/ | Office | [facility] | Sulema Altamirano | Chronic diastolic | | 2019 | Visit | CARDIOLOGY [place] | [address] | heart failure (HCC) | | | | [address] | [place] | (Primary Dx); | | | | [address] | [place] [address] | History of sinus | | | | [place], [place] | [phone] | tachycardia; History | | | | [address] | | of stroke; HTN, | | | | [phone] | | goal below 130/80; | | [...] have referred you to Dr. Rascon at [facility] , call [phone] for an appointment next week I made [...] dysfunction with previous dysfunctional RV treated at [facility] with diuresis and hospitalization for one month., sleep apnea treated with BiPAP, t ype II diabetes, hypothyroidism, morbid obesity with alveolar hypoventilation, Frandy-en-Y ga stric bypass surgery 02/2018, osteoarthritis,DVT and PE 2016, hypokalemia and hyperuricemia which is being followed by irrigating pump operator Dr. Fu, and SELINA Escobar. Her current [...] hernias, and will be seeing a surgeon seven t [facility] on May 05. In the meantime she has had difficulty with dehydration and keeping f ood down, and she receives IV fluids through PICC line 3 times per week and has also been tr eated with Phenergan. Unfortunately her PCP, Dr. Cardenas is still on maternity leave, and she has been seen by o ther providers who are covering for her. She reports today that she never heard from the [place] [facility] providers to her sup posed [...] surgery, and weight down 123 pounds since [facility] 2017 when weighed 394 lbs. She brought [...] hypothyroidism,followed by Dr. Franks, endocrin ologist at [facility]) . Denies excessive thirst or hunger. [...] knee pain and hernia pain Lives in [facility] her mother who smokes. . Sister is ambulatory care nurse. Grandchildren ages 4 and 7 live with he r daughter and son-in-law. Disabled , on disability .01/24/2019: working with [employer] to get her own place. Outpatient Medications [...] film Suboxone 2 mg-0.5 mg sublingual film Tsqmktw-Xwknnzqli-Ararzua D (CITRACAL CALCIUM+D PO) Take 2 tablets [...] Pen Needle (NOVOFINE) 32G X 6 MM [facility] Novofine 32 32 gauge x 1/4" needle [...] monohydrate/macrocrystals 100 m g capsule nystatin (NYSTATIN) 234803 UNIT/GM powder Nyamyc 100,000 unit/gram topical powder [...] Take 30 mg by mouth Daily. thyroid (CHEF SAUCIER THYROID) 30 mg tablet CHEF SAUCIER Thyroid 30 mg tablet TAKE ONE TABLET [...] , and aortic arch normal Echo: 01/02/2016 ([facility]): TDS, cardiac chamber dimensions grossly NML, LVEF >70%, rodriguez tolic function normal for patient. Unable to assess segmental wall motion. RV grossly norm al. Aortic valve sclerotic, no As/AI. Mitral and tricuspid valves grossly normal. Trace T R. No pericardial effusion VASCULAR TESTING AND PROCEDURES Left lower extremity DVT, presumed PE: 10/2015 [place]. treated with heparin drip and Coumadin 10 in hospital, with Coumadin 6 months as outpatient, ASA 81 mg continued Venous US: right leg, 04/28/2016: No evidence of DVT. EKG EKG 10/27: ([facility]) Normal sinus rhythm. Normal EKG. Rate 93 bpm, OR 172 ms, QRS 90 ms, QTC 465 ms personally reviewed by me in the office today) EK02/05: Sinus tachycardia, otherwise normal. Rate 160 bpm, OR 174 ms, QRS 74 ms, QTC 451 ms (personally reviewed by me in the office today and no significant change seen fro m EKG done in October 2016 except for faster heart rate) EK04/26/2018: Normal sinus rhythm, rate 74 bpm, OR 182 ms, QRS 96 ms, QTC 472 ms, tracin g personally reviewed by me, and compared to previous EKG, heart rate is now better controll ed, otherwise similar morphology EK04/28/2019: Normal sinus rhythm, right axis. Rate 74 bpm, OR 170 ms, QRS 88 ms, QTC 45 [...] heard from the sleep providers at the [place] [facility] in [place], so I have referred her again to Dr. Rascon at the [facility] [facility], and she ne eds [...] Placed This Encounter Procedures Ambulatory Referral to [facility] Pulmonology- Sleep study as well ECG 12 [...] past surgical history. Problem list. Maryse MARKS [facility] Cardiology 04/28/2019 Nicole soler in this encounter Plan of [...] | | | | | | [place] [address] | | | | | | [phone] | | | | | | | | +--------+ + + + + | 04/18/ | Procedure | Neurology | Camille De La Paz, | | | 2019 | visit | | [address] | | | | | | [address] | | | | | | [place] [address] | | | | | | [phone] | | | | | | | | +--------+ + + + + + + +--------+ + + | Name | Type | Priori | Associated Diagnoses | Order Schedule | | | | ty | | | + + +--------+ + + | Ambulatory Referral | Outpatient | Routin | Chronic diastolic | Ordered: 04/28/2019 | | to [facility] | Referral | e | heart failure [...] INTERPRETAT | Please refer to | | WAMT MUSE | | | ION TEXT | Providers office visit | | | | | | note for Providers | | | | | | Interpretation.Confirmed | | | | | | by [facility] [place] Read Only, | | | | | | [facility] [place] ([id number]), | | | | | | commercial production editor Glen Alberto | | | | | | ([phone]) on 04/28/2019 | | | | | [...]
--- OUTSIDE RECORDS SUMMARY | ~2020-03-23 | XMS | Encounter Summary ---
Demographics + + + | Address | [address] | | | [place] [address] | + + + | Home Phone [...] + | Katalina aPdilla | ECON | [address] | | | | | [place], [place] | | | | | [address] | | + + + + + | Ellie Vang | ECON | Unknown | | + + + + + Care Team Providers + +------+ + | Care Pot Puncher Name | Role | Phone | + +------+ + | Kenyatta Cardenas MD | PCP | | + +------+ + Reason for Visit +--------+--------+ + | Reason | Onset | Comments | | | Date | | +--------+--------+ + | Pain | 08/18/ | | | | 2020 | | +--------+--------+ + Encounter Details +--------+ + + + + | Date | Type | Department | Care Team | Description | +--------+ + + + + | 08/18/ | Telephone | Digestive Health | Chilo, | Pain | | 2020 | | Center at [facility] [address] | MD [address] | | | | | [facility] | [facility] | | | | | [facility] and | [place], [place] | | | | | [place] [address] | [address] | | | | | [place], [place] | [phone] | | | | | [address] | | | | | | [phone] | | | +--------+ + + + [...] Telephone Encounter - Paulino Hooker RN - 08/18/2019 1:40 [address] PSTDr. Woo spoke with paramedics and patient, advised for patient to go to ED given new symptomatic pain. Con grover signed by Paulino Hooker RN at 08/18/2019 1:40 PM PSTTelephone Encounter - Jacquelin Schmidt - 08/18/2019 1:21 PM PSTParamedic called and needed to speak with someone mihaela maxime pt and what to do with her as [facility] is on devert. Curt RN and spoke with Dr. Woo and advised his of the problem. Dr. Woo spoke with paramedics. elephone Encounter - Jacquelin Schmidt - 08/18/2019 12:18 PM PSTPatient calling regarding symptoms. Have you recently had a procedure no, surgery no or hepatitis C treatment? no Pt has (symptom) Pain and nausea that started on the drive here today for surgery tomorrow. Has patient had Fever? No if yes? What temp Has patient had Nausea? Yes Has patient had Vomiting? Yes Is this new or a change for you? Yes Is this symptom causing you pain?Yes 05/05 Advised caller that they will receive a call back from RN or provider within 3 business day s. Caller understands and is agreeable to this. Ramana RN and was informed to tell the pt to go to ED to get evaluated. Informed pt of that information pt will go to ED. documented in this encounter Plan of Treatment +--------+ + + + + | Date | Type | Specialty | Care Team | Description | +--------+ + + + + | 04/04/ | Telephone-S | Surgery | Orquidea Cristobal, | | | 2020 | chesteve | | VENDING SUPERVISOR [address] | | | | | | [place] | | | | | | [address] | | | | | | [phone] | | | | | | | | +--------+ + + + + documented as of this encounter Visit Diagnoses Not on filedocumented in this encounter"
--- OUTSIDE RECORDS SUMMARY | ~2020-03-23 | XMS | Encounter Summary ---
Demographics + + + | Address | [address] | | | [place] [address] | + + + | Home Phone | | + + + | Preferred Language | Unknown | + + + | Marital Status | | + + + | Cheondoism Affiliation | Unknown | + + + | Race | White | + + + | Ethnic Group | Not or | + + + Author + + + | Author | [facility] | | | and Jeffana | + + + | Organization | [facility] | | [...] Team Providers + +------+ + | Care Photogrammetric Stereo Compiler Name | Role | Phone | + +------+ + PCP | Unavailable | + +------+ + Encounter Details +--------+ + + + + | Date | Type | Department | Care Team | Description | +--------+ + + + + | 03/31/ | Orders Only | [facility] | Dharmesh Escobar, | | | 2016 | | NEPHROLOGY [place] | VETERINARY SURGEON [address] | | | | | [address] | [address] | | | | | [address] [place], [place] | [place] | | | | | [address] | [address] | | | | | [phone] | [phone] | | | | | | | [...] [address] | | | | | | [place] [address] | | | | | | [phone] | | | | | | | | +--------+ + + + + | 04/18/ | Procedure | Neurology | Camille De La Paz, | | | 2019 | visit | | [address] | | | | | | [address] | | | | | | [place] [address] | | | | | | [phone] | | | | | | | [...] + + + + | Non- | 5.11 (A) | 3.8 - 5.1 10 | EXTERNAL | | | Red Blood | | | LAB | | | Cells | | | | | | Counted | | | | | + + + + + + | Hemoglobin | 13.3 | 12.0 - 16.0 | [...] | | | LAB | | | Ecuadorean | | | | | + +---------+ [...]
--- OUTSIDE RECORDS SUMMARY | ~2020-03-23 | XMS | Encounter Summary ---
Demographics + + + | Address | [address] | | | [place] [address] | + + + | Home Phone | | + + + | Preferred Language | Unknown | + + + | Marital Status | | + + + | Taoist Affiliation | Unknown | + + + | Race | White | + + + | Ethnic Group | Not or | + + + Author + + + | Author | [facility] | | | and Jeffana | + + + | Organization | [facility] | | | and [...] Providers + +------+ + | Care Boilermaker Pipe Fitter Name | Role | Phone | + +------+ + | Jorje Hill | PCP | | + +------+ + Encounter Details +--------+ + + + + | Date | Type | Department | Care Team | Description | +--------+ + + + + | 03/21/ | Virtual | [facility] | Camille De La Paz, | Intractable chronic | | 2020 | Office | NEUROLOGY [address] | common migraine | | | Visit | [address] | [address] | without aura | | | | [place], [place] | [place] [address] | (Primary Dx) | | | | [address] | [phone] | | | | | [phone] | | | +--------+ + + + [...] documented as of this encounter Progress Notes Camille De La Paz MD - 03/21/2020 8:35 AM PDTFormatting of this note might be different f rom the original. This exam was initially conducted via a secure 256-bit AES encrypted bidirectional video STEARCLEAR. This visit was converted to virtual visit due to COVID-19 pandemic. Service was provided [id number] with the patient via interactive videoconferencing Video start time 853 am Video end time 911 am Total time (in minutes) 25+ minutes including review of records, face to face time, documen tation including orders and finalizing care plan The patient was presented with information regarding the risks and benefits of telemedicine , given the opportunity to ask questions, and consented to participate in a video visit toda y. The patient confirms they are currently physically located at the permanent address on file . I, Camille De La Paz MD, confirmed this is a state in which I am licensed. Subjective: Patient ID: Elzbieta Cristina is a 45 y.o. female. CC: Intractable headache and migraines. HPI: Please refer to consult note dated 01/24/20 for details of HPI which I have reviewed. Interval changes: Reports no change in headache. She has tried Gabapentin 200mg three times a day She has cut back on topamax to 100mg twice a day Is still on atenolol, paxil and latuda for other health reasons. She has about 4-5 days of migraines (severe) per week. Today is a good day. Current Outpatient Medications: ALPRAZolam (XANAX) 0.5 mg [...] mg daily.), Disp: 30 tablet, Rfl: 11 Qjnmngm-Lwbqaruuc-Esrarnp D (CITRACAL CALCIUM+D PO), Take 4 tablets [...] 324 mg by mouth., Disp: , Rfl: gabapentin (NEURONTIN) 100 mg capsule, Take 1 cap three times a day for a week, then 2 caps three times a day., Disp: 180 capsule, Rfl: 3 lurasidone (LATUDA) 20 mg tablet, Take 40 [...] tablet-2 tablets qhs, Disp : , Rfl: prazosin (MINIPRESS) 2 MG capsule, Take 2 mg by mouth 2 times daily., Disp: , Rfl: rizatriptan (MAXALT-CLIENT CARE CONSULTANT) 5 mg disintegrating tablet, Take 5 mg by mouth as needed for Migraine. May repeat in 2 hours if needed, Disp: , Rfl: spironolactone (ALDACTONE) 50 mg tablet, Take 50 mg by mouth Daily., Disp: , Rfl: thyroid (SLACKMAN THYROID) 30 mg tablet, SLACKMAN Thyroid 30 mg tablet TAKE ONE TABLET BY MOUTH O NCE DAILY, Disp: , Rfl: topiramate (TOPAMAX) 100 mg tablet, Take 100 mg by mouth 2 times daily ., Disp: , Rfl: topiramate (TOPAMAX) 50 MG [...] instructions. EOMI Face symmetric. Movements intact. Impression: Elzbieta is a 44 yo R handed lady from [place], [place] With h/o stroke at age 18, gastric bypas s, hypercoagulable state /DVT on anticoagulation, HTN, diet controlled DM, PCOS, bipolar dis order, anxiety, abdominal hernia s/p repair, h/o 3 abdominal surgeries earlier in 2019, ongo ing sinus infection, h/o AMARA on Bipap Chronic migraine vs tension headache - intractable Bipolar disorder Chronic pain on narcotics Recommendations: I have strongly counseled the patient that [...] the neck, riboflavin 400mg daily may help. She has failed several preventative medications She is already on Atenolol. Another BP medication such as Verapamil would be contraindicate d. Also taking Topamax and antidepressants. Current abortive use No maxalt. No OTC pain medications. Percocet - 4 a day She feels that she is having significant issues with quality of life. More than 15-20 days of severe headaches (migrianes and possible tension type headaches a month) I have discussed about Onabotulinumtoxin A injections for chronic migraines which is FDA ap proved for this condition. Contraindications associated with it including pre-existing neuromuscular conditions such a s ALS, myasthenia gravis, Lambert-Eaton syndrome, peripheral motor neuropathic diseases and known hypersensitivity to botox injection or egg albumin, infection at the injection sites. Risks include spread of toxin effect beyond site of local injection and may include asthen ia, generalized muscle weakness, diplopia, ptosis, dysphagia, dysphonia, dysarthria, urinary incontinence and breathing difficulties which may occur hours to weeks after injection. Ma y also experience hypersensitivity reactions including soft tissue edema, urticaria, serum s ickness, anaphylaxis, dyspnea which may need emergent treatment. Other adverse effects inclu de bleeding or infection at the site, injection-site pain, musculoskeletal pain, myalgia, h ypertension and muscle spasms Reasonable expectations for a patient - Administration is every 12 weeks Several weeks may be required to notice a response In clinical trials, patients experienced 2 treatment cycles to determine effectiveness Fine needles are used for injections, but patients may still experience some discomfort Progress on treatment should be tracked using a headache diary Also discussed about CGRP blockers in detail. Advised to keep a headache log. Patient wishes to continue Gabapentin till above is approved as she wants something to help with the headache Increase Gabapentin by 1 cap every 2 days Max of 300mg tid New prescription will be sent. She also reported kidney stones. I have discussed with her that topamax may be causing this . She has an appt with PCP to discuss this today Will request PA for Botox injections as she is very much interested -Emphasized to the patient, in line with [...] with the recommendations. Return to the clinic for Botox injections, call for any new neurological changes or symptom s or questions. documented in this encounter Plan of Treatment +--------+ + + + + | Date | Type | Specialty | Care Team | Description | +--------+ + + + + | 03/29/ | Office | Cardiology | Sulema Altamirano | | | 2019 | Visit | | [address] | | | | | | [address] | | | | | | [place] [address] | | | | | | [phone] | | | | | | | | +--------+ + + + + | 04/18/ | Procedure | Neurology | Camille De La Paz, | | | 2019 | visit | | [address] | | | | | | [address] | | | | | | [place] [address] | | | | | | [phone] | | | | | | | | +--------+ + + + + documented as of this encounter Visit Diagnoses + + | Diagnosis | + + | Intractable chronic common migraine without aura - Primary | + + documented in this encounter"
--- OUTSIDE RECORDS SUMMARY | ~2020-03-23 | XMS | Encounter Summary ---
Demographics + + + | Address | [address] | | | [place] [address] | + + + | Home Phone [...] + | Katalina Padilla | ECON | [address] | | | | | [place], [place] | | | | | [address] | | + + + + + | Ellie Vang | ECON | Unknown | | + + + + + Care Team Providers + +------+ + | Care Senior Process Control Tech Name | Role | Phone | [...] | | | | | essential | [address] | [address] | | | | | hypertension | [address] | [address] | | | | | Type II or | [address] | [place], [place] | | | | | unspecified | [place], [place] | [address] | | | | | type | [address] | Phone: | | | | | diabetes | Phone: | [phone] | | | | | mellitus | [phone] | Fax: | | | | | without | Fax: | [phone] | | | | | mention of | [phone] | | | | | | complication [...] | | [address] | [place], [place] | (Primary Dx); | | | | [facility] | [address] | Migraine headache | | | | and Healing, | [phone] | | | | | [address] | | | | | | [place], [place] | | | | | | [address] | | | | | | [phone] | | | +--------+---------+ + + + [...] she is hypothyroid and put her on [place] Thyroid hormone replacement therapy. Her heart rate [...] | | 2019 | sherrill | | MEDICAL OFFICE PROFESSIONAL INSTRUCTOR [address] | | | | | | [place], [place] | | | | | | [address] | | | | | | [phone] | | | | | | | [...] [facility] | [address] | [place] [address] | | | SERVICES, SPECIAL | PARK [...]
--- OUTSIDE RECORDS SUMMARY | ~2020-03-23 | XMS | Encounter Summary ---
Demographics + + + | Address | [address] | | | [place] [address] | + + + | Home Phone [...] Providers + +------+ + | Care Dye House Wheel Operator Name | Role | Phone [...] | | | | and over, | [place], [place] | and Healing, | | | | | adult (HCC) | [address] | Building 1, | | | | | Severe | Phone: | 1st Floor | | | | | muscle | | [place], [place] | | | | | deconditioni | Fax: | [address] | | | | | ng | [phone] | Phone: | | | | | Procedures | | [phone] | | | | | PHYSICAL | | Fax: | | | | | THERAPY | | [phone] | | | | | REFERRAL | | | +--------+--------+ + + + + Encounter Details +--------+ + + + + | Date | Type | Department | Care Team | Description | +--------+ + + + + | 02/02/ | Director Of National Sales | Digestive Health | Shereen Georges, | Morbid obesity with | | 2017 | | Center at [facility] [address] | ACNP [address] | BMI of 70 and over, | | | | [address] | Ave [place], [place] | adult (HCC) (Primary | | | | for Health and | [address] | Dx); Severe muscle | | | | Healing, Building 2 | | deconditioning | | | | [place], [place] | | | | | | [address] | | | | | | | [...] | | 2020 | cheduled | | VP SOFTWARE SUPPORT [address] | | | | | | [place], [place] | | | | | | [address] | | | | | | [phone] | | | | | | | [...]
--- OUTSIDE RECORDS SUMMARY | ~2020-03-23 | XMS | Encounter Summary ---
Demographics + + + | Address | [address] | | | [place] [address] | + + + | Home Phone [...] [place], [place] | | | | | [address] | | + + + + + | Ellie Vang | ECON | Unknown | | + + + + + Care Team Providers + +------+ + | Care Communications Equipment Supervisor Name | Role | Phone | [...] | | | | | bypass | [place], | [facility], | | | | | Nausea and | [place] | 10th Floor | | | | | vomiting, | [address] | [place], [place] | | | | | intractabili | Phone: | [address] | | | | | ty of | | Phone: | | | | | vomiting not | Fax: | [phone] | | | | | specified, | [phone] | Fax: | | | | | unspecified | | [phone] | | | | | vomiting | [...] | | | | | | CONTRAST PA | | | | | | | CT SCAN OF | | | | | | | ABDOMEN | | | | | | | CONTRAST PA | | | | | | | [...] | | | | | bypass | [place], | [place] for | | | | | Nausea and | [place] | Health and | | | | | vomiting, | [address] | Healing, | | | | | intractabili | Phone: | Building 1, | | | | | ty of | [phone] | 5th Floor | | | | | vomiting not | Fax: | [place], [place] | | | | | specified, | [phone] | [address] | | | | | unspecified | | Phone: | | | | | vomiting | | [phone] | | | | | type | [...] | | | | | bypass | [place], | [facility] and | | | | | Nausea and | [place] | Healing, | | | | | vomiting, | [address] | Building 2 | | | | | intractabili | Phone: | [place], [place] | | | | | ty of | | [address] | | | | | vomiting not | Fax: | Phone: | | | | | specified, | [phone] | [phone] | | | | | unspecified | | Fax: | | | | | vomiting | | [phone] | | | | | type | [...] | | | | | | | PA UPPER GI | | | | | [...] | [facility] | | | with ONLINE PUBLISHER | | hypertension | [address] | [address] | | | | | Right | [address] | [address] | | | | | heart | [place], [place] | [place] for | | | | | failure | [address] | Health and | | | | | ([facility]) Type | Phone: | Healing, | | | | | 2 diabetes | [phone] | Building 2 | | | | | mellitus | Fax: | [place], [place] | | | | | without | [phone] | [address] | | | | | complication | | Phone: | | | | | , with | | | | | | | long-term | | Fax: | | | | | current use | | [phone] | | | | | of insulin | | | | | | | ([facility]) | | | | | | | [...] | 2019 | Visit | Center at [facility] 3485 | AGACNP [address] | gastric bypass | | | | [address] | Ave [place], [place] | (Primary Dx); Nausea | | | | for Health and | [address] | and vomiting, | | | | Healing, Building 2 | [phone] | intractability of | | | | [facility] [place] | | vomiting not | | | | [address] | | specified, | | | | [...] getting fluids at a local clinic in [place] -I will contact you if further testing is indicated -follow up with once of our surgeons once testing is complete -get some protein de la o--isopure or premier protein de la o. documented in this encounter Progress Notes Melissa Garay RN - 03/01/2019 1:50 PM PDTSpoke with patient's PCP office [phone] and notified them that Infusion unit at [facility] (fax [phone]) requires a provider with privileges there to sign the IV infusion orders. Since Dr. Cardenas is out on maternity leave, SOFI Ulrich will check with provider covering. Infusion order and chart not e faxed to PCP at [phone]. Patient notified. harli Zayas - 03/01/2019 1:50 [...] rhinitis Anemia Anxiety Bipolar disorder ([facility]) Chronic wound infection of abdomen from 2010 Cough Depression Diverticulitis of colon Dizziness Glaucoma Heart burn Hemorrhoids Hernia of abdominal wall Incisional hernia, incarcerated 2012 Insomnia Irregular periods Kidney stone Leaking of urine Leg sore Lymphedema Morbid obesity with body mass index of 70 and over in adult ([facility]) Myalgia and myositis Nausea Neck pain Numbness Osteoarthritis of knee Palpitations Pneumonia Shortness of breath Staphylococcal infection Stroke ([facility]) TIA (transient ischemic attack) due to Bromocriptine Tinea corporis UTI (urinary tract infection) Past Surgical History Procedure Laterality Date Tonsillectomy and adenoidectomy Appendectomy, open 2010 Umbilical hernia repair 2010 Treatment of ankle fracture with screws remaining Incision and drainage of wound abscess x2 midline transverse wound s/p open appendectomy 2010 Ventral hernia repair 10/2012 Dr. Andie Brian Incisional hernia repair 03/01/2015 [facility]/ Dr. Cantu. Primary fascial closure and scar excision Lap gastric byp, and nilesh-en-y gastroenterostomy w/ nilesh limb 150 cm or less 8 PRDr Dannie SR Social History Socioeconomic History Marital [...] file Gets together: Not on file Attends confucianism service: Not on file Active member of club or organization: Not on file Attends meetings of clubs or organizations: Not on file Relationship status: Not on file Other Topics Concern Not on file Social History Narrative Updated 11/09/15 She lives in [place] with her mother and her sister (also her caregiver) [facility] [place]. She has 2 grandchildren (age 4 and 7) who live with her daughter and son-in-law Her boyfriend lives in [place] HFpEF, DM2, HTN, Sleep Apnea (unable to tolerate CPAP), Hypothyroidism, Severe Obesity ([facility] max weight 495 lbs) Last seen [...] program here and refer her to our waste/materials exchange specialist who also has expertise in physical [...] 09/11/2017 She has follow up with Dr Fransk on 11/20/2017 Echocardiogram 11/07/2015 - Final Impressions: [...] buccal film, , Disp: , Rfl: CALCIUM CRB&FIW-B6-KUD27-GENIS ORAL, Take 2 tablets by mouth two [...] iron) oral tablet, Take 1 tablet by de ut once daily., Disp: 90 tablet, Rfl: [...] be administered closer to her home in [place]. LR 1-2 L 3 times weekly, until [...] to plan and will call and/or send [employer] message if any issues. Start time 1422, end time 1455. I spent a total of 33 minutes face to face with this patie nt. Over 50% of visit was in counseling. ALBINA Perrin Bariatric Surgery Nurse Practitioner [facility] | [address] | [place] | [address] | documented in th is encounter Plan of Treatment +--------+ + + + + | Date | Type | Specialty | Care Team | Description | +--------+ + + + + | 04/04/ | Telephone-S | Surgery | Orquidea Cristobal, | | | 2020 | cheduled | | MIXING MACHINE TENDER CORK GASKET [address] | | | | | | [place], [place] | | | | | | [address] | | | | | | [phone] | | | | | | | [...] | + + + + + | [facility] | [address] | [place] [address] | | | SERVICES, CORE | CLARENCE [...] | | | | | determined by [facility] | | | | | | Laboratories. See | | | | | | Compliance Statement B: | | | | | | [employer].DCITS/CSPerformed | | | | | | by [facility],[address] | | | | | | [facility] | | | | | | [address] | | | | | | [phone].[employer]. | | | | | | cache [...] [facility] | [address] | [place], [place] | | | UNIV PTH - INTFC | | [address] | | + + + + + [...] [facility] | | | (YEN NOAH) | [facility],[address] | | REG UNIV | | | SERUM | [address] [facility],[place] | | PTH - INTFC | | | | [address] | | | | | | [phone].[employer]. | | | | | | Ismael [...] B: | | | | | | Mozio/CS | | | | + + + + + + + + | Specimen | + + | Blood - Blood | | (substance) | + + + + + + + | Performing | Address | City/State/Zipcode | Phone Number | | Organization | | | | + + + + + | [facility] | [address] | [place], [place] | | | UNIV PTH - INTFC | | [address] | | + + + + + [...] | + + + + + | [facility] | [address] | [place] [address] | | | SERVICES, CORE | CLARENCE [...] | + + + + + | [facility] | [address] | [place] [address] | | | SERVICES, LYDIA | CLARENCE [...] | | | | | determined by [facility] | | | | | | Laboratories. See | | | | | | Compliance Statement B: | | | | | | [employer].DCITS/CSPerformed | | | | | | by [employer] [facility],[address] | | | | | | [facility] | | | | | | [address] | | | | | | [phone].[employer]. | | | | | | com, [...] [facility] | [address] | [place], [place] | | | UNIV PTH - INTFC | | [address] | | + + + + + [...] [facility] | | | | | | Eloquii. See | | | | | | Compliance Statement B: | | | | | | [employer].DCITS/CSPerformed | | | | | | by [employer],[address] | | | | | | [address], [facility],[place] | | | | | | [address] | | | | | | [phone].[employer]. | | | | | | cache [...] [facility] | [address] | [place], [place] | | | UNIV PTH - INTFC | | [address] | | + + + + + [...] [facility] | [address] | [place] [address] | | | SERVICES, CORE | PARK [...] | | | | | determined by [facility] | | | | | | Laboratories. See | | | | | | Compliance Statement B: | | | | | | [employer].DCITS/CSPerformed | | | | | | by [employer],[address] | | | | | | [address] [place], [place] | | | | | | [address] | | | | | | [phone].[employer]. | | | | | | comIsmael [...] [facility] | [address] | [place], [place] | | | UNIV PTH - INTFC | | [address] | | + + + + + [...] [facility] | [address] | [place] [address] | | | SERVICES, CORE | PARK [...] [facility] | [address] | [place] [address] | | | SERVICES, CORE | CLARENCE [...] | + + + + + | [facility] | [address] | [place] [address] | | | SERVICES, SPECIAL | CLARENCE [...] | + + + + + | [facility] | [address] | [place] [address] | | | SERVICES, CORE | PARK [...] | | | | | | by [facility],[address] | | | | | | [place] | | | | | | [address] | | | | | | [phone].aruplab. | | | | | | Ismael [...] [facility] | [address] | [place], [place] | | | UNIV PTH - INTFC | | [address] | | + + + + + [...] | | | LABORATORY | | | BELIZEAN | | | SERVICES, | | | [...] | + + + + + | [facility] | [address] [facility] | [place] [address] | | | SERVICES, CORE | CLARENCE [...]
--- OUTSIDE RECORDS SUMMARY | ~2020-03-23 | XMS | Encounter Summary ---
Demographics + + + | Address | [address] | | | [place] [address] | + + + | Home Phone [...] Providers + +------+ + | Care Pin Attacher Name | Role | Phone | + +------+ + PCP | Unavailable | + +------+ + Encounter Details +--------+ + + + + | Date | Type | Department | Care Team | Description | +--------+ + + + + | // | Orders Only | [facility] | Dharmesh Escobar, | | | 2018 | | NEPHROLOGY [place] | ASSISTANT BRANCH OPERATIONS MANAGER [address] | | | | | [address] | [address] | | | | | [address] [place], [place] | [place] | | | | | [address] | [address] | | | | | [phone] | [phone] | | | | | | | [...] R[place]HEY | | | | | | [place] [address] | | | | | | [phone] | | | | | | | | +--------+ + + + + | 04/18/ | Procedure | Neurology | Camille De La Paz, | | | 2019 | visit | | [address] | | | | | | [address] | | | | | | [place] [address] | | | | | | [phone] | | | | | | | [...] | | | LAB | | | Armenian | | | | | + +---------+ [...]
--- OUTSIDE RECORDS SUMMARY | ~2020-03-23 | XMS | Encounter Summary ---
Demographics + + + | Address | [address] | | | [place] [address] | + + + | Home Phone [...] [place], [place] | | | | | [address] | | + + + + + | Ellie Vang | ECON | Unknown | | + + + + + Care Team Providers + +------+ + | Care Associate [employer] Name | Role | Phone | + [...] | | | | | | [place], | | | | | | [place] [address] | | | | | | [phone] | | | +--------+ + + + [...] | | 2020 | sherrill | | CONCRETE JOURNEYMAN [address] | | | | | | [place] | | | | | | [address] | | | | | | [phone] | | | | | | | | +--------+ + + + + documented as of this encounter Visit Diagnoses Not on filedocumented in this encounter"
--- OUTSIDE RECORDS SUMMARY | ~2020-03-23 | XMS | Encounter Summary ---
Demographics + + + | Address | [address] | | | [place] [address] | + + + | Home Phone [...] Organization | [facility] [...] Providers + +------+ + | Care Tape Cutter Name | Role | Phone | + +------+ + PCP | Unavailable | + +------+ + Encounter Details +--------+ + + + + | Date | Type | Department | Care Team | Description | +--------+ + + + + | 02/03/ | Abstract | [facility] | Anitha, | | | 2018 | | GASTROENTEROLOGY | MD [address] | | | | | [address] [facility] | Mayur [address]well | | | | | [address] [place] | [place] [address] | | | | | [address] | | | | | | [phone] | | | +--------+ + + + [...] RICHEY | | | | | | [place] [address] | | | | | | [phone] | | | | | | | | +--------+ + + + + | 04/18/ | Procedure | Neurology | Camille De La Paz, | | | 2019 | visit | | MD Sa[address] | | | | | | [address] | | | | | | [place] [address] | | | | | | [phone] | | | | | | | [...] + +--------+ + + + | FACTOR Fátima RASHID | Routin | 10/04/2018 | | Results [...] 2-Macroglob | | | | | | Brittany bowman | | | | | + + [...] | | + +---------+ + + Vitamin B-10/04/2018) + +-------+ + + + | Component [...]
--- OUTSIDE RECORDS SUMMARY | ~2020-03-23 | XMS | Encounter Summary ---
Demographics + + + | Address | [address] | | | [place] [address] | + + + | Home Phone [...] [place], [place] | | | | | [address] | | + + + + + | Ellie Vang | ECON | Unknown | | + + + + + Care Team Providers + +------+ + | Care Customer Account Specialist Name | Role | Phone | [...] Visit | Medicine Clinic at | J, SUPERMARKET MANAGER | (Primary Dx); | | | | [facility] | | Dysphagia, | | | | [address] | | unspecified type; | | | | [facility] | | Hypertension, | | | | and Healing, | | unspecified type; | | | | [address] | | Hyperlipidemia, | | | | [place], [place] | | unspecified | | | | [address] | | hyperlipidemia type; | | | | [phone] | | Diastolic | | | | [...] insulin | | | | | | ([facility]) | +--------+---------+ + + + Anesthesia Record [...] | | Endotracheal Tube; 7; Oral; | CHEMICAL ETCH OPERATOR | CHEMICAL ETCH OPERATOR | | | Cuffed; 06/23/18; 1542 [...] Tiara Mckeon FNP - 06/16/2018 3:15 PM [facility] PREOPERATIVE INSTRUCTIONS Please consider having an [...] your procedure. Surgery check-in location: Admitting - [facility], [facility] Surgery Check in Time: The Preoperative [...] it is after office hours, call the [facility] piano machine operator at [phone] and ask them to page him or [...] weight loss and diuretic tx, follows with nurse informaticist Hypothyroidism stabilized on hormone replacement Type 2 [...] renal failure no electrolyte abnormalities no dialysis Urology/Tenderizer Tender: Urologic Conditions: nephrolithiasis Endo: Diabetes: type 2 [...] sublingual Place under tongue once daily. CALCIUM CRB&GNQ-A4-OLV37-GENIS ORAL Take 2 tablets by mouth two [...] vagina Allergic rhinitis Anemia Anxiety Bipolar disorder ([facility]) Chronic wound infection of abdomen from 2010 Cough Depression Diverticulitis of colon Dizziness Glaucoma Heart burn Hemorrhoids Hernia of abdominal wall Incisional hernia, incarcerated 2012 Insomnia Irregular periods Kidney stone Leaking of urine Leg sore Lymphedema Morbid obesity with body mass index of 70 and over in adult ([facility]) Myalgia and myositis Nausea Neck pain Numbness Osteoarthritis of knee Palpitations Pneumonia Shortness of breath Staphylococcal infection Stroke ([facility]) TIA (transient ischemic attack) [...] Andie Brian Incisional hernia repair 03/01/2015 [facility]/ Dr. Cantu. Primary fascial closure and scar excision Lap gastric byp, and nilesh-en-y gastroenterostomy w/ nilesh limb 150 cm or less 8 [facility] Family history reviewed / updated [...] weight loss and diuretic tx, follows with nurse informaticist. Appears comp ensated today. Hypothyroidism stabilized on hormone replacement. Take on DOS as usual Type 2 diabetes, well controlled with A1c 6.1 Thank you for the opportunity to contribute to this patient's care. HILDA Lagos [facility] PREOPERATIVE [facility]INIC AT [facility] 4TH FLOOR [address] [facility] [address] I advised the patient regarding NPO [...] Delia | | | | | | [place], [place] | | | | | | [address] | | | | | | [phone] | | | | | | | [...]
--- OUTSIDE RECORDS SUMMARY | ~2020-03-23 | XMS | Encounter Summary ---
Demographics + + + | Address | [address] | | | [place] [address] | + + + | Home Phone [...] + | Katalina Padilla | ECON | [address] | | | | | [place], [place] | | | | | [address] | | + + + + + | Ellie Vang | ECON | Unknown | | + + + + + Care Team Providers + +------+ + | Care Furnace Operator [employer] Name | Role | Phone | + [...] | [facility] | | | with CALL CENTER RN | | hypertension | [address] | [address] | | | | | Right | [address] | [address] | | | | | heart | [facility] [place] | Center for | | | | | failure | [address] | Health and | | | | | ([facility]) Type | Phone: | Healing, | | | | | 2 diabetes | [phone] | [address] | | | | | mellitus | Fax: | [place], [place] | | | | | without | [phone] | [address] | | | | | complication | | Phone: | | | | | , with | | | | | | | long-term | | Fax: | | | | | current use | | [phone] | | | | | of insulin | | | | | | | ([facility]) | | | | | | | [...] | | 2 diabetes | JEAN, | [place], [place] | | | | | mellitus | [place] [address] | [address] | | | | | without | Phone: | Phone: | | | | | complication | [phone] | [phone] | | | | | (HCC) | Fax: | Fax: | | | | | Procedures | [phone] | [phone] | | | | | IN EST | | | | | | [...] 2017 | Visit | Preventive at [facility] | MD [address] | hypertension | | | | [address] | [place], [place] | (Primary Dx); Right | | | | [facility] | [address] | heart failure (HCC); | | | | and Healing, | [phone] | Type 2 diabetes | | | | [address] | | mellitus without | | | | [place], [place] | | complication, with | | | | [address] | | long-term current | | | | [phone] | | use of insulin (HCC) | [...] 81 mg by mouth once daily. CALCIUM CRB&BJJ-U6-KIN92-GENIS ORAL Take 2 tablets by mouth two [...] then she has worked closely with her [facility] doctor and has been been able [...] 12 CREATININE PLASMA (LAB) 0.79 EGFR - MALAGASY >60 EGFR NON -MALAGASY >60 GLUCOSE, PLASMA (LAB) 170 (H) CALCIUM, [...] | | 2019 | sherrill | | ELECTRICAL CONTROL ASSEMBLER [address] | | | | | | [place], [place] | | | | | | [address] | | | | | | [phone] | | | | | | | [...] + + + + | [facility] | [address] | [place] [address] | | | LYDIA RANGEL | CLARENCE [...] | + + + + + | [facility] | [address] | [place], [place] | | | SERVICES, LIPID | [address] | [address] | | + + + + + [...] glycated albumin should be considered for monitoring prison | LABORATORY | | glycemic control in [...] + + + + | [facility] | [address] | [place] [address] | | | SERVICES, SPECIAL | PARK [...] + | NKECHI ROBERTS | [address] | [place] [address] | | | SERVICES, CORE | CLARENCE [...]
--- OUTSIDE RECORDS SUMMARY | ~2020-03-23 | XMS | Encounter Summary ---
Demographics + + + | Address | [address] | | | [place] [address] | + + + | Home Phone [...] + | Katalina Padilla | ECON | [address] | | | | | [place], [place] | | | | | [address] | | + + + + + | Ellie Vang | ECON | Unknown | | + + + + + Care Team Providers + +------+ + | Care Civil Engineering Draftsperson Name | Role | Phone | + +------+ + | Fadi Goodrich DO | PCP | | + +------+ + Encounter Details +--------+------+ + + + | Date | Type | Department | Care Team | Description | +--------+------+ + + + | 11/28/ | Lab | Laboratory at [facility] | | Essential | | 2017 | | [address] | | hypertension; Right | | | | [facility] | | heart failure (HCC); | | | | and Healing, | | Type 2 diabetes | | | | Building [address] | | mellitus without | | | | [place], [place] | | complication, with | | | | [address] | | long-term current | | | | [phone] | | use of insulin (HCC) | [...] | | 2020 | sherrill | | COKE INSPECTOR [address] | | | | | | [place], [place] | | | | | | [address] | | | | | | [phone] | | | | | | | [...] (NA,K,CL,CO2,BUN,CRE | | PDT | heart failure ([facility]) | results section. | | AT,GLUC,CA,AST,ALT,B | | | Type 2 diabetes | | | MARGIE TOTAL,ALK | | | mellitus without | | | PHOS,ALB,PROT TOTAL) | | | complication, with | | | | | | long-term current | | | | | | use of insulin ([facility]) | | + +--------+ + + + | TSH | Routin | 11/28/2016 | Essential | Results for this | | | e | 10:53 AM | hypertension Right | procedure are in the | | | | PDT | heart failure ([facility]) | results section. | | | | | Type 2 diabetes | | | | | | mellitus without | | | | | | complication, with | | | | | | long-term current | | | | | | use of insulin ([facility]) | | + +--------+ + + + | HEMOGLOBIN A1C, | Routin | 11/28/2016 | Essential | Results for this | | BLOOD | e | 10:53 AM | hypertension Right | procedure are in the | | | | PDT | heart failure ([facility]) | results section. | | | | | Type 2 diabetes | | | | | | mellitus without | | | | | | complication, with | | | | | | long-term current | | | | | | use of insulin ([facility]) | | [...] utilizing a similar TSH assay, and | CLAIRE, LYDIA | | should be interpreted with caution. | | + + + + + + + + | Performing | Address | City/State/Zipcode | Phone Number | | Organization | | | | + + + + + | [facility] | [address] | [place] [address] | | | LYDIA RANGEL | CL[facility] [...] [facility] | [address] [facility] | [place], [place] | | | SERVICES, LIPID | [facility] | [address] | | + + + + + HEMOGLOBIN A1C, BLOOD (11/28/2016 10:53 AM PDT) + + + + + + | Component | Value | Ref Range | Performed | Pathologist | | | | | At | Signature | + + + + + + | HEMOGLOBIN | 6.8 (H)Comment: Hgb A1C | <5.7 % | [facility] | | | A1C | [...] [facility] | [address] | [place] [address] | | | SERVICES, SPECIAL | PARK [...] | N[facility] | [address] | [place] [address] | | | SERVICES, CORE | PARK [...]
--- OUTSIDE RECORDS SUMMARY | ~2020-03-23 | XMS | Encounter Summary ---
Demographics + + + | Address | [address] | | | [place] [address] | + + + | Home Phone [...] [place], [place] | | | | | [address] | | + + + + + | Ellie Vang | ECON | Unknown | | + + + + + Care Team Providers + +------+ + | Care Magazine Filler Name | Role | Phone | [...] [place] | | | | | [facility] | [facility] | | | | | [facility] Admitting | [place] [address] | | | | | Desk Located on the | [phone] | | | | | 9th floor | | | | | | [place], [place] | | | | | | [address] | | | +--------+ + + + [...] encounter OR Notes Anesthesia Postprocedure Evaluation - Milana Robles CRNA - 02/08/2014 12:29 PM PDTFor matting of this note might be different from the original. Elzbieta Cristina [phone] Allergies Allergen Reactions Amoxicillin Benadrilina (Diphenhydramine Hcl) Hives Parlodel (Bromocriptine) Unknown Blood clots Past Surgical History Procedure Laterality Date Tonsillectomy and adenoidectomy Appendectomy, open 2010 Umbilical hernia repair 2010 Treatment of ankle fracture with screws remaining Incision and drainage of wound abscess x2 midline transverse wound s/p open appendectomy 2010 Ventral hernia repair 10/2012 Dr. 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 Dial nd pink, warm, brisk capillary refill, strong palpable pulse, strong motor strength. Likely will resolve over time given improvement since yesterday. nesthesia Prepr ocedure Evaluation - Mikaela Joseph MD - 02/07/2014 3:14 PM PDTFormatting of this n ote might be different from the original. Elzbieta Cristina [phone] Allergies Allergen Reactions Amoxicillin Benadrilina (Diphenhydramine Hcl) Hives Parlodel (Bromocriptine) Unknown Blood clots NPO:NPO Status: 10am 02/06/14 Last Vitals: Temp: 36.6 C (97.9 F) Pulse: 101 Resp: 15 BP: 144/81 mmHg SpO2: 97 % O2 Delivery Device: None (room air) Preg Status/LMP: Patient Active Problem List Diagnosis Hernia Morbid obesity Type 2 diabetes mellitus AMARA (obstructive sleep apnea) Edema GERD (gastroesophageal reflux disease) Vitamin D deficiency disease Intertriginous candidiasis HTN (hypertension) Skin breakdown Anemia Decreased mobility Hypoventilation associated with obesity PCOS (polycystic ovarian syndrome) Ventral hernia Migraine headache Abdominal pain Past Surgical History Procedure Laterality Date Tonsillectomy and adenoidectomy Appendectomy, open 2010 Umbilical hernia repair 2010 Treatment of ankle fracture with screws remaining Incision and drainage of wound abscess x2 midline transverse wound s/p open appendectomy 2010 Ventral hernia repair 10/2012 Dr. Andie Brian Current Medication List Name Sig Last Dose ALPRAZOLAM ER 3 MG TABLET,EXTENDED RELEASE 24 HR Take 3 mg by mouth once daily in the morni ng. 02/06/2014 ASCORBIC ACID 500 MG TABLET Take 500 mg by mouth once daily. 02/06/2014 EXCEDRIN BACK & BODY ORAL Take 325 mg by mouth four times daily as needed. Not Taking ERGOCALCIFEROL (VITAMIN D2) 50,000 UNIT CAPSULE Take 50,000 Units by mouth twice weekly (on Thursday and ). 02/06/2014 FERROUS SULFATE 325 MG (65 MG IRON) TABLET Take 325 mg by mouth two times daily. Within l ast 30 days FLUOXETINE 40 MG CAPSULE Take 40 mg by mouth once daily. 02/06/2014 HUMULIN 70/30 SUBQ Inject 50 cc under the skin (SUBC) once daily. 02/06/2014 METFORMIN 1,000 MG TABLET Take 1,000 mg by mouth once daily. 02/06/2014 ZYPREXA ORAL Take 30 mg by mouth once daily. 02/06/2014 PHENTERMINE 37.5 MG TABLET Take 1 tablet by mouth once daily in the morning. Administer bef ore breakfast. Within last 7 days PIROXICAM 20 MG CAPSULE Take 20 mg by mouth once daily. Within last 7 days RANITIDINE 300 MG TABLET Take 300 mg by mouth once daily at bedtime. Within last 7 days SENNOSIDES-DOCUSATE SODIUM 8.6 MG-50 MG TABLET Take 1 Tab by mouth two times daily. 02/07/20 THYROID (PORK) 30 MG TABLET Take 30 mg by mouth once daily. Within last 7 days TOPIRAMATE 25 MG TABLET Take 100 mg by mouth. Take 1 tab twice daily Within last 7 days TORSEMIDE ORAL Take 40 mg by mouth two times daily. Within last 7 days TRAZODONE 150 MG TABLET Take 150 mg by mouth once daily at bedtime. Within last 7 days Lab Results Component Value Date RATE 96 11/06/2012 ATRIALRATE 96 11/06/2012 MT 164 11/06/2012 QRS 92 11/06/2012 QT 376 11/06/2012 QTC 475 11/06/2012 PAXIS 35 11/06/2012 RAXIS 60 11/06/2012 TAXIS 45 11/06/2012 EKGDX Value: Normal sinus rhythm Normal ECG "I have personally interpreted this report, e ither alone or with a trainee." Confirmed by CARINA SMITH ([id number]) on 11/06/2012 3:29:04 PM Preoperative Adult Anesthesia Plan Last edited 02/07/14 3602 by Andie Hope MD ROS Pertinent HPI: Pulmonary: Pt. Has no asthma Dx of sleep apnea Declines BiPap/CPAP Risks factors for sleep apnea: pt. at high risk of AMARA Cardiovascular: Functional Capacity: Low no CAD no pacemaker GI/Hepatic: Hx of ventral hernia repair, ex-lap for incarcerated hernia 1 yr ago. Now with cholecystitis. GERD Control: Poorly controlled No liver disease : Within Defined Limits except as noted below Endo: Neurological: Stroke when she was 18 after she took a "medication that dried up her breast milk." Bipolar Sign/Sx psychiatric problem Current Pain Level: Current pain level: 7 MS: arthritis Heme/Onc: Skin: Physical Exam General: Patients general appearance: Mild distress and No distress Head & Neck/Airway: Soft palate visible, abnormal appearing uvula. Neck ROM: full TM Distance:< 6cm Dentition: dentition is normal Dental risk discussed with/pt : Yes Mallampati: III Mouth Opening: > = 3 cm C-Spine: normal Neck Anatomy: Thick, obese Jaw Protrusion: Normal, lower incisors can protrude past upper incisors Lung Exam: breath sounds normal Cardiac: Rhythm: regular Rate: normal Abdominal: General Findings: Deferred Musculoskeletal: Findings: tone normal Neuro/Psych: alert Integument: Implants: [id number] Anesthesia Plan Comments ASA ASA 3 NPO Status NPO Status: NPO by protocol Monitors/Lines to be used Art line and Standard Anesthetic Consideration Decadron, Two large bore PIV, PONV prophylaxis, Premeds, Increased Aspiration Risk and Preo p antibiotics Induction intravenous induction Anesthetic Technique General; Post-Op Pain Plan IV analgesics and Orals; Blood Products T and S; Interpretive Services Informed Consent PARQ discussed with: patient, Procedures, Alternatives, Risks, and Questions discussed and Risk/benefit of anesthesia plan and blood product discussed ; ; Date Consent Series Given: 02/07/2014 3:15 PM Code status in OR Patients Code Status in OR: FULL 02/07/2014 3:14 PM documented in this enco unter Miscellaneous Notes Addendum Note - Andie Hope MD - 02/08/2014 12:13 PM PDT Addendum created 02/08/14 1213 by Andie Hope MD Modules edited: Anesthesia Attestations rterial Line - Mikaela Grider MD - 02/07/2014 4:36 PM PDTProcedure ART LINE Procedure Information Inserted: After Induction 5 minutes to perform. Indications: Beat to beat blood pressure monitoring Location Performed: [place] Informed Consent: Included in anesthesia consent Protective Barrier: Cap, Mask, Hand scrub and Sterile Gloves Skin Prep: Chloraprep Draped: Partially draped Anesthesia Method: General anesthesia Insertion side: Right Insertion Site: Radial Access device: 20g Line secured by:StatLock Assessment Number of attempts: 1st Complications: None Assessment: Catheter connected to pressure line and flushed, catheter manually flushed, Kareem erated procedure well and Perfusion checked distal to catheter Attending physically present Attending name: ANDIE HOPE Performed by Resident Name: MIKAELA JOSEPH ne airway standard - Mikaela Crowe MD - 02/07/2014 4:28 PM PDTProcedure Reason for Intubation: For surgical procedure, Location Performed: [place] , Patient was preoxyg enated Mask Ventilation Grade 1 - Ventilated by mask Rapid Sequence Induction: with cricoid Intubation Blade type: Mario , Blade size: 3, Atraumatic laryngoscopy: Atraumatic Laryngoscopy, In tubation adjuncts: Ramp , Laryngoscopic view: Grade I, Fiberoptics used: N/A , Number of Att empts: 1, Positive for EtCO2: Yes, Breath sounds: Bilateral and equal ETT Ett Adult: Single-lumen cuffed ETT Size: 7 ETT secured with: adhesive tape Depth at Lip: 22 cm LMA Narrative Attending physically present Attending: ANDIE HOPE Performed by Resident KAYCE JOSEPH Ramped with pillows under shoulders, tragus at sternum. Easily intubated with MAC 3 blade. Atraumatically intubated through open cords. No evidence of damage to teeth or lips. Shelley ent Tolerated the procedure well. Easy airway. MC/ANE PreOp N ote - Andie Hope MD - 02/07/2014 3:03 PM PDT ROS Pertinent HPI: Pulmonary: Pt. Has no asthma Dx of sleep apnea Declines BiPap/CPAP Risks factors for sleep apnea: pt. at high risk of AMARA Cardiovascular: Functional Capacity: Low no CAD no pacemaker GI/Hepatic: Hx of ventral hernia repair, ex-lap for incarcerated hernia 1 yr ago. Now with cholecystitis. GERD Control: Poorly controlled No liver disease : Within Defined Limits except as noted below Endo: Neurological: Stroke when she was 18 after she took a "medication that dried up her breast milk." Bipolar Sign/Sx psychiatric problem Current Pain Level: Current pain level: 7 MS: arthritis Heme/Onc: Skin: Physical Exam General: Patients general appearance: Mild distress and No distress Head & Neck/Airway: Soft palate visible, abnormal appearing uvula. Neck ROM: full TM Distance:< 6cm Dentition: dentition is normal [...] Neuro/Psych: alert Integument: Implants: documented in this enco unter Plan of Treatment +--------+ + + + + | Date | Type | Specialty | Care Team | Description | +--------+ + + + + | 04/04/ | Telephone-S | Surgery | Orquidea Cristobal, | | | 2020 | cheduled | | POLICY ANALYST [address] | | | | | | [place], [place] | | | | | | [address] | | | | | | [phone] | | | | | | | [...] 6:39 | | | | | Starting e 02/07/14 at 1839, | | PM PDT [...]
--- OUTSIDE RECORDS SUMMARY | ~2020-03-23 | XMS | Encounter Summary ---
Demographics + + + | Address | [address] | | | [place] [address] | + + + | Home Phone [...] + | Katalina Padilla | ECON | [address] | | | | | [place], [place] | | | | | [address] | | + + + + + | Ellie Vang | ECON | Unknown | | + + + + + Care Team Providers + +------+ + | Care Automatic Bandsaw Tender Name | Role | Phone | [...] + + | 03/01/ | Hospital | [facility] [address] | Bertha Castanon, | | | 2018 - | Encounter | [address] | [address] | | | | | [place], [place] | [place], [place] | | | 03/03/ | | [address] | [address] | | | 2017 | | [phone] | [phone] | | | | | | | [...] - 03/03/2018 9:49 AM PDT [facility] RED SURGERY INPATIENT DISCHARGE SUMMARY Author: [...] to a bariatric full liquid diets. Our [facility] dietitian was consulted and they [...] at minimum. 5. Follow with PCP for Corrections Sergeant within 1 - 2 weeks of discharge [...] mg by mouth two times daily. CALCIUM [id number]-GENIS ORAL Take 2 tablets by mouth two [...] are available over the counter at most [facility] stores. Nausea/Vomiting/Difficulty Swallowing Nausea/Vomiting/Difficulty swallowing: Could [...] hours per your instructions. Some medications, like [place], have Tylenol in it. Make sure you [...] (PCP) as this clinic does not provide [facility] chronic pain management services. When [...] hours by calling the surgery office at [phone]. - After hours, weekends and holidays, you may call the hospital systems operator at [phone] an d have the continuous improvement manager Red Surgery Team paged. OTHER DISCHARGE [...] at minimum. 5. Follow with PCP for Corrections Sergeant within 1 - 2 weeks of discharge [...] PM [facility] at [facility] 6th Floor [phone] FO OD AND NUT 03/10/2018 3:05 PM Ronna Clarke [facility] at [facility] 6th Floor [phone] [facility] 04/01/2018 10:30 AM [facility] at [facility] 6th Floor [phone] FO OD AND NUT 04/01/2018 11:00 AM Bertha Castanon [facility] at [facility] 6th Floor [phone] [facility] 05/27/2018 2:30 PM Dione Andre [facility] at [facility] 6th Floor [phone] FO OD AND NUT 05/27/2018 3:05 PM Ronna Caron [facility] at [facility] 6th Floor [phone] [facility] 05/27/2018 4:30 PM [facility] 15th Floor [phone] Comprehensiv 06/04/2018 10:35 AM Randell Franks [facility] at [facility] [phone] Cardiology Discharging Physician: KAIN Agee Attending Physician: Bertha Castanon MD [facility] Red Surgery Pager# [phone] 9:50 AM 03/03/2018 documented in this enco [...] | | 0 | | | | [id number]&[id number]-[id number]-GEN | mouth two times | | | [...] date of discharge 03/03/18 PARTHA Calixto MS3 [facility] [employer] Demarcus Menon MD [...] for care ride home (pt lives in [place]) Demarcus Alas M.D. General Surgery Resident PGY-1 Pager: [phone] Bertha Ferrari MD - 10:00 AM PDTI [...] with the procedure today. Charo Shelley MD [facility] [address] [id number] [place] [address] documented in this en counter Procedure Notes [...] Primary Surgeon: Bertha Castanon MD Co Surgeon bag machine operator helper: Eldon Gonzalez MD, Chief Resident Alexx Irwin [...] The jejunum was divided with 60 mm [place] stapler with white load and the distal staple line was marke d with silk suture. The mesentery was divided with harmonic ultrasonic device. The distal jejunum was measure to 150 cm. A stay-suture was placed at this location to the proximal di vided staple line (biliopancreatic limb). Enterotomies were created in each limb and a 60mm [place] stapler with white load was fired to create a [id number]-neqa jejunojejunostomy. The anastamosis was confirmed to be widely patent and hemostatic. The common enterotomy was michael sed by placing 2 stay sutures along the enterotomy for retraction and firing an [place] 60mm stapler with white load across the [...] the lesser sac was entered. The 60mm [place] s tapler with blue load was placed [...] blue load of the 60mm stapler. The [place] was then fired longitudinally towards the angle of His to create the gastric pouch, leaving the gastrotomy from foreign body remov al, on the pouch. Dissection was performed retrogastric to connect posterior and anterior d issection planes and ensure adequate fundus exclusion. Additional fires of the [place] stap ler were performed with blue loads [...] ooze were controlled with 5 mm clip material dispatcher. A 25mm Orvil was passed transorally by [...] The jejunal enterotomy was closed with 60mm [place] stapler with a w demarcus load. Medially [...] Dr. Wagner was present as my assistant professor sculpture for th e entire procedure, given the technically challenging nature of this procedure. She assisted in all critical steps of the procedure. Dr. Gonzalez was present for endoscopy at the end of the procedure. Bertha Castanon MD, FACS, [facility] Bariatric Surgery documented in this en [...] Curre nt diabetic managed is provided by Corrections Sergeant Dr. Franks. She is s/p Laparoscopic gas [...] times daily as needed for anxiety. CALCIUM CRB&[id number]-K4-VCS86-GENIS ORAL Sig: Take 2 tablets by mouth [...] History Narrative Updated 11/09/15 She lives in [place] with her mother and her sister (also her caregiver) lives in an [facility] rtment/duplex below. She has 2 grandchildren (age 4 and 7) who live with her daughter and son-in-law Her boyfriend lives in [place] HFpEF, DM2, HTN, Sleep Apnea (unable to tolerate CPAP), Hypothyroidism, Severe Obesity ([facility] max weight 495 lbs) Last seen by [...] program here and refer her to our study specialist who also has expertise in physical [...] T2DM. Current diabetic managed is provided by Corrections Sergeant Dr. Franks. Her home brittany men includes [...] at minimum. 4. Follow with PCP for Corrections Sergeant within 1 - 2 weeks of discharge [...] re their care, or floor time with [facility] gallo RN(s) caring for this pt. This patient's assessment and plan was discussed with consult attending Dr. Dino August & Fellow Myke Bergeron. Kaylee Ferguson [facility] Endocrinology, Diabetes, & Clinical Nutrition Pager [phone] [email or web address] A [facility] - 03/02/2018 8:13 AM PDTFormatting of this [...] Curre nt diabetic managed is provided by Corrections Sergeant Dr. Franks. She is s/p Laparoscopic gas [...] times daily as needed for anxiety. CALCIUM CRB&[id number]-P3-AEE89-GENIS ORAL Sig: Take 2 tablets by mouth [...] History Narrative Updated 11/09/15 She lives in [place] with her mother and her sister (also her caregiver) lives in an [place] rtment/duplex below. She has 2 grandchildren (age 4 and 7) who live with her daughter and son-in-law Her boyfriend lives in [place] HFpEF, DM2, HTN, Sleep Apnea (unable to tolerate CPAP), Hypothyroidism, Severe Obesity ([facility] max weight 495 lbs) Last seen by [...] program here and refer her to our study specialist who also has expertise in physical [...] T2DM. Current diabetic managed is provided by Corrections Sergeant Dr. Franks. Her home brittany men includes [...] recommendations will follow closer to discharge [facility] Endocrinology, Diabetes, & Clinical Nutrition Pager [phone] I spent 25 minutes in the care [...] Curre nt diabetic managed is provided by Corrections Sergeant Dr. Franks. She is s/p Laparoscopic gas [...] times daily as needed for anxiety. CALCIUM CRB&MJP-I6-LPS82-GENIS ORAL Sig: Take 2 tablets by mouth [...] History Narrative Updated 11/09/15 She lives in [place] with her mother and her sister (also her caregiver) lives in an [facility]dup[facility] below. She has 2 grandchildren (age 4 and 7) who live with her daughter and son-in-law Her boyfriend lives in [place] HFpEF, DM2, HTN, Sleep Apnea (unable to [...] program here and refer her to our study specialist who also has expertise in physical [...] T2DM. Current diabetic managed is provided by Corrections Sergeant Dr. Franks. Her home brittany men includes [...] monitor. Recommendations: Place on Endotool. Kaylee Ferguson [facility] Endocrinology, Diabetes, & Clinical Nutrition Pager [phone] I spent 40 minutes in the care [...] and when/how to notify the doctor. The english faculty member spoke with her about her changes to her insulin regimen. Patient verbalized understanding. All peripheral lines rem lisbet. Patient voiding, passing flatus and pain adequately managed. All questions answered by nursing staff. Discharge Nurse: CHIRAG HARVEY RN andoff - Daniella Godwin RN - 03/03/2018 6:50 AM PDTNursing Handoff [facility] IP NURSE HANDOFF: Jiang hospital course [...] of education, expect good compliance. Macy Leyva [employer] Pager #[phone] andoff - Jasmin Godwin RN - 03/02/2018 [...] RN - 03/01/2018 6:00 PM PDTNursing Handoff [facility] IP NURSE HANDOFF: Jiang hospital course [...] Additional pain medication information: Functional Epidural: N/A ACCOUNTANCY PROFESSOR: N/A Respiratory: RR: 12, O2 Sat: 100 [...] 106 mL Contact Name: Dimple Contact Number: [phone] Family contacted: Yes Comment Belongings: with family documented in this encounter Plan of Treatment +--------+ + + + + | Date | Type | Specialty | Care Team | Description | +--------+ + + + + | 04/04/ | Telephone-S | Surgery | Orquidea Cristobal, | | | 2019 | cheduled | | LANDSCAPE HORTICULTURE INSTRUCTOR [address] | | | | | | [place], [place] | | | | | | [address] | | | | | | [phone] | | | | | | | [...] POC | | PDT | over, adult ([facility]) | results section. | + +--------+ + + + | CAPILLARY BLOOD | Routin | 03/03/2018 | Morbid obesity | Results for this | | GLUCOSE (NO CHG), | e | 7:54 AM | with BMI of 70 and | procedure are in the | | POC | | PDT | over, adult ([facility]) | results section. | + +--------+ + + + | CAPILLARY BLOOD | Routin | 03/03/2018 | Morbid obesity | Results for this | | GLUCOSE (NO CHG), | e | 6:28 AM | with BMI of 70 and | procedure are in the | | POC | | PDT | over, adult ([facility]) | results section. | + +--------+ + + + | CAPILLARY BLOOD | Routin | 03/02/2018 | Morbid obesity | Results for this | | GLUCOSE (NO CHG), | e | 9:17 PM | with BMI of 70 and | procedure are in the | | POC | | PDT | over, adult ([facility]) | results section. | + +--------+ + + + | CAPILLARY BLOOD | Routin | 03/02/2018 | Morbid obesity | Results for this | | GLUCOSE (NO CHG), | e | 6:50 PM | with BMI of 70 and | procedure are in the | | POC | | PDT | over, adult ([facility]) | results section. | + +--------+ + + + | CAPILLARY BLOOD | Routin | 03/02/2018 | Morbid obesity | Results for this | | GLUCOSE (NO CHG), | e | 3:46 PM | with BMI of 70 and | procedure are in the | | POC | | PDT | over, adult ([facility]) | results section. | + +--------+ + + + | CAPILLARY BLOOD | Routin | 03/02/2018 | Morbid obesity | Results for this | | GLUCOSE (NO CHG), | e | 2:36 PM | with BMI of 70 and | procedure are in the | | POC | | PDT | over, adult ([facility]) | results section. | + +--------+ + + + | CAPILLARY BLOOD | Routin | 03/02/2018 | Morbid obesity | Results for this | | GLUCOSE (NO CHG), | e | 1:33 PM | with BMI of 70 and | procedure are in the | | POC | | PDT | over, adult ([facility]) | results section. | + +--------+ + + + | CAPILLARY BLOOD | Routin | 03/02/2018 | Morbid obesity | Results for this | | GLUCOSE (NO CHG), | e | 11:36 AM | with BMI of 70 and | procedure are in the | | POC | | PDT | over, adult ([facility]) | results section. | + +--------+ + + + | CAPILLARY BLOOD | Routin | 03/02/2018 | Morbid obesity | Results for this | | GLUCOSE (NO CHG), | e | 10:32 AM | with BMI of 70 and | procedure are in the | | POC | | PDT | over, adult ([facility]) | results section. | + +--------+ + + + | CAPILLARY BLOOD | Routin | 03/02/2018 | Morbid obesity | Results for this | | GLUCOSE (NO CHG), | e | 9:23 AM | with BMI of 70 and | procedure are in the | | POC | | PDT | over, adult ([facility]) | results section. | + +--------+ + + + | CAPILLARY BLOOD | Routin | 03/02/2018 | Morbid obesity | Results for this | | GLUCOSE (NO CHG), | e | 8:36 AM | with BMI of 70 and | procedure are in the | | POC | | PDT | over, adult ([facility]) | results section. | + +--------+ + + + | CAPILLARY BLOOD | Routin | 03/02/2018 | Morbid obesity | Results for this | | GLUCOSE (NO CHG), | e | 7:35 AM | with BMI of 70 and | procedure are in the | | POC | | PDT | over, adult ([facility]) | results section. | + +--------+ + + + | CAPILLARY BLOOD | Routin | 03/02/2018 | Morbid obesity | Results for this | | GLUCOSE (NO CHG), | e | 6:33 AM | with BMI of 70 and | procedure are in the | | POC | | PDT | over, adult ([facility]) | results section. | + +--------+ + + + | CAPILLARY BLOOD | Routin | 03/02/2018 | Morbid obesity | Results for this | | GLUCOSE (NO CHG), | e | 5:28 AM | with BMI of 70 and | procedure are in the | | POC | | PDT | over, adult ([facility]) | results section. | + +--------+ + + + | CAPILLARY BLOOD | Routin | 03/02/2018 | Morbid obesity | Results for this | | GLUCOSE (NO CHG), | e | 4:36 AM | with BMI of 70 and | procedure are in the | | POC | | PDT | over, adult ([facility]) | results section. | + +--------+ + + + | CAPILLARY BLOOD | Routin | 03/02/2018 | Morbid obesity | Results for this | | GLUCOSE (NO CHG), | e | 2:46 AM | with BMI of 70 and | procedure are in the | | POC | | PDT | over, adult ([facility]) | results section. | + +--------+ + + + | CAPILLARY BLOOD | Routin | 03/02/2018 | Morbid obesity | Results for this | | GLUCOSE (NO CHG), | e | 12:32 AM | with BMI of 70 and | procedure are in the | | POC | | PDT | over, adult ([facility]) | results section. | + +--------+ + + + | CAPILLARY BLOOD | Routin | 03/01/2018 | Morbid obesity | Results for this | | GLUCOSE (NO CHG), | e | 10:31 PM | with BMI of 70 and | procedure are in the | | POC | | PDT | over, adult ([facility]) | results section. | + +--------+ + + + | CAPILLARY BLOOD | Routin | 03/01/2018 | Morbid obesity | Results for this | | GLUCOSE (NO CHG), | e | 8:21 PM | with BMI of 70 and | procedure are in the | | POC | | PDT | over, adult ([facility]) | results section. | + [...] POC | | PDT | over, adult ([facility]) | results section. | + +--------+ + + + | CAPILLARY BLOOD | Routin | 03/01/2018 | Morbid obesity | Results for this | | GLUCOSE (NO CHG), | e | 3:31 PM | with BMI of 70 and | procedure are in the | | POC | | PDT | over, adult ([facility]) | results section. | + +--------+ + + + | CAPILLARY BLOOD | Routin | 03/01/2018 | Morbid obesity | Results for this | | GLUCOSE (NO CHG), | e | 3:29 PM | with BMI of 70 and | procedure are in the | | POC | | PDT | over, adult ([facility]) | results section. | + +--------+ + + + | CAPILLARY BLOOD | Routin | 03/01/2018 | Morbid obesity | Results for this | | GLUCOSE (NO CHG), | e | 2:30 PM | with BMI of 70 and | procedure are in the | | POC | | PDT | over, adult ([facility]) | results section. | + +--------+ + + + | CAPILLARY BLOOD | Routin | 03/01/2018 | Morbid obesity | Results for this | | GLUCOSE (NO CHG), | e | 1:35 PM | with BMI of 70 and | procedure are in the | | POC | | PDT | over, adult ([facility]) | results section. | + +--------+ + + + | CAPILLARY BLOOD | Routin | 03/01/2018 | Morbid obesity | Results for this | | GLUCOSE (NO CHG), | e | 12:16 PM | with BMI of 70 and | procedure are in the | | POC | | PDT | over, adult ([facility]) | results section. | + [...] POC | | PDT | over, adult ([facility]) | results section. | + +--------+ + + + | LAPAROSCOPIC | Electi | 03/01/2018 | Morbid obesity | | | NISH-EN-Y GASTRIC | ve | 8:31 AM | ([facility]) | | | BYPASS | [...] MARQUAM | [address] | [place], [place] | | | [facility] | [address] | [address] | | | TESTS | | | [...] MARQUAM | [address] | [place], [place] | | | [facility] | [address] | [address] | | | TESTS | | | [...] AMES | [address] | [place], [place] | | | [facility] | [address] | [address] | | | TESTS | | | [...] MARQUAM | [address] | [place], [place] | | | [facility] | [address] | [address] | | | TESTS | | | [...] MARQUAM | [address] | [place], [place] | | | [facility] | [address] | [address] | | | TESTS | | | [...] AMES | [address] | [place], [place] | | | [facility] | [address] | [address] | | | TESTS | | | [...] MARQUAM | [address] | [place], [place] | | | [facility] | [address] | [address] | | | TESTS | | | [...] MARQUAM | [address] | [place], [place] | | | [facility] | [address] | [address] | | | TESTS | | | [...] AMES | [address] | [place], [place] | | | [facility] | [address] | [address] | | | TESTS | | | [...] MARQUAM | [address] | [place], [place] | | | [facility] | [address] | [address] | | | TESTS | | | [...] MARQUAM | [address] | [place], [place] | | | [facility] | [address] | [address] | | | TESTS | | | [...] AMES | [address] | [place], [place] | | | [facility] | [address] | [address] | | | TESTS | | | [...] MARQUAM | [address] | [place], [place] | | | [facility] | [address] | [address] | | | TESTS | | | [...] MARQUAM | [address] | [place], [place] | | | [facility] | [address] | [address] | | | TESTS | | | [...] (H) | 70 - 99 mg/dL | [facility] - [...] AMES | [address] | [place], [place] | | | [facility] | [address] | [address] | | | TESTS | | | [...] YAKOVAM | [address] | [place], [place] | | | [facility] | [address] | [address] | | | TESTS | | | [...] - KWAKU | [address] | [place], [place] | | | [facility] | [address] | [address] | | | TESTS | | | [...] (H) | 70 - 99 mg/dL | [facility] - [...] AMES | [address] | [place], [place] | | | [facility] | [address] | [address] | | | TESTS | | | [...] MARQUAM | [address] | [place], [place] | | | [facility] | [address] | [address] | | | TESTS | | | [...] - KW[place]U | [address] | [place], [place] | | | [facility] | [address] | [address] | | | TESTS | | | [...] AMES | [address] | [place], [place] | | | [facility] | [address] | [address] | | | TESTS | | | [...] MARQUAM | [address] | [place], [place] | | | [facility] | [address] | [address] | | | TESTS | | | [...] MARQUAM | [address] | [place], [place] | | | [facility] | [facility] | [address] | | | TESTS | | | [...] (H) | 70 - 99 mg/dL | [facility] - [...] AMES | [address] | [place], [place] | | | [facility] | [address] | [address] | | | TESTS | | | [...] MARQUAM | [address] | [place], [place] | | | [facility] | [address] | [address] | | | TESTS | | | [...] + + | NKECHI AMES | [address] [facility] [address] | [place], [place] | | | [facility] | [address] | [address] | | | TESTS | | | [...] The jejunum was divided with 60 mm [place] stapler with white | | | load [...] created in each limb and a 60mm [place] stapler | | | with white load was fired to create a [id number] | | | jejunojejunostomy. The anastamosis was confirmed to be widely | | | patent and hemostatic. The common enterotomy was closed by placing | | | 2 stay sutures along the enterotomy for retraction and firing an | | | [place] 60mm stapler with white load across the [...] | | | was entered. The 60mm [place] stapler with blue load was placed | [...] blue load of the 60mm stapler. The [place] was then fired | | | longitudinally towards the angle of His to create the gastric pouch, | | | leaving the gastrotomy from foreign body removal, on the pouch. | | | Dissection was performed retrogastric to connect posterior and | | | anterior dissection planes and ensure adequate fundus exclusion. | | | Additional fires of the [place] stapler were performed with blue | | [...] with | | | 5 mm clip material dispatcher. A 25mm Orvil was passed transorally by [...] was closed with 60mm | | | [place] stapler with a white load. Medially and [...] of the procedure. Bertha Castanon MD, FACS, [facility] | | | Bariatric Surgery | [...] The jejunum was divided with 60 mm [place] stapler with white | | | load [...] created in each limb and a 60mm [place] stapler | | | with white load was fired to create a [id number] | | | jejunojejunostomy. The anastamosis was confirmed to be widely | | | patent and hemostatic. The common enterotomy was closed by placing | | | 2 stay sutures along the enterotomy for retraction and firing an | | | [place] 60mm stapler with white load across the [...] | | | was entered. The 60mm [place] stapler with blue load was placed | [...] blue load of the 60mm stapler. The [place] was then fired | | | longitudinally towards the angle of His to create the gastric pouch, | | | leaving the gastrotomy from foreign body removal, on the pouch. | | | Dissection was performed retrogastric to connect posterior and | | | anterior dissection planes and ensure adequate fundus exclusion. | | | Additional fires of the [place] stapler were performed with blue | | [...] with | | | 5 mm clip material dispatcher. A 25mm Orvil was passed transorally by [...] was closed with 60mm | | | [place] stapler with a white load. Medially and [...] of the procedure. Bertha Castanon MD, FACS, [facility] | | | Bariatric Surgery | [...] AMES | [address] | [place], [place] | | | [facility] | [facility] | [address] | | | TESTS | | | [...] of 70 and over, adult ([facility]) - Primary | + + | Diabetes mellitus type 2 without retinopathy ([facility]) Type II or unspecified type |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 without mention of complication, not stated as uncontrolled | + + | AMARA treated with BiPAP | + + | Chronic diastolic heart failure ([facility]) Chronic diastolic heart failure | [...]
--- OUTSIDE RECORDS SUMMARY | ~2020-03-23 | XMS | Encounter Summary ---
Demographics + + + | Address | [address] | | | [place] [address] | + + + | Home Phone [...] Team Providers + +------+ + | Care Weir Fisherman Name | Role | Phone | [...] | Pre-op evaluation | | 2020 | [facility] | Medicine Clinic at | | | | | | [facility] | | | | | | [address] | | | | | | [facility] | | | | | | and Healing, | | | | | | Building [address] | | | | | | [place], [place] | | | | | | [address] | | | | | | [phone] | | | +--------+ + + + + Anesthesia Record + + + + + | Procedure Name | Responsible | Anesthesia Start | Anesthesia Stop Time | | | Anesthesiologist | Time | | + + + + + | OPEN VENTRAL HERNIA | Andie Hope MD | 08/19/19 1417 | 08/19/19 4465 | | REPAIR (N/A ) | | [...] | POLINA Ladd; Endotracheal | POLINA | AIRDOX FITTER | | | Tube; 7.5; Oral; Cuffed; [...] PM PST PREOPERATIVE INSTRUCTIONS Surgery check-in location: [facility] Surgery Check in Time: you will receive a call 1-3 business days before your surgery confi rming your exact arrival/check-in time for your surgery day. We know that planning for surg eileen can be stressful and involve a lot of family/friend/transportation coordination as well as hotel arrangements. The Preoperative [facility] does not have [facility] to [facility], and we encourage you to contact [...] ACID (VITAMIN C) 500 MG TABLET CALCIUM CRB&RKZ-[id number]-[id number]-GENIS ORAL CYANOCOBALAMIN (VIT B-12) 1,000 MCG TABLET [...] ch as Uber/Lyft), or public transportation. An Uber/Lyft/garbage truck driver does not count as the [...] it is after office hours, call the [facility] tool grinder operator at [phone] and ask them to page him or h er. documented in this encounter Miscellaneous Notes Telephone Encounter - Aelxia Hector RN - 07/29/2019 3:25 PM PSTPhone appointment compl eted as scheduled. Documentation to be found in the Notes and Trans Encounter tab in [employer]. Aug 04, 2019--received message from Nicole at [...] | | 2019 | cheduhipolito | | [facility] [address] | | | | | | [place], [place] | | | | | | [address] | | | | | | [phone] | | | | | | | | +--------+ + + + + documented as of this encounter Visit Diagnoses Not on filedocumented in this encounter
--- OUTSIDE RECORDS SUMMARY | ~2020-03-23 | XMS | Encounter Summary ---
Demographics + + + | Address | [address] | | | [place] [address] | + + + | Home Phone [...] [place], [place] | | | | | [address] | | + + + + + | Ellie [place]ang | ECON | Unknown | | + + + + + Care Team Providers + +------+ + | Care Social Media Coordinator Name | Role | Phone | + +------+ + | Fadi Goodrich DO | PCP | | + +------+ + Reason for Visit + +--------+ + | Reason | Onset | Comments | | | Date | | + +--------+ + | Care Coordination | 11/08/ | | | | 2014 | | + +--------+ + Encounter Details +--------+ + + + + | Date | Type | Department | Care Team | Description | +--------+ + + + + | 11/08/ | Telephone | Cardiology | Randell Franks, | Care Coordination | | 2015 | | Preventive at [facility] | [address] | | | | | [address] | [place], [place] | | | | | [facility] | [address] | | | | | and [place], | [phone] | | | | | [place] [address] | | | | | | [place], [place] | | | | | | [address] | | | | | | [phone] | | | +--------+ + + + [...] Telephone Encounter - Corazon Alexis RN - 11/08/2014 12:05 PM [facility] office received a letter (see abstract uploaded under Shereen Pinto 11/06/14). Parul Chan (RN Case [facility] ) is requesting more information regarding the status of Ms Cristina's bariatric surgery. She i s also Requesting Dr Franks's last two visit notes. -Referred back to bariatric surgery department for updates regarding bariatric sugery -Will fax over last 2 visit notes to [phone] signed by Corazon Alexis RN at 11/08/2014 12:16 PM PDTdocumented in this encounter Plan of Treatment +--------+ + + + + | Date | Type | Specialty | Care Team | Description | +--------+ + + + + | 04/04/ | Telephone-S | Surgery | Orquidea Cristobal, | | | 2019 | chesteve | | SUPERVISOR IN CHARGE [address] | | | | | | [place], [place] | | | | | | [address] | | | | | | [phone] | | | | | | | | +--------+ + + + + documented as of this encounter Visit Diagnoses Not on filedocumented in this encounter"
--- OUTSIDE RECORDS SUMMARY | ~2020-03-23 | XMS | Encounter Summary ---
Demographics + + + | Address | [address] | | | [place] [address] | + + + | Home Phone [...] Providers + +------+ + | Care Car Top Bolter Name | Role | Phone | + [...] Closed | | Radiology | Diagnoses | [place], | [facility] | | | | | Deep vein | Dharmesh | Intra Op [address] | | | | | thrombosis | MD Natan | [address] | | | | | (DVT) of | [address] | [place], [place] | | | | | left lower | [address] | [address] | | | | | extremity, | [address] | Phone: | | | | | unspecified | [place], [place] | [phone] | | | | | chronicity, | [address] | Fax: | | | | | unspecified | Phone: | [phone] | | | | | vein (HCC) | [phone] | | | | | | Procedures | Fax: | | | | | | IR Removal | [phone] | | | | | | Fibrin [...] | | (DVT) of | [address] | [place], [place] | | | | | left lower | [address] | [address] | | | | | extremity, | [address] | Phone: | | | | | unspecified | [place], [place] | [phone] | | | | | chronicity, | [address] | Fax: | | | | | unspecified | Phone: | [phone] | | | | | vein (HCC) | [phone] | | | | | | Procedures | Fax: | | | | | | IR Removal | [phone] | | | | | | Fibrin | | | | | | | Sheath/Clot | | | | | | | on Device | | | +--------+--------+ + + + + Encounter Details +--------+ + + + + | Date | Type | Department | Care Team | Description | +--------+ + + + + | 06/22/ | Hospital | [facility] | Dharmesh Melchor | Deep vein thrombosis | | 2019 | Encounter | CENTER CV INTRA OP | MD Natan [address] | (DVT) of left lower | | | | [address] | [address] | extremity, | | | | [place], [place] | [place] [address] | unspecified | | | | [address] | [phone] | chronicity, | | | | [phone] | | unspecified vein | | | | | Christian Dawson MD | (HCC) | | | | | [address] | | | | | | [place], [place] | | | | | | [address] | | | | | | | [...] notice any of the signs, contact the [facility] at between 8:00 am and 5:00 pm, [...] | | 0 | | | | Uawhyth-Jtddvqcrj-Rv | mouth 2 times daily. | | [...] + + +---------+ + + | thyroid (ACCESS MANAGER | ACCESS MANAGER Thyroid 30 mg | | 0 | [...] right ventricular diastolic dysfunction (HCC) 10/26/2015 Overview: [facility] Last Assessment & Plan: Patient with [...] o besity Pickwickian syndrome Recent admission to [facility] for 100lb weight gain- DC [...] w Diabetes mellitus type 2 without retinopathy ([facility]) 04/14/2013 Diabetes mellitus with insulin therapy ([facility]) 12/27/2014 DM (diabetes mellitus) ([facility]) 05/09/2016 Overview: A1c 5.29 Aug 2014 Last [...] morbid obesity, she is enrolled in e [facility] bariatric program. She has lost approximately 50 [...] Plan: TSH WNL 10/2015. She is on [facility] thyroid as OP. -TSH WNL -continu e supplementation here Hypoventilation associated with obesity (HCC) 06/16/2013 Last Assessment & Plan: [facility] Bariatric Program, has lost 50lbs. STEFANO (iron deficiency anemia) 02/03/2019 Overview: Presumed due to menses. Venofer 200 qd x 30 October 2015 [facility] Last Assessment & P sharon: Hgb [...] Diagnosis: RUE DVT Post OP Diagnosis: Same Orchid Transplanter: Christian Dawson MD/PhD Anesthesia Type: No sedation [...] | | | | | | [place] [address] | | | | | | [phone] | | | | | | | | +--------+ + + + + | 04/18/ | Procedure | Neurology | Camille De La Paz, | | | 2019 | visit | | [address] | | | | | | [address] | | | | | | [place] [address] | | | | | | [phone] | | | | | | | [...]
--- OUTSIDE RECORDS SUMMARY | ~2020-03-23 | XMS | Encounter Summary ---
Demographics + + + | Address | [address] | | | [place] [address] | + + + | Home Phone [...] + | Katalina Padilla | ECON | [address] | | | | | [place], [place] | | | | | [address] | | + + + + + | [place]ie [place]ang | ECON | Unknown | | + + + + + Care Team Providers + +------+ + | Care Microbial Specialist Name | Role | Phone | [...] | | 2018 | | Center at [facility] [address] | MD [address] | | | | | [address] | [place], [place] | | | | | for Health and | [address] | | | | | [facility], [facility] 2 | [phone] | | | | | [place], [place] | | | | | | [address] | | | | | | [phone] | | | +--------+--------+ + + + [...] | | 2020 | sherrill | | MUNICIPAL SERVICES MANAGER [address] | | | | | | [place] | | | | | | [address] | | | | | | [phone] | | | | | | | | +--------+ + + + + documented as of this encounter Visit Diagnoses Not on filedocumented in this encounter"
--- OUTSIDE RECORDS SUMMARY | ~2020-03-23 | XMS | Encounter Summary ---
Demographics + + + | Address | [address] | | | [place] [address] | + + + | Home Phone [...] [place], [place] | | | | | [address] | | + + + + + | Ellie Vang | ECON | Unknown | | + + + + + Care Team Providers + +------+ + | Care Vp Of Digital Marketing Name | Role | Phone | + +------+ + | Fadi Goodrich DO | PCP | | + +------+ + Reason for Visit + + + | Reason | Comments | + + + | Medical Records | Letter from case assembler. | | Review | | + + + Encounter Details +--------+ + + + + | Date | Type | Department | Care Team | Description | +--------+ + + + + | 11/08/ | Abstract | Digestive Health | Shereen Georges, | Medical Records | | 2014 | | Center at [facility] | [facility] [address] | Review (Letter from | | | | [address] [facility] | [place], [place] | case assembler. ) | | | | for Health and | [address] | | | | | [facility], [place] [address] | [phone] | | | | | [place], [place] | | | | | | [address] | | | | | | [phone] | | | +--------+ + + + [...] | | 2020 | sherrill | | FISH STRINGER ASSEMBLER [address] | | | | | | [place] | | | | | | [address] | | | | | | [phone] | | | | | | | | +--------+ + + + + documented as of this encounter Visit Diagnoses Not on filedocumented in this encounter"
--- OUTSIDE RECORDS SUMMARY | ~2020-03-23 | XMS | Encounter Summary ---
Demographics + + + | Address | [address] | | | [place] [address] | + + + | Home Phone [...] [place], [place] | | | | | [address] | | + + + + + | Ellie Vang | ECON | Unknown | | + + + + + Care Team Providers + +------+ + | Care Direct Chill Casting Operator Name | Role | Phone | [...] Diabetes & | Morbid | Kathy Feliciano, DIRECTOR STERILE PROCESSING | [address] | | | | Metabolism | obesity | [address] | Pavilion | | | | | (HCC) | [address], | Loop | | | | | Procedures | [address] | Physician's | | | | | CONSULT TO | [place], [place] | Pavilion | | | | | ENDO | [address] | Physician's | | | | | [address] | Phone: | Pavilion | | | | | [address] | [phone] | [place], [place] | | | | | | Fax: | [address] | | | | | | [phone] | Phone: | | | | | | | [phone] | | | | | | | Fax: | | | | | | | [phone] | +--------+--------+ + + + + Encounter Details +--------+ + + + + | Date | Type | Department | Care Team | Description | +--------+ + + + + | 11/15/ | Documentati | Digestive Health | Conser, Kathy M, | | | 2013 | on | Center at [facility] [address] | DIRECTOR STERILE PROCESSING [address] | | | | | [address] [facility] | [facility] 350 | | | | | for Health and | [place], [place] | | | | | [facility] 2 | [address] | | | | | [place], [place] | [phone] | | | | | [address] | | | | | | [phone] | | | +--------+ + + + [...] in this encount er Plan of Treatment +--------+ + + + + | Date | Type | Specialty | Care Team | Description | +--------+ + + + + | 04/04/ | Telephone-S | Surgery | Orquidea Cristobal, | | | 2020 | chesteve | | ANIMAL CARETAKER SUPERVISOR [address] | | | | | | [place], [place] | | | | | | [address] | | | | | | [phone] | | | | | | | | +--------+ + + + + documented as of this encounter Visit Diagnoses + + | Diagnosis | + + | Morbid obesity (HCC) - Primary Morbid obesity | + + documented in this encounter"
--- OUTSIDE RECORDS SUMMARY | ~2020-03-23 | XMS | Encounter Summary ---
Demographics + + + | Address | [address] | | | [place] [address] | + + + | Home Phone [...] [place], [place] | | | | | [address] | | + + + + + | [place]ang | ECON | Unknown | | + + + + + Care Team Providers + +------+ + | Care Account Development Specialist Name | Role | Phone | + +------+ + | Kenyatta Cardenas MD | PCP | | + +------+ + Encounter Details +--------+ + + + + | Date | Type | Department | Care Team | Description | +--------+ + + + + | 03/02/ | Car Electronics Installer | Digestive Health | Keren Allen, | | | 2019 | | Center at [facility] [address] | AGACNP [address] | | | | | [address] [place] | Ave [facility] [place] | | | | | for Health and | [address] | | | | | Healing, [facility] 2 | | | | | | [place], [place] | | | | | | [address] | | | | | | | [...] Orquidea Cristobal, | | | 2019 | cheloveled | | COMPRESS MACHINE OPERATOR [address] | | | | | | [place] | | | | | | [address] | | | | | | [phone] | | | | | | | | +--------+ + + + + documented as of this encounter Visit Diagnoses Not on filedocumented in this encounter"
--- OUTSIDE RECORDS SUMMARY | ~2020-03-23 | XMS | Encounter Summary ---
Demographics + + + | Address | [address] | | | [place] [address] | + + + | Home Phone [...] [place], [place] | | | | | [address] | | + + + + + | Ellie Vang | ECON | Unknown | | + + + + + Care Team Providers + +------+ + | Care Belt Fixer Name | Role | Phone | [...] 2012 | | Center at [facility] [address] | ACNP [address] | | | | | [address] | [place], [place] | | | | | for Health and | [address] | | | | | [facility], [facility] 2 | | | | | | [place], [place] | | | | | | [address] | | | | | | | [...] | | 2019 | sherrill | | BEER RUNNER [address] | | | | | | [place], [place] | | | | | | [address] | | | | | | [phone] | | | | | | | | +--------+ + + + + documented as of this encounter Visit Diagnoses Not on filedocumented in this encounter"
--- OUTSIDE RECORDS SUMMARY | ~2020-03-23 | XMS | Encounter Summary ---
Demographics + + + | Address | [address] | | | [place] [address] | + + + | Home Phone [...] [place], [place] | | | | | [address] | | + + + + + | Ellie Vang | ECON | Unknown | | + + + + + Care Team Providers + +------+ + | Care Induction Coordination Engineer Name | Role | Phone | + +------+ + | Fadi Goodrich DO | PCP | | + +------+ + Encounter Details +--------+ + + + + | Date | Type | Department | Care Team | Description | +--------+ + + + + | 03/02/ | Abstract | Digestive Health | Hernandez Brian, | | | 2012 | | [place] [address] [address] | [address] [facility] | | | | | [address] [facility] | [facility] | | | | | for [facility] and | [place], [place] | | | | | [facility] 2 | [address] | | | | | [place], [place] | [phone] | | | | | [address] | | | | | | [phone] | | | +--------+ + + + [...] | | 2019 | sherrill | | CORPORATE LEGAL SECRETARY [address] | | | | | | [place], [place] | | | | | | [address] | | | | | | [phone] | | | | | | | | +--------+ + + + + documented as of this encounter Visit Diagnoses Not on filedocumented in this encounter"
--- OUTSIDE RECORDS SUMMARY | ~2020-03-23 | XMS | Encounter Summary ---
Demographics + + + | Address | [address] | | | [place] [address] | + + + | Home Phone [...] [place], [place] | | | | | [address] | | + + + + + | Ellie Vang | ECON | Unknown | | + + + + + Care Team Providers + +------+ + | Care Infection Control Manager Name | Role | Phone | [...] | | 2019 | sherrill | | GUIDE DOG MOBILITY INSTRUCTOR [address] | | | | | | [place] | | | | | | [address] | | | | | | [phone] | | | | | | | | +--------+ + + + + documented as of this encounter Visit Diagnoses Not on filedocumented in this encounter"
--- OUTSIDE RECORDS SUMMARY | ~2020-03-23 | XMS | Encounter Summary ---
Demographics + + + | Address | [address] | | | [place] [address] | + + + | Home Phone [...] [place], [place] | | | | | [address] | | + + + + + | Ellie Vang | ECON | Unknown | | + + + + + Care Team Providers + +------+ + | Care Manager Systems Name | Role | Phone | + [...] | | 2014 | | Center at [facility] [address] | [facility] [address] | Review (Pre-surgery | | | | [address] [facility] | Ave [place], [place] | meal plan. To be | | | | for Health and | [address] | provided to home | | | | [facility], [address] | [phone] | health nurse. ) | | | | [place], [place] | | | | | | [address] | | | | | | [phone] | | | +--------+ + + + [...] | | 2019 | sherrill | | MONUMENT LETTERER [address] | | | | | | [place], [place] | | | | | | [address] | | | | | | [phone] | | | | | | | | +--------+ + + + + documented as of this encounter Visit Diagnoses Not on filedocumented in this encounter"
--- OUTSIDE RECORDS SUMMARY | ~2020-03-23 | XMS | Encounter Summary ---
Demographics + + + | Address | [address] | | | [place] [address] | + + + | Home Phone [...] [place], [place] | | | | | [address] | | + + + + + | Ellie Vang | ECON | Unknown | | + + + + + Care Team Providers + +------+ + | Care Server Security Administrator Name | Role | Phone | + +------+ + | Kenyatta Cardenas MD | PCP | | + +------+ + Reason for Visit + +--------+ + | Reason | Onset | Comments | | | Date | | + +--------+ + | Medical Records | 04/05/ | | | Review | 2019 | | + +--------+ + Encounter Details +--------+ + + + + | Date | Type | Department | Care Team | Description | +--------+ + + + + | 04/05/ | Abstract | Digestive Health | Clinic, Surgery | Medical Records | | 2019 | | Center at [facility] [address] | | Review | | | | [facility] | | | | | | for Health and | | | | | | [facility], [place] [address] | | | | | | [place], [place] | | | | | | [address] | | | | | | [phone] | | | +--------+ + + + [...] | | 2019 | sherrill | | HOST/HOSTESS HEAD [address] | | | | | | [place], [place] | | | | | | [address] | | | | | | [phone] | | | | | | | | +--------+ + + + + documented as of this encounter Visit Diagnoses Not on filedocumented in this encounter"
--- OUTSIDE RECORDS SUMMARY | ~2020-03-23 | XMS | Encounter Summary ---
Demographics + + + | Address | [address] | | | [place] [address] | + + + | Home Phone [...] + | Author | [facility] | | | and Jeffana | + + + | Organization | [facility] | | | [...] Providers + +------+ + | Care Drafter Landscape Name | Role | Phone | + [...] + + | 02/12/ | Telephone | [facility] | Camille De La Paz, | Other (Medication) | | 2020 | | NEUROLOGY [address] | [address] | | | | [address] | [facility] | | | | | [place], [place] | [place] [address] | | | | | [address] | [phone] | | | | | [phone] | | | +--------+ + + + [...] other symptoms. Please call Elzbieta back at [phone] If this is a symptom based call, was patient offered triage? Not Applicable If this is a symptom based call and you were unable to immediately transfer the call to a romeo ellis hot press operator was caller made aware that if [...] RICHEY | | | | | | [place] [address] | | | | | | [phone] | | | | | | | | +--------+ + + + + | 04/18/ | Procedure | Neurology | Camille De La Paz, | | 2019 | visit | | [address] | | | | | | [address] | | | | | | [place] [address] | | | | | | [phone] | | | | | | | | +--------+ + + + + documented as of this encounter Visit Diagnoses Not on filedocumented in this encounter
--- OUTSIDE RECORDS SUMMARY | ~2020-03-23 | XMS | Encounter Summary ---
Demographics + + + | Address | [address] | | | [place] [address] | + + + | Home Phone [...] [place], [place] | | | | | [address] | | + + + + + | Ellie Vang | ECON | Unknown | | + + + + + Care Team Providers + +------+ + | Care Culinary Specialist Name | Role | Phone | [...] | 2018 | Review | Center at [facility] [address]85 | ACNP [address] | Recommendations | | | | [address] [facility] | Ave [place], [place] | | | | | [facility] Health and | [address] | | | | | [facility], [facility] 2 | [phone] | | | | | [place], [place] | | | | | | [address] | | | | | | [phone] | | | +--------+ + + + [...] Optimized. May proceed with surgery. Disposition: 1. [facility] staff will contact patient with next steps. documented in this encounter Plan of Treatment +--------+ + + + + | Date | Type | Specialty | Care Team | Description | +--------+ + + + + | 04/04/ | Telephone-S | Surgery | Orquidea Cristobal, | | | 2020 | sherrill | | ROUTE DELIVERY SERVICE DRIVER [address] | | | | | | [place], [place] | | | | | | [address] | | | | | | [phone] | | | | | | | | +--------+ + + + + documented as of this encounter Visit Diagnoses Not on filedocumented in this encounter"
--- OUTSIDE RECORDS SUMMARY | ~2020-03-23 | XMS | Encounter Summary ---
Demographics + + + | Address | [address] | | | [place] [address] | + + + | Home Phone [...] + +------+ + | Care Public Health Teacher Name | Role | Phone | [...] + + | 08/17/ | Refill | [facility] | Sulema Altamirano | Medication Refill | | 2019 | | CARDIOLOGY SAIMA | HILDA [address] | | | | | [address] | [address] | | | | | [address] | [place] [address] | | | | | [place] | [phone] | | | | | [address] | | | | | | [phone] | | | +--------+--------+ + + + [...] | | | | | | [place] [address] | | | | | | [phone] | | | | | | | | +--------+ + + + + | 04/18/ | Procedure | Neurology | Camille De La Paz, | | | 2019 | visit | | MD [address] | | | | | | [address] | | | | | | [place] [address] | | | | | | [phone] | | | | | | | | +--------+ + + + + documented as of this encounter Visit Diagnoses Not on filedocumented in this encounter"
--- OUTSIDE RECORDS SUMMARY | ~2020-03-23 | XMS | Encounter Summary ---
Demographics + + + | Address | [address] | | | [place] [address] | + + + | Home Phone [...] [place], [place] | | | | | [address] | | + + + + + | Ellie Vang | ECON | Unknown | | + + + + + Care Team Providers + +------+ + | Care Desk Assistant Name | Role | Phone | [...] | | 2014 | | Preventive at [facility] | MD [address] | (Phentermine); | | | | [address] | [place], [place] | Refill Request | | | | [facility] | [address] | | | | | and [place], | [phone] | | | | | [place] [address] | | | | | | [place], [place] | | | | | | [address] | | | | | | [phone] | | | +--------+--------+ + + + [...] 9:20 am Next Visit: Next Appointment in [facility] is on 08/28/14 at 10:20 am with Randell Franks MD. elephone Encounter - Corazon Kwon RN - 07/31/2014 10:34 AM PSTReceived refill request for Phentermine 37.5 mg, from patient (would like refill sent to [facility] in [place], [place]). Patient was last seen in clinic 03/09, by Dr Franks.Ms Cristina has follow up scheduled 08/28/14 . Setup prescription per protocol for signature by provider, and phone in: Pharmacy: [facility] [address] [facility] [place] [phone] elephone Deepti Rodriguez - 07/31/2014 10:25 AM PST Reason for Call: Refill Request - Phentermine Refill Request Patient: Elzbieta Cristina Patient Contact Numbers: Home Phone Message: Description of reason for call: Patient calling regarding refill of Phentermine. Patient ca lled in on Thursday07/28/14, completely of of medication, [facility] [place] [place] Last Visit: 03/06/14 at 9:20 am Next Visit: Next Appointment in [facility] is on 08/28/14 at 10:20 am [...] 3 month refill o f Phentermine to [facility] in [place], she is out of meds and doesn't see Dr. Loya ll until Aug 2014. Please contact patient for further information. Last Visit: 03/06/14 at 9:20 am Next Visit: Next Appointment in [facility] is on 08/28/14 at 10:20 am with Randell Franks MD. documented in this encounter Plan of Treatment +--------+ + + + + | Date | Type | Specialty | Care Team | Description | +--------+ + + + + | 04/04/ | Telephone-S | Surgery | Orquidea Cristobal, | | | 2019 | cheduled | | PSYCH RN [address] | | | | | | [place], [place] | | | | | | [address] | | | | | | [phone] | | | | | | | | +--------+ + + + + documented as of this encounter Visit Diagnoses Not on filedocumented in this encounter"
--- OUTSIDE RECORDS SUMMARY | ~2020-03-23 | XMS | Encounter Summary ---
Demographics + + + | Address | [address] | | | [place] [address] | + + + | Home Phone [...] [place], [place] | | | | | [address] | | + + + + + | Ellie Vang | ECON | Unknown | | + + + + + Care Team Providers + +------+ + | Care Sous Chef Name | Role | Phone | [...] | | 2020 | sarahiduled | | RUBBER CALENDER HELPER [address] | | | | | | [place], [place] | | | | | | [address] | | | | | | [phone] | | | | | | | | +--------+ + + + + documented as of this encounter Visit Diagnoses Not on filedocumented in this encounter"
--- OUTSIDE RECORDS SUMMARY | ~2020-03-23 | XMS | Encounter Summary ---
Demographics + + + | Address | [address] | | | [place] [address] | + + + | Home Phone [...] [place], [place] | | | | | [address] | | + + + + + | Ellie Vang | ECON | Unknown | | + + + + + Care Team Providers + +------+ + | Care Shear Assembler Name | Role | Phone | + +------+ + | Fadi Goodrich DO | PCP | | + +------+ + Encounter Details +--------+ + + + + | Date | Type | Department | Care Team | Description | +--------+ + + + + | 02/24/ | Abstract | Cardiology | Randell Franks, | | | 2015 | | Preventive at [facility] | MD [address] | | | | | [address] | [place], [place] | | | | | [facility] | [address] | | | | | and [place], | [phone] | | | | | [address] | | | | | | [facility] [place] | | | | | | [address] | | | | | | [phone] | | | +--------+ + + + [...] | | 2020 | cheduhipolito | | FAST FOOD ATTENDANT [address] | | | | | | [place], [place] | | | | | | [address] | | | | | | [phone] | | | | | | | | +--------+ + + + + documented as of this encounter Visit Diagnoses Not on filedocumented in this encounter"
--- OUTSIDE RECORDS SUMMARY | ~2020-03-23 | XMS | Encounter Summary ---
Demographics + + + | Address | [address] | | | [place] [address] | + + + | Home Phone [...] [place], [place] | | | | | [address] | | + + + + + | Ellie Vang | ECON | Unknown | | + + + + + Care Team Providers + +------+ + | Care Global Technical Writer Name | Role | Phone | [...] Bariatric Nutrition | | 2014 | | [facility] at [facility] [address] | [facility] [place] [address] | (11/03 and 11/06 phone | | | | [facility] | [address] | calls) | | | | for Health and | [place], [place] | | | | | [place] [address] | [address] | | | | | [place], [place] | [phone] | | | | | [address] | | | | | | [phone] | | | +--------+ + + + [...] 11/15/2014 8:17 AM PDTSpoke with Elzbieta Ordaz's manager division on 11/03 and 11/06 (also see 11/08 [...] assistance. I discussed these concerns with her manager division, and our team (MD, RN, TRANSPORTATION PLANNER). I encouraged closer f/u with her PCP given that Elzbieta lives in [place] (~3.5 hours away). Elzbieta has a follow up with HA at [facility] December 26 (the earliest she can afford to come in). I am available to assist RN, PCP & any other i nterested parties as needed until then. See RD notes from visits in Chart Review section. Yuli Childs RD, [facility], [place] Pager# [phone] documented teddy n this encounter Plan of Treatment +--------+ + + + + | Date | Type | Specialty | Care Team | Description | +--------+ + + + + | 04/04/ | Telephone-S | Surgery | Orquidea Cristobal, | | | 2019 | sherrill | | ELECTRICAL CONTACTS ADJUSTER [address] | | | | | | [place] | | | | | | [address] | | | | | | [phone] | | | | | | | | +--------+ + + + + documented as of this encounter Visit Diagnoses Not on filedocumented in this encounter"
--- OUTSIDE RECORDS SUMMARY | ~2020-03-23 | XMS | Encounter Summary ---
Demographics + + + | Address | [address] | | | [place] [address] | + + + | Home Phone [...] [place], [place] | | | | | [address] | | + + + + + | Ellie Vang | ECON | Unknown | | + + + + + Care Team Providers + +------+ + | Care Battery Tester Field Name | Role | Phone | [...] | | 2017 | | Preventive at [facility] | MD [address] | | | | | [address] | [place], [place] | | | | | [facility] | [address] | | | | | and [place], | [phone] | | | | | [address] | | | | | | [place], [place] | | | | | | [address] | | | | | | [phone] | | | +--------+ + + + [...] Class: Requires Phone In Route: oral Order: [id number] elephone Encounter - Ellie Dumont - 06/15/2017 3:14 PM PSTPharmacy Preference: [facility] [place], [place] - [address] Provider: Dr. Franks Medication phentermine 37.5 mg oral tablet How many days' worth of medication does patient have? Patient is out of medication If less than 2 days on hand, route as HIGH PRIORITY. Best number to reach patient today: [phone] ~~~ROUTE TO [employer] MED REFILL ~~~ documented in this encounter Plan of Treatment +--------+ + + + + | Date | Type | Specialty | Care Team | Description | +--------+ + + + + | 04/04/ | Telephone-S | Surgery | Orquidea Cristobal, | | | 2019 | sherrill | | COUNTER SALES REPRESENTATIVE [address] | | | | | | [place], [place] | | | | | | [address] | | | | | | [phone] | | | | | | | | +--------+ + + + + documented as of this encounter Visit Diagnoses Not on filedocumented in this encounter"
--- OUTSIDE RECORDS SUMMARY | ~2020-03-23 | XMS | Encounter Summary ---
Demographics + + + | Address | [address] | | | [place] [address] | + + + | Home Phone [...] [place], [place] | | | | | [address] | | + + + + + | Ellie Vang | ECON | Unknown | | + + + + + Care Team Providers + +------+ + | Care Furnace Checker Name | Role | Phone | [...] | obstruction | [address] | [address] [place], | | | | | or gangrene | Rd | [place] | | | | | | [place], [place] | [address] | | | | | Incarcerated | [address] | Phone: | | | | | ventral | Phone: | [phone] | | | | | hernia | [phone] | Fax: | | | | | Procedures | Fax: | [phone] | | | | | REQUEST TO | [phone] | | | | | | SURGERY | | | | | | | REAL ESTATE OFFICE MANAGER | | | | | | | [...] | | | | | obstruction | [place], | for Health | | | | | or gangrene | [place] | and Healing, | | | | | Abdominal | [address] | [address] | | | | | pain, | Phone: | [place], [place] | | | | | unspecified | [phone] | [address] | | | | | abdominal | Fax: | Phone: | | | | | location | [phone] | [phone] | | | | | Procedures | | Fax: | | | | | CONSULT TO | | [phone] | | | | | SURGERY - [...] | 2019 | Visit | Center at [facility] [address] | MD Jones [address] | without obstruction | | | | [address] [facility] | [address] | or gangrene (Primary | | | | for Health and | [place], [place] | Dx) | | | | Healing, [address] | [address] | | | | | [place], [place] | [phone] | | | | | [address] | | | | | | [phone] | | | +--------+---------+ + + + [...] (1?2 cup) 6.5 Avocado 1?2 fruit 2.1 [place] sprouts, cooked 125 mL (1?2 cup) 2.0 Figs, dried 60 mL (1?4 cup) 1.9 Guthrie 1 medium 1.8 Sweet Potato, cooked, without [...] 1.3 Eggplant 125 mL (1?2 cup) 1.3 Divide, with skin 1 medium 1.0-1.3 Peas, green, cooked 125 mL (1?2 cup) 0.8-1.3 Carrot, cooked John 125 mL (1?2 cup) 1?2 fruit 1.1-1.2 0.7-1.1 Grapefruit 1?2 fruit 0.7-1.1 Prunes, dried 3 1.1 [place], with skin 2 fruits 1.1 Apricots, dried [...] Bread, rye 35 g (1 slice) 0.6-1.0 Mora bread crackers 3 crackers 0.9 Raisin bran [...] of Soluble Fiber [email or web address] PATIENT SURGERY INFORMATION [facility] General Surgery Office Toll-free: ext [phone] Surgery [...] will be scheduled with you by a medical scheduler. You will receive a ca ll [...] ease call the General Surgery Office at [phone] for [id number]. Check-in on the day of surgery is at the Admitting Department located on the 9th floor of [facility]. DIET Nothing to eat or drink after [...] the surgery. Please see the list below, the [facility] has a list of products that contain [...] contact our office . Products Containing Aspirin Yuki-Bangor, Anacin, Anexsia with Codeine, Andynos, Aspirin, Aspirin suppositories, Ascrip tin, Aspergum, Axotal, B-A-C, Baby Aspirin, Lucila, BC Powder, Bexophene, Buffaprin, Bufferin , Buffinol, Cama-Arthritis Strength, Congespirin, [place], Coricidin, Damason, Darvon, Dristan, Kalani-Gesic, Digel, Dolprin #3 Tablets, Donatab, Doxaphene, Duragesic, Easprin, Ecotrin, Emag rin Forte, Emiprin, Emprazil, Equagesic, Equazine M, Excedrin, Fiogesic, Fiorgen PH, Fiorice t, Fiorinal, 4-Way Cold Tablet, Gemnisyn, Indocin, Liquprin, Lortab ASA, Magnaprin, Marnal, Meprobamate, Midol, Momentum, Norgesic, Slovan, Orphengesic, Pabalate, P-A-C, Percodan, Pre salin, Robaxasil, Roxiprin, Saleto, Salocol, SK-65 Compound, Sine-Aid, Sine-Off, Jack, Supac, Talwin Compound, Trigesic, Tolectin, Traiminicin, Vanquish, [...] Vitamin E, Gingko Biloba, Marine Fatty Acids, Moultrie-3 Fish Oil Supplement PRE-OP BATHING/SHOWER INSTRUCTIONS with [...] loss of tissue. Check out the free [place] Quit Line - The Quit Line is open 24 hours a day, seven days a we ek. The Quit Line is a telephone and web-based counseling service to help [place]ians quit us ing tobacco and nicotine products. .QUIT.NOW ( ) or www.quitnow.net/[place] PARKING Parking at the [facility] for patients and visitors is available in the [facility] located across from the emergency department. Patient parking is available on level 1 and 3. Metered parking is available on the top level. Parking at [facility] is available in the building's parking structure. For additional parking options visit [email or web address]. TRANSPORTATION You will require transportation home on the day of discharge. Pain medications and physical activity restrictions may limit your ability to drive safely. CANCELLING YOUR PROCEDURE Please notify the general surgery office at [phone] as soon as possible should you nee [...] lost 100+ lbs! She last saw the [facility] team in 02/2019, at which [...] plans to see an ENT and a burner machine operator for her symptoms in the [...] 8 [facility] Past Medical History: Diagnosis Date Abdominal [...] index of 70 and over in adult ([facility]) Myalgia and myositis Nausea Neck pain Numbness Osteoarthritis of knee Palpitations Pneumonia Shortness of breath Staphylococcal infection Stroke ([facility]) TIA (transient ischemic attack) due to [...] file Gets together: Not on file Attends worship service: Not on file Active member of club or organization: Not on file Attends meetings of clubs or organizations: Not on file Relationship status: Not on file Other Topics Concern Not on file Social History Narrative Updated 11/09/15 She lives in [place] with her mother and her sister (also her caregiver) lives in an apa rtment/duplex below. She has 2 grandchildren (age 4 and 7) who live with her daughter and son-in-law Her boyfriend lives in [place] HFpEF, DM2, HTN, Sleep Apnea (unable to tolerate CPAP), Hypothyroidism, Severe Obesity ([facility] lbs) Last seen [...] program here and refer her to our branch specialist who also has expertise in physical [...] daily. BELBUCA 600 mcg buccal film CALCIUM CRB&BJO-L5-KXE77-GENIS ORAL Take 2 tablets by mouth two [...] morbid obesity s/p laparoscopic anteocolic RYGB (03/01/2018); [facility] e this operation, she has lost [...] JONES TIWARI MD [facility] AT [address] Mailcode: [place] [address] I spent 31 minutes with [...] | | 2019 | sarahiduled | | MUSICIAN INSTRUMENTAL [address] | | | | | | [place], [place] | | | | | | [address] | | | | | | [phone] | | | | | | | | +--------+ + + + + documented as of this encounter Visit Diagnoses + + | Diagnosis | + + | Ventral hernia without obstruction or gangrene - Primary Ventral hernia, unspecified, | | without mention of obstruction or gangrene | + + documented in this encounter
--- OUTSIDE RECORDS SUMMARY | ~2020-03-23 | XMS | Encounter Summary ---
Demographics + + + | Address | [address] | | | [place] [address] | + + + | Home Phone [...] [place], [place] | | | | | [address] | | + + + + + | Ellie Vang | ECON | Unknown | | + + + + + Care Team Providers + +------+ + | Care Professor Of Floriculture Name | Role | Phone | + +------+ + | Fadi Goodrich DO | PCP | | + +------+ + Encounter Details +--------+------+ + + + | Date | Type | Department | Care Team | Description | +--------+------+ + + + | 08/28/ | Lab | Laboratory at [facility] | | Type 2 diabetes | | 2014 | | [address] | | mellitus (HCC) | | | | Center for Health | | | | | | and Healing, | | | | | | [address] | | | | | | [place], [place] | | | | | | [address] | | | | | | [phone] | | | +--------+------+ + + + [...] | | 2019 | sherrill | | CHAIN HOOKER [address] | | | | | | [place], [place] | | | | | | [address] | | | | | | [phone] | | | | | | | [...] [facility] | [address] | [place] [address] | | | LYDIA RANGEL | CLARENCE [...] | + + + + + | A[address] | [address] | [place] [address] | | | SERVICES, SPECIAL | PARK [...]
--- OUTSIDE RECORDS SUMMARY | ~2020-03-23 | XMS | Encounter Summary ---
Demographics + + + | Address | [address] | | | [place] [address] | + + + | Home Phone [...] [place], [place] | | | | | [address] | | + + + + + | Ellie Vang | ECON | Unknown | | + + + + + Care Team Providers + +------+ + | Care Laboratory Mechanical Technician Name | Role | Phone | + +------+ + | Fadi Goodrich DO | PCP | | + +------+ + Encounter Details +--------+ + + + + | Date | Type | Department | Care Team | Description | +--------+ + + + + | 10/05/ | Abstract | Digestive Health | Hernandez Brian, | | | 2012 | | [place] [address] [address] | [address] [facility] | | | | | [address] [facility] | [facility] | | | | | for Health and | [place], [place] | | | | | [facility] | [address] | | | | | [place], [place] | [phone] | | | | | [address] | | | | | | [phone] | | | +--------+ + + + [...] | | 2020 | sherrill | | MEAT SALES AND STORAGE MANAGER [address] | | | | | | [place] | | | | | | [address] | | | | | | [phone] | | | | | | | | +--------+ + + + + documented as of this encounter Visit Diagnoses Not on filedocumented in this encounter"
--- OUTSIDE RECORDS SUMMARY | ~2020-03-23 | XMS | Encounter Summary ---
Demographics + + + | Address | [address] | | | [place] [address] | + + + | Home Phone [...] [place], [place] | | | | | [address] | | + + + + + | Ellie Vang | ECON | Unknown | | + + + + + Care Team Providers + +------+ + | Care Ramp Service Employee Name | Role | Phone | + [...] 2019 | | Center at [facility] [address] | | | | | | [facility] | | | | | | for Health and | | | | | | [facility] 2 | | | | | | [place], [place] | | | | | | [address] | | | | | | [phone] | | | +--------+ + + + [...] AM PDT Elzbieta Thank you for choosing [facility] for your bariatric surgery, it is time to come in for a follow-up office visit. As you know, it is important to complete r egular follow-up visits so we can gather information and monitor your outcomes after surgery . The [facility] Bariatric Services is accredited by the Metabolic and Bariatric Surgery Accredita tion and Quality Improvement Program. Please don t hesitate to call if you have any questions. Please call the office at [phone] to schedule your follow up visit. Sincerely, [facility] Bariat[facility] [phone] documented in this encou nter Plan of Treatment +--------+ + + + + | Date | Type | Specialty | Care Team | Description | +--------+ + + + + | 04/04/ | Telephone-S | Surgery | Orquidea Cristobal, | | | 2019 | sherrill | | ENGINE TESTER [address] | | | | | | [place], [place] | | | | | | [address] | | | | | | [phone] | | | | | | | | +--------+ + + + + documented as of this encounter Visit Diagnoses Not on filedocumented in this encounter"
--- OUTSIDE RECORDS SUMMARY | ~2020-03-23 | XMS | Encounter Summary ---
Demographics + + + | Address | [address] | | | [place] [address] | + + + | Home Phone [...] [place], [place] | | | | | [address] | | + + + + + | Ellie Vang | ECON | Unknown | | + + + + + Care Team Providers + +------+ + | Care Restorer Paper And Prints Name | Role | Phone | + [...] | | | | | Procedures | [place], [place] | | | | | | TRANSTHORACI | [address] | | | | | | C | Phone: | | | | | | ECHOCARDIOGR | [phone] | | | | | | AM, ADULT | Fax: | | | | | | | [phone] | | +--------+--------+ + + + + [...] 11/05/ | Office | Cardiology | Randell Fransk, | SANAZ (dyspnea on | | 2016 | Visit | Preventive at [facility] | MD [address] | exertion) (Primary | | | | [address] | [place], [place] | Dx) | | | | [facility] | [address] | | | | | and Healing, | [phone] | | | | | [address] | | | | | | [place], [place] | | | | | | [address] | | | | | | [phone] | | | +--------+---------+ + + + [...] 500 mg by mouth once daily. CALCIUM CRB&BDC-X1-TLX62-GENIS ORAL Take 1 tablet by mouth two [...] himself to the local hospit al in [place] and so this has been delayed. ROS: [...] to lose the additional weight requested by [facility] bariatric surgery group. This current [...] | | 2019 | sherrill | | LOCATE TECHNICIAN [address] | | | | | | [place], [place] | | | | | | [address] | | | | | | [phone] | | | | | | | [...]
--- OUTSIDE RECORDS SUMMARY | ~2020-03-23 | XMS | Encounter Summary ---
Demographics + + + | Address | [address] | | | [place] [address] | + + + | Home Phone [...] [place], [place] | | | | | [address] | | + + + + + | Ellie Vang | ECON | Unknown | | + + + + + Care Team Providers + +------+ + | Care Memory Care Program Director Name | Role | Phone [...] | | 2015 | | Preventive at [facility] | MD [address] | (Phentermine) | | | | [address] | [place], [place] | | | | | [facility] | [address] | | | | | and [place], | [phone] | | | | | [place] [address] | | | | | | [place], [place] | | | | | | [address] | | | | | | [phone] | | | +--------+ + + + [...] to pharmacy elephone E ncounter - Rhona Mccullouhg MA - 11/01/2015 1:47 PM PDTWill route [...] | | 2019 | cheduled | | HEART SPECIALIST [address] | | | | | | [place], [place] | | | | | | [address] | | | | | | [phone] | | | | | | | | +--------+ + + + + documented as of this encounter Visit Diagnoses Not on filedocumented in this encounter"
--- OUTSIDE RECORDS SUMMARY | ~2020-03-23 | XMS | Encounter Summary ---
Demographics + + + | Address | [address] | | | [place] [address] | + + + | Home Phone [...] Providers + +------+ + | Care Railroad Crane Operator Name | Role | Phone [...] 2016 | on | Center at [facility] [address] | | | | | [address] [facility] | | | | | | for Health and | | | | | | Healing, [facility] 2 | | | | | | [place], [place] | | | | | | [address] | | | | | | [phone] | | | +--------+ + + + [...] | 2020 | sherrill | | MANAGER HOSPITALITY [address] | | | | | | [place], [place] | | | | | | [address] | | | | | | [phone] | | | | | | | | +--------+ + + + + documented as of this encounter Visit Diagnoses Not on filedocumented in this encounter"
--- OUTSIDE RECORDS SUMMARY | ~2020-03-23 | XMS | Encounter Summary ---
Demographics + + + | Address | [address] | | | [place] [address] | + + + | Home Phone [...] Team Providers + +------+ + | Care Freelance Programmer/App Developer Name | Role | Phone | [...] [place] | | | | | | [address] | [address] | | | [address], | Ave | | | | | | [address] | [place], [place] | | | | | | [place], [place] | [address] | | | | | | [address] | Phone: | | | | | | Phone: | [phone] | | | | | | [phone] | Fax: | | | | | | Fax: | [phone] | | | | | | [phone] | | +--------+--------+ + + + + Encounter Details +--------+---------+ + + + | Date | Type | Department | Care Team | Description | +--------+---------+ + + + | 08/29/ | Office | Cardiology | Randell Franks, | HTN (hypertension) | | 2013 | Visit | Preventive at [facility] | MD [address] | (Primary Dx); Type 2 | | | | [address] | [place], [place]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 | | | | [facility] | [address] | ([facility]); Morbid | | | | and Healing, | [phone] | obesity (HCC) | | | | [address] | | | | | | [place], [place] | | | | | | [address] | | | | | | [phone] | | | +--------+---------+ + + + [...] | | 2019 | cheduhipolito | | IMMUNOLOGY TEACHER [address] | | | | | | [place], [place] | | | | | | [address] | | | | | | [phone] | | | | | | | [...]
--- OUTSIDE RECORDS SUMMARY | ~2020-03-23 | XMS | Encounter Summary ---
Demographics + + + | Address | [address] | | | [place] [address] | + + + | Home Phone [...] [place], [place] | | | | | [address] | | + + + + + | Ellie Vang | ECON | Unknown | | + + + + + Care Team Providers + +------+ + | Care Joss House Keeper Name | Role | Phone | + +------+ + | Fadi Goodrich DO | PCP | | + +------+ + Encounter Details +--------+ + + + + | Date | Type | Department | Care Team | Description | +--------+ + + + + | 02/13/ | Abstract | Cardiology | Randell Franks, | | | 2015 | | Preventive at [facility] | MD [address] | | | | | [address] | [place], [place] | | | | | [facility] | [address] | | | | | and [place], | [phone] | | | | | [address] | | | | | | [facility] [place] | | | | | | [address] | | | | | | [phone] | | | +--------+ + + + [...] | | 2020 | cheduhipolito | | DOCUMENT CONTROL ASSOCIATE [address] | | | | | | [place], [place] | | | | | | [address] | | | | | | [phone] | | | | | | | | +--------+ + + + + documented as of this encounter Visit Diagnoses Not on filedocumented in this encounter"
--- OUTSIDE RECORDS SUMMARY | ~2020-03-23 | XMS | Encounter Summary ---
Demographics + + + | Address | [address] | | | [place] [address] | + + + | Home Phone [...] [place], [place] | | | | | [address] | | + + + + + | Ellie Vang | ECON | Unknown | | + + + + + Care Team Providers + +------+ + | Care Shirrer Name | Role | Phone | + [...] | | 2 diabetes | JEAN, | [place], [place] | | | | | mellitus | [place] [address] | [address] | | | | | without | Phone: | Phone: | | | | | complication | [phone] | [phone] | | | | | (HCC) | Fax: | Fax: | | | | | Procedures | [phone] | [phone] | | | | | AL EST | | | | | | [...] at [facility] | MD [address] | mellitus without | | | | [address] | [place], [place] | complication, with | | | | [facility] | [address] | long-term current | | | | and Healing, | [phone] | use of insulin (HCC) | | | | [address] | | (Primary Dx); | | | | [place], [place] | | Morbid obesity with | | | | [address] | | BMI of 70 and over, | | | | [phone] | | adult (HCC) | +--------+---------+ + [...] Note: Cannot tolerate CPAP Severe Morbid obesity ([facility]), BMI 88 11/12/2012 Priority: 4 Overview Note: [...] with BMI of 70 and over, adult ([facility]) 02/02/2017 Chronic diastolic heart failure (HCC) 02/02/2017 [...] 1 tablet by mouth once daily CALCIUM CRB&GGA-R1-VJE09-GENIS ORAL Take 2 tablets by mouth two [...] jeart failure is manag ed by her space and missile defense operations and she was seen by the bariatric [...] is currently being managed well by her Security Delivery Specialist with diuretics and main tenance of [...] management of her heart failure by her Security Delivery Specialist 3) Check A1c, lipids 4) Await [...] | | 2020 | sherrill | | INSTANT PRINTER OPERATOR [address] | | | | | | [place], [place] | | | | | | [address] | | | | | | [phone] | | | | | | | [...] [facility] | [address] | [place], [place] | | | SERVICES, LIPID | [address] | [address] | | + + + + + [...] [facility] | | considered for monitoring intermediate school teacher glycemic control in patients with: | LABORATORY [...] + + + | [facility] | [address] | [place] [address] | | | SERVICES, SPECIAL | CLARENCE [...] with BMI of 70 and over, adult ([facility]) | + + documented in this encounter
--- OUTSIDE RECORDS SUMMARY | ~2020-03-23 | XMS | Encounter Summary ---
Demographics + + + | Address | [address] | | | [place] [address] | + + + | Home Phone [...] | Organization | [facility] [...] Team Providers + +------+ + | Care Refrigerating Machine Operator Name | Role | Phone [...] | | | | without | [place] [address] | [place] | | | | | aura, | Phone: | [phone] | | | | | intractable, | [phone] | Phone: | | | | | without | Fax: | [phone] | | | | | status | [phone] | Fax: | | | | | migrainosus | | [phone] | + +--------+ + + + + Encounter Details +--------+ + + + + | Date | Type | Department | Care Team | Description | +--------+ + + + + | 01/23/ | Virtual | [facility] | Camille De La Paz, | Intractable chronic | | 2020 | Office | NEUROLOGY [address] | common migraine | | | Visit | [address] | [address] | without aura | | | | [place], [place] | [place] [address] | (Primary Dx); | | | | [address] | [phone] | Medication overuse | | | | [phone] | | headache | +--------+ + + [...] information carefully each time. Talk to your pipe changer regarding the use of this medicine in children. While this drug m ay be prescribed for children as young as 3 years for selected conditions, precautions do ap ply. What side effects may I notice from receiving this medicine? Side effects that you should report to your doctor or health day care home provider as soon as p ossible: allergic reactions like skin rash, itching or hives, swelling of the face, lips, or tong ue breathing problems suicidal thoughts, mood changes Side effects that usually do not require medical attention (report to your doctor or health day care home provider if they continue or are bothersome): dizziness [...] this medicine? Visit your doctor or health day care home provider for regular checks on your progress. You may want to keep a record at home of how you feel your condition is responding to treatment. You may want to share this information with your doctor or health day care home provider at each vis it. You should contact your doctor or health day care home provider if your seizures get worse or if you have any new types of seizures. Do not stop taking this medicine or any of your seiz ure medicines unless instructed by your doctor or health day care home provider. Stopping your me dicine suddenly can increase [...] dying should be reported to your health day care home provider right away. Women who become while using this medicine may enroll in the [place] Antiep ileptic Drug Registry by calling . This registry collects informatio n about the safety of antiepileptic drug use during . NOTE:This sheet is a summary. It may not cover all possible information. If you have questi ons about this medicine, talk to your doctor, pharmacist, or health care provider. Copyright 2020 [employer] documented in this encounter Progress Notes Camille De La Paz MD - 01/24/2020 7:45 AM PDTFormatting of this note might be different f rom the original. This exam was initially conducted via a secure 256-bit AES encrypted bidirectional video se ssion. This visit was converted to virtual visit due to COVID-19 pandemic. Service was provided ohqi-ia-qkdy with the patient via interactive videoconferencing Video start time 808 am Video end time 842 am Total time (in minutes) 45+ minutes including review of records, face to face time, documen tation including orders and finalizing care plan You have chosen to receive care through the use of telemedicine. Telemedicine enables [facility] care providers at different locations to provide [...] a 44 yo R handed lady from [place], [place] She has a h/o stroke at [...] mg daily.), Disp: 30 tablet, Rfl: 11 Qzcfbqn-Rblbwexod-Owdzwvy D (CITRACAL CALCIUM+D PO), Take 4 tablets [...] tablets qhs, Disp : , Rfl: rizatriptan (MAXALT-DIE STORAGE CLERK) 5 mg disintegrating tablet, Take 5 mg by mouth as needed for Migraine. May repeat in 2 hours if needed, Disp: , Rfl: spironolactone (ALDACTONE) 50 mg tablet, Take 50 mg by mouth Daily., Disp: , Rfl: thyroid (MANAGER HOME IMPROVEMENT THYROID) 30 mg tablet, MANAGER HOME IMPROVEMENT Thyroid 30 mg tablet TAKE ONE TABLET [...] [address] | | | | | | [place] [address] | | | | | | [phone] | | | | | | | | +--------+ + + + + | 04/18/ | Procedure | Neurology | Camille De La Paz, | | | 2019 | visit | | MD [address] | | | | | | [address] | | | | | | [place] [address] | | | | | | [phone] | | | | | | | | +--------+ + + + + documented as of this encounter Visit Diagnoses + + | Diagnosis | + + | Intractable chronic common migraine without aura - Primary | + + | Medication overuse headache Drug induced headache, not elsewhere classified | + + documented in this encounter
--- OUTSIDE RECORDS SUMMARY | ~2020-03-23 | XMS | Encounter Summary ---
Demographics + + + | Address | [address] | | | [place] [address] | + + + | Home Phone [...] + +------+ + | Care Childcare Center Director Name | Role | Phone | + +------+ + PCP | Unavailable | + +------+ + Encounter Details +--------+ + + + + | Date | Type | Department | Care Team | Description | +--------+ + + + + | 12/07/ | Orders Only | [facility] | Conversion | | | 2018 | | NEPHROLOGY [place] | Transaction, | | | | | [address] | Provider Unknown | | | | | [address] [place], [place] | | | | | | [address] | (Fax) | | | | | [phone] | | | +--------+ + + + [...] | | | | | | [place] [address] | | | | | | [phone] | | | | | | | | +--------+ + + + + | 04/18/ | Procedure | Neurology | Camille De La Paz, | | | 2019 | visit | | MD [address] | | | | | | [address] | | | | | | [place] [address] | | | | | | [phone] | | | | | | | [...] | | | LAB | | | Algerian | | | | | + +-------+ [...]
--- OUTSIDE RECORDS SUMMARY | ~2020-03-23 | XMS | Encounter Summary ---
Demographics + + + | Address | [address] | | | [place] [address] | + + + | Home Phone [...] [place], [place] | | | | | [address] | | + + + + + | Ellie Vang | ECON | Unknown | | + + + + + Care Team Providers + +------+ + | Care Steam Shovel Runner Name | Role | Phone | [...] [facility] | Chilo | Yamil | | 2019 | | Center at [facility] [address] | MD [address] | | | | | [facility] | [facility] | | | | | [facility] and | [place], [place] | | | | | [place] [address] | [address] | | | | | [place], [place] | [phone] | | | | | [address] | | | | | | [phone] | | | +--------+ + + + [...] | | 2020 | abrahamled | | PROFESSIONAL HEALTHCARE REPRESENTATIVE [address] | | | | | | [place], [place] | | | | | | [address] | | | | | | [phone] | | | | | | | | +--------+ + + + + documented as of this encounter Visit Diagnoses Not on filedocumented in this encounter"
--- OUTSIDE RECORDS SUMMARY | ~2020-03-23 | XMS | Encounter Summary ---
Demographics + + + | Address | [address] | | | [place] [address] | + + + | Home Phone [...] [place], [place] | | | | | [address] | | + + + + + | Ellie Vang | ECON | Unknown | | + + + + + Care Team Providers + +------+ + | Care Vice President Of Product Marketing Name | Role | Phone | + +------+ + | Fadi Goodrich DO | PCP | | + +------+ + Encounter Details +--------+ + + + + | Date | Type | Department | Care Team | Description | +--------+ + + + + | 03/04/ | Telephone | Digestive Health | Ion Pandey, | | | 2018 | | Center at [facility] [address] | MD [address] | | | | | [address] | [place], [place] | | | | | [facility] and | [address] | | | | | Healing, [facility] 2 | | | | | | [place], [place] | | | | | | [address] | | | | | | | [...] | | 2019 | cheduled | | PERFECT BINDER SETTER [address] | | | | | | [place], [place] | | | | | | [address] | | | | | | [phone] | | | | | | | | +--------+ + + + + documented as of this encounter Visit Diagnoses Not on filedocumented in this encounter
--- OUTSIDE RECORDS SUMMARY | ~2020-03-23 | XMS | Clinical Summary ---
Demographics + + + | Address | [address] | | | [place] [address] | + + + | Home Phone [...] [place], [place] | | | | | [address] | | + + + + + | Ellie Vang | ECON | Unknown | | + + + + + Care Team Providers + +------+ + | Care It Manager Name | Role | Phone | + +------+ + | Jorje Hill MD | PCP | | + +------+ + Source Comments KALEYORIN is fully live on both EpicCare Ambulatory and EpicCare InPatient.[facility] Allergies + + + + + + [...] 0 | | | Activ | | CRB&SDM-Y8-RWA20-GEN | mouth two times | | | [...] | + + + +---+------+---+-------+ | thyroid (INSTRUCTIONAL TECHNOLOGY COORDINATOR | Take 30 mg by mouth [...] | | 2020 | cheloveled | | LAWNMOWER MECHANIC [address] | | | | | | [place], [place] | | | | | | [address] | | | | | | [phone] | | | | | | | [...] - | | | | | | /[id number] | | [id number]: Qty: 1 on | | | | | | 525 | | 03/01/2018 by Ion Pandey | | | | | | | | MD Vinicius at [facility] | | | | | [...] - | | | | | | /[id number] | | [id number]: Qty: 1 on | | | | | | 173 | | 03/01/2018 by Ion Pandey | | | | | | | | MD Vinicius at [facility] | | | | | [...] | | | + +--------+ +--------+-------+---------+--------+ | MACHINIST JOB SETTER MEDICAID | MACHINIST JOB SETTER | [id number] | | | | Medica | | [...] mireya | | | 3 (Home) | [address] | + +--------+ +--------+ + + Advance [...]
--- OUTSIDE RECORDS SUMMARY | ~2020-03-23 | XMS | Encounter Summary ---
Demographics + + + | Address | [address] | | | [place] [address] | + + + | Home Phone [...] [place], [place] | | | | | [address] | | + + + + + | Ellie Vang | ECON | Unknown | | + + + + + Care Team Providers + +------+ + | Care Freight Coordinator Name | Role | Phone | [...] | | | | | obesity | [place], [place] | | | | | | ([facility]) | [address] | | | | | | Procedures | Phone: | | | | | | PHYSICAL | | | | | | | THERAPY | Fax: | | | | | | REFERRAL | [phone] | | +--------+--------+ + + + + Encounter Details +--------+ + + + + | Date | Type | Department | Care Team | Description | +--------+ + + + + | 06/22/ | Physical Biochemist | Digestive Health | Ion Pandey, | Pre-op evaluation | | 2016 | | Center at [facility] [address] | [address] | (Primary Dx); Morbid | | | | [address] | [facility] [place] | obesity (HCC) | | | | for Health and | [address] | | | | | Healing, [address] | | | | | | [place], [place] | | | | | | [address] | | | | | | [phone] | | | +--------+ + + + [...] has been successf ully sent to [facility] at [phone]. From: Gris Fontana RN-BSLoretta, ANGELITON Account: [id number] Matter: [id number] 06/22/2017 2:58:44 PM Transmission Record Sent to [id number] with remote ID "[id number]" Result: ([id number];0/0) Success Page record: Elapsed time: 09:29 on channel 15 documented in this encounter Plan of Treatment +--------+ + + + + | Date | Type | Specialty | Care Team | Description | +--------+ + + + + | 04/04/ | Telephone-S | Surgery | Orquidea Cristobal, | | | 2020 | sherrill | | RANGE FEEDER [address] | | | | | | [place], [place] | | | | | | [address] | | | | | | [phone] | | | | | | | | +--------+ + + + + documented as of this encounter Visit Diagnoses + + | Diagnosis | + + | Pre-op evaluation - Primary Preoperative examination, unspecified | + + | Morbid obesity (HCC) Morbid obesity | + + documented in this encounter
--- OUTSIDE RECORDS SUMMARY | ~2020-03-23 | XMS | Encounter Summary ---
Demographics + + + | Address | [address] | | | [place] [address] | + + + | Home Phone [...] + | Katalina Padilla | ECON | [address] | | | | | [place], [place] | | | | | [address] | | + + + + + | Ellie Vang | ECON | Unknown | | + + + + + Care Team Providers + +------+ + | Care Clinical Account Manager Name | Role | Phone [...] | | [address] | [place], [place] | ) | | | | [facility] | [address] | | | | | and Healing, | [phone] | | | | | [address] | | | | | | [place], [place] | | | | | | [address] | | | | | | [phone] | | | +--------+--------+ + + + [...] breakfast. Patient Last Seen: Last Appointment in [facility] was on 04/03/15 at 10:40 am wit samantha Franks MD. Follow Up Plan: Next Appointment in [facility] is on 11/06/15 at 11:20 am with Jessica Franks MD. Please review and sign if appropriate elephone Encounter - Deepti Richardson - 10/30/2015 4:41 PM PDTPharmacy Preference: [facility] ([facility] nam e and location) [...] medication Best number to reach patient today: [phone] Best time to reach the patient is [...] | | 2020 | sherrill | | ROLLER HAND [address] | | | | | | [place], [place] | | | | | | [address] | | | | | | [phone] | | | | | | | | +--------+ + + + + documented as of this encounter Visit Diagnoses Not on filedocumented in this encounter"
--- OUTSIDE RECORDS SUMMARY | ~2020-03-23 | XMS | Encounter Summary ---
Demographics + + + | Address | [address] | | | [place] [address] | + + + | Home Phone [...] + | Author | [facility] | | | and Jeffana | + + + | Organization | [facility] | | | and [...] Team Providers + +------+ + | Care Light Out Examiner Name | Role | Phone | + +------+ + PCP | Unavailable | + +------+ + Encounter Details +--------+ + + + + | Date | Type | Department | Care Team | Description | +--------+ + + + + | 12/23/ | Orders Only | [facility] | Conversion | | | 2016 | | NEPHROLOGY [place] | Transaction, | | | | | [address] | Provider Unknown | | | | | [address] [place], [place] | | | | | | [address] | (Fax) | | | | | [phone] | | | +--------+ + + + [...] | | | | | | [place] [address] | | | | | | [phone] | | | | | | | | +--------+ + + + + | 04/18/ | Procedure | Neurology | Camille De La Paz, | | | 2019 | visit | | MD [address] | | | | | | [address] | | | | | | [place] [address] | | | | | | [phone] | | | | | | | [...]
--- OUTSIDE RECORDS SUMMARY | ~2020-03-23 | XMS | Encounter Summary ---
Demographics + + + | Address | [address] | | | [place] [address] | + + + | Home Phone [...] | Organization | [facility] [...] Team Providers + +------+ + | Care Steersman Name | Role | Phone | + +------+ + PCP | Unavailable | + +------+ + Encounter Details +--------+ + + + + | Date | Type | Department | Care Team | Description | +--------+ + + + + | 11/04/ | Orders Only | [facility] | Conversion | | | 2016 | | NEPHROLOGY [place] | Transaction, | | | | | [address] | Provider Unknown | | | | | [address] [place], [place] | | | | | | [address] | (Fax) | | | | | [phone] | | | +--------+ + + + [...] | | | | | | [place] [address] | | | | | | [phone] | | | | | | | | +--------+ + + + + | 04/18/ | Procedure | Neurology | Camille De La Paz, | | | 2019 | visit | | MD [address] | | | | | | [address] | | | | | | [place] [address] | | | | | | [phone] | | | | | | | [...]
--- OUTSIDE RECORDS SUMMARY | ~2020-03-23 | XMS | Encounter Summary ---
Demographics + + + | Address | [address] | | | [place] [address] | + + + | Home Phone [...] Providers + +------+ + | Care Fiber Optic Technician Name | Role | Phone | [...] | | 2014 | | Center at [facility] [address] | [facility], [address] | | | | | [facility] | [address] | | | | | [facility] and | [place], [place] | | | | | [place] [address] | [address] | | | | | [place], [place] | [phone] | | | | | [address] | | | | | | [phone] | | | +--------+ + + + [...] be of any assistance. [address], [facility], [place] Pager# [phone] documented i n this encounter Plan of Treatment +--------+ + + + + | Date | Type | Specialty | Care Team | Description | +--------+ + + + + | 04/04/ | Telephone-S | Surgery | Orquidea Crisotbal, | | | 2019 | cheduled | | GEOPHYSICAL PROSPECTOR [address] | | | | | | [place], [place] | | | | | | [address] | | | | | | [phone] | | | | | | | | +--------+ + + + + documented as of this encounter Visit Diagnoses Not on filedocumented in this encounter"
--- OUTSIDE RECORDS SUMMARY | ~2020-03-23 | XMS | Encounter Summary ---
Demographics + + + | Address | [address] | | | [place] [address] | + + + | Home Phone [...] [place], [place] | | | | | [address] | | + + + + + | Ellie Vang | ECON | Unknown | | + + + + + Care Team Providers + +------+ + | Care Hospice Consultant Name | Role | Phone | [...] | | | | [address] [place] | [place], [place] | | | | | [facility] and | [address] | | | | | [facility] 2 | [phone] | | | | | [place], [place] | | | | | | [address] | | | | | | [phone] | | | +--------+ + + + [...] | | 2020 | chesteve | | RETAIL SALES ASSOCIATE SEASONAL [address] | | | | | | [place], [place] | | | | | | [address] | | | | | | [phone] | | | | | | | | +--------+ + + + + documented as of this encounter Visit Diagnoses Not on filedocumented in this encounter"
--- OUTSIDE RECORDS SUMMARY | ~2020-03-23 | XMS | Encounter Summary ---
Demographics + + + | Address | [address] | | | [place] [address] | + + + | Home Phone [...] + | Author | [facility] | | | and Jeffana | + + + | Organization | [facility] | | | [...] Providers + +------+ + | Care Project Production Engineer Name | Role | Phone | [...] + + | 01/04/ | Documentati | [facility] | Bassam, | Results (01/04/20) | | 2020 | on | NEPHROLOGY [place] | [facility] | | | | | [address] | Marine Engine Machinist | | | | | [address] [place] | | | | | | [address] | | | | | | [phone] | | | +--------+ + + + [...] [address] | | | | | | [place] [address] | | | | | | [phone] | | | | | | | | +--------+ + + + + | 04/18/ | Procedure | Neurology | Camille De La Paz, | | | 2019 | visit | | [address] | | | | | | [address] | | | | | | [place] [address] | | | | | | [phone] | | | | | | | [...]
--- OUTSIDE RECORDS SUMMARY | ~2020-03-23 | XMS | Encounter Summary ---
Demographics + + + | Address | [address] | | | [place] [address] | + + + | Home Phone [...] Team Providers + +------+ + | Care Icu Registered Nurse Name | Role | Phone | + +------+ + PCP | Unavailable | + +------+ + Encounter Details +--------+ + + + + | Date | Type | Department | Care Team | Description | +--------+ + + + + | 02/14/ | Orders Only | [facility] | Augustine Fu MD | | | 2015 | | NEPHROLOGY [place] | [address] | | | | | [address] | [address] [place], [place] | | | | | [place] | [address] | | | | | [address] | | | | | | [phone] | | | +--------+ + + + [...] [address] | | | | | | [place] [address] | | | | | | [phone] | | | | | | | | +--------+ + + + + | 04/18/ | Procedure | Neurology | Camille De La Paz | | | 2019 | visit | | MD [address] | | | | | | [address] | | | | | | [place] [address] | | | | | | [phone] | | | | | | | [...]
--- OUTSIDE RECORDS SUMMARY | ~2020-03-23 | XMS | Encounter Summary ---
Demographics + + + | Address | [address] | | | [place] [address] | + + + | Home Phone [...] [place], [place] | | | | | [address] | | + + + + + | Ellie Vang | ECON | Unknown | | + + + + + Care Team Providers + +------+ + | Care Stain Applicator Name | Role | Phone | [...] 2019 | | Preventive at [facility] | [address] | re-test? ) | | | | [address] | [place], [place] | | | | | [facility] | [address] | | | | | and [place], | [phone] | | | | | [address] | | | | | | [place], [place] | | | | | | [address] | | | | | | [phone] | | | +--------+ + + + [...] and acknowledged the instructions. Orders faxed to [facility] in [facility] for collection local to the patient. Electronically [...] do not yet have an appointment in [facility] clinic, route to the clinic manager of the discharging distance learning administrator. See discharge summary for i nformation~~~ elephone [...] up with provider to help determine if [facility] lab work is required. Telephone Encounter - [...] | | 2019 | sherrill | | ALTERNATIVE DISPUTE RESOLUTION MEDIATOR [address] | | | | | | [place], [place] | | | | | | [address] | | | | | | [phone] | | | | | | | | +--------+ + + + + documented as of this encounter Visit Diagnoses + + | Diagnosis | + + | Hypothyroidism, unspecified type - Primary | + + documented in this encounter"
--- OUTSIDE RECORDS SUMMARY | ~2020-03-23 | XMS | Encounter Summary ---
Demographics + + + | Address | [address] | | | [place] [address] | + + + | Home Phone [...] [place], [place] | | | | | [address] | | + + + + + | Ellie Vang | ECON | Unknown | | + + + + + Care Team Providers + +------+ + | Care Ukrainian Folk Arts Instructor Name | Role | Phone [...] Anesthesia | 6A Intra Op [address] | Michelle Enriquez | | | 2015 | Event | [address] | RMD [address] | | | | | [facility] | [address] | | | | | Hospital Admitting | [place], [place] | | | | | Desk Located on the | [address] | | | | | 9th floor | [phone] | | | | | [place], [place] | | | | | | [address] | Nitin Brunner CRNA | | | | | | [address] | | | | | | Lesly Gutiérrez [facility] | | | | | | [place] [address] | | | | | | [phone] | | | | | | | | +--------+ + + + + Anesthesia Record + + + + + | Procedure Name | Responsible | Anesthesia Start | Anesthesia Stop Time | | | Anesthesiologist | Time | | + + + + + | INCISIONAL HERNIA | Michelle Enriquez, | 03/01/15 0951 | 03/01/15 1213 [...] encounter [place] Notes Anesthesia Postprocedure Evaluation - Maegan Dorsey CRNA - 03/02/2015 10:08 AM PDTF ormatting of this note might be different from the original. Elzbieta Cristina [id number] Allergies Allergen Reactions Amoxicillin Benadrilina [Diphenhydramine Hcl] Hives Parlodel [Bromocriptine] Unknown Blood clots Past Surgical History Procedure Laterality Date Tonsillectomy and adenoidectomy Appendectomy, open 2010 Umbilical hernia repair 2010 Treatment of ankle fracture with screws remaining Incision and drainage of wound abscess x2 midline transverse wound s/p open appendectomy 2010 Ventral hernia repair 10/2012 Dr. Andie Brian Temp: 36.6 C (97.9 F) Pulse: 92 Resp: 20 BP: 108/60 mmHg SpO2: 91 % Evaluation Patient personally seen and evaluated for recovery from anesthesia care, VS including tempe rature and hydration status are normal and ROS including card, resp, Neuro, and GI w/o evide nce of adverse effects Complications nesthesia Pre procedure Evaluation - Michelle Enriquez MD - 03/01/2015 9:50 AM PDTFormatting of this no te might be different from the original. Elzbieta Cristina [id number] Allergies Allergen Reactions Amoxicillin Benadrilina [Diphenhydramine Hcl] Hives Parlodel [Bromocriptine] Unknown Blood clots NPO:NPO Status: MN Last Vitals: Temp: 36.5 C (97.7 F) Pulse: 78 Resp: 20 BP: 112/62 mmHg SpO2: 98 % O2 Delivery Device: None (room air) Preg Status/LMP: Patient Active Problem List Diagnosis Hernia Morbid obesity Type 2 diabetes mellitus AMARA (obstructive sleep apnea) Edema GERD (gastroesophageal reflux disease) Vitamin D deficiency disease Intertriginous candidiasis HTN (hypertension) Skin breakdown Anemia Decreased mobility Hypoventilation associated with obesity PCOS (polycystic ovarian syndrome) Ventral hernia Migraine headache Abdominal pain Hypothyroidism Diabetes mellitus with insulin therapy Past Surgical History Procedure Laterality Date Tonsillectomy [...] daily as needed for anxiety. ASCORBIC ACID 500 MG TABLET Take 500 mg by mouth once daily. 08/28/2014 CALCIUM CRB&[id number]-[id number]-GENIS ORAL Take 1 tablet by mouth two times daily. ERGOCALCIFEROL (VITAMIN D2) 50,000 UNIT CAPSULE Take 50,000 Units by mouth twice weekly (on Thursday and ). 08/28/2014 FLUOXETINE 40 MG CAPSULE Take 40 mg by mouth once daily. 08/27/2014 HUMULIN 70/30 SUBQ Inject 50 cc under the skin (SUBC) once daily. 08/27/2014 MAGNESIUM OXIDE 400 MG TABLET Take 400 mg by mouth once daily. METFORMIN 1,000 MG TABLET Take 1,000 mg by mouth once daily. 08/28/2014 ZYPREXA ORAL Take 30 mg by mouth once daily. 08/27/2014 OXYCODONE-ACETAMINOPHEN 5 MG-325 MG TABLET Take 1 tablet by mouth every four hours as neede d for severe pain. Not to exceed 10 tablets per any 24 hour period. PHENTERMINE 37.5 MG TABLET Take 1 tablet by mouth once daily in the morning. Administer bef ore breakfast. PIROXICAM 20 MG CAPSULE Take 20 mg by mouth once daily. 08/27/2014 POTASSIUM CHLORIDE ER 10 MEQ TABLET,EXTENDED RELEASE(PART/CRYST) Take 10 mEq by mouth once daily. PSEUDOEPHEDRINE 60 MG TABLET Take 120 mg by mouth two times daily. RANITIDINE 300 MG TABLET Take 300 mg by mouth once daily at bedtime. 08/27/2014 SENNOSIDES-DOCUSATE SODIUM 8.6 MG-50 MG TABLET Take 1 Tab by mouth two times daily. 5 THYROID (PORK) 30 MG TABLET Take 30 mg by mouth once daily. 08/28/2014 TOPIRAMATE 100 MG TABLET Take 1 tablet by mouth two times daily. 08/28/2014 TORSEMIDE ORAL Take 40 mg by mouth two times daily. 08/27/2014 TRAZODONE 150 MG TABLET Take 150 mg by mouth once daily at bedtime. 08/27/2014 Lab Results Component Value Date RATE 96 11/06/2012 ATRIALRATE 96 11/06/2012 FL 164 11/06/2012 QRS 92 11/06/2012 QT 376 11/06/2012 QTC 475 11/06/2012 PAXIS 35 11/06/2012 RAXIS 60 11/06/2012 TAXIS 45 11/06/2012 EKGDX Value: Normal sinus rhythm Normal ECG "I have personally interpreted this report, e ither alone or with a trainee." Confirmed by CARINA SMITH ([id number]) on 11/06/2012 3:29:04 PM Preoperative Adult Anesthesia Plan Last edited 03/01/15 5842 by Michelle Enriquez MD ROS Pertinent HPI: Pulmonary: Within Defined Limits except as noted below No dx of sleep apnea Risks factors for sleep apnea: BMI>35 and Neck circumference> 40 cm Cardiovascular: Functional Capacity: Low no CAD hypertension well controlled no pacemaker GI/Hepatic: GERD Control: Well controlled : Endo: Neurological: Current Pain Level: MS: Heme/Onc: Skin: Physical Exam General: Patients general appearance: Alert Head & Neck/Airway: Neck ROM: full TM Distance:< 6cm Dentition: dentition is normal Dental risk discussed with/pt : Yes Mallampati: II Mouth Opening: > = 3 cm C-Spine: normal Neck Anatomy: Normal Jaw Protrusion: Normal, lower incisors can protrude past upper incisors Lung Exam: breath sounds normal Cardiac: Rhythm: regular Rate: normal Abdominal: Musculoskeletal: Neuro/Psych: Integument: Implants: [id number] Anesthesia Plan Comments ASA ASA 3 NPO Status NPO Status: NPO by protocol Monitors/Lines to be used Standard Anesthetic Consideration Induction intravenous induction Anesthetic Technique General; Post-Op Pain Plan IV analgesics; Postop Block Consent: Pt consented for postop block Blood Products Interpretive Services Informed Consent PARQ discussed with: patient, Procedures, Alternatives, Risks, and Questions discussed and Risk/benefit of anesthesia plan and blood product discussed ; ; Date Consent Series Given: 03/01/2015 9:50 AM Code status in [place] Patients Code Status in OR: FULL 03/01 9:50 AM documented in this encounter Miscellaneous Notes Ane airway standard - Nitin Brunner CRNA - 03/01/2015 10:55 AM PDTProcedure Reason for Intubation: For surgical procedure, Location Performed: [place] , Patient was preoxyg enated Mask Ventilation Grade 2 - Ventilated by mask with oral airway/adjuvant Rapid Sequence Induction: No Intubation Blade type: Mario , Blade size: 3, Atraumatic laryngoscopy: Atraumatic Laryngoscopy, In tubation adjuncts: N/A and Ramp , Laryngoscopic view: Grade I, Fiberoptics used: N/A , Numbe r of Attempts: 1, Positive for EtCO2: Yes, Breath sounds: Bilateral and equal ETT Ett Adult: Single-lumen cuffed ETT Size: 7 ETT secured with: adhesive tape Depth at Lip: 20 cm LMA Narrative Attending physically present Attending: MICHELLE ENRIQUEZ Performed by NITIN OSORIO High ramp used to put patient in sniffing patient. Easy mask, Easy intubation. MC/ANE PreOp Note - Michelle Enriquez MD - 03/01/2015 9:48 AM PDT ROS Pertinent HPI: Pulmonary: Within Defined Limits except as noted below No dx of sleep apnea Risks factors for sleep apnea: BMI>35 and Neck circumference> 40 cm Cardiovascular: Functional Capacity: Low no CAD hypertension well controlled no pacemaker GI/Hepatic: GERD Control: Well controlled : Endo: Neurological: Current Pain Level: MS: Heme/Onc: Skin: Physical Exam General: Patients general appearance: Alert Head & Neck/Airway: Neck ROM: full TM Distance:< 6cm Dentition: dentition is normal Dental risk discussed with/pt : Yes Liz mpati: II Mouth Opening: > = 3 cm C-Spine: normal Neck Anatomy: Normal Jaw Protrusion: Norm al, lower incisors can protrude past upper incisors Lung Exam: breath sounds normal Cardiac: Rhythm: regular Rate: normal Abdominal: Musculoskeletal: Neuro/Psych: Integument: Implants: documented in this encounter Plan of Treatment +--------+ + + + + | Date | Type | Specialty | Care Team | Description | +--------+ + + + + | 04/04/ | Telephone-S | Surgery | Orquidea Cristobal, | | | 2019 | sherrill | | SUPERVISOR EDUCATION [address] | | | | | | [place], [place] | | | | | | [address] | | | | | | [phone] | | | | | | | [...]
--- OUTSIDE RECORDS SUMMARY | ~2020-03-23 | XMS | Encounter Summary ---
Demographics + + + | Address | [address] | | | [place] [address] | + + + | Home Phone [...] [place], [place] | | | | | [address] | | + + + + + | Ellie Vang | ECON | Unknown | | + + + + + Care Team Providers + +------+ + | Care Physical Education Aide Name | Role | Phone | [...] | | | | | | [facility] | | | | | | | [facility] and | | | | | | | Healing, | | | | | | | Building [address] | | | | | | | [place], [place] | | | | | | | [address] | | | | | | | Phone: | | | | | | | [phone] | | | | | | | Fax: | | | | | | | [phone] | +--------+--------+ + + + + Encounter Details +--------+---------+ + + + | Date | Type | Department | Care Team | Description | +--------+---------+ + + + | 06/16/ | Office | Digestive Health | Shereen Georges, | Morbid obesity with | | 2012 | Visit | Center at [facility] [address] | ACNP [address] | BMI of 70 and over, | | | | [address] | Ave [place], [place] | adult (HCC) (Primary | | | | for Health and | [address] | Dx); Vitamin D | | | | Healing, [address] | | deficiency disease; | | | | [place], [place] | | Intertriginous | | | | [address] | | candidiasis; | | | | [...] Psychological Evaluation: If your referral is at [facility], pain management will call y ou in [...] the time. If your referral is at [facility], they will call y ou in the next week to schedule. She will arrange 8. Nephrology Consult: Please call [facility] ([phone]) and have them send you a urine specimen container. You will need to discuss your kidney stone risk with a nephrology provid er prior to proceeding with gastric bypass. If your referral is at [facility], they will call you in the [...] at the same time: betsy Feldman RN, TIRE CENTER SUPERVISOR- Nurse Practitioner for Bariatric Surgery [facility] | [address] | [place], [place] | [address] | Potential Contraindications to Bariatric Surgery Age [...] other providers does not guarantee that the [facility] Bariatric Surger y program will deem you a surgical candidate. documented in this encounter Progress Notes Shereen Pinto ACNP - 06/16/2013 1:28 PM PSTFormatting of this note might be different fro m the original. BARIATRIC INITIAL VISIT Provider: Shereen Pinto DNP, DANIELLEP, TIRE CENTER SUPERVISOR Referring Provider: Dr. Fadi Goodrich, [place] [phone] Reason for Requested Consultation: Initial evaluation for bariatric surgery. Elzbieta Farooq is interested in Frandy en y alfredo tomeka bypass. The pt is here With her sister. Following surgery her mother and sister will care for her, she will Stay in [place] after surgery so that she is close by. She lives in [place]. They have few stairs to get into [...] recently gained weight, she met with our criminal analyst today, she has been making poor food [...] none Use of Redux or Phen/fen: no Sikh or cultural reason you would refuse blood [...] as well , hypertension, hyperlipidemia. Denies CHF, MA, ischemic heart disease, DVT/PE, or pulmonary hypertension. [...] the therapy. 8. Nephrology Consult: Please call [facility] ([phone]) and have them send you a urine specimen container. You will need to discuss your kidney stone risk with a nephrology provid er prior to proceeding with gastric bypass. If your referral is at [facility], they will call you in the next week to schedule. You are at increased risk of renal stones after surgery, with your history of stone, we want to check of oxalate in your urine. You will need a referral to a force variation equipment tender If your level is elevated. 9. See [...] soon as possible Shereen Pinto DNP ACNP, TIRE CENTER SUPERVISOR Nurse Practitioner for Bariatric Surgery [facility] | [address] | [place], [place] | [address] | Potential Contraindications to Bariatric Surgery Age [...] other providers does not guarantee that the [facility] Bariatric Surger y program will deem [...] | | 2019 | sherrill | | TIRE CENTER SUPERVISOR [address] | | | | | | [place], [place] | | | | | | [address] | | | | | | [phone] | | | | | | | [...] | | | | | | by [facility] [place],[address] | | | | | | Liliana Martinez, [facility] | | | | | | [address] | | | | | | [phone].[phone]. | | | | | | com, [...] at | | | | | | [employer] | | | | | | developed and | | | | | | characteristics | | | | | | determined by | | | | | | [employer]. See | | | | | | Compliance Statement B: | | | | | | [employer]/CS | | | | + + + + + + + + | Specimen | + + | Blood - Blood | + + + + + + + | Performing | Address | City/State/Zipcode | Phone Number | | Organization | | | | + + + + + | [facility] | [address] | [place], [place] | | | [facility] | | [address] | | + + + + + [...]
--- OUTSIDE RECORDS SUMMARY | ~2020-03-23 | XMS | Encounter Summary ---
Demographics + + + | Address | [address] | | | [place] [address] | + + + | Home Phone [...] [place], [place] | | | | | [address] | | + + + + + | Ellie Vang | ECON | Unknown | | + + + + + Care Team Providers + +------+ + | Care Home Specialist Name | Role | Phone | [...] | | | | | | [place], [place] | | | | | | [address] | | | | | | [phone] | | | +--------+ + + + [...] | | 2019 | sherrill | | ENGINEER INTERN [address] | | | | | | [place], [place] | | | | | | [address] | | | | | | [phone] | | | | | | | | +--------+ + + + + documented as of this encounter Visit Diagnoses Not on filedocumented in this encounter"
--- OUTSIDE RECORDS SUMMARY | ~2020-03-23 | XMS | Encounter Summary ---
Demographics + + + | Address | [address] | | | [place] [address] | + + + | Home Phone [...] [place], [place] | | | | | [address] | | + + + + + | Ellie Vang | ECON | Unknown | | + + + + + Care Team Providers + +------+ + | Care Publicity Manager Name | Role | Phone | + +------+ + | Jorje Hill MD | PCP | | + +------+ + Encounter Details +--------+ + + + + | Date | Type | Department | Care Team | Description | +--------+ + + + + | 05/28/ | Documentati | [facility]I DUMAS at [facility] | Lab, Gi Procedure | | | 2018 | on | [address] [facility] | | | | | | Health and Healing, | | | | | | [address] | | | | | | [place], [place] | | | | | | [address] | | | | | | [phone] | | | +--------+ + + + [...] with JA, LT, DH, DL, SH [facility] Type of Sedation: Anesthesia; Reason: Increased tolerance of pain meds, Complicated procedure and Cardiac. Ty pe of [facility] appointment: in person Preparation: None Patient Denied - (Reason): [] Get Images Pushed to IMPAX Other Comments: elephone Encoun ter - Sheree Basilio MA - 05/28/2018 9:07 AM PDTDirect review due to BMI. elephone Encounter - Papo Isabeln - 05/28/2018 8:14 AM PDT Elzbieta Cristina [id number] REFERRAL FOR REVIEW: Reviewing Provider: Sheree Basilio [...] sublingual Place under tongue once daily. CALCIUM CRB&[id number]-GENIS ORAL Take 2 tablets by mouth two [...] cm or less [facility] Results Component Value Date WBC [...] | | 2019 | sherrill | | CORE OVEN TENDER [address] | | | | | | [place], [place] | | | | | | [address] | | | | | | [phone] | | | | | | | | +--------+ + + + + documented as of this encounter Visit Diagnoses Not on filedocumented in this encounter
--- OUTSIDE RECORDS SUMMARY | ~2020-03-23 | XMS | Encounter Summary ---
Demographics + + + | Address | [address] | | | [place] [address] | + + + | Home Phone [...] [place], [place] | | | | | [address] | | + + + + + | Ellie Vang | ECON | Unknown | | + + + + + Care Team Providers + +------+ + | Care Glaze Maker Name | Role | Phone | [...] | 2018 | Visit | Center at [facility] [address] | [address] [facility] | obesity ([facility]), BMI | | | | [facility] | [facility] [address] | 88 (Primary Dx); | | | | for [employer] and | [place], [place] | Type 2 diabetes | | | | Healing, [facility] 2 | [address] | mellitus without | | | | [facility] [place] | [phone] | complication, with | | | | [address] | | long-term current | | | | [phone] | | use of insulin | | | | | | ([facility]); S/P gastric | | | | | [...] as of this encounter Progress Notes Dione Adnre RD - 03/10/2018 1:30 PM PDTFormatting of this note might be different fro m the original. Nutrition Counseling: Post-op Bariatric Surgery Follow-Up Patient referred by: [place] [address] Documented time of visit: 1:30 to 2:00 (30 minutes [id number] with patient) Surgery: Gastric Bypass Date of [...] multivitamin & mineral (with iron) supplement, 2/day -6939-2870 mg calcium citrate with vitamin D/day (take [...] in [address],LD Pager# [phone] Phone: [phone] documented in this en counter Plan of Treatment +--------+ + + + + | Date | Type | Specialty | Care Team | Description | +--------+ + + + + | 04/04/ | Telephone-S | Surgery | Orquidea Cristobal, | | | 2020 | sherrill | | HOSPITAL MORTICIAN [address] | | | | | | [place], [place] | | | | | | [address] | | | | | | [phone] | | | | | | | [...]
--- OUTSIDE RECORDS SUMMARY | ~2020-03-23 | XMS | Encounter Summary ---
Demographics + + + | Address | [address] | | | [place] [address] | + + + | Home Phone [...] [place], [place] | | | | | [address] | | + + + + + | Ellie Vang | ECON | Unknown | | + + + + + Care Team Providers + +------+ + | Care Bias Cutter Name | Role | Phone | [...] | | | | | obstruction | [place], | for Health | | | | | or gangrene | [place] | and Healing, | | | | | Abdominal | [address] | [address] | | | | | pain, | Phone: | [place], [place] | | | | | unspecified | | [address] | | | | | abdominal | Fax: | Phone: | | | | | location | [phone] | [phone] | | | | | Procedures | | Fax: | | | | | CONSULT TO | | [phone] | | | | | SURGERY - [...] | | | | [address] | [place], [place] | | | | | for Health and | [address] | | | | | [facility] | [phone] | | | | | [place], [place] | | | | | | [address] | | | | | | | [...] this encounter Miscellaneous Notes Telephone Encounter - Keren Allen AGACNP - 03/15/2019 10:38 AM PDTSpoke to Elzbieta. She is still having diarrhea and has the past 6 weeks. She is 1 year out of RYGB surgery. I ref erred her to for consult regarding her ventral hernias. In our visit last month I told her to follow up with her PCP to get an appointment regardin g the diarrhea--recommend a local GI consult as she lives in [place]. Elzbieta has still not done this bc she says her PCP is on maternity leave. I urged her to still call the office a s another provider should still be willing to see her since she is feeling unwell. She says she will do this today. EGD/Upper GI is pending. I do think her abdominal pain is related to her hernias, not sure what is causing this diarrhea. She continues her weekly fluids. ANNALISE Whitley elephone Encoun ter - Keren Allen AGACNP - 03/15/2019 10:17 AM PDTLeft voicemail for Elzbieta of CT resul ts. Put in referral to Gen surg for consultation regarding her multiple ventral hernias. Pro vided her with phone number to make that appointment. ANNALISE Whitley documented in th is encounter Plan of Treatment +--------+ + + + + | Date | Type | Specialty | Care Team | Description | +--------+ + + + + | 04/04/ | Telephone-S | Surgery | Orquidea Cristobal, | | | 2019 | cheduled | | AGRONOMY SUPERVISOR [address] | | | | | | [facility] [place], [place] | | | | | | [address] | | | | | | [phone] | | | | | | | [...]
--- OUTSIDE RECORDS SUMMARY | ~2020-03-23 | XMS | Encounter Summary ---
Demographics + + + | Address | [address] | | | [place] [address] | + + + | Home Phone [...] Closed | | Radiology | Diagnoses | [place], | [facility] | | | | | Deep vein | Dharmesh | Intra Op [address] | | | | | thrombosis | MD Natan | [address] | | | | | (DVT) of | [address] | [place], [place] | | | | | left lower | [address] | [address] | | | | | extremity, | [address] | Phone: | | | | | unspecified | [place], [place] | [phone] | | | | | chronicity, | [address] | Fax: | | | | | unspecified | Phone: | [phone] | | | | | vein (HCC) | [phone] | | | | | | Procedures | Fax: | | | | | | IR Removal | [phone] | | | | | | Fibrin [...] + + | 06/14/ | Telephone | [facility] | Dharmesh Fierro, | Procedure | | 2019 | | INTERVENTIONAL | RN | | | | | RADIOLOGY [address] | | | | | | [address] | | | | | | [place], [place] | | | | | | [address] | | | | | | [phone] | | | +--------+ + + + [...] [address] | | | | | | [place] [address] | | | | | | [phone] | | | | | | | | +--------+ + + + + | 04/18/ | Procedure | Neurology | Camille De La Paz, | | | 2019 | visit | | MD Saumya MOE | | | | | | [address] | | | | | | [place] [address] | | | | | | [phone] | | | | | | | [...]
--- OUTSIDE RECORDS SUMMARY | ~2020-03-23 | XMS | Encounter Summary ---
Demographics + + + | Address | [address] | | | [place] [address] | + + + | Home Phone [...] [place], [place] | | | | | [address] | | + + + + + | Ellie Vang | ECON | Unknown | | + + + + + Care Team Providers + +------+ + | Care Heavy Equipment Operator/Paver Name | Role | Phone | + [...] | 2020 | Visit | Center at [facility] [address] | MD [address] | (Primary Dx) | | | | [facility] | [facility] | | | | | [facility] and | [place], [place] | | | | | [facility] 2 | [address] | | | | | [place], [place] | [phone] | | | | | [address] | | | | | | [phone] | | | +--------+---------+ + + + [...] recommend you go to the ED in [place] for workup of pulmonary embolism. I will [...] check. Of note, she was admitted to [facility] 09/02/2019 - 09/04/2019 for a [...] Recommended patient present to the ED in [place] for workup of pulmonary embolism Will call [...] JONES WOO MD [facility] [address] [facility] Mailcode: [place] [address] documented in this encounter Plan of Treatment +--------+ + + + + | Date | Type | Specialty | Care Team | Description | +--------+ + + + + | 04/04/ | Telephone-S | Surgery | Orquidea Cristobal, | | | 2020 | sherrill | | NEW BUSINESS CLERK [address] | | | | | | [place], [place] | | | | | | [address] | | | | | | [phone] | | | | | | | | +--------+ + + + + documented as of this encounter Visit Diagnoses + + | Diagnosis | + + | Postop check - Primary Follow-up examination, following unspecified surgery | + + documented in this encounter
--- OUTSIDE RECORDS SUMMARY | ~2020-03-23 | XMS | Encounter Summary ---
Demographics + + + | Address | [address] | | | [place] [address] | + + + | Home Phone [...] [place], [place] | | | | | [address] | | + + + + + | Ellie Vang | ECON | Unknown | | + + + + + Care Team Providers + +------+ + | Care Maintenance Shop Welder Name | Role | Phone | [...] floor | | | | | | [place], [place] | | | | | | [address] | | | +--------+ + + + [...] | 2019 | sherrill | | MANAGER STRATEGY & ACCOUNT [address] | | | | | | [place], [place] | | | | | | [address] | | | | | | [phone] | | | | | | | | +--------+ + + + + documented as of this encounter Visit Diagnoses Not on filedocumented in this encounter"
--- OUTSIDE RECORDS SUMMARY | ~2020-03-23 | XMS | Encounter Summary ---
Demographics + + + | Address | [address] | | | [place] [address] | + + + | Home Phone [...] Team Providers + +------+ + | Care Houseman Name | Role | Phone | + +------+ + PCP | Unavailable | + +------+ + Encounter Details +--------+ + + + + | Date | Type | Department | Care Team | Description | +--------+ + + + + | 12/02/ | Orders Only | [facility] | Conversion | | | 2017 | | NEPHROLOGY [place] | Transaction, | | | | | [address] | Provider Unknown | | | | | [address] [place], [place] | | | | | | [address] | (Fax) | | | | | [phone] | | | +--------+ + + + [...] | | | | | [place] [address] | | | | | | [phone] | | | | | | | | +--------+ + + + + | 04/18/ | Procedure | Neurology | Camille De La Paz, | | | 2019 | visit | | MD Saumya MOE | | | | | | [address] | | | | | | [place] [address] | | | | | | [phone] | | | | | | | [...]
--- OUTSIDE RECORDS SUMMARY | ~2020-03-23 | XMS | Encounter Summary ---
Demographics + + + | Address | [address] | | | [place] [address] | + + + | Home Phone [...] [place], [place] | | | | | [address] | | + + + + + | Ellie Vang | ECON | Unknown | | + + + + + Care Team Providers + +------+ + | Care Marine Steward Name | Role | Phone | [...] [address] | | | | | [facility] | [facility] | | | | | [address] | [place], [place] | | | | | [facility] | [address] | | | | | and Healing, | [phone] | | | | | [address] | | | | | | [place], [place] | | | | | | [address] | | | | | | [phone] | | | +--------+ + + + [...] 02/22/2018 5:19 PM PDT Addendum created 02/22/18 9859 by Gay Hoff DNP, ANP Pend clinical note documented in th is encounter Plan of Treatment +--------+ + + + + | Date | Type | Specialty | Care Team | Description | +--------+ + + + + | 04/04/ | Telephone-S | Surgery | Orquidea Cristobal, | | | 2019 | cheloveled | | BEER COOLER [address] | | | | | | [place], [place] | | | | | | [address] | | | | | | [phone] | | | | | | | | +--------+ + + + + documented as of this encounter Visit Diagnoses Not on filedocumented in this encounter"
--- OUTSIDE RECORDS SUMMARY | ~2020-03-23 | XMS | Encounter Summary ---
Demographics + + + | Address | [address] | | | [place] [address] | + + + | Home Phone [...] [place], [place] | | | | | [address] | | + + + + + | Ellie Vang | ECON | Unknown | | + + + + + Care Team Providers + +------+ + | Care Log Cutter Name | Role | Phone | [...] | | | without | [place] | [address] | | | | | mention of | | Phone: | | | | | obstruction | | [phone] | | | | | or gangrene | | Fax: | | | | | | | [phone] | +--------+--------+ + + + + Encounter [...] Floor | | | | | | [place], [place] | | | | | | [address] | | | | | | [phone] | | | +--------+---------+ + + + [...] fine, afebrile. Abdominal exam is completely benign. [place]chorage are still in, And wound is healed. [place] removed. Drainage is serous, very slight sanguinous. No eviden ce of deep subcutaneous infection. Abdominal wall currently intact. Drain site OK. Assessment/Plan: Satisfactory course following primary repair of incarcerated umbilical he rnia. Pt. Wants to obtain care, including drain removal and diabetic care in [place], so I have referred her to her [...] | | 2019 | sherrill | | JAPANESE TUTOR [address] | | | | | | [place], [place] | | | | | | [address] | | | | | | [phone] | | | | | | | [...]
--- OUTSIDE RECORDS SUMMARY | ~2020-03-23 | XMS | Encounter Summary ---
Demographics + + + | Address | [address] | | | [place] [address] | + + + | Home Phone [...] [place], [place] | | | | | [address] | | + + + + + [...] 2019 | | Preventive at [facility] | MD [address] | stop any | | | | [address] | [place], [place] | medications? ) | | | | [facility] | [address] | | | | | and [place], | [phone] | | | | | [address] | | | | | | [place], [place] | | | | | | [address] | | | | | | [phone] | | | +--------+ + + + [...] | | 2020 | sherrill | | WOUND CARE SPECIALIST [address] | | | | | | [place] | | | | | | [address] | | | | | | [phone] | | | | | | | | +--------+ + + + + documented as of this encounter Visit Diagnoses Not on filedocumented in this encounter"
--- OUTSIDE RECORDS SUMMARY | ~2020-03-23 | XMS | Encounter Summary ---
Demographics + + + | Address | [address] | | | [place] [address] | + + + | Home Phone [...] [place], [place] | | | | | [address] | | + + + + + | Ellie Vang | ECON | Unknown | | + + + + + Care Team Providers + +------+ + | Care Production Graphic Designer Name | Role | Phone | [...] | | 2020 | sarahiduled | | TITLE VEHICLE SERVICE ATTENDANT [address] | | | | | | [place], [place] | | | | | | [address] | | | | | | [phone] | | | | | | | | +--------+ + + + + documented as of this encounter Visit Diagnoses Not on filedocumented in this encounter"
--- OUTSIDE RECORDS SUMMARY | ~2020-03-23 | XMS | Encounter Summary ---
Demographics + + + | Address | [address] | | | [place] [address] | + + + | Home Phone [...] [place], [place] | | | | | [address] | | + + + + + | Ellie Vang | ECON | Unknown | | + + + + + Care Team Providers + +------+ + | Care Gasket Former Name | Role | Phone | [...] | | | | | (HCC) | [place], [place] | Hospital, | | | | | Procedures | [address] | 10th Floor | | | | | CT ABDOMEN & | Phone: | [place], [place] | | | | | PELVIS [address] | | [address] | | | | | IV CONTRAST | Fax: | Phone: | | | | | [address] | [phone] | [phone] | | | | | ABDOMEN&PELV | | Fax: | | | | | IS | | [phone] | | | | | W/CONTRAST | [...] | | | | | | | [facility] | | | | | | | Health and | | | | | | | Healing, | | | | | | | [address] | | | | | | | [place], [place] | | | | | | | [address] | | | | | | | Phone: | | | | | | | [phone] | | | | | | | Fax: | | | | | | | [phone] | +--------+--------+ + + + + Encounter Details +--------+---------+ + + + | Date | Type | Department | Care Team | Description | +--------+---------+ + + + | 10/02/ | Office | Digestive Health | Shereen Georges, | Abdominal pain | | 2015 | Visit | Center at [facility] [address] | ACNP [address] | (Primary Dx); Morbid | | | | [address] | [place], [place] | obesity (HCC) | | | | for Health and | [address] | | | | | [facility], [facility] 2 | [phone] | | | | | [place], [place] | | | | | | [address] | | | | | | [phone] | | | +--------+---------+ + + + [...] up in th e air, Use a business administration program chair.... And get it really dry. Then use corn starch ..... Then use medicated powder... Please go to the 3rd floor for the study... [place] [address] documented in this encounter Progress Notes Shereen Pinto ACNP - 10/02/2014 11:14 AM PDTFormatting of this note might be different fro m the original. BARIATRIC INITIAL VISIT Provider: Shereen Pinto DNP, DANIELLEP, ONLINE PUBLISHER Referring Provider: Dr. Goodrich Reason for Requested [...] is tender over the right perpenciluar line feliep g her umbilcus 15 cm by 10 [...] with the surgeon. Shereen Pinto DNP, ACNP, ONLINE PUBLISHER Nurse Practitioner for Bariatric Surgery [facility] | [address] | [place], [place] | [address] | Potential Contraindications to Bariatric Surgery Age [...] other providers does not guarantee that the [facility] Bariatric Surger y program will deem you a surgical candidate. documented in this en counter Plan of Treatment +--------+ + + + + | Date | Type | Specialty | Care Team | Description | +--------+ + + + + | 04/04/ | Telephone-S | Surgery | Orquidea Cristobal, | | | 2019 | sherrill | | ONLINE PUBLISHER [address] | | | | | | [place], [place] | | | | | | [address] | | | | | | [phone] | | | | | | | [...]
--- OUTSIDE RECORDS SUMMARY | ~2020-03-23 | XMS | Encounter Summary ---
Demographics + + + | Address | [address] | | | [place] [address] | + + + | Home Phone [...] [place], [place] | | | | | [address] | | + + + + + | Ellie Vang | ECON | Unknown | | + + + + + Care Team Providers + +------+ + | Care Claims Counsel Name | Role | Phone | [...] | | | | | bypass | [place], | [facility], | | | | | Nausea and | [place] | [address]th Floor | | | | | vomiting, | [address] | [place], [place] | | | | | intractabili | Phone: | [address] | | | | | ty of | | Phone: | | | | | vomiting not | Fax: | [phone] | | | | | specified, | [phone] | Fax: | | | | | unspecified | | [phone] | | | | | vomiting | [...] | | | | | bypass | [place], | [facility], | | | | | Nausea and | [place] | [address] Floor | | | | | vomiting, | [address] | [place], [place] | | | | | intractabili | Phone: | [phone] | | | | | ty of | | Phone: | | | | | vomiting not | Fax: | [phone] | | | | | specified, | [phone] | Fax: | | | | | unspecified | | [phone] | | | | | vomiting | [...] | [address] | [place], [place] | | | | | Lesly Gutiérrez [facility] | [address] | | | | | [address] | [phone] | | | | | [place], [place] | | | | | | [address] | | | | | | [phone] | | | +--------+ + + + [...] | | 0 | | | | [id number] | mouth two times | | | [...] | | 2019 | sherrill | | RENTAL COUNTER CLERK [address] | | | | | | [place], [place] | | | | | | [address] | | | | | | [phone] | | | | | | | [...]
--- OUTSIDE RECORDS SUMMARY | ~2020-03-23 | XMS | Encounter Summary ---
Demographics + + + | Address | [address] | | | [place] [address] | + + + | Home Phone [...] [place], [place] | | | | | [address] | | + + + + + | Ellie Vang | ECON | Unknown | | + + + + + Care Team Providers + +------+ + | Care Contracting Executive Name | Role | Phone | [...] PRINCE Herminio | | | | | [place], [place] | [address] | | | 03/[birth year]/ | | [address] | [place], [place] | | | 2014 | | [phone] | [address] | | | | | | [phone] | | | | | | | [...] port site who was transferre d to [facility] for concern of an incarcerated [...] mouth once daily. , Historical Med CALCIUM [id number]-GENIS ORAL Take 1 tablet by mouth two [...] AM Randell Franks Cardiology Preventive at [facility] [phone] Cardiology 04/09/2015 1:00 PM Egs Ppv Tra Trauma Emergency General Surgery at [facility] [phone] [facility] Outstanding labs/studies: None Discharging Physician: GABO LANGSTON MD Attending Physician: Dr. Cantu PCP: Fadi Goodrich DO Signed: GABO LANGSTON MD Pager #[phone] Surgical Research Fellow [facility] Associated attestation - Tye Carrillo DO - 03/12/2015 9:12 AM PDTAttending: I discussed this patient with the resident and agree with the assessment and plan as outlin ed in this note and participated in the planning of care. Tye Carrillo DO, SIDRA, FACS Division of Trauma, Critical Care & Acute Care Surgery [facility] [phone] documented in this encounter Medications at Time of Discharge + + + +---------+--------+ + | Medication | Sig | Dispensed | Refills | Start | End Date | | | | | | Date | | + + + +---------+--------+ + | CALCIUM | Take 2 tablets by | | 0 | | | | [id number]-GEN | mouth two times | | | [...] original. [facility] [place] DEPARTMENT OF SURGERY EMERGENCY GENERAL SURGERY Division of Trauma and Critical Care Attending Physician: Shhaid Cantu MD Progress Note Note Date: 03/03/2015 [...] obesity with known ventral hernias transferred to [facility] for surgical managem ent of ventral hernia, now s/p repair. Post surgical pain: -patient ready for d/c, discussed f/u. Patient lives far away and has other appointments at [facility]. Will attempt to coordinate appointments. Discharge Plan: D/c today GABO LANGSTON MD Pager #[phone] Surgical Research Fellow [facility] Nataliia Mendez, Salomón Person - 03/02/2015 1:12 PM PDT [facility] DEPARTMENT OF SURGERY EMERGENCY GENERAL SURGERY Division of Trauma and Critical Care Attending Physician: Shahid Cantu MD Progress Note Note Date: 03/02/2015 Admission Date: 2015 DYLAN ROMERO, Hospital Day #2 40 F PMH morbid obesity (BMI 71 today), DM2, depression, GERD, h/o stroke at age 18, and kn own ventral hernias transferred to [facility] for surgical treatment of suspected [...] obesity with known ventral hernias transferred to [facility] for surgical managem ent of [...] will be robel ing her home to [place], [place]. CALVIN ROMERO MD PGY-1 Anesthesiology Pager: [phone] [facility] A [address] [place] [address] Marleny Oneill MD - 03/02/2015 8:26 AM [id number] Calvin William Md - 03/01/2015 5:34 PM PDT Brief Post Operative Note: 40 F PMH morbid obesity (BMI 71 today), DM2, depression, GERD, h/o stroke at age 18, and kn own ventral hernias transferred to [facility] for surgical treatment of incarcerated [...] control CALVIN ROMERO MD PGY-1 Anesthesiology Pager: [phone] signed by Calvin Romero Md at 03/01/2015 5:41 PM PDTdocumente d in this encounter H&P Notes Jostin Brunner MD - 2015 8:12 PM PDTFormatting of this note might be differen t from the original. Emergency General Surgery - Admission Note Patient: Dylan Romero ([id number]) Author: Jostin Brunner MD Attending: Dagoberto Colón MD Date: 2015 Reason for Admission: Abdominal pain HPI: Dylan Romero is a 40 y.o. female with morbid obesity (BMI 71 today), DM2, depressi on, GERD, h/o stroke at age 18, and known ventral hernias who is transferred to [facility] from [facility] in [place], [place] with 3 days of abdominal pain, [...] 2013. All surgeries have been performed at [facility]. She has known hernia recurrence in her ventral midline and umbilicus. She is parti cipating in the [facility] Bariatrics program and has lost 100 [...] Socal History: Lives with her mother in [place], [place] Former smoker Denies alcohol, current smoking, and illicits Prior to Admission Medications Prescriptions ALPRAZolam 1 mg oral tablet Sig: Take 1 mg by mouth three times daily as needed for anxiety. CALCIUM CRB&[id number]-H7-[id number]-GENIS ORAL Sig: Take 1 tablet by mouth [...] NPO Jostin Brunner MD R3 EGS Pager: [phone] documented in this e ncounter Procedure Notes Shahid Cantu MD - 03/02/2015 9:15 AM PDTAssociated Order(s): OPERATION RECORDDate of Jacy scott: 03/01/2015 Attending Surgeon: Shahid Cantu MD Business Continuity Planner(s): Howie Angeles MD, R5 Marleny Galvan MD, [...] diabetes and morbid obesity with a B CO of 71, and known ventral hernia from [...] the entire procedur e. Shahid Cantu MD Substance Abuse Technician Trauma, Critical Care & Acute Care Surgery Shahid Cantu MD TBK/MODL /[id number] signed by Shahid Cantu MD at 03/05/2015 [...] Initial surgical contact: Juma Galvan at pager [phone] Associated attestation - Shahid Cantu MD - 03/02/2015 8:24 AM PDTA full operative note will be dictated by Dr. Marleny Galvan, the resident surgeon. Pursuant to federal Medicare and Medicaid regulations I was present for the entire procedur e including the critical portions. Shahid Cantu MD Substance Abuse Technician Trauma, Critical Care & Acute Care Surgery documented in this encounter Miscellaneous Notes Handoff - Jj Arizmendi RN - 03/03/2015 10:35 AM PDTNursing Handoff Patient Daily Goal: Pain will be under control (03/03/15 0015) [facility] IP NURSE HANDOFF: Jiang hospital course [...] Pain will be under control (03/03/15 0015) [facility] IP NURSE HANDOFF: COMFORT/ANXIETY/BEHAVIOR Patient Target: Patient pain level will be under control As evidenced by: Dylan wanted her 10mg of oxycodone every three hours overnight to keep her pain controlle d. She had asked to be woken up during the night when the medication was due to be given. CO N ibuprogen and tylenol was also offered in conjunction with oxycodone. NURSING ASSESSMENT & RECOMMENDATIONS FORWARD Nursing Assessment of Patient Stability Risk: Moderately stable Recommendations Forward: Continue to offer 10mg oxycodone Q 3 hrs alternating with tylenol and ibuprofen. Offer non-pharmacologic pain relief interventions in addition to pharmacologi c. andBranden Veronica RN - 03/02/2015 3:24 PM PDTNursing Handoff [facility] IP NURSE HANDOFF: Jiang hospital course [...] notes for their discharge recommendations. Please page catalytic case operator if any CM arranged service needs arise. Patient [facility] [place] [id number] Mariah Chen RN - 03/02/2015 3:41 AM PDTNursing Handoff [facility] IP NURSE HANDOFF: Jiang hospital course [...] Additional pain medication information: Functional Epidural: No ASSEMBLIES AND INSTALLATIONS INSPECTOR: No Respiratory: RR: 20, O2 Sat: 96 %, O2 Delivery: Nasal cannula Breath Sounds: WDL Except ALFRED: clear;diminished LLL: clear;diminished RUL: clear;diminished RLL: clear;diminished AMARA No Comment: risk for AMARA due to obesity Cardiac: BP: 116/61 mmHg HR: 79 GI: Nausea/Vomiting Status: No Signs/Symptoms: Interventions: Assessment: Comments: no ponv : Last void: Ruiz Contact Name: Mom: Katalina Padilla Contact Number: [phone] Family contacted: Yes Comment: Will contact prior [...] of 4-5 in the abdomen r egion. [facility] Galina Rosas - 2015 6:15 PM PDTHernoe Fire 1475, 40 yof, needs hernia operation , almost 400 lbs, 10/10 pain, baseline is 8/10 pain, given morphine 4 hours ago before [facility], vitals BP 120 systolic, hr [...] Gann. Transport TBD, pt on [facility] at [facility]. documented in this encounte r Plan of Treatment +--------+ + + + + | Date | Type | Specialty | Care Team | Description | +--------+ + + + + | 04/04/ | Telephone-S | Surgery | Orquidea Cristobal, | | | 2020 | cheduled | | COCKTAIL LOUNGE MANAGER [address] | | | | | | [place], [place] | | | | | | [address] | | | | | | [phone] | | | | | | | [...] | | Attending Surgeon: Shahid Cantu MD Business Continuity Planner(s): Howie Angeles MD, R5 | | Marleny [...] 03/02/2015 08:25:39DT: 03/02/2015 09:15:57Job #: | | [id number] | | | |Dr. Chris Cantu was present and scrubbed for the entirety of the case. | | | | | | | |Marleny Galvan MD | | | |Pursuant to federal Medicare and Medicaid regulations I was present for the entire procedur e. | | | | | | | |Shahid Cantu MD | |Substance Abuse Technician | |Trauma, Critical Care & Acute Care Surgery | | | | | | | |Shahid Cantu MD | |TBK/MODL | | | | | | /[id number] | + ---+ CAPILLARY BLOOD GLUCOSE (NO [...] MARQUAM | [address] | [place], [place] | | | [facility] OF CARE | [facility] | [address] | | | TESTS | | | [...] (H) | 60 - 99 mg/dL | [facility] - | | | GLUCOSE, | | [...] MARQUAM | [address] | [place], [place] | | | [place] [facility]INT OF CARE | [address] | [address] | | | TESTS | | | [...] AMES | [address] | [place], [place] | | | [place] [facility]INT OF CARE | [address] | [address] | | | TESTS | | | [...] MARQUAM | [address] | [place], [place] | | | [facility] CARE | [address] | [address] | | | TESTS | | | [...] (H) | 60 - 99 mg/dL | [facility] - | | | GLUCOSE, | | [...] MARQUAM | [address] | [place], [place] | | | [facility] CARE | [facility] | [address] | | | TESTS | | | [...] AMES | [address] | [place], [place] | | | [place] [facility]INT OF CARE | [address] | [address] | | | TESTS | | | [...] [facility] | [address] | [place] [address] | | | SERVICES, CORE | PARK [...] the MDRD equation recommended by the | [facility] | | National Kidney Disease [...] MEDICAL CENTER | [address] | [place] [address] | | | LYDIA RANGEL | CLARENCE [...] (H) | 60 - 99 mg/dL | [facility] - | | | [...] AMES | [address] | [place], [place] | | | [place] [facility]INT OF CARE | [address] | [address] | | | TESTS | | | [...] [facility] | [address] | [place], [place] | | | [facility] OF JAKY | [address] | [address] | | | TESTS | | | [...] [facility] | [address] | [place], [place] | | | [facility] J[facility] | [facility] | [address] | | | TESTS | | | [...] (H) | 60 - 99 mg/dL | [facility] - | | | [...] AMES | [address] | [place], [place] | | | [place] POINT OF CARE | [address] | [address] | | | TESTS | | | [...] [facility] | [address] | [place], [place] | | | [facility] OF [place] | [address] | [address] | | | TESTS | | | [...] [facility] | [address] | [place] [address] | | | SERVICES, CORE | CLARENCE [...] AMES | [address] | [place], [place] | | | [facility] OF JAKY | [address] | [address] | | | TESTS | | | [...] injection 1 dose, | | | Starting [facility] 03/01/15 at 1215, | | | Until [facility] 03/01/15 at 1216 | | + +---+ | | | + +---+ + +-------+ +-------+---+---+ | FLUoxetine (PROZAC) capsule 40 | Given | 03/03/20 | 40 mg | | | | mg 40 mg, oral, DAILY, First | | 15 8:32 | | | | | dose on [facility] 03/01/15 at 0900, Until | | [...] mL/hr | mL/hr | | | Starting [facility] 03/01/15 at 0045, | | AM [...] | | | DAILY, First dose on [facility] 03/01/15 | | AM PDT | [...] | | | | | dose on [facility] 03/01/15 at 0900, Until | | [...]
--- OUTSIDE RECORDS SUMMARY | ~2020-03-23 | XMS | Encounter Summary ---
Demographics + + + | Address | [address] | | | [place] [address] | + + + | Home Phone [...] [place], [place] | | | | | [address] | | + + + + + [...] [facility] | MD [address] | | | | | [address] | [place], [place] | | | | | [facility] | [address] | | | | | and [place], | [phone] | | | | | [address] | | | | | | [facility] [place] | | | | | | [address] | | | | | | [phone] | | | +--------+ + + + [...] | | 2020 | cheduhipolito | | BUTTON BROACHER [address] | | | | | | [place], [place] | | | | | | [address] | | | | | | [phone] | | | | | | | | +--------+ + + + + documented as of this encounter Visit Diagnoses Not on filedocumented in this encounter"
--- OUTSIDE RECORDS SUMMARY | ~2020-03-23 | XMS | Encounter Summary ---
Demographics + + + | Address | [address] | | | [place] [address] | + + + | Home Phone [...] [place], [place] | | | | | [address] | | + + + + + | Ellie Vang | ECON | Unknown | | + + + + + Care Team Providers + +------+ + | Care Vinyl Dipper Name | Role | Phone | + +------+ + | Fadi Goodrich DO | PCP | | + +------+ + Encounter Details +--------+ + + + + | Date | Type | Department | Care Team | Description | +--------+ + + + + | 10/04/ | Abstract | Digestive Health | Hernandez Brian, | | | 2012 | | [place] [address] | [address] [facility] | | | | | [address] [facility] | [facility] | | | | | for Health and | [place], [place] | | | | | [facility] | [address] | | | | | [place], [place] | [phone] | | | | | [address] | | | | | | [phone] | | | +--------+ + + + [...] | | 2020 | sherrill | | TECHNICAL ASSISTANCE CONSULTANT [address] | | | | | | [place] | | | | | | [address] | | | | | | [phone] | | | | | | | | +--------+ + + + + documented as of this encounter Visit Diagnoses Not on filedocumented in this encounter"
--- OUTSIDE RECORDS SUMMARY | ~2020-03-23 | XMS | Encounter Summary ---
Demographics + + + | Address | [address] | | | [place] [address] | + + + | Home Phone [...] [place], [place] | | | | | [address] | | + + + + + | Ellie Vang | ECON | Unknown | | + + + + + Care Team Providers + +------+ + | Care Landscape Technician Name | Role | Phone | [...] | | 2020 | sarahiduled | | TRANSCRIPT CLERK [address] | | | | | | [place], [place] | | | | | | [address] | | | | | | [phone] | | | | | | | | +--------+ + + + + documented as of this encounter Visit Diagnoses Not on filedocumented in this encounter"
--- OUTSIDE RECORDS SUMMARY | ~2020-03-23 | XMS | Encounter Summary ---
Demographics + + + | Address | [address] | | | [place] [address] | + + + | Home Phone [...] [place], [place] | | | | | [address] | | + + + + + | Ellie Vang | ECON | Unknown | | + + + + + Care Team Providers + +------+ + | Care Drilling Field Operator Name | Role | Phone | [...] 2014 | | Center at [facility] [address] | ACNP [address] | | | | | [address] | [place], [place] | | | | | for Health and | [address] | | | | | [facility], [facility] 2 | | | | | | [place], [place] | | | | | | [address] | | | | | | | [...] | | 2020 | cheduled | | ACCESS SERVICES LIBRARIAN [address] | | | | | | [place], [place] | | | | | | [address] | | | | | | [phone] | | | | | | | | +--------+ + + + + documented as of this encounter Visit Diagnoses Not on filedocumented in this encounter"
--- OUTSIDE RECORDS SUMMARY | ~2020-03-23 | XMS | Encounter Summary ---
Demographics + + + | Address | [address] | | | [place] [address] | + + + | Home Phone [...] Team Providers + +------+ + | Care Dub Room Engineer Name | Role | Phone | [...] PAYAL RICHEY | | | | | [place], [place] | [place] [address] | | | | | [address] | [phone] | | | | | [phone] | | | +--------+ + + + [...] RICHEY | | | | | | [place] [address] | | | | | | [phone] | | | | | | | | +--------+ + + + + | 04/18/ | Procedure | Neurology | Camille De La Paz, | | | 2019 | visit | | MD Saumya MOE | | | | | | [address] | | | | | | [place] [address] | | | | | | [phone] | | | | | | | [...] 5.71 | | | RAP: 5 mmHg Coal Gasification Technician: JESSICA Authenticated by: BENJY | | | [...] cmLVPWd: 0.81 | | cmLVOT Area: 3.98 io2QLOP Diam: 2.25 cm%FS: 32.91 %EF(Teich): 61.28 | [...] (A-L): 20.64 ml/m2LAAs A2C: 14.37 | | po6ZSMTR A-L A2C: 40.74 mlLALs A2C: 4.30 cmLAAs A4C: 16.09 zh7KKOZY A-L A4C: | | 43.02 mlLALs A4C: 5.10 cmRAAs: 13.58 ss6WEFET A-L: 33.08 mlRAESV MOD: 32.14 | | mlRALs: 4.73 cmTAPSE: 2.16 cmAV maxP.33 mmHgAV meanP.31 mmHgAV Vmax: | | 1.60 m/Genesis Vmean: 1.08 m/Genesis VTI: 25.19 cmAVA Vmax: 2.75 cm2AVA (VTI): 3.06 | | kw8PMKT Vmax: 0.00 cm2/m2AVAI (VTI): 0.00 cm2/m2LVOT maxP.93 mmHgLVOT meanPG: | | 2.50 mmHgLVSI Dopp: 34.92 ml/m2LVSV Dopp: 77.18 mlLVOT Vmax: 1.11 m/sLVOT Vmean: | | 0.73 m/sLVOT VTI: 19.34 cmMV A Jeffrey: 0.81 m/sMV DecT: 249.81 msMV E Jeffrey: 0.82 | | m/sMV E/A Ratio: 1.01MV PHT: 72.44 msMVA By PHT: 3.03 tb6Kewain e': 0.07 | | m/sSeptal E/e': 11.80Lateral e': 0.14 m/sLateral E/e': 5.71RAP: 5 mmHg | | Coal Gasification Technician: DHAuthenticated by: Shirley SILVER Date/Time: 02-16-2017 18:47:15 [...] | |RAP: 5 mmHg | | | |Coal Gasification Technician: DH | |Authenticated by: BENJY HANKINS MD [...]
--- OUTSIDE RECORDS SUMMARY | ~2020-03-23 | XMS | Encounter Summary ---
Demographics + + + | Address | [address] | | | [place] [address] | + + + | Home Phone [...] + | Katalina Padilla | ECON | [address] | | | | | [place], [place] | | | | | [address] | | + + + + + | Ellie Vang | ECON | Unknown | | + + + + + Care Team Providers + +------+ + | Care Electric Meter Inspector Name | Role | Phone | [...] | | | Unspecified | Kathy Feliciano TEST DEPARTMENT HELPER | MD Randell | | | | | essential | [address] | [address] | | | | | hypertension | [address], | Ave | | | | | Type II or | [address] | [place], [place] | | | | | unspecified | [place], [place] | [address] | | | | | type | [address] | Phone: | | | | | diabetes | Phone: | [phone] | | | | | mellitus | [phone] | Fax: | | | | | without | Fax: | [phone] | | | | | mention of | [phone] | | | | | | complication [...] | 2015 | Visit | Preventive at [facility] | MD [address] | mellitus (HCC) | | | | [address] | [facility] [place] | (Primary Dx) | | | | [facility] | [address] | | | | | and Healing, | [phone] | | | | | Building [address] | | | | | | [place], [place] | | | | | | [address] | | | | | | [phone] | | | +--------+---------+ + + + [...] | | 2020 | abrahamled | | SUBWAREHOUSE SUPERVISOR [address] | | | | | | [place], [place] | | | | | | [address] | | | | | | [phone] | | | | | | | [...] [facility] | [address] | [place] [address] | | | SERVICES, CORE | CLARENCE [...] HOSPITAL LAB[facility]ORY | [address] | [place] [address] | | | SERVICES, SPECIAL | PARK [...]
--- OUTSIDE RECORDS SUMMARY | ~2020-03-23 | XMS | Encounter Summary ---
Demographics + + + | Address | [address] | | | [place] [address] | + + + | Home Phone [...] [place], [place] | | | | | [address] | | + + + + + | Ellie Vang | ECON | Unknown | | + + + + + Care Team Providers + +------+ + | Care Steeler Name | Role | Phone | + [...] | 2014 | Review | Center at [facility] [address] | MD | Decision | | | | [facility] | | | | | | [facility] Health and | | | | | | [facility], [place] [address] | | | | | | [place], [place] | | | | | | [address] | | | | | | [phone] | | | +--------+ + + + [...] | | 2020 | cheduled | | [address] ROAD SUPERVISOR [address] | | | | | | [place], [place] | | | | | | [address] | | | | | | [phone] | | | | | | | | +--------+ + + + + documented as of this encounter Visit Diagnoses Not on filedocumented in this encounter"
--- OUTSIDE RECORDS SUMMARY | ~2020-03-23 | XMS | Encounter Summary ---
Demographics + + + | Address | [address] | | | [place] [address] | + + + | Home Phone [...] + | aKtalina Padilla | ECON | [address] | | | | | [place], [place] | | | | | [address] | | + + + + + | Ellie Vang | ECON | Unknown | | + + + + + Care Team Providers + +------+ + | Care Gear Lapping Machine Operator Name | Role | Phone [...] | | | Procedures | | Rd [place], | | | | | [place] M[place] | | [place] | | | | | INITIAL | | [address] | | | | | ASSESSMNT | | | | | | | X15MIN [place] | | | | | | | [...] | 2012 | Visit | Center at [facility] [address] | [address] [facility] | mellitus (HCC) | | | | [facility] | [address] | (Primary Dx); Morbid | | | | for Health and | [place], [place] | obesity (HCC) | | | | [place] [address] | [address] | | | | | [place], [place] | | | | | | [address] | | | | | | [phone] | | | +--------+---------+ + + + [...] PDTNutrition appointment, -try keeping food logs online: -www.[employer] -wwwPrevistar -[facility].[employer] -Aim for 2903-7632 calories a day -Increase physical activity -try [...] appropriate portions. Denies any binge eating. Weight private branch exchange repairer the past year: > 100 lb wt [...] see an RD for 2 years in [place] but insurance quit paying for it. Up [...] 1000/d--a more appropriate long-term range would be 8694-0856/day. Inadequat e calcium intake; did not address [...] w/ meals & snacks 2. Aim for 9390-8296 kcal/d 3. Keep food logs (at least [...] needed. Olga Lidia Montanez RD, LD Pager [phone] documented in this en counter Plan of Treatment +--------+ + + + + | Date | Type | Specialty | Care Team | Description | +--------+ + + + + | 04/04/ | Telephone-S | Surgery | Orquidea Cristobal, | | | 2020 | sherrill | | METAL TEMPERER [address] | | | | | | [place], [place] | | | | | | [address] | | | | | | [phone] | | | | | | | | +--------+ + + + + documented as of this encounter Procedures + +--------+ + + + | Procedure Name | Priori | Date/Time | Associated Diagnosis | Comments | | | ty | | | | + +--------+ + + + | [place] MNT INITIAL | Routin | 04/14/2013 | [...]
--- OUTSIDE RECORDS SUMMARY | ~2020-03-23 | XMS | Encounter Summary ---
Demographics + + + | Address | [address] | | | [place] [address] | + + + | Home Phone [...] [place], [place] | | | | | [address] | | + + + + + | Ellie Vang | ECON | Unknown | | + + + + + Care Team Providers + +------+ + | Care Train Braker Name | Role | Phone | + +------+ + | Jorje Hill MD | PCP | | + +------+ + Encounter Details +--------+ + + + + | Date | Type | Department | Care Team | Description | +--------+ + + + + | 03/10/ | Pharmacy | [facility] | | | | 2018 | Visit | [facility] | | | | | | [address] | | | | | | Mailcode: Center | | | | | | [facility] and | | | | | | [facility], [facility] 1 | | | | | | [place], [place] | | | | | | [address] | | | | | | [phone] | | | +--------+ + + + [...] | | 2020 | cheduled | | CYLINDER FILLER [address] | | | | | | [place], [place] | | | | | | [address] | | | | | | [phone] | | | | | | | | +--------+ + + + + documented as of this encounter Visit Diagnoses Not on filedocumented in this encounter"
--- OUTSIDE RECORDS SUMMARY | ~2020-03-23 | XMS | Encounter Summary ---
Demographics + + + | Address | [address] | | | [place] [address] | + + + | Home Phone [...] + | Katalina Padilla | ECON | [address] | | | | | [place], [place] | | | | | [address] | | + + + + + | Ellie Vang | ECON | Unknown | | + + + + + Care Team Providers + +------+ + | Care Financial Administrator Name | Role | Phone | [...] | Tiny, | | | | | ND EST | Fadi Person DO | MD Randell | | | | | PATIENT | [address] | [address] | | | | | [address] | [address] | [address] | | | | | | [place], | [place], [place] | | | | | | [place] [address] | [address] | | | | | | Phone: | Phone: | | | | | | [phone] | [phone] | | | | | | Fax: | Fax: | | | | | | [phone] | [phone] | +--------+--------+ + + + + Encounter Details +--------+---------+ + + + | Date | Type | Department | Care Team | Description | +--------+---------+ + + + | 04/03/ | Office | Cardiology | Randell Franks, | Morbid obesity (HCC) | | 2014 | Visit | Preventive at [facility] | [address] | (Primary Dx); Type | | | | [address] | [place], [place] | 2 diabetes mellitus | | | | [facility] | [address] | without complication | | | | and Healing, | [phone] | ([facility]) | | | | Building [address] | | | | | | [place], [place] | | | | | | [address] | | | | | | [phone] | | | +--------+---------+ + + + [...] 500 mg by mouth once daily. CALCIUM CRB&TWC-V0-LXX84-GENIS ORAL Take 1 tablet by mouth two [...] She is working with the bariatric surgery carpet layer to try to achieve this. She states [...] visit Diet: healthy, working with Bar Surg carpet layer Exercise: "I walk everywhere." ROS: No CP, [...] | | 2019 | sherrill | | PURIFICATION OPERATOR [address] | | | | | | [place], [place] | | | | | | [address] | | | | | | [phone] | | | | | | | | +--------+ + + + + documented as of this encounter Visit Diagnoses + + | Diagnosis | + + | Morbid obesity (HCC) - Primary Morbid obesity | + + | Type 2 diabetes mellitus without complication (HCC) | + + documented in this encounter
--- OUTSIDE RECORDS SUMMARY | ~2020-03-23 | XMS | Encounter Summary ---
Demographics + + + | Address | [address] | | | [place] [address] | + + + | Home Phone [...] [place], [place] | | | | | [address] | | + + + + + | Ellie Vang | ECON | Unknown | | + + + + + Care Team Providers + +------+ + | Care Giving Officer Name | Role | Phone | [...] Hospital | | | | | | [place], [place] | | | | | | [address] | | | | | | [phone] | | | +--------+ + + + [...] | | 2019 | sherrill | | RIBBON LAP MACHINE TENDER [address] | | | | | | [place], [place] | | | | | | [address] | | | | | | [phone] | | | | | | | | +--------+ + + + + documented as of this encounter Visit Diagnoses Not on filedocumented in this encounter"
--- OUTSIDE RECORDS SUMMARY | ~2020-03-23 | XMS | Encounter Summary ---
Demographics + + + | Address | [address] | | | [place] [address] | + + + | Home Phone [...] [place], [place] | | | | | [address] | | + + + + + | Ellie Vang | ECON | Unknown | | + + + + + Care Team Providers + +------+ + | Care Tour Leader Name | Role | Phone | + +------+ + | Fadi Goodrich DO | PCP | | + +------+ + Encounter Details +--------+---------+ + + + | Date | Type | Department | Care Team | Description | +--------+---------+ + + + | 02/22/ | Office | Preoperative | Gay Hoff, | Preop examination | | 2018 | Visit | [facility] at | DNP,ANP [address] | (Primary Dx) | | | | [facility] | [facility] [address] | | | | | [address] | [place], [place] | | | | | [facility] | [address] | | | | | and Healing, | [phone] | | | | | Building [address] | | | | | | [facility] [place] | | | | | | [address] | | | | | | [phone] | | | +--------+---------+ + + + [...] or walk. Surgery check-in location: Admitting - [facility], ninth floor lobby Surgery Check [...] it is after office hours, call the [facility] jewel lathe operator at [phone] and ask them to page him or [...] d function per TTE ( 02/16/2017) from [facility]: Improved and stable. T2DM - controlled [...] renal failure no electrolyte abnormalities no dialysis Urology/Daytime Babysitter: Within Defined Limits except as noted below [...] mg by mouth two times daily. CALCIUM CRB&VVQ-H7-PVS07-GENIS ORAL Take 2 tablets by mouth two [...] 98ms, QTC 460ms, TTE ( 02/16/2017) - [facility] 1. Overall left ventricular systolic function is normal with, an EF between 60 - 65 %. 2. The right ventricle is normal in size and function. 3. No significant valvular abnormalities are noted. 4. In comparison to the previous (technically difficult) echocardiographic study done 01/01, no signfiicant changes are noted. TTE (02/17/2016) - [facility] Conclusions 1. There is normal left ventricular [...] and resp iratory change. TTE (11/07/2015) - [facility] Final Impressions: 1. The interpretation [...] d function per TTE ( 02/16/2017) form [facility]. Improved and stable. - Confirmed with [...] Advised to bring her own apparatus for [facility]. GERD - On omeprazole. Chronic Fluid [...] to this patient's care. Gay Hoff DNP,ANP [facility] 4TH FLOOR [address] [place] [address] I spent time (45 minutes, [...] | | 2019 | cheduled | | MASTER COSMETOLOGIST [address] | | | | | | [place], [place] | | | | | | [address] | | | | | | [phone] | | | | | | | [...] + +--------+ + + + | [place]LECTION VENOUS | Routin | 02/22/2018 | [...] [facility] | [address] | [place] [address] | | | SERVICES, CORE | CLARENCE [...] + + | [facility] | [address] | [place] [address] | | | SERVICES, | [address] [...] [facility] | [address] | [place] [address] | | | SERVICES, | [address] [...] [facility] | [address] | [place] [address] | | | SERVICES, SPECIAL | PARK [...] | | | LABORATORY | | | SERBIAN | | | SERVICES, | | | [...] [facility] | [address] | [place] [address] | | | SERVICES, CORE | CLARENCE [...] [facility] OF | [address] | [place], [place] | | | CARDIOLOGY | [address] | [address] | | + + + + + documented in this encounter Visit Diagnoses + + | Diagnosis | + + | Preop examination - Primary Preoperative examination, unspecified | + + documented in this encounter
--- OUTSIDE RECORDS SUMMARY | ~2020-03-23 | XMS | Encounter Summary ---
Demographics + + + | Address | [address] | | | [place] [address] | + + + | Home Phone [...] [place], [place] | | | | | [address] | | + + + + + | Ellie Vang | ECON | Unknown | | + + + + + Care Team Providers + +------+ + | Care Solar Energy Specialist Name | Role | Phone | + +------+ + | Fadi Goodrich DO | PCP | | + +------+ + Encounter Details +--------+ + + + + | Date | Type | Department | Care Team | Description | +--------+ + + + + | 10/12/ | Telephone | Dig[facility]ive [facility] | Hernandez Brian, | | | 2012 | | [place] [address] | MD [address] [facility] | | | | | S [facility] | [facility] | | | | | for Health and | [place], [place] | | | | | [facility] 2 | [address] | | | | | [place], [place] | [phone] | | | | | [address] | | | | | | [phone] | | | +--------+ + + + [...] office visit. I s/w Katalina at [facility] (TEL [phone]), she said a fax will suffice. The following was faxed: Date: 10/12/2012 To: [facility] - Ronnell Darden From: Candy RE: Elzbieta Cristina 1975 Message: This is to confirm Elzbieta Cristina was at the [facility] on 10/07/2012 for an office visit with [...] | | 2020 | sherrill | | BALL MACHINE OPERATOR [address] | | | | | | [place] | | | | | | [address] | | | | | | [phone] | | | | | | | | +--------+ + + + + documented as of this encounter Visit Diagnoses Not on filedocumented in this encounter"
--- OUTSIDE RECORDS SUMMARY | ~2020-03-23 | XMS | Encounter Summary ---
Demographics + + + | Address | [address] | | | [place] [address] | + + + | Home Phone [...] [place], [place] | | | | | [address] | | + + + + + | Ellie Vang | ECON | Unknown | | + + + + + Care Team Providers + +------+ + | Care Funeral Pre Need Consultant Name | Role | Phone | [...] MD,PhD | | | | | [facility] | [address] | | | | | Hospital Admitting | [place], [place] | | | | | Desk Located on the | [address] | | | | | 9th floor | [phone] | | | | | [place], [place] | | | | | | [address] | Graham Honeycutt, | | | | | | ACCOUNTS PAYABLE ASSISTANT [address] | | | | | | [address] | | | | | | [place], [place] | | | | | | [address] | | | | | | [phone] | | | | | | | [...] (Comment) (open | Ashley Herndon RN | Oqruidea Parks RN | | | sore. area [...] | | Endotracheal Tube; 7; Oral; | ACCOUNTS PAYABLE ASSISTANT | ACCOUNTS PAYABLE ASSISTANT | | | Cuffed; 06/23/18; 1542 [...] be different from the original. Elzbieta Cristina [id number] Allergies Allergen Reactions Amoxicillin Unknown Benadrilina [Diphenhydramine [...] Dr. Andie Brian Incisional hernia repair 03/01/2015 [facility]/ Dr. Cantu. Primary fascial closure and scar excision Lap gastric byp, and nilesh-en-y gastroenterostomy w/ nilesh limb 150 cm or less 8 [facility] Temp: 36.1 C (97 F) [...] 06/23/2018 2:18 PM PS T Elzbietairma Rinconch [id number] Allergies Allergen Reactions Amoxicillin Unknown Benadrilina [Diphenhydramine [...] Dr. Andie Brian Incisional hernia repair 03/01/2015 [facility]/ Dr. Cantu. Primary fascial closure and scar excision Lap gastric byp, and nilesh-en-y gastroenterostomy w/ nilesh limb 150 cm or less 8 [facility], Dr Pandey Current Medication List Name [...] Place under tongue once daily. 06/22/2018 CALCIUM CRB&SHP-J6-IWM04-GENIS ORAL Take 2 tablets by mouth two [...] Date RATE 110 02/22/2018 ATRIALRATE 110 02/22/2018 FL 170 02/22/2018 QRS 98 02/22/2018 QT 339 [...] disease no hepatitis Renal: no renal failure Urology/Gas Plumber: Urologic Conditions: nephrolithiasis Endo: Diabetes: type 2 [...] devices: Other Implanted Devices hardware ankle, right 8087 Anesthesia Plan Comments ASA ASA 3 NPO [...] disease no hepatitis Renal: no renal failure Urology/Gas Plumber: Urologic Conditions: nephrolithiasis Endo: Diabetes: type 2 [...] renal failure no electrolyte abnormalities no dialysis Urology/Gas Plumber: Urologic Conditions: nephrolithiasis Endo: Diabetes: type 2 [...] | | 2019 | sherrill | | TERMINAL GAUGER SUPERVISOR [address] | | | | | | [place], [place] | | | | | | [address] | | | | | | [phone] | | | | | | | [...]
--- OUTSIDE RECORDS SUMMARY | ~2020-03-23 | XMS | Encounter Summary ---
Demographics + + + | Address | [address] | | | [place] [address] | + + + | Home Phone [...] [place], [place] | | | | | [address] | | + + + + + | Ellie Vang | ECON | Unknown | | + + + + + Care Team Providers + +------+ + | Care Service Parts Coordinator Name | Role | Phone | [...] + | 03/03/ | Documentati | [facility] | Lab, Gi Procedure | Medical Records | | 2019 | on | [place] | Review | | | | [address] [facility] | | | | | | Health and Healing, | | | | | | [address] | | | | | | [place], [place] | | | | | | [address] | | | | | | [phone] | | | +--------+ + + + [...] 1 to 2 weeks Any Provider Location: [facility] 2 Type of Sedation: Moderate Will confirm above is cleared with MD given all providers vrs Bariatric Electronically sign ed by Sheree Basilio MA at 03/18/2019 11:09 AM PDTTelephone Encounter - Ariella Sr - 03/03/2019 3:13 PM PDT Elzbieta Cristina [id number] REFERRAL FOR REVIEW: Reviewing Provider: Sheree Basilio [...] 1 to 2 weeks Any Provider Location: [facility] 2 Type of Sedation: Moderate [] [...] daily. BELBUCA 600 mcg buccal film CALCIUM CRB&[id number]-D6-[id number]-GENIS ORAL Take 2 tablets by mouth two [...] Andie Brian Incisional hernia repair 03/01/2015 [facility]/ Dr. Cantu. Primary fascial closure and scar excision Lap gastric byp, and nilesh-en-y gastroenterostomy w/ nilesh limb 150 cm or less 8 [facility] Lab Results Component [...] | | 2019 | cheduled | | TEAM GUIDE [address] | | | | | | [place], [place] | | | | | | [address] | | | | | | [phone] | | | | | | | | +--------+ + + + + documented as of this encounter Visit Diagnoses Not on filedocumented in this encounter"
--- OUTSIDE RECORDS SUMMARY | ~2020-03-23 | XMS | Encounter Summary ---
Demographics + + + | Address | [address] | | | [place] [address] | + + + | Home Phone [...] [place], [place] | | | | | [address] | | + + + + + | Ellie Vang | ECON | Unknown | | + + + + + Care Team Providers + +------+ + | Care Stone Rubber Name | Role | Phone | + +------+ + PCP | Unavailable | + +------+ + Encounter Details +--------+ + + + + | Date | Type | Department | Care Team | Description | +--------+ + + + + | 05/13/ | Results | | Other, Faculty | | | 1992 | Only | | [phone] | | +--------+ + + + + [...] | | 2019 | sherrill | | SLUNK SKIN CURER [address] | | | | | | [place], [place] | | | | | | [address] | | | | | | [phone] | | | | | | | [...] + +---------+ + + | [facility] DEPARTMENT OF | | | [...] | | | | | | | [id number] SCAN OF | | | | | [...] | | | | | | | [id number] SCAN OF | | | | | [...] + +---------+ + + | [facility] DEPARTMENT OF | | | | | RADIOLOGY | | | | + +---------+ + + documented in this encounter Visit Diagnoses Not on filedocumented in this encounter"
--- OUTSIDE RECORDS SUMMARY | ~2020-03-23 | XMS | Encounter Summary ---
Demographics + + + | Address | [address] | | | [place] [address] | + + + | Home Phone [...] Team Providers + +------+ + | Care Tutoring Assistant Name | Role | Phone | [...] Closed | | Radiology | Diagnoses | [place], | [facility] | | | | | Deep vein | Dharmesh | Intra Op [address] | | | | | thrombosis | MD Natan | [address] | | | | | (DVT) of | [address] | [place], [place] | | | | | left lower | [address] | [address] | | | | | extremity, | [address] | Phone: | | | | | unspecified | [place], [place] | [phone] | | | | | chronicity, | [address] | Fax: | | | | | unspecified | Phone: | [phone] | | | | | vein (HCC) | [phone] | | | | | | Procedures | Fax: | | | | | | IR Removal | [phone] | | | | | | Fibrin | | | | | | | Sheath/Clot | | | | | | | on Device | | | +--------+--------+ + + + + Encounter Details +--------+ + + + + | Date | Type | Department | Care Team | Description | +--------+ + + + + | 06/20/ | Hospital | [facility] | Dharmesh Melchor | Canceled (OTHER) | | 2019 | Encounter | CENTER IR INTRA OP | MD Natan [address] | | | | | [address] | [address] | | | | | [place], [place] | [place] [address] | | | | | [address] | [phone] | | | | | [phone] | | | | | | | Christian Dawson MD | | | | | | [address] | | | | | | [place], [place] | | | | | | [address] | | | | | | | [...] | 03/29/ | Office | Cardiology | Adarsh Sulema | | 2019 | Visit | | [address] | | | | | | [address] | | | | | | [place] [address] | | | | | | [phone] | | | | | | | | +--------+ + + + + | 04/18/ | Procedure | Neurology | Camille De La Paz, | | | 2019 | visit | | [address] | | | | | | [address] | | | | | | [place] [address] | | | | | | [phone] | | | | | | | [...]
--- OUTSIDE RECORDS SUMMARY | ~2020-03-23 | XMS | Encounter Summary ---
Demographics + + + | Address | [address] | | | [place] [address] | + + + | Home Phone [...] Providers + +------+ + | Care Supervisor Felling Bucking Name | Role | Phone | + +------+ + PCP | Unavailable | + +------+ + Encounter Details +--------+ + + + + | Date | Type | Department | Care Team | Description | +--------+ + + + + | 08/31/ | Hospital | [facility] | Erich Wells | | | 2003 | Encounter | MED CTR SLEEP | MD Michael [address] | | | | | [place] [address] | [address] [facility] | | | | | [place], [place] | [place] [address] | | | | | [address] | [phone] | | | | | [phone] | | | +--------+ + + + [...] [address] | | | | | | [place] [address] | | | | | | [phone] | | | | | | | | +--------+ + + + + | 04/18/ | Procedure | Neurology | Camille De La Paz, | | | 2019 | visit | | MD [address] | | | | | | [address] | | | | | | [place] [address] | | | | | | [phone] | | | | | | | | +--------+ + + + + documented as of this encounter Visit Diagnoses Not on filedocumented in this encounter"
--- OUTSIDE RECORDS SUMMARY | ~2020-03-23 | XMS | Encounter Summary ---
Demographics + + + | Address | [address] | | | [place] [address] | + + + | Home Phone [...] [place], [place] | | | | | [address] | | + + + + + | Ellie Vang | ECON | Unknown | | + + + + + Care Team Providers + +------+ + | Care Waste Collector Name | Role | Phone | + +------+ + | Fadi Goodrich DO | PCP | | + +------+ + Encounter Details +--------+ + + + + | Date | Type | Department | Care Team | Description | +--------+ + + + + | 06/09/ | Abstract | Cardiology | Randell Franks, | | | 2015 | | Preventive at [facility] | MD [address] | | | | | [address] | [place], [place] | | | | | [facility] | [address] | | | | | and [place], | [phone] | | | | | [address] | | | | | | [facility] [place] | | | | | | [address] | | | | | | [phone] | | | +--------+ + + + [...] | | 2020 | cheduhipolito | | METAL FURNACE OPERATOR [address] | | | | | | [place], [place] | | | | | | [address] | | | | | | [phone] | | | | | | | | +--------+ + + + + documented as of this encounter Visit Diagnoses Not on filedocumented in this encounter"
--- OUTSIDE RECORDS SUMMARY | ~2020-03-23 | XMS | Encounter Summary ---
Demographics + + + | Address | [address] | | | [place] [address] | + + + | Home Phone [...] [place], [place] | | | | | [address] | | + + + + + | Ellie Vang | ECON | Unknown | | + + + + + Care Team Providers + +------+ + | Care Motion Picture Scene Builder Name | Role | Phone | [...] | B[facility]atri Surg | | | with ADMISSION LIAISON | | hypertension | [address] | [address] | | | | | Right | [address] | [address] | | | | | heart | [place], [place] | Center for | | | | | failure | [address] | Health and | | | | | ([facility]) Type | Phone: | Healing, | | | | | 2 diabetes | [phone] | Building [address] | | | | | mellitus | Fax: | [place], [place] | | | | | without | [phone] | [address] | | | | | complication | | Phone: | | | | | , with | | [phone] | | | | | long-term | | Fax: | | | | | current use | | [phone] | | | | | of insulin [...] | 2019 | Visit | Center at [facility] 3485 | RESIDENT CARE ASSOCIATE [address] | gastric bypass | | | | [address] | [place], [place] | (Primary Dx); | | | | for Health and | [address] | Intertriginous | | | | Healing, Building 2 | [phone] | candidiasis | | | | [place], [place] | | | | | | [address] | | | | | | [phone] | | | +--------+---------+ + + + [...] a new PCP, Dr. Cardenas in [facility]. Bariatric Measures: Activity: walking [...] Andie Brian Incisional hernia repair 03/01/2015 [facility]/ Dr. Cantu. Primary fascial closure and scar excision Lap gastric byp, and nilesh-en-y gastroenterostomy w/ nilesh limb 150 cm or less 8 [facility] Social History Social History Marital status: [...] History Narrative Updated 11/09/15 She lives in [place] with her mother and her sister (also her caregiver) lives in an apa rtment/duplex below. She has 2 grandchildren (age 4 and 7) who live with her daughter and son-in-law Her boyfriend lives in [place] HFpEF, DM2, HTN, Sleep Apnea (unable to [...] program here and refer her to our graphic specialist who also has expertise in physical [...] tongue once daily., Disp: , Rfl: CALCIUM CRB&HMF-[id number]-GENIS ORAL, Take 2 tablets by mouth two [...] n/a -HTN: still on medications -Diabetes: seeing electric fork operator in December, hopes to eliminate Metformin then as recent A1c was normal Return to bariatric clinic in 6 months for 1 year follow up visit See your primary care provider for adjusting any other medications. Call if any abdominal pain, n/v/d or other issues. Pt agrees to plan and will call and/or send Weebly message if any issues. Start time 2:45, end time 3:10. I spent a total of 25 minutes face to face with this patie nt. Over 50% of visit was in counseling. HILDA Davalos Bariatric Surgery Nurse Practitioner [facility] | [address] | [place], [place] | [address] | documented in this encounter Miscellaneous Notes [...] 2019 | sherrill | | RESIDENT CARE ASSOCIATE [address] | | | | | | [place], [place] | | | | | | [address] | | | | | | [phone] | | | | | | | [...] [facility] | [address] | [place] [address] | | | SERVICES, CORE | PARK [...] + + + | [facility] | [address] | [place] [address] | | | SERVICES, CORE | CLARENCE [...] B: | | | | | | UsTrendy/CSPerformed | | | | | | by [employer],[address] | | | | | | [place], [place] [facility],[place] | | | | | | [address] | | | | | | [phone].Tablo Publishingsaint john hospital. | | | | | | Ismael [...] [facility] | [address] | [place], [place] | | | UNIV PTH - INTFC | | [address] | | + + + + + [...] B: | | | | | | Ticketfly.PhotoPharmics/CSPerformed | | | | | | by [address] | | | | | | [place] [facility],[place] | | | | | | [address] | | | | | | [phone].Ticketfly. | | | | | | comIsmael [...] [facility] | [address] | [place], [place] | | | UNIV PTH - INTFC | | [address] | | + + + + + [...] [facility] | | | (YEN NOAH) | [facility],[address] | | REG UNIV | | | SERUM | [place], [place] [facility],[place] | | PTH - INTFC | | | | [address] | | | | | | [phone].aruplab. | | | | | | intermountain [...] INTFC | | | | determined by [facility] | | | | | | Laboratories. See | | | | | | Compliance Statement B: | | | | | | Ticketfly.[facility]/ | | | | + + + + + + + + | Specimen | + + | Blood - Blood | | (substance) | + + + + + + + | Performing | Address | City/State/Zipcode | Phone Number | | Organization | | | | + + + + + | [facility] | [address] | [place], [place] | | | UNIV PTH - INTFC | | [address] | | + + + + + [...] [facility] | [address] | [place] [address] | | | SERVICES, CORE | PARK [...] + + + + + | [facility] | [address] | [place] [address] | | | SERVICES, CORE | PARK [...] | | | | | determined by [facility] | | | | | | Laboratories. See | | | | | | Compliance Statement B: | | | | | | Ticketfly.PhotoPharmics/CSPerformed | | | | | | by [employer] [address] | | | | | | [place] [facility],[place] | | | | | | [address] | | | | | | [phone].Ticketfly. | | | | | | comIsmael [...] [facility] | [address] | [place], [place] | | | UNIV PTH - INTFC | | [address] | | + + + + + [...] [facility] | [address] | [place] [address] | | | SERVICES, [facility] | [address] | [...] | | | | | determined by [employer] | | | | | | Laboratories. See | | | | | | Compliance Statement B: | | | | | | UsTrendy/CSPerformed | | | | | | by [employer] [address] | | | | | | [place], [place] [facility],[place] | | | | | | [address] | | | | | | [phone].aruplab. | | | | | | Ismael [...] [facility] | [address] | [place], [place] | | | UNIV PTH - INTFC | | [address] | | + + + + + [...] + + + | [facility] | [address] [facility] [address] | [place] [address] | | | SERVICES, CORE | CLARENCE [...] | + + + + + | [facility] | [address] | [place] [address] | | | SERVICES, SPECIAL | PARK [...] + + + | [facility] | [address] | [place] [address] | | | SERVICES, CORE | CLARENCE [...] at | | | | | | [email or web address] | | | | | | med by [place] | | | | | | Laboratories,[address] [facility] | | | | | | [place] [facility] [place] [address] | | | | | | [phone].[email or web address]. | | | | | | intermountain [...] [facility] | [address] | [place], [place] | | | UNIV PTH - INTFC | | [address] | | + + + + + [...] + + + | [facility] [employer] | [address] | [place] [address] | | | SERVICES, CORE | CLARENCE [...]
--- OUTSIDE RECORDS SUMMARY | ~2020-03-23 | XMS | Encounter Summary ---
Demographics + + + | Address | [address] | | | [place] [address] | + + + | Home Phone [...] | Organization | [facility] [...] Team Providers + +------+ + | Care Sanitation Superintendent Name | Role | Phone | [...] [place] | | | | | | [address] | (Fax) | | | | | [phone] | | | +--------+ + + + [...] | | | | | [place] [address] | | | | | | [phone] | | | | | | | | +--------+ + + + + | 04/18/ | Procedure | Neurology | Camille De La Paz, | | | 2019 | visit | | MD Saumya MOE | | | | | | [address] | | | | | | [place] [address] | | | | | | [phone] | | | | | | | [...]
--- OUTSIDE RECORDS SUMMARY | ~2020-03-23 | XMS | Encounter Summary ---
Demographics + + + | Address | [address] | | | [place] [address] | + + + | Home Phone [...] [place], [place] | | | | | [address] | | + + + + + | Ellie Vang | ECON | Unknown | | + + + + + Care Team Providers + +------+ + | Care Bottom Stainer Name | Role | Phone | + [...] | | 2019 | sherrill | | SOLE POLISHER [address] | | | | | | [place], [place] | | | | | | [address] | | | | | | [phone] | | | | | | | | +--------+ + + + + documented as of this encounter Visit Diagnoses Not on filedocumented in this encounter"
--- OUTSIDE RECORDS SUMMARY | ~2020-03-23 | XMS | Encounter Summary ---
Demographics + + + | Address | [address] | | | [place] [address] | + + + | Home Phone [...] [place], [place] | | | | | [address] | | + + + + + | Ellie Vang | ECON | Unknown | | + + + + + Care Team Providers + +------+ + | Care Diesel Power Shovel Operator Name | Role | Phone [...] | | 2018 | | Center at [facility] 3485 | ACNP [address] | | | | | [address] | Ave [place], [place] | | | | | for Health and | [address] | | | | | [facility], [facility] 2 | [phone] | | | | | [place], [place] | | | | | | [address] | | | | | | | [...] were faxed to PCP Dr. Goodrich through [employer]. documented in this encounter Plan of Treatment +--------+ + + + + | Date | Type | Specialty | Care Team | Description | +--------+ + + + + | 04/04/ | Telephone-S | Surgery | Orquidea Cristobal, | | | 2019 | sherrill | | TOPPER PACKER [address] | | | | | | [place], [place] | | | | | | [address] | | | | | | [phone] | | | | | | | | +--------+ + + + + documented as of this encounter Visit Diagnoses Not on filedocumented in this encounter"
--- OUTSIDE RECORDS SUMMARY | ~2020-03-23 | XMS | Encounter Summary ---
Demographics + + + | Address | [address] | | | [place] [address] | + + + | Home Phone [...] Team Providers + +------+ + | Care Consulting Systems Engineer Name | Role | Phone [...] + + | 06/10/ | Telephone | [facility] | [place], | Referral | | 2019 | | INTERVENTIONAL | Mary Ortiz | | | | | RADIOLOGY [address] | Farmworker Machine | | | | | [address] | | | | | | [place], [place] | | | | | | [address] | | | | | | [phone] | | | +--------+ + + + [...] elephone Encounter - Diana Alcantara Medical Ass istanbarron - 06/10/2019 9:34 AM PSTINTERVENTIONAL RADIOLOGY REFERRAL Reason for Referral: Acute embolism and thrombosis of deep veins of right upper extremity Procedure Requested: PICC line removal Referring Physician: Jorje Hill MD Office contact: [facility] Imaging: none Patient Dx: Acute embolism and thrombosis of deep veins of right upper extremity Patient BMI: 56.81kg/m2 Blood thinners: aspirin 81mg Any Red Flags?: Electronically signed by Diana Alcantara, Zanjero at 9 9:38 AM PSTdocumented in this encounter Plan [...] R[place]HEY | | | | | | [place] [address] | | | | | | [phone] | | | | | | | | +--------+ + + + + | 04/18/ | Procedure | Neurology | Camille De La Paz, | | | 2019 | visit | | [address] | | | | | | [address] | | | | | | [place] [address] | | | | | | [phone] | | | | | | | | +--------+ + + + + documented as of this encounter Visit Diagnoses Not on filedocumented in this encounter"
--- OUTSIDE RECORDS SUMMARY | ~2020-03-23 | XMS | Encounter Summary ---
Demographics + + + | Address | [address] | | | [place] [address] | + + + | Home Phone [...] [place], [place] | | | | | [address] | | + + + + + | Ellie Vang | ECON | Unknown | | + + + + + Care Team Providers + +------+ + | Care Rest Room Maid Name | Role | Phone | [...] floor | | | | | | [place], [place] | | | | | | [address] | | | +--------+ + + + [...] | | 2020 | abrahamled | | BOILER ASSISTANT OPERATOR [address] | | | | | | [place] | | | | | | [address] | | | | | | [phone] | | | | | | | | +--------+ + + + + documented as of this encounter Visit Diagnoses Not on filedocumented in this encounter"
--- OUTSIDE RECORDS SUMMARY | ~2020-03-23 | XMS | Encounter Summary ---
Demographics + + + | Address | [address] | | | [place] [address] | + + + | Home Phone [...] Organization | [facility] [...] Team Providers + +------+ + | Care Open Die Inspector Name | Role | Phone | + +------+ + PCP | Unavailable | + +------+ + Encounter Details +--------+ + + + + | Date | Type | Department | Care Team | Description | +--------+ + + + + | 04/14/ | Orders Only | [facility] | Conversion | | | 2015 | | NEPHROLOGY [place] | Transaction, | | | | | [address] | Provider Unknown | | | | | [address] [place], [place] | | | | | | [address] | (Fax) | | | | | [phone] | | | +--------+ + + + [...] | | | | | | [place] [address] | | | | | | [phone] | | | | | | | | +--------+ + + + + | 04/18/ | Procedure | Neurology | Camille De La Paz, | | | 2019 | visit | | MD Saumya MOE | | | | | | [address] | | | | | | [place] [address] | | | | | | [phone] | | | | | | | [...] - 1.030 | EXTERNAL | | | [place], | | | LAB | | | [...]
--- OUTSIDE RECORDS SUMMARY | ~2020-03-23 | XMS | Encounter Summary ---
Demographics + + + | Address | [address] | | | [place] [address] | + + + | Home Phone [...] [place], [place] | | | | | [address] | | + + + + + | Ellie Vang | ECON | Unknown | | + + + + + Care Team Providers + +------+ + | Care Soil Sort Worker Name | Role | Phone | [...] CHOLECYSTECOMY WITH | | | | Brock [facility] Moreno | Clarence Gutiérrez [place], | INTRA-OP | | | | [place] Admitting | [place] [address] | CHOLANGIOGRAM | | | | Desk Located on the | [phone] | | | | | 9th floor | | | | | | [place], [place] | | | | | | [address] | | | +--------+---------+ + + + [...] the resident s note. PRADIP STARR MD [facility] [address] [place] [address] orrMaryam hill MD - 1:05 PM PDT [facility] DEPARTMENT OF SURGERY EMERGENCY GENERAL SURGERY Division [...] DM who presented to the [facility] ED ([place], [place]) on 02/06/14, with a week hi story of RUQ abdominal pain that radiates to her back. There, she was found to have leukocyt osis and multiple tiny, mobile stones, + sonographic Peterson's sign on abdominal ultrasound, concerning for acute cholecystitis. She was givenIV antibiotics (cipro, flagyl) and pain med s, then transferred to [facility] by [facility] for further care. Ms. Romero endorsed [...] up with Trauma Emergency General Surgery at [facility] In 4 weeks. (follow up in 2-4 weeks ) Contact information [address] [facility] Mailcode: [id number] [facility] [place] [address] Thank you for the [...] the resident s note. PRADIP STARR MD [facility] [address] [facility] [place] [address] orrMaryam hill MD - 5:17 AM PDT [facility] DEPARTMENT OF SURGERY EMERGENCY GENERAL SURGERY Division [...] tolerated MARYAM RHODES MD PGY-1, General Surgery [phone] pager number [facility] [address] [address] documented in this encoun ter H&P Notes Milana Landaver[place] MD - 02/07/2014 3:31 AM PDTI saw and evaluated the patient. I agree with the findings and the plan of care as documented in the resident s note. MILANA LANDA[place] MD [facility] [address] [place] [address] Stephanie Esposito MD,MPH - 02/07/2014 3:31 AM PDTFormatting of this note might be different from the origi nal. HISTORY AND PHYSICAL CC: abdominal pain HPI: Dylan Romero is a 38 y.o. Female with morbid obesity, bipolar disorder and Type 2 DM who presented to the [facility] ED ([place], [place]) on 02/06/14, with a week hi story of RUQ abdominal pain that radiates to her back. There, she was found to have leukocyt osis and multiple tiny, mobile stones, + sonographic Peterson's sign on abdominal ultrasound, concerning for acute cholecystitis. She was given iv antibiotics (cipro, flagyl) and pain m eds, then transferred to [facility] by [facility] for further care. Ms. Romero endorses [...] of Migraine Hx of embolic stroke from [facility] (Medication - OSH chart) Arthritis GERD PAST [...] the resident s note. PRADIP STARR MD [facility] [address] [place] [address] I was present for the entire procedure as described in the note for this encounter. PRADIP STARR MD [facility] [address] [place] [address] Jacquelin Melendez MD - 02/07/2014 7:28 PM [...] the resident s note. PRADIP STARR MD [facility] [address] [facility] [place] [address] Francisco Snowden MD - 6:44 PM PDTAssociated [...] 0 Initial surgical contact: EGS at pager [phone] documented in this encoun ter Miscellaneous Notes [...] of this stay (w/date): Transfer from [place] PmHx: DMII;Migraines; open appy; umbilical hernia repair [...] of this stay (w/date): Transfer from [place] PmHx: DMII;Migraines; open appy; umbilical hernia repair [...] pain medication information: none Functional Epidural: No ARC AIR OPERATOR: No Respiratory: RR: 19, O2 Sat: 96 [...] FC Contact Name: Ellie Vang Contact Number: [phone] Family contacted: Yes Comment: Belongings:in Pt's room can - Other, [facility] ulty - 02/07/2014 9:24 AM PDT can [...] DM who presented to the [facility] ED ([place], [place]) on 01/24 11/07, with a week history of RUQ abdominal pain that radiates to her back. There, she was fo und to have leukocytosis and multiple tiny, mobile stones, concerning for acute cholecystit is. She was given iv antibiotics (cipro, flagyl) and pain meds, then transferred to [facility] by [facility] for further care. Pre-admission living situation: Lives in [facility] Pre-admission functional status: Hx of obesity Family/support system: Mother, Katalina Insurance/funding in place: COMPOSITE LAYUP WORKER Anticipated case management discharge needs: Will follow for any needs from CM depar tment See MD notes, AVS and any ancillary consultation notes for further discharge or f/u needs. Mary Alice Strauss RN, CM pager [phone] [facility] - Jayant Levine - 02/07/2014 3:04 AM PDTLF req extra help on the pad. Pt is obese. ED Charg e and Patient Transportation advised. [facility] Alexia Neal - 02/07/2014 3:03 AM PDTPt is large, LF12 req uesting extra help to the helipad. 3: 03 AM [facility] Alexia Neal - 02/07/2014 3:00 AM PDTLF12 [...] of this stay (w/date): Transfer from [place] PmHx: DMII;Migraines; Lap appy; abdominal hernia repair [...] of abdominal pain Discharge plan: TBD [facility] Jayant Bello - 02/06/2014 9:24 PM PDTGRP 18 [facility]aged. [facility] - 02/06/2014 9:14 PM [id number]; Poss. Cholecystitis; Abd pain; Vom & Diarrhea. Morbid obesity 400+lbs. Upper Quad Tenderness. White count [id number]. EGS Dr[address] Akhil he Accepts pt REQ 10A. Electronically signed by Jayant mart 02/06/2014 9:16 PM [facility] Jayant Bello - 02/06/2014 8:[address] Renee KAHN. documente d in this encounter Plan of Treatment +--------+ + + + + | Date | Type | Specialty | Care Team | Description | +--------+ + + + + | 04/04/ | Telephone-S | Surgery | Orquidea Cristobal, | | | 2019 | cheduled | | VENETIAN BLIND MECHANIC [address] | | | | | | [place], [place] | | | | | | [address] | | | | | | [phone] | | | | | | | [...] - MARQUAM | [address] | [place], [place] | | | JUSTINE DAWN OF CARE | [facility] | [address] | | | TESTS | | | [...] YAKOVAM | [address] | [place], [place] | | | JUSTINE DAWN OF JAKY | [address] | [address] | | | TESTS | | | [...] AMES | [address] | [place], [place] | | | JUSTINE DAWN OF CARE | [facility] | [address] | | | TESTS | | | [...] MARQUAM | [address] | [place], [place] | | | [place] POINT OF CARE | [facility] | [address] | | | TESTS | | | [...] [facility] | [address] | [place] [address] | | | SERVICES, | [address] [...] [facility] | [address] | [place] [address] | | | SERVICES, | [address] [...] - MARQUAM | [address] | [place], [place] | | | [facility] | [address] | [address] | | | TESTS | | | [...] [facility] | [address] | [place] [address] | | | SERVICES, CORE | PARK [...] + + + + + | [facility] | [address] | [place] [address] | | | SERVICES, CORE | CLARENCE [...] + + + + + | [facility] | [address] | [place] [address] | | | SERVICES, CORE | CLARENCE [...] [facility] | [address] | [place] [address] | | | SERVICES, CORE | PARK [...] + + + | [facility] [employer] | [address] | [place] [address] | | | SERVICES, CORE | CLARENCE [...] - KWAKU | [address] | [place], [place] | | | [facility] | [facility] | [address] | | | TESTS | | | [...] pattern. | | | | | | Core Analyst | | | | | | [...] + + + | [facility] | [address] | [place] [address] | | | PATHOLOGY | [address] [...]
--- OUTSIDE RECORDS SUMMARY | ~2020-03-23 | XMS | Encounter Summary ---
Demographics + + + | Address | [address] | | | [place] [address] | + + + | Home Phone [...] Providers + +------+ + | Care Machine Captain Name | Role | Phone | + +------+ + PCP | Unavailable | + +------+ + Encounter Details +--------+ + + + + | Date | Type | Department | Care Team | Description | +--------+ + + + + | 10/14/ | Orders Only | [facility] | Conversion | | | 2017 | | [facility] | Transaction, | | | | | [address] | Provider Unknown | | | | | [address] [place], [place] | [phone] | | | | | [address] | | | | | | [phone] | | | +--------+ + + + [...] R[address]HEY | | | | | | [place] [address] | | | | | | [phone] | | | | | | | | +--------+ + + + + | 04/18/ | Procedure | Neurology | Camille De La Paz, | | | 2019 | visit | | [address] | | | | | | [address] | | | | | | [place] [address] | | | | | | [phone] | | | | | | | [...]
--- OUTSIDE RECORDS SUMMARY | ~2020-03-23 | XMS | Encounter Summary ---
Demographics + + + | Address | [address] | | | [place] [address] | + + + | Home Phone [...] + | Katalina Padilla | ECON | [address] | | | | | [place], [place] | | | | | [address] | | + + + + + [...] | | | | | | | [address] | | | | | | | [address] | | | | | | | [place], | | | | | | | [place] | | | | | | | [address] | | | | | | | Phone: | | | | | | | [phone] | | | | | | | Fax: | | | | | | | [phone] | +--------+--------+ + + + + Encounter Details +--------+---------+ + + + | Date | Type | Department | Care Team | Description | +--------+---------+ + + + | 04/14/ | Office | Digestive Health | Hernandez Brian, | Morbid obesity (HCC) | | 2013 | Visit | Center at [facility] [address] | [address] | (Primary Dx); Type | | | | [address] [facility] | [address] | 2 diabetes mellitus | | | | for [facility] and | [place], [place] | ([facility]); AMARA | | | | [place] [address] | [address] | (obstructive sleep | | | | [facility] [place] | [phone] | apnea); Edema | | | | [address] | | | | | | [phone] | | | +--------+---------+ + + + [...] this year, she was tr ansferred from [place] for surgical evaluation of possible incarcerated ventral [...] with close followup by her PCP in [place] in the interim. Dr. Guillory in [place] has been following her since January, with CT scan obtained at [facility] in [place] 02/09/2013 (images in [employer]), demonstrating "recurrent hypogastric [...] to follow up with her providers at [facility] to include a visi t to [...] r weight loss efforts. She saw a pulp and paper tester today and Melida came in to [...] and well perfused. ABDOMEN: Type III pannus snf to her knees. There is a well [...] | 2020 | cheduled | | CLINICAL MENTAL HEALTH COUNSELOR [address] | | | | | | [place], [place] | | | | | | [address] | | | | | | [phone] | | | | | | | [...]
--- OUTSIDE RECORDS SUMMARY | ~2020-03-23 | XMS | Encounter Summary ---
Demographics + + + | Address | [address] | | | [place] [address] | + + + | Home Phone [...] [place], [place] | | | | | [address] | | + + + + + | Ellie Vang | ECON | Unknown | | + + + + + Care Team Providers + +------+ + | Care Outpatient Physical Therapist Name | Role | Phone | [...] | | Essential | MD Randell | AH Roldan, | | | with LIFE UNDERWRITER | | hypertension | [address] | GEMA JIANG | | | | | Right | [address] | [address] | | | | | heart | [place], [place] | [facility] | | | | | failure | [address] | [address] [facility] | | | | | ([facility]) Type | Phone: | [place] | | | | | 2 diabetes | [phone] | [address] | | | | | mellitus | Fax: | Phone: | | | | | without | [phone] | [phone] | | | | | complication | | Fax: | | | | | , with | | [phone] | | | | | long-term | [...] | 2017 | Visit | Center at [facility] [address] | [facility] [place] [address] | BMI of 70 and over, | | | | [facility] | [address] | adult ([facility]) (Primary | | | | for Health and | [place], [place] | Dx); Type 2 | | | | Healing, [place] [address] | [address]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 | | | | [place], [place] | [phone] | without | | | | [address] | | complication, with | | | | [phone] | | long-term current | | | | | | use of insulin | | | | | | ([facility]); Chronic | | | | | | diastolic heart | | | | | | failure ([facility]) | +--------+---------+ + + + Social [...] of Visit: 10:03 to 10:30 (27 minutes [id number] with patient) (1 hour ap point not [...] eat like she should, tries to eat vacuum system tester things and this does not help. Food [...] vagina Allergic rhinitis Anemia Anxiety Bipolar disorder ([facility]) Chronic wound infection of abdomen [...] post-surgery diet progression. 4. Call or send [employer] message to dietitian with any questions. Contact information was provided. Follow up with dietitian prior to surgery (take 2 Weight management classes as part of 6 mo [facility] supervised diet). [address], [facility] [place] [facility] Bariatrics [phone] documented i n this encounter Plan of Treatment +--------+ + + + + | Date | Type | Specialty | Care Team | Description | +--------+ + + + + | 04/04/ | Telephone-S | Surgery | Orquidea Cristobal, | | | 2020 | cheduled | | INDEX EDITOR [address] | | | | | | [place], [place] | | | | | | [address] | | | | | | [phone] | | | | | | | | +--------+ + + + + documented as of this encounter Procedures + +--------+ + + + | Procedure Name | Priori | Date/Time | Associated Diagnosis | Comments | | | ty | | | | + +--------+ + + + | GA MNT RE-ASSESSMNT | Routin | 02/02/2017 | Morbid obesity | | | X15MIN | e | 12:04 PM | with BMI of 70 and | | | | | PDT | over, adult ([facility]) | | | | | | Type 2 diabetes | | | | | | mellitus without | | | | | | complication, with | | | | | | long-term current | | | | | | use of insulin ([facility]) | | | | | | Chronic diastolic | | | | | | heart failure ([facility]) | | + +--------+ + [...]
--- OUTSIDE RECORDS SUMMARY | ~2020-03-23 | XMS | Encounter Summary ---
Demographics + + + | Address | [address] | | | [place] [address] | + + + | Home Phone [...] [place], [place] | | | | | [address] | | + + + + + | Ellie Vang | ECON | Unknown | | + + + + + Care Team Providers + +------+ + | Care Wax Pattern Repairer Name | Role | Phone | + +------+ + | Fadi Goodrich DO | PCP | | + +------+ + Encounter Details +--------+------+ + + + | Date | Type | Department | Care Team | Description | +--------+------+ + + + | 12/05/ | Lab | Laboratory at [facility] | | Type 2 diabetes | | 2013 | | [address] | | mellitus (HCC) | | | | [facility] | | | | | | and Healing, | | | | | | [address] | | | | | | [place], [place] | | | | | | [address] | | | | | | [phone] | | | +--------+------+ + + + [...] | 2019 | sherrill | | MANAGER SKILLED [address] | | | | | | [place], [place] | | | | | | [address] | | | | | | [phone] | | | | | | | [...] + + + + + | [facility] | [address] | [place] [address] | | | SERVICES, SPECIAL | PARK [...]
--- OUTSIDE RECORDS SUMMARY | ~2020-03-23 | XMS | Encounter Summary ---
Demographics + + + | Address | [address] | | | [place] [address] | + + + | Home Phone [...] Providers + +------+ + | Care Sterilization Technician Name | Role | Phone | [...] + + | 10/26/ | Virtual | [facility] | Sulema Altamirano | Chronic diastolic | | 2019 | Office | [facility]ARDIOLOGY [place] | [address] | heart failure (HCC) | | | Visit | [address] | [address] | (Primary Dx); | | | | [address] | [place] [address] | History of sinus | | | | [place] | [phone] | tachycardia; History | | | | [address] | | of stroke; HTN, | | | | [phone] | | goal below 130/80; | | [...] minutes of medical discussion via telephone visit (67597) Patient has not been seen in office [...] and hyperuricemia which is being followed by armament installer Dr. Fu, Her current and previous testing [...] to lose weight. She followed up with self pay specialist at [facility], Dr. Franks, who reported that her diabetes [...] weight loss. Hypothyroidism,followed by Dr. Kat alva, self pay specialist at [facility]) . Denies excessive [...] knee pain and hernia pain Lives in [facility] her mother who smokes. . Sister is healthcare or medical. Grandchildren ages 4 and 7 live with he r daughter and son-in-law. Disabled , on disability .01/24/2019: working with [employer] to get her own place. Outpatient Medications Prior to Visit Medication Sig Dispense Refill ALPRAZolam (XANAX) 0.5 mg tablet Take 0.5-1 mg by mouth 3 times daily as needed. ascorbic acid (VITAMIN C) 500 MG tablet Take 1,000 mg by mouth Daily. atenolol (TENORMIN) 50 mg tablet Take 1 tablet by mouth nightly. 30 tablet 11 Xaxusph-Dorulheak-Aqedfxr D (CITRACAL CALCIUM+D PO) Take 4 tablets [...] mL every day by injection route. rizatriptan (MAXALT-ALL AROUND PATTERNMAKER) 5 mg disintegrating tablet Take 5 mg by mouth as needed for Mi graine. May repeat in 2 hours if needed spironolactone (ALDACTONE) 50 mg tablet Take 50 mg by mouth Daily. thyroid (EMBLEM DRAWER IN THYROID) 30 mg tablet EMBLEM DRAWER IN Thyroid 30 mg tablet TAKE ONE TABLET [...] , and aortic arch normal Echo: 01/02/2016 ([facility]): TDS, cardiac chamber dimensions grossly [...] of DVT. EKG EKG 10/27: ([facility]) Normal sinus rhythm. Normal EKG. Rate 93 bpm, ID 172 ms, QRS 90 ms, QTC 465 ms personally reviewed by me in the office today) EK02/05: Sinus tachycardia, otherwise normal. Rate 160 bpm, ID 174 ms, QRS 74 ms, QTC 451 ms (personally reviewed by me in the office today and no significant change seen fro m EKG done in October 2016 except for faster heart rate) EK04/26/2018: Normal sinus rhythm, rate 74 bpm, ID 182 ms, QRS 96 ms, QTC 472 ms, alexandru genao personally reviewed by me, and compared to previous EKG, heart rate is now better controll ed, otherwise similar morphology EK04/28/2019: Normal sinus rhythm, right axis. Rate 74 bpm, ID 170 ms, QRS 88 ms, QTC 45 [...] elevated, requiring increased calcium dosing from her self pay specialist. She is being closely monitored with her [...] she needs to be retested for sleep shot lighter ea given her large weight loss, and [...] for continuity of care purp trina MARKS [facility] 10/28/2019 ERdomerritt han in this encounter [...] [address]Y | | | | | | [place] [address] | | | | | | [phone] | | | | | | | | +--------+ + + + + | 04/18/ | Procedure | Neurology | Camille De La Paz, | | | 2019 | visit | | MD [address] MOE | | | | | | [address] | | | | | | [place] [address] | | | | | | [phone] | | | | | | | [...]
--- OUTSIDE RECORDS SUMMARY | ~2020-03-23 | XMS | Encounter Summary ---
Demographics + + + | Address | [address] | | | [place] [address] | + + + | Home Phone [...] [place], [place] | | | | | [address] | | + + + + + | Ellie Vang | ECON | Unknown | | + + + + + Care Team Providers + +------+ + | Care Oracle Fusion Developer Name | Role | Phone | [...] [address] | | | | | | [facility] | | | | | | and Healing, | | | | | | [address] | | | | | | [place], [place] | | | | | | [address] | | | | | | [phone] | | | +--------+ + + + [...] MG TABLET ATENOLOL 50 MG TABLET CALCIUM [id number]-GENIS ORAL CYANOCOBALAMIN (VIT B-12) 1,000 MCG TABLET [...] ch as Uber/Lyft), or public transportation. An Uber/Lyft/tower truck driver does not count as the [...] hours, call the [facility] cinder pit crane operator at [phone] and ask them to page him or h er. documented in this encounter Miscellaneous Notes Telephone Encounter - Aide Birmingham RN - 06/14/2019 2:19 PM PSTPhone appointment complete d as scheduled. Documentation to be found in the Notes and Trans Encounter tab in [employer]. Elec tronically signed by Trell Walker MD at 06/16/2019 4:13 PM PSTdocumented in this encount er Plan of Treatment +--------+ + + + + | Date | Type | Specialty | Care Team | Description | +--------+ + + + + | 04/04/ | Telephone-S | Surgery | Orquidea Cristobal, | | | 2019 | cheduled | | WASTEWATER ANALYST [address] | | | | | | [place] | | | | | | [address] | | | | | | [phone] | | | | | | | | +--------+ + + + + documented as of this encounter Visit Diagnoses Not on filedocumented in this encounter
--- OUTSIDE RECORDS SUMMARY | ~2020-03-23 | XMS | Encounter Summary ---
Demographics + + + | Address | [address] | | | [place] [address] | + + + | Home Phone [...] + | 10/07/ | Orders Only | [facility] | Conversion | | | 2017 | | NEPHROLOGY [place] | Transaction, | | | | | [address] | Provider Unknown | | | | | [address] [place], [place] | | | | | | [address] | (Fax) | | | | | [phone] | | | +--------+ + + + [...] | | | | | | [place] [address] | | | | | | [phone] | | | | | | | | +--------+ + + + + | 04/18/ | Procedure | Neurology | Camille De La Paz, | | | 2019 | visit | | MD Saumya MOE | | | | | | [address] | | | | | | [place] [address] | | | | | | [phone] | | | | | | | [...]
--- OUTSIDE RECORDS SUMMARY | ~2020-03-23 | XMS | Encounter Summary ---
Demographics + + + | Address | [address] | | | [place] [address] | + + + | Home Phone [...] [place], [place] | | | | | [address] | | + + + + + | Ellie Vang | ECON | Unknown | | + + + + + Care Team Providers + +------+ + | Care Warp Dyeing Tender Name | Role | Phone | [...] | | 2012 | | [facility] | [address] [facility] | ventral hernia; | | | | Rd [facility] | [facility] [address] | possible bowel | | | | Hospital Admitting | [place], [place] | resection; | | | | Desk Located on the | [address] | | | | | 9th floor | [phone] | | | | | [place], [place] | | | | | | [address] | | | +--------+---------+ + + + [...] yuriy tral hernia. She was transferred from [facility] for surgical evaluation of possible incarcer ated [...] yuriy tral hernia. She was transferred from [facility] for surgical evaluation of possible incarcer ated [...] is very important that you walk at [employer] t three times a day. These can [...] keeping you from eating and drinking, Call [phone]. It is important to stay hydrated! If [...] ONLY REFILLED during CLINIC APPOINTMENTS. Please call [phone] to schedule an appointment. Your Follow-Up Plan Follow up with ROBIN MEJIA in 2 weeks. Contact information: [address] [facility] [address] Vitals on discharge: Ht 154.9 cm (5' [...] be different f rom the original. [facility] [...] clinic - [place]. [place] [phone] pager number [facility] [phone] [facility] [phone] Aminta Goodwin Md - 11/11/2012 7:40 AM PDT [facility] DEPARTMENT OF SURGERY EMERGENCY GENERAL SURGERY Division of Trauma and Critical Care Attending Physician: Andie Chun MD Progress Note Note Date: 11/11/2012 Admission Date: 11/06/2012 DYLAN ROMERO, [id number] Hospital Day #5 INTERVAL EVENTS none acute [...] mg, Rectal, DAILY PRN, Aminta Wilson MD wrtrgfeixk-qzmceanwywhzl-bmrtwrvl (aka FIORICET) 50-325-40 mg 1 Tab, 1 [...] Jayne Ponce MD, 1 mg at 11/10/12801 gmedvxpnzo-qopucsfaudbrm-xicokfxr (aka FIORICET) 50-325-40 mg 1 Tab, 1 Tab, Oral, Q4H PRN, Kaleb Wing NP, 1 Tab at 11/10/12801 ciprofloxacin (aka CIPRO) tablet 500 mg, 500 mg, Oral, BID, Aminta Wislon MD, 500 mg at 11/10/12801 dextrose IV [...] in preservative free NaCl 0.9% 50 mL MEMBERSHIP SOLICITOR infusion, , Intravenous, KIESHA NUOUS, Aracely Ferronato, [...] diet -add bowel regimen Acute pain -HM MEMBERSHIP SOLICITOR, tylenol -convert to oral pain medication once [...] Fluids: LR 125ml/hr Feeding: NPO Analgesia: Dilaudid MEMBERSHIP SOLICITOR Sedation: not indicated Thromboprophylaxis: enoxaparin Head of [...] Jayne Ponce MD, 650 mg at 11/09/12 2207 ALPRAZolam (aka XANAX) tablet 1 mg, 1 mg, Oral, TID, Jayne Ponce MD, 1 mg at 11/09/12 0855 wyduccxsmc-nvyvbvckjcgnx-gnizwxia (aka FIORICET) 50-325-40 mg 1 Tab, 1 [...] in preservative free NaCl 0.9% 50 mL MEMBERSHIP SOLICITOR infusion, , Intravenous, KIESHA NUOUS, Aracely Flores [...] drainage <30ml for 24hrs Acute pain -HM MEMBERSHIP SOLICITOR, tylenol Diabetes: -insulin gtt not started due [...] Fluids: LR 125ml/hr Feeding: NPO Analgesia: Dilaudid MEMBERSHIP SOLICITOR Sedation: not indicated Thromboprophylaxis: enoxaparin Head of bed: > 30 Ulcer prophylaxis: pepcid Glycemic control: adequate Activity/PT/OT: Ongoing Yogurt: ABX on Probiotics:yes AMINTA WILSON MD General Surgery, R1 Judenaeem Kaleb S, N P - 11/08/2012 8:49 AM PDT [facility] DEPARTMENT OF SURGERY EMERGENCY GENERAL SURGERY Division of Trauma and Critical Care Attending Physician: Andie Chun MD Progress Note Note Date: 11/08/2012 Admission Date: 11/06/2012 DYLAN ROMERO, [id number] Hospital Day #2 INTERVAL EVENTS NO SUBJECTIVE Pain well controlled; has headache attributed to dilaudid MEMBERSHIP SOLICITOR Tylenol did not help. Flatus: YES Tolerating [...] trials today. -YAO kilgore Acute pain -HM MEMBERSHIP SOLICITOR, tylenol Diabetes: -insulin gtt not started due [...] Fluids: LR 125ml/hr Feeding: NPO Analgesia: Dilaudid MEMBERSHIP SOLICITOR Sedation: not indicated Thromboprophylaxis: enoxaparin Head of bed: > 30 Ulcer prophylaxis: pepcid Glycemic control: adequate Activity/PT/OT: Ongoing Yogurt: ABX on Probiotics: No KALEB WING NP [facility] [place] [address] Kelvin Lobato MD - 11/07/2012 9:51 PM [...] 7.33* PCO2 49* PO2 113* HCO3 25 VTZFO3HRE 26 B8METLJI 98.3* H9JMFWBFX -- FIO2 60 ABGEXCESS -0.9 Assessment, Medical Decision Making and Plan 1. Incarcerated hernia, now s/p repair and panniculectomy -Binder, pain control, minimize nausea and coughing PRN. -NG clamping trials today. 2. Acute pain -HM MEMBERSHIP SOLICITOR, tylenol 3. Diabetes: -insulin gtt 4. Morbid [...] Dione Nickerson MD R-2, General Surgery Pager: [phone] [facility] [place] Department of Surgery Trauma ICU Team Pager (24hrs/day): [phone] I was present with the resident during the history and exam. I discussed the case with the resident and agree with the findings and plan as documented in the resident s note. KELVIN SPENCE MD [facility] [address] [place] [address] [phone] uddbarb, Onur Marcelino MD - 11/07/2012 2:37 [...] in preservative free NaCl 0.9% 50 mL MEMBERSHIP SOLICITOR infusion Intravenous CON TINUOUS Aracely Ferronato, DO [...] Onur Allen MD 150 mg at 11/06/12 2254 Assessment & Plan: Dylan Romero is a 37 y.o. Morbidly obese female who presented with an incarcerated vent ral hernia who is now POD#1 s/p primary repair. 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 director multimedia and prn tylenol, continue prozac and zyprexa [...] F: probable remain NPO today A: dilaudid director multimedia, prn tylenol S: prn benzos as she is at home T: will start prophylactic lovenox today H: HOB >30 degrees U: pepcid G: insulin gtt ONUR ALLEN MD, PGY3 [facility] [id number]uhs[address]t [place] [address] Onelia Shrestha MD - 11/06/2012 8:41 AM PDT [facility] DEPARTMENT OF SURGERY Division of Trauma and Critical Care Emergency General Surgery / Acute Care Surgery Attending Physician: Andie Chun MD Note Date: 11/06/2012 Admission Date: 11/06/2012 DYLAN ROMERO, [id number] Hospital Day #0 OVERNIGHT EVENTS: anxious SUBJECTIVE: [...] wwp LABS: reviewed and are available in [facility] (if new data) IMAGING: VASCULAR: IMPRESSION: [...] and needs fluid resuscitation. ANDIE CHUN MD [facility] [address] [place] [address] emarcus Christopher MD - 0 11/05/2012 10:24 [...] She presents today as a transfer from [facility] with concern for possible incarcerated marguerite ia. [...] She presents today as a transfer from [facility] with concern for possible incarcerated marguerite ia. [...] inferior abdo stephany ventral hernia transferred to [facility] over concern for incarcerated hernia. The hernia w as non reducible, but was limited by pain on exam. Her hernia does appear incarcerated. 1. Admit to Surgery 2. NPO, NGT tube 3. MIVF with LR at 75ml/hr 4. Cbc, cmp, inr 5. Restart home medications 6. Incarcerated hernia -CT scan vs. OR today Demarcus Christopher MD, PGY1 [facility] [address] [place] [address] documented in this enc ounter Procedure Notes Danny Liu MD - 11/07/2012 9:07 AM PDTAssociated Order(s): REPAIR, VENTRAL HERNIA, I NCARCERATED, INITIALProcedure(s): REPAIR, VENTRAL HERNIA, INCARCERATED, INITIALPre-Procedure Diagnose(s): Incarcerated ventral herniaPost-Procedure Diagnose(s): Incarcerated ventral he rniaOperative Report Identifying Data: Dylan Romero [id number] Author: Danny Liu MD Date: 11/06/2012 Attending Surgeon and Service: Attending: Hernandez Chun MD Service: Emergency General Surgery Date of Procedure: 11/06/2012 Preoperative Diagnosis: Incarcerated Ventral Hernia Postoperative Diagnosis: Same Procedure Performed: 1) Exploratory laparotomy 2) Excision of excess skin and chronic wound infection 3) Primary ventral hernia repair 4) 19Fr Round Vanessa Drain 5) Staple skin closure Primary Surgeon: Hernandez Chun MD Past Due Accounts Clerk Surgeons: MD Danny Kovacs MD Type of [...] for the entire procedure. DANNY LIU MD [id number] [place] [address] Danny Fowler MD - 11/06/2012 2:07 PM [...] of excess skin and chronic wound, [facility] ventral hernia repair, 19Fr Round Vanessa drain, [...] suture and skin contreras. DANNY LIU MD [facility] [id number] [place] [address] documented in this encounter Consult Notes Raisa Landaverde MD - 11/06/2012 3:48 PM PDTI was present and rounded with the CERTIFIED MEDICAL BILLER today. I interviewed and examined the patient. I reviewed the history, as documented today. I agr ee with the CERTIFIED MEDICAL BILLER's assessment and plan. No evidence of bleeding. Will follow. Will wean to pre ssure support as tolerated. May need bronchoscopy. Critcal care time: 35 minutes RAISA LANDAVERDE MD [facility] [address] [place] [address] guyen Canseco PA-C - 11/06/2012 3:48 PM [...] by the attending physician. NGUYEN CANSECO PA-C [facility] [id number] [place] [address] documented in this en counter Miscellaneous Notes [...] be driving pt to her home in [place]. No needs from at this time. Luz [...] and mo bility progress. 5. Assess skin Q5reihj and PRN. Educate on prevention of skin breakdown. Elevate heels and other pressure points. Ask MD to order nystatin powder for application underneath pannus. 6. Assess n/v I9fxyhm and PRN. Treat with PRN and/or scheduled [...] and mo bility progress. 5. Assess skin F4rniwi and PRN. Educate on prevention of skin breakdown. Elevate heels and other pressure points. Ask MD to order nystatin powder for application underneath pannus. 6. Assess n/v J4tlgwn and PRN. Treat with PRN and/or scheduled anti-emetics. Educate on alt ernative techniques for nausea management (i.e. Side lying, distraction, deep breathing). andoff - Claudia Braga RN - 11/12/2012 6:26 AM PDTPrimary focus of stay: 37 female admit from [facility] w/ pos sible incarcerated hernia, N/V, abdominal [...] 5/10 this shift and transitioni ng off MEMBERSHIP SOLICITOR 2. Patient will demonstrate adequate oxygenation and perfusion d/b spo2>90% on RA this kristin ft. Interventions: 1. Patient will be encouraged to ask for oral pain med and use MEMBERSHIP SOLICITOR sparingly. 2. Encourage patient to roll on [...] much pain medication patient is using on MEMBERSHIP SOLICITOR 6. Administer migraine medication PRN for headache 7. Administer 1 L O2 when patient is sleeping 8. Evaluate patient's fluid balance and discuss with MD to DC her fluid since she is now t aking decent amount of liquid intake. Interventions that worked/didn't work:Patioent seems to be very comfortable but when woken up or when moving, she co pain 8/10. MEMBERSHIP SOLICITOR was not used since 99. MD did [...] -drsg changed 11/08 , LR @ 125, MEMBERSHIP SOLICITOR 0.1 q 8. Oral pain med given q 3 hour s 10 to 15 mg. Please try to wean off MEMBERSHIP SOLICITOR Diet/GI:, CL, passing gas, BM meds started(11/10) CBGs: q6 : voids in BR, UTI Mobility: SBA, hats in BR. Only ambulated to BR tonight Wounds/Drains: transverse abdominal incision intact with contreras, instant potato processing supervisor, DIAMOND drain x 1, needs frequent emptying, skin breakdown under pannus,wash, clean dry apply nystatin powder Critical labs: Critical meds: Antibiotics started for UTI Orders to follow up on: IV Mg replacement Last pain assessment/reassessment: abd pain 5-7/10, total 15mg oxygiven in 1.5 hours, MEMBERSHIP SOLICITOR used minimally, turned off at around 4 [...] 5/10 this shift and transitioni ng off MEMBERSHIP SOLICITOR 2. Patient will demonstrate adequate oxygenation and perfusion d/b spo2>90% on RA this kristin ft. Interventions: 1. Patient will be encouraged to ask for oral pain med and use MEMBERSHIP SOLICITOR sparingly. 2. Encourage patient to roll on [...] much pain medication patient is using on MEMBERSHIP SOLICITOR 6. Administer migraine medication PRN for headache [...] -drsg changed 11/08 , LR @ 125, MEMBERSHIP SOLICITOR 0.2 q 8. Oral pain med given at 5pm Diet/GI:, CL, passing gas, BM meds started(11/10) CBGs: q6 : voids in BR, UTI Mobility: SBA, hats in BR. Only ambulated to BR tonight Wounds/Drains: transverse abdominal incision intact with contreras, instant potato processing supervisor, DIAMOND drain x 1, needs frequent emptying, [...] control Prevent infection Interventions:assess the effectiveness of MEMBERSHIP SOLICITOR at least Q 4hrs, encourage IS and ambulation, monitor vital signs, notify MD for any uncontrolled pain beyond prn medications, monitor wo und. Interventions that worked/didn't work:in process Of switching director multimedia to oral pain medication, VSS, no acute [...] in 1-2 days. Barry Cerrato RN, BSN News [place] [address] /[email or web address] berrien eronique Castro - 11/10/2012 9:00 AM PDTProblem: General Plan of Care (Adult) Intervention: NPEOC Acute Goals:pain under control Prevent infection Interventions:assess the effectiveness of MEMBERSHIP SOLICITOR at least Q 4hrs, encourage IS and [...] will be encouraged/instructed on proper use of MEMBERSHIP SOLICITOR and to inform RN if pain not [...] much pain medication patient is using on MEMBERSHIP SOLICITOR 6. Administer migraine medication PRN for headache Interventions that worked/didn't work:Patient was drowsy after her night medication, barely used her MEMBERSHIP SOLICITOR. Turned rate down d/t desat. May turn [...] -drsg changed 11/08 , LR @ 125, MEMBERSHIP SOLICITOR 0.3 q 8. MEMBERSHIP SOLICITOR turned down to 0.1 q 8 minutes at 0400 Diet/GI: NPO exc meds, ice chips ok, passing gas CBGs: q6 : voids in BR, UTI Mobility: SBA, hats in BR. Only ambulated to BR tonight Wounds/Drains: transverse abdominal incision intact with contreras, instant potato processing supervisor, DIAMOND drain x 1, needs frequent emptying, skin breakdown under pannus,wash, clean dry apply nystatin powder,pillow case x2 Critical labs: Critical meds: Antibiotics started for UTI Orders to follow up on: IV Mg replacement Last pain assessment/reassessment: 444, pt drowsy but MEMBERSHIP SOLICITOR was used minimally since 2329. I believe her Bipolar med and Trazadone made her drowsy. Awakable but went back to sleep ri ght away. Refused toileting when offered twice since 330. Absent of pain. pain well contro lled with MEMBERSHIP SOLICITOR and prn meds Toradol, for headache, Floricet [...] will be encouraged/instructed on proper use of MEMBERSHIP SOLICITOR and to inform RN if pain not [...] much pain medication patient is using on MEMBERSHIP SOLICITOR 6. Administer migraine medication PRN for headache [...] 7/10 in abdomen, RN aware. addressed with MEMBERSHIP SOLICITOR. Objective: Education: patient able to recall all [...] chair T ID Clau Quintero DPT Pager [phone] valuation - Brendon Mcgowan RN - 11/09/2012 1:05 PM PDTProblem: Pain Chronic (Adult, Obstetrics) Goal: Identify Signs and Symptoms and Related Risk Factors Goals: 1. Patient's pain will adequately controlled at or below a 5/10 this shift. 2. Patient will demonstrate adequate oxygenation and perfusion d/b spo2>90% on RA this kristin ft. Interventions: 1. Patient will be encouraged/instructed on proper use of MEMBERSHIP SOLICITOR and to inform RN if pain not adequately controlled. MEMBERSHIP SOLICITOR dose will be titrated for adequate pain [...] -drsg changed 11/08 , LR @ 125, MEMBERSHIP SOLICITOR 0.3 q 8 Diet/GI: NPO exc meds, [...] Last pain assessment/reassessment: pain well controlled with MEMBERSHIP SOLICITOR and prn meds Toradol, for headache, Nubain [...] will be encouraged/instructed on proper use of MEMBERSHIP SOLICITOR and to inform RN if pain not adequately controlled. MEMBERSHIP SOLICITOR dose will be titrated for adequate pain relief, patient encoura ged to position for comfort and to utilize non-pharmacologic interventions such as hot/cold packs. 2. Patient will practice cdb/IS exercises 10x per hour, pt will ambulate in hallway x3, si t up to chair x3 this shift, and spo2 levels will be checked with vital signs. lan of Yuli Eaton RD, CSCNYDEE, LD - 11/09/2012 10:51 AM PDTProblem: Nutrition [...] Following Yuli Childs RD, CNSC, LD Pager# [phone] Comments: Dylan Romero is a 37 y.o. [...] IBW)Kaykay buenrostro signed by Yuli Childs RD, C[facility]AST[facility], LD at 11/09/2012 11:05 AM PDTEvaluation - [...] mbulation and mobility progress. 5. Assess skin L9xfrsr and PRN. Educate on prevention of skin breakdown. Elevate heels and other pressure points. Ask MD to order nystatin powder for application underneath pannus. 6. Assess n/v B1dtjda and PRN. Treat with PRN and/or scheduled anti-emetics. Educate on alt ernative techniques for nausea management Interventions that worked/didn't work:Pt continues to refuse to turn in bed, pain controlle d with MEMBERSHIP SOLICITOR Dilaudid,denied nausea My recommendations forward:Encourage ambulation, good [...] -drsg changed today , LR @ 125, MEMBERSHIP SOLICITOR 0.2 q 8 Diet/GI: NPO exc meds, ice chips ok, passing gas CBGs: q6 : voids Mobility: SBA, up in chair once this shift Wounds/Drains: transverse abdominal incision, DIAMOND drain x 1, skin breakdown under pannus,was h, clean dry apply nystatin and cream,pillow case x1 Critical labs: Critical meds: UA sent Orders to follow up on: Last pain assessment/reassessment: pain well controlled with MEMBERSHIP SOLICITOR and prn meds Toradol, for headache, Nubain [...] mbulation and mobility progress. 5. Assess skin T6strts and PRN. Educate on prevention of skin breakdown. Elevate heels and other pressure points. Ask MD to order nystatin powder for application underneath pannus. 6. Assess n/v M7vvcro and PRN. Treat with PRN and/or scheduled [...] Chest X-ray: CXR * 11/06/2012 Value: STUDY: [place] CHEST 1 VIEW 11/06/12 16:46:00 INDICATION: Right upper lobe opacity. COMPARISON: Earlier same day a STUDY: [place] CHEST 1 VIEW 11/06/12 16:46:00 COMPARISON: None. [...] at home for her lungs and can pulling unit floorhand 1500mls on incentive spirometer. No treatment Nee ded from RT standpoint. valuation - Geneva Villalobos RN - 11/08/2012 11:58 AM PDTNo notes of Plan of Care type on file. Interventions that worked/didn't work:Goals:to get OOB, to have a sponge bath, pain managem ent, to advance diet, change CVC Interventions:assist with ambulation, 2 person, up to the chair, MEMBERSHIP SOLICITOR, iv toradol, tylenol a s needed for headache, ice chips, CERTIFIED MEDICAL BILLER at the bedside , reposition, help/assist student [...] -drsg changed today , LR @ 125, MEMBERSHIP SOLICITOR 0.2 q 8 Diet/GI: NPO exc meds, [...] Last pain assessment/reassessment: pain well controlled with MEMBERSHIP SOLICITOR and prn meds Toradol, for headache, Nubain [...] tive device. Patient used motorized scooter in [facility] only. Patient / Family Goal: To return home Communication: Japanese Barriers: none Pain: 7/10 in abdomen at rest; pressed MEMBERSHIP SOLICITOR appropriately Vital signs: stable per observation on [...] 5) Staple skin closure Pre-admission living situation: [place], [place] Pre-admission functional status: Independent Family/support system: Jazmyn Darden Insurance/funding in place: [employer] [place] - Plus Anticipated discharge needs: Likely DC home, following for needs. Barry Cerrato RN, BSN [facility] and [address] [address] [email or web address] [phone]/pg [phone] andoff - Ramon Austin RN - 11/08/2012 2:53 AM PDTRN EGS Handoff Report Primary focus of stay: incarcerated bowel and ileus, hernia repair 11/06 PmHx: HTN, DM, bipolar, depression, anxiety, migraines Pertinent physical findings: Vitals: vitals stable, but tachy at times Respiratory status: 4L NC, diminished in bases Isolation Precautions: none Access/fluids: RIJ and L PIV, LR @ 125, MEMBERSHIP SOLICITOR 0.2 q 8 Diet/GI: NPO exc meds, [...] Last pain assessment/reassessment: pain well controlled with MEMBERSHIP SOLICITOR/ Pt does think Dilaudid is giving her [...] mbulation and mobility progress. 5. Assess skin M4uowdp and PRN. Educate on prevention of skin breakdown. Elevate heels and other pressure points. Ask MD to order nystatin powder for application underneath pannus. 6. Assess n/v Y2lyqmn and PRN. Treat with PRN and/or scheduled [...] RIJ and L PIV, LR @ 125, MEMBERSHIP SOLICITOR 0.2 q 8 Diet/GI: NPO exc meds, NGT d/c today CBGs: q6 : FC Mobility: SBA, ambulated today on ICU Wounds/Drains: transverse abdominal incision, DIAMOND drain x 1, skin breakdown under pannus Critical labs: Critical meds: insulin drip?? Orders to follow up on: clarify insulin drip order Last pain assessment/reassessment: pain well controlled with MEMBERSHIP SOLICITOR Psych/social issues: can be anxious at times Last visit (i.e. Falls/Activity/Comfort/Environment/Toileting/Skin): resting comfortably Anticipated or pending procedures: possible future [place] Discharge plan: TBD lan of Care - Zari Goodrich, [facility] - 11/07/2012 11:10 AM PDT Problem: [...] Chest X-ray: CXR * 11/06/2012 Value: STUDY: [place] CHEST 1 VIEW 11/06/12 16:46:00 INDICATION: Right upper lobe opacity. COMPARISON: Earlier same day a STUDY: [place] CHEST 1 VIEW 11/06/12 16:46:00 COMPARISON: None. [...] mbulation and mobility progress. 5. Assess skin C5hxtij and PRN. Educate on prevention of skin breakdown. Elevate heels and other pressure points. Ask MD to order nystatin powder for application underneath pannus. 6. Assess n/v E9xaswz and PRN. Treat with PRN and/or scheduled [...] mbulation and mobility progress. 5. Assess skin P5sznfa and PRN. Educate on prevention of skin breakdown. Elevate heels and other pressure points. Ask MD to order nystatin powder for application underneath pannus. 6. Assess n/v Q6hoosd and PRN. Treat with PRN and/or scheduled anti-emetics. Educate on alt ernative techniques for nausea management (i.e. Side lying, distraction, deep breathing). Pl amanda NGT if ordered. andoff - Maria Luz, Claudia mujica RN - 11/06/2012 5:42 AM PDTRN EGS Handoff Report Primary focus of stay: 37 female admit from [facility] w/ possible incarcerated hernia, N/V, abdominal pain [...] in am, possible surgery? [facility] - 11/06/2012 12:05 AM PDTDr Ny adv having trouble getting transport. Unable air. Th ey are trying to get a ground unit together. Unk T [facility] - 11/05/2012 10:54 PM PDTPer PPO pt [facility] - 11/05/2012 10:06 PM PDTConnected. 37 yof. Had appendectomy previ ously, developed hernia on L side of incision. Appears to be incarcerated possibly strangula emely. Pt 404 lbs. Unable to get CT scanned. Pt vomiting, started at [address] Chun accepts pt with a bariatric bed, req 14A. Paged grp 18. [facility] - 11/05/2012 10:[address] Ramires. Paged EGS [address] Chun. documented in this encounter Plan of Treatment +--------+ + + + + | Date | Type | Specialty | Care Team | Description | +--------+ + + + + | 04/04/ | Telephone-S | Surgery | Orquidea Cristobal, | | | 2020 | sherrill | | BIOPROCESS ENGINEER [address] | | | | | | [place], [place] | | | | | | [address] | | | | | | [phone] | | | | | | | [...] Mae | | | | | | [place] | | | | + + + [...] [facility] | [address] | [place], [place] | | | [place] | [address] | [address] | | | TESTS | | | [...] - [place] | [address] | [place], [place] | | | [place] OF CARE | [address] | [address] | | | TESTS | | | [...] | + + + + + | [facility] | [address] | [place] [address] | | | SERVICES, CORE | PARK [...] | [facility] | [address] | [place] [address] | | | SERVICES, LYDIA | CLARENCE [...] [facility] | [address] | [place] [address] | | | CLAIRE, LYDIA | CLARENCE [...] (H) | 60 - 99 mg/dL | [facility] [...] [facility] | [address] | [place], [place] | | | [facility] [place] | [facility] | [address] | | | TESTS | | | [...] [facility] | [address] | [place], [place] | | | [place] [facility] CARE | [address] | [address] | | | TESTS | | | [...] [facility] | [address] | [place], [place] | | | [facility] CARE | [facility] | [address] | | | TESTS | | | [...] [facility] | [address] | [place], [place] | | | [facility] [place] | [facility] | [address] | | | TESTS | | | [...] [facility] | [address] | [place], [place] | | | [facility] [place] | [address] | [address] | | | TESTS | | | [...] | [facility] | [address] | [place] [address] | | | SERVICES, CORE | CLARENCE [...] the MDRD equation recommended by the | [facility] | | National Kidney Disease [...] | + + + + + | [facility] | [address] | [place] [address] | | | SERVICES, CORE | [address] | | | + + + + + MAGNESIUM, PLASMA (11/11/2012 3:38 AM PDT) + +---------+ + + + | Component | Value | Ref Range | Performed | Pathologist | | | | | At | Signature | + +---------+ + + + | MAGNESIUM,P | 1.5 (L) | 1.8 - 2.5 mg/dL | [facility] | | | LASMA | | | [...] | [facility] | [address] | [place] [address] | | | SERVICES, CORE | CLARENCE [...] [facility] | [address] | [place], [place] | | | [facility] CARE | [address] | [address] | | | TESTS | | | [...] - [facility] | [address] | [place], [place] | | | [facility] CARE | [facility] | [address] | | | TESTS | | | [...] [facility] | [address] | [place], [place] | | | [place] OF CARE | [address] | [address] | | | TESTS | | | [...] [facility] | [address] | [place], [place] | | | [facility] [place] | [address] | [address] | | | TESTS | | | [...] - [facility] | [address] | [place], [place] | | | [place] [facility] | [facility] | [address] | | | TESTS | | | [...] [facility] | [address] | [place] [address] | | | SERVICES, CORE | PARK [...] | [facility] | [address] | [place] [address] | | | SERVICES, CORE | PARK [...] [facility] | [address] | [place] [address] | | | SERVICES, CORE | PARK [...] [facility] | [address] | [place], [place] | | | [facility] [place] | [facility] | [address] | | | TESTS | | | [...] [facility] | [address] | [place], [place] | | | [facility] CARE | [address] | [address] | | | TESTS | | | [...] [facility] | [address] | [place], [place] | | | [place] OF CARE | [address] | [address] | | | TESTS | | | [...] + | [facility] | [address] | [place] [address] | | | [place] | | | [...] [facility] | [address] | [place] [address] | | | SERVICES, CORE | PARK [...] | [facility] | [address] | [place] [address] | | | SERVICES, CORE | CLARENCE [...] [facility] | [address] | [place], [place] | | | [facility] [place] | [address] | [address] | | | TESTS | | | [...] [facility] | [address] | [place] [address] | | | SERVICES, CORE | PARK [...] | + + + + + | [facility] | [address] | [place] [address] | | | SERVICES, CORE | PARK [...] | [facility] | [address] | [place] [address] | | | SERVICES, LYDIA | CLARENCE [...] [facility] | [address] | [place], [place] | | | [facility] CARE | [address] | [address] | | | TESTS | | | [...] [facility] | [address] | [place], [place] | | | [place] CARE | [address] | [address] | | | TESTS | | | [...] + + + | [facility] | [address] | [place], [place] | | | [place] [facility] | [address] | [address] | | | TESTS | | | [...] | [facility] | [address] | [place] [address] | | | SERVICES, CORE | PARK [...] | + + + + + | [facility] | [address] | [place] [address] | | | CLAIRE, LYDIA | CLARENCE [...] | + + + + + | [facility] | [address] | [place] [address] | | | SERVICES, CORE | CLARENCE [...] [facility] | [address] | [place], [place] | | | [facility] [place] | [address] | [address] | | | TESTS | | | [...] [facility] | [address] | [place], [place] | | | [facility]ARE | [address] | [address] | | | TESTS | | | [...] [facility] | [address] | [place], [place] | | | [place] [facility] | [address] | [address] | | | TESTS | | | [...] | + + + + + | [facility] | [address] | [place] [address] | | | SERVICES, CORE | PARK [...] | [facility] | [address] [facility] | [place] [address] | | | SERVICES, CORE | CLARENCE [...] the MDRD equation recommended by the | [facility] | | National Kidney Disease [...] | + + + + + | [facility] | [address] | [place] [address] | | | SERVICES, CORE | [address] | | | + + + + + X-RAY PORTABLE CHEST 1 VIEW (11/06/2012 4:46 PM PDT) + + + + + + | Component | Value | Ref Range | Performed | Pathologist | | | | | At | Signature | + + + + + + | X-RAY | STUDY: [place] CHEST 1 VIEW | | | | | PORTABLE | 11/06/12 16:46:00 | | | | | CHEST 1 | INDICATION: Right upper | | | | | VIEW | lobe opacity. | | | | | | COMPARISON: Earlier same | | | | | | day a STUDY: [place] CHEST 1 | | | | | [...] + + + | X-RAY | STUDY: [place] CHEST 1 VIEW | | | | [...] [facility] | [address] | [place] [address] | | | SERVICES, CORE | CLARENCE [...] | + + + + + | [facility] | [address] | [place] [address] | | | LYDIA RANGEL | CLARENCE [...] [facility] | [address] | [place] [address] | | | SERVICES, CORE | PARK [...] [facility] | [address] | [place], [place] | | | [facility]ARE | [address] | [address] | | | TESTS | | | [...] [facility] | [address] | [place], [place] | | | [facility]ARE | [address] | [address] | | | TESTS | | | [...] [facility] | [address] | [place], [place] | | | [facility] [place] | [address] | [address] | | | TESTS | | | [...] [facility] | [address] | [place], [place] | | | [facility] [place] | [facility] | [address] | | | TESTS | | | [...] - [facility] | [address] | [place], [place] | | | [place] OF CARE | [address] | [address] | | | TESTS | | | [...] [facility] | [address] | [place], [place] | | | [place] [facility] | [address] | [address] | | | TESTS | | | [...] [facility] | [address] | [place], [place] | | | [facility] [place] | [facility] | [address] | | | TESTS | | | [...] - [facility] | [address] | [place], [place] | | | [facility]ARE | [address] | [address] | | | TESTS | | | [...] [facility] | [address] | [place], [place] | | | [place] OF CARE | [address] | [address] | | | TESTS | | | [...] [facility] | [address] | [place], [place] | | | [facility] CARE | [address] | [address] | | | TESTS | | | [...] [facility] | [address] | [place], [place] | | | [place] OF CARE | [address] | [address] | | | TESTS | | | [...] | + + + + + | [facility] | [address] | [place] [address] | | | SERVICES, | [address] [...] - [facility] | [address] | [place], [place] | | | [facility] | [facility] | [address] | | | TESTS | | | [...] [facility] | [address] | [place] [address] | | | SERVICES, | [address] [...] [facility] | [address] | [place] [address] | | | SERVICES, | [address] [...] [facility] | [address] | [place] [address] | | | SERVICES, CORE | PARK [...] | [facility] | [address] | [place] [address] | | | SERVICES, CORE | CLARENCE [...] [facility] | [address] | [place] [address] | | | LYDIA RANGEL | CLARENCE [...] | + + + + + | [facility] | [address] | [place] [address] | | | SERVICES, LYDIA | CLARENCE [...] | [facility] | [address] | [place] [address] | | | SERVICES, CORE | CLARENCE [...] view image for the detailed interpretation from [employer] results. | CARDIOLOGY | + + + + + + + + | Performing | Address | City/State/Zipcode | Phone Number | | Organization | | | | + + + + + | [facility] | [address] | [place], [place] | | | CARDIOLOGY | [address] | [address] | | + + + + + [...] [facility] | [address] | [place] [address] | | | SERVICES, CORE | PARK [...] [facility] | [address] | [place] [address] | | | SERVICES, CORE | [address] | | | + + + + + documented in this encounter Visit Diagnoses + + | Diagnosis | + + | Incarcerated ventral hernia Ventral hernia, unspecified, with obstruction | + + documented in this encounter
--- OUTSIDE RECORDS SUMMARY | ~2020-03-23 | XMS | Encounter Summary ---
Demographics + + + | Address | [address] | | | [place] [address] | + + + | Home Phone [...] | Organization | [facility] [...] Providers + +------+ + | Care News Gathering Technician Name | Role | Phone | [...] + + | 06/27/ | Telephone | [facility] | Dharmesh Fierro, | Follow-up(Procedure) | | 2018 | | INTERVENTIONAL | RN | | | | | RADIOLOGY [address] | | | | | | [address] | | | | | | [place] | | | | | | [address] | | | | | | [phone] | | | +--------+ + + + [...] RICHEY | | | | | | [place] [address] | | | | | | [phone] | | | | | | | | +--------+ + + + + | 04/18/ | Procedure | Neurology | Camille De La Paz, | | | 2019 | visit | | MD Saumya MOE | | | | | | [address] | | | | | | [place] [address] | | | | | | [phone] | | | | | | | | +--------+ + + + + documented as of this encounter Visit Diagnoses Not on filedocumented in this encounter"
--- OUTSIDE RECORDS SUMMARY | ~2020-03-23 | XMS | Encounter Summary ---
Demographics + + + | Address | [address] | | | [place] [address] | + + + | Home Phone [...] [place], [place] | | | | | [address] | | + + + + + | Ellie Vang | ECON | Unknown | | + + + + + Care Team Providers + +------+ + | Care Kettle Worker Name | Role | Phone | [...] | REPAIR | | | | [facility] | [address] | | | | | Hospital Admitting | [place], [place] | | | | | Desk Located on the | [address] | | | | | 9th floor | [phone] | | | | | [place], [place] | | | | | | [address] | | | +--------+---------+ + + + [...] the gallo. She was transitioned off her HEALTH POLICY ANALYST on POD1. She di d have difficulty [...] She will follow up at the [facility] with Dr. Woo in 2- 3 [...] by mouth once daily at bedtime. CALCIUM [id number]-GENIS ORAL Take 2 tablets by mouth two [...] daily. ASK your doctor about these medications ACCOUNT SOLUTIONS ANALYST THYROID 30 mg Tab tab Generic drug: [...] the prescribed narcotic-opioid (e.g. oxycodone, hydrocodone, Vicodin, Pierre Part, Percocet, Dilaudid) as needed. However, Vicodin/Pierre Part and Percocet contain acetam inophen in the [...] Narcotic-opioid pain medications (e.g. oxycodone, hydrocodone, Vicodin, Pierre Part, Percocet, Di laudid) can be constipating, therefore you should take a stool softener on the same day as s tarting your narcotic pain medicine. Options include: Milk of Magnesia: 2 Tablespoons Twice daily Colace (=Docusate): 1 pill Twice daily Miralax: 1 Tablespoon (17 grams) daily (check bottle for mixing instructions) While these are some recommendations, any pueq-xkc-qzezeow stool softener should work, and generics are [...] and plan of care. JONES WOO MD [facility] [address] [place] [address] documented in this encounter Discharge Instructions Discharge [...] hours by calling the surgery office at [phone]. After hours, weekends and holidays, you may call the hospital coning machine operator at [phone] and have the calibration engineer Green Team for general surgery paged. Discharge [...] the gallo. She was transitioned off her HEALTH POLICY ANALYST on POD1. She did have dif ficulty [...] dition. She will follow up at the [facility] with Dr. Woo in weeks. She will also follow up in her anticoagulation clinic in the [facility] several days for warfarin m anagement. Discharge [...] the prescribed narcotic-opioid (e.g. oxycodone, hydrocodone, Vicodin, Pierre Part, Percocet, Dilaudid) as needed. However, Vicodin/Pierre Part and Percocet contain acetam inophen in the [...] Narcotic-opioid pain medications (e.g. oxycodone, hydrocodone, Vicodin, Pierre Part, Percocet, Di laudid) can be constipating, therefore you should take a stool softener on the same day as s tarting your narcotic pain medicine. Options include: Milk of Magnesia: 2 Tablespoons Twice daily Colace (=Docusate): 1 pill Twice daily Miralax: 1 Tablespoon (17 grams) daily (check bottle for mixing instructions) While these are some recommendations, any pdry-khg-ojghrhv stool softener should work, and generics are fine to use. Increase your fluids, especially your intake of water Increase your activity. Walk frequently. ANTICOAGULATION: We recommend you make an appointment to be seen in your local anticoagulation clinic on Thu08/25/19 to recheck your INR and for ongoing management of your warfarin. FOLLOW-UP: Please call Dr. Woo's office ([phone]) to schedule a follow-up appointment for 2-3 [...] | | 0 | | | | CRB&[id number]-[id number]-[id number]-GEN | mouth two times | | | [...] + + +---------+ + + | thyroid (ACCOUNT SOLUTIONS ANALYST | Take 30 mg by mouth | [...] assist PRN. Anticipate discharge michelle Chandler MD [facility], PGY-1 [place] [facility] Pager: [phone] signed by Jones Woo MD at 08/22/2019 [...] dc in 2-3 days Gadiel Chandler MD [facility], PGY-1 [place] [employer] Pager: [phone] Associated attestation - Jones Woo MD - 08/21/2019 9:57 AM PSTI performed a hist ory and physical examination of the patient and discussed her management with the resident. I reviewed the resident s note and agree with the documented findings and plan of care. JONES WOO MD [facility] [address] [place] [address] Valencia Zamora MD - 08/20/2019 8:42 AM [...] well. - kilgore out today - dc HEALTH POLICY ANALYST - ppx lovenox today - therapeutic lovenox [...] care -Multimodal pain control Joselyn Everett MD [facility] General Surgery PGY1 [id number] Gadiel Armstrong MD - 08/19/2019 12:34 PM [...] Gadiel Chandler MD [facility], PGY-1 [facility] Food Inspector Pager: [phone] documented in this encounter H&P Notes Jones Woo MD - 08/18/2019 3:54 PM PST DEPARTMENT OF SURGERY [facility] History and Physical Patient: Dylan Romero ([id number]) Date: 08/18/2019 Chief Complaint: Abdominal pain History [...] days and worsening pain sp driving to [facility] from [email or web address]. Past Surgical History Procedure Laterality Date Tonsillectomy [...] nish limb 150 cm or less [facility] Past Medical History: Diagnosis [...] by mouth twice daily as needed. CALCIUM [id number]-GENIS ORAL Sig: Take 2 tablets by mouth [...] file Gets together: Not on file Attends baptist service: Not on file Active member of club or organization: Not on file Attends meetings of clubs or organizations: Not on file Relationship status: Not on file Other Topics Concern Not on file Social History Narrative Updated 11/09/15 She lives in [place] with her mother and her sister (also her caregiver) [facility]. She has 2 grandchildren (age 4 and 7) who live with her daughter and son-in-law Her boyfriend lives in [place] HFpEF, DM2, HTN, Sleep Apnea (unable to tolerate CPAP), Hypothyroidism, Severe Obesity ([facility]) Last [...] here and refer her to our labor relations specialist who also has expertise in physical [...] acute on chronic sp her travels to [place]. She is scheduled for surgery tomorrow. Admit [...] exacerbation of her pain with ride from [place] is unusual. No acu te changes noted on exam or labs. Will plan to admit and control pain overnight and operat e in am. JONES WOO MD [facility] [address] [place] [address] documented in this encounter Consult Notes Megan [...] Anticoagulation Clinic/Provider: PCP: Dr Davison at [facility], INRs justa han at [facility] Lab Date INR Warfarin Dose 08/23 [...] make recommendations. Please page clinical ph armacist (#[phone]) or call central inpatient pharmacy ([phone]) with questions. Megan Marx, PharmD Candidate 2019 Associated attestation - Nicholas Davison PharmD - 08/23/2019 8:21 AM PSTI have personally reviewed the patients warfarin dosing and monitoring with the pharmacy director. I agree wi th their assessment and plan as outlined in the note. Thank you, Nicholas Davison, PharmD Clinical Pharmacist [facility] [place] Department of Pharmacy, CR 9-[address] [facility] [address] [place], [place] [address] Pager: [phone] Megan Marx - 08/22/2019 10:06 AM PST [...] Anticoagulation Clinic/Provider: PCP: Dr Davison at [facility], INRs complet ed at [facility] Lab Date INR Warfarin Dose 08/22 1.08 [...] make recommendations. Please page clinical ph armacist (#[phone]) or call central inpatient pharmacy ([phone]) with questions. Megan Marx, PharmD Candidate 2019 Associated attestation - Nicholas Davison PharmD - 08/23/2019 8:17 AM PSTI have personally reviewed the patients warfarin dosing and monitoring with the pharmacy director. I agree wi th their assessment and plan as outlined in the note. Thank you, Nicholas Davison PharmD Clinical Pharmacist [facility] [place] Department of Pharmacy, CR 9-[address] [place], [place] [address] Pager: [phone] Nicholas Davison PharmD - 08/20/2019 8:51 AM [...] and make recommendations. Please page clinical pharmacist (#[phone]) or call central inpatient pharmacy ([phone]) with questions Subjective/Objective: Allergies: Benadrilina [diphenhydramine hcl]; [...] note Thanks, Nicholas Davison PharmD Clinical Pharmacist [facility] Department of Pharmacy, CR 9-[address] [place], [place] [address] Pager: [phone] ATANGena Price - 08/18/2019 7:25 PM PST Pharmacy Services: Admission Medication Reconciliation Prior to Admission Medications: Prior to Admission Medications Prescriptions Last Dose Informant Patient Reported? Taking? ALPRAZolam 1 mg oral tablet 08/18/2019 at 05:00 Yes Yes Sig: Take 1 mg by mouth three times daily as needed. CALCIUM [id number]-GENIS ORAL 08/17/2019 at PM Yes Yes Sig: [...] 50 mg by mouth once daily. thyroid (ACCOUNT SOLUTIONS ANALYST THYROID) 30 mg oral tablet tab 08/17/2019 [...] regarding this information please contact pharmacy, pager [phone] Gena Price PharmD docu mented in this [...] Patient Active Problem List [facility]: 1 Acute DVT (deep venous [...] nish limb 150 cm or less 03/01/2018 [facility], Dr Pandey Cholecystectomy, laparoscopic Medications Prior to Admission Medications Prescriptions Last Dose Informant Patient Reported? Taking? ALPRAZolam 1 mg oral tablet Yes No Sig: Take 1 mg by mouth twice daily as needed. CALCIUM CRB&JTY-M2-ULL19-GENIS ORAL Yes No Sig: Take 2 tablets [...] history - former tobacco. Currently [facility]. Social History Tobacco Use Smoking status: [...] [facility] [place] [facility], will consult them prior [...] 1:56 PM PSTPt arrived by ambulance from [place], stating she is scheduled to have hernia surgery with Dr. Woo tomorrow. Reports worsening abd pain today, rates 7/10 and constant, with nausea. Last PO was at 1100 today. Mary Suarez RN - 08/18/2019 1:47 PM PSTBed: HW B Expected date: Expected time: Means of arrival: Comments: [id number] signed by Mary Hess RN at 08/18/2019 [...] shift to promote sleep and rest. (08/22/191952) [facility] IP NURSE HANDOFF: [facility] [...] RN - 08/22/2019 6:18 PM PSTNursing Handoff [facility] IP NURSE HANDOFF: NURSING ASSESSMENT & RECOMMENDATIONS [...] pain managed to allow for sleep. (08/21/191929) [facility] IP NURSE HANDOFF: [facility] [...] bel managed to allow for sleep. (08/20/192015) [facility] IP NURSE HANDOFF: [facility] [...] -Home cpap @ night -Pain controlled with [id number] Q4hr PRN -VSS -Ad jelena -REG diet -Periwound skin of incisions reddened. Continue to monitor. Lidocaine patch placed on abdom en for severe tenderness. Barriers to discharge: Pain management lan of Care - Micah Nieto, PT - 08/20/2019 3:55 PM PST Physical Therapy Evaluation and Discharge 08/20/2019 3:55 PM Hospital Day: 2 [id number] DYLAN ROMERO Date of : 1975 Start of care: 08/18/2019 Referring/Attending Practitioner: Jones Woo MD Primary/Referral Diagnosis/ICD-9: K43.9 Ventral hernia without obstruction or gangrene E66.01 Severe Morbid obesity (HCC), BMI 88 K46.0 Incarcerated hernia Insurance: Payor: [facility] MEDICAID / Plan: [facility] [place] / Product Type: Medicaid / [...] to go home, reduce pain Communication: appropriate, serbian Barriers: recurrent hernias Pain: 8/10 at incision [...] x1 down per patient request. Outcome Measure: [facility] BASIC MOBILITY Difficulty turning over in bed [...] A Little - Minimal/Contact Guard Assist/Superv ision [facility] Basic Mobility Total Score [address] [facility] Short Form - Basic Mobility: CMS Modifier [...] RN - 08/20/2019 4:13 AM PSTNursing Handoff [facility] IP NURSE HANDOFF: [facility] [...] by: [place] pain is well controlled with HEALTH POLICY ANALYST. She is tolerating well. Recommendations Forward: -Home cpap approved for use in hospital -Pain control with hydromorphone HEALTH POLICY ANALYST -Kilgore catheter in place Barriers to discharge: -HEALTH POLICY ANALYST for pain control -MIVF -Kilgore catheter p Note - Mary Theodore MD - 08/19/2019 6:26 PM PSTDate of Service: 08/19/2019 Attending Surgeon: Jones Woo MD Traffic Manager(s): Nicholas Theodore MD Preoperative Diagnosis: Incarcerated incisional [...] the case. MD Jones Rivera MD NK/MODL /[id number] I was present for the hernia repair JONES WOO MD [facility] [address] [place] [address] rief Op Note - Nicholas Daily MD - 08/19/2019 5:18 PM PST Date of procedure: 08/19/2019 Times Event Time In Procedure Start ThuAug 19, 2019 9474 Location: [facility] Surgeon(s) and Role: * Jones Woo MD - Primary Staff: Drafting Clerk: Angelica Ga RN Scrub: ST Dwayne Drafting Clerk Relief: Amy Vega RN Scrub Relief: ST Renetta Equities Trader: Nicholas Theodore MD Pre Op Dx INCARCERATED [...] Additional pain medication information: Functional Epidural: No HEALTH POLICY ANALYST: Yes Respiratory: RR: 18 , O2 Sat: 97 % , O2 Delivery: None (room air) Breath Sounds: Ex (amara with BIPAP) ALFRED: LLL: RUL: RLL: AMARA Yes Comment: no apneic breathing noticed Cardiac: BP: 128/73 HR: 74 GI: Nausea/Vomiting Status: No Signs/Symptoms: Interventions: Assessment: Comments: remains NPO : Last void: Kilgore draining Contact Name: Katalina Padilla Contact Number: [phone] (OK to leave message per patient) Family [...] Provider Specialty/Clinic: Gen surgery clinic Contact Number: [phone] to contact provider: Pager Callback required?: no Reason for callin44 y/o F w/ incarcerated hernia since January, presenting with acutely worsening pain, concern for ischemic hernia. Arriving by ambulance. Gadiel Hendricks PA-C Department of emergency medicine [phone] signed by Gadiel Hendricks PA-C at 08/18/2019 1:33 PM PSTComm Teresa Jaramillo - 08/18/2019 1:28 PM [id number] Just talked to Dr Woo, he req [...] | | 2019 | cheduled | | DIALYSIS EQUIPMENT TECHNICIAN [address] | | | | | | [place], [place] | | | | | | [address] | | | | | | [phone] | | | | | | | [...] | [facility] | [address] [facility] [facility] [facility] | [place] [address] | | | SERVICES, LYDIA | LESLY [...] [facility] | [address] | [place] [address] | | | SERVICES, CORE | PARK [...] [facility] | [address] | [place] [address] | | | SERVICES, CORE | LESLY [...] [facility] | [address] | [place], [place] | | | JUSTINE DAWN OF JAKY | [facility] | [address] | | | TESTS | | | [...] - [place] | [address] | [place], [place] | | | JUSTINE DAWN OF CARE | [address] | [address] | | | TESTS | | | [...] [facility] | [address] | [place] [address] | | | SERVICES, | [address] [...] [facility] | [address] | [place] [address] | | | SERVICES, | [address] [...] - [place] | [address] | [place], [place] | | | [place] POINT OF CARE | [address] | [address] | | | TESTS | | | [...] | [facility] | | | GRAVITY | [place] performed by | | LABORATORY | | [...] [facility] | [address] | [place] [address] | | | SERVICES, LYDIA | LESLY [...] [facility] | [address] | [place] [address] | | | SERVICES, | [address] [...] [facility] | [address] | [place] [address] | | | SERVICES, CORE [...] [facility] | [address] | [place] [address] | | | SERVICES, CORE | PARK [...] [facility] | [address] | [place] [address] | | | SERVICES, CORE | PARK [...] + + + | [facility] | [address] | [place] [address] | | | SERVICES, CORE | LESLY [...] + | [facility] | [address] [facility] [facility] [facility] | [place] [address] | | | SERVICES, CORE | [address] | | | + + + + + ED INFORMATION EXCHANGE (08/18/2019 1:47 PM PST) + + | Specimen | + + | | + + + + + | Narrative | Performed At | + + + | COLLECTIVE?NOTIFICATION?08/18/2019 13:47?DYLAN ROMERO?MRN: | COLLECTIVE | | [id number] Criteria Met 5 Visits In 12 Months Has | MEDICAL | | Guidelines PDMP Security and Safety No recent Security Events | [employer]OLOG[employer] | | currently on file ED Care Guidelines from [facility] [place] | | | Last Updated: 12/06/18 9:53 AM Care Coordination: Receiving | | | mental health services with [employer].? Please contact [employer] for | | | mental health concerns.? Sarah/Toni Centeno: [phone]? | | | Kishan: [phone].? These are guidelines and the provider | | | should exercise clinical judgment when providing care. Care | | | History Medical/Surgical 05/24/19 12:00 AM [facility] | | | Hospital PATIENT HAS AN APT ON 06/16/[address] CARDENAS. | | | 05/11/19 12:[address] [facility] Patient is | | | currently established with [facility]. If patient is seen in | | | the ED during business hours. Please contact CHWs at [facility] | | | Clinic. Care [...] | [facility] PATIENT HAS A PCP APT TO ESTABLISH | | | CARE ON 10/04/18 @ 10:00AM WITH DR CARDENAS. Flags | | | [place] Disparity [place] - [place] ([place] | | | Dis[place]ity [place]) to help support Medicaid members with mental | | | illness. [facility] uses claims data with a [...] | are updated weekly. / Attributed By: [facility] ([facility]) / | | | Attributed [...] 12 MCG/HR | | | PATCH 5 BEZTY BALDWIN PA-C 2 0 2019-04-18 ALPRAZOLAM 1 [...] (12 | | | mo.) Facility Visits [facility] 1 [facility] and | | | [facility] 2 [facility] 7 Total 10 Note: | | | Visits indicate total known visits. Recent Emergency Department | | | Visit Summary Date Facility City State Type Diagnoses or Chief | | | Complaint Aug 18, 2019 [facility] [place] | | | [place] Emergency 10,800. amr Jun 25, 2019 [facility]. | | | [place] Emergency halfway (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 | | | Anxiety disorder, unspecified Cellulitis of abdominal wall | | | Acute embolism and thrombosis of deep veins of r up extrem | | | Nicotine dependence, unspecified, uncomplicated Migraine, unsp, | | | not intractable, without status migrainosus Unspecified | | | abdominal pain Allergy status to oth drug/meds/biol subst status | | | Other terminologist (current) drug therapy Allergy status to | | | penicillin [facility] [place] Emergency | | | halfway (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 Prsnl hx of [...] unspecified Jun 01, 2019 | | | [facility]. [place] Emergency Headache Allergy | | | status to penicillin Anxiety disorder, unspecified | | | Obesity, unspecified Migraine, unsp, not intractable, without | | | status migrainosus Other usp (current) drug therapy | | | Allergy status to oth drug/meds/biol subst status halfway | | | (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 ocean transportation intermediary (current) use of | | | aspirin May 23, 2019 [facility] [place] Emergency | | | Anxiety disorder, unspecified Acute embolism and thrombosis of | | | deep veins of r up extrem Allergy status to penicillin | | | Other usp (current) drug therapy Pain in right arm | | | halfway (current) use of aspirin Allergy status to oth | | | drug/meds/biol subst status May 20, 2019 [facility] | | | [place] Emergency Generalized abdominal pain Allergy | | | status to oth drug/meds/biol subst status Unspecified abdominal | | | pain Anxiety disorder, unspecified Other chronic pain | | | Allergy status to penicillin halfway (current) use of | | | aspirin Prsnl hx of TIA (TIA), and cereb infrc w/o resid | | | deficits Other usp (current) drug therapy May 13, | | | 2019 [facility] [...] infrc w/o resid deficits Other usp (current) | | | drug therapy Allergy status to penicillin December 03, 2018 [facility] | | | [facility]. [place] Emergency RIGHT LEG PAIN DUE TO FALL | | | Strain of unsp musc/tend at lower leg level, right leg, init | | | Aug 22, 2018 [facility] [place] Emergency Other | | | usp (current) drug therapy Upper abdominal pain, | | | unspecified Bariatric surgery status Allergy status to oth | | | drug/meds/biol subst status Noninfective gastroenteritis and | | | colitis, unspecified Obesity, unspecified Anxiety | | | disorder, unspecified ocean transportation intermediary (current) use of aspirin | | | Allergy status to penicillin Personal history of pulmonary | | | embolism Recent Inpatient Visit Summary No recorded | | | inpatient visits. Care Team Provider Specialty Phone Fax Service | | | Dates Mica Eagle, GABBIE Community Health Worker | | | Jul 03, 2019 - Current JONES DAVISON D.M.D. Dentist: | | | Issuer May 23, 2019 - | | | Current Rob Tilley [employer] Inspector/Technology Analyst ([id number]) | | | [phone] Mar 27, 2018 - Current Bernard Cardenas MD Internal | | | Medicine: Pulmonary Disease Aug 23, 2018 - Current | | | [facility] This patient has registered at the [facility] | | | [facility] Emergency Department For more information | | | visit: | | | [email or web address] | | | [email or web address] PLEASE NOTE: 1. Any care recommendations [...] or completeness of information provided. ? 2020 [employer] | | | mobile mum. - [email or web address] | | + + + + + [...] on fileED Care Guidelines | | from [facility] Updated: 12/06/18 9:53 AM Care Coordination:Receiving | | mental health services with [facility].? Please contact [facility] for mental health | | concerns.? Sarah/Toni Centeno: [phone]? Kishan: [phone].?These are | | guidelines and the provider should exercise clinical judgment when providing care.Care | | HistoryMedical/Rvgcedxv74/29/19 12:[address] [facility] PATIENT HAS AN APT | | ON 06/16/[address] CARDENAS.05/11/19 12:[address] [facility] Patient is | | currently established with [facility]. If patient is seen in the ED during | | business hours. Please contact CHWs at [facility].Care Recommendation:This | | patient has had [...] AM [facility] PATIENT HAS A PCP APT TO ESTABLISH CARE | | ON 10/04/18 @ 10:00AM WITH DR CARDENAS. Flags [place] Dispar[place] - [place] has | | developed a flag ([place] Dispar[place]) to help support Medicaid members with | | mental illness. [facility] uses claims data with a [...] | | updated weekly. / Attributed By: [facility] ([place]) / Attributed On: [...] 0 E.D. Visit Count (12 mo.)Facility Visits [facility] 1 [facility] | | [facility] 2 [facility] 7 Total 10 Note: Visits indicate | | total known visits. Recent Emergency Department Visit SummaryDate Facility City State | | Type Diagnoses or Chief Complaint Aug 18, 2019 [facility] | | [place] Emergency 10,800. amr Jun 25, 2019 [facility] [place] Emergency | | ocean transportation intermediary (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 Anxiety disorder, unspecified | | Cellulitis of abdominal wall Acute embolism and thrombosis of deep veins of r up | | extrem Nicotine dependence, unspecified, uncomplicated Migraine, unsp, not | | intractable, without status migrainosus Unspecified abdominal pain Allergy status | | to oth drug/meds/biol subst status Other terminologist (current) drug therapy Allergy | | status to penicillin Jun 19, 2019 [facility] [place] Emergency ocean transportation intermediary | | (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 Prsnl [...] Allergy status to oth drug/meds/biol subst status ocean transportation intermediary (current) use of | | anticoagulants halfway (current) use of aspirin May 23, 2019 [facility] | | [place] Emergency Anxiety disorder, unspecified Acute embolism and thrombosis of | | deep veins of r up extrem Allergy status to penicillin Other usp (current) | | drug therapy Pain in right arm ocean transportation intermediary (current) use of aspirin Allergy | | status to oth drug/meds/biol subst status May 20, 2019 [facility] [place] | | Emergency Generalized abdominal pain Allergy status to oth drug/meds/biol subst | | status Unspecified abdominal pain Anxiety disorder, unspecified Other chronic | | pain Allergy status to penicillin ocean transportation intermediary (current) use of aspirin Prsnl hx | | of TIA (TIA), and cereb infrc w/o resid deficits Other usp (current) drug | | therapy May 13, 2019 [facility] [place] Emergency | | 10,800. A303 18,400. Bariatric surgery status 18,400. Ventral hernia without | | obstruction or gangrene 18,400. Nausea with vomiting, unspecified 18,400. | | Unspecified abdominal pain 18,400. Nonspecific mesenteric lymphadenitis May 10, 2019 | | [facility] [place] Emergency Nausea with vomiting, unspecified Solitary | | pulmonary nodule Anxiety disorder, unspecified Ventral hernia without obstruction | | or gangrene Unspecified abdominal pain Diarrhea, unspecified Allergy status to | | oth drug/meds/biol subst status Prsnl hx of TIA (TIA), and cereb infrc w/o resid | | deficits Other usp (current) drug therapy Allergy status to penicillin November | | 2018 [facility]. [place] Emergency RIGHT LEG PAIN DUE TO FALL | | Strain of unsp musc/tend at lower leg level, right leg, init Aug 22, [address] [facility] | | [facility] [place] Emergency Other terminologist (current) drug therapy Upper | | abdominal pain, unspecified Bariatric surgery status Allergy status to oth | | drug/meds/biol subst status Noninfective gastroenteritis and colitis, unspecified | | Obesity, unspecified Anxiety disorder, unspecified halfway (current) use of | | aspirin Allergy status to penicillin Personal history of pulmonary embolism | | Recent Inpatient Visit SummaryNo recorded inpatient visits. Care TeamProvider Specialty | | Phone Fax Service Dates Eagle Nino CHW Community Health Worker | | Jul 03, 2019 - Current JONES DAVISON D.M.D. Dentist: Issuer [phone] | [phone] May 23, 2019 - Current Rob Tilley [employer] Instruments Inspector/Care | | Coordinator Mar 27, 2018 - Current Bernard Cardenas MD Internal Medicine: | | Pulmonary Disease Aug 23, 2018 - Current SecretThis patient has registered | | at the [facility] [place] [facility] For more information | | visit: [email or web address] | | PLEASE NOTE: 1. Any care [...] completeness of information | | provided.? 2019 [employer] | | Allergy status to oth drug/meds/biol subst status | | Other usp (current) drug therapy | | Allergy status to penicillin | | | |Jun 19, 2019 [facility] [place] Emergency | | ocean transportation intermediary (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 | | Prsnl [...] | | | |Jun 01, 2019 [facility] [place] Emergency | | Headache | | Allergy status to penicillin | | Anxiety disorder, unspecified | | Obesity, unspecified | | Migraine, unsp, not intractable, without status migrainosus | | Other usp (current) drug therapy | | Allergy status to oth drug/meds/biol subst status | | halfway (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 | | halfway (current) use of aspirin | | | |May 23, 2019 [facility] [place] Emergency | | Anxiety disorder, unspecified | | Acute embolism and thrombosis of deep veins of r up extrem | | Allergy status to penicillin | | Other terminologist (current) drug therapy | | Pain in right arm | | ocean transportation intermediary (current) use of aspirin | | Allergy status to oth drug/meds/biol subst status | | | |May 20, 2019 [facility] [place] Emergency | | Generalized abdominal pain | | Allergy status to oth drug/meds/biol subst status | | Unspecified abdominal pain | | Anxiety disorder, unspecified | | Other chronic pain | | Allergy status to penicillin | | halfway (current) use of aspirin | | Prsnl hx of TIA (TIA), and cereb infrc w/o resid deficits | | Other terminologist (current) drug therapy | | | |May 13, 2019 [facility] [place] Emergency | | 10,800. A303 | | 18,400. Bariatric surgery status | | 18,400. Ventral hernia without obstruction or gangrene | | 18,400. Nausea with vomiting, unspecified | | 18,400. Unspecified abdominal pain | | 18,400. Nonspecific mesenteric lymphadenitis | | | |May 10, 2019 [facility] [place] Emergency | | Nausea [...] | | | |Aug 22, 2018 [facility] [place] | | Other usp (current) drug therapy | | Upper abdominal pain, unspecified | | Bariatric surgery status | | Allergy status to oth drug/meds/biol subst status | | Noninfective gastroenteritis and colitis, unspecified | | Obesity, unspecified | | Anxiety disorder, unspecified | | halfway (current) use of aspirin | | Allergy status to penicillin | | Personal history of pulmonary embolism | | | | | | | |Recent Inpatient Visit Summary | |No recorded inpatient visits. | | | |Care Team | |Provider Specialty Phone Fax Service Dates | |Eagle Nino CHW Community Health Worker Jul 03, 2019 - Current | |JONES DAVISON D.M.D. Dentist: Issuer May 23, 2 019 - Current | |Treva Rob [employer] Instruments Inspector/Technology Analyst Mar 27, 2018 - Current | |Bernard Cardenas MD Internal Medicine: Pulmonary Disease Aug 23, 2018 - Current | | | |[facility] | |This patient has registered at the [facility] [place] [facility] t | |For more information visit: [email or web address] | |PLEASE NOTE: | | 1. Any [...] information provided. | | | |? 2020 [employer]. - [email or web address] | + + + + + + + | Performing | Address | City/State/Zipcode | Phone Number | | Organization | | | | + + + + + | [employer] | [address] | [place], [place] | [phone] | | TE[employer] | [address] | [address] | | + + + + + [...]
--- OUTSIDE RECORDS SUMMARY | ~2020-03-23 | XMS | Encounter Summary ---
Demographics + + + | Address | [address] | | | [place] [address] | + + + | Home Phone [...] Team Providers + +------+ + | Care Tubing Tester Name | Role | Phone | [...] + + | 01/11/ | Telephone | [facility] | Camille De La Paz, | Referral | | 2020 | | NEUROLOGY [address] | MD [address] | | | | | [address] | [address] [facility] [address] | | | | | [place], [place] | [place] [address] | | | | | [address] | [phone] | | | | | [phone] | | | +--------+ + + + [...] transfer the call to a romeo ellis french folding machine operator was caller made aware that if [...] | | | | | [place] [address] | | | | | | [phone] | | | | | | | | +--------+ + + + + | 04/18/ | Procedure | Neurology | Camille De La Paz, | | | 2019 | visit | | MD Saumya MOE | | | | | | REILLY Swain | | | | | | [place] [id number] | | | | | | [phone] | | | | | | | | +--------+ + + + + documented as of this encounter Visit Diagnoses Not on filedocumented in this encounter"
--- OUTSIDE RECORDS SUMMARY | ~2020-03-23 | XMS | Encounter Summary ---
Demographics + + + | Address | [address] | | | [place] [address] | + + + | Home Phone [...] [place], [place] | | | | | [address] | | + + + + + | Ellie Vang | ECON | Unknown | | + + + + + Care Team Providers + +------+ + | Care Retort Fireman Name | Role | Phone | + [...] | | 2020 | | Center at [facility] [address] | MD [address] | | | | | [facility] | [facility] | | | | | [facility] and | [place], [place] | | | | | [place] [address] | [address] | | | | | [place], [place] | [phone] | | | | | [address] | | | | | | [phone] | | | +--------+ + + + [...] Pt will need to [facility] up [facility] ED should her pain become unmanageable. [...] for any medication to be sent to [facility] in [place], if presc ribed. Recommendations: Will follow up [...] her Please return call documented in this [facility] Plan of Treatment +--------+ + + + + | Date | Type | Specialty | Care Team | Description | +--------+ + + + + | 04/04/ | Telephone-S | Surgery | Orquidea Cristobal, | | | 2019 | sherrill | | DENTAL PROSTHETIST [address] | | | | | | [place], [place] | | | | | | [address] | | | | | | [phone] | | | | | | | | +--------+ + + + + documented as of this encounter Visit Diagnoses Not on filedocumented in this encounter"
--- OUTSIDE RECORDS SUMMARY | ~2020-03-23 | XMS | Encounter Summary ---
Demographics + + + | Address | [address] | | | [place] [address] | + + + | Home Phone [...] [place], [place] | | | | | [address] | | + + + + + | Ellie Vang | ECON | Unknown | | + + + + + Care Team Providers + +------+ + | Care Building Components Designer Name | Role | Phone | [...] Records | | 2020 | | Center [place] [address] | MD [address] | Review | | | | [facility] | [facility] | | | | | [facility] and | [place], [place] | | | | | [place] [address] | [address] | | | | | [place], [place] | [phone] | | | | | [address] | | | | | | [phone] | | | +--------+ + + + [...] | | 2019 | sherrill | | SHAGGER [address] | | | | | | [place], [place] | | | | | | [address] | | | | | | [phone] | | | | | | | | +--------+ + + + + documented as of this encounter Visit Diagnoses Not on filedocumented in this encounter"
--- OUTSIDE RECORDS SUMMARY | ~2020-03-23 | XMS | Encounter Summary ---
Demographics + + + | Address | [address] | | | [place] [address] | + + + | Home Phone [...] [place], [place] | | | | | [address] | | + + + + + | Ellie Vang | ECON | Unknown | | + + + + + Care Team Providers + +------+ + | Care Hob Grinder Name | Role | Phone | [...] [id number] | | | | | | [facility] | | | | | | [place], [place] | | | | | | [address] | | | | | | [phone] | | | +--------+ + + + [...] | | 2019 | sherrill | | ELECTRONIC ASSEMBLER GROUP LEADER [address] | | | | | | [place], [place] | | | | | | [address] | | | | | | [phone] | | | | | | | | +--------+ + + + + documented as of this encounter Visit Diagnoses Not on filedocumented in this encounter"
--- OUTSIDE RECORDS SUMMARY | ~2020-03-23 | XMS | Encounter Summary ---
Demographics + + + | Address | [address] | | | [place] [address] | + + + | Home Phone [...] [place], [place] | | | | | [address] | | + + + + + | Ellie Vang | ECON | Unknown | | + + + + + Care Team Providers + +------+ + | Care Senior Vice President Name | Role | Phone [...] 2014 | | [address] | [address] | REPAIR | | | | [facility] | [address] | | | | | Hospital Admitting | [place], [place] | | | | | Des Located on the | [address] | | | | | 9th floor | [phone] | | | | | [place], [place] | | | | | | [address] | | | +--------+---------+ + + + [...] site who was transferre d to [facility] for concern of an incarcerated hernia. [...] mouth once daily. , Historical Med CALCIUM [id number]-H7-[id number]-GENIS ORAL Take 1 tablet by mouth two [...] 10:40 AM Randell Franks Cardiology Preventive at [facility] [phone] Cardiology 04/09/2015 1:00 PM Egs Ppv Tra Trauma Emergency General Surgery at [facility] [phone] TRAUMA CENT Outstanding labs/studies: None Discharging Physician: GABO LANGSTON MD Attending Physician: Dr. Cantu PCP: Fadi Goodrich DO Signed: GABO LANGSTON MD Pager #[phone] Surgical Sewer And Cutter Finger Buff Material [facility] Associated attestation - Tye Carrillo DO - 03/12/2015 9:12 AM PDTAttending: I discussed this patient with the resident and agree with the assessment and plan as outlin ed in this note and participated in the planning of care. Tye Carrillo DO, SIDRA, FACS Division of Trauma, Critical Care & Acute Care Surgery [facility] [phone] documented in this encounter Medications at Time of Discharge + + + +---------+--------+ + | Medication | Sig | Dispensed | Refills | Start | End Date | | | | | | Date | | + + + +---------+--------+ + | CALCIUM | Take 2 tablets by | | 0 | | | | [id number]-[id number]-GEN | mouth two times | | | [...] differ ent from the original. [facility] DEPARTMENT OF SURGERY EMERGENCY GENERAL SURGERY Division [...] with known ventral hernias transferred to [facility] for surgical managem ent of ventral hernia, now s/p repair. Post surgical pain: -patient ready for d/c, discussed f/u. Patient lives far away and has other appointments at [facility]. Will attempt to coordinate appointments. Discharge Plan: D/c today GABO LANGSTON MD Pager #[phone] Surgical Sewer And Cutter Finger Buff Material [facility] pSalomón campa Md R - 03/02/2015 1:[address] [facility] DEPARTMENT OF SURGERY EMERGENCY GENERAL SURGERY Division of Trauma and Critical Care Attending Physician: Shahid Cantu MD Progress Note Note Date: 03/02/2015 Admission Date: 2015 DYLAN ROMERO, Hospital Day #2 40 F PMH morbid obesity (BMI 71 today), DM2, depression, GERD, h/o stroke at age 18, and kn own ventral hernias transferred to [facility] for surgical treatment of suspected incarcerated [...] with known ventral hernias transferred to [facility] for surgical managem ent of ventral [...] will be robel ing her home to [place], [place]. CALVIN ROMERO MD PGY-1 Anesthesiology Pager: [phone] [facility] A [address] [facility] [address] Marleny Oneill MD - 03/02/2015 8:26 AM [id number] Calvin William Md - 03/01/2015 5:34 PM PDT Brief Post Operative Note: 40 F PMH morbid obesity (BMI 71 today), DM2, depression, GERD, h/o stroke at age 18, and kn own ventral hernias transferred to [facility] for surgical treatment of incarcerated ventral [...] control CALVIN ROMERO MD PGY-1 Anesthesiology Pager: [phone] signed by Calvin Romero Md at 03/01/2015 5:41 PM PDTdocumente d in this encounter H&P Notes Jostin Brunner MD - 2015 8:12 PM PDTFormatting of this note might be differen t from the original. Emergency General Surgery - Admission Note Patient: Dylan Romero ([id number]) Author: Jostin Brunner MD Attending: Dagoberto Colón MD Date: 2015 Reason for Admission: Abdominal pain HPI: Dylan Romero is a 40 y.o. female with morbid obesity (BMI 71 today), DM2, depressi on, GERD, h/o stroke at age 18, and known ventral hernias who is transferred to [facility] from [facility] in [place], [place] with 3 days of abdominal pain, [...] All surgeries have been performed at [facility]. She has known hernia recurrence in her ventral midline and umbilicus. She is parti cipating in the [facility] Bariatrics program and has lost 100 [...] Socal History: Lives with her mother in [place], [place] Former smoker Denies alcohol, current smoking, and illicits Prior to Admission Medications Prescriptions ALPRAZolam 1 mg oral tablet Sig: Take 1 mg by mouth three times daily as needed for anxiety. CALCIUM CRB&AOR-G8-[id number]-GENIS ORAL Sig: Take 1 tablet by mouth [...] NPO Jostin Brunner MD R3 EGS Pager: [phone] documented in this e ncounter Procedure Notes Shahid Cantu MD - 03/02/2015 9:15 AM PDTAssociated Order(s): OPERATION RECORDDate of S ervice: 03/01/2015 Attending Surgeon: Shahid Cantu MD Child Neurologist(s): Howie Angeles MD, R5 Marleny Galvan MD, [...] diabetes and morbid obesity with a B NM of 71, and known ventral hernia from [...] the entire procedur e. Shahid Cantu MD [employer] Tanker Driver Trauma, Critical Care & Acute Care Surgery Shahid Cantu MD TBK/MODL /[id number] signed by Shahid Cantu MD at 03/05/2015 [...] Initial surgical contact: Juma Galvan at pager [phone] Associated attestation - Shahid Cantu MD - 03/02/2015 8:24 AM PDTA full operative note will be dictated by Dr. Marleny Galvan, the resident surgeon. Pursuant to federal Medicare and Medicaid regulations I was present for the entire procedur e including the critical portions. Shahid Cantu MD [employer] Tanker Driver Trauma, Critical Care & Acute Care Surgery documented in this encounter Miscellaneous Notes Handoff - Jj Arizmendi RN - 03/03/2015 10:35 AM PDTNursing Handoff Patient Daily Goal: Pain will be under control (03/03/1514) [facility] IP NURSE HANDOFF: Jiang hospital course [...] Pain will be under control (03/03/1514) [facility] IP NURSE HANDOFF: COMFORT/ANXIETY/BEHAVIOR Patient Target: Patient pain level will be under control As evidenced by: Dylan wanted her 10mg of oxycodone every three hours overnight to keep her pain controlle d. She had asked to be woken up during the night when the medication was due to be given. [place] N ibuprogen and tylenol was also offered in conjunction with oxycodone. NURSING ASSESSMENT & RECOMMENDATIONS FORWARD Nursing Assessment of Patient Stability Risk: Moderately stable Recommendations Forward: Continue to offer 10mg oxycodone Q 3 hrs alternating with tylenol and ibuprofen. Offer non-pharmacologic pain relief interventions in addition to pharmacologi c. andoff - Branden Hoyt RN - 03/02/2015 3:[address] [facility] IP NURSE HANDOFF: Jiang hospital course [...] notes for their discharge recommendations. Please page counseling case manager if any CM arranged service needs arise. Patient states [facility] [place] [id number] Mariah Chen RN - 03/02/2015 3:[address] [facility] IP NURSE HANDOFF: Jiang hospital course [...] Additional pain medication information: Functional Epidural: No ACCOUNTS PAYABLE MANAGER: No Respiratory: RR: 20, O2 Sat: 96 %, O2 Delivery: Nasal cannula Breath Sounds: WDL Except ALFRED: clear;diminished LLL: clear;diminished RUL: clear;diminished RLL: clear;diminished AMARA No Comment: risk for AMARA due to obesity Cardiac: BP: 116/61 mmHg HR: 79 GI: Nausea/Vomiting Status: No Signs/Symptoms: Interventions: Assessment: Comments: no ponv : Last void: Ruiz Contact Name: Mom: Katalina Padilla Contact Number: [phone] Family contacted: Yes Comment: Will contact prior [...] of 4-5 in the abdomen r egion. [facility] Galina Burton - 2015 6:15 PM PDTKishan Jones 1475, 40 yof, needs hernia operation , almost 400 lbs, 10/10 pain, baseline is 8/10 pain, given morphine 4 hours ago before [facility], vitals BP 120 systolic, hr 80-100, [...] Gann. Transport TBD, pt on [facility] at [facility]. documented in this encounte r Plan of Treatment +--------+ + + + + | Date | Type | Specialty | Care Team | Description | +--------+ + + + + | 04/04/ | Telephone-S | Surgery | Orquidea Cristobal, | | | 2020 | cheduled | | EMT DISPATCHER [address] | | | | | | [place], [place] | | | | | | [address] | | | | | | [phone] | | | | | | | [...] | Transcriptions | + ---+ | Shahid Catnu MD - 03/02/2015 9:15 AM PDT Date of Service: 03/01/2015 | | Attending Surgeon: Shahid Cantu MD Child Neurologist(s): Howie Angeles MD, R5 | | Marleny [...] 03/02/2015 08:25:39DT: 03/02/2015 09:15:57Job #: | | [id number] | | | |Dr. Chris Cantu was present and scrubbed for the entirety of the case. | | | | | | | |Marleny Galvan MD | | | |Pursuant to federal Medicare and Medicaid regulations I was present for the entire procedur e. | | | | | | | |Shahid Cantu MD | |[employer] Hazmat Tanker Driver | |Trauma, Critical Care & Acute Care Surgery | | | | | | | |Shahid Cantu MD | |TBK/CARLOSL | | | | | | /[id number] | + ---+ CAPILLARY BLOOD GLUCOSE (NO [...] - [facility]QU[facility] | [address] | [place], [place] | | | JUST[facility]WN OF CARE | [facility] | [address] | | | TESTS | | | [...] | 60 - 99 mg/dL | [facility] - | | | GLUCOSE, | [...] [place] | [address] | [place], [place] | | | JUSTINE DAWN OF JAKY | [address] | [address] | | | TESTS | | | [...] AMES | [address] | [place], [place] | | | [facility] OF JAKY | [facility] | [address] | | | TESTS | | | [...] [facility] | [address] | [place], [place] | | | [facility] OF CARE | [facility] | [address] | | | TESTS | | | [...] | 60 - 99 mg/dL | [facility] - | | | GLUCOSE, | [...] [place] | [address] | [place], [place] | | | JUSTINE DAWN OF [facility] | [address] | [address] | | | TESTS | | | [...] AMES | [address] | [place], [place] | | | JUSTINE DAWN OF JAKY | [facility] | [address] | | | TESTS | | | [...] + + | [facility] | [address] | [place] [address] | | | SERVICES, CORE | CLARENCE [...] | | | LABORATORY | | | CAYMAN ISLANDER | | | SERVICES, | | [...] MDRD equation recommended by the | [facility] | | National Kidney Disease Education [...] + + + + + | [facility] | [address] | [place] [address] | | | SERVICES, CORE | CLARENCE [...] | 60 - 99 mg/dL | [facility] - | | | GLUCOSE, | [...] AMES | [address] | [place], [place] | | | [place] POINT OF CARE | [address] | [address] | | | TESTS | | | [...] [place] | [address] | [place], [place] | | | JUST[facility]WN OF CARE | [address] | [address] | | | TESTS | | | [...] - [place] | [address] | [place], [place] | | | JUSTINE DAWN OF CARE | [address] | [address] | | | TESTS | | | [...] | 60 - 99 mg/dL | [facility] - | | | GLUCOSE, | [...] AMES | [address] | [place], [place] | | | JUSTINE DAWN OF CARE | [address] | [address] | | | TESTS | | | [...] MARQUAM | [address] | [place], [place] | | | JUSTINE DAWN OF CARE | [address] | [address] | | | TESTS | | | [...] + | [facility] | [address] | [place] [address] | | | SERVICES, CORE | CLARENCE [...] MARQU[place] | [address] | [place], [place] | | | JUSTINE DAWN OF JAKY | [address] | [address] | | | TESTS | | | [...]
--- OUTSIDE RECORDS SUMMARY | ~2020-03-23 | XMS | Encounter Summary ---
Demographics + + + | Address | [address] | | | [place] [address] | + + + | Home Phone [...] [place], [place] | | | | | [address] | | + + + + + | Ellie Vang | ECON | Unknown | | + + + + + Care Team Providers + +------+ + | Care Restorer Lace And Textiles Name | Role | Phone | + [...] at [facility] [address] | [facility] [address] | | | | | [address] [place] | [place], [place] | | | | | for Health and | [address] | | | | | [facility] | [phone] | | | | | [place], [place] | | | | | | [address] | | | | | | [phone] | | | +--------+ + + + [...] Whitmore - 03/11/2018 11:54 AM PDTPt saw ENROLLMENT SERVICES VICE PRESIDENT Vince yes terday, she was told to [...] | | 2020 | sherrill | | GOVERNMENT PROPERTY INSPECTOR [address] | | | | | | [place], [place] | | | | | | [address] | | | | | | [phone] | | | | | | | | +--------+ + + + + documented as of this encounter Visit Diagnoses Not on filedocumented in this encounter
--- OUTSIDE RECORDS SUMMARY | ~2020-03-23 | XMS | Encounter Summary ---
Demographics + + + | Address | [address] | | | [place] [address] | + + + | Home Phone [...] | Organization | [facility] [...] + +------+ + | Care Printed Circuit Board Layout Designer Name | Role | Phone | + +------+ + PCP | Unavailable | + +------+ + Encounter Details +--------+ + + + + | Date | Type | Department | Care Team | Description | +--------+ + + + + | 11/20/ | Orders Only | [facility] | Conversion | | | 2016 | | NEPHROLOGY [place] | Transaction, | | | | | [address] | Provider Unknown | | | | | [address] [place], [place] | | | | | | [address] | (Fax) | | | | | [phone] | | | +--------+ + + + [...] | | | | | [place] [address] | | | | | | [phone] | | | | | | | | +--------+ + + + + | 04/18/ | Procedure | Neurology | Camille De La Paz, | | | 2019 | visit | | MD Saumya MOE | | | | | | REILLY Swain | | | | | | [place] [address] | | | | | | [phone] | | | | | | | [...]
--- OUTSIDE RECORDS SUMMARY | ~2020-03-23 | XMS | Encounter Summary ---
Demographics + + + | Address | [address] | | | [place] [address] | + + + | Home Phone [...] [place], [place] | | | | | [address] | | + + + + + | Ellie Vang | ECON | Unknown | | + + + + + Care Team Providers + +------+ + | Care Ethanol Operator Name | Role | Phone | [...] | | | | | | [facility] | | | | | | [facility] Admitting | | | | | | Desk Located on the | | | | | | 9th floor | | | | | | [place], [place] | | | | | | [address] | | | +--------+ + + + [...] - | (Automatic cleanup per RA | Lunane Bonilla RN | Discontinued After | | [...] be different from the original. Elzbieta Cristina [id number] Allergies Allergen Reactions Amoxicillin Benadrilina (Diphenhydramine Hcl) [...] - 11/06/2012 10:18 AM PDT Elzbieta Cristina [id number] Allergies Allergen Reactions Amoxicillin Benadrilina (Diphenhydramine Hcl) [...] | | 2019 | cheduled | | EMISSIONS TESTING TECHNICIAN [address] | | | | | | [place], [place] | | | | | | [address] | | | | | | [phone] | | | | | | | [...]
--- OUTSIDE RECORDS SUMMARY | ~2020-03-23 | XMS | Encounter Summary ---
Demographics + + + | Address | [address] | | | [place] [address] | + + + | Home Phone [...] [place], [place] | | | | | [address] | | + + + + + | Ellie Vang | ECON | Unknown | | + + + + + Care Team Providers + +------+ + | Care Business Analyst Intern Name | Role | Phone | + +------+ + | Jorje Hill MD | PCP | | + +------+ + Encounter Details +--------+ + + + + | Date | Type | Department | Care Team | Description | +--------+ + + + + | 05/03/ | Inside | [facility] at [facility] | Ion Pandey, | | | 2018 | Referral | [address] | MD [address] | | | | Order | [address] [place] for | [place], [place] | | | | | Health and Healing, | [address] | | | | | Building 2 | | | | | | [facility] [place] | | | | | | [address] | | | | | | [phone] | | | +--------+ + + + [...] | | 2020 | cheduled | | MATHEMATICS INSTRUCTOR [address] | | | | | | [place], [place] | | | | | | [address] | | | | | | [phone] | | | | | | | [...]
--- OUTSIDE RECORDS SUMMARY | ~2020-03-23 | XMS | Encounter Summary ---
Demographics + + + | Address | [address] | | | [place] [address] | + + + | Home Phone [...] [place], [place] | | | | | [address] | | + + + + + | Ellie Vang | ECON | Unknown | | + + + + + Care Team Providers + +------+ + | Care Application Processor Name | Role | Phone | [...] | | 2015 | | Center at [facility] [address] | ACNP [address] | | | | | [address] [facility] | e [place], [place] | | | | | [facility] and | [address] | | | | | [facility] 2 | [phone] | | | | | [place], [place] | | | | | | [address] | | | | | | [phone] | | | +--------+ + + + [...] the patient d oes not understand the bag adjuster instructions and that she is taking in [...] weight loss requirement. I also reviewed the bag adjuster's most recent visit note and told Parul that there was noth ing documented about calorie restriction, that the bag adjuster recommended following the Liver Reduction Diet and [...] covered by her insurance. Parul works for [employer] so I asked if she could make [...] an individual session for Elzbieta with the bag adjuster. I sent a separate [employer] message to our outpatient scheduler, RD and SUBSTATION INSPECTOR re: setting up an individual bag adjuster appt. document ed in this encounter Plan of Treatment +--------+ + + + + | Date | Type | Specialty | Care Team | Description | +--------+ + + + + | 04/04/ | Telephone-S | Surgery | Orquidea Cristobal, | | | 2020 | sherrill | | SUPERVISOR PARTIAL DENTURE DEPARTMENT [address] | | | | | | [place] | | | | | | [address] | | | | | | [phone] | | | | | | | | +--------+ + + + + documented as of this encounter Visit Diagnoses Not on filedocumented in this encounter"
--- OUTSIDE RECORDS SUMMARY | ~2020-03-23 | XMS | Encounter Summary ---
Demographics + + + | Address | [address] | | | [place] [address] | + + + | Home Phone [...] [place], [place] | | | | | [address] | | + + + + + | Ellie Vang | ECON | Unknown | | + + + + + Care Team Providers + +------+ + | Care Construction Producer Name | Role | Phone | [...] | | | | | (HCC) | [place], [place] | Hospital, | | | | | Procedures | [address] | 10th Floor | | | | | CT ABDOMEN & | Phone: | [place], [place] | | | | | [address] | | [address] | | | | | IV CONTRAST | Fax: | Phone: | | | | | [place] | [phone] | [phone] | | | | | ABDOMEN&PELV | | Fax: | | | | | IS | | [phone] | | | | | W/CONTRAST | [...] | 2015 | Encounter | Lab at [facility] [address] | | | | | | [address] [facility] | | | | | | Health and Healing, | | | | | | Building 1, 3rd | | | | | | Floor [place], [place] | | | | | | [address] | | | | | | [phone] | | | +--------+ + + + [...] Orquidea Cristobal, | | | 2019 | abrahamled | | DEPARTMENT COORDINATOR [address] | | | | | | [place], [place] | | | | | | [address] | | | | | | [phone] | | | | | | | [...] | [facility] | [address] | [place] [address] | | | OF CARE TESTS | | | | + + + + + documented in this encounter Visit Diagnoses + + | Diagnosis | + + | Abdominal pain | + + | Morbid obesity (HCC) Morbid obesity | + + documented in this encounter"
--- OUTSIDE RECORDS SUMMARY | ~2020-03-23 | XMS | Encounter Summary ---
Demographics + + + | Address | [address] | | | [place] [address] | + + + | Home Phone [...] [place], [place] | | | | | [address] | | + + + + + | Ellie Vang | ECON | Unknown | | + + + + + Care Team Providers + +------+ + | Care Irrigation Equipment Installer Name | Role | Phone [...] | | | | Building [address] | [place], [place] | | | | | | [place], | [address] | | | | | | [place] | Phone: | | | | | | [address] | [phone] | | | | | | Phone: | Fax: | | | | | | [phone] | [phone] | | | | | | Fax: | | | | | | | [phone] | | +--------+--------+ + + + + [...] | | | | hernia | [place] | [address] | | | | | without | SURGICAL | [place] Grace | | | | | mention of | CLINIC [address] [place], | | | | | obstruction | [address] | [place] | | | | | or gangrene | AVE | [address] | | | | | | [place], | Phone: | | | | | | [place] [address] | [phone] | | | | | | Phone: | Fax: | | | | | | [phone] | [phone] | | | | | | Fax: | | | | | | | [phone] | | +--------+--------+ + + + + Encounter Details +--------+---------+ + + + | Date | Type | Department | Care Team | Description | +--------+---------+ + + + | 10/07/ | Office | Digestive Health | Hernandez Brian, | Hernia (Primary Dx) | | 2012 | Visit | Center at [facility] [address] | [address] [facility] | | | | | [facility] | [address] [place] | | | | | for Health and | [place], [place] | | | | | [facility] 2 | [address] | | | | | [place], [place] | [phone] | | | | | [address] | | | | | | [phone] | | | +--------+---------+ + + + [...] but [place] [facility] [place] mentioned this was [...] issues. 2. Optimally will need coordination for [facility] Medicaid & [facility] Bariatric program for wt loss. 3. No [...] material. 4. Continue to meet with her General Assembler Installer in the outpatient setting for diet and [...] has been instructed to f/u w/ her social worker health services for a strict diet of <1000 kcal/d [...] CT sca n review, pathophysiology, and teaching. Hoiwe Faria MD MIS/Bariatric Fellow, Pager [phone] [facility] Attending provider: Hernandez Brian MD documented [...] | | 2020 | sherrill | | LIGHT RAIL OPERATOR [address] | | | | | | [place], [place] | | | | | | [address] | | | | | | [phone] | | | | | | | [...]
--- OUTSIDE RECORDS SUMMARY | ~2020-03-23 | XMS | Encounter Summary ---
Demographics + + + | Address | [address] | | | [place] [address] | + + + | Home Phone [...] [place], [place] | | | | | [address] | | + + + + + | Ellie Vnag | ECON | Unknown | | + + + + + Care Team Providers + +------+ + | Care Radiation Oncologist Name | Role | Phone | + [...] | 2015 | Visit | Center at [facility] [address] | [address] [facility] | (Primary Dx); | | | | [address] | [facility] [address] | 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for [facility] and | [place], [place] | with insulin therapy | | | | [place] [address] | [address] | (HCC) | | | | [place], [place] | [phone] | | | | | [address] | | | | | | [phone] | | | +--------+---------+ + + + [...] of Visit: 1:30 to 1:55 (25 minutes [id number]-[id number] with patient). Pt seen tog ether with Rossana Espinoza RD (training) SUBJECTIVE: Working with RN to get access to Docu[employer]ak war water exercises. States she was down to 374lbs by following LRD but with complications (n/v, fainting) - need to obtain records from PCP andresi t. Food Allergies: No Current Physical Activity: Nothing - plans to start swimming this week Diet Recall [place] (100kcal) + Activia Light - 60kcal Atkins [...] post-surgery diet progression. 4. Call or send [employer] message to dietitian with any questions. Contact information was provided. Follow up with dietitian via telephone 1 week after beginning water exercises for weight ch addie. Yuli Childs RD, CNSC, LD Pager# [phone] Rossana Espinoza MS, RD Pgr #[phone] documented i n this encounter Plan of Treatment +--------+ + + + + | Date | Type | Specialty | Care Team | Description | +--------+ + + + + | 04/04/ | Telephone-S | Surgery | Orquidea Cristobal, | | | 2020 | sherrill | | REGISTRATION REP [address] | | | | | | [place], [place] | | | | | | [address] | | | | | | [phone] | | | | | | | [...] X15MIN | e | 8:17 AM | ([facility]) Diabetes | | | | | PDT | mellitus with | | | | | | insulin therapy | | | | | | ([facility]) | | + +--------+ + + + documented in this encounter Visit Diagnoses + + | Diagnosis | + + | Morbid obesity ([facility]) - Primary Morbid obesity | + + | Diabetes mellitus with insulin therapy ([facility]) | + + documented in this encounter
--- OUTSIDE RECORDS SUMMARY | ~2020-03-23 | XMS | Encounter Summary ---
Demographics + + + | Address | [address] | | | [place] [address] | + + + | Home Phone [...] [place], [place] | | | | | [address] | | + + + + + | Ellie Vang | ECON | Unknown | | + + + + + Care Team Providers + +------+ + | Care Dispensary Technician Name | Role | Phone | [...] Records | | 2020 | | Center [place] [address] [address] | MD [address] | Review | | | | [facility] | [facility] | | | | | [facility] and | [place], [place] | | | | | [place] [address] | [address] | | | | | [place], [place] | [phone] | | | | | [address] | | | | | | [phone] | | | +--------+ + + + [...] | | 2019 | sherrill | | REPORTING ANALYST [address] | | | | | | [place], [place] | | | | | | [address] | | | | | | [phone] | | | | | | | | +--------+ + + + + documented as of this encounter Visit Diagnoses Not on filedocumented in this encounter"
--- OUTSIDE RECORDS SUMMARY | ~2020-03-23 | XMS | Encounter Summary ---
[...] [place], [place] | | | | | [address] | | + + + + + [...] Surgery | | | 2016 | | [place] [address] [address] | | | | | | [address] [facility] | | | | | | for Health and | | | | | | [facility] 2 | | | | | | [place], [place] | | | | | | [address] | | | | | | [phone] | | | +--------+ + + + [...] | | 2019 | sherrill | | SCREW MACHINE OPERATOR [address] | | | | | | [place], [place] | | | | | | [address] | | | | | | [phone] | | | | | | | | +--------+ + + + + documented as of this encounter Visit Diagnoses Not on filedocumented in this encounter"
--- OUTSIDE RECORDS SUMMARY | ~2020-03-23 | XMS | Encounter Summary ---
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 | | type 2 without | | [...] | 2020 | cheduled | | POLICY WRITER [address] | | | | | | [place], [place] | | | | | | [address] | | | | | | [phone] | | | | | | | [...] HTN | | | | | | AMAAR treated with | | | | | [...] | + + + + + | [employer] | [address] | [place] [address] | | | SERVICES, CORE | CLARENCE [...] [facility] | [address] | [place] [address] | | | SERVICES, CORE | PARK [...] [facility] | [address] [facility] | [place] [address] | | | SERVICES, SPECIAL | PARK [...] B: | | | | | | zSoup.Meniga/CSPerformed | | | | | | by OROS,500 | | | | | | Liliana Martinez [place] [facility] | | | | | | [address] | | | | | | [phone].zSoup. | | | | | | MenigaIsmael MD, | | | | | | [...] [facility] | [address] | [place], [place] | | | [facility] | | [address] | | + + + + + [...] [facility] | [address] | [place] [address] | | | SERVICES, LYDIA | CLARENCE [...] [facility] | [address] | [place] [address] | | | SERVICES, CORE | CLARENCE [...] [facility] | [address] | [place] [address] | | | SERVICES, CORE | PARK [...] [facility] | [address] | [place] [address] | | | SERVICES, CORE | CLARENCE [...] [facility] | [address] | [place] [address] | | | CLAIRE, CORE | PARK [...] ALEJANDRA | [address] | [place] [address] | | | SERVICES, CORE | PARK [...]
--- OUTSIDE RECORDS SUMMARY | ~2020-03-23 | XMS | Encounter Summary ---
Demographics + + + | Address | [address] | | | [place] [address] | + + + | Home Phone [...] [place], [place] | | | | | [address] | | + + + + + | Ellie Vang | ECON | Unknown | | + + + + + Care Team Providers + +------+ + | Care Buncher Operator Name | Role | Phone | [...] | Pain | Diagnoses | Analisa Georges Bag Patcher Psych | | | | Management | Morbid | DANIELLE BrunerP | Ch[facility] [address] | | | | | obesity with | [address] | | | | | BMI of [address] | Center for | | | | | and over, | [place], [place] | Health and | | | | | adult (HCC) | [address] | Healing, | | | | | Procedures | Phone: | Building | | | | | CONSULT TO | [phone] | 1,15th Floor | | | | | PAIN | Fax: | [place], [place] | | | | | MANAGEMENT | [phone] | [address] | | | | | [place] | | Phone: | | | | | PSYCHIATRIC | | [phone] | | | | | DIAGNOSTIC | | Fax: | | | | | EVAL, NO MED | | [phone] | | | | | [facility] [place] | | | | | | [...] | [facility] | | | with GILL TENDER | | hypertension | [address] | [address] | | | | | Right | [address] | [address] | | | | | heart | [place], [place] | [place] for | | | | | failure | [address] | Health and | | | | | ([facility]) Type | Phone: | Healing, | | | | | 2 diabetes | [phone] | Building 2 | | | | | mellitus | Fax: | [place], [place] | | | | | without | [phone] | [address] | | | | | complication | | Phone: | | | | | , with | | [phone] | | | | | long-term | | Fax: | | | | | current use | | [phone] | | | | | of insulin [...] | 2016 | Visit | Center at [facility] 3485 | [facility] [address] | BMI of 70 and over, | | | | [address] | [facility] [place] | adult ([facility]) (Primary | | | | for Health and | [address] | Dx); Chronic | | | | Healing, Building 2 | | diastolic heart | | | | [place], [place] | | failure (HCC); | | | | [address] | | Immobility; Severe | | | [...] encounter Patient Instructions Patient Instructions Shereen Georges [facility] - 02/02/2017 9:00 AM PDTPlan: The [...] to your private appointme nt with the coupon clerk. These classes will be scheduled apporoximately 1 month apart to allow time for you to put the teaching into action. Please call [phone] + Labs needed: Pre op: drug screen [...] are done + EKG: Please Have your dragline mechanic do the eval and send it to us + Pre-op Psychological Evaluation: Your referral is at [facility], The Pain Management Office will [...] be safely completed. + Sign up for Wantworthy so that we can communicate easily back and forth Once the above list is completed and copies have been received by our office, we will submi t for insurance authorization then schedule with the surgeon. KAIN De Dios DNP, HYPNOTHERAPIST Nurse Practitioner for Bariatric Surgery [facility] | [address] | [place], [place] | [address] | documented in this encounter Progress Notes Shereen Georges ACNP - 02/02/2017 9:00 AM PDTFormatting of this note might be different f rom the original. BARIATRIC INITIAL VISIT Provider: Shereen Pinto DNP, ACNP, HYPNOTHERAPIST Referring Provider: Fadi Goodrich DO Reason for [...] t loss. Consults: Cardiology: Dr. Edson [facility] Catalyst Concentration Operator: Nickie : [facility] Paula But comes to magen Rigging Worker at [facility]: Dr. Zhong for weight loss medication Muslim or cultural reason you would refuse blood [...] once daily., Disp : , Rfl: CALCIUM [id number] ORAL, Take 2 tablets by mouth two [...] History Narrative Updated 11/09/15 She lives in [place] with her mother and her sister (also her caregiver) lives in an apa rtment/duplex below. She has 2 grandchildren (age 4 and 7) who live with her daughter and son-in-law Her boyfriend lives in [place] Family History Problem Relation Heart Attack Father [...] extre mity edema, hypertension, hyperlipidemia. Denies CHF, DE, ischemic heart disease, or pulmon nikki hypertension. [...] management, and was referred as well to investment advisor. Plan: Request that her dragline mechanic clear her, and make recommendations 3. Mammogram: [...] to your private appointme nt with the coupon clerk. These classes will be scheduled apporoximately 1 month apart to allow time for you to put the teaching into action. Please call [phone] + Labs needed: lipids, CBC, CMP, TSH, [...] are done + EKG: Please Have your dragline mechanic do the eval and send it to us + Pre-op Psychological Evaluation: Your referral is at [facility], The Pain Management Office will [...] be safely completed. + Sign up for Wantworthy so that we can communicate easily back and forth Once the above list is completed and copies have been received by our office, we will submi t for insurance authorization then schedule with the surgeon. Shereen Pinto DNP, DANIELLEP, HYPNOTHERAPIST Nurse Practitioner for Bariatric Surgery [facility] | [address] | [place], [place] | [address] | documented in this encounter Plan of Treatment +--------+ + + + + | Date | Type | Specialty | Care Team | Description | +--------+ + + + + | 04/04/ | Telephone-S | Surgery | Orquidea Cristobal, | | | 2019 | cheduled | | HYPNOTHERAPIST [address] | | | | | | [place], [place] | | | | | | [address] | | | | | | [phone] | | | | | | | [...]
--- OUTSIDE RECORDS SUMMARY | ~2020-03-23 | XMS | Encounter Summary ---
Demographics + + + | Address | [address] | | | [place] [address] | + + + | Home Phone [...] [place], [place] | | | | | [address] | | + + + + + | Ellie Vang | ECON | Unknown | | + + + + + Care Team Providers + +------+ + | Care Production Manager Name | Role | Phone [...] | | | | | | [place], [place] | | | | | | [address] | | | | | | [phone] | | | +--------+ + + + [...] | | 2019 | sherrill | | RESIDENTIAL PLUMBER [address] | | | | | | [place], [place] | | | | | | [address] | | | | | | [phone] | | | | | | | | +--------+ + + + + documented as of this encounter Visit Diagnoses Not on filedocumented in this encounter"
--- OUTSIDE RECORDS SUMMARY | ~2020-03-23 | XMS | Encounter Summary ---
Demographics + + + | Address | [address] | | | [place] [address] | + + + | Home Phone [...] [place], [place] | | | | | [address] | | + + + + + | Ellie Vang | ECON | Unknown | | + + + + + Care Team Providers + +------+ + | Care Dresser Tender Name | Role | Phone | + +------+ + | Fadi Goodrich DO | PCP | | + +------+ + Encounter Details +--------+ + + + + | Date | Type | Department | Care Team | Description | +--------+ + + + + | 12/31/ | Abstract | Digestive Health | Hernandez Brian, | | | 2012 | | [place] [address] [address] | [address] [facility] | | | | | [address] [facility] | [facility] | | | | | for [facility] and | [place], [place] | | | | | [facility] 2 | [address] | | | | | [place], [place] | [phone] | | | | | [address] | | | | | | [phone] | | | +--------+ + + + [...] | | 2019 | sherrill | | AUTOMOBILE ACCESSORIES SALESPERSON [address] | | | | | | [place], [place] | | | | | | [address] | | | | | | [phone] | | | | | | | | +--------+ + + + + documented as of this encounter Visit Diagnoses Not on filedocumented in this encounter"
--- OUTSIDE RECORDS SUMMARY | ~2020-03-23 | XMS | Encounter Summary ---
Demographics + + + | Address | [address] | | | [place] [address] | + + + | Home Phone [...] [place], [place] | | | | | [address] | | + + + + + | Ellie Vang | ECON | Unknown | | + + + + + Care Team Providers + +------+ + | Care Loan Underwriter Name | Role | Phone | [...] | | | | | Center at [facility] [address] | [facility] [place] | | | | | [address] | [address] | | | | | [facility] and | [phone] | | | | | [facility] 2 | | | | | | [facility] [place] | | | | | | [address] | | | | | | [phone] | | | +--------+ + + + [...] called in Phentermine 37.5 MG tab to [facility] [address] [phone]. Franks's order. STUART THAPA RN documented in this e ncounter Plan of Treatment +--------+ + + + + | Date | Type | Specialty | Care Team | Description | +--------+ + + + + | 04/04/ | Telephone-S | Surgery | Orquidea Cristobal, | | | 2020 | abrahamled | | TRUCK LOADER AND UNLOADER [address] | | | | | | [place] | | | | | | [address] | | | | | | [phone] | | | | | | | | +--------+ + + + + documented as of this encounter Visit Diagnoses Not on filedocumented in this encounter"
--- OUTSIDE RECORDS SUMMARY | ~2020-03-23 | XMS | Encounter Summary ---
Demographics + + + | Address | [address] | | | [place] [address] | + + + | Home Phone [...] [place], [place] | | | | | [address] | | + + + + + | Ellie Vang | ECON | Unknown | | + + + + + Care Team Providers + +------+ + | Care Senior Sql Database Developer Name | Role | Phone [...] [address]arris | | | | | [facility] | Ave [place], [place] | | | | | Health and Healing, | [address] | | | | | [place] [address] | [phone] | | | | | Floor [place], [place] | | | | | | [address] | | | | | | [phone] | | | +--------+ + + + [...] | | 0 | | | | CRB&KAP-Q9-XTL47-GEN | mouth two times | | | [...] 2020 | sherrill | | SALES AND MARKETING SPECIALIST [address] | | | | | | [place], [place] | | | | | | [address] | | | | | | [phone] | | | | | | | [...]
--- OUTSIDE RECORDS SUMMARY | ~2020-03-23 | XMS | Encounter Summary ---
Demographics + + + | Address | [address] | | | [place] [address] | + + + | Home Phone [...] [place], [place] | | | | | [address] | | + + + + + | Ellie Vang | ECON | Unknown | | + + + + + Care Team Providers + +------+ + | Care Dealer Compliance Representative Name | Role | Phone | [...] 2018 | | Preventive at [facility] | MD [address] | (PHENTERMINE 37.5 mg | | | | [address] | [facility] [place] | oral tablet); | | | | [place] for [facility] | [address] | Refill Request | | | | and Healing, | [phone] | | | | | [address] | | | | | | [place], [place] | | | | | | [address] | | | | | | [phone] | | | +--------+--------+ + + + [...] Seen By Ordering Provider: [facility] at 3:36 pm with Randell Franks MD. Follow Up Plan: Next Appointment in [facility] is on 06/30/19 at 11:15 am with Beronica Franks MD. Please review and sign if appropriate elephone Encounter - Re Evy colindres - 02/15/2019 11:34 AM PDTREFILL REQUEST Person calling: Pt Medication(s) Needed: PHENTERMINE 37.5 mg oral tablet Pharmacy (Name & Location) Preference: [facility]. [place] How many days worth [...] | | 2019 | sherrill | | AUTHORIZATION NURSE [address] | | | | | | [place], [place] | | | | | | [address] | | | | | | [phone] | | | | | | | | +--------+ + + + + documented as of this encounter Visit Diagnoses Not on filedocumented in this encounter"
--- OUTSIDE RECORDS SUMMARY | ~2020-03-23 | XMS | Encounter Summary ---
Demographics + + + | Address | [address] | | | [place] [address] | + + + | Home Phone [...] Providers + +------+ + | Care Meter Installer And Remover Name | Role | Phone | [...] [facility] [address] | AGACN [address] | | | | | [facility] | [place], [place] | | | | | [facility] and | [address] | | | | | [place] [address] | [phone] | | | | | [place], [place] | | | | | | [address] | | | | | | [phone] | | | +--------+ + + + [...] - 04/04/2019 3:40 PM PDTSeryesenia mujica from [facility] called seeking additional information on IV extension Lync'd and transferred to RN elephone Encounter - Mayi Pacheco MA - 04/04/2019 2:28 PM PDTI spoke to the [facility] PCP office and they will let the [...] As per PCP covering provider: (Keerthi Prakash [facility]) Pt is still very dehydrated. Does she [...] | | 2019 | sherrill | | CIRCULATION ANALYST [address] | | | | | | [place], [place] | | | | | | [address] | | | | | | [phone] | | | | | | | | +--------+ + + + + documented as of this encounter Visit Diagnoses Not on filedocumented in this encounter"
--- OUTSIDE RECORDS SUMMARY | ~2020-03-23 | XMS | Encounter Summary ---
Demographics + + + | Address | [address] | | | [place] [address] | + + + | Home Phone [...] [place], [place] | | | | | [address] | | + + + + + | Ellie Vang | ECON | Unknown | | + + + + + Care Team Providers + +------+ + | Care Substation Maintenance Technician Name | Role | Phone [...] Diabetes & | Morbid | Kathy M, STRINGER UP SOLDERING MACHINE | [address] [address] | | | | Metabolism | obesity | [address] | [address] | | | | | (HCC) | [address], | Loop | | | | | Procedures | [address] | Physician's | | | | | CONSULT TO | [place], [place] | Pavilion | | | | | ENDO | [address] | Physician's | | | | | [address] | Phone: | Pavilion | | | | | | [phone] | [place], [place] | | | | | | Fax: | [address] | | | | | | [phone] | Phone: | | | | | | | [phone] | | | | | | | Fax: | | | | | | | [phone] | +--------+--------+ + + + + Encounter [...] | | | Center at Physicians | [place], [place] | (Primary Dx); Morbid | | | | [address] | [address] | obesity (HCC) | | | | [address] | [phone] | | | | | Physician's Pavilion | | | | | | Physician's | | | | | | Pavilion [place], | | | | | | [place] [address] | | | | | | [phone] | | | +--------+---------+ + + + [...] | | 2019 | sherrill | | BUTTON SPINDLER [address] | | | | | | [place], [place] | | | | | | [address] | | | | | | [phone] | | | | | | | [...]
--- OUTSIDE RECORDS SUMMARY | ~2020-03-23 | XMS | Encounter Summary ---
Demographics + + + | Address | [address] | | | [place] [address] | + + + | Home Phone [...] [place], [place] | | | | | [address] | | + + + + + [...] [address]arris | | | | | Farris [facility] | Ave [place], [place] | | | | | Health and Healing, | [address] | | | | | [place] [address] [facility] | [phone] | | | | | Floor [place], [place] | | | | | | [address] | | | | | | [phone] | | | +--------+ + + + [...] | | 0 | | | | CRB&SJW-E3-OPG88-GEN | mouth two times | | | [...] | | 2020 | cheduled | | [employer] [address] | | | | | | [place], [place] | | | | | | [address] | | | | | | [phone] | | | | | | | [...] + + + | EXAM: Esophagram with geriatric nursing assistant radiograph HISTORY: RYGB 03/01/2018, | [facility] | | vomiting/pain ever since COMPARISON: 04/27/2018 CT TECHNIQUE: | RADIOLOGY VOICE | | Skin Therapist radiograph was performed. Single contrast exam of the esophagus, | RECOGNITION 2 | | gastric pouch, and gastrojejunostomy in upright positioning. | | | Radiation dose reduction technique was maximized where appropriate | | | using pulsed fluoroscopy and fluoro-store images. Fluoro Time 57 | | | second(s) FINDINGS: Skin Therapist shows stone in the upper pole of [...] AM PST EXAM: Esophagram | | with geriatric nursing assistant radiograph HISTORY: RYGB 03/01/2018, vomiting/pain ever since COMPARISON: | | 04/27/2018 CT TECHNIQUE: Skin Therapist radiograph was performed. Single contrast exam of the | | esophagus, gastric pouch, and gastrojejunostomy in upright positioning. Radiation dose | | reduction technique was maximized where appropriate using pulsed fluoroscopy and | | fluoro-store images. Fluoro Time 57 second(s) FINDINGS:Skin Therapist shows stone in the upper | | [...]
--- OUTSIDE RECORDS SUMMARY | ~2020-03-23 | XMS | Encounter Summary ---
[...] [place], [place] | | | | | [address] | | + + + + + | Ellie Vang | ECON | Unknown | | + + + + + Care Team Providers + +------+ + | Care Maintenance Service Technician Name | Role | Phone [...] Health | Ronna Clarke, | History of Franyd-en-Y | | 2018 | Visit | Center at [facility] [address] | ACNP [address] | gastric bypass | | | | [address] | Ave [place], [place] | (Primary Dx); | | | | for Health and | [address] | Ventral hernia | | | | Healing, Building [address] | [phone] | without obstruction | | | | [facility] [place] | | or gangrene; Mixed | | | | [address] | | hyperlipidemia; | | | | [phone] | | Diabetes mellitus | | | [...] is doing Refill oxycodone Rx +Take acid human resources communications manager for first 3 mos, then wean [...] to POC and will call or send [facility] if any issues. documented in this [...] times daily. , Disp: , Rfl: CALCIUM CRB&VMF-L8-BIK61-GENIS ORAL, Take 2 tablets by mouth two [...] History Narrative Updated 11/09/15 She lives in [place] with her mother and her sister (also her caregiver) lives in an apa rtment/duplex below. She has 2 grandchildren (age 4 and 7) who live with her daughter and son-in-law Her boyfriend lives in [place] HFpEF, DM2, HTN, Sleep Apnea (unable to [...] program here and refer her to our parts specialist who also has expertise in physical [...] Increase torsemide to pre-surgical dose +Take acid human resources communications manager for first 3 mos, then wean [...] she will make an appointment with her Slot Machine Floor Person to discuss insulin dosing and CBGs 10. [...] and documenting after this visit. Ronna FINNEGAN TECHNICAL SALES CONSULTANT Bariatric Surgery Nurse Practitioner [facility] | [address] | [place], [place] | [address] | documented in this e ncounter Plan of Treatment +--------+ + + + + | Date | Type | Specialty | Care Team | Description | +--------+ + + + + | 04/04/ | Telephone-S | Surgery | Orquidea Cristobal, | | | 2019 | sherrill | | TECHNICAL SALES CONSULTANT [address] | | | | | | [place], [place] | | | | | | [address] | | | | | | [phone] | | | | | | | [...] + | [facility] - | [address] | [place] [address] | | | [place] | | | | + + + [...]
--- OUTSIDE RECORDS SUMMARY | ~2020-03-23 | XMS | Encounter Summary ---
Demographics + + + | Address | [address] | | | [place] [address] | + + + | Home Phone [...] [place], [place] | | | | | [address] | | + + + + + | Ellie Vang | ECON | Unknown | | + + + + + Care Team Providers + +------+ + | Care Commercial Attorney Name | Role | Phone | + +------+ + | Fadi Goodrich DO | PCP | | + +------+ + Encounter Details +--------+ + + + + | Date | Type | Department | Care Team | Description | +--------+ + + + + | 06/09/ | Abstract | Digestive Health | Kathy Feldman, | | | 2012 | | [place] [address] [address] | CARAMEL MAKER [address] | | | | | [address] [facility] | [facility] 350 | | | | | for Health and | [place], [place] | | | | | [facility] 2 | [address] | | | | | [place], [place] | [phone] | | | | | [address] | | | | | | [phone] | | | +--------+ + + + [...] | | 2019 | sherrill | | WATER TREATMENT OPERATOR [address] | | | | | | [place], [place] | | | | | | [address] | | | | | | [phone] | | | | | | | | +--------+ + + + + documented as of this encounter Visit Diagnoses Not on filedocumented in this encounter"
--- OUTSIDE RECORDS SUMMARY | ~2020-03-23 | XMS | Encounter Summary ---
Demographics + + + | Address | [address] | | | [place] [address] | + + + | Home Phone [...] [place], [place] | | | | | [address] | | + + + + + | Ellie Vang | ECON | Unknown | | + + + + + Care Team Providers + +------+ + | Care Vp Ancillary Name | Role | Phone | + [...] Physicians | | | | | | [facility] | [place], [facility] | | | | | | [place], [place] | Floor | | | | | | [address] | [place], [place] | | | | | | Phone: | [address] | | | | | | [phone] | Phone: | | | | | | | [phone] | | | | | | | Fax: | | | | | | | [phone] | +--------+--------+ + + + + Encounter [...] | [facility] [address] [place], | | | | | [address] | [place] [address] | | | | | Physicians [facility], | [phone] | | | | | 2nd Floor | | | | | | [place], [place] | | | | | | [address] | | | | | | [phone] | | | +--------+---------+ + + + [...] Axel Gonzales MD - 03/06/2014 1:15 PM [facility] [...] a HIDA scan to be done in [place] to verify that she does not have [...] Surgery Resident Department of General Surgery Pager: [phone] I saw and evaluated the patient. I agree with the findings and the plan of care as dequan han in the resident s note. PRADIP STARR MD [facility] GENERAL SURGERY AT [facility] [address] [facility] Mailcode: L223a [place] [address] documented in this encoun ter Plan of Treatment +--------+ + + + + | Date | Type | Specialty | Care Team | Description | +--------+ + + + + | 04/04/ | Telephone-S | Surgery | Orquidea Cristobal, | | | 2019 | sherrill | | LINE RUNNER [address] | | | | | | [place], [place] | | | | | | [address] | | | | | | [phone] | | | | | | | [...] | + + + + + | [facility] | [address] | [place] [address] | | | SERVICES, CORE | [address] | | | + + + + + documented in this encounter Visit Diagnoses + + | Diagnosis | + + | Cholecystitis - Primary Cholecystitis, unspecified | + + documented in this encounter
--- OUTSIDE RECORDS SUMMARY | ~2020-03-23 | XMS | Encounter Summary ---
Demographics + + + | Address | [address] | | | [place] [address] | + + + | Home Phone [...] [place], [place] | | | | | [address] | | + + + + + | Ellie Vang | ECON | Unknown | | + + + + + Care Team Providers + +------+ + | Care Documentation Coordinator Name | Role | Phone | [...] from Patient; | | 2017 | | [place] [address] | MD [address] | Postoperative | | | | Ave Mailcode: CH[address]S | [place], [place] | infection | | | | [facility] | [address] | | | | | and Healing, | [phone] | | | | | [place] [address] [facility] | | | | | | [place], [place] | | | | | | [address] | | | | | | [phone] | | | +--------+ + + + [...] back as soon as possible. Routed to [address]. Electronical ly signed by Magdalene Randolph at 04/12/2018 10:39 AM PDTdocumented in this encounter Plan of Treatment +--------+ + + + + | Date | Type | Specialty | Care Team | Description | +--------+ + + + + | 04/04/ | Telephone-S | Surgery | Orquidea Cristobal, | | | 2020 | cheduled | | COMPUTER SCIENCES PROFESSOR [address] | | | | | | [place] | | | | | | [address] | | | | | | [phone] | | | | | | | | +--------+ + + + + documented as of this encounter Visit Diagnoses Not on filedocumented in this encounter"
--- OUTSIDE RECORDS SUMMARY | ~2020-03-23 | XMS | Encounter Summary ---
Demographics + + + | Address | [address] | | | [place] [address] | + + + | Home Phone [...] [place], [place] | | | | | [address] | | + + + + + | Ellie Vang | ECON | Unknown | | + + + + + Care Team Providers + +------+ + | Care Wood Pile Driver Operator Name | Role | [...] | Event | Medicine Clinic at | [place], [place] | | | | | [facility] | [address] | | | | | [address] | | | | | | [facility] | | | | | | and Healing, | | | | | | Building [address] | | | | | | [place], [place] | | | | | | [address] | | | | | | [phone] | | | +--------+ + + + [...] renal failure no electrolyte abnormalities no dialysis Urology/Locomotive Oiler: LMP: 05/22/2019 patient reports irregular and has [...] Transportation: TBD (patient working with social media campaign manager) documented in this enco unter Plan of Treatment +--------+ + + + + | Date | Type | Specialty | Care Team | Description | +--------+ + + + + | 04/04/ | Telephone-S | Surgery | Orquidea Cristobal, | | | 2020 | sherrill | | EVAPORATOR HELPER [address] | | | | | | [place] | | | | | | [address] | | | | | | [phone] | | | | | | | | +--------+ + + + + documented as of this encounter Visit Diagnoses Not on filedocumented in this encounter
--- OUTSIDE RECORDS SUMMARY | ~2020-03-23 | XMS | Encounter Summary ---
Demographics + + + | Address | [address] | | | [place] [address] | + + + | Home Phone [...] [place], [place] | | | | | [address] | | + + + + + [...] ENDOSCOPY | | 2017 | | [facility] | [address] | | | | | Rd [facility] | [place], [place] | | | | | Hospital Admitting | [address] | | | | | Desk Located on the | [phone] | | | | | 9th floor | | | | | | [place], [place] | | | | | | [address] | | | +--------+---------+ + + + [...] Discharge Instructions Instructions Keerthi Bill, KELSIE - [facility] Instructions after EGD (Upper Endo scopy) [...] hours or on weekends and holiday Hospital Quality Checker toll free [phone]. [phone] and have the GI doctor environmental designer paged. The provider who performed your procedure [...] | | 0 | | | | CRB&CTP-L4-RUT97-GEN | mouth two times | | | [...] 2:35 PM PST PRE PROCEDURE NOTE: MR# [id number] Subjective: Elzbieta Cristina is a 43 y.o. [...] | | 2019 | cheduled | | COMPUTER EQUIPMENT REPAIRER [address] | | | | | | [place], [place] | | | | | | [address] | | | | | | [phone] | | | | | | | [...] -----+ | MRN: | [facility] | | [id number] Date: 06/23/2018Patient Name: Elzbieta Curtis #: | ENDOSCOP Y | | [id number] of : 1975CSN: [id number] Type: | | | AmbulatoryRoom: SORProcedure: Upper GI | | | endoscopyIndications: Nausea with vomiting, Status post | | | Vmya-fv-JSbxumkfnl: KALEB WILCOX MD (Doctor), JOSE | | | NASIMA, Hydraulic Dredge Operator | | | (Hydraulic Dredge Operator)Referring MD: DANIELLE GARCÍAPRequestdonya | | | [...] | | | The Olympus [id number]-[id number] Gastroscope #[id number] was | | | introduced through the [...] endoscope without resistance. The | | | vkrxt-gq-urhyqcq limb was characterized by healthy appearing | [...] 06/23/2018 3:58 [facility] Letter to: FADI GOODRICH, DO | | [...] AMES | [address] | [place], [place] | | | [place] [facility]INT OF CARE | [address] | [address] | | | TESTS | | | [...] Thu06/23/18 at 1532, | | | Until [facility] 06/24/18 at 0027, | | | hypopnea | | + +---+ | | | + +---+ | ondansetron (ZOFRAN) injection | | | 4 mg 4 mg, intravenous, | | | POSTPROCEDURE PRN, 1 dose, | | | Starting [facility] 06/23/18 at 1532, | | | Until [facility] 06/24/18 at 0027, | | [...] | | | PRN, 1 dose, Starting [facility] | | | | | | | 06/23/18 at 1532, Until [facility] | | | | | [...]
--- OUTSIDE RECORDS SUMMARY | ~2020-03-23 | XMS | Encounter Summary ---
Demographics + + + | Address | [address] | | | [place] [address] | + + + | Home Phone [...] Providers + +------+ + | Care Gaming Table Operator Name | Role | Phone [...] + + | 02/14/ | Telephone | [facility] | Gee, | Other | | 2020 | | NEUROLOGY [address] | (Documentation) | | | | [address] | | | | | | [place] | | | | | | [address] | | | | | | [phone] | | | +--------+ + + + [...] | | | | | | [place] [address] | | | | | | [phone] | | | | | | | | +--------+ + + + + | 04/18/ | Procedure | Neurology | Camille De La Paz, | | | 2019 | visit | | MD Saum[address] MOE | | | | | | [address] | | | | | | [place] [address] | | | | | | [phone] | | | | | | | | +--------+ + + + + documented as of this encounter Visit Diagnoses Not on filedocumented in this encounter"
--- OUTSIDE RECORDS SUMMARY | ~2020-03-23 | XMS | Encounter Summary ---
Demographics + + + | Address | [address] | | | [place] [address] | + + + | Home Phone [...] [place], [place] | | | | | [address] | | + + + + + | Ellie Vang | ECON | Unknown | | + + + + + Care Team Providers + +------+ + | Care Head Waiter/Waitress Banquet Name | Role | Phone | + +------+ + | Fadi Goodrich DO | PCP | | + +------+ + Encounter Details +--------+ + + + + | Date | Type | Department | Care Team | Description | +--------+ + + + + | 10/27/ | Telephone | [facility] at [facility] | Leslie Mistry, | | | 2017 | | [address] | PhD [address] [facility] | | | | | [facility] | [facility] | | | | | and Healing, | [place], [place] | | | | | [facility] | [address] | | | | | Floor [place], [place] | [phone] | | | | | [address] | | | | | | [phone] | | | +--------+ + + + [...] Name: Elzbieta Cristina : 1975 Medical Record: [id number] Age: 42 y.o. Weight on 10/02/17, per patient report: 305 lbs Weight on 09/11/17: 389, BMI 73.54 Initial Consultation Date: 10/02/2017 Re-evaluated patient's candidacy for bariatric surgery. Reviewed recommendations from initi al visit: 1. Eat more regularly and eat healthier foods --> Completed, reported the following diet: - 8:30 AM (30 minutes after waking) has tajik yogurt, fruit, and some granola - 11:30 breaded chicken and fresh fruit 3 PM tajik yogurt, gustavo crackers, or raw vegetables 6 [...] the phone. Leslie Mistry, PhD Clinical Psychologist [facility] [address] [facility] Health and [facility], 15th [place] [address] [id number] signed by Leslie Mistry, PhD at 10/27/2017 10:59 AM DIETERdocamille soler in this encounter Plan of Treatment +--------+ + + + + | Date | Type | Specialty | Care Team | Description | +--------+ + + + + | 04/04/ | Telephone-S | Surgery | Orquidea Cristobal, | | | 2019 | sherrill | | VISUAL EDUCATOR [address] | | | | | | [place], [place] | | | | | | [address] | | | | | | [phone] | | | | | | | | +--------+ + + + + documented as of this encounter Visit Diagnoses Not on filedocumented in this encounter"
--- OUTSIDE RECORDS SUMMARY | ~2020-03-23 | XMS | Encounter Summary ---
Demographics + + + | Address | [address] | | | [place] [address] | + + + | Home Phone [...] [place], [place] | | | | | [address] | | + + + + + | Ellie Vang | ECON | Unknown | | + + + + + Care Team Providers + +------+ + | Care Propagation Worker Name | Role | Phone | [...] | | | Ave Mailcode: CH4S | [place], [place] | | | | | [facility] | [address] | | | | | and [place], | [phone] | | | | | [place] [address] | | | | | | Floor [place], [place] | | | | | | [address] | | | | | | [phone] | | | +--------+ + + + [...] | | 2020 | sherrill | | RELIEF DOCKING MASTER [address] | | | | | | [place] | | | | | | [address] | | | | | | [phone] | | | | | | | | +--------+ + + + + documented as of this encounter Visit Diagnoses Not on filedocumented in this encounter"
--- OUTSIDE RECORDS SUMMARY | ~2020-03-23 | XMS | Encounter Summary ---
Demographics + + + | Address | [address] | | | [place] [address] | + + + | Home Phone [...] [place], [place] | | | | | [address] | | + + + + + | Ellie Vang | ECON | Unknown | | + + + + + Care Team Providers + +------+ + | Care Senior Care Manager Name | Role | Phone | [...] | | 2 diabetes | [place], | [place], [place] | | | | | mellitus | [place] [address] | [address] | | | | | without | Phone: | Phone: | | | | | complication | [phone] | [phone] | | | | | (HCC) | Fax: | Fax: | | | | | Procedures | [phone] | [phone] | | | | | [place] EST | | | | | | | PATIENT | | | | | | | LEVEL V | | | +--------+--------+ + + + + Encounter Details +--------+---------+ + + + | Date | Type | Department | Care Team | Description | +--------+---------+ + + + | 09/15/ | Office | Cardiology in | Randlel Franks, | Hypothyroidism, | | 2020 | Visit | [facility] | [address] | unspecified type | | | | [place] at | [place], [place] | (Primary Dx); Severe | | | | [place] [address] [address] | [address] | Morbid obesity | | | | [address] [facility] | [phone] | (HCC), BMI 88 | | | | [facility] | | | | | | [place], [place] | | | | | | [address] | | | | | | [phone] | | | +--------+---------+ + + + [...] due to Bromocriptine Type 2 diabetes mellitus ([facility]) 04/14/2013 Past Surgical History Procedure Laterality Date Tonsillectomy and adenoidectomy Appendectomy, open 2010 Umbilical hernia repair 2010 Treatment of ankle fracture with screws remaining Incision and drainage of wound abscess x2 midline transverse wound s/p open appendectomy 2010 Ventral hernia repair 10/2012 Dr. Andie Brian Incisional hernia repair 03/01/2015 [facility]/ Dr. Cantu. Primary fascial closure and scar excision Lap gastric byp, and nilesh-en-y gastroenterostomy w/ nilesh limb 150 cm or less [facility] Cholecyst[facility], laparoscopic Current Outpatient Medications [...] by mouth once daily at bedtime. CALCIUM CRB&BWI-L1-RKG78-GENIS ORAL Take 2 tablets by mouth two [...] 50 mg by mouth once daily. thyroid (BISTRO ATTENDANT THYROID) 30 mg oral tablet tab Take [...] 9 CREATININE PLASMA (LAB) 0.82 EGFR - EMIRATI >60 EGFR NON -EMIRATI >60 GLUCOSE, PLASMA (LAB) 94 CALCIUM, PLASMA [...] is currently being managed well by her Geological Aide with diuretics and main tenance of her [...] management of her heart failure by her Geological Aide 3) Continue management of her ventral hernia [...] | | 2019 | chesteve | | INSURANCE ACCOUNT EXECUTIVE [address] | | | | | | [place], [place] | | | | | | [address] | | | | | | [phone] | | | | | | | | +--------+ + + + + documented as of this encounter Procedures + +--------+ + + + | Procedure Name | Priori | Date/Time | Associated Diagnosis | Comments | | | ty | | | | + +--------+ + + + | [place] COLLECTION VENOUS | Routin | 09/15/2019 | [...] [facility] | [address] | [place] [address] | | | SERVICES, CORE | PARK [...] + | [facility] | [address] | [place] [address] | | | SERVICES, CORE | PARK [...] [facility] | [address] | [place] [address] | | | SERVICES, SPECIAL | CLARENCE [...]
--- OUTSIDE RECORDS SUMMARY | ~2020-03-23 | XMS | Encounter Summary ---
Demographics + + + | Address | [address] | | | [place] [address] | + + + | Home Phone [...] [place], [place] | | | | | [address] | | + + + + + | Ellie Vang | ECON | Unknown | | + + + + + Care Team Providers + +------+ + | Care Pulmonary Physician Name | Role | Phone | [...] [address] | | | | | [place] at | [place], [place] | | | | | [place] [address] | [address] | | | | | [facility] | [phone] | | | | | [facility] | | | | | | [place], [place] | | | | | | [address] | | | | | | [phone] | | | +--------+--------+ + + + [...] Seen By Ordering Provider: Last Appointment in [facility] was on 0 at 3:31 pm with Randell Franks MD. Follow Up Plan: Next Appointment in [facility] is on 03/22/20 at 2:45 pm with Beronica Franks MD. Please review and sign if appropriate elephone Encounter - Elida Kennedy - 02/23/2020 9:39 AM PDTREFILL REQUEST Person calling: Patient Medication(s) Needed: Phentermine Pharmacy (Name & Location) Preference: [facility] [address] [facility] [address] [phone] How many days worth of medication does patient have left? 0 pills left ~~~ ROUTE TO P CAR MED REFILL ~~~ ~~~ If less than 2 days on hand, route as HIGH PRIORITY~~~ documented in this [facility] Plan of Treatment +--------+ + + + + | Date | Type | Specialty | Care Team | Description | +--------+ + + + + | 04/04/ | Telephone-S | Surgery | Orquidea Cristobal, | | | 2019 | sherrill | | SUPERVISOR MOTORCYCLE REPAIR SHOP [address] | | | | | | [place] | | | | | | [address] | | | | | | [phone] | | | | | | | | +--------+ + + + + documented as of this encounter Visit Diagnoses Not on filedocumented in this encounter"
--- OUTSIDE RECORDS SUMMARY | ~2020-03-23 | XMS | Encounter Summary ---
Demographics + + + | Address | [address] | | | [place] [address] | + + + | Home Phone [...] [place], [place] | | | | | [address] | | + + + + + | Ellie Vang | ECON | Unknown | | + + + + + Care Team Providers + +------+ + | Care Cattle Feeder Name | Role | Phone | [...] | [facility] | | | with BUYER ASSISTANT | | hypertension | [address] | [address] | | | | | Right | [address] | [address] | | | | | heart | [place], [place] | [place] for | | | | | failure | [address] | Health and | | | | | ([facility]) Type | Phone: | Healing, | | | | | 2 diabetes | [phone] | Building 2 | | | | | mellitus | Fax: | [place], [place] | | | | | without | [phone] | [address] | | | | | complication | | Phone: | | | | | , with | | [phone] | | | | | long-term | | Fax: | | | | | current use | | [phone] | | | | | of insulin | | | | | | | ([facility] [...] | 2017 | Visit | Center at [facility] [address] | [address] | BMI of 70 and over, | | | | [address] | [place], [place] | adult ([facility]) (Primary | | | | for Health and | [address] | Dx); Diabetes | | | | Healing, Building 2 | | mellitus type 2 | | | | [place], [place] | | without retinopathy | | | | [address] | | ([facility]); | | | | | | Intertriginous [...] 10/30/2017 10:00 AM PDTPlease visit with our [facility] Traffic Enumerator (RD) for instructions about your Bariatric diet, assistance with calorie c ounts, tips and tricks for working with your diet restrictions, and recipes after bariatric surgery. Daily yogurt; even just 1 tablespoon twice a day will provide enough probiotics to optimize digestion. Try to use a high-quality, probiotic-dense yogurt (eg Zaria's, Kobifield, Lif eway Kefir, Snake Charmer DukeSnapchat Ukrainian Yogurt). Remember to chew your food well, [...] breath Staphylococcal infection Stroke ([facility]) TIA (transient ischemic attack) due to Bromocriptine [...] 1 tablet by mouth once daily CALCIUM CRB&MXL-X9-BTS98-GENIS ORAL Take 2 tablets by mouth two [...] History Narrative Updated 11/09/15 She lives in [place] with her mother and her sister (also her caregiver) lives in an artment/duplex below. She has 2 grandchildren (age 4 and 7) who live with her daughter and son-in-law Her boyfriend lives in [place] HFpEF, DM2, HTN, Sleep Apnea (unable to [...] program here and refer her to our front desk specialist who also has expertise in physical [...] a 4-5% rate of reoperation over the marine oil terminal superintendent (i.e. years), as well as other late [...] and may approach 5%. We reviewed the [facility] consent form. We discussed that we [...] | | 2020 | sherrill | | SAP BUSINESS ANALYST [address] | | | | | | [place], [place] | | | | | | [address] | | | | | | [phone] | | | | | | | [...] | | | | | determined by [employer] | | | | | | Laboratories. See | | | | | | Compliance Statement B: | | | | | | [employer] Power.StellaService/CSPerformed | | | | | | by [employer],[address] | | | | | | Liliana Martinez, [facility],[place] | | | | | | [address] | | | | | | [phone].LearnZillionlab. | | | | | | com, [...] | [facility] INT[facility] | | [address] | | + + + + + [...] [facility] | [address] | [place] [address] | | | SERVICES, CORE | PARK [...] [facility] | [address] | [place] [address] | | | SERVICES, CORE | PARK [...] [facility] | [address] | [place] [address] | | | SERVICES, CORE | PARK [...] [facility] | [address] | [place] [address] | | | SERVICES, CORE [...] [facility] | [address] | [place] [address] | | | SERVICES, CORE | CLARENCE [...] [facility] | [address] | [place] [address] | | | SERVICES, CORE | PARK [...]
--- OUTSIDE RECORDS SUMMARY | ~2020-03-23 | XMS | Encounter Summary ---
Demographics + + + | Address | [address] | | | [place] [address] | + + + | Home Phone [...] + | Katalina Padilla | ECON | [address] | | | | | [place], [place] | | | | | [address] | | + + + + + | Ellie Vang | ECON | Unknown | | + + + + + Care Team Providers + +------+ + | Care Legal Process Specialist Name | Role | Phone | [...] | | | | [facility] | [facility] | | | | | Hospital Admitting | [place] [address] | | | | | Desk Located on the | [phone] | | | | | 9th floor | | | | | | [place], [place] | [place], | | | | | [address] | BRANCH OFFICE MANAGER | | +--------+ + + + + Anesthesia Record + + + + + | Procedure Name | Responsible | Anesthesia Start | Anesthesia Stop Time | | | Anesthesiologist | Time | | + + + + + | OPEN VENTRAL HERNIA | Andie Hope MD | 08/19/19 1417 | 08/19/19 7811 | | REPAIR (N/A ) | | [...] | | | , POLINA; Endotracheal | BRANCH OFFICE MANAGER | BRANCH OFFICE MANAGER | | | Tube; 7.5; Oral; [...] be different from the original. Elzbieta Cristina [id number] Vitals Value Taken Time BP 107/67 08/19/2019 [...] - 08/19/2019 1:53 PM PST Elzbieta Cristina [id number] Allergies Allergen Reactions Benadrilina [Diphenhydramine Hcl] Hives [...] w/ nilesh limb 150 cm or less [facility], Dr Pandey Cholecystectomy, laparoscopic Current Medication List Name Sig Last Dose ALPRAZOLAM 1 MG TABLET Take 1 mg by mouth three times daily as needed. 08/18/2019 ASCORBIC ACID (VITAMIN C) 500 MG TABLET Take 1 tablet by mouth once daily. 08/18/2019 ATENOLOL 50 MG TABLET Take 50 mg by mouth once daily at bedtime. Within last 7 days CALCIUM CRB&HSP-P9-WFC01-GENIS ORAL Take 2 tablets by mouth two [...] Date RATE 110 02/22/2018 ATRIALRATE 110 02/22/2018 W[place] 170 02/22/2018 QRS 98 02/22/2018 QT 339 [...] renal failure no electrolyte abnormalities no dialysis Urology/Coloring Checker: LMP: Jul 27, 2019, Mirena IUD Within [...] renal failure no electrolyte abnormalities no dialysis Urology/Coloring Checker: LMP: Jul 27, 2019, Mirena IUD Within [...] for 08/19/2019 Open Ventral Hernia Repair at [facility] by Jorje andersen MD. Past medical hx [...] | | 2019 | cheduled | | BALL MACHINE OPERATOR [address] | | | | | | [place], [place] | | | | | | [address] | | | | | | [phone] | | | | | | | [...]
--- OUTSIDE RECORDS SUMMARY | ~2020-03-23 | XMS | Encounter Summary ---
Demographics + + + | Address | [address] | | | [place] [address] | + + + | Home Phone [...] [place], [place] | | | | | [address] | | + + + + + | Ellie Vang | ECON | Unknown | | + + + + + Care Team Providers + +------+ + | Care Scalloper Name | Role | Phone | + [...] Encounter | Procedural Unit | MD Barb [address] | | | | | ([facility] at [facility] [address] | [address] [place], [place] | | | | | [address] | [address] | | | | | Mailcode: [place] | [phone] | | | | | for Health and | | | | | | Healing, Building [address] | | | | | | [place], [place] | | | | | | [address] | | | | | | [phone] | | | +--------+ + + + [...] Discharge Instructions Instructions Keerthi Bernard RN - 04/07/2019[facility] Care Instructions after EGD (Upper Endos [...] hours or on weekends and holiday Hospital Molding Line Operator toll free [phone]. [phone] and have the GI doctor contract technician paged. The provider who performed your procedure: [...] | | 0 | | | | CRB&WRO-A5-XCE31-GEN | mouth two times | | | [...] from the original. PRE PROCEDURE NOTE: MR# [id number] Subjective: Elzbieta Cristina is a 44 y.o. [...] | | 2020 | cheduled | | MATCH MARKER [address] | | | | | | [place], [place] | | | | | | [address] | | | | | | [phone] | | | | | | | [...] + | MRN: | [facility] | | [id number] Date: 04/07/2019Patient Name: Ezlbieta Curtis #: | ENDOSCOPY | | [id number] of : 1975CSN: [id number] Type: | | | AmbulatoryRoom: Endo 5Procedure: Upper GI | | | endoscopyIndications: Generalized abdominal pain, Nausea | | | with vomitingProviders: TAL LUND MD | | | (Doctor), KEERTHI BERNARD RN (Nurse), | | | EREN SLATER (Corporate Learning Consultant)Referring MD: SYLVIA Kilpatrick | | | [...] | | | The Olympus [id number] Endoscope #[id number] | | | was introduced through the [...] 11:18 | | | | | Starting [facility] 04/07/19 at 1118, | | AM PDT | | | | | Until [facility] 04/07/19 at 1118 | | | | | | + +-------+ +--------+---+---+ +---+---+ | | | +---+---+ + +-------+ +-------+---+---+ | lidocaine viscous (XYLOCAINE | Given | 04/07/20 | 15 mL | | | | VISCOUS) 2 % mucosal solution | | 19 12:35 | | | | | Mouth/Throat, INTRAPROCEDURE PRN, | | PM PDT | | | | | Starting [facility] 04/07/19 at 1104, | | | [...]
--- OUTSIDE RECORDS SUMMARY | ~2020-03-23 | XMS | Encounter Summary ---
Demographics + + + | Address | [address] | | | [place] [address] | + + + | Home Phone [...] [place], [place] | | | | | [address] | | + + + + + | Ellie Vang | ECON | Unknown | | + + + + + Care Team Providers + +------+ + | Care Apparel Designer Name | Role | Phone | [...] | | | | | | [address] [place], [place] | | | | | | [address] | | | | | | [phone] | | | +--------+ + + + [...] | | 2019 | sherrill | | DOG RAISER [address] | | | | | | [place], [place] | | | | | | [address] | | | | | | [phone] | | | | | | | | +--------+ + + + + documented as of this encounter Visit Diagnoses Not on filedocumented in this encounter"
--- OUTSIDE RECORDS SUMMARY | ~2020-03-23 | XMS | Encounter Summary ---
Demographics + + + | Address | [address] | | | [place] [address] | + + + | Home Phone [...] [place], [place] | | | | | [address] | | + + + + + | Ellie Vang | ECON | Unknown | | + + + + + Care Team Providers + +------+ + | Care Poundmaster Name | Role | Phone | + +------+ + | Fadi Goodrich DO | PCP | | + +------+ + Encounter Details +--------+ + + + + | Date | Type | Department | Care Team | Description | +--------+ + + + + | 02/10/ | Telephone | Digestive Health | Hernandez Brian, | | | 2012 | | [place] [address] | MD [address] [facility] | | | | | [facility] | [facility] | | | | | for Health and | [place], [place] | | | | | [facility] [address] | [address] | | | | | [place], [place] | [phone] | | | | | [address] | | | | | | [phone] | | | +--------+ + + + [...] says that she had a CT @ [facility] which indicated her hernia was redeveloped. Pain scale at 8-9/10. Patient taking Dilaudid. Please call back at [phone] signed by Vince Paul at 02/10/2013 11:57 AM PDTdocumented in this encounter Plan of Treatment +--------+ + + + + | Date | Type | Specialty | Care Team | Description | +--------+ + + + + | 04/04/ | Telephone-S | Surgery | Orquidea Cristobal, | | | 2020 | sherrill | | DISTANCE EDUCATION COORDINATOR [address] | | | | | | [facility] [place] | | | | | | [address] | | | | | | [phone] | | | | | | | | +--------+ + + + + documented as of this encounter Visit Diagnoses Not on filedocumented in this encounter"
--- OUTSIDE RECORDS SUMMARY | ~2020-03-23 | XMS | Encounter Summary ---
Demographics + + + | Address | [address] | | | [place] [address] | + + + | Home Phone [...] [place], [place] | | | | | [address] | | + + + + + | Ellie Vang | ECON | Unknown | | + + + + + Care Team Providers + +------+ + | Care Fire Marshal Name | Role | Phone | + [...] | | 2020 | | [facility] | MD [address] | | | | | [address] | [place], [place] | | | | | [facility] | [address] | | | | | and [place], | [phone] | | | | | [place] [address] | | | | | | [facility] [place] | | | | | | [address] | | | | | | [phone] | | | +--------+ + + + [...] to send MyChart Response? pls call pt [phone] documented in this enc ounter Plan of Treatment +--------+ + + + + | Date | Type | Specialty | Care Team | Description | +--------+ + + + + | 04/04/ | Telephone-S | Surgery | Orquidea Cristobal, | | | 2020 | sherrill | | BELT WORKER [address] | | | | | | [place] | | | | | | [address] | | | | | | [phone] | | | | | | | | +--------+ + + + + documented as of this encounter Visit Diagnoses Not on filedocumented in this encounter"
--- OUTSIDE RECORDS SUMMARY | ~2020-03-23 | XMS | Encounter Summary ---
Demographics + + + | Address | [address] | | | [place] [address] | + + + | Home Phone [...] [place], [place] | | | | | [address] | | + + + + + | Ellie Vang | ECON | Unknown | | + + + + + Care Team Providers + +------+ + | Care Senior Firewall Engineer Name | Role | Phone | [...] (PHENTERMINE 37.5 mg | | | | [facility] at | [place], [place] | ); Refill Request | | | | [place] [address] | [address] | | | | | [facility] | [phone] | | | | | [facility] | | | | | | [place], [place] | | | | | | [address] | | | | | | [phone] | | | +--------+ + + + [...] do not yet have an appointment in [facility], route to the poolroom/poolhall manager of the discharging commercial loan collection officer. See discharge summary for i nformation~~~ elephone [...] Seen By Ordering Provider: Last Appointment in [place] [address] was on 12/25 11/12 at 3:35 pm with Randell Franks MD. Follow Up Plan: Next Appointment in [facility] is on 09/15/19 at 4:15 [...] | | 2019 | cheduled | | CARD DECORATOR [address] | | | | | | [place], [place] | | | | | | [address] | | | | | | [phone] | | | | | | | | +--------+ + + + + documented as of this encounter Visit Diagnoses Not on filedocumented in this encounter"
--- OUTSIDE RECORDS SUMMARY | ~2020-03-23 | XMS | Encounter Summary ---
Demographics + + + | Address | [address] | | | [place] [address] | + + + | Home Phone [...] [place], [place] | | | | | [address] | | + + + + + | Ellie Vang | ECON | Unknown | | + + + + + Care Team Providers + +------+ + | Care Medicaid Analyst Name | Role | Phone | [...] | HA Roldan, | | | with LIVESTOCK BRANDS INSPECTOR | | hypertension | [address] | [address]EMA JIANG | | | | | Right | [address] | [address] | | | | | heart | [place], [place] | [facility] | | | | | failure | [address] | [address] [facility] | | | | | ([facility]) Type | Phone: | [place] | | | | | 2 diabetes | [phone] | [address] | | | | | mellitus | Fax: | Phone: | | | | | without | [phone] | [phone] | | | | | complication | | Fax: | | | | | , with | | [phone] | | | | | long-term | | | | | | | current use | | | | | | | of insulin | | | | | | | ([facility]) | | | +--------+ + + + + + Encounter Details +--------+---------+ + + + | Date | Type | Department | Care Team | Description | +--------+---------+ + + + | 05/27/ | Office | Digestive Health | Tejas Cevallos, | History of Frandy-en-Y | | 2018 | Visit | Center at [facility] [address] | [address] | gastric bypass | | | | [facility] | [facility] [address] | (Primary Dx); | | | | for Health and | [place], [place] | 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, Building [address] | [address] | 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[place], [place]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) | | | | [address] | | | | | | [phone] | | | +--------+---------+ + + + [...] Follow-Up Patient referred by: Randell Franks MD [address] [place] [address] Documented time of visit: 2:36pm to 2:49 (13 minutes yyow-py-pzcj with patient) Surgery: Gastric Bypass Date of [...] Medications since surgery: oral - appt with seamer on the Testing blood glucose: 92 mg/dl [...] beef, cream of wheat, cream of mushroom, tristanian yogurt Fluid choices: water Supplementation: Flinstones, iron, [...] progression: Begin stage 4 according to [facility] diet guidelines -Provided written & verbal education/review [...] multivitamin & mineral (with iron) supplement, 2/day -4707-9739 mg calcium citrate with vitamin D/day (take in divided doses, not within 2 hour s of multivitamin or iron supplement) -500 mcg/day sublingual B12 supplement (or monthly injections) Continued to reinforce importance of mindful eating. Continue to increase physical activity. Follow up in 3 months or earlier as needed. Tejas Cevallos RD, LD Pager # [phone] signed by Tejas Cevallos RD at 05/27/2018 3:07 PM PDTdocument ed in this encounter Plan of Treatment +--------+ + + + + | Date | Type | Specialty | Care Team | Description | +--------+ + + + + | 04/04/ | Telephone-S | Surgery | Cristobal, [place], | | | 2020 | cheduled | | CUSTOMER SERVICE ANALYST [address] | | | | | | [place], [place] | | | | | | [address] | | | | | | [phone] | | | | | | | [...]
--- OUTSIDE RECORDS SUMMARY | ~2020-03-23 | XMS | Encounter Summary ---
Demographics + + + | Address | [address] | | | [place] [address] | + + + | Home Phone [...] [place], [place] | | | | | [address] | | + + + + + | Ellie Vang | ECON | Unknown | | + + + + + Care Team Providers + +------+ + | Care Informatics Scientist Name | Role | Phone | + +------+ + | Jorje Hill MD | PCP | | + +------+ + Encounter Details +--------+ + + + + | Date | Type | Department | Care Team | Description | +--------+ + + + + | 03/18/ | Transcribe | NKECHI alonso [facility] | Transcribe | | | 2019 | Orders | [facility] [address] | Encounter, Provider, | | | | | [address] [place] for | MD [address] | | | | | Health and Healing, | [place] [address] | | | | | [address] | | | | | | [place], [place] | | | | | | [address] | | | | | | [phone] | | | +--------+ + + + [...] | | 2019 | cheduled | | PRODUCTION EXPERT [address] | | | | | | [place], [place] | | | | | | [address] | | | | | | [phone] | | | | | | | | +--------+ + + + + documented as of this encounter Results EGD (04/07/2019 10:53 AM PDT) + + | Specimen | + + | | + + + + + | Narrative | Performed At | + + + | MRN: | [facility] | | [id number] Date: 04/07/2019Patient Name: Elzbieta Curtis #: | ENDOSCOPY | | [id number] of : 1975CSN: [id number] Type: | | | AmbulatoryRoom: Endo 5Procedure: Upper GI | | | endoscopyIndications: Generalized abdominal pain, Nausea | | | with vomitingProviders: TAL LUND MD | | | (Doctor), BERNADRO BERNARD RN (Nurse), | | | GENECREST SLATER (Hydraulic Dredge Operator)Referring MD: SYLVIA Kilpatrick | | | [...] | | | The Olympus [id number] Endoscope #[id number] | | | was introduced through the [...]
--- OUTSIDE RECORDS SUMMARY | ~2020-03-23 | XMS | Encounter Summary ---
Demographics + + + | Address | [address] | | | [place] [address] | + + + | Home Phone [...] [place], [place] | | | | | [address] | | + + + + + | Ellie Vang | ECON | Unknown | | + + + + + Care Team Providers + +------+ + | Care Scraper Burrer Name | Role | Phone | + +------+ + | Fadi Goodrich DO | PCP | | + +------+ + Encounter Details +--------+ + + + + | Date | Type | Department | Care Team | Description | +--------+ + + + + | 12/12/ | Emergency | [facility] Emergency | | | | 2014 - | | Department [address] | | | | | | [address] | | | | 05/20/ | | [facility] | | | | 2014 | | [place], [place] | | | | | | [address] | | | | | | [phone] | | | +--------+ + + + [...] Keerthi Clarke MD at 12/13/2014 12:17 [facility] - 12/13/2014 12:[address] from today and in September look the same. No e vidence of obstuction. No BM x 2 weeks per pt. Consult only. [facility] - 12/12/2014 11:58 PM PDTMorbidly obese, hernia repair at [facility] last January, CT at [facility] a month ago. Now c/o new [...] Surgery | Orquidea Crisotbal, | | | 2020 | sherrill | | CARPENTER SUPERVISOR [address] | | | | | | [place] | | | | | | [address] | | | | | | [phone] | | | | | | | | +--------+ + + + + documented as of this encounter Visit Diagnoses Not on filedocumented in this encounter"
--- OUTSIDE RECORDS SUMMARY | ~2020-03-23 | XMS | Encounter Summary ---
Demographics + + + | Address | [address] | | | [place] [address] | + + + | Home Phone [...] [place], [place] | | | | | [address] | | + + + + + | Ellie Vang | ECON | Unknown | | + + + + + Care Team Providers + +------+ + | Care Hat And Cap Opener Name | Role | Phone | [...] | | 2020 | sarahiduled | | LEAN MANAGER [address] | | | | | | [place], [place] | | | | | | [address] | | | | | | [phone] | | | | | | | | +--------+ + + + + documented as of this encounter Visit Diagnoses Not on filedocumented in this encounter"
--- OUTSIDE RECORDS SUMMARY | ~2020-03-23 | XMS | Encounter Summary ---
Demographics + + + | Address | [address] | | | [place] [address] | + + + | Home Phone [...] [place], [place] | | | | | [address] | | + + + + + | Ellie Vang | ECON | Unknown | | + + + + + Care Team Providers + +------+ + | Care Radiation Oncology Nurse Name | Role | Phone | [...] Diabetes & | Morbid | Kathy M, PSYCHOLOGICAL ASSISTANT | [address] | | | | Metabolism | obesity | [address] [address] | [address] | | | | | (HCC) | [address], | Loop | | | | | Procedures | [address] | Physician's | | | | | CONSULT TO | [facility] [place] | Pavilion | | | | | ENDO | [address] | Physician's | | | | | [address] | Phone: | Pavilion | | | | | [address] | [phone] | [place], [place] | | | | | | Fax: | [address] | | | | | | [phone] | Phone: | | | | | | | [phone] | | | | | | | Fax: | | | | | | | [phone] | +--------+--------+ + + + + Encounter [...] | | | [facility] | [place], [place] | ([facility]) (Primary Dx); | | | | [address] | [address] | Type 2 diabetes | | | | [address] | [phone] | mellitus ([facility]); AMARA | | | | Physician's Pavilion | | (obstructive sleep | | | | Physician's | | apnea); Morbid | | | | [facility] [place], | | obesity ([facility]); | | | | [place] [address] | | Edema; GERD | | | | [phone] | | (gastroesophageal | | | | [...] Goodrich DO Referring physician: Kathy Feldman, KALYAN [address] [place] [address] HPI: Dylan is a 38 y.o. female [...] 9 CREATININE PLASMA (LAB) 0.71 EGFR - MARSHALLESE >60 EGFR NON -MARSHALLESE >60 GLUCOSE, PLASMA (LAB) 113 (H) CALCIUM, [...] | | 2020 | sherrill | | HEALTH CLUB ATTENDANT [address] | | | | | | [place], [place] | | | | | | [address] | | | | | | [phone] | | | | | | | [...] +--------+ + + + | [facility] COLLECTION | Routin | 04/14/2013 | DM type 2 | | | CAPILLARY BLOOD | e | 11:08 AM | (diabetes mellitus, | | | SPECIMEN | | PDT | type 2) ([facility]) | | + +--------+ + [...] AMES | [address] | [place], [place] | | | [place]RAHAN [address]WN | [facility] | [address] | | | TESTS | | | [...]
--- OUTSIDE RECORDS SUMMARY | ~2020-03-23 | XMS | Encounter Summary ---
Demographics + + + | Address | [address] | | | [place] [address] | + + + | Home Phone [...] [place], [place] | | | | | [address] | | + + + + + | Ellie Vang | ECON | Unknown | | + + + + + Care Team Providers + +------+ + | Care Cone Examiner Name | Role | Phone | [...] floor | | | | | | [place], [place] | | | | | | [address] | | | +--------+ + + + [...] | | 2019 | sherrill | | INGREDIENT MIXER [address] | | | | | | [place], [place] | | | | | | [address] | | | | | | [phone] | | | | | | | | +--------+ + + + + documented as of this encounter Visit Diagnoses Not on filedocumented in this encounter"
--- OUTSIDE RECORDS SUMMARY | 2020-03-23 16:16 | XMS ---
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 No recent Security Events currently on file CRITERIA MET - Group Notification - - Has Care Guidelines - PDMP - - 2 Visits in 30 Days CARE PROVIDERS [facility] Community Health Worker 07/03/2019-Current PHONE: [phone] JONES DAVISON Dentist: [employer] 05/23/2019-Current PHONE: [phone] Rob Tilley Camera Person/Public Relations Account Executive 03/27/2018-Current PHONE: [phone] [facility] [place] Internal Medicine: Pulmonary Disease 08/23/2018-Current PHONE: Unknown Guidelines Source: [facility] Guidelines Date: 09/16/2019 Care Coordination: Receives mental health services with [facility].\T\nbsp; Please contact [facility] regarding mental health concerns. [facility] Office: , [place] Office: [phone].\T\nbsp; [facility] Crisis: [phone]. Care History Medical/Surgical 12/13/2019 [facility] - PATIENT HAD AN APT WITH DR DAVISON PCP ON 12/09/19 FOR FOLLOW UP TO ED VISIT. - NEXT APT SCHEDULED FOR PATIENT IS IN FEBRUARY 2020. 09/14/2019 [facility] - PATIENT HAS AN APT WITH DR WEBBER 09/14/19 FOR FOLLOW UP TO RECENT POSTOPERATIVE COMPLICATION. - HERNIA SURGERY WAS DONE ON 08/19/[address] TIWARI AT [facility]. 06/27/2019 [facility] - PATIENT [facility]ELF DISCHARGED FROM [facility]-PCP IS NOW DR DAVISON AT [facility]. E.DRenee VISIT COUNT (12 MO.) 2 [facility] and [facility] 14 [facility] H. TOTAL 16 NOTE: Visits indicate total known visits. ED/UCC VISIT TRACKING (12 MO.) 03/23/2020 16:14 [facility] [place] TYPE: Emergency COMPLAINT: - ABD PAIN/SWELLING 02/27/2020 15:27 [facility] [place] TYPE: Emergency COMPLAINT: - SOB DIAGNOSES: - Shortness of breath - Allergy status to analgesic agent status - Acute upper respiratory infection, unspecified - Migraine, unspecified, not intractable, without status migrai - Allergy status to other drugs, medicaments and biological sub - Contact with and (suspected) exposure to other viral communic - Other group home (current) drug therapy - Allergy status to penicillin - Anxiety disorder, unspecified [facility]19[facility]2019 09[facility] [place] [facility] COMPLAINT: - EYE PAIN NON INJURY DIAGNOSES: - Zoster ocular disease, 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 - Ocular pain, right eye - Migraine, unspecified, not intractable, without status migrai - Anxiety disorder, unspecified - Other group home (current) drug therapy - Allergy status to other drugs, medicaments and biological sub - Allergy status to penicillin 12/02/2019 12:02 [facility] [place] [facility] COMPLAINT: - STOMACH PAIN,BLOODY STOOL DIAGNOSES: - Anxiety disorder, unspecified - Allergy status to other drugs, medicaments and biological sub - Allergy status to other antibiotic agents status - Other group home (current) drug therapy - Hypokalemia - Constipation, unspecified - Unspecified abdominal pain - Migraine, unspecified, not intractable, without status migrai - longterm (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 - Allergy status to penicillin 11/13/2019 17:33 [facility] [place] TYPE: Emergency COMPLAINT: - MULTIPLE COMPLAINTS DIAGNOSES: - Viral infection, unspecified - Cough - Other group home (current) drug therapy - Anxiety disorder, unspecified - Allergy status to other antibiotic agents status - Allergy status to penicillin - Migraine, unspecified, not intractable, without status migrai 09/12/2019 17:58 [facility] [place] TYPE: Emergency COMPLAINT: - POST OP PAIN DIAGNOSES: - Allergy status to analgesic agent status - Unspecified abdominal pain - Allergy status to penicillin - Other technician terminal and repeater (current) drug therapy - Anxiety disorder, unspecified - Obesity, unspecified - Other postprocedural complications of skin and subcutaneous t - Allergy status to other drugs, medicaments and biological sub 09/08/2019 18:55 [facility] [place] TYPE: Emergency COMPLAINT: - DIFFICULTY BREATHING DIAGNOSES: - Headache - Other technician terminal and repeater (current) drug therapy - Personal history of nicotine dependence - Shortness of breath 09/02/2019 21:22 [facility] [place] TYPE: Emergency COMPLAINT: - ABDOMINAL PAIN 08/18/2019 13:47 [facility] TYPE: Emergency DIAGNOSES: 51006. [facility] [address]. Morbid (severe) obesity due to excess calories 04083. Ventral hernia without obstruction or gangrene 27501. Unspecified abdominal hernia with obstruction, without gangre 06/25/2019 18:23 [facility] [place] TYPE: Emergency COMPLAINT: - ABDOMINAL PAINY DIAGNOSES: - longterm (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 - Anxiety disorder, unspecified - Cellulitis of abdominal wall - Acute embolism and thrombosis of deep veins of right upper ex - Nicotine dependence, unspecified, uncomplicated - Migraine, unspecified, not intractable, without status migrai - Unspecified abdominal pain - Allergy status to other drugs, medicaments and biological sub - Other group home (current) drug therapy - Allergy status to penicillin - Obesity, unspecified 06/19/2019 06:34 [facility] [place] TYPE: Emergency COMPLAINT: - ABDOMINAL PAIN/VOMITING DIAGNOSES: - technician terminal and repeater (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 - Personal history [...] drugs, medicaments and biological sub - Other technician terminal and repeater (current) drug therapy 06/01/2019 13:10 [facility] [place] TYPE: Emergency COMPLAINT: - HEADACHE/VISION ISSUES DIAGNOSES: - Allergy status to penicillin - Anxiety disorder, unspecified - Obesity, unspecified - Migraine, unspecified, not intractable, without status migrai - Other group home (current) drug therapy - Allergy status to other drugs, medicaments and biological sub - longterm (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 - Headache - longterm (current) use of aspirin 05/23/2019 17:08 [facility] [place] TYPE: Emergency COMPLAINT: - BLOOD CLOT IN ARM DIAGNOSES: - Anxiety disorder, unspecified - Acute embolism and thrombosis of deep veins of right upper ex - Allergy status to penicillin - Other technician terminal and repeater (current) drug therapy - Pain in right arm - longterm (current) use of aspirin - Allergy status to other drugs, medicaments and biological sub 05/20/2019 10:19 [facility] [place] TYPE: Emergency COMPLAINT: - ABD PAIN, VOMITING DIAGNOSES: - Generalized abdominal pain - technician terminal and repeater (current) use of aspirin - Allergy status to other drugs, medicaments and biological sub - Unspecified abdominal pain - Personal history of transient ischemic attack (TIA), and cere - Anxiety disorder, unspecified - Other technician terminal and repeater (current) drug therapy - Other chronic pain - Allergy status to penicillin 05/13/2019 17:18 [facility] TYPE: Emergency DIAGNOSES: 40654. A303 [id number]. Bariatric surgery status 15305. Ventral hernia without obstruction or gangrene 59316. Nausea with vomiting, unspecified 24291. Unspecified abdominal pain 20304. Nonspecific mesenteric lymphadenitis 05/10/2019 13:06 [facility] [place] TYPE: Emergency COMPLAINT: - ABD PAIN DIAGNOSES: - Nausea with vomiting, unspecified - Allergy status to other drugs, medicaments and biological sub - Personal history of transient ischemic attack (TIA), and cere - Solitary pulmonary nodule - Other technician terminal and repeater (current) drug therapy - Anxiety disorder, unspecified - Allergy status to penicillin - Ventral hernia without obstruction or gangrene - technician terminal and repeater (current) use of aspirin - Unspecified abdominal pain - Diarrhea, unspecified INPATIENT VISIT TRACKING (12 MO.) 09/03/2019 02:24 [facility] [place] TYPE: Medical Surgical COMPLAINT: - POST-OP HEMATOMA DIAGNOSES: - Body mass index (BMI) 50-59.9 , adult - Personal history of pulmonary embolism - longterm (current) use of opiate analgesic - Other chronic pain - Allergy status to other drugs, medicaments and biological sub - Anxiety disorder, unspecified - Allergy status to other drugs, medicaments and biological sub - technician terminal and repeater (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 - Bipolar disorder, unspecified - Personal history of other venous thrombosis and embolism - Anxiety disorder, unspecified - Other chronic pain - Other technician terminal and repeater (current) drug therapy - Postprocedural hematoma of a digestive system organ or struct - Other group home (current) drug therapy - Personal history of other venous thrombosis and embolism - Bariatric surgery status - Essential (primary) hypertension - Personal history of transient ischemic attack (TIA), and cere - Obstructive sleep apnea (adult) (pediatric) - Personal history of pulmonary embolism - Migraine, unspecified, not intractable, without status migrai - Bipolar disorder, unspecified - technician terminal and repeater (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 - Acute posthemorrhagic [...] (severe) obesity due to excess calories - technician terminal and repeater (current) use of opiate analgesic - Bariatric surgery status - Hypokalemia - Hypokalemia 08/18/2019 13:47 [facility] TYPE: Surgery DIAGNOSES: . Unspecified abdominal hernia with obstruction, without gangre . Morbid (severe) obesity due to excess calories . Ventral hernia without obstruction or gangrene [email or web address]
[2020-03-23] MEDS ORDERED: PRAZOSIN HCL2 MG PO (16:36)
== END 2020-03-23 19:15 | disposition home or self-care (01) ==
LOC: ED 16:13
DX: M62.08 Separation of muscle (nontraumatic), other site (principal); E66.9 Obesity, unspecified; G43.909 Migraine, unspecified, not intractable, without status migrainosus; F41.9 Anxiety disorder, unspecified; Z88.0 Allergy status to penicillin; Z88.1 Allergy status to other antibiotic agents; Z88.8 Allergy status to other drugs, medicaments and biological substances; Z79.899 Other long term (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
CPT/HCPCS: 74177; 80053; 81001; 83690; 85025; 96361; 99284-25; J1170; J7030

== ENCOUNTER 2020-03-26 21:10 | Emergency (ER) | payer OTHER ==
[~2020-03-26] VITALS: Ht 147.3 cm; Wt 128.4 kg
--- OUTSIDE RECORDS SUMMARY | ~2020-03-26 | XMS | Encounter Summary ---
Demographics + + + | Address | [address] | | | [place] [address] | + + + | Home Phone [...] + + + | Author | [facility] | + + + | Organization | [facility] | + + + | Address | Unknown | + + + | Phone | Unavailable | + + + Support + + + + + | Name | Relationship | Address | Phone | + + + + + | Katalina Padilla | ECON | [address] | | | | | [place], [place] | | | | | [address] | | + + + + + | Ellie Vang | ECON | Unknown | | + + + + + Care Team Providers + +------+ + | Care Desk Operator Name | Role | Phone | + +------+ + | Kenyatta Cardenas MD | PCP | | + +------+ + Reason for Visit + +--------+ + | Reason | Onset | Comments | | | Date | | + +--------+ + | housing accomodation | 06/02/ | RPV approved | | | 2019 | | + +--------+ + Encounter Details +--------+ + + + + | Date | Type | Department | Care Team | Description | +--------+ + + + + | 06/02/ | Telephone | SOCIAL WORK | Anastacia Almaraz | housing accomodation | | 2019 | | AM[address]ULATORY [address] | (RPV approved) | | | | [address] | Lesly Gutiérrez [facility] | | | | | Mailcode: [facility] | [place] [address] | | | | | [place], [place] | | | | | | [address] | | | | | | [phone] | | | +--------+ + + + + Social History + + [...] + + documented as of this encounter Miscellaneous Notes Telephone Encounter - Anastacia Almaraz - 06/02/2019 5:07 PM PSTPatient meets all screening cr iteria for [place] [facility] (RPV) [facility] on-line screening intake completed and RPV eligibility effective date: 06/02/2019- 06/01/2020 Name of the adults (18 and over) screened: Patient only ADA/Service animal requirements indicated (please explain if yes): No Financial eligibility (full $50 payment or FA eligible): FA Payment source: Medicaid Initial RPV reservation dates requested: 06/23-06/24/2019 RPV reservation dates obtained: 06/23-06/24/2019 Patient will receive an e-mail confirmation and phone call from the [facility] Family Placement Co ordinator confirming the secured reservation. Patient will contact her Medicaid medical weems sportation broTUNDE william to coordinate her transportation to and from [facility] and [facility]. Anastacia Almaraz, Baffle Installer [phone] Office Nurse pager [phone] documented in this encounte r Plan of Treatment +--------+ + + + + | Date | Type | Specialty | Care Team | Description | +--------+ + + + + | 04/04/ | Telephone-S | Surgery | Orquidea Cristobal, | | | 2019 | sherrill | | SODA DRIER FEEDER [address] | | | | | | [place], [place] | | | | | | [address] | | | | | | [phone] | | | | | | | | +--------+ + + + + documented as of this encounter Visit Diagnoses Not on filedocumented in this encounter"
--- OUTSIDE RECORDS SUMMARY | ~2020-03-26 | XMS | Encounter Summary ---
Demographics + + + | Address | [address] | | | [place] [address] | + + + | Home Phone | | + + + | Preferred Language | Unknown | + + + | Marital Status | Single | + + + | Mandaen Affiliation | NON | + + + | Race | White | + + + | Ethnic Group | Not or | + + + Author + + + | Author | [facility] | + + + | Organization | [facility] | + + + | Address | Unknown | + + + | Phone | Unavailable | + + + Support + + + + + | Name | Relationship | Address | Phone | + + + + + | Katalina Padilla | ECON | [address] | | | | | [place], [place] | | | | | [address] | | + + + + + | Ellie Vang | ECON | Unknown | | + + + + + Care Team Providers + +------+ + | Care Cable Television Technician Name | Role | Phone | + +------+ + | Fadi Goodrich DO | PCP | | + +------+ + Encounter Details +--------+ + + + + | Date | Type | Department | Care Team | Description | +--------+ + + + + | 10/27/ | Telephone | [facility] | Leslie Mistry, | | | 2017 | | [address] | PhD [address] [facility] | | | | | [facility] | [facility] | | | | | and Healing, | [place], [place] | | | | | [facility] | [address] | | | | | Floor [place], [place] | [phone] | | | | | [address] | | | | | | [phone] | | | +--------+ + + + [...] this encounter Miscellaneous Notes Telephone Encounter - Leslie Mistry, PhD - 10/27/2017 10:41 AM PDTBARIATRIC RE-EVALUATI ON (INCLUDING DIET AND EXERCISE COUNSELING) PHONE CALL Name: Elzbieta Cristina : 1975 Medical Record: [id number] Age: 42 y.o. Weight on 10/02/17, per patient report: 305 lbs Weight on 09/11/17: 389, BMI 73.54 Initial Consultation Date: 10/02/2017 Re-evaluated patient's candidacy for bariatric surgery. Reviewed recommendations from initi al visit: 1. Eat more regularly and eat healthier foods --> Completed, reported the following diet: - 8:30 AM (30 minutes after waking) has wolof yogurt, fruit, and some granola - 11:30 breaded chicken and fresh fruit 3 PM wolof yogurt, gustavo crackers, or raw vegetables 6 PM chicken and asparagus (protein plus vegetable) Evening: healthy snack Discussed healthy substitutes to further improve her diet, see recommendations below. 2. Watch less TV and be more active --> Completed, slowly started walking daily and is up t o 10 minutes/day. She plans to increase by 5 minutes weekly. Patient also continues to do he r PT exercises daily. 3. Start meeting with a mental health therapist regularly to address mood --> Patient has a n initial appointment with a therapist this . Reiterated the importance of patient h aving healthy coping skills to manage emotional eating triggered by depression and dee dee. Jesus Alberto uribe agreed and also noted that she has not had any problems with emotional eating in the l ast 6 months or so. 4. Separate foods and liquids --> Completed 5. Limit diet iced tea to no more than one 16-ounce bottle/day --> Completed, has one bottl e per day at most. 6. Maintain her elimination of soda that she started last week. --> Completed Diagnosis: 1. Morbid obesity 2. Bipolar Disorder 3. BMI 60-69.9 4. Unspecified Anxiety Disorder RECOMMENDATIONS: Elzbieta Cristina is not currently an appropriate candidate for bariatric surgery, but she h as the potential to become a good candidate once she makes a few additional improvements to her diet. Patient will follow-up with me in a week and a half to report on her progress. 1. Eat more regularly and eat healthier foods. Will eat less granola, eat grilled instead o f breaded chicken, and have raw vegetables instead of gustavo crackers. 2. Start meeting with a mental health therapist regularly to address mood 3. Continue walking more, aiming to slowly increase to 5x/week for 30 minutes Total time I spent was approximately 30 minutes on the phone. Leslie Mistry, PhD Clinical Psychologist [facility] [address] [facility], [address] [place] [address] [email or web address] signed by Leslie Mistry, PhD at 10/27/2017 10:59 AM DIETERdocamille soler in this encounter Plan of Treatment +--------+ + + + + | Date | Type | Specialty | Care Team | Description | +--------+ + + + + | 04/04/ | Telephone-S | Surgery | Orquidea Cristobal, | | | 2019 | sherrill | | MARKETING TECHNOLOGIST [address] | | | | | | [place], [place] | | | | | | [address] | | | | | | [phone] | | | | | | | | +--------+ + + + + documented as of this encounter Visit Diagnoses Not on filedocumented in this encounter"
--- OUTSIDE RECORDS SUMMARY | ~2020-03-26 | XMS | Encounter Summary ---
Demographics + + + | Address | [address] | | | [place] [address] | + + + | Home Phone | | + + + | Preferred Language | Unknown | + + + | Marital Status | Single | + + + | Islam Affiliation | NON | + + + [...] + | Katalina Padilla | ECON | [address] | | | | | [place], [place] | | | | | [address] | | + + + + + | Ellie Vang | ECON | Unknown | | + + + + + Care Team Providers + +------+ + | Care Rocket Propellant Plant Supervisor Name | Role | Phone | + +------+ + | Fadi Goodrich DO | PCP | | + +------+ + Encounter Details +--------+ + + + + | Date | Type | Department | Care Team | Description | +--------+ + + + + | 02/09/ | Abstract | [facility] | Clinic, Surgery | | | 2016 | | [place] [address] [address] | | | | | [address] [facility] | | | | | | for Health and | | | | | | [facility], [facility] [address] | | | | | | [place], [place] | | | | | | [address] | | | | | | [phone] | | | +--------+ + + + [...] | | 2019 | sherrill | | OFFICE PROFESSIONAL [address] | | | | | | [place], [place] | | | | | | [address] | | | | | | [phone] | | | | | | | | +--------+ + + + + documented as of this encounter Visit Diagnoses Not on filedocumented in this encounter"
--- OUTSIDE RECORDS SUMMARY | ~2020-03-26 | XMS | Encounter Summary ---
Demographics + + + | Address | [address] | | | [place] [address] | + + + | Home Phone [...] + + + | Author | [facility] | + + + | Organization | [facility] | + + + | Address | Unknown | + + + | Phone | Unavailable | + + + Support + + + + + | Name | Relationship | Address | Phone | + + + + + | Katalina Padilla | ECON | [address] | | | | | [place], [place] | | | | | [address] | | + + + + + | Ellie Vang | ECON | Unknown | | + + + + + Care Team Providers + +------+ + | Care Wire Frame Dipper Name | Role | Phone | + +------+ + | Fadi Goodrich DO | PCP | | + +------+ + Encounter Details +--------+ + + + + | Date | Type | Department | Care Team | Description | +--------+ + + + + | 06/09/ | Abstract | Cardiology | Randell Franks, | | | 2015 | | Preventive at [facility] | MD [address] | | | | | [address] | [place], [place] | | | | | [facility] | [address] | | | | | and [place], | [phone] | | | | | [address] | | | | | | [facility] [place] | | | | | | [address] | | | | | | [phone] | | | +--------+ + + + [...] Orquidea Cristobal, | | | 2020 | cheduhipolito | | FILM TECHNICIAN [address] | | | | | | [place], [place] | | | | | | [address] | | | | | | [phone] | | | | | | | | +--------+ + + + + documented as of this encounter Visit Diagnoses Not on filedocumented in this encounter"
--- OUTSIDE RECORDS SUMMARY | ~2020-03-26 | XMS | Encounter Summary ---
Demographics + + + | Address | [address] | | | [place] [address] | + + + | Home Phone | | + + + | Preferred Language | Unknown | + + + | Marital Status | Single | + + + | Latter-Day Affiliation | NON | + + + [...] + | Katalina Padilla | ECON | [address] | | | | | [place], [place] | | | | | [address] | | + + + + + | Ellie Vang | ECON | Unknown | | + + + + + Care Team Providers + +------+ + | Care Adjunct Psychology Faculty Member Name | Role | Phone | + [...] Medical Records | | 2018 | | Center [address] | MD [address] | Review | | | | Ave Mailcode: CH4S | [place], [place] | | | | | [facility] | [address] | | | | | and [place], | [phone] | | | | | [place] [address] | | | | | | Floor [place], [place] | | | | | | [address] | | | | | | [phone] | | | +--------+ + + + [...] | | 2020 | sherrill | | PULL UP HAND [address] | | | | | | [place] | | | | | | [address] | | | | | | [phone] | | | | | | | | +--------+ + + + + documented as of this encounter Visit Diagnoses Not on filedocumented in this encounter"
--- OUTSIDE RECORDS SUMMARY | ~2020-03-26 | XMS | Encounter Summary ---
Demographics + + + | Address | [address] | | | [place] [address] | + + + | Home Phone [...] + | Katalina Padilla | ECON | [address] | | | | | [place], [place] | | | | | [address] | | + + + + + | Ellie Vang | ECON | Unknown | | + + + + + Care Team Providers + +------+ + | Care Restaurant Assistant Manager Name | Role | Phone | [...] | | | | | | [place], [place] | | | | | | [address] | | | | | | [phone] | | | +--------+ + + + [...] | | 2019 | sherrill | | CANE CUTTER [address] | | | | | | [place], [place] | | | | | | [address] | | | | | | [phone] | | | | | | | | +--------+ + + + + documented as of this encounter Visit Diagnoses Not on filedocumented in this encounter"
--- OUTSIDE RECORDS SUMMARY | ~2020-03-26 | XMS | Encounter Summary ---
Demographics + + + | Address | [address] | | | [place] [address] | + + + | Home Phone [...] Author + + + | Author | [facility] | + + + | Organization | [facility] | + + + | Address | Unknown | + + + | Phone | Unavailable | + + + Support + + + + + | Name | Relationship | Address | Phone | + + + + + | Katalina Padilla | ECON | [address] | | | | | [place], [place] | | | | | [address] | | + + + + + | Ellie Vang | ECON | Unknown | | + + + + + Care Team Providers + +------+ + | Care Refrigerator Glazier Name | Role | Phone | + +------+ + | Fadi Goodrich DO | PCP | | + +------+ + Encounter Details +--------+ + + + + | Date | Type | Department | Care Team | Description | +--------+ + + + + | 07/19/ | Abstract | Digestive Health | Kathy Feldman, | | | 2012 | | [place] [address] [address] | BEATER MACHINE OPERATOR [address] | | | | | [address] [facility] | [facility] [address] | | | | | for Health and | [place], [place] | | | | | [facility] | [address] | | | | | [place], [place] | [phone] | | | | | [address] | | | | | | [phone] | | | +--------+ + + + [...] | | 2019 | sherrill | | MANAGER STUDY [address] | | | | | | [place], [place] | | | | | | [address] | | | | | | [phone] | | | | | | | | +--------+ + + + + documented as of this encounter Visit Diagnoses Not on filedocumented in this encounter"
--- OUTSIDE RECORDS SUMMARY | ~2020-03-26 | XMS | Encounter Summary ---
Demographics + + + | Address | [address] | | | [place] [address] | + + + | Home Phone | | + + + | Preferred Language | Unknown | + + + | Marital Status | Single | + + + | Christian Affiliation | NON | + + + | Race | White | + + + | Ethnic Group | Not or | + + + Author + + + | Author | [facility] | + + + | Organization | [facility] | + + + | Address | Unknown | + + + | Phone | Unavailable | + + + Support + + + + + | Name | Relationship | Address | Phone | + + + + + | Katalina Padilla | ECON | [address] | | | | | [place], [place] | | | | | [address] | | + + + + + | Ellie Vang | ECON | Unknown | | + + + + + Care Team Providers + +------+ + | Care Mainspring Winder Name | Role | Phone | + +------+ + | Fadi Goodrich DO | PCP | | + +------+ + Encounter Details +--------+------+ + + + | Date | Type | Department | Care Team | Description | +--------+------+ + + + | 12/05/ | Lab | Laboratory at [facility] | | Type 2 diabetes | | 2013 | | [address] | | mellitus (HCC) | | | | [facility] | | | | | and Healing, | | | | | | [address] | | | | | | [place], [place] | | | | | | [address] | | | | | | [phone] | | | +--------+------+ + + + [...] | | 2019 | sherrill | | NIGHT WAREHOUSE MANAGER [address] | | | | | | [place], [place] | | | | | | [address] | | | | | | [phone] | | | | | | | [...] | + + + + + | [facility] | [address] | [place] [address] | | | SERVICES, SPECIAL | PARK [...]
--- OUTSIDE RECORDS SUMMARY | ~2020-03-26 | XMS | Encounter Summary ---
Demographics + + + | Address | [address] | | | [place] [address] | + + + | Home Phone | | + + + | Preferred Language | Unknown | + + + | Marital Status | Single | + + + | Buddhist Affiliation | NON | + + + | Race | White | + + + | Ethnic Group | Not or | + + + Author + + + | Author | [facility] | + + + | Organization | [facility] | + + + | Address | Unknown | + + + | Phone | Unavailable | + + + Support + + + + + | Name | Relationship | Address | Phone | + + + + + | Katalina Padilla | ECON | [address] | | | | | [place], [place] | | | | | [address] | | + + + + + | Ellie Vang | ECON | Unknown | | + + + + + Care Team Providers + +------+ + | Care Truck Driving Name | Role | Phone | + [...] | Closed | | Trauma Center | | Emergency | Tra Emerg | | | | | | Dept Hrc | Gen Surg Ppv | | | | | | [address] | [address] | | | | | | [address] | [address] | | | | | | [address] [place] | Physicians | | | | | | [facility] | [place], [facility] | | | | | | [place], [place] | Floor | | | | | | [address] | [place], [place] | | | | | | Phone: | [address] | | | | | | [phone] | Phone: | | | | | | | [phone] | | | | | | | Fax: | | | | | | | [phone] | +--------+--------+ + + + + Encounter Details +--------+---------+ + + + | Date | Type | Department | Care Team | Description | +--------+---------+ + + + | 03/06/ | Office | Trauma Emergency | Pradip Starr MD | Cholecystitis | | 2014 | Visit | General Surgery at | [address] | (Primary Dx) | | | | [facility] [address] [place], | | | | | [address] | [place] [address] | | | | | Physicians [facility], | [phone] | | | | | 2nd Floor | | | | | | [place], [place] | | | | | | [address] | | | | | | [phone] | | | +--------+---------+ + + + [...] + + + | Blood Pressure | 139/83 | 03/06/2014 1:01 PM | | | | | PDT | | + + + + + | Pulse | 125 | 03/06/2014 1:01 PM | | | | | PDT | | + + + + + | Temperature | 36.6 C (97.9 F) | 03/06/2014 1:01 PM | | | | | PDT | | + + + + + | Respiratory Rate | - | - | | + + + + + | Oxygen Saturation | 99% | 03/06/2014 1:01 PM | | | | | PDT | | + + + + + | Inhaled Oxygen | - | - | | | Concentration | | | | + + + + + | Weight | 185.7 kg (409 lb 4.8 | 03/06/2014 1:01 PM | | | | oz) | PDT | | + + + + + | Height | - | - | | + + + + + | Body Mass Index | 77.34 | 03/06/2014 9:42 AM | | | | | PDT | | + + + + + documented in this encounter Progress Notes Axel Gonzales MD - 03/06/2014 1:15 [facility] Attending: Tam Starr MD Author: Axel Gonzales MD Date: 03/06/2014 ID: Elzbieta Crisitna is a 39 y.o. female with acute cholecystitis s/p laparoscopic cholecystect mary PROCEDURES: 02/07/14 - Laparoscopic cholecystectomy with intra-operative cholangiogram S: Patient is 4 weeks sp/ cholecystectomy, reports that was doing well the first week at home but then developed worsening incisional pain, nausea, and non-bloody non-bilious vomiting. She describes the pain as a "deep" pain, worse after vomiting but constantly there. She aure t to see her PCP who "said I was fine and I should just wait until I follow up with the surg eons". Patient reports that her WBC count was "up" but doesn't remember how high. She mitul es fevers but has had intermittent chills. Reports passing gas and having regular bowel mov ements; denies acolic stool. O: Vitals: Wt 185.657 kg (409 lb 4.8 oz), BP 139/83, Pulse 125, Temperature 36.6 C (97.9 F ), Temperature source Oral, SpO2 99%, BMI 77.38 kg/(m^2). General: AAOx3, appears uncomfortable, diaphoretic HEENT: MMM, neck supple Cardiovascular: RRR, tachycardic Chest/Back: Unlabored, breathing comfortably on room air Abdomen: Morbidly obese, soft, incisions healing well, +incisional tenderness to palpation, no erythema, induration, or herniation noted around her incisions Extremities: warm and well perfused Labs/Cultures/Pathology: No new labs Imaging/Diagnostic Studies: No new imaging A/P: Elzbieta Cristina is a 39 y.o. female with acute cholecystitis s/p laparoscopic cholecystect mary on 02/07/14. Post-operative course complicated by incisional pain, nausea, and vomiting starting 1 week after discharge. Clinically she is tachycardic (however she was always tach y in the 110's-120's during her admission) but is afebrile and non-toxic appearing today. H er increased incisional pain is likely due to her vomiting episodes, no S/S of a surgical si te infection at this time. It is possible that she may have a small bile leak, however it w ould have to be a slow leak since she is not complaining of acolic stools. We will draw lab s today and order a HIDA scan to be done in [place] to verify that she does not have a pos t-operative surgical complication. We will call her with the results of her labs and imagin g. If these all come back normal she will need to follow up with her PCP to address her elisa sea/vomiting. - CBC and LFT's today - HIDA scan ordered, to be done in [place] - Will call patient once results are back. If normal, no need for follow up with EGS. The patient was seen and examined with Dr. Starr who agrees with the above assessment and janina Gonzales MD PGY-2 General Surgery Resident Department of General Surgery Pager: [phone] I saw and evaluated the patient. I agree with the findings and the plan of care as dequan han in the resident s note. PRADIP STARR MD TRAUMA EMERGENCY GENERAL SURGERY AT [facility] [address] Mailcode: [id number] [place] [address] documented in this encoun ter Plan of Treatment +--------+ + + + + | Date | Type | Specialty | Care Team | Description | +--------+ + + + + | 04/04/ | Telephone-S | Surgery | Orquidea Cristobal, | | | 2019 | sher[place] | | GAS STATION CLERK [address] | | | | | | [place], [place] | | | | | | [address] | | | | | | [phone] | | | | | | | | +--------+ + + + + documented as of this encounter Results LIVER SET (AST,ALT,BILI TOTAL,BILI DIRECT,ALK PHOS,ALB,PROT TOTAL) [...] | + + + + + | [facility] | [address] | [place] [address] | | | SERVICES, CORE | [address] | | | + + + + + documented in this encounter Visit Diagnoses + + | Diagnosis | + + | Cholecystitis - Primary Cholecystitis, unspecified | + + documented in this encounter
--- OUTSIDE RECORDS SUMMARY | ~2020-03-26 | XMS | Encounter Summary ---
Demographics + + + | Address | [address] | | | [place] [address] | + + + | Home Phone [...] + | Katalina Padilla | ECON | [address] | | | | | [place], [place] | | | | | [address] | | + + + + + | Ellie Vang | ECON | Unknown | | + + + + + Care Team Providers + +------+ + | Care Counter Professional Name | Role | Phone | + +------+ + | Fadi Goodrich DO | PCP | | + +------+ + Reason for Visit + + + | Reason | Comments | + + + | Outside Records | | | Received | | + + + Encounter Details +--------+ + + + + | Date | Type | Department | Care Team | Description | +--------+ + + + + | 04/30/ | Abstract | Digestive Health | Ion Pandey, | Outside Records | | 2018 | | Center at [address] | MD [address] | Received | | | | [address] | [place], [place] | | | | | [facility] and | [address] | | | | | [facility] | [phone] | | | | | [place], [place] | | | | | | [address] | | | | | | [phone] | | | +--------+ + + + [...] Orquidea Cristobal, | | | 2020 | chesteve | | WASTE MANAGEMENT ENGINEER [address] | | | | | | [place], [place] | | | | | | [address] | | | | | | [phone] | | | | | | | | +--------+ + + + + documented as of this encounter Visit Diagnoses Not on filedocumented in this encounter"
--- OUTSIDE RECORDS SUMMARY | ~2020-03-26 | XMS | Encounter Summary ---
Demographics + + + | Address | [address] | | | [place] [address] | + + + | Home Phone [...] [place], [place] | | | | | [address] | | + + + + + | Ellie Vang | ECON | Unknown | | + + + + + Care Team Providers + +------+ + | Care Blogs Manager Name | Role | Phone | [...] Orquidea Cristobal, | | | 2020 | sarahiduled | | FAMILY ADVOCATE [address] | | | | | | [place], [place] | | | | | | [address] | | | | | | [phone] | | | | | | | | +--------+ + + + + documented as of this encounter Visit Diagnoses Not on filedocumented in this encounter"
--- OUTSIDE RECORDS SUMMARY | ~2020-03-26 | XMS | Encounter Summary ---
Demographics + + + | Address | [address] | | | [place] [address] | + + + | Home Phone [...] + | Katalina Padilla | ECON | [address] | | | | | [place], [place] | | | | | [address] | | + + + + + | Ellie Vang | ECON | Unknown | | + + + + + Care Team Providers + +------+ + | Care Adolescent Counselor Name | Role | Phone | + +------+ + | Jorje Hill MD | PCP | | + +------+ + Encounter Details +--------+ + + + + | Date | Type | Department | Care Team | Description | +--------+ + + + + | 03/01/ | Pharmacy | Outpatient Retail | | | | 2018 | Visit | [facility] | | | | | | [address] | | | | | | [place], [place] | | | | | | [address] | | | | | | [phone] | | | +--------+ + + + [...] | | 2019 | sherrill | | SPECIAL EDUCATION EDUCATIONAL ASSISTANT [address] | | | | | | [place], [place] | | | | | | [address] | | | | | | [phone] | | | | | | | | +--------+ + + + + documented as of this encounter Visit Diagnoses Not on filedocumented in this encounter"
--- OUTSIDE RECORDS SUMMARY | ~2020-03-26 | XMS | Encounter Summary ---
Demographics + + + | Address | [address] | | | [place] [address] | + + + | Home Phone [...] + | Katalina Padilla | ECON | [address] | | | | | [place], [place] | | | | | [address] | | + + + + + | Ellie aVng | ECON | Unknown | | + + + + + Care Team Providers + +------+ + | Care Crayon Sawyer Name | Role | Phone | + +------+ + | Fadi Goodrich DO | PCP | | + +------+ + Reason for Visit + +--------+ + | Reason | Onset | Comments | | | Date | | + +--------+ + | Refill Request | 06/15/ | | | | 2017 | | + +--------+ + Encounter Details +--------+ + + + + | Date | Type | Department | Care Team | Description | +--------+ + + + + | 06/15/ | Telephone | Cardiology | Randell Franks, | Refill Request | | 2017 | | Preventive at [facility] | MD [address] | | | | | [address] | [place], [place] | | | | | [facility] | [address] | | | | | and [address], | [phone] | | | | | [address] | | | | | | [place], [place] | | | | | | [address] | | | | | | [phone] | | | +--------+ + + + [...] Telephone Encounter - Kate Meraz RN - 06/16/2017 12:18 PM PST Called in refill to pharmacy. I called and notified pt. Disp Refills Start End phentermine 37.5 mg oral tablet 90 tablet 1 06/12/2017 Sig: Take 1 tablet by mouth once daily in the morning Administer before breakfast. Class: Requires Phone In Route: oral Order: [id number] elephone Encounter - Ellie Dumont - 06/15/2017 3:14 PM PSTPharmacy Preference: [facility] [place] - [address] Provider: Dr. Franks Medication phentermine 37.5 mg oral tablet How many days' worth of medication does patient have? Patient is out of medication If less than 2 days on hand, route as HIGH PRIORITY. Best number to reach patient today: [phone] ~~~ROUTE TO [employer] MED REFILL ~~~ documented in this encounter Plan of Treatment +--------+ + + + + | Date | Type | Specialty | Care Team | Description | +--------+ + + + + | 04/04/ | Telephone-S | Surgery | Orquidea Cristobal, | | | 2019 | sherrill | | CONGRESSIONAL REPRESENTATIVE [address] | | | | | | [place], [place] | | | | | | [address] | | | | | | [phone] | | | | | | | | +--------+ + + + + documented as of this encounter Visit Diagnoses Not on filedocumented in this encounter"
--- OUTSIDE RECORDS SUMMARY | ~2020-03-26 | XMS | Clinical Summary ---
Demographics + + + | Address | [address] | | | [place] [address] | + + + | Home Phone [...] Author + + + | Author | [facility] | + + + | Organization | [facility] | + + [...] [place], [place] | | | | | [address] | | + + + + + | Ellie Vang | ECON | Unknown | | + + + + + Care Team Providers + +------+ + | Care Pockets And Pieces Necktie Operator Name | Role | Phone | + +------+ + | Jorje Hill MD | PCP | | + +------+ + Source Comments KALEYORIN is fully live on both EpicCare Ambulatory and EpicCare InPatient.[facility] Allergies + + + + + + | Active Allergy | Reactions | Severity | Noted | Comments | | | | | Date | | + + + + + + | Amoxicillin | Hives | Medium | 05/13/19 | | | | | | 93 | | + + + + + + | Diphenhydramine Hcl | Hives, Throat | High | 10/08/19 | | | | Swelling / Closing | | 13 | | + + + + + + | Ibuprofen | Bleeding | | 08/19/19 | No PO NSAIDs d/t | | | | | 20 | gastric bypass | + + + + + + | Bromocriptine | Unknown | | 04/14/20 | Blood clots | | | | | 13 | | + + + + + + | Penicillins | Hives | | 05/13/20 | | | | | | 19 | | + + + + + + | Ondansetron Hcl (Pf) | Hives | | 04/07/20 | | | | | | 19 [...] 0 | | | Activ | | 400 mg oral tablet | two times daily. | | | | | e | + + + +---------+------+------+-------+ | CALCIUM | Take 2 tablets by | | 0 | | | Activ | | [id number] | mouth two times | | | | | e | | IS ORAL | daily. | | | | | | + + + +---------+------+------+-------+ | atenolol 50 mg | Take 50 mg by mouth | | 0 | 11/1 | | Activ | | oral tablet | once daily at | | | 7/20 | | e | | | bedtime. | | | 17 | | | + + + +---------+------+------+-------+ | spironolactone 50 | Take 50 mg by mouth | | 0 | | | Activ | | mg oral tablet | once daily. | | | | | e | + + + +---------+------+------+-------+ | docusate sodium | Take 200 mg by mouth | | 0 | | | Activ | | (STOOL SOFTENER) 100 | two times daily. | | | | | e | | mg oral capsule | | | | | | | + + + +---------+------+------+-------+ | PARoxetine 40 mg | Take 40 mg by mouth | | 0 | | | Activ | | oral tablet | once daily at | | | | | e | | | bedtime. | | | | | | + + + +---------+------+------+-------+ | ergocalciferol | Take 1 capsule by | | 0 | | | Activ | | (VITAMIN D2) 50,000 | mouth every seven | | | 04/15 | | e | | unit oral capsule | days. | | | 18 | | | + + + +---------+------+------+-------+ +---+ + | | Additional | | | InformationPatient | | | taking differently: | | | 50,000 Units oral | | | EVERY THU, Reason: | | | See Comments, | | | Reported on | | | 05/14/2019 2:10 AM | +---+ + + + + +---+------+---+-------+ | lurasidone | Take 40 mg by mouth | | 0 | | | Activ | | (LATUDA) 20 mg oral | once daily at | | | | | e | | tablet | bedtime. | | | | | | + + + +---+------+---+-------+ | pramipexole 0.125 | Take 0.25 mg by | | 0 | | | Activ | | mg oral tablet | mouth once daily at | | | | | e | | | bedtime. | | | | | | + + + +---+------+---+-------+ | potassium chloride | Take 40 mEq by mouth | | 0 | | | Activ | | 20 mEq oral packet | two times daily. | | | | | e | + + + +---+------+---+-------+ | ascorbic acid | Take 1 tablet by | 90 | 1 | 03/2 | | Activ | | (vitamin C) (VITAMIN | mouth once daily. | tablet | | 6/20 | | e | | C) 500 mg oral | | | | 19 | | | | tablet | | | | | | | + + + +---+------+---+-------+ | Ferrous Gluconate | Take 1 tablet by | 90 | 1 | 03/2 | | Activ | | 324 mg total salt | mouth once daily. | tablet | | 01/13 | | e | | (36 mg elemental | | | | 19 | | | | iron) oral tablet | | | | | | | + + + +---+------+---+-------+ | ALPRAZolam 1 mg | Take 1 mg by mouth | | 0 | | | Activ | | oral tablet | three times daily as | | | | | e | | | needed. | | | | | | + + + +---+------+---+-------+ | multivitamin oral | Take 1 tablet by | | 0 | | | Activ | | tablet | mouth once daily. | | | | | e | + + + +---+------+---+-------+ | cyanocobalamin | Take 1,000 mcg by | | 0 | | | Activ | | 1,000 mcg oral | mouth once daily. | | | | | e | | tablet | | | | | | | + + + +---+------+---+-------+ | metoclopramide HCl | Take 10 mg by mouth | | 0 | | | Activ | | 10 mg oral tablet | every six hours as | | | | | e | | | needed for | | | | | | | | nausea/vomiting. | | | | | | + + + +---+------+---+-------+ | warfarin 5 mg oral | Take 10 mg by mouth | | 0 | 10/2 | | Activ | | tablet | once daily. | | | 04/15 | | e | | | | | | 19 | | | + + + +---+------+---+-------+ | rizatriptan | Take 5 mg by mouth | | 0 | | | Activ | | (MAXALT) 5 mg oral | as needed. May | | | | | e | | tablet | repeat in 2 hours as | | | | | | | | needed (Max: 30 mg | | | | | | | | per 24 hour period). | | | | | | + + + +---+------+---+-------+ | loperamide 2 mg | Take 2 mg by mouth | | 0 | | | Activ | | oral capsule | four times daily as | | | | | e | | | needed for diarrhea. | | | | | | + + + +---+------+---+-------+ | menthol/zinc oxide | Apply to infected | | 0 | | | Activ | | (GOLD RICHARD | area two times | | | | | e | | MEDICATED TOP) | daily. | | | | | | + + + +---+------+---+-------+ | thyroid (MASTER CARPENTER | Take 30 mg by mouth | | 0 | | | Activ | | THYROID) 30 mg oral | once daily at | | | | | e | | tablet tab | bedtime. | | | | | | + + + +---+------+---+-------+ | chlorproMAZINE 25 | Take 50 mg by mouth | | 0 | | | Activ | | mg oral tablet | once daily at | | | | | e | | | bedtime. | | | | | | + + + +---+------+---+-------+ | INTRAUTERINE | by intrauterine | | 0 | | | Activ | | DEVICE (IUD) UTRN | route. | | | | | e | + + + +---+------+---+-------+ | polyethylene | Mix 1-2 packets and | | 0 | 01/2 | | Activ | | glycol 17 gram oral | take orally once | | | 8/20 | | e | | powder in packet | daily as needed. | | | 20 | | | + + + +---+------+---+-------+ | lidocaine 5 % | Apply 1 patch to | 8 patch | 0 | 01/2 | | Activ | | topical adhesive | skin every | | | 8/20 | | e | | patch,medicated | twenty-four hours. | | | 20 | | | | | Apply patch [...] | period. | | | | | | + + + +---+------+---+-------+ | acetaminophen 500 | Take 2 tablets by | | 0 | 01/2 | | Activ | | mg oral tablet | mouth every six | | | 8/20 | | e | | | hours. | | | 20 | | | + + + +---+------+---+-------+ | HYDROmorphone | Take 1 tablet by | 10 | 0 | 01/3 | | Activ | | (DILAUDID) 2 mg oral | mouth every six | tablet | | 1/20 | | e | | tablet | hours as needed for | | | 20 | | | | | severe pain. | | | | | | + + + +---+------+---+-------+ | enoxaparin 40 | enoxaparin 40 mg/0.4 | | 0 | | | Activ | | mg/0.4 mL | mL subcutaneous | | | | | e | | subcutaneous syringe | syringe | | | | | | + + + +---+------+---+-------+ | torsemide 100 mg | Take 1 tablet by | | 0 | 02/2 | | Activ | | oral tablet | mouth three times | | | 0/20 | | e | | | daily. Resume half | | | 20 | | | | | dose for first week | | | | | | | | post opertative | | | | | | + + + +---+------+---+-------+ | topiramate 100 mg | Take 1 tablet by | 270 | 3 | 06/ | | Activ | | oral | mouth three times | tablet | | 8/20 | | e | | tabletIndications: | daily. Indications: | | | 20 | | | | essential tremor | Indications: | | | | | | | | essential tremor | | | | | | + + + +---+------+---+-------+ | PHENTERMINE 37.5 | TAKE 1 TABLET BY | 90 | 1 | 07/3 | | Activ | | mg oral tablet | MOUTH IN THE MORNING | tablet | | 0/20 | | e | | | BEFORE BREAKFAST | | | 20 | | | + + + +---+------+---+-------+ Active Problems + + + | Problem | Noted Date | + + + | Incarcerated hernia | 08/18/2019 | + + + | History of Frandy-en-Y gastric bypass | 03/10/2018 | + + + | Impaired intestinal absorption | 03/10/2018 | + + + | Chronic diastolic heart failure | 02/02/2017 | + + + | [...] | 11/09/2015 | + + + | Acute DVT (deep [...] + + | Hypoventilation associated with obesity | 06/16/2013 | + + + | PCOS (polycystic ovarian syndrome) | 06/16/2013 | + + + | AMARA (obstructive sleep apnea) | 04/14/2013 | + + + + + | Overview: Cannot tolerate CPAP | + + + + + | Edema and weight gain | 04/14/2013 | + + + | Severe Morbid obesity (HCC), BMI 88 | 11/12/2012 | + + + + + | Overview: Lifetime max: 495 lbs | | S/P RYGB 2018 | | Post op maxi 270 lbs | | Phentermine and topiramate started 2018 | + + + +---+ | Hypothyroidism | | + +---+ Resolved Problems + + + + | Problem | Noted | Resolved | | | Date | Date | + + + + | Acute post-operative pain | 03/02/20 | | | | 18 | 8 | + + + + | Morbid obesity with BMI of 70 and over, adult | 02/03/20 | | | | 17 | 0 | + + + + | Severe muscle deconditioning | 02/03/20 | | | | 17 | 0 | + + + + | AMARA treated with BiPAP | 02/03/20 | | | | 17 | 9 | + + + + | Benign essential HTN | 02/03/20 | | | | 17 | 0 | + + + + | Diabetes mellitus type 2 without retinopathy | 02/03/20 | | | | 17 [...] + + + + + + | YO (dyspnea on exertion) | 11/06/19 | | | | 16 | 0 | + + + + | Anasarca | 11/06/19 | | | | 16 | 0 | + + + + | Diabetes mellitus with insulin therapy | 12/28/19 | | | | 15 | 0 | + + + + | Hypothyroidism | 08/28/19 | | | | 15 | 0 | + + + + | Abdominal pain | 02/08/20 | | | | 14 | 0 | + + + + | Morbid obesity with BMI of 70 and over, adult | 06/16/20 | | | | 13 | 4 | + + + + | Diabetes mellitus | 06/16/20 | | | | 13 | 4 | + + + + | Skin breakdown | 06/16/20 | | | | 13 | 0 | + + + + | Sleep apnea | 06/16/20 | | | | 13 | 4 | + + + + | Ventral hernia | 06/16/20 | | | | 13 | 0 | + + + + | Type 2 diabetes mellitus | 04/14/20 | | | | 13 | 0 | + + + + | GERD (gastroesophageal reflux disease) | 04/14/20 | | | | 13 | 8 | + + + + | Hernia | 11/06/19 | 09/15/ | | | 13 | 0 | + + + + Encounters +--------+ + + + + | Date | Type | Specialty | Care Team | Description | +--------+ + + + + | 02/26/ | Telephone | Surgery | Clinic, Surgery | Follow-up visit | | 2019 | | | | | +--------+ + + + + | 02/23/ | Telephone | Cardiology | Randell Franks, | Medication Question | | 2019 | | | MD | (Phentermine) | +--------+ + + + + | 02/20/ | Refill | Cardiology | Randell Franks, | Refill Request | | 2020 | | | MD | | +--------+ + + + + | 01/10/ | Refill | Cardiology | Randell Franks, | Refill Request | | 2020 | | | MD | (topiramate 100 mg | | | | | | oral tablet TID) | +--------+ + + + + from Last 3 Months Family History + + +------+ + | Medical History | Relation | Name | Comments | + + +------+ + | Alcohol [...] | lupus | + + +------+ + | Anesthesia problems | Neg Hx | | | + + +------+ + [...] + +------+ + + Social History + + + [...] | Tobacco Cessation: Counseling Given: Yes | | Comments: former social smoker | + [...] + + + | Blood Pressure | 110/66 | 09/15/2019 4:08 PM | | | | | PST | | + + + + + | Pulse | 106 | 09/15/2019 4:08 PM | | | | | PST [...] + | Oxygen Saturation | 98% | 09/15/2019 4:08 PM | | | | | PST | | + + + + + | Inhaled Oxygen | - | - | | | Concentration | | | | + + + + + | Weight | 125.8 kg (277 lb 6.4 | 09/15/2019 4:08 PM | | | | oz) | PST | | + + + + + | Height | 147.3 cm (4' 10") | 09/15/2019 4:08 PM | | | | | PST | | + + + + + | Body Mass Index | 57.98 | 09/15/2019 4:08 PM | | | | | PST | | + + + + + Plan of Treatment +--------+ + + + + | Date | Type | Specialty | Care Team | Description | +--------+ + + + + | 04/04/ | Telephone-S | Surgery | Orquidea Cristobal, | | | 2020 | cheloveled | | TEACHER [address] | | | | | | [place], [place] | | | | | | [address] | | | | | | [phone] | | | | | | | | +--------+ + + + + + + + + + | Health Maintenance | Due Date | Last | Comments | | | | Done | | + + + + + | Influenza (Flu) | | 04/27/20 | | | vaccination (#1) | 0 | 18, | | | | | 06/04/20 | | | | | 17, | | | | | 04/16/20 | | | | | 16, | | | | | Addition | | | | | al | | | | | history | | | | | exists | | + + + + + | Pneumococcal | Completed | 08/07/19 | | | vaccination | | 16 | | + + + + + Implants + +------+------+ +--------+--------+--------+ | Implanted | Type | Area | Manufacture | Device | Shelf | Model | | | | | r | | Expira | / | | | | | | Identi | tion | Serial | | | | | | fier | Date | / Lot | + +------+------+ +--------+--------+--------+ | Reinforcement Staple Line | | | [employer] | | 04/25/ | [id number] | | Bioabsorbable Sterile | | | [employer] | | 2019 | [id number] / | | Seamguard Latex Free | | | | | | | | Disposable Blue Gold Green - | | | | | | /[id number] | | [id number]: Qty: 1 on | | | | | | 525 | | 03/01/2018 by Ion Pandey | | | | | | | | MD Vinicius at [facility] | | | | | | | | LOC | | | | | | | + +------+------+ +--------+--------+--------+ | Reinforcement Staple Line | | | [employer] | | 11/23/ | [id number] | | Bioabsorbable Sterile | | | [employer] | | 2020 | [id number] / | | Seamguard Latex Free | | | | | | | | Disposable Blue Gold Green - | | | | | | /[id number] | | [id number]: Qty: 1 on | | | | | | 173 | | 03/01/2018 by Ion Pandey | | | | | | | | MD Vinicius at [facility] | | | | | | | | LOC | | | | | | | + +------+------+ +--------+--------+--------+ Results Not on filefrom Last 3 Months Insurance + +--------+ +--------+-------+---------+--------+ | Payer | Benefi | Subscriber | Effect | Phone | Address | Type | | | t Plan | ID | scarlett | | | | | | / | | Dates | | | | | | Group | | | | | | + +--------+ +--------+-------+---------+--------+ | [employer]ICAID | [employer] | [id number] | | | | Medica | | | [place] | | 012-Pr | | | id | | | [place] | | esent | | | | + +--------+ +--------+-------+---------+--------+ + +--------+ +--------+ + + | Guarantor Name | Accoun | Relation to | Date | Phone | Billing Address | | | t Type | Patient | of | | | | | | | | | | + +--------+ +--------+ + + | Elzbieta Cristina | Person | Self | [birth year] | [address] | | | al/Fam | | 1975 | [phone] | [place] | | | mireya | | | 3 (Home) | [address] | + +--------+ +--------+ + + Advance Directives + + + + + | Code Status | Date | Date | Comments | | | Activated | Inactivated | | + + + + + | Full Code | 08/18/2019 | 08/23/2019 | | | | 6:22 PM | 7:06 PM | | + + + + + + + + +---+ | | | | | + + + +---+ | Full Code | 05/14/2019 | 05/14/2019 | | | | 1:26 AM | 9:56 PM | | + + + +---+ + + + +---+ | | | | | + + + +---+ | Full Code | 03/01/2018 | 03/03/2018 | | | | 6:09 AM | 7:35 PM | | + + + +---+ + + + +---+ | | | | | + + + +---+ | Full Code | 01/02/2017 | 01/02/2017 | | | | 9:04 AM | 5:35 PM | | + + + +---+ + + + +---+ | | | | | + + + +---+ | Full Code | 11/07/2015 | 11/21/2015 | | | | 3:17 AM | 7:50 PM | | + + + +---+
--- OUTSIDE RECORDS SUMMARY | ~2020-03-26 | XMS | Encounter Summary ---
Demographics + + + | Address | [address] | | | [place] [address] | + + + | Home Phone | | + + + | Preferred Language | Unknown | + + + | Marital Status | Single | + + + | Episcopalian Affiliation | NON | + + + [...] + | Katalina Padilla | ECON | [address] | | | | | [place], [place] | | | | | [address] | | + + + + + | Ellie Vang | ECON | Unknown | | + + + + + Care Team Providers + +------+ + | Care Licensed Home Inspector Name | Role | Phone | [...] 04/28/ | Refill | Digestive Health | Ion Pandey Vinicius, | Refill Request | | 2018 | | Center at [facility] [address] | MD [address] | | | | | [address] | [place], [place] | | | | | for Health and | [phone] | | | | | [facility], [facility] | [phone] | | | | | [place], [place] | | | | | | [address] | | | | | | [phone] | | | +--------+--------+ + + + [...] | | 2020 | sherrill | | SENIOR ESTIMATOR [address] | | | | | | [place] | | | | | | [address] | | | | | | [phone] | | | | | | | | +--------+ + + + + documented as of this encounter Visit Diagnoses Not on filedocumented in this encounter"
--- OUTSIDE RECORDS SUMMARY | ~2020-03-26 | XMS | Encounter Summary ---
Demographics + + + | Address | [address] | | | [place] [address] | + + + | Home Phone [...] + | Katalina Padilla | ECON | [address] | | | | | [place], [place] | | | | | [address] | | + + + + + | Ellie Vang | ECON | Unknown | | + + + + + Care Team Providers + +------+ + | Care Payroll Professional Name | Role | Phone | + +------+ + | Faid Goodrich DO | PCP | | + +------+ + Reason for Referral Physical Therapy (Routine) +--------+--------+ + + + + | Status | Reason | Specialty | Diagnoses / | Referred By | Referred To | | | | | Procedures | Contact | Contact | +--------+--------+ + + + + | Closed | | Physical | Diagnoses | Dannie, | | | | | Therapy | Pre-op | Ion Colvin MD | | | | | | evaluation | [address] | | | | | Morbid | [address] | | | | | | obesity | [place], [place] | | | | | | ([facility]) | [address] | | | | | | Procedures | Phone: | | | | | | PHYSICAL | | | | | | | THERAPY | Fax: | | | | | | REFERRAL | [phone] | | +--------+--------+ + + + + Encounter Details +--------+ + + + + | Date | Type | Department | Care Team | Description | +--------+ + + + + | 06/22/ | Net Lead Developer | Digestive Health | Ion Pandey, | Pre-op evaluation | | 2016 | | Center at [facility] [address] | [address] | (Primary Dx); Morbid | | | | [address] | [facility] [place] | obesity (HCC) | | | | for Health and | [address] | | | | | Healing, [address] | | | | | | [place], [place] | | | | | | [address] | | | | | | [phone] | | | +--------+ + + + [...] this encounter Miscellaneous Notes Telephone Encounter - Gris Fontana RN - 06/22/2017 3:24 PM PSTYour fax has been successf ully sent to [facility] at [phone]. From: Gris Fontana RN-BSLoretta, ANGELITON Account: [id number] Matter: [id number] 06/22/2017 2:58:44 PM Transmission Record Sent to [id number] with remote ID "[id number]" Result: ([id number];0/[id number]) Success Page record: Elapsed time: 09:29 on channel 15 documented in this encounter Plan of Treatment +--------+ + + + + | Date | Type | Specialty | Care Team | Description | +--------+ + + + + | 04/04/ | Telephone-S | Surgery | Orquidea Cristobal, | | | 2020 | sherrill | | EAP CLINICIAN [address] | | | | | | [place], [place] | | | | | | [address] | | | | | | [phone] | | | | | | | | +--------+ + + + + documented as of this encounter Visit Diagnoses + + | Diagnosis | + + | Pre-op evaluation - Primary Preoperative examination, unspecified | + + | Morbid obesity (HCC) Morbid obesity | + + documented in this encounter
--- OUTSIDE RECORDS SUMMARY | ~2020-03-26 | XMS | Encounter Summary ---
Demographics + + + | Address | [address] | | | [place] [address] | + + + | Home Phone | | + + + | Preferred Language | Unknown | + + + | Marital Status | Single | + + + | Restorationism Affiliation | NON | + + + [...] [place], [place] | | | | | [address] | | + + + + + [...] Description | +--------+--------+ + + + | 01/07/ | Travel | | | | | [...] | | 2020 | sarahiduled | | SENIOR SPECIALIST [address] | | | | | | [place], [place] | | | | | | [address] | | | | | | [phone] | | | | | | | | +--------+ + + + + documented as of this encounter Visit Diagnoses Not on filedocumented in this encounter"
--- OUTSIDE RECORDS SUMMARY | ~2020-03-26 | XMS | Encounter Summary ---
Demographics + + + | Address | [address] | | | [place] [address] | + + + | Home Phone [...] [place], [place] | | | | | [address] | | + + + + + | Ellie Vang | ECON | Unknown | | + + + + + Care Team Providers + +------+ + | Care Fly Fishing Guide Name | Role | Phone | + [...] | | 2020 | sarahiduled | | METAL OFF BEARER [address] | | | | | | [place], [place] | | | | | | [address] | | | | | | [phone] | | | | | | | | +--------+ + + + + documented as of this encounter Visit Diagnoses Not on filedocumented in this encounter"
--- OUTSIDE RECORDS SUMMARY | ~2020-03-26 | XMS | Encounter Summary ---
Demographics + + + | Address | [address] | | | [place] [address] | + + + | Home Phone [...] + | Katalina Padilla | ECON | [address] | | | | | [place], [place] | | | | | [address] | | + + + + + | Ellie Vang | ECON | Unknown | | + + + + + Care Team Providers + +------+ + | Care Chief Investigator Name | Role | Phone | + +------+ + | Kenyatta Cardenas MD | PCP | | + +------+ + Reason for Visit +--------+--------+ + | Reason | Onset | Comments | | | Date | | +--------+--------+ + | Other | 08/26/ | | | | 2020 | | +--------+--------+ + Encounter Details +--------+ + + + + | Date | Type | Department | Care Team | Description | +--------+ + + + + | 08/26/ | Telephone | Digestive Health | Chilo | Other | | 2020 | | Center at [facility] [address] | MD [address] | | | | | [facility] | [facility] | | | | | [facility] and | [place], [place] | | | | | [place] [address] | [address] | | | | | [place], [place] | [phone] | | | | | [address] | | | | | | [phone] | | | +--------+ + + + [...] this encounter Miscellaneous Notes Telephone Encounter - Paulino Hooker RN - 08/26/2019 11:18 AM PSTPer resident, khris patterson refilled x1. This will be the last time this will be refilled. Pt will need to follow up w [facility] ED should her pain become unmanageable. Discussed above with patient, who reports understanding. elephone Encounter - Paulino Hooker RN - 08/26/2019 10:29 AM PSTI called pt back and spoke to pt about symptoms/concerns. Concern: 03/05 abdominal surgical pain, right next to incision, constant throbbing. Incision is clean, dry, intact, no redness/swelling/discharge noted. Patient went to see her PCP for follow up regarding additional pain medication, reports she was unable to get pain medication from PCP (mentions that the PCP angrily declined her and that she should not follow up with him regarding surgery pain). Pt was taking hydromorphone 3mg Q4 hours as instructed and ran out last night. Pt is taking acetaminophen 1000mg every 6 hours and trying to stay active, moving around. Moving her bowels, trying to eat and drink normally. Denies fever, nausea, vomiting. Patient requesting for any medication to be sent to [facility] [place], if presc ribed. Recommendations: Will follow up with [facility] team. Pt requests call back. Pt informed to go to the ER for urgent symptoms. Pt verbalized understanding and agreement with plan. elephone Encounter - Neelam Sanders - 08/26/2019 10:07 AM PSTPATIENT LEFT VOICE MESSAGE ON 08/26/19 AT 8:49 REGARDING stating that she needs to speak to someone about pain pills because her PCP would not prescribe any for her Please return call [facility] Plan of Treatment +--------+ + + + + | Date | Type | Specialty | Care Team | Description | +--------+ + + + + | 04/04/ | Telephone-S | Surgery | Orquidea Cristobal, | | | 2019 | sherrill | | SHOE REPAIRMAN [address] | | | | | | [place], [place] | | | | | | [address] | | | | | | [phone] | | | | | | | | +--------+ + + + + documented as of this encounter Visit Diagnoses Not on filedocumented in this encounter"
--- OUTSIDE RECORDS SUMMARY | ~2020-03-26 | XMS | Encounter Summary ---
Demographics + + + | Address | [address] | | | [place] [address] | + + + | Home Phone [...] [place], [place] | | | | | [address] | | + + + + + | Ellie Vang | ECON | Unknown | | + + + + + Care Team Providers + +------+ + | Care Finishing Machine Operator Name | Role | Phone [...] | [facility] | | | with [employer] | | hypertension | [address] | | | | | Right | [address] | [address] | | | | | heart | [place], [place] | Center for | | | | | failure | [address] | Health and | | | | | ([facility]) Type | Phone: | Healing, | | | | | 2 diabetes | [phone] | Building 2 | | | | | mellitus | Fax: | [place], [place] | | | | | without | [phone] | [address] | | | | | complication | | Phone: | | | | | , with | | [phone] | | | | | long-term | | Fax: | | | | | current use | | [phone] | | | | | of insulin | | | | | | | ([facility]) | | | | | [...] | 2019 | Visit | Center at [facility] [address] | [address] | gastric bypass | | | | [address] | [place], [place] | (Primary Dx); | | | | for Health and | [address] | Intertriginous | | | | Healing, Building 2 | [phone] | candidiasis | | | | [place], [place] | | | | | | [address] | | | | | | [phone] | | | +--------+---------+ + + + [...] a new PCP, Dr. Cardenas in [facility]. Bariatric Measures: Activity: walking 1.5-2 miles daily [...] 70 and over in adult ([facility]) Myalgia and myositis Nausea Neck pain Numbness Osteoarthritis of knee Palpitations Pneumonia Shortness of breath Staphylococcal infection Stroke ([facility]) TIA (transient ischemic attack) due to Bromocriptine Tinea corporis UTI (urinary tract infection) Past Surgical History Procedure Laterality Date Tonsillectomy and adenoidectomy Appendectomy, open 2010 Umbilical hernia repair 2010 Treatment of ankle fracture with screws remaining Incision and drainage of wound abscess x2 midline transverse wound s/p open appendectomy 2010 Ventral hernia repair 10/2012 Dr. Andie Brian Incisional hernia repair 03/01/2015 [facility]/ Dr. Cantu. Primary fascial closure and scar excision Lap gastric byp, and nilesh-en-y gastroenterostomy w/ nilesh limb 150 cm or less 8 [facility] Social History Social History Marital status: [...] History Narrative Updated 11/09/15 She lives in [place] with her mother and her sister (also her caregiver) lives in an apa rtment/duplex below. She has 2 grandchildren (age 4 and 7) who live with her daughter and son-in-law Her boyfriend lives in [place] HFpEF, DM2, HTN, Sleep Apnea (unable to [...] refer her to our cardiac cath lab radiology technologist who also has expertise in physical [...] tongue once daily., Disp: , Rfl: CALCIUM [id number] ORAL, Take 2 tablets by mouth two [...] n/a -HTN: still on medications -Diabetes: seeing table cover folder in December, hopes to eliminate Metformin then as recent A1c was normal Return to bariatric clinic in 6 months for 1 year follow up visit See your primary care provider for adjusting any other medications. Call if any abdominal pain, n/v/d or other issues. Pt agrees to plan and will call and/or send [employer] message if any issues. Start time 2:45, end time 3:10. I spent a total of 25 minutes face to face with this patie nt. Over 50% of visit was in counseling. HILDA Davalos Bariatric Surgery Nurse Practitioner [facility] | [address] | [place], [place] | [address] | documented in this encounter Miscellaneous Notes Addendum Note - Melissa Rajan RN - 10/12/2018 2:35 PM PDT Addended by: LORI RAJAN on: 10/19/2018 08:45 AM Modules accepted: Orders documented in thi s encounter Plan of Treatment +--------+ + + + + | Date | Type | Specialty | Care Team | Description | +--------+ + + + + | 04/04/ | Telephone-S | Surgery | Orquidea Cristobal, | | | 2019 | sherrill | | [facility] [address] | | | | | | [place], [place] | | | | | | [address] | | | | | | [phone] | | | | | | | [...] [facility] | [address] | [place] [address] | | | SERVICES, CORE | PARK [...] | + + + + + | [facility] | [address] | [place] [address] | | | SERVICES, CORE | CLARENCE [...] B: | | | | | | coJuvo/CSPerformed | | | | | | by [employer],[address] | | | | | | Liliana Martinez, [facility] | | | | | | [address] | | | | | | [phone].[facility]. | | | | | | Ismael [...] [facility] | [address] | [place], [place] | | | UNIV PTH - INTFC | | [address] | | + + + + + [...] B: | | | | | | [employer]/CSPerformed | | | | | | by [employer],[address] | | | | | | Liliana Martinez [facility] | | | | | | [address] | | | | | | [phone].[employer]. | | | | | | comIsmael [...] [facility] | [address] | [place], [place] | | | UNIV PTH - INTFC | | [address] | | + + + + + [...] [facility] | | | (YEN NOAH) | Count includes the [facility],[address] | | REG UNIV | | | SERUM | Liliana Juan, [facility] | | PTH - INTFC | | | | [address] | | | | | | [phone]. | | | | | | [facility], Ismael Willis MD, | | | | | | Lab. Director | | | | + + + + + + | VITAMIN E | 9.3Comment: Test | 5.5 - 18.0 mg/L | [facility] | | | (ALPHA | developed and | | REG UNIV | | | NOAH), SERUM | characteristics | | PTH - INTFC | | | | determined by [facility] | | | | | | Laboratories. See | | | | | | Compliance Statement B: | | | | | | [employer].[facility]/ | | | | + + + + + + + + | Specimen | + + | Blood - Blood | | (substance) | + + + + + + + | Performing | Address | City/State/Zipcode | Phone Number | | Organization | | | | + + + + + | [facility] | [address] | [place], [place] | | | UNIV PTH - INTFC | | [address] | | + + + + + [...] [facility] | [address] | [place] [address] | | | SERVICES, CORE | PARK [...] + + + + + | [facility] | [address] | [place] [address] | | | SERVICES, CORE | PARK [...] | | | | | determined by [facility] | | | | | | Laboratories. See | | | | | | Compliance Statement B: | | | | | | [employer]/CSPerformed | | | | | | by [employer],[address] | | | | | | Liliana Martinez [facility] | | | | | | [address] | | | | | | [phone].[employer]. | | | | | | comIsmael [...] [facility] | [address] | [place], [place] | | | UNIV PTH - INTFC | | [address] | | + + + + + [...] [facility] | [address] | [place] [address] | | | SERVICES, [facility] | [address] | | | + [...] | | | | | determined by [employer] | | | | | | Laboratories. See | | | | | | Compliance Statement B: | | | | | | coJuvo/CSPerformed | | | | | | by [employer],[address] | | | | | | Liliana Martinez, [facility] | | | | | | [address] | | | | | | [phone]. | | | | | | Ismael [...] [facility] | [address] | [place], [place] | | | UNIV PTH - INTFC | | [address] | | + + + + + [...] | + + + + + | [facility] | [address] [facility] | [place] [address] | | | SERVICES, CORE | CLARENCE [...] | + + + + + | [facility] | [address] | [place] [address] | | | SERVICES, SPECIAL | PARK [...] | + + + + + | [facility] | [address] | [place] [address] | | | SERVICES, CORE | CLARENCE [...] at | | | | | | www.[employer]/csPerfor | | | | | | med by [place] | | | | | | Laboratories,[address] [facility] | | | | | | Juan [facility] [place] [address] | | | | | | [phone].[employer]. | | | | | | [facility] healthcareIsmael MD, | | | | | | [...] [facility] | [address] | [place], [place] | | | UNIV PTH - INTFC | | [address] | | + + + + + [...] | | | LABORATORY | | | GREEK | | | SERVICES, | | | [...] | + + + + + | [facility] | [address] | [place] [address] | | | SERVICES, CORE | CLARENCE [...]
--- OUTSIDE RECORDS SUMMARY | ~2020-03-26 | XMS | Encounter Summary ---
Demographics + + + | Address | [address] | | | [place] [address] | + + + | Home Phone | | + + + | Preferred Language | Unknown | + + + | Marital Status | | + + + | Latter Day Affiliation | Unknown | + + + | Race | White | + + + | Ethnic Group | Not or | + + + Author + + + | Author | [facility] | | | and [place] | + + + | Organization | [facility] | | | and [place] | + + + | Address | Unknown | + + + | Phone | Unavailable | + + + Support + + +---------+ + | Name | Relationship | Address | Phone | + + +---------+ + | Katalina Padilla | ECON | Unknown | | + + +---------+ + | Ellie Espinaljungrey | ECON | Unknown | | + + +---------+ + Care Team Providers + +------+ + | Care Rubber Stamp Assembler Name | Role | Phone | + +------+ + PCP | Unavailable | + +------+ + Encounter Details +--------+ + + + + | Date | Type | Department | Care Team | Description | +--------+ + + + + | 04/14/ | Orders Only | [facility] | Conversion | | | 2015 | | NEPHROLOGY [place] | Transaction, | | | | | [address] | Provider Unknown | | | | | [address] [place], [place] | | | | | | [address] | (Fax) | | | | | [phone] | | | +--------+ + + + [...] | Cardiology | Sulema Altamirano | | 2019 | Visit | | HILDA [address] | | | | | | [address] | | | | | | [place] [address] | | | | | | [phone] | | | | | | | | +--------+ + + + + | 04/18/ | Procedure | Neurology | Camille De La Paz, | | | 2019 | visit | | MD [address]um[address]E | | | | | | [address] | | | | | | [place] [address] | | | | | | [phone] | | | | | | | | +--------+ + + + + documented as of this encounter Procedures + +--------+ + + + | Procedure Name | Priori | Date/Time | Associated Diagnosis | Comments | | | ty | | | | + +--------+ + + + | EXTERNAL LAB: CBC | Routin | 04/14/2016 | | Results for this | | | e | 2:30 PM | | procedure are in the | | | | PDT | | results section. | + +--------+ + + + | URINALYSIS, | Routin | 04/14/2016 | | Results for this | | MICROSCOPIC ONLY | e | 2:30 PM | | procedure are in the | | | | PDT | | results section. | + +--------+ + + + | PROTEIN/CREATININE | Routin | 04/14/2016 | | Results for this | | RATIO, URINE | e | 2:30 PM | | procedure are in the | | | | PDT | | results section. | + +--------+ + + + | URIC ACID | Routin | 04/14/2016 | | Results for this | | | e | 2:30 PM | | procedure are in the | | | | PDT | | results section. | + +--------+ + + + | MAGNESIUM | Routin | 04/14/2016 | | Results for this | | | e | 2:30 PM | | procedure are in the | | | | PDT | | results section. | + +--------+ + + + | BASIC METABOLIC | Routin | 04/14/2016 | | Results for this | | PANEL | e | 2:30 PM | | procedure are in the | | | | PDT | | results section. | + +--------+ + + + documented in this encounter Results Protein/Creatinine Ratio, Urine (04/14/2016 2:30 PM PDT) + +-------+ + + + | Component | Value | Ref Range | Performed | Pathologist | | | | | At | Signature | + +-------+ + + + | Protein/Cre | 116.7 | 0 - 150 | EXTERNAL | [...] | | | + +---------+ + + Urinalysis, Microscopic Only (04/14/2016 2:30 PM PDT) + + + + + [...] + + + + + + | Specific | 1.010 | 1.005 - 1.030 | EXTERNAL | | | [place], | | | LAB | | | [...] + + + + + + | Protein, | Negative | | EXTERNAL | | | Urine | | | LAB | | + + + + + + | pH, Urine | 5 | 5 - 9 | EXTERNAL | | | | | [...] + +---------+ + + External Lab: CBC (04/14/2016 2:30 PM PDT) + + + + + + | Component | Value | Ref Range | Performed | Pathologist | | | | | At | Signature | + + + + + + | WBC | 9.3 | 4.6 - 11.0 10 | EXTERNAL | | | | | | LAB | | + + + + + + | Non- | 5.38 (A) | 3.8 - 5.1 10 | EXTERNAL | | | Red Blood | | | LAB | | | Cells | | | | | | Counted | | | | | + + + + + + | Hemoglobin | 13.7 | 12.0 - 16.0 | EXTERNAL | | | | | g/dL | LAB | | + + + + + + | Hematocrit, | 44.0 | 35 - 45 % | EXTERNAL | | | POC | | | LAB | | + + + + + + | MCV | 81.9 | 81 - 99 fL | EXTERNAL | | | | | | LAB | | + + + + + + | MCH | 25 (A) | 27 - 33 pg | EXTERNAL | | | | | | LAB | | + + + + + + | MCHC | 31 | 30 - 36 g/dL | EXTERNAL | | | | | | LAB | | + + + + + + | Platelet | 277 | 140 - 440 K/ L | EXTERNAL | | | Count | | | LAB | | | Plasma | | | | | + + + + + + | RDW-CV | | % | EXTERNAL | | [...] | | | + +---------+ + + Uric Acid (04/14/2016 2:30 PM PDT) + + + + + + | Component | Value | Ref Range | Performed | Pathologist | | | | | At | Signature | + + + + + + | Uric Acid | 10.7 (A) | 2.3 - 6.6 | EXTERNAL | | | | | [...] | | + +---------+ + + Magnesium (04/14/2016 2:30 PM PDT) + +-------+ + + + | Component | Value | Ref Range | Performed | Pathologist | | | | | At | Signature | + +-------+ + + + | Magnesium | 1.9 | 1.7 - 2.5 mg/dL | EXTERNAL [...] | | | + +---------+ + + Basic Metabolic Panel (04/14/2016 2:30 PM PDT) + +---------+ + + + | Component | Value | Ref Range | Performed | Pathologist | | | | | At | Signature | + +---------+ + + + | Glucose, | 149 (A) | 70 - 100 mg/dL | EXTERNAL | | | Fasting | | | LAB | | + +---------+ + + + | BUN | 13 | 6 - 23 mg/dL | EXTERNAL | | | | | | LAB | | + +---------+ + + + | Creatinine | 0.84 | 0.60 - 1.35 | EXTERNAL | | | | | mg/dL | LAB | | + +---------+ + + + | BUN/Creatin | 16.6 | 6.0 - 28.6 | EXTERNAL | | | ine Ratio | | | LAB | | + +---------+ + + + | Calcium | 10.1 | 8.4 - 10.2 | EXTERNAL | | | | | mg/dL | LAB | | + +---------+ + + + | Na | 139 | 132 - 143 | EXTERNAL | | | | | mmol/L | LAB | | + +---------+ + + + | K | 3.8 | 3.6 - 5.1 | EXTERNAL | | | | | mmol/L | LAB | | + +---------+ + + + | Cl | 105 | 96 - 112 mmol/L | EXTERNAL | | | | | | LAB | | + +---------+ + + + | CO2 | 19 | 19 - 31 mmol/L | EXTERNAL | | | | | | LAB | | + +---------+ + + + | Anion Gap | 18.9 | 7 - 21 mmol/L | EXTERNAL | | | | | | LAB | | + +---------+ + + + | Estimated | 75 | mg/dL | EXTERNAL | | | [...]
--- OUTSIDE RECORDS SUMMARY | ~2020-03-26 | XMS | Encounter Summary ---
Demographics + + + | Address | [address] | | | [place] [address] | + + + | Home Phone [...] [place], [place] | | | | | [address] | | + + + + + | Ellie Vang | ECON | Unknown | | + + + + + Care Team Providers + +------+ + | Care Linotype Worker Name | Role | Phone | [...] + + + + | 05/13/ | Emergency | [facility] Emergency | Josemanuel Joe | | | 2019 - | | Department [address] | | | | | [address] | [address] | | | 05/14/ | | [facility] | [place], [place] | | | 2019 | | [place], [place] | [address] | | | | | [address] | [phone] | | | | | [phone] | | | +--------+ + + + [...] + + + | Blood Pressure | 142/95 | 05/14/2019 3:31 PM | | | | | PDT | | + + + + + | Pulse | 91 | 05/13/2019 5:26 PM | | | | | PDT | | + + + + + | Temperature | 36.6 C (97.9 F) | 05/13/2019 5:28 PM | | | | | PDT | | + + + + + | Respiratory Rate | 16 | 05/14/2019 4:06 AM | | | | | PDT | | + + + + + | Oxygen Saturation | 97% | 05/14/2019 3:31 PM | | | | | PDT | | + + + + + | Inhaled Oxygen | - | - | | | Concentration | | | | + + + + + | Weight | 125.2 kg (276 lb) | 05/13/2019 5:26 PM | | | | | PDT | | + + + + + | Height | 152.4 cm (5') | 05/13/2019 5:26 PM | | | | | PDT | | + + + + + | Body Mass Index | 53.9 | 05/13/2019 5:26 PM | | | | | PDT [...] documented as of this encounter Discharge Summaries Johana Holloway MD - 05/14/2019 8:21 AM PDTFormatting of this note might be different fr om the original. [facility] Discharge Summary Green Surgery Admit Date: 05/13/2019 Discharge Date: 05/14/19 PCP: Kenyatta Hylton MD Attending Physician: Johana Holloway MD Discharging Provider: Anisa Christopher MD PhD Reason for Admission: Incarcerated ventral hernia Principal Final Diagnosis: Incarcerated ventral hernia Additional Diagnoses: Acute pain Procedures: None Hospital Course By Problem: Dylan Cristina is a 44 yo F with a history of HTN, DM2, R CHF, hypothyroidism, morbid obe sity s/p laparoscopic antecolic RYGB 2017, AMARA, bipolar disorder, depression, anxiety, histo ry of stroke/TIA, DVT, and multiple hernia repairs with a known incarcerated ventral hernia containing bowel who presented with abdominal pain. She was made NPO and a NGT was placed. A CT A/P on 05/13/2019 revealed mesenteric adenitis with no internal hernia or evidence of ob struction. Her NGT was removed and she was started on a regular diet. She was determined to be safe for discharge home. She has surgery scheduled for June for ventral hernia repair - we will attempt to move up the date in order to help relive her symptoms. She will follow -up with her PCP to manage her pain in 2 weeks. Pathology: None. Education was provided to the patient and family/caregiver regarding: pain control, warning symptoms of bowel strangulation, bowel regimen. Discharge Medications: Medication List START taking these medications acetaminophen 500 mg Tab Commonly known as: TYLENOL Take 2 tablets by mouth every six hours as needed for mild pain. oxyCODONE (immediate release) 5 mg Tab Commonly known as: ROXICODONE Take 1-2 tablets by mouth every six hours as needed for moderate pain (unresponsive to non- opioid medication). polyethylene glycol 17 gram Pwpk Commonly known as: MIRALAX Mix 1 packet and take orally once daily. senna 8.6 mg Tab Commonly known as: SENNA LAX Take 1 tablet by mouth once daily. CONTINUE taking these medications ALPRAZolam 1 mg Tab Commonly known as: XANAX Take 1 mg by mouth twice daily as needed. ARMOUR THYROID 30 mg Tab tab Generic drug: thyroid Take 30 mg by mouth once daily at bedtime. ascorbic acid (vitamin C) 500 mg Tab Commonly known as: VITAMIN C Take 1 tablet by mouth once daily. aspirin EC 81 mg Tbec Take 81 mg by mouth once daily. atenolol 50 mg Tab Commonly known as: TENORMIN Take 50 mg by mouth once daily at bedtime. CALCIUM [id number] ORAL Take 2 tablets by mouth two times daily. cyanocobalamin 1,000 mcg Tab Commonly known as: VITAMIN B-12 Take 1,000 mcg by mouth once daily. doxycycline hyclate 100 mg Tab Commonly known as: VIBRA-TABS Take 100 mg by mouth every twelve hours. (Pharmacist to substitute salt form as needed) ergocalciferol 50,000 unit Cap Commonly known as: VITAMIN D2 Take 1 capsule by mouth every seven days. fentaNYL 12 mcg/hr patch Commonly known as: DURAGESIC Apply 1 patch to skin every seventy-two hours. Please remove old patch prior to placing a n ew one. Ferrous Gluconate 324 mg total salt (36 mg elemental iron) Tab Take 1 tablet by mouth once daily. HAIR,SKIN AND NAILS ORAL Take 1 tablet by mouth once daily. LATUDA 20 mg Tab Generic drug: lurasidone Take 40 mg by mouth once daily at bedtime. magnesium oxide 400 mg Tab Commonly known as: MAG-OX Take 400 mg by mouth two times daily. meclizine 12.5 mg Tab Commonly known as: ANTIVERT Take 12.5 mg by mouth twice daily as needed (dizziness/vertigo). metoclopramide HCl 10 mg Tab Commonly known as: REGLAN Take 10 mg by mouth every six hours as needed for nausea/vomiting. multivitamin Tab Commonly known as: THERA VITAMIN Take 1 tablet by mouth once daily. nystatin 100,000 unit/gram Powd Commonly known as: MYCOSTATIN Apply to affected area two times daily. Apply to candidal lesions until lesions have healed . Indications: skin infection PARoxetine 40 mg Tab Commonly known as: [...] mg by mouth once daily at bedtime. promethazine 25 mg Tab Commonly known as: PHENERGAN Take 0.5 tablets by mouth four times daily as needed for nausea/vomiting. Indications: Post -Operative Nausea and Vomiting spironolactone 50 mg Tab Commonly known as: ALDACTONE Take 50 mg by mouth once daily. STOOL SOFTENER ORAL Take 200 mg by mouth. Equate brand per patient topiramate 50 mg Tab Commonly known as: TOPAMAX Take 1 tablet by mouth two times daily. May increase by 1 tab twice daily every 2 weeks, as tolerated. Max dose is 2 tabs twice daily. torsemide 100 mg Tab Commonly known as: DEMADEX Take 100 mg by mouth two times daily. Resume half dose for first week post opertative STOP taking these medications loperamide 2 mg Tab Commonly known as: IMODIUM Allergies: Allergies Allergen Reactions Amoxicillin Hives Benadrilina [Diphenhydramine Hcl] Hives and Throat Swelling / Closing Parlodel [Bromocriptine] Unknown Blood clots Penicillins Hives Zofran [Ondansetron Hcl (Pf)] Hives Code Status: Full POLST completed: no Additional Instructions: Diet Instructions Diet Type: Diabetic diet (Consistent Carbohydrate)- You should be careful to control you r daily intake of carbohydrates and ensure that you are consuming the same amount of carbohy drates each day. Your health care provider will work with you to determine the appropriate amount of carbohydrates your body needs. Bariatric diet- You should eat small portions of food that are ground or pureed. Your food choices should be low in fat and you should avoid concentrated sweets. - Activity Instructions No activity restrictions. Additional Instructions MEDICATIONS: Resume all your normal medications. You should take a stool softener (senna) and miralax da mireya. Your goal should be to have 1 bowel movement a day in order to prevent obstruction. Constipation Prevention: -Walk as much as possible. - Drink plenty of fluids. - Eat a diet that is high in fiber. -Take your prescribed stool softener and miralax as directed daily. -You may also need to try over the counter medications such as a rectal dulcolax suppositor y to produce a bowel movement. Take these according to the package directions. Please call y our primary care provider with any questions or concerns regarding your constipation. - If you are unable to have a bowel movement for several days and/or have abdominal pain wi th vomiting, have increased nausea and/or are not passing gas, please go directly to the [facility] rgency department to be evaluated. Pain Medications: Acetaminophen (Tylenol) and ibuprofen (Advil, [...] your stomach. If you still experience significant pain, then you m ay take the prescribed narcotic-opioid (e.g. oxycodone, hydrocodone, Vicodin, [place], Percoce t, Dilaudid) as needed. Opioid pain medications may cause constipation, so be sure to take a stool softener if you take an opioid pain medication. FOLLOW-UP: Follow-up with your primary care provider for pain control. Dr. Tiwari's technical service specialist will contact you to try to find a date for surgery. Follow Up: Future Appointments Provider Department Dept Phone Center 06/27/2019 11:55 AM [facility] PHONE/RN CLIN 3 Pre[facility] at [place] [address] [phone] [facility] 06/30/2019 11:30 AM [facility] Schedule the following appointment(s) when you get home JONES TIWARI MD. Specialty: General Surgery Why: Dr. Tiwari's technical service specialist will call you to schedule a surgery date. Contact information [address] [place] [address] Kenyatta Hylton MD. Specialty: Family Medicine Why: For pain control. Contact information [address] [place] [address] Discharge Physical Exam: Last 24 hour min/max Temp: 36.6 C (97.9 F) Temp Min: 36.6 C (97.9 F) Max: 36.6 C (97.9 F) Pulse: 91 Pulse Min: 91 Max: 91 Resp: 16 Resp Min: 16 Max: 18 BP: 117/73 BP Min: 117/73 Max: 138/67 SpO2: 98 % SpO2 Min: 95 % Max: 100 % Body mass index is 53.9 kg/m. General: Generally well appearing woman, sitting up in bed. Just finished breakfast. Appear s comfortable. HEENT: Normocephalic. Respiratory: Breathing comfortably on RA. Cardiovascular: Regular rate. Abdomen: Soft, appropriately tender to palpation, non-distended. Zonia-umbilical, ventral he rnia. No overlying skin changes. Well-healed laparoscopy scars from prior surgery. : Patient voiding without difficulty. Extremities: Moving all 4 extremities. Neuro: Alert and oriented. Grossly intact. Anisa Christopher MD PhD [facility] General Surgery ATTENDING PHYSICIAN STATEMENT I saw the patient and have repeated the pertinent portions of the history and physical exam . I agree with the findings, assessment and plan as documented by the resident. Johana Holloway MD Division of Gastrointestinal and General Surgery [facility] [address], [place] [address] Office: [phone] documented in this e ncounter Discharge Instructions Discharge Instr - AVS First Page Anisa Christopher MD - 05/14/2019 8:44 AM PDT Discharge Instr - Activity Anisa Christopher MD - 05/14/2019 8:36 AM PDTNo activity restriction s. Discharge Instr - Diet Anisa Christopher MD - 05/14/2019 8:37 AM PDTDiet Type: Diabetic diet (C onsistent Carbohydrate)- You should be careful to control your daily intake of carbohydrat es and ensure that you are consuming the same amount of carbohydrates each day. Your health care provider will work with you to determine the appropriate amount of carbohydrates your body needs. Bariatric diet- You should eat small portions of food that are ground or pureed. Your food choices should be low in fat and you should avoid concentrated sweets. Discharge Instr - Diagnoses Anisa Christopher MD - 05/14/2019 8:32 AM PDTIncarcerated ventral h ernia Discharge Instr - Procedures Anisa Christopher MD - 05/14/2019 8:32 AM PDTNoneElectronically si gned by Anisa Christopher MD at 05/14/2019 8:32 AM PDT Discharge Instr - Hospital Course Anisa Christopher MD - 05/14/2019 8:35 AM PDTYou were admitte d for abdominal pain related to your hernia. You were not allowed to eat and a nasogastric t ube was placed to help decompress your stomach in case of possible bowel obstruction. You rodrigues d a CT scan which revealed no obstruction. You were allowed to eat a regular diet and were s afe for discharge home with pain medications to help with pain control. You will follow-up w ith your primary care physician for continued assistance with pain control in 2 weeks. We wi ll attempt to move your surgery date up as possible and the technical service specialist will contact you. Elec tronically signed by Anisa Christopher MD at 05/14/2019 8:35 AM PDT Discharge Instr - Electronic Signature Anisa Christopher MD - 05/14/2019 8:44 AM PDTAfter Visit Summary Signature Electronically signed by: Anisa Christopher MD, 05/14/2019 at 8:44 AM Additional Instructions Anisa Christopher MD - 05/14/2019 8:36 AM PDTMEDICATIONS: Resume all your normal medications. You should take a stool softener (senna) and miralax da mireya. Your goal should be to have 1 bowel movement a day in order to prevent obstruction. Constipation Prevention: -Walk as much as possible. - Drink plenty of fluids. - Eat a diet that is high in fiber. -Take your prescribed stool softener and miralax as directed daily. -You may also need to try over the counter medications such as a rectal dulcolax suppositor y to produce a bowel movement. Take these according to the package directions. Please call y our primary care provider with any questions or concerns regarding your constipation. - If you are unable to have a bowel movement for several days and/or have abdominal pain wi th vomiting, have increased nausea and/or are not passing gas, please go directly to the [facility] r[facility] department to be evaluated. Pain Medications: Acetaminophen (Tylenol) and ibuprofen (Advil, [...] your stomach. If you still experience significant pain, then you m ay take the prescribed narcotic-opioid (e.g. oxycodone, hydrocodone, Vicodin, [place], Percoce t, Dilaudid) as needed. Opioid pain medications may cause constipation, so be sure to take a stool softener if you take an opioid pain medication. FOLLOW-UP: Follow-up with your primary care provider for pain control. Dr. Tiwari's technical service specialist will contact you to try to find a date for surgery. documented in this encounter Medications at Time [...] | | 0 | | | | [id number] | mouth two times | | | [...] + + documented as of this encounter H&P Notes Jones Tiwari MD - 05/13/2019 5:02 PM PDT DEPARTMENT OF SURGERY Green Surgery History and Physical Patient: Dylan Cristina ([id number]) Date: 05/13/2019 Chief Complaint: Abdominal pain History of Present Illness: Dylan Cristina is a(n) 44 y.o. female with HTN, T2DM, right HF, hypothyroidism, morbid obesity s/p laparoscopic anteocolic RYGB 03/01/2018, AMARA, bipolar d isorder, depression, anxiety, history of stroke/TIA, DVT, and multiple hernia repairs with k nown incarcerated ventral hernia containing bowel who presents with worsening abdominal pain . Patient was being seen by Dr. Ybarra for a panniculectomy and was sent to the ED from [facility]. Patient was seen by Dr. Tiwari in clinic on 05/05/2019 at which time she had diarrhea w ith nausea and vomiting. She developed new abdominal pain on 05/10/2019 at which time she wa s seen at [place] in [place], [place] (CT abdomen pelvis in [facility]). There was no evidence o f obstruction or strangulation, so patient was discharged home after she received anti nause a medication. Since then patient has continued to have worsening abdominal pain which she de scribes as constant, nonradiating, and stabbing. The pain is located at the inferior aspect of her ventral hernia. She has not passed any flatus or had a BM today. She has had NBNB devan sis for over 1 week with any oral intake. She denies any dysuria. She is currently on her me nstrual cycle. She denies any CP or SOB. Patient is afebrile and tachycardic to 100s with stable BP. Past Surgical History Procedure Laterality Date Tonsillectomy and adenoidectomy Appendectomy, open 2010 Umbilical hernia repair 2010 Treatment of ankle fracture with screws remaining Incision and drainage of wound abscess x2 midline transverse wound s/p open appendectomy 2010 Ventral hernia repair 10/2012 Dr. Andie Brian Incisional hernia repair 03/01/2015 [facility]/ Dr. Cantu. Primary fascial closure and scar excision Lap gastric byp, and nilesh-en-y gastroenterostomy w/ nilesh limb 150 cm or less 8 [facility], Dr Pandey Cholecystectomy, laparoscopic Past Medical History: Diagnosis Date Abdominal pain [...] TIA (transient ischemic attack) due to Bromocriptine Prior to Admission Medications Prescriptions ALPRAZolam 1 mg oral tablet Sig: Take 1 mg by mouth two times daily. CALCIUM [id number]-GENIS ORAL Sig: Take 2 tablets by mouth two times daily. CYANOCOBALAMIN (VITAMIN B-12) INJ Sig: by injection route every thirty days. FA/mv,Ca,iron,min/lycopene/lut (MULTIVITAL ORAL) Sig: Take by mouth. Ferrous Gluconate 324 mg total salt (36 mg elemental iron) oral tablet Sig: Take 1 tablet by mouth once daily. PARoxetine 10 mg oral tablet Sig: Take 40 mg by mouth once daily. ascorbic acid (vitamin C) (VITAMIN C) 500 mg oral tablet Sig: Take 1 tablet by mouth once daily. aspirin EC 81 mg oral tablet,delayed release (DR/EC) Sig: Take 81 mg by mouth once daily. atenolol 25 mg oral tablet Sig: Take 50 mg by mouth once daily. docusate sodium (STOOL SOFTENER ORAL) Sig: Take 200 mg by mouth. Equate brand per patient doxycycline hyclate 100 mg oral tablet Sig: Take 100 mg by mouth every twelve hours. (Pharmacist to substitute salt form as needed ) ergocalciferol (VITAMIN D2) 50,000 unit oral capsule Sig: Take 1 capsule by mouth every seven days. fentaNYL 12 mcg/hr transdermal patch Sig: Apply 1 patch to skin every seventy-two hours. Please remove old patch prior to placin g a new one. lurasidone (LATUDA) 20 mg oral tablet Sig: Take 40 mg by mouth once daily. magnesium oxide 400 mg oral tablet Sig: Take 400 mg by mouth once daily. nystatin 100,000 unit/gram topical powder Sig: Apply to affected area two times daily. Apply to candidal lesions until lesions have h ealed. Patient not taking: Reported on 05/05/2019 omeprazole 20 mg oral capsule,delayed release(DR/EC) Sig: Take 1 capsule by mouth once daily. Administer 30 to 60 minutes before meals phentermine 37.5 mg oral tablet Sig: Take 1 tablet by mouth once daily in the morning. Administer before breakfast. potassium chloride 20 mEq oral packet Sig: Take 20 mEq by mouth two times daily. pramipexole 0.125 mg oral tablet Sig: Take 0.125 mg by mouth. promethazine 25 mg oral tablet Sig: Take 0.5 tablets by mouth four times daily as needed for nausea/vomiting. Indications: Post-Operative Nausea and Vomiting spironolactone 50 mg oral tablet Sig: Take 50 mg by mouth once daily. thyroid (ARMOUR THYROID) 30 mg oral tablet tab Sig: Take 30 mg by mouth once daily. topiramate 50 mg oral tablet Sig: Take 1 tablet by mouth two times daily. May increase by 1 tab twice daily every 2 week s, as tolerated. Max dose is 2 tabs twice daily. torsemide 100 mg oral tablet Sig: Take 100 mg by mouth two times daily. Resume half dose for first week post opertative Facility-Administered Medications: None Allergies Allergen Reactions Amoxicillin Hives Benadrilina [Diphenhydramine Hcl] Hives and Throat Swelling / Closing Parlodel [Bromocriptine] Unknown Blood clots Penicillins Hives Zofran [Ondansetron Hcl (Pf)] Hives Family History Problem Relation Heart Attack Father Alcohol abuse Father Diabetes Mother Alcohol abuse Mother Alcohol/Drug Other Alcoholism in mother & father Hypertension Other M&F Asthma Other Father, brother, daughters Lung Disease Other Father Obesity Other M&F&Sister Diabetes Other Mother Arthritis Other M&F Autoimmune Disease Sister lupus Anesthesia problems Neg Hx Social History Socioeconomic History Marital status: Single [...] Not on file Tobacco Use Smoking status: Passive Smoke Exposure - Never Smoker Smokeless tobacco: Never Used Tobacco comment: former social smoker Substance and Sexual Activity Alcohol use: No Alcohol/week: 0.0 standard drinks Drug use: No Sexual activity: Not on file Lifestyle Physical activity: Days per week: Not on file Minutes per session: Not on file Stress: Not on file Relationships Social connections: Talks on phone: Not on file Gets together: Not on file Attends holiness service: Not on file Active member of club or organization: Not on file Attends meetings of clubs or organizations: Not on file Relationship status: Not on file Other Topics Concern Not on file Social History Narrative Updated 11/09/15 She lives in [place] with her mother and her sister (also her caregiver) lives in an apa rtment/duplex below. She has 2 grandchildren (age 4 and 7) who live with her daughter and son-in-law Her boyfriend lives in [place] HFpEF, DM2, HTN, Sleep Apnea (unable to tolerate CPAP), Hypothyroidism, Severe Obesity ([facility] max weight 495 lbs) Last seen by [...] program here and refer her to our registered nurse cardiac telemetry who also has expertise in physical activity [...] are no prior exams available for comparison Review of Systems: ROS as noted. All other systems negative. BP 138/67 (BP Location: Left lower arm, Patient Position: Sitting) | Pulse 91 | Temp 36.6 C (97.9 F) (Oral) | Resp 16 | Ht 1.524 m (5') | Wt (!) 125.2 kg (276 lb) | SpO2 100 % | BMI 53.90 kg/m | BSA 2.3 m General: Acute distress, appears uncomfortable HEENT: NCAT Resp: Unlabored breathing on RA CV: Tachycardic, regular rhythm Abd: Soft, obese, old surgical incisions well healed, ventral hernia soft without any overl jaiden skin changes, appreciably TTP near her hernia especially at the inferior and left aspec t, hernia is soft to touch : Deferred Extremities: Warm Neuro: Alert and oriented Mental Status: Appropriate Data Pending CT abdomen pelvis 05/10/2019 No evidence of obstruction or bowel wall thickening. Assessment and Plan: Dylan Cristina is a 44 y.o. female with HTN, T2DM, AMARA, right HF, hypothyroidism, morbid obesity s/p laparoscopic anteocolic RYGB 03/01/2018, bipolar disorder, depression, anxiety, hi story of stroke/TIA, DVT, and multiple hernia repairs now with ventral hernia containing bow el who presents with worsening abdominal pain. Patient is currently afebrile and HDS. She is appreciably TTP near her hernia, however it is soft and there are no overlying skin changes . Patient was seen at an OSH 2 days for abdominal pain and CT abdomen pelvis did not show ob struction or bowel wall thickening. - NPO, NGT to LIWS - mIVFs - Agree with labs, including CBC, CMP, lactate and UA - CT abdomen pelvis with IV and PO contrast Neelam Owen, PGY2 [id number] I am aware of current clinical events. CT done in ED shows NO evidence of obstruction. SH e is passing flatus and stool. Emesis is essentially unchanged since the Bariatric procedur e (RYBG) done in May 2018. Labs are normal. We have no reason to do hernia repair emergent ly. She was in Plastics clinic and still wishes to have panneiculectomy. We will keep her scheduled in June. We will also see if Plastics will see her again. JONES TIWARI MD [facility] EMERGENCY DEPARTMENT [address] [facility] [place] [address] JONES TIWARI MD [facility] EMERGENCY DEPARTMENT [address] [facility] [place] [address] documented in this encounter Consult Notes Luca Goodman Jr., [facility] - 05/14/2019 2:25 AM PDTFormatting of this note might be different f rom the original. Pharmacy Services: Admission Medication Reconciliation Prior to Admission Medications: Prior to Admission Medications Prescriptions Last Dose Informant Patient Reported? Taking? ALPRAZolam 1 mg oral tablet Yes Yes Sig: Take 1 mg by mouth twice daily as needed. CALCIUM [id number]-GENIS ORAL 05/12/2019 at Unknown time Yes Yes Sig: Take 2 tablets by mouth two times daily. Ferrous Gluconate 324 mg total salt (36 mg elemental iron) oral tablet Within last 7 days a t Unknown time No Yes Sig: Take 1 tablet by mouth once daily. PARoxetine 40 mg oral tablet Yes Yes Sig: Take 40 mg by mouth once daily at bedtime. ascorbic acid (vitamin C) (VITAMIN C) 500 mg oral tablet 05/12/2019 at Unknown time No Yes Sig: Take 1 tablet by mouth once daily. aspirin EC 81 mg oral tablet,delayed release (DR/EC) 05/12/2019 at Unknown time Yes Yes Sig: Take 81 mg by mouth once daily. atenolol 50 mg oral tablet 05/12/2019 at Unknown time Yes Yes Sig: Take 50 mg by mouth once daily at bedtime. cyanocobalamin 1,000 mcg oral tablet Yes Yes Sig: Take 1,000 mcg by mouth once daily. docusate sodium (STOOL SOFTENER ORAL) 05/12/2019 at Unknown time Yes Yes Sig: Take 200 mg by mouth. Equate brand per patient doxycycline hyclate 100 mg oral tablet 05/13/2019 at Unknown time Yes Yes Sig: Take 100 mg by mouth every twelve hours. (Pharmacist to substitute salt form as needed ) ergocalciferol (VITAMIN D2) 50,000 unit oral capsule Within last 7 days at Unknown time No Yes Sig: Take 1 capsule by mouth every seven days. Patient taking differently: Take 50,000 Units by mouth every Thursday. fentaNYL 12 mcg/hr transdermal patch 05/12/2019 at Unknown time Yes Yes Sig: Apply 1 patch to skin every seventy-two hours. Please remove old patch prior to placin g a new one. loperamide 2 mg oral tablet Yes Yes Sig: Take 2 mg by mouth four times daily as needed for diarrhea. lurasidone (LATUDA) 20 mg oral tablet 05/12/2019 at Unknown time Yes Yes Sig: Take 40 mg by mouth once daily at bedtime. magnesium oxide 400 mg oral tablet Within last 7 days at Unknown time Yes Yes Sig: Take 400 mg by mouth two times daily. meclizine 12.5 mg oral tablet Yes Yes Sig: Take 12.5 mg by mouth twice daily as needed (dizziness/vertigo). metoclopramide HCl 10 mg oral tablet Yes Yes Sig: Take 10 mg by mouth every six hours as needed for nausea/vomiting. multivitamin oral tablet Yes Yes Sig: Take 1 tablet by mouth once daily. multivitamin with minerals (HAIR,SKIN AND NAILS ORAL) Yes Yes Sig: Take 1 tablet by mouth once daily. phentermine 37.5 mg oral tablet 05/12/2019 at Unknown time No Yes Sig: Take 1 tablet by mouth once daily in the morning. Administer before breakfast. potassium chloride 20 mEq oral packet 05/12/2019 at Unknown time Yes Yes Sig: Take 40 mEq by mouth two times daily. pramipexole 0.125 mg oral tablet 05/12/2019 at Unknown time Yes Yes Sig: Take 0.25 mg by mouth once daily at bedtime. promethazine 25 mg oral tablet 05/12/2019 at Unknown time No Yes Sig: Take 0.5 tablets by mouth four times daily as needed for nausea/vomiting. Indications: Post-Operative Nausea and Vomiting spironolactone 50 mg oral tablet 05/12/2019 at Unknown time Yes Yes Sig: Take 50 mg by mouth once daily. thyroid (ARMOUR THYROID) 30 mg oral tablet tab 05/12/2019 at Unknown time Yes Yes Sig: Take 30 mg by mouth once daily at bedtime. topiramate 50 mg oral tablet 05/12/2019 at Unknown time No Yes Sig: Take 1 tablet by mouth two times daily. May increase by 1 tab twice daily every 2 week s, as tolerated. Max dose is 2 tabs twice daily. Patient taking differently: Take 100 mg by mouth two times daily. May increase by 1 tab twi ce daily every 2 weeks, as tolerated. Max dose is 2 tabs twice daily. Indications: [facility] Tremor torsemide 100 mg oral tablet 05/12/2019 at Unknown time Yes Yes Sig: Take 100 mg by mouth two times daily. Resume half dose for first week post opertative The above list reflects the patient's prior to admission medication use and is complete and accurate to the best of my knowledge. Source of Medication Information: Patient Reliability: Reliable All questions concerning medications, including OTC and herbal products, were addressed. For questions regarding this information please contact pharmacy, pager [phone] Luca Goodman Jr., PharmD, BCPS, BCCCP Clinical Pharmacist [facility] Pharmacy Services documented in this encounter ED Notes Jamshid Martinez RN - 05/14/2019 3:49 PM PDTRN Discharge Note: Condition at time of discharge: Patient A&O x4, vital signs stable, appears in no acute di stress and pain reported as tolerable. Patient ambulating with steady gait. Discharge instructions: Patient provided discharge instructions. Understanding of instruct ions is evidenced by review of follow-up plan, voiced understanding of plan of care and ques tions asked and answered. Written discharge instructions provided and reviewed. Prescriptio n filled at pharmacy and given to patient. Destination: Patient discharged to home via taxi with self. Education provided to the patient/family: When to return to the ED, f/u with PCP, surgery w ill call patient to schedule procedure, and Rx review. Jamshid Graves RN - 05/14/2019 3:28 PM PDTFirst call paged for Oxy script for patient. Electronically sign ed by Jamshid Martinez RN at 05/14/2019 3:29 PM Jamshid Graves RN - 05/14/2019 1:3 4 PM PDTLunch ordered TPrJamshid cason RN - 05/14/2019 8:55 AM PDTPatient vomited up PO compazine. Will medica te per SEP. Patient also reporting increased severe pain d/t vomiting. Will also medicate pe r SEP for pain. Jamshid Pulido RN - 05/14/2019 8:42 AM PDTPatient reporting nausea, dry heaving after eat ing breakfast. Will medicate per SEP and give scheduled meds once nausea is under control. E lectronically signed by Jamshid Martinez RN at 05/14/2019 8:51 AM Jamshid Graves RN - 05/14/2019 8:31 AM PDTPatient requesting to have medications after she has eaten. Food d elivered. Bianca Dodge RN - 05/14/2019 7:24 AM PDTReport given to KELSIE Cancino Madonna Dodge RN - 05/14/2019 6:41 AM PDTED Vida swartz Handoff Report Primary focus of stay: Ventral hernia without obstruction, N/V Pertinent physical findings (Focused assessment, Pain/discomfort, Neuro, Cards/tele and Res p assessment): [place] with increasing pain, at which poi nt pt was brought to the ED. Pt had BM on 05/12, but has been having increasing nausea and d ecreased PO intake. Pt has had dx hernia for the last 14 weeks. Pt has large bulge present in midline abdomen, and reports feeling a pressure pain in the a ssociated area. Pt also reports abdominal pain throughout the whole abdomen. Pt c/o nausea, with no episodes of vomiting since in the department. Pt has hx of severe anxiety and reports 'shoving a nurse.' Pt has been cooperative and calm with all care, but has needed emotional support during her stay in the ED. Pt also takes xa nax at baseline for anxiety. PMHx: gastric bypass surgery, obesity, osteoarthritis, abdominal hernias, cholecystectomy, appendectomy Patient-specific pain target: 6 Patient concern (Primary reason for coming to the ED): Abdominal pain, decreased PO intake Psych/social assessment & interventions: Intermittent episodes of anxiety, from [place] Safety risks: fall risk Isolation status None Legal status: Voluntary Medical/psychosocial stability: Moderately Stable Transition concerns as related to stability: none Alarm parameter changes: none Care R/T comfort, hygiene, education (i.e., activity, environment, toileting, skin, ADLs, e tc.): Sleep promotion, pt able to tend to ADLs independently Orders to follow up on: Pt NPO, pain management, morning medications Anticipated/pending procedures or disposition: Symptom management Education provided to the patient/family: N/V management, pain management, fall prevention Madonna Dodge RN - 05/14/2019 4:36 AM PDTPt reports feeling 'like I have low blood sugar' at this time. Pt reports that she is getting light headed when she is getting up to the bathroom. BP stable, CBG WNL. Pt reports she will notify RN if anything changes. MF continued at this time. Elect ronically signed by Madonna Vigil RN at 05/14/2019 4:37 AM Madonna Dodge RN - 3:49 AM MD Rosa called RN and suggested paging [facility]. [facility] pag ed at this time. Madonna Felix RN - 05/14/2019 3:46 AM PDTPt requesting sleep something to help her sleep. P t tearful at this time stating that she hasn't been able to sleep for the last couple of wee ks. Curt Caldwell MD regarding sleep: "Pt Dylanirma Cristina ([id number]) ED Rm 32: Pt requesting sleep aid, but reports melatonin does no t work for her. Please also sign up for first call. KELSIE Sotelo [id number]"Electronically signed by Madonna Vigil RN at 2018 3:48 AM Leora Salazar RN - 05/14/2019 1:52 AM PDTPatient reporting she is very an xious, states she doesn't know anyone in [place] and all her [place]. Patient given scheduled xanax per inpatient orders and encouraged to rest. Patient offered hospital bed but patient refused, given pillow. ED Pharmacist now at bedside verifying home medication with pt. Madonna Dodge RN - 05/14/2019 12:45 AM PDTPt req uesting to get some sleep at this time. Pt states that he pain in manageable right now and t hat she will call when she needs another dose of pain medication. Pt appears to be in NAD ae b equal, unlabored rise and fall of the chest present with respirations. Lighting dimmed and RN attempted to decrease stimulation to promote therapeutic sleep at this time. Pt denies a ny needs at this time. P Madonna Hurtado RN - 05/13/2019 10:51 PM PDTPt up to bathroom independently at this time . Pt able to provide perineal and perianal care independently. Madonna Dodge RN - 05/13/2019 10:10 PM MD Taryn aware of pts continued nausea at this time. Awaiting new orders. Madonna Dodge RN - 05/13/2019 9:10 PM MD Taryn aware of pts continued nausea at this time. Awaiting new orders at this time. El ectronically signed by Madonna Vigil RN at 05/13/2019 10:13 PM Madonna Dodge RN - 05/13/2019 8:45 PM PDTWhen explaining the need for NG tube and the process, pt reported to RN that she has extreme anxiety, which has led her to 'shove a nurse twice,' in the passed. Pt states that she takes xanax at home for anxiety. MD aware at this time of pts anxiety and continued nausea. Plan to get reads on CT scan, and then have plan for NG tube and medicati on. adonna Vigil RN - 05/13/2019 8:[address] Electronically signed by Madonna Vigil RN at 05/13 8:18 PM PDTMadonna Vigil RN - 05/13/2019 7:27 PM PDTI have assumed care of this pt at this time. Pt here from [facility] appointment today for incarcerated hernia wi th no BM or gas today. Pt to have CT scan once able to tolerate PO intake. Electronically si gned by Madonna Vigil RN at 05/13/2019 7:28 PM PDTMary Chirinos RN - 05/13/2019 7:27 PM PDTI have relinquished care of this patient. RN Hand-off to KELSIE [place] in ED osemanuel Joe MD - 05/13/2019 7:25 PM PDT ED Shared Provider Note, co-authored by Christian Moser MD and JOSEMANUEL JOE MD: KEI Cristina is a 44 year old female with past medical history significant for obes ity, HTN, osteoarthritis, Nilesh-en-Y gastric bypass in 2018, abdominal hernias, cholecystecto my, and appendectomy who presents with worsening abdominal pain, nausea, and constipation. Patient reports feeling unwell for the last 14 weeks necessitating a PICC line placement in her RUE and IV fluids with IV Phenergan MWF. Patient reports worsening abdominal pain in la st few days and hasn't been passing flatus. [facility] [place] referred her here for further evaluation. Reports low grade temperat ures (Tmax 100), chills, nausea, and anorexia. Currently on menstrual cycle. Normally has loose bowel movements, but states she has been constipated for the last few days. Denies ch est pain, difficulty breathing, vaginal discharge, or urinary symptoms. PCP: Kenyatta Hylton MD Patient Active Problem List Diagnosis Date [...] 04/14/2013 Priority: 3 Hypoventilation associated with obesity ([facility]) 06/16/2013 Priority: 4 AMARA (obstructive sleep apnea) 04/14/2013 Priority: 4 Overview Note: Cannot tolerate CPAP Severe Morbid obesity ([facility]), BMI 88 11/12/2012 Priority: 4 Overview Note: Lifetime max: 495 lbs Phentermine started Type 2 diabetes mellitus ([facility]) 04/14/2013 Priority: 5 Iron deficiency anemia due to chronic blood loss 11/11/2015 Priority: 6 Overview Note: Ferritin 18 on 10/2015 Hypoalbuminemia (no proteinuria, need to rule out synthetic, nutrition, loss) 6 Priority: 6 Hypothyroidism 08/28/2014 Priority: 8 Hypothyroidism History of Nilesh-en-Y gastric bypass 03/10/2018 Impaired intestinal absorption 03/10/2018 Morbid obesity with BMI of 70 and over, adult (HCC) 02/02/2017 Chronic diastolic heart failure (HCC) 02/02/2017 Immobility 02/02/2017 Severe muscle deconditioning 02/02/2017 Personal history of DVT (deep vein thrombosis) 02/02/2017 History of pulmonary embolism 02/02/2017 Benign essential HTN 02/02/2017 Diabetes mellitus type 2 without retinopathy (HCC) 02/02/2017 Hyperlipidemia 02/02/2017 Ventral hernia without obstruction or gangrene 02/02/2017 Lipoedema 11/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 Candidal intertrigo 11/09/2015 Right heart failure (HCC) 11/07/2015 Overview Note: TTE 11/07/2015 The interpretation [...] syndrome) 06/16/2013 Ventral hernia 06/16/2013 Hernia 11/05/2012 Past Medical History Diagnosis Date Neck pain Insomnia Allergic rhinitis Lymphedema Diverticulitis of colon Hemorrhoids Osteoarthritis of knee TIA (transient ischemic attack) due to Bromocriptine Myalgia and myositis Bipolar disorder ([facility]) Depression Anemia Chronic wound infection of abdomen from 2010 Morbid obesity with body mass index of 70 and over in adult ([facility]) Incisional hernia, incarcerated 2012 Hernia of abdominal wall Dizziness Numbness Nausea Abdominal pain Shortness of breath Palpitations Kidney stone Leaking of urine Irregular periods Leg sore Anxiety Sleep apnea Hypothyroidism Past Surgical History Procedure Date Tonsillectomy and adenoidectomy Appendectomy, open 2010 Umbilical hernia repair 2010 Treatment of ankle fracture with screws remaining Incision and drainage of wound abscess x2 midline transverse wound s/p open appendectomy 2010 Ventral hernia repair 10/2012 Dr. Andie Biran Incisional hernia repair 03/01/2015 [facility]/ Dr. Cantu. Primary fascial closure and scar excision Lap gastric byp, and nilesh-en-y gastroenterostomy w/ nilesh limb 150 cm or less 03/01/[facility]olecyst[facility], laparoscopic Medications Prior to Admission Medications Prescriptions Last Dose Informant Patient Reported? Taking? ALPRAZolam 1 mg oral tablet Yes No Sig: Take 1 mg by mouth two times daily. CALCIUM [id number] ORAL 05/12/2019 at Unknown time Yes Yes Sig: Take 2 tablets by mouth two times daily. CYANOCOBALAMIN (VITAMIN B-12) INJ Unknown at Unknown time Yes No Sig: by injection route every thirty days. FA/mv,Ca,iron,min/lycopene/lut (MULTIVITAL ORAL) 05/12/2019 at Unknown time Yes Yes Sig: Take by mouth. Ferrous Gluconate 324 mg total salt (36 mg elemental iron) oral tablet Within last 7 days a t Unknown time No Yes Sig: Take 1 tablet by mouth once daily. PARoxetine 10 mg oral tablet Unknown at Unknown time Yes No Sig: Take 40 mg by mouth once daily. ascorbic acid (vitamin C) (VITAMIN C) 500 mg oral tablet 05/12/2019 at Unknown time No Yes Sig: Take 1 tablet by mouth once daily. aspirin EC 81 mg oral tablet,delayed release (DR/EC) 05/12/2019 at Unknown time Yes Yes Sig: Take 81 mg by mouth once daily. atenolol 25 mg oral tablet 05/12/2019 at Unknown time Yes Yes Sig: Take 50 mg by mouth once daily. docusate sodium (STOOL SOFTENER ORAL) 05/12/2019 at Unknown time Yes Yes Sig: Take 200 mg by mouth. Equate brand per patient doxycycline hyclate 100 mg oral tablet 05/13/2019 at Unknown time Yes Yes Sig: Take 100 mg by mouth every twelve hours. (Pharmacist to substitute salt form as needed ) ergocalciferol (VITAMIN D2) 50,000 unit oral capsule Within last 7 days at Unknown time No Yes Sig: Take 1 capsule by mouth every seven days. fentaNYL 12 mcg/hr transdermal patch 05/12/2019 at Unknown time Yes Yes Sig: Apply 1 patch to skin every seventy-two hours. Please remove old patch prior to placin g a new one. lurasidone (LATUDA) 20 mg oral tablet 05/12/2019 at Unknown time Yes Yes Sig: Take 40 mg by mouth once daily. magnesium oxide 400 mg oral tablet Within last 7 days at Unknown time Yes Yes Sig: Take 400 mg by mouth once daily. nystatin 100,000 unit/gram topical powder Unknown at Unknown time No No Sig: Apply to affected area two times daily. Apply to candidal lesions until lesions have h ealed. Patient not taking: Reported on 05/05/2019 omeprazole 20 mg oral capsule,delayed release(DR/EC) Unknown at Unknown time No No Sig: Take 1 capsule by mouth once daily. Administer 30 to 60 minutes before meals phentermine 37.5 mg oral tablet 05/12/2019 at Unknown time No Yes Sig: Take 1 tablet by mouth once daily in the morning. Administer before breakfast. potassium chloride 20 mEq oral packet 05/12/2019 at Unknown time Yes Yes Sig: Take 20 mEq by mouth two times daily. pramipexole 0.125 mg oral tablet 05/12/2019 at Unknown time Yes Yes Sig: Take 0.125 mg by mouth. promethazine 25 mg oral tablet 05/12/2019 at Unknown time No Yes Sig: Take 0.5 tablets by mouth four times daily as needed for nausea/vomiting. Indications: Post-Operative Nausea and Vomiting spironolactone 50 mg oral tablet 05/12/2019 at Unknown time Yes Yes Sig: Take 50 mg by mouth once daily. thyroid (ARMOUR THYROID) 30 mg oral tablet tab 05/12/2019 at Unknown time Yes Yes Sig: Take 30 mg by mouth once daily. topiramate 50 mg oral tablet 05/12/2019 at Unknown time No Yes Sig: Take 1 tablet by mouth two times daily. May increase by 1 tab twice daily every 2 week s, as tolerated. Max dose is 2 tabs twice daily. torsemide 100 mg oral tablet 05/12/2019 at Unknown time Yes Yes Sig: Take 100 mg by mouth two times daily. Resume half dose for first week post opertative Facility-Administered Medications: None Allergies Allergen Reactions Amoxicillin Hives Benadrilina [Diphenhydramine Hcl] Hives and Throat Swelling / Closing Parlodel [Bromocriptine] Unknown Blood clots Penicillins Hives Zofran [Ondansetron Hcl (Pf)] Hives Social History reports that she has been passively using cigarettes. her reports that her does not curre ntly drink alcohol or use drugs. Family History Problem Relation Heart Attack Father Alcohol abuse Father Diabetes Mother Alcohol abuse Mother Alcohol/Drug Other Alcoholism in mother & father Hypertension Other M&F Asthma Other Father, brother, daughters Lung Disease Other Father Obesity Other M&F&Sister Diabetes Other Mother Arthritis Other M&F Autoimmune Disease Sister lupus Anesthesia problems Neg Hx Review of Systems Complete ROS performed and negative except as noted in HPI. ED Triage Vitals BP Temp Heart Rate Pulse - Plethysmograph Resp SpO2 05/13/19 1726 05/13/19 1728 05/13/19 1726 -- 05/13/19 1726 05/13/19 1726 138/67 36.6 C 91 16 100 % Physical Exam Constitutional: She is oriented to person, place, and time. She appears well-developed and well-nourished. She appears distressed. Appears uncomfortable HENT: Head: Normocephalic and atraumatic. Nose: Nose normal. Eyes: Conjunctivae and EOM are normal. Right eye exhibits no discharge. Left eye exhibits n o discharge. No scleral icterus. Neck: Normal range of motion. Neck supple. Cardiovascular: Normal rate, regular rhythm and intact distal pulses. Pulmonary/Chest: Effort normal and breath sounds normal. No respiratory distress. Abdominal: Soft. There is tenderness. There is guarding. Obese, soft, decrease bowel sounds, + right lower ventral hernia with tenderness, but reduc ible + voluntary guarding, Musculoskeletal: Normal range of motion. General: No deformity. Comments: +RUQ with PICC line in place without erythema or tenderness Neurological: She is alert and oriented to person, place, and time. Skin: Skin is warm and dry. She is not diaphoretic. Psychiatric: She has a normal mood and affect. Her behavior is normal. Nursing note and vitals reviewed. ED COURSE AND MEDICAL DECISION MAKING: Dylan Cristina is a 44 y.o. female presenting with concern for worsening abdominal pain, nausea, constipation, and decrease flatus, referred here for further evaluation. The vitals and physical exam were notable for the following: Vitals notable for being withi n normal limits exam notable for abdominal tenderness inferior to known ventral hernia, volu ntary guarding, no overlying skin changes and ventral hernia soft. A review of some of the patient s prior medical records was performed using chart review and Care Everywhere. Given the patient's history and exam, initial differential diagnosis includes but is not li mited to incarcerated hernia, strangulated hernia, bowel obstruction, bowel perforation, sym ptomatic ventral hernia, complication related to previous gastric bypass surgery, or pregnan cy related complications. Based on differential ordered CBC, CMP, lipase, serum hCG, CT abdomen and pelvis with IV an d p.o. contrast for evaluation. Ordered fluids, Dilaudid, reglan for initial symptom contro l. Also given patient is established with [facility] surgery they are already at bedside consult ing prior to my initial evaluation. Laboratory, EKG, and imaging results were reviewed and interpreted, and notable for the edin puri: Lab Results Results for orders placed or performed during the hospital encounter of 05/13/19 COMPLETE METABOLIC SET (NA,K,CL,CO2,BUN,CREAT,GLUC,CA,AST,ALT,BILI TOTAL,ALK PHOS,ALB,PROT TOTAL) Result Value Ref Range GLUCOSE, PLASMA (LAB) 91 70 - 99 mg/dL BUN, PLASMA (LAB) 10 6 - 20 mg/dL CREATININE PLASMA (LAB) 0.68 0.60 - 1.10 mg/dL EGFR - AUSTRALIAN >60 >60 mL/min EGFR NON -AUSTRALIAN >60 >60 mL/min SODIUM, PLASMA (LAB) 141 136 - 145 mmol/L POTASSIUM, PLASMA (LAB) 3.8 3.4 - 5.0 mmol/L CHLORIDE, PLASMA (LAB) 116 (H) 97 - 108 mmol/L TOTAL CO2, PLASMA (LAB) 18 (L) 21 - 32 mmol/L CALCIUM, PLASMA (LAB) 8.5 (L) 8.6 - 10.2 mg/dL CALCIUM(ALB CORRECTED) 9.2 8.6 - 10.2 mg/dL BILIRUBIN TOTAL 0.4 0.3 - 1.2 mg/dL TOTAL PROTEIN, PLASMA (LAB) 6.9 6.4 - 8.2 g/dL ALBUMIN, PLASMA (LAB) 3.1 (L) 3.5 - 4.7 g/dL ALK PHOS 125 (H) 42 - 98 U/L AST(SGOT) 15 <=41 U/L ALT (SGPT) 18 <=60 U/L ANION GAP 7 4 - 11 mmol/L ANION GAP(ALB CORRECTED) 9 4 - 11 mmol/L POTASSIUM CMNT No Hemo BILI T CMNT No Hemo AST CMNT No Hemo LIPASE, PLASMA Result Value Ref Range LIPASE (LAB) 104 (L) 152 - 353 U/L HCG BETA QUANT, PLASMA Result Value Ref Range HCG BETA, PLASMA <1 No reference ranges have been established mIU/mL CBC AND AUTO DIFF Result Value Ref Range WHITE CELL COUNT 12.53 (H) 3.50 - 10.80 K/cu mm RED CELL COUNT 4.50 4.00 - 5.20 M/cu mm HEMOGLOBIN 13.6 12.0 - 16.0 g/dL HEMATOCRIT 42.5 36.0 - 46.0 % MCV 94.4 80.0 - 100.0 fL MCHC 32.0 32.0 - 36.0 g/dL RDW SD 51.0 (H) 35.1 - 46.3 fL PLATELET COUNT 266 150 - 400 K/cu mm MPV 9.8 9.7 - 12.3 fL NRBC% 0.0 0.0 - 0.3 % NRBC# 0.00 0.00 - 0.02 K/cu mm NEUTROPHIL % 50.6 50.0 - 70.0 % LYMPHOCYTE % 36.8 18.0 - 42.0 % MONOCYTE % 7.8 3.5 - 9.0 % EOS % 3.8 (H) 1.0 - 3.0 % BASO % 0.6 0.0 - 2.0 % IG% 0.4 0.0 - 1.0 % NEUTROPHIL # 6.35 1.80 - 7.70 K/cu mm LYMPHOCYTE # 4.61 1.00 - 4.80 K/cu mm MONOCYTE # 0.98 (H) 0.10 - 0.90 K/cu mm EOS # 0.47 0.00 - 0.50 K/cu mm BASO # 0.07 0.00 - 0.10 K/cu mm IG# 0.05 0.00 - 0.10 K/cu mm Imaging Results (last 24 hours) CT Ed Abdomen And Pelvis W Iv Contrast And Positive Oral Contrast (oral = Iohexol) Result Date: 05/13/2019 EXAM: CT of the abdomen and pelvis WITH intravenous contrast. HISTORY: Concern for incarce rated hernia and obstruction. Gastric bypass in 2018 with previous abdominal hernias. Worsen ing abdominal pain, nausea and constipation for the past couple of months. COMPARISON: Out side abdomen and pelvis CT 05/10/2019, 03/08/2019 TECHNIQUE: CT of the abdomen and pelvis w ith non-ionic iodinated intravenous contrast. Coronal and sagittal reformats were generated and reviewed. FINDINGS: LOWER THORAX: No pleural effusion or suspicious pulmonary nodule. M inimal aortic valve calcifications are partially visualized. LIVER: Hepatomegaly, measuring 21 cm in craniocaudal length, otherwise unremarkable. BILIARY: Changes after cholecystectom y. The common bile duct measures 12 mm in diameter, unchanged since remote priors. PANCREAS: Unremarkable. SPLEEN: Unremarkable. ADRENALS: Unremarkable. KIDNEYS/URETERS: Nonobstructin g 10 mm left upper pole stone. No hydronephrosis. The right kidney is unremarkable. PELVIC O RGANS/BLADDER: An intrauterine device is present. GI TRACT: Postoperative changes after Rou x-en-Y gastric bypass with a small hiatal hernia. Redundant sigmoid colon. Enteric contrast is visible within multiple loops of nondilated small bowel. No obstruction. PERITONEUM: Int erval development of mesenteric stranding with a halo of fat surrounding the vessels and mes enteric nodes. Redemonstration of a ventral wall abdominal hernia containing a portion of th e transverse colon measuring 10 x 5 cm (100). There is an additional small ventral hernia measuring about 3 cm containing a nondilated loop of small bowel (131). LYMPH NODES: Mult iple prominent left mid abdomen lymph nodes, likely reactive. VESSELS: Unremarkable. BONES AND SOFT TISSUES: No suspicious osseous lesion. Anterolisthesis of L4 on L5 measuring 4 mm. Mild multilevel discogenic degeneration of the thoracolumbar spine, most prominent at L5-S1. Postoperative changes of the ventral abdominal wall (). IMPRESSION: Findings most con sistent with mesenteric panniculitis. No internal hernia or evidence of obstruction. Comple x multiple ventral hernias without complications. These results were discussed with Dr. Me florez in the ED on 05/13/2019 8:54 PM by Alexx Gordon MD. I have personally reviewed the i mages and, if necessary, edited the report. I agree with the report as now presented. Final signature: Mae Fierro MD 05/13/2019 9:04 PM Preliminary: Alexx Gordon MD Dictat ion initiated: Alexx Gordon MD 05/13/2019 8:32 PM Work-up notable for unremarkable blood work, negative for , CT without any signs o f obstruction or strangulated hernia but does show mesenteric adenitis. Patient is quite sy mptomatic requiring multiple doses of Dilaudid, Xanax, Reglan, Phenergan, and fluids for sym ptom control. Given this green surgery recommended admission to their service for continued symptom management. ED Medication Administration from 05/13/2019 1713 to 05/14/2019 0240 Date/Time Order Dose Route Action 05/14/2019 0128 ALPRAZolam (XANAX) tablet 1 mg 1 mg oral Given 05/13/2019 1951 HYDROmorphone (DILAUDID) injection 0.5 mg 0.5 mg intravenous Given 05/13/20192050 HYDROmorphone (DILAUDID) injection 0.5 mg 0.5 mg intravenous Given 05/13/20192214 HYDROmorphone (DILAUDID) injection 0.5 mg 0.5 mg intravenous Given 05/13/20192356 HYDROmorphone (DILAUDID) injection 0.5 mg 0.5 mg intravenous Given 05/14/2019 012 HYDROmorphone (DILAUDID) injection 0.5 mg 0.5 mg intravenous Given 05/13/20191950 iohexol (OMNIPAQUE) 300 mg iodine/mL 30 mL 30 mL oral Given 05/13/20192024 iohexol (OMNIPAQUE) 350 mg iodine/mL injection 100 mL 100 mL intravenous I V Push 05/14/2019 0149 lactated ringers IV 75 mL/hr intravenous New Bag 05/13/20191950 metoclopramide HCl (REGLAN) injection 10 mg 10 mg intravenous Given 05/13/2019 231 promethazine (PHENERGAN) 12.5 mg in NaCl 0.9 % (NS) IV 12.5 mg intravenous Given 05/13/20191950 sodium chloride 0.9 % (NS) IV infusion 1,000 mL intravenous New Bag 05/13/20192357 sodium chloride 0.9 % (NS) IV infusion 1,000 mL intravenous New Bag IMPRESSION: I88.0 Mesenteric adenitis R11.2 Nausea and vomiting, intractability of vomiting not specified, unspecified vomiting t ype R10.9 Abdominal pain, unspecified abdominal location K43.9 Ventral hernia without obstruction or gangrene 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 Moser. I performed and confirmed the de la cruz portions of the service. This note was completed by both resident and myself using the [employer] share function. I agree with t amaury documentation, findings, and plan of care. In this note documentation noting the patient's drug/alcohol use may be incorrect. Review p atient's history. HIM Admin 09/23/19 0850 ary Chirinos R N - 05/13/2019 7:15 PM PDTED MD Joe at now. Pt wanting something for pain.Electron ically signed by Mary Chirinos RN at 05/13/2019 7:15 PM PDTMary Chirinos RN - 05/13/20 19 5:43 PM PDTGreen Surgery at to talk with pt. Stating pt to get an abdominal CT and N GT, still awaiting ED MD burgess. Per review of referral note pt has known incarcerated hernia . Per pt report pt has not been passing any gas or has had a BM today, and usually has buffer chrome ela diarrhea. Mary Gong RN - 05/13/2019 5:19 PM PDTPt BIBA, sent [facility]. Pt arrived from [facility] by medical transport today to have a doctor's appointment at clinic, and pt was noted to have severe abdominal pain which has increases steadily since PC P in [place] gave pt a fentanyl patch. Staff at clinic noted pt with multiple abdominal h ernias which is probably the cause of abdominal pain. Pt is sent here for hernia repair emerson jerrica. Pt states seen at a pain clinic in the [facility] and was prescribed fentanyl patch from there, dose is 12.5mcg, patch was placed yesterday behind R ear, patch intact now.Electronically s igned by Mary Chirinos RN at 05/13/2019 5:26 PM PDTdocumented in this encounter Miscellaneous Notes ED Teaching Notes - Josemanuel Joe MD - 05/14/2019 12:53 AM DEANA JOE MD, Faculty Note: I saw and evaluated the patient and discussed the diagnosis, management, and interpretation of results with the resident, Dr. Moser. I performed and confirmed the de la cruz portions of the service. I have reviewed and agree with the documentation in the provider note. [facility] - Trell Ash - 05/13/2019 5:00 PM [id number] 44yof jin abdullahi MD 124/62 99% ra domonique 5Edasia buenrostro signed by Trell Starks at 05/13/2019 5:00 PM PDTTransfer Note - Cyndi Paulino PA-C - 05/13/2019 4:25 PM PDTEmergency Medicine Referral Note Referring Provider Name: Dr. Owen Referring Provider Specialty/Clinic: [facility] Surg [facility] Best Contact Number: pager Callback required?: yes Provider aware that we are on Ambulance divert. Relevant Past Medical History HTN, CVA, mult hernias, known incarcerated bowel in hernia 44 year old female presenting with abdominal pain. Worse for 2 days. Not passing gas. No BM Decreased appetite with N/V Decreased urinary output. Seen at [facility] ED a days ago Illness Severity: Watcher Abd hernia soft but severely tender. Plan, Recommendations and Disposition - CBC, CMP, LA - CT AP with IV/PO contrast (please expedite) - Will get records from [place] - [facility] green surg (or page [phone]) - Dr. Tiwari requesting NGT and NPO Mode of Transportation EMS Provider aware that we are on Ambulance divert. Cyndi Paulino PA-C a [facility] - Teresa Robledo - 05/13/2019 4:24 PM PDTAbdo pain Connected to Tonya (ED REF) Electronically s igned by Teresa Enrique at 05/13/2019 4:25 PM PDTdocumented in this encounter Plan of Treatment +--------+ + + + + | Date | Type | Specialty | Care Team | Description | +--------+ + + + + | 04/04/ | Telephone-S | Surgery | Orquidea Cristobal, | | | 2019 | sherrill | | BE[employer] [address] | | | | | | [place], [place] | | | | | | [address] | | | | | | [phone] | | | | | | | | +--------+ + + + + documented as of this encounter Procedures + +--------+ + + + | Procedure Name | Priori | Date/Time | Associated Diagnosis | Comments | | | ty | | | | + +--------+ + + + | CAPILLARY BLOOD | Routin | 05/14/2019 | Mesenteric | Results for this | | GLUCOSE (NO CHG), | e | 4:35 AM | adenitis | procedure are in the | | POC | | PDT | | results section. | + +--------+ + + + | CBC (HEMOGRAM) ONLY | Urgent | 05/14/2019 | | Results for this | | | | 4:33 AM | | procedure are in the | | | | PDT | | results section. | + +--------+ + + + | COMPLETE METABOLIC | Urgent | 05/14/2019 | | Results for this | | SET | | 4:33 AM | | procedure are in the | | (NA,K,CL,CO2,BUN,CRE | | PDT | | results section. | | AT,GLUC,CA,AST,ALT,B | | | | | | MARGIE TOTAL,ALK | | | | | | PHOS,ALB,PROT TOTAL) | | | | | + +--------+ + + + | CBC ONLY | Urgent | 05/14/2019 | | Results for this | | | | 4:33 AM | | procedure are in the | | | | PDT | | results section. | + +--------+ + + + | CT ED ABDOMEN AND | Urgent | 05/13/2019 | | Results for this | | PELVIS W IV CONTRAST | | 8:25 PM | | procedure are in the | | AND POSITIVE ORAL | | PDT | | results section. | | CONTRAST (ORAL = | | | | | | IOHEXOL) | | | | | + +--------+ + + + | CBC AND AUTO DIFF | Urgent | 05/13/2019 | | Results for this | | | | 6:06 PM | | procedure are in the | | | | PDT | | results section. | + +--------+ + + + | CBC, WITH | Urgent | 05/13/2019 | | Results for this | | DIFFERENTIAL | | 6:06 PM | | procedure are in the | | | | PDT | | results section. | + +--------+ + + + | COMPLETE METABOLIC | Urgent | 05/13/2019 | | Results for this | | SET | | 6:06 PM | | procedure are in the | | (NA,K,CL,CO2,BUN,CRE | | PDT | | results section. | | AT,GLUC,CA,AST,ALT,B | | | | | | MARGIE TOTAL,ALK | | | | | | PHOS,ALB,PROT TOTAL) | | | | | + +--------+ + + + | LIPASE, PLASMA | Urgent | 05/13/2019 | | Results for this | | | | 6:06 PM | | procedure are in the | | | | PDT | | results section. | + +--------+ + + + | HCG BETA QUANT, | Urgent | 05/13/2019 | | Results for this | | PLASMA | | 6:06 PM | | procedure are in the | | | | PDT | | results section. | + +--------+ + + + | ED INFORMATION | Routin | 05/13/2019 | | Results for this | | EXCHANGE | e | 5:14 PM | | procedure are in the | | | | PDT | | results section. | + +--------+ + + + documented in this encounter Results CAPILLARY BLOOD GLUCOSE (NO CHG), POC (05/14/2019 4:35 AM PDT) + +-------+ + + + | Component | Value | Ref Range | Performed | Pathologist | | | | | At | Signature | + +-------+ + + + | BLOOD | 88 | 70 - 99 mg/dL | [facility] [...] [facility] | [address] | [place], [place] | | | [place] [facility] | [facility] | [address] | | | TESTS | | | | + + + + + CBC (HEMOGRAM) ONLY (05/14/2019 4:33 AM PDT) + + + + + + | Component | Value | Ref Range | Performed | Pathologist | | | | | At | Signature | + + + + + + | WHITE CELL | 10.72 | 3.50 - 10.80 | [facility] | | | COUNT | | K/cu mm | LABORATORY | | | | | | SERVICES, | | | | | | CORE | | + + + + + + | RED CELL | 4.25 | 4.00 - 5.20 | [facility] | | | COUNT | | M/cu mm | LABORATORY | | | | | | SERVICES, | | | | | | CORE | | + + + + + + | HEMOGLOBIN | 13.1 | 12.0 - 16.0 | [facility] | | | | | g/dL | LABORATORY | | | | | | SERVICES, | | | | | | CORE | | + + + + + + | HEMATOCRIT | 40.9 | 36.0 - 46.0 % | [facility] | | | | | | LABORATORY | | | | | | SERVICES, | | | | | | CORE | | + + + + + + | MCV | 96.2 | 80.0 - 100.0 fL | [facility] | | | | | | LABORATORY | | | | | | SERVICES, | | | | | | CORE | | + + + + + + | MCHC | 32.0 | 32.0 - 36.0 | [facility] | | | | | g/dL | LABORATORY | | | | | | SERVICES, | | | | | | CORE | | + + + + + + | RDW SD | 52.1 (H) | 35.1 - 46.3 fL | [facility] | | | | | | LABORATORY | | | | | | SERVICES, | | | | | | CORE | | + + + + + + | PLATELET | 244 | 150 - 400 K/cu | [facility] [...] [facility] | [address] | [place] [address] | | | SERVICES, CORE | [address] | | | + + + + + COMPLETE METABOLIC SET (NA,K,CL,CO2,BUN,CREAT,GLUC,CA,AST,ALT,BILI TOTAL,ALK PHOS,ALB,PROT TOTAL) (05/14/2019 4:33 AM PDT) + +---------+ + + + | Component | Value | Ref Range | Performed | Pathologist | | | | | At | Signature | + +---------+ + + + | GLUCOSE, | 90 | 70 - 99 mg/dL | [facility] [...] +---------+ + + + | CREATININE | 0.71 | 0.60 - 1.10 | [facility] | | | PLASMA | | mg/dL | LABORATORY | | | (LAB) | | | SERVICES, | | | | | | CORE | | + +---------+ + + + | EGFR | >60 | >60 mL/min | [facility] | | | - | | | LABORATORY | | | [facility]IAN | | | SERVICES, | | | [...] +---------+ + + + | POTASSIUM, | 4.3 | 3.4 - 5.0 | [facility] | | | PLASMA | | mmol/L | LABORATORY | | | (LAB) | | | SERVICES, | | | | | | CORE | | + +---------+ + + + | CHLORIDE, | 118 (H) | 97 - 108 mmol/L | [...] +---------+ + + + | CALCIUM(ALB | 9.4 | 8.6 - 10.2 | [...] +---------+ + + + | TOTAL | 6.5 | 6.4 - 8.2 g/dL | [facility] | | | PROTEIN, | | | LABORATORY | | | PLASMA | | | SERVICES, | | | (LAB) | | | CORE | | + +---------+ + + + | ALBUMIN, | 2.7 (L) | 3.5 - 4.7 g/dL | [facility] | | | PLASMA | | | LABORATORY | | | (LAB) | | | SERVICES, | | | | | | CORE | | + +---------+ + + + | ALK PHOS | 137 (H) | 42 - 98 U/L | [...] + + + | ALT (SGPT) | 24 | <=60 U/L | [facility] | | | | | | LABORATORY | | | | | | SERVICES, | | | | | | CORE | | + +---------+ + + + | ANION GAP | 4 | 4 - 11 mmol/L | [facility] | | | | | | LABORATORY | | | | | | SERVICES, | | | | | | CORE | | + +---------+ + + + | ANION | 7 | 4 - 11 mmol/L | [facility] [...] MDRD equation recommended by the National | [facility] | | Kidney Disease Education Program. Estimated [...] CENTER LAB[facility]ORY | [address] | [place] [address] | | | SERVICES, [facility] | [address] | | | + + + + + CT ED ABDOMEN AND PELVIS W IV CONTRAST AND POSITIVE ORAL CONTRAST (ORAL = IOHEXOL) (2018 8:25 PM PDT) + + | Specimen | + + | | + + + + + | Narrative | Performed At | + + + | EXAM: CT of the abdomen and pelvis WITH intravenous contrast. | [facility] | | HISTORY: Concern for incarcerated hernia and obstruction. Gastric | RADIOLOGY VOICE | | bypass in 2018 with previous abdominal hernias. Worsening abdominal | RECOGNITION 2 | | pain, nausea and constipation for the past couple of months. | | | COMPARISON: Outside abdomen and pelvis CT 05/10/2019, 03/08/2019 | | | TECHNIQUE: CT of the abdomen and pelvis with non-ionic iodinated | | | intravenous contrast. Coronal and sagittal reformats were generated | | | and reviewed. FINDINGS: LOWER THORAX: No pleural effusion or | | | suspicious pulmonary nodule. Minimal aortic valve calcifications are | | | partially visualized. LIVER: Hepatomegaly, measuring 21 cm in | | | craniocaudal length, otherwise unremarkable. BILIARY: Changes after | | | cholecystectomy. The common bile duct measures 12 mm in diameter, | | | unchanged since remote priors. PANCREAS: Unremarkable. SPLEEN: | | | Unremarkable. ADRENALS: Unremarkable. KIDNEYS/URETERS: | | | Nonobstructing 10 mm left upper pole stone. No hydronephrosis. The | | | right kidney is unremarkable. PELVIC ORGANS/BLADDER: An intrauterine | | | device is present. GI TRACT: Postoperative changes after Nilesh-en-Y | | | gastric bypass with a small hiatal hernia. Redundant sigmoid colon. | | | Enteric contrast is visible within multiple loops of nondilated small | | | bowel. No obstruction. PERITONEUM: Interval development of | | | mesenteric stranding with a halo of fat surrounding the vessels and | | | mesenteric nodes. Redemonstration of a ventral wall abdominal hernia | | | containing a portion of the transverse colon measuring 10 x 5 cm | | | (/100). There is an additional small ventral hernia measuring about 3 | | | cm containing a nondilated loop of small bowel (131). LYMPH | | | NODES: Multiple prominent left mid abdomen lymph nodes, likely | | | reactive. VESSELS: Unremarkable. BONES AND SOFT TISSUES: No | | | suspicious osseous lesion. Anterolisthesis of L4 on L5 measuring 4 mm. | | | Mild multilevel discogenic degeneration of the thoracolumbar spine, | | | most prominent at L5-S1. Postoperative changes of the ventral | | | abdominal wall (). 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 No internal hernia or evidence of | | | obstruction. Complex multiple ventral hernias without | | | complications. These results were discussed with Dr. Moser in the | | | ED on 05/13/2019 8:54 PM by Alexx Gordon MD. I have | | | personally reviewed the images and, if necessary, edited the report. I | | | agree with the report as now presented. Final signature: Mae Chang | | | MD Vadim 05/13/2019 9:04 PM Preliminary: Alexx Gordon MD | | | Dictation initiated: Alexx Gordon MD 05/13/2019 8:32 PM | | + + + + + | Procedure Note | + + | Service Account, Radiant Res In Interface - 05/13/2019 9:06 PM PDT EXAM: CT of the | | abdomen and pelvis WITH intravenous contrast. HISTORY: Concern for incarcerated hernia | | and obstruction. Gastric bypass in 2018 with previous abdominal hernias. Worsening | | abdominal pain, nausea and constipation for the past couple of months. COMPARISON: | | Outside abdomen and pelvis CT 05/10/2019, 03/08/2019 TECHNIQUE: CT of the abdomen and | | pelvis with non-ionic iodinated intravenous contrast. Coronal and sagittal reformats | | were generated and reviewed. FINDINGS:LOWER THORAX: No pleural effusion or suspicious | | pulmonary nodule. Minimal aortic valve calcifications are partially visualized. LIVER: | | Hepatomegaly, measuring 21 cm in craniocaudal length, otherwise unremarkable.BILIARY: | | Changes after cholecystectomy. The common bile duct measures 12 mm in diameter, | | unchanged since remote priors.PANCREAS: Unremarkable. SPLEEN: Unremarkable.ADRENALS: | | Unremarkable.KIDNEYS/URETERS: Nonobstructing 10 mm left upper pole stone. No | | hydronephrosis. The right kidney is unremarkable.PELVIC ORGANS/BLADDER: An intrauterine | | device is present. GI TRACT: Postoperative changes after Nilesh-en-Y gastric bypass with a | | small hiatal hernia. Redundant sigmoid colon. Enteric contrast is visible within | | multiple loops of nondilated small bowel. No obstruction. PERITONEUM: Interval | | development of mesenteric stranding with a halo of fat surrounding the vessels and | | mesenteric nodes. Redemonstration of a ventral wall abdominal hernia containing a | | portion of the transverse colon measuring 10 x 5 cm (100). There is an additional | | small ventral hernia measuring about 3 cm containing a nondilated loop of small bowel | | (131). LYMPH NODES: Multiple prominent left mid abdomen lymph nodes, likely | | reactive.VESSELS: Unremarkable. BONES AND SOFT TISSUES: No suspicious osseous lesion. | | Anterolisthesis of L4 on L5 measuring 4 mm. Mild multilevel discogenic degeneration of | | the thoracolumbar spine, most prominent at L5-S1. Postoperative changes of the ventral | | abdominal wall (). IMPRESSION: Findings most consistent with mesenteric | | panniculitis. No internal hernia or evidence of obstruction. Complex multiple ventral | | hernias without complications. These results were discussed with Dr. Moser in the ED on | | 05/13/2019 8:54 PM by Alexx Gordon MD. I have personally reviewed the images and, if | | necessary, edited the report. I agree with the report as now presented. Final | | signature: Mae Fierro MD 05/13/2019 9:04 PM Preliminary: Alexx oGrdon MD | | Dictation initiated: Alexx Gordon MD 05/13/2019 8:32 PM | | | |Findings most consistent with mesenteric panniculitis. No internal hernia or evidence of ob struction. | | | |Complex multiple ventral hernias without complications. | | | |These results were discussed with Dr. Moser in the ED on 05/13/2019 8:54 PM by Alexx merchant MD. | | | |I have personally reviewed the images and, if necessary, edited the report. I agree with th e report as now presented. | | | |Final signature: Mae Fierro MD 05/13/2019 9:04 PM | |Preliminary: Alexx Gordon MD | |Dictation initiated: Alexx Gordon MD 05/13/2019 8:32 PM | + + + +---------+ + + | Performing | Address | City/State/Zipcode | Phone Number | | Organization | | | | + +---------+ + + | [facility] | | | | | VOICE RECOGNITION 2 | | | | + +---------+ + + CBC AND AUTO DIFF (05/13/2019 6:06 PM PDT) + + + + + + | Component | Value | Ref Range | Performed | Pathologist | | | | | At | Signature | + + + + + + | WHITE CELL | 12.53 (H) | 3.50 - 10.80 | [facility] | | | COUNT | | K/cu mm | LABORATORY | | | | | | SERVICES, | | | | | | CORE | | + + + + + + | RED CELL | 4.50 | 4.00 - 5.20 | [facility] | | | COUNT | | M/cu mm | LABORATORY | | | | | | SERVICES, | | | | | | CORE | | + + + + + + | HEMOGLOBIN | 13.6 | 12.0 - 16.0 | [facility] | | | | | g/dL | LABORATORY | | | | | | SERVICES, | | | | | | CORE | | + + + + + + | HEMATOCRIT | 42.5 | 36.0 - 46.0 % | [facility] | | | | | | LABORATORY | | | | | | SERVICES, | | | | | | CORE | | + + + + + + | MCV | 94.4 | 80.0 - 100.0 fL | [facility] | | | | | | LABORATORY | | | | | | SERVICES, | | | | | | CORE | | + + + + + + | MCHC | 32.0 | 32.0 - 36.0 | [facility] | | | | | g/dL | LABORATORY | | | | | | SERVICES, | | | | | | CORE | | + + + + + + | RDW SD | 51.0 (H) | 35.1 - 46.3 fL | [facility] | | | | | | LABORATORY | | | | | | SERVICES, | | | | | | CORE | | + + + + + + | PLATELET | 266 | 150 - 400 K/cu | [facility] [...] + + + + | NEUTROPHIL | 50.6 | 50.0 - 70.0 % | [facility] | | | % | | | LABORATORY | | | | | | SERVICES, | | | | | | CORE | | + + + + + + | LYMPHOCYTE | 36.8 | 18.0 - 42.0 % | [facility] | | | % | | | LABORATORY | | | | | | SERVICES, | | | | | | CORE | | + + + + + + | MONOCYTE % | 7.8 | 3.5 - 9.0 % | [facility] | | | | | | LABORATORY | | | | | | SERVICES, | | | | | | CORE | | + + + + + + | EOS % | 3.8 (H) | 1.0 - 3.0 % | [...] + + + + | IG% | 0.4 | 0.0 - 1.0 % | [facility] | | | | | | LABORATORY | | | | | | SERVICES, | | | | | | CORE | | + + + + + + | NEUTROPHIL | 6.35 | 1.80 - 7.70 | [facility] | | | # | | K/cu mm | LABORATORY | | | | | | SERVICES, | | | | | | CORE | | + + + + + + | LYMPHOCYTE | 4.61 | 1.00 - 4.80 | [facility] | | | # | | K/cu mm | LABORATORY | | | | | | SERVICES, | | | | | | CORE | | + + + + + + | MONOCYTE # | 0.98 (H) | 0.10 - 0.90 | [facility] | | | | | K/cu mm | LABORATORY | | | | | | SERVICES, | | | | | | CORE | | + + + + + + | EOS # | 0.47 | 0.00 - 0.50 | [facility] | [...] + + + + | IG# | 0.05 | 0.00 - 0.10 | [facility] | [...] [facility] | [address] | [place] [address] | | | SERVICES, CORE | [address] | | | + + + + + HCG BETA QUANT, PLASMA (05/13/2019 6:06 PM PDT) + +-------+ + + + | Component | Value | Ref Range | Performed | Pathologist | | | | | At | Signature | + +-------+ + + + | HCG BETA, | <1 | No reference | [facility] | | | PLASMA | | ranges have | LABORATORY | | | | | been | CLAIRE, | | | | | established | CORE | | | | | mIU/mL | | | + +-------+ + + + + + | Specimen | + + | Blood - Blood | | (substance) | + + + + + | Narrative | Performed At | + + + | HCG Reference ranges Males: <2 | [facility] | | mIU/mL Non- Females: <3 mIU/mL | LABORATORY | | Females: >5 mIU/mL HCG Ranges During Normal | SERVICES, CORE | | : Weeks Post Last Menstrual Period: Approximate hCG | | | Range, mIU/mL 3-4 weeks | | | 9 - 130 4-5 weeks | | | 75 - 2600 5-6 weeks | | | 850 - 65329 6-7 weeks | | | 4000 - 232084 7-12 weeks | | | 74760 - 844838 12-16 weeks | | | 67283 - 455846 16-29 | | | weeks 1400 - 47259 | | | 29-41 weeks 940 - 51408 | | | This test has not been approved for use as a tumor marker in | | | males or females. | | + + + + + + + + | Performing | Address | City/State/Zipcode | Phone Number | | Organization | | | | + + + + + | [facility] | [address] | [place] [address] | | | SERVICES, CORE | [address] | | | + + + + + LIPASE, PLASMA (05/13/2019 6:06 PM PDT) + +---------+ + + + | Component | Value | Ref Range | Performed | Pathologist | | | | | At | Signature | + +---------+ + + + | LIPASE | 104 (L) | 152 - 353 U/L | [facility] | | | (LAB) | [...] | + + + + + | [facility] | [address] | [place] [address] | | | SERVICES, CORE | [address] | | | + + + + + COMPLETE METABOLIC SET (NA,K,CL,CO2,BUN,CREAT,GLUC,CA,AST,ALT,BILI TOTAL,ALK PHOS,ALB,PROT TOTAL) (05/13/2019 6:06 PM PDT) + +---------+ + + + | Component | Value | Ref Range | Performed | Pathologist | | | | | At | Signature | + +---------+ + + + | GLUCOSE, | 91 | 70 - 99 mg/dL | [facility] | | | PLASMA | | | LABORATORY | | | (LAB) | | | SERVICES, | | | | | | CORE | | + +---------+ + + + | BUN, PLASMA | 10 | 6 - 20 mg/dL | [facility] | | | (LAB) | | | LABORATORY | | | | | | SERVICES, | | | | | | CORE | | + +---------+ + + + | CREATININE | 0.68 | 0.60 - 1.10 | [facility] | | | PLASMA | | mg/dL | LABORATORY | | | (LAB) | | | SERVICES, | | | | | | CORE | | + +---------+ + + + | EGFR | >60 | >60 mL/min | [facility] | | | - | | | LABORATORY | | | [facility] | | | SERVICES, | | | [...] +---------+ + + + | CHLORIDE, | 116 (H) | 97 - 108 mmol/L | [facility] | | | PLASMA | | | LABORATORY | | | (LAB) | | | SERVICES, | | | | | | CORE | | + +---------+ + + + | TOTAL CO2, | 18 (L) | 21 - 32 mmol/L | [...] +---------+ + + + | CALCIUM(ALB | 9.2 | 8.6 - 10.2 | [facility] | [...] +---------+ + + + | TOTAL | 6.9 | 6.4 - 8.2 g/dL | [facility] [...] + + + | ALK PHOS | 125 (H) | 42 - 98 U/L | [facility] | | | | | | LAB[facility]ATORY | | | | | | SERVICES, | | | | | | CORE | | + +---------+ + + + | AST(SGOT) | 15 | <=41 U/L | [facility] | | | | | | LABORATORY | | | | | | SERVICES, | | | | | | CORE | | + +---------+ + + + | ALT (SGPT) | 18 | <=60 U/L | [facility] | | | | | | LABORATORY | | | | | | SERVICES, | | | | | | CORE | | + +---------+ + + + | ANION GAP | 7 | 4 - 11 mmol/L | [facility] | | | | | | LABORATORY | | | | | | SERVICES, | | | | | | CORE | | + +---------+ + + + | ANION | 9 | 4 - 11 mmol/L [...] | + + + + + | [employer] | [address] | [place] [address] | | | SERVICES, [place] | [address] | | | + + + + + ED INFORMATION EXCHANGE (05/13/2019 5:14 PM PDT) + + | Specimen | + + | | + + + + + | Narrative | Performed At | + + + | COLLECTIVE?NOTIFICATION?05/13/2019 17:13?DYLAN CRISTINA?MRN: | [facility] | | [id number] Criteria Met Has Guidelines PDMP Security | MEDICAL | | and Safety No recent Security Events currently on file ED Care | [employer]CH[employer]OLOGIES | | Guidelines from [employer] [facility] [place] Last Updated: 12/06/18 9:53 AM | | | Care Coordination: Receiving mental health services with | | | [employer].? Please contact [employer] for mental health concerns.? | | | Sarah/Toni Centeno: [phone]? Kishan: [phone].? | | | These are guidelines and the provider should exercise clinical | | | judgment when providing care. Care History Medical/Surgical | | | 05/11/19 12:00 AM [facility] Patient is | | | currently established with [facility]. If patient is seen in | | | the ED during business hours. Please contact CHWs at [facility] | | | Clinic. Care Recommendation: This [...] care. 08/23/18 12:00 AM | | | [facility] PATIENT HAS A PCP APT TO ESTABLISH | | | CARE ON 10/04/18 @ 10:00AM WITH DR HYLTON. Prescription | | | Drug Report (12 Mo.) Rx Details Fill Date Drug Description Qty. | | | Prescriber MED 2019-05-12 FENTANYL 12 MCG/HR PATCH 5 BETZY | | | JAVIER BALDWIN 2 0 2019-04-18 ALPRAZOLAM 1 MG TABLET 60 [place] JEFFAS 4 | | | 0 2019-04-13 BELBUCA 600 MCG FILM 57 BETZY BALDWIN PA-C 0 | | | 2019-04-12 BELBUCA 600 MCG FILM 3 BETZY BALDWIN PA-C 0 | | | 2019-04-09 SUDOGEST 30 MG TABLET 5 BERNARDO MARTIN, SPINNERET PERSON 0 | | | 2019-03-30 SUDOGEST 30 MG TABLET 30 BERNARDO MARTIN, SPINNERET PERSON 0 | | | 2019-03-20 ALPRAZOLAM 1 MG TABLET 60 [place] SPAS 4 0 2019-03-14 | | | BELBUCA 600 MCG FILM 58 JEFFREY ORR 0 2019 PHENTERMINE | | | 37.5 MG TABLET 90 ALY FRANKS MD 4 0 2019-02-21 ALPRAZOLAM 1 | | | MG TABLET 60 [place] JEFFAS 4 0 2019-02-11 BELBUCA 600 MCG FILM 56 | | | JUNITO PEDRO 0 2019-01-31 PHENTERMINE 37.5 MG TABLET 30 | | | ALY FRANKS MD 4 0 2019-01-20 ALPRAZOLAM 1 MG TABLET 60 [place] | | | JEFFAS 4 0 2019-01-14 BELBUCA 600 MCG FILM 56 BETZY BALDWIN PA-C | | | 0 2019-01-05 BELBUCA 450 MCG FILM 48 BETZY BALDWIN PA-C 0 | | | 2019-01-02 PHENTERMINE 37.5 MG TABLET 30 ALY FRANKS MD 4 0 | | | 2018-12-24 BELBUCA 450 MCG FILM 24 BETZY BALDWIN PA-C 0 | | | 2018-12-03 PHENTERMINE 37.5 MG TABLET 30 ALY FRANKS MD 4 0 | | | 2018-11-26 BELBUCA 450 MCG FILM 56 BETZY BALDWIN PA-C 0 | | | 2018-11-24 BELBUCA 300 MCG FILM 16 BETZY BALDWIN PA-C 0 Showing | | | 20 of the 37 most-recent prescriptions Rx Summary Metric | | | Count CS II-V Rx 23 CS-II Rx 1 Quantity Dispensed 1,360 Unique | | | Prescribers 6 Unique Pharmacies 3 Benzos 4 Opioids 7 Long | | | Acting Opioids 0 E.D. Visit Count (12 mo.) Facility Visits | | | [facility] 1 [facility] 1 | | | [facility] 2 Total 4 Note: Visits indicate total | | | known visits. Recent Emergency Department Visit Summary Date | | | Facility City State Type Diagnoses or Chief Complaint May 13, 2019 | | | [facility] [place] Emergency | | | [phone]. A303 May 10, 2019 [facility] [place] | | | Emergency Nausea with vomiting, unspecified Solitary | | | pulmonary nodule Anxiety disorder, unspecified Ventral | | | hernia without obstruction or gangrene Unspecified abdominal | | | pain Diarrhea, unspecified Allergy status to oth | | | drug/meds/biol subst status Prsnl hx of TIA (TIA), and cereb | | | infrc w/o resid deficits Other penitentiary (current) drug therapy | | | Allergy status to penicillin December 03, 2018 [facility] | | | [place] Emergency RIGHT LEG PAIN DUE TO FALL | | | Strain of unsp musc/tend at lower leg level, right leg, init Jul | | | 2018 [facility] [place] Emergency Other penitentiary | | | (current) drug therapy Upper abdominal pain, unspecified | | | Bariatric surgery status Allergy status to oth drug/meds/biol | | | subst status Noninfective gastroenteritis and colitis, | | | unspecified Obesity, unspecified Anxiety disorder, | | | unspecified jail (current) use of aspirin Allergy | | | status to penicillin Personal history of pulmonary embolism | | | Recent Inpatient Visit Summary No recorded inpatient visits. | | | Care Team Provider Specialty Phone Fax Service Dates Treva, | | | Rob Warehouse And Receiving Supervisor/Electronics Assembler Mar 27, 2018 - | | | Current Bernard Hylton MD Internal Medicine: Pulmonary Disease | | | Aug 23, 2018 - Current Qiandao This patient has | | | registered at the [facility] | | | Department For more information visit: | | | [email or web address] | | | [email or web address] PLEASE NOTE: 1. Any care recommendations and [...] | or completeness of information provided. ? 2019 [employer] | | | [email or web address] - [email or web address] | | + + + + + | Procedure Note | + + | Service Account, Rtf Results Inbound - 05/13/2019 5:16 PM PDT Formatting of this | | note might be different from the original.COLLECTIVE?NOTIFICATION?05/13/2019 | | 17:13?DYLAN CRISTINA? [facility] Has Guidelines PDMPSecurity and | | SafetyNo recent Security Events currently on fileED Care Guidelines from [employer] - | | [place] Updated: 12/06/18 9:53 AM Care Coordination:Receiving mental health | | services with [employer].? Please contact [employer] for mental health concerns.? | | Sarah/Toni Centeno: [phone]? Kishan: [phone].?These are guidelines | | and the provider should exercise clinical judgment when providing care.Care | | HistoryMedical/Sadgggbl89/16/19 12:00 AM [facility] Patient is currently | | established with [facility]. If patient is seen in the ED during business hours. | | Please contact CHWs at [facility].Care Recommendation:This patient has had 5 or | | more Emergency Department visits in the last 12 months.? Patient requires education on | | the scope and purpose of the ED as an acute care provider not a Primary Care Provider | | and should not be utilized for chronic conditions.?These are guidelines and the provider | | should exercise clinical judgment when providing care.08/23/18 12:00 AM [facility] | | Hospital PATIENT HAS A PCP APT TO ESTABLISH CARE ON 10/04/18 @ 10:00AM WITH DR HYLTON. | | Prescription Drug Report (12 Mo.)Rx DetailsFill Date Drug Description Qty. Prescriber CS | | MED 2019-05-12 FENTANYL 12 MCG/HR PATCH 5 BETZY BALDWIN PA-C 2 0 2019-04-18 | | ALPRAZOLAM 1 MG TABLET 60 [place] JEFFAS 4 0 2019-04-13 BELBUCA 600 MCG FILM 57 BETZY | | JAVIER BALDWIN 0 2019-04-12 BELBUCA 600 MCG FILM 3 BETZY BALDWIN PA-C 0 2019-04-09 | | SUDOGEST 30 MG TABLET 5 BERNARDO MARTIN, SPINNERET PERSON 0 2019-03-30 SUDOGEST 30 MG TABLET 30 | | BERNARDO MARTIN, SPINNERET PERSON 0 2019-03-20 ALPRAZOLAM 1 MG TABLET 60 [place] JEFFAS 4 0 2019-03-14 | | BELBUCA 600 MCG FILM 58 JEFFREY ORR 0 2019 PHENTERMINE 37.5 MG TABLET 90 | | ALY FRANKS MD 4 0 2019-02-21 ALPRAZOLAM 1 MG TABLET 60 [place] JEFFAS 4 0 2019-02-11 | | BELBUCA 600 MCG FILM 56 JUNITO PEDRO 0 2019-01-31 PHENTERMINE 37.5 MG TABLET | | 30 ALY FRANKS MD 4 0 2019-01-20 ALPRAZOLAM 1 MG TABLET 60 [place] JEFFAS 4 0 | | 2019-01-14 BELBUCA 600 MCG FILM 56 BETZY BALDWIN PA-C 0 2019-01-05 BELBUCA 450 MCG | | FILM 48 BETZY BALDWIN PA-C 0 2019-01-02 PHENTERMINE 37.5 MG TABLET 30 ALY | | MD JR 4 0 2018-12-24 BELBUCA 450 MCG FILM 24 BETZY BALDWIN PA-C 0 2018-12-03 | | PHENTERMINE 37.5 MG TABLET 30 ALY FRANKS MD 4 0 2018-11-26 BELBUCA 450 MCG FILM | | 56 BETZY BALDWIN PA-C 0 2018-11-24 BELBUCA 300 MCG FILM 16 BETZY BALDWIN PA-C 0 | | Showing 20 of the 37 most-recent prescriptions Rx SummaryMetric Count CS II-V Rx 23 | | CS-II Rx 1 Quantity Dispensed 1,360 Unique Prescribers 6 Unique Pharmacies 3 Benzos 4 | | Opioids 7 Long Acting Opioids 0 E.D. Visit Count (12 mo.)Facility Visits [facility] | | Health 1 [facility] 1 [facility] 2 Total 4 Note: | | Visits indicate total known visits. Recent Emergency Department Visit SummaryDate | | Facility City State Type Diagnoses or Chief Complaint May 13, 2019 [facility] | | [facility] [place] Emergency 10,800. A303 May 10, 2019 [facility] | | [place] Emergency Nausea with vomiting, unspecified Solitary pulmonary nodule | | Anxiety disorder, unspecified Ventral hernia without obstruction or gangrene | | Unspecified abdominal pain Diarrhea, unspecified Allergy status to oth | | drug/meds/biol subst status Prsnl hx of TIA (TIA), and cereb infrc w/o resid deficits | | Other tank terminal gauger (current) drug therapy Allergy status to penicillin December 03, 2018 | | [facility] [place] Emergency RIGHT LEG PAIN DUE TO FALL Strain of | | unsp musc/tend at lower leg level, right leg, init Aug 22, 2018 [facility] | | [place] Emergency Other tank terminal gauger (current) drug therapy Upper abdominal pain, | | unspecified Bariatric surgery status Allergy status to oth drug/meds/biol subst | | status Noninfective gastroenteritis and colitis, unspecified Obesity, unspecified | | Anxiety disorder, unspecified jail (current) use of aspirin Allergy status | | to penicillin Personal history of pulmonary embolism Recent Inpatient Visit | | SummaryNo recorded inpatient visits. Care TeamProvider Specialty Phone Fax Service Dates | | Rob Tilley Warehouse And Receiving Supervisor/Electronics Assembler Mar 27, 2018 - Current | | Bernard Hylton MD Internal Medicine: Pulmonary Disease Aug 23, 2018 - Current | | [facility] patient has registered at the [facility] | | Emergency Department For more information visit: | | [email or web address] PLEASE | | NOTE: 1. Any care recommendations and other clinical information are provided as | | guidelines or for historical purposes only, and [...] completeness of information | | provided.? 2019 [employer] | |Unique Pharmacies 3 | |Benzos 4 | |Opioids 7 | |Long Acting Opioids 0 | | | | | | | |E.D. Visit Count (12 mo.) | |Facility Visits | |[facility] 1 | |[facility] 1 | |[facility] 2 | |Total 4 | |Note: Visits indicate total known visits. | | | |Recent Emergency Department Visit Summary | |Date Facility City State Type Diagnoses or Chief Complaint | |May 13, 2019 [facility] [place] Emergency | | 10,800. A303 | | | |May 10, 2019 [facility]. [place] Emergency | | Nausea with vomiting, unspecified | | Solitary pulmonary nodule | | Anxiety disorder, unspecified | | Ventral hernia without obstruction or gangrene | | Unspecified abdominal pain | | Diarrhea, unspecified | | Allergy status to oth drug/meds/biol subst status | | Prsnl hx of TIA (TIA), and cereb infrc w/o resid deficits | | Other penitentiary (current) drug therapy | | Allergy status to penicillin | | | |December 03, [address] [facility]. [place] Emergency | | RIGHT LEG PAIN DUE TO FALL | | Strain of unsp musc/tend at lower leg level, right leg, init | | | |Aug 22, [address] [facility]. 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 | | | |Care Team | |Provider Specialty Phone Fax Service Dates | |Rob Tilley Warehouse And Receiving Supervisor/Electronics Assembler Mar 27, 2018 - Current | |Bernard Hylton MD Internal Medicine: Pulmonary Disease Aug 23, 2018 - Current | | | |[facility] | |This patient has registered at the [facility] Emergency Departmen t | |For more information visit: [email or web address] | |PLEASE NOTE: | | 1. Any care recommendations and other clinical information are provided as guidelines or for historical purposes only, and providers should exercise their own clinical judgment whe n providing care. | | 2. You may only use this information for purposes of treatment, payment or health care o perations activities, and subject to the limitations of applicable [facility] Policies. | | 3. You should consult directly with the organization that provided a care guideline or o ther clinical history with any questions about additional information or accuracy or complet eness of information provided. | | | |? 2019 [employer] | + + + + + + + | Performing | Address | City/State/Zipcode | Phone Number | | Organization | | | | + + + + + | [facility] | [address] | [place], [place] | [phone] | | [employer] | [address] | [address] | | + + + + + documented in this encounter Visit Diagnoses + + | Diagnosis | + + | Mesenteric adenitis - Primary Nonspecific mesenteric lymphadenitis | + + | Nausea and vomiting, intractability of vomiting not specified, unspecified vomiting | | type | + + | Abdominal pain, unspecified abdominal location | + + | Ventral hernia without obstruction or gangrene Ventral hernia, unspecified, without | | mention of obstruction or gangrene | + + | History of Nilesh-en-Y gastric bypass Bariatric surgery status | + + documented in this encounter Administered Medications + +--------+ + +------+------+ | Medication Order | MAR | Action | Dose | Rate | Site | | | Action | Date | | | | + +--------+ + +------+------+ | acetaminophen (TYLENOL) tablet | Given | 05/14/20 | 1,000 mg | | | | 1,000 mg 1,000 mg, oral, THREE | | 19 11:07 | | | | | TIMES DAILY, First dose on Sat | | AM PDT | | | | | 05/14/19 at 0900, Until | | | | | | | Discontinued | | | | | | + +--------+ + +------+------+ +---+---+ | | | +---+---+ + +-------+ +------+---+---+ | ALPRAZolam (XANAX) tablet 1 mg | Given | 05/14/20 | 1 mg | | | | 1 mg, oral, TWICE DAILY, First | | 19 1:28 | | | | | dose on 05/14/19 at 0130, | | AM PDT | | | | | Until Discontinued | | | | | | + +-------+ +------+---+---+ +---+---+ | | | +---+---+ + +-------+ +-------+---+---+ | atenolol (TENORMIN) tablet 50 | Given | 05/14/20 | 50 mg | | | | mg 50 mg, oral, AT BEDTIME, | | 19 3:20 | | | | | First dose (after last | | AM PDT | | | | | modification) on 05/14/19 at | | | | | | | 0230, Until Discontinued | | | | | | + +-------+ +-------+---+---+ +---+---+ | | | +---+---+ + +-------+ +--------+---+---+ | cyanocobalamin (VITAMIN B-12) | Given | 05/14/20 | 1,000 | | | | tablet 1,000 mcg 1,000 mcg, | | 19 11:07 | mcg | | | | oral, DAILY, First dose on Sat | | AM PDT | | | | | 05/14/19 at 0900, Until | | | | | | | Discontinued | | | | | | + +-------+ +--------+---+---+ +---+---+ | | | +---+---+ + +-------+ +--------+---+---+ | HYDROmorphone (DILAUDID) | Given | 05/14/20 | 0.2 mg | | | | injection 0.2 mg 0.2 mg, | | 19 9:12 | | | | | intravenous, EVERY 3 HOURS | | AM PDT | | | | | NEEDED, Starting 05/14/19 at | | | | | | | 0126, Until 05/14/19 at 2151, | | | | | | | severe pain | | | | | | + +-------+ +--------+---+---+ +-------+ +--------+---+---+ | Given | 05/14/20 | 0.2 mg | | | | | 19 4:24 | | | | | | AM PDT | | | | +-------+ +--------+---+---+ +---+---+ | | | +---+---+ + +-------+ +--------+---+---+ | HYDROmorphone (DILAUDID) | Given | 05/13/20 | 0.5 mg | | | | injection 0.5 mg 0.5 mg, | | 19 10:15 | | | | | intravenous, EVERY 30 MINUTES | | PM PDT | | | | | NEEDED, 3 doses, Starting Fri | | | | | | | 05/13/19 at 1922, Until Fri | | | | | | | 05/13/19 at 2215, severe pain | | | | | | + +-------+ +--------+---+---+ +-------+ +--------+---+---+ | Given | 05/13/20 | 0.5 mg | | | | | 19 8:51 | | | | | | PM PDT | | | | +-------+ +--------+---+---+ | Given | 20 | 0.5 mg | | | | | 19 7:51 | | | | | | PM PDT | | | | +-------+ +--------+---+---+ +---+---+ | | | +---+---+ + +-------+ +--------+---+---+ | HYDROmorphone (DILAUDID) | Given | 05/14/20 | 0.5 mg | | | | injection 0.5 mg 0.5 mg, | | 19 1:22 | | | | | intravenous, EVERY 30 MINUTES | | AM PDT | | | | | NEEDED, 3 doses, Starting Fri | | | | | | | 05/13/19 at 2343, Until Sat | | | | | | | 05/14/19 at 0135, severe pain | | | | | | + +-------+ +--------+---+---+ +-------+ +--------+---+---+ | Given | 20 | 0.5 mg | | | | | 19 11:57 | | | | | | PM PDT | | | | +-------+ +--------+---+---+ + +---+ | | | + +---+ | influenza vaccine | | | (FLUZONE,FLUARIX,FLUAVAL) (PF) IM | | | injection (age 6 months or | | | greater) 0.5 mL 0.5 mL, | | | intramuscular, DAY OF DISCHARGE, | | | 1 dose, Starting 05/14/19 at | | | 0619, Until 05/14/19 at 2151, | | | Flu vaccination per delegation | | | protocol | | + +---+ | | | + +---+ + +-------+ +-------+---+---+ | iohexol (OMNIPAQUE) 300 mg | Given | 05/13/20 | 30 mL | | | | iodine/mL 30 mL 30 mL, oral, | | 19 7:51 | | | | | ONCE, 1 dose, [facility] 05/13/19 at | | PM PDT | | | | | 1830 | | | | | | + +-------+ +-------+---+---+ +---+---+ | | | +---+---+ + +---------+ +--------+---+---+ | iohexol (OMNIPAQUE) 350 mg | IV Push | 05/13/20 | 100 mL | | | | iodine/mL injection 100 mL 100 | | 19 8:25 | | | | | mL, intravenous, ONCE, 1 dose, | | PM PDT | | | | | 05/13/19 at 1830 | | | | | | + +---------+ +--------+---+---+ +---+---+ | | | +---+---+ + + + + + +---+ | lactated ringers IV 75 mL/hr, | Rate/Dos | 05/14/20 | 75 mL/hr | 75 mL/hr | | | intravenous, CONTINUOUS, Starting | e Verify | 19 4:26 | | | | | 05/14/19 at 0130, Until Sat | | AM PDT | | | | | 05/14/19 at 2151 | | | | | | + + + + + +---+ +---------+ + + +---+ | New Bag | 05/14/20 | 75 mL/hr | 75 mL/hr | | | | 19 1:49 | | | | | | AM PDT | | | | +---------+ + + +---+ +---+---+ | | | +---+---+ + +-------+ +-------+---+---+ | lurasidone (LATUDA) tablet 40 | Given | 05/14/20 | 40 mg | | | | mg 40 mg, oral, AT BEDTIME, | | 19 3:20 | | | | | First dose on 05/14/19 at | | AM PDT | | | | | 0230, Until Discontinued | | | | | | + +-------+ +-------+---+---+ +---+---+ | | | +---+---+ + +-------+ +--------+---+---+ | magnesium oxide (MAG-OX) tablet | Given | 05/14/20 | 400 mg | | | | 400 mg 400 mg, oral, TWICE | | 19 11:07 | | | | | DAILY, First dose on 05/14/19 | | AM PDT | | | | | at 0900, Until Discontinued | | | | | | + +-------+ +--------+---+---+ +---+---+ | | | +---+---+ + +-------+ +-------+---+---+ | metoclopramide HCl (REGLAN) | Given | 05/13/20 | 10 mg | | | | injection 10 mg 10 mg, | | 19 7:51 | | | | | intravenous, ONCE, 1 dose, Fri | | PM PDT | | | | | 05/13/19 at 2000 | | | | | | + +-------+ +-------+---+---+ +---+---+ | | | +---+---+ + +-------+ + +---+---+ | multivitamin (THERA VITAMIN) 1 | Given | 05/14/20 | 1 tablet | | | | tablet 1 tablet, oral, DAILY, | | 19 11:07 | | | | | First dose on 05/14/19 at | | AM PDT | | | | | 0900, Until Discontinued | | | | | | + +-------+ + +---+---+ +---+---+ | | | +---+---+ + +-------+ +---+---+---+ | nystatin (MYCOSTATIN) powder | Given | 05/14/20 | | | | | topical, TWICE DAILY, First dose | | 19 11:06 | | | | | on 05/14/19 at 0130, Until | | AM PDT | | | | | Discontinued | | | | | | + +-------+ +---+---+---+ +-------+ +---+---+---+ | Given | 05/14/20 | | | | | | 19 3:20 | | | | | | AM PDT | | | | +-------+ +---+---+---+ +---+---+ | | | +---+---+ + +-------+ +------+---+---+ | oxyCODONE (immediate release) | Given | 05/14/20 | 5 mg | | | | (ROXICODONE) tablet 5 mg 5 mg, | | 19 3:23 | | | | | oral, EVERY 4 HOURS NEEDED, | | AM PDT | | | | | Starting 05/14/19 at 0126, | | | | | | | Until 05/14/19 at 0718, | | | | | | | moderate pain, unresponsive to | | | | | | | non-opioid medication | | | | | | + +-------+ +------+---+---+ +---+---+ | | | +---+---+ + +-------+ +-------+---+---+ | oxyCODONE (immediate release) | Given | 05/14/20 | 10 mg | | | | (ROXICODONE) tablet 5-10 mg 5-10 | | 19 3:26 | | | | | mg, oral, EVERY 4 HOURS | | PM PDT | | | | | NEEDED, Starting 05/14/19 at | | | | | | | 0718, Until 05/14/19 at 2151, | | | | | | | moderate pain, unresponsive to | | | | | | | non-opioid medication | | | | | | + +-------+ +-------+---+---+ +-------+ +-------+---+---+ | Given | 05/14/20 | 10 mg | | | | | 19 11:45 | | | | | | AM PDT | | | | +-------+ +-------+---+---+ | Given | 05/14/20 | 10 mg | | | | | 19 7:25 | | | | | | AM PDT | | | | +-------+ +-------+---+---+ +---+---+ | | | +---+---+ + +-------+ +-------+---+---+ | PARoxetine (PAXIL) tablet 40 mg | Given | 05/14/20 | 40 mg | | | | 40 mg, oral, AT BEDTIME, First | | 19 3:20 | | | | | dose on 05/14/19 at 0215, | | AM PDT | | | | | Until Discontinued | | | | | | + +-------+ +-------+---+---+ +---+---+ | | | +---+---+ + +-------+ +--------+---+---+ | potassium chloride SR (K-DUR) | Given | 05/14/20 | 20 mEq | | | | tablet 20 mEq 20 mEq, oral, | | 19 11:07 | | | | | TWICE DAILY, First dose on Sat | | AM PDT | | | | | 05/14/19 at 0900, Until | | | | | | | Discontinued | | | | | | + +-------+ +--------+---+---+ +---+---+ | | | +---+---+ + +-------+ +---------+---+---+ | pramipexole (MIRAPEX) tablet | Given | 05/14/20 | 0.25 mg | | | | 0.25 mg 0.25 mg, oral, AT | | 19 3:20 | | | | | BEDTIME, First dose on Sat | | AM PDT | | | | | 05/14/19 at 0230, Until | | | | | | | Discontinued | | | | | | + +-------+ +---------+---+---+ +---+---+ | | | +---+---+ + +-------+ +-------+---+---+ | prochlorperazine (COMPAZINE) | Given | 05/14/20 | 10 mg | | | | injection 5-10 mg 5-10 mg, | | 19 9:11 | | | | | intravenous, EVERY 6 HOURS | | AM PDT | | | | | NEEDED, Starting 05/14/19 at | | | | | | | 0126, Until 05/14/19 at 2151, | | | | | | | nausea/vomiting not responding | | | | | | | to ondansetron and unable to take | | | | | | | oral prochlorperazine | | | | | | + +-------+ +-------+---+---+ +---+---+ | | | +---+---+ + +-------+ +-------+---+---+ | prochlorperazine (COMPAZINE) | Given | 05/14/20 | 10 mg | | | | tablet 5-10 mg 5-10 mg, oral, | | 19 3:11 | | | | | EVERY 6 HOURS NEEDED, Starting | | PM PDT | | | | | 05/14/19 at 0126, Until Sat | | | | | | | 05/14/19 at 2151, | | | | | | | nausea/vomiting, second line | | | | | | + +-------+ +-------+---+---+ +-------+ +-------+---+---+ | Given | 05/14/20 | 10 mg | | | | | 19 8:46 | | | | | | AM PDT | | | | +-------+ +-------+---+---+ +---+---+ | | | +---+---+ + +-------+ +---------+-------+---+ | promethazine (PHENERGAN) 12.5 | Given | 05/13/20 | 12.5 mg | 303 | | | mg in NaCl 0.9 % (NS) IV 12.5 | | 19 11:15 | | mL/hr | | | mg, intravenous, ONCE, 1 dose, | | PM PDT | | | | | 05/13/19 at 2300 | | | | | | + +-------+ +---------+-------+---+ +---+---+ | | | +---+---+ + +---------+ + +---+---+ | sodium chloride 0.9 % (NS) IV | New Bag | 05/13/20 | 1,000 mL | | | | infusion 1,000 mL, intravenous, | | 19 7:51 | | | | | ONCE, 1 dose, [facility] 05/13/19 at | | PM PDT | | | | | 2000 | | | | | | + +---------+ + +---+---+ +---+---+ | | | +---+---+ + +---------+ + +---+---+ | sodium chloride 0.9 % (NS) IV | New Bag | 05/13/20 | 1,000 mL | | | | infusion 1,000 mL, intravenous, | | 19 11:58 | | | | | ONCE, 1 dose, [facility] 05/14/19 at | | PM PDT | | | | | 0015 | | | | | | + +---------+ + +---+---+ +---+---+ | | | +---+---+ + +-------+ +-------+---+---+ | thyroid tablet 30 mg 30 mg, | Given | 05/14/20 | 30 mg | | | | oral, AT BEDTIME, First dose on | | 19 3:20 | | | | | 05/14/19 at 0230, Until | | AM PDT | | | | | Discontinued | | | | | | + +-------+ +-------+---+---+ +---+---+ | | | +---+---+ + +-------+ +--------+---+---+ | topiramate (TOPAMAX) tablet 100 | Given | 05/14/20 | 100 mg | | | | mg 100 mg, oral, TWICE DAILY, | | 19 3:21 | | | | | First dose on 05/14/19 at | | AM PDT | | | | | 0230, Until Discontinued | | | | | | + +-------+ +--------+---+---+ +---+---+ | | | +---+---+ + +-------+ +-------+---+---+ | traZODone (DESYREL) dose 25 mg | Given | 05/14/20 | 25 mg | | | | 25 mg, oral, AT BEDTIME | | 19 4:24 | | | | | NEEDED, Starting 05/14/19 at | | AM PDT | | | | | 0407, Until 05/14/19 at 2151, | | | | | | | insomnia | | | | | | + +-------+ +-------+---+---+ +---+---+ | | | +---+---+ documented in this encounter
--- OUTSIDE RECORDS SUMMARY | ~2020-03-26 | XMS | Encounter Summary ---
Demographics + + + | Address | [address] | | | [place] [address] | + + + | Home Phone [...] + + + | Author | [facility] | + + + | Organization | [facility] | + + + | Address | Unknown | + + + | Phone | Unavailable | + + + Support + + + + + | Name | Relationship | Address | Phone | + + + + + | Katalina Padilla | ECON | [address] | | | | | [place], [place] | | | | | [address] | | + + + + + | Ellie Vang | ECON | Unknown | | + + + + + Care Team Providers + +------+ + | Care Vegetable Grader Name | Role | Phone | + +------+ + | Kenyatta Cardenas MD | PCP | | + +------+ + Reason for Visit + +--------+ + | Reason | Onset | Comments | | | Date | | + +--------+ + | Refill Request | 02/15/ | PHENTERMINE 37.5 mg oral tablet | | | 2018 | | + +--------+ + | Refill Request | 02/16/ | | | | 2019 | | + +--------+ + Encounter Details +--------+--------+ + + + | Date | Type | Department | Care Team | Description | +--------+--------+ + + + | 02/15/ | Refill | Cardiology | Randell Franks, | Refill Request | | 2018 | | Preventive at [facility] | MD [address] | (PHENTERMINE 37.5 mg | | | | [address] | [facility] [place] | oral tablet); | | | | [place] [facility] | [address] | Refill Request | | | | and Healing, | [phone] | | | | | [address] | | | | | | [place], [place] | | | | | | [address] | | | | | | [phone] | | | +--------+--------+ + + + [...] Telephone Encounter - Anisa Massey RN - 02/16/2019 11:35 AM PDTPrescription authorization for Phentermine called in to patient's preferred pharmacy. elephone Encounter - Rhona Fortune MA - 02/15/2019 12:38 PM PDT Refill Request For: Requested Prescriptions Pending Prescriptions Disp Refills phentermine 37.5 mg oral tablet 90 tablet 1 Sig: Take 1 tablet by mouth once daily in the morning. Administer before breakfast. Patient Last Seen By Ordering Provider: Last Appointment in [facility] was on at 3:36 pm with Randell Franks MD. Follow Up Plan: Next Appointment in [facility] is on 06/30/19 at 11:15 am with Beronica Franks MD. Please review and sign if appropriate elephone Encounter - Re Evy colindres - 02/15/2019 11:34 AM PDTREFILL REQUEST Person calling: Pt Medication(s) Needed: PHENTERMINE 37.5 mg oral tablet Pharmacy (Name & Location) Preference: [facility]. [place] How many days worth of medication does patient have left? 14 days Pt reports that she had it filled at another pharmacy in a different city and therefore sood s not have access to the refill that is left. She will need a new script. documented in this encounter Plan of Treatment +--------+ + + + + | Date | Type | Specialty | Care Team | Description | +--------+ + + + + | 04/04/ | Telephone-S | Surgery | Orquidea Cristobal, | | | 2019 | sherrill | | PROGRAM REVIEW DIRECTOR [address] | | | | | | [place], [place] | | | | | | [address] | | | | | | [phone] | | | | | | | | +--------+ + + + + documented as of this encounter Visit Diagnoses Not on filedocumented in this encounter"
--- OUTSIDE RECORDS SUMMARY | ~2020-03-26 | XMS | Encounter Summary ---
Demographics + + + | Address | [address] | | | [place] [address] | + + + | Home Phone | | + + + | Preferred Language | Unknown | + + + | Marital Status | | + + + | Anabaptist Affiliation | Unknown | + + + | Race | White | + + + | Ethnic Group | Not or | + + + Author + + + | Author | [facility] | | | and [place] | + + + | Organization | [facility] | | [...] Team Providers + +------+ + | Care Case Management Coordinator Name | Role | Phone | + +------+ + PCP | Unavailable | + +------+ + Encounter Details +--------+ + + + + | Date | Type | Department | Care Team | Description | +--------+ + + + + | // | Orders Only | [facility] | Dharmesh Escobar, | | | 2018 | | NEPHROLOGY [place] | SLURRY CONTROL OPERATOR HELPER [address] | | | | | [address] | [address] | | | | | [address] [place], [place] | [place] | | | | | [address] | [address] | | | | | [phone] | [phone] | | | | | | | [...] [address]Y | | | | | | [place] [address] | | | | | | [phone] | | | | | | | | +--------+ + + + + | 04/18/ | Procedure | Neurology | Camille De La Paz, | | | 2019 | visit | | [address] | | | | | | [address] | | | | | | [place] [address] | | | | | | [phone] | | | | | | | | +--------+ + + + + documented as of this encounter Procedures + +--------+ + + + | Procedure Name | Priori | Date/Time | Associated Diagnosis | Comments | | | ty | | | | + +--------+ + + + | EXTERNAL LAB: CBC | Routin | 09/27/2018 | | Results for this | | | e | 4:16 PM | | procedure are in the | | | | PST | | results section. | + +--------+ + + + | PROTEIN/CREATININE | Routin | 09/27/2018 | | Results for this | | RATIO, URINE | e | 4:16 PM | | procedure are in the | | | | PST | | results section. | + +--------+ + + + | URIC ACID | Routin | 09/27/2018 | | Results for this | | | e | 4:16 PM | | procedure are in the | | | | PST | | results section. | + +--------+ + + + | PARATHYROID HORMONE, | Routin | 09/27/2018 | | Results for this | | INTACT | e | 4:16 PM | | procedure are in the | | | | PST | | results section. | + +--------+ + + + | MAGNESIUM | Routin | 09/27/2018 | | Results for this | | | e | 4:16 PM | | procedure are in the | | | | PST | | results section. | + +--------+ + + + | RENAL FUNCTION PANEL | Routin | 09/27/2018 | | Results for this | | | e | 4:16 PM | | procedure are in the | | | | PST | | results section. | + +--------+ + + + documented in this encounter Results Protein/Creatinine Ratio, Urine (09/27/2018 4:16 PM PST) + + + + + + | Component | Value | Ref Range | Performed | Pathologist | | | | | At | Signature | + + + + + + | Protein/Cre | 722.2 (A) | 0 - 150 | EXTERNAL [...] + +---------+ + + External Lab: CBC (09/27/2018 4:16 PM PST) + + + + + + | Component | Value | Ref Range | Performed | Pathologist | | | | | At | Signature | + + + + + + | WBC | 10.7 | 4.5 - 11.0 10 | EXTERNAL | | | | | | LAB | | + + + + + + | Non- | 5.20 (A) | 3.8 - 5.1 10 | EXTERNAL | | | Red Blood | | | LAB | | | Cells | | | | | | Counted | | | | | + + + + + + | Hemoglobin | 15.1 | 12.0 - 16.0 | EXTERNAL | | | | | g/dL | LAB | | + + + + + + | Hematocrit, | 46.3 (A) | 35 - 45 % | EXTERNAL | | | POC | | | LAB | | + + + + + + | MCV | 89.1 | 81 - 99 fL | EXTERNAL | | | | | | LAB | | + + + + + + | MCH | 29 | 27 - 33 pg | EXTERNAL | | | | | | LAB | | + + + + + + | MCHC | 33 | 30 - 36 g/dL | EXTERNAL | | | | | | LAB | | + + + + + + | Platelet | 328 | 140 - 440 K/ L | EXTERNAL | | | Count | | | LAB | | | Plasma | | | | | + + + + + + | RDW-CV | 13.2 | 10.5 - 15.0 % | EXTERNAL [...] + + + | % Segmented | 48.4 | 39 - 80 % | EXTERNAL | | | | | | LAB | | | Neutrophils | | | | | + + + + + + | % | 40.5 | 24 - 44 % | EXTERNAL | | | Lymphocytes | | | LAB | | + + + + + + | % Monocytes | 8.0 | 0 - 12 % | EXTERNAL | | | | | | LAB | | + + + + + + | % | 2.6 | 0 - 6 % | EXTERNAL | | | Eosinophils | | | LAB | | + + + + + + | % Basophils | 0.5 | 0 - 2 % | EXTERNAL | | | | [...] | + +---------+ + + Uric Acid (09/27/2018 4:16 PM PST) + +---------+ + + + | Component | Value | Ref Range | Performed | Pathologist | | | | | At | Signature | + +---------+ + + + | Uric Acid | 9.1 (A) | 2.3 - 6.6 | EXTERNAL [...] + +---------+ + + Parathyroid Hormone, Intact (09/27/2018 4:16 PM PST) + + + + + + | Component | Value | Ref Range | Performed | Pathologist | | | | | At | Signature | + + + + + + | PTH INTACT | 313.5 (A) | 15 - 65 pg/mL | [...] | | + +---------+ + + Magnesium (09/27/2018 4:16 PM PST) + +---------+ + + + | Component | Value | Ref Range | Performed | Pathologist | | | | | At | Signature | + +---------+ + + + | Magnesium | 1.5 (A) | 1.7 - 2.5 mg/dL | EXTERNAL [...] + +---------+ + + Renal Function Panel (09/27/2018 4:16 PM PST) + +---------+ + + + | Component | Value | Ref Range | Performed | Pathologist | | | | | At | Signature | + +---------+ + + + | Glucose, | 110 (A) | 70 - 100 mg/dL | EXTERNAL | | | Fasting | | | LAB | | + +---------+ + + + | BUN | 10 | 6 - 23 mg/dL | EXTERNAL | | | | | | LAB | | + +---------+ + + + | Creatinine | 0.72 | 0.60 - 1.35 | EXTERNAL | | | | | mg/dL | LAB | | + +---------+ + + + | PHOSPHORUS | 3.1 | 2.5 - 5.0 mg/dL | EXTERNAL | | | | | | LAB | | + +---------+ + + + | Albumin | 3.6 | 3.5 - 5.0 | EXTERNAL | | | | | | LAB | | + +---------+ + + + | Na | 143 | 132 - 143 | EXTERNAL | | | | | mmol/L | LAB | | + +---------+ + + + | K | 4.2 | 3.6 - 5.1 | EXTERNAL | | | | | mmol/L | LAB | | + +---------+ + + + | Cl | 101 | 95 - 112 mmol/L | EXTERNAL | | | | | | LAB | | + +---------+ + + + | CO2 | 28 | 19 - 31 mmol/L | EXTERNAL | | | | | | LAB | | + +---------+ + + + | Anion Gap | 17.2 | 7 - 21 mmol/L | EXTERNAL | | | | | | LAB | | + +---------+ + + + | eGFR, | | | EXTERNAL | | | non- | | | LAB | | | Burmese | | | | | + +---------+ + + + | Phosphorus, | | | EXTERNAL | | | Inorganic | | | LAB | | + +---------+ + + + | BUN/Creatin | 13.9 | 6.0 - 28.6 | EXTERNAL | | | ine Ratio | | | LAB | | + +---------+ + + + | Calcium | 9.1 | 8.5 - 10.3 | EXTERNAL | | | | | mg/dL | LAB | | + +---------+ + + + | Estimated | 89 | 60 - 140 mg/dL | EXTERNAL | | | GFR [...]
--- OUTSIDE RECORDS SUMMARY | ~2020-03-26 | XMS | Encounter Summary ---
Demographics + + + | Address | [address] | | | [place] [address] | + + + | Home Phone | | + + + | Preferred Language | Unknown | + + + | Marital Status | | + + + | Zoroastrianism Affiliation | Unknown | + + + | Race | White | + + + | Ethnic Group | Not or | + + + Author + + + | Author | [facility] | | | and Jeffana | + + + | Organization | [facility] | | | and [...] Providers + +------+ + | Care Casting Machine Service Operator Name | Role | Phone | [...] Closed | | Radiology | Diagnoses | Kerkhoven, | [facility] | | | | | Deep vein | Dharmesh | Intra Op [id number] | | | | | thrombosis | MD Natan | [address] | | | | | (DVT) of | [address] | [place], [place] | | | | | left lower | [address] | [address] | | | | | extremity, | [address] | Phone: | | | | | unspecified | [place], [place] | [phone] | | | | | chronicity, | [id number] | Fax: | | | | | unspecified | Phone: | [phone] | | | | | vein (HCC) | [phone] | | | | | | Procedures | Fax: | | | | | | IR Removal | [phone] | | | | | | Fibrin [...] Closed | | Radiology | Diagnoses | Ruiz, | [facility] | | | | | Deep vein | Dharmesh | Intra Op [id number] | | | | | thrombosis | MD Natan | [address] | | | | | (DVT) of | [address] | [place], [place] | | | | | left lower | [address] | [address] | | | | | extremity, | [address] | Phone: | | | | | unspecified | [place], [place] | [phone] | | | | | chronicity, | [id number] | Fax: | | | | | unspecified | Phone: | [phone] | | | | | vein (HCC) | [phone] | | | | | | Procedures | Fax: | | | | | | IR Removal | [phone] | | | | | | Fibrin | | | | | | | Sheath/Clot | | | | | | | on Device | | | +--------+--------+ + + + + Encounter Details +--------+ + + + + | Date | Type | Department | Care Team | Description | +--------+ + + + + | 06/22/ | Hospital | [facility] | Dharmesh Melchor | Deep vein thrombosis | | 2019 | Encounter | CENTER CV [facility]TRA OP | MD Natan [address] | (DVT) of left lower | | | | [address] | [address] | extremity, | | | | [place], [place] | [place] [address] | unspecified | | | | [address] | [phone] | chronicity, | | | | [phone] | | unspecified vein | | | | | Christian Dawson MD | (HCC) | | | | | [address] | | | | | | [place], [place] | | | | | | [address] | | | | | | | [...] + documented in this encounter Discharge Instructions Sheree Palacio RN - 06/22/2019 Picc line Catheter Removal [...] notice any of the signs, [facility] at between 8:00 am and 5:00 pm, [...] + + | ALPRAZolam (XANAX) | Take 1 mg by mouth 3 | | 0 | 03/06/20 | | | 0.5 mg tablet | times daily as | | | 16 | | | | needed Twice a day. | | | | | + + + +---------+ + + | ascorbic acid | Take 1,000 mg by | | 0 | 10/20/19 | | | (VITAMIN C) 500 MG | mouth Daily. | | | 19 | | | tablet | | | | | | + + + +---------+ + + | | Take 4 tablets by | | 0 | | | | Kbevdre-Lzlvmagrl-No | mouth 2 times daily. | | | | | | tamin D (CITRACAL | | | | | | | CALCIUM+D PO) | | | | | | + + + +---------+ + + | cyanocobalamin | Take 1,000 mcg by | | 0 | | | | (VITAMIN B-12) 1000 | mouth Daily. | | | | | | MCG tablet | | | [...] | | | (MAG-OX) 400 mg | 2 [...] +---------+ + + | potassium chloride | 40 mEq. | | 0 | | | | [...] + + +---------+ + + | thyroid (BUSINESS DATABASE ANALYST | BUSINESS DATABASE ANALYST Thyroid 30 mg | | 0 | | | | THYROID) 30 mg | tablet TAKE ONE | | | | | | tablet | TABLET BY MOUTH ONCE | | | | | | | DAILY | | | | | + + + +---------+ + + | topiramate | 100 mg 3 times | | 0 | | | | (TOPAMAX) 50 MG | daily. [...] mg | nightly. | | | | 0 | | tablet | | | | | | + + + +---------+ + + | haloperidol | Take 10 mg by mouth | | 0 | | | | (HALDOL) 10 MG | 3 times daily as | | | | 0 | | tablet | needed. | | | | | + + + +---------+ + + | meclizine | Take 25 mg by mouth | | 0 | | | | (ANTIVERT) 25 mg | every morning. | | | | 0 | | tablet | | | | | | + + + +---------+ + + | promethazine | promethazine 25 | | 0 | | | | (PHENERGAN) 25 mg/mL | mg/mL injection | | | | 0 | | (IV ONLY) injection | solution [...] 6 hours as | | | | 0 | | tablet | needed. | | | | | + + + +---------+ + + | traZODone | Take 150 mg by mouth | | 0 | | | | (DESYREL) 150 MG | nightly. | | | | 0 | | tablet | | | | [...] Sheree Snow RN at 06/22 10:36 AM PSTLuisrSheree colindres RN - 06/22/2019 10:00 AM PSTPt c/o [...] and no drainage from the site. Per no labs or IV needed for this procedure.Electronically signed by Sheree Snow RN at 2018 10:17 AM PSTdocumented in this encounter H&P Notes Christian Dawson MD - 06/22/2019 10:00 AM PSTFormatting of this note might be different fro m the original. Vascular & Interventional Radiology History and Physical Patient Name: Elzbieta Cristina Date of : 1975 Consulting Provider: Christian Dawson MD/PhD Reason for Referral and Chief Complaint: RUE clot, PICC line removal History of Present Illness: Elzbieta Cristina is a 44 y.o. female with RUE PICC line for hydration, present since 02/2019 , found to have RUE DVT. I was asked to see Elzbieta for PICC line removal. She is currently t herapeutic on coumadin. Hospital Problem List: Patient Active Problem List Diagnosis Abdominal pain Anasarca Acute right-sided low back pain without sciatica Anemia Bipolar disorder Candidal intertrigo Chronic diastolic heart failure Decreased mobility Deep vein thrombosis (DVT) of left lower extremity Diabetes mellitus type 2 without retinopathy Diabetes mellitus with insulin therapy DM (diabetes mellitus) YO (dyspnea on exertion) Edema Hernia of anterior abdominal wall History of Frandy-en-Y gastric bypass History of pulmonary embolism History of sinus tachycardia History of stroke Hyperlipidemia Hyperuricemia Hypoalbuminemia Hypokalemia Hypothyroidism Morbid obesity with alveolar hypoventilation STEFANO (iron deficiency anemia) Immobility Impaired intestinal absorption Lipoedema Migraine headache Moderate depressed bipolar I disorder PCOS (polycystic ovarian syndrome) Personal history of DVT (deep vein thrombosis) Right heart failure Severe muscle deconditioning Skin breakdown Obstructive sleep apnea syndrome Vitamin D deficiency Family history of malignant neoplasm of genital organ Foot infection Influenza vaccine needed Nonallopathic lesion of cervical region Nonallopathic lesion of thoracic region Abdominal hernia Abrasion of back with infection Abrasion or friction burn of ear without infection Acute bronchitis Acute maxillary sinusitis Chronic maxillary sinusitis Acute stress disorder Anxiety disorder Panic Allergic rhinitis due to pollen Anal pain Atopic dermatitis Cellulitis of lower limb Chronic pain syndrome Dysmenorrhea Cough Diarrhea Diverticulitis of colon Dysuria Elevated international normalized ratio (INR) Family history of arthritis Family history of asthma Family history of diabetes mellitus Family history of ischemic heart disease Family history of malignant neoplasm of gastrointestinal tract Family history of malignant neoplasm of trachea, bronchus, and lung Family history of mental disorder Family history of neurological disorder Family history of stroke Family history of sudden Fatigue Foot pain Pain in lower limb Furuncle Gastroesophageal reflux disease Injury of kidney External hemorrhoids without complication Internal hemorrhoids without complication Left upper quadrant pain Menometrorrhagia Muscle strain Nausea and vomiting Neck pain Open wound of anterior abdominal wall Osteoarthritis of knee Pain in joint Pain in joint involving pelvic region and thigh Primary localized osteoarthritis of pelvic region and thigh Muscle pain Persistent insomnia Pharyngitis Physical deconditioning Polyuria Postoperative pain Postoperative seroma Pulmonary embolism Pyelonephritis Serous otitis media Neck sprain Sprain of jaw Staphylococcal infectious disease Stasis dermatitis Thromboembolism of vein Tinea corporis Acute upper respiratory infection Upper respiratory infection Urinary tract infectious disease Variants of migraine with intractable migraine Wheezing Flank pain Pain in pelvis Periumbilical pain Right lower quadrant pain Suprapubic pain Chronic left-sided congestive heart failure Depressive disorder Moderate bipolar disorder Deep vein thrombosis of lower extremity Type 1 diabetes mellitus Recurrent ventral hernia Ventral incisional hernia HTN, goal below 130/80 Hypokalemia, excessive renal losses Morbid obesity Obesity Lymphedema Peripheral edema Migraine Sleep apnea with use of continuous positive airway pressure (CPAP) History of bariatric surgery Review of Systems: Review of Systems Constitutional: Negative. HENT: Negative. Eyes: Negative. Respiratory: Negative. Cardiovascular: Negative. Gastrointestinal: Negative. Genitourinary: Negative. Musculoskeletal: RUE pain, abdominal wall pain Skin: Negative. Neurological: Negative. Endo/Heme/Allergies: Negative. Psychiatric/Behavioral: Negative. All other systems negative. Code Status: No Order Past Medical History: Past Medical History: Diagnosis Date Abdominal pain 02/07/2014 Acute on chronic congestive heart failure with right ventricular diastolic dysfunction (HCC) 10/26/2015 Overview: [facility] Last Assessment & Plan: Patient with morbid obesity (BMI 100 at admissio n), history of right heart failure in the setting of DVT and presumed PE presented with 100 lb weight gain. Concern for recurrent RV failure, but etiology is unclear (questionable medi cation compliance and possible polydipsia). Her ECHOs from 10/2015 and 12/2015 with presumed n ormal RV/LV normal function, EF of Acute on chronic systolic right heart failure (HCC) 02/03/2019 Acute on chronic systolic right heart failure (HCC) 02/03/2019 Acute on chronic systolic right heart failure (HCC) 02/03/2019 Acute right-sided low back pain without sciatica 10/20/2016 Anasarca 11/06/2015 Anemia 06/16/2013 Benign essential HTN 02/02/2017 Bipolar disorder (HCC) 02/03/2019 Last Assessment & Plan: Complicated by agoraphobia / anxiety Home meds: xanax 1mg qAM, 2m g qHS, prozac 60mg qHS, zyprexa 30mg qHS, topamax 200mg BID -Continued on prozac 60mg, zypre xa 30mg qhs -She was changed to low dose alprazolam to 0.5-1 bid prn and encouraged to use m inimally to prevent oversedation and worsening hypoxia/AMARA; she mostly required 0.5mg qhs to help tolerate her new BiPAP -Cont Candidal intertrigo 06/16/2013 Chronic diastolic heart failure (HCC) 12/25/2015 Last Assessment & Plan: Heart failure of preserved EF- recent DVT/PE/Cellulitis/ morbid o besity Pickwickian syndrome Recent admission to [facility] for 100lb weight gain- DC on diuresis on 03/06/2016- she feel improved She was on Metolazone and Torsem javier prior to hospitalization- both have better bioavailability than lasix in gut edema but s he retained 100lbs - how ever she Decreased mobility 06/16/2013 Deep vein thrombosis (DVT) of left lower extremity (HCC) 10/26/2015 Last Assessment & Plan: Diagnosed in 10/2015, at that time had presumed PE. Started on war farin, presented with INR of 2.8 (making recurrent PE less likely). -continue warfarin per romeo guadalupe, I would recommend life long therapy but will defer her to PCP Overview: LE Doppler (Nov 07, 2015 ++ DVT LLE The left mid and distal femoral vein and popliteal vein are non compressible with hypoechoic clot w Diabetes mellitus type 2 without retinopathy ([facility]) 04/14/2013 Diabetes mellitus with insulin therapy ([facility]) 12/27/2014 DM (diabetes mellitus) ([facility]) 05/09/2016 Overview: A1c 5.29 Aug 2014 Last Assessment & Plan: Last A1c in Care Everywhere is 5.3. As an outpatient the patient is on metformin, lantus 67 units in AM and aspart 25 units with meals and SSI. Blood sugar control is adequate here (range 130-160) - Remains on DM diet 45 g carb to help encourage weight loss - Managed with NPH 5u BID with good control, so we will continue this at home - Resume Me YO (dyspnea on exertion) 11/06/2015 Edema 04/14/2013 Last Assessment & Plan: Edema. 41yo WF, with morbid obesity, she is enrolled in e [facility] bariatric program. She has lost approximately 50 pounds, states that she needs to lo se more weight before she can have her surgery that she is hoping to have. Recently seen in the emergency room, right leg discomfort. She does have changes of DJD, but there is no fr acture or dislocation. Negative f Hernia of anterior abdominal wall 06/16/2013 History of bariatric surgery 04/26/2018 History of pulmonary embolism 02/02/2017 History of sinus tachycardia 04/26/2018 History of stroke 04/26/2018 Hypertension 06/16/2013 Hyperuricemia 04/21/2016 Hypoalbuminemia 11/11/2015 Hypokalemia 04/21/2016 Hypothyroidism 08/28/2014 Last Assessment & Plan: TSH WNL 10/2015. [facility] as [facility]. -TSH WNL -continu e supplementation here Hypoventilation associated with obesity (HCC) 06/16/2013 Last Assessment & Plan: [facility] Bariatric Program, has lost 50lbs. STEFANO (iron deficiency anemia) 02/03/2019 Overview: Presumed due to menses. Venofer 200 qd x 30 October 2015 [facility] Last Assessment & P sharon: Hgb appears to run 9-11 in review of records. No concerns of bleeding, hgb not checked here. -continue to monitor with hgb prn Immobility 02/02/2017 Impaired intestinal absorption 03/10/2018 Lipoedema 11/28/2016 Migraine headache 12/05/2013 Overview: Uses topamax for ppx and eletriptan prn Moderate depressed bipolar I disorder (HCC) 11/27/2009 Partial nodular transformation of liver PCOS (polycystic ovarian syndrome) 06/16/2013 Personal history of DVT (deep vein thrombosis) 02/02/2017 Right heart failure (HCC) 11/07/2015 Overview: TTE 11/07/2015 The interpretation of images is limited by poor acoustic windows . 2. The left ventricular cavity size is normal. 3. The LV ejection fraction is normal. 4. T he right ventricular size is moderately enlarged. 5. moderately enlarged RV & Moderately red uced RV systolic function, The RV TDI s' velocity is 9cm/sec * IVC is non-dilated & with normal respiratory variation. 6. Severe muscle deconditioning 02/02/2017 Skin breakdown 06/16/2013 Vitamin D deficiency 06/16/2013 Overview: Ergo 50K 2x/wk since October 2015 Past Surgical History: Past Surgical History: Procedure Laterality Date ANKLE SURGERY Left APPENDECTOMY CHOLECYSTECTOMY DILATION AND CURETTAGE OF UTERUS GASTRIC BYPASS SURGERY 03/01/2018 HERNIA REPAIR SINUS SURGERY TONSILLECTOMY Family History: Family History Problem Relation Age of Onset Diabetes Mother Alcohol abuse Mother Hypertension Mother Obesity Mother Arthritis Mother Heart disease Father Alcohol abuse Father Hypertension Father Asthma Father Obesity Father Arthritis Father Heart disease Maternal Grandmother Lupus Sister Obesity Sister Asthma Brother Asthma Daughter Social History: Social History Socioeconomic History Marital status: Spouse name: Not on file Number of children: Not on file Years of education: Not on file Highest education level: Not on file Tobacco Use Smoking status: Never Smoker Smokeless tobacco: Never Used Substance and Sexual Activity Alcohol use: Not Currently Drug use: Never Medications and Allergies: Current Medications: (Not in a hospital admission) @ENCMED@ Allergies: Allergies Allergen Reactions Diphenhydramine Anaphylaxis, Hives and Swelling Amoxicillin Hives and Rash Bromocriptine Other (See Comments) and Unknown Blood clot and stroke Blood clots Blood clots Penicillin G Hives Zofran [Ondansetron] Hives Labs: 3 Day Labs: No results for input(s): WBC, HGB, HCT, PLT, NA, K, CL, CO2, BUN, CREATININE, GLUCOSE, CALC IUM, PHOS, MG, SGPT, ALKPHOS, ALBUMIN, BILITOT, PT, PTT, INR, BNP, TSH in the last 168 hours . Invalid input(s): SGOT, PROT, HGBA1C Imaging/Procedures: Pertinent Studies and Results Imaging Data: No results found. Physical Examination: Vitals: 06/22/19 1009 BP: 124/76 Pulse: 76 Resp: 17 Temp: Physical Exam Constitutional: She is oriented to person, place, and time and well-developed, well-nourish ed, and in no distress. HENT: Head: Normocephalic. Neck: Normal range of motion. Cardiovascular: Normal rate. Pulmonary/Chest: Effort normal. Abdominal: Soft. There is tenderness. Reddened, swollen, indurated area around a RLQ lovenox injection site Neurological: She is alert and oriented to person, place, and time. GCS score is 15. Skin: Skin is warm and dry. Psychiatric: Mood and affect normal. Plan for Sedation: IV Conscious Sedation with Fentanyl and Versed. Moderate Sedation Presedation Assessment completed. The patient was reassessed immediately prior to sedation with no significant clinical ayala es in the exam, including heart and lungs, since the completion of H&P ASA Classification: 2 Mallampati Classification: 2 Consent: Risks, alternatives, and benefits of the procedure were discussed with the patient. Questio ns were answered. Signed and verbal consent were given as witnessed by staff. Pre-Procedure Diagnosis: RUE DVT, PICC line not in use Procedure to be performed: PICC line removal Assessment and Plan: 44F w RUE DVT, PICC line. - PICC line removal today - No indication for venogram or intervention. Maintain patient on anticoagulation. - Would recommend antibiotics for abdominal lovenox injection site that appears indurated a nd reddened. Christian Dawson MD/PhD Vascular and Interventional Radiology documented in this en counter Miscellaneous Notes Brief Op Note - Christian Dawson MD - 06/22/2019 10:00 AM PSTInterventional Radiology Post Procedure Note Patient Name: Elzbieta Cristina Date of : 1975 Procedure(s): RUE PICC line removal Pre OP Diagnosis: RUE DVT Post OP Diagnosis: Same Preparer Samples And Repairs: Christian Dawson MD/PhD Anesthesia Type: No sedation Findings: Successful PICC line removal Specimens: None EBL: <2 mL Complications: None PLAN: Continue anticoagulation A full report will follow in the imaging section. Christian Dawson MD/PhD Interventional Radiologist and Vascular Medicine Specialist documented in this en counter Plan of Treatment +--------+ + + + + | Date | Type | Specialty | Care Team | Description | +--------+ + + + + | 03/29/ | Office | Cardiology | Sulema Altamirano | | | 2019 | Visit | | [address] | | | | | | [address] | | | | | | [place] [address] | | | | | | [phone] | | | | | | | | +--------+ + + + + | 04/18/ | Procedure | Neurology | Camille De La Paz, | | | 2019 | visit | | [address] | | | | | | [address] | | | | | | [place] [address] | | | | | | [phone] | | | | | | | [...]
--- OUTSIDE RECORDS SUMMARY | ~2020-03-26 | XMS | Encounter Summary ---
Demographics + + + | Address | [address] | | | [place] [address] | + + + | Home Phone [...] + | Katalina Padilla | ECON | [address] | | | | | [place], [place] | | | | | [address] | | + + + + + | Ellei Vang | ECON | Unknown | | + + + + + Care Team Providers + +------+ + | Care Med Asst Name | Role | Phone | + +------+ + | Radha Goodrich DO | PCP | | + +------+ + Reason for Visit + + + | Reason | Comments | + + + | Referral | Incarcerated hernia | + + + AUTH/CERT +--------+--------+ + [...] + + + + | 01/01/ | Emergency | [facility] Emergency | Fide Hester | | | 2017 - | | Department [address] | MD [address] [facility] | | | | | [address] | [address] | | | 01/02/ | | [facility] | [place], [place] | | | 2017 | | [place], [place] | [address] | | | | | [address] | [phone] | | | | | [phone] | | | | | | | Jaime Yee, | | | | | | ANP [address] | | | | | | [address] | | | | | | [place], [place] | | | | | | [address] | | | | | | [phone] | | | | | | | | | | | | Sheree Aguiar MD | | | | | | [address] | | | | | | [place], [place] | | | | | | [address] | | | | | | | | | | | | Felix Cardoza, | | | | | | MATERIAL FLOW ENGINEER [address] | | | | | | [address] [facility] [address] | | | | | | [place], [place] | | | | | | [address] | | | | | | [phone] | | | | | | | [...] + + + | Blood Pressure | 133/83 | 01/02/2017 11:23 AM | | | | | PDT | | + + + + + | Pulse | 84 | 01/02/2017 6:00 AM | | | | | PDT | | + + + + + | Temperature | 36.4 C (97.6 F) | 01/02/2017 11:24 AM | | | | | PDT | | + + + + + | Respiratory Rate | 18 | 01/02/2017 11:24 AM | | | | | PDT | | + + + + + | Oxygen Saturation | 96% | 01/02/2017 11:24 AM | | | | | PDT | | + + + + + | Inhaled Oxygen | - | - | | | Concentration | | | | + + + + + | Weight | 174.6 kg (385 lb) | 01/01/2017 9:17 AM | | | | | PDT | | + + + + + | Height | - | - | | + + + + + | Body Mass Index | 72.75 | 11/28/2016 9:55 AM | | | | | PDT | | + + + + + documented in this encounter Discharge Instructions Instructions Felix Cardoza FNP - 01/02/2017You were admitted to ED Observation Unit to monitor and treatment pain with abdominal hernia. You were evaluated by surgery team who f ound no signs of incarcerated bowel. Your pain was controled and you were started on a cassandra l regimen to help keep stools soft and reduce risk of incarceration. The surgery team taugh t you how to reduce your hernia properly and you felt comfortable administering it. You ar e now ready for discharge. Thank you for choosing [facility] for your healthcare needs. Abdominal Hernia Repair: Before Your Surgery What is abdominal hernia repair surgery? An abdominal hernia repair is a type of surgery. It fixes a problem called a hernia. A marguerite ia is a bulge under the skin in your belly. It happens when you have a weak spot in your bel ly muscles and a piece of your intestines or tissues pokes through your muscles. This can ca use pain. You may notice the pain most when you lift something heavy. You can have a hernia near your belly button. Or it may be in a scar from an earlier surger y. To fix it, the doctor will do one of two kinds of surgery. In open surgery, the doctor nupur kes one cut near the hernia. This cut is called an incision. In laparoscopic surgery, the do ctor makes several very small incisions and uses a thin, lighted scope and small tools. In e ither type of surgery, the doctor pushes the bulge back in place, if needed. Then the doctor sews the healthy tissue back together. Often the doctor patches the weak spot with a piece of material. Laparoscopic surgery leaves several small scars. Open surgery leaves one long scar. The sca rs fade with time. You will probably need to take 1 to 2 weeks off from work. But if your job requires heavy l ifting or other physical work, you may need to take 4 to 6 weeks off. Follow-up care is a de la cruz part of your treatment and safety. Be sure to make and go to all ap pointments, and call your doctor if you are having problems. It's also a good idea to know y our test results and keep a list of the medicines you take. What happens before surgery? Surgery can be stressful. This information will help you understand what you can expect. An d it will help you safely prepare for surgery. Preparing for surgery Understand exactly what surgery is planned, along with the risks, benefits, and other op tions. Tell your doctors ALL the medicines, vitamins, supplements, and herbal remedies you take . Some of these can increase the risk of bleeding or interact with anesthesia. If you take blood thinners, such as warfarin (Coumadin), clopidogrel (Plavix), or aspiri n, be sure to talk to your doctor. He or she will tell you if you should stop taking these m edicines before your surgery. Make sure that you understand exactly what your doctor wants y ou to do. Your doctor will tell you which medicines to take or stop before your surgery. You may n eed to stop taking certain medicines a week or more before surgery. So talk to your doctor a s soon as you can. If you have an advance directive, let your doctor know. It may include a living will and a durable power of criminal defense attorney for health care. Bring a copy to the hospital. If you don't hav e one, you may want to prepare one. It lets your doctor and loved ones know your health care wishes. Doctors advise that everyone prepare these papers before any type of surgery or pro cedure. What happens on the day of surgery? Follow the instructions exactly about when to stop eating and drinking. If you don't, yo ur surgery may be canceled. If your doctor told you to take your medicines on the day of emerson jerrica, take them with only a sip of water. Take a bath or shower before you come in for your surgery. Do not apply lotions, perfume s, deodorants, or nail bahamian. Do not shave the surgical site yourself. Take off all jewelry and piercings. And take out contact lenses, if you wear them. At the hospital or surgery center Bring a picture ID. The area for surgery is often marked to make sure there are no errors. You will be kept comfortable and safe by your anesthesia provider. You will be asleep du ring the surgery. The surgery will take 30 minutes to 2 hours. It depends on how large the hernia is and w here it is. Going home Be sure you have someone to drive you home. Anesthesia and pain medicine make it unsafe for you to drive. You will be given more specific instructions about recovering from your surgery. They wi ll cover things like diet, wound care, follow-up care, driving, and getting back to your [facility] routine. When should you call your doctor? You have questions or concerns. You don't understand how to prepare for your surgery. You become ill before the surgery (such as fever, flu, or a cold). You need to reschedule or have changed your mind about having the surgery. Where can you learn more? To learn more about "Abdominal Hernia Repair: Before Your Surgery", log into your ChatStat a ccount at [email or web address]. You can enter U288 in the "Health Library" search box . Not on LocateBaltimorehart? Review the LocateBaltimorehart section of your After Visit Summary for directions on anjel w to sign up. Current as of: March 04, 2016 Content Version: 11.2 3122-6656 [employer]. Care instructions adapted under license by [facility]. If you have questions about a medical condition or this instr uction, always ask your healthcare professional. [employer] disclaims any curly anty or liability for your use of this information. Learning About How to Prepare for Weight-Loss Surgery How can you prepare for weight-loss surgery? Having weight-loss surgery (also called bariatric surgery) is a big step. You can prepare f or surgery by having a plan. Your plan may include your goals for losing weight and how to m akes changes in your diet, activity, and lifestyle to help raise your chances of success. One way to prepare for surgery is to think about your goal or reason why you want to reach a healthy weight. Do you want to lower your blood pressure, cholesterol, or blood sugar? Do you want to be able to sleep better, play with your kids, or walk around the block? Having a reason can help you stay with your plan and meet your goals. Your weight-loss surgery team can help you meet your goals and get ready for surgery. You'l l work with a team that's trained to help you lose weight and make healthy changes in your l komal. This team may include: A medical doctor or nurse to help manage your care and schedule tests before surgery. A surgeon who specializes in weight-loss surgery. A registered dietitian to help you plan meals and make changes in the way you eat. An clinical nurse specialist to help you be more active and get stronger. A therapist or counselor to help you learn why you eat and teach you ways to deal with s tress and your emotions. Your team will also be there to help you prepare for life after surgery. They will help you adjust to new ways of eating and changes to your body. How will weight-loss surgery affect your life? You have likely thought a lot about how surgery may affect your life how you will eat, ho w your body will look, or how you will feel. Some people feel overwhelmed with these changes . But planning can help you prepare for the changes and meet your weight-loss goals. One important step in your plan is to learn about the ways surgery will affect your life. T hese may include: A slimmer you. You probably will lose weight very quickly in the first few months after surgery. As time goes on, your weight loss will slow down. How much weight you lose depends on what type of surgery you had and how well your new eating and activity plans are working for you. A new way of eating. Success in reaching and keeping a healthy weight depends on making lifelong changes in how you eat. After surgery, you raise your chances of success if you: Eat just a few ounces of food at a time. Eat very slowly and chew your food to mush. Don't drink for 30 minutes before you eat, during your meal, and for 30 minutes after yo u eat. Are careful about drinking alcohol. Avoid foods that are high in fat or sugar. Take vitamin and mineral supplements. A healthier you. Weight-loss surgery can have some real health benefits. Problems like d iabetes, high blood pressure, and sleep apnea may go away or at least become easier to man age. A more active you. After surgery, being active on most days of the week will help you re ach your weight goal and avoid gaining back the weight you lose. A lot of extra skin. When you lose weight quickly, you may have a lot of extra skin. Andriy t's normal. You can have surgery to remove the extra skin if it bothers you. There are going to be some ups and downs while you get used to these changes. So another wa y to adjust is to identify who can help support you. Getting support from friends and family can help. And joining a support group for people who have had the surgery can be a big help too, because they know what you're going through. As you know, it's a big decision to have weight-loss surgery. But when you have a plan, you can focus on losing weight and living a healthier life. So what steps can you take to prepa re for weight-loss surgery? Will you set some goals? Will you learn about how surgery can af fect your life? How about asking family or friends for help? Write out your plan. Then get raza huang. Where can you learn more? To learn more about "Learning About How to Prepare for Weight-Loss Surgery", log into your ChatStat account at [email or web address]. You can enter C413 in the "Kidamom" s earch box. Not on ChatStat? Review the LocateBaltimorehart section of your After Visit Summary for directions on anjel aguero to sign up. Current as of: May 08, 2016 Content Version: 11.20055384-3632 [employer]. Care instructions adapted under license by [facility]. If you have questions about a medical condition or this instr uction, always ask your healthcare professional. [employer] disclaims any curly anty or liability for your use of this information. documented in this encounter Medications at Time of Discharge + + + +---------+--------+ + | Medication | Sig | Dispensed | Refills | Start | End Date | | | | | | Date | | + + + +---------+--------+ + | CALCIUM | Take 2 tablets by | | 0 | | | | [id number] | mouth two times | | | [...] documented as of this encounter Progress Notes Mary Ball MD - 01/02/2017 7:49 AM PDT [facility] DEPARTMENT OF SURGERY EMERGENCY GENERAL SURGERY Division of Trauma and Critical Care Attending Physician: Felix Cardoza NP Progress Note Note Date: 01/02/2017 Admission Date: 01/01/2017 DYLAN ROMERO, Hospital Day #1 INTERVAL HISTORY and SUBJECTIVE: - AFF, VSS - NAEO - Pain controlled on PO Oxy and home Fentanyl patch - Unable to wear a binder; RNs have tried putting three together and unable to make it stay - Passing gas, no BM - Tolerated a diet - Ready to go home OBJECTIVE: PHYSICAL EXAM: LAST VITALS: BP 131/78 | Pulse 88 | Temp 36.3 C (97.4 F) | RR 17 | Wt 174.6 kg (385 lb) | SpO2 91% | BMI 72.75 kg/(m^2) 24 Hour Vital Min/Max: Systolic (24hrs), Av , Min:105 , Max:144 Diastolic (24hrs), A v, Min:63, Max:78 GENERAL: Obese young female, ambulating around room, NAD NEURO: awake, alert, and oriented and alert, conversant LUNGS: breathing unlabored on RA CV: RRR ABDOMEN: Obese, soft, mild TTP along ventral hernia. Previous incisions CDI and well healed . Extremities:Warm and well perfused, NROM Labs: No interval studies Imaging: No interval studies ASSESSMENT, MEDICAL DECISION MAKING AND PLAN: DYLAN ROMERO- 41 y.o. y/o female admitted on 01/01/2017 8:22 AM and hospital day 1 with morbid obesity, HTN, diabetes, insomnia, depre ssion, and chronic abdominal pain following several operations for abdominal wall hernias, laci hobbs was flown from [place] with abdominal pain from a recurrent, reducible ventral hernia. Overnight, her pain has been controlled with PO medications as well as Fentanyl patch that s he has from home. She has tolerated a diet and passed gas. PLAN: -- OK for discharge to home -- Provided with return instructions for incarcerated hernia -- Patient can have binder to go home with and perhaps find a way to make it stay or find a larger one through a medical supply store -- Pain medication at discharge per ED provider -- Should follow up with us for hernia repair after bariatric surgery, patient voices under standing and agreement The above findings and plan were discussed with Dr. Gaviria, who agrees, and will disc uss with Dr. Moore. Mary Ball MD [id number] [facility] [address] [facility] [place] [facility] documented in this en counter H&P Notes Jaime Yee ANP - 01/01/2017 5:54 PM PDTFormatting of this note might be different f rom the original. ED OBSERVATION UNIT HISTORY & PHYSICAL: PCP: Radha Goodrich DO ED ATTENDING: Jaime Yee NP Reason for Admission: Referral (Incarcerated hernia) HPI: Dylan Romero is a 41 y.o. female with a PMH s/f DM2, chronic abdominal pain, BMI 70, nu merous hernia repairs, cholecystectomy, depression and bipolar disorder, who [facility] for evaluation of acute on chronic abdominal pain. The pain was sharp, constant, and fo olga lidia at ventral hernia. The pain gradually worsened on Thursday, 12/30, then yesterday (12/31) salma denly and dramatically worsened at about 5 p.m. She initially presented to ED in [place], [place] last night at about 9 p.m. She could not keep down foods, vomited repeatedly. CT scan at [place] did not indicate incarcerated hernia but she was flown here out of concern for inc arcerated hernia in light of absence of flatus or having BMs. Her average abdominal pain is about 4/10 (she is on fentanyl patch for her chronic knee kai n). Her pain is provoked by movement, improved only by laying still. Overall abdominal pain is now improving which she attributes to the oxycodone which I prescribed her earlier. She c urrently has mild nausea which she states has been improved with zofran. No vomiting since s he arrived at [facility]. In the ED Obs Unit she has a normal appetitie, had a diet sprite and davenport dwich. Still not passing gas, no BMs since . She denies any radiation of her abdominal pain. No back pain. No groin pain. No fevers. No chills. No vomiting. No melena or BRBPR. No jaundice. No recent diarrhea. She is menstruati ng a this time. She is losing weight as she is part of bariatric program here at [facility]. She denies any shortness of breath, chest pain, cough, exertional dyspnea. No increased th irst, increased urination, dysuria or urgency. No frequency. No flank pain. Denies any recent GERD sx. Does have hx of DM2 but no gastroparesis. No known lactose intol erance. She does have hx of bowel obstruction which was surgically corrected. Denies any alc ohol use. No known hx of GI cancer. HCG negative in [place], has Nexplanon for contracepti on. Currently menstruating. No dysmenorrhea. Often does have cramps with menses. She recently took motrin for her abd pain, this did not help. She is taking doxycycline for an infection in her right ear, states that she has three more days of this medicine to go. Recently rx'd doxy for otitis media, denies any current ear pain or hearing problems. State s that she takes potassium 60 meq tid for chronic hypokalemia. Upon presentation to the ED, Dylan's vital signs were initially notable for BP 144/7, pulse 113 with otherwise normal vital signs. Physical exam significant for morbidly obese uncomfo rtable non-toxic female, tachycardic, with low midline hernia soft but tender without any pe rioneal signs. Labs notable for hematuria (she is on her menses), mild hypercapnia of 67 and acidosis at 7 .3, CBC without anemia or leukocytosis. She was evaluated by general surgery who stated that since hernia is reducible, pt non-toxic, risk of recurrence near 100%, risk of surgical rep air outweighs benefit. Once stable, the patient was transferred to the Emergency Department Observation Unit with a diagnosis of abdominal for continuation of care including pain control. PAST MEDICAL HISTORY: Past Medical History: Diagnosis Date Abdominal pain Abnormal ThinPrep Pap test of vagina Allergic rhinitis Anemia Anxiety Bipolar disorder ([facility]) Chronic wound infection of abdomen from 2010 Cough Depression Diverticulitis of colon Dizziness Glaucoma Heart burn Hemorrhoids Hernia of abdominal wall Incisional hernia, incarcerated 2012 Insomnia Irregular periods Kidney stone Leaking of urine Leg sore Lymphedema Morbid obesity with body mass index of 70 and over in adult ([facility]) Myalgia and myositis Nausea Neck pain Numbness Osteoarthritis of knee Palpitations Pneumonia Shortness of breath Staphylococcal infection Stroke ([facility]) TIA (transient ischemic attack) due to Bromocriptine Tinea corporis UTI (urinary tract infection) PAST SURGICAL HISTORY: Past Surgical History Procedure Laterality Date Tonsillectomy and adenoidectomy Appendectomy, open 2010 Umbilical hernia repair 2010 Treatment of ankle fracture with screws remaining Incision and drainage of wound abscess x2 midline transverse wound s/p open appendectomy 2010 Ventral hernia repair 10/2012 Dr. Andie Brian Incisional hernia repair 03/01/2015 [facility]/ Dr. Cantu. Primary fascial closure and scar excision MEDICATIONS: Patient's Medications New Prescriptions No medications on file Previous Medications ALPRAZOLAM 1 MG ORAL TABLET Take 1 mg by mouth three times daily as needed for anxiety. ASCORBIC ACID (VITAMIN C) 500 MG ORAL TABLET Take 500 mg by mouth once daily. ASPIRIN EC 81 MG ORAL TABLET,DELAYED RELEASE (DR/EC) Take 81 mg by mouth once daily. CALCIUM [id number]-[id number]-GENIS ORAL Take 2 tablets by mouth two times daily. DAPAGLIFLOZIN (FARXIGA) 5 MG ORAL TABLET Take 1 tablet by mouth once daily. DOXYCYCLINE HYCLATE 100 MG ORAL TABLET Take 100 mg by mouth every twelve hours. (Pharma cist to substitute salt form as needed) ERGOCALCIFEROL (VITAMIN D2) 50,000 UNIT ORAL CAPSULE Take 50,000 Units by mouth twice w eekl (on Thursday and ). FENTANYL 25 MCG/HR TRANSDERMAL PATCH 72 HOUR 1 patch every seventy-two hours. FLUOXETINE 20 MG ORAL TABLET Take 60 mg by mouth once daily at bedtime. GABAPENTIN 300 MG ORAL CAPSULE Take 300 mg by mouth four times daily. HYDROCODONE-ACETAMINOPHEN 10-325 MG ORAL TABLET Take 1 tablet by mouth every four hours as needed. INSULIN NPH 100 UNIT/ML SUBCUTANEOUS SUSPENSION Inject 5 Units under the skin (SUBC) tw o times daily. INSULIN NPH-INSULIN REGULAR 70-30 (RELION NOVOLIN 70/30) 100 UNIT/ML (70-30) SUBCUTANEOUS SUSPENSION Inject 100 Units under the skin (SUBC) once daily in the morning. MAGNESIUM OXIDE 400 MG ORAL TABLET Take 400 mg by mouth once daily. METFORMIN 1,000 MG ORAL TABLET Take 1,000 mg by mouth two times daily. OLANZAPINE 15 MG ORAL TABLET Take 30 mg by mouth once daily at bedtime. PHENTERMINE 37.5 MG ORAL TABLET Take 1 tablet by mouth once daily in the morning. Admin ister before breakfast. POTASSIUM CHLORIDE SR 20 MEQ ORAL TABLET,ER PARTICLES/CRYSTALS Take 2 tablets by mouth two times daily. RANITIDINE 150 MG ORAL TABLET Take 150 mg by mouth once daily as needed. Indications: H EARTBURN SODIUM FLUORIDE 1.1 % DENTAL CREAM Place onto the teeth. Use to brush teeth 2 to 3 mitesh es daily as directed. Do not eat drink or rinse mouth immediately following use. Do not swal low THYROID (ARMOUR THYROID) 30 MG ORAL TABLET TAB Take 30 mg by mouth once daily. TOPIRAMATE 200 MG ORAL TABLET Take 50 mg by mouth two times daily. Indications: Migrain e Prevention TORSEMIDE 100 MG ORAL TABLET Take 100 mg by mouth two times daily. TRAZODONE 150 MG ORAL TABLET Take 150 mg by mouth once daily at bedtime. TRESIBA FLEXTOUCH U-100 100 UNIT/ML (3 ML) SUBCUTANEOUS INSULIN PEN Inject 67 Units und er the skin (SUBC) once daily at bedtime. WARFARIN 10 MG ORAL TABLET Take 1 tablet by mouth once daily in the evening. Modified Medications No medications on file Discontinued Medications No medications on file ALLERGIES: Allergies Allergen Reactions Amoxicillin Benadrilina [Diphenhydramine Hcl] Hives Parlodel [Bromocriptine] Unknown Blood clots Penicillin Hives SOCIAL HISTORY: Social History Social History Marital status: Single Spouse name: N/A Number of children: 1 Years of education: N/A Occupational History disabled None Social History Main Topics Smoking status: Former Smoker Smokeless tobacco: Never Used Alcohol use No Drug use: No Sexual activity: Not on file Other Topics Concern Not on file Social History Narrative Updated 11/09/15 She lives in [place] with her mother and her sister (also her caregiver) lives in an apa rtment/duplex below. She has 2 grandchildren (age 4 and 7) who live with her daughter and son-in-law Her boyfriend lives in [place] FAMILY HISTORY: ROS: Unchanged from recent prior evaluation except as noted in the HPI. PHYSICAL EXAM: General appearance: Adult morbidly obese appearing well nourished and hydrated in NAD. She moves around bed and up to urinate without any evident discomfort. There is no jaundice. HEENT: Normocephalic, atraumatic. Sclera anicteric, without injection, PERRLA, EOMI. Mucous membranes moist, orharynx without exudate, uvula mid-line. Neck supple, no lymphadenopathy , no masses. No evidence of erythema at ear canals or TMs CV: RRR, no rubs, murmurs or gallops. Resp: Chest symmetrical. No respiratory distress. No use of accessory muscles. Breath s ounds equal bilaterally, no wheezes, rales, rhonchi, or rubs GI: Abdomen is protuberent and soft. The hernia is reduced and mildly tender. There is no guard ing or rebound tenderness. BS are positive and normal in all quadrants. There is no rash. No ascites. No CVA tenderness. Extrem: No deformities or visible joint swelling. Peripheral Vascular: No cyanosis or clubbing. No dependent edema. 2+ Posterior Tibial pu lses bilaterally. Neuro: A&O x 3, CN III-XII intact grossly, motor 5/5 in all ext's, sensation intact, fine m otor intact. Psych: Appropriate affect and insight. Skin: Appropriate color, warm, dry. General: Normal activity, good hygiene, appropriate appearance. Level of consciousness: Awake, alert. Orientation: Oriented to person, place, time and situation. Concentration/Attention Span: Normal. Fund of Knowledge/memory: Adequate recent and remote recall. Language: Fluent and articulate without evidence of aphasia or dysarthria. -Comprehension: Intact Mood/Affect: Appropriate/congruent. Insight/Judgment: Normal. ASSESSMENT/PLAN: Dylan Romero is a 41 y.o. female with a PMH of Dylan Romero is a 41 y.o. female wit h a PMHx of morbid obesity, HTN, diabetes, insomnia, depression, chronic abdominal pain, and recurrent ventral hernias presented to the ED as a transfer from [place] with concern for bowel obstruction and/or incarcerated hernia. # Abdominal pain. Secondary to hernia and constipation. Vitals stable and normal, 0/4 SIRS criteria. Patient is non-toxic, without signs of peritonitis. CT a/p reassuring. Patient not currently passing flatus or having BMs but bowel sounds are normal and she is eating regula rly with only trace nausea, no vomiting, no increased abdominal pain after food. Do suspect mesenteric ischemia. She is losing weight due to supervised weight loss program. - APAP qid scheduled - Continue fentanyl patch at home dosing (rx'd for knee pain) at previous dosing, needs re placement tomorrow - Oxycodone prn for pain - Zofran prn for nausea - Serial examinations - Given constipation started on moderate bowel regimen protocol # DM2. Patient eating a bit less since onset of pain so will reduce insulin regimen given r isks of hypoglycemia - Glargine 40 units qhs - Lispro sliding scale - Metformin 1 g po bid - CBG qid # Chronic hypokalemia. Unclear etiology but may be secondary to loop diuretic. Will continu e home regimen of 60 mEq tid - Recheck BMP this evening # Otitis media. Patient's ears look normal today, will continue doxy regimen she was on at admission - Doxycycline 100 mg po bid x 3 days # Hypoxia. Patient intermittently had 02 sat in high 80s, low 90s when laying down. In ligh t of normal cardiac and pulmonary exam, no sx of hypoxia, extremely large body habitus, this is most likely restrictive lung disease. # Chronic health issues including hypothyroidism, chronic headaches, knee pain, chronic le swelling - Continue home medication regimen # Diet - Diet: consistent carb # Disposition: Admit to observation unit, transfer to internal medicine floor if worsening or not improving in ~40 hours Jaime Yee NP, MPH Emergency Department Cande Hyman MD - 01/01/2017 9:34 AM PDT EGS H&P:/ Date: 01/01/2017 Attending Physician: Fide Hester MD ID: Ms. Dylan Romero is a 41yo morbidly obese female with a PSHx starting with open appendec elizabeth in 2010 and concomitant UHR with PDS. She developed a wound infection requiring I&D x2 and incarcerated ventral hernia for which she was taken to the OR on 11/06/2012 for repair. She underwent a lap pattie in 2013 and another incisional hernia repair in 2014. She has anot her ventral hernia at the same site for which she had seen Dr. Rocha for in clinic in October 2015, who recommended that the patient lose weight before pursuing an elective repair. Procedures: 11/06/2012: Exlap, repair of incarcerated ventral hernia repair 02/07/2014: Lap Pattie with IOC 03/01/2015: Primary Incisional hernia repair and scar revision CHIEF COMPLAINT: Abdominal Pain HPI: Ms. Romero was flown from [place] for abdominal pain in the setting of multiple abdominal surgeries and morbid obesity. She states she was able to eat last night but she vomited what ever she ate up. She reports she has chronic pain from her hernias but the pain she started to have last night was worse than her chronic pain. It was worst in her epigastric area in s ite of previous repair. She last passed gas yesterday. MEDICATIONS: Current Facility-Administered Medications: fentaNYL (SUBLIMAZE) injection 50 mcg, 50 mcg, i ntravenous, PRN, Mark Harper MD HYDROmorphone (DILAUDID) injection 0.5-1 mg, 0.5-1 mg, intravenous, Q20MIN PRN, Mark erazo MD, 1 mg at 01/01/17 1117 Current Outpatient Prescriptions: ALPRAZolam 1 mg oral [...] once daily., Disp : , Rfl: CALCIUM CRB&ZNO-E5-[id number]-GENIS ORAL, Take 2 tablets by mouth two times daily., Disp: , Rfl: dapagliflozin (FARXIGA) 5 mg oral tablet, Take 1 tablet by mouth once daily., Disp: 90 tabl et, Rfl: 3 doxycycline hyclate 100 mg oral tablet, Take [...] mouth four times daily., Disp: , Rfl: HYDROcodone-acetaminophen 10-325 mg oral tablet, Take 1 tablet by mouth every four hours as needed., Disp: , Rfl: 0 insulin NPH 100 unit/mL subcutaneous suspension, Inject 5 Units under the skin (SUBC) two t imes daily., Disp: , Rfl: insulin NPH-insulin regular 70-30 (RELION NOVOLIN 70/30) 100 unit/mL (70-30) subcutaneous s uspension, Inject 100 Units under the skin (SUBC) once daily in the morning., Disp: 30 mL, R fl: 0 magnesium oxide 400 mg oral tablet, Take 400 mg by mouth once daily., Disp: , Rfl: metFORMIN 1,000 mg Oral tablet, Take 1,000 mg by mouth two times daily., Disp: , Rfl: OLANZapine 15 mg oral tablet, Take 30 mg by mouth once daily at bedtime., Disp: , Rfl: phentermine 37.5 mg oral [...] unit/mL (3 mL) subcutaneous insulin pen, Inject 68 Units under the skin (SUBC) once daily at bedtime., Disp: , Rfl: warfarin 10 mg oral tablet, Take 1 tablet by mouth once daily in the evening., Disp: 30 tab let, Rfl: 0 PAST MEDICAL HISTORY: Past Medical History: Diagnosis Date Abdominal pain Abnormal ThinPrep Pap test of vagina Allergic rhinitis Anemia Anxiety Bipolar disorder ([facility]) Chronic wound infection of abdomen from 2010 Cough Depression Diverticulitis of colon Dizziness Glaucoma Heart burn Hemorrhoids Hernia of abdominal wall Incisional hernia, incarcerated 2012 Insomnia Irregular periods Kidney stone Leaking of urine Leg sore Lymphedema Morbid obesity with body mass index of 70 and over in adult ([facility]) Myalgia and myositis Nausea Neck pain Numbness Osteoarthritis of knee Palpitations Pneumonia Shortness of breath Staphylococcal infection Stroke ([facility]) TIA (transient ischemic attack) due to Bromocriptine Tinea corporis UTI (urinary tract infection) Hx of DVT/PE, 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 Andie Brian Incisional hernia repair 03/01/2015 [facility]/ Dr. Cantu. Primary fascial closure and scar excision Lap Pattie 7 years ago SOCIAL HISTORY: Social History Substance Use Topics Smoking status: Former Smoker Smokeless tobacco: Never Used Alcohol use No FAMILY HISTORY: Family History Problem Relation Alcohol/Drug Alcoholism in mother & father Hypertension M&F Asthma Father, brother, daughters Lung Disease Father Obesity M&F&Sister Diabetes Mother Arthritis M&F Heart Attack Father Diabetes Mother Autoimmune Disease Sister lupus ALLERGIES: Allergies Allergen Reactions Amoxicillin Benadrilina [Diphenhydramine Hcl] Hives Parlodel [Bromocriptine] Unknown Blood clots Penicillin Hives ROS: General: No constitutional symptoms of fevers, fatigue, chills, weight loss or sweats. Eyes: No changes in vision. Ears, Nose and Throat: No hearing loss. Respiratory: No shortness of breath, cough, hemoptysis, excessive sputum. Musculoskeletal: No joint pain. Cardiovascular: No chest pain or palpitations Gastrointestinal: +abdominal pain, +nausea, +vomiting, No diarrhea. No BRBPR Genitourinary: No urinary frequency, dysuria, hematuria. Neurologic: No unusual headaches, numbness, or weakness Skin: No changes in skin or suspicious lesions. Psychological: No depression, thoughts of suicide or hallucinations. Heme/Lymphatic: No abnormal bleeding or enlarged lymph nodes. Endrocrine: No heat intolerance, cold intolerance, excessive hunger or excessive thirst. 12 pt review of systems negative except as noted in HPI PHYSICAL EXAM: Wt 174.6 kg (385 lb), BP 144/74, Temperature 36.8 C (98.2 F), SpO2 93%, BMI 72.75 kg/(m ^2). GENERAL: Morbidly obese young female, laying in bed, crying NEURO: A&O x4, CN II-XII in tact, no gross deficits in sensation or motor HEENT: NCAT, MMM, no NGT LUNGS: Normal respiratory effort, breathing unlabored on 2L NC CV: RRR ABDOMEN: Obese, soft, TTP in epigastric area, non-distended. Epigastric hernia is easily re duced. No rebound, guarding or rigidity. Extremities:Warm and well perfused Vascular: 2+ radial and 2+ DP bilaterally Lymph: No axillary, cervical, or inguinal lymphadenopathy LABS: Chemistries No results for input(s): NA, K, CL, BICARB, BUN, CR, CA, MG, PO4, AST, ALT, AP, TBILI, ALB in the last 72 hours. CBC with diff No results for input(s): WBC, HB, HCT, PLT, NEUTROPERC, LYMPHPERC, MONOPERC, BASOPERC, EOSP ERC in the last 72 hours. Invalid input(s): BANDPCT Coag No components found for: INR, PTT, PT CBG's No results for input(s): GLU in the last 72 hours. IMAGING: OSH CT abd/pelvis shows epigastric hernia with transverse colon in the hernia. ASSESSMENT: Dylan Romero is a 41 y.o. female with the following active and past medical problems: m orbid obesity, HTN, diabetes, insomnia, depression, and chronic abdominal pain following sev eral operations for abdominal wall hernias, who presents with abdominal pain from a recurren t, reducible ventral hernia. As the hernia is reducible and she is non-toxic appearing, the re is no emergent need for repair or admission. We explained this at length with her, maryellen genao our reasons that her recurrence risk is almost 100%, she is at risk for complications from anesthesia, wound infections, and other morbidities as a result of her weight. She reports that she is trying to lose weight with our Bariatrics program; med rec reports she is on Phe ntermine and she reports she weighs 300 lb from 500 lb before (She is currently 174 kg from the [address] Rocha in the clinic). We congratulated her on the progress she has made and that this is encouraging for future bariatric surgery. We think it is appropriate to observe her, give her a diet, and pursue other conservative measures to help with pain co ntrol from her hernia. PLAN: -- Admit to ED Observation -- Provide with Abdominal Binder x2; patient can try binder for comfort -- OK for a diet -- Pain medications per ED -- If tolerating a diet and pain is controlled, ok to send home. The above findings and plan were discussed with Dr. Gaviria, who agrees, and will disc uss with Dr. Moore. Mary Ball MD General Surgery PGY1 [id number] Patient with ongoing pain. Still nontoxic appearing. Continue conservative management. Admi t EGS for obs. I saw and evaluated the patient. I agree with the findings and the plan of care as dequan han in the resident s note. Cande Moore MD [facility] EMERGENCY DEPARTMENT [address] [place] [address] documented in this en counter ED Notes Luz Maria Strickland RN - 01/02/2017 11:29 AM PDTRN Discharge Note: Condition at time of discharge: Patient A&O x4, vital signs stable, appears in no acute di stress and pain reported as tolerable. Patient transferred to [facility]. Discharge instructions: Patient provided discharge instructions. Understanding of instruct ions is evidenced by review of follow-up plan, voiced understanding of plan of care and ques tions asked and answered. Written discharge instructions provided and reviewed. Destination: Patient discharged to home via medical transportation with self. Education provided to the patient/family: all discharge instructions, all prescription medi cations, post discharge follow up appointments. Luz Maria Nieto RN - 01/02/2017 11:25 AM PDTMedical transport here to [facility] patient. Luz Maria Nieto RN - 01/02/2017 9:30 AM PDTMe dical transport called and set up for patient, 7 pm. Felix Meehan FNP - 01/02/2017 9:18 AM PDT ED OBSERVATION UNIT DISCHARGE SUMMARY Date of Admission: 01/01/2017 Date of Discharge: 01/02/2017 Primary Care Provider: Radha Goodrich DO ED Obs Provider: HILDA Bonner Chief Complaint: Referral (Incarcerated hernia) Final Diagnoses: K43.9 Ventral hernia without obstruction or gangrene E11.9, Z79.4 Type 2 diabetes mellitus without complication, with long-term current use of insulin (HCC) E66.01 Morbid obesity, unspecified obesity type Brief HPI: Dylan Romero is a 41 y.o. female with a PMH s/f DM2, chronic abdominal pain, BMI 70, numerous hernia repairs, cholecystectomy, depression and bipolar disorder, who pres ented to the ED for evaluation of acute on chronic abdominal pain. ED Acute Course: ED Triage Vitals BP Temp Pulse Pulse - Plethysmograph Resp SpO2 01/01/17 0845 01/01/17 0847 01/01/17 1557 01/01/17 0845 01/01/17 1557 01/01/17 0845 144/74 36.8 C 93 113 pulses/min 16 93 % "Upon presentation to the ED, Dylan's vital signs were initially notable for BP 144/7, puls e 113 with otherwise normal vital signs. Physical exam significant for morbidly obese uncomf ortable non-toxic female, tachycardic, with low midline hernia soft but tender without any p erioneal signs." "Labs notable for hematuria (she is on her menses), mild hypercapnia of 67 and acidosis at 7.3, CBC without anemia or leukocytosis. She was evaluated by general surgery who stated andriy t since hernia is reducible, pt non-toxic, risk of recurrence near 100%, risk of surgical re pair outweighs benefit." Observation Unit Course: Once stable, the patient was transferred to the Emergency Department Observation Unit with a diagnosis of abdominal for continuation of care including pain control. While in ED Obs, she was hemodynamically stable. Patient evaluated by EGS who reduced the hernia successful and taught patient appropriate technique. Patient is working with [facility] surgery to prepare of gastric intervention. General surgery states hernia repair should wait until have bariatric surgery as weight loss will help with a successful hernia repair. Consults: EGS Pertinent Exam Findings at Discharge: General appearance: Adult Morbidly Obese female resting in bed appearing well nourished in NAD. HEENT: Normocephalic, atraumatic. Sclera anicteric, without injection. Mucous membranes m oist. Neck supple. CV: RRR, without m/r/g. Resp: No respiratory distress. Breath sounds equal bilaterally without w/r/r GI: Abdomen soft, with tenderness caused around hernia sight, patient hernia soft no signif icant protrude at this time. Extrem: Warm and well perfused, no deformities. Peripheral Vascular: No dependent edema. 2+ Posterior Tibial pulses bilaterally. Neuro: A&O x 3, CN II-XII intact grossly. Psych: Appropriate affect and insight. Skin: Appropriate color, warm, dry. 1. Abdominal Pain - APAP qid scheduled x 3 days - Continue fentanyl patch at home dosing - Oxycodone 5 mg q3h as needed for pain - Zofran 4 mg q12h prn for nausea -Senna and Colace -Reduce hernia as needed Disposition: Home Discharge Condition: Stable Medications: Discharge Medication List as of 01/02/2017 11:09 AM START taking these medications Details oxyCODONE (immediate release) 5 mg oral tablet Take 1 tablet by mouth every three hours as needed (Pain). Indications: Pain, Disp-21 tablet, R-0Schedule IIPrint Prescription Instructions: 1. Activity: Ad jelena 2. Diet: Heart health 3. Return to ED if symptoms worsen Follow-up: 1. PCP in 1 week BP 133/83 | Pulse 84 | Temp 36.4 C | RR 18 | Wt 174.6 kg (385 lb) | SpO2 96% | BMI 72.75 kg/(m^2) HILDA Bonner Emergency Department HILDA Bonner Results for orders placed or performed during the hospital encounter of 01/01/17 COMPLETE METABOLIC SET (NA,K,CL,CO2,BUN,CREAT,GLUC,CA,AST,ALT,BILI TOTAL,ALK PHOS,ALB,PROT TOTAL) Result Value Ref Range GLUCOSE, PLASMA (LAB) 115 (H) 60 - 99 mg/dL BUN, PLASMA (LAB) 12 6 - 20 mg/dL CREATININE PLASMA (LAB) 0.91 0.60 - 1.10 mg/dL EGFR - SOMALI >60 >60 mL/min EGFR NON -SOMALI >60 >60 mL/min SODIUM, PLASMA (LAB) 145 136 - 145 mmol/L POTASSIUM, PLASMA (LAB) 3.8 3.4 - 5.0 mmol/L CHLORIDE, PLASMA (LAB) 110 (H) 97 - 108 mmol/L TOTAL CO2, PLASMA (LAB) 26 21 - 32 mmol/L CALCIUM, PLASMA (LAB) 8.5 (L) 8.6 - 10.2 mg/dL CALCIUM(ALB CORRECTED) 9.4 8.6 - 10.2 mg/dL BILIRUBIN TOTAL 0.3 0.3 - 1.2 mg/dL TOTAL PROTEIN, PLASMA (LAB) 7.0 6.4 - 8.2 g/dL ALBUMIN, PLASMA (LAB) 2.9 (L) 3.5 - 4.7 g/dL ALK PHOS 114 (H) 42 - 98 U/L AST(SGOT) 18 <=41 U/L ALT (SGPT) 29 <=60 U/L ANION GAP 9 mmol/L ANION GAP(ALB CORRECTED) 11 4 - 11 mmol/L POTASSIUM CMNT No Hemo BILI T CMNT No Hemo AST CMNT No Hemo COAGULOPATHY PANEL (INR,APTT,FIBRINOGEN) Result Value Ref Range INR 1.10 0.90 - 1.20 INR APTT 28.6 26.0 - 36.0 seconds FIBRINOGEN LEVEL 552 (H) 200 - 450 mg/dL ABO & RH TYPE Result Value Ref Range ABO Group A Rh Type Positive ANTIBODY SCREEN Result Value Ref Range Antibody Screen Negative URINE SCREEN FOR CULTURE Result Value Ref Range CULT, URINE SCREEN Positive (A) Negative URINE, MICROSCOPIC EXAM Result Value Ref Range RED CELLS >1000 (H) 0 - 3 /hpf WHITE CELLS 0 0 - 5 /hpf BACTERIA None None /hpf YEAST (LAB) None None /hpf SQUAMOUS EPITHELIAL Few (A) None /hpf MUCOUS None None /hpf TRICHOMONAS None None /hpf NON-SQUAMOUS EPITH None None /hpf HYALINE CASTS 0 0 - 2 /lpf GRANULAR CASTS 0 0 - 2 /lpf CELLULAR CASTS 0 <=0 /lpf TRIPLE P04 CRYSTALS None None /hpf CALCIUM OXALATE KATHE None None /hpf URIC ACID CRYSTALS None None /hpf AMORPHOUS CRYSTALS None None /hpf BASIC METABOLIC SET (NA, K, CL, TCO2, BUN, CR, GLU, CA) Result Value Ref Range GLUCOSE, PLASMA (LAB) 126 (H) 60 - 99 mg/dL BUN, PLASMA (LAB) 11 6 - 20 mg/dL CREATININE PLASMA (LAB) 0.81 0.60 - 1.10 mg/dL EGFR - SOMALI >60 >60 mL/min EGFR NON -SOMALI >60 >60 mL/min SODIUM, PLASMA (LAB) 142 136 - 145 mmol/L POTASSIUM, PLASMA (LAB) 3.8 3.4 - 5.0 mmol/L CHLORIDE, PLASMA (LAB) 108 97 - 108 mmol/L TOTAL CO2, PLASMA (LAB) 25 21 - 32 mmol/L CALCIUM, PLASMA (LAB) 8.3 (L) 8.6 - 10.2 mg/dL ANION GAP 9 mmol/L POTASSIUM CMNT No Hemo CAPILLARY BLOOD GLUCOSE (NO CHG), POC Result Value Ref Range BLOOD GLUCOSE, POC 147 (H) 60 - 99 mg/dL CAPILLARY BLOOD GLUCOSE (NO CHG), POC Result Value Ref Range BLOOD GLUCOSE, POC 131 (H) 60 - 99 mg/dL ED BG-LAC,POC Result Value Ref Range ED BG POC TC02 26 23 - 29 mmol/L ED BG POC PH 7.30 (L) 7.35 - 7.45 ED BG POC PCO2 50 (H) 35 - 50 mmHg ED BG POC HCO3 25 22 - 28 mmol/L ED BG POC BE -1.0 mmol/L ED BG POC PO2 67 (H) 30 - 55 mmHg ED BG POC SO2 91 % ED LACTATE POC 0.9 0.5 - 2.2 mmol/L ED BG POC TEMP 98.2 F ISTAT SAMPLE TYPE VENOUS CBC AND AUTO DIFF Result Value Ref Range WHITE CELL COUNT 8.97 3.50 - 10.80 K/cu mm RED CELL COUNT 4.13 4.00 - 5.20 M/cu mm HEMOGLOBIN 11.1 (L) 12.0 - 16.0 g/dL HEMATOCRIT 36.1 36.0 - 46.0 % MCV 87.4 80.0 - 96.0 fL MCHC 30.7 33.0 - 35.5 g/dL RDW SD 50.9 (H) 35.1 - 46.3 fL PLATELET COUNT 258 150 - 400 K/cu mm MPV 9.6 (L) 9.7 - 12.3 fL NRBC% 0.0 0.0 - 0.3 % NRBC# 0.00 0.00 - 0.02 K/cu mm NEUTROPHIL % 58.4 50.0 - 70.0 % LYMPHOCYTE % 28.3 18.0 - 42.0 % MONOCYTE % 8.1 3.5 - 9.0 % EOS % 4.5 (H) 1.0 - 3.0 % BASO % 0.4 0.0 - 2.0 % IMMATURE GRANULOCYTE% 0.3 0.0 - 0.6 % NEUTROPHIL # 5.23 1.80 - 7.70 K/cu mm LYMPHOCYTE # 2.54 1.00 - 4.80 K/cu mm MONOCYTE # 0.73 0.10 - 0.90 K/cu mm EOS # 0.40 0.00 - 0.50 K/cu mm BASO # 0.04 0.00 - 0.10 K/cu mm IMMATURE GRANULOCYTE# 0.03 0.00 - 0.03 K/cu mm CULTURE, URINE [facility] Result Value Ref Range URINE CULTURE [facility] See Cx Results (A) ED INFORMATION EXCHANGE Result Value Ref Range DELTA PID [id number] Luz Maria Nieto R N - 01/02/2017 7:33 AM PDTI have assumed care of this patient. Pt checked on, currently anna ke, AOx4, EGS at bedside, aware of plan of care. VSS. Bed in low, locked position, call ligh t within reach. Will continue to monitor. Electronically signed by Luz Maria Strickland RN at 03/2017 7:46 AM Lupis Borden RN - 01/02/2017 7:32 AM PDTI have relinquished care of t his patient. SBAR given to KELSIE Loera.Electronically signed by Lupis Echevarria, KELSIE at 7 7:32 AM Lupis Borden RN - 01/02/2017 6:11 AM PDTED Nursing Handoff Report Primary focus of stay: Incarcerated hernia, referral from [facility] in [place]. Pertinent physical findings (Focused assessment, Pain/discomfort, Neuro, Cards/tele and Res p assessment):PMH s/f DM2, chronic abdominal pain, BMI 70, numerous hernia repairs, cholecys tectomy, depression and bipolar disorder. Patient concern (Primary reason for coming to the ED): Pain from hernia Psych/social assessment & interventions: No pertinent issues noted. No interventions needed . Safety risks: fall risk Isolation status Contact Legal status: Voluntary Medical/psychosocial stability: Moderately Stable Transition concerns as related to stability: none Alarm parameter changes: none Care R/T comfort, hygiene, education (i.e., activity, environment, toileting, skin, ADLs, e tc.): Pt able to ambulate to bathroom by herself, but needs assistance wiping. Pt on menses. Orders to follow up on: none Anticipated/pending procedures or disposition: Pt needs abdominal binder, but the two toget her are to big. Education provided to the patient/family: Pt educated on medications, procedures and call l ight. Scott Ruth RN - 01/01/2017 7:54 PM PDTI have relinquished care of this patient. SBAR denisha Baugh RN. Electron ically signed by Scott Grace RN at 01/01/2017 7:54 PM PDTLashae Walter - 01/01/2017 7:23 PM PDTDinner ordered for patient. Scott Ruth RN - 01/01/2017 7:20 PM PDTI have assumed care of this patient. SBAR analia Moulton RN. Pt resting in bed, states abd pain but received 5mg oxycodone just before sh ift change. Sats at 94% RA, pt denies any SOB at this time. Dinner menu given. Electronicall y signed by Scott Grace RN at 01/01/2017 7:33 PM PDTKiAshley small RN - 01/01/2017 1:46 PM PDTED Nursing Admit Report Primary focus of stay: incarcerated hernia, referral from [facility] in [place] Pertinent physical findings (Focused assessment, Pain/discomfort, Neuro, Cards/tele and Res p assessment): Pain has been around 710. Pt has received 3.5 mg of dilaudid total with last dose of 1mg at 1445. Pt has 25mg fentanyl patch on left arm has been in place for 2 days, d ue to be changed 01/02 Resp: Pt is on 2L via nasa cannula, currently SPO2 96. Pt denies O2 use at home. Lung sound s clear Skin: Pt has excoriation under panus which she treats with goldbond medicated powder at [facility]. Open sore noted under right side. Pt has been diagnosed with MRSA Patient concern (Primary reason for coming to the ED): Pain from hernia Psych/social assessment & interventions: No pertinent issues noted. No interventions needed . Safety risks: no safety risks noted Isolation status Contact Legal status: Voluntary Medical/psychosocial stability: Moderately Stable Transition concerns as related to stability: none Alarm parameter changes: none Care R/T comfort, hygiene, education (i.e., activity, environment, toileting, skin, ADLs, e tc.): Pt is able to ambulate to the bathroom without assistance, pt is able to perform self care and reposition herself in bed Orders to follow up on: None at this time, pt has PRN 0.5-1 mg dilaudid available [id number], has been requiring 1 mg dose at a time. Report Given: Saige Viera ED Obs Anticipated/pending procedures or disposition: Abdominal binder X2 Education provided to the patient/family: Pt made aware of need to stay over nite in observ ation unit. Denies further questions at this time Belongings completed by RILEY, unsecured Leslie Freitas PA-C - 01/01/2017 1:38 PM PDTIPAS(S) Handoff Note I received sign-out and accepted care of this patient from the departing resident and atten ding at 1:38 PM. Please see the primary providers note for complete elements of the histo ry, physical exam, and ED course. Illness Severity: Stable Patient Summary: Most recent vital signs: BP 117/63 | Temp 36.8 C | Wt 174.6 kg (385 lb) | SpO2 96% | BMI 72.75 kg/(m^2) Dylan Romero is a 41 y.o. female with a PMHx of morbid obesity, HTN, diabetes, insomnia , depression, chronic abdominal pain, and recurrent ventral hernias presented to the ED as a transfer from [place] with concern for bowel obstruction and/or incarcerated hernia. Recu rrent hernia being followed by Dr Rocha in clinic. Presented to OSH with 2 days of abdominal pain, nausea and vomiting. Last episode of vomit ing yesterday evening. No BM, + flatus. Seen by EGS, hernia is reducible. Pt is non-toxic appearing. Lab and imaging results: Unremarkable labs CT from OSH - report per EGS shows ventral hernia without signs of incarceration Action plan (To Do): Per EGS: -- Admit to ED Observation -- Provide with Abdominal Binder x2; patient can try binder + tennis ball at home to keep h ernia reduced -- OK for a diet -- Pain medications per ED -- If tolerating a diet and pain is controlled, ok to send home. ED Course Following Sign Out: No acute events Care signed out to the oncoming TITLE I TEACHER (Luc/Joselito) Leslie Deleon PA-C eny Diamond RN - 01/01/2017 10:20 AM PDTEGS at bedside Ashley Fairchild RN - 01/01/2017 9:53 AM PDTPt put on 2 L O2 via nasal cannula due to 92% SPO2 and 0.5mg dilaudid given Mark Mattson MD - 01/01/2017 8:58 AM PDT ED Shared Provider Note, co-authored by Fide Hester M.D. and Mark Harper MD: KEI Romero is a 41 y.o. woman with PMH notable for DVT and PE, diabetes, recurrent ve ntral hernias who presents with worsening abdominal pain for the past 2 days. She describes severe, sharp, constant periumbilical pain at the site of her prior ventral hernia. She vomi emely 4 times yesterday, last 14 hours ago. She has been unable to tolerate anything by mouth today. Last BM 2 days ago, normal. Doesn't think she's passed gas in the past 2 days. No fever, chest pain, shortness of breath, dysuria/hematuria. Currently menstruating. Seen in emergency department in [place], where CT scan of her abdomen was concerning for incarcerated ventral hernia, so transferred here for further management and surgical evaluat ion. Reports prior cholecystectomy, complicated by ventral hernia, which was repaired one year a go. 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 Candidal intertrigo 11/09/2015 Right heart [...] (polycystic ovarian syndrome) 06/16/2013 Ventral hernia 06/16/2013 GERD (gastroesophageal reflux disease) 04/14/2013 Hernia 11/05/2012 Past Medical History: Diagnosis Date Abdominal pain [...] of 70 and over in adult ([facility]LY [facility]) Myalgia and myositis Nausea Neck pain Numbness Osteoarthritis of knee Palpitations Pneumonia Shortness of breath Staphylococcal infection Stroke ([facility]) TIA (transient ischemic attack) due to Bromocriptine Tinea corporis UTI (urinary tract infection) Past Surgical History Procedure Laterality Date Tonsillectomy and adenoidectomy Appendectomy, open 2010 Umbilical hernia repair 2010 Treatment of ankle fracture with screws remaining Incision and drainage of wound abscess x2 midline transverse wound s/p open appendectomy 2010 Ventral hernia repair 10/2012 Dr. Andie Brian Incisional hernia repair 03/01/2015 [facility]/ Dr. Cantu. Primary fascial closure and scar excision Medications Prior to Admission Medications Prescriptions Last Dose Informant Patient Reported? Taking? ALPRAZolam 1 mg oral tablet Yes No Sig: Take 1 mg by mouth three times daily as needed for anxiety. CALCIUM [id number] ORAL Yes No Sig: Take 2 tablets by mouth two times daily. FLUoxetine 20 mg oral tablet Yes No Sig: Take 60 mg by mouth once daily at bedtime. HYDROcodone-acetaminophen 10-325 mg oral tablet Yes No Sig: Take 1 tablet by mouth every four hours as needed. OLANZapine 15 mg oral tablet Yes No Sig: Take 30 mg by mouth once daily at bedtime. TRESIBA FLEXTOUCH U-100 100 unit/mL (3 mL) subcutaneous insulin pen Yes No Sig: Inject 68 Units under the skin (SUBC) once daily at bedtime. ascorbic acid (VITAMIN C) 500 mg Oral tablet Yes No Sig: Take 500 mg by mouth once daily. aspirin EC 81 mg oral tablet,delayed release (DR/EC) Yes No Sig: Take 81 mg by mouth once daily. dapagliflozin (FARXIGA) 5 mg oral tablet No No Sig: Take 1 tablet by mouth once daily. doxycycline hyclate 100 mg oral tablet 12/31/2016 at Unknown time Yes Yes Sig: Take 100 mg by mouth every twelve hours. (Pharmacist to substitute salt form as needed ) ergocalciferol (VITAMIN D2) 50,000 unit oral capsule Yes No Sig: Take 50,000 Units by mouth twice weekly (on Thursday and ). fentaNYL 25 mcg/hr transdermal patch 72 hour Yes No Si patch every seventy-two hours. gabapentin 300 mg oral capsule Patient Yes No Sig: Take 300 mg by mouth four times daily. insulin NPH 100 unit/mL subcutaneous suspension Yes No Sig: Inject 5 Units under the skin (SUBC) two times daily. insulin NPH-insulin regular 70-30 (RELION NOVOLIN 70/30) 100 unit/mL (70-30) subcutaneous s uspension No No Sig: Inject 100 Units under the skin (SUBC) once daily in the morning. magnesium oxide 400 mg oral tablet Yes No Sig: Take 400 mg by mouth once daily. metFORMIN 1,000 mg Oral tablet Yes No Sig: Take 1,000 mg by mouth two times daily. phentermine 37.5 mg oral tablet No No Sig: Take 1 tablet by mouth once daily in the morning. Administer before breakfast. potassium chloride SR 20 mEq oral tablet,ER particles/crystals No No Sig: Take 2 tablets by mouth two times daily. ranitidine 150 mg oral tablet Yes No Sig: Take 150 mg by mouth once daily as needed. Indications: HEARTBURN sodium fluoride 1.1 % dental cream Yes No Sig: Place onto the teeth. Use to brush teeth 2 to 3 times daily as directed. Do not eat d rink or rinse mouth immediately following use. Do not swallow thyroid (ARMOUR THYROID) 30 mg oral tablet tab Yes No Sig: Take 30 mg by mouth once daily. topiramate 200 mg oral tablet Yes No Sig: Take 50 mg by mouth two times daily. Indications: Migraine Prevention torsemide 100 mg oral tablet Yes No Sig: Take 100 mg by mouth two times daily. traZODone 150 mg Oral tablet Yes No Sig: Take 150 mg by mouth once daily at bedtime. warfarin 10 mg oral tablet No No Sig: Take 1 tablet by mouth once daily in the evening. Facility-Administered Medications: None Allergies Allergen Reactions Amoxicillin Benadrilina [Diphenhydramine Hcl] Hives Parlodel [Bromocriptine] Unknown Blood clots Penicillin Hives Social History reports that she has quit using tobacco. She reports that she does not currently drink al cohol or use drugs. Family History Problem Relation Heart Attack Father Diabetes Mother Alcohol/Drug Other Alcoholism in mother & father Hypertension Other M&F Asthma Other Father, brother, daughters Lung Disease Other Father Obesity Other M&F&Sister Diabetes Other Mother Arthritis Other M&F Autoimmune Disease Sister lupus Review of Systems A thorough, 10-system review of systems was negative except as noted in the HPI. ED Triage Vitals BP Temp Pulse Pulse - Plethysmograph Resp SpO2 01/01/17 0845 01/01/17 0847 01/01/17 1557 01/01/17 0845 01/01/17 1557 01/01/17 0845 144/74 36.8 C 93 113 pulses/min 16 93 % Physical Exam Nursing note and vitals reviewed. General: Morbidly obese, uncomfortable, nontoxic HEENT: Normocephalic, atraumatic Eyes: Conjunctiva normal, anicteric Neck: Supple CV: Regular tachycardia; no murmur Chest: Nonlabored; clear to auscultation bilaterally; no wheezes, crackles or rhonchi Abdomen: Soft, protuberant; periumbilical hernia soft but tender; low midline hernia soft b ut tender; no overlying erythema; no peritoneal signs Extremities: Warm and well perfused Neuro: Awake and alert; moving all extremities; strength and sensation grossly intact Psych: Calm and cooperative with exam; normal affect ED COURSE AND MEDICAL DECISION MAKING: Assessment: Dylan Romero is a 41 y.o. woman who presents with abdominal pain. Here pt is afebrile, normotensive and mildly tachycardic with exam notable for tenderness at her ventral hernias. Her recent vomiting and decreased stool output risk concern for partial obstruction, althou gh she does not appear completely obstructed on her CT scan. Initial treatments: Normal saline, Dilaudid Labs: -VBG with pH 7.30, PCO2 50, lactate 0.9 -Electrolytes and LFTs unremarkable -WBC 9, hematocrit 36 -INR 1.1 -UA with large blood, no evidence of infection MDM (continued): Patient was evaluated by the emergency general surgery service, who does not believe that s he is acutely strangulated or incarcerated, and do not think that there is indication for ur gent surgery at this point. They recommended admission to the observation unit for pain cont rol and close monitoring. As she is not vomiting and does not appear obstructed on her CT sc an, we will hold off on nasogastric tube and plan for diet as tolerated. I gave sign out to the admitting observation provider, the patient was transitioned to the observation unit without further incident in the emergency department. She understands and a grees with the plan for admission for symptom control and monitoring for pelvic consultation s of her ventral hernias. ED Medication Administration from 01/01/2017 0822 to 01/01/2017 1608 Date/Time Order Dose Route Action 01/01/2017 0949 HYDROmorphone (DILAUDID) injection 0.5-1 mg 0.5 mg intravenous Given 01/01/2017 1117 HYDROmorphone (DILAUDID) injection 0.5-1 mg 1 mg intravenous Given 01/01/2017 1307 HYDROmorphone (DILAUDID) injection 0.5-1 mg 1 mg intravenous Given 01/01/2017 1442 HYDROmorphone (DILAUDID) injection 0.5-1 mg 1 mg intravenous Given 01/01/2017 0947 sodium chloride 0.9% IV infusion 1,000 mL intravenous New Bag Admit Requested: Jan 01, 2017 1:32 PM Dylan Romero requires hospitalization beyond acute emergency department care. Factors favoring observation status include: need for symptom control and needs monitoring for pote ntial deterioration in condition IMPRESSION: K43.9 Ventral hernia without obstruction or gangrene E11.9, Z79.4 Type 2 diabetes mellitus without complication, with long-term current use of insulin ([facility]) E66.01 Morbid obesity, unspecified obesity type PLAN, DISPOSITION AND FOLLOW-UP: Admitted to ED observation unit with EGS consult Associated attestation - Fide Hester MD - 01/02/2017 10:55 AM Jodie Tompkins, Faculty Note: I saw and evaluated the patient and discussed the diagnosis and management with the residen t. I performed and confirmed the de la cruz portions of the service. I have reviewed and agree with the documentation in this shared provider note. MD Katrina Gilliam Alyssa, RN - 01/01/2017 8:51 AM PDTPt reports to ED on referral from [facility] for an incarcerated hernia. Pt reports pain began suddenly 12/30/2016 in her mid low abdomen. Pt has hx of incarcerated hernia repair last year and reports pain in this site as well as a new site lower in her abdomen. Pt is tender of palpation in lower mid abdomen, two firm segments noted on palpation. Pt reports nausea for 2 days and vomited X 4 12/31/2016 par tially digested food. Pt has not been able to hold food down food or water since 12/31. P t reports dizziness which she states is normal for her due to allergies. Pt denies any numbn ess or tingling in extremities, radial pulses 2+ bilaterally and pedal pulses 1+ bilaterally , cap refill < 3 seconds in upper and lower extremities bilaterally. Pt AAOX4. Sophie Murcia RN - 01/01/2017 5:24 AM KELSIE Mcgrath [place] [facility] Abdominal pain Hernia surgery last year which came back very soon after Presented today with abdominal pain, Nausea and vomiting. CT scan: 2 hernias shown 5ft 2 in 385lbs 4mg Morphine IV x 3 22G IV Left Hand Charley CARVAJAL, Juventino - Amanda 01/01/2017 4:19 AM PDTEmergency Medicine Transfer Note 41 year old female presenting to [place] [facility] department with Abd pain and vomiting Relevant Past Medical History Hernia Bariatric Relevant Results CT scan concerning for incarcerated hernia and possible early obstruction Treatment at Outside Facility pain medication consulted Dr. Rocha Plan Evaluation by EGS Please call EGS when patient arrives Mode of Transportation Ground Juventino Priest MD documented in this enco unter Miscellaneous Notes ED Teaching Notes - Fide Hester MD - 01/01/2017 8:30 AM PDTTeaching note not neede d. [facility] Sharon diazTerri - 01/01/2017 8:05 AM PDTLF GR: no changes, bp 101/55, hr 100, SAT 94% ra. [facility] Eileen veritoTerri horton - 01/01/2017 7:12 AM PDTPer Monica at dispatch FW has landed in [place]. ETA to [facility] by [facility] Alexia Grissom - 01/01/2017 4:35 AM PDTReferring advised -FW should be at [facility] in about 30 mins to pickling grader the pt. 17 4:35 AM PDTMclaren [facility] Alexia Neal - 01/01/2017 4:23 AM PDTED charge notified an d [facility] - 01/01/2017 4:13 [address] PDTDr. Rocha connected with Dr. Plunkett, P t wgt [id number], came to referring c/o severe abd pain x 1 day, vomited about 4 times, pt describ ed pain as hernia pain, had been dx'd with hernia in 2015 and had one corrected at [facility], pt is scheduled to see bariatric surgery in January this year for bariatric surgery and to correct the hernias, referring got CT of abd, shows 2 hernias, concern for incarcerated hernia, wit hout complete obstruction, 's discuss. Dr. Rocha would like pt to come through the ED, connected Dr. Plunkett with ED Dr. Priest. Dr. Priest accepts to ED, pt to come by GR. Electronically signed by Alexia Neal at 02/2017 4:23 AM [facility] Mckeon - 01/01/2017 4:11 [address] PDTDr. Plunkett calls to speak with bariatric surgery, Dr. Christian Cheng. documented in this encounter Plan of Treatment +--------+ + + + + | Date | Type | Specialty | Care Team | Description | +--------+ + + + + | 04/04/ | Telephone-S | Surgery | Orquidea Cristobal, | | | 2020 | chesteve | | MATERIAL FLOW ENGINEER [address] | | | | | | [place], [place] | | | | | | [address] | | | | | | [phone] | | | | | | | | +--------+ + + + + documented as of this encounter Procedures + +--------+ + + + | Procedure Name | Priori | Date/Time | Associated Diagnosis | Comments | | | ty | | | | + +--------+ + + + | CAPILLARY BLOOD | Routin | 01/02/2017 | Ventral hernia | Results for this | | GLUCOSE (NO CHG), | e | 8:49 AM | without obstruction | procedure are in the | | POC | | PDT | or gangrene | results section. | + +--------+ + + + | BASIC METABOLIC SET | Urgent | 01/01/2017 | | Results for this | | (NA, K, CL, TCO2, | | 10:43 PM | | procedure are in the | | BUN, CR, GLU, CA) | | PDT | | results section. | + +--------+ + + + | CAPILLARY BLOOD | Routin | 01/01/2017 | Ventral hernia | Results for this | | GLUCOSE (NO CHG), | e | 10:21 PM | without obstruction | procedure are in the | | POC | | PDT | or gangrene | results section. | + +--------+ + + + | URINE, MICROSCOPIC | Urgent | 01/01/2017 | | Results for this | | EXAM | | 10:54 AM | | procedure are in the | | | | PDT | | results section. | + +--------+ + + + | URINE SCREEN FOR | Urgent | 01/01/2017 | | Results for this | | CULTURE | | 10:54 AM | | procedure are in the | | | | PDT | | results section. | + +--------+ + + + | URINE CULTURE WORKUP | Routin | 01/01/2017 | | Results for this | | | e | 10:54 AM | | procedure are in the | | | | PDT | | results section. | + +--------+ + + + | CULTURE, URINE [facility] | Routin | 01/01/2017 | | Results for this | | | e | 10:54 AM | | procedure are in the | | | | PDT | | results section. | + +--------+ + + + | BG-DEMARPOC ISTAT | Urgent | 01/01/2017 | | Results for this | | | | 10:00 AM | | procedure are in the | | | | PDT | | results section. | + +--------+ + + + | CBC AND AUTO DIFF | Urgent | 01/01/2017 | | Results for this | | | | 9:06 AM | | procedure are in the | | | | PDT | | results section. | + +--------+ + + + | CBC, WITH | Urgent | 01/01/2017 | | Results for this | | DIFFERENTIAL | | 9:06 AM | | procedure are in the | | | | PDT | | results section. | + +--------+ + + + | COMPLETE METABOLIC | Urgent | 01/01/2017 | | Results for this | | SET | | 9:06 AM | | procedure are in the | | (NA,K,CL,CO2,BUN,CRE | | PDT | | results section. | | AT,GLUC,CA,AST,ALT,B | | | | | | MARGIE TOTAL,ALK | | | | | | PHOS,ALB,PROT TOTAL) | | | | | + +--------+ + + + | COAGULOPATHY PANEL | Urgent | 01/01/2017 | | Results for this | | (INR,APTT,FIBRINOGEN | | 9:06 AM | | procedure are in the | | ) | | PDT | | results section. | + +--------+ + + + | ANTIBODY SCREEN | Urgent | 01/01/2017 | | Results for this | | | | 9:06 AM | | procedure are in the | | | | PDT | | results section. | + +--------+ + + + | TYPE AND SCREEN | Urgent | 01/01/2017 | | Results for this | | | | 9:06 AM | | procedure are in the | | | | PDT | | results section. | + +--------+ + + + | ABO & RH TYPE | Urgent | 01/01/2017 | | Results for this | | | | 9:06 AM | | procedure are in the | | | | PDT | | results section. | + +--------+ + + + | ED INFORMATION | Routin | 01/01/2017 | | Results for this | | EXCHANGE | e | 8:22 AM | | procedure are in the | | | | PDT | | results section. | + +--------+ + + + documented in this encounter Results CAPILLARY BLOOD GLUCOSE (NO CHG), POC (01/02/2017 8:49 AM PDT) + +---------+ + + + | Component | Value | Ref Range | Performed | Pathologist | | | | | At | Signature | + +---------+ + + + | BLOOD | 131 (H) | 60 - 99 [...] [facility] | [address] | [place], [place] | | | [facility] | [address] | [address] | | | TESTS | | | | + + + + + BASIC METABOLIC SET (NA, K, CL, TCO2, BUN, CR, GLU, CA) (01/01/2017 10:43 PM PDT) + +---------+ + + [...] +---------+ + + + | CREATININE | 0.81 | 0.60 - 1.10 | [facility] | | | PLASMA | | mg/dL | LABORATORY | | | (LAB) | | | SERVICES, | | | | | | CORE | | + +---------+ + + + | EGFR | >60 | >60 mL/min | [facility] | | | - | | | LABORATORY | | | SOMALI | | | SERVICES, | | | [...] +---------+ + + + | CALCIUM, | 8.3 (L) | 8.6 - 10.2 | [facility] [...] | + + + + + | [facility] [employer] | [address] | [place] [address] | | | SERVICES, [place] | [address] | | | + + + + + CAPILLARY BLOOD GLUCOSE (NO CHG), POC (01/01/2017 10:21 PM PDT) + +---------+ + + + [...] [facility] | [address] | [place], [place] | | | [facility] | [address] | [address] | | | TESTS | | | | + + + + + URINE, MICROSCOPIC EXAM (01/01/2017 10:54 AM PDT) + + + + + + | Component | Value | Ref Range | Performed | Pathologist | | | | | At | Signature | + + + + + + | RED CELLS | >1000 (H) | 0 - 3 /hpf | [facility] | | | | | | LABORATORY | | | | | | SERVICES, | | | | | | CORE | | + + + + + + | WHITE CELLS | 0 | 0 - 5 /hpf | [facility] | | | | | | LABORATORY | | | | | | SERVICES, | | | | | | CORE | | + + + + + + | BACTERIA | None | None /hpf | [facility] | | | | | | LABORATORY | | | | | | SERVICES, | | | | | | CORE | | + + + + + + | YEAST (LAB) | None | None /hpf | [facility] | | | | | | LABORATORY | | | | | | SERVICES, | | | | | | CORE | | + + + + + + | SQUAMOUS | Few (A) | None /hpf | [facility] | | | EPITHELIAL | | | LABORATORY | | | | | | SERVICES, | | | | | | CORE | | + + + + + + | MUCOUS | None | None /hpf | [facility] | | | | | | LABORATORY | | | | | | SERVICES, | | | | | | CORE | | + + + + + + | TRICHOMONAS | None | None /hpf | [facility] | | | | | | LABORATORY | | | | | | SERVICES, | | | | | | CORE | | + + + + + + | NON-SQUAMOU | None | None /hpf | [facility] | | | S EPITH | | | LABORATORY | | | | | | SERVICES, | | | | | | CORE | | + + + + + + | HYALINE | 0 | 0 - 2 /lpf | [facility] | | | CASTS | | | LABORATORY | | | | | | SERVICES, | | | | | | CORE | | + + + + + + | GRANULAR | 0 | 0 - 2 /lpf | [facility] | | | CASTS | | | LABORATORY | | | | | | SERVICES, | | | | | | CORE | | + + + + + + | CELLULAR | 0 | <=0 /lpf | [facility] | | | CASTS | | | LABORATORY | | | | | | SERVICES, | | | | | | CORE | | + + + + + + | TRIPLE P04 | None | None /hpf | [facility] | | | CRYSTALS | | | LABORATORY | | | | | | SERVICES, | | | | | | CORE | | + + + + + + | CALCIUM | None | None /hpf | [facility] | | | OXALATE | | | LABORATORY | | | KATHE | | | SERVICES, | | | | | | CORE | | + + + + + + | URIC ACID | None | None /hpf | [facility] | | | [facility] | | | LABORATORY | | | | | | SERVICES, | | | | | | CORE | | + + + + + + | AMORPHOUS | None | None /hpf | [facility] | | | CRYSTALS | | | LABORATORY | | | | | | SERVICES, | | | | | | CORE | | + + + + + + + + | Specimen | + + | Urine | + + + + + + + | Performing | Address | City/State/Zipcode | Phone Number | | Organization | | | | + + + + + | [facility] | [address] | [place] [address] | | | SERVICES, CORE | [address] | | | + + + + + URINE SCREEN FOR CULTURE (01/01/2017 10:54 AM PDT) + + + + + [...] + + | Urine | + + + + + | [...] | + + + + + | [facility] | [address] | [place] [address] | | | [place], [place] | [address] | | | + + + + + URINE CULTURE WORKUP (01/01/2017 10:54 AM PDT) + + | Specimen | + + | Urine | + + + + + | Narrative | Performed At | + + + | Culture Report: Multiple organisms are present indicating probable | [facility] - | | contamination or colonization not related to infection. Further | [facility] - | | work-up of these organisms may result in clinically misleading | [facility] | | information due to the low numbers and /or mixture of organisms | | | present. Recollection is suggested if clinically indicated. | | + + + + + + + + | Performing | Address | City/State/Zipcode | Phone Number | | Organization | | | | + + + + + | [facility] | [address] | [place] [address] | | | [facility] | | | | + + + + + CULTURE, URINE NKECHI (01/01/2017 10:54 AM PDT) + + + + + + | Component | Value | Ref Range | Performed | Pathologist | | | | | At | Signature | + + + + + + | URINE | See Cx Results (A) | | [facility] | | | CULTURE | | | LABORATORY | | | [facility] | | | SERVICES, | | | | | | CORE | | + + + + + + + + | Specimen | + + | Urine | + + + + + + + | Performing | Address | City/State/Zipcode | Phone Number | | Organization | | | | + + + + + | [facility] | [address] | [place] [address] | | | SERVICES, CORE | [address] | | | + + + + + ED -VALERIE BENZ (01/01/2017 10:00 AM PDT) + + + + + + | Component | Value | Ref Range | Performed | Pathologist | | | | | At | Signature | + + + + + + | ED BG POC | 26 | 23 - 29 mmol/L | [facility] - | | | TC02 | | | [facility] | | | | | | [facility] | | | | | | OF CARE | | | | | | TESTS | | + + + + + + | ED BG POC | 7.30 (L) | 7.35 - 7.45 | [facility] - | | | PH | | | [facility] | | | | | | [facility] | | | | | | OF CARE | | | | | | TESTS | | + + + + + + | ED BG POC | 50 (H) | 35 - 50 mmHg | [facility] - | | | PCO2 | | | [facility] | | | | | | [facility] | | | | | | OF CARE | | | | | | TESTS | | + + + + + + | ED BG POC | 25 | 22 - 28 mmol/L | [facility] - | | | HCO3 | | | [facility] | | | | | | [facility] | | | | | | OF CARE | | | | | | TESTS | | + + + + + + | ED BG POC | -1.0 | mmol/L | [facility] - | | | BE | | | [facility] | | | | | | [facility] | | | | | | OF CARE | | | | | | TESTS | | + + + + + + | ED BG POC | 67 (H) | 30 - 55 mmHg | [facility] - | | | PO2 | | | [facility] | | | | | | [facility] | | | | | | OF CARE | | | | | | TESTS | | + + + + + + | ED BG POC | 91 | % | [facility] - | | | SO2 | | | [facility] | | | | | | [facility] | | | | | | OF CARE | | | | | | TESTS | | + + + + + + | ED LACTATE | 0.9 | 0.5 - 2.2 | [facility] - | | | POC | | mmol/L | [facility] | | | | | | [facility] | | | | | | OF CARE | | | | | | TESTS | | + + + + + + | ED BG POC | 98.2 F | | [facility] - | | | TEMP | | | [facility] | | | [...] [facility] | [address] | [place], [place] | | | [facility] | [address] | [address] | | | TESTS | | | | + + + + + ANTIBODY SCREEN (01/01/2017 9:06 AM PDT) + + + + + [...] | + + + + + | [facility] | [address] | [place] [address] | | | SERVICES, | [address] | | | | TRANSFUSION MEDICINE | | | | + + + + + ABO & RH TYPE (01/01/2017 9:06 AM PDT) + + + + + [...] [facility] | [address] | [place] [address] | | | SERVICES, | [address] | | | | TRANSFUSION MEDICINE | | | | + + + + + CBC AND AUTO DIFF (01/01/2017 9:06 AM PDT) + + + + + + | Component | Value | Ref Range | Performed | Pathologist | | | | | At | Signature | + + + + + + | WHITE CELL | 8.97 | 3.50 - 10.80 | [facility] | | | COUNT | | K/cu mm | LABORATORY | | | | | | SERVICES, | | | | | | CORE | | + + + + + + | RED CELL | 4.13 | 4.00 - 5.20 | [facility] | | | COUNT | | M/cu mm | LABORATORY | | | | | | SERVICES, | | | | | | CORE | | + + + + + + | HEMOGLOBIN | 11.1 (L) | 12.0 - 16.0 | [facility] | | | | | g/dL | LABORATORY | | | | | | SERVICES, | | | | | | CORE | | + + + + + + | HEMATOCRIT | 36.1 | 36.0 - 46.0 % | [facility] | | | | | | LABORATORY | | | | | | SERVICES, | | | | | | CORE | | + + + + + + | MCV | 87.4 | 80.0 - 96.0 fL | [facility] | | | | | | LABORATORY | | | | | | SERVICES, | | | | | | CORE | | + + + + + + | MCHC | 30.7 | 33.0 - 35.5 | [facility] | | | | | g/dL | LABORATORY | | | | | | SERVICES, | | | | | | CORE | | + + + + + + | RDW SD | 50.9 (H) | 35.1 - 46.3 fL | [facility] | | | | | | LABORATORY | | | | | | SERVICES, | | | | | | CORE | | + + + + + + | PLATELET | 258 | 150 - 400 K/cu | [facility] | | | COUNT | | mm | LABORATORY | | | | | | SERVICES, | | | | | | CORE | | + + + + + + | MPV | 9.6 (L) | 9.7 - 12.3 fL | [...] + + + + | NEUTROPHIL | 58.4 | 50.0 - 70.0 % | [facility] | | | % | | | LABORATORY | | | | | | SERVICES, | | | | | | CORE | | + + + + + + | LYMPHOCYTE | 28.3 | 18.0 - 42.0 % | [facility] | | | % | | | LABORATORY | | | | | | SERVICES, | | | | | | CORE | | + + + + + + | MONOCYTE % | 8.1 | 3.5 - 9.0 % | [facility] | | | | | | LABORATORY | | | | | | SERVICES, | | | | | | CORE | | + + + + + + | EOS % | 4.5 (H) | 1.0 - 3.0 % | [facility] | | | | | | LABORATORY | | | | | | SERVICES, | | | | | | CORE | | + + + + + + | BASO % | 0.4 | 0.0 - 2.0 % | [facility] | | | | | | LABORATORY | | | | | | SERVICES, | | | | | | CORE | | + + + + + + | IG% | 0.3Comment: Immature | 0.0 - 0.6 % | [...] + + + + | NEUTROPHIL | 5.23 | 1.80 - 7.70 | [facility] | | | # | | K/cu mm | LABORATORY | | | | | | SERVICES, | | | | | | CORE | | + + + + + + | LYMPHOCYTE | 2.54 | 1.00 - 4.80 | [facility] | | | # | | K/cu mm | LABORATORY | | | | | | SERVICES, | | | | | | CORE | | + + + + + + | MONOCYTE # | 0.73 | 0.10 - 0.90 | [facility] | | | | | K/cu mm | LABORATORY | | | | | | SERVICES, | | | | | | CORE | | + + + + + + | EOS # | 0.40 | 0.00 - 0.50 | [facility] | | | | | K/cu mm | LABORATORY | | | | | | SERVICES, | | | | | | CORE | | + + + + + + | BASO # | 0.04 | 0.00 - 0.10 | [facility] | | | | | K/cu mm | LABORATORY | | | | | | SERVICES, | | | | | | CORE | | + + + + + + | IG# | 0.03 | 0.00 - 0.03 | [facility] | [...] | + + + + + | [facility] | [address] | [place] [address] | | | SERVICES, CORE | [address] | | | + + + + + COAGULOPATHY PANEL (INR,APTT,FIBRINOGEN) (01/01/2017 9:06 AM PDT) + +---------+ + + + | Component | Value | Ref Range | Performed | Pathologist | | | | | At | Signature | + +---------+ + + + | INR | 1.10 | 0.90 - 1.20 INR | [facility] | | | | | | LABORATORY | | | | | | SERVICES, | | | | | | CORE | | + +---------+ + + + | APTT | 28.6 | 26.0 - 36.0 | [facility] | | | | | seconds | LABORATORY | | | | | | SERVICES, | | | | | | CORE | | + +---------+ + + + | FIBRINOGEN | 552 (H) | 200 - 450 mg/dL | [facility] | | | LEVEL | | | LABORATORY | | | [...] with mech. valves (2.5 - 3.5) INR APTT | [facility], CORE | | Therapeutic Range: (75 - 120) sec | | | Heparin levels of 0.35 - 0.7 U/mL | | + + + + + + + + | Performing | Address | City/State/Zipcode | Phone Number | | Organization | | | | + + + + + | [facility] | [address] | [place] [address] | | | [facility], CORE | [address] | | | + + + + + COMPLETE METABOLIC SET (NA,K,CL,CO2,BUN,CREAT,GLUC,CA,AST,ALT,BILI TOTAL,ALK PHOS,ALB,PROT TOTAL) (01/01/2017 9:06 AM PDT) + +---------+ + + + | Component | Value | Ref Range | Performed | Pathologist | | | | | At | Signature | + +---------+ + + + | GLUCOSE, | 115 (H) | 60 - 99 [...] | | | LABORATORY | | | SOMALI | | | SERVICES, | | | | | | CORE | | + +---------+ + + + | EGFR NON | >60 | >60 mL/min | [facility] | | | -RAJNI | | | LABORATORY | | | RICAN | | | SERVICES, | | | | | | CORE | | + +---------+ + + + | SODIUM, | 145 | 136 - 145 | [facility] | [...] +---------+ + + + | TOTAL | 7.0 | 6.4 - 8.2 g/dL | [facility] | | | PROTEIN, | | | LABORATORY | | | PLASMA | | | SERVICES, | | | (LAB) | | | CORE | | + +---------+ + + + | ALBUMIN, | 2.9 (L) | 3.5 - 4.7 g/dL | [...] +---------+ + + + | AST(SGOT) | 18 | <=41 U/L | [facility] | | [...] the MDRD equation recommended by the | [facility] | | National Kidney Disease Education Program. Estimated GFR | LABORATORY | | Interpretive Information: <60 mL/min/1.73 sq m | [facility], CORE | | Chronic Kidney Disease <15 [...] | + + + + + | [facility] | [address] | [place] [address] | | | SERVICES, CORE | [address] | | | + + + + + ED INFORMATION EXCHANGE (01/01/2017 8:22 AM PDT) + + + + + + | Component | Value | Ref Range | Performed | Pathologist | | | | | At | Signature | + + + + + + | [facility] | [id number] | | [facility] | | | | [id number] | | MEDICAL | | | | | | TECHNOLOGIE | | | | | | S | | + + + + + + + + | Specimen | + + | | + + + + + | Narrative | Performed At | + + + | [facility] has no Care Guidelines for this patient. CARE PROVIDERS | [facility] | | Name | MEDICAL | | Phone Type | TECHNOLOGIES | | Service Dates ---- | | | ----- ---- | | | RADHA GOODRICH at [facility] | | | [facility] Unknown Primary Care | | | Unknown - Current Radha Goodrich DO | | | [phone] Primary Care | | | Unknown - Current | | + + + + + + + + | Performing | Address | City/State/Zipcode | Phone Number | | Organization | | | | + + + + + | [facility] | [address] | [place], [place] | [phone] | | TECHNOLOGIES | [address] | [address] | | + + + + + documented in this encounter Visit Diagnoses + + | Diagnosis | + + | Ventral hernia without obstruction or gangrene - Primary Ventral hernia, unspecified, | | without mention of obstruction or gangrene | + + | Type 2 diabetes mellitus without complication, with long-term current use of insulin | | (HCC) | + + | Morbid obesity, unspecified obesity type (HCC) | + + documented in this encounter Administered Medications + +--------+ + +------+------+ | Medication Order | MAR | Action | Dose | Rate | Site | | | Action | Date | | | | + +--------+ + +------+------+ | acetaminophen (TYLENOL) tablet | Given | 01/03/20 | 1,000 mg | | | | 1,000 mg 1,000 mg, oral, EVERY 6 | | 17 9:08 | | | | | HOURS, First dose on [facility] 01/01/17 | | AM PDT | | | | | at 1745, Until Discontinued | | | | | | + +--------+ + +------+------+ +-------+ + +---+---+ | Given | 01/03/20 | 1,000 mg | | | | | 17 4:26 | | | | | | AM PDT | | | | +-------+ + +---+---+ | Given | 01/02/20 | 1,000 mg | | | | | 17 10:19 | | | | | | PM PDT | | | | +-------+ + +---+---+ + +---+ | | | + +---+ | ALPRAZolam (XANAX) tablet 1 mg | | | 1 mg, oral, THREE TIMES DAILY | | | NEEDED, Starting Jasmyen 01/01/17 at | | | 1744, Until Thu01/02/17 at 1734, | | | anxiety | | + +---+ | | | + +---+ + +-------+ +-------+---+---+ | aspirin EC tablet 81 mg 81 mg, | Given | 01/03/20 | 81 mg | | | | oral, DAILY, First dose on Jasmyne | | 17 8:51 | | | | | 01/01/17 at 1930, Until | | AM PDT | | | | | Discontinued | | | | | | + +-------+ +-------+---+---+ +-------+ +-------+---+---+ | Given | 01/02/20 | 81 mg | | | | | 17 9:02 | | | | | | PM PDT | | | | +-------+ +-------+---+---+ + +---+ | | | + +---+ | bisacodyl (DULCOLAX) | | | suppository 10 mg 10 mg, rectal, | | | DAILY NEEDED, Starting Jasmyne | | | 01/01/17 at 2301, Until Thu01/02/17 | | | at 1734, 2nd line for no BM in | | | past 2 days OR if no response to | | | MIRALAX or if patient unable to | | | tolerate oral | | + +---+ | | | + +---+ | dextrose 50 % in water IV 25 mL | | | 25 mL, intravenous, NEEDED, | | | Starting Thu01/01/17 at 1751, | | | Until Thu01/02/17 at 1734, CBG | | | less than 70 mg/dL if patient | | | unable to take PO, per Adult | | | Hypoglycemia Protocol | | + +---+ | | | + +---+ + +-------+ +--------+---+---+ | doxycycline monohydrate | Given | 01/03/20 | 100 mg | | | | (MONODOX) capsule 100 mg 100 mg, | | 17 8:51 | | | | | oral, TWICE DAILY, 6 doses, | | AM PDT | | | | | First dose on [facility] 01/01/17 at 2100, | | | | | | | Last dose on Thu01/04/17 at 0700 | | | | | | + +-------+ +--------+---+---+ +-------+ +--------+---+---+ | Given | 01/02/20 | 100 mg | | | | | 17 8:51 | | | | | | PM PDT | | | | +-------+ +--------+---+---+ +---+---+ | | | +---+---+ + + + +---------+---+--------+ | fentaNYL (DURAGESIC) 25 mcg/hr | Applied | 01/03/20 | 1 patch | | Right | | 1 patch 1 patch, transdermal, | Patch | 17 9:07 | | | Arm | | EVERY 72 HOURS, First dose on Fri | | AM PDT | | | | | 01/02/17 at 0800, Until | | | | | | | Discontinued | | | | | | + + + +---------+---+--------+ +---+---+ | | | +---+---+ + +-------+ +-------+---+---+ | FLUoxetine (PROZAC) capsule 60 | Given | 01/02/20 | 60 mg | | | | mg 60 mg, oral, ONCE, 1 dose, | | 17 6:19 | | | | | Jasmyne 01/01/17 at 1830 | | PM PDT | | | | + +-------+ +-------+---+---+ +---+---+ | | | +---+---+ + +-------+ +--------+---+---+ | gabapentin (NEURONTIN) capsule | Given | 01/03/20 | 300 mg | | | | 300 mg 300 mg, oral, FOUR TIMES | | 17 8:51 | | | | | DAILY, First dose on [facility] 01/01/17 | | AM PDT | | | | | at 1800, Until Discontinued | | | | | | + +-------+ +--------+---+---+ +-------+ +--------+---+---+ | Given | 01/02/20 | 300 mg | | | | | 17 10:19 | | | | | | PM PDT | | | | +-------+ +--------+---+---+ | Given | 01/02/20 | 300 mg | | | | | 17 6:20 | | | | | | PM PDT | | | | +-------+ +--------+---+---+ + +---+ | | | + +---+ | glucagon (GLUCAGEN) injection 1 | | | mg 1 mg, intramuscular, | | | NEEDED, Starting Jasmyne 01/01/17 at | | | 1751, Until Thu01/02/17 at 1734, | | | CBG less than 70 mg/dL per Adult | | | Hypoglycemia Protocol | | + +---+ | | | + +---+ | glucose chewable tablet 16 g | | | 16 g, oral, NEEDED, Starting | | | Jasmyne 01/01/17 at 1751, Until Thu | | | 01/02/17 at 1734, CBG less than 70 | | | mg/dL per Adult Hypoglycemia | | | Protocol | | + +---+ | | | + +---+ + +-------+ +------+---+---+ | HYDROmorphone (DILAUDID) | Given | 01/02/20 | 1 mg | | | | injection 0.5-1 mg 0.5-1 mg, | | 17 2:42 | | | | | intravenous, EVERY 20 MINUTES | | PM PDT | | | | | NEEDED, 4 doses, Starting Jasmyne | | | | | | | 01/01/17 at 0904, Until Jasmyne 01/01/17 | | | | | | | at 1442, moderate pain, severe | | | | | | | pain | | | | | | + +-------+ +------+---+---+ +-------+ +------+---+---+ | Given | 01/02/20 | 1 mg | | | | | 17 1:07 | | | | | | PM PDT | | | | +-------+ +------+---+---+ | Given | 01/02/20 | 1 mg | | | | | 17 11:17 | | | | | | AM PDT | | | | +-------+ +------+---+---+ +---+---+ | | | +---+---+ + +-------+ + +---+---------+ | insulin glargine (LANTUS) | Given | 01/02/20 | 40 Units | | Abdomen | | injection 40 Units 40 Units, | | 17 10:27 | | | | | subcutaneous, AT BEDTIME, First | | PM PDT | | | | | dose (after last modification) on | | | | | | | Jasmyne 01/01/17 at 2200, Until | | | | | | | Discontinued | | | | | | + +-------+ + +---+---------+ + +---+ | | | + +---+ | insulin lispro (HUMALOG) | | | injection subcutaneous, FOUR | | | TIMES DAILY, First dose on [facility] | | | 01/01/17 at 2200, Until | | | Discontinued | | + +---+ | | | + +---+ + +-------+ +--------+---+---+ | magnesium oxide (MAG-OX) tablet | Given | 01/03/20 | 400 mg | | | | 400 mg 400 mg, oral, DAILY, | | 17 8:51 | | | | | First dose on [facility] 01/01/17 at 1945, | | AM PDT | | | | | Until Discontinued | | | | | | + +-------+ +--------+---+---+ +-------+ +--------+---+---+ | Given | 01/02/20 | 400 mg | | | | | 17 9:02 | | | | | | PM PDT | | | | +-------+ +--------+---+---+ +---+---+ | | | +---+---+ + +-------+ + +---+---+ | metFORMIN (GLUCOPHAGE) tablet | Given | 01/03/20 | 1,000 mg | | | | 1,000 mg 1,000 mg, oral, TWICE | | 17 8:50 | | | | | DAILY WITH MEALS, First dose on | | AM PDT | | | | | Jasmyne 01/01/17 at 1945, Until | | | | | | | Discontinued | | | | | | + +-------+ + +---+---+ +-------+ + +---+---+ | Given | 01/02/20 | 1,000 mg | | | | | 17 9:02 | | | | | | PM PDT | | | | +-------+ + +---+---+ +---+---+ | | | +---+---+ + +-------+ +-------+---+---+ | OLANZapine (ZYPREXA) tablet 30 | Given | 01/02/20 | 30 mg | | | | mg 30 mg, oral, ONCE, 1 dose, | | 17 6:19 | | | | | Jasmyne 01/01/17 at 1830 | | PM PDT | | | | + +-------+ +-------+---+---+ + +---+ | | | + +---+ | ondansetron (ZOFRAN) injection | | | 4 mg 4 mg, intravenous, EVERY 12 | | | HOURS NEEDED, Starting Jasmyne | | | 01/01/17 at 1559, Until 01/02/17 | | | at 1734, nausea/vomiting, first | | | line | | + +---+ | | | + +---+ + +-------+ +------+---+---+ | oxyCODONE (immediate release) | Given | 01/02/20 | 5 mg | | | | (ROXICODONE) tablet 5 mg 5 mg, | | 17 4:09 | | | | | oral, EVERY 4 HOURS NEEDED, | | PM PDT | | | | | Starting Jasmyne 01/01/17 at 1558, | | | | | | | Until Jasmyne 01/01/17 at 1848, | | | | | | | moderate pain | | | | | | + +-------+ +------+---+---+ +---+---+ | | | +---+---+ + +-------+ +------+---+---+ | oxyCODONE (immediate release) | Given | 01/03/20 | 5 mg | | | | (ROXICODONE) tablet 5 mg 5 mg, | | 17 11:22 | | | | | oral, EVERY 3 HOURS NEEDED, | | AM PDT | | | | | Starting Jasmyne 01/01/17 at 1900, | | | | | | | Until Thu01/02/17 at 1734, | | | | | | | moderate pain | | | | | | + +-------+ +------+---+---+ +-------+ +------+---+---+ | Given | 01/03/20 | 5 mg | | | | | 17 8:50 | | | | | | AM PDT | | | | +-------+ +------+---+---+ | Given | 01/03/20 | 5 mg | | | | | 17 4:30 | | | | | | AM PDT | | | | +-------+ +------+---+---+ + +---+ | | | + +---+ | polyethylene glycol (MIRALAX) | | | packet 17 g 17 g, oral, DAILY, | | | First dose on Thu01/02/17 at 0900, | | | Until Discontinued | | + +---+ | | | + +---+ | polyethylene glycol (MIRALAX) | | | packet 34 g 34 g, oral, THREE | | | TIMES DAILY NEEDED, Starting | | | Jasmyne 01/01/17 at 2301, Until Fri | | | 01/02/17 at 1734, 1st line - for no | | | BM for 2 days | | + +---+ | | | + +---+ + +-------+ +--------+---+---+ | potassium chloride SR (K-DUR) | Given | 01/03/20 | 60 mEq | | | | tablet 60 mEq 60 mEq, oral, FOUR | | 17 8:51 | | | | | TIMES DAILY, First dose on Jasmyne | | AM PDT | | | | | 01/01/17 at 1945, Until | | | | | | | Discontinued | | | | | | + +-------+ +--------+---+---+ +-------+ +--------+---+---+ | Given | 01/02/20 | 60 mEq | | | | | 17 10:32 | | | | | | PM PDT | | | | +-------+ +--------+---+---+ | Given | 01/02/20 | 60 mEq | | | | | 17 9:07 | | | | | | PM PDT | | | | +-------+ +--------+---+---+ +---+---+ | | | +---+---+ + +-------+ +---------+---+---+ | senna-docusate (SENOKOT S) | Given | 01/03/20 | 2 | | | | 8.6-50 mg 2 tablet 2 tablet, | | 17 9:08 | tablets | | | | oral, TWICE DAILY, First dose on | | AM PDT | | | | | 01/02/17 at 0900, Until | | | | | | | Discontinued | | | | | | + +-------+ +---------+---+---+ +---+---+ | | | +---+---+ + +---------+ + +---+---+ | sodium chloride 0.9% IV | New Bag | 01/02/20 | 1,000 mL | | | | infusion 1,000 mL, intravenous, | | 17 9:47 | | | | | ONCE, 1 dose, [facility] 01/01/17 at 0945 | | AM PDT | | | | + +---------+ + +---+---+ +---+---+ | | | +---+---+ + +-------+ +-------+---+---+ | thyroid tablet 30 mg 30 mg, | Given | 01/03/20 | 30 mg | | | | oral, DAILY, First dose on Thu | | 17 8:50 | | | | | 01/01/17 at 1945, Until | | AM PDT | | | | | Discontinued | | | | | | + +-------+ +-------+---+---+ +-------+ +-------+---+---+ | Given | 01/02/20 | 30 mg | | | | | 17 8:52 | | | | | | PM PDT | | | | +-------+ +-------+---+---+ +---+---+ | | | +---+---+ + +-------+ +-------+---+---+ | topiramate (TOPAMAX) tablet 50 | Given | 01/03/20 | 50 mg | | | | mg 50 mg, oral, TWICE DAILY, | | 17 8:50 | | | | | First dose on Thu01/01/17 at 2100, | | AM PDT | | | | | Until Discontinued | | | | | | + +-------+ +-------+---+---+ +-------+ +-------+---+---+ | Given | 01/02/20 | 50 mg | | | | | 17 8:51 | | | | | | PM PDT | | | | +-------+ +-------+---+---+ +---+---+ | | | +---+---+ + +-------+ +--------+---+---+ | torsemide (DEMADEX) tablet 100 | Given | 01/03/20 | 100 mg | | | | mg 100 mg, oral, TWICE DAILY | | 17 8:50 | | | | | (DIURETIC), First dose on Thu | | AM PDT | | | | | 01/01/17 at 1945, Until | | | | | | | Discontinued | | | | | | + +-------+ +--------+---+---+ +---+---+ | | | +---+---+ + +-------+ +--------+---+---+ | traZODone (DESYREL) tablet 150 | Given | 01/02/20 | 150 mg | | | | mg 150 mg, oral, AT BEDTIME, | | 17 10:19 | | | | | First dose on Thu01/01/17 at 2200, | | PM PDT | | | | | Until Discontinued | | | | | | + +-------+ +--------+---+---+ +---+---+ | | | +---+---+ documented in this encounter
--- OUTSIDE RECORDS SUMMARY | ~2020-03-26 | XMS | Encounter Summary ---
Demographics + + + | Address | [address] | | | [place] [address] | + + + | Home Phone [...] [place], [place] | | | | | [address] | | + + + + + | Ellie Vang | ECON | Unknown | | + + + + + Care Team Providers + +------+ + | Care Recycling Manager Name | Role | Phone | [...] Visit | Medicine Clinic at | J, MISSILE CONTROL PILOT | (Primary Dx); | | | | [facility] | | Dysphagia, | | | | [address] | | unspecified type; | | | | [facility] | | Hypertension, | | | | and Healing, | | unspecified type; | | | | [address] | | Hyperlipidemia, | | | | [place], [place] | | unspecified | | | | [address] | | hyperlipidemia type; | | | | [phone] | | Diastolic | | | | [...] | | | | | | ([facility]) | +--------+---------+ + + + Anesthesia Record [...] | | Endotracheal Tube; 7; Oral; | SPICE MILLER | SPICE MILLER | | | Cuffed; 06/23/18; 1542 | [...] this encounter Patient Instructions Patient Instructions Tiara Mckeon FNP - 06/16/2018 3:15 PM [facility] PREOPERATIVE INSTRUCTIONS Please consider having an influenza [...] your procedure. Surgery check-in location: Admitting - [facility], [facility] Surgery Check in Time: The Preoperative [...] it is after office hours, call the [facility] unionmelt operator at [phone] and ask them to page him or [...] weight loss and diuretic tx, follows with card services specialist Hypothyroidism stabilized on hormone replacement Type 2 [...] renal failure no electrolyte abnormalities no dialysis Urology/Physical Chemistry Professor: Urologic Conditions: nephrolithiasis Endo: Diabetes: type 2 [...] sublingual Place under tongue once daily. CALCIUM [id number] ORAL Take 2 tablets by mouth two [...] Allergic rhinitis Anemia Anxiety Bipolar disorder ([facility]) Chronic wound infection of abdomen from 2010 Cough Depression Diverticulitis of colon Dizziness Glaucoma Heart burn Hemorrhoids Hernia of abdominal wall Incisional hernia, incarcerated 2012 Insomnia Irregular periods Kidney stone Leaking of urine Leg sore Lymphedema Morbid obesity with body mass index of 70 and over in adult ([facility]) Myalgia and myositis Nausea Neck pain Numbness Osteoarthritis of knee Palpitations Pneumonia Shortness of breath Staphylococcal infection Stroke ([facility]) TIA (transient ischemic attack) due to [...] Dr. Andie Brian Incisional hernia repair 03/01/2015 [facility]/ Dr. Cantu. 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 Appears comp ensated today. Hypothyroidism stabilized on hormone replacement. Take on DOS as usual Type 2 diabetes, well controlled with A1c 6.1 Thank you for the opportunity to contribute to this patient's care. HILDA Lagos [facility] PREOPER[facility] 4TH FLOOR [address] [facility] [address] I advised the patient regarding NPO [...] | | 2019 | sherrill | | HILDA [address] | | | | | | [place], [place] | | | | | | [address] | | | | | | [phone] | | | | | | | [...]
--- OUTSIDE RECORDS SUMMARY | ~2020-03-26 | XMS | Encounter Summary ---
Demographics + + + | Address | [address] | | | [place] [address] | + + + | Home Phone [...] [place], [place] | | | | | [address] | | + + + + + | Ellie Vang | ECON | Unknown | | + + + + + Care Team Providers + +------+ + | Care Public Area Attendant Name | Role | Phone | + +------+ + | Fadi Goodrich DO | PCP | | + +------+ + Reason for Visit + +--------+ + | Reason | Onset | Comments | | | Date | | + +--------+ + | Refill Request | 10/31/ | Phentermine | | | 2016 | | + +--------+ + Encounter Details +--------+ + + + + | Date | Type | Department | Care Team | Description | +--------+ + + + + | 10/31/ | Telephone | Cardiology | Randell Franks, | Refill Request | | 2015 | | Preventive at [facility] | MD [address] | (Phentermine) | | | | [address] | [place], [place] | | | | | [facility] | [address] | | | | | and [place], | [phone] | | | | | [place] [address] | | | | | | [place], [place] | | | | | | [address] | | | | | | [phone] | | | +--------+ + + + [...] this encounter Miscellaneous Notes Telephone Encounter - Corazon Alexis RN - 11/01/2015 2:29 PM PDTRefill was phoned to pharmacy elephone E ncounter - Rhona Mccullough MA - 11/01/2015 1:47 PM PDTWill route to KELSIE Chandra to have her olga lidia l in the Phentermine. el ephone Encounter - Shayan Gama - 11/01/2015 1:11 PM PDTPharmacy Preference: [facility] (on file in chart) ([facility] name and location) Provider: Dr. Franks Medication: Phentermine How many days' worth of medication does patient have? 0 If less than 2 days on hand, route to MED REFILL POOL as HIGH PRIORITY. Other Relevant Information: Patient called stating the pharmacy has not received the refi ll request and to please re send. Please call patient once request has been sent. Best number to reach patient today: Phone number listed Best time to reach the patient is between and . ~~~ROUTE TO P CAR MED REFILL ~~~ If less than 2 days on hand, send as HIGH PRIORITY documented in this encounter Plan of Treatment +--------+ + + + + | Date | Type | Specialty | Care Team | Description | +--------+ + + + + | 04/04/ | Telephone-S | Surgery | Orquidea Cristobal, | | | 2019 | cheduled | | [facility] [address] | | | | | | [place], [place] | | | | | | [address] | | | | | | [phone] | | | | | | | | +--------+ + + + + documented as of this encounter Visit Diagnoses Not on filedocumented in this encounter"
--- OUTSIDE RECORDS SUMMARY | ~2020-03-26 | XMS | Encounter Summary ---
Demographics + + + | Address | [address] | | | [place] [address] | + + + | Home Phone [...] [place], [place] | | | | | [address] | | + + + + + | Ellie Vang | ECON | Unknown | | + + + + + Care Team Providers + +------+ + | Care Zinc Plating Machine Operator Name | Role | Phone | + +------+ + | Fadi Goodrich DO | PCP | | + +------+ + Encounter Details +--------+ + + + + | Date | Type | Department | Care Team | Description | +--------+ + + + + | 02/24/ | Abstract | Cardiology | Randell Franks, | | | 2015 | | Preventive at [facility] | MD [address] | | | | | [address] | [place], [place] | | | | | [facility] | [address] | | | | | and [place], | [phone] | | | | | [address] | | | | | | [facility] [place] | | | | | | [address] | | | | | | [phone] | | | +--------+ + + + [...] | | 2020 | cheduhipolito | | MOLYBDENUM STEAMER OPERATOR [address] | | | | | | [place], [place] | | | | | | [address] | | | | | | [phone] | | | | | | | | +--------+ + + + + documented as of this encounter Visit Diagnoses Not on filedocumented in this encounter"
--- OUTSIDE RECORDS SUMMARY | ~2020-03-26 | XMS | Encounter Summary ---
Demographics + + + | Address | [address] | | | [place] [address] | + + + | Home Phone [...] [place], [place] | | | | | [address] | | + + + + + | Ellie Vang | ECON | Unknown | | + + + + + Care Team Providers + +------+ + | Care Service Desk Director Name | Role | Phone | [...] | | | | | | [place], [place] | | | | | | [address] | | | | | | [phone] | | | +--------+ + + + [...] | | 2020 | cheloveled | | ELECTRONIC SYSTEMS TECHNICIAN [address] | | | | | | [place] | | | | | | [address] | | | | | | [phone] | | | | | | | | +--------+ + + + + documented as of this encounter Visit Diagnoses Not on filedocumented in this encounter"
--- OUTSIDE RECORDS SUMMARY | ~2020-03-26 | XMS | Encounter Summary ---
Demographics + + + | Address | [address] | | | [place] [address] | + + + | Home Phone | | + + + | Preferred Language | Unknown | + + + | Marital Status | | + + + | Presybeterian Affiliation | Unknown | + + + | Race | White | + + + | Ethnic Group | Not or | + + + Author + + + | Author | [facility] | | | and [place] | + + + | Organization | [facility] | | | and [place] | + + + | Address | Unknown | + + + | Phone | Unavailable | + + + Support + + +---------+ + | Name | Relationship | Address | Phone | + + +---------+ + | Katalina Padilla | ECON | Unknown | | + + +---------+ + | Ellei Barnett | ECON | Unknown | | + + +---------+ + Care Team Providers + +------+ + | Care Vp Ad Products And Planning Name | Role | Phone | + +------+ + | Jorje Hill | PCP | | + +------+ + Reason for Visit Evaluate & Treat (Routine) + +--------+ + + + + | Status | Reason | Specialty | Diagnoses / | Referred By | Referred To | | | | | Procedures | Contact | Contact | + +--------+ + + + + | Authorized | | Neurology | Diagnoses | Sergio, | Brain, | | | | | Cyclic | Jorje Dunn | MD Camille | | | | | vomiting | [address] | [address] | | | | | syndrome | [address] | [address] | | | | | Migraine | [place], | D | | | | | without | [place] [address] | [place] | | | | | aura, | Phone: | [address] | | | | | intractable, | [phone] | Phone: | | | | | without | Fax: | [phone] | | | | | status | [phone] | Fax: | | | | | migrainosus | | [phone] | + +--------+ + + + + Encounter Details +--------+ + + + + | Date | Type | Department | Care Team | Description | +--------+ + + + + | 01/23/ | Virtual | [facility] | Camille De La Paz, | Intractable chronic | | 2020 | Office | NEUROLOGY [address] | common migraine | | | Visit | [address] | [address] | without aura | | | | [place], [place] | [place] [address] | (Primary Dx); | | | | [address] | [phone] | Medication overuse | | | | [phone] | | headache | +--------+ + + + + Social [...] of this encounter Patient Instructions Patient Instructions Camille De La Paz MD - 01/24/2020 7:45 AM PDT Keep headache diary, sleep hygiene : go to bed at the same time daily, avoid working in the bedroom, avoid trigge rs including excessive coffee, soda, food triggers, not skip meals, maintain hydration, 30 -40 mins of aerobic exercise atleast 3 times a week, isometric exercises for the neck, ribo flavin 400mg daily may help. Discussed about head preventative medications You are already on metoprolol. Another BP medication such as Verapamil would be contraindic ated. You are also taking Topamax. Discuss with Dr Hill about cutting back to 200mg a day as higher doses are typically not helpful for headaches. You are also on antidepressants. Adding another would not be as helpful. Consider gabapentin (seizure medication) Take 100mg 1 cap three times a day for a week Then take 2 caps three times a day Stop the medication or call the clinic if any side effects as below Other alternatives Include Botox injections Gabapentin capsules or tablets Brand Names: Active-PAC with Gabapentin, Neurontin What is this medicine? GABAPENTIN (GA ba pen tin) is used to control seizures in certain types of epilepsy. It is also used to treat certain types of nerve pain. How should I use this medicine? Take this medicine by mouth with a glass of water. Follow the directions on the prescriptio n label. You can take it with or without food. If it upsets your stomach, take it with food. Take your medicine at regular intervals. Do not take it more often than directed. Do not st op taking except on your doctor's advice. If you are directed to break the 600 or 800 mg tablets in half as part of your dose, the ex tra half tablet should be used for the next dose. If you have not used the extra half tablet within 28 days, it should be thrown away. A special MedGuide will be given to you by the pharmacist with each prescription and refill . Be sure to read this information carefully each time. Talk to your survey methodologist regarding the use of this medicine in children. While this drug m ay be prescribed for children as young as 3 years for selected conditions, precautions do ap ply. What side effects may I notice from receiving this medicine? Side effects that you should report to your doctor or health clinical care manager as soon as p ossible: allergic reactions like skin rash, itching or hives, swelling of the face, lips, or tong ue breathing problems suicidal thoughts, mood changes Side effects that usually do not require medical attention (report to your doctor or health clinical care manager if they continue or are bothersome): dizziness drowsiness headache nausea, vomiting swelling of ankles, feet, hands tiredness What may interact with this medicine? This medicine may interact with the following medications: alcohol antihistamines for allergy, cough, and cold certain medicines for anxiety or sleep certain medicines for depression like amitriptyline, fluoxetine, sertraline certain medicines for seizures like phenobarbital, primidone certain medicines for stomach problems general anesthetics like halothane, isoflurane, methoxyflurane, propofol local anesthetics like lidocaine, pramoxine, tetracaine medicines that relax muscles for surgery narcotic medicines for pain phenothiazines like chlorpromazine, mesoridazine, prochlorperazine, thioridazine What if I miss a dose? If you miss a dose, take it as soon as you can. If it is almost time for your next dose, ta ke only that dose. Do not take double or extra doses. Where should I keep my medicine? Keep out of reach of children. This medicine may cause accidental overdose and if it taken by other adults, children , or pets. Mix any unused medicine with a substance like cat litter or coffee grounds. Then throw the medicine away in a sealed container like a sealed bag or a coffee can with a lid. Do not use the medicine after the expiration date. Store at room temperature between 15 and 30 degrees C (59 and 86 degrees F). What should I tell my health care provider before I take this medicine? They need to know if you have any of these conditions: history of drug abuse or alcohol abuse problem kidney disease lung or breathing disease suicidal thoughts, plans, or attempt; a previous suicide attempt by you or a family memb er an unusual or allergic reaction to gabapentin, other medicines, foods, dyes, or preserva tives or trying to get breast-feeding What should I watch for while using this medicine? Visit your doctor or health clinical care manager for regular checks on your progress. You may want to keep a record at home of how you feel your condition is responding to treatment. You may want to share this information with your doctor or health clinical care manager at each vis it. You should contact your doctor or health clinical care manager if your seizures get worse or if you have any new types of seizures. Do not stop taking this medicine or any of your seiz ure medicines unless instructed by your doctor or health clinical care manager. Stopping your me dicine suddenly can increase your seizures or their severity. Wear a medical identification bracelet or chain if you are taking this medicine for seizure s, and carry a card that lists all your medications. You may get drowsy, dizzy, or have blurred vision. Do not drive, use machinery, or do anyth ing that needs mental alertness until you know how this medicine affects you. To reduce dizz y or fainting spells, do not sit or stand up quickly, especially if you are an older patient . Alcohol can increase drowsiness and dizziness. Avoid alcoholic drinks. Your mouth may get dry. Chewing sugarless gum or sucking hard candy, and drinking plenty of water will help. The use of this medicine may increase the chance of suicidal thoughts or actions. Pay speci al attention to how you are responding while on this medicine. Any worsening of mood, or tho ughts of suicide or dying should be reported to your health clinical care manager right away. Women who become while using this medicine may enroll in the [place]ptic Drug Registry by calling . This registry collects informatio n about the safety of antiepileptic drug use during . NOTE:This sheet is a summary. It may not cover all possible information. If you have questi ons about this medicine, talk to your doctor, pharmacist, or health care provider. Copyright 2020 [employer] documented in this encounter Progress Notes Camille De La Paz MD - 01/24/2020 7:45 AM PDTFormatting of this note might be different f rom the original. This exam was initially conducted via a secure 256-bit AES encrypted bidirectional video se ssion. This visit was converted to virtual visit due to COVID-19 pandemic. Service was provided [id number] with the patient via interactive videoconferencing Video start time 808 am Video end time 842 am Total time (in minutes) 45+ minutes including review of records, face to face time, documen tation including orders and finalizing care plan You have chosen to receive care through the use of telemedicine. Telemedicine enables [facility] care providers at different locations to provide safe, effective and convenient care throu gh the use of technology. As with any health care service, there are risks associated with t he use of telemedicine, including equipment failure, poor image resolution and information s ecurity issues. Do you understand the risks and benefits of telemedicine as I have explained them to you? " Yes" Have your questions regarding telemedicine been answered? "Yes" Patient is currently at home Do you consent to the use of telemedicine in your medical care today? Yes. Last question, I need to confirm where are you physically located right now? Answer: home Patient confirms they are located in a state where I, Camille De La Paz MD am licensed. Subjective: Patient ID: Elzbieta Cristina is a 44 y.o. female. CC: Headaches HPI:Elzbieta is a 44 yo R handed lady from [place], [place] She has a h/o stroke at age 18, gastric bypass, hypercoagulable state /DVT on anticoagulati on, HTN, diet controlled DM, PCOS, bipolar disorder, anxiety, abdominal hernia s/p repair, h /o 3 abdominal surgeries earlier in 2019, ongoing sinus infection, h/o AMARA on Bipap I have reviewed PCP notes including imaging reports. H/o migraines since age 18 after she had a stroke. Has been on migraine prophylaxis - with topamax. She has used imitrex which did not help. I s on maxalt. On topamax for a couple of years. Baseline Migraines - R side Frequency - 2-3 a week Duration - 2 days Sound and light sensitive, nausea, dizziness. A year ago, it worsened. Hernia got worse and she underwent repair earlier in the year but no improvement in headach e Started blacking out 4 months ago Stand up and everything would go black. She would collapse and would be out for seconds Initially frequent but none for last 2 months Associated with fuzzy vision (not frankly double) before she would pass out. Needed help to go to bathroom or walk as she was both unsteady on feet and due to impaired vision No loss of vision while sitting or lying down Recent - 2 a week, still severe intensity 10/10, throbbing, wants to go to sleep to deal wi th pain Current abortive use No maxalt. No OTC pain medications. Percocet - 4 a day Current prophylactic - Topamax 300mg a day (recent increase by PCP) Has CT head without contrast 06/01/2019 - R occipital and parietal encephalomalacia Review of Systems Constitutional: Positive for activity change, appetite change and fatigue. HENT: Positive for sinus pressure. Eyes: Positive for photophobia, pain, redness and visual disturbance. Cardiovascular: Positive for palpitations. Gastrointestinal: Positive for abdominal pain, constipation, diarrhea, nausea and vomiting. Musculoskeletal: Positive for arthralgias, back pain, gait problem, myalgias and neck pain. Neurological: Positive for dizziness, syncope, facial asymmetry, weakness, light-headedness , numbness and headaches. Psychiatric/Behavioral: Positive for agitation, confusion, decreased concentration, dysphor ic mood and sleep disturbance. The patient is nervous/anxious. All other systems reviewed and are negative. Current Outpatient Medications: ALPRAZolam (XANAX) 0.5 mg tablet, Take 1 mg by mouth 3 times daily as needed Twice a d ay., Disp: , Rfl: ascorbic acid (VITAMIN C) 500 MG tablet, Take 1,000 mg by mouth Daily., Disp: , Rfl: atenolol (TENORMIN) 50 mg tablet, Take 1 tablet by mouth nightly. (Patient taking diff erently: Take 100 mg by mouth nightly Take 100 mg daily.), Disp: 30 tablet, Rfl: 11 Yoypqzr-Ajoeljehb-Sxvjokr D (CITRACAL CALCIUM+D PO), Take 4 tablets by mouth 2 times d aily., Disp: , Rfl: chlorproMAZINE (THORAZINE) 100 mg tablet, Take 100 mg by mouth nightly., Disp: , Rfl: cyanocobalamin (VITAMIN B-12) 1000 MCG tablet, Take 1,000 mcg by mouth Daily., Disp: , Rfl: Docusate Sodium (DULCOLAX STOOL SOFTENER PO), Take 200 mg by mouth 2 times daily., Dis p: , Rfl: ergocalciferol (VITAMIN D-2) 50,000 units capsule, Take 1 capsule by mouth every 7 day s., Disp: , Rfl: ferrous gluconate (FERGON) 324 mg tablet, Take 324 mg by mouth., Disp: , Rfl: lurasidone (LATUDA) 20 mg tablet, Take 40 mg by mouth Daily., Disp: , Rfl: magnesium oxide (MAG-OX) 400 mg tablet, Take 400 mg by mouth 2 times daily., Disp: , R fl: metoclopramide (REGLAN) 10 mg tablet, Take 10 mg by mouth as needed for Nausea., Disp: , Rfl: Multiple Vitamins-Minerals (MULTIVITAMIN WITH MINERALS) tablet, Take 2 tablets by mout h Daily., Disp: , Rfl: oxyCODONE-acetaminophen (PERCOCET) 10-325 mg per tablet, Take 1 tablet by mouth every 6 hours as needed for Pain., Disp: , Rfl: PARoxetine (PAXIL) 10 mg tablet, Take 40 mg by mouth Daily., Disp: , Rfl: phentermine (ADIPEX-P) 37.5 mg tablet, Take 1 tablet by mouth every morning., Disp: , Rfl: potassium chloride 20 mEq CR tablet, 40 mEq., Disp: , Rfl: pramipexole (MIRAPEX) 0.125 MG tablet, pramipexole 0.125 mg tablet-2 tablets qhs, Disp : , Rfl: rizatriptan (MAXALT-ADMINISTRATIVE LAW JUDGE) 5 mg disintegrating tablet, Take 5 mg by mouth as needed for Migraine. May repeat in 2 hours if needed, Disp: , Rfl: spironolactone (ALDACTONE) 50 mg tablet, Take 50 mg by mouth Daily., Disp: , Rfl: thyroid (ALIGNER THYROID) 30 mg tablet, ALIGNER Thyroid 30 mg tablet TAKE ONE TABLET BY MOUTH O NCE DAILY, Disp: , Rfl: topiramate (TOPAMAX) 50 MG tablet, 100 mg 3 times daily., Disp: , Rfl: torsemide (DEMADEX) 100 mg tablet, Take 100 mg by mouth 2 times daily., Disp: , Rfl: warfarin (COUMADIN) 5 mg tablet, Take 5 mg by mouth Daily., Disp: , Rfl: Physical examination: Limited examination, the patient is not in any distress. Pleasant affect and mood. Provides history and medication list without difficulty. Patient is alert, oriented to time and location, exhibits goal oriented fluent speech. Comp rehends conversation easily and follows instructions. EOMI Face symmetric. Movements intact. Impression: Complex medical history Chronic migraine vs tension headache - intractable Medication overuse headache Bipolar disorder Chronic pain on narcotics Recommendations: Keep headache diary, sleep hygiene : go to bed at the same time daily, avoid working in t he bedroom, avoid triggers including excessive coffee, soda, food triggers, not skip meals, maintain hydration, 30 -40 mins of aerobic exercise atleast 3 times a week, isometric exerc ises for the neck, riboflavin 400mg daily may help. I have strongly counseled the patient that she should not use OTC or prescription pain medi cations more than what is absolutely needed as they cause medication overuse headaches (appr oximately 6 tabs per week of all types) Keep headache diary, sleep hygiene : go to bed at the same time daily, avoid working in th e bedroom, avoid triggers including excessive coffee, soda, food triggers, not skip meals, maintain hydration, 30 -40 mins of aerobic exercise atleast 3 times a week, isometric exerci ses for the neck, riboflavin 400mg daily may help. Discussed about head preventative medications You are already on metoprolol. Another BP medication such as Verapamil would be contraindic ated. You are also taking Topamax. Discuss with Dr Hill about cutting back to 200mg a day as higher doses are typically not helpful for headaches. You are also on antidepressants. Adding another would not be as helpful. Consider gabapentin (seizure medication) Take 100mg 1 cap three times a day for a week Then take 2 caps three times a day Stop the medication or call the clinic if any side effects as below Other alternatives Include Botox injections and I have provided information about side eff ects and expectations as well. -Emphasized to the patient, in line with general public health advice in the midst of COVID -19 pandemic, people with underlying neurological condition should ensure wash hands frequen tly and practice social distancing. Call for any new symptoms, contact PCP and also inform u s for nay symptoms concerning for infection. Have counseled the patient about the clinical course of ongoing neurological symptoms and a nswering a number of questions, the patient expressed understanding, appreciation and would like to proceed with the recommendations. Return to the clinic in 6-8 weeks, call for any new neurological changes or symptoms or qu estions. documented in this encounter Plan of Treatment +--------+ + + + + | Date | Type | Specialty | Care Team | Description | +--------+ + + + + | 03/29/ | Office | Cardiology | Sulema Altamirano | | | 2019 | Visit | | [address] | | | | | | [address] | | | | | | [place] [address] | | | | | | [phone] | | | | | | | | +--------+ + + + + | 04/18/ | Procedure | Neurology | Camille De La Paz, | | | 2019 | visit | | MD [address] | | | | | | [address] | | | | | | [place] [address] | | | | | | [phone] | | | | | | | | +--------+ + + + + documented as of this encounter Visit Diagnoses + + | Diagnosis | + + | Intractable chronic common migraine without aura - Primary | + + | Medication overuse headache Drug induced headache, not elsewhere classified | + + documented in this encounter
--- OUTSIDE RECORDS SUMMARY | ~2020-03-26 | XMS | Encounter Summary ---
Demographics + + + | Address | [address] | | | [place] [address] | + + + | Home Phone | | + + + | Preferred Language | Unknown | + + + | Marital Status | | + + + | Mormonism Affiliation | Unknown | + + + | Race | White | + + + | Ethnic Group | Not or | + + + Author + + + | Author | [facility] | | | and [place] | + + + | Organization | [facility] | | [...] Team Providers + +------+ + | Care Apprentice Instrument Technician Name | Role | Phone | + +------+ + PCP | Unavailable | + +------+ + Encounter Details +--------+ + + + + | Date | Type | Department | Care Team | Description | +--------+ + + + + | 10/20/ | Orders Only | [facility] | Conversion | | | 2016 | | NEPHROLOGY [place] | Transaction, | | | | | [address] | Provider Unknown | | | | | [address] [place], [place] | | | | | | [address] | (Fax) | | | | | [phone] | | | +--------+ + + + [...] | | | | | | [place] [address] | | | | | | [phone] | | | | | | | | +--------+ + + + + | 04/18/ | Procedure | Neurology | Camille De La Paz, | | | 2019 | visit | | MD [address] | | | | | | [address] | | | | | | [place] [address] | | | | | | [phone] | | | | | | | | +--------+ + + + + documented as of this encounter Procedures + +--------+ + + + | Procedure Name | Priori | Date/Time | Associated Diagnosis | Comments | | | ty | | | | + +--------+ + + + | BASIC METABOLIC | Routin | 10/20/2016 | | Results for this | | PANEL | e | 12:00 AM | | procedure are in the | | | | PDT | | results section. | + +--------+ + + + documented in this encounter Results Basic Metabolic Panel (10/20/2016 12:00 AM PDT) + + + + + + | Component | Value | Ref Range | Performed | Pathologist | | | | | At | Signature | + + + + + + | Glucose, | 133 (A) | 70 - 100 mg/dL | EXTERNAL | | | Fasting | | | LAB | | + + + + + + | BUN | 16 | 6 - 23 mg/dL | EXTERNAL | | | | | | LAB | | + + + + + + | Creatinine | 0.89 | 0.60 - 1.35 | EXTERNAL | | | | | mg/dL | LAB | | + + + + + + | BUN/Creatin | 18.0 | 6.0 - 28.6 | EXTERNAL | | | ine Ratio | | | LAB | | + + + + + + | Calcium | 9.5 | 8.4 - 10.2 | EXTERNAL | | | | | mg/dL | LAB | | + + + + + + | Na | 137 | 132 - 143 | EXTERNAL | | | | | mmol/L | LAB | | + + + + + + | K | 4.1 | 3.6 - 5.1 | EXTERNAL | | | | | mmol/L | LAB | | + + + + + + | Cl | 102 | 95 - 112 mmol/L | EXTERNAL | | | | | | LAB | | + + + + + + | CO2 | 17 (A) | 19 - 31 mmol/L | EXTERNAL | | | | | | LAB | | + + + + + + | Anion Gap | 22.1 (A) | 7 - 21 mmol/L | EXTERNAL | | | | | | LAB | | + + + + + + | Estimated | 71 [...]
--- OUTSIDE RECORDS SUMMARY | ~2020-03-26 | XMS | Encounter Summary ---
Demographics + + + | Address | [address] | | | [place] [address] | + + + | Home Phone [...] [place], [place] | | | | | [address] | | + + + + + | Ellie Vang | ECON | Unknown | | + + + + + Care Team Providers + +------+ + | Care Casing Blower Name | Role | Phone | + +------+ + | Fadi Goodrich DO | PCP | | + +------+ + Encounter Details +--------+ + + + + | Date | Type | Department | Care Team | Description | +--------+ + + + + | 10/05/ | Abstract | Digestive Health | Hernandez Brian, | | | 2012 | | [place] [address] | [address] [facility] | | | | | [address] [facility] | [facility] | | | | | for Health and | [place], [place] | | | | | [facility] | [address] | | | | | [place], [place] | [phone] | | | | | [address] | | | | | | [phone] | | | +--------+ + + + [...] | | 2020 | sherrill | | BOXING INSPECTOR [address] | | | | | | [place] | | | | | | [address] | | | | | | [phone] | | | | | | | | +--------+ + + + + documented as of this encounter Visit Diagnoses Not on filedocumented in this encounter"
--- OUTSIDE RECORDS SUMMARY | ~2020-03-26 | XMS | Encounter Summary ---
Demographics + + + | Address | [address] | | | [place] [address] | + + + | Home Phone [...] Author | [facility] | + + + | Organization | [facility] | + + + | Address | Unknown | + + + | Phone | Unavailable | + + + Support + + + + + | Name | Relationship | Address | Phone | + + + + + | Katalina Padilla | ECON | [address] | | | | | [place], [place] | | | | | [address] | | + + + + + | Ellie Vang | ECON | Unknown | | + + + + + Care Team Providers + +------+ + | Care Pea Viner Mechanic Name | Role | Phone | + +------+ + | Fadi Goodrich DO | PCP | | + +------+ + Encounter Details +--------+ + + + + | Date | Type | Department | Care Team | Description | +--------+ + + + + | 02/13/ | Abstract | Cardiology | Randell Franks, | | | 2015 | | Preventive at [facility] | MD [address] | | | | | [address] | [place], [place] | | | | | [facility] | [address] | | | | | and [place], | [phone] | | | | | [address] | | | | | | [facility] [place] | | | | | | [address] | | | | | | [phone] | | | +--------+ + + + [...] | | 2020 | cheduhipolito | | COMPLIANCE OFFICER [address] | | | | | | [place], [place] | | | | | | [address] | | | | | | [phone] | | | | | | | | +--------+ + + + + documented as of this encounter Visit Diagnoses Not on filedocumented in this encounter"
--- OUTSIDE RECORDS SUMMARY | ~2020-03-26 | XMS | Encounter Summary ---
Demographics + + + | Address | [address] | | | [place] [address] | + + + | Home Phone [...] + | Katalina Padilla | ECON | [address] | | | | | [place], [place] | | | | | [address] | | + + + + + | Ellie Vang | ECON | Unknown | | + + + + + Care Team Providers + +------+ + | Care Websphere Architect Name | Role | Phone | [...] | 2018 | Visit | Center at [facility] [address] | ACNP [address] | gastric bypass | | | | [address] | Ave [place], [place] | (Primary Dx); | | | | for Health and | [address] | Ventral hernia | | | | Healing, Building [address] | [phone] | without obstruction | | | | [facility] [place] | | or gangrene; Mixed | | | | [address] | | hyperlipidemia; | | | | [phone] | | Diabetes mellitus | | | [...] is doing Refill oxycodone Rx +Take acid content assistant for first 3 mos, then wean off [...] to POC and will call or send [facility] if any issues. documented in this encounter [...] times daily. , Disp: , Rfl: CALCIUM [id number]-GENIS ORAL, Take 2 tablets by mouth two [...] 70 and over in adult ([facility]) Myalgia and myositis Nausea Neck pain Numbness Osteoarthritis of knee Palpitations Pneumonia Shortness of breath Staphylococcal infection Stroke ([facility]) TIA (transient ischemic attack) due to Bromocriptine Tinea corporis UTI (urinary tract infection) Past Surgical History Procedure Laterality Date Tonsillectomy and adenoidectomy Appendectomy, open 2010 Umbilical hernia repair 2010 Treatment of ankle fracture with screws remaining Incision and drainage of wound abscess x2 midline transverse wound s/p open appendectomy 2010 Ventral hernia repair 10/2012 Dr. Andie Brian Incisional hernia repair 03/01/2015 [facility]/ Dr. Cantu. Primary fascial closure [...] History Narrative Updated 11/09/15 She lives in [place] with her mother and her sister (also her caregiver) lives in an apa rtment/duplex below. She has 2 grandchildren (age 4 and 7) who live with her daughter and son-in-law Her boyfriend lives in [place] HFpEF, DM2, HTN, Sleep Apnea (unable to [...] program here and refer her to our account development specialist who also has expertise in physical [...] Increase torsemide to pre-surgical dose +Take acid content assistant for first 3 mos, then wean off [...] she will make an appointment with her Director Of Estate to discuss insulin dosing and CBGs 10. [...] POC and will call or send Camila coronel if any issues. Start time 15:35, end time 15:55. I spent a total of 20 minutes face to face with this pat ient. Over 50% of visit was in counseling. ~ 10 minutes of additional time spent reviewing chart prior to visit and documenting after this visit. Ronna FINNEGAN SPRAY I PAINTER Bariatric Surgery Nurse Practitioner [facility] | [address] | [place], [place] | [address] | documented in this e ncounter Plan of Treatment +--------+ + + + + | Date | Type | Specialty | Care Team | Description | +--------+ + + + + | 04/04/ | Telephone-S | Surgery | Orquidea Cristobal, | | | 2019 | sherrill | | SPRAY I PAINTER [address] | | | | | | [place], [place] | | | | | | [address] | | | | | | [phone] | | | | | | | [...] + | [facility] | [address] | [place] [address] | | | [place] | | | | + + + [...]
--- OUTSIDE RECORDS SUMMARY | ~2020-03-26 | XMS | Encounter Summary ---
Demographics + + + | Address | [address] | | | [place] [address] | + + + | Home Phone | | + + + | Preferred Language | Unknown | + + + | Marital Status | | + + + | Pentecostal Affiliation | Unknown | + + + | Race | White | + + + | Ethnic Group | Not or | + + + Author + + + | Author | [facility] | | | and [place] | + + + | Organization | [facility] | | | [...] Team Providers + +------+ + | Care Disability Insurance Hearing Officer Name | Role | Phone | + +------+ + | Jorje Hill | PCP | | + +------+ + Encounter Details +--------+ + + + + | Date | Type | Department | Care Team | Description | +--------+ + + + + | 06/17/ | Telephone | [facility] | Christian Dawson, | | | 2018 | | CENTER CV INTRA OP | [address] | | | | | [address] | [place], | | | | | [place], [place] | [place] [address] | | | | | [address] | [phone] | | | | | [phone] | | | +--------+ + + + [...] | | | | | | [place] [address] | | | | | | [phone] | | | | | | | | +--------+ + + + + | 04/18/ | Procedure | Neurology | Camille De La Paz, | | | 2019 | visit | | [address] | | | | | | [place] | | | | | | [place] [address] | | | | | | [phone] | | | | | | | | +--------+ + + + + documented as of this encounter Visit Diagnoses Not on filedocumented in this encounter"
--- OUTSIDE RECORDS SUMMARY | ~2020-03-26 | XMS | Encounter Summary ---
Demographics + + + | Address | [address] | | | [place] [address] | + + + | Home Phone [...] [place], [place] | | | | | [address] | | + + + + + | Ellie Vang | ECON | Unknown | | + + + + + Care Team Providers + +------+ + | Care Cake Press Operator Helper Name | Role | Phone [...] 2017 | | [address] | [address] | [facility]STR[facility]PASS | | | | [facility] | [place], [place] | | | | | Hospital Admitting | [address] | | | | | Desk Located on the | [phone] | | | | | 9th floor | | | | | | [place], [place] | | | | | | [address] | | | +--------+---------+ + + + [...] Gavin ACNP - 03/03/2018 9:49 AM PDT [facility] RED SURGERY INPATIENT DISCHARGE SUMMARY Author: [...] to a bariatric full liquid diets. [facility] dietitian was consulted and they [...] at minimum. 5. Follow with PCP for Machine Strap Buckler within 1 - 2 weeks of discharge [...] mg by mouth two times daily. CALCIUM [id number]-GENIS ORAL Take 2 tablets by mouth two [...] yogurt or kefir. Nikko's Yogurt or Kefir, [employer]una Pharm[employer] Yogurt, and Chioban i Trinidadian Yogurt are common brands with beneficial probiotics. [...] are available over the counter at most [facility] stores. Nausea/Vomiting/Difficulty Swallowing Nausea/Vomiting/Difficulty swallowing: Could [...] hours per your instructions. Some medications, like Sanford, have Tylenol in it. Make sure you [...] (PCP) as this clinic does not provide [facility] chronic pain management services. When to Call [...] hours by calling the surgery office at [phone]. - After hours, weekends and holidays, you may call the hospital coupling machine operator at [phone] an d have the construction representative Red Surgery Team paged. OTHER DISCHARGE ORDERS [...] at minimum. 5. Follow with PCP for Machine Strap Buckler within 1 - 2 weeks of discharge [...] Center 03/10/2018 1:30 PM Dione Andre [facility] at [facility] 6th Floor [phone] FO OD AND NUT 03/10/2018 3:05 PM Ronna Clarke [facility] at [facility] 6th Floor [phone] Dig Health 04/01/2018 10:30 AM Dione Rubipsey [facility] at [facility] 6th Floor [phone] FO OD AND NUT 04/01/2018 11:00 AM Bertha Castanon [facility] at [facility] 6th Floor [phone] Dig Health 05/27/2018 2:30 PM Dione Rubipsey [facility] at [facility] 6th Floor [phone] FO OD AND NUT 05/27/2018 3:05 PM Ronna Valadezughn [facility] at [facility] 6th Floor [phone] Dig Health 05/27/2018 4:30 PM Demar [facility] at [facility] 15th Floor [phone] Comprehensiv 06/04/2018 10:35 AM Randell Franks Cardiology Preventive at [facility] [phone] Cardiology Discharging Physician: KAIN Agee Attending Physician: Bertha Castanon MD [facility] Red Surgery Pager# [phone] 9:50 AM 03/03/2018 documented in this enco [...] | | 0 | | | | [id number] | mouth two times | | | [...] date of discharge 03/03/18 PARTHA Calixto MS3 [facility] [employer] Demarcus Menon MD [...] for care ride home (pt lives in [place]) Demarcus Alas M.D. General Surgery Resident PGY-1 Pager: [phone] Bertha Ferrari MD - 10:00 AM PDTI [...] in this en counter H&P Notes Charo Sehlley MD - 03/01/2018 6:25 AM PDTI have seen and examined the patient. There has been no change in medical condition or physical exam since patient's most recent clinic visit on 02/22/18. The patient agrees to move forward with the procedure today. Charo Shelley MD [facility] [address] [id number] [place] [address] documented in this en counter Procedure Notes [...] Primary Surgeon: Bertha Castanon MD Co Surgeon laborer landscape: Eldon Gonzalez MD, Chief Resident Alexx Irwin [...] The jejunum was divided with 60 mm War stapler with white load and the distal staple line was marke d with silk suture. The mesentery was divided with harmonic ultrasonic device. The distal jejunum was measure to 150 cm. A stay-suture was placed at this location to the proximal di vided staple line (biliopancreatic limb). Enterotomies were created in each limb and a 60mm War stapler with white load was fired to create a [id number]-rj-azqn jejunojejunostomy. The anastamosis was confirmed to be widely patent and hemostatic. The common enterotomy was michael sed by placing 2 stay sutures along the enterotomy for retraction and firing an War 60mm stapler with white load across the [...] the lesser sac was entered. The 60mm War s tapler with blue load was placed [...] blue load of the 60mm stapler. The War was then fired longitudinally towards the angle of His to create the gastric pouch, leaving the gastrotomy from foreign body remov al, on the pouch. Dissection was performed retrogastric to connect posterior and anterior d issection planes and ensure adequate fundus exclusion. Additional fires of the War stap ler were performed with blue loads [...] ooze were controlled with 5 mm clip literacy teacher. A 25mm Orvil was passed transorally by [...] The jejunal enterotomy was closed with 60mm War stapler with a w demarcus load. Medially [...] and Dr. Wagner was present as my electrical assistant for th e entire procedure, given the technically challenging nature of this procedure. She assisted in all critical steps of the procedure. Dr. Gonzalez was present for endoscopy at the end of the procedure. Bertha Castanon MD, FACS, [facility] Bariatric Surgery documented in this en counter [...] Curre nt diabetic managed is provided by Machine Strap Buckler Dr. Franks. She is s/p Laparoscopic gas [...] 70 and over in adult ([facility]) Myalgia and myositis Nausea Neck pain Numbness Osteoarthritis of knee Palpitations Pneumonia Shortness of breath Staphylococcal infection Stroke ([facility]) TIA (transient ischemic attack) due to Bromocriptine Tinea corporis UTI (urinary tract infection) Past Surgical History Procedure Laterality Date Tonsillectomy and adenoidectomy Appendectomy, open 2010 Umbilical hernia repair 2010 Treatment of ankle fracture with screws remaining Incision and drainage of wound abscess x2 midline transverse wound s/p open appendectomy 2010 Ventral hernia repair 10/2012 Dr. Andie Brian Incisional hernia repair 03/01/2015 [facility]/ Dr. Cantu. Primary fascial closure and scar excision Outpatient Medications Prior to Admission Medications Prescriptions ALPRAZolam 1 mg oral tablet Sig: Take 1 mg by mouth three times daily as needed for anxiety. CALCIUM CRB&[id number]-Z6-[id number]-GENIS ORAL Sig: Take 2 tablets by mouth [...] History Narrative Updated 11/09/15 She lives in [place] with her mother and her sister (also her caregiver) lives in an apa rtment/duplex below. She has 2 grandchildren (age 4 and 7) who live with her daughter and son-in-law Her boyfriend lives in [place] HFpEF, DM2, HTN, Sleep Apnea (unable to tolerate CPAP), Hypothyroidism, [facility] ([facility] Last seen by [...] program here and refer her to our surgical instrument repair specialist who also has expertise in physical [...] T2DM. Current diabetic managed is provided by Machine Strap Buckler Dr. Franks. Her home brittany men includes [...] at minimum. 4. Follow with PCP for Machine Strap Buckler within 1 - 2 weeks of discharge [...] August & Fellow Myke Bergeron. Kaylee Ferguson [facility] Endocrinology, Diabetes, & Clinical Nutrition Pager [phone] aylee Ferguson [facility] - 03/02/2018 8:13 AM PDTFormatting of this [...] Curre nt diabetic managed is provided by Machine Strap Buckler Dr. Franks. She is s/p Laparoscopic gas [...] Andie Brian Incisional hernia repair 03/01/2015 [facility]/ Dr. Cantu. Primary fascial closure and scar excision Outpatient Medications Prior to Admission Medications Prescriptions ALPRAZolam 1 mg oral tablet Sig: Take 1 mg by mouth three times daily as needed for anxiety. CALCIUM CRB&DGP-R5-AIJ75-GENIS ORAL Sig: Take 2 tablets by mouth [...] History Narrative Updated 11/09/15 She lives in [place] with her mother and her sister (also her caregiver) lives in an apa rtment/duplex below. She has 2 grandchildren (age 4 and 7) who live with her daughter and son-in-law Her boyfriend lives in [place] HFpEF, DM2, HTN, Sleep Apnea (unable to tolerate CPAP), Hypothyroidism, Severe Obesity ([facility] max weight 495 lbs) Last seen by [...] program here and refer her to our surgical instrument repair specialist who also has expertise in physical [...] T2DM. Current diabetic managed is provided by Machine Strap Buckler Dr. Franks. Her home brittany men includes [...] recommendations will follow closer to discharge [facility] Endocrinology, Diabetes, & Clinical Nutrition Pager [phone] I spent 25 minutes in the care [...] Curre nt diabetic managed is provided by Machine Strap Buckler Dr. Franks. She is s/p Laparoscopic gas [...] Andie Brian Incisional hernia repair 03/01/2015 [facility]/ Dr. Cantu. Primary fascial closure and scar excision Outpatient Medications Prior to Admission Medications Prescriptions ALPRAZolam 1 mg oral tablet Sig: Take 1 mg by mouth three times daily as needed for anxiety. CALCIUM [id number]-[id number]-GENIS ORAL Sig: Take 2 tablets by mouth [...] History Narrative Updated 11/09/15 She lives in [place] with her mother and her sister (also her caregiver) lives in an apa rtment/duplex below. She has 2 grandchildren (age 4 and 7) who live with her daughter and son-in-law Her boyfriend lives in [place] HFpEF, DM2, HTN, Sleep Apnea (unable to [...] program here and refer her to our surgical instrument repair specialist who also has expertise in physical [...] T2DM. Current diabetic managed is provided by Machine Strap Buckler Dr. Franks. Her home brittany men includes [...] monitor. Recommendations: Place on Endotool. Kaylee Ferguson [facility] Endocrinology, Diabetes, & Clinical Nutrition Pager [phone] I spent 40 minutes in the care [...] and when/how to notify the doctor. The pari mutual ticket checker spoke with her about her changes to her insulin regimen. Patient verbalized understanding. All peripheral lines rem lisbet. Patient voiding, passing flatus and pain adequately managed. All questions answered by nursing staff. Discharge Nurse: CHIRAG HARVEY RN andoff - Daniella Godwin RN - 03/03/2018 6:50 AM PDTNursing Handoff [facility] IP NURSE HANDOFF: Jiang hospital course events: [...] tanding of education, expect good compliance. Macy Le[facility]plex Pager #[phone] andoff - Jasmin Godwin RN - 03/02/2018 [...] RN - 03/01/2018 6:00 PM PDTNursing Handoff [facility] IP NURSE HANDOFF: Jiang hospital course events: [...] Additional pain medication information: Functional Epidural: N/A EQUIPMENT MECHANIC SPECIALIST: N/A Respiratory: RR: 12, O2 Sat: 100 [...] 106 mL Contact Name: Dimple Contact Number: [phone] Family contacted: Yes Comment Belongings: with family documented in this encounter Plan of Treatment +--------+ + + + + | Date | Type | Specialty | Care Team | Description | +--------+ + + + + | 04/04/ | Telephone-S | Surgery | Orquidea Cristobal, | | | 2020 | cheduled | | KIER HAND [address] | | | | | | [place], [place] | | | | | | [address] | | | | | | [phone] | | | | | | | [...] | PDT | over, adult ([facility]) | results section. | + +--------+ + + + | CAPILLARY BLOOD | Routin | 03/03/2018 | Morbid obesity | Results for this | | GLUCOSE (NO CHG), | e | 6:28 AM | with BMI of 70 and | procedure are in the | | POC | | PDT | over, adult ([facility]) | results section. | + +--------+ + + + | CAPILLARY BLOOD | Routin | 03/02/2018 | Morbid obesity | Results for this | | GLUCOSE (NO CHG), | e | 9:17 PM | with BMI of 70 and | procedure are in the | | POC | | PDT | over, adult ([facility]) | results section. | + +--------+ + + + | CAPILLARY BLOOD | Routin | 03/02/2018 | Morbid obesity | Results for this | | GLUCOSE (NO CHG), | e | 6:50 PM | with BMI of 70 and | procedure are in the | | POC | | PDT | over, adult ([facility]) | results section. | + +--------+ + + + | CAPILLARY BLOOD | Routin | 03/02/2018 | Morbid obesity | Results for this | | GLUCOSE (NO CHG), | e | 3:46 PM | with BMI of 70 and | procedure are in the | | POC | | PDT | over, adult ([facility]) | results section. | + +--------+ + + + | CAPILLARY BLOOD | Routin | 03/02/2018 | Morbid obesity | Results for this | | GLUCOSE (NO CHG), | e | 2:36 PM | with BMI of 70 and | procedure are in the | | POC | | PDT | over, adult ([facility]) | results section. | + +--------+ + + + | CAPILLARY BLOOD | Routin | 03/02/2018 | Morbid obesity | Results for this | | GLUCOSE (NO CHG), | e | 1:33 PM | with BMI of 70 and | procedure are in the | | POC | | PDT | over, adult ([facility]) | results section. | + +--------+ + + + | CAPILLARY BLOOD | Routin | 03/02/2018 | Morbid obesity | Results for this | | GLUCOSE (NO CHG), | e | 11:36 AM | with BMI of 70 and | procedure are in the | | POC | | PDT | over, adult ([facility]) | results section. | + +--------+ + + + | CAPILLARY BLOOD | Routin | 03/02/2018 | Morbid obesity | Results for this | | GLUCOSE (NO CHG), | e | 10:32 AM | with BMI of 70 and | procedure are in the | | POC | | PDT | over, adult ([facility]) | results section. | + +--------+ + + + | CAPILLARY BLOOD | Routin | 03/02/2018 | Morbid obesity | Results for this | | GLUCOSE (NO CHG), | e | 9:23 AM | with BMI of 70 and | procedure are in the | | POC | | PDT | over, adult ([facility]) | results section. | + +--------+ + + + | CAPILLARY BLOOD | Routin | 03/02/2018 | Morbid obesity | Results for this | | GLUCOSE (NO CHG), | e | 8:36 AM | with BMI of 70 and | procedure are in the | | POC | | PDT | over, adult ([facility]) | results section. | + +--------+ + + + | CAPILLARY BLOOD | Routin | 03/02/2018 | Morbid obesity | Results for this | | GLUCOSE (NO CHG), | e | 7:35 AM | with BMI of 70 and | procedure are in the | | POC | | PDT | over, adult ([facility]) | results section. | + +--------+ + + + | CAPILLARY BLOOD | Routin | 03/02/2018 | Morbid obesity | Results for this | | GLUCOSE (NO CHG), | e | 6:33 AM | with BMI of 70 and | procedure are in the | | POC | | PDT | over, adult ([facility]) | results section. | + +--------+ + + + | CAPILLARY BLOOD | Routin | 03/02/2018 | Morbid obesity | Results for this | | GLUCOSE (NO CHG), | e | 5:28 AM | with BMI of 70 and | procedure are in the | | POC | | PDT | over, adult ([facility]) | results section. | + +--------+ + + + | CAPILLARY BLOOD | Routin | 03/02/2018 | Morbid obesity | Results for this | | GLUCOSE (NO CHG), | e | 4:36 AM | with BMI of 70 and | procedure are in the | | POC | | PDT | over, adult ([facility]) | results section. | + +--------+ + + + | CAPILLARY BLOOD | Routin | 03/02/2018 | Morbid obesity | Results for this | | GLUCOSE (NO CHG), | e | 2:46 AM | with BMI of 70 and | procedure are in the | | POC | | PDT | over, adult ([facility]) | results section. | + +--------+ + + + | CAPILLARY BLOOD | Routin | 03/02/2018 | Morbid obesity | Results for this | | GLUCOSE (NO CHG), | e | 12:32 AM | with BMI of 70 and | procedure are in the | | POC | | PDT | over, adult ([facility]) | results section. | + +--------+ + + + | CAPILLARY BLOOD | Routin | 03/01/2018 | Morbid obesity | Results for this | | GLUCOSE (NO CHG), | e | 10:31 PM | with BMI of 70 and | procedure are in the | | POC | | PDT | over, adult ([facility]) | results section. | + +--------+ + + + | CAPILLARY BLOOD | Routin | 03/01/2018 | Morbid obesity | Results for this | | GLUCOSE (NO CHG), | e | 8:21 PM | with BMI of 70 and | procedure are in the | | POC | | PDT | over, adult ([facility]) | results section. | + +--------+ [...] | PDT | over, adult ([facility]) | results section. | + +--------+ + + + | CAPILLARY BLOOD | Routin | 03/01/2018 | Morbid obesity | Results for this | | GLUCOSE (NO CHG), | e | 3:31 PM | with BMI of 70 and | procedure are in the | | POC | | PDT | over, adult ([facility]) | results section. | + +--------+ + + + | CAPILLARY BLOOD | Routin | 03/01/2018 | Morbid obesity | Results for this | | GLUCOSE (NO CHG), | e | 3:29 PM | with BMI of 70 and | procedure are in the | | POC | | PDT | over, adult ([facility]) | results section. | + +--------+ + + + | CAPILLARY BLOOD | Routin | 03/01/2018 | Morbid obesity | Results for this | | GLUCOSE (NO CHG), | e | 2:30 PM | with BMI of 70 and | procedure are in the | | POC | | PDT | over, adult ([facility]) | results section. | + +--------+ + + + | CAPILLARY BLOOD | Routin | 03/01/2018 | Morbid obesity | Results for this | | GLUCOSE (NO CHG), | e | 1:35 PM | with BMI of 70 and | procedure are in the | | POC | | PDT | over, adult ([facility]) | results section. | + +--------+ + + + | CAPILLARY BLOOD | Routin | 03/01/2018 | Morbid obesity | Results for this | | GLUCOSE (NO CHG), | e | 12:16 PM | with BMI of 70 and | procedure are in the | | POC | | PDT | over, adult ([facility]) | results section. | + +--------+ [...] [facility] | [address] | [place], [place] | | | [facility] | [address] | [address] | | | TESTS | | | [...] - [facility] | [address] | [place], [place] | | | [facility] | [address] | [address] | | | TESTS | | | [...] + + + | NKECHI AMES | [address] | [place], [place] | | | [facility] | [address] | [address] | | | TESTS | | | [...] [facility] | [address] | [place], [place] | | | [facility] | [address] | [address] | | | TESTS | | | [...] [facility] | [address] | [place], [place] | | | [facility] | [address] | [address] | | | TESTS | | | [...] + + + | NKECHI AMES | [address] | [place], [place] | | | [facility] | [address] | [address] | | | TESTS | | | [...] [facility] | [address] | [place], [place] | | | [facility] | [address] | [address] | | | TESTS | | | [...] [facility] | [address] | [place], [place] | | | [facility] | [address] | [address] | | | TESTS | | | [...] [facility] | [address] | [place], [place] | | | [facility] | [address] | [address] | | | TESTS | | | [...] [facility] | [address] | [place], [place] | | | [facility] | [address] | [address] | | | TESTS | | | [...] [facility] | [address] | [place], [place] | | | [facility] | [address] | [address] | | | TESTS | | | [...] [facility] | [address] | [place], [place] | | | [facility] | [address] | [address] | | | TESTS | | | [...] [facility] | [address] | [place], [place] | | | [facility] | [address] | [address] | | | TESTS | | | [...] - [facility] | [address] | [place], [place] | | | [facility] | [address] | [address] | | | TESTS | | | [...] AMES | [address] | [place], [place] | | | [facility] | [address] | [address] | | | TESTS | | | [...] [facility] | [address] | [place], [place] | | | [facility] | [address] | [address] | | | TESTS | | | [...] [facility] | [address] | [place], [place] | | | [facility] | [address] | [address] | | | TESTS | | | [...] AMES | [address] | [place], [place] | | | [facility] | [address] | [address] | | | TESTS | | | [...] [facility] | [address] | [place], [place] | | | [facility] | [address] | [address] | | | TESTS | | | [...] - Y[facility] | [address] | [place], [place] | | | [facility] | [address] | [address] | | | TESTS | | | [...] (H) | 70 - 99 mg/dL | [facility] - | | | GLUCOSE, [...] AMES | [address] | [place], [place] | | | [facility] | [address] | [address] | | | TESTS | | | [...] [facility] | [address] | [place], [place] | | | [facility] | [address] | [address] | | | TESTS | | | [...] - [facility] | [address] | [place], [place] | | | [facility] | [address] | [address] | | | TESTS | | | [...] AMES | [address] | [place], [place] | | | [facility] | [address] | [address] | | | TESTS | | | [...] [facility] | [address] | [place], [place] | | | [facility] | [address] | [address] | | | TESTS | | | [...] + + | NKECHI AMES | [address] | [place], [place] | | | [facility] | [address] | [address] | | | TESTS | | | | + + + + + EGD (ESOPHAGOGASTRODUODENOSCOPY) (03/01/2018 11:21 AM PDT) + + + | Narrative | Performed At | + + + | Bertha Castanon MD 03/01/2018 12:25 PM Date of Procedure: | | | 03/01/18 Primary Surgeon: Bertha Castanon MD Co Surgeon or | | | electrical assistant: Eldon Gonzalez MD, Chief Resident Alexx [...] The jejunum was divided with 60 mm War stapler with white | | | load [...] created in each limb and a 60mm War stapler | | | with white load was fired to create a [id number] | | | jejunojejunostomy. The anastamosis was confirmed to be widely | | | patent and hemostatic. The common enterotomy was closed by placing | | | 2 stay sutures along the enterotomy for retraction and firing an | | | War 60mm stapler with white load across the [...] | | | was entered. The 60mm War stapler with blue load was placed | [...] blue load of the 60mm stapler. The War was then fired | | | longitudinally towards the angle of His to create the gastric pouch, | | | leaving the gastrotomy from foreign body removal, on the pouch. | | | Dissection was performed retrogastric to connect posterior and | | | anterior dissection planes and ensure adequate fundus exclusion. | | | Additional fires of the War stapler were performed with blue | | [...] with | | | 5 mm clip literacy teacher. A 25mm Orvil was passed transorally by [...] was closed with 60mm | | | War stapler with a white load. Medially and [...] was present | | | as my electrical assistant for the entire procedure, given the technically | | | challenging nature of this procedure. She assisted in all critical | | | steps of the procedure. Dr. Gonzalez was present for endoscopy at the | | | end of the procedure. Bertha Castanon MD, FACS, [facility] | | | Bariatric Surgery | | [...] MD Co Surgeon or | | | electrical assistant: Eldon Gonzalez MD, Chief Resident Alexx [...] The jejunum was divided with 60 mm War stapler with white | | | load [...] created in each limb and a 60mm War stapler | | | with white load was fired to create a [id number]-wekw | | | jejunojejunostomy. The anastamosis was confirmed to be widely | | | patent and hemostatic. The common enterotomy was closed by placing | | | 2 stay sutures along the enterotomy for retraction and firing an | | | War 60mm stapler with white load across the [...] | | | was entered. The 60mm War stapler with blue load was placed | [...] blue load of the 60mm stapler. The War was then fired | | | longitudinally towards the angle of His to create the gastric pouch, | | | leaving the gastrotomy from foreign body removal, on the pouch. | | | Dissection was performed retrogastric to connect posterior and | | | anterior dissection planes and ensure adequate fundus exclusion. | | | Additional fires of the War stapler were performed with blue | | [...] with | | | 5 mm clip literacy teacher. A 25mm Orvil was passed transorally by [...] was closed with 60mm | | | War stapler with a white load. Medially and [...] was present | | | as my electrical assistant for the entire procedure, given the technically | | | challenging nature of this procedure. She assisted in all critical | | | steps of the procedure. Dr. Gonzalez was present for endoscopy at the | | | end of the procedure. Bertha Castanon MD, FACS, [facility] | | | Bariatric Surgery | | [...] + | NKECHI AMES | [address] | [place], [place] | | | [facility] | [address] | [address] | | | TESTS | | | [...] | | | 03/01/18 at 1139, Until Thu03/01/18 | | | | | [...]
--- OUTSIDE RECORDS SUMMARY | ~2020-03-26 | XMS | Encounter Summary ---
Demographics + + + | Address | [address] | | | [place] [address] | + + + | Home Phone | | + + + | Preferred Language | Unknown | + + + | Marital Status | | + + + | Evangelical Affiliation | Unknown | + + + | Race | White | + + + | Ethnic Group | Not or | + + + Author + + + | Author | [facility] | | | and Jeffana | + + + | Organization | [facility] | | | [...] + +------+ + | Care Director Of Content And Programming Name | Role | Phone | + +------+ + PCP | Unavailable | + +------+ + Encounter Details +--------+ + + + + | Date | Type | Department | Care Team | Description | +--------+ + + + + | 04/11/ | Hospital | [facility] | | ABSENCE OF | | 2001 | Encounter | CONVERSION DEP [address] | | MENSTRUATION | | | | [address] | | | | | | [facility] | | | | | | [address] | | | | | | [phone] | | | +--------+ + + + [...] | 03/29/ | Office | Cardiology | AdarshSulema | | | 2019 | Visit | | [address] | | | | | | [address] | | | | | | [place] [address] | | | | | | [phone] | | | | | | | | +--------+ + + + + | 04/18/ | Procedure | Neurology | Camille De La Paz, | | | 2019 | visit | | MD Saumya MOE | | | | | | [address] | | | | | | [place] [address] | | | | | | [phone] | | | | | | | | +--------+ + + + + documented as of this encounter Visit Diagnoses + + | Diagnosis | + + | Absence of menstruation | + + documented in this encounter"
--- OUTSIDE RECORDS SUMMARY | ~2020-03-26 | XMS | Encounter Summary ---
Demographics + + + | Address | [address] | | | [place] [address] | + + + | Home Phone [...] + | Katalina Padilla | ECON | [address] | | | | | [place], [place] | | | | | [address] | | + + + + + | Ellie Vang | ECON | Unknown | | + + + + + Care Team Providers + +------+ + | Care Gunner Mate Name | Role | Phone | + [...] | HA Roldan, | | | with PAPER PRODUCTION ENGINEER | | hypertension | [address] | GEMA JIANG | | | | | Right | [address] | [address] | | | | | heart | [place], [place] | [facility] | | | | | failure | [address] | Rd [facility] | | | | | ([facility]LY [facility]) Type | Phone: | [place] | | | | | 2 diabetes | [phone] | [address] | | | | | mellitus | Fax: | Phone: | | | | | without | [phone] | [phone] | | | | | complication | | Fax: | | | | | , with | | [phone] | | | | | long-term | | | | | | | current use | | | | | | | of insulin | | | | | | | ([facility]) | | | +--------+ + + + + + Encounter Details +--------+---------+ + + + | Date | Type | Department | Care Team | Description | +--------+---------+ + + + | 04/01/ | Office | Digestive Health | Dione Andre, | History of Frandy-en-Y | | 2018 | Visit | Center at [facility] [address] | [address] [facility] | gastric bypass | | | | [facility] | [facility] [address] | (Primary Dx); | | | | for [employer] and | [place], [place] | 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[facility], [facility] 2 | [address] | with insulin therapy | | | | [place], [place] | [phone] | ([facility]) | | | | [address] | | | | | | [phone] | | | +--------+---------+ + + + [...] Follow-Up Patient referred by: Randell Franks MD [address] [place] [address] Documented time of visit: 10:33 to 10:55 (22 minutes rujh-lw-yrew with patient) Surgery: Gastric Bypass Date of [...] tomato), cream of wheat occ, cottage cheese, welsh yogurt-light and fit, protein bar from [employer]. Unable to keep protei n shakes down. Fluid choices: water-4-5 bottles per day Supplementation: Flinstones, iron, vitamin D, vitamin C, Citracal supplement x 2 in the mor eusebio and 2 at night, magnesium, potassium, D97-lieefehk today Assessment: Vomiting likely due to volume [...] multivitamin & mineral (with iron) supplement, 2/day -8241-9835 mg calcium citrate with vitamin D/day (take in divided doses, not within 2 hour s of multivitamin or iron supplement) -500 mcg/day sublingual B12 supplement (or monthly injections) Continued to reinforce importance of mindful eating. Continue to increase physical activity. Follow up in [address],[place] Pager# [phone] Phone: [phone] documented in this en counter Plan of Treatment +--------+ + + + + | Date | Type | Specialty | Care Team | Description | +--------+ + + + + | 04/04/ | Telephone-S | Surgery | Orquidea Cristobal, | | | 2019 | cheduled | | HAT STOCK LAMINATING MACHINE OPERATOR [address] | | | | | | [place], [place] | | | | | | [address] | | | | | | [phone] | | | | | | | | +--------+ + + + + documented as of this encounter Procedures + +--------+ + + + | Procedure Name | Priori | Date/Time | Associated Diagnosis | Comments | | | ty | | | | + +--------+ + + + | MT MNT RE-ASSESSMNT | Routin | 04/01/2018 | [...]
--- OUTSIDE RECORDS SUMMARY | ~2020-03-26 | XMS | Encounter Summary ---
Demographics + + + | Address | [address] | | | [place] [address] | + + + | Home Phone [...] [place], [place] | | | | | [address] | | + + + + + | Ellie Vang | ECON | Unknown | | + + + + + Care Team Providers + +------+ + | Care Vision Care Associate Name | Role | Phone | + [...] | | | pain Morbid | [address] | | | | | obesity | [address] | Lesly Gutiérrez [facility] | | | | | (HCC) | [place], [place] | Hospital, | | | | | Procedures | [address] | 10th Floor | | | | | CT ABDOMEN & | Phone: | [place], [place] | | | | | PELVIS WWO | | [address] | | | | | IV CONTRAST | Fax: | Phone: | | | | | [place] [address] | [phone] | [phone] | | | | | ABDOMEN&PELV | | Fax: | | | | | IS | | [phone] | | | | | W/CONTRAST | | | | | | | See chart [...] | | | | | | | [place], [place] | | | | | | | [address] | | | | | | | Phone: | | | | | | | [phone] | | | | | | | Fax: | | | | | | | [phone] | +--------+--------+ + + + + Encounter Details +--------+---------+ + + + | Date | Type | Department | Care Team | Description | +--------+---------+ + + + | 10/02/ | Office | Digestive Health | Shereen Georges, | Abdominal pain | | 2015 | Visit | Center at [facility] [address] | ACNP [address] | (Primary Dx); Morbid | | | | [address] | Ave [place], [place] | obesity (HCC) | | | | for Health and | [address] | | | | | [facility], [facility] 2 | [phone] | | | | | [place], [place] | | | | | | [address] | | | | | | [phone] | | | +--------+---------+ + + + [...] up in th e air, Use a chair finisher.... And get it really dry. Then use corn starch ..... Then use medicated powder... Please go to the 3rd floor for the study... [place] [address] documented in this encounter Progress Notes Shereen Pinto ACNP - 10/02/2014 11:14 AM PDTFormatting of this note might be different fro m the original. BARIATRIC INITIAL VISIT Provider: Shereen Pinto DNP, DANIELLEP, FRENCH BINDING FOLDER Referring Provider: Dr. Goodrich Reason for Requested [...] with the surgeon. Shereen Pinto DNP, ACNP, FRENCH BINDING FOLDER Nurse Practitioner for Bariatric Surgery [facility] | [address] | [place], [place] | [address] | Potential Contraindications to Bariatric Surgery Age [...] other providers does not guarantee that the [facility] Bariatric Surger y program will deem you a surgical candidate. documented in this en counter Plan of Treatment +--------+ + + + + | Date | Type | Specialty | Care Team | Description | +--------+ + + + + | 04/04/ | Telephone-S | Surgery | Orquidea Cristobal, | | | 2019 | sherrill | | FRENCH BINDING FOLDER [address] | | | | | | [place], [place] | | | | | | [address] | | | | | | [phone] | | | | | | | [...] | | + +---------+ + + | [facility] DEPARTMENT OF | | | | | RADIOLOGY | | | | + +---------+ + + documented in this encounter Visit Diagnoses + + | Diagnosis | + + | Abdominal pain - Primary | + + | Morbid obesity (HCC) Morbid obesity | + + documented in this encounter
--- OUTSIDE RECORDS SUMMARY | ~2020-03-26 | XMS | Encounter Summary ---
Demographics + + + | Address | [address] | | | [place] [address] | + + + | Home Phone [...] + | Katalina Padilla | ECON | [address] | | | | | [place], [place] | | | | | [address] | | + + + + + | Ellie Vang | ECON | Unknown | | + + + + + Care Team Providers + +------+ + | Care Laserist Name | Role | Phone | + [...] | | | | | Center at [facility] [address] | [facility] [place] | | | | | [address] | [address] | | | | | [facility] and | [phone] | | | | | [facility] 2 | | | | | | [facility] [place] | | | | | | [address] | | | | | | [phone] | | | +--------+ + + + [...] this encounter Miscellaneous Notes Telephone Encounter - Stuart Thapa RN - 03/06/2014 10:20 AM PDTI called in Phentermine 37.5 MG [facility] to [facility] [address] [phone] Franks's order. STUART THAPA RN documented in this e ncounter Plan of Treatment +--------+ + + + + | Date | Type | Specialty | Care Team | Description | +--------+ + + + + | 04/04/ | Telephone-S | Surgery | Orquidea Cristobal, | | | 2020 | abrahamled | | REGISTRATION REP [address] | | | | | | [place] | | | | | | [address] | | | | | | [phone] | | | | | | | | +--------+ + + + + documented as of this encounter Visit Diagnoses Not on filedocumented in this encounter"
--- OUTSIDE RECORDS SUMMARY | ~2020-03-26 | XMS | Encounter Summary ---
Demographics + + + | Address | [address] | | | [place] [address] | + + + | Home Phone [...] + | Katalina Padilla | ECON | [address] | | | | | [place], [place] | | | | | [address] | | + + + + + | Ellie Vang | ECON | Unknown | | + + + + + Care Team Providers + +------+ + | Care Otr Flatbed Driver Name | Role | Phone | [...] | | | | | bypass | [place], | [facility], | | | | | Nausea and | [place] | 10th Floor | | | | | vomiting, | [address] | [place], [place] | | | | | intractabili | Phone: | [phone] | | | | | ty of | | Phone: | | | | | vomiting not | Fax: | [phone] | | | | | specified, | [phone] | Fax: | | | | | unspecified | | [phone] | | | | | vomiting | [...] | | | | | | CONTRAST [place] | | | | | | | CT SCAN OF | | | | | | | ABDOMEN | | | | | | | CONTRAST [place] | | | | | | | [...] Pending | | Plastic | Diagnoses | Welgriceldaans, | Pls | | Review | | Surgery | History of | Keren W, | Gen/Recon | | | | | Nilesh-en-Y | AGACNP [address] | | | | | gastric | [address] | [address] | | | | | bypass | [place], | [place] for | | | | | Nausea and | [place] | Health and | | | | | vomiting, | [address] | Healing, | | | | | intractabili | Phone: | Building 1, | | | | | ty of | [phone] | 5th Floor | | | | | vomiting not | Fax: | [place], [place] | | | | | specified, | [phone] | [address] | | | | | unspecified | | Phone: | | | | | vomiting | | [phone] | | | | | type | [...] of | Keren W, | [address] | | | | | Nilesh-en-Y | AGACNP [address] | | | | | gastric | [address] | Center for | | | | | bypass | [place], | [facility] and | | | | | Nausea and | [place] | Healing, | | | | | vomiting, | [address] | Building 2 | | | | | intractabili | Phone: | [place], [place] | | | | | ty of | | [address] | | | | | vomiting not | Fax: | Phone: | | | | | specified, | [phone] | [phone] | | | | | unspecified | | Fax: | | | | | vomiting | | [phone] | | | | | type | [...] | | | | | | | [place] UPPER GI | | | | | | | ENDOSCOPY,BI | | | | | | | OPSY | | | +--------+--------+ + + + + Reason for Visit Office Visit - E/M Services (Routine) +--------+ [...] | Bariatri Surg | | | with ORAL SURGERY TECHNICIAN | | hypertension | [address] | [address] | | | | | Right | [address] | [address] | | | | | heart | [place], [place] | [place] for | | | | | failure | [address] | Health and | | | | | ([facility]) Type | Phone: | Healing, | | | | | 2 diabetes | [phone] | Building 2 | | | | | mellitus | Fax: | [place], [place] | | | | | without | [phone] | [address] | | | | | complication | | Phone: | | | | | , with | | | | | | | long-term | | Fax: | | | | | current use | | [phone] | | | | | of insulin | | | | | | | ([facility]) | | | | | | [...] | 2019 | Visit | Center at [facility] [address] | AGACNP [address] | gastric bypass | | | | [address] | Ave [place], [place] | (Primary Dx); Nausea | | | | for Health and | [address] | and vomiting, | | | | Healing, Building 2 | [phone] | intractability of | | | | [facility] [place] | | vomiting not | | | | [address] | | specified, | | | | [...] getting fluids at a local clinic in [place] -I will contact you if further testing is indicated -follow up with once of our surgeons once testing is complete -get some protein de la o--isopure or premier protein de la o. documented in this encounter Progress Notes Melissa Garay RN - 03/01/2019 1:50 PM PDTSpoke with patient's PCP office [phone] and notified them that Infusion unit at [facility] (fax [phone]) requires a provider with privileges there to sign the IV infusion orders. Since Dr. Cardenas is out on maternity leave, SOFI Ulrich will check with provider covering. Infusion order and chart not e faxed to PCP at [phone]. Patient notified. harli Zayas - 03/01/2019 1:50 PM PDTPatient presents for blo od draw per Providers order Site: LEFT A/C Time: 14:30 Patient tolerated well; ONE ATTEMPT Keren Arcos AGACNP - 03/01/2019 1:50 PM PDT BARIATRIC SURGERY [...] vagina Allergic rhinitis Anemia Anxiety Bipolar disorder ([facility]) Chronic wound infection of abdomen from [...] Brian Incisional hernia repair 03/01/2015 [facility]/ Dr. Cantu. Primary fascial closure and scar excision Lap gastric byp, and nilesh-en-y gastroenterostomy w/ nilesh limb 150 cm or less 8 WIDr Dannie SR Social History Socioeconomic History Marital status: Single [...] file Gets together: Not on file Attends yarsani service: Not on file Active member of club or organization: Not on file Attends meetings of clubs or organizations: Not on file Relationship status: Not on file Other Topics Concern Not on file Social History Narrative Updated 11/09/15 She lives in [place] with her mother and her sister (also her caregiver) [facility]. She has 2 grandchildren (age 4 and 7) who live with her daughter and son-in-law Her boyfriend lives in [place] HFpEF, DM2, HTN, Sleep Apnea (unable to tolerate CPAP), Hypothyroidism, Severe Obesity ([facility] max weight 495 lbs) Last seen [...] program here and refer her to our cardiovascular invasive specialist who also has expertise in physical [...] buccal film, , Disp: , Rfl: CALCIUM CRB&DXT-Y2-YRF17-GENIS ORAL, Take 2 tablets by mouth two [...] iron) oral tablet, Take 1 tablet by mn ut once daily., Disp: 90 tablet, Rfl: 1 [...] be administered closer to her home in [place]. LR 1-2 L 3 times weekly, until [...] to plan and will call and/or send retickr message if any issues. Start time 1422, end time 1455. I spent a total of 33 minutes face to face with this patie nt. Over 50% of visit was in counseling. ALBINA Perrin Bariatric Surgery Nurse Practitioner [facility] | [address] | [place], [place] | [address] | documented in th is encounter Plan of Treatment +--------+ + + + + | Date | Type | Specialty | Care Team | Description | +--------+ + + + + | 04/04/ | Telephone-S | Surgery | Orquidea Cristobal, | | | 2020 | cheduled | | BRAKE REPAIR MECHANIC [address] | | | | | | [place], [place] | | | | | | [address] | | | | | | [phone] | | | | | | | | +--------+ + + + + + + +--------+ + + | Name | Type | Priori | Associated Diagnoses | Order Schedule | | | | ty | | | + + +--------+ + + | PREALBUMIN | Lab | Routin | History of | Expected: 06/02/2019 | | | | e | Nilesh-en-Y [...] + documented in this encounter Results X-RAY UGLuba CASTELLON (03/22/2019 11:04 AM PDT) + + | Specimen | + + | | + + + + + | Narrative | Performed At | + + + | EXAM: UGI BRIAN CASTELLON HISTORY: N&V, abdominal pain post RYGB | [...] | [facility] | [address] | [place] [address] | | | SERVICES, CORE | CLARENCE [...] | | | | | determined by [facility] | | | | | | Laboratories. See | | | | | | Compliance Statement B: | | | | | | [employer].BigML/CSPerformed | | | | | | by [facility],[address] | | | | | | [facility] | | | | | | [address] | | | | | | [phone].[employer]. | | | | | | inter[facility] medical centerIsmael MD, | | | | [...] [facility] | [address] | [place], [place] | | | UNIV PTH - INTFC | | [address] | | + + + + + [...] [facility] | | | (YEN NOAH) | [employer] [facility],[address] | | REG UNIV | | | SERUM | [address] [facility],[place] | | PTH - INTFC | | | | [address] | | | | | | [phone]. | | | | | | Ismael [...] B: | | | | | | [employer] | | | | + + + + + + + + | Specimen | + + | Blood - Blood | | (substance) | + + + + + + + | Performing | Address | City/State/Zipcode | Phone Number | | Organization | | | | + + + + + | [facility] | [address] | [place], [place] | | | UNIV PTH - INTFC | | [address] | | + + + + + [...] + | [facility] | [address] | [place] [address] | | | SERVICES, CORE | CLARENCE [...] | + + + + + | [facility] | [address] | [place] [address] | | | SERVICES, LYDIA | CLARENCE [...] | | | | | determined by [facility] | | | | | | Laboratories. See | | | | | | Compliance Statement B: | | | | | | [employer].BigML/CSPerformed | | | | | | by [employer] [facility],[address] | | | | | | [facility],[place] | | | | | | [address] | | | | | | [phone].[employer]. | | | | | | com, [...] [facility] | [address] | [place], [place] | | | UNIV PTH - INTFC | | [address] | | + + + + + [...] [facility] | | | | | | [employer]. See | | | | | | Compliance Statement B: | | | | | | [employer].BigML/CSPerformed | | | | | | by [employer],[address] | | | | | | [address], [facility],[place] | | | | | | [address] | | | | | | [phone].[employer]. | | | | | | [facility], Ismael Willis MD, | | [...] [facility] | [address] | [place], [place] | | | UNIV PTH - INTFC | | [address] | | + + + + + [...] [facility] | [address] | [place] [address] | | | SERVICES, CORE | PARK [...] | | | | | determined by [employer] | | | | | | Laboratories. See | | | | | | Compliance Statement B: | | | | | | [employer].BigML/CSPerformed | | | | | | by [employer],[address] | | | | | | [address] [place], [place] | | | | | | [address] | | | | | | [phone].[employer]. | | | | | | comIsmael [...] [facility] | [address] | [place], [place] | | | UNIV PTH - INTFC | | [address] | | + + + + + [...] [facility] | [address] | [place] [address] | | | SERVICES, CORE | PARK [...] [facility] | [address] | [place] [address] | | | SERVICES, CORE | CLARENCE [...] + | [facility] | [address] | [place] [address] | | | SERVICES, SPECIAL | CLARENCE [...] + | [facility] | [address] | [place] [address] | | | SERVICES, CORE | PARK [...] | | | | | | by [employer] [facility],[address] | | | | | | [place] | | | | | | [address] | | | | | | [phone]. | | | | | | Ismael [...] [facility] | [address] | [place], [place] | | | UNIV PTH - INTFC | | [address] | | + + + + + [...] | | | LABORATORY | | | [place] | | | SERVICES, | | | [...] + | [facility] | [address] | [place] [address] | | | SERVICES, CORE | CLARENCE [...]
--- OUTSIDE RECORDS SUMMARY | ~2020-03-26 | XMS | Encounter Summary ---
Demographics + + + | Address | [address] | | | [place] [address] | + + + | Home Phone [...] [place], [place] | | | | | [address] | | + + + + + | Ellie Vang | ECON | Unknown | | + + + + + Care Team Providers + +------+ + | Care Drop Hammer Pile Driver Operator Name | Role | Phone | [...] | | 2 diabetes | [place], | [place], [place] | | | | | mellitus | [place] [address] | [address] | | | | | without | Phone: | Phone: | | | | | complication | [phone] | [phone] | | | | | (HCC) | Fax: | Fax: | | | | | Procedures | [phone] | [phone] | | | | | SC EST | | | | | | | PATIENT | | | | | | | LEVEL V | | | +--------+--------+ + + + + Encounter Details +--------+---------+ + + + | Date | Type | Department | Care Team | Description | +--------+---------+ + + + | 09/15/ | Office | Cardiology in | Randell Franks, | Hypothyroidism, | | 2020 | Visit | [facility] | [address] | unspecified type | | | | [place] at | [place], [place] | (Primary Dx); Severe | | | | [place] [address] [address] | [address] | Morbid obesity | | | | [address] [facility] | [phone] | (HCC), BMI 88 | | | | [facility] | | | | | | [place], [place] | | | | | | [address] | | | | | | [phone] | | | +--------+---------+ + + + [...] encounter Progress Notes Randell Franks MD - 09/15/2019 4:30 PM PSTFormatting of this note might be different f rom the original. Reason for visit: Ms. Romero returns today to discuss management of her weight and type 2 d iabetes Patient Active Problem List Diagnosis Date Noted Acute DVT (deep venous thrombosis) -- left [...] 4 Overview Note: Lifetime max: 495 lbs S/P RYGB 2018 Post op maxi 270 lbs Phentermine and topiramate started 2018 Iron deficiency anemia due to chronic blood loss 11/11/2015 Priority: 6 Overview Note: Ferritin 18 on 10/2015 Hypoalbuminemia (no proteinuria, need to rule out synthetic, nutrition, loss) 6 Priority: 6 Incarcerated hernia 08/18/2019 Hypothyroidism History of Nilesh-en-Y gastric bypass 03/10/2018 Impaired intestinal absorption 03/10/2018 Chronic diastolic heart failure (HCC) 02/02/2017 Immobility 02/02/2017 Personal history of DVT (deep vein thrombosis) 02/02/2017 History of pulmonary embolism 02/02/2017 Hyperlipidemia 02/02/2017 Ventral hernia without obstruction or gangrene 02/02/2017 Lipoedema 11/28/2016 Candidal intertrigo 11/09/2015 Migraine headache 12/05/2013 Vitamin D deficiency disease 06/16/2013 Intertriginous candidiasis 06/16/2013 HTN (hypertension) 06/16/2013 Anemia 06/16/2013 Decreased mobility 06/16/2013 PCOS (polycystic ovarian syndrome) 06/16/2013 Past Medical History: Diagnosis Date Abdominal pain Allergic rhinitis Anasarca 11/06/2015 Anemia Anxiety Bipolar disorder (HCC) Chronic wound infection of abdomen from 2010 Depression Diverticulitis of colon Dizziness YO (dyspnea on exertion) 11/06/2015 Hemorrhoids Hernia of abdominal wall Hypothyroidism Incisional hernia, incarcerated 2012 Insomnia Irregular periods Kidney stone Leaking of urine Leg sore Lymphedema Morbid obesity (HCC) Morbid obesity with body mass index of 70 and over in adult (HCC) Myalgia and myositis Nausea Neck pain Numbness Osteoarthritis of knee Palpitations Right heart failure (HCC) 11/07/2015 TTE 11/07/2015 The interpretation of images is limited by poor acoustic windows. 2. The le ft ventricular cavity size is normal. 3. The LV ejection fraction is normal. 4. The right ve ntricular size is moderately enlarged. 5. moderately enlarged RV & Moderately reduced RV sys tolic function, The RV TDI s' velocity is 9cm/sec * IVC is non-dilated & with normal resp iratory variation. 6. There are n Severe muscle deconditioning 02/02/2017 Shortness of breath Sleep apnea TIA (transient ischemic attack) due to Bromocriptine Type 2 diabetes mellitus ([facility]) 04/14/2013 Past Surgical History Procedure Laterality Date Tonsillectomy [...] limb 150 cm or less [facility], [facility] Current Outpatient Medications Medication Sig acetaminophen 500 mg oral tablet Take 2 tablets by mouth every six hours. ALPRAZolam 1 mg oral tablet Take 1 mg by mouth three times daily as needed. ascorbic acid (vitamin C) (VITAMIN C) 500 mg oral tablet Take 1 tablet by mouth once da mireya. atenolol 50 mg oral tablet Take 50 mg by mouth once daily at bedtime. CALCIUM CRB&DNA-C4-FTD51-GENIS ORAL Take 2 tablets by mouth two times daily. chlorproMAZINE 25 mg oral tablet Take 50 mg by mouth once daily at bedtime. cyanocobalamin 1,000 mcg oral tablet Take 1,000 mcg by mouth once daily. docusate sodium (STOOL SOFTENER) 100 mg oral capsule Take 200 mg by mouth two times filemon ly. enoxaparin 40 mg/0.4 mL subcutaneous syringe enoxaparin 40 mg/0.4 mL subcutaneous syrin ge ergocalciferol (VITAMIN D2) 50,000 unit oral capsule Take 1 capsule by mouth every . (Patient taking differently: Take 50,000 Units by mouth every Thursday. ) Ferrous Gluconate 324 mg total salt (36 mg elemental iron) oral tablet Take 1 tablet by mouth once daily. HYDROmorphone (DILAUDID) 2 mg oral tablet Take 1 tablet by mouth every six hours as nee ded for severe pain. INTRAUTERINE DEVICE (IUD) UTRN by intrauterine route. lidocaine 5 % topical adhesive patch,medicated Apply 1 patch to skin every twenty-four hours. Apply patch to most painful area; Patch may remain in place for up to 12 hours in any 24-hour period. loperamide 2 mg oral capsule Take 2 mg by mouth four times daily as needed for diarrhea . lurasidone (LATUDA) 20 mg oral tablet Take 40 mg by mouth once daily at bedtime. magnesium oxide 400 mg oral tablet Take 400 mg by mouth two times daily. menthol/zinc oxide (GOLD FARRIS MEDICATED TOP) Apply to infected area two times daily. metoclopramide HCl 10 mg oral tablet Take 10 mg by mouth every six hours as needed for nausea/vomiting. multivitamin oral tablet Take 1 tablet by mouth once daily. PARoxetine 40 mg oral tablet Take 40 mg by mouth once daily at bedtime. PHENTERMINE 37.5 mg oral tablet TAKE 1 TABLET BY MOUTH ONCE DAILY IN THE MORNING BEFORE BREAKFAST polyethylene glycol 17 gram oral powder in packet Mix 1-2 packets and take orally once daily as needed. potassium chloride 20 mEq oral packet Take 40 mEq by mouth two times daily. pramipexole 0.125 mg oral tablet Take 0.25 mg by mouth once daily at bedtime. rizatriptan (MAXALT) 5 mg oral tablet Take 5 mg by mouth as needed. May repeat in 2 crista rs as needed (Max: 30 mg per 24 hour period). spironolactone 50 mg oral tablet Take 50 mg by mouth once daily. thyroid (LIME KILN AND RECAUSTICIZING OPERATOR THYROID) 30 mg oral tablet tab Take 30 mg by mouth once daily at bedtime. torsemide 100 mg oral tablet Take 1 tablet by mouth three times daily. Resume half dose for first week post opertative warfarin 5 mg oral tablet Take 10 mg by mouth once daily. No current facility-administered medications for this visit. Subject: Since the last time I saw Ms. Romero she has undergone elective ventral hernia rep air which has been complicated by hematoma and abscess with persistent drainage. She is in the process of being evaluated for revisional surgery and drainage, and feels poorly at this time. She is otherwise continuing with her vitamin replacements, phentermine and topiramat e with good appetite control, and has no other questions or concerns. Diet: Healthy Exercise: Active ROS: No CP, SOB, palpitations. Objective: BP 110/66 | Pulse 106 | Ht 1.473 m (4' 10") | Wt 125.8 kg (277 lb 6.4 oz) | SpO2 98% | BMI 57.98 kg/m | BSA 2.27 m Waist Circ: Waist Circumference 06/12/2017 RETIRED - Abdominal Girth - Waist Circumference (inches) 68.11 PE: Exam unchanged Labs: Results for DYLAN ROMERO ( ) as of 09/15/2019 17:22 03/01/2019 14:41 SODIUM, PLASMA (LAB) 139 POTASSIUM, PLASMA (LAB) 3.2 (L) POTASSIUM CMNT No Hemo CHLORIDE, PLASMA (LAB) 110 (H) TOTAL CO2, PLASMA (LAB) 20 (L) ANION GAP 9 ANION GAP(ALB CORRECTED) 10 BUN, PLASMA (LAB) 9 CREATININE PLASMA (LAB) 0.82 EGFR - CZECH >60 EGFR NON -CZECH >60 GLUCOSE, PLASMA (LAB) 94 CALCIUM, PLASMA (LAB) 9.1 CALCIUM(ALB CORRECTED) 9.5 AST(SGOT) 19 AST CMNT No Hemo ALT (SGPT) 20 ALK PHOS 170 (H) BILIRUBIN TOTAL 0.5 BILI T CMNT No Hemo TOTAL PROTEIN, PLASMA (LAB) 8.1 ALBUMIN, PLASMA (LAB) 3.5 ZINC SERUM 75.1 METHYLMALONIC ACID 0.20 VITAMIN E (ALPHA NOAH), SERUM 8.2 VITAMIN D 25 HYDROXY 49.9 RETINOL (VITAMIN A) 0.59 RETINYL PALMATATE 0.02 VITAMIN E (YEN NOAH) SERUM 1.0 INTERPRETATION (VIT A) Normal VITAMIN B1, WHOLE BLOOD 162 COPPER SERUM 152.7 PTH, SERUM 176 (H) HOMOCYSTEINE,PLASMA,TOTAL 8.5 Assessment: 1) HFpEF: This is currently being managed well by her Prepress Manager with diuretics and main tenance of her massive weight loss. Further weight loss should continue to improve this even more. 2) T2 Diabetes: Now in remission, will continue to monitor A1c. 3) Morbid obesity: She is having a remarkable weight loss response so far to the combinatio n of bariatric surgery and medical weight loss options. Her weight is now roughly 50% below her lifetime maximum and is weight stable on combination of phentermine and topiramate. Wh ile she is dealing with her complications related to her ventral hernia repair, we will not make any further changes in her medications. 4) Hypothyroidism: It is possible with her weight loss that her current thyroid hormone dos e is excessive and causing her the heat intolerance. Will check TSH and if low then recomme nd she stop the Cytomel. 5) LIpedema: Will need liposuction after her RYGB. 6) Hyperparathyroidism: I will go ahead and recheck. If low then we will need to increase her calcium replacement dose from 2 tablets twice a day probably to 4 tablets twice a day. We can follow her urine calcium excretion and continue to adjust this until goes into the n ormal range. Plan: 1) Continue healthy diet and activity as tolerated 2) Continue management of her heart failure by her Prepress Manager 3) Continue management of her ventral hernia repair by her surgeon 4) Continue phentermine 37.5 mg a day and topiramate 100 mg twice daily 5) Check TSH, PTH, and A1c 6) Follow-up with the above results and recommendations and again in 6 monthsch addie 24 urine calcium and creatinine 20 5:27 PM Lyn Burnett MA - 09/15/2019 4:30 PM PSTAccessed pt s left arm with a butterfly needle. Labs drawn and sent. Pt tolerated procedure well. Site dressed with s terile gauze and tape. documented in this encounter Plan of Treatment +--------+ + + + + | Date | Type | Specialty | Care Team | Description | +--------+ + + + + | 04/04/ | Telephone-S | Surgery | Orquidea Cristobal, | | | 2019 | chesteve | | HEAVY EQUIPMENT RENTAL ASSOCIATE [address] | | | | | | [place], [place] | | | | | | [address] | | | | | | [phone] | | | | | | | | +--------+ + + + + documented as of this encounter Procedures + +--------+ + + + | Procedure Name | Priori | Date/Time | Associated Diagnosis | Comments | | | ty | | | | + +--------+ + + + | SC COLLECTION VENOUS | Routin | 09/15/2019 | Hypothyroidism, | | | BLOOD,VENIPUNCTURE | e | 4:46 PM | unspecified type | | | | | PST | | | + +--------+ + + + | PTH, SERUM | Routin | 09/15/2019 | Hypothyroidism, | Results for this | | | e | 4:33 PM | unspecified type | procedure are in the | | | | PST | | results section. | + +--------+ + + + | TSH | Routin | 09/15/2019 | Hypothyroidism, | Results for this | | | e | 4:33 PM | unspecified type | procedure are in the | | | | PST | | results section. | + +--------+ + + + | HEMOGLOBIN A1C, | Routin | 09/15/2019 | Hypothyroidism, | Results for this | | BLOOD | e | 4:33 PM | unspecified type | procedure are in the | | | | PST | | results section. | + +--------+ + + + documented in this encounter Results PTH, SERUM (09/15/2019 4:33 PM PST) + +---------+ + + + | Component | Value | Ref Range | Performed | Pathologist | | | | | At | Signature | + +---------+ + + + | PTH, SERUM | 113 (H) | 18 - 88 pg/mL | [...] [facility] | [address] | [place] [address] | | | SERVICES, CORE | [address] | | | + + + + + TSH (09/15/2019 4:33 PM PST) + +-------+ + + + | Component | Value | Ref Range | Performed | Pathologist | | | | | At | Signature | + +-------+ + + + | TSH | 2.46 | 0.44 - 4.75 | [facility] | [...] [facility] | [address] | [place] [address] | | | SERVICES, CORE | [address] | | | + + + + + HEMOGLOBIN A1C, BLOOD (09/15/2019 4:33 PM PST) + + + + + + | Component | Value | Ref Range | Performed | Pathologist | | | | | At | Signature | + + + + + + | HEMOGLOBIN | 5.2Comment: Hgb A1C | <5.7 % | [facility] [...] + + + + + + | ESTIMATED | 103Comment: The | mg/dL | [facility] | | | AVERAGE | estimated Average | | LABORATORY | | | GLUCOSE | Glucose (eAG) number is | | SERVICES, | | | | calculated from the | | SPECIAL IMM | | | | result of the A1c test. | | + COAG | | | | The eAG shows what the | | | | | | average blood glucose | | | | | | was over the previous 2 | | | | | | to 3 months. | | | | + + + + + + + + | Specimen | + + | Blood - Blood | | (substance) | + + + + + | Narrative | Performed At | + + + | Alternate forms of testing such as fructosamine should be | [facility] | | considered for monitoring extermination inspector glycemic control in patients with: | [...] | + + + + + | [facility] | [address] | [place] [address] | | | SERVICES, SPECIAL | [address] [address] | | | | IMM + COAG | | | | + + + + + documented in this encounter Visit Diagnoses + + | Diagnosis | + + | Hypothyroidism, unspecified type - Primary | + + | Severe Morbid obesity (HCC), BMI 88 Morbid obesity | + + documented in this encounter
--- OUTSIDE RECORDS SUMMARY | ~2020-03-26 | XMS | Encounter Summary ---
Demographics + + + | Address | [address] | | | [place] [address] | + + + | Home Phone [...] + | Katalina Padilla | ECON | [address] | | | | | [place], [place] | | | | | [address] | | + + + + + | Ellie Vang | ECON | Unknown | | + + + + + Care Team Providers + +------+ + | Care Service Delivery Analyst Name | Role | Phone | + +------+ + | Fadi Goodrich DO | PCP | | + +------+ + Encounter Details +--------+------+ + + + | Date | Type | Department | Care Team | Description | +--------+------+ + + + | 06/16/ | Lab | Laboratory at [facility] | | Morbid obesity with | | 2012 | | [address] | | BMI of 70 and over, | | | | [facility] | | adult (HCC); Vitamin | | | | and Healing, | | D deficiency | | | | [address] | | disease; | | | | [place], [place] | | Intertriginous | | | | [address] | | candidiasis; | | | | [phone] | | Diabetes mellitus | | | [...] | | | | | | obesity ([facility]); PCOS | | | | | | [...] | | 2020 | cheduled | | PLANE RUNNER [address] | | | | | | [place], [place] | | | | | | [address] | | | | | | [phone] | | | | | | | [...] | | | PST | over, adult ([facility]) | results section. | | | | | Vitamin D deficiency | | | | | | disease | | | | | | Intertriginous | | | | | | candidiasis | | | | | | 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| | ([facility]) HTN | | | | | | [...] at | | | | | | [email or web address] Test | | | | | | developed and | | | | | | characteristics | | | | | | determined by | | | | | | [facility]. See | | | | | | Compliance Statement B: | | | | | | [email or web address] | | | | | | by [facility],[address] | | | | | | [address], [facility],[place] | | | | | | [address] | | | | | [email or web address]. | | | | | | Mt guillory, | | | | | | Emanuel CARVAJAL. Director | | | | + + [...] at | | | | | | [employer] Test | | | | | | developed and | | | | | | characteristics | | | | | | determined by | | | | | | [facility]. See | | | | | | Compliance Statement B: | | | | | | [employer]/CS | | | | + + + + + + + + | Specimen | + + | Blood - Blood | + + + + + + + | Performing | Address | City/State/Zipcode | Phone Number | | Organization | | | | + + + + + | [facility] | [address] | [place], [place] | | | [facility] | | [address] | | + + + + + [...]
--- OUTSIDE RECORDS SUMMARY | ~2020-03-26 | XMS | Encounter Summary ---
Demographics + + + | Address | [address] | | | [place] [address] | + + + | Home Phone [...] + + | Author | [facility] | | | and Jeffana | + + + | Organization | [facility] | | | [...] Team Providers + +------+ + | Care Fagot Heater Name | Role | Phone | + +------+ + PCP | Unavailable | + +------+ + Encounter Details +--------+ + + + + | Date | Type | Department | Care Team | Description | +--------+ + + + + | 12/02/ | Orders Only | [facility] | Conversion | | | 2017 | | NEPHROLOGY [place] | Transaction, | | | | | [address] | Provider Unknown | | | | | [address] [place], [place] | | | | | | [address] | (Fax) | | | | | [phone] | | | +--------+ + + + [...] | | | | | | [place] [address] | | | | | | [phone] | | | | | | | | +--------+ + + + + | 04/18/ | Procedure | Neurology | Camille De La Paz, | | | 2019 | visit | | MD Saum[address] MOE | | | | | | [address] | | | | | | [place] [address] | | | | | | [phone] | | | | | | | [...]
--- OUTSIDE RECORDS SUMMARY | ~2020-03-26 | XMS | Encounter Summary ---
Demographics + + + | Address | [address] | | | [place] [address] | + + + | Home Phone [...] + | Katalina Padilla | ECON | [address] | | | | | [place], [place] | | | | | [address] | | + + + + + | Ellie Vang | ECON | Unknown | | + + + + + Care Team Providers + +------+ + | Care Petroleum Geology Faculty Member Name | Role | Phone | + +------+ + PCP | Unavailable | + +------+ + Encounter Details +--------+ + + + + | Date | Type | Department | Care Team | Description | +--------+ + + + + | 03/25/ | Results | Neurosurgery [address] | [address]aved [address]ender, | | | 1991 | Only | [address] | ,PhD | | | | | Rd Mailcode:[id number] | | | | | | [facility] | | | | | | [place], [place] | | | | | | [address] | | | | | | [phone] | | | +--------+ + + + [...] | | 2019 | sherrill | | DRILLING FOREMAN [address] | | | | | | [place], [place] | | | | | | [address] | | | | | | [phone] | | | | | | | [...] | | | | | | | [place], [place] | | | | | | [address] | | | | | | DrRenee | | | | | | Nilda [...] | | | | artery. A 5.5 Albanian | | | | | | Ozzy [...] | | + +---------+ + + | [facility] DEPARTMENT OF | | | | | RADIOLOGY | | | | + +---------+ + + documented in this encounter Visit Diagnoses Not on filedocumented in this encounter
--- OUTSIDE RECORDS SUMMARY | ~2020-03-26 | XMS | Encounter Summary ---
Demographics + + + | Address | [address] | | | [place] [address] | + + + | Home Phone [...] + | Organization | [facility] | [...] Providers + +------+ + | Care Environmental Health Officer Name | Role | Phone | [...] + + | 01/11/ | Telephone | [facility] | Camille De La Paz, | Referral | | 2020 | | NEUROLOGY [address] | MD [address] | | | | | [address] | [address] [facility] [address] | | | | | [place], [place] | [place] [address] | | | | | [address] | [phone] | | | | | [phone] | | | +--------+ + + + [...] transfer the call to a romeo ellis supervisor mold construction was caller made aware that if at [...] | | | | | [place] [address] | | | | | | [phone] | | | | | | | | +--------+ + + + + | 04/18/ | Procedure | Neurology | Camille De La Paz, | | | 2019 | visit | | MD [address] | | | | | | [address] | | | | | | [place] [address] | | | | | | [phone] | | | | | | | | +--------+ + + + + documented as of this encounter Visit Diagnoses Not on filedocumented in this encounter"
--- OUTSIDE RECORDS SUMMARY | ~2020-03-26 | XMS | Encounter Summary ---
Demographics + + + | Address | [address] | | | [place] [address] | + + + | Home Phone [...] + | Katalina Padilla | ECON | [address] | | | | | [place], [place] | | | | | [address] | | + + + + + | Ellie Vang | ECON | Unknown | | + + + + + Care Team Providers + +------+ + | Care Alarm Operator Name | Role | Phone | + +------+ + | Kenyatta Cardenas MD | PCP | | + +------+ + Encounter Details +--------+ + + + + | Date | Type | Department | Care Team | Description | +--------+ + + + + | 01/26/ | Abstract | Cardiology | Branden Gutiérrez MD | | | 2019 | | Preventive at [facility] | [address] | | | | | [address] | [place], [place] | | | | | [facility] | [address] | | | | | and [place], | [phone] | | | | | [address] | | | | | | [place], [place] | | | | | | [address] | | | | | | [phone] | | | +--------+ + + + [...] | | 2019 | cheduled | | MATERIAL MIXER [address] | | | | | | [place] | | | | | | [address] | | | | | | [phone] | | | | | | | | +--------+ + + + + documented as of this encounter Visit Diagnoses Not on filedocumented in this encounter"
--- OUTSIDE RECORDS SUMMARY | ~2020-03-26 | XMS | Encounter Summary ---
Demographics + + + | Address | [address] | | | [place] [address] | + + + | Home Phone [...] + | Katalina Padilla | ECON | [address] | | | | | [place], [place] | | | | | [address] | | + + + + + | Ellie Vang | ECON | Unknown | | + + + + + Care Team Providers + +------+ + | Care Core Laying Machine Operator Name | Role | Phone | + +------+ + | Jorje Hill MD | PCP | | + +------+ + Encounter Details +--------+ + + + + | Date | Type | Department | Care Team | Description | +--------+ + + + + | 03/01/ | Procedure | [id number] | | | | 2018 | Pass | [address] | | | | | | [facility] | | | | | | [facility] Admitting | | | | | | Desk Located on the | | | | | | 9th floor | | | | | | [place], [place] | | | | | | [address] | | | +--------+ + + + [...] | | 2019 | sherrill | | LATENT PRINT EXAMINER [address] | | | | | | [place], [place] | | | | | | [address] | | | | | | [phone] | | | | | | | | +--------+ + + + + documented as of this encounter Visit Diagnoses Not on filedocumented in this encounter"
--- OUTSIDE RECORDS SUMMARY | ~2020-03-26 | XMS | Encounter Summary ---
Demographics + + + | Address | [address] | | | [place] [address] | + + + | Home Phone [...] [place], [place] | | | | | [address] | | + + + + + | Ellie Vang | ECON | Unknown | | + + + + + Care Team Providers + +------+ + | Care Chef Instructor Name | Role | Phone | [...] | | | | | | [address] [place], [place] | | | | | | [address] | | | | | | [phone] | | | +--------+ + + + [...] | | 2019 | sherrill | | WARP WORKER [address] | | | | | | [place], [place] | | | | | | [address] | | | | | | [phone] | | | | | | | | +--------+ + + + + documented as of this encounter Visit Diagnoses Not on filedocumented in this encounter"
--- OUTSIDE RECORDS SUMMARY | ~2020-03-26 | XMS | Encounter Summary ---
Demographics + + + | Address | [address] | | | [place] [address] | + + + | Home Phone | | + + + | Preferred Language | Unknown | + + + | Marital Status | | + + + | Rastafarian Affiliation | Unknown | + + + | Race | White | + + + | Ethnic Group | Not or | + + + Author + + + | Author | [facility] | | | and Jeffana | + + + | Organization | [facility] | | [...] Providers + +------+ + | Care Technical Artist Name | Role | Phone | + +------+ + | Jorje Hill | PCP | | + +------+ + Reason for Visit + +--------+ + | Reason | Onset | Comments | | | Date | | + +--------+ + | Medication Refill | 08/17/ | | | | 2020 | | + +--------+ + Encounter Details +--------+--------+ + + + | Date | Type | Department | Care Team | Description | +--------+--------+ + + + | 08/17/ | Refill | [facility] | Sulema Altamirano | Medication Refill | | 2019 | | CARDIOLOGY SAIMA | [address] | | | | | [address] | [address] | | | | | [address] | [place] [address] | | | | | [place] | [phone] | | | | | [address] | | | | | | [phone] | | | +--------+--------+ + + + [...] | | | | | | [place] [address] | | | | | | [phone] | | | | | | | | +--------+ + + + + | 04/18/ | Procedure | Neurology | Camille De La Paz, | | | 2019 | visit | | MD Saumya MOE | | | | | | [address] | | | | | | [place] [address] | | | | | | [phone] | | | | | | | | +--------+ + + + + documented as of this encounter Visit Diagnoses Not on filedocumented in this encounter"
--- OUTSIDE RECORDS SUMMARY | ~2020-03-26 | XMS | Encounter Summary ---
Demographics + + + | Address | [address] | | | [place] [address] | + + + | Home Phone | | + + + | Preferred Language | Unknown | + + + | Marital Status | | + + + | Caodaism Affiliation | Unknown | + + + [...] Providers + +------+ + | Care Automatic Grinder Operator Name | Role | Phone | + +------+ + PCP | Unavailable | + +------+ + Encounter Details +--------+ + + + + | Date | Type | Department | Care Team | Description | +--------+ + + + + | 08/31/ | Hospital | [facility] | Erich Wells | | | 2003 | Encounter | MED CTR SLEEP | MD Michael [address] | | | | | [place] [address] | [address] [facility] | | | | | [place], [place] | [place] [address] | | | | | [address] | [phone] | | | | | [phone] | | | +--------+ + + + [...] [address] | | | | | | [place] [address] | | | | | | [phone] | | | | | | | | +--------+ + + + + | 04/18/ | Procedure | Neurology | Camille De La Paz, | | | 2019 | visit | | MD Saumya MOE | | | | | | [address] | | | | | | [place] [address] | | | | | | [phone] | | | | | | | | +--------+ + + + + documented as of this encounter Visit Diagnoses Not on filedocumented in this encounter"
--- OUTSIDE RECORDS SUMMARY | ~2020-03-26 | XMS | Encounter Summary ---
Demographics + + + | Address | [address] | | | [place] [address] | + + + | Home Phone | | + + + | Preferred Language | Unknown | + + + | Marital Status | | + + + | Evangelical Affiliation | Unknown | + + + | Race | White | + + + | Ethnic Group | Not or | + + + Author + + + | Author | [facility] | | | and Jeffana | + + + | Organization | [facility] | | | and [...] Team Providers + +------+ + | Care Silk Screen Repairer Name | Role | Phone | + +------+ + PCP | Unavailable | + +------+ + Encounter Details +--------+ + + + + | Date | Type | Department | Care Team | Description | +--------+ + + + + | 07/24/ | Orders Only | [facility] | Sulema Altamirano | | | 2017 | | CONVERSION [address] | [address] | | | | | [address] | [address] | | | | | [place], [place] | [place] [address] | | | | | [address] | [phone] | | | | | [phone] | | | +--------+ + + + [...] [address] | | | | | | [place] [address] | | | | | | [phone] | | | | | | | | +--------+ + + + + | 04/18/ | Procedure | Neurology | Camille De La Paz, | | | 2019 | visit | | MD Saumya MOE | | | | | | [address] | | | | | | [place] [address] | | | | | | [phone] | | | | | | | [...] 5.71 | | | RAP: 5 mmHg Overlock Collar Setter: JESSICA Authenticated by: BENJY | | | MD NHI Report Date/Time: 02-16-2017 18:47:15 | | + + + + + | Procedure Note | + + | David Burgess Conversion - 03/17/2019 6:38 PM PDT Patient Name: Sherrell Cristina | | : 1975 Performing Physician: BENJY HANKINS, | | INDICATIONS R | | V dysfunction, edema [...] cmLVPWd: 0.81 | | cmLVOT Area: 3.98 ih6MDZM Diam: 2.25 cm%FS: 32.91 %EF(Teich): 61.28 | [...] (A-L): 20.64 ml/m2LAAs A2C: 14.37 | | wy3KUWDQ A-L A2C: 40.74 mlLALs A2C: 4.30 cmLAAs A4C: 16.09 sq1QTXBO A-L A4C: | | 43.02 mlLALs A4C: 5.10 cmRAAs: 13.58 rk6HVWRZ A-L: 33.08 mlRAESV MOD: 32.14 | | mlRALs: 4.73 cmTAPSE: 2.16 cmAV maxP.33 mmHgAV meanP.31 mmHgAV Vmax: | | 1.60 m/Genesis Vmean: 1.08 m/Genesis VTI: 25.19 cmAVA Vmax: 2.75 cm2AVA (VTI): 3.06 | | wf6DVRK Vmax: 0.00 cm2/m2AVAI (VTI): 0.00 cm2/m2LVOT maxP.93 mmHgLVOT meanPG: | | 2.50 mmHgLVSI Dopp: 34.92 ml/m2LVSV Dopp: 77.18 mlLVOT Vmax: 1.11 m/sLVOT Vmean: | | 0.73 m/sLVOT VTI: 19.34 cmMV A Jeffrey: 0.81 m/sMV DecT: 249.81 msMV E Jeffrey: 0.82 | | m/sMV E/A Ratio: 1.01MV PHT: 72.44 msMVA By PHT: 3.03 vh5Ijigcp e': 0.07 | | m/sSeptal E/e': 11.80Lateral e': 0.14 m/sLateral E/e': 5.71RAP: 5 mmHg | | Overlock Collar Setter: DHAuthenticated by: Shirley SILVER Date/Time: 02-16-2017 18:47:15 [...] | |RAP: 5 mmHg | | | |Overlock Collar Setter: DH | |Authenticated by: BENJY HANKINS MD | [...]
--- OUTSIDE RECORDS SUMMARY | ~2020-03-26 | XMS | Encounter Summary ---
Demographics + + + | Address | [address] | | | [place] [address] | + + + | Home Phone [...] + | Katalina Padilla | ECON | [address] | | | | | [place], [place] | | | | | [address] | | + + + + + | Ellie Vang | ECON | Unknown | | + + + + + Care Team Providers + +------+ + | Care Client Account Manager Name | Role | Phone [...] Encounter | Procedural Unit | MD Barb [address] | | | | | ([facility]) at [facility] [address] [place], [place] | | | | | [address] | [address] | | | | | Mailcode: [place] | [phone] | | | | | for Health and | | | | | | Healing, [address] | | | | | | [place], [place] | | | | | | [address] | | | | | | [phone] | | | +--------+ + + + [...] Discharge Instructions Instructions Keerthi Bernard RN - [facility]07[facility]2019[facility] Instructions after EGD (Upper Endos copy) [...] hours or on weekends and holiday Hospital Building Cleaner toll free [phone]. [phone] and have the GI doctor consulting nurse paged. The provider who performed your procedure: [...] | | 0 | | | | [id number]-GEN | mouth two times | | | [...] from the original. PRE PROCEDURE NOTE: MR# [id number] Subjective: Elzbieta Cristina is a 44 y.o. [...] | | 2020 | cheduled | | SHOE REPAIR COBBLER [address] | | | | | | [place], [place] | | | | | | [address] | | | | | | [phone] | | | | | | | [...] + | MRN: | [facility] | | [id number] Date: 04/07/2019Patient Name: Elzbieta Curtis #: | ENDOSCOPY | | [id number] of : 1975CSN: [id number] Type: | | | AmbulatoryRoom: Endo 5Procedure: Upper GI | | | endoscopyIndications: Generalized abdominal pain, Nausea | | | with vomitingProviders: TAL LUND MD | | | (Doctor), KEERTHI BERNARD RN (Nurse), | | | EREN SLATER (Agricultural Agent)Referring MD: SYLVIA Kilpatrick | | | RASTA SAMPSONCNPRequestdonya Provider: Medicines: | | | Midazolam 8 [...] | | | The Olympus [id number] Endoscope #[id number] | | | was introduced through the [...] 11:16 | | | | | Starting Jasmnye 04/07/19 at 1116, | | AM PDT | | | | | Until Jasmyne 04/07/19 at 1116 | | | | | | + +-------+ +--------+---+---+ +---+---+ | | | +---+---+ + +-------+ +--------+---+---+ | fentaNYL (SUBLIMAZE) injection | Given | 04/07/20 | 50 mcg | | | | intravenous, INTRAPROCEDURE PRN, | | 19 11:18 | | | | | Starting [facility] 04/07/19 at 1118, | | AM PDT | | | | | Until [facility] 04/07/19 at 1118 | | | | | | + +-------+ +--------+---+---+ +---+---+ | | | +---+---+ + +-------+ +-------+---+---+ | lidocaine viscous (XYLOCAINE | Given | 04/07/20 | 15 mL | | | | VISCOUS) 2 % mucosal solution | | 19 12:35 | | | | | Mouth/Throat, INTRAPROCEDURE PRN, | | PM PDT | | | | | Starting [facility] 04/07/19 at 1104, | | | [...]
--- OUTSIDE RECORDS SUMMARY | ~2020-03-26 | XMS | Encounter Summary ---
Demographics + + + | Address | [address] | | | [place] [address] | + + + | Home Phone [...] [place], [place] | | | | | [address] | | + + + + + | Ellie Vang | ECON | Unknown | | + + + + + Care Team Providers + +------+ + | Care Primary Clinician Name | Role | Phone | + +------+ + | Fadi Goodrich DO | PCP | | + +------+ + Encounter Details +--------+ + + + + | Date | Type | Department | Care Team | Description | +--------+ + + + + | 07/06/ | Abstract | Digestive Health | Shereen Georges, | | | 2012 | | Center at [facility] [address] | ACNP [address] | | | | | [address] | Ave [place], [place] | | | | | for Health and | [address] | | | | | [facility] | | | | | | [place], [place] | | | | | | [address] | | | | | | | [...] | | 2019 | sherrill | | CANAL EQUIPMENT MECHANIC [address] | | | | | | [place], [place] | | | | | | [address] | | | | | | [phone] | | | | | | | | +--------+ + + + + documented as of this encounter Visit Diagnoses Not on filedocumented in this encounter"
--- OUTSIDE RECORDS SUMMARY | ~2020-03-26 | XMS | Encounter Summary ---
Demographics + + + | Address | [address] | | | [place] [address] | + + + | Home Phone [...] [place], [place] | | | | | [address] | | + + + + + | Ellie Vang | ECON | Unknown | | + + + + + Care Team Providers + +------+ + | Care Single Fold Machine Operator Name | Role | Phone | + +------+ + | Fadi Goodrich DO | PCP | | + +------+ + Encounter Details +--------+ + + + + | Date | Type | Department | Care Team | Description | +--------+ + + + + | 10/19/ | Abstract | Digestive Health | Clinic, Surgery | | | 2017 | | Newborn at [facility] [address] | | | | | | [facility] | | | | | | for Health and | | | | | | [facility] [address] | | | | | | [place], [place] | | | | | | [address] | | | | | | [phone] | | | +--------+ + + + [...] | | 2019 | sherrill | | DOWEL MACHINE OPERATOR [address] | | | | | | [place], [place] | | | | | | [address] | | | | | | [phone] | | | | | | | | +--------+ + + + + documented as of this encounter Visit Diagnoses Not on filedocumented in this encounter"
--- OUTSIDE RECORDS SUMMARY | ~2020-03-26 | XMS | Encounter Summary ---
Demographics + + + | Address | [address] | | | [place] [address] | + + + | Home Phone | | + + + | Preferred Language | Unknown | + + + | Marital Status | | + + + | Protestant Affiliation | Unknown | + + + | Race | White | + + + | Ethnic Group | Not or | + + + Author + + + | Author | [facility] | | | and Jeffana | + + + | Organization | [facility] | | | [...] Providers + +------+ + | Care Development Intern Name | Role | Phone | + [...] [address] | | | | | [place], [place] | [place] [address] | | | | | [address] | [phone] | | | | | [phone] | | | +--------+ + + + [...] | | | | | [place] [address] | | | | | | [phone] | | | | | | | | +--------+ + + + + | 04/18/ | Procedure | Neurology | Camille De La Paz, | | | 2019 | visit | | [address] | | | | | | [place] [address] | | | | | | [phone] | | | | | | | [...] 0.61 m/s | | | MV Dec Paulding: 2.43 m/s2 MV DecT: 247.51 ms MV E Jeffrey: 0.60 | | | m/s MV E/A Ratio: 0.98 MV PHT: 71.78 ms MVA By PHT: 3.06 | | | cm2 Septal e': 0.06 m/s Septal E/e': 9.54 Lateral e': 0.10 | | | m/s Lateral E/e': 5.84 RAP: 5 mmHg RV s': 0.11 m/s | | | Residential Green Building Designer: JESSICA Authenticated by: Darryl Merrill Report Date/Time: [...] cmLVIDd: 4.70 cmLVPWd: 0.79 cmLVOT Area: 3.58 lh3VBLB Diam: 2.13 cm%FS: 39.25 | | %EF(Teich): [...] | Index (A-L): 14.72 ml/m2LAAs A2C: 10.03 [id number] A-L A2C: 22.69 mlLALs A2C: 3.76 | | cmLAAs A4C: 13.41 wm6GORIZ A-L A4C: 36.80 mlLALs A4C: 4.14 cmRAAs: 11.18 | | in5JFQCK A-L: 22.84 mlRAESV MOD: 22.10 mlRALs: 4.64 cmTAPSE: 2.04 cmAV maxPG: | | 6.55 mmHgAV meanP.52 mmHgAV Vmax: 1.27 m/Genesis Vmean: 0.88 m/Genesis VTI: 26.50 | | cmAVA Vmax: 2.49 cm2AVA (VTI): 2.39 il7VAVD Vmax: 0.00 cm2/m2AVAI (VTI): 0.00 | | cm2/m2LVOT maxP.17 mmHgLVOT meanP.82 mmHgLVSI Dopp: 30.83 ml/m2LVSV Dopp: | | 63.52 mlLVOT Vmax: 0.89 m/sLVOT Vmean: 0.65 m/sLVOT VTI: 17.71 cmMV A Jeffrey: | | 0.61 m/sMV Dec [place]: 2.43 m/s2MV DecT: 247.51 msMV E Jeffrey: 0.60 m/sMV E/A Ratio: | | 0.98MV PHT: 71.78 msMVA By PHT: 3.06 vq9Ebhjml e': 0.06 m/sSeptal E/e': | | 9.54Lateral e': 0.10 m/sLateral E/e': 5.84RAP: 5 mmHgRV s': 0.11 m/s | | Residential Green Building Designer: HONEYuthenticated by: Darryl Hess Date/Time: 02-22-2019 20:8:36 [...] A Jeffrey: 0.61 m/s | |MV Dec [place]: 2.43 m/s2 | |MV DecT: 247.51 ms | |MV E Jeffrey: 0.60 m/s | |MV E/A Ratio: 0.98 | |MV PHT: 71.78 ms | |MVA By PHT: 3.06 cm2 | |Septal e': 0.06 m/s | |Septal E/e': 9.54 | |Lateral e': 0.10 m/s | |Lateral E/e': 5.84 | |RAP: 5 mmHg | |RV s': 0.11 m/s | | | |Residential Green Building Designer: JESSICA | |Authenticated by: Darryl Merrill | [...]
--- OUTSIDE RECORDS SUMMARY | ~2020-03-26 | XMS | Encounter Summary ---
Demographics + + + | Address | [address] | | | [place] [address] | + + + | Home Phone [...] + | Katalina Padilla | ECON | [address] | | | | | [place], [place] | | | | | [address] | | + + + + + | Ellie Vang | ECON | Unknown | | + + + + + Care Team Providers + +------+ + | Care Legal Clerk Name | Role | Phone | [...] + | 03/03/ | Documentati | [facility] at [facility] | Lab, Gi Procedure | Medical Records | | 2019 | on | [facility] [address] | | Review | | | | [address] [facility] | | | | | | Health and Healing, | | | | | | Building [address] | | | | | | [place], [place] | | | | | | [address] | | | | | | [phone] | | | +--------+ + + + [...] this encounter Miscellaneous Notes Telephone Encounter - Sheree Basilio MA - 03/18/2019 12:02 PM PDT From: Chele Choe Jr., MD Sent: 03/18/2019 11:59 AM To: Sheree Basilio MA Agree with the recommendations Chele elephone Encounter - Sheree Basilio MA - 03/18/2019 11:08 AM PDTReferral not routed as urgent- scheduling inform ation provided by RMD. Pt with BMI >50. AFTER MEDICAL REVIEW Is this a complex procedure? No To be scheduled: - EGD (Upper Endoscopy); 20 minute . When to be scheduled: To be scheduled with: 1 to 2 weeks Any Provider Location: [facility] 2 Type of Sedation: Moderate Will confirm above is cleared with MD given all providers vrs Bariatric Electronically sign ed by Sheree Basilio MA at 03/18/2019 11:09 AM PDTTelephone Encounter - Ariella Sr - 03/03/2019 3:13 PM PDT Elzbieta Cristina [id number] REFERRAL FOR REVIEW: Reviewing Provider: Sheree Basilio MA [x]Internal Referral [] External Referral [] Images in IMPAX [] Color Reports Attached Referring Diagnosis/Comments: Z98.84 (ICD-10-CM) - V45.86 (ICD-9-CM) - History of Nilesh-en-Y gastric bypass, R11.2 (ICD-10-CM) - 787.01 (ICD-9-CM) - Nausea and vomiting, intractability of vomiting not specified, unspecified vomiting type, R19.7 (ICD-10-CM) - 787.91 (ICD-9-CM) - Diarrhea, unspecified type Per my understanding, if referral is not to be scheduled with bariatric MD, it needs to go to review. Let me know if I should have just flipped this. Thanks! Is patient on an anticoagulant? NO. Is patient on an anti-platelet agent? No. Attending Provider (if order being placed by Resident or Fellow): Dannie Wt Readings from Last 1 Encounters: 03/01/19 : 122.9 kg (271 lb) AFTER MEDICAL REVIEW Is this a complex procedure? No To be scheduled: - EGD (Upper Endoscopy); 20 minute . When to be scheduled: To be scheduled with: 1 to 2 weeks Any Provider Location: [facility] 2 Type of Sedation: Moderate [] emergent [x]urgent []routine []Consultation []Colonoscopy []Colonoscopy w/ EMR []Flexible Sigmoidoscopy [x]EGD (Upper Endoscopy) []EGD w/ Dilation []EGD w/ EMR []Ileoscopy []Pouchoscopy []Endoscopy of Holman Pouch [] Sm Bowel Enteroscopy [] Double Balloon Enteroscopy []Capsule Endoscopy: []Small Bowel []ESO []EUS []ERCP []24HR ph Monitor [] ON PPI (will be done OFF PPI unless checked) []48HR ph Jana tor [] ON PPI (will be done OFF PPI unless checked) []Esophageal Manometry []Anorectal Manometry []Smart Pill []PEG Tube Placement []PEG Tube REPLACEMENT []Other: Electronic Data: Last 1 Encounter BMI Readings: Date BMI 03/01/2019 54.74 kg/m2 Patient Active Problem List Diagnosis Hernia Severe Morbid obesity (HCC), BMI 88 Type 2 diabetes mellitus (HCC) AMARA (obstructive sleep apnea) Edema and weight gain Vitamin D deficiency disease Intertriginous candidiasis HTN (hypertension) Skin breakdown Anemia Decreased mobility Hypoventilation associated with obesity (HCC) PCOS (polycystic ovarian syndrome) Ventral hernia Migraine headache Abdominal pain Hypothyroidism Diabetes mellitus with insulin therapy (HCC) YO (dyspnea on exertion) Anasarca Right heart failure (HCC) Acute DVT (deep venous thrombosis) -- left [...] (deep vein thrombosis) History of pulmonary embolism Benign essential HTN Diabetes mellitus type 2 without retinopathy (HCC) Hyperlipidemia Ventral hernia without obstruction or gangrene History of Nilesh-en-Y gastric bypass Impaired intestinal absorption Current Outpatient Medications Medication Sig ascorbic acid (vitamin C) (VITAMIN C) 500 mg oral tablet Take 1 tablet by mouth once da mireya. aspirin EC 81 mg oral tablet,delayed release (DR/EC) Take 81 mg by mouth once daily. atenolol 25 mg oral tablet Take 50 mg by mouth once daily. BELBUCA 600 mcg buccal film CALCIUM CRB&SLL-N0-ZDC06-GENIS ORAL Take 2 tablets by mouth two [...] Take 400 mg by mouth once daily. mirtazapine 15 mg oral tablet Take 15 mg by mouth once daily in the evening. nystatin 100,000 unit/gram topical powder Apply to affected area two times daily. Apply to candidal lesions until lesions have healed. omeprazole 20 mg oral capsule,delayed release(DR/EC) Take [...] [Bromocriptine] Unknown Blood clots Penicillin Hives Past Medical History: Diagnosis Date Abdominal [...] Dr. Andie Brian Incisional hernia repair 03/01/2015 [facility]/ Dr. Cantu. Primary fascial closure and scar excision Lap gastric byp, and nilesh-en-y gastroenterostomy w/ nilesh limb 150 cm or less [facility] Lab Results Component Value Date WBC 11.68 03/01/2019 HB 14.5 03/01/2019 HCT 44.1 03/01/2019 PLT 328 03/01/2019 MCV 88.6 03/01/2019 RDW 43.4 03/01/2019 INRPT 1.05 03/01/2019 FERRITIN 48 03/01/2019 B12 1,481 03/01/2019 IRON 63 03/01/2019 NA 139 03/01/2019 K 3.2 03/01/2019 CL 110 03/01/2019 BICARB 20 03/01/2019 BUN 9 03/01/2019 CR 0.82 03/01/2019 GLU 94 03/01/2019 CA 9.1 03/01/2019 AST 19 03/01/2019 ALT 20 03/01/2019 AP 170 03/01/2019 TBILI 0.5 03/01/2019 TP 8.1 03/01/2019 ALB 3.5 03/01/2019 documented in this enco unter Plan of Treatment +--------+ + + + + | Date | Type | Specialty | Care Team | Description | +--------+ + + + + | 04/04/ | Telephone-S | Surgery | Orquidea Cristobal, | | | 2019 | cheduled | | PL SQL PROGRAMMER [address] | | | | | | [place], [place] | | | | | | [address] | | | | | | [phone] | | | | | | | | +--------+ + + + + documented as of this encounter Visit Diagnoses Not on filedocumented in this encounter"
--- OUTSIDE RECORDS SUMMARY | ~2020-03-26 | XMS | Encounter Summary ---
Demographics + + + | Address | [address] | | | [place] [address] | + + + | Home Phone [...] + | Katalina Padilla | ECON | [address] | | | | | [place], [place] | | | | | [address] | | + + + + + | Ellie Vang | ECON | Unknown | | + + + + + Care Team Providers + +------+ + | Care Eyeglass Frames Inspector Name | Role | Phone | [...] + + + + | 08/18/ | Hospital | [facility] [address] | Jackie Asher MD | | | 2020 - | Encounter | [address] | [address] | | | | | [place], [place] | [address] | | | 08/23/ | | [address] | [place], [place] | | | 2019 | | [phone] | [address] | | | | | | [phone] | | | | | | | | | | | | Nay Joe, | | | | | | [address] | | | | | | [address] | | | | | | [place], [place] | | | | | | [address] | | | | | | [phone] | | | | | | | | | | | | Jones Woo, | | | | | | [address] [facility] | | | | | | [address] | | | | | | [place], [place] | | | | | | [address] | | | | | | [phone] | | | | | | | [...] as of this encounter Discharge Summaries Jones Woo MD - 08/23/2019 6:34 AM PST INPATIENT PHYSICIAN DISCHARGE SUMMARY Author: Kelin Hairston MD Attending Physician: Jones Woo MD PCP: Kenyatta Cardenas MD Admission Date: 08/18/2019 Discharge Date: 23 Aug 2019 Diagnosis: Primary Diagnosis: Incarcerated incisional ventral hernia Secondary Diagnosis: 1. History of DVT/TIA/stroke 2. Hypertension 3. Diabetes Procedures: Primary ventral incisional hernia repair Hospital Course: Dylan Romero is a 44 year old female with hypertension, diabetes, congestive heart fail ure, hypothyroidism, obesity who underwent laparoscopic antecolic nish-en-y gastric bypass i 2017, obstructive sleep apnea, bipolar disorder, depression, anxiety, [...] the gallo. She was transitioned off her MEDICARE CONTACT SPECIALIST on POD1. She di d have difficulty [...] condition. She will follow up at the [facility] with Dr. Woo in 2- 3 weeks. She will also [...] by mouth once daily at bedtime. CALCIUM [id number]-GENIS ORAL Take 2 tablets by mouth two [...] daily. ASK your doctor about these medications STIPPLER THYROID 30 mg Tab tab Generic drug: [...] normal, but be sure to notify Dr. Woo's office if there is any concern for [...] the prescribed narcotic-opioid (e.g. oxycodone, hydrocodone, Vicodin, [place], Percocet, Dilaudid) as needed. However, Vicodin/[place] and Percocet contain acetam inophen in the [...] Narcotic-opioid pain medications (e.g. oxycodone, hydrocodone, Vicodin, [place], Percocet, Di laudid) can be constipating, therefore you should take a stool softener on the same day as s tarting your narcotic pain medicine. Options include: Milk of Magnesia: 2 Tablespoons Twice daily Colace (=Docusate): 1 pill Twice daily Miralax: 1 Tablespoon (17 grams) daily (check bottle for mixing instructions) While these are some recommendations, any xgll-zbg-[id number] stool softener should work, and generics are [...] Physician: Kelin Hairston MD Attending Physician: Jones Woo MD I performed a history and physical examination of the patient and discussed her management with the resident. I reviewed the resident s note and agree with the documented findings and plan of care. JONES WOO MD [facility] [address] [place] [phone] documented in this encounter Discharge Instructions Discharge [...] hours by calling the surgery office at [phone]. After hours, weekends and holidays, you may call the hospital slitter operator at [phone] and have the addiction specialist Green Team for general surgery paged. Discharge Instr [...] hypo thyroidism, obesity who underwent laparoscopic antecolic nish-en-y gastric bypass in 2018, o bstructive sleep [...] the gallo. She was transitioned off her MEDICARE CONTACT SPECIALIST on POD1. She did have dif ficulty with pain control after however it was better controlled on oral hydromorphone. She was tolerating a regular diet without nausea or vomiting, able to void after her Kilgore remov al, and was passing flatus. She was started on therapeutic Lovenox on POD3 and transitioned to warfarin the evening of POD3. Physical therapy evaluated the patient and recommended home with assist as needed. She was ready for discharge on POD and was discharged in good con dition. She will follow up at the [facility] with Dr. Woo in weeks. She will also follow up [...] normal, but be sure to notify Dr. Woo's office if there is any concern for [...] the prescribed narcotic-opioid (e.g. oxycodone, hydrocodone, Vicodin, [place], Percocet, Dilaudid) as needed. However, Vicodin/[place]attle and Percocet contain acetam inophen in the [...] Narcotic-opioid pain medications (e.g. oxycodone, hydrocodone, Vicodin, [place], Percocet, Di laudid) can be constipating, therefore you should take a stool softener on the same day as s tarting your narcotic pain medicine. Options include: Milk of Magnesia: 2 Tablespoons Twice daily Colace (=Docusate): 1 pill Twice daily Miralax: 1 Tablespoon (17 grams) daily (check bottle for mixing instructions) While these are some recommendations, any fhxv-rkn-lmryorc stool softener should work, and generics are fine to use. Increase your fluids, especially your intake of water Increase your activity. Walk frequently. ANTICOAGULATION: We recommend you make an appointment to be seen in your local anticoagulation clinic on Thu08/25/19 to recheck your INR and for ongoing management of your warfarin. FOLLOW-UP: Please call Dr. Woo's office ([phone]) to schedule a follow-up appointment for 2-3 [...] mg by mouth | | 0 | 06/12/ | | | oral tablet | once daily at | | | 17 | | | | bedtime. | | | | | + + + +---------+ + + | CALCIUM | Take 2 tablets by | | 0 | | | | [id number] | mouth two times | | | [...] + + +---------+ + + | thyroid (STIPPLER | Take 30 mg by mouth | [...] LOS: 4 days ) Attending Provider: Jones Woo MD Interval History and Events: - Painful [...] morbid obesity s /p laparoscopic antecolic RYGB 2017, AMARA, bipolar disorder, depression, anxiety, history of [...] assist PRN. Anticipate discharge michelle Chandler MD Green Surgery, PGY-1 Green Missile Inspector Preflight Pager: [phone] signed by Jones Woo MD at 08/22/2019 1:36 PM Gadiel Armstrong MD - 08/21/2019 9:52 AM PSTFormatting of this note might be dif ferent from the original. DEPARTMENT OF SURGERY Green Surgery Admission Date: 08/18/2019 ( LOS: 3 days ) Attending Provider: Jones Woo MD Interval History and Events: - Painful overnight - oxy increased to 5-15 mg - Afebrile, VSS - Tolerating PO without nausea or vomiting - Kilgore removed - urinating after BP 112/64 (BP [...] dc in 2-3 days Gadiel Chandler MD Green Surgery, PGY-1 Green Missile Inspector [employer] Pager: [phone] Associated attestation - Jones Woo MD - 08/21/2019 9:57 AM PSTI performed a hist ory and physical examination of the patient and discussed her management with the resident. I reviewed the resident s note and agree with the documented findings and plan of care. JONES WOO MD [facility] [address] [place] [phone] Valencia Zamora MD - 08/20/2019 8:42 AM PSTFormatting of this note might be different fro m the original. DEPARTMENT OF SURGERY Green Surgery Admission Date: 08/18/2019 ( LOS: 2 days ) Attending Provider: Jones Woo MD Interval History and Events: Pain controlled [...] HCT 44.4 PLT 306 Assessment and Plan: Dlyan Romero is a 44 y.o. female with HTN, DM2, R CHF, hypothyroidism, morbid obesity s /p laparoscopic antecolic RYGB 2018, AMARA, bipolar disorder, depression, anxiety, history of stroke/TIA, DVT, and multiple hernia repairs presents with ventral hernia. Now sp ventral he rnia repair 08/19/2019 progressing well. - kilgore out today - dc MEDICARE CONTACT SPECIALIST - ppx lovenox today - therapeutic lovenox [...] care -Multimodal pain control Joselyn Everett MD [facility] General Surgery PGY1 [id number] Gadiel Armstrong MD - 08/19/2019 12:34 PM PST DEPARTMENT OF SURGERY Green Surgery Admission Date: 08/18/2019 ( LOS: 1 day ) Attending Provider: Jones Woo MD Interval History and Events: No acute [...] hernia repair with mesh Gadiel Chandler MD [facility], PGY-1 Green Missile Inspector Pref[employer] Pager: [phone] documented in this encounter H&P Notes Jones Woo MD - 08/18/2019 3:54 PM PST DEPARTMENT OF SURGERY Green Surgery History and Physical Patient: Dylan Romero ([id number]) Date: 08/18/2019 Chief Complaint: Abdominal pain History of Present Illness: Dylan Romero is a 44 yo F with a history of HTN, DM2, R CH F, hypothyroidism, morbid obesity s/p laparoscopic antecolic RYGB 2018, AMARA, bipolar disorde r, depression, anxiety, history of stroke/TIA, DVT, and multiple hernia repairs with a known incarcerated ventral hernia containing bowel who presented with abdominal pain. She is sche duled to undergo ventral hernia repair tomorrow w Dr. Woo. She reports some vomiting the last few days and worsening pain sp driving to [facility] from [place]. Past Surgical History Procedure Laterality Date Tonsillectomy and adenoidectomy Appendectomy, open 2010 Umbilical hernia repair 2010 Treatment of ankle fracture with screws remaining Incision and drainage of wound abscess x2 midline transverse wound s/p open appendectomy 2010 Ventral hernia repair 10/2012 Dr. Andie Brian Incisional hernia repair 03/01/2015 [facility]/ Dr. Cantu. Primary fascial closure and scar excision Lap gastric byp, and nish-en-y gastroenterostomy w/ nish limb 150 cm or less [facility], Dr Pandey Cholecystectomy, laparoscopic Past Medical History: [...] tablet Sig: Take 1 mg by mouth twice daily as needed. CALCIUM CRB&[id number]-[id number]-GENIS ORAL Sig: Take 2 tablets by mouth two times daily. Ferrous Gluconate 324 mg total salt (36 mg elemental iron) oral tablet Sig: Take 1 tablet by mouth once daily. PARoxetine 40 mg oral tablet Sig: Take 40 mg by mouth once daily at bedtime. acetaminophen 500 mg oral tablet Sig: Take 2 tablets by mouth every six hours as needed for mild pain. ascorbic acid (vitamin C) (VITAMIN C) 500 mg oral tablet Sig: Take 1 tablet by mouth once daily. atenolol 50 mg oral tablet Sig: Take 50 mg by mouth once daily at bedtime. cyanocobalamin 1,000 mcg oral tablet Sig: Take 1,000 mcg by mouth once daily. docusate sodium (STOOL SOFTENER ORAL) Sig: Take 200 mg by mouth. Equate brand per patient doxycycline hyclate 100 mg oral tablet Sig: Take 100 mg by mouth every twelve hours. (Pharmacist to substitute salt form as needed ) enoxaparin 120 mg/0.8 mL subcutaneous syringe Sig: INJECT 1 SYRINGE DIRECTED EVERY 12 HOURS ergocalciferol (VITAMIN D2) 50,000 unit oral capsule Sig: Take 1 capsule by mouth every seven days. Patient taking differently: Take 50,000 Units by mouth every Thursday. fentaNYL 12 mcg/hr transdermal patch Sig: Apply 1 patch to skin every seventy-two hours. Please remove old patch prior to placin g a new one. loperamide 2 mg oral capsule Sig: Take 2 mg by mouth four times daily as needed for diarrhea. lurasidone (LATUDA) 20 mg oral tablet Sig: Take 40 mg by mouth once daily at bedtime. magnesium oxide 400 mg oral tablet Sig: Take 400 mg by mouth two times daily. meclizine 12.5 mg oral tablet Sig: Take 12.5 mg by mouth twice daily as needed (dizziness/vertigo). metoclopramide HCl 10 mg oral tablet Sig: Take 10 mg by mouth every six hours as needed for nausea/vomiting. multivitamin oral tablet Sig: Take 1 tablet by mouth once daily. multivitamin with minerals (HAIR,SKIN AND NAILS ORAL) Sig: Take 1 tablet by mouth once daily. nystatin 100,000 unit/gram topical powder Sig: Apply to affected area two times daily. Apply to candidal lesions until lesions have h ealed. Indications: skin infection oxyCODONE (immediate release) 5 mg oral tablet Sig: Take 1-2 tablets by mouth every six hours as needed for moderate pain (unresponsive to non-opioid medication). phentermine 37.5 mg oral tablet Sig: Take 1 tablet by mouth once daily in the morning. Administer before breakfast. polyethylene glycol 17 gram oral powder in packet Sig: Mix 1 packet and take orally once daily. potassium chloride 20 mEq oral packet Sig: Take 40 mEq by mouth two times daily. pramipexole 0.125 mg oral tablet Sig: Take 0.25 mg by mouth once daily at bedtime. prochlorperazine 10 mg oral tablet Sig: Take 50 mg by mouth once daily at bedtime. Max dose: 40 mg/day promethazine 25 mg oral tablet Sig: Take 0.5 tablets by mouth four times daily as needed for nausea/vomiting. Indications: Post-Operative Nausea and Vomiting rizatriptan (MAXALT) 5 mg oral tablet Sig: Take 5 mg by mouth as needed. May repeat in 2 hours as needed (Max: 30 mg per 24 hour period). senna (SENNA LAX) 8.6 mg oral tablet Sig: Take 1 tablet by mouth once daily. spironolactone 50 mg oral tablet Sig: Take 50 mg by mouth once daily. thyroid (ARMOUR THYROID) 30 mg oral tablet tab Sig: Take 30 mg by mouth once daily at bedtime. topiramate 50 mg oral tablet Sig: Take 1 tablet by mouth two times daily. May increase by 1 tab twice daily every 2 week s, as tolerated. Max dose is 2 tabs twice daily. Patient taking differently: Take 100 mg by mouth three times daily. May increase by 1 tab t wice daily every 2 weeks, as tolerated. Max dose is 2 tabs twice daily. Indications: essent ial tremor torsemide 100 mg oral tablet Sig: Take 100 mg by mouth two times daily. Resume half dose for first week post opertative warfarin 5 mg oral tablet Sig: Take 10 mg by mouth once daily. Facility-Administered Medications: None Allergies Allergen Reactions Benadrilina [Diphenhydramine Hcl] Hives and Throat Swelling / Closing Amoxicillin Hives Parlodel [Bromocriptine] Unknown Blood clots Penicillins Hives [...] file Tobacco Use Smoking status: Former Smoker Types: Cigarettes Smokeless tobacco: Never Used Tobacco comment: former social smoker Substance and Sexual Activity Alcohol use: No Alcohol/week: 0.0 standard drinks Drug use: No Sexual activity: Not on file Lifestyle Physical activity: Days per week: Not on file Minutes per session: Not on file Stress: Not on file Relationships Social connections: Talks on phone: Not on file Gets together: Not on file Attends yazidi service: Not on file Active member of club or organization: Not on file Attends meetings of clubs or organizations: Not on file Relationship status: Not on file Other Topics Concern Not on file Social History Narrative Updated 11/09/15 She lives in [place] with her mother and her sister (also her caregiver) lives in an apa rtment/duplex below. She has 2 grandchildren (age 4 and 7) who live with her daughter and son-in-law Her boyfriend lives in [place] HFpEF, DM2, HTN, Sleep Apnea (unable to [...] program here and refer her to our social problems specialist who also has expertise in physical [...] as noted. All other systems negative. BP 129/70 (BP Location: Left lower arm, Patient Position: Lying on back) | Pulse 95 | Tem p 37.2 C (99 F) (Oral) | Resp 18 | Ht 1.473 m (4' 10") | Wt (!) 120.2 kg (265 lb) | SpO2 100% | BMI 55.39 kg/m | BSA 2.22 m General: obese woman laying in bed Resp: breathing well on RA CV: RR Abd: ecchymosis of the abdomen, compressible hernia, slightly TTP Mental Status: appropriate Assessment and Plan: Dylan Romero is a 44 y.o. female w ventral hernia. Presenting to the ED for abdominal p ain, acute on chronic sp her travels to [place]. She is scheduled for surgery tomorrow. Admit overnight for pain control NPO now Fluids Resume home meds lovenox therapeutic tonight (hx of clot) I performed a history and physical examination of the patient and discussed her management with the resident. I reviewed the resident s note and agree with the documented findings and plan of care. Acute exacerbation of her pain with ride from [facility] is unusual. No acu te changes noted on exam or labs. Will plan to admit and control pain overnight and operat e in am. JONES WOO MD [facility] [address] [place] [address] documented in this encounter Consult Notes Megan Marx - 08/23/2019 7:22 AM PST Pharmacy Services: Warfarin Anticoagulation Note - Indication: History of stroke and DVT - INR goal: 2-3 - Warfarin: 10 mg by mouth tonight at 2100 - Therapeutic bridging: Enoxaparin, treatment dose. Warfarin was held since 08/16 for a proc edure that took place on 08/19 (Primary ventral incisional hernia repair) - Patient education: Patient education/educational assessment documented in the patient edu cation activity this admission on 08/22/19 - Home Regimen: 10 mg daily - Anticoagulation Clinic/Provider: PCP: Dr Davison at [facility], Edie han at [facility] Lab Date INR Warfarin Dose 08/23 1.04 10 mg Ordered 08/22 1,08 10 mg 08/18 1.11 Held Monitoring - Drug interactions: No new significant interactions. - Changes to diet: Yes - Patient reports eating more salads than usual - Patient receiving continuous tube feedings: No - Bruising or bleeding report: None noted - Events affecting anticoagulation (vitamin K, FFP, PRBC administration): Yes - warfarin wa s held since 08/16 for a procedure that took place on 08/19 (Primary ventral incisional hernia repair) INR (INR) Date Value 08/23/2019 1.04 08/22/2019 1.08 08/18/2019 1.11 HEMOGLOBIN (g/dL) Date/Time Value 08/22/2019 1009 12.3 08/18/2019 1618 14.3 HEMATOCRIT (%) Date/Time Value 08/22/2019 1009 39.8 08/18/2019 1618 44.4 PLATELET COUNT (K/cu mm) Date/Time Value 08/22/2019 1009 210 08/18/2019 1618 306 Current medications: acetaminophen (TYLENOL) tablet 1,000 mg, 1,000 mg, oral, Q6H ALPRAZolam (XANAX) tablet 1 mg, 1 mg, oral, BID PRN atenoloL (TENORMIN) tablet 50 mg, 50 mg, oral, HS chlorproMAZINE (THORAZINE) tablet 50 mg, 50 mg, oral, QPM docusate sodium (COLACE) capsule 200 mg, 200 mg, oral, DAILY enoxaparin (LOVENOX) injection 120 mg, 1 mg/kg, subcutaneous, Q12H (Scheduled) HYDROmorphone (DILAUDID) tablet 2-3 mg, 2-3 mg, oral, Q4H PRN lidocaine (LIDODERM) 5 % patch 1 patch, 1 patch, transdermal, Q24H loperamide (IMODIUM) capsule 2 mg, 2 mg, oral, QID PRN lurasidone (LATUDA) tablet 40 mg, 40 mg, oral, HS meclizine (ANTIVERT) tablet 12.5 mg, 12.5 mg, oral, BID PRN menthol-zinc oxide (CALAZIME) topical paste 0.2%-16.5%, , topical, PRN metoclopramide HCl (REGLAN) tablet 10 mg, 10 mg, oral, Q6H PRN naloxone (NARCAN) injection 40 mcg, 40 mcg, intravenous, PRN PARoxetine (PAXIL) tablet 40 mg, 40 mg, oral, HS polyethylene glycol (MIRALAX) packet 17 g, 1 packet, oral, DAILY pramipexole (MIRAPEX) tablet 0.25 mg, 0.25 mg, oral, HS prochlorperazine (COMPAZINE) injection 5 mg, 5 mg, intravenous, Q6H PRN simethicone chew (MYLICON) tablet 80 mg, 80 mg, oral, TID PRN topiramate (TOPAMAX) tablet 100 mg, 100 mg, oral, BID torsemide (DEMADEX) tablet 50 mg, 50 mg, oral, BID warfarin (COUMADIN) tablet 10 mg, 10 mg, oral, QPM Pharmacy Services will continue to follow and make recommendations. Please page clinical ph armacist (#[phone]) or call central inpatient pharmacy ([phone]) with questions. Megan Marx PharmD Candidate 2019 Associated attestation - Nicholas Davison PharmD - 08/23/2019 8:21 AM PSTI have personally reviewed the patients warfarin dosing and monitoring with the pharmacy general manager. I agree wi th their assessment and plan as outlined in the note. Thank you, Nicholas Davison PharmD Clinical Pharmacist [facility] Department of Pharmacy, CR 9-[address] [facility] [address] [place] [address] Pager: [phone] Megan Marx - 08/22/2019 10:06 AM PST Pharmacy Services: Warfarin Anticoagulation Note - Indication: History of stoke and DVT - INR goal: 2-3 - Warfarin: 10 mg by mouth tonight at 2100 - Therapeutic bridging: Enoxaparin, treatment dose. Warfarin was held since 08/16 for a proc edure that took place on 08/19 (Primary ventral incisional hernia repair) - Patient education: Patient education/educational assessment documented in the patient edu cation activity this admission on 08/22/19 - Home Regimen: 10 mg daily - Anticoagulation Clinic/Provider: PCP: Dr Davison at [facility], IN[facility] complet ed at [facility] Lab Date INR Warfarin Dose 08/22 1.08 10 mg Ordered 08/18 1.11 Held Monitoring - Drug interactions: No new significant interactions - Changes to diet: Yes - Patient reports eating more salads than usual - Patient receiving continuous tube feedings: No - Bruising or bleeding report: None noted - Events affecting anticoagulation (vitamin K, FFP, PRBC administration): Yes - Warfarin wa s held since 08/16 for a procedure that took place on 08/19 (Primary ventral incisional hernia repair) INR (INR) Date Value 08/18/2019 1.11 HEMOGLOBIN (g/dL) Date/Time Value 08/18/2019 1618 14.3 HEMATOCRIT (%) Date/Time Value 08/18/2019 1618 44.4 PLATELET COUNT (K/cu mm) Date/Time Value 08/18/2019 1618 306 Current medications: acetaminophen (TYLENOL) tablet 1,000 mg, 1,000 mg, oral, Q6H ALPRAZolam (XANAX) tablet 1 mg, 1 mg, oral, BID PRN atenoloL (TENORMIN) tablet 50 mg, 50 mg, oral, HS chlorproMAZINE (THORAZINE) tablet 50 mg, 50 mg, oral, QPM docusate sodium (COLACE) capsule 200 mg, 200 mg, oral, DAILY enoxaparin (LOVENOX) injection 120 mg, 1 mg/kg, subcutaneous, Q12H (Scheduled) HYDROmorphone (DILAUDID) tablet 2-3 mg, 2-3 mg, oral, Q4H PRN lidocaine (LIDODERM) 5 % patch 1 patch, 1 patch, transdermal, Q24H loperamide (IMODIUM) capsule 2 mg, 2 mg, oral, QID PRN lurasidone (LATUDA) tablet 40 mg, 40 mg, oral, HS meclizine (ANTIVERT) tablet 12.5 mg, 12.5 mg, oral, BID PRN menthol-zinc oxide (CALAZIME) topical paste 0.2%-16.5%, , topical, PRN metoclopramide HCl (REGLAN) tablet 10 mg, 10 mg, oral, Q6H PRN naloxone (NARCAN) injection 40 mcg, 40 mcg, intravenous, PRN PARoxetine (PAXIL) tablet 40 mg, 40 mg, oral, HS polyethylene glycol (MIRALAX) packet 17 g, 1 packet, oral, DAILY pramipexole (MIRAPEX) tablet 0.25 mg, 0.25 mg, oral, HS prochlorperazine (COMPAZINE) injection 5 mg, 5 mg, intravenous, Q6H PRN simethicone chew (MYLICON) tablet 80 mg, 80 mg, oral, TID PRN topiramate (TOPAMAX) tablet 100 mg, 100 mg, oral, BID torsemide (DEMADEX) tablet 50 mg, 50 mg, oral, BID warfarin (COUMADIN) tablet 10 mg, 10 mg, oral, QPM Pharmacy Services will continue to follow and make recommendations. Please page clinical ph andra (#[phone]) or call central inpatient pharmacy ([phone]) with questions. Megan Marx, PharmD Candidate 2019 Associated attestation - Nicholas Davison PharmD - 08/23/2019 8:17 AM PSTI have personally reviewed the patients warfarin dosing and monitoring with the pharmacy general manager. I agree wi th their assessment and plan as outlined in the note. Thank you, Nicholas Davison PharmD Clinical Pharmacist [facility] Department of Pharmacy, CR 9-4 [address] [facility] [place], [place] [address] Pager: [phone] Nicholas Davison PharmD - 08/20/2019 8:51 AM PST Pharmacy Services: Enoxaparin Anticoagulation Note Assessment/Plan: - Dylan Romero is a 44 year old female anticoagulated with subcutaneous enoxaparin 120 mg every 12 hours for history of stroke and DVT Monitoring: - Continue monitoring serum creatinine and urine output as ordered - Anti-Xa level monitoring not indicated at this time, will reassess daily. - Continue monitoring for signs and symptoms of bleeding - Continue monitoring for signs of heparin induced thrombocytopenia (plt < 100k or decrease > 50% from baseline, new DVT after enoxaparin initiation), platelet count ordered daily wit h AM labs Holding therapy: - If planned surgery or procedure, hold enoxaparin dose at least 12-24 hours prior to proce dure, according to renal function Transition to other agents: - Plan to continue enoxaparin at current dose until transition to clinically appropriate al ternate agent (TBD) - Pharmacy Services will continue to follow and make recommendations. Please page clinical pharmacist (#[phone]) or call central inpatient pharmacy ([phone]) with questions Subjective/Objective: Allergies: Benadrilina [diphenhydramine hcl]; Amoxicillin; Ibuprofen; Parlodel [bromocripti ne]; Penicillins; and Zofran [ondansetron hcl (pf)] Most recent weight: Weight: 120.2 kg (265 lb) (08/18/19 1357) History of HIT/HAT/positive antibodies: no Bruising or bleeding report: None noted Overnight events: None Labs: Hemoglobin/hematocrit: 14.3 / 44.4 / 306 PLATELET COUNT (K/cu mm) Date Value 08/18/2019 306 CREATININE PLASMA (LAB) (mg/dL) Date Value 08/18/2019 0.85 Current medications: acetaminophen (TYLENOL) tablet 1,000 mg, 1,000 mg, oral, Q6H PRN ALPRAZolam (XANAX) tablet 1 mg, 1 mg, oral, BID PRN atenoloL (TENORMIN) tablet 50 mg, 50 mg, oral, HS chlorproMAZINE (THORAZINE) tablet 50 mg, 50 mg, oral, QPM docusate sodium (COLACE) capsule 200 mg, 200 mg, oral, DAILY [START ON 08/21/2019] enoxaparin (LOVENOX) injection 120 mg, 1 mg/kg, subcutaneous, Q12H (Sc heduled) enoxaparin (LOVENOX) injection 40 mg, 40 mg, subcutaneous, QPM HYDROmorphone (DILAUDID) injection 0.2 mg, 0.2 mg, intravenous, Q3H PRN lactated ringers (LR) infusion, 75 mL/hr, intravenous, CONTINUOUS lidocaine (LIDODERM) 5 % patch 1 patch, 1 patch, transdermal, Q24H loperamide (IMODIUM) capsule 2 mg, 2 mg, oral, QID PRN lurasidone (LATUDA) tablet 40 mg, 40 mg, oral, HS meclizine (ANTIVERT) tablet 12.5 mg, 12.5 mg, oral, BID PRN metoclopramide HCl (REGLAN) tablet 10 mg, 10 mg, oral, Q6H PRN oxyCODONE (immediate release) (ROXICODONE) tablet 5-10 mg, 5-10 mg, oral, Q4H PRN PARoxetine (PAXIL) tablet 40 mg, 40 mg, oral, HS polyethylene glycol (MIRALAX) packet 17 g, 1 packet, oral, DAILY pramipexole (MIRAPEX) tablet 0.25 mg, 0.25 mg, oral, HS prochlorperazine (COMPAZINE) injection 5 mg, 5 mg, intravenous, Q6H PRN topiramate (TOPAMAX) tablet 100 mg, 100 mg, oral, BID Current contraindicated/interacting medications (NSAIDs, IM injections, etc): None Other anticoagulants/anti-platelet agents: None Previous anticoagulation: yes - patient anticoagulated with warfarin as outpatient Assessment/Plan: Added to top of note Thanks, Nicholas Davison PharmD Clinical Pharmacist [facility] [place] Department of Pharmacy, CR [address] [place], [place] [address] Pager: [phone] Gena Welsh - 08/18/2019 7:25 PM PST Pharmacy Services: Admission Medication Reconciliation Prior to Admission Medications: Prior to Admission Medications Prescriptions Last Dose Informant Patient Reported? Taking? ALPRAZolam 1 mg oral tablet 08/18/2019 at 05:00 Yes Yes Sig: Take 1 mg by mouth three times daily as needed. CALCIUM [id number] ORAL 08/17/2019 at PM Yes Yes Sig: Take 2 tablets by mouth two times daily. CHLORPHENIRAMINE-PHENYLEPHRINE ORAL Yes Yes Sig: Take 1 tablet by mouth every four hours as needed. Ferrous Gluconate 324 mg total salt (36 mg elemental iron) oral tablet 08/17/2019 at AM No Yes Sig: Take 1 tablet by mouth once daily. INTRAUTERINE DEVICE (IUD) UTRN Yes Yes Sig: by intrauterine route. PARoxetine 40 mg oral tablet 08/17/2019 at PM Yes Yes Sig: Take 40 mg by mouth once daily at bedtime. ascorbic acid (vitamin C) (VITAMIN C) 500 mg oral tablet 08/18/2019 at Unknown time No Yes Sig: Take 1 tablet by mouth once daily. atenolol 50 mg oral tablet Within last 7 days at 08/13/19 Yes Yes Sig: Take 50 mg by mouth once daily at bedtime. chlorproMAZINE 25 mg oral tablet 08/17/2019 at PM Yes Yes Sig: Take 50 mg by mouth once daily at bedtime. cyanocobalamin 1,000 mcg oral tablet 08/17/2019 at AM Yes Yes Sig: Take 1,000 mcg by mouth once daily. docusate sodium (STOOL SOFTENER) 100 mg oral capsule 08/17/2019 at PM Yes Yes Sig: Take 200 mg by mouth two times daily. enoxaparin 120 mg/0.8 mL subcutaneous syringe Within last 7 days at 08/16/19 Yes Yes Sig: INJECT 1 SYRINGE DIRECTED EVERY 12 HOURS ergocalciferol (VITAMIN D2) 50,000 unit oral capsule Within last 7 days at 08/16/19 No Yes Sig: Take 1 capsule by mouth every seven days. Patient taking differently: Take 50,000 Units by mouth every Thursday. loperamide 2 mg oral capsule Within last 7 days at 08/16/19 Yes Yes Sig: Take 2 mg by mouth four times daily as needed for diarrhea. lurasidone (LATUDA) 20 mg oral tablet 08/17/2019 at PM Yes Yes Sig: Take 40 mg by mouth once daily at bedtime. magnesium oxide 400 mg oral tablet 08/17/2019 at PM Yes Yes Sig: Take 400 mg by mouth two times daily. menthol/zinc oxide (GOLD FARRIS MEDICATED TOP) Yes Yes Sig: Apply to infected area two times daily. metoclopramide HCl 10 mg oral tablet 08/18/2019 at AM Yes Yes Sig: Take 10 mg by mouth every six hours as needed for nausea/vomiting. multivitamin oral tablet 08/17/2019 at AM Yes Yes Sig: Take 1 tablet by mouth once daily. phentermine 37.5 mg oral tablet 08/17/2019 at AM No Yes Sig: Take 1 tablet by mouth once daily in the morning. Administer before breakfast. potassium chloride 20 mEq oral packet 08/17/2019 at PM Yes Yes Sig: Take 40 mEq by mouth two times daily. pramipexole 0.125 mg oral tablet 08/17/2019 at PM Yes Yes Sig: Take 0.25 mg by mouth once daily at bedtime. rizatriptan (MAXALT) 5 mg oral tablet 08/17/2019 at AM Yes Yes Sig: Take 5 mg by mouth as needed. May repeat in 2 hours as needed (Max: 30 mg per 24 hour period). spironolactone 50 mg oral tablet 08/17/2019 at AM Yes Yes Sig: Take 50 mg by mouth once daily. thyroid (STIPPLER THYROID) 30 mg oral tablet tab 08/17/2019 at PM Yes Yes Sig: Take 30 mg by mouth once daily at bedtime. topiramate 50 mg oral tablet 08/17/2019 at PM No Yes Sig: Take 1 tablet by mouth two times daily. May increase by 1 tab twice daily every 2 week s, as tolerated. Max dose is 2 tabs twice daily. Patient taking differently: Take 100 mg by mouth three times daily. Indications: essential tremor torsemide 100 mg oral tablet 08/17/2019 at PM Yes Yes Sig: Take 100 mg by mouth two times daily. Resume half dose for first week post opertative warfarin 5 mg oral tablet Within last 7 days at 08/13/19 Yes Yes Sig: Take 10 mg by mouth once daily. Facility-Administered Medications: None The above list reflects the patient's prior to admission medication use and is complete and accurate to the best of my knowledge. Source of Medication Information: Patient and family Reliability: Reliable All questions concerning medications, including OTC and herbal products, were addressed. For questions regarding this information please contact pharmacy, pager [phone] Gena Price PharmD doyohan mented in this encounter ED Notes Daryn Kahn RN - 08/18/2019 7:05 PM PSTRN Admission/Transfer Note Reason for admission: incarcerated hernia Pertinent physical findings (Focused assessment, Pain/discomfort, Neuro, Cards/tele and Res p assessment): pt s/p bariatric surgery with incarcerated hernia. Plan for surgery tomorrow. Patient-specific pain target: 0 Pertinent PMHx (See also Code Status, MAR, Results, Allergies, Medication reconciliation & Medical History): morbid obesity. Restrictions: NPO Psych/social assessment & interventions: No pertinent issues noted. No interventions needed . Safety risks (Identify patient triggers/safety concerns & effective interventions): no safe ty risks noted Isolation status: None Legal status: Voluntary Medical/psychosocial stability: Moderately Stable Transport/transitions concerns as related to stability: None Orders to follow up on: per admission Belongings check: Completed; Unsecured Report called to: RN in 10a unit. MD report called? yes Education provided to the patient/family: course of care. ary Hess RN - 08/18/2019 6:11 PM PSTBed: 16 Expected date: Expected time: Means of arrival: Comments: HW B moving here oAixa nieves MD - 08/18/2019 5:33 PM PSTIPAS(S) Handoff Note I received sign-out and accepted care of this patient from the departing resident and atten ding at 5:33 PM. Please see the primary providers note for complete elements of the histo ry, physical exam, and ED course. Illness Severity: Stable Patient Summary: Most recent vital signs: BP 128/70 | Pulse 93 | Temp 37.2 C (Oral) | Resp 16 | Ht 1.4 73 m (4' 10") | Wt (!) 120.2 kg (265 lb) | SpO2 97% | BMI 55.39 kg/m | BSA 2.22 m Dylan Romero is a 44 y.o. female with a PMHx of obesity, chronic large ventral hernia t hat is chronically incarcerated, scheduled for repair tomorrow presented to the ED with days of worsening pain and vomiting. Green surgery consulted and accepted pt. Lab and imaging results: - Lactate and VBG okay - CMP unremarkable except mild alk phos elevation - CBC with mild leukocytosis No additional imaging. Action plan (To Do): - NTD, admitted to green surgery ED Course Following Sign Out: Admitted to green surgery, no further events Aixa Hernandez MD Associated attestation - Nay Joe MD - 08/19/2019 8:12 PM Kaya Joe MD, Faculty Note: I received sign-out and accepted care of this patient from the preceding team. I continued to participate in the care of the patient and discussed the diagnosis, management, and inte rpretation of results with the resident, Dr. Hernandez. I have reviewed and agree with the do cumentation in the provider note. Keerthi Jaimes, KELSIE - 08/18/2019 4:52 PM PSTPt sitting up on stretcher talking on phone, appears in no distress Orquidea Rick RN - 08/18/2019 3:26 PM PSTGreen surgery team at bedsideElectronically si gned by Orquidea Parks RN at 08/18/2019 3:26 PM PSTJackie Asher MD - 08/18/2019 2:53 P M PST ED Individual Provider Note, Jackie Asher MD: HPI 44-year-old female with past medical history of morbid obesity, large ventral hernia with p lans for repair tomorrow with Dr. Woo, prior DVT off anticoagulation for 2 days in an ticipation of surgery, presents with worsening abdominal pain and vomiting. She was referre d in by Dr. Woo for evaluation, with concern for potential strangulation. The patient reports that she has vomited a few times a day for the last couple of days. Sh yesenia feels like every time she tries to eat, it comes right back up. She has also been having worsening pain over her hernia. She has not tried anything for the pain. She says that she alternates between diarrhea and constipation, and her last bowel movement was yesterday, an d it was diarrhea. She has been passing flatus since then. No fevers. No dysuria or hematuria. No URI symptoms. The patient states that she started holding her Coumadin a few days ago and did a Lovenox b ridge as directed. She has not had any anticoagulation for 2 days. She has extensive bruis ing on her abdomen, which she states is all Lovenox injection site related. PCP: Kenyatta Cardenas MD Patient Active Problem [...] Priority: 3 Hypoventilation associated with obesity ([facility]) 06/16/2013 Priority: 4 AMARA (obstructive sleep apnea) 04/14/2013 Priority: 4 Overview Note: Cannot tolerate CPAP Severe Morbid obesity ([facility]), BMI 88 11/12/2012 Priority: 4 Overview Note: Lifetime max: 495 lbs Phentermine started Type 2 diabetes mellitus ([facility]) 04/14/2013 Priority: 5 Iron deficiency anemia due to chronic blood loss 11/11/2015 Priority: 6 Overview Note: Ferritin 18 on 10/2015 Hypoalbuminemia (no proteinuria, need to rule out synthetic, nutrition, loss) 6 Priority: 6 Hypothyroidism 08/28/2014 Priority: 8 Hypothyroidism 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 03/10/2018 Morbid obesity with BMI of 70 and over, adult ([facility]) 02/02/2017 Chronic diastolic heart failure ([facility]) 02/02/2017 Immobility 02/02/2017 Severe muscle deconditioning 02/02/2017 Personal history of DVT (deep vein thrombosis) 02/02/2017 History of pulmonary embolism 02/02/2017 Benign essential HTN 02/02/2017 Diabetes mellitus type 2 without retinopathy ([facility]) 02/02/2017 Hyperlipidemia 02/02/2017 Ventral [...] to Bromocriptine Myalgia and myositis Bipolar disorder ([facility]) Depression Anemia Chronic wound infection of abdomen from 2010 Morbid obesity with body mass index of 70 and over in adult ([facility]) Incisional hernia, incarcerated 2012 Hernia of abdominal wall Dizziness Numbness Nausea Abdominal pain Shortness of breath Palpitations Kidney stone Leaking of urine Irregular periods Leg sore Anxiety Sleep apnea Hypothyroidism Morbid obesity ([facility]) Past Surgical History Procedure Date Tonsillectomy and adenoidectomy Appendectomy, open 2010 Umbilical hernia repair 2010 Treatment of ankle fracture with screws remaining Incision and drainage of wound abscess x2 midline transverse wound s/p open appendectomy 2010 Ventral hernia repair 10/2012 Dr. Andie Brian Incisional hernia repair 03/01/2015 [facility]/ Dr. Cantu. Primary fascial closure and scar excision Lap gastric byp, and nish-en-y gastroenterostomy w/ nish limb 150 cm or less 03/01/2018 [facility], Dr Pandey Cholecystectomy, laparoscopic Medications Prior to Admission Medications Prescriptions Last Dose Informant Patient Reported? Taking? ALPRAZolam 1 mg oral tablet Yes No Sig: Take 1 mg by mouth twice daily as needed. CALCIUM [id number] ORAL Yes No Sig: Take 2 tablets by mouth two times daily. Ferrous Gluconate 324 mg total salt (36 mg elemental iron) oral tablet No No Sig: Take 1 tablet by mouth once daily. PARoxetine 40 mg oral tablet Yes No Sig: Take 40 mg by mouth once daily at bedtime. acetaminophen 500 mg oral tablet No No Sig: Take 2 tablets by mouth every six hours as needed for mild pain. ascorbic acid (vitamin C) (VITAMIN C) 500 mg oral tablet No No Sig: Take 1 tablet by mouth once daily. atenolol 50 mg oral tablet Yes No Sig: Take 50 mg by mouth once daily at bedtime. cyanocobalamin 1,000 mcg oral tablet Yes No Sig: Take 1,000 mcg by mouth once daily. docusate sodium (STOOL SOFTENER ORAL) Yes No Sig: Take 200 mg by mouth. Equate brand per patient doxycycline hyclate 100 mg oral tablet Yes No Sig: Take 100 mg by mouth every twelve hours. (Pharmacist to substitute salt form as needed ) enoxaparin 120 mg/0.8 mL subcutaneous syringe Yes No Sig: INJECT 1 SYRINGE DIRECTED EVERY 12 HOURS ergocalciferol (VITAMIN D2) 50,000 unit oral capsule No No Sig: Take 1 capsule by mouth every seven days. Patient taking differently: Take 50,000 Units by mouth every Thursday. fentaNYL 12 mcg/hr transdermal patch Yes No Sig: Apply 1 patch to skin every seventy-two hours. Please remove old patch prior to placin g a new one. loperamide 2 mg oral capsule Yes No Sig: Take 2 mg by mouth four times daily as needed for diarrhea. lurasidone (LATUDA) 20 mg oral tablet Yes No Sig: Take 40 mg by mouth once daily at bedtime. magnesium oxide 400 mg oral tablet Yes No Sig: Take 400 mg by mouth two times daily. meclizine 12.5 mg oral tablet Yes No Sig: Take 12.5 mg by mouth twice daily as needed (dizziness/vertigo). metoclopramide HCl 10 mg oral tablet Yes No Sig: Take 10 mg by mouth every six hours as needed for nausea/vomiting. multivitamin oral tablet Yes No Sig: Take 1 tablet by mouth once daily. multivitamin with minerals (HAIR,SKIN AND NAILS ORAL) Yes No Sig: Take 1 tablet by mouth once daily. nystatin 100,000 unit/gram topical powder No No Sig: Apply to affected area two times daily. Apply to candidal lesions until lesions have h ealed. Indications: skin infection oxyCODONE (immediate release) 5 mg oral tablet No No Sig: Take 1-2 tablets by mouth every six hours as needed for moderate pain (unresponsive to non-opioid medication). phentermine 37.5 mg oral tablet No No Sig: Take 1 tablet by mouth once daily in the morning. Administer before breakfast. polyethylene glycol 17 gram oral powder in packet No No Sig: Mix 1 packet and take orally once daily. potassium chloride 20 mEq oral packet Yes No Sig: Take 40 mEq by mouth two times daily. pramipexole 0.125 mg oral tablet Yes No Sig: Take 0.25 mg by mouth once daily at bedtime. prochlorperazine 10 mg oral tablet Yes No Sig: Take 50 mg by mouth once daily at bedtime. Max dose: 40 mg/day promethazine 25 mg oral tablet No No Sig: Take 0.5 tablets by mouth four times daily as needed for nausea/vomiting. Indications: Post-Operative Nausea and Vomiting rizatriptan (MAXALT) 5 mg oral tablet Yes No Sig: Take 5 mg by mouth as needed. May repeat in 2 hours as needed (Max: 30 mg per 24 hour period). senna (SENNA LAX) 8.6 mg oral tablet No No Sig: Take 1 tablet by mouth once daily. spironolactone 50 mg oral tablet Yes No Sig: Take 50 mg by mouth once daily. thyroid (ARMOUR THYROID) 30 mg oral tablet tab Yes No Sig: Take 30 mg by mouth once daily at bedtime. topiramate 50 mg oral tablet No No Sig: Take 1 tablet by mouth two times daily. May increase by 1 tab twice daily every 2 week s, as tolerated. Max dose is 2 tabs twice daily. Patient taking differently: Take 100 mg by mouth three times daily. May increase by 1 tab t wice daily every 2 weeks, as tolerated. Max dose is 2 tabs twice daily. Indications: essent ial tremor torsemide 100 mg oral tablet Yes No Sig: Take 100 mg by mouth two times daily. Resume half dose for first week post opertative warfarin 5 mg oral tablet Yes No Sig: Take 10 mg by mouth once daily. Facility-Administered Medications: None Allergies Allergen Reactions Benadrilina [Diphenhydramine Hcl] Hives and Throat Swelling / Closing Amoxicillin Hives Parlodel [Bromocriptine] Unknown Blood clots Penicillins Hives Zofran [Ondansetron Hcl (Pf)] Hives Social history - former tobacco. Currently living at [facility]. Social History Tobacco Use Smoking status: Former Smoker Types: Cigarettes Smokeless tobacco: Never Used Tobacco comment: former [...] as noted in HPI. ED Triage Vitals [08/18/19 1357] BP Temp Heart Rate Pulse - Plethysmograph Resp SpO2 129/70 37.2 C 95 -- 18 100 % Physical Exam Constitutional: Appearance: She is well-developed. HENT: Head: Normocephalic and atraumatic. Eyes: Conjunctiva/sclera: Conjunctivae normal. Pupils: Pupils are equal, round, and reactive to light. Cardiovascular: Rate and Rhythm: Normal rate and regular rhythm. Heart sounds: Normal heart sounds. Pulmonary: Effort: Pulmonary effort is normal. No respiratory distress. Breath sounds: Normal breath sounds. Abdominal: General: There is no distension. Palpations: Abdomen is soft. Tenderness: There is abdominal tenderness. There is no guarding or rebound. Comments: Large, nonreducible ventral hernia, TTP over right side of abdomen. No overlyi ng skin changes. + bilateral, symmetric extensive bruising at lovenox injection sites. Musculoskeletal: Normal range of motion. Skin: General: Skin is warm and dry. Neurological: Mental Status: She is alert and oriented to person, place, and time. Coordination: Coordination normal. ED COURSE AND MEDICAL DECISION MAKING: Dylan Romero is a 44 y.o. female presenting with worsening pain and vomiting in setting of known, large hernia. The vitals and physical exam were notable for the following: normal vitals; tender abdomen with large ventral hernia, TTP. A review of some of the patient s prior medical records was performed using chart review and Care Everywhere. Given the patient's history and exam, initial differential diagnosis includes but is not li mited to incarcerated hernia, strangulated hernia (seems less likely given lack of overlying skin changes, normal vitals, normal lactate), obstruction (still passing flatus). Given that the patient is well known to green surgery and they have plans to take her to e OR tomorrow, will consult them prior to ordering any imaging. Laboratory results were reviewed and interpreted below. The patient received the following in the emergency department (including medications, interventions, consultations, and reasse ssments): ED Course as of Aug 18 1751 Jasmyne Aug 18, 2019 1500 Green surgery resident aware; will consult. [SK] 1530 Admitting her to surg [GP] 1649 CBC - mild leukocytosis, not anemic UA - no UTI [SK] 1751 Lactate normal INR 1.1 [SK] ED Course User Index [GP] Jacobo Todd MD [SK] Jackie Asher MD ED Medication Administration from 08/18/2019 1346 to 08/18/2019 1752 Date/Time Order Dose Route Action 08/18/2019 1603 HYDROmorphone (DILAUDID) injection 0.5 mg 0.5 mg intravenous IV Push 08/18/2019 1724 HYDROmorphone (DILAUDID) injection 0.5 mg 0.5 mg intravenous IV Push 08/18/2019 1602 lactated ringers (LR) bolus 1,000 mL 1,000 mL intravenous New Bag 08/18/2019 1603 prochlorperazine (COMPAZINE) injection 5 mg 5 mg intravenous IV Push Admit Requested: Aug 18, 2019 4:19 PM IMPRESSION: K43.9 Ventral hernia without obstruction or gangrene E66.01 Severe Morbid obesity (HCC), BMI 88 K46.0 Incarcerated hernia PLAN, DISPOSITION AND FOLLOW-UP: Admit to green surgery IPASS to oncoming team - awaiting bed New Prescriptions No medications on file abino Hobson R N - 08/18/2019 1:56 PM PSTPt arrived by ambulance from [place], stating she is scheduled to have hernia surgery with Dr. Woo tomorrow. Reports worsening abd pain today, rates 7/10 and constant, with nausea. Last PO was at 1100 today. Mary Suarez RN - 08/18/2019 1:47 PM PSTBed: HW B Expected date: Expected time: Means of arrival: Comments: [id number] signed by Mayr Hess RN at 08/18/2019 1:47 PM PSTdocumented in this en counter Miscellaneous Notes Plan of Care - Cyndi Ward RN - 08/23/2019 1:00 PM PSTNursing Discharge Note Discharge Date: 08/23/2019 The patient has been medically cleared for discharge. The AVS & belongings forms were revie wed with the patient and she has no questions. Discharge medications were picked up from the pharmacy and given to the patient. Follow up appointments were addressed. IV catheter was r emoved with tip intact. The patient will be leaving via a [employer] to dis charge home. Discharge Nurse: Cyndi Ward RN andoff - Andria Sierra Sa, RN - 08/23/2019 5:28 AM PSTNursing Handoff Patient Daily Goal: Dylan would like her pain managed this shift to promote sleep and rest. (08/22/191952) [facility] IP NURSE HANDOFF: Jiang hospital course events: Dylan Romero is a 44 y.o. femalewi th HTN, DM2, R CHF, hypothyroidism, morbid obesity s/p laparoscopic antecolic RYGB 2018, AMARA , bipolar disorder, depression, anxiety, history of stroke/TIA, DVT, and multiple hernia rep airs presents with ventral hernia. Now sp ventral hernia repair 08/19/2019 progressing well. (Jones Woo MD) SAFETY Patient/Family Target: Dylan will ambulate safely in her room this shift. Progress to Target: Improving As evidenced by: Dylan demonstrated stable dynamic balance when ambulating to the BR and back to bed. Cont inue as independent, up ad jelena in room. COMFORT/ANXIETY/BEHAVIOR Patient/Family Target: This shift Dylan will rate her pain as well managed, less than 5/10 as tolerable. Progress to Target: No Change As evidenced by: Dylan continues to rate her pain around 7/10 between pain medication doses. Dylan asks fo r 3mg PO dilaudid medication q4hrs, as available. HYGIENE/INFECTION Patient/Family Target: Dylan will display no signs or symptoms of infection this shift. Progress to Target: Improving As evidenced by: All VS stable, all lap sites look clean, dry, and approximated. Dylan practiced good hand hygiene this shift. HEALTH PROMOTION Patient/Family Target: Dylan will take all her medications as prescribed. Progress to Target: Deteriorating As evidenced by: Dylan continued to refuse her night time dose of atenolol and torsemide this shift. She r efused atenolol as she believes she only has to take it when tachycardic and refused torsemi de because she didn't want to be up all night peeing. Re-educated Dylan on the indications o f these medications and the risks associated with not taking them. Dylan was still unwilling to take these medications. NURSING ASSESSMENT & RECOMMENDATIONS FORWARD Nursing Assessment of Patient Stability Risk: Moderately stable Recommendations Forward: Up ad jelena, ambulating in room. Voiding in the hat. Last BM 08/22 Pain management- scheduled Tylenol and 3 mg PO Dilaudid q4hr effective pain control. First dose of Warfarin given tonight. Bridging from Lovenox to home Warfarin dose. Barriers to discharge: DC 08/23 andoff - Loan Denton RN - 08/22/2019 6:18 PM PSTNursing Handoff [facility] IP NURSE HANDOFF: NURSING ASSESSMENT & RECOMMENDATIONS FORWARD Nursing Assessment of Patient Stability Risk: Moderately stable Recommendations Forward: Voiding, had BM, eating, ambulating, 3 mg PO Dilaudid effective pa in control Transitioning back to home warfarin tonight Barriers to discharge: DC tomorrow andoff - Shae Darling ea, RN - 08/22/2019 3:46 AM PSTNursing Handoff Patient Daily Goal: Dylan wants her pain managed to allow for sleep. (08/21/191929) [facility] IP NURSE HANDOFF: Jiang hospital course events: Dylan Romero is a 44 yo F with a his tory of HTN, DM2, R CHF, hypothyroidism, morbid obesity s/p laparoscopic antecolic RYGB 2017 , AMARA, bipolar disorder, depression, anxiety, history of stroke/TIA, DVT, and multiple herni a repairs with a known incarcerated ventral hernia containing bowel who presented with abdom inal pain. Ventral hernia repair 08/19. COMFORT/ANXIETY/BEHAVIOR Patient/Family Target: Dylan will report pain as well controlled this shift to allow for sleep. Progress to Target: Improving As evidenced by: Qamar reported severe pain after waking up that was relieved once oxycodone 5-10mg Q4h replaced with PO dilaudid 3mg Q4hr. She slept for approx 4-6 hours overnight and now wants t o ensure she stays on top of pain as it gets out of control easily. Lidocaine patches report ed as helpful, tylenol less so. NURSING ASSESSMENT & RECOMMENDATIONS FORWARD Nursing Assessment of Patient Stability Risk: Moderately stable Recommendations Forward: -Home cpap @ night -Pain controlled with PO dilaudid 3mg Q4hr PRN -VSS -Ad jelena, SBA in halls -REG diet Barriers to discharge: None identified andoff - Shanthi Darling RN - 08/21/2019 5:36 AM PSTNursing Handoff Patient Daily Goal: Dylan wants her pain to bel managed to allow for sleep. (08/20/192015) [facility] IP NURSE HANDOFF: Jiang hospital course events: Dylan Romero is a 44 yo F with a his tory of HTN, DM2, R CHF, hypothyroidism, morbid obesity s/p laparoscopic antecolic RYGB 2017 , AMARA, bipolar disorder, depression, anxiety, history of stroke/TIA, DVT, and multiple herni a repairs with a known incarcerated ventral hernia containing bowel who presented with abdom inal pain. Ventral hernia repair 08/19. COMFORT/ANXIETY/BEHAVIOR Patient/Family Target: Dylan will report pain as well controlled this shift to allow for sleep. Progress to Target: Improving As evidenced by: Qamar reported severe pain after waking up that was relieved once oxycodone 5-15mg Q4hr PRN was ordered. She slept for approx 4-6 hours overnight and now wants to ensure she stays on top of pain as it gets out of control easily. NURSING ASSESSMENT & RECOMMENDATIONS FORWARD Nursing Assessment of Patient Stability Risk: Moderately stable Recommendations Forward: -Home cpap @ night -Pain controlled with [id number] Q4hr PRN -VSS -Ad jelena -REG diet -Periwound skin of incisions reddened. Continue to monitor. Lidocaine patch placed on abdom en for severe tenderness. Barriers to discharge: Pain management lan of Care - Micah Nieto, PT - 08/20/2019 3:55 PM PST Physical Therapy Evaluation and Discharge 08/20/2019 3:55 PM Hospital Day: 2 [id number] DYLAN ROMERO Date of : 1975 Start of care: 08/18/2019 Referring/Attending Practitioner: Jones Woo MD Primary/Referral Diagnosis/ICD-9: K43.9 Ventral hernia without obstruction or gangrene E66.01 Severe Morbid obesity (HCC), BMI 88 K46.0 Incarcerated hernia Insurance: Payor[place] [facility] [place] Plan: [facility] / Product Type: Medicaid / Service period from: 08/20/2019 to 11/18/2019 Patient Class: Inpatient Time in: 1525 Time out: 1354 Patient was seen for a total of 29 minutes of direct one on one skilled physical therapy wh ich included initial evaluation and 8 minutes of therapeutic activity. Patient seen on 10A Present throughout session in addition to patient and therapist: no one Brief Hospital Course: "Dylan Romero is a 44 y.o. femalewith HTN, DM2, R CHF, hypoth yroidism, morbid obesity s/p laparoscopic antecolic RYGB 2017, AMARA, bipolar disorder, depres gilbert, anxiety, history of stroke/TIA, DVT, and multiple hernia repairs presents with ventral hernia. Now sp ventral hernia repair 08/19/2019 progressing well." (per MD Zamora note, 07/28) Relevant Precautions: Abdominal Indication for PT Evaluation: Instruction for safety with mobility following surgery or inj ury Past Medical History: Diagnosis Date Abdominal pain Allergic rhinitis Anemia Anxiety Bipolar disorder (HCC) Chronic wound infection of abdomen Depression Diverticulitis of colon Dizziness Hemorrhoids Hernia of abdominal wall Hypothyroidism Incisional hernia, incarcerated Insomnia Irregular periods Kidney stone Leaking of urine Leg sore Lymphedema Morbid obesity (HCC) Morbid obesity with body mass index of 70 and over in adult (HCC) Myalgia and myositis Nausea Neck pain Numbness Osteoarthritis of knee Palpitations Shortness of breath Sleep apnea TIA (transient ischemic attack) Past Surgical History: Procedure Laterality Date APPENDECTOMY, OPEN 2010 CHOLECYSTECTOMY, LAPAROSCOPIC INCISION AND DRAINAGE OF WOUND ABSCESS INCISIONAL HERNIA REPAIR 03/01/2015 LAP GASTRIC BYP, AND NISH-EN-Y GASTROENTEROSTOMY W/ NISH LIMB 150 CM OR LESS 8 TONSILLECTOMY AND ADENOIDECTOMY TREATMENT OF ANKLE FRACTURE UMBILICAL HERNIA REPAIR 2010 VENTRAL HERNIA REPAIR 10/2012 Living Environment: reports lives with mother in single level apartment, 7 steps to enter. Has her own apartment on main level, no steps to enter, but has been living with mom for add itional care. Equipment at home: has access to front wheeled walker, has hospital bed Prior Level of Function: independent with most mobility, intermittent assist for ADLs inclu ding katey-care, iADLs assisted by mother, sister, and daughter, does not drive, family drive s, infrequently uses public transportation, no falls. Patient / Family Goal: to go home, reduce pain Communication: appropriate, amharic Barriers: recurrent hernias Pain: 03/05 at incision site (declines abdominal binder) Vital signs: stable per observation Cognitive Screen Level of alertness: alert and awake Orientation: x4 Quality of responses: good, appropriate Command following: good, able to follow 2-step commands Judgment / safety awareness: Good, appears safe Physical Assessment ROM: within functional limits Strength: within functional limits, not formally tested, patient up ad-jelena in room Edema: not noted Skin Integrity: abdominal incision, otherwise appears intact Posture: good with gait Neurological Function Sensation: intact Muscle Tone: good Proprioception: NT Gross Motor: intact Fine Motor: intact Balance: Sitting static: normal, independent Sitting dynamic: normal, independent Standing static: supervision without AD Standing dynamic: supervision without AD Mobility & Transfers: Supine to sit: mod (I) via log roll, head of bed slightly elevated, intermittent use of ra ils Sit to supine: NT, left sitting edge of bed, requesting RN. Sit to stand: supervision without AD Stand to sit: supervision without AD Scoot: independent Stand pivot transfer: NT Gait: supervision for eval purposes x 250 feet without AD, no major gait deviations, good b ase of support, normal gait speed, no loss of balance. Stairs: supervision without AD up single step x 2 with rail on right, good foot clearance, no loss of balance or buckling. Hand held assist x1 down per patient request. Outcome Measure: [facility] BASIC MOBILITY Difficulty turning over in bed 4 - None - Modified Independent/Independent Difficulty sitting/standing from chair w/ arms 4 - None - Modified Independent/ Independent Difficulty moving from supine to sitting on edge of bed 4 - None - Modified Independent/Ind ependent Help needed moving from /to chair/wheelchair 4 - None - Modified Independent/Independent Help needed walking in hospital room 4 - None - Modified independent/Independent Help needed climbing 3-5 steps w/railing 3 - A Little - Minimal/Contact Guard Assist/Superv ision [facility] Basic Mobility Total Score 23 Interpretation of [facility] Short Form - Basic Mobility: CMS Modifier [...] CH 24 0% impaired, limited, or restricted *This score not officially observed but is implied based on other components of patient's m obility and may be an underestimate Treatment and education provided this date: reason for PT consult, abdominal precautions (h andout provided) including no bending, twisting, and lifting more than 10 pounds, pacing wit h activity, use of ice as needed, stair training. Ended session: Pt left sitting edge of bed at end of treatment with needs met, call bianca marie, nursing informed. ASSESSMENT: Dylan Romero is a 44 year old admitted on 08/18/2019 with prior level of functionally in dependent for all mobility with intermittent assitance for ADLs and iADLs from family. Patie nt presents here with history of multiple hernia repairs. Now sp ventral hernia repair 2019. Although Dylan presents with increased pain, she demonstrates good functional enduranc e and activity tolerance as well as good functional strength. Tolerated ambulating with PT a nd performing stairs with supervision. Recommend DC home with assist from family and follow up by HHPT when medically ready. Personal factors/Comorbidities: Behavior: None Learning Factors: None. Social Issues: Medical conditions and Multiple hospitalizations Medical Conditions Impacting Care: Multiple co-morbidities, Obesity, Physically decondition ed and Challenged integumentary system High - 3 or more personal factors. Body Systems Elements: Body structures & functions: Pain and Balance Activity limitations: Impaired transfers, Impaired gait, Difficulty with stairs and Difficu lty with activities of daily living Participation restrictions: Community activities and abdominal precautions. Moderate - 3 or more elements Clinical Presentation: Moderate - Evolving: Pain response Clinical decision making: Moderate Complexity: Clinical coordination of care Complexity: moderate Dylan's knowledge of disease process: Excellent The patient requires services that can be safely and effectively performed only by a quali fied therapist to address the aforementioned and highlighted problems and goals. ACTIVITY PLAN: *Nursing to re-assess per shift as needed.* - Lights on and curtains open during day hours. - Up to chair for meals or 3x/day without AD and 1 person assist. - Routine ambulation in hallway 3x/day without AD and 1 person assist. ~THANK YOU~ DISCHARGE RECOMMENDATIONS: Home with assist PRN;Continued PT at next level of care (HHPT ) Equipment recommendations: none, but does have optional front wheeled walker at home if nee ded from mother PLAN: DC acute inpatient PT. Micah Moon PT, DPT Should this patient discharge from the hospital prior to the next physical therapy treatmen t, this note shall serve as the discharge summary. andoff - Vinicisu Osorio RN - 08/20/2019 4:13 AM PSTNursing Handoff [facility] IP NURSE HANDOFF: Jiang hospital course events: Dylan Romero is a 44 yo F with a his tory of HTN, DM2, R CHF, hypothyroidism, morbid obesity s/p laparoscopic antecolic RYGB 2017 , AMARA, bipolar disorder, depression, anxiety, history of stroke/TIA, DVT, and multiple herni a repairs with a known incarcerated ventral hernia containing bowel who presented with abdom inal pain. Ventral hernia repair 08/19. COMFORT/ANXIETY/BEHAVIOR Patient/Family Target: Dylan will report pain as well controlled this shift. Progress to Target: Improving As evidenced by: Gisellas pain is well controlled with MEDICARE CONTACT SPECIALIST. She is tolerating well. Recommendations Forward: -Home cpap approved for use in hospital -Pain control with hydromorphone MEDICARE CONTACT SPECIALIST -Kilgore catheter in place Barriers to discharge: -MEDICARE CONTACT SPECIALIST for pain control -MIVF -Kilgore catheter p Note - Mary Theodore MD - 08/19/2019 6:26 PM PSTDate of Service: 08/19/2019 Attending Surgeon: Jones Woo MD Spring Encaser(s): Nicholas Theodore MD Preoperative Diagnosis: Incarcerated incisional ventral hernia. Postoperative Diagnosis: Incarcerated incisional ventral hernia. Procedure Performed: Primary ventral incisional hernia repair. Anesthesia: General plus local. Estimated Blood Loss: 25. Fluids: Crystalloid 1.3 L. Specimens: None. Implant: None. Complications: None apparent. Findings: A larger midline ventral defect containing fat and transverse colon, and a small er left lower quadrant defect containing preperitoneal fat. Upper midline fascial weakness and diastasis, but no other hernia defects noted. Indications: Ms. Romero is a 44-year-old female with a history of multiple abdominal surger ies, including prior hernia repairs and a laparoscopic Nish-en-Y in 2018 for morbid obesity, who was referred for a recurrent incisional ventral hernia with incarceration. She was jayna luated by Dr. Woo and determined to be an appropriate candidate for repair given her symptomatic nature of her hernias. An appropriate PARQ was held and an informed consent sig dolores for the planned procedure. Procedure In Detail: The patient was identified in the preoperative holding area and taken back to the operating room, where she was placed supine on the operating room table. Gener al endotracheal anesthesia was induced uneventfully. SCDs were in place and a Kilgore cathete r was inserted. Her abdomen was prepped and draped in the usual sterile fashion. An approp riate pre-surgical time-out was held, identifying the correct patient and procedure to be pe rformed. The patient received 3 g of IV Ancef for surgical prophylaxis. A midline incision was made with a 10 blade knife over the palpable hernia defect above her umbilicus. This incision was carried down through the subcutaneous tissues with electrocau pat. The defect of her fascial edges was apparent and continued dissection using a combina tion of blunt dissection and electrocautery was used to expose the fascial edges. The trans verse colon was adhered to the superior aspect of this midline defect and some tedious lysis of adhesions was required in order to safely bring it down off the abdominal wall. Once th e adhesions were cleared circumferentially around this fascial defect, attention was turned to the additional defect in her left lower quadrant. The defect here from a prior colostomy site appeared to contain just preperitoneal fat, but did have some intraabdominal adhesions to her small bowel. Additional lysis of adhesions was required here to safely bring down t he bowel and omentum from this area. Given that these 2 hernias had some distance between t hem, the decision was made to repair them separately. Therefore, an additional transverse i ncision was made over the smaller left lower quadrant defect. This incision was carried modesto n to the anterior fascia using a combination of blunt dissection and electrocautery. This f ascial defect was cleared circumferentially of adhesions both above and below the fascia. Given her morbid obesity and the complex nature of these hernias, the decision was made to not place mesh assuming these hernias would recur at some point requiring definitive repair after additional weight loss. We began repair of the left lower quadrant defect using a run eusebio #1 Maxon suture to close the posterior sheath through the midline incision. The anteri or sheath fascia here was then closed through our separate transverse left lower quadrant in cision using the same #1 Maxon. The midline defect was then closed with a running #1 Maxon superiorly and inferiorly meeting in the middle, where the suture was tied. She did have ad ditional diastasis superior to her fascial defect, but there was no additional defect noted. At this point, the hernia sac from her midline defect was removed with electrocautery and hemostasis was achieved. Both her incisions were then rinsed with normal saline. The skin of both incisions was then closed with a series of interrupted deep dermal 3-0 Vicryl suture s, a running 4-0 Monocryl subcuticular stitch, and Dermabond. The patient was then awoken from general anesthesia, having tolerated the procedure well. All sponge and needle counts were correct at the end of the case x2. Dr. Jones Woo was present or scrubbed for the duration of the case. MD Jones Rivera MD NK/MODL /[id number] I was present for the hernia repair JONES WOO MD [facility] [address] [place] [address] rief Op Note - Nicholas Daily MD - 08/19/2019 5:18 PM PST Date of procedure: 08/19/2019 Times Event Time In Procedure Start ThuAug 19, 2019 1458 Location: [facility] Surgeon(s) and Role: * Jones Woo MD - Primary Staff: Rabbit Fancier: Angelica Ga RN Scrub: ST Dwayne Rabbit Fancier Relief: Amy Vega RN Scrub Relief: ST Renetta It Security Engineer: Nicholas Theodore MD Pre Op Dx INCARCERATED INCISIONAL VENTRAL HERNIA CONTAINING BOWEL Post Op Dx: Same Procedure: Primary ventral incisional hernia repair Anesthesia: General + local Estimated Blood Loss: 25 mL Crystalloid: 1.3 L Specimens None Implants/Grafts None Complications: N/A Findings: two hernia defects identified and closed primarily separately, upper midline fasc ial weakness/diastasis but no additional defect superiorly NICHOLAS THEODORE MD andoff - Rubia Morgan RN - 08/19/2019 5:04 PM PSTMeets Phase I Discharge Criteria (Stable For Transfer): Major deviations/events or pertinent findings of katey-operative stay: VSS on RA, VILLATORO, AAOx4 . Two abdominal incisions with dermabond. Pt anxious; has spoken with her mom and a friend w elizabeth has helped. Anticipated post-op needs/devices/follow up: Advance diet and activity * No Diagnosis Codes entered * Surgical Procedure Planned - Actual Procedure Performed: Procedure(s): OPEN VENTRAL HERNIA REPAIR Anesthesia: General Length of procedure: In Room/Out of Room: * Missing case tracking time(s) * Surgeon(s) and Role: * Jones Woo MD - Primary OR positioning comments: Neuro: POSS Sedation Level: 1 Last pain medication given: Pain medication totals: see MAR Additional pain medication information: Functional Epidural: No MEDICARE CONTACT SPECIALIST: Yes Respiratory: RR: 18 , O2 Sat: 97 % , O2 Delivery: None (room air) Breath Sounds: Ex (amara with BIPAP) ALFRED: LLL: RUL: RLL: AMARA Yes Comment: no apneic breathing noticed Cardiac: BP: 128/73 HR: 74 GI: Nausea/Vomiting Status: No Signs/Symptoms: Interventions: Assessment: Comments: remains NPO : Last void: Kilgore draining Contact Name: Katalina Padilla Contact Number: [phone] (OK to leave message per patient) Family contacted: Yes Comment: Pt has spoken with her mom Belongings: in room andoff - Alberto Osorio RN - 08/19/2019 3:10 AM PSTNursing Handoff [facility] IP NURSE HANDOFF: Jiang hospital course events: Dylan Romero is a 44 yo F with a his tory of HTN, DM2, R CHF, hypothyroidism, morbid obesity s/p laparoscopic antecolic RYGB 2017 , AMARA, bipolar disorder, depression, anxiety, history of stroke/TIA, DVT, and multiple herni a repairs with a known incarcerated ventral hernia containing bowel who presented with abdom inal pain. She is scheduled to undergo ventral hernia repair tomorrow w Dr. Woo. COMFORT/ANXIETY/BEHAVIOR Patient/Family Target: Dylan will report pain as well controlled this shift. Progress to Target: Improving As evidenced by: Dylan arrived to the unit complaining of pain and nausea. 5 mg oxy had been given in the ED, but she reported her pain had been untouched by this dose. Upon assessment, she appeared anxious, was observed crying, and could not get comfortable in the bed. Another 5 mg PRN ox y was given plus 1 mg PRN xanax as well as her other night time medications, including quinton zine for nausea. After this she was able to get some sleep. Recommendations Forward: -Home cpap approved for use in hospital -Pain control with 10 mg PRN oxy -Nausea control with compazine and reglan. Pt allergic to zofran. Barriers to discharge: -Ventral hernia repair 08/19 D Teaching Notes - Jackie Asher MD - 08/18/2019 5:47 PM PSTJACKIE ASHER MD, Faculty Note: teaching note not needed ransfer Note - Gadiel Andrews PA-C - 08/18/2019 1:28 PM PSTReferring Provider Name: Dr. Gonzalez Referring Provider Specialty/Clinic: Gen surgery clinic Contact Number: [phone] to contact provider: Pager Callback required?: no Reason for callin44 y/o F w/ incarcerated hernia since January, presenting with acutely worsening pain, concern for ischemic hernia. Arriving by ambulance. Gadiel Hendricks PA-C Department of emergency medicine [phone] signed by Gadiel Hendricks PA-C at 08/18/2019 1:33 PM PSTComm Teresa Jaramillo - 08/18/2019 1:28 PM [id number] Just talked to Dr Woo, he req tx to [facility] due to pt having hernia surg BP 134/84 Sat 98% ra, HR 112 ETA 15 min. documented in this encounter Plan of Treatment +--------+ + + + + | Date | Type | Specialty | Care Team | Description | +--------+ + + + + | 04/04/ | Telephone-S | Surgery | Orquidea Cristobal, | | | 2019 | cheduled | | [facility] [address] | | | | | | [place], [place] | | | | | | [address] | | | | | | [phone] | | | | | | | [...] [facility] | [address] | [place] [address] | | | SERVICES, CORE | PARK [...] | + + + + + | [facility] | [address] | [place] [address] | | | SERVICES, CORE | PARK [...] | + + + + + | [facility] | [address] [facility] | [place] [address] | | | SERVICES, LYDIA | [address] [...] [facility] | [address] | [place], [place] | | | [facility] OF CARE | [facility] | [address] | | | TESTS | | | | + + + + + CAPILLARY BLOOD GLUCOSE (NO CHG), POC (08/19/2019 1:28 PM PST) + +-------+ + + + | Component | Value | Ref Range | Performed | Pathologist | | | | | At | Signature | + +-------+ + + + | BLOOD | 94 | 70 - 99 mg/dL | [facility] - | | | GLUCOSE, | | [...] [facility] | [address] | [place], [place] | | | [place] OF CARE | [address] | [address] | | | TESTS | | | [...] | + + + + + | [facility] | [address] | [place] [address] | | | SERVICES, | [address] | | | | TRANSFUSION MEDICINE [...] | + + + + + | [facility] | [address] | [place] [address] | | | SERVICES, | [address] | | | | TRANSFUSION MEDICINE [...] | | JEMAL, POC | | | [facility] | | [...] [facility] | [address] | [place], [place] | | | [facility] OF [facility] | [address] | [address] | | | TESTS | | | | + + + + + MADAY CEDILLO (08/18/2019 4:22 PM PST) + + + [...] | [facility] | | | GRA[facility] | Comstock performed by | | LABORATORY | | [...] | + + + + + | [facility] | [address] | [place] [address] | | | SERVICES, CORE | LESLY [...] [facility] | [address] | [place] [address] | | | SERVICES, | [address] [...] | + + + + + | [facility] | [address] | [place] [address] | | | SERVICES, CORE | LESLY [...] | + + + + + | [facility] | [address] | [place] [address] | | | SERVICES, CORE | PARK [...] | + + + + + | [facility] | [address] [facility] | [place] [address] | | | SERVICES, CORE | PARK [...] [facility] | [address] | [place] [address] | | | SERVICES, CORE | PARK [...] | | | LABORATORY | | | MICRONESIAN | | | SERVICES, | | | [...] | + + + + + | [facility] | [address] | [place] [address] | | | SERVICES, CORE | [address] | | | + + + + + ED INFORMATION EXCHANGE (08/18/2019 1:47 PM PST) + + | Specimen | + + | | + + + + + | Narrative | Performed At | + + + | COLLECTIVE?NOTIFICATION?08/18/2019 13:47?DYLAN ROMERO?MRN: | COLLECTIVE | | [id number] Criteria Met 5 Visits In 12 Months Has | MEDICAL | | Guidelines PDMP Security and Safety No recent Security Events | [employer] | | currently on file ED Care Guidelines from Results [facility] | | | Last Updated: 12/06/18 9:53 AM Care Coordination: Receiving | | | mental health services with [facility].? Please contact [facility] for | | | mental health concerns.? Sarah/Toni Centeno: [phone]? | | | Kishan: [phone].? These are guidelines and the provider | | | should exercise clinical judgment when providing care. Care | | | History Medical/Surgical 05/24/19 12:00 AM [facility] | | | Hospital PATIENT HAS AN APT ON 06/16/[address] CARDENAS. | | | 05/11/19 12:00 AM [facility] Patient is | | | currently established with [facility]. If patient is seen in | | | the ED during business hours. Please contact CHWs at [facility] | | | [facility]. Care Recommendation: This patient has had [...] 12:00 AM | | | [facility] PATIENT HAS A PCP APT TO ESTABLISH | | | CARE ON 10/04/18 @ 10:00AM WITH DR CARDENAS. Flags | | | [place] Disparity [place] - [place] ([place] | | | Disparity [place]) to help support Medicaid members with mental | | | illness. [facility] uses claims data with a 36-month [...] | are updated weekly. / Attributed By: [facility] ([facility]) / | | | Attributed On: 08/09/2019 Prescription Drug Report (12 Mo.) | | | Rx Details Fill Date Drug Description Qty. Prescriber CS MED | | | 2019-08-16 HYDROCODONE-ACETAMIN 5-325 MG 10 SAMANTHA LEPE DMD 2 16.667 | | | 2019-08-12 [...] GAGE MD 2 25 2019-06-15 | | | SUDOGEST 12 HOUR 120 MG CAPLET 30 JONES LANEY, JR. 0 | | | 2019-06-14 ALPRAZOLAM 1 MG TABLET 60 WINSTON JEFFAS 4 0 2019-06-03 | | | SUDOGEST 12 HOUR 120 MG CAPLET 30 JONES LANEY, JR. 0 2019-05-27 | | | PHENTERMINE 37.5 MG TABLET 90 ALY FRANKS MD 4 0 2019-05-24 | | | FENTANYL 12 MCG/HR PATCH 5 BETZY BALDWIN PA-C 2 0 2019-05-17 | | | SUDOGEST 12 HOUR 120 MG CAPLET 30 MARCO JEFFREY APPIAH-C 0 2019-05-17 | | | ALPRAZOLAM 1 MG TABLET 60 WINSTON JOSE 4 0 2019-05-14 OXYCODONE HCL 5 | | | MG TABLET 40 [place] UNIVERS 2 60 2019-05-12 FENTANYL 12 MCG/HR | | | PATCH 5 BETZY JAVIER BALDWIN 2 0 2019-04-18 ALPRAZOLAM 1 MG TABLET | | | 60 WINSTON JOSE 4 0 2019-04-13 BELBUCA [...] mo.) Facility Visits [facility] 1 [facility] and | | | [facility] 2 [facility] 7 Total 10 Note: | | | Visits indicate total known visits. Recent Emergency Department | | | Visit Summary Date Facility City State Type Diagnoses or Chief | | | Complaint Aug 18, 2019 [facility] [place] | | | [place] Emergency 10,800. amr Jun 25, 2019 [facility] | | | [place] Emergency [facility] (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 | | | Anxiety disorder, unspecified Cellulitis of abdominal wall | | | Acute embolism and thrombosis of deep veins of r up extrem | | | Nicotine dependence, unspecified, uncomplicated Migraine, unsp, | | | not intractable, without status migrainosus Unspecified | | | abdominal pain Allergy status to oth drug/meds/biol subst status | | | Other [place] [facility] drug therapy Allergy status to | | | penicillin Jun 19, 2019 [facility] [place] Emergency | | | [facility] (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 Prsnl hx of [...] Jun 01, 2019 | | | [facility] [place] Headache Allergy | | | status to penicillin Anxiety disorder, unspecified | | | Obesity, unspecified Migraine, unsp, not intractable, without | | | status migrainosus Other [place] [facility] ([facility] drug therapy | | | Allergy status to oth drug/meds/biol subst status [facility] | | | (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 [facility] (current) use of | | | aspirin May 23, 2019 [facility] [place] | | | Anxiety disorder, unspecified Acute embolism and thrombosis of | | | deep veins of r up extrem Allergy status to penicillin | | | Other [place] [facility] drug therapy Pain in right arm | | | [facility] (current) use of aspirin Allergy status to oth | | | drug/meds/biol subst status May 20, [address] [facility] | | | 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 Emergency | | | 10,800. A303 18,400. Bariatric surgery status 18,400. | | | Ventral hernia without obstruction or gangrene 18,400. Nausea | | | with vomiting, unspecified 18,400. Unspecified abdominal pain | | | 18,400. Nonspecific mesenteric lymphadenitis May 10, 2019 [facility] 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. [place] Emergency RIGHT LEG PAIN DUE TO FALL | | | Strain of unsp musc/tend at lower leg level, right leg, init | | | Aug 22, 2018 [facility] [place] | | | [place] [facility] drug therapy Upper abdominal pain, | | | unspecified Bariatric surgery status Allergy status to oth | | | drug/meds/biol subst status Noninfective gastroenteritis and | | | colitis, unspecified Obesity, unspecified Anxiety | | | disorder, unspecified [facility] (current) use of aspirin | | | Allergy status to penicillin Personal history of pulmonary | | | embolism Recent Inpatient Visit Summary No recorded | | | inpatient visits. Care Team Provider Specialty Phone Fax Service | | | Dates Eagle Nino CHW Community Health Worker | | | Jul 03, 2019 - Current JONES DAVISON D.M.D. Dentist: | | | Whale Fisherman May 23, 2019 - | | | Current Rob Tilley Metallurgical Lab Technician/Post Hole Digger ([id number]) | | | [phone] Mar 27, 2018 - Current Bernard Cardenas MD Internal | | | Medicine: Pulmonary Disease Aug 23, 2018 - Current | | | Zank Portal This patient has registered at the [facility] | | | [facility] Emergency Department For more information | | | visit: | | | [email or web address] | | | [email or web address] a PLEASE NOTE: 1. Any care recommendations [...] or completeness of information provided. ? 2020 [employer] | | | Seat 14A. - [email or web address] | | + + + + + [...] on fileED Care Guidelines | | from [facility] [place] Updated: 12/06/18 9:53 AM Care Coordination:Receiving | | mental health services with [facility].? Please contact [facility] for mental health | | concerns.? Sarah/Toni Centeno: [phone]? Kishan: [phone].?These are | | guidelines and the provider should exercise clinical judgment when providing care.Care | | HistoryMedical/Ywtdshpw69/29/19 12:00 AM [facility] PATIENT HAS AN APT | | ON 06/16/[address] CARDENAS.05/11/19 12:00 AM [facility] Patient is | | currently established with [facility]. If patient is seen in the ED during | | business hours. Please contact CHWs at [facility].Care Recommendation:This | | patient has had 5 [...] when providing | | care.08/23/18 12:00 AM [facility] PATIENT HAS A PCP APT TO ESTABLISH CARE | | ON 10/04/18 @ 10:00AM WITH DR CARDENAS. Flags [place] Disparity Measure - [place] has | | developed a flag ([place] Disparity [place]) to help support Medicaid members with | | mental illness. [facility] uses claims data with a 36-month [...] | | updated weekly. / Attributed By: [place] [facility] ([facility]) / Attributed On: | | 08/09/2019 Prescription Drug Report (12 Mo.)Rx DetailsFill Date Drug Description Qty. | | Prescriber MED 2019-08-16 HYDROCODONE-ACETAMIN 5-325 MG 10 SAMANTHA LEPE, DMD 2 16.667 | | 2019-08-12 ALPRAZOLAM 1 MG TABLET 90 WINSTON JEFFAS 4 0 2019-08-02 SUDAFED 12HR 120 MG | | CAPLET 30 JONES LANEY, JR. 0 2019-07-26 FENTANYL 12 MCG/HR PATCH 10 BETZY BALDWIN | | JAVIER 2 0 2019-07-12 ALPRAZOLAM 1 MG TABLET 60 WINSTON JEFFAS 4 0 2019-07-10 SUDOGEST 12 | | HOUR 120 MG CAPLET 30 JONES DAVISON JR. 0 2019-06-28 FENTANYL 12 MCG/HR PATCH 10 | | BETZY BALDWIN PA-C 2 0 2019-06-27 SUDOGEST 12 HOUR 120 MG CAPLET 30 JONES LANEY, | | JR. 0 2019-06-26 HYDROCODONE-ACETAMIN 5-325 MG 10 JAYRO GAGE MD 2 2019-06-15 | | SUDOGEST 12 HOUR 120 [...] 2019-05-17 ALPRAZOLAM 1 MG TABLET 60 WINSTON JEFFLIANG 4 0 | | 2019-05-14 OXYCODONE HCL [...] (12 mo.)Facility Visits [facility] 1 [facility] | [facility] 2 [facility] 7 Total 10 Note: Visits indicate | | total known visits. Recent Emergency Department Visit SummaryDate Facility City State | | Type Diagnoses or Chief Complaint Aug 18, 2019 [facility] | | [place] Emergency 10,800. amr Jun 25, [address] [facility] [place] Emergency | | [facility] (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 Anxiety disorder, unspecified | | Cellulitis of abdominal wall Acute embolism and thrombosis of deep veins of r up | | extrem Nicotine dependence, unspecified, uncomplicated Migraine, unsp, not | | intractable, without status migrainosus Unspecified abdominal pain Allergy status | | to oth drug/meds/biol subst status [facility] [place] [facility] drug therapy Allergy | | status to penicillin Jun 19, [address] [facility] 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 | | [place] Emergency Anxiety disorder, unspecified Acute embolism and thrombosis of | | deep veins of r up extrem Allergy status to penicillin Other termite control servicer (current) | | drug therapy Pain in right arm [facility] (current) use of aspirin Allergy | | status to oth drug/meds/biol subst status May 20, 2019 [facility] 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 Emergency | | 10,800. A303 18,400. Bariatric surgery status 18,400. Ventral hernia without | | obstruction or gangrene 18,400. Nausea with vomiting, unspecified 18,400. | | Unspecified abdominal pain 18,400. Nonspecific mesenteric lymphadenitis May 10, 2019 | | [facility] 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 [place] Emergency RIGHT LEG PAIN DUE TO FALL | | Strain of unsp musc/tend at lower leg level, right leg, init Aug 22, [address] [facility] [place] [facility] drug therapy Upper | | abdominal pain, unspecified Bariatric surgery status Allergy status to oth | | drug/meds/biol subst status Noninfective gastroenteritis and colitis, unspecified | | Obesity, unspecified Anxiety disorder, unspecified [facility] (current) use of | | aspirin Allergy status to penicillin Personal history of pulmonary embolism | | Recent Inpatient Visit SummaryNo recorded inpatient visits. Care TeamProvider Specialty | | Phone Fax Service Dates Eagle Nino CHW Community Health Worker | | Jul 03, 2019 - Current JONES DAVISON D.M.D. Dentist: Whale Fisherman ([phone] | | [phone] May 23, 2019 - Current Rob Tilley Metallurgical Lab Technician/Care | | Coordinator Mar 27, 2018 - Current Bernard Cardenas MD Internal Medicine: | | Pulmonary Disease Aug 23, 2018 - Current Zank [facility] patient has registered | | at the [facility] and [facility] Emergency Department For more information | | visit: [email or web address] | | PLEASE NOTE: 1. Any care [...] completeness of information | | provided.? 2020 [employer]. 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 [place] | | [facility] (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 | | Prsnl [...] unspecified | | | |Jun 01, 2019 [facility] [place] | | Headache | | Allergy status to penicillin | | Anxiety disorder, unspecified | | Obesity, unspecified | | Migraine, unsp, not intractable, without status migrainosus | | Other termite control servicer (current) drug therapy | | Allergy status to oth drug/meds/biol subst status | | termite control servicer (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 | | [facility] (current) use of aspirin | | | |May 23, 2019 [facility] [place] | | Anxiety disorder, unspecified | | Acute embolism and thrombosis of deep veins of r up extrem | | Allergy status to penicillin | | [facility] drug therapy | | Pain in right arm | | [facility] (current) use of aspirin | | Allergy status to oth drug/meds/biol subst status | | | |May 20, 2019 [facility] 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 Emergency | | 10,800. A303 | | 18,400. Bariatric surgery status | | 18,400. Ventral hernia without obstruction or gangrene | | 18,400. Nausea with vomiting, unspecified | | 18,400. Unspecified abdominal pain | | 18,400. Nonspecific mesenteric lymphadenitis | | | |May 10, 2019 [facility] 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 [place] Emergency | | RIGHT LEG PAIN DUE TO FALL | | Strain of unsp musc/tend at lower leg level, right leg, init | | | |Aug 22, 2018 [facility] [place] | | Other termite control servicer (current) drug therapy | | Upper abdominal pain, unspecified | | Bariatric surgery status | | Allergy status to oth drug/meds/biol subst status | | Noninfective gastroenteritis and colitis, unspecified | | Obesity, unspecified | | Anxiety disorder, unspecified | | [facility] (current) use of aspirin | | Allergy status to penicillin | | Personal history of pulmonary embolism | | | | | | | |Recent Inpatient Visit Summary | |No recorded inpatient visits. | | | |Care Team | |Provider Specialty Phone Fax Service Dates | |Eagle Nino CHW Community Health Worker Jul 03, 2019 - Current | |JONES DAVISON D.M.D. Dentist: Whale Fisherman May 23, 2 019 - Current | |Rob Tilley Metallurgical Lab Technician/Post Hole Digger Mar 27, 2018 - Current | |Bernard Cardenas MD Internal Medicine: Pulmonary Disease Aug 23, 2018 - Current | | | |Zank Portal | |This patient has registered at the [facility] t | |For more information visit: [email or web address] | |PLEASE NOTE: | | 1. Any [...] information provided. | | | |? 2020 [employer]. - [email or web address] | + + + + + + + | Performing | Address | City/State/Zipcode | Phone Number | | Organization | | | | + + + + + | [employer] | [address] | [place], [place] | [phone] | | [employer] | [address] | [address] | | + + + + + documented in this encounter Visit Diagnoses + + | Diagnosis | + + | Ventral hernia without obstruction or gangrene - Primary Ventral hernia, unspecified, | | without mention of obstruction or gangrene | + + | Severe Morbid obesity (HCC), BMI 88 Morbid obesity | + + | Incarcerated hernia Hernia of unspecified site, with obstruction | + + documented in this encounter Administered Medications + +--------+ + +------+------+ | Medication Order | MAR | Action | Dose | Rate | Site | | | Action | Date | | | | + +--------+ + +------+------+ | acetaminophen (TYLENOL) tablet | Given | 08/20/19 | 1,000 mg | | | | 1,000 mg 1,000 mg, oral, EVERY 6 | | 20 11:12 | | | | | HOURS NEEDED, Starting Jasmyne | | AM PST | | | | | 08/18/19 at 1821, Until Sat | | | | | | | 08/20/19 at 1928, mild pain | | | | | | + +--------+ + +------+------+ +-------+ + +---+---+ | Given | 08/18/19 | 1,000 mg | | | | | 20 6:59 | | | | | | PM [...] +---+---+ +-------+ + +---+---+ | Given | 08/23/19 [...] | | DAILY, First dose on Jasmyne 08/18/19 | | AM PST | | | [...] | enoxaparin (LOVENOX) injection | Given | 08/21/19 | 120 mg | | Abdomen | | 120 mg 120 mg (rounded from | | 20 8:03 | | | | | 120.2 mg = 1 mg/kg | | AM PST | | | | | 120.2 kg), subcutaneous, EVERY | | | | | | | 12 HOURS, First dose on Sun | | | | | | | 08/21/19 at 0900, Until | | | | | | | Discontinued | | | | | | + +-------+ +--------+---+---------+ +---+---+ | | | +---+---+ [...] | enoxaparin (LOVENOX) injection | Given | 08/20/19 | 40 mg | | Abdomen | | 40 mg 40 mg, subcutaneous, EVERY | | 20 9:22 | | | | | EVENING, 1 dose, First dose on | | PM PST | | | | | 08/20/19 at 2100 | | | | | | + +-------+ +-------+---+---------+ +---+---+ | | | +---+---+ + +-------+ +-------+---+---------+ | enoxaparin (LOVENOX) injection | Given | 08/21/19 | 40 mg | | Abdomen | | 40 mg 40 mg, subcutaneous, EVERY | | 20 9:25 | | | | | 12 HOURS, First dose (after last | | PM PST | | | | | modification) on 08/21/19 at | | | | | | | 2100, Until Discontinued | | | | | | + +-------+ +-------+---+---------+ +---+---+ | | | +---+---+ + +-------+ +--------+---+---+ | HYDROmorphone (DILAUDID) | Given | 08/21/19 | 0.2 mg | | | | injection 0.2 mg 0.2 mg, | | 20 8:00 | | | | | intravenous, EVERY 3 HOURS | | AM PST | | | | | NEEDED, Starting 08/20/19 at | | | | | | | 0838, Until 08/21/19 at 0848, | | | | | | | severe pain | | | | | | + +-------+ +--------+---+---+ +-------+ +--------+---+---+ | Given | 08/20/19 | 0.2 mg | | | | | 20 7:54 | | | | | | PM PST | | | | +-------+ +--------+---+---+ | Given | 08/20/19 | 0.2 mg | | | | | 20 2:17 | | | | | | PM PST | | | | +-------+ +--------+---+---+ +---+---+ | | | +---+---+ + +-------+ +--------+---+---+ | HYDROmorphone (DILAUDID) | Given | 08/19/19 | 0.2 mg | | | | injection 0.2-0.5 mg 0.2-0.5 mg, | | 20 6:55 | | | | | intravenous, POSTPROCEDURE PRN, | | PM PST | | | | | Starting Thu08/19/19 at 1732, | | | | | | | Until Thu08/19/19 at 1937, | | | | | | | moderate pain while in Phase I | | | | | | | Recovery, if unable to take PO | | | | | | + +-------+ +--------+---+---+ +-------+ +--------+---+---+ | Given | 08/19/19 | 0.3 mg | | | | | 20 6:38 | | | | | | PM PST | | | | +-------+ +--------+---+---+ | Given | 08/19/19 | 0.2 mg | | | | | 20 6:03 | | | | | | PM PST | | | | +-------+ +--------+---+---+ +---+---+ | | | +---+---+ + +-------+ +--------+---+---+ | HYDROmorphone (DILAUDID) | Given | 08/19/19 | 0.3 mg | | | | injection 0.3 mg 0.3 mg, | | 20 11:37 | | | | | intravenous, ONCE PRN (IPROC), 1 | | AM PST | | | | | dose, Starting Thu08/19/19 at | | | | | | | 1126, Until Thu08/19/19 at 1137, | | | | | | | severe pain | | | | | | + +-------+ +--------+---+---+ +---+---+ | | | +---+---+ + +---------+ +--------+---+---+ | HYDROmorphone (DILAUDID) | IV Push | 08/18/19 | 0.5 mg | | | | injection 0.5 mg 0.5 mg, | | 20 4:03 | | | | | intravenous, ONCE, 1 dose, Jasmyne | | PM PST | | | | | 08/18/19 at 1600 | | | | | | + +---------+ +--------+---+---+ +---+---+ | | | +---+---+ + +---------+ +--------+---+---+ | HYDROmorphone (DILAUDID) | IV Push | 08/18/19 | 0.5 mg | | | | injection 0.5 mg 0.5 mg, | | 20 5:24 | | | | | intravenous, ONCE, 1 dose, Jasmyne | | PM PST | | | | | 08/18/19 at 1745 | | | | | | + [...] | +---+---+ + + + +---+---+---+ | HYDROmorphone 0.5 mg/mL MEDICARE CONTACT SPECIALIST | Rate/Dos | 08/20/19 | | | | | (ADULT STANDARD DOSE) in 0.9 % | e Verify | 20 4:12 | | | | | NaCl MEDICARE CONTACT SPECIALIST Dose: 0.2 mg, Lockout | | AM PST | | | | | Interval: 7 Minutes, Continuous | | | | | | | Rate: 0 mg/hr, intravenous, | | | | | | | CONTINUOUS, Starting 08/19/19 | | | | | | | at 1830, Until 08/20/19 at | | | | | | | 0838 | | | | | | + + + +---+---+---+ + + +---+---+---+ | Rate/Dose Verify | 08/19/19 | | | | | | 20 8:52 | | | | | | PM PST | | | | + + +---+---+---+ | New Bag | 08/19/19 | | | | | | 20 6:58 | | | | | | PM PST | | | | + + +---+---+---+ + +---+ | | | + +---+ | HYDROmorphone in NS 25 mg/50 mL | | | (0.5 mg/mL) sPCA 1 dose, | | | Starting 08/19/19 at 1835, | | | Until 08/19/19 at 1858 | | + +---+ | | | + +---+ + +---------+ + +---+---+ | lactated ringers (LR) bolus | New Bag | 08/18/19 | 1,000 mL | | | | 1,000 mL 1,000 mL, intravenous, | | 20 4:02 | | | | | ONCE, 1 dose, [facility] 08/18/19 at 1530 | | PM PST | | | | + +---------+ + +---+---+ +---+---+ | | | +---+---+ + + + + + +---+ | lactated ringers (LR) infusion | Rate/Dos | 08/20/19 | 75 mL/hr | 75 mL/hr | | | 75 mL/hr, intravenous, | e Verify | 20 8:55 | | | | | CONTINUOUS, Starting Jasmyne 08/18/19 | | AM PST | | | | | at 1830, Until 08/20/19 at | | | | | | | 1053 | | | | | | + + + + + +---+ + + + + +---+ | Rate/Dose Verify | 08/20/19 | 75 mL/hr | 75 mL/hr | | | | 20 4:05 | | | | | | AM PST | | | | + + + + +---+ | Rate/Dose Verify | 08/20/19 | 75 mL/hr | 75 mL/hr | | | | 20 12:03 | | | | | | AM PST | | | | + + + + +---+ +---+---+ | | | [...] | | | | First dose on [facility] 08/18/19 at | | PM PST [...] | oxyCODONE (immediate release) | Given | 08/20/19 | 5 mg | | | | (ROXICODONE) tablet 5 mg 5 mg, | | 20 2:59 | | | | | oral, ONCE, 1 dose, [facility] 08/20/19 | | PM PST | | | | | at 1530 | | | | | | + +-------+ +------+---+---+ +---+---+ | | | +---+---+ + +-------+ +------+---+---+ | oxyCODONE (immediate release) | Given | 08/21/19 | 5 mg | | | | (ROXICODONE) tablet 5 mg 5 mg, | | 20 3:29 | | | | | oral, ONCE, 1 dose, [facility] 08/21/19 | | PM PST | | | | | at 1600 | | | | | | + +-------+ +------+---+---+ +---+---+ | | | +---+---+ + +-------+ +------+---+---+ | oxyCODONE (immediate release) | Given | 08/18/19 | 5 mg | | | | (ROXICODONE) tablet 5-10 mg 5-10 | | 20 9:06 | | | | | mg, oral, EVERY 6 HOURS | | PM PST | | | | | NEEDED, Starting Jasmyne 08/18/19 at | | | | | | | 1822, Until Jasmyne 08/18/19 at 2220, | | | | | | | moderate pain, unresponsive to | | | | | | | non-opioid medication | | | | | | + +-------+ +------+---+---+ +-------+ +------+---+---+ | Given | 08/18/19 | 5 mg | | | | | 20 7:15 | | | | | | PM PST | | | | +-------+ +------+---+---+ +---+---+ | | | +---+---+ + +-------+ +-------+---+---+ | oxyCODONE (immediate release) | Given | 08/20/19 | 10 mg | | | | (ROXICODONE) tablet 5-10 mg 5-10 | | 20 4:14 | | | | | mg, oral, EVERY 4 HOURS | | PM PST | | | | | NEEDED, Starting Jasmyne 08/18/19 at | | | | | | | 2230, Until 08/20/19 at 1928, | | | | | | | moderate pain, unresponsive to | | | | | | | non-opioid medication | | | | | | + +-------+ +-------+---+---+ +-------+ +-------+---+---+ | Given | 08/20/19 | 10 mg | | | | | 20 12:38 | | | | | | PM PST | | | | +-------+ +-------+---+---+ | Given | 08/20/19 | 10 mg | | | | | 20 9:16 | | | | | | AM PST | | | | +-------+ +-------+---+---+ +---+---+ | | | +---+---+ + +-------+ +-------+---+---+ | oxyCODONE (immediate release) | Given | 08/21/19 | 10 mg | | | | (ROXICODONE) tablet 5-10 mg 5-10 | | 20 4:42 | | | | | mg, oral, EVERY 4 HOURS | | PM PST | | | | | NEEDED, Starting 08/21/19 at | | | | | | | 1004, Until 08/21/19 at 2030, | | | | | | | moderate pain | | | | | | + +-------+ +-------+---+---+ +-------+ +-------+---+---+ | Given | 08/21/19 | 10 mg | | | | | 20 12:50 | | | | | | PM PST | | | | +-------+ +-------+---+---+ +---+---+ | | | +---+---+ + +-------+ +-------+---+---+ | oxyCODONE (immediate release) | Given | 08/21/19 | 15 mg | | | | (ROXICODONE) tablet 5-15 mg 5-15 | | 20 9:08 | | | | | mg, oral, EVERY 4 HOURS | | AM PST | | | | | NEEDED, Starting 08/20/19 at | | | | | | | 2030, Until 08/21/19 at 1004, | | | | | | | moderate pain | | | | | | + +-------+ +-------+---+---+ +-------+ +-------+---+---+ | Given | 08/21/19 | 15 mg | | | | | 20 5:27 | | | | | | AM PST | | | | +-------+ +-------+---+---+ | Given | 08/21/19 | 15 mg | | | | | 20 1:31 | | | | | | AM PST | | | | +-------+ +-------+---+---+ + +---+ | | | + +---+ | oxyCODONE (immediate release) | | | (ROXICODONE) tablet 1 dose, | | | Starting [facility] 08/18/19 at 1853, | | | Until [facility] 08/18/19 at 1915 | | + +---+ | | | + +---+ + +-------+ +-------+---+---+ | PARoxetine (PAXIL) tablet 40 mg | Given | 08/22/19 | 40 mg | | | | 40 mg, oral, AT BEDTIME, First | | 20 8:26 | | | | | dose on [facility] 08/18/19 at 2200, | | PM PST | [...] | | +---+---+ + +---------+ +------+---+---+ | prochlorperazine (COMPAZINE) | IV Push | 08/18/19 | 5 mg | | | | injection 5 mg 5 mg, | | 20 4:03 | | | | | intravenous, ONCE, 1 dose, Jasmyne | | PM PST | | | | | 08/18/19 at 1600 | | | | | | + +---------+ +------+---+---+ +---+---+ | | | +---+---+ + +-------+ +------+---+---+ | prochlorperazine (COMPAZINE) | Given | 08/23/19 | 5 mg | | | | injection 5 mg 5 mg, | | 20 9:00 | | | | | intravenous, EVERY 6 HOURS | | AM PST | | | | | NEEDED, Starting Jasmyne 08/18/19 at | | | | | | [...] First dose on Thu08/18/19 at | | AM PST | [...]
--- OUTSIDE RECORDS SUMMARY | ~2020-03-26 | XMS | Encounter Summary ---
Demographics + + + | Address | [address] | | | [place] [address] | + + + | Home Phone [...] [place], [place] | | | | | [address] | | + + + + + | Ellie Vang | ECON | Unknown | | + + + + + Care Team Providers + +------+ + | Care Bundler Seasonal Greenery Name | Role | Phone | + [...] at [facility] | MD [address] | stop any | | | | [address] | [place], [place] | medications? ) | | | | [facility] | [address] | | | | | and [place], | [phone] | | | | | [address] | | | | | | [place], [place] | | | | | | [address] | | | | | | [phone] | | | +--------+ + + + [...] | | 2020 | sherrill | | BILINGUAL SOCIAL WORKER [address] | | | | | | [place] | | | | | | [address] | | | | | | [phone] | | | | | | | | +--------+ + + + + documented as of this encounter Visit Diagnoses Not on filedocumented in this encounter"
--- OUTSIDE RECORDS SUMMARY | ~2020-03-26 | XMS | Encounter Summary ---
Demographics + + + | Address | [address] | | | [place] [address] | + + + | Home Phone [...] + + + | Author | [facility] | | | and Jeffana | + + + | Organization | [facility] | | [...] Team Providers + +------+ + | Care Collator Hand Name | Role | Phone | + +------+ + PCP | Unavailable | + +------+ + Encounter Details +--------+ + + + + | Date | Type | Department | Care Team | Description | +--------+ + + + + | 12/07/ | Orders Only | [facility] | Conversion | | | 2018 | | NEPHROLOGY [place] | Transaction, | | | | | [address] | Provider Unknown | | | | | [address] [place], [place] | | | | | | [address] | (Fax) | | | | | [phone] | | | +--------+ + + + [...] | | | | | | [place] [id number] | | | | | | [phone] | | | | | | | | +--------+ + + + + | 04/18/ | Procedure | Neurology | Camille De La Paz, | | | 2019 | visit | | MD Saumya MOE | | | | | | [place] | | | | | | [place] [id number] | | | | | | [phone] | | | | | | | | +--------+ + + + + documented as of this encounter Procedures + +--------+ + + + | Procedure Name | Priori | Date/Time | Associated Diagnosis | Comments | | | ty | | | | + +--------+ + + + | EXTERNAL LAB: CBC | Routin | 12/07/2018 | | Results for this | | | e | 12:25 PM | | procedure are in the | | | | PDT | | results section. | + +--------+ + + + | PARATHYROID HORMONE, | Routin | 12/07/2018 | | Results for this | | INTACT | e | 12:25 PM | | procedure are in the | | | | PDT | | results section. | + +--------+ + + + | MAGNESIUM | Routin | 12/07/2018 | | Results for this | | | e | 12:25 PM | | procedure are in the | | | | PDT | | results section. | + +--------+ + + + | RENAL FUNCTION PANEL | Routin | 12/07/2018 | | Results for this | | | e | 12:25 PM | | procedure are in the | | | | PDT | | results section. | + +--------+ + + + | URIC ACID | Routin | 12/07/2018 | | Results for this | | | e | 12:00 AM | | procedure are in the | | | | PDT | | results section. | + +--------+ + + + documented in this encounter Results External Lab: CBC (12/07/2018 12:25 PM PDT) + + + + + + | Component | Value | Ref Range | Performed | Pathologist | | | | | At | Signature | + + + + + + | WBC | 11.1 (A) | 4.5 - 11.0 10 | EXTERNAL | | | | | | LAB | | + + + + + + | Non- | 5.00 | 3.8 - 5.1 10 | EXTERNAL | | | Red Blood | | | LAB | | | Cells | | | | | | Counted | | | | | + + + + + + | Hemoglobin | 14.6 | 12.0 - 16.0 | EXTERNAL | | | | | | LAB | | + + + + + + | Hematocrit, | 44.3 | 35 - 45 % | EXTERNAL | | | POC | | | LAB | | + + + + + + | MCV | 88.6 | 81 - 99 fL | EXTERNAL [...] + + + + | Platelet | 330 | 140 - 440 K/ L | EXTERNAL | | | Count | | | LAB | | | Plasma | | | | | + + + + + + | RDW-CV | 13.3 | 10.5 - 15.0 % | EXTERNAL [...] + + + | % Segmented | 57.1 | 39 - 80 % | EXTERNAL | | | | | | LAB | | | Neutrophils | | | | | + + + + + + | % | 31.4 | 24 - 44 % | EXTERNAL | | | Lymphocytes | | | LAB | | + + + + + + | % Monocytes | 8.5 | 0 - 12 % | EXTERNAL | | | | | | LAB | | + + + + + + | % | 2.2 | 0 - 6 % | EXTERNAL | | | Eosinophils | | | LAB | | + + + + + + | % Basophils | 0.8 | 0 - 2 % | EXTERNAL [...] + +---------+ + + Parathyroid Hormone, Intact (12/07/2018 12:25 PM PDT) + + + + + + | Component | Value | Ref Range | Performed | Pathologist | | | | | At | Signature | + + + + + + | PTH INTACT | 308.8 (A) | 15 - 65 pg/mL | [...] | | + +---------+ + + Magnesium (12/07/2018 12:25 PM PDT) + +-------+ + + + [...] + +---------+ + + Renal Function Panel (12/07/2018 12:25 PM PDT) + +-------+ + + + | Component | Value | Ref Range | Performed | Pathologist | | | | | At | Signature | + +-------+ + + + | Glucose, | 84 | 70 - 100 mg/dL | EXTERNAL | | | Fasting | | | LAB | | + +-------+ + + + | BUN | 12 | 6 - 23 mg/dL | EXTERNAL | | | | | | LAB | | + +-------+ + + + | Creatinine | 0.88 | 0.60 - 1.35 | EXTERNAL | | | | | mg/dL | LAB | | + +-------+ + + + | PHOSPHORUS | 3.6 | 2.5 - 5.0 mg/dL | EXTERNAL | | | | | | LAB | | + +-------+ + + + | Albumin | 3.9 | 3.5 - 5.0 | EXTERNAL | | | | | | LAB | | + +-------+ + + + | Na | 141 | 132 - 143 | EXTERNAL | | | | | mmol/L | LAB | | + +-------+ + + + | K | 4.2 | 3.6 - 5.1 | EXTERNAL | | | | | mmol/L | LAB | | + +-------+ + + + | Cl | 100 | 95 - 112 mmol/L | EXTERNAL | | | | | | LAB | | + +-------+ + + + | CO2 | 31 | 19 - 31 mmol/L | EXTERNAL | | | | | | LAB | | + +-------+ + + + | Anion Gap | 14.2 | 7 - 21 mmol/L | EXTERNAL | | | | | | LAB | | + +-------+ + + + | eGFR, | | | EXTERNAL | | | non- | | | LAB | | | Q[place] | | | | | + +-------+ + + + | Phosphorus, | | | EXTERNAL | | | Inorganic | | | LAB | | + +-------+ + + + | BUN/Creatin | 13.6 | 6.0 - 28.6 | EXTERNAL | | | ine Ratio | | | LAB | | + +-------+ + + + | Calcium | 9.6 | 8.5 - 10.3 | EXTERNAL | | | | | mg/dL | LAB | | + +-------+ + + + | Estimated | 71 | 60 - 140 mg/dL | EXTERNAL [...] | + +---------+ + + Uric Acid (12/07/2018 12:00 AM PDT) + +---------+ + + + | Component | Value | Ref Range | Performed | Pathologist | | | | | At | Signature | + +---------+ + + + | Uric Acid | 8.0 (A) | 2.3 - 6.6 | EXTERNAL [...]
--- OUTSIDE RECORDS SUMMARY | ~2020-03-26 | XMS | Encounter Summary ---
Demographics + + + | Address | [address] | | | [place] [address] | + + + | Home Phone [...] [place], [place] | | | | | [address] | | + + + + + | Ellie Vang | ECON | Unknown | | + + + + + Care Team Providers + +------+ + | Care Gas Main Fitter Helper Name | Role | Phone | + +------+ + | Fadi Goodrich DO | PCP | | + +------+ + Encounter Details +--------+------+ + + + | Date | Type | Department | Care Team | Description | +--------+------+ + + + | 11/20/ | Lab | Laboratory at [facility] | | Morbid obesity with | | 2017 | | [address] | | BMI of 70 and over, | | | [facility] | | adult ([facility]); | | | | and Healing, | | 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[address] | | 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[place], [place]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 ([facility]); | | | | [address] | | Type 2 diabetes | | | | [phone] | | mellitus without | | | | | | complication, with | | | | | | long-term current | | | | | | use of insulin ([facility]) | +--------+------+ + + + Social [...] | | 2020 | cheduled | | OPTICAL GOODS WORKER [address] | | | | | | [place], [place] | | | | | | [address] | | | | | | [phone] | | | | | | | [...] [facility]) | results section. | | | | | 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| | 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 ([facility]) | | + +--------+ + + + | VITAMIN B1, WHOLE | Routin | 11/20/2017 | Morbid obesity | Results for this | | BLOOD | e | 10:01 AM | with BMI of 70 and | procedure are in the | | | | PDT | over, adult ([facility]) | results section. | | | | | 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| | 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 ([facility]) | | + +--------+ + + + | VITAMIN D, | Routin | 11/20/2017 | Morbid obesity | Results for this | | 25-HYDROXY, SERUM | e | 10:01 AM | with BMI of 70 and | procedure are in the | | | | PDT | over, adult ([facility]) | results section. | | | | | 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| | 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 ([facility]) | | + +--------+ + + + | COMPLETE METABOLIC | Routin | 11/20/2017 | Morbid obesity | Results for this | | SET | e | 10:01 AM | with BMI of 70 and | procedure are in the | | (NA,K,CL,CO2,BUN,CRE | | PDT | over, adult ([facility]) | results section. | | AT,GLUC,CA,AST,ALT,B | | | Diabetes mellitus | | | MARGIE TOTAL,ALK | | | type 2 without | | | PHOS,ALB,PROT TOTAL) |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 ([facility]) | | + +--------+ + + + | CBC ONLY | Routin | 11/20/2017 | Morbid obesity | Results for this | | | e | 10:01 AM | with BMI of 70 and | procedure are in the | | | | PDT | over, adult ([facility]) | results section. | | | | | 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| | 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 ([facility]) | | + +--------+ + + + | FERRITIN | Routin | 11/20/2017 | Morbid obesity | Results for this | | | e | 10:01 AM | with BMI of 70 and | procedure are in the | | | | PDT | over, adult ([facility]) | results section. | | | [...] [facility] | results section. | | | | | 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| | 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 ([facility]) | | + +--------+ + + + | VITAMIN B-12 | Routin | 11/20/2017 | Morbid obesity | Results for this | | | e | 10:01 AM | with BMI of 70 and | procedure are in the | | | | PDT | over, adult ([facility]) | results section. | | | | | 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| | 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 ([facility]) | | + +--------+ + + [...] + + | [facility] | [address] | [place] [address] | | | [facility] | | | | | HEALTH + [...] | + + + + + | [facility] | [address] | [place], [place] | | | SERVICES, LIPID | [address] | [address] | | + + + + + [...] [facility] | | considered for monitoring termite helper glycemic control in patients with: | LABORATORY [...] | [facility] | [address] [facility] | [place] [address] | | | SERVICES, SPECIAL | PARK [...] | | | | | determined by [facility] | | | | | | Laboratories. See | | | | | | Compliance Statement B: | | | | | | StepUp/CSPerformed | | | | | | by [employer],[address] | | | | | | Liliana Martinez [facility] | | | | | | [address] | | | | | | [phone][employer]. | | | | | | Ismael [...] [facility] | [address] | [place], [place] | | | [facility] | | [address] | | + + + + + [...] | | | LABORATORY | | | [place]OREAN | | | SERVICES, | | | [...] + + + + | [facility] | [address] [facility] [facility] [facility] | [place] [address] | | | LYDIA RANGEL | CLARENCE [...] [facility] | [address] | [place] [address] | | | CLAIRE, LYDIA | PARK [...] | + + + + + | [facility] | [address] | [place] [address] | | | SERVICES, CORE | CLARENCE [...] [facility] | [address] | [place] [address] | | | SERVICES, CORE | CLARENCE [...] [facility] | [address] | [place] [address] | | | SERVICES, CORE | PARK [...] | + + + + + | [facility] | [address] | [place] [address] | | | SERVICES, CORE | PARK [...]
--- OUTSIDE RECORDS SUMMARY | ~2020-03-26 | XMS | Encounter Summary ---
Demographics + + + | Address | [address] | | | [place] [address] | + + + | Home Phone [...] [place], [place] | | | | | [address] | | + + + + + | Ellie Vang | ECON | Unknown | | + + + + + Care Team Providers + +------+ + | Care Production Finisher Name | Role | Phone | [...] | | | | | Procedures | [place], [place] | | | | | | TRANSTHORACI | [address] | | | | | | C | Phone: | | | | | | ECHOCARDIOGR | [phone] | | | | | | AM, ADULT | Fax: | | | | | | | [phone] | | +--------+--------+ + + + + [...] | 2016 | Visit | Preventive at [facility] | MD [address] | exertion) (Primary | | | | [address] | [place], [place] | Dx) | | | | [facility] | [address] | | | | | and Healing, | [phone] | | | | | [address] | | | | | | [place], [place] | | | | | | [address] | | | | | | [phone] | | | +--------+---------+ + + + [...] 500 mg by mouth once daily. CALCIUM [id number]-[id number] ORAL Take 1 tablet by mouth two [...] himself to the local hospit al in [place] and so this has been delayed. ROS: [...] to lose the additional weight requested by [facility] bariatric surgery [facility]. This current weight [...] | | 2019 | sherrill | | INFRASTRUCTURE TECH [address] | | | | | | [place], [place] | | | | | | [address] | | | | | | [phone] | | | | | | | [...]
--- OUTSIDE RECORDS SUMMARY | ~2020-03-26 | XMS | Encounter Summary ---
Demographics + + + | Address | [address] | | | [place] [address] | + + + | Home Phone [...] [place], [place] | | | | | [address] | | + + + + + | Ellie Vang | ECON | Unknown | | + + + + + Care Team Providers + +------+ + | Care Dermatology Teacher Name | Role | Phone | + +------+ + | Fadi Goodrich DO | PCP | | + +------+ + Encounter Details +--------+ + + + + | Date | Type | Department | Care Team | Description | +--------+ + + + + | 06/02/ | Telephone | Digestive Health | Ronna Clarke, | | | 2018 | | Center at [facility] [address] | ACNP [address] | | | | | [address] | Ave [place], [place] | | | | | for Health and | [address] | | | | | [facility] [address] | [phone] | | | | | [place], [place] | | | | | | [address] | | | | | | | [...] Telephone Encounter - Melissa Garay RN - 06/03/2018 5:08 PM PSTCalled and left a voic email to follow up with Elzbieta to see if she contacted her PCP. Will try again tomorrow. Elec tronically signed by Melissa Garay RN at 06/03/2018 5:08 PM PSTTelephone Encounter - Melissa Vincent RN - 06/02/2018 4:50 PM PSTSpoke with Elzbieta and notified her of lab result s and that potassium level was low, vitamin d and PTH were elevated along with some other ab normal values. Since she is already taking potassium regularly, recommended that she contact her PCP tomorrow am for a plan and that I would follow up with her tomorrow afternoon. She states understanding. Labs were faxed to PCP Dr. Goodrich through [employer]. documented in this encounter Plan of Treatment +--------+ + + + + | Date | Type | Specialty | Care Team | Description | +--------+ + + + + | 04/04/ | Telephone-S | Surgery | Orquidea Cristobal, | | | 2019 | sherrill | | CONSTRUCTION RIGGER [address] | | | | | | [place], [place] | | | | | | [address] | | | | | | [phone] | | | | | | | | +--------+ + + + + documented as of this encounter Visit Diagnoses Not on filedocumented in this encounter"
--- OUTSIDE RECORDS SUMMARY | ~2020-03-26 | XMS | Encounter Summary ---
Demographics + + + | Address | [address] | | | [place] [address] | + + + | Home Phone [...] [place], [place] | | | | | [address] | | + + + + + | Ellie Vang | ECON | Unknown | | + + + + + Care Team Providers + +------+ + | Care Recreation Therapy Aide Name | Role | Phone | + [...] | Pain | Diagnoses | Analisa Georges Fastener Sewing Machine Operator Psych | | | | Management | Morbid | DANIELLE BrunerP | [address] | | | | | obesity with | [address] | | | | | BMI of [address] | Center for | | | | | and over, | [place], [place] | Health and | | | | | adult (HCC) | [address] | Healing, | | | | | Procedures | Phone: | Building | | | | | CONSULT TO | [phone] | 1,15th Floor | | | | | PAIN | Fax: | [place], [place] | | | | | MANAGEMENT | [phone] | [address] | | | | | [place] | | Phone: | | | | | PSYCHIATRIC | | [phone] | | | | | DIAGNOSTIC | | Fax: | | | | | EVAL, NO MED | | [phone] | | | | | [facility] [place] | | | | | | | [...] | [facility] S[facility] | | | with GAMEMASTER | | hypertension | [address] | [address] | | | | | Right | [address] | [address] | | | | | heart | [place], [place] | [place] for | | | | | failure | [address] | Health and | | | | | ([facility]) Type | Phone: | Healing, | | | | | 2 diabetes | [phone] | Building 2 | | | | | mellitus | Fax: | [place], [place] | | | | | without | [phone] | [address] | | | | | complication | | Phone: | | | | | , with | | [phone] | | | | | long-term | | Fax: | | | | | current use | | [phone] | | | | | of insulin [...] | 2016 | Visit | Center at [facility] [address] | [facility] [address] | BMI of 70 and over, | | | | [address] | [facility] [place] | adult ([facility]) (Primary | | | | for Health and | [address] | Dx); Chronic | | | | Healing, Building 2 | | diastolic heart | | | | [place], [place] | | failure (HCC); | | | | [address] | | Immobility; Severe | | | [...] this encounter Patient Instructions Patient Instructions Shereen Georges [facility] - 02/02/2017 9:00 AM PDTPlan: The [...] to your private appointme nt with the washing machine installer. These classes will be scheduled apporoximately 1 month apart to allow time for you to put the teaching into action. Please call [phone] + Labs needed: Pre op: drug screen [...] are done + EKG: Please Have your garbage truck driver do the eval and send it to us + Pre-op Psychological Evaluation: Your referral is at [facility], The Pain Management Office will call you [...] be safely completed. + Sign up for Scheduling Employee Scheduling Software so that we can communicate easily back and forth Once the above list is completed and copies have been received by our office, we will submi t for insurance authorization then schedule with the surgeon. KAIN De Dios DNP, HEAVY LINE TECHNICIAN Nurse Practitioner for Bariatric Surgery [facility] | [address] | [place], [place] | [address] | documented in this encounter Progress Notes Shereen Georges ACNP - 02/02/2017 9:00 AM PDTFormatting of this note might be different f rom the original. BARIATRIC INITIAL VISIT Provider: Shereen Pinto DNP, ACNP, HEAVY LINE TECHNICIAN Referring Provider: Fadi Goodrich DO Reason for [...] t loss. Consults: Cardiology: Dr. Edson Livingston [facility] Route Deliverer: Nickie : [facility] Paula But comes to magen Order Puller at [facility]: Dr. Zhong for weight loss medication Quaker or cultural reason you would refuse blood [...] once daily., Disp : , Rfl: CALCIUM CRB&FFK-[id number]-GENIS ORAL, Take 2 tablets by mouth two [...] History Narrative Updated 11/09/15 She lives in [place] with her mother and her sister (also her caregiver) lives in an apa rtment/duplex below. She has 2 grandchildren (age 4 and 7) who live with her daughter and son-in-law Her boyfriend lives in [place] Family History Problem Relation Heart Attack Father [...] extre mity edema, hypertension, hyperlipidemia. Denies CHF, VT, ischemic heart disease, or pulmon nikki hypertension. [...] it is Updated each year September in 2017 was replaced right lateral arm . Skin: [...] years without success. She qualifies for medically neces leanna weight loss surgery to control co-morbidities. Elzbieta [...] management, and was referred as well to food or baggage handling rampman. Plan: Request that her garbage truck driver clear her, and make recommendations 3. Mammogram: appears to be due, PAP due 2017 4. Immobility: PT consult per routine. 5. [...] to your private appointme nt with the washing machine installer. These classes will be scheduled apporoximately 1 month apart to allow time for you to put the teaching into action. Please call [phone] + Labs needed: lipids, CBC, CMP, TSH, [...] are done + EKG: Please Have your garbage truck driver do the eval and send it to us + Pre-op Psychological Evaluation: Your referral is at [facility], The Pain Management Office will call you [...] be safely completed. + Sign up for Scheduling Employee Scheduling Software so that we can communicate easily back and forth Once the above list is completed and copies have been received by our office, we will submi t for insurance authorization then schedule with the surgeon. Shereen Pinto DNP, DANIELLEP, HEAVY LINE TECHNICIAN Nurse Practitioner for Bariatric Surgery [facility] | [address] | [place] | [address] | documented in this encounter Plan of Treatment +--------+ + + + + | Date | Type | Specialty | Care Team | Description | +--------+ + + + + | 04/04/ | Telephone-S | Surgery | Orquidea Cristobal, | | | 2019 | cheduled | | HEAVY LINE TECHNICIAN [address] | | | | | | [place], [place] | | | | | | [address] | | | | | | [phone] | | | | | | | [...]
--- OUTSIDE RECORDS SUMMARY | ~2020-03-26 | XMS | Encounter Summary ---
Demographics + + + | Address | [address] | | | [place] [address] | + + + | Home Phone [...] Author + + + | Author | [facility] | | | and Jeffana | + + + | Organization | [facility] | | [...] Team Providers + +------+ + | Care Hobbing Press Operator Name | Role | Phone | + +------+ + PCP | Unavailable | + +------+ + Encounter Details +--------+ + + + + | Date | Type | Department | Care Team | Description | +--------+ + + + + | 06/19/ | Hospital | [facility] | Fadi Goodrich, | | | 2002 | Encounter | CONVERSION DEP [address] | DO [address] | | | | | [address] | [place], [place] | | | | | [place], [place] | [address] | | | | | [address] | | | | | | [phone] | | | +--------+ + + + [...] | | | | | | [place] [address] | | | | | | [phone] | | | | | | | | +--------+ + + + + | 04/18/ | Procedure | Neurology | Camille De La Paz, | | | 2019 | visit | | MD Saumya MOE | | | | | | [address] | | | | | | [place] [address] | | | | | | [phone] | | | | | | | | +--------+ + + + + documented as of this encounter Visit Diagnoses Not on filedocumented in this encounter"
--- OUTSIDE RECORDS SUMMARY | ~2020-03-26 | XMS | Encounter Summary ---
Demographics + + + | Address | [address] | | | [place] [address] | + + + | Home Phone [...] + | Katalina Padilla | ECON | [address] | | | | | [place], [place] | | | | | [address] | | + + + + + | Ellie Vang | ECON | Unknown | | + + + + + Care Team Providers + +------+ + | Care Freight Hustler Name | Role | Phone | + +------+ + | Kenyatta Cardenas MD | PCP | | + +------+ + Encounter Details +--------+---------+ + + + | Date | Type | Department | Care Team | Description | +--------+---------+ + + + | 06/14/ | Office | Cardiology | Randell Franks, | Type 2 diabetes | | 2019 | Visit | Preventive at [facility] | MD [address] | mellitus without | | | | [address] | [place], [place] | complication, with | | | | [place] for [facility] | [address] | long-term current | | | | and Healing, | [phone] | use of insulin (HCC) | | | | Building 1 | | (Primary Dx); | | | | [place], [place] | | Morbid obesity with | | | | [address] | | BMI of 70 and over, | | | | [phone] | | adult (HCC) | +--------+---------+ + [...] 04/14/2013 Priority: 3 Hypoventilation associated with obesity ([facility]) 06/16/2013 Priority: 4 AMARA (obstructive sleep apnea) 04/14/2013 Priority: 4 Overview Note: Cannot tolerate CPAP Severe Morbid obesity ([facility]), BMI 88 11/12/2012 Priority: 4 Overview Note: Lifetime max: 495 lbs Phentermine started Type 2 diabetes mellitus ([facility]) 04/14/2013 Priority: 5 Iron deficiency anemia due to chronic blood loss 11/11/2015 Priority: 6 Overview Note: Ferritin 18 on 10/2015 Hypoalbuminemia (no proteinuria, need to rule out synthetic, nutrition, loss) 6 Priority: 6 Hypothyroidism 08/28/2014 Priority: 8 Morbid obesity with BMI of 70 and over, adult ([facility]) 02/02/2017 Chronic diastolic heart failure ([facility]) 02/02/2017 Immobility 02/02/2017 Severe muscle deconditioning [...] daily. BELBUCA 300 mcg buccal film CALCIUM CRB&CJW-H0-TFI10-GENIS ORAL Take 2 tablets by mouth two [...] of metformin, and she reports her last qyehc-ow-tjeo A1 c was 5.5% on this dose. [...] CREATININE PLASMA (LAB) 0.85 0.70 EGFR - TANZANIAN >60 >60 EGFR NON -TANZANIAN >60 >60 GLUCOSE, PLASMA (LAB) 123 (H) [...] is currently being managed well by her Sample Supervisor with diuretics and main tenance of her [...] management of her heart failure by her Sample Supervisor 3) discontinue metformin 4) check 24 urine [...] | | 2019 | chesteve | | RED HAT ENGINEER [address] | | | | | | [facility], [place] | | | | | | [address] | | | | | | [phone] | | | | | | | [...] + + | [facility] - | [address] | [place] | [phone] | | SAIMA | | | | [...]
--- OUTSIDE RECORDS SUMMARY | ~2020-03-26 | XMS | Encounter Summary ---
Demographics + + + | Address | [address] | | | [place] [address] | + + + | Home Phone [...] [place], [place] | | | | | [address] | | + + + + + | Ellie Vang | ECON | Unknown | | + + + + + Care Team Providers + +------+ + | Care Javascript Software Engineer Name | Role | Phone [...] | ogy | History of | Ion Covlin MD | [address] | | | | | Frandy-en-Y | [address] | [address] | | | | | gastric | Ave | Center for | | | | | bypass | [place], [place] | Health and | | | | | Nausea and | [address] | Healing, | | | | | vomiting, | Phone: | Building 2 | | | | | intractabili | | [place], [place] | | | | | ty of | Fax: | [address] | | | | | vomiting not | [phone] | Phone: | | | | | specified, | | [phone] | | | | | unspecified | | Fax: | | | | | vomiting | | [phone] | | | | | type | [...] | | | | | | DILATION OR | | | | | | | UPPER GI | | | | | | | ENDOSCOPY,BI | | | | | | | OPSY OR UP | | | | | | [...] | | 2017 | | Center at [facility] [address] | MD [address] | | | | | [address] | [place], [place] | | | | | [facility] and | [address] | | | | | [facility] 2 | [phone] | | | | | [place], [place] | | | | | | [address] | | | | | | [phone] | | | +--------+ + + + [...] at a time. She went in to [facility] ED a few days ago for dehydration. [...] | | 2019 | cheduled | | SURGICAL ELASTIC KNITTER [address] | | | | | | [place], [place] | | | | | | [address] | | | | | | [phone] | | | | | | | [...]
--- OUTSIDE RECORDS SUMMARY | ~2020-03-26 | XMS | Encounter Summary ---
Demographics + + + | Address | [address] | | | [place] [address] | + + + | Home Phone [...] + | Katalina Padilla | ECON | [address] | | | | | [place], [place] | | | | | [address] | | + + + + + | Ellie Vang | ECON | Unknown | | + + + + + Care Team Providers + +------+ + | Care Optoelectronics Engineer Name | Role | Phone | [...] | | 2016 | | Preventive at [facility] | MD [address] | | | | | [address] | [place], [place] | | | | | [facility] | [address] | | | | | and [place], | [phone] | | | | | [place] [address] | | | | | | [place], [place] | | | | | | [address] | | | | | | [phone] | | | +--------+ + + + [...] MA - 02/25/2016 3:04 PM PDTI called [facility] in [place], [place] for visit notes from the following dates: 01/10/16, 01/30/16, 02/09/16 . documented in this e ncounter Plan of Treatment +--------+ + + + + | Date | Type | Specialty | Care Team | Description | +--------+ + + + + | 04/04/ | Telephone-S | Surgery | Orquidea Cristobal, | | | 2020 | sherrill | | GENERAL MANA[address] ROAD PRODUCTION [address] | | | | | | [place] | | | | | | [address] | | | | | | [phone] | | | | | | | | +--------+ + + + + documented as of this encounter Visit Diagnoses Not on filedocumented in this encounter"
--- OUTSIDE RECORDS SUMMARY | ~2020-03-26 | XMS | Encounter Summary ---
Demographics + + + | Address | [address] | | | [place] [address] | + + + | Home Phone [...] [place], [place] | | | | | [address] | | + + + + + | Ellie Vang | ECON | Unknown | | + + + + + Care Team Providers + +------+ + | Care Hardboard Grinder Name | Role | Phone | [...] | 2019 | sherrill | | DATA SECURITY ANALYST [address] | | | | | | [place] | | | | | | [address] | | | | | | [phone] | | | | | | | | +--------+ + + + + documented as of this encounter Visit Diagnoses Not on filedocumented in this encounter"
--- OUTSIDE RECORDS SUMMARY | ~2020-03-26 | XMS | Encounter Summary ---
Demographics + + + | Address | [address] | | | [place] [address] | + + + | Home Phone [...] + | Katalina Padilla | ECON | [address] | | | | | [place], [place] | | | | | [address] | | + + + + + | Ellie Vang | ECON | Unknown | | + + + + + Care Team Providers + +------+ + | Care Inspector Advanced Composite Name | Role | Phone | + [...] hernia | MD Jones | [address] | | | | | without | [address] | [place] | | | | | obstruction | [address] | [address] [place], | | | | | or gangrene | Rd | [place] | | | | | | [place], [place] | [address] | | | | | Incarcerated | [address] | Phone: | | | | | ventral | Phone: | [phone] | | | | | hernia | [phone] | Fax: | | | | | Procedures | Fax: | [phone] | | | | | REQUEST TO | [phone] | | | | | | SURGERY | | | | | | | TRUCK DISPATCHER | | | | | | | [place] REPAIR | | | | | | | INCISIONAL | | | | | | | HERNIA,STRAN | | | | | | | G [place] REPAIR | | | | | | | INCIS | | | | | | | HERNIA W | | | | | | | MESH [place] | | | | | | | MUSCLE-SKIN | | | | | | | FLAP,TRUNK | | | | | | | [place] | | | | | | | MUSCLE-SKIN | | | | | | | FLAP,TRUNK | | | | | | | [place] REPAIR | | | | | | | INCISIONAL | | | | | | | HERNIA,REDUC | | | | | | | [place] | | | | | | | REPAIR INCIS | | | | | | | HERNIA W | | | | | | | [place]ESH [place] | | | | | | | REPAIR | | | | | | | RECURR INCIS | | | | | | | | | | | | | | HERNIA,STRAN | | | | | | | G [place] REPAIR | | | | | | | INCIS | | | | | | | HERNIA W | | | | | | | MESH [place] | | | | | | | REPAIR | | | | | | | RECURR INCIS | | | | | | | | | | | | | | HERNIA,REDUC | | | | | | | [place] REPAIR | | | | | | [...] | | | | | obstruction | [place], | for Health | | | | | or gangrene | [place] | and Healing, | | | | | Abdominal | [address] | [address] | | | | | pain, | Phone: | [place], [place] | | | | | unspecified | [phone] | [address] | | | | | abdominal | Fax: | Phone: | | | | | location | [phone] | [phone] | | | | | Procedures | | Fax: | | | | | CONSULT TO | | [phone] | | | | | SURGERY - [...] | 2019 | Visit | Center at [facility] [address] | MD Jones [address] | without obstruction | | | | [address] [facility] | [address] | or gangrene (Primary | | | | for Health and | [place], [place] | Dx) | | | | Healing, Building 2 | [address] | | | | | [place], [place] | [phone] | | | | | [address] | | | | | | [phone] | | | +--------+---------+ + + + [...] (1?2 cup) 6.5 Avocado 1?2 fruit 2.1 [place] sprouts, cooked 125 mL (1?2 cup) 2.0 Figs, dried 60 mL (1?4 cup) 1.9 Cook 1 medium 1.8 Sweet Potato, cooked, without [...] 1.3 Eggplant 125 mL (1?2 cup) 1.3 [place], with skin 1 medium 1.0-1.3 Peas, green, cooked 125 mL (1?2 cup) 0.8-1.3 Carrot, cooked John 125 mL (1?2 cup) 1?2 fruit 1.1-1.2 0.7-1.1 Grapefruit 1?2 fruit 0.7-1.1 Prunes, dried 3 1.1 [place], with skin 2 fruits 1.1 Apricots, dried [...] Bread, rye 35 g (1 slice) 0.6-1.0 Dodge bread crackers 3 crackers 0.9 Raisin bran [...] of Soluble Fiber [email or web address] PATIENT SURGERY INFORMATION [facility] General Surgery Office Toll-free: ext [phone] Surgery Date: Monday, July 08, [address]: Main [facility] Procedure: recurrent ventral hernia repair Surgeon Name: Dr. Jones Tiwari DIRECTIONS FOR SURGERY TO PREPARE FOR SURGERY - If you are able, walk every day for at least 30 minutes. - Follow up: Phone pre-operative medicine clinic call to be completed within 30 days of emerson jerrica. This call appointment will be scheduled with you by a letter carrier. You will receive a ca ll within [...] ease call the General Surgery Office at [phone] for azycb-uj-dhyu. Check-in on the day of surgery is at the Admitting Department located on the 9th floor of [facility]. DIET Nothing to eat or drink [...] the surgery. Please see the list below, [facility] has a list of products that contain [...] contact our office . Products Containing Aspirin Yuki-Vernon, Anacin, Anexsia with Codeine, Andynos, Aspirin, Aspirin suppositories, Ascrip tin, Aspergum, Axotal, B-A-C, Baby Aspirin, Lucila, BC Powder, Bexophene, Buffaprin, Bufferin , Buffinol, Cama-Arthritis Strength, Congespirin, [place], Coricidin, Damason, Darvon, Dristan, Kalani-Gesic, Digel, Dolprin #3 Tablets, Donatab, Doxaphene, Duragesic, Easprin, Ecotrin, Emag rin Forte, Emiprin, Emprazil, Equagesic, Equazine M, Excedrin, Fiogesic, Fiorgen PH, Fiorice t, Fiorinal, 4-Way Cold Tablet, Gemnisyn, Indocin, Liquprin, Lortab ASA, Magnaprin, Marnal, Meprobamate, Midol, Momentum, Norgesic, Se[place]rook, Orphengesic, Pabalate, P-A-C, Percodan, Pre salin, Robaxasil, Roxiprin, Saleto, Salocol, SK-65 Compound, Sine-Aid, Sine-Off, Whitfield, Supac, Talwin Compound, Trigesic, Tolectin, Traiminicin, Vanquish, [...] Vitamin E, Gingko Biloba, Marine Fatty Acids, Tacna-3 Fish Oil Supplement PRE-OP BATHING/SHOWER INSTRUCTIONS with [...] loss of tissue. Check out the free [place] Quit Line - The Quit Line is open 24 hours a day, seven days a we ek. The Quit Line is a telephone and web-based counseling service to help [place]ians quit us ing tobacco and nicotine products. .QUIT.NOW ( ) or www.quitnow.net/[place] PARKING Parking at the [facility] for patients and visitors is available in the [facility] located across from the emergency department. Patient parking is available on level 1 and 3. Metered parking is available on the top level. Parking at [facility] is available in the building's parking structure. For additional parking options visit [email or web address]. TRANSPORTATION You will require transportation home on the day of discharge. Pain medications and physical activity restrictions may limit your ability to drive safely. CANCELLING YOUR PROCEDURE Please notify the general surgery office at [phone] as soon as possible should you nee [...] lost 100+ lbs! She last saw the the medical center team in 02/2019, at which time she [...] plans to see an ENT and a paper box maker for her symptoms in the near future. [...] or less 8 [facility] Past Medical History: Diagnosis Date [...] of 70 and over in adult ([facility]) Myalgia and myositis Nausea Neck pain Numbness Osteoarthritis of knee Palpitations Pneumonia Shortness of breath Staphylococcal infection Stroke ([facility]) TIA (transient ischemic attack) due [...] file Gets together: Not on file Attends anabaptism service: Not on file Active member of club or organization: Not on file Attends meetings of clubs or organizations: Not on file Relationship status: Not on file Other Topics Concern Not on file Social History Narrative Updated 11/09/15 She lives in [place] with her mother and her sister (also her caregiver) lives in an apa rtment/duplex below. She has 2 grandchildren (age 4 and 7) who live with her daughter and son-in-law Her boyfriend lives in [place] HFpEF, DM2, HTN, Sleep Apnea (unable to tolerate CPAP), Hypothyroidism, Severe Obesity ([facility] max weight 495 lbs) Last seen [...] program here and refer her to our corporate communications specialist who also has expertise in physical [...] daily. BELBUCA 600 mcg buccal film CALCIUM CRB&CUC-T7-KJS59-GENIS ORAL Take 2 tablets by mouth two [...] morbid obesity s/p laparoscopic anteocolic RYGB (03/01/2018); [facility] e this operation, she has lost 100+ [...] JONES TIWARI MD [facility] AT [address] Mailcode: [place] [address] I spent 31 minutes with the patient. Greater than 50% of the time was spent counseling and educating the patient regarding weight loss, as well as other factors pertinent to ventral hernia repair. ERdoculars entalise in this encounter Plan of Treatment +--------+ + + + + | Date | Type | Specialty | Care Team | Description | +--------+ + + + + | 04/04/ | Telephone-S | Surgery | Orquidea Cristobal, | | | 2019 | sarahiduled | | DENTAL EQUIPMENT INSTALLER AND SERVICER [address] | | | | | | [place], [place] | | | | | | [address] | | | | | | [phone] | | | | | | | | +--------+ + + + + documented as of this encounter Visit Diagnoses + + | Diagnosis | + + | Ventral hernia without obstruction or gangrene - Primary Ventral hernia, unspecified, | | without mention of obstruction or gangrene | + + documented in this encounter
--- OUTSIDE RECORDS SUMMARY | ~2020-03-26 | XMS | Encounter Summary ---
Demographics + + + | Address | [address] | | | [place] [address] | + + + | Home Phone [...] [place], [place] | | | | | [address] | | + + + + + | Ellie Vang | ECON | Unknown | | + + + + + Care Team Providers + +------+ + | Care Supervisor Scenic Arts Name | Role | Phone | + [...] Diabetes & | Morbid | Kathy M, SAP SECURITY CONSULTANT | [address] | | | | Metabolism | obesity | [address] | Pavilion | | | | | (HCC) | [address], | Loop | | | | | Procedures | [address] | Physician's | | | | | CONSULT TO | [place], [place] | Pavilion | | | | | ENDO | [address] | Physician's | | | | | [address] | Phone: | Pavilion | | | | | | [phone] | [place], [place] | | | | | | Fax: | [address] | | | | | | [phone] | Phone: | | | | | | | [phone] | | | | | | | Fax: | | | | | | | [phone] | +--------+--------+ + + + + Encounter [...] | | | Center at Physicians | [place], [place] | (Primary Dx); Morbid | | | | [address] | [address] | obesity (HCC) | | | | [address] | [phone] | | | | | Physician's Pavilion | | | | | | Physician's | | | | | | Pavilion [place], | | | | | | [place] [address] | | | | | | [phone] | | | +--------+---------+ + + + [...] Since I saw Ms. Livia signh last, she started on phentermine with good [...] | | 2019 | sherrill | | CAKE KNOCKER [address] | | | | | | [place], [place] | | | | | | [address] | | | | | | [phone] | | | | | | | [...]
--- OUTSIDE RECORDS SUMMARY | ~2020-03-26 | XMS | Encounter Summary ---
Demographics + + + | Address | [address] | | | [place] [address] | + + + | Home Phone [...] + | Katalina Padilla | ECON | [address] | | | | | [place], [place] | | | | | [address] | | + + + + + | Ellie Vang | ECON | Unknown | | + + + + + Care Team Providers + +------+ + | Care Revenue Enforcement Collection Agent Name | Role | Phone | [...] PRINCE Giles | | | | | [place], [place] | [address] | | | 11/[birth year]/ | | [address] | [place], [place] | | | 2012 | | [phone] | [address] | | | | | | [phone] | | | | | | | [...] yuriy tral hernia. She was transferred from [place] for surgical evaluation of possible incarcer ated [...] Cipro. POD 5 she was discharged ho ar, tolerating a diabetic diet. Having bowel function. [...] yuriy tral hernia. She was transferred from [place] for surgical evaluation of possible incarcer ated [...] Cipro. POD 5 she was discharged ho ar, tolerating a diabetic diet. Having bowel function. [...] keeping you from eating and drinking, Call [phone]. It is important to stay hydrated! If [...] taking narcotic that contain Tylenol (acetaminophen) Example: Wayne, Lortab, Vicodin, hydrocodone/APAP, Percocet, Tylenol #3 PAIN MEDICATIONS are ONLY REFILLED during CLINIC APPOINTMENTS. Please call [phone] to schedule an appointment. Your Follow-Up Plan Follow up with ROBIN MEJIA in 2 weeks. Contact information: [address] [facility] [address] Vitals on discharge: Ht 154.9 cm (5' [...] might be different f rom the original. [facility] DEPARTMENT OF SURGERY EMERGENCY GENERAL SURGERY Division [...] clinic [place]. [place] [phone] [phone] [place] [phone] Aminta Goodwin Md - 11/11/2012 7:40 AM PDT [facility] DEPARTMENT OF SURGERY EMERGENCY GENERAL SURGERY Division of Trauma and Critical Care Attending Physician: Andie Chun MD Progress Note Note Date: 11/11/2012 Admission Date: 11/06/2012 DYLAN ROMERO, [id number] Hospital Day #5 INTERVAL EVENTS none acute [...] mg, Rectal, DAILY PRN, Aminta Wilson MD muicdckuwh-sbewjsvyvchkd-iqdhxqkh (aka FIORICET) 50-325-40 mg 1 Tab, 1 [...] Jayne Ponce MD, 1 mg at 11/10/12801 qvvfxymcpe-syinvbnehkfvt-bddvylsb (aka FIORICET) 50-325-40 mg 1 Tab, 1 [...] in preservative free NaCl 0.9% 50 mL AUTO CLUB TRAVEL COUNSELOR infusion, , Intravenous, KIESHA NUOUS, Aracely Ferronato, DO, 0.1 mg at 11/10/12 0748 insulin lispro (aka HUMALOG) injection, , Subcutaneous, MEALS and HS, Kaleb Wing, SUPERVISOR FORCE ADJUSTMENT ketorolac (aka TORADOL) injection 30 mg, 30 [...] diet -add bowel regimen Acute pain -HM AUTO CLUB TRAVEL COUNSELOR, tylenol -convert to oral pain medication once [...] Fluids: LR 125ml/hr Feeding: NPO Analgesia: Dilaudid AUTO CLUB TRAVEL COUNSELOR Sedation: not indicated Thromboprophylaxis: enoxaparin Head of [...] Ponce MD, 1 mg at 11/09/12 0855 vkbdjwhnyx-qwdmqwoxaeqsp-oevrscpx (aka FIORICET) 50-325-40 mg 1 Tab, 1 [...] in preservative free NaCl 0.9% 50 mL AUTO CLUB TRAVEL COUNSELOR infusion, , Intravenous, KIESHA NUOUS, Aracely Flores [...] drainage <30ml for 24hrs Acute pain -HM AUTO CLUB TRAVEL COUNSELOR, tylenol Diabetes: -insulin gtt not started due [...] Fluids: LR 125ml/hr Feeding: NPO Analgesia: Dilaudid AUTO CLUB TRAVEL COUNSELOR Sedation: not indicated Thromboprophylaxis: enoxaparin Head of bed: > 30 Ulcer prophylaxis: pepcid Glycemic control: adequate Activity/PT/OT: Ongoing Yogurt: ABX on Probiotics:yes AMINTA WILSON MD General Surgery, R1 MarioKokoChari Michaud P - 11/08/2012 8:49 AM PDT [facility] DEPARTMENT OF SURGERY EMERGENCY GENERAL SURGERY Division of Trauma and Critical Care Attending Physician: Andie Chun MD Progress Note Note Date: 11/08/2012 Admission Date: 11/06/2012 DYLAN ROMERO, [id number] Hospital Day #2 INTERVAL EVENTS NO SUBJECTIVE Pain well controlled; has headache attributed to dilaudid AUTO CLUB TRAVEL COUNSELOR Tylenol did not help. Flatus: YES Tolerating [...] trials today. -DC kilgore Acute pain -HM AUTO CLUB TRAVEL COUNSELOR, tylenol Diabetes: -insulin gtt not started due [...] Fluids: LR 125ml/hr Feeding: NPO Analgesia: Dilaudid AUTO CLUB TRAVEL COUNSELOR Sedation: not indicated Thromboprophylaxis: enoxaparin Head of bed: > 30 Ulcer prophylaxis: pepcid Glycemic control: adequate Activity/PT/OT: Ongoing Yogurt: ABX on Probiotics: No KALEB WING NP [facility] [place] [address] Kelvin Lobato MD - 11/07/2012 9:51 PM [...] 7.33* PCO2 49* PO2 113* HCO3 25 BRSSD3PWI 26 Y5TVMLMU 98.3* O3VJQLCOW -- FIO2 60 ABGEXCESS -0.9 Assessment, Medical Decision Making and Plan 1. Incarcerated hernia, now s/p repair and panniculectomy -Binder, pain control, minimize nausea and coughing PRN. -NG clamping trials today. 2. Acute pain -HM AUTO CLUB TRAVEL COUNSELOR, tylenol 3. Diabetes: -insulin gtt 4. Morbid [...] Dione Nickerson MD R-2, General Surgery Pager: [phone] [facility] [place] Department of Surgery Trauma ICU Team Pager (24hrs/day): [phone] I was present with the resident during the history and exam. I discussed the case with the resident and agree with the findings and plan as documented in the resident s note. KELVIN SPENCE MD [facility] [address] [place] [id number] Onur Graves MD - 11/07/2012 2:37 AM [...] in preservative free NaCl 0.9% 50 mL AUTO CLUB TRAVEL COUNSELOR infusion Intravenous CON TINUOUS Aracely Flores DO [...] (aka BACTROBAN) 2 % ointment Nasal BID Dnany Liu MD naloxone (aka NARCAN) injection Intravenous [...] Onur Allen MD 150 mg at 11/06/12 5570 Assessment & Plan: Dylan Romero is a 37 y.o. Morbidly obese female who presented with an incarcerated vent ral hernia who is now POD#1 s/p primary repair. 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 housing installer and prn tylenol, continue prozac and zyprexa [...] F: probable remain NPO today A: dilaudid housing installer, prn tylenol S: prn benzos as she is at home T: will start prophylactic lovenox today H: HOB >30 degrees U: pepcid G: insulin gtt ONUR ALLEN MD, PGY3 [facility] [id number] [address] Onelia Shrestha MD - 11/06/2012 8:41 AM PDT [facility] DEPARTMENT OF SURGERY Division of Trauma and Critical Care Emergency General Surgery / Acute Care Surgery Attending Physician: Andie Chun MD Note Date: 11/06/2012 Admission Date: 11/06/2012 DYLAN ROMERO, [id number] Hospital Day #0 OVERNIGHT EVENTS: anxious SUBJECTIVE: [...] wwp LABS: reviewed and are available in [employer] (if new data) IMAGING: VASCULAR: IMPRESSION: Dylan Shereen Anna is a 37 y.o. Female with multiple [...] is likely dehydrated and needs fluid resuscitation. NADIE CHUN MD [facility] [address] [place] [address] emarcus Christopher MD - 0 11/05/2012 10:24 [...] She presents today as a transfer from [place] with concern for possible incarcerated marguerite ia. [...] She presents today as a transfer from [place] with concern for possible incarcerated marguerite ia. [...] inferior abdo stephany ventral hernia transferred to [facility] over concern for incarcerated hernia. The hernia w as non reducible, but was limited by pain on exam. Her hernia does appear incarcerated. 1. Admit to Surgery 2. NPO, NGT tube 3. MIVF with LR at 75ml/hr 4. Cbc, cmp, inr 5. Restart home medications 6. Incarcerated hernia -CT scan vs. OR today Demarcus Christopher MD, PGY1 [facility] [address] [place] [address] documented in this enc ounter Procedure Notes Danny Liu MD - 11/07/2012 9:07 AM PDTAssociated Order(s): REPAIR, VENTRAL HERNIA, I NCARCERATED, INITIALProcedure(s): REPAIR, VENTRAL HERNIA, INCARCERATED, INITIALPre-Procedure Diagnose(s): Incarcerated ventral herniaPost-Procedure Diagnose(s): Incarcerated ventral he rniaOperative Report Identifying Data: Dylan Romero [id number] Author: Danny Liu MD Date: 11/06/2012 Attending Surgeon and Service: Attending: Hernandez Chun MD Service: Emergency General Surgery Date of Procedure: 11/06/2012 Preoperative Diagnosis: Incarcerated Ventral Hernia Postoperative Diagnosis: Same Procedure Performed: 1) Exploratory laparotomy 2) Excision of excess skin and chronic wound infection 3) Primary ventral hernia repair 4) 19Fr Round Vanessa Drain 5) Staple skin closure Primary Surgeon: Hernandez Chun MD Tape Fastener Machine Operator Surgeons: MD Danny Kovacs MD Type of [...] for the entire procedure. DANNY LIU MD [id number] [place] [address] ERDanny Kelsey MD - 11/06/2012 2:07 PM [...] excision of excess skin and chronic wound, [facility] ventral hernia repair, 19Fr Round Vanessa [...] suture and skin contreras. DANNY LIU MD [facility] [id number]t [place] [address] documented in this encounter Consult Notes Raisa Landaverde MD - 11/06/2012 3:48 PM PDTI was present and rounded with the SUPERVISOR FORCE ADJUSTMENT today. I interviewed and examined the patient. I reviewed the history, as documented today. I agr ee with the SUPERVISOR FORCE ADJUSTMENT's assessment and plan. No evidence of bleeding. Will follow. Will wean to pre ssure support as tolerated. May need bronchoscopy. Critcal care time: 35 minutes RAISA LANDAVERDE MD [facility] [address] [place] [address] eeveNguyen PA-C - 11/06/2012 3:48 PM PDT [...] by the attending physician. NGUYEN CANSECO PA-C [facility] [id number] [place] [address] documented in this en counter Miscellaneous Notes [...] be driving pt to her home in [place]. No needs from at this time. Luz [...] and mo bility progress. 5. Assess skin K2fmevo and PRN. Educate on prevention of skin breakdown. Elevate heels and other pressure points. Ask MD to order nystatin powder for application underneath pannus. 6. Assess n/v P1qshct and PRN. Treat with PRN and/or scheduled [...] and mo bility progress. 5. Assess skin V2xgsla and PRN. Educate on prevention of skin breakdown. Elevate heels and other pressure points. Ask MD to order nystatin powder for application underneath pannus. 6. Assess n/v F6yewjz and PRN. Treat with PRN and/or scheduled anti-emetics. Educate on alt ernative techniques for nausea management (i.e. Side lying, distraction, deep breathing). andoff - Maria Luz, Claudia mujica RN - 11/12/2012 6:26 AM PDTPrimary focus of stay: 37 female admit from [place] w/ pos sible incarcerated hernia, N/V, abdominal [...] Wounds/Drains: transverse abdominal incision intact with contreras, rotary driller, DIAMOND drain x 1, needs frequent emptying, [...] 5/10 this shift and transitioni ng off AUTO CLUB TRAVEL COUNSELOR 2. Patient will demonstrate adequate oxygenation and perfusion d/b spo2>90% on RA this kristin ft. Interventions: 1. Patient will be encouraged to ask for oral pain med and use AUTO CLUB TRAVEL COUNSELOR sparingly. 2. Encourage patient to roll on [...] much pain medication patient is using on AUTO CLUB TRAVEL COUNSELOR 6. Administer migraine medication PRN for headache 7. Administer 1 L O2 when patient is sleeping 8. Evaluate patient's fluid balance and discuss with MD to DC her fluid since she is now t aking decent amount of liquid intake. Interventions that worked/didn't work:Patioent seems to be very comfortable but when woken up or when moving, she co pain 8/10. AUTO CLUB TRAVEL COUNSELOR was not used since 99. MD did [...] -drsg changed 11/08 , LR @ 125, AUTO CLUB TRAVEL COUNSELOR 0.1 q 8. Oral pain med given q 3 hour s 10 to 15 mg. Please try to wean off AUTO CLUB TRAVEL COUNSELOR Diet/GI:, CL, passing gas, BM meds started(11/10) CBGs: q6 : voids in BR, UTI Mobility: SBA, hats in BR. Only ambulated to BR tonight Wounds/Drains: transverse abdominal incision intact with contreras, rotary driller, DIAMOND drain x 1, needs frequent emptying, skin breakdown under pannus,wash, clean dry apply nystatin powder Critical labs: Critical meds: Antibiotics started for UTI Orders to follow up on: IV Mg replacement Last pain assessment/reassessment: abd pain 5-7/10, total 15mg oxygiven in 1.5 hours, AUTO CLUB TRAVEL COUNSELOR used minimally, turned off at around 4 [...] 5/10 this shift and transitioni ng off AUTO CLUB TRAVEL COUNSELOR 2. Patient will demonstrate adequate oxygenation and perfusion d/b spo2>90% on RA this kristin ft. Interventions: 1. Patient will be encouraged to ask for oral pain med and use AUTO CLUB TRAVEL COUNSELOR sparingly. 2. Encourage patient to roll on [...] much pain medication patient is using on AUTO CLUB TRAVEL COUNSELOR 6. Administer migraine medication PRN for headache [...] -drsg changed 11/08 , LR @ 125, AUTO CLUB TRAVEL COUNSELOR 0.2 q 8. Oral pain med given at 5pm Diet/GI:, CL, passing gas, BM meds started(11/10) CBGs: q6 : voids in BR, UTI Mobility: SBA, hats in BR. Only ambulated to BR tonight Wounds/Drains: transverse abdominal incision intact with contreras, rotary driller, DIAMOND drain x 1, needs frequent emptying, [...] control Prevent infection Interventions:assess the effectiveness of AUTO CLUB TRAVEL COUNSELOR at least Q 4hrs, encourage IS and ambulation, monitor vital signs, notify MD for any uncontrolled pain beyond prn medications, monitor wo und. Interventions that worked/didn't work:in process Of switching housing installer to oral pain medication, VSS, no acute [...] in 1-2 days. Barry Cerrato RN, BSN [employer] [place] [address] /[email or web address] lan [email or web address] Kevon Louise Vasyl Solitarion - 11/10/2012 9:00 AM PDTProblem: General Plan of Care (Adult) Intervention: NPEOC Acute Goals:pain under control Prevent infection Interventions:assess the effectiveness of AUTO CLUB TRAVEL COUNSELOR at least Q 4hrs, encourage IS and [...] will be encouraged/instructed on proper use of AUTO CLUB TRAVEL COUNSELOR and to inform RN if pain not [...] much pain medication patient is using on AUTO CLUB TRAVEL COUNSELOR 6. Administer migraine medication PRN for headache Interventions that worked/didn't work:Patient was drowsy after her night medication, barely used her AUTO CLUB TRAVEL COUNSELOR. Turned rate down d/t desat. May turn [...] -drsg changed 11/08 , LR @ 125, AUTO CLUB TRAVEL COUNSELOR 0.3 q 8. AUTO CLUB TRAVEL COUNSELOR turned down to 0.1 q 8 minutes [...] Last pain assessment/reassessment: 0445, pt drowsy but AUTO CLUB TRAVEL COUNSELOR was used minimally since 2330. I believe her Bipolar med and Trazadone made her drowsy. Awakable but went back to sleep ri ght away. Refused toileting when offered twice since 330. Absent of pain. pain well contro lled with AUTO CLUB TRAVEL COUNSELOR and prn meds Toradol, for headache, Floricet [...] will be encouraged/instructed on proper use of AUTO CLUB TRAVEL COUNSELOR and to inform RN if pain not [...] much pain medication patient is using on AUTO CLUB TRAVEL COUNSELOR 6. Administer migraine medication PRN for headache [...] /10 in abdomen, RN aware. addressed with AUTO CLUB TRAVEL COUNSELOR. Objective: Education: patient able to recall all [...] chair T ID Clau Quintero DPT Pager [phone] valuation - Brendon Mcgowan RN - 11/09/2012 1:05 PM PDTProblem: Pain Chronic (Adult, Obstetrics) Goal: Identify Signs and Symptoms and Related Risk Factors Goals: 1. Patient's pain will adequately controlled at or below a 5/10 this shift. 2. Patient will demonstrate adequate oxygenation and perfusion d/b spo2>90% on RA this kristin ft. Interventions: 1. Patient will be encouraged/instructed on proper use of AUTO CLUB TRAVEL COUNSELOR and to inform RN if pain not adequately controlled. AUTO CLUB TRAVEL COUNSELOR dose will be titrated for adequate pain [...] -drsg changed 11/08 , LR @ 125, AUTO CLUB TRAVEL COUNSELOR 0.3 q 8 Diet/GI: NPO exc meds, [...] Last pain assessment/reassessment: pain well controlled with AUTO CLUB TRAVEL COUNSELOR and prn meds Toradol, for headache, Nubain [...] will be encouraged/instructed on proper use of AUTO CLUB TRAVEL COUNSELOR and to inform RN if pain not adequately controlled. AUTO CLUB TRAVEL COUNSELOR dose will be titrated for adequate pain [...] Following Yuli Childs RD, CNSC, LD Pager# [phone] Comments: Dylan Romero is a 37 y.o. [...] mbulation and mobility progress. 5. Assess skin J1rngcu and PRN. Educate on prevention of skin breakdown. Elevate heels and other pressure points. Ask MD to order nystatin powder for application underneath pannus. 6. Assess n/v F8anwej and PRN. Treat with PRN and/or scheduled anti-emetics. Educate on alt ernative techniques for nausea management Interventions that worked/didn't work:Pt continues to refuse to turn in bed, pain controlle d with AUTO CLUB TRAVEL COUNSELOR Dilaudid,denied nausea My recommendations forward:Encourage ambulation, good [...] -drsg changed today , LR @ 125, AUTO CLUB TRAVEL COUNSELOR 0.2 q 8 Diet/GI: NPO exc meds, ice chips ok, passing gas CBGs: q6 : voids Mobility: SBA, up in chair once this shift Wounds/Drains: transverse abdominal incision, DIAMOND drain x 1, skin breakdown under pannus,was h, clean dry apply nystatin and cream,pillow case x1 Critical labs: Critical meds: UA sent Orders to follow up on: Last pain assessment/reassessment: pain well controlled with AUTO CLUB TRAVEL COUNSELOR and prn meds Toradol, for headache, Nubain [...] mbulation and mobility progress. 5. Assess skin D2yqwdi and PRN. Educate on prevention of skin breakdown. Elevate heels and other pressure points. Ask MD to order nystatin powder for application underneath pannus. 6. Assess n/v P5izvdn and PRN. Treat with PRN and/or scheduled anti-emetics. Educate on alt ernative techniques for nausea management lan of Care - Briana Flores RCP - 11/08/2012 2:50 PM PDT Problem: RT Goals & Interventions Goal: Evaluation History and Assessment Pulmonary problems: none 0Smoking history: History Smoking status Never Smoker Smokeless tobacco Not on file Results of recent Chest X-ray: CXR * 11/06/2012 Value: STUDY: MT CHEST 1 VIEW 11/06/12 16:46:00 INDICATION: Right upper lobe opacity. COMPARISON: Earlier same day a STUDY: MT CHEST 1 VIEW 11/06/12 16:46:00 COMPARISON: None. [...] at home for her lungs and can head well puller 1500mls on incentive spirometer. No treatment Nee ded from RT standpoint. valuation - Geneva Villalobos RN - 11/08/2012 11:58 AM PDTNo notes of Plan of Care type on file. Interventions that worked/didn't work:Goals:to get OOB, to have a sponge bath, pain managem ent, to advance diet, change CVC Interventions:assist with ambulation, 2 person, up to the chair, AUTO CLUB TRAVEL COUNSELOR, iv toradol, tylenol a s needed for headache, ice chips, SUPERVISOR FORCE ADJUSTMENT at the bedside , reposition, help/assist student [...] -drsg changed today , LR @ 125, AUTO CLUB TRAVEL COUNSELOR 0.2 q 8 Diet/GI: NPO exc meds, [...] Last pain assessment/reassessment: pain well controlled with AUTO CLUB TRAVEL COUNSELOR and prn meds Toradol, for headache, Nubain [...] tive device. Patient used motorized scooter in [facility] only. Patient / Family Goal: To return home Communication: Brazilian Barriers: none Pain: 7/10 in abdomen at rest; pressed AUTO CLUB TRAVEL COUNSELOR appropriately Vital signs: stable per observation on [...] 5) Staple skin closure Pre-admission living situation: [place], [place] Pre-admission functional status: Independent Family/support system: Jazmyn Darden Insurance/funding in place: [employer] [place] - Plus Anticipated discharge needs: Likely DC home, following for needs. Barry Cerrato RN, BSN [address] [address] [email or web address] [phone]/pg [phone] andamy - Ramon Austin RN - 11/08/2012 2:53 AM PDTRN EGS Handoff Report Primary focus of stay: incarcerated bowel and ileus, hernia repair 11/06 PmHx: HTN, DM, bipolar, depression, anxiety, migraines Pertinent physical findings: Vitals: vitals stable, but tachy at times Respiratory status: 4L NC, diminished in bases Isolation Precautions: none Access/fluids: RIJ and L PIV, LR @ 125, AUTO CLUB TRAVEL COUNSELOR 0.2 q 8 Diet/GI: NPO exc meds, [...] Last pain assessment/reassessment: pain well controlled with AUTO CLUB TRAVEL COUNSELOR/ Pt does think Dilaudid is giving her [...] mbulation and mobility progress. 5. Assess skin R9lhblj and PRN. Educate on prevention of skin breakdown. Elevate heels and other pressure points. Ask MD to order nystatin powder for application underneath pannus. 6. Assess n/v L6soiet and PRN. Treat with PRN and/or scheduled [...] RIJ and L PIV, LR @ 125, AUTO CLUB TRAVEL COUNSELOR 0.2 q 8 Diet/GI: NPO exc meds, NGT d/c today CBGs: q6 : FC Mobility: SBA, ambulated today on ICU Wounds/Drains: transverse abdominal incision, DIAMOND drain x 1, skin breakdown under pannus Critical labs: Critical meds: insulin drip?? Orders to follow up on: clarify insulin drip order Last pain assessment/reassessment: pain well controlled with AUTO CLUB TRAVEL COUNSELOR Psych/social issues: can be anxious at times Last visit (i.e. Falls/Activity/Comfort/Environment/Toileting/Skin): resting comfortably Anticipated or pending procedures: possible future [place] Discharge plan: TBD lan of Care - Anthony joanna Zari, [facility] - 11/07/2012 11:10 AM PDT Problem: [...] Chest X-ray: CXR * 11/06/2012 Value: STUDY: MT CHEST 1 VIEW 11/06/12 16:46:00 INDICATION: Right upper lobe opacity. COMPARISON: Earlier same day a STUDY: MT CHEST 1 VIEW 11/06/12 16:46:00 COMPARISON: None. [...] developing hydrostatic edema. Attend ing Radiologists: ANA D ELA FUENTE MD Author: ANA DE LA FUENTE [...] mbulation and mobility progress. 5. Assess skin D7ndaoj and PRN. Educate on prevention of skin breakdown. Elevate heels and other pressure points. Ask MD to order nystatin powder for application underneath pannus. 6. Assess n/v I4runcc and PRN. Treat with PRN and/or scheduled [...] mbulation and mobility progress. 5. Assess skin X7txcir and PRN. Educate on prevention of skin breakdown. Elevate heels and other pressure points. Ask MD to order nystatin powder for application underneath pannus. 6. Assess n/v D6djdle and PRN. Treat with PRN and/or scheduled anti-emetics. Educate on alt ernative techniques for nausea management (i.e. Side lying, distraction, deep breathing). Pl amanda NGT if ordered. andoff - Claudia Braga RN - 11/06/2012 5:42 AM PDTRN EGS Handoff Report Primary focus of stay: 37 female admit from [place] w/ possible incarcerated hernia, N/V, abdominal pain [...] in am, possible surgery? [facility] 11/06/2012 12:05 AM PDTDr Ny adv having trouble getting transport. Unable air. Th ey are trying to get a ground unit together. [facility] - 11/05/2012 10:54 PM PDTPer PPO [facility] rm [facility] - 11/05/2012 10:06 PM PDTConnected. 37 yof. Had appendectomy previ ously, developed hernia on L side of incision. Appears to be incarcerated possibly strangula emely. Pt 404 lbs. Unable to get CT scanned. Pt vomiting, started at [address] Chun accepts pt with a bariatric bed, req 14A. Paged grp 18. [facility] - 11/05/2012 10:[address] Ramires. Paged EGS [address] Chun. documented in this encounter Plan of Treatment +--------+ + + + + | Date | Type | Specialty | Care Team | Description | +--------+ + + + + | 04/04/ | Telephone-S | Surgery | Orquidea Cristobal, | | | 2020 | cheduled | | TECH ED TEACHER [address] | | | | | | [place], [place] | | | | | | [address] | | | | | | [phone] | | | | | | | [...] Mae | | | | | | [place] | | | | + + + [...] YAKOVAM | [address] | [place], [place] | | | [facility] | [address] | [address] | | | TESTS | | | [...] - [place] | [address] | [place], [place] | | | [facility] | [address] | [address] | | | TESTS | | | [...] [facility] | [address] | [place] [address] | | | SERVICES, CORE | PARK [...] | | | LABORATORY | | | CHILEAN | | | SERVICES, | | | [...] | + + + + + | [facility] | [address] | [place] [address] | | | SERVICES, CORE | CLARENCE [...] [facility] | [address] | [place] [address] | | | SERVICES, CORE | PARK [...] [facility] | [address] | [place], [place] | | | [facility] | [address] | [address] | | | TESTS | | | [...] AMES | [address] | [place], [place] | | | JUST[facility] CARE | [address] | [address] | | | TESTS | | | [...] MARQUAM | [address] | [place], [place] | | | [facility] | [address] | [address] | | | TESTS | | | [...] [facility] | [address] | [place], [place] | | | [facility] | [address] | [address] | | | TESTS | | | [...] AMES | [address] | [place], [place] | | | JUSTINE DAWN OF [place] | [address] | [address] | | | TESTS | | | [...] | + + + + + | [facility] | [address] | [place] [address] | | | SERVICES, LYDIA | CLARENCE [...] | | | LABORATORY | | | CHILEAN | | | SERVICES, | | | [...] [facility] | [address] | [place] [address] | | | SERVICES, CORE | [address] | | | + + + + + MAGNESIUM, PLASMA (11/11/2012 3:38 AM PDT) + +---------+ + + + | Component | Value | Ref Range | Performed | Pathologist | | | | | At | Signature | + +---------+ + + + | MAGNESIUM,P | 1.5 (L) | 1.8 - 2.5 mg/dL | [facility] | | | LASMA | | | [...] [facility] | [address] | [place] [address] | | | SERVICES, CORE | CLARENCE [...] [facility] | [address] | [place], [place] | | | [facility] [place] | [facility] | [address] | | | TESTS | | | [...] [facility] | [address] | [place], [place] | | | [facility]WN [facility] CARE | [address] | [address] | | | TESTS | | | | + + + + + CAPILLARY BLOOD GLUCOSE (NO CHG), POC (11/10/2012 12:39 PM PDT) + +-------+ + + + | Component | Value | Ref Range | Performed | Pathologist | | | | | At | Signature | + +-------+ + + + | BLOOD | 86 | 60 - 99 mg/dL | [facility] - | | | GLUCOSE, | [...] [place] | [address] | [place], [place] | | | [facility] [place] | [address] | [address] | | | TESTS | | | [...] AMES | [address] | [place], [place] | | | [facility] [place] | [facility] | [address] | | | TESTS | | | [...] [place] | [address] | [place], [place] | | | [facility] | [facility] | [address] | | | TESTS | | | [...] [facility] | [address] | [place] [address] | | | SERVICES, CORE | CLARENCE [...] | | | LABORATORY | | | CHILEAN | | | SERVICES, | | | [...] | + + + + + | [facility] | [address] | [place] [address] | | | SERVICES, CORE | CLARENCE [...] [facility] | [address] | [place] [address] | | | LYDIA RANGEL | CLARENCE [...] K[facility]AKU | [address] | [place], [place] | | | [facility] CARE | [facility] | [address] | | | TESTS | | | [...] AMES | [address] | [place], [place] | | | [facility] CARE | [facility] | [address] | | | TESTS | | | [...] AMES | [address] | [place], [place] | | | [facility] [place] | [address] | [address] | | | TESTS | | | [...] | | | Final CULTURE | | [place] | | | | RESULT:>100,000 cfu/ml | [...] + | [facility] | [address] | [place] [address] | | | [place] | | | | + + + [...] [facility] | [address] | [place] [address] | | | SERVICES, CORE | PARK [...] [facility] | [address] | [place] [address] | | | SERVICES, CORE [...] AMES | [address] | [place] | | | [facility] [place] | [facility] | [address] | | | TESTS | | | [...] | | | LABORATORY | | | CHILEAN | | | SERVICES, | | | [...] [facility] | [address] | [place] [address] | | | SERVICES, CORE | PARK [...] [facility] | [address] | [place] [address] | | | SERVICES, CORE | [address] | | | + + + + + MAGNESIUM, PLASMA (11/09/2012 4:06 AM PDT) + +---------+ + + + | Component | Value | Ref Range | Performed | Pathologist | | | | | At | Signature | + +---------+ + + + | MAGNESIUM,P | 1.2 (L) | 1.8 - 2.5 mg/dL | [facility] [...] | + + + + + | [facility] | [address] | [place] [address] | | | SERVICES, CORE | CLARENCE [...] + + + + | [facility] | [address] | [place] | | | [facility] [place] | [address] | [address] | | | TESTS | | | [...] [facility] | [address] | [place], [place] | | | [facility]ARE | [facility] | [address] | | | TESTS | | | [...] AMES | [address] | [place] | | | [facility] | [address] | [address] | | | TESTS | | | [...] [facility] | [address] | [place] [address] | | | SERVICES, CORE | CLARENCE [...] [facility] | [address] | [place] [address] | | | SERVICES, CORE | PARK [...] | | | LABORATORY | | | CHILEAN | | | SERVICES, | | | [...] [facility] | [address] | [place] [address] | | | SERVICES, CORE | CLARENCE [...] 92 | 60 - 99 mg/dL | [facility] - | | | GLUCOSE, | [...] + + + | [facility] | [address] | [place] | | | [facility] | [address] | [address] | | | TESTS | | | [...] [facility] | [address] | [place] | | | [facility] CARE | [address] | [address] | | | TESTS | | | [...] - [facility] | [address] | [place], [place] | | | [facility] | [facility] | [address] | | | TESTS | | | [...] [facility] | [address] | [place] [address] | | | SERVICES, CORE | [address] | | | + + + + + MAGNESIUM, PLASMA (11/07/2012 12:30 AM PDT) + +---------+ + + + | Component | Value | Ref Range | Performed | Pathologist | | | | | At | Signature | + +---------+ + + + | MAGNESIUM,P | 1.7 (L) | 1.8 - 2.5 mg/dL | [facility] [...] | + + + + + | [facility] | [address] | [place] [address] | | | SERVICES, CORE | CLARENCE [...] | | | LABORATORY | | | CHILEAN | | | SERVICES, | | | [...] [facility] | [address] | [place] [address] | | | LYDIA RANGEL | CLARENCE [...] | | + +---------+ + + | [facility] DEPARTMENT OF | | | | [...] [facility] | [address] | [place] [address] | | | SERVICES, CORE | PARK [...] | | | LABORATORY | | | CHILEAN | | | SERVICES, | | | [...] | + + + + + | [facility] | [address] | [place] [address] | | | SERVICES, CORE | CLARENCE [...] [facility] | [address] | [place] [address] | | | SERVICES, CORE | PARK [...] - [place] | [address] | [place] | | | [facility] [place] | [address] | [address] | | | TESTS | | | [...] - [place] | [address] | [place], [place] | | | [facility] CARE | [address] | [address] | | | TESTS | | | [...] AMES | [address] | [place] | | | [facility] CARE | [address] | [address] | | | TESTS | | | [...] L[place] | [address] | [place], [place] | | | [facility] CARE | [address] | [address] | | | TESTS | | | [...] [facility] | [address] | [place], [place] | | | [facility] [place] | [facility] | [address] | | | TESTS | | | [...] AMES | [address] | [place] | | | [facility]ARE | [address] | [address] | | | TESTS | | | [...] KWAKU | [address] | [place], [place] | | | [facility] [place] | [address] | [address] | | | TESTS | | | [...] [place] | [address] | [place], [place] | | | [facility] CARE | [facility] | [address] | | | TESTS | | | [...] + + + | [facility] | [address] | [place] | | | [facility] CARE | [facility] | [address] | | | TESTS | | | [...] [facility] | [address] | [place] | | | JUSTINE DAWN OF EK[place]ON | [address] | [address] | | | TESTS | | | [...] - [place] | [address] | [place], [place] | | | [facility] | [facility] | [address] | | | TESTS | | | [...] + | [facility] [employer] | [address] | [place] [address] | | | SERVICES, | [address] [...] [place] | [address] | [place] | | | [facility] | [facility] | [address] | | | TESTS | | | [...] [facility] | [address] | [place] [address] | | | SERVICES, | [address] [...] [facility] | [address] | [place] [address] | | | SERVICES, | [address] [...] [facility] | [address] | [place] [address] | | | SERVICES, CORE | PARK [...] | + + + + + | [facility] | [address] | [place] [address] | | | SERVICES, CORE | [address] | | | + + + + + MAGNESIUM, PLASMA (11/06/2012 6:28 AM PDT) + +---------+ + + + | Component | Value | Ref Range | Performed | Pathologist | | | | | At | Signature | + +---------+ + + + | MAGNESIUM,P | 1.7 (L) | 1.8 - 2.5 mg/dL | [facility] | | | LASMA | | [...] [facility] | [address] | [place] [address] | | | SERVICES, CORE | PARK [...] [facility] | [address] | [place] [address] | | | SERVICES, CORE | PARK [...] | | | LABORATORY | | | CHILEAN | | | SERVICES, | | | [...] + | [facility] [employer] | [address] | [place] [address] | | | SERVICES, CORE | PARK [...] view image for the detailed interpretation from [facility] results. | CARDIOLOGY | + + + + + + + + | Performing | Address | City/State/Zipcode | Phone Number | | Organization | | | | + + + + + | [facility] | [address] | [place], [place] | | | CARDIOLOGY | [address] | [address] | | + + + + + [...] [facility] | [address] | [place] [address] | | | SERVICES, LYDIA | [address]ARK [...] [facility] | [address] | [place] [address] | | | SERVICES, LYDIA | CLARENCE [...] | 1 tablet | | | | gfmuojnwad-ibponhbtfxtag-cwwbjooe | | 13 8:02 | | | [...] 13 7:36 | | | | | AUTO CLUB TRAVEL COUNSELOR infusion intravenous, | | PM PDT | [...] PDT | | | | | Until [facility] 11/11/12 at 0702 | | | | [...]
--- OUTSIDE RECORDS SUMMARY | ~2020-03-26 | XMS | Encounter Summary ---
Demographics + + + | Address | [address] | | | [place] [address] | + + + | Home Phone | | + + + | Preferred Language | Unknown | + + + | Marital Status | | + + + | Anabaptist Affiliation | Unknown | + + + | Race | White | + + + | Ethnic Group | Not or | + + + Author + + + | Author | [facility] | | | and Jeffana | + + + | Organization | [facility] | | [...] Team Providers + +------+ + | Care Mortgage Loan Reviewer Name | Role | Phone | [...] + + | 10/26/ | Virtual | [facility] | Sulema Altamirano | Chronic diastolic | | 2019 | Office | CARDIOLOGY [place] | [address] | heart failure (HCC) | | | Visit | [address] | [address] | (Primary Dx); | | | | [address] | [place] [address] | History of sinus | | | | [place] | [phone] | tachycardia; History | | | | [address] | | of stroke; HTN, | | | | [phone] | | goal below 130/80; | | [...] months documented in this encounter Progress Notes Sulema Altamirano FNP - 10/27/2019 1:00 PM PDTFormatting of [...] minutes of medical discussion via telephone visit (57110) Patient has not been seen in office within the past 7 days, and outcome of this call is not to recommend soonest available office visit. Return in about 4 months (around 02/26/2020) for bring medications to all clinic visits, eliza sousa complete testing and labs as ordered. Subjective: [...] dysfunction with previous dysfunctional RV treated at [facility] with diuresis and hospitalization for one month., sleep apnea treated with BiPAP, t ype II diabetes now resolved with weight loss, hypothyroidism, previous morbid obesity with alveolar hypoventilation, Frandy-en-Y gastric bypass surgery 02/2018, osteoarthritis,DVT and PE 2016, hypokalemia and hyperuricemia which is being followed by environmental safety specialist Dr. Fu, Her current and previous testing [...] to lose weight. She followed up with tool and production planner at [facility], Dr. Franks, who reported that her diabetes [...] weight loss. Hypothyroidism,followed by Dr. Kat alva, tool and production planner at [facility]) . Denies excessive thirst or hunger. [...] knee pain and hernia pain Lives in [facility] her mother who smokes. . Sister is complex care nurse. Grandchildren ages 4 and 7 live with he r daughter and son-in-law. Disabled , on disability .01/24/2019: working with [employer] to get her own place. Outpatient Medications Prior to Visit Medication Sig Dispense Refill ALPRAZolam (XANAX) 0.5 mg tablet Take 0.5-1 mg by mouth 3 times daily as needed. ascorbic acid (VITAMIN C) 500 MG tablet Take 1,000 mg by mouth Daily. atenolol (TENORMIN) 50 mg tablet Take 1 tablet by mouth nightly. 30 tablet 11 Bipehif-Uqtulovdt-Fyeoutp D (CITRACAL CALCIUM+D PO) Take 4 tablets [...] mL every day by injection route. rizatriptan (MAXALT-TRIMMER HAND) 5 mg disintegrating tablet Take 5 mg by mouth as needed for Mi graine. May repeat in 2 hours if needed spironolactone (ALDACTONE) 50 mg tablet Take 50 mg by mouth Daily. thyroid (PODIATRIC TECHNICIAN THYROID) 30 mg tablet PODIATRIC TECHNICIAN Thyroid 30 mg tablet TAKE ONE TABLET [...] , and aortic arch normal Echo: 01/02/2016 ([facility]): TDS, cardiac chamber dimensions grossly NML, LVEF >70%, rodriguez tolic function normal for patient. Unable to assess segmental wall motion. RV grossly norm al. Aortic valve sclerotic, no As/AI. Mitral and tricuspid valves grossly normal. Trace T R. No pericardial effusion VASCULAR TESTING AND PROCEDURES Left lower extremity DVT, presumed PE: 10/2015 [facility]. treated with heparin drip and Coumadin 10 in hospital, with Coumadin 6 months as outpatient, ASA 81 mg continued Venous US: right leg, 04/28/2016: No evidence of DVT. EKG E[facility] 10/27: ([facility] Normal sinus rhythm. Normal EKG. Rate 93 bpm, WA 172 ms, QRS 90 ms, QTC 465 ms personally reviewed by me in the office today) EK02/05: Sinus tachycardia, otherwise normal. Rate 160 bpm, WA 174 ms, QRS 74 ms, QTC 451 ms (personally reviewed by me in the office today and no significant change seen fro m EKG done in October 2016 except for faster heart rate) EK04/26/2018: Normal sinus rhythm, rate 74 bpm, WA 182 ms, QRS 96 ms, QTC 472 ms, alexandru genao personally reviewed by me, and compared to previous EKG, heart rate is now better controll ed, otherwise similar morphology EK04/28/2019: Normal sinus rhythm, right axis. Rate 74 bpm, WA 170 ms, QRS 88 ms, QTC 45 [...] elevated, requiring increased calcium dosing from her tool and production planner. She is being closely monitored with her [...] she needs to be retested for sleep heel slugger ea given her large weight loss, and if she has sleep apnea, her CPAP settings likely need to be adjusted. I have encouraged her to follow-up with him in the future when opportunity jordon lows. I made no changes to her [...] previous notes for continuity of care purp trina MARKS [facility] 10/28/2019 ERdomerritt han in this encounter [...] RICHEY | | | | | | [place] [address] | | | | | | [phone] | | | | | | | | +--------+ + + + + | 04/18/ | Procedure | Neurology | Camille De La Paz, | | | 2019 | visit | | MD Saumya MOE | | | | | | [address] | | | | | | [place] [address] | | | | | | [phone] | | | | | | | [...]
--- OUTSIDE RECORDS SUMMARY | ~2020-03-26 | XMS | Encounter Summary ---
Demographics + + + | Address | [address] | | | [place] [address] | + + + | Home Phone [...] + | Katalina Padilla | ECON | [address] | | | | | [place], [place] | | | | | [address] | | + + + + + | Ellie Vang | ECON | Unknown | | + + + + + Care Team Providers + +------+ + | Care Oil Laboratory Analyst Name | Role | Phone | + +------+ + | Kenyatta Cardenas MD | PCP | | + +------+ + Reason for Visit + +--------+ + | Reason | Onset | Comments | | | Date | | + +--------+ + | Lab Results | 09/25/ | | | | 2020 | | + +--------+ + Encounter Details +--------+ + + + + | Date | Type | Department | Care Team | Description | +--------+ + + + + | 09/25/ | Telephone | Cardiology | Randell Franks, | Lab Results | | 2020 | | Preventive at [facility] | MD [address] | | | | | [address] | [place], [place] | | | | | [facility] | [address] | | | | | and [place], | [phone] | | | | | [place] [address] | | | | | | [facility] [place] | | | | | | [address] | | | | | | [phone] | | | +--------+ + + + [...] Telephone Encounter - Anisa Massey RN - 09/28/2019 10:29 AM PSTI called and spoke with the patient and communicated the recommendations of Dr Franks. He suggests increasing her calc ium supplementation to 4 tablets twice daily (double previous dosing regimen). Her other med ications do not require adjustment at this time. Patient is agreeable to this plan. 1 0:30 AM PSTTelephone Encounter - Anisa Massey RN - 09/26/2019 4:02 PM PSTI called and spok e with the patient. She was wondering about her recent test results. I discussed her labs an d any information available in the plan per Dr Franks's office visit note. Will review poss ible medication adjustments with the provider and follow up with the patient in the next cou ple days. elephone Encounter - Leti Morrow - 09/26/2019 10:35 AM PSTTest Result Request Person calling: pt Which test result do you need: lab results from 09/15/19 Okay to send MyChart Response? pls call pt [phone] documented in this enc ounter Plan of Treatment +--------+ + + + + | Date | Type | Specialty | Care Team | Description | +--------+ + + + + | 04/04/ | Telephone-S | Surgery | Orquidea Cristobal, | | | 2020 | sherrill | | QUARTER INSPECTOR [address] | | | | | | [place] | | | | | | [address] | | | | | | [phone] | | | | | | | | +--------+ + + + + documented as of this encounter Visit Diagnoses Not on filedocumented in this encounter"
--- OUTSIDE RECORDS SUMMARY | ~2020-03-26 | XMS | Encounter Summary ---
Demographics + + + | Address | [address] | | | [place] [address] | + + + | Home Phone [...] [place], [place] | | | | | [address] | | + + + + + | Ellie Vang | ECON | Unknown | | + + + + + Care Team Providers + +------+ + | Care Vegetable Vendor Name | Role | Phone | + +------+ + | Fadi Goodrich DO | PCP | | + +------+ + Encounter Details +--------+ + + + + | Date | Type | Department | Care Team | Description | +--------+ + + + + | 12/29/ | Abstract | [facility] | Hernandez Brian, | | | 2012 | | [place] [address] [address] | [address] [facility] | | | | | [address] [facility] | [facility] | | | | | for [facility] and | [place], [place] | | | | | [facility] [address] | [address] | | | | | [place], [place] | [phone] | | | | | [address] | | | | | | [phone] | | | +--------+ + + + [...] | | 2019 | sherrill | | CONFIGURATION DEVELOPER [address] | | | | | | [place], [place] | | | | | | [address] | | | | | | [phone] | | | | | | | | +--------+ + + + + documented as of this encounter Visit Diagnoses Not on filedocumented in this encounter"
--- OUTSIDE RECORDS SUMMARY | ~2020-03-26 | XMS | Encounter Summary ---
Demographics + + + | Address | [address] | | | [place] [address] | + + + | Home Phone [...] [place], [place] | | | | | [address] | | + + + + + | Ellie Vang | ECON | Unknown | | + + + + + Care Team Providers + +------+ + | Care Layaway Clerk Name | Role | Phone | [...] | 2020 | Visit | Center at [facility] [address] | MD Jones [address] | (Primary Dx) | | | | [facility] | [facility] | | | | | [facility] and | [place], [place] | | | | | [facility] | [address] | | | | | [place], [place] | [phone] | | | | | [address] | | | | | | [phone] | | | +--------+---------+ + + + [...] recommend you go to the ED in [place] for workup of pulmonary embolism. I will [...] check. Of note, she was admitted to [facility] 09/02/2019 - 09/04/2019 for a large wound [...] Recommended patient present to the ED in [place] for workup of pulmonary embolism Will call [...] JONES WOO MD [facility] [address] [facility] Mailcode: [place] [address] documented in this encounter Plan of Treatment +--------+ + + + + | Date | Type | Specialty | Care Team | Description | +--------+ + + + + | 04/04/ | Telephone-S | Surgery | Orquidea Cristobal, | | | 2020 | sherrill | | GREEN MEAT GRADER [address] | | | | | | [place], [place] | | | | | | [address] | | | | | | [phone] | | | | | | | | +--------+ + + + + documented as of this encounter Visit Diagnoses + + | Diagnosis | + + | Postop check - Primary Follow-up examination, following unspecified surgery | + + documented in this encounter
--- OUTSIDE RECORDS SUMMARY | ~2020-03-26 | XMS | Encounter Summary ---
Demographics + + + | Address | [address] | | | [place] [address] | + + + | Home Phone [...] [place], [place] | | | | | [address] | | + + + + + | Ellie Vang | ECON | Unknown | | + + + + + Care Team Providers + +------+ + | Care Screen Printing Press Operator Name | Role | Phone [...] | 2015 | Visit | Center at [facility] [address] [facility] | (Primary Dx); | | | | [address] [place] | [facility] [address] | 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for [facility] and | [place], [place] | with insulin therapy | | | | [place] [address] | [address] | (HCC) | | | | [place], [place] | [phone] | | | | | [address] | | | | | | [phone] | | | +--------+---------+ + + + [...] + + documented in this encounter Progress Rossana Gray, HA - 12/26/2014 1:33 PM PDTFormatting of this note might be different fro m the original. Referring Provider: Fadi Goodrich DO [facility], Pre-Bariatric Surgery Visit Follow-up diet consult prior to having Frandy-En-Y gastric bypass surgery. Documented Time of Visit: 1:30 to 1:55 (25 minutes ezyg-uo-lccz with patient). Pt seen tog ether with Rossana Espinoza RD (training) SUBJECTIVE: Working with RN to get access to Mixwit war water exercises. States she was down to 374lbs by following LRD but with complications (n/v, fainting) - need to obtain records from PCP andresi t. Food Allergies: No Current Physical Activity: Nothing - plans to start swimming this week Diet Recall Midland (100kcal) + Activia Light - 60kcal Atkins [...] post-surgery diet progression. 4. Call or send [employer] message to dietitian with any questions. Contact information was provided. Follow up with dietitian via telephone 1 week after beginning water exercises for weight ch addie. Yuli Childs RD, CNSC, LD Pager# [phone] Rossana Espinoza MS, RD Pgr #[id number] documented i n this encounter Plan of Treatment +--------+ + + + + | Date | Type | Specialty | Care Team | Description | +--------+ + + + + | 04/04/ | Telephone-S | Surgery | Orquidea Cristobal, | | | 2020 | sherrill | | ELECTRONIC DIE MAKER [address] | | | | | | [place], [place] | | | | | | [address] | | | | | | [phone] | | | | | | | | +--------+ + + + + documented as of this encounter Procedures + +--------+ + + + | Procedure Name | Priori | Date/Time | Associated Diagnosis | Comments | | | ty | | | | + +--------+ + + + | ND MNT RE-ASSESSMNT | Routin | 12/27/2014 | Morbid obesity | | | X15MIN | e | 8:17 AM | ([facility]LY [facility]) Diabetes | | | | | PDT | mellitus with | | | | | | insulin therapy | | | | | | ([facility]) | | + +--------+ + + + documented in this encounter Visit Diagnoses + + | Diagnosis | + + | Morbid obesity ([facility]) - Primary Morbid obesity | + + | Diabetes mellitus with insulin therapy ([facility]) | + + documented in this encounter
--- OUTSIDE RECORDS SUMMARY | ~2020-03-26 | XMS | Encounter Summary ---
Demographics + + + | Address | [address] | | | [place] [address] | + + + | Home Phone [...] [place], [place] | | | | | [address] | | + + + + + | Ellie Vang | ECON | Unknown | | + + + + + Care Team Providers + +------+ + | Care Medical Logistics Specialist Name | Role | Phone | + +------+ + | Fadi Goodrich DO | PCP | | + +------+ + Reason for Visit + +--------+ + | Reason | Onset | Comments | | | Date | | + +--------+ + | Refill Request | 07/28/ | Phentermine | | | 2014 | | + +--------+ + | Refill Request | 07/31/ | | | | 2014 | | + +--------+ + Encounter Details +--------+--------+ + + + | Date | Type | Department | Care Team | Description | +--------+--------+ + + + | 07/28/ | Refill | Cardiology | Randell Franks, | Refill Request | | 2014 | | Preventive at [facility] | MD [address] | (Phentermine); | | | | [address] | [place], [place] | Refill Request | | | | [facility] | [address] | | | | | and [place], | [phone] | | | | | [place] [address] | | | | | | [place], [place] | | | | | | [address] | | | | | | [phone] | | | +--------+--------+ + + + [...] this encounter Miscellaneous Notes Telephone Encounter - CarmelaAntony pattersonseven Dunn - 07/31/2014 12:55 PM PST Reason for Call: Refill Request - Phentermine Refill Request Patient: Elzbieta Cristina Patient Contact Numbers: Home Phone Message: Description of reason for call: the pt is following up on status of refill Last Visit: 03/06/14 at 9:20 am Next Visit: Next Appointment in [facility] is on 08/28/14 at 10:20 am with Randell Franks MD. elephone Encounter - Corazon Kwon RN - 07/31/2014 10:34 AM PSTReceived refill request for Phentermine 37.5 mg, from patient (would like refill sent to [facility] in [place], [place]). Patient was last seen in clinic 03/09, by Dr Franks.Ms Cristina has follow up scheduled 08/28/14 . Setup prescription per protocol for signature by provider, and phone in: Pharmacy: [facility] [address] [facility] [place] [phone] elephone Deepti Rodriguez - 07/31/2014 10:25 AM PST Reason for Call: Refill Request - Phentermine Refill Request Patient: Elzbieta Cristina Patient Contact Numbers: Home Phone Message: Description of reason for call: Patient calling regarding refill of Phentermine. Patient ca lled in on Thursday07/28/14, completely of of medication, [facility] [place], [place] Last Visit: 03/06/14 at 9:20 am Next Visit: Next Appointment in [facility] is on 08/28/14 at 10:20 am with Randell Franks MD. elephone Encounter - Shayan Capellan - 07/28/2014 2:57 PM PSTFormatting of this note might be different from the origi nal. Reason for Call: Refill Request - Phentermine Patient: Elzbieta Cristina Patient Contact Numbers: Home Phone Message: Description of reason for call: Patient would like to call in a 3 month refill o f Phentermine to [facility] in [place], she is out of meds and doesn't see Dr. Loya ll until Aug 2014. Please contact patient for further information. Last Visit: 03/06/14 at 9:20 am Next Visit: Next Appointment in [facility] is on 08/28/14 at 10:20 am with Randell Franks MD. documented in this encounter Plan of Treatment +--------+ + + + + | Date | Type | Specialty | Care Team | Description | +--------+ + + + + | 04/04/ | Telephone-S | Surgery | Orquidea Cristobal, | | | 2019 | cheduled | | FLOOR COVERINGS SALESPERSON [address] | | | | | | [place], [place] | | | | | | [address] | | | | | | [phone] | | | | | | | | +--------+ + + + + documented as of this encounter Visit Diagnoses Not on filedocumented in this encounter"
--- OUTSIDE RECORDS SUMMARY | ~2020-03-26 | XMS | Encounter Summary ---
Demographics + + + | Address | [address] | | | [place] [address] | + + + | Home Phone [...] [place], [place] | | | | | [address] | | + + + + + | Ellie Vang | ECON | Unknown | | + + + + + Care Team Providers + +------+ + | Care Underlay Stitcher Name | Role | Phone | + +------+ + | Kenyatta Cardenas MD | PCP | | + +------+ + Reason for Visit + +--------+ + | Reason | Onset | Comments | | | Date | | + +--------+ + | Medical Records | 09/26/ | | | Review | 2020 | | + +--------+ + Encounter Details +--------+ + + + + | Date | Type | Department | Care Team | Description | +--------+ + + + + | 09/26/ | Abstract | Digestive Health | Chilo | Medical Records | | 2020 | | Center [place] [address] [address] | [address] | Review | | | | [facility] | [facility] | | | | | [facility] and | [place], [place] | | | | | [place] [address] | [address] | | | | | [place], [place] | [phone] | | | | | [address] | | | | | | [phone] | | | +--------+ + + + [...] | | 2019 | sherrill | | LINING CEMENTER [address] | | | | | | [place], [place] | | | | | | [address] | | | | | | [phone] | | | | | | | | +--------+ + + + + documented as of this encounter Visit Diagnoses Not on filedocumented in this encounter"
--- OUTSIDE RECORDS SUMMARY | ~2020-03-26 | XMS | Encounter Summary ---
Demographics + + + | Address | [address] | | | [place] [address] | + + + | Home Phone [...] [place], [place] | | | | | [address] | | + + + + + | Ellie Vang | ECON | Unknown | | + + + + + Care Team Providers + +------+ + | Care Ending Machine Operator Name | Role | Phone [...] | | gastric | [address] | [place] | | | | | bypass | [place], [place] | Pavilion, [address]th | | | | | Ventral | [address] | floor | | | | | hernia | Phone: | [place], [place] | | | | | without | [phone] | [address] | | | | | obstruction | Fax: | Phone: | | | | | or gangrene | [phone] | [phone] | | | | | Mixed | | Fax: | | | | | hyperlipidem | | [phone] | | | | | ia Diabetes [...] | | | | | | | HI UPPER GI | | | | | | | ENDOSCOPY,BI | | | | | | | OPSY HI | | | | | | | [...] | 2018 | Visit | Center at [facility] [address] | ACNP [address] | gastric bypass | | | | [address] | [address] [facility] [place] | (Primary Dx); | | | | for Health and | [address] | Ventral hernia | | | | Healing, [address] | [phone] | without obstruction | | | | [place], [place] | | or gangrene; Mixed | | | | [address] | | hyperlipidemia; | | | | [...] to POC and will call or send [employer] message if any issues. documented in [...] tongue once daily., Disp: , Rfl: CALCIUM CRB&MXU-V7-CRQ57-GENIS ORAL, Take 2 tablets by mouth two [...] Dr. Andie Brian Incisional hernia repair 03/01/2015 [facility]/ Dr. Cantu. Primary fascial closure and scar excision Lap gastric byp, and nilesh-en-y gastroenterostomy w/ nilesh limb 150 cm or less [facility] Social History Social History Marital status: Single Spouse name: N/A Number of children: 1 Years of education: N/A Occupational History disabled None Social History Main Topics Smoking status: Former Smoker Smokeless tobacco: Never Used Alcohol use No Drug use: No Sexual activity: Not on file Social History Narrative Updated 11/09/15 She lives in [place] with her mother and her sister (also her caregiver) lives in an [facility] rtment[facility]duplex below. She has 2 grandchildren (age 4 and 7) who live with her daughter and son-in-law Her boyfriend lives in [place] HFpEF, DM2, HTN, Sleep Apnea (unable to tolerate CPAP), Hypothyroidism, Severe Obesity ([facility]) Last [...] program here and refer her to our data entry specialist who also has expertise in physical [...] and documenting after this visit. Ronna SANTOSP SUPERVISOR COVERING AND LINING Bariatric Surgery Nurse Practitioner [facility] | [address] | [place], [place] | [address] | documented in this e ncounter Plan of Treatment +--------+ + + + + | Date | Type | Specialty | Care Team | Description | +--------+ + + + + | 04/04/ | Telephone-S | Surgery | Orquidea Cristobal, | | | 2019 | cheduled | | SUPERVISOR COVERING AND LINING [address] | | | | | | [place], [place] | | | | | | [address] | | | | | | [phone] | | | | | | | | +--------+ + + + + documented as of this encounter Results X-RAY MIIRAM CASTELLON (06/07/2018 9:47 AM PST) + + | Specimen | + + | | + + + + + | Narrative | Performed At | + + + | EXAM: Esophagram with coldfusion radiograph HISTORY: RYGB 03/01/2018, | [facility] | | vomiting/pain ever since COMPARISON: 04/27/2018 CT TECHNIQUE: | RADIOLOGY VOICE | | Director Life Sales radiograph was performed. Single contrast exam of the esophagus, | RECOGNITION 2 | | gastric pouch, and gastrojejunostomy in upright positioning. | | | Radiation dose reduction technique was maximized where appropriate | | | using pulsed fluoroscopy and fluoro-store images. Fluoro Time 57 | | | second(s) FINDINGS: Director Life Sales shows stone in the upper pole of [...] Note | + + | Service Account, [place] [facility] In Interface - 06/07/2018 11:18 AM PST EXAM: Esophagram | | with coldfusion radiograph HISTORY: RYGB 03/01/2018, vomiting/pain ever since COMPARISON: | | 04/27/2018 CT TECHNIQUE: Director Life Sales radiograph was performed. Single contrast exam of the | | esophagus, gastric pouch, and gastrojejunostomy in upright positioning. Radiation dose | | reduction technique was maximized where appropriate using pulsed fluoroscopy and | | fluoro-store images. Fluoro Time 57 second(s) FINDINGS:Director Life Sales shows stone in the upper | | [...] + + + + | [facility] | [address] | [place] [address] | | | SERVICES, CORE | CLARENCE [...] | [facility] | | considered for monitoring superintendent terminal glycemic control in patients with: | LABORATORY [...] + + + + | [facility] | [address] | [place] [address] | | | SERVICES, SPECIAL | PARK [...] | | | | | determined by [employer] | | | | | | Laboratories. See | | | | | | Compliance Statement B: | | | | | | [employer]/CSPerformed | | | | | | by [employer],[address] | | | | | | Liliana Martinez, [facility] [place] | | | | | | [address] | | | | | | [phone].[employer]. | | | | | | [facility] hospitalIsmael MD, | | | | | [...] [facility] | [address] | [place], [place] | | | UN[facility] | | [address] | | + + + + + [...] | | | LABORATORY | | | THAI | | | SERVICES, | | | [...] + + + | [facility] | [address] | [place] [address] | | | SERVICES, CORE | PARK [...] [facility] | [address] | [place] [address] | | | SERVICES, CORE | PARK [...] | + + + + + | [facility] | [address] | [place] [address] | | | SERVICES, CORE | CLARENCE [...] [facility] | [address] | [place] [address] | | | SERVICES, CORE | PARK [...] [facility] | [address] | [place] [address] | | | SERVICES, CORE | PARK [...] + + + + + | [facility] | [address] | [place] [address] | | | SERVICES, CORE | CLARENCE [...]
--- OUTSIDE RECORDS SUMMARY | ~2020-03-26 | XMS | Encounter Summary ---
Demographics + + + | Address | [address] | | | [place] [address] | + + + | Home Phone [...] [place], [place] | | | | | [address] | | + + + + + | Ellie Vang | ECON | Unknown | | + + + + + Care Team Providers + +------+ + | Care Neon Tube Bender Name | Role | Phone | + +------+ + | Kenyatta Cardenas MD | PCP | | + +------+ + Reason for Visit + +--------+ + | Reason | Onset | Comments | | | Date | | + +--------+ + | Medical Records | 09/06/ | | | Review | 2020 | | + +--------+ + Encounter Details +--------+ + + + + | Date | Type | Department | Care Team | Description | +--------+ + + + + | 09/06/ | Abstract | Digestive Health | Chilo | Medical Records | | 2020 | | Center [place] [address] | [address] | Review | | | | [facility] | [facility] | | | | | and | [place], [place] | | | | | [place] [address] | [address] | | | | | [place], [place] | [phone] | | | | | [address] | | | | | | [phone] | | | +--------+ + + + [...] | | 2019 | sherrill | | ICU RN [address] | | | | | | [place], [place] | | | | | | [address] | | | | | | [phone] | | | | | | | | +--------+ + + + + documented as of this encounter Visit Diagnoses Not on filedocumented in this encounter"
--- OUTSIDE RECORDS SUMMARY | ~2020-03-26 | XMS | Encounter Summary ---
Demographics + + + | Address | [address] | | | [place] [address] | + + + | Home Phone [...] [place], [place] | | | | | [address] | | + + + + + | Ellie Vang | ECON | Unknown | | + + + + + Care Team Providers + +------+ + | Care Cafeteria Associate Name | Role | Phone | [...] + + | 06/23/ | Hospital | [facility] [address] | Kaleb Wilcox MD | | | 2017 | Encounter | [address] | [address] | | | | | [address] | [place], [place] | | | | | [place], | [address] | | | | | [place] [address] | [phone] | | | | | [phone] | | | +--------+ + + + [...] hours or on weekends and holiday Hospital Brand Representative toll free [phone] ext. [phone] and have the GI doctor global expansion sales director paged. The provider who performed your procedure [...] | | 0 | | | | CRB&ITF-Y4-FHE02-GEN | mouth two times | | | [...] 2:35 PM PST PRE PROCEDURE NOTE: MR# [id number] Subjective: Elzbieta Cristina is a 43 y.o. [...] | | 2019 | sherrill | | INFORMATION SYSTEMS SECURITY MANAGER [address] | | | | | | [place], [place] | | | | | | [address] | | | | | | [phone] | | | | | | | [...] -----+ | MRN: | [facility] | | [id number] Date: 06/23/2018Patient Name: Elzbieta Curtis #: | ENDOSCOP Y | | [id number] of : 1975CSN: [id number] Type: | | | AmbulatoryRoom: SORProcedure: Upper GI | | | endoscopyIndications: Nausea with vomiting, Status post | | | Qqss-mn-APlybonhrj: KALEB WILCOX MD (Doctor), JOSE | | | NASIMA, Security Incident Response Engineer | | | (Security Incident Response Engineer)Referring MD: DANIELLE GARCÍAPRequestdonya | | | Provider: [...] | | | The Olympus [id number] Gastroscope #[id number] was | | | introduced through the [...] endoscope without resistance. The | | | otahu-pg-klyqvpv limb was characterized by healthy appearing | [...] | | | 06/23/2018 3:58 [facility] Letter to: FADI GOODRICH DO | | [...] + + + | [facility] | [address] | [place], [place] | | | [facility] | [address] | [address] | | | TESTS | | | [...] | | | | | | Until [facility] 06/24/18 at 0027, | | | [...] Thu06/23/18 at 1532, | | | Until [facility] 06/24/18 at 0027, | | | hypopnea | | + +---+ | | | + +---+ | ondansetron (ZOFRAN) injection | | | 4 mg 4 mg, intravenous, | | | POSTPROCEDURE PRN, 1 dose, | | | Starting [facility] 06/23/18 at 1532, | | | Until [facility] 06/24/18 at 0027, | | | [...] | | | PRN, 1 dose, Starting [facility] | | | | | | | 06/23/18 at 1532, Until [facility] | | | | | [...]
--- OUTSIDE RECORDS SUMMARY | ~2020-03-26 | XMS | Encounter Summary ---
Demographics + + + | Address | [address] | | | [place] [address] | + + + | Home Phone [...] + | Katalina Padilla | ECON | [address] | | | | | [place], [place] | | | | | [address] | | + + + + + | Ellie Vang | ECON | Unknown | | + + + + + Care Team Providers + +------+ + | Care Industrial Order Clerk Name | Role | Phone | [...] 2014 | | [address] | [address] | REPAIR | | | | [facility] | [address] | | | | | Hospital Admitting | [place], [place] | | | | | Des Located on the | [address] | | | | | 9th floor | [phone] | | | | | [place], [place] | | | | | | [address] | | | +--------+---------+ + + + [...] port site who was transferre d to [facility] for concern of an incarcerated hernia. [...] mouth once daily. , Historical Med CALCIUM [id number] ORAL Take 1 tablet by mouth two [...] 10:40 AM Randell Franks Cardiology Preventive at [facility] [phone] Cardiology 04/09/2015 1:00 PM Egs Ppv Tra Trauma Emergency General Surgery at [facility] [phone] TRAUMA CENT Outstanding labs/studies: None Discharging Physician: GABO LANGSTON MD Attending Physician: Dr. Cantu PCP: Fadi Goodrich DO Signed: GABO LANGSTON MD Pager #[phone] Surgical [address] [facility] Associated attestation - Tye Carrillo DO - 03/12/2015 9:12 AM PDTAttending: I discussed this patient with the resident and agree with the assessment and plan as outlin ed in this note and participated in the planning of care. Tye Carrillo DO, SIDRA, FACS Division of Trauma, Critical Care & Acute Care Surgery [facility] [phone] documented in this encounter Medications at Time of Discharge + + + +---------+--------+ + | Medication | Sig | Dispensed | Refills | Start | End Date | | | | | | Date | | + + + +---------+--------+ + | CALCIUM | Take 2 tablets by | | 0 | | | | [id number] | mouth two times | | | [...] might be differ ent from the original. [facility] [place] DEPARTMENT OF SURGERY EMERGENCY GENERAL SURGERY Division [...] obesity with known ventral hernias transferred to [facility] for surgical managem ent of ventral hernia, now s/p repair. Post surgical pain: -patient ready for d/c, discussed f/u. Patient lives far away and has other appointments at [facility]. Will attempt to coordinate appointments. Discharge Plan: D/c today GABO LANGSTON MD Pager #[phone] Surgical Revenue Field Aud[address] [facility] pSalomón campa Md R - 03/02/2015 1:12 PM PDT [facility] DEPARTMENT OF SURGERY EMERGENCY GENERAL SURGERY Division of Trauma and Critical Care Attending Physician: Shahid Cantu MD Progress Note Note Date: 03/02/2015 Admission Date: 2015 DYLAN ROMERO, Hospital Day #2 40 F PMH morbid obesity (BMI 71 today), DM2, depression, GERD, h/o stroke at age 18, and kn own ventral hernias transferred to [facility] for surgical treatment of suspected incarcerated [...] obesity with known ventral hernias transferred to [facility] for surgical managem ent of ventral [...] will be robel ing her home to [place], [place]. CALVIN ROMERO MD PGY-1 Anesthesiology Pager: [phone] [facility] A [address] [facility] [address] Marleny Oneill MD - 03/02/2015 8:26 AM [id number] Calvin William Md - 03/01/2015 5:34 PM PDT Brief Post Operative Note: 40 F PMH morbid obesity (BMI 71 today), DM2, depression, GERD, h/o stroke at age 18, and kn own ventral hernias transferred to [facility] for surgical treatment of incarcerated ventral [...] control CALVIN ROMERO MD PGY-1 Anesthesiology Pager: [phone] signed by Calvin Romero Md at 03/01/2015 5:41 PM PDTdocumente d in this encounter H&P Notes Jostin Brunner MD - 2015 8:12 PM PDTFormatting of this note might be differen t from the original. Emergency General Surgery - Admission Note Patient: Dylan Romero ([id number]) Author: Jostin Brunner MD Attending: Dagoberto Colón MD Date: 2015 Reason for Admission: Abdominal pain HPI: Dylan Romero is a 40 y.o. female with morbid obesity (BMI 71 today), DM2, depressi on, GERD, h/o stroke at age 18, and known ventral hernias who is transferred to [facility] from [facility] in [place], [place] with 3 days of abdominal pain, nausea, and several episo devin of emesis yesterday. She denies fevers, chills, and overlying skin changes. Last BM was yesterday, quite hard stool. CT was performed that demonstrated two distinct hernia defects in her midline. WBC was normal, UA mildly concerning, but otherwise no lab abnormalities. Romulo is is her third presentation to the ED in the past two months with abdominal pain. She is ad mitted to [facility] with concern for incarcerated ventral hernia. Ms Romero's surgical history includes open appendectomy with simultaneous primary umbilical hernia repair c/b MRSA wound infection requiring debridement in 2010, primary ventral hernia repair in 2012, and laparoscopic cholecystectomy in 2013. All surgeries have been performed at [facility]. She has known hernia recurrence in her ventral midline and umbilicus. She is parti cipating in the [facility] Bariatrics program and has lost 100 lbs with a low-carb diet. Her goal is to lose approximately 40 more pounds and then undergo gastric bypass. Past Medical History Diagnosis Date Neck pain [...] Ventral hernia repair 10/2012 Dr. Andie Brian Family History Problem Relation Alcohol/Drug Alcoholism in mother & father Hypertension M&F Asthma Father, brother, daughters Lung Disease Father Obesity M&F&Sister Diabetes Mother Arthritis M&F Heart Attack Father Diabetes Mother Socal History: Lives with her mother in [place], [place] Former smoker Denies alcohol, current smoking, and illicits Prior to Admission Medications Prescriptions ALPRAZolam 1 mg oral tablet Sig: Take 1 mg by mouth three times daily as needed for anxiety. CALCIUM CRB&[id number]-GENIS ORAL Sig: Take 1 tablet by mouth two [...] mouth twice weekly (on Thursday and ). magnesium oxide 400 mg oral tablet Sig: Take 400 mg by mouth once daily. metFORMIN 1,000 mg Oral tablet Sig: Take 1,000 mg by mouth once daily. oxyCODONE-acetaminophen 5-325 mg oral tablet Sig: Take 1 tablet by mouth every four hours as needed for severe pain. Not to exceed 10 ta blets per any 24 hour period. phentermine 37.5 mg oral tablet Sig: Take 1 tablet by mouth once daily in the morning. Administer before breakfast. piroxicam 20 mg Oral capsule Sig: Take 20 mg by mouth once daily. potassium chloride SR 10 mEq oral tablet,ER particles/crystals Sig: Take 10 mEq by mouth once daily. pseudoephedrine 60 mg oral tablet Sig: Take 120 mg by mouth two times daily. ranitidine 300 mg Oral tablet Sig: Take 300 mg by mouth once daily at bedtime. senna-docusate 8.6-50 mg Oral tablet Sig: Take 1 Tab by mouth two times daily. Patient taking differently: Take 1 tablet by mouth once daily as needed. thyroid (ARMOUR THYROID) 30 mg oral tablet tab Sig: Take 30 mg by mouth once daily. topiramate (TOPAMAX) 100 mg oral tablet Sig: Take 1 tablet by mouth two times daily. Patient taking differently: Take 200 mg by mouth once daily. traZODone 150 mg Oral tablet Sig: Take 150 mg by mouth once daily at bedtime. Facility-Administered Medications: None Review of Systems: Gen: Negative for fevers/chills HENT: Negative for changes in vision CV: Negative for chest pain, dysrhythmia Pulm: Negative for dyspnea GI: Positive for nausea and vomiting Known recurrent ventral hernias : Negative for dysuria, although diagnosed with UTI at transferring facility Heme: Negative for anemia, easy bruising, easy bleeding, or known disorders of coagulation Derm: Negative for erythema Endo: Diabetes type 2 Vitals: BP 141/80 | Pulse 99 | Temp 36.4 C (97.5 F) | RR 16 | Ht 1.549 m (5' 1") | Wt 170.4 kg (375 lb 10.6 oz) | SpO2 97% | BMI 71.02 kg/(m^2) Physical Exam: Gen: Alert and oriented, NAD, very pleasant woman Resp: Unlabored, CTA b/l CV: RRR, no m/r/g Abd: Soft, non-distended, obese Lower transverse incision has clearly healed via secondary intention, attributed to old ap pendectomy and MRSA infection. Umbilicus has bee surgical recreated Laparoscopic cholecystectomy scars well healed. The inferior/lateral scar in the RUQ is extremely tender to palpation, which feels as thou gh there is underlying bowel. No acute skin changes : No urinary catheter in place Labs: WBC: 9 Hgb: 11.5 Hct: 38.5 Plt: 256 Na: 138 K: 3.6 Cl: 106 CO2: 24 Cr: 0.79 BUN: 12 Glu: 128 AST: 13 ALT: 12 AlkP: 98 T Bili: 0.3 Alb: 3.8 Lipase: 14 Lactic acid: 1.5 Urinalysis: Leuk Est: 25 Nitrite: Negative WBC: 2 RBC: >50 Bacteria: rare Casts: Negative CT Abd, Pelvis with IV contrast 02/27/15: BY my read, there is a midline Lott hernia containing transversecolon without associat ed mesenteric stranding or free fluid. This is now larger than the most recent previous stud y in Nov, 2014. A second ventral midline defect is in the umbilicus, which is drawn very fa r inferiorly by her panus. 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 Lott hernia with colon Inferior hernia with fluid and bowel: CT Abd, Pelvis with IV contrast 12/02/14: Ventral hernia with colonic sidewall CT Abd, Pelvis with IV contrast 10/02/14: FINDINGS: LOWER THORAX: Unremarkable. LIVER: Unremarkable. BILIARY: The gallbladder is surgically absent. PANCREAS: Unremarkable. SPLEEN: Borderline splenomegaly is redemonstrated. ADRENALS: Unremarkable. KIDNEYS/URETERS: Left superior pole nonobstructing stone is redemonstrated measuring 9 mm. No obstructing stone. No hydronephrosis or perinephric fluid. PELVIC ORGANS/BLADDER: Unremarkable. GI TRACT: Unremarkable. PERITONEUM: The previously noted inferior ventral hernia has been repaired complicated by a small fascial defect containing sigmoid colonic sidewall, sagittal image 91. No associated bowel obstruction. A new ventral hernia is present located superiorly just to the right of midline which contains transverse colonic sidewall and mesenteric fat. The base of the hernia measures 2.3 cm in transverse dimension. Haziness at the root of the jejunal mesentery with associated mildly prominent lymph nodes is redemonstrated, consistent with mesenteric panniculitis. No free air or free fluid. LYMPH NODES: Prominent zechariah hepatic lymph node is redemonstrated. VESSELS: Unremarkable. BONES AND SOFT TISSUES: Unremarkable. IMPRESSION: 1. New small Lott ventral hernia containing transverse colon sidewall and mesenteric fat with a 2.3 cm base. No evidence for obstruction or strangulation. 2. Post surgical changes of inferior ventral hernia repair. The superior aspect of this hernia repair contains a tiny fascial defect with herniation of sigmoid colon sidewall. No resultant obstruction. 3. Stable left inferior renal pole obstructing stone. ASSESSMENT AND PLAN: Dylan Romero is a 40 y.o. female with morbid obesity, DM2, known recurrent umbilical he rnia, and worsening incisional hernia at one of her lap deidra port sites who presents with g radually worsening abdominal pain concerning for incarceration. Imaging over the past 5 nate hs has demonstrated slowly worsening incisional Lott hernia with a knuckle of transverse colon within. Ms. Romero did not tolerate attempt at reduction at the bedside. She may requir e surgical repair. Fortunately there are no alarm signs. She has no skin changes, no leukocy tosis, and is still having normal bowel function. 1. Admit to EGS 2. IVF: LR at 100 ml/hr 3. Continue all home medications 4. NPO midnight 5. AM CBC 6. DM2: insulin SS, hold home metformin and mixed insulin while NPO Jostin Brunner MD R3 EGS Pager: [phone] documented in this e ncounter Procedure Notes Shahid Cantu MD - 03/02/2015 9:15 AM PDTAssociated Order(s): OPERATION RECORDDate of S ervice: 03/01/2015 Attending Surgeon: Shahid Cantu MD Care Provider(s): Howie Angeles MD, R5 Marleny Galvan MD, R2 Preoperative Diagnosis: Incisional hernia. Postoperative Diagnosis: Incisional hernia. Procedure Performed: Primary incisional hernia repair and scar excision Findings: Incisional hernia containing transverse colon was encountered at a presumed prio r trocar site, likely from a prior cholecystectomy. The hernia was found to be tightly adhe red to the anterior fascia and required that the hernia sac was entered for complete reducti on. The colon was pink and viable, without evidence of ischemia. Attenuated fascia was also encountered, and the defect closed primarily. Complications: None apparent. Estimated Blood Loss: 25 mL. Fluids: Crystalloid administered during the procedure was 1 L. Specimens: None. Drains: None. Indications: Dylan Romero is a 40-year-old female with diabetes and morbid obesity with a B ND of 71, and known ventral hernia from the incision of a prior laparoscopic surgery. She w as transferred with three days of abdominal pain, nausea, and several episodes of vomiting. The patient elected to have her symptomatic hernia repaired, and was educated on the risks and benefits of the procedure. It was felt that the hernia was incarcerated and appropriate for reduction and repair. Procedure In Detail: The patient was brought in the operating room, transferred to the ope rating table in the supine position. General anesthesia was induced, a preoperative time-ou t held. All involved parties were present. The patient's identification and procedure to b e performed were correctly identified. The abdomen was then prepped and draped in the ignacio l sterile fashion. An eliptical incision was made around the previous scar overlying the palpable hernia. The scar was excised. Electrocautery and blunt dissection was used to continue dissection to t he hernia sac. Attempts were made to dissect the hernia sac fromsurrounding fascial defect. However, due to densely adhered tissue, the hernia sac was unable to be completely mobiliz ed without entering the peritoneum. The hernia sac was opened and a healthy appearing segme nt of transverse colon was reduced. Electrocautery was then used to remove the remaining sa c from the fascia and expose all fascial edges. Next, interrupted Maxon sutures were used t o reapproximate the fascial edges laterally. The subcutaneous tissue was then approximated with 4-0 Vicryl interrupted sutures. The subdermal layer was then also approximated with in terrupted absorbable sutures, and the skin closed with a running 4-0 Biosyn. The wound and surrounding skin was then cleaned and dried, and the incision covered with Dermabond and shilpa an dressing. The patient tolerated the procedure well. All counts were correct at the end of the case. Dr. Chris Cantu was present and scrubbed for the entirety of the case. Marleny Galvan MD Pursuant to federal Medicare and Medicaid regulations I was present for the entire procedur e. Shahid Cantu MD Application Coordinator Trauma, Critical Care & Acute Care Surgery Shahid Cantu MD TBK/MODL /[id number] signed by Shahid Cantu MD at 03/05/2015 10:25 AM Marleny Oneill MD - 03/01/2015 11:58 AM PDTAssociated Order(s): PROCEDURE NOTEBRIEF O PERATIVE NOTE Procedure Date: 03/01/2015 Author: MARLENY GALVAN MD Attending Physician: Chris Cantu MD Assistants: Howie Angeles, R5; Juma Galvan, R2; Nicole Barraza MS3; Smith Beaulieu MS3 Preoperative Diagnosis: Incisional Hernia Postoperative Diagnosis: same Procedure Performed: Primary Incisional hernia repair and scar revision Findings: Incisional hernia at presumed prior trocar site, peritoneum entered and hernia sa c removed, primary closure Complications: none apparent Fluids: EBL: 25ml, Crystalloid: 1000ml Specimens: None Drains: none Disposition: PACU then acute care Ruiz: Removed in OR Diet: ADAT to Regular DVT prophylaxis: okay to begin POD 1 at 2100 Antibiotic Plan: None Glycemic control: Resume previous schedule Dressing care: RN to remove dressing on post-op day # 1. Derm[address] Activity restrictions: Abdominal precautions Initial surgical contact: Juma Galvan at pager [phone] Associated attestation - Shahid Cantu MD - 03/02/2015 8:24 AM PDTA full operative note will be dictated by Dr. Marleny Galvan, the resident surgeon. Pursuant to federal Medicare and Medicaid regulations I was present for the entire procedur e including the critical portions. Shahid Cantu MD Application Coordinator Trauma, Critical Care & Acute Care Surgery documented in this encounter Miscellaneous Notes Handoff - Jj Arizmendi RN - 03/03/2015 10:35 AM PDTNursing Handoff Patient Daily Goal: Pain will be under control (03/03/1514) [facility] IP NURSE HANDOFF: Jiang hospital course events: Ventral hernia repair NURSING ASSESSMENT & RECOMMENDATIONS FORWARD Nursing Assessment of Patient Stability Risk: Moderately stable Recommendations Forward: VSS. Pain controlled. Pt tolerating diet, ambulating, active BT x4 . valuation - Milana Arizmendi RN - 03/03/2015 10:34 AM PDTNursing Discharge Note Discharge Date: 03/03/2015 Additional Discharge Information: VSS. PIV removed. AVS reviewed and signed. Hard copy of r x's sent to pharmacy. Pt left 10A with sister and 10A staff. Discharge Nurse: JJ ARIZMENDI RN andoff - Miladis Braga RN - 03/03/2015 12:47 AM PDTNursing Handoff Patient Daily Goal: Pain will be under control (03/03/1514) [facility] IP NURSE HANDOFF: COMFORT/ANXIETY/BEHAVIOR Patient Target: Patient pain level will be under control As evidenced by: Dylan wanted her 10mg of oxycodone every three hours overnight to keep her pain controlle d. She had asked to be woken up during the night when the medication was due to be given. OK N ibuprogen and tylenol was also offered in conjunction with oxycodone. NURSING ASSESSMENT & RECOMMENDATIONS FORWARD Nursing Assessment of Patient Stability Risk: Moderately stable Recommendations Forward: Continue to offer 10mg oxycodone Q 3 hrs alternating with tylenol and ibuprofen. Offer non-pharmacologic pain relief interventions in addition to pharmacologi c. andoff - Branden Hoyt RN - 03/02/2015 3:24 PM PDTNursing Handoff [facility] IP NURSE HANDOFF: Jiang hospital course events: Hernia Repair 8 PMH: morbid obesity, DM2, Gerd, HRN, stroke SAFETY Patient Target: Pt will follow abdominal precautions this shift. As evidenced by: Pt was able to properly ambulate with these precautions. A double abdominal binder was us ed and allowed patient to ambulate 2x this shift Progress to Target: Improving COMFORT/ANXIETY/BEHAVIOR Patient Target: Pt will have pain treated to tolerable levels all shift As evidenced by: Pt was put on pain regimen that she took prior to surgery. It has been adjusted and still needs further evaluation. NURSING ASSESSMENT & RECOMMENDATIONS FORWARD Nursing Assessment of Patient Stability Risk: Moderately stable Recommendations Forward: Monitor current pain management to evaluate effectiveness. Promote sleep and ambulation once more this evening. Plan for discharge tomorrow with adequate pain control lan of Care - Evette Milana - 03/02/2015 11:43 AM PDTProblem: Case Management Goals Goal: Discharge Needs Met Per chart review and/or discussion with patient/family members and team, no discharge plann ing assistance from RN CM anticipated at this time. Will continue to follow through discharg e. Please see other disciplines' progress notes for their discharge recommendations. Please page case management social worker if any CM arranged service needs arise. Patient states sister coming to [facility] [place] [id number] Mariah Chen RN - 03/02/2015 3:41 AM PDTNursing Handoff [facility] IP NURSE HANDOFF: Jiang hospital course events: Hernia Repair 03/01 PMH: morbid obesity, DM2, Gerd, HRN, stroke SAFETY Patient Target: Pt will follow abdominal precautions this shift. As evidenced by: Pt has newly ordered abdominal precautions due to the hernia repair that she had done on 03/01. She was educated on how to follow the precautions and was instructed to call for assist ance when ambulating to the bathroom so that we can help her with the plug of her IV pump. I spoke to the MD about an abdominal binder and he stated that he would like her to wear it all times. Progress to Target: Improving NURSING ASSESSMENT & RECOMMENDATIONS FORWARD Nursing Assessment of Patient Stability Risk: Moderately stable Recommendations Forward: Pt is voiding adequately after her ruiz catheter was pulled out o n 03/01. Pt is passing gas and is +flatus. Encourage pt to ambulate outside of room today. Co ntinue to administer pain medication as needed. Cynthia Fisher RN - 03/01/2015 1:23 PM PDTMeets Phase I Discharge Criteria (Stable For Transfer): Yes Major deviations/events or pertinent findings of katey-operative stay: pacu stay uneventful, pain treated post operatively. Oxygen weaned down to 2L Nc. Patient is tolerating ice ch ips well. Per patient she has a pain score of 4-5 in her abdomen at baseline Anticipated post-op needs/devices/follow up: Pain control, IS and cough + deep breathing. Blood sugar 128 * No Diagnosis Codes entered * Surgical Procedure Planned - Actual Procedure Performed: Procedure(s) with comments: VENTRAL HERNIA REPAIR - INCISIONAL HERNIA REPAIR Anesthesia: General Length of procedure: In Room/Out of Room: 2 Hr 14 Min 4 Sec Surgeon(s) and Role: * Shahid Cantu MD - Primary OR positioning comments: supine Neuro: POSS Sedation Level: Slighty Drowsy Last pain medication given: 1221 last dose fentanyl, 1300 last dose dilaudid Pain medication totals: 100 fentanyl, 1mg dilaudid Additional pain medication information: Functional Epidural: No DIRECTOR TOXICOLOGY: No Respiratory: RR: 20, O2 Sat: 96 %, O2 Delivery: Nasal cannula Breath Sounds: WDL Except ALFRED: clear;diminished LLL: clear;diminished RUL: clear;diminished RLL: clear;diminished AMARA No Comment: risk for AMARA due to obesity Cardiac: BP: 116/61 mmHg HR: 79 GI: Nausea/Vomiting Status: No Signs/Symptoms: Interventions: Assessment: Comments: no ponv : Last void: Ruiz Contact Name: Mom: Katalina Padilla Contact Number: [phone] Family contacted: Yes Comment: Will contact prior to transfer Belongings: with family lan of Charo Brewster RN - 03/01/2015 1:19 PM PDTProblem: Perioperative Period (Adult, Obstetrics) Goal: Signs and symptoms of listed potential problems will be absent or manageable (iliana story (Perioperative Period (Adult, Obstetrics)) CPG) Goals: 1. Patient will be hemodynamically stable post operatively 2. Patient will be free from respiratory distress post operatively 3. Patient will have a pain score of 4 or less post op Interventions: 1. Vital sign stable 2. Oxygen weaned down to 2l Nc, patient desats when sleeping 3. Pain treated post op, per patient she has a baseline pain score of 4-5 in the abdomen r egion. [facility] Galina Burton - 2015 6:15 PM PDTKishan Jones 1475, 40 yof, needs hernia operation , almost 400 lbs, 10/10 pain, baseline is 8/10 pain, given morphine 4 hours ago before [facility], vitals BP 120 systolic, hr 80-100, rr normal, now complaining of nausea likely from pain, pt on saline lock, medics are a BLS unit unable to give pain meds, ETA 15 mins Advised receiving RN Tomasz Medina - 2015 10:47 AM PDT40 yof, incarcerated incisional hernia, R Abdomen, tender, non-toxic, 100lb weight loss (goal 142lbs) morbid obesity, BMI 74, curre nt weight: 382lbs, BMI 74, Bariatric bed, Gen Surg Bed, Dr Gann. Transport TBD, pt on [facility] at [facility]. documented in this encounte r Plan of Treatment +--------+ + + + + | Date | Type | Specialty | Care Team | Description | +--------+ + + + + | 04/04/ | Telephone-S | Surgery | Orquidea Cristobal, | | | 2020 | cheduled | | [employer] [address] | | | | | | [place], [place] | | | | | | [address] | | | | | | [phone] | | | | | | | [...] | | Attending Surgeon: Shahid Cantu MD Care Provider(s): Howie Angeles MD, R5 | | Marleny Galvan MD, R2 Preoperative Diagnosis: | | Incisional [...] 03/02/2015 08:25:39DT: 03/02/2015 09:15:57Job #: | | [id number] | | | |Dr. Chris Cantu was present and scrubbed for the entirety of the case. | | | | | | | |Marleny Galvan MD | | | |Pursuant to federal Medicare and Medicaid regulations I was present for the entire procedur e. | | | | | | | |Shahid Cantu MD | |Application Coordinator | |Trauma, Critical Care & Acute Care Surgery | | | | | | | |Shahid Cantu MD | |TBK/CARLOSL | | | | | | /[id number] | + ---+ CAPILLARY BLOOD GLUCOSE (NO [...] - [facility] | [address] | [place], [place] | | | [facility] | [facility] | [address] | | | TESTS | | | [...] [facility] | [address] | [place], [place] | | | [facility] | [address] | [address] | | | TESTS | | | [...] [facility] | [address] | [place], [place] | | | [facility] | [facility] | [address] | | | TESTS | | | [...] [facility] | [address] | [place], [place] | | | [facility] | [facility] | [address] | | | TESTS | | | [...] [facility] | [address] | [place], [place] | | | [facility] | [address] | [address] | | | TESTS | | | [...] [facility] | [address] | [place], [place] | | | [facility] | [facility] | [address] | | | TESTS | | | [...] [facility] | [address] | [place] [address] | | | SERVICES, CORE | [facility] [...] [facility] | [address] | [place] [address] | | | SERVICES, CORE | CLARENCE [...] AMES | [address] | [place], [place] | | | [facility] | [address] | [address] | | | TESTS | | | [...] [facility] | [address] | [place], [place] | | | [facility] | [address] | [address] | | | TESTS | | | [...] - [facility] | [address] | [place], [place] | | | [facility] | [address] | [address] | | | TESTS | | | [...] [facility] | [address] | [place], [place] | | | [facility] | [address] | [address] | | | TESTS | | | [...] [facility] | [address] | [place], [place] | | | [facility] | [address] | [address] | | | TESTS | | | [...] | [facility] | [address] | [place] [address] | | | SERVICES, CORE | CLARENCE [...] [facility] | [address] | [place], [place] | | | [facility] | [address] | [address] | | | TESTS | | | [...]
--- OUTSIDE RECORDS SUMMARY | ~2020-03-26 | XMS | Encounter Summary ---
Demographics + + + | Address | [address] | | | [place] [address] | + + + | Home Phone [...] [place], [place] | | | | | [address] | | + + + + + | Ellie Vang | ECON | Unknown | | + + + + + Care Team Providers + +------+ + | Care Brass Wind Instruments Tube Bender Name | Role | Phone [...] + + | 03/01/ | Hospital | [facility] [address] | Bertha Castanon, | | | 2018 - | Encounter | [address] | [address] | | | | | [place], [place] | [place], [place] | | | 03/03/ | | [address] | [address] | | | 2017 | | [phone] | [phone] | | | | | | | [...] ACNP - 03/03/2018 9:49 AM PDT [facility] RED SURGERY INPATIENT DISCHARGE SUMMARY Author: [...] at minimum. 5. Follow with PCP for Interventional Pain Physician within 1 - 2 weeks of discharge [...] mg by mouth two times daily. CALCIUM [id number]-[id number]-GENIS ORAL Take 2 tablets by mouth two [...] yogurt or kefir. Nikko's Yogurt or Kefir, [place] Yogurt, and Chioban i Peruvian Yogurt are common brands with beneficial probiotics. [...] are available over the counter at most [facility] stores. Nausea/Vomiting/Difficulty Swallowing Nausea/Vomiting/Difficulty swallowing: Could [...] hours per your instructions. Some medications, like [place], have Tylenol in it. Make sure you [...] (PCP) as this clinic does not provide [facility] chronic pain management services. When to [...] hours by calling the surgery office at [phone]. - After hours, weekends and holidays, you may call the hospital nipping machine operator at [phone] an d have the senior operations analyst Red Surgery Team paged. OTHER DISCHARGE ORDERS [...] at minimum. 5. Follow with PCP for Interventional Pain Physician within 1 - 2 weeks of discharge [...] Department Dept Phone Center 03/10/2018 1:30 PM [facility] at [facility] 6th Floor [phone] FO OD AND NUT 03/10/2018 3:05 PM Ronna Clarke [facility] at [facility] 6th Floor [phone] [facility] 04/01/2018 10:30 AM [facility] at [facility] 6th Floor [phone] FO OD AND NUT 04/01/2018 11:00 AM Bertha Castanon [facility] at [facility] 6th Floor [phone] [facility] 05/27/2018 2:30 PM Dione Andre [facility] at [facility] 6th Floor [phone] FO OD AND NUT 05/27/2018 3:05 PM Ronna Caron [facility] at [facility] 6th Floor [phone] [facility] 05/27/2018 4:30 PM [facility] 15th Floor [phone] Comprehensiv 06/04/2018 10:35 AM Randell Franks Cardiology Preventive at [facility] [phone] Cardiology Discharging Physician: KAIN Agee Attending Physician: Bertha Castanon MD [facility] Red Surgery Pager# [phone] 9:50 AM 03/03/2018 documented in this enco [...] | | 0 | | | | [id number]-GEN | mouth two times | | | [...] date of discharge 03/03/18 PARTHA Calixto MS3 [facility] [employer] Demarcus Menon MD [...] for care ride home (pt lives in [place]) Demarcus Alas M.D. General Surgery Resident PGY-1 Pager: [phone] Bertha Ferrari MD - 10:00 AM PDTI [...] with the procedure today. Charo Shelley MD [facility] [address] [id number] [place] [address] documented in this en counter Procedure Notes [...] Primary Surgeon: Bertha Castanon MD Co Surgeon needle punch machine operator: Eldon Gonzalez MD, Chief Resident Alexx Irwin [...] The jejunum was divided with 60 mm Grandy stapler with white load and the distal staple line was marke d with silk suture. The mesentery was divided with harmonic ultrasonic device. The distal jejunum was measure to 150 cm. A stay-suture was placed at this location to the proximal di vided staple line (biliopancreatic limb). Enterotomies were created in each limb and a 60mm Grandy stapler with white load was fired to create a [id number]-fa-jjlh jejunojejunostomy. The anastamosis was confirmed to be widely patent and hemostatic. The common enterotomy was michael sed by placing 2 stay sutures along the enterotomy for retraction and firing an Grandy 60mm stapler with white load across the [...] the lesser sac was entered. The 60mm Grandy s tapler with blue load was placed [...] blue load of the 60mm stapler. The Grandy was then fired longitudinally towards the angle of His to create the gastric pouch, leaving the gastrotomy from foreign body remov al, on the pouch. Dissection was performed retrogastric to connect posterior and anterior d issection planes and ensure adequate fundus exclusion. Additional fires of the Grandy stap ler were performed with blue loads [...] ooze were controlled with 5 mm clip log operations coordinator. A 25mm Orvil was passed transorally by [...] The jejunal enterotomy was closed with 60mm Grandy stapler with a w demarcus load. Medially [...] and Dr. Wagner was present as my seismic survey assistant for th e entire procedure, given the technically challenging nature of this procedure. She assisted in all critical steps of the procedure. Dr. Gonzalez was present for endoscopy at the end of the procedure. Bertha Castanon MD, FACS, [facility] Bariatric Surgery documented in this en counter [...] Curre nt diabetic managed is provided by Interventional Pain Physician Dr. Franks. She is s/p Laparoscopic gas [...] Dr. Andie Brian Incisional hernia repair 03/01/2015 [facility]/ Dr. Cantu. Primary fascial closure and scar excision Outpatient Medications Prior to Admission Medications Prescriptions ALPRAZolam 1 mg oral tablet Sig: Take 1 mg by mouth three times daily as needed for anxiety. CALCIUM CRB&OKL-Y4-[id number]-GENIS ORAL Sig: Take 2 tablets by mouth [...] History Narrative Updated 11/09/15 She lives in [place] with her mother and her sister (also her caregiver) lives in an [facility] rtment/duplex below. She has 2 grandchildren (age 4 and 7) who live with her daughter and son-in-law Her boyfriend lives in [place] HFpEF, DM2, HTN, Sleep Apnea (unable to tolerate CPAP), Hypothyroidism, Severe Obesity ([facility] max weight 495 lbs) Last seen [...] program here and refer her to our client technologies specialist who also has expertise in physical [...] T2DM. Current diabetic managed is provided by Interventional Pain Physician Dr. Franks. Her home brittany men includes [...] at minimum. 4. Follow with PCP for Interventional Pain Physician within 1 - 2 weeks of discharge [...] re their care, or floor time with [facility] gallo RN(s) caring for this pt. This patient's assessment and plan was discussed with consult attending Dr. Dino August & Fellow Myke Bergeron. Kaylee Ferguson [facility] Endocrinology, Diabetes, & Clinical Nutrition Pager [phone] hyllisKaylee A [facility] - 03/02/2018 8:13 AM PDTFormatting of this [...] Curre nt diabetic managed is provided by Interventional Pain Physician Dr. Franks. She is s/p Laparoscopic gas [...] Dr. Andie Brian Incisional hernia repair 03/01/2015 [facility]/ Dr. Cantu. Primary fascial closure and scar excision Outpatient Medications Prior to Admission Medications Prescriptions ALPRAZolam 1 mg oral tablet Sig: Take 1 mg by mouth three times daily as needed for anxiety. CALCIUM CRB&FLH-B2-JLO41-GENIS ORAL Sig: Take 2 tablets by mouth [...] History Narrative Updated 11/09/15 She lives in [place] with her mother and her sister (also her caregiver) lives in an [facility] rt[place]/duplex below. She has 2 grandchildren (age 4 and 7) who live with her daughter and son-in-law Her boyfriend lives in [place] HFpEF, DM2, HTN, Sleep Apnea (unable to tolerate CPAP), Hypothyroidism, Severe Obesity ([facility] 495 lbs) Last seen by [...] program here and refer her to our client technologies specialist who also has expertise in physical [...] T2DM. Current diabetic managed is provided by Interventional Pain Physician Dr. Franks. Her home brittayn men includes Tresiba 67 units daily, Novolin [...] recommendations will follow closer to discharge [facility] Endocrinology, Diabetes, & Clinical Nutrition Pager [phone] I spent 25 minutes in the care [...] August & Fellow Myke Bergeron. P M Kaylee Tenorio AGACNP-BC - 03/01/2018 4:42 PM PDTFormatting of [...] Curre nt diabetic managed is provided by Interventional Pain Physician Dr. Franks. She is s/p Laparoscopic gas [...] Dr. Andie Brian Incisional hernia repair 03/01/2015 [facility]/ Dr. Cantu. Primary fascial closure and scar excision Outpatient Medications Prior to Admission Medications Prescriptions ALPRAZolam 1 mg oral tablet Sig: Take 1 mg by mouth three times daily as needed for anxiety. CALCIUM CRB&CAK-E4-MTC25-GENIS ORAL Sig: Take 2 tablets by mouth [...] History Narrative Updated 11/09/15 She lives in [place] with her mother and her sister (also her caregiver) [place] [facility] [place]. She has 2 grandchildren (age 4 and 7) who live with her daughter and son-in-law Her boyfriend lives in [place] HFpEF, DM2, HTN, Sleep Apnea (unable to [...] program here and refer her to our client technologies specialist who also has expertise in physical [...] T2DM. Current diabetic managed is provided by Interventional Pain Physician Dr. Franks. Her home brittany men includes [...] monitor. Recommendations: Place on Endotool. Kaylee Ferguson [facility] Endocrinology, Diabetes, & Clinical Nutrition Pager [phone] I spent 40 minutes in the care [...] re their care, or floor time with barron jacobsen gallo RN(s) caring for this pt. This [...] and when/how to notify the doctor. The credit risk officer spoke with her about her changes to her insulin regimen. Patient verbalized understanding. All peripheral lines rem lisbet. Patient voiding, passing flatus and pain adequately managed. All questions answered by nursing staff. Discharge Nurse: CHIRAG HARVEY RN andoff - Daniella Godwin RN - 03/03/2018 6:50 AM PDTNursing Handoff [facility] IP NURSE HANDOFF: Jiang hospital course events: [...] discharge: DC today lan of Care - Macy Zapata - 03/02/2018 2:44 PM PDTProblem: Nutrition Interventions [...] tanding of education, expect good compliance. Macy Leyva [employer]likBook Pager #[phone] andoff - Jasmin Godwin RN - 03/02/2018 [...] Advance diet today Pain and nausea managment andoff - Ra jose manuel Castaneda RN - 03/01/2018 6:00 PM PDTNursing Handoff [facility] IP NURSE HANDOFF: Jiang hospital course events: [...] Fresh post op Advance diet Pain control avio - Cande Oliveros RN - 03/01/2018 1:04 PM PDTMeets Phase I Discharge Criteria (Stable [...] Additional pain medication information: Functional Epidural: N/A MEAL COOKER: N/A Respiratory: RR: 12, O2 Sat: 100 [...] 106 mL Contact Name: Dimple Contact Number: [phone] Family contacted: Yes Comment Belongings: with family documented in this encounter Plan of Treatment +--------+ + + + + | Date | Type | Specialty | Care Team | Description | +--------+ + + + + | 04/04/ | Telephone-S | Surgery | Orquidea Cristobal, | | | 2019 | cheduled | | HOUSEHOLD MANAGER [address] | | | | | | [place], [place] | | | | | | [address] | | | | | | [phone] | | | | | | | [...] adult ([facility]) | results section. | + +--------+ + + + | CAPILLARY BLOOD | Routin | 03/03/2018 | Morbid obesity | Results for this | | GLUCOSE (NO CHG), | e | 7:54 AM | with BMI of 70 and | procedure are in the | | POC | | PDT | over, adult ([facility]) | results section. | + +--------+ + + + | CAPILLARY BLOOD | Routin | 03/03/2018 | Morbid obesity | Results for this | | GLUCOSE (NO CHG), | e | 6:28 AM | with BMI of 70 and | procedure are in the | | POC | | PDT | over, adult ([facility]) | results section. | + +--------+ + + + | CAPILLARY BLOOD | Routin | 03/02/2018 | Morbid obesity | Results for this | | GLUCOSE (NO CHG), | e | 9:17 PM | with BMI of 70 and | procedure are in the | | POC | | PDT | over, adult ([facility]) | results section. | + +--------+ + + + | CAPILLARY BLOOD | Routin | 03/02/2018 | Morbid obesity | Results for this | | GLUCOSE (NO CHG), | e | 6:50 PM | with BMI of 70 and | procedure are in the | | POC | | PDT | over, adult ([facility]) | results section. | + +--------+ + + + | CAPILLARY BLOOD | Routin | 03/02/2018 | Morbid obesity | Results for this | | GLUCOSE (NO CHG), | e | 3:46 PM | with BMI of 70 and | procedure are in the | | POC | | PDT | over, adult ([facility]) | results section. | + +--------+ + + + | CAPILLARY BLOOD | Routin | 03/02/2018 | Morbid obesity | Results for this | | GLUCOSE (NO CHG), | e | 2:36 PM | with BMI of 70 and | procedure are in the | | POC | | PDT | over, adult ([facility]) | results section. | + +--------+ + + + | CAPILLARY BLOOD | Routin | 03/02/2018 | Morbid obesity | Results for this | | GLUCOSE (NO CHG), | e | 1:33 PM | with BMI of 70 and | procedure are in the | | POC | | PDT | over, adult ([facility]) | results section. | + +--------+ + + + | CAPILLARY BLOOD | Routin | 03/02/2018 | Morbid obesity | Results for this | | GLUCOSE (NO CHG), | e | 11:36 AM | with BMI of 70 and | procedure are in the | | POC | | PDT | over, adult ([facility]) | results section. | + +--------+ + + + | CAPILLARY BLOOD | Routin | 03/02/2018 | Morbid obesity | Results for this | | GLUCOSE (NO CHG), | e | 10:32 AM | with BMI of 70 and | procedure are in the | | POC | | PDT | over, adult ([facility]) | results section. | + +--------+ + + + | CAPILLARY BLOOD | Routin | 03/02/2018 | Morbid obesity | Results for this | | GLUCOSE (NO CHG), | e | 9:23 AM | with BMI of 70 and | procedure are in the | | POC | | PDT | over, adult ([facility]) | results section. | + +--------+ + + + | CAPILLARY BLOOD | Routin | 03/02/2018 | Morbid obesity | Results for this | | GLUCOSE (NO CHG), | e | 8:36 AM | with BMI of 70 and | procedure are in the | | POC | | PDT | over, adult ([facility]) | results section. | + +--------+ + + + | CAPILLARY BLOOD | Routin | 03/02/2018 | Morbid obesity | Results for this | | GLUCOSE (NO CHG), | e | 7:35 AM | with BMI of 70 and | procedure are in the | | POC | | PDT | over, adult ([facility]) | results section. | + +--------+ + + + | CAPILLARY BLOOD | Routin | 03/02/2018 | Morbid obesity | Results for this | | GLUCOSE (NO CHG), | e | 6:33 AM | with BMI of 70 and | procedure are in the | | POC | | PDT | over, adult ([facility]) | results section. | + +--------+ + + + | CAPILLARY BLOOD | Routin | 03/02/2018 | Morbid obesity | Results for this | | GLUCOSE (NO CHG), | e | 5:28 AM | with BMI of 70 and | procedure are in the | | POC | | PDT | over, adult ([facility]) | results section. | + +--------+ + + + | CAPILLARY BLOOD | Routin | 03/02/2018 | Morbid obesity | Results for this | | GLUCOSE (NO CHG), | e | 4:36 AM | with BMI of 70 and | procedure are in the | | POC | | PDT | over, adult ([facility]) | results section. | + +--------+ + + + | CAPILLARY BLOOD | Routin | 03/02/2018 | Morbid obesity | Results for this | | GLUCOSE (NO CHG), | e | 2:46 AM | with BMI of 70 and | procedure are in the | | POC | | PDT | over, adult ([facility]) | results section. | + +--------+ + + + | CAPILLARY BLOOD | Routin | 03/02/2018 | Morbid obesity | Results for this | | GLUCOSE (NO CHG), | e | 12:32 AM | with BMI of 70 and | procedure are in the | | POC | | PDT | over, adult ([facility]) | results section. | + +--------+ + + + | CAPILLARY BLOOD | Routin | 03/01/2018 | Morbid obesity | Results for this | | GLUCOSE (NO CHG), | e | 10:31 PM | with BMI of 70 and | procedure are in the | | POC | | PDT | over, adult ([facility]) | results section. | + +--------+ + + + | CAPILLARY BLOOD | Routin | 03/01/2018 | Morbid obesity | Results for this | | GLUCOSE (NO CHG), | e | 8:21 PM | with BMI of 70 and | procedure are in the | | POC | | PDT | over, adult ([facility]) | results section. | + [...] adult ([facility]) | results section. | + +--------+ + + + | CAPILLARY BLOOD | Routin | 03/01/2018 | Morbid obesity | Results for this | | GLUCOSE (NO CHG), | e | 3:31 PM | with BMI of 70 and | procedure are in the | | POC | | PDT | over, adult ([facility]) | results section. | + +--------+ + + + | CAPILLARY BLOOD | Routin | 03/01/2018 | Morbid obesity | Results for this | | GLUCOSE (NO CHG), | e | 3:29 PM | with BMI of 70 and | procedure are in the | | POC | | PDT | over, adult ([facility]) | results section. | + +--------+ + + + | CAPILLARY BLOOD | Routin | 03/01/2018 | Morbid obesity | Results for this | | GLUCOSE (NO CHG), | e | 2:30 PM | with BMI of 70 and | procedure are in the | | POC | | PDT | over, adult ([facility]) | results section. | + +--------+ + + + | CAPILLARY BLOOD | Routin | 03/01/2018 | Morbid obesity | Results for this | | GLUCOSE (NO CHG), | e | 1:35 PM | with BMI of 70 and | procedure are in the | | POC | | PDT | over, adult ([facility]) | results section. | + +--------+ + + + | CAPILLARY BLOOD | Routin | 03/01/2018 | Morbid obesity | Results for this | | GLUCOSE (NO CHG), | e | 12:16 PM | with BMI of 70 and | procedure are in the | | POC | | PDT | over, adult ([facility]) | results section. | + [...] adult ([facility]) | results section. | + +--------+ + + + | LAPAROSCOPIC | Electi | 03/01/2018 | Morbid obesity | | | NISH-EN-Y GASTRIC | ve | 8:31 AM | ([facility]) | | | BYPASS | [...] MARQUAM | [address] | [place], [place] | | | [facility] | [address] | [address] | | | TESTS | | | [...] MARQUAM | [address] | [place], [place] | | | [facility] | [address] | [address] | | | TESTS | | | [...] AMES | [address] | [place], [place] | | | [facility] | [address] | [address] | | | TESTS | | | [...] MARQUAM | [address] | [place], [place] | | | [facility] | [address] | [address] | | | TESTS | | | [...] [place]QU[place] | [address] | [place], [place] | | | [facility] | [address] | [address] | | | TESTS | | | [...] AMES | [address] | [place], [place] | | | [facility] | [address] | [address] | | | TESTS | | | [...] MARQUAM | [address] | [place], [place] | | | [facility] | [address] | [address] | | | TESTS | | | [...] MARQUAM | [address] | [place], [place] | | | [facility] | [address] | [address] | | | TESTS | | | [...] AMES | [address] | [place], [place] | | | [facility] | [address] | [address] | | | TESTS | | | [...] MARQUAM | [address] | [place], [place] | | | [facility] | [address] | [address] | | | TESTS | | | [...] MARQUAM | [address] | [place], [place] | | | [facility] | [address] | [address] | | | TESTS | | | [...] AMES | [address] | [place], [place] | | | [facility] | [address] | [address] | | | TESTS | | | [...] MARQUAM | [address] | [place], [place] | | | [facility] | [address] | [address] | | | TESTS | | | [...] MARQUAM | [address] | [place], [place] | | | [facility] | [address] | [address] | | | TESTS | | | [...] (H) | 70 - 99 mg/dL | [facility] - | | | GLUCOSE, [...] AMES | [address] | [place], [place] | | | [facility] | [address] | [address] | | | TESTS | | | [...] YAKOVAM | [address] | [place], [place] | | | [facility] | [address] | [address] | | | TESTS | | | [...] - [facility] | [address] | [place], [place] | | | [facility] | [address] | [address] | | | TESTS | | | [...] (H) | 70 - 99 mg/dL | [facility] - | | | GLUCOSE, [...] AMES | [address] | [place], [place] | | | [facility] | [address] | [address] | | | TESTS | | | [...] MARQUAM | [address] | [place], [place] | | | [facility] | [address] | [address] | | | TESTS | | | [...] + | [facility] | [address] | [place], [place] | | | [facility] | [address] | [address] | | | TESTS | | | [...] + + + + + | [facility] | [address] | [place], [place] | | | [facility] | [address] | [address] | | | TESTS | | | [...] MARQUAM | [address] | [place], [place] | | | [facility] | [address] | [address] | | | TESTS | | | [...] MARQUAM | [address] | [place], [place] | | | [facility] | [facility] | [address] | | | TESTS | | | [...] (H) | 70 - 99 mg/dL | [facility] - | | | GLUCOSE, [...] AMES | [address] | [place], [place] | | | [facility] | [address] | [address] | | | TESTS | | | [...] MARQUAM | [address] | [place], [place] | | | [facility] | [address] | [address] | | | TESTS | | | [...] | [address] [facility] [address] | [place], [place] | | | [facility] | [address] | [address] | | | TESTS | | | | + + + + + EGD (ESOPHAGOGASTRODUODENOSCOPY) (03/01/2018 11:21 AM PDT) + + + | Narrative | Performed At | + + + | Bertha Castanon MD 03/01/2018 12:25 PM Date of Procedure: | | | 03/01/18 Primary Surgeon: Bertha Castanon MD Co Surgeon or | | | seismic survey assistant: Eldon Gonzalez MD, Chief Resident Alexx [...] The jejunum was divided with 60 mm Grandy stapler with white | | | load [...] created in each limb and a 60mm Grandy stapler | | | with white load was fired to create a mjmi-[id number]-kzek | | | jejunojejunostomy. The anastamosis was confirmed to be widely | | | patent and hemostatic. The common enterotomy was closed by placing | | | 2 stay sutures along the enterotomy for retraction and firing an | | | Grandy 60mm stapler with white load across the [...] | | | was entered. The 60mm Grandy stapler with blue load was placed | [...] blue load of the 60mm stapler. The Grandy was then fired | | | longitudinally towards the angle of His to create the gastric pouch, | | | leaving the gastrotomy from foreign body removal, on the pouch. | | | Dissection was performed retrogastric to connect posterior and | | | anterior dissection planes and ensure adequate fundus exclusion. | | | Additional fires of the Grandy stapler were performed with blue | | [...] with | | | 5 mm clip log operations coordinator. A 25mm Orvil was passed transorally by [...] was closed with 60mm | | | Grandy stapler with a white load. Medially and [...] was present | | | as my seismic survey assistant for the entire procedure, given the technically | | | challenging nature of this procedure. She assisted in all critical | | | steps of the procedure. Dr. Gonzalez was present for endoscopy at the | | | end of the procedure. Bertha Castanon MD, FACS, [facility] | | | Bariatric Surgery | | [...] MD Co Surgeon or | | | seismic survey assistant: Eldon Gonzalez MD, Chief Resident Alexx [...] The jejunum was divided with 60 mm Grandy stapler with white | | | load [...] created in each limb and a 60mm Grandy stapler | | | with white load was fired to create a [id number] | | | jejunojejunostomy. The anastamosis was confirmed to be widely | | | patent and hemostatic. The common enterotomy was closed by placing | | | 2 stay sutures along the enterotomy for retraction and firing an | | | Grandy 60mm stapler with white load across the [...] | | | was entered. The 60mm Grandy stapler with blue load was placed | [...] blue load of the 60mm stapler. The Grandy was then fired | | | longitudinally towards the angle of His to create the gastric pouch, | | | leaving the gastrotomy from foreign body removal, on the pouch. | | | Dissection was performed retrogastric to connect posterior and | | | anterior dissection planes and ensure adequate fundus exclusion. | | | Additional fires of the Grandy stapler were performed with blue | | [...] with | | | 5 mm clip log operations coordinator. A 25mm Orvil was passed transorally by [...] was closed with 60mm | | | Grandy stapler with a white load. Medially and [...] was present | | | as my seismic survey assistant for the entire procedure, given the technically | | | challenging nature of this procedure. She assisted in all critical | | | steps of the procedure. Dr. Gonzalez was present for endoscopy at the | | | end of the procedure. Bertha Castanon MD, FACS, [facility] | | | Bariatric Surgery | | [...] AMES | [address] | [place], [place] | | | [facility] | [facility] | [address] | | | TESTS | | | [...] over, adult ([facility]) - Primary | + + | Diabetes mellitus type 2 without retinopathy ([facility]) Type II or unspecified type |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 without mention of complication, not stated as uncontrolled | + + | AMARA treated with BiPAP | + + | Chronic diastolic heart failure ([facility]) Chronic diastolic heart failure | + + [...] | | | | Starting Thu03/01/18 at 0609, | | | | | [...] injection | | | 1 dose, Starting 03/01/18 at | | | 0612, Until Thu03/01/18 [...] | | | | | NEEDED, Starting 03/02/18 at | | | | | | [...] BEDTIME, First dose on | | | Tu03/02/18 at 1745, Until | | | Discontinued [...] PM PDT | | | | | Thu03/01/18 at 1203, Until Wed | | | [...]
--- OUTSIDE RECORDS SUMMARY | ~2020-03-26 | XMS | Encounter Summary ---
Demographics + + + | Address | [address] | | | [place] [address] | + + + | Home Phone [...] + | Katalina Padilla | ECON | [address] | | | | | [place], [place] | | | | | [address] | | + + + + + | Ellie Vang | ECON | Unknown | | + + + + + Care Team Providers + +------+ + | Care Animal Laboratory Helper Name | Role | Phone | [...] floor | | | | | | [place], [place] | | | | | | [address] | | | | | | [phone] | | | +--------+------+ + + + [...] | | 2019 | sherrill | | ANODE WORKER [address] | | | | | | [place], [place] | | | | | | [address] | | | | | | [phone] | | | | | | | [...] | + + + + + | [facility] | [address] [facility] | [place] [address] | | | SERVICES, CORE | CLARENCE [...] [facility] | [address] | [place] [address] | | | SERVICES, CORE | CLARENCE [...] | + + + + + | [facility] | [address] | [place] [address] | | | SERVICES, SPECIAL | PARK [...]
--- OUTSIDE RECORDS SUMMARY | ~2020-03-26 | XMS | Encounter Summary ---
Demographics + + + | Address | [address] | | | [place] [address] | + + + | Home Phone [...] [place], [place] | | | | | [address] | | + + + + + | Ellie Vang | ECON | Unknown | | + + + + + Care Team Providers + +------+ + | Care Territory Sales Representative Name | Role | Phone [...] | HA Roldan, | | | with LOADING MACHINE OPERATOR | | hypertension | [address] | GEMA JIANG | | | | | Right | [address] | [address] | | | | | heart | [place], [place] | [facility] | | | | | failure | [address] | Rd [facility] | | | | | ([facility]) Type | Phone: | [place] | | | | | 2 diabetes | [phone] | [address] | | | | | mellitus | Fax: | Phone: | | | | | without | [phone] | [phone] | | | | | complication | | Fax: | | | | | , with | | [phone] | | | | | long-term | | | | | | | current use | | | | | | | of insulin | | | | | | | ([facility]) | | | +--------+ + + + + + Encounter Details +--------+---------+ + + + | Date | Type | Department | Care Team | Description | +--------+---------+ + + + | 02/02/ | Office | [facility] | [address], | Morbid obesity with | | 2017 | Visit | Center at [facility] [address] | [facility] [place] [address] | BMI of 70 and over, | | | | [facility] | [address] | adult ([facility]) (Primary | | | | for Health and | [place], [place] | Dx); Type 2 | | | | Healing, [place] [address] | [address]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 | | | | [place], [place] | [phone] | without | | | | [address] | | complication, with | | | | [phone] | | long-term current | | | | | | use of insulin | | | | | | ([facility]); Chronic | | | | | | diastolic heart | | | | | | failure ([facility]) | +--------+---------+ + + + Social [...] this encounter Progress Notes Yuli Childs RD, CSOWJodie, [place] - 02/02/2017 10:00 AM PDTFormatting of this note might be diff erent from the original. Referring Provider: Fadi Goodrich DO [facility], Pre-Bariatric Surgery Visit Follow-up diet consult prior to having Frandy-En-Y gastric bypass surgery or Sleeve Gastrecto my. Documented Time of Visit: 10:03 to 10:30 (27 minutes ozeg-eu-zhsa with patient) (1 hour ap point not [...] eat like she should, tries to eat account processor things and this does not help. [...] Epic snap shot Medications for Diabetes: SSI (), Tresiba. Checking CBG's Dietary Supplements: K, Mag, [...] post-surgery diet progression. 4. Call or send [employer] message to dietitian with any questions. Contact information was provided. Follow up with dietitian prior to surgery (take 2 Weight management classes as part of 6 mo [facility] supervised diet). [address] RD, [facility], [place] [facility] Bariatrics [phone] documented i n this encounter Plan of Treatment +--------+ + + + + | Date | Type | Specialty | Care Team | Description | +--------+ + + + + | 04/04/ | Telephone-S | Surgery | Orquidea Cristobal, | | | 2020 | cheduled | | FINANCIAL WRITER [address] | | | | | | [place], [place] | | | | | | [address] | | | | | | [phone] | | | | | | | | +--------+ + + + + documented as of this encounter Procedures + +--------+ + + + | Procedure Name | Priori | Date/Time | Associated Diagnosis | Comments | | | ty | | | | + +--------+ + + + | MS MNT RE-ASSESSMNT | Routin | 02/02/2017 | Morbid obesity | | | X15MIN | e | 12:04 PM | with BMI of 70 and | | | | | PDT | over, adult ([facility]) | | | | [...] | | | | | heart failure ([facility]) | | + +--------+ + + [...]
--- OUTSIDE RECORDS SUMMARY | ~2020-03-26 | XMS | Encounter Summary ---
Demographics + + + | Address | [address] | | | [place] [address] | + + + | Home Phone | | + + + | Preferred Language | Unknown | + + + | Marital Status | | + + + | Pentecostal Affiliation | Unknown | + + + | Race | White | + + + | Ethnic Group | Not or | + + + Author + + + | Author | [facility] | | | and Jeffana | + + + | Organization | [facility] | | [...] + +------+ + | Care Room Service Manager Name | Role | Phone | + +------+ + PCP | Unavailable | + +------+ + Encounter Details +--------+ + + + + | Date | Type | Department | Care Team | Description | +--------+ + + + + | 11/04/ | Orders Only | [facility] | Conversion | | | 2016 | | NEPHROLOGY [place] | Transaction, | | | | | [address] | Provider Unknown | | | | | [address] [place], [place] | | | | | | [address] | (Fax) | | | | | [phone] | | | +--------+ + + + [...] | | | | | | [place] [address] | | | | | | [phone] | | | | | | | | +--------+ + + + + | 04/18/ | Procedure | Neurology | Camille De La Paz, | | | 2019 | visit | | MD Saum[address] MOE | | | | | | [address] | | | | | | [place] [address] | | | | | | [phone] | | | | | | | [...]
--- OUTSIDE RECORDS SUMMARY | ~2020-03-26 | XMS | Encounter Summary ---
Demographics + + + | Address | [address] | | | [place] [address] | + + + | Home Phone [...] [place], [place] | | | | | [address] | | + + + + + | Ellie Vang | ECON | Unknown | | + + + + + Care Team Providers + +------+ + | Care Underwriter Mortgage Loan Name | Role | Phone | + +------+ + | Fadi Goodrich DO | PCP | | + +------+ + Encounter Details +--------+ + + + + | Date | Type | Department | Care Team | Description | +--------+ + + + + | 02/10/ | Telephone | [facility] | Hernandez Brian, | | | 2012 | | [place] [address] [address] | MD [address] [facility] | | | | | [address] [facility] | [facility] | | | | | for Health and | [place], [place] | | | | | [facility] [address] | [address] | | | | | [place], [place] | [phone] | | | | | [address] | | | | | | [phone] | | | +--------+ + + + [...] says that she had a CT @ [facility] which indicated her hernia was redeveloped. Pain scale at 8-9/10. Patient taking Dilaudid. Please call back at [phone] signed by Vince Paul at 02/10/2013 11:57 AM PDTdocumented in this encounter Plan of Treatment +--------+ + + + + | Date | Type | Specialty | Care Team | Description | +--------+ + + + + | 04/04/ | Telephone-S | Surgery | Orquidea Cristobal, | | | 2020 | sherrill | | APARTMENT GROUNDSKEEPER [address] | | | | | | [facility], [place] | | | | | | [address] | | | | | | [phone] | | | | | | | | +--------+ + + + + documented as of this encounter Visit Diagnoses Not on filedocumented in this encounter"
--- OUTSIDE RECORDS SUMMARY | ~2020-03-26 | XMS | Encounter Summary ---
Demographics + + + | Address | [address] | | | [place] [address] | + + + | Home Phone [...] + + + | Author | [facility] | | | and Jeffana | + + + | Organization | [facility] | | [...] Team Providers + +------+ + | Care Lift Team Technician Name | Role | Phone | [...] + + | 06/27/ | Telephone | [facility] | Dharmesh Fierro, | Follow-up(Procedure) | | 2018 | | INTERVENTIONAL | RN | | | | | RADIOLOGY [address] | | | | | | [address] | | | | | | [place] | | | | | | [address] | | | | | | [phone] | | | +--------+ + + + [...] | Visit | | HILDA [address] | | | | | | [address] | | | | | | [place] [address] | | | | | | [phone] | | | | | | | | +--------+ + + + + | 04/18/ | Procedure | Neurology | Camille De La Paz, | | | 2019 | visit | | MD Saum[address] MOE | | | | | | [address] | | | | | | [place] [address] | | | | | | [phone] | | | | | | | | +--------+ + + + + documented as of this encounter Visit Diagnoses Not on filedocumented in this encounter"
--- OUTSIDE RECORDS SUMMARY | ~2020-03-26 | XMS | Encounter Summary ---
Demographics + + + | Address | [address] | | | [place] [address] | + + + | Home Phone [...] + | Katalina Padilla | ECON | [address] | | | | | [place], [place] | | | | | [address] | | + + + + + | Ellie Vang | ECON | Unknown | | + + + + + Care Team Providers + +------+ + | Care Senior Engineer Name | Role | Phone | + +------+ + | Fadi Goodrich DO | PCP | | + +------+ + Encounter Details +--------+ + + + + | Date | Type | Department | Care Team | Description | +--------+ + + + + | 11/04/ | Telephone | [facility] | Leslie Mistry, | | | 2017 | | [address] | PhD [address] [facility] | | | | | [facility] | [facility] | | | | | and Healing, | [place], [place] | | | | | [facility] | [address] | | | | | Floor [place], [place] | [phone] | | | | | [address] | | | | | | [phone] | | | +--------+ + + + [...] Name: Elzbieta Cristina : 1975 Medical Record: [id number] Age: 42 y.o. Weight on 10/30/17: 394 [...] the phone. Leslie Mistry, PhD Clinical Psychologist [facility] [address] [facility] and [facility], 15th Floor [place] [id number] [phone] signed by Leslie Mistry, PhD at 11/04/2017 9:50 AM PDTdocume nted in this encounter Plan of Treatment +--------+ + + + + | Date | Type | Specialty | Care Team | Description | +--------+ + + + + | 04/04/ | Telephone-S | Surgery | Orquidea Cristobal, | | | 2019 | chesteve | | NASCAR PIT CREW PERSON [address] | | | | | | [place], [place] | | | | | | [address] | | | | | | [phone] | | | | | | | | +--------+ + + + + documented as of this encounter Visit Diagnoses Not on filedocumented in this encounter"
--- OUTSIDE RECORDS SUMMARY | ~2020-03-26 | XMS | Encounter Summary ---
Demographics + + + | Address | [address] | | | [place] [address] | + + + | Home Phone [...] [place], [place] | | | | | [address] | | + + + + + | Ellie Vang | ECON | Unknown | | + + + + + Care Team Providers + +------+ + | Care Angiographer Name | Role | Phone | + [...] Davis | | | | | [facility] | [facility] | | | | | Hospital Admitting | [place] [address] | | | | | Desk Located on the | [phone] | | | | | 9th floor | | | | | | [place], [place] | [place], | | | | | [address] | MANUFACTURING PROJECT ENGINEER | | +--------+ + + + + Anesthesia Record + + + + + | Procedure Name | Responsible | Anesthesia Start | Anesthesia Stop Time | | | Anesthesiologist | Time | | + + + + + | OPEN VENTRAL HERNIA | Andie Hope MD | 08/19/19 1417 | 08/19/19 8759 | | REPAIR (N/A ) | | [...] | | | , POLINA; Endotracheal | MANUFACTURING PROJECT ENGINEER | MANUFACTURING PROJECT ENGINEER | | | Tube; 7.5; Oral; Cuffed; [...] + + documented as of this encounter [place] Notes Anesthesia Postprocedure Evaluation - Sheree Herrmann CRNA - 08/19/2019 5:36 PM PSTFor matting of this note might be different from the original. Elzbieta Cristina [id number] Vitals Value Taken Time BP 107/67 08/19/2019 5:33 PM Temp 36.6 C (97.8 F) 08/19/2019 5:33 PM Pulse 72 08/19/2019 5:35 PM Resp 10 08/19/2019 5:35 PM SpO2 100 % 08/19/2019 5:35 PM Vitals shown include unvalidated device data. EVALUATION VS (BP, HR, RR, SpO2, and Temp) and hydration status are stable ROS including Cards, Resp, Neuro, and GI without evidence of adverse effects No PONV Pain controlled No altered mental status COMPLICATIONS No adverse events nesthesia Proce dure Notes - [place] CRNA - 08/19/2019 3:26 PM PSTAssociated Order(s): ETTAIRWAY MANAGEMENT - ETT Time of Placement: 08/19/2019 2:35 PM Intubation Reason: For surgical procedure Positioning: Supine Location Performed:OR OXYGENATION Patient was preoxygenated Apneic oxygenation Grade: Grade 1 - Ventilated by mask Induction:Routine INTUBATION ATTEMPT 1 Blade Type: Mario Blade #: 3 Laryngoscopic View: Grade I ETT DETAILS ETT Type:Standard, Hi-Lo Cuffed Intubation Type: Oral Cuff Status: Cuffed Size: 7.5 Depth at Lip: 23 cm Airway Leak: No CONFIRMATION airway not difficult Number of Attempts: 1 Atraumatic placement Positive for EtCO2:Waveform capnography Breath Sounds: Bilateral and equal NARRATIVE Attending was physically present for the critical portions of the procedure as described in the procedure note Attending/Authorizing Provider: Andie Hope MD Performing Provider: [place] CRNA nesthesia Preprocedure Evaluation - [place], POLINA - 08/19/2019 1:53 PM PST Elzbieta Cristina [id number] Allergies Allergen Reactions Benadrilina [Diphenhydramine Hcl] Hives and Throat Swelling / Closing Amoxicillin Hives Parlodel [Bromocriptine] Unknown Blood clots Penicillins Hives Zofran [Ondansetron Hcl (Pf)] Hives NPO: MN Last Vitals Temp: 36.6 C (97.9 F) Heart Rate: 74 Resp: 18 BP: 128/73 SpO2: 97 % O2 Delivery Device: None (room air) Preg Status/LMP /Could Be : Not HCG Test: Patient refused Patient Active Problem List Diagnosis Hernia Severe [...] of Nilesh-en-Y gastric bypass Impaired intestinal absorption Hypothyroidism Incarcerated hernia Past Surgical History Procedure Laterality Date Tonsillectomy [...] w/ nilesh limb 150 cm or less [facility], Dr Pandey Cholecystectomy, laparoscopic Current Medication List Name Sig Last Dose ALPRAZOLAM 1 MG TABLET Take 1 mg by mouth three times daily as needed. 08/18/2019 ASCORBIC ACID (VITAMIN C) 500 MG TABLET Take 1 tablet by mouth once daily. 08/18/2019 ATENOLOL 50 MG TABLET Take 50 mg by mouth once daily at bedtime. Within last 7 days CALCIUM CRB&RFV-D5-XYU09-GENIS ORAL Take 2 tablets by mouth two times daily. 08/17/2019 CHLORPHENIRAMINE-PHENYLEPHRINE ORAL Take 1 tablet by mouth every four hours as needed. CHLORPROMAZINE 25 MG TABLET Take 50 mg by mouth once daily at bedtime. 08/17/2019 CYANOCOBALAMIN (VIT B-12) 1,000 MCG TABLET Take 1,000 mcg by mouth once daily. 08/17/2019 DOCUSATE SODIUM 100 MG CAPSULE Take 200 mg by mouth two times daily. 08/17/2019 ENOXAPARIN 120 MG/0.8 ML SUBCUTANEOUS SYRINGE INJECT 1 SYRINGE DIRECTED EVERY 12 HOURS W ithin last 7 days ERGOCALCIFEROL (VITAMIN D2) 1,250 MCG (50,000 UNIT) CAPSULE Take 1 capsule by mouth every s even days. Within last 7 days FERROUS GLUCONATE 324 MG (36 MG IRON) TAB (MG DOSING UPDATE) Take 1 tablet by mouth once da mireya. 08/17/2019 INTRAUTERINE DEVICE (IUD) UTRN by intrauterine route. LOPERAMIDE 2 MG CAPSULE Take 2 mg by mouth four times daily as needed for diarrhea. Within last 7 days LURASIDONE 20 MG TABLET Take 40 mg by mouth once daily at bedtime. 08/17/2019 MAGNESIUM OXIDE 400 MG (241.3 MG MAGNESIUM) TABLET Take 400 mg by mouth two times daily. GOLD RICHARD MEDICATED TOP Apply to infected area two times daily. METOCLOPRAMIDE 10 MG TABLET Take 10 mg by mouth every six hours as needed for nausea/vomiti ng. 08/18/2019 MULTIVITAMIN TABLET (THERAPEUTIC) Take 1 tablet by mouth once daily. 08/17/2019 PAROXETINE 40 MG TABLET Take 40 mg by mouth once daily at bedtime. 08/17/2019 PHENTERMINE 37.5 MG TABLET Take 1 tablet by mouth once daily in the morning. Administer bef ore breakfast. 08/17/2019 POTASSIUM CHLORIDE 20 MEQ ORAL PACKET Take 40 mEq by mouth two times daily. 08/17/2019 PRAMIPEXOLE 0.125 MG TABLET Take 0.25 mg by mouth once daily at bedtime. 08/17/2019 RIZATRIPTAN 5 MG TABLET Take 5 mg by mouth as needed. May repeat in 2 hours as needed (Max: 30 mg per 24 hour period). 08/17/2019 SPIRONOLACTONE 50 MG TABLET Take 50 mg by mouth once daily. 08/17/2019 THYROID (PORK) 30 MG TABLET Take 30 mg by mouth once daily at bedtime. 08/17/2019 TOPIRAMATE 50 MG TABLET Take 1 tablet by mouth two times daily. May increase by 1 tab twice daily every 2 weeks, as tolerated. Max dose is 2 tabs twice daily. 08/17/2019 TORSEMIDE 100 MG TABLET Take 100 mg by mouth two times daily. Resume half dose for first we ek post opertative 08/17/2019 WARFARIN 5 MG TABLET Take 10 mg by mouth once daily. Within last 7 days Lab Results Component Value Date RATE 110 02/22/2018 ATRIALRATE 110 02/22/2018 SD 170 02/22/2018 QRS 98 02/22/2018 QT 339 02/22/2018 QTC 475 11/06/2012 PAXIS 44 02/22/2018 RAXIS -54 02/22/2018 TAXIS 14 02/22/2018 EKGDX 11/06/2012 Normal sinus rhythm Normal ECG "I have personally interpreted this report, either alone or with a trainee." Confirmed by CARINA SMITH ([id number]) on 11/06/2012 3:29:04 PM ANESTHESIA PLAN ASA 3 NPO Status: NPO by protocol ANESTHETIC TECHNIQUE Technique Used: General Induction: intravenous and rapid sequence MONITORS/LINES TO BE USED Standard ANESTHETIC CONSIDERATIONS PONV prophylaxis, Premeds, IV when asleep and Preop antibiotics POSTOP PAIN IV analgesics BLOOD PRODUCTS None INFORMED CONSENT PARQ and risks/benefits of anesthetic plan discussed with patient Additional Consent Issues: Procedures, Alternatives, Risks, and Questions discussed Dental Risk discussed with patient PATIENT'S CODE STATUS IN OR FULL documented in this enco unter Miscellaneous Notes PMC/ANE PreOp Note - [place] CRNA - 08/19/2019 1:52 PM PSTROS: HPI: Prior Anesthetic Problems: No Pulmonary: Within Defined Limits except as noted below no shortness of breath no cough no stridor no wheezing no Recent Respiratory Infection Pt. Has no asthma no COPD Dx of sleep apnea Uses BiPap/CPAP Cardiovascular: Within Defined Limits except as noted below Functional Capacity: Moderate - cyanosis, palpitations and syncope no chest pain no CHF hypertension well controlled n o CAD Sx no valvular problems/murmurs no arrhythmia no Cardiac assist devices no pacemak er/ICD GI/Hepatic: Within Defined Limits except as noted below no GI Bleed GERD Control: well controlled n o liver disease no hepatitis Renal: Within Defined Limits except as noted below no renal failure no electrolyte abnormalities no dialysis Urology/Forensic Psychologist: LMP: Jul 27, 2019, Mirena IUD Within Defined Limits except as noted below Endo: Within Defined Limits except as noted below no Diabetes: Endocrine Other Thyroid:+ hypothy roidism no Hx Corticosteroid Use Neuro/Psych: Within Defined limits except as noted below No Head Conditions No Spine Conditions No Areli romuscular Conditions Psych Disorder bipolar disorder and anxiety pain Current pain score: 9 Musculoskeletal: Within Defined Limits except as noted below arthritis Type: osteoarthritis Manifestations: Additional Comments: bilat knee No Muscular Disorders Heme/Onc: Within Defined Limits except as noted below Pt. has: no active bleeding no bleeding disord er No clotting disorders No hemoglobin disorders no malignancy Infectious Disease: +MRSA 2011 abd wound Within Defined Limits except as noted below MRSA no VRE Skin: Rash under apron integumentary system within defined limits no open wounds no skin conditio ns AutoImmune Disorders: autoimmune disorders within defined limits No autoimmune disorders Physical Exam General: Appearance: Age appropriate and Mild distress LOC: Alert HEENT: Normocephalic/Atraumatic and Normal sclerae/conjunctivae Airway: Dentition: dentition is normal missing teeth Date of last Dental Exam: 41.5 Mallampati: 2 M outh Opening: > 3 cm TM Distance:> 6 cm C-Spine ROM: Normal Neck Anatomy: Thick, obese Jaw Protrusion: Normal (lower incisors go above upper incisors) Pulmonary: Clear to auscultation bilaterally in anterior lung coley. Cardiovascular: Distant heart sounds, regular rate, s1 s2, no murmurs/gallops/rubs. Abdomen: General: Body Habitus: obesity Neuro/Psych: Affect: Normal Cognitive Status: Normal Speech: Normal speech Strength: Normal Muscle Tone: Normal Movement: Normal Gait Station: Normal Cranial Nerves: Normal Sensation: Normal to light touch Comments: No obvious neurologic deficits noted Skin: Scaly raised erythematous rash around mouth and nose. Color: skin color normal Other Implanted Devices: Implanted devices: Other Implanted Devices hardware ankle, right MC/ANE PreOp Note - Alexia Hector RN - 07/29/2019 2:19 PM PSTROS: HPI: Prior Anesthetic Problems: No Pulmonary: Within Defined Limits except as noted below no shortness of breath no cough no stridor no wheezing no Recent Respiratory Infection Pt. Has no asthma no COPD Dx of sleep apnea Uses BiPap/CPAP Cardiovascular: Within Defined Limits except as noted below Functional Capacity: Moderate - cyanosis, palpitations and syncope no chest pain no CHF hypertension well controlled n o CAD Sx no valvular problems/murmurs no arrhythmia no Cardiac assist devices no pacemak er/ICD GI/Hepatic: Within Defined Limits except as noted below no GI Bleed GERD Control: well controlled n o liver disease no hepatitis Renal: Within Defined Limits except as noted below no renal failure no electrolyte abnormalities no dialysis Urology/Forensic Psychologist: LMP: Jul 27, 2019, Mirena IUD Within Defined Limits except as noted below Endo: Within Defined Limits except as noted below no Diabetes: Endocrine Other Thyroid:+ hypothy roidism no Hx Corticosteroid Use Neuro/Psych: Within Defined limits except as noted below No Head Conditions No Spine Conditions No Areli romuscular Conditions Psych Disorder bipolar disorder and anxiety pain Current pain score: 9 Musculoskeletal: Within Defined Limits except as noted below arthritis Type: osteoarthritis Manifestations: Additional Comments: bilat knee No Muscular Disorders Heme/Onc: Within Defined Limits except as noted below Pt. has: no active bleeding no bleeding disord er No clotting disorders No hemoglobin disorders no malignancy Infectious Disease: +MRSA 2010 abd wound Within Defined Limits except as noted below MRSA no VRE Skin: Rash under apron integumentary system within defined limits no open wounds no skin conditio ns AutoImmune Disorders: autoimmune disorders within defined limits No autoimmune disorders 44 y.o. F scheduled for 08/19/2019 Open Ventral Hernia Repair at [facility] by Jorje andersen MD. Past medical hx is significant for morbid obesity (s/p gastric bypass), AMARA (uses and wi l bring CPAP), recent PICC removal due to DVT (on warfarin), hypothyroidism, GERD, HTN, OA (knees), anxiety, bipolar disorder, +MRSA (2011, abd wound), T2DM, HF EKG dated 04/28/2019---see [facility], SR ECHO dated 02/22/2019---see [facility], EF 65-70% Most recent anesthesia event (PICC line removal) dated 06/22/2019--see [facility] Patient interview complete and pertinent updates documented under patient history. Patient received pre-op instructions per AVS and verbalized good understanding. Phone appoi ntment completed as scheduled. Transportation: medical transportation documented in this e ncounter Plan of Treatment +--------+ + + + + | Date | Type | Specialty | Care Team | Description | +--------+ + + + + | 04/04/ | Telephone-S | Surgery | Orquidea Cristobal, | | 2019 | cheduled | | RADIO ANNOUNCER [address] | | | | | | [place], [place] | | | | | | [address] | | | | | | [phone] | | | | | | | [...] | | | ATTEMPT 1 Blade Type: Maroi Blade #: 3 Laryngoscopic View: | | [...] 4:45 | | | | | Starting Thu08/19/19 at 1435, | | PM PST | [...] 5:32 | | | | | Starting Thu08/19/19 at 1358, | anesthes | PM PST [...]
--- OUTSIDE RECORDS SUMMARY | ~2020-03-26 | XMS | Encounter Summary ---
Demographics + + + | Address | [address] | | | [place] [address] | + + + | Home Phone [...] + | Katalina Padilla | ECON | [address] | | | | | [place], [place] | | | | | [address] | | + + + + + | Ellie Vang | ECON | Unknown | | + + + + + Care Team Providers + +------+ + | Care Rotary Saw Operator Name | Role | Phone [...] | | | | | | | [address] | | | | | | [address] | | | | | | | Physicians | | | | | | | Pavilion, [address]nd | | | | | | | Floor | | | | | | | [place], [place] | | | | | | | [address] | | | | | | | Phone: | | | | | | | [phone] | | | | | | | Fax: | | | | | | | [phone] | +--------+--------+ + + + + Encounter [...] | | | [facility] [address] | or gangrene (Primary | | | | [address] | [place], [place] | Dx) | | | | Physicians [place], | [address] | | | | | 2nd Floor | [phone] | | | | | [facility] [place] | | | | | | [address] | | | | | | [phone] | | | +--------+---------+ + + + [...] Rocha MD,MPH - 11/05/2015 2:09 PM PDT [facility] Department of Surgery EGS/TRAUMA Surgery Clinic Note [...] 500 mg by mouth once daily. CALCIUM CRB&IGU-E4-FTP95-GENIS ORAL Take 1 tablet by mouth two [...] were answered. Christian Rocha MD MPH FACS [facility] narrative writer Trauma, Critical Care & Acute Care Surgery [facility] [phone] documented in thi s encounter Plan of Treatment +--------+ + + + + | Date | Type | Specialty | Care Team | Description | +--------+ + + + + | 04/04/ | Telephone-S | Surgery | Orquidea Cristobal, | | | 2019 | chesteve | | LEASE OUT MAN [address] | | | | | | [place], [place] | | | | | | [address] | | | | | | [phone] | | | | | | | | +--------+ + + + + documented as of this encounter Visit Diagnoses + + | Diagnosis | + + | Ventral hernia without obstruction or gangrene - Primary Ventral hernia, unspecified, | | without mention of obstruction or gangrene | + + documented in this encounter"
--- OUTSIDE RECORDS SUMMARY | ~2020-03-26 | XMS | Encounter Summary ---
Demographics + + + | Address | [address] | | | [place] [address] | + + + | Home Phone [...] [place], [place] | | | | | [address] | | + + + + + | Ellie Vang | ECON | Unknown | | + + + + + Care Team Providers + +------+ + | Care Director Of Blood Name | Role | Phone | + [...] | | 2 diabetes | JEAN, | [place], [place] | | | | | mellitus | [place] [address] | [address] | | | | | without | Phone: | Phone: | | | | | complication | [phone] | [phone] | | | | | (HCC) | Fax: | Fax: | | | | | Procedures | [phone] | [phone] | | | | | DC EST [...] | 2018 | Visit | Preventive at [facility] | MD [address] | mellitus without | | | | [address] | [place], [place] | complication, with | | | | [facility] | [address] | long-term current | | | | and Healing, | [phone] | use of insulin (HCC) | | | | [address] | | (Primary Dx); | | | | [place], [place] | | Morbid obesity with | | | | [address] | | BMI of 70 and over, | | | | [phone] | | adult (HCC) | +--------+---------+ + [...] Note: Cannot tolerate CPAP Severe Morbid obesity ([facility]), BMI 88 11/12/2012 Priority: 4 [...] with BMI of 70 and over, adult ([facility]) 02/02/2017 Chronic diastolic heart failure [...] 1 tablet by mouth once daily CALCIUM CRB&OFC-T8-PBM48-GENIS ORAL Take 2 tablets by mouth two [...] jeart failure is manag ed by her social work msw and she was seen by the bariatric [...] is currently being managed well by her Kraft Digester Operator with diuretics and main tenance of her [...] management of her heart failure by her Kraft Digester Operator 3) Check A1c, lipids 4) Await bariatric [...] | | 2020 | sherrill | | FARM FACILITY MANAGER [address] | | | | | | [place], [place] | | | | | | [address] | | | | | | [phone] | | | | | | | [...] + + + + + | [facility] | [address] | [place], [place] | | | SERVICES, LIPID | [address] | [address] | | + + + + + [...] | [facility] | | considered for monitoring tank terminal gauger glycemic control in patients with: | LABORATORY [...] + + + | [facility] | [address] | [place] [address] | | | SERVICES, SPECIAL | CLARENCE [...] with BMI of 70 and over, adult ([facility]) | + + documented in this encounter
--- OUTSIDE RECORDS SUMMARY | ~2020-03-26 | XMS | Encounter Summary ---
Demographics + + + | Address | [address] | | | [place] [address] | + + + | Home Phone [...] [place], [place] | | | | | [address] | | + + + + + | Ellie Vang | ECON | Unknown | | + + + + + Care Team Providers + +------+ + | Care Special Projects Coordinator Name | Role | Phone | + +------+ + PCP | Unavailable | + +------+ + Encounter Details +--------+ + + + + | Date | Type | Department | Care Team | Description | +--------+ + + + + | 05/13/ | Results | | Other, Faculty | | | 1992 | Only | | [phone] | | +--------+ + + + + [...] | | 2019 | sherrill | | URBAN RENEWAL MANAGER [address] | | | | | | [place], [place] | | | | | | [address] | | | | | | [phone] | | | | | | | [...] | | | | | | | [id number] SCAN OF | | | | | [...] | | | | | | | [id number] SCAN OF | | | | | [...]
--- OUTSIDE RECORDS SUMMARY | ~2020-03-26 | XMS | Encounter Summary ---
Demographics + + + | Address | [address] | | | [place] [address] | + + + | Home Phone [...] [place], [place] | | | | | [address] | | + + + + + | Ellie Vang | ECON | Unknown | | + + + + + Care Team Providers + +------+ + | Care Pricer Name | Role | Phone | + +------+ + | Kenyatta Cardenas MD | PCP | | + +------+ + Encounter Details +--------+ + + + + | Date | Type | Department | Care Team | Description | +--------+ + + + + | 06/06/ | Telephone | Digestive Health | Chilo | | | 2019 | | [place] [address] [address] | MD [address] | | | [address] [facility] | [address] | | | | | for Health and | [place], [place] | | | | | [facility] [address] | [address] | | | | | [place], [place] | [phone] | | | | | [address] | | | | | | [phone] | | | +--------+ + + + [...] of her current situation. Please advise, October [facility] phone RN" Discussed with Dr. Woo, [...] | | 2019 | sherrill | | HEAD CASHIER [address] | | | | | | [place], [place] | | | | | | [address] | | | | | | [phone] | | | | | | | | +--------+ + + + + documented as of this encounter Visit Diagnoses Not on filedocumented in this encounter
--- OUTSIDE RECORDS SUMMARY | ~2020-03-26 | XMS | Encounter Summary ---
Demographics + + + | Address | [address] | | | [place] [address] | + + + | Home Phone [...] Providers + +------+ + | Care Carpet Weaver Name | Role | Phone | + +------+ + PCP | Unavailable | + +------+ + Encounter Details +--------+ + + + + | Date | Type | Department | Care Team | Description | +--------+ + + + + | 11/20/ | Orders Only | [facility] | Conversion | | | 2016 | | NEPHROLOGY [place] | Transaction, | | | | | [address] | Provider Unknown | | | | | [address] [place], [place] | | | | | | [address] | (Fax) | | | | | [phone] | | | +--------+ + + + [...] | | | | | [place] [address] | | | | | | [phone] | | | | | | | | +--------+ + + + + | 04/18/ | Procedure | Neurology | Camille De La Paz, | | | 2019 | visit | | MD [address] | | | | | | [address] | | | | | | [place] [address] | | | | | | [phone] | | | | | | | [...]
--- OUTSIDE RECORDS SUMMARY | ~2020-03-26 | XMS | Encounter Summary ---
Demographics + + + | Address | [address] | | | [place] [address] | + + + | Home Phone [...] [place], [place] | | | | | [address] | | + + + + + [...] | | 2017 | | Preventive at [facility] | MD [address] | Request (Farxiga 5 | | | | [address] | [place], [place] | mg) | | | | [facility] | [address] | | | | | and [place], | [phone] | | | | | [facility] [address] | | | | | | [place], [place] | | | | | | [address] | | | | | | [phone] | | | +--------+ + + + [...] Prior Auth for Farxiga medication on Cover [employer]. Office note attached. Will await at least 5 business days. Routing to SOFI to call and check on status. ele phone Encounter - Rhona Mccullough MA - 12/01/2016 11:33 AM PDTI received a covermymeds request from the patients pharmacy [facility] for FARXIGA. I placed the form in the folder for the RN to complete the PA on Moglue with the de la cruz: [id number] signed by Rhona andersen MA at 12/01/2016 11:35 AM PDTdocumented in this encounter Plan of Treatment +--------+ + + + + | Date | Type | Specialty | Care Team | Description | +--------+ + + + + | 04/04/ | Telephone-S | Surgery | Orquidea Cristobal, | | | 2019 | cheduled | | SUPERVISOR [facility]AT[facility] [address] | | | | | | [place], [place] | | | | | | [address] | | | | | | [phone] | | | | | | | | +--------+ + + + + documented as of this encounter Visit Diagnoses Not on filedocumented in this encounter"
--- OUTSIDE RECORDS SUMMARY | ~2020-03-26 | XMS | Encounter Summary ---
Demographics + + + | Address | [address] | | | [place] [address] | + + + | Home Phone [...] [place], [place] | | | | | [address] | | + + + + + | Ellie Vang | ECON | Unknown | | + + + + + Care Team Providers + +------+ + | Care Senior Drupal Developer Name | Role | Phone | + +------+ + | Fadi Goodrich DO | PCP | | + +------+ + Encounter Details +--------+ + + + + | Date | Type | Department | Care Team | Description | +--------+ + + + + | 11/06/ | Abstract | Digestive Health | Shereen Georges, | | | 2014 | | Center at [facility] [address] | ACNP [address] | | | | [address] | [address] [place], [place] | | | | | for Health and | [address] | | | | | [facility] [address] | | | | | | [place], [place] | | | | | | [address] | | | | | | | [...] | | 2020 | cheduled | | OFFICE ASSISTANT RECEPTIONIST [address] | | | | | | [place], [place] | | | | | | [address] | | | | | | [phone] | | | | | | | | +--------+ + + + + documented as of this encounter Visit Diagnoses Not on filedocumented in this encounter"
--- OUTSIDE RECORDS SUMMARY | ~2020-03-26 | XMS | Encounter Summary ---
Demographics + + + | Address | [address] | | | [place] [address] | + + + | Home Phone [...] [place], [place] | | | | | [address] | | + + + + + | Ellie Vang | ECON | Unknown | | + + + + + Care Team Providers + +------+ + | Care Motorized Squad Sergeant Name | Role | Phone | + [...] | | | | | | [facility] [place], | | | | | | [place] [address] | | | | | | [phone] | | | +--------+ + + + [...] | | 2020 | sherrill | | CARDIOLOGY FELLOW [address] | | | | | | [place] | | | | | | [address] | | | | | | [phone] | | | | | | | | +--------+ + + + + documented as of this encounter Visit Diagnoses Not on filedocumented in this encounter"
--- OUTSIDE RECORDS SUMMARY | ~2020-03-26 | XMS | Encounter Summary ---
Demographics + + + | Address | [address] | | | [place] [address] | + + + | Home Phone [...] [place], [place] | | | | | [address] | | + + + + + | Ellie Vang | ECON | Unknown | | + + + + + Care Team Providers + +------+ + | Care Prepared [employer] Associate Name | Role | Phone | [...] | Pain | Diagnoses | Destini | [facility] | | | | Management | Morbid | KAIN Bruner | [facility] [address] | | | | | obesity with | [address] | | | | | BMI of [address] | [facility] | | | | | and over, | [place], [place] | Health and | | | | | adult (HCC) | [address] | Healing, | | | | | Procedures | Phone: | Building | | | | | CONSULT TO | [phone] | [address] | | | | | PAIN | Fax: | [place], [place] | | | | | MANAGEMENT | [phone] | [address] | | | | | [place] | | Phone: | | | | | PSYCHIATRIC | | [phone] | | | | | DIAGNOSTIC | | Fax: | | | | | EVAL, NO MED | | [phone] | | | | | [facility] [place] | | | | | | | PSYCH TSTNG | | | | | | | PSYCH/PHYS | | | +--------+---------+ + + + + Encounter Details +--------+---------+ + + + | Date | Type | Department | Care Team | Description | +--------+---------+ + + + | 10/02/ | Office | [facility] | Leslie Mistry, | Morbid obesity | | 2018 | Visit | [address] | PhD [address] | ([facility]); Bipolar | | | | [facility] | [facility] | affective disorder, | | | | and Healing, | [place], [place] | remission status | | | | | [address] | unspecified ([facility]); | | | | Floor [place], [place] | [phone] | BMI 60.0-69.9, adult | | | | [address] | | ([facility]); Anxiety | | | | [phone] | | | +--------+---------+ + + + [...] Name: Elzbieta Cristina : 1975 Medical Record: [id number] Age: 42 y.o. Weight today, per patient report: 305 lbs Weight on 09/11/17: 389, BMI 73.54 Identifying Information: Elzbieta Cristina is a 42 y.o. female who lives with her mother in [place], [place]. She was referred for psychological evaluation [...] of cereal with skim milk and a taiwanese yogurt L: white bread and cheese and [...] time I spent was approximately 60 minutes navm-fo-lqne with the patient and approxima tely 2 hours of clw-figv-bc-face testing, interpreting and synthesizing results. Leslie Mistry, PhD Clinical Psychologist [facility] [address] [place] [address] Health and [facility], [address] [place] [address] [id number] signed by Leslie Mistry, PhD at 10/08/2017 12:26 PM PDTdocume nted in this encounter Plan of Treatment +--------+ + + + + | Date | Type | Specialty | Care Team | Description | +--------+ + + + + | 04/04/ | Telephone-S | Surgery | [facility], | | | 2019 | sherrill | | HOOD FITTER [address] | | | | | | [place], [place] | | | | | | [address] | | | | | | [phone] | | | | | | | [...]
--- OUTSIDE RECORDS SUMMARY | ~2020-03-26 | XMS | Encounter Summary ---
Demographics + + + | Address | [address] | | | [place] [address] | + + + | Home Phone [...] + | Katalina Padilla | ECON | [address] | | | | | [place], [place] | | | | | [address] | | + + + + + | Ellie Vang | ECON | Unknown | | + + + + + Care Team Providers + +------+ + | Care Corduroy Brusher Operator Name | Role | Phone | [...] | 6A Intra Op 3181 | Andie Chun MD | repair incarcerated | | 2012 | | PRINCE [facility] | [address] [facility] | ventral hernia; | | | | Rd [facility] | [facility] [address] | possible bowel | | | | Hospital Admitting | [place], [place] | resection; | | | | Desk Located on the | [address] | | | | | 9th floor | [phone] | | | | | [place], [place] | | | | | | [address] | | | +--------+---------+ + + + [...] yuriy tral hernia. She was transferred from [facility] for surgical evaluation of possible incarcer ated [...] yuriy tral hernia. She was transferred from [facility] for surgical evaluation of possible incarcer ated [...] is very important that you walk at [employer] three times a day. These can [...] keeping you from eating and drinking, Call [phone]. It is important to stay hydrated! If [...] taking narcotic that contain Tylenol (acetaminophen) Example: Sed[place], Lortab, Vicodin, hydrocodone/APAP, Percocet, Tylenol #3 PAIN MEDICATIONS are ONLY REFILLED during CLINIC APPOINTMENTS. Please call [phone] to schedule an appointment. Your Follow-Up Plan Follow up with ROBIN MEJIA in 2 weeks. Contact information: [address] [facility] [address] Vitals on discharge: Ht 154.9 cm (5' [...] rom the original. [facility] DEPARTMENT OF SURGERY EMERGENCY GENERAL SURGERY [...] clinic [place]. [place] [phone] pager number [facility] [phone] [facility] [phone] Aminta Goodwin Md - 11/11/2012 7:40 AM PDT [facility] DEPARTMENT OF SURGERY EMERGENCY GENERAL SURGERY Division of Trauma and Critical Care Attending Physician: Andie Chun MD Progress Note Note Date: 11/11/2012 Admission Date: 11/06/2012 DYLAN ROMERO, [id number] Hospital Day #5 INTERVAL EVENTS none acute [...] mg, Rectal, DAILY PRN, Aminta Wilson MD qqieppcuyq-osaijczsqsfnm-nreebams (aka FIORICET) 50-325-40 mg 1 Tab, 1 [...] Wilson MD PGY 1 Aminta Goodwin Md 11/10/2012 10:18 AM PDT EGS PROGRESS NOTE: Attending Physician: Andie Chun MD 11/10/2012 SUBJECTIVE: Reports she is sore, ambulating around room and in the jamison, no n/v, passing flatus, MEDICATIONS: Current facility-administered medications:ALPRAZolam (aka XANAX) tablet 1 mg, 1 mg, Oral, T ID, Jayne Ponce MD, 1 mg at 11/10/12801 zxrothvlfn-ylhjmmzsqcvok-yshazdty (aka FIORICET) 50-325-40 mg 1 Tab, 1 [...] solis MD, Last Rate: 200 mL/hr at 11/10/12 0803, 20 mg at 11/10/12 0803 FLUoxetine [...] in preservative free NaCl 0.9% 50 mL RETAIL AREA MANAGER infusion, , Intravenous, KIESHA NUOUS, Aracely Ferronato, DO, 0.1 mg at 11/10/12 0748 insulin lispro (aka HUMALOG) injection, , Subcutaneous, MEALS and HS, Kaleb Wing, KALYAN ketorolac (aka TORADOL) injection 30 mg, 30 mg, Intravenous, Q6H PRN, Dione Nickerson MD, 30 mg at 11/08/12 1024 lactated ringers IV, 125 mL/hr, Intravenous, CONTINUOUS, Aracely Ferronato, DO, Last Rate: 1 25 mL/hr at [...] diet -add bowel regimen Acute pain -HM RETAIL AREA MANAGER, tylenol -convert to oral pain medication once [...] Fluids: LR 125ml/hr Feeding: NPO Analgesia: Dilaudid RETAIL AREA MANAGER Sedation: not indicated Thromboprophylaxis: enoxaparin Head of bed: > 30 Ulcer prophylaxis: pepcid Glycemic control: adequate Activity/PT/OT: Ongoing Yogurt: ABX on Probiotics:yes AMINTA WILSON MD General Surgery, R1 Aminta Goodwin Md - 11/09/2012 9:17 AM PDT EGS PROGRESS NOTE: Attending Physician: Andei Chun MD 11/09/2012 SUBJECTIVE: Reports she is sore but her pain is well controlled, she is hopeful she can eat soon, repor ts passing gas but no BM. Doing IS and ambulating MEDICATIONS: Current facility-administered medications:acetaminophen (aka TYLENOL) tablet 650 mg, 650 mg , Oral, Q6H, Jayne Ponce MD, 650 mg at 11/09/12 6197 ALPRAZolam (aka XANAX) tablet 1 mg, 1 mg, Oral, TID, Jayne Ponce MD, 1 mg at 11/09/12 0855 btzvlkmvnb-qtjwnsxzdpvyj-cxmahgmk (aka FIORICET) 50-325-40 mg 1 Tab, 1 [...] in preservative free NaCl 0.9% 50 mL RETAIL AREA MANAGER infusion, , Intravenous, KIESHA NUOUS, Aracely Flores [...] 40 mEq, 40 mEq, Intravenous, BID, Aminta iWlson MD, 40 mEq at 0900 promethazine (aka [...] drainage <30ml for 24hrs Acute pain -HM RETAIL AREA MANAGER, tylenol Diabetes: -insulin gtt not started due [...] Fluids: LR 125ml/hr Feeding: NPO Analgesia: Dilaudid RETAIL AREA MANAGER Sedation: not indicated Thromboprophylaxis: enoxaparin Head of bed: > 30 Ulcer prophylaxis: pepcid Glycemic control: adequate Activity/PT/OT: Ongoing Yogurt: ABX on Probiotics:yes AMINTA WILSON MD General Surgery, R1 Judenaeem Kaleb S, N P - 11/08/2012 8:49 AM PDT [facility] DEPARTMENT OF SURGERY EMERGENCY GENERAL SURGERY Division of Trauma and Critical Care Attending Physician: Andie Chun MD Progress Note Note Date: 11/08/2012 Admission Date: 11/06/2012 DYLAN ROMERO, [id number] Hospital Day #2 INTERVAL EVENTS NO SUBJECTIVE Pain well controlled; has headache attributed to dilaudid RETAIL AREA MANAGER Tylenol did not help. Flatus: YES Tolerating [...] and coughing PRN. -NG clamping trials today. -YAO kilgore Acute pain -HM RETAIL AREA MANAGER, tylenol Diabetes: -insulin gtt not started due [...] Fluids: LR 125ml/hr Feeding: NPO Analgesia: Dilaudid RETAIL AREA MANAGER Sedation: not indicated Thromboprophylaxis: enoxaparin Head of bed: > 30 Ulcer prophylaxis: pepcid Glycemic control: adequate Activity/PT/OT: Ongoing Yogurt: ABX on Probiotics: No KALEB WING NP [facility] [place] [address] Kelvin Lobato MD - 11/07/2012 9:51 PM [...] -- 27 25 26 BUN -- 13 15 13 CR -- 0.62 0.67 0.66 GLU [...] 7.33* PCO2 49* PO2 113* HCO3 25 [id number] 26 [id number] 98.3* S0YJGRYJW -- FIO2 60 ABGEXCESS -0.9 Assessment, Medical Decision Making and Plan 1. Incarcerated hernia, now s/p repair and panniculectomy -Binder, pain control, minimize nausea and coughing PRN. -NG clamping trials today. 2. Acute pain -HM RETAIL AREA MANAGER, tylenol 3. Diabetes: -insulin gtt 4. Morbid [...] Dione Nickerson MD R-2, General Surgery Pager: [phone] [facility] [place] Department of Surgery Trauma ICU Team Pager (24hrs/day): [phone] I was present with the resident during the history and exam. I discussed the case with the resident and agree with the findings and plan as documented in the resident s note. KELVIN SPENCE MD [facility] [address] [place] [address] [id number] uddbarb, Onur Marcelino MD - 11/07/2012 2:37 AM PDT EMERGENCY [...] tablet 325-650 mg 325-650 mg Oral Q4H PRLoretta Liu MD Or acetaminophen (aka TYLENOL) oral suspension 325-650 mg 325-650 mg Feeding Tube Q4H PRN Danny Liu MD 650 mg at 11/06/12 2353 Or acetaminophen (aka TYLENOL) suppository 325-650 mg 325-650 mg Rectal Q4H PRN Danny Yu MD albuterol 0.083% (aka PROVENTIL,VENTOLIN) 2.5 mg /3 mL (0.083 %) nebulizer solution 2.5 mg 2.5 mg Inhalation Q4H PRLoretta Liu MD artificial tears (hypromellose) (aka NATURES TEARS) 0.4 % ophthalmic drops [address] Both Eyes PRLoretta Liu MD chlorhexidine (aka PERIDEX) mouthwash 15 [...] in preservative free NaCl 0.9% 50 mL RETAIL AREA MANAGER infusion Intravenous CON TINUOUS Aracely Ferronato, DO 0.2 mg at 11/06/12 2200 insulin [...] naloxone (aka NARCAN) injection Intravenous PRN Aracely Ferronato, DO nystatin (aka MYCOSTATIN) powder Topical BID [...] Onur Allen MD 150 mg at 11/06/12 4363 Assessment & Plan: Dylan Romero is a 37 y.o. Morbidly obese female who presented with an incarcerated vent ral hernia who is now POD#1 s/p primary repair. 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 early years teacher and prn tylenol, continue prozac and zyprexa [...] F: probable remain NPO today A: dilaudid early years teacher, prn tylenol S: prn benzos as she is at home T: will start prophylactic lovenox today H: HOB >30 degrees U: pepcid G: insulin gtt ONUR ALLEN MD, PGY3 [facility] [id number] [place] [address] Onelia Shrestha MD - 11/06/2012 8:41 AM PDT [facility] DEPARTMENT OF SURGERY Division of Trauma and Critical Care Emergency General Surgery / Acute Care Surgery Attending Physician: Andie Chun MD Note Date: 11/06/2012 Admission Date: 11/06/2012 DYLAN ROMERO, [id number] Hospital Day #0 OVERNIGHT EVENTS: anxious SUBJECTIVE: [...] wwp LABS: reviewed and are available in [facility] (if new data) IMAGING: VASCULAR: [...] and needs fluid resuscitation. ANDIE CHUN MD [facility] [address] [place] [address] emarcus Christopher MD - 0 11/05/2012 10:24 [...] She presents today as a transfer from [facility] with concern for possible incarcerated marguerite ia. [...] She presents today as a transfer from [facility] with concern for possible incarcerated marguerite ia. [...] inferior abdo stephany ventral hernia transferred to [facility] over concern for incarcerated hernia. The hernia w as non reducible, but was limited by pain on exam. Her hernia does appear incarcerated. 1. Admit to Surgery 2. NPO, NGT tube 3. MIVF with LR at 75ml/hr 4. Cbc, cmp, inr 5. Restart home medications 6. Incarcerated hernia -CT scan vs. OR today Demarcus Christopher MD, PGY1 [facility] [address] [place] [address] documented in this enc ounter Procedure Notes Danny Liu MD - 11/07/2012 9:07 AM PDTAssociated Order(s): REPAIR, VENTRAL HERNIA, I NCARCERATED, INITIALProcedure(s): REPAIR, VENTRAL HERNIA, INCARCERATED, INITIALPre-Procedure Diagnose(s): Incarcerated ventral herniaPost-Procedure Diagnose(s): Incarcerated ventral he rniaOperative Report Identifying Data: Dylan Romero [id number] Author: Danny Liu MD Date: 11/06/2012 Attending Surgeon and Service: Attending: Hernandez Chun MD Service: Emergency General Surgery Date of Procedure: 11/06/2012 Preoperative Diagnosis: Incarcerated Ventral Hernia Postoperative Diagnosis: Same Procedure Performed: 1) Exploratory laparotomy 2) Excision of excess skin and chronic wound infection 3) Primary ventral hernia repair 4) 19Fr Round Vanessa Drain 5) Staple skin closure Primary Surgeon: Hernandez Chun MD Bottom Ironer Surgeons: MD Danny Kovacs MD Type of [...] for the entire procedure. DANNY LIU MD [id number] [place] [address] Danny Fowler MD - 11/06/2012 2:07 PM PDTAssociated Order(s): [...] excision of excess skin and chronic wound, [facility] ventral hernia repair, 19Fr Round [...] suture and skin contreras. DANNY LIU MD [facility] [id number] [place] [address] documented in this encounter Consult Notes Raisa Landaverde MD - 11/06/2012 3:48 PM PDTI was present and rounded with the PATROL COMMUNITY SERVICE OFFICER today. I interviewed and examined the patient. I reviewed the history, as documented today. I agr ee with the PATROL COMMUNITY SERVICE OFFICER's assessment and plan. No evidence of bleeding. Will follow. Will wean to pre ssure support as tolerated. May need bronchoscopy. Critcal care time: 35 minutes RAISA LANDAVERDE MD [facility] [address] [place] [address] guyen Canseco PA-C - 11/06/2012 3:48 PM PDT SURGICAL [...] by the attending physician. NGUYEN CANSECO PA-C [facility] [id number] [place] [address] documented in this en counter Miscellaneous Notes Scan - Other, Faculty - 11/18/2012 10:14 AM PDTElectronically signed by Faculty Other at 10:14 AM PDTScan - Other, Faculty - 11/18/2012 10:14 AM PDT can - Other, Faculty - 11/18/2012 10:14 AM PDTElec tronically signed by Faculty Other at 11/18/2012 10:14 AM PDTScan - Other, Faculty - 013 10:14 AM PDT can - Tito r Faculty - 11/18/2012 10:14 AM PDT 10: [...] prescriptions with family members to home . ita Galicia - 11/12/2012 2:06 PM PDTProblem: Pain, Acute [...] Patient Stability:Moderately Stable lan of Kevon Rendon Lafaro joanne - 11/12/2012 2:06 PM PDTProblem: Pain, [...] as needed. Request pt teachback x2. lan Luz Maria Salcedo RN - 11/12/2012 11:34 AM PDTProblem: Case Management Goals Goal: Discharge Needs Met Outcome: Goal met Date Met: 11/12/12 Pt to discharge today per the team. Sister will be driving pt to her home in [place]. No needs from at this time. Luz [...] and mo bility progress. 5. Assess skin J4nrugq and PRN. Educate on prevention of skin breakdown. Elevate heels and other pressure points. Ask MD to order nystatin powder for application underneath pannus. 6. Assess n/v S5gofvu and PRN. Treat with PRN and/or scheduled [...] and mo bility progress. 5. Assess skin Y9ohumd and PRN. Educate on prevention of skin breakdown. Elevate heels and other pressure points. Ask MD to order nystatin powder for application underneath pannus. 6. Assess n/v I9xouur and PRN. Treat with PRN and/or scheduled anti-emetics. Educate on alt ernative techniques for nausea management (i.e. Side lying, distraction, deep breathing). andoff - Claudia Braga RN - 11/12/2012 6:26 AM PDTPrimary focus of stay: 37 female admit from [facility] w/ pos sible incarcerated hernia, N/V, abdominal [...] will be discharged Discharge plan: probably today vVeronique Martinez - 11/11/2012 6:41 PM PDTProblem: General Plan [...] Patient Stability:Moderately Unstable lan of Care - Kassi Veronique - 2012 10:23 AM PDTProblem: General Plan [...] for purulent or malodorous drainage andoff - KassiVeronique - 3 10:19 AM PDTPrimary focus of stay: incarcerated bowel and ileus, hernia repair 11/06 PmHx: HTN, DM, bipolar, depression, anxiety, migraines Pertinent physical findings: Vitals: vitals stable. Desat to 89 % RA, 1 L O2 provided while sleeping, probably d/t too m uch sedative medications at night.. was informed last night, now on RA [...] 1-2 day when having BMs valuation - DayBebo RN - 6:27 AM PDTProblem: Pain Chronic (Adult, Obstetrics) Goal: Identify Signs and Symptoms and Related Risk Factors Goals: 1. Patient's pain will adequately controlled at or below a 5/10 this shift and transitioni ng off RETAIL AREA MANAGER 2. Patient will demonstrate adequate oxygenation and perfusion d/b spo2>90% on RA this kristin ft. Interventions: 1. Patient will be encouraged to ask for oral pain med and use RETAIL AREA MANAGER sparingly. 2. Encourage patient to roll on [...] much pain medication patient is using on RETAIL AREA MANAGER 6. Administer migraine medication PRN for headache 7. Administer 1 L O2 when patient is sleeping 8. Evaluate patient's fluid balance and discuss with MD to DC her fluid since she is now t aking decent amount of liquid intake. Interventions that worked/didn't work:Patioent seems to be very comfortable but when woken up or when moving, she co pain 8/10. RETAIL AREA MANAGER was not used since 99. MD did not want to DC LR yet, O2 sat mid 90s with 1L O2 on while sleeping, denies headache, O2 probably helps My recommendations forward:Continue with above interventions Patient Stability:Moderately Stable andoff - DayBebo RN - 0 11/11/2012 2:17 AM PDTPrimary [...] -drsg changed 11/08 , LR @ 125, RETAIL AREA MANAGER 0.1 q 8. Oral pain med given q 3 hour s 10 to 15 mg. Please try to wean off RETAIL AREA MANAGER Diet/GI:, CL, passing gas, BM meds started(11/10) CBGs: q6 : voids in BR, UTI Mobility: SBA, hats in BR. Only ambulated to BR tonight Wounds/Drains: transverse abdominal incision intact with contreras, potato seed cutter, DIAMOND drain x 1, needs frequent emptying, skin breakdown under pannus,wash, clean dry apply nystatin powder Critical labs: Critical meds: Antibiotics started for UTI Orders to follow up on: IV Mg replacement Last pain assessment/reassessment: abd pain 5-7/10, total 15mg oxygiven in 1.5 hours, RETAIL AREA MANAGER used minimally, turned off at around 4 am. Encouraged not to use. 0600 sleeping soundly Psych/social issues: can be anxious at times Last visit (i.e. Falls/Activity/Comfort/Environment/Toileting/Skin): 0600 resting comfortab ly Anticipated or pending procedures: possible future OR? Discharge plan: TBD- DC 1-2 day when having BMs lan of Bebo Samuel R N - 11/11/2012 2:09 AM PDTProblem: Pain Chronic (Adult, Obstetrics) Goal: Identify Signs and Symptoms and Related Risk Factors Goals: 1. Patient's pain will adequately controlled at or below a 5/10 this shift and transitioni ng off RETAIL AREA MANAGER 2. Patient will demonstrate adequate oxygenation and perfusion d/b spo2>90% on RA this kristin ft. Interventions: 1. Patient will be encouraged to ask for oral pain med and use RETAIL AREA MANAGER sparingly. 2. Encourage patient to roll on [...] much pain medication patient is using on RETAIL AREA MANAGER 6. Administer migraine medication PRN for headache 7. Administer 1 L O2 when patient is sleeping 8. Evaluate patient's fluid balance and discuss with MD to DC her fluid since she is now t aking decent amount of liquid intake. ERHandoff Veronique Michaud - 10/25 6:30 PM PDTPrimary [...] -drsg changed 11/08 , LR @ 125, RETAIL AREA MANAGER 0.2 q 8. Oral pain med given at 5pm Diet/GI:, CL, passing gas, BM meds started(11/10) CBGs: q6 : voids in BR, UTI Mobility: SBA, hats in BR. Only ambulated to BR tonight Wounds/Drains: transverse abdominal incision intact with contreras, potato seed cutter, DIAMOND drain x 1, needs frequent emptying, [...] control Prevent infection Interventions:assess the effectiveness of RETAIL AREA MANAGER at least Q 4hrs, encourage IS and ambulation, monitor vital signs, notify MD for any uncontrolled pain beyond prn medications, monitor wo und. Interventions that worked/didn't work:in process Of switching early years teacher to oral pain medication, VSS, no acute abnormal change in wound. VSS this shift My recommendations forward:as above Patient Stability:Moderately Unstable lan giuliana Lund - Saqib Barry - 0 11/10/2012 10:34 AM PDTProblem: Case Management Goals Goal: Discharge Needs Met Outcome: Goal not met Await BM prior to DC. Per report, pt is passing gas; hopeful for DC in 1-2 days. Barry Cerrato RN, BSN Stores Assistant [place] [address] [email or web address] eronique Castro - 11/10/2012 9:00 AM PDTProblem: General Plan of Care (Adult) Intervention: NPEOC Acute Goals:pain under control Prevent infection Interventions:assess the effectiveness of RETAIL AREA MANAGER at least Q 4hrs, encourage IS and ambulation, monitor vital signs, notify MD for any uncontrolled pain beyond prn medications, monitor wo und. valuation - DayBebo RN - 0 11/10/2012 6:45 AM PDTProblem: Pain Chronic (Adult, Obstetrics) Goal: Identify Signs and Symptoms and Related Risk Factors Goals: 1. Patient's pain will adequately controlled at or below a 5/10 this shift. 2. Patient will demonstrate adequate oxygenation and perfusion d/b spo2>90% on RA this kristin ft. Interventions: 1. Patient will be encouraged/instructed on proper use of RETAIL AREA MANAGER and to inform RN if pain not [...] much pain medication patient is using on RETAIL AREA MANAGER 6. Administer migraine medication PRN for headache Interventions that worked/didn't work:Patient was drowsy after her night medication, barely used her RETAIL AREA MANAGER. Turned rate down d/t desat. May turn [...] -drsg changed 11/08 , LR @ 125, RETAIL AREA MANAGER 0.3 q 8. RETAIL AREA MANAGER turned down to 0.1 q 8 minutes at 0400 Diet/GI: NPO exc meds, ice chips ok, passing gas CBGs: q6 : voids in BR, UTI Mobility: SBA, hats in BR. Only ambulated to BR tonight Wounds/Drains: transverse abdominal incision intact with contreras, potato seed cutter, DIAMOND drain x 1, needs frequent emptying, skin breakdown under pannus,wash, clean dry apply nystatin powder,pillow case x2 Critical labs: Critical meds: Antibiotics started for UTI Orders to follow up on: IV Mg replacement Last pain assessment/reassessment: 444, pt drowsy but RETAIL AREA MANAGER was used minimally since 2329. I believe her Bipolar med and Trazadone made her drowsy. Awakable but went back to sleep ri ght away. Refused toileting when offered twice since 330. Absent of pain. pain well contro lled with RETAIL AREA MANAGER and prn meds Toradol, for headache, Floricet [...] will be encouraged/instructed on proper use of RETAIL AREA MANAGER and to inform RN if pain not [...] much pain medication patient is using on RETAIL AREA MANAGER 6. Administer migraine medication PRN for headache [...] was just up to the bathroom." Pain: 7/10 in abdomen, RN aware. addressed with RETAIL AREA MANAGER. Objective: Education: patient able to recall all [...] requiring the skills of a therapist, manuela y to improve strength, AROM and balance for improved bed mobility, transfers and gait. Please see care plan for goals. Recommendations: Anticipate discharge home with assist of mother/sister as needed. No durab le medical equipment needs anticipated. Activity Plan: Patient to ambulate in room TID with nursing assist as needed; up to chair T ID Clau Quintero DPT Pager [phone] valuation - Brendon Mcgowan RN - 11/09/2012 1:05 PM PDTProblem: Pain Chronic (Adult, Obstetrics) Goal: Identify Signs and Symptoms and Related Risk Factors Goals: 1. Patient's pain will adequately controlled at or below a 5/10 this shift. 2. Patient will demonstrate adequate oxygenation and perfusion d/b spo2>90% on RA this kristin ft. Interventions: 1. Patient will be encouraged/instructed on proper use of RETAIL AREA MANAGER and to inform RN if pain not adequately controlled. RETAIL AREA MANAGER dose will be titrated for adequate pain [...] -drsg changed 11/08 , LR @ 125, RETAIL AREA MANAGER 0.3 q 8 Diet/GI: NPO exc meds, [...] Last pain assessment/reassessment: pain well controlled with RETAIL AREA MANAGER and prn meds Toradol, for headache, Nubain [...] will be encouraged/instructed on proper use of RETAIL AREA MANAGER and to inform RN if pain not adequately controlled. RETAIL AREA MANAGER dose will be titrated for adequate pain relief, patient encoura ged to position for comfort and to utilize non-pharmacologic interventions such as hot/cold packs. 2. Patient will practice cdb/IS exercises 10x per hour, pt will ambulate in hallway x3, si t up to chair x3 this shift, and spo2 levels will be checked with vital signs. lan of Yuli Eaton RD, CSCYNDEE, LD - 11/09/2012 10:51 AM PDTProblem: Nutrition Interventions Intervention: Food and nutrient distribution type or amount No PO's since Thursday wants something to drink. Just started 1000 kcal/day Atkins diet - noah parikh MD suggested it. Pt reports 30lb [...] Following Yuli Childs RD, CNSC, LD Pager# [phone] Comments: Dylan Romero is a 37 y.o. [...] Needs: 1440-1875kcal/day (18-23kcal/kg AdjBW), 95-120g pro/day (2-2.5g/kg IBW)Kaykay buenrostro signed by Yuli Childs RD, CS[facility], LD at 11/09/2012 11:05 AM PDTEvaluation - [...] mbulation and mobility progress. 5. Assess skin [id number] and PRN. Educate on prevention of skin breakdown. Elevate heels and other pressure points. Ask MD to order nystatin powder for application underneath pannus. 6. Assess n/v Z9xzikr and PRN. Treat with PRN and/or scheduled anti-emetics. Educate on alt ernative techniques for nausea management Interventions that worked/didn't work:Pt continues to refuse to turn in bed, pain controlle d with RETAIL AREA MANAGER Dilaudid,denied nausea My recommendations forward:Encourage ambulation, good [...] -drsg changed today , LR @ 125, RETAIL AREA MANAGER 0.2 q 8 Diet/GI: NPO exc meds, ice chips ok, passing gas CBGs: q6 : voids Mobility: SBA, up in chair once this shift Wounds/Drains: transverse abdominal incision, DIAMOND drain x 1, skin breakdown under pannus,was h, clean dry apply nystatin and cream,pillow case x1 Critical labs: Critical meds: UA sent Orders to follow up on: Last pain assessment/reassessment: pain well controlled with RETAIL AREA MANAGER and prn meds Toradol, for headache, Nubain [...] mbulation and mobility progress. 5. Assess skin H2jmrwj and PRN. Educate on prevention of skin breakdown. Elevate heels and other pressure points. Ask MD to order nystatin powder for application underneath pannus. 6. Assess n/v A5qohhv and PRN. Treat with PRN and/or scheduled anti-emetics. Educate on alt ernative techniques for nausea management lan of Care - Fr Briana rodriguez RCP - 11/08/2012 2:50 PM PDT Problem: RT Goals & Interventions Goal: Evaluation History and Assessment Pulmonary problems: none 0Smoking history: History Smoking status Never Smoker Smokeless tobacco Not on file Results of recent Chest X-ray: CXR * 11/06/2012 Value: STUDY: DC CHEST 1 VIEW 11/06/12 16:46:00 INDICATION: Right upper lobe opacity. COMPARISON: Earlier same day a STUDY: DC CHEST 1 VIEW 11/06/12 16:46:00 COMPARISON: None. 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 No treatment Nee ded from RT standpoint. valuation - Geneva Villalobos RN - 11/08/2012 11:58 AM PDTNo notes of Plan of Care type on file. Interventions that worked/didn't work:Goals:to get OOB, to have a sponge bath, pain managem ent, to advance diet, change CVC Interventions:assist with ambulation, 2 person, up to the chair, RETAIL AREA MANAGER, iv toradol, tylenol a s needed for headache, ice chips, PATROL COMMUNITY SERVICE OFFICER at the bedside , reposition, help/assist student [...] -drsg changed today , LR @ 125, RETAIL AREA MANAGER 0.2 q 8 Diet/GI: NPO exc meds, [...] Last pain assessment/reassessment: pain well controlled with RETAIL AREA MANAGER and prn meds Toradol, for headache, Nubain [...] tive device. Patient used motorized scooter in [facility] only. Patient / Family Goal: To return home Communication: French Barriers: none Pain: 7/10 in abdomen at rest; pressed RETAIL AREA MANAGER appropriately Vital signs: stable per observation on [...] WatsonT Physical Therapist lan of Care - Sabino Barry parikh - 11/08/2012 7:31 AM PDTProblem: Case Management Goals Goal: Discharge Needs Met Outcome: Goal not met Initial Case Management Note Reason for admission: Incarcerated hernia. 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 Barry Cerrato RN, BSN [facility] and [address] [address] [email or web address] [phone] [phone] andoff - Ramon Austin RN - 11/08/2012 2:53 AM PDTRN EGS Handoff Report Primary focus of stay: incarcerated bowel and ileus, hernia repair 11/06 PmHx: HTN, DM, bipolar, depression, anxiety, migraines Pertinent physical findings: Vitals: vitals stable, but tachy at times Respiratory status: 4L NC, diminished in bases Isolation Precautions: none Access/fluids: RIJ and L PIV, LR @ 125, RETAIL AREA MANAGER 0.2 q 8 Diet/GI: NPO exc meds, [...] Last pain assessment/reassessment: pain well controlled with RETAIL AREA MANAGER/ Pt does think Dilaudid is giving her a constant RODRIGUES Psych/social issues: can be anxious at times Last visit (i.e. Falls/Activity/Comfort/Environment/Toileting/Skin): resting comfortably Anticipated or pending procedures: possible future [place] Discharge plan: TBD lan of Care - Charlotte Caldwell RN - 11/08/2012 2:49 AM PDTProblem: Infection, [...] mbulation and mobility progress. 5. Assess skin [id number] and PRN. Educate on prevention of skin breakdown. Elevate heels and other pressure points. Ask MD to order nystatin powder for application underneath pannus. 6. Assess n/v Z0amuwz and PRN. Treat with PRN and/or scheduled [...] RIJ and L PIV, LR @ 125, RETAIL AREA MANAGER 0.2 q 8 Diet/GI: NPO exc meds, NGT d/c today CBGs: q6 : FC Mobility: SBA, ambulated today on ICU Wounds/Drains: transverse abdominal incision, DIAMOND drain x 1, skin breakdown under pannus Critical labs: Critical meds: insulin drip?? Orders to follow up on: clarify insulin drip order Last pain assessment/reassessment: pain well controlled with RETAIL AREA MANAGER Psych/social issues: can be anxious at times Last visit (i.e. Falls/Activity/Comfort/Environment/Toileting/Skin): resting comfortably Anticipated or pending procedures: possible future [place] Discharge plan: TBD lan of Care - Zari Goodrich, [facility] - 11/07/2012 11:10 AM PDT Problem: RT [...] of working on IS and PEP chery leonidas 1 hour done, pt understands and will try to work on it. RN please remind pt to work on IS and PEP. Smoking history: History Smoking status Never Smoker Smokeless tobacco Not on file Results of recent Chest X-ray: CXR * 11/06/2012 Value: STUDY: DC CHEST 1 VIEW 11/06/12 16:46:00 INDICATION: Right upper lobe opacity. COMPARISON: Earlier same day a STUDY: DC CHEST 1 VIEW 11/06/12 16:46:00 COMPARISON: None. [...] for CPAP post extubation valuation - Miladis Braga, KELSIE - 11/06/2012 6:09 AM PDTProblem: Infection, Risk/Actual [...] mbulation and mobility progress. 5. Assess skin L1wfohu and PRN. Educate on prevention of skin breakdown. Elevate heels and other pressure points. Ask MD to order nystatin powder for application underneath pannus. 6. Assess n/v J3ceijm and PRN. Treat with PRN and/or scheduled [...] mbulation and mobility progress. 5. Assess skin J3qmczc and PRN. Educate on prevention of skin breakdown. Elevate heels and other pressure points. Ask MD to order nystatin powder for application underneath pannus. 6. Assess n/v C0xrxdk and PRN. Treat with PRN and/or scheduled anti-emetics. Educate on alt ernative techniques for nausea management (i.e. Side lying, distraction, deep breathing). Pl amanda NGT if ordered. andoff - Maria Luz, Claudia mujica RN - 11/06/2012 5:42 AM PDTRN EGS Handoff Report Primary focus of stay: 37 female admit from [facility] w/ possible incarcerated hernia, N/V, abdominal pain [...] in am, possible surgery? [facility] plan[facility] 11/06/2012 12:05 AM PDTDr Ny adv having trouble getting transport. Unable air. Th ey are trying to get a ground unit together. [facility] - 11/05/2012 10:54 PM PDTPer PPO pt [facility] 11/05/2012 10:06 PM PDTConnected. 37 yof. Had appendectomy previ ously, developed hernia on L side of incision. Appears to be incarcerated possibly strangula emely. Pt 404 lbs. Unable to get CT scanned. Pt vomiting, started at [address] Chun accepts pt with a bariatric bed, req 14A. Paged grp 18. [facility] - 11/05/2012 10:[address] Ramires. Paged EGS [address] Chun. documented in this encounter Plan of Treatment +--------+ + + + + | Date | Type | Specialty | Care Team | Description | +--------+ + + + + | 04/04/ | Telephone-S | Surgery | Orquidea Cristobal, | | | 2020 | sherrill | | CARE ADMINISTRATIVE TECH [address] | | | | | | [place], [place] | | | | | | [address] | | | | | | [phone] | | | | | | | [...] Mae | | | | | | Saxon | | | | + + + [...] [facility] | [address] | [place], [place] | | | [place] OF CARE | [address] | [address] | | | TESTS | | | [...] - [facility] | [address] | [place], [place] | | | [place] OF CARE | [address] | [address] | | | TESTS | | | [...] + + + + + | [facility] | [address] | [place] [address] | | | SERVICES, CORE | PARK [...] | + + + + + | [facility] | [address] | [place] [address] | | | SERVICES, LYDIA | CLARENCE [...] [facility] | [address] | [place] [address] | | | CLAIRE, LYDIA | CLARENCE [...] | 60 - 99 mg/dL | [facility] - | | | GLUCOSE, | [...] [facility] | [address] | [place], [place] | | | [place] [facility] [place] | [facility] | [address] | | | TESTS | | | [...] [facility] | [address] | [place], [place] | | | [place]INT OF CARE | [address] | [address] | | | TESTS | | | [...] [facility] | [address] | [place], [place] | | | JUSTINE DANW OF CARE | [facility] | [address] | | | TESTS | | | [...] [facility] | [address] | [place], [place] | | | [place] | [facility] | [address] | | | TESTS | | | [...] AMES | [address] | [place], [place] | | | [place] | [address] | [address] | | | TESTS | | | [...] | + + + + + | [facility] | [address] | [place] [address] | | | SERVICES, CORE | CLARENCE [...] MDRD equation recommended by the | [facility] | | National Kidney Disease Education [...] + + + + + | [facility] | [address] | [place] [address] | | | SERVICES, CORE | [address] | | | + + + + + MAGNESIUM, PLASMA (11/11/2012 3:38 AM PDT) + +---------+ + + + | Component | Value | Ref Range | Performed | Pathologist | | | | | At | Signature | + +---------+ + + + | MAGNESIUM,P | 1.5 (L) | 1.8 - 2.5 mg/dL | [facility] | | | LASMA | | | [...] | + + + + + | [facility] | [address] | [place] [address] | | | SERVICES, CORE | CLARENCE [...] [facility] | [address] | [place], [place] | | | [place]WN OF CARE | [address] | [address] | | | TESTS | | | [...] - [facility] | [address] | [place], [place] | | | [place] OF CARE | [facility] | [address] | | | TESTS | | | | + + + + + CAPILLARY BLOOD GLUCOSE (NO CHG), POC (11/10/2012 12:39 PM PDT) + +-------+ + + + | Component | Value | Ref Range | Performed | Pathologist | | | | | At | Signature | + +-------+ + + + | BLOOD | 86 | 60 - 99 mg/dL | [facility] [...] [facility] | [address] | [place], [place] | | | [place] OF CARE | [address] | [address] | | | TESTS | | | [...] [facility] | [address] | [place], [place] | | | [place] | [address] | [address] | | | TESTS | | | [...] - [facility] | [address] | [place], [place] | | | [place] [facility] | [facility] | [address] | | | TESTS | | | [...] [facility] | [address] | [place] [address] | | | SERVICES, CORE | PARK [...] | + + + + + | [facility] | [address] | [place] [address] | | | SERVICES, CORE | [address] [...] [facility] | [address] | [place] [address] | | | SERVICES, CORE | PARK [...] [facility] | [address] | [place], [place] | | | [facility] | [facility] | [address] | | | TESTS | | | [...] AMES | [address] | [place], [place] | | | JUST[place] DAWN OF CARE | [address] | [address] | | | TESTS | | | [...] [facility] | [address] | [place], [place] | | | [place]INT OF CARE | [address] | [address] | | | TESTS | | | [...] + | [facility] | [address] | [place] [address] | | | [place] | | | [...] [facility] | [address] | [place] [address] | | | SERVICES, CORE | PARK [...] | + + + + + | [facility] | [address] | [place] [address] | | | SERVICES, CORE | CLARENCE [...] [facility] | [address] | [place], [place] | | | [facility] [facility] [place] | [address] | [address] | | | TESTS | | | [...] [facility] | [address] | [place] [address] | | | SERVICES, CORE | PARK [...] + + + + + | [facility] | [address] | [place] [address] | | | SERVICES, CORE | PARK [...] | + + + + + | [facility] | [address] | [place] [address] | | | SERVICES, LYDIA | CLARENCE [...] [facility] | [address] | [place], [place] | | | JUST[facility] DAWN OF CARE | [address] | [address] | | | TESTS | | | [...] [facility] | [address] | [place], [place] | | | [place]INT OF CARE | [address] | [address] | | | TESTS | | | [...] + + + | [facility] | [address] | [place], [place] | | | [place] [facility] | [address] | [address] | | | TESTS | | | [...] | + + + + + | [facility] | [address] | [place] [address] | | | SERVICES, CORE | PARK [...] | + + + + + | [facility] | [address] | [place] [address] | | | CLAIRE, LYDIA | CLARENCE [...] + + + + + | [facility] | [address] | [place] [address] | | | SERVICES, CORE | CLARENCE [...] [facility] | [address] | [place], [place] | | | [facility] [facility] [place] | [address] | [address] | | | TESTS | | | [...] [facility] | [address] | [place], [place] | | | JUST[facility]WN OF CARE | [address] | [address] | | | TESTS | | | [...] [facility] | [address] | [place], [place] | | | [place] [facility] | [address] | [address] | | | TESTS | | | [...] | + + + + + | [facility] | [address] | [place] [address] | | | SERVICES, CORE | PARK [...] | + + + + + | [facility] | [address] [facility] | [place] [address] | | | SERVICES, CORE | CLARENCE [...] MDRD equation recommended by the | [facility] | | National Kidney Disease Education [...] + + + + + | [facility] | [address] | [place] [address] | | | SERVICES, CORE | [address] | | | + + + + + X-RAY PORTABLE CHEST 1 VIEW (11/06/2012 4:46 PM PDT) + + + + + + | Component | Value | Ref Range | Performed | Pathologist | | | | | At | Signature | + + + + + + | X-RAY | STUDY: DC CHEST 1 VIEW | | | | | PORTABLE | 11/06/12 16:46:00 | | | | | CHEST 1 | INDICATION: Right upper | | | | | VIEW | lobe opacity. | | | | | | COMPARISON: Earlier same | | | | | | day a STUDY: DC CHEST 1 | | | | | [...] | + +---------+ + + | [facility] DEPARTMENT OF | | | | | RADIOLOGY | | | | + +---------+ + + X-RAY PORTABLE CHEST 1 VIEW (11/06/2012 4:30 PM PDT) + + + + + + | Component | Value | Ref Range | Performed | Pathologist | | | | | At | Signature | + + + + + + | X-RAY | STUDY: DC CHEST 1 VIEW | | | | [...] [facility] | [address] | [place] [address] | | | SERVICES, CORE | CLARENCE [...] + + + + + | [facility] | [address] | [place] [address] | | | LYDIA RANGEL | CLARENCE [...] [facility] | [address] | [place] [address] | | | SERVICES, CORE | PARK [...] [facility] | [address] | [place], [place] | | | [facility]WN OF CARE | [address] | [address] | | | TESTS | | | [...] | | | POC | | | [place] POINT | | | | | | [...] [facility] | [address] | [place], [place] | | | [facility]WN OF CARE | [address] | [address] | | | TESTS | | | [...] [facility] | [address] | [place], [place] | | | [facility] [facility] [place] | [address] | [address] | | | TESTS | | | [...] [facility] | [address] | [place], [place] | | | [facility] [place] [place] | [facility] | [address] | | | TESTS | | | [...] | | POC | | mmol/L | [facility] | | [...] - [facility] | [address] | [place], [place] | | | [place] POINT OF CARE | [address] | [address] | | | TESTS | | | [...] | [facility] | [address] | [place], [place] | | | [place] [facility] | [address] | [address] | | | TESTS | | | [...] [facility] | [address] | [place], [place] | | | [facility] [facility] [place] | [facility] | [address] | | | TESTS | | | [...] - [facility] | [address] | [place], [place] | | | [facility] CARE | [address] | [address] | | | TESTS | | | [...] [facility] | [address] | [place], [place] | | | [place] POINT OF CARE | [address] | [address] | | | TESTS | | | [...] | | | DADA, | | | [facility] | | | [...] [facility] | [address] | [place], [place] | | | JUST[facility] DAWN OF CARE | [address] | [address] | | | TESTS | | | [...] [facility] | [address] | [place], [place] | | | [place] POINT OF CARE | [address] | [address] | | | TESTS | | | [...] + + + + + | [facility] | [address] | [place] [address] | | | SERVICES, | [address] [...] - [facility] | [address] | [place], [place] | | | [facility] [facility] | [facility] | [address] | | | TESTS | | | [...] [facility] | [address] | [place] [address] | | | SERVICES, | [address] [...] [facility] | [address] | [place] [address] | | | SERVICES, | [address] [...] [facility] | [address] | [place] [address] | | | SERVICES, CORE | PARK [...] | + + + + + | [facility] | [address] | [place] [address] | | | SERVICES, CORE | CLARENCE [...] [facility] | [address] | [place] [address] | | | LYDIA RANGEL | CLARENCE [...] + + + + + | [facility] | [address] | [place] [address] | | | SERVICES, LYDIA | CLARENCE [...] | + + + + + | [facility] | [address] | [place] [address] | | | SERVICES, CORE | CLARENCE [...] view image for the detailed interpretation from [employer] results. | CARDIOLOGY | + + + + + + + + | Performing | Address | City/State/Zipcode | Phone Number | | Organization | | | | + + + + + | [facility] | [address] | [place], [place] | | | CARDIOLOGY | [address] | [address] | | + + + + + [...] [facility] | [address] | [place] [address] | | | SERVICES, CORE | [address] [...] [facility] | [address] | [place] [address] | | | SERVICES, CORE | [address] | | | + + + + + documented in this encounter Visit Diagnoses + + | Diagnosis | + + | Incarcerated ventral hernia Ventral hernia, unspecified, with obstruction | + + documented in this encounter
--- OUTSIDE RECORDS SUMMARY | ~2020-03-26 | XMS | Encounter Summary ---
Demographics + + + | Address | [address] | | | [place] [address] | + + + | Home Phone [...] + | Katalina Padilla | ECON | [address] | | | | | [place], [place] | | | | | [address] | | + + + + + | Ellie Vang | ECON | Unknown | | + + + + + Care Team Providers + +------+ + | Care Burring Machine Operator Name | Role | Phone [...] | | | without | [place] | [address] | | | | | mention of | | Phone: | | | | | obstruction | | [phone] | | | | | or gangrene | | Fax: | | | | | | | [phone] | +--------+--------+ + + + + Encounter Details +--------+---------+ + + + | Date | Type | Department | Care Team | Description | +--------+---------+ + + + | 12/03/ | Office | Trauma Emergency | Juventino Dunaway, | Morbid obesity (HCC) | | 2012 | Visit | General Surgery at | MD | (Primary Dx); | | | | [facility] [address] | | Hernia | | | | [address] | | | | | | Phys[facility] [place], | | | | | | [address]nd Floor | | | | | | [place], [place] | | | | | | [address] | | | | | | [phone] | | | +--------+---------+ + + + [...] fine, afebrile. Abdominal exam is completely benign. [place] are still in, And wound is healed. [place] removed. Drainage is serous, very slight sanguinous. No eviden ce of deep subcutaneous infection. Abdominal wall currently intact. Drain site OK. Assessment/Plan: Satisfactory course following primary repair of incarcerated umbilical he rnia. Pt. Wants to obtain care, including drain removal and diabetic care in [place], so I have referred her to her PCP. Otherwise, I will see her back in 2 weeks. Drain could be removed when it is down to 30 - 40 ml/day. I refilled her Lidocaine cream. I spent 40 minutes with this pt., 75% in counseling her. documented in this encounter Procedure Notes Other, Faculty - 02/17/2013 8:51 AM PDTAssociated Order(s): RADIOLOGY ther, Faculty - 02/17/2013 8:51 AM PDTAssociat ed Order(s): RADIOLOGY docum ented in this encounter Plan of Treatment +--------+ + + + + | Date | Type | Specialty | Care Team | Description | +--------+ + + + + | 04/04/ | Telephone-S | Surgery | Orquidea Cristobal, | | | 2019 | sherrill | | FOUNDRY TENDER [address] | | | | | | [place], [place] | | | | | | [address] | | | | | | [phone] | | | | | | | [...]
--- OUTSIDE RECORDS SUMMARY | ~2020-03-26 | XMS | Encounter Summary ---
Demographics + + + | Address | [address] | | | [place] [address] | + + + | Home Phone [...] + | Katalina Padilla | ECON | [address] | | | | | [place], [place] | | | | | [address] | | + + + + + | Ellie Vang | ECON | Unknown | | + + + + + Care Team Providers + +------+ + | Care Sole Ruffer Name | Role | Phone | + [...] + + | 02/07/ | Hospital | [address] | Milana Landaverde, | | | 2014 - | Encounter | [address] | [address] | | | | | [place], [place] | [address] | | | 02/08/ | | [address] | [place], [place] | | | 2013 | | [phone] | [address] | | | | | | [phone] | | | | | | | [...] the resident s note. PRADIP STARR MD [facility] [address] [facility] [place] [phone] orrMaryam hill MD - 1:05 PM PDT [facility] DEPARTMENT OF SURGERY EMERGENCY GENERAL SURGERY [...] Type 2 DM who presented to the [facility] ED ([place], [place]) on 02/06/14, with a week hi story of RUQ abdominal pain that radiates to her back. There, she was found to have leukocyt osis and multiple tiny, mobile stones, + sonographic Peterson's sign on abdominal ultrasound, concerning for acute cholecystitis. She was givenIV antibiotics (cipro, flagyl) and pain med s, then transferred to [facility] by [facility] for further care. Ms. Romero endorsed [...] up with Trauma Emergency General Surgery at [facility] In 4 weeks. (follow up in 2-4 weeks ) Contact information [address] [facility] Mailcode: L223a [facility] [place] [address] Thank you for the [...] documented in this encounter Progress Notes Pradip Strar MD - 02/08/2014 5:17 AM PDTI saw and evaluated the patient. I agree with the findings and the plan of care as documented in the resident s note. PRADIP STARR MD [facility] [address] [place] [address] orrest, Maryam uY MD - 5:17 AM PDT [facility] [place] DEPARTMENT OF SURGERY EMERGENCY GENERAL SURGERY Division [...] tolerated MARYAM RHODES MD PGY-1, General Surgery [phone] pager number [facility] [place] A [address] [facility] [phone] documented in this encoun ter H&P Notes Milana Landaverde MD - 02/07/2014 3:31 AM PDTI saw and evaluated the patient. I agree with the findings and the plan of care as documented in the resident s note. MILNAA LAN[place] MD [address] [address] Stephanie Esposito MD,MPH - 02/07/2014 3:31 AM PDTFormatting of this note might be different from the origi nal. HISTORY AND PHYSICAL CC: abdominal pain HPI: Dylan Romero is a 38 y.o. Female with morbid obesity, bipolar disorder and Type 2 DM who presented to the [facility] ED ([place], [place]) on 02/06/14, with a week hi story of RUQ abdominal pain that radiates to her back. There, she was found to have leukocyt osis and multiple tiny, mobile stones, + sonographic Peterson's sign on abdominal ultrasound, concerning for acute cholecystitis. She was given iv antibiotics (cipro, flagyl) and pain m eds, then transferred to [facility] by [facility] for further care. Ms. Romero endorses [...] the resident s note. PRADIP STARR MD [facility] [address] [facility] [address] [facility] [place] [address] I was present for the entire procedure as described in the note for this encounter. PRADIP STARR MD [facility] [address] [facility] [address] [facility] [place] [address] Jacquelin Melendez MD - 02/07/2014 7:28 PM [...] the resident s note. PRADIP STARR MD [facility] [address] [facility] [place] [address] Francisco Snowden MD - 6:44 PM PDTAssociated [...] 0 Initial surgical contact: EGS at pager [phone] documented in this encoun ter Miscellaneous Notes [...] Events of this stay (w/date): Transfer from [place] PmHx: DMII;Migraines; open appy; umbilical hernia repair [...] Events of this stay (w/date): Transfer from [place] PmHx: DMII;Migraines; open appy; umbilical hernia repair [...] source of abdominal pain Discharge plan: TBD [facility] - Lissette Sewell RN - 02/07/2014 8:26 [...] pain medication information: none Functional Epidural: No FRENCH COMBER: No Respiratory: RR: 19, O2 Sat: 96 [...] FC Contact Name: Ellie Vang Contact Number: [phone] Family contacted: Yes Comment: Belongings:in Pt's room can - Other, Merged With [facility] ulty - 02/07/2014 9:24 AM PDT [...] Type 2 DM who presented to the [facility] ED ([place], [place]) on 01/24 11/07, with a week history of RUQ abdominal pain that radiates to her back. There, she was fo und to have leukocytosis and multiple tiny, mobile stones, concerning for acute cholecystit is. She was given iv antibiotics (cipro, flagyl) and pain meds, then transferred to [facility] by [facility] for further care. Pre-admission living situation: Lives in [facility] Pre-admission functional status: Hx of obesity Family/support system: Mother, Katalina Insurance/funding in place: FAMILY RESOURCE MANAGEMENT SPECIALIST Anticipated case management discharge needs: Will follow for any needs from CM depar tment See MD notes, AVS and any ancillary consultation notes for further discharge or f/u needs. Mary Alice Strauss RN, CM pager [phone] [facility] - Jaswinder Levineiel - 02/07/2014 3:04 AM PDTLF req extra help on the pad. Pt is obese. ED Charg e and Patient Transportation advised. 14 3:04 AM [facility] Ángel Alexia - 02/07/2014 3:03 AM PDTPt is large, LF12 req uesting extra help to the helipad. 3: 03 AM [facility] 02/07/2014 3:00 AM PDTLF12 enr, [...] Events of this stay (w/date): Transfer from [place] PmHx: DMII;Migraines; Lap appy; abdominal hernia repair [...] source of abdominal pain Discharge plan: TBD [facility] Jayant Bello - 02/06/2014 9:24 PM PDTGRP 18 [facility]. [facility] 02/06/2014 9:14 PM [id number]; Poss. Cholecystitis; Abd pain; Vom & Diarrhea. Morbid obesity 400+lbs. Upper Quad Tenderness. White count [phone]. EGS Dr. Akhil he Accepts pt REQ 10A. Electronically signed by Jayant mart 02/06/2014 9:16 PM [facility]THenry [facility] Hospital[facility] moraes - 02/06/2014 8:[address] Renee KHAN. documente d in this encounter Plan of Treatment +--------+ + + + + | Date | Type | Specialty | Care Team | Description | +--------+ + + + + | 04/04/ | Telephone-S | Surgery | Orquidea Cristobal, | | | 2019 | cheduled | | [employer]BE[employer] WIRE FINISHER [address] | | | | | | [facility] [place], [place] | | | | | | [address] | | | | | | [phone] | | | | | | | [...] MARQUAM | [address] | [place], [place] | | | [place] POINT OF CARE | [address] | [address] | | | TESTS | | | [...] MARQUAM | [address] | [place], [place] | | | [place] POINT OF CARE | [address] | [address] | | | TESTS | | | [...] + + + | [facility] AMES | [address] | [place], [place] | | | [place] [facility]INT OF CARE | [address] | [address] | | | TESTS | | | [...] MARQUAM | [address] | [place], [place] | | | [place] POINT OF CARE | [address] | [address] | | | TESTS | | | [...] | [address] | [place] [address] | | | SERVICES, | [address] [...] [facility] | [address] | [place] [address] | | | SERVICES, | [address] [...] - [facility] | [address] | [place], [place] | | | [facility]INE [facility]WN [facility] | [facility] | [address] | | | TESTS | | | [...] | [address] | [place] [address] | | | SERVICES, CORE | [address] | | | + + + + + LIPASE, PLASMA (02/07/2014 6:32 AM PDT) + +--------+ + + + | Component | Value | Ref Range | Performed | Pathologist | | | | | At | Signature | + +--------+ + + + | LIPASE | 80 (L) | 152 - 353 U/L | [facility] | | | (LAB) | | | [...] + | [facility] | [address] | [place] [address] | | | SERVICES, CORE | CLARENCE [...] + + | [facility] | [address] | [place] [address] | | | SERVICES, CORE | CLARENCE [...] [facility] | [address] | [place] [address] | | | LYDIA RANGEL | CLARENCE [...] | | | LABORATORY | | | FILIPINO | | | SERVICES, | | | [...] + + | [facility] | [address] | [place] [address] | | | SERVICES, LYDIA | CLARENCE [...] KWAKU | [address] | [place], [place] | | | L[place] [facility]MOND [facility] | [address] | [address] | | | TESTS | | | [...] pattern. | | | | | | System Support Analyst | | | | | | sections [...] | + + + + + | [facility] | [address] | [place] [address] | | | PATHOLOGY | [address] [...]
--- OUTSIDE RECORDS SUMMARY | ~2020-03-26 | XMS | Encounter Summary ---
Demographics + + + | Address | [address] | | | [place] [address] | + + + | Home Phone [...] [place], [place] | | | | | [address] | | + + + + + | Ellie Vang | ECON | Unknown | | + + + + + Care Team Providers + +------+ + | Care Co Founder & Ceo Name | Role | Phone | + +------+ + | Fadi Goodrich DO | PCP | | + +------+ + Encounter Details +--------+------+ + + + | Date | Type | Department | Care Team | Description | +--------+------+ + + + | 08/28/ | Lab | Laboratory at [facility] | | Type 2 diabetes | | 2014 | | [address] | | mellitus (HCC) | | | | [facility] | | | | | and Healing, | | | | | | Building [address] | | | | | | [place], [place] | | | | | | [address] | | | | | | [phone] | | | +--------+------+ + + + [...] | 2019 | sherrill | | 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
--- OUTSIDE RECORDS SUMMARY | ~2020-03-26 | XMS | Encounter Summary ---
Demographics + + + | Address | [address] | | | [place] [address] | + + + | Home Phone [...] Team Providers + +------+ + | Care Green Chain Marker Name | Role | Phone | + +------+ + PCP | Unavailable | + +------+ + Encounter Details +--------+ + + + + | Date | Type | Department | Care Team | Description | +--------+ + + + + | 12/13/ | Hospital | [facility] | Erich Wells | | | 2003 | Encounter | MED CTR SLEEP | MD Michael [address] | | | | | [place] [address] | [address] [facility] | | | | | [place], [place] | [place] [address] | | | | | [address] | [phone] | | | | | [phone] | | | +--------+ + + + [...] RICHEY | | | | | | [place] [address] | | | | | | [phone] | | | | | | | | +--------+ + + + + | 04/18/ | Procedure | Neurology | Camille De La Paz, | | | 2019 | visit | | MD Saumya MOE | | | | | | [address] | | | | | | [place] [address] | | | | | | [phone] | | | | | | | | +--------+ + + + + documented as of this encounter Visit Diagnoses Not on filedocumented in this encounter"
--- OUTSIDE RECORDS SUMMARY | ~2020-03-26 | XMS | Encounter Summary ---
Demographics + + + | Address | [address] | | | [place] [address] | + + + | Home Phone [...] [place], [place] | | | | | [address] | | + + + + + | Ellie Vang | ECON | Unknown | | + + + + + Care Team Providers + +------+ + | Care Barrel Assembly Inspector Name | Role | Phone | [...] Raymond Gilman, | Committee Review | | 2014 | Review | Center at [facility] [address] | MD | Decision | | | | [facility] | | | | | | [facility] and | | | | | | [facility], [place] [address] | | | | | | [place], [place] | | | | | | [address] | | | | | | [phone] | | | +--------+ + + + [...] this encounter Miscellaneous Notes Committee Review - Gris Fontana RN - 03/22/2015 11:16 AM PDTThis patient was discussed at Bariatric High Risk Committee Meeting on March 08, 2015. Reason for review: Inability to lose weight. Medical history and pre-op evaluations reviewed. Recommendations: 1. Refer back to Dr. Franks for further assistance with weight loss. Disposition: 1. Patient has an appt scheduled with Dr. Franks for 04/03/15. documented in this enco unter Plan of Treatment +--------+ + + + + | Date | Type | Specialty | Care Team | Description | +--------+ + + + + | 04/04/ | Telephone-S | Surgery | Orquidea Cristobal, | | | 2020 | cheduled | | [facility] [address] | | | | | | [place], [place] | | | | | | [address] | | | | | | [phone] | | | | | | | | +--------+ + + + + documented as of this encounter Visit Diagnoses Not on filedocumented in this encounter"
--- OUTSIDE RECORDS SUMMARY | ~2020-03-26 | XMS | Encounter Summary ---
Demographics + + + | Address | [address] | | | [place] [address] | + + + | Home Phone [...] [place], [place] | | | | | [address] | | + + + + + | Ellie Vang | ECON | Unknown | | + + + + + Care Team Providers + +------+ + | Care Advertising Assistant Manager Name | Role | Phone [...] Order | [address] [place], [place] | | | | | [address] | [address] | | | | | Francesco [place], | [phone] | | | | | 4th floor [place], | | | | | | [place] [address] | | | | | | [phone] | | | +--------+ + + + [...] | | 2019 | sherrill | | [facility] [address] | | | | | | [place], [place] | | | | | | [address] | | | | | | [phone] | | | | | | | | +--------+ + + + + documented as of this encounter Results EGD (06/23/2018 3:58 PM PST) + + | Specimen | + + | | + + + +--------- -----+ | Narrative | Roseanna d At | + +--------- -----+ | MRN: | NKECHI | | [id number] Date: 06/23/2018Patient Name: Elzbieta Curtis #: | ENDOSCOP Y | | [id number] of : [id number]: [id number] Type: | | | AmbulatoryRoom: SORProcedure: Upper GI | | | endoscopyIndications: Nausea with vomiting, Status post | | | Tbmw-kd-QAqmoppdgp: KALEB MILES MD (Doctor)JOSE | | | NASIMA, Pediatric Psychologist | | | (Pediatric Psychologist)Referring MD: DANIELLE GARCÍAPRemateusz | | | Provider: [...] | | | The Olympus [id number] Gastroscope #[id number] was | | | introduced through the [...] endoscope without resistance. The | | | pmdda-lj-vzfkbwa limb was characterized by healthy appearing | [...] Initiated On: | | | 06/23/2018 3:58 [facility] Letter to: RADHA MICHAEL DO | [...]
--- OUTSIDE RECORDS SUMMARY | ~2020-03-26 | XMS | Encounter Summary ---
Demographics + + + | Address | [address] | | | [place] [address] | + + + | Home Phone [...] [place], [place] | | | | | [address] | | + + + + + | Ellie Vang | ECON | Unknown | | + + + + + Care Team Providers + +------+ + | Care Key Entry Operator Name | Role | Phone | [...] | | 2019 | | Center at [facility] [address] | [facility] [address] | | | | | [facility] | [place], [place] | | | | | [facility] and | [address] | | | | | [place] [address] | [phone] | | | | | [place], [place] | | | | | | [address] | | | | | | [phone] | | | +--------+ + + + [...] - 04/04/2019 3:40 PM PDTSeryesenia mujica from [facility] called seeking additional information on IV extension Lync'd and transferred to RN elephone Encounter - Mayi Pacheco MA - 04/04/2019 2:28 PM PDTI spoke to the [facility] PCP office and they will let the [...] As per PCP covering provider: (Keerthi Prakash [facility]) Pt is still very dehydrated. [...] | | 2019 | sherrill | | [facility] [address] | | | | | | [place], [place] | | | | | | [address] | | | | | | [phone] | | | | | | | | +--------+ + + + + documented as of this encounter Visit Diagnoses Not on filedocumented in this encounter"
--- OUTSIDE RECORDS SUMMARY | ~2020-03-26 | XMS | Encounter Summary ---
Demographics + + + | Address | [address] | | | [place] [address] | + + + | Home Phone [...] [place], [place] | | | | | [address] | | + + + + + | Ellie Vang | ECON | Unknown | | + + + + + Care Team Providers + +------+ + | Care Statistician Applied Name | Role | Phone | + [...] PRINCE Herminio | | | | | [place], [place] | [address] | | | [birth year]/ | | [address] | [place], [place] | | | 2014 | | [phone] | [address] | | | | | | [phone] | | | | | | | [...] port site who was transferre d to [facility] for concern of an incarcerated hernia. [...] mouth once daily. , Historical Med CALCIUM CRB&UYN-B0-[id number]-GENIS ORAL Take 1 tablet by mouth two [...] Randell Franks Cardiology Preventive at [facility] [phone] Cardiology 04/09/2015 1:00 PM Egs Ppv Tra Trauma Emergency General Surgery at [facility] [phone] [facility] Outstanding labs/studies: None Discharging Physician: GABO LANGSTON MD Attending Physician: Dr. Cantu PCP: Fadi Goodrich DO Signed: GABO LANGSTON MD Pager #[phone] Surgical Equestrian Trainer [facility] Associated attestation - Tye Carrillo DO - 03/12/2015 9:12 AM PDTAttending: I discussed this patient with the resident and agree with the assessment and plan as outlin ed in this note and participated in the planning of care. Tye Carrillo DO, SIDRA, FACS Division of Trauma, Critical Care & Acute Care Surgery [facility] [phone] documented in this encounter Medications at Time of Discharge + + + +---------+--------+ + | Medication | Sig | Dispensed | Refills | Start | End Date | | | | | | Date | | + + + +---------+--------+ + | CALCIUM | Take 2 tablets by | | 0 | | | | CRB&PDO-S8-MHG71-GEN | mouth two times | | | [...] might be differ ent from the original. [facility] DEPARTMENT OF SURGERY EMERGENCY [...] obesity with known ventral hernias transferred to [facility] for surgical managem ent of ventral hernia, now s/p repair. Post surgical pain: -patient ready for d/c, discussed f/u. Patient lives far away and has other appointments at [facility]. Will attempt to coordinate appointments. Discharge Plan: D/c today GABO LANGSTON MD Pager #[phone] Surgical Equestrian Trainer [facility] Nataliia Mendez, Salomón Person - 03/02/2015 1:12 PM PDT [facility] DEPARTMENT OF SURGERY EMERGENCY GENERAL SURGERY Division of Trauma and Critical Care Attending Physician: Shahid Cantu MD Progress Note Note Date: 03/02/2015 Admission Date: 2015 DYLAN ROMERO, Hospital Day #2 40 F PMH morbid obesity (BMI 71 today), DM2, depression, GERD, h/o stroke at age 18, and kn own ventral hernias transferred to [facility] for surgical treatment of suspected incarcerated [...] obesity with known ventral hernias transferred to [facility] for surgical managem ent of ventral [...] will be robel ing her home to [place], [place]. CALVIN ROMERO MD PGY-1 Anesthesiology Pager: [phone] [facility] [address] [place] [address] Marleny Oneill MD - 03/02/2015 8:26 AM [id number] Calvin William Md - 03/01/2015 5:34 PM PDT Brief Post Operative Note: 40 F PMH morbid obesity (BMI 71 today), DM2, depression, GERD, h/o stroke at age 18, and kn own ventral hernias transferred to [facility] for surgical treatment of incarcerated ventral [...] control CALVIN ROMERO MD PGY-1 Anesthesiology Pager: [phone] signed by Calvin Romero Md at 03/01/2015 5:41 PM PDTdocumente d in this encounter H&P Notes Jostin Brunner MD - 2015 8:12 PM PDTFormatting of this note might be differen t from the original. Emergency General Surgery - Admission Note Patient: Dylan Romero ([id number]) Author: Jostin Brunner MD Attending: Dagoberto Colón MD Date: 2015 Reason for Admission: Abdominal pain HPI: Dylan Romero is a 40 y.o. female with morbid obesity (BMI 71 today), DM2, depressi on, GERD, h/o stroke at age 18, and known ventral hernias who is transferred to [facility] from [facility] in [place], [place] with 3 days of abdominal pain, [...] 2013. All surgeries have been performed at [facility]. She has known hernia recurrence in her ventral midline and umbilicus. She is parti cipating in the [facility] Bariatrics program and has lost 100 lbs [...] Socal History: Lives with her mother in [place], [place] Former smoker Denies alcohol, current smoking, and illicits Prior to Admission Medications Prescriptions ALPRAZolam 1 mg oral tablet Sig: Take 1 mg by mouth three times daily as needed for anxiety. CALCIUM CRB&AYF-L6-OHD81-GENIS ORAL Sig: Take 1 tablet by mouth [...] No urinary catheter in place Labs: WBC: 03/27 Hgb: 11.5 Hct: 38.5 Plt: 256 Na: [...] NPO Jostin Brunner MD R3 EGS Pager: [phone] documented in this e ncounter Procedure Notes Shahid Cantu MD - 03/02/2015 9:15 AM PDTAssociated Order(s): OPERATION RECORDDate of Jacy scott: 03/01/2015 Attending Surgeon: Shahid Cantu MD Trim Machine Operator(s): Howie Angeles MD, R5 Marleny Galvan MD, [...] diabetes and morbid obesity with a B AL of 71, and known ventral hernia from [...] the entire procedur e. Shahid Cantu MD Sales Account Director Trauma, Critical Care & Acute Care Surgery Shahid Cantu MD TBK/MODL /[id number] signed by Shahid Cantu MD at 03/05/2015 10:25 AM Marleny Oneill MD - 03/01/2015 11:58 AM PDTAssociated Order(s): PROCEDURE NOTEBRIEF O PERATIVE NOTE Procedure Date: 03/01/2015 Author: MARLENY GALVAN MD Attending Physician: Chris Cantu MD Assistants: Howie Angeles, R5; Juma Galvan, R2; Nicole Barraza, MS3; Smith Beaulieu, MS3 Preoperative Diagnosis: Incisional Hernia Postoperative Diagnosis: [...] Initial surgical contact: Juma Galvan at pager [phone] Associated attestation - Shahid Cantu MD - 03/02/2015 8:24 AM PDTA full operative note will be dictated by Dr. Marleny Galvan, the resident surgeon. Pursuant to federal Medicare and Medicaid regulations I was present for the entire procedur e including the critical portions. Shahid Cantu MD Sales Account Director Trauma, Critical Care & Acute Care Surgery documented in this encounter Miscellaneous Notes Handoff - Jj Arizmendi RN - 03/03/2015 10:35 AM PDTNursing Handoff Patient Daily Goal: Pain will be under control (03/03/15 0015) [facility] IP NURSE HANDOFF: Jiang hospital course [...] 10A staff. Discharge Nurse: JJ ARIZMENDI RN avio - Miladis Braga RN - 03/03/2015 12:47 AM PDTNursing Handoff Patient Daily Goal: Pain will be under control (03/03/15 0015) [facility] IP NURSE HANDOFF: COMFORT/ANXIETY/BEHAVIOR Patient Target: Patient pain level will be under control As evidenced by: Dylan wanted her 10mg of oxycodone every three hours overnight to keep her pain controlle d. She had asked to be woken up during the night when the medication was due to be given. MT N ibuprogen and tylenol was also offered in conjunction with oxycodone. NURSING ASSESSMENT & RECOMMENDATIONS FORWARD Nursing Assessment of Patient Stability Risk: Moderately stable Recommendations Forward: Continue to offer 10mg oxycodone Q 3 hrs alternating with tylenol and ibuprofen. Offer non-pharmacologic pain relief interventions in addition to pharmacologi c. andBranden Veronica RN - 03/02/2015 3:24 PM PDTNursing Handoff [facility] IP NURSE HANDOFF: Jiang hospital course [...] adequate pain control lan of Care - EvetteMilana - 03/02/2015 11:43 AM PDTProblem: Case Management Goals Goal: Discharge Needs Met Per chart review and/or discussion with patient/family members and team, no discharge plann ing assistance from RN CM anticipated at this time. Will continue to follow through discharg e. Please see other disciplines' progress notes for their discharge recommendations. Please page caser shoe parts if any CM arranged service needs arise. Patient states sister coming to [facility] [place] [id number] Mariah Chen RN - 03/02/2015 3:41 AM PDTNursing Handoff [facility] IP NURSE HANDOFF: Jiang hospital course [...] Additional pain medication information: Functional Epidural: No ORDER CHECKER: No Respiratory: RR: 20, O2 Sat: 96 %, O2 Delivery: Nasal cannula Breath Sounds: WDL Except ALFRED: clear;diminished LLL: clear;diminished RUL: clear;diminished RLL: clear;diminished AMARA No Comment: risk for AMARA due to obesity Cardiac: BP: 116/61 mmHg HR: 79 GI: Nausea/Vomiting Status: No Signs/Symptoms: Interventions: Assessment: Comments: no ponv : Last void: Ruiz Contact Name: Mom: Katalina Padilla Contact Number: [phone] Family contacted: Yes Comment: Will contact prior to transfer Belongings: with family lan of Care - Charo Fletcher RN - 03/01/2015 1:19 PM PDTProblem: Perioperative [...] of 4-5 in the abdomen r [facility]. [facility] Galina Rosas - 2015 6:15 PM PDTHernoe Fire 1475, 40 yof, needs hernia operation , almost 400 lbs, 10/10 pain, baseline is 8/10 pain, given morphine 4 hours ago before [facility], vitals BP 120 systolic, hr 80-100, rr normal, now complaining of nausea likely from pain, pt on saline lock, medics are a BLS unit unable to give pain meds, ETA 15 mins Advised receiving RN Comm Tomasz Jeffers - 2015 10:47 AM PDT40 yof, incarcerated incisional hernia, R Abdomen, tender, non-toxic, 100lb weight loss (goal 142lbs) morbid obesity, BMI 74, curre nt weight: 382lbs, BMI 74, Bariatric bed, Gen Surg Bed, Dr Gann. Transport TBD, pt on [facility] at [facility]. documented in this encounte r Plan of Treatment +--------+ + + + + | Date | Type | Specialty | Care Team | Description | +--------+ + + + + | 04/04/ | Telephone-S | Surgery | Orquidea Cristobal, | | | 2020 | cheduled | | RADIOLOGY SUPERVISOR [address] | | | | | | [place], [place] | | | | | | [address] | | | | | | [phone] | | | | | | | [...] | | Attending Surgeon: Shahid Cantu MD Trim Machine Operator(s): Howie Angeles MD, R5 | | Marleny [...] and scrubbed for the entirety of the case.Marleny Galvan MDPursuant | | to federal Medicare and Medicaid regulations I was present for the entire | | procedure.Shahid Dailey ProfessorTrauma, Critical Care & Acute Care | | SurgeryShahid Cantu MDTBMoni/MODLDD: 03/02/2015 08:25:39DT: 03/02/2015 09:15:57Job #: | | [id number] | | | |Dr. Chris Cantu was present and scrubbed for the entirety of the case. | | | | | | | |Marleny Galvan MD | | | |Pursuant to federal Medicare and Medicaid regulations I was present for the entire procedur e. | | | | | | | |Shahid Cantu MD | |Sales Account Director | |Trauma, Critical Care & Acute Care Surgery | | | | | | | |Shahid Cantu MD | |TBK/MODL | | | | | | /[id number] | + ---+ CAPILLARY BLOOD GLUCOSE (NO [...] MARQUAM | [address] | [place], [place] | | | [facility] OF CARE | [facility] | [address] | | | TESTS | | | [...] (H) | 60 - 99 mg/dL | MSSU - | | | GLUCOSE, | | [...] MARQUAM | [address] | [place], [place] | | | [place] POINT OF CARE | [address] | [address] | | | TESTS | | | [...] AMES | [address] | [place], [place] | | | [place] [address] OF CARE | [address] | [address] | | | TESTS | | | [...] MARQUAM | [address] | [place], [place] | | | [facility] OF CARE | [address] | [address] | | | TESTS | | | [...] (H) | 60 - 99 mg/dL | MSORIN - | | | GLUCOSE, | | [...] MARQUAM | [address] | [place], [place] | | | [facility] OF CARE | [facility] | [address] | | | TESTS | | | [...] AMES | [address] | [place], [place] | | | [place] [address]INT OF CARE | [address] | [address] | | | TESTS | | | [...] [facility] | [address] | [place] [address] | | | SERVICES, CORE | PARK [...] | | | LABORATORY | | | IRAQI | | | SERVICES, | | | [...] the MDRD equation recommended by the | [facility] | | National Kidney Disease Education [...] [facility] | [address] | [place] [address] | | | LYDIA RANGEL | CLARENCE [...] (H) | 60 - 99 mg/dL | [facility] [...] AMES | [address] | [place], [place] | | | [place] POINT OF CARE | [address] | [address] | | | TESTS | | | [...] KWAKU | [address] | [place], [place] | | | [address]WN OF JAKY | [address] | [address] | | | TESTS | | | [...] YAKOVAM | [address] | [place], [place] | | | [facility] [address] OF JAKY | [facility] | [address] | | | TESTS | | | [...] (H) | 60 - 99 mg/dL | [facility] [...] AMES | [address] | [place], [place] | | | [place] POINT OF CARE | [address] | [address] | | | TESTS | | | [...] KWAKU | [address] | [place], [place] | | | [facility] [place] OF [place] | [address] | [address] | | | TESTS | | | [...] [facility] | [address] | [place] [address] | | | SERVICES, CORE | CLARENCE [...] AMES | [address] | [place], [place] | | | [place] DAWN OF JAKY | [address] | [address] | | | TESTS | | | [...] injection 1 dose, | | | Starting [facility] 03/01/15 at 1215, | | | Until [facility] 03/01/15 at 1216 | | + +---+ | | | + +---+ + +-------+ +-------+---+---+ | FLUoxetine (PROZAC) capsule 40 | Given | 03/03/20 | 40 mg | | | | mg 40 mg, oral, DAILY, First | | 15 8:32 | | | | | dose on [facility] 03/01/15 at 0900, Until | | [...] mL/hr | mL/hr | | | Starting [facility] 03/01/15 at 0045, | | AM [...] | | | | | 1630, Until 03/02/15 at 1019, | | | | | [...] | | | DAILY, First dose on [facility] 03/01/15 | | AM PDT | | [...] | | dose on [facility] 03/01/15 at 0900, Until | | [...]
--- OUTSIDE RECORDS SUMMARY | ~2020-03-26 | XMS | Encounter Summary ---
Demographics + + + | Address | [address] | | | [place] [address] | + + + | Home Phone [...] [place], [place] | | | | | [address] | | + + + + + | Ellie Vang | ECON | Unknown | | + + + + + Care Team Providers + +------+ + | Care Early Childhood Coordinator Name | Role | Phone | [...] floor | | | | | | [place], [place] | | | | | | [address] | | | +--------+ + + + [...] | | 2019 | sherrill | | HIDE MILL MAN [address] | | | | | | [place], [place] | | | | | | [address] | | | | | | [phone] | | | | | | | | +--------+ + + + + documented as of this encounter Visit Diagnoses Not on filedocumented in this encounter"
--- OUTSIDE RECORDS SUMMARY | ~2020-03-26 | XMS | Encounter Summary ---
Demographics + + + | Address | [address] | | | [place] [address] | + + + | Home Phone [...] + | Katalina Padilla | ECON | [address] | | | | | [place], [place] | | | | | [address] | | + + + + + [...] | | | | | | [place], [place] | | | | | | [address] | | | | | | [phone] | | | +--------+ + + + [...] | 2020 | cheduled | | HAND TURNER [address] | | | | | | [place], [place] | | | | | | [address] | | | | | | [phone] | | | | | | | | +--------+ + + + + documented as of this encounter Visit Diagnoses Not on filedocumented in this encounter"
--- OUTSIDE RECORDS SUMMARY | ~2020-03-26 | XMS | Encounter Summary ---
Demographics + + + | Address | [address] | | | [place] [address] | + + + | Home Phone [...] [place], [place] | | | | | [address] | | + + + + + | Ellie Vang | ECON | Unknown | | + + + + + Care Team Providers + +------+ + | Care Anthropologist Name | Role | Phone | + [...] | | | | | [place], | [place], [place] | | | | | | [place] [address] | [address] | | | | | | Phone: | Phone: | | | | | | [phone] | [phone] | | | | | | Fax: | Fax: | | | | | | [phone] | [phone] | +--------+--------+ + + + + Encounter Details +--------+---------+ + + + | Date | Type | Department | Care Team | Description | +--------+---------+ + + + | 04/03/ | Office | Cardiology | Randell Franks, | Morbid obesity (HCC) | | 2014 | Visit | Preventive at [facility] | [address] | (Primary Dx); Type | | | | [address] | [place], [place] | 2 diabetes mellitus | | | | [facility] | [address] | without complication | | | | and Healing, | [phone] | ([facility]) | | | | [address] | | | | | | [place], [place] | | | | | | [address] | | | | | | [phone] | | | +--------+---------+ + + + [...] 500 mg by mouth once daily. CALCIUM CRB&YRQ-B1-KAJ36-GENIS ORAL Take 1 tablet by mouth two [...] She is working with the bariatric surgery leaf tier to try to achieve this. She states [...] visit Diet: healthy, working with Bar Surg leaf tier Exercise: "I walk everywhere." ROS: No CP, [...] | | 2019 | sherrill | | BRANCH LIBRARY CLERK [address] | | | | | | [place], [place] | | | | | | [address] | | | | | | [phone] | | | | | | | | +--------+ + + + + documented as of this encounter Visit Diagnoses + + | Diagnosis | + + | Morbid obesity (HCC) - Primary Morbid obesity | + + | Type 2 diabetes mellitus without complication (HCC) | + + documented in this encounter
--- OUTSIDE RECORDS SUMMARY | ~2020-03-26 | XMS | Encounter Summary ---
Demographics + + + | Address | [address] | | | [place] [address] | + + + | Home Phone [...] Organization | [facility] [...] + +------+ + | Care Continuous Improvement Analyst Name | Role | Phone | + +------+ + PCP | Unavailable | + +------+ + Encounter Details +--------+ + + + + | Date | Type | Department | Care Team | Description | +--------+ + + + + | 10/07/ | Orders Only | [facility] | Dharmesh Escobar, | | | 2017 | | NEPHROLOGY [place] | CATALYST OPERATOR CHIEF [address] | | | | [address] | [address] | | | | | [address] [place], [place] | [place] | | | | | [address] | [address] | | | | | [phone] | [phone] | | | | | | | [...] RICHEY | | | | | | [place] [address] | | | | | | [phone] | | | | | | | | +--------+ + + + + | 04/18/ | Procedure | Neurology | Camille De La Paz, | | | 2019 | visit | | [address] | | | | | | [address] | | | | | | [place] [address] | | | | | | [phone] | | | | | | | [...] | | | LAB | | | [place] | | | | | + +---------+ [...]
--- OUTSIDE RECORDS SUMMARY | ~2020-03-26 | XMS | Encounter Summary ---
Demographics + + + | Address | [address] | | | [place] [address] | + + + | Home Phone [...] Providers + +------+ + | Care Rn Hemodialysis Name | Role | Phone | + +------+ + | Fadi Goodrich DO | PCP | | + +------+ + Reason for Visit + +--------+ + | Reason | Onset | Comments | | | Date | | + +--------+ + | Bariatric Nutrition | 11/15/ | 11/03 and 11/06 phone calls | | | 2014 | | + +--------+ + Encounter Details +--------+ + + + + | Date | Type | Department | Care Team | Description | +--------+ + + + + | 11/15/ | Telephone | Digestive Health | [address], | Bariatric Nutrition | | 2014 | | [place] [facility] [address] | [facility] [place] [address] | (11/03 and 11/06 phone | | | | [facility] | [address] | calls) | | | | for Health and | [place], [place] | | | | | [place] [address] | [address] | | | | | [place], [place] | [phone] | | | | | [address] | | | | | | [phone] | | | +--------+ + + + [...] this encounter Miscellaneous Notes Telephone Encounter - Yuli Childs RD, APOLINAR, GEMA - 11/15/2014 8:17 AM PDTSpoke with Elzbieta Ordaz's pst manager on 11/03 and 11/06 (also see 11/08 notes from Gris borrero RN for more details). Parul expressed concern that Elzbieta's pre-surgery diet is causin g hypoglycemia and low blood sugar. Encouraged her to have Elzbieta follow up with her PCP with any concerns regarding insulin management & blood sugar control. Discussed purpose of pre-s urgery diet is to promote weight loss and reduce size of the liver. Faxed Parul copies of handouts given to the patients with detailed instructions regarding pre-surgery diet (both c arbohydrate controlled diet and liver reduction diet, see Media tab). Elzbieta attended pre-emerson jerrica class on 11/03 & during this class we carbohydrates (sources and portion sizes). After c lass Elzbieta asked me for examples of carbohydrate containing foods. This leaves me with tamiko rns about her ability to manage her diet without assistance. I discussed these concerns with her pst manager, and our team (MD, RN, TEXTILE STYLIST). I encouraged closer f/u with her PCP given that Elzbieta lives in [place] (~3.5 hours away). Elzbieta has a follow up with HA at [facility] December 26 (the earliest she can afford to come in). I am available to assist RN, PCP & any other i nterested parties as needed until then. See RD notes from visits in Chart Review section. Yuli Childs RD, [facility] [place] Pager# [phone] documented teddy n this encounter Plan of Treatment +--------+ + + + + | Date | Type | Specialty | Care Team | Description | +--------+ + + + + | 04/04/ | Telephone-S | Surgery | Orquidea Cristobal, | | | 2019 | sherrill | | LEATHER CARTRIDGE BELT MAKER [address] | | | | | | [place] | | | | | | [address] | | | | | | [phone] | | | | | | | | +--------+ + + + + documented as of this encounter Visit Diagnoses Not on filedocumented in this encounter"
--- OUTSIDE RECORDS SUMMARY | ~2020-03-26 | XMS | Encounter Summary ---
Demographics + + + | Address | [address] | | | [place] [address] | + + + | Home Phone [...] [place], [place] | | | | | [address] | | + + + + + | Ellie Vang | ECON | Unknown | | + + + + + Care Team Providers + +------+ + | Care Conveyor Man Name | Role | Phone | + +------+ + | Fadi Goodrich DO | PCP | | + +------+ + Encounter Details +--------+ + + + + | Date | Type | Department | Care Team | Description | +--------+ + + + + | 10/27/ | Abstract | Digestive Health | Clinic, Surgery | | | 2018 | | [place] [facility] [address] | | | | | | [facility] | | | | | | for Health and | | | | | | [facility] [address] | | | | | | [place], [place] | | | | | | [address] | | | | | | [phone] | | | +--------+ + + + [...] | | 2019 | sherrill | | BAR TACKER SEWING MACHINE [address] | | | | | | [place], [place] | | | | | | [address] | | | | | | [phone] | | | | | | | | +--------+ + + + + documented as of this encounter Visit Diagnoses Not on filedocumented in this encounter"
--- OUTSIDE RECORDS SUMMARY | ~2020-03-26 | XMS | Encounter Summary ---
Demographics + + + | Address | [address] | | | [place] [address] | + + + | Home Phone [...] Providers + +------+ + | Care Assembly Machine Offbearer Name | Role | Phone | + +------+ + | Jorje Hill | PCP | | + +------+ + Reason for Visit +--------+--------+ + | Reason | Onset | Comments | | | Date | | +--------+--------+ + | Other | 02/12/ | Medication | | | 2020 | | +--------+--------+ + Encounter Details +--------+ + + + + | Date | Type | Department | Care Team | Description | +--------+ + + + + | 02/12/ | Telephone | [facility] | Camille De La Paz, | Other (Medication) | | 2020 | | NEUROLOGY [address] | | | | [address] | [facility] | | | | | [place], [place] | [place] [address] | | | | | [address] | [phone] | | | | | [phone] | | | +--------+ + + + [...] this encounter Miscellaneous Notes Telephone Encounter - Varsha Gee CMA - 03/05/2020 2:16 PM PDTCalled patient gualberto garcía inbox message. She stated understanding. Confirmed appt on 03/21/2020 at 8:45am. Electr onically signed by Varsha Gee CMA at 03/05/2020 2:17 PM PDTTelephone Encounter - Camille Miller MD - 03/05/2020 12:27 PM PDTWill discuss at appt in 2 weeks. Stay on same t ill then elephone En counter - Varsha Gee CMA - 03/02/2020 10:52 AM PDTCalled patient regarding inbox me ssage. She stated gabapentin is not working for her. She wants to know if she can up dose or what she can do? Telephone Encounter - Camille De La Paz MD - 02/27/2020 12:06 PM PDTYes, stay on medication s discussed and prescribed by me unless any side effects or other concerns. Electronically s igned by Camille De La Paz MD at 02/27/2020 12:06 PM PDTTelephone Encounter - Ana Gee CMA - 02/24/2020 10:36 AM PDTCalled patient regarding inbox message. Patient stated un derstanding. She did want me to clarify with Brain Tobias if she is to stay on the same dir ections of use as she is currently on the gabapentin considered by provider. Scheduled appt/ virtual visit. She is also considering botox., informed her I would route message to Ra adebayo Tobias and get back to her with any new feedback. She stated understanding. elephone Encounter - Camille De La Paz MD - 02/15/2020 12:03 PM PDTPer my clinic note "Discussed about head preventative medications You are already [...] about side eff ects and expectations as well" Patient is less likely to find improvement with other oral medications for reasons listed a debby. She may need to consider Botox injections. Consider virtual visit Electronically delfina d by Camille De La Paz MD at 02/15/2020 12:04 PM PDTTelephone Encounter - Varsha Gee CMA - 02/15/2020 10:43 AM PDTCalled patient regarding inbox message. She stated she has be en having Dizziness, black out feelings. She stated she had testing for COVID-19 on Thursday a nd will be at least 7 days or so. She stated she wanted me to ask Dr. De La Paz if she can g et different medication as Gabapentin 100 mg is not working. She is currently taking 2 times by mouth 3 times daily. Informed her I would route message to provider and call her back wi th feedback. elep alejo Encounter - Melissa Wise - 02/13/2020 3:04 PM PDTMigloria, is calling again for Other (Medication) and would like a call back. Additional Call Details: Calling again, please call the home number listed eleRebecca Sherman - 02/13/2020 8:16 AM PDTMigloria, is calling regarding Other (Medication) and would like a call back. Additional Call Details: Stated the new medication given to her for her migraines is not wo rking. Is have dizziness and other symptoms. Please call Elzbieta back at [phone] If this is a symptom based call, was patient offered triage? Not Applicable If this is a symptom based call and you were unable to immediately transfer the call to a romeo ellis oracle technical architect was caller made aware that if at [...] R[address]HEY | | | | | | [place] [address] | | | | | | [phone] | | | | | | | | +--------+ + + + + | 04/18/ | Procedure | Neurology | Camille De La Paz, | | 2019 | visit | | [address] | | | | | | [address] | | | | | | [place] [address] | | | | | | [phone] | | | | | | | | +--------+ + + + + documented as of this encounter Visit Diagnoses Not on filedocumented in this encounter
--- OUTSIDE RECORDS SUMMARY | ~2020-03-26 | XMS | Encounter Summary ---
Demographics + + + | Address | [address] | | | [place] [address] | + + + | Home Phone [...] [place], [place] | | | | | [address] | | + + + + + | Ellie Vang | ECON | Unknown | | + + + + + Care Team Providers + +------+ + | Care Washer Blanket Name | Role | Phone | + +------+ + | Fadi Goodrich DO | PCP | | + +------+ + Reason for Visit + +--------+ + | Reason | Onset | Comments | | | Date | | + +--------+ + | Update On Condition | 03/11/ | | | | 2018 | | + +--------+ + Encounter Details +--------+ + + + + | Date | Type | Department | Care Team | Description | +--------+ + + + + | 03/11/ | Telephone | Digestive Health | Ronna Clarke, | Update On Condition | | 2018 | | Center at [facility] [address] | [facility] [address] | | | | | [address] [place] | [place], [place] | | | | | for Health and | [address] | | | | | [facility] 2 | [phone] | | | | | [place], [place] | | | | | | [address] | | | | | | [phone] | | | +--------+ + + + [...] Telephone Encounter - Melissa Garay RN - 03/11/2018 12:16 PM PDTSpoke with Elzbieta and s he says that the area is the same and "nothing has changed." Notified her that we do not hav e the wound culture results yet and when we do, she will be notified. She states understandi ng and agreement with plan. 12:1 9 PM PDTTelephone Encounter - Bhavya [place] - 03/11/2018 11:54 AM PDTPt saw MR TEACHER Vince yes terday, she was told to call and speak to RN to update on her blood pocket she had under her incision. Pt states that the blood pocket has not changed since yesterday, still the same, but she's ok. Pt seeks a call back 11: 56 AM PDTdocumented in this encounter Plan of Treatment +--------+ + + + + | Date | Type | Specialty | Care Team | Description | +--------+ + + + + | 04/04/ | Telephone-S | Surgery | Orquidea Cristobal, | | | 2020 | sherrill | | OUTSIDE LABORER [address] | | | | | | [place], [place] | | | | | | [address] | | | | | | [phone] | | | | | | | | +--------+ + + + + documented as of this encounter Visit Diagnoses Not on filedocumented in this encounter
--- OUTSIDE RECORDS SUMMARY | ~2020-03-26 | XMS | Encounter Summary ---
[...] + | Katalina Padilla | ECON | [address] | | | | | [place], [place] | | | | | [address] | | + + + + + | Ellie Vang | ECON | Unknown | | + + + + + Care Team Providers + +------+ + | Care Blasting Gang Miner Name | Role | Phone | + +------+ + | Fadi Goodrich DO | PCP | | + +------+ + Encounter Details +--------+ + + + + | Date | Type | Department | Care Team | Description | +--------+ + + + + | 07/18/ | Abstract | Digestive Health | Shereen Georges, | | | 2012 | | Center at [facility] [address] | ACNP [address] | | | | | [address] | [place], [place] | | | | | for Health and | [address] | | | | | [facility] 2 | | | | | | [place], [place] | | | | | | [address] | | | | | | | [...] | | 2019 | sherrill | | POKER MANAGER [address] | | | | | | [place], [place] | | | | | | [address] | | | | | | [phone] | | | | | | | | +--------+ + + + + documented as of this encounter Visit Diagnoses Not on filedocumented in this encounter"
--- OUTSIDE RECORDS SUMMARY | ~2020-03-26 | XMS | Encounter Summary ---
Demographics + + + | Address | [address] | | | [place] [address] | + + + | Home Phone [...] [place], [place] | | | | | [address] | | + + + + + | Ellie Vang | ECON | Unknown | | + + + + + Care Team Providers + +------+ + | Care Claims Service Representative Name | Role | Phone | + +------+ + | Fadi Goodrich DO | PCP | | + +------+ + Encounter Details +--------+------+ + + + | Date | Type | Department | Care Team | Description | +--------+------+ + + + | 11/28/ | Lab | Laboratory at [facility] | | Essential | | 2017 | | [address] | | hypertension; Right | | | | [facility] | | heart failure (HCC); | | | | and Healing, | | Type 2 diabetes | | | | Building [address] | | mellitus without | | | | [place], [place] | | complication, with | | | | [address] | | long-term current | | | | [phone] | | use of insulin (HCC) | [...] | 2020 | sherrill | | [employer] [address] | | | | | | [place], [place] | | | | | | [address] | | | | | | [phone] | | | | | | | [...] (NA,K,CL,CO2,BUN,CRE | | PDT | heart failure ([facility]) | results section. | | AT,GLUC,CA,AST,ALT,B | | | Type 2 diabetes | | | MARGIE TOTAL,ALK | | | mellitus without | | | PHOS,ALB,PROT TOTAL) | | | complication, with | | | | | | long-term current | | | | | | use of insulin ([facility]) | | + +--------+ + + + | TSH | Routin | 11/28/2016 | Essential | Results for this | | | e | 10:53 AM | hypertension Right | procedure are in the | | | | PDT | heart failure ([facility]) | results section. | | | | | Type 2 diabetes | | | | | | mellitus without | | | | | | complication, with | | | | | | long-term current | | | | | | use of insulin ([facility]) | | + +--------+ + + + | HEMOGLOBIN A1C, | Routin | 11/28/2016 | Essential | Results for this | | BLOOD | e | 10:53 AM | hypertension Right | procedure are in the | | | | PDT | heart failure ([facility]) | results section. | | | | | Type 2 diabetes | | | | | | mellitus without | | | | | | complication, with | | | | | | long-term current | | | | | | use of insulin ([facility]) | | + +--------+ + [...] [facility] | [address] | [place] [address] | | | LYDIA RANGEL | CLARENCE [...] [facility] | [address] [facility] | [place], [place] | | | SERVICES, LIPID | [facility] | [address] | | + + + + + HEMOGLOBIN A1C, BLOOD (11/28/2016 10:53 AM PDT) + + + + + + | Component | Value | Ref Range | Performed | Pathologist | | | | | At | Signature | + + + + + + | HEMOGLOBIN | 6.8 (H)Comment: Hgb A1C | <5.7 % | [facility] | | | A1C [...] glycated albumin should be considered for monitoring usp | LABORATORY | | glycemic control in [...] | + + + + + | [facility] | [address] | [place] [address] | | | SERVICES, SPECIAL | PARK [...] [facility]ERT[facility] | [address] | [place] [address] | | | SERVICES, CORE | PARK [...]
--- OUTSIDE RECORDS SUMMARY | ~2020-03-26 | XMS | Encounter Summary ---
Demographics + + + | Address | [address] | | | [place] [address] | + + + | Home Phone [...] + + + | Author | [facility] | | | and Jeffana | + + + | Organization | [facility] | | | [...] Team Providers + +------+ + | Care Foxing Painter Name | Role | Phone | + +------+ + | Jorje Hill | PCP | | + +------+ + Encounter Details +--------+ + + + + | Date | Type | Department | Care Team | Description | +--------+ + + + + | 01/05/ | Orders Only | [facility] | Augustine Fu MD | | | 2020 | | NEPHROLOGY [place] | [address] [place] | | | | | [address] [place] | [address] [place], [place] | | | | | [address] [place], [place] | [address] | | | | | [address] | | | | | | [phone] | | | +--------+ + + + [...] | | | | | [place] [address] | | | | | | [phone] | | | | | | | | +--------+ + + + + | 04/18/ | Procedure | Neurology | Camille De La Paz, | | | 2019 | visit | | [address] | | | | | | [address] | | | | | | [place] [address] | | | | | | [phone] | | | | | | | | +--------+ + + + + documented as of this encounter Visit Diagnoses Not on filedocumented in this encounter"
--- OUTSIDE RECORDS SUMMARY | ~2020-03-26 | XMS | Encounter Summary ---
Demographics + + + | Address | [address] | | | [place] [address] | + + + | Home Phone [...] [place], [place] | | | | | [address] | | + + + + + | Elile Vang | ECON | Unknown | | + + + + + Care Team Providers + +------+ + | Care Dermatologist Managing Partner Name | Role | Phone | [...] | | | | | | | [address] | | | | | | | [address] | | | | | | | [place], | | | | | | | [place] | | | | | | | [address] | | | | | | | Phone: | | | | | | | [phone] | | | | | | | Fax: | | | | | | | [phone] | +--------+--------+ + + + + Encounter Details +--------+---------+ + + + | Date | Type | Department | Care Team | Description | +--------+---------+ + + + | 04/14/ | Office | Digestive Health | Hernandez Brian, | Morbid obesity (HCC) | | 2013 | Visit | Center at [facility] [address] | [address] | (Primary Dx); Type | | | | [address] | [address] | 2 diabetes mellitus | | | | for [facility] and | [place], [place] | ([facility]); AMARA | | | | [place] [address] | [address] | (obstructive sleep | | | | [facility] [place] | [phone] | apnea); [place] | | | | [address] | | | | | | [phone] | | | +--------+---------+ + + + [...] this year, she was tr ansferred from [place] for surgical evaluation of possible incarcerated ventral [...] with close followup by her PCP in [place] in the interim. Dr. Guillory in [place] has been following her since January, with CT scan obtained at [facility] in [place] 02/09/2013 (images in [facility]), demonstrating "recurrent hypogastric [...] to follow up with her providers at [facility] to include a visi t to [...] r weight loss efforts. She saw a piano teacher today and Melida came in to discuss [...] | | 2020 | cheduled | | PHOTORADIO OPERATOR [address] | | | | | | [place], [place] | | | | | | [address] | | | | | | [phone] | | | | | | | [...]
--- OUTSIDE RECORDS SUMMARY | ~2020-03-26 | XMS | Encounter Summary ---
Demographics + + + | Address | [address] | | | [place] [address] | + + + | Home Phone [...] [place], [place] | | | | | [address] | | + + + + + | Ellie Vang | ECON | Unknown | | + + + + + Care Team Providers + +------+ + | Care Ground Wirer Name | Role | Phone | + +------+ + | Fadi Goodrich DO | PCP | | + +------+ + Encounter Details +--------+ + + + + | Date | Type | Department | Care Team | Description | +--------+ + + + + | 06/17/ | Abstract | Digestive Health | Shereen Georges, | | | 2012 | | Center at [facility] [address] | ACNP [address] | | | | [address] | [place], [place] | | | | | for Health and | [address] | | | | | [facility], [facility] 2 | | | | | | [place], [place] | | | | | | [address] | | | | | | | [...] | | 2019 | sherrill | | INDUSTRIAL SAFETY AND HEALTH TECHNICIAN [address] | | | | | | [place], [place] | | | | | | [address] | | | | | | [phone] | | | | | | | | +--------+ + + + + documented as of this encounter Visit Diagnoses Not on filedocumented in this encounter"
--- OUTSIDE RECORDS SUMMARY | ~2020-03-26 | XMS | Encounter Summary ---
Demographics + + + | Address | [address] | | | [place] [address] | + + + | Home Phone [...] [place], [place] | | | | | [address] | | + + + + + | Ellie Vang | ECON | Unknown | | + + + + + Care Team Providers + +------+ + | Care Garbage Truck Driver Name | Role | Phone | + +------+ + | Fadi Goodrich DO | PCP | | + +------+ + Reason for Visit + +--------+ + | Reason | Onset | Comments | | | Date | | + +--------+ + | Bariatric Nutrition | 02/09/ | | | | 2014 | | + +--------+ + Encounter Details +--------+ + + + + | Date | Type | Department | Care Team | Description | +--------+ + + + + | 02/09/ | Telephone | Digestive Health | Yuli [address]s [address], | Bariatric Nutrition | | 2014 | | Center at [facility] [address] | [facility], [address] | | | | | [facility] | [address] | | | | | [facility] and | [place], [place] | | | | | [place] [address] | [address] | | | | | [place], [place] | [phone] | | | | | [address] | | | | | | [phone] | | | +--------+ + + + [...] Telephone Encounter - Yuli Childs RD, APOLINAR, LD - 02/09/2015 3:24 PM PDTPC to patient t o check progress with pre-surgery weight loss. Pt states things are going good and that she is feeling ok. She reports some low blood sugar but not experiencing any of the symptoms (n/ v) that she had been previously. Pt reports no difficulty in following the diet. She also re ports participating in physical therapy & is in the pool exercising 2x/week. Encouraged her to contact me if I can be of any assistance. Yuli Childs RD, [facility], LD Pager# [phone] documented i n this encounter Plan of Treatment +--------+ + + + + | Date | Type | Specialty | Care Team | Description | +--------+ + + + + | 04/04/ | Telephone-S | Surgery | Orquidea Cristobal, | | | 2019 | cheduled | | WASTE COLLECTOR [address] | | | | | | [place], [place] | | | | | | [address] | | | | | | [phone] | | | | | | | | +--------+ + + + + documented as of this encounter Visit Diagnoses Not on filedocumented in this encounter"
--- OUTSIDE RECORDS SUMMARY | ~2020-03-26 | XMS | Encounter Summary ---
Demographics + + + | Address | [address] | | | [place] [address] | + + + | Home Phone [...] + | Katalina Padilla | ECON | [address] | | | | | [place], [place] | | | | | [address] | | + + + + + | Ellie Vang | ECON | Unknown | | + + + + + Care Team Providers + +------+ + | Care Aquarium Tank Attendant Name | Role | Phone | + +------+ + | Fadi Goodrich DO | PCP | | + +------+ + Encounter Details +--------+ + + + + | Date | Type | Department | Care Team | Description | +--------+ + + + + | 03/04/ | Telephone | Digestive Health | Ion Pandey, | | | 2018 | | Center at [facility] [address] | MD [address] | | | | | [address] | [place], [place] | | | | | [facility] Health and | [address] | | | | | Healing, [facility] 2 | | | | | | [place], [place] | | | | | | [address] | | | | | | | [...] Telephone Encounter - Melissa Garay RN - 03/04/2018 10:43 AM PDTCalled and spoke with Elzbieta. Fluid intake: 34 oz so far today Protein intake: protein shakes Activity: "slow but sure" Pain Scale Ratin/10 Location: left shoulder pain started this morning/abdomen Current pain medications: tylenol How much? 3 oxycodone every 4 hours, tylenol regularly Is the pain tolerable? yes Is the pain improving with time? same Any nausea or vomiting? Yes, nausea after breakfast this morning. Resolved without medicati on Have they had a BM? No Any fever or chills? No How are the incision sites? "look myrtle' Week 1 follow-up appointment confirmed? Yes Instructions given: Continue miralax and increase if needed to 3 times per day and call if no BM or discomfort occurs. Walk, deep breaths, gas-x to see if these help relieve shoulder pain. Instructed the patient to call us any time with questions, concerns or worsening symptoms. For severe pain/symptoms, instructed the patient to call us and/or go to local urgent care or ED. documented in this encounter Plan of Treatment +--------+ + + + + | Date | Type | Specialty | Care Team | Description | +--------+ + + + + | 04/04/ | Telephone-S | Surgery | Orquidea Cristobal, | | | 2019 | cheduled | | BATCH AND FURNACE OPERATOR [address] | | | | | | [place], [place] | | | | | | [address] | | | | | | [phone] | | | | | | | | +--------+ + + + + documented as of this encounter Visit Diagnoses Not on filedocumented in this encounter
--- OUTSIDE RECORDS SUMMARY | ~2020-03-26 | XMS | Encounter Summary ---
Demographics + + + | Address | [address] | | | [place] [address] | + + + | Home Phone [...] [place], [place] | | | | | [address] | | + + + + + | Ellie Vang | ECON | Unknown | | + + + + + Care Team Providers + +------+ + | Care Director Water And Waste Services Name | Role | Phone | [...] | 2016 | on | Center at [facility] [address] | | | | | [address] [facility] | | | | | | for Health and | | | | | | Healing, [facility] 2 | | | | | | [place], [place] | | | | | | [address] | | | | | | [phone] | | | +--------+ + + + [...] | | 2020 | sherrill | | DEWER [address] | | | | | | [place], [place] | | | | | | [address] | | | | | | [phone] | | | | | | | | +--------+ + + + + documented as of this encounter Visit Diagnoses Not on filedocumented in this encounter"
--- OUTSIDE RECORDS SUMMARY | ~2020-03-26 | XMS | Encounter Summary ---
Demographics + + + | Address | [address] | | | [place] [address] | + + + | Home Phone [...] [place], [place] | | | | | [address] | | + + + + + | Ellie Vang | ECON | Unknown | | + + + + + Care Team Providers + +------+ + | Care Butcher Scullion Name | Role | Phone | [...] | | [address] | [place], [place] | | | | | [facility] | [address] | | | | | and [place], | [phone] | | | | | [address] | | | | | | [facility] [place] | | | | | | [address] | | | | | | [phone] | | | +--------+ + + + [...] | | 2020 | cheduhipolito | | HEALTH CARE AIDE [address] | | | | | | [place], [place] | | | | | | [address] | | | | | | [phone] | | | | | | | | +--------+ + + + + documented as of this encounter Visit Diagnoses Not on filedocumented in this encounter"
--- OUTSIDE RECORDS SUMMARY | ~2020-03-26 | XMS | Encounter Summary ---
Demographics + + + | Address | [address] | | | [place] [address] | + + + | Home Phone [...] [place], [place] | | | | | [address] | | + + + + + | Ellie Vang | ECON | Unknown | | + + + + + Care Team Providers + +------+ + | Care Parts Representative Name | Role | Phone | [...] | | 2014 | | Preventive at [facility] | MD [address] | | | | | [address] | [place], [place] | | | | | [facility] | [address] | | | | | and [place], | [phone] | | | | | [facility] 1 | | | | | | [place], [place] | | | | | | [address] | | | | | | [phone] | | | +--------+ + + + [...] Tim - 04/26/2015 12:29 PM [facility] patient Medication phentermine 37.5 [...] | | 2019 | sherrill | | WINDOW CLEANER [address] | | | | | | [place], [place] | | | | | | [address] | | | | | | [phone] | | | | | | | | +--------+ + + + + documented as of this encounter Visit Diagnoses Not on filedocumented in this encounter"
--- OUTSIDE RECORDS SUMMARY | ~2020-03-26 | XMS | Encounter Summary ---
[...] [place], [place] | | | | | [address] | | + + + + + | Ellie Vang | ECON | Unknown | | + + + + + Care Team Providers + +------+ + | Care Senior Financial Reporting Accountant Name | Role | Phone | + [...] | | | | | essential | [address] | [address] | | | | | hypertension | [address], | Ave | | | | | Type II or | [address] | [place], [place] | | | | | unspecified | [place], [place] | [address] | | | | | type | [address] | Phone: | | | | | diabetes | Phone: | [phone] | | | | | mellitus | [phone] | Fax: | | | | | without | Fax: | [phone] | | | | | mention of | [phone] | | | | | | complication [...] [address] | [place], [place] | (Primary Dx); | | | | [facility] | [address] | Migraine headache | | | | and Healing, | [phone] | | | | | Building [address] | | | | | | [place], [place] | | | | | | [address] | | | | | | [phone] | | | +--------+---------+ + + + [...] she is hypothyroid and put her on [place] Thyroid hormone replacement therapy. Her heart rate [...] | | 2019 | sherrill | | SHEET METAL INSULATOR [address] | | | | | | [place], [place] | | | | | | [address] | | | | | | [phone] | | | | | | | [...] | + + + + + | [facility] | [address] | [place] [address] | | | SERVICES, SPECIAL | PARK [...]
--- OUTSIDE RECORDS SUMMARY | ~2020-03-26 | XMS | Encounter Summary ---
Demographics + + + | Address | [address] | | | [place] [address] | + + + | Home Phone [...] [place], [place] | | | | | [address] | | + + + + + | Ellie Vang | ECON | Unknown | | + + + + + Care Team Providers + +------+ + | Care Iron Miner Blasting Name | Role | Phone [...] | 2018 | Visit | Preventive at [facility] | [address] | mellitus without | | | | [address] | [place], [place] | complication, with | | | | [facility] | [address] | long-term current | | | | and Healing, | [phone] | use of insulin (HCC) | | | | Building [address] | | (Primary Dx); | | | | [place], [place] | | Chronic right-sided | | | | [address] | | heart failure (HCC) | | | | [phone] | | | +--------+---------+ + + + [...] management of her heart failure by her Global Risk Management Director 3) Check A1c, lipids 4) Await bariatric surgery in February 2018 5) Continue phentermine 37.5 mg daily 6) Continue wound care, non-pressure ambulation of right foot wound 7) Follow-up 4-6 months In the interim, the patient underwent bariatric surgery and was [facility]. Today, the patient reports [...] 06/23 - She is working with the crystal slicer in her office - She is taking [...] tongue once daily., Disp: , Rfl: CALCIUM CRB&THA-X4-VID05-GENIS ORAL, Take 2 tablets by mouth two [...] 3.19 11/28/2016 Lab Results Component Value Date [id number] 88.6 05/27/2018 Lab Results Component Value Date [...] weight of 320lbs. Plan to work with crystal slicer from bariatric surgery, identify etio logy of [...] is currently being managed well by her Global Risk Management Director with diuretics and mainte nance of [...] Gissell Clements MD Fellow, Cardiovascular Medicine Pager [phone] signed by Gissell Clements MD at 06/04/2018 [...] | | 2019 | chesteve | | TAR POT WORKER [address] | | | | | | [place], [place] | | | | | | [address] | | | | | | [phone] | | | | | | | [...]
--- OUTSIDE RECORDS SUMMARY | ~2020-03-26 | XMS | Encounter Summary ---
Demographics + + + | Address | [address] | | | [place] [address] | + + + | Home Phone [...] [place], [place] | | | | | [address] | | + + + + + | Ellie Vang | ECON | Unknown | | + + + + + Care Team Providers + +------+ + | Care Clinical Dermatologist Name | Role | Phone | + [...] ENDOSCOPY | | 2017 | | [facility] | [address] | | | | | Rd [facility] | [place], [place] | | | | | Hospital Admitting | [address] | | | | | Desk Located on the | [phone] | | | | | 9th floor | | | | | | [place], [place] | | | | | | [address] | | | +--------+---------+ + + + [...] Discharge Instructions Instructions Keerthi Bill, KELSIE [facility] Inst[facility] after [facility]GD (Upper Endo scopy) [...] hours or on weekends and holiday Hospital Sales Service Supervisor toll free [phone]. [phone] and have the GI doctor veneer production machine operator paged. The provider who performed your [...] mg by mouth | | 0 | // | | | oral tablet | once daily at | | | 17 | | | | bedtime. | | | | | + + + +---------+ + + | CALCIUM | Take 2 tablets by | | 0 | | | | CRB&EBG-D0-AMC70-GEN | mouth two times | | | [...] 2:35 PM PST PRE PROCEDURE NOTE: MR# [id number] Subjective: Elzbieta Cristina is a 43 y.o. [...] | | 2019 | cheduled | | ESE TEACHER [address] | | | | | | [place], [place] | | | | | | [address] | | | | | | [phone] | | | | | | | [...] -----+ | MRN: | [facility] | | [id number] Date: 06/23/2018Patient Name: Elzbieta Curtis #: | ENDOSCOP Y | | [id number] of : 1975CSN: [id number] Type: | | | AmbulatoryRoom: SORProcedure: Upper GI | | | endoscopyIndications: Nausea with vomiting, Status post | | | Zetk-sq-WDnukrkwic: KALEB WILCOX MD (Doctor), JOSE | | | [place]IMA, Labor Conciliator | | | (Labor Conciliator)Referring MD: DANIELLE GARCÍAPRequestdonya | | | Provider: [...] | | | The Olympus GIF-[id number] Gastroscope #[id number] was | | | introduced through the [...] endoscope without resistance. The | | | ccjpe-ts-iqynnyv limb was characterized by healthy appearing | [...] Initiated On: | | | 06/23/2018 3:58 [facility] Letter to: FADI GOODRICH, DO | | [...] |CC Letter to: | | | FADI GOODRICH, DO | | + +--------- -----+ + +---------+ + + | Performing | Address | City/State/[facility] | Phone [...] AMES | [address] | [place], [place] | | | [place] [facility] | [address] | [address] | | | TESTS | | | [...] Thu06/23/18 at 1532, | | | Until [facility] 06/24/18 at 0027, | | | hypopnea | | + +---+ | | | + +---+ | ondansetron (ZOFRAN) injection | | | 4 mg 4 mg, intravenous, | | | POSTPROCEDURE PRN, 1 dose, | | | Starting [facility] 06/23/18 at 1532, | | | Until [facility] 06/24/18 at 0027, | | | nausea/vomiting [...] | | | PRN, 1 dose, Starting [facility] | | | | | | | 06/23/18 at 1532, Until [facility] | | | | | [...]
--- OUTSIDE RECORDS SUMMARY | ~2020-03-26 | XMS | Encounter Summary ---
Demographics + + + | Address | [address] | | | [place] [address] | + + + | Home Phone [...] + | aKtalina Padilla | ECON | [address] | | | | | [place], [place] | | | | | [address] | | + + + + + | Ellie Vang | ECON | Unknown | | + + + + + Care Team Providers + +------+ + | Care Automotive Sales Representative Name | Role | Phone [...] at [facility] [address] [facility] | obesity ([facility]), BMI | | | | [facility] | [facility] [address] | 88 (Primary Dx); | | | | for [employer] and | [place], [place] | Type 2 diabetes | | | | Healing, [facility] 2 | [address] | mellitus without | | | | [facility] [place] | [phone] | complication, with | | | | [address] | | long-term current | | | | [phone] | | use of insulin | | | | | | ([facility]); S/P gastric | | | | [...] Follow-Up Patient referred [place]: [place] [address] Documented time of visit: 1:30 to 2:00 (30 minutes iman-yx-ayxa with patient) Surgery: Gastric Bypass Date of [...] vagina Allergic rhinitis Anemia Anxiety Bipolar disorder ([facility]) Chronic wound infection of abdomen from 2010 Cough Depression Diverticulitis of colon Dizziness Glaucoma Heart burn Hemorrhoids Hernia of abdominal wall Incisional hernia, incarcerated 2012 Insomnia Irregular periods Kidney stone Leaking of urine Leg sore Lymphedema Morbid obesity with body mass index of 70 and over in adult ([facility]) Myalgia and myositis Nausea Neck pain Numbness Osteoarthritis of knee Palpitations Pneumonia Shortness of breath Staphylococcal infection Stroke ([facility]) TIA (transient ischemic attack) due to [...] multivitamin & mineral (with iron) supplement, 2/day -7105-9495 mg calcium citrate with vitamin D/day (take [...] in [address],[place] Pager# [phone] Phone: [phone] documented in this en counter Plan of Treatment +--------+ + + + + | Date | Type | Specialty | Care Team | Description | +--------+ + + + + | 04/04/ | Telephone-S | Surgery | Orquidea Cristobal, | | | 2020 | sherrill | | WATER PUMP SERVICER [address] | | | | | | [place], [place] | | | | | | [address] | | | | | | [phone] | | | | | | | | +--------+ + + + + documented as of this encounter Procedures + +--------+ + + + | Procedure Name | Priori | Date/Time | Associated Diagnosis | Comments | | | ty | | | | + +--------+ + + + | IA MNT RE-ASSESSMNT | Routin | 03/10/2018 | [...]
--- OUTSIDE RECORDS SUMMARY | ~2020-03-26 | XMS | Encounter Summary ---
Demographics + + + | Address | [address] | | | [place] [address] | + + + | Home Phone [...] [place], [place] | | | | | [address] | | + + + + + | Ellie Vang | ECON | Unknown | | + + + + + Care Team Providers + +------+ + | Care Underground Repairer Name | Role | Phone | + +------+ + | Jorje Hill MD | PCP | | + +------+ + Encounter Details +--------+ + + + + | Date | Type | Department | Care Team | Description | +--------+ + + + + | 03/01/ | Procedure | Diagnostic Imaging | | | | 2019 | Pass | Services at [facility] | | | | | | [address] | | | | | | [place] | | | | | | [address] | | | | | | [place], [place] | | | | | | [address] | | | | | | [phone] | | | +--------+ + + + [...] | | 2019 | cheduhipolito | | SOFTWARE TEST TECHNICIAN [address] | | | | | | [facility] | | | | | | [address] | | | | | | [phone] | | | | | | | | +--------+ + + + + documented as of this encounter Visit Diagnoses Not on filedocumented in this encounter"
--- OUTSIDE RECORDS SUMMARY | ~2020-03-26 | XMS | Encounter Summary ---
Demographics + + + | Address | [address] | | | [place] [address] | + + + | Home Phone [...] [place], [place] | | | | | [address] | | + + + + + | Ellie Vang | ECON | Unknown | | + + + + + Care Team Providers + +------+ + | Care Home Builder Name | Role | Phone | + +------+ + | Jorje Hill MD | PCP | | + +------+ + Encounter Details +--------+ + + + + | Date | Type | Department | Care Team | Description | +--------+ + + + + | 03/10/ | Pharmacy | [facility] | | | | 2018 | Visit | [facility] | | | | | | [address] | | | | | | Mailcode: Center | | | | | | [facility] and | | | | | | [facility] | | | | | | [place], [place] | | | | | | [address] | | | | | | [phone] | | | +--------+ + + + [...] | | 2020 | cheduled | | TRADING FLOOR OPERATOR [address] | | | | | | [place], [place] | | | | | | [address] | | | | | | [phone] | | | | | | | | +--------+ + + + + documented as of this encounter Visit Diagnoses Not on filedocumented in this encounter"
--- OUTSIDE RECORDS SUMMARY | ~2020-03-26 | XMS | Encounter Summary ---
Demographics + + + | Address | [address] | | | [place] [address] | + + + | Home Phone [...] [place], [place] | | | | | [address] | | + + + + + | Ellie Vang | ECON | Unknown | | + + + + + Care Team Providers + +------+ + | Care Leave Coordinator Name | Role | Phone | + +------+ + | Kenyatta Cardenas MD | PCP | | + +------+ + Reason for Visit +--------+--------+ + | Reason | Onset | Comments | | | Date | | +--------+--------+ + | Other | 02/15/ | pt need a re-test? | | | 2019 | | +--------+--------+ + Encounter Details +--------+ + + + + | Date | Type | Department | Care Team | Description | +--------+ + + + + | 02/15/ | Telephone | Cardiology | Randell Franks, | Other (pt need a | | 2019 | | Preventive at [facility] | [address] | re-test? ) | | | | [address] | [place], [place] | | | | | [facility] | [address] | | | | | and [place], | [phone] | | | | | Building [address] | | | | | | [place], [place] | | | | | | [address] | | | | | | [phone] | | | +--------+ + + + [...] Telephone Encounter - Anisa Massey RN - 02/18/2019 10:[address] per verbal order with read-back from Dr Franks. Per provider instructions patient is to hold the bioti n supplement for at least one week prior to having the labs drawn. Patient informed of the n ew orders by telephone and acknowledged the instructions. Orders faxed to [facility] in [facility] for collection local to the patient. Electronically signed by Anisa Massey RN at 11:05 AM PDTTelephone Encounter - Ellie Dumont - 02/17/2019 3:20 PM PDTPATIENT QUES TION/CONCERN Person calling: Pt What is the question/concern: Pt is calling to follow up on previous call regarding labs. P t is waiting on a call back. I let pt know Dr. Franks is in clinic on Thursday. Pt is ok wait ing until then. Okay to send MyChart Response? N/a If page indicated, person paged: n/a ~~~ ROUTE TO APPROPRIATE CAR NURSE POOL ~~~ ~~~ IF NURSE PAGED, ROUTE HIGH PRIORITY ~~~ ~~~For patients who were only seen in the hospital and do not yet have an appointment in [facility] clinic, route to the dynamometer tester engine of the discharging range scientist. See discharge summary for i nformation~~~ elephone Encounter - Anisa Massey RN - 02/15/2019 2:40 PM PDTSpoke with patient regarding her concerns. It appears she got a letter from the lab where some tests were done with a notice saying they might be jorge ccurate if she is taking high dose Biotin supplements. She does report she is taking a suppl ement with 3000 mcg of Biotin daily. Will follow up with provider to help determine if [facility] lab work is required. Telephone Encounter - Evy Pitts - 02/15/2019 11:40 AM PDTPATIENT QUESTION/CONCERN Person calling: Pt What is the question/concern: Pt reports that she was taking a test and that it was inaccur ate due to her taking biotin. She is wondering if she needs to redo the test? Thank you documented in this encounter Plan of Treatment +--------+ + + + + | Date | Type | Specialty | Care Team | Description | +--------+ + + + + | 04/04/ | Telephone-S | Surgery | Orquidea Cristobal, | | | 2019 | sherrill | | EXPERIMENTAL MECHANIC OUTBOARD MOTORS [address] | | | | | | [place], [place] | | | | | | [address] | | | | | | [phone] | | | | | | | | +--------+ + + + + documented as of this encounter Visit Diagnoses + + | Diagnosis | + + | Hypothyroidism, unspecified type - Primary | + + documented in this encounter"
--- OUTSIDE RECORDS SUMMARY | ~2020-03-26 | XMS | Encounter Summary ---
Demographics + + + | Address | [address] | | | [place] [address] | + + + | Home Phone [...] [place], [place] | | | | | [address] | | + + + + + | Ellie Vang | ECON | Unknown | | + + + + + Care Team Providers + +------+ + | Care Orthophoto Tech/Draftsman Name | Role | Phone | + [...] | | 2019 | sherrill | | TANNING SOLUTION MAKER [address] | | | | | | [place] | | | | | | [address] | | | | | | [phone] | | | | | | | | +--------+ + + + + documented as of this encounter Visit Diagnoses Not on filedocumented in this encounter"
--- OUTSIDE RECORDS SUMMARY | ~2020-03-26 | XMS | Encounter Summary ---
Demographics + + + | Address | [address] | | | [place] [address] | + + + | Home Phone [...] [place], [place] | | | | | [address] | | + + + + + | Ellie Vang | ECON | Unknown | | + + + + + Care Team Providers + +------+ + | Care Associate Faculty Name | Role | Phone | [...] 2019 | | Center at [facility] [address] | | Review | | | | [address] [facility] | | | | | | for Health and | | | | | | [facility] [place] [address] | | | | | | [place], [place] | | | | | | [address] | | | | | | [phone] | | | +--------+ + + + [...] | | 2019 | sherrill | | CREATIVE PRODUCER [address] | | | | | | [place], [place] | | | | | | [address] | | | | | | [phone] | | | | | | | | +--------+ + + + + documented as of this encounter Visit Diagnoses Not on filedocumented in this encounter"
--- OUTSIDE RECORDS SUMMARY | ~2020-03-26 | XMS | Clinical Summary ---
Demographics + + + | Address | [address] | | | [place] [address] | + + + | Home Phone | | + + + | Preferred Language | Unknown | + + + | Marital Status | | + + + | Zoroastrian Affiliation | Unknown | + + + | Race | White | + + + | Ethnic Group | Not or | + + + Author + + + | Author | [facility] | | | and [place] | + + + | Organization | [facility] | | | [...] Providers + +------+ + | Care Manager English Name | Role | Phone | + [...] 0 | | | Activ | | Jliywbd-Mfbqufhqb-Zl | mouth 2 times daily. | | [...] | + + + +---------+------+------+-------+ | thyroid (WELDING INSPECTOR | WELDING INSPECTOR Thyroid 30 mg | | 0 | [...] 0 | | | Activ | | (MAXALT-PRESCHOOL TEACHER ASSISTANT) 5 mg | as needed for | [...] qd x | | 30 October 2015 [facility] Assessment & Plan: Hgb appears [...] obesityPickwickian syndrome | | Recent admission to [facility] for [facility] | | weight gain- DC on diuresis on 03/06/2016- she feel improvedShe | | was on Metolazone and Torsemide prior to hospitalization- both | | have better bioavailability than lasix in gut edema but she | | retained 100lbs - how ever she is currently on only Torsemide | | 100mg Q12hrs started in [place] and her weight been stable | | [...] + + + | Overview: Problem List Brake Repairer Utility | + + + + + [...] + + + + | [facility]: [facility]: Patient with | | [...] responded well to diuresis at | | [facility] (lost 60lb, down to 410), and then reaccumulated water | | weight on Torsemide and metolazone, which should be less effected | | by gut wall edema than Lasix. She has an appt with nephrology at | | [facility] on 03/17. Weight now 200kg (440lb, [...] Defer Metolazone to her | | outpatient Catalytic Converter Operator Helper or Financial Operations Consultant- Will continue KCL | | supplementation at 60meq QID despite the spironolactone as she | | remains on the low side- Encourage daily weights at home with a | | log; she should contact her PCP, Catalytic Converter Operator Helper or Financial Operations Consultant for | | a 10lb weight gain [...] morbid obesity, she is enrolled in the [facility] bariatric program. | | She [...] inpatient, tolerating well in the | | [facility] [place] arranging for BiPAP upon d/c home to [facility] | | areaOverview: Cannot tolerate CPAP [...] | | | | 44.9 in adult ([facility]); | | | | | | Hyperuricemia | +--------+ + + + + | 01/04/ | Documentati | Nephrology | Bassam | Results (01/04/20) | | 2020 | on | | [facility] | | | | | | Home Health Caregiver | | +--------+ + + + + | 01/01/ | Orders Only | Nephrology | Augustine Fu MD | Hyperparathyroidism | | 2020 | | | | ([facility]) (Primary Dx); | | | | | [...] | | | | | | [place] [address] | | | | | | [phone] | | | | | | | | +--------+ + + + + | 04/18/ | Procedure | Neurology | Camille De La Paz, | | | 2019 | visit | | MD Saumya MOE | | | | | | [address] | | | | | | [place] [address] | | | | | | [phone] | | | | | | | [...] | [employer] | MODA | [id number] | 10/28/19 | [phone] | | [employer] | | MEDICAID HMO | HEALTH | | 19-Pre | 1 | | id | | | MDCD | | sent | | | | | | [place] | | | | | | + +--------+ +--------+ +---------+--------+ | [employer] | MOD[employer] | [id number] | | [phone] | | [employer] | | MEDICAID HMO [...] Person | Self | [birth year] | [address] | | | al/Fam | | 1974 | [phone] | [place], [place] | | | mireya | | | 3 (Home) | [address] | + +--------+ +--------+ + + | Elzbieta Cristina | Person | Self | [birth year] | | [address] | | | al/Fam | | 1974 | [phone] | [place], [place] | | | mireya | | | 3 (Home) | [address] | + +--------+ +--------+ + + | Elzbieta Cristinan | Person | Self | [birth year] | | [address] | | | al/Fam | | 1974 | [phone] | [place], [place] | | | mireya | | | 3 (Home) | [address] | + +--------+ +--------+ + + Advance Directives + + + + + | Type | Date Recorded | Patient | Explanation | | | | Service Support Representative | | + + + + + | Power of | | | | | Retail Customer Service Specialist | | | | + + + + + | Advance | | | | | Directive | | | | + + + + +
--- OUTSIDE RECORDS SUMMARY | ~2020-03-26 | XMS | Encounter Summary ---
Demographics + + + | Address | [address] | | | [place] [address] | + + + | Home Phone [...] Team Providers + +------+ + | Care Factory Maintenance Manager Name | Role | Phone | + +------+ + | Jorje Hill | PCP | | + +------+ + Encounter Details +--------+ + + + + | Date | Type | Department | Care Team | Description | +--------+ + + + + | 01/04/ | Virtual | [facility] | Augustine Fu MD | Hypokalemia (Primary | | 2020 | Office | NEPHROLOGY [place] | [address] [place] | Dx); Bilateral leg | | | Visit | [address] [place] | [address] [place], [place] | edema; Class 3 | | | | [address] [place], [place] | [address] | obesity with | | | | [address] | | 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 She will come back to [facility] on as needed basis. documented in this [...] lives at home with her mother in [place]. She says that she feels 'good ' [...] nightly., Disp: 30 tablet, Rf l: 11 Cjyomqf-Pgcstgmlw-Xdcqqtt D (CITRACAL CALCIUM+D PO), Take 4 tablets [...] tablets qhs, Disp : , Rfl: rizatriptan (MAXALT-SHORT FILLER BUNCH MACHINE OPERATOR) 5 mg disintegrating tablet, Take 5 mg by mouth as needed for Migraine. May repeat in 2 hours if needed, Disp: , Rfl: spironolactone (ALDACTONE) 50 mg tablet, Take 50 mg by mouth Daily., Disp: , Rfl: thyroid (CHANNEL PROCESS PLANT OPERATOR THYROID) 30 mg tablet, CHANNEL PROCESS PLANT OPERATOR Thyroid 30 mg tablet TAKE ONE TABLET [...] unable to assess segmental wa ll motion, [place] visually estimates LVEF >70%. RV grossly NML. [...] office regularly. She will come back to [facility] on as needed basis. I spent 15 [...] through the use of telemedicine. Telemedicine enables [facility] care providers at different locations to [...] [address]Y | | | | | | [place] [address] | | | | | | [phone] | | | | | | | | +--------+ + + + + | 04/18/ | Procedure | Neurology | Camille De La Paz, | | | 2019 | visit | | [address] | | | | | | [address] | | | | | | [place] [address] | | | | | | [phone] | | | | | | | [...]
--- OUTSIDE RECORDS SUMMARY | ~2020-03-26 | XMS | Encounter Summary ---
Demographics + + + | Address | [address] | | | [place] [address] | + + + | Home Phone [...] Team Providers + +------+ + | Care Cook Chill Technician Name | Role | Phone | [...] | | | | [facility] | [facility] | | | | | [address] | [place], [place] | | | | | [facility] | [address] | | | | | and Healing, | [phone] | | | | | [address] | | | | | | [place], [place] | | | | | | [address] | | | | | | [phone] | | | +--------+ + + + [...] 02/22/2018 5:19 PM PDT Addendum created 02/22/18 0589 by Gay Hoff DNP, ANP Pend clinical note documented in th is encounter Plan of Treatment +--------+ + + + + | Date | Type | Specialty | Care Team | Description | +--------+ + + + + | 04/04/ | Telephone-S | Surgery | Orquidea Cristobal, | | | 2019 | cheloveled | | MANAGER LVN [address] | | | | | | [place], [place] | | | | | | [address] | | | | | | [phone] | | | | | | | | +--------+ + + + + documented as of this encounter Visit Diagnoses Not on filedocumented in this encounter"
--- OUTSIDE RECORDS SUMMARY | ~2020-03-26 | XMS | Encounter Summary ---
Demographics + + + | Address | [address] | | | [place] [address] | + + + | Home Phone [...] + | Kenny Padilla | ECON | [address] | | | | | [place], [place] | | | | | [address] | | + + + + + | Ellie Vang | ECON | Unknown | | + + + + + Care Team Providers + +------+ + | Care Rugby League Footballer Name | Role | Phone | + [...] + + | 11/05/ | Hospital | [facility] 14C [address] | Joseph Cox | | | 2016 - | Encounter | [address] | MD Birgit [address] [facility] | | | | | 14C [facility] | [address] | | | 11/20/ | | [place], [place] | [place], [place] | | | 2016 | | [address] | [address] | | | | | [phone] | [phone] | | | | | | | | | | | | Ana, | | | | | | MD Briana [address] | | | | | | [address] | | | | | | Rd [place], [place] | | | | | | [address] | | | | | | [phone] | | | | | | | | | | | | Carmleina Tucker, | | | | | | JEFFREY-Aimee [address] | | | | | | [address] | | | | | | [place], [place] | | | | | | [address] | | | | | | [phone] | | | | | | | | | | | | Charley Lacey MD | | | | | | Jose Scott MD | | | | | | [address] | | | | | | [address] | | | | | | [place], [place] | | | | | | [address] | | | | | | [phone] | | | | | | | | | | | | Mannie Larkin MD | | | | | | [address] | | | | | | [address] [place], | | | | | | [place] [address] | | | | | | [phone] | | | | | | | | | | | | Tyrone Adrian MD | | | | | | [address] | | | | | | [address] [place], | | | | | | [place] [address] | | | | | | [phone] | | | | | | | [...] did want her to follow up with log buyer in [place]. She should continue working towards bariatric surgery wh ich will ultimately put less stress on her heart. -Continue torsemide 80mg BID -Increase potassium supplementation to KCl 40mg BID -Daily weights and strict 2g Na 2L fluid restricted diet -Close followup with Dr. Goodrich (appt on 11/25 at 11AM) -Needs followup with cardiology in [place] #Left lower extremity DVT #Presumed PE Asymmetric left lower extremity pain and swelling was suspicious for DVT and confirmed with duplex ultrasound. Did not pursue CTA as it was decided that it would not tar heat exchanger cleaner . Started anticoagulation bridge with heparin gtt [...] mouth once daily. , Historical Med CALCIUM [id number]-GENIS ORAL Take 2 tablets by mouth two [...] Cyndi Meier Cardiology Congestive Heart Failure at [facility] [phone] Cardiology Additional Instructions/Orders: Diet [...] Good Yosef Segovia MD PGY-1 Internal Medicine [id number] INPATIENT FACULTY PROGRESS NOTE - GM 1 [...] (HCC) 15) Candidal intertrigo Tyrone Adrian MD [facility] 14C sound recordist Division of Hospital Medicine Department of Medicine [facility] [address] [place] [address] [facility] DEPARTMENT: Hosp- [id number] Place of Service: Date of Service: 11/21/2015 CSN: [id number] Modifiers:GC Resident Involved: Yes Suggested CPT: 03172 Discharge Management < 30 minute documented in this encou nter Medications at Time of Discharge + + + +---------+--------+ + | Medication | Sig | Dispensed | Refills | Start | End Date | | | | | | Date | | + + + +---------+--------+ + | CALCIUM | Take 2 tablets by | | 0 | | | | [id number]-GEN | mouth two times | | | [...] (HCC) 15) Candidal intertrigo Tyrone Adrian MD [facility] 14C sound recordist Division of Hospital Medicine Department of Medicine [facility] & [address] [place] [address] [facility] DEPARTMENT: [facility]- [id number] Place of Service: Date of Service: 11/20/2015 CSN: [id number] Modifiers:GC Resident Involved: Yes Suggested CPT: 17068 Subsequent Visit Exp Prob Foc/Mod Complexity 25 min olleen Diamond - 016 6:49 AM PDT PHYSICIAN GROUP CONTRACT ANALYST STUDENT PROGRESS NOTE FOR EDUCATIONAL PURPOSES [...] of ovarian cysts or menses related. Contact TAKE DOWN SORTER if TV-US i s ordered. - TV-US [...] - topiramate 200mg po bid JEFFREY Gee-S2 [facility] PA Student Feeding: <2L fluid, Diabetic diet, >2g na Analgesia: APAP, gabapentin, hydrocodone Thromboembolic prophylaxis: Heparin/warfarin Glycemic control: moderate ISS Mobility: Encourage walking and movement Discharge: Expect hospital stay another 2-3 days with PCP FU (Dr. Goodrich) on Saturday 11/25 @ 1 1 am. - Referral to Library Cataloging Technician Code status: FULL Associated attestation - Yosef Segovia - 11/20/2015 7:50 PM PDTI [facility] by JEFFREY Diamond and [...] PCP Yosef Segovia MD PGY-1 Internal Medicine [id number] Tyrone Adrian MD - 11/19/2015 11:51 AM [...] if the PO works) Tyrone Adrian MD [facility] 14C sound recordist Division of Hospital Medicine Department of Medicine [facility] & [address] [place] [address] [facility] DEPARTMENT: Hosp- [id number] Place of Service: - Date of Service: 11/19/2015 CSN: [id number] Modifiers:GC Resident Involved: Yes Suggested CPT: 84695 Subsequent Visit Exp Prob Foc/Mod Complexity 25 min lCollene goff - 016 6:24 AM PDT PHYSICIAN GROUP CONTRACT ANALYST STUDENT PROGRESS NOTE FOR EDUCATIONAL PURPOSES [...] Intake/Output Summary (Last 24 hours) at 11/19/15 0708 Last data filed at 11/19/15 0655 Gross [...] of ovarian cysts or menses related. Contact TAKE DOWN SORTER if TV-US i s ordered. - TV-US [...] - topiramate 200mg po bid JEFFREY Gee-S2 [facility] PA Student Feeding: <2L fluid, Diabetic diet, >2g na Analgesia: APAP, gabapentin, hydrocodone Thromboembolic prophylaxis: Heparin/warfarin Glycemic control: moderate ISS Mobility: Encourage walking and movement Discharge: Expect hospital stay another 3-5 days with diuresis until more euvolemic and R h eart cath can be completed. Code status: FULL Associated attestation - [place], Yosef Mart - 11/19/2015 7:38 PM PDTI [...] can. Yosef Segovia MD PGY-1 Internal Medicine [id number] Tyrone Adrian MD - 11/18/2015 2:01 PM [...] (HCC) 15) Candidal intertrigo Tyrone Adrian MD [facility] 14C sound recordist Division of Hospital Medicine Department of Medicine [facility] [address] [place] [address] [facility] DEPARTMENT: Hosp- [id number] Place of Service: [facility] Date of Service: 11/18/2015 CSN: [id number] Modifiers:GC Resident Involved: Yes Suggested CPT: 00302 Subsequent Visit Exp Prob Foc/Mod Complexity 25 [...] plan. Yosef Segovia MD PGY-1 Internal Medicine [id number] signed by Yosef Segovia at 11/18/2015 11:52 [...] (HCC) 15) Candidal intertrigo Tyrone Adrian MD [facility] 14C sound recordist Division of Hospital Medicine Department of Medicine [facility] [address] [place] [address] [facility] DEPARTMENT: Hosp- [id number] Place of Service: [facility] Date of Service: 11/17/2015 CSN: [id number] Modifiers:GC Resident Involved: Yes Suggested CPT: 68472 Subsequent Visit Exp Prob Foc/Mod Complexity 25 min olleen Diamond - 016 6:40 AM PDT PHYSICIAN GROUP CONTRACT ANALYST STUDENT PROGRESS NOTE FOR EDUCATIONAL PURPOSES ONLY INPATIENT PROGRESS NOTE PATIENT INFORMATION Patient Name: Elzbieta Cristina Date of : 1975 Date of Admission: 11/06/2015 PCP: Fadi Goodrich DO Room/Bed: [facility]/08/08 Attending Provider: Tyrone Adrian [...] Mag 2.3 K 3.6 ASSESSMENT/PLAN Elzbieta Shereen [place], a 40 year old morbidly obese woman [...] - topiramate 200mg po bid JEFFREY Gee-S2 [facility] PA Student Feeding: <2L fluid, Diabetic diet, [...] can Yosef Segovia MD PGY-1 Internal Medicine [id number] Tyrone Adrian MD - 11/16/2015 4:59 PM [...] (HCC) 15) Candidal intertrigo Tyrone Adrian MD [facility] 14C sound recordist Division of Hospital Medicine Department of Medicine [facility] & [address] [place] [address] [facility] DEPARTMENT: Hosp- [id number] Place of Service: Date of Service: 11/16/2015 CSN: [id number] Modifiers:GC Resident Involved: Yes Suggested CPT: 06096 Subsequent Visit Exp Prob Foc/Mod Complexity 25 min lColleen goff - 016 6:43 AM PDT PHYSICIAN GROUP CONTRACT ANALYST STUDENT PROGRESS NOTE FOR EDUCATIONAL PURPOSES [...] assistance of Grisel Pearl. Patient lives i [facility] which is quite a distance to travel to and from [place]. We would ideally arran ge cardiac follow [...] (HCC) 15) Candidal intertrigo Tyrone Adrian MD [facility] 14C sound recordist Division of Hospital Medicine Department of Medicine [facility] [address] [place] [address] [facility] DEPARTMENT: Hosp- [id number] Place of Service: - Date of Service: 11/15/2015 CSN: [id number] Modifiers:GC Resident Involved: Yes Suggested CPT: 28291 Subsequent Visit Detailed/High complexity 35 min lColleen goff - 016 6:33 AM PDT PHYSICIAN GROUP CONTRACT ANALYST STUDENT PROGRESS NOTE FOR EDUCATIONAL PURPOSES [...] last 8 days Intake 9571.5 ml Output 22156 ml Net since Admission -50451.5 ml -25.938 L = 57.0636 lbs Constitutional: [...] - topiramate 200mg po bid JEFFREY Gee-S2 [facility] PA Student Feeding: <2L fluid, Diabetic diet, [...] can Yosef Segovia MD PGY-1 Internal Medicine [id number] Tyrone Adrian MD - 11/14/2015 4:16 PM PDTINPATIENT FACULTY PROGRESS NOTE - GM 1 Author; Tyrone Adrian MD Attending Physician: Tyrone Adrian MD Hospital Day: 8 PCP: Fadi Goodrich DO PCP PCP Patient's Name: Elzibeta Cristina Today's Date: 11/14/2015 I personally interviewed [...] (HCC) 15) Candidal intertrigo Tyrone Adrian MD [facility] 14C sound recordist Division of Hospital Medicine Department of Medicine [facility] & [address] [place] [address] [facility] DEPARTMENT: Hosp- [id number] Place of Service: Date of Service: 11/14/2015 CSN: [id number] Modifiers:GC Resident Involved: Yes Suggested CPT: 04805 Subsequent Visit Exp Prob Foc/Mod Complexity 25 min lColleen goff - 016 6:42 AM PDT PHYSICIAN GROUP CONTRACT ANALYST STUDENT PROGRESS NOTE FOR EDUCATIONAL PURPOSES ONLY INPATIENT PROGRESS NOTE PATIENT INFORMATION Patient Name: Elzbieta Cristina Date of : 1975 Date of Admission: 11/06/2015 PCP: aFdi Goodrich DO Room/Bed: Attending Provider: Tyrone Adrian [...] - topiramate 200mg po bid JEFFREY Gee-S2 [facility] PA Student Feeding: <2L fluid, Diabetic diet, [...] outpatient Yosef Segovia MD PGY-1 Internal Medicine [id number] Tyrone Adrian MD - 11/13/2015 4:06 PM [...] (HCC) 15) Candidal intertrigo Tyrone Adrian MD [facility] 14C sound recordist Division of [facility] Medicine Department of Medicine [facility] [address] [place] [address] [facility] DEPARTMENT: Hosp- [id number] Place of Service: [facility] [id number] Date of Service: 11/13/2015 CSN: [id number] Modifiers:GC Resident Involved: Yes Suggested CPT: 42593 Subsequent Visit Detailed/High complexity 35 min olleen Diamond - 016 6:36 AM PDT PHYSICIAN GROUP CONTRACT ANALYST STUDENT PROGRESS NOTE FOR EDUCATIONAL PURPOSES [...] - topiramate 200mg po bid JEFFREY Gee-S2 [facility] PA Student Feeding: <2L fluid, Diabetic diet, [...] VTE. Yosef Segovia MD PGY-1 Internal Medicine [id number] Tyrone Adrian MD - 11/12/2015 1:59 PM PDTINPATIENT FACULTY PROGRESS NOTE - GM 1 Author; Tryone Adrian MD Attending Physician: Tyrone Adrian MD [...] 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, J TOPOGRAPHICAL ENGINEER, at this point not definitive Plan: continue [...] ongoing 12) Candidal intertrigo Tyrone Adrian MD [facility] 14C sound recordist Division of Hospital Medicine Department of Medicine [facility] [address] [place] [address] [facility] DEPARTMENT: Hosp- [id number] Place of Service: - Date of Service: 11/12/2015 CSN: [id number] Modifiers:GC Resident Involved: Yes Suggested CPT: 27281 Subsequent Visit Detailed/High complexity 35 min lshellColleen - 016 6:31 AM PDT PHYSICIAN GROUP CONTRACT ANALYST STUDENT PROGRESS NOTE FOR EDUCATIONAL PURPOSES [...] - topiramate 200mg po bid JEFFREY Gee-S2 [facility] PA Student Feeding: <2L fluid, Diabetic diet, [...] disease. Yosef Segovia MD PGY-1 Internal Medicine [id number] Mannie Larkin MD - 11/11/2015 9:19 PM [...] diuresis then RHC Mannie Larkin MD Clinical Cassandra Developer, Internal Medicine Pager [phone] ristalColleen martines - 10/25 6:40 AM PDT PHYSICIAN GROUP CONTRACT ANALYST STUDENT PROGRESS NOTE FOR EDUCATIONAL PURPOSES ONLY INPATIENT PROGRESS NOTE PATIENT INFORMATION Patient Name: Elzbieta Cristina Date of : 1975 Date of Admission: 11/06/2015 PCP: Fadi Goodrich DO Room/Bed: Attending Provider: Mnanie Larkin MD Encounter Information Date of Service: [...] pain Yosef Segovia MD PGY-1 Internal Medicine [id number] Maria Eugenia Leiva RCP - 11/11/2015 6:39 [...] another 5-7 days Mannie Larkin MD Clinical Cassandra Developer, Internal Medicine Pager [phone] Yosef Fang - 7:24 AM PDT General [...] plan. 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 In terms of AMARA - does not tolerate CPAP historically. Likely CPAP will be ve ry important for her going forward. Will try overnight oximetry here to assess severity. Discharge planning:Anticipate several days in house. I spent >35 min of which >50% was spent in counseling and coordination of care. Briana Perez MD [facility] Division of Hospital Medicine Grisel Mcghee NP [...] Maker Primary Surrogate Decision Maker Kenny kim [phone] Advanced Directives Existence of Advanced Directive Reviewed: No- Has Interest (11/09/15 1022) Advanced Directives Reviewed Comments: I gave a copy of advance directives (11/09/15 1022) KRISHNA Huertas NP 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 [...] - topiramate 200mg po bid JEFFREY Gee-S2 [facility] PA Student Feeding: <2L fluid, Diabetic diet Analgesia: APAP, gabapentin Thromboembolic prophylaxis: Heparin/warfarin Glycemic control: moderate ISS Mobility: Encourage walking and movement Discharge: Expect hospital stay ~1 week with goal of diuresing to patient's dry weight Code status: FULL Associated attestation - Yosef Segovia - 11/09/2015 6:37 PM PDTI [facility] written by PA student [...] AM Yosef Segovia MD PGY-1 Internal Medicine [id number] Briana Perez MD - 11/08/2015 2:01 PM [...] and coordination of care. Briana Perez MD [facility] Division of Hospital Medicine Colleen Tello - 11/08/2015 6:26 AM PDT PHYSICIAN GROUP CONTRACT ANALYST STUDENT PROGRESS NOTE FOR EDUCATIONAL PURPOSES [...] po bid (topamax, nerve pain) JEFFREY Gee-S2 [facility] PA Student Feeding: <2L fluid, Diabetic diet [...] Hair Md, MSc Internal Medicine PGY2 Pager [phone] Kwadwo Freire - 11/07/2015 2:05 PM PDTTransthoracic [...] plan. Yosef Segovia MD PGY-1 Internal Medicine [id number] lColleen goff - 016 8:43 AM PDT PHYSICIAN GROUP CONTRACT ANALYST STUDENT PROGRESS NOTE FOR EDUCATIONAL PURPOSES [...] perfusion. - consider US to evaluate liver (UDQD-imo-lzparypws fatty liver dz) and look for ascites. [...] did want her to follow up with log buyer in [place]. She should continue working towards bariatric surgery wh ich will ultimately put less stress on her heart. -Continue torsemide 80mg BID -Increase potassium supplementation to KCl 40mg BID -Daily weights and strict 2g Na 2L fluid restricted diet -Close followup with Dr. Goodrich (appt on 11/25 at 11AM) -Needs followup with cardiology in [place] #Left lower extremity DVT Asymmetric left lower extremity pain and swelling was suspicious for DVT and confirmed with duplex ultrasound. Did not pursue CTA as it was decided that it would not tar heat exchanger cleaner . Started anticoagulation bridge with heparin gtt [...] mouth once daily. , Historical Med CALCIUM CRB&GHE-Q0-MNV03-GENIS ORAL Take 2 tablets by mouth two [...] Status: Full POLST completed: no Follow-up Appointments: [facility] Future Appointments Provider Department Dept Phone Center 11/27/2015 9:00 AM Cyndi Meier Cardiology Congestive Heart Failure at [facility] Cardiology Additional Instructions/Orders: Diet Diabetic [...] Good Yosef Segovia MD PGY-1 Internal Medicine [id number] KaleeClay M D - 11/06/2015 8:59 PM [...] on the floor - Kenny lemus - [phone] For a complete HP please see the bakery pastry internship note. Clay Villalta MD Internal Medicine R-2 [id number] obbs, Will Colvin MD - 11/06/2015 8:53 [...] times daily as needed for anxiety. CALCIUM CRB&LQA-Y7-FQE02-GENIS ORAL Sig: Take 2 tablets by mouth [...] AM Will Beltran MD Internal Medicine, PGY1 [id number] Associated attestation - Briana Perez MD - [...] note for additional details. Briana Perez MD [facility] Division of Hospital Medicine documented in this [...] Administration IV fluids and meds Procedure location: Unit:[facility] Room: 13 Providers: PICC Nurse name: Sulema Cedeño RN VAT Assisted by Gilda RAUSCH Pre-Procedure Consent: written consent obtained Consent given by: Patient Patient identity confirmed per protocol: Yes Team Pause: Immediatly prior to the procedure a pause per protocol was called. A pause veri fies correct patient, procedure, equipment, community support specialist and site/side marked as required. CLABSI Prevention [...] area Cephalic vein. Ca theter lot number: [id number] with a length of 55 cm was [...] and make recommendations. Please page clinical pharmacist (#[phone]) or call central inpatient pharmacy ([phone]) with questions. Subjective/Objective: Allergies: Amoxicillin; Benadrilina; and [...] CARDIOLOGY CONSULTATION (follow up note) Fellow: Jose Vaelntine M.D. Follow up note 11/20/2015 Significant past [...] We have asked her to find a log buyer close to home to follow up with [...] MD CV Fellow Division of Cardiovascular Medicine [facility] Pager [phone] Chanda Aguilar, Manjeet armD - 11/20/2015 10:42 [...] and make recommendations. Please page clinical pharmacist (#[phone]) or call central inpatient pharmacy ([phone]) with questions. Subjective/Objective: Allergies: Amoxicillin; Benadrilina; and [...] regimen: TBD Thank you, Chanda Pulido PharmD, [facility] Pager [phone] Chanda Aguilar, Ph armD - 11/19/2015 2:27 PM PDT Pharmacy Services: Warfarin Anticoagulation Note Assessment/Plan: Elzbieta Shereen [place], a 40 year old female newly started [...] and make recommendations. Please page clinical pharmacist (#[phone]) or call central inpatient pharmacy ([phone]) with questions. Subjective/Objective: Allergies: Amoxicillin; Benadrilina; and [...] Thank you, Chanda Pulido, PharmD, BCPS Pager [phone] Aubrey Stephenson, PharmD - 11/18/2015 8:33 AM [...] and make recommendations. Please page clinical pharmacist (#[phone]) or call central inpatient pharmacy ([phone]) with questions. Subjective/Objective: Allergies: Amoxicillin; Benadrilina; and [...] you for the consult, Maegan Mackay PharmD, [facility] Clinical Pharmacist, Medicine Pager: [phone] Du Stephenson PharmD - 11/17/2015 7:44 AM [...] and make recommendations. Please page clinical pharmacist (#[phone]) or call central inpatient pharmacy ([phone]) with questions. Subjective/Objective: Allergies: Amoxicillin; Benadrilina; and [...] you for the consult, Maegan Mackay, PharmD, [facility] Clinical Pharmacist, Medicine Pager: [phone] ERFoSkye olson PharmD - 11/16/2015 9:18 AM [...] and make recommendations. Please page clinical pharmacist (#[phone]) or call central inpatient pharmacy ([phone]) with questions. Subjective/Objective: Allergies: Amoxicillin; Benadrilina; and [...] and make recommendations. Please page clinical pharmacist (#[phone]) or call central inpatient pharmacy ([phone]) with questions. Subjective/Objective: Allergies: Amoxicillin; Benadrilina; and [...] for presumed cellulitis. Upon arrival to the [facility], she was found to have a DVT so Abx were discontinued and she was placed on a heparin gt t and is currently being transitioned to warfarin. She has also been aggressively diuresed w [facility] IV Lasix and her weight has decreased [...] to Bromocriptine Myalgia and myositis Bipolar disorder ([facility]) Depression Staphylococcal infection Anemia Chronic wound infection of abdomen ([facility]) from 2010 Morbid obesity with body mass index of 70 and over in adult ([facility]) Incisional hernia, incarcerated 2013 Hernia of abdominal wall Stroke ([facility]) Dizziness Numbness Heart burn Nausea Abdominal pain [...] times daily as needed for anxiety. CALCIUM CRB&RQV-G3-BXB77-GENIS ORAL Sig: Take 2 tablets by mouth [...] History Narrative Updated 11/09/15 She lives in [place] with her mother and her sister (also her caregiver) lives [facility] [place] [facility]. She has 2 grandchildren (age 4 and 7) who live with her daughter and son-in-law Her boyfriend lives in [place] Family History I have updated the Family [...] last 8 days Intake 9571.5 ml Output 13257 ml Net since Admission -62134.5 ml General Appearance: AAOx3, NAD HEENT: MMM, [...] symptoms is diastolic heart failure and t [facility] would continue to encourage weight loss and [...] would be futile as it would not tar heat exchanger cleaner. In the interim, we wo uld suggest continued diuresis. Though her volume status is difficult to interpret, her dry weight based on chart review is likely around 390-400lbs, so would diurese until her creatin ine bumps. When she is dry, we will reassess her symptoms. Given how far she lives from [facility] , it would not be unreasonable to [...] Loza MD Internal Medicine Resident, PGY2 Pager: [phone] Attending Note I have seen and examined [...] options for follow-up are. Odette Naylor MD Aircraft Instrument Mechanic, [facility] Cardiovascular [place] [facility] ERFoSkye olson, [...] and make recommendations. Please page clinical pharmacist (#[phone]) or call central inpatient pharmacy ([phone]) with questions. Subjective/Objective: Allergies: Amoxicillin; Benadrilina; and [...] and make recommendations. Please page clinical pharmacist (#[phone]) or call central inpatient pharmacy ([phone]) with questions. Subjective/Objective: Allergies: Amoxicillin; Benadrilina; and [...] and make recommendations. Please page clinical pharmacist (#[phone]) or call central inpatient pharmacy ([phone]) with questions. Subjective/Objective: Allergies: Amoxicillin; Benadrilina; and [...] and make recommendations. Please page clinical pharmacist (#[phone]) or call central inpatient pharmacy ([phone]) with questions. Subjective/Objective: Allergies: Amoxicillin; Benadrilina; and [...] of note Johanna Trimble PharmD PGY-1 Clinical Dietary Manager Pager #[phone] Edson Chao PharmD - 11/10/2015 6:28 AM [...] and make recommendations. Please page clinical pharmacist (#[phone]) or call central inpatient pharmacy ([phone]) with questions. Subjective/Objective: Allergies: Amoxicillin; Benadrilina; and [...] of note Johanna Trimble PharmD PGY-1 Clinical Dietary Manager Pager #[phone] oSkye olson, Ph armD - 11/09/2015 12:21 [...] and make recommendations. Please page clinical pharmacist (#[phone]) or call central inpatient pharmacy ([phone]) with questions. Subjective/Objective: Allergies: Amoxicillin; Benadrilina; and [...] some left SF plus cream 1.1% Oral [place] 2 - 3 times per day. Do [...] syndrome. Patient mentioned mainly filling prescriptions at [facility] and her pain prescriptions at [facility]. Called [facility] to verify prescription fill history, spoke to jc potter. Mention [facility] has only filled eletriptan on 07/22/15. There was no fill history of alprazolam or potass ium filled at [facility]. Tried to contact [facility] to verify medication fill history. Was not able to reach the [facility] j[facility] dept (kept getting send to semiconductor wafers saw operator who is unavailable). Contacted home store to be tr ansferred to pharmacy department and resulted in the same semiconductor wafers saw operator who is unavailable. Faxe d a [...] a 40 year old female admitted to [facility] for DVT and heart failure exacerbation Pharmacy Preferences: [facility] [address] [place] [address] Hours: 9am-7pm Mon-fri / 9am-6pm Sat / Closed Sun E-Prescribing: Yes E-Prescribing Control Substances: Yes [facility] #[id number] [address] [place] [address] Hours: 9am-7pm Mon-fri / 9am-6pm Sat / [...] information contact Kallie Heard PharmD Candidate 2016 [employer] Pager # [phone] Associated attestation - Maegan Mackay PharmD - 11/08/2015 3:32 PM PDTI have review ed and agree with the pharmacy technology instructor's documentation and have documented any additions or exceptions. Maegan Mackay PharmD, [facility] Clinical Pharmacist, Medicine Pager: [phone] Skye Goyal PharmD - 11/08/2015 7:47 AM [...] and make recommendations. Please page clinical pharmacist (#[phone]) or call central inpatient pharmacy ([phone]) with questions Subjective/Objective: Allergies: Amoxicillin; Benadrilina; and [...] and make recommendations. Please page clinical pharmacist (#[phone]) or call central inpatient pharmacy ([phone]) with questions Subjective/Objective: Elzbieta Critsina, a 40 year old female with hx [...] 500 mg by mouth once daily. CALCIUM [id number]-GENIS ORAL, Take 2 tablets by mouth two [...] 37.5 mg by mouth before breakfast. 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 CALCIUM [id number]-GENIS ORAL 11/06/2015 at Unknown time Yes Yes [...] regarding this information please contact pharmacy, pager [phone] Luca Goodman Jr., PharmD, BCPS Clinical Pharmacist [facility] Pharmacy Services Benito Kumar Phar mD - [...] of vancomycin levels. Please page clinical pharmacist ([phone]) or call central inpatient pharmacy ([phone]) with qu estions. Actual body weight: Weight: 214.551 kg (473 lb) (11/06/15 1340) Labs: CREATININE PLASMA (LAB) (mg/dL) Date Value 11/06/2015 0.82 BUN, PLASMA (LAB) (mg/dL) Date Value 11/06/2015 16 WHITE CELL COUNT (K/cu mm) Date Value 11/06/2015 14.02* Pertinent cultures/sensitivities: No positive culture results in EPIC Thank you for the consult, Benito Fernando, Pharm.D. [place] [phone] documented in this encounter ED Notes Celina Cummings RN - 11/07/2015 11:05 PM PDTTransport team in ED obs to transfer pt [facility]. Pt aware of plan of [...] are based on published values utilizing a [employer] TSH assay, and should be interpreted [...] Abnormality Status --------- ------ CBC AND AUTO DIFF[[id number]] Abnormal Final result Please view results for these tests on the individual orders. RAINBOW HOLD TUBE - BLUE TOP CBC ONLY Narrative: The following orders were created for panel order CBC ONLY. Procedure Abnormality Status --------- ------ CBC (HEMOGRAM) ONLY[[id number]] Abnormal Final result Please view results for [...] or Moderate to Gross Hemolysis CULTURE, URINE [facility] CAPILLARY BLOOD GLUCOSE (NO CHG), POC TROPONIN, [...] Mcghee RN - 11/07/2015 12:52 PM PDTEcho [employer] Tucker notified that pt now has IV accessElectronically s igned by Rachele Crook RN at 11/07/2015 12:55 PM Rachele Mcghee RN - 11/07/2015 11:49 AM PDTPIV x2 placed by IV therapy, blood drawn for heparin levels, spoke with KALYAN Cosme, ok to also send 1400 BMS now. 11 :49 AM Rachele Mcghee RN - 11/07/2015 11:28 AM PDTIV therapy to bedsideElectronically s igned by Rachele Crook RN at 11/07/2015 11:28 AM Rachele Mcghee RN - 11/07/2015 11:16 AM [id number]:Pt complaining of pain at IV site, pt reports she is a hard stick, IV access att empted x1 by KELSIE Garcia. Entered order for IV therapy consult for line placement, heparin and labs. 1115: echo here for test, IV access needed, called [facility], they will call IV therapy to come and eval pt. Radha Neumann RN - 11/07/2015 7:28 AM PDTUlt [employer] called inquiring on repeat imagining that was [...] returned from [place].Electronically signed by Olga Lidia Garcia RN at 016 12:55 AM Joseph Peterson MD - 11/07/2015 12:08 AM PDTFormatting of this note migh t be different from the original. ED Individual Provider Note, Jospeh Cox MD: Cellulitis 40 y.o. female to [...] Decreased mobility 06/16/2013 Hypoventilation associated with obesity ([facility]) 06/16/2013 PCOS (polycystic ovarian syndrome) 06/16/2013 Ventral hernia 06/16/2013 Type 2 diabetes mellitus ([facility]) 04/14/2013 AMARA (obstructive sleep apnea) 04/14/2013 Overview Note: Cannot tolerate CPAP Edema 04/14/2013 GERD (gastroesophageal reflux disease) 04/14/2013 Morbid obesity ([facility]) 11/12/2012 Overview Note: Lifetime max: 495 lbs Hernia 11/05/2012 Past Medical History Diagnosis Date Neck pain Insomnia Allergic rhinitis Lymphedema Diverticulitis of colon Hemorrhoids UTI (urinary tract infection) Tinea corporis Osteoarthritis of knee TIA (transient ischemic attack) due to Bromocriptine Myalgia and myositis Bipolar disorder ([facility]) Depression Staphylococcal infection Anemia Chronic wound infection of abdomen ([facility]) from 2010 Morbid obesity with body mass index of 70 and over in adult ([facility]) Incisional hernia, incarcerated 2012 Hernia of abdominal wall Stroke ([facility]) Dizziness Numbness Heart burn Nausea Abdominal pain [...] Brian Incisional hernia repair 03/01/2015 [facility]/ Dr. Cantu. Primary fascial closure and scar excision Medications Prior to Admission Medications Prescriptions Last Dose Informant Patient Reported? Taking? ALPRAZolam 1 mg oral tablet 11/06/2015 at Unknown time Yes Yes Sig: Take 1 mg by mouth three times daily as needed for anxiety. CALCIUM CRB&VQE-[id number]-GENIS ORAL 11/06/2015 at Unknown time Yes Yes [...] is negative except as stated in the [facility] ED Triage Vitals BP Temp Pulse Pulse [...] PLASMA (LAB) 0.82 0.60-1.10 mg/dL EGFR - PARAGUAYAN >60 >60 mL/min EGFR NON -PARAGUAYAN >60 >60 mL/min SODIUM, PLASMA (LAB) 139 [...] EXCHANGE Result Value Ref Range DELTA PID [id number] 40-year-old female presents to the emergency department [...] Admit Requested: Nov 06, 2015 8:32 PM Elzbieta Cristina requires hospitalization beyond acute emergency department [...] [facility], JEFFREY Aguirre - Admitted to , boarding, to transfer when bed available Katherine Orozco MD Ivette Phan - 10/25 9:12 PM PDTChart reviewed for admission. Ivette Diallo RN gill box fixer/Evening Admission RN Pager: [phone] Mary Monge RN - 8:49 PM PDTPt requesting to eat, will ask MD.Electronically signed by KELSIE Cee 11/06/2015 8:49 PM PDTBriana Barrios RN - 11/06/2015 8:12 PM PDTMD [facility] at [facility]. ridger Hernandez RN - 11/06/2015 1:41 PM [...] No need for discharge planning assistance from [facility] Nurse Care Management anticipated at this time. Please notify CM if any RN Care Management d/c needs arise. KELSIE Braswellweb manager RN Inpatient Care Management [address] General Medicine [phone] Pager [phone] andoff - Stefany Burkett RN - 11/21/2015 4:48 AM PDTNursing Handoff Patient Daily Goal: Not stated (11/20/15744) Patient Specific Preferences: na (11/20/15744) [facility] HANDOFF: [facility] [...] stated (11/20/15744) Patient Specific Preferences: na (11/20/15744) [facility] IP NURSE HANDOFF: [facility] [...] PDTNursing Handoff Patient Daily Goal: sleep (11/18/15 4886) Patient Specific Preferences: 1 (11/16/152223) [facility] IP NURSE HANDOFF: [facility] [...] sleep (11/18/152157) Patient Specific Preferences: 1 (11/16/152223) [facility] IP NURSE HANDOFF: [facility] [...] As evidenced by: Elzbieta was very anxious about being taken off [...] (11/18/15 0802) Patient Specific Preferences: 1 (11/16/15 3492) [facility] IP NURSE HANDOFF: [facility] [...] correct (11/16/152223) Patient Specific Preferences: 1 (11/16/152223) [facility] IP NURSE HANDOFF: [facility] [...] tolerated so that she continues to pro amxwell with no evidence of decline. COMFORT/ANXIETY/BEHAVIOR Patient [...] correct (11/16/152223) Patient Specific Preferences: 1 (11/16/152223) [facility] IP NURSE HANDOFF: [facility] [...] Skin care in the afternoon (11/16/15 0738) [facility] IP NURSE HANDOFF: [facility] [...] 000) Patient Specific Preferences: n/a (11/14/15 0800) [facility] IP NURSE HANDOFF: [facility] [...] 000) Patient Specific Preferences: n/a (11/14/15 0800) [facility] IP NURSE HANDOFF: [facility] [...] next draw with morning labs, [facility] --continue to assess pain level and offer pain med Q4 hrs --no discharge until next week, continues to diureses with IV lasix --strick I/O Arianne - Lanette Nolan RN - 11/15/2015 3:31 AM PDTNursing Handoff Patient Daily Goal: Shower today (11/14/15 0800) Patient Specific Preferences: n/a (11/14/15 08) [facility] IP NURSE HANDOFF: [facility] [...] 0800) Patient Specific Preferences: n/a (11/14/15 08) [facility] IP NURSE HANDOFF: [facility] [...] No need for discharge planning assistance from [facility] Nurse Care Management a nticipated at this time. Please see MD notes, After Visit Summary (discharge instructions), and any additional ancillary consultation notes for further discharge needs or f/u needs P lease notify CM if any RN Care Management d/c needs arise. KELSIE Braswellweb manager RN Inpatient Care Management [address] General Medicine [phone] Pager [phone] andamy - Cesario Kaur RN - 11/14/2015 3:10 AM PDTNursing Handoff Patient Daily Goal: To go for a walk today (11/13/15 0900) Patient Specific Preferences: Ordered meal. Took shower today. (11/08/151950) [facility] IP [facility]URSE HAND[facility]: [facility] [...] Preferences: Ordered meal. Took shower today. (11/08/151950) [facility] IP NURSE HANDOFF: [facility] [...] Preferences: Ordered meal. Took shower today. (11/08/151950) [facility] IP NURSE HANDOFF: [facility] [...] Preferences: Ordered meal. Took shower today. (11/08/151950) [facility] IP NURSE HANDOFF: [facility] [...] Preferences: Ordered meal. Took shower today. (11/08/151950) [facility] IP NURSE HANDOFF: [facility] [...] very e ffective. RESTORATIVE MEASURES/SELF-MANAGEMENT Patient Target: [place] will continue to ambulate to the bathroom [...] Preferences: Ordered meal. Took shower today. (11/08/151950) [facility] IP NURSE HANDOFF: [facility] [...] Preferences: Ordered meal. Took shower today. (11/08/151950) [facility] IP NURSE HANDOFF: [facility] [...] Preferences: Ordered meal. Took shower today. (11/08/151950) [facility] IP NURSE HANDOFF: [facility] [...] to Bromocriptine Myalgia and myositis Bipolar disorder ([facility]) Depression Staphylococcal infection Anemia Chronic wound infection of abdomen ([facility]) from 2010 Morbid obesity with body mass index of 70 and over in adult ([facility]) Incisional hernia, incarcerated 2012 Hernia of abdominal wall Stroke ([facility]) Dizziness Numbness Heart burn Nausea Abdominal pain [...] Brian Incisional hernia repair 03/01/2015 [facility]/ Dr. Cantu. Primary fascial closure [...] reports this exercise was a 6/10 RPE. [facility] BASIC MOBILITY Difficulty turning over in bed [...] w/railing 4 - None - Modified Independent/Independent [facility] Basic Mobility Total Score 21 *Note: activity was not directly observed and scoring is based on skills and deficits [facility] Interpretation of [facility] Short Form - Basic Mobility: CMS Modifier [...] care, role of PT, pt requested a lmcxxqx-ws-youktgve plan. Pt educated on aiming for 3-5 [...] PDTNursing Handoff Patient Daily Goal: PICC (11/09/15 1135) Patient Specific Preferences: Ordered meal. Took shower today. (11/08/151950) [facility] [...] utilize HF tools available to her through [facility] with new HF diag nosis Progress to [...] Preferences: Ordered meal. Took shower today. (11/08/151950) [facility] IP [facility]URSE HANDOFF[facility] [...] utilize HF tools available to her through [facility] with new HF diag nosis Progress to [...] Preferences: Ordered meal. Took shower today. (11/08/151950) [facility] IP [facility]URSE HANDOFF: [facility] [...] during the n ight. HYGIENE/INFECTION Patient Target: Elzbieta will have no [...] utilize HF tools available to her through 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 Appetite and PO int americo are good. Following. 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 KELSIE Braswellweb manager MICHAELLE CARROLL RN Inpatient Care Management [address] General Medicine [phone] Pager [phone] signed by Michaelle Carroll RN at 11/08/2015 1:43 PM PDTHandoff - Fide Rodríguez RN - 11/08/2015 12:50 AM PDTNursing Handoff Patient Daily Goal: Get some sleep and take a shower in the morning (11/07/152331) Patient Specific Preferences: Cluster care. Get settled in new room. (11/07/152331) [facility]URSE [facility] [...] and have decreased anxiety with transfer to [facility] from ED obs Progress to Target: [...] home. Walke r provided to her on [facility]. She states that she does have Caregivers at home that do help her with specific task, such as skin are and trimming her toenails. HEALTH PROMOTION Patient Target: Elzbieta will understand and utilize HF tools available to her through [facility] with new HF diag nosis Progress to Target: Improving As evidenced by: HF packet given to Elzbieta and first weight recorded. Patient states she will look over it tomorrow as it was late when she arrived to [facility]. Encouraged her to ask questions related [...] JOSEPH COX MD Department of Emergency Medicine [facility] ransfer Note - Deepthi Garcia FNP - [...] | | 2019 | cheduled | | [facility] [address] | | | | | | [place], [place] | | | | | | [address] | | | | | | [phone] | | | | | | | [...] [facility] | [address] | [place], [place] | | | [place] [facility]ARE | [address] | [address] | | | TESTS | | | [...] [facility] | [address] | [place] [address] | | | SERVICES, LYDIA | LESLY [...] [facility] | [address] | [place] [address] | | | SERVICES, CORE | PARK [...] | | | LABORATORY | | | PARAGUAYAN | | | SERVICES, | | | [...] the MDRD equation recommended by the | [facility] | | National Kidney Disease Education Program. [...] [facility] | [address] | [place] [address] | | | LYDIA RANGEL | LESLY [...] [facility] | [address] | [place], [place] | | | [place]ARE | [address] | [address] | | | TESTS | | | [...] [facility] | [address] | [place], [place] | | | [facility] OF [facility] | [facility] | [address] | | | TESTS | | | [...] [facility] | [address] | [place], [place] | | | [facility] OF CARE | [facility] | [address] | | | TESTS | | | [...] [facility] | [address] | [place], [place] | | | [place] [facility]ARE | [address] | [address] | | | TESTS | | | [...] [facility] | [address] | [place], [place] | | | [facility] OF JAKY | [facility] | [address] | | | TESTS | | | [...] [facility] | [address] | [place] [address] | | | SERVICES, LYDIA | LESLY [...] + + + + + | [facility] | [address] | [place] [address] | | | SERVICES, CORE | LESLY [...] [facility] | [address] | [place] [address] | | | SERVICES, CORE | LESLY [...] | | | LABORATORY | | | PARAGUAYAN | | | SERVICES, | | | [...] + + + + + | [facility] | [address] | [place] [address] | | | SERVICES, CORE | LESLY [...] [facility] | [address] | [place] | | | [facility] OF CARE | [address] | [address] | | | TESTS | | | [...] [facility] | [address] | [place], [place] | | | [facility] OF [facility] | [address] | [address] | | | TESTS | | | [...] [facility] | [address] | [place] [address] | | | CLAIRE, LYDIA | PARK [...] | + + + + + | [facility] | [address] | [place] [address] | | | SERVICES, CORE | LESLY [...] | | | LABORATORY | | | PARAGUAYAN | | | SERVICES, | | | [...] [facility] | [address] | [place] [address] | | | SERVICES, CORE | LESLY [...] + + + | [facility] | [address] | [place], [place] | | | [facility] [facility]ARE | [address] | [address] | | | TESTS | | | [...] [facility] | [address] | [place], [place] | | | [facility] [facility]ARE | [address] | [address] | | | TESTS | | | [...] [facility] | [address] | [place], [place] | | | [facility] [facility]ARE | [address] | [address] | | | TESTS | | | [...] + + + | [facility] | [address] | [place], [place] | | | [facility] [facility]ARE | [address] | [address] | | | TESTS | | | [...] [facility] | [address] | [place] [address] | | | SERVICES, CORE | PARK [...] | + + + + + | [facility] | [address] | [place] [address] | | | SERVICES, CORE | LESLY [...] [facility] | [address] | [place], [place] | | | JUST[facility]WN OF JAKY | [address] | [address] | | | TESTS | | | [...] | [facility] | [address] | [place], [place] | | | L[facility] OF [facility] | [facility] | [address] | | | TESTS | | | [...] [facility] | [address] | [place] [address] | | | SERVICES, CORE | PARK [...] + | [facility] | [address] | [place] [address] | | | SERVICES, CORE | PARK [...] + + + + + | [facility] | [address] | [place] [address] | | | LYDIA RANGEL | LESLY [...] | | | LABORATORY | | | PARAGUAYAN | | | SERVICES, | | | [...] + + + + + | [facility] | [address] | [place] [address] | | | SERVICES, CORE | LESLY [...] AMES | [address] | [place], [place] | | | JUST[facility]WN OF JAKY | [address] | [address] | | | TESTS | | | [...] [facility] | [address] | [place], [place] | | | [facility] | [facility] | [address] | | | TESTS | | | [...] [facility] | [address] | [place], [place] | | | [facility] [facility] OF CARE | [address] | [address] | | | TESTS | | | [...] [facility] | [address] | [place], [place] | | | [facility] OF [facility] | [address] | [address] | | | TESTS | | | [...] [facility] | [address] | [place] [address] | | | LYDIA RANGEL | LESLY [...] [facility] | [address] | [place] [address] | | | SERVICES, CORE | [address] | | | + + + + + MAGNESIUM, PLASMA (11/17/2015 5:39 AM PDT) + +-------+ + + + | Component | Value | Ref Range | Performed | Pathologist | | | | | At | Signature | + +-------+ + + + | MAGNESIUM,P | 2.3 | 1.8 - 2.5 mg/dL | [facility] | | | JING | | | [...] + + + + + | [facility] | [address] | [place] [address] | | | SERVICES, CORE | LESLY [...] | | | LABORATORY | | | PARAGUAYAN | | | SERVICES, | | | [...] the MDRD equation recommended by the | [facility] | | National Kidney Disease Education Program. [...] [facility] | [address] | [place] [address] | | | SERVICES, CORE | PARK [...] [facility] | [address] | [place] [address] | | | SERVICES, CORE | PARK [...] [facility] | [address] | [place] [address] | | | SERVICES, CORE | LESLY [...] [facility] | [address] | [place], [place] | | | [facility] OF JAKY | [facility] | [address] | | | TESTS | | | [...] [facility] | [address] | [place], [place] | | | JUST[facility] DAWN OF CARE | [facility] [facility] | [address] | | | TESTS | | | [...] [facility] | [address] | [place], [place] | | | [facility] | [address] | [address] | | | TESTS | | | [...] + + + + + | [facility] | [address] | [place] [address] | | | SERVICES, CORE | LESLY [...] [facility] | [address] | [place], [place] | | | [facility] | [address] | [address] | | | TESTS | | | [...] [facility] | [address] | [place] [address] | | | SERVICES, CORE | PARK [...] [facility] | [address] | [place] [address] | | | SERVICES, CORE | PARK [...] | | | LABORATORY | | | PARAGUAYAN | | | SERVICES, | | | [...] the MDRD equation recommended by the | [facility] | | National Kidney Disease Education Program. [...] [facility] | [address] | [place] [address] | | | SERVICES, CORE | [address] | | | + + + + + MAGNESIUM, PLASMA (11/16/2015 3:08 AM PDT) + +-------+ + + + | Component | Value | Ref Range | Performed | Pathologist | | | | | At | Signature | + +-------+ + + + | MAGNESIUM,P | 2.3 | 1.8 - 2.5 mg/dL | [facility] | | | LASMA | | | [...] [facility] | [address] | [place] [address] | | | SERVICES, CORE | LESLY [...] [facility] | [address] | [place], [place] | | | [facility] | [address] | [address] | | | TESTS | | | [...] + + + + + | [facility] | [address] | [place] [address] | | | SERVICES, CORE | LESLY [...] [facility] | [address] | [place], [place] | | | [facility] | [facility] | [address] | | | TESTS | | | [...] + + + + + | [facility] | [address] | [place] [address] | | | SERVICES, CORE | LESLY [...] [facility] | [address] | [place], [place] | | | [facility] | [address] | [address] | | | TESTS | | | [...] - [facility] | [address] | [place], [place] | | | [facility] | [facility] | [address] | | | TESTS | | | [...] [facility] | [address] | [place] [address] | | | CLAIRE, LYDIA | LESLY [...] [facility] | [address] | [place] [address] | | | SERVICES, CORE | LESLY [...] [facility] | [address] | [place] [address] | | | SERVICES, CORE | PARK [...] + + + + + | [facility] | [address] | [place] [address] | | | SERVICES, CORE | PARK [...] | | | LABORATORY | | | PARAGUAYAN | | | SERVICES, | | | [...] [facility] | [address] | [place] [address] | | | SERVICES, CORE | LESLY [...] [facility] | [address] | [place], [place] | | | [facility] | [address] | [address] | | | TESTS | | | [...] + + + + + | [facility] | [address] | [place] [address] | | | SERVICES, LYDIA | LESLY [...] [facility] | [address] | [place], [place] | | | [facility] | [facility] | [address] | | | TESTS | | | [...] [facility] | [address] | [place], [place] | | | [facility] | [address] | [address] | | | TESTS | | | [...] + + + + + | [facility] | [address] | [place] [address] | | | SERVICES, CORE | LESLY [...] [facility] | [address] | [place], [place] | | | [facility] | [address] | [address] | | | TESTS | | | [...] [facility] | [address] | [place] [address] | | | SERVICES, CORE | PARK [...] [facility] | [address] | [place] [address] | | | SERVICES, CORE | PARK [...] + + + + + | [facility] | [address] | [place] [address] | | | SERVICES, CORE | LESLY [...] | | | LABORATORY | | | PARAGUAYAN | | | SERVICES, | | | [...] [facility] | [address] | [place] [address] | | | SERVICES, CORE | LESLY [...] [facility] | [address] | [place], [place] | | | [facility] | [facility] | [address] | | | TESTS | | | [...] [facility] | [address] | [place] | | | [facility] | [facility] | [address] | | | TESTS | | | [...] [facility] | [address] | [place], [place] | | | [facility] | [address] | [address] | | | TESTS | | | [...] [facility] | [address] | [place], [place] | | | [facility] | [facility] | [address] | | | TESTS | | | [...] [facility] | [address] | [place] [address] | | | SERVICES, CORE | PARK [...] [facility] | [address] | [place] [address] | | | SERVICES, LYDIA | PARK [...] + + + + + | [facility] | [address] | [place] [address] | | | SERVICES, CORE | PARK [...] + + + + + | [facility] | [address] | [place] [address] | | | SERVICES, CORE | LESLY [...] [facility] | [address] | [place] [address] | | | LYDIA RANGEL | LESLY [...] | | | LABORATORY | | | PARAGUAYAN | | | SERVICES, | | | [...] + + + + + | [facility] | [address] | [place] [address] | | | SERVICES, LYDIA | LESLY [...] [facility] | [address] | [place] [address] | | | SERVICES, CORE | PARK [...] | | | LABORATORY | | | PARAGUAYAN | | | SERVICES, | | | [...] | + + + + + | [facility] | [address] | [place] [address] | | | LYDIA RANGEL | LESLY [...] - [facility] | [address] | [place], [place] | | | [facility] | [facility] | [address] | | | TESTS | | | [...] [facility] | [address] | [place], [place] | | | [facility] | [address] | [address] | | | TESTS | | | [...] [facility] | [address] | [place], [place] | | | [facility] | [address] | [address] | | | TESTS | | | [...] - [facility] | [address] | [place], [place] | | | [facility] | [address] | [address] | | | TESTS | | | [...] [facility] | [address] | [place] [address] | | | SERVICES, CORE | PARK [...] + + + + + | [facility] | [address] | [place] [address] | | | SERVICES, CORE | [address] | | | + + + + + MAGNESIUM, PLASMA (11/12/2015 4:13 AM PDT) + +-------+ + + + | Component | Value | Ref Range | Performed | Pathologist | | | | | At | Signature | + +-------+ + + + | MAGNESIUM,P | 2.3 | 1.8 - 2.5 mg/dL | [facility] | | | LASMA | | | [...] [facility] | [address] | [place] [address] | | | SERVICES, CORE | PARK [...] | | | LABORATORY | | | PARAGUAYAN | | | SERVICES, | | | [...] + + + + + | [facility] | [address] | [place] [address] | | | SERVICES, CORE | LESLY [...] [facility] | [address] | [place], [place] | | | [facility] | [address] | [address] | | | TESTS | | | [...] [facility] | [address] | [place] [address] | | | SERVICES, CORE | LESLY [...] [facility] | [address] | [place] [address] | | | SERVICES, CORE | LESLY [...] [facility] | [address] | [place] [address] | | | SERVICES, CORE | PARK [...] [facility] | [address] | [place] [address] | | | SERVICESLYDIA | [address] [...] - [facility] | [address] | [place] | | | [facility] | [address] | [address] | | | TESTS | | | [...] [facility] | [address] | [place], [place] | | | [facility] | [address] | [address] | | | TESTS | | | [...] | + + + + + | [facility] | [address] | [place] [address] | | | LYDIA RANGEL | LESLY [...] [facility] | [address] | [place], [place] | | | [facility] | [address] | [address] | | | TESTS | | | [...] [facility] | [address] | [place] [address] | | | SERVICES, CORE | PARK [...] + + + + + | [facility] | [address] | [place] [address] | | | SERVICES, CORE | LESLY [...] [facility] | [address] | [place] [address] | | | SERVICES, CORE | PARK [...] | | | LABORATORY | | | PARAGUAYAN | | | SERVICES, | | | [...] + + + + + | [facility] | [address] | [place] [address] | | | SERVICES, CORE | PARK [...] [facility] | [address] | [place], [place] | | | [facility] | [address] | [address] | | | TESTS | | | [...] [facility] | [address] | [place] [address] | | | LYDIA RANGEL | LESLY [...] [facility] | [address] | [place] | | | [facility] | [address] | [address] | | | TESTS | | | [...] [facility] | [address] | [place], [place] | | | [facility] | [facility] | [address] | | | TESTS | | | [...] [facility] | [address] | [place] [address] | | | SERVICES, [facility] | [address] | | | + [...] - [facility] | [address] | [place], [place] | | | [facility] | [address] | [address] | | | TESTS | | | [...] + + + + + | [facility] | [address] | [place] [address] | | | SERVICES, CORE | PARK [...] + + + + + | [facility] | [address] | [place] [address] | | | SERVICES, CORE | PARK [...] [facility] | [address] | [place] [address] | | | SERVICES, CORE | PARK [...] | | | LABORATORY | | | PARAGUAYAN | | | SERVICES, | | | [...] + + + + + | [facility] | [address] | [place] [address] | | | SERVICES, CORE | LESLY [...] + + + + + | [facility] | [address] | [place] [address] | | | SERVICES, CORE | PARK [...] [facility] | [address] | [place] [address] | | | SERVICES, CORE | LESLY [...] + + + | [facility] | [address] | [place], [place] | | | [facility] | [address] | [address] | | | TESTS | | | [...] [facility] | [address] | [place], [place] | | | [facility] | [address] | [address] | | | TESTS | | | | + + + + + X-RAY PORTABLE CHEST PICC LINE CHECK (11/09/2015 3:12 PM PDT) + + + + + + | Component | Value | Ref Range | Performed | Pathologist | | | | | At | Signature | + + + + + + | XRAY | EXAM: NC CHEST PICC LINE | | | | [...] and meds | | | Procedure location: Unit:[facility] Room: 13 Providers: PICC Nurse [...] | pause verifies correct patient, procedure, equipment, community support specialist | | | and site/side marked as [...] | area Cephalic vein. Catheter lot number: [id number] with a length of | | | [...] [facility] | [address] | [place], [place] | | | [facility] | [facility] | [address] | | | TESTS | | | [...] [facility] | [address] | [place] [address] | | | SERVICES, CORE | LESLY [...] [facility] | [address] | [place], [place] | | | [facility] | [address] | [address] | | | TESTS | | | [...] | + + + + + | [facility] | [address] | [place] [address] | | | SERVICES, LYDIA | [address]ES[address] [...] [facility] | [address] | [place] [address] | | | LYDIA RANGEL | LESLY [...] [facility] | [address] | [place] [address] | | | SERVICES, CORE | [address] [...] | | | LABORATORY | | | PARAGUAYAN | | | SERVICES, | | | [...] the MDRD equation recommended by the | [facility] | | National Kidney Disease Education Program. [...] [facility] | [address] | [place] [address] | | | LYDIA RANGEL | LESLY [...] [facility] | [address] | [place] | | | [facility] | [address] | [address] | | | TESTS | | | [...] [facility] | [address] | [place], [place] | | | [facility] | [address] | [address] | | | TESTS | | | [...] [facility] | [address] | [place] [address] | | | SERVICES, CORE | PARK [...] | + + + + + | [facility] | [address] | [place] [address] | | | SERVICES, CORE | LESLY [...] + + + + + | [facility] | [address] | [place] [address] | | | SERVICES, LYDIA | [address]ES[address] [...] [facility] | [address] | [place] | | | [facility] | [facility] | [address] | | | TESTS | | | [...] [facility] | [address] | [place] | | | [facility] | [address] | [address] | | | TESTS | | | [...] [facility] | [address] | [place] | | | [facility] | [facility] | [address] | | | TESTS | | | [...] [facility] | [address] | [place] [address] | | | SERVICES, LYDIA | [address] [...] [facility] | [address] | [place] [address] | | | SERVICES, CORE | PARK [...] [facility] | [address] | [place] [address] | | | CLAIRE, CORE | LES[address] [...] [facility] | [address] | [place] [address] | | | SERVICESLYDIA | [address] [...] [facility] | [address] | [place] [address] | | | SERVICES, CORE | P[address] [...] | | | LABORATORY | | | PARAGUAYAN | | | SERVICES, | | | [...] [facility] | [address] | [place] [address] | | | LYDIA RANGEL | LESLY [...] + + + + + | [facility] | [address] | [place] [address] | | | LYDIA RANGEL | LESLY [...] [facility] | [address] | [place], [place] | | | [facility] | [address] | [address] | | | TESTS | | | [...] | [facility] | [address] | [place] [address] | | | SERVICES, CORE | LESLY [...] [facility] | [address] | [place], [place] | | | [facility] | [address] | [address] | | | TESTS | | | [...] - [facility] | [address] | [place], [place] | | | [facility] | [address] | [address] | | | TESTS | | | [...] [facility]PT [facility] | [address] | [place], [place] | | | CARDIOLOGY | [address] | [address] | | + + + + + [...] [facility] | [address] | [place], [place] | | | [facility] | [address] | [address] | | | TESTS | | | [...] | | | LABORATORY | | | PARAGUAYAN | | | SERVICES, | | | [...] + + + + + | [facility] | [address] | [place] [address] | | | SERVICES, CORE | [address] | | | + + + [...] [facility] | [address] | [place] [address] | | | SERVICES, CORE | [address] [...] + + + + + | [facility] | [address] | [place] [address] | | | SERVICES, CORE | LESLY [...] [facility] | [address] | [place], [place] | | | [facility] | [facility] | [address] | | | TESTS | | | [...] [facility] | [address] | [place] [address] | | | SERVICES, CORE | [address]ES[address] [...] [facility] | [address] | [place] [address] | | | LYDIA RANGEL | LESLY [...] [facility] | [address] | [place] [address] | | | SERVICES, CORE | LESLY [...] [facility] | [address] | [place] [address] | | | LYDIA RANGEL | LESLY [...] [facility] | [address] | [place], [place] | | | [facility] | [address] | [address] | | | TESTS | | | [...] [facility] | [address] | [place] [address] | | | SERVICES, CORE | PARK [...] [facility] | [address] | [place] [address] | | | SERVICES, CORE | [address] | | | + + + + + MAGNESIUM, PLASMA (11/07/2015 3:17 AM PDT) + +-------+ + + + | Component | Value | Ref Range | Performed | Pathologist | | | | | At | Signature | + +-------+ + + + | MAGNESIUM,P | 1.9 | 1.8 - 2.5 mg/dL | [facility] [...] + + + + + | [facility] | [address] | [place] [address] | | | SERVICES, CORE | [address] [...] | | | LABORATORY | | | PARAGUAYAN | | | SERVICES, | | | [...] the MDRD equation recommended by the | [facility] | | National Kidney Disease Education Program. 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 | [place], [place] | | | [facility] | [address] | [address] | | | TESTS | | | [...] [facility] | [address] | [place] | | | [facility] | [facility] | [address] | | | TESTS | | | [...] [facility] | [address] | [place] [address] | | | CLAIRE, LYDIA | LESLY [...] [facility]PT OF | [address] | [place], [place] | | | CARDIOLOGY | [address] | [address] | | + + + + + [...] [facility] | [address] | [place] [address] | | | LYDIA RANGEL | LESLY [...] [facility] | [address] | [place] [address] | | | SERVICES, CORE | [address] [...] | | | LABORATORY | | | PARAGUAYAN | | | SERVICES, | | | [...] [facility] | [address] | [place] [address] | | | SERVICES, CORE | [address] | | | + + + + + NT-PRO BNP (11/06/2015 1:31 PM PDT) + +-------+ + + + | Component | Value | Ref Range | Performed | Pathologist | | | | | At | Signature | + +-------+ + + + | NT-PRO BNP | 64 | <125 pg/mL | [facility] | | | | | | LABORATORY [...] + + + + + | [facility] | [address] | [place] [address] | | | SERVICES, CORE | [address] | | | + + + + + ED INFORMATION EXCHANGE (11/06/2015 1:26 PM PDT) + + + + + + | Component | Value | Ref Range | Performed | Pathologist | | | | | At | Signature | + + + + + + | [facility] | [id number] | | [facility] | | | | [id number] | | MEDICAL | | | | [...] | ---- 11/06/2015 | | | 13:25 [facility] | | | [id number]. Referral; Cellulitis 09/28/2015 15:[address] [facility] [facility] [...] | | | | | | -Other penitentiary (current) | | | drug therapy | | | -Allergy status | | | to penicillin ED VISIT COUNT (1 YR.) Visits Location | | | ------ --------- 1 [facility] | | | [facility] 10 | | | Total Note: Visits indicate total known visits. | | | | | | --- | | + + + + + + + + | Performing | Address | City/State/Zipcode | Phone Number | | Organization | | | | + + + + + | [facility] | [address] | [place], [place] | [phone] | | [employer] | [address] | [address] | | + + + + + [...] 4:14 | | | | | dose, [facility] 11/08/15 at 1430 | | PM [...] | | | oral, ONCE, 1 dose, [facility] 11/08/15 | | PM PDT | [...] | | | | ONCE, 1 dose, [facility] 11/08/15 at 1900 | | PM PDT | | | | + +-------+ +--------+---+---+ +---+---+ | | | +---+---+ + +-------+ +--------+---+---+ | potassium chloride (KLOR-CON) | Given | 11/15/19 | 60 mEq | | | | packet 60 mEq 60 mEq, oral, | | 16 9:11 | | | | | ONCE, 1 dose, [facility] 11/15/15 at 0830 | | AM [...] | | | | ONCE, 1 dose, [facility] 11/14/15 at 0845 | | AM PDT [...] | | | | | 1 dose, [facility] 11/06/15 at 2115 | | PM [...]
--- OUTSIDE RECORDS SUMMARY | ~2020-03-26 | XMS | Encounter Summary ---
Demographics + + + | Address | [address] | | | [place] [address] | + + + | Home Phone [...] [place], [place] | | | | | [address] | | + + + + + | Ellie Vang | ECON | Unknown | | + + + + + Care Team Providers + +------+ + | Care Administrative Court Justice Name | Role | Phone | + [...] | | | | | | [facility] | | | | | | [facility] Admitting | | | | | | Desk Located on the | | | | | | 9th floor | | | | | | [place], [place] | | | | | | [address] | | | +--------+ + + + [...] be different from the original. Elzbieta Cristina [id number] Allergies Allergen Reactions Amoxicillin Benadrilina (Diphenhydramine Hcl) [...] - 11/06/2012 10:18 AM PDT Elzbieta Cristina [id number] Allergies Allergen Reactions Amoxicillin Benadrilina (Diphenhydramine Hcl) [...] | | 2019 | cheduled | | [facility] [address] | | | | | | [place], [place] | | | | | | [address] | | | | | | [phone] | | | | | | | [...]
--- OUTSIDE RECORDS SUMMARY | ~2020-03-26 | XMS | Encounter Summary ---
Demographics + + + | Address | [address] | | | [place] [address] | + + + | Home Phone [...] Team Providers + +------+ + | Care Wedding Planning Internship Name | Role | Phone | [...] | specified | MD [address] | [facility] [address] | | | | | diseases of | [address] | [address] | | | | | liver | [place], | [address] | | | | | Procedures | [place] | [place], | | | | | office visit | [address] | [place] [address] | | | | | | Phone: | Phone: | | | | | | [phone] | [phone] | | | | | | Fax: | Fax: | | | | | | [phone] | [phone] | +--------+--------+ + + + + Encounter Details +--------+---------+ + + + | Date | Type | Department | Care Team | Description | +--------+---------+ + + + | 02/15/ | Office | [facility] | [facility], | 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 She reports that approximately 3 [...] well. She is scheduled to see her [facility] atric surgeons within the next [...] right ventricular diastolic dysfunction (HCC) 10/26/2015 Overview: [facility] Last Assessment & Plan: Patient [...] o besity Pickwickian syndrome Recent admission to [facility] for 100lb weight gain- DC on [...] Diabetes mellitus with insulin therapy ([facility]) 12/27/2014 DM (diabetes mellitus) ([facility]) 05/09/2016 Overview: A1c 5.29 Aug 2014 Last [...] with morbid obesity, she is enrolled in [facility] bariatric program. She has lost [...] Plan: TSH WNL 10/2015. She is on [place] thyroid as OP. -TSH WNL -continu e supplementation here Hypoventilation associated with obesity ([facility]) 06/16/2013 Last Assessment & Plan: [facility] Bariatric Program, has lost 50lbs. STEFANO (iron deficiency anemia) 02/03/2019 Overview: Presumed due to menses. Venofer 200 qd x 30 October 2015 [facility] Last Assessment & P sharon: [...] She is to follow-up with surgeons at [facility] as planned. Patient is to [...] RICHEY | | | | | | [place] [address] | | | | | | [phone] | | | | | | | | +--------+ + + + + | 04/18/ | Procedure | Neurology | Camille De La Paz, | | | 2019 | visit | | [address] | | | | | | [place] [address] | | | | | | [phone] | | | | | | | [...]
--- OUTSIDE RECORDS SUMMARY | ~2020-03-26 | XMS | Encounter Summary ---
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
--- OUTSIDE RECORDS SUMMARY | ~2020-03-26 | XMS | Encounter Summary ---
Demographics + + + | Address | [address] | | | [place] [address] | + + + | Home Phone [...] Team Providers + +------+ + | Care Homicide Investigator Name | Role | Phone | + +------+ + PCP | Unavailable | + +------+ + Encounter Details +--------+ + + + + | Date | Type | Department | Care Team | Description | +--------+ + + + + | 02/14/ | Orders Only | [facility] | Augustine Fu MD | | | 2015 | | NEPHROLOGY [place] | [address] [place] | | | | | [address] | [address] [place], [place] | | | | | [place] | [address] | | | | | [address] | | | | | | [phone] | | | +--------+ + + + [...] RICHEY | | | | | | [place] [address] | | | | | | [phone] | | | | | | | | +--------+ + + + + | 04/18/ | Procedure | Neurology | Camille De La Paz | | | 2019 | visit | | MD Saumya MOE | | | | | | REILLY Swain | | | | | | [place] [address] | | | | | | [phone] | | | | | | | [...]
--- OUTSIDE RECORDS SUMMARY | ~2020-03-26 | XMS | Encounter Summary ---
Demographics + + + | Address | [address] | | | [place] [address] | + + + | Home Phone [...] [place], [place] | | | | | [address] | | + + + + + | Ellie Vang | ECON | Unknown | | + + + + + Care Team Providers + +------+ + | Care Corporate Travel Expert Name | Role | Phone | [...] MD,PhD | | | | | [facility] | [address] | | | | | Hospital Admitting | [place], [place] | | | | | Desk Located on the | [address] | | | | | 9th floor | [phone] | | | | | [place], [place] | | | | | | [address] | Graham Honeycutt, | | | | | | [facility] [address] | | | | | | [address] | | | | | | [place], [place] | | | | | | [address] | | | | | | [phone] | | | | | | | [...] | | Endotracheal Tube; 7; Oral; | [facility] | [facility] | | | Cuffed; 06/23/18; 1542 | [...] Postprocedure Evaluation - Milana Robles CRNA - 06/23/2018 4:03 PM PSTFor matting of this note might be different from the original. Elzbieta Cristina [id number] Allergies Allergen Reactions Amoxicillin Unknown Benadrilina [Diphenhydramine [...] Dr. Andie Brian Incisional hernia repair 03/01/2015 [facility]/ Dr. Cantu. Primary fascial closure and scar excision Lap gastric byp, and nilesh-en-y gastroenterostomy w/ nilesh limb 150 cm or less 8 [facility] Temp: 36.1 C (97 F) Heart Rate: 88 Resp: 12 BP: 136/85 SpO2: 100 % Evaluation VS (BP, HR, RR, SpO2, and Temp) and hydration status are stable, ROS including Cards, Resp , Neuro, and GI w/o evidence of adverse effects, Patient personally seen and evaluated for r ecovery from anesthesia care no PONV Pain controlled No Altered mental status Complications No adverse events nesthesia Proce liberty Lopes - Graham Honeycutt CRNA - 06/23/2018 3:28 PM PSTAssociated Order(s): ANE ETTPro cedure Reason for Intubation: For surgical procedure, Location Performed: [place] , Patient was preoxyg enated Mask Ventilation Grade 0 - Ventilation by mask not attempted Intubation Intubation adjuncts: Ramp , Laryngoscopic view: Grade I, Fiberoptics used: Glidescope , Num joyce of Attempts: 1, Positive for EtCO2: Yes, Breath sounds: Bilateral and equal ETT ETT Size: 7 Depth at Lip: 21 Cm Airway leak: No Narrative Attending physically present Attending: JOANN SCHNEIDER GS used r/t suboptimal positioning in hospital bed and dolores for RSI. Performed by GRAHAM GILLILAND nest hesia Preprocedure Evaluation - Joann Schneider MD,PhD - 06/23/2018 2:18 PM PS T Elzbietairma Rinconch [id number] Allergies Allergen Reactions Amoxicillin Unknown Benadrilina [Diphenhydramine Hcl] Hives Parlodel [Bromocriptine] Unknown Blood clots Penicillin Hives NPO:NPO Status: midnight Last Vitals: Temp: 37.4 C (99.3 F) Heart Rate: 90 BP: 116/72 SpO2: 95 % Preg Status/LMP: Patient Active Problem List Diagnosis [...] of Nilesh-en-Y gastric bypass Impaired intestinal absorption Past Surgical History Procedure Laterality Date Tonsillectomy and adenoidectomy Appendectomy, open 2010 Umbilical hernia repair 2010 Treatment of ankle fracture with screws remaining Incision and drainage of wound abscess x2 midline transverse wound s/p open appendectomy 2010 Ventral hernia repair 10/2012 Dr. Andie Brian Incisional hernia repair 03/01/2015 [facility]/ Dr. Cantu. Primary fascial closure and scar excision Lap gastric byp, and nilesh-en-y gastroenterostomy w/ nilesh limb 150 cm or less 8 [facility], Dr Pandey Current Medication List Name Sig Last Dose ASCORBIC ACID (VITAMIN C) 500 MG TABLET Take 500 mg by mouth once daily. Within last 7 da ys ASPIRIN 81 MG TABLET,DELAYED RELEASE Take 81 mg by mouth once daily. 06/22/2018 ATENOLOL 25 MG TABLET Take 25 mg by mouth two times daily. 06/23/2018 BUPRENORPHINE HCL [address] under tongue once daily. 06/22/2018 CALCIUM [id number]-GENIS ORAL Take 2 tablets by mouth two times daily. Within last 7 days CYANOCOBALAMIN(B-12) ER 5,000 MCG TABLET, IMMEDIATE AND EXTEND RELEASE Take by mouth every thirty days. STOOL SOFTENER ORAL Take 200 mg by mouth. ERGOCALCIFEROL (VITAMIN D2) 50,000 UNIT CAPSULE Take 1 capsule by mouth every seven days. MULTIVITAL ORAL Take by mouth. FERROUS GLUCONATE 324 MG (38 MG IRON) TAB (MG DOSING UPDATE) Take 1 tablet by mouth three t imes daily. GABAPENTIN 300 MG CAPSULE Take 300 mg by mouth four times daily. 06/22/2018 HYDROXYZINE PAMOATE 25 MG CAPSULE Take 25 mg by mouth every four hours as needed. PROBIOTIC ORAL Take by mouth. MAGNESIUM OXIDE 400 MG (241.3 MG MAGNESIUM) TABLET Take 400 mg by mouth once daily. Within last 7 days METFORMIN 1,000 MG TABLET See directions below 06/22/2018 OLANZAPINE 15 MG TABLET Take 30 mg by mouth once daily at bedtime. Within last 7 days PAROXETINE 10 MG TABLET Take 20 mg by mouth once daily. 06/22/2018 PHENTERMINE 37.5 MG TABLET Take 1 tablet by mouth once daily in the morning. Administer bef ore breakfast. 06/22/2018 PIROXICAM 10 MG CAPSULE Take 10 mg by mouth once daily. 06/22/2018 PROMETHAZINE 25 MG TABLET Take 0.5 tablets by mouth four times daily as needed for nausea/v omiting. Indications: Post-Operative Nausea and Vomiting 06/22/2018 SPIRONOLACTONE 50 MG TABLET Take 50 mg by mouth once daily. THYROID (PORK) 30 MG TABLET Take 30 mg by mouth once daily. 06/22/2018 TORSEMIDE 100 MG TABLET Take 100 mg by mouth two times daily. Resume half dose for first we ek post opertative 06/22/2018 TRAZODONE 150 MG TABLET Take 150 mg by mouth once daily at bedtime. 06/22/2018 Lab Results Component Value Date RATE 110 02/22/2018 ATRIALRATE 110 02/22/2018 AK 170 02/22/2018 QRS 98 02/22/2018 QT 339 02/22/2018 QTC 475 11/06/2012 PAXIS 44 02/22/2018 RAXIS -54 02/22/2018 TAXIS 14 02/22/2018 EKGDX 11/06/2012 Normal sinus rhythm Normal ECG "I have personally interpreted this report, either alone or with a trainee." Confirmed by CARINA SMITH ([id number]) on 11/06/2012 3:29:04 PM Preoperative Adult Anesthesia Plan Last edited 06/23/18 1417 by Joann Bernal MD,PhD ROS: HPI: Ms. Cristina reports today that she has no changes in her health since seen in preop clinic one week ago. Prior Anesthetic Problems: No Pulmonary: no shortness of breath no cough no stridor no wheezing no Recent Respiratory Infection Pt. Has no asthma no COPD Dx of sleep apnea Uses BiPap/CPAP Cardiovascular: Able to climb at least 1 flight of stairs (16 steps ), reports getting lightheaded. Functional Capacity: Moderate - palpitations and syncope no chest pain CHF (HFpEF, on diuretic, has cardiology follow up.) hypertension (< 130/80) no CAD Sx no valvular problems/murmurs no arrhythmia no Cardiac assist devices no pacemaker/ICD GI/Hepatic: S/P Nilesh en Y, 02/2018, weight loss 54 #, BMI 65.3 no GI Bleed no GERD no liver disease no hepatitis Renal: no renal failure Urology/Circus Artist: Urologic Conditions: nephrolithiasis Endo: Diabetes: type 2 well controlled Endocrine Other (high calcium, being worked up for hyperparathyroidsim) Thyroid:+ hypothyroidism no Hx Corticosteroid Use Neuro/Psych: Stroke, embolic, parlodel caused allergic reaction, age 18 post , no residual deficits Psych Disorder depression and anxiety no pain Musculoskeletal: arthritis Type: osteoarthritis Manifestations: Extremities (Arms, Legs, Hands) and Lumbar-Thoracic spine Additional Comments: No Muscular Disorders Heme/Onc: Pt. has: no active bleeding no bleeding disorder Clotting Disorders (Spontaneous) DVT, on aspirin, PE Hemoglobin Disorders anemia no malignancy Infectious Disease: MRSA (peritoneal post appendectomy 2010) no VRE Skin: no open wounds no skin conditions AutoImmune Disorders: No autoimmune disorders Physical Exam General: Appearance: Age appropriate and Mild distress LOC: Alert HEENT: Normocephalic/Atraumatic and Normal sclerae/conjunctivae Airway: Dentition: dentition is normal missing teeth Date of last Dental Exam: 41.5 Mallampati: 2 Mouth Opening: > 3 cm TM Distance:> [...] deficits noted Skin: Color: skin color normal Other Implanted Devices: Implanted devices: Other Implanted Devices hardware ankle, right [id number] Anesthesia Plan Comments ASA ASA 3 NPO Status NPO Status: NPO by protocol Monitors/Lines to be used Standard Anesthetic Consideration PONV prophylaxis, Premeds, IV when asleep and Preop antibiotics Induction intravenous and rapid sequence induction Anesthetic Technique General; Obstetric Anesthesia Post-Op Pain Plan IV analgesics; Blood Products None; Informed Consent PARQ discussed with: patient, Procedures, Alternatives, Risks, and Questions discussed Dental Risk discussed with patient Code status in [place] Patients Code Status in [place]: FULL 06/23 2:19 PM docum ented in this encounter Miscellaneous Notes PMC/ANE PreOp Note - Joann Schneider MD,PhD - 06/23/2018 2:06 PM PSTROS: HPI: Ms. Cristina reports today that she has no changes in her health since seen in preop clinic on e week ago. Last emesis 1 week ago. Prior Anesthetic Problems: No Pulmonary: no shortness of breath no cough no stridor no wheezing no Recent Respiratory Infectio n Pt. Has no asthma no COPD Dx of sleep apnea Uses BiPap/CPAP Cardiovascular: Able to climb at least 1 flight of stairs (16 steps ), reports getting lightheaded. Functio nal Capacity: Moderate - palpitations and syncope no chest pain CHF (HFpEF, on diuretic, has cardiology follow up .) hypertension (< 130/80) no CAD Sx no valvular problems/murmurs no arrhythmia no Car diac assist devices no pacemaker/ICD GI/Hepatic: S/P Nilesh en Y, 02/2018, weight loss 54 #, BMI 65.3 no GI Bleed no GERD no liver disease no hepatitis Renal: no renal failure Urology/Circus Artist: Urologic Conditions: nephrolithiasis Endo: Diabetes: type 2 well controlled Endocrine Other (high calcium, being worked up for hyper parathyroidsim) Thyroid:+ hypothyroidism no Hx Corticosteroid Use Neuro/Psych: Stroke, embolic, parlodel caused allergic reaction, age 18 post , no residual deficit s Psych Disorder depression and anxiety no pain Musculoskeletal: arthritis Type: osteoarthritis Manifestations: Extremities (Arms, Legs, Hands) and Lumbar-T horacic spine Additional Comments: No Muscular Disorders Heme/Onc: Pt. has: no active bleeding no bleeding disorder Clotting Disorders (Spontaneous) DVT, on aspirin, PE Hemoglobin Disorders anemia no malignancy Infectious Disease: MRSA (peritoneal post appendectomy 2010) no VRE Skin: no open wounds no skin conditions AutoImmune Disorders: No autoimmune disorders Physical Exam General: Appearance: [...] devices: Other Implanted Devices hardware ankle, right MC/A NE PreOp Note - Tiara Mckeon FNP - 06/16/2018 3:17 PM PSTROS: HPI: Prior Anesthetic Problems: No Pulmonary: no [...] renal failure no electrolyte abnormalities no dialysis Urology/Circus Artist: Urologic Conditions: nephrolithiasis Endo: Diabetes: type 2 [...] malignancy Infectious Disease: MRSA (peritoneal post appendectomy 2011) no VRE Skin: no open wounds no skin conditions AutoImmune Disorders: No autoimmune disorders Physical Exam General: Appearance: Healthy, Age appropriate and No [...] devices: Other Implanted Devices hardware ankle, right documented in th is encounter Plan of Treatment +--------+ + + + + | Date | Type | Specialty | Care Team | Description | +--------+ + + + + | 04/04/ | Telephone-S | Surgery | Orquidea Cristobal, | | | 2019 | sherrill | | SPECIALTIES OPERATOR [address] | | | | | | [place], [place] | | | | | | [address] | | | | | | [phone] | | | | | | | [...] | INTRAPROCEDURE PRN, Starting Thu | | PM PST | | [...]
--- OUTSIDE RECORDS SUMMARY | ~2020-03-26 | XMS | Encounter Summary ---
Demographics + + + | Address | [address] | | | [place] [address] | + + + | Home Phone [...] [place], [place] | | | | | [address] | | + + + + + | Ellie Vang | ECON | Unknown | | + + + + + Care Team Providers + +------+ + | Care Shift Leader Name | Role | Phone | [...] | | 2015 | | Preventive at [facility] | [address] | | | | | [address] | [place], [place] | | | | | [facility] | [address] | | | | | and [address], | [phone] | | | | | [place] [address] | | | | | | [place], [place] | | | | | | [address] | | | | | | [phone] | | | +--------+ + + + [...] Corazon Alexis RN - 11/08/2014 12:05 PM [facility] office received a letter (see abstract uploaded under Shereen Pinto 11/06/14). Parul Chan (RN Case [facility] ) is requesting more information regarding the status of Ms Cristina's bariatric surgery. She i s also Requesting Dr Franks's last two visit notes. -Referred back to bariatric surgery department for updates regarding bariatric sugery -Will fax over last 2 visit notes to [phone] signed by Corazon Alexis RN at 11/08/2014 12:16 PM PDTdocumented in this encounter Plan of Treatment +--------+ + + + + | Date | Type | Specialty | Care Team | Description | +--------+ + + + + | 04/04/ | Telephone-S | Surgery | Orquidea Cristobal, | | | 2019 | chesteve | | CAT DRIVER [address] | | | | | | [place], [place] | | | | | | [address] | | | | | | [phone] | | | | | | | | +--------+ + + + + documented as of this encounter Visit Diagnoses Not on filedocumented in this encounter"
--- OUTSIDE RECORDS SUMMARY | ~2020-03-26 | XMS | Encounter Summary ---
Demographics + + + | Address | [address] | | | [place] [address] | + + + | Home Phone [...] [place], [place] | | | | | [address] | | + + + + + | Ellie Vang | ECON | Unknown | | + + + + + Care Team Providers + +------+ + | Care Notch Machine Operator Name | Role | Phone [...] | | Preventive at [facility] | MD [address] | (PHENTERMINE 37.5 mg | | | | [address] | [place], [place] | ) | | | | [facility] | [address] | | | | | and [address], | [phone] | | | | | [place] [address] | | | | | | [place], [place] | | | | | | [address] | | | | | | [phone] | | | +--------+--------+ + + + [...] Seen By Ordering Provider: Last Appointment in [facility] was on 04/13 at 3:39 pm with Randell Franks MD. Follow Up Plan: Next Appointment in [facility] is on 01/07/19 at 9:15 am [...] | | 2019 | cheduhipolito | | BLACKING WHEEL TENDER [address] | | | | | | [place] | | | | | | [address] | | | | | | [phone] | | | | | | | | +--------+ + + + + documented as of this encounter Visit Diagnoses Not on filedocumented in this encounter"
--- OUTSIDE RECORDS SUMMARY | ~2020-03-26 | XMS | Encounter Summary ---
Demographics + + + | Address | [address] | | | [place] [address] | + + + | Home Phone [...] [place], [place] | | | | | [address] | | + + + + + | Ellie Vang | ECON | Unknown | | + + + + + Care Team Providers + +------+ + | Care Mop Worker Name | Role | Phone | [...] | | | [address] | [place], [place] | | | | | [address] | [address] | | | | | [place], | [phone] | | | | | [address] [place] [address], | | | | | | [place] [address] | | | | | | [phone] | | | +--------+ + + + [...] this encounter Miscellaneous Notes Telephone Encounter - Elizaebth Ricci MA - 06/24/2018 11:24 AM PSTFollow [...] | | 2020 | sherrill | | STRUCTURAL STEEL WORKER APPRENTICE [address] | | | | | | [place], [place] | | | | | | [address] | | | | | | [phone] | | | | | | | | +--------+ + + + + documented as of this encounter Visit Diagnoses Not on filedocumented in this encounter
--- OUTSIDE RECORDS SUMMARY | ~2020-03-26 | XMS | Encounter Summary ---
Demographics + + + | Address | [address] | | | [place] [address] | + + + | Home Phone [...] [place], [place] | | | | | [address] | | + + + + + | Ellie Vang | ECON | Unknown | | + + + + + Care Team Providers + +------+ + | Care Higher Level Teaching Assistant Name | Role | Phone | [...] | | 2019 | sherrill | | AMBULANCE DISPATCHER [address] | | | | | | [place], [place] | | | | | | [address] | | | | | | [phone] | | | | | | | | +--------+ + + + + documented as of this encounter Visit Diagnoses Not on filedocumented in this encounter"
--- OUTSIDE RECORDS SUMMARY | ~2020-03-26 | XMS | Encounter Summary ---
Demographics + + + | Address | [address] | | | [place] [address] | + + + | Home Phone [...] [place], [place] | | | | | [address] | | + + + + + | Ellie aVng | ECON | Unknown | | + + + + + Care Team Providers + +------+ + | Care Health Promotion Manager Name | Role | Phone | [...] CHOLECYSTECOMY WITH | | | | Brock [facility] Moreno | Clarence Gutiérrez [place], | INTRA-OP | | | | Hospital Admitting | [place] [address] | CHOLANGIOGRAM | | | | Desk Located on the | [phone] | | | | | 9th floor | | | | | | [place], [place] | | | | | | [address] | | | +--------+---------+ + + + [...] MD [facility] [address] [place] [address] orrMaryam hill MD - 1:05 PM PDT [facility] DEPARTMENT OF SURGERY EMERGENCY GENERAL SURGERY Division of Trauma and Critical Care INPATIENT PROVIDER DISCHARGE SUMMARY Note Date: 02/08/2014 Admission Date: 02/07/2014 DYLNA ROMERO, Discharge Date: 08 Feb 2014 PCP: Fadi Goodrich DO Attending Physician: Milana Landaverde MD Author: MARYAM RHODES MD HPI: Dylan Romero is a 38 y.o. Female with morbid obesity, bipolar disorder and Type 2 DM who presented to the [facility] ED ([place], [place]) on 02/06/14, with a week hi story of RUQ abdominal pain that radiates to her back. There, she was found to have leukocyt osis and multiple tiny, mobile stones, + sonographic Peterson's sign on abdominal ultrasound, concerning for acute cholecystitis. She was givenIV antibiotics (cipro, flagyl) and pain med s, then transferred to [facility] by [facility] for [...] DO. Contact information [address] [place] [address] Follow up with Trauma Emergency General Surgery at [facility] In 4 weeks. (follow up in 2-4 weeks ) Contact information [address] [facility] Mailcode: L223a [facility] [place] [address] Thank you for the [...] MD [facility] [address] [facility] [place] [address] orrMaryam hill MD - 5:17 AM PDT [facility] DEPARTMENT OF SURGERY EMERGENCY GENERAL SURGERY Division [...] tolerated MARYAM RHODES MD PGY-1, General Surgery [phone] pager number [facility] [address] [place] [phone] documented in this encoun ter H&P Notes Milana Landaverde MD - 02/07/2014 3:31 AM PDTI saw and evaluated the patient. I agree with the findings and the plan of care as documented in the resident s note. MILANA [place] MD [facility] [address] [place] [address] Stephanie Esposito MD,MPH - 02/07/2014 3:31 AM PDTFormatting of this note might be different from the origi nal. HISTORY AND PHYSICAL CC: abdominal pain HPI: Dylan Romero is a 38 y.o. Female with morbid obesity, bipolar disorder and Type 2 DM who presented to the [facility] ED ([place], [place]) on 02/06/14, with a week hi story of RUQ abdominal pain that radiates to her back. There, she was found to have leukocyt osis and multiple tiny, mobile stones, + sonographic Peterson's sign on abdominal ultrasound, concerning for acute cholecystitis. She was given iv antibiotics (cipro, flagyl) and pain m eds, then transferred to [facility] by [facility] for further care. Ms. Romero endorses [...] of Migraine Hx of embolic stroke from [facility] (Medication - OSH chart) Arthritis GERD PAST [...] STARR MD [facility] [address] [place] [address] I was present for the entire procedure as described in the note for this encounter. PRADIP STARR MD [facility] [address] [place] [address] Jacquelin Melendez MD - 02/07/2014 7:28 PM [...] MD [facility] [address] [facility] [place] [address] Francisco Snowden MD - 6:44 PM PDTAssociated [...] 0 Initial surgical contact: EGS at pager [phone] documented in this encoun ter Miscellaneous Notes [...] Events of this stay (w/date): Transfer from [place] PmHx: DMII;Migraines; open appy; umbilical hernia repair [...] Events of this stay (w/date): Transfer from [place] PmHx: DMII;Migraines; open appy; umbilical hernia repair [...] source of abdominal pain Discharge plan: TBD andoff - Lissette Sewell RN - 02/07/2014 8:26 PM PDTMeets Phase I Discharge Criteria (Stable For Transfe [...] pain medication information: none Functional Epidural: No RIGHT OF WAY AGENT: No Respiratory: RR: 19, O2 Sat: 96 [...] FC Contact Name: Ellie Vang Contact Number: [phone] Family contacted: Yes Comment: Belongings:in Pt's room can - Other, [facility] ulty - 02/07/2014 9:24 AM PDT can Louise Lobo, Faculty - 02/07/2014 9:04 AM PDT can - Other, Faculty - 02/07/2014 9:04 AM PDT lan of Jaky - Kelly Strauss RN - 02/07/2014 8:12 AM PDTProblem: Case Management Goals Goal: Discharge Needs Met Outcome: Gradual progress toward goal Initial Case Management Note Reason for admission: Dylan Romero is a 38 y.o. Female with morbid obesity, bipolar disorder and Type 2 DM who presented to the [facility] ED ([place], [place]) on 01/24 11/07, with a week history of RUQ abdominal pain that radiates to her back. There, she was fo und to have leukocytosis and multiple tiny, mobile stones, concerning for acute cholecystit is. She was given iv antibiotics (cipro, flagyl) and pain meds, then transferred to [facility] by [facility] for further care. Pre-admission living situation: Lives in [facility] Pre-admission functional status: Hx of obesity Family/support system: Mother, Katalina Insurance/funding in place: [employer] Anticipated case management discharge needs: Will follow for any needs from CM depar tment See MD notes, AVS and any ancillary consultation notes for further discharge or f/u needs. Mary Alice Strauss RN, CM pager [phone] [facility] - Jayant Levine - 02/07/2014 3:04 AM PDTLF req extra help on the pad. Pt is obese. ED Charg e and Patient Transportation advised. [facility] Alexia Neal - 02/07/2014 3:03 AM PDTPt is large, LF12 req uesting extra help to the helipad. 3: 03 AM [facility] Alexia Neal - 02/07/2014 3:00 AM PDTLF12 enr, ETA [...] Events of this stay (w/date): Transfer from [place] PmHx: DMII;Migraines; Lap appy; abdominal hernia repair [...] source of abdominal pain Discharge plan: TBD [facility] Jayant Bello - 02/06/2014 9:24 PM PDTGRP 18 [facility] 02/06/2014 9:14 PM [id number]; Poss. Cholecystitis; Abd pain; Vom & Diarrhea. Morbid obesity 400+lbs. Upper Quad Tenderness. White count [address]. EGS Dr[address] Akhil he Accepts pt REQ 10A. Electronically signed by Jayant mart 02/06/2014 9:16 PM [facility] Jayant Bello - 02/06/2014 8:[address] Renee KHAN. documente d in this encounter Plan of Treatment +--------+ + + + + | Date | Type | Specialty | Care Team | Description | +--------+ + + + + | 04/04/ | Telephone-S | Surgery | Orquidea Cristobal, | | | 2019 | cheduled | | JEWELLERY DESIGNER [address] | | | | | | [place], [place] | | | | | | [address] | | | | | | [phone] | | | | | | | [...] - MARQUAM | [address] | [place], [place] | | | JUSTINE DAWN OF CARE | [facility] | [address] | | | TESTS | | | [...] YAKOVAM | [address] | [place], [place] | | | JUSTINE DAWN OF JAKY | [address] | [address] | | | TESTS | | | [...] AMES | [address] | [place], [place] | | | JUSTINE DAWN OF CARE | [facility] | [address] | | | TESTS | | | [...] MARQUAM | [address] | [place], [place] | | | L[place] POINT OF CARE | [facility] | [address] | | | TESTS | | | [...] [facility] | [address] | [place] [address] | | | SERVICES, | [address] [...] [facility] | [address] | [place] [address] | | | SERVICES, | [address] [...] - MARQU[place] | [address] | [place], [place] | | | [place] | [address] | [address] | | | TESTS | | | [...] [facility] | [address] | [place] [address] | | | SERVICES, CORE | PARK [...] | + + + + + | [facility] | [address] | [place] [address] | | | SERVICES, CORE [...] | + + + + + | [facility] | [address] | [place] [address] | | | SERVICES, CORE | CLARENCE [...] [facility] | [address] | [place] [address] | | | SERVICES, CORE | PARK [...] + + + | [facility] 5[address] Finger | [address] | [place] [address] | | | SERVICES, CORE | CLARENCE [...] - [place] | [address] | [place], [place] | | | [facility] | [facility] | [address] | | | TESTS | | | [...] Ph.D./PathologistT:02/09 | | | | | | /14/rdl [...] pattern. | | | | | | Range Management Specialist | | | | | | [...] | + + + + + | [facility] | [address] | [place] [address] | | | PATHOLOGY | [address] [...]
--- OUTSIDE RECORDS SUMMARY | ~2020-03-26 | XMS | Encounter Summary ---
Demographics + + + | Address | [address] | | | [place] [address] | + + + | Home Phone [...] [place], [place] | | | | | [address] | | + + + + + | Ellie Vang | ECON | Unknown | | + + + + + Care Team Providers + +------+ + | Care Customer Trainer Name | Role | Phone | [...] & | [address] | [address] [facility] | | | | | PELVIS [address] IV | for Health | Hospital, | | | | | CONTRAST | and Healing, | 10th Floor | | | | | | [address] | [place], [place] | | | | | | [place], | [address] | | | | | | [place] | Phone: | | | | | | [address] | [phone] | | | | | | Phone: | Fax: | | | | | | [phone] | [phone] | | | | | | Fax: | | | | | | | [phone] | | +--------+--------+ + + + + [...] Procedures | [address] | [place] [address] | | | | | CT ABDOMEN & | [address] | [address] [facility] | | | | | PEL[facility] | for Health | Hospital, | | | | | CONTRAST | and Healing, | 10th Floor | | | | | | [address] | [place], [place] | | | | | | [place], | [address] | | | | | | [place] | Phone: | | | | | | [address] | [phone] | | | | | | Phone: | Fax: | | | | | | [phone] | [phone] | | | | | | Fax: | | | | | | | [phone] | | +--------+--------+ + + + + Encounter Details +--------+ + + + + | Date | Type | Department | Care Team | Description | +--------+ + + + + | 10/07/ | Hospital | Radiology/Imaging | | | | 2012 | Encounter | Lab at [facility] [address] | | | [address] [facility] for | | | | | | Health and Healing, | | | | | | Building 1, 3rd | | | | | | Floor [facility] [place] | | | | | | [address] | | | | | | [phone] | | | +--------+ + + + [...] | | 2019 | sherrill | | NEWSPAPER PHOTO EDITOR [address] | | | | | | [place], [place] | | | | | | [address] | | | | | | [phone] | | | | | | | [...] 12 | 6 - 20 mg/dL | [facility], | | | | | [...] + + | JUSTINE PE[facility]A | [address] | [place] [address] | | | OF CARE TESTS | | | | + + + + + documented in this encounter Visit Diagnoses + + | Diagnosis | + + | Hernia Hernia of unspecified site of abdominal cavity without mention of obstruction | | or gangrene | + + documented in this encounter"
--- OUTSIDE RECORDS SUMMARY | ~2020-03-26 | XMS | Encounter Summary ---
Demographics + + + | Address | [address] | | | [place] [address] | + + + | Home Phone [...] + | Katalina Padilla | ECON | [address] | | | | | [place], [place] | | | | | [address] | | + + + + + | Ellie Vang | ECON | Unknown | | + + + + + Care Team Providers + +------+ + | Care Major Assembly Lineman Name | Role | Phone | + +------+ + | Kenyatta Cardenas MD | PCP | | + +------+ + Reason for Visit + +--------+ + | Reason | Onset | Comments | | | Date | | + +--------+ + | Refill Request | | PHENTERMINE 37.5 mg | + +--------+ + | Refill Request | 09/06/ | | | | 2020 | | + +--------+ + Encounter Details +--------+ + + + + | Date | Type | Department | Care Team | Description | +--------+ + + + + | 08/28/ | Telephone | Cardiology in | Randell Franks, | Refill Request | | 2020 | | [facility] | [address] | (PHENTERMINE 37.5 mg | | | | [place] at | [place], [place] | ); Refill Request | | | | [place] [address] | [address] | | | | | [facility] | [phone] | | | | | [facility] | | | | | | [place], [place] | | | | | | [address] | | | | | | [phone] | | | +--------+ + + + [...] Telephone Encounter - Eda Morris MA - 09/06/2019 12:37 PM PSTCalled in the phentermine ref ill to pharmacy and informed pt. Through a phone call elephone Encounter - Elida Hernandez - 09/06/2019 12:10 PM PSTPATI ENT QUESTION/CONCERN Person calling: Patient What is the question/concern: Patient is following up on the medication and has called a fe w times now because she is out of the medication. Please place the refill for the patient an d call her once this refill has been completed, since she is anxious. Okay to send MyChart Response? N/A If page indicated, person paged: N/A ~~~ ROUTE TO APPROPRIATE CAR NURSE POOL ~~~ ~~~ IF NURSE PAGED, ROUTE HIGH PRIORITY ~~~ ~~~For patients who were only seen in the hospital and do not yet have an appointment [facility], route to the swimming pool installer of the discharging sales operations. See discharge summary for i nformation~~~ elephone Encounter - Leti Richard - 08/31/2019 8:52 AM PSTPt called to check in on status of medication. Is se farhad Franks on 09/15. P STTelephone Encounter - Rhona Mccullough MA - 08/29/2019 2:40 PM PSTFormatting of this note mi ght be different from the original. Refill Request For: Requested Prescriptions Pending Prescriptions Disp Refills PHENTERMINE 37.5 mg oral tablet [Pharmacy Med Name: Phentermine HCl 37.5 MG Oral Tablet ] 90 tablet 1 Sig: TAKE 1 TABLET BY MOUTH ONCE DAILY IN THE MORNING BEFORE BREAKFAST Patient Last Seen By Ordering Provider: Last Appointment in [place] [address] was on 12/25 11/12 at 3:35 pm with Randell Franks MD. Follow Up Plan: Next Appointment in [facility] is on 09/15/19 at 4:15 pm with Beronica Franks MD. Please review and sign if appropriate documented in this encou nter Plan of Treatment +--------+ + + + + | Date | Type | Specialty | Care Team | Description | +--------+ + + + + | 04/04/ | Telephone-S | Surgery | Orquidea Cristobal, | | | 2019 | cheduled | | ELECTION JUDGE [address] | | | | | | [place], [place] | | | | | | [address] | | | | | | [phone] | | | | | | | | +--------+ + + + + documented as of this encounter Visit Diagnoses Not on filedocumented in this encounter"
--- OUTSIDE RECORDS SUMMARY | ~2020-03-26 | XMS | Encounter Summary ---
Demographics + + + | Address | [address] | | | [place] [address] | + + + | Home Phone [...] [place], [place] | | | | | [address] | | + + + + + | Ellie Vang | ECON | Unknown | | + + + + + Care Team Providers + +------+ + | Care Panel Flow Machine Operator Name | Role | Phone [...] | | | | | | | [facility] and | | | | | | | Healing, | | | | | | | [address] | | | | | | | [place], [place] | | | | | | | [address] | | | | | | | Phone: | | | | | | | [phone] | | | | | | | Fax: | | | | | | | [phone] | +--------+--------+ + + + + Encounter Details +--------+---------+ + + + | Date | Type | Department | Care Team | Description | +--------+---------+ + + + | 06/16/ | Office | Digestive Health | Shereen Georges, | Morbid obesity with | | 2012 | Visit | Center at [facility] [address] | ACNP [address] | BMI of 70 and over, | | | | [address] | Ave [place], [place] | adult (HCC) (Primary | | | | for Health and | [address] | Dx); Vitamin D | | | | Healing, Building [address] | | deficiency disease; | | | | [place], [place] | | Intertriginous | | | | [address] | | candidiasis; | | | | [...] Psychological Evaluation: If your referral is at [facility], pain management will call y ou [...] the time. If your referral is at [facility], they will call y ou in the next week to schedule. She will arrange 8. Nephrology Consult: Please call [facility] ([phone]) and have them send you a urine specimen container. You will need to discuss your kidney stone risk with a nephrology provid er prior to proceeding with gastric bypass. If your referral is at [facility], they will call you in the [...] at the same time: betsy Feldman RN, PLANT SENIOR MANAGER- Nurse Practitioner for Bariatric Surgery [facility] | CH[facility] [address] | [place], [place] | [address] | Potential Contraindications to Bariatric Surgery Age [...] other providers does not guarantee that the [facility] Bariatric Surger y program will deem you a surgical candidate. documented in this encounter Progress Notes Shereen Pinto ACNP - 06/16/2013 1:28 PM PSTFormatting of this note might be different fro m the original. BARIATRIC INITIAL VISIT Provider: Shereen Pinto DNP, DANIELLEP, PLANT SENIOR MANAGER Referring Provider: Dr. Fadi Goodrich, [place] [phone] Reason for Requested Consultation: Initial evaluation for bariatric surgery. Elzbieta Farooq is interested in Frandy en y alfredo tomeka bypass. The pt is here With her sister. Following surgery her mother and sister will care for her, she will Stay in [place] after surgery so that she is close by. She lives in [place]. They have few stairs to get into [...] recently gained weight, she met with our bi data architect today, she has been making poor food [...] none Use of Redux or Phen/fen: no Scientology or cultural reason you would refuse [...] as well , hypertension, hyperlipidemia. Denies CHF, [place], ischemic heart disease, DVT/PE, or pulmonary hypertension. [...] the therapy. 8. Nephrology Consult: Please call [facility] ([phone]) and have them send you a urine specimen container. You will need to discuss your kidney stone risk with a nephrology provid er prior to proceeding with gastric bypass. If your referral is at [facility], they will call you in the next week to schedule. You are at increased risk of renal stones after surgery, with your history of stone, we want to check of oxalate in your urine. You will need a referral to a computer technology trainer If your level is elevated. 9. See [...] soon as possible Shereen Pinto DNP ACNP, PLANT SENIOR MANAGER Nurse Practitioner for Bariatric Surgery [facility] | [facility] [address] | [place], [place] | [address] | Potential Contraindications to Bariatric Surgery Age [...] other providers does not guarantee that the [facility] Bariatric Surger y program will deem [...] | | 2019 | sherrill | | PLANT SENIOR MANAGER [address] | | | | | | [place], [place] | | | | | | [address] | | | | | | [phone] | | | | | | | [...] | | | | | | by [facility],[address] | | | | | | Liliana Martinez, [facility] | | | | | | [address] | | | | | | [phone]. | | | | | | com, [...] at | | | | | | [facility] Test | | | | | | developed and | | | | | | characteristics | | | | | | determined by | | | | | | [facility]. See | | | | | | Compliance Statement B: | | | | | | Whelse/CS | | | | + + + + + + + + | Specimen | + + | Blood - Blood | + + + + + + + | Performing | Address | City/State/Zipcode | Phone Number | | Organization | | | | + + + + + | [facility] | [address] | [place], [place] | | | [facility] | | [address] | | + + + + + [...]
--- OUTSIDE RECORDS SUMMARY | ~2020-03-26 | XMS | Encounter Summary ---
Demographics + + + | Address | [address] | | | [place] [address] | + + + | Home Phone [...] [place], [place] | | | | | [address] | | + + + + + | Ellie Vang | ECON | Unknown | | + + + + + Care Team Providers + +------+ + | Care Medical Sales Name | Role | Phone | + +------+ + | Jorje Hill MD | PCP | | + +------+ + Encounter Details +--------+ + + + + | Date | Type | Department | Care Team | Description | +--------+ + + + + | 08/19/ | Procedure | [address] Intra [address] | | | | 2019 | Pass | [address] | | | | | | [facility] | | | | | | Hospital Admitting | | | | | | Desk Located on the | | | | | | 9th floor | | | | | | [place], [place] | | | | | | [address] | | | +--------+ + + + [...] | | 2020 | abrahamled | | THROUGH OPERATOR [address] | | | | | | [place] | | | | | | [address] | | | | | | [phone] | | | | | | | | +--------+ + + + + documented as of this encounter Visit Diagnoses Not on filedocumented in this encounter"
--- OUTSIDE RECORDS SUMMARY | ~2020-03-26 | XMS | Encounter Summary ---
Demographics + + + | Address | [address] | | | [place] [address] | + + + | Home Phone [...] [place], [place] | | | | | [address] | | + + + + + | Ellie Vang | ECON | Unknown | | + + + + + Care Team Providers + +------+ + | Care Energy Specialist Name | Role | Phone | [...] from Patient; | | 2017 | | [place] [address] | MD [address] | Postoperative | | | | Ave Mailcode: CH4S | [place], [place] | infection | | | | [facility] | [address] | | | | | and Healing, | [phone] | | | | | [place] [address] [facility] | | | | | | [place], [place] | | | | | | [address] | | | | | | [phone] | | | +--------+ + + + [...] back as soon as possible. Routed to [place]. Electronical ly signed by Magdalene Randolph at 04/12/2018 10:39 AM PDTdocumented in this encounter Plan of Treatment +--------+ + + + + | Date | Type | Specialty | Care Team | Description | +--------+ + + + + | 04/04/ | Telephone-S | Surgery | Orquidea Cristobal, | | | 2020 | cheduled | | PEDIATRIC IMMUNOLOGIST [address] | | | | | | [place] | | | | | | [address] | | | | | | [phone] | | | | | | | | +--------+ + + + + documented as of this encounter Visit Diagnoses Not on filedocumented in this encounter"
--- OUTSIDE RECORDS SUMMARY | ~2020-03-26 | XMS | Encounter Summary ---
Demographics + + + | Address | [address] | | | [place] [address] | + + + | Home Phone [...] + + | Author | [facility] | | | and Jeffana | + + + | Organization | [facility] | | | and [...] Providers + +------+ + | Care Pants Busheler Name | Role | Phone | + +------+ + | Jorje Hill | PCP | | + +------+ + Encounter Details +--------+ + + + + | Date | Type | Department | Care Team | Description | +--------+ + + + + | 01/01/ | Orders Only | [facility] | Augustine Fu MD | Hyperparathyroidism | | 2020 | | NEPHROLOGY [place] | [address] [place] | (HCC) (Primary Dx); | | | | [address] [place] | [address] [place], [place] | CKD (chronic kidney | | | | [address] [place], [place] | [address] | disease) stage 2, | | | | [address] | | GFR 60-89 ml/min; | | | | [phone] | | HTN, goal below | | [...] RICHEY | | | | | | [place] [address] | | | | | | [phone] | | | | | | | | +--------+ + + + + | 04/18/ | Procedure | Neurology | Camille De La Paz, | | | 2019 | visit | | MD Saumya MOE | | | | | | [address] | | | | | | [place] [address] | | | | | | [phone] | | | | | | | [...] 01/09/2020, Expires: | | | | | ([facility]) HTN, goal | 01/01/2021 | | | [...] 01/09/2020, Expires: | | | | | ([facility]) HTN, goal | 01/01/2021 | | | [...]
--- OUTSIDE RECORDS SUMMARY | ~2020-03-26 | XMS | Encounter Summary ---
Demographics + + + | Address | [address] | | | [place] [address] | + + + | Home Phone [...] [place], [place] | | | | | [address] | | + + + + + | Ellie Vang | ECON | Unknown | | + + + + + Care Team Providers + +------+ + | Care Chancery Clerk Name | Role | Phone | [...] | 2018 | Visit | Center at [facility] [address] | MD [address] | surgery (Primary | | | | [address] | [place], [place] | Dx); History of | | | | for Health and | [address] | Frandy-en-Y gastric | | | | Healing, Building [address] | [phone] | bypass | | | | [place], [place] | | | | | | [address] | | | | | | [phone] | | | +--------+---------+ + + + [...] to the healing stomach. There are also ad terminal makeup operator complications of poor wound healing and gastric u lcers. These ulcers are started by smoking or using other nicotine products (vapor cigarett es etc). Gastric bypass patients should also avoid NSAIDS(ibuprofen, advil, motrin, naprosyn/naproxe n/aleve) to prevent gastric/marginal ulcers. Please visit with our Assembler Insulator (RD) for instructions about your Bariatric diet, assistance with calorie counts, tips and tricks for working with your diet restrictions, an d recipes after bariatric surgery. Daily yogurt; even just 1 tablespoon twice a day will provide enough probiotics to optimize digestion. Try to use a high-quality, probiotic-dense yogurt (eg Zaria's, Leonides, Stacie reeves Kefir, Esthetics Instructor [employer] Yogurt). Remember to chew your food well, [...] protein daily, and 64 oz water daily. Cadmium Burner just changed diet to he lp her [...] ([facility]) TIA (transient ischemic attack) Tinea [...] by communicating with her mother - Follow Cadmium Burner recommendations to help with nausea (decrease volume, [...] Anisa Dillon MD PGY-1, Red Surgery Pager: [phone] documented in this encounter Plan of Treatment +--------+ + + + + | Date | Type | Specialty | Care Team | Description | +--------+ + + + + | 04/04/ | Telephone-S | Surgery | Orquidea Cristobal, | | | 2020 | cheduled | | CLOTH COVERED HELMET PULLER [address] | | | | | | [place], [place] | | | | | | [address] | | | | | | [phone] | | | | | | | [...]
--- OUTSIDE RECORDS SUMMARY | ~2020-03-26 | XMS | Encounter Summary ---
Demographics + + + | Address | [address] | | | [place] [address] | + + + | Home Phone [...] [place], [place] | | | | | [address] | | + + + + + | Ellie Vang | ECON | Unknown | | + + + + + Care Team Providers + +------+ + | Care End User Support Specialist Name | Role | Phone [...] | 2017 | | Preventive at [facility] | MD [address] | | | | | [address] | [place], [place] | | | | | [facility] | [address] | | | | | and [place], | [phone] | | | | | [place] [address] | | | | | | [facility] [place] | | | | | | [address] | | | | | | [phone] | | | +--------+ + + + [...] bariatric surgery and faxed it to the [facility] Transportation fax # [phone]. I call ed the patient to let [...] Dr. Franks as well as [place] [facility] [place] [place]. It should be faxed to: [facility] Patient needs this done by: As soon as we can Okay to send Mychart Response? n/a The best phone number to reach the patient today is [phone] please call patient when f ax has been sent. ~~~~ ROUTE TO CAR TRIAGE POOL ~~~~~ documented in this en counter Plan of Treatment +--------+ + + + + | Date | Type | Specialty | Care Team | Description | +--------+ + + + + | 04/04/ | Telephone-S | Surgery | Orquidea Cristobal, | | | 2019 | chesteve | | BUTT PRESSER [address] | | | | | | [place], [place] | | | | | | [address] | | | | | | [phone] | | | | | | | | +--------+ + + + + documented as of this encounter Visit Diagnoses Not on filedocumented in this encounter"
--- OUTSIDE RECORDS SUMMARY | ~2020-03-26 | XMS | Encounter Summary ---
Demographics + + + | Address | [address] | | | [place] [address] | + + + | Home Phone [...] [place], [place] | | | | | [address] | | + + + + + | Ellie Vang | ECON | Unknown | | + + + + + Care Team Providers + +------+ + | Care Pipe Insulator Name | Role | Phone | + +------+ + | Fadi Goodrich DO | PCP | | + +------+ + Encounter Details +--------+ + + + + | Date | Type | Department | Care Team | Description | +--------+ + + + + | 07/06/ | Abstract | Dig[facility]ive [facility] | Clinic, Surgery | | | 2016 | | [place] [address] [address] | | | | | | [address] [facility] | | | | | | for Health and | | | | | | [facility] | | | | | | [place], [place] | | | | | | [address] | | | | | | [phone] | | | +--------+ + + + [...] | | 2019 | sherrill | | ADVERTISEMENT DISTRIBUTOR [address] | | | | | | [place], [place] | | | | | | [address] | | | | | | [phone] | | | | | | | | +--------+ + + + + documented as of this encounter Visit Diagnoses Not on filedocumented in this encounter"
--- OUTSIDE RECORDS SUMMARY | ~2020-03-26 | XMS | Encounter Summary ---
Demographics + + + | Address | [address] | | | [place] [address] | + + + | Home Phone [...] [place], [place] | | | | | [address] | | + + + + + | Ellie Vang | ECON | Unknown | | + + + + + Care Team Providers + +------+ + | Care Telephone Instrument Supervisor Name | Role | Phone | [...] | | 2020 | sarahiduled | | HI TEACHER [address] | | | | | | [place], [place] | | | | | | [address] | | | | | | [phone] | | | | | | | | +--------+ + + + + documented as of this encounter Visit Diagnoses Not on filedocumented in this encounter"
--- OUTSIDE RECORDS SUMMARY | ~2020-03-26 | XMS | Encounter Summary ---
Demographics + + + | Address | [address] | | | [place] [address] | + + + | Home Phone [...] [place], [place] | | | | | [address] | | + + + + + | Ellie Vang | ECON | Unknown | | + + + + + Care Team Providers + +------+ + | Care Plate Take Out Worker Name | Role | Phone | + +------+ + | Fadi Goodrich DO | PCP | | + +------+ + Encounter Details +--------+ + + + + | Date | Type | Department | Care Team | Description | +--------+ + + + + | 02/10/ | Abstract | Digestive Health | Hernandez Brian, | | | 2012 | | [place] [address] [address] | [address] [facility] | | | | | [address] [facility] | [facility] | | | | | for [facility] and | [place], [place] | | | | | [facility] 2 | [address] | | | | | [place], [place] | [phone] | | | | | [address] | | | | | | [phone] | | | +--------+ + + + [...] | 2019 | sherrill | | HEAD OF ACQUISITIONS [address] | | | | | | [place], [place] | | | | | | [address] | | | | | | [phone] | | | | | | | | +--------+ + + + + documented as of this encounter Visit Diagnoses Not on filedocumented in this encounter"
--- OUTSIDE RECORDS SUMMARY | ~2020-03-26 | XMS | Encounter Summary ---
Demographics + + + | Address | [address] | | | [place] [address] | + + + | Home Phone [...] [place], [place] | | | | | [address] | | + + + + + | Ellie Vang | ECON | Unknown | | + + + + + Care Team Providers + +------+ + | Care Couples Therapist Name | Role | Phone | [...] | | 2020 | | Center at [facility] [address] | MD [address] | | | | | [facility] | [facility] | | | | | [facility] and | [place], [place] | | | | | [place] [address] | [address] | | | | | [place], [place] | [phone] | | | | | [address] | | | | | | [phone] | | | +--------+ + + + [...] Orquidea Cristobal, | | | 2020 | chetseve | | FIBER OPTIC ASSEMBLER [address] | | | | | | [place] | | | | | | [address] | | | | | | [phone] | | | | | | | | +--------+ + + + + documented as of this encounter Visit Diagnoses Not on filedocumented in this encounter"
--- OUTSIDE RECORDS SUMMARY | ~2020-03-26 | XMS | Encounter Summary ---
Demographics + + + | Address | [address] | | | [place] [address] | + + + | Home Phone [...] [place], [place] | | | | | [address] | | + + + + + | Ellie Vang | ECON | Unknown | | + + + + + Care Team Providers + +------+ + | Care Publicity Director Name | Role | Phone | [...] [place] | | | | | [facility] | [facility] | | | | | [facility] Admitting | [place] [address] | | | | | Desk Located on the | [phone] | | | | | 9th floor | | | | | | [place], [place] | | | | | | [address] | | | +--------+ + + + [...] be different from the original. Elzbieta Cristina [id number] Allergies Allergen Reactions Amoxicillin Benadrilina (Diphenhydramine Hcl) [...] mperature and hydration status are normal Complications SOLAR SYSTEM INSTALLER/Peripheral nerve and Vascular line complications Other: Reports [...] be different from the original. Elzbieta Cristina [id number] Allergies Allergen Reactions Amoxicillin Benadrilina (Diphenhydramine Hcl) [...] Date RATE 96 11/06/2012 ATRIALRATE 96 11/06/2012 IL 164 11/06/2012 QRS 92 11/06/2012 QT 376 11/06/2012 QTC 475 11/06/2012 PAXIS 35 11/06/2012 RAXIS 60 11/06/2012 TAXIS 45 11/06/2012 EKGDX Value: Normal sinus rhythm Normal ECG "I have personally interpreted this report, e ither alone or with a trainee." Confirmed by CARINA SMITH ([id number]) on 11/06/2012 3:29:04 PM Preoperative Adult Anesthesia Plan Last edited 02/07/14 5318 by Andie Hope MD ROS Pertinent HPI: [...] Findings: tone normal Neuro/Psych: alert Integument: Implants: 8356 Anesthesia Plan Comments ASA ASA 3 NPO [...] Easy airway. [facility]/ANE PreOp N ote - Adnie Hope MD - 02/07/2014 3:03 PM PDT [...] | | 2020 | cheduled | | SUPERVISOR ROVING [address] | | | | | | [place], [place] | | | | | | [address] | | | | | | [phone] | | | | | | | [...]
--- OUTSIDE RECORDS SUMMARY | ~2020-03-26 | XMS | Encounter Summary ---
Demographics + + + | Address | [address] | | | [place] [address] | + + + | Home Phone [...] [place], [place] | | | | | [address] | | + + + + + | Ellie Vang | ECON | Unknown | | + + + + + Care Team Providers + +------+ + | Care Salesperson Driver Name | Role | Phone | [...] Medical Records | | 2013 | | [place] [address] [address] | [address] [facility] | Review ([facility] | | | | S [facility] | [facility] | OUTSIDE RECORDS) | | | | for Health and | [place], [place] | | | | | [place] [address] | [address] | | | | | [place], [place] | [phone] | | | | | [address] | | | | | | [phone] | | | +--------+ + + + [...] | 2019 | sherrill | | HEAD BANQUET WAITRESS [address] | | | | | | [place] | | | | | | [address] | | | | | | [phone] | | | | | | | | +--------+ + + + + documented as of this encounter Visit Diagnoses Not on filedocumented in this encounter"
--- OUTSIDE RECORDS SUMMARY | ~2020-03-26 | XMS | Encounter Summary ---
Demographics + + + | Address | [address] | | | [place] [address] | + + + | Home Phone [...] [place], [place] | | | | | [address] | | + + + + + | Ellie Vang | ECON | Unknown | | + + + + + Care Team Providers + +------+ + | Care Feather Stitcher Name | Role | Phone | [...] HERNIA | | 2019 | | [address] | MD Jones [address] | REPAIR | | | | [facility] | [address] | | | | | Hospital Admitting | [place], [place] | | | | | Desk Located on the | [address] | | | | | 9th floor | [phone] | | | | | [place], [place] | | | | | | [address] | | | +--------+---------+ + + + [...] + + + | Blood Pressure | 128/73 | 08/19/2019 1:24 PM | | | | | PST | | + + + + + | Pulse | 74 | 08/19/2019 1:24 PM | | | | | PST | | + + + + + | Temperature | 36.6 C (97.9 F) | 08/19/2019 1:24 PM | | | | | PST | | + + + + + | Respiratory Rate | 18 | 08/19/2019 1:24 PM | | | | | PST | | + + + + + | Oxygen Saturation | 97% | 08/19/2019 1:24 PM | | | | | PST | | + + + + + | Inhaled Oxygen | - | - | | | Concentration | | | | + + + + + | Weight | 120.2 kg (265 lb) | 08/18/2019 1:57 PM | | | [...] underwent laparoscopic antecolic nish-en-y gastric bypass i n 2017, obstructive sleep [...] the gallo. She was transitioned off her BOOK SALESMAN on POD1. She di d have difficulty [...] condition. She will [facility] up at [facility] with Dr. Woo in [...] by mouth once daily at bedtime. CALCIUM [id number]-GENIS ORAL Take 2 tablets by mouth two [...] daily. ASK your doctor about these medications GIS WEB DEVELOPER THYROID 30 mg Tab tab Generic drug: [...] the prescribed narcotic-opioid (e.g. oxycodone, hydrocodone, Vicodin, Manley, Percocet, Dilaudid) as needed. However, Vicodin/Manley and Percocet contain acetam inophen in the [...] Narcotic-opioid pain medications (e.g. oxycodone, hydrocodone, Vicodin, Manley, Percocet, Di laudid) can be constipating, therefore you should take a stool softener on the same day as s tarting your narcotic pain medicine. Options include: Milk of Magnesia: 2 Tablespoons Twice daily Colace (=Docusate): 1 pill Twice daily Miralax: 1 Tablespoon (17 grams) daily (check bottle for mixing instructions) While these are some recommendations, any iwlm-gof-wrfussc stool softener should work, and generics are [...] and plan of care. JONES WOO MD [facility] [address] [place] [address] documented in this encounter Discharge Instructions Discharge [...] hours by calling the surgery office at [phone]. After hours, weekends and holidays, you may call the hospital float operator at [phone] and have the concrete carpenter Green Team for general surgery paged. Discharge Instr - Activity Kelin Hairston MD - 08/23/2019 6:32 AM PSTResume your ignacoi l daily pre-operative activities. It is OK, [...] the gallo. She was transitioned off her BOOK SALESMAN on POD1. She did have dif ficulty [...] dition. She will follow up at the [facility] with Dr. Woo in weeks. She will also follow up in her anticoagulation clinic in the [facility] several days for warfarin m anagement. Discharge [...] the prescribed narcotic-opioid (e.g. oxycodone, hydrocodone, Vicodin, Manley, Percocet, Dilaudid) as needed. However, Vicodin/Manley and Percocet contain acetam inophen in the [...] Narcotic-opioid pain medications (e.g. oxycodone, hydrocodone, Vicodin, Manley, Percocet, Di laudid) can be constipating, therefore you should take a stool softener on the same day as s tarting your narcotic pain medicine. Options include: Milk of Magnesia: 2 Tablespoons Twice daily Colace (=Docusate): 1 pill Twice daily Miralax: 1 Tablespoon (17 grams) daily (check bottle for mixing instructions) While these are some recommendations, any hlmp-nyh-slcvbrq stool softener should work, and generics are fine to use. Increase your fluids, especially your intake of water Increase your activity. Walk frequently. ANTICOAGULATION: We recommend you make an appointment to be seen in your local anticoagulation clinic on Thu08/25/19 to recheck your INR and for ongoing management of your warfarin. FOLLOW-UP: Please call Dr. Woo's office ([phone]) to schedule a follow-up appointment for 2-3 [...] | | 0 | | | | [id number]-[id number]-GEN | mouth two times | | | [...] + + +---------+ + + | thyroid (GIS WEB DEVELOPER | Take 30 mg by mouth | [...] assist PRN. Anticipate discharge michelle Chandler MD [facility], PGY-1 [facility] Elastic Knitter Hand Frame Pager: [phone] signed by Jones Woo MD at 08/22/2019 1:36 PM JHONATANLin Gadiel Leyva MD - 08/21/2019 9:52 AM [...] dc in 2-3 days Gadiel Chandler MD [facility], PGY-1 [facility] Elastic Knitter Hand Frame Pager: [phone] Associated attestation - Jones Woo MD - 08/21/2019 9:57 AM PSTI performed a hist ory and physical examination of the patient and discussed her management with the resident. I reviewed the resident s note and agree with the documented findings and plan of care. JONES WOO MD [facility] [address] [place] [address] Valencia Zamora MD - 08/20/2019 8:42 AM [...] well. - kilgore out today - dc BOOK SALESMAN - ppx lovenox today - therapeutic lovenox [...] care -Multimodal pain control Joselyn Everett MD [facility] General Surgery PGY1 [id number] Gadiel Armstrong MD - 08/19/2019 12:34 PM [...] Gadiel Chandler MD [facility], PGY-1 [facility] Elastic Knitter Hand Frame Pager: [phone] documented in this encounter H&P Notes Jones Woo MD - 08/18/2019 3:54 PM PST DEPARTMENT OF SURGERY [facility] History and Physical Patient: Dylan Romero ([id number]) Date: 08/18/2019 Chief Complaint: Abdominal pain History of Present Illness: Dylan Romero is a 44 yo F with a history of HTN, DM2, R CH F, hypothyroidism, morbid obesity s/p laparoscopic antecolic RYGB 2017, AMARA, bipolar disorde r, depression, anxiety, history of stroke/TIA, DVT, and multiple hernia repairs with a known incarcerated ventral hernia containing bowel who presented with abdominal pain. She is sche duled to undergo ventral hernia repair tomorrow w Dr. Woo. She reports some vomiting the last few days and worsening pain sp driving to [facility] from [employer] Past Surgical History Procedure Laterality Date Tonsillectomy [...] w/ nish limb 150 cm or less [facility], laparoscopic Past Medical History: Diagnosis [...] by mouth twice daily as needed. CALCIUM [id number]-[id number]-GENIS ORAL Sig: Take 2 tablets by mouth [...] file Gets together: Not on file Attends hoahaoism service: Not on file Active member of club or organization: Not on file Attends meetings of clubs or organizations: Not on file Relationship status: Not on file Other Topics Concern Not on file Social History Narrative Updated 11/09/15 She lives in [place] with her mother and her sister (also her caregiver) [facility]. She has 2 grandchildren (age 4 and 7) who live with her daughter and son-in-law Her boyfriend lives in [place] HFpEF, DM2, HTN, Sleep Apnea (unable to tolerate CPAP), Hypothyroidism, Severe Ob[facility] ([facility] weight 495 lbs) Last seen by [...] acute on chronic sp [place]. She is scheduled for surgery tomorrow. Admit [...] exacerbation of her pain with ride from [employer] is unusual. No acu te changes noted on exam or labs. Will plan to admit and control pain overnight and operat e in am. JONES WOO MD [facility] [address] [place] [address] documented in this encounter Consult Notes Megan [...] - Anticoagulation Clinic/Provider: PCP: Dr Davison at [facility], INRs justa han at [facility] Lab Date INR Warfarin Dose 08/23 1.04 [...] make recommendations. Please page clinical ph armacist (#[phone]) or call central inpatient pharmacy ([phone]) with questions. Megan Marx, PharmD Candidate 2019 Associated attestation - Nicholas Davison PharmD - 08/23/2019 8:21 AM PSTI have personally reviewed the patients warfarin dosing and monitoring with the pharmacy intake technician. I agree wi th their assessment and plan as outlined in the note. Thank you, Nicholas Davison, PharmD Clinical Pharmacist [facility] [place] Department of Pharmacy, CR 9-[address] [facility] [address] [place], [place] [address] Pager: [phone] Megan Marx - 08/22/2019 10:06 AM PST [...] - Anticoagulation Clinic/Provider: PCP: Dr Davison at [facility], INRs complet ed at [facility] Lab Date INR Warfarin Dose 08/22 1.08 [...] make recommendations. Please page clinical ph armacist (#[phone]) or call central inpatient pharmacy ([phone]) with questions. eMgan Marx, PharmD Candidate 2019 Associated attestation - Nicholas Davison PharmD - 08/23/2019 8:17 AM PSTI have personally reviewed the patients warfarin dosing and monitoring with the pharmacy intake technician. I agree wi th their assessment and plan as outlined in the note. Thank you, Nicholas Davison PharmD Clinical Pharmacist [facility] [place] Department of Pharmacy, CR [address] [place], [place] [address] Pager: [phone] Nicholas Davison PharmD - 08/20/2019 8:51 AM [...] and make recommendations. Please page clinical pharmacist (#[phone]) or call central inpatient pharmacy ([phone]) with questions Subjective/Objective: Allergies: Benadrilina [diphenhydramine hcl]; [...] note Thanks, Nicholas Davison PharmD Clinical Pharmacist [facility] Department of Pharmacy, CR [address] [place], [place] [address] Pager: [phone] ATANGena Price - 08/18/2019 7:25 PM PST Pharmacy Services: Admission Medication Reconciliation Prior to Admission Medications: Prior to Admission Medications Prescriptions Last Dose Informant Patient Reported? Taking? ALPRAZolam 1 mg oral tablet 08/18/2019 at 05:00 Yes Yes Sig: Take 1 mg by mouth three times daily as needed. CALCIUM CRB&VMK-[id number]-GENIS ORAL 08/17/2019 at PM Yes Yes Sig: [...] 50 mg by mouth once daily. thyroid (GIS WEB DEVELOPER THYROID) 30 mg oral tablet tab 08/17/2019 [...] regarding this information please contact pharmacy, pager [phone] Gena Price PharmD docu mented in this encounter ED Notes Daryn [...] provided to the patient/family: course of care. Mary Suarez RN - 08/18/2019 6:11 PM PSTBed: 16 Expected date: Expected time: Means of arrival: Comments: HW B moving here ixa Cruz MD - 08/18/2019 5:33 PM PSTIPAS(S) Handoff [...] of obesity, chronic large ventral hernia t saundra is chronically incarcerated, scheduled for repair tomorrow [...] Nay Joe MD - 08/19/2019 8:12 PM PSTRyezekiel Joe MD, Faculty Note: I received sign-out [...] Orquidea Parks RN at 08/18/2019 3:26 PM PSTBa, Jackie Dunn MD - 08/18/2019 2:53 P M PST [...] for the last couple of days. Sh e feels like every time she tries to [...] Patient Active Problem List Diagnosis [facility] Priority: 1 Acute DVT (deep venous [...] Myalgia and myositis Bipolar disorder (HCC) Depression Anemia Chronic wound infection of abdomen from 2010 Morbid obesity with body mass index of 70 and over in adult (HCC) Incisional hernia, incarcerated 2012 Hernia of abdominal wall Dizziness Numbness Nausea Abdominal pain Shortness of breath Palpitations Kidney stone Leaking of urine Irregular periods Leg sore Anxiety Sleep apnea Hypothyroidism Morbid obesity (HCC) Past Surgical History Procedure Date Tonsillectomy and [...] nish limb 150 cm or less 03/01/2018 [facility], Dr Pandey Cholecystectomy, laparoscopic Medications Prior to Admission Medications Prescriptions Last Dose Informant Patient Reported? Taking? ALPRAZolam 1 mg oral tablet Yes No Sig: Take 1 mg by mouth twice daily as needed. CALCIUM CRB&AYJ-[id number]-GENIS ORAL Yes No Sig: Take 2 tablets [...] history - former tobacco. Currently living [facility]. Social History Tobacco Use Smoking status: Former [...] they have plans to take her to [facility] [place] tomorrow, will consult them prior to [...] bed New Prescriptions No medications on file Gabino Priest R N - 08/18/2019 1:56 PM PSTPt arrived by ambulance from [place], stating she is scheduled to have hernia surgery with Dr. Woo tomorrow. Reports worsening abd pain today, rates 7/10 and constant, with nausea. Last PO was at 1100 today. Mary Suarez RN - 08/18/2019 1:47 PM PSTBed: HW B Expected date: Expected time: Means of arrival: Comments: [id number] signed by Mary Hess RN at 08/18/2019 [...] shift to promote sleep and rest. (08/22/191952) [facility] IP NURSE HANDOFF: Jiang hospital course [...] RN - 08/22/2019 6:18 PM PSTNursing Handoff [facility] IP NURSE HANDOFF: NURSING ASSESSMENT & [...] pain managed to allow for sleep. (08/21/191929) [facility] IP NURSE HANDOFF: Jiang hospital course [...] Progress to Target: Improving As evidenced by: Dylan's reported severe pain after waking up that [...] bel managed to allow for sleep. (08/20/192015) [facility] IP NURSE HANDOFF: Jiang hospital course [...] Progress to Target: Improving As evidenced by: Dylan's reported severe pain after waking up that was relieved once oxycodone 5-15mg Q4hr PRN was ordered. She slept for approx 4-6 hours overnight and now wants to ensure she stays on top of pain as it gets out of control easily. NURSING ASSESSMENT & RECOMMENDATIONS FORWARD Nursing Assessment of Patient Stability Risk: Moderately stable Recommendations Forward: -Home cpap @ night -Pain controlled with gae80jq Q4hr PRN -VSS -Ad jelena -REG diet -Periwound skin of incisions reddened. Continue to monitor. Lidocaine patch placed on abdom en for severe tenderness. Barriers to discharge: Pain management lan of Care - Micah Nieto, PT - 08/20/2019 3:55 PM PST Physical Therapy Evaluation and Discharge 08/20/2019 3:55 PM Hospital Day: 2 [id number] DYLAN ROMERO Date of : 1975 Start of care: 08/18/2019 Referring/Attending Practitioner: Jones Woo MD Primary/Referral Diagnosis/ICD-9: K43.9 Ventral hernia without obstruction or gangrene E66.01 Severe Morbid obesity (HCC), BMI 88 K46.0 Incarcerated hernia Insurance: [place]or[place] [facility] [place] Plan[place] [facility] [place] / Product Type: Medicaid / [...] to go home, reduce pain Communication: appropriate, swedish Barriers: recurrent hernias Pain: 8/10 at incision site (declines abdominal binder) Vital [...] x1 down per patient request. Outcome Measure: [facility] BASIC MOBILITY Difficulty turning over in [...] A Little - Minimal/Contact Guard Assist/Superv ision [facility] Basic Mobility Total Score 23 Interpretation of [facility] Short Form - Basic Mobility: CMS [...] RN - 08/20/2019 4:13 AM PSTNursing Handoff [facility] IP NURSE HANDOFF: Jiang hospital course [...] by: [place] pain is well controlled with BOOK SALESMAN. She is tolerating well. Recommendations Forward: -Home cpap approved for use in hospital -Pain control with hydromorphone BOOK SALESMAN -Kilgore catheter in place Barriers to discharge: -BOOK SALESMAN for pain control -MIVF -Kilgore catheter p Note - Mary Theodore MD - 08/19/2019 6:26 PM PSTDate of Service: 08/19/2019 Attending Surgeon: Jones Woo MD Equipment Maintenance Tech(s): Nicholas Theodore MD Preoperative Diagnosis: Incarcerated incisional [...] incisional ventral hernia with incarceration. She was janya luated by Dr. Woo and determined to [...] the case. MD Jones Rivera MD NK/MODL /[id number] I was present for the hernia repair JONES WOO MD [facility] [address] [place] [address] rief Op Note - Nicholas Daily MD - 08/19/2019 5:18 PM PST Date of procedure: 08/19/2019 Times Event Time In Procedure Start ThuAug 19, 2019 7230 Location: [facility] Surgeon(s) and Role: * Jones Woo MD - Primary Staff: C Software Engineer: Angelica Ga RN Scrub: ST Dwayne C Software Engineer Relief: Amy Vega RN Scrub Relief: ST Renetta Contact Person: Nicholas Theodore MD Pre Op Dx INCARCERATED INCISIONAL VENTRAL HERNIA CONTAINING BOWEL Post Op Dx: Same Procedure: Primary ventral incisional hernia repair Anesthesia: General + local Estimated Blood Loss: 25 mL Crystalloid: 1.3 L Specimens None Implants/Grafts None Complications: N/A Findings: two hernia defects identified and closed primarily separately, upper midline fasc ial weakness/diastasis but no additional defect superiorly NICHOLAS THEODORE MD avio - Rubia Morgan RN - 08/19/2019 5:04 PM PSTMeets Phase I Discharge Criteria (Stable For Transfer): Major deviations/events or pertinent findings of katey-operative stay: VSS on RA, VILLATORO, AAOx4 . Two abdominal incisions with dermabond. Pt anxious; has spoken with her mom and a friend laci johnson has helped. Anticipated post-op needs/devices/follow up: Advance [...] Additional pain medication information: Functional Epidural: No BOOK SALESMAN: Yes Respiratory: RR: 18 , O2 Sat: 97 % , O2 Delivery: None (room air) Breath Sounds: Ex (amara with BIPAP) ALFRED: LLL: RUL: RLL: AMARA Yes Comment: no apneic breathing noticed Cardiac: BP: 128/73 HR: 74 GI: Nausea/Vomiting Status: No Signs/Symptoms: Interventions: Assessment: Comments: remains NPO : Last void: Kilgore draining Contact Name: Katalina Padilla Contact Number: [phone] (OK to leave message per patient) Family contacted: Yes Comment: Pt has spoken with her mom Belongings: in room andoff - Alberto Osorio RN - 08/19/2019 3:10 AM PSTNursing Handoff [place] IP NURSE HANDOFF: Jiang hospital course events: Dylan Romero is a 44 yo F with a his tory of HTN, DM2, R CHF, hypothyroidism, morbid obesity s/p laparoscopic antecolic RYGB 2018 , AMARA, bipolar disorder, depression, anxiety, history [...] Jackie Asher MD - 08/18/2019 5:47 PM KING ASHER MD, Faculty Note: teaching note not needed ransfer Note - Gadiel Andrews PA-C - 08/18/2019 1:28 PM PSTReferring Provider Name: Dr. Gonzalez Referring Provider Specialty/Clinic: Gen surgery clinic Contact Number: [phone] [address] to contact provider: Pager Callback required?: no Reason for callin44 y/o F w/ incarcerated hernia since January, presenting with acutely worsening pain, concern for ischemic hernia. Arriving by ambulance. Gadiel Hendricks PA-C Department of emergency medicine [phone] signed by Gadiel Hendricks PA-C at 08/18/2019 1:33 PM PSTComm Teresa Jaramillo - 08/18/2019 1:28 PM [id number] Just talked to Dr Woo, he req tx to [facility] due to pt having hernia surg BP 134/84 Sat 98% ra, HR 112 ETA 15 min. documented in this encounter Plan of Treatment +--------+ + + + + | Date | Type | Specialty | Care Team | Description | +--------+ + + + + | 04/04/ | Telephone-S | Surgery | Orquidea Cristobal, | | | 2019 | cheduled | | BOARD LAYER [address] | | | | | | [place], [place] | | | | | | [address] | | | | | | [phone] | | | | | | | [...] | + + + + + | [facility] | [address] | [place] [address] | | | SERVICES, LYDIA | LESLY [...] [facility] | [address] | [place] [address] | | | SERVICES, CORE | PARK [...] [facility] | [address] | [place] [address] | | | SERVICES, CORE | LESLY [...] [facility] | [address] | [place], [place] | | | JUSTINE DAWN OF JAKY | [facility] | [address] | | | TESTS | | | [...] - [facility] | [address] | [place], [place] | | | JUSTINE DAWN OF CARE | [address] | [address] | | | TESTS | | | [...] [facility] | [address] | [place] [address] | | | SERVICES, | [address] [...] [facility] | [address] | [place] [address] | | | SERVICES, | [address] [...] - [place] | [address] | [place], [place] | | | [place] POINT OF CARE | [address] | [address] | | | TESTS | | | [...] | [facility] | | | GRAVITY | [place] performed by | | LABORATORY | | [...] [facility] | [address] | [place] [address] | | | SERVICES, LYDIA | LESLY [...] [facility] | [address] | [place] [address] | | | SERVICES, | [address] [...] [facility] | [address] | [place] [address] | | | SERVICES, CORE | PARK [...] [facility] | [address] | [place] [address] | | | SERVICES, CORE | PARK [...] [facility] | [address] | [place] [address] | | | SERVICES, CORE | PARK [...] | + + + + + | [facility] Access Information Management | [address] | [place] [address] | | | SERVICES, CORE | LESLY [...] | | | LABORATORY | | | COMORAN | | | SERVICES, | | | [...] + + | [facility] | [address] | [place] [address] | | | SERVICES, CORE | [address] | | | + + + + + ED INFORMATION EXCHANGE (08/18/2019 1:47 PM PST) + + | Specimen | + + | | + + + + + | Narrative | Performed At | + + + | COLLECTIVE?NOTIFICATION?08/18/2019 13:47?DYLAN ROMERO?MRN: | COLLECTIVE | | [id number] Criteria Met 5 Visits In 12 Months Has | MEDICAL | | Guidelines PDMP Security and Safety No recent Security Events | [employer] | | currently on file ED Care Guidelines from [facility] [place] | | | Last Updated: 12/06/18 9:53 AM Care Coordination: Receiving | | | mental health services with [facility].? Please contact [facility] for | | | mental health concerns.? Sarah/Toni Centeno: [phone]? | | | Kishan: [phone].? These are guidelines and the provider | | | should exercise clinical judgment when providing care. Care | | | History Medical/Surgical 05/24/19 12:00 AM [facility] | | | Hospital PATIENT HAS AN APT ON 06/16/[address] CARDENAS. | | | 05/11/19 12:[address] [facility] Patient is | | | currently established with [facility]. If patient is seen in | | | the ED during business hours. Please contact CHWs at [facility] | | | Clinic. Care Recommendation: [...] care. 08/23/18 12:00 AM | | | [facility] PATIENT HAS A PCP APT TO ESTABLISH | | | CARE ON 10/04/18 @ 10:00AM WITH DR CARDENAS. Flags | | | [place] Disparity [place] - [place] developed a flag ([place] | | | Disparity Measure) to help support Medicaid members with mental | | | illness. [facility] uses claims data with a 36-month [...] | are updated weekly. / Attributed By: [facility] ([facility]) / | | | Attributed On: [...] MG TABLET | | | 60 W[address]ON JEFFAS 4 0 2019-04-13 BELBUCA [...] (12 | | | mo.) Facility Visits [facility] 1 [facility] and | | | [facility] 2 [facility] 7 Total 10 Note: | | | Visits indicate total known visits. Recent Emergency Department | | | Visit Summary Date Facility City State Type Diagnoses or Chief | | | Complaint Aug 18, 2019 [facility] [place] | | | [place] Emergency 10,800. amr Jun 25, 2019 [facility]. | | | [place] Emergency nursing home (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 | | | Anxiety disorder, unspecified Cellulitis of abdominal wall | | | Acute embolism and thrombosis of deep veins of r up extrem | | | Nicotine dependence, unspecified, uncomplicated Migraine, unsp, | | | not intractable, without status migrainosus Unspecified | | | abdominal pain Allergy status to oth drug/meds/biol subst status | | | Other intermediate designer (current) drug therapy Allergy status to | | | penicillin [facility] [place] [place] [facility] | | | [facility] (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 Prsnl hx of [...] unspecified Jun 01, 2019 | | | [facility] Emergency Headache Allergy | | | status to penicillin Anxiety disorder, unspecified | | | Obesity, unspecified Migraine, unsp, not intractable, without | | | status migrainosus Other fdc (current) drug therapy | | | Allergy status to oth drug/meds/biol subst status nursing home | | | (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 tank terminal gauger (current) use of | | | aspirin May 23, 2019 [facility] [place] Emergency | | | Anxiety disorder, unspecified Acute embolism and thrombosis of | | | deep veins of r up extrem Allergy status to penicillin | | | Other fdc (current) drug therapy Pain in right arm | | | nursing home (current) use of aspirin Allergy status to oth | | | drug/meds/biol subst status May 20, 2019 [facility] | | | [place] Emergency Generalized abdominal pain Allergy | | | status to oth drug/meds/biol subst status Unspecified abdominal | | | pain Anxiety disorder, unspecified Other chronic pain | | | Allergy status to penicillin nursing home (current) use of | | | aspirin Prsnl hx of TIA (TIA), and cereb infrc w/o resid | | | deficits Other fdc (current) drug therapy May 13, | | | 2019 [facility] [place] Emergency | | | [...] and cereb infrc w/o resid deficits Other fdc (current) | | | drug therapy Allergy status to penicillin December 03, 2018 [facility] | | | [facility]. [place] Emergency RIGHT LEG PAIN DUE TO FALL | | | Strain of unsp musc/tend at lower leg level, right leg, init | | | Aug 22, 2018 [facility] [place] Emergency Other | | | fdc (current) drug therapy Upper abdominal pain, | | | unspecified Bariatric surgery status Allergy status to oth | | | drug/meds/biol subst status Noninfective gastroenteritis and | | | colitis, unspecified Obesity, unspecified Anxiety | | | disorder, unspecified tank terminal gauger (current) use of aspirin | | | Allergy status to penicillin Personal history of pulmonary | | | embolism Recent Inpatient Visit Summary No recorded | | | inpatient visits. Care Team Provider Specialty Phone Fax Service | | | Dates Mica Eagle, GABBIE Community Health Worker | | | Jul 03, 2019 - Current JONES DAVISON D.M.D. Dentist: | | | Computer Systems Architect May 23, 2019 - | | | Current Rob Tilley Line Worker/Tapping Machine Operator ([id number]) | | | [phone] Mar 27, 2018 - Current Bernard Cardenas MD Internal | | | Medicine: Pulmonary Disease Aug 23, 2018 - Current | | | [employer] Portal This patient has registered at the [facility] | | | [facility] Emergency Department For more information | | | visit: | | | [email or web address] | | | [email or web address] PLEASE NOTE: 1. Any care recommendations [...] or completeness of information provided. ? 2020 [employer] | | | [employer]. - [email or web address] | | + + + + + [...] on fileED Care Guidelines | | from [facility] Updated: 12/06/18 9:53 AM Care Coordination:Receiving | | mental health services with [facility].? Please contact [facility] for mental health | | concerns.? Sarah/Toni Centeno: [phone]? Kishan: [phone].?These are | | guidelines and the provider should exercise clinical judgment when providing care.Care | | HistoryMedical/Phlhxzax33/29/19 12:[address] [facility] PATIENT HAS AN APT | | ON 06/16/[address] CARDENAS.05/11/19 12:[address] [facility] Patient is | | currently established with [facility]. If patient is seen in the ED during | | business hours. Please contact CHWs at [facility].Care Recommendation:This | | patient has had [...] when providing | | care.08/23/18 12:[address] [facility] PATIENT HAS A PCP APT TO ESTABLISH CARE | | ON 10/04/18 @ 10:00AM WITH DR CARDENAS. Flags [place] ED Disparity Measure - [place] has | | developed a flag ([place] ED Disparity Measure) to help support Medicaid members with | | mental illness. [facility] uses claims data with a 36-month [...] | | updated weekly. / Attributed By: [facility] Authority ([facility]) / Attributed On: | | 08/09/2019 Prescription Drug Report (12 Mo.)Rx DetailsFill Date Drug Description Qty. | | Prescriber CS MED 2019-08-16 HYDROCODONE-ACETAMIN 5-325 MG 10 SAMANTHA TOPONCE, DMD 2 16.667 | | 2019-08-12 ALPRAZOLAM 1 MG TABLET 90 WINSTON DAMON 4 0 2019-08-02 SUDAFED 12HR 120 MG | | CAPLET 30 JONES DAVISON JR. 0 2019-07-26 FENTANYL 12 MCG/HR PATCH 10 BETZY BALDWIN, | | PA-C 2 0 2019-07-12 ALPRAZOLAM 1 MG TABLET 60 WINSTON DAMON 4 0 2019-07-10 SUDOGEST 12 | | [...] 1 MG | | TABLET 60 WINSTON SPAS 4 0 2019-06-03 SUDOGEST 12 HOUR 120 MG CAPLET 30 JONES DAVISON, | | JR. 0 2019-05-27 PHENTERMINE 37.5 MG TABLET 90 ALY FRANKS MD 4 0 2019-05-24 | | FENTANYL 12 MCG/HR PATCH 5 BETZY BALDWIN PA-C 2 0 2019-05-17 SUDOGEST 12 HOUR 120 MG | | CAPLET 30 MARCO APPIAH PA-C 0 2019-05-17 ALPRAZOLAM 1 MG TABLET 60 WISNTON DAMON 4 0 | | 2019-05-14 OXYCODONE [...] 0 E.D. Visit Count (12 mo.)Facility Visits [facility] 1 [facility] | | [facility] 2 [facility] 7 Total 10 Note: Visits indicate | | total known visits. Recent Emergency Department Visit SummaryDate Facility City State | | Type Diagnoses or Chief Complaint Aug 18, 2019 [facility] | | [place] Emergency 10,800. amr Jun 25, 2019 [facility] Emergency | | tank terminal gauger (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 Anxiety disorder, unspecified | | Cellulitis of abdominal wall Acute embolism and thrombosis of deep veins of r up | | extrem Nicotine dependence, unspecified, uncomplicated Migraine, unsp, not | | intractable, without status migrainosus Unspecified abdominal pain Allergy status | | to oth drug/meds/biol subst status Other intermediate designer (current) drug therapy Allergy | | status to penicillin Jun 19, 2019 [facility] [place] Emergency tank terminal gauger | | (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 Prsnl [...] | | intractable, without status migrainosus Other fdc (current) drug therapy | | Allergy status to oth drug/meds/biol subst status tank terminal gauger (current) use of | | anticoagulants nursing home (current) use of aspirin May 23, 2019 [facility] | | [place] Emergency Anxiety disorder, unspecified Acute embolism and thrombosis of | | deep veins of r up extrem Allergy status to penicillin Other fdc (current) | | drug therapy Pain in right arm tank terminal gauger (current) use of aspirin Allergy | | status to oth drug/meds/biol subst status May 20, 2019 [facility] [place] | | Emergency Generalized abdominal pain Allergy status to oth drug/meds/biol subst | | status Unspecified abdominal pain Anxiety disorder, unspecified Other chronic | | pain Allergy status to penicillin tank terminal gauger (current) use of aspirin Prsnl hx | | of TIA (TIA), and cereb infrc w/o resid deficits Other fdc (current) drug | | therapy May 13, 2019 [facility] [place] Emergency | | 10,800. A303 18,400. Bariatric surgery status 18,400. Ventral hernia without | | obstruction or gangrene 18,400. Nausea with vomiting, unspecified 18,400. | | Unspecified abdominal pain 18,400. Nonspecific mesenteric lymphadenitis May 10, 2019 | | [facility] [place] [facility] [place] Emergency Nausea with vomiting, unspecified Solitary | | pulmonary nodule Anxiety disorder, unspecified Ventral hernia without obstruction | | or gangrene Unspecified abdominal pain Diarrhea, unspecified Allergy status to | | oth drug/meds/biol subst status Prsnl hx of TIA (TIA), and cereb infrc w/o resid | | deficits Other fdc (current) drug therapy Allergy status to penicillin November | | 2018 [facility]. [place] Emergency RIGHT LEG PAIN DUE TO FALL | | Strain of unsp musc/tend at lower leg level, right leg, init Aug 22, [address] [facility] [address] [facility] | [facility] [place] Emergency Other intermediate designer (current) drug therapy Upper | | abdominal pain, unspecified Bariatric surgery status Allergy status to oth | | drug/meds/biol subst status Noninfective gastroenteritis and colitis, unspecified | | Obesity, unspecified Anxiety disorder, unspecified nursing home (current) use of | | aspirin Allergy status to penicillin Personal history of pulmonary embolism | | Recent Inpatient Visit SummaryNo recorded inpatient visits. Care TeamProvider Specialty | | Phone Fax Service Dates Eagle Nino [facility]W Community Health Worker | | Jul 03, 2019 - Current JONES DAVISON D.M.D. Dentist: Computer Systems Architect ([id number]) | | [phone] May 23, 2019 - Current Rob Tilley Line Worker/Care | | Coordinator Mar 27, 2018 - Current Bernard Cardenas MD Internal Medicine: | | Pulmonary Disease Aug 23, 2018 - Current UnmetricThis patient has registered | | at the [facility] Emergency Department For more information | | visit: [email or web address] | | PLEASE NOTE: 1. Any care [...] completeness of information | | provided.? 2019 [email or web address] - [email or web address] | | Allergy status to oth drug/meds/biol subst status | | Other fdc (current) drug therapy | | Allergy status to penicillin | | | |Jun 19, 2019 [facility] [place] [facility] [place] Emergency | | tank terminal gauger (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 | | Prsnl [...] | | | |Jun 01, 2019 [facility] [place] [facility] [place] Emergency | | Headache | | Allergy status to penicillin | | Anxiety disorder, unspecified | | Obesity, unspecified | | Migraine, unsp, not intractable, without status migrainosus | | Other fdc (current) drug therapy | | Allergy status to oth drug/meds/biol subst status | | nursing home (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 | | nursing home (current) use of aspirin | | | |May 23, 2019 [facility] [place] [facility] [place] Emergency | | Anxiety disorder, unspecified | | Acute embolism and thrombosis of deep veins of r up extrem | | Allergy status to penicillin | | Other intermediate designer (current) drug therapy | | Pain in right arm | | tank terminal gauger (current) use of aspirin | | Allergy status to oth drug/meds/biol subst status | | | |May 20, 2019 [facility] [place] [facility] [place] Emergency | | Generalized abdominal pain | | Allergy status to oth drug/meds/biol subst status | | Unspecified abdominal pain | | Anxiety disorder, unspecified | | Other chronic pain | | Allergy status to penicillin | | nursing home (current) use of aspirin | | Prsnl hx of TIA (TIA), and cereb infrc w/o resid deficits | | Other intermediate designer (current) drug therapy | | | |May 13, 2019 [facility] [place] Emergency | | 10,800. A303 | | 18,400. Bariatric surgery status | | 18,400. Ventral hernia without obstruction or gangrene | | 18,400. Nausea with vomiting, unspecified | | 18,400. Unspecified abdominal pain | | 18,400. Nonspecific mesenteric lymphadenitis | | | |May 10, 2019 [facility] [place] [facility] [facility] [place] Emergency | | Nausea with vomiting, unspecified | | Solitary pulmonary nodule | | Anxiety disorder, unspecified | | Ventral hernia without obstruction or gangrene | | Unspecified abdominal pain | | Diarrhea, unspecified | | Allergy status to oth drug/meds/biol subst status | | Prsnl hx of TIA (TIA), and cereb infrc w/o resid deficits | | Other fdc (current) drug therapy | | Allergy status to penicillin | | | |December 03, 2018 [facility]. [place] Emergency | | RIGHT LEG PAIN DUE TO FALL | | Strain of unsp musc/tend at lower leg level, right leg, init | | | |Aug 22, 2018 [facility] [place] Emergency | | Other fdc (current) drug therapy | | Upper abdominal pain, unspecified | | Bariatric surgery status | | Allergy status to oth drug/meds/biol subst status | | Noninfective gastroenteritis and colitis, unspecified | | Obesity, unspecified | | Anxiety disorder, unspecified | | nursing home (current) use of aspirin | | Allergy status to penicillin | | Personal history of pulmonary embolism | | | | | | | |Recent Inpatient Visit Summary | |No recorded inpatient visits. | | | |Care Team | |Provider Specialty Phone Fax Service Dates | |Eagle Nino CHW Community Health Worker Jul 03, 2019 - Current | |JONES DAVISON D.M.D. Dentist: Computer Systems Architect May 23, 2 019 - Current | |Treva Rob Line Worker/Tapping Machine Operator Mar 27, 2018 - Current | |Bernard Cardenas MD Internal Medicine: Pulmonary Disease Aug 23, 2018 - Current | | | |[employer] Portal | |This patient has registered at the [facility] and [facility] [place] [facility] Depart[facility] t | |For more information visit: [email or web address] | |PLEASE NOTE: | | 1. Any [...] information provided. | | | |? 2020 [employer]. - [email or web address] | + + + + + + + | Performing | Address | City/State/Zipcode | Phone Number | | Organization | | | | + + + + + | [facility] | [address] | [place], [place] | [phone] | | [employer] | [address] | [address] | | + + + + + [...] | | | | | 2118, Until e 08/23/19 at 1901, | | | | [...] | | | | 08/23/19 at 190, bloating | | | | | | [...]
--- OUTSIDE RECORDS SUMMARY | ~2020-03-26 | XMS | Encounter Summary ---
Demographics + + + | Address | [address] | | | [place] [address] | + + + | Home Phone [...] Organization | [facility] With [facility] [...] Team Providers + +------+ + | Care Restorative Art Embalmer Name | Role | Phone | + +------+ + PCP | Unavailable | + +------+ + Encounter Details +--------+ + + + + | Date | Type | Department | Care Team | Description | +--------+ + + + + | 10/14/ | Orders Only | [facility] | Conversion | | | 2017 | | NEPRHOLOGY [facility] | Transaction, | | | | | [address] | Provider Unknown | | | | | [address] [place], [place] | [phone] | | | | | [address] | | | | | | [phone] | | | +--------+ + + + [...] RICHEY | | | | | | [place] [address] | | | | | | [phone] | | | | | | | | +--------+ + + + + | 04/18/ | Procedure | Neurology | Camille De La Paz, | | | 2019 | visit | | [address] | | | | | | [address] | | | | | | [place] [address] | | | | | | [phone] | | | | | | | [...]
--- OUTSIDE RECORDS SUMMARY | ~2020-03-26 | XMS | Encounter Summary ---
Demographics + + + | Address | [address] | | | [place] [address] | + + + | Home Phone [...] + | Katalina Padilla | ECON | [address] | | | | | [place], [place] | | | | | [address] | | + + + + + | Ellie Vang | ECON | Unknown | | + + + + + Care Team Providers + +------+ + | Care Equal Opportunity Director Name | Role | Phone | [...] | | | | | | [place], [place] | | | | | | [address] | | | | | | [phone] | | | +--------+ + + + [...] | | 2019 | sherrill | | BLANKET WINDER HELPER [address] | | | | | | [facility] [place] | | | | | | [address] | | | | | | [phone] | | | | | | | | +--------+ + + + + documented as of this encounter Visit Diagnoses Not on filedocumented in this encounter"
--- OUTSIDE RECORDS SUMMARY | ~2020-03-26 | XMS | Encounter Summary ---
Demographics + + + | Address | [address] | | | [place] [address] | + + + | Home Phone [...] [place], [place] | | | | | [address] | | + + + + + | Ellie Vang | ECON | Unknown | | + + + + + Care Team Providers + +------+ + | Care Flying Instructor Name | Role | Phone | [...] | | evaluation | | | | [facility] | | | | | | [address] | | | | | | [facility] | | | | | | and Healing, | | | | | | [address] | | | | | | [place], [place] | | | | | | [address] | | | | | | [phone] | | | +--------+ + + + [...] MG TABLET ATENOLOL 50 MG TABLET CALCIUM CRB&ORG-[id number]-GENIS ORAL CYANOCOBALAMIN (VIT B-12) 1,000 MCG TABLET [...] ch as Uber/Lyft), or public transportation. An Uber/Lyft/personal driver does not count as the responsible [...] office hours, call the [facility] forwarder operator at [phone] and ask them to page him or h er. documented in this encounter Miscellaneous Notes Telephone Encounter - Aide Birmingham RN - 06/14/2019 2:19 PM PSTPhone appointment complete d as scheduled. Documentation to be found in the Notes and Trans Encounter tab in [employer]. Elec tronically signed by Trell Walker MD at 06/16/2019 4:13 PM PSTdocumented in this encount er Plan of Treatment +--------+ + + + + | Date | Type | Specialty | Care Team | Description | +--------+ + + + + | 04/04/ | Telephone-S | Surgery | Orquidea Cristobal, | | | 2019 | cheduled | | VALVE ASSEMBLER [address] | | | | | | [place] | | | | | | [address] | | | | | | [phone] | | | | | | | | +--------+ + + + + documented as of this encounter Visit Diagnoses Not on filedocumented in this encounter
--- OUTSIDE RECORDS SUMMARY | ~2020-03-26 | XMS | Encounter Summary ---
Demographics + + + | Address | [address] | | | [place] [address] | + + + | Home Phone [...] [place], [place] | | | | | [address] | | + + + + + | Ellie Vang | ECON | Unknown | | + + + + + Care Team Providers + +------+ + | Care Event Producer Name | Role | Phone | [...] | | Alma Delia Mailcode: CH4S | [facility] | | | | | [facility] | [place], [place] | | | | | and [place], | [address] | | | | | [place] [address] | [phone] | | | | | Floor [place], [place] | | | | | | [address] | | | | | | [phone] | | | +--------+ + + + [...] Dumont - 06/20/2013 9:42 AM PSTJocelynn from [facility] called stat ing pt called them saying she needed to have labs done but didn't know for what or what type of labs. Lab needs us to fax over Diagnosis and Request for appropriate labs on their Reque st form. [phone] fax [phone] ph dequan han in this encounter Plan of Treatment +--------+ + + + + | Date | Type | Specialty | Care Team | Description | +--------+ + + + + | 04/04/ | Telephone-S | Surgery | Orquidea Cristobal, | | | 2020 | cheloveled | | SUPERVISOR DYER [address] | | | | | | [place], [place] | | | | | | [address] | | | | | | [phone] | | | | | | | | +--------+ + + + + documented as of this encounter Visit Diagnoses Not on filedocumented in this encounter"
--- OUTSIDE RECORDS SUMMARY | ~2020-03-26 | XMS | Encounter Summary ---
Demographics + + + | Address | [address] | | | [place] [address] | + + + | Home Phone [...] [place], [place] | | | | | [address] | | + + + + + | Ellie Vang | ECON | Unknown | | + + + + + Care Team Providers + +------+ + | Care Tea Blender Name | Role | Phone | + +------+ + | Fadi Goodrich DO | PCP | | + +------+ + Encounter Details +--------+ + + + + | Date | Type | Department | Care Team | Description | +--------+ + + + + | 12/12/ | Emergency | [facility] Emergency | | | | 2014 - | | Department [address] | | | | | [address] | | | | 05/20/ | | [facility] | | | | 2014 | | [place], [place] | | | | | | [address] | | | | | | [phone] | | | +--------+ + + + [...] documented as of this encounter Miscellaneous Notes Significant Event - Keerthi Clarke MD - 12/13/2014 12:[address] images fro September 2014 and today. Images are essentially unchanged with the exception of very large s tool burden throughout colon today. Recommended enema and Miralax or golytely bowel prep. Referring will contact again if bowel movement does not help with abdominal pain.Electronica paulay signed by Keerthi Clarke MD at 12/13/2014 12:17 AM [facility] Ion Moreno - 12/13/2014 12:[address] from today and in September look the same. No e vidence of obstuction. No BM x 2 weeks per pt. Consult only. [facility] Jason Moreno - 12/12/2014 11:58 PM PDTMorbidly obese, hernia repair at [facility] last January, CT at [facility] a month ago. Now c/o new her niels pain. VS okay. Afebrile. Unable to reduce hernia. Wbc normal. CT shows mild obstruction. Hold for reconnect. o Jason Moreno - 12/12/2014 11:[address] Clarke with EGSElectronica lly signed by Jason Cox at 12/12/2014 11:55 PM PDTdocumented in this encounter Plan of Treatment +--------+ + + + + | Date | Type | Specialty | Care Team | Description | +--------+ + + + + | 04/04/ | Telephone-S | Surgery | Orquidea Cristobal, | | | 2020 | sherrill | | HOLD WORKER [address] | | | | | | [place] | | | | | | [address] | | | | | | [phone] | | | | | | | | +--------+ + + + + documented as of this encounter Visit Diagnoses Not on filedocumented in this encounter"
--- OUTSIDE RECORDS SUMMARY | ~2020-03-26 | XMS | Encounter Summary ---
Demographics + + + | Address | [address] | | | [place] [address] | + + + | Home Phone [...] [place], [place] | | | | | [address] | | + + + + + | Ellie Vang | ECON | Unknown | | + + + + + Care Team Providers + +------+ + | Care Automotive Service Management Teacher Name | Role | Phone | [...] | | 2018 | | [facility] at [facility] | MD [address] | (Phentermine 37.5mg) | | | | [address] | [place], [place] | | | | | [facility] | [address] | | | | | and [place], | [phone] | | | | | [facility] [address] | | | | | | [place], [place] | | | | | | [address] | | | | | | [phone] | | | +--------+ + + + [...] Ordering/Authorizing 11/25/2017 5:10 PM Cardiology Preventive at [facility] Randell Franks MD Medication Detail Disp Refills PHENTERMINE 37.5 mg oral tablet 90 tablet 1 Sig: TAKE ONE TABLET BY MOUTH ONCE DAILY IN THE MORNING BEFORE BREAKFAST Class: Requires Phone In Order: [id number] elephone Encounter - Jason Bonds MA - 11/25/2017 3:08 PM PDTFormatting of this note might be diffe rent from the original. Refill Request for: Requested Prescriptions Pending Prescriptions Disp Refills PHENTERMINE 37.5 mg oral tablet [Pharmacy Med Name: PHENTERMINE 37.5MG TAB] 90 tablet 3 Sig: TAKE ONE TABLET BY MOUTH ONCE DAILY IN THE MORNING BEFORE BREAKFAST Patient Last Seen: Last Appointment in [facility] was on 11/20/17 at 9:35 am wit h Randell Franks MD. Follow Up Plan: Next Appointment in [facility] is on 06/04/18 at 10:35 am with Jessica Franks MD. Please review and sign if appropriate documented in this encounter Plan of Treatment +--------+ + + + + | Date | Type | Specialty | Care Team | Description | +--------+ + + + + | 04/04/ | Telephone-S | Surgery | Orquidea Cristobal, | | | 2020 | cheduled | | ACOUSTICAL MATERIAL WORKER [address] | | | | | | [place], [place] | | | | | | [address] | | | | | | [phone] | | | | | | | | +--------+ + + + + documented as of this encounter Visit Diagnoses Not on filedocumented in this encounter"
--- OUTSIDE RECORDS SUMMARY | ~2020-03-26 | XMS | Encounter Summary ---
Demographics + + + | Address | [address] | | | [place] [address] | + + + | Home Phone [...] | Author | [facility] | | | and Jeffana | + + + | Organization | [facility] | | [...] Providers + +------+ + | Care Dialysis Patient Care Technician Name | Role | Phone | [...] | | CAPRICE SPARKS | [facility] [address] | | | | | [place], [place] | [place] [address] | | | | | [address] | [phone] | | | | | [phone] | | | +--------+ + + + [...] RICHEY | | | | | | [place] [address] | | | | | | [phone] | | | | | | | | +--------+ + + + + | 04/18/ | Procedure | Neurology | Camille De La Paz, | | | 2019 | visit | | MD Saumya MOE | | | | | | [address] | | | | | | [place] [address] | | | | | | [phone] | | | | | | | [...] | | to assess segmental wall motion, [place] visually estimates LVEF | | | >70%. [...] assess | | | segmental wall motion, [place] visually estimates LVEF >70%. RV | | [...] not well visualized. MEASUREMENTS | | | Scientific Informatics Analyst: JESSICA Authenticated by: Edson Cruz DO | [...] to assess | | segmental wall motion, [place] visually estimates LVEF >70%. RV grossly NML. [...] | IVC was not well visualized. MEASUREMENTS Scientific Informatics Analyst: HONEYuthenticated by: | | Edson Jones Date/Time: 01-02-2016 19:12:36 IMPRESSION: 1. See Dictation. | | TDS. Sinus. 2. Cardiac chamber dimensions grossly NML. LV systolic and diastolic | | functions grossly NML, unable to assess segmental wall motion, [place] visually estimates | | LVEF >70%. RV [...] | |MEASUREMENTS | | | | | |Scientific Informatics Analyst: | |Authenticated by: Edson Cruz DO | |Report Date/Time: 01-02-2016 19:12:36 | | | |IMPRESSION: | |1. See Dictation. TDS. Sinus. 2. Cardiac chamber dimensions grossly NML. LV systolic and diastolic functions grossly NML, unable to assess segmental wall motion, [place] visually es rosalind LVEF >70%. RV grossly | |NML. 3. Aortic valve sclerotic, no /AI | | observed. Mitral and Tricuspid valves grossly NML, Pulmonic valve not seen well. Trace T R. 4. No Pericardial effusion. 5. IVC not seen well. | + + documented in this encounter Visit Diagnoses Not on filedocumented in this encounter"
--- OUTSIDE RECORDS SUMMARY | ~2020-03-26 | XMS | Encounter Summary ---
Demographics + + + | Address | [address] | | | [place] [address] | + + + | Home Phone [...] | Organization | [facility] [...] Team Providers + +------+ + | Care Concessions Manager Name | Role | Phone | + +------+ + PCP | Unavailable | + +------+ + Encounter Details +--------+ + + + + | Date | Type | Department | Care Team | Description | +--------+ + + + + | 10/20/ | Orders Only | [facility] | Dharmesh Escobar, | | | 2016 | | NEPHROLOGY [place] | [facility] [address] | | | | [address] | [address] | | | | | [address] [place], [place] | [place] | | | | | [address] | [address] | | | | | [phone] | [phone] | | | | | | | [...] R[place]HEY | | | | | | [place] [address] | | | | | | [phone] | | | | | | | | +--------+ + + + + | 04/18/ | Procedure | Neurology | Camille De La Paz, | | | 2019 | visit | | [address] | | | | | | [address] | | | | | | [place] [address] | | | | | | [phone] | | | | | | | [...]
--- OUTSIDE RECORDS SUMMARY | ~2020-03-26 | XMS | Encounter Summary ---
Demographics + + + | Address | [address] | | | [place] [address] | + + + | Home Phone [...] [place], [place] | | | | | [address] | | + + + + + | Ellie Vang | ECON | Unknown | | + + + + + Care Team Providers + +------+ + | Care Media/Instructional Designer Name | Role | Phone | + +------+ + | Fadi Goodrich DO | PCP | | + +------+ + Encounter Details +--------+ + + + + | Date | Type | Department | Care Team | Description | +--------+ + + + + | 06/09/ | Abstract | Digestive Health | Kathy Feldman, | | | 2012 | | [place] [address] [address] | [place] [address] | | | | | [address] [facility] | [facility] 350 | | | | | for Health and | [place], [place] | | | | | [facility] 2 | [address] | | | | | [place], [place] | [phone] | | | | | [address] | | | | | | [phone] | | | +--------+ + + + [...] | | 2019 | sherrill | | MOBILE UI DESIGNER [address] | | | | | | [place], [place] | | | | | | [address] | | | | | | [phone] | | | | | | | | +--------+ + + + + documented as of this encounter Visit Diagnoses Not on filedocumented in this encounter"
--- OUTSIDE RECORDS SUMMARY | ~2020-03-26 | XMS | Encounter Summary ---
Demographics + + + | Address | [address] | | | [place] [address] | + + + | Home Phone [...] + | Katalina Padilla | ECON | [address] | | | | | [place], [place] | | | | | [address] | | + + + + + | Ellie Vang | ECON | Unknown | | + + + + + Care Team Providers + +------+ + | Care Electrical Troubleshooter Name | Role | Phone | [...] | | | | | | [place], [place] | | | | | | [address] | | | | | | [phone] | | | +--------+ + + + [...] | | 2019 | sherrill | | PEDIATRIC SPORTS MEDICINE SPECIALIST [address] | | | | | | [place], [place] | | | | | | [address] | | | | | | [phone] | | | | | | | | +--------+ + + + + documented as of this encounter Visit Diagnoses Not on filedocumented in this encounter"
--- OUTSIDE RECORDS SUMMARY | ~2020-03-26 | XMS | Encounter Summary ---
Demographics + + + | Address | [address] | | | [place] [address] | + + + | Home Phone [...] [place], [place] | | | | | [address] | | + + + + + | Ellie Vang | ECON | Unknown | | + + + + + Care Team Providers + +------+ + | Care Pantograph Setter Name | Role | Phone | + +------+ + | Fadi Goodrich DO | PCP | | + +------+ + Reason for Visit + + + | Reason | Comments | + + + | Medical Records | Letter from social work case manager. | | Review | | + + + Encounter Details +--------+ + + + + | Date | Type | Department | Care Team | Description | +--------+ + + + + | 11/08/ | Abstract | Digestive Health | Shereen Georges, | Medical Records | | 2014 | | Center at [facility] [address] | [facility] [address] | Review (Letter from | | | | [address] [facility] | [place], [place] | social work case manager. ) | | | | for Health and | [address] | | | | | [facility], [place] [address] | [phone] | | | | | [place], [place] | | | | | | [address] | | | | | | [phone] | | | +--------+ + + + [...] | | 2020 | sherrill | | COMPUTER BUILDER [address] | | | | | | [place] | | | | | | [address] | | | | | | [phone] | | | | | | | | +--------+ + + + + documented as of this encounter Visit Diagnoses Not on filedocumented in this encounter"
--- OUTSIDE RECORDS SUMMARY | ~2020-03-26 | XMS | Encounter Summary ---
Demographics + + + | Address | [address] | | | [place] [address] | + + + | Home Phone [...] [place], [place] | | | | | [address] | | + + + + + | Ellie Vang | ECON | Unknown | | + + + + + Care Team Providers + +------+ + | Care Pediatric Geneticist Name | Role | Phone | + [...] | 2018 | Review | Center at [facility] [address] | ACNP [address] | Recommendations | | | | [address] [facility] | [address] [place], [place] | | | | | [facility] and | [address] | | | | | [facility], [facility] 2 | [phone] | | | | | [place], [place] | | | | | | [address] | | | | | | [phone] | | | +--------+ + + + [...] Optimized. May proceed with surgery. Disposition: 1. [facility] staff will contact patient with next steps. documented in this encounter Plan of Treatment +--------+ + + + + | Date | Type | Specialty | Care Team | Description | +--------+ + + + + | 04/04/ | Telephone-S | Surgery | Orquidea Cristobal, | | | 2020 | sehrrill | | PAINT FACTORY WORKER [address] | | | | | | [place], [place] | | | | | | [address] | | | | | | [phone] | | | | | | | | +--------+ + + + + documented as of this encounter Visit Diagnoses Not on filedocumented in this encounter"
--- OUTSIDE RECORDS SUMMARY | ~2020-03-26 | XMS | Encounter Summary ---
Demographics + + + | Address | [address] | | | [place] [address] | + + + | Home Phone [...] + | Katalina Padilla | ECON | [address] | | | | | [place], [place] | | | | | [address] | | + + + + + | Ellie Vang | ECON | Unknown | | + + + + + Care Team Providers + +------+ + | Care Surgeon Partner Name | Role | Phone | + +------+ + | Jorje Hill MD | PCP | | + +------+ + Encounter Details +--------+ + + + + | Date | Type | Department | Care Team | Description | +--------+ + + + + | 03/18/ | Transcribe | NKECHI alonso [facility] | Transcribe | | | 2019 | Orders | [facility] [address] | Encounter, Provider, | | | | | [address] [place] for | MD [address] | | | | | Health and Healing, | [place] [address] | | | | | Building [address] | | | | | | [place], [place] | | | | | | [address] | | | | | | [phone] | | | +--------+ + + + [...] | | 2019 | cheduled | | GEAR SHAPER SET UP OPERATOR [address] | | | | | | [place], [place] | | | | | | [address] | | | | | | [phone] | | | | | | | | +--------+ + + + + documented as of this encounter Results EGD (04/07/2019 10:53 AM PDT) + + | Specimen | + + | | + + + + + | Narrative | Performed At | + + + | MRN: | [facility] | | [id number] Date: 04/07/2019Patient Name: Elzbieta Curtis #: | ENDOSCOPY | | [id number] of : 1975CSN: [id number] Type: | | | AmbulatoryRoom: Endo 5Procedure: Upper GI | | | endoscopyIndications: Generalized abdominal pain, Nausea | | | with vomitingProviders: TAL LUND MD | | | (Doctor), BERNARDO BERNARD RN (Nurse), | | | GENECREST SLATER (Gang Supervisor Pipe Lines)Referring MD: SYLVIA Kilpatrick | | | KENNY [...] | | | The [employer] [id number] Endoscope #[id number] | | | was introduced through the [...]
--- OUTSIDE RECORDS SUMMARY | ~2020-03-26 | XMS | Encounter Summary ---
Demographics + + + | Address | [address] | | | [place] [address] | + + + | Home Phone [...] [place], [place] | | | | | [address] | | + + + + + | Ellie Vang | ECON | Unknown | | + + + + + Care Team Providers + +------+ + | Care Molder Wax Ball Name | Role | Phone | [...] | | 2013 | | Center at [facility] [address] | IMPACT HAMMER OPERATOR [address] | | | | | [address] [facility] | [facility] 350 | | | | | [facility] and | [place], [place] | | | | | [facility] 2 | [address] | | | | | [place], [place] | [phone] | | | | | [address] | | | | | | [phone] | | | +--------+ + + + [...] istratively closed with the authorization of the [facility] Committee. elephone Encounter - Sheree Arnett MA - 04/17/2014 5:15 PM PDTWill ask our trim crew supervisor to set up appt with our dieti ela. Previously seen Olga Lidia. elephone Encounter - Samanta Hoff - 04/17/2014 4:24 PM PDTPatient calling to seek adv ice on how to lose an extra 25 pounds. She stated she is 392 pounds and is having a hard mitesh e losing anymore weight. She was advised to go on a liquid diet by her precision assembler. Please call back to follow up. Tdocumented in this encounter Plan of Treatment +--------+ + + + + | Date | Type | Specialty | Care Team | Description | +--------+ + + + + | 04/04/ | Telephone-S | Surgery | Orquidea Cristobal, | | | 2020 | cheduled | | KARATE BLACK BELT [address] | | | | | | [place], [place] | | | | | | [address] | | | | | | [phone] | | | | | | | | +--------+ + + + + documented as of this encounter Visit Diagnoses Not on filedocumented in this encounter"
--- OUTSIDE RECORDS SUMMARY | ~2020-03-26 | XMS | Encounter Summary ---
Demographics + + + | Address | [address] | | | [place] [address] | + + + | Home Phone [...] [place], [place] | | | | | [address] | | + + + + + | Ellie Vang | ECON | Unknown | | + + + + + Care Team Providers + +------+ + | Care Harbor Pilot Name | Role | Phone | + +------+ + | Fadi Goodrich DO | PCP | | + +------+ + Encounter Details +--------+ + + + + | Date | Type | Department | Care Team | Description | +--------+ + + + + | 12/31/ | Abstract | Digestive Health | Hernandez Brian, | | | 2012 | | [place] [address] [address] | [address] [facility] | | | | | [address] [facility] | [facility] | | | | | for [facility] and | [place], [place] | | | | | [facility] 2 | [address] | | | | | [place], [place] | [phone] | | | | | [address] | | | | | | [phone] | | | +--------+ + + + [...] | | 2019 | sherrill | | PROOF LOAD MECHANIC [address] | | | | | | [place], [place] | | | | | | [address] | | | | | | [phone] | | | | | | | | +--------+ + + + + documented as of this encounter Visit Diagnoses Not on filedocumented in this encounter"
--- OUTSIDE RECORDS SUMMARY | ~2020-03-26 | XMS | Encounter Summary ---
Demographics + + + | Address | [address] | | | [place] [address] | + + + | Home Phone [...] + | Katalina Padilla | ECON | [address] | | | | | [place], [place] | | | | | [address] | | + + + + + [...] [address] | | | | [address] [facility] | [address] [place], [place] | | | | | Health and Healing, | [address] | | | | | [place] [address] | [phone] | | | | | Floor [place], [place] | | | | | | [address] | | | | | | [phone] | | | +--------+ + + + [...] | | 0 | | | | [id number] | mouth two times | | | [...] | | 2020 | sherrill | | BOOTS AND SHOES SUPERVISOR [address] | | | | | | [place], [place] | | | | | | [address] | | | | | | [phone] | | | | | | | [...]
--- OUTSIDE RECORDS SUMMARY | ~2020-03-26 | XMS | Encounter Summary ---
[...] [place], [place] | | | | | [address] | | + + + + + | Ellie Vang | ECON | Unknown | | + + + + + Care Team Providers + +------+ + | Care Computer Service Technician Name | Role | Phone [...] | | | | | bypass | [place], | [facility], | | | | | Nausea and | [place] | [address] Floor | | | | | vomiting, | [address] | [place], [place] | | | | | intractabili | Phone: | [phone] | | | | | ty of | | Phone: | | | | | vomiting not | Fax: | [phone] | | | | | specified, | [phone] | Fax: | | | | | unspecified | | [phone] | | | | | vomiting | [...] | | | | | | CONTRAST DE | | | | | | | CT SCAN OF | | | | | | | ABDOMEN | | | | | | | CONTRAST DE | | | | | | [...] | | | | | bypass | [place], | [facility], | | | | | Nausea and | [place] | [address]th Floor | | | | | vomiting, | [address] | [place], [place] | | | | | intractabili | Phone: | [phone] | | | | | ty of | | Phone: | | | | | vomiting not | Fax: | [phone] | | | | | specified, | [phone] | Fax: | | | | | unspecified | | [phone] | | | | | vomiting | [...] | | | | | | CONTRAST DE | | | | | | | CT SCAN OF | | | | | | | ABDOMEN | | | | | | | CONTRAST DE | | | | | | [...] | 2019 | Encounter | Services at [facility] | AGACNP [address] | | | | | [address] | [place], [place] | | | | | Lesly Gutiérrez [facility] | [address] | | | | | [address] | [phone] | | | | | [place], [place] | | | | | | [address] | | | | | | [phone] | | | +--------+ + + + [...] | | 0 | | | | [id number] | mouth two times | | | [...] | | 2019 | sherrill | | ORGAN ASSEMBLER [address] | | | | | | [place], [place] | | | | | | [address] | | | | | | [phone] | | | | | | | [...]
--- OUTSIDE RECORDS SUMMARY | ~2020-03-26 | XMS | Encounter Summary ---
Demographics + + + | Address | [address] | | | [place] [address] | + + + | Home Phone [...] [place], [place] | | | | | [address] | | + + + + + | Ellie Vang | ECON | Unknown | | + + + + + Care Team Providers + +------+ + | Care Oral Surgeon Name | Role | Phone | [...] | 2014 | | Preventive at [facility] | MD [address] | | | | | [address] | [place], [place] | | | | | [facility] | [address] | | | | | and [place], | [phone] | | | | | Building [address] | | | | | | [place], [place] | | | | | | [address] | | | | | | [phone] | | | +--------+--------+ + + + [...] | | 2019 | sherrill | | INTERACTIVE MEDIA MARKETING DIRECTOR [address] | | | | | | [place], [place] | | | | | | [address] | | | | | | [phone] | | | | | | | | +--------+ + + + + documented as of this encounter Visit Diagnoses Not on filedocumented in this encounter"
--- OUTSIDE RECORDS SUMMARY | ~2020-03-26 | XMS | Encounter Summary ---
Demographics + + + | Address | [address] | | | [place] [address] | + + + | Home Phone [...] [place], [place] | | | | | [address] | | + + + + + | Ellie Vang | ECON | Unknown | | + + + + + Care Team Providers + +------+ + | Care Household Chores Name | Role | Phone | + [...] | | 2015 | | Center at [facility] [address] | ACNP [address] | | | | | [address] [facility] | e [place], [place] | | | | | [facility] and | [address] | | | | | [facility], [facility] 2 | [phone] | | | | | [place], [place] | | | | | | [address] | | | | | | [phone] | | | +--------+ + + + [...] the patient d oes not understand the geek squad manager instructions and that she is taking in [...] weight loss requirement. I also reviewed the geek squad manager's most recent visit note and told Parul that there was noth ing documented about calorie restriction, that the geek squad manager recommended following the Liver Reduction Diet and [...] covered by her insurance. Parul works for [employer] so I asked if she could make [...] an individual session for Elzbieta with the geek squad manager. I sent a separate [employer] message to our imaging scheduler, RD and GRADER GREEN MEAT re: setting up an individual geek squad manager appt. document ed in this encounter Plan of Treatment +--------+ + + + + | Date | Type | Specialty | Care Team | Description | +--------+ + + + + | 04/04/ | Telephone-S | Surgery | Orquidea Cristobal, | | | 2020 | sherrill | | TECHNICAL DOCUMENT WRITER [address] | | | | | | [place] | | | | | | [address] | | | | | | [phone] | | | | | | | | +--------+ + + + + documented as of this encounter Visit Diagnoses Not on filedocumented in this encounter"
--- OUTSIDE RECORDS SUMMARY | ~2020-03-26 | XMS | Encounter Summary ---
Demographics + + + | Address | [address] | | | [place] [address] | + + + | Home Phone [...] [place], [place] | | | | | [address] | | + + + + + | Ellie Vang | ECON | Unknown | | + + + + + Care Team Providers + +------+ + | Care Bark Spudder Name | Role | Phone | + [...] [address] | | | | | [place] at | [place], [place] | | | | | [place] [address] | [address] | | | | | [facility] | [phone] | | | | | [facility] | | | | | | [place], [place] | | | | | | [address] | | | | | | [phone] | | | +--------+--------+ + + + [...] | | 2019 | sherrill | | MEDICARE COMPLIANCE AUDITOR [address] | | | | | | [place], [place] | | | | | | [address] | | | | | | [phone] | | | | | | | | +--------+ + + + + documented as of this encounter Visit Diagnoses Not on filedocumented in this encounter"
--- OUTSIDE RECORDS SUMMARY | ~2020-03-26 | XMS | Encounter Summary ---
Demographics + + + | Address | [address] | | | [place] [address] | + + + | Home Phone [...] [place], [place] | | | | | [address] | | + + + + + | Ellie Vang | ECON | Unknown | | + + + + + Care Team Providers + +------+ + | Care Credit Specialist Name | Role | Phone | [...] | [facility] | | | with MEDICATION TECH | | hypertension | [address] | [address] | | | | | Right | [address] | [address] | | | | | heart | [place], [place] | [place] for | | | | | failure | [address] | Health and | | | | | ([facility]) Type | Phone: | Healing, | | | | | 2 diabetes | [phone] | Building 2 | | | | | mellitus | Fax: | [place], [place] | | | | | without | [phone] | [address] | | | | | complication | | Phone: | | | | | , with | | [phone] | | | | | long-term | | Fax: | | | | | current use | | [phone] | | | | | of insulin [...] | 2017 | Visit | Center at [facility] [address] | [address] | BMI of 70 and over, | | | | [address] | [place] | adult ([facility]) (Primary | | | | for Health and | [address] | Dx); Diabetes | | | | Healing, Building 2 | | mellitus type 2 | | | | [place], [place] | | without retinopathy | | | | [address] | | ([facility]); | | | | | | Intertriginous | | | | | | candidiasis; PCOS | | | | | | (polycystic ovarian | | | | | | syndrome); AMARA | | | | | | treated with BiPAP; | | | | | | Chronic diastolic | | | | | | heart failure ([facility]); | | | | | | Essential [...] 10/30/2017 10:00 AM PDTPlease visit with our [facility] Pci Security Consultant (RD) for instructions about your Bariatric diet, assistance with calorie c ounts, tips and tricks for working with your diet restrictions, and recipes after bariatric surgery. Daily yogurt; even just 1 tablespoon twice a day will provide enough probiotics to optimize digestion. Try to use a high-quality, probiotic-dense yogurt (eg Zaria's, Kobifield, Lif eway Kefir, Role Player Dukekooldiner Czech Yogurt). Remember to chew your food well, [...] to the healing stomach. There are also roasterman complications of poor wound healing and gastric [...] 1 tablet by mouth once daily CALCIUM CRB&ZSA-J3-EMA33-GENIS ORAL Take 2 tablets by mouth two [...] History Narrative Updated 11/09/15 She lives in [place] with her mother and her sister (also her caregiver) lives in an artment/duplex below. She has 2 grandchildren (age 4 and 7) who live with her daughter and son-in-law Her boyfriend lives in [place] HFpEF, DM2, HTN, Sleep Apnea (unable to [...] program here and refer her to our range management specialist who also has expertise in [...] a 4-5% rate of reoperation over the roasterman (i.e. years), as well as other late [...] and may approach 5%. We reviewed the [facility] consent form. We discussed that we [...] and manage and supervise all care delivered. W e discussed the fact that if we encounter [...] CASTANON MD. documented in this en counter Miscellaneous Notes Addendum Note - Ion Castanon MD - 10/30/2017 10:00 AM PDT Addended by: ION CASTANON MD on: 11/03/2017 12:08 PM Modules accepted: Orders, SmartSet documented in this encounter Plan of Treatment +--------+ + + + + | Date | Type | Specialty | Care Team | Description | +--------+ + + + + | 04/04/ | Telephone-S | Surgery | Orquidea Cristobal, | | | 2020 | sherrill | | DEVELOPMENT DIRECTOR [address] | | | | | | [place], [place] | | | | | | [address] | | | | | | [phone] | | | | | | | [...] | | | | | determined by [employer] | | | | | | Laboratories. See | | | | | | Compliance Statement B: | | | | | | Student Designed.[employer]/CSPerformed | | | | | | by [employer],[address] | | | | | | Liliana Martinez, [facility] [place] | | | | | | [address] | | | | | | [phone].[employer]. | | | | | | com, [...] [facility] | [address] | [place], [place] | | | [facility] | | [address] | | + + + + + [...] | | | LABORATORY | | | [facility] [place] | | | SERVICES, | | | [...] the MDRD equation recommended by the | [facility] | | National Kidney [...] [facility] | [address] | [place] [address] | | | SERVICES, CORE | PARK [...] [facility] | [address] | [place] [address] | | | SERVICES, CORE | PARK [...] [facility] | [address] | [place] [address] | | | SERVICES, CORE | PARK [...] + + + + | [facility] | [address] | [place] [address] | | | SERVICES, CORE | CLARENCE [...] [facility] | [address] | [place] [address] | | | SERVICES, CORE | CLARENCE [...] NKE[facility]I ROBERTS | [address] | [place] [address] | | | SERVICES, CORE | [address] | | | + + + + + documented in this encounter Visit Diagnoses + + | Diagnosis | + + | Morbid obesity with BMI of 70 and over, adult ([facility]) - Primary | + + | Diabetes mellitus type 2 without retinopathy ([facility]) Type II or unspecified type | | [...]
--- OUTSIDE RECORDS SUMMARY | ~2020-03-26 | XMS | Encounter Summary ---
Demographics + + + | Address | [address] | | | [place] [address] | + + + | Home Phone [...] [place], [place] | | | | | [address] | | + + + + + | Ellie Vang | ECON | Unknown | | + + + + + Care Team Providers + +------+ + | Care Director Agricultural Services Name | Role | Phone | + +------+ + | Fadi Goodrich DO | PCP | | + +------+ + Encounter Details +--------+---------+ + + + | Date | Type | Department | Care Team | Description | +--------+---------+ + + + | 01/11/ | Office | Digestive Health | | Morbid obesity (HCC) | | 2018 | Visit | Center at [facility] [address] | | (Primary Dx) | | | | [facility] | | | | | | for Health and | | | | | | Healing, Building 2 | | | | | | [place], [place] | | | | | | [address] | | | | | | [phone] | | | +--------+---------+ + + + [...] of Class: 1055 until 1155 (60 minutes tjie-yy-edic with patient) Teaching Methods: PowerPoint and verbal [...] a journal with fluid/protein d. Transportation 7. [place] for Successful Weight Loss Surgery 8. Surgical [...] | | 2019 | chesteve | | EMBOSSING CLERK [address] | | | | | | [place], [place] | | | | | | [address] | | | | | | [phone] | | | | | | | | +--------+ + + + + documented as of this encounter Visit Diagnoses + + | Diagnosis | + + | Morbid obesity (HCC) - Primary Morbid obesity | + + documented in this encounter"
--- OUTSIDE RECORDS SUMMARY | ~2020-03-26 | XMS | Encounter Summary ---
Demographics + + + | Address | [address] | | | [place] [address] | + + + | Home Phone [...] [place], [place] | | | | | [address] | | + + + + + | Ellie Vang | ECON | Unknown | | + + + + + Care Team Providers + +------+ + | Care Sider Mechanic Name | Role | Phone | [...] [id number] | | | | | | [facility] | | | | | | [place], [place] | | | | | | [address] | | | | | | [phone] | | | +--------+ + + + [...] | | 2019 | sherrill | | BAND SEWER [address] | | | | | | [place], [place] | | | | | | [address] | | | | | | [phone] | | | | | | | | +--------+ + + + + documented as of this encounter Visit Diagnoses Not on filedocumented in this encounter"
--- OUTSIDE RECORDS SUMMARY | ~2020-03-26 | XMS | Encounter Summary ---
Demographics + + + | Address | [address] | | | [place] [address] | + + + | Home Phone [...] [place], [place] | | | | | [address] | | + + + + + | Ellie Vang | ECON | Unknown | | + + + + + Care Team Providers + +------+ + | Care Corporate Intern Name | Role | Phone | [...] [address] | | | | | [facility] | Ave [place], [place] | | | | | Health and Healing, | [address] | | | | | [place] [address] [facility] | [phone] | | | | | Floor [place], [place] | | | | | | [address] | | | | | | [phone] | | | +--------+ + + + [...] | | 0 | | | | CRB&TUR-K0-RFL76-GEN | mouth two times | | | [...] | | 2020 | cheduled | | ONION TIER [address] | | | | | | [place], [place] | | | | | | [address] | | | | | | [phone] | | | | | | | [...] + + + | EXAM: Esophagram with senior microsoft consultant radiograph HISTORY: RYGB 03/01/2018, | [facility] | | vomiting/pain ever since COMPARISON: 04/27/2018 CT TECHNIQUE: | RADIOLOGY VOICE | | Brand Inspector radiograph was performed. Single contrast exam of the esophagus, | RECOGNITION 2 | | gastric pouch, and gastrojejunostomy in upright positioning. | | | Radiation dose reduction technique was maximized where appropriate | | | using pulsed fluoroscopy and fluoro-store images. Fluoro Time 57 | | | second(s) FINDINGS: Brand Inspector shows stone in the upper pole [...] AM PST EXAM: Esophagram | | with senior microsoft consultant radiograph HISTORY: RYGB 03/01/2018, vomiting/pain ever since COMPARISON: | | 04/27/2018 CT TECHNIQUE: Brand Inspector radiograph was performed. Single contrast exam of the | | esophagus, gastric pouch, and gastrojejunostomy in upright positioning. Radiation dose | | reduction technique was maximized where appropriate using pulsed fluoroscopy and | | fluoro-store images. Fluoro Time 57 second(s) FINDINGS:Brand Inspector shows stone in the upper | [...]
--- OUTSIDE RECORDS SUMMARY | ~2020-03-26 | XMS | Encounter Summary ---
Demographics + + + | Address | [address] | | | [place] [address] | + + + | Home Phone [...] [place], [place] | | | | | [address] | | + + + + + | Ellie Vang | ECON | Unknown | | + + + + + Care Team Providers + +------+ + | Care Inner Tube Cutter Name | Role | Phone | [...] [facility] | Chilo | Yamil | | 2019 | | Center at [facility] [address] | MD Jorje [address] | | | | | [facility] | [facility] | | | | | [facility] and | [place], [place] | | | | | [place] [address] | [address] | | | | | [place], [place] | [phone] | | | | | [address] | | | | | | [phone] | | | +--------+ + + + [...] | | 2020 | abrahamled | | PALEOBOTANIST [address] | | | | | | [place], [place] | | | | | | [address] | | | | | | [phone] | | | | | | | | +--------+ + + + + documented as of this encounter Visit Diagnoses Not on filedocumented in this encounter"
--- OUTSIDE RECORDS SUMMARY | ~2020-03-26 | XMS | Encounter Summary ---
Demographics + + + | Address | [address] | | | [place] [address] | + + + | Home Phone [...] Providers + +------+ + | Care Bakery Team Leader Name | Role | Phone [...] | 01/04/ | Documentati | [facility] | [place], | Results (01/04/20) | | 2020 | on | NEPHROLOGY JESUS | [facility] | | | | | [address] | Test Lead Application Testing | | | | | [address] [place] | | | | | | [address] | | | | | | [phone] | | | +--------+ + + + [...] RICHEY | | | | | | [place] [address] | | | | | | [phone] | | | | | | | | +--------+ + + + + | 04/18/ | Procedure | Neurology | Camille De La Paz, | | | 2019 | visit | | [address] | | | | | | [address] | | | | | | [place] [address] | | | | | | [phone] | | | | | | | [...]
--- OUTSIDE RECORDS SUMMARY | ~2020-03-26 | XMS | Encounter Summary ---
Demographics + + + | Address | [address] | | | [place] [address] | + + + | Home Phone [...] [place], [place] | | | | | [address] | | + + + + + | Ellie Vang | ECON | Unknown | | + + + + + Care Team Providers + +------+ + | Care Lan Analyst Name | Role | Phone | [...] [address] | | | | | ([facility]) | [address] | [address] | | | | | Procedures | [place], [place] | [place], [place] | | | | | CONSULT TO | [address] | [address] | | | | | CAR | Phone: | Phone: | | | | | PREVENTATIVE | [phone] | [phone] | | | | | [facility] - | Fax: | Fax: | | | | | LIPIDS | [phone] | [phone] | +--------+--------+ + + + + Reason [...] | | 2 diabetes | [place], | [place], [place] | | | | | mellitus | [place] [address] | [address] | | | | | without | Phone: | Phone: | | | | | complication | [phone] | [phone] | | | | | (HCC) | Fax: | Fax: | | | | | Procedures | [phone] | [phone] | | | | | NM EST [...] | 2017 | Visit | Preventive at [facility] | MD [address] | hypertension | | | | [address] | [facility] [place] | (Primary Dx); Right | | | | [facility] | [address] | heart failure (HCC) | | | | and Healing, | [phone] | | | | | Building [address] | | | | | | [place], [place] | | | | | | [address] | | | | | | [phone] | | | +--------+---------+ + + + [...] 1 tablet by mouth once daily CALCIUM CRB&RIW-Z0-TPP05-GENIS ORAL Take 2 tablets by mouth two [...] | 2019 | cheduled | | ASSISTANT PURCHASING MANAGER [address] | | | | | | [place], [place] | | | | | | [address] | | | | | | [phone] | | | | | | | | +--------+ + + + + documented as of this encounter Visit Diagnoses + + | Diagnosis | + + | Essential hypertension - Primary | + + | Right heart failure (HCC) Congestive heart failure, unspecified | + + documented in this encounter
--- OUTSIDE RECORDS SUMMARY | ~2020-03-26 | XMS | Encounter Summary ---
Demographics + + + | Address | [address] | | | [place] [address] | + + + | Home Phone [...] [place], [place] | | | | | [address] | | + + + + + | Ellie Vang | ECON | Unknown | | + + + + + Care Team Providers + +------+ + | Care Garage Door Service Technician Name | Role | Phone [...] | | | | | essential | [address] | [address] | | | | | hypertension | [address], | Ave | | | | | Type II or | [address] | [place], [place] | | | | | unspecified | [place], [place] | [address] | | | | | type | [address] | Phone: | | | | | diabetes | Phone: | [phone] | | | | | mellitus | [phone] | Fax: | | | | | without | Fax: | [phone] | | | | | mention of | [phone] | | | | | | complication [...] | 2013 | Visit | Preventive at [facility] | MD [address] | mellitus (HCC) | | | | [address] | [place], [place] | (Primary Dx) | | | | [facility] | [address] | | | | | and Healing, | [phone] | | | | | Building [address] | | | | | | [place], [place] | | | | | | [address] | | | | | | [phone] | | | +--------+---------+ + + + [...] Wi ll discuss with Dr. Brian and tooth polisher her best strategies for meeting weight loss [...] | | 2020 | sherrill | | REPAIRER PUMP [address] | | | | | | [place], [place] | | | | | | [address] | | | | | | [phone] | | | | | | | [...] [facility] | [address] | [place] [address] | | | SERVICES, SPECIAL | PARK [...]
--- OUTSIDE RECORDS SUMMARY | ~2020-03-26 | XMS | Encounter Summary ---
Demographics + + + | Address | [address] | | | [place] [address] | + + + | Home Phone [...] [place], [place] | | | | | [address] | | + + + + + | Ellie Vang | ECON | Unknown | | + + + + + Care Team Providers + +------+ + | Care Complaint Inspector Name | Role | Phone | [...] | 2012 | on | Center at [facility] [address] | TEACHER COUNSELOR [address] | | | | | [address] [facility] | [facility] [address] | | | | | for Health and | [place], [place] | | | | | [facility] 2 | [address] | | | | | [place], [place] | [phone] | | | | | [address] | | | | | | [phone] | | | +--------+ + + + [...] | | 2019 | sherrill | | DIGITAL MARKETING ANALYST [address] | | | | | | [place], [place] | | | | | | [address] | | | | | | [phone] | | | | | | | | +--------+ + + + + documented as of this encounter Visit Diagnoses Not on filedocumented in this encounter"
--- OUTSIDE RECORDS SUMMARY | ~2020-03-26 | XMS | Encounter Summary ---
Demographics + + + | Address | [address] | | | [place] [address] | + + + | Home Phone [...] + + + | Author | [facility] | | | and [place] | + + + | Organization | [facility] | | | [...] Team Providers + +------+ + | Care Weigh Box Tender Name | Role | Phone | + +------+ + PCP | Unavailable | + +------+ + Encounter Details +--------+ + + + + | Date | Type | Department | Care Team | Description | +--------+ + + + + | 03/31/ | Orders Only | [facility] | Dharmesh Escobar, | | | 2016 | | NEPHROLOGY [place] | DANCER OR CHOREOGRAPHER [address] | | | | | [address] | [address] | | | | | [address] [place], [place] | [place] | | | | | [address] | [address] | | | | | [phone] | [phone] | | | | | | | [...] [address] | | | | | | [place] [address] | | | | | | [phone] | | | | | | | | +--------+ + + + + | 04/18/ | Procedure | Neurology | Camille De La Paz, | | | 2019 | visit | | [address] | | | | | | [address] | | | | | | [place] [address] | | | | | | [phone] | | | | | | | [...] | | | LAB | | | [place] | | | | | + +---------+ [...]
--- OUTSIDE RECORDS SUMMARY | ~2020-03-26 | XMS | Encounter Summary ---
Demographics + + + | Address | [address] | | | [place] [address] | [...] [place], [place] | | | | | [address] | | + + + + + | Ellie Vang | ECON | Unknown | | + + + + + Care Team Providers + +------+ + | Care Distribution Superintendent Name | Role | Phone | [...] | | 2020 | | Preventive at [facility] | MD [address] | (topiramate 100 mg | | | | [address] | [place], [place] | oral tablet TID) | | | | [facility] | [address] | | | | | and Healing, | [phone] | | | | | Building [address] | | | | | | [place], [place] | | | | | | [address] | | | | | | [phone] | | | +--------+--------+ + + + [...] Seen By Ordering Provider: Last Appointment in [facility] was on 0 at 3:32 pm with Randell Franks MD. Follow Up Plan: Next Appointment in [facility] is on 03/15/20 at 11:15 am with [...] | | 2020 | sherrill | | CHRONIC DISEASE EPIDEMIOLOGIST [address] | | | | | | [place] | | | | | | [address] | | | | | | [phone] | | | | | | | | +--------+ + + + + documented as of this encounter Visit Diagnoses Not on filedocumented in this encounter"
--- OUTSIDE RECORDS SUMMARY | ~2020-03-26 | XMS | Encounter Summary ---
Demographics + + + | Address | [address] | | | [place] [address] | + + + | Home Phone [...] Providers + +------+ + | Care Senior Boiler Operator Name | Role | Phone | + +------+ + PCP | Unavailable | + +------+ + Encounter Details +--------+ + + + + | Date | Type | Department | Care Team | Description | +--------+ + + + + | 02/17/ | Orders Only | [facility] | Provider, | Pure | | 2018 | | SYSTEM GENERIC OP | [address] | hyperglyceridemia; | | | | CONVERSION [address] | [address] | Hypokalemia; | | | | [address] [place], [place] | [place] [address] | Dehydration; | | | | [address] | | Hyperuricemia | | | | [phone] | | without signs of | | [...] RICHEY | | | | | | [place] [address] | | | | | | [phone] | | | | | | | | +--------+ + + + + | 04/18/ | Procedure | Neurology | Camille De La Paz, | | | 2019 | visit | | [address] | | | | | | [address] | | | | | | [place] [address] | | | | | | [phone] | | | | | | | [...]
--- OUTSIDE RECORDS SUMMARY | ~2020-03-26 | XMS | Encounter Summary ---
Demographics + + + | Address | [address] | | | [place] [address] | + + + | Home Phone [...] [place], [place] | | | | | [address] | | + + + + + | Ellie Vang | ECON | Unknown | | + + + + + Care Team Providers + +------+ + | Care Legal Department Manager Name | Role | Phone | + +------+ + | Fadi Goodrich DO | PCP | | + +------+ + Encounter Details +--------+ + + + + | Date | Type | Department | Care Team | Description | +--------+ + + + + | 08/22/ | Abstract | Cardiology | Randell Franks, | | | 2013 | | Preventive at [facility] | MD [address] | | | | | [address] | [place], [place] | | | | | [facility] | [address] | | | | | and [place], | [phone] | | | | | Building [address] | | | | | | [facility] [place] | | | | | | [address] | | | | | | [phone] | | | +--------+ + + + [...] | | 2019 | sherrill | | FEED MILL MANAGER [address] | | | | | | [place], [place] | | | | | | [address] | | | | | | [phone] | | | | | | | | +--------+ + + + + documented as of this encounter Visit Diagnoses Not on filedocumented in this encounter"
--- OUTSIDE RECORDS SUMMARY | ~2020-03-26 | XMS | Encounter Summary ---
Demographics + + + | Address | [address] | | | [place] [address] | + + + | Home Phone [...] [place], [place] | | | | | [address] | | + + + + + | Ellie Vang | ECON | Unknown | | + + + + + Care Team Providers + +------+ + | Care Staffing Operations Manager Name | Role | Phone [...] | | | | | obstruction | [place], | for Health | | | | | or gangrene | [place] | and Healing, | | | | | Abdominal | [address] | [address] | | | | | pain, | Phone: | [place], [place] | | | | | unspecified | | [address] | | | | | abdominal | Fax: | Phone: | | | | | location | [phone] | [phone] | | | | | Procedures | | Fax: | | | | | CONSULT TO | | [phone] | | | | | SURGERY - [...] | | | | [address] [place] | [place], [place] | | | | | for Health and | [address] | | | | | [facility] | [phone] | | | | | [place], [place] | | | | | | [address] | | | | | | | [...] local GI consult as she lives in [place]. Elzbieta has still not done this bc [...] | | 2019 | cheduled | | BIOLOGIST [address] | | | | | | [facility] [place] | | | | | | [address] | | | | | | [phone] | | | | | | | [...]
--- OUTSIDE RECORDS SUMMARY | ~2020-03-26 | XMS | Encounter Summary ---
Demographics + + + | Address | [address] | | | [place] [address] | + + + | Home Phone [...] [place], [place] | | | | | [address] | | + + + + + | Ellie Vang | ECON | Unknown | | + + + + + Care Team Providers + +------+ + | Care Project Management Manager Name | Role | Phone | [...] Center at [facility] [address] | | | | | | [facility] | | | | | | for Health and | | | | | | [facility] 2 | | | | | | [place], [place] | | | | | | [address] | | | | | | [phone] | | | +--------+ + + + [...] AM PDT Elzbieta Thank you for choosing [facility] for your bariatric surgery, it is time to come in for a follow-up office visit. As you know, it is important to complete r egular follow-up visits so we can gather information and monitor your outcomes after surgery . The [facility] Bariatric Services is accredited by the Metabolic and Bariatric Surgery Accredita tion and Quality Improvement Program. Please don t hesitate to call if you have any questions. Please call the office at [phone] to schedule your follow up visit. Sincerely, [facility] Bariatric Services [phone] documented in this encou nter Plan of Treatment +--------+ + + + + | Date | Type | Specialty | Care Team | Description | +--------+ + + + + | 04/04/ | Telephone-S | Surgery | Orquidea Cristobal, | | | 2019 | sherrill | | WOOL HANKER [address] | | | | | | [place], [place] | | | | | | [address] | | | | | | [phone] | | | | | | | | +--------+ + + + + documented as of this encounter Visit Diagnoses Not on filedocumented in this encounter"
--- OUTSIDE RECORDS SUMMARY | ~2020-03-26 | XMS | Encounter Summary ---
Demographics + + + | Address | [address] | | | [place] [address] | + + + | Home Phone [...] [place], [place] | | | | | [address] | | + + + + + | Ellie Vang | ECON | Unknown | | + + + + + Care Team Providers + +------+ + | Care Bean Picker Name | Role | Phone | [...] Jacy Flannery | | | | | [place] at | [place], [place] | | | | | [place] [address] | [address] | | | | | [facility] | [phone] | | | | | [facility] | | | | | | [place], [place] | | | | | | [address] | | | | | | [phone] | | | +--------+--------+ + + + [...] Seen By Ordering Provider: Last Appointment in [facility] was on 0 at 3:31 pm with Randell Franks MD. Follow Up Plan: Next Appointment in [facility] is on 03/22/20 at 2:45 pm with Beronica Franks MD. Please review and sign if appropriate elephone Encounter - Elida Kennedy - 02/23/2020 9:39 AM PDTREFILL REQUEST Person calling: Patient Medication(s) Needed: Phentermine Pharmacy (Name & Location) Preference: [facility] [address] [facility] [address] [phone] How many days worth of medication does patient have left? 0 pills left ~~~ ROUTE TO P CAR MED REFILL ~~~ ~~~ If less than 2 days on hand, route as HIGH PRIORITY~~~ documented in this [facility] Plan of Treatment +--------+ + + + + | Date | Type | Specialty | Care Team | Description | +--------+ + + + + | 04/04/ | Telephone-S | Surgery | Orquidea Cristobal, | | | 2019 | sherrill | | LICENSED PROFESSIONAL COUNSELOR [address] | | | | | | [place] | | | | | | [address] | | | | | | [phone] | | | | | | | | +--------+ + + + + documented as of this encounter Visit Diagnoses Not on filedocumented in this encounter"
--- OUTSIDE RECORDS SUMMARY | ~2020-03-26 | XMS | Encounter Summary ---
Demographics + + + | Address | [address] | | | [place] [address] | + + + | Home Phone [...] [place], [place] | | | | | [address] | | + + + + + | Ellie Vang | ECON | Unknown | | + + + + + Care Team Providers + +------+ + | Care Gas Roller Operator Name | Role | Phone | [...] | | 2015 | | Preventive at [facility] | MD [address] | (phentermine 37.5 mg | | | | [address] | [place], [place] | ) | | | | [facility] | [address] | | | | | and Healing, | [phone] | | | | | [address] | | | | | | [place], [place] | | | | | | [address] | | | | | | [phone] | | | +--------+--------+ + + + [...] breakfast. Patient Last Seen: Last Appointment in [facility] was on 04/03/15 at 10:40 am wit samantha Franks MD. Follow Up Plan: Next Appointment in [facility] is on 11/06/15 at 11:20 am with Jessica Franks MD. Please review and sign if appropriate elephone Encounter - Deepti Richardson - 10/30/2015 4:41 PM PDTPharmacy Preference: [facility] (VERIFY nam e and location) [...] medication Best number to reach patient today: [phone] Best time to reach the patient is [...] | | 2020 | sehrrill | | MEDICATION AIDE [address] | | | | | | [place], [place] | | | | | | [address] | | | | | | [phone] | | | | | | | | +--------+ + + + + documented as of this encounter Visit Diagnoses Not on filedocumented in this encounter"
--- OUTSIDE RECORDS SUMMARY | ~2020-03-26 | XMS | Encounter Summary ---
Demographics + + + | Address | [address] | | | [place] [address] | + + + | Home Phone [...] [place], [place] | | | | | [address] | | + + + + + [...] Records | | 2020 | | Center [place] [address] [address] | MD [address] | Review | | | | [facility] | [facility] | | | | | [facility] and | [place], [place] | | | | | [place] [address] | [address] | | | | | [place], [place] | [phone] | | | | | [address] | | | | | | [phone] | | | +--------+ + + + [...] | | 2019 | sherrill | | ROVING TECHNICIAN [address] | | | | | | [place], [place] | | | | | | [address] | | | | | | [phone] | | | | | | | | +--------+ + + + + documented as of this encounter Visit Diagnoses Not on filedocumented in this encounter"
--- OUTSIDE RECORDS SUMMARY | ~2020-03-26 | XMS | Encounter Summary ---
Demographics + + + | Address | [address] | | | [place] [address] | + + + | Home Phone [...] [place], [place] | | | | | [address] | | + + + + + | Ellie Vang | ECON | Unknown | | + + + + + Care Team Providers + +------+ + | Care Literacy Coach Name | Role | Phone | [...] [id number] | | | | | | [facility] | | | | | | [place], [place] | | | | | | [address] | | | | | | [phone] | | | +--------+ + + + [...] | | 2019 | sherrill | | SPEECH PATHOLOGY ASSISTANT [address] | | | | | | [place], [place] | | | | | | [address] | | | | | | [phone] | | | | | | | | +--------+ + + + + documented as of this encounter Visit Diagnoses Not on filedocumented in this encounter"
--- OUTSIDE RECORDS SUMMARY | ~2020-03-26 | XMS | Encounter Summary ---
Demographics + + + | Address | [address] | | | [place] [address] | + + + | Home Phone [...] Providers + +------+ + | Care Boat Diesel Motor Mechanic Name | Role | Phone | + +------+ + | Jorej Hill | PCP | | + +------+ [...] + + | 02/14/ | Telephone | [facility] | Gee, | Other | | 2020 | | NEUROLOGY [address] | [address] | (Documentation) | | | | [place] | | | | | | [place] | | | | | | [address] | | | | | | [phone] | | | +--------+ + + + [...] | | | | | [place] [address] | | | | | | [phone] | | | | | | | | +--------+ + + + + | 04/18/ | Procedure | Neurology | Camille De La Paz, | | | 2019 | visit | | MD Saumya MOE | | | | | | REILLY Swain | | | | | | [place] [address] | | | | | | [phone] | | | | | | | | +--------+ + + + + documented as of this encounter Visit Diagnoses Not on filedocumented in this encounter"
--- OUTSIDE RECORDS SUMMARY | ~2020-03-26 | XMS | Encounter Summary ---
Demographics + + + | Address | [address] | | | [place] [address] | + + + | Home Phone [...] [place], [place] | | | | | [address] | | + + + + + | Ellie Vang | ECON | Unknown | | + + + + + Care Team Providers + +------+ + | Care Publication Designer Name | Role | Phone | + +------+ + | Jorje Hill MD | PCP | | + +------+ + Encounter Details +--------+ + + + + | Date | Type | Department | Care Team | Description | +--------+ + + + + | 05/03/ | Inside | NKECHI DUMAS at [facility] | Ion Pandey, | | | 2018 | Referral | [facility] [address] | MD [address] | | | | Order | [address] [place] for | [place], [place] | | | | | Health and Healing, | [address] | | | | | [address] | | | | | | [facility] [place] | | | | | | [address] | | | | | | [phone] | | | +--------+ + + + [...] | | 2020 | cheduled | | RESPIRATORY DIRECTOR [address] | | | | | | [place], [place] | | | | | | [address] | | | | | | [phone] | | | | | | | [...]
--- OUTSIDE RECORDS SUMMARY | ~2020-03-26 | XMS | Encounter Summary ---
Demographics + + + | Address | [address] | | | [place] [address] | + + + | Home Phone [...] [place], [place] | | | | | [address] | | + + + + + | Ellie Vang | ECON | Unknown | | + + + + + Care Team Providers + +------+ + | Care Finish Mender Name | Role | Phone | + +------+ + | Jorje Hill MD | PCP | | + +------+ + Encounter Details +--------+ + + + + | Date | Type | Department | Care Team | Description | +--------+ + + + + | 05/28/ | Documentati | NKECHI DUMAS at [facility] | Lab, Gi Procedure | | | 2018 | on | [address] | | | | | | [address] [facility] for | | | | | | Health and Healing, | | | | | | [address] | | | | | | [place], [place] | | | | | | [address] | | | | | | [phone] | | | +--------+ + + + [...] with JA, LT, DH, DL, SH Location: [facility] Type of Sedation: Anesthesia; Reason: Increased tolerance [...] - 05/28/2018 8:14 AM PDT Elzbieta Cristina [id number] REFERRAL FOR REVIEW: Reviewing Provider: Sheree Basilio [...] sublingual Place under tongue once daily. CALCIUM [id number]-GENIS ORAL Take 2 tablets by mouth two [...] limb 150 cm or less 8 [facility] Lab Results Component Value Date WBC [...] | | 2019 | sherrill | | DRUGLESS DOCTOR [address] | | | | | | [place], [place] | | | | | | [address] | | | | | | [phone] | | | | | | | | +--------+ + + + + documented as of this encounter Visit Diagnoses Not on filedocumented in this encounter
--- OUTSIDE RECORDS SUMMARY | ~2020-03-26 | XMS | Encounter Summary ---
Demographics + + + | Address | [address] | | | [place] [address] | + + + | Home Phone [...] [place], [place] | | | | | [address] | | + + + + + | Ellie Vang | ECON | Unknown | | + + + + + Care Team Providers + +------+ + | Care Full Charge Bookkeeper Name | Role | Phone | [...] | HA Roldan, | | | with [employer] | | hypertension | [address] | GEMA JIANG | | | | | Right | [address] | [address] | | | | | heart | [place], [place] | [facility] | | | | | failure | [address] | Rd [facility] | | | | | ([facility]) Type | Phone: | [place] | | | | | 2 diabetes | [phone] | [address] | | | | | mellitus | Fax: | Phone: | | | | | without | [phone] | [phone] | | | | | complication | | Fax: | | | | | , with | | [phone] | | | | | long-term | | | | | | | current use | | | | | | | of insulin | | | | | | | ([facility]) | | | +--------+ + + + + + Encounter Details +--------+---------+ + + + | Date | Type | Department | Care Team | Description | +--------+---------+ + + + | 05/27/ | Office | Digestive Health | Tejas Cevallos, | History of Frandy-en-Y | | 2018 | Visit | Center at [place] [address] [facility] | gastric bypass | | | | [facility] | [facility] [address] | (Primary Dx); | | | | for Health and | [place], [place] | 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, [address]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[place], [place]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) | | | | [address] | | | | | | [phone] | | | +--------+---------+ + + + [...] Follow-Up Patient referred by: Randell Franks MD [address] [place] [address] Documented time of visit: 2:36pm to 2:49 (13 minutes cexc-tv-qlzf with patient) Surgery: Gastric Bypass Date of [...] Medications since surgery: oral - appt with director emergency on the Testing blood glucose: 92 mg/dl [...] beef, cream of wheat, cream of mushroom, kosovan yogurt Fluid choices: water Supplementation: Flinstones, iron, vitamin D, vitamin C, Citracal supplement x 2 in the mor euesbio and 2 at night, magnesium, potassium, B12, [...] progression: Begin stage 4 according to [facility] diet guidelines -Provided written & verbal education/review [...] multivitamin & mineral (with iron) supplement, 2/day -3895-2606 mg calcium citrate with vitamin D/day (take in divided doses, not within 2 hour s of multivitamin or iron supplement) -500 mcg/day sublingual B12 supplement (or monthly injections) Continued to reinforce importance of mindful eating. Continue to increase physical activity. Follow up in 3 months or earlier as needed. Tejas Cevallos RD, LD Pager # [phone] signed by Tejas Cevallos RD at 05/27/2018 3:07 PM PDTdocument ed in this encounter Plan of Treatment +--------+ + + + + | Date | Type | Specialty | Care Team | Description | +--------+ + + + + | 04/04/ | Telephone-S | Surgery | Cristobal, Orquidea, | | | 2020 | cheduled | | AIR TUCKER [address] | | | | | | [place], [place] | | | | | | [address] | | | | | | [phone] | | | | | | | | +--------+ + + + + documented as of this encounter Procedures + +--------+ + + + | Procedure Name | Priori | Date/Time | Associated Diagnosis | Comments | | | ty | | | | + +--------+ + + + | GA MNT RE-ASSESSMNT | Routin | 05/27/2018 | [...]
--- OUTSIDE RECORDS SUMMARY | ~2020-03-26 | XMS | Encounter Summary ---
Demographics + + + | Address | [address] | | | [place] [address] | + + + | Home Phone [...] [place], [place] | | | | | [address] | | + + + + + | Ellie Vang | ECON | Unknown | | + + + + + Care Team Providers + +------+ + | Care Buttonhole Marker Name | Role | Phone | + +------+ + | Fadi Goodrich DO | PCP | | + +------+ + Encounter Details +--------+------+ + + + | Date | Type | Department | Care Team | Description | +--------+------+ + + + | 05/27/ | Lab | Laboratory at [facility] | | History of Frandy-en-Y | | 2017 | | [address] | | gastric bypass; | | | | [facility] | | Ventral hernia | | | | and Healing, | | without obstruction | | | | Building [address] | | or gangrene; Mixed | | | | [place], [place] | | hyperlipidemia; | | | | [address] | | 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[phone] | | type 2 without | | [...] | | 2020 | cheduled | | DIRECTOR OF CULTURE [address] | | | | | | [place], [place] | | | | | | [address] | | | | | | [phone] | | | | | | | [...] | + + + + + | [employer] | [address] | [place] [address] | | | SERVICES, CORE | CLARENCE [...] [facility] | [address] | [place] [address] | | | SERVICES, CORE | [...] + | [facility] | [address] [facility] | [place] [address] | | | SERVICES, SPECIAL | PARK [...] B: | | | | | | Accolo.DotAlign/CSPerformed | | | | | | by [employer],[address] | | | | | | Liliana Martinez [facility],[place] | | | | | | [address] | | | | | | [phone].Accolo. | | | | | | DotAlignIsmael MD, | | | | | | [...] [facility] | [address] | [place], [place] | | | [facility] | | [address] | | + + + + + [...] | [facility] | [address] | [place] [address] | | | SERVICES, LYDIA | CLARENCE [...] [facility] | [address] | [place] [address] | | | SERVICES, CORE | CLARENCE [...] [facility] | [address] | [place] [address] | | | SERVICES, CORE | PARK [...] [facility] | [address] | [place] [address] | | | SERVICES, CORE | CLARENCE [...] [facility] | [address] | [place] [address] | | | CLAIRE, CORE | PARK [...] + | [facility] | [address] | [place] [address] | | | SERVICES, CORE | PARK [...]
--- OUTSIDE RECORDS SUMMARY | ~2020-03-26 | XMS | Encounter Summary ---
Demographics + + + | Address | [address] | | | [place] [address] | + + + | Home Phone [...] [place], [place] | | | | | [address] | | + + + + + | Ellie Vang | ECON | Unknown | | + + + + + Care Team Providers + +------+ + | Care Weaver Narrow Fabrics Name | Role | Phone | + [...] Diabetes & | Morbid | Kathy M, CLINIC CHARGE NURSE | [address] | | | | Metabolism | obesity | [address] | [address] | | | | | (HCC) | [address], | Loop | | | | | Procedures | [address] | Physician's | | | | | CONSULT TO | [facility] [place] | Pavilion | | | | | ENDO | [address] | Physician's | | | | | [address] | Phone: | Pavilion | | | | | [address] | [phone] | [place], [place] | | | | | | Fax: | [address] | | | | | | [phone] | Phone: | | | | | | | [phone] | | | | | | | Fax: | | | | | | | [phone] | +--------+--------+ + + + + Encounter [...] | | | Center at Physicians | [place], [place] | ([facility]) (Primary Dx); | | | | [address] | [address] | Type 2 diabetes | | | | [address] | [phone] | mellitus ([facility]); AMARA | | | | Physician's Pavilion | | (obstructive sleep | | | | Physician's | | apnea); Morbid | | | | Pavilion [place], | | obesity ([facility]); | | | | [place] [address] | | Edema; GERD | | | | [phone] | | (gastroesophageal | | | | [...] Goodrich DO Referring physician: Kathy Feldman, KALYAN [address] [place] [address] HPI: Dylan is a 38 y.o. female [...] 9 CREATININE PLASMA (LAB) 0.71 EGFR - ALBANIAN >60 EGFR NON -ALBANIAN >60 GLUCOSE, PLASMA (LAB) 113 (H) CALCIUM, [...] | | 2020 | sherrill | | SALES AND SERVICE SPECIALIST [address] | | | | | | [place], [place] | | | | | | [address] | | | | | | [phone] | | | | | | | [...] + +--------+ + + + | AK COLLECTION | Routin | 04/14/2013 | DM [...] AMES | [address] | [place], [place] | | | ABRAHAN DANW | [facility] | [address] | | | TESTS | | | [...]
--- OUTSIDE RECORDS SUMMARY | ~2020-03-26 | XMS | Encounter Summary ---
Demographics + + + | Address | [address] | | | [place] [address] | + + + | Home Phone [...] + | Katalina Padilla | ECON | [address] | | | | | [place], [place] | | | | | [address] | | + + + + + | Ellie Vang | ECON | Unknown | | + + + + + Care Team Providers + +------+ + | Care Rubber Stamp Maker Name | Role | Phone | [...] | | | | | | | [place] for | | | | | | | Health and | | | | | | | Healing, | | | | | | | [address] | | | | | | | [place], [place] | | | | | | | [address] | | | | | | | Phone: | | | | | | | [phone] | | | | | | | Fax: | | | | | | | [phone] | +--------+--------+ + + + + Encounter Details +--------+---------+ + + + | Date | Type | Department | Care Team | Description | +--------+---------+ + + + | 06/16/ | Office | Digestive Health | Olga Lidia Montanez, | Morbid obesity (HCC) | | 2012 | Visit | Center at [facility] [address] [facility] | (Primary Dx); Type | | | | [facility] | [facility] [address] | 2 diabetes mellitus | | | | [facility] and | [place], [place] | (HCC) | | | | [place] [address] | [address] | | | | | [place], [place] | | | | | | [address] | | | | | | [phone] | | | +--------+---------+ + + + [...] of Visit: 10:06 to 10:32 (26 minutes awkj-cm-lnlq with patient & friend) SUBJECTIVE: Is surprised she has gained weight; is disappointed. Still following her usual meal plan. H as d/c'd diet soda. Still struggling w/ eating out of boredom - choosing 100 kcal snacks but having ~3 of them at a time. Not as much emotional eating lately. Has been keeping food log s (on paper) - avg 2820-5049 kcal/d. Trying to increase activity. B: Atkins [...] provided. Olga Lidia Montanez RD, [place] Pager [phone] documented in this en counter Plan of Treatment +--------+ + + + + | Date | Type | Specialty | Care Team | Description | +--------+ + + + + | 04/04/ | Telephone-S | Surgery | Orquidea Cristobal, | | | 2020 | cheduled | | ETCHER APPRENTICE PHOTOENGRAVING [address] | | | | | | [place], [place] | | | | | | [address] | | | | | | [phone] | | | | | | | | +--------+ + + + + documented as of this encounter Procedures + +--------+ + + + | Procedure Name | Priori | Date/Time | Associated Diagnosis | Comments | | | ty | | | | + +--------+ + + + | CA MNT RE-ASSESSMNT | Routin | 06/16/2013 | [...]
--- OUTSIDE RECORDS SUMMARY | ~2020-03-26 | XMS | Encounter Summary ---
Demographics + + + | Address | [address] | | | [place] [address] | + + + | Home Phone [...] [place], [place] | | | | | [address] | | + + + + + | Ellie Vang | ECON | Unknown | | + + + + + Care Team Providers + +------+ + | Care Burial Vault Setter Name | Role | Phone | [...] | | 2020 | sarahiduled | | CLEANING VALIDATION CONSULTANT [address] | | | | | | [place], [place] | | | | | | [address] | | | | | | [phone] | | | | | | | | +--------+ + + + + documented as of this encounter Visit Diagnoses Not on filedocumented in this encounter"
--- OUTSIDE RECORDS SUMMARY | ~2020-03-26 | XMS | Encounter Summary ---
Demographics + + + | Address | [address] | | | [place] [address] | + + + | Home Phone [...] [place], [place] | | | | | [address] | | + + + + + | Ellie Vang | ECON | Unknown | | + + + + + Care Team Providers + +------+ + | Care Sloop Captain Name | Role | Phone | [...] from | | 2016 | | at [facility] [address] | RN ELIGIBILITY [address] [facility] | | | | [facility] for | [place], [place] | | | | | Health and Healing, | [address] | | | | | [facility] | [phone] | | | | | Floor [place], [place] | | | | | | [address] | | | | | | [phone] | | | +--------+ + + + [...] PCP is getting her in with area legal entity controller. Plan to d/c apt with Cyndi Meier. KRISHNA Huertas documented in this encounter Plan of Treatment +--------+ + + + + | Date | Type | Specialty | Care Team | Description | +--------+ + + + + | 04/04/ | Telephone-S | Surgery | Orquidea Cristobal, | | | 2020 | cheduled | | GATE OPERATOR [address] | | | | | | [place], [place] | | | | | | [address] | | | | | | [phone] | | | | | | | | +--------+ + + + + documented as of this encounter Visit Diagnoses Not on filedocumented in this encounter"
--- OUTSIDE RECORDS SUMMARY | ~2020-03-26 | XMS | Encounter Summary ---
Demographics + + + | Address | [address] | | | [place] [address] | + + + | Home Phone [...] [place], [place] | | | | | [address] | | + + + + + | Ellie Vang | ECON | Unknown | | + + + + + Care Team Providers + +------+ + | Care Gas Stove Servicer Helper Name | Role | Phone | [...] Randell | | | | | | [address] | [address] | | | | | | [address], | Ave | | | | | | [address] | [place], [place] | | | | | | [place], [place] | [address] | | | | | | [address] | Phone: | | | | | | Phone: | [phone] | | | | | | [phone] | Fax: | | | | | | Fax: | [phone] | | | | | | [phone] | | +--------+--------+ + + + + Encounter Details +--------+---------+ + + + | Date | Type | Department | Care Team | Description | +--------+---------+ + + + | 08/29/ | Office | Cardiology | Randell Franks, | HTN (hypertension) | | 2013 | Visit | Preventive at [facility] | MD [address] | (Primary Dx); Type 2 | | | | [address] | [place], [place]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 | | | | [facility] | [address] | ([facility]); Morbid | | | | and Healing, | [phone] | obesity (HCC) | | | | [address] | | | | | | [place], [place] | | | | | | [address] | | | | | | [phone] | | | +--------+---------+ + + + [...] | | 2019 | cheduhipolito | | COMPANY DANCER [address] | | | | | | [place], [place] | | | | | | [address] | | | | | | [phone] | | | | | | | [...]
--- OUTSIDE RECORDS SUMMARY | ~2020-03-26 | XMS | Encounter Summary ---
Demographics + + + | Address | [address] | | | [place] [address] | + + + | Home Phone [...] Team Providers + +------+ + | Care Fireproof Door Assembler Name | Role | Phone | [...] Closed | | Radiology | Diagnoses | Frederica, | [facility] | | | | | Deep vein | Dharmesh | Intra Op [address] | | | | | thrombosis | MD Natan | [address] | | | | | (DVT) of | [address] | [place], [place] | | | | | left lower | [address] | [address] | | | | | extremity, | Roshan E | Phone: | | | | | unspecified | [place], [place] | [phone] | | | | | chronicity, | [address] | Fax: | | | | | unspecified | Phone: | [phone] | | | | | vein (HCC) | [phone] | | | | | | Procedures | Fax: | | | | | | IR Removal | [phone] | | | | | | Fibrin [...] + | 06/14/ | Telephone | [facility] | Dharmesh Fierro, | Procedure | | 2019 | | INTERVENTIONAL | RN | | | | | RADIOLOGY [address] | | | | | | [address] | | | | | | [place], [place] | | | | | | [address] | | | | | | [phone] | | | +--------+ + + + [...] RICHEY | | | | | | [place] [address] | | | | | | [phone] | | | | | | | | +--------+ + + + + | 04/18/ | Procedure | Neurology | Camille De La Paz, | | | 2019 | visit | | MD Saumya MOE | | | | | | [address] | | | | | | [place] [address] | | | | | | [phone] | | | | | | | [...]
--- OUTSIDE RECORDS SUMMARY | ~2020-03-26 | XMS | Encounter Summary ---
Demographics + + + | Address | [address] | | | [place] [address] | + + + | Home Phone [...] [place], [place] | | | | | [address] | | + + + + + [...] Diabetes & | Morbid | Kathy Feliciano, [employer] | [address] | | | | Metabolism | obesity | [address] | Pavilion | | | | | (HCC) | [address], | Loop | | | | | Procedures | [address] | Physician's | | | | | CONSULT TO | [place], [place] | Pavilion | | | | | ENDO | [address] | Physician's | | | | | [address] | Phone: | Pavilion | | | | | [address] | [phone] | [place], [place] | | | | | | Fax: | [address] | | | | | | [phone] | Phone: | | | | | | | [phone] | | | | | | | Fax: | | | | | | | [phone] | +--------+--------+ + + + + Encounter Details +--------+ + + + + | Date | Type | Department | Care Team | Description | +--------+ + + + + | 11/15/ | Documentati | Digestive Health | Conser, Kathy M, | | | 2013 | on | Center at [facility] [address] | [employer] [address] | | | | | [address] [facility] | [facility] 350 | | | | | for Health and | [place], [place] | | | | | [facility] 2 | [address] | | | | | [place], [place] | [phone] | | | | | [address] | | | | | | [phone] | | | +--------+ + + + [...] | | 2020 | chesteve | | SOLVENT STATION ATTENDANT [address] | | | | | | [place], [place] | | | | | | [address] | | | | | | [phone] | | | | | | | | +--------+ + + + + documented as of this encounter Visit Diagnoses + + | Diagnosis | + + | Morbid obesity (HCC) - Primary Morbid obesity | + + documented in this encounter"
--- OUTSIDE RECORDS SUMMARY | ~2020-03-26 | XMS | Encounter Summary ---
Demographics + + + | Address | [address] | | | [place] [address] | + + + | Home Phone [...] [place], [place] | | | | | [address] | | + + + + + | Ellie Vang | ECON | Unknown | | + + + + + Care Team Providers + +------+ + | Care Security Sme Name | Role | Phone | [...] Dx) | | | | Surgery at [facility] [address] | [place], [place] | | | | | [address] [place] | [address] | | | | | for Health and | [phone] | | | | | [facility], [address], | | | | | | 5th Floor | | | | | | [place], [place] | | | | | | [address] | | | | | | [phone] | | | +--------+---------+ + + + [...] [facility] Cholecystectomy, laparoscopic Allergies Allergen Reactions [...] 50 mg by mouth once daily. CALCIUM CRB&DAB-K5-GIK38-GENIS ORAL Take 2 tablets by mouth two [...] | | 2019 | sherrill | | SHAREPOINT CONSULTANT [address] | | | | | | [place], [place] | | | | | | [address] | | | | | | [phone] | | | | | | | | +--------+ + + + + documented as of this encounter Visit Diagnoses + + | Diagnosis | + + | Excess skin of abdomen - Primary Unspecified hypertrophic and atrophic condition of | | skin | + + documented in this encounter
--- OUTSIDE RECORDS SUMMARY | ~2020-03-26 | XMS | Encounter Summary ---
Demographics + + + | Address | [address] | | | [place] [address] | + + + | Home Phone [...] Team Providers + +------+ + | Care Azure Developer Name | Role | Phone | + +------+ + | Jorje Hill | PCP | | + +------+ + Encounter Details +--------+ + + + + | Date | Type | Department | Care Team | Description | +--------+ + + + + | 03/21/ | Virtual | [facility] | Camille De La Paz, | Intractable chronic | | 2020 | Office | NEUROLOGY [address] | [address] | common migraine | | | Visit | [address] | [address] | without aura | | | | [place], [place] | [place] [address] | (Primary Dx) | | | | [address] | [phone] | | | | | [phone] | | | +--------+ + + + [...] a secure 256-bit AES encrypted bidirectional video Mobeon. This visit was converted to virtual visit due to COVID-19 pandemic. Service was provided [id number]-gn-xmdd with the patient via interactive videoconferencing Video [...] mg daily.), Disp: 30 tablet, Rfl: 11 Evjkqqt-Ylttgadlx-Zysngxx D (CITRACAL CALCIUM+D PO), Take 4 tablets [...] 2 times daily., Disp: , Rfl: rizatriptan (MAXALT-AIRLINE SECURITY REPRESENTATIVE) 5 mg disintegrating tablet, Take 5 mg by mouth as needed for Migraine. May repeat in 2 hours if needed, Disp: , Rfl: spironolactone (ALDACTONE) 50 mg tablet, Take 50 mg by mouth Daily., Disp: , Rfl: thyroid (BAND EDGER THYROID) 30 mg tablet, BAND EDGER Thyroid 30 mg tablet TAKE ONE TABLET [...] a 44 yo R handed lady from [place] With h/o stroke at age 18, [...] R[address]HEY | | | | | | [place] [address] | | | | | | [phone] | | | | | | | | +--------+ + + + + | 04/18/ | Procedure | Neurology | Camille De La Paz, | | | 2019 | visit | | [address] | | | | | | [address] | | | | | | [place] [address] | | | | | | [phone] | | | | | | | | +--------+ + + + + documented as of this encounter Visit Diagnoses + + | Diagnosis | + + | Intractable chronic common migraine without aura - Primary | + + documented in this encounter"
--- OUTSIDE RECORDS SUMMARY | ~2020-03-26 | XMS | Encounter Summary ---
Demographics + + + | Address | [address] | | | [place] [address] | + + + | Home Phone [...] [place], [place] | | | | | [address] | | + + + + + | Ellie Vang | ECON | Unknown | | + + + + + Care Team Providers + +------+ + | Care Colleter Name | Role | Phone | + +------+ + | Fadi Goodrich DO | PCP | | + +------+ + Encounter Details +--------+ + + + + | Date | Type | Department | Care Team | Description | +--------+ + + + + | 11/09/ | Abstract | Cardiology | Randell Franks, | | | 2014 | | Preventive at [facility] | MD [address] | | | | | [address] | [place], [place] | | | | | [facility] | [address] | | | | | and [place], | [phone] | | | | | [address] | | | | | | [facility] [place] | | | | | | [address] | | | | | | [phone] | | | +--------+ + + + [...] | | 2020 | cheduhipolito | | AUCTION CLERK [address] | | | | | | [place], [place] | | | | | | [address] | | | | | | [phone] | | | | | | | | +--------+ + + + + documented as of this encounter Visit Diagnoses Not on filedocumented in this encounter"
--- OUTSIDE RECORDS SUMMARY | ~2020-03-26 | XMS | Encounter Summary ---
Demographics + + + | Address | [address] | | | [place] [address] | + + + | Home Phone [...] [place], [place] | | | | | [address] | | + + + + + | Ellie Vang | ECON | Unknown | | + + + + + Care Team Providers + +------+ + | Care Punch Hand Name | Role | Phone | [...] floor | | | | | | [place], [place] | | | | | | [address] | | | +--------+ + + + [...] | 2019 | cheduled | | RN TRANSITION [address] | | | | | | [place] | | | | | | [address] | | | | | | [phone] | | | | | | | | +--------+ + + + + documented as of this encounter Visit Diagnoses Not on filedocumented in this encounter"
--- OUTSIDE RECORDS SUMMARY | ~2020-03-26 | XMS | Encounter Summary ---
Demographics + + + | Address | [address] | | | [place] [address] | + + + | Home Phone [...] [place], [place] | | | | | [address] | | + + + + + | Ellie Vang | ECON | Unknown | | + + + + + Care Team Providers + +------+ + | Care Adult Education Professional Name | Role | Phone | + +------+ + | Kenyatta Cardenas MD | PCP | | + +------+ + Encounter Details +--------+ + + + + | Date | Type | Department | Care Team | Description | +--------+ + + + + | 03/02/ | Tie Sawyer | Digestive Health | Keren Allen, | | | 2019 | | Center at [facility] [address] | AGACNP [address] | | | | | [address] [employer] | Ave [facility] [place] | | | | | for Health and | [address] | | | | | Healing, [facility] 2 | | | | | | [place], [place] | | | | | | [address] | | | | | | | [...] | | 2019 | cheloveled | | FOOD SERVICE HELPER [address] | | | | | | [place] | | | | | | [address] | | | | | | [phone] | | | | | | | | +--------+ + + + + documented as of this encounter Visit Diagnoses Not on filedocumented in this encounter"
--- OUTSIDE RECORDS SUMMARY | ~2020-03-26 | XMS | Encounter Summary ---
Demographics + + + | Address | [address] | | | [place] [address] | + + + | Home Phone [...] [place], [place] | | | | | [address] | | + + + + + | Ellie Vang | ECON | Unknown | | + + + + + Care Team Providers + +------+ + | Care Bleacher Lard Name | Role | Phone | + [...] | | | | | (HCC) | [place], [place] | Hospital, | | | | | Procedures | [address] | 10th Floor | | | | | CT ABDOMEN & | Phone: | [place] | | | | | [address] | | [address] | | | | | IV CONTRAST | Fax: | Phone: | | | | | MT CT | [phone] | [phone] | | | | | ABDOMEN&PELV | | Fax: | | | | | IS | | [phone] | | | | | W/CONTRAST | [...] | 2015 | Encounter | Lab at [facility] [address] | | | | | | [address] [facility] | | | | | | Health and Healing, | | | | | | Building 1, 3rd | | | | | | Floor [place], [place] | | | | | | [address] | | | | | | [phone] | | | +--------+ + + + [...] | | 2019 | abrahamled | | SWEEP MOLDER [address] | | | | | | [place], [place] | | | | | | [address] | | | | | | [phone] | | | | | | | [...] | [facility] | [address] | [place] [address] | | | OF CARE TESTS | | | | + + + + + documented in this encounter Visit Diagnoses + + | Diagnosis | + + | Abdominal pain | + + | Morbid obesity (HCC) Morbid obesity | + + documented in this encounter"
--- OUTSIDE RECORDS SUMMARY | ~2020-03-26 | XMS | Encounter Summary ---
[...] [place], [place] | | | | | [address] | | + + + + + | Ellie Vang | ECON | Unknown | | + + + + + Care Team Providers + +------+ + | Care School Psychology Professor Name | Role | Phone | [...] Center | | | | | | [place], [place] | | | | | | [address] | | | | | | [phone] | | | +--------+ + + + [...] | | 2019 | sherrill | | HVAC COMMERCIAL SALESPERSON [address] | | | | | | [place], [place] | | | | | | [address] | | | | | | [phone] | | | | | | | [...] in | | | | | | [place]. | | | | | | | | | | | | Julia Blackman at [facility]. | | | | | | [...] | | | | artery. A 4.1 Setswana | | | | | | catheter was navigated | | | | | | over0.035" Donal coated | | | | | | thePlatformson guide wire into | | | | [...] | | + +---------+ + + | [facility] | | | | | RADIOLOGY | | | | + +---------+ + + documented in this encounter Visit Diagnoses Not on filedocumented in this encounter
--- OUTSIDE RECORDS SUMMARY | ~2020-03-26 | XMS | Encounter Summary ---
Demographics + + + | Address | [address] | | | [place] [address] | + + + | Home Phone [...] Providers + +------+ + | Care Form Grader Name | Role | Phone | [...] + + | 06/21/ | Telephone | [facility] | Christian Dawson, | Pre-Op (confirm | | 2018 | | CENTER CV INTRA OP | MD [address] | arrival for 06/22 | | | | [address] | DMITRI GUTIERREZ, | procedure) | | | | [place] | [place] [address] | | | | | [address] | [phone] | | | | | [phone] | | | +--------+ + + + [...] RICHEY | | | | | | [facility] [place] [address] | | | | | | [phone] | | | | | | | | +--------+ + + + + | 04/18/ | Procedure | Neurology | Camille De La Paz, | | | 2019 | visit | | [address] | | | | | | [address] | | | | | | [place] [address] | | | | | | [phone] | | | | | | | | +--------+ + + + + documented as of this encounter Visit Diagnoses Not on filedocumented in this encounter"
--- OUTSIDE RECORDS SUMMARY | ~2020-03-26 | XMS | Encounter Summary ---
Demographics + + + | Address | [address] | | | [place] [address] | + + + | Home Phone [...] [place], [place] | | | | | [address] | | + + + + + [...] | Event | Medicine Clinic at | [place], [place] | | | | | [facility] | [address] | | | | | [address] | | | | | | [facility] | | | | | | and Healing, | | | | | | [address] | | | | | | [place], [place] | | | | | | [address] | | | | | | [phone] | | | +--------+ + + + [...] renal failure no electrolyte abnormalities no dialysis Urology/Water Chemist: LMP: 05/22/2019 patient reports irregular and has [...] scheduled. Transportation: TBD (patient working with social media content specialist) documented in this enco unter Plan of Treatment +--------+ + + + + | Date | Type | Specialty | Care Team | Description | +--------+ + + + + | 04/04/ | Telephone-S | Surgery | Orquidea Cristobal, | | | 2020 | sherrill | | VAMP THROATER [address] | | | | | | [place] | | | | | | [address] | | | | | | [phone] | | | | | | | | +--------+ + + + + documented as of this encounter Visit Diagnoses Not on filedocumented in this encounter
--- OUTSIDE RECORDS SUMMARY | ~2020-03-26 | XMS | Encounter Summary ---
Demographics + + + | Address | [address] | | | [place] [address] | + + + | Home Phone [...] [place], [place] | | | | | [address] | | + + + + + | Ellie Vang | ECON | Unknown | | + + + + + Care Team Providers + +------+ + | Care Database Marketing Specialist Name | Role | Phone [...] [place] | | | | | [facility] | [address] | | | | | Hospital Admitting | [place], [place] | | | | | Desk Located on the | [address] | | | | | 9th floor | [phone] | | | | | [place], [place] | | | | | | [address] | Nitin Brunner CRNA | | | | | | [address] | | | | | | Lesly Gutiérrez [facility] | | | | | | [place] [address] | | | | | | [phone] | | | | | | | [...] be different from the original. Elzbieta Cristina [id number] Allergies Allergen Reactions Amoxicillin Benadrilina [Diphenhydramine Hcl] [...] be different from the original. Elzbieta Cristina [id number] Allergies Allergen Reactions Amoxicillin Benadrilina [Diphenhydramine Hcl] [...] mg by mouth once daily. 08/28/2014 CALCIUM CRB&TAX-Q0-FWJ66-GENIS ORAL Take 1 tablet by mouth two [...] Date RATE 96 11/06/2012 ATRIALRATE 96 11/06/2012 VT 164 11/06/2012 QRS 92 11/06/2012 QT 376 11/06/2012 QTC 475 11/06/2012 PAXIS 35 11/06/2012 RAXIS 60 11/06/2012 TAXIS 45 11/06/2012 EKGDX Value: Normal sinus rhythm Normal ECG "I have personally interpreted this report, e ither alone or with a trainee." Confirmed by CARINA SMITH ([id number]) on 11/06/2012 3:29:04 PM Preoperative Adult Anesthesia Plan Last edited 03/01/15 3135 by Michelle Enriquez MD ROS Pertinent HPI: [...] Rate: normal Abdominal: Musculoskeletal: Neuro/Psych: Integument: Implants: 4135 Anesthesia Plan Comments ASA ASA 3 NPO [...] | | 2019 | sherrill | | CISO [address] | | | | | | [place], [place] | | | | | | [address] | | | | | | [phone] | | | | | | | [...]
--- OUTSIDE RECORDS SUMMARY | ~2020-03-26 | XMS | Encounter Summary ---
Demographics + + + | Address | [address] | | | [place] [address] | + + + | Home Phone [...] Team Providers + +------+ + | Care Llama Farmer Name | Role | Phone | + +------+ + PCP | Unavailable | + +------+ + Encounter Details +--------+ + + + + | Date | Type | Department | Care Team | Description | +--------+ + + + + | 02/03/ | Abstract | [facility] | Anitha, | | | 2018 | | GASTROENTEROLOGY | MD [address] | | | | | [address] [facility] | Mayur Blackwell | | | | | [address] [place] | [place] [address] | | | | | [address] | | | | | | [phone] | | | +--------+ + + + [...] RICHEY | | | | | | [place] [address] | | | | | | [phone] | | | | | | | | +--------+ + + + + | 04/18/ | Procedure | Neurology | Camille De La Paz, | | | 2019 | visit | | MD [address] | | | | | | [address] | | | | | | [place] [address] | | | | | | [phone] | | | | | | | [...]
--- OUTSIDE RECORDS SUMMARY | ~2020-03-26 | XMS | Encounter Summary ---
Demographics + + + | Address | [address] | | | [place] [address] | + + + | Home Phone [...] [place], [place] | | | | | [address] | | + + + + + | Ellie Vang | ECON | Unknown | | + + + + + Care Team Providers + +------+ + | Care Train Engineer Name | Role | Phone | [...] 2014 | | Center at [facility] [address] | [facility] [address] | Review (Pre-surgery | | | | [address] [facility] | Ave [place], [place] | meal plan. To be | | | | for Health and | [address] | provided to home | | | | [facility], [address] | [phone] | health nurse. ) | | | | [place], [place] | | | | | | [address] | | | | | | [phone] | | | +--------+ + + + [...] | | 2019 | sherrill | | COMPOSITION INSTRUCTOR [address] | | | | | | [place], [place] | | | | | | [address] | | | | | | [phone] | | | | | | | | +--------+ + + + + documented as of this encounter Visit Diagnoses Not on filedocumented in this encounter"
--- OUTSIDE RECORDS SUMMARY | ~2020-03-26 | XMS | Encounter Summary ---
Demographics + + + | Address | [address] | | | [place] [address] | + + + | Home Phone [...] [place], [place] | | | | | [address] | | + + + + + | Ellie Vang | ECON | Unknown | | + + + + + Care Team Providers + +------+ + | Care Rn Bariatric Name | Role | Phone | + [...] | | [address] | [place], [place] | | | | | [facility] | [address] | | | | | and [place], | [phone] | | | | | [address] | | | | | | [facility] [place] | | | | | | [address] | | | | | | [phone] | | | +--------+ + + + [...] | | 2020 | cheduhipolito | | LOCKS TENDER [address] | | | | | | [place], [place] | | | | | | [address] | | | | | | [phone] | | | | | | | | +--------+ + + + + documented as of this encounter Visit Diagnoses Not on filedocumented in this encounter"
--- OUTSIDE RECORDS SUMMARY | ~2020-03-26 | XMS | Encounter Summary ---
Demographics + + + | Address | [address] | | | [place] [address] | + + + | Home Phone [...] [place], [place] | | | | | [address] | | + + + + + [...] | | 2012 | | [place] [address] [address] | [address] [facility] | | | | | [address] [facility] | [facility] | | | | | for [facility] and | [place], [place] | | | | | [facility] 2 | [address] | | | | | [place], [place] | [phone] | | | | | [address] | | | | | | [phone] | | | +--------+ + + + [...] | | 2019 | sherrill | | CARE PROGRAM RESIDENT [address] | | | | | | [place], [place] | | | | | | [address] | | | | | | [phone] | | | | | | | | +--------+ + + + + documented as of this encounter Visit Diagnoses Not on filedocumented in this encounter"
--- OUTSIDE RECORDS SUMMARY | ~2020-03-26 | XMS | Encounter Summary ---
[...] [place], [place] | | | | | [address] | | + + + + + | Ellie Vang | ECON | Unknown | | + + + + + Care Team Providers + +------+ + | Care Roll Contour Grinder Name | Role | Phone | [...] | | | | | | [address] [place], [place] | | | | | | [address] | | | | | | [phone] | | | +--------+ + + + [...] | | 2020 | cheduled | | RUGBY LEAGUE FOOTBALLER [address] | | | | | | [place], [place] | | | | | | [address] | | | | | | [phone] | | | | | | | | +--------+ + + + + documented as of this encounter Visit Diagnoses Not on filedocumented in this encounter"
--- OUTSIDE RECORDS SUMMARY | ~2020-03-26 | XMS | Encounter Summary ---
Demographics + + + | Address | [address] | | | [place] [address] | + + + | Home Phone [...] [place], [place] | | | | | [address] | | + + + + + | Ellie Vang | ECON | Unknown | | + + + + + Care Team Providers + +------+ + | Care Manufacturing Supervisor 2Nd Shift Name | Role | Phone | [...] | | | Procedures | | Rd [place], | | | | | [place] | | [place] | | | | | INITIAL | | [address] | | | | | ASSESSMNT | | | | | | | X15MIN [place] | | | | | | [...] [facility] [address] | [address] [facility] | mellitus (HCC) | | | | [facility] | [address] | (Primary Dx); Morbid | | | | for Health and | [place], [place] | obesity (HCC) | | | | [place] [address] | [address] | | | | | [place], [place] | | | | | | [address] | | | | | | [phone] | | | +--------+---------+ + + + [...] PDTNutrition appointment, -try keeping food logs online: -www.Airborne Mobile -wwwSpotify -[email or web address].Tryolabs -Aim for 5424-8968 calories a day -Increase physical activity -try [...] appropriate portions. Denies any binge eating. Weight oil changer the past year: > 100 lb [...] see an RD for 2 years in [place] but insurance quit paying for it. Up [...] 1000/d--a more appropriate long-term range would be 3734-2315/day. Inadequat e calcium intake; did not address [...] w/ meals & snacks 2. Aim for 1797-3196 kcal/d 3. Keep food logs (at least [...] needed. Olga Lidia Montanez RD, LD Pager [phone] documented in this en counter Plan of Treatment +--------+ + + + + | Date | Type | Specialty | Care Team | Description | +--------+ + + + + | 04/04/ | Telephone-S | Surgery | Orquidea Cristobal, | | | 2020 | sherrill | | TIRE BUILDER [address] | | | | | | [place], [place] | | | | | | [address] | | | | | | [phone] | | | | | | | | +--------+ + + + + documented as of this encounter Procedures + +--------+ + + + | Procedure Name | Priori | Date/Time | Associated Diagnosis | Comments | | | ty | | | | + +--------+ + + + | [place] MNT INITIAL | Routin | 04/14/2013 | [...]
--- OUTSIDE RECORDS SUMMARY | ~2020-03-26 | XMS | Encounter Summary ---
Demographics + + + | Address | [address] | | | [place] [address] | + + + | Home Phone [...] [place], [place] | | | | | [address] | | + + + + + | Ellie Vang | ECON | Unknown | | + + + + + Care Team Providers + +------+ + | Care Painter Foreman Name | Role | Phone | [...] | | | | [address] | [place], [place] | | | | | | [place], | [address] | | | | | | [place] | Phone: | | | | | | [address] | [phone] | | | | | | Phone: | Fax: | | | | | | [phone] | [phone] | | | | | | Fax: | | | | | | | [phone] | | +--------+--------+ + + + + [...] | | | | hernia | [place] | [address] | | | | | without | SURGICAL | [address] | | | | | mention of | CLINIC [address] | [address] [place], | | | | | obstruction | [address] | [place] | | | | | or gangrene | AVE | [address] | | | | | | [place], | Phone: | | | | | | [place] [address] | [phone] | | | | | | Phone: | Fax: | | | | | | [phone] | [phone] | | | | | | Fax: | | | | | | | [phone] | | +--------+--------+ + + + + Encounter Details +--------+---------+ + + + | Date | Type | Department | Care Team | Description | +--------+---------+ + + + | 10/07/ | Office | Digestive Health | Hernandez Brian, | Hernia (Primary Dx) | | 2012 | Visit | Center at [facility] [address] | [address] [facility] | | | | | [facility] | [address] | | | | | for Health and | [place], [place] | | | | | [facility] 2 | [address] | | | | | [place], [place] | [phone] | | | | | [address] | | | | | | [phone] | | | +--------+---------+ + + + [...] but a referral to her [facility] mentioned this was probably an incisional [...] issues. 2. Optimally will need coordination for [facility] Medicaid & [facility] Bariatric program for wt loss. [...] material. 4. Continue to meet with her Sub Plant Manager in the outpatient setting for diet [...] has been instructed to f/u w/ her intrusion analyst for a strict diet of <1000 kcal/d [...] teaching. Howie Faria MD MIS/Bariatric Fellow, Pager [phone] [facility] Attending provider: Hernandez Brian MD documented [...] | | 2020 | sherrill | | WASHER BLANKET [address] | | | | | | [place], [place] | | | | | | [address] | | | | | | [phone] | | | | | | | [...]
--- OUTSIDE RECORDS SUMMARY | ~2020-03-26 | XMS | Encounter Summary ---
Demographics + + + | Address | [address] | | | [place] [address] | + + + | Home Phone [...] [place], [place] | | | | | [address] | | + + + + + | Ellie Vang | ECON | Unknown | | + + + + + Care Team Providers + +------+ + | Care Endoscopic Technician Name | Role | Phone | [...] Mailcode:[id number] | | | | | | [facility] | | | | | | [place], [place] | | | | | | [address] | | | | | | [phone] | | | +--------+ + + + [...] | | 2019 | cheduled | | AMUSEMENT RIDE INSPECTOR [address] | | | | | | [place], [place] | | | | | | [address] | | | | | | [phone] | | | | | | | [...] | | | | navigated a #5.5 Citizen [place] | | | | | | Ozzy [...] + + | Performing | Address | City/State/[facility] | Phone Number | | Organization [...] | | | | | | a#5.5 Citizen [place] sheath was | | | | | | secured into place. In | | | | | | a similar fashion, | | | | | | a#7.0 Citizen [place] sheath was | | | | | [...] | | | the AP, lateral and LAERY | | | | | | projections. [...] | | | | | The #7 Citizen [place] Brite | | | | | | [...]
--- OUTSIDE RECORDS SUMMARY | ~2020-03-26 | XMS | Encounter Summary ---
Demographics + + + | Address | [address] | | | [place] [address] | + + + | Home Phone [...] [place], [place] | | | | | [address] | | + + + + + | Ellie Vang | ECON | Unknown | | + + + + + Care Team Providers + +------+ + | Care Senior Tableau Developer Name | Role | Phone | + +------+ + | Fadi Goodrich DO | PCP | | + +------+ + Encounter Details +--------+ + + + + | Date | Type | Department | Care Team | Description | +--------+ + + + + | 10/12/ | Telephone | Digestive Health | Hernandez Brian, | | | 2012 | | [place] [address] | MD [address] [facility] | | | | | [facility] | [facility] | | | | | for Health and | [place], [place] | | | | | [facility] 2 | [address] | | | | | [place], [place] | [phone] | | | | | [address] | | | | | | [phone] | | | +--------+ + + + [...] 10/07 office visit. I s/w Katalina at [facility] (TEL [phone]), she said a fax will suffice. The following was faxed: Date: 10/12/2012 To: [facility] - Ronnell Darden From: Candy RE: Elzbieta Cristina 1975 Message: This is to confirm Elzbieta Cristina was at the [facility] on 10/07/2012 for an office [...] | | 2020 | sherrill | | CANNERY WORKER [address] | | | | | | [place] | | | | | | [address] | | | | | | [phone] | | | | | | | | +--------+ + + + + documented as of this encounter Visit Diagnoses Not on filedocumented in this encounter"
--- OUTSIDE RECORDS SUMMARY | ~2020-03-26 | XMS | Encounter Summary ---
Demographics + + + | Address | [address] | | | [place] [address] | + + + | Home Phone [...] + +------+ + | Care Compressed Gas Tester Name | Role | Phone | [...] | Services | Disease | Chronic | [facility] | | | Required | | diastolic | ARBITRATOR [address] | SLEEP | | | | | heart | [address] | DISORDERS LAB | | | | | failure | DMITRI F | [address] | | | | | (HCC) | [place] | [address] | | | | | History of | [address] | [place], [place] | | | | | sinus | Phone: | [address] | | | | | tachycardia | [phone] | Phone: | | | | | History of | Fax: | [phone] | | | | | bariatric | [phone] | Fax: | | | | | surgery | | [phone] | | | | | Sleep apnea [...] + + | 04/28/ | Office | [facility] | Sulema Altamirano | Chronic diastolic | | 2019 | Visit | CARDIOLOGY [place] | HIL[address] | heart failure (HCC) | | | | [address] | [address] [place] | (Primary Dx); | | | | [address] | [place] [address] | History of sinus | | | | [place], [place] | [phone] | tachycardia; History | | | | [address] | | of stroke; HTN, | | | | [phone] | | goal below 130/80; | | [...] have referred you to Dr. Rascon at [facility] , call [phone] for an appointment next week I made [...] and hyperuricemia which is being followed by delicatessen clerk Dr. Fu, and SELINA Escobar. Her current [...] will be seeing a surgeon seven t [facility] on May 05. In the [...] today that she never heard from the [place] [facility] providers to her sup posed [...] down 123 pounds since [facility] 2017 when weighed 394 lbs. She [...] knee pain and hernia pain Lives in [facility] her mother who smokes. . Sister is resident care provider. Grandchildren ages 4 and 7 live with he r daughter and son-in-law. Disabled , on disability .01/24/2019: working with [employer] to get her own place. Outpatient Medications [...] film Suboxone 2 mg-0.5 mg sublingual film Womfgrc-Iycuqxxaj-Ojuawvr D (CITRACAL CALCIUM+D PO) Take 2 tablets [...] Pen Needle (NOVOFINE) 32G X 6 MM [facility] Novofine 32 32 gauge x 1/4" needle [...] monohydrate/macrocrystals 100 m g capsule nystatin (NYSTATIN) 046215 UNIT/GM powder Nyamyc 100,000 unit/gram topical powder [...] Take 30 mg by mouth Daily. thyroid ([employer] OFFICER THYROID) 30 mg tablet [employer] OFF[employer]ER Thyroid 30 mg tablet TAKE ONE TABLET [...] , and aortic arch normal Echo: 01/02/2016 ([facility]): TDS, cardiac chamber dimensions grossly NML, [...] No evidence of DVT. EKG EKG 10/27: ([facility]) Normal sinus rhythm. Normal EKG. Rate 93 bpm, AZ 172 ms, QRS 90 ms, QTC 465 ms personally reviewed by me in the office today) EK02/05: Sinus tachycardia, otherwise normal. Rate 160 bpm, AZ 174 ms, QRS 74 ms, QTC 451 ms (personally reviewed by me in the office today and no significant change seen fro m EKG done in October 2016 except for faster heart rate) EK04/26/2018: Normal sinus rhythm, rate 74 bpm, AZ 182 ms, QRS 96 ms, QTC 472 ms, tracin g personally reviewed by me, and compared to previous EKG, heart rate is now better controll ed, otherwise similar morphology EK04/28/2019: Normal sinus rhythm, right axis. Rate 74 bpm, AZ 170 ms, QRS 88 ms, QTC 45 [...] heard from the sleep providers at the [place] [facility] in [place], so I have referred her again to Dr. Rascon at the [facility], and she ne eds [...] Placed This Encounter Procedures Ambulatory Referral to [facility] Pulmonology- Sleep study as well ECG [...] past surgical history. Problem list. Maryse MARKS [facility] Cardiology 04/28/2019 Nicole soler in this encounter [...] | | | | | [place] [address] | | | | | | [phone] | | | | | | | | +--------+ + + + + | 04/18/ | Procedure | Neurology | Camille De La Paz, | | | 2019 | visit | | [address] | | | | | | [place] [address] | | | | | | [place] [address] | | | | | | [phone] | | | | | | | | +--------+ + + + + + + +--------+ + + | Name | Type | Priori | Associated Diagnoses | Order Schedule | | | | ty | | | + + +--------+ + + | Ambulatory Referral | Outpatient | Routin | Chronic diastolic | Ordered: 04/28/2019 | | to [facility] | Referral | e | heart [...] | | | | | by [facility] [place] Read Only, | | | | | | [facility] Pay[facility] ([id number]), | | | | | | editor book Glen Alberto | | | | | | ([phone]) on 04/28/2019 | | | | | [...]
--- OUTSIDE RECORDS SUMMARY | ~2020-03-26 | XMS | Encounter Summary ---
Demographics + + + | Address | [address] | | | [place] [address] | + + + | Home Phone [...] [place], [place] | | | | | [address] | | + + + + + | Ellie Vang | ECON | Unknown | | + + + + + Care Team Providers + +------+ + | Care Mortar Man Name | Role | Phone | [...] | | | | | | [place], [place] | | | | | | [address] | | | | | | [phone] | | | +--------+ + + + [...] | | 2019 | sherrill | | PATTERNMAKER METAL BENCH [address] | | | | | | [place], [place] | | | | | | [address] | | | | | | [phone] | | | | | | | | +--------+ + + + + documented as of this encounter Visit Diagnoses Not on filedocumented in this encounter"
--- OUTSIDE RECORDS SUMMARY | ~2020-03-26 | XMS | Encounter Summary ---
Demographics + + + | Address | [address] | | | [place] [address] | + + + | Home Phone [...] [place], [place] | | | | | [address] | | + + + + + | Ellie Vang | ECON | Unknown | | + + + + + Care Team Providers + +------+ + | Care Senior Air Director Name | Role | Phone | + +------+ + | Fadi Goodrich DO | PCP | | + +------+ + Encounter Details +--------+ + + + + | Date | Type | Department | Care Team | Description | +--------+ + + + + | 10/04/ | Abstract | Digestive Health | Hernandez Brian, | | | 2012 | | [place] [address] | [address] [facility] | | | | | [address] [facility] | [facility] | | | | | for Health and | [place], [place] | | | | | [facility] 2 | [address] | | | | | [place], [place] | [phone] | | | | | [address] | | | | | | [phone] | | | +--------+ + + + [...] | | 2020 | sherrill | | DE ALCOHOLIZER [address] | | | | | | [place] | | | | | | [address] | | | | | | [phone] | | | | | | | | +--------+ + + + + documented as of this encounter Visit Diagnoses Not on filedocumented in this encounter"
--- OUTSIDE RECORDS SUMMARY | ~2020-03-26 | XMS | Encounter Summary ---
Demographics + + + | Address | [address] | | | [place] [address] | + + + | Home Phone [...] [place], [place] | | | | | [address] | | + + + + + | Ellie Vang | ECON | Unknown | | + + + + + Care Team Providers + +------+ + | Care Child Development Consultant Name | Role | Phone | [...] | | | | | | [place], [place] | | | | | | [address] | | | | | | [phone] | | | +--------+ + + + [...] | | 2019 | sherrill | | GAME BREEDING FARM MANAGER [address] | | | | | | [place], [place] | | | | | | [address] | | | | | | [phone] | | | | | | | | +--------+ + + + + documented as of this encounter Visit Diagnoses Not on filedocumented in this encounter"
--- OUTSIDE RECORDS SUMMARY | ~2020-03-26 | XMS | Encounter Summary ---
Demographics + + + | Address | [address] | | | [place] [address] | + + + | Home Phone [...] [place], [place] | | | | | [address] | | + + + + + | Ellie Vang | ECON | Unknown | | + + + + + Care Team Providers + +------+ + | Care Cut Out Marker Name | Role | Phone | [...] | | | Unspecified | Kathy Feliciano [address] SERVICE | MD Randell | | | | | essential | [address] [address] | [address] | | | | | hypertension | [address], | Ave | | | | | Type II or | [address] | [place], [place] | | | | | unspecified | [place], [place] | [address] | | | | | type | [address] | Phone: | | | | | diabetes | Phone: | [phone] | | | | | mellitus | [phone] | Fax: | | | | | without | Fax: | [phone] | | | | | mention of | [phone] | | | | | | complication [...] [facility] | MD [address] | mellitus (HCC) | | | | [address] | [facility] [place] | (Primary Dx) | | | | [facility] | [address] | | | | | and Healing, | [phone] | | | | | Building [address] | | | | | | [place], [place] | | | | | | [address] | | | | | | [phone] | | | +--------+---------+ + + + [...] | | 2020 | abrahamled | | GRAIN GRADER [address] | | | | | | [place], [place] | | | | | | [address] | | | | | | [phone] | | | | | | | [...] [facility] | [address] | [place] [address] | | | SERVICES, CORE | CLARENCE [...] CENTER LABORATORY | [address] | [place] [address] | | | SERVICES, SPECIAL | PARK [...]
--- OUTSIDE RECORDS SUMMARY | ~2020-03-26 | XMS | Encounter Summary ---
Demographics + + + | Address | [address] | | | [place] [address] | + + + | Home Phone [...] [place], [place] | | | | | [address] | | + + + + + | Ellie Vang | ECON | Unknown | | + + + + + Care Team Providers + +------+ + | Care Furnace Combustion Analyst Name | Role | Phone | [...] | | | | and over, | [place], [place] | and Healing, | | | | | adult (HCC) | [address] | Building [address], | | | | | Severe | Phone: | 1st Floor | | | | | muscle | | [place], [place] | | | | | deconditioni | Fax: | [address] | | | | | ng | [phone] | Phone: | | | | | Procedures | | [phone] | | | | | PHYSICAL | | Fax: | | | | | THERAPY | | [phone] | | | | | REFERRAL | | | +--------+--------+ + + + + Encounter Details +--------+ + + + + | Date | Type | Department | Care Team | Description | +--------+ + + + + | 02/02/ | Commercial Hvac Technician | Digestive Health | Shereen Georges, | Morbid obesity with | | 2017 | | Center at [facility] [address] | ACNP [address] | BMI of 70 and over, | | | | [address] | Ave [place], [place] | adult (HCC) (Primary | | | | for Health and | [address] | Dx); Severe muscle | | | | Healing, Building 2 | | deconditioning | | | | [place], [place] | | | | | | [address] | | | | | | | [...] | | 2020 | cheduled | | ASPHALT PAVING SUPERINTENDENT [address] | | | | | | [place], [place] | | | | | | [address] | | | | | | [phone] | | | | | | | [...]
--- OUTSIDE RECORDS SUMMARY | ~2020-03-26 | XMS | Encounter Summary ---
Demographics + + + | Address | [address] | | | [place] [address] | + + + | Home Phone [...] [place], [place] | | | | | [address] | | + + + + + | Ellie Vang | ECON | Unknown | | + + + + + Care Team Providers + +------+ + | Care Rental Clerk Name | Role | Phone [...] | Pre-op evaluation | | 2020 | [facility] Medicine Clinic at | | | | | | [facility] | | | | | | [address] | | | | | | [facility] | | | | | | and Healing, | | | | | | Building [address] | | | | | | [place], [place] | | | | | | [address] | | | | | | [phone] | | | +--------+ + + + + Anesthesia Record + + + + + | Procedure Name | Responsible | Anesthesia Start | Anesthesia Stop Time | | | Anesthesiologist | Time | | + + + + + | OPEN VENTRAL HERNIA | Andie Hope MD | 08/19/19 1417 | 08/19/19 7085 | | REPAIR (N/A ) | | [...] | POLINA Ladd; Endotracheal | POLINA | SPORTS DOCTOR | | | Tube; 7.5; Oral; Cuffed; [...] PST PREOPERATIVE INSTRUCTIONS Surgery check-in location: [facility] Surgery Check in Time: you will receive a call 1-3 business days before your surgery confi rming your exact arrival/check-in time for your surgery day. We know that planning for surg eileen can be stressful and involve a lot of family/friend/transportation coordination as well as hotel arrangements. The Preoperative Medicine Clinic does not have access to check in [facility], and we encourage you to contact [...] ACID (VITAMIN C) 500 MG TABLET CALCIUM CRB&TDC-P7-GAF74-GENIS ORAL CYANOCOBALAMIN (VIT B-12) 1,000 MCG TABLET [...] ch as Uber/Lyft), or public transportation. An Uber/Lyft/bellman driver does not count as the responsible [...] is after office hours, call the [facility] skip operator at [phone] and ask them to page him or h er. documented in this encounter Miscellaneous Notes Telephone Encounter - Alexia Hector RN - 07/29/2019 3:25 PM PSTPhone appointment compl eted as scheduled. Documentation to be found in the Notes and Trans Encounter tab in [employer]. Aug 04, 2019--received message from Nicole at [...] | | 2019 | cheduhipolito | | ENTERPRISE MANAGER [address] | | | | | | [place], [place] | | | | | | [address] | | | | | | [phone] | | | | | | | | +--------+ + + + + documented as of this encounter Visit Diagnoses Not on filedocumented in this encounter
--- OUTSIDE RECORDS SUMMARY | ~2020-03-26 | XMS | Encounter Summary ---
Demographics + + + | Address | [address] | | | [place] [address] | + + + | Home Phone [...] Providers + +------+ + | Care Inventory Specialist Name | Role | Phone | [...] Closed | | Radiology | Diagnoses | Etoile, | [facility] | | | | | Deep vein | Dharmesh | Intra Op [address] | | | | | thrombosis | MD Natan | [address] | | | | | (DVT) of | [address] | [place], [place] | | | | | left lower | [address] | [address] | | | | | extremity, | [address] | Phone: | | | | | unspecified | [place], [place] | [phone] | | | | | chronicity, | [address] | Fax: | | | | | unspecified | Phone: | [phone] | | | | | vein (HCC) | [phone] | | | | | | Procedures | Fax: | | | | | | IR Removal | [phone] | | | | | | Fibrin | | | | | | | Sheath/Clot | | | | | | | on Device | | | +--------+--------+ + + + + Encounter Details +--------+ + + + + | Date | Type | Department | Care Team | Description | +--------+ + + + + | 06/20/ | Hospital | [facility] | Dharmesh Melchor | Canceled (OTHER) | | 2019 | Encounter | CENTER IR INTRA OP | MD Natan [address] | | | | | [address] | [address] | | | | | [place], [place] | [place] [address] | | | | | [address] | [phone] | | | | | [phone] | | | | | | | Christian Dawson MD | | | | | | [address] | | | | | | [place], [place] | | | | | | [address] | | | | | | | [...] [place] | | | | | | [place] [address] | | | | | | [phone] | | | | | | | | +--------+ + + + + | 04/18/ | Procedure | Neurology | Camille De La Paz, | | | 2019 | visit | | [address] | | | | | | [address] | | | | | | [place] [address] | | | | | | [phone] | | | | | | | [...]
--- OUTSIDE RECORDS SUMMARY | ~2020-03-26 | XMS | Encounter Summary ---
Demographics + + + | Address | [address] | | | [place] [address] | + + + | Home Phone [...] | Author | [facility] | | | and Jeffana | + + + | Organization | [facility] | | [...] Team Providers + +------+ + | Care Stoneworker Name | Role | Phone | + +------+ + PCP | Unavailable | + +------+ + Encounter Details +--------+ + + + + | Date | Type | Department | Care Team | Description | +--------+ + + + + | 12/23/ | Orders Only | [facility] | Conversion | | | 2016 | | NEPHROLOGY [place] | Transaction, | | | | | [address] [place] [address] | Provider Unknown | | | | | [address] [place], [place] | | | | | | [address] | (Fax) | | | | | [phone] | | | +--------+ + + + [...] | | | | | | [place] [address] | | | | | | [phone] | | | | | | | | +--------+ + + + + | 04/18/ | Procedure | Neurology | Camille De La Paz, | | | 2019 | visit | | MD Saumya MOE | | | | | | [address] | | | | | | [place] [address] | | | | | | [phone] | | | | | | | [...]
--- OUTSIDE RECORDS SUMMARY | ~2020-03-26 | XMS | Encounter Summary ---
Demographics + + + | Address | [address] | | | [place] [address] | + + + | Home Phone [...] [place], [place] | | | | | [address] | | + + + + + | Ellie Vang | ECON | Unknown | | + + + + + Care Team Providers + +------+ + | Care Transit Authority Police Officer Name | Role | Phone | [...] | [address] | Ave [facility] [place] | | | | | for Health and | [address] | | | | | Healing, [facility] 2 | [phone] | | | | | [place], [place] | | | | | | [address] | | | | | | [phone] | | | +--------+ + + + [...] | | 2020 | cheduled | | LIMO DRIVER [address] | | | | | | [place], [place] | | | | | | [address] | | | | | | [phone] | | | | | | | | +--------+ + + + + documented as of this encounter Visit Diagnoses Not on filedocumented in this encounter"
--- OUTSIDE RECORDS SUMMARY | ~2020-03-26 | XMS | Encounter Summary ---
Demographics + + + | Address | [address] | | | [place] [address] | + + + | Home Phone [...] [place], [place] | | | | | [address] | | + + + + + | Ellie Vang | ECON | Unknown | | + + + + + Care Team Providers + +------+ + | Care Senior Software Engineering Manager Name | Role | Phone [...] | 2015 | Visit | Center at [facility] [address] | | (Primary Dx) | | | | [address] [facility] | | | | | | for Health and | | | | | | [facility], Building 2 | | | | | | [facility] [place] | | | | | | [address] | | | | | | [phone] | | | +--------+---------+ + + + [...] this encounter Progress Notes Yuli Childs RD, [facility], [place] - 11/06/2014 9:00 AM PDTFormatting of this note might be diff erent from the original. Referring Provider: Fadi Goodrich DO Outpatient Nutrition Clinic, Pre-Bariatric Surgery Class Pre-Surgery Class #1 prior to having Bariatric Surgery. Documented Time of Class: 2:00 until 3:00 (60 minutes akex-zj-pxsh with patient) OBJECTIVE: Height: Ht Readings from [...] or sharing information. Yes Yuli Childs RD, [facility], [place] Pager# [phone] documented in this encounter Plan of Treatment +--------+ + + + + | Date | Type | Specialty | Care Team | Description | +--------+ + + + + | 04/04/ | Telephone-S | Surgery | CristobalOrquidea, | | | 2019 | sherrill | | DIRECTOR [place]ANGE [address] | | | | | | [place], [place] | | | | | | [address] | | | | | | [phone] | | | | | | | | +--------+ + + + + documented as of this encounter Visit Diagnoses + + | Diagnosis | + + | Morbid obesity (HCC) - Primary Morbid obesity | + + documented in this encounter
--- OUTSIDE RECORDS SUMMARY | ~2020-03-26 | XMS | Encounter Summary ---
Demographics + + + | Address | [address] | | | [place] [address] | + + + | Home Phone [...] [place], [place] | | | | | [address] | | + + + + + | Ellie Vang | ECON | Unknown | | + + + + + Care Team Providers + +------+ + | Care Granulating Blender Name | Role | Phone | [...] | | | | | | [place] for | | | | | | | Health and | | | | | | | Healing, | | | | | | | [address] | | | | | | | [place], [place] | | | | | | | [address] | | | | | | | Phone: | | | | | | | [phone] | | | | | | | Fax: | | | | | | | [phone] | +--------+--------+ + + + + Encounter Details +--------+---------+ + + + | Date | Type | Department | Care Team | Description | +--------+---------+ + + + | 08/28/ | Office | Digestive Health | [address], | Morbid obesity (HCC) | | 2015 | Visit | Center at [facility] [address] | [place], [place] [address] | (Primary Dx); Type | | | | [address] [facility] | [address] | 2 diabetes mellitus | | | | and | [place], [place] | (HCC) | | | | [facility] 2 | [address] | | | | | [place], [place] | [phone] | | | | | [address] | | | | | | [phone] | | | +--------+---------+ + + + [...] this encounter Progress Notes Yuli Childs RD, [facility], [place] - 08/28/2014 12:26 PM PSTFormatting of this note might be diff erent from the original. Referring Provider: Fadi Goodrich DO Outpatient Nutrition Clinic, Pre-Bariatric Surgery Visit Follow-up diet consult prior to having Frandy-En-Y gastric bypass surgery. Documented Time of Visit: 12:29 to 12:57 (28 minutes bptq-uj-qoyi with patient) SUBJECTIVE: Trying to follow a [...] post-surgery diet progression. 4. Call or send [employer] message to dietitian with any questions. Contact information was provided. Follow up with dietitian prior to surgery to review post-surgical recommendations. Yuli Childs RD, [facility], [place] Pager# [phone] documented i n this encounter Plan of Treatment +--------+ + + + + | Date | Type | Specialty | Care Team | Description | +--------+ + + + + | 04/04/ | Telephone-S | Surgery | Orquidea Cristobal, | | | 2019 | sherrill | | EMS MANAGER [address] | | | | | | [place], [place] | | | | | | [address] | | | | | | [phone] | | | | | | | | +--------+ + + + + documented as of this encounter Procedures + +--------+ + + + | Procedure Name | Priori | Date/Time | Associated Diagnosis | Comments | | | ty | | | | + +--------+ + + + | [facility] RE-ASSESSMNT | Routin | 08/28/2014 | [...]
--- OUTSIDE RECORDS SUMMARY | ~2020-03-26 | XMS | Encounter Summary ---
Demographics + + + | Address | [address] | | | [place] [address] | + + + | Home Phone [...] [place], [place] | | | | | [address] | | + + + + + | Ellie Vang | ECON | Unknown | | + + + + + Care Team Providers + +------+ + | Care Tool Crib Clerk Name | Role | Phone [...] + + | 07/04/ | Telephone | [facility] | Chilo | Care Coordination | | 2019 | | Center at [facility] [address] | MD Jorje [address] | (follow up) | | | | S [facility] | [facility] | | | | | [facility] and | [place], [place] | | | | | [place] [address] | [address] | | | | | [place], [place] | [phone] | | | | | [address] | | | | | | [phone] | | | +--------+ + + + [...] otherwise, pt can follow up here at [facility] for evaluation and treatment. Pt informed to go to the ER for urgent symptoms. Pt verbalized understanding and agreement with plan. elephone Encounter - Konstantin jamil, Roxann Velarde - 07/04/2019 10:13 AM PSTPerson calling? (Patient, spouse, caregiver, [facility] office, etc): pt Reason for call: pt [...] | | 2019 | sherrill | | OPERATIONAL RISK ANALYST [address] | | | | | | [place], [place] | | | | | | [address] | | | | | | [phone] | | | | | | | | +--------+ + + + + documented as of this encounter Visit Diagnoses Not on filedocumented in this encounter
--- OUTSIDE RECORDS SUMMARY | ~2020-03-26 | XMS | Encounter Summary ---
Demographics + + + | Address | [address] | | | [place] [address] | + + + | Home Phone [...] [place], [place] | | | | | [address] | | + + + + + | Ellie Vang | ECON | Unknown | | + + + + + Care Team Providers + +------+ + | Care Freight Clerk Name | Role | Phone | + +------+ + | aFdi Goodrich DO | PCP | | + +------+ + Encounter Details +--------+---------+ + + + | Date | Type | Department | Care Team | Description | +--------+---------+ + + + | 02/22/ | Office | Preoperative | Gay Hoff, | Preop examination | | 2018 | Visit | [facility] at | DNP,ANP [address] | (Primary Dx) | | | | [facility]Note 2] | [facility] [address] | | | | | [address] | [place], [place] | | | | | [facility] | [address] | | | | | and Healing, | [phone] | | | | | Building 2 | | | | | | [facility] [place] | | | | | | [address] | | | | | | [phone] | | | +--------+---------+ + + + [...] or walk. Surgery check-in location: Admitting - [facility], ninth floor lobby Surgery [...] office hours, call the [facility] quill cleaning machine operator at [phone] and ask them to page him or [...] d function per TTE ( 02/16/2017) from [facility]: Improved and stable. T2DM - controlled [...] renal failure no electrolyte abnormalities no dialysis Urology/Sanforizing Machine Operator: Within Defined Limits except as noted [...] mg by mouth two times daily. CALCIUM CRB&ZGR-Q1-YTC48-GENIS ORAL Take 2 tablets by mouth two [...] Brian Incisional hernia repair 03/01/2015 [facility]/ Dr. Cantu. Primary fascial closure and [...] 98ms, QTC 460ms, TTE ( 02/16/2017) - [facility] [place] 1. Overall left ventricular systolic function is normal with, an EF between 60 - 65 %. 2. The right ventricle is normal in size and function. 3. No significant valvular abnormalities are noted. 4. In comparison to the previous (technically difficult) echocardiographic study done 01/01, no signfiicant changes are noted. TTE (02/17/2016) - [facility] Conclusions 1. There is normal left ventricular [...] resp iratory change. TTE (11/07/2015) - [facility] Final Impressions: 1. The interpretation of [...] per TTE ( 02/16/2017) form [facility]. Improved and stable. - Confirmed with [...] Advised to bring her own apparatus for [facility]. GERD - On omeprazole. Chronic [...] to this patient's care. Gay Hoff DNP,ANP [email or web address] PBB PREOPERATIVE MEDICINE CLINIC AT [facility] 4TH FLOOR [address] [place] [address] I spent time (45 minutes, [...] | 2019 | cheduled | | MANAGER SALT [address] | | | | | | [place], [place] | | | | | | [address] | | | | | | [phone] | | | | | | | [...] | [facility] | [address] | [place] [address] | | | SERVICES, CORE | CLARENCE [...] [facility] | [address] | [place] [address] | | | SERVICES, | [address] [...] | [address] | [place] [address] | | | SERVICES, | [address] [...] | [facility] | [address] | [place] [address] | | | SERVICES, SPECIAL | PARK [...] | | | LABORATORY | | | BHUTANESE | | | SERVICES, | | | [...] | [facility] | [address] | [place] [address] | | | SERVICES, CORE | CLARENCE [...] IZQUIERDO OF | [address] | [place], [place] | | | CARDIOLOGY | [address] | [address] | | + + + + + documented in this encounter Visit Diagnoses + + | Diagnosis | + + | Preop examination - Primary Preoperative examination, unspecified | + + documented in this encounter
--- OUTSIDE RECORDS SUMMARY | ~2020-03-26 | XMS | Encounter Summary ---
Demographics + + + | Address | [address] | | | [place] [address] | + + + | Home Phone [...] [place], [place] | | | | | [address] | | + + + + + | Ellie Vang | ECON | Unknown | | + + + + + Care Team Providers + +------+ + | Care Cupola Man Name | Role | Phone | + +------+ + | Fadi Goodrich DO | PCP | | + +------+ + Encounter Details +--------+ + + + + | Date | Type | Department | Care Team | Description | +--------+ + + + + | 02/13/ | Telephone | Cardiology | Randell Franks, | | | 2016 | | Preventive at [facility] | MD [address] | | | | | [address] | [facility] [place] | | | | | [facility] | [address] | | | | | and [place], | [phone] | | | | | Building [address] | | | | | | [facility] [place] | | | | | | [address] | | | | | | [phone] | | | +--------+ + + + [...] 3:16 PM Maribel Cooley NP calling from [facility] is at capacity with 10 people waiting to be admitted. Patient is being transferred to [facility] to get treatment. elephone Encounter - Corazon Alexis RN - 02/15/2016 2:0 7 PM DAVID spoke with the SCREENING TECHNICIAN at [facility] caring for Elzbieta. She reports patient was admitted there 01/10/16, 01/30/16, and 02/09/16. She encouraged me to get the records from those admissi ons. She said that they were waiting to get labs back on Elzbieta before deciding what the plan is. She reports that Elzbieta is currently requiring 2 L O2 via NC. The SCREENING TECHNICIAN will call me back a nd provide [...] faxing over the 11/06/15 admission notes from [facility]. . P DTTelephone Encounter - Corazon [...] RN - 02/15/2016 12:00 PM PDTI called [facility] in [place] and spok e with KELSIE Duggan. SBAR [...] facilitate at [facility], they c an transfer to [facility] by calling [phone]. Olga Lidia appreciated call. Advised that I will ask patient to call the ambulance now. I provid ed Olga Lidia with my callback number. 16 12:07 PM PDTTelephone Encounter - Corazon Alexis RN - 02/15/2016 11:51 AM PDTMistirma wild alling in-she is calling to let me know she is getting ready to call the ambulance to go to [facility]. She reports no acute worsening of symptoms. Advised that I will call the ER at [facility] t o alert them patient will be [...] care for her). Patient was was at [facility] and treated for hypokalemia on 02/09/16, but did not diuresis her. Parul reports molyl t patient is symptomatic- dyspneic and unable to get up from her chair without assistance (w as able to prior). I advised that since patient is symptomatic, she should be taken to the [facility] emergency room to be stabilized. If they can not diuresis Elzbieta she can be transferre d to a facility, such as [facility] where she can be treated. I provided Parul the phone number for the [facility] transfer center-[phone]. I encouraged her to talk with treating ER vivian jamil to relay concerns that she fells Elzbieta needs to be admitted for IV diuresis. elephone Encounte r - Corazon Alexis RN - 02/14/2016 3:35 PM PDTLVM for Parul Chan RN -Patient do es not need to come to [facility] for diuresis, unless they are not comfortable managing it in [facility]. We can help facilitate getting you information to get her admitted prn. I also wante d to check to see if you have been in contact with patients hosiery pairer regarding weight ga in. I requested a call back. 3 :37 PM PDTTelephone Encounter - Corazon Alexis RN - 02/14/2016 3:32 PM PDTI spoke with Dr Franks-Patient does not need to come to [facility] for diuresis, however, if they do not feel comfortable managing her diuresis in [facility] the local hosiery pairer managing Elzbieta can ca ll [facility] admitting [phone] to facilitate admission to [facility]. elephone Encounter - Corazon Alexis RN - 0 02/14/2016 3:31 PM PDT documented in this encounter Plan of Treatment +--------+ + + + + | Date | Type | Specialty | Care Team | Description | +--------+ + + + + | 04/04/ | Telephone-S | Surgery | Orquidea Cristobal, | | | 2019 | sherrill | | POWER PLANT ENGINEER [address] | | | | | | [facility] [place] | | | | | | [address] | | | | | | [phone] | | | | | | | | +--------+ + + + + documented as of this encounter Visit Diagnoses Not on filedocumented in this encounter
--- OUTSIDE RECORDS SUMMARY | ~2020-03-26 | XMS | Encounter Summary ---
Demographics + + + | Address | [address] | | | [place] [address] | + + + | Home Phone [...] Providers + +------+ + | Care Radio Equipment Repairer Name | Role | Phone [...] Closed | | Audiology | Diagnoses | [place], | [place], | | | | | [...] | | | | audiogram | [place] [address] | [place], [place] | | | | | Procedures | Phone: | [phone] Phone: | | | | | OFFICE VISIT | [phone] | [phone] | | | | | REGULAR | Fax: | Fax: | | | | | | [phone] | [phone] | +--------+--------+ + + + + Encounter [...] | | [address] | [place] [address] | Pressure sensation | | | | [address] [place] | [phone] | in both ears | | | | [place] [address] | | | | | | [phone] | | | +--------+---------+ + + + [...] RICHEY | | | | | | [place] [address] | | | | | | [phone] | | | | | | | | +--------+ + + + + | 04/18/ | Procedure | Neurology | Camille De La Paz, | | | 2019 | visit | | [address] | | | | | | [address] | | | | | | [place] [address] | | | | | | [phone] | | | | | | | [...]
--- OUTSIDE RECORDS SUMMARY | ~2020-03-26 | XMS | Encounter Summary ---
Demographics + + + | Address | [address] | | | [place] [address] | + + + | Home Phone [...] [place], [place] | | | | | [address] | | + + + + + | Ellie Vang | ECON | Unknown | | + + + + + Care Team Providers + +------+ + | Care Strategic Accounts Manager Name | Role | Phone | + +------+ + | Fadi Goodrich DO | PCP | | + +------+ + Encounter Details +--------+ + + + + | Date | Type | Department | Care Team | Description | +--------+ + + + + | 03/16/ | Telephone | Digestive Health | oRnna Clarke, | | | 2018 | | Center at [facility] [address] | ACNP [address] | | | | | [address] | Ave [place], [place] | | | | | for Health and | [address] | | | | | [facility], [facility] 2 | [phone] | | | | | [place], [place] | | | | | | [address] | | | | | | | [...] | | 2019 | sherrill | | PREPLEATER [address] | | | | | | [place], [place] | | | | | | [address] | | | | | | [phone] | | | | | | | | +--------+ + + + + documented as of this encounter Visit Diagnoses Not on filedocumented in this encounter
--- OUTSIDE RECORDS SUMMARY | ~2020-03-26 | XMS | Encounter Summary ---
Demographics + + + | Address | [address] | | | [place] [address] | + + + | Home Phone [...] [place], [place] | | | | | [address] | | + + + + + | Ellie Vang | ECON | Unknown | | + + + + + Care Team Providers + +------+ + | Care Customer Care Coordinator Name | Role | Phone | [...] | 2016 | on | Center at [facility] [address] | | | | | | [address] [facility] | | | | | | for Health and | | | | | | Healing, [facility] | | | | | | [place], [place] | | | | | | [address] | | | | | | [phone] | | | +--------+ + + + [...] | | 2020 | sherrill | | UNION CONTRACT REPRESENTATIVE [address] | | | | | | [place], [place] | | | | | | [address] | | | | | | [phone] | | | | | | | | +--------+ + + + + documented as of this encounter Visit Diagnoses Not on filedocumented in this encounter"
--- OUTSIDE RECORDS SUMMARY | ~2020-03-26 | XMS | Encounter Summary ---
Demographics + + + | Address | [address] | | | [place] [address] | + + + | Home Phone [...] + | Katalina Padilla | ECON | [address] | | | | | [place], [place] | | | | | [address] | | + + + + + | Ellie Vang | ECON | Unknown | | + + + + + Care Team Providers + +------+ + | Care Cad Designer Drafter Name | Role | Phone | [...] | | | | | Procedures | [place], [place] | [place], [place] | | | | | CONSULT TO | [address] | [address] | | | | | CAR | Phone: | Phone: | | | | | PREVENTATIVE | [phone] | [phone] | | | | | [facility] - | Fax: | Fax: | | | | | LIPIDS | [phone] | [phone] | +--------+--------+ + + + + Encounter Details +--------+---------+ + + + | Date | Type | Department | Care Team | Description | +--------+---------+ + + + | 09/11/ | Office | Cardiology | LissethOlga Lidia, | Morbid obesity with | | 2017 | Visit | Preventive at [facility] | [address] | BMI of 70 and over, | | | | [address] | [address] | adult (HCC) (Primary | | | | Center for [facility] | [place], [place] | Dx) | | | | and Healing, | [address] | | | | | Building 1 | | | | | | [place], [place] | | | | | | [address] | | | | | | [phone] | | | +--------+---------+ + + + [...] appointment, Dietitian: Olga Lidia Montanez RD, LD [facility] Bariatric department (to reschedule classes): [phone] Goals: 1. Try to stop buying Pop-Tarts 2. Replace afternoon snack (think of this as lunch) with vegetables or fruit -cucumbers, carrots, broccoli, cauliflower, etc. -try making ranch dip w/ nonfat plain yogurt (regular or Italian) (or mix yogurt w/ salsa; o r chipotle hot sauce & ivanof bay juice) 3. Snack ideas: -fruit -vegetables (with hummus or yogurt dip) -Italian yogurt - light (have w/ fruit if you're still hungry) -applesauce - unsweetened, w/ lowfat string cheese -1/4 cup nuts -lowfat string cheese -low-fat or non-fat cottage cheese w/ tomatoes 4. Aim for 60-80 grams of protein a day (see list) 5. Add Italian yogurt to breakfast Heart Protection Kitchen from [facility] Healthy eating made simple. What: FREE heart-healthy cooking demonstrations led by guest deburrer strip and nutrition experts. Samples are provided! Where: [facility] ([facility]), September, 2nd floor teaching kitchen When: All classes from 11:00am-12:00pm ? October 12 (led by Dr. Paulino Carreno MD) Please contact Keerthi Boyer at [phone] or email at [email or web address] for information on upcoming classes and to register. Space is limited - reserve your seat today! Want more info on what to eat? Watch the [employer] video, "Healthy Eating 101," at [email or web address]/[email or web address]?[email or web address] documented in this encounter Progress Notes Olga Lidia Montanez RD - 09/11/2017 2:30 PM PSTFormatting of this note might be different fro m the original. [facility]ive Cardiology, Nutrition Consultation Referring provider: Dr. Randell Franks MD Referring diagnosis: obesity, HF, DM2 Visit type: Initial; hvkk-yf-ifqe visit with patient Questions/Information desired today: Hoping [...] restarting the bariatric program; getting PT in [place] & has nutrition classes scheduled. Still has bariatric notebooks at home. Per Listiki message from Dr. Pandey 09/10/17: "Just tell [...] & 1% milk; occ w/ applesauce or Italian yogurt No L S (3pm): pop-tart or [...] it's too expensive. Occ fruit bowls from [facility]. Vegetables: every day w/ dinner - usually [...] in PT 2x/week for bariatric program (in [place]) UBW: 385-391 lbs Max weight: 529 lbs Weight history: lost from 495 lbs to 383 lbs in 5717-1075 on Atkins diet ANTHROPOMETRICS: Height: Ht Readings [...] reviewing her bariatric surgery notebook and continue admian genao behavior changes to prepare for surgery. [...] of protein a day - add light Italian yogurt to breakfast; include lean protein with PM snack/lunch 3. D/c carbonated beverages (e.g., diet soda); replace with water, Crystal Light, diet deca f tea, or other calorie-free still beverage Contact information was provided; call or send Listiki message to dietitian with any questi ons. Olga Lidia Montanez RD, LD documented in this en counter Plan of Treatment +--------+ + + + + | Date | Type | Specialty | Care Team | Description | +--------+ + + + + | 04/04/ | Telephone-S | Surgery | Orquidea Cristobal, | | | 2019 | sarahisteve | | ENERGY SPECIALIST [address] | | | | | | [place], [place] | | | | | | [address] | | | | | | [phone] | | | | | | | | +--------+ + + + + documented as of this encounter Visit Diagnoses + + | Diagnosis | + + | Morbid obesity with BMI of 70 and over, adult (HCC) - Primary | + + documented in this encounter
--- OUTSIDE RECORDS SUMMARY | ~2020-03-26 | XMS | Encounter Summary ---
Demographics + + + | Address | [address] | | | [place] [address] | + + + | Home Phone [...] [place], [place] | | | | | [address] | | + + + + + [...] | [address] | MD Jodie,PhD [address] | | | | | [facility] | [address] | | | | | Hospital Admitting | [place], [place] | | | | | Desk Located on the | [address] | | | | | 9th floor | [phone] | | | | | [place], [place] | | | | | | [address] | Jason Balbuena | | | | | | MD Twin [address] | | | | | | [address] | | | | | | [place], [place] | | | | | | [address] | | | | | | [phone] | | | | | | | [...] be different from the original. Elzbieta Cristina [id number] Allergies Allergen Reactions Amoxicillin Benadrilina [Diphenhydramine Hcl] [...] be different from the original. Elzbieta Cristina [id number] Allergies Allergen Reactions Amoxicillin Benadrilina [Diphenhydramine Hcl] [...] by mouth two times daily. 11/20/2017 CALCIUM CRB&CUS-U8-MNF88-GENIS ORAL Take 2 tablets by mouth two [...] Date RATE 110 02/22/2018 ATRIALRATE 110 02/22/2018 VA 170 02/22/2018 QRS 98 02/22/2018 QT 339 [...] | | 2020 | cheduled | | DRAPERY MAKER [address] | | | | | | [place], [place] | | | | | | [address] | | | | | | [phone] | | | | | | | [...]
--- OUTSIDE RECORDS SUMMARY | ~2020-03-26 | XMS | Encounter Summary ---
Demographics + + + | Address | [address] | | | [place] [address] | + + + | Home Phone [...] [place], [place] | | | | | [address] | | + + + + + | Ellie Vang | ECON | Unknown | | + + + + + Care Team Providers + +------+ + | Care Broadcast Producer Name | Role | Phone | [...] | | | [address] | [place], [place] | | | | | Physicians [place], | [address] | | | | | 2nd Floor | [phone] | | | | | [place], [place] | | | | | | [address] | | | | | | [phone] | | | +--------+---------+ + + + [...] Andie Brian Incisional hernia repair 02/2015 [facility]/ Dr. Cantu PHYSICAL EXAMINATION: BP [...] SCHAEFFER MD TRAUMA EMERGENCY GENERAL SURGERY AT [place] [address] [address] [facility] Mailcode: [id number] [place] [address] documented in this encounter Plan of Treatment +--------+ + + + + | Date | Type | Specialty | Care Team | Description | +--------+ + + + + | 04/04/ | Telephone-S | Surgery | Orquidea Cristobal, | | | 2020 | sherrill | | GLAZING DEPARTMENT SUPERVISOR [address] | | | | | | [place], [place] | | | | | | [address] | | | | | | [phone] | | | | | | | | +--------+ + + + + documented as of this encounter Visit Diagnoses + + | Diagnosis | + + | Incarcerated incisional hernia - Primary Incisional hernia with obstruction | + + documented in this encounter"
--- OUTSIDE RECORDS SUMMARY | ~2020-03-26 | XMS | Encounter Summary ---
Demographics + + + | Address | [address] | | | [place] [address] | + + + | Home Phone [...] [place], [place] | | | | | [address] | | + + + + + | Ellie Vang | ECON | Unknown | | + + + + + Care Team Providers + +------+ + | Care French Pastry Cook Name | Role | Phone | + +------+ + | Fadi Goodrich DO | PCP | | + +------+ + Encounter Details +--------+------+ + + + | Date | Type | Department | Care Team | Description | +--------+------+ + + + | 10/12/ | Lab | Laboratory at [facility] | | | | 2019 | | [address] | | | | | | [facility] | | | | | | and Healing, | | | | | | Building [address] | | | | | | [place], [place] | | | | | | [address] | | | | | | [phone] | | | +--------+------+ + + + [...] | | 2019 | sherrill | | EXPANDER MACHINE OPERATOR [address] | | | | | | [place], [place] | | | | | | [address] | | | | | | [phone] | | | | | | | [...] | + + + + + | [facility] | [address] | [place] [address] | | | LYDIA RANGEL | CLARENCE [...] INTFC | | | | determined by [employer] | | | | | | Laboratories. See | | | | | | Compliance Statement B: | | | | | | [employer]/CSPerformed | | | | | | by [employer],[address] | | | | | | Liliana Martinez, [facility],[place] | | | | | | [address] | | | | | | [phone]. | | | | | | Ismael [...] [facility] | [address] | [place], [place] | | | UNIV PTH - INTFC | | [address] | | + + + + + [...] | | | | | determined by [employer] | | | | | | Laboratories. See | | | | | | Compliance Statement B: | | | | | | bookletmobile.[employer]/CSPerformed | | | | | | by [employer],[address] | | | | | | [facility] | | | | | | [address] | | | | | | [phone]. | | | | | | com, [...] + + | [facility] | [address] [facility] | [place], [place] | | | UNIV PTH - INTFC | | [address] | | + + + + + [...] [facility] | | | (YEN NOAH) | [facility],[address] | | REG UNIV | | | SERUM | [place], [place] | | PTH - INTFC | | | | [address] | | | | | | [phone]. | | | | | | com, [...] B: | | | | | | book[employer]mobile.[employer]/CS | | | | + + + + + + + + | Specimen | + + | Blood - Blood | | (substance) | + + + + + + + | Performing | Address | City/State/Zipcode | Phone Number | | Organization | | | | + + + + + | [facility] | [address] | [place], [place] | | | UNIV PTH - INTFC | | [address] | | + + + + + [...] LABORATORY | [address] | [place] [address] | | | SERVICES, CORE | PARK [...] | + + + + + | [facility] | [address] | [place] [address] | | | SERVICES, CORE | CLARENCE [...] | | determined by [facility] | | | | | | Laboratories. See | | | | | | Compliance Statement B: | | | | | | bookletmobile.[employer]/CSPerformed | | | | | | by [employer],[address] | | | | | | Liliana Martinez [place], [place] | | | | | | [address] | | | | | | [phone]. | | | | | | comIsmael [...] [facility] | [address] | [place], [place] | | | UNIV PTH - INTFC | | [address] | | + + + + + [...] LABORATORY | [address] | [place] [address] | | | SERVICES, CORE | CLARENCE [...] | | | | | determined by [employer] | | | | | | Laboratories. See | | | | | | Compliance Statement B: | | | | | | bookletmobile.[employer]/CSPerformed | | | | | | by [employer],[address] | | | | | | Liliana Martinez, [facility],[place] | | | | | | [address] | | | | | | [phone]. | | | | | | comIsmael [...] [facility] | [address] | [place], [place] | | | UNIV PTH - INTFC | | [address] | | + + + + + [...] LABORATORY | [address] | [place] [address] | | | SERVICES, CORE | CLARENCE [...] | + + + + + | [facility] | [address] | [place] [address] | | | SERVICES, SPECIAL | PARK [...] | + + + + + | [facility] | [address] | [place] [address] | | | SERVICES, CORE | CLARENCE [...] at | | | | | | [email or web address] | | | | | | med by [facility] | | | | | | [facility],[address] [place] [address] | | | | | | [place] [address] | | | | | | [phone]. | | | | | | spanish [...] [facility] | [address] | [place], [place] | | | UNIV PTH - INTFC | | [address] | | + + + + + [...] the MDRD equation recommended by the | [employer] | | National Kidney Disease Education Program. [...] + + + | [facility] | [address] | [place] [address] | | | SERVICES, CORE | [address] | | | + + + + + documented in this encounter Visit Diagnoses Not on filedocumented in this encounter"
--- OUTSIDE RECORDS SUMMARY | ~2020-03-26 | XMS | Encounter Summary ---
Demographics + + + | Address | [address] | | | [place] [address] | + + + | Home Phone [...] Providers + +------+ + | Care Surgery Scheduler Name | Role | Phone | [...] | Bariatri Surg | | | with PUSH BENCH OPERATOR HELPER | | hypertension | [address] | [address] | | | | | Right | [address] | [address] | | | | | heart | [facility] [place] | Center for | | | | | failure | [address] | Health and | | | | | ([facility]) Type | Phone: | Healing, | | | | | 2 diabetes | [phone] | Building 2 | | | | | mellitus | Fax: | [place], [place] | | | | | without | [phone] | [address] | | | | | complication | | Phone: | | | | | , with | | | | | | | long-term | | Fax: | | | | | current use | | [phone] | | | | | of insulin [...] | | 2 diabetes | JEAN, | [place], [place] | | | | | mellitus | [place] [address] | [address] | | | | | without | Phone: | Phone: | | | | | complication | [phone] | [phone] | | | | | (HCC) | Fax: | Fax: | | | | | Procedures | [phone] | [phone] | | | | | IA EST [...] | 2017 | Visit | Preventive at [facility] | MD [address] | hypertension | | | | [address] | [place], [place] | (Primary Dx); Right | | | | [facility] | [address] | heart failure (HCC); | | | | and Healing, | [phone] | Type 2 diabetes | | | | Building [address] | | mellitus without | | | | [place], [place] | | complication, with | | | | [address] | | long-term current | | | | [phone] | | use of insulin (HCC) | [...] 81 mg by mouth once daily. CALCIUM [id number]-GENIS ORAL Take 2 tablets by mouth two [...] then she has worked closely with her [facility] doctor and has been been able [...] 12 CREATININE PLASMA (LAB) 0.79 EGFR - IRAQI >60 EGFR NON -IRAQI >60 GLUCOSE, PLASMA (LAB) 170 (H) CALCIUM, [...] | | 2019 | sherrill | | PIZZAMAKER [address] | | | | | | [place], [place] | | | | | | [address] | | | | | | [phone] | | | | | | | [...] + + + + | [facility] | [address] | [place] [address] | | | LYDIA RANGEL | CLARENCE [...] | + + + + + | [facility] | [address] | [place], [place] | | | SERVICES, LIPID | [address] | [address] | | + + + + + [...] glycated albumin should be considered for monitoring halfway | LABORATORY | | glycemic control in [...] + + + + | [facility] | [address] | [place] [address] | | | SERVICES, SPECIAL | PARK [...] ROBERTS | [address] | [place] [address] | | | SERVICES, CORE | CLARENCE [...]
--- OUTSIDE RECORDS SUMMARY | ~2020-03-26 | XMS | Encounter Summary ---
Demographics + + + | Address | [address] | | | [place] [address] | + + + | Home Phone [...] [place], [place] | | | | | [address] | | + + + + + | Ellie Vang | ECON | Unknown | | + + + + + Care Team Providers + +------+ + | Care Finishing Area Operator Name | Role | Phone | [...] at [facility] [address] | PLASMA SPECIALIST [address] | | | | | [address] [facility] | [facility] [address] | | | | | for Health and | [place], [place] | | | | | [facility] | [address] | | | | | [place], [place] | [phone] | | | | | [address] | | | | | | [phone] | | | +--------+ + + + [...] | | 2019 | sherrill | | ARABIC PROFESSOR [address] | | | | | | [place], [place] | | | | | | [address] | | | | | | [phone] | | | | | | | | +--------+ + + + + documented as of this encounter Visit Diagnoses Not on filedocumented in this encounter"
--- OUTSIDE RECORDS SUMMARY | ~2020-03-26 | XMS | Encounter Summary ---
Demographics + + + | Address | [address] | | | [place] [address] | + + + | Home Phone [...] Team Providers + +------+ + | Care Trauma Coordinator Name | Role | Phone | + +------+ + PCP | Unavailable | + +------+ + Encounter Details +--------+ + + + + | Date | Type | Department | Care Team | Description | +--------+ + + + + | 10/07/ | Orders Only | [facility] | Conversion | | | 2017 | | NEPHROLOGY [place] | Transaction, | | | | | [address] | Provider Unknown | | | | | [address] [place], [place] | | | | | | [address] | (Fax) | | | | | [phone] | | | +--------+ + + + [...] | | | | | | [place] [address] | | | | | | [phone] | | | | | | | | +--------+ + + + + | 04/18/ | Procedure | Neurology | Camille De La Paz, | | | 2019 | visit | | MD Saumya MOE | | | | | | [address] | | | | | | [place] [address] | | | | | | [phone] | | | | | | | [...]
--- OUTSIDE RECORDS SUMMARY | ~2020-03-26 | XMS | Encounter Summary ---
Demographics + + + | Address | [address] | | | [place] [address] | + + + | Home Phone [...] [place], [place] | | | | | [address] | | + + + + + | Ellie Vang | ECON | Unknown | | + + + + + Care Team Providers + +------+ + | Care Rim Fire Priming Operator Name | Role | Phone | [...] | | 2020 | sherrill | | ASSISTANT PROFESSOR NURSE EDUCATION [address] | | | | | | [place] | | | | | | [address] | | | | | | [phone] | | | | | | | | +--------+ + + + + documented as of this encounter Visit Diagnoses Not on filedocumented in this encounter"
--- OUTSIDE RECORDS SUMMARY | ~2020-03-26 | XMS | Encounter Summary ---
Demographics + + + | Address | [address] | | | [place] [address] | + + + | Home Phone [...] [place], [place] | | | | | [address] | | + + + + + | Ellie Vang | ECON | Unknown | | + + + + + Care Team Providers + +------+ + | Care Jewel Supervisor Name | Role | Phone | [...] [address] | (Phentermine) | | | | [place] at | [place], [place] | | | | | [place] [address] | [address] | | | | | [facility] | [phone] | | | | | [facility] | | | | | | [place], [place] | | | | | | [address] | | | | | | [phone] | | | +--------+ + + + [...] a verbal [facility] for [facility] [address] [place] [address] [id number] signed by Eda Morris MA at 02/24/2020 2:52 PM PDTTelephone Encounter - Ellie Dumont - 02/24/2020 1:32 PM PDTPt is calling regarding Rx for Phentermine. Pharmacy did not receive fax and pt is out of medication. Please refax and call pt [facility]. [phone]. elephone Encounter - Ellie Dumont - 02/24/2020 1:31 PM PDTREFILL REQUEST [facility] Medication(s) Needed: Phentermine Pharmacy (Name & Location) Preference: [facility] How many days worth of medication does patient have left? Please refax Rx ~~~ ROUTE TO P CAR MED REFILL ~~~ ~~~ If less than 2 days on hand, route as HIGH PRIORITY~~~ elephone Encounter - Ellie Dumont - 02/24/2020 12:00 PM PDTPt called to check status of Rx. [facility] pharmacy has not rece ived Rx. Please resend Rx for PHENTERMINE 37.5 mg oral tablet. Pt is out of medication. Vianca sousa call pt to confirm ph: [phone]. 12 :03 PM PDTTelephone Encounter - Marcus Dorseya - 02/24/2020 10:01 AM PDTREFILL REQUEST Person calling: Elzbieta Cristina Patient states that medication approval has not been received by pharmacy. Please call roel marcelino Medication(s) Needed: PHENTERMINE 37.5 mg oral tablet Pharmacy (Name & Location) Preference: [facility] - [place], [place] [address] [facility] [address] [phone] How many days worth of medication does [...] | 2019 | sherrill | | COAL CRUSHER OPERATOR [address] | | | | | | [place], [place] | | | | | | [address] | | | | | | [phone] | | | | | | | | +--------+ + + + + documented as of this encounter Visit Diagnoses Not on filedocumented in this encounter"
--- OUTSIDE RECORDS SUMMARY | ~2020-03-26 | XMS | Encounter Summary ---
Demographics + + + | Address | [address] | | | [place] [address] | + + + | Home Phone [...] Team Providers + +------+ + | Care Datastage Consultant Name | Role | Phone | [...] + + | 06/10/ | Telephone | [facility] | [place], | Referral | | 2019 | | INTERVENTIONAL | Mary Ortiz | | | | | RADIOLOGY [address] | | | | | [address] | | | | | | [place], [place] | | | | | | [address] | | | | | | [phone] | | | +--------+ + + + [...] Referring Physician: Jorje Hill MD Office contact: [facility] Imaging: none Patient Dx: Acute embolism and thrombosis of deep veins of right upper extremity Patient BMI: 56.81kg/m2 Blood thinners: aspirin 81mg Any Red Flags?: Electronically signed by Diana Alcantara, Speech Pathology Teacher at 9 9:38 AM PSTdocumented in this [...] [address] | | | | | | [place] [address] | | | | | | [phone] | | | | | | | | +--------+ + + + + | 04/18/ | Procedure | Neurology | Camille De La Paz, | | | 2019 | visit | | [address] | | | | | | [address] | | | | | | [place] [address] | | | | | | [phone] | | | | | | | | +--------+ + + + + documented as of this encounter Visit Diagnoses Not on filedocumented in this encounter"
--- OUTSIDE RECORDS SUMMARY | ~2020-03-26 | XMS | Encounter Summary ---
Demographics + + + | Address | [address] | | | [place] [address] | + + + | Home Phone [...] [place], [place] | | | | | [address] | | + + + + + | Ellie Vang | ECON | Unknown | | + + + + + Care Team Providers + +------+ + | Care Metalworker Name | Role | Phone | + +------+ + | Fadi Goodrich DO | PCP | | + +------+ + Encounter Details +--------+ + + + + | Date | Type | Department | Care Team | Description | +--------+ + + + + | 03/02/ | Abstract | [facility] | Hernandez Brian, | | | 2012 | | [place] [address] [address] | [address] [facility] | | | | | [address] [facility] | [facility] | | | | | for [facility] and | [place], [place] | | | | | [facility] 2 | [address] | | | | | [place], [place] | [phone] | | | | | [address] | | | | | | [phone] | | | +--------+ + + + [...] | | 2019 | sherrill | | MERCHANT BANKER [address] | | | | | | [place], [place] | | | | | | [address] | | | | | | [phone] | | | | | | | | +--------+ + + + + documented as of this encounter Visit Diagnoses Not on filedocumented in this encounter"
--- OUTSIDE RECORDS SUMMARY | ~2020-03-26 | XMS | Encounter Summary ---
Demographics + + + | Address | [address] | | | [place] [address] | + + + | Home Phone [...] Providers + +------+ + | Care Board Filler Name | Role | Phone | + +------+ + | Kenyatta Cradenas MD | PCP | | + +------+ [...] | | 2020 | sherrill | | MATCHER [address] | | | | | | [place] | | | | | | [address] | | | | | | [phone] | | | | | | | | +--------+ + + + + documented as of this encounter Visit Diagnoses Not on filedocumented in this encounter"
[~2020-03-26 21:10] MED LIST changes: +PRAZOSIN HCL2 MG PO
--- OUTSIDE RECORDS SUMMARY | 2020-03-26 21:14 | XMS ---
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 ROMERO Security Sample Paster Events No recent Security Events currently on file CRITERIA MET - Group Notification - 6 ED Visits in 6 Months - [facility] - Has Care Guidelines - PDMP - [facility] - 2 Visits in 30 Days CARE PROVIDERS Eagle Nino Community Health Worker 07/03/2019-Current PHONE: [phone] JONES DAVISON Dentist: Tube Inspector 05/23/2019-Current PHONE: [phone] Rob Tilley Director Marketing/Machine Technician 03/27/2018-Current PHONE: [phone] CONCETTA UPTON Internal Medicine: Pulmonary Disease 08/23/2018-Current PHONE: Unknown Guidelines Source: [email or web address] - Ezra Guidelines Date: 09/16/2019 Care Coordination: Receives mental health services with [facility].\T\nbsp; Please contact [facility] regarding mental health concerns. [place] Office: , [place] Office: [phone].\T\nbs; [facility] Crisis: [phone]. Care History Medical/Surgical 03/26/2020 [facility] - DR WEBBER KNOWS THIS PATIENT WELL AND RECOMMENDED PATIENT BE SEEN BY DR TIWARI AT [facility]- A REFERRAL HAS BEEN GENERATED AND CT IMAGES SENT. 12/13/2019 [facility] - PATIENT HAD AN APT WITH DR DAVISON PCP ON 12/09/19 FOR FOLLOW UP TO ED VISIT. - NEXT APT SCHEDULED FOR PATIENT IS IN FEBRUARY 2020. 09/14/2019 [facility] - PATIENT HAS AN APT WITH DR WEBBER 09/14/19 FOR FOLLOW UP TO RECENT POSTOPERATIVE COMPLICATION. - HERNIA SURGERY WAS DONE ON 08/19/[address] TIWARI AT [facility]. E.D. VISIT COUNT (12 MO.) 2 [facility] 15 [facility] H. TOTAL 17 NOTE: Visits indicate total known visits. ED/UCC VISIT TRACKING (12 MO.) 03/26/2020 21:10 [facility] [place] TYPE: Emergency COMPLAINT: - ABDOMINAL PAIN 03/23/2020 16:14 [facility] [place] TYPE: Emergency [...] exposure to other viral communic - Other intermediate project manager (current) drug therapy - Allergy status to penicillin - Anxiety disorder, unspecified 12/19/2019 09:57 [facility] [place] TYPE: Emergency COMPLAINT: - EYE PAIN NON INJURY DIAGNOSES: - Zoster ocular disease, 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 - Ocular pain, right eye - Migraine, unspecified, not intractable, without status migrai - Anxiety disorder, unspecified - Other intermediate project manager (current) drug therapy - Allergy status to other drugs, medicaments and biological sub - Allergy status to penicillin 12/02/2019 12:02 [facility] [place] TYPE: Emergency COMPLAINT: - STOMACH PAIN,BLOODY STOOL DIAGNOSES: - Anxiety disorder, unspecified - Allergy status to other drugs, medicaments and biological sub - Allergy status to other antibiotic agents status - Other mcc (current) drug therapy - Hypokalemia - Constipation, unspecified - Unspecified abdominal pain - Migraine, unspecified, not intractable, without status migrai - FDC (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 - Allergy status to penicillin 11/13/2019 17:33 [facility] [place] [facility] TYPE: Emergency COMPLAINT: - MULTIPLE COMPLAINTS DIAGNOSES: - Viral infection, unspecified - Cough - Other intermediate project manager (current) drug therapy - Anxiety disorder, unspecified - Allergy status to other antibiotic agents status - Allergy status to penicillin - Migraine, unspecified, not intractable, without status migrai 09/12/2019 17:58 [facility] [place] TYPE: Emergency COMPLAINT: - POST OP PAIN DIAGNOSES: - Allergy status to analgesic agent status - Unspecified abdominal pain - Allergy status to penicillin - Other intermediate project manager (current) drug therapy - Anxiety disorder, unspecified - Obesity, unspecified - Other postprocedural complications of skin and subcutaneous t - Allergy status to other drugs, medicaments and biological sub 09/08/2019 18:55 [facility] [place] TYPE: Emergency COMPLAINT: - DIFFICULTY BREATHING DIAGNOSES: - Headache - Other intermediate project manager (current) drug therapy - Personal history of nicotine dependence - Shortness of breath 09/02/2019 21:22 [facility] [place] TYPE: Emergency COMPLAINT: - ABDOMINAL PAIN 08/18/2019 13:47 [facility] TYPE: Emergency DIAGNOSES: 15785. amr 41866. Morbid (severe) obesity due to excess calories 11567. Ventral hernia without obstruction or gangrene 20616. Unspecified abdominal hernia with obstruction, without gangre 06/25/2019 18:23 [facility] [place] TYPE: Emergency COMPLAINT: - ABDOMINAL PAINY DIAGNOSES: - intermediate designer (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 - Anxiety disorder, unspecified - Cellulitis of abdominal wall - Acute embolism and thrombosis of deep veins of right upper ex - Nicotine dependence, unspecified, uncomplicated - Migraine, unspecified, not intractable, without status migrai - Unspecified abdominal pain - Allergy status to other drugs, medicaments and biological sub - Other mcc (current) drug therapy - Allergy status to penicillin - Obesity, unspecified 06/19/2019 06:34 [facility] [place] TYPE: Emergency COMPLAINT: - ABDOMINAL PAIN/VOMITING DIAGNOSES: - intermediate designer (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 - Personal history [...] drugs, medicaments and biological sub - Other mcc (current) drug therapy 06/01/2019 13:10 [facility] [place] TYPE: Emergency COMPLAINT: - HEADACHE/VISION ISSUES DIAGNOSES: - Allergy status to penicillin - Anxiety disorder, unspecified - Obesity, unspecified - Migraine, unspecified, not intractable, without status migrai - Other intermediate project manager (current) drug therapy - Allergy status to other drugs, medicaments and biological sub - intermediate designer (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 - Headache - intermediate designer (current) use of aspirin 05/23/2019 17:08 [facility] [place] TYPE: Emergency COMPLAINT: - BLOOD CLOT IN ARM DIAGNOSES: - Anxiety disorder, unspecified - Acute embolism and thrombosis of deep veins of right upper ex - Allergy status to penicillin - Other intermediate project manager (current) drug therapy - Pain in right arm - FDC (current) use of aspirin - Allergy status to other drugs, medicaments and biological sub 05/20/2019 10:19 [facility] [place] TYPE: Emergency COMPLAINT: - ABD PAIN, VOMITING DIAGNOSES: - Generalized abdominal pain - FDC (current) use of aspirin - Allergy status to other drugs, medicaments and biological sub - Unspecified abdominal pain - Personal history of transient ischemic attack (TIA), and cere - Anxiety disorder, unspecified - Other mcc (current) drug therapy - Other chronic pain - Allergy status to penicillin 05/13/2019 17:18 [facility] TYPE: Emergency DIAGNOSES: 53420. A303 42537. Bariatric surgery status 76477. Ventral hernia without obstruction or gangrene 70385. Nausea with vomiting, unspecified 19418. Unspecified abdominal pain 24511. Nonspecific mesenteric lymphadenitis 05/10/2019 13:06 [facility] [place] TYPE: Emergency COMPLAINT: - ABD PAIN DIAGNOSES: - Nausea with vomiting, unspecified - Allergy status to other drugs, medicaments and biological sub - Personal history of transient ischemic attack (TIA), and cere - Solitary pulmonary nodule - Other mcc (current) drug therapy - Anxiety disorder, unspecified - Allergy status to penicillin - Ventral hernia without obstruction or gangrene - intermediate designer (current) use of aspirin - Unspecified abdominal pain - Diarrhea, unspecified INPATIENT VISIT TRACKING (12 MO.) 09/03/2019 02:24 [facility] [place] TYPE: Medical Surgical COMPLAINT: - POST-OP HEMATOMA DIAGNOSES: - Body mass index (BMI) 50-59.9 , adult - Personal history of pulmonary embolism - intermediate designer (current) use of opiate analgesic - Other chronic pain - Allergy status to other drugs, medicaments and biological sub - Anxiety disorder, unspecified - Allergy status to other drugs, medicaments and biological sub - intermediate designer (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 - Bipolar disorder, unspecified - Personal history of other venous thrombosis and embolism - Anxiety disorder, unspecified - Other chronic pain - Other intermediate project manager (current) drug therapy - Postprocedural hematoma of a digestive system organ or struct - Other intermediate project manager (current) drug therapy - Personal history of other venous thrombosis and embolism - Bariatric surgery status - Essential (primary) hypertension - Personal history of transient ischemic attack (TIA), and cere - Obstructive sleep apnea (adult) (pediatric) - Personal history of pulmonary embolism - Migraine, unspecified, not intractable, without status migrai - Bipolar disorder, unspecified - intermediate designer (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 - Acute posthemorrhagic [...] (severe) obesity due to excess calories - intermediate designer (current) use of opiate analgesic - Bariatric surgery status - Hypokalemia - Hypokalemia 08/18/2019 13:47 [facility] TYPE: Surgery DIAGNOSES: . Unspecified abdominal hernia with obstruction, without gangre . Morbid (severe) obesity due to excess calories . Ventral hernia without obstruction or gangrene [email or web address]
== END 2020-03-27 00:53 | disposition home or self-care (01) ==
LOC: ED 21:10
DX: R10.13 Epigastric pain (principal); G43.909 Migraine, unspecified, not intractable, without status migrainosus; F41.9 Anxiety disorder, unspecified; Z88.0 Allergy status to penicillin; Z88.1 Allergy status to other antibiotic agents; Z88.8 Allergy status to other drugs, medicaments and biological substances; Z79.899 Other long term (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
CPT/HCPCS: 74177; 80053; 85025; 99284-25; J2550; Q9967

== ENCOUNTER 2020-04-17 11:06 | Emergency (ER) | payer OTHER ==
[~2020-04-17] VITALS: Ht 147.3 cm; Wt 127.9 kg
--- OUTSIDE RECORDS SUMMARY | ~2020-04-17 | XMS | Encounter Summary ---
Demographics + + + | Address | [address] | | | [place] [address] | + + + | Home Phone | | + + + | Preferred Language | Unknown | + + + | Marital Status | Single | + + + | Sikh Affiliation | NON | + + + [...] [place], [place] | | | | | [address] | | + + + + + | Ellie Vang | ECON | Unknown | | + + + + + Care Team Providers + +------+ + | Care Radio News Writer Name | Role | Phone | + +------+ + | Kenyatta Cardenas MD | PCP | | + +------+ + Encounter Details +--------+--------+ + + + | Date | Type | Department | Care Team | Description | +--------+--------+ + + + | 03/08/ | Travel | | | | | 2019 | | | | | +--------+--------+ + [...] Description | +--------+---------+ + + + | 06/08/ | Office | Plastic Surgery | Antoinette Hale, | | | 2019 | Visit | | [address] | | | | | | [address] | | | | | | [place], [place] | | | | | | [address] | | | | | | [phone] | | | | | | | | +--------+---------+ + + + documented as of this encounter Visit Diagnoses Not on filedocumented in this encounter"
--- OUTSIDE RECORDS SUMMARY | ~2020-04-17 | XMS | Encounter Summary ---
Demographics + + + | Address | [address] | | | [place] [address] | + + + | Home Phone | | + + + | Preferred Language | Unknown | + + + | Marital Status | Single | + + + | Synagogue Affiliation | NON | + + + | Race | White | + + + | Ethnic Group | Not or | + + + Author + + + | Author | [facility] | + + + | Organization | [facility] | + + + | Address | Unknown | + + + | Phone | Unavailable | + + + Support + + + + + | Name | Relationship | Address | Phone | + + + + + | Katalina Padilla | ECON | [address] | | | | | [place], [place] | | | | | [address] | | + + + + + | Ellie Vang | ECON | Unknown | | + + + + + Care Team Providers + +------+ + | Care Annealing Furnace Tender Name | Role | Phone | + +------+ + | Fadi Goodrich DO | PCP | | + +------+ + Encounter Details +--------+ + + + + | Date | Type | Department | Care Team | Description | +--------+ + + + + | 06/17/ | Abstract | Digestive Health | Shereen Georges, | | | 2012 | | Center at [facility] [address] | AC[address] | | | | | [address] | [address] [place], [place] | | | | | for Health and | [address] | | | | | [facility] [address] | | | | | | [place], [place] | | | | | | [address] | | | | | | | [...] | | 2019 | Visit | | [address] | | | | | | [address] | | | | | | [place], [place] | | | | | | [address] | | | | | | [phone] | | | | | | | | +--------+---------+ + + + documented as of this encounter Visit Diagnoses Not on filedocumented in this encounter"
--- OUTSIDE RECORDS SUMMARY | ~2020-04-17 | XMS | Encounter Summary ---
Demographics + + + | Address | [address] | | | [place] [address] | + + + | Home Phone [...] + | Katalina Padilla | ECON | [address] | | | | | [place], [place] | | | | | [address] | | + + + + + | Ellie Vang | ECON | Unknown | | + + + + + Care Team Providers + +------+ + | Care Casino Runner Name | Role | Phone | [...] Description | +--------+--------+ + + + | 09/06/ | Refill | Cardiology in | Randell Franks, | Refill Request | | 2020 | | [facility] | [address] | | | | | [place] at | [place], [place] | | | | | [place] [address] [address] | [address] | | | | | [facility] | [phone] | | | | | [facility] | | | | | | [place], [place] | | | | | | [address] | | | | | | [phone] | | | +--------+--------+ + + + Social History + + [...] [address] | | | | | | [place], [place] | | | | | | [address] | | | | | | [phone] | | | | | | | | +--------+---------+ + + + documented as of this encounter Visit Diagnoses Not on filedocumented in this encounter"
--- OUTSIDE RECORDS SUMMARY | ~2020-04-17 | XMS | Encounter Summary ---
Demographics + + + | Address | [address] | | | [place] [address] | + + + | Home Phone | | + + + | Preferred Language | Unknown | + + + | Marital Status | Single | + + + | Mandaeism Affiliation | NON | + + + [...] [place], [place] | | | | | [address] | | + + + + + | Ellie Vang | ECON | Unknown | | + + + + + Care Team Providers + +------+ + | Care Enterprise Application Architect Name | Role | Phone | + +------+ + | Kenyatta Cardenas MD | PCP | | + +------+ + Encounter Details +--------+--------+ + + + | Date | Type | Department | Care Team | Description | +--------+--------+ + + + | 04/07/ | Travel | | | | | [...] [address] | | | | | | [place], [place] | | | | | | [address] | | | | | | [phone] | | | | | | | | +--------+---------+ + + + documented as of this encounter Visit Diagnoses Not on filedocumented in this encounter"
--- OUTSIDE RECORDS SUMMARY | ~2020-04-17 | XMS | Encounter Summary ---
Demographics + + + | Address | [address] | | | [place] [address] | [...] + + | Author | [facility] | + + + | Organization | [facility] | + + + | Address | Unknown | + + + | Phone | Unavailable | + + + Support + + + + + | Name | Relationship | Address | Phone | + + + + + | Katalina Padilla | ECON | [address] | | | | | [place], [place] | | | | | [address] | | + + + + + | Ellie Vang | ECON | Unknown | | + + + + + Care Team Providers + +------+ + | Care Ux Design Manager Name | Role | Phone | [...] | 2016 | on | Center at [facility] [address] | | | | | | [address] [facility] | | | | | | for Health and | | | | | | Healing, [facility] 2 | | | | | | [place], [place] | | | | | | [address] | | | | | | [phone] | | | +--------+ + + + [...] | | 2019 | Visit | | [address] | | | | | | [address] | | | | | | [place], [place] | | | | | | [address] | | | | | | [phone] | | | | | | | | +--------+---------+ + + + documented as of this encounter Visit Diagnoses Not on filedocumented in this encounter"
--- OUTSIDE RECORDS SUMMARY | ~2020-04-17 | XMS | Encounter Summary ---
Demographics + + + | Address | [address] | | | [place] [address] | + + + | Home Phone [...] + | Katalina Padilla | ECON | [address] | | | | | [place], [place] | | | | | [address] | | + + + + + | Ellie Vang | ECON | Unknown | | + + + + + Care Team Providers + +------+ + | Care Auto Bumper Straightener Name | Role | Phone | + +------+ + | Jorje Hill MD | PCP | | + +------+ + Encounter Details +--------+ + + + + | Date | Type | Department | Care Team | Description | +--------+ + + + + | 02/28/ | Pharmacy | Outpatient Retail | | | | 2018 | Visit | [facility] | | | | | | [address] | | | | | | [address] [place], [place] | | | | | | [address] | | | | | | [phone] | | | +--------+ + + + [...] | Office | Plastic Surgery | Antoinette aHle, | | | 2019 | Visit | | [address] | | | | | | [address] | | | | | | [place], [place] | | | | | | [address] | | | | | | [phone] | | | | | | | | +--------+---------+ + + + documented as of this encounter Visit Diagnoses Not on filedocumented in this encounter"
--- OUTSIDE RECORDS SUMMARY | ~2020-04-17 | XMS | Encounter Summary ---
Demographics + + + | Address | [address] | | | [place] [address] | + + + | Home Phone [...] + | Katalina Padilla | ECON | [address] | | | | | [place], [place] | | | | | [address] | | + + + + + | Ellie Vang | ECON | Unknown | | + + + + + Care Team Providers + +------+ + | Care Cleaner And Presser Name | Role | Phone | + [...] Records | | 2020 | | Center [place] [address] | MD [address] | Review | | | | [facility] | [facility] | | | | | [facility] and | [place], [place] | | | | | [place] [address] | [address] | | | | | [place], [place] | [phone] | | | | | [address] | | | | | | [phone] | | | +--------+ + + + [...] Rd | | | | | | [place], [place] | | | | | | [address] | | | | | | [phone] | | | | | | | | +--------+---------+ + + + documented as of this encounter Visit Diagnoses Not on filedocumented in this encounter"
--- OUTSIDE RECORDS SUMMARY | ~2020-04-17 | XMS | Encounter Summary ---
Demographics + + + | Address | [address] | | | [place] [address] | + + + | Home Phone [...] Author + + + | Author | [facility] | + + + | Organization | [facility] | + + + | Address | Unknown | + + + | Phone | Unavailable | + + + Support + + + + + | Name | Relationship | Address | Phone | + + + + + | Katalina Padilla | ECON | [address] | | | | | [place], [place] | | | | | [address] | | + + + + + | Ellie Vang | ECON | Unknown | | + + + + + Care Team Providers + +------+ + | Care Cipher Expert Name | Role | Phone | + +------+ + | Fadi Goodrich DO | PCP | | + +------+ + Encounter Details +--------+ + + + + | Date | Type | Department | Care Team | Description | +--------+ + + + + | 02/13/ | Abstract | Cardiology | Randell Franks, | | | 2015 | | Preventive at [facility] | MD [address] | | | | | [address] | [place], [place] | | | | | [facility] | [address] | | | | | and [place], | [phone] | | | | | [address] | | | | | | [facility] [place] | | | | | | [address] | | | | | | [phone] | | | +--------+ + + + [...] | | 2019 | Visit | | [address] [facility] | | | | | | [address] | | | | | | [place], [place] | | | | | | [address] | | | | | | [phone] | | | | | | | | +--------+---------+ + + + documented as of this encounter Visit Diagnoses Not on filedocumented in this encounter"
--- OUTSIDE RECORDS SUMMARY | ~2020-04-17 | XMS | Encounter Summary ---
Demographics + + + | Address | [address] | | | [place] [address] | + + + | Home Phone | | + + + | Preferred Language | Unknown | + + + | Marital Status | Single | + + + | Congregation Affiliation | NON | + + + | Race | White | + + + | Ethnic Group | Not or | + + + Author + + + | Author | [facility] | + + + | Organization | [facility] | + + + | Address | Unknown | + + + | Phone | Unavailable | + + + Support + + + + + | Name | Relationship | Address | Phone | + + + + + | Katalina Padilla | ECON | [address] | | | | | [place], [place] | | | | | [address] | | + + + + + | Ellie Vang | ECON | Unknown | | + + + + + Care Team Providers + +------+ + | Care Blow Molding Machine Tender Name | Role | Phone | + +------+ + | Fadi Goodrich DO | PCP | | + +------+ + Encounter Details +--------+------+ + + + | Date | Type | Department | Care Team | Description | +--------+------+ + + + | 12/05/ | Lab | Laboratory at [facility] | | Type 2 diabetes | | 2013 | | [address] | | mellitus (HCC) | | | | [facility] | | | | | | and Healing, | | | | | | [address] | | | | | | [place], [place] | | | | | | [address] | | | | | | [phone] | | | +--------+------+ + + + [...] | | 2019 | Visit | | [address] | | | | | | [address] | | | | | | [place], [place] | | | | | | [address] | | | | | | [phone] | | | | | | | [...] [facility] | [address] | [place] [address] | | | SERVICES, SPECIAL | PARK [...]
--- OUTSIDE RECORDS SUMMARY | ~2020-04-17 | XMS | Encounter Summary ---
Demographics + + + | Address | [address] | | | [place] [address] | + + + | Home Phone [...] + | Katalina Padilla | ECON | [address] | | | | | [place], [place] | | | | | [address] | | + + + + + | Ellie Vang | ECON | Unknown | | + + + + + Care Team Providers + +------+ + | [employer] Consultant Name | Role | Phone | + +------+ + | Kenyatta Cardenas MD | PCP | | + +------+ + Reason for Visit +--------+--------+ + | Reason | Onset | Comments | | | Date | | +--------+--------+ + | Other | 01/17/ | urine test stop any medications? | | | 2018 | | +--------+--------+ + Encounter Details +--------+ + + + + | Date | Type | Department | Care Team | Description | +--------+ + + + + | 01/17/ | Telephone | Cardiology | Randell Franks, | Other (urine test | | 2019 | | Preventive at [facility] | MD [address] | stop any | | | | [address] | [place], [place] | medications? ) | | | | [facility] | [address] | | | | | and [place], | [phone] | | | | | [address] | | | | | | [place], [place] | | | | | | [address] | | | | | | [phone] | | | +--------+ + + + [...] this encounter Miscellaneous Notes Telephone Encounter - Anisa Massey RN - 01/17/2019 4:37 PM PDTSpoke with patient regardin g urine labs ordered; per MD note the concern is hypoparathyroidism and lab results might in dicate need for increased calcium supplementation. Advised patient to complete test on curre nt medication regime and await results. elephone Encounter - Evy Pitts - 01/17/2019 4:11 PM PDTPATIENT QUESTION/ CONCERN Person calling: Pt What is the question/concern: Pt reports that she picked up the kit for her urine test and they mentioned that some of the medication may need to be stopped prior to the testing. Pls advise if she needs to not take certain medication before the urine test. documented in this encounter Plan of Treatment +--------+---------+ + + + | Date | Type | Specialty | Care Team | Description | +--------+---------+ + + + | 06/08/ | Office | Plastic Surgery | Antoinette Hale, | | | 2020 | Visit | | [address] | | | | | | [address] | | | | | | [place] | | | | | | [address] | | | | | | [phone] | | | | | | | | +--------+---------+ + + + documented as of this encounter Visit Diagnoses Not on filedocumented in this encounter"
--- OUTSIDE RECORDS SUMMARY | ~2020-04-17 | XMS | Encounter Summary ---
Demographics + + + | Address | [address] | | | [place] [address] | + + + | Home Phone [...] + | Katalina Padilla | ECON | [address] | | | | | [place], [place] | | | | | [address] | | + + + + + | Ellie Vang | ECON | Unknown | | + + + + + Care Team Providers + +------+ + | Care Measurement Technician Name | Role | Phone | [...] Surgery | [address] | Bertha Castanon, | LAPAROSCOPIC NISH EN | | 2017 | | [address] | [address] | Y GASTRIC BYPASS | | | | [facility] | [place], [place] | | | | | Hospital Admitting | [address] | | | | | Desk Located on the | [phone] | | | | | 9th floor | | | | | | [place], [place] | | | | | | [address] | | | +--------+---------+ + + + [...] Gavin ACNP - 03/03/2018 9:49 AM PDT [facility] RED SURGERY INPATIENT DISCHARGE SUMMARY Author: KAIN Agee Attending Physician: Bertha Castanon MD PCP: Fadi Goodrich DO Admission [...] to a bariatric full liquid diets. Our [facility] dietitian was consulted and they discussed her [...] in 1 week and her surgeon, Dr. Bertha Castanon MD in approximately 4 we eks. [...] at minimum. 5. 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 CALCIUM [id number]-[id number] ORAL Take 2 tablets by mouth two [...] ch as low fat yogurt or kefir. Nikko's Yogurt or Kefir, SpringCMyfield Yogurt, and Chioban i Turkish Yogurt are common brands with beneficial probiotics. [...] are available over the counter at most [facility] stores. Nausea/Vomiting/Difficulty Swallowing Nausea/Vomiting/Difficulty swallowing: Could [...] hours per your instructions. Some medications, like [place], have Tylenol in it. Make sure you [...] (PCP) as this clinic does not provide [facility] chronic pain management services. When to Call [...] hours by calling the surgery office at [phone]. - After hours, weekends and holidays, you may call the hospital meat grading machine operator at [phone] an d have the liquefaction and regasification helper Red Surgery Team paged. OTHER DISCHARGE ORDERS [...] at minimum. 5. 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 - 2 weeks of discharge [...] Department Dept Phone Center 03/10/2018 1:30 PM Dione Andre Dig[facility] at [facility] 6th Floor [phone] FO OD AND NUT 03/10/2018 3:05 PM Ronna Clarke [facility] at [facility] 6th Floor [phone] Dig Health 04/01/2018 10:30 AM Dione Rubipsey Digestive [facility] at [facility] 6th Floor [phone] FO OD AND NUT 04/01/2018 11:00 AM Bertha Castanon [facility] at [facility] 6th Floor [phone] Dig Health 05/27/2018 2:30 PM Dione Rubipsey Digestive [facility] Center at [facility] 6th Floor [phone] FO OD AND NUT 05/27/2018 3:05 PM Ronna Valadezughn [facility] at [facility] 6th Floor [phone] Dig Health 05/27/2018 4:[address] [facility] Center at [facility] 15th Floor [phone] Comprehensiv 06/04/2018 10:35 AM Randell Franks Cardiology Preventive at [facility] [phone] Cardiology Discharging Physician: KAIN Agee Attending Physician: Bertha Castanon MD [facility] Red Surgery Pager# [phone] 9:50 AM 03/03/2018 documented in this enco [...] | | 0 | | | | [id number] | mouth two times | | | [...] documented as of this encounter Progress Notes Mulugeta Calixto - 03/03/2018 6:32 AM PDTFormatting of this note might be different from jennifer mendiola. RED Surgical Team: Foregut/Bariatrics Daily Progress Note Admission Date: 03/01/2018 (Length of Stay: 2 day) Author: MULUGETA CALIXTO Attending Provider: Bertha Castanon MD ID: Elzbieta Cristina is a [...] date of discharge 03/03/18 PARTHA Calixto MS3 [facility] [employer] Demarcus Menon MD - 03/02 11:00 AM PDT RED Surgical Team: Foregut/Bariatrics Daily Progress Note Admission Date: 03/01/2018 (Length of Stay: 1 day) Author: Demarcus Alas MD Attending Provider: Bertha Castanon MD ID: Elzbieta Cristina is a [...] for care ride home (pt lives in [place]) Demarcus Alas M.D. General Surgery Resident PGY-1 Pager: [phone] Bertha Ferrari MD - 10:00 AM PDTI have [...] Electronically signed on 03/02/2018 at 10:00 AM BERTHA CASTANON MD. documented in this en counter H&P Notes Charo Shelley MD - 03/01/2018 6:25 AM PDTI have seen and examined the patient. There has been no change in medical condition or physical exam since patient's most recent clinic visit on 02/22/18. The patient agrees to move forward with the procedure today. Charo Shelley MD [facility] [address] [facility] [id number] [place] [address] documented in this en counter Procedure Notes Bertha Castanon MD - 03/01/2018 11:21 AM PDTAssociated Order(s): LAPAROSCOPIC GASTRIC BYPA SS AND NISH-EN-Y GASTROENTEROSTOMY WITH NISH LIMB 150 CM OR LESS; EGD (ESOPHAGOGASTRODUODENO SCOPY)Procedure(s): LAPAROSCOPIC GASTRIC BYPASS AND NISH-EN-Y GASTROENTEROSTOMY WITH NISH LI MB 150 CM OR LESS; EGD (ESOPHAGOGASTRODUODENOSCOPY)Pre-Procedure Diagnose(s): Morbid obesity due to excess calories (HCC)Post-Procedure Diagnose(s): Morbid obesity due to excess calori es (HCC)Date of Procedure: 03/01/18 Primary Surgeon: Bertha Castanon MD Co Surgeon historian dramatic arts: Eldon Gonzalez MD, Chief Resident Alexx Irwin MS4 Preoperative Diagnosis: Morbid Obesity with BMI 80. Postoperative Diagnosis: Same as above Procedure list: Laparoscopic Nish-en-Y Gastric Bypass (antecolic) Esophagogastroduodenostopy Indications: Weight-related comorbidities include: OA of knees, CHFpEF Findings: Antecolic RYGB with 150cm BP limb, 150cm Nish limb. Specimens to the Lab: none Antibiotics: 3g Ancef Blood Loss: 40 cc IVF: 1300 cc Procedure Description: The patient was greeted in the preoperative area. Consent was revi ewed. The patient walked to the OR suite and laid supine on the operating table. All pres sure points were padded. SCDs were in place, turned on, and functioning. A surgical time-o ut was performed with the operative team. General anesthesia was performed and the patient tolerated this. The abdomen was prepped and draped in the normal standard fashion. The prep was allowed to dry appropriately. A 5mm visiport trocar was used to enter the abdomen via a 5mm right upper quadrant incision . Insufflation was started without incidence. The abdomen was examined and no injuries to surrounding tissue were identified. The patient tolerated insufflation well. An addition 5 mm camera port in the epigastric midline 18 cm inferior to xyphoid and a 12mm trocar in the LUQ were placed under direct visualization. The site of entry was up-sized to a 12mm trocar . Finally a 5 mm trocar was placed in the LUQ laterally. All trocars were placed under direc t visualization. The abdomen was examined. There was a large incarcerated umbilical hernia containing omentum and small bowel, this was not disturbed. The transverse colon and omentum were attempted to be retracted cranially, unfortunately th e omentum was somewhat difficult to elevate. Thus we divided the omentum from lateral up to the transverse colon. The transverse colon was exposed and retracted cranially, the Ligament of Treitz (LOT) was exposed. The jejunum was measured 150cm distal to the LOT. The jejunum was divided with 60 mm Diehlstadt stapler with white load and the distal staple line was marke d with silk suture. The mesentery was divided with harmonic ultrasonic device. The distal jejunum was measure to 150 cm. A stay-suture was placed at this location to the proximal di vided staple line (biliopancreatic limb). Enterotomies were created in each limb and a 60mm Diehlstadt stapler with white load was fired to create a [id number] jejunojejunostomy. The anastamosis was confirmed to be widely patent and hemostatic. The common enterotomy was michael sed by placing 2 stay sutures along the enterotomy for retraction and firing an Diehlstadt 60mm stapler with white load across the enterotomy. Care was taken to avoid narrowing of the j ejunojejunostomy. A running permanent v-loc suture was used to close the mesenteric defect at this site and l embert the proximal staple closure adjacent to the original enterotomies. The remaining omentum was divided from the edge to the transverse colon to greater gastric curve to allow the nish limb to pass antecolic and antegastric without tension. The omentum was reduced to cover the jejunojejunostomy and tucked posterior to the nish limb. A Nathansen liver retractor was placed in the subxiphoid position. The angle of His was id entified and blunt dissection was done to divide the phrenoesophageal ligament. The pouch w as measure to 4cm distal to the G-E Junction. A window was created in the lesser curve soft tissue at this location. Dissection was performed with a combination of blunt and harmonic instruments in the retrogastric space until the lesser sac was entered. The 60mm Diehlstadt s tapler with blue load was placed and fired transversely to start gastric pouch formation. At this point in time, despite communication and confirmation with anesthesia that items were removed from the mouth, we noted the transoral temperature probe to be incorporated into the staple line. This was dissected free from the gastric pouch sharply and this allow anesthes ia to remove the probe. The distal aspect was then freed up from the gastric remnant with Dial rmonic scalpel. A small distal tip of probe, approximately 1.5 cm in length, was removed. Th is was compared with the divided end of the probe and appeared to be a completely removed. T he gastric remnant gastrotomy was approximated with a stay suture for retraction and the michael sed with a blue load of the 60mm stapler. The Diehlstadt was then fired longitudinally towards the angle of His to create the gastric pouch, leaving the gastrotomy from foreign body remov al, on the pouch. Dissection was performed retrogastric to connect posterior and anterior d issection planes and ensure adequate fundus exclusion. Additional fires of the Diehlstadt stap ler were performed with blue loads to create the longitudinal wall of the gastric pouch up t o the angle of His. Final load included a seam guard. After division, omentum was tucked ov er the gastric remnant staple line after it was ensured to be hemostatic. The entire pouch and remnant gastric staple lines were inspected, any areas of ooze were controlled with 5 mm clip lead security officer. A 25mm Orvil was passed transorally by anesthesia. The OG tube was seen in the pouch and pa ssed through the gastrotomy that was created by removal of the temp probe, to grasp the OG t ube. The OG tube was grasped and removed through the left upper quadrant site until the anv il was lodged into the gastric pouch securely. The suture was divided and OG tube removed. A single 2-0 Vicryl suture was used to cinch the mucosa around the anvil, as the defect was slightly enlarged. This allowed good purse-string effect around the anvil. The jejunal stap le line on the nish limb was identified with the alondra drain. The jejunal staple line was opened with harmonic scalpel. The left upper quadrant trocar was removed and the incision was extended to 3cm. A wound protector was placed. The EEA stapler was passed into the abd omen and placed into the opened jejunal enterotomy. The spike was advanced and attached to the anvil. The stapler was closed and fired. The EEA stapler was removed and the transoral sutures were removed. The jejunal enterotomy was closed with 60mm Diehlstadt stapler with a w demarcus load. Medially and laterally, an interrupted 2-0 vicryl suture was placed from gastric pouch to nish limb to relieve tension on the anastomosis. All staple lines with examined for hemostasis and staple integrity. The small amount of je junal tissue were removed via the wound protector. The wound protector was removed and the fascia was closed with 2 interrupted 0 Vicryl sutures using a transfascial suture passer. T he wound was irrigated copiously prior to tying down the sutures. This site was infiltrated with 20cc of local anesthetic. A bowel clamp was placed on the nish limb. An endoscopy was performed with visualization o f the gastric pouch, gastrojejunostomy, and jejunal mucosa. All were healthy, hemostatic, a nd staple lines were intact and strong with insufflation. The entire area was submerged und er saline and no bubbling or leakage was seen. A single anti-tension suture, using 2-0 Vicry l, was placed at the medial aspect of the pouch to the nish limb. Irrigation was removed. Omentum was placed circumferentially around the gastrojejunostomy. The clamp and liver retractor were removed. All trocar sites were examined and appeared he mostatic. Trocars were removed. Skin was irrigated and closed with 4-0 monocryl and dermab ond. The patient was extubated and transferred to the recovery room in stable condition. I was present for the entirety of this procedure. There was no qualified resident available and Dr. Wagner was present as my assistant store manager operations for th e entire procedure, given the technically challenging nature of this procedure. She assisted in all critical steps of the procedure. Dr. Gonzalez was present for endoscopy at the end of the procedure. Bertha Castanon MD, FACS, [facility] Bariatric Surgery documented in this en counter Consult Notes Kaylee Ferguson, AGACNP-BC - 03/03/2018 8:07 AM PDTFormatting of this note might be differen t from the original. Endocrinology Initial Consult Note Interval Events CBGs 87-131 mg/dL Brief HPI: Elzbieta Cristina is a 43 y.o. female with a past medical history of morbid obes ity, HF, HTN and T2DM. She endorses obstructive sleep apnea and use of CPAP at night. Curre nt diabetic managed is provided by [employer] Top [employer] Dr. Franks. She is s/p Laparoscopic gas tric bypass and nish-en-y gastroenterostomy with nish limb today. ROS: A complete 13 system ROS done and notable for what was mentioned in HPI all other systems n egative. Past Medical and Surgical History Past Medical History: Diagnosis Date Abdominal pain [...] index of 70 and over in adult ([facility]) Myalgia and myositis Nausea Neck pain Numbness Osteoarthritis of knee Palpitations Pneumonia Shortness of breath Staphylococcal infection Stroke ([facility]) TIA (transient ischemic attack) due to Bromocriptine Tinea corporis UTI (urinary tract infection) Past Surgical History Procedure Laterality Date Tonsillectomy and adenoidectomy Appendectomy, open 2010 Umbilical hernia repair 2010 Treatment of ankle fracture with screws remaining Incision and drainage of wound abscess x2 midline transverse wound s/p open appendectomy 2010 Ventral hernia repair 10/2012 Dr. Andie Brian Incisional hernia repair 03/01/2015 [facility]/ Dr. Cantu. Primary fascial closure and scar excision Outpatient Medications Prior to Admission Medications Prescriptions ALPRAZolam 1 mg oral tablet Sig: Take 1 mg by mouth three times daily as needed for anxiety. CALCIUM CRB&[id number]-[id number]-GENIS ORAL Sig: Take 2 tablets by mouth two times daily. FLUoxetine 20 mg oral tablet Sig: Take 60 mg by mouth once daily at bedtime. NOVOLIN N 100 unit/mL subcutaneous suspension Sig: Inject under the skin (SUBC) three times daily with meals. OLANZapine 15 mg oral tablet Sig: Take 30 mg by mouth once daily at bedtime. PHENTERMINE 37.5 mg oral tablet Sig: TAKE ONE TABLET BY MOUTH ONCE DAILY IN THE MORNING BEFORE BREAKFAST TRESIBA FLEXTOUCH U-100 100 unit/mL (3 mL) subcutaneous insulin pen Sig: Inject 67 Units under the skin (SUBC) once daily at bedtime. acetaminophen 325 mg oral tablet Sig: Take 2 tablets by mouth every six hours as needed for pain. Cut tablet into small piec es. Do not crush. ascorbic acid (VITAMIN C) 500 mg Oral tablet Sig: Take 500 mg by mouth once daily. aspirin EC 81 mg oral tablet,delayed release (DR/EC) Sig: Take 81 mg by mouth once daily. atenolol 25 mg oral tablet Sig: Take 25 mg by mouth two times daily. enoxaparin 40 mg/0.4 mL subcutaneous syringe Sig: Inject 0.4 mL under the skin two times daily for 14 days. ergocalciferol (VITAMIN D2) 50,000 unit oral capsule Sig: Take 50,000 Units by mouth twice weekly (on Thursday and ). gabapentin 300 mg oral capsule Sig: Take 300 mg by mouth four times daily. glycerin (ADULT) rectal suppository Sig: Unwrap and insert 1 suppository rectally once daily as needed for constipation. magnesium oxide 400 mg oral tablet Sig: Take 400 mg by mouth once daily. metFORMIN 1,000 mg Oral tablet Sig: Take 1,000 mg by mouth two times daily. omeprazole 20 mg oral capsule,delayed release(DR/EC) Sig: Take 1 capsule by mouth once daily in the morning. Open the capsule and mix into sugar -free liquid or yogurt. ondansetron ODT 4 mg oral tablet,disintegrating Sig: Dissolve 1 tablet on tongue and swallow every six hours as needed for nausea/vomiting. oxyCODONE (immediate release) 5 mg oral tablet Sig: Take 1 tablet by mouth every three hours as needed (Pain). Indications: Pain polyethylene glycol 17 gram/dose oral powder Sig: Dissolve 17g (1 capful) into 4 ounces of liquid and drink once daily as needed for con stipation. potassium chloride SR 20 mEq oral tablet,ER particles/crystals Sig: Take 2 tablets by mouth two times daily. Patient taking differently: Take 60 mEq by mouth four times daily. simethicone chew 80 mg oral tablet,chewable Sig: Chew and swallow 1 tablet four times daily as needed for gas/bloating. sodium fluoride 1.1 % dental cream Sig: Place onto the teeth. Use to brush teeth 2 to 3 times daily as directed. Do not eat d rink or rinse mouth immediately following use. Do not swallow thyroid (ARMOUR THYROID) 30 mg oral tablet tab Sig: Take 30 mg by mouth once daily. topiramate 200 mg oral tablet Sig: Take 50 mg by mouth two times daily. Indications: Migraine Prevention torsemide 100 mg oral tablet Sig: Take 100 mg by mouth two times daily. torsemide 100 mg oral tablet Sig: Take 0.5 tablets by mouth two times daily. Resume half dose for first week post operta tive traZODone 150 mg Oral tablet Sig: Take 150 mg by mouth once daily at bedtime. ursodiol 300 mg oral capsule Sig: Take 1 capsule by mouth two times daily. Start taking two weeks after your surgery. Facility-Administered Medications: None Inpatient Medications [COMPLETED] acetaminophen (TYLENOL) tablet 1,000 mg, 1,000 mg, oral, Q8H FOLLOWED BY ac etaminophen (TYLENOL) tablet 1,000 mg, 1,000 mg, oral, Q6H PRN aspirin EC tablet 81 mg, 81 mg, oral, DAILY atenolol (TENORMIN) tablet 25 mg, 25 mg, oral, BID dextrose 50 % in water IV 25 mL, 25 mL, intravenous, PRN enoxaparin (LOVENOX) injection 40 mg, 40 mg, subcutaneous, Q12H (Scheduled) FLUoxetine (PROZAC) capsule 60 mg, 60 mg, oral, HS gabapentin (NEURONTIN) liquid 300 mg, 300 mg, oral, QID glucagon (GLUCAGEN) injection 1 mg, 1 mg, intramuscular, PRN glucose chewable tablet 16 g, 16 g, oral, PRN glycerin (ADULT) suppository 1 suppository, 1 suppository, rectal, DAILY PRN HYDROmorphone (DILAUDID) injection 0.5-1 mg, 0.5-1 mg, intravenous, Q2H PRN insulin lispro (HUMALOG) injection, , subcutaneous, MEALS and HS lidocaine (LIDODERM) 5 % patch 1 patch, 1 patch, transdermal, Q24H magnesium oxide (MAG-OX) tablet 400 mg, 400 mg, oral, DAILY [COMPLETED] metoclopramide HCl (REGLAN) injection 10 mg, 10 mg, intravenous, Q6H FOLLOWED BY metoclopramide HCl (REGLAN) injection 10 mg, 10 mg, intravenous, Q6H PRN nystatin (MYCOSTATIN) cream, , topical, BID nystatin (MYCOSTATIN) powder, , topical, BID OLANZapine (ZYPREXA) tablet 30 mg, 30 mg, oral, HS omeprazole (PRILOSEC) capsule 20 mg, 20 mg, oral, DAILY ondansetron (ZOFRAN) injection 4 mg, 4 mg, intravenous, Q12H PRN oxyCODONE (immediate release) (ROXICODONE) liquid 5-15 mg, 5-15 mg, oral, Q3H PRN pneumococcal (13-jose) conjugate vaccine (PREVNAR 13) injection 0.5 mL, 0.5 mL, intramuscula r, ONE TIME IN THE MORNING probiotic yogurt (NIKKO'S YOGURT), , oral, BID prochlorperazine (COMPAZINE) suppository 12.5-25 mg, 12.5-25 mg, rectal, Q12H PRN simethicone chew (MYLICON) tablet 80 mg, 80 mg, oral, QID PRN thyroid tablet 30 mg, 30 mg, oral, DAILY topiramate (TOPAMAX) tablet 50 mg, 50 mg, oral, BID traZODone (DESYREL) tablet 150 mg, 150 mg, oral, HS Allergies Allergen Reactions Amoxicillin Benadrilina [Diphenhydramine Hcl] Hives Parlodel [Bromocriptine] Unknown Blood clots Penicillin Hives Family History Problem Relation Heart Attack Father Diabetes Mother Alcohol/Drug Other Alcoholism in mother & father Hypertension Other M&F Asthma Other Father, brother, daughters Lung Disease Other Father Obesity Other M&F&Sister Diabetes Other Mother Arthritis Other M&F Autoimmune Disease Sister lupus Social History Social History Marital status: Single Spouse name: N/A Number of children: 1 Years of education: N/A Occupational History disabled None Social History Main Topics Smoking status: Former Smoker Smokeless tobacco: Never Used Alcohol use No Drug use: No Sexual activity: Not on file Other Topics Concern Not on file Social History Narrative Updated 11/09/15 She lives in [place] with her mother and her sister (also her caregiver) lives in an apa rtment/duplex below. She has 2 grandchildren (age 4 and 7) who live with her daughter and son-in-law Her boyfriend lives in [place] HFpEF, DM2, HTN, Sleep Apnea (unable to tolerate CPAP), Hypothyroidism, Severe Ob[facility] ([facility] lbs) Last seen by [...] program here and refer her to our wood flooring specialist who also has expertise in physical [...] are no prior exams available for comparison O: Last Vitals: BP 111/52 | Pulse 83 | Temp 36.8 C (98.2 F) | RR 18 | Ht 1.499 m (4' 1 1") | Wt 169.1 kg (372 lb 12.8 oz) | SpO2 92% | BMI 75.3 kg/(m^2) 24 Hour Vital Min/Max: Systolic (24hrs), Av , Min:107 , Max:127 Diastolic (24hrs), Av, Min:47, Max:93 Pulse Min: 77 Max: 99 Temp Min: 36.5 C (97.7 F) Max: 37 C (98.6 F) Resp Min: 16 Max: 20 SpO2 Min: 89 % Max: 96 % Intake/Output Summary (Last 24 hours) at 03/03/18 0807 Last data filed at 03/03/18 0500 Gross per 24 hour Intake 1449 ml Output 1125 ml Net 324 ml Physical Exam: General Appearance: Obese. No apparent distress. Sleepy Cardiovascular: regular rate and rhythm. Respiratory:Normal effort. Clear to ausculation Extremities: peripheral pulses intact, no edema Neurologic: Alert and oriented x 3. Psychiatric: affect, mood and behavior normal Labs No results for input(s): WBC, HB, HCT, PLT, NEUTROPERC, LYMPHPERC, MONOPERC, BASOPERC, EOSP ERC in the last 72 hours. Invalid input(s): BANDPCT No results for input(s): NA, K, CL, BICARB, BUN, CR, CA, MG, PO4 in the last 72 hours. Liver Tests: Last 72 hours (or 3 results) No results for input(s): AST, ALT, TBILI, AP, ALB, TP in the last 72 hours. Lab Results Component Value Date TSH 3.19 11/28/2016 No results found for: FREET4 Imaging: Lab Results Component Value Date CXR 11/06/2015 EXAM: CHEST 2 VIEWS 11/06/15 14:22:00 HISTORY: Shortness of breath. COMPARISON: 11/06/12 FINDINGS: The cardiomediastinal contour is normal. The lungs are clear. There is no definite pleural effusion. There is no pulmonary edema or pneumothorax. The bones are intact. IMPRESSION: Clear lungs Attending Radiologists: ONUR DAO MD Author: ONUR DAO MD I personally reviewed the images and, if necessary, edited the report. I agree with the report as now presented. Final/Electronically signed / ONUR DAO 11/06/2015 15:02 PM Assessment: Elzbieta Cristina is a 43 y.o. female with past medical history of morbid obesity, HF, HTN a nd T2DM. Current diabetic managed is provided by [facility] [employer] [facility] Dr. Franks. Her home brittany men includes Tresiba 67 units daily, Novolin N 100 3x/day with meals and Metformin 1000 mg B ID. Last A1c was 7.1 % 02/22/18. She had a laparoscopic gastric bypass and Nish-en-y gastroe nterostomy with nish limb today. She received dexamethasone 4 mg intraoperatively. We are c onsulted for postoperative inpatient glycemic management. We are recommending placing paticlifford t on an insulin drip with Endotool to give us the best insulin requirement over the next 24 hours. We will continue to monitor. 03/03/18 Denies any n/v and is tolerating her bariatric diet well. Insulin requirements have been s table. We will recommend discharging patient on home Degludec and metformin please see below . DISCHARGE RECOMMENDATIONS as of 03/03/18 Please copy to AVS. 1. Degludec (Tresiba) 28 units with dinner start tomorrow. You likely may need to titrate t his dose up (or possibly down) a few times once home. 2. Follow the Degludec (Tresiba) Protocol (see below) for dose adjustments. 3. CBGs every morning (fasting) and at lunchtime and at bedtime at minimum. 4. 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 - 2 weeks of discharge for evaluation of A1 c and glycemic management. Take CBG readings to appointment. 5. If CBGs continue greater than 180 or less than 80, call PCP BRIAN (before appointment). 6. Continue Novolin N with with meals, use home Sliding scale. Degludec (Tresiba) PROTOCOL Your long acting insulin helps control your sugar levels while you sleep. Your morning sug ar (CBG) measurement tells you how well your long acting insulin dose is working. Your target morning blood sugar is 80-130. To reach this target you should change your insulin dose every three days. If your morning blood sugar is higher than this you should increase your insulin dose. If your morning blood sugar levels is lower than this you should decrease your dose. Use the f ollowing chart to help adjust your long acting insulin dose: Average Morning blood sugar for last 3 days Change in long acting insulin dose [...] dinner for a goal of 2000 mg. I spent 25 minutes in the care of this patient.Greater than 50% of the time was spent in counseling and coordination of care re medical plan and glycemic control with team on floor. This included floor time with the team understanding the specific plan of care for this pt going forward, floor time with this patient on gallo 14A re their care, or floor time with ose gallo RN(s) caring for this pt. This patient's assessment and plan was discussed with consult attending Dr. Dino August & Fellow Myke Bergeron. Kaylee Ferguson [facility] Endocrinology, Diabetes, & Clinical Nutrition Pager [phone] aylee Ferguson [facility] - 03/02/2018 8:13 AM PDTFormatting of this note might be different from the origin al. Endocrinology Initial Consult Note Interval Events: CBGs 92-161 mg/dL Brief HPI: Elzbieta Cristina is a 43 y.o. female with a past medical history of morbid obes ity, HF, HTN and T2DM. She endorses obstructive sleep apnea and use of CPAP at night. Curre nt diabetic managed is provided by [employer] Dr. Franks. She is s/p Laparoscopic gas tric bypass and nish-en-y gastroenterostomy with nish limb today. ROS: A complete 13 system ROS done and notable for what was mentioned in HPI all other systems n egative. Past Medical and Surgical History Past Medical History: Diagnosis Date Abdominal pain [...] Dr. Andie Brian Incisional hernia repair 03/01/2015 [facility]/ Dr. Cantu. Primary fascial closure and scar excision Outpatient Medications Prior to Admission Medications Prescriptions ALPRAZolam 1 mg oral tablet Sig: Take 1 mg by mouth three times daily as needed for anxiety. CALCIUM [id number] ORAL Sig: Take 2 tablets by mouth two times daily. FLUoxetine 20 mg oral tablet Sig: Take 60 mg by mouth once daily at bedtime. NOVOLIN N 100 unit/mL subcutaneous suspension Sig: Inject under the skin (SUBC) three times daily with meals. OLANZapine 15 mg oral tablet Sig: Take 30 mg by mouth once daily at bedtime. PHENTERMINE 37.5 mg oral tablet Sig: TAKE ONE TABLET BY MOUTH ONCE DAILY IN THE MORNING BEFORE BREAKFAST TRESIBA FLEXTOUCH U-100 100 unit/mL (3 mL) subcutaneous insulin pen Sig: Inject 67 Units under the skin (SUBC) once daily at bedtime. acetaminophen 325 mg oral tablet Sig: Take 2 tablets by mouth every six hours as needed for pain. Cut tablet into small piec es. Do not crush. ascorbic acid (VITAMIN C) 500 mg Oral tablet Sig: Take 500 mg by mouth once daily. aspirin EC 81 mg oral tablet,delayed release (DR/EC) Sig: Take 81 mg by mouth once daily. atenolol 25 mg oral tablet Sig: Take 25 mg by mouth two times daily. enoxaparin 40 mg/0.4 mL subcutaneous syringe Sig: Inject 0.4 mL under the skin (SUBCUTANEOUSLY) two times daily for 14 days. ergocalciferol (VITAMIN D2) 50,000 unit oral capsule Sig: Take 50,000 Units by mouth twice weekly (on Thursday and ). gabapentin 300 mg oral capsule Sig: Take 300 mg by mouth four times daily. glycerin (ADULT) rectal suppository Sig: Unwrap and insert 1 suppository rectally once daily as needed for constipation. magnesium oxide 400 mg oral tablet Sig: Take 400 mg by mouth once daily. metFORMIN 1,000 mg Oral tablet Sig: Take 1,000 mg by mouth two times daily. omeprazole 20 mg oral capsule,delayed release(DR/EC) Sig: Take 1 capsule by mouth once daily in the morning. Open the capsule and mix into sugar -free liquid or yogurt. ondansetron ODT 4 mg oral tablet,disintegrating Sig: Dissolve 1 tablet on tongue and swallow every six hours as needed for nausea/vomiting. oxyCODONE (immediate release) 5 mg oral tablet Sig: Take 1 tablet by mouth every three hours as needed (Pain). Indications: Pain polyethylene glycol 17 gram/dose oral powder Sig: Dissolve 17g (1 capful) into 4 ounces of liquid and drink once daily as needed for con stipation. potassium chloride SR 20 mEq oral tablet,ER particles/crystals Sig: Take 2 tablets by mouth two times daily. Patient taking differently: Take 60 mEq by mouth four times daily. simethicone chew 80 mg oral tablet,chewable Sig: Chew and swallow 1 tablet four times daily as needed for gas/bloating. sodium fluoride 1.1 % dental cream Sig: Place onto the teeth. Use to brush teeth 2 to 3 times daily as directed. Do not eat d rink or rinse mouth immediately following use. Do not swallow thyroid (ARMOUR THYROID) 30 mg oral tablet tab Sig: Take 30 mg by mouth once daily. topiramate 200 mg oral tablet Sig: Take 50 mg by mouth two times daily. Indications: Migraine Prevention torsemide 100 mg oral tablet Sig: Take 100 mg by mouth two times daily. traZODone 150 mg Oral tablet Sig: Take 150 mg by mouth once daily at bedtime. ursodiol 300 mg oral capsule Sig: Take 1 capsule by mouth two times daily. Start taking two weeks after your surgery. Facility-Administered Medications: None Inpatient Medications [COMPLETED] acetaminophen (TYLENOL) tablet 1,000 mg, 1,000 mg, oral, Q8H FOLLOWED BY ac etaminophen (TYLENOL) tablet 1,000 mg, 1,000 mg, oral, Q6H PRN aspirin EC tablet 81 mg, 81 mg, oral, DAILY atenolol (TENORMIN) tablet 25 mg, 25 mg, oral, BID cyanocobalamin (VITAMIN B-12) injection 1,000 mcg, 1,000 mcg, subcutaneous, DAILY dextrose 5%-NaCl 0.45% IV infusion, 5-400 mL, intravenous, PRN dextrose 50 % in water IV 15-150 mL, 15-150 mL, intravenous, PRN enoxaparin (LOVENOX) injection 40 mg, 40 mg, subcutaneous, Q12H (Scheduled) FLUoxetine (PROZAC) capsule 60 mg, 60 mg, oral, HS gabapentin (NEURONTIN) liquid 300 mg, 300 mg, oral, QID glucose chewable tablet 4-40 g, 4-40 g, oral, PRN glycerin (ADULT) suppository 1 suppository, 1 suppository, rectal, DAILY PRN HYDROmorphone (DILAUDID) injection 0.5-1 mg, 0.5-1 mg, intravenous, Q1H PRN insulin regular bolus from continuous infusion 1-50 Units, 1-50 Units, intravenous, NEED ED (BOLUS) insulin regular in NaCl 0.9% IV infusion (1 unit/mL), 0.1-50 Units/hr, intravenous, CONTINU OUS lidocaine (LIDODERM) 5 % patch 1 patch, 1 patch, transdermal, Q24H magnesium oxide (MAG-OX) tablet 400 mg, 400 mg, oral, DAILY metFORMIN (GLUCOPHAGE) tablet 1,000 mg, 1,000 mg, oral, BID metoclopramide HCl (REGLAN) injection 10 mg, 10 mg, intravenous, Q6H FOLLOWED BY metocl opramide HCl (REGLAN) injection 10 mg, 10 mg, intravenous, Q6H PRN nystatin (MYCOSTATIN) cream, , topical, BID nystatin (MYCOSTATIN) powder, , topical, BID OLANZapine (ZYPREXA) tablet 30 mg, 30 mg, oral, HS omeprazole (PRILOSEC) capsule 20 mg, 20 mg, oral, DAILY ondansetron (ZOFRAN) injection 4 mg, 4 mg, intravenous, Q12H ondansetron (ZOFRAN) injection 4 mg, 4 mg, intravenous, Q12H PRN oxyCODONE (immediate release) (ROXICODONE) liquid 5-15 mg, 5-15 mg, oral, Q3H PRN pneumococcal (13-jose) conjugate vaccine (PREVNAR 13) injection 0.5 mL, 0.5 mL, intramuscula r, ONE TIME IN THE MORNING probiotic yogurt (NIKKO'S YOGURT), , oral, BID prochlorperazine (COMPAZINE) suppository 12.5-25 mg, 12.5-25 mg, rectal, Q12H PRN simethicone chew (MYLICON) tablet 80 mg, 80 mg, oral, QID PRN thiamine (VITAMIN B-1) injection 100 mg, 100 mg, intravenous, DAILY thyroid tablet 30 mg, 30 mg, oral, DAILY topiramate (TOPAMAX) tablet 50 mg, 50 mg, oral, BID traZODone (DESYREL) tablet 150 mg, 150 mg, oral, HS Allergies Allergen Reactions Amoxicillin Benadrilina [Diphenhydramine Hcl] Hives Parlodel [Bromocriptine] Unknown Blood clots Penicillin Hives Family History Problem Relation Heart Attack Father Diabetes Mother Alcohol/Drug Other Alcoholism in mother & father Hypertension Other M&F Asthma Other Father, brother, daughters Lung Disease Other Father Obesity Other M&F&Sister Diabetes Other Mother Arthritis Other M&F Autoimmune Disease Sister lupus Social History Social History Marital status: Single Spouse name: N/A Number of children: 1 Years of education: N/A Occupational History disabled None Social History Main Topics Smoking status: Former Smoker Smokeless tobacco: Never Used Alcohol use No Drug use: No Sexual activity: Not on file Other Topics Concern Not on file Social History Narrative Updated 11/09/15 She lives in [place] with her mother and her sister (also her caregiver) lives in an apa rtment/duplex below. She has 2 grandchildren (age 4 and 7) who live with her daughter and son-in-law Her boyfriend lives in [place] HFpEF, DM2, HTN, Sleep Apnea (unable to tolerate CPAP), Hypothyroidism, Severe Obesity ([facility] max weight 495 lbs) Last seen by [...] program here and refer her to our wood flooring specialist who also has expertise in physical [...] are no prior exams available for comparison O: Last Vitals: BP 115/63 | Pulse 78 | Temp 36.6 C (97.9 F) | RR 16 | Ht 1.499 m (4' 1 1") | Wt 169.1 kg (372 lb 12.8 oz) | SpO2 96% | BMI 75.3 kg/(m^2) 24 Hour Vital Min/Max: Systolic (24hrs), Av , Min:106 , Max:152 Diastolic (24hrs), Av, Min:63, Max:85 Pulse Min: 61 Max: 88 Temp Min: 36.5 C (97.7 F) Max: 37 C (98.6 F) Resp Min: 9 Max: 23 SpO2 Min: 89 % Max: 100 % Intake/Output Summary (Last 24 hours) at 03/02/18 0813 Last data filed at 03/02/18 0700 Gross per 24 hour Intake 3097.85 ml Output 1040 ml Net 2057.85 ml Physical Exam: General Appearance: Obese. No apparent distress. Sleepy Cardiovascular: regular rate and rhythm. Respiratory:Normal effort. Clear to ausculation Extremities: peripheral pulses intact, no edema Neurologic: Alert and oriented x 3. Psychiatric: affect, mood and behavior normal Labs No results for input(s): WBC, HB, HCT, PLT, NEUTROPERC, LYMPHPERC, MONOPERC, BASOPERC, EOSP ERC in the last 72 hours. Invalid input(s): BANDPCT No results for input(s): NA, K, CL, BICARB, BUN, CR, CA, MG, PO4 in the last 72 hours. Liver Tests: Last 72 hours (or 3 results) No results for input(s): AST, ALT, TBILI, AP, ALB, TP in the last 72 hours. Lab Results Component Value Date TSH 3.19 11/28/2016 No results found for: FREET4 Imaging: Lab Results Component Value Date CXR 11/06/2015 EXAM: CHEST 2 VIEWS 11/06/15 14:22:00 HISTORY: Shortness of breath. COMPARISON: 11/06/12 FINDINGS: The cardiomediastinal contour is normal. The lungs are clear. There is no definite pleural effusion. There is no pulmonary edema or pneumothorax. The bones are intact. IMPRESSION: Clear lungs Attending Radiologists: ONUR DAO MD Author: ONUR DAO MD I personally reviewed the images and, if necessary, edited the report. I agree with the report as now presented. Final/Electronically signed / ONUR DAO 11/06/2015 15:02 PM Assessment: Elzbieta Cristina is a 43 y.o. female with past medical history of morbid obesity, HF, HTN a nd T2DM. Current diabetic managed is provided by [employer] Dr. Franks. Her home brittany men includes Tresiba 67 units daily, Novolin N 100 3x/day with meals and Metformin 1000 mg B ID. Last A1c was 7.1 % 02/22/18. She had a laparoscopic gastric bypass and Nish-en-y gastroe nterostomy with nish limb today. She received dexamethasone 4 mg intraoperatively. We are c onsulted for postoperative inpatient glycemic management. We are recommending placing avinash t on an insulin drip with Endotool to give us the best insulin requirement over the next 24 hours. We will continue to monitor. 03/02/18 Patient doing well POD 2. Denies any n/v and is tolerating her bariatric diet well. Insuli n requirements have been stable. We will consider transition off Endotool insulin infusion. Recommendations: 03/02/18 -Transition Endotool insulin infusion: - Give glargine 28 units SQ x 1 dose. - Continue Endotool infusion and Endotool CBG protocol for 3 hours (transition) after glarg ine 28 units SQ x 1 is given per protocol, then stop Endotool only if CBGs have been less th an 200 for two consecutive hours; At end of transition, if CBG is greater than 200, continue Endotool infusion and Endotool CBG protocol until CBGs are less than 200 for two consecutiv e hours, then discontinue Endotool without any further transition. Please note if patient ea ts a meal just prior or during Endotool transition, this may extend the time of transition t o 4 hours. If close to mealtime, suggest waiting until after meal to start transition. - Mild SSI, CBGs ac & hs & 0200 once Endotool is stopped - Discharge recommendations will follow closer to discharge [facility] Endocrinology, Diabetes, & Clinical Nutrition Pager [phone] I spent 25 minutes in the care of this patient.Greater than 50% of the time was spent in counseling and coordination of care re medical plan and glycemic control with team on floor. This included floor time with the team understanding the specific plan of care for this pt going forward, floor time with this patient on gallo 14A re their care, or floor time with th ose gallo RN(s) caring for this pt. This patient's assessment and plan was discussed with consult attending Dr. Dino August & Fellow Myke Bergeron. P M PDTKaylee Ferguson AGACNP-BC - 03/01/2018 4:42 PM PDTFormatting of this note might be diff erent from the original. Endocrinology Initial Consult Note Reason for consult: Postoperative inpatient glycemic management Consult Attending: Dino August MD Requesting Attending: Bertha Castanon MD Brief HPI: Elzbieta Cristina is a 43 y.o. female with a past medical history of morbid obes ity, HF, HTN and T2DM. She endorses obstructive sleep apnea and use of CPAP at night. Curre nt diabetic managed is provided by [employer] Dr. Franks. She is s/p Laparoscopic gas tric bypass and nish-en-y gastroenterostomy with nish limb today. ROS: A complete 13 system ROS done and notable for what was mentioned in HPI all other systems n egative. Past Medical and Surgical History Past Medical History: Diagnosis Date Abdominal pain [...] Dr. Andie Brian Incisional hernia repair 03/01/2015 [facility]/ Dr. Cantu. Primary fascial closure and scar excision Outpatient Medications Prior to Admission Medications Prescriptions ALPRAZolam 1 mg oral tablet Sig: Take 1 mg by mouth three times daily as needed for anxiety. CALCIUM [id number]-GENIS ORAL Sig: Take 2 tablets by mouth two times daily. FLUoxetine 20 mg oral tablet Sig: Take 60 mg by mouth once daily at bedtime. NOVOLIN N 100 unit/mL subcutaneous suspension Sig: Inject under the skin (SUBC) three times daily with meals. OLANZapine 15 mg oral tablet Sig: Take 30 mg by mouth once daily at bedtime. PHENTERMINE 37.5 mg oral tablet Sig: TAKE ONE TABLET BY MOUTH ONCE DAILY IN THE MORNING BEFORE BREAKFAST TRESIBA FLEXTOUCH U-100 100 unit/mL (3 mL) subcutaneous insulin pen Sig: Inject 67 Units under the skin (SUBC) once daily at bedtime. acetaminophen 325 mg oral tablet Sig: Take 2 tablets by mouth every six hours as needed for pain. Cut tablet into small piec es. Do not crush. ascorbic acid (VITAMIN C) 500 mg Oral tablet Sig: Take 500 mg by mouth once daily. aspirin EC 81 mg oral tablet,delayed release (DR/EC) Sig: Take 81 mg by mouth once daily. atenolol 25 mg oral tablet Sig: Take 25 mg by mouth two times daily. enoxaparin 40 mg/0.4 mL subcutaneous syringe Sig: Inject 0.4 mL under the skin (SUBCUTANEOUSLY) two times daily for 14 days. ergocalciferol (VITAMIN D2) 50,000 unit oral capsule Sig: Take 50,000 Units by mouth twice weekly (on Thursday and ). gabapentin 300 mg oral capsule Sig: Take 300 mg by mouth four times daily. glycerin (ADULT) rectal suppository Sig: Unwrap and insert 1 suppository rectally once daily as needed for constipation. magnesium oxide 400 mg oral tablet Sig: Take 400 mg by mouth once daily. metFORMIN 1,000 mg Oral tablet Sig: Take 1,000 mg by mouth two times daily. omeprazole 20 mg oral capsule,delayed release(DR/EC) Sig: Take 1 capsule by mouth once daily in the morning. Open the capsule and mix into sugar -free liquid or yogurt. ondansetron ODT 4 mg oral tablet,disintegrating Sig: Dissolve 1 tablet on tongue and swallow every six hours as needed for nausea/vomiting. oxyCODONE (immediate release) 5 mg oral tablet Sig: Take 1 tablet by mouth every three hours as needed (Pain). Indications: Pain polyethylene glycol 17 gram/dose oral powder Sig: Dissolve 17g (1 capful) into 4 ounces of liquid and drink once daily as needed for con stipation. potassium chloride SR 20 mEq oral tablet,ER particles/crystals Sig: Take 2 tablets by mouth two times daily. Patient taking differently: Take 60 mEq by mouth four times daily. simethicone chew 80 mg oral tablet,chewable Sig: Chew and swallow 1 tablet four times daily as needed for gas/bloating. sodium fluoride 1.1 % dental cream Sig: Place onto the teeth. Use to brush teeth 2 to 3 times daily as directed. Do not eat d rink or rinse mouth immediately following use. Do not swallow thyroid (ARMOUR THYROID) 30 mg oral tablet tab Sig: Take 30 mg by mouth once daily. topiramate 200 mg oral tablet Sig: Take 50 mg by mouth two times daily. Indications: Migraine Prevention torsemide 100 mg oral tablet Sig: Take 100 mg by mouth two times daily. traZODone 150 mg Oral tablet Sig: Take 150 mg by mouth once daily at bedtime. ursodiol 300 mg oral capsule Sig: Take 1 capsule by mouth two times daily. Start taking two weeks after your surgery. Facility-Administered Medications: None Inpatient Medications acetaminophen (TYLENOL) tablet 1,000 mg, 1,000 mg, oral, Q8H FOLLOWED BY [START ON 2017] acetaminophen (TYLENOL) tablet 1,000 mg, 1,000 mg, oral, Q6H PRN [START ON 03/02/2018] aspirin EC tablet 81 mg, 81 mg, oral, DAILY atenolol (TENORMIN) tablet 25 mg, 25 mg, oral, BID celecoxib (CELEBREX) capsule 200 mg, 200 mg, oral, BID [START ON 03/02/2018] cyanocobalamin (VITAMIN B-12) injection 1,000 mcg, 1,000 mcg, subcutane ous, DAILY dextrose 5%-NaCl 0.45% IV infusion, 5-400 mL, intravenous, PRN dextrose 50 % in water IV 15-150 mL, 15-150 mL, intravenous, PRN enoxaparin (LOVENOX) injection 40 mg, 40 mg, subcutaneous, Q12H (Scheduled) FLUoxetine (PROZAC) capsule 60 mg, 60 mg, oral, HS gabapentin (NEURONTIN) liquid 300 mg, 300 mg, oral, QID glucose chewable tablet 4-40 g, 4-40 g, oral, PRN glycerin (ADULT) suppository 1 suppository, 1 suppository, rectal, DAILY PRN HYDROmorphone (DILAUDID) injection 0.5-1 mg, 0.5-1 mg, intravenous, Q1H PRN insulin regular bolus from continuous infusion 1-50 Units, 1-50 Units, intravenous, NEED ED (BOLUS) insulin regular in NaCl 0.9% IV infusion (1 unit/mL), 0.1-50 Units/hr, intravenous, CONTINU OUS lactated Ringers IV, 150 mL/hr, intravenous, CONTINUOUS magnesium oxide (MAG-OX) tablet 400 mg, 400 mg, oral, DAILY metFORMIN (GLUCOPHAGE) tablet 1,000 mg, 1,000 mg, oral, BID metoclopramide HCl (REGLAN) injection 10 mg, 10 mg, intravenous, Q6H FOLLOWED BY [START ON 03/02/2018] metoclopramide HCl (REGLAN) injection 10 mg, 10 mg, intravenous, Q6H PRN nystatin (MYCOSTATIN) cream, , topical, BID nystatin (MYCOSTATIN) powder, , topical, BID OLANZapine (ZYPREXA) tablet 30 mg, 30 mg, oral, HS omeprazole (PRILOSEC) capsule 20 mg, 20 mg, oral, DAILY ondansetron (ZOFRAN) injection 4 mg, 4 mg, intravenous, Q12H ondansetron (ZOFRAN) injection 4 mg, 4 mg, intravenous, Q12H PRN oxyCODONE (immediate release) (ROXICODONE) liquid 5-15 mg, 5-15 mg, oral, Q3H PRN [START ON 03/02/2018] probiotic yogurt (NIKKO'S YOGURT), , oral, BID prochlorperazine (COMPAZINE) suppository 12.5-25 mg, 12.5-25 mg, rectal, Q12H PRN simethicone chew (MYLICON) tablet 80 mg, 80 mg, oral, QID PRN [START ON 03/02/2018] thiamine (VITAMIN B-1) injection 100 mg, 100 mg, intravenous, DAILY [START ON 03/02/2018] thyroid tablet 30 mg, 30 mg, oral, DAILY topiramate (TOPAMAX) tablet 50 mg, 50 mg, oral, BID traZODone (DESYREL) tablet 150 mg, 150 mg, oral, HS Allergies Allergen Reactions Amoxicillin Benadrilina [Diphenhydramine Hcl] Hives Parlodel [Bromocriptine] Unknown Blood clots Penicillin Hives Family History Problem Relation Heart Attack Father Diabetes Mother Alcohol/Drug Other Alcoholism in mother & father Hypertension Other M&F Asthma Other Father, brother, daughters Lung Disease Other Father Obesity Other M&F&Sister Diabetes Other Mother Arthritis Other M&F Autoimmune Disease Sister lupus Social History Social History Marital status: Single Spouse name: N/A Number of children: 1 Years of education: N/A Occupational History disabled None Social History Main Topics Smoking status: Former Smoker Smokeless tobacco: Never Used Alcohol use No Drug use: No Sexual activity: Not on file Other Topics Concern Not on file Social History Narrative Updated 11/09/15 She lives in [place] with her mother and her sister (also her caregiver) lives in an apa rtment/duplex below. She has 2 grandchildren (age 4 and 7) who live with her daughter and son-in-law Her boyfriend lives in [place] HFpEF, DM2, HTN, Sleep Apnea (unable to [...] program here and refer her to our wood flooring specialist who also has expertise in physical [...] are no prior exams available for comparison O: Last Vitals: BP 141/76 | Pulse 77 | Temp 36.5 C (97.7 F) | RR 16 | Ht 1.499 m (4' 1 1") | Wt 169.1 kg (372 lb 12.8 oz) | SpO2 98% | BMI 75.3 kg/(m^2) 24 Hour Vital Min/Max: Systolic (24hrs), Av , Min:120 , Max:152 Diastolic (24hrs), Av, Min:64, Max:85 Pulse Min: 61 Max: 77 Temp Min: 36.3 C (97.3 F) Max: 37 C (98.6 F) Resp Min: 9 Max: 23 SpO2 Min: 93 % Max: 100 % Intake/Output Summary (Last 24 hours) at 03/01/18 1643 Last data filed at 03/01/18 1600 Gross per 24 hour Intake 1872.24 ml Output 40 ml Net 1832.24 ml Physical Exam: General Appearance: Obese. No apparent distress. Sleepy Cardiovascular: regular rate and rhythm. Respiratory:Normal effort. Clear to ausculation Extremities: peripheral pulses intact, no edema Neurologic: Alert and oriented x 3. Psychiatric: affect, mood and behavior normal Labs No results for input(s): WBC, HB, HCT, PLT, NEUTROPERC, LYMPHPERC, MONOPERC, BASOPERC, EOSP ERC in the last 72 hours. Invalid input(s): BANDPCT No results for input(s): NA, K, CL, BICARB, BUN, CR, CA, MG, PO4 in the last 72 hours. Liver Tests: Last 72 hours (or 3 results) No results for input(s): AST, ALT, TBILI, AP, ALB, TP in the last 72 hours. Lab Results Component Value Date TSH 3.19 11/28/2016 No results found for: FREET4 Imaging: Lab Results Component Value Date CXR 11/06/2015 EXAM: CHEST 2 VIEWS 11/06/15 14:22:00 HISTORY: Shortness of breath. COMPARISON: 11/06/12 FINDINGS: The cardiomediastinal contour is normal. The lungs are clear. There is no definite pleural effusion. There is no pulmonary edema or pneumothorax. The bones are intact. IMPRESSION: Clear lungs Attending Radiologists: ONUR DAO MD Author: ONUR DAO MD I personally reviewed the images and, if necessary, edited the report. I agree with the report as now presented. Final/Electronically signed / ONUR DAO 11/06/2015 15:02 PM Assessment: Elzbieta Cristina is a 43 y.o. female with past medical history of morbid obesity, HF, HTN a nd T2DM. Current diabetic managed is provided by [employer] Dr. Franks. Her home brittany men includes Tresiba 67 units daily, Novolin N 100 3x/day with meals and Metformin 1000 mg B ID. Last A1c was 7.1 % 02/22/18. She had a laparoscopic gastric bypass and Nish-en-y gastroe nterostomy with nish limb today. She received dexamethasone 4 mg intraoperatively. We are c onsulted for postoperative inpatient glycemic management. We are recommending placing patien t on an insulin drip with Endotool to give us the best insulin requirement over the next 24 hours. We will continue to monitor. Recommendations: Place on Endotool. Kaylee Ferguson [facility] Endocrinology, Diabetes, & Clinical Nutrition Pager [phone] I spent 40 minutes in the care of this patient.Greater than 50% of the time was spent in counseling and coordination of care re medical plan and glycemic control with team on floor . This included floor time with the team understanding the specific plan of care for this pt going forward, floor time with this patient on gallo 14A re their care, or floor time with t delmar gallo RN(s) caring for this pt. This patient's assessment and plan was discussed with consult attending Dr. Dino August & Fellow Myke Bergeron. P M PDTdocumented in this encounter Miscellaneous Notes Plan of Care - Chirag Harvey RN - 03/03/2018 1:30 PM PDTNursing Discharge Note Discharge Date: 03/03/2018 Additional Discharge Information: Educated patient on AVS and all discharge instructions. Kat borges had previously self-administered lovenox injections and she was able to demonstrate s afe administration for her morning dose. Educated patient on signs/symptoms of infection t o watch for and when/how to notify the doctor. The knife sharpener spoke with her about her changes to her insulin regimen. Patient verbalized understanding. All peripheral lines rem lisbet. Patient voiding, passing flatus and pain adequately managed. All questions answered by nursing staff. Discharge Nurse: CHIRAG HARVEY RN andoff - Daniella Godwin RN - 03/03/2018 6:50 AM PDTNursing Handoff [facility] IP NURSE HANDOFF: Jiang hospital course events: Nish en Y gastric bypass PmHx of morbid obesity, HF, HTN and DM2, Bipolar, Hypothyroid, TIA COMFORT/ANXIETY/BEHAVIOR Patient/Family Target: Pain and nausea control Progress to Target: Improving As evidenced by: Elzbieta states her pain is much better today. Have been using 15mg of PO Oxy Q3hrs and the scheduled Toradol. Elzbieta denied nausea this shift. She did have some reflux which resolved with Simethicone an d Zofran. NURSING ASSESSMENT & RECOMMENDATIONS FORWARD Nursing Assessment of Patient Stability Risk: Moderately unstable Recommendations Forward: - Mostly taking in clears overnight. Can have fulls. - One person assist with walker when getting out of bed - 5 lap sites with bruising - Yeast in folds - nystatin powder applied. Elzbieta does not like to use the Nystatin cream. Barriers to discharge: DC today lan of Care - Rositone Macy reyez - 03/02/2018 2:44 PM PDTProblem: Nutrition Interventions Intervention: Nutrition Education Nutrition Intervention: Consult received on 03/02/2018 for Post-Bariatric diet education. Provided post-surgery diet progression (Stages 1 and 2) education with handout including sa mple menus, restricted foods, and daily protein & fluid goals. Emphasized the following: -Include protein with all meals & snacks -Choose foods & beverages with < 14 g sugar & < 5 g fat per serving -Begin fluids from meals by 30 minutes before and after -Sip fluids throughout the day - 64 oz/day (non-caloric, non-caffeinated, non-carbonated) -Practice mindful eating Ensured that patient does have follow up appointment with outpatient dietitian where RD is to discuss stages 3 and 4 of post-surgery diet restrictions and address any follow-up questi ons. Pt also given contact information for outpatient dietitian office. Pt verbalized unders tanding of education, expect good compliance. Macy [employer] Pager #[phone] andoff - Jasmin Godwin RN - 03/02/2018 6:03 AM PDTNursing Handoff [place] IP NURSE HANDOFF: Jiang hospital course events: Nish en Y gastric bypass PmHx of morbid obesity, HF, HTN and DM2, Bipolar, Hypothyroid, TIA COMFORT/ANXIETY/BEHAVIOR Patient/Family Target: Pain and nausea control Progress to Target: No Change As evidenced by: Elzbieta has been painful and nauseated since arriving to the floor. Oxycodone given Q3hrs, IV hydromorphone frequently for BTP, Has scheduled acetaminophen, gabapentin, and celebrex. Elzbieta's pain has remained around a 7 this shift. Elzbieta has been mildly nauseated. Gave her scheduled and PRN reglan and ondansetron. RESTORATIVE MEASURES/SELF-MANAGEMENT Patient/Family Target: Elzbieta will urinate Progress to Target: Improving As evidenced by: Elzbieta has been urinating 300 - 350mLs each time she voids. Unable to perform accurate b ladder scan d/t body habitus. NURSING ASSESSMENT & RECOMMENDATIONS FORWARD Nursing Assessment of Patient Stability Risk: Moderately unstable Recommendations Forward: Sips of clear overnight. One person assist with walker when getting out of bed 2 PIVs 5 lap sites Yeast in folds - nystatin cream and powder applied. Elzbieta does not like to use the cream. Barriers to discharge: Advance diet today Pain and nausea managment Arianne - Ra jose manuel Castaneda RN - 03/01/2018 6:00 PM PDTNursing Handoff [facility] IP NURSE HANDOFF: Jiang hospital course events: Nish en Y gastric bypass PmHx of morbid obesity, HF, HTN and DM2 COMFORT/ANXIETY/BEHAVIOR Patient/Family Target: Pain and nausea control Progress to Target: Improving As evidenced by: Elzbieta was painful and nauseated when she arrived on the floor. Gave oxycodone, hydromorp alejo, acetaminophen, gabapentin, celebrex. Elzbieta's pain came down from a 10 to a 7. Elzbieta has been mildly nauseated. Gave her scheduled reglan and ondansetron. RESTORATIVE MEASURES/SELF-MANAGEMENT Patient/Family Target: Elzbieta will urinate Progress to Target: Improving As evidenced by: Elzbieta peed 350 after arriving to the floor. Unable to perform accurate bladder scan d/t body habitus. NURSING ASSESSMENT & RECOMMENDATIONS FORWARD Nursing Assessment of Patient Stability Risk: Moderately unstable Recommendations Forward: NPO - having a few ice chips One person assist with walker when getting out of bed 2 PIVs 5 lap sites Yeast in folds - nystatin cream and powder applied Barriers to discharge: Fresh post op Advance diet Pain control Arianne - Cande Oliveros, KELSIE - 03/01/2018 1:04 PM PDTMegagandeep Phase I Discharge Criteria (Stable For Transfer): Yes Major deviations/events or pertinent findings of katey-operative stay: Nausea- treated with and resolved by phenergan. Anticipated post-op needs/devices/follow up: Pain control Post-Op Diagnosis Codes: * Morbid obesity (HCC) [E66.01] Surgical Procedure Planned - Actual Procedure Performed: Procedure(s) with comments: LAPAROSCOPIC NISH-EN-Y GASTRIC BYPASS - LAPAROSCOPIC NISH EN Y GASTRIC BYPASS Anesthesia: General Length of procedure: In Room/Out of Room: 3 Hr 38 Min 38 Sec Surgeon(s) and Role: * Bertha Castanon MD - Primary * Eldon Wagner MD - Assisting OR positioning comments: Supine Neuro: POSS Sedation Level: Frequently Drowsy, Arousable, Drifts Off to Sleep during Conve rsation Last pain medication given: Pain medication totals: See MAR Additional pain medication information: Functional Epidural: N/A AUTOTRANSFUSIONIST: N/A Respiratory: RR: 12, O2 Sat: 100 %, O2 Delivery: Simple mask Breath Sounds: WDL Except ALFRED: LLL: RUL: RLL: AMARA Yes Comment: Pt has CPAP from home Cardiac: BP: 146/72 HR: 65 GI: Nausea/Vomiting Status: Yes- resolved with phenergan Signs/Symptoms: continuous nausea Interventions: slow, deep breathing encouraged;HOB elevated;antiemetic given Assessment: Comments: : Last void: Bladder scan at 1200 for 106 mL Contact Name: Dimple Contact Number: [phone] Family contacted: Yes Comment Belongings: with family documented in this encounter Plan of Treatment +--------+---------+ + + + | Date | Type | Specialty | Care Team | Description | +--------+---------+ + + + | 06/08/ | Office | Plastic Surgery | Antoinette Hale, | | | 2019 | Visit | | [address] | | | | | | [address] | | | | | | [place], [place] | | | | | | [address] | | | | | | [phone] | | | | | | | [...] POC | | PDT | over, adult ([facility]) | results section. | + +--------+ + + + | CAPILLARY BLOOD | Routin | 03/03/2018 | Morbid obesity | Results for this | | GLUCOSE (NO CHG), | e | 6:28 AM | with BMI of 70 and | procedure are in the | | POC | | PDT | over, adult ([facility]) | results section. | + +--------+ + + + | CAPILLARY BLOOD | Routin | 03/02/2018 | Morbid obesity | Results for this | | GLUCOSE (NO CHG), | e | 9:17 PM | with BMI of 70 and | procedure are in the | | POC | | PDT | over, adult ([facility]) | results section. | + +--------+ + + + | CAPILLARY BLOOD | Routin | 03/02/2018 | Morbid obesity | Results for this | | GLUCOSE (NO CHG), | e | 6:50 PM | with BMI of 70 and | procedure are in the | | POC | | PDT | over, adult ([facility]) | results section. | + +--------+ + + + | CAPILLARY BLOOD | Routin | 03/02/2018 | Morbid obesity | Results for this | | GLUCOSE (NO CHG), | e | 3:46 PM | with BMI of 70 and | procedure are in the | | POC | | PDT | over, adult ([facility]) | results section. | + +--------+ + + + | CAPILLARY BLOOD | Routin | 03/02/2018 | Morbid obesity | Results for this | | GLUCOSE (NO CHG), | e | 2:36 PM | with BMI of 70 and | procedure are in the | | POC | | PDT | over, adult ([facility]) | results section. | + +--------+ + + + | CAPILLARY BLOOD | Routin | 03/02/2018 | Morbid obesity | Results for this | | GLUCOSE (NO CHG), | e | 1:33 PM | with BMI of 70 and | procedure are in the | | POC | | PDT | over, adult ([facility]) | results section. | + +--------+ + + + | CAPILLARY BLOOD | Routin | 03/02/2018 | Morbid obesity | Results for this | | GLUCOSE (NO CHG), | e | 11:36 AM | with BMI of 70 and | procedure are in the | | POC | | PDT | over, adult ([facility]) | results section. | + +--------+ + + + | CAPILLARY BLOOD | Routin | 03/02/2018 | Morbid obesity | Results for this | | GLUCOSE (NO CHG), | e | 10:32 AM | with BMI of 70 and | procedure are in the | | POC | | PDT | over, adult ([facility]) | results section. | + +--------+ + + + | CAPILLARY BLOOD | Routin | 03/02/2018 | Morbid obesity | Results for this | | GLUCOSE (NO CHG), | e | 9:23 AM | with BMI of 70 and | procedure are in the | | POC | | PDT | over, adult ([facility]) | results section. | + +--------+ + + + | CAPILLARY BLOOD | Routin | 03/02/2018 | Morbid obesity | Results for this | | GLUCOSE (NO CHG), | e | 8:36 AM | with BMI of 70 and | procedure are in the | | POC | | PDT | over, adult ([facility]) | results section. | + +--------+ + + + | CAPILLARY BLOOD | Routin | 03/02/2018 | Morbid obesity | Results for this | | GLUCOSE (NO CHG), | e | 7:35 AM | with BMI of 70 and | procedure are in the | | POC | | PDT | over, adult ([facility]) | results section. | + +--------+ + + + | CAPILLARY BLOOD | Routin | 03/02/2018 | Morbid obesity | Results for this | | GLUCOSE (NO CHG), | e | 6:33 AM | with BMI of 70 and | procedure are in the | | POC | | PDT | over, adult ([facility]) | results section. | + +--------+ + + + | CAPILLARY BLOOD | Routin | 03/02/2018 | Morbid obesity | Results for this | | GLUCOSE (NO CHG), | e | 5:28 AM | with BMI of 70 and | procedure are in the | | POC | | PDT | over, adult ([facility]) | results section. | + +--------+ + + + | CAPILLARY BLOOD | Routin | 03/02/2018 | Morbid obesity | Results for this | | GLUCOSE (NO CHG), | e | 4:36 AM | with BMI of 70 and | procedure are in the | | POC | | PDT | over, adult ([facility]) | results section. | + +--------+ + + + | CAPILLARY BLOOD | Routin | 03/02/2018 | Morbid obesity | Results for this | | GLUCOSE (NO CHG), | e | 2:46 AM | with BMI of 70 and | procedure are in the | | POC | | PDT | over, adult ([facility]) | results section. | + +--------+ + + + | CAPILLARY BLOOD | Routin | 03/02/2018 | Morbid obesity | Results for this | | GLUCOSE (NO CHG), | e | 12:32 AM | with BMI of 70 and | procedure are in the | | POC | | PDT | over, adult ([facility]) | results section. | + +--------+ + + + | CAPILLARY BLOOD | Routin | 03/01/2018 | Morbid obesity | Results for this | | GLUCOSE (NO CHG), | e | 10:31 PM | with BMI of 70 and | procedure are in the | | POC | | PDT | over, adult ([facility]) | results section. | + +--------+ + + + | CAPILLARY BLOOD | Routin | 03/01/2018 | Morbid obesity | Results for this | | GLUCOSE (NO CHG), | e | 8:21 PM | with BMI of 70 and | procedure are in the | | POC | | PDT | over, adult ([facility]) | results section. | + [...] POC | | PDT | over, adult ([facility]) | results section. | + +--------+ + + + | CAPILLARY BLOOD | Routin | 03/01/2018 | Morbid obesity | Results for this | | GLUCOSE (NO CHG), | e | 3:31 PM | with BMI of 70 and | procedure are in the | | POC | | PDT | over, adult ([facility]) | results section. | + +--------+ + + + | CAPILLARY BLOOD | Routin | 03/01/2018 | Morbid obesity | Results for this | | GLUCOSE (NO CHG), | e | 3:29 PM | with BMI of 70 and | procedure are in the | | POC | | PDT | over, adult ([facility]) | results section. | + +--------+ + + + | CAPILLARY BLOOD | Routin | 03/01/2018 | Morbid obesity | Results for this | | GLUCOSE (NO CHG), | e | 2:30 PM | with BMI of 70 and | procedure are in the | | POC | | PDT | over, adult ([facility]) | results section. | + +--------+ + + + | CAPILLARY BLOOD | Routin | 03/01/2018 | Morbid obesity | Results for this | | GLUCOSE (NO CHG), | e | 1:35 PM | with BMI of 70 and | procedure are in the | | POC | | PDT | over, adult ([facility]) | results section. | + +--------+ + + + | CAPILLARY BLOOD | Routin | 03/01/2018 | Morbid obesity | Results for this | | GLUCOSE (NO CHG), | e | 12:16 PM | with BMI of 70 and | procedure are in the | | POC | | PDT | over, adult ([facility]) | results section. | + [...] [facility] | [address] | [place], [place] | | | [facility] | [address] | [address] | | | TESTS | | | [...] + | [facility] | [address] | [place], [place] | | | [facility] | [address] | [address] | | | TESTS | | | [...] + + + | [facility] | [address] | [place], [place] | | | [facility] | [address] | [address] | | | TESTS | | | [...] [facility] | [address] | [place], [place] | | | [facility] | [address] | [address] | | | TESTS | | | [...] + | [facility] | [address] | [place], [place] | | | [facility] | [address] | [address] | | | TESTS | | | [...] | [facility] | [address] | [place], [place] | | | [facility] | [address] | [address] | | | TESTS | | | [...] [facility] | [address] | [place], [place] | | | [facility] | [address] | [address] | | | TESTS | | | [...] | [facility] | [address] | [place], [place] | | | [facility] | [address] | [address] | | | TESTS | | | [...] | [facility] | [address] | [place], [place] | | | [facility] | [address] | [address] | | | TESTS | | | [...] [facility] | [address] | [place], [place] | | | [facility] | [address] | [address] | | | TESTS | | | [...] + | [facility] | [address] [facility] [address] | [place], [place] | | | [facility] | [address] | [address] | | | TESTS | | | [...] | [facility] | [address] | [place], [place] | | | [facility] | [address] | [address] | | | TESTS | | | [...] [facility] | [address] | [place], [place] | | | [facility] | [address] | [address] | | | TESTS | | | [...] [facility] | [address] | [place], [place] | | | [facility] | [address] | [address] | | | TESTS | | | [...] (H) | 70 - 99 mg/dL | [facility] - | | | GLUCOSE, | | [...] | [facility] | [address] | [place], [place] | | | [facility] | [address] | [address] | | | TESTS | | | [...] [facility] | [address] | [place], [place] | | | [facility] | [address] | [address] | | | TESTS | | | [...] + | [facility] | [address] | [place], [place] | | | [facility] | [facility] | [address] | | | TESTS | | | [...] | [facility] | [address] | [place], [place] | | | [facility] | [address] | [phone] | | | TESTS | | | [...] [facility] | [address] | [place], [place] | | | [facility] | [address] | [address] | | | TESTS | | | [...] + | [facility] | [address] | [place], [place] | | | [facility] | [facility] | [address] | | | TESTS | | | [...] | [facility] | [address] | [place], [place] | | | [facility] | [address] | [address] | | | TESTS | | | [...] [facility] | [address] | [place], [place] | | | [facility] | [address] | [address] | | | TESTS | | | [...] [facility] | [address] | [place], [place] | | | [facility] | [address] | [address] | | | TESTS | | | [...] (H) | 70 - 99 mg/dL | [facility] - | | | GLUCOSE, | | [...] | [facility] | [address] | [place], [place] | | | [facility] | [address] | [address] | | | TESTS | | | [...] [facility] | [address] | [place], [place] | | | [facility] | [address] | [address] | | | TESTS | | | [...] + + | [facility] | [address] [facility] | [place], [place] | | | [facility] | [address] | [address] | | | TESTS | | | | + + + + + EGD (ESOPHAGOGASTRODUODENOSCOPY) (03/01/2018 11:21 AM PDT) + + + | Narrative | Performed At | + + + | Bertha Castanon MD 03/01/2018 12:25 PM Date of Procedure: | | | 03/01/18 Primary Surgeon: Bertha Castanon MD Co Surgeon or | | | assistant store manager operations: Eldon Gonzalez MD, Chief Resident Alexx | [...] The jejunum was divided with 60 mm Diehlstadt stapler with white | | | load [...] created in each limb and a 60mm Diehlstadt stapler | | | with white load was fired to create a [id number] | | | jejunojejunostomy. The anastamosis was confirmed to be widely | | | patent and hemostatic. The common enterotomy was closed by placing | | | 2 stay sutures along the enterotomy for retraction and firing an | | | Diehlstadt 60mm stapler with white load across the [...] | | | was entered. The 60mm Diehlstadt stapler with blue load was placed | [...] blue load of the 60mm stapler. The Diehlstadt was then fired | | | longitudinally towards the angle of His to create the gastric pouch, | | | leaving the gastrotomy from foreign body removal, on the pouch. | | | Dissection was performed retrogastric to connect posterior and | | | anterior dissection planes and ensure adequate fundus exclusion. | | | Additional fires of the Diehlstadt stapler were performed with blue | | [...] with | | | 5 mm clip lead security officer. A 25mm Orvil was passed transorally by [...] was closed with 60mm | | | Diehlstadt stapler with a white load. Medially and [...] was present | | | as my assistant store manager operations for the entire procedure, given the technically | | | challenging nature of this procedure. She assisted in all critical | | | steps of the procedure. Dr. Gonzalez was present for endoscopy at the | | | end of the procedure. Bertha Castanon MD, FACS, [facility] | | | Bariatric Surgery | | + + + LAPAROSCOPIC GASTRIC BYPASS AND NISH-EN-Y GASTROENTEROSTOMY WITH NISH LIMB 150 CM OR LESS ( 03/01/2018 11:21 AM PDT) + + + | Narrative | Performed At | + + + | Bertha Castanon MD 03/01/2018 12:25 PM Date of Procedure: | | | 03/01/18 Primary Surgeon: Bertha Castanon MD Co Surgeon or | | | assistant store manager operations: Eldon Gonzalez MD, Chief Resident Alexx | [...] The jejunum was divided with 60 mm Diehlstadt stapler with white | | | load [...] created in each limb and a 60mm Diehlstadt stapler | | | with white load was fired to create a [id number] | | | jejunojejunostomy. The anastamosis was confirmed to be widely | | | patent and hemostatic. The common enterotomy was closed by placing | | | 2 stay sutures along the enterotomy for retraction and firing an | | | Diehlstadt 60mm stapler with white load across the [...] | | | was entered. The 60mm Diehlstadt stapler with blue load was placed | [...] blue load of the 60mm stapler. The Diehlstadt was then fired | | | longitudinally towards the angle of His to create the gastric pouch, | | | leaving the gastrotomy from foreign body removal, on the pouch. | | | Dissection was performed retrogastric to connect posterior and | | | anterior dissection planes and ensure adequate fundus exclusion. | | | Additional fires of the Diehlstadt stapler were performed with blue | | [...] with | | | 5 mm clip lead security officer. A 25mm Orvil was passed transorally by [...] was closed with 60mm | | | Diehlstadt stapler with a white load. Medially and [...] was present | | | as my assistant store manager operations for the entire procedure, given the technically | | | challenging nature of this procedure. She assisted in all critical | | | steps of the procedure. Dr. Gonzalez was present for endoscopy at the | | | end of the procedure. Bertha Castanon MD, FACS, [facility] | | | Bariatric Surgery | | [...] | | | POC | | | [place] | | | | | | OF [...] + + | [facility] | [address] | [place], [place] | | | [facility] | [address] | [address] | | | TESTS | | | [...] 03/02/18 at 1556, | | | Until Thu03/03/18 [...] | | | | | dose on 03/01/18 at 1415, Until | | AM PDT [...] + + + +---+---+---+ | probiotic yogurt (NIKKO'S | Given - | 03/03/20 | | [...] | | | | First dose on 03/01/18 at 2200, | | PM PDT | [...]
--- OUTSIDE RECORDS SUMMARY | ~2020-04-17 | XMS | Encounter Summary ---
Demographics + + + | Address | [address] | | | [place] [address] | + + + | Home Phone [...] + | Katalina Padilla | ECON | [address] | | | | | [place], [place] | | | | | [address] | | + + + + + | Ellie Vang | ECON | Unknown | | + + + + + Care Team Providers + +------+ + | Care Sourcing Manager Name | Role | Phone | + +------+ + | Fadi Goodrich DO | PCP | | + +------+ + Encounter Details +--------+------+ + + + | Date | Type | Department | Care Team | Description | +--------+------+ + + + | 10/12/ | Lab | Laboratory at [facility] | | | | 2019 | | [address] | | | | | | [place] [facility] | | | | | | and Healing, | | | | | | [address] | | | | | | [place], [place] | | | | | | [address] | | | | | | [phone] | | | +--------+------+ + + + [...] | | 2019 | Visit | | [address] | | | | | | [address] | | | | | | [place], [place] | | | | | | [address] | | | | | | [phone] | | | | | | | [...] | | e | 3:29 PM | Frandy-en-Y gastric | procedure are in the | | | | PDT | bypass | results section. | + +--------+ + + + | VITAMIN A, SERUM | Routin | 10/12/2018 | History of | Results for this | | | e | 3:29 PM | Frandy-en-Y gastric | procedure are in the | | | | PDT | bypass | results section. | + +--------+ + + + | ZINC, SERUM | Routin | 10/12/2018 | History of | Results for this | | | e | 3:29 PM | Frandy-en-Y gastric | procedure are in the | | | | PDT | bypass | results section. | + +--------+ + + + | VITAMIN E, SERUM | Routin | 10/12/2018 | History of | Results for this | | | e | 3:29 PM | Frandy-en-Y gastric | procedure are in the | | | | PDT | bypass | results section. | + +--------+ + + + | VITAMIN D, | Routin | 10/12/2018 | History of | Results for this | | 25-HYDROXY, SERUM | e | 3:29 PM | Frandy-en-Y gastric | procedure are in the | | | | PDT | bypass | results section. | + +--------+ + + + | VITAMIN B-12 | Routin | 10/12/2018 | History of | Results for this | | | e | 3:29 PM | Frandy-en-Y gastric | procedure are in the | | | | PDT | bypass | results section. | + +--------+ + + + | VITAMIN B1, WHOLE | Routin | 10/12/2018 | History of | Results for this | | BLOOD | e | 3:29 PM | Frandy-en-Y gastric | procedure are in the | | | | PDT | bypass | results section. | + +--------+ + + + | PTH, SERUM | Routin | 10/12/2018 | History of | Results for this | | | e | 3:29 PM | Frandy-en-Y gastric | procedure are in the | | | | PDT | bypass | results section. | + +--------+ + + + | METHYLMALONIC ACID, | Routin | 10/12/2018 | History of | Results for this | | SERUM | e | 3:29 PM | Frandy-en-Y gastric | procedure are in the | | | | PDT | bypass | results section. | + +--------+ + + + | IRON AND TIBC, SERUM | Routin | 10/12/2018 | History of | Results for this | | | e | 3:29 PM | Frandy-en-Y gastric | procedure are in the | | | | PDT | bypass | results section. | + +--------+ + + + | HOMOCYSTEINE TOTAL, | Routin | 10/12/2018 | History of | Results for this | | PLASMA | e | 3:29 PM | Frandy-en-Y gastric | procedure are in the | | | | PDT | bypass | results section. | + +--------+ + + + | FERRITIN | Routin | 10/12/2018 | History of | Results for this | | | e | 3:29 PM | Frandy-en-Y gastric | procedure are in the | | | | PDT | bypass | results section. | + +--------+ + + + | COPPER, SERUM | Routin | 10/12/2018 | History of | Results for this | | | e | 3:29 PM | Frandy-en-Y gastric | procedure are in the | | | | PDT | bypass | results section. | + +--------+ + + + | COMPLETE METABOLIC | Routin | 10/12/2018 | History of | Results for this | | SET | e | 3:29 PM | Frandy-en-Y gastric | procedure are [...] | | e | 3:29 PM | Frandy-en-Y gastric | procedure are in the | | | | PDT | bypass | results section. | + +--------+ + + + documented in this encounter Results INR (10/12/2018 3:29 PM PDT) + +-------+ [...] | + + + + + | [facility] | [address] | [place] [address] | | | CLAIRE, LYDIA | CLARENCE [...] INTFC | | | | determined by [facility] | | | | | | Laboratories. See | | | | | | Compliance Statement B: | | | | | | iAmplify/CSPerformed | | | | | | by eventblimp,500 | | | | | | Liliana Martinez, [facility] [place] | | | | | | [address] | | | | | | [phone].CellCentric. | | | | | | Ismael [...] [facility] | [address] | [place], [place] | | | UNIV PTH - INTFC | | [address] | | + + + + + [...] | | | | | determined by [facility] | | | | | | Laboratories. See | | | | | | Compliance Statement B: | | | | | | CellCentric.SocialBuy/CSPerformed | | | | | | by eventblimp,500 | | | | | | [facility],[place] | | | | | | [address] | | | | | | [phone].CellCentric. | | | | | | com, [...] + + | [facility] | [address] | [place], [place] | | | UNIV PTH - INTFC | | [address] | | + + + + + [...] [facility] | | | (YEN NOAH) | [facility],[address] | | REG UNIV | | | SERUM | [place], [place] | | PTH - INTFC | | | | [address] | | | | | | [phone].CellCent[employer]. | | | | | | Ismael [...] B: | | | | | | CellCentric.SocialBuy/CS | | | | + + + + + + + + | Specimen | + + | Blood - Blood | | (substance) | + + + + + + + | Performing | Address | City/State/Zipcode | Phone Number | | Organization | | | | + + + + + | [facility] | [address] | [place], [place] | | | UNIV PTH - INTFC | | [address] | | + + + + + [...] [facility] | [address] | [place] [address] | | | SERVICES, CORE | PARK [...] | + + + + + | [facility] | [address] | [place] [address] | | | CLAIRE, LYDIA | CLARENCE [...] | | | | | determined by [facility] [[email or web address]] | | | | | | Laboratories. See | | | | | | Compliance Statement B: | | | | | | CellCentric.SocialBuy/CSPerformed | | | | | | by eventblimp,500 | | | | | | Liliana Martinez [facility] [place] | | | | | | [address] | | | | | | [phone].CellCentric. | | | | | | com, [...] [facility] | [address] | [place], [place] | | | UNIV PTH - INTFC | | [address] | | + + + + + [...] [facility] | [address] | [place] [address] | | | SERVICES, CORE | PARK [...] | | | | | determined by [facility] | | | | | | Laboratories. See | | | | | | Compliance Statement B: | | | | | | CellCentric.SocialBuy/CSPerformed | | | | | | by eventblimp,500 | | | | | | [facility]iana [facility],[place] | | | | | | [address] | | | | | | [phone].CellCentric. | | | | | | Ismael [...] [facility] | [address] | [place], [place] | | | UNIV PTH - INTFC | | [address] | | + + + + + [...] + | [facility] | [address] | [place] [address] | | | SERVICES, CORE | PARK [...] | + + + + + | [facility] | [address] | [place] [address] | | | SERVICES, SPECIAL | PARK [...] | + + + + + | [email or web address] | [address] | [place] [address] | | | SERVICES, CORE | CLARENCE [...] at | | | | | | [email or web address] | | | | | | med by [facility] | | | | | | Laboratories,[address] [facility] | | | | | | [place] [address] | | | | | | [phone].CellCentric. | | | | | | lifepoint hospitalsIsmael MD, | | | | | | [...] [facility] | [address] | [place], [place] | | | UNIV PTH - INTFC | | [address] | | + + + + + [...] | | | LABORATORY | | | MACANESE | | | SERVICES, | | | [...] + + + | [facility] | [address] | [place] [address] | | | SERVICES, CORE | [address] | | | + + + + + documented in this encounter Visit Diagnoses Not on filedocumented in this encounter"
--- OUTSIDE RECORDS SUMMARY | ~2020-04-17 | XMS | Encounter Summary ---
Demographics + + + | Address | [address] | | | [place] [address] | + + + | Home Phone [...] + | Katalina Padilla | ECON | [address] | | | | | [place], [place] | | | | | [address] | | + + + + + | Ellie Vang | ECON | Unknown | | + + + + + Care Team Providers + +------+ + | Care Speech And Hearing Clinic Director Name | Role | Phone | + +------+ + PCP | Unavailable | + +------+ + Encounter Details +--------+ + + + + | Date | Type | Department | Care Team | Description | +--------+ + + + + | 05/13/ | Results | Neurosurgery [address] | [address], | | | 1990 | Only | [address] | ,PhD | | | | | Rd Mailcode:OP14B | | | | | | [facility] | | | | | | [place], [place] | | | | | | [address] | | | | | | [phone] | | | +--------+ + + + [...] 06/08/ | Office | Plastic Surgery | Geoffrey Antoinette, | | | 2019 | Visit | | [address] | | | | | | [address] | | | | | | [place], [place] | | | | | | [address] | | | | | | [phone] | | | | | | | [...] | | | | CONTRAST | SUSHILA OTOOLE | | | | | | Abilio-Radiologist 2: | | | | | | SUSHILA OTOOLE | | | | | | DYLAN [...] | | + +---------+ + + ANG/EXIST CATH/ALEENA/TATO/INFU (05/15/1993 9:30 AM PDT) + + + [...] | | | | navigated a #5.5 Tongan | | | | | | Ozzy [...] | | + +---------+ + + | [facility] DEPARTMENT OF | | | | | RADIOLOGY | | | | + +---------+ + + ANG/EXIST CHICHI/ALEENA/TATO/INFU (05/14/1993 7:31 PM PDT) + + + [...] | | | | | | | CATHETER [...] + +---------+ + + ANA/JAMEY CADET/ALEENA/TATO/USHA (05/14/1993 2:20 PM PDT) + + + [...] | | + +---------+ + + | [facility] DEPARTMENT OF | | | | [...] | | + +---------+ + + | [facility] DEPARTMENT OF | | | | [...] | | | | | [phone] | | | | | [...] | | | | | | a#5.5 Tongan sheath was | | | | | | secured into place. In | | | | | | a similar fashion, | | | | | | a#7.0 Tongan sheath was | | | | | [...] | | | | | The #7 Tongan Brite | | | | | | [...] | | + +---------+ + + | [facility] DEPARTMENT OF | | | | | RADIOLOGY | | | | + +---------+ + + documented in this encounter Visit Diagnoses Not on filedocumented in this encounter
--- OUTSIDE RECORDS SUMMARY | ~2020-04-17 | XMS | Encounter Summary ---
Demographics + + + | Address | [address] | | | [place] [address] | + + + | Home Phone [...] + | Katalina Padilla | ECON | [address] | | | | | [place], [place] | | | | | [address] | | + + + + + | Ellie Vang | ECON | Unknown | | + + + + + Care Team Providers + +------+ + | Care Customs Compliance Director Name | Role | Phone | [...] | | | | | | | [address] | | | | | | [address] | | | | | | | Physicians | | | | | | | Pavilion, 2nd | | | | | | | Floor | | | | | | | [place], [place] | | | | | | | [address] | | | | | | | Phone: | | | | | | | [phone] | | | | | | | Fax: | | | | | | | [phone] | +--------+--------+ + + + + Encounter Details +--------+---------+ + + + | Date | Type | Department | Care Team | Description | +--------+---------+ + + + | 11/04/ | Office | Trauma Emergency | Christian Rocha, | Ventral hernia | | 2016 | Visit | General Surgery at | ,[facility] [address] | without obstruction | | | | [facility] [address] | or gangrene (Primary | | | | [address] | [place], [place] | Dx) | | | | Physicians [place], | [address] | | | | | 2nd Floor | [phone] | | | | | [facility] [place] | | | | | | [address] | | | | | | [phone] | | | +--------+---------+ + + + [...] Rocha MD,[facility] - 11/05/2015 2:09 PM PDT [facility] Department of Surgery EGS/TRAUMA Surgery Clinic Note [...] 500 mg by mouth once daily. CALCIUM CRB&GEQ-X6-FBW99-GENIS ORAL Take 1 tablet by mouth two [...] were answered. Christian Rocha MD MPH FACS [facility] dietary supervisor Trauma, Critical Care & Acute Care Surgery [facility] [employer] [phone] documented in thi s encounter Plan of Treatment +--------+---------+ + + + | Date | Type | Specialty | Care Team | Description | +--------+---------+ + + + | 06/08/ | Office | Plastic Surgery | Antoinette Hale, | | | 2019 | Visit | | [address] | | | | | [address] | | | | | | [place], [place] | | | | | | [address] | | | | | | [phone] | | | | | | | | +--------+---------+ + + + documented as of this encounter Visit Diagnoses + + | Diagnosis | + + | Ventral hernia without obstruction or gangrene - Primary Ventral hernia, unspecified, | | without mention of obstruction or gangrene | + + documented in this encounter"
--- OUTSIDE RECORDS SUMMARY | ~2020-04-17 | XMS | Encounter Summary ---
Demographics + + + | Address | [address] | | | [place] [address] | + + + | Home Phone [...] + | Katalina Padilla | ECON | [address] | | | | | [place], [place] | | | | | [address] | | + + + + + | Ellie Vang | ECON | Unknown | | + + + + + Care Team Providers + +------+ + | Care Pilot Instructor Name | Role | Phone [...] Mailcode:OP14B | | | | | | [facility] | | | | | | [place], [place] | | | | | | [address] | | | | | | [phone] | | | +--------+ + + + [...] | | 2019 | Visit | | [address] | | | | | | [address] | | | | | | [place], [place] | | | | | | [address] | | | | | | [phone] | | | | | | | [...] in | | | | | | [place]. | | | | | | | | | | | | Julia Blackman at [facility]. | | | | | | | [...] | | | | artery. A 4.1 Albanian | | | | | | catheter was navigated | | | | | | over0.035" Donal coated | | | | | | [employer] (formerly [employer])son guide wire into | | | | [...] | | + +---------+ + + | [facility] DEPARTMENT | | | | | RADIOLOGY | | | | + +---------+ + + documented in this encounter Visit Diagnoses Not on filedocumented in this encounter
--- OUTSIDE RECORDS SUMMARY | ~2020-04-17 | XMS | Encounter Summary ---
[...] + | Katalina Padilla | ECON | [address] | | | | | [place], [place] | | | | | [address] | | + + + + + | Ellie Vang | ECON | Unknown | | + + + + + Care Team Providers + +------+ + | Care Chest Painting And Sealing Supervisor Name | Role | Phone | + +------+ + | Fadi Goodrich DO | PCP | | + +------+ + Encounter Details +--------+---------+ + + + | Date | Type | Department | Care Team | Description | +--------+---------+ + + + | 01/11/ | Office | Digestive Health | | Morbid obesity (HCC) | | 2018 | Visit | Center at [facility] [address] | | (Primary Dx) | | | | [facility] | | | | | | for Health and | | | | | | Healing, [address] | | | | | | [place], [place] | | | | | | [address] | | | | | | [phone] | | | +--------+---------+ + + + [...] of Class: 1055 until 1155 (60 minutes [id number]-jesv with patient) Teaching Methods: PowerPoint and verbal [...] a journal with fluid/protein d. Transportation 7. [facility] 8. Surgical [...] | Office | Plastic Surgery | Antoinette Hlae, | | | 2019 | Visit | | [address] | | | | | | [address] | | | | | | [place], [place] | | | | | | [address] | | | | | | [phone] | | | | | | | | +--------+---------+ + + + documented as of this encounter Visit Diagnoses + + | Diagnosis | + + | Morbid obesity (HCC) - Primary Morbid obesity | + + documented in this encounter"
--- OUTSIDE RECORDS SUMMARY | ~2020-04-17 | XMS | Encounter Summary ---
Demographics + + + | Address | [address] | | | [place] [address] | + + + | Home Phone [...] + | Katalina Padilla | ECON | [address] | | | | | [place], [place] | | | | | [address] | | + + + + + | Ellie Vang | ECON | Unknown | | + + + + + Care Team Providers + +------+ + | Care Strip Roller Name | Role | Phone | [...] Closed | | Cardiology | Diagnoses | Edmundoer, | Tiny, | | | | | Unspecified | Kathy Feliciano NP | MD Randell | | | | | essential | [address] | [address] | | | | | hypertension | [address], | Ave | | | | | Type II or | [address] | [place], [place] | | | | | unspecified | [place], [place] | [address] | | | | | type | [address] | Phone: | | | | | diabetes | Phone: | [phone] | | | | | mellitus | [phone] | Fax: | | | | | without | Fax: | [phone] | | | | | mention of | [phone] | | | | | | complication | | | | | | | , not stated | | | | | | | as | | | | | | | uncontrolled | | | | | | | Morbid | | | | | | | obesity | | | | | | | (HCC) | | | +--------+--------+ + + + + Encounter Details +--------+---------+ + + + | Date | Type | Department | Care Team | Description | +--------+---------+ + + + | 12/05/ | Office | Cardiology | Randell Franks, | Type 2 diabetes | | 2013 | Visit | Preventive at [facility] | MD [address] | mellitus (HCC) | | | | [address] | [place], [place] | (Primary Dx); | | | | [facility] | [address] | Migraine headache | | | | and Healing, | [phone] | | | | | [address] | | | | | | [place], [place] | | | | | | [address] | | | | | | [phone] | | | +--------+---------+ + + + [...] + + + | Blood Pressure | 142/83 | 12/05/2013 11:21 AM | | | | | PDT | | + + + + + | Pulse | 126 | 12/05/2013 11:21 AM | | | | | PDT | | + + + + + | Temperature | 36.7 C (98.1 F) | 12/05/2013 11:21 AM | | | | | PDT | | + + + + + | Respiratory Rate | - | - | | + + + + + | Oxygen Saturation | 98% | 12/05/2013 11:21 AM | | | | | PDT | | + + + + + | Inhaled Oxygen | - | - | | | Concentration | | | | + + + + + | Weight | 175.2 kg (386 lb 3.2 | 12/05/2013 11:21 AM | | | | oz) | PDT | | + + + + + | Height | 154.9 cm (5' 1") | 12/05/2013 11:21 AM | | | | | PDT | | + + + + + | Body Mass Index | 72.97 | 12/05/2013 11:21 AM | | | | | PDT | | + + + + + documented in this encounter Patient Instructions Patient Instructions Randell Franks MD - 12/05/2013 11:39 AM PDTTake your pulse rate at home 3 to 4 times a week and call Dr. Franks if > 100 beats per minute.Electronically sign ed by Randell Franks MD at 12/05/2013 11:40 AM PDT documented in this encounter Progress Notes Randell Franks MD - 12/05/2013 11:47 AM PDTFormatting of this note might be [...] (polycystic ovarian syndrome) Ventral hernia Migraine headache Medications: Current Outpatient Prescriptions Medication Sig ALPRAZolam XR 3 mg Oral tablet extended release 24 hr Take 3 mg by mouth once daily in the morning. ascorbic acid (VITAMIN C) 500 mg Oral tablet Take 500 mg by mouth once daily. ASPIRIN/ACETAMINOPHEN/JARON CARB (EXCEDRIN BACK & BODY ORAL) Take 325 mg by mouth four ti mes daily as needed. ergocalciferol (VITAMIN D2) 50,000 unit oral capsule Take 50,000 Units by mouth twice w kl (on Thursday and ). ferrous sulfate 325 mg (65 mg iron) Oral tablet Take 325 mg by mouth two times daily. FLUoxetine 40 mg Oral capsule Take 40 mg by mouth once daily. HUM INSULIN NPH/REG INSULIN HM (HUMULIN 70/30 SUBQ) Inject 50 cc under the skin (SUBC) once daily. metFORMIN 1,000 mg Oral tablet [...] mg by mouth once daily. topiramate (TOPAMAX) 25 mg oral tablet Take 100 mg by mouth. Take 1 tab twice daily TORSEMIDE ORAL Take 40 mg by mouth two times daily. traZODone 150 mg Oral tablet Take 150 mg by mouth once daily at bedtime. No current facility-administered medications for this visit. S: Elzbieta is a 38 y.o. female here for follow-up of obesity and T2DM. Since I saw Ms. Livia singh last, continues on phentermine and is now taking 100 mg topiramate BID with good appetite suppression and no side effects. She has continued on her diuretic and noticed reduction in her edema of her legs and abdomen. CBG's at home are in the 100 to 120 mg/dL range. She has been evaluated for RYGBP and is awaiting a sleep disorders consult to complete her initial evaluation. She reports that her PCP has documented that she is hypothyroid and put her on [place] Thyroid hormone replacement therapy. Her heart rate is high today, but she st ates this is due to anxiety and a migraine, and that her heart rate at home is between 85 an d 100 bpm. She is also concerned about recurrent, worsening abdominal pain at the site of her ventral hernia, as well as skin breakdown under her panniculus. Weight: down from last visit Diet: healthy Exercise: "I walk everywhere." ROS: No CP, SOB. O: vitals BP 142/83 | Pulse 126 | Temp (Src) 36.7 C (98.1 F) (Oral) | Ht 1.549 m (5' 1" ) | Wt 175.179 kg (386 lb 3.2 oz) | SpO2 98% | BMI 73.01 kg/(m^2) Gen: pleasant, NAD Lungs: Clear to auscultation, no crackles Heart: Reg, no MRG Labs: None new to review. Assessment: 1) T2 Diabetes: Under good control by report. Will continue present management, monitor glu cose control. 2) Morbid obesity: Weight stable to slightly lower with addition of topiramate. Await RYGB P. 3) Abdominal pain: Suggested that she discussed this with her surgeon to evaluate role of surgical management at this time or with pending RYGBP. Plan: 1) Continue healthy eating, be as active as she can be, phentermine and topiramate 2) Check A1c 3) Discuss abdominal pain, ventral hernia management with Dr. Brian. 4) F/U 3-4 month, check A1c at that time. nalisa Barrios MA - 12/05/2013 11:21 AM PDT documented in this encoun ter Plan of Treatment +--------+---------+ + + + | Date | Type | Specialty | Care Team | Description | +--------+---------+ + + + | 06/08/ | Office | Plastic Surgery | Antoinette Hale, | | | 2019 | Visit | | [address] | | | | | | [address] | | | | | | [place], [place] | | | | | | [address] | | | | | | [phone] | | | | | | | | +--------+---------+ + + + documented as of this encounter Results HEMOGLOBIN A1C, BLOOD (12/05/2013 [...] + + + + + | [facility] | [address] | [place] [address] | | | SERVICES, SPECIAL | PARK [...] stated as uncontrolled | + + | Migraine headache Migraine, unspecified, without mention of intractable migraine | | without mention of status migrainosus | + + documented in this encounter
--- OUTSIDE RECORDS SUMMARY | ~2020-04-17 | XMS | Encounter Summary ---
Demographics + + + | Address | [address] | | | [place] [address] | + + + | Home Phone [...] + | Katalina Padilla | ECON | [address] | | | | | [place], [place] | | | | | [address] | | + + + + + | Ellie Vang | ECON | Unknown | | + + + + + Care Team Providers + +------+ + | Care Sports Psychologist Name | Role | Phone | + [...] | | | | | gastric | [address] | [address] [facility] | | | | | bypass | [place], | [facility], | | | | | Nausea and | [place] | [address]th Floor | | | | | vomiting, | [address] | [place], [place] | | | | | intractabili | Phone: | [phone] | | | | | ty of | | Phone: | | | | | vomiting not | Fax: | [phone] | | | | | specified, | [phone] | Fax: | | | | | unspecified | | [phone] | | | | | vomiting | | | | | | | [...] | | | | | | CONTRAST ID | | | | | | | CT SCAN OF | | | | | | | ABDOMEN | | | | | | | CONTRAST ID | | | | | | | [...] Closed | | Radiology | Diagnoses | [place], | Rad Ct Scan | | | | | History of | Keren W, | [facility] [address] | | | | | Frandy-en-Y | AGACNP [address] | | | | | gastric | [address] | [address] [facility] | | | | | bypass | [place], | [facility], | | | | | Nausea and | [place] | 10th Floor | | | | | vomiting, | [address] | [place], [place] | | | | | intractabili | Phone: | [phone] | | | | | ty of | | Phone: | | | | | vomiting not | Fax: | [phone] | | | | | specified, | [phone] | Fax: | | | | | unspecified | | [phone] | | | | | vomiting | | | | | | | [...] | | | | | | CONTRAST ID | | | | | | | CT SCAN OF | | | | | | | ABDOMEN | | | | | | | CONTRAST ID | | | | | | | [...] | 2019 | Encounter | Services at [facility] [[email or web address]] | AGACNP [address] | | | | | [address] | [place], [place] | | | | | Lesly Gutiérrez [facility] | [address] | | | | | [address] | [phone] | | | | | [place], [place] | | | | | | [address] | | | | | | [phone] | | | +--------+ + + + [...] | | 0 | | | | CRB&ZGQ-[id number]-GEN | mouth two times | | | [...] Rd | | | | | | [place], [place] | | | | | | [address] | | | | | | [phone] | | | | | | | [...]
--- OUTSIDE RECORDS SUMMARY | ~2020-04-17 | XMS | Encounter Summary ---
Demographics + + + | Address | [address] | | | [place] [address] | + + + | Home Phone [...] + | Katalina Padilla | ECON | [address] | | | | | [place], [place] | | | | | [address] | | + + + + + | Ellie Vang | ECON | Unknown | | + + + + + Care Team Providers + +------+ + | Care Hogshead Dumper Name | Role | Phone | + [...] | 12/02/ | Refill | Cardiology | Radnell Franks, | Refill Request | | 2019 | | Preventive at [facility] | MD [address] | (PHENTERMINE 37.5 mg | | | | [address] | [place], [place] | ) | | | | [facility] | [address] | | | | | and [place], | [phone] | | | | | [place] [address] | | | | | | [place], [place] | | | | | | [address] | | | | | | [phone] | | | +--------+--------+ + + + [...] encounter Miscellaneous Notes Telephone Encounter - Leslie Persaud RN - 12/03/2018 11:47 AM PDTPrescription called int o the patient's pharmacy. elephone Encounter - Rhona Mccullough MA - 12/02/2018 3:05 PM PDT Refill Request For: Requested Prescriptions Pending Prescriptions Disp Refills PHENTERMINE 37.5 mg oral tablet [Pharmacy Med Name: PHENTERMINE 37.5MG TAB] 90 tablet 1 Sig: TAKE 1 TABLET BY MOUTH ONCE DAILY IN THE MORNING Patient Last Seen By Ordering Provider: Last Appointment in [facility] was on 04/13 at 3:39 pm with Randell Franks MD. Follow Up Plan: Next Appointment in [facility] is on 01/07/19 at 9:15 am with Jessica Franks MD. Please review and sign if appropriate documented in this encou nter Plan of [...] Rd | | | | | | [place], [place] | | | | | | [address] | | | | | | [phone] | | | | | | | | +--------+---------+ + + + documented as of this encounter Visit Diagnoses Not on filedocumented in this encounter"
--- OUTSIDE RECORDS SUMMARY | ~2020-04-17 | XMS | Encounter Summary ---
Demographics + + + | Address | [address] | | | [place] [address] | + + + | Home Phone [...] + | Katalina Padilla | ECON | [address] | | | | | [place], [place] | | | | | [address] | | + + + + + | Ellie Vang | ECON | Unknown | | + + + + + Care Team Providers + +------+ + | Care Travel Nurse Name | Role | Phone | + +------+ + | Fadi Goodrich DO | PCP | | + +------+ + Encounter Details +--------+ + + + + | Date | Type | Department | Care Team | Description | +--------+ + + + + | 02/09/ | Abstract | Digestive Health | Clinic, Surgery | | | 2016 | | [place] [address] [address] | | | | | | [facility] | | | | | | for Health and | | | | | | [facility] 2 | | | | | | [place], [place] | | | | | | [address] | | | | | | [phone] | | | +--------+ + + + [...] 2019 | Visit | | [address] | | | | | | [address] | | | | | | [place], [place] | | | | | | [address] | | | | | | [phone] | | | | | | | | +--------+---------+ + + + documented as of this encounter Visit Diagnoses Not on filedocumented in this encounter"
--- OUTSIDE RECORDS SUMMARY | ~2020-04-17 | XMS | Encounter Summary ---
Demographics + + + | Address | [address] | | | [place] [address] | + + + | Home Phone [...] [place], [place] | | | | | [address] | | + + + + + | Ellie Vang | ECON | Unknown | | + + + + + Care Team Providers + +------+ + | Care Table Inspector Name | Role | Phone | [...] | obstruction | [address] | [address] [place], | | | | | or gangrene | Rd | [place] | | | | | | [place], [place] | [address] | | | | | Incarcerated | [address] | Phone: | | | | | ventral | Phone: | [phone] | | | | | hernia | [phone] | Fax: | | | | | Procedures | Fax: | [phone] | | | | | REQUEST TO | [phone] | | | | | | SURGERY | | | | | | | PIPE COVERER HELPER | | | | | | | NM REPAIR | | | | | | | INCISIONAL | | | | | | | HERNIA,STRAN | | | | | | | G NM REPAIR | | | | | | | INCIS | | | | | | | HERNIA W | | | | | | | MESH NM | | | | | | | MUSCLE-SKIN | | | | | | | FLAP,TRUNK | | | | | | | NM | | | | | | | MUSCLE-SKIN | | | | | | | FLAP,TRUNK | | | | | | | NM REPAIR | | | | | | | INCISIONAL | | | | | | | HERNIA,REDUC | | | | | | | IBLE NM | | | | | | | REPAIR INCIS | | | | | | | HERNIA W | | | | | | | MESH NM | | | | | | | REPAIR | | | | | | | RECURR INCIS | | | | | | | | | | | | | | HERNIA,STRAN | | | | | | | G NM REPAIR | | | | | | | INCIS | | | | | | | HERNIA W | | | | | | | MESH NM | | | | | | | REPAIR | | | | | | | RECURR INCIS | | | | | | | | | | | | | | HERNIA,REDUC | | | | | | | NM REPAIR | | | | | | [...] without | [address] | Ave Center | | | | | obstruction | [place], | for Health | | | | | or gangrene | [place] | and Healing, | | | | | Abdominal | [address] | Building [address] | | | | | pain, | Phone: | [place], [place] | | | | | unspecified | [phone] | [address] | | | | | abdominal | Fax: | Phone: | | | | | location | [phone] | [phone] | | | | | Procedures | | Fax: | | | | | CONSULT TO | | [phone] | | | | | SURGERY - | | | | | | | GENERAL | | | +--------+--------+ + + + + Encounter Details +--------+---------+ + + + | Date | Type | Department | Care Team | Description | +--------+---------+ + + + | 05/05/ | Office | Digestive Health | Chilo, | Ventral hernia | | 2019 | Visit | Center at [facility] [address] | MD Jones [address] | without obstruction | | | | [address] [facility] | [address] | or gangrene (Primary | | | | for Health and | [place], [place] | Dx) | | | | Healing, Building [address] | [address] | | | | | [place], [place] | [phone] | | | | | [address] | | | | | | [phone] | | | +--------+---------+ + + + [...] (1?2 cup) 6.5 Avocado 1?2 fruit 2.1 [place] sprouts, cooked 125 mL (1?2 cup) 2.0 Figs, dried 60 mL (1?4 cup) 1.9 Lyon 1 medium 1.8 Sweet Potato, cooked, without [...] 1.3 Eggplant 125 mL (1?2 cup) 1.3 Alger, with skin 1 medium 1.0-1.3 Peas, green, cooked 125 mL (1?2 cup) 0.8-1.3 Carrot, cooked John 125 mL (1?2 cup) 1?2 fruit 1.1-1.2 0.7-1.1 Grapefruit 1?2 fruit 0.7-1.1 Prunes, dried 3 1.1 Burley, with skin 2 fruits 1.1 Apricots, dried [...] Bread, rye 35 g (1 slice) 0.6-1.0 Power bread crackers 3 crackers 0.9 Raisin bran [...] of Soluble Fiber [email or web address] PATIENT SURGERY INFORMATION [facility] General Surgery Office Toll-free: ext [phone] Surgery Date: Monday, July 08, [address]: Main [facility] Procedure: recurrent ventral hernia repair Surgeon Name: Dr. Jones Tiwari DIRECTIONS FOR SURGERY TO PREPARE FOR SURGERY - If you are able, walk every day for at least 30 minutes. - Follow up: Phone pre-operative medicine clinic call to be completed within 30 days of emerson jerrica. This call appointment will be scheduled with you by a planner scheduler. You will receive a ca ll [...] ease call the General Surgery Office at [phone] for [id number]. Check-in on the day of surgery is at the Admitting Department located on the 9th floor of [facility]. DIET Nothing to eat or drink after [...] the surgery. Please see the list below, [facility] has a list of products that contain [...] contact our office . Products Containing Aspirin Yuki-Granby, Anacin, Anexsia with Codeine, Andynos, Aspirin, Aspirin suppositories, Ascrip tin, Aspergum, Axotal, B-A-C, Baby Aspirin, Ulcila, BC Powder, Bexophene, Buffaprin, Bufferin , Buffinol, Cama-Arthritis Strength, Congespirin, Acton, Coricidin, Damason, Darvon, Dristan, Kalani-Gesic, Digel, Dolprin #3 Tablets, Donatab, Doxaphene, Duragesic, Easprin, Ecotrin, Emag rin Forte, Emiprin, Emprazil, Equagesic, Equazine M, Excedrin, Fiogesic, Fiorgen PH, Fiorice t, Fiorinal, 4-Way Cold Tablet, Gemnisyn, Indocin, Liquprin, Lortab ASA, Magnaprin, Marnal, Meprobamate, Midol, Momentum, Norgesic, Savannah, Orphengesic, Pabalate, P-A-C, Percodan, Pre salin, Robaxasil, Roxiprin, Saleto, Salocol, SK-65 Compound, Sine-Aid, Sine-Off, Bladen, Supac, Talwin Compound, Trigesic, Tolectin, Traiminicin, Vanquish, ZORprin, Zomax Products Containing Ibuprofen Advil, Aleve, Haltran, Medipren, Midol, Motrin, Naproxyn, Nuprin, Rufen Herbal Medications Ephedra: discontinue 24 hours before surgery Garlic: discontinue 7 days prior to surgery Ginkgo: discontinue 36 hours prior to surgery Ginseng: discontinue 7 days prior to surgery Kava: discontinue 24 hours prior to surgery Giuliana s Wort: discontinue 5 days prior to surgery Valerian: discontinue several weeks prior to surgery Other Products Which May Promote Bleeding Vitamin E, Gingko Biloba, Marine Fatty Acids, White Post-3 Fish Oil Supplement PRE-OP BATHING/SHOWER INSTRUCTIONS with HIBICLENS Bathe or shower the evening before and [...] loss of tissue. Check out the free [place] Quit Line - The Quit Line is open 24 hours a day, seven days a we ek. The Quit Line is a telephone and web-based counseling service to help [place]ians quit us ing tobacco and nicotine products. .QUIT.NOW ( ) or www.quitnow.net/[place] PARKING Parking at the [facility] for patients and visitors is available in the [facility] located across from the emergency department. Patient parking is available on level 1 and 3. Metered parking is available on the top level. Parking at [facility] is available in the building's parking structure. For additional parking options visit [email or web address]. TRANSPORTATION You will require transportation home on the day of discharge. Pain medications and physical activity restrictions may limit your ability to drive safely. CANCELLING YOUR PROCEDURE Please notify the general surgery office at [phone] as soon as possible should you nee [...] lost 100+ lbs! She last saw the [facility] team in 02/2019, at which [...] almost every time that she eats. Sh e will usually have to get up in [...] plans to see an ENT and a reinforced concrete inspector for her symptoms in the near future. [...] Dr. Andie Brian Incisional hernia repair 03/01/2015 [facility]/ Dr. Cantu. Primary fascial closure and scar excision Lap gastric byp, and nilesh-en-y gastroenterostomy w/ nilesh limb 150 cm or less 8 [facility] Past Medical History: Diagnosis Date [...] index of 70 and over in adult ([facility]) Myalgia and myositis Nausea Neck pain Numbness Osteoarthritis of knee Palpitations Pneumonia Shortness of breath Staphylococcal infection Stroke ([facility]) TIA (transient ischemic attack) due to [...] file Gets together: Not on file Attends caodaism service: Not on file Active member of club or organization: Not on file Attends meetings of clubs or organizations: Not on file Relationship status: Not on file Other Topics Concern Not on file Social History Narrative Updated 11/09/15 She lives in [place] with her mother and her sister (also her caregiver) lives in an apa rtment/duplex below. She has 2 grandchildren (age 4 and 7) who live with her daughter and son-in-law Her boyfriend lives in [place] HFpEF, DM2, HTN, Sleep Apnea (unable to tolerate CPAP), Hypothyroidism, Severe Obesity ([facility] weight 495 lbs) Last seen by [...] program here and refer her to our realty specialist who also has expertise in physical [...] daily. BELBUCA 600 mcg buccal film CALCIUM [id number]-GENIS ORAL Take 2 tablets by mouth two [...] morbid obesity s/p laparoscopic anteocolic RYGB (03/01/2018); [facility] e this operation, she has lost 100+ [...] down for surgery in 06/2019, we will rordigues ve to move back surgery if she is still ill. SCRIBE ATTESTATION I am Gadiel Yi functioning as a scribe for Jones Tiwari MD at 1:33 PM on 019 I have reviewed and verified the above scribed note of my visit with this patient as record ed by Gadiel Yi . JONES TIWARI MD [facility] AT [address] Mailcode: [place] [address] I spent 31 minutes with the patient. Greater than 50% of the time was spent counseling and educating the patient regarding weight loss, as well as other factors pertinent to ventral hernia repair. ERdoculars entalise in this encounter Plan of Treatment +--------+---------+ + + + | Date | Type | Specialty | Care Team | Description | +--------+---------+ + + + | 06/08/ | Office | Plastic Surgery | Antoinette Hale, | | | 2019 | Visit | | [address] [facility] | | | | | | [address] | | | | | | [place], [place] | | | | | | [address] | | | | | | [phone] | | | | | | | | +--------+---------+ + + + documented as of this encounter Visit Diagnoses + + | Diagnosis | + + | Ventral hernia without obstruction or gangrene - Primary Ventral hernia, unspecified, | | without mention of obstruction or gangrene | + + documented in this encounter
--- OUTSIDE RECORDS SUMMARY | ~2020-04-17 | XMS | Encounter Summary ---
Demographics + + + | Address | [address] | | | [place] [address] | + + + | Home Phone | | + + + | Preferred Language | Unknown | + + + | Marital Status | Single | + + + | Denominational Affiliation | NON | + + + [...] + | Katalina Padilla | ECON | [address] | | | | | [place], [place] | | | | | [address] | | + + + + + | Ellie Vang | ECON | Unknown | | + + + + + Care Team Providers + +------+ + | Care Commuter Pilot Name | Role | Phone | + +------+ + | Kenyatta Cardenas MD | PCP | | + +------+ + Reason for Visit + +--------+ + | Reason | Onset | Comments | | | Date | | + +--------+ + | Care Coordination | 07/04/ | follow up | | | 2019 | | + +--------+ + Encounter Details +--------+ + + + + | Date | Type | Department | Care Team | Description | +--------+ + + + + | 07/04/ | Telephone | [facility] | Chilo | Care Coordination | | 2019 | | Center at [facility] [address] | MD Jorje [address] | (follow up) | | | | [facility] | [facility] | | | | | [facility] and | [place], [place] | | | | | [place] [address] | [address] | | | | | [place], [place] | [phone] | | | | | [address] | | | | | | [phone] | | | +--------+ + + + [...] Telephone Encounter - Paulino Hooker RN - 07/04/2019 10:20 AM PSTI called pt back and spoke to pt about symptoms/concerns. Concern: pt is having pain, having nausea, went to ED last weekend on 06/24, worked up for skin infection, rx'd antibiotics. Saw PCP on 06/28, who gave her phenergan suppository. Onset of symptoms: started worsening over the last couple weeks Fever: temps have been hovering around 99 Abdominal pain: -05/05, talking on phone tearful Description of abdominal pain: chronic, sharp and constant, on the right side to the middle of belly, nothing makes it better, activity makes it worse Medications taken for abdominal pain: fentanyl 12mcg patch, nothing helps, doesn't take ibu profen or NSAIDS, aspirin due to warfarin and gastric patient, doesn't take acetaminophen be cause it doesn't work for her Nausea and/or Vomiting: nauseous, dry heaving since last week, constant Medications taken for N&V: phenergan suppository aren't helping either Last BM: yesterday Description of last BM: normal Abdominal distention: stomach is huge "looks like I'm 6 months " Passing gas: yes Food intake: cream of wheat, PB&J sandwich Fluid intake: drinking water, some days "my own spit makes me sick" Recommendations: Consulted with [facility] team, follow up with PCP and ED for pain and nausea management, otherwise, pt can follow up here at [facility] for evaluation and treatment. Pt informed to go to the ER for urgent symptoms. Pt verbalized understanding and agreement with plan. elephone Encounter - Roxann Bah - 07/04/2019 10:13 AM PSTPerson calling? (Patient, spouse, caregiver, [facility], etc): pt Reason for call: pt called in and she is crying because she went to the ED because she know that there was something going on , but pt said ED keeps sending her home because they told her that there was nothing with pt. Pt doesn't know what to do ED cant help her. Pt reporte d that pain medication is not working to ease the pain and her pain level is beyond 10. Pt s aid her symptom is getting worse Lync'd and transferred to RN Provider / Specialty: Dr. Woo Call back number confirmed?: yes Best call back number / ext: noted under contact or phone tab. Caller would like a call back to discuss. Ok to leave a detailed message?: yes documented in this enc ounter Plan of Treatment +--------+---------+ + + + | Date | Type | Specialty | Care Team | Description | +--------+---------+ + + + | 06/08/ | Office | Plastic Surgery | Antoinette Hale, | | | 2019 | Visit | | [address] | | | | | | [facility] | | | | | | [place], [place] | | | | | | [address] | | | | | | [phone] | | | | | | | | +--------+---------+ + + + documented as of this encounter Visit Diagnoses Not on filedocumented in this encounter
--- OUTSIDE RECORDS SUMMARY | ~2020-04-17 | XMS | Encounter Summary ---
Demographics + + + | Address | [address] | | | [place] [address] | + + + | Home Phone [...] + | Katalina Padilla | ECON | [address] | | | | | [place], [place] | | | | | [address] | | + + + + + | Ellie Vang | ECON | Unknown | | + + + + + Care Team Providers + +------+ + | Care Manager Editorial Name | Role | Phone | + +------+ + | Fadi Goodrich DO | PCP | | + +------+ + Reason for Visit + + + | Reason | Comments | + + + | Medical Records | Letter from community case manager. | | Review | | + + + Encounter Details +--------+ + + + + | Date | Type | Department | Care Team | Description | +--------+ + + + + | 11/08/ | Abstract | Digestive Health | Shereen Georges, | Medical Records | | 2014 | | Center at [facility] [address] | [facility] [address] | Review (Letter from | | | | [address] [facility] | [place], [place] | community case manager. ) | | | | for Health and | [address] | | | | | [facility], [place] [address] | [phone] | | | | | [place], [place] | | | | | | [address] | | | | | | [phone] | | | +--------+ + + + [...] Rd | | | | | | [facility] | | | | | | [address] | | | | | | [phone] | | | | | | | | +--------+---------+ + + + documented as of this encounter Visit Diagnoses Not on filedocumented in this encounter"
--- OUTSIDE RECORDS SUMMARY | ~2020-04-17 | XMS | Encounter Summary ---
Demographics + + + | Address | [address] | | | [place] [address] | + + + | Home Phone | | + + + | Preferred Language | Unknown | + + + | Marital Status | Single | + + + | Baptist Affiliation | NON | + + + [...] + | Katalina Padilla | ECON | [address] | | | | | [place], [place] | | | | | [address] | | + + + + + | Ellie Vang | ECON | Unknown | | + + + + + Care Team Providers + +------+ + | Care Baked And Graphite Inspector Name | Role | Phone | + +------+ + | Fadi Goodrich DO | PCP | | + +------+ + Encounter Details +--------+ + + + + | Date | Type | Department | Care Team | Description | +--------+ + + + + | 07/19/ | Abstract | Digestive Health | Kathy Feldman, | | | 2012 | | [place] [address] [address] | [address] | | | | | [address] [facility] | [facility] [address] | | | | | for Health and | [place], [place] | | | | | [facility] [address] | [address] | | | | | [place], [place] | [phone] | | | | | [address] | | | | | | [phone] | | | +--------+ + + + [...] | | 2019 | Visit | | [address] | | | | | | [address] | | | | | | [place], [place] | | | | | | [address] | | | | | | [phone] | | | | | | | | +--------+---------+ + + + documented as of this encounter Visit Diagnoses Not on filedocumented in this encounter"
--- OUTSIDE RECORDS SUMMARY | ~2020-04-17 | XMS | Encounter Summary ---
Demographics + + + | Address | [address] | | | [place] [address] | + + + | Home Phone [...] + | Katalina Padilla | ECON | [address] | | | | | [place], [place] | | | | | [address] | | + + + + + | Ellie Vang | ECON | Unknown | | + + + + + Care Team Providers + +------+ + | Care Patient Registration Specialist Name | Role | Phone | [...] | | | | | | [address] | | | | | | [address] | | | | | | [facility] | | | | | | Physician's | | | | | | Pavilion [place], | | | | | | [place] [address] | | | | | | [phone] | | | +--------+ + + + [...] Rd | | | | | | [place], [place] | | | | | | [address] | | | | | | [phone] | | | | | | | | +--------+---------+ + + + documented as of this encounter Visit Diagnoses Not on filedocumented in this encounter"
--- OUTSIDE RECORDS SUMMARY | ~2020-04-17 | XMS | Encounter Summary ---
Demographics + + + | Address | [address] | | | [place] [address] | + + + | Home Phone [...] + | Katalina Padilla | ECON | [address] | | | | | [place], [place] | | | | | [address] | | + + + + + | Ellie Vang | ECON | Unknown | | + + + + + Care Team Providers + +------+ + | Care Nurse Practitioner Per Diem Name | Role | Phone | + +------+ + | Fadi Goodrich DO | PCP | | + +------+ + Encounter Details +--------+ + + + + | Date | Type | Department | Care Team | Description | +--------+ + + + + | 11/04/ | Telephone | Pain Center at [facility] | Leslie Mistry, | | | 2017 | | [address] | PhD [address] [facility] | | | | | [facility] | [facility] | | | | | and Healing, | [place], [place] | | | | | [facility] | [address] | | | | | Floor [place], [place] | [phone] | | | | | [address] | | | | | | [phone] | | | +--------+ + + + [...] Telephone Encounter - Leslie Mistry, PhD - 11/04/2017 9:42 AM PDTBARIATRIC RE-EVALUATI ON (INCLUDING DIET AND EXERCISE COUNSELING) PHONE CALL Name: Elzbieta Cristina : 1975 Medical Record: [id number] Age: 42 y.o. Weight on 10/30/17: 394 lbs, BMI = 79.66 Initial Consultation Date: 10/02/2017 Re-evaluated patient's candidacy for bariatric surgery. Reviewed recommendations from our jesus ast phone call: 1. Eat more regularly and eat healthier foods. Will eat less granola, eat grilled instead o f breaded chicken, and have raw vegetables instead of gustavo crackers. --> completed, has st opped eating granola and is making healthier food choices. Patient has stopped eating breade d chicken but has yet to replace it with plain chicken, however, she plans to do so. 2. Start meeting with a mental health therapist regularly to address mood --> Met with henok schaeffer and felt a good connection. She has scheduled to meet with him weekly. 3. Continue walking more, aiming to slowly increase to 5x/week for 30 minutes --> Completed , is walking 10 minutes every day and working to increase her walking. Diagnosis: 1. Morbid obesity 2. Bipolar Disorder 3. BMI 70.0-79.9 4. Unspecified Anxiety Disorder RECOMMENDATIONS: Elzbieta Cristina appears to be an appropriate candidate for bariatric surgery. She has demo nstrated an ability to make and maintain behavioral health changes and is also addressing he r mental health by meeting with a therapist weekly. Total time I spent was approximately 15 minutes on the phone. Leslie Mistry, PhD Clinical Psychologist [facility] [address] [place] [address] and [facility], [address] [place] [address] Nvbajonbobkgre signed by Leslie Mistry, PhD at 11/04/2017 9:50 AM PDTdocume nted in this encounter Plan of [...] Rd | | | | | | [place], [place] | | | | | | [address] | | | | | | [phone] | | | | | | | | +--------+---------+ + + + documented as of this encounter Visit Diagnoses Not on filedocumented in this encounter"
--- OUTSIDE RECORDS SUMMARY | ~2020-04-17 | XMS | Encounter Summary ---
Demographics + + + | Address | [address] | | | [place] [address] | + + + | Home Phone [...] + | Katalina Padilla | ECON | [address] | | | | | [place], [place] | | | | | [address] | | + + + + + | Ellie Vang | ECON | Unknown | | + + + + + Care Team Providers + +------+ + | Care Kennel Worker Name | Role | Phone | [...] | [facility] | | | with PASSENGER SERVICE REPRESENTATIVE | | hypertension | [address] | [address] | | | | | Right | [address] | [address] | | | | | heart | [facility] [place] | Center for | | | | | failure | [address] | Health and | | | | | ([facility]) Type | Phone: | Healing, | | | | | 2 diabetes | [phone] | [address] | | | | | mellitus | Fax: | [place], [place] | | | | | without | [phone] | [address] | | | | | complication | | Phone: | | | | | , with | | | | | | | long-term | | Fax: | | | | | current use | | [phone] | | | | | of insulin | | | | | | | ([facility]) | | | | | | [...] | | 2 diabetes | JEAN, | [place], [place] | | | | | mellitus | [place] [address] | [address] | | | | | without | Phone: | Phone: | | | | | complication | [phone] | [phone] | | | | | (HCC) | Fax: | Fax: | | | | | Procedures | [phone] | [phone] | | | | | [place] EST | | | | | | [...] | Visit | Preventive at [facility] | MD [address] | hypertension | | | | [address] | [place], [place] | (Primary Dx); Right | | | | [facility] | [address] | heart failure (HCC); | | | | and Healing, | [phone] | Type 2 diabetes | | | | [address] | | mellitus without | | | | [place], [place] | | complication, with | | | | [address] | | long-term current | | | | [phone] | | use of insulin (HCC) | +--------+---------+ + + + Social [...] 81 mg by mouth once daily. CALCIUM [id number]-GENIS ORAL Take 2 tablets by mouth two [...] then she has worked closely with her [facility] doctor and has been been able [...] 12 CREATININE PLASMA (LAB) 0.79 EGFR - UZBEK >60 EGFR NON -UZBEK >60 GLUCOSE, PLASMA (LAB) 170 (H) CALCIUM, [...] day 6) Follow-up 4-6 months P M PDTdocumented in this encounter Plan of Treatment +--------+---------+ + + + | Date | Type | Specialty | Care Team | Description | +--------+---------+ + + + | 06/08/ | Office | Plastic Surgery | Antoinette Hale, | | | 2019 | Visit | | [address] | | | | | | [address] | | | | | | [place], [place] | | | | | | [address] | | | | | | [phone] | | | | | | | [...] + + + + + | [facility] | [address] | [place] [address] | | | LYDIA RANGEL | CLARENCE [...] methodology and reference ranges effective May | | | 2015. | LABORATORY | | | SERVICES, LIPID | + + + + + + + + | Performing | Address | City/State/Zipcode | Phone Number | | Organization | | | | + + + + + | [facility] | [address] | [place], [place] | | | SERVICES, LIPID | [address] | [address] | | + + + + + [...] glycated albumin should be considered for monitoring fpc | LABORATORY | | glycemic control in [...] [place] [facility] | [address] | [place] [address] | | | SERVICES, SPECIAL | PARK [...] | | | LABORATORY | | | UZBEK | | | SERVICES, | | | [...] + + + + + | [facility] | [address] | [place] [address] | | | SERVICES, CORE | CLARENCE [...]
--- OUTSIDE RECORDS SUMMARY | ~2020-04-17 | XMS | Encounter Summary ---
Demographics + + + | Address | [address] | | | [place] [address] | + + + | Home Phone [...] [place], [place] | | | | | [address] | | + + + + + | Ellie Vang | ECON | Unknown | | + + + + + Care Team Providers + +------+ + | Care Surveying Or Spatial Science Technician Name | Role | Phone | + +------+ + | Kenyatta Cardenas MD | PCP | | + +------+ + Encounter Details +--------+--------+ + + + | Date | Type | Department | Care Team | Description | +--------+--------+ + + + | 09/15/ | Travel | | | | | [...] Rd | | | | | | [place], [place] | | | | | | [address] | | | | | | [phone] | | | | | | | | +--------+---------+ + + + documented as of this encounter Visit Diagnoses Not on filedocumented in this encounter"
--- OUTSIDE RECORDS SUMMARY | ~2020-04-17 | XMS | Encounter Summary ---
Demographics + + + | Address | [address] | | | [place] [address] | + + + | Home Phone [...] + | Katalina Padilla | ECON | [address] | | | | | [place], [place] | | | | | [address] | | + + + + + | Ellie Vang | ECON | Unknown | | + + + + + Care Team Providers + +------+ + | Care Economic Forecaster Name | Role | Phone | + [...] | | | | [address] | [place], [place] | | | | | | [place], | [address] | | | | | | [place] | Phone: | | | | | | [address] | [phone] | | | | | | Phone: | Fax: | | | | | | [phone] | [phone] | | | | | | Fax: | | | | | | | [phone] | | +--------+--------+ + + + + [...] | | | | hernia | [place] | [address] | | | | | without | SURGICAL | [address] | | | | | mention of | [facility] [address] [place], | | | | | obstruction | [address] | [place] | | | | | or gangrene | AVE | [address] | | | | | | [place], | Phone: | | | | | | [place] [address] | [phone] | | | | | | Phone: | Fax: | | | | | | [phone] | [phone] | | | | | | Fax: | | | | | | | [phone] | | +--------+--------+ + + + + Encounter Details +--------+---------+ + + + | Date | Type | Department | Care Team | Description | +--------+---------+ + + + | 10/07/ | Office | Digestive Health | Hernandez Brian, | Hernia (Primary Dx) | | 2012 | Visit | Center at [facility] [address] | [address] [facility] | | | | | [facility] | [address] | | | | | for Health and | [place], [place] | | | | | [facility] 2 | [address] | | | | | [place], [place] | [phone] | | | | | [address] | | | | | | [phone] | | | +--------+---------+ + + + [...] original. SURGERY HISTORY AND PHYSICAL Attending Physician: Lvei Brian MD Author: Howie Faria MD; MIS/Bariatric [...] colonoscopy), but a referral [place] [facility] [place] mentioned this was probably [...] issues. 2. Optimally will need coordination for [facility] Medicaid & [facility] Bariatric program for wt loss. 3. [...] material. 4. Continue to meet with her Die Cast Die Maker in the outpatient setting for diet and [...] has been instructed to f/u w/ her energy efficiency finance manager for a strict diet of <1000 kcal/d [...] teaching. Howie Faria MD MIS/Bariatric Fellow, Pager 34489 [facility] Attending provider: Hernandez Brian MD documented in this en counter Miscellaneous Notes Scan - Other, Faculty - 11/12/2012 1:34 PM PDTElectronically signed by Faculty Other at 1:34 PM PDTScan - Other, Faculty - 10/20/2012 2:31 PM PDT documented in this encounter Plan of [...] Rd | | | | | | [place], [place] | | | | | | [address] | | | | | | [phone] | | | | | | | [...] MDAuthor: | | | | | | SEVEIRANO DOS SANTOS MD I have | | [...]
--- OUTSIDE RECORDS SUMMARY | ~2020-04-17 | XMS | Encounter Summary ---
Demographics + + + | Address | [address] | | | [place] [address] | + + + | Home Phone | | + + + | Preferred Language | Unknown | + + + | Marital Status | | + + + | Jewish Affiliation | Unknown | + + + | Race | White | + + + | Ethnic Group | Not or | + + + Author + + + | Author | [facility] | | | and Jeffana | + + + | Organization | [facility] | | [...] Team Providers + +------+ + | Care Ground Crewman Name | Role | Phone | + +------+ + PCP | Unavailable | + +------+ + Encounter Details +--------+ + + + + | Date | Type | Department | Care Team | Description | +--------+ + + + + | 06/08/ | Orders Only | [facility] | Jh Kishan | | | 2015 | | CONVERSION [address] | MD [address] | | | | | [address] | [address] [facility] [address] | | | | | [place], [place] | [place] [address] | | | | | [address] | [phone] | | | | | [phone] | | | +--------+ + + + [...] D | | | | | | [place] [address] | | | | | | [phone] | | | | | | | | +--------+ + + + + documented as of this encounter Procedures + +--------+ + + + | Procedure Name | Priori | Date/Time | Associated Diagnosis | Comments | | | ty | | | | + +--------+ + + + | ECHO INTERPRETATION | Routin | 01/02/2016 | | Results for this | | OF OUTSIDE FILMS | e | 4:16 PM | | procedure are in the | | | | PDT | | results section. | + +--------+ + + + documented in this encounter Results ECHO Interpretation of Outside Films (01/02/2016 4:16 PM PDT) + + | Specimen | + + | | + + + + + | Impressions | Performed At | + + + | 1. See Dictation. TDS. Sinus. 2. Cardiac chamber dimensions | | | grossly NML. LV systolic and diastolic functions grossly NML, unable | | | to assess segmental wall motion, [place]ow visually estimates LVEF | | | >70%. RV grossly NML. 3. Aortic valve sclerotic, no /AI | | | observed. Mitral and Tricuspid valves grossly NML, Pulmonic valve | | | not seen well. Trace TR. 4. No Pericardial effusion. 5. IVC not seen | | | well. | | + + + + + + | Narrative | Performed At | + + + | Patient Name: Elzbieta Cristina Date of : 1975 | | | Performing Physician: Edson Cruz DO | | | | | | INDICATIONS SOB CONCLUSIONS 1. See | | | Dictation. TDS. Sinus. 2. Cardiac chamber dimensions grossly NML. | | | LV systolic and diastolic functions grossly NML, unable to assess | | | segmental wall motion, [place] visually estimates LVEF >70%. RV | | | grossly NML. 3. Aortic valve sclerotic, no /AI observed. Mitral | | | and Tricuspid valves grossly NML, Pulmonic valve not seen well. | | | Trace TR. 4. No Pericardial effusion. 5. IVC not seen well. | | | FINDINGS -------- ECG rhythm: Sinus rhythm. Study: This was a | | | technically difficult study with suboptimal views. Left Ventricle: | | | Left ventricular systolic function is hyperdynamic with an estimated | | | EF of >70%. Left Ventricle: The left ventricle cavity size is normal. | | | Left Ventricle: Left ventricular wall thickness is normal. Left | | | Ventricle: The diastolic filling pattern is normal for the age of the | | | patient. Left Ventricle: Poor endocardial border definition prevents | | | accurate regional wall motion abnormality identification. Right | | | Ventricle: The right ventricle is normal in size. Right Ventricle: | | | The right ventricular systolic function is normal. Left Atrium: The | | | left atrium is normal in size. Right Atrium: The right atrium is | | | normal in size. Aortic Valve: There is mild aortic valve sclerosis | | | without stenosis. Aortic Valve: There is no evidence of aortic | | | regurgitation. Mitral Valve: The mitral valve is normal. Mitral | | | Valve: No mitral regurgitation. Tricuspid Valve: The tricuspid valve | | | appears structurally normal. Tricuspid Valve: Trace tricuspid | | | regurgitation present. Pulmonic Valve: The pulmonic valve was not | | | well visualized. Pericardium: There is no pericardial effusion. | | | IVC/Hepatic Veins: The IVC was not well visualized. MEASUREMENTS | | | Service Counselor: JESSICA Authenticated by: Edson Cruz DO | | | Report Date/Time: 01-02-2016 19:12:36 | | + + + + + | Procedure Note | + + | David Burgess Conversion - 03/17/2019 8:31 PM PDT Patient Name: Sherrell Cristina | | : 1975 Performing Physician: Edson Cruz | | DO INDICATIONS S | | OB CONCLUSIONS 1. See Dictation. TDS. Sinus. 2. Cardiac chamber dimensions | | grossly NML. LV systolic and diastolic functions grossly NML, unable to assess | | segmental wall motion, Bolckow visually estimates LVEF >70%. RV grossly NML. 3. Aortic | | valve sclerotic, no /AI observed. Mitral and Tricuspid valves grossly NML, Pulmonic | | valve not seen well. Trace TR. 4. No Pericardial effusion. 5. IVC not seen well. | | FINDINGS--------ECG rhythm: Sinus rhythm.Study: This was a technically difficult study | | with suboptimal views.Left Ventricle: Left ventricular systolic function is hyperdynamic | | with an estimated EF of >70%.Left Ventricle: The left ventricle cavity size is | | normal.Left Ventricle: Left ventricular wall thickness is normal.Left Ventricle: The | | diastolic filling pattern is normal for the age of the patient.Left Ventricle: Poor | | endocardial border definition prevents accurate regional wall motion abnormality | | identification.Right Ventricle: The right ventricle is normal in size.Right Ventricle: | | The right ventricular systolic function is normal.Left Atrium: The left atrium is normal | | in size.Right Atrium: The right atrium is normal in size.Aortic Valve: There is mild | | aortic valve sclerosis without stenosis.Aortic Valve: There is no evidence of aortic | | regurgitation.Mitral Valve: The mitral valve is normal.Mitral Valve: No mitral | | regurgitation.Tricuspid Valve: The tricuspid valve appears structurally normal.Tricuspid | | Valve: Trace tricuspid regurgitation present.Pulmonic Valve: The pulmonic valve was not | | well visualized.Pericardium: There is no pericardial effusion.IVC/Hepatic Veins: The | | IVC was not well visualized. MEASUREMENTS Service Counselor: HONEYuthenticated by: | | Edson Jones Date/Time: 01-02-2016 19:12:36 IMPRESSION: 1. See Dictation. | | TDS. Sinus. 2. Cardiac chamber dimensions grossly NML. LV systolic and diastolic | | functions grossly NML, unable to assess segmental wall motion, Bolckow visually estimates | | LVEF >70%. RV grossly NML. 3. Aortic valve sclerotic, no /AI observed. Mitral and | | Tricuspid valves grossly NML, Pulmonic valve not seen well. Trace TR. 4. No Pericardial | | effusion. 5. IVC not seen well. | |Left Atrium: The left atrium is normal in size. | |Right Atrium: The right atrium is normal in size. | |Aortic Valve: There is mild aortic valve sclerosis without stenosis. | |Aortic Valve: There is no evidence of aortic regurgitation. | |Mitral Valve: The mitral valve is normal. | |Mitral Valve: No mitral regurgitation. | |Tricuspid Valve: The tricuspid valve appears structurally normal. | |Tricuspid Valve: Trace tricuspid regurgitation present. | |Pulmonic Valve: The pulmonic valve was not well visualized. | |Pericardium: There is no pericardial effusion. | |IVC/Hepatic Veins: The IVC was not well visualized. | | | |MEASUREMENTS | | | | | |Service Counselor: | |Authenticated by: Edson Cruz DO | |Report Date/Time: 01-02-2016 19:12:36 | | | |IMPRESSION: | |1. See Dictation. TDS. Sinus. 2. Cardiac chamber dimensions grossly NML. LV systolic and diastolic functions grossly NML, unable to assess segmental wall motion, Bolckow visually es timates LVEF >70%. RV grossly | |NML. 3. Aortic valve sclerotic, no /AI | | observed. Mitral and Tricuspid valves grossly NML, Pulmonic valve not seen well. Trace T R. 4. No Pericardial effusion. 5. IVC not seen well. | + + documented in this encounter Visit Diagnoses Not on filedocumented in this encounter"
--- OUTSIDE RECORDS SUMMARY | ~2020-04-17 | XMS | Encounter Summary ---
Demographics + + + | Address | [address] | | | [place] [address] | + + + | Home Phone [...] [place], [place] | | | | | [address] | | + + + + + | Ellie Vang | ECON | Unknown | | + + + + + Care Team Providers + +------+ + | Care Coremaker Floor Name | Role | Phone | + +------+ + | Fadi Goodrich DO | PCP | | + +------+ + Reason for Visit +--------+--------+ + | Reason | Onset | Comments | | | Date | | +--------+--------+ + | Other | 06/20/ | labs | | | 2012 | | +--------+--------+ + Encounter Details +--------+ + + + + | Date | Type | Department | Care Team | Description | +--------+ + + + + | 06/20/ | Telephone | Digestive Health | Hernandez Brian, | Other (labs) | | 2012 | | Center [address] | [address] | | | | | Alma Delia Mailcode: CH4S | [facility] | | | | | [facility] | [place], [place] | | | | | and [place], | [address] | | | | | [place] [address] | [phone] | | | | | Floor [place], [place] | | | | | | [address] | | | | | | [phone] | | | +--------+ + + + [...] this encounter Miscellaneous Notes Telephone Encounter - Nitza Jacobson - 06/20/2013 9:52 AM PSTAlready faxed orders ashvin swartz on results. elephone Encounter - Selam Dumont - 06/20/2013 9:42 AM PSTJocelynn from [facility] called stat ing pt called them saying she needed to have labs done but didn't know for what or what type of labs. Lab needs us to fax over Diagnosis and Request for appropriate labs on their Reque st form. [phone] fax [phone] ph dequan han in this encounter Plan of Treatment +--------+---------+ + + + | Date | Type | Specialty | Care Team | Description | +--------+---------+ + + + | 06/08/ | Office | Plastic Surgery | Antoinette Hale, | | | 2019 | Visit | | [address] | | | | | | [address] | | | | | | [place], [place] | | | | | | [address] | | | | | | [phone] | | | | | | | | +--------+---------+ + + + documented as of this encounter Visit Diagnoses Not on filedocumented in this encounter"
--- OUTSIDE RECORDS SUMMARY | ~2020-04-17 | XMS | Encounter Summary ---
Demographics + + + | Address | [address] | | | [place] [address] | + + + | Home Phone [...] [place], [place] | | | | | [address] | | + + + + + | Ellie Vang | ECON | Unknown | | + + + + + Care Team Providers + +------+ + | Care Mechanical Systems Design Engineer Name | Role | Phone | + +------+ + | Fadi Goodrich DO | PCP | | + +------+ + Encounter Details +--------+ + + + + | Date | Type | Department | Care Team | Description | +--------+ + + + + | 02/15/ | Abstract | Digestive Health | Hernandez Brian, | | | 2012 | | [place] [address] [address] | [address] [facility] | | | | | [facility] | [facility] | | | | | for [facility] and | [place], [place] | | | | | [facility] 2 | [address] | | | | | [place], [place] | [phone] | | | | | [address] | | | | | | [phone] | | | +--------+ + + + [...] | | 2019 | Visit | | [address] | | | | | | [address] | | | | | | [place], [place] | | | | | | [address] | | | | | | [phone] | | | | | | | | +--------+---------+ + + + documented as of this encounter Visit Diagnoses Not on filedocumented in this encounter"
--- OUTSIDE RECORDS SUMMARY | ~2020-04-17 | XMS | Encounter Summary ---
Demographics + + + | Address | [address] | | | [place] [address] | + + + | Home Phone [...] + | Katalina Padilla | ECON | [address] | | | | | [place], [place] | | | | | [address] | | + + + + + | Ellie Vang | ECON | Unknown | | + + + + + Care Team Providers + +------+ + | Care Semiconductor Bonder Name | Role | Phone | + +------+ + | Fadi Goodrich DO | PCP | | + +------+ + Encounter Details +--------+ + + + + | Date | Type | Department | Care Team | Description | +--------+ + + + + | 08/22/ | Abstract | Cardiology | Randell Franks, | | | 2013 | | Preventive at [facility] | MD [address] | | | | | [address] | [place], [place] | | | | | [facility] | [address] | | | | | and [place], | [phone] | | | | | [address] | | | | | | [facility] [place] | | | | | | [address] | | | | | | [phone] | | | +--------+ + + + [...] | 2019 | Visit | | [address] | | | | | | [address] | | | | | | [place], [place] | | | | | | [address] | | | | | | [phone] | | | | | | | | +--------+---------+ + + + documented as of this encounter Visit Diagnoses Not on filedocumented in this encounter"
--- OUTSIDE RECORDS SUMMARY | ~2020-04-17 | XMS | Encounter Summary ---
Demographics + + + | Address | [address] | | | [place] [address] | + + + | Home Phone [...] Author | [facility] | | | and Jeffana | + + + | Organization | [facility] | | | and [...] Team Providers + +------+ + | Care Stock Preparation Operator Name | Role | Phone | + +------+ + | Jorje Hill | PCP | | + +------+ + Reason for Visit + +--------+ + | Reason | Onset | Comments | | | Date | | + +--------+ + | Referral | 01/11/ | | | | 2020 | | + +--------+ + Encounter Details +--------+ + + + + | Date | Type | Department | Care Team | Description | +--------+ + + + + | 01/11/ | Telephone | [facility] | Camille De La Paz, | Referral | | 2020 | | NEUROLOGY [address] | MD [address] | | | | | [address] | [address] [facility] [address] | | | | | [place], [place] | [place] [address] | | | | | [address] | [phone] | | | | | [phone] | | | +--------+ + + + [...] this encounter Miscellaneous Notes Telephone Encounter - Diann Gonzalez - 01/12/2020 4:12 PM PDTMisty, is returning call for Referral and would like a call back. Additional Call Details: Returning call to schedule from referral. Home number elephone Encounter - Rebecca Patel - 01/12/2020 2:26 PM PDTMisty, is returning call for Referral and would like a call back. Additional Call Details: Returning call. Please call Elzbieta back at home number in chart. elephone Encounter - Leora Quiros - 01/12/2020 2:24 PM PDTLVM to return call when available. Electronically delfina d by Leora Hopkins at 01/12/2020 2:25 PM PDTTelephone Encounter - Rebecca Shelley - 020 1:41 PM PDTMisty, is calling regarding Referral and would like a call back. Additional Call Details: Calling to schedule from new referral. Please call Elzbieta back at home number in chart. If this is a symptom based call, was patient offered triage? Not Applicable If this is a symptom based call and you were unable to immediately transfer the call to a romeo ellis testboard operator was caller made aware that if at any time she feels it is an emergency they sh ould call 911 or go to the nearest emergency room? not applicable documented in this encounter Plan of Treatment [...] [address] | | | | | | [place] [address] | | | | | | [phone] | | | | | | | | +--------+ + + + + documented as of this encounter Visit Diagnoses Not on filedocumented in this encounter"
--- OUTSIDE RECORDS SUMMARY | ~2020-04-17 | XMS | Encounter Summary ---
Demographics + + + | Address | [address] | | | [place] [address] | + + + | Home Phone [...] + | Katalina Padilla | ECON | [address] | | | | | [place], [place] | | | | | [address] | | + + + + + | Ellie Vang | ECON | Unknown | | + + + + + Care Team Providers + +------+ + | Care Water Inspector Name | Role | Phone | [...] | | | | | ([facility]) | [address] | [address] | | | | | Procedures | [place], [place] | [place], [place] | | | | | CONSULT TO | [address] | [address] | | | | | CAR | Phone: | Phone: | | | | | PREVENTATIVE | [phone] | [phone] | | | | | [facility] - | Fax: | Fax: | | | | | LIPIDS | [phone] | [phone] | +--------+--------+ + + + + Reason [...] | | 2 diabetes | [place], | [place], [place] | | | | | mellitus | [place] [address] | [address] | | | | | without | Phone: | Phone: | | | | | complication | [phone] | [phone] | | | | | (HCC) | Fax: | Fax: | | | | | Procedures | [phone] | [phone] | | | | | [place] EST | | | | | | [...] | 2017 | Visit | Preventive at [facility] | MD [address] | hypertension | | | | [address] | [facility] [place] | (Primary Dx); Right | | | | [facility] | [address] | heart failure (HCC) | | | | and Healing, | [phone] | | | | | [address] | | | | | | [place], [place] | | | | | | [address] | | | | | | [phone] | | | +--------+---------+ + + + [...] 1 tablet by mouth once daily CALCIUM [id number]-GENIS ORAL Take 2 tablets by mouth two [...] | | 2019 | Visit | | [address] | | | | | | [address] | | | | | | [place], [place] | | | | | | [address] | | | | | | [phone] | | | | | | | | +--------+---------+ + + + documented as of this encounter Visit Diagnoses + + | Diagnosis | + + | Essential hypertension - Primary | + + | Right heart failure (HCC) Congestive heart failure, unspecified | + + documented in this encounter
--- OUTSIDE RECORDS SUMMARY | ~2020-04-17 | XMS | Encounter Summary ---
Demographics + + + | Address | [address] | | | [place] [address] | + + + | Home Phone [...] [place], [place] | | | | | [address] | | + + + + + | Ellie Vang | ECON | Unknown | | + + + + + Care Team Providers + +------+ + | Care Terrazzo Mechanic Name | Role | Phone | + +------+ + | Fadi Goodrich DO | PCP | | + +------+ + Encounter Details +--------+ + + + + | Date | Type | Department | Care Team | Description | +--------+ + + + + | 10/27/ | Telephone | Pain Center at [facility] | Leslie Mistry, | | | 2017 | | [address] | PhD [address] [facility] | | | | | [facility] | [facility] | | | | | and Healing, | [place], [place] | | | | | [facility] | [address] | | | | | Floor [place], [place] | [phone] | | | | | [address] | | | | | | [phone] | | | +--------+ + + + [...] Name: Elzbieta Cristina : 1975 Medical Record: [id number] Age: 42 y.o. Weight on 10/02/17, per patient report: 305 lbs Weight on 09/11/17: 389, BMI 73.54 Initial Consultation Date: 10/02/2017 Re-evaluated patient's candidacy for bariatric surgery. Reviewed recommendations from initi al visit: 1. Eat more regularly and eat healthier foods --> Completed, reported the following diet: - 8:30 AM (30 minutes after waking) has georgian yogurt, fruit, and some granola - 11:30 breaded chicken and fresh fruit 3 PM georgian yogurt, gustavo crackers, or raw vegetables 6 [...] the phone. Leslie Mistry, PhD Clinical Psychologist [facility] [address] [facility], [address]th [place] [address] [email or web address] signed by Leslie Mistry, PhD at 10/27/2017 10:59 AM Nicole soler in this encounter Plan of Treatment +--------+---------+ + + + | Date | Type | Specialty | Care Team | Description | +--------+---------+ + + + | 06/08/ | Office | Plastic Surgery | Antoinette Hale, | | | 2019 | Visit | | [address] | | | | | | [address] | | | | | | [place], [place] | | | | | | [address] | | | | | | [phone] | | | | | | | | +--------+---------+ + + + documented as of this encounter Visit Diagnoses Not on filedocumented in this encounter"
--- OUTSIDE RECORDS SUMMARY | ~2020-04-17 | XMS | Encounter Summary ---
Demographics + + + | Address | [address] | | | [place] [address] | + + + | Home Phone [...] + | Katalina Padilla | ECON | [address] | | | | | [place], [place] | | | | | [address] | | + + + + + | Ellie Vang | ECON | Unknown | | + + + + + Care Team Providers + +------+ + | Care Portable Sawyer Name | Role | Phone | + +------+ + | Fadi Goodrich DO | PCP | | + +------+ + Reason for Visit + +--------+ + | Reason | Onset | Comments | | | Date | | + +--------+ + | Refill Request | 04/26/ | | | | 2015 | | + +--------+ + Encounter Details +--------+ + + + + | Date | Type | Department | Care Team | Description | +--------+ + + + + | 04/26/ | Telephone | Cardiology | Randell Franks, | Refill Request | | 2014 | | Preventive at [facility] | MD [address] | | | | | [address] | [place], [place] | | | | | [facility] | [address] | | | | | and [place], | [phone] | | | | | [facility] | | | | | | [place], [place] | | | | | | [address] | | | | | | [phone] | | | +--------+ + + + [...] Telephone Encounter - Corazon Alexis RN - 04/26/2015 3:10 PM PDTRefill phoned to sharon Smith signed by Corazon Alexis RN at 04/26/2015 3:11 PM PDTTelephone Deepti Tim - 04/26/2015 12:29 PM PDTPharmacy Preference [facility] Provider Dr. Franks patient Medication phentermine 37.5 mg oral tablet Is patient currently out of this medication? Yes Other Information Patient called to verify that the refill request was received. Best number to reach patient today: Home phone Best time to reach the patient is between anytime elephone Encounter - Rhona Nino MA - 04/26/2015 8:22 AM PDTFormatting of this note might be different from the o riginal. Refill Request for: Requested Prescriptions Pending Prescriptions Disp Refills phentermine 37.5 mg oral tablet 90 tablet 1 Sig: Take 1 tablet by mouth once daily in the morning. Administer before breakfast. Patient Last Seen: 04/03/15 Follow Up Plan: RC 4 months. Scheduled 08/14/[address] Franks. Please review and sign if appropriate Electronically signed by Rhona Mccullough MA at 8:24 AM PDTdocumented in this encounter Plan of Treatment +--------+---------+ + + + | Date | Type | Specialty | Care Team | Description | +--------+---------+ + + + | 06/08/ | Office | Plastic Surgery | Antoinette Hale, | | | 2019 | Visit | | [address] | | | | | | [address] | | | | | | [place], [place] | | | | | | [address] | | | | | | [phone] | | | | | | | | +--------+---------+ + + + documented as of this encounter Visit Diagnoses Not on filedocumented in this encounter"
--- OUTSIDE RECORDS SUMMARY | ~2020-04-17 | XMS | Encounter Summary ---
Demographics + + + | Address | [address] | | | [place] [address] | + + + | Home Phone [...] + | Katalina Padilla | ECON | [address] | | | | | [place], [place] | | | | | [address] | | + + + + + | Ellie Vang | ECON | Unknown | | + + + + + Care Team Providers + +------+ + | Care County Surveyor Name | Role | Phone | + +------+ + | Jorje Hill MD | PCP | | + +------+ + Encounter Details +--------+ + + + + | Date | Type | Department | Care Team | Description | +--------+ + + + + | 03/10/ | Pharmacy | [facility] | | | | 2018 | Visit | & [facility] | | | | | | [address] | | | | | | Mailcode: Center | | | | | | [facility] | | | | | | [facility] | | | | | | [place], [place] | | | | | | [address] | | | | | | [phone] | | | +--------+ + + + [...] | | 2020 | Visit | | [address] | | | | | | [address] | | | | | | [place], [place] | | | | | | [address] | | | | | | [phone] | | | | | | | | +--------+---------+ + + + documented as of this encounter Visit Diagnoses Not on filedocumented in this encounter"
--- OUTSIDE RECORDS SUMMARY | ~2020-04-17 | XMS | Encounter Summary ---
Demographics + + + | Address | [address] | | | [place] [address] | + + + | Home Phone [...] + | Katalina Padilla | ECON | [address] | | | | | [place], [place] | | | | | [address] | | + + + + + | Ellie Vang | ECON | Unknown | | + + + + + Care Team Providers + +------+ + | Care Banquet Director Name | Role | Phone | [...] | | | | | Procedures | [place], [place] | | | | | | [facility] | [address] | | | | | | C | Phone: | | | | | | ECHOCARDIOGR | [phone] | | | | | | AM, ADULT | Fax: | | | | | | | [phone] | | +--------+--------+ + + + + [...] | 2016 | Visit | Preventive at [facility] | MD [address] | exertion) (Primary | | | | [address] | [place], [place] | Dx) | | | | [facility] | [address] | | | | | and Healing, | [phone] | | | | | [address] | | | | | | [place], [place] | | | | | | [address] | | | | | | [phone] | | | +--------+---------+ + + + [...] 500 mg by mouth once daily. CALCIUM CRB&LAC-L1-QTN02-GENIS ORAL Take 1 tablet by mouth two [...] himself to the local hospit al in [place] and so this has been delayed. ROS: [...] to lose the additional weight requested by [facility]. This current [...] | | 2019 | Visit | | [address] [facility] | | | | | | [address] | | | | | | [place], [place] | | | | | | [address] | | | | | | [phone] | | | | | | | [...]
--- OUTSIDE RECORDS SUMMARY | ~2020-04-17 | XMS | Encounter Summary ---
Demographics + + + | Address | [address] | | | [place] [address] | + + + | Home Phone [...] + | Katalina Padilla | ECON | [address] | | | | | [place], [place] | | | | | [address] | | + + + + + | Ellie Vang | ECON | Unknown | | + + + + + Care Team Providers + +------+ + | Care Molder Apprentice Name | Role | Phone | + +------+ + | Fadi Goodrich DO | PCP | | + +------+ + Encounter Details +--------+ + + + + | Date | Type | Department | Care Team | Description | +--------+ + + + + | 11/09/ | Abstract | Cardiology | Randell Franks, | | | 2014 | | Preventive at [facility] | MD [address] | | | | | [address] | [place], [place] | | | | | [facility] | [address] | | | | | and [place], | [phone] | | | | | Building [address] | | | | | | [facility] [place] | | | | | | [address] | | | | | | [phone] | | | +--------+ + + + [...] | | 2019 | Visit | | [address] [facility] | | | | | | [address] | | | | | | [place], [place] | | | | | | [address] | | | | | | [phone] | | | | | | | | +--------+---------+ + + + documented as of this encounter Visit Diagnoses Not on filedocumented in this encounter"
--- OUTSIDE RECORDS SUMMARY | ~2020-04-17 | XMS | Encounter Summary ---
Demographics + + + | Address | [address] | | | [place] [address] | + + + | Home Phone [...] [place], [place] | | | | | [address] | | + + + + + | Ellie Vang | ECON | Unknown | | + + + + + Care Team Providers + +------+ + | Care Fire Crew Worker Name | Role | Phone | [...] | 2019 | Visit | Preventive at [facility] | MD [address] | mellitus without | | | | [address] | [place], [place] | complication, with | | | | [facility] | [address] | long-term current | | | | and Healing, | [phone] | use of insulin (HCC) | | | | Building [address] | | (Primary Dx); | | | | [place], [place] | | Morbid obesity with | | | | [address] | | BMI of 70 and over, | | | | [phone] | | adult (HCC) | +--------+---------+ + [...] 04/14/2013 Priority: 3 Hypoventilation associated with obesity ([facility]) 06/16/2013 Priority: 4 AMARA (obstructive sleep apnea) 04/14/2013 Priority: 4 Overview Note: Cannot tolerate CPAP Severe Morbid obesity ([facility]), BMI 88 11/12/2012 Priority: 4 Overview Note: Lifetime max: 495 lbs Phentermine started Type 2 diabetes mellitus ([facility]) 04/14/2013 Priority: 5 Iron deficiency anemia due to chronic blood loss 11/11/2015 Priority: 6 Overview Note: Ferritin 18 on 10/2015 Hypoalbuminemia (no proteinuria, need to rule out synthetic, nutrition, loss) 6 Priority: 6 Hypothyroidism 08/28/2014 Priority: 8 Morbid obesity with BMI of 70 and over, adult ([facility]) 02/02/2017 Chronic diastolic heart failure ([facility]) 02/02/2017 Immobility 02/02/2017 Severe muscle deconditioning 02/02/2017 [...] daily. BELBUCA 300 mcg buccal film CALCIUM CRB&YYN-N7-SLK92-GENIS ORAL Take 2 tablets by mouth two [...] of metformin, and she reports her last nbxfy-jp-pahm A1 c was 5.5% on this dose. She was recently seen by the bariatric surgery team and because of her rapid weight loss sh e was advised to stop the topiramate. She [...] CREATININE PLASMA (LAB) 0.85 0.70 EGFR - BAHRAINI >60 >60 EGFR NON -BAHRAINI >60 >60 GLUCOSE, PLASMA (LAB) 123 (H) [...] is currently being managed well by her Cafeteria Associate with diuretics and main tenance of her [...] management of her heart failure by her Cafeteria Associate 3) discontinue metformin 4) check 24 urine [...] | | 2019 | Visit | | [address] [facility] | | | | | | [facility] | | | | | | [place], [place] | | | | | | [address] | | | | | | [phone] | | | | | | | [...] + + | [facility] - | [address] | [place] | [phone] | | [place] | | | | [...]
--- OUTSIDE RECORDS SUMMARY | ~2020-04-17 | XMS | Encounter Summary ---
Demographics + + + | Address | [address] | | | [place] [address] | + + + | Home Phone [...] + | Katalina Padilla | ECON | [address] | | | | | [place], [place] | | | | | [address] | | + + + + + | Ellie Vang | ECON | Unknown | | + + + + + Care Team Providers + +------+ + | Care Retail Zone Specialist Name | Role | Phone | [...] from | | 2016 | | at [facility] [address] | SOLDERING MACHINE TENDER [address] [facility] | | | | [facility] for | [place], [place] | | | | | Health and Healing, | [address] | | | | | [facility] | [phone] | | | | | Floor [place], [place] | | | | | | [address] | | | | | | [phone] | | | +--------+ + + + [...] PCP is getting her in with area detective [facility]. Plan to d/c apt with Cyndi Meier. [...] Rd | | | | | | [place], [place] | | | | | | [address] | | | | | | [phone] | | | | | | | | +--------+---------+ + + + documented as of this encounter Visit Diagnoses Not on filedocumented in this encounter"
--- OUTSIDE RECORDS SUMMARY | ~2020-04-17 | XMS | Encounter Summary ---
Demographics + + + | Address | [address] | | | [place] [address] | + + + | Home Phone | | + + + | Preferred Language | Unknown | + + + | Marital Status | | + + + | Buddhism Affiliation | Unknown | + + + | Race | White | + + + | Ethnic Group | Not or | + + + Author + + + | Author | [facility] | | | and [place] | + + + | Organization | [facility] | | [...] Providers + +------+ + | Care Web Sizer Name | Role | Phone | + +------+ + PCP | Unavailable | + +------+ + Encounter Details +--------+ + + + + | Date | Type | Department | Care Team | Description | +--------+ + + + + | 12/02/ | Orders Only | [facility] | Conversion | | | 2017 | | NEPHROLOGY [place] | Transaction, | | | | | [address] | Provider Unknown | | | | | [address] [place], [place] | | | | | | [address] | (Fax) | | | | | [phone] | | | +--------+ + + + [...] | | | | | | [address] | | | | | | [place] [address] | | | | | | [phone] | | | | | | | [...]
--- OUTSIDE RECORDS SUMMARY | ~2020-04-17 | XMS | Encounter Summary ---
Demographics + + + | Address | [address] | | | [place] [address] | + + + | Home Phone [...] + | Katalina Padilla | ECON | [address] | | | | | [place], [place] | | | | | [address] | | + + + + + | Ellie Vang | ECON | Unknown | | + + + + + Care Team Providers + +------+ + | Care Senior Etl Developer Name | Role | Phone [...] | | 2020 | | Preventive at [facility] | MD [address] | (topiramate 100 mg | | | | [address] | [place], [place] | oral tablet TID) | | | | [facility] | [address] | | | | | and Healing, | [phone] | | | | | Building [address] | | | | | | [place], [place] | | | | | | [address] | | | | | | [phone] | | | +--------+--------+ + + + [...] Telephone Encounter - Rhona Mccullough MA - 01/12/2020 4:50 PM PDTFormatting of this note harriet ht be different from the original. Refill Request For: Requested Prescriptions Pending Prescriptions Disp Refills topiramate 100 mg oral tablet [Pharmacy Med Name: Topiramate 50 MG Oral Tablet] 270 tab let 3 Sig: Take 1 tablet by mouth three times daily. Indications: essential tremor Patient Last Seen By Ordering Provider: Last Appointment in [facility] was on 0 at 3:32 pm with Randell Franks MD. Follow Up Plan: Next Appointment in [facility] is on 03/15/20 at 11:15 am with Beronica Franks MD. I called the patient to clarify the directions. She stated that she is taking 100 mg tablet s TID Please review and sign if appropriate documented [...] [address] | | | | | | [place] | | | | | | [address] | | | | | | [phone] | | | | | | | | +--------+---------+ + + + documented as of this encounter Visit Diagnoses Not on filedocumented in this encounter"
--- OUTSIDE RECORDS SUMMARY | ~2020-04-17 | XMS | Encounter Summary ---
Demographics + + + | Address | [address] | | | [place] [address] | + + + | Home Phone [...] | + + + + + | Katailna Padilla | ECON | [address] | | | | | [place], [place] | | | | | [address] | | + + + + + | Ellie Vang | ECON | Unknown | | + + + + + Care Team Providers + +------+ + | Care Tape Recording Machine Operator Name | Role | Phone | + +------+ + | Fadi Goodrich DO | PCP | | + +------+ + Encounter Details +--------+ + + + + | Date | Type | Department | Care Team | Description | +--------+ + + + + | 02/10/ | Telephone | Digestive Health | Hernandez Brian, | | | 2012 | | [place] [address] | MD [address] [facility] | | | | | [facility] | [facility] | | | | | for Health and | [place], [place] | | | | | [facility] | [address] | | | | | [place], [place] | [phone] | | | | | [address] | | | | | | [phone] | | | +--------+ + + + [...] this encounter Miscellaneous Notes Telephone Encounter - Orquidea Bragg - 02/10/2013 3:06 PM PDTPt offered 04/11 appt w/Dr Levi Brian. Accepted and scheduled.Electronically signed by Orquidea Bragg at 013 3:06 PM PDTTelephone Encounter - Edwige Fernandez RN - 02/10/2013 2:35 PM PDTReviewed records from Dr. Guillory, he is managing pt's acute symptoms and following up on CT scan. Rout ed to scheduling to call pt and schedule next available appt with Dr. Brian. Electronicall y signed by Edwige Fernandez RN at 02/10/2013 2:38 PM PDTTelephone Encounter - Erica Goode - 02/10/2013 12:13 PM PDTI returned pt call. Pt reports that 4 days ago she started to have pain 8/10 on her right side of abdomen above her old incision. Pt reports the area to be hard and tender to the touch. Pt states no lump or protrusion just hardness and swelling. Pt is unable to push anything back in. Pt reports having a fever on 02/09/13 of 100. Pt reports vomiting 2 to 3 days ago but now only having nausea and dry heaves. Pt is having normal BM's. Pt reports eating and drinking well. Pt reports she had an infection in her old incision and has been packing it. Pt saw Dr. Bau er for this. Pt states the hole is closing nicely. Pt would like to be evaluated by Dr. Brian as soon as possible. I advised pt that I would discuss the above information with KELSIE Gibbons and someone will olga lidia l her back with a plan. Pt agreed. elephone Encounter - Vince Paul - 02/10/2013 11:54 AM PDTPt calling stating molly t her hernia is back, although she had surgery with KD on 11/06. She would like to see Dr. Aimee Brian again for a f/u if possible. She states that the pain is coming from above her incision. She says that she had a CT @ [facility] which indicated her hernia was redeveloped. Pain scale at 8-9/10. Patient taking Dilaudid. Please call back at [phone] signed by Vince Paul at 02/10/2013 11:57 AM PDTdocumented in this encounter Plan of Treatment +--------+---------+ + + + | Date | Type | Specialty | Care Team | Description | +--------+---------+ + + + | 06/08/ | Office | Plastic Surgery | Antoinette Hale, | | | 2019 | Visit | | [address] | | | | | | [address] | | | | | | [place], [place] | | | | | | [address] | | | | | | [phone] | | | | | | | | +--------+---------+ + + + documented as of this encounter Visit Diagnoses Not on filedocumented in this encounter"
--- OUTSIDE RECORDS SUMMARY | ~2020-04-17 | XMS | Encounter Summary ---
Demographics + + + | Address | [address] | | | [place] [address] | + + + | Home Phone [...] + | Katalina Padilla | ECON | [address] | | | | | [place], [place] | | | | | [address] | | + + + + + | Ellie Vang | ECON | Unknown | | + + + + + Care Team Providers + +------+ + | Care Manager Of Business Name | Role | Phone | + [...] Description | +--------+--------+ + + + | 02/20/ | Refill | Cardiology in | Randell Franks, | Refill Request | | 2020 | | [facility] | [address] | | | | | [place] at | [place], [place] | | | | | [place] [address] | [address] | | | | | [facility] | [phone] | | | | | [facility] | | | | | | [place], [place] | | | | | | [address] | | | | | | [phone] | | | +--------+--------+ + + + [...] this encounter Miscellaneous Notes Telephone Encounter - Eda Morris MA - 02/23/2020 10:18 AM PDT Refill Request For: Requested Prescriptions Pending Prescriptions Disp Refills PHENTERMINE 37.5 mg oral tablet [Pharmacy Med Name: Phentermine HCl 37.5 MG Oral Tablet ] 90 tablet 1 Sig: TAKE 1 TABLET BY MOUTH IN THE MORNING BEFORE BREAKFAST Patient Last Seen By Ordering Provider: Last Appointment in [facility] was on 0 at 3:31 pm with Randell Franks MD. Follow Up Plan: Next Appointment in [facility] is on 03/22/20 at 2:45 pm with Beronica Franks MD. Please review and sign if appropriate elephone Encounter - Elida Kennedy - 02/23/2020 9:39 AM PDTREFILL REQUEST Person calling: Patient Medication(s) Needed: Phentermine Pharmacy (Name & Location) Preference: [facility] [address] [facility] [address] [phone] How many days worth of medication does patient have left? 0 pills left ~~~ ROUTE TO P CAR MED REFILL ~~~ ~~~ If less than 2 days on hand, route as HIGH PRIORITY~~~ documented in [facility] Plan of Treatment +--------+---------+ + + + | Date | Type | Specialty | Care Team | Description | +--------+---------+ + + + | 06/08/ | Office | Plastic Surgery | Antoinette Hale, | | | 2019 | Visit | | [address] | | | | | | [address] | | | | | | [place], [place] | | | | | | [address] | | | | | | [phone] | | | | | | | | +--------+---------+ + + + documented as of this encounter Visit Diagnoses Not on filedocumented in this encounter"
--- OUTSIDE RECORDS SUMMARY | ~2020-04-17 | XMS | Encounter Summary ---
Demographics + + + | Address | [address] | | | [place] [address] | + + + | Home Phone [...] [place], [place] | | | | | [address] | | + + + + + | Ellie Vang | ECON | Unknown | | + + + + + Care Team Providers + +------+ + | Care Wireless Sales Manager Name | Role | Phone [...] | | | | | (HCC) | [place], [place] | Hospital, | | | | | Procedures | [address] | 10th Floor | | | | | CT ABDOMEN & | Phone: | [place], [place] | | | | | [place] [address] | | [address] | | | | | IV CONTRAST | Fax: | Phone: | | | | | CT CT | [phone] | [phone] | | | | | ABDOMEN&PELV | | Fax: | | | | | IS | | [phone] | | | | | W/CONTRAST | [...] | | | | | | | [facility] | | | | | | | Health and | | | | | | | Healing, | | | | | | | [address] | | | | | | | [place], [place] | | | | | | | [address] | | | | | | | Phone: | | | | | | | [phone] | | | | | | | Fax: | | | | | | | [phone] | +--------+--------+ + + + + Encounter Details +--------+---------+ + + + | Date | Type | Department | Care Team | Description | +--------+---------+ + + + | 10/02/ | Office | Digestive Health | Shereen Georges, | Abdominal pain | | 2015 | Visit | Center at [facility] [address] | ACNP [address] | (Primary Dx); Morbid | | | | [address] | [address] [place], [place] | obesity (HCC) | | | | for Health and | [address] | | | | | [facility] | [phone] | | | | | [place], [place] | | | | | | [address] | | | | | | [phone] | | | +--------+---------+ + + + [...] up in th e air, Use a general studies program chair.... And get it really dry. Then use corn starch ..... Then use medicated powder... Please go to the 3rd floor for the study... [place] [id number] documented in this encounter Progress Notes Shereen Pinto ACNP - 10/02/2014 11:14 AM PDTFormatting of this note might be different fro m the original. BARIATRIC INITIAL VISIT Provider: Shereen Pinto DNP, DANIELLEP, HOUSEKEEPING ROOM ATTENDANT Referring Provider: Dr. Goodrich Reason for Requested [...] with the surgeon. Shereen Pinto DNP, ACNP, HOUSEKEEPING ROOM ATTENDANT Nurse Practitioner for Bariatric Surgery [facility] | [address] | [place], [place] | [address] | Potential Contraindications to Bariatric Surgery Age [...] other providers does not guarantee that the [facility] Bariatric Surger y program will [...] [address] | | | | | | [place], [place] | | | | | | [address] | | | | | | [phone] | | | | | | | [...]
--- OUTSIDE RECORDS SUMMARY | ~2020-04-17 | XMS | Encounter Summary ---
Demographics + + + | Address | [address] | | | [place] [address] | + + + | Home Phone | | + + + | Preferred Language | Unknown | + + + | Marital Status | | + + + | Quaker Affiliation | Unknown | + + + | Race | White | + + + | Ethnic Group | Not or | + + + Author + + + | Author | [facility] | | | and [place] | + + + | Organization | [facility] | | | [...] + +------+ + | Care In Home Caregiver Name | Role | Phone | + +------+ + | Jorje Hill | PCP | | + +------+ + Reason for Visit + +--------+ + | Reason | Onset | Comments | | | Date | | + +--------+ + | Follow-up(Procedure) | 06/27/ | | | | 2019 | | + +--------+ + Encounter Details +--------+ + + + + | Date | Type | Department | Care Team | Description | +--------+ + + + + | 06/27/ | Telephone | [facility] | Dharmesh Fierro, | Follow-up(Procedure) | | 2018 | | INTERVENTIONAL | RN | | | | | RADIOLOGY [address] | | | | | | [address] | | | | | | [place] | | | | | | [address] | | | | | | [phone] | | | +--------+ + + + [...] this encounter Miscellaneous Notes Telephone Encounter - Dharmesh Fierro RN - 06/27/2019 8:50 AM PSTRN spoke to pt and pt states she is doing fine. RN advised pt to call the clinic if any issues or concerns arise. Pt verbalized understanding. 8: 52 AM PSTdocumented in this encounter Plan of Treatment +--------+ + + + + | Date | Type | Specialty | Care Team | Description | +--------+ + + + + | 04/18/ | Procedure | Neurology | Camille De La Paz, | | | 2019 | visit | | MD Saumya MOE | | | | | | [facility] | | | | | | [place] [address] | | | | | | [phone] | | | | | | | | +--------+ + + + + documented as of this encounter Visit Diagnoses Not on filedocumented in this encounter"
--- OUTSIDE RECORDS SUMMARY | ~2020-04-17 | XMS | Encounter Summary ---
Demographics + + + | Address | [address] | | | [place] [address] | + + + | Home Phone [...] [place], [place] | | | | | [address] | | + + + + + | Ellie Vang | ECON | Unknown | | + + + + + Care Team Providers + +------+ + | Care Hot Press Operator Name | Role | Phone [...] | [facility] [address] | Andie Chun MD | | | 2012 - | Encounter | [address] | [address] | | | | | [place], [place] | [address] | | | 11/12/ | | [address] | [place], [place] | | | 2012 | | [phone] | [address] | | | | | | [phone] | | | | | | | [...] Author: AMINTA WILSON MD Attending Physician: Andie Chun MD PCP: Fadi Goodrich DO Admission Date: 11/06/2012 Discharge Date: 12 Nov 2012 Diagnoses Patient Active Problem List: Hernia Ms. Romero is a 37y/o female with history of an open appendectomy in 2010 an umbilical herni a repair. History of staph wound infection requiring incision and drainage and recurrent yuriy tral hernia. She was transferred from [place] for surgical evaluation of possible incarcer ated [...] and was passing flatus. POD 2 the kilgore was removed. Advancement of her diet was slow and she was placed on clear liquids POD 3 an d was found to have a UTI and was placed on seven days of Cipro. POD 5 she was discharged ho tn, tolerating a diabetic diet. Having bowel function. [...] yuriy tral hernia. She was transferred from [place] for surgical evaluation of possible incarcer ated [...] and was passing flatus. POD 2 the kilgore was removed. Advancement of her diet was slow and she was placed on clear liquids POD 3 an d was found to have a UTI and was placed on seven days of Cipro. POD 5 she was discharged ho tn, tolerating a diabetic diet. Having bowel function. [...] keeping you from eating and drinking, Call [phone]. It is important to stay hydrated! If [...] taking narcotic that contain Tylenol (acetaminophen) Example: Mcconnell, Lortab, Vicodin, hydrocodone/APAP, Percocet, Tylenol #3 PAIN MEDICATIONS are ONLY REFILLED during CLINIC APPOINTMENTS. Please call [phone] to schedule an appointment. Your Follow-Up Plan Follow up with ROBIN MEJIA in 2 weeks. Contact information: [address] [facility] [address] Vitals on discharge: Ht 154.9 cm (5' 0.98")( < 3 %ile), Wt 180.94 kg (398 lbs 14.4 oz)( < 3 %ile), BP 142/74, Pulse 94, Temperature 36.4 C (97.5 F), RR 16, SpO2 95%, BMI 75.41 kg/ (m^2). Outstanding labs/studies: None Discharging Physician: AMINTA WILSON MD Attending Physician: Andie Chun MD documented in this enc ounter Medications [...] as of this encounter Progress Notes Kaleb Wing NP - 11/12/2012 6:13 AM PDTFormatting of this note might be different f rom the original. [facility] DEPARTMENT OF SURGERY EMERGENCY GENERAL SURGERY Division of Trauma and Critical Care Attending Physician: Andie Chun MD Progress Note Note Date: 11/12/2012 Admission [...] removed in clinic - [place] [phone] [address]ager number [phone] [place] [phone] Aminta Goodwin Md - 11/11/2012 7:40 AM PDT [facility] DEPARTMENT OF SURGERY EMERGENCY GENERAL SURGERY Division of Trauma and Critical Care Attending Physician: Andie Chun MD Progress Note Note Date: 11/11/2012 Admission Date: 11/06/2012 DYLAN ROMERO, [id number] Hospital Day #5 INTERVAL EVENTS none acute [...] mg, Rectal, DAILY PRN, Aminta Wilson MD vkopoosnyk-lagsgtzfkqmkz-ickaxbsw (aka FIORICET) 50-325-40 mg 1 Tab, 1 Tab, Oral, Q4H PRN, Kaleb Wing NP, 1 Tab at 11/10/12801 ciprofloxacin (aka CIPRO) tablet 500 mg, 500 mg, Oral, BID, Aminta Wilson MD, 500 mg at 11/11/12802 dextrose IV 25 mL, 25 mL, Intravenous, PRN, Danny Liu MD enoxaparin (aka LOVENOX) injection 30 mg, [...] 1 mg, 1 mg, Intramuscular, PRN, Danny Liu MD glucose chewable tablet 16 g, 16 g, Oral, Q15MIN PRN, Danny Liu MD heparin 10 unit/mL IV flush syringe 50 Units, 50 Units, Intravenous, PRN, Aminta Wilson MD insulin lispro (aka HUMALOG) injection, , Subcutaneous, MEALS and HS, Kaleb Wing, KALYAN ketorolac (aka TORADOL) injection 30 mg, 30 mg, Intravenous, Q6H PRN, Dione Nickerson MD, 30 mg at 11/08/12 1024 lactobacillus [...] mg, 5 mg, Intravenous, Q4H PRN, Dione Nickerson MD, 5 mg at 11/10/12 0804 naloxone (aka NARCAN) injection, , Intravenous, PRN, Aracely Flores, nystatin (aka MYCOSTATIN) powder, , Topical, BID, Danny Liu MD olanzapine (aka ZYPREXA) tablet 30 mg, 30 mg, Oral, HS, Onur Allen MD, 30 mg at 10/25 02/05 2140 ondansetron (aka ZOFRAN) injection 4 mg, 4 mg, Intravenous, Q12H PRN, Danny Liu MD, 4 mg at 11/06/12 2020 oxyCODONE (immediate release) (aka ROXICODONE) tablet 15-30 [...] ound clean without signs of infection : Kilgore out, patient voiding without difficulty Extremities:Warm and [...] PDT EGS PROGRESS NOTE: Attending Physician: Andie Chun MD 11/10/2012 SUBJECTIVE: Reports she is sore, ambulating around room and in the jamison, no n/v, passing flatus, MEDICATIONS: Current facility-administered medications:ALPRAZolam (aka XANAX) tablet 1 mg, 1 mg, Oral, T ID, Jayne Ponce MD, 1 mg at 11/10/12801 lpiyquzwsz-ixgcdloynfmtl-wqixowxp (aka FIORICET) 50-325-40 mg 1 Tab, 1 Tab, Oral, Q4H PRN, Kaleb Wing NP, 1 Tab at 11/10/12801 ciprofloxacin (aka CIPRO) tablet 500 mg, 500 mg, Oral, BID, Aminta Wilson MD, 500 mg at 11/10/12801 dextrose IV 25 mL, 25 mL, Intravenous, PRN, Danny Liu MD enoxaparin (aka LOVENOX) injection 30 mg, 30 mg, Subcutaneous, Q12H (Scheduled), Aracely zhu DO, 30 mg at 11/10/12802 famotidine in NS (aka PEPCID) IV 20 mg, 20 mg, Intravenous, Q12H (Scheduled), Danny solis MD, Last Rate: 200 mL/hr at 04/17/13 0803, 20 mg at 11/10/12 0803 FLUoxetine (aka PROZAC) capsule 40 mg, 40 mg, Oral, DAILY, Onur Allen MD, 40 mg at 0 11/10/12 0802 glucagon (aka GLUCAGEN) injection 1 mg, 1 mg, Intramuscular, PRN, Danny Liu MD glucose chewable tablet 16 g, 16 g, Oral, Q15MIN PRN, Danny Liu MD heparin 10 unit/mL IV flush syringe 50 Units, 50 Units, Intravenous, PRN, Aminta Wilson MD HYDROmorphone 25 mg in preservative free NaCl 0.9% 50 mL POWER DRIVEN BRUSH MAKER infusion, , Intravenous, KIESHA NUOUS, Aracely Ferronato, DO, 0.1 mg at 11/10/12 0748 insulin lispro (aka HUMALOG) injection, , Subcutaneous, MEALS and HS, Kaleb Wing, SOLUTION DESIGN ENGINEER ketorolac (aka TORADOL) injection 30 mg, 30 mg, Intravenous, Q6H PRN, Dione Nickerson MD, 30 mg at 11/08/12 1024 lactated ringers IV, 125 mL/hr, Intravenous, CONTINUOUS, Aracely Cruzo, DO, Last Rate: 1 25 mL/hr at [...] mg, 5 mg, Intravenous, Q4H PRN, Dione Nickerson MD, 5 mg at 11/10/12 0804 naloxone (aka NARCAN) injection, , Intravenous, PRN, Aracely Ferronato, DO nystatin (aka MYCOSTATIN) powder, , Topical, BID, Danny Liu MD olanzapine (aka ZYPREXA) tablet 30 mg, 30 mg, Oral, HS, Onur Allen MD, 30 mg at 10/25 ondansetron (aka ZOFRAN) injection 4 mg, 4 mg, Intravenous, Q12H PRN, Danny Liu MD, 4 mg at 11/06/122019 promethazine (aka PHENERGAN) injection 12.5 mg, 12.5 [...] diet -add bowel regimen Acute pain -HM POWER DRIVEN BRUSH MAKER, tylenol -convert to oral pain medication once [...] Fluids: LR 125ml/hr Feeding: NPO Analgesia: Dilaudid POWER DRIVEN BRUSH MAKER Sedation: not indicated Thromboprophylaxis: enoxaparin Head of bed: > 30 Ulcer prophylaxis: pepcid Glycemic control: adequate Activity/PT/OT: Ongoing Yogurt: ABX on Probiotics:yes AMINTA WILSON MD General Surgery, R1 Aminta Goodwin Md - 11/09/2012 9:17 AM PDT EGS PROGRESS NOTE: Attending Physician: Andie Chun MD 11/09/2012 SUBJECTIVE: Reports she is sore [...] Ponce MD, 1 mg at 11/09/12 0855 qucdykwlzu-aabhzmvbahxgx-hkxfwzkr (aka FIORICET) 50-325-40 mg 1 Tab, 1 Tab, Oral, Q4H PRN, Kaleb Wing NP, 1 Tab at 11/09/12 0443 dextrose IV 25 mL, 25 mL, Intravenous, PRN, Danny Liu MD enoxaparin (aka LOVENOX) injection 30 mg, 30 mg, Subcutaneous, Q12H (Scheduled), Aracely zhu, DO, 30 mg at 11/09/12 0857 famotidine [...] 1 mg, 1 mg, Intramuscular, PRN, Danny Liu MD glucose chewable tablet 16 g, 16 g, Oral, Q15MIN PRN, Danny Liu MD HYDROmorphone 25 mg in preservative free NaCl 0.9% 50 mL POWER DRIVEN BRUSH MAKER infusion, , Intravenous, KIESHA NUOUS, Aracely Flores DO, 0.3 mg at 11/09/12 0853 insulin lispro (aka HUMALOG) injection, , Subcutaneous, MEALS and HS, Kaleb Wing NP ketorolac (aka TORADOL) injection 30 mg, 30 mg, Intravenous, Q6H PRN, Dione Nickerson MD, 30 mg at 11/08/12 1024 lactated [...] mg, 5 mg, Intravenous, Q4H PRN, Dione Nickerson MD, 5 mg at 11/09/12 0443 naloxone (aka NARCAN) injection, , Intravenous, PRN, Aracely Flores DO nystatin (aka MYCOSTATIN) powder, , Topical, BID, Danny Liu MD olanzapine (aka ZYPREXA) tablet 30 mg, 30 mg, Oral, HS, Onur Allen MD, 30 mg at 10/25 ondansetron (aka ZOFRAN) injection 4 mg, 4 mg, Intravenous, Q12H PRN, Danny Liu MD, 4 mg at 11/06/12 2020 potassium [...] drainage <30ml for 24hrs Acute pain -HM POWER DRIVEN BRUSH MAKER, tylenol Diabetes: -insulin gtt not started due [...] Fluids: LR 125ml/hr Feeding: NPO Analgesia: Dilaudid POWER DRIVEN BRUSH MAKER Sedation: not indicated Thromboprophylaxis: enoxaparin Head of bed: > 30 Ulcer prophylaxis: pepcid Glycemic control: adequate Activity/PT/OT: Ongoing Yogurt: ABX on Probiotics:yes AMINTA WILSON MD General Surgery, R1 MarioKokoChari Michaud P - 11/08/2012 8:49 AM PDT [facility] DEPARTMENT OF SURGERY EMERGENCY GENERAL SURGERY Division of Trauma and Critical Care Attending Physician: Andie Chun MD Progress Note Note Date: 11/08/2012 Admission Date: 11/06/2012 DYLAN ROMERO, [id number] Hospital Day #2 INTERVAL EVENTS NO SUBJECTIVE Pain well controlled; has headache attributed to dilaudid POWER DRIVEN BRUSH MAKER Tylenol did not help. Flatus: YES Tolerating [...] Girma e RLQ with seroang fluid. : Kilgore catheter in place and good urine output [...] coughing PRN. -NG clamping trials today. -DC kilgore Acute pain -HM POWER DRIVEN BRUSH MAKER, tylenol Diabetes: -insulin gtt not started due [...] Fluids: LR 125ml/hr Feeding: NPO Analgesia: Dilaudid POWER DRIVEN BRUSH MAKER Sedation: not indicated Thromboprophylaxis: enoxaparin Head of bed: > 30 Ulcer prophylaxis: pepcid Glycemic control: adequate Activity/PT/OT: Ongoing Yogurt: ABX on Probiotics: No KALEB WING NP [facility] [place] [id number] Kelvin Lobato MD - 11/07/2012 9:51 PM PDT Trauma / Surgical Critical Care Service - Progress Note Name: DYLAN ROMERO Date: 11/07/2012 Time: 9:52 PM Author: DIONE NICKERSON MD HPI: 37 y.o. y/o female admitted [...] appropriately tender, nondistended. Incision dressed, clean. : kilgore catheter in place, urine clear, yellow. Extremities: mild edema. Recent Labs Chemistries Recent Labs Basename 11/07/12 1825 11/07/12 0030 11/06/12 1550 11/06/12 0628 NA -- 143 142 142 K -- 3.7 3.0* 3.6 CL -- 109* 108 107 BICARB -- 27 25 26 BUN -- 13 CR -- 0.62 0.67 0.66 GLU 82 [...] 7.33* PCO2 49* PO2 113* HCO3 25 [id number] 26 Z3RTTWLP 98.3* O5YSXZYXP -- FIO2 60 ABGEXCESS -0.9 Assessment, Medical Decision Making and Plan 1. Incarcerated hernia, now s/p repair and panniculectomy -Binder, pain control, minimize nausea and coughing PRN. -NG clamping trials today. 2. Acute pain -HM POWER DRIVEN BRUSH MAKER, tylenol 3. Diabetes: -insulin gtt 4. Morbid obesity -Monitor need for CPAP at night and resp status closely. -Maintain kilgore; DC betsy. 5. Migraines -Nubain, toradol, and [...] Disposition: ICU level of care. Signed: Dione Nickerson MD R-2, General Surgery Pager: [phone] [facility] [place] Department of Surgery Trauma ICU Team Pager (24hrs/day): [phone] I was present with the resident during the history and exam. I discussed the case with the resident and agree with the findings and plan as documented in the resident s note. KELVIN SPENCE MD [facility] [address] [place] [address] [id number] Onur Graves MD - 11/07/2012 2:37 AM [...] mg 325-650 mg Oral Q4H PRN Danny Liu MD Or acetaminophen (aka TYLENOL) oral suspension 325-650 mg 325-650 mg Feeding Tube Q4H PRN Danny Liu MD 650 mg at 11/06/12 2353 Or acetaminophen (aka TYLENOL) suppository 325-650 mg 325-650 mg Rectal Q4H PRN Danny Yu MD albuterol 0.083% (aka PROVENTIL,VENTOLIN) 2.5 mg /3 mL (0.083 %) nebulizer solution 2.5 mg 2.5 mg Inhalation Q4H PRN Danny Liu MD artificial tears (hypromellose) (aka NATURES TEARS) 0.4 % ophthalmic drops [address] Both Eyes PRN Danny Liu MD chlorhexidine (aka PERIDEX) mouthwash 15 mL 15 mL Oral Q6H Danny Liu MD 15 mL at 11/06/12 2030 dexmedetomidine 400 mcg in NaCl 0.9 % IV infusion 0.3-0.7 mcg/kg/hr (Dosing Weight) In travenous CONTINUOUS Nguyen Canseco PA-C 0.2 mcg/kg/hr at 11/06/12 2300 dextrose IV 25 mL 25 mL Intravenous PRN Danny Liu MD famotidine in NS (aka PEPCID) IV 20 mg 20 mg Intravenous Q12H (Scheduled) Danny silva MD 200 mL/hr at 11/06/122011 20 mg at 11/06/122011 fentaNYL citrate (PF) (aka SUBLIMAZE) injection 25-100 mcg 25-100 mcg Intravenous Q1H PRN Danny Liu MD 50 mcg at 11/06/122051 FLUoxetine (aka PROZAC) capsule 40 mg 40 mg Oral DAILY Onur Allen MD 40 mg at 11/06/12 0758 glucagon (aka GLUCAGEN) injection 1 mg 1 mg Intramuscular PRN Danny Liu MD glucose chewable tablet 16 g 16 g Oral Q15MIN PRN Danny Liu MD HYDROmorphone 25 mg in preservative free NaCl 0.9% 50 mL POWER DRIVEN BRUSH MAKER infusion Intravenous CON TINUOUS Aracely Flores DO 0.2 mg at 11/06/12 2200 insulin regular in NaCl 0.9% IV infusion 250 units/250 mL (1 unit/mL) 0.1-50 Units/hr Intravenous CONTINUOUS Danny Liu MD lactated ringers IV 100 mL/hr Intravenous CONTINUOUS Danny Liu MD 100 mL/hr at 0 11/07/12 0200 100 mL/hr at 11/07/12 0200 LORazepam (aka ATIVAN) injection 1-4 mg 1-4 mg Intravenous Q1H PRN Danny Liu MD 2 mg at 11/06/12 1548 mupirocin (aka BACTROBAN) 2 % ointment Nasal BID Danny Liu MD naloxone (aka NARCAN) injection Intravenous PRN Aracely Flores DO nystatin (aka MYCOSTATIN) powder Topical BID Danny Liu MD olanzapine (aka ZYPREXA) tablet 30 mg 30 mg Oral HS Onur Allen MD 30 mg at 2353 ondansetron (aka ZOFRAN) injection 4 mg 4 mg Intravenous Q12H PRN Danny Liu MD 4 mg at 11/06/122019 potassium chloride IV 20 mEq 20 mEq Intravenous PRN Danny Liu MD 20 mEq at 0159 propofol (aka DIPRIVAN) injection 0.5-60 mcg/kg/min (Dosing Weight) Intravenous CONTIN UOUS Danny Liu MD 30 mcg/kg/min at 11/06/12 1930 traZODone (aka DESYREL) tablet 150 mg 150 mg Oral HS Onur Allen MD 150 mg at 11/06/12 7736 Assessment & Plan: Dylan Romero is a 37 y.o. Morbidly obese female who presented with an incarcerated vent ral hernia who is now POD#1 s/p primary repair. 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 and prn tylenol, continue prozac and zyprexa for chronic depre ssion, continue prn ativan as on prn benzos at home Resp: continue pulmonary toilet, O2 prn CV: continue fluid resuscitation, getting bolused this AM for low UOP FEN/GI: replete electrolytes, NPO for now, probable remove NGT today Renal/: continue kilgore for strict in and out, fluid resuscitation Endo: insulin gtt Heme/ID: crit with appropriate drop post-operatively, no indication for antibiotics at this time Wound care: dressing to stay in place until POD#2, DIAMOND to bulb suction Dispo: probable transfer to [facility] today F: probable remain NPO today A: dilaudid shingle shearing machine operator, prn tylenol S: prn benzos as she is at home T: will start prophylactic lovenox today H: HOB >30 degrees U: pepcid G: insulin gtt ONUR ALLEN MD, PGY3 [facility] [id number] [place] [address] Onelia Shrestha MD - 11/06/2012 8:41 AM PDT [facility] DEPARTMENT OF SURGERY Division of Trauma and Critical Care Emergency General Surgery / Acute Care Surgery Attending Physician: Andie Chun MD Note Date: 11/06/2012 Admission Date: 11/06/2012 DYLAN ROMERO, [id number] Hospital Day #0 OVERNIGHT EVENTS: anxious SUBJECTIVE: [...] wwp LABS: reviewed and are available in [facility] (if new data) IMAGING: VASCULAR: IMPRESSION: Dylan Shereen [place] is a 37 y.o. Female with multiple co-morbidities, who was admitted on 11/06 for a larger strangulated ventral hernia. Plan for OR this morning for ventral hernia repair. Ventral Hernia - strangulated. Plan for OR today - NPO - IVF - pain medication as needed - Consent obtained ONELIA DE JESUS MD General Surgery, R1 documented in this enc ounter H&P Notes Andie Chun MD - 11/05/2012 10:24 PM PDTSurgery Attending Note: I saw and examined the patient and agree that she has an incarcerated and likely strangulat ed hernia in an old appendectomy incision. She needs urgent surgery. She also has been vom iting and takes diuretics, so is likely dehydrated and needs fluid resuscitation. ANDIE CHUN MD [facility] [address] [facility] [place] [address] emarcus Christopher MD - 0 11/05/2012 10:24 PM PDT EMERGENCY GENERAL SURGERY ADMISSION HISTORY AND PHYSICAL Admission Date: 11/05/2012 Author: Demarcus Christopher MD Admitting Attending: Andie Chun MD CC: hernia HPI: Dylan Romero is a 37 y.o. Morbidly obese female (BMI 81) with a history of an open appe ndectomy in 2010 and concomitant umbilical hernia repair (primarily closed with PDS). She de veloped a staph wound infection requiring 2 incision and drainages. She developed a recurren t ventral hernia. She now has recurrent wound infections, chronic pain and chronic nausea. S he also has a history of diverticulosis on a colonoscopy. She was recently seen by Dr. Levi Chun in clinic for consideration of hernia repair (about one month ago). At that time a CT scan was performed which did demonstrate a large hernia that extended into the pannus but was without evidence of incarceration. It was recommended that she undergo bariatric surger y at the same time as hernia repair due to the nearly 100% recurrence rate in someone of her size. She presents today as a transfer from [place] with concern for possible incarcerated marguerite ia. Her pain has been off and on over the last month in her mid abdomen where her hernia is but states that it became significantly more painful over the last day and has been steadily increasing in pain. She began vomiting yesterday and has vomited several times throughout hat was associated with a new abdominal bulge. Until today, she has had normal bowel function and has been passing flatus, although she has not had any bm or passage of flatus t donte. A CT scan was attempted at the outside hospital but was unsuccessful because once patient was on the CT bed the machine would not move. She received some PO contrast, that she vomited, but no IV contrast. Denies any fevers, shortness of breath, or chest pain. Labs at outside hospital: na139 k 3.7 cl102 co2 25 ag15.7 Bun 13 cr 0.75 Wbc14.4 hct 42.5 She presents today as a transfer from [place] with concern for possible incarcerated marguerite ia. PMH: Past Medical History Diagnosis Date Neck pain [...] over in adult Incisional hernia, incarcerated 2012 PSH: Past Surgical History Procedure Date Tonsillectomy and adenoidectomy Appendectomy, open 2010 Umbilical hernia repair 2010 Treatment of ankle fracture with screws remaining Incision and drainage of wound abscess x2 midline transverse wound s/p open appendectomy 2010 ROS: All other ROS negative except as stated in HPI. Prior to Admission Medications Cannot display prior to admission medications because the patient has not been admitted in this contact. ALLERGIES: Allergies Allergen Reactions Amoxicillin Benadrilina (Diphenhydramine Hcl) SH: History Social History Marital Status: Single Spouse [...] live in a duplex above her mother. FH: Family History Problem Relation Alcohol/Drug Alcoholism in mother & father Hypertension M&F Asthma Father, brother, daughters Lung Disease Father Obesity M&F Diabetes Mother Arthritis M&F Physical Exam: Last Vitals: There were no vitals taken for this visit. Gen: Alert, oriented, NAD, morbidly obese Cardiovascular: RRR, normal s1 and s2 Respiratory: breathing comfortably on room air, clear to auscultation bilaterally Gastrointestinal: large panus, large bulge near mid abdomen that is extremely tender to pal pation, attempted reduction of hernia but limited by pain. No rebounding or peritoneal signs , non distended. Incision over anterior abdominal wall is healed, non erythematous. No overl jaiden skin changes. Groin panus-extensive bilateral groin rash under panus with foul smelling and mclaughlin exudate, excoriations bilaterally Extremities: moving all extremities, warm and well perfused LABS: No results found for this basename: wbc, hb, hct, plt, mcv, rdw Lab Results Component Value Date BUN 12 10/07/2012 CR 0.6 10/07/2012 No results found for this basename: inr, inrpt No results found for this basename: lipase IMAGING: IMPRESSION: 10/07/12 Midline inferior abdominal wall ventral hernia containing nonobstructed small and large bowel as discussed above. No acute abnormality. 6-mm right lower lobe nodule, statistically postinflammatory. Assessment and Recommendations: Dylan Romero is a 37 y.o. female with morbid obesity with a known midline inferior abdo stephany ventral hernia transferred to [facility] over concern for incarcerated hernia. The hernia w as non reducible, but was limited by pain on exam. Her hernia does appear incarcerated. 1. Admit to Surgery 2. NPO, NGT tube 3. MIVF with LR at 75ml/hr 4. Cbc, cmp, inr 5. Restart home medications 6. Incarcerated hernia -CT scan vs. OR today Demarcus Christopher MD, PGY1 [facility] [address] [place] [address] documented in this enc ounter Procedure Notes Danny Liu MD - 11/07/2012 9:07 AM PDTAssociated Order(s): REPAIR, VENTRAL HERNIA, I NCARCERATED, INITIALProcedure(s): REPAIR, VENTRAL HERNIA, INCARCERATED, INITIALPre-Procedure Diagnose(s): Incarcerated ventral herniaPost-Procedure Diagnose(s): Incarcerated ventral he rniaOperative Report Identifying Data: Dylan Romero [id number] Author: Danny Liu MD Date: 11/06/2012 Attending Surgeon and Service: Attending: Hernandez Chun MD Service: Emergency General Surgery Date of Procedure: 11/06/2012 Preoperative Diagnosis: Incarcerated Ventral Hernia Postoperative Diagnosis: Same Procedure Performed: 1) Exploratory laparotomy 2) Excision of excess skin and chronic wound infection 3) Primary ventral hernia repair 4) 19Fr Round Vanessa Drain 5) Staple skin closure Primary Surgeon: Hernandez Chun MD Addiction Social Worker Surgeons: MD Danny Kovacs MD Type of Anesthesia Used: General Estimated Blood Loss (EBL): 100ml Fluid and Blood Products Administered During the Operation: 1800 mL crystalloid No transfusion products Specimens: 2.9 pound excess soft tissue with chronic wound infection None sent to pathology Drains and Tubes Placed: 19Fr Round Vanessa Drain RUQ Complications: None apparent. Consultations Intraoperatively: None Indications for Surgery: Dylan Romero is a 37 y.o. Morbidly obese (BMI 80) female who presented with abdominal p ain and a non-reducible bulge in her midline. There were no overlying skin changes and she was clinically stable. Due to significant risk for incarceration or strangulation of bowel, consent was obtained and she wished to proceed to operative correction. Findings: 5.0 x 5.0 cm midline defect in the fascia Large hernia sac containing small bowel and simple, non-purulent fluid Chronic adhesions to small bowel and within hernia sac Viable bowel with good capillary refill upon release from hernia sac Description of Operation: Dylan Romero was fully informed upon signing the operative consent. All risks, benefits and alternatives were disclosed. Questions were answered. The patient was then brought into the operative theater and placed supine. General anesthesia was induced uneventfully and the patient positioned appropriately for the surgery. The patient was then prepped and draped in a sterile manner. A surgical pause was then held confirming the procedure to be performed as well as necessary equipment and imaging. Appropriate surgical antibiotic prophy laxis was given 15 minutes prior to incision. A marking pen was used to define the total area of skin to be excised including a chronic r ight abdominal wound which failed to heal. The gage shape of the cookie included this chron ic wound and allowed for appropriate exposure of the underlying midline hernia. A #10 blade scalpel was then used to incise the skin and subcutaneous tissue.Hemostasis in the subcuta neous fat was provided with electrocautery and vessel ligation with suture. The hernia sac w as identified. Dissection in a circumferential manner allowed full exposure. The bowel withi n the sac remained incarcerated. The hernia sac was entered sharply with scissors at which time a simple peritoneal non-puru lent fluid was present and suctioned. Within the sac there was noted adhesions to small cassandra l. These appeared to be chronic in nature. The adhesions were taken down sharply. The bowel was then inspected fully. It had good coloration, good capillary refill and appeared viable. A small serosal tear was identified and repaired with two simple interrupted 3-0 silk sutur e. The excess soft tissue and roof of the hernia sac were then excised and weighed. 2.9 pounds of tissue was excised. The bowel was then reduced carefully into the abdominal cavity. Alic e clamps were used to provided tension the fascial edges of the defect. These were elevated and a hand was placed through the defect to feel for other adhesions. There were none. The d ecision was made to close the fascial defect primarily due to an increased recurrence rate r egardless of operation and the possibility of future bariatric surgeries. The fascia was michael sed with a running 1-0 looped Maxon suture. A 19Fr round vanessa drain was then selected, and a right upper quadrant percutaneous insertion of the drain into the incision was performed. The skin edges were re-approximated with numerous interrupted 3-0 Vicryl suture. Skin staple s completed the closure Surgical gloves were exchanged and wet and dry washing of the incision was performed. A eileen rile dressing was placed over the incision and the drain was placed to bulb suction. This concluded the procedure. All surgical counts were correct times two at the end of the operation. No intraoperative complications were encountered. Mrs Romero remained intubated at the end of the operation and was transferred to the ICU for close monitoring of anesthetic clearance and ventilatory support prior to extubation given her medical comorbidities. Dr. Chun was present and scrubbed for the entire procedure. DANNY LIU MD [id number] [place] [address] ERDanny Kelsey MD - 11/06/2012 2:07 PM PDTAssociated Order(s): EXPLORATORY LAPAROTOMY; REPAIR, VENTRAL HERNI A, INCARCERATED, RECURRENTProcedure(s): EXPLORATORY LAPAROTOMY; REPAIR, VENTRAL HERNIA, INCA RCERATED, RECURRENTPre-Procedure Diagnose(s): Incarcerated ventral herniaPost-Procedure Diag nose(s): Incarcerated ventral herniaINPATIENT BRIEF OPERATIVE NOTE Procedure Date: 11/06/12 Author: DANNY LIU MD Attending Physician: Maximiliano Chun MD Assistants: Yeimi Araujo (Chief), Padmini Liu At 1100, prior to the beginning of the procedure, the team paused to verify the patient s identity, the procedure to be performed (in accordance with the consent,) and the correct s javier/site. The patient was positioned appropriately. All relevant images and results were pro perly labeled and displayed. We addressed antibiotic prophylaxis and fluids for irrigation a s applicable to this patient. Any safety precautions were addressed. Preoperative Diagnosis: Incarcerated ventral hernia Postoperative Diagnosis: Same Procedure Performed: Exploratory laparotomy, excision of excess skin and chronic wound, [facility] ventral hernia repair, 19Fr Round Vanessa drain, Staple skin closure Estimated Blood Loss: 100 ml UOP: 250ml Fluids: 1800 ml crystaloid Specimens: 2.9 pound excess skin and chronic wound infection Complications: None appreciated Drains: 19Fr Round vanessa in RUQ Disposition: Intubated to 7A TICU Findings: Incarcerated small bowel contained within a large hernia sac. 5x5 cm defect in mi dline fascia. Bowel was viable upon inspection, pinked up immediate upon reduction and lysis of adhesions. Fascia closed with a 1-0 looped Maxon running suture. Fascia is closed. Poten tial space closed over a 19Fr round vanessa drain with interrupted 3-0 Vicryl suture and skin contreras. DANNY LIU MD [facility] [id number] [place] [address] documented in this encounter Consult Notes Raisa Landaverde MD - 11/06/2012 3:48 PM PDTI was present and rounded with the SOLUTION DESIGN ENGINEER today. I interviewed and examined the patient. I reviewed the history, as documented today. I agr ee with the SOLUTION DESIGN ENGINEER's assessment and plan. No evidence of bleeding. Will follow. Will wean to pre ssure support as tolerated. May need bronchoscopy. Critcal care time: 35 minutes RAISA LANDAVERDE MD [facility] [address] [place] [address] eeveNguyen PA-C - 11/06/2012 3:48 PM PDT SURGICAL ICU CONSULT Attending: Andie Chun MD Date: 11/06/2012 CC: ventral hernia repair. HPI: Dylan Romero is a 37 y.o. Morbid obese female (BMI 80) with a history of bipolar disord er, depression, sleep apnea, and diverticulosis who had an open appendectomy in 2010 with co ncomitant umbilical hernia repair. She then developed recurrent staph wound infection and ve ntral hernia. She was seen in the office regarding repair, but they were going to wait until she could undergo bariatric surgery at the same time. However, over the past day she developed acute abdominal pain, nausea and vomiting. They we re unable to obtain at an OSH due to her size. On admission, a CT reveled a large strangulat ed ventral hernia. She went to the OR today for repair. Today, Dylan Romero underwent Exploratory laparotomy, excision of excess skin and chron ic wound, primary ventral hernia repair, 19Fr Round Vanessa drain, Staple skin closure. Intraop findings included Incarcerated small bowel contained within a large hernia sac. 5x5 cm defect in midline fascia. Bowel was viable upon inspection, pinked up immediate upon red uction and lysis of adhesions. EBL 100 ml, received 1800 ml crystalloid, 0 u PRBC's, 250 ml UOP. PAST MEDICAL HISTORY: Past Medical History Diagnosis [...] midline transverse wound s/p open appendectomy 2010 HOME MEDICATIONS: Prior to Admission Medications Medication ALPRAZolam XR 3 mg Oral tablet extended release 24 hr Take 3 mg by mouth once daily in the morning. ascorbic acid (VITAMIN C) 500 mg Oral tablet Take 500 mg by mouth once daily. ASPIRIN/ACETAMINOPHEN/JARON CARB (EXCEDRIN BACK & BODY ORAL) Take by mouth four times daily as needed. clindamycin 300 mg Oral capsule Take 2 Caps by mouth every eight hours. ferrous sulfate 325 mg (65 mg iron) [...] Take 30 mg by mouth once daily. piroxicam 20 mg Oral capsule Take 20 mg by mouth once daily. VIT/IRON FUMARATE/FA ( PLUS ORAL) Take by mouth. ranitidine 300 mg Oral tablet Take 300 mg by mouth once daily at bedtime. TORSEMIDE ORAL Take 40 mg by mouth two times daily. traZODone 150 mg Oral tablet Take 150 mg by mouth once daily at bedtime. ALLERGIES: Allergies Allergen Reactions Amoxicillin Benadrilina (Diphenhydramine [...] Diabetes Mother Arthritis M&F REVIEW OF SYSTEMS: ROS as per HPI, pt intubated and sedated. PHYSICAL EXAM: Vital signs: Ht 154.9 cm (5' 0.98")( < 3 %ile), Wt 183.253 kg (404 lbs)( < 3 %ile), BP 136/ 61, Pulse 85, Temperature 36.9 C (98.4 F), RR 22, SpO2 99%, BMI 76.38 kg/(m^2). General: Intubated and sedated. Chest: ETT in place, CTA bilaterally CV: RRR, no m/r/g Gastrointestinal: soft, obese, nondistended, dressing clean dry and intact Extremities: cap refill 2 sec, WWP Neuro: PERRL, withdraws to pain Lines: Right IJ, DIAMOND, art, kilgore Vent: SIMV TV 400, PEEP 8, PS 10, rate 14, FiO2 60 LABS: Chemistries Recent Labs Basename 11/06/12 1023 11/06/12 0628 NA -- 142 K -- 3.6 CL -- 107 BICARB -- 26 BUN -- 13 CR -- 0.66 GLU 116* 135*|133* CA -- 9.4 MG -- 1.7* PO4 -- 3.2 AST -- 25 ALT -- 25 AP -- 75 TBILI -- 0.5 ALB -- 3.4* No results found for this basename: ph, pco2, po2, hco3, O2sat, FIO2 Lab Results Component Value Date URINECOLOR Darlin 11/06/2012 URINELE Negative 11/06/2012 URINENITRITE Negative 11/06/2012 URINEUROBILI <2.0 11/06/2012 URINEPROTEIN 100.0* 11/06/2012 URINEPH 5.0 11/06/2012 URINEBLOOD Large* 11/06/2012 URINEKETONES 20.0* 11/06/2012 URINEBILI Negative 11/06/2012 URINEGLUCOSE Negative 11/06/2012 Lab Results Component Value Date URINEAMPPHOS None 11/06/2012 URINEBACTERI None 11/06/2012 URINECAOX None 11/06/2012 URINECAST 0 11/06/2012 URINEGRANCAS 0 11/06/2012 URINEHYALINE 0 11/06/2012 URINEMUCOUS Few* 11/06/2012 URINEEPITH None 11/06/2012 URINEREDCELL 62* 11/06/2012 URINESQEPI Few* 11/06/2012 URINEPO4 None 11/06/2012 URINEWBC 4 11/06/2012 URINEYEAST None 11/06/2012 CBC with diff Recent Labs Basename 11/06/12 0628 WBC 13.3* HB 12.3 HCT 38.4 PLT 320 NEUTROPERC 79* BANDPCT -- LYMPHPERC 14* MONOPERC 6 BASOPERC 0 EOSPERC 0* Coag No components found with this basename: inr, ptt, pt CBG's Recent Labs Basename 11/06/12 1023 11/06/12 0628 GLU 116* 135*|133* Cultures none IMAGING: CXR: ETT and IJ in place. Opacity in right upper lobe. Repeat CXR now, as pt rotated. ASSESSMENT AND PLAN: Dylan Romero is a 37 y.o. obese female with depression, bipolar d/ o, and sleep apnea who is now s/p strangulated ventral hernia repair. 1) ventral hernia repair: DIAMOND drain in place. Monitor drain output. Send post op CBC, and ch emistry. Monitor for signs of bleeding. 2) Resp failure: Follow up blood gas, titrate vent as needed. Plan to wake her up and wean to PS with goal of extubation. CXR show large mucus plug or atelectasis in RUL. We will try to wake her up, cough and suction. Consider possible bronch if unable to wean vent toward ex tubation. 3) Post op pain/sedation: Start fentanyl gtt for pain. She has a history of anxiety for whi ch she takes alazopram and trazadone. We would like to avoid ativan at this time in order to aid extubation. We will start precedex to aid sedation, anxiety and extubation. She can con tinue her home anxiety meds after extubation. 4) diabetes/hyperglycemia: start insulin gtt. 5) Asthma: Albuterol q4h prn for wheeze. 6) Depression: continue prozac after extubation. F: NPO A: fentanyl S: precedex T: SCD's H: HOB > 30 U: pepcid G: insulin gtt I provided 35 min critical care exclusive of time documented by the attending physician. NGUYEN CANSECO PA-C [facility] [id number] [place] [address] documented in this en counter Miscellaneous Notes Scan - Other, Faculty - 11/18/2012 10:14 AM PDTElectronically signed by Faculty Other at 10:14 AM PDTScan - Other, Faculty - 11/18/2012 10:14 AM PDT can - Other, Faculty - 11/18/2012 10:14 AM PDTElec tronically signed by Faculty Other at 11/18/2012 10:14 AM PDTScan - Other, Faculty - 013 10:14 AM PDT can - Othe r, Faculty - 11/18/2012 10:14 AM PDT 10: 14 AM PDTScan - Other, Faculty - 11/18/2012 10:14 AM PDT can - Other, Faculty - 11/18/2012 9:47 AM PDTElectronically s igned by Faculty Other at 11/18/2012 9:47 AM PDTEvaluation - Gaye Rendon - 11/12/2012 3 :06 PM PDTPt discharged after receiving discharge instructions and verbalizing understanding of instructions. Pt left with all belongings and prescriptions with family members to home . vkaylah RendonVita chari - 11/12/2012 2:06 PM PDTProblem: Pain, Acute (Adult, Obstetrics) Goal: Identify Signs and Symptoms and Related Risk Factors Goals: Patient skin integrity will remain intact during shift. Patient will verbalize pain at tolerable level per patient during shift. Patient will verbalize and demonstrate stripping and emptying drainage from DIAMOND drain before discharge. Interventions: Keep linens and gown clean and dry, apply barriers and powders as needed. Monitor pain and medicate as needed. Request pt teachback x2. Interventions that worked/didn't work:All interventions successful My recommendations forward:none Patient Stability:Moderately Stable lan of Kevon Rendon Dominic joanne - 11/12/2012 2:06 PM PDTProblem: Pain, Acute (Adult, Obstetrics) Goal: Identify Signs and Symptoms and Related Risk Factors Goals: Patient skin integrity will remain intact during shift. Patient will verbalize pain at tolerable level per patient during shift. Patient will verbalize and demonstrate stripping and emptying drainage from DIAMOND drain before discharge. Interventions: Keep linens and gown clean and dry, apply barriers and powders as needed. Monitor pain and medicate as needed. Request pt teachback x2. lan of Luz Maria Whitman RN - 11/12/2012 11:34 AM PDTProblem: Case Management Goals Goal: Discharge Needs Met Outcome: Goal met Date Met: 11/12/12 Pt to discharge today per the team. Sister will be driving pt to her home in [place]. No needs from at this time. Luz Maria Briggs RN Trauma Case Management Miladis Champion RN - 11/12/2012 6:36 AM PDTProblem: Infection, Risk/Actual (Adult, Obstetrics) Goal: Infection, Risk/Actual: Infection Prevention/Resolution/Control Goals: 1. Patient will remain free of falls during shift 2. Patient will state pain </= 3/10 during shift. 3. Patient will walk x 2 this shift 4. Patient skin will remain intact during shift. 5. Patient will have no nausea/vomiting during shift. Interventions: 1. Hourly rounding. Keep room free of clutter and debris. Keep IV tubing secured. Utilize b ed alarm if patient non-compliant. Ensure the use of non-skid socks on when out of bed. Call light within reach. Educate patient and family on fall prevention. 2. Assess pain Q3-4 hours. Treat with appropriate pain medication (scheduled and PRN). Titr ate pain medication as necessary and able. Notify team if pain not controled. Encourage deep breathing, distraction and change of position as alternative methods of pain reduction. Edu savana patient and family on pain and treatment. Offer oxycodone for pain relief. Encourage Pu lmonary hygiene activities. 4. Encourage pt to walk the halls this am Educate on importance of ambulation. Schedule am bulation times around peak pain medication times. Use white board to track ambulation and mo bility progress. 5. Assess skin [id number] and PRN. Educate on prevention of skin breakdown. Elevate heels and other pressure points. Ask MD to order nystatin powder for application underneath pannus. 6. Assess n/v [id number] and PRN. Treat with PRN and/or scheduled anti-emetics. Educate on alt ernative techniques for nausea management (i.e. Side lying, distraction, deep breathing). Interventions that worked/didn't work:PO oxycodone effective for pain relief. Walked the rodrigues llways x2, BM x1 post suppository. Needs more DIAMOND drain care and teaching prior to discharge. Please pull IJ if not needed anymore for replacements. My recommendations forward:See above Patient Stability:Moderately Stable lan of Kevon - Jodie Braga RN - 11/12/2012 6:36 AM PDTProblem: Infection, Risk/Actual (Adult, Obstetrics) Goal: Infection, Risk/Actual: Infection Prevention/Resolution/Control Goals: 1. Patient will remain free of falls during shift 2. Patient will state pain </= 3/10 during shift. 3. Patient will walk x 2 this shift 4. Patient skin will remain intact during shift. 5. Patient will have no nausea/vomiting during shift. Interventions: 1. Hourly rounding. Keep room free of clutter and debris. Keep IV tubing secured. Utilize b ed alarm if patient non-compliant. Ensure the use of non-skid socks on when out of bed. Call light within reach. Educate patient and family on fall prevention. 2. Assess pain Q3-4 hours. Treat with appropriate pain medication (scheduled and PRN). Titr ate pain medication as necessary and able. Notify team if pain not controled. Encourage deep breathing, distraction and change of position as alternative methods of pain reduction. Edu savana patient and family on pain and treatment. Offer oxycodone for pain relief. Encourage Pu lmonary hygiene activities. 4. Encourage pt to walk the halls this am Educate on importance of ambulation. Schedule am bulation times around peak pain medication times. Use white board to track ambulation and mo bility progress. 5. Assess skin [id number] and PRN. Educate on prevention of skin breakdown. Elevate heels and other pressure points. Ask MD to order nystatin powder for application underneath pannus. 6. Assess n/v [id number] and PRN. Treat with PRN and/or scheduled anti-emetics. Educate on alt ernative techniques for nausea management (i.e. Side lying, distraction, deep breathing). andoff - Maria Luz, Claudia mujica RN - 11/12/2012 6:26 AM PDTPrimary focus of stay: 37 female admit from [facility] w/ pos sible incarcerated hernia, N/V, abdominal pain ( possible bariatric surgery too) 11/06 had a ventral hernia repair PmHx: HTN, Diabetes Type I, Lymphedema, TIA, bipolar, depression, anxiety, morbid obesity, open appendectomy in 2010 which resulted in multiple infection, diverticulitis. Pertinent physical findings: Vitals: WNL Respiratory status: O2 saturation 95-96 % on RA, clear in upper [place] but diminished in ba ses, IS at bedside, needs encouraging to use. Isolation Precautions: Standard precautions Access/fluids: Right IJ, dressing changed 11/11, will need to be taken out 11/11 ( hard poke that's why still in) KCL replaced last night. Diet/GI: ADA, Active BT, large pannus, transverse abdominal incision, DIAMOND x 1( needs more te aching of proper care) BM 11/11 post suppository. CBGs: ACHS : Good ouput Mobility: Up ad jelena Wounds/Drains: Bilateral groin rash under pannus, excoriations bilaterally and LLQ ( undern eath pannus wound ) cleansed and nystatin powder applied. Critical labs: Potassium and mag Critical meds: Po 30mg Oxycodone Q 3-4 hrs Orders to follow up on: DIAMOND teaching needed before discharge Last pain assessment/reassessment: 30mg oxycodone effective for pain. Psych/social issues: Anxious Last visit (i.e. Falls/Activity/Comfort/Environment/Toileting/Skin): ambulates in halls. Bariatric bed. Anticipated or pending procedures: most likely today pt will be discharged Discharge plan: probably today valuation - Veronique Solitario - 11/11/2012 6:41 PM PDTProblem: General Plan of Care (Adult) Intervention: NPEOC Acute Goals: 1. Pt pain will remain at an acceptable level or less than 5/10 2. Pt will have BM since no BM after surgery yet 3. Manage and prevent further complications during this stay including infections. Interventions: 1. Assess pain every 4 hours and prn, medicate as needed for pain and assess effectiveness, position for maximum comfort, try cognitive and physical interventions for pain. 2.Provide prn stool softner, assist ambulation more than TID this shift 3. Assist pt to take a shower( Dr Edgar to let her take a shower) and assess patient's vital signs; monitor for fever. Maintain strict hand hygiene and clean environment. Assess and mo nitor all wounds for purulent or malodorous drainage Interventions that worked/didn't work:Pain down to 4 with oxy 30 mg per pt, no BM yet, no a cute change in wound. My recommendations forward:as above Patient Stability:Moderately Unstable lan of Care - Veronique Solitario - 2012 10:23 AM PDTProblem: General Plan of Care (Adult) Intervention: NPEOC Acute Goals: 1. Pt pain will remain at an acceptable level or less than 5/10 2. Pt will have BM since no BM after surgery yet 3. Manage and prevent further complications during this stay including infections. Interventions: 1. Assess pain every 4 hours and prn, medicate as needed for pain and assess effectiveness, position for maximum comfort, try cognitive and physical interventions for pain. 2.Provide prn stool softner, assist ambulation more than TID this shift 3. Assist pt to take a shower( Dr Edgar to let her take a shower) and assess patient's vital signs; monitor for fever. Maintain strict hand hygiene and clean environment. Assess and mo nitor all wounds for purulent or malodorous drainage andoff - Kassi, Veronique - 3 10:19 AM PDTPrimary focus of stay: incarcerated bowel and ileus, hernia repair 11/06 PmHx: HTN, DM, bipolar, depression, anxiety, migraines Pertinent physical findings: Vitals: vitals stable. Desat to 89 % RA, 1 L O2 provided while sleeping, probably d/t too m uch sedative medications at night.. MD was informed last night, now on RA Respiratory status: RA, diminished in bases Isolation Precautions: none Access/fluids: RIJ -drsg changed 11/11( will change before shift change) , HL, Oral pain me d given q 3 hours 30 mg. Due at 1999 Diet/GI:, DM reg, passing gas, BM meds started(11/10), refused suppository CBGs: q6 : voids in BR, UTI Mobility: SBA, hats in BR. Only ambulated to BR Wounds/Drains: transverse abdominal incision intact with contreras, check totaler, DIAMOND drain x 1, needs frequent emptying, skin breakdown under pannus,wash, clean dry apply nystatin powder, Critical labs: Critical meds: Antibiotics started for UTI Orders to follow up on: IV Mg replacement Last pain assessment/reassessment: abd pain 5-7/10, Psych/social issues: can be anxious at times Last visit (i.e. Falls/Activity/Comfort/Environment/Toileting/Skin): resting in chair Anticipated or pending procedures: DC home tomorrow Discharge plan: TBD- DC 1-2 day when having BMs valuation - Bebo RN - 6:27 AM PDTProblem: Pain Chronic (Adult, Obstetrics) Goal: Identify Signs and Symptoms and Related Risk Factors Goals: 1. Patient's pain will adequately controlled at or below a 5/10 this shift and transitioni ng off POWER DRIVEN BRUSH MAKER 2. Patient will demonstrate adequate oxygenation and perfusion d/b spo2>90% on RA this kristin ft. Interventions: 1. Patient will be encouraged to ask for oral pain med and use POWER DRIVEN BRUSH MAKER sparingly. 2. Encourage patient to roll on side prior to getting out of bed (abdominal precaution) 3. Patient will practice IS exercises 10x per hour while awake 4. Assess pain and vital signs every 4 hours and reassess pain 1 hour after oral pain medi cation was given 5. Assess for sedation, respiration and respiration efforts every 2 hours, assess how much pain medication patient is using on POWER DRIVEN BRUSH MAKER 6. Administer migraine medication PRN for headache 7. Administer 1 L O2 when patient is sleeping 8. Evaluate patient's fluid balance and discuss with MD to DC her fluid since she is now t aking decent amount of liquid intake. Interventions that worked/didn't work:Patioent seems to be very comfortable but when woken up or when moving, she co pain 8/10. POWER DRIVEN BRUSH MAKER was not used since 99. MD did not want to DC LR yet, O2 sat mid 90s with 1L O2 on while sleeping, denies headache, O2 probably helps My recommendations forward:Continue with above interventions Patient Stability:Moderately Stable andoff - Bebo RN - 0 11/11/2012 2:17 AM PDTPrimary focus of stay: incarcerated bowel and ileus, hernia repair PmHx: HTN, DM, bipolar, depression, anxiety, migraines Pertinent physical findings: Vitals: vitals stable. Desat to 89 % RA, 1 L O2 provided while sleeping, probably d/t too m uch sedative medications at night.. MD was informed last night, no calls back Respiratory status: RA, diminished in bases Isolation Precautions: none Access/fluids: RIJ -drsg changed 11/08 , LR @ 125, POWER DRIVEN BRUSH MAKER 0.1 q 8. Oral pain med given q 3 hour s 10 to 15 mg. Please try to wean off POWER DRIVEN BRUSH MAKER Diet/GI:, CL, passing gas, BM meds started(11/10) CBGs: q6 : voids in BR, UTI Mobility: SBA, hats in BR. Only ambulated to BR tonight Wounds/Drains: transverse abdominal incision intact with contreras, check totaler, DIAMOND drain x 1, needs frequent emptying, skin breakdown under pannus,wash, clean dry apply nystatin powder Critical labs: Critical meds: Antibiotics started for UTI Orders to follow up on: IV Mg replacement Last pain assessment/reassessment: abd pain 5-7/10, total 15mg oxygiven in 1.5 hours, POWER DRIVEN BRUSH MAKER used minimally, turned off at around 4 am. Encouraged not to use. 0600 sleeping soundly Psych/social issues: can be anxious at times Last visit (i.e. Falls/Activity/Comfort/Environment/Toileting/Skin): 0600 resting comfortab ly Anticipated or pending procedures: possible future OR? Discharge plan: TBD- DC 1-2 day when having BMs lan of Care - Bebo Albert R N - 11/11/2012 2:09 AM PDTProblem: Pain Chronic (Adult, Obstetrics) Goal: Identify Signs and Symptoms and Related Risk Factors Goals: 1. Patient's pain will adequately controlled at or below a 5/10 this shift and transitioni ng off POWER DRIVEN BRUSH MAKER 2. Patient will demonstrate adequate oxygenation and perfusion d/b spo2>90% on RA this kristin ft. Interventions: 1. Patient will be encouraged to ask for oral pain med and use POWER DRIVEN BRUSH MAKER sparingly. 2. Encourage patient to roll on side prior to getting out of bed (abdominal precaution) 3. Patient will practice IS exercises 10x per hour while awake 4. Assess pain and vital signs every 4 hours and reassess pain 1 hour after oral pain medi cation was given 5. Assess for sedation, respiration and respiration efforts every 2 hours, assess how much pain medication patient is using on POWER DRIVEN BRUSH MAKER 6. Administer migraine medication PRN for headache 7. Administer 1 L O2 when patient is sleeping 8. Evaluate patient's fluid balance and discuss with MD to DC her fluid since she is now t aking decent amount of liquid intake. andoff Veronique Michaud - 10/25 6:30 PM PDTPrimary focus of stay: incarcerated bowel and ileus, hernia repair 11/06 PmHx: HTN, DM, bipolar, depression, anxiety, migraines Pertinent physical findings: Vitals: vitals stable, but tachy at times. Desat to 87 and 89 % RA, 1 L O2 provided. pag ed Respiratory status: RA, diminished in bases Isolation Precautions: none Access/fluids: RIJ -drsg changed 11/08 , LR @ 125, POWER DRIVEN BRUSH MAKER 0.2 q 8. Oral pain med given at 5pm Diet/GI:, CL, passing gas, BM meds started(11/10) CBGs: q6 : voids in BR, UTI Mobility: SBA, hats in BR. Only ambulated to BR tonight Wounds/Drains: transverse abdominal incision intact with contreras, check totaler, DIAMOND drain x 1, needs frequent emptying, skin breakdown under pannus,wash, clean dry apply nystatin powder,pillow case x2 Critical labs: Critical meds: Antibiotics started for UTI Orders to follow up on: IV Mg replacement Last pain assessment/reassessment: for headache, Harshil 1829 Psych/social issues: can be anxious at times Last visit (i.e. Falls/Activity/Comfort/Environment/Toileting/Skin): resting comfortably Anticipated or pending procedures: possible future OR? Discharge plan: TBD- DC 1-2 day when having BMs valuation Veronique Michaud - 11/11/19 13 6:16 PM PDTProblem: General Plan of Care (Adult) Intervention: NPEOC Acute Goals:pain under control Prevent infection Interventions:assess the effectiveness of POWER DRIVEN BRUSH MAKER at least Q 4hrs, encourage IS and ambulation, monitor vital signs, notify MD for any uncontrolled pain beyond prn medications, monitor wo und. 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 VSS this shift My recommendations forward:as above Patient Stability:Moderately Unstable lan of Care - Cerrato, Barry - 0 11/10/2012 10:34 AM PDTProblem: Case Management Goals Goal: Discharge Needs Met Outcome: Goal not met Await BM prior to DC. Per report, pt is passing gas; hopeful for DC in 1-2 days. Barry Cerrato RN, BSN [employer] [place] [address] /[email or web address] giuliana Kevon Louise Vasyl Solitarion - 11/10/2012 9:00 AM PDTProblem: General Plan of Care (Adult) Intervention: NPEOC Acute Goals:pain under control Prevent infection Interventions:assess the effectiveness of POWER DRIVEN BRUSH MAKER at least Q 4hrs, encourage IS and ambulation, monitor vital signs, notify MD for any uncontrolled pain beyond prn medications, monitor wo und. valuation - Bebo Albert RN - 0 11/10/2012 6:45 AM PDTProblem: Pain Chronic (Adult, Obstetrics) Goal: Identify Signs and Symptoms and Related Risk Factors Goals: 1. Patient's pain will adequately controlled at or below a 5/10 this shift. 2. Patient will demonstrate adequate oxygenation and perfusion d/b spo2>90% on RA this kristin ft. Interventions: 1. Patient will be encouraged/instructed on proper use of POWER DRIVEN BRUSH MAKER and to inform RN if pain not adequately controlled. 2. Encourage patient to roll on side prior to getting out of bed (abdominal precaution) 3. Patient will practice IS exercises 10x per hour while awake 4. Assess pain and vital signs every 4 hours 5. Assess for sedation, respiration and respiration efforts every 2 hours, assess how much pain medication patient is using on POWER DRIVEN BRUSH MAKER 6. Administer migraine medication PRN for headache Interventions that worked/didn't work:Patient was drowsy after her night medication, barely used her POWER DRIVEN BRUSH MAKER. Turned rate down d/t desat. May turn rate up during day time if pt is more alert. Migraine medication helps. My recommendations forward:IS during day shift, ambulate Patient Stability:Moderately Stable andoff - Beob Albert RN - 0 11/10/2012 2:24 AM PDTRN EGS Handoff Report Primary focus of stay: incarcerated bowel and ileus, hernia repair 11/06 PmHx: HTN, DM, bipolar, depression, anxiety, migraines Pertinent physical findings: Vitals: vitals stable, but tachy at times. Desat to 87 and 89 % RA, 1 L O2 provided. MD dawood blunt Respiratory status: RA, diminished in bases Isolation Precautions: none Access/fluids: RIJ -drsg changed 11/08 , LR @ 125, POWER DRIVEN BRUSH MAKER 0.3 q 8. POWER DRIVEN BRUSH MAKER turned down to 0.1 q 8 minutes at 0400 Diet/GI: NPO exc meds, ice chips ok, passing gas CBGs: q6 : voids in BR, UTI Mobility: SBA, hats in BR. Only ambulated to BR tonight Wounds/Drains: transverse abdominal incision intact with contreras, juan, DIAMOND drain x 1, needs frequent emptying, skin breakdown under pannus,wash, clean dry apply nystatin powder,pillow case x2 Critical labs: Critical meds: Antibiotics started for UTI Orders to follow up on: IV Mg replacement Last pain assessment/reassessment: 0445, pt drowsy but POWER DRIVEN BRUSH MAKER was used minimally since 2330. I believe her Bipolar med and Trazadone made her drowsy. Awakable but went back to sleep ri ght away. Refused toileting when offered twice since 330. Absent of pain. pain well contro lled with POWER DRIVEN BRUSH MAKER and prn meds Toradol, for headache, Floricet Psych/social issues: can be anxious at times Last visit (i.e. Falls/Activity/Comfort/Environment/Toileting/Skin): resting comfortably Anticipated or pending procedures: possible future OR? Discharge plan: TBD- DC 1-2 day when having BMs lan of Care - Bebo Albert R N - 11/10/2012 1:54 AM PDTProblem: Pain Chronic (Adult, Obstetrics) Goal: Identify Signs and Symptoms and Related Risk Factors Goals: 1. Patient's pain will adequately controlled at or below a 5/10 this shift. 2. Patient will demonstrate adequate oxygenation and perfusion d/b spo2>90% on RA this kristin ft. Interventions: 1. Patient will be encouraged/instructed on proper use of POWER DRIVEN BRUSH MAKER and to inform RN if pain not adequately controlled. 2. Encourage patient to roll on side prior to getting out of bed (abdominal precaution) 3. Patient will practice IS exercises 10x per hour while awake 4. Assess pain and vital signs every 4 hours 5. Assess for sedation, respiration and respiration efforts every 2 hours, assess how much pain medication patient is using on POWER DRIVEN BRUSH MAKER 6. Administer migraine medication PRN for headache lan of Care - Elsi Quintero, PT - 11/09/2012 2:29 PM PDTPhysical Therapy 11/09/2012 2:29 PM Pt seen on 14K This is hospital day 3 Brief Hospital Course: Dylan Romero is a 37 yo female with an incarcerated ventral hernia no w s/p Exploratory laparotomy, excision of excess skin and chronic wound, primary ventral her niels repair, 19Fr Round Vanessa drain, Staple skin closure on 11/06 (documented in MD op note, S zakiya Liu MD, 11/06). Relevant Precautions: Abdominal Status Update: per patient, possible uti. Subjective: "i was just up to the bathroom." Pain: /10 in abdomen, RN aware. addressed with POWER DRIVEN BRUSH MAKER. Objective: Education: patient able to recall all abdominal precautions on her own although needs cuing for log roll in and out of bed. Heavy discussion regarding safe mobilization and activity e xpectations at this time. Supine to sit: to left edge of bed with heavy verbal cues for technique, using bedrail. Sit to stand: from edge of bed with stand by assist. Gait: ambulated x 250' with no assistive device, close stand by assist. slow steady pace an d no signs of intolerance for this activity. Sit to supine with heavy verbal cues for reverse log roll, patient uses modified version of log roll. patient requires use of bed rail and HOB raised to 30 deg. At end of treatment pt in supine with call flores at side and nursing updated. Assessment: Patient progressing nicely with mobility and endurance following above procedure. somewhat limited by pain, but tolerating ambulation well w/o assistive device. patient does require cuing, bedrail and elevated HOB for safe log roll in and out of bed at this time and will be nefit from ongoing intervention to acquire this skill from flat bed. This patient has good rehabilitation potential to achieve stated goals (see Care Plan for goals) and requires continued rehabilitation services, given the patient's treatment is at a level of complexity or sophistication requiring the skills of a therapist, manuela solis to improve strength, AROM and balance for improved bed mobility, transfers and gait. Please see care plan for goals. Recommendations: Anticipate discharge home with assist of mother/sister as needed. No durab le medical equipment needs anticipated. Activity Plan: Patient to ambulate in room TID with nursing assist as needed; up to chair T ID Clau Quintero DPT Pager [phone] valuation - Brendon Mcgowan RN - 11/09/2012 1:05 PM PDTProblem: Pain Chronic (Adult, Obstetrics) Goal: Identify Signs and Symptoms and Related Risk Factors Goals: 1. Patient's pain will adequately controlled at or below a 5/10 this shift. 2. Patient will demonstrate adequate oxygenation and perfusion d/b spo2>90% on RA this kristin ft. Interventions: 1. Patient will be encouraged/instructed on proper use of POWER DRIVEN BRUSH MAKER and to inform RN if pain not adequately controlled. POWER DRIVEN BRUSH MAKER dose will be titrated for adequate pain relief, patient encoura ged to position for comfort and to utilize non-pharmacologic interventions such as hot/cold packs. 2. Patient will practice cdb/IS exercises 10x per hour, pt will ambulate in hallway x3, si t up to chair x3 this shift, and spo2 levels will be checked with vital signs. Interventions that worked/didn't work: Interventions successful My recommendations forward: Continue to encourage activity Patient Stability:Moderately Stable andoff - Rhona Mcgowan RN - 11/09/2012 1:05 PM PDTRN EGS Handoff Report Primary focus of stay: incarcerated bowel and ileus, hernia repair 11/06 PmHx: HTN, DM, bipolar, depression, anxiety, migraines Pertinent physical findings: Vitals: vitals stable, but tachy at times Respiratory status: RA, diminished in bases Isolation Precautions: none Access/fluids: RIJ -drsg changed 11/08 , LR @ 125, POWER DRIVEN BRUSH MAKER 0.3 q 8 Diet/GI: NPO exc meds, ice chips ok, passing gas CBGs: q6 : voids Mobility: SBA, up in chair x3 this shift, ambulated in hallway x2 Wounds/Drains: transverse abdominal incision intact with contreras, juan, DIAMOND drain x 1, skin b reakdown under pannus,wash, clean dry apply nystatin powder,pillow case x1 Critical labs: Critical meds: Antibiotics started for UTI Orders to follow up on: Last pain assessment/reassessment: pain well controlled with POWER DRIVEN BRUSH MAKER and prn meds Toradol, for headache, Nubain Psych/social issues: can be anxious at times Last visit (i.e. Falls/Activity/Comfort/Environment/Toileting/Skin): resting comfortably Anticipated or pending procedures: possible future OR? Discharge plan: TBD- DC 1-2 day when having BMs lan of Moni Ramirez RN - 11/09/2012 1:05 PM PDTProblem: Pain Chronic (Adult, Obstetrics) Goal: Identify Signs and Symptoms and Related Risk Factors Goals: 1. Patient's pain will adequately controlled at or below a 5/10 this shift. 2. Patient will demonstrate adequate oxygenation and perfusion d/b spo2>90% on RA this kristin ft. Interventions: 1. Patient will be encouraged/instructed on proper use of POWER DRIVEN BRUSH MAKER and to inform RN if pain not adequately controlled. POWER DRIVEN BRUSH MAKER dose will be titrated for adequate pain relief, patient encoura ged to position for comfort and to utilize non-pharmacologic interventions such as hot/cold packs. 2. Patient will practice cdb/IS exercises 10x per hour, pt will ambulate in hallway x3, si t up to chair x3 this shift, and spo2 levels will be checked with vital signs. lan of Yuli Eaton RD, CSOWJodie, LD - 11/09/2012 10:51 AM PDTProblem: Nutrition Interventions Intervention: Food and nutrient distribution type or amount No PO's since Thursday wants something to drink. Just started 1000 kcal/day Anil parikh MD suggested it. Pt reports 30lb weight loss in past ~1 month - intentional. Rec: - ADAT to DB adult - Monitor adequacy of intake and tolerance to diet - Continue to monitor and replete lytes - Monitor glucose control Intervention: Nutrition Education Discussed need to include some CHO's in diet especially since pt is taking insulin at home (50u lantus q pm per pt). Discussed having 15g CHO snack in the evening (pt usually has popc orn - 100kcal snack pack). Rec: - Provide education on sustainable weight loss - Pt may benefit from f/u with outpatient RD Following Yuli Childs RD, CNSC, LD Pager# [phone] Comments: Dylan Romero is a 37 y.o. female who is on HD# 3, POD #3 S/P incarcerated ventral herni a repair with primary repair, panniculectomy. Nutrition Dx: Potential inadequate intake if unable to advance diet post-op. Undesirable fo od choices; related to lack of prior exposure to accurate nutrition-related information as e videnced by BMI of 76.5. NPO. BM: prior to admit, UOP: 3050+, Wound Drain: 290ml Labs: K 3.3 - repleted, Mg 1.2 - repleted, Phos 2.2 Meds include: SSI, prilosec BID, culturelle. LR @125ml/hr Ht: 61", Wt: 182kg - standing (11/07), BMI: 76.5, IBW: 47.7kg, AdjBW: 81kg Est Needs: 1440-1875kcal/day (18-23kcal/kg AdjBW), 95-120g pro/day (2-2.5g/kg IBW)Cnoi chitra signed by Yuli Childs RD, CSOWM, LD at 11/09/2012 11:05 AM PDTEvaluation - Charlotte Austin RN - 11/09/2012 6:38 AM PDTProblem: Pain, Acute (Adult, Obstetrics) Goal: Identify Signs and Symptoms and Related Risk Factors Goals: 1. Patient will remain free of falls during shift 2. Patient will state pain </= 3/10 during shift. 3. Patient will have no new skin issue develop tonight 5. Patient will have no nausea/vomiting during shift Interventions: 1. Hourly rounding. Keep room free of clutter and debris. Keep IV tubing secured. Utilize b ed alarm if patient non-compliant. Ensure the use of non-skid socks on when out of bed. Comm ode/urinal at bedside. Call light within reach. Educate patient and family on fall preventio n. 2. Assess pain Q3-4 hours. Treat with appropriate pain medication (scheduled and PRN). Titr ate pain medication as necessary and able. Notify team if pain not controled. Encourage deep breathing, distraction and change of position as alternative methods of pain reduction. Edu savana patient and family on pain and treatment. Offer IV dilauded for pain relief. Encourage Pulmonary hygiene activities. 4. Encourage pt to dangle x1 and or walk the halls this am Educate on importance of ambulat ion. Schedule ambulation times around peak pain medication times. Use white board to track a mbulation and mobility progress. 5. Assess skin [id number] and PRN. Educate on prevention of skin breakdown. Elevate heels and other pressure points. Ask MD to order nystatin powder for application underneath pannus. 6. Assess n/v [id number] and PRN. Treat with PRN and/or scheduled anti-emetics. Educate on alt ernative techniques for nausea management Interventions that worked/didn't work:Pt continues to refuse to turn in bed, pain controlle d with POWER DRIVEN BRUSH MAKER Dilaudid,denied nausea My recommendations forward:Encourage ambulation, good hygiene(pannus) Patient Stability:Moderately Stable andoff - Charlotte Austin RN - 11/09/2012 6:35 AM PDTRN EGS Handoff Report Primary focus of stay: incarcerated bowel and ileus, hernia repair 11/06 PmHx: HTN, DM, bipolar, depression, anxiety, migraines Pertinent physical findings: Vitals: vitals stable, but tachy at times Respiratory status: RA, diminished in bases Isolation Precautions: none Access/fluids: RIJ -drsg changed today , LR @ 125, POWER DRIVEN BRUSH MAKER 0.2 q 8 Diet/GI: NPO exc meds, ice chips ok, passing gas CBGs: q6 : voids Mobility: SBA, up in chair once this shift Wounds/Drains: transverse abdominal incision, DIAMOND drain x 1, skin breakdown under pannus,was h, clean dry apply nystatin and cream,pillow case x1 Critical labs: Critical meds: UA sent Orders to follow up on: Last pain assessment/reassessment: pain well controlled with POWER DRIVEN BRUSH MAKER and prn meds Toradol, for headache, Nubain Psych/social issues: can be anxious at times Last visit (i.e. Falls/Activity/Comfort/Environment/Toileting/Skin): resting comfortably Anticipated or pending procedures: possible future OR Discharge plan: TBD lan of Care - Charlotte Caldwell RN - 11/08/2012 7:54 PM PDTProblem: Pain, Acute (Adult, Obstetrics) Goal: Identify Signs and Symptoms and Related Risk Factors Goals: 1. Patient will remain free of falls during shift 2. Patient will state pain </= 3/10 during shift. 3. Patient will have no new skin issue develop tonight 5. Patient will have no nausea/vomiting during shift Interventions: 1. Hourly rounding. Keep room free of clutter and debris. Keep IV tubing secured. Utilize b ed alarm if patient non-compliant. Ensure the use of non-skid socks on when out of bed. Comm ode/urinal at bedside. Call light within reach. Educate patient and family on fall preventio n. 2. Assess pain Q3-4 hours. Treat with appropriate pain medication (scheduled and PRN). Titr ate pain medication as necessary and able. Notify team if pain not controled. Encourage deep breathing, distraction and change of position as alternative methods of pain reduction. Edu savana patient and family on pain and treatment. Offer IV dilauded for pain relief. Encourage Pulmonary hygiene activities. 4. Encourage pt to dangle x1 and or walk the halls this am Educate on importance of ambulat ion. Schedule ambulation times around peak pain medication times. Use white board to track a mbulation and mobility progress. 5. Assess skin [id number] and PRN. Educate on prevention of skin breakdown. Elevate heels and other pressure points. Ask MD to order nystatin powder for application underneath pannus. 6. Assess n/v [id number] and PRN. Treat with PRN and/or scheduled anti-emetics. Educate on alt ernative techniques for nausea management lan of Care - Briana Flores RCP - 11/08/2012 2:50 PM PDT Problem: RT Goals & Interventions Goal: Evaluation History and Assessment Pulmonary problems: none 0Smoking history: History Smoking status Never Smoker Smokeless tobacco Not on file Results of recent Chest X-ray: CXR * 11/06/2012 Value: STUDY: MD CHEST 1 VIEW 11/06/12 16:46:00 INDICATION: Right upper lobe opacity. COMPARISON: Earlier same day a STUDY: MD CHEST 1 VIEW 11/06/12 16:46:00 COMPARISON: None. FINDINGS: Lung volumes remain low. There is persistent right upper lobe collapse, with elevation of the right minor fissure. There is mild indistinctness of the pulmonary vascul ature, suggestive of developing mild hydrostatic edema. No definite pleural effusion is see n. No pneumothorax. IMPRESSION: Low lung volumes with persistent right upper lobe colla pse, presumably due to mucous plugging. Suspected developing hydrostatic edema. Attend ing Radiologists: ANA DE LA FUENTE MD Author: ANA DE LA FUENTE MD I have personally viewed t his procedure/exam, reviewed this report, and made changes to it where appropriate. Fi nal/Electronically signed / ANA DE LA FUENTE 11/06/2012 22:19 PM Pain: Oxygen requirement: $ Simple O2 Delivery: nc Oxygen Flow Rate: 4 Oxygen Flow Unit of Measure: L/min FIO2 (%): 40 fraction of O2 Heart rate: 105 Respiratory rate: 18 Temperature: Temp: 36.5 C (97.7 F) Breathsounds:Breath Sounds Locations: Bilateral Bilateral: clear;diminished Cough and sputum production:$ Cough Type: productive Respiratory Acuity and Protocol Plan A respiratory evaluation has been completed. 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 No treatment Nee ded from RT standpoint. valuation - Geneva Villalobos RN - 11/08/2012 11:58 AM PDTNo notes of Plan of Care type on file. Interventions that worked/didn't work:Goals:to get OOB, to have a sponge bath, pain managem ent, to advance diet, change CVC Interventions:assist with ambulation, 2 person, up to the chair, POWER DRIVEN BRUSH MAKER, iv toradol, tylenol a s needed for headache, ice chips, SOLUTION DESIGN ENGINEER at the bedside , reposition, help/assist student with d ressing change My recommendations forward:keep assisting with needs Patient Stability:Moderately Stable andoff - Geneva Kohli RN - 11/08/2012 11:58 AM PDTRN EGS Handoff Report Primary focus of stay: incarcerated bowel and ileus, hernia repair 11/06 PmHx: HTN, DM, bipolar, depression, anxiety, migraines Pertinent physical findings: Vitals: vitals stable, but tachy at times Respiratory status: RA, diminished in bases Isolation Precautions: none Access/fluids: RIJ -drsg changed today , LR @ 125, POWER DRIVEN BRUSH MAKER 0.2 q 8 Diet/GI: NPO exc meds, ice chips ok, passing gas CBGs: q6 : voids Mobility: SBA, was up twice in chair, Wounds/Drains: transverse abdominal incision, DIAMOND drain x 1, skin breakdown under pannus,was h, clean dry apply nystatin and cream,pillow case at least TID Critical labs: Critical meds: insulin drip??/ Orders written last shift. NOC doctor ordered to hold due to low CBG and NPO status Orders to follow up on: Last pain assessment/reassessment: pain well controlled with POWER DRIVEN BRUSH MAKER and prn meds Toradol, for headache, Nubain Psych/social issues: can be anxious at times Last visit (i.e. Falls/Activity/Comfort/Environment/Toileting/Skin): resting comfortably Anticipated or pending procedures: possible future OR Discharge plan: TBD lan of Care - Felisa June, PT - 11/08/2012 11:51 AM PDT Physical Therapy Evaluation 11/08/2012 11:51 AM Admitted on 11/06/2012, hospital day 2 Patient seen on 10A Brief Hospital Course: Dylan Romero is a 37 yo female with an incarcerated ventral hernia now s/p Exploratory laparotomy, excision of excess skin and chronic wound, primary ventral h ernia repair, 19Fr Round Vanessa drain, Staple skin closure on 11/06 (documented in MD op note, Danny Liu MD, 11/06). Relevant Precautions: Abdominal Past Medical History Diagnosis Date Neck pain Insomnia Allergic rhinitis Hypertension Lymphedema Esophageal reflux Diverticulitis of colon Hemorrhoids UTI (urinary tract infection) DM type 2 (diabetes mellitus, type 2) Tinea corporis Osteoarthritis of knee Migraine headache TIA (transient ischemic attack) Myalgia and myositis Bipolar disorder Depression Sleep apnea Staphylococcal infection Anemia Chronic wound infection of abdomen Morbid obesity with body mass index of 70 and over in adult Incisional hernia, incarcerated Subjective: Patient agreeable to evaluation Living Environment: Patient lives with her mother, who can assist minimally as needed, in a single level home with 5-7 steps to enter with unilateral handrail. Sister is caregiver and assists daily with care. Daughter lives with her fiancee and young children, but is availab le to assist as well. Prior Level of Function: Patient required assist with donning shoes/socks and shaving legs but was otherwise independent with activities of daily living and ambulated without an francesca tive device. Patient used motorized scooter in [facility] only. Patient / Family Goal: To return home Communication: Micronesian Barriers: none Pain: 7/10 in abdomen at rest; pressed POWER DRIVEN BRUSH MAKER appropriately Vital signs: stable per observation on room air Cognitive Screen Level of alertness: alert Orientation: x4 Quality of responses: appropriate Command following: multi step intact Judgment / safety awareness: Good Physical Assessment ROM: bilateral lower extremities within functional limits Strength: minimum 3+/5 per observation of functional mobility Edema: abdominal edema vs soft tissue Skin Integrity: intact per observation; incision not visualized Neurological Function Sensation: intact to light touch sensation; noted tingling "when my arms fall asleep" but that quickly resolves Muscle Tone: no abnormal tone noted Proprioception: within functional limits Gross Motor: intact per ambulation Fine Motor: intact per manipulation of cell phone Balance: Sitting static: independent edge of chair Sitting dynamic: supervision Standing static: supervision Standing dynamic: close supervision; wide base of support but no overt loss of balance Mobility & Transfers: Supine <> sit: patient up in chair upon arrival; per patient, required assist for logroll Sit <> stand: standby assist, no assistive device from low chair Scoot: independent seated Stand pivot transfer: not tested Gait: Patient ambulated in room (limited by patient request because on menstrual cycle and unable to wear pads at this time) Treatment provided this date: Evaluation completed; education regarding role of physical th erapy; education regarding abdominal precautions (handout provided); plan of care establishe d Ended session: Patient seated in bedside chair with call light/tray in reach and needs met ASSESSMENT: Dylan Romero is a 37 yo female with an incarcerated ventral hernia now s/p Explo ratory laparotomy, excision of excess skin and chronic wound, primary ventral hernia repair, 19Fr Round Vanessa drain, Staple skin closure on 11/06 (documented in MD op note, Danny Liu MD, 11/06). Patient presents mildly below baseline level of function of independence with most activiti es of daily living and ambulation without an assistive device. Patient now with limited acti vity tolerance secondary to pain and functional mobility deficits, requiring assist for bed mobility and standby assist for transfers and gait for improved safety. Patient would benefi t from further physical therapy to address functional mobility and gait deficits and to ensu re safety with stairs. This patient has good rehabilitation potential to achieve stated goals (see Care Plan for g oals) and requires continued rehabilitation services, given the patient's treatment is at a level of complexity or sophistication requiring the skills of a therapist, specifically to i mprove strength, AROM and balance for improved bed mobility, transfers and gait. Recommendations: Anticipate discharge home with assist of mother/sister as needed. No durab le medical equipment needs anticipated. Activity Plan: Patient to ambulate in room TID with nursing assist as needed; up to chair T ID PLAN: Gait/transfer training, therapeutic exercise, therapeutic activity, education, neuro muscular reeducation Frequency: 5x/week Duration: 1 week The above plan of care and goals were developed and reviewed with the patient. SARAH WatsonT Physical Therapist lan of Care - Barry Wilburn - 11/08/2012 7:31 AM PDTProblem: Case Management Goals Goal: Discharge Needs Met Outcome: Goal not met Initial Case Management Note Reason for admission: Incarcerated hernia. Postop: 1) Exploratory laparotomy 2) Excision of excess skin and chronic wound infection 3) Primary ventral hernia repair 4) 19Fr Round Vanessa Drain 5) Staple skin closure Pre-admission living situation: [place], [place] Pre-admission functional status: Independent Family/support system: Jazmyn Darden Insurance/funding in place: SALES AND IN [employer] [place] - Plus Anticipated discharge needs: Likely DC home, following for needs. Barry Cerrato RN, BSN [address] [address] [email or web address] [phone] [phone] andamy - Ramon Austin RN - 11/08/2012 2:53 AM PDTRN EGS Handoff Report Primary focus of stay: incarcerated bowel and ileus, hernia repair 11/06 PmHx: HTN, DM, bipolar, depression, anxiety, migraines Pertinent physical findings: Vitals: vitals stable, but tachy at times Respiratory status: 4L NC, diminished in bases Isolation Precautions: none Access/fluids: RIJ and L PIV, LR @ 125, POWER DRIVEN BRUSH MAKER 0.2 q 8 Diet/GI: NPO exc meds, NGT d/c today CBGs: q6 : FC Mobility: SBA, ambulated today on ICU Wounds/Drains: transverse abdominal incision, DIAMOND drain x 1, skin breakdown under pannus Critical labs: Critical meds: insulin drip??/ Orders written last shift. NOC doctor ordered to hold due to low CBG and NPO status Orders to follow up on: clarify insulin drip order Last pain assessment/reassessment: pain well controlled with POWER DRIVEN BRUSH MAKER/ Pt does think Dilaudid is giving her a constant RODRIGUES Psych/social issues: can be anxious at times Last visit (i.e. Falls/Activity/Comfort/Environment/Toileting/Skin): resting comfortably Anticipated or pending procedures: possible future [place] Discharge plan: TBD lan Charlotte Orourke RN - 11/08/2012 2:49 AM PDTProblem: Infection, Risk/Actual (Adult, Obstetri cs) Goal: Infection, Risk/Actual: Infection Prevention/Resolution/Control Goals: 1. Patient will remain free of falls during shift 2. Patient will state pain </= 3/10 during shift. 3. Patient will have no new skin issue develop tonight 5. Patient will have no nausea/vomiting during shift Interventions: 1. Hourly rounding. Keep room free of clutter and debris. Keep IV tubing secured. Utilize b ed alarm if patient non-compliant. Ensure the use of non-skid socks on when out of bed. Comm ode/urinal at bedside. Call light within reach. Educate patient and family on fall preventio n. 2. Assess pain Q3-4 hours. Treat with appropriate pain medication (scheduled and PRN). Titr ate pain medication as necessary and able. Notify team if pain not controled. Encourage deep breathing, distraction and change of position as alternative methods of pain reduction. Edu savana patient and family on pain and treatment. Offer IV dilauded for pain relief. Encourage Pulmonary hygiene activities. 4. Encourage pt to dangle x1 and or walk the halls this am Educate on importance of ambulat ion. Schedule ambulation times around peak pain medication times. Use white board to track a mbulation and mobility progress. 5. Assess skin [id number] and PRN. Educate on prevention of skin breakdown. Elevate heels and other pressure points. Ask MD to order nystatin powder for application underneath pannus. 6. Assess n/v [id number] and PRN. Treat with PRN and/or scheduled anti-emetics. Educate on alt ernative techniques for nausea management andoff - Arielle Eli RN - 11/07/2012 8:04 PM PDTRN EGS Handoff Report Primary focus of stay: incarcerated bowel and ileus, hernia repair 11/06 PmHx: HTN, DM, bipolar, depression, anxiety, migraines Pertinent physical findings: Vitals: vitals stable, but tachy at times Respiratory status: 4L NC, diminished in bases Isolation Precautions: none Access/fluids: RIJ and L PIV, LR @ 125, POWER DRIVEN BRUSH MAKER 0.2 q 8 Diet/GI: NPO exc meds, NGT d/c today CBGs: q6 : FC Mobility: SBA, ambulated today on ICU Wounds/Drains: transverse abdominal incision, DIAMOND drain x 1, skin breakdown under pannus Critical labs: Critical meds: insulin drip?? Orders to follow up on: clarify insulin drip order Last pain assessment/reassessment: pain well controlled with POWER DRIVEN BRUSH MAKER Psych/social issues: can be anxious at times Last visit (i.e. Falls/Activity/Comfort/Environment/Toileting/Skin): resting comfortably Anticipated or pending procedures: possible future [place] Discharge plan: TBD lan of Care - Anthony joanna Zari, [facility] - 11/07/2012 11:10 AM PDT Problem: RT Goals & Interventions Goal: Evaluation History and Assessment Pulmonary problems: pt with no history of pulmonary issues, pt does have AMARA but hasn't bee n compliant with bipap machine at home due to mask fitting. IS and PEP done during evaluatio n pt was able to bring IS up to 1500 ml. Teaching on importance of working on IS and PEP chery ry 1 hour done, pt understands and will try to work on it. RN please remind pt to work on IS and PEP. Smoking history: History Smoking status Never Smoker Smokeless tobacco Not on file Results of recent Chest X-ray: CXR * 11/06/2012 Value: STUDY: MD CHEST 1 VIEW 11/06/12 16:46:00 INDICATION: Right upper lobe opacity. COMPARISON: Earlier same day a STUDY: MD CHEST 1 VIEW 11/06/12 16:46:00 COMPARISON: None. FINDINGS: Lung volumes remain low. There is persistent right upper lobe collapse, with elevation of the right minor fissure. There is mild indistinctness of the pulmonary vascul ature, suggestive of developing mild hydrostatic edema. No definite pleural effusion is see n. No pneumothorax. IMPRESSION: Low lung volumes with persistent right upper lobe colla pse, presumably due to mucous plugging. Suspected developing hydrostatic edema. Attend ing Radiologists: ANA DE LA FUENTE MD Author: ANA DE LA FUENTE MD I have personally viewed t his procedure/exam, reviewed this report, and made changes to it where appropriate. Cali collins/Electronically signed / ANA DE LA FUENTE 11/06/2012 22:19 PM Pain: Oxygen requirement: $ Simple O2 Delivery: nc Oxygen Flow Rate: 4 Oxygen Flow Unit of Measure: L/min FIO2 (%): 40 fraction of O2 Temperature: Temp: 36.5 C (97.7 F) Breathsounds:Breath Sounds Locations: Bilateral Bilateral: clear;diminished Cough and sputum production:$ Cough Type: productive Respiratory Acuity and Protocol Plan A respiratory evaluation has been completed. Based on this assessment Adult Bronchial Hygie ne Protocal. lan of Bob Mcfarland RCP - 11/06/2012 3:08 PM PDT Problem: RT Goals & Interventions Goal: Evaluation History and Assessment Pulmonary problems: AMARA Smoking history: History Smoking status Never Smoker Smokeless tobacco Not on file Results of recent Chest X-ray: CXR * 05/14/1993 Value: Radiologist 1: SALVATORE PURCELL DYLAN 01 16 46 69 SINGLE PORTABLE CHEST: 05-14-93 AT 0140 HOURS Dicta emely: 05-14-93 FINDINGS: Limited, relatively overpenetrated, single view of the patient in a recumbent posture shows that a central venous line introduced by a right IJ approach term inates at the cavoatrial junction. Patchy density in right lung and left lower lobe suspici ous for possible pneumonia. No evidence of pneumothorax. IMPRESSION: Bilateral infiltrate s, right greater than left, suspicious for pneumonia. END OF IMPRESSION: Pain: Oxygen requirement: FIO2 (%): 60 fraction of O2 Heart rate: 88 Respiratory rate: 22 Temperature: Temp: 36.9 C (98.4 F) Breathsounds: Cough and sputum production: Respiratory Acuity and Protocol Plan A respiratory evaluation has been completed. Based on this assessment No therapy indicated. Comments: Pt has history of AMARA and will be evaluated for CPAP post extubation valuation - Miladis Braga RN - 11/06/2012 6:09 AM PDTProblem: Infection, Risk/Actual (Adult, Obstetrics) Goal: Signs and symptoms of listed potential problems will be absent or manageable (iliana story (Pressure Ulcer (Adult, Obstetrics)) CPG) Goals: 1. Patient will remain free of falls during shift 2. Patient will state pain </= 3/10 during shift. 3. Patient will dangle and or walk x 1 this shift 4. Patient skin will remain intact during shift. 5. Patient will have no nausea/vomiting during shift. Interventions: 1. Hourly rounding. Keep room free of clutter and debris. Keep IV tubing secured. Utilize b ed alarm if patient non-compliant. Ensure the use of non-skid socks on when out of bed. Call light within reach. Educate patient and family on fall prevention. 2. Assess pain Q3-4 hours. Treat with appropriate pain medication (scheduled and PRN). Titr ate pain medication as necessary and able. Notify team if pain not controled. Encourage deep breathing, distraction and change of position as alternative methods of pain reduction. Edu savana patient and family on pain and treatment. Offer IV dilauded for pain relief. Encourage Pulmonary hygiene activities. 4. Encourage pt to dangle x1 and or walk the halls this am Educate on importance of ambulat ion. Schedule ambulation times around peak pain medication times. Use white board to track a mbulation and mobility progress. 5. Assess skin [id number] and PRN. Educate on prevention of skin breakdown. Elevate heels and other pressure points. Ask MD to order nystatin powder for application underneath pannus. 6. Assess n/v [id number] and PRN. Treat with PRN and/or scheduled anti-emetics. Educate on alt ernative techniques for nausea management (i.e. Side lying, distraction, deep breathing). Pl amanda NGT if ordered. Interventions that worked/didn't work: NPO, MIVF, awaiting labs, will attempt NGT placement , OOB and ambulated in room and to the bathroom, UA sent (results pending), IV dilauded 0.5m g effective for pain relief, IV ativan x1 with relief. IS at bedside (needs teaching ), SCD on, awaiting to see if pt needs to go to CT. My recommendations forward: Thorough skin assessment, orders for wound care, shower/ bed ba th. Patient Stability:Moderately Stable lan of Care - Jodie Braga RN - 11/06/2012 6:09 AM PDTProblem: Infection, Risk/Actual (Adult, Obstetrics) Goal: Signs and symptoms of listed potential problems will be absent or manageable (referen ce (Pressure Ulcer (Adult, Obstetrics)) CPG) Goals: 1. Patient will remain free of falls during shift 2. Patient will state pain </= 3/10 during shift. 3. Patient will dangle and or walk x 1 this shift 4. Patient skin will remain intact during shift. 5. Patient will have no nausea/vomiting during shift. Interventions: 1. Hourly rounding. Keep room free of clutter and debris. Keep IV tubing secured. Utilize b ed alarm if patient non-compliant. Ensure the use of non-skid socks on when out of bed. Comm ode/urinal at bedside. Call light within reach. Educate patient and family on fall preventio n. 2. Assess pain Q3-4 hours. Treat with appropriate pain medication (scheduled and PRN). Titr ate pain medication as necessary and able. Notify team if pain not controled. Encourage deep breathing, distraction and change of position as alternative methods of pain reduction. Edu savana patient and family on pain and treatment. Offer IV dilauded for pain relief. Encourage Pulmonary hygiene activities. 4. Encourage pt to dangle x1 and or walk the halls this am Educate on importance of ambulat ion. Schedule ambulation times around peak pain medication times. Use white board to track a mbulation and mobility progress. 5. Assess skin [id number] and PRN. Educate on prevention of skin breakdown. Elevate heels and other pressure points. Ask MD to order nystatin powder for application underneath pannus. 6. Assess n/v [id number] and PRN. Treat with PRN and/or scheduled anti-emetics. Educate on alt ernative techniques for nausea management (i.e. Side lying, distraction, deep breathing). Pl amanda NGT if ordered. andoff - Claudia Braga RN - 11/06/2012 5:42 AM PDTRN EGS Handoff Report Primary focus of stay: 37 female admit from [place] w/ possible incarcerated hernia, N/V, abdominal pain ( possible bariatric surgery too) PmHx: HTN, Diabetes Type I, Lymphedema, TIA, bipolar, depression, anxiety, morbid obesity, open appendectomy in 2010 which resulted in multiple infection, diverticulitis. Pertinent physical findings: Vitals: WNL Respiratory status: O2 saturation 92-93 % on RA, clear in upper [place] but diminished in b ases, IS at bedside, needs pre-op teaching Isolation Precautions: Standard precautions Access/fluids: PIV x 1 in right wrist ( admit with from outside hospital, needs to be adair ged within 24hrs), MIVF @ 75cc/hr. Diet/GI: NPO except for rx, mouth swab at bedside, Active BT, large pannus, large bulge ne ar mid abdomen, tender to palpation ( MD couldn't reduce hernia at bedside secondary to pain ) BM / per pt report. Will attempt to place NGT. CBGs: Q 6 because of NPO : UA sent, menses now Mobility: Up with supervision, good mobility. Wounds/Drains: Bilateral groin rash under pannus w/ foul smelling odor and mclaughlin exudate, ex coriations bilaterally and LLQ ( underneath pannus wound ) Needs cleaning and nystatin cream ordered? Please follow up on day shift Critical labs: Follow up on am labs, still pending ( chemistry, CBC, type & screen ) Critical meds: IV dilauded and IV ativan. Orders to follow up on: NPO, EKG results in chart ( not sure if MD looked at results), labs , thorough skin assessment ( also needs a shower/ bed bath), possible CT scan in am? ( could n't complete CT @ previous hospital due to body habitus) New PIV within 24 hrs. Wound care? Last pain assessment/reassessment: 0600, IV dilauded 0.5mg effective for pain. Psych/social issues: Anxious Last visit (i.e. Falls/Activity/Comfort/Environment/Toileting/Skin): Up with supervision, a mbulated in room. Bariatric bed. Anticipated or pending procedures: Possible CT scan in am, possible surgery? [facility] 11/06/2012 12:05 AM PDTDr Yanely adv having trouble getting transport. Unable air. Th ey are trying to get a ground unit together. [facility]k T [facility] - 11/05/2012 10:54 PM PDTPer PPO [facility] 11/05/2012 10:06 PM PDTConnected. 37 yof. Had appendectomy previ ously, developed hernia on L side of incision. Appears to be incarcerated possibly strangula emely. Pt 404 lbs. Unable to get CT scanned. Pt vomiting, started at [address] Chun accepts pt with a bariatric bed, req 14A. [facility] - 11/05/2012 10:[address] Ramires. Paged EGS [address] Chun. documented in this encounter Plan of Treatment +--------+---------+ + + + | Date | Type | Specialty | Care Team | Description | +--------+---------+ + + + | 06/08/ | Office | Plastic Surgery | Antoinette Hale, | | | 2020 | Visit | | [address] | | | | | | [address] | | | | | | [place], [place] | | | | | | [address] | | | | | | [phone] | | | | | | | [...] for this | | | e | 6:57 AM | | procedure are [...] + +--------+ + + + | LACTATE (ART) POC | Routin | 11/06/2012 | Hernia | Results for this | | ISTAT | e | 11:08 AM | | procedure are in the | | | | PDT | | results section. | + +--------+ + + + | HEMOGLOBIN-PASCUAL, POC | Routin | 11/06/2012 | Hernia [...] Mae | | | | | | [place] | | | | + + + [...] [facility] | [address] | [place], [place] | | | [facility] | [address] | [address] | | | TESTS | | | [...] [facility] | [address] | [place], [place] | | | [facility] | [address] | [address] | | | TESTS | | | [...] [facility] | [address] | [place] [address] | | | SERVICES, CORE | PARK [...] | | | LABORATORY | | | [facility] | | | SERVICES, | | | [...] + + + + + | [facility] | [address] | [place] [address] | | | SERVICES, CORE | CLARENCE [...] [facility] | [address] | [place] [address] | | | SERVICES, CORE | PARK [...] [facility] | [address] | [place], [place] | | | [facility] [facility] | [address] | [address] | | | TESTS | | | [...] [facility] | [address] | [place], [place] | | | [facility] | [address] | [address] | | | TESTS | | | [...] [facility] | [address] | [place], [place] | | | [facility] [facility] | [address] | [address] | | | TESTS | | | [...] + | [facility] | [address] [facility] [address] | [place], [place] | | | [facility] [facility] | [address] | [address] | | | TESTS | | | [...] + + + | [facility] | [address] | [place], [place] | | | [facility] | [address] | [address] | | | TESTS | | | [...] + + + + + | [facility] | [address] | [place] [address] | | | SERVICES, CORE | CLARENCE [...] | | | LABORATORY | | | [facility] | | | SERVICES, | | | [...] + + + + | [facility] | [address] | [place] [address] | | | SERVICES, CORE | [address] | | | + + + + + MAGNESIUM, PLASMA (11/11/2012 3:38 AM PDT) + +---------+ + + + | Component | Value | Ref Range | Performed | Pathologist | | | | | At | Signature | + +---------+ + + + | MAGNESIUM,P | 1.5 (L) | 1.8 - 2.5 mg/dL | NVORIN [...] + + + + | [facility] | [address] | [place] [address] | | | SERVICES, CORE | CLARENCE [...] | 60 - 99 mg/dL | [facility] - | | | GLUCOSE, | | [...] [facility] | [address] | [place], [place] | | | [facility] | [facility] | [address] | | | TESTS | | | [...] [facility] | [address] | [place], [place] | | | [facility] | [facility] | [address] | | | TESTS | | | [...] [facility] | [address] | [place], [place] | | | [facility] [facility] | [address] | [address] | | | TESTS | | | [...] [facility] | [address] | [place], [place] | | | [facility] | [facility] | [address] | | | TESTS | | | | + + + + + CAPILLARY BLOOD GLUCOSE (NO CHG) POC (11/10/2012 5:56 AM PDT) + +-------+ [...] [facility] | [address] | [place], [place] | | | [facility] | [facility] | [address] | | | TESTS | | | [...] [facility] | [address] | [place] [address] | | | LYDIA RANGEL | PARK [...] | | | LABORATORY | | | [facility] | | | SERVICES, | | | [...] + + + + + | [facility] | [address] | [place] [address] | | | SERVICES, CORE | PARK [...] [facility] | [address] | [place] [address] | | | LYDIA RANGEL | CLARENCE [...] [facility] | [address] | [place], [place] | | | [facility] [facility] | [address] | [address] | | | TESTS | | | [...] [facility] | [address] | [place], [place] | | | [facility] | [facility] | [address] | | | TESTS | | | [...] [facility] | [address] | [place], [place] | | | [facility] [place] | [address] | [address] | | | TESTS | | | | + + + + + CULTURE, URINE BACTI (11/09/2012 6:57 AM PDT) + + + [...] | | | Final CULTURE | | [place] | | | | RESULT:>100,000 cfu/ml | [...] + | [facility] | [address] | [place] [address] | | | [place] | | | | + + + + + UAMADAY ONLY (11/09/2012 6:57 AM PDT) + + [...] [facility] | [address] | [place] [address] | | | SERVICES, CORE | PARK [...] + + + + | [facility] | [address] | [place] [address] | | | SERVICES, CORE | CLARENCE [...] [facility] | [address] | [place], [place] | | | [facility] | [facility] | [address] | | | TESTS | | | [...] | | | LABORATORY | | | [facility] | | | SERVICES, | | | [...] [facility] | [address] | [place] [address] | | | SERVICES, CORE | PARK [...] + + + + | [facility] | [address] | [place] [address] | | | SERVICES, CORE | PARK [...] | + + + + + | [employer] | [address] | [place] [address] | | | SERVICES, CORE | PARK [...] [facility] | [address] | [place], [place] | | | [facility] | [address] | [address] | | | TESTS | | | [...] - [facility] | [address] | [place], [place] | | | [facility] | [facility] | [address] | | | TESTS | | | | + + + + + CAPILLARY BLOOD GLUCOSE (NO CHG), POC (11/08/2012 12:09 PM PDT) + +-------+ + + + | Component | Value | Ref Range | Performed | Pathologist | | | | | At | Signature | + +-------+ + + + | BLOOD | 97 | 60 - 99 mg/dL | [facility] [...] [facility] | [address] [address] | [place], [place] | | | [facility] | [address] | [address] | | | TESTS | | | [...] + + + + | [facility] | [address] | [place] [address] | | | SERVICES, CORE | [address] | | | + + + + + MAGNESIUM, PLASMA (11/08/2012 7:48 AM PDT) + +---------+ + + + | Component | Value | Ref Range | Performed | Pathologist | | | | | At | Signature | + +---------+ + + + | MAGNESIUM,P | 1.4 (L) | 1.8 - 2.5 mg/dL | [facility] | | | LASMA | | | [...] + + + + | [facility] | [address] | [place] [address] | | | SERVICES, CORE | PARK [...] | | | LABORATORY | | | NORWEGIAN | | | SERVICES, | | | [...] + + + + | [facility] | [address] | [place] [address] | | | SERVICES, CORE | [address]ENCE [...] 92 | 60 - 99 mg/dL | [facility] - | | | GLUCOSE, | | [...] AMES | [address] | [place], [place] | | | [facility] OF [facility] | [address] | [address] | | | TESTS | | | [...] [facility] | [address] | [place], [place] | | | [facility] CARE | [address] | [address] | | | TESTS | | | [...] - [facility] | [address] | [place], [place] | | | [facility] [place] [facility] | [address] | [address] | | | TESTS | | | [...] + + + + | [facility] | [address] | [place] [address] | | | SERVICES, CORE | [address] | | | + + + + + MAGNESIUM, PLASMA (11/07/2012 12:30 AM PDT) + +---------+ + + + | Component | Value | Ref Range | Performed | Pathologist | | | | | At | Signature | + +---------+ + + + | MAGNESIUM,P | 1.7 (L) | 1.8 - 2.5 mg/dL | [facility] [...] + + + + + | [facility] | [address] | [place] [address] | | | SERVICES, CORE | [address]ENCE [...] | | | LABORATORY | | | NORWEGIAN | | | SERVICES, | | | [...] MDRD equation recommended by the | [facility] | | National Kidney Disease Education Program. [...] + + + + | [facility] | [address] | [place] [address] | | | CLAIRE, LYDIA | CL[address]ENCE [...] Radiologists: | | | | | | Analisa BROWN | | | | | MDAuthor: ANA [...] | + +---------+ + + | [facility] | | | | | [...] [facility] | [address] | [place] [address] | | | SERVICES, CORE | PARK [...] | | | LABORATORY | | | NORWEGIAN | | | SERVICES, | | | [...] + + + + + | [facility] | [address] | [place] [address] | | | SERVICES, CORE | CL[address]ENCE [...] [facility] | [address] | [place] [address] | | | SERVICES, CORE | PARK [...] - [facility] | [address] | [place], [place] | | | [facility]WN OF [place] | [address] | [address] | | | TESTS | | | | + + + + + ABG VALERIE SANTACRUZ (11/06/2012 1:03 PM PDT) + + + [...] [facility] | [address] | [place], [place] | | | [facility] | [address] | [address] | | | TESTS | | | [...] AMES | [address] | [place], [place] | | | [facility] | [address] | [address] | | | TESTS | | | | + + + + + SODIUM (ART)VALERIE (11/06/2012 11:08 AM PDT) + +-------+ [...] [facility] | [address] | [place], [place] | | | [facility] CARE | [address] | [address] | | | TESTS | | | [...] [facility] | [address] | [place], [place] | | | [facility] | [facility] | [address] | | | TESTS | | | [...] mg/dL | [facility] - | | | POC | | [...] AMES | [address] | [place], [place] | | | [facility] | [address] | [address] | | | TESTS | | | | + + + + + CHLORIDE (ART)VALERIE (11/06/2012 11:08 AM PDT) + +-------+ [...] [facility] | [address] | [place], [place] | | | [facility] OF [place] | [address] | [address] | | | TESTS | | | [...] [facility] | [address] | [place], [place] | | | [facility] | [facility] | [address] | | | TESTS | | | [...] AMES | [address] | [place], [place] | | | [facility] | [address] | [address] | | | TESTS | | | [...] [facility] | [address] | [place], [place] | | | [facility] OF [place] | [address] | [address] | | | TESTS | | | [...] - [facility] | [address] | [place], [place] | | | [facility] | [facility] | [address] | | | TESTS | | | [...] + + + + + | [facility] | [address] | [place] [address] | | | CLAIER, | [address] | | | | [...] [facility] | [address] | [place], [place] | | | [facility] | [facility] | [address] | | | TESTS | | | [...] [facility] | [address] | [place] [address] | | | SERVICES, | [address] [...] [facility] | [address] | [place] [address] | | | SERVICES, | [address] [...] + + + + | [facility] | [address] | [place] [address] | | | SERVICES, CORE | [address] | | | + + + + + PHOSPHORUS, PLASMA (11/06/2012 6:28 AM PDT) + +-------+ + + + | Component | Value | Ref Range | Performed | Pathologist | | | | | At | Signature | + +-------+ + + + | PHOSPHORUS, | 3.2 | 2.4 - 4.7 mg/dL | [facility] | | | PLASMA | | | [...] + + + + + | [facility] | [address] | [place] [address] | | | SERVICES, CORE | [address] | | | + + + + + MAGNESIUM, PLASMA (11/06/2012 6:28 AM PDT) + +---------+ + + + | Component | Value | Ref Range | Performed | Pathologist | | | | | At | Signature | + +---------+ + + + | MAGNESIUM,P | 1.7 (L) | 1.8 - 2.5 mg/dL | [facility] | | | PRASHANTMA | | | [...] + + + + | [facility] | [address] | [place] [address] | | | SERVICES, CORE | [address]ARENCE [...] + + + + | [facility] | [address] [facility] | [place] [address] | | | SERVICES, LYDIA | [address] [...] | | | LABORATORY | | | NOR[place]GIAN | | | SERVICES, | | | [...] + + + + + | [facility] | [address] | [place] [address] | | | SERVICES, CORE | P[address] [...] + + + | Please click | [facility] | | on view image for the detailed interpretation from [employer] results. | CARDIOLOGY | + + + + + + + + | Performing | Address | City/State/Zipcode | Phone Number | | Organization | | | | + + + + + | [facility] | [address] | [place], [place] | | | CARDIOLOGY | [address] | [address] | | + + + + + [...] [facility] | [address] | [place] [address] | | | SERVICES, CORE | [address] | | | + + + + + UA, MADAY ONLY (11/06/2012 4:51 AM PDT) + + [...] [facility] | [address] | [place] [address] | | | SERVICES, LYDIA | [address] | | | + + + + + documented in this encounter Visit Diagnoses + + | Diagnosis | + + | Hernia - Primary Hernia of unspecified site of abdominal cavity without mention of | | obstruction or gangrene | + + | Morbid obesity (HCC) [...] | 1 tablet | | | | uirqkwjtod-erxelbpzqohup-qzooyjzs | | 13 8:02 | | | [...] NS (aka PEPCID) | New Bag | 04/17/20 | 20 mg | 200 | | [...] 13 7:36 | | | | | POWER DRIVEN BRUSH MAKER infusion intravenous, | | PM PDT | [...] PDT | | | | | Until 4/13/13 at 1423 | | | | | [...] PDT | | | | | Until [facility] 11/11/12 at 0702 | | | | [...] 11/13/19 | 1 | | | | (aka CULTURELLE) capsule 1 Cap 1 | | 13 [...] | | | | | NEEDED, Starting [facility] 11/10/12 at | | | | | | | 1404, Until [facility] 11/11/12 at 0721, | | | | [...] | 2 | | | | (aka LISAA-PHOJacy, NICOLE-TERRY) | | 13 12:13 | packets | [...] | | | 20 mEq, intravenous, ONCE, | | 13 3:33 | | | | | dose, 11/07/12 at 0330 | | AM PDT | | | | + +---------+ +--------+--------+---+ +---+---+ | | | +---+---+ + +---------+ +--------+--------+---+ | potassium chloride IV 40 mEq | New Bag | 11/07/19 | 40 mEq | mL/hr | | | 40 mEq, intravenous, ONCE, | | 5:12 | | | | | dose, [...] + + + + +--------+---+ | propofol (jack PATTERSON) | Restarte | 11/07/19 | 30 | [...] +---+---+ + +-------+ + +---+---+ | senna-docusate (albertseven VIMAL S) | Given | 11/13/19 | 1 [...]
--- OUTSIDE RECORDS SUMMARY | ~2020-04-17 | XMS | Encounter Summary ---
Demographics + + + | Address | [address] | | | [place] [address] | + + + | Home Phone [...] [place], [place] | | | | | [address] | | + + + + + | Ellie Vang | ECON | Unknown | | + + + + + Care Team Providers + +------+ + | Care Lens Maker Name | Role | Phone | [...] Randell | | | | | | [address] | [address] | | | | | [address] | [address] | | | | | | [address] | [place], [place] | | | | | | [place], [place] | [address] | | | | | | [address] | Phone: | | | | | | Phone: | [phone] | | | | | | [phone] | Fax: | | | | | | Fax: | [phone] | | | | | | [phone] | | +--------+--------+ + + + + Encounter Details +--------+---------+ + + + | Date | Type | Department | Care Team | Description | +--------+---------+ + + + | 08/29/ | Office | Cardiology | Randell Franks, | HTN (hypertension) | | 2013 | Visit | Preventive at [facility] | MD [address] | (Primary Dx); Type 2 | | | | [address] | [place], [place]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 | | | | [facility] | [address] | ([facility]); Morbid | | | | and Healing, | [phone] | obesity (HCC) | | | | [address] | | | | | | [place], [place] | | | | | | [address] | | | | | | [phone] | | | +--------+---------+ + + + [...] by Randell Franks MD at 12:44 PM Briana Soriano - 08/29/2013 11:23 AM PSTWaist circumference: 66.5 inches documented in th is encounter Plan of Treatment +--------+---------+ + + + | Date | Type | Specialty | Care Team | Description | +--------+---------+ + + + | 06/08/ | Office | Plastic Surgery | Antoinette Hale, | | | 2019 | Visit | | [address] | | | | | | [address] | | | | | | [place], [place] | | | | | | [address] | | | | | | [phone] | | | | | | | [...]
--- OUTSIDE RECORDS SUMMARY | ~2020-04-17 | XMS | Encounter Summary ---
Demographics + + + | Address | [address] | | | [place] [address] | + + + | Home Phone | | + + + | Preferred Language | Unknown | + + + | Marital Status | | + + + | Adventist Affiliation | Unknown | + + + [...] + +------+ + | Care Director Of Strategic Partnerships Name | Role | Phone | + +------+ + PCP | Unavailable | + +------+ + Encounter Details +--------+ + + + + | Date | Type | Department | Care Team | Description | +--------+ + + + + | // | Orders Only | [facility] | Dharmesh Escobar, | | | 2018 | | NEPHROLOGY [place] | DIRECTOR OPERATIONS [address] | | | | [address] | [address] | | | | | [address] [place], [place] | [place] | | | | | [address] | [address] | | | | | [phone] | [phone] | | | | | | | [...] D | | | | | | [place] [address] | | | | | | [phone] | | | | | | | [...] | | | LAB | | | [place] | | | | | + +---------+ [...]
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
--- OUTSIDE RECORDS SUMMARY | ~2020-04-17 | XMS | Encounter Summary ---
Demographics + + + | Address | [address] | | | [place] [address] | + + + | Home Phone [...] [place], [place] | | | | | [address] | | + + + + + | Ellie Vang | ECON | Unknown | | + + + + + Care Team Providers + +------+ + | Care Ski Tow Operator Name | Role | Phone | + +------+ + | Kenyatta Cardenas MD | PCP | | + +------+ + Reason for Visit + +--------+ + | Reason | Onset | Comments | | | Date | | + +--------+ + | Pre-op evaluation | 07/29/ | | | | 2020 | | + +--------+ + Encounter Details +--------+ + + + + | Date | Type | Department | Care Team | Description | +--------+ + + + + | 07/29/ | Telephone-S | Preoperative | | Pre-op evaluation | | 2020 | [facility] | Medicine Clinic at | | | | | | [facility] | | | | | | [address] | | | | | | [facility] | | | | | | and Healing, | | | | | | [address] | | | | | | [place], [place] | | | | | | [address] | | | | | | [phone] | | | +--------+ + + + + Anesthesia Record + + + + + | Procedure Name | Responsible | Anesthesia Start | Anesthesia Stop Time | | | Anesthesiologist | Time | | + + + + + | OPEN VENTRAL HERNIA | Andie Hope MD | 08/19/19 1417 | 08/19/19 8315 | | REPAIR (N/A ) | | [...] by | 08/20/19 0955 by | | al | Magui; 16 Fr.; 10 mL; 08/20/19; [...] | | | POLINA Ladd; Endotracheal | POLINA | CRANKSHAFT GRINDER | | | Tube; 7.5; Oral; Cuffed; [...] of this encounter Patient Instructions Patient Instructions Alexia Hector RN - 07/29/2019 3:25 PM PST PREOPERATIVE INSTRUCTIONS Surgery check-in location: [facility] Surgery Check in Time: you will receive a call 1-3 business days before your surgery confi rming your exact arrival/check-in time for your surgery day. We know that planning for surg eileen can be stressful and involve a lot of family/friend/transportation coordination as well as hotel arrangements. The [facility] does not [facility], and we encourage you to contact your surgeon's office for any assistance planning andrezun d a tentative arrival time. Empty stomach before surgery On the day [...] following medications with a sip of water: THYROID (PORK) 30 MG TABLET PAROXETINE 40 MG TABLET LURASIDONE 20 MG TABLET ATENOLOL 50 MG TABLET ALPRAZOLAM 1 MG TABLET On the morning of surgery DO NOT TAKE the following medications: Other medications not specifically mentioned are at your discretion as to taking or not taking on the morning of surgery. ACETAMINOPHEN 500 MG TABLET ASCORBIC ACID (VITAMIN C) 500 MG TABLET CALCIUM [id number] ORAL CYANOCOBALAMIN (VIT B-12) 1,000 MCG TABLET STOOL SOFTENER ORAL DOXYCYCLINE HYCLATE 100 MG TABLET ERGOCALCIFEROL (VITAMIN D2) 1,250 MCG (50,000 UNIT) CAPSULE FERROUS GLUCONATE 324 MG (36 MG IRON) TAB (MG DOSING UPDATE) LOPERAMIDE 2 MG CAPSULE MAGNESIUM OXIDE 400 MG (241.3 MG MAGNESIUM) TABLET MECLIZINE 12.5 MG TABLET METOCLOPRAMIDE 10 MG TABLET MULTIVITAMIN TABLET (THERAPEUTIC) HAIR,SKIN AND NAILS ORAL NYSTATIN 100,000 UNIT/GRAM TOPICAL POWDER OXYCODONE 5 MG TABLET PHENTERMINE 37.5 MG TABLET POLYETHYLENE GLYCOL 3350 17 GRAM ORAL POWDER PACKET POTASSIUM CHLORIDE 20 MEQ ORAL PACKET PRAMIPEXOLE 0.125 MG TABLET PROCHLORPERAZINE MALEATE 10 MG TABLET PROMETHAZINE 25 MG TABLET RIZATRIPTAN 5 MG TABLET SENNOSIDES 8.6 MG TABLET SPIRONOLACTONE 50 MG TABLET TOPIRAMATE 50 MG TABLET TORSEMIDE 100 MG TABLET WARFARIN 5 MG TABLET--to get guidance from PCP Unless otherwise directed by your surgeon, do not take any Aspirin, fish oil supplement s, vitamin E or non-steroidal anti-inflammatory (NSAIDs i.e. Advil, Aleve, Ibuprofen) or her bal supplements 7 days prior to your surgery. These drugs may interfere with normal blood cl otting and may cause excessive bleeding and bruising during or after the surgery. If you are taking Coumadin (warfarin), Plavix or any other blood thinners please let y our surgical team know as medication changes may be necessary If you need a pain medication for general purposes, use Tylenol as directed. OK to take it even on the morning of surgery, if needed. If you are in doubt about any medications that you are taking, please contact our office . Other Important Guidelines ? Do not shave the surgical area ? Do not wear tampons on the day of the procedure ? Do not smoke, drink alcohol or use recreational drugs for 24 hours before your surgery Watch for any change in your health condition. Let your surgeon know right away if you do not feel well--this includes calling if you think you are developing a "cold" in the days before your surgery. ? Do not wear makeup, perfume, lotions, deodorant, powder or hairspray. Do not wear any jewelry to the hospital. Wear loose, comfortable clothing. Leave all your valuables at home. Allow enough travel time so you re not late for your check in for surgery. ? Take a bath or shower and remember to shampoo your hair using your usual hair product be fore your arrival at the hospital ? Please remember to brush your teeth the night before and the morning of your procedure. Preventing post op complications while you are [...] help stimulate normal circulation and deep breathing. Going Home Your surgical team will decide when you are medically ready to go home. If you are released to go home on the same day as your procedure/surgery please note th e following: You will not be able to drive yourself A responsible adult MUST escort you home. You may not drive yourself Your responsible adult can drive you or they can accompany you in a taxi, ride share (vinson ch as Uber/Lyft), or public transportation. An Uber/Lyft/local city driver does not count as the responsible adult who accompanies you. Certified Medical Transport can transport you after surgery as long as a competent adult is waiting for you on arrival at your destination Although not mandatory, it is highly recommended that a patient has a responsible person with you to provide overnight monitoring/support following discharge. It IS required that you have a competent person assist you and look after you on the rst night after you have undergone regional blocks (72 hours for patients going home with re gional block pump) If you stayed in the hospital after surgery, please discuss anticipated discharge time and plans with your inpatient team so that transportation plans and other going home arrange ments can be coordinated If you have questions or concerns after you go home, call your doctor s office. If it is after office hours, call the [facility] cap lining machine operator at [phone] and ask them to page him or h er. documented in this encounter Miscellaneous Notes Telephone Encounter - Alexia Hector RN - 07/29/2019 3:25 PM PSTPhone appointment compl eted as scheduled. Documentation to be found in the Notes and Trans Encounter tab in [employer]. Aug 04, 2019--received message from Nicole at Dr Jorje Hill's office. Pt will be instru cted to stop coumadin and bridge with Lovenox. Nicole will communicate directly with [facility] regarding bridge procedure. documented in this en counter Plan of Treatment +--------+---------+ + + + | Date | Type | Specialty | Care Team | Description | +--------+---------+ + + + | 06/08/ | Office | Plastic Surgery | Antoinette Hale, | | 2019 | Visit | | [address] | | | | | | [address] | | | | | | [place], [place] | | | | | | [address] | | | | | | [phone] | | | | | | | | +--------+---------+ + + + documented as of this encounter Visit Diagnoses Not on filedocumented in this encounter
--- OUTSIDE RECORDS SUMMARY | ~2020-04-17 | XMS | Encounter Summary ---
Demographics + + + | Address | [address] | | | [place] [address] | + + + | Home Phone [...] + + + | Author | [facility] | | | and Jeffana | + + + | Organization | [facility] | | [...] Team Providers + +------+ + | Care Navy Diver Name | Role | Phone | + [...] Closed | | Radiology | Diagnoses | [place], | [facility] | | | | | Deep vein | Dharmesh | Intra Op [address] | | | | | thrombosis | MD Natan | [address] | | | | | (DVT) of | [address] | [place], [place] | | | | | left lower | [address] | [address] | | | | | extremity, | [address] | Phone: | | | | | unspecified | [place], [place] | [phone] | | | | | chronicity, | [id number] | Fax: | | | | | unspecified | Phone: | [phone] | | | | | vein (HCC) | [phone] | | | | | | Procedures | Fax: | | | | | | IR Removal | [phone] | | | | | | Fibrin [...] | | (DVT) of | [address] | [place], [place] | | | | | left lower | [address] | [address] | | | | | extremity, | [address] | Phone: | | | | | unspecified | [place], [place] | [phone] | | | | | chronicity, | [id number] | Fax: | | | | | unspecified | Phone: | [phone] | | | | | vein (HCC) | [phone] | | | | | | Procedures | Fax: | | | | | | IR Removal | [phone] | | | | | | Fibrin | | | | | | | Sheath/Clot | | | | | | | on Device | | | +--------+--------+ + + + + Encounter Details +--------+ + + + + | Date | Type | Department | Care Team | Description | +--------+ + + + + | 06/22/ | Hospital | [facility] | Dharmesh Melchor | Deep vein thrombosis | | 2019 | Encounter | CENTER CV INTRA OP | MD Natan [address] | (DVT) of left lower | | | | [address] | [address] | extremity, | | | | [place], [place] | [place] [address] | unspecified | | | | [address] | [phone] | chronicity, | | | | [phone] | | unspecified vein | | | | | Christian Dawson MD | (HCC) | | | | | [address] | | | | | | [place], [place] | | | | | | [address] | | | | | | | [...] notice any of the signs, contact the [facility] at between 8:00 am and 5:00 pm, [...] | | 0 | | | | Beyedfd-Maekpvbxe-Kx | mouth 2 times daily. | | [...] | | 20 mEq CR tablet | 2 times daily . | | | | | + + [...] + + +---------+ + + | thyroid (BLOOD BANK TECHNICIAN | BLOOD BANK TECHNICIAN Thyroid 30 mg | | 0 [...] 7 days. | | | 18 | 0 | | units capsule | | | | | | + + + +---------+ + + | ferrous gluconate | Take 324 mg by | | 0 | | | | (FERGON) 324 mg | mouth. | | | | 0 | | [...] MG | daily. | | | | 0 | | [...] + documented as of this encounter Progress Sheree Hummel RN - 06/22/2019 10:00 AM PSTD/C instructions [...] 10:17 AM PSTdocumented in this encounter H&P Christian Booth, MD - 06/22/2019 10:00 AM PSTFormatting of [...] right ventricular diastolic dysfunction (HCC) 10/26/2015 Overview: [facility] Last Assessment & Plan: Patient with morbid [...] o besity Pickwickian syndrome Recent admission to [facility] for 100lb weight gain- DC on diuresis on 03/06/2016- she feel improved She was on Metolazone and Torsem javier prior to hospitalization- both have better bioavailability than lasix in gut edema but s he retained 100lbs - how ever she Decreased mobility 06/16/2013 Deep vein thrombosis (DVT) of left lower extremity ([facility]) 10/26/2015 Last Assessment & Plan: Diagnosed in 10/2015, at that time had presumed PE. Started on war farin, presented with INR of 2.8 (making recurrent PE less likely). -continue warfarin per p collins, I would recommend life long therapy but will defer her to PCP Overview: LE Doppler (Nov 07, 2015 ++ DVT LLE The left mid and distal femoral vein and popliteal vein are non compressible with hypoechoic clot w Diabetes mellitus type 2 without retinopathy ([facility]) 04/14/2013 Diabetes mellitus with insulin therapy ([facility]) 12/27/2014 DM (diabetes mellitus) ([facility]) 05/09/2016 Overview: A1c 5.29 Aug 2014 [...] with morbid obesity, she is enrolled in [facility] bariatric program. She has lost [...] Plan: TSH WNL 10/2015. She is on curtis thyroid as OP. -TSH WNL -continu e supplementation here Hypoventilation associated with obesity (HCC) 06/16/2013 Last Assessment & Plan: [facility] Bariatric Program, has lost 50lbs. STEFANO (iron deficiency anemia) 02/03/2019 Overview: Presumed due to menses. Venofer 200 qd x 30 October 2015 [facility] Last Assessment & P sharon: Hgb appears to run -11 in review of records. No concerns of [...] Diagnosis: RUE DVT Post OP Diagnosis: Same Drilling Engineer: Christian Dawson MD/PhD Anesthesia Type: No sedation [...] D | | | | | | [place] [address] | | | | | | [phone] | | | | | | | [...] + + | Performing | Address | City/State[facility] | Phone Number | | Organization [...]
--- OUTSIDE RECORDS SUMMARY | ~2020-04-17 | XMS | Encounter Summary ---
Demographics + + + | Address | [address] | | | [place] [address] | + + + | Home Phone [...] + | Katalina Padilla | ECON | [address] | | | | | [place], [place] | | | | | [address] | | + + + + + | Ellie Vang | ECON | Unknown | | + + + + + Care Team Providers + +------+ + | Care Prover Name | Role | Phone | + [...] floor | | | | | | [place], [place] | | | | | | [address] | | | +--------+ + + + [...] | | 2019 | Visit | | [address] | | | | | | [address] | | | | | | [place], [place] | | | | | | [address] | | | | | | [phone] | | | | | | | | +--------+---------+ + + + documented as of this encounter Visit Diagnoses Not on filedocumented in this encounter"
--- OUTSIDE RECORDS SUMMARY | ~2020-04-17 | XMS | Encounter Summary ---
Demographics + + + | Address | [address] | | | [place] [address] | + + + | Home Phone | | + + + | Preferred Language | Unknown | + + + | Marital Status | | + + + | Jain Affiliation | Unknown | + + + | Race | White | + + + | Ethnic Group | Not or | + + + Author + + + | Author | [facility] | | | and Jeffana | + + + | Organization | [facility] | | | and [...] Team Providers + +------+ + | Care Recordings Librarian Name | Role | Phone | + +------+ + PCP | Unavailable | + +------+ + Encounter Details +--------+ + + + + | Date | Type | Department | Care Team | Description | +--------+ + + + + | 08/31/ | Hospital | [facility] | Erich Wells | | | 2003 | Encounter | MED CTR SLEEP | MD Michael [address] | | | | | [place] [address] | [address] [facility] | | | | | [place], [place] | [place] [address] | | | | | [address] | [phone] | | | | | [phone] | | | +--------+ + + + [...] | | | | | [place] [address] | | | | | | [phone] | | | | | | | | +--------+ + + + + documented as of this encounter Visit Diagnoses Not on filedocumented in this encounter"
--- OUTSIDE RECORDS SUMMARY | ~2020-04-17 | XMS | Encounter Summary ---
Demographics + + + | Address | [address] | | | [place] [address] | + + + | Home Phone | | + + + | Preferred Language | Unknown | + + + | Marital Status | | + + + | Zoroastrian Affiliation | Unknown | + + + | Race | White | + + + | Ethnic Group | Not or | + + + Author + + + | Author | [facility] | | | and Jeffana | + + + | Organization | [facility] | | | and [...] + +------+ + | Care Director Of Admissions Name | Role | Phone | + +------+ + PCP | Unavailable | + +------+ + Encounter Details +--------+ + + + + | Date | Type | Department | Care Team | Description | +--------+ + + + + | 02/14/ | Orders Only | [facility] | Augustine Fu MD | | | 2015 | | NEPHROLOGY [place] | [address] [place] | | | | | [address] | [address] [place], [place] | | | | | [place] | [address] | | | | | [address] | | | | | | [phone] | | | +--------+ + + + [...] D | | | | | | [place] [address] | | | | | | [phone] | | | | | | | [...]
--- OUTSIDE RECORDS SUMMARY | ~2020-04-17 | XMS | Encounter Summary ---
Demographics + + + | Address | [address] | | | [place] [address] | + + + | Home Phone [...] [place], [place] | | | | | [address] | | + + + + + | Ellie Vang | ECON | Unknown | | + + + + + Care Team Providers + +------+ + | Care Laundry Assistant Name | Role | Phone | [...] | 2012 | on | Center at [facility] [address] | [address] | | | | | [address] [facility] | [facility] [address] | | | | | for Health and | [place], [place] | | | | | [facility] 2 | [address] | | | | | [place], [place] | [phone] | | | | | [address] | | | | | | [phone] | | | +--------+ + + + [...] | | 2019 | Visit | | [address] | | | | | | [address] | | | | | | [place], [place] | | | | | | [address] | | | | | | [phone] | | | | | | | | +--------+---------+ + + + documented as of this encounter Visit Diagnoses Not on filedocumented in this encounter"
--- OUTSIDE RECORDS SUMMARY | ~2020-04-17 | XMS | Encounter Summary ---
Demographics + + + | Address | [address] | | | [place] [address] | + + + | Home Phone [...] Team Providers + +------+ + | Care News Content Specialist Name | Role | Phone | + +------+ + | Jorje Hill | PCP | | + +------+ + Encounter Details +--------+ + + + + | Date | Type | Department | Care Team | Description | +--------+ + + + + | 06/17/ | Telephone | [facility] | Christian Dawson, | | | 2018 | | CENTER CV INTRA OP | [address] | | | | | [address] | [place], | | | | | [place], [place] | [place] [address] | | | | | [address] | [phone] | | | | | [phone] | | | +--------+ + + + [...] Camille De La Paz, | | | 2020 | visit | | MD [address] | | | | | | [address] | | | | | | [place] [address] | | | | | | [phone] | | | | | | | | +--------+ + + + + documented as of this encounter Visit Diagnoses Not on filedocumented in this encounter"
--- OUTSIDE RECORDS SUMMARY | ~2020-04-17 | XMS | Encounter Summary ---
Demographics + + + | Address | [address] | | | [place] [address] | + + + | Home Phone [...] [place], [place] | | | | | [address] | | + + + + + | Ellie Vang | ECON | Unknown | | + + + + + Care Team Providers + +------+ + | Care Signalman Name | Role | Phone | + +------+ + | Fadi Goodrich DO | PCP | | + +------+ + Encounter Details +--------+ + + + + | Date | Type | Department | Care Team | Description | +--------+ + + + + | 12/31/ | Abstract | [facility] | Hernandez Brian, | | | 2012 | | [place] [address] [address] | [address] [facility] | | | | | [address] [facility] | [facility] | | | | | for [facility] and | [place], [place] | | | | | [facility] 2 | [address] | | | | | [place], [place] | [phone] | | | | | [address] | | | | | | [phone] | | | +--------+ + + + [...] | | 2019 | Visit | | [address] | | | | | | [address] | | | | | | [place], [place] | | | | | | [address] | | | | | | [phone] | | | | | | | | +--------+---------+ + + + documented as of this encounter Visit Diagnoses Not on filedocumented in this encounter"
--- OUTSIDE RECORDS SUMMARY | ~2020-04-17 | XMS | Encounter Summary ---
Demographics + + + | Address | [address] | | | [place] [address] | + + + | Home Phone [...] + | Katalina Padilla | ECON | [address] | | | | | [place], [place] | | | | | [address] | | + + + + + | Ellie Vang | ECON | Unknown | | + + + + + Care Team Providers + +------+ + | Care Shake Table Operator Name | Role | Phone | [...] | 2020 | Visit | Center at [facility] [address] | MD Jones [address] | (Primary Dx) | | | | S [facility] | [facility] | | | | | [facility] and | [place], [place] | | | | | [facility] 2 | [address] | | | | | [place], [place] | [phone] | | | | | [address] | | | | | | [phone] | | | +--------+---------+ + + + [...] recommend you go to the ED in [place] for workup of pulmonary embolism. I will [...] check. Of note, she was admitted to [facility] 09/02/2019 - 09/04/2019 for a large wound [...] Recommended patient present to the ED in [place] for workup of pulmonary embolism Will call [facility] to let them know she will arrive soon. Follow up in 3 months and PRN, but call with any questions or concerns. I am Kyrie Warren functioning as a scribe for Jones Woo MD at 2:20 PM on 09/08/2019 I have reviewed and verified the above scribed note of my visit with this patient as record ed by Kyrie Warren. JONES WOO MD [facility] [address] [facility] Mailcode: [place] [address] documented in this encounter Plan of Treatment +--------+---------+ + + + | Date | Type | Specialty | Care Team | Description | +--------+---------+ + + + | 06/08/ | Office | Plastic Surgery | Hale Antoinette, | | | 2019 | Visit | | [address] | | | | | | [address] | | | | | | [place], [place] | | | | | | [address] | | | | | | [phone] | | | | | | | | +--------+---------+ + + + documented as of this encounter Visit Diagnoses + + | Diagnosis | + + | Postop check - Primary Follow-up examination, following unspecified surgery | + + documented in this encounter
--- OUTSIDE RECORDS SUMMARY | ~2020-04-17 | XMS | Encounter Summary ---
Demographics + + + | Address | [address] | | | [place] [address] | + + + | Home Phone [...] + | Katalina Padilla | ECON | [address] | | | | | [place], [place] | | | | | [address] | | + + + + + | Ellie Vang | ECON | Unknown | | + + + + + Care Team Providers + +------+ + | Care Sql Server Architect Name | Role | Phone | + +------+ + | Fadi Goodrich DO | PCP | | + +------+ + Encounter Details +--------+ + + + + | Date | Type | Department | Care Team | Description | +--------+ + + + + | 03/02/ | Abstract | [facility] | Hernandez Brian, | | | 2012 | | [place] [address] [address] | [address] [facility] | | | | | [address] [facility] | [facility] | | | | | for [facility] and | [place], [place] | | | | | [facility] 2 | [address] | | | | | [place], [place] | [phone] | | | | | [address] | | | | | | [phone] | | | +--------+ + + + [...] | | 2019 | Visit | | [address] | | | | | | [address] | | | | | | [place], [place] | | | | | | [address] | | | | | | [phone] | | | | | | | | +--------+---------+ + + + documented as of this encounter Visit Diagnoses Not on filedocumented in this encounter"
--- OUTSIDE RECORDS SUMMARY | ~2020-04-17 | XMS | Encounter Summary ---
Demographics + + + | Address | [address] | | | [place] [address] | + + + | Home Phone [...] + | Katalina Padilla | ECON | [address] | | | | | [place], [place] | | | | | [address] | | + + + + + | Ellie Vang | ECON | Unknown | | + + + + + Care Team Providers + +------+ + | Care Occupational Therapist Per Diem Name | Role | Phone | + +------+ + | Fadi Goodrich DO | PCP | | + +------+ + Encounter Details +--------+------+ + + + | Date | Type | Department | Care Team | Description | +--------+------+ + + + | 11/20/ | Lab | Laboratory at [facility] | | Morbid obesity with | | 2017 | | [address] | | BMI of 70 and over, | | | | [facility] | | adult ([facility]); | | | | and Healing, | | Diabetes mellitus | | | | Building [address] | | 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[place], [place]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 ([facility]); | | | | [address] | | Type 2 diabetes | | | | [phone] | | mellitus without | | | | | | complication, with | | | | | | long-term current | | | | | | use of insulin ([facility]) | +--------+------+ + + + [...] [address] | | | | | | [place], [place] | | | | | | [address] | | | | | | [phone] | | | | | | | [...] | | | PDT | over, adult ([facility]) | results section. | | | | | Diabetes mellitus | | | | | | 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 ([facility]) | | + +--------+ + + + | VITAMIN B1, WHOLE | Routin | 11/20/2017 | Morbid obesity | Results for this | | BLOOD | e | 10:01 AM | with BMI of 70 and | procedure are in the | | | | PDT | over, adult ([facility]) | results section. | | | | | Diabetes mellitus | | | | | | 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 ([facility]) | | + +--------+ + + + | VITAMIN D, | Routin | 11/20/2017 | Morbid obesity | Results for this | | 25-HYDROXY, SERUM | e | 10:01 AM | with BMI of 70 and | procedure are in the | | | | PDT | over, adult ([facility]) | results section. | | | | | Diabetes mellitus | | | | | | 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 ([facility]) | | + +--------+ + + + | COMPLETE METABOLIC | Routin | 11/20/2017 | Morbid obesity | Results for this | | SET | e | 10:01 AM | with BMI of 70 and | procedure are in the | | (NA,K,CL,CO2,BUN,CRE | | PDT | over, adult ([facility]) | results section. | | AT,GLUC,CA,AST,ALT,B | | | Diabetes mellitus | | | MARGIE TOTAL,ALK | | | type 2 without | | | PHOS,ALB,PROT TOTAL) |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 ([facility]) | | + +--------+ + + + | CBC ONLY | Routin | 11/20/2017 | Morbid obesity | Results for this | | | e | 10:01 AM | with BMI of 70 and | procedure are in the | | | | PDT | over, adult ([facility]) | results section. | | | | | Diabetes mellitus | | | | | | 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 ([facility]) | | + +--------+ + + + | FERRITIN | Routin | 11/20/2017 | Morbid obesity | Results for this | | | e | 10:01 AM | with BMI of 70 and | procedure are in the | | | | PDT | over, adult ([facility]) | results section. | | [...] | | | PDT | over, adult ([facility]) | results section. | | | | | Diabetes mellitus | | | | | | 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 ([facility]) | | + +--------+ + + + | VITAMIN B-12 | Routin | 11/20/2017 | Morbid obesity | Results for this | | | e | 10:01 AM | with BMI of 70 and | procedure are in the | | | | PDT | over, adult ([facility]) | results section. | | | | | Diabetes mellitus | | | | | | 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 ([facility]) | | + +--------+ + [...] [facility] | [address] | [place] [address] | | | [facility] | | | | | HEALTH + [...] | + + + + + | [place] | [address] | [place], [place] | | | SERVICES, LIPID | [address] | [address] | | + + + + + [...] | | considered for monitoring long wall mining machine tender glycemic control in patients with: | LABORATORY [...] [facility] | [address] | [place] [address] | | | SERVICES SPECIAL | [address] | | | [...] | | | | | determined by [facility] | | | | | | Laboratories. See | | | | | | Compliance Statement B: | | | | | | Zarpo/CSPerformed | | | | | | by [facility],[address] | | | | | | Natalia Martinez [facility] | | | | | | [address] | | | | | | [phone]. | | | | | | Ismael [...] [facility] | [address] | [place], [place] | | | [facility] | | [address] | | + + + + + [...] MDRD equation recommended by the | [facility] | | National Kidney Disease [...] | [facility] | [address] | [place] [address] | | | LYDIA RANGEL | [address] [...] [facility] | [address] | [place] [address] | | | SERVICES, CORE | [address] [...] | + + + + + | [facility] | [address] | [place] [address] | | | SERVICES, LYDIA | [address] [...] | + + + + + | [facility] | [address] | [place] [address] | | | SERVICES, CORE | [address] [...] [facility] | [address] | [place] [address] | | | SERVICES, CORE | PARK [...] | + + + + + | [facility] | [address] | [place] [address] | | | SERVICES, CORE | [address] [...]
--- OUTSIDE RECORDS SUMMARY | ~2020-04-17 | XMS | Encounter Summary ---
Demographics + + + | Address | [address] | | | [place] [address] | + + + | Home Phone [...] + | Katalina Padilla | ECON | [address] | | | | | [place], [place] | | | | | [address] | | + + + + + | Ellie Vang | ECON | Unknown | | + + + + + Care Team Providers + +------+ + | Care Casing Sewer Name | Role | Phone | + [...] | | 2017 | | Preventive at [facility] | MD [address] | | | | | [address] | [place], [place] | | | | | [facility] | [address] | | | | | and [place], | [phone] | | | | | [address] | | | | | | [place], [place] | | | | | | [address] | | | | | | [phone] | | | +--------+ + + + [...] Class: Requires Phone In Route: oral Order: [id number] elephone Encounter - Ellie Dumont - 06/15/2017 3:14 PM PSTPharmacy Preference: [facility] [place] - [address] Provider: Dr. Franks Medication phentermine 37.5 mg oral tablet How many days' worth of medication does patient have? Patient is out of medication If less than 2 days on hand, route as HIGH PRIORITY. Best number to reach patient today: [phone] ~~~ROUTE TO Drive[employer] MED REFILL ~~~ documented in this encounter Plan of Treatment +--------+---------+ + + + | Date | Type | Specialty | Care Team | Description | +--------+---------+ + + + | 06/08/ | Office | Plastic Surgery | Antoinette Hale, | | | 2019 | Visit | | [address] | | | | | | [address] | | | | | | [place], [place] | | | | | | [address] | | | | | | [phone] | | | | | | | | +--------+---------+ + + + documented as of this encounter Visit Diagnoses Not on filedocumented in this encounter"
--- OUTSIDE RECORDS SUMMARY | ~2020-04-17 | XMS | Encounter Summary ---
Demographics + + + | Address | [address] | | | [place] [address] | + + + | Home Phone [...] [place], [place] | | | | | [address] | | + + + + + | Ellie Vang | ECON | Unknown | | + + + + + Care Team Providers + +------+ + | Care Plug Wirer Name | Role | Phone | + +------+ + | Jorje Hill MD | PCP | | + +------+ + Encounter Details +--------+ + + + + | Date | Type | Department | Care Team | Description | +--------+ + + + + | 05/03/ | Inside | [facility] at [facility] | Ion Pandey, | | | 2018 | Referral | [facility] [address] | MD [address] | | | | Order | [address] for | [place], [place] | | | | | Health and Healing, | [address] | | | | | [address] | | | | | | [facility] [place] | | | | | | [address] | | | | | | [phone] | | | +--------+ + + + [...] | | 2019 | Visit | | [address] | | | | | | [address] | | | | | | [place], [place] | | | | | | [address] | | | | | | [phone] | | | | | | | | +--------+---------+ + + + +------+ +--------+ + + [...]
--- OUTSIDE RECORDS SUMMARY | ~2020-04-17 | XMS | Encounter Summary ---
Demographics + + + | Address | [address] | | | [place] [address] | + + + | Home Phone [...] + | Katalina Padilla | ECON | [address] | | | | | [place], [place] | | | | | [address] | | + + + + + | Ellie Vang | ECON | Unknown | | + + + + + Care Team Providers + +------+ + | Care Printer Helper Name | Role | Phone | + +------+ + | Kenyatta Cardenas MD | PCP | | + +------+ + Reason for Visit + +--------+ + | Reason | Onset | Comments | | | Date | | + +--------+ + | Treatment Planning | 04/01/ | | | | 2019 | | + +--------+ + Encounter Details +--------+ + + + + | Date | Type | Department | Care Team | Description | +--------+ + + + + | 04/01/ | Telephone | Digestive Health | Keren Allen, | Treatment Planning | | 2019 | | Center at [facility] [address] | [address] | | | | | [facility] | [place], [place] | | | | | [facility] and | [address] | | | | | [place] [address] | [phone] | | | | | [place], [place] | | | | | | [address] | | | | | | [phone] | | | +--------+ + + + [...] Telephone Encounter - Melissa Garay RN - 04/04/2019 4:11 PM PDTSpoke with Destiney and clarified to extend IV fluids 2 liters of LR 2-3 times per week through the end of the month . Also notified her of plan for visit with Dr. Woo re: ventral hernia. She states und erstanding and will follow up with patient. elephone Encounter - Eliane Carr - 04/04/2019 3:40 PM PDTSeryesenia mujica from [facility] called seeking additional information on IV extension Lync'd and transferred to RN elephone Encounter - Mayi Pacheco MA - 04/04/2019 2:28 PM PDTI spoke to the [facility] PCP office and they will let the covering provider know that fluids should be extended. They will call with further questions or concerns. elephone Encounter - Jorje Bacon - 04/01/2019 9:15 AM PDTPt called in has been having vomiting/diarrhea for the last 6 weeks Has been on a prescription for fluids for same time. Is still having symptoms As per PCP covering provider: ([facility] Prakash [facility]) Pt is still very dehydrated. Does she continue fluids? Can she get script re-newal? Does she need to come in for clinical appt? Script will run out next week. Seeks call back to discuss. documented in this encounte r Plan of Treatment +--------+---------+ + + + | Date | Type | Specialty | Care Team | Description | +--------+---------+ + + + | 06/08/ | Office | Plastic Surgery | Antoinette Hale, | | | 2019 | Visit | | [address] | | | | | | [address] | | | | | | [place], [place] | | | | | | [address] | | | | | | [phone] | | | | | | | | +--------+---------+ + + + documented as of this encounter Visit Diagnoses Not on filedocumented in this encounter"
--- OUTSIDE RECORDS SUMMARY | ~2020-04-17 | XMS | Encounter Summary ---
Demographics + + + | Address | [address] | | | [place] [address] | + + + | Home Phone [...] [place], [place] | | | | | [address] | | + + + + + | Ellie Vang | ECON | Unknown | | + + + + + Care Team Providers + +------+ + | Care Electron Tube Assembler Name | Role | Phone | + +------+ + | Fadi Goodrich DO | PCP | | + +------+ + Reason for Visit + +--------+ + | Reason | Onset | Comments | | | Date | | + +--------+ + | Refill Request | 10/29/ | phentermine 37.5 mg | | | 2015 | | + +--------+ + Encounter Details +--------+--------+ + + + | Date | Type | Department | Care Team | Description | +--------+--------+ + + + | 10/29/ | Refill | Cardiology | Randell Franks, | Refill Request | | 2015 | | Preventive at [facility] | MD [address] | (phentermine 37.5 mg | | | | [address] | [place], [place] | ) | | | | [facility] | [address] | | | | | and Healing, | [phone] | | | | | [address] | | | | | | [place], [place] | | | | | | [address] | | | | | | [phone] | | | +--------+--------+ + + + [...] Encounter - Corazon Alexis RN - 11/01/2015 2:20 PM PDTRefill phoned to phar macy elephone Encou nter - Corazon Alexis RN - 10/31/2015 8:40 AM PDTOverdue for follow up. Will route to provider to sign refill. Email also sent to provider requesting that he sign Rx. Electronica lly signed by Corazon Alexis RN at 10/31/2015 8:42 AM PDTTelephone Encounter - Varghese Mccullough MA - 10/31/2015 8:05 AM PDTFormatting of this note might be different from the origin al. Refill Request for: Requested Prescriptions Pending Prescriptions Disp Refills phentermine 37.5 mg oral tablet 90 tablet 1 Sig: Take 1 tablet by mouth once daily in the morning. Administer before breakfast. Patient Last Seen: Last Appointment in [facility] was on 04/03/15 at 10:40 am wit samantha Franks MD. Follow Up Plan: Next Appointment in [facility] is on 11/06/15 at 11:20 am with Jessica Franks MD. Please review and sign if appropriate elephone Encounter - Deepti Richardson - 10/30/2015 4:41 PM PDTPharmacy Preference: [facility] ([facility] nam e and location) Provider: Dr. Franks Medication phentermine 37.5 mg oral tablet How many days' worth of medication does patient have? Per patient she is out If less than 2 days on hand, route to MED REFILL POOL as HIGH PRIORITY. Other Relevant Information: Per patient the Pharmacy has faxed over a request twice and s he is no out of medication Best number to reach patient today: [phone] Best time to reach the patient is between Anytime and Its ok to lvm. ~~~ROUTE TO P CAR MED REFILL ~~~ If less than 2 days on hand, send as HIGH PRIORITY documented in this encoun ter Plan of [...] Rd | | | | | | [place], [place] | | | | | | [address] | | | | | | [phone] | | | | | | | | +--------+---------+ + + + documented as of this encounter Visit Diagnoses Not on filedocumented in this encounter"
--- OUTSIDE RECORDS SUMMARY | ~2020-04-17 | XMS | Encounter Summary ---
Demographics + + + | Address | [address] | | | [place] [address] | + + + | Home Phone [...] + | Katalina Padilla | ECON | [address] | | | | | [place], [place] | | | | | [address] | | + + + + + | Ellie Vang | ECON | Unknown | | + + + + + Care Team Providers + +------+ + | Care Erp Project Manager Name | Role | Phone | [...] Medicine Clinic at | DNP,ANP [address] | | | | | [facility] | [facility] | | | | | [address] | [place], [place] | | | | | [facility] | [address] | | | | | and Healing, | [phone] | | | | | [address] | | | | | | [place], [place] | | | | | | [address] | | | | | | [phone] | | | +--------+ + + + [...] documented as of this encounter Miscellaneous Notes Addendum Note - Gay Hoff DNP, ANP - 02/23/2018 1:05 PM PDTFormatting of this note mi ght be different from the original. Addendum created 02/23/18 1305 by Gay Hoff DNP, ANP Sign clinical note ddendum Note - Gay Hoff DNP, ANP - 02/22/2018 5:19 PM PDT Addendum created 02/22/18 3989 by Gay Hoff DNP, ANP Pend clinical note documented in th is encounter Plan of [...] Rd | | | | | | [place], [place] | | | | | | [address] | | | | | | [phone] | | | | | | | | +--------+---------+ + + + documented as of this encounter Visit Diagnoses Not on filedocumented in this encounter"
--- OUTSIDE RECORDS SUMMARY | ~2020-04-17 | XMS | Encounter Summary ---
Demographics + + + | Address | [address] | | | [place] [address] | + + + | Home Phone [...] Team Providers + +------+ + | Care Kettle Firer Name | Role | Phone | + +------+ + PCP | Unavailable | + +------+ + Encounter Details +--------+ + + + + | Date | Type | Department | Care Team | Description | +--------+ + + + + | 10/07/ | Orders Only | [facility] | Conversion | | | 2017 | | NEPHROLOGY [place] | Transaction, | | | | | [address] | Provider Unknown | | | | | [address] [place], [place] | | | | | | [address] | (Fax) | | | | | [phone] | | | +--------+ + + + [...] | | | | | [place] [address] | | | | | | [phone] | | | | | | | [...]
--- OUTSIDE RECORDS SUMMARY | ~2020-04-17 | XMS | Encounter Summary ---
Demographics + + + | Address | [address] | | | [place] [address] | + + + | Home Phone [...] + | Katalina Padilla | ECON | [address] | | | | | [place], [place] | | | | | [address] | | + + + + + | Ellie Vang | ECON | Unknown | | + + + + + Care Team Providers + +------+ + | Care Wood Sash And Frame Carpenter Name | Role | Phone | + [...] | HA Roldan, | | | with GIFT WRAPPER | | hypertension | [address] | [address] | | | | | Right | [address] | [address] | | | | | heart | [place], [place] | [facility] | | | | | failure | [address] | Rd [facility] | | | | | ([facility]) Type | Phone: | [place] | | | | | 2 diabetes | [phone] | [address] | | | | | mellitus | Fax: | Phone: | | | | | without | [phone] | [phone] | | | | | complication | | Fax: | | | | | , with | | [phone] | | | | | long-term | | | | | | | current use | | | | | | | of insulin | | | | | | | ([facility]) | | | +--------+ + + + + + Encounter Details +--------+---------+ + + + | Date | Type | Department | Care Team | Description | +--------+---------+ + + + | 04/01/ | Office | Digestive Health | Dione Andre, | History of Frandy-en-Y | | 2018 | Visit | Center at [facility] [address] | [address] [facility] | gastric bypass | | | | [facility] | [facility] [address] | (Primary Dx); | | | | for [employer] and | [place], [place] | Diabetes mellitus | | | | [facility], [facility] 2 | [address] | with insulin therapy | | | | [place], [place] | [phone] | ([facility]) | | | | [address] | | | | | | [phone] | | | +--------+---------+ + + + [...] as of this encounter Progress Notes Thai AH, Dione - 04/01/2018 10:30 AM PDTFormatting of this note might be different fro m the original. Nutrition Counseling: Post-op Bariatric Surgery Follow-Up Patient referred by: Randell Franks MD [address] [place] [address] Documented time of visit: 10:33 to 10:55 (22 minutes bchk-ow-kxbu with patient) Surgery: Gastric Bypass Date of [...] of 70 and over in adult ([facility]) Myalgia and myositis Nausea Neck pain Numbness Osteoarthritis of knee Palpitations Pneumonia Shortness of breath Staphylococcal infection Stroke (HCC) TIA (transient ischemic attack) due to Bromocriptine Tinea corporis UTI (urinary tract infection) Food logs: Yes-pen and paper Food choices: ground chicken, eggs, creamed soups (mushroom or tomato), cream of wheat occ, cottage cheese, croatian yogurt-light and fit, protein bar from [employer]. Unable to keep protei n shakes down. Fluid choices: water-4-5 bottles per day Supplementation: Flinstones, iron, vitamin D, vitamin C, Citracal supplement x 2 in the mor eusebio and 2 at night, magnesium, potassium, I17-[id number] today Assessment: Vomiting likely due to volume [...] multivitamin & mineral (with iron) supplement, 2/day -1603-2713 mg calcium citrate with vitamin D/day (take in divided doses, not within 2 hour s of multivitamin or iron supplement) -500 mcg/day sublingual B12 supplement (or monthly injections) Continued to reinforce importance of mindful eating. Continue to increase physical activity. Follow up in [address],LD Pager# [phone] Phone: [phone] documented in this en counter Plan of [...] Rd | | | | | | [place], [place] | | | | | | [address] | | | | | | [phone] | | | | | | | [...]
--- OUTSIDE RECORDS SUMMARY | ~2020-04-17 | XMS | Encounter Summary ---
Demographics + + + | Address | [address] | | | [place] [address] | + + + | Home Phone [...] [place], [place] | | | | | [address] | | + + + + + | Ellie Vang | ECON | Unknown | | + + + + + Care Team Providers + +------+ + | Care Psychologist Private Practice Name | Role | Phone | + [...] Medical Records | | 2013 | | [place] [address] [address] | [address] [facility] | Review ([facility] - | | | | [facility] | [facility] | OUTSIDE RECORDS) | | | | for Health and | [place], [place] | | | | | [place] [address] | [address] | | | | | [place], [place] | [phone] | | | | | [address] | | | | | | [phone] | | | +--------+ + + + [...] [place] | | | | | | [address] | | | | | | [phone] | | | | | | | | +--------+---------+ + + + documented as of this encounter Visit Diagnoses Not on filedocumented in this encounter"
--- OUTSIDE RECORDS SUMMARY | ~2020-04-17 | XMS | Encounter Summary ---
Demographics + + + | Address | [address] | | | [place] [address] | + + + | Home Phone [...] [place], [place] | | | | | [address] | | + + + + + | Ellie Vang | ECON | Unknown | | + + + + + Care Team Providers + +------+ + | Care Rn Resource Nurse Name | Role | Phone | [...] | | | | | bypass | [place], [place] | Health and | | | | | Nausea and | [address] | Healing, | | | | | vomiting, | Phone: | [address] | | | | | intractabili | | [place], [place] | | | | | ty of | Fax: | [address] | | | | | vomiting not | [phone] | Phone: | | | | | specified, | | [phone] | | | | | unspecified | | Fax: | | | | | vomiting | | [phone] | | | | | type | [...] | | | | | | DILATION [place] | | | | | | | UPPER GI | | | | | | | ENDOSCOPY,BI | | | | | | | OPSY MT UP | | | | | | [...] | | 2017 | | Center at [facility] [address] | MD [address] | | | | | [address] | [place], [place] | | | | | [facility] and | [address] | | | | | [facility] 2 | [phone] | | | | | [place], [place] | | | | | | [address] | | | | | | [phone] | | | +--------+ + + + [...] at a time. She went in to [facility] ED a few days ago [...] Rd | | | | | | [place], [place] | | | | | | [address] | | | | | | [phone] | | | | | | | [...]
--- OUTSIDE RECORDS SUMMARY | ~2020-04-17 | XMS | Encounter Summary ---
Demographics + + + | Address | [address] | | | [place] [address] | + + + | Home Phone | | + + + | Preferred Language | Unknown | + + + | Marital Status | | + + + | Lutheran Affiliation | Unknown | + + + | Race | White | + + + | Ethnic Group | Not or | + + + Author + + + | Author | [facility] | | | and [place] | + + + | Organization | [facility] | [...] Team Providers + +------+ + | Care Presentation Designer Name | Role | Phone | + +------+ + PCP | Unavailable | + +------+ + Encounter Details +--------+ + + + + | Date | Type | Department | Care Team | Description | +--------+ + + + + | 12/23/ | Orders Only | [facility] | Conversion | | | 2016 | | NEPHROLOGY [place] | Transaction, | | | | | [address] | Provider Unknown | | | | | [address] [place], [place] | | | | | | [address] | (Fax) | | | | | [phone] | | | +--------+ + + + [...] | | | | | [place] [address] | | | | | | [phone] | | | | | | | [...]
--- OUTSIDE RECORDS SUMMARY | ~2020-04-17 | XMS | Encounter Summary ---
Demographics + + + | Address | [address] | | | [place] [address] | + + + | Home Phone | | + + + | Preferred Language | Unknown | + + + | Marital Status | | + + + | Baptism Affiliation | Unknown | + + + | Race | White | + + + | Ethnic Group | Not or | + + + Author + + + | Author | [facility] | | | and [place] | + + + | Organization | [facility] | | | [...] Team Providers + +------+ + | Care Balance Truing Inspector Name | Role | Phone | [...] [address] | | | | | [place], [place] | [place] [address] | | | | | [address] | [phone] | | | | | [phone] | | | +--------+ + + + [...] | | | | | [place] [address] | | | | | | [phone] | | | | | | | [...] 0.61 m/s | | | MV Dec Pine: 2.43 m/s2 MV DecT: 247.51 ms MV E Jeffrey: 0.60 | | | m/s MV E/A Ratio: 0.98 MV PHT: 71.78 ms MVA By PHT: 3.06 | | | cm2 Septal e': 0.06 m/s Septal E/e': 9.54 Lateral e': 0.10 | | | m/s Lateral E/e': 5.84 RAP: 5 mmHg RV s': 0.11 m/s | | | Box Stacker: JESSICA Authenticated by: Darryl Merrill Report Date/Time: | | | 02-22-2019 20:8:36 | | + + + + --------+ | Procedure Note | + --------+ | Aditya, Rad Conversion - 03/17/2019 1:08 PM PDT Patient Name: Tiny Cristina of | | : 1975 Performing Physician: Darryl | | [facility] INDICATIONS------ | | -----Sinus Tachycardia [...] cmLVIDd: 4.70 cmLVPWd: 0.79 cmLVOT Area: 3.58 df9ABOE Diam: 2.13 cm%FS: 39.25 | | %EF(Teich): [...] | Index (A-L): 14.72 ml/m2LAAs A2C: 10.03 ty5BZLBQ A-L A2C: 22.69 mlLALs A2C: 3.76 | | cmLAAs A4C: 13.41 ga1RVGOS A-L A4C: 36.80 mlLALs A4C: 4.14 cmRAAs: 11.18 | | ej2YTQAO A-L: 22.84 mlRAESV MOD: 22.10 mlRALs: 4.64 cmTAPSE: 2.04 cmAV maxPG: | | 6.55 mmHgAV meanP.52 mmHgAV Vmax: 1.27 m/Genesis Vmean: 0.88 m/Genesis VTI: 26.50 | | cmAVA Vmax: 2.49 cm2AVA (VTI): 2.39 up5EPDU Vmax: 0.00 cm2/m2AVAI (VTI): 0.00 | | cm2/m2LVOT maxP.17 mmHgLVOT meanP.82 mmHgLVSI Dopp: 30.83 ml/m2LVSV Dopp: | | 63.52 mlLVOT Vmax: 0.89 m/sLVOT Vmean: 0.65 m/sLVOT VTI: 17.71 cmMV A Jeffrey: | | 0.61 m/sMV Dec Pine: 2.43 m/s2MV DecT: 247.51 msMV E Jeffrey: 0.60 m/sMV E/A Ratio: | | 0.98MV PHT: 71.78 msMVA By PHT: 3.06 vf0Cxrktm e': 0.06 m/sSeptal E/e': | | 9.54Lateral e': 0.10 m/sLateral E/e': 5.84RAP: 5 mmHgRV s': 0.11 m/s | | Box Stacker: HONEYuthenticated by: Darryl Hess Date/Time: 02-22-2019 20:8:36 [...] A Jeffrey: 0.61 m/s | |MV Dec Pine: 2.43 m/s2 | |MV DecT: 247.51 ms | |MV E Jeffrey: 0.60 m/s | |MV E/A Ratio: 0.98 | |MV PHT: 71.78 ms | |MVA By PHT: 3.06 cm2 | |Septal e': 0.06 m/s | |Septal E/e': 9.54 | |Lateral e': 0.10 m/s | |Lateral E/e': 5.84 | |RAP: 5 mmHg | |RV s': 0.11 m/s | | | |Box Stacker: JESSICA | |Authenticated by: Darryl Merrill | [...]
--- OUTSIDE RECORDS SUMMARY | ~2020-04-17 | XMS | Encounter Summary ---
Demographics + + + | Address | [address] | | | [place] [address] | + + + | Home Phone [...] [place], [place] | | | | | [address] | | + + + + + | Ellie Vang | ECON | Unknown | | + + + + + Care Team Providers + +------+ + | Care Animal Trainer Name | Role | Phone | + [...] Rd | | | | | | [place], [place] | | | | | | [address] | | | | | | [phone] | | | | | | | | +--------+---------+ + + + documented as of this encounter Visit Diagnoses Not on filedocumented in this encounter"
--- OUTSIDE RECORDS SUMMARY | ~2020-04-17 | XMS | Encounter Summary ---
Demographics + + + | Address | [address] | | | [place] [address] | + + + | Home Phone | | + + + | Preferred Language | Unknown | + + + | Marital Status | | + + + | Oriental Orthodox Affiliation | Unknown | + + [...] Providers + +------+ + | Care Client Services Associate Name | Role | Phone | [...] | | | | without | [place] [address] | [place] | | | | | aura, | Phone: | [address] | | | | | intractable, | [phone] | Phone: | | | | | without | Fax: | [phone] | | | | | status | [phone] | Fax: | | | | | migrainosus | | [phone] | + +--------+ + + + + Encounter Details +--------+ + + + + | Date | Type | Department | Care Team | Description | +--------+ + + + + | 01/23/ | Virtual | [facility] | Camille De La Paz, | Intractable chronic | | 2020 | Office | NEUROLOGY [address] | common migraine | | | Visit | [address] | [address] | without aura | | | | [place], [place] | [place] [address] | (Primary Dx); | | | | [address] | [phone] | Medication overuse | | | | [phone] | | headache | +--------+ + + [...] information carefully each time. Talk to your flexible babysitter regarding the use of this medicine in children. While this drug m ay be prescribed for children as young as 3 years for selected conditions, precautions do ap ply. What side effects may I notice from receiving this medicine? Side effects that you should report to your doctor or health vision care associate as soon as p ossible: allergic reactions like skin rash, itching or hives, swelling of the face, lips, or tong ue breathing problems suicidal thoughts, mood changes Side effects that usually do not require medical attention (report to your doctor or health vision care associate if they continue or are bothersome): dizziness [...] this medicine? Visit your doctor or health vision care associate for regular checks on your progress. You may want to keep a record at home of how you feel your condition is responding to treatment. You may want to share this information with your doctor or health vision care associate at each vis it. You should contact your doctor or health vision care associate if your seizures get worse or if you have any new types of seizures. Do not stop taking this medicine or any of your seiz ure medicines unless instructed by your doctor or health vision care associate. Stopping your me dicine suddenly can increase [...] dying should be reported to your health vision care associate right away. Women who become while using this medicine may enroll in the [place] Antiep ileptic Drug Registry by calling . This registry collects informatio n about the safety of antiepileptic drug use during . NOTE:This sheet is a summary. It may not cover all possible information. If you have questi ons about this medicine, talk to your doctor, pharmacist, or health care provider. Copyright 2020 [employer] documented in this encounter Progress Notes Camille De La Paz MD - 01/24/2020 7:45 AM PDTFormatting of this note might be different f rom the original. This exam was initially conducted via a secure 256-bit AES encrypted bidirectional video se ssion. This visit was converted to virtual visit due to COVID-19 pandemic. Service was provided tyfv-eo-ahlt with the patient via interactive videoconferencing Video start time 808 am Video end time 842 am Total time (in minutes) 45+ minutes including review of records, face to face time, documen tation including orders and finalizing care plan You have chosen to receive care through the use of telemedicine. Telemedicine enables [facility] care providers at different locations to [...] a 44 yo R handed lady from [place], [place] She has a h/o stroke at [...] mg daily.), Disp: 30 tablet, Rfl: 11 Srzljgp-Khrjdzwex-Gttvyrz D (CITRACAL CALCIUM+D PO), Take 4 tablets [...] tablets qhs, Disp : , Rfl: rizatriptan (MAXALT-APPLICATIONS PROJECT MANAGER) 5 mg disintegrating tablet, Take 5 mg by mouth as needed for Migraine. May repeat in 2 hours if needed, Disp: , Rfl: spironolactone (ALDACTONE) 50 mg tablet, Take 50 mg by mouth Daily., Disp: , Rfl: thyroid (RESEARCH AND INSIGHTS EXECUTIVE THYROID) 30 mg tablet, RESEARCH AND INSIGHTS EXECUTIVE Thyroid 30 mg tablet TAKE ONE TABLET [...] MOE | | | | | | [facility] | | | | | | [place] [address] | | | | | | [phone] | | | | | | | | +--------+ + + + + documented as of this encounter Visit Diagnoses + + | Diagnosis | + + | Intractable chronic common migraine without aura - Primary | + + | Medication overuse headache Drug induced headache, not elsewhere classified | + + documented in this encounter
--- OUTSIDE RECORDS SUMMARY | ~2020-04-17 | XMS | Encounter Summary ---
Demographics + + + | Address | [address] | | | [place] [address] | + + + | Home Phone [...] + | Katalina Padilla | ECON | [address] | | | | | [place], [place] | | | | | [address] | | + + + + + | Ellie Vang | ECON | Unknown | | + + + + + Care Team Providers + +------+ + | Care Stripper And Taper Name | Role | Phone | + [...] Diabetes & | Morbid | Kathy M, FISHING VESSEL CAPTAIN | [address] | | | | Metabolism | obesity | [address] | Pavilion | | | | | (HCC) | [address], | Loop | | | | | Procedures | [address] | Physician's | | | | | CONSULT TO | [facility] [place] | Pavilion | | | | | ENDO | [address] | Physician's | | | | | [address] | Phone: | Pavilion | | | | | [address] | [phone] | [place], [place] | | | | | | Fax: | [address] | | | | | | [phone] | Phone: | | | | | | | [phone] | | | | | | | Fax: | | | | | | | [phone] | +--------+--------+ + + + + Encounter Details +--------+---------+ + + + | Date | Type | Department | Care Team | Description | +--------+---------+ + + + | 04/14/ | Office | Aniket Lopez | Randell Franks, | DM type 2 (diabetes | | 2012 | Visit | Diabetes Health | [address] | mellitus, type 2) | | | | [facility] | [place], [place] | ([facility]) (Primary Dx); | | | | [address] | [address] | Type 2 diabetes | | | | [address] | [phone] | mellitus ([facility]); [facility] | | | | Physician's Pavilion | | (obstructive sleep | | | | Physician's | | apnea); Morbid | | | | Pavilion [place], | | obesity ([facility]); | | | | [place] [address] | | Edema; GERD | | | | [phone] | | (gastroesophageal | | | | | | reflux disease) | +--------+---------+ + [...] Goodrich DO Referring physician: Kathy Feldman, KALYAN [address] [place] [address] HPI: Dylan is a 38 y.o. female [...] Skin: NL, no xanthomas Labs: Results for NICK DYLAN JASSO ( ) as of 04/19/2013 10:53 11/12/2012 03:56 04/14/2013 11:09 SODIUM, PLASMA (LAB) 138 POTASSIUM, PLASMA (LAB) 4.1 POTASSIUM CMNT No Hemo CHLORIDE, PLASMA (LAB) 102 TOTAL CO2, PLASMA (LAB) 30 ANION GAP 6 ANION GAP(ALB CORRECTED) 9 BUN, PLASMA (LAB) 9 CREATININE PLASMA (LAB) 0.71 EGFR - [place]OV[place] >60 EGFR NON -[place] >60 GLUCOSE, PLASMA (LAB) 113 (H) CALCIUM, [...] capillary A1C documented in this enc ounter Miscellaneous Notes Scan - Other, Faculty - 04/28/2013 5:50 PM PDTElectronically signed by Faculty Other at 5:50 PM PDTdocumented in this encounter Plan of [...] Rd | | | | | | [place], [place] | | | | | | [address] | | | | | | [phone] | | | | | | | [...] | | | PDT | type 2) ([facility]) | results section. | + +--------+ + + + | [place] COLLECTION | Routin | 04/14/2013 | DM type 2 | | | CAPILLARY BLOOD | e | 11:08 AM | (diabetes mellitus, | | | SPECIMEN | | PDT | type 2) ([facility]) [...] AMES | [address] | [place], [place] | | | JUSTINE DAWN OF JAKY | [facility] | [address] | | | TESTS | | | | + + + + + documented in this encounter Visit Diagnoses + + | Diagnosis | + + | DM type 2 (diabetes mellitus, type 2) (HCC) - Primary Type II or unspecified [...]
--- OUTSIDE RECORDS SUMMARY | ~2020-04-17 | XMS | Encounter Summary ---
Demographics + + + | Address | [address] | | | [place] [address] | + + + | Home Phone [...] + | Katalina Padilla | ECON | [address] | | | | | [place], [place] | | | | | [address] | | + + + + + | Ellie Vang | ECON | Unknown | | + + + + + Care Team Providers + +------+ + | Care Automation Machine Operator Name | Role | Phone [...] | 2018 | Review | Center at [facility] [address] | ACNP [address] | Recommendations | | | [address] [facility] | [address] [place], [place] | | | | | [facility] and | [address] | | | | | [facility], [facility] 2 | [phone] | | | | | [place], [place] | | | | | | [address] | | | | | | [phone] | | | +--------+ + + + [...] documented as of this encounter Miscellaneous Notes Committee Review - Melissa Garay RN - 12/03/2017 11:04 AM PDTThis patient was discusse d by the Bariatric Multi-Disciplinary Team at the High Risk Committee Meeting on December 03 8. Reason for review: CHF, DM Type II, Previous abdominal surgeries, Hernia, Poor Support, Di fficulty understanding instruction. Medical history and pre-op evaluations reviewed. Recommendations: 1. Optimized. May proceed with surgery. Disposition: 1. [facility] staff will contact patient with next steps. documented in this encounter Plan of Treatment +--------+---------+ + + + | Date | Type | Specialty | Care Team | Description | +--------+---------+ + + + | 06/08/ | Office | Plastic Surgery | Antoinette Hale, | | | 2019 | Visit | | MD [address] | | | | | | [address] | | | | | | [place], [place] | | | | | | [address] | | | | | | [phone] | | | | | | | | +--------+---------+ + + + documented as of this encounter Visit Diagnoses Not on filedocumented in this encounter"
--- OUTSIDE RECORDS SUMMARY | ~2020-04-17 | XMS | Encounter Summary ---
Demographics + + + | Address | [address] | | | [place] [address] | + + + | Home Phone [...] [place], [place] | | | | | [address] | | + + + + + | Ellie Vang | ECON | Unknown | | + + + + + Care Team Providers + +------+ + | Care Holistic Health Practitioner Name | Role | Phone | [...] Diabetes & | Morbid | Kathy Feliciano, LIVE IN HOUSEKEEPER | [address] | | | | Metabolism | obesity | [address] | Pavilion | | | | | (HCC) | [address], | Loop | | | | | Procedures | [address] | Physician's | | | | | CONSULT TO | [place], [place] | Pavilion | | | | | ENDO | [address] | Physician's | | | | | [address] | Phone: | Pavilion | | | | | [address] | [phone] | [place], [place] | | | | | | Fax: | [address] | | | | | | [phone] | Phone: | | | | | | | [phone] | | | | | | | Fax: | | | | | | | [phone] | +--------+--------+ + + + + Encounter Details +--------+ + + + + | Date | Type | Department | Care Team | Description | +--------+ + + + + | 11/15/ | Documentati | Digestive Health | Conser, Kathy M, | | | 2013 | on | Center at [facility] [address] | LIVE IN HOUSEKEEPER [address] | | | | | [address] [facility] | [facility] [address] | | | | | for Health and | [place], [place] | | | | | [facility] 2 | [address] | | | | | [place], [place] | [phone] | | | | | [address] | | | | | | [phone] | | | +--------+ + + + [...] Notes Telephone Encounter - Nitza Jacobson - 11/15/2012 3:43 PM PDTDiscussed pt at High Risk Bariatric Meeting on 11/10/12 Discussed health history, surgical history. Pt high risk due to BMI 81, prior hernia repair surgery. We discussed this pt as a team and decided they were not ready to proceed to surgery. Referral placed to endocrinology and RD. Patient may wish to go locally to endocrinology.El ectronically signed by Nitza Jacobson at 11/15/2012 3:54 PM PDTdocumented in this encount er Plan of Treatment +--------+---------+ + + + | Date | Type | Specialty | Care Team | Description | +--------+---------+ + + + | 06/08/ | Office | Plastic Surgery | Antoinette Hale, | | | 2019 | Visit | | [address] | | | | | | [address] | | | | | | [place], [place] | | | | | | [address] | | | | | | [phone] | | | | | | | | +--------+---------+ + + + documented as of this encounter Visit Diagnoses + + | Diagnosis | + + | Morbid obesity (HCC) - Primary Morbid obesity | + + documented in this encounter"
--- OUTSIDE RECORDS SUMMARY | ~2020-04-17 | XMS | Encounter Summary ---
Demographics + + + | Address | [address] | | | [place] [address] | + + + | Home Phone [...] + | Katalina Padilla | ECON | [address] | | | | | [place], [place] | | | | | [address] | | + + + + + | Ellie Vang | ECON | Unknown | | + + + + + Care Team Providers + +------+ + | Care Disc Inspector Name | Role | Phone | [...] | | 2014 | | Preventive at [facility] | MD [address] | (Phentermine); | | | | [address] | [place], [place] | Refill Request | | | | [facility] | [address] | | | | | and [address], | [phone] | | | | | [place] [address] | | | | | | [place], [place] | | | | | | [address] | | | | | | [phone] | | | +--------+--------+ + + + [...] 9:20 am Next Visit: Next Appointment in [facility] is on 08/28/14 at 10:20 am with Randell Franks MD. elephone Encounter - Corazon Kwon RN - 07/31/2014 10:34 AM PSTReceived refill request for Phentermine 37.5 mg, from patient (would like refill sent to [facility] in [place], [place]). Patient was last seen in clinic 03/09, by Dr Franks.Ms Cristina has follow up scheduled 08/28/14 . Setup prescription per protocol for signature by provider, and phone in: Pharmacy: [facility] [address] [facility] [place] [phone] elephone Deepti Rodriguez - 07/31/2014 10:25 AM PST Reason for Call: Refill Request - Phentermine Refill Request Patient: Elzbieta Cristina Patient Contact Numbers: Home Phone Message: Description of reason for call: Patient calling regarding refill of Phentermine. Patient ca lled in on Thursday07/28/14, completely of of medication, [facility] in [place], [place] Last Visit: 03/06/14 at 9:20 am Next Visit: Next Appointment in [facility] is on 08/28/14 at 10:20 am with Randell Franks MD. elephone Encounter - Sahyan Capellan - 07/28/2014 2:57 PM PSTFormatting of this note might be different from the origi nal. Reason for Call: Refill Request - Phentermine Patient: Elzbieta Cristina Patient Contact Numbers: Home Phone Message: Description of reason for call: Patient would like to call in a 3 month refill o f Phentermine to [facility] in [place], she is out of meds and doesn't see Dr. Loya ll until Aug 2014. Please contact patient for further information. Last Visit: 03/06/14 at 9:20 am Next Visit: Next Appointment in [facility] is on 08/28/14 at 10:20 am with Randell Franks MD. documented in this encounter Plan of Treatment +--------+---------+ + + + | Date | Type | Specialty | Care Team | Description | +--------+---------+ + + + | 06/08/ | Office | Plastic Surgery | Antoinette Hale, | | | 2019 | Visit | | [address] | | | | | | [address] | | | | | | [place], [place] | | | | | | [address] | | | | | | [phone] | | | | | | | | +--------+---------+ + + + documented as of this encounter Visit Diagnoses Not on filedocumented in this encounter"
--- OUTSIDE RECORDS SUMMARY | ~2020-04-17 | XMS | Encounter Summary ---
Demographics + + + | Address | [address] | | | [place] [address] | + + + | Home Phone [...] + | Katalina Padilla | ECON | [address] | | | | | [place], [place] | | | | | [address] | | + + + + + | Ellie Vang | ECON | Unknown | | + + + + + Care Team Providers + +------+ + | Care Supervisor [place] Name | Role | Phone | + [...] Encounter | Procedural Unit | MD Barb [address] | | | | | ([facility]) at [facility] [address] | [address] [place], [place] | | | | | [address] | [address] | | | | | Mailcode: [place] | [phone] | | | | | for Health and | | | | | | Healing, [address] | | | | | | [place], [place] | | | | | | [address] | | | | | | [phone] | | | +--------+ + + + [...] Discharge Instructions Instructions Keerthi Bernard RN - [facility]2019[facility] Instructions after [facility]GD (Upper Endos copy) [...] hours or on weekends and holiday Hospital Blowing Engineer toll free [phone]. [phone] and have the GI doctor missile control pilot paged. The provider who performed your procedure: [...] | | 0 | | | | [id number] | mouth two times | | | [...] from the original. PRE PROCEDURE NOTE: MR# [id number] Subjective: Elzbieta Cristina is a 44 y.o. [...] | 2019 | Visit | | [address] [facility] | | | | | | [address] | | | | | | [place], [place] | | | | | | [address] | | | | | | [phone] | | | | | | | [...] + | MRN: | [facility] | | [id number] Date: 04/07/2019Patient Name: Elzbieta Curtis #: | ENDOSCOPY | | [id number] of : 1975CSN: [id number] Type: | | | AmbulatoryRoom: Endo 5Procedure: Upper GI | | | endoscopyIndications: Generalized abdominal pain, Nausea | | | with vomitingProviders: TAL LUND MD | | | (Doctor), KEERTHI BERNARD RN (Nurse), | | | GENECREST BASCON (Truck Mechanic)Referring MD: SYLVIA Kilpatrick | | | KENNY SAMPSONPRemateusz Provider: Medicines: | | | Midazolam 8 [...] | | | The Olymp[employer] [id number] Endoscope #[id number] | | | was introduced through the [...] + + | Performing | Address | City/State[facility] | Phone Number | | Organization [...]
--- OUTSIDE RECORDS SUMMARY | ~2020-04-17 | XMS | Encounter Summary ---
Demographics + + + | Address | [address] | | | [place] [address] | + + + | Home Phone [...] [place], [place] | | | | | [address] | | + + + + + | Ellie Vang | ECON | Unknown | | + + + + + Care Team Providers + +------+ + | Care Replenishment Associate Name | Role | Phone | [...] 2018 | | Center at [facility] [address] | MD [address] | | | | | [address] | [place], [place] | | | | | for Health and | [address] | | | | | [facility], [facility] 2 | [phone] | | | | | [place], [place] | | | | | | [address] | | | | | | [phone] | | | +--------+--------+ + + + [...] | 2019 | Visit | | MD [address] | | | | | | [address] | | | | | | [place], [place] | | | | | | [address] | | | | | | [phone] | | | | | | | | +--------+---------+ + + + documented as of this encounter Visit Diagnoses Not on filedocumented in this encounter"
--- OUTSIDE RECORDS SUMMARY | ~2020-04-17 | XMS | Encounter Summary ---
Demographics + + + | Address | [address] | | | [place] [address] | + + + | Home Phone [...] [place], [place] | | | | | [address] | | + + + + + | Ellie Vang | ECON | Unknown | | + + + + + Care Team Providers + +------+ + | Care Terminal Press Operator Name | Role | Phone [...] | | 2015 | | Preventive at [facility] | MD [address] | (Phentermine) | | | | [address] | [place], [place] | | | | | [facility] | [address] | | | | | and [address], | [phone] | | | | | [place] [address] | | | | | | [place], [place] | | | | | | [address] | | | | | | [phone] | | | +--------+ + + + [...] - 11/01/2015 1:47 PM PDTWill route to RN Corazon to have her olga lidia l in [...] | | 2019 | Visit | | [address] | | | | | | [address] | | | | | | [place], [place] | | | | | | [address] | | | | | | [phone] | | | | | | | | +--------+---------+ + + + documented as of this encounter Visit Diagnoses Not on filedocumented in this encounter"
--- OUTSIDE RECORDS SUMMARY | ~2020-04-17 | XMS | Clinical Summary ---
Demographics + + + | Address | [address] | | | [place] [address] | + + + | Home Phone [...] | Organization | [facility] [...] Providers + +------+ + | Care Agricultural Service Worker Name | Role | Phone | [...] by mouth 3 | | 0 | 08/ | | Activ | | 0.5 mg tablet | times daily as | | | 08/15 | | e | | | needed Twice a day. | | | 16 | | | + + + +---------+------+------+-------+ | ascorbic acid | Take 1,000 mg by | | 0 | 03/2 | | Activ | | (VITAMIN C) 500 MG | mouth Daily. | | | 01/13 | | e | | tablet | [...] 0 | | | Activ | | Mmfjxhd-Oiytwqbrc-Ri | mouth 2 times daily. | | [...] | + + + +---------+------+------+-------+ | thyroid (CIRCUIT COURT CLERK | CIRCUIT COURT CLERK Thyroid 30 mg | | 0 | | | Activ | | THYROID) 30 mg | tablet TAKE ONE | | | | | e | | tablet | TABLET BY MOUTH ONCE | | | | | | | | DAILY | | | | | | + + + +---------+------+------+-------+ | potassium chloride | Take 40 mEq by mouth | | 0 | | | Activ | | 20 mEq CR tablet | 2 times daily . | | | | | e | [...] 7:44 AM | +---+ + + + +---------+---+------+---+-------+ | metoclopramide | Take 10 mg by mouth | | 0 | | | Activ | | (REGLAN) 10 mg | as needed for | | | | | e | | tablet | Nausea. | | | | | | + + +---------+---+------+---+-------+ | warfarin | Take 5 mg by mouth | | 0 | | | Activ | | (COUMADIN) 5 mg | Daily. | | | | | e | | tablet | | | | | | | + + +---------+---+------+---+-------+ | rizatriptan | Take 5 mg by mouth | | 0 | | | Activ | | (MAXALT-PRIVATE SECURITY GUARD) 5 mg | as needed for | | | | | e | | disintegrating | Migraine. May repeat | | | | | | | tablet | in 2 hours if | | | | | | | | needed | | | | | | + + +---------+---+------+---+-------+ | chlorproMAZINE | Take 100 mg by mouth | | 0 | | | Activ | | (THORAZINE) 100 mg | nightly. | | | | | e | | tablet | | | | | | | + + +---------+---+------+---+-------+ | | Take 1 tablet by | | 0 | | | Activ | | oxyCODONE-acetaminop | mouth every 6 hours | | | | | e | | hen (PERCOCET) | as needed for Pain. | | | | | | | 10-325 mg per tablet | | | | | | | + + +---------+---+------+---+-------+ | prazosin | Take 4 mg by mouth | | 0 | | | Activ | | (MINIPRESS) 2 MG | nightly . | | | | | e | | capsule | | | | | | | + + +---------+---+------+---+-------+ | gabapentin | Increase as | 90 [...] | | | | | + + +---------+---+------+---+-------+ +---+ + | | Additional | | | InformationPatient | | | taking differently: | | | 300 mg, Increase as | | | instructed to 3 caps | | | three times a day, | | | Reported on 03/29/2020 | | | 1:10 PM | +---+ + + + +---------+---+------+------+-------+ | ergocalciferol | Take 1 capsule by | | 0 | 0 | | Disco | | (VITAMIN D-2) 50,000 | mouth every 7 days. | | | 04/15 | 10/13 | ntinu | | units capsule | | | | 18 | 20 | ed | | | | | | | | (Ther | | | | | | | | apy | | | | | | | | compl | | | | | | | | eted) | + + +---------+---+------+------+-------+ | ferrous gluconate | Take 324 mg by | | 0 | | | Disco | | (FERGON) 324 mg | mouth. | | | | 10/13 | ntinu | | tablet | | | | | 20 | ed | | | | | | | | (Ther | | | | | | | | apy | | | | | | | | compl | | | | | | | | eted) | + + +---------+---+------+------+-------+ | topiramate | 100 mg 3 times | | 0 | | 09/0 | Disco | | (TOPAMAX) 50 MG | daily. | | | | 3/20 | ntinu | | tablet | | | | | 20 | ed | | | | | | | | (Ther | | | | | | | | apy | | | | | | | | compl | | | | | | | | eted) | + + +---------+---+------+------+-------+ | gabapentin | Take 1 cap three | 180 | 3 | 3 | 08 | Disco | | (NEURONTIN) 100 mg | times a day for a | capsule | | 0/20 | 620 | ntinu | | capsuleIndications: | week, [...] | | msg)) | + + +---------+---+------+------+-------+ | topiramate | Take 100 mg by mouth | | 0 | 07/2 | 09/0 | Disco | | (TOPAMAX) 100 mg | 2 times daily . | | | 1 | 3/20 | ntinu | | tablet | | | | 20 | 20 | ed | | | | | | | | (Ther | | | | | | | | apy | | | | | | | | compl | | | | | | | | eted) | + + +---------+---+------+------+-------+ Active Problems + [...] qd x | | 30 October 2015 [facility] Assessment & Plan: Hgb appears to run [...] obesityPickwickian syndrome | | Recent admission to [facility] for 100lb | | weight gain- DC on diuresis on 03/06/2016- she feel improvedShe | | was on Metolazone and Torsemide prior to hospitalization- both | | have better bioavailability than lasix in gut edema but she | | retained 100lbs - how ever she is currently on only Torsemide | | 100mg Q12hrs started in [place] and her weight been stable | | sinceGrace has no other complaints.She is pending to see | | NephrologistEcho 02/16/2016([facility])- Normal LV systolic | | function, [...] + + + | Overview: Problem List Warper Tender Utility | + + + + + [...] + + + + | Overview: Overview: [facility] Assessment & Plan: Patient with | | [...] responded well to diuresis at | | [facility] (lost 60lb, down to 410), and then reaccumulated water | | weight on Torsemide and metolazone, which should be less effected | | by gut wall edema than Lasix. She has an appt with nephrology at | [facility] on 03[facility]17. Weight now 200kg (440lb, down [...] Defer Metolazone to her | | outpatient Community Advocate or Aboriginal Ceremonial Celebrant- Will continue KCL | | supplementation at 60meq QID despite the spironolactone as she | | remains on the low side- Encourage daily weights at home with a | | log; she should contact her PCP, Community Advocate or Aboriginal Ceremonial Celebrant for | | a 10lb weight gain [...] morbid obesity, she is enrolled in the [facility] bariatric program. | | She has [...] inpatient, tolerating well in the | | [facility]-- FRASER arranging for BiPAP upon d/c [place] | | areaOverview: Cannot tolerate CPAP | [...] | +--------+ + + + + | 03/30/ | Telephone | Neurology | Camille De La Paz, | Other | | 2020 | | | MD | | +--------+ + + + + | 03/29/ | Office | Cardiology | Sulema Altamirano | Chronic diastolic | | 2020 | Visit | | HILDA Pope | [...] | | | | | | (CPAP); History of | | | | | [...] De La Paz, | Other (Medication) | 2019 | | | MD | [...] headache | +--------+ + + + + from [...] + + + | Blood Pressure | 118/80 | 03/29/2020 1:02 PM | | | | | PDT | | + + + + + | Pulse | 85 | 03/29/2020 1:02 PM | | | | | [...] + | Oxygen Saturation | 97% | 03/29/2020 1:02 PM | | | | | PDT | | + + + + + | Inhaled Oxygen | - | - | | | Concentration | | | | + + + + + | Weight | 126.7 kg (279 lb 4.8 | 03/29/2020 1:02 PM | | | | oz) | PDT | | + + + + + | Height | 147.3 cm (4' 10") | 03/29/2020 1:02 PM | | | | | PDT | | + + + + + | Body Mass Index | 58.37 | 03/29/2020 1:02 PM | | | | | PDT | | + + + + + Plan of Treatment +--------+ + + + + | Date | Type | Specialty | Care Team | Description | +--------+ + + + + | 04/18/ Procedure | Neurology | Camille De La Paz, | | | 2020 | visit | | MD [address] | | | | | | [address] | | | | | | [place] [address] | | | | | | [phone] | | | | | | | [...] + + | Med Mgmt: HDL | 08 | | | | | 7 | | | + + + + + | Med Mgmt: LDL | 08 | | | | | 7 | [...] + + + + | Vaccine: | 08/05/198 | 03/24/19 | | | Dtap/Tdap/Td (5 [...] | ECG 12 LEAD | Routin | 03/29/2020 | Chronic diastolic | Results for this | | | e | 1:16 PM | heart failure (HCC) | procedure are in the | | | | PDT | History of sinus | results section. 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 | | | | | | Hyperparathyroidism | | | | | | (HCC) | | + +--------+ + + + from Last 3 Months Results ECG 12 lead (03/29/2020 1:16 PM PDT) + + + + + + | Component | Value | Ref Range | Performed | Pathologist | | | | | At | Signature | + + + + + + | VENTRICULAR | 73 | BPM | [facility] | | | RATE EKG | | | | | + + + + + + | ATRIAL RATE | 73 | BPM | [facility] | | + + + + + + | P-R | 168 | ms | [facility] | | | INTERVAL | | | | | + + + + + + | QRS | 76 | ms | [facility] | | | DURATION | | | | | + + + + + + | Q-T | 408 | ms | [facility] | | | INTERVAL | | | | | + + + + + + | Q-T | 449 | ms | [facility] | | | INTERVAL | | | | | | (CORRECTED) | | | | | + + + + + + | P WAVE AXIS | 48 | degrees | [facility] | | + + + + + + | QRS AXIS | 100 | degrees | [facility] | | + + + + + + | T AXIS | 54 | degrees | [facility] | | + + + + + + | INTERPRETAT | Normal sinus | | [facility] | | | ION TEXT | rhythmRightward | | | | | | axisBorderline ECGWhen | | | | | | compared with ECG of | | | | | | -APR-2019 | | | | | | 13:27,similar | | | | | | morphologyConfirmed by | | | | | | SULEMA DORAN | | | | | | ([id number]) on 03/29/2020 | | | | | | 1:52:33 PM | | | | + + [...] | [employer] | MODA | [id number] | 10/28/19 | [phone] | | Medica | | MEDICAID HMO | HEALTH | | 19-Pre | 1 | | id | | | MDCD | | sent | | | | | | [place] | | | | | | + +--------+ +--------+ +---------+--------+ | [employer] | MODA | [id number] | | [phone] | | Medica | | MEDICAID HMO [...] | Self | [birth year] | [address] | | | al/Fam | | 1974 | [phone] | [address], [place] | | | mireya | | | 3 (Home) | [address] | + +--------+ +--------+ + + | Elzbieta Cristinan | Person | Self | [birth year] | [address] | | | al/Fam | | 1974 | [phone] | [place], [place] | | | mireya | | | 3 (Home) | [address] | + +--------+ +--------+ + + | Elzbieta Cristinan | Person | Self | [birth year] | [address] | | | al/Fam | | 1974 | [phone] | [address], [place] | | | mireya | | | 3 (Home) | [address] | + +--------+ +--------+ + + Advance Directives + + + + + | Type | Date Recorded | Patient | Explanation | | | | Hazmat Truck Driver | | + + + + + | Power of | | | | | Processing Lead | | | | + + + + + | Advance | | | | | Directive | | | | + + + + +
--- OUTSIDE RECORDS SUMMARY | ~2020-04-17 | XMS | Encounter Summary ---
Demographics + + + | Address | [address] | | | [place] [address] | + + + | Home Phone [...] [place], [place] | | | | | [address] | | + + + + + | Ellie Vang | ECON | Unknown | | + + + + + Care Team Providers + +------+ + | Care Client Service Manager Name | Role | Phone [...] | | | Ave Mailcode: [address] | [place], [place] | | | | | [facility] | [address] | | | | | and [place], | [phone] | | | | | [place] [address] | | | | | | Floor [place], [place] | | | | | | [address] | | | | | | [phone] | | | +--------+ + + + [...] Rd | | | | | | [facility] | | | | | | [address] | | | | | | [phone] | | | | | | | | +--------+---------+ + + + documented as of this encounter Visit Diagnoses Not on filedocumented in this encounter"
--- OUTSIDE RECORDS SUMMARY | ~2020-04-17 | XMS | Encounter Summary ---
Demographics + + + | Address | [address] | | | [place] [address] | + + + | Home Phone [...] [place], [place] | | | | | [address] | | + + + + + | Ellie Vang | ECON | Unknown | | + + + + + Care Team Providers + +------+ + | Care Jerker Name | Role | Phone | + [...] floor | | | | | | [place], [place] | | | | | | [address] | | | +--------+ + + + [...] | | 2019 | Visit | | [address] | | | | | | [address] | | | | | | [place], [place] | | | | | | [address] | | | | | | [phone] | | | | | | | | +--------+---------+ + + + documented as of this encounter Visit Diagnoses Not on filedocumented in this encounter"
--- OUTSIDE RECORDS SUMMARY | ~2020-04-17 | XMS | Encounter Summary ---
Demographics + + + | Address | [address] | | | [place] [address] | + + + | Home Phone [...] [place], [place] | | | | | [address] | | + + + + + | Ellie Vang | ECON | Unknown | | + + + + + Care Team Providers + +------+ + | Care Cardiovascular Rn Name | Role | Phone | [...] | | 2 diabetes | JEAN, | [place], [place] | | | | | mellitus | [place] [address] | [address] | | | | | without | Phone: | Phone: | | | | | complication | [phone] | [phone] | | | | | (HCC) | Fax: | Fax: | | | | | Procedures | [phone] | [phone] | | | | | IA EST | | | | | | [...] | 2018 | Visit | Preventive at [facility] | MD [address] | mellitus without | | | | [address] | [place], [place] | complication, with | | | | [facility] | [address] | long-term current | | | | and Healing, | [phone] | use of insulin (HCC) | | | | [address] | | (Primary Dx); | | | | [place], [place] | | Morbid obesity with | | | | [address] | | BMI of 70 and over, | | | | [phone] | | adult (HCC) | +--------+---------+ + [...] Note: Cannot tolerate CPAP Severe Morbid obesity ([facility]), BMI 88 11/12/2012 Priority: 4 [...] with BMI of 70 and over, adult ([facility]) 02/02/2017 Chronic diastolic heart failure [...] 1 tablet by mouth once daily CALCIUM CRB&WAX-S7-XJJ14-GENIS ORAL Take 2 tablets by mouth two [...] jeart failure is manag ed by her plastic jig and fixture builder and she was seen by the bariatric [...] is currently being managed well by her Digital Court Reporter with diuretics and main tenance of her [...] management of her heart failure by her Digital Court Reporter 3) Check A1c, lipids 4) Await bariatric [...] [place] | | | | | | [address] | | | | | | [phone] | | | | | | | [...] | [facility] | [address] | [place], [place] | | | SERVICES, LIPID | [address] | [address] | | + + + + + [...] | [facility] | | considered for monitoring fpc glycemic control in patients with: | LABORATORY [...] [facility] | [address] | [place] [address] | | | SERVICES, SPECIAL | [address] | | | | IMM + COAG | | | | + + + + + documented in this encounter Visit Diagnoses + + | Diagnosis | + + | Type 2 diabetes mellitus without complication, with long-term current use of insulin | | ([facility]) - Primary | + + | Morbid obesity with BMI of 70 and over, adult ([facility]) | + + documented in this encounter
--- OUTSIDE RECORDS SUMMARY | ~2020-04-17 | XMS | Encounter Summary ---
Demographics + + + | Address | [address] | | | [place] [address] | + + + | Home Phone [...] [place], [place] | | | | | [address] | | + + + + + | Ellie Vang | ECON | Unknown | | + + + + + Care Team Providers + +------+ + | Care Draw Furnace Tender Name | Role | Phone [...] | | 2013 | | Center at [facility] [address] | ELEMENTARY TUTOR [address] | | | | | [address] [facility] | [facility] [address] | | | | | for Health and | [place], [place] | | | | | [facility] [address] | [address] | | | | | [place], [place] | [phone] | | | | | [address] | | | | | | [phone] | | | +--------+ + + + [...] | | 2019 | Visit | | [address] | | | | | | [address] | | | | | | [place], [place] | | | | | | [address] | | | | | | [phone] | | | | | | | | +--------+---------+ + + + documented as of this encounter Visit Diagnoses Not on filedocumented in this encounter"
--- OUTSIDE RECORDS SUMMARY | ~2020-04-17 | XMS | Encounter Summary ---
Demographics + + + | Address | [address] | | | [place] [address] | + + + | Home Phone [...] [place], [place] | | | | | [address] | | + + + + + | Ellie Vang | ECON | Unknown | | + + + + + Care Team Providers + +------+ + | Care Divisional Human Resources Director Name | Role | Phone | + +------+ + | Fadi Goodrich DO | PCP | | + +------+ + Encounter Details +--------+---------+ + + + | Date | Type | Department | Care Team | Description | +--------+---------+ + + + | 02/22/ | Office | Preoperative | Gay Hoff, | Preop examination | | 2018 | Visit | [facility] at | DNP,ANP [address] | (Primary Dx) | | | | [facility] | [facility] | | | | | [address] | [place], [place] | | | | | [facility] | [address] | | | | | and Healing, | [phone] | | | | | [address] | | | | | | [facility] [place] | | | | | | [address] | | | | | | [phone] | | | +--------+---------+ + + + [...] this encounter Patient Instructions Patient Instructions Gay Hoff, ERENDIRA,ANP - 02/22/2018 1:10 PM PDT PREOPERATIVE INSTRUCTIONS [...] or walk. Surgery check-in location: Admitting - [facility], ninth floor lobby Surgery Check in [...] it is after office hours, call the [facility] loom operator apprentice at [phone] and ask them to page him or h er. documented in this encounter Progress Notes Carlyle Dejesus MA - 02/22/2018 1:10 PM PDTVenipuncture performed in clinic, blood griselda ple obtained from Right hand site Gay Palm DNP, ANP - 02/22/2018 1:10 PM PDTFormatting of this [...] d function per TTE ( 02/16/2017) from [facility]: Improved and stable. T2DM - controlled with [...] renal failure no electrolyte abnormalities no dialysis Urology/Central Office Operator Supervisor: Within Defined Limits except as noted below [...] mg by mouth two times daily. CALCIUM CRB&HZY-V8-CWB14-GENIS ORAL Take 2 tablets by mouth two [...] 98ms, QTC 460ms, TTE ( 02/16/2017) - [facility] Key[facility] 1. Overall left ventricular systolic function is normal with, an EF between 60 - 65 %. 2. The right ventricle is normal in size and function. 3. No significant valvular abnormalities are noted. 4. In comparison to the previous (technically difficult) echocardiographic study done 01/01, no signfiicant changes are noted. TTE (02/17/2016) - [facility] Conclusions 1. There is normal left ventricular [...] and resp iratory change. TTE (11/07/2015) - [facility] Final Impressions: 1. The interpretation of [...] d function per TTE ( 02/16/2017) form [facility]. Improved and stable. - Confirmed with Dr. [...] Advised to bring her own apparatus for [facility]. GERD - On omeprazole. Chronic [...] to this patient's care. Gay Hoff DNP,ANP [facility] PREOPERATIVE MEDICINE [facility] 4TH FLOOR [address] [facility] [address] I spent time (45 minutes, >50% [...] | | 2019 | Visit | | [address] | | | | | | [address] | | | | | | [place], [place] | | | | | | [address] | | | | | | [phone] | | | | | | | [...] + +--------+ + + + | CT COLLECTION VENOUS | Routin | 02/22/2018 | [...] | [facility] | [address] [facility] | [place] [address] | | | SERVICES, CORE | [address] [...] [facility] | [address] | [place] [address] | | | SERVICES, | [address] [...] + + | [facility] | [address] [facility] | [place] [address] | | | SERVICES, | [address] [...] | [facility] | | considered for monitoring assisted glycemic control in patients with: | LABORATORY [...] | [facility] | [address] | [place] [address] | | | SERVICES, SPECIAL | CLARENCE [...] | | | LABORATORY | | | TAIWANESE | | | SERVICES, | | | [...] | [facility] | [address] | [place] [address] | | | SERVICES, CORE | CLARENCE [...] | [facility] | [address] | [place], [place] | | | CARDIOLOGY | [address] | [address] | | + + + + + documented in this encounter Visit Diagnoses + + | Diagnosis | + + | Preop examination - Primary Preoperative examination, unspecified | + + documented in this encounter
--- OUTSIDE RECORDS SUMMARY | ~2020-04-17 | XMS | Encounter Summary ---
Demographics + + + | Address | [address] | | | [place] [address] | + + + | Home Phone [...] [place], [place] | | | | | [address] | | + + + + + | Ellie Vang | ECON | Unknown | | + + + + + Care Team Providers + +------+ + | Care Title Insurance Agent Name | Role | Phone [...] | Encounter | [address] | [address] | | | | | [place], [place] | [address] | | | 08/23/ | | [address] | [place], [place] | | | 2019 | | [phone] | [address] | | | | | | [phone] | | | | | | | | | | | | Nay Joe, | | | | | | [address] | | | | | | [address] | | | | | | [place], [place] | | | | | | [address] | | | | | | [phone] | | | | | | | | | | | | Jones Woo, | | | | | | [address] [facility] | | | | | | [address] | | | | | | [place], [place] | | | | | | [address] | | | | | | [phone] | | | | | | | [...] the gallo. She was transitioned off her OPTOMECHANICAL ENGINEER on POD1. She di d have difficulty [...] condition. She will follow up at the [facility] with Dr. Woo in [...] by mouth once daily at bedtime. CALCIUM CRB&[id number]-C1-UHJ25-GENIS ORAL Take 2 tablets by mouth two [...] daily. ASK your doctor about these medications HEAD OF MARKETING ADOMETRY THYROID 30 mg Tab tab Generic drug: [...] the prescribed narcotic-opioid (e.g. oxycodone, hydrocodone, Vicodin, Purmela, Percocet, Dilaudid) as needed. However, Vicodin/Purmela and Percocet contain acetam inophen in the [...] Narcotic-opioid pain medications (e.g. oxycodone, hydrocodone, Vicodin, Purmela, Percocet, Di laudid) can be constipating, therefore you should take a stool softener on the same day as s tarting your narcotic pain medicine. Options include: Milk of Magnesia: 2 Tablespoons Twice daily Colace (=Docusate): 1 pill Twice daily Miralax: 1 Tablespoon (17 grams) daily (check bottle for mixing instructions) While these are some recommendations, any aztg-drm-uhtbphy stool softener should work, and generics are [...] and plan of care. JONES WOO MD [facility] [address] [place] [id number] documented in this encounter Discharge Instructions Discharge [...] hours by calling the surgery office at [phone]. After hours, weekends and holidays, you may call the hospital recovery unit operator at [phone] and have the surface to air weapons officer Green Team for general surgery paged. Discharge [...] the gallo. She was transitioned off her OPTOMECHANICAL ENGINEER on POD1. She did have dif ficulty [...] dition. She will follow up at the [facility] with Dr. Woo in [...] the prescribed narcotic-opioid (e.g. oxycodone, hydrocodone, Vicodin, Purmela, Percocet, Dilaudid) as needed. However, Vicodin/Purmela and Percocet contain acetam inophen in the [...] Narcotic-opioid pain medications (e.g. oxycodone, hydrocodone, Vicodin, Purmela, Percocet, Di laudid) can be constipating, therefore you should take a stool softener on the same day as s tarting your narcotic pain medicine. Options include: Milk of Magnesia: 2 Tablespoons Twice daily Colace (=Docusate): 1 pill Twice daily Miralax: 1 Tablespoon (17 grams) daily (check bottle for mixing instructions) While these are some recommendations, any wtjx-ggk-jpemmgj stool softener should work, and generics are fine to use. Increase your fluids, especially your intake of water Increase your activity. Walk frequently. ANTICOAGULATION: We recommend you make an appointment to be seen in your local anticoagulation clinic on Thu08/25/19 to recheck your INR and for ongoing management of your warfarin. FOLLOW-UP: Please call Dr. Woo's office ([phone]) to schedule a follow-up appointment for 2-3 [...] | | 0 | | | | [id number]&CVK-B2-BOU88-GEN | mouth two times | | | [...] + + +---------+ + + | thyroid (HEAD OF MARKETING ADOMETRY | Take 30 mg by mouth | [...] michelle Chandler MD Green Surgery, PGY-1 Green Allocation Analyst Pager: [phone] signed by Jones Woo MD at 08/22/2019 [...] Gadiel Chandler MD Green Surgery, PGY-1 Green Allocation Analyst Pager: [phone] Associated attestation - Jones Woo MD - 08/21/2019 9:57 AM PSTI performed a hist ory and physical examination of the patient and discussed her management with the resident. I reviewed the resident s note and agree with the documented findings and plan of care. JONES WOO MD [facility] [address] [place] [phone] Valencia Zamora MD - 08/20/2019 8:42 AM [...] well. - kilgore out today - dc OPTOMECHANICAL ENGINEER - ppx lovenox today - therapeutic lovenox [...] care -Multimodal pain control Joselyn Everett MD [facility] General Surgery PGY1 [id number] Gadiel Armstrong MD - 08/19/2019 12:34 PM [...] hernia repair with mesh Gadiel Chandler MD [facility], PGY-1 Green Allocation Analyst Pager: [phone] documented in this encounter H&P Notes Jones Woo MD - 08/18/2019 3:54 PM PST DEPARTMENT OF SURGERY Green Surgery History and Physical Patient: Dylan Romero ([id number]) Date: 08/18/2019 Chief Complaint: Abdominal pain History [...] days and worsening pain sp driving to [facility] from [place]. Past Surgical History Procedure Laterality Date Tonsillectomy and adenoidectomy Appendectomy, open 2010 Umbilical hernia repair 2010 Treatment of ankle fracture with screws remaining Incision and drainage of wound abscess x2 midline transverse wound s/p open appendectomy 2010 Ventral hernia repair 10/2012 Dr. Andie Brian Incisional hernia repair 03/01/2015 [facility]/ Dr. Cantu. Primary fascial closure and scar excision Lap gastric byp, and nish-en-y gastroenterostomy w/ nish limb 150 cm or less [facility], Dr Pandey Cholecystectomy, laparoscopic Past Medical History: [...] by mouth twice daily as needed. CALCIUM CRB&VVZ-O5-XLR41-GENIS ORAL Sig: Take 2 tablets by mouth [...] file Gets together: Not on file Attends zoroastrian service: Not on file Active member of club or organization: Not on file Attends meetings of clubs or organizations: Not on file Relationship status: Not on file Other Topics Concern Not on file Social History Narrative Updated 11/09/15 She lives in [place] with her mother and her sister (also her caregiver) lives in an apa rtment/duplex below. She has 2 grandchildren (age 4 and 7) who live with her daughter and son-in-law Her boyfriend lives in [place] HFpEF, DM2, HTN, Sleep Apnea (unable to [...] program here and refer her to our tax services specialist who also has expertise in physical [...] acute on chronic sp her travels to [place]. She is scheduled for surgery tomorrow. Admit [...] exacerbation of her pain with ride from [facility] is unusual. No acu te changes noted on exam or labs. Will plan to admit and control pain overnight and operat e in am. JONES WOO MD [facility] [address] [place] [place] [address] documented in this encounter Consult Notes [...] - Anticoagulation Clinic/Provider: PCP: Dr Davison at [facility], Edie han at [facility] Lab Date INR Warfarin Dose 08/23 [...] make recommendations. Please page clinical ph armacist (#[phone]) or call central inpatient pharmacy ([phone]) with questions. Megan Marx PharmD Candidate 2019 Associated attestation - Nicholas Davison PharmD - 08/23/2019 8:21 AM PSTI have personally reviewed the patients warfarin dosing and monitoring with the pharmacy technician assistant. I agree wi th their assessment and plan as outlined in the note. Thank you, Nicholas Davison PharmD Clinical Pharmacist [facility] Department of Pharmacy, CR 9-4 [address] [facility] [address] [place] [address] Pager: [phone] Megan Marx - 08/22/2019 10:06 AM PST [...] - Anticoagulation Clinic/Provider: PCP: Dr Davison at [facility], INRs complet ed at [facility] Lab Date INR Warfarin Dose 08/22 [...] make recommendations. Please page clinical ph andra (#[phone]) or call central inpatient pharmacy ([phone]) with questions. Megan Marx, PharmD Candidate 2019 Associated attestation - Nicholas Davison PharmD - 08/23/2019 8:17 AM PSTI have personally reviewed the patients warfarin dosing and monitoring with the pharmacy technician assistant. I agree wi th their assessment and plan as outlined in the note. Thank you, Nicholas Davison PharmD Clinical Pharmacist [facility] Department of Pharmacy, CR 9-4 [address] [facility] [place], [place] [address] Pager: [phone] Nicholas Davison PharmD - 08/20/2019 8:51 AM [...] and make recommendations. Please page clinical pharmacist (#[phone]) or call central inpatient pharmacy ([phone]) with questions Subjective/Objective: Allergies: Benadrilina [diphenhydramine hcl]; [...] note Thanks, Nicholas Davison PharmD Clinical Pharmacist [facility] Department of Pharmacy, CR 9-[address] [place], [place] [address] Pager: [phone] Gena Welsh - 08/18/2019 7:25 PM PST Pharmacy Services: Admission Medication Reconciliation Prior to Admission Medications: Prior to Admission Medications Prescriptions Last Dose Informant Patient Reported? Taking? ALPRAZolam 1 mg oral tablet 08/18/2019 at 05:00 Yes Yes Sig: Take 1 mg by mouth three times daily as needed. CALCIUM CRB&HTP-H0-[id number]-GENIS ORAL 08/17/2019 at PM Yes Yes Sig: [...] mouth two times daily. menthol/zinc oxide (GOLD RICHARD MEDICATED TOP) Yes Yes Sig: Apply to [...] 50 mg by mouth once daily. thyroid (HEAD OF MARKETING ADOMETRY THYROID) 30 mg oral tablet tab 08/17/2019 [...] regarding this information please contact pharmacy, pager [phone] Gena Price PharmD doyohan mented in this [...] 3 Hypoventilation associated with obesity ([facility]) 06/16/2013 Priority: 4 AMARA (obstructive sleep apnea) 04/14/2013 Priority: 4 Overview Note: Cannot tolerate CPAP Severe Morbid obesity ([facility]), BMI 88 11/12/2012 Priority: 4 Overview Note: Lifetime max: 495 lbs Phentermine started Type 2 diabetes mellitus ([facility]) 04/14/2013 Priority: 5 Iron deficiency anemia due to chronic blood loss 11/11/2015 Priority: 6 Overview Note: Ferritin 18 on 10/2015 Hypoalbuminemia (no proteinuria, need to rule out synthetic, nutrition, loss) 6 Priority: 6 Hypothyroidism 08/28/2014 Priority: 8 Hypothyroidism 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 03/10/2018 Morbid obesity with BMI of 70 and over, adult ([facility]) 02/02/2017 Chronic diastolic heart failure ([facility]) 02/02/2017 Immobility 02/02/2017 Severe muscle deconditioning 02/02/2017 Personal history of DVT (deep vein thrombosis) 02/02/2017 History of pulmonary embolism 02/02/2017 Benign essential HTN 02/02/2017 Diabetes mellitus type 2 without retinopathy ([facility]) 02/02/2017 Hyperlipidemia 02/02/2017 Ventral hernia without obstruction [...] to Bromocriptine Myalgia and myositis Bipolar disorder ([facility]) Depression Anemia Chronic wound infection of abdomen from 2010 Morbid obesity with body mass index of 70 and over in adult ([facility]) Incisional hernia, incarcerated 2012 Hernia of abdominal wall Dizziness Numbness Nausea Abdominal pain Shortness of breath Palpitations Kidney stone Leaking of urine Irregular periods Leg sore Anxiety Sleep apnea Hypothyroidism Morbid obesity ([facility]) Past Surgical History Procedure Date Tonsillectomy and adenoidectomy Appendectomy, open 2010 Umbilical hernia repair 2010 Treatment of ankle fracture with screws remaining Incision and drainage of wound abscess x2 midline transverse wound s/p open appendectomy 2010 Ventral hernia repair 10/2012 Dr. Andie Brian Incisional hernia repair 03/01/2015 [facility]/ Dr. Cantu. Primary fascial closure and scar excision Lap gastric byp, and nish-en-y gastroenterostomy w/ nish limb 150 cm or less 03/01/2018 [facility], Dr Pandey Cholecystectomy, laparoscopic Medications Prior to Admission Medications Prescriptions Last Dose Informant Patient Reported? Taking? ALPRAZolam 1 mg oral tablet Yes No Sig: Take 1 mg by mouth twice daily as needed. CALCIUM CRB&NZT-B0-HMG70-GENIS ORAL Yes No Sig: Take 2 tablets [...] history - former tobacco. Currently living at [facility]. Social History Tobacco Use Smoking status: Former [...] 1:56 PM PSTPt arrived by ambulance from [place], stating she is scheduled to have hernia surgery with Dr. Woo tomorrow. Reports worsening abd pain today, rates 7/10 and constant, with nausea. Last PO was at 1100 today. Mary Suarez RN - 08/18/2019 1:47 PM PSTBed: HW B Expected date: Expected time: Means of arrival: Comments: [id number] signed by Mary Hess RN at 08/18/2019 1:47 PM PSTdocumented [...] shift to promote sleep and rest. (08/22/191952) [facility] IP NURSE HANDOFF: Jiang hospital course events: [...] RN - 08/22/2019 6:18 PM PSTNursing Handoff [facility] IP NURSE HANDOFF: NURSING ASSESSMENT & RECOMMENDATIONS [...] pain managed to allow for sleep. (08/21/191929) [facility] IP NURSE HANDOFF: Jiang hospital course events: [...] bel managed to allow for sleep. (08/20/192015) [facility] IP NURSE HANDOFF: Jiang hospital course events: [...] -Home cpap @ night -Pain controlled with [id number] Q4hr PRN -VSS -Ad jelena -REG diet -Periwound skin of incisions reddened. Continue to monitor. Lidocaine patch placed on abdom en for severe tenderness. Barriers to discharge: Pain management lan of Care - Micah Nieto, PT - 08/20/2019 3:55 PM PST Physical Therapy Evaluation and Discharge 08/20/2019 3:55 PM Hospital Day: 2 [id number] DYLAN ROMERO Date of : 1975 Start of care: 08/18/2019 Referring/Attending Practitioner: Jones Woo MD Primary/Referral Diagnosis/ICD-9: K43.9 Ventral hernia without obstruction or gangrene E66.01 Severe Morbid obesity (HCC), BMI 88 K46.0 Incarcerated hernia Insurance: Payor: [facility] [place] MED[place] / Plan: [facility] [place] / Product Type: Medicaid / [...] to go home, reduce pain Communication: appropriate, slovenian Barriers: recurrent hernias Pain: 03/05 at incision [...] x1 down per patient request. Outcome Measure: [facility] BASIC MOBILITY Difficulty turning over in bed [...] A Little - Minimal/Contact Guard Assist/Superv ision [facility] Basic Mobility Total Score 23 Interpretation of [facility] Short Form - Basic Mobility: CMS Modifier [...] serve as the discharge summary. andoff - Vinicius Osorio RN - 08/20/2019 4:13 AM PSTNursing Handoff [facility] IP NURSE HANDOFF: Jiang hospital course events: [...] by: Gisellas pain is well controlled with OPTOMECHANICAL ENGINEER. She is tolerating well. Recommendations Forward: -Home cpap approved for use in hospital -Pain control with hydromorphone OPTOMECHANICAL ENGINEER -Kilgore catheter in place Barriers to discharge: -OPTOMECHANICAL ENGINEER for pain control -MIVF -Kilgore catheter p Note - Mary Theodore MD - 08/19/2019 6:26 PM PSTDate of Service: 08/19/2019 Attending Surgeon: Jones Woo MD Auditor(s): [place] Theodore MD Preoperative Diagnosis: Incarcerated incisional [...] the case. MD Jones Rivera MD NK/MODL /[id number] I was present for the hernia repair JONES WOO MD [facility] [address] [place] [place] [address] rief Op Note - Nicholas Daily MD - 08/19/2019 5:18 PM PST Date of procedure: 08/19/2019 Times Event Time In Procedure Start ThuAug 19, 2019 1458 Location: [facility] Surgeon(s) and Role: * Jones Woo MD - Primary Staff: Biodiesel Division Manager: Angelica Ga RN Scrub: ST Dwayne Biodiesel Division Manager Relief: Amy Vega RN Scrub Relief: ST Renetta Doweling Machine Operator: Nicholas Theodore MD Pre Op Dx INCARCERATED [...] Additional pain medication information: Functional Epidural: No OPTOMECHANICAL ENGINEER: Yes Respiratory: RR: 18 , O2 Sat: 97 % , O2 Delivery: None (room air) Breath Sounds: Ex (amara with BIPAP) ALFRED: LLL: RUL: RLL: AMARA Yes Comment: no apneic breathing noticed Cardiac: BP: 128/73 HR: 74 GI: Nausea/Vomiting Status: No Signs/Symptoms: Interventions: Assessment: Comments: remains NPO : Last void: Kilgore draining Contact Name: Katalina Padilla Contact Number: [phone] (OK to leave message per patient) Family contacted: Yes Comment: Pt has spoken with her mom Belongings: in room andoff - Alberto Osorio RN - 08/19/2019 3:10 AM PSTNursing Handoff [facility] IP NURSE HANDOFF: Jiang hospital course events: [...] Provider Name: Dr. Gonzalez Referring Provider Specialty/Clinic: [facility] surgery clinic Contact Number: [phone] to contact provider: Pager Callback required?: no Reason for callin44 y/o F w/ incarcerated hernia since January, presenting with acutely worsening pain, concern for ischemic hernia. Arriving by ambulance. Gadiel Hendricks PA-C Department of emergency medicine [phone] signed by Gadiel Hendricks PA-C at 08/18/2019 1:33 PM PSTComm Teresa Jaramillo - 08/18/2019 1:28 PM [id number] Just talked to Dr Woo, he req tx to [facility] due to pt having hernia surg BP 134/84 Sat 98% ra, HR 112 ETA 15 min. documented in this encounter Plan of Treatment +--------+---------+ + + + | Date | Type | Specialty | Care Team | Description | +--------+---------+ + + + | 06/08/ | Office | Plastic Surgery | Antoinette Hale, | | | 2019 | Visit | | [address] [facility] | | | | | | [facility] | | | | | | [place], [place] | | | | | | [address] | | | | | | [phone] | | | | | | | [...] [facility] | [address] | [place] [address] | | | SERVICES, CORE | PARK [...] | + + + + + | [facility] | [address] [facility] | [place] [address] | | | SERVICES, CORE | PARK [...] | + + + + + | [facility] | [address] | [place] [address] | | | SERVICES, CORE | [address] [...] [facility] | [address] | [place], [place] | | | [facility] | [facility] | [address] | | | TESTS | | | | + + + + + CAPILLARY BLOOD GLUCOSE (NO CHG), POC (08/19/2019 1:28 PM PST) + +-------+ + + + | Component | Value | Ref Range | Performed | Pathologist | | | | | At | Signature | + +-------+ + + + | BLOOD | 94 | 70 - 99 mg/dL | [facility] - | | | GLUCOSE, | | [...] [facility] | [address] | [place], [place] | | | [facility] OF [facility] | [address] | [address] | | | TESTS | | | [...] + + + + | [facility] | [address] | [place] [address] | | | SERVICES, | [address] [...] | + + + + + | [facility] | [address] | [place] [address] | | | CLAIRE | [address] | | | | TRANSFUSION MEDICINE | | | | + + + + + BG-LACPOC ISTAT (08/18/2019 4:32 PM PST) + + + + + + | Component | Value | Ref Range | Performed | Pathologist | | | | | At | Signature | + + + + + + | TOTAL CO2 | 23 | 23 - 29 mmol/L | [facility] - | | | JEMAL POC | | | [facility] | | [...] [facility] | [address] | [place], [place] | | | [facility] OF CARE | [address] | [address] | | | TESTS | | | [...] | [facility] | | | GRAVITY | Tracy performed by | | LABORATORY | | [...] | + + + + + | [facility] | [address] | [place] [address] | | | SERVICES, CORE | PARK [...] [facility] | [address] | [place] [address] | | | SERVICES, | [address] [...] + + + + | [facility] | [address] | [place] [address] | | | SERVICES, CORE | LESLY [...] + + + + | [facility] | [address] | [place] [address] | | | SERVICES, CORE | PARK [...] | + + + + + | [facility] | [address] | [place] [address] | | | SERVICES, CORE | LESLY [...] LABORATORY | [address] | [place] [address] | | | SERVICES, CORE | [address]ES[address] [...] | + + + + + | [facility] | [address] | [place] [address] | | | SERVICES, CORE | [address] | | | + + + + + ED INFORMATION EXCHANGE (08/18/2019 1:47 PST) + + | Specimen | + + | | + + + + + | Narrative | Performed At | + + + | COLLECTIVE?NOTIFICATION?08/18/2019 13:47?DYLAN ROMERO?MRN: | COLLECTIVE | | [id number] Criteria Met 5 Visits In 12 Months Has | MEDICAL | | Guidelines PDMP Security and Safety No recent Security Events | [employer] | | currently on file ED Care Guidelines from [facility] | | | Last Updated: 12/06/18 9:53 AM Care Coordination: Receiving | | | mental health services with [facility].? Please contact [employer] for | | | mental health concerns.? Sarah/Toni Centeno: [phone]? | | | Kishan: [phone].? These are guidelines and the provider | | | should exercise clinical judgment when providing care. Care | | | History Medical/Surgical 05/24/19 12:00 AM [facility] | | | [facility] PATIENT HAS AN APT ON 06/16/[address] CARDENAS. | | | 05/11/19 12:00 AM [facility] Patient is | | | currently established with [facility]. If patient is seen in | | | the ED during business hours. Please contact [facility] at [facility] | | | Clinic. Care [...] care. 08/23/18 12:00 AM | | | [facility] PATIENT HAS A PCP APT TO ESTABLISH | | | CARE ON 10/04/18 @ 10:00AM WITH DR CARDENAS. Flags | | | [place] Disparity [place] - [place] a flag ([place] | | | Disparity Measure) to help support Medicaid members with mental | | | illness. [facility] uses claims data with a 36-month | [...] | are updated weekly. / Attributed By: [facility] ([facility]) / | | | Attributed On: 08/09/2019 Prescription Drug Report (12 Mo.) | | | Rx Details Fill Date Drug Description Qty. Prescriber MED | | | 2019-08-16 HYDROCODONE-ACETAMIN 5-325 [...] 12 HOUR 120 MG CAPLET 30 MARCO APPIAH, PA-C 0 2019-05-17 | | | ALPRAZOLAM [...] (12 | | | mo.) Facility Visits [facility] 1 [facility] | | | [facility] 2 [facility] 7 Total 10 Note: | | | Visits indicate total known visits. Recent Emergency Department | | | Visit Summary Date Facility City State Type Diagnoses or Chief | | | Complaint Aug 18, 2019 [facility] [place] | | | [place] Emergency 10,800. amr Jun 25, 2019 [facility] | | | [place] Emergency jail (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 | | | Anxiety disorder, unspecified Cellulitis of abdominal wall | | | Acute embolism and thrombosis of deep veins of r up extrem | | | Nicotine dependence, unspecified, uncomplicated Migraine, unsp, | | | not intractable, without status migrainosus Unspecified | | | abdominal pain Allergy status to oth drug/meds/biol subst status | | | Other shelter (current) drug therapy Allergy status to | | | penicillin Jun 19, 2019 [facility] 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 | | | 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 Emergency | | | 10,800. A303 18,400. Bariatric surgery status 18,400. | | | Ventral hernia without obstruction or gangrene 18,400. Nausea | | | with vomiting, unspecified 18,400. Unspecified abdominal pain | | | 18,400. Nonspecific mesenteric lymphadenitis May 10, 2019 [facility] [place] Emergency Nausea with vomiting, | | | unspecified Solitary pulmonary nodule Anxiety disorder, | | | unspecified Ventral hernia without obstruction or gangrene | | | Unspecified abdominal pain Diarrhea, unspecified Allergy | | | status to oth drug/meds/biol subst status Prsnl hx of TIA (TIA), | | | and cereb infrc w/o resid deficits Other long chain beamer (current) | | | drug therapy Allergy status to penicillin December 03, 2018 Good | | | [facility]. [place] Emergency RIGHT LEG PAIN DUE TO FALL | | | Strain of unsp musc/tend at lower leg level, right leg, init | | | Aug 22, 2018 [facility] [place] Emergency Other | | | long chain beamer (current) drug therapy Upper abdominal pain, | | | unspecified Bariatric surgery status Allergy status to oth | | | drug/meds/biol subst status Noninfective gastroenteritis and | | | colitis, unspecified Obesity, unspecified Anxiety | | | disorder, unspecified jail (current) use of aspirin | | | Allergy status to penicillin Personal history of pulmonary | | | embolism Recent Inpatient Visit Summary No recorded | | | inpatient visits. Care Team Provider Specialty Phone Fax Service | | | Dates Eagle Nino CHW Community Health Worker | | | Jul 03, 2019 - Current JONES DAVISON D.M.D. Dentist: | | | Paper Gluing Operator May 23, 2019 - | | | Current Rob Tilley Director Index/Drier Tender ([id number]) | | | [phone] Mar 27, 2018 - Current Bernard Cardenas MD Internal | | | Medicine: Pulmonary Disease Aug 23, 2018 - Current | | | [employer] This patient has registered at the [facility] | | | [facility] Emergency Department For more information | | | visit: | | | [email or web address] | | | [email or web address] a PLEASE NOTE: 1. Any care recommendations [...] or completeness of information provided. ? 2020 [employer] | | | [employer]. - [email or web address] | | + + + [...] on fileED Care Guidelines | | from [facility] - [place] Updated: 12/06/18 9:53 AM Care Coordination:Receiving | | mental health services with [facility].? Please contact [employer] for mental health | | concerns.? Sarah/Toni Centeno: [phone]? Kishan: [phone].?These are | | guidelines and the provider should exercise clinical judgment when providing care.Care | | HistoryMedical/Xkrfbclc08/29/19 12:00 AM [facility] PATIENT HAS AN APT | | ON 06/16/[address] CARDENAS.05/11/19 12:00 AM [facility] Patient is | | currently established with [facility]. If patient is seen in the ED during | | business hours. Please contact CHWs at [facility].Care Recommendation:This | | patient has had 5 [...] when providing | | care.08/23/18 12:00 AM [facility] PATIENT HAS A PCP APT TO ESTABLISH CARE | | ON 10/04/18 @ 10:00AM WITH DR CARDENAS. Flags [place] Disparity [place] - [place] | | developed a flag ([place] Disparity Measure) to help support Medicaid members with | | mental illness. [facility] uses claims data with a 36-month rolling look | | back period to identify members who have had two or more diagnoses of mental illness | | (does not need to be primary) in any setting (e.g. ED, Inpatient, primary care). Flagged | | members are included in the ED Disparity Measure denominator population. Flags are | | updated weekly. / Attributed By: [place] [facility] / Attributed On: | | 08/09/2019 Prescription Drug Report (12 Mo.)Rx DetailsFill Date Drug Description Qty. | | Prescriber MED 2019-08-16 HYDROCODONE-ACETAMIN 5-325 MG 10 SAMANTHA LEPE, DMD 2 16.667 | | 2019-08-12 ALPRAZOLAM 1 MG TABLET 90 WINSTON JEFFAS 4 0 2019-08-02 SUDAFED 12HR 120 MG | | CAPLET 30 JONES LANEY JR. 0 2019-07-26 FENTANYL 12 MCG/HR PATCH 10 BETZY BALDWIN | | JAVIER 2 0 2019-07-12 ALPRAZOLAM 1 MG TABLET 60 WINSTON JEFFAS 4 0 2019-07-10 SUDOGEST 12 | | HOUR 120 MG CAPLET 30 JONES LANEY JR. 0 2019-06-28 FENTANYL 12 MCG/HR PATCH [...] 0 E.D. Visit Count (12 mo.)Facility Visits [facility] 1 [facility] | [facility] 2 [facility] 7 Total 10 Note: Visits indicate | | total known visits. Recent Emergency Department Visit SummaryDate Facility City State | | Type Diagnoses or Chief Complaint Aug 18, 2019 [facility] | | [place] Emergency 10,800. amr Jun 25, [address] [facility] [address] [facility] 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 [facility] [place] Emergency jail | | (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 Prsnl [...] unspecified Jun 01, 2019 | | [facility] 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 [facility] | | 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 Emergency | | 10,800. A303 18,400. Bariatric surgery status 18,400. Ventral hernia without | | obstruction or gangrene 18,400. Nausea with vomiting, unspecified 18,400. | | Unspecified abdominal pain 18,400. Nonspecific mesenteric lymphadenitis May 10, 2019 | | [facility] [place] Emergency Nausea with vomiting, unspecified Solitary | | pulmonary nodule Anxiety disorder, unspecified Ventral hernia without obstruction | | or gangrene Unspecified abdominal pain Diarrhea, unspecified Allergy status to | | oth drug/meds/biol subst status Prsnl hx of TIA (TIA), and cereb infrc w/o resid | | deficits Other shelter (current) drug therapy Allergy status to penicillin November | | 2018 [facility]. [place] Emergency RIGHT LEG PAIN DUE TO FALL | | Strain of unsp musc/tend at lower leg level, right leg, init Aug 22, [address] [address] [facility] [facility] [place] Emergency Other shelter (current) drug therapy Upper | | abdominal pain, unspecified Bariatric surgery status Allergy status to oth | | drug/meds/biol subst status Noninfective gastroenteritis and colitis, unspecified | | Obesity, unspecified Anxiety disorder, unspecified jail (current) use of | | aspirin Allergy status to penicillin Personal history of pulmonary embolism | | Recent Inpatient Visit SummaryNo recorded inpatient visits. Care TeamProvider Specialty | | Phone Fax Service Dates Eagle Nino CHW Community Health Worker | | Jul 03, 2019 - Current LANEY, JONES D, D.M.D. Dentist: Paper Gluing Operator ([id number]) | | [phone] May 23, 2019 - Current Rob Tilley Director Index/Care | | Coordinator Mar 27, 2018 - Current Bernard Cardenas MD Internal Medicine: | | Pulmonary Disease Aug 23, 2018 - Current [employer] [facility]ly named [facility] patient has registered | | at the [facility] Emergency Department For more information | | visit: [email or web address] | | PLEASE NOTE: 1. Any care [...] completeness of information | | provided.? 2019 [employer]. - www.[employer] | | Allergy status to oth drug/meds/biol subst status | | Other long chain beamer (current) drug therapy | | Allergy status to penicillin | | | |Jun 19, 2019 [facility] 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 [place] Emergency | | Anxiety disorder, unspecified | | Acute embolism and thrombosis of deep veins of r up extrem | | Allergy status to penicillin | | Other shelter (current) drug therapy | | Pain in right arm | | jail (current) use of aspirin | | Allergy status to oth drug/meds/biol subst status | | | |May 20, 2019 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 Emergency | | 10,800. A303 | | 18,400. Bariatric surgery status | | 18,400. Ventral hernia without obstruction or gangrene | | 18,400. Nausea with vomiting, unspecified | | 18,400. Unspecified abdominal pain | | 18,400. Nonspecific mesenteric lymphadenitis | | | |May 10, 2019 [facility] [place] Emergency | | Nausea with vomiting, unspecified | | Solitary pulmonary nodule | | Anxiety disorder, unspecified | | Ventral hernia without obstruction or gangrene | | Unspecified abdominal pain | | Diarrhea, unspecified | | Allergy status to oth drug/meds/biol subst status | | Prsnl hx of TIA (TIA), and cereb infrc w/o resid deficits | | Other long chain beamer (current) drug therapy | | Allergy status to penicillin | | | |December 03, 2018 [facility]. 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 | | | |Care Team | |Provider Specialty Phone Fax Service Dates | |Eagle Nino CHW Community Health Worker Jul 03, 2019 - Current | |JONES DAVISON D.M.D. Dentist: Paper Gluing Operator May 23 019 - Current | |Rob Tilley Director Index/Drier Tender Mar 27, 2018 - Current | |Bernard Cardenas MD Internal Medicine: Pulmonary Disease Aug 23, 2018 - Current | | | |[employer] Portal | |This patient has registered at the [facility] Emergency Departmen t | |For more information visit: [email or web address] | |PLEASE NOTE: | | 1. Any [...] information provided. | | | |? 2020 [employer]. - www.[email or web address] | + + + + + + + | Performing | Address | City/State/Zipcode | Phone Number | | Organization | | | | + + + + + | [employer] | [address] | [place], [place] | [phone] | | [employer] | [address] | [address] | | + + + + + [...] NEEDED, Starting Jasmyne 08/18/19 at | | AM PST [...] | | | DAILY, First dose on [facility] 08/18/19 | | AM PST | | [...] + + +---+---+---+ | HYDROmorphone 0.5 mg/mL OPTOMECHANICAL ENGINEER | Rate/Dos | 08/20/19 | | | | | (ADULT STANDARD DOSE) in 0.9 % | e Verify | 20 4:12 | | | | | NaCl OPTOMECHANICAL ENGINEER Dose: 0.2 mg, Lockout | | AM [...] | | | | ONCE, 1 dose, [facility] 08/18/19 at 1530 | | PM [...] | | First dose on [facility] 08/18/19 at | | PM PST [...] | | | oral, ONCE, 1 dose, [facility] 08/20/19 | | PM PST | | | | | at 1530 | | | | | | + +-------+ +------+---+---+ +---+---+ | | | +---+---+ + +-------+ +------+---+---+ | oxyCODONE (immediate release) | Given | 08/21/19 | 5 mg | | | | (ROXICODONE) tablet 5 mg 5 mg, | | 20 3:29 | | | | | oral, ONCE, 1 dose, [place] 08/21/19 | | PM PST | | [...] tablet 1 dose, | | | Starting Jasmyne 08/18/19 at 1853, | | | Until Jasmyne 08/18/19 at 1915 | | + +---+ | | | + +---+ + +-------+ +-------+---+---+ | PARoxetine (PAXIL) tablet 40 mg | Given | 08/22/19 | 40 mg | | | | 40 mg, oral, AT BEDTIME, First | | 20 8:26 | | | | | dose on Jasmyne 08/18/19 at 2200, | | PM PST [...] +-------+ +------+---+---+ +-------+ +------+---+---+ | Given | 01/27/20 | 5 mg | | | | [...] | | First dose on [facility] 08/18/19 at | | AM PST [...]
--- OUTSIDE RECORDS SUMMARY | ~2020-04-17 | XMS | Encounter Summary ---
Demographics + + + | Address | [address] | | | [place] [address] | + + + | Home Phone [...] [place], [place] | | | | | [address] | | + + + + + | Ellie Vang | ECON | Unknown | | + + + + + Care Team Providers + +------+ + | Care Nanoelectronics Engineer Name | Role | Phone | [...] 2018 | Visit | Center at [facility] [address] [facility] | obesity ([facility]), BMI | | | | [facility] | [address] | 88 (Primary Dx); | | | | for [employer] and | [place], [place] | Type 2 diabetes | | | | Healing, [facility] | [address] | mellitus without | | | | [facility] [place] | [phone] | complication, with | | | | [address] | | long-term current | | | | [phone] | | use of insulin | | | | | | ([facility]); S/P gastric | | | | [...] Follow-Up Patient referred [place]: [place] [address] Documented time of visit: 1:30 to 2:00 (30 minutes pesh-yk-bcby with patient) Surgery: Gastric Bypass Date of [...] multivitamin & mineral (with iron) supplement, 2/day -5645-9848 mg calcium citrate with vitamin D/day (take [...] in [address],[place] Pager# [phone] Phone: [phone] documented in this en counter Plan of [...] Rd | | | | | | [place], [place] | | | | | | [address] | | | | | | [phone] | | | | | | | | +--------+---------+ + + + documented as of this encounter Procedures + +--------+ + + + | Procedure Name | Priori | Date/Time | Associated Diagnosis | Comments | | | ty | | | | + +--------+ + + + | MI MNT RE-ASSESSMNT | Routin | 03/10/2018 | [...]
--- OUTSIDE RECORDS SUMMARY | ~2020-04-17 | XMS | Encounter Summary ---
Demographics + + + | Address | [address] | | | [place] [address] | + + + | Home Phone [...] [place], [place] | | | | | [address] | | + + + + + | Ellie Vang | ECON | Unknown | | + + + + + Care Team Providers + +------+ + | Care Veterinary Radiologist Name | Role | Phone | + [...] Order | [address] [place], [place] | | | | | [address] | [address] | | | | | Francesco Lar[place], | [phone] | | | | | 4th floor [place], | | | | | | [place] [address] | | | | | | [phone] | | | +--------+ + + + [...] 06/08/ | Office | Plastic Surgery | Yaneth Hal[place], | | | 2019 | Visit | | [address] [facility] | | | | | | [address] | | | | | | [place], [place] | | | | | | [address] | | | | | | [phone] | | | | | | | | +--------+---------+ + + + documented as of this encounter Results EGD (06/23/2018 3:58 PM PST) + + | Specimen | + + | | + + + +--------- -----+ | Narrative | Performe d At | + +--------- -----+ | MRN: Analisa ARBOLEDA | | [id number] Date: 06/23/2018Patient Name: Elzbieta BunchOrder #: | ENDOSCOP Y | | [id number] of : 1975CSN: [id number] Type: | | | AmbulatoryRoom: SORProcedure: Upper GI | | | endoscopyIndications: Nausea with vomiting, Status post | | | Qbkt-it-ZShodaccmp: KALEB MILES MD (Doctor), JOSE | | | NASIMA, Paper Box Cutter | | | (Paper Box Cutter)Referring MD: DANIELLE GARCÍAPRemateusz | | | Provider: [...] | | | The Olympus [id number] Gastroscope #[id number] was | | | introduced through the [...] endoscope without resistance. The | | | kcskv-mv-byxhggp limb was characterized by healthy appearing | [...] 06/23/2018 3:58 [facility] Letter to: RADHA MICHAEL DO [...]
--- OUTSIDE RECORDS SUMMARY | ~2020-04-17 | XMS | Encounter Summary ---
Demographics + + + | Address | [address] | | | [place] [address] | + + + | Home Phone [...] + | Katalina Padilla | ECON | [address] | | | | | [place], [place] | | | | | [address] | | + + + + + | Ellie Vang | ECON | Unknown | | + + + + + Care Team Providers + +------+ + | Care Lead Etl Developer Name | Role | Phone [...] | | 2012 | | Center at [facility] [address] | [address] | | | | | [address] | Ave [place], [place] | | | | | for Health and | [address] | | | | | [facility] | | | | | | [place], [place] | | | | | | [address] | | | | | | | [...] | | 2019 | Visit | | [address] | | | | | | [address] | | | | | | [place], [place] | | | | | | [address] | | | | | | [phone] | | | | | | | | +--------+---------+ + + + documented as of this encounter Visit Diagnoses Not on filedocumented in this encounter"
--- OUTSIDE RECORDS SUMMARY | ~2020-04-17 | XMS | Encounter Summary ---
Demographics + + + | Address | [address] | | | [place] [address] | + + + | Home Phone [...] [place], [place] | | | | | [address] | | + + + + + | Ellie Vang | ECON | Unknown | | + + + + + Care Team Providers + +------+ + | Care Application Integration Specialist Name | Role | Phone | [...] Anesthesia | 6A Intra Op [id number] | Jhoan Molina, | | | 2012 | Event | [address] | | | | | | [facility] | | | | | | [facility] Admitting | | | | | | Desk Located on the | | | | | | 9th floor | | | | | | [place], [place] | | | | | | [address] | | | +--------+ + + + + Anesthesia Record + + + + + | Procedure Name | Responsible | Anesthesia Start | Anesthesia Stop Time | | | Anesthesiologist | Time | | + + + + + | repair incarcerated | Jhoan Molina MD | 11/06/12 1019 | 11/06/12 1417 [...] 18; Left; Hand; None; No; | Adriana Medrano MD | Geneva Kohli RN | | [...] encounter OR Notes Anesthesia Postprocedure Evaluation - Adriana Medrano MD - 11/06/2012 2:17 PM PDTFormattin g of this note might be different from the original. Elzbieta Cristina [id number] Allergies Allergen Reactions Amoxicillin Benadrilina (Diphenhydramine Hcl) Past Surgical History Procedure Date Tonsillectomy and adenoidectomy Appendectomy, open 2010 Umbilical hernia repair 2010 Treatment of ankle fracture with screws remaining Incision and drainage of wound abscess x2 midline transverse wound s/p open appendectomy 2010 Evaluation ROS including card, resp, Neuro, and GI w/o evidence of adverse effects, Patient personally seen and evaluated for recovery from anesthesia care and VS including temperature and hydra tion status are normal Complications nesthesia Preprocedur e Evaluation - Adriana Medrano MD - 11/06/2012 10:18 AM PDT Elzbieta Cristina [id number] Allergies Allergen Reactions Amoxicillin Benadrilina (Diphenhydramine Hcl) NPO: Last Vitals: Preg Status/LMP: Patient Active Problem List Diagnoses Hernia Past Surgical History Procedure Date Tonsillectomy and adenoidectomy Appendectomy, open 2010 Umbilical hernia repair 2010 Treatment of ankle fracture with screws remaining Incision and drainage of wound abscess x2 midline transverse wound s/p open appendectomy 2010 Current Medication List Name Sig Last Dose ALPRAZOLAM ER 3 MG TABLET,EXTENDED RELEASE 24 HR Take 3 mg by mouth once daily in the morni ng. ASCORBIC ACID 500 MG TABLET Take 500 mg by mouth once daily. EXCEDRIN BACK & BODY ORAL Take by mouth four times daily as needed. CLINDAMYCIN 300 MG CAPSULE Take 2 Caps by mouth every eight hours. FERROUS SULFATE 325 MG (65 MG IRON) TABLET Take 325 mg by mouth two times daily. FLUOXETINE 40 MG CAPSULE Take 40 mg by mouth once daily. HUMULIN 70/30 SUBQ Inject 50 cc under the skin (SUBC) once daily. METFORMIN 1,000 MG TABLET Take 1,000 mg by mouth once daily. ZYPREXA ORAL Take 30 mg by mouth once daily. PIROXICAM 20 MG CAPSULE Take 20 mg by mouth once daily. PLUS ORAL Take by mouth. RANITIDINE 300 MG TABLET Take 300 mg by mouth once daily at bedtime. TORSEMIDE ORAL Take 40 mg by mouth two times daily. TRAZODONE 150 MG TABLET Take 150 mg by mouth once daily at bedtime. No results found for this basename: rate, atrialrate, pr, qrs, qt, qtc, paxis, raxis, taxis , ekgdx Preoperative Adult Anesthesia Plan Last edited 11/06/12 1018 by Adriana Medrano MD ROS Pulmonary: Pt. Has no asthma Dx of sleep apnea Declines BiPap/CPAP sleep apnea pt. at high risk of AMARA Cardiovascular: Functional Capacity: Low no CAD hypertension no pacemaker GI/Hepatic: Hx of ventral hernia repair, now with tenderness, N/V, thought to be incarcerated GERD Control: Poorly controlled No liver disease : Within Defined Limits except as noted below Endo: Diabetes: type 2, well controlled Neurological: Stroke when she was 18 after she took a "medication that dried up her breast milk." Bipolar Sign/Sx psychiatric problem Current pain level: 7 MS: arthritis Heme/Onc: Skin: Physical Exam General: Patients general appearance: Mild distress Head & Neck/Airway: TM Distance:< 6cm Dentition: dentition is normal Dental risk discussed with/pt : Yes Mallampati: III Mouth Opening: > = 3 cm C-Spine: normal Neck Anatomy: Thick, obese Jaw Protrusion: Normal, lower incisors can protrude past upper incisors Lung Exam: breath sounds normal Cardiac: Rhythm: regular Rate: normal Abdominal: General Findings: Deferred Musculoskeletal: Findings: tone normal Neuro/Psych: alert Integument: Implants: Anesthesia Plan Comments ASA ASA 3 NPO Status NPO Status: NPO by protocol Monitors/Lines to be used Standard, Art line and CVP Anesthetic Consideration Post-op ICU, Increased Aspiration Risk, Preop antibiotics, Premeds, IV when asleep and PONV prophylaxis Induction intravenous induction Anesthetic Technique General; Post-Op Pain Plan IV analgesics; Blood Products T and S; Interpretive Services Informed Consent PARQ discussed with: patient, Procedures, Alternatives, Risks, and Questions discussed and Risk/benefit of anesthesia plan and blood product discussed Code status in OR Patients Code Status in OR: FULL 11/06/2012 10:18 AM documented in this encounter Miscellaneous Notes Ane airway standard - Adriana Medrano MD - 11/06/2012 12:36 PM PDTProcedure Reason for Intubation: For surgical procedure, Location Performed: OR , Patient was preoxyg enated Mask Ventilation Grade 0 - Ventilation by mask not attempted Rapid Sequence Induction: with cricoid Intubation Blade type: Other Other blade type: glidescope, Atraumatic laryngoscopy: Atraumatic Laryngo scopy, Intubation adjuncts: Ramp , Laryngoscopic view: Grade I, Fiberoptics used: Glidescope , Number of Attempts: 2, Positive for EtCO2: Yes, Breath sounds: Bilateral and equal Prior intubation attempts: Blade type: Other Other blade type: glidescope, Atraumatic Laryngoscopy: second Atraumatic Laryngoscopy, Intubation adjuncts: N/A, , Laryngoscopic view: Grade I, Fiberoptics used: Gli descope ETT Ett Adult: Single-lumen cuffed ETT Size: 7 ETT secured with: adhesive tape Depth at Lip: 22 cm LMA Narrative Attending physically present Attending: JHOAN MOLINA Performed by Resident PHI MEDRANO ne Central Venous Monet Adriana Severino MD - 11/06/2012 12:35 PM PDTProcedure Information Central Venous Line Double-Stick: No Type Catheter:Triple lumen Location Performed: OR, Indications: Assessment of intravascular volume Informed Consent: Included in anesthesia consent, Protective Barrier: Cap, Mask, Gown, Full-body drape, Hand scrub and Gloves Vein locater technique: Ultrasound Guidance Ultrasound image: Saved Prep: ChloraPrep, Draped: Fully draped Anesthesia Method: General anesthesia, Insertion side: Right Insertion Site: Internal Jugular, Access device: 18g, angiocath Position confirmation: Ultrasound Catheter size: 7 Fr Catheter length: 15/16 cm Insertion distance: 16 cm Port flush: Saline All Ports Aspirated for Blood Line secured with: Suture Procedure Documentation Introducer Information Assessment Number of attempts: 1st Complications: None Attending physically present Attending: JHOAN MOLINA Performed by Resident ADRIANA MEDRANO rterial Line - Adriana Rocha MD - 11/06/2012 12:09 PM PDTProcedure ART LINE Procedure Information Inserted: After Induction 5 minutes to perform. Type Catheter: Arrow kit Indications: Beat to beat blood pressure monitoring Location Performed: [place] Informed Consent: Included in anesthesia consent Protective Barrier: Cap, Mask, Hand scrub and Sterile Gloves Draped: Partially draped Anesthesia Method: General anesthesia Insertion side: Left Insertion Site: Radial Access device: 20g Line secured by:Sutured, Taped and Dressing Applied Assessment Number of attempts: 1st Complications: None Assessment: Catheter connected to pressure line and flushed, catheter manually flushed, Kareem erated procedure well and Perfusion checked distal to catheter Attending physically present Attending name: JHOAN MOLINA Performed by Resident Name: RUDI NESS atraumatic placement. No complications noted [facility]/ANE PreOp Note - Adriana Medrano MD - 11/06/2012 10:11 AM PDT ROS Pulmonary: Pt. Has no asthma Dx of sleep apnea Declines BiPap/CPAP sleep apnea pt. at high risk of AMARA Cardiovascular: Functional Capacity: Low no CAD hypertension no pacemaker GI/Hepatic: Hx of ventral hernia repair, now with tenderness, N/V, thought to be incarcerat ed GERD Control: Poorly controlled No liver disease : Within Defined Limits except as noted below Endo: Diabetes: type 2, well controlled Neurological: Stroke when she was 18 after she took a "medication that dried up her breast milk." Bipolar Sign/Sx psychiatric problem Current pain level: 7 MS: arthritis Heme/Onc: Skin: Physical Exam General: Patients general appearance: Mild distress Head & Neck/Airway: TM Distance:< 6cm Dentition: dentition is normal Dental risk discussed with/pt : Yes Liz mpati: III Mouth Opening: > = 3 cm C-Spine: normal Neck Anatomy: Thick, obese Jaw Protrusio n: Normal, lower incisors can protrude past upper incisors Lung Exam: breath sounds normal Cardiac: Rhythm: regular Rate: normal Abdominal: General Findings: Deferred Musculoskeletal: Findings: tone normal Neuro/Psych: alert Integument: Implants: documented in this enc ounter Plan of Treatment +--------+---------+ + + + | Date | Type | Specialty | Care Team | Description | +--------+---------+ + + + | 06/08/ | Office | Plastic Surgery | Antoinette Hale, | | | 2019 | Visit | | [address] [facility] | | | | | | [address] | | | | | | [place], [place] | | | | | | [address] | | | | | | [phone] | | | | | | | [...]
--- OUTSIDE RECORDS SUMMARY | ~2020-04-17 | XMS | Encounter Summary ---
Demographics + + + | Address | [address] | | | [place] [address] | + + + | Home Phone [...] [place], [place] | | | | | [address] | | + + + + + | Ellie Vang | ECON | Unknown | | + + + + + Care Team Providers + +------+ + | Care Assembly Line Upholsterer Name | Role | Phone | + +------+ + | Fadi Goodrich DO | PCP | | + +------+ + Encounter Details +--------+ + + + + | Date | Type | Department | Care Team | Description | +--------+ + + + + | 06/09/ | Abstract | Cardiology | Randell Franks, | | | 2015 | | Preventive at [facility] | MD [address] | | | | | [address] | [place], [place] | | | | | [facility] | [address] | | | | | and [place], | [phone] | | | | | [address] | | | | | | [facility] [place] | | | | | | [address] | | | | | | [phone] | | | +--------+ + + + [...] | | 2019 | Visit | | [address] [facility] | | | | | | [address] | | | | | | [place], [place] | | | | | | [address] | | | | | | [phone] | | | | | | | | +--------+---------+ + + + documented as of this encounter Visit Diagnoses Not on filedocumented in this encounter"
--- OUTSIDE RECORDS SUMMARY | ~2020-04-17 | XMS | Encounter Summary ---
Demographics + + + | Address | [address] | | | [place] [address] | + + + | Home Phone [...] [place], [place] | | | | | [address] | | + + + + + | Ellie Vang | ECON | Unknown | | + + + + + Care Team Providers + +------+ + | Care Electric Refrigerator Servicer Name | Role | Phone | [...] [address] | | | | | [facility] | [address] [place], [place] | | | | | [facility], | [address] | | | | | [place] [address] | [phone] | | | | | Floor [place], [place] | | | | | | [address] | | | | | | [phone] | | | +--------+ + + + [...] | | 0 | | | | [id number] | mouth two times | | | [...] | 2020 | Visit | | MD [facility] | | | | | | [address] | | | | | | [place], [place] | | | | | | [address] | | | | | | [phone] | | | | | | | | +--------+---------+ + + + documented as of this encounter Procedures + +--------+ + + + | Procedure Name | Priori | Date/Time | Associated Diagnosis | Comments | | | ty | | | | + +--------+ + + + | X-RAY UGLuba CASTELLON | Routin | 03/22/2019 | History [...]
--- OUTSIDE RECORDS SUMMARY | ~2020-04-17 | XMS | Encounter Summary ---
Demographics + + + | Address | [address] | | | [place] [address] | + + + | Home Phone [...] Providers + +------+ + | Care Hand Fretted Instrument Maker Name | Role | Phone | [...] | | | [address] [place], [place] | [address] | obesity with | | | | [address] | | alveolar | | | | [phone] | | hypoventilation | | | | | | without serious | | | | | | comorbidity with | | | | | | body mass index | | | | | | (BMI) of 40.0 to | | | | | | 44.9 in adult ([facility]); | | | [...] office regularly. She will come back to [facility] on as needed basis. documented [...] lives at home with her mother in [place]. She says that she feels 'good ' [...] nightly., Disp: 30 tablet, Rf l: 11 Fogtwyb-Fkjvegdag-Vldepnl D (CITRACAL CALCIUM+D PO), Take 4 tablets [...] tablets qhs, Disp : , Rfl: rizatriptan ([employer]) 5 mg disintegrating tablet, Take 5 mg by mouth as needed for Migraine. May repeat in 2 hours if needed, Disp: , Rfl: spironolactone (ALDACTONE) 50 mg tablet, Take 50 mg by mouth Daily., Disp: , Rfl: thyroid (OUTPATIENT THERAPIST THYROID) 30 mg tablet, OUTPATIENT THERAPIST Thyroid 30 mg tablet TAKE ONE TABLET [...] unable to assess segmental wa ll motion, Jaroso visually estimates LVEF >70%. RV grossly NML. [...] office regularly. She will come back to [facility] on as needed basis. I [...] through the use of telemedicine. Telemedicine enables [facility] care providers at different locations to [...] | | 2020 | visit | | [address] | | | | | | [place] [address] | | | | | | [phone] | | | | | | | [...]
--- OUTSIDE RECORDS SUMMARY | ~2020-04-17 | XMS | Encounter Summary ---
Demographics + + + | Address | [address] | | | [place] [address] | + + + | Home Phone [...] [place], [place] | | | | | [address] | | + + + + + | Ellie Vang | ECON | Unknown | | + + + + + Care Team Providers + +------+ + | Care Billing Checker Name | Role | Phone | + +------+ + | Kenyatta Cardenas MD | PCP | | + +------+ + Reason for Visit + +--------+ + | Reason | Onset | Comments | | | Date | | + +--------+ + | Follow-up visit | 02/26/ | | | | 2020 | | + +--------+ + Encounter Details +--------+ + + + + | Date | Type | Department | Care Team | Description | +--------+ + + + + | 02/26/ | Telephone | Digestive Health | Clinic, Surgery | Follow-up visit | | 2019 | | Center at [facility] [address] | | | | | | [facility] | | | | | | for Health and | | | | | | [facility] [address] | | | | | | [place], [place] | | | | | | [address] | | | | | | [phone] | | | +--------+ + + + [...] this encounter Miscellaneous Notes Telephone Encounter - Eliane Carr - 02/27/2020 11:31 AM PDT Elzbieta Thank you for choosing [facility] for your bariatric surgery, it is time to come in for a follow-up office visit. As you know, it is important to complete r egular follow-up visits so we can gather information and monitor your outcomes after surgery . The [facility] is accredited by the Metabolic and Bariatric Surgery Accredita tion and Quality Improvement Program. Please don t hesitate to call if you have any questions. Please call the office at [phone] to schedule your follow up visit. Sincerely, [facility] [phone] documented in this encou nter Plan of [...] Rd | | | | | | [place], [place] | | | | | | [address] | | | | | | [phone] | | | | | | | | +--------+---------+ + + + documented as of this encounter Visit Diagnoses Not on filedocumented in this encounter"
--- OUTSIDE RECORDS SUMMARY | ~2020-04-17 | XMS | Encounter Summary ---
Demographics + + + | Address | [address] | | | [place] [address] | [...] Reason for Referral Evaluate & Treat (Routine) + +--------+ + + + + | Status | Reason | Specialty | Diagnoses / | Referred By | Referred To | | | | | Procedures | Contact | Contact | + +--------+ + + + + | Pending | | Sleep | Diagnoses | Adarsh, | [facility] | | Review | | Medicine | History of | Sulema Pope, | [facility] | | | | | stroke | INTERPERSONAL COMMUNICATIONS PROFESSOR [address] | Disorder [address] | | | | | History of | [address] | [address] | | | | | bariatric | DM[place] | [place], | | | | | surgery | [place], [place] | [place] [address] | | | | | Sleep apnea | [address] | Phone: | | | | | with use of | Phone: | [phone] | | | | | continuous | [phone] | Fax: | | | | | positive | Fax: | [phone] | | | | | airway | [phone] | | | | | | pressure | | | | | | | (CPAP) | | | + +--------+ + + + + Reason for Visit + + + | Reason | Comments | + + + | Follow-up | 4 month | + + + Encounter Details +--------+---------+ + + + | Date | Type | Department | Care Team | Description | +--------+---------+ + + + | 03/29/ | Office | [facility] | Sulema Altamirano | Chronic diastolic | | 2020 | Visit | CARDIOLOGY [place] | HILDA Pope [address] | heart failure (HCC) | | | | [address] | [address] | (Primary Dx); | | | | [address] | [place] [address] | History of sinus | | | | [place], [place] | [phone] | tachycardia; History | | | | [address] | | of stroke; HTN, | | | | [phone] | | goal below 130/80; | | [...] | (HCC) | +--------+---------+ + + + Social [...] Instructions Patient Instructions Sulema Altamirano FNP - 03/29/2020 1:00 PM PDTI made no changes t o medications See me back in 6 month I referred to sleep Clinic in [place] For follow up on sleep apnea and insomnia ,as y our BIPAP setting and sleep apnea need reevaluated with your almost 300 lb weight loss Elect ronically signed by HILDA Santos at 03/29/2020 1:48 PM PDT documented in this encounter Progress Notes Sulema Altamirano FNP - 03/29/2020 1:00 PM PDTFormatting of this note might be differe nt from the original. Date of visit: 03/29/2020 Primary Care Physician: Jorje Hill CHIEF COMPLAINT: Chief Complaint Patient presents with Follow-up 4 month HISTORY OF PRESENT ILLNESS: Ms. Elzbieta Cristina is a 45 -year-old woman who is here today for 4-month follow-up To asse ss her need for diuretic with diastolic heart failure with large weight loss. Today, I reviewed all previous documentation available to me in electronic medical pilar rd and from external sources. 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 Fu, Her current and previous testing and procedures are detailed below. I performed a virtual visit with her on October 27, 2019 need no changes to her medications bu t she was having ongoing issues with elevated parathyroid ,and she had 3 surgeries in and August for her ventral hernia repair followed by 2 emergent surgeries for complicati ons and getting dressing changes to open abdominal wound. Since I saw her last, she had 2 emergency room visits. The first October 25 With ER notes do cumenting congestion ,rhinorrhea ,cough and sore throat and pleuritic chest pain and diarrh ea and vomiting.She had syncopal episode after feeling lightheaded. It was thought to be vi ral illness and orthostatic syncope related to some dehydration. Her EKG, labs, and CXR w as reported as unremarkable,. She was seen again on February 26 in the emergency room for shortness of Breath, And ER no maxine document possible Covid exposure through her daughter, though she had a recent negat scarlett COVID test 2 weeks previously. She also had concerns that had a possible clot in her jimena ng. Her CXR was negative for pneumonia, her lab work was unremarkable except for elevated alk phos of 136 which is only mildly elevated, and INR 1.5, with a normal white blood cell count as detailed below. Her d-dimer was negative and she was encouraged to use her albuter ol inhaler and stay on self-isolation until her daughter's test result came back vital signs were stable, EKG's for both visits reviewed by me and normal sinus rhythm without ischemic changes. She reports her symptoms of SOB resolved, and has been stable from a cardiac point of view , and denies any chest pain ,palpitations, LE Edema , dizziness, syncope, or signs or symp toms of stroke or TIA. She reports coumadin continues to be followed by [facility] and reports INR therapeutic and denies any bleeding. She continues to be troubled by some nausea but her previous frequent symptoms of nausea an d vomiting have much improved . She is getting kidney stones removed by lithotripsy 04/[address] New , and needs to rodrigues ve further surgery to repair weakened abdominal wall from her previous ventral hernia surg eileen, as well as 2 emergency surgeries that followed . Her abdominal surgery will be performed by Dr. Woo at [facility]. She was never able to follow up on my referral to Dr. Rascon due to all of her ongoing med ical concerns, but reports her PCP , Dr. Hill would also like her to have her sleep apnea reevaluated with her weight loss and insomnia . She continues to follow up with integrity director at [facility], Dr. Franks, who previously repor emely that her diabetes was now resolved as her A1c was 5.2 in August , and her only problem was her parathyroid, and he doubled her calcium dose, though otherwise she was felt to be d oing well. Her weight today is 279 pounds, and she has lost 115 pounds since September 2017 when she weigh ed 394 pounds. She is still planning on getting a place of her own, as she is intolerant of her mother sec ondhand smoke, and plans to move in March. She again verified she is not , and now on Mirena IUD, and has same sex partner , s o no concerns with her beta lee. She brought her medications to the clinic today, and read by me, and her atenolol has been increased to 100 mg nightly RTC with Dr. Hill, for migraines. REVIEW OF SYSTEMS: Negative except for pertinent items noted in HPI. Constitutional: Reports mild ongoing fatigue slowly improving, denies unexplained weight lo ss.Naps in the day Appetite is good. weight down 115 pounds since September 2017 when weighed 394 [...] scarlett sputum production. Denies orthopnea, PND. Cardiovascular: lower extremity edema and lymphadenopathy controlled with daily diuretics, palpitations now rare with increased dose of [...] last 08/2019, open wound requiring twice daily Wound packing for several weeks . Denies blood in stool. Genitourinary: Denies Hematuria., [...] weight loss. Hypothyroidism,followed by Dr. Kat alva, integrity director at [facility]) . Denies excessive thirst or hunger. [...] knee pain and hernia pain Lives in [facility] her mother who smokes. . Sister is morning caregiver. Grandchildren ages 4 and 7 live with he r daughter and son-in-law. Disabled , on disability .01/24/2019: working with [employer] to get her own place. Outpatient Medications Prior to Visit Medication Sig Dispense Refill ALPRAZolam (XANAX) 0.5 mg tablet Take 1 mg by mouth 3 times daily as needed Twice a day . ascorbic acid (VITAMIN C) 500 MG tablet Take 1,000 mg by mouth Daily. atenolol (TENORMIN) 50 mg tablet Take 1 tablet by mouth nightly. (Patient taking differ ently: Take 100 mg by mouth nightly Take 100 mg daily.) 30 tablet 11 Wfvpzyl-Lxwqmkksp-Ogecjzw D (CITRACAL CALCIUM+D PO) Take 4 tablets [...] mg tablet Take 324 mg by mouth. gabapentin (NEURONTIN) 100 mg capsule Increase as instructed to 3 caps three times a da y. (Patient taking differently: 300 mg Increase as instructed to 3 caps three times a day.) 90 capsule 3 lurasidone (LATUDA) 20 mg tablet Take 40 mg by mouth Daily. magnesium oxide (MAG-OX) 400 mg tablet Take 400 mg by mouth 2 times daily. metoclopramide (REGLAN) 10 mg tablet Take 10 [...] morning. potassium chloride 20 mEq CR tablet Take 40 mEq by mouth 2 times daily . pramipexole (MIRAPEX) 0.125 MG tablet pramipexole 0.125 mg tablet-2 tablets qhs prazosin (MINIPRESS) 2 MG capsule Take 4 mg by mouth nightly . rizatriptan (MAXALT-STAFF THERAPIST) 5 mg disintegrating tablet Take 5 mg by mouth as needed for Mi graine. May repeat in 2 hours if needed spironolactone (ALDACTONE) 50 mg tablet Take 50 mg by mouth Daily. thyroid (CONSERVATION AGENT THYROID) 30 mg tablet CONSERVATION AGENT Thyroid 30 mg tablet TAKE ONE TABLET BY MOUTH ONCE DAILY topiramate (TOPAMAX) 100 mg tablet Take 100 mg by mouth 2 times daily . topiramate (TOPAMAX) 50 MG tablet 100 mg 3 times daily. torsemide (DEMADEX) 100 mg tablet Take 100 mg by mouth 2 times daily. warfarin (COUMADIN) 5 mg tablet Take 5 mg by mouth Daily. No facility-administered medications prior to visit. PHYSICAL EXAM: Wt Readings from Last 3 Encounters: 03/29/20 126.7 kg (279 lb 4.8 oz) 10/27/19 121.1 kg (267 lb) 06/22/19 124 kg (273 lb 5.9 oz) Temp Readings from Last 3 Encounters: 06/22/19 36.7 C (98 F) (Axillary) 02/15/19 36.7 C (98 F) (Temporal) 04/21/16 36.4 C (97.6 F) BP Readings from Last 3 Encounters: 03/29/20 118/80 10/27/19 121/80 06/22/19 138/65 Pulse Readings from Last 3 Encounters: 03/29/20 85 10/27/19 79 06/22/19 78 Vital signs: 01/24/2019: WT 274 LB. BP: 108/70 HR: 80 Vital signs: 12/15/2018. WT 284 LB. BP 106/78 HR 75 Vital signs: 07/29/2018. WT 310 LB. BP 122/72 HR 86 GENERAL: obese Woman , in no distress. Appears approximately stated age. HEENT: Normocephalic, atraumatic. EYES: PERRL, EOM normal. MOUTH: Mask in place throughout visit, due to COVID-19. Oral exam not performed NECK: No JVD, lymphadenopathy, thyromegaly, bruits. Carotid [...] PT pulses are 2+ bilaterally. No clubbing. Ambulating bob r. Varicose veins to lower legs SKIN: Warm and dry, capillary refill is normal, no lesions. Tattoos , right hand, Large a lucas of loose skin to abd/legs. NEUROLOGIC: Awake, alert and oriented x 3. No focal motor or sensory deficits. PSYCHIATRIC: Appropriate, affect appears normal DATA: Blood tests: Lab Results Component Value Date WBC 11.1 (A) 12/07/2018 RBC 4.59 01/04/2020 HGB 13.3 01/04/2020 HGB 14.6 12/07/2018 PLT 298 12/17/2018 Lab Results Component Value Date NA 138 01/04/2020 NA 138 01/04/2020 K 3.4 (A) 01/04/2020 K 3.4 (A) 01/04/2020 CL 100 01/04/2020 CL 100 01/04/2020 CO2 26 01/04/2020 CO2 26 01/04/2020 ANIONGAP 15 01/04/2020 ANIONGAP 15 01/04/2020 GLUF 84 12/07/2018 BUN 15 01/04/2020 BUN 15 01/04/2020 BUN 16 12/17/2018 EGFR 73.0 01/04/2020 EGFR 73.0 01/04/2020 Lab Results Component Value Date GLUF 84 12/07/2018 No results found for: BNP, TSH, CRP No results found for: TOTEPI CARDIAC PROCEDURES/IMAGING ECHO: Last Echo: 02/22/2019: ([facility]). Sinus rhythm. Technically adequate study. EF 65-70%. LV no rmal in size and wall thickness, no regional wall motion abnormalities. Normal diastolic fu nction. RV normal in size and function. Normal size atria. Aortic valve trileaflet, mildl y calcified, no AI or stenosis. Normal mitral valve, tricuspid valve normal, pulmonary pres sures not assessed due to absence of TR jet. Pulmonic valve not well visualized. No perica rdial pleural effusion. IVC WNL, CVP 5-10. Ascending aorta not well seen Echo: 02/16/2017: ([facility]): normal EF of 60-65% , accurate assessment of diastolic function i mpeded by poor tissue doppler, RV normal in size and function, with no significant valvular disease, and aortic root, ascending aorta , and aortic arch normal Echo: 01/02/2016 ([facility]): TDS, cardiac chamber dimensions grossly NML, LVEF >70%, rodriguez tolic function normal for patient. Unable to assess segmental wall motion. RV grossly norm al. Aortic valve sclerotic, no As/AI. Mitral and tricuspid valves grossly normal. Trace T R. No pericardial effusion VASCULAR TESTING AND PROCEDURES Left lower extremity DVT, presumed PE: 10/2015 [facility]. treated with heparin drip and Coumadin 10 in hospital, with Coumadin 6 months as outpatient, ASA 81 mg continued Venous US: right leg, 04/28/2016: No evidence of DVT. EKG EKG 10/27: ([facility]) Normal sinus rhythm. Normal EKG. Rate 93 bpm, LA 172 ms, QRS 90 ms, QTC 465 ms personally reviewed by me in the office today) EK02/05: Sinus tachycardia, otherwise normal. Rate 160 bpm, LA 174 ms, QRS 74 ms, QTC 451 ms (personally reviewed by me in the office today and no significant change seen fro m EKG done in October 2016 except for faster heart rate) EK04/26/2018: Normal sinus rhythm, rate 74 bpm, LA 182 ms, QRS 96 ms, QTC 472 ms, tracin g personally reviewed by me, and compared to previous EKG, heart rate is now better controll ed, otherwise similar morphology EK04/28/2019: Normal sinus rhythm, right axis. Rate 74 bpm, LA 170 ms, QRS 88 ms, QTC 45 0 ms . Tracing personally reviewed by me, and similar morphology to previous EKG except for better tracing, and heart rate remains well controlled EK02/27/2020: ([facility]): Normal sinus rhythm, nonspecific T wave abnormalities. Rate 86 bp m, LA 192 ms, QRS 94 ms, QTC 497 ms, tracing personally reviewed by me EK03/29/2020:( atenolol 100 mg) Normal sinus rhythm, baseline waiver to EKG tracing, othe rwise no significant change since EKG performed in April 2019. Rate 73 bpm, LA 168 ms, QR S 76 ms, QTC 449 ms, tracing personally reviewed by me LABS; Lipids: 11/20/2017:Lipids: ( no statin) Total cholesterol 143, VLDL 37, LDL 60, HDL 38, t otal triglycerides 184, non-HDL cholesterol 105 Labs: 02/22/2018: [...] 4.51, hemoglobin 13.1, hematocrit 41.3, platelets 341. labs 02/27/2020:([facility]) CMP: Sodium 136, potassium 4.1, chloride 105, glucose 177, BUN 13, creatinine 0.95, GFR 65, AST 28, ALT 12, alk phos 136, total bili 0.4, albumin 3.7. Magnes ium: 2. D-dimer <100. Troponin T <0.010. CBC: WBC 8.2, RBC 4.6, hemoglobin 13.2, hematocr it 40.5, platelets 283. INR 1.5 ASSESSMENT & PLAN: She is here today for four-month follow-up on her diastolic heart failure, intolerance of diuretics. She has problems as detailed below. Her EKG performed in the clinic today is detailed above and shows normal sinus rhythm at 73 bpm, and heart rate and blood pressure remained well controlled with no bradycardia or di zziness since atenolol was increased to 100 mg nightly. As discussed in HPI, she continues to have problems since her ventral hernia surgeries, but her nausea and vomiting are much less, and she does not appear to be dehydrated as her labs performed and February 26 in the emergency room demonstrate , and her current large dose of to rsemide continues to look for her. She will need further surgery in her future to her abdominal wall as it is now weakened f rom her multiple surgeries. She continues to be stable from a cardiovascular standpoint. Due to all of her medical complications, she was never able to follow-up on my referral to Dr. Rascon for further evaluation of her sleep apnea, as she needs to be retested for sleep a pnea given her large weight loss. Unfortunately the sleep clinic at [facility] is no longer accepting new patients due to their large backlog, which I discussed with her today, and she is agreeable to being referre d to the sleep clinic at [place]. She also continues to suffer from some insomnia. I made no changes to her cardiac medications today, and she should continue on atenol ol 100 mg nightly for heart rate control and palpitations, daily Coumadin with target INR 2 -3 with previous history of deep vein thrombosis and PE and stroke, potassium 40 mEq bid, ma gnesium 400 mg BID, spironolactone 50 mg daily and torsemide 100 mg bid for diastolic heart failure and severe lower extremity edema. She was also started on prazosin 4 mg nightly by her psychiatrist to help her insomnia, and I cautioned her today that it also affects her blood pressure and to be aware of any dizzin ess or lightheadedness or hypotension. I will see her back in 6 Months to follow up on her diastolic heart failure. 1. Chronic diastolic heart failure (HCC) 2. History of sinus tachycardia 3. History of stroke 4. HTN, goal below 130/80 5. Mixed hyperlipidemia 6. Hypokalemia 7. History of bariatric surgery 8. Sleep apnea with use of continuous positive airway pressure (CPAP) 9. History of type 2 diabetes mellitus 10. Personal history of DVT (deep vein thrombosis) 11. History of pulmonary embolism 12. Hyperparathyroidism (HCC) Orders Placed This Encounter Procedures AMB REFERRAL TO [facility] ECG 12 lead The following portions of the patient's history were personally reviewed by me and updated as appropriate: EKG tracings, other specialty provider and PCP notes,any Hospital admission and discharge summaries, any ER records , current and previous cardiac testing and procedure reports and d nickie, , medication Bottles reviewed personally by me. Allergies, current medications.labs Family history, past medical history, past social history, past surgical history. Problem list. This encounter was dictated with voice recognition software and may contain inadvertent rec ognition errors. Portions of this chart may have been copied from previous notes for continuity of care purp ose Maryse MARKS [facility] 03/29/2020 Dot han in this encounter Plan of Treatment [...] [address] | | | | | | [place] [address] | | | | | | [phone] | | | | | | | | +--------+ + + + + + + +--------+ + + | Name | Type | Priori | Associated Diagnoses | Order Schedule | | | | ty | | | + + +--------+ + + | AMB REFERRAL TO [facility] | Outpatient | Routin | History of stroke | Ordered: 03/29/2020 | | [facility] | Referral | e | History of | | | | | | bariatric surgery | | | | | | Sleep apnea with use | | | | | | of continuous | | | | | | positive airway | | | | | | pressure (CPAP) | | + + +--------+ + + [...] in this encounter Results ECG 12 lead (03/29/2020 1:16 PM [...] of | | | | | | 28-APR-2019 | | | | | | 13:27,similar | | | | | | morphologyConfirmed by | | | | | | SULEMA DORAN | | | | | | ([id number]) on 03/29/2020 | | | | | [...] airway pressure (CPAP) | + + | History of type [...]
--- OUTSIDE RECORDS SUMMARY | ~2020-04-17 | XMS | Encounter Summary ---
Demographics + + + | Address | [address] | | | [place] [address] | + + + | Home Phone [...] [place], [place] | | | | | [address] | | + + + + + | Ellie Vang | ECON | Unknown | | + + + + + Care Team Providers + +------+ + | Care Science Interpreter Name | Role | Phone | [...] | | | | | | [address] [place], [place] | | | | | | [address] | | | | | | [phone] | | | +--------+ + + + [...] | | 2019 | Visit | | [address] | | | | | | [address] | | | | | | [place], [place] | | | | | | [address] | | | | | | [phone] | | | | | | | | +--------+---------+ + + + documented as of this encounter Visit Diagnoses Not on filedocumented in this encounter"
--- OUTSIDE RECORDS SUMMARY | ~2020-04-17 | XMS | Encounter Summary ---
Demographics + + + | Address | [address] | | | [place] [address] | + + + | Home Phone [...] [place], [place] | | | | | [address] | | + + + + + | Ellie Vang | ECON | Unknown | | + + + + + Care Team Providers + +------+ + | Care Rail Gang Supervisor Name | Role | Phone | [...] | | 2018 | | Preventive at [facility] | MD [address] | (PHENTERMINE 37.5 mg | | | | [address] | [facility] [place] | oral tablet); | | | | [place] for [facility] | [address] | Refill Request | | | | and Healing, | [phone] | | | | | [address] | | | | | | [place], [place] | | | | | | [address] | | | | | | [phone] | | | +--------+--------+ + + + [...] Seen By Ordering Provider: Last Appointment in [facility] was on at 3:36 pm with Randell Franks MD. Follow Up Plan: Next Appointment in [facility] is on 06/30/19 at 11:15 am with Beronica Franks MD. Please review and sign if appropriate elephone Encounter - Re Evy colindres - 02/15/2019 11:34 AM PDTREFILL REQUEST Person calling: Pt Medication(s) Needed: PHENTERMINE 37.5 mg oral tablet Pharmacy (Name & Location) Preference: [facility]. [place] How many days worth of medication [...] Rd | | | | | | [place], [place] | | | | | | [address] | | | | | | [phone] | | | | | | | | +--------+---------+ + + + documented as of this encounter Visit Diagnoses Not on filedocumented in this encounter"
--- OUTSIDE RECORDS SUMMARY | ~2020-04-17 | XMS | Encounter Summary ---
Demographics + + + | Address | [address] | | | [place] [address] | + + + | Home Phone [...] [place], [place] | | | | | [address] | | + + + + + | Ellie Vang | ECON | Unknown | | + + + + + Care Team Providers + +------+ + | Care Store Keeper Name | Role | Phone | [...] 2014 | | Center at [facility] [address] | [facility] [address] | Review (Pre-surgery | | | | [address] [facility] | [address] [place], [place] | meal plan. To be | | | | for Health and | [address] | provided to home | | | | [facility], [address] | [phone] | health nurse. ) | | | | [place], [place] | | | | | | [address] | | | | | | [phone] | | | +--------+ + + + [...] [place] | | | | | | [address] | | | | | | [phone] | | | | | | | | +--------+---------+ + + + documented as of this encounter Visit Diagnoses Not on filedocumented in this encounter"
--- OUTSIDE RECORDS SUMMARY | ~2020-04-17 | XMS | Encounter Summary ---
Demographics + + + | Address | [address] | | | [place] [address] | + + + | Home Phone [...] + + | Author | [facility] | | | and [place] | + + + | Organization | [facility] | | | [...] Team Providers + +------+ + | Care Contracting Support Specialist Name | Role | Phone | + +------+ + | Jorje Hill | PCP | | + +------+ + Reason for Visit +--------+--------+ + | Reason | Onset | Comments | | | Date | | +--------+--------+ + | Other | 03/30/ | | | | 2020 | | +--------+--------+ + Encounter Details +--------+ + + + + | Date | Type | Department | Care Team | Description | +--------+ + + + + | 03/30/ | Telephone | [facility] | Camille De La Paz, | Other | | 2020 | | NEUROLOGY [address] | | | | | [address] | [address] [facility] [address] | | | | | [place], [place] | [place] [address] | | | | | [address] | [phone] | | | | | [phone] | | | +--------+ + + + [...] this encounter Miscellaneous Notes Telephone Encounter - Karthik Sánchezseven Yu - 03/30/2020 10:20 AM Stephani, is calling tabitha Lobo and would like a call back. Additional Call Details: Vaibhav, from [employer], is needing a call back in regards to Referral Authorization with Reference Number: [id number] and can be reached at [phone] If this is a symptom based call, was patient offered triage? Not Applicable If this is a symptom based call and you were unable to immediately transfer the call to a romeo ellis souvenir street vendor was caller made aware that if at [...] | Camille De La Paz, | | 2019 | visit | | MD Saumya MOE | | | | | | [address] | | | | | | [place] [address] | | | | | | [phone] | | | | | | | | +--------+ + + + + documented as of this encounter Visit Diagnoses Not on filedocumented in this encounter"
--- OUTSIDE RECORDS SUMMARY | ~2020-04-17 | XMS | Encounter Summary ---
Demographics + + + | Address | [address] | | | [place] [address] | + + + | Home Phone [...] [place], [place] | | | | | [address] | | + + + + + | Ellie Vang | ECON | Unknown | | + + + + + Care Team Providers + +------+ + | Care Revenue Cycle Manager Name | Role | Phone | + +------+ + | Jorje Hill MD | PCP | | + +------+ + Encounter Details +--------+ + + + + | Date | Type | Department | Care Team | Description | +--------+ + + + + | 05/28/ | Documentati | [facility] | Lab, Gi Procedure | | | 2018 | on | [address] | | | | | [address] [facility] | | | | | | [facility] and Healing, | | | | | | [address] | | | | | | [place], [place] | | | | | | [address] | | | | | | [phone] | | | +--------+ + + + [...] this encounter Miscellaneous Notes Telephone Encounter - Venecia Edwards MD - 05/28/2018 4:18 PM PDT AFTER MEDICAL REVIEW Is this a complex procedure? No To be Scheduled: [] Consultation [] Colonoscopy [] Colonoscopy (IBD screening); 60 minute [] Chromoendoscopy; 90 minute [] Flexible Sigmoidoscopy [] EGD (Upper Endoscopy); 20 minute [] w/EMR []w/RFA [x] EGD (Upper Endoscopy); 40 minute [] w/EMR []w/RFA []w/Dysphagia [] Ileoscopy [] Pouchoscopy [] Sm Bowel Enteroscopy [] Upper Double Balloon Enteroscopy [] Lower Double Balloon Enteroscopy [] Upper EUS 60min [] w/EMR []w/RFA [] Upper EUS 90min [] w/EMR []w/RFA [] Lower EUS [] ERCP [] 24HR ph Monitor []On PPI (will be done OFF PPI unless checked) [] 48HR ph Monitor []On PPI (will be done OFF PPI unless checked) [] Esophageal Manometry [] Anorectal Manometry [] Smartpill [] Other: When to be scheduled: To be scheduled with: Within 1month Any Provider Resources: none [] GI Provider Only [] Not with JA, LT, DH, DL, SH Location: [facility] Type of Sedation: Anesthesia; Reason: Increased tolerance of pain meds, Complicated procedure and Cardiac. Ty pe of [facility] appointment: in person Preparation: None Patient Denied - (Reason): [] Get Images Pushed to IMPAX Other Comments: elephone Encoun ter - Sheree Basilio MA - 05/28/2018 9:07 AM PDTDirect review due to BMI. elephone Encounter - Papo Isabeln - 05/28/2018 8:14 AM PDT Elzbieta Cristina [id number] REFERRAL FOR REVIEW: Reviewing Provider: Sheree Basilio CMA [x]Internal Referral [] External Referral [] CORI Report Available Referring Diagnosis/Comments: Z98.84 (ICD-10-CM) - V45.86 (ICD-9-CM) - History of Nilesh-en-Y gastric bypass Z86.711 (ICD-10-CM) - V12.55 (ICD-9-CM) - History of pulmonary embolism E66.01, Z68.45 (ICD-10-CM) - 278.01, V85.45 (ICD-9-CM) - Morbid obesity with BMI of 70 and over, adult (HCC) "RYGB 03/01/18, vomiting x since the 3rd week post op Is patient on an anticoagulant? NO. Is patient on an anti-platelet agent? Yes. Aspirin-Hx CVA, PE, DVT Attending Provider (if order being placed by Resident or Fellow): Wt Readings from Last 1 Encounters: 05/27/18 : 144.7 kg (319 lb)" [] emergent []urgent [x]routine []Consultation []Colonoscopy []Flexible Sigmoidoscopy [x]EGD (Upper Endoscopy) [] Sm Bowel Enteroscopy [] Double Balloon Enteroscopy []Capsule Endoscopy: []Small Bowel []ESO []EUS []ERCP []24HR ph Monitor [] ON PPI (will be done OFF PPI unless checked) []48HR ph Mon itor [] ON PPI (will be done OFF PPI unless checked) []Esophageal Manometry []Anorectal Manometry []Other: Electronic Data: Last 1 Encounter BMI Readings: Date BMI 05/27/2018 64.55 kg/m2 Patient Active Problem List Diagnosis Hernia [...] gastric bypass Impaired intestinal absorption Current Outpatient Prescriptions Medication Sig ascorbic acid (VITAMIN C) 500 mg Oral tablet Take 500 mg by mouth once daily. aspirin EC 81 mg oral tablet,delayed release (DR/EC) Take 81 mg by mouth once daily. atenolol 25 mg oral tablet Take 25 mg by mouth two times daily. buprenorphine HCl 2 mg sublingual tablet, sublingual Place under tongue once daily. CALCIUM CRB&NDV-A7-SMJ29-GENIS ORAL Take 2 tablets by mouth two times daily. cyanocobalamin (vitamin B-12) 5,000 mcg oral tablet, IR and ER, biphasic Take by mouth. docusate sodium (STOOL SOFTENER ORAL) Take 200 mg by mouth. ergocalciferol (VITAMIN D2) 50,000 unit oral capsule Take 50,000 Units by mouth twice w eekly (on Thursday and ). FA/mv,Ca,iron,min/lycopene/lut (MULTIVITAL ORAL) Take by mouth. Ferrous [...] mg by mouth once daily at bedtime. ondansetron ODT 4 mg oral tablet,disintegrating Dissolve 1 tablet on tongue and swallow every six hours as needed for nausea/vomiting. phentermine 37.5 mg oral tablet Take 37.5 mg by mouth once daily in the morning. Admini ster before breakfast. piroxicam 10 mg oral capsule Take 10 mg by mouth once daily. potassium chloride SR 20 mEq oral tablet,ER particles/crystals Take 2 tablets by mouth two times daily. (Patient taking differently: Take 60 mEq by mouth four times daily. ) promethazine 25 mg oral tablet Take 0.5 [...] Prevention torsemide 100 mg oral tablet Take 0.5 tablets by mouth two times daily. Resume half dos e for first week post opertative traZODone 150 mg Oral tablet Take 150 mg by mouth once daily at bedtime. TRESIBA FLEXTOUCH U-100 100 unit/mL (3 mL) subcutaneous insulin pen Inject 28 Units und er the skin (SUBC) once daily with dinner. No current facility-administered medications for this visit. [...] Brian Incisional hernia repair 03/01/2015 [facility]/ Dr. Cantu. Primary fascial closure and scar excision Lap gastric byp, and nilesh-en-y gastroenterostomy w/ nilesh limb 150 cm or less [facility] Results Component Value Date WBC 12.50 05/27/2018 HB 16.3 05/27/2018 HCT 50.4 05/27/2018 PLT 318 05/27/2018 MCV 83.3 05/27/2018 RDW 43.5 05/27/2018 INRPT 1.10 01/01/2017 FERRITIN 49 05/27/2018 B12 2,448 05/27/2018 IRON 72 05/27/2018 NA 140 05/27/2018 K 3.0 05/27/2018 CL 102 05/27/2018 BICARB 27 05/27/2018 BUN 11 05/27/2018 CR 0.85 05/27/2018 GLU 123 05/27/2018 CA 9.7 05/27/2018 AST 34 05/27/2018 ALT 36 05/27/2018 AP 128 05/27/2018 TBILI 0.6 05/27/2018 TP 8.5 05/27/2018 ALB 3.2 05/27/2018 documented in this encoun ter Plan of [...] Rd | | | | | | [place], [place] | | | | | | [address] | | | | | | [phone] | | | | | | | | +--------+---------+ + + + documented as of this encounter Visit Diagnoses Not on filedocumented in this encounter
--- OUTSIDE RECORDS SUMMARY | ~2020-04-17 | XMS | Encounter Summary ---
Demographics + + + | Address | [address] | | | [place] [address] | + + + | Home Phone | | + + + | Preferred Language | Unknown | + + + | Marital Status | | + + + | Temple Affiliation | Unknown | + + + [...] Team Providers + +------+ + | Care Cdl Team Truck Driver Name | Role | Phone [...] + | 01/04/ | Documentati | [facility] | Bassam, | Results (01/04/20) | | 2020 | on | NEPHROLOGY [place] | [facility]er[facility] | | | | | [address] | Mine Laborer | | | | | [address] [place] | | | | | | [address] | | | | | | [phone] | | | +--------+ + + + [...] D | | | | | | [place] [address] | | | | | | [phone] | | | | | | | [...]
--- OUTSIDE RECORDS SUMMARY | ~2020-04-17 | XMS | Encounter Summary ---
Demographics + + + | Address | [address] | | | [place] [address] | + + + | Home Phone [...] [place], [place] | | | | | [address] | | + + + + + | Ellie Vang | ECON | Unknown | | + + + + + Care Team Providers + +------+ + | Care Hotbed Operator Name | Role | Phone | [...] | | [address] | [place], [place] | | | | | [facility] | [address] | | | | | and [place], | [phone] | | | | | [place] [address] | | | | | | [facility] [place] | | | | | | [address] | | | | | | [phone] | | | +--------+ + + + [...] to send MyChart Response? pls call pt [phone] documented in this enc ounter Plan of [...] Rd | | | | | | [place], [place] | | | | | | [address] | | | | | | [phone] | | | | | | | | +--------+---------+ + + + documented as of this encounter Visit Diagnoses Not on filedocumented in this encounter"
--- OUTSIDE RECORDS SUMMARY | ~2020-04-17 | XMS | Encounter Summary ---
Demographics + + + | Address | [address] | | | [place] [address] | + + + | Home Phone [...] [place], [place] | | | | | [address] | | + + + + + | Ellie Vang | ECON | Unknown | | + + + + + Care Team Providers + +------+ + | Care Saw Boss Name | Role | Phone | [...] | [address] | Ave [facility] [place] | | | | | for Health and | [address] | | | | | Healing, [facility] | [phone] | | | | | [place], [place] | | | | | | [address] | | | | | | [phone] | | | +--------+ + + + [...] | 2019 | Visit | | [address] [facility] | | | | | | [address] | | | | | | [place], [place] | | | | | | [address] | | | | | | [phone] | | | | | | | | +--------+---------+ + + + documented as of this encounter Visit Diagnoses Not on filedocumented in this encounter"
--- OUTSIDE RECORDS SUMMARY | ~2020-04-17 | XMS | Encounter Summary ---
Demographics + + + | Address | [address] | | | [place] [address] | + + + | Home Phone [...] Providers + +------+ + | Care Nursing Manager Name | Role | Phone | + +------+ + PCP | Unavailable | + +------+ + Encounter Details +--------+ + + + + | Date | Type | Department | Care Team | Description | +--------+ + + + + | 12/07/ | Orders Only | [facility] | Conversion | | | 2018 | | NEPHROLOGY [place] | Transaction, | | | | | [address] | Provider Unknown | | | | | [address] [place], [place] | | | | | | [address] | (Fax) | | | | | [phone] | | | +--------+ + + + [...] | | | | | [place] [address] | | | | | | [phone] | | | | | | | [...] | | | LAB | | | Pakistani | | | | | + +-------+ [...]
--- OUTSIDE RECORDS SUMMARY | ~2020-04-17 | XMS | Encounter Summary ---
Demographics + + + | Address | [address] | | | [place] [address] | + + + | Home Phone [...] [place], [place] | | | | | [address] | | + + + + + | Ellie Vang | ECON | Unknown | | + + + + + Care Team Providers + +------+ + | Care Culinary Chef Name | Role | Phone | [...] | | | | | | | [facility] | | | | | | | [facility] and | | | | | | | Healing, | | | | | | | [address] | | | | | | | [place], [place] | | | | | | | [address] | | | | | | | Phone: | | | | | | | [phone] | | | | | | | Fax: | | | | | | | [phone] | +--------+--------+ + + + + Encounter Details +--------+---------+ + + + | Date | Type | Department | Care Team | Description | +--------+---------+ + + + | 06/16/ | Office | Digestive Health | Shereen Georges, | Morbid obesity with | | 2012 | Visit | Center at [facility] [address] | ACNP [address] | BMI of 70 and over, | | | | [address] | Ave [place], [place] | adult (HCC) (Primary | | | | for Health and | [address] | Dx); Vitamin D | | | | Healing, [address] | | deficiency disease; | | | | [place], [place] | | Intertriginous | | | | [address] | | candidiasis; | | | | [...] If your referral is at [facility], pain management will call y ou in the next week to schedule. Will [...] If your referral is at [facility], they will call y ou in the next week to schedule. She will arrange 8. Nephrology Consult: Please call [facility] ([phone]) and have them send you a urine specimen container. You will need to discuss your kidney stone risk with a nephrology provid er prior to proceeding with gastric bypass. If your referral is at [facility], they will call you in the next [...] at the same time: betsy Feldman RN, LAPELER- Nurse Practitioner for Bariatric Surgery [facility] | [address] | [place], [place] | [address] | Potential Contraindications to Bariatric Surgery Age [...] does not guarantee that the [facility] Bariatric Surger y program will deem you a surgical candidate. documented in this encounter Progress Notes Shereen Pinto ACNP - 06/16/2013 1:28 PM PSTFormatting of this note might be different fro m the original. BARIATRIC INITIAL VISIT Provider: Shereen Pinto DNP, DANIELLEP, LAPELER Referring Provider: Dr. Fadi Goodrich, [place] [phone] Reason for Requested Consultation: Initial evaluation for bariatric surgery. Elzbieta Farooq is interested in Frandy en y alfredo tomeka bypass. The pt is here With her sister. Following surgery her mother and sister will care for her, she will Stay in [place] after surgery so that she is close by. She lives in [place]. They have few stairs to get into [...] recently gained weight, she met with our handle turner today, she has been making poor food [...] none Use of Redux or Phen/fen: no Latter-Day or cultural reason you would refuse blood [...] as well , hypertension, hyperlipidemia. Denies CHF, NM, ischemic heart disease, DVT/PE, or pulmonary hypertension. [...] the therapy. 8. Nephrology Consult: Please call [facility] ([phone]) and have them send you a urine specimen container. You will need to discuss your kidney stone risk with a nephrology provid er prior to proceeding with gastric bypass. If your referral is at [facility], they will call you in the next week to schedule. You are at increased risk of renal stones after surgery, with your history of stone, we want to check of oxalate in your urine. You will need a referral to a financial foundations associate If your level is elevated. 9. See [...] soon as possible Shereen Pinto DNP ACNP, LAPELER Nurse Practitioner for Bariatric Surgery [facility] | [address] | [place], [place] | [address] | Potential Contraindications to Bariatric Surgery Age [...] does not guarantee that the [facility] Bariatric Surger y program will [...] v isit. documented in this en counter Miscellaneous Notes Scan - Yamil, Faculty - 06/22/2013 9:49 AM PSTElectronically signed by Simran Other at 9:49 AM PSTdocumented in this encounter Plan of [...] Rd | | | | | | [place], [place] | | | | | | [address] | | | | | | [phone] | | | | | | | [...] | | | | | | by [employer] [facility],[address] | | | | | | [facility], [facility],[place] | | | | | | [address] | | | | | | [phone]. | | | | | | com, [...] at | | | | | | [employer] | | | | | | developed and | | | | | | characteristics | | | | | | determined by | | | | | | [employer]. See | | | | | | Compliance Statement B: | | | | | | Cued/CS | | | | + + + + + + + + | Specimen | + + | Blood - Blood | + + + + + + + | Performing | Address | City/State/Zipcode | Phone Number | | Organization | | | | + + + + + | [facility] | [address] | [place], [place] | | | [facility] | | [address] | | + + [...]
--- OUTSIDE RECORDS SUMMARY | ~2020-04-17 | XMS | Encounter Summary ---
Demographics + + + | Address | [address] | | | [place] [address] | + + + | Home Phone [...] + | Katalina Padilla | ECON | [address] | | | | | [place], [place] | | | | | [address] | | + + + + + | Ellie Vang | ECON | Unknown | | + + + + + Care Team Providers + +------+ + | Care Plastic Battery Assembler Name | Role | Phone | + +------+ + | Fadi Goodrich DO | PCP | | + +------+ + Encounter Details +--------+ + + + + | Date | Type | Department | Care Team | Description | +--------+ + + + + | 11/06/ | Abstract | Digestive Health | Shereen Georges, | | | 2014 | | Center at [facility] [address] | ACNP [address] | | | | | [address] | Ave [place], [place] | | | | | for Health and | [address] | | | | | [facility] 2 | | | | | | [place], [place] | | | | | | [address] | | | | | | | [...] Rd | | | | | | [place], [place] | | | | | | [address] | | | | | | [phone] | | | | | | | | +--------+---------+ + + + documented as of this encounter Visit Diagnoses Not on filedocumented in this encounter"
--- OUTSIDE RECORDS SUMMARY | ~2020-04-17 | XMS | Encounter Summary ---
Demographics + + + | Address | [address] | | | [place] [address] | + + + | Home Phone [...] | Author | [facility] | | | and Jeffana | + + + | Organization | [facility] | | | [...] Team Providers + +------+ + | Care Art Therapy Specialist Name | Role | Phone | + +------+ + PCP | Unavailable | + +------+ + Encounter Details +--------+ + + + + | Date | Type | Department | Care Team | Description | +--------+ + + + + | 02/17/ | Orders Only | [facility] | Provider, | Pure | | 2018 | | SYSTEM GENERIC OP | [address] | hyperglyceridemia; | | | | CONVERSION [address] | [address] | Hypokalemia; | | | | [address] [place], [place] | [place] [address] | Dehydration; | | | | [address] | | Hyperuricemia | | | | [phone] | | without signs of | | [...] | | | | | [place] [address] | | | | | | [phone] | | | | | | | [...]
--- OUTSIDE RECORDS SUMMARY | ~2020-04-17 | XMS | Encounter Summary ---
Demographics + + + | Address | [address] | | | [place] [address] | + + + | Home Phone [...] + | Katalina Padilla | ECON | [address] | | | | | [place], [place] | | | | | [address] | | + + + + + | Ellie Vang | ECON | Unknown | | + + + + + Care Team Providers + +------+ + | Care Service Cashier Name | Role | Phone | [...] | | | | and over, | [place], [place] | and Healing, | | | | | adult (HCC) | [address] | Building [address], | | | | | Severe | Phone: | 1st Floor | | | | | muscle | | [place], [place] | | | | | deconditioni | Fax: | [address] | | | | | ng | [phone] | Phone: | | | | | Procedures | | [phone] | | | | | PHYSICAL | | Fax: | | | | | THERAPY | | [phone] | | | | | REFERRAL | | | +--------+--------+ + + + + Encounter Details +--------+ + + + + | Date | Type | Department | Care Team | Description | +--------+ + + + + | 02/02/ | Sharepoint Admin | Digestive Health | Shereen Georges, | Morbid obesity with | | 2017 | | Center at [facility] [address] | ACNP [address] | BMI of 70 and over, | | | | [address] | Ave [place], [place] | adult (HCC) (Primary | | | | for Health and | [address] | Dx); Severe muscle | | | | Healing, [address] | | deconditioning | | | | [place], [place] | | | | | | [address] | | | | | | | [...] | | 2020 | Visit | | [address] | | | | | | [address] | | | | | | [place], [place] | | | | | | [address] | | | | | | [phone] | | | | | | | [...]
--- OUTSIDE RECORDS SUMMARY | ~2020-04-17 | XMS | Encounter Summary ---
Demographics + + + | Address | [address] | | | [place] [address] | + + + | Home Phone [...] [place], [place] | | | | | [address] | | + + + + + | Ellie Vang | ECON | Unknown | | + + + + + Care Team Providers + +------+ + | Care Traveling Operator Name | Role | Phone | [...] | | | | | | | [address] | | | | | | | [address] | | | | | | | [place], | | | | | | | [place] | | | | | | | [address] | | | | | | | Phone: | | | | | | | [phone] | | | | | | | Fax: | | | | | | | [phone] | +--------+--------+ + + + + Encounter Details +--------+---------+ + + + | Date | Type | Department | Care Team | Description | +--------+---------+ + + + | 04/14/ | Office | Digestive Health | Hernandez Brian, | Morbid obesity (HCC) | | 2013 | Visit | Center at [facility] [address] | [address] | (Primary Dx); 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 Dr. Guillory in [place] has been following her since January, with CT scan obtained at [facility] in [place] 02/09/2013 (images in IMPAX), demonstrating "recurrent hypogastric [...] up with her providers at [facility] to include a visi [...] recommend bypass before hernia repair. She saw . Dr. Franks today who started her on phentermine and a fingerstick A1c was 5.0. She desires bypass surgery, per patient report has lost 112 lbs on her own and continues he r weight loss efforts. She saw a repair servicer today and Melida came in to discuss [...] and well perfused. ABDOMEN: Type III [facility] to her knees. There is a well [...] | | | | | [place], [place] | | | | | | [address] | | | | | | [phone] | | | | | | | [...]
--- OUTSIDE RECORDS SUMMARY | ~2020-04-17 | XMS | Encounter Summary ---
Demographics + + + | Address | [address] | | | [place] [address] | + + + | Home Phone [...] [place], [place] | | | | | [address] | | + + + + + | Ellie Vang | ECON | Unknown | | + + + + + Care Team Providers + +------+ + | Care Pizzamaker Name | Role | Phone | + [...] | HA Roldan, | | | with RPG PROGRAMMER | | hypertension | [address] | GEMA JIANG | | | | | Right | [address] | [address] | | | | | heart | [place], [place] | [facility] | | | | | failure | [address] | Rd [facility] | | | | | ([facility]) Type | Phone: | [place] | | | | | 2 diabetes | [phone] | [address] | | | | | mellitus | Fax: | Phone: | | | | | without | [phone] | [phone] | | | | | complication | | Fax: | | | | | , with | | [phone] | | | | | long-term | | | | | | | current use | | | | | | | of insulin | | | | | | | ([facility]) | | | +--------+ + + + + + Encounter Details +--------+---------+ + + + | Date | Type | Department | Care Team | Description | +--------+---------+ + + + | 02/02/ | Office | Digestive Health | [address], | Morbid obesity with | | 2017 | Visit | Center at [facility] [address] | [facility] [place] [address] | BMI of 70 and over, | | | | [address] [facility] | [address] | adult (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); Chronic | | | | | | diastolic heart | | | | | | failure ([facility]) | +--------+---------+ + + + [...] of Visit: 10:03 to 10:30 (27 minutes jzjn-nd-halh with patient) (1 hour ap point not [...] eat like she should, tries to eat roofer applicator things and this does not help. Food [...] [facility]) TIA (transient ischemic attack) due [...] post-surgery diet progression. 4. Call or send [employer] message to dietitian with any questions. Contact information was provided. Follow up with dietitian prior to surgery (take 2 Weight management classes as part of 6 mo [facility] supervised diet). [address], [facility] Bariatrics [phone] documented i n this encounter Plan of Treatment +--------+---------+ + + + | Date | Type | Specialty | Care Team | Description | +--------+---------+ + + + | 06/08/ | Office | Plastic Surgery | Antoinette Hale, | | | 2019 | Visit | | [address] | | | | | | [address] | | | | | | [place], [place] | | | | | | [address] | | | | | | [phone] | | | | | | | | +--------+---------+ + + + documented as of this encounter Procedures + +--------+ + + + | Procedure Name | Priori | Date/Time | Associated Diagnosis | Comments | | | ty | | | | + +--------+ + + + | ID MNT RE-ASSESSMNT | Routin | 02/02/2017 | [...] | | | | | heart failure ([facility]) | [...]
--- OUTSIDE RECORDS SUMMARY | ~2020-04-17 | XMS | Encounter Summary ---
Demographics + + + | Address | [address] | | | [place] [address] | + + + | Home Phone [...] + + + + + | Katalina Paidlla | ECON | [address] | | | | | [place], [place] | | | | | [address] | | + + + + + | Ellie Vang | ECON | Unknown | | + + + + + Care Team Providers + +------+ + | Care District Wildlife Manager Name | Role | Phone | [...] | | | | | essential | [address] | [address] | | | | | hypertension | [address] | [address] | | | | | Type II or | [address] | [place], [place] | | | | | unspecified | [place] | [address] | | | | | type | [phone] | Phone: | | | | | diabetes | Phone: | [phone] | | | | | mellitus | [phone] | Fax: | | | | | without | Fax: | [phone] | | | | | mention of | [phone] | | | | | | complication [...] Visit | Preventive at [facility] | MD [address] | mellitus (HCC) | | | | [address] | [place], [place] | (Primary Dx) | | | | [facility] | [address] | | | | | and Healing, | [phone] | | | | | [address] | | | | | | [place], [place] | | | | | | [address] | | | | | | [phone] | | | +--------+---------+ + + + [...] Wi ll discuss with Dr. Brian and labor standards director her best strategies for meeting weight loss [...] Rd | | | | | | [place], [place] | | | | | | [address] | | | | | | [phone] | | | | | | | [...] [facility] | [address] | [place] [address] | | | SERVICES, SPECIAL | PARK [...]
--- OUTSIDE RECORDS SUMMARY | ~2020-04-17 | XMS | Encounter Summary ---
Demographics + + + | Address | [address] | | | [place] [address] | + + + | Home Phone [...] [place], [place] | | | | | [address] | | + + + + + | Ellie Vang | ECON | Unknown | | + + + + + Care Team Providers + +------+ + | Care Healthcare Account Manager Name | Role | Phone | + +------+ + | Kenyatta Cardenas MD | PCP | | + +------+ + Reason for Visit +--------+--------+ + | Reason | Onset | Comments | | | Date | | +--------+--------+ + | Other | 05/20/ | | | | 2019 | | +--------+--------+ + Encounter Details +--------+ + + + + | Date | Type | Department | Care Team | Description | +--------+ + + + + | 05/20/ | Telephone | [facility] | Chilo | Yamil | | 2019 | | Center at [facility] [address] | [address] | | | | | [facility] | [facility] | | | | | [facility] and | [place], [place] | | | | | [place] [address] | [address] | | | | | [place], [place] | [phone] | | | | | [address] | | | | | | [phone] | | | +--------+ + + + [...] this encounter Miscellaneous Notes Telephone Encounter - Silvestre Lombardo RN - 05/20/2019 9:20 AM PDTPt called in about symp toms/concerns. Concern: nausea and abdominal pain (hernia pain) Onset of symptoms: 1 weeks Fever: none, chills and recent staph infection (finishing antibiotics) Abdominal pain: 05/05, not able to move around very much Description of abdominal pain: retching, sharp, severe, constant and not releived by anythi ng Medications taken for abdominal pain: Oxycodone, ER gave her but she ran out Nausea and/or Vomiting: yes, daily can't keep anything down Medications taken for N&V: Reglan but not helping Last BM: daily Description of last BM: normal for pt, small movements Abdominal distention: yes, severe Passing gas: none Food intake: normal for pt Fluid intake: normal for pt Recommendations: Pt advised to go to the ER because of all her severe symptoms. Pt verbaliz ed understanding and agreement with plan. elephone Encounter - Roxann Pepper - 05/20/2019 9:20 AM PDTPT calling regarding symptoms. Have you recently had a procedure no, surgery no or hepatitis C treatment? no Pt has (symptom) 16 weeks ago Has patient had Fever? No but pt is having chills Has patient had Nausea? yes Has patient had Vomiting? yes Is this new or a change for you? Yes Is this symptom causing you pain?Yes 05/05 Pt said the pain is getting worse lyntorri'd and transferred to RN Advised caller that they will receive a call back from RN or provider within 3 business day s. Caller understands and is agreeable to this. documented in this encounter Plan of Treatment +--------+---------+ + + + | Date | Type | Specialty | Care Team | Description | +--------+---------+ + + + | 06/08/ | Office | Plastic Surgery | Antoinette Hale, | | | 2019 | Visit | | [address] | | | | | | [address] | | | | | | [place], [place] | | | | | | [address] | | | | | | [phone] | | | | | | | | +--------+---------+ + + + documented as of this encounter Visit Diagnoses Not on filedocumented in this encounter"
--- OUTSIDE RECORDS SUMMARY | ~2020-04-17 | XMS | Encounter Summary ---
[...] + | Katalina Padilla | ECON | [address] | | | | | [place], [place] | | | | | [address] | | + + + + + | Ellie Vang | ECON | Unknown | | + + + + + Care Team Providers + +------+ + | Care Grey Roll Man Name | Role | Phone | [...] + + + | Open | | Plastic | Diagnoses | Cristobal, | Pls | | | | Surgery | S/P gastric | Orquidea, EXTENSION ASSOCIATE | Gen/Recon | | | | | bypass | [address] | [address] | | | | | Abdominal | [address] | [address] | | | | | panniculus | [place], [place] | [facility] | | | | | Abdominal | [address] | Health and | | | | | panniculus, | Phone: | Healing, | | | | | symptomatic | | Building 1, | | | | | | Fax: | 5th Floor | | | | | [address] | [phone] | [facility] [place] | | | | | us | | [address] | | | | | candidiasis | | Phone: | | | | | Skin | | [phone] | | | | | breakdown | | | | | | | Procedures | | | | | | | CONSULT TO | | | | | | | SURGERY - | | | | | | | PLASTICS | | | +--------+--------+ + + + + Reason for Visit Consultation (Routine) + +--------+ + + + + | Status | Reason | Specialty | Diagnoses / | Referred By | Referred To | | | | | Procedures | Contact | Contact | + +--------+ + + + + | Pending | | Surgery | | Non-[facility] | Bar | | Review | | | | Epic Dept | [facility] | | | | | | | [facility] [address] | | | | | [address] | | | | | | | Center for | | | | | | | Health and | | | | | | | Healing, | | | | | | | [address] | | | | | | | [place], [place] | | | | | | | [address] | | | | | | | Phone: | | | | | | | | | | | | | | Fax: | | | | | | | [phone] | + +--------+ + + + + Encounter Details +--------+ + + + + | Date | Type | Department | Care Team | Description | +--------+ + + + + | 04/04/ | Telephone-S | Digestive Health | Orquidea Cristobal, | | | 2020 | cheduled | Center at [facility] [address] | EXTENSION ASSOCIATE [address] | | | | | [address] | [facility] [place] | | | | | for Health and | [address] | | | | | Healing, [address] | | | | | | [place], [place] | | | | | | [address] | | | | | | | [...] Instructions Patient Instructions Orquidea Cristobal FNP - 04/04/2020 8:35 AM PDT--continue your protein goal of 60-80 g/day --continue your fluid goal of at least 64 oz/day --continue getting a regular source of exercise --continue taking your vitamins --have your blood work done at your primary care doctor's office and have the results faxed to us --talk to your urologist about your calcium supplements and your kidney stone --skin irritation/infections (Intertriginous candidiasis) Use corn starch to help reduce moisture Place a towel between skin folds to reduce friction and promote drying Use Nystatin powder at first sign of rash, applied twice daily to affected area For worsening rash use: Clotrimazole 1% Topical Cream. Apply to affected area twice daily. Mupirocin 2% Topical Ointment. Apply to affected area 2 times daily. Hydrocortisone 2.5% Cream. Apply a thin layer to affected area twice daily. Apply these all at the same time. Continue for 1-2 days after area is free of redness/irrit ation. Contact us if worsening symptoms --if you develop heartburn (GERD) symptoms, notify us and restart taking Omeprazole (Prilos ec) 20 mg 1 tablet by mouth every morning, 30-60 minutes prior to morning meal --it is important to avoid constipation. There is a lifetime risk of bowel obstruction foll owing the gastric bypass surgery. If you develop signs or symptoms of bowel obstruction you need to be evaluated right away: Inability to pass stool/bowel movement Inability to pass gas Nausea Vomiting Cramping abdominal pain --following gastric bypass you are at increased risk for gastric ulcers. We recommend that you NOT use any tobacco products or NSAIDS (ibuprofen/naproxen). This is FOREVER! --following gastric bypass you must take precautions regarding alcohol consumption. You are at higher risk for increased blood alcohol level with less alcohol volume, decreased sympto ms following alcohol consumption and increased risk of alcoholism and bad outcomes related t o alcohol consumption (such as DUI). --come back to see us for your 3 year follow up visit, sooner if needed documented in this encounter Progress Notes Orquidea Cristobal FNP - 04/04/2020 8:35 AM PDTFormatting of this note might be different f rom the original. BARIATRIC SURGERY FOLLOW-UP Patient agrees to a telephone encounter for today's visit. They understand they may be resp onsible for the balance after insurance processes the claim. The visit took place via telephone with the provider located at the distant site of [facility]. T he patient stated they were located at the originating site of home and were in the state of [place] at the time of the telephone visit. The names of all persons participating in the lexis visit and their roles are: HILDA Davalos and Elzbieta Cristina. ID: Elzbieta Cristina is a 45 y.o. patient who underwent a Nilesh en y gastric bypass on [address] Pandey. The patient is now 2 years post operative and doing well. Last office visit reviewed. Subjective: Elzbieta Cristina is now 2 years postop from RYGB, reports her weight today at 277 lbs, down 95 lbs since DOS. Current BMI calculated at 57. She remains on Phentermine through Dr. Moe reyez and feels that helps to keep her appetite controlled. She has a hx of stricture 05/2018, improved with dilation. She had been struggling with tony e persistent nausea, abdominal pain and diarrhea at her last appointment here 1 year ago. Sh e states the diarrhea and abdominal pain have predominantly resolved, outside of occasional nausea with some foods. No vomiting or dysphagia. Rare constipation, uses Miralax with relie f. She has a hx of ventral hernia s/p repair by Dr. Brian in 2012, states has subsequently d eveloped weakened abdominal muscles and has been referred to Dr. Woo by her PCP for e jose, needs his number to schedule, doesn't have My Chart access. She denies any new or worse eusebio hernia symptoms. She is struggling with excessive skin of pannus, states she has a very large extending pann us and that despite efforts of keeping the skin dry with towels and Gold [address]arris powder, that s he has recurrent yeast rashes, skin tears and bleeding from the rash sites. She has a current kidney stone, is under care of a Urologist in [facility], is scheduled for stent placement next week. She is still taking her oral calcium supplements, states she has not yet discussed her meds or supplements with the Urologist. Bariatric Measures: Activity: walking Fluids: ~50 oz/day Protein: 60-70 g/day Symptoms of GERD? no Currently on GERD medication? no Any foods in particular giving you trouble? As per above Rashes? As per above Bariatric Medications: MVI with iron twice daily: yes Calcium citrate 1500mg daily: yes Vitamin D 1000 mg daily : yes B12 500mcg SL daily or monthly shot: yes H2RB/PPI daily: no Symptoms: Nausea: As per above Dysphagia: None Vomiting: None Heartburn: None Abd Pain: None Constipation: As per above Diarrhea: None Pain Management Physical activity: yes Narcotic no Any form of marijuana use? no Weight at time of surgery: 372--> 319-->295-->271--> 277 (total 95 lb weight loss) There were no vitals taken for this visit. History: Past Medical History: Diagnosis Date Abdominal [...] 70 and over in adult ([facility]) Myalgia and myositis Nausea Neck pain Numbness [...] due to Bromocriptine Type 2 diabetes mellitus ([facility]) 04/14/2013 Past Surgical History Procedure Laterality Date [...] nilesh limb 150 cm or less [address] [place] Cholecystectomy, laparoscopic Social History Socioeconomic History Marital status: Single Spouse name: Not on file Number of children: 1 Years of education: Not on file Highest education level: Not on file Occupational History Occupation: disabled Employer: NONE Social Needs Financial resource strain: Not on file Food insecurity Worry: Not on file Inability: Not on file Transportation needs Medical: Not on file Non-medical: Not on file Tobacco Use Smoking status: Former Smoker Types: Cigarettes Smokeless tobacco: Never Used Tobacco comment: former social smoker Substance and Sexual Activity Alcohol use: No Alcohol/week: 0.0 standard drinks Drug use: No Sexual activity: Not on file Lifestyle Physical activity Days per week: Not on file Minutes per session: Not on file Stress: Not on file Relationships Social connections Talks on phone: Not on file Gets together: Not on file Attends restorationism service: Not on file Active member of club or organization: Not on file Attends meetings of clubs or organizations: Not on file Relationship status: Not on file Other Topics Concern Not on file Social History Narrative Updated 11/09/15 She lives in [place] with her mother and her sister (also her caregiver) lives in an apa rtment/duplex below. She has 2 grandchildren (age 4 and 7) who live with her daughter and son-in-law Her boyfriend lives in [place] HFpEF, DM2, HTN, Sleep Apnea (unable to [...] here and refer her to our cardiac surgeon who also has expertise in physical activity [...] problems Neg Hx Allergies Allergies Allergen Reactions Benadrilina [Diphenhydramine Hcl] Hives and Throat Swelling / Closing Amoxicillin Hives Ibuprofen Bleeding No PO NSAIDs d/t gastric bypass Parlodel [Bromocriptine] Unknown Blood clots Penicillins Hives Zofran [Ondansetron Hcl (Pf)] Hives Medications Current Outpatient Medications: acetaminophen 500 mg oral tablet, Take 2 tablets by mouth e very six hours., Disp: , Rfl: ALPRAZolam 1 mg oral tablet, Take 1 mg by mouth three times daily as needed. , Disp: , Rfl: ascorbic acid (vitamin C) (VITAMIN C) 500 mg oral tablet, Take 1 tablet by mouth once daily ., Disp: 90 tablet, Rfl: 1 atenolol 50 mg oral tablet, Take 50 mg by mouth once daily at bedtime. , Disp: , Rfl: CALCIUM CRB&DBS-D6-TEO20-GENIS ORAL, Take 2 tablets by mouth two times daily., Disp: , Rfl: chlorproMAZINE 25 mg oral tablet, Take 50 mg by mouth once daily at bedtime., Disp: , Rfl: cyanocobalamin 1,000 mcg oral tablet, Take 1,000 mcg by mouth once daily., Disp: , Rfl: docusate sodium (STOOL SOFTENER) 100 mg oral capsule, Take 200 mg by mouth two times daily. , Disp: , Rfl: enoxaparin 40 mg/0.4 mL subcutaneous syringe, enoxaparin 40 mg/0.4 mL subcutaneous syringe, Disp: , Rfl: ergocalciferol (VITAMIN D2) 50,000 unit oral capsule, Take 1 capsule by mouth every seven d ays. (Patient taking differently: Take 50,000 Units by mouth every Thursday. ), Disp: , Rfl: Ferrous Gluconate 324 mg total salt (36 mg elemental iron) oral tablet, Take 1 tablet by mo uth once daily., Disp: 90 tablet, Rfl: 1 HYDROmorphone (DILAUDID) 2 mg oral tablet, Take 1 tablet by mouth every six hours as needed for severe pain., Disp: 10 tablet, Rfl: 0 INTRAUTERINE DEVICE (IUD) UTRN, by intrauterine route., Disp: , Rfl: lidocaine 5 % topical adhesive patch,medicated, Apply 1 patch to skin every twenty-four crista rs. Apply patch to most painful area; Patch may remain in place for up to 12 hours in any 24 -hour period., Disp: 8 patch, Rfl: 0 loperamide 2 mg oral capsule, Take 2 mg by mouth four times daily as needed for diarrhea., Disp: , Rfl: lurasidone (LATUDA) 20 mg oral tablet, Take 40 mg by mouth once daily at bedtime. , Disp: , Rfl: magnesium oxide 400 mg oral tablet, Take 400 mg by mouth two times daily. , Disp: , Rfl: menthol/zinc oxide (G[address] MEDICATED TOP), Apply to infected area two times daily., Disp : , Rfl: metoclopramide HCl 10 mg oral tablet, Take 10 mg by mouth every six hours as needed for elisa sea/vomiting., Disp: , Rfl: multivitamin oral tablet, Take 1 tablet by mouth once daily., Disp: , Rfl: PARoxetine 40 mg oral tablet, Take 40 mg by mouth once daily at bedtime. , Disp: , Rfl: PHENTERMINE 37.5 mg oral tablet, TAKE 1 TABLET BY MOUTH IN THE MORNING BEFORE BREAKFAST, D isp: 90 tablet, Rfl: 1 polyethylene glycol 17 gram oral powder in packet, Mix 1-2 packets and take orally once filemon ly as needed., Disp: , Rfl: potassium chloride 20 mEq oral packet, Take 40 mEq by mouth two times daily. , Disp: , Rfl: pramipexole 0.125 mg oral tablet, Take 0.25 mg by mouth once daily at bedtime. , Disp: , Rf l: rizatriptan (MAXALT) 5 mg oral tablet, Take 5 mg by mouth as needed. May repeat in 2 hours as needed (Max: 30 mg per 24 hour period)., Disp: , Rfl: spironolactone 50 mg oral tablet, Take 50 mg by mouth once daily., Disp: , Rfl: thyroid (HYDROLOGICAL TECHNICAL OFFICER THYROID) 30 mg oral tablet tab, Take 30 mg by mouth once daily at bedtime., Dis p: , Rfl: topiramate 100 mg oral tablet, Take 1 tablet by mouth three times daily. Indications: Indic ations: essential tremor, Disp: 270 tablet, Rfl: 3 torsemide 100 mg oral tablet, Take 1 tablet by mouth three times daily. Resume half dose fo r first week post opertative, Disp: , Rfl: warfarin 5 mg oral tablet, Take 10 mg by mouth once daily. , Disp: , Rfl: 0 Physical Exam: PHONE VISIT Assessment/Plan: Elzbieta Cristina is a 45 y.o. female who is 2 years S/P Nilesh en y gastric bypass. 1. S/p Nilesh en y gastric bypass doing well. -denies nausea, vomiting, diarrhea -reviewed constipation management, red flags and when to seek care -reviewed the lifetime risk of bowel obstruction/internal hernia, so monitor for s/s of bow el obstruction and to be seen early if pt experiences these problems -continue with protein goal of 60-80g/day -continue with fluid intake goal of at least 64oz/day -discussed diet choices, healthy foods, ways to increase protein and iron -discussed daily exercise and types of exercises 2. Intertriginous candidiasis -use corn starch to help reduce moisture -place a towel between skin folds to reduce friction and promote drying -skin irritation/infections (Intertriginous candidiasis) Use corn starch to help reduce moisture Place a towel between skin folds to reduce friction and promote drying Use Nystatin powder at first sign of rash, applied twice daily to affected area For worsening rash use: Clotrimazole 1% Topical Cream. Apply to affected area twice daily. Mupirocin 2% Topical Ointment. Apply to affected area 2 times daily. Hydrocortisone 2.5% Cream. Apply a thin layer to affected area twice daily. Apply these all at the same time. Continue for 1-2 days after area is free of redness/irrit ation. -Rx's sent for Nystatin, Clotrimazole, Mupirocin and Hydrocortisone -contact us if worsening symptoms -referral given to Plastic Surgery for consultation on panniculectomy 3. Risk for B12 deficiency, calcium malabsorption, protein malabsorption, vitamin d deficie ncy and iron deficiencies -Labs today: CBC, CMP, Vitamin B1, Vitamin D, Vitamin A, Vitamin E, INR, Zinc, Copper, MMA, Homocysteine , PTH, Ferritin and Iron/TIBC, pt to have done through PCP office and have results faxed to us, will notify of results and replace as needed -continue with vitamin supplements as directed 4. Gastric Ulcer Prevention/GERD -pt advised to restart taking PPI if having GERD symptoms and notify us. -reinforced No NSAIDs and NO NICOTINE to avoid risk of marginal ulcers 5. Hx ventral hernia -gave pt phone number for Dr. Woo's office -reviewed red flags and when to seek care 6. Kidney stone -reviewed with pt stone composition and relationship in some cases to supplemental calcium use, encouraged pt to d/w Urologist her supplemental calcium use 7. Progress of Chronic Medical Conditions -AMARA: on cpap -GERD: na -Hyperlipidemia: na -HTN: on medication -Diabetes: off all DM meds Return to bariatric in 1 year for follow up visit See your primary care provider for adjusting any other medications. Call if any abdominal pain, n/v/d or other issues. Pt agrees to plan and will call and/or send [employer] message if any issues. The patients encounter was accomplished via a telephone call today due to COVID-19 precauti onary measures to limit the patient's unnecessary exposure. Time spent on the call: 12 min. Bariatric Surgery Nurse Practitioner [facility] | [address] | [place], [place] | [address] | documented in this encounter Plan of [...] Rd | | | | | | [place], [place] | | | | | | [address] | | | | | | [phone] | | | | | | | | +--------+---------+ + + + + +------+--------+ + + | Name | Type | Priori | Associated Diagnoses | Order Schedule | | | | ty | | | + +------+--------+ + + | CBC ONLY | Lab | Routin | S/P gastric bypass | Expected: 04/04/2020 | | | | e | | (Approximate), | | | | | | Expires: 05/04/2021 | + +------+--------+ + + | COMPLETE METABOLIC | Lab | Routin | S/P gastric bypass | Expected: 04/04/2020 | | SET | | e | | (Approximate), | | (NA,K,CL,CO2,BUN,CRE | | | | Expires: 05/04/2021 | | AT,GLUC,CA,AST,ALT,B | | | | | | MARGIE TOTAL,ALK | | | | | | PHOS,ALB,PROT TOTAL) | | | | | + +------+--------+ + + | FERRITIN | Lab | Routin | S/P gastric bypass | Expected: 04/04/2020 | | | | e | | (Approximate), | | | | | | Expires: 05/04/2021 | + +------+--------+ + + | HOMOCYSTEINE TOTAL, | Lab | Routin | S/P gastric bypass | Expected: 04/04/2020 | | PLASMA | | e | | (Approximate), | | | | | | Expires: 05/04/2021 | + +------+--------+ + + | IRON AND TIBC | Lab | Routin | S/P gastric bypass | Expected: 04/04/2020 | | | | e | | (Approximate), | | | | | | Expires: 05/04/2021 | + +------+--------+ + + | METHYLMALONIC ACID, | Lab | Routin | S/P gastric bypass | Expected: 04/04/2020 | | SERUM | | e | | (Approximate), | | | | | | Expires: 05/04/2021 | + +------+--------+ + + | COPPER, SERUM | Lab | Routin | S/P gastric bypass | Expected: 04/04/2020 | | | | e | | (Approximate), | | | | | | Expires: 05/04/2021 | + +------+--------+ + + | INR | Lab | Routin | S/P gastric bypass | Expected: 04/04/2020 | | | | e | | (Approximate), | | | | | | Expires: 05/04/2021 | + +------+--------+ + + | PTH, SERUM | Lab | Routin | S/P gastric bypass | Expected: 04/04/2020 | | | | e | | (Approximate), | | | | | | Expires: 05/04/2021 | + +------+--------+ + + | VITAMIN A, SERUM | Lab | Routin | S/P gastric bypass | Expected: 04/04/2020 | | | | e | | (Approximate), | | | | | | Expires: 05/04/2021 | + +------+--------+ + + | VITAMIN B1, WHOLE | Lab | Routin | S/P gastric bypass | Expected: 04/04/2020 | | BLOOD | | e | | (Approximate), | | | | | | Expires: 05/04/2021 | + +------+--------+ + + | VITAMIN D, | Lab | Routin | S/P gastric bypass | Expected: 04/04/2020 | | 25-HYDROXY, SERUM | | e | | (Approximate), | | | | | | Expires: 05/04/2021 | + +------+--------+ + + | VITAMIN E, SERUM | Lab | Routin | S/P gastric bypass | Expected: 04/04/2020 | | | | e | | (Approximate), | | | | | | Expires: 05/04/2021 | + +------+--------+ + + | ZINC, SERUM | Lab | Routin | S/P gastric bypass | Expected: 04/04/2020 | | | | e | | (Approximate), | | | | | | Expires: 05/04/2021 | + +------+--------+ + + documented as of this encounter Visit Diagnoses + + | Diagnosis | + + | S/P gastric bypass - Primary Bariatric surgery status | + + | Kidney stone Calculus of kidney | + + | Abdominal panniculus Localized adiposity | + + | Abdominal panniculus, symptomatic Localized adiposity | + + | Intertriginous candidiasis Candidiasis of skin and nails | + + | Skin breakdown Other specified hypertrophic and atrophic condition of skin | + + documented in this encounter
--- OUTSIDE RECORDS SUMMARY | ~2020-04-17 | XMS | Encounter Summary ---
Demographics + + + | Address | [address] | | | [place] [address] | + + + | Home Phone [...] [place], [place] | | | | | [address] | | + + + + + | Ellie Vang | ECON | Unknown | | + + + + + Care Team Providers + +------+ + | Care Business Process Lead Name | Role | Phone | [...] Records | | 2020 | | Center [place] [address] [address] | MD Jor[address] | Review | | | | [facility] | [facility] | | | | | [facility] and | [place], [place] | | | | | [place] [address] | [address] | | | | | [place], [place] | [phone] | | | | | [address] | | | | | | [phone] | | | +--------+ + + + [...] Rd | | | | | | [place], [place] | | | | | | [address] | | | | | | [phone] | | | | | | | | +--------+---------+ + + + documented as of this encounter Visit Diagnoses Not on filedocumented in this encounter"
--- OUTSIDE RECORDS SUMMARY | ~2020-04-17 | XMS | Encounter Summary ---
Demographics + + + | Address | [address] | | | [place] [address] | + + + | Home Phone [...] | + + +---------+ + | Ellie Espinaljungrye | ECON | Unknown | | + + +---------+ + Care Team Providers + +------+ + | Care Staffing Analyst Name | Role | Phone | + +------+ + PCP | Unavailable | + +------+ + Encounter Details +--------+ + + + + | Date | Type | Department | Care Team | Description | +--------+ + + + + | 10/14/ | Orders Only | [facility] | Conversion | | | 2017 | | [facility] | Transaction, | | | | | [address] | Provider Unknown | | | | | [address] [place], [place] | [phone] | | | | | [address] | | | | | | [phone] | | | +--------+ + + + [...] D | | | | | | [place] [address] | | | | | | [phone] | | | | | | | [...]
--- OUTSIDE RECORDS SUMMARY | ~2020-04-17 | XMS | Encounter Summary ---
Demographics + + + | Address | [address] | | | [place] [address] | + + + | Home Phone [...] [place], [place] | | | | | [address] | | + + + + + | Ellie Vang | ECON | Unknown | | + + + + + Care Team Providers + +------+ + | Care Senior Licensing Manager Name | Role | Phone | [...] | | 2020 | Visit | | [address] | | | | | | [address] | | | | | | [place], [place] | | | | | | [address] | | | | | | [phone] | | | | | | | | +--------+---------+ + + + documented as of this encounter Visit Diagnoses Not on filedocumented in this encounter"
--- OUTSIDE RECORDS SUMMARY | ~2020-04-17 | XMS | Encounter Summary ---
Demographics + + + | Address | [address] | | | [place] [address] | + + + | Home Phone [...] [place], [place] | | | | | [address] | | + + + + + | Ellie Vang | ECON | Unknown | | + + + + + Care Team Providers + +------+ + | Care Spare Person Name | Role | Phone | [...] | 2015 | Visit | Center at [facility] [address] | | (Primary Dx) | | | | [address] [facility] | | | | | | for Health and | | | | | | [facility], [address] | | | | | | [facility] [place] | | | | | | [address] | | | | | | [phone] | | | +--------+---------+ + + + [...] documented in this encounter Progress Notes [address], [facility], [place] - 11/06/2014 9:00 AM PDTFormatting of this note might be diff erent from the original. Referring Provider: Fadi Goodrich DO [facility], Pre-Bariatric Surgery Class Pre-Surgery Class #1 prior to having Bariatric Surgery. Documented Time of Class: 2:00 until 3:00 (60 minutes [id number] with patient) OBJECTIVE: Height: Ht Readings from [...] [address], [facility], [place] Pager# [phone] documented in this encounter Plan of Treatment +--------+---------+ + + + | Date | Type | Specialty | Care Team | Description | +--------+---------+ + + + | 06/08/ | Office | Plastic Surgery | Antoinette Hale, | | | 2019 | Visit | | [address] | | | | | | [address] | | | | | | [place], [place] | | | | | | [address] | | | | | | [phone] | | | | | | | | +--------+---------+ + + + documented as of this encounter Visit Diagnoses + + | Diagnosis | + + | Morbid obesity (HCC) - Primary Morbid obesity | + + documented in this encounter
--- OUTSIDE RECORDS SUMMARY | ~2020-04-17 | XMS | Encounter Summary ---
Demographics + + + | Address | [address] | | | [place] [address] | + + + | Home Phone [...] Team Providers + +------+ + | Care Burn Crew Member Name | Role | Phone | + +------+ + PCP | Unavailable | + +------+ + Encounter Details +--------+ + + + + | Date | Type | Department | Care Team | Description | +--------+ + + + + | 10/07/ | Orders Only | [facility] | Dharmesh Escobar, | | | 2017 | | NEPHROLOGY [place] | SUPERVISOR FLOOR ASSEMBLY [address] | | | | | [address] | [address] | | | | | [address] [place], [place] | [place] | | | | | [address] | [address] | | | | | [phone] | [phone] | | | | | | | [...] D | | | | | | [place] [address] | | | | | | [phone] | | | | | | | [...] | | | LAB | | | [place] | | | | | + +---------+ [...]
--- OUTSIDE RECORDS SUMMARY | ~2020-04-17 | XMS | Encounter Summary ---
Demographics + + + | Address | [address] | | | [place] [address] | + + + | Home Phone [...] [place], [place] | | | | | [address] | | + + + + + | Ellie Vang | ECON | Unknown | | + + + + + Care Team Providers + +------+ + | Care Kiss Mixer Name | Role | Phone | + +------+ + | Kenyatta Cardenas MD | PCP | | + +------+ + Encounter Details +--------+ + + + + | Date | Type | Department | Care Team | Description | +--------+ + + + + | 01/26/ | Abstract | Cardiology | Branden Gutiérrez MD | | | 2019 | | Preventive at [facility] | [address] | | | | | [address] | [place], [place] | | | | | [facility] | [address] | | | | | and [place], | [phone] | | | | | [address] | | | | | | [place], [place] | | | | | | [address] | | | | | | [phone] | | | +--------+ + + + [...] Rd | | | | | | [place] | | | | | | [address] | | | | | | [phone] | | | | | | | | +--------+---------+ + + + documented as of this encounter Visit Diagnoses Not on filedocumented in this encounter"
--- OUTSIDE RECORDS SUMMARY | ~2020-04-17 | XMS | Encounter Summary ---
Demographics + + + | Address | [address] | | | [place] [address] | + + + | Home Phone [...] [place], [place] | | | | | [address] | | + + + + + | Ellie Vang | ECON | Unknown | | + + + + + Care Team Providers + +------+ + | Care Bagger Meat Name | Role | Phone | + [...] Rd | | | | | | [place], [place] | | | | | | [address] | | | | | | [phone] | | | | | | | | +--------+---------+ + + + documented as of this encounter Visit Diagnoses Not on filedocumented in this encounter"
--- OUTSIDE RECORDS SUMMARY | ~2020-04-17 | XMS | Encounter Summary ---
Demographics + + + | Address | [address] | | | [place] [address] | + + + | Home Phone [...] [place], [place] | | | | | [address] | | + + + + + [...] floor | | | | | | [place], [place] | | | | | | [address] | | | | | | [phone] | | | +--------+------+ + + + [...] | | 2019 | Visit | | [address] | | | | | | [address] | | | | | | [place], [place] | | | | | | [address] | | | | | | [phone] | | | | | | | [...] | + + + + + | [facility] | [address] [facility] | [place] [address] | | | SERVICES, CORE | PARK [...] [facility] | [address] | [place] [address] | | | SERVICES, CORE | [...] [facility] | [address] | [place] [address] | | | SERVICES, SPECIAL | CLARENCE [...]
--- OUTSIDE RECORDS SUMMARY | ~2020-04-17 | XMS | Encounter Summary ---
Demographics + + + | Address | [address] | | | [place] [address] | + + + | Home Phone [...] Team Providers + +------+ + | Care Black Off Worker Name | Role | Phone | + +------+ + PCP | Unavailable | + +------+ + Encounter Details +--------+ + + + + | Date | Type | Department | Care Team | Description | +--------+ + + + + | 02/03/ | Abstract | [facility] | Anitha, | | | 2018 | | GASTROENTEROLOGY | MD [address] | | | | | [address] [facility] | Mayur Blackwell | | | | | [address] | [place] [address] | | | | | [address] | | | | | | [phone] | | | +--------+ + + + [...] | | | | | [place] [address] | | | | | | [phone] | | | | | | | [...] 2-Macroglob | | | | | | ulshailesh, Qn | | | | | + [...]
--- OUTSIDE RECORDS SUMMARY | ~2020-04-17 | XMS | Encounter Summary ---
Demographics + + + | Address | [address] | | | [place] [address] | + + + | Home Phone [...] [place], [place] | | | | | [address] | | + + + + + | Ellie Vang | ECON | Unknown | | + + + + + Care Team Providers + +------+ + | Care Outreach Counselor Name | Role | Phone | [...] | Event | Medicine Clinic at | [place], [place] | | | | | [facility] | [address] | | | | | [address] | | | | | | [facility] | | | | | | and Healing, | | | | | | [address] | | | | | | [place], [place] | | | | | | [address] | | | | | | [phone] | | | +--------+ + + + [...] this encounter Miscellaneous Notes Addendum Note - Aide Birmingham RN - 06/14/2019 2:20 PM PST Addendum created 06/14/19 1420 by Aide Birmingham RN Clinical Note Signed [facility] PreOp Note - Aide Silver RN - 06/02/2019 3:07 PM PSTROS: HPI: PICC on right arm 06/02/2019 Given patient recently prescribed Lovenox inj and Warfarin, email was sent to Dr. Ansley patterson regarding updated patient status. Pt surgery cancelled as of 06/06/2019. Prior Anesthetic Problems: No Pulmonary: Patient instructed to bring CPAP on DOS no shortness of breath no cough no stridor no w heezing no Recent Respiratory Infection Pt. Has no asthma no COPD Dx of sleep apnea Use s BiPap/CPAP Cardiovascular: Able to climb at least 1 flight of stairs Patient denies chest pain/pressure Functional Capacity: Moderate - cyanosis, palpitations and syncope no chest pain CHF hypertension no CAD Sx no valvu lar problems/murmurs no arrhythmia no Cardiac assist devices no pacemaker/ICD GI/Hepatic: S/P Frandy en Y, 02/2018 no GI Bleed no GERD no liver disease no hepatitis Renal: no renal failure no electrolyte abnormalities no dialysis Urology/Bulk Fluids Handler: LMP: 05/22/2019 patient reports irregular and has an IUD Urologic Conditions: nephrolithias is Endo: S/p gastric bypass and DM2 resolved Endocrine Other Thyroid:+ hypothyroidism no Hx Corticos teroid Use Neuro/Psych: Stroke, embolic, parlodel caused allergic reaction, age 18 post , no residual deficit s No Head Conditions No Spine Conditions No Neuromuscular Conditions Psych Disorder depres gilbert and anxiety pain (Migraine, abdomen pain and pain in lungs "due to blood clots in my jimena ngs") Current pain score: 10 Chronic pain related to scheduled surgery Chronic Pain Musculoskeletal: arthritis Type: osteoarthritis Manifestations: Extremities (Arms, Legs, Hands) and Lumbar-T horacic spine Additional Comments: No Muscular Disorders Heme/Onc: Upper right shoulder DVT discovered 04/2019 2 embolisms in lungs discovered 06/02/2019 Given patient recently prescribed Lovenox inj and Warfarin, email was sent to Dr. Ansley patterson regarding updated patient status. According to "Notes" tab, in Encounters on 06/06/2019, p atient advised by clinic RN that surgery will be postponed until July. Pt. 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 F scheduled for 06/24/2019: OPEN VENTRAL HERNIA REPAIR WITH BIOLOGICAL MESH Locatio n: [facility] Provider: Jorje Woo MD. Past medical hx is significant for AMARA, MRSA, DVT, PE, ventral hernia, asthma, HTN, CHF, ch ronic pain, hypothyroidism and s/p Frandy en Y in 2018. Weight__276__lbs. Height__5__ Ft.__0__Inches BMI __53.9__ H&P reviewed, located under EPIC encounter tab, ED by Dr. Nay Joe dated 05/13/2019 . Patient interview complete and pertinent updates documented under patient history. Patient received pre-op instructions per AVS and verbalized good understanding. Phone appoi ntment completed as scheduled. Transportation: TBD (patient working with social sciences department chair) documented in this enco unter Plan of [...] Rd | | | | | | [place] | | | | | | [address] | | | | | | [phone] | | | | | | | | +--------+---------+ + + + documented as of this encounter Visit Diagnoses Not on filedocumented in this encounter
--- OUTSIDE RECORDS SUMMARY | ~2020-04-17 | XMS | Encounter Summary ---
Demographics + + + | Address | [address] | | | [place] [address] | + + + | Home Phone [...] Providers + +------+ + | Care Drop Forger Helper Name | Role | Phone [...] [address] | | | | | [place], [place] | [place] [address] | | | | | [address] | [phone] | | | | | [phone] | | | +--------+ + + + [...] D | | | | | | [place] [address] | | | | | | [phone] | | | | | | | [...] 5.71 | | | RAP: 5 mmHg Closet Builder: JESSICA Authenticated by: BENJY | | | [...] cmLVPWd: 0.81 | | cmLVOT Area: 3.98 [id number] Diam: 2.25 cm%FS: 32.91 %EF(Teich): 61.28 | [...] (A-L): 20.64 ml/m2LAAs A2C: 14.37 | | [id number] A-L A2C: 40.74 mlLALs A2C: 4.30 cmLAAs A4C: 16.09 hs2VZRBU A-L A4C: | | 43.02 mlLALs A4C: 5.10 cmRAAs: 13.58 [id number] A-L: 33.08 mlRAESV MOD: 32.14 | | mlRALs: 4.73 cmTAPSE: 2.16 cmAV maxP.33 mmHgAV meanP.31 mmHgAV Vmax: | | 1.60 m/Genesis Vmean: 1.08 m/Genesis VTI: 25.19 cmAVA Vmax: 2.75 cm2AVA (VTI): 3.06 | | [id number] Vmax: 0.00 cm2/m2AVAI (VTI): 0.00 cm2/m2LVOT maxP.93 mmHgLVOT meanPG: | | 2.50 mmHgLVSI Dopp: 34.92 ml/m2LVSV Dopp: 77.18 mlLVOT Vmax: 1.11 m/sLVOT Vmean: | | 0.73 m/sLVOT VTI: 19.34 cmMV A Jeffrey: 0.81 m/sMV DecT: 249.81 msMV E Jeffrey: 0.82 | | m/sMV E/A Ratio: 1.01MV PHT: 72.44 msMVA By PHT: 3.03 ay8Mhjpxg e': 0.07 | | m/sSeptal E/e': 11.80Lateral e': 0.14 m/sLateral E/e': 5.71RAP: 5 mmHg | | Closet Builder: HONEYuthenticated by: Shirley SILVER Date/Time: 02-16-2017 18:47:15 [...] | |RAP: 5 mmHg | | | |Closet Builder: | |Authenticated by: BENJY HANKNIS MD | |Report Date/Time: 02-16-2017 18:47:15 | [...]
--- OUTSIDE RECORDS SUMMARY | ~2020-04-17 | XMS | Encounter Summary ---
Demographics + + + | Address | [address] | | | [place] [address] | + + + | Home Phone [...] [place], [place] | | | | | [address] | | + + + + + | Ellie Vang | ECON | Unknown | | + + + + + Care Team Providers + +------+ + | Care Metal Tester Name | Role | Phone | + +------+ + | Fadi Goodrich DO | PCP | | + +------+ + Encounter Details +--------+ + + + + | Date | Type | Department | Care Team | Description | +--------+ + + + + | 07/06/ | Abstract | Digestive Health | Clinic, Surgery | | | 2016 | | [place] [address] [address] | | | | | | [facility] | | | | | | for Health and | | | | | | [facility] [address] | | | | | | [place], [place] | | | | | | [address] | | | | | | [phone] | | | +--------+ + + + [...] | | 2019 | Visit | | [address] | | | | | | [address] | | | | | | [place], [place] | | | | | | [address] | | | | | | [phone] | | | | | | | | +--------+---------+ + + + documented as of this encounter Visit Diagnoses Not on filedocumented in this encounter"
--- OUTSIDE RECORDS SUMMARY | ~2020-04-17 | XMS | Encounter Summary ---
Demographics + + + | Address | [address] | | | [place] [address] | + + + | Home Phone [...] [place], [place] | | | | | [address] | | + + + + + | Ellie Vang | ECON | Unknown | | + + + + + Care Team Providers + +------+ + | Care Eap Specialist Name | Role | Phone | [...] floor | | | | | | [place], [place] | | | | | | [address] | | | +--------+ + + + [...] Rd | | | | | | [place], [place] | | | | | | [address] | | | | | | [phone] | | | | | | | | +--------+---------+ + + + documented as of this encounter Visit Diagnoses Not on filedocumented in this encounter"
--- OUTSIDE RECORDS SUMMARY | ~2020-04-17 | XMS | Encounter Summary ---
Demographics + + + | Address | [address] | | | [place] [address] | + + + | Home Phone [...] [place], [place] | | | | | [address] | | + + + + + | Ellie Vang | ECON | Unknown | | + + + + + Care Team Providers + +------+ + | Care Blocker Polishing Name | Role | Phone | + [...] [address] | | | | | [address] [facility] | [address] [place], [place] | | | | | Health and Healing, | [address] | | | | | [place] [address] [facility] | [phone] | | | | | Floor [place], [place] | | | | | | [address] | | | | | | [phone] | | | +--------+ + + + [...] | | 0 | | | | [id number] | mouth two times | | | [...] Rd | | | | | | [place], [place] | | | | | | [address] | | | | | | [phone] | | | | | | | [...] + + + | EXAM: Esophagram with bioinformatics technician radiograph HISTORY: RYGB 03/01/2018, | [facility] | | vomiting/pain ever since COMPARISON: 04/27/2018 CT TECHNIQUE: | RADIOLOGY VOICE | | Financial Internship radiograph was performed. Single contrast exam of the esophagus, | RECOGNITION 2 | | gastric pouch, and gastrojejunostomy in upright positioning. | | | Radiation dose reduction technique was maximized where appropriate | | | using pulsed fluoroscopy and fluoro-store images. Fluoro Time 57 | | | second(s) FINDINGS: Financial Internship shows stone in the upper pole of [...] AM PST EXAM: Esophagram | | with bioinformatics technician radiograph HISTORY: RYGB 03/01/2018, vomiting/pain ever since COMPARISON: | | 04/27/2018 CT TECHNIQUE: Financial Internship radiograph was performed. Single contrast exam of the | | esophagus, gastric pouch, and gastrojejunostomy in upright positioning. Radiation dose | | reduction technique was maximized where appropriate using pulsed fluoroscopy and | | fluoro-store images. Fluoro Time 57 second(s) FINDINGS:Financial Internship shows stone in the upper | | [...]
--- OUTSIDE RECORDS SUMMARY | ~2020-04-17 | XMS | Encounter Summary ---
Demographics + + + | Address | [address] | | | [place] [address] | + + + | Home Phone [...] [place], [place] | | | | | [address] | | + + + + + | Ellie Vang | ECON | Unknown | | + + + + + Care Team Providers + +------+ + | Care Ad Clerk Name | Role | Phone | [...] CHOLECYSTECOMY WITH | | | | Brock [facility] Moreno | Lesly Gutiérrez [place], | INTRA-OP | | | | Hospital Admitting | [place] [address] | CHOLANGIOGRAM | | | | Desk Located on the | [phone] | | | | | 9th floor | | | | | | [place], [place] | | | | | | [address] | | | +--------+---------+ + + + [...] + documented in this encounter Discharge Summaries Tam Starr Md - 02/08/2014 1:05 PM PDTI saw and evaluated the patient. I agree with the f indings and the plan of care as documented in the resident s note. PRADIP STARR MD [facility] [address] [place] [address] orrestValentine MD - 01/24 1:05 PM PDT [facility] [place] DEPARTMENT OF SURGERY EMERGENCY GENERAL SURGERY Division of Trauma and Critical Care INPATIENT PROVIDER DISCHARGE SUMMARY Note Date: 02/08/2014 Admission Date: 02/07/2014 DYLAN ROMERO, Discharge Date: 08 Feb 2014 PCP: Radha Goodrich DO Attending Physician: Raisa Landaverde MD Author: VALENTINE RHODES MD HPI: Dylan Romero is a 38 y.o. Female with morbid obesity, bipolar disorder and Type 2 DM who presented to the [facility] ED ([place], [place]) on 02/06/14, with a week hi story of RUQ abdominal pain that radiates to her back. There, she was found to have leukocyt osis and multiple tiny, mobile stones, + sonographic Peterson's sign on abdominal ultrasound, concerning for acute cholecystitis. She was givenIV antibiotics (cipro, flagyl) and pain med s, then transferred to [facility] by [facility] for further care. Ms. Romero endorsed [...] ready to be discharged to home wi th follow up. Emergency General Surgery Clinic to [...] when you get home Follow up with RADHA GOODRICH DO. Contact information [address] [place] [address] Follow up with Trauma Emergency General Surgery at [facility] In 4 weeks. (follow up in 2-4 weeks ) Contact information [address] [facility] Mailcode: [id number] [address] [place] [address] Thank you for the opportunity to take care of DYLAN ROMERO during this inpatient stay, it has been our pleasure. Please call with any questions, . Discharging Provider: VALENTINE RHODES MD PGY-1, General Surgery Attending Physician: Raisa Landaverde MD documented in this encounte r Discharge Instructions Instructions Bridger Morales RN - 02/08/2014Patient Education Materials: Follow above mat erials Additional Instructions: Follow above instructions Discharge Nurse: BRIDGER OMRALES RN Date: 02/08/2014 Discharge Time: 4:23 PM documented in this encounter Progress Notes Tam Starr Md - 02/08/2014 5:17 AM PDTI saw and evaluated the patient. I agree with the f indings and the plan of care as documented in the resident s note. PRADIP STARR MD [facility] [address] [place] [address] orrest, Valentine Yu MD - 01/24 5:17 AM PDT [facility] [place] DEPARTMENT OF SURGERY EMERGENCY GENERAL SURGERY Division of Trauma and Critical Care Attending Physician: Raisa Landaverde MD Progress Note Note Date: 02/08/2014 [...] Glycemic control: adequate Activity/PT/OT: OOB as tolerated VALENTINE RHODES MD PGY-1, General Surgery [phone] pager number [facility] [place] [address] [facility] [phone] documented in this encounte r H&P Notes Raisa Landaverde MD - 02/07/2014 3:31 AM PDTI saw and evaluated the patient. I agree with the findings and the plan of care as documented in the resident s note. RAISA LANDAVERDE MD [address] [address] Phi Esposito MD,MPH - 02/07/2014 3:31 AM PDTFormatting of this note might be different from the origi nal. HISTORY AND PHYSICAL CC: abdominal pain HPI: Dylan Romero is a 38 y.o. Female with morbid obesity, bipolar disorder and Type 2 DM who presented to the [facility] ED ([place], [place]) on 02/06/14, with a week hi story of RUQ abdominal pain that radiates to her back. There, she was found to have leukocyt osis and multiple tiny, mobile stones, + sonographic Peterson's sign on abdominal ultrasound, concerning for acute cholecystitis. She was given iv antibiotics (cipro, flagyl) and pain m eds, then transferred to [facility] by [facility] for further care. Ms. Romero endorses [address], constant RUQ abdominal pain accompanied by [...] antibiotics 4. Labs 5. Restart home meds Raisa Landaverde MD is the attending of record for this patient encounter. PHI RIZO MD,MPH Attending provider: Raisa Landaverde MDElectronically signed by Raisa Landaverde MD at 2013 1:34 PM PDTdocumented in this encounter Procedure Notes Other, Faculty - 02/09/2014 11:16 PM PDTAssociated Order(s): PROCEDURE NOTEElectronically s igned by Faculty Other at 02/09/2014 11:16 PM Tam Burnham Md - 02/07/2014 7:28 PM PDTI sa w and evaluated the patient. I agree with the findings and the plan of care as documented i n the resident s note. PRADIP STARR MD [facility] [address] [place] [address] I was present for the entire procedure as described in the note for this encounter. PRADIP STARR MD [facility] [address] [place] [address] Mary Melendez MD - 0 02/07/2014 7:28 PM PDTAssociated Order(s): PROCEDURE NOTEOPERATIVE REPORT Procedure Date: 02/07/2014 Author: MARY MAI MD Attending Physician: Tam Starr MD Assistants: MD Mary Romero MD Preoperative Diagnosis: acute cholecystitis Postoperative [...] nt and scrubbed for the entire procedure. Tam Burnham Md - 02/07/2014 6:44 PM PDTI saw and evaluated the patient. I agree with the findings and the plan of care as documented in the resident s note. PRADIP STARR MD [facility] [address] [place] [address] Francisco Snowden MD - 01/24 6:44 PM PDTAssociated Order(s): PROCEDURE NOTEBRIEF OPERATIVE NOTE Procedure Date: 02/07/2014 Author: FRANCISCO MCKEON MD Attending Physician: TAM STARR MD Assistants: Francisco Mckeon, R5; Mary McmanusJerrod, R3 Preoperative Diagnosis: Acute cholecystitis Postoperative Diagnosis: [...] 0 Initial surgical contact: EGS at pager [phone] documented in this encounte r Miscellaneous Notes Scan - Other, Faculty - [...] Events of this stay (w/date): Transfer from [place] PmHx: DMII;Migraines; open appy; umbilical hernia repair [...] Events of this stay (w/date): Transfer from [place] PmHx: DMII;Migraines; open appy; umbilical hernia repair [...] pain medication information: none Functional Epidural: No PATIENT ESCORT: No Respiratory: RR: 19, O2 Sat: 96 [...] FC Contact Name: Ellie Vang Contact Number: [phone] Family contacted: Yes Comment: Belongings:in Pt's room can - Other, [facility] ulty - 02/07/2014 9:24 AM PDT can Louise Lobo Faculty - 02/07/2014 9:04 AM PDT can Louise Lobo, Faculty - 02/07/2014 9:04 AM PDT lan of Kelly Shore RN - 02/07/2014 8:12 AM PDTProblem: Case Management Goals Goal: Discharge Needs Met Outcome: Gradual progress toward goal Initial Case Management Note Reason for admission: Dylan Romero is a 38 y.o. Female with morbid obesity, bipolar disorder and Type 2 DM who presented to the [facility] ED ([place]) on 01/24 11/07, with a week history of RUQ abdominal pain that radiates to her back. There, she was fo und to have leukocytosis and multiple tiny, mobile stones, concerning for acute cholecystit is. She was given iv antibiotics (cipro, flagyl) and pain meds, then transferred to [facility] by [facility] for further care. Pre-admission living situation: Lives in [facility] Pre-admission functional status: Hx of obesity Family/support system: Mother, Katalina Insurance/funding in place: [employer] Anticipated case management discharge needs: Will follow for any needs from CM depar tment See MD notes, AVS and any ancillary consultation notes for further discharge or f/u needs. Mary Alice Strauss RN, pager [phone] [facility] damianJayant - 02/07/2014 3:04 AM PDTLF req extra help on the pad. Pt is obese. ED Evy e and Patient Transportation advised. 14 3:04 AM [facility] center[facility] - 02/07/2014 3:03 AM PDTPt is large, LF12 req uesting extra help to the helipad. 3: 03 [facility] 02/07/2014 3:00 AM PDTLF12 enr, ETA [...] Events of this stay (w/date): Transfer from [place] PmHx: DMII;Migraines; Lap appy; abdominal hernia repair [...] source of abdominal pain Discharge plan: TBD [facility] Jayant Bello - 02/06/2014 9:24 PM PDTGRP 18 Paged. [facility] - 02/06/2014 9:14 PM [id number]; Poss. Cholecystitis; Abd pain; Vom & Diarrhea. Morbid obesity 400+lbs. Upper Quad Tenderness. White count [id number]. EGS Dr[address] Akhil stone. Accepts pt REQ 10A. Electronically signed by Jayant mart 02/06/2014 9:16 PM [facility] moraes - 02/06/2014 8:[address] Renee Landaverde EGJacy. documente d in this encounter Plan of Treatment +--------+---------+ + + + | Date | Type | Specialty | Care Team | Description | +--------+---------+ + + + | 06/08/ | Office | Plastic Surgery | Antoinette Hale, | | | 2019 | Visit | | [address] | | | | | | [address] | | | | | | [place], [place] | | | | | | [address] | | | | | | [phone] | | | | | | | [...] [place] | [address] | [place], [place] | | | JUSTINE DAWN OF CARE | [address] | [address] | | | TESTS | | | [...] [place] | [address] | [place], [place] | | | JUSTINE DAWN OF JAKY | [address] | [address] | | | TESTS | | | [...] AM[place] | [address] | [place], [place] | | | L[place]PEZ POINT OF CARE | [address] | [address] | | | TESTS | | | [...] [facility] | [address] | [place], [place] | | | HILL, POINT OF CARE | [address] | [address] | | | TESTS | | | [...] [facility] | [address] | [place] [address] | | | SERVICES, | [address] [...] [facility] | [address] | [place] [address] | | | SERVICES, | [address] [...] NKECHI AMES | [address] | [place], [place] | | | [place] E[place] OF [facility] | [facility] | [address] | | | TESTS | | | [...] [facility] | [address] | [place] [address] | | | SERVICES, CORE | [address] [...] | + + + + + | [facility] | [address] | [place] [address] | | | SERVICES, CORE | [address] [...] | + + + + + | [facility] | [address] | [place] [address] | | | SERVICES, CORE | PARK [...] [facility] | [address] | [place] [address] | | | SERVICES, CORE | PARK [...] ANION GAP | 10 | mmol/L | [facility] | | | | | | LABORATORY [...] | [facility] 1006.tv | [address] | [place] [address] | | | SERVICES, LYDIA | [address]ES[address] [...] + + + + | [facility] | [address] [facility] [address] | [place], [place] | | | L[place]PEZ POINT OF CARE | [address] | [address] | | | TESTS | | | [...] pattern. | | | | | | Assistant Credit Manager | | | | | | [...] M.D. | | | | | | Ph.DReneePathologistElectron | | | | | | lenore [...] | [facility] | [address] | [place] [address] | | | PATHOLOGY | [address] | | | + [...]
--- OUTSIDE RECORDS SUMMARY | ~2020-04-17 | XMS | Encounter Summary ---
Demographics + + + | Address | [address] | | | [place] [address] | + + + | Home Phone [...] [place], [place] | | | | | [address] | | + + + + + | Ellie Vang | ECON | Unknown | | + + + + + Care Team Providers + +------+ + | Care Customer Engagement Manager Name | Role | Phone | [...] 03/03/ | Documentati | [facility]I [facility]UST at [facility] | Lab, Gi Procedure | Medical Records | | 2019 | on | [facility] [address] | | Review | | | | [facility] | | | | | | Health and Healing, | | | | | | [address] | | | | | | [place], [place] | | | | | | [address] | | | | | | [phone] | | | +--------+ + + + [...] 1 to 2 weeks Any Provider Location: [facility] 2 Type of Sedation: Moderate Will confirm above is cleared with MD given all providers vrs Bariatric Electronically sign ed by Sheree Basilio MA at 03/18/2019 11:09 AM PDTTelephone Encounter - Ariella Sr - 03/03/2019 3:13 PM PDT Elzbieta Cristina [id number] REFERRAL FOR REVIEW: Reviewing Provider: Sheree Basilio [...] 1 to 2 weeks Any Provider Location: [facility] 2 Type of Sedation: Moderate [] emergent [...] daily. BELBUCA 600 mcg buccal film CALCIUM CRB&MVT-C8-BNK13-GENIS ORAL Take 2 tablets by mouth two [...] cm or less 8 [facility] Lab Results Component Value Date WBC [...] | | 2019 | Visit | | [address] | | | | | | [address] | | | | | | [place], [place] | | | | | | [address] | | | | | | [phone] | | | | | | | | +--------+---------+ + + + documented as of this encounter Visit Diagnoses Not on filedocumented in this encounter"
--- OUTSIDE RECORDS SUMMARY | ~2020-04-17 | XMS | Encounter Summary ---
Demographics + + + | Address | [address] | | | [place] [address] | + + + | Home Phone [...] | Organization | [facility] [...] Providers + +------+ + | Care News Library Director Name | Role | Phone | [...] Closed | | Audiology | Diagnoses | [place], | [place], | | | | | [...] | | | | audiogram | [place] [address] | [place], [place] | | | | | Procedures | Phone: | [address] Phone: | | | | | OFFICE VISIT | [phone] | [phone] | | | | | REGULAR | Fax: | Fax: | | | | | | [phone] | [phone] | +--------+--------+ + + + + Encounter [...] | | [address] | [place] [address] | Pressure sensation | | | | [address] [place] | [phone] | in both ears | | | | [place] [address] | | | | | | [phone] | | | +--------+---------+ + + + [...] D | | | | | | [place] [address] | | | | | | [phone] | | | | | | | [...]
--- OUTSIDE RECORDS SUMMARY | ~2020-04-17 | XMS | Encounter Summary ---
Demographics + + + | Address | [address] | | | [place] [address] | + + + | Home Phone [...] Organization | [facility] [...] Providers + +------+ + | Care Furnace Clerk Name | Role | Phone | + +------+ + | Jorje Hill | PCP | | + +------+ + Reason for Visit +--------+--------+ + | Reason | Onset | Comments | | | Date | | +--------+--------+ + | Other | 02/14/ | Documentation | | | 2020 | | +--------+--------+ + Encounter Details +--------+ + + + + | Date | Type | Department | Care Team | Description | +--------+ + + + + | 02/14/ | Telephone | [facility] | Gee, | Other | | 2020 | | NEUROLOGY [address] | (Documentation) | | | | [address] | | | | | | [place] | | | | | | [address] | | | | | | [phone] | | | +--------+ + + + [...] Telephone Encounter - Varsha Gee CMA - 02/15/2020 10:39 AM PDTDodamon in other encounter. Dot han in this encounter Plan of [...] Swain | | | | | | [place] [address] | | | | | | [phone] | | | | | | | | +--------+ + + + + documented as of this encounter Visit Diagnoses Not on filedocumented in this encounter"
--- OUTSIDE RECORDS SUMMARY | ~2020-04-17 | XMS | Encounter Summary ---
Demographics + + + | Address | [address] | | | [place] [address] | + + + | Home Phone [...] [place], [place] | | | | | [address] | | + + + + + | Ellie Vang | ECON | Unknown | | + + + + + Care Team Providers + +------+ + | Care Information Technology Assistant Name | Role | Phone | [...] | [address] | MD Jodie,PhD [address] | | | | | [facility] | [address] | | | | | Hospital Admitting | [place], [place] | | | | | Desk Located on the | [address] | | | | | 9th floor | [phone] | | | | | [place], [place] | | | | | | [address] | Jason Balbuena | | | | | | MD Twin [address] | | | | | | [address] | | | | | | [place], [place] | | | | | | [address] | | | | | | [phone] | | | | | | | [...] be different from the original. Elzbieta Cristina [id number] Allergies Allergen Reactions Amoxicillin Benadrilina [Diphenhydramine Hcl] Hives Parlodel [Bromocriptine] Unknown Blood clots Penicillin Hives Past Surgical History Procedure Laterality Date Tonsillectomy and adenoidectomy Appendectomy, open 2010 Umbilical hernia repair 2010 Treatment of ankle fracture with screws remaining Incision and drainage of wound abscess x2 midline transverse wound s/p open appendectomy 2010 Ventral hernia repair 10/2012 Dr. Adnie Brian Incisional hernia repair 03/01/2015 [facility] [...] be different from the original. Elzbieta Cristina [id number] Allergies Allergen Reactions Amoxicillin Benadrilina [Diphenhydramine Hcl] [...] by mouth two times daily. 11/20/2017 CALCIUM CRB&HKA-N0-BWU03-GENIS ORAL Take 2 tablets by mouth two [...] Date RATE 110 02/22/2018 ATRIALRATE 110 02/22/2018 W[place] 170 02/22/2018 QRS 98 02/22/2018 QT 339 [...] in t his encounter Plan of Treatment +--------+---------+ + + + | Date | Type | Specialty | Care Team | Description | +--------+---------+ + + + | 06/08/ | Office | Plastic Surgery | Antoinette Hale, | | | 2019 | Visit | | [address] [facility] | | | | | | [address] | | | | | | [place], [place] | | | | | | [address] | | | | | | [phone] | | | | | | | [...] 9:18 | | | | | Starting 03/01/18 at 0918, | | AM PDT | [...]
--- OUTSIDE RECORDS SUMMARY | ~2020-04-17 | XMS | Encounter Summary ---
Demographics + + + | Address | [address] | | | [place] [address] | + + + | Home Phone [...] | + + + + + | Ktaalina Padilla | ECON | [address] | | | | | [place], [place] | | | | | [address] | | + + + + + | Ellie Vang | ECON | Unknown | | + + + + + Care Team Providers + +------+ + | Care Cutting Table Operator First Name | Role | Phone | + [...] | | | Unspecified | Kathy Feliciano GAS WORKER | MD Randell | | | | | essential | [address] | [address] | | | | | hypertension | [address] | Ave | | | | | Type II or | [address] | [place], [place] | | | | | unspecified | [place], [place] | [address] | | | | | type | [address] | Phone: | | | | | diabetes | Phone: | [phone] | | | | | mellitus | [phone] | Fax: | | | | | without | Fax: | [phone] | | | | | mention of | [phone] | | | | | | complication [...] | 2015 | Visit | Preventive at [facility] | MD [address] | mellitus (HCC) | | | | [address] | [facility] [place] | (Primary Dx) | | | | [facility] | [address] | | | | | and Healing, | [phone] | | | | | [address] | | | | | | [place], [place] | | | | | | [address] | | | | | | [phone] | | | +--------+---------+ + + + [...] | | 2019 | Visit | | [address] | | | | | | [address] | | | | | | [place], [place] | | | | | | [address] | | | | | | [phone] | | | | | | | [...] [facility] | [address] | [place] [address] | | | SERVICES, CORE | PARK [...] [facility] | [address] | [place] [address] | | | SERVICES, SPECIAL | PARK [...]
--- OUTSIDE RECORDS SUMMARY | ~2020-04-17 | XMS | Encounter Summary ---
Demographics + + + | Address | [address] | | | [place] [address] | + + + | Home Phone [...] [place], [place] | | | | | [address] | | + + + + + | Ellie Vang | ECON | Unknown | | + + + + + Care Team Providers + +------+ + | Care Railroad Track Mechanic Name | Role | Phone | [...] Rd | | | | | | [place], [place] | | | | | | [address] | | | | | | [phone] | | | | | | | | +--------+---------+ + + + documented as of this encounter Visit Diagnoses Not on filedocumented in this encounter"
--- OUTSIDE RECORDS SUMMARY | ~2020-04-17 | XMS | Encounter Summary ---
Demographics + + + | Address | [address] | | | [place] [address] | + + + | Home Phone [...] + | Katalina Padilla | ECON | [address] | | | | | [place], [place] | | | | | [address] | | + + + + + | Ellie Vang | ECON | Unknown | | + + + + + Care Team Providers + +------+ + | Care Invoice Checker Name | Role | Phone | [...] 2018 | Visit | Center at [facility] [address] | ACNP [address] | gastric bypass | | | | [address] | [address] [place], [place] | (Primary Dx); | | | | for Health and | [address] | Ventral hernia | | | | Healing, [address] | [phone] | without obstruction | | | | [facility] [place] | | or gangrene; Mixed | | | | [address] | | hyperlipidemia; | | | | [phone] | | Diabetes mellitus | | | [...] this encounter Patient Instructions Patient Instructions Ronna Clarek ACNP - 03/10/2018 3:05 PM PDTAssessment/Plan: 1. S/P Frandy en y gastric bypass, Doing well at 9 days post op except for pain around abdomi nal incision-wound culture and she will call us tomorrow to tell us how she is doing Refill oxycodone Rx +Take acid cage operator for first 3 mos, then wean off [...] to POC and will call or send [facility] if any issues. documented in this encounter [...] times daily. , Disp: , Rfl: CALCIUM CRB&OCR-J7-QLA19-GENIS ORAL, Take 2 tablets by mouth two [...] History Narrative Updated 11/09/15 She lives in [place] with her mother and her sister (also her caregiver) lives in an apa rtment/duplex below. She has 2 grandchildren (age 4 and 7) who live with her daughter and son-in-law Her boyfriend lives in [place] HFpEF, DM2, HTN, Sleep Apnea (unable to [...] here and refer her to our employment specialist who also has expertise in physical [...] Increase torsemide to pre-surgical dose +Take acid cage operator for first 3 mos, then wean off [...] she will make an appointment with her Thermoforming Operator to discuss insulin dosing and CBGs [...] after this visit. Ronna Clarke DNP ACNP DRY CLIPPER TENDER Bariatric Surgery Nurse Practitioner [facility] | [address] | [place], [place] | [address] | documented in this e ncounter Plan [...] Rd | | | | | | [place], [place] | | | | | | [address] | | | | | | [phone] | | | | | | | [...] + | [facility] | [address] | [place] [address] | | | [place] | | | | + + + [...]
--- OUTSIDE RECORDS SUMMARY | ~2020-04-17 | XMS | Encounter Summary ---
Demographics + + + | Address | [address] | | | [place] [address] | + + + | Home Phone [...] [place], [place] | | | | | [address] | | + + + + + | Ellie Vang | ECON | Unknown | | + + + + + Care Team Providers + +------+ + | Care Grab Jack Man Name | Role | Phone | [...] + + | 06/23/ | Hospital | [facility] [address] | Kaleb Wilcox MD | | | 2017 | Encounter | [address] | [address] | | | | | [address] | [place], [place] | | | | | [place], | [address] | | | | | [place] [address] | [phone] | | | | | [phone] | | | +--------+ + + + [...] or on weekends and holiday Hospital Director Of Product Design toll free [phone] ext. 2007or and have the GI doctor crisis intervention counselor paged. The provider who performed your procedure [...] | | 0 | | | | CRB&JGT-J7-AVG21-GEN | mouth two times | | | [...] 2:35 PM PST PRE PROCEDURE NOTE: MR# [id number] Subjective: Elzbieta Cristina is a 43 y.o. [...] | | 2019 | Visit | | [address] | | | | | | [address] | | | | | | [place], [place] | | | | | | [address] | | | | | | [phone] | | | | | | | [...] -----+ | MRN: | [facility] | | [id number] Date: 06/23/2018Patient Name: Elzbieta Curtis #: | ENDOSCOP Y | | [id number] of : 1975CSN: [id number] Type: | | | AmbulatoryRoom: SORProcedure: Upper GI | | | endoscopyIndications: Nausea with vomiting, Status post | | | Smkd-rn-HZtfpmzyhl: KALEB WILCOX MD (Doctor), JOSE | | | NASIMA, Physics Professor | | | (Physics Professor)Referring MD: DANIELLE GARCÍAPRequestdonya | | | Provider: [...] | | | The Olympus [id number]-[id number] Gastroscope #[id number] was | | | introduced through the [...] endoscope without resistance. The | | | ajiht-qd-oeekood limb was characterized by healthy appearing | [...] NKECHI AMES | [address] | [place], [place] | | | [place] [facility] | [address] | [address] | | | TESTS | | | [...] intravenous, POSTPROCEDURE PRN, | | | Starting 06/23/18 at 1532, | | | Until [facility] 06/24/18 at 0027, | | | hypopnea | | + +---+ | | | + +---+ | ondansetron (ZOFRAN) injection | | | 4 mg 4 mg, intravenous, | | | POSTPROCEDURE PRN, 1 dose, | | | Starting [facility] 06/23/18 at 1532, | | | Until [facility] 06/24/18 at 0027, | | | nausea/vomiting [...] | | | PRN, 1 dose, Starting [facility] | | | | | [...]
--- OUTSIDE RECORDS SUMMARY | ~2020-04-17 | XMS | Encounter Summary ---
Demographics + + + | Address | [address] | | | [place] [address] | + + + | Home Phone [...] [place], [place] | | | | | [address] | | + + + + + | Ellie Vang | ECON | Unknown | | + + + + + Care Team Providers + +------+ + | Care Ore Miner Blasting Name | Role | Phone | + [...] | Committee | Digestive Health | Raymond Gilmna, | Committee Review | | 2014 | Review | Center at [facility] [address] | MD | Decision | | | | [facility] | | | | | | [facility] Health and | | | | | | [facility] [place] [address] | | | | | | [place], [place] | | | | | | [address] | | | | | | [phone] | | | +--------+ + + + [...] Rd | | | | | | [place] | | | | | | [address] | | | | | | [phone] | | | | | | | | +--------+---------+ + + + documented as of this encounter Visit Diagnoses Not on filedocumented in this encounter"
--- OUTSIDE RECORDS SUMMARY | ~2020-04-17 | XMS | Encounter Summary ---
Demographics + + + | Address | [address] | | | [place] [address] | + + + | Home Phone [...] + | Katalina Padilla | ECON | [address] | | | | | [place], [place] | | | | | [address] | | + + + + + | Ellie Vang | ECON | Unknown | | + + + + + Care Team Providers + +------+ + | Care Sandwich Machine Operator Name | Role | Phone | + +------+ + | Fadi Goodrich DO | PCP | | + +------+ + Encounter Details +--------+------+ + + + | Date | Type | Department | Care Team | Description | +--------+------+ + + + | 06/16/ | Lab | Laboratory at [facility] | | Morbid obesity with | | 2012 | | [address] | | BMI of 70 and over, | | | | Center for [facility] | | adult (HCC); Vitamin | | | | and Healing, | | D deficiency | | | | [address] | | disease; | | | | [place], [place] | | Intertriginous | | | | [address] | | candidiasis; | | | | [phone] | | Diabetes mellitus | | | [...] | | | | | | obesity ([facility]); PCOS | | | | | | [...] | | 2020 | Visit | | [address] | | | | | | [address] | | | | | | [place], [place] | | | | | | [address] | | | | | | [phone] | | | | | | | [...] | | | PST | over, adult ([facility]) | results section. | | | | | Vitamin D deficiency | | | | | | disease | | | | | | Intertriginous | | | | | | candidiasis | | | | | | Diabetes mellitus | | | | | | ([facility]) HTN | | | | | | [...] at | | | | | | [email or web address] Test | | | | | | developed and | | | | | | characteristics | | | | | | determined by | | | | | | [facility]. See | | | | | | Compliance Statement B: | | | | | | [email or web address]/CSPerformed | | | | | | by [employer],[address] | | | | | | [place], [place] | | | | | | [address] | | | | | | [phone]. | | | | | | [facility], | | | | | | , Lab. Director | | | | + + + + + + | H.PYLORI | 1.0Comment: INTERPRETIVE | <=1.7 EV | [facility] | | | [facility] | INFORMATION: [...] at | | | | | | [employer] Test | | | | | | developed and | | | | | | characteristics | | | | | | determined by | | | | | | [facility]. See | | | | | | Compliance Statement B: | | | | | | [employer]/CS | | | | + + + + + + + + | Specimen | + + | Blood - Blood | + + + + + + + | Performing | Address | City/State/Zipcode | Phone Number | | Organization | | | | + + + + + | [facility] | [address] | [place], [place] | | | [facility] | | [address] | | + + + + + [...]
--- OUTSIDE RECORDS SUMMARY | ~2020-04-17 | XMS | Encounter Summary ---
Demographics + + + | Address | [address] | | | [place] [address] | + + + | Home Phone [...] [place], [place] | | | | | [address] | | + + + + + | Ellie Vang | ECON | Unknown | | + + + + + Care Team Providers + +------+ + | Care School Treasurer Name | Role | Phone | + +------+ + PCP | Unavailable | + +------+ + Encounter Details +--------+ + + + + | Date | Type | Department | Care Team | Description | +--------+ + + + + | 05/13/ | Results | | Other, Faculty | | | 1992 | Only | | [phone] | | +--------+ + + + + [...] | | 2019 | Visit | | [address] | | | | | | [address] | | | | | | [place], [place] | | | | | | [address] | | | | | | [phone] | | | | | | | [...] | | + +---------+ + + | [facility] DEPARTMENT OF | | [...] | | | | | | | [phone] SCAN OF | | | | | [...] | | + +---------+ + + | [facility] DEPARTMENT OF | | | | | RADIOLOGY | | | | + +---------+ + + documented in this encounter Visit Diagnoses Not on filedocumented in this encounter"
--- OUTSIDE RECORDS SUMMARY | ~2020-04-17 | XMS | Encounter Summary ---
Demographics + + + | Address | [address] | | | [place] [address] | + + + | Home Phone [...] + + | Author | [facility] | | | and Jeffana | + + + | Organization | [facility] | | [...] Team Providers + +------+ + | Care Engraver Apprentice Decorative Name | Role | Phone | + +------+ + PCP | Unavailable | + +------+ + Encounter Details +--------+ + + + + | Date | Type | Department | Care Team | Description | +--------+ + + + + | 11/20/ | Orders Only | [facility] | Conversion | | | 2016 | | NEPHROLOGY [place] | Transaction, | | | | | [address] | Provider Unknown | | | | | [address] [place], [place] | | | | | | [address] | (Fax) | | | | | [phone] | | | +--------+ + + + [...] | | | | | [place] [address] | | | | | | [phone] | | | | | | | [...]
--- OUTSIDE RECORDS SUMMARY | ~2020-04-17 | XMS | Encounter Summary ---
Demographics + + + | Address | [address] | | | [place] [address] | + + + | Home Phone [...] [place], [place] | | | | | [address] | | + + + + + | Ellie Vang | ECON | Unknown | | + + + + + Care Team Providers + +------+ + | Care Vertical Mill Operator Name | Role | Phone [...] 2014 | | [address] | [address] | REPAIR | | | | [facility] | [address] | | | | | Hospital Admitting | [place], [place] | | | | | Des Located on the | [address] | | | | | 9th floor | [phone] | | | | | [place], [place] | | | | | | [address] | | | +--------+---------+ + + + [...] mouth once daily. , Historical Med CALCIUM CRB&KLL-I5-QBD84-GENIS ORAL Take 1 tablet by mouth two [...] 10:40 AM Randell Franks Cardiology Preventive at [facility] [phone] Cardiology 04/09/2015 1:00 PM Egs Ppv Tra Trauma Emergency General Surgery at [facility] [phone] TRAUMA CENT Outstanding labs/studies: None Discharging Physician: GABO LANGSTON MD Attending Physician: Dr. Cantu PCP: Fadi Goodrich DO Signed: GABO LANGSTON MD Pager #[phone] Surgical Actuarial Science Teacher [facility] Associated attestation - Tye Carrillo DO - 03/12/2015 9:12 AM PDTAttending: I discussed this patient with the resident and agree with the assessment and plan as outlin ed in this note and participated in the planning of care. Tye Carrillo DO, SIDRA, FACS Division of Trauma, Critical Care & Acute Care Surgery [facility] [phone] documented in this encounter Medications at Time of Discharge + + + +---------+--------+ + | Medication | Sig | Dispensed | Refills | Start | End Date | | | | | | Date | | + + + +---------+--------+ + | CALCIUM | Take 2 tablets by | | 0 | | | | CRB&XRB-K8-QSK23-GEN | mouth two times | | | [...] [facility] [place] DEPARTMENT OF SURGERY EMERGENCY GENERAL SURGERY Division [...] Plan: D/c today GABO LANGSTON MD Pager #[phone] Surgical Actuarial Science Teacher [facility] pSalomón campa Md R - 03/02/2015 1:[address] [facility] DEPARTMENT OF SURGERY EMERGENCY GENERAL SURGERY [...] alert, and oriented x 3 LUNGS: anterior coely CTA bilaterally CV: RRR ABDOMEN: obese, non [...] will be robel ing her home to [place], [place]. CALVIN ROMERO MD PGY-1 Anesthesiology Pager: [phone] [facility] A [address] [facility] [address] Marleny Oneill MD - 03/02/2015 8:26 AM [id number] Calvin William Md - 03/01/2015 5:34 PM [...] control CALVIN ROMERO MD PGY-1 Anesthesiology Pager: [phone] signed by Calvin Romero Md at 03/01/2015 5:41 PM PDTdocumente d in this encounter H&P Notes Jostin Brunner MD - 2015 8:12 PM PDTFormatting of this note might be differen t from the original. Emergency General Surgery - Admission Note Patient: Dylan Romero ([id number]) Author: Jostin Brunner MD Attending: Dagoberto Colón MD Date: 2015 Reason for Admission: Abdominal pain HPI: Dylan Romero is a 40 y.o. female with morbid obesity (BMI 71 today), DM2, depressi on, GERD, h/o stroke at age 18, and known ventral hernias who is transferred to [facility] from [facility] in [place], [place] with 3 days of abdominal pain, [...] 2013. All surgeries have been performed at [facility]. She has known hernia recurrence in her ventral midline and umbilicus. She is parti cipating in the [facility] Bariatrics program and has lost 100 lbs [...] Socal History: Lives with her mother in [place], [place] Former smoker Denies alcohol, current smoking, and illicits Prior to Admission Medications Prescriptions ALPRAZolam 1 mg oral tablet Sig: Take 1 mg by mouth three times daily as needed for anxiety. CALCIUM CRB&EVR-K4-WRP25-GENIS ORAL Sig: Take 1 tablet by mouth [...] NPO Jostin Brunner MD R3 EGS Pager: [phone] documented in this e ncounter Procedure Notes Shahid Cantu MD - 03/02/2015 9:15 AM PDTAssociated Order(s): OPERATION RECORDDate of S ervice: 03/01/2015 Attending Surgeon: Shahid Cantu MD Meat Sales And Storage Manager(s): Howie Angeles MD, R5 Marleny Galvan MD, [...] diabetes and morbid obesity with a B SC of 71, and known ventral hernia from [...] the entire procedur e. Shahid Cantu MD Manager Property Trauma, Critical Care & Acute Care Surgery Shahid Cantu MD TBK/MODL /[id number] signed by Shahid Cantu MD at 03/05/2015 [...] Initial surgical contact: Juma Galvan at pager [phone] Associated attestation - Shahid Cantu MD - 03/02/2015 8:24 AM PDTA full operative note will be dictated by Dr. Marleny Galvan, the resident surgeon. Pursuant to federal Medicare and Medicaid regulations I was present for the entire procedur e including the critical portions. Shahid Cantu MD Manager Property Trauma, Critical Care & Acute Care Surgery documented in this encounter Miscellaneous Notes Handoff - Jj Arizmendi RN - 03/03/2015 10:35 AM PDTNursing Handoff Patient Daily Goal: Pain will be under control (03/03/1514) [facility] IP NURSE HANDOFF: Jiang hospital course events: [...] Goal: Pain will be under control (03/03/1514) [facility] IP NURSE HANDOFF: COMFORT/ANXIETY/BEHAVIOR Patient Target: Patient pain level will be under control As evidenced by: Dylan wanted her 10mg of oxycodone every three hours overnight to keep her pain controlle d. She had asked to be woken up during the night when the medication was due to be given. NH N ibuprogen and tylenol was also offered in conjunction with oxycodone. NURSING ASSESSMENT & RECOMMENDATIONS FORWARD Nursing Assessment of Patient Stability Risk: Moderately stable Recommendations Forward: Continue to offer 10mg oxycodone Q 3 hrs alternating with tylenol and ibuprofen. Offer non-pharmacologic pain relief interventions in addition to pharmacologi c. andoff - Branden Hoyt RN - 03/02/2015 3:[address] [facility] IP NURSE HANDOFF: Jiang hospital course events: [...] notes for their discharge recommendations. Please page telephonic case manager if any CM arranged service needs arise. Patient states sister coming to [facility] [place] [id number] Mariah Chen RN - 03/02/2015 3:[address] [facility] IP NURSE HANDOFF: Jiang hospital course events: [...] Additional pain medication information: Functional Epidural: No YARROW GATHERER: No Respiratory: RR: 20, O2 Sat: 96 %, O2 Delivery: Nasal cannula Breath Sounds: WDL Except ALFRED: clear;diminished LLL: clear;diminished RUL: clear;diminished RLL: clear;diminished AMARA No Comment: risk for AMARA due to obesity Cardiac: BP: 116/61 mmHg HR: 79 GI: Nausea/Vomiting Status: No Signs/Symptoms: Interventions: Assessment: Comments: no ponv : Last void: Ruiz Contact Name: Mom: Katalina Padilla Contact Number: [phone] Family contacted: Yes Comment: Will contact prior [...] of 4-5 in the abdomen r egion. [facility] Galina Burton - 2015 6:15 PM PDTKishan [...] Gann. Transport TBD, pt on [facility] at [facility]. documented in this encounte r Plan of Treatment +--------+---------+ + + + | Date | Type | Specialty | Care Team | Description | +--------+---------+ + + + | 06/08/ | Office | Plastic Surgery | Antoinette Hale, | | | 2019 | Visit | | [address] | | | | | | [address] | | | | | | [place], [place] | | | | | | [address] | | | | | | [phone] | | | | | | | [...] | | Attending Surgeon: Shahid Cantu MD Meat Sales And Storage Manager(s): Howie Angeles MD, R5 | | Marleny [...] 03/02/2015 08:25:39DT: 03/02/2015 09:15:57Job #: | | [id number] | | | |Dr. Chris Cantu was present and scrubbed for the entirety of the case. | | | | | | | |Marleny Galvan MD | | | |Pursuant to federal Medicare and Medicaid regulations I was present for the entire procedur e. | | | | | | | |Shahid Cantu MD | |Manager Property | |Trauma, Critical Care & Acute Care Surgery | | | | | | | |Shahid Cantu MD | |TBK/MODL | | | | | | /[id number] | + ---+ CAPILLARY BLOOD GLUCOSE (NO [...] [place] | [address] | [place], [place] | | | JUST[place]WN OF CARE | [facility] | [address] | | | TESTS | | | [...] [place] | [address] | [place], [place] | | | [place] POINT OF CARE | [address] | [address] | | | TESTS | | | [...] [place] | [address] | [place], [place] | | | JUST[place] OF JAKY | [facility] | [address] | | | TESTS | | | | + + + + + CAPILLARY BLOOD GLUCOSE (NO CHG) POC (03/02/2015 6:54 PM PDT) + +---------+ [...] [place] | [address] | [place], [place] | | | [facility] OF CARE | [facility] | [address] | | | TESTS | | | [...] [place] | [address] | [place], [place] | | | [place] POINT OF CARE | [address] | [address] | | | TESTS | | | [...] AMES | [address] | [place], [place] | | | [place] OF JAKY | [facility] | [address] | | | TESTS | | | [...] [facility] | [address] | [place] [address] | | | SERVICES, CORE | CLARENCE [...] INSTITUTE LAB[facility] | [address] | [place] [address] | | | SERVICES, CORE | CLARENCE [...] AMES | [address] | [place], [place] | | | [place] POINT OF CARE | [address] | [address] | | | TESTS | | | [...] [place] | [address] | [place], [place] | | | JUST[place] DAWN OF CARE | [address] | [address] | | | TESTS | | | [...] [place] | [address] | [place], [place] | | | JUST[place]WN OF CARE | [address] | [address] | | | TESTS | | | [...] AMES | [address] | [place], [place] | | | [place] POINT OF CARE | [address] | [address] | | | TESTS | | | [...] [place] | [address] | [place], [place] | | | JUST[place] DAWN OF CARE | [address] | [address] | | | TESTS | | | [...] | + + + + + | [place] | [address] | [place] [address] | | | SERVICES, CORE | CLARENCE [...] [place] | [address] | [place], [place] | | | JUST[facility] DAWN OF CARE | [address] | [address] | | | TESTS | | | [...]
--- OUTSIDE RECORDS SUMMARY | ~2020-04-17 | XMS | Encounter Summary ---
Demographics + + + | Address | [address] | | | [place] [address] | + + + | Home Phone [...] Team Providers + +------+ + | Care Insolvency Practitioner Name | Role | Phone | + +------+ + | Jorje Hill | PCP | | + +------+ + Encounter Details +--------+ + + + + | Date | Type | Department | Care Team | Description | +--------+ + + + + | 01/05/ | Orders Only | [facility] | Augustine Fu MD | | | 2020 | | NEPHROLOGY [place] | [address] | | | | | [address] | [address] [place], [place] | | | | | [address] [place], [place] | [address] | | | | | [address] | | | | | | [phone] | | | +--------+ + + + [...] | | | | | [place] [address] | | | | | | [phone] | | | | | | | | +--------+ + + + + documented as of this encounter Visit Diagnoses Not on filedocumented in this encounter"
--- OUTSIDE RECORDS SUMMARY | ~2020-04-17 | XMS | Encounter Summary ---
Demographics + + + | Address | [address] | | | [place] [address] | + + + | Home Phone [...] [place], [place] | | | | | [address] | | + + + + + | Ellie Vang | ECON | Unknown | | + + + + + Care Team Providers + +------+ + | Care Jewelry Internship Name | Role | Phone | + +------+ + | Fadi Goodrich DO | PCP | | + +------+ + Encounter Details +--------+ + + + + | Date | Type | Department | Care Team | Description | +--------+ + + + + | 10/27/ | Abstract | Digestive Health | Clinic, Surgery | | | 2018 | | [facility] [address] | | | | | | [address] [facility] | | | | | | for Health and | | | | | | [facility] [address] | | | | | | [place], [place] | | | | | | [address] | | | | | | [phone] | | | +--------+ + + + [...] | | 2019 | Visit | | [address] | | | | | | [address] | | | | | | [place], [place] | | | | | | [address] | | | | | | [phone] | | | | | | | | +--------+---------+ + + + documented as of this encounter Visit Diagnoses Not on filedocumented in this encounter"
--- OUTSIDE RECORDS SUMMARY | ~2020-04-17 | XMS | Encounter Summary ---
Demographics + + + | Address | [address] | | | [place] [address] | + + + | Home Phone [...] Team Providers + +------+ + | Care Grocery Department Manager Name | Role | Phone [...] | Services | Disease | Chronic | [facility] | | | Required | | diastolic | [address] | SLEEP | | | | | heart | [address] | DISORDERS LAB | | | | | failure | [address] | [address] | | | | | (HCC) | [place] | [address] | | | | | History of | [address] | [place], [place] | | | | | sinus | Phone: | [phone] | | | | | tachycardia | [phone] | Phone: | | | | | History of | Fax: | [phone] | | | | | bariatric | [phone] | Fax: | | | | | surgery | | [phone] | | | | | Sleep apnea [...] + + | 04/28/ | Office | [facility] | Sulema Altamirano | Chronic diastolic | | 2019 | Visit | CARDIOLOGY [place] | [address] | heart failure (HCC) | | | | [address] | [address] | (Primary Dx); | | | | [address] | [place] [address] | History of sinus | | | | [place], [place] | [phone] | tachycardia; History | | | | [address] | | of stroke; HTN, | | | | [phone] | | goal below 130/80; | | [...] have referred you to Dr. Rascon at [place] [facility] , call [phone] for an appointment next week I made [...] and hyperuricemia which is being followed by concrete bucket hooker Dr. Fu, and SELINA Escobar. Her current [...] will be seeing a surgeon seven t [facility] on May 05. In the meantime [...] today that she never heard from the [place] [facility] providers to her sup posed [...] surgery, and weight down 123 pounds since [facility] 2017 when weighed 394 lbs. She brought [...] her mother who smokes. . Sister is group care worker. Grandchildren ages 4 and 7 live with he r daughter and son-in-law. Disabled , on disability .01/24/2019: working with [employer] to get her own place. Outpatient Medications [...] film Suboxone 2 mg-0.5 mg sublingual film Dypkzze-Sweksoscu-Wgjqthp D (CITRACAL CALCIUM+D PO) Take 2 tablets [...] Pen Needle (NOVOFINE) 32G X 6 MM [facility] Novofine 32 32 gauge x 1/4" needle [...] monohydrate/macrocrystals 100 m g capsule nystatin (NYSTATIN) 968041 UNIT/GM powder Nyamyc 100,000 unit/gram topical powder [...] Take 30 mg by mouth Daily. thyroid (INDUSTRIAL ENERGY ENGINEER THYROID) 30 mg tablet INDUSTRIAL ENERGY ENGINEER Thyroid 30 mg tablet TAKE ONE TABLET [...] , and aortic arch normal Echo: 01/02/2016 ([facility]): TDS, cardiac chamber dimensions grossly [...] No evidence of DVT. EKG EKG 10/27: ([facility]) Normal sinus rhythm. Normal EKG. Rate 93 bpm, CA 172 ms, QRS 90 ms, QTC 465 ms personally reviewed by me in the office today) EK02/05: Sinus tachycardia, otherwise normal. Rate 160 bpm, CA 174 ms, QRS 74 ms, QTC 451 ms (personally reviewed by me in the office today and no significant change seen fro m EKG done in October 2016 except for faster heart rate) EK04/26/2018: Normal sinus rhythm, rate 74 bpm, CA 182 ms, QRS 96 ms, QTC 472 ms, tracin g personally reviewed by me, and compared to previous EKG, heart rate is now better controll ed, otherwise similar morphology EK04/28/2019: Normal sinus rhythm, right axis. Rate 74 bpm, CA 170 ms, QRS 88 ms, QTC 45 [...] heard from the sleep providers at the [place] [facility] in [place], so I have referred her again to Dr. Rascon at the [place] [facility], and she ne eds [...] Placed This Encounter Procedures Ambulatory Referral to [facility] Pulmonology- Sleep study as well ECG [...] past surgical history. Problem list. Maryse MARKS [facility] 04/28/2019 Nicole soler in this encounter [...] D | | | | | | [place] [address] | | | | | | [phone] | | | | | | | | +--------+ + + + + + + +--------+ + + | Name | Type | Priori | Associated Diagnoses | Order Schedule | | | | ty | | | + + +--------+ + + | Ambulatory Referral | Outpatient | Routin | Chronic diastolic | Ordered: 04/28/2019 | | to [facility] | Referral | e | heart [...] | | use of insulin ([facility]) | | + + +--------+ + + [...] | | | | | by [facility] [place] Read Only, | | | | | | [facility] ([id number]), | | | | | | managing editor Glen Alberto | | | | [...]
--- OUTSIDE RECORDS SUMMARY | ~2020-04-17 | XMS | Encounter Summary ---
Demographics + + + | Address | [address] | | | [place] [address] | + + + | Home Phone [...] + | Katalina Paidlla | ECON | [address] | | | | | [place], [place] | | | | | [address] | | + + + + + | Ellie Vang | ECON | Unknown | | + + + + + Care Team Providers + +------+ + | Care Picker/Puller Name | Role | Phone | + [...] Visit | Medicine Clinic at | J, RESPIRATORY CARE PROGRAM DIRECTOR | (Primary Dx); | | | | [facility] | | Dysphagia, | | | | [address] | | unspecified type; | | | | [facility] | | Hypertension, | | | | and Healing, | | unspecified type; | | | | [address] | | Hyperlipidemia, | | | | [place], [place] | | unspecified | | | | [address] | | hyperlipidemia type; | | | | [phone] | | Diastolic | | | | [...] insulin | | | | | | ([facility]) | +--------+---------+ + + + Anesthesia [...] | | Endotracheal Tube; 7; Oral; | SUPERVISOR CUTTING AND BONING | SUPERVISOR CUTTING AND BONING | | | Cuffed; 06/23/18; 1542 | [...] Tiara Mckeon FNP - 06/16/2018 3:15 PM [facility] PREOPERATIVE INSTRUCTIONS Please consider having an [...] your procedure. Surgery check-in location: Admitting - [facility] Surgery Check in Time: The Preoperative [...] hours, call the [facility] explosive operator supervisor at [phone] and ask them to page him or [...] weight loss and diuretic tx, follows with trimmer machine operator Hypothyroidism stabilized on hormone replacement Type [...] renal failure no electrolyte abnormalities no dialysis Urology/Tent Worker: Urologic Conditions: nephrolithiasis Endo: Diabetes: type 2 [...] sublingual Place under tongue once daily. CALCIUM CRB&EZA-P0-YUK15-GENIS ORAL Take 2 tablets by mouth two [...] weight loss and diuretic tx, follows with trimmer machine operator. Appears comp ensated today. Hypothyroidism stabilized on hormone replacement. Take on DOS as usual Type 2 diabetes, well controlled with A1c 6.1 Thank you for the opportunity to contribute to this patient's care. HILDA Lagos [facility] PREOPERATIVE MEDICINE CLINIC AT [facility] 4TH FLOOR [address] [facility] [address] I advised the patient regarding [...] | | 2019 | Visit | | [address] | | | | | | [address] | | | | | | [place], [place] | | | | | | [address] | | | | | | [phone] | | | | | | | [...]
--- OUTSIDE RECORDS SUMMARY | ~2020-04-17 | XMS | Encounter Summary ---
Demographics + + + | Address | [address] | | | [place] [address] | + + + | Home Phone [...] Organization | [facility] [...] Providers + +------+ + | Care Director Alliance Marketing Name | Role | Phone | + +------+ + PCP | Unavailable | + +------+ + Encounter Details +--------+ + + + + | Date | Type | Department | Care Team | Description | +--------+ + + + + | 03/31/ | Orders Only | [facility] | Dharmesh Escobar, | | | 2016 | | NEPHROLOGY [place] | HOSPICE MANAGER [address] | | | | [address] | [address] | | | | | [address] [place], [place] | [place] | | | | | [address] | [address] | | | | | [phone] | [phone] | | | | | | | [...] D | | | | | | [place] [address] | | | | | | [phone] | | | | | | | [...] | LAB | | | [place] | | | | | + +---------+ [...]
--- OUTSIDE RECORDS SUMMARY | ~2020-04-17 | XMS | Encounter Summary ---
Demographics + + + | Address | [address] | | | [place] [address] | + + + | Home Phone [...] [place], [place] | | | | | [address] | | + + + + + | Ellie Vang | ECON | Unknown | | + + + + + Care Team Providers + +------+ + | Care Shellfish Bed Worker Name | Role | Phone | [...] [id number] | | | | | | [facility] | | | | | | [place], [place] | | | | | | [address] | | | | | | [phone] | | | +--------+ + + + [...] | | 2019 | Visit | | [address] | | | | | | [address] | | | | | | [place], [place] | | | | | | [address] | | | | | | [phone] | | | | | | | | +--------+---------+ + + + documented as of this encounter Visit Diagnoses Not on filedocumented in this encounter"
--- OUTSIDE RECORDS SUMMARY | ~2020-04-17 | XMS | Encounter Summary ---
Demographics + + + | Address | [address] | | | [place] [address] | + + + | Home Phone [...] [place], [place] | | | | | [address] | | + + + + + [...] ENDOSCOPY | | 2017 | | [facility] | [address] | | | | | Rd [facility] | [place], [place] | | | | | Hospital Admitting | [address] | | | | | Desk Located on the | [phone] | | | | | 9th floor | | | | | | [place], [place] | | | | | | [address] | | | +--------+---------+ + + + [...] Discharge Instructions Instructions Keerthi Bill, KELSIE - [facility]/2018[facility] Instructions after EGD (Upper Endo scopy) [...] hours or on weekends and holiday Hospital Investment Advisor toll free [phone]. [phone] and have the GI doctor technology applications engineer paged. The provider who performed your procedure [...] | | 0 | | | | CRB&NJC-C2-TEO69-GEN | mouth two times | | | [...] 2:35 PM PST PRE PROCEDURE NOTE: MR# [id number] Subjective: Elzbieta Cristina is a 43 y.o. [...] Rd | | | | | | [place], [place] | | | | | | [address] | | | | | | [phone] | | | | | | | [...] -----+ | MRN: | [facility] | | [id number] Date: 06/23/2018Patient Name: Elzbieta Curtis #: | ENDOSCOP Y | | [id number] of : 1975CSN: [id number] Type: | | | AmbulatoryRoom: SORProcedure: Upper GI | | | endoscopyIndications: Nausea with vomiting, Status post | | | Yzbi-sq-UOipcuwfhi: KALEB WILCOX MD (Doctor), JOSE | | | [place], Slat Basket Maker Helper Machine | | | (Slat Basket Maker Helper Machine)Referring MD: DANIELLE GARCÍAPRequestdonya | | | Provider: [...] | | | The Olympus [id number] Gastroscope #[id number] was | | | introduced through the [...] endoscope without resistance. The | | | bpddt-ho-yrafmsj limb was characterized by healthy appearing | [...] 3:58 [facility] Letter to: FADI GOODRICH, DO | [...] + + | Performing | Address | City/State/[facility] | Phone Number | | Organization [...] MARQUAM | | | | | | JUSITNE DAWN | | [...] + | NKECHI AMES | [address] | [place], [place] | | | JUSTINE DAWN OF [facility] | [address] | [address] | | | TESTS | | | [...] | | | | | | Until Thu06/24/18 at 0027, | | | | | [...] 06/23/18 at 1532, | | | Until [facility] 06/24/18 at 0027, | | | hypopnea | | + +---+ | | | + +---+ | ondansetron (ZOFRAN) injection | | | 4 mg 4 mg, intravenous, | | | POSTPROCEDURE PRN, 1 dose, | | | Starting [facility] 06/23/18 at 1532, | | | Until [facility] 06/24/18 at 0027, | | [...] | | | PRN, 1 dose, Starting [facility] | | | | | [...]
--- OUTSIDE RECORDS SUMMARY | ~2020-04-17 | XMS | Encounter Summary ---
Demographics + + + | Address | [address] | | | [place] [address] | + + + | Home Phone [...] Organization | [facility] Services [...] Providers + +------+ + | Care Director Digital Advertising Name | Role | Phone | + +------+ + | Jorje Hill | PCP | | + +------+ + Encounter Details +--------+ + + + + | Date | Type | Department | Care Team | Description | +--------+ + + + + | 03/21/ | Virtual | [facility] | Camille De La Paz, | Intractable chronic | | 2020 | Office | NEUROLOGY [address] | [address] | common migraine | | | Visit | [address] | [address] | without aura | | | | [place], [place] | [place] [address] | (Primary Dx) | | | | [address] | [phone] | | | | | [phone] | | | +--------+ + + + [...] a secure 256-bit AES encrypted bidirectional video MoboTap. This visit was converted to virtual visit due to COVID-19 pandemic. Service was provided otyl-io-ojyp with the patient via interactive videoconferencing Video [...] mg daily.), Disp: 30 tablet, Rfl: 11 Zwmksnj-Qxyuakzny-Crcwbec D (CITRACAL CALCIUM+D PO), Take 4 tablets [...] 2 times daily., Disp: , Rfl: rizatriptan (MAXALT-EXCEPTIONAL CHILDREN TEACHER) 5 mg disintegrating tablet, Take 5 mg by mouth as needed for Migraine. May repeat in 2 hours if needed, Disp: , Rfl: spironolactone (ALDACTONE) 50 mg tablet, Take 50 mg by mouth Daily., Disp: , Rfl: thyroid (CERTIFIED MORTICIAN THYROID) 30 mg tablet, CERTIFIED MORTICIAN Thyroid 30 mg tablet TAKE ONE TABLET [...] a 44 yo R handed lady from [place], [place] With h/o stroke at age 18, [...] | +--------+ + + + + | 09/23/ | Procedure | Neurology | IsakrainerCamille singh, | | | 2019 | visit | | MD Saumya MOE | | | | | | [address] | | | | | | [place] [address] | | | | | | [phone] | | | | | | | | +--------+ + + + + documented as of this encounter Visit Diagnoses + + | Diagnosis | + + | Intractable chronic common migraine without aura - Primary | + + documented in this encounter"
--- OUTSIDE RECORDS SUMMARY | ~2020-04-17 | XMS | Encounter Summary ---
Demographics + + + | Address | [address] | | | [place] [address] | + + + | Home Phone [...] [place], [place] | | | | | [address] | | + + + + + | Ellie Vang | ECON | Unknown | | + + + + + Care Team Providers + +------+ + | Care Mash Tub Cooker Name | Role | Phone | + [...] | | | | | obesity | [place], [place] | | | | | | ([facility]) | [address] | | | | | | Procedures | Phone: | | | | | | PHYSICAL | | | | | | | THERAPY | Fax: | | | | | | REFERRAL | [phone] | | +--------+--------+ + + + + Encounter Details +--------+ + + + + | Date | Type | Department | Care Team | Description | +--------+ + + + + | 06/22/ | Dental Scheduling Coordinator | Digestive Health | Ion Pandey, | Pre-op evaluation | | 2016 | | Center at [facility] [address] | [address] | (Primary Dx); Morbid | | | | [address] | [facility] [place] | obesity (HCC) | | | | for Health and | [address] | | | | | Healing, [address] | | | | | | [place], [place] | | | | | | [address] | | | | | | [phone] | | | +--------+ + + + [...] fax has been successf ully sent to [facility] Outpatient Therapy at [phone]. From: Gris Fontana RN-BSLoretta, ANGELITON Account: [id number] Matter: [id number] 06/22/2017 2:58:44 PM Transmission Record Sent to [id number] with remote ID "[id number]" Result: ([id number];0/0) Success Page record: Elapsed time: [...] Rd | | | | | | [place], [place] | | | | | | [address] | | | | | | [phone] | | | | | | | | +--------+---------+ + + + documented as of this encounter Visit Diagnoses + + | Diagnosis | + + | Pre-op evaluation - Primary Preoperative examination, unspecified | + + | Morbid obesity (HCC) Morbid obesity | + + documented in this encounter
--- OUTSIDE RECORDS SUMMARY | ~2020-04-17 | XMS | Encounter Summary ---
Demographics + + + | Address | [address] | | | [place] [address] | + + + | Home Phone [...] [place], [place] | | | | | [address] | | + + + + + | Ellie Vang | ECON | Unknown | | + + + + + Care Team Providers + +------+ + | Care Hazardous Materials Waste Technician Name | Role | Phone | + +------+ + | Kenyatta Cardenas MD | PCP | | + +------+ + Encounter Details +--------+ + + + + | Date | Type | Department | Care Team | Description | +--------+ + + + + | 03/02/ | Production Operations Inspector | Digestive Health | Keren Allen, | | | 2019 | | Center at [facility] [address] | AGACNP [address] | | | | | [address] [place] | Ave [facility] [place] | | | | | for Health and | [address] | | | | | Healing, [facility] 2 | | | | | | [place], [place] | | | | | | [address] | | | | | | | [...] | | | | | | [place] | | | | | | [address] | | | | | | [phone] | | | | | | | | +--------+---------+ + + + documented as of this encounter Visit Diagnoses Not on filedocumented in this encounter"
--- OUTSIDE RECORDS SUMMARY | ~2020-04-17 | XMS | Encounter Summary ---
Demographics + + + | Address | [address] | | | [place] [address] | + + + | Home Phone [...] [place], [place] | | | | | [address] | | + + + + + | Ellie Vang | ECON | Unknown | | + + + + + Care Team Providers + +------+ + | Care Pelletising Extruder Operator Name | Role | Phone [...] | 2018 | Visit | Preventive at [facility] | [address] | mellitus without | | | | [address] | [place], [place] | complication, with | | | | [facility] | [address] | long-term current | | | | and Healing, | [phone] | use of insulin (HCC) | | | | [address] | | (Primary Dx); | | | | [place], [place] | | Chronic right-sided | | | | [address] | | heart failure (HCC) | | | | [phone] | | | +--------+---------+ + + + [...] management of her heart failure by her Convalescent Sitter 3) Check A1c, lipids 4) Await bariatric surgery in February 2018 5) Continue phentermine 37.5 mg daily 6) Continue wound care, non-pressure ambulation of right foot wound 7) Follow-up 4-6 months In the interim, the patient underwent bariatric surgery and [facility]. Today, the patient reports [...] 06/23 - She is working with the corn husker in her office - She is taking [...] tongue once daily., Disp: , Rfl: CALCIUM CRB&IQB-J9-OFB83-GENIS ORAL, Take 2 tablets by mouth two [...] 3.19 11/28/2016 Lab Results Component Value Date VXDS04PECCBG 88.6 05/27/2018 Lab Results Component Value Date [...] weight of 320lbs. Plan to work with corn husker from bariatric surgery, identify etio logy of [...] is currently being managed well by her Convalescent Sitter with diuretics and mainte nance of her [...] Gissell Clements MD Fellow, Cardiovascular Medicine Pager [phone] signed by Gissell Clements MD at 06/04/2018 [...] Rd | | | | | | [place], [place] | | | | | | [address] | | | | | | [phone] | | | | | | | [...]
--- OUTSIDE RECORDS SUMMARY | ~2020-04-17 | XMS | Encounter Summary ---
Demographics + + + | Address | [address] | | | [place] [address] | + + + | Home Phone [...] + | Katalina Padilla | ECON | [address] | | | | | [place], [place] | | | | | [address] | | + + + + + | Ellie Vang | ECON | Unknown | | + + + + + Care Team Providers + +------+ + | Care Radioisotope Technician Name | Role | Phone | [...] | [address] | Lesly G[facility] | | | | | Mailcode: [facility] | [place] [address] | | | | | [place], [place] | | | | | | [address] | | | | | | [phone] | | | +--------+ + + + [...] cr iteria for [place] Housing Placement (RPV) [facility] on-line screening intake completed and RPV eligibility [...] e-mail confirmation and phone call from the [facility] Family Placement Co ordinator confirming the secured reservation. Patient will contact her Medicaid medical weems sportation broTUNDE william to coordinate her transportation to and from [facility] and [facility]. Anastacia Almaraz, Senior Linux Unix Engineer [phone] [employer] pager [phone] documented in this encounte r Plan of [...] [place] | | | | | | [address] | | | | | | [phone] | | | | | | | | +--------+---------+ + + + documented as of this encounter Visit Diagnoses Not on filedocumented in this encounter"
--- OUTSIDE RECORDS SUMMARY | ~2020-04-17 | XMS | Encounter Summary ---
Demographics + + + | Address | [address] | | | [place] [address] | + + + | Home Phone [...] Team Providers + +------+ + | Care Cement Worker Name | Role | Phone | + +------+ + PCP | Unavailable | + +------+ + Encounter Details +--------+ + + + + | Date | Type | Department | Care Team | Description | +--------+ + + + + | 12/13/ | Hospital | [facility] | Erich Wells | | | 2003 | Encounter | MED CTR SLEEP | MD Michael [address] | | | | | [place] [address] | [address] [facility] | | | | | [place], [place] | [place] [address] | | | | | [address] | [phone] | | | | | [phone] | | | +--------+ + + + [...] | | | | | [place] [address] | | | | | | [phone] | | | | | | | | +--------+ + + + + documented as of this encounter Visit Diagnoses Not on filedocumented in this encounter"
--- OUTSIDE RECORDS SUMMARY | ~2020-04-17 | XMS | Encounter Summary ---
Demographics + + + | Address | [address] | | | [place] [address] | + + + | Home Phone [...] [place], [place] | | | | | [address] | | + + + + + | Ellie Vang | ECON | Unknown | | + + + + + Care Team Providers + +------+ + | Care Park Aide Name | Role | Phone | [...] | | 2017 | | Preventive at [facility] | MD [address] | | | | | [address] | [place], [place] | | | | | [facility] | [address] | | | | | and [place], | [phone] | | | | | [place] [address] | | | | | | [facility] [place] | | | | | | [address] | | | | | | [phone] | | | +--------+ + + + [...] bariatric surgery and faxed it to the [facility] fax # [phone]. I call ed the patient to let [...] Dr. Franks as well as all her [facility] oming appointments. It should be faxed to: [facility] Patient needs this done by: As soon as we can Okay to send Linq3hart Response? n/a The best phone number to reach the patient today is [phone] please call patient when f ax has been sent. ~~~~ ROUTE TO CAR TRIAGE POOL ~~~~~ documented in this en counter Plan of Treatment +--------+---------+ + + + | Date | Type | Specialty | Care Team | Description | +--------+---------+ + + + | 06/08/ | Office | Plastic Surgery | Antoinette Hale, | | | 2019 | Visit | | [address] | | | | | | [address] | | | | | | [place], [place] | | | | | | [address] | | | | | | [phone] | | | | | | | | +--------+---------+ + + + documented as of this encounter Visit Diagnoses Not on filedocumented in this encounter"
--- OUTSIDE RECORDS SUMMARY | ~2020-04-17 | XMS | Encounter Summary ---
Demographics + + + | Address | [address] | | | [place] [address] | + + + | Home Phone [...] [place], [place] | | | | | [address] | | + + + + + | Ellie Vang | ECON | Unknown | | + + + + + Care Team Providers + +------+ + | Care Supervisor White Sugar Name | Role | Phone | + [...] Records | | 2020 | | Center [place] [address] | MD [address] | Review | | | | [facility] | [facility] | | | | | [facility] and | [place], [place] | | | | | [place] [address] | [address] | | | | | [place], [place] | [phone] | | | | | [address] | | | | | | [phone] | | | +--------+ + + + [...] Rd | | | | | | [place], [place] | | | | | | [address] | | | | | | [phone] | | | | | | | | +--------+---------+ + + + documented as of this encounter Visit Diagnoses Not on filedocumented in this encounter"
--- OUTSIDE RECORDS SUMMARY | ~2020-04-17 | XMS | Encounter Summary ---
Demographics + + + | Address | [address] | | | [place] [address] | + + + | Home Phone [...] Team Providers + +------+ + | Care Steward/Stewardess Third Class Name | Role | Phone | + [...] + + | 08/17/ | Refill | [facility] | Sulema Altamirano | Medication Refill | | 2019 | | [facility] | [address] | | | | | [address] | [address] | | | | | [address] | [place] [address] | | | | | [place] | [phone] | | | | | [address] | | | | | | [phone] | | | +--------+--------+ + + + [...] | | | | | [place] [address] | | | | | | [phone] | | | | | | | | +--------+ + + + + documented as of this encounter Visit Diagnoses Not on filedocumented in this encounter"
--- OUTSIDE RECORDS SUMMARY | ~2020-04-17 | XMS | Encounter Summary ---
Demographics + + + | Address | [address] | | | [place] [address] | + + + | Home Phone [...] + | Katalina Padilla | ECON | [address] | | | | | [place], [place] | | | | | [address] | | + + + + + | Ellie Vang | ECON | Unknown | | + + + + + Care Team Providers + +------+ + | Care Touch Up Worker Name | Role | Phone | [...] + + | 03/01/ | Hospital | [facility] [address] | Bertha Castanon, | | | 2018 - | Encounter | [address] | [address] | | | | | [place], [place] | [place], [place] | | | 03/03/ | | [address] | [address] | | | 2017 | | [phone] | [phone] | | | | | | | [...] Gavin ACNP - 03/03/2018 9:49 AM PDT [facility] RED SURGERY INPATIENT DISCHARGE SUMMARY [...] to a bariatric full liquid diets. Our [facility] dietitian was consulted and they discussed [...] at minimum. 5. Follow with PCP for [facility] within 1 - 2 weeks of discharge [...] mg by mouth two times daily. CALCIUM [id number]-[id number]-GENIS ORAL Take 2 tablets by mouth two [...] or Kefir, [place] Yogurt, and Chioban i Kuwaiti Yogurt are common brands with beneficial probiotics. [...] hours per your instructions. Some medications, like [place], have Tylenol in it. Make sure you [...] as this clinic does not provide [facility] chronic pain management services. When to Call [...] hours by calling the surgery office at [phone]. - After hours, weekends and holidays, you may call the hospital transit operator at [phone] an d have the director of online education Red Surgery Team paged. OTHER DISCHARGE ORDERS [...] at minimum. 5. Follow with PCP for Pumper Hand within 1 - 2 weeks of discharge [...] Department Dept Phone Center 03/10/2018 1:30 PM [facility] 6th Floor [phone] FO OD AND NUT 03/10/2018 3:05 PM Ronna Clarke [facility] 6th Floor [phone] [facility] 04/01/2018 10:30 AM [facility] 6th Floor [phone] FO OD AND NUT 04/01/2018 11:00 AM Bertha Castanon [facility] 6th Floor [phone] [facility] 05/27/2018 2:30 PM Dione Andre [facility] 6th Floor [phone] FO OD AND NUT 05/27/2018 3:05 PM Ronna Caron [facility] 6th Floor [phone] [facility] 05/27/2018 4:30 PM [facility] 15th Floor [phone] Comprehensiv 06/04/2018 10:35 AM Randell Franks Cardiology Preventive at [facility] [phone] Cardiology Discharging Physician: KAIN Agee Attending Physician: Bertha Castanon MD [facility] Red Surgery Pager# [phone] 9:50 AM 03/03/2018 documented in this enco [...] | | 0 | | | | [id number]-GEN | mouth two times | | | [...] date of discharge 03/03/18 PARTHA Calixto MS3 [facility] [employer] Demarcus Menon MD [...] controlled on insulin gtt Assessment and Plan: Elzbeita Cristina is a 43 y.o. female POD [...] for care ride home (pt lives in [place]) Demarcus Alas M.D. General Surgery Resident PGY-1 Pager: [phone] Bertha Ferrari MD - 10:00 AM PDTI [...] with the procedure today. Charo Shelley MD [facility] [address] [place] [address]/[address]10 [place] [address] documented in this en counter Procedure Notes [...] Primary Surgeon: Bertha Castanon MD Co Surgeon government property inspector: Eldon Gonzalez MD, Chief Resident Alexx Irwin [...] The jejunum was divided with 60 mm Oquawka stapler with white load and the distal staple line was marke d with silk suture. The mesentery was divided with harmonic ultrasonic device. The distal jejunum was measure to 150 cm. A stay-suture was placed at this location to the proximal di vided staple line (biliopancreatic limb). Enterotomies were created in each limb and a 60mm [place]quawka stapler with white load was fired to create a oabr-wi-mbsn jejunojejunostomy. The anastamosis was confirmed to be widely patent and hemostatic. The common enterotomy was michael sed by placing 2 stay sutures along the enterotomy for retraction and firing an Oquawka 60mm stapler with white load across the [...] the lesser sac was entered. The 60mm Oquawka s tapler with blue load was placed [...] blue load of the 60mm stapler. The Oquawka was then fired longitudinally towards the angle of His to create the gastric pouch, leaving the gastrotomy from foreign body remov al, on the pouch. Dissection was performed retrogastric to connect posterior and anterior d issection planes and ensure adequate fundus exclusion. Additional fires of the Oquawka stap ler were performed with blue loads [...] ooze were controlled with 5 mm clip game farm helper. A 25mm Orvil was passed transorally by [...] The jejunal enterotomy was closed with 60mm Oquawka stapler with a w demarcus load. Medially [...] and Dr. Wagner was present as my insurance account assistant for th e entire procedure, given the technically challenging nature of this procedure. She assisted in all critical steps of the procedure. Dr. Gonzalez was present for endoscopy at the end of the procedure. Bertha Castanon MD, FACS, [facility] Bariatric Surgery documented in this en [...] Curre nt diabetic managed is provided by [facility] Dr. Franks. She is s/p Laparoscopic gas [...] Dr. Andie Brian Incisional hernia repair 03/01/2015 [facility]/ Dr. Cantu. Primary fascial closure and scar excision Outpatient Medications Prior to Admission Medications Prescriptions ALPRAZolam 1 mg oral tablet Sig: Take 1 mg by mouth three times daily as needed for anxiety. CALCIUM CRB&ACG-C2-[id number]-GENIS ORAL Sig: Take 2 tablets by mouth [...] History Narrative Updated 11/09/15 She lives in [place] with her mother and her sister (also her caregiver) lives in an [facility] rtment/duplex below. She has 2 grandchildren (age 4 and 7) who live with her daughter and son-in-law Her boyfriend lives in [place] HFpEF, DM2, HTN, Sleep Apnea (unable to tolerate CPAP), Hypothyroidism, Severe Obesity ([facility] max weight 495 lbs) Last seen [...] here and refer her to our client relation specialist who also has expertise in physical [...] T2DM. Current diabetic managed is provided by [facility] Dr. Franks. Her home brittany men includes [...] at minimum. 4. Follow with PCP for Pumper Hand within 1 - 2 weeks of discharge [...] their care, or floor time with [facility] gallo RN(s) caring for this pt. This patient's assessment and plan was discussed with consult attending Dr. Dino August & Fellow Myke Bergeron. Kaylee Ferguson [facility] Endocrinology, Diabetes, & Clinical Nutrition Pager [phone] hyllisKaylee A [facility] - 03/02/2018 8:13 AM PDTFormatting of this [...] Curre nt diabetic managed is provided by [facility] Dr. Franks. She is s/p Laparoscopic gas [...] Dr. Andie Brian Incisional hernia repair 03/01/2015 [facility]/ Dr. Cantu. Primary fascial closure and scar excision Outpatient Medications Prior to Admission Medications Prescriptions ALPRAZolam 1 mg oral tablet Sig: Take 1 mg by mouth three times daily as needed for anxiety. CALCIUM CRB&VLQ-J0-[id number]-GENIS ORAL Sig: Take 2 tablets by mouth [...] History Narrative Updated 11/09/15 She lives in [place] with her mother and her sister (also her caregiver) lives in an [place] rtment/duplex below. She has 2 grandchildren (age 4 and 7) who live with her daughter and son-in-law Her boyfriend lives in [place] HFpEF, DM2, HTN, Sleep Apnea (unable to tolerate CPAP), Hypothyroidism, Severe Obesity ([facility] max weight 495 lbs) Last seen [...] here and refer her to our client relation specialist who also has expertise in physical [...] T2DM. Current diabetic managed is provided by [facility] Dr. Franks. Her home brittany men includes [...] recommendations will follow closer to discharge [facility] Endocrinology, Diabetes, & Clinical Nutrition Pager [phone] I spent 25 minutes in the care [...] Curre nt diabetic managed is provided by [facility] Dr. Franks. She is s/p Laparoscopic gas [...] Dr. Andie Brian Incisional hernia repair 03/01/2015 [facility]/ Dr. Cantu. Primary fascial closure and scar excision Outpatient Medications Prior to Admission Medications Prescriptions ALPRAZolam 1 mg oral tablet Sig: Take 1 mg by mouth three times daily as needed for anxiety. CALCIUM CRB&NCE-K0-ICL78-GENIS ORAL Sig: Take 2 tablets by mouth [...] History Narrative Updated 11/09/15 She lives in [place] with her mother and her sister (also her caregiver) lives in an [facility]duplex below. She has 2 grandchildren (age 4 and 7) who live with her daughter and son-in-law Her boyfriend lives in [place] HFpEF, DM2, HTN, Sleep Apnea (unable to [...] here and refer her to our client relation specialist who also has expertise in physical [...] T2DM. Current diabetic managed is provided by [facility] Dr. Franks. Her home brittany men includes [...] CENTER Endocrinology, Diabetes, & Clinical Nutrition Pager [phone] I spent 40 minutes in the care [...] and when/how to notify the doctor. The pre sales technical engineer spoke with her about her changes to her insulin regimen. Patient verbalized understanding. All peripheral lines rem lisbet. Patient voiding, passing flatus and pain adequately managed. All questions answered by nursing staff. Discharge Nurse: CHIRAG HARVEY RN andoff - Daniella Godwin RN - 03/03/2018 6:50 AM PDTNursing Handoff [facility] IP NURSE HANDOFF: Jiang hospital course [...] Yeast in folds - nystatin powder applied. lEzbieta does not like to use the Nystatin [...] of education, expect good compliance. Macy Leyva Loomio Pager #[phone] andoff - Jasmin Godwin RN - 03/02/2018 [...] RN - 03/01/2018 6:00 PM PDTNursing Handoff [facility] IP NURSE HANDOFF: Jiang hospital course [...] Additional pain medication information: Functional Epidural: N/A MIXER DIAMOND POWDER: N/A Respiratory: RR: 12, O2 Sat: 100 [...] 106 mL Contact Name: Dimple Contact Number: [phone] Family contacted: Yes Comment Belongings: with family documented in this encounter Plan of Treatment +--------+---------+ + + + | Date | Type | Specialty | Care Team | Description | +--------+---------+ + + + | 06/08/ | Office | Plastic Surgery | Antoinette Hale, | | | 2019 | Visit | | [address] | | | | | | [address] | | | | | | [place], [place] | | | | | | [address] | | | | | | [phone] | | | | | | | [...] | PDT | over, adult ([facility]) | results section. | + +--------+ + + + | CAPILLARY BLOOD | Routin | 03/03/2018 | Morbid obesity | Results for this | | GLUCOSE (NO CHG), | e | 6:28 AM | with BMI of 70 and | procedure are in the | | POC | | PDT | over, adult ([facility]) | results section. | + +--------+ + + + | CAPILLARY BLOOD | Routin | 03/02/2018 | Morbid obesity | Results for this | | GLUCOSE (NO CHG), | e | 9:17 PM | with BMI of 70 and | procedure are in the | | POC | | PDT | over, adult ([facility]) | results section. | + +--------+ + + + | CAPILLARY BLOOD | Routin | 03/02/2018 | Morbid obesity | Results for this | | GLUCOSE (NO CHG), | e | 6:50 PM | with BMI of 70 and | procedure are in the | | POC | | PDT | over, adult ([facility]) | results section. | + +--------+ + + + | CAPILLARY BLOOD | Routin | 03/02/2018 | Morbid obesity | Results for this | | GLUCOSE (NO CHG), | e | 3:46 PM | with BMI of 70 and | procedure are in the | | POC | | PDT | over, adult ([facility]) | results section. | + +--------+ + + + | CAPILLARY BLOOD | Routin | 03/02/2018 | Morbid obesity | Results for this | | GLUCOSE (NO CHG), | e | 2:36 PM | with BMI of 70 and | procedure are in the | | POC | | PDT | over, adult ([facility]) | results section. | + +--------+ + + + | CAPILLARY BLOOD | Routin | 03/02/2018 | Morbid obesity | Results for this | | GLUCOSE (NO CHG), | e | 1:33 PM | with BMI of 70 and | procedure are in the | | POC | | PDT | over, adult ([facility]) | results section. | + +--------+ + + + | CAPILLARY BLOOD | Routin | 03/02/2018 | Morbid obesity | Results for this | | GLUCOSE (NO CHG), | e | 11:36 AM | with BMI of 70 and | procedure are in the | | POC | | PDT | over, adult ([facility]) | results section. | + +--------+ + + + | CAPILLARY BLOOD | Routin | 03/02/2018 | Morbid obesity | Results for this | | GLUCOSE (NO CHG), | e | 10:32 AM | with BMI of 70 and | procedure are in the | | POC | | PDT | over, adult ([facility]) | results section. | + +--------+ + + + | CAPILLARY BLOOD | Routin | 03/02/2018 | Morbid obesity | Results for this | | GLUCOSE (NO CHG), | e | 9:23 AM | with BMI of 70 and | procedure are in the | | POC | | PDT | over, adult ([facility]) | results section. | + +--------+ + + + | CAPILLARY BLOOD | Routin | 03/02/2018 | Morbid obesity | Results for this | | GLUCOSE (NO CHG), | e | 8:36 AM | with BMI of 70 and | procedure are in the | | POC | | PDT | over, adult ([facility]) | results section. | + +--------+ + + + | CAPILLARY BLOOD | Routin | 03/02/2018 | Morbid obesity | Results for this | | GLUCOSE (NO CHG), | e | 7:35 AM | with BMI of 70 and | procedure are in the | | POC | | PDT | over, adult ([facility]) | results section. | + +--------+ + + + | CAPILLARY BLOOD | Routin | 03/02/2018 | Morbid obesity | Results for this | | GLUCOSE (NO CHG), | e | 6:33 AM | with BMI of 70 and | procedure are in the | | POC | | PDT | over, adult ([facility]) | results section. | + +--------+ + + + | CAPILLARY BLOOD | Routin | 03/02/2018 | Morbid obesity | Results for this | | GLUCOSE (NO CHG), | e | 5:28 AM | with BMI of 70 and | procedure are in the | | POC | | PDT | over, adult ([facility]) | results section. | + +--------+ + + + | CAPILLARY BLOOD | Routin | 03/02/2018 | Morbid obesity | Results for this | | GLUCOSE (NO CHG), | e | 4:36 AM | with BMI of 70 and | procedure are in the | | POC | | PDT | over, adult ([facility]) | results section. | + +--------+ + + + | CAPILLARY BLOOD | Routin | 03/02/2018 | Morbid obesity | Results for this | | GLUCOSE (NO CHG), | e | 2:46 AM | with BMI of 70 and | procedure are in the | | POC | | PDT | over, adult ([facility]) | results section. | + +--------+ + + + | CAPILLARY BLOOD | Routin | 03/02/2018 | Morbid obesity | Results for this | | GLUCOSE (NO CHG), | e | 12:32 AM | with BMI of 70 and | procedure are in the | | POC | | PDT | over, adult ([facility]) | results section. | + +--------+ + + + | CAPILLARY BLOOD | Routin | 03/01/2018 | Morbid obesity | Results for this | | GLUCOSE (NO CHG), | e | 10:31 PM | with BMI of 70 and | procedure are in the | | POC | | PDT | over, adult ([facility]) | results section. | + +--------+ + + + | CAPILLARY BLOOD | Routin | 03/01/2018 | Morbid obesity | Results for this | | GLUCOSE (NO CHG), | e | 8:21 PM | with BMI of 70 and | procedure are in the | | POC | | PDT | over, adult ([facility]) | results section. | + +--------+ + [...] | PDT | over, adult ([facility]) | results section. | + +--------+ + + + | CAPILLARY BLOOD | Routin | 03/01/2018 | Morbid obesity | Results for this | | GLUCOSE (NO CHG), | e | 3:31 PM | with BMI of 70 and | procedure are in the | | POC | | PDT | over, adult ([facility]) | results section. | + +--------+ + + + | CAPILLARY BLOOD | Routin | 03/01/2018 | Morbid obesity | Results for this | | GLUCOSE (NO CHG), | e | 3:29 PM | with BMI of 70 and | procedure are in the | | POC | | PDT | over, adult ([facility]) | results section. | + +--------+ + + + | CAPILLARY BLOOD | Routin | 03/01/2018 | Morbid obesity | Results for this | | GLUCOSE (NO CHG), | e | 2:30 PM | with BMI of 70 and | procedure are in the | | POC | | PDT | over, adult ([facility]) | results section. | + +--------+ + + + | CAPILLARY BLOOD | Routin | 03/01/2018 | Morbid obesity | Results for this | | GLUCOSE (NO CHG), | e | 1:35 PM | with BMI of 70 and | procedure are in the | | POC | | PDT | over, adult ([facility]) | results section. | + +--------+ + + + | CAPILLARY BLOOD | Routin | 03/01/2018 | Morbid obesity | Results for this | | GLUCOSE (NO CHG), | e | 12:16 PM | with BMI of 70 and | procedure are in the | | POC | | PDT | over, adult ([facility]) | results section. | + +--------+ + [...] | PDT | over, adult ([facility]) | results section. | + +--------+ + + + | LAPAROSCOPIC | Electi | 03/01/2018 | Morbid obesity | | | NISH-EN-Y GASTRIC | ve | 8:31 AM | ([facility]) | | | BYPASS | Surgic | [...] [facility] | [address] | [place], [place] | | | [facility] | [address] | [address] | | | TESTS | | | [...] [facility] | [address] | [place], [place] | | | [facility] | [facility] | [address] | | | TESTS | | | [...] [facility] | [address] | [place], [place] | | | [facility] | [address] | [address] | | | TESTS | | | [...] [facility] | [address] | [place] | | | [facility] | [address] | [address] | | | TESTS | | | [...] [facility] | [address] | [place], [place] | | | [facility] | [address] | [address] | | | TESTS | | | [...] [facility] | [address] | [place], [place] | | | [facility] | [address] | [address] | | | TESTS | | | [...] [facility] | [address] | [place], [place] | | | [facility] | [address] | [address] | | | TESTS | | | [...] - [facility] | [address] | [place], [place] | | | [facility] | [address] | [address] | | | TESTS | | | [...] [facility] | [address] | [place], [place] | | | [facility] | [address] | [address] | | | TESTS | | | [...] [facility] | [address] | [place], [place] | | | [facility] | [address] | [address] | | | TESTS | | | [...] - [facility] | [address] | [place], [place] | | | [facility] | [address] | [address] | | | TESTS | | | [...] [facility] | [address] | [place], [place] | | | [facility] | [address] | [address] | | | TESTS | | | [...] [facility] | [address] | [place], [place] | | | [facility] | [address] | [address] | | | TESTS | | | [...] - [facility] | [address] | [place], [place] | | | [facility] | [address] | [address] | | | TESTS | | | [...] + + + | [facility] | [address] | [place], [place] | | | [facility] | [address] | [address] | | | TESTS | | | [...] [facility] | [address] | [place], [place] | | | [facility] | [address] | [address] | | | TESTS | | | [...] [facility] | [address] | [place], [place] | | | [facility] | [address] | [address] | | | TESTS | | | [...] [facility] | [address] | [place], [place] | | | [facility] | [address] | [address] | | | TESTS | | | [...] [facility] | [address] | [place], [place] | | | [facility] | [address] | [address] | | | TESTS | | | [...] [facility] | [address] | [place], [place] | | | [facility] | [address] | [address] | | | TESTS | | | [...] [facility] | [address] | [place], [place] | | | [facility] | [address] | [address] | | | TESTS | | | [...] [facility] | [address] | [place], [place] | | | [facility] | [address] | [address] | | | TESTS | | | [...] - [facility] | [address] | [place], [place] | | | [facility] | [address] | [address] | | | TESTS | | | [...] (H) | 70 - 99 mg/dL | [facility] [...] + + + | [facility] | [address] | [place], [place] | | | [facility] | [address] | [address] | | | TESTS | | | [...] [facility] | [address] | [place], [place] | | | [facility] | [address] | [address] | | | TESTS | | | [...] | N[facility] | [address] [facility] [address] | [place], [place] | | | [facility] | [address] | [address] | | | TESTS | | | | + + + + + EGD (ESOPHAGOGASTRODUODENOSCOPY) (03/01/2018 11:21 AM PDT) + + + | Narrative | Performed At | + + + | Bertha Castanon MD 03/01/2018 12:25 PM Date of Procedure: | | | 03/01/18 Primary Surgeon: Bertha Castanon MD Co Surgeon or | | | insurance account assistant: Eldon Gonzalez MD, Chief Resident Alexx [...] The jejunum was divided with 60 mm O[place] stapler with white | | | load [...] created in each limb and a 60mm [place]qu[place] stapler | | | with white load was fired to create a eubs-py-knzc | | | jejunojejunostomy. The anastamosis was confirmed to be widely | | | patent and hemostatic. The common enterotomy was closed by placing | | | 2 stay sutures along the enterotomy for retraction and firing an | | | [place] 60mm stapler with white load across the [...] | | | was entered. The 60mm [place]qu[place] stapler with blue load was placed | [...] blue load of the 60mm stapler. The Oqu[place]ka was then fired | | | longitudinally towards the angle of His to create the gastric pouch, | | | leaving the gastrotomy from foreign body removal, on the pouch. | | | Dissection was performed retrogastric to connect posterior and | | | anterior dissection planes and ensure adequate fundus exclusion. | | | Additional fires of the [place] stapler were performed with blue | | [...] with | | | 5 mm clip game farm helper. A 25mm Orvil was passed transorally by [...] was closed with 60mm | | | [place] stapler with a white load. Medially and [...] was present | | | as my insurance account assistant for the entire procedure, given the technically | | | challenging nature of this procedure. She assisted in all critical | | | steps of the procedure. Dr. Gonzalez was present for endoscopy at the | | | end of the procedure. Bertha Castanon MD, FACS, [facility] | | | Bariatric Surgery | [...] MD Co Surgeon or | | | insurance account assistant: Eldon Gonzalez MD, Chief Resident Alexx [...] The jejunum was divided with 60 mm [place] stapler with white | | | load [...] created in each limb and a 60mm [place] stapler | | | with white load was fired to create a uppr-mq-lies | | | jejunojejunostomy. The anastamosis was confirmed to be widely | | | patent and hemostatic. The common enterotomy was closed by placing | | | 2 stay sutures along the enterotomy for retraction and firing an | | | [place] 60mm stapler with white load across the [...] | | | was entered. The 60mm [place] stapler with blue load was placed | [...] blue load of the 60mm stapler. The Oqu[place]ka was then fired | | | longitudinally towards the angle of His to create the gastric pouch, | | | leaving the gastrotomy from foreign body removal, on the pouch. | | | Dissection was performed retrogastric to connect posterior and | | | anterior dissection planes and ensure adequate fundus exclusion. | | | Additional fires of the [place] stapler were performed with blue | | [...] with | | | 5 mm clip game farm helper. A 25mm Orvil was passed transorally by [...] was closed with 60mm | | | Oquawka stapler with a white load. Medially and [...] was present | | | as my insurance account assistant for the entire procedure, given the technically | | | challenging nature of this procedure. She assisted in all critical | | | steps of the procedure. Dr. Gonzalez was present for endoscopy at the | | | end of the procedure. Bertha Castanon MD, FACS, [facility] | | | Bariatric Surgery | [...] [facility] | [address] | [place], [place] | | | [facility] [facility] | [facility] | [address] | | | TESTS | | | [...] of 70 and over, adult ([facility]) - Primary | + + | Diabetes mellitus type 2 without retinopathy ([facility]) Type II or unspecified type |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 without mention of complication, not stated as uncontrolled | + + | AMARA treated with BiPAP | + + | Chronic diastolic heart failure ([facility]) Chronic diastolic heart failure | + + [...] | | CONTINUOUS, Starting 03/01/18 | | AM PDT | | [...]
--- OUTSIDE RECORDS SUMMARY | ~2020-04-17 | XMS | Encounter Summary ---
Demographics + + + | Address | [address] | | | [place] [address] | + + + | Home Phone [...] [place], [place] | | | | | [address] | | + + + + + | Ellie Vang | ECON | Unknown | | + + + + + Care Team Providers + +------+ + | Care Prospect Manager Name | Role | Phone | [...] | 2016 | on | Center at [facility] [address] | | | | | | [address] [facility] | | | | | | for Health and | | | | | | Healing, [facility] 2 | | | | | | [place], [place] | | | | | | [address] | | | | | | [phone] | | | +--------+ + + + [...] | | 2019 | Visit | | [address] | | | | | | [address] | | | | | | [place], [place] | | | | | | [address] | | | | | | [phone] | | | | | | | | +--------+---------+ + + + documented as of this encounter Visit Diagnoses Not on filedocumented in this encounter"
--- OUTSIDE RECORDS SUMMARY | ~2020-04-17 | XMS | Encounter Summary ---
Demographics + + + | Address | [address] | | | [place] [address] | + + + | Home Phone [...] [place], [place] | | | | | [address] | | + + + + + | Ellie Vang | ECON | Unknown | | + + + + + Care Team Providers + +------+ + | Care Television Parts Tester Name | Role | Phone | [...] Davis | | | | | [facility] | [facility] | | | | | [facility] Admitting | [place] [address] | | | | | Desk Located on the | [phone] | | | | | 9th floor | | | | | | [place], [place] | | | | | | [address] | | | +--------+ + + + [...] | No; anterior; abdomen; 05/14/17 | Lizzeth Lny RN | Discontinued After | | Incisi [...] be different from the original. 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 Elzbieta Cristina [id number] Allergies Allergen Reactions Amoxicillin Benadrilina (Diphenhydramine Hcl) [...] Date RATE 96 11/06/2012 ATRIALRATE 96 11/06/2012 NH 164 11/06/2012 QRS 92 11/06/2012 QT 376 11/06/2012 QTC 475 11/06/2012 PAXIS 35 11/06/2012 RAXIS 60 11/06/2012 TAXIS 45 11/06/2012 EKGDX Value: Normal sinus rhythm Normal ECG "I have personally interpreted this report, e ither alone or with a trainee." Confirmed by CARINA SMITH ([id number]) on 11/06/2012 3:29:04 PM Preoperative Adult Anesthesia Plan Last edited 02/07/14 2417 by Andie Hope MD ROS Pertinent HPI: [...] Findings: tone normal Neuro/Psych: alert Integument: Implants: 9438 Anesthesia Plan Comments ASA ASA 3 NPO [...] | | 2020 | Visit | | [address] [facility] | | | | | | [address] | | | | | | [place], [place] | | | | | | [address] | | | | | | [phone] | | | | | | | [...] INTRAPROCEDURE PRN, Starting Tu | | 14 6:40 | | | | | 7/15/14 at 1840, Until e | | PM PDT | | | [...]
--- OUTSIDE RECORDS SUMMARY | ~2020-04-17 | XMS | Encounter Summary ---
Demographics + + + | Address | [address] | | | [place] [address] | + + + | Home Phone [...] [place], [place] | | | | | [address] | | + + + + + [...] | Tiny, | | | | | DC EST | Fadi Person DO | MD Randell | | | | | PATIENT | [address] | [address] | | | | | [address] | [address] | | | | | | [place], | [place], [place] | | | | | | [place] [address] | [address] | | | | | | Phone: | Phone: | | | | | | [phone] | [phone] | | | | | | Fax: | Fax: | | | | | | [phone] | [phone] | +--------+--------+ + + + + Encounter Details +--------+---------+ + + + | Date | Type | Department | Care Team | Description | +--------+---------+ + + + | 04/03/ | Office | Cardiology | Randell Franks, | Morbid obesity (HCC) | | 2014 | Visit | Preventive at [facility] | [address] | (Primary Dx); Type | | | | [address] | [place], [place] | 2 diabetes mellitus | | | | [facility] | [address] | without complication | | | | and Healing, | [phone] | ([facility]) | | | | Building [address] | | | | | | [place], [place] | | | | | | [address] | | | | | | [phone] | | | +--------+---------+ + + + [...] 500 mg by mouth once daily. CALCIUM CRB&VZO-G8-ERQ36-GENIS ORAL Take 1 tablet by mouth two [...] documented, but if we use her last [facility] weight of 410 lbs, this would put her at 360 lbs before consideration for RYGBP. She is working with the bariatric surgery electrician assistant to try to achieve this. She [...] visit Diet: healthy, working with [employer] electrician assistant Exercise: "I walk everywhere." ROS: No [...] | | 2019 | Visit | | [address] | | | | | | [address] | | | | | | [place], [place] | | | | | | [address] | | | | | | [phone] | | | | | | | | +--------+---------+ + + + documented as of this encounter Visit Diagnoses + + | Diagnosis | + + | Morbid obesity (HCC) - Primary Morbid obesity | + + | Type 2 diabetes mellitus without complication (HCC) | + + documented in this encounter
--- OUTSIDE RECORDS SUMMARY | ~2020-04-17 | XMS | Encounter Summary ---
Demographics + + + | Address | [address] | | | [place] [address] | + + + | Home Phone [...] [place], [place] | | | | | [address] | | + + + + + | Ellie Vang | ECON | Unknown | | + + + + + Care Team Providers + +------+ + | Care Batch Unloader Name | Role | Phone | + [...] | | | Procedures | | Rd [place], | | | | | [place] | | [place] | | | | | IN[place]IAL | | [address] | | | | | ASSESSMNT | | | | | | | X15MIN [place] | | | | | | [...] | 2012 | Visit | Center at [facility] [address] | [address] [facility] | mellitus (HCC) | | | | [facility] | [address] | (Primary Dx); Morbid | | | | for Health and | [place], [place] | obesity (HCC) | | | | [place] [address] | [address] | | | | | [place], [place] | | | | | | [address] | | | | | | [phone] | | | +--------+---------+ + + + [...] PDTNutrition appointment, -try keeping food logs online: -www.[employer] -wwwAppNexus -[email or web address].[email or web address] -Aim for 3229-7702 calories a day -Increase physical activity -try [...] appropriate portions. Denies any binge eating. 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 Up [...] 1000/d--a more appropriate long-term range would be 9344-0032/day. Inadequat e calcium intake; did not address [...] w/ meals & snacks 2. Aim for 3533-8792 kcal/d 3. Keep food logs (at least 1-2 days a week, particularly during a "plateau") 4. Increase physical activity; aim for 30 minutes a day. Try Sit & Be Fit (provided parag patterson) 5. Add 500-600 mg calcium citrate w/ vitamin D daily 6. Consider counseling to address emotional eating 7. Begin practicing mindful eating RD phone number, office hours provided to patient. Follow up in 1-2 months or as needed. Olga Lidia Montanez RD, LD Pager [phone] documented in this en counter Plan of Treatment +--------+---------+ + + + | Date | Type | Specialty | Care Team | Description | +--------+---------+ + + + | 06/08/ | Office | Plastic Surgery | Antoinette Hale, | | | 2019 | Visit | | [address] | | | | | | [address] | | | | | | [place], [place] | | | | | | [address] | | | | | | [phone] | | | | | | | | +--------+---------+ + + + documented as of this encounter Procedures + +--------+ + + + | Procedure Name | Priori | Date/Time | Associated Diagnosis | Comments | | | ty | | | | + +--------+ + + + | [place] MNT INITIAL | Routin | 04/14/2013 | [...]
--- OUTSIDE RECORDS SUMMARY | ~2020-04-17 | XMS | Encounter Summary ---
Demographics + + + | Address | [address] | | | [place] [address] | + + + | Home Phone [...] [place], [place] | | | | | [address] | | + + + + + | Ellie Vang | ECON | Unknown | | + + + + + Care Team Providers + +------+ + | Care Event Decorator And Designer Name | Role | Phone | + +------+ + | Fadi Goodrich DO | PCP | | + +------+ + Reason for Visit + +--------+ + | Reason | Onset | Comments | | | Date | | + +--------+ + | Update from Patient | 04/12/ | | | | 2017 | | + +--------+ + | Postoperative | 04/12/ | | | infection | 2018 | | + +--------+ + Encounter Details +--------+ + + + + | Date | Type | Department | Care Team | Description | +--------+ + + + + | 04/12/ | Telephone | Digestive Health | Ion Pandey, | Update from Patient; | | 2017 | | [place] [address] | MD [address] | Postoperative | | | | Ave Mailcode: CH4S | [place], [place] | infection | | | | [facility] | [address] | | | | | and Healing, | [phone] | | | | | [place] [address] [facility] | | | | | | [place], [place] | | | | | | [address] | | | | | | [phone] | | | +--------+ + + + [...] Telephone Encounter - Melissa Garay RN - 04/12/2018 1:44 PM PDTSpoke with Elzbieta and s he says that one of the incision sites has redness around it, hot to touch, increased pain a nd had yellow drainage. She says that it started 3-4 days ago. Recommended that she contact her PCP and make an appointment to have assess it. Recommended that she shower daily and let soapy water run over it and try to leave it open to air. She states understanding and will try to make an appointment for today or tomorrow morning and will call back here if needed. elephone Encounter - Magdalene Randolph - 04/12/2018 10:38 AM PDTPt is calling because she had a gastric bypass surg eileen 6 weeks ago and is saying that incision site is yellow and has puss. She states pain lev el 01/03. SOFI Boles. Pt seeking a call back as soon as possible. Routed to amonate. Electronical ly signed by Magdalene Randolph at 04/12/2018 10:39 AM PDTdocumented in this encounter Plan of [...] Rd | | | | | | [place] | | | | | | [address] | | | | | | [phone] | | | | | | | | +--------+---------+ + + + documented as of this encounter Visit Diagnoses Not on filedocumented in this encounter"
--- OUTSIDE RECORDS SUMMARY | ~2020-04-17 | XMS | Encounter Summary ---
Demographics + + + | Address | [address] | | | [place] [address] | + + + | Home Phone [...] [place], [place] | | | | | [address] | | + + + + + | Ellie Vang | ECON | Unknown | | + + + + + Care Team Providers + +------+ + | Care Grade Foreman Name | Role | Phone | [...] | | 2018 | | Center at [facility] [address] | [facility] [address] | | | | | [address] [place] | [place], [place] | | | | | for Health and | [address] | | | | | [facility] 2 | [phone] | | | | | [place], [place] | | | | | | [address] | | | | | | [phone] | | | +--------+ + + + [...] Whitmore - 03/11/2018 11:54 AM PDTPt saw ORTHOPEDIC SHOES SALESPERSON Vince yes terday, she was told to [...] Rd | | | | | | [place], [place] | | | | | | [address] | | | | | | [phone] | | | | | | | | +--------+---------+ + + + documented as of this encounter Visit Diagnoses Not on filedocumented in this encounter
--- OUTSIDE RECORDS SUMMARY | ~2020-04-17 | XMS | Encounter Summary ---
Demographics + + + | Address | [address] | | | [place] [address] | + + + | Home Phone [...] [place], [place] | | | | | [address] | | + + + + + | Ellie aVng | ECON | Unknown | | + + + + + Care Team Providers + +------+ + | Care Health Care Facilities Inspector Name | Role | Phone | [...] | | 2019 | | Center at [facility] [address] | | Review | | | | [facility] | | | | | | for Health and | | | | | | [facility], [place] [address] | | | | | | Campus, [place] | | | | | | [address] | | | | | | [phone] | | | +--------+ + + + [...] Rd | | | | | | [place], [place] | | | | | | [address] | | | | | | [phone] | | | | | | | | +--------+---------+ + + + documented as of this encounter Visit Diagnoses Not on filedocumented in this encounter"
--- OUTSIDE RECORDS SUMMARY | ~2020-04-17 | XMS | Encounter Summary ---
Demographics + + + | Address | [address] | | | [place] [address] | + + + | Home Phone | | + + + | Preferred Language | Unknown | + + + | Marital Status | | + + + | Spiritism Affiliation | Unknown | + + + | Race | White | + + + | Ethnic Group | Not or | + + + Author + + + | Author | [facility] | | | and [place] | + + + | Organization | [facility] | | | [...] Team Providers + +------+ + | Care Costume Maker Name | Role | Phone | [...] + + | 10/26/ | Virtual | [facility] | Sulema Altamirano | Chronic diastolic | | 2019 | Office | [facility]Y [place] | [address] | heart failure (HCC) | | | Visit | [address] | [address] | (Primary Dx); | | | | [address] | [place] [address] | History of sinus | | | | [place] | [phone] | tachycardia; History | | | | [address] | | of stroke; HTN, | | | | [phone] | | goal below 130/80; | | [...] minutes of medical discussion via telephone visit ([id number]) Patient has not been seen in office [...] dysfunction with previous dysfunctional RV treated at [facility] with diuresis and hospitalization for one month., sleep apnea treated with BiPAP, t ype II diabetes now resolved with weight loss, hypothyroidism, previous morbid obesity with alveolar hypoventilation, Frandy-en-Y gastric bypass surgery 02/2018, osteoarthritis,DVT and PE 2016, hypokalemia and hyperuricemia which is being followed by research physician Dr. Fu, Her current and previous testing [...] to lose weight. She followed up with cross enterprise integrator at [facility], Dr. Franks, who reported that [...] weight loss. Hypothyroidism,followed by Dr. Kat alva, cross enterprise integrator at [facility]) . Denies excessive thirst or [...] knee pain and hernia pain Lives in [place] her mother who smokes. . Sister is school childcare attendant. Grandchildren ages 4 and 7 live with he r daughter and son-in-law. Disabled , on disability .01/24/2019: working with [employer] to get her own place. Outpatient Medications Prior to Visit Medication Sig Dispense Refill ALPRAZolam (XANAX) 0.5 mg tablet Take 0.5-1 mg by mouth 3 times daily as needed. ascorbic acid (VITAMIN C) 500 MG tablet Take 1,000 mg by mouth Daily. atenolol (TENORMIN) 50 mg tablet Take 1 tablet by mouth nightly. 30 tablet 11 Qjukehd-Ivgvnirfe-Kuuipji D (CITRACAL CALCIUM+D PO) Take 4 tablets [...] mL every day by injection route. rizatriptan (MAXALT-COAL UNLOADER) 5 mg disintegrating tablet Take 5 mg by mouth as needed for Mi graine. May repeat in 2 hours if needed spironolactone (ALDACTONE) 50 mg tablet Take 50 mg by mouth Daily. thyroid (FUR MIXER OPERATOR THYROID) 30 mg tablet FUR MIXER OPERATOR Thyroid 30 mg tablet TAKE ONE [...] , and aortic arch normal Echo: 01/02/2016 ([facility]): TDS, cardiac chamber dimensions grossly NML, LVEF >70%, rodriguez tolic function normal for patient. Unable to assess segmental wall motion. RV grossly norm al. Aortic valve sclerotic, no As/AI. Mitral and tricuspid valves grossly normal. Trace T R. No pericardial effusion VASCULAR TESTING AND PROCEDURES Left lower extremity DVT, presumed PE: 10/2015 [facility]. treated with heparin drip and Coumadin 10 in hospital, with Coumadin 6 months as outpatient, ASA 81 mg continued Venous US: right leg, 04/28/2016: No evidence of DVT. EKG EKG 10/27: ([facility]) Normal sinus rhythm. Normal EKG. Rate 93 bpm, NM 172 ms, QRS 90 ms, QTC 465 ms personally reviewed by me in the office today) EK02/05: Sinus tachycardia, otherwise normal. Rate 160 bpm, NM 174 ms, QRS 74 ms, QTC 451 ms (personally reviewed by me in the office today and no significant change seen fro m EKG done in October 2016 except for faster heart rate) EK04/26/2018: Normal sinus rhythm, rate 74 bpm, NM 182 ms, QRS 96 ms, QTC 472 ms, alexandru genao personally reviewed by me, and compared to previous EKG, heart rate is now better controll ed, otherwise similar morphology EK04/28/2019: Normal sinus rhythm, right axis. Rate 74 bpm, NM 170 ms, QRS 88 ms, QTC 45 [...] elevated, requiring increased calcium dosing from her cross enterprise integrator. 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
--- OUTSIDE RECORDS SUMMARY | ~2020-04-17 | XMS | Encounter Summary ---
Demographics + + + | Address | [address] | | | [place] [address] | + + + | Home Phone [...] + | Kenny Padilla | ECON | [address] | | | | | [place], [place] | | | | | [address] | | + + + + + | lElie Vang | ECON | Unknown | | + + + + + Care Team Providers + +------+ + | Care Medical Sales Associate Name | Role | Phone [...] + + | 11/05/ | Hospital | [facility] 14C [address] | Joseph Cox | | | 2016 - | Encounter | [address] | MD Birgit [address] [facility] | | | | | 14C [facility] | [address] | | | 11/20/ | | [place], [place] | [place], [place] | | | 2016 | | [address] | [address] | | | | | [phone] | [phone] | | | | | | | | | | | | Ana, | | | | | | MD Briana [address] | | | | | | [address] | | | | | | Rd [place], [place] | | | | | | [address] | | | | | | [phone] | | | | | | | | | | | | Carmelina Tucker, | | | | | | JEFFREY-Aimee [address] | | | | | | [address] | | | | | | [place], [place] | | | | | | [address] | | | | | | [phone] | | | | | | | | | | | | Charley Lacey MD | | | | | | Jose Scott MD | | | | | | [address] | | | | | | [address] | | | | | | [place], [place] | | | | | | [address] | | | | | | [phone] | | | | | | | | | | | | Mannie Larkin MD | | | | | | [address] | | | | | | [address] [place], | | | | | | [place] [address] | | | | | | [phone] | | | | | | | | | | | | Tyrone Adrian MD | | | | | | [address] | | | | | | [address] [place], | | | | | | [place] [address] | | | | | | [phone] | | | | | | | [...] did want her to follow up with sales and leasing consultant in [place]. She should continue working towards bariatric surgery wh ich will ultimately put less stress on her heart. -Continue torsemide 80mg BID -Increase potassium supplementation to KCl 40mg BID -Daily weights and strict 2g Na 2L fluid restricted diet -Close followup with Dr. Goodrich (appt on 11/25 at 11AM) -Needs followup with cardiology in [place] #Left lower extremity DVT #Presumed PE Asymmetric left lower extremity pain and swelling was suspicious for DVT and confirmed with duplex ultrasound. Did not pursue CTA as it was decided that it would not environmental change analyst . Started anticoagulation bridge with heparin gtt [...] mouth once daily. , Historical Med CALCIUM [id number]-[id number]-GENIS ORAL Take 2 tablets by mouth two [...] Cyndi Meier Cardiology Congestive Heart Failure at [facility] [id number] Cardiology Additional Instructions/Orders: Diet [...] Good Yosef Segovia MD PGY-1 Internal Medicine [id number] INPATIENT FACULTY PROGRESS NOTE - GM 1 [...] (HCC) 15) Candidal intertrigo Tyrone Adrian MD [facility] 14C credit department manager Division of Hospital Medicine Department of Medicine [facility] [address] [place] [address] [facility] DEPARTMENT: Hosp- [id number] Place of Service: Date of Service: 11/21/2015 CSN: [id number] Modifiers:GC Resident Involved: Yes Suggested CPT: 30693 Discharge Management < 30 minute documented in this encou nter Medications at Time of Discharge + + + +---------+--------+ + | Medication | Sig | Dispensed | Refills | Start | End Date | | | | | | Date | | + + + +---------+--------+ + | CALCIUM | Take 2 tablets by | | 0 | | | | CRB&CSX-R4-VOL66-GEN | mouth two times | | | [...] (HCC) 15) Candidal intertrigo Tyrone Adrian MD [facility] 14C credit department manager Division of Hospital Medicine Department of Medicine [facility] & [address] [place] [address] [facility] DEPARTMENT: [facility]- [id number] Place of Service: Date of Service: 11/20/2015 CSN: [id number] Modifiers:GC Resident Involved: Yes Suggested CPT: 16677 Subsequent Visit Exp Prob Foc/Mod Complexity 25 min olleen Diamond - 016 6:49 AM PDT PHYSICIAN GUIDANCE AND CONTROL SYSTEM ENGINEER STUDENT PROGRESS NOTE FOR EDUCATIONAL PURPOSES ONLY [...] ovarian cysts or menses related. Contact INTERNATIONAL REPRESENTATIVE if TV-US i s ordered. - TV-US [...] - topiramate 200mg po bid JEFFREY Gee-S2 [facility] PA Student Feeding: <2L fluid, Diabetic diet, >2g na Analgesia: APAP, gabapentin, hydrocodone Thromboembolic prophylaxis: Heparin/warfarin Glycemic control: moderate ISS Mobility: Encourage walking and movement Discharge: Expect hospital stay another 2-3 days with PCP FU (Dr. Goodrich) on Saturday 11/25 @ 1 1 am. - Referral to Vocational Training Teacher Code status: FULL Associated attestation - Yosef [...] PCP Yosef Segovia MD PGY-1 Internal Medicine [id number] Tyrone Adrian MD - 11/19/2015 11:51 AM [...] if the PO works) Tyrone Adrian MD [facility] 14C credit department manager Division of Hospital Medicine Department of Medicine [facility] & [address] [place] [address] [facility] DEPARTMENT: Hosp- [id number] Place of Service: - Date of Service: 11/19/2015 CSN: [id number] Modifiers:GC Resident Involved: Yes Suggested CPT: 64856 Subsequent Visit Exp Prob Foc/Mod Complexity 25 min lColleen goff - 016 6:24 AM PDT PHYSICIAN GUIDANCE AND CONTROL SYSTEM ENGINEER STUDENT PROGRESS NOTE FOR EDUCATIONAL PURPOSES ONLY [...] Intake/Output Summary (Last 24 hours) at 11/19/15 0762 Last data filed at 11/19/15 0655 Gross [...] ovarian cysts or menses related. Contact INTERNATIONAL REPRESENTATIVE if TV-US i s ordered. - TV-US [...] - topiramate 200mg po bid JEFFREY Gee-S2 [facility] PA Student Feeding: <2L fluid, Diabetic diet, >2g na Analgesia: APAP, gabapentin, hydrocodone Thromboembolic prophylaxis: Heparin/warfarin Glycemic control: moderate ISS Mobility: Encourage walking and movement Discharge: Expect hospital stay another 3-5 days with diuresis until more euvolemic and R h eart cath can be completed. Code status: FULL Associated attestation - Lorena, Yosef Mart - 11/19/2015 7:38 PM PDTI [...] can. Yosef Segovia MD PGY-1 Internal Medicine [id number] Tyrone Adrian MD - 11/18/2015 2:01 PM [...] (HCC) 15) Candidal intertrigo Tyrone Adrian MD [facility] 14C credit department manager Division of Hospital Medicine Department of Medicine [facility] [address] [place] [address] [facility] DEPARTMENT: Hosp- [id number] Place of Service: [facility] Date of Service: 11/18/2015 CSN: [id number] Modifiers:GC Resident Involved: Yes Suggested CPT: 96475 Subsequent Visit Exp Prob Foc/Mod Complexity 25 [...] plan. Yosef Segovia MD PGY-1 Internal Medicine [id number] signed by Yoesf Segovia at 11/18/2015 11:52 AM Tyrone Currie [...] (HCC) 15) Candidal intertrigo Tyrone Adrian MD [facility] 14C credit department manager Division of Hospital Medicine Department of Medicine [facility] [address] [place] [address] [facility] DEPARTMENT: Hosp- [id number] Place of Service: [facility] Date of Service: 11/17/2015 CSN: [id number] Modifiers:GC Resident Involved: Yes Suggested CPT: 82533 Subsequent Visit Exp Prob Foc/Mod Complexity 25 min olleen Diamond - 016 6:40 AM PDT PHYSICIAN GUIDANCE AND CONTROL SYSTEM ENGINEER STUDENT PROGRESS NOTE FOR EDUCATIONAL PURPOSES ONLY INPATIENT PROGRESS NOTE PATIENT INFORMATION Patient Name: Elzbieta Cristina Date of : 1975 Date of Admission: 11/06/2015 PCP: Fadi Goodrich DO Room/Bed: [facility]/08/08 Attending Provider: Tyrone Adrian [...] Mag 2.3 K 3.6 ASSESSMENT/PLAN Elzbieta Shereen Chunky, a 40 year old morbidly obese woman [...] - topiramate 200mg po bid JEFFREY Gee-S2 [facility] PA Student Feeding: <2L fluid, [...] can Yosef Segovia MD PGY-1 Internal Medicine [id number] Tyrone Adrian MD - 11/16/2015 4:59 PM [...] (HCC) 15) Candidal intertrigo Tyrone Adrian MD [facility] 14C credit department manager Division of Hospital Medicine Department of Medicine [facility] & [address] [place] [address] [facility] DEPARTMENT: Hosp- [id number] Place of Service: Date of Service: 11/16/2015 CSN: [id number] Modifiers:GC Resident Involved: Yes Suggested CPT: 83366 Subsequent Visit Exp Prob Foc/Mod Complexity 25 min lColleen goff - 016 6:43 AM PDT PHYSICIAN GUIDANCE AND CONTROL SYSTEM ENGINEER STUDENT PROGRESS NOTE FOR EDUCATIONAL PURPOSES ONLY [...] assistance of Grisel Pearl. Patient lives i [facility] which is quite a distance to travel to and from [place]. We would ideally arran ge cardiac follow [...] (HCC) 15) Candidal intertrigo Tyrone Adrian MD [facility] 14C credit department manager Division of Hospital Medicine Department of Medicine [facility] [place] [address] [place] [address] [facility] DEPARTMENT: Hosp- [id number] Place of Service: - Date of Service: 11/15/2015 CSN: [id number] Modifiers:GC Resident Involved: Yes Suggested CPT: 56635 Subsequent Visit Detailed/High complexity 35 min lColleen goff - 016 6:33 AM PDT PHYSICIAN GUIDANCE AND CONTROL SYSTEM ENGINEER STUDENT PROGRESS NOTE FOR EDUCATIONAL PURPOSES ONLY [...] last 8 days Intake 9571.5 ml Output 43838 ml Net since Admission -05673.5 ml -25.938 L = 57.0636 lbs Constitutional: [...] - topiramate 200mg po bid JEFFREY Gee-S2 [facility] PA Student Feeding: <2L fluid, [...] can Yosef Segovia MD PGY-1 Internal Medicine [id number] Tyrone Adrian MD - 11/14/2015 4:16 PM [...] (HCC) 15) Candidal intertrigo Tyrone Adrian MD [facility] 14C credit department manager Division of Hospital Medicine Department of Medicine [facility] & [address] [place] [address] [facility] DEPARTMENT: Hosp- [id number] Place of Service: Date of Service: 11/14/2015 CSN: [id number] Modifiers:GC Resident Involved: Yes Suggested CPT: 38474 Subsequent Visit Exp Prob Foc/Mod Complexity 25 min lColleen goff - 016 6:42 AM PDT PHYSICIAN GUIDANCE AND CONTROL SYSTEM ENGINEER STUDENT PROGRESS NOTE FOR EDUCATIONAL PURPOSES ONLY [...] - topiramate 200mg po bid JEFFREY Gee-S2 [facility] PA Student Feeding: <2L fluid, [...] outpatient Yosef Segovia MD PGY-1 Internal Medicine [id number] Tyrone Adrian MD - 11/13/2015 4:06 PM [...] (HCC) 15) Candidal intertrigo Tyrone Adrian MD [facility] 14C credit department manager Division of [facility] Medicine Department of Medicine [facility] [address] [place] [address] [facility] DEPARTMENT: Hosp- [id number] Place of Service: [facility] [id number] Date of Service: 11/13/2015 CSN: [id number] Modifiers:GC Resident Involved: Yes Suggested CPT: 58747 Subsequent Visit Detailed/High complexity 35 min olleen Diamond - 016 6:36 AM PDT PHYSICIAN GUIDANCE AND CONTROL SYSTEM ENGINEER STUDENT PROGRESS NOTE FOR EDUCATIONAL PURPOSES ONLY [...] - topiramate 200mg po bid JEFFREY Gee-S2 [facility] PA Student Feeding: <2L fluid, [...] VTE. Yosef Segovia MD PGY-1 Internal Medicine [id number] Tyrone Adrian MD - 11/12/2015 1:59 PM [...] 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, J WARD MAID, at this point not definitive Plan: continue [...] ongoing 12) Candidal intertrigo Tyrone Adrian MD [facility] 14C credit department manager Division of Hospital Medicine Department of Medicine [facility] [address] [place] [address] [facility] DEPARTMENT: Hosp- [id number] Place of Service: - Date of Service: 11/12/2015 CSN: [id number] Modifiers:GC Resident Involved: Yes Suggested CPT: 57644 Subsequent Visit Detailed/High complexity 35 min lshellColleen - 016 6:31 AM PDT PHYSICIAN GUIDANCE AND CONTROL SYSTEM ENGINEER STUDENT PROGRESS NOTE FOR EDUCATIONAL PURPOSES ONLY [...] - topiramate 200mg po bid JEFFREY Gee-S2 [facility] PA Student Feeding: <2L fluid, [...] disease. Yosef Segovia MD PGY-1 Internal Medicine [id number] Mannie Larkin MD - 11/11/2015 9:19 PM [...] diuresis then RHC Mannie Larkin MD Clinical Metal Rolling Mill Operator, Internal Medicine Pager [phone] ristalColleen martines - 10/25 6:40 AM PDT PHYSICIAN GUIDANCE AND CONTROL SYSTEM ENGINEER STUDENT PROGRESS NOTE FOR EDUCATIONAL PURPOSES ONLY [...] pain Yosef Segovia MD PGY-1 Internal Medicine [id number] Maria Eugenia Leiva RCP - 11/11/2015 6:39 [...] another 5-7 days Mannie Larkin MD Clinical Metal Rolling Mill Operator, Internal Medicine Pager [phone] Yosef Fang - 7:24 AM PDT General [...] plan. Yosef Segovia MD PGY-1 Internal Medicine [id number] signed by Yosef Segovia at 11/10/2015 2:50 [...] R heart cath onc e a bit rotary drier. In terms of AMARA - does not tolerate CPAP historically. Likely CPAP will be ve ry important for her going forward. Will try overnight oximetry here to assess severity. Discharge planning:Anticipate several days in house. I spent >35 min of which >50% was spent in counseling and coordination of care. Briana Perez MD [facility] Division of Hospital Medicine Grisel [...] Maker Primary Surrogate Decision Maker Kenny kim [phone] Advanced Directives Existence of Advanced Directive Reviewed: No- Has Interest (11/09/15 1022) Advanced Directives Reviewed Comments: I gave a copy of advance directives (11/09/15 1022) KRISHNA Huertas NP [facility] 14[address] [facility] [address] [facility] [address] [place] [address] lfelixs Colleen - 6:41 AM PDT PHYSICIAN GUIDANCE AND CONTROL SYSTEM ENGINEER STUDENT PROGRESS NOTE FOR EDUCATIONAL PURPOSES ONLY INPATIENT PROGRESS NOTE PATIENT INFORMATION Patient Name: Elzbieta Cristina Date of : 1975 Date of Admission: 11/06/2015 PCP: Fadi Goodrich DO Room/Bed: [facility]/08/08 Attending Provider: Briana Perez MD Encounter Information [...] acute blood loss and 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 Briana Perez MD [facility] Division of Hospital Medicine Colleen Tello - 11/08/2015 6:26 AM PDT PHYSICIAN GUIDANCE AND CONTROL SYSTEM ENGINEER STUDENT PROGRESS NOTE FOR EDUCATIONAL PURPOSES ONLY [...] po bid (topamax, nerve pain) JEFFREY Gee-S2 [facility] PA Student Feeding: <2L fluid, [...] Hair Md, MSc Internal Medicine PGY2 Pager [phone] Kwadwo Freire - 11/07/2015 2:05 PM PDTTransthoracic [...] plan. Yosef Segovia MD PGY-1 Internal Medicine [id number] lColleen goff - 016 8:43 AM PDT PHYSICIAN GUIDANCE AND CONTROL SYSTEM ENGINEER STUDENT PROGRESS NOTE FOR EDUCATIONAL PURPOSES ONLY [...] the ED by [facility] of Endocrine (Dr. Ranedll Franks) for severe dyspnea on exertion (YO), [...] perfusion. - consider US to evaluate liver (QTZF-eim-llvecypwp fatty liver dz) and look for ascites. [...] did want her to follow up with sales and leasing consultant in [place]. She should continue working towards bariatric surgery wh ich will ultimately put less stress on her heart. -Continue torsemide 80mg BID -Increase potassium supplementation to KCl 40mg BID -Daily weights and strict 2g Na 2L fluid restricted diet -Close followup with Dr. Goodrich (appt on 11/25 at 11AM) -Needs followup with cardiology in [place] #Left lower extremity DVT Asymmetric left lower extremity pain and swelling was suspicious for DVT and confirmed with duplex ultrasound. Did not pursue CTA as it was decided that it would not environmental change analyst . Started anticoagulation bridge with heparin gtt [...] mouth once daily. , Historical Med CALCIUM CRB&AMA-[id number]-GENIS ORAL Take 2 tablets by mouth two [...] Status: Full POLST completed: no Follow-up Appointments: [email or web address] Future Appointments Provider Department Dept Phone Center 11/27/2015 9:00 AM Cyndi Meier Cardiology Congestive Heart Failure at [facility] Cardiology Additional Instructions/Orders: Diet Diabetic (Consistent [...] Good Yosef Segovia MD PGY-1 Internal Medicine [id number] KaleeClay M D - 11/06/2015 8:59 PM [...] on the floor - Kenny lemus - [phone] For a complete HP please see the corporate strategy intern note. Clay Villalta MD Internal Medicine R-2 [id number] obbs, Will Colvin MD - 11/06/2015 8:53 [...] times daily as needed for anxiety. CALCIUM CRB&TOW-Z0-PTJ99-GENIS ORAL Sig: Take 2 tablets by mouth [...] AM Will Beltran MD Internal Medicine, PGY1 [id number] Associated attestation - Briana Perez MD - [...] note for additional details. Briana Perez MD [facility] Division of Hospital Medicine documented [...] Administration IV fluids and meds Procedure location: Unit:[facility] Room: 13 Providers: PICC Nurse name: Sulema Cedeño RN VAT Assisted by Gilda RAUSCH Pre-Procedure Consent: written consent obtained Consent given by: Patient Patient identity confirmed per protocol: Yes Team Pause: Immediatly prior to the procedure a pause per protocol was called. A pause veri fies correct patient, procedure, equipment, technical support technician and site/side marked as required. CLABSI Prevention [...] area Cephalic vein. Ca theter lot number: [id number] with a length of 55 cm was [...] and make recommendations. Please page clinical pharmacist (#[phone]) or call central inpatient pharmacy ([phone]) with questions. Subjective/Objective: Allergies: Amoxicillin; Benadrilina; and [...] We have asked her to find a sales and leasing consultant close to home to follow up with [...] CV Fellow Division of Cardiovascular Medicine [facility] Pager [phone] Chanda Aguilar, Manjeet armD - 11/20/2015 10:42 [...] and make recommendations. Please page clinical pharmacist (#[phone]) or call central inpatient pharmacy ([phone]) with questions. Subjective/Objective: Allergies: Amoxicillin; Benadrilina; and [...] regimen: TBD Thank you, Chanda Pulido PharmD, [facility] Pager [phone] Chanda Aguilar, Ph armD - 11/19/2015 2:27 PM PDT Pharmacy Services: Warfarin Anticoagulation Note Assessment/Plan: Elzbieta Shereen Chunky, a 40 year old female newly started [...] and make recommendations. Please page clinical pharmacist (#[phone]) or call central inpatient pharmacy ([phone]) with questions. Subjective/Objective: Allergies: Amoxicillin; Benadrilina; and [...] Thank you, Chanda Pulido, PharmD, BCPS Pager [phone] Aubrey Stephenson, PharmD - 11/18/2015 8:33 AM [...] and make recommendations. Please page clinical pharmacist (#[phone]) or call central inpatient pharmacy ([phone]) with questions. Subjective/Objective: Allergies: Amoxicillin; Benadrilina; and [...] you for the consult, Maegan Mackay PharmD, [facility] Clinical Pharmacist, Medicine Pager: [phone] Du Stephenson PharmD - 11/17/2015 7:44 AM [...] and make recommendations. Please page clinical pharmacist (#[phone]) or call central inpatient pharmacy ([phone]) with questions. Subjective/Objective: Allergies: Amoxicillin; Benadrilina; and [...] you for the consult, Maegan Mackay, PharmD, [facility] Clinical Pharmacist, Medicine Pager: [phone] ERFoSkye olson PharmD - 11/16/2015 9:18 AM [...] and make recommendations. Please page clinical pharmacist (#[phone]) or call central inpatient pharmacy ([phone]) with questions. Subjective/Objective: Allergies: Amoxicillin; Benadrilina; and [...] and make recommendations. Please page clinical pharmacist (#[phone]) or call central inpatient pharmacy ([phone]) with questions. Subjective/Objective: Allergies: Amoxicillin; Benadrilina; and [...] for presumed cellulitis. Upon arrival to the [facility], she was found to have a DVT so Abx were discontinued and she was placed on a heparin gt t and is currently being transitioned to warfarin. She has also been aggressively diuresed w [facility] IV Lasix and her weight has [...] to Bromocriptine Myalgia and myositis Bipolar disorder ([facility]) Depression Staphylococcal infection Anemia Chronic wound infection of abdomen ([facility]) from 2010 Morbid obesity with body mass index of 70 and over in adult ([facility]) Incisional hernia, incarcerated 2013 Hernia of abdominal wall Stroke ([facility]) Dizziness Numbness Heart burn Nausea Abdominal pain [...] times daily as needed for anxiety. CALCIUM CRB&GPZ-C0-PNR99-GENIS ORAL Sig: Take 2 tablets by mouth [...] History Narrative Updated 11/09/15 She lives in [place] with her mother and her sister (also her caregiver) lives in an artment/[facility]. She has 2 grandchildren (age 4 and 7) who live with her daughter and son-in-law Her boyfriend lives in [place] Family History I have updated the Family [...] last 8 days Intake 9571.5 ml Output 43559 ml Net since Admission -45355.5 ml General Appearance: AAOx3, NAD HEENT: MMM, [...] symptoms is diastolic heart failure and t [facility] would continue to encourage weight loss and [...] would be futile as it would not environmental change analyst. In the interim, we wo uld suggest continued diuresis. Though her volume status is difficult to interpret, her dry weight based on chart review is likely around 390-400lbs, so would diurese until her creatin ine bumps. When she is dry, we will reassess her symptoms. Given how far she lives from [facility] , it would not be [...] Loza MD Internal Medicine Resident, PGY2 Pager: [phone] Attending Note I have seen and examined [...] options for follow-up are. Odette Naylor MD Cna, [facility] [place] [facility] ERFoSkye olson, [...] and make recommendations. Please page clinical pharmacist (#[phone]) or call central inpatient pharmacy ([phone]) with questions. Subjective/Objective: Allergies: Amoxicillin; Benadrilina; and [...] and make recommendations. Please page clinical pharmacist (#[phone]) or call central inpatient pharmacy ([phone]) with questions. Subjective/Objective: Allergies: Amoxicillin; Benadrilina; and [...] and make recommendations. Please page clinical pharmacist (#[phone]) or call central inpatient pharmacy ([phone]) with questions. Subjective/Objective: Allergies: Amoxicillin; Benadrilina; and [...] and make recommendations. Please page clinical pharmacist (#[phone]) or call central inpatient pharmacy ([phone]) with questions. Subjective/Objective: Allergies: Amoxicillin; Benadrilina; and [...] of note Johanna Trimble PharmD PGY-1 Clinical Technology Teacher Pager #[phone] Edson Chao PharmD - 11/10/2015 6:28 AM [...] and make recommendations. Please page clinical pharmacist (#[phone]) or call central inpatient pharmacy ([phone]) with questions. Subjective/Objective: Allergies: Amoxicillin; Benadrilina; and [...] of note Johanna Trimble PharmD PGY-1 Clinical Technology Teacher Pager #[phone] oSkye olson, Ph armD - 11/09/2015 12:21 [...] and make recommendations. Please page clinical pharmacist (#[phone]) or call central inpatient pharmacy ([phone]) with questions. Subjective/Objective: Allergies: Amoxicillin; Benadrilina; and [...] some left SF plus cream 1.1% Oral [place] 2 - 3 times per day. Do [...] syndrome. Patient mentioned mainly filling prescriptions at [facility] and her pain prescriptions at [facility]. Called [facility] to verify prescription fill history, spoke to jc potter. Mention [facility] has only filled eletriptan on 07/22/15. There was no fill history of alprazolam or potass ium filled at [facility]. Tried to contact [facility] to verify medication fill history. Was not able to reach the [facility] dept (kept getting send to styrene dehydration reactor operator who is unavailable). Contacted home store to be tr ansferred to pharmacy department and resulted in the same styrene dehydration reactor operator who is unavailable. Faxe d a [...] a 40 year old female admitted to [facility] for DVT and heart failure exacerbation Pharmacy Preferences: [facility] [address] [place] [address] Hours: 9am-7pm Mon-fri / 9am-6pm Sat / Closed Sun E-Prescribing: Yes E-Prescribing Control Substances: Yes [facility] #[id number] [address] [place] [address] Hours: 9am-7pm Mon-fri / 9am-6pm Sat / [...] information contact Kallie Heard PharmD Candidate 2016 [employer] Pager # [phone] Associated attestation - Maegan Mackay PharmD - 11/08/2015 3:32 PM PDTI have review ed and agree with the director of pharmacy's documentation and have documented any additions or exceptions. Maegan Mackay PharmD, [facility] Clinical Pharmacist, Medicine Pager: [phone] Skye Goyal PharmD - 11/08/2015 7:47 AM [...] and make recommendations. Please page clinical pharmacist (#[phone]) or call central inpatient pharmacy ([phone]) with questions Subjective/Objective: Allergies: Amoxicillin; Benadrilina; and [...] and make recommendations. Please page clinical pharmacist (#[phone]) or call central inpatient pharmacy ([phone]) with questions Subjective/Objective: Elzbieta Cristina, a 40 [...] 500 mg by mouth once daily. CALCIUM [id number]-[id number]-GENIS ORAL, Take 2 tablets by mouth two [...] 37.5 mg by mouth before breakfast. Ad rental coordinator before breakfast.) piroxicam 20 mg Oral capsule, [...] times daily as needed for anxiety. CALCIUM CRB&[id number]-[id number]-GENIS ORAL 11/06/2015 at Unknown time Yes Yes [...] regarding this information please contact pharmacy, pager [phone] Luca Goodman Jr., PharmD, BCPS Clinical Pharmacist [facility] Pharmacy Services Benito Kumar Phar [...] of vancomycin levels. Please page clinical pharmacist ([phone]) or call central inpatient pharmacy ([phone]) with qu estions. Actual body weight: Weight: 214.551 kg (473 lb) (11/06/15 1340) Labs: CREATININE PLASMA (LAB) (mg/dL) Date Value 11/06/2015 0.82 BUN, PLASMA (LAB) (mg/dL) Date Value 11/06/2015 16 WHITE CELL COUNT (K/cu mm) Date Value 11/06/2015 14.02* Pertinent cultures/sensitivities: No positive culture results in EPIC Thank you for the consult, Benito Fernando, Pharm.D. [place] [phone] documented in this encounter ED Notes Celina Cummings RN - 11/07/2015 11:05 PM PDTTransport team in ED obs to transfer pt [facility]. Pt aware of plan of [...] are based on published values utilizing a Roadster ar TSH assay, and should be interpreted [...] Abnormality Status --------- ------ CBC AND AUTO DIFF[[id number]] Abnormal Final result Please view results for these tests on the individual orders. RAINBOW HOLD TUBE - BLUE TOP CBC ONLY Narrative: The following orders were created for panel order CBC ONLY. Procedure Abnormality Status --------- ------ CBC (HEMOGRAM) ONLY[[id number]] Abnormal Final result Please view results for [...] or Moderate to Gross Hemolysis CULTURE, URINE [facility] CAPILLARY BLOOD GLUCOSE (NO CHG), [...] Mcghee RN - 11/07/2015 12:52 PM PDTEcho [employer] Tucker notified that pt now has [...] Rachele Mcghee RN - 11/07/2015 11:16 AM [id number]:Pt complaining of pain at IV site, pt reports she is a hard stick, IV access att empted x1 by KELSIE Garcia. Entered order for IV therapy consult for line placement, heparin and labs. 1115: echo here for test, IV access needed, called [facility], they will call IV therapy to come and eval pt. Radha Neumann RN - 11/07/2015 7:28 AM PDTUlt [employer] called inquiring on repeat imagining that was [...] Decreased mobility 06/16/2013 Hypoventilation associated with obesity ([facility]) 06/16/2013 PCOS (polycystic ovarian syndrome) 06/16/2013 Ventral hernia 06/16/2013 Type 2 diabetes mellitus ([facility]) 04/14/2013 AMARA (obstructive sleep apnea) 04/14/2013 Overview Note: Cannot tolerate CPAP Edema 04/14/2013 GERD (gastroesophageal reflux disease) 04/14/2013 Morbid obesity ([facility]) 11/12/2012 Overview Note: Lifetime max: 495 lbs Hernia 11/05/2012 Past Medical History Diagnosis Date Neck pain Insomnia Allergic rhinitis Lymphedema Diverticulitis of colon Hemorrhoids UTI (urinary tract infection) Tinea corporis Osteoarthritis of knee TIA (transient ischemic attack) due to Bromocriptine Myalgia and myositis Bipolar disorder ([facility]) Depression Staphylococcal infection Anemia Chronic wound infection of abdomen ([facility]) from 2010 Morbid obesity with body mass index of 70 and over in adult ([facility]) Incisional hernia, incarcerated 2012 Hernia of abdominal wall Stroke ([facility]) Dizziness Numbness Heart burn Nausea Abdominal pain [...] times daily as needed for anxiety. CALCIUM CRB&AAF-[id number]-JIZ37-GENIS ORAL 11/06/2015 at Unknown time Yes Yes [...] is negative except as stated in the [facility] ED Triage Vitals BP Temp Pulse [...] PLASMA (LAB) 0.82 0.60-1.10 mg/dL EGFR - [place] >60 >60 mL/min EGFR NON -[place] >60 >60 mL/min SODIUM, PLASMA (LAB) 139 [...] EXCHANGE Result Value Ref Range DELTA PID [id number] 40-year-old female presents to the emergency department [...] of congestive heart failure with reports of OY and orthopnea. This d iagnosis is unclear [...] transferred to hospital bed for comfort. Katherine Perze MD - 11/06/2015 10:42 PM PDTFo rmatting [...] [facility], JEFFREY Aguirre - Admitted to , boarding, to transfer when bed available Katherine Orozco MD Ivette Phan - 10/25 9:12 PM PDTChart reviewed for admission. Ivette Diallo RN corporation lawyer/Evening Admission RN Pager: [phone] Mary Monge RN - 8:49 PM PDTPt requesting to eat, will ask MD.Electronically signed by KELSIE Cee 11/06/2015 8:49 PM PDTBriana Barrios RN - 11/06/2015 8:12 PM PDTMD [facility] at [facility]. ridger Hernandez RN - 11/06/2015 1:41 PM [...] No need for discharge planning assistance from [facility] Nurse Care Management anticipated at this time. Please notify CM if any RN Care Management d/c needs arise. KELSIE Braswelldirector park RN Inpatient Care Management [address] General Medicine [phone] Pager [phone] andoff - Stefany Burkett RN - 11/21/2015 4:48 AM PDTNursing Handoff Patient Daily Goal: Not stated (11/20/15744) Patient Specific Preferences: na (11/20/15744) [facility] IP NURSE HANDOFF: De La [...] stated (11/20/15744) Patient Specific Preferences: na (11/20/15744) [facility] IP NURSE HANDOFF: De La Curz hospital course events: >> Presents with severe [...] PDTNursing Handoff Patient Daily Goal: sleep (11/18/15 4128) Patient Specific Preferences: 1 (11/16/152223) [facility] IP NURSE HANDOFF: De La [...] sleep (11/18/152157) Patient Specific Preferences: 1 (11/16/152223) [facility] IP NURSE HANDOFF: De La [...] (11/18/15 0802) Patient Specific Preferences: 1 (11/16/15 3475) [facility] IP NURSE HANDOFF: De La [...] correct (11/16/152223) Patient Specific Preferences: 1 (11/16/152223) [facility] IP NURSE HANDOFF: De La [...] correct (11/16/152223) Patient Specific Preferences: 1 (11/16/152223) [facility] IP NURSE HANDOFF: De La [...] Skin care in the afternoon (11/16/15 0738) [facility] IP NURSE HANDOFF: De La [...] 000) Patient Specific Preferences: n/a (11/14/15 0800) [facility] IP NURSE HANDOFF: De La [...] 000) Patient Specific Preferences: n/a (11/14/15 0800) [facility] IP NURSE HANDOFF: De La [...] next draw with morning labs, [facility] --continue to assess pain level and offer pain med Q4 hrs --no discharge until next week, continues to diureses with IV lasix --strick I/O Arianne - Lanette Nolan RN - 11/15/2015 3:31 AM PDTNursing Handoff Patient Daily Goal: Shower today (11/14/15 0800) Patient Specific Preferences: n/a (11/14/15 08) [facility] IP NURSE HANDOFF: De La [...] 0800) Patient Specific Preferences: n/a (11/14/15 08) [facility] IP NURSE HANDOFF: De La [...] No need for discharge planning assistance from [facility] Nurse Care Management a nticipated at this time. Please see MD notes, After Visit Summary (discharge instructions), and any additional ancillary consultation notes for further discharge needs or f/u needs P lease notify CM if any RN Care Management d/c needs arise. KELSIE Braswelldirector park RN Inpatient Care Management [address] General Medicine [phone] Pager [phone] andamy - Cesario Kaur RN - 11/14/2015 3:10 AM PDTNursing Handoff Patient Daily Goal: To go for a walk today (11/13/15 0900) Patient Specific Preferences: Ordered meal. Took shower today. (11/08/151950) [facility] IP NURSE HANDOFF: De La [...] Preferences: Ordered meal. Took shower today. (11/08/151950) [facility] IP NURSE HANDOFF: De La [...] Preferences: Ordered meal. Took shower today. (11/08/151950) [facility] IP NURSE HANDOFF: De La [...] Preferences: Ordered meal. Took shower today. (11/08/151950) [facility] IP NURSE HANDOFF: De La [...] Preferences: Ordered meal. Took shower today. (11/08/151950) [facility] IP NURSE HANDOFF: De La [...] very e ffective. RESTORATIVE MEASURES/SELF-MANAGEMENT Patient Target: Chunky will continue to ambulate to the bathroom [...] Preferences: Ordered meal. Took shower today. (11/08/151950) [facility] IP NURSE HANDOFF: De La [...] Preferences: Ordered meal. Took shower today. (11/08/151950) [facility] IP NURSE HANDOFF: De La [...] Preferences: Ordered meal. Took shower today. (11/08/151950) [facility] IP NURSE HANDOFF: De La [...] to Bromocriptine Myalgia and myositis Bipolar disorder ([facility]) Depression Staphylococcal infection Anemia Chronic wound infection of abdomen ([facility]) from 2010 Morbid obesity with body mass index of 70 and over in adult ([facility]) Incisional hernia, incarcerated 2012 Hernia of abdominal wall Stroke ([facility]) Dizziness Numbness Heart burn Nausea Abdominal pain [...] reports this exercise was a 6/10 RPE. [facility] BASIC MOBILITY Difficulty turning over in bed [...] w/railing 4 - None - Modified Independent/Independent [facility] Basic Mobility Total Score 21 *Note: activity was not directly observed and scoring is based on skills and deficits [facility] Interpretation of [facility] Short Form - Basic Mobility: CMS Modifier [...] care, role of PT, pt requested a wtmmpik-ty-vjpiroug plan. Pt educated on aiming for 3-5 [...] PDTNursing Handoff Patient Daily Goal: PICC (11/09/15 3185) Patient Specific Preferences: Ordered meal. Took shower today. (11/08/151950) [facility] IP NURSE HANDOFF: De La [...] utilize HF tools available to her through [facility] with new HF diag nosis [...] Preferences: Ordered meal. Took shower today. (11/08/151950) [facility] IP NURSE HANDOFF: De La [...] utilize HF tools available to her through [facility] with new HF diag nosis [...] Preferences: Ordered meal. Took shower today. 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 Appetite and PO int americo are good. Following. Dione Andre RD,LD Pager# [phone] Phone: [phone] lan of Care - Michaelle Lyles RN [...] Information Primary Emergency Contact: KENNY PADILLA Address: [address] [place] [id number] Relation: Parent Secondary Emergency Contact: Ellie Vang [...] Low functioning independent (some assist?) Insurance/Funding: MEDICAID [employer] [place] [employer] Equipment Currently used at [...] f/u needs not requiring CM intervention. KELSIE Braswelldirector park MICHAELLE CARROLL RN Inpatient Care Management [address] General Medicine [phone] Pager [phone] signed by Michaelle Carroll RN at 11/08/2015 1:43 PM PDTHandoff - Fide Rodríguez RN - 11/08/2015 12:50 AM PDTNursing Handoff Patient Daily Goal: Get some sleep and take a shower in the morning (11/07/152331) Patient Specific Preferences: Cluster care. Get settled in new room. (11/07/152331) [facility] IP NURSE HANDOFF: De La [...] and have decreased anxiety with transfer to [facility] from ED obs Progress to Target: [...] home. Walke r provided to her on [facility]. She states that she does have Caregivers at home that do help her with specific task, such as skin are and trimming her toenails. HEALTH PROMOTION Patient Target: Elzbieta will understand and utilize HF tools available to her through [facility] with new HF diag nosis Progress to Target: Improving As evidenced by: HF packet given to Elzbieta and first weight recorded. Patient states she will look over it tomorrow as it was late when she arrived to [facility]. Encouraged her to ask questions related [...] JOSEPH COX MD Department of Emergency Medicine [facility] ransfer Note - Deepthi Garcia [...] | 2019 | Visit | | [address] [facility] [address] | | | | | | [address] | | | | | | [place], [place] | | | | | | [address] | | | | | | [phone] | | | | | | | [...] | + +--------+ + + + | MANUELA CEDILLOSTICK ONLY | Urgent | 11/16/2015 | | [...] [facility] | [address] | [place], [place] | | | [place] POINT OF CARE | [facility] | [address] | | | TESTS | | | [...] [facility] | [address] | [place] [address] | | | LYDIA RANGEL | LESLY [...] [facility] | [address] | [place] [address] | | | SERVICES, CORE | PARK [...] | | | LABORATORY | | | [place] | | | SERVICES, | | | [...] [facility] | [address] | [place] [address] | | | LYDIA RANGEL | LESLY [...] (H) | 60 - 99 mg/dL | [facility] - | | | GLUCOSE, [...] [facility] | [address] | [place], [place] | | | JUSTINE DAWN OF [facility] | [address] | [address] | | | TESTS | | | [...] [facility] | [address] | [place], [place] | | | JUSTINE DAWN OF CARE | [facility] | [address] | | | TESTS | | | [...] [facility] | [address] | [place], [place] | | | JUST[place]WN OF CARE | [facility] | [address] | | | TESTS | | | [...] (H) | 60 - 99 mg/dL | [facility] - | | | GLUCOSE, [...] [facility] | [address] | [place], [place] | | | [place] POINT OF CARE | [address] | [address] | | | TESTS | | | [...] [facility] | [address] | [place], [place] | | | JUSTINE DAWN OF JAKY | [facility] | [address] | | | TESTS | | | [...] mech. valves (2.5 - 3.5) INR | YLDIA RANGEL | + + + + + + + + | Performing | Address | City/State/Zipcode | Phone Number | | Organization | | | | + + + + + | [facility] | [address] | [place] [address] | | | LYDIA RANGEL | LESLY [...] + + + + + | [facility] | [address] | [place] [address] | | | SERVICES, CORE | [address] | | | + + + + + MAGNESIUM, PLASMA (11/20/2015 6:00 AM PDT) + +-------+ + + + | Component | Value | Ref Range | Performed | Pathologist | | | | | At | Signature | + +-------+ + + + | MAGNESIUM,P | 2.5 | 1.8 - 2.5 mg/dL | [facility] [...] [facility] | [address] | [place] [address] | | | CLAIRE, LYDIA | LESLY [...] | | | LABORATORY | | | [place] | | | SERVICES, | | | [...] + + + + + | [facility] | [address] | [place] [address] | | | SERVICES, CORE | LESLY [...] + + | [facility] | [address] | [place], [place] | | | JUSTINE DAWN OF CARE | [address] | [address] | | | TESTS | | | [...] [facility] | [address] | [place], [place] | | | [facility] GRANDY [facility] | [facility] | [address] | | | TESTS | | | [...] [facility] | [address] | [place] [address] | | | CLAIRE, LYDIA | [address] | | | + + + + + MAGNESIUM, PLASMA (11/19/2015 2:20 PM PDT) + +-------+ + + + | Component | Value | Ref Range | Performed | Pathologist | | | | | At | Signature | + +-------+ + + + | MAGNESIUM,P | 2.2 | 1.8 - 2.5 mg/dL | [facility] | | | LASMA | | | [...] | + + + + + | [facility] | [address] | [place] [address] | | | SERVICES, CORE | LESLY [...] | | | LABORATORY | | | [place] | | | SERVICES, | | | [...] [facility] | [address] | [place] [address] | | | SERVICES, CORE | LESLY [...] (H) | 60 - 99 mg/dL | [facility] - | | | GLUCOSE, [...] + + + | [facility] | [address] | [place], [place] | | | [place] POINT OF CARE | [address] | [address] | | | TESTS | | | [...] [facility] | [address] | [place], [place] | | | [place] POINT OF CARE | [facility] | [address] | | | TESTS | | | [...] - [facility] | [address] | [place], [place] | | | [place] POINT OF CARE | [address] | [address] | | | TESTS | | | [...] + + + | [facility] | [address] | [place], [place] | | | [place] POINT OF [facility] | [address] | [address] | | | TESTS | | | [...] [facility] | [address] | [place] [address] | | | SERVICES, CORE | PARK [...] | + + + + + | [facility] | [address] | [place] [address] | | | SERVICES, CORE | LESLY [...] [facility] | [address] | [place], [place] | | | JUSTINE DAWN OF CARE | [address] | [address] | | | TESTS | | | [...] [facility] | [address] | [place], [place] | | | [place] POINT OF CARE | [address] | [address] | | | TESTS | | | [...] + | [facility] | [address] [facility] [address] | [place] [address] | | | SERVICES, CORE | PARK [...] [facility] | [address] | [place] [address] | | | SERVICES, CORE | PARK [...] + + + + + | [facility] | [address] | [place] [address] | | | SERVICES, CORE | PARK [...] | | | LABORATORY | | | [place] | | | SERVICES, | | | [...] + + + + + | [facility] | [address] | [place] [address] | | | SERVICES, CORE | PARK [...] [facility] | [address] | [place], [place] | | | JUSTINE DAWN OF CARE | [address] | [address] | | | TESTS | | | [...] [facility] | [address] | [place], [place] | | | JUSTINE DAWN OF CARE | [facility] | [address] | | | TESTS | | | [...] (H) | 60 - 99 mg/dL | [facility] - | | | GLUCOSE, [...] [facility] | [address] | [place], [place] | | | [place] POINT OF CARE | [address] | [address] | | | TESTS | | | [...] [facility] | [address] | [place], [place] | | | JUSTINE DAWN OF [facility] | [address] | [address] | | | TESTS | | | [...] [facility]ENTER [facility] | [address] | [place] [address] | | | LYDIA RANGEL | LESLY [...] [facility] | [address] | [place] [address] | | | SERVICES, CORE | PARK [...] + + + + + | [facility] | [address] [facility] [address] | [place] [address] | | | SERVICES, CORE | PARK [...] | | | LABORATORY | | | [place] | | | SERVICES, | | | [...] [facility] | [address] | [place] [address] | | | SERVICES, CORE | PARK [...] [facility] | [address] | [place] [address] | | | SERVICES, CORE | PARK [...] | [facility] | [address] | [place] [address] | | | SERVICES, CORE | LESLY [...] | Performing | Address | City/State/[facility] | Phone Number | | Organization | | | | + + + + + | [facility] | [address] | [place], [place] | | | JUSTINE DAWN OF JAKY | [facility] | [address] | | | TESTS | | | [...] [facility] | [address] | [place], [place] | | | JUSTINE DAWN OF J[place]Y | [facility] | [address] | | | TESTS | | | [...] (H) | 60 - 99 mg/dL | [facility] - | | | GLUCOSE, [...] [facility] | [address] | [place], [place] | | | [place] POINT OF CARE | [address] | [address] | | | TESTS | | | [...] + + + + + | [facility] | [address] [facility] [address] | [place] [address] | | | SERVICES, CORE | LESLY [...] [facility] | [address] | [place], [place] | | | JUSTINE DAWN OF CARE | [address] | [address] | | | TESTS | | | [...] [facility] | [address] | [place] [address] | | | SERVICES, CORE | PARK [...] [facility] | [address] | [place] [address] | | | SERVICES, CORE | PARK [...] | | | LABORATORY | | | [place] | | | SERVICES, | | | [...] [facility]ENTER [facility] | [address] | [place] [address] | | | SERVICES, CORE | [address] | | | + + + + + MAGNESIUM, PLASMA (11/16/2015 3:08 AM PDT) + +-------+ + + + | Component | Value | Ref Range | Performed | Pathologist | | | | | At | Signature | + +-------+ + + + | MAGNESIUM,P | 2.3 | 1.8 - 2.5 mg/dL | [facility] [...] | [facility] | [address] | [place] [address] | | | SERVICES, CORE | PARK [...] [facility] | [address] | [place], [place] | | | [place] POINT OF CARE | [address] | [address] | | | TESTS | | | [...] + + + + + | [facility] | [address] | [place] [address] | | | SERVICES, LYDIA | LESLY [...] [facility] | [address] | [place], [place] | | | [place] POINT OF CARE | [address] | [address] | | | TESTS | | | [...] + + + + + | [facility] | [address] | [place] [address] | | | SERVICES, CORE | LESLY [...] [facility] | [address] | [place], [place] | | | JUSTINE DAWN OF JAKY | [address] | [address] | | | TESTS | | | [...] + + | [facility] | [address] | [place], [place] | | | [place] POINT OF [facility] | [address] | [address] | | | TESTS | | | [...] [facility] | [address] | [place] [address] | | | CLAIRE, CORE | PARK [...] [facility] | [address] | [place] [address] | | | SERVICES, CORE | LESLY [...] [facility]ENTER [facility] | [address] | [place] [address] | | | SERVICES, CORE | PARK [...] + + + + + | [facility] | [address] | [place] [address] | | | SERVICES, CORE | LESLY [...] | | | LABORATORY | | | [place] | | | SERVICES, | | | [...] [facility] | [address] | [place] [address] | | | SERVICES, CORE | LESLY [...] (H) | 60 - 99 mg/dL | [facility] - | | | GLUCOSE, [...] [facility] | [address] | [place], [place] | | | [place] POINT OF CARE | [address] | [address] | | | TESTS | | | [...] + + + | [facility] | [address] | [place] [address] | | | SERVICES, LYDIA | LESLY [...] [facility] | [address] | [place], [place] | | | JUSTINE DAWN OF J[place] | [facility] | [address] | | | TESTS | | | [...] (H) | 60 - 99 mg/dL | [facility] - | | | GLUCOSE, [...] [facility] | [address] | [place], [place] | | | [place] POINT OF CARE | [address] | [address] | | | TESTS | | | [...] + + + + + | [facility] | [address] [facility] [facility] [address] | [place] [address] | | | SERVICES, LYDIA | LESLY [...] [facility] | [address] | [place], [place] | | | H[place], POINT OF CARE | [address] | [address] | | | TESTS | | | [...] [facility] | [address] | [place] [address] | | | SERVICES, CORE | [address] | | | + + + + + HEPARIN, EITHER STANDARD / LMW, BLOOD (11/14/2015 4:19 AM PDT) + +-------+ + + + | Component | Value | Ref Range | Performed | Pathologist | | | | | At | Signature | + +-------+ + + + | HEPARIN, | 0.73 | U/mL | [facility]I | | | STD LMW | | [...] [facility] | [address] | [place] [address] | | | SERVICES, LYDIA | PARK [...] + + + + + | [facility] | [address] | [place] [address] | | | SERVICES, CORE | LESLY [...] | | | LABORATORY | | | [place] | | | SERVICES, | | | [...] | [facility] | [address] | [place] [address] | | | SERVICES, CORE | PARK [...] AMES | [address] | [place], [place] | | | JUSTINE DAWN OF JAKY | [facility] | [address] | | | TESTS | | | [...] [facility] | [address] | [place], [place] | | | JUSTINE DAWN OF CARE | [facility] | [address] | | | TESTS | | | [...] (H) | 60 - 99 mg/dL | [facility] - | | | GLUCOSE, [...] [facility] | [address] | [place], [place] | | | [place] OF [facility] | [address] | [address] | | | TESTS | | | [...] AMES | [address] | [place], [place] | | | JUSTINE DAWN OF JAKY | [facility] | [address] | | | TESTS | | | [...] [facility] | [address] | [place] [address] | | | SERVICES, CORE | PARK [...] [facility] | [address] | [place] [address] | | | SERVICES, LYDIA | PARK [...] + + + + + | [facility] | [address] | [place] [address] | | | SERVICES, CORE | PARK [...] + + + + + | [facility] | [address] | [place] [address] | | | SERVICES, CORE | LESLY [...] [facility] | [address] | [place] [address] | | | LYDIA RANGEL | PARK [...] | | | LABORATORY | | | [place] | | | SERVICES, | | | [...] + + + + + | [facility] | [address] | [place] [address] | | | LYDIA RANGEL | LESLY [...] [facility] | [address] | [place] [address] | | | SERVICES, CORE | PARK [...] | | | LABORATORY | | | [place] | | | SERVICES, | | | [...] | [facility] | [address] | [place] [address] | | | LYDIA RANGEL | LESLY [...] [facility] | [address] | [place], [place] | | | L[place] POINT OF CARE | [facility] | [address] | | | TESTS | | | [...] (H) | 60 - 99 mg/dL | [facility] - | | | GLUCOSE, [...] AMES | [address] | [place], [place] | | | JUSTINE DAWN OF CARE | [facility] | [address] | | | TESTS | | | [...] [facility] | [address] | [place], [place] | | | JUSTINE [facility]WN OF [place] | [address] | [address] | | | TESTS | | | [...] AMES | [address] | [place], [place] | | | [place] [facility] | [address] | [address] | | | TESTS | | | [...] [facility] | [address] | [place] [address] | | | SERVICES, CORE | PARK [...] + + + + + | [facility] | [address] | [place] [address] | | | SERVICES, CORE | LESLY [...] [facility] | [address] | [place] [address] | | | SERVICES, CORE | PARK [...] | | | LABORATORY | | | [place] | | | SERVICES, | | | [...] + + + | [facility] | [address] | [place] [address] | | | SERVICES, CORE | PARK [...] [facility] | [address] | [place], [place] | | | JUSTINE DAWN OF CARE | [address] | [address] | | | TESTS | | | [...] [facility] | [address] | [place] [address] | | | SERVICES, CORE | PARK [...] [facility] | [address] | [place] [address] | | | SERVICES, CORE | PARK [...] [facility] | [address] | [place] [address] | | | SERVICES, CORE | PARK [...] [facility] | [address] | [place] [address] | | | SERVICES, LYDIA | LESLY [...] [facility] | [address] | [place], [place] | | | JUSTINE DAWN OF CARE | [address] | [address] | | | TESTS | | | [...] (H) | 60 - 99 mg/dL | [facility] - | | | GLUCOSE, [...] AMES | [address] | [place], [place] | | | JUSTINE DAWN OF JAKY | [address] | [address] | | | TESTS | | | [...] + + + | [facility] | [address] | [place] [address] | | | LYDIA RANGEL | LESLY [...] + | [facility] | [address] | [place], [place] | | | [place] OF [facility] | [address] | [address] | | | TESTS | | | [...] + | [facility] | [address] | [place] [address] | | | SERVICES, CORE | PARK [...] + + + + + | [facility] | [address] | [place] [address] | | | SERVICES, CORE | LESLY [...] [facility] | [address] | [place] [address] | | | SERVICES, CORE | PARK [...] | | | LABORATORY | | | [place] | | | SERVICES, | | | [...] | + + + + + | [facility] [facility] | [address] | [place] [address] | | | SERVICES, CORE | LESLY [...] [facility] | [address] | [place], [place] | | | JUSTINE DAWN OF CARE | [address] | [address] | | | TESTS | | | [...] [facility] | [address] | [place] [address] | | | LYDIA RANGEL | LESLY [...] (H) | 60 - 99 mg/dL | [facility] - | | | GLUCOSE, [...] [facility] | [address] | [place], [place] | | | [place]INT OF CARE | [address] | [address] | | | TESTS | | | [...] AMES | [address] | [place], [place] | | | JUSITNE DAWN OF CARE | [facility] | [address] | | | TESTS | | | [...] | [facility] | [address] | [place] [address] | | | SERVICES, [facility] | [address] | [...] - [facility] | [address] | [place], [place] | | | [place] POINT OF CARE | [address] | [address] | | | TESTS | | | [...] + + + + + | [facility] | [address] | [place] [address] | | | SERVICES, CORE | PARK [...] + + + + + | [facility] | [address] | [place] [address] | | | SERVICES, CORE | LESLY [...] [facility] | [address] | [place] [address] | | | SERVICES, CORE | PARK [...] | | | LABORATORY | | | [place] | | | SERVICES, | | | [...] + + + | [facility] | [address] | [place] [address] | | | SERVICES, CORE | LESLY [...] + + + + + | [facility] | [address] | [place] [address] | | | SERVICES, CORE | PARK [...] [facility] | [address] | [place] [address] | | | SERVICES, CORE | LESLY [...] (H) | 60 - 99 mg/dL | [facility] - | | | GLUCOSE, [...] AMES | [address] | [place], [place] | | | JUSTINE DAWN OF [facility] | [address] | [address] | | | TESTS | | | [...] [facility] | [address] | [place], [place] | | | JUSTINE DAWN OF CARE | [address] | [address] | | | TESTS | | | | + + + + + X-RAY PORTABLE CHEST PICC LINE CHECK (11/09/2015 3:12 PM PDT) + + + + + + | Component | Value | Ref Range | Performed | Pathologist | | | | | At | Signature | + + + + + + | XRAY | EXAM: GA CHEST PICC LINE | | | | [...] meds | | | Procedure location: Unit:[facility] Room: 13 Providers: PICC Nurse | [...] | pause verifies correct patient, procedure, equipment, technical support technician | | | and site/side [...] | area Cephalic vein. Catheter lot number: [id number] with a length of | | | [...] [facility]ES | [address] | [place], [place] | | | JUSTINE DAWN OF JAKY | [facility] | [address] | | | TESTS | | | [...] [facility] | [address] | [place] [address] | | | SERVICES, CORE | LESLY [...] (H) | 60 - 99 mg/dL | [facility] - | | | GLUCOSE, [...] AMES | [address] | [place], [place] | | | JUSTINE DAWN OF CARE | [address] | [address] | | | TESTS | | | [...] | + + + + + | [facility] | [address] | [place] [address] | | | LYDIA RANGEL | LESLY [...] | [facility] | [address] | [place] [address] | | | CLAIRE, LYDIA | PARK [...] [facility] | [address] | [place] [address] | | | SERVICES, CORE | PARK [...] | | | LABORATORY | | | [place] | | | SERVICES, | | | [...] the MDRD equation recommended by the | [facility] | | National Kidney Disease [...] | [facility] | [address] | [place] [address] | | | LYDIA RANGEL | LESLY [...] - [facility] | [address] | [place], [place] | | | [place]INT OF CARE | [address] | [address] | | | TESTS | | | [...] AMES | [address] | [place], [place] | | | JUSTINE DAWN OF CARE | [address] | [address] | | | TESTS | | | [...] [facility] | [address] | [place] [address] | | | SERVICES, CORE | LESLY [...] | + + + + + | [facility] [facility] | [address] | [place] [address] | | | SERVICES, CORE | LESLY [...] + + + + + | [facility] | [address] | [place] [address] | | | SERVICES, LYDIA | LESLY [...] [facility] | [address] | [place], [place] | | | JUSTINE DAWN OF JAKY | [facility] | [address] | | | TESTS | | | [...] (H) | 60 - 99 mg/dL | [facility] - | | | GLUCOSE, [...] [facility]ES | [address] | [place], [place] | | | [place]INT OF CARE | [address] | [address] | | | TESTS | | | [...] [facility] | [address] | [place], [place] | | | JUSTINE DAWN OF JAKY | [facility] | [address] | | | TESTS | | | [...] | [facility] | [address] | [place] [address] | | | SERVICES, LYDIA | PARK [...] [facility] | [address] | [place] [address] | | | SERVICES, CORE | PARK [...] [facility] | [address] | [place] [address] | | | CLAIRE, CORE | PARK [...] [facility] | [address] | [place] [address] | | | LYDIA RANGEL | LESLY [...] [facility] | [address] | [place] [address] | | | SERVICES, CORE | PARK [...] | | | LABORATORY | | | [place] | | | SERVICES, | | | [...] the MDRD equation recommended by the | [facility] | | National Kidney Disease [...] [facility] | [address] | [place] [address] | | | LYDIA RANGEL | LESLY [...] + + + + + | [facility] | [address] | [place] [address] | | | LYDIA RANGEL | LESLY [...] (H) | 60 - 99 mg/dL | [facility] - | | | GLUCOSE, [...] | [facility] | [address] | [place], [place] | | | [place]INT OF CARE | [address] | [address] | | | TESTS | | | [...] + + + + + | [facility] | [address] | [place] [address] | | | SERVICES, CORE | LESLY [...] [facility] | [address] | [place], [place] | | | [place]INT OF CARE | [address] | [address] | | | TESTS | | | [...] (H) | 60 - 99 mg/dL | [facility] - | | | GLUCOSE, [...] [facility] | [address] | [place], [place] | | | JUSTINE DAWN OF CARE | [address] | [address] | | | TESTS | | | [...] + | [facility] | [address] | [place], [place] | | | CARDIOLOGY | [address] | [address] | | + + + + + [...] [facility] | [address] | [place], [place] | | | JUSTINE DAWN OF JAKY | [facility] | [address] | | | TESTS | | | [...] | | | LABORATORY | | | [place] | | | SERVICES, | | | [...] + + + + + | [facility] | [address] | [place] [address] | | | SERVICES, CORE | LESLY [...] [facility] | [address] | [place] [address] | | | SERVICES, CORE | PARK [...] + + + + + | [facility] | [address] | [place] [address] | | | SERVICES, CORE | LESLY [...] [facility] | [address] | [place], [place] | | | JUSTINE DAWN OF JAKY | [facility] | [address] | | | TESTS | | | [...] [facility] | [address] | [place] [address] | | | SERVICESLYDIA | [address] [...] [facility] | [address] | [place] [address] | | | LYDIA RANGEL | [address] | | | + + + + + UA, DIPSTICK ONLY (11/07/2015 8:21 AM PDT) + + [...] | [facility] | [address] | [place] [address] | | | SERVICES, CORE | [address] | | | + + + + + CULTURE, URINE OHORIN (11/07/2015 8:21 AM PDT) + + + [...] [facility] | [address] | [place] [address] | | | LYDIA RANGEL | [address]ES[address] [...] (H) | 60 - 99 mg/dL | [facility] - | | | GLUCOSE, [...] [facility] | [address] | [place], [place] | | | JUSTINE DAWN OF [facility] | [address] | [address] | | | TESTS | | | [...] [facility] | [address] | [place] [address] | | | SERVICES, CORE | PARK [...] | 3.93 | 0.39 - 4.17 | [facility] | | | | | mIU/L | [...] [facility] | [address] | [place] [address] | | | SERVICES, CORE | [address] | | | + + + + + MAGNESIUM, PLASMA (11/07/2015 3:17 AM PDT) + +-------+ + + + | Component | Value | Ref Range | Performed | Pathologist | | | | | At | Signature | + +-------+ + + + | MAGNESIUM,P | 1.9 | 1.8 - 2.5 mg/dL | [facility] [...] + + + + + | [facility] | [address] | [place] [address] | | | SERVICES, CORE | LESLY [...] | | | LABORATORY | | | [place] | | | SERVICES, | | | [...] the MDRD equation recommended by the | [facility] | | National Kidney Disease [...] + + + + + | [facility] | [address] | [place] [address] | | | SERVICES, [facility] | [address] | [...] ED | | | | | | 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 | [place], [place] | | | JUSTINE DAWN OF J[place]Y | [address] | [address] | | | TESTS | | | | + + + + + ED BG-LACPOC (11/06/2015 2:06 PM PDT) + + + [...] | [facility] | [address] [facility] | [place], [place] | | | JUSTINE DAWN OF [facility] | [address] | [address] | | | TESTS | | | [...] + + | [facility] | [address] | [place] [address] | | | LYDIA RANGEL | [address] [...] DEPT OF | [address] | [place], [place] | | | CARDIOLOGY | [address] | [address] | | + + + + + [...] [facility] | [address] | [place] [address] | | | LYDIA RANGEL | [address] [...] [facility] | [address] | [place] [address] | | | SERVICES, CORE | LESLY [...] | | | LABORATORY | | | [place] | | | SERVICES, | | | [...] [facility] | [address] | [place] [address] | | | SERVICES, CORE | [address] | | | + + + + + NT-PRO BNP (11/06/2015 1:31 PM PDT) + +-------+ + + + | Component | Value | Ref Range | Performed | Pathologist | | | | | At | Signature | + +-------+ + + + | NT-PRO BNP | 64 | <125 pg/mL | [facility] | | | | [...] + + + + + | [facility] | [address] | [place] [address] | | | SERVICES, CORE | [address] | | | + + + + + ED INFORMATION EXCHANGE (11/06/2015 1:26 PM PDT) + + + + + + | Component | Value | Ref Range | Performed | Pathologist | | | | | At | Signature | + + + + + + | [facility] | [id number] | | [facility] | | | | [id number] | | MEDICAL | | | | [...] ---- 11/06/2015 | | | 13:25 [facility] [place] [facility] | | | [address]. 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 | | | | | | --- | | + + + + + + + + | Performing | Address | City/State/Zipcode | Phone Number | | Organization | | | | + + + + + | [facility] | [address] | [place], [place] | [phone] | | [employer] | [address] | [address] | | + + + + + [...] 4:14 | | | | | dose, [facility] 11/08/15 at 1430 | | PM [...] | | | oral, ONCE, 1 dose, [facility] 11/08/15 | | PM PDT | [...] | | | | First dose on [facility] 11/08/15 at | | AM PDT | [...] | | | | ONCE, 1 dose, [facility] 11/08/15 at 1900 | | PM PDT | | | | + +-------+ +--------+---+---+ +---+---+ | | | +---+---+ + +-------+ +--------+---+---+ | potassium chloride (KLOR-CON) | Given | 11/15/19 | 60 mEq | | | | packet 60 mEq 60 mEq, oral, | | 16 9:11 | | | | | ONCE, 1 dose, [facility] 11/15/15 at 0830 | | AM PDT [...] | | | | ONCE, 1 dose, [facility] 11/09/15 at 1215 | | PM PDT [...] | | | | ONCE, 1 dose, [facility] 11/13/15 at 0845 | | AM PDT | | | | + +-------+ +--------+---+---+ +---+---+ | | | +---+---+ + +-------+ +--------+---+---+ | potassium chloride SR (K-DUR) | Given | 11/14/19 | 60 mEq | | | | tablet 60 mEq 60 mEq, oral, | | 16 9:51 | | | | | ONCE, 1 dose, [facility] 11/14/15 at 0845 | | AM [...]
--- OUTSIDE RECORDS SUMMARY | ~2020-04-17 | XMS | Encounter Summary ---
Demographics + + + | Address | [address] | | | [place] [address] | + + + | Home Phone [...] [place], [place] | | | | | [address] | | + + [...] | | | | | | [address] [place], [place] | | | | | | [address] | | | | | | [phone] | | | +--------+ + + + [...] Rd | | | | | | [place] | | | | | | [address] | | | | | | [phone] | | | | | | | | +--------+---------+ + + + documented as of this encounter Visit Diagnoses Not on filedocumented in this encounter"
--- OUTSIDE RECORDS SUMMARY | ~2020-04-17 | XMS | Encounter Summary ---
Demographics + + + | Address | [address] | | | [place] [address] | + + + | Home Phone [...] [place], [place] | | | | | [address] | | + + + + + | lElie Vang | ECON | Unknown | | + + + + + Care Team Providers + +------+ + | Care Plastic Surgery Coordinator Name | Role | Phone | [...] | | | | | (HCC) | [place], [place] | Hospital, | | | | | Procedures | [address] | 10th Floor | | | | | CT ABDOMEN & | Phone: | [place], [place] | | | | | PELVIS [address]WO | | [address] | | | | | IV CONTRAST | Fax: | Phone: | | | | | [place] | [phone] | [phone] | | | | | ABDOMEN&PELV | | Fax: | | | | | [place] | | [phone] | | | | | W/CONTRAST | [...] | 2015 | Encounter | Lab at [facility] [address] | | | | | [address] [facility] | | | [facility], | | | | | | Building [address], 3rd | | | | | | Floor [place], [place] | | | | | | [address] | | | | | | [phone] | | | +--------+ + + + [...] + documented as of this encounter Progress Moses Lobo Faculty - 10/12/2014 9:08 AM PDTElectronically signed by Faculty Other at 5 9:08 AM PDTYamil, Faculty - 10/12/2014 9:08 AM PDT documented in this encounter Procedure Moses Lobo Faculty - 10/13/2014 1:28 PM PDTAssociated Order(s): PROCEDURE NOTEElectronically s igned by Faculty Other at 10/13/2014 1:28 PM PDTdocumented in this encounter Plan of [...] Rd | | | | | | [place], [place] | | | | | | [address] | | | | | | [phone] | | | | | | | [...] 1.1 | 0.6 - 1.1 mg/dL | [facility] [...] | [facility] | [address] | [place] [address] | | | OF CARE TESTS | | | | + + + + + documented in this encounter Visit Diagnoses + + | Diagnosis | + + | Abdominal pain | + + | Morbid obesity (HCC) Morbid obesity | + + documented in this encounter"
--- OUTSIDE RECORDS SUMMARY | ~2020-04-17 | XMS | Encounter Summary ---
Demographics + + + | Address | [address] | | | [place] [address] | + + + | Home Phone [...] [place], [place] | | | | | [address] | | + + + + + | Ellie Vang | ECON | Unknown | | + + + + + Care Team Providers + +------+ + | Care Compounding Assistant Name | Role | Phone | [...] | | | | | Procedures | [place], [place] | [place], [place] | | | | | [place] | [address] | [address] | | | | | CAR | Phone: | Phone: | | | | | PREVENTATIVE | [phone] | [phone] | | | | | [facility] - | Fax: | Fax: | | | | | LIPIDS | [phone] | [phone] | +--------+--------+ + + + + Encounter Details +--------+---------+ + + + | Date | Type | Department | Care Team | Description | +--------+---------+ + + + | 09/11/ | Office | Cardiology | LissethOlga Lidia, | Morbid obesity with | | 2017 | Visit | Preventive at [facility] | [address] | BMI of 70 and over, | | | | [address] | [address] | adult (HCC) (Primary | | | | Center for [facility] | [place], [place] | Dx) | | | | and Healing, | [address] | | | | | [address] | | | | | | [place], [place] | | | | | | [address] | | | | | | [phone] | | | +--------+---------+ + + + [...] appointment, Dietitian: Olga Lidia Montanez RD, LD [facility] Bariatric department (to reschedule classes): [phone] Goals: 1. Try to stop buying Pop-Tarts 2. Replace afternoon snack (think of this as lunch) with vegetables or fruit -cucumbers, carrots, broccoli, cauliflower, etc. -try making ranch dip w/ nonfat plain yogurt (regular or Greenlandic) (or mix yogurt w/ salsa; o r chipotle hot sauce & lower sioux juice) 3. Snack ideas: -fruit -vegetables (with hummus or yogurt dip) -Greenlandic yogurt - light (have w/ fruit if you're still hungry) -applesauce - unsweetened, w/ lowfat string cheese -1/4 cup nuts -lowfat string cheese -low-fat or non-fat cottage cheese w/ tomatoes 4. Aim for 60-80 grams of protein a day (see list) 5. Add Greenlandic yogurt to breakfast Heart Protection Kitchen from [facility] Healthy eating made simple. What: FREE heart-healthy cooking demonstrations led by guest chief inspector and nutrition experts. Samples are provided! Where: [facility] ([facility]), September, 2nd floor teaching kitchen When: All classes from 11:00am-12:00pm ? October 12 (led by Dr. Paulino Carreno MD) Please contact Keerthi Boyer at [phone] or email at [email or web address] for information on upcoming classes and to register. Space is limited - reserve your seat today! Want more info on what to eat? Watch the [employer] video, "Healthy Eating 101," at [email or web address] documented in this encounter Progress Notes Olga Lidia Montanez RD - 09/11/2017 2:30 PM PSTFormatting of this note might be different fro m the original. [facility], Nutrition Consultation Referring provider: Dr. Randell Franks MD Referring diagnosis: obesity, HF, DM2 Visit type: Initial; llnw-sl-lxod visit with patient Questions/Information desired today: Hoping [...] restarting the bariatric program; getting PT in [place] & has nutrition classes scheduled. Still has bariatric notebooks at home. Per Direct[employer] Plus message from Dr. Pandey 09/10/17: "Just tell [...] & 1% milk; occ w/ applesauce or [place]ic yogurt No L S (3pm): pop-tart or [...] it's too expensive. Occ fruit bowls from [facility]. Vegetables: every day w/ dinner - usually [...] in PT 2x/week for bariatric program (in [place]) UBW: 385-391 lbs Max weight: 529 lbs Weight history: lost from 495 lbs to 383 lbs in [id number] on Atkins diet ANTHROPOMETRICS: Height: Ht Readings from Last 1 Encounters: 09/11/17 1.549 m (5' 1") Weight: Wt Readings from Last 1 Encounters: 09/11/17 176.5 kg (389 lb 3.2 oz) 11/28/16 179.443 kg (395 lb 10 oz) Body mass index is 73.54 kg/m. Weight changeover operator the past year: 6 lb wt loss [...] of protein a day - add light Green[place]ic yogurt to breakfast; include lean protein with PM snack/lunch 3. D/c carbonated beverages (e.g., diet soda); replace with water, Crystal Light, diet deca f tea, or other calorie-free still beverage Contact information was provided; call or send Direct[employer] Plus message to dietitian with any questi ons. [...] [address] | | | | | | [place], [place] | | | | | | [address] | | | | | | [phone] | | | | | | | | +--------+---------+ + + + documented as of this encounter Visit Diagnoses + + | Diagnosis | + + | Morbid obesity with BMI of 70 and over, adult (HCC) - Primary | + + documented in this encounter
--- OUTSIDE RECORDS SUMMARY | ~2020-04-17 | XMS | Encounter Summary ---
Demographics + + + | Address | [address] | | | [place] [address] | + + + | Home Phone [...] [place], [place] | | | | | [address] | | + + + + + | Ellie Vang | ECON | Unknown | | + + + + + Care Team Providers + +------+ + | Care Humid System Operator Name | Role | Phone [...] Physicians | | | | | | [facility] | [place], [facility] | | | | | | [place], [place] | Floor | | | | | | [address] | [place], [place] | | | | | | Phone: | [phone] | | | | | | [phone] | Phone: | | | | | | | [phone] | | | | | | | Fax: | | | | | | | [phone] | +--------+--------+ + + + + Encounter [...] | [facility] [address] [place], | | | | | [address] | [place] [address] | | | | | Physicians [facility], | [phone] | | | | | 2nd Floor | | | | | | [place], [place] | | | | | | [address] | | | | | | [phone] | | | +--------+---------+ + + + [...] Axel Gonzales MD - 03/06/2014 1:15 PM [facility] [...] a HIDA scan to be done in [place] to verify that she does not have [...] Surgery Resident Department of General Surgery Pager: [phone] I saw and evaluated the patient. I agree with the findings and the plan of care as dequan han in the resident s note. PRADIP STARR MD [facility] GENER[facility] AT [address] Mailcode: [id number] [place] [address] documented in this encounte r Plan of Treatment +--------+---------+ + + + | Date | Type | Specialty | Care Team | Description | +--------+---------+ + + + | 06/08/ | Office | Plastic Surgery | Antoinette Hale, | | | 2019 | Visit | | [address] [place] [address] | | | | | | [facility] | | | | | | [place], [place] | | | | | | [address] | | | | | | [phone] | | | | | | | [...] + + + + + | [facility] | [address] | [place] [address] | | | SERVICES, CORE | [address] | | | + + + + + documented in this encounter Visit Diagnoses + + | Diagnosis | + + | Cholecystitis - Primary Cholecystitis, unspecified | + + documented in this encounter
--- OUTSIDE RECORDS SUMMARY | ~2020-04-17 | XMS | Encounter Summary ---
Demographics + + + | Address | [address] | | | [place] [address] | + + + | Home Phone [...] [place], [place] | | | | | [address] | | + + + + + | Ellie Vang | ECON | Unknown | | + + + + + Care Team Providers + +------+ + | Care Broadcast News Producer Name | Role | Phone | + +------+ + | Fadi Goodrich DO | PCP | | + +------+ + Encounter Details +--------+------+ + + + | Date | Type | Department | Care Team | Description | +--------+------+ + + + | 11/28/ | Lab | Laboratory at [facility] | | Essential | | 2017 | | [address] | | hypertension; Right | | | | [facility] | | heart failure (HCC); | | | | and Healing, | | Type 2 diabetes | | | | [address] | | mellitus without | | | | [place], [place] | | complication, with | | | | [address] | | long-term current | | | | [phone] | | use of insulin (HCC) | [...] | | 2020 | Visit | | [address] | | | | | | [address] | | | | | | [place], [place] | | | | | | [address] | | | | | | [phone] | | | | | | | [...] heart failure ([facility]) | results section. | | AT,GLUC,CA,AST,ALT,B | | | Type 2 diabetes | | | MARGIE TOTAL,ALK | | | mellitus without | | | PHOS,ALB,PROT TOTAL) | | | complication, with | | | | | | long-term current | | | | | | use of insulin ([facility]) | | + +--------+ + + + | TSH | Routin | 11/28/2016 | Essential | Results for this | | | e | 10:53 AM | hypertension Right | procedure are in the | | | | PDT | heart failure ([facility]) | results section. | | | | | Type 2 diabetes | | | | | | mellitus without | | | | | | complication, with | | | | | | long-term current | | | | | | use of insulin ([facility]) | | + +--------+ + + + | HEMOGLOBIN A1C, | Routin | 11/28/2016 | Essential | Results for this | | BLOOD | e | 10:53 AM | hypertension Right | procedure are in the | | | | PDT | heart failure ([facility]) | results section. | | | | | Type 2 diabetes | | | | | | mellitus without | | | | | | complication, with | | | | | | long-term current | | | | | | use of insulin ([facility]) | [...] | [address] | [place] [address] | | | LYDIA RANGEL | CLARENCE [...] | [address] [facility] | [place], [place] | | | SERVICES, LIPID | [address] | [address] | | + + + + + HEMOGLOBIN A1C, BLOOD (11/28/2016 10:53 AM PDT) + + + + + + | Component | Value | Ref Range | Performed | Pathologist | | | | | At | Signature | + + + + + + | HEMOGLOBIN | 6.8 (H)Comment: Hgb A1C | <5.7 % | [facility] | | | A1C | Interpretive | [...] + + + + | [facility] | [address] | [place] [address] | | | SERVICES, SPECIAL | PARK [...] | | | LABORATORY | | | [facility] | | | SERVICES, | | | [...] + + + | [facility] | [address] | [place] [address] | | | SERVICES, CORE | CLARENCE [...]
--- OUTSIDE RECORDS SUMMARY | ~2020-04-17 | XMS | Encounter Summary ---
Demographics + + + | Address | [address] | | | [place] [address] | + + + | Home Phone [...] [place], [place] | | | | | [address] | | + + + + + | Ellie Vang | ECON | Unknown | | + + + + + Care Team Providers + +------+ + | Care Printed Circuit Designer Name | Role | Phone | [...] [id number] | | | | | | [facility] | | | | | | [place], [place] | | | | | | [address] | | | | | | [phone] | | | +--------+ + + + [...] | | 2019 | Visit | | [address] | | | | | | [address] | | | | | | [place], [place] | | | | | | [address] | | | | | | [phone] | | | | | | | | +--------+---------+ + + + documented as of this encounter Visit Diagnoses Not on filedocumented in this encounter"
--- OUTSIDE RECORDS SUMMARY | ~2020-04-17 | XMS | Encounter Summary ---
Demographics + + + | Address | [address] | | | [place] [address] | + + + | Home Phone [...] [place], [place] | | | | | [address] | | + + + + + | Ellie Vang | ECON | Unknown | | + + + + + Care Team Providers + +------+ + | Care Can Worker Name | Role | Phone [...] | | | | | obstruction | [place], | for Health | | | | | or gangrene | [place] | and Healing, | | | | | Abdominal | [address] | [address] | | | | | pain, | Phone: | [place], [place] | | | | | unspecified | | [address] | | | | | abdominal | Fax: | Phone: | | | | | location | [phone] | [phone] | | | | | Procedures | | Fax: | | | | | CONSULT TO | | [phone] | | | | | SURGERY - [...] | | | | [address] | Ave [place], [place] | | | | | for Health and | [address] | | | | | [facility] | [phone] | | | | | [place], [place] | | | | | | [address] | | | | | | | [...] local GI consult as she lives in [place]. Elzbieta has still not done this bc [...] [address] | | | | | | [place], [place] | | | | | | [address] | | | | | | [phone] | | | | | | | [...]
--- OUTSIDE RECORDS SUMMARY | ~2020-04-17 | XMS | Encounter Summary ---
Demographics + + + | Address | [address] | | | [place] [address] | + + + | Home Phone [...] Team Providers + +------+ + | Care Set Up Worker Name | Role | Phone | + +------+ + PCP | Unavailable | + +------+ + Encounter Details +--------+ + + + + | Date | Type | Department | Care Team | Description | +--------+ + + + + | 10/20/ | Orders Only | [facility] | Conversion | | | 2016 | | NEPHROLOGY [place] | Transaction, | | | | | [address] | Provider Unknown | | | | | [address] [place], [place] | | | | | | [address] | (Fax) | | | | | [phone] | | | +--------+ + + + [...] | | | | | [place] [address] | | | | | | [phone] | | | | | | | [...]
--- OUTSIDE RECORDS SUMMARY | ~2020-04-17 | XMS | Encounter Summary ---
Demographics + + + | Address | [address] | | | [place] [address] | + + + | Home Phone [...] [place], [place] | | | | | [address] | | + + + + + | Ellie Vang | ECON | Unknown | | + + + + + Care Team Providers + +------+ + | Care Regional Office Coordinator Name | Role | Phone | [...] | | | | | | | [facility] | | | | | | | Health and | | | | | | | Healing, | | | | | | | [address] | | | | | | | [place], [place] | | | | | | | [address] | | | | | | | Phone: | | | | | | | [phone] | | | | | | | Fax: | | | | | | | [phone] | +--------+--------+ + + + + Encounter Details +--------+---------+ + + + | Date | Type | Department | Care Team | Description | +--------+---------+ + + + | 08/28/ | Office | Digestive Health | [address], | Morbid obesity (HCC) | | 2015 | Visit | Center at [facility] [address] | [place], [place] [address] | (Primary Dx); Type | | | | [address] [facility] | [address] | 2 diabetes mellitus | | | | [facility] and | [place], [place] | (HCC) | | | | [facility] 2 | [address] | | | | | [place], [place] | [phone] | | | | | [address] | | | | | | [phone] | | | +--------+---------+ + + + [...] this encounter Progress Notes [address], [facility], [place] - 08/28/2014 12:26 PM PSTFormatting of this note might be diff erent from the original. Referring Provider: Fadi Goodrich DO [facility], Pre-Bariatric Surgery Visit Follow-up diet consult prior to having Frandy-En-Y gastric bypass surgery. Documented Time of Visit: 12:29 to 12:57 (28 minutes [id number] with patient) SUBJECTIVE: Trying to follow a [...] post-surgery diet progression. 4. Call or send [employer] message to dietitian with any questions. Contact information was provided. Follow up with dietitian prior to surgery to review post-surgical recommendations. [address], [facility] [place] Pager# [phone] documented i n this encounter Plan of Treatment +--------+---------+ + + + | Date | Type | Specialty | Care Team | Description | +--------+---------+ + + + | 06/08/ | Office | Plastic Surgery | Antoinette Hale, | | | 2019 | Visit | | [address] | | | | | | [address] | | | | | | [place], [place] | | | | | | [address] | | | | | | [phone] | | | | | | | | +--------+---------+ + + + documented as of this encounter Procedures + +--------+ + + + | Procedure Name | Priori | Date/Time | Associated Diagnosis | Comments | | | ty | | | | + +--------+ + + + | PA MNT RE-ASSESSMNT | Routin | 08/28/2014 | [...]
--- OUTSIDE RECORDS SUMMARY | ~2020-04-17 | XMS | Encounter Summary ---
Demographics + + + | Address | [address] | | | [place] [address] | + + + | Home Phone [...] [place], [place] | | | | | [address] | | + + + + + | Ellie Vang | ECON | Unknown | | + + + + + Care Team Providers + +------+ + | Care Librarian Name | Role | Phone | + +------+ + | Kenyatta Cardenas MD | PCP | | + +------+ + Reason for Visit + +--------+ + | Reason | Onset | Comments | | | Date | | + +--------+ + | Pre-operative | 06/02/ | | | evaluation | 2019 | | + +--------+ + Encounter Details +--------+ + + + + | Date | Type | Department | Care Team | Description | +--------+ + + + + | 06/02/ | Telephone-S | Preoperative | | Pre-operative | | 2019 | cheduled | Medicine Clinic at | | evaluation | | | | [facility] | | | | | | [address] | | | | | | [facility] | | | | | | and Healing, | | | | | | [address] | | | | | | [place], [place] | | | | | | [address] | | | | | | [phone] | | | +--------+ + + + [...] MG TABLET ATENOLOL 50 MG TABLET CALCIUM [id number]-GENIS ORAL CYANOCOBALAMIN (VIT B-12) 1,000 MCG TABLET [...] as Uber/Lyft), or public transportation. An Uber/Lyft/regional driver does not count as the responsible [...] is after office hours, call the [facility] line o scribe operator at [phone] and ask them to page him or h er. documented in this encounter Miscellaneous Notes Telephone Encounter - Aide Birmingham RN - 06/14/2019 2:19 PM PSTPhone appointment complete d as scheduled. Documentation to be found in the Notes and Trans Encounter tab in [employer]. Elec tronically signed by Trell Walker MD at 06/16/2019 4:13 PM PSTdocumented in this encount er Plan of Treatment +--------+---------+ + + + | Date | Type | Specialty | Care Team | Description | +--------+---------+ + + + | 06/08/ | Office | Plastic Surgery | Antoinette Hale, | | | 2019 | Visit | | [address] | | | | | | [address] | | | | | | [place] | | | | | | [address] | | | | | | [phone] | | | | | | | | +--------+---------+ + + + documented as of this encounter Visit Diagnoses Not on filedocumented in this encounter
--- OUTSIDE RECORDS SUMMARY | ~2020-04-17 | XMS | Encounter Summary ---
Demographics + + + | Address | [address] | | | [place] [address] | + + + | Home Phone [...] + | Katalina Padilla | ECON | [address] | | | | | [place], [place] | | | | | [address] | | + + + + + | Ellie Vang | ECON | Unknown | | + + + + + Care Team Providers + +------+ + | Care Winchman/Crane Operator Name | Role | Phone | [...] + + | 05/13/ | Emergency | [facility] Emergency | Josemanuel Joe | | | 2019 - | | Department [address] | | | | | [address] | [address] | | | 05/14/ | | [facility] | [place], [place] | | | 2019 | | [place], [place] | [address] | | | | | [address] | [phone] | | | | | [phone] | | | +--------+ + + + [...] might be different fr om the original. [facility] Discharge Summary Green Surgery Admit [...] by mouth once daily at bedtime. CALCIUM [id number]-GENIS ORAL Take 2 tablets by mouth two [...] the prescribed narcotic-opioid (e.g. oxycodone, hydrocodone, Vicodin, Parker [place], Percoce t, Dilaudid) as needed. Opioid pain medications may cause constipation, so be sure to take a stool softener if you take an opioid pain medication. FOLLOW-UP: Follow-up with your primary care provider for pain control. Dr. Tiwari's snaker tractor driver will contact you to try to find a date for surgery. Follow Up: Future Appointments Provider Department Dept Phone Center 06/27/2019 11:55 AM [facility] PHONE/RN CLIN 3 Preoperative Medicine Clinic at [place] [address] [phone] [facility] 06/30/2019 11:30 AM Aly Franks Cardiology in [facility] [place] [phone] Cardiology Schedule the following appointment(s) when you get home JONES TIWARI MD. Specialty: General Surgery Why: Dr. Tiwari's snaker tractor driver will call you to schedule a surgery date. Contact information [address] [place] [address] Kenyatta Hylton MD. Specialty: Family Medicine Why: For pain control. Contact information [address] [place] [address] Discharge Physical Exam: Last [...] oriented. Grossly intact. Anisa Christopher MD PhD [facility] General Surgery ATTENDING PHYSICIAN STATEMENT I saw the patient and have repeated the pertinent portions of the history and physical exam . I agree with the findings, assessment and plan as documented by the resident. Johana Holloway MD Division of Gastrointestinal and General Surgery [facility] [address], [place] [address] Office: [phone] documented in this e ncounter Discharge Instructions [...] avoid concentrated sweets. Discharge Instr - Diagnoses Ainsa Christopher MD - 05/14/2019 8:32 AM PDTIncarcerated [...] surgery date up as possible and the snaker tractor driver will contact you. Elec tronically signed by [...] passing gas, please go directly to the [facility] department to be evaluated. Pain Medications: [...] the prescribed narcotic-opioid (e.g. oxycodone, hydrocodone, Vicodin, [place], Percoce t, Dilaudid) as needed. Opioid pain medications may cause constipation, so be sure to take a stool softener if you take an opioid pain medication. FOLLOW-UP: Follow-up with your primary care provider for pain control. Dr. Tiwari's snaker tractor driver will contact you to try to find [...] | | 0 | | | | [id number]-GEN | mouth two times | | | [...] Surgery History and Physical Patient: Dylan Cristina ([id number]) Date: 05/13/2019 Chief Complaint: Abdominal pain History [...] and was sent to the ED from [facility]. Patient was seen by Dr. Tiwari in clinic on 05/05/2019 at which time she had diarrhea w ith nausea and vomiting. She developed new abdominal pain on 05/10/2019 at which time she wa s seen at [facility] in [place], [place] (CT abdomen pelvis in [facility]). There was no [...] Dr. Andie Brian Incisional hernia repair 03/01/2015 [facility]/ Dr. Cantu. Primary fascial closure and scar excision Lap gastric byp, and nilesh-en-y gastroenterostomy w/ nilesh limb 150 cm or less 8 [facility], Dr Pandey Cholecystectomy, laparoscopic Past Medical [...] mg by mouth two times daily. CALCIUM CRB&ZOK-S9-[id number]-GENIS ORAL Sig: Take 2 tablets by mouth [...] file Gets together: Not on file Attends taoism service: Not on file Active member of club or organization: Not on file Attends meetings of clubs or organizations: Not on file Relationship status: Not on file Other Topics Concern Not on file Social History Narrative Updated 11/09/15 She lives in [place] with her mother and her sister (also her caregiver) lives in an apa rtment/duplex below. She has 2 grandchildren (age 4 and 7) who live with her daughter and son-in-law Her boyfriend lives in [place] HFpEF, DM2, HTN, Sleep Apnea (unable to tolerate CPAP), Hypothyroidism, Severe Obesity ([facility] max weight 495 lbs) Last seen [...] program here and refer her to our public health specialist who also has expertise in physical [...] a 44 y.o. female with HTN, T2DM, AAMRA, right HF, hypothyroidism, morbid obesity s/p laparoscopic [...] IV and PO contrast Neelam Owen, PGY2 [id number] I am aware of current clinical events. [...] will see her again. JONES TIWARI MD [facility] EMERGENCY DEPARTMENT [address] [place] [address] JONES TIWARI MD [facility] EMERGENCY DEPARTMENT [address] [place] [address] documented in this encounter Consult Notes Luca Goodman Jr., [facility] - 05/14/2019 2:25 AM PDTFormatting of this note might be different f rom the original. Pharmacy Services: Admission Medication Reconciliation Prior to Admission Medications: Prior to Admission Medications Prescriptions Last Dose Informant Patient Reported? Taking? ALPRAZolam 1 mg oral tablet Yes Yes Sig: Take 1 mg by mouth twice daily as needed. CALCIUM CRB&[id number]-GENIS ORAL 05/12/2019 at Unknown time Yes Yes [...] regarding this information please contact pharmacy, pager [phone] Luca Goodman Jr., PharmD, BCPS, BCCCP Clinical Pharmacist [facility] Pharmacy Services documented in this encounter [...] 7:24 AM PDTReport given to KELSIE Cancino Mdaonna Dodge RN - 05/14/2019 6:41 AM PDTED [...] Rosa called RN and suggested paging narciso healthcare administration intern. Narciso healthcare administration intern pag ed at this time. Madonna Felix RN - 05/14/2019 3:46 AM PDTPt requesting sleep something to help her sleep. P t tearful at this time stating that she hasn't been able to sleep for the last couple of wee ks. Curt Caldwell MD regarding sleep: "Pt Dylanirma Cristina ([id number]) ED Rm 32: Pt requesting sleep aid, but reports melatonin does no t work for her. Please also sign up for first call. KELSIE Sotelo [id number]"Electronically signed by Madonna Vigil RN at 2018 3:48 AM Leora Salazar RN - 05/14/2019 1:52 AM PDTPatient reporting she is very an xious, states she doesn't know anyone in [place] and all her family is back home [...] pt at this time. Pt here [facility] appointment today for incarcerated hernia wi th [...] scheduled to see one of the plastics [facility] today in clinic who referred her [...] 3 Hypoventilation associated with obesity ([facility]) 06/16/2013 Priority: 4 AMARA (obstructive sleep apnea) 04/14/2013 Priority: 4 Overview Note: Cannot tolerate CPAP Severe Morbid obesity ([facility]), BMI 88 11/12/2012 Priority: 4 Overview Note: Lifetime max: 495 lbs Phentermine started Type 2 diabetes mellitus ([facility]) 04/14/2013 Priority: 5 Iron deficiency anemia due [...] Bromocriptine Myalgia and myositis Bipolar disorder ([facility]) Depression Anemia Chronic wound infection of abdomen from 2010 Morbid obesity with body mass index of 70 and over in adult ([facility]) Incisional hernia, incarcerated 2012 Hernia of abdominal [...] Dr. Andie Brian Incisional hernia repair 03/01/2015 [facility]/ Dr. Cantu. Primary fascial closure and scar excision Lap gastric byp, and nilesh-en-y gastroenterostomy w/ nilesh limb 150 cm or less 03/01/2018 [facility]cyst[facility], laparoscopic Medications Prior to Admission Medications Prescriptions Last Dose Informant Patient Reported? Taking? ALPRAZolam 1 mg oral tablet Yes No Sig: Take 1 mg by mouth two times daily. CALCIUM [id number]-GENIS ORAL 05/12/2019 at Unknown time Yes Yes [...] 0.68 0.60 - 1.10 mg/dL EGFR - BARBADIAN >60 >60 mL/min EGFR NON -BARBADIAN >60 >60 mL/min SODIUM, PLASMA (LAB) 141 [...] by both resident and myself using the Revelens share function. I agree with t amaury [...] had a BM today, and usually has chrome plater ela diarrhea. Mary Gong RN - 05/13/2019 5:19 PM PDTPt BIBA, sent [facility]. Pt arrived from [facility] by medical transport today to have a doctor's appointment at clinic, and pt was noted to have severe abdominal pain which has increases steadily since PC P in [place] gave pt a fentanyl patch. Staff at clinic noted pt with multiple abdominal h ernias which is probably the cause of abdominal pain. Pt is sent here for hernia repair emerson jerrica. Pt states seen at a pain clinic in the [facility] and was prescribed fentanyl patch from there, [...] with the documentation in the provider note. [facility] - Trell Ash - 05/13/2019 5:00 PM [id number] 44yof jin abdullahi MD 124/62 99% ra domonique 5Edasia buenrostro signed by Trell Starks at 05/13/2019 5:00 PM PDTTransfer Note - Cyndi Pauilno PA-C - 05/13/2019 4:25 PM PDTEmergency Medicine Referral Note Referring Provider Name: Dr. Owen Referring Provider Specialty/Clinic: [facility] Surg [facility] Best Contact Number: pager Callback required?: yes Provider aware that we are on Ambulance divert. Relevant Past Medical History HTN, CVA, mult hernias, known incarcerated bowel in hernia 44 year old female presenting with abdominal pain. Worse for 2 days. Not passing gas. No BM Decreased appetite with N/V Decreased urinary output. Seen at [place] [facility] a days ago Illness Severity: Watcher Abd hernia soft but severely tender. Plan, Recommendations and Disposition - CBC, CMP, LA - CT AP with IV/PO contrast (please expedite) - Will get records from [place] - Page green surg (or page [phone]) - Dr. Tiwari requesting NGT and NPO Mode of Transportation EMS Provider aware that we are on Ambulance divert. Cyndi Paulino PA-C a [facility] - Teresa Robledo - 05/13/2019 4:24 PM [...] | | 2019 | Visit | | [address] | | | | | | [address] | | | | | | [place], [place] | | | | | | [address] | | | | | | [phone] | | | | | | | [...] - [place] | [address] | [place], [place] | | | [place] [address]ARE | [address] | [address] | | | TESTS | | | [...] [facility] | [address] | [place] [address] | | | SERVICES, CORE | PARK [...] MDRD equation recommended by the National | [facility] | | Kidney Disease Education [...] CENTER LABORATORY | [address] | [place] [address] | | | SERVICES, [facility] | [address] | | | + [...] the ventral | | | abdominal wall (/88). IMPRESSION: Findings most consistent | | | [...] [facility] | [address] | [place] [address] | | | SERVICES, CORE | PARK [...] 5-6 weeks | | | 850 - 32642 6-7 weeks | | | 4000 - 012779 7-12 weeks | | | 54194 - 552535 12-16 weeks | | | 33466 - 596742 16-29 | | | weeks 1400 - 31969 | | | 29-41 weeks 940 - 10093 | | | This test has not been approved for use as a tumor marker in | | | males or females. | | + + + + + + + + | Performing | Address | City/State/Zipcode | Phone Number | | Organization | | | | + + + + + | [facility] | [address] | [place] [address] | | | SERVICES, CORE | PARK [...] | [facility] | [address] | [place] [address] | | | SERVICES, CORE | CLARENCE [...] | + + + + + | [facility] | [address] | [place] [address] | | | LYDIA RANGEL | [address] | | | + + + + + ED INFORMATION EXCHANGE (05/13/2019 5:14 PM PDT) + + | Specimen | + + | | + + + + + | Narrative | Performed At | + + + | COLLECTIVE?NOTIFICATION?05/13/2019 17:13?DYLAN CRISTINA?MRN: | [facility] | | [id number] Criteria Met Has Guidelines PDMP Security | MEDICAL | | and Safety No recent Security Events currently on file ED Care | [employer] | | Guidelines from [employer] [facility] [place] Last Updated: 12/06/18 9:53 AM | | | Care Coordination: Receiving mental health services with | | | [employer].? Please contact [employer] for mental health concerns.? | | | Sarah/Toni Centeno: [phone]? Kishan: [phone].? | | | These are guidelines and the provider should exercise clinical | | | judgment when providing care. Care History Medical/Surgical | | | 05/11/19 12:00 AM [facility] Patient is | | | currently established with [facility]. If patient is seen in | | | the ED during business hours. Please contact CHWs at [facility] | | | Clinic. Care Recommendation: [...] 08/23/18 12:00 AM | | | [facility] PATIENT HAS A PCP APT [...] SUDOGEST 30 MG TABLET 5 BERNARDO MARTIN, CIVIL CADD TECHNICIAN 0 | | | 2019-03-30 SUDOGEST 30 MG TABLET 30 BERNARDO MARTIN, CIVIL CADD TECHNICIAN 0 | | | 2019-03-20 ALPRAZOLAM 1 [...] mo.) Facility Visits | | | [facility] 1 [facility] 1 | | | [facility] 2 Total 4 Note: Visits indicate total | | | known visits. Recent Emergency Department Visit Summary Date | | | Facility City State Type Diagnoses or Chief Complaint May 13, 2019 | | | [facility] [place] Emergency | | | 10,800. A303 May 10, 2019 [facility] [place] | | | [...] Allergy status to penicillin December 03, 2018 [facility] | | | Health [place] Emergency RIGHT LEG PAIN DUE TO FALL | | | Strain of unsp musc/tend at lower leg level, right leg, init Jul | | | 2018 [facility] 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 | | | Care Team Provider Specialty Phone Fax Service Dates Treva, | | | Rob Truck Striker/Cashier General Mar 27, 2018 - | | | Current Bernard Hylton MD Internal Medicine: Pulmonary Disease | | | Aug 23, 2018 - Current [employer] This patient has | | | registered at the [facility] Emergency | | | Department For more information visit: | | | [email or web address] | | | [email or web address] PLEASE NOTE: 1. Any care recommendations [...] or completeness of information provided. ? 2019 [employer] | | | [employer]. - [email or web address] | | + + + + + | Procedure Note | + + | Service Account, Rtf Results Inbound - 05/13/2019 5:16 PM PDT Formatting of this | | note might be different from the original.COLLECTIVE?NOTIFICATION?05/13/2019 | | 17:13?DYLAN CRISTINA? [facility] Has Guidelines PDMPSecurity and | | SafetyNo recent Security Events currently on fileED Care Guidelines from [employer] - | | UmmarileelaRubint Updated: 12/06/18 9:53 AM Care Coordination:Receiving mental health | | services with [employer].? Please contact [employer] for mental health concerns.? | | Sarah/Toni Centeno: [phone]? [place]: [phone].?These are guidelines | | and the provider should exercise clinical judgment when providing care.Care | | HistoryMedical/[place]90/16/19 12:00 AM [facility] Patient is currently | | established with [facility]. If patient is seen in the ED during business hours. | | Please contact CHWs at [facility].Care Recommendation:This patient has had 5 [...] clinical judgment when providing care.08/23/18 12:00 AM [facility] | | Hospital PATIENT HAS A [...] SUDOGEST 30 MG TABLET 5 BERNARDO MARTIN, CIVIL CADD TECHNICIAN 0 2019-03-30 SUDOGEST 30 MG TABLET 30 | | BERNARDO MARTIN, CIVIL CADD TECHNICIAN 0 2019-03-20 ALPRAZOLAM 1 MG TABLET 60 [...] 0 E.D. Visit Count (12 mo.)Facility Visits [facility] | | Health 1 [facility] 1 [facility] 2 Total 4 Note: | | Visits indicate total known visits. Recent Emergency Department Visit SummaryDate | | Facility City State Type Diagnoses or Chief Complaint May 13, 2019 [facility] | | [facility] [place] Emergency 10,800. A303 May 10, [address] [facility] [address] | | [place] Emergency Nausea with [...] penicillin December 03, 2018 | | [facility] [place] Emergency RIGHT LEG PAIN DUE TO FALL Strain of | | unsp musc/tend at lower leg level, right leg, init Aug 22, [address] [facility] [address] | | [place] Emergency Other usp (current) drug therapy Upper abdominal pain, [...] Fax Service Dates | | Rob Tilley Truck Striker/Cashier General Mar 27, 2018 - Current | | Bernard Hylton MD Internal Medicine: Pulmonary Disease Aug 23, 2018 - Current | | [employer] patient has registered at the [facility] | | Emergency Department For more information visit: | | [email or web address] PLEASE | | NOTE: 1. Any care [...] completeness of information | | provided.? 2019 [employer]. - [email or web address] | |[facility] 3 | |Benzos 4 | |Opioids 7 | |Long Acting Opioids 0 | | | | | | | |E.D. Visit Count (12 mo.) | |Facility Visits | |[facility] 1 | |[facility] 1 | |[facility] 2 | |Total 4 | |Note: Visits indicate total known visits. | | | |Recent Emergency Department Visit Summary | |Date Facility City State Type Diagnoses or Chief Complaint | |May 13, 2019 [facility] [place] Emergency | | 10,800. A303 | | | |May 10, 2019 [facility] [place] [...] [place]. [place] Emergency | | Other terminal gauger supervisor (current) drug therapy | | Upper abdominal pain, unspecified | | Bariatric surgery status | | Allergy status to oth drug/meds/biol subst status | | Noninfective gastroenteritis and colitis, unspecified | | Obesity, unspecified | | Anxiety disorder, unspecified | | terminal gauger supervisor (current) use of aspirin | | Allergy status to penicillin | | Personal history of pulmonary embolism | | | | | | | |Recent Inpatient Visit Summary | |No recorded inpatient visits. | | | |Care Team | |Provider Specialty Phone Fax Service Dates | |Rob Tilley Truck Striker/Cashier General Mar 27, 2018 - Current | |Bernard Hylton MD Internal Medicine: Pulmonary Disease Aug 23, 2018 - Current | | | |[employer] Portal | |This patient has registered at the [facility] Emergency Departmen t | |For more information visit: [email or web address] | |PLEASE NOTE: | | 1. Any care recommendations and other clinical information are provided as guidelines or for historical purposes only, and providers should exercise their own clinical judgment whe n providing care. | | 2. You may only use this information for purposes of treatment, payment or health care o perations activities, and subject to the limitations of applicable [employer] Policies. | | 3. You should consult directly with the organization that provided a care guideline or o ther clinical history with any questions about additional information or accuracy or complet eness of information provided. | | | |? 2019 [employer]. - [email or web address] | + + + + + + + | Performing | Address | City/[facility]/Zipcode | Phone Number | | Organization | | | | + + + + + | [facility] | [address] | [place], [place] | [phone] | | TECHNOLOGIES | [address] | [address] | | + + + + [...] | | +-------+ +--------+---+---+ | Given | 10//20 | 0.5 mg | | | | [...] | | | | ONCE, 1 dose, [facility] 05/13/19 at | | PM PDT | [...] | | | | ONCE, 1 dose, [facility] 05/13/19 at | | PM PDT | [...] | | | | ONCE, 1 dose, [facility] 05/14/19 at | | PM [...]
--- OUTSIDE RECORDS SUMMARY | ~2020-04-17 | XMS | Encounter Summary ---
Demographics + + + | Address | [address] | | | [place] [address] | + + + | Home Phone [...] [place], [place] | | | | | [address] | | + + + + + | Ellie Vang | ECON | Unknown | | + + + + + Care Team Providers + +------+ + | Care Topographical Field Assistant Name | Role | Phone | [...] | Center at [facility] [address] | [facility], [address] | | | | | [facility] | [address] | | | | | [facility] and | [place], [place] | | | | | [place] [address] | [address] | | | | | [place], [place] | [phone] | | | | | [address] | | | | | | [phone] | | | +--------+ + + + [...] be of any assistance. [address], [facility], [place] Pager# [phone] documented i n this encounter Plan of [...] Rd | | | | | | [place], [place] | | | | | | [address] | | | | | | [phone] | | | | | | | | +--------+---------+ + + + documented as of this encounter Visit Diagnoses Not on filedocumented in this encounter"
--- OUTSIDE RECORDS SUMMARY | ~2020-04-17 | XMS | Encounter Summary ---
Demographics + + + | Address | [address] | | | [place] [address] | + + + | Home Phone [...] [place], [place] | | | | | [address] | | + + + + + | Ellie Vang | ECON | Unknown | | + + + + + Care Team Providers + +------+ + | Care Hops Farmworker Name | Role | Phone | [...] | | | | | bypass | [place], | [facility], | | | | | Nausea and | [place] | 10th Floor | | | | | vomiting, | [address] | [place], [place] | | | | | intractabili | Phone: | [phone] | | | | | ty of | | Phone: | | | | | vomiting not | Fax: | [phone] | | | | | specified, | [phone] | Fax: | | | | | unspecified | | [phone] | | | | | vomiting | [...] | | | | | bypass | [place], | [place] [facility] | | | | | Nausea and | [place] | Health and | | | | | vomiting, | [address] | Healing, | | | | | intractabili | Phone: | Building 1, | | | | | ty of | [phone] | 5th Floor | | | | | vomiting not | Fax: | [place], [place] | | | | | specified, | [phone] | [address] | | | | | unspecified | | Phone: | | | | | vomiting | | [phone] | | | | | type | [...] | | | | | bypass | [place], | [facility] and | | | | | Nausea and | [place] | Healing, | | | | | vomiting, | [address] | [address] 2 | | | | | intractabili | Phone: | [place], [place] | | | | | ty of | | [address] | | | | | vomiting not | Fax: | Phone: | | | | | specified, | [phone] | [phone] | | | | | unspecified | | Fax: | | | | | vomiting | | [phone] | | | | | type | [...] | [facility] | | | with FIRST LEVELER | | hypertension | [address] | [address] | | | | | Right | [address] | [address] | | | | | heart | [place], [place] | [facility] [place] [facility] | | | | | failure | [address] | Health and | | | | | ([facility]) Type | Phone: | Healing, | | | | | 2 diabetes | [phone] | Building 2 | | | | | mellitus | Fax: | [place], [place] | | | | | without | [phone] | [address] | | | | | complication | | Phone: | | | | | , with | | | | | | | long-term | | Fax: | | | | | current use | | [phone] | | | | | of insulin | | | | | | | ([facility]) | | | | | [...] | 2019 | Visit | Center at [facility] [address] | AGACNP [address] | gastric bypass | | | | [address] | Ave [place], [place] | (Primary Dx); Nausea | | | | for Health and | [address] | and vomiting, | | | | Healing, Building 2 | [phone] | intractability of | | | | [facility] [place] | | vomiting not | | | | [address] | | specified, | | | | [...] 1:50 PM PDTSpoke with patient's PCP office [phone] and notified them that Infusion unit at [facility] (fax [phone]) requires a provider with privileges there to sign the IV infusion orders. Since Dr. Cardenas is out on maternity leave, SOFI Ulrich will check with provider covering. Infusion order and chart not e faxed to PCP at [phone]. Patient notified. harli Zayas - 03/01/2019 1:50 [...] Allergic rhinitis Anemia Anxiety Bipolar disorder ([facility]) Chronic wound infection of abdomen from 2010 Cough Depression Diverticulitis of colon Dizziness Glaucoma Heart burn Hemorrhoids Hernia of abdominal wall Incisional hernia, incarcerated 2012 Insomnia Irregular periods Kidney stone Leaking of urine Leg sore Lymphedema Morbid obesity with body mass index of 70 and over in adult ([facility]) Myalgia and myositis Nausea Neck pain Numbness Osteoarthritis of knee Palpitations Pneumonia Shortness of breath Staphylococcal infection Stroke ([facility]) TIA (transient ischemic attack) due [...] Brian Incisional hernia repair 03/01/2015 [facility]/ Dr. Cantu. Primary fascial closure and scar excision Lap gastric byp, and nilesh-en-y gastroenterostomy w/ nilesh limb 150 cm or less 8 [facility] Dannie SR Social History Socioeconomic History Marital [...] file Gets together: Not on file Attends druze service: Not on file Active member of club or organization: Not on file Attends meetings of clubs or organizations: Not on file Relationship status: Not on file Other Topics Concern Not on file Social History Narrative Updated 11/09/15 She lives in [place] with her mother and her sister (also her caregiver) [facility]. She has 2 grandchildren (age 4 and 7) who live with her daughter and son-in-law Her boyfriend lives in [place] HFpEF, DM2, HTN, Sleep Apnea (unable to tolerate CPAP), Hypothyroidism, Severe Obesity ([facility] max weight 495 lbs) Last seen [...] program here and refer her to our integrity specialist who also has expertise in physical [...] buccal film, , Disp: , Rfl: CALCIUM CRB&UYT-L3-DVU26-GENIS ORAL, Take 2 tablets by mouth two [...] iron) oral tablet, Take 1 tablet by az ut once daily., Disp: 90 tablet, Rfl: [...] be administered closer to her home in [place]. LR 1-2 L 3 times weekly, until [...] to plan and will call and/or send [employer] message if any issues. Start time 1422, end time 1455. I spent a total of 33 minutes face to face with this patie nt. Over 50% of visit was in counseling. ALBINA Perrin Bariatric Surgery Nurse Practitioner [facility] | [address] | [place], [place] | [address] | documented in th is encounter Plan [...] Grace | | | | | | [place], [place] | | | | | | [address] | | | | | | [phone] | | | | | | | [...] Note | + + | Service Account, Ele.me In Interface - 03/08/2019 3:33 PM PDT [...] + + + + | [facility] | [address] | [place] [address] | | | SERVICES, CORE | PARK [...] B: | | | | | | [employer].com/CSPerformed | | | | | | by [employer],[address] | | | | | | Natalia Parson [facility],[place] | | | | | | [address] | | | | | | [phone].ZAO Begun[employer]. | | | | | | Ismael [...] [facility] | [address] | [place], [place] | | | UNIV PTH - INTFC | | [address] | | + + + + + [...] [facility] | | | (YEN NOAH) | [facility],500 | | REG UNIV | | | SERUM | Natalia Parson, [facility],[place] | | PTH - INTFC | | | | [address] | | | | | | [phone].arMONOCOlab. | | | | | | Ismael [...] B: | | | | | | ZAO [employer]/JUANPABLO | | | | + + + + + + + + | Specimen | + + | Blood - Blood | | (substance) | + + + + + + + | Performing | Address | City/State/Zipcode | Phone Number | | Organization | | | | + + + + + | [facility] | [address] | [place], [place] | | | UNIV PTH - INTFC | | [address] | | + + + + + [...] | [facility] | [address] | [place] [address] | | | SERVICES, CORE | CLARENCE [...] [facility] | [address] | [place] [address] | | | SERVICES, CORE | PARK [...] B: | | | | | | [employer]/CSPerformed | | | | | | by [employer],[address] | | | | | | Natalia Parson, [facility],[place] | | | | | | [address] | | | | | | [phone].[employer]. | | | | | | WellAWARE SystemsIsmael MD, | | | | | | [...] [facility] | [address] | [place], [place] | | | UNIV PTH - INTFC | | [address] | | + + + + + [...] INTFC | | | | determined by [employer] | | | | | | [employer]. See | | | | | | Compliance Statement B: | | | | | | [employer]/CSPerformed | | | | | | by [employer],[address] | | | | | | Natalia Parson [facility],[place] | | | | | | [address] | | | | | | [phone].[employer]. | | | | | | [...] [facility] | [address] | [place], [place] | | | UNIV PTH - INTFC | | [address] | | + + + + + [...] | [facility] | [address] | [place] [address] | | | SERVICES, CORE | PARK [...] B: | | | | | | ZAO Begun[employer].com/CSPerformed | | | | | | by [employer],[address] | | | | | | [facility] | | | | | | [address] | | | | | | [phone].[employer]. | | | | | | [...] [facility] | [address] | [place], [place] | | | UNIV PTH - INTFC | | [address] | | + + + + + [...] + | [facility] | [address] | [place] [address] | | | SERVICES, CORE | PARK [...] valves (2.5 - 3.5) INR | CLAIRE, LYDIA | + + + + + + + + | Performing | Address | City/State/Zipcode | Phone Number | | Organization | | | | + + + + + | [facility] | [address] | [place] [address] | | | LYDIA RANGEL | CLARENCE [...] [facility] | [address] | [place] [address] | | | SERVICES, SPECIAL | PARK [...] | + + + + + | [facility] | [address] | [place] [address] | | | LYDIA RANGEL | CLARENCE [...] | | | | | determined by [employer] | | | | | | Laboratories. See | | | | | | Compliance Statement B: | | | | | | [employer]/CSPerformed | | | | | | by [employer],[address] | | | | | | [facility],[place] | | | | | | [address] | | | | | | [phone].[employer]. | | | | | | com, [...] [facility] | [address] | [place], [place] | | | UNIV PTH - INTFC | | [address] | | + + + + + [...] MDRD equation recommended by the National | [facility] | | Kidney Disease Education Program. Estimated [...] + | [facility] | [address] | [place] [address] | | | SERVICES, CORE | PARK [...]
--- OUTSIDE RECORDS SUMMARY | ~2020-04-17 | XMS | Encounter Summary ---
Demographics + + + | Address | [address] | | | [place] [address] | + + + | Home Phone [...] Providers + +------+ + | Care Equipment Scheduler Name | Role | Phone | + +------+ + PCP | Unavailable | + +------+ + Encounter Details +--------+ + + + + | Date | Type | Department | Care Team | Description | +--------+ + + + + | 06/19/ | Hospital | [facility] | Fadi Goodrich, | | | 2002 | Encounter | CONVERSION DEP [address] | DO [address] | | | | | [address] | [place], [place] | | | | | [place], [place] | [address] | | | | | [address] | | | | | | [phone] | | | +--------+ + + + [...] | | | | | [place] [address] | | | | | | [phone] | | | | | | | | +--------+ + + + + documented as of this encounter Visit Diagnoses Not on filedocumented in this encounter"
--- OUTSIDE RECORDS SUMMARY | ~2020-04-17 | XMS | Encounter Summary ---
Demographics + + + | Address | [address] | | | [place] [address] | + + + | Home Phone [...] [place], [place] | | | | | [address] | | + + + + + | Ellie Vang | ECON | Unknown | | + + + + + Care Team Providers + +------+ + | Care Barrel Inspector Name | Role | Phone [...] | [facility] | | | with RECEIVING TELLER | | hypertension | [address] | [address] | | | | | Right | [address] | [address] | | | | | heart | [place], [place] | Center for | | | | | failure | [address] | Health and | | | | | ([facility]) Type | Phone: | Healing, | | | | | 2 diabetes | [phone] | Building 2 | | | | | mellitus | Fax: | [place], [place] | | | | | without | [phone] | [address] | | | | | complication | | Phone: | | | | | , with | | [phone] | | | | | long-term | | Fax: | | | | | current use | | [phone] | | | | | of insulin | | | | | | | ([facility]) | | | | | | [...] | 2019 | Visit | Center at [facility] [address] | STAFF FORESTER [address] | gastric bypass | | | | [address] | [place], [place] | (Primary Dx); | | | | for Health and | [address] | Intertriginous | | | | Healing, Building 2 | [phone] | candidiasis | | | | [place], [place] | | | | | | [address] | | | | | | [phone] | | | +--------+---------+ + + + [...] Has a new PCP, Dr. Cardenas in [facility]. Bariatric Measures: Activity: walking 1.5-2 [...] index of 70 and over in adult ([facility]) Myalgia and myositis Nausea Neck pain Numbness Osteoarthritis of knee Palpitations Pneumonia Shortness of breath Staphylococcal infection Stroke ([facility]) TIA (transient ischemic attack) due [...] cm or less 8 [facility] Social History Social History Marital status: [...] daughter and son-in-law Her boyfriend lives in [place] HFpEF, DM2, HTN, Sleep Apnea (unable to [...] here and refer her to our public transit specialist who also has expertise in physical [...] tongue once daily., Disp: , Rfl: CALCIUM CRB&DGJ-L1-EHV86-GENIS ORAL, Take 2 tablets by mouth two [...] n/a -HTN: still on medications -Diabetes: seeing juvenile court judge in December, hopes to eliminate Metformin then as recent A1c was normal Return to bariatric clinic in 6 months for 1 year follow up visit See your primary care provider for adjusting any other medications. Call if any abdominal pain, n/v/d or other issues. Pt agrees to plan and will call and/or send [employer] message if any issues. Start time 2:45, end time 3:10. I spent a total of 25 minutes face to face with this patie nt. Over 50% of visit was in counseling. HILDA Davalos Bariatric Surgery Nurse Practitioner [facility] | [address] | [place], [place] | [address] | documented in this encounter Miscellaneous Notes [...] [place] | | | | | | [address] | | | | | | [phone] | | | | | | | [...] [facility] | [address] | [place] [address] | | | SERVICES, CORE | PARK [...] [facility] | [address] | [place] [address] | | | SERVICES, CORE | CLARENCE [...] B: | | | | | | [employer]/CSPerformed | | | | | | by [employer],500 | | | | | | Liliana [facility] | | | | | | [address] | | | | | | [phone].iFlexMe. | | | | | | Blink for iPhone and AndroidIsmael MD, | | | | | | [...] | UNIV PTH - INTFC | | [address] | | + + + + + ZINC, SERUM (10/12/2018 3:29 PM PDT) + + + + + + | Component | Value | Ref Range | Performed | Pathologist | | | | | At | Signature | + + + + + + | ZINC SERUM | 58 (L)Comment: | 60 - 120 ug/dL | [facility] | | | | INTERPRETIVE | [...] | | | | determined by [facility] | | | | | | Laboratories. See | | | | | | Compliance Statement B: | | | | | | iFlexMe.Blink for iPhone and Android/CSPerformed | | | | | | by [employer],500 | | | | | | Liliana Martinez [facility],[place] | | | | | | [address] | | | | | | [phone].Voltage Securitylab. | | | | | | com, [...] | UNIV PTH - INTFC | | [address] | | + + + + + [...] [facility] | | | (YEN NOAH) | [facility],500 | | REG UNIV | | | SERUM | Liliana Martinez, [facility],[place] | | PTH - INTFC | | | | [address] | | | | | | [phone].aruplab. | | | | | | alta [...] | | | | determined by [facility] | | | | | | Laboratories. See | | | | | | Compliance Statement B: | | | | | | iFlexMe.[facility]/ | | | | + + + [...] | UNIV PTH - INTFC | | [address] | | + + + + + [...] [facility] | [address] | [place] [address] | | | SERVICES, CORE | PARK [...] [facility] | [address] | [place] [address] | | | SERVICES, LYDIA | CLARENCE [...] | | | | determined by [facility] | | | | | | Laboratories. See | | | | | | Compliance Statement B: | | | | | | iFlexMe.Blink for iPhone and Android/CSPerformed | | | | | | by [employer],500 | | | | | | Liliana Martinez, [facility],[place] | | | | | | [address] | | | | | | [phone].Volt[employer] Securitylab. | | | | | | comIsmael [...] | UNIV PTH - INTFC | | [address] | | + + + + + [...] [facility] | [address] | [place] [id number] | | | SERVICES, [facility] | [address] | | | + [...] | | | | | determined by [email or web address] | | | | | | Laboratories. See | | | | | | Compliance Statement B: | | | | | | [employer]/CSPerformed | | | | | | by [employer],[address] | | | | | | Liliana Martinez, [facility],[place] | | | | | | [address] | | | | | | [phone].iFlexMe. | | | | | | Ismael [...] | UNIV PTH - INTFC | | [address] | | + + + + + [...] | + + + + + | [email or web address] | [address] | [place] [address] | | | SERVICES, CORE | CLARENCE [...] [facility] | [address] | [place] [address] | | | SERVICES, SPECIAL | PARK [...] [facility] | [address] | [place] [address] | | | SERVICES, CORE | CLARENCE [...] at | | | | | | www.iFlexMe.Blink for iPhone and Android/csPerfor | | | | | | med by [facility] | | | | | | Laboratories,[address] | | | | | | [place], [place] [address] | | | | | | [phone].iFlexMe. | | | | | | alta [...] | UNIV PTH - INTFC | | [address] | | + + [...] + + + + | [facility] | [address] | [place] [address] | | | SERVICES, CORE | CLARENCE [...]
--- OUTSIDE RECORDS SUMMARY | ~2020-04-17 | XMS | Encounter Summary ---
Demographics + + + | Address | [address] | | | [place] [address] | + + + | Home Phone [...] [place], [place] | | | | | [address] | | + + + + + | Ellie Vang | ECON | Unknown | | + + + + + Care Team Providers + +------+ + | Care Band Attacher Name | Role | Phone | + +------+ + | Fadi Goodrich DO | PCP | | + +------+ + Encounter Details +--------+ + + + + | Date | Type | Department | Care Team | Description | +--------+ + + + + | 10/12/ | Telephone | Digestive Health | Hernandez Brian, | | | 2012 | | [place] [address] [address] | MD [address] [facility] | | | | | [facility] | [facility] | | | | | for Health and | [place], [place] | | | | | [facility] 2 | [address] | | | | | [place], [place] | [phone] | | | | | [address] | | | | | | [phone] | | | +--------+ + + + [...] this encounter Miscellaneous Notes Telephone Encounter - Kelvin Candy - 10/12/2012 11:38 AM PDTPt calling requesting Dr Aimee fulton to write a note to [facility] Seniors w/Disabilities re her 10/07 office visit. I s/w Katalina at [facility] (TEL [phone]), she said a fax will suffice. The following was faxed: Date: 10/12/2012 To: [facility] - Ronnell Darden From: Candy RE: Elzbieta Cristina 1975 Message: This is to confirm Elzbieta Cristina was at the [email or web address] on 10/07/2012 for an office visit with Dr Levi Brian. If you have any questions, please call our office . Thank you. documented in t his encounter Plan of [...] Rd | | | | | | [place] | | | | | | [address] | | | | | | [phone] | | | | | | | | +--------+---------+ + + + documented as of this encounter Visit Diagnoses Not on filedocumented in this encounter"
--- OUTSIDE RECORDS SUMMARY | ~2020-04-17 | XMS | Encounter Summary ---
Demographics + + + | Address | [address] | | | [place] [address] | + + + | Home Phone [...] + | Katalina Padilla | ECON | [address] | | | | | [place], [place] | | | | | [address] | | + + + + + | Ellie Vang | ECON | Unknown | | + + + + + Care Team Providers + +------+ + | Care Linoleum Mechanic Name | Role | Phone | [...] [facility] [address] | PLUMBING ENGINEER [address] | | | | | [address] [facility] | [facility] [address] | | | | | [facility] and | [place], [place] | | | | | [facility] 2 | [address] | | | | | [place], [place] | [phone] | | | | | [address] | | | | | | [phone] | | | +--------+ + + + [...] istratively closed with the authorization of the [facility] Committee. elephone Encounter - Sheree Arnett MA - 04/17/2014 5:15 PM PDTWill ask our home care scheduler to set up appt with our dieti ela. Previously seen Olga Lidia. elephone Encounter - Samanta Hoff - 04/17/2014 4:24 PM PDTPatient calling to seek adv ice on how to lose an extra 25 pounds. She stated she is 392 pounds and is having a hard mitesh e losing anymore weight. She was advised to go on a liquid diet by her crnp. Please call back to follow up. Tdocumented in this encounter Plan of Treatment +--------+---------+ + + + | Date | Type | Specialty | Care Team | Description | +--------+---------+ + + + | 06/08/ | Office | Plastic Surgery | Antoinette Hale, | | | 2019 | Visit | | MD [address] | | | | | | [address] | | | | | | [place], [place] | | | | | | [address] | | | | | | [phone] | | | | | | | | +--------+---------+ + + + documented as of this encounter Visit Diagnoses Not on filedocumented in this encounter"
--- OUTSIDE RECORDS SUMMARY | ~2020-04-17 | XMS | Encounter Summary ---
Demographics + + + | Address | [address] | | | [place] [address] | + + + | Home Phone [...] [place], [place] | | | | | [address] | | + + + + + | Ellie Vang | ECON | Unknown | | + + + + + Care Team Providers + +------+ + | Care Dust Puller Name | Role | Phone | + +------+ + | Jorje Hill MD | PCP | | + +------+ + Encounter Details +--------+ + + + + | Date | Type | Department | Care Team | Description | +--------+ + + + + | 03/01/ | Procedure | Diagnostic Imaging | | | | 2019 | Pass | Services at [facility] | | | | | | [address] | | | | | | Lesly [place]A | | | | | | [address] | | | | | | [place], [place] | | | | | | [address] | | | | | | [phone] | | | +--------+ + + + [...] Rd | | | | | | [place], [place] | | | | | | [address] | | | | | | [phone] | | | | | | | | +--------+---------+ + + + documented as of this encounter Visit Diagnoses Not on filedocumented in this encounter"
--- OUTSIDE RECORDS SUMMARY | ~2020-04-17 | XMS | Encounter Summary ---
Demographics + + + | Address | [address] | | | [place] [address] | + + + | Home Phone [...] [place], [place] | | | | | [address] | | + + + + + | Ellie Vang | ECON | Unknown | | + + + + + Care Team Providers + +------+ + | Care Conservation Planner Name | Role | Phone | [...] 2018 | | Center at [facility] [address] | ACNP [address] | | | | | [address] | Ave [place], [place] | | | | | for Health and | [address] | | | | | [facility] 2 | [phone] | | | | | [place], [place] | | | | | | [address] | | | | | | | [...] | Office | Plastic Surgery | Antoinette Hael, | | | 2019 | Visit | | [address] | | | | | | [address] | | | | | | [place], [place] | | | | | | [address] | | | | | | [phone] | | | | | | | | +--------+---------+ + + + documented as of this encounter Visit Diagnoses Not on filedocumented in this encounter
--- OUTSIDE RECORDS SUMMARY | ~2020-04-17 | XMS | Encounter Summary ---
Demographics + + + | Address | [address] | | | [place] [address] | + + + | Home Phone [...] + | Katalina Padilla | ECON | [address] | | | | | [place], [place] | | | | | [address] | | + + + + + | Ellie Vang | ECON | Unknown | | + + + + + Care Team Providers + +------+ + | Care General Assistant Name | Role | Phone | [...] Dx) | | | | Surgery at [facility] [address] | [place], [place] | | | | | [address] [place] | [address] | | | | | for Health and | [phone] | | | | | [facility], [address], | | | | | | 5th Floor | | | | | | [place], [place] | | | | | | [address] | | | | | | [phone] | | | +--------+---------+ + + + [...] De La Cruz - 05/13/2019 2:30 PM PDTFormatting of this note might be different from th e original. PANNICULECTOMY CONSULT HPI: Elzbieta Cristina is a [...] less 8 [facility] Cholecystectomy, laparoscopic Allergies Allergen Reactions [...] 50 mg by mouth once daily. CALCIUM CRB&TAE-W8-FTT01-GENIS ORAL Take 2 tablets by mouth two [...] | | 2019 | Visit | | [address] | | | | | | [address] | | | | | | [place], [place] | | | | | | [address] | | | | | | [phone] | | | | | | | | +--------+---------+ + + + documented as of this encounter Visit Diagnoses + + | Diagnosis | + + | Excess skin of abdomen - Primary Unspecified hypertrophic and atrophic condition of | | skin | + + documented in this encounter
--- OUTSIDE RECORDS SUMMARY | ~2020-04-17 | XMS | Encounter Summary ---
Demographics + + + | Address | [address] | | | [place] [address] | + + + | Home Phone | | + + + | Preferred Language | Unknown | + + + | Marital Status | | + + + | Muslim Affiliation | Unknown | + + + [...] Team Providers + +------+ + | Care Beet Worker Name | Role | Phone | + +------+ + | Jorje Hill | PCP | | + +------+ + Encounter Details +--------+ + + + + | Date | Type | Department | Care Team | Description | +--------+ + + + + | 01/01/ | Orders Only | [facility] | Augustine Fu MD | Hyperparathyroidism | | 2020 | | NEPHR[place] | [address] [place] | (HCC) (Primary Dx); | | | | [address] [place] | [address] [place], [place] | CKD (chronic kidney | | | | [address] [place], [place] | [address] | disease) stage 2, | | | | [address] | | GFR 60-89 ml/min; | | | | [phone] | | HTN, goal below | | [...] D | | | | | | [place] [address] | | | | | | [phone] | | | | | | | [...]
--- OUTSIDE RECORDS SUMMARY | ~2020-04-17 | XMS | Encounter Summary ---
Demographics + + + | Address | [address] | | | [place] [address] | + + + | Home Phone [...] | Author | [facility] | | | and Jeffana | + + + | Organization | [facility] | | [...] Team Providers + +------+ + | Care Pulper Tender Name | Role | Phone | [...] [address] | | | | | | [facility] [place] | | | | | | [address] | | | | | | [phone] | | | +--------+ + + + [...] | | | | | [place] [address] | | | | | | [phone] | | | | | | | | +--------+ + + + + documented as of this encounter Visit Diagnoses + + | Diagnosis | + + | Absence of menstruation | + + documented in this encounter"
--- OUTSIDE RECORDS SUMMARY | ~2020-04-17 | XMS | Encounter Summary ---
Demographics + + + | Address | [address] | | | [place] [address] | + + + | Home Phone [...] [place], [place] | | | | | [address] | | + + + + + | Ellie Vang | ECON | Unknown | | + + + + + Care Team Providers + +------+ + | Care Bone Tender Name | Role | Phone | + +------+ + | Fadi Goodrich DO | PCP | | + +------+ + Encounter Details +--------+ + + + + | Date | Type | Department | Care Team | Description | +--------+ + + + + | 10/04/ | Abstract | Digestive Health | Hernandez Brian, | | | 2012 | | [place] [address] [address] | [address] | | | | | [address] [facility] | [facility] | | | | | for Health and | [place], [place] | | | | | [facility] 2 | [address] | | | | | [place], [place] | [phone] | | | | | [address] | | | | | | [phone] | | | +--------+ + + + [...] | | | | | | [place] | | | | | | [address] | | | | | | [phone] | | | | | | | | +--------+---------+ + + + documented as of this encounter Visit Diagnoses Not on filedocumented in this encounter"
--- OUTSIDE RECORDS SUMMARY | ~2020-04-17 | XMS | Encounter Summary ---
Demographics + + + | Address | [address] | | | [place] [address] | + + + | Home Phone [...] [place], [place] | | | | | [address] | | + + + + + | Ellie Vang | ECON | Unknown | | + + + + + Care Team Providers + +------+ + | Care Rubber Cutter And Shape Carver Name | Role | Phone | + [...] | | 2016 | | Preventive at [facility] | MD [address] | | | | | [address] | [place], [place] | | | | | [facility] | [address] | | | | | and [place], | [phone] | | | | | [place] [address] | | | | | | [place], [place] | | | | | | [address] | | | | | | [phone] | | | +--------+ + + + [...] MA - 02/25/2016 3:04 PM PDTI called [facility] in [place], [place] for visit notes from the following [...] Rd | | | | | | [place], [place] | | | | | | [address] | | | | | | [phone] | | | | | | | | +--------+---------+ + + + documented as of this encounter Visit Diagnoses Not on filedocumented in this encounter"
--- OUTSIDE RECORDS SUMMARY | ~2020-04-17 | XMS | Encounter Summary ---
Demographics + + + | Address | [address] | | | [place] [address] | + + + | Home Phone [...] [place], [place] | | | | | [address] | | + + + + + | Ellie Vang | ECON | Unknown | | + + + + + Care Team Providers + +------+ + | Care Piano Maker Name | Role | Phone | + +------+ + | Fadi Goodrich DO | PCP | | + +------+ + Encounter Details +--------+ + + + + | Date | Type | Department | Care Team | Description | +--------+ + + + + | 06/02/ | Telephone | Digestive Health | Ronna Clarke, | | | 2018 | | Center at [facility] [address] | ACNP [address] | | | | | [address] | Ave [place], [place] | | | | | for Health and | [address] | | | | | [facility], [facility] 2 | [phone] | | | | | [place], [place] | | | | | | [address] | | | | | | | [...] were faxed to PCP Dr. Goodrich through [employer]. documented in this encounter Plan of Treatment +--------+---------+ + + + | Date | Type | Specialty | Care Team | Description | +--------+---------+ + + + | 06/08/ | Office | Plastic Surgery | Antoinette Hale, | | | 2019 | Visit | | MD [address] | | | | | | [address] | | | | | | [place], [place] | | | | | | [address] | | | | | | [phone] | | | | | | | | +--------+---------+ + + + documented as of this encounter Visit Diagnoses Not on filedocumented in this encounter"
--- OUTSIDE RECORDS SUMMARY | ~2020-04-17 | XMS | Encounter Summary ---
Demographics + + + | Address | [address] | | | [place] [address] | + + + | Home Phone [...] + | Katalina Padilla | ECON | [address] | | | | | [place], [place] | | | | | [address] | | + + + + + | Ellie Vang | ECON | Unknown | | + + + + + Care Team Providers + +------+ + | Care Brush Sander Name | Role | Phone | + [...] | | | [address] | [place], [place] | | | | | [address] | [address] | | | | | [address], | [phone] | | | | | [address] [place] [address], | | | | | | [place] [address] | | | | | | [phone] | | | +--------+ + + + [...] [address] | | | | | | [place], [place] | | | | | | [address] | | | | | | [phone] | | | | | | | | +--------+---------+ + + + documented as of this encounter Visit Diagnoses Not on filedocumented in this encounter
--- OUTSIDE RECORDS SUMMARY | ~2020-04-17 | XMS | Encounter Summary ---
Demographics + + + | Address | [address] | | | [place] [address] | + + + | Home Phone [...] [place], [place] | | | | | [address] | | + + + + + | Ellie Vang | ECON | Unknown | | + + + + + Care Team Providers + +------+ + | Care Checkering Machine Adjuster Name | Role | Phone | + +------+ + | Fadi Goodrich DO | PCP | | + +------+ + Encounter Details +--------+ + + + + | Date | Type | Department | Care Team | Description | +--------+ + + + + | 06/09/ | Abstract | Digestive Health | Kathy Feldman, | | | 2012 | | [place] [address] | [employer] [address] | | | | | [facility] | [facility] 350 | | | | | for Health and | [place], [place] | | | | | [facility] 2 | [address] | | | | | [place], [place] | [phone] | | | | | [address] | | | | | | [phone] | | | +--------+ + + + [...] | | 2019 | Visit | | [address] | | | | | | [address] | | | | | | [place], [place] | | | | | | [address] | | | | | | [phone] | | | | | | | | +--------+---------+ + + + documented as of this encounter Visit Diagnoses Not on filedocumented in this encounter"
--- OUTSIDE RECORDS SUMMARY | ~2020-04-17 | XMS | Encounter Summary ---
Demographics + + + | Address | [address] | | | [place] [address] | + + + | Home Phone [...] [place], [place] | | | | | [address] | | + + + + + | Ellie Vang | ECON | Unknown | | + + + + + Care Team Providers + +------+ + | Care Environmental Remediation Specialist Name | Role | Phone | [...] Bariatric Nutrition | | 2014 | | [place] at [facility] 34[address] | [facility], [place] [address] | (11/03 and 11/06 phone | | | | [facility] | [address] | calls) | | | | for Health and | [place], [place] | | | | | [place] [address] | [address] | | | | | [place], [place] | [phone] | | | | | [address] | | | | | | [phone] | | | +--------+ + + + [...] 11/15/2014 8:17 AM PDTSpoke with Elzbieta Ordaz's bowling alley manager on 11/03 and 11/06 (also see [...] assistance. I discussed these concerns with her bowling alley manager, and our team (MD, RN, PHOTONICS ENGINEERING TECHNOLOGIST). I encouraged closer f/u with her PCP given that Elzbieta lives in [place] (~3.5 hours away). Elzbieta has a follow up with HA at [facility] December 26 (the earliest she can afford to come in). I am available to assist RN, PCP & any other i nterested parties as needed until then. See RD notes from visits in Chart Review section. Yuli Childs RD, [facility], [place] Pager# [phone] documented teddy marcelino this encounter Plan of Treatment +--------+---------+ + [...] [place] | | | | | | [address] | | | | | | [phone] | | | | | | | | +--------+---------+ + + + documented as of this encounter Visit Diagnoses Not on filedocumented in this encounter"
--- OUTSIDE RECORDS SUMMARY | ~2020-04-17 | XMS | Clinical Summary ---
Demographics + + + | Address | [address] | | | [place] [address] | + + + | Home Phone [...] + + + | Author | [facility] | + + + | Organization | [facility] | + + + [...] [place], [place] | | | | | [address] | | + + + + + | Ellie Vang | ECON | Unknown | | + + + + + Care Team Providers + +------+ + | Care Dry Cleaning Machine Operator Helper Name | Role | Phone | + +------+ + | Jorje Hill MD | PCP | | + +------+ + Source Comments KALEYORIN is fully live on both EpicCare Ambulatory and EpicCare InPatient.[facility] Allergies + + + + + [...] 0 | | | Activ | | [id number] | mouth two times | | | [...] | + + + +---+------+---+-------+ | thyroid (CUSTOMER SOLUTIONS REPRESENTATIVE | Take 30 mg by mouth | [...] mouth three times | tablet | | 8 | | e | | tabletIndications: | [...] | | + + + +---+------+---+-------+ | mupirocin 2 % | Apply a thin layer | 22 g | 2 | 09/0 | | Activ | | topical | to affected skin | | | 04/15 | | e | | ointmentIndications: | BID. Continue for | | | 20 | | | | soft tissue | 1-2 days after area | | | | | | | infection | is free of | | | | | | | | redness/irritation. | | | | | | | | Indications: skin | | | | | | | | infection | | | | | | + + + +---+------+---+-------+ | hydrocortisone 2.5 | Apply a thin layer | 30 g | 2 | 09/0 | | Activ | | % topical | to affected skin | | | /20 | | e | | creamIndications: | BID. Continue for | | | 20 | | | | S/P gastric bypass, | 1-2 days after area | | | | | | | Abdominal | is free of | | | | | | | panniculus, | redness/irritation. | | | | | | | Abdominal | | | | | | | | panniculus, | | | | | | | | symptomatic, | | | | | | | | Intertriginous | | | | | | | | candidiasis, Skin | | | | | | | | breakdown | | | | | | | + + + +---+------+---+-------+ | clotrimazole 1 % | Apply a thin layer | 30 g | 2 | 09/0 | | Activ | | topical | to affected skin | | | /20 | | e | | creamIndications: | BID. Continue for | | | 20 | | | | soft tissue | 1-2 days after area | | | | | | | infection | is free of | | | | | | | | redness/irritation. | | | | | | | | Indications: skin | | | | | | | | infection | | | | | | + + + +---+------+---+-------+ | nystatin 100,000 | Apply to affected | 15 g | 2 | 09/0 | | Activ | | unit/gram topical | area two times | | | 04/15 | | e | | powderIndications: | daily. Apply to | | | 20 | | | | soft tissue | [...] | | 2019 | cheloveled | | RETAIL PRODUCT DEMO SPECIALIST | | +--------+ + + + + [...] Rd | | | | | | [place], [place] | | | | | | [address] | | | | | | [phone] | | | | | | | [...] Reinforcement Staple Line | | | [facility] | | 04/25/ | 12BSGE | | Bioabsorbable Sterile | | | [employer] | | 2019 | [id number] / | | Seamguard Latex Free | | | | | | | | Disposable Blue Gold Green - | | | | | | /[id number] | | [id number]: Qty: 1 on | | | | | | 525 | | 03/01/2018 by Ion Pandey | | | | | | | | MD Vinicius at [facility] | | | | | [...] - | | | | | | /[id number] | | [id number]: Qty: 1 on | | | | | | 173 | | 03/01/2018 by Ion Pandey | | | | | | | | MD Vinicius at [facility] | | | | | | [...] | | | + +--------+ +--------+-------+---------+--------+ | TABLE ASSEMBLER MEDICAID | TABLE ASSEMBLER | [id number] | | | | Medica | | [...] mireya | | | 3 (Home) | [address] | + +--------+ +--------+ + + Advance [...]
--- OUTSIDE RECORDS SUMMARY | ~2020-04-17 | XMS | Encounter Summary ---
Demographics + + + | Address | [address] | | | [place] [address] | + + + | Home Phone [...] [place], [place] | | | | | [address] | | + + + + + | Ellie Vang | ECON | Unknown | | + + + + + Care Team Providers + +------+ + | Care Powder Carrier Name | Role | Phone | + +------+ + | Fadi Goodrich DO | PCP | | + +------+ + Reason for Visit + +--------+ + | Reason | Onset | Comments | | | Date | | + +--------+ + | Discussion | 11/08/ | | | | 2015 | | + +--------+ + Encounter Details +--------+ + + + + | Date | Type | Department | Care Team | Description | +--------+ + + + + | 11/08/ | Telephone | Digestive Health | Shereen Georges, | Discussion | | 2015 | | Center at [facility] [address] | ACNP [address] | | | | | [address] [facility] | e [place], [place] | | | | | [facility] and | [address] | | | | | [facility], [facility] 2 | [phone] | | | | | [place], [place] | | | | | | [address] | | | | | | [phone] | | | +--------+ + + + [...] Telephone Encounter - Gris Fontana RN - 11/08/2014 12:55 PM DIETERI called and spoke with Jessica wallace. She has concerns that the patient has been told conflicting information about what i s required to proceed with bariatric surgery. She is concerned that the patient does not un derstand what she has been told about the process. She is also concerned that the patient d oes not understand the filter helper instructions and that she is taking in too few calories and has been having issues with her blood sugar and ketosis. I explained to Parul that at Elzbieta's initial appointment in 2012, it was recommended that she lose 20 pounds. However, after further discussion with our surgeon, the requirement wa s changed to 50 pounds because extra loss of weight will improve surgical outcomes. Parul asked if this was explained to Elzbieta and I told her that it was documented in our 10/02/14 of fice visit note that 'hand-written information' had been provided to her regarding the incre ased weight loss requirement. I also reviewed the filter helper's most recent visit note and told Parul that there was noth ing documented about calorie restriction, that the filter helper recommended following the Liver Reduction Diet and to make generally healthier choices. I recommended that Elzbieta should follow up with her PCP regarding her blood sugars and ketos is and explained to Parul that we do not manage insulin on any of our patients. Parul wild ontinued to express concern about the blood sugars and seemed to be confused about what to d o. I again instructed her to have Elzbieta follow up with her PCP. Parul stated that her PC P is out of town for a week. I instructed her to have Elzbieta follow up with the MD covering for her PCP. Parul stated that her PCP works alone. I instructed her to have Elzbieta felipe w up with any other PCP that would be covered by her insurance. Parul works for [employer] so I asked if she could make that referral or if she would like us to make it. Parul stated that she will wait for Elzbieta's current PCP to return but she is 'worried she'll end up in the ED'. I stated again that if Parul is so concerned about Elzbieta's sug ars that she could actually end up in the ED, she should refer Elzbieta to another PCP. Johann amezcua again stated she would wait for the current PCP. I encouraged Parul to call us back with further questions/concerns. I also told Parul that I would speak to the team here to see if we can set up an individual session for Elzbieta with the filter helper. I sent a separate [employer] message to our dynamometer tester engine, RD and POWER DIGGER OPERATOR re: setting up an individual filter helper appt. document ed in this encounter Plan of Treatment +--------+---------+ + + + | Date | Type | Specialty | Care Team | Description | +--------+---------+ + + + | 06/08/ | Office | Plastic Surgery | Antoinette Hale, | | | 2019 | Visit | | [address] | | | | | | [address] | | | | | | [place] | | | | | | [address] | | | | | | [phone] | | | | | | | | +--------+---------+ + + + documented as of this encounter Visit Diagnoses Not on filedocumented in this encounter"
--- OUTSIDE RECORDS SUMMARY | ~2020-04-17 | XMS | Encounter Summary ---
Demographics + + + | Address | [address] | | | [place] [address] | + + + | Home Phone [...] [place], [place] | | | | | [address] | | + + + + + | Ellie Vang | ECON | Unknown | | + + + + + Care Team Providers + +------+ + | Care Greenhouse Staff Name | Role | Phone | [...] 2014 | | Preventive at [facility] | MD [address] | | | | | [address] | [place], [place] | | | | | [facility] | [address] | | | | | and [place], | [phone] | | | | | [address] | | | | | | [facility] [place] | | | | | | [address] | | | | | | [phone] | | | +--------+ + + + [...] | | 2019 | Visit | | [address] | | | | | | [address] | | | | | | [place], [place] | | | | | | [address] | | | | | | [phone] | | | | | | | | +--------+---------+ + + + documented as of this encounter Visit Diagnoses Not on filedocumented in this encounter"
--- OUTSIDE RECORDS SUMMARY | ~2020-04-17 | XMS | Encounter Summary ---
Demographics + + + | Address | [address] | | | [place] [address] | + + + | Home Phone [...] [place], [place] | | | | | [address] | | + + + + + | Ellie Vang | ECON | Unknown | | + + + + + Care Team Providers + +------+ + | Care Call Out Clerk Name | Role | Phone | + +------+ + | Fadi Goodrich DO | PCP | | + +------+ + Encounter Details +--------+ + + + + | Date | Type | Department | Care Team | Description | +--------+ + + + + | 12/12/ | Emergency | [facility] | | | | 2014 - | | Department [address] | | | | | | [address] | | | | 05/20/ | | [facility] | | | | 2014 | | [place], [place] | | | | | | [address] | | | | | | [phone] | | | +--------+ + + + [...] Keerthi Clarke MD at 12/13/2014 12:17 AM [facility] Ion Moreno - 12/13/2014 12:[address]. [address] from today and in September look the same. No e vidence of obstuction. No BM x 2 weeks per pt. Consult only. [facility] Jason Moreno - 12/12/2014 11:58 PM PDTMorbidly obese, hernia repair at [facility] last January, CT at [facility] a month ago. Now c/o new her [...] Rd | | | | | | [place] | | | | | | [address] | | | | | | [phone] | | | | | | | | +--------+---------+ + + + documented as of this encounter Visit Diagnoses Not on filedocumented in this encounter"
--- OUTSIDE RECORDS SUMMARY | ~2020-04-17 | XMS | Encounter Summary ---
Demographics + + + | Address | [address] | | | [place] [address] | + + + | Home Phone [...] [place], [place] | | | | | [address] | | + + + + + [...] | | | | | | [place], [place] | | | | | | [address] | | | | | | [phone] | | | +--------+ + + + [...] | | 2019 | Visit | | [address] | | | | | | [address] | | | | | | [place], [place] | | | | | | [address] | | | | | | [phone] | | | | | | | | +--------+---------+ + + + documented as of this encounter Visit Diagnoses Not on filedocumented in this encounter"
--- OUTSIDE RECORDS SUMMARY | ~2020-04-17 | XMS | Encounter Summary ---
Demographics + + + | Address | [address] | | | [place] [address] | + + + | Home Phone [...] [place], [place] | | | | | [address] | | + + + + + | Ellie Vang | ECON | Unknown | | + + + + + Care Team Providers + +------+ + | Care Core Maker Helper Name | Role | Phone | [...] Flannery | (Phentermine) | | | | [place] at | [place], [place] | | | | | [place] [address] | [address] | | | | | [facility] | [phone] | | | | | [facility] | | | | | | [place], [place] | | | | | | [address] | | | | | | [phone] | | | +--------+ + + + [...] a verbal [facility] [address] [place] [address] [id number] signed by Eda Morris MA at 02/24/2020 2:52 PM PDTTelephone Encounter - Ellie Dumont - 02/24/2020 1:32 PM PDTPt is calling regarding Rx for Phentermine. Pharmacy did not receive fax and pt is out of medication. Please refax and call pt [facility]. . elephone Encounter - Ellie Dumont - 02/24/2020 1:31 PM PDTREFILL REQUEST [facility] Medication(s) Needed: Phentermine Pharmacy (Name & Location) Preference: [facility] How many days worth of medication does patient have left? Please refax Rx ~~~ ROUTE TO P CAR MED REFILL ~~~ ~~~ If less than 2 days on hand, route as HIGH PRIORITY~~~ elephone Encounter - Ellie Dumont - 02/24/2020 12:00 PM PDTPt called to check status of Rx. [facility] pharmacy has not rece ived Rx. Please resend Rx for PHENTERMINE 37.5 mg oral tablet. Pt is out of medication. Vianca sousa call pt to confirm ph: [phone]. 12 :03 PM PDTTelephone Encounter - Marcus Dorseya - 02/24/2020 10:01 AM PDTREFILL REQUEST Person calling: Elzbieta Cristina Patient states that medication approval has not been received by pharmacy. Please call roel marcelino Medication(s) Needed: PHENTERMINE 37.5 mg oral tablet Pharmacy (Name & Location) Preference: [facility] - [place], [place] [address] [phone] How many days worth of medication does [...] | | 2019 | Visit | | [address] | | | | | | [address] | | | | | | [place], [place] | | | | | | [address] | | | | | | [phone] | | | | | | | | +--------+---------+ + + + documented as of this encounter Visit Diagnoses Not on filedocumented in this encounter"
--- OUTSIDE RECORDS SUMMARY | ~2020-04-17 | XMS | Encounter Summary ---
Demographics + + + | Address | [address] | | | [place] [address] | + + + | Home Phone [...] [place], [place] | | | | | [address] | | + + + + + | Ellie Vang | ECON | Unknown | | + + + + + Care Team Providers + +------+ + | Care Computer Drafter Name | Role | Phone | [...] | | | | [address] [place] | [place], [place] | | | | | [facility] and | [address] | | | | | [facility] 2 | [phone] | | | | | [place], [place] | | | | | | [address] | | | | | | [phone] | | | +--------+ + + + [...] | | | | | | [place], [place] | | | | | | [address] | | | | | | [phone] | | | | | | | | +--------+---------+ + + + documented as of this encounter Visit Diagnoses Not on filedocumented in this encounter"
--- OUTSIDE RECORDS SUMMARY | ~2020-04-17 | XMS | Encounter Summary ---
Demographics + + + | Address | [address] | | | [place] [address] | + + + | Home Phone [...] [place], [place] | | | | | [address] | | + + + + + | Ellie Vang | ECON | Unknown | | + + + + + Care Team Providers + +------+ + | Care Oxyacetylene Welder Name | Role | Phone | [...] Rd | | | | | | [place], [place] | | | | | | [address] | | | | | | [phone] | | | | | | | | +--------+---------+ + + + documented as of this encounter Visit Diagnoses Not on filedocumented in this encounter"
--- OUTSIDE RECORDS SUMMARY | ~2020-04-17 | XMS | Encounter Summary ---
[...] [place], [place] | | | | | [address] | | + + + + + | Ellie Vang | ECON | Unknown | | + + + + + Care Team Providers + +------+ + | Care Administrative Representative Name | Role | Phone | [...] Davis | | | | | [facility] | [facility] | | | | | Hospital Admitting | [place] [address] | | | | | Desk Located on the | [phone] | | | | | 9th floor | | | | | | [place], [place] | [place], | | | | | [address] | EXTERMINATOR HELPER TERMITE | | +--------+ + + + + Anesthesia Record + + + + + | Procedure Name | Responsible | Anesthesia Start | Anesthesia Stop Time | | | Anesthesiologist | Time | | + + + + + | OPEN VENTRAL HERNIA | Andie Hope MD | 08/19/19 1417 | 08/19/19 5196 | | REPAIR (N/A ) | | [...] mL; 08/20/19; | Angelica Ga RN | Anrulfo Goodman CNA | | Mahin | 0955; Per order | | | | er | | | | +--------+ + + + | ETT | 08/19/19; 1435 (created via | 08/19/19 1435 by | 08/19/19 1720 by | | | procedure documentation); Hubmle Louie | [place], | Sheree Herrmann, | | | , POLINA; Endotracheal | EXTERMINATOR HELPER TERMITE | EXTERMINATOR HELPER TERMITE | | | Tube; 7.5; Oral; Cuffed; [...] be different from the original. Elzbieta Cristina [id number] Vitals Value Taken Time BP 107/67 08/19/2019 [...] - 08/19/2019 1:53 PM PST Elzbieta Cristina [id number] Allergies Allergen Reactions Benadrilina [Diphenhydramine Hcl] Hives [...] Dr. Andie Brian Incisional hernia repair 03/01/2015 [facility]/ Dr. Cantu. Primary fascial closure and scar excision Lap gastric byp, and nilesh-en-y gastroenterostomy w/ nilesh limb 150 cm or less [facility], Dr Pandey Cholecystectomy, laparoscopic Current Medication List Name Sig Last Dose ALPRAZOLAM 1 MG TABLET Take 1 mg by mouth three times daily as needed. 08/18/2019 ASCORBIC ACID (VITAMIN C) 500 MG TABLET Take 1 tablet by mouth once daily. 08/18/2019 ATENOLOL 50 MG TABLET Take 50 mg by mouth once daily at bedtime. Within last 7 days CALCIUM CRB&NDK-A4-ZIC19-GENIS ORAL Take 2 tablets by mouth two [...] Date RATE 110 02/22/2018 ATRIALRATE 110 02/22/2018 NV 170 02/22/2018 QRS 98 02/22/2018 QT 339 [...] renal failure no electrolyte abnormalities no dialysis Urology/Production Operations Manager: LMP: Jul 27, 2019, Mirena IUD Within [...] renal failure no electrolyte abnormalities no dialysis Urology/Production Operations Manager: LMP: Jul 27, 2019, Mirena IUD Within [...] for 08/19/2019 Open Ventral Hernia Repair at [facility] by Jorje andersen MD. Past medical hx [...] | | 2019 | Visit | | [address] | | | | | | [address] | | | | | | [place], [place] | | | | | | [address] | | | | | | [phone] | | | | | | | [...]
--- OUTSIDE RECORDS SUMMARY | ~2020-04-17 | XMS | Encounter Summary ---
Demographics + + + | Address | [address] | | | [place] [address] | [...] [place], [place] | | | | | [address] | | + + + + + | Ellie Vang | ECON | Unknown | | + + + + + Care Team Providers + +------+ + | Care Museum Docent Name | Role | Phone | + [...] 11/08/ | Telephone | Cardiology | Randell Frakns, | Care Coordination | | 2015 | | Preventive at [facility] | [address] | | | | | [address] | [place], [place] | | | | | [facility] | [address] | | | | | and [place], | [phone] | | | | | [place] [address] | | | | | | [place], [place] | | | | | | [address] | | | | | | [phone] | | | +--------+ + + + [...] Corazon Alexis RN - 11/08/2014 12:05 PM [facility] office received a letter (see abstract uploaded under Shereen Pinto 11/06/14). Parul Chan (RN Case Dell ) is requesting more information regarding the status of Ms Cristina's bariatric surgery. She i s also Requesting Dr Franks's last two visit notes. -Referred back to bariatric surgery department for updates regarding bariatric sugery -Will fax over last 2 visit notes to [phone] signed by Corazon Alexis RN at 11/08/2014 [...] Rd | | | | | | [place], [place] | | | | | | [address] | | | | | | [phone] | | | | | | | | +--------+---------+ + + + documented as of this encounter Visit Diagnoses Not on filedocumented in this encounter"
--- OUTSIDE RECORDS SUMMARY | ~2020-04-17 | XMS | Encounter Summary ---
Demographics + + + | Address | [address] | | | [place] [address] | + + + | Home Phone [...] [place], [place] | | | | | [address] | | + + + + + | Ellie Vang | ECON | Unknown | | + + + + + Care Team Providers + +------+ + | Care Plant Operator Helper Name | Role | Phone [...] | 2012 | | Center at [facility] [address] | ACNP [address] | | | | | [address] | [place], [place] | | | | | for Health and | [address] | | | | | [facility] | | | | | | [place], [place] | | | | | | [address] | | | | | | | [...] | | 2019 | Visit | | [address] | | | | | | [address] | | | | | | [place], [place] | | | | | | [address] | | | | | | [phone] | | | | | | | | +--------+---------+ + + + documented as of this encounter Visit Diagnoses Not on filedocumented in this encounter"
--- OUTSIDE RECORDS SUMMARY | ~2020-04-17 | XMS | Encounter Summary ---
Demographics + + + | Address | [address] | | | [place] [address] | + + + | Home Phone [...] [place], [place] | | | | | [address] | | + + + + + | Ellie Vang | ECON | Unknown | | + + + + + Care Team Providers + +------+ + | Care Weekend Anchor Name | Role | Phone | + [...] (PHENTERMINE 37.5 mg | | | | [place] at | [place], [place] | ); Refill Request | | | | [place] [address] | [address] | | | | | [facility] | [phone] | | | | | [facility] | | | | | | [place], [place] | | | | | | [address] | | | | | | [phone] | | | +--------+ + + + [...] do not yet have an appointment in [facility], route to the spar machine operator of the discharging double end chucking machine operator. See discharge summary for i nformation~~~ elephone [...] Seen By Ordering Provider: Last Appointment in [place] [address] was on 12/25 11/12 at 3:35 pm with Randell Franks MD. Follow Up Plan: Next Appointment in [facility] is on 09/15/19 at 4:15 [...] | | 2019 | Visit | | [address] | | | | | | [address] | | | | | | [place] | | | | | | [address] | | | | | | [phone] | | | | | | | | +--------+---------+ + + + documented as of this encounter Visit Diagnoses Not on filedocumented in this encounter"
--- OUTSIDE RECORDS SUMMARY | ~2020-04-17 | XMS | Encounter Summary ---
[...] [place], [place] | | | | | [address] | | + + + + + | Ellie Vang | ECON | Unknown | | + + + + + Care Team Providers + +------+ + | Care Manager Zone Name | Role | Phone | + [...] + + | 02/07/ | Hospital | [address] | Milana Landaverde, | | | 2014 - | Encounter | [address] | [address] | | | | | [place], [place] | [address] | | | 02/08/ | | [address] | [place], [place] | | | 2013 | | [phone] | [address] | | | | | | [phone] | | | | | | | [...] note. PRADIP STARR MD [facility] [address] [place] [address] orrest, Maryam Yu MD - 01/24 1:05 PM PDT [facility] DEPARTMENT OF SURGERY EMERGENCY GENERAL SURGERY Division of Trauma and Critical Care INPATIENT PROVIDER DISCHARGE SUMMARY Note Date: 02/08/2014 Admission Date: 02/07/2014 DYLAN ROMERO, Discharge Date: 08 Feb 2014 PCP: Fadi Goodrich DO Attending Physician: Milana Landaverde MD Author: MARYAM RHODES MD HPI: Dylan Romero is a 38 y.o. Female with morbid obesity, bipolar disorder and Type 2 DM who presented to the [facility] ED ([place], [place]) on 02/06/14, with a week hi story of RUQ abdominal pain that radiates to her back. There, she was found to have leukocyt osis and multiple tiny, mobile stones, + sonographic Peterson's sign on abdominal ultrasound, concerning for acute cholecystitis. She was givenIV antibiotics (cipro, flagyl) and pain med s, then transferred to [facility] by [facility] for further care. Ms. Romero endorsed [...] DO. Contact information [address] [facility] [place] [address] Follow up with Trauma Emergency General Surgery at [facility] In 4 weeks. (follow up in 2-4 weeks ) Contact information [address] [facility] Mailcode: L223a [facility] [address] [place] [address] Thank you for the opportunity to take care of DYLAN ROMERO during this inpatient stay, it has been our pleasure. Please call with any questions, . Discharging Provider: MARYAM RHODES MD PGY-1, General Surgery Attending Physician: Milana Landaverde MD documented in this encounte r [...] note. PRADIP STARR MD [facility] [address] [facility] [place] [address] orrest, Maryam Yu MD - 01/24 5:17 AM PDT [facility] DEPARTMENT OF SURGERY EMERGENCY GENERAL SURGERY Division [...] tolerated MARYAM RHODES MD PGY-1, General Surgery [phone] pager number [facility] [place] [address] [place] [address] documented in this encounte r H&P Notes Milana Landaverde MD - 02/07/2014 3:31 AM PDTI saw and evaluated the patient. I agree with the findings and the plan of care as documented in the resident s note. MILANA LANDAVERDE MD [address] [address] Stephanie Esposito MD,MPH - 02/07/2014 3:31 AM PDTFormatting of this note might be different from the origi nal. HISTORY AND PHYSICAL CC: abdominal pain HPI: Dylan Romero is a 38 y.o. Female with morbid obesity, bipolar disorder and Type 2 DM who presented to the [facility] ED ([place], [place]) on 02/06/14, with a week hi story of RUQ abdominal pain that radiates to her back. There, she was found to have leukocyt osis and multiple tiny, mobile stones, + sonographic Peterson's sign on abdominal ultrasound, concerning for acute cholecystitis. She was given iv antibiotics (cipro, flagyl) and pain m eds, then transferred to [facility] by [facility] for further care. Ms. Romero endorses 02/02 sharp, constant RUQ abdominal pain accompanied [...] Tam Burnham Md - 02/07/2014 7:28 PM PDTLuba aguero and evaluated the patient. I agree with the findings and the plan of care as documented i n the resident s note. PRADIP STARR MD [facility] [address] [place] [address] I was present for the entire procedure as described in the note for this encounter. PRADIP STARR MD [facility] [address] [place] [address] Jacquelin Melendez MD - 0 02/07/2014 7:28 PM [...] note. PRADIP STARR MD [facility] [address] [place] [address] Francisco Snowden MD - 01/24 6:44 PM [...] 0 Initial surgical contact: EGS at pager [phone] documented in this encounte r Miscellaneous Notes [...] Events of this stay (w/date): Transfer from [facility] PmHx: DMII;Migraines; open appy; umbilical hernia repair [...] Events of this stay (w/date): Transfer from [facility] Pmx: DMII;Migraines; open appy; umbilical hernia repair x1; [...] source of abdominal pain Discharge plan: TBD Lissette Daniels RN - 02/07/2014 8:26 PM PDTMegagandeep Phase [...] pain medication information: none Functional Epidural: No MASTER FIRE CONTROL TECHNICIAN: No Respiratory: RR: 19, O2 Sat: 96 [...] FC Contact Name: Ellie Vang Contact Number: [phone] Family contacted: Yes Comment: Belongings:in Pt's room can - Other, [facility] ulty - 02/07/2014 9:24 AM PDT can [...] Type 2 DM who presented to the [facility] ED ([place], [place]) on 01/24 11/07, with a week history of RUQ abdominal pain that radiates to her back. There, she was fo und to have leukocytosis and multiple tiny, mobile stones, concerning for acute cholecystit is. She was given iv antibiotics (cipro, flagyl) and pain meds, then transferred to [facility] by [facility] for further care. Pre-admission living situation: Lives in [facility] Pre-admission functional status: Hx of obesity Family/support system: Mother, Katalina Insurance/funding in place: [employer] Anticipated case management discharge needs: Will follow for any needs from CM depar tment See MD notes, AVS and any ancillary consultation notes for further discharge or f/u needs. Mary Alice Strauss RN, CM pager [phone] [facility] - Jayant Levine - 02/07/2014 3:04 AM PDTLF req extra help on the pad. Pt is obese. ED Charg e and Patient Transportation advised. 14 3:04 AM [facility] Alexia Oconnell - 02/07/2014 3:03 AM PDTPt is large, LF12 req uesting extra help to the helipad. 3: 03 AM [facility] Alexia Oconnell - 02/07/2014 3:00 AM PDTLF12 enr, ETA [...] Events of this stay (w/date): Transfer from [facility] Pmx: DMII;Migraines; Lap appy; abdominal hernia repair x2; [...] source of abdominal pain Discharge plan: TBD [facility] Jayant Capps - 02/06/2014 9:24 PM PDTGRP 18 Paged. [facility] - 02/06/2014 9:14 PM [id number]; Poss. Cholecystitis; Abd pain; Vom & Diarrhea. Morbid obesity 400+lbs. Upper Quad Tenderness. White count [address]. EGS Dr. Akhil he Accepts pt REQ 10A. Electronically signed by Jayant mart 02/06/2014 9:16 PM [facility]en[facility] HospitalJayant moraes - 02/06/2014 8:[address] Renee KHAN. documente d in this encounter Plan of Treatment +--------+---------+ + + + | Date | Type | Specialty | Care Team | Description | +--------+---------+ + + + | 06/08/ | Office | Plastic Surgery | Antoinette Hale, | | | 2019 | Visit | | [address] | | | | | | [facility] | | | | | | [place], [place] | | | | | | [address] | | | | | | [phone] | | | | | | | [...] MARQUAM | [address] | [place], [place] | | | JUSTINE DAWN OF CARE | [address] | [address] | | | TESTS | | | [...] YAKOVAM | [address] | [place], [place] | | | [place] POINT OF CARE | [address] | [address] | | | TESTS | | | [...] AMES | [address] | [place], [place] | | | JUSTINE DAWN OF JAKY | [address] | [address] | | | TESTS | | | [...] MARQUAM | [address] | [place], [place] | | | JUSTINE DAWN OF CARE | [address] | [address] | | | TESTS | | | [...] [facility] | [address] | [place] [address] | | | SERVICES, | [address] [...] + + + | [facility] | [address] | [place] [address] | | | SERVICES, | [address] [...] MARQUAM | [address] | [place], [place] | | | [place] POINT OF [facility] | [facility] | [address] | | | TESTS | | | [...] LABORATORY | [address] | [place] [address] | | | SERVICES, CORE | [address] [...] | + + + + + | Instant Information | [address] | [place] [address] | | | SERVICES, CORE | PARK [...] + | [facility] | [address] | [place] [address] | | | SERVICES, CORE | PARK [...] | + + + + + | [facility] | [address] | [place] [address] | | | CLAIRE, CORE | [address]ARENCE [...] + + + | [facility] [employer] | [address] | [place] [address] | | | SERVICES, CORE | [address]ARENCE [...] MARQUAM | [address] | [place], [place] | | | [place] POINT OF CARE | [facility] | [address] | | | TESTS | | | [...] pattern. | | | | | | Chief Of Safety And Protection | | | | | | sections [...] + + + | [facility] | [address] | [place] [address] | | | PATHOLOGY | [address] [...] ciprofloxacin (CIPRO) IV 400 mg | New | 02/08/20 | 400 mg | | [...] | | | | at 1905, Until e 02/07/14 at | | | | | [...]
--- OUTSIDE RECORDS SUMMARY | ~2020-04-17 | XMS | Encounter Summary ---
Demographics + + + | Address | [address] | | | [place] [address] | + + + | Home Phone [...] [place], [place] | | | | | [address] | | + + + + + | lElie Vang | ECON | Unknown | | + + + + + Care Team Providers + +------+ + | Care Cpr Ambulance Driver Name | Role | Phone | [...] Rd | | | | | | [place], [place] | | | | | | [address] | | | | | | [phone] | | | | | | | | +--------+---------+ + + + documented as of this encounter Visit Diagnoses Not on filedocumented in this encounter"
--- OUTSIDE RECORDS SUMMARY | ~2020-04-17 | XMS | Encounter Summary ---
Demographics + + + | Address | [address] | | | [place] [address] | + + + | Home Phone [...] | + + +---------+ + | Katalina aPdilla | ECON | Unknown | | + + +---------+ + | Ellie Barnett | ECON | Unknown | | + + +---------+ + Care Team Providers + +------+ + | Care Assistant Professor Of German Name | Role | Phone | + [...] + + | 06/21/ | Telephone | [facility] | Christian Dawson, | Pre-Op (confirm | | 2018 | | CENTER CV INTRA OP | MD [address] | arrival for 06/22 | | | | [address] | DMITRI GUTIERREZ, | procedure) | | | | [place] | [place] [address] | | | | | [address] | [phone] | | | | | [phone] | | | +--------+ + + + [...] D | | | | | | [place] [address] | | | | | | [phone] | | | | | | | | +--------+ + + + + documented as of this encounter Visit Diagnoses Not on filedocumented in this encounter"
--- OUTSIDE RECORDS SUMMARY | ~2020-04-17 | XMS | Encounter Summary ---
Demographics + + + | Address | [address] | | | [place] [address] | + + + | Home Phone [...] [place], [place] | | | | | [address] | | + + + + + | Ellie Vang | ECON | Unknown | | + + + + + Care Team Providers + +------+ + | Care Clerk Travel Reservations Name | Role | Phone | + +------+ + | Jorje Hill MD | PCP | | + +------+ + Encounter Details +--------+ + + + + | Date | Type | Department | Care Team | Description | +--------+ + + + + | 03/18/ | Transcribe | NKECHI alonso [facility] | Transcribe | | | 2019 | Orders | [facility] [address] | Encounter, Provider, | | | | | Brenton Flannery Mukilteo for | MD [address] | | | | | Health and Healing, | [place] [address] | | | | | Building [address] | | | | | | [place], [place] | | | | | | [address] | | | | | | [phone] | | | +--------+ + + + [...] Rd | | | | | | [place], [place] | | | | | | [address] | | | | | | [phone] | | | | | | | | +--------+---------+ + + + documented as of this encounter Results EGD (04/07/2019 10:53 AM PDT) + + | Specimen | + + | | + + + + + | Narrative | Performed At | + + + | MRN: | [facility] | | [id number] Date: 04/07/2019Patient Name: Elzbieta Curtis #: | ENDOSCOPY | | [id number] of : 1975CSN: [id number] Type: | | | AmbulatoryRoom: Endo 5Procedure: Upper GI | | | endoscopyIndications: Generalized abdominal pain, Nausea | | | with vomitingProviders: TAL LUND MD | | | (Doctor), BERNARDO BERNARD RN (Nurse), | | | GENECREST SLATER (Awning Erector)Referring MD: SYLVIA Kilpatrick | | | RASTA [...] | | | The [employer] [id number] Endoscope #[id number] | | | was introduced through the [...]
--- OUTSIDE RECORDS SUMMARY | ~2020-04-17 | XMS | Encounter Summary ---
Demographics + + + | Address | [address] | | | [place] [address] | + + + | Home Phone [...] [place], [place] | | | | | [address] | | + + + + + | Ellie Vang | ECON | Unknown | | + + + + + Care Team Providers + +------+ + | Care Marine Photographer Name | Role | Phone | [...] [address] | [place], [place] | mg) | | | | [facility] | [address] | | | | | and [place], | [phone] | | | | | [facility] | | | | | | [place], [place] | | | | | | [address] | | | | | | [phone] | | | +--------+ + + + [...] Prior Auth for Farxiga medication on Cover [employer]. Office note attached. Will await at least 5 business days. Routing to SOFI to call and check on status. ele phone Encounter - Rhona Mccullough MA - 12/01/2016 11:33 AM PDTI received a covermymeds request from the patients pharmacy [facility] for FARXIGA. I placed the form in the folder for the RN to complete the PA on [email or web address] with the de la cruz: [id number] signed by Rhona andersen MA at 12/01/2016 11:35 AM PDTdocumented in this encounter Plan of Treatment +--------+---------+ + + + | Date | Type | Specialty | Care Team | Description | +--------+---------+ + + + | 06/08/ | Office | Plastic Surgery | Antoinette Hale, | | | 2019 | Visit | | [address] [facility] | | | | | | [address] | | | | | | [place], [place] | | | | | | [address] | | | | | | [phone] | | | | | | | | +--------+---------+ + + + documented as of this encounter Visit Diagnoses Not on filedocumented in this encounter"
--- OUTSIDE RECORDS SUMMARY | ~2020-04-17 | XMS | Encounter Summary ---
Demographics + + + | Address | [address] | | | [place] [address] | + + + | Home Phone [...] [place], [place] | | | | | [address] | | + + + + + | Ellie Vang | ECON | Unknown | | + + + + + Care Team Providers + +------+ + | Care Sewage Plant Supervisor Name | Role | Phone [...] Diabetes & | Morbid | Kathy M, WELLNESS PROGRAM COORDINATOR | [address] | | | | Metabolism | obesity | [address] | Pavilion | | | | | (HCC) | [address], | Loop | | | | | Procedures | [address] | Physician's | | | | | CONSULT TO | [place], [place] | Pavilion | | | | | ENDO | [address] | Physician's | | | | | [address] | Phone: | Pavilion | | | | | | [phone] | [place], [place] | | | | | | Fax: | [address] | | | | | | [phone] | Phone: | | | | | | | [phone] | | | | | | | Fax: | | | | | | | [phone] | +--------+--------+ + + + + Encounter [...] | | | Center at Physicians | [place], [place] | (Primary Dx); Morbid | | | | [address] | [address] | obesity (HCC) | | | | [address] | [phone] | | | | | Physician's Pavilion | | | | | | Physician's | | | | | | Pavilion [place], | | | | | | [place] [address] | | | | | | [phone] | | | +--------+---------+ + + + [...] Rd | | | | | | [place], [place] | | | | | | [address] | | | | | | [phone] | | | | | | | [...]
--- OUTSIDE RECORDS SUMMARY | ~2020-04-17 | XMS | Encounter Summary ---
Demographics + + + | Address | [address] | | | [place] [address] | + + + | Home Phone [...] + +------+ + | Care Office Machines Teacher Name | Role | Phone | [...] Closed | | Radiology | Diagnoses | [facility] | | | | | Deep vein | Dharmesh | Intra Op [address] | | | | | thrombosis | MD Natan | [address] | | | | | (DVT) of | [address] | [place], [place] | | | | | left lower | [address] | [address] | | | | | extremity, | [address] | Phone: | | | | | unspecified | [place], [place] | [phone] | | | | | chronicity, | [address] | Fax: | | | | | unspecified | Phone: | [phone] | | | | | vein (HCC) | [phone] | | | | | | Procedures | Fax: | | | | | | IR Removal | [phone] | | | | | | Fibrin | | | | | | | Sheath/Clot | | | | | | | on Device | | | +--------+--------+ + + + + Encounter Details +--------+ + + + + | Date | Type | Department | Care Team | Description | +--------+ + + + + | 06/20/ | Hospital | [facility] | Dharmesh Melchor | Canceled (OTHER) | | 2019 | Encounter | CENTER IR INTRA OP | MD [address] | | | | | [address] | [address] | | | | | [place], [place] | [place] [address] | | | | | [address] | [phone] | | | | | [phone] | | | | | | | Christian Dawson MD | | | | | | [address] | | | | | | [address] [place], [place] | | | | | | [address] | | | | | | | [...] | 2019 | visit | | [address] | [address] | | | | | | [place] [address] | | | | | | [phone] | | | | | | | [...]
--- OUTSIDE RECORDS SUMMARY | ~2020-04-17 | XMS | Encounter Summary ---
Demographics + + + | Address | [address] | | | [place] [address] | + + + | Home Phone [...] [place], [place] | | | | | [address] | | + + + + + | Ellie Vang | ECON | Unknown | | + + + + + Care Team Providers + +------+ + | Care Lining Ironer Name | Role | Phone | [...] floor | | | | | | [place], [place] | | | | | | [address] | | | +--------+ + + + [...] [place] | | | | | | [address] | | | | | | [place] | | | | | | [address] | | | | | | [phone] | | | | | | | | +--------+---------+ + + + documented as of this encounter Visit Diagnoses Not on filedocumented in this encounter"
--- OUTSIDE RECORDS SUMMARY | ~2020-04-17 | XMS | Encounter Summary ---
Demographics + + + | Address | [address] | | | [place] [address] | + + + | Home Phone [...] [place], [place] | | | | | [address] | | + + + + + | Ellie Vang | ECON | Unknown | | + + + + + Care Team Providers + +------+ + | Care E Commerce Merchant Name | Role | Phone | + +------+ + | Fadi Goodrich DO | PCP | | + +------+ + Encounter Details +--------+ + + + + | Date | Type | Department | Care Team | Description | +--------+ + + + + | 02/13/ | Telephone | Cardiology | Randell Franks, | | | 2016 | | Preventive at [facility] | MD [address] | | | | | [address] | [facility] [place] | | | | | [facility] | [address] | | | | | and [place], | [phone] | | | | | [address] | | | | | | [facility] [place] | | | | | | [address] | | | | | | [phone] | | | +--------+ + + + [...] 3:16 PM Maribel Cooley NP calling from [facility] is at capacity with 10 people waiting to be admitted. Patient is being transferred to [facility] to get treatment. elephone Encounter - Corazon Alexis RN - 02/15/2016 2:0 7 PM DAVID spoke with the LIVESTOCK FARM MANAGER at [facility] caring for Elzbieta. She reports patient was admitted there 01/10/16, 01/30/16, and 02/09/16. She encouraged me to get the records from those admissi ons. She said that they were waiting to get labs back on Elzbieta before deciding what the plan is. She reports that Elzbieta is currently requiring 2 L O2 via NC. The LIVESTOCK FARM MANAGER will call me back a nd provide [...] has further questions. Electronically signed by Corazon Alexis RN at 02/14 12:28 PM PDTTelephone Encounter - Corazon Alexis RN - 02/15/2016 12:18 PM PDT11/05 admission note faxed to Sarah ERElectronically signed by Corazon Alexis RN at 12:18 PM PDTTelephone Encounter - Corazon Alexis RN - 02/15/2016 12:15 PM PDTI spoke with KELSIE Solano -advised that I will be faxing over the 11/06/15 admission notes from [facility]. . P DTTelephone Encounter - Corazon Alexis [...] RN - 02/15/2016 12:00 PM PDTI called [facility] in [place] and spok e with KELSIE Duggan. SBAR [...] be admitted and they can't facilitate at [facility], they c an transfer to [facility] by calling [phone]. Olga Lidia appreciated call. Advised that I will ask patient to call the ambulance now. I provid ed Olga Lidia with my callback number. 16 12:07 PM PDTTelephone Encounter - Corazon Alexis RN - 02/15/2016 11:51 AM PDTMistirma wild alling in-she is calling to let me know she is getting ready to call the ambulance to go to [facility]. She reports no acute worsening of symptoms. Advised that I will call the ER at [facility] t o alert them patient [...] AM DAVID spoke with Parul-She talked with Raqule capellan yesterday about going in to the [...] care for her). Patient was was at [facility] and treated for hypokalemia on 02/09/16, but did not diuresis her. Parul reports molly t patient is symptomatic- dyspneic and unable to get up from her chair without assistance (w as able to prior). I advised that since patient is symptomatic, she should be taken to the [facility] emergency room to be stabilized. If they can not diuresis Elzbieta she can be transferre d to a facility, such as [facility] where she can be treated. I provided Parul the phone number for the [facility] transfer center-[phone]. I encouraged her to talk with treating ER vivian jamil to relay concerns that she fells Elzbieta needs to be admitted for IV diuresis. elephone Encounte r - Corazon Alexis RN - 02/14/2016 3:35 PM PDTLVM for Parul Chan RN -Patient do es not need to come to [facility] for diuresis, unless they are not comfortable managing it in [facility]. We can help facilitate getting you information to get her admitted prn. I also wante d to check to see if you have been in contact with patients box builder regarding weight ga in. I requested a call back. 3 :37 PM PDTTelephone Encounter - Corazon Alexis RN - 02/14/2016 3:32 [address] spoke with Dr Franks-Patient does not need to come to [facility] for diuresis, however, if they do not feel comfortable managing her diuresis in [facility] the local box builder managing Elzbieta can ca ll [facility] admitting [phone] to facilitate admission to [facility]. elephone Encounter - Corazon Alexis RN - [...] Rd | | | | | | [place], [place] | | | | | | [address] | | | | | | [phone] | | | | | | | | +--------+---------+ + + + documented as of this encounter Visit Diagnoses Not on filedocumented in this encounter
--- OUTSIDE RECORDS SUMMARY | ~2020-04-17 | XMS | Encounter Summary ---
Demographics + + + | Address | [address] | | | [place] [address] | + + + | Home Phone [...] [place], [place] | | | | | [address] | | + + + + + | Ellie Vang | ECON | Unknown | | + + + + + Care Team Providers + +------+ + | Care Manager Of Investigations Name | Role | Phone | + +------+ + | Fadi Goodrich DO | PCP | | + +------+ + Encounter Details +--------+ + + + + | Date | Type | Department | Care Team | Description | +--------+ + + + + | 12/05/ | Abstract | Cardiology | Randell Franks, | | | 2016 | | Preventive at [facility] | MD [address] | | | | | [address] | [place], [place] | | | | | [facility] | [address] | | | | | and [place], | [phone] | | | | | [address] | | | | | | [facility] [place] | | | | | | [address] | | | | | | [phone] | | | +--------+ + + + [...] | | 2019 | Visit | | [address] [facility] | | | | | | [address] | | | | | | [place], [place] | | | | | | [address] | | | | | | [phone] | | | | | | | | +--------+---------+ + + + documented as of this encounter Visit Diagnoses Not on filedocumented in this encounter"
--- OUTSIDE RECORDS SUMMARY | ~2020-04-17 | XMS | Encounter Summary ---
Demographics + + + | Address | [address] | | | [place] [address] | + + + | Home Phone [...] [place], [place] | | | | | [address] | | + + + + + | Ellie Vang | ECON | Unknown | | + + + + + Care Team Providers + +------+ + | Care Conduit Worker Name | Role | Phone | [...] [address] | | | | | [place], [place] | [address] | | | 03/[birth year][address] | | [address] | [place], [place] | | | 2014 | | [phone] | [address] | | | | | | [phone] | | | | | | | [...] port site who was transferre d to [facility] for concern of an incarcerated hernia. [...] mouth once daily. , Historical Med CALCIUM CRB&AYP-T2-WAP13-GENIS ORAL Take 1 tablet by mouth two [...] Randell Franks Cardiology Preventive at [facility] [phone] Cardiology 04/09/2015 1:00 PM Egs Ppv Tra Trauma Emergency General Surgery at [facility] [phone] [facility] Outstanding labs/studies: None Discharging Physician: GABO LANGSTON MD Attending Physician: Dr. Cantu PCP: Fadi Goodrich DO Signed: GABO LANGSTON MD Pager #[phone] Surgical Cook Cashier Food Prep [facility] Associated attestation - Tye Carrillo DO - 03/12/2015 9:12 AM PDTAttending: I discussed this patient with the resident and agree with the assessment and plan as outlin ed in this note and participated in the planning of care. Tye Carrillo DO, SIDRA, FACS Division of Trauma, Critical Care & Acute Care Surgery [facility] [phone] documented in this encounter Medications at Time of Discharge + + + +---------+--------+ + | Medication | Sig | Dispensed | Refills | Start | End Date | | | | | | Date | | + + + +---------+--------+ + | CALCIUM | Take 2 tablets by | | 0 | | | | CRB&YDA-D3-VBW19-GEN | mouth two times | | | [...] differ ent from the original. [facility] DEPARTMENT OF SURGERY EMERGENCY GENERAL SURGERY Division [...] obesity with known ventral hernias transferred to [facility] for surgical managem ent of ventral hernia, now s/p repair. Post surgical pain: -patient ready for d/c, discussed f/u. Patient lives far away and has other appointments at [facility]. Will attempt to coordinate appointments. Discharge Plan: D/c today GABO LANGSTON MD Pager #[phone] Surgical Cook Cashier [employer] [facility] Nataliia Mendez, Salomón Person - 03/02/2015 1:12 PM PDT [facility] DEPARTMENT OF SURGERY EMERGENCY GENERAL SURGERY Division of Trauma and Critical Care Attending Physician: Shahid Cantu MD Progress Note Note Date: 03/02/2015 Admission Date: 2015 DYLAN ROMERO, Hospital Day #2 40 F PMH morbid obesity (BMI 71 today), DM2, depression, GERD, h/o stroke at age 18, and kn own ventral hernias transferred to [facility] for surgical treatment of suspected incarcerated [...] obesity with known ventral hernias transferred to [facility] for surgical managem ent of ventral [...] will be robel ing her home to [place], [place]. CALVIN ROMERO MD PGY-1 Anesthesiology Pager: [phone] [facility] [address] [place] [address] Marleny Oneill MD - 03/02/2015 8:26 AM [id number] Calvin William Md - 03/01/2015 5:34 PM PDT Brief Post Operative Note: 40 F PMH morbid obesity (BMI 71 today), DM2, depression, GERD, h/o stroke at age 18, and kn own ventral hernias transferred to [facility] for surgical treatment of incarcerated ventral [...] control CALVIN ROMERO MD PGY-1 Anesthesiology Pager: [phone] signed by Calvin Romero Md at 03/01/2015 5:41 PM PDTdocumente d in this encounter H&P Notes Jostin Brunner MD - 2015 8:12 PM PDTFormatting of this note might be differen t from the original. Emergency General Surgery - Admission Note Patient: Dylan Romero ([id number]) Author: Jostin Brunner MD Attending: Dagoberto Colón MD Date: 2015 Reason for Admission: Abdominal pain HPI: Dylan Romero is a 40 y.o. female with morbid obesity (BMI 71 today), DM2, depressi on, GERD, h/o stroke at age 18, and known ventral hernias who is transferred to [facility] from [facility] in [place], [place] with 3 days of abdominal pain, nausea, and several episo devin of emesis yesterday. She denies fevers, chills, and overlying skin changes. Last BM was yesterday, quite hard stool. CT was performed that demonstrated two distinct hernia defects in her midline. WBC was normal, UA mildly concerning, but otherwise no lab abnormalities. oRmulo is is her third presentation to the [...] 2013. All surgeries have been performed at [facility]. She has known hernia recurrence in her ventral midline and umbilicus. She is parti cipating in the [facility] Bariatrics program and has lost 100 [...] Socal History: Lives with her mother in [place], [place] Former smoker Denies alcohol, current smoking, and illicits Prior to Admission Medications Prescriptions ALPRAZolam 1 mg oral tablet Sig: Take 1 mg by mouth three times daily as needed for anxiety. CALCIUM CRB&AQA-M1-JAB57-GENIS ORAL Sig: Take 1 tablet by mouth [...] NPO Jostin Brunner MD R3 EGS Pager: [phone] documented in this e ncounter Procedure Notes Shahid Cantu MD - 03/02/2015 9:15 AM PDTAssociated Order(s): OPERATION RECORDDate of Jacy scott: 03/01/2015 Attending Surgeon: Shahid Cantu MD Commercial Energy Auditor(s): Howie Angeles MD, R5 Marleny Galvan MD, [...] diabetes and morbid obesity with a B NC of 71, and known ventral hernia from [...] the entire procedur e. Shahid Cantu MD Stair Builder Trauma, Critical Care & Acute Care Surgery Shahid Cantu MD TBK/MODL /[id number] signed by Shahid Cantu MD at 03/05/2015 [...] Initial surgical contact: Juma Galvan at pager [phone] Associated attestation - Shahid Cantu MD - 03/02/2015 8:24 AM PDTA full operative note will be dictated by Dr. Marleny Galvan, the resident surgeon. Pursuant to federal Medicare and Medicaid regulations I was present for the entire procedur e including the critical portions. Shahid Cantu MD Stair Builder Trauma, Critical Care & Acute Care Surgery documented in this encounter Miscellaneous Notes Handoff - Jj Arizmendi RN - 03/03/2015 10:35 AM PDTNursing Handoff Patient Daily Goal: Pain will be under control (03/03/15 0015) [facility] IP NURSE HANDOFF: Jiang hospital course [...] Pain will be under control (03/03/15 0015) [facility] IP NURSE HANDOFF: COMFORT/ANXIETY/BEHAVIOR Patient Target: Patient pain level will be under control As evidenced by: Dylan wanted her 10mg of oxycodone every three hours overnight to keep her pain controlle d. She had asked to be woken up during the night when the medication was due to be given. HI N ibuprogen and tylenol was also offered in conjunction with oxycodone. NURSING ASSESSMENT & RECOMMENDATIONS FORWARD Nursing Assessment of Patient Stability Risk: Moderately stable Recommendations Forward: Continue to offer 10mg oxycodone Q 3 hrs alternating with tylenol and ibuprofen. Offer non-pharmacologic pain relief interventions in addition to pharmacologi c. andBranden Veronica RN - 03/02/2015 3:24 PM PDTNursing Handoff [facility] IP NURSE HANDOFF: Jiang hospital course [...] notes for their discharge recommendations. Please page foster care case manager if any CM arranged service needs arise. Patient states sister coming to [facility] [place] [id number] Mariah Chen RN - 03/02/2015 3:41 AM PDTNursing Handoff [facility] IP NURSE HANDOFF: Jiang hospital course [...] Additional pain medication information: Functional Epidural: No EVENT ORGANIZER: No Respiratory: RR: 20, O2 Sat: 96 %, O2 Delivery: Nasal cannula Breath Sounds: WDL Except ALFRED: clear;diminished LLL: clear;diminished RUL: clear;diminished RLL: clear;diminished AMARA No Comment: risk for AMARA due to obesity Cardiac: BP: 116/61 mmHg HR: 79 GI: Nausea/Vomiting Status: No Signs/Symptoms: Interventions: Assessment: Comments: no ponv : Last void: Ruiz Contact Name: Mom: Katalina Padilla Contact Number: [phone] Family contacted: Yes Comment: Will contact prior [...] of 4-5 in the abdomen r egion. [facility] Galina Rosas - 2015 6:15 PM PDTHernoe Fire 1475, 40 yof, needs hernia operation , almost 400 lbs, 10/10 pain, baseline is 8/10 pain, given morphine 4 hours ago before [facility], vitals BP 120 systolic, hr 80-100, [...] Gann. Transport TBD, pt on [facility] at [facility]. documented in this encounte r Plan of Treatment +--------+---------+ + + + | Date | Type | Specialty | Care Team | Description | +--------+---------+ + + + | 06/08/ | Office | Plastic Surgery | Antoinette Hale, | | | 2019 | Visit | | [address] | | | | | | [facility] | | | | | | [place], [place] | | | | | | [address] | | | | | | [phone] | | | | | | | [...] | | Attending Surgeon: Shahid Cantu MD Commercial Energy Auditor(s): Howie Angeles MD, R5 | | Marleny [...] 03/02/2015 08:25:39DT: 03/02/2015 09:15:57Job #: | | [id number] | | | |Dr. Chris Cantu was present and scrubbed for the entirety of the case. | | | | | | | |Marleny Galvan MD | | | |Pursuant to federal Medicare and Medicaid regulations I was present for the entire procedur e. | | | | | | | |Shahid Cantu MD | |Stair Builder | |Trauma, Critical Care & Acute Care Surgery | | | | | | | |Shahid Cantu MD | |TBK/MODL | | | | | | /[id number] | + ---+ CAPILLARY BLOOD GLUCOSE (NO [...] MARQUAM | [address] | [place], [place] | | | HILL, POINT OF CARE | [address] | [address] | | | TESTS | | | [...] (H) | 60 - 99 mg/dL | [facility] - | | | GLUCOSE, | | [...] MARQUAM | [address] | [place], [place] | | | JUSTINE [place] OF JAKY | [facility] | [address] | | | TESTS | | | [...] AMES | [address] | [place], [place] | | | JUSTINE DAWN OF CARE | [address] | [address] | | | TESTS | | | [...] MARQUAM | [address] | [place], [place] | | | HILL, POINT OF CARE | [address] | [address] | | | TESTS | | | [...] (H) | 60 - 99 mg/dL | [facility] - | | | GLUCOSE, | | [...] MARQUAM | [address] | [place], [place] | | | [place] | [address] | [address] | | | TESTS | | | [...] AMES | [address] | [place], [place] | | | JUSTINE DAWN OF CARE | [address] | [address] | | | TESTS | | | [...] [facility] | [address] | [place] [address] | | | SERVICES, CORE | PARK [...] | | | LABORATORY | | | [place] | | | SERVICES, | | [...] equation recommended by the | [facility] | | National Kidney Disease Education [...] | + + + + + | [facility] | [address] | [place] [address] | | | LYDIA RANGEL | CLARENCE [...] (H) | 60 - 99 mg/dL | [facility] - | | | GLUCOSE, | [...] AMES | [address] | [place], [place] | | | [place] POINT OF CARE | [address] | [address] | | | TESTS | | | [...] AMES | [address] | [place], [place] | | | JUST[place] OF JAKY | [address] | [address] | | | TESTS | | | [...] KWAKU | [address] | [place], [place] | | | JUST[place] OF [place]Y | [facility] | [address] | | | TESTS | | | [...] (H) | 60 - 99 mg/dL | [facility] - | | | GLUCOSE, | [...] AMES | [address] | [place], [place] | | | [place] POINT OF CARE | [address] | [address] | | | TESTS | | | [...] AMES | [address] | [place], [place] | | | JUST[place] OF [place] | [address] | [address] | | | TESTS | | | [...] | + + + + + | [facility] | [address] | [place] [address] | | | SERVICES, CORE | PARK [...] KWAKU | [address] | [place], [place] | | | JUSTINE [place]WN OF JAKY | [address] | [address] | | | TESTS | | | [...] injection 1 dose, | | | Starting [facility] 03/01/15 at 1215, | | | Until [facility] 03/01/15 at 1216 | | + +---+ | | | + +---+ + +-------+ +-------+---+---+ | FLUoxetine (PROZAC) capsule 40 | Given | 03/03/20 | 40 mg | | | | mg 40 mg, oral, DAILY, First | | 15 8:32 | | | | | dose on [facility] 03/01/15 at 0900, Until | | [...] PDT | | | | | Starting [facility] 03/01/15 at 1056, | | | | | | | Until [facility] 03/01/15 at 1436, | | | [...] mL/hr | mL/hr | | | Starting [facility] 03/01/15 at 0045, | | AM [...] | | | | | dose on Thu15 at 0900, Until | | AM PDT [...] | | | | | dose on [facility] 03/01/15 at 0900, Until | | [...] | | | 0017, Until 03/03/15 at 5, | | | | | | | insomnia | | | | | | + +-------+ +--------+---+---+ +---+---+ | | | +---+---+ documented in this encounter
--- OUTSIDE RECORDS SUMMARY | ~2020-04-17 | XMS | Encounter Summary ---
Demographics + + + | Address | [address] | | | [place] [address] | + + + | Home Phone [...] [place], [place] | | | | | [address] | | + + + + + | Ellie Vang | ECON | Unknown | | + + + + + Care Team Providers + +------+ + | Care Lube Technician Name | Role | Phone | [...] | | | | | | [place], [place] | | | | | | [address] | | | | | | [phone] | | | +--------+ + + + [...] Rd | | | | | | [place], [place] | | | | | | [address] | | | | | | [phone] | | | | | | | | +--------+---------+ + + + documented as of this encounter Visit Diagnoses Not on filedocumented in this encounter"
--- OUTSIDE RECORDS SUMMARY | ~2020-04-17 | XMS | Encounter Summary ---
Demographics + + + | Address | [address] | | | [place] [address] | + + + | Home Phone [...] [place], [place] | | | | | [address] | | + + + + + [...] Brian, | | | 2010 | | [place] [address] | [address] [facility] | | | | | [address] [facility] | [facility] | | | | | for Health and | [place], [place] | | | | | [facility] [address] | [address] | | | | | [place], [place] | [phone] | | | | | [address] | | | | | | [phone] | | | +--------+ + + + [...] Rd | | | | | | [place] | | | | | | [address] | | | | | | [phone] | | | | | | | | +--------+---------+ + + + documented as of this encounter Visit Diagnoses Not on filedocumented in this encounter"
--- OUTSIDE RECORDS SUMMARY | ~2020-04-17 | XMS | Encounter Summary ---
Demographics + + + | Address | [address] | | | [place] [address] | + + + | Home Phone [...] [place], [place] | | | | | [address] | | + + + + + [...] | | | | | | [place], [place] | | | | | | [address] | | | | | | [phone] | | | +--------+ + + + [...] | | 2019 | Visit | | [address] | | | | | | [address] | | | | | | [place], [place] | | | | | | [address] | | | | | | [phone] | | | | | | | | +--------+---------+ + + + documented as of this encounter Visit Diagnoses Not on filedocumented in this encounter"
--- OUTSIDE RECORDS SUMMARY | ~2020-04-17 | XMS | Encounter Summary ---
Demographics + + + | Address | [address] | | | [place] [address] | + + + | Home Phone [...] [place], [place] | | | | | [address] | | + + + + + | Ellie Vang | ECON | Unknown | | + + + + + Care Team Providers + +------+ + | Care Lens Mounter Name | Role | Phone | [...] Rd | | | | | | [place], [place] | | | | | | [address] | | | | | | [phone] | | | | | | | | +--------+---------+ + + + documented as of this encounter Visit Diagnoses Not on filedocumented in this encounter"
--- OUTSIDE RECORDS SUMMARY | ~2020-04-17 | XMS | Encounter Summary ---
Demographics + + + | Address | [address] | | | [place] [address] | + + + | Home Phone [...] [place], [place] | | | | | [address] | | + + + + + | Ellie Vang | ECON | Unknown | | + + + + + Care Team Providers + +------+ + | Care Dolphin Trainer Name | Role | Phone | [...] [facility] [address] | [address] | | | | | [facility] | [facility] | | | | | [facility] and | [place], [place] | | | | | [place] [address] | [address] | | | | | [place], [place] | [phone] | | | | | [address] | | | | | | [phone] | | | +--------+ + + + [...] Rd | | | | | | [place] | | | | | | [address] | | | | | | [phone] | | | | | | | | +--------+---------+ + + + documented as of this encounter Visit Diagnoses Not on filedocumented in this encounter"
--- OUTSIDE RECORDS SUMMARY | ~2020-04-17 | XMS | Encounter Summary ---
Demographics + + + | Address | [address] | | | [place] [address] | + + + | Home Phone [...] [place], [place] | | | | | [address] | | + + + + + | Ellie Vang | ECON | Unknown | | + + + + + Care Team Providers + +------+ + | Care Final Block Press Operator Name | Role | Phone [...] | | 2018 | | [facility] at [facility] | MD [address] | (Phentermine 37.5mg) | | | | [address] | [place], [place] | | | | | [facility] | [address] | | | | | and [place], | [phone] | | | | | [facility] | | | | | | [place], [place] | | | | | | [address] | | | | | | [phone] | | | +--------+ + + + [...] Ordering/Authorizing 11/25/2017 5:10 PM Cardiology [facility] Randell Franks MD Medication Detail Disp Refills PHENTERMINE 37.5 mg oral tablet 90 tablet 1 Sig: TAKE ONE TABLET BY MOUTH ONCE DAILY IN THE MORNING BEFORE BREAKFAST Class: Requires Phone In Order: [id number] elephone Encounter - Jason Bonds MA - 11/25/2017 3:08 PM PDTFormatting of this note might be diffe rent from the original. Refill Request for: Requested Prescriptions Pending Prescriptions Disp Refills PHENTERMINE 37.5 mg oral tablet [Pharmacy Med Name: PHENTERMINE 37.5MG TAB] 90 tablet 3 Sig: TAKE ONE TABLET BY MOUTH ONCE DAILY IN THE MORNING BEFORE BREAKFAST Patient Last Seen: Last Appointment in [facility] was on 11/20/17 at 9:35 am wit h Randell Franks MD. Follow Up Plan: Next Appointment in [facility] is on 06/04/18 at 10:35 am with Jessica Franks MD. Please review and sign if appropriate documented in this encounter Plan of Treatment +--------+---------+ + + + | Date | Type | Specialty | Care Team | Description | +--------+---------+ + + + | 06/08/ | Office | Plastic Surgery | Antoinette Hale, | | | 2019 | Visit | | [address] | | | | | | [address] | | | | | | [place], [place] | | | | | | [address] | | | | | | [phone] | | | | | | | | +--------+---------+ + + + documented as of this encounter Visit Diagnoses Not on filedocumented in this encounter"
--- OUTSIDE RECORDS SUMMARY | ~2020-04-17 | XMS | Encounter Summary ---
Demographics + + + | Address | [address] | | | [place] [address] | + + + | Home Phone [...] Team Providers + +------+ + | Care Inbound Call Center Agent Name | Role | Phone | + +------+ + PCP | Unavailable | + +------+ + Encounter Details +--------+ + + + + | Date | Type | Department | Care Team | Description | +--------+ + + + + | 11/04/ | Orders Only | [facility] | Conversion | | | 2016 | | NEPHROLOGY [place] | Transaction, | | | | | [address] | Provider Unknown | | | | | [address] [place], [place] | | | | | | [address] | (Fax) | | | | | [phone] | | | +--------+ + + + [...] | | | | | [place] [address] | | | | | | [phone] | | | | | | | [...]
--- OUTSIDE RECORDS SUMMARY | ~2020-04-17 | XMS | Encounter Summary ---
Demographics + + + | Address | [address] | | | [place] [address] | + + + | Home Phone [...] [place], [place] | | | | | [address] | | + + + + + | Ellie Vang | ECON | Unknown | | + + + + + Care Team Providers + +------+ + | Care Data Center Project Manager Name | Role | Phone [...] & | [address] | [address] [facility] | | | | | [address] | for Health | Hospital, | | | | | CONTRAST | and Healing, | 10th Floor | | | | | | [address] | [place], [place] | | | | | | [place], | [address] | | | | | | [place] | Phone: | | | | | | [address] | [phone] | | | | | | Phone: | Fax: | | | | | | [phone] | [phone] | | | | | | Fax: | | | | | | | [phone] | | +--------+--------+ + + + + [...] | | CT [facility] & | [address] | [address] [facility] | | | | | [address] [address] [facility] | for Health | Hospital, | | | | | CONTRAST | and Healing, | 10th Floor | | | | | | [address] | [place], [place] | | | | | | [place], | [address] | | | | | | [place] | Phone: | | | | | | [address] | [phone] | | | | | | Phone: | Fax: | | | | | | [phone] | [phone] | | | | | | Fax: | | | | | | | [phone] | | +--------+--------+ + + + + Encounter Details +--------+ + + + + | Date | Type | Department | Care Team | Description | +--------+ + + + + | 10/07/ | Hospital | Radiology/Imaging | | | | 2012 | Encounter | Lab at [facility] [address] [facility] | | | | | | [facility] and Healing, | | | | | | [address], 3rd | | | | | | Floor [facility] [place] | | | | | | [address] | | | | | | [phone] | | | +--------+ + + + [...] Rd | | | | | | [place], [place] | | | | | | [address] | | | | | | [phone] | | | | | | | [...] + + | JUSTINE PE[facility]A | [address] | [place] [address] | | | OF CARE TESTS | | | | + + + + + documented in this encounter Visit Diagnoses + + | Diagnosis | + + | Hernia Hernia of unspecified site of abdominal cavity without mention of obstruction | | or gangrene | + + documented in this encounter"
--- OUTSIDE RECORDS SUMMARY | ~2020-04-17 | XMS | Encounter Summary ---
Demographics + + + | Address | [address] | | | [place] [address] | + + + | Home Phone [...] [place], [place] | | | | | [address] | | + + + + + | Ellie Vang | ECON | Unknown | | + + + + + Care Team Providers + +------+ + | Care Orthotics Technician Name | Role | Phone | + +------+ + | Kenyatta Cardenas MD | PCP | | + +------+ + Encounter Details +--------+ + + + + | Date | Type | Department | Care Team | Description | +--------+ + + + + | 06/06/ | Telephone | Digestive Health | [place] | | | 2019 | | [place] [address] [address] | MD [address] | | | [address] [facility] | [address] | | | | | for Health and | [place], [place] | | | | | [facility] | [address] | | | | | [place], [place] | [phone] | | | | | [address] | | | | | | [phone] | | | +--------+ + + + [...] with a blood clot in right arm Oct and started on Lovenox inj 120mg/0.8 ml q 12 hr. Yesterday, she was diagnosed with 2 pulmonary emboli and started warfarin 10 mg daily. Her prescribing provider knows she is scheduled for surgery. She rates her abdominal pain " 10" out of 10 on pain scale. I wanted to make sure you are aware of her current situation. Please advise, October [facility] phone RN" Discussed with Dr. Woo, pt [...] | | 2019 | Visit | | [address] | | | | | | [address] | | | | | | [place], [place] | | | | | | [address] | | | | | | [phone] | | | | | | | | +--------+---------+ + + + documented as of this encounter Visit Diagnoses Not on filedocumented in this encounter
--- OUTSIDE RECORDS SUMMARY | ~2020-04-17 | XMS | Encounter Summary ---
Demographics + + + | Address | [address] | | | [place] [address] | + + + | Home Phone [...] [place], [place] | | | | | [address] | | + + + + + | Ellie Vang | ECON | Unknown | | + + + + + Care Team Providers + +------+ + | Care Senior Asp Net Developer Name | Role | Phone | [...] | | 2012 | | [facility] | [address] [facility] | ventral hernia; | | | | Rd [facility] | [facility] [address] | possible bowel | | | | Hospital Admitting | [place], [place] | resection; | | | | Desk Located on the | [address] | | | | | 9th floor | [phone] | | | | | [place], [place] | | | | | | [address] | | | +--------+---------+ + + + [...] yuriy tral hernia. She was transferred from [place] for surgical evaluation of possible incarcer ated [...] Cipro. POD 5 she was discharged ho w[place], tolerating a diabetic diet. Having bowel function. [...] yuriy tral hernia. She was transferred from [place] for surgical evaluation of possible incarcer ated [...] Cipro. POD 5 she was discharged [place], tolerating a diabetic diet. Having bowel function. [...] is very important that you walk at [facility] [employer] [facility] three times a day. These can [...] keeping you from eating and drinking, Call [phone]. It is important to stay hydrated! If [...] taking narcotic that contain Tylenol (acetaminophen) Example: [place], Lortab, Vicodin, hydrocodone/APAP, Percocet, Tylenol #3 PAIN MEDICATIONS are ONLY REFILLED during CLINIC APPOINTMENTS. Please call [phone] to schedule an appointment. Your Follow-Up Plan Follow up with ROBIN MEJIA in 2 weeks. Contact information: [address] [facility] [address] Vitals on discharge: Ht 154.9 cm (5' [...] might be different f rom the original. [facility] DEPARTMENT [...] ASSESSMENT, MEDICAL DECISION MAKING AND PLAN: Dylan Romeor is a 37 y.o. female who is o n HD# 6, POD #6 S/P incarcerated ventral hernia repair with primary repair, panniculectomy. Stable for discharge Ventral hernia - continue with drains, will remove in clinic - stables to be removed in clinic - [place] [phone] pager number [facility] [phone] [facility] [phone] Aminta Goodwin Md - 11/11/2012 7:40 AM PDT [facility] DEPARTMENT OF SURGERY EMERGENCY GENERAL SURGERY Division of Trauma and Critical Care Attending Physician: Andie Chun MD Progress Note Note Date: 11/11/2012 Admission Date: 11/06/2012 DYLAN ROMERO, [id number] Hospital Day #5 INTERVAL EVENTS none acute [...] mg, Rectal, DAILY PRN, Aminta Wilson MD vpecvzgvxz-xszbdorxiqnsu-lzbedxtp (aka FIORICET) 50-325-40 mg 1 Tab, 1 [...] Jayne Ponce MD, 1 mg at 11/10/12801 qhamkvqogq-mivyoyetpkalj-pctawhzw (aka FIORICET) 50-325-40 mg 1 Tab, 1 [...] in preservative free NaCl 0.9% 50 mL SOLUTION COORDINATOR infusion, , Intravenous, KIESHA NUOUS, Aracely Ferronato, [...] diet -add bowel regimen Acute pain -HM SOLUTION COORDINATOR, tylenol -convert to oral pain medication once [...] Fluids: LR 125ml/hr Feeding: NPO Analgesia: Dilaudid SOLUTION COORDINATOR Sedation: not indicated Thromboprophylaxis: enoxaparin Head of [...] Jayne Ponce MD, 650 mg at 11/09/12 6547 ALPRAZolam (aka XANAX) tablet 1 mg, 1 mg, Oral, TID, Jayne Ponce MD, 1 mg at 11/09/12 0855 zchilinqdf-uxlwwzcvuvizg-ibewdxnz (aka FIORICET) 50-325-40 mg 1 Tab, 1 [...] in preservative free NaCl 0.9% 50 mL SOLUTION COORDINATOR infusion, , Intravenous, KIESHA NUOUS, Aracely Flores [...] drainage <30ml for 24hrs Acute pain -HM SOLUTION COORDINATOR, tylenol Diabetes: -insulin gtt not started due [...] Fluids: LR 125ml/hr Feeding: NPO Analgesia: Dilaudid SOLUTION COORDINATOR Sedation: not indicated Thromboprophylaxis: enoxaparin Head of bed: > 30 Ulcer prophylaxis: pepcid Glycemic control: adequate Activity/PT/OT: Ongoing Yogurt: ABX on Probiotics:yes AMINTA WILSON MD General Surgery, R1 Judenaeem Kaleb S, N P - 11/08/2012 8:49 AM PDT [facility] DEPARTMENT OF SURGERY EMERGENCY GENERAL SURGERY Division of Trauma and Critical Care Attending Physician: Andie Chun MD Progress Note Note Date: 11/08/2012 Admission Date: 11/06/2012 DYLAN ROMERO, [id number] Hospital Day #2 INTERVAL EVENTS NO SUBJECTIVE Pain well controlled; has headache attributed to dilaudid SOLUTION COORDINATOR Tylenol did not help. Flatus: YES Tolerating [...] trials today. -YAO kilgore Acute pain -HM SOLUTION COORDINATOR, tylenol Diabetes: -insulin gtt not started due [...] Fluids: LR 125ml/hr Feeding: NPO Analgesia: Dilaudid SOLUTION COORDINATOR Sedation: not indicated Thromboprophylaxis: enoxaparin Head of bed: > 30 Ulcer prophylaxis: pepcid Glycemic control: adequate Activity/PT/OT: Ongoing Yogurt: ABX on Probiotics: No KALEB WING NP [facility] [place] [address] Kelvin Lobato MD - 11/07/2012 9:51 PM [...] 7.33* PCO2 49* PO2 113* HCO3 25 WKNWE9ZBD 26 L1DURGPZ 98.3* Y8YQFBCHZ -- FIO2 60 ABGEXCESS -0.9 Assessment, Medical Decision Making and Plan 1. Incarcerated hernia, now s/p repair and panniculectomy -Binder, pain control, minimize nausea and coughing PRN. -NG clamping trials today. 2. Acute pain -HM SOLUTION COORDINATOR, tylenol 3. Diabetes: -insulin gtt 4. Morbid [...] Dione Nickerson MD R-2, General Surgery Pager: [phone] [facility] [place] Department of Surgery Trauma ICU Team Pager (24hrs/day): [phone] I was present with the resident during the history and exam. I discussed the case with the resident and agree with the findings and plan as documented in the resident s note. KELVIN SPENCE MD [facility] [address] [place] [address] [phone] uddbarb, Onur Marcelino MD - 11/07/2012 2:37 [...] in preservative free NaCl 0.9% 50 mL SOLUTION COORDINATOR infusion Intravenous CON TINUOUS Aracely Ferronato, DO [...] Onur Allen MD 150 mg at 11/06/12 7077 Assessment & Plan: Dylan Romero is a 37 y.o. Morbidly obese female who presented with an incarcerated vent ral hernia who is now POD#1 s/p primary repair. 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 manager risk and prn tylenol, continue prozac and zyprexa [...] F: probable remain NPO today A: dilaudid manager risk, prn tylenol S: prn benzos as she is at home T: will start prophylactic lovenox today H: HOB >30 degrees U: pepcid G: insulin gtt ONUR ALLEN MD, PGY3 [facility] [id number] [address] Onelia Shrestha MD - 11/06/2012 8:41 AM PDT [facility] DEPARTMENT OF SURGERY Division of Trauma and Critical Care Emergency General Surgery / Acute Care Surgery Attending Physician: Andie Chun MD Note Date: 11/06/2012 Admission Date: 11/06/2012 DYALN ROMERO, [id number] Hospital Day #0 OVERNIGHT EVENTS: anxious SUBJECTIVE: [...] wwp LABS: reviewed and are available in [facility] (if new data) IMAGING: VASCULAR: [...] and needs fluid resuscitation. ANDIE CHUN MD [facility] [address] [place] [address] emarcus Christopher MD - 0 11/05/2012 10:24 [...] She presents today as a transfer from [place] with concern for possible incarcerated marguerite ia. [...] She presents today as a transfer from [place] with concern for possible incarcerated marguerite ia. [...] inferior abdo stephany ventral hernia transferred to [facility] over concern for incarcerated hernia. The hernia w as non reducible, but was limited by pain on exam. Her hernia does appear incarcerated. 1. Admit to Surgery 2. NPO, NGT tube 3. MIVF with LR at 75ml/hr 4. Cbc, cmp, inr 5. Restart home medications 6. Incarcerated hernia -CT scan vs. OR today Demarcus Christopher MD, PGY1 [facility] [address] [place] [address] documented in this enc ounter Procedure Notes Danny Liu MD - 11/07/2012 9:07 AM PDTAssociated Order(s): REPAIR, VENTRAL HERNIA, I NCARCERATED, INITIALProcedure(s): REPAIR, VENTRAL HERNIA, INCARCERATED, INITIALPre-Procedure Diagnose(s): Incarcerated ventral herniaPost-Procedure Diagnose(s): Incarcerated ventral he rniaOperative Report Identifying Data: Dylan Romero [id number] Author: Danny Liu MD Date: 11/06/2012 Attending Surgeon and Service: Attending: Hernandez Chun MD Service: Emergency General Surgery Date of Procedure: 11/06/2012 Preoperative Diagnosis: Incarcerated Ventral Hernia Postoperative Diagnosis: Same Procedure Performed: 1) Exploratory laparotomy 2) Excision of excess skin and chronic wound infection 3) Primary ventral hernia repair 4) 19Fr Round Vanessa Drain 5) Staple skin closure Primary Surgeon: Hernandez Chun MD [facility] Surgeons: MD Danny Kovacs MD Type of [...] for the entire procedure. DANNY LIU MD [id number] [place] [address] Danny Fowler MD - 11/06/2012 2:07 PM [...] excision of excess skin and chronic wound, [facility] ventral hernia repair, 19Fr Round Vanessa [...] suture and skin contreras. DANNY LIU MD [facility] [id number] [place] [address] documented in this encounter Consult Notes Raisa Landaverde MD - 11/06/2012 3:48 PM PDTI was present and rounded with the ASTRONOMY DEPARTMENT CHAIR today. I interviewed and examined the patient. I reviewed the history, as documented today. I agr ee with the ASTRONOMY DEPARTMENT CHAIR's assessment and plan. No evidence of bleeding. Will follow. Will wean to pre ssure support as tolerated. May need bronchoscopy. Critcal care time: 35 minutes RAISA LANDAVERDE MD [facility] [address] [place] [address] guyen Canseco PA-C - 11/06/2012 3:48 PM [...] by the attending physician. NGUYEN CANSECO PA-C [facility] [id number] [place] [address] documented in this en counter Miscellaneous Notes [...] Patient Stability:Moderately Stable lan of Kevon Rendon Alfaro joanne - 11/12/2012 2:06 PM PDTProblem: Pain, [...] be driving pt to her home in [place]. No needs from at this time. Luz [...] and mo bility progress. 5. Assess skin W6thizv and PRN. Educate on prevention of skin breakdown. Elevate heels and other pressure points. Ask MD to order nystatin powder for application underneath pannus. 6. Assess n/v G0gxrxq and PRN. Treat with PRN and/or scheduled [...] and mo bility progress. 5. Assess skin P3pwkkq and PRN. Educate on prevention of skin breakdown. Elevate heels and other pressure points. Ask MD to order nystatin powder for application underneath pannus. 6. Assess n/v Y4skkhu and PRN. Treat with PRN and/or scheduled anti-emetics. Educate on alt ernative techniques for nausea management (i.e. Side lying, distraction, deep breathing). andoff - Claudia Braga RN - 11/12/2012 6:26 AM PDTPrimary focus of stay: 37 female admit from [place] w/ pos sible incarcerated hernia, N/V, abdominal [...] 5/10 this shift and transitioni ng off SOLUTION COORDINATOR 2. Patient will demonstrate adequate oxygenation and perfusion d/b spo2>90% on RA this kristin ft. Interventions: 1. Patient will be encouraged to ask for oral pain med and use SOLUTION COORDINATOR sparingly. 2. Encourage patient to roll on [...] much pain medication patient is using on SOLUTION COORDINATOR 6. Administer migraine medication PRN for headache 7. Administer 1 L O2 when patient is sleeping 8. Evaluate patient's fluid balance and discuss with MD to DC her fluid since she is now t aking decent amount of liquid intake. Interventions that worked/didn't work:Patioent seems to be very comfortable but when woken up or when moving, she co pain 8/10. SOLUTION COORDINATOR was not used since 99. MD did [...] -drsg changed 11/08 , LR @ 125, SOLUTION COORDINATOR 0.1 q 8. Oral pain med given q 3 hour s 10 to 15 mg. Please try to wean off SOLUTION COORDINATOR Diet/GI:, CL, passing gas, BM meds started(11/10) CBGs: q6 : voids in BR, UTI Mobility: SBA, hats in BR. 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 Patient will demonstrate adequate oxygenation and perfusion d/b spo2>90% on RA this kristin ft. Interventions: 1. Patient will be encouraged to ask for oral pain med and use SOLUTION COORDINATOR sparingly. 2. Encourage patient to roll on [...] much pain medication patient is using on SOLUTION COORDINATOR 6. Administer migraine medication PRN for headache [...] -drsg changed 11/08 , LR @ 125, SOLUTION COORDINATOR 0.2 q 8. Oral pain med given at 5pm Diet/GI:, CL, passing gas, BM meds started(11/10) CBGs: q6 : voids in BR, UTI Mobility: SBA, hats in BR. 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 Interventions that worked/didn't work:in process Of switching manager risk to oral pain medication, VSS, no acute abnormal change in wound. VSS this shift My recommendations forward:as above Patient Stability:Moderately Unstable lan giuilana Lund - Saqib Barry - 0 11/10/2012 10:34 AM PDTProblem: Case Management Goals Goal: Discharge Needs Met Outcome: Goal not met Await BM prior to DC. Per report, pt is passing gas; hopeful for DC in 1-2 days. Barry Cerrato RN, BSN [employer] [place] [address] /[email or web address] eronique Castro - 11/10/2012 9:00 AM PDTProblem: General Plan of Care (Adult) Intervention: NPEOC Acute Goals:pain under control Prevent infection Interventions:assess the effectiveness of SOLUTION COORDINATOR at least Q 4hrs, encourage IS and [...] will be encouraged/instructed on proper use of SOLUTION COORDINATOR and to inform RN if pain not [...] much pain medication patient is using on SOLUTION COORDINATOR 6. Administer migraine medication PRN for headache Interventions that worked/didn't work:Patient was drowsy after her night medication, barely used her SOLUTION COORDINATOR. Turned rate down d/t desat. May turn [...] -drsg changed 11/08 , LR @ 125, SOLUTION COORDINATOR 0.3 q 8. SOLUTION COORDINATOR turned down to 0.1 q 8 minutes at 0400 Diet/GI: NPO exc meds, ice chips ok, passing gas CBGs: q6 : voids in BR, UTI Mobility: SBA, hats in BR. 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 I believe her Bipolar med and Trazadone made her drowsy. Awakable but went back to sleep ri ght away. Refused toileting when offered twice since 330. Absent of pain. pain well contro lled with SOLUTION COORDINATOR and prn meds Toradol, for headache, Floricet [...] will be encouraged/instructed on proper use of SOLUTION COORDINATOR and to inform RN if pain not [...] much pain medication patient is using on SOLUTION COORDINATOR 6. Administer migraine medication PRN for headache [...] 7/10 in abdomen, RN aware. addressed with SOLUTION COORDINATOR. Objective: Education: patient able to recall all [...] chair T ID Clau Quintero DPT Pager [phone] valuation - Brendon Mcgowan RN - 11/09/2012 1:05 PM PDTProblem: Pain Chronic (Adult, Obstetrics) Goal: Identify Signs and Symptoms and Related Risk Factors Goals: 1. Patient's pain will adequately controlled at or below a 5/10 this shift. 2. Patient will demonstrate adequate oxygenation and perfusion d/b spo2>90% on RA this kristin ft. Interventions: 1. Patient will be encouraged/instructed on proper use of SOLUTION COORDINATOR and to inform RN if pain not adequately controlled. SOLUTION COORDINATOR dose will be titrated for adequate pain [...] -drsg changed 11/08 , LR @ 125, SOLUTION COORDINATOR 0.3 q 8 Diet/GI: NPO exc meds, [...] Last pain assessment/reassessment: pain well controlled with SOLUTION COORDINATOR and prn meds Toradol, for headache, Nubain [...] will be encouraged/instructed on proper use of SOLUTION COORDINATOR and to inform RN if pain not adequately controlled. SOLUTION COORDINATOR dose will be titrated for adequate pain [...] Following Yuli Childs RD, CNSC, LD Pager# [phone] Comments: Dylan Romero is a 37 y.o. [...] 1440-1875kcal/day (18-23kcal/kg AdjBW), 95-120g pro/day (2-2.5g/kg IBW)Kaykay buenrotsro signed by Yuli Childs RD, CSUPSTATE [facility], LD at 11/09/2012 11:05 AM PDTEvaluation [...] mbulation and mobility progress. 5. Assess skin D0nxtpo and PRN. Educate on prevention of skin breakdown. Elevate heels and other pressure points. Ask MD to order nystatin powder for application underneath pannus. 6. Assess n/v B0oqbxr and PRN. Treat with PRN and/or scheduled anti-emetics. Educate on alt ernative techniques for nausea management Interventions that worked/didn't work:Pt continues to refuse to turn in bed, pain controlle d with SOLUTION COORDINATOR Dilaudid,denied nausea My recommendations forward:Encourage ambulation, good [...] -drsg changed today , LR @ 125, SOLUTION COORDINATOR 0.2 q 8 Diet/GI: NPO exc meds, ice chips ok, passing gas CBGs: q6 : voids Mobility: SBA, up in chair once this shift Wounds/Drains: transverse abdominal incision, DIAMOND drain x 1, skin breakdown under pannus,was h, clean dry apply nystatin and cream,pillow case x1 Critical labs: Critical meds: UA sent Orders to follow up on: Last pain assessment/reassessment: pain well controlled with SOLUTION COORDINATOR and prn meds Toradol, for headache, Nubain [...] mbulation and mobility progress. 5. Assess skin R3wyzgp and PRN. Educate on prevention of skin breakdown. Elevate heels and other pressure points. Ask MD to order nystatin powder for application underneath pannus. 6. Assess n/v V1heyap and PRN. Treat with PRN and/or scheduled [...] at home for her lungs and can pull through hooker 1500mls on incentive spirometer. No treatment Nee ded from RT standpoint. valuation - Geneva Villalobos RN - 11/08/2012 11:58 AM PDTNo notes of Plan of Care type on file. Interventions that worked/didn't work:Goals:to get OOB, to have a sponge bath, pain managem ent, to advance diet, change CVC Interventions:assist with ambulation, 2 person, up to the chair, SOLUTION COORDINATOR, iv toradol, tylenol a s needed for headache, ice chips, ASTRONOMY DEPARTMENT CHAIR at the bedside , reposition, help/assist student [...] -drsg changed today , LR @ 125, SOLUTION COORDINATOR 0.2 q 8 Diet/GI: NPO exc meds, [...] Last pain assessment/reassessment: pain well controlled with SOLUTION COORDINATOR and prn meds Toradol, for headache, Nubain [...] tive device. Patient used motorized scooter in [facility] only. Patient / Family Goal: To return home Communication: Mongolian Barriers: none Pain: 7/10 in abdomen at rest; pressed SOLUTION COORDINATOR appropriately Vital signs: stable per observation on [...] 5) Staple skin closure Pre-admission living situation: [place], [place] Pre-admission functional status: Independent Family/support system: Jazmyn Darden Insurance/funding in place: LAB COORDINATOR [place] - Plus Anticipated discharge needs: Likely DC home, following for needs. Barry Cerrato RN, BSN [facility] and [address] [address] [email or web address] [phone]/pg [phone] andoff - Ramon Austin RN - 11/08/2012 2:53 AM PDTRN EGS Handoff Report Primary focus of stay: incarcerated bowel and ileus, hernia repair 11/06 PmHx: HTN, DM, bipolar, depression, anxiety, migraines Pertinent physical findings: Vitals: vitals stable, but tachy at times Respiratory status: 4L NC, diminished in bases Isolation Precautions: none Access/fluids: RIJ and L PIV, LR @ 125, SOLUTION COORDINATOR 0.2 q 8 Diet/GI: NPO exc meds, [...] Last pain assessment/reassessment: pain well controlled with SOLUTION COORDINATOR/ Pt does think Dilaudid is giving her [...] mbulation and mobility progress. 5. Assess skin U8zkbtv and PRN. Educate on prevention of skin breakdown. Elevate heels and other pressure points. Ask MD to order nystatin powder for application underneath pannus. 6. Assess n/v H6flkub and PRN. Treat with PRN and/or scheduled [...] RIJ and L PIV, LR @ 125, SOLUTION COORDINATOR 0.2 q 8 Diet/GI: NPO exc meds, NGT d/c today CBGs: q6 : FC Mobility: SBA, ambulated today on ICU Wounds/Drains: transverse abdominal incision, DIAMOND drain x 1, skin breakdown under pannus Critical labs: Critical meds: insulin drip?? Orders to follow up on: clarify insulin drip order Last pain assessment/reassessment: pain well controlled with SOLUTION COORDINATOR Psych/social issues: can be anxious at times Last visit (i.e. Falls/Activity/Comfort/Environment/Toileting/Skin): resting comfortably Anticipated or pending procedures: possible future [place] Discharge plan: TBD lan of Care - Zari Goodrich, [facility] - 11/07/2012 11:10 AM PDT Problem: RT [...] mbulation and mobility progress. 5. Assess skin M3llzcd and PRN. Educate on prevention of skin breakdown. Elevate heels and other pressure points. Ask MD to order nystatin powder for application underneath pannus. 6. Assess n/v M0qydsi and PRN. Treat with PRN and/or scheduled [...] mbulation and mobility progress. 5. Assess skin H2ysryn and PRN. Educate on prevention of skin breakdown. Elevate heels and other pressure points. Ask MD to order nystatin powder for application underneath pannus. 6. Assess n/v T2ozkjr and PRN. Treat with PRN and/or scheduled anti-emetics. Educate on alt ernative techniques for nausea management (i.e. Side lying, distraction, deep breathing). Pl amanda NGT if ordered. andoff - Maria Luz, Claudia mujica RN - 11/06/2012 5:42 AM PDTRN EGS Handoff Report Primary focus of stay: 37 female admit from [place] w/ possible incarcerated hernia, N/V, abdominal pain [...] in am, possible surgery? [facility] plan[facility] 11/06/2012 12:05 AM PDTDr Ny adv having trouble getting transport. Unable air. Th ey are trying to get a ground unit together. Unk T ETA [facility] - 11/05/2012 10:54 PM PDTPer PPO pt can go to 10A rm 12 outh [facility] BerriensonRyley - 11/05/2012 10:06 PM PDTConnected. 37 yof. Had appendectomy previ ously, developed hernia on L side of incision. Appears to be incarcerated possibly strangula emely. Pt 404 lbs. Unable to get CT scanned. Pt vomiting, started at [address] Chun accepts pt with a bariatric bed, req 14A. Paged grp 18. [facility] - 11/05/2012 10:[address] Ramires. Paged EGS Dr Chun. documented in this encounter Plan of Treatment +--------+---------+ + + + | Date | Type | Specialty | Care Team | Description | +--------+---------+ + + + | 06/08/ | Office | Plastic Surgery | Gasper Halemirza, | | | 2020 | Visit | | [address] | | | | | | [address] | | | | | | [place], [place] | | | | | | [address] | | | | | | [phone] | | | | | | | [...] | + +--------+ + + + | HEMOGLOBIN-GIANOX, POC | Routin | 11/06/2012 | Hernia [...] Mae | | | | | | [place] | | | | + + + [...] [facility] | [address] | [place], [place] | | | [facility] | [address] | [address] | | | TESTS | | | [...] - [facility] | [address] | [place], [place] | | | [place] [facility] | [address] | [address] | | | TESTS | | | [...] [facility] | [address] | [place] [address] | | | SERVICES, CORE | PARK [...] [facility] [place] | [address] | [place] [address] | | | SERVICES, LYDIA | CLARENCE [...] [facility] | [address] | [place] [address] | | | SERVICES, LYDIA | CLARENCE [...] 60 - 99 mg/dL | [facility] - | | | GLUCOSE, [...] [facility] | [address] | [place], [place] | | | [facility] [place] | [facility] | [address] | | | TESTS | | | [...] [facility] | [address] | [place], [place] | | | [facility] [place] | [address] | [address] | | | TESTS | | | [...] [facility] | [address] | [place], [place] | | | [facility] [place] | [facility] | [address] | | | TESTS | | | [...] 60 - 99 mg/dL | [facility] - | | | GLUCOSE, [...] [facility] | [address] | [place], [place] | | | [facility] CARE | [address] | [address] | | | TESTS | | | [...] [facility] | [address] | [place] | | | [facility] [place] | [facility] | [address] | | | TESTS | | | [...] [facility] [place] | [address] | [place] [address] | | | SERVICES, CORE | CLARENCE [...] equation recommended by the | [facility] | | National Kidney Disease [...] [facility] | [address] | [place] [address] | | | SERVICES, CORE | PARK [...] + | [facility] | [address] | [place] [address] | | | SERVICES, CORE | CLARENCE [...] [facility] | [address] | [place], [place] | | | [facility] CARE | [address] | [address] | | | TESTS | | | [...] [facility] | [address] | [place], [place] | | | [facility] | [facility] | [address] | | | TESTS | | | | + + + + + CAPILLARY BLOOD GLUCOSE (NO CHG), POC (11/10/2012 12:39 PM PDT) + +-------+ + + + | Component | Value | Ref Range | Performed | Pathologist | | | | | At | Signature | + +-------+ + + + | BLOOD | 86 | 60 - 99 mg/dL | [facility] - | | | GLUCOSE, [...] [facility] | [address] | [place], [place] | | | [facility] | [facility] | [address] | | | TESTS | | | [...] [facility] | [address] | [place], [place] | | | [facility] [place] | [address] | [address] | | | TESTS | | | [...] - [facility] | [address] | [place], [place] | | | [place] [facility] | [facility] | [address] | | | TESTS | | | [...] [facility] | [address] | [place] [address] | | | SERVICES, CORE | PARK [...] [facility] [place] | [address] | [place] [address] | | | SERVICES, CORE | CLARENCE [...] [facility] | [address] | [place] [address] | | | SERVICES, CORE | PARK [...] [facility] | [address] | [place], [place] | | | [facility] | [address] | [address] | | | TESTS | | | [...] [facility] | [address] | [place], [place] | | | [facility] [facility] | [address] | [address] | | | TESTS | | | [...] [facility] | [address] | [place] | | | [facility]ARE | [address] | [address] | | | TESTS | | | [...] | + + + + + | [facility] | [address] | [place] [address] | | | [place] | | | [...] [facility] | [address] | [place] [address] | | | SERVICES, CORE | CLARENCE [...] [facility] [place] | [address] | [place] [address] | | | SERVICES, CORE [...] [facility] | [address] | [place], [place] | | | [facility] | [address] | [address] | | | TESTS | | | [...] [facility] | [address] | [place] [address] | | | SERVICES, CORE | PARK [...] [facility] | [address] | [place] [address] | | | SERVICES, CORE | PARK [...] 2.5 mg/dL | [facility] | | | [facility] | | | [...] [facility] [place] | [address] | [place] [address] | | | SERVICES, CORE | CLARENCE [...] [facility] | [address] | [place] | | | [facility] [place] | [address] | [address] | | | TESTS | | | [...] [facility] | [address] | [place] | | | [facility]ARE | [address] | [address] | | | TESTS | | | [...] [facility] | [address] | [place] | | | [facility] [place] | [address] | [address] | | | TESTS | | | [...] [facility] | [address] | [place] [address] | | | SERVICES, CORE | PARK [...] + | [facility] | [address] | [place] [address] | | | LYDIA RANGEL | CLARENCE [...] [facility] | [address] | [place] [address] | | | SERVICES, CORE | CLARENCE [...] [facility] | [address] | [place] | | | [facility] [place] | [address] | [address] | | | TESTS | | | [...] [facility] | [address] | [place] | | | [facility]ARE | [address] | [address] | | | TESTS | | | [...] [facility] | [address] | [place] | | | [place] | [facility] | [address] | | | TESTS | | | [...] [facility] | [address] | [place] [address] | | | SERVICES, CORE | PARK [...] + | [facility] | [address] | [place] [address] | | | SERVICES, CORE | CLARENCE [...] equation recommended by the | [facility] | | National Kidney Disease Education Program. Estimated GFR | LABORATORY | | Interpretive Information: <60 mL/min/1.73 sq m | [facility], CORE | | Chronic Kidney Disease <15 [...] [facility] | [address] | [place] [address] | | | [facility], [facility] | [address] | | | + [...] + +---------+ + + | [facility] DEPARTMENT OF | | | [...] [facility] | [address] | [place] [address] | | | SERVICES, CORE | PARK [...] + | [facility] | [address] | [place] [address] | | | LYDIA RANGEL | CLARENCE [...] [facility] | [address] | [place] [address] | | | SERVICES, CORE | PARK [...] | [facility] | [address] | [place], [place] | | | [facility] | [address] | [address] | | | TESTS | | | [...] [facility] | [address] | [place], [place] | | | [facility] | [address] | [address] | | | TESTS | | | [...] [facility] | [address] | [place] | | | [facility] [place] | [address] | [address] | | | TESTS | | | [...] [facility] | [address] | [place] | | | [facility] | [address] | [address] | | | TESTS | | | [...] [facility] | [address] | [place] | | | [facility] | [address] | [address] | | | TESTS | | | [...] [facility] | [address] | [place] | | | [facility] | [address] | [address] | | | TESTS | | | [...] [facility] | [address] | [place] | | | [facility] | [address] | [address] | | | TESTS | | | [...] - [facility] | [address] | [place], [place] | | | [facility] | [facility] | [address] | | | TESTS | | | | + + + + + HEMOGLOBIN (ART)VALERIE SOR (11/06/2012 11:08 AM PDT) + +---------+ [...] [facility] | [address] | [place], [place] | | | [facility] | [address] | [address] | | | TESTS | | | [...] mmol/L | [facility] | | | [facility] | | | [facility] | | | [...] [facility] | [address] | [place], [place] | | | [facility] | [address] | [address] | | | TESTS | | | [...] [facility] | [address] | [place], [place] | | | [place] [facility] CARE | [address] | [address] | | | TESTS | | | [...] [facility] | [address] | [place] [address] | | | SERVICES, | [address] [...] - [facility] | [address] | [place] | | | [facility] | [address] | [address] | | | TESTS | | | [...] [facility] | [address] | [place] [address] | | | SERVICES, | [address] [...] [facility] | [address] | [place] [address] | | | SERVICES, | [address] [...] + | [facility] | [address] | [place] [address] | | | SERVICES, CORE | PARK [...] | + + + + + | [facility] | [address] | [place] [address] | | | SERVICES, CORE | PARK [...] [facility] | [address] | [place] [address] | | | LYDIA RANGEL | CLARENCE [...] [facility] | [address] | [place] [address] | | | LYDIA RANGEL | CLARENCE [...] [facility] | [address] | [place] [address] | | | SERVICES, CORE | CLARENCE [...] + + + | Please click | [facility] DEPT OF | | on view image for the detailed interpretation from [facility] results. | CARDIOLOGY | + + + + + + + + | Performing | Address | City/State/Zipcode | Phone Number | | Organization | | | | + + + + + | [facility] | [address] | [place], [place] | | | CARDIOLOGY | [address] | [address] | | + + + + + [...] + | [facility] | [address] | [place] [address] | | | SERVICES, CORE | PARK [...] [facility] | [address] | [place] [address] | | | SERVICES, LYDIA | [address] | | | + + + + + documented in this encounter Visit Diagnoses + + | Diagnosis | + + | Incarcerated ventral hernia Ventral hernia, unspecified, with obstruction | + + documented in this encounter
--- OUTSIDE RECORDS SUMMARY | ~2020-04-17 | XMS | Encounter Summary ---
Demographics + + + | Address | [address] | | | [place] [address] | + + + | Home Phone [...] [place], [place] | | | | | [address] | | + + + + + | Ellie Vang | ECON | Unknown | | + + + + + Care Team Providers + +------+ + | Care Education And Outreach Coordinator Name | Role | Phone | + +------+ + | Fadi Goodrich DO | PCP | | + +------+ + Encounter Details +--------+ + + + + | Date | Type | Department | Care Team | Description | +--------+ + + + + | 03/04/ | Telephone | [facility] | Ion Pandey, | | | 2018 | | Center at [facility] [address] | MD [address] | | | | | [address] | [place], [place] | | | | | [facility] and | [address] | | | | | Healing, [facility] [address] | | | | | | [place], [place] | | | | | | [address] | | | | | | | [...] [address] | | | | | | [place], [place] | | | | | | [address] | | | | | | [phone] | | | | | | | | +--------+---------+ + + + documented as of this encounter Visit Diagnoses Not on filedocumented in this encounter
--- OUTSIDE RECORDS SUMMARY | ~2020-04-17 | XMS | Encounter Summary ---
Demographics + + + | Address | [address] | | | [place] [address] | + + + | Home Phone [...] [place], [place] | | | | | [address] | | + + + + + | Ellie Vang | ECON | Unknown | | + + + + + Care Team Providers + +------+ + | Care Cable Maker Name | Role | Phone | [...] | | [facility] | [address] | | | | | Hospital Admitting | [place], [place] | | | | | Desk Located on the | [address] | | | | | 9th floor | [phone] | | | | | [place], [place] | | | | | | [address] | | | +--------+---------+ + + + [...] the gallo. She was transitioned off her PRESENTATION SPECIALIST on POD1. She di d have [...] She will follow up at the [facility] with Dr. Woo in 2- [...] by mouth once daily at bedtime. CALCIUM [id number]-[id number]-GENIS ORAL Take 2 tablets by mouth two [...] daily. ASK your doctor about these medications CLINICAL PATHOLOGIST THYROID 30 mg Tab tab Generic drug: [...] the prescribed narcotic-opioid (e.g. oxycodone, hydrocodone, Vicodin, [place], Percocet, Dilaudid) as needed. However, Vicodin/[place] and Percocet contain acetam inophen in the [...] Narcotic-opioid pain medications (e.g. oxycodone, hydrocodone, Vicodin, [place], Percocet, Di laudid) can be constipating, therefore you should take a stool softener on the same day as s tarting your narcotic pain medicine. Options include: Milk of Magnesia: 2 Tablespoons Twice daily Colace (=Docusate): 1 pill Twice daily Miralax: 1 Tablespoon (17 grams) daily (check bottle for mixing instructions) While these are some recommendations, any vcym-cin-qsniwnx stool softener should work, and generics are [...] and plan of care. JONES WOO MD [facility] [address] [place] [address] documented in this encounter Discharge Instructions Discharge [...] hours by calling the surgery office at [phone]. After hours, weekends and holidays, you may call the hospital scrap hoist operator at [phone] and have the conservation or heritage architect Green Team for general surgery paged. Discharge [...] the gallo. She was transitioned off her PRESENTATION SPECIALIST on POD1. She did have dif [...] dition. She will follow up at the [facility] with Dr. Woo in weeks. She will also follow up in her anticoagulation clinic in the [facility] several days for warfarin m anagement. [...] the prescribed narcotic-opioid (e.g. oxycodone, hydrocodone, Vicodin, [place], Percocet, Dilaudid) as needed. However, Vicodin/[place] and Percocet contain acetam inophen in the [...] Narcotic-opioid pain medications (e.g. oxycodone, hydrocodone, Vicodin, [place], Percocet, Di laudid) can be constipating, therefore you should take a stool softener on the same day as s tarting your narcotic pain medicine. Options include: Milk of Magnesia: 2 Tablespoons Twice daily Colace (=Docusate): 1 pill Twice daily Miralax: 1 Tablespoon (17 grams) daily (check bottle for mixing instructions) While these are some recommendations, any wpfu-fxy-fugpzes stool softener should work, and generics are fine to use. Increase your fluids, especially your intake of water Increase your activity. Walk frequently. ANTICOAGULATION: We recommend you make an appointment to be seen in your local anticoagulation clinic on Thu08/25/19 to recheck your INR and for ongoing management of your warfarin. FOLLOW-UP: Please call Dr. Woo's office ([phone]) to schedule a follow-up appointment for 2-3 [...] | | 0 | | | | CRB&VCH-V2-RPI05-GEN | mouth two times | | | [...] + + +---------+ + + | thyroid (CLINICAL PATHOLOGIST | Take 30 mg by mouth | [...] assist PRN. Anticipate discharge michelle Chandler MD [place] [facility], PGY-1 [place] Photographic Printer Pager: [phone] signed by Jones Woo MD at 08/22/2019 [...] dc in 2-3 days Gadiel Chandler MD [place] [facility], PGY-1 [place] Photographic Printer Pager: [phone] Associated attestation - Jones Woo MD - 08/21/2019 9:57 AM PSTI performed a hist ory and physical examination of the patient and discussed her management with the resident. I reviewed the resident s note and agree with the documented findings and plan of care. JONES WOO MD [facility] [address] [place] [address] Valencia Zamora MD - 08/20/2019 8:42 AM [...] well. - kilgore out today - dc PRESENTATION SPECIALIST - ppx lovenox today - therapeutic [...] care -Multimodal pain control Joselyn Everett MD [facility] General Surgery PGY1 [id number] Gadiel Armstrong MD - 08/19/2019 12:34 PM [...] Gadiel Chandler MD [facility], PGY-1 Green Photographic Printer Pager: [phone] documented in this encounter H&P Notes Jones Woo MD - 08/18/2019 3:54 PM PST DEPARTMENT OF SURGERY [facility] Surgery History and Physical Patient: Dylan Romero ([id number]) Date: 08/18/2019 Chief Complaint: Abdominal pain History [...] days and worsening pain sp driving to [facility] [email or web address]. Past Surgical History Procedure Laterality Date Tonsillectomy [...] nish limb 150 cm or less [address] [facility] [facility], laparoscopic Past Medical History: Diagnosis [...] by mouth twice daily as needed. CALCIUM CRB&PVP-N6-[id number]-GENIS ORAL Sig: Take 2 tablets by mouth [...] file Gets together: Not on file Attends moravian service: Not on file Active member of club or organization: Not on file Attends meetings of clubs or organizations: Not on file Relationship status: Not on file Other Topics Concern Not on file Social History Narrative Updated 11/09/15 She lives in [place] with her mother and her sister (also her caregiver) [facility]. She has 2 grandchildren (age 4 and 7) who live with her daughter and son-in-law Her boyfriend lives in [place] HFpEF, DM2, HTN, Sleep Apnea (unable to tolerate CPAP), Hypothyroidism, Severe Obesity ([facility] weight 495 lbs) Last seen [...] here and refer her to our marketing production specialist who also has expertise in physical [...] acute on chronic sp her travels to [place]. She is scheduled for surgery tomorrow. Admit [...] exacerbation of her pain with ride from [place] is unusual. No acu te changes noted on exam or labs. Will plan to admit and control pain overnight and operat e in am. JONES WOO MD [facility] [address] [place] [address] documented in this encounter Consult Notes Megan [...] - Anticoagulation Clinic/Provider: PCP: Dr Davison at [facility], INRs justa han at [facility] Date INR Warfarin Dose 08/23 [...] make recommendations. Please page clinical ph armacist (#[phone]) or call central inpatient pharmacy ([phone]) with questions. Megan Marx, PharmD Candidate 2019 Associated attestation - Nicholas Davison PharmD - 08/23/2019 8:21 AM PSTI have personally reviewed the patients warfarin dosing and monitoring with the pharmacy teacher. I agree wi th their assessment and plan as outlined in the note. Thank you, Nicholas Davison, PharmD Clinical Pharmacist [facility] Department of Pharmacy, CR 9-4 [address] [facility] [address] [place], [place] [address] Pager: [phone] Megan Marx - 08/22/2019 10:06 AM PST [...] - Anticoagulation Clinic/Provider: PCP: Dr Davison at [facility], INRs complet ed at [facility] Date INR Warfarin Dose 08/22 [...] make recommendations. Please page clinical ph armacist (#[phone]) or call central inpatient pharmacy ([phone]) with questions. Megan Marx, PharmD Candidate 2019 Associated attestation - Nicholas Davison PharmD - 08/23/2019 8:17 AM PSTI have personally reviewed the patients warfarin dosing and monitoring with the pharmacy teacher. I agree wi th their assessment and plan as outlined in the note. Thank you, Nicholas Davison PharmD Clinical Pharmacist [facility] Department of Pharmacy, CR 9-[address] [place], [place] [address] Pager: [phone] Nicholas Davison PharmD - 08/20/2019 8:51 AM [...] and make recommendations. Please page clinical pharmacist (#[phone]) or call central inpatient pharmacy ([phone]) with questions Subjective/Objective: Allergies: Benadrilina [diphenhydramine hcl]; [...] note Thanks, Nicholas Davison PharmD Clinical Pharmacist Critical access hospital [facility] Department of Pharmacy, CR 9-[address] [place], [place] [address] Pager: [phone] ATANGena Price - 08/18/2019 7:25 PM PST Pharmacy Services: Admission Medication Reconciliation Prior to Admission Medications: Prior to Admission Medications Prescriptions Last Dose Informant Patient Reported? Taking? ALPRAZolam 1 mg oral tablet 08/18/2019 at 05:00 Yes Yes Sig: Take 1 mg by mouth three times daily as needed. CALCIUM CRB&TGS-U2-[id number]-GENIS ORAL 08/17/2019 at PM Yes Yes Sig: [...] 50 mg by mouth once daily. thyroid (CLINICAL PATHOLOGIST THYROID) 30 mg oral tablet tab 08/17/2019 [...] regarding this information please contact pharmacy, pager [phone] Gena Price PharmD docu mented in this [...] Patient Active Problem List [facility] Priority: 1 Acute DVT (deep [...] nish limb 150 cm or less 03/01/[address] [facility], Dr Pandey Cholecystectomy, laparoscopic Medications Prior to Admission Medications Prescriptions Last Dose Informant Patient Reported? Taking? ALPRAZolam 1 mg oral tablet Yes No Sig: Take 1 mg by mouth twice daily as needed. CALCIUM CRB&MJM-J5-XMS87-GENIS ORAL Yes No Sig: Take 2 tablets [...] history - former tobacco. Currently living at [facility]. Social History Tobacco Use Smoking status: Former [...] they have plans to take [facility] [place] tomorrow, will consult them prior to [...] 1:56 PM PSTPt arrived by ambulance from [place], stating she is scheduled to have hernia surgery with Dr. Woo tomorrow. Reports worsening abd pain today, rates 7/10 and constant, with nausea. Last PO was at 1100 today. Mary Suarez RN - 08/18/2019 1:47 PM PSTBed: HW B Expected date: Expected time: Means of arrival: Comments: [id number] signed by Mary Hess RN at 08/18/2019 [...] shift to promote sleep and rest. (08/22/191952) [facility] IP NURSE HANDOFF: Jiang hospital course events: [...] RN - 08/22/2019 6:18 PM [address]Nurs[address] Handoff [facility] IP NURSE HANDOFF: NURSING ASSESSMENT & RECOMMENDATIONS [...] pain managed to allow for sleep. (08/21/191929) [facility] IP NURSE HANDOFF: Jiang hospital course events: [...] bel managed to allow for sleep. (08/20/192015) [facility] IP NURSE HANDOFF: Jiang hospital course events: [...] -Home cpap @ night -Pain controlled with wgr43tz Q4hr PRN -VSS -Ad jelena -REG diet -Periwound skin of incisions reddened. Continue to monitor. Lidocaine patch placed on abdom en for severe tenderness. Barriers to discharge: Pain management lan of Care - Micah Nieto, PT - 08/20/2019 3:55 PM PST Physical Therapy Evaluation and Discharge 08/20/2019 3:55 PM Hospital Day: 2 [id number] DYLAN ROMERO Date of : 1975 Start of care: 08/18/2019 Referring/Attending Practitioner: Jones Woo MD Primary/Referral Diagnosis/ICD-9: K43.9 Ventral hernia without obstruction or gangrene E66.01 Severe Morbid obesity (HCC), BMI 88 K46.0 Incarcerated hernia Insurance: Payor: [facility] MEDICAID / Plan: [facility] [place] / Product Type: Medicaid / Service [...] to go home, reduce pain Communication: appropriate, georgian Barriers: recurrent hernias Pain: 8/10 at incision [...] x1 down per patient request. Outcome Measure: [facility] BASIC MOBILITY Difficulty turning over in bed [...] A Little - Minimal/Contact Guard Assist/Superv ision [facility] Basic Mobility Total Score 23 Interpretation of [facility] Short Form - Basic Mobility: CMS Modifier [...] RN - 08/20/2019 4:13 [address] [facility] IP NURSE HANDOFF: Jiang hospital course events: [...] by: [place]as pain is well controlled with PRESENTATION SPECIALIST. She is tolerating well. Recommendations Forward: -Home cpap approved for use in hospital -Pain control with hydromorphone PRESENTATION SPECIALIST -Kilgore catheter in place Barriers to discharge: -PRESENTATION SPECIALIST for pain control -MIVF -Kilgore catheter p Note - Mary Theodore MD - 08/19/2019 6:26 PM PSTDate of Service: 08/19/2019 Attending Surgeon: Jones Woo MD Conditioning Coach(s): Nicholas Theodore MD Preoperative Diagnosis: Incarcerated incisional [...] the case. MD Jones Rivera MD NK/MODL /[id number] I was present for the hernia repair JONES WOO MD [facility] [address] [place] [address] rief Op Note - Nicholas Daily MD - 08/19/2019 5:18 PM PST Date of procedure: 08/19/2019 Times Event Time In Procedure Start ThuAug 19, 2019 6099 Location: [facility] Surgeon(s) and Role: * Jones Woo MD - Primary Staff: Watch Hairspring Assembler: Angelica Ga RN Scrub: ST Dwayne Watch Hairspring Assembler Relief: Amy Vega RN Scrub Relief: ST Renetta Mortgage Counselor: Nicholas Theodore MD Pre Op Dx INCARCERATED [...] Additional pain medication information: Functional Epidural: No PRESENTATION SPECIALIST: Yes Respiratory: RR: 18 , O2 Sat: 97 % , O2 Delivery: None (room air) Breath Sounds: Ex (amara with BIPAP) ALFRED: LLL: RUL: RLL: AMARA Yes Comment: no apneic breathing noticed Cardiac: BP: 128/73 HR: 74 GI: Nausea/Vomiting Status: No Signs/Symptoms: Interventions: Assessment: Comments: remains NPO : Last void: Kilgore draining Contact Name: Katalina Padilla Contact Number: [phone] (OK to leave message per patient) Family [...] Provider Specialty/Clinic: Gen surgery clinic Contact Number: [phone] to contact provider: Pager Callback required?: no Reason for callin44 y/o F w/ incarcerated hernia since January, presenting with acutely worsening pain, concern for ischemic hernia. Arriving by ambulance. Gadiel Hendricks PA-C Department of emergency medicine [phone] signed by Gadiel Hendricks PA-C at 08/18/2019 1:33 PM PSTComm Teresa Jaramillo - 08/18/2019 1:28 PM [id number] Just talked to Dr Woo, he req [...] Rd | | | | | | [place], [place] | | | | | | [address] | | | | | | [phone] | | | | | | | [...] [facility] | [address] | [place] [address] | | | SERVICES, LYDIA | LESLY [...] + | [facility] | [address] | [place] [address] | | | SERVICES, CORE | LESLY [...] + | [facility] | [address] | [place] [address] | | | SERVICES, CORE | LESLY [...] [facility] | [address] | [place], [place] | | | JUSTINE DAWN OF J[facility] | [address] | [address] | | | TESTS | | | [...] - [facility] | [address] | [place], [place] | | | JUST[facility] OF [facility] | [address] | [address] | | | TESTS | | | [...] [facility] | [address] | [place] [address] | | | SERVICES, | [address] [...] [facility] | [address] | [place] [address] | | | SERVICES, | [address] [...] - [facility] | [address] | [place], [place] | | | JUSTINE DAWN OF CARE | [address] | [address] | | | TESTS | | | | + + + + + UA, DIPSTLISA ONLY (08/18/2019 4:22 PM PST) + + [...] | [facility] | | | GRAVITY | [place] performed by | | LABORATORY | | [...] + | [facility] | [address] | [place] [address] | | | SERVICES, CORE | LESLY [...] [facility] | [address] | [place] [address] | | | SERVICES, | [address] [...] [facility] | [address] | [place] [address] | | | SERVICES, CORE | P[address] [...] [facility] | [address] | [place] [address] | | | SERVICES, CORE | PARK [...] | [facility] | [address] | [place] [address] | | | SERVICES, CORE | PARK [...] | + + + + + | [facility] | [address] | [place] [address] | | | SERVICES, CORE | LESLY [...] + | [facility] | [address] [facility] | [place] [address] | | | SERVICES, CORE | [address] | | | + + + + + ED INFORMATION EXCHANGE (08/18/2019 1:47 PM PST) + + | Specimen | + + | | + + + + + | Narrative | Performed At | + + + | COLLECTIVE?NOTIFICATION?08/18/2019 13:47?DYLAN ROMERO?MRN: | COLLECTIVE | | [id number] Criteria Met 5 Visits In 12 Months Has | MEDICAL | | Guidelines PDMP Security and Safety No recent Security Events | [employer] | | currently on file ED Care Guidelines from [facility] [place] | | | Last Updated: 12/06/18 9:53 AM Care Coordination: Receiving | | | mental health services with [facility].? Please contact [facility] for | | | mental health concerns.? Sarah/Toni Centeno: [phone]? | | | Kishan: [phone].? These are guidelines and the provider | | | should exercise clinical judgment when providing care. Care | | | History Medical/Surgical 05/24/19 12:00 AM [facility] | | | Hospital PATIENT HAS AN APT ON 06/16/[address] CARDENAS. | | | 05/11/19 12:00 AM [facility] Patient is | | | currently established with [facility]. If patient is seen in | | | the ED during business hours. Please contact CHWs at [facility] | | | Clinic. Care Recommendation: [...] care. 08/23/18 12:00 AM | | | [facility] PATIENT HAS A PCP APT TO ESTABLISH | | | CARE ON 10/04/18 @ 10:00AM WITH DR CARDENAS. Flags | | | [place] ED Disparity [place] - [place] developed a flag ([place] ED | | | Disparity Measure) to help support Medicaid members with mental | | | illness. [facility] uses claims data with a [...] are updated weekly. / Attributed By: [facility] ([facility] / | | | Attributed On: 08/09/2019 Prescription Drug Report (12 Mo.) | | | Rx Details Fill Date Drug Description Qty. Prescriber CS MED | | | 2019-08-16 HYDROCODONE-ACETAMIN 5-325 MG 10 SAMANTHA ALVARADOCATIEBarb DMD 2 16.667 | | | 2019-08-12 ALPRAZOLAM 1 MG TABLET 90 WINSTON JEFFAS 4 0 2019-08-02 | | | SUDAFED 12HR 120 MG CAPLET 30 JONES LANEY, JR. 0 2019-07-26 | | | FENTANYL 12 MCG/HR PATCH 10 BETZY BALDWIN PA-C 2 0 2019-07-12 | | | ALPRAZOLAM 1 MG TABLET 60 WINSTON SPAS 4 0 2019-07-10 SUDOGEST 12 | | | HOUR 120 MG CAPLET 30 JONES LANEY, JR. 0 2019-06-28 FENTANYL 12 | | | MCG/HR PATCH 10 BETZY BALDWIN PA-C 2 0 2019-06-27 SUDOGEST 12 | | | HOUR 120 MG CAPLET 30 [employer], JR. 0 2019-06-26 | | | HYDROCODONE-ACETAMIN 5-325 MG 10 JAYRO GAGE MD 2 2019-06-15 | | | SUDOGEST 12 HOUR 120 MG CAPLET 30 [employer], JR. 0 | | | 2019-06-14 ALPRAZOLAM 1 MG TABLET 60 WINSTON SPAS 4 0 2019-06-03 | | | SUDOGEST [...] | ALPRAZOLAM 1 MG TABLET 60 WINSTON SPAS 4 0 2019-05-14 OXYCODONE HCL 5 | [...] (12 | | | mo.) Facility Visits [facility] 1 [facility] | | | [facility] 2 [facility] 7 Total 10 Note: | | | Visits indicate total known visits. Recent Emergency Department | | | Visit Summary Date Facility City State Type Diagnoses or Chief | | | Complaint Aug 18, 2019 [facility] [place] | | | [place] Emergency 10,800. amr Jun 25, 2019 [facility]. | | | [place] Emergency jail [...] drug/meds/biol subst status | | | Other buttermilk drier operator (current) drug therapy Allergy status to | | | penicillin Jun 19, 2019 [facility] [place]. [place] Emergency | | | jail (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 Prsnl hx of [...] Jun 01, 2019 | | | [facility] [place]. [place] Emergency Headache Allergy | | | status to penicillin Anxiety disorder, unspecified | | | Obesity, unspecified Migraine, unsp, not intractable, without | | | status migrainosus Other shelter (current) drug therapy | | | Allergy status to oth drug/meds/biol subst status jail | | | (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 jail (current) use of | | | aspirin [facility] [place] Emergency | | | Anxiety disorder, unspecified Acute embolism and thrombosis of | | | deep veins of r up extrem Allergy status to penicillin | | | Other buttermilk drier operator (current) drug therapy Pain in right arm | | | jail (current) use of aspirin Allergy status to oth | | | drug/meds/biol subst status May 20, 2019 [facility] | | | [place] Emergency Generalized abdominal pain Allergy | | | status to oth drug/meds/biol subst status Unspecified abdominal | | | pain Anxiety disorder, unspecified Other chronic pain | | | Allergy status to penicillin jail (current) use of | | | aspirin Prsnl hx of TIA (TIA), and cereb infrc w/o resid | | | deficits Other buttermilk drier operator (current) drug therapy May 13, | | | 2019 [facility] [place] Emergency | | | 10,800. [...] December 03, 2018 [facility] | | | [facility]. [place] Emergency RIGHT LEG PAIN DUE TO FALL | | | Strain of unsp musc/tend at lower leg level, right leg, init | | | Aug 22, 2018 [facility] [place]. [place] Emergency Other | | | shelter (current) drug therapy Upper abdominal pain, | [...] JONES DAVISON D.M.D. Dentist: | | | Alliance Director May 23, 2019 - | | | Current Rob Tilley Chalk Tester/Garden Worker ([phone]) | | | [phone] Mar 27, 2018 - Current Bernard Cardenas MD Internal | | | Medicine: Pulmonary Disease Aug 23, 2018 - Current | | | [employer] This patient has registered at the [facility] | | | [facility] Emergency Department For more information | | | visit: | | | [email or web address] | | | [email or web address] a PLEASE NOTE: 1. Any care recommendations [...] the limitations of applicable | | | [employer] Policies. 3. You should consult directly with the | | | organization that provided a care guideline or other clinical | | | history with any questions about additional information or accuracy | | | or completeness of information provided. ? 2020 [employer] | | | [email or web address]. - [email or web address] | | + + + + + [...] on fileED Care Guidelines | | from [facility] Updated: 12/06/18 9:53 AM Care Coordination:Receiving | | mental health services with [facility].? Please contact [facility] for mental health | | concerns.? Sarah/Toni Centeno: [phone]? Kishan: [phone].?These are | | guidelines and the provider should exercise clinical judgment when providing care.Care | | HistoryMedical/Rhahiach05/29/19 12:00 AM [facility] PATIENT HAS AN APT | | ON 06/16/[address] CARDENAS.05/11/19 12:00 AM [facility] Patient is | | currently established with [facility]. If patient is seen in the ED during | | business hours. Please contact CHWs at [facility].Care Recommendation:This | | patient has [...] when providing | | care.08/23/18 12:00 AM [facility] PATIENT HAS A PCP APT TO ESTABLISH CARE | | ON 10/04/18 @ 10:00AM WITH DR CARDENAS. Flags [place] Disparity Measure - [place] has | | developed a flag ([place] Disparity Measure) to help support Medicaid members with | | mental illness. [facility] uses claims data with a [...] | updated weekly. / Attributed By: [facility] ([facility] / Attributed On: | | [...] MCG/HR PATCH 10 BETZY BALDWIN, | | HIPOLITOC 2 0 2019-07-12 ALPRAZOLAM 1 MG TABLET [...] 0 E.D. Visit Count (12 mo.)Facility Visits [facility] 1 [facility] | | [facility] 2 [facility] 7 Total 10 Note: Visits indicate | | total known visits. Recent Emergency Department Visit SummaryDate Facility City State | | Type Diagnoses or Chief Complaint Aug 18, 2019 [facility] | | [place] Emergency 10,800. amr Jun 25, 2019 [facility] 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 [place] [place] [facility] | | [...] Jun 01, 2019 | | [facility] [place] [place] [facility] Headache Allergy status to penicillin | | Anxiety disorder, unspecified Obesity, unspecified Migraine, unsp, not | | intractable, without status migrainosus Other shelter (current) drug therapy | | Allergy status to oth drug/meds/biol subst status terminal computer operator (current) use of | | anticoagulants terminal computer operator (current) use of aspirin May 23, 2019 [facility] | | [place] Emergency Anxiety disorder, unspecified Acute embolism and thrombosis of | | deep veins of r up extrem Allergy status to penicillin Other buttermilk drier operator (current) | | drug therapy Pain in right arm jail (current) use of aspirin Allergy | | status to oth drug/meds/biol subst status May 20, 2019 [facility] [place] | | Emergency Generalized abdominal pain Allergy status to oth drug/meds/biol subst | | status Unspecified abdominal pain Anxiety disorder, unspecified Other chronic | | pain Allergy status to penicillin terminal computer operator (current) use of aspirin Prsnl hx | | of TIA (TIA), and cereb infrc w/o resid deficits Other buttermilk drier operator (current) drug | | therapy May 13, 2019 [facility] [place] Emergency | | 10,800. A303 18,400. Bariatric surgery status 18,400. Ventral hernia without | | obstruction or gangrene 18,400. Nausea with vomiting, unspecified 18,400. | | Unspecified abdominal pain 18,400. Nonspecific mesenteric lymphadenitis May 10, 2019 | | [facility] [place] [place] Emergency Nausea with vomiting, [...] status to penicillin November | | 2018 [facility]. 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 Care TeamProvider Specialty | | Phone Fax Service Dates Eagle Nino [facility] Community Health Worker | | Jul 03, 2019 - Current JONES DAVISON D.M.D. Dentist: Alliance Director [phone] | | [phone] May 23, 2019 - Current Rob Tilley Chalk Tester/Care | | Coordinator Mar 27, 2018 - Current Bernard Cardenas MD Internal Medicine: | | Pulmonary Disease Aug 23, 2018 - Current VocalZoomThis patient has registered | | at the [facility] Emergency Department For more information | | visit: [email or web address] | | PLEASE NOTE: 1. Any care [...] completeness of information | | provided.? 2019 [employer] | | Allergy status to oth drug/meds/biol subst status | | Other buttermilk drier operator (current) drug therapy | | Allergy status to penicillin | | | |Jun 19, 2019 [facility] [place] [place] Emergency | | jail (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 | | Prsnl [...] | | | |Jun 01, 2019 [facility] [place] [place] Emergency | | Headache | | Allergy status to penicillin | | Anxiety disorder, unspecified | | Obesity, unspecified | | Migraine, unsp, not intractable, without status migrainosus | | Other shelter (current) drug therapy | | Allergy status to oth drug/meds/biol subst status | | jail (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 | | terminal computer operator (current) use of aspirin | | | |May 23, 2019 [facility] [place] [place] Emergency | | Anxiety disorder, unspecified | | Acute embolism and thrombosis of deep veins of r up extrem | | Allergy status to penicillin | | Other shelter (current) drug therapy | | Pain in right arm | | terminal computer operator (current) use of aspirin | | Allergy status to oth drug/meds/biol subst status | | | |May 20, 2019 [facility] [place] [place] Emergency | | Generalized abdominal pain | | Allergy status to oth drug/meds/biol subst status | | Unspecified abdominal pain | | Anxiety disorder, unspecified | | Other chronic pain | | Allergy status to penicillin | | jail (current) use of aspirin | | Prsnl hx of TIA (TIA), and cereb infrc w/o resid deficits | | Other shelter (current) drug therapy | | | |May 13, 2019 [facility] [place] Emergency | | 10,800. A303 | | 18,400. Bariatric surgery status | | 18,400. Ventral hernia without obstruction or gangrene | | 18,400. Nausea with vomiting, unspecified | | 18,400. Unspecified abdominal pain | | 18,400. Nonspecific mesenteric lymphadenitis | | | |May 10, 2019 [facility] [place] [place] Emergency | | Nausea [...] | | | |December 03, 2018 [facility]. [place] Emergency | | RIGHT LEG PAIN DUE TO FALL | | Strain of unsp musc/tend at lower leg level, right leg, init | | | |Aug 22, 2018 [facility] [place] [place] Emergency | | Other [...] - Current | |JONES DAVISON D.M.D. Dentist: Alliance Director May 23, 2 019 - Current | |Rob Tilley Chalk Tester/Garden Worker Mar 27, 2018 - Current | |Bernard Cardenas MD Internal Medicine: Pulmonary Disease Aug 23, 2018 - Current | | | |Collective Portal | |This patient has registered at the [facility] Emergency Departmen t | |For more information visit: [email or web address] | |PLEASE NOTE: | | 1. Any [...] information provided. | | | |? 2020 [employer]. - [email or web address] | + + + + + + + | Performing | Address | City/State/Zipcode | Phone Number | | Organization | | | | + + + + + | [employer] | [address] | [place], [place] | [phone] | | [employer] | [address] | [address] | | + + + + + [...] | | | | | 1821, Until e 08/23/19 at 1901, | | [...]
--- OUTSIDE RECORDS SUMMARY | ~2020-04-17 | XMS | Encounter Summary ---
Demographics + + + | Address | [address] | | | [place] [address] | + + + | Home Phone [...] [place], [place] | | | | | [address] | | + + + + + | Ellie Vang | ECON | Unknown | | + + + + + Care Team Providers + +------+ + | Care Filteration Operator Name | Role | Phone | [...] | | 2019 | | Preventive at [facility] | [address] | re-test? ) | | | | [address] | [place], [place] | | | | | [facility] | [address] | | | | | and [place], | [phone] | | | | | [address] | | | | | | [place], [place] | | | | | | [address] | | | | | | [phone] | | | +--------+ + + + [...] and acknowledged the instructions. Orders faxed to [facility] in [facility] for collection local to [...] do not yet have an appointment in [facility], route to the molder pipe covering of the discharging capability lead. See discharge summary for i nformation~~~ elephone [...] up with provider to help determine if [facility] lab work is required. Telephone Encounter - [...] Rd | | | | | | [place], [place] | | | | | | [address] | | | | | | [phone] | | | | | | | | +--------+---------+ + + + documented as of this encounter Visit Diagnoses + + | Diagnosis | + + | Hypothyroidism, unspecified type - Primary | + + documented in this encounter"
--- OUTSIDE RECORDS SUMMARY | ~2020-04-17 | XMS | Encounter Summary ---
Demographics + + + | Address | [address] | | | [place] [address] | + + + | Home Phone [...] [place], [place] | | | | | [address] | | + + + + + | Ellie Vang | ECON | Unknown | | + + + + + Care Team Providers + +------+ + | Care Pneumatic Tool Repairer Name | Role | Phone | [...] [facility] | MD [address] | | | | | Center at [address] | [facility] [place] | | | | | [address] | [address] | | | | | for Health and | [phone] | | | | | [facility] [address] | | | | | | [place], [place] | | | | | | [address] | | | | | | [phone] | | | +--------+ + + + [...] called in Phentermine 37.5 MG tab to [facility] [address] [phone]. [address] Franks's order. STUART THAPA RN [...] [place] | | | | | | [address] | | | | | | [phone] | | | | | | | | +--------+---------+ + + + documented as of this encounter Visit Diagnoses Not on filedocumented in this encounter"
--- OUTSIDE RECORDS SUMMARY | ~2020-04-17 | XMS | Encounter Summary ---
Demographics + + + | Address | [address] | | | [place] [address] | + + + | Home Phone [...] [place], [place] | | | | | [address] | | + + + + + | Ellie Vang | ECON | Unknown | | + + + + + Care Team Providers + +------+ + | Care Meat Molder Name | Role | Phone | [...] 2018 | Event | [address] | oJann Person MD,PhD | | | | | [facility] | [address] | | | | | Hospital Admitting | [place], [place] | | | | | Desk Located on the | [address] | | | | | 9th floor | [phone] | | | | | [place], [place] | | | | | | [address] | Graham Honeycutt, | | | | | | ETHNOARCHAEOLOGIST [address] | | | | | | [address] | | | | | | [place], [place] | | | | | | [address] | | | | | | [phone] | | | | | | | [...] | | Endotracheal Tube; 7; Oral; | ETHNOARCHAEOLOGIST | ETHNOARCHAEOLOGIST | | | Cuffed; 06/23/18; 1542 | [...] be different from the original. Elzbieta Cristina [id number] Allergies Allergen Reactions Amoxicillin Unknown Benadrilina [Diphenhydramine [...] nilesh limb 150 cm or less 8 [facility] Pand[facility] Temp: 36.1 C (97 F) Heart [...] 06/23/2018 2:18 PM PS T Elzbietairma Rinconch [id number] Allergies Allergen Reactions Amoxicillin Unknown Benadrilina [Diphenhydramine [...] nilesh limb 150 cm or less 8 [facility], Dr Pandey Current Medication List Name Sig [...] Place under tongue once daily. 06/22/2018 CALCIUM CRB&LCB-A6-HBN12-GENIS ORAL Take 2 tablets by mouth two [...] Date RATE 110 02/22/2018 ATRIALRATE 110 02/22/2018 NC 170 02/22/2018 QRS 98 02/22/2018 QT 339 [...] disease no hepatitis Renal: no renal failure Urology/Health Care Consultant: Urologic Conditions: nephrolithiasis Endo: Diabetes: type 2 [...] devices: Other Implanted Devices hardware ankle, right 3427 Anesthesia Plan Comments ASA ASA 3 NPO [...] disease no hepatitis Renal: no renal failure Urology/Health Care Consultant: Urologic Conditions: nephrolithiasis Endo: Diabetes: type 2 [...] renal failure no electrolyte abnormalities no dialysis Urology/Health Care Consultant: Urologic Conditions: nephrolithiasis Endo: Diabetes: type 2 [...] | | 2019 | Visit | | [address] | | | | | | [address] | | | | | | [place], [place] | | | | | | [address] | | | | | | [phone] | | | | | | | [...] 3:34 | | | | | Starting 06/23/18 at 1420, | anesthes | PM PST | | | | | Until 06/23/18 at 1542 | iology | | | [...]
--- OUTSIDE RECORDS SUMMARY | ~2020-04-17 | XMS | Encounter Summary ---
Demographics + + + | Address | [address] | | | [place] [address] | + + + | Home Phone [...] [place], [place] | | | | | [address] | | + + + + + | Ellie Vang | ECON | Unknown | | + + + + + Care Team Providers + +------+ + | Care Torpedo Shooter Name | Role | Phone | + +------+ + | Jorje iHll MD | PCP | | + +------+ [...] | | | | | | [address] [place], [place] | | | | | | [address] | | | | | | [phone] | | | +--------+ + + + [...] Rd | | | | | | [place], [place] | | | | | | [address] | | | | | | [phone] | | | | | | | | +--------+---------+ + + + documented as of this encounter Visit Diagnoses Not on filedocumented in this encounter"
--- OUTSIDE RECORDS SUMMARY | ~2020-04-17 | XMS | Encounter Summary ---
Demographics + + + | Address | [address] | | | [place] [address] | + + + | Home Phone [...] [place], [place] | | | | | [address] | | + + + + + | Ellie Vang | ECON | Unknown | | + + + + + Care Team Providers + +------+ + | Care Return Clerk Name | Role | Phone | + +------+ + | Fadi Goodrich DO | PCP | | + +------+ + Encounter Details +--------+ + + + + | Date | Type | Department | Care Team | Description | +--------+ + + + + | 02/10/ | Abstract | Digestive Health | [place] Brian, | | | 2012 | | [place] [address] [address] | [address] [facility] | | | | | [address] [facility] | [facility] | | | | | for [facility] and | [place], [place] | | | | | [facility] 2 | [address] | | | | | [place], [place] | [phone] | | | | | [address] | | | | | | [phone] | | | +--------+ + + + [...] | | 2019 | Visit | | [address] | | | | | | [address] | | | | | | [place], [place] | | | | | | [address] | | | | | | [phone] | | | | | | | | +--------+---------+ + + + documented as of this encounter Visit Diagnoses Not on filedocumented in this encounter"
--- OUTSIDE RECORDS SUMMARY | ~2020-04-17 | XMS | Encounter Summary ---
Demographics + + + | Address | [address] | | | [place] [address] | + + + | Home Phone [...] | Organization | [facility] [...] Providers + +------+ + | Care Concrete Rubber Name | Role | Phone | [...] | specified | MD [address] | STOREROOM KEEPER [address] | | | | | diseases of | [address] | [address] | | | | | liver | [place], | [address] | | | | | Procedures | [place] | [place], | | | | | office visit | [address] | [place] [address] | | | | | | Phone: | Phone: | | | | | | [phone] | [phone] | | | | | | Fax: | Fax: | | | | | | [phone] | [phone] | +--------+--------+ + + + + Encounter Details +--------+---------+ + + + | Date | Type | Department | Care Team | Description | +--------+---------+ + + + | 02/15/ | Office | [facility] | [facility], | Fatty infiltration | | 2019 | Visit | GASTROENTEROLOGY | SELINA Montes [address] | of liver (Primary | | | | [address] | [address] | Dx); History of | | | | [address] [place], [place] | [place], [place] | Frandy-en-Y gastric | | | | [address] | [address] | bypass; Itching; | | | | [phone] | | Diarrhea, | | | | [...] 1975: AGE: 43 y.o. REFERRED BY: Kenyatta Cardneas PRIMARY CARE: Kenyatta Cardenas MD Subjective: CHIEF COMPLAINT: Elzbieta Cristina is a 43 y.o. female referred by Kenyatta Cardenas MD for evaluation and treatment of abnormal imaging of liver. HISTORY OF PRESENT ILLNESS: She has history of Bertha en Y gastric bypass done 03/03/2018 at [facility]. She reports that approximately 3 months [...] well. She is scheduled to see her [facility] atric surgeons within the next 2 weeks. [...] right ventricular diastolic dysfunction (HCC) 10/26/2015 Overview: [facility] Last Assessment & Plan: Patient with [...] m inimally to prevent oversedation and worsening hypoxia/AMRAA; she mostly required 0.5mg qhs to help tolerate her new BiPAP -Cont Candidal intertrigo 06/16/2013 Chronic diastolic heart failure (HCC) 12/25/2015 Last Assessment & Plan: Heart failure of preserved EF- recent DVT/PE/Cellulitis/ morbid o besity Pickwickian syndrome Recent admission to [facility] for 100lb weight gain- DC on [...] (HCC) 04/14/2013 Diabetes mellitus with insulin therapy ([facility]) 12/27/2014 DM (diabetes mellitus) ([facility]) 05/09/2016 Overview: A1c 5.29 Aug 2014 [...] with morbid obesity, she is enrolled in [facility] bariatric program. She has lost approximately 50 [...] Plan: TSH WNL 10/2015. She is on sidney thyroid as OP. -TSH WNL -continu e supplementation here Hypoventilation associated with obesity ([facility]) 06/16/2013 Last Assessment & Plan: [facility] Bariatric Program, has lost 50lbs. STEFANO (iron deficiency anemia) 02/03/2019 Overview: Presumed due to menses. Venofer 200 qd x 30 October 2015 [facility] Last Assessment & P sharon: Hgb [...] She is to follow-up with surgeons at [facility] as planned. Patient is to call [...] D | | | | | | [place] [address] | | | | | | [phone] | | | | | | | [...]
--- OUTSIDE RECORDS SUMMARY | ~2020-04-17 | XMS | Encounter Summary ---
Demographics + + + | Address | [address] | | | [place] [address] | + + + | Home Phone [...] [place], [place] | | | | | [address] | | + + + + + | Ellie Vang | ECON | Unknown | | + + + + + Care Team Providers + +------+ + | Care Buckle Sewer Machine Name | Role | Phone | [...] | | | | | | [place], [place] | | | | | | [address] | | | | | | [phone] | | | +--------+ + + + [...] | | 2019 | Visit | | [address] | | | | | | [address] | | | | | | [place], [place] | | | | | | [address] | | | | | | [phone] | | | | | | | | +--------+---------+ + + + documented as of this encounter Visit Diagnoses Not on filedocumented in this encounter"
--- OUTSIDE RECORDS SUMMARY | ~2020-04-17 | XMS | Encounter Summary ---
Demographics + + + | Address | [address] | | | [place] [address] | + + + | Home Phone [...] Team Providers + +------+ + | Care Chop Saw Operator Name | Role | Phone [...] + + | 06/10/ | Telephone | [facility] | [place], | Referral | | 2019 | | INTERVENTIONAL | Mary Ortiz | | | | | RADIOLOGY [address] | | | | | [address] | | | | | | [place], [place] | | | | | | [address] | | | | | | [phone] | | | +--------+ + + + [...] Referring Physician: Jorje Hill MD Office contact: [facility] Imaging: none Patient Dx: Acute embolism and thrombosis of deep veins of right upper extremity Patient BMI: 56.81kg/m2 Blood thinners: aspirin 81mg Any Red Flags?: Electronically signed by Diana Alcantara, Facility Coordinator at 9 9:38 AM PSTdocumented in this [...] D | | | | | | [place] [address] | | | | | | [phone] | | | | | | | | +--------+ + + + + documented as of this encounter Visit Diagnoses Not on filedocumented in this encounter"
--- OUTSIDE RECORDS SUMMARY | ~2020-04-17 | XMS | Encounter Summary ---
Demographics + + + | Address | [address] | | | [place] [address] | + + + | Home Phone [...] [place], [place] | | | | | [address] | | + + + + + | Ellie Vang | ECON | Unknown | | + + + + + Care Team Providers + +------+ + | Care Prepress Proofer Name | Role | Phone | + [...] | | 2020 | | Center at [facility] [address] | MD [address] | | | | | [facility] | [facility] | | | | | [facility] and | [place], [place] | | | | | [place] [address] | [address] | | | | | [place], [place] | [phone] | | | | | [address] | | | | | | [phone] | | | +--------+ + + + [...] [facility] her [facility] become unmanageable. [...] for any medication to be sent to [facility] in [place], if presc ribed. Recommendations: Will follow up [...] her Please return call documented in this [facility] Plan of Treatment +--------+---------+ + + + | Date | Type | Specialty | Care Team | Description | +--------+---------+ + + + | 06/08/ | Office | Plastic Surgery | Antoinette Hale, | | | 2019 | Visit | | [address] | | | | | | [address] | | | | | | [place], [place] | | | | | | [address] | | | | | | [phone] | | | | | | | | +--------+---------+ + + + documented as of this encounter Visit Diagnoses Not on filedocumented in this encounter"
--- OUTSIDE RECORDS SUMMARY | ~2020-04-17 | XMS | Encounter Summary ---
Demographics + + + | Address | [address] | | | [place] [address] | + + + | Home Phone [...] + + + | Author | [facility] | | | and Jeffana | + + + | Organization | [facility] | | [...] Team Providers + +------+ + | Care Intermodal Truck Driver Name | Role | Phone | + +------+ + PCP | Unavailable | + +------+ + Encounter Details +--------+ + + + + | Date | Type | Department | Care Team | Description | +--------+ + + + + | 10/20/ | Orders Only | [facility] | Dharmesh Escobar, | | | 2016 | | NEPHROLOGY [place] | [address] | | | | | [address] | [address] | | | | | [address] [place], [place] | [place] | | | | | [address] | [address] | | | | | [phone] | [phone] | | | | | | | [...] D | | | | | | [place] [address] | | | | | | [phone] | | | | | | | [...]
--- OUTSIDE RECORDS SUMMARY | ~2020-04-17 | XMS | Encounter Summary ---
Demographics + + + | Address | [address] | | | [place] [address] | + + + | Home Phone [...] [place], [place] | | | | | [address] | | + + + + + | Ellie Vang | ECON | Unknown | | + + + + + Care Team Providers + +------+ + | Care Juice Scaleman Name | Role | Phone | + [...] | 2015 | Visit | Center at [facility] [address] | [address] [facility] | (Primary Dx); | | | | [address] [place] | [facility] [address] | Diabetes mellitus | | | | for [facility] and | [place], [place] | with insulin therapy | | | | [place] [address] | [address] | (HCC) | | | | [place], [place] | [phone] | | | | | [address] | | | | | | [phone] | | | +--------+---------+ + + + [...] of Visit: 1:30 to 1:55 (25 minutes xokr-pu-fiij with patient). Pt seen tog ether with Rossana Espinoza RD (training) SUBJECTIVE: Working with RN to get access to [employer] war water exercises. States she was down to 374lbs by following LRD but with complications (n/v, fainting) - need to obtain records from PCP andresi t. Food Allergies: No Current Physical Activity: Nothing - plans to start swimming this week Diet Recall Moxee (100kcal) + Activia Light - 60kcal Atkins [...] post-surgery diet progression. 4. Call or send [employer] message to dietitian with any questions. Contact information was provided. Follow up with dietitian via telephone 1 week after beginning water exercises for weight ch addie. Yuli Childs RD, CNSC, LD Pager# [phone] Rossana Espinoza MS, RD Pgr #[id number] documented i n this encounter Plan of [...] Rd | | | | | | [place], [place] | | | | | | [address] | | | | | | [phone] | | | | | | | | +--------+---------+ + + + documented as of this encounter Procedures + +--------+ + + + | Procedure Name | Priori | Date/Time | Associated Diagnosis | Comments | | | ty | | | | + +--------+ + + + | RI MNT RE-ASSESSMNT | Routin | 12/27/2014 | [...]
--- OUTSIDE RECORDS SUMMARY | ~2020-04-17 | XMS | Encounter Summary ---
Demographics + + + | Address | [address] | | | [place] [address] | + + + | Home Phone [...] [place], [place] | | | | | [address] | | + + + + + | Ellie Vang | ECON | Unknown | | + + + + + Care Team Providers + +------+ + | Care Purchasing Buyer Name | Role | Phone | [...] | gastric bypass; | | | | [facility] | | Ventral hernia | | | | and Healing, | | without obstruction | | | | Building [address] | | or gangrene; Mixed | | | | [place], [place] | | hyperlipidemia; | | | | [address] | | Diabetes mellitus | | | | [phone] | | type 2 without | | [...] Rd | | | | | | [place], [place] | | | | | | [address] | | | | | | [phone] | | | | | | | [...] | + + + + + | [facility] [facility] | [address] | [place] [address] | | | SERVICES, CORE | CLARENCE [...] + + + + | [facility] | [address] [facility] | [place] [address] | | | SERVICES, CORE | CLARENCE [...] (H)Comment: Hgb A1C | <5.7 % | DESU | | | A1C | Interpretive | [...] | + + + + + | [facility] | [address] | [place] [address] | | | SERVICES, SPECIAL | CLARENCE [...] INTERPRETIVE | 70 - 180 nmol/L | [facility] | | | WHOLE | INFORMATION: Vitamin [...] B: | | | | | | Communicado.[facility]/CSPerformed | | | | | | by Celiro,500 | | | | | | Liliana Martinez [facility] [place] | | | | | | [address] | | | | | | [phone].Communicado. | | | | | | com, [...] [facility] | [address] | [place], [place] | | | UN[facility] P[facility] INT[facility] | | [address] | | + + + + + [...] | [facility] | [address] | [place] [address] | | | SERVICES, LYDIA | CLARENCE [...] | [facility] | [address] | [place] [address] | | | SERVICES, CORE | PARK [...] [facility] | [address] | [place] [address] | | | SERVICES, CORE | PARK [...] HEALTH H[facility] | [address] | [place] [address] | | | SERVICES, CORE | CLARENCE [...] [facility] | [address] | [place] [address] | | | SERVICES, CORE | PARK [...] | [facility] | [address] | [place] [address] | | | SERVICES, CORE | PARK [...]
--- OUTSIDE RECORDS SUMMARY | ~2020-04-17 | XMS | Encounter Summary ---
Demographics + + + | Address | [address] | | | [place] [address] | + + + | Home Phone [...] [place], [place] | | | | | [address] | | + + + + + [...] | | 2 diabetes | [place], | [place], [place] | | | | | mellitus | [place] [address] | [address] | | | | | without | Phone: | Phone: | | | | | complication | [phone] | [phone] | | | | | (HCC) | Fax: | Fax: | | | | | Procedures | [phone] | [phone] | | | | | [place] EST [...] | unspecified type | | | | [place] at | [place], [place] | (Primary Dx); Severe | | | | [place] [address] [address] | [address] | Morbid obesity | | | | [address] [facility] | [phone] | (HCC), BMI 88 | | | | [facility] | | | | | | [place], [place] | | | | | | [address] | | | | | | [phone] | | | +--------+---------+ + + + [...] due to Bromocriptine Type 2 diabetes mellitus ([facility]) 04/14/2013 Past Surgical History Procedure Laterality Date [...] nilesh limb 150 cm or less [address] [facility] Cholecyst[facility], laparoscopic Current Outpatient Medications Medication [...] by mouth once daily at bedtime. CALCIUM CRB&OOP-A5-MCT00-GENIS ORAL Take 2 tablets by mouth two [...] 50 mg by mouth once daily. 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) 30 mg oral tablet tab Take [...] 9 CREATININE PLASMA (LAB) 0.82 EGFR - TANZANIAN >60 EGFR NON -TANZANIAN >60 GLUCOSE, PLASMA (LAB) 94 CALCIUM, PLASMA [...] is currently being managed well by her Administrative Assistant Receptionist with diuretics and main tenance of her [...] management of her heart failure by her Administrative Assistant Receptionist 3) Continue management of her ventral hernia [...] | | 2019 | Visit | | [address] | | | | | | [address] | | | | | | [place], [place] | | | | | | [address] | | | | | | [phone] | | | | | | | | +--------+---------+ + + + documented as of this encounter Procedures + +--------+ + + + | Procedure Name | Priori | Date/Time | Associated Diagnosis | Comments | | | ty | | | | + +--------+ + + + | TX COLLECTION VENOUS | Routin | 09/15/2019 | [...] [facility] | [address] | [place] [address] | | | SERVICES, CORE | PARK [...] | + + + + + | [facility] | [address] | [place] [address] | | | SERVICES, CORE | CLARENCE [...] | + + + + + | [facility] | [address] | [place] [address] | | | SERVICES, SPECIAL | CLARENCE [...]
--- OUTSIDE RECORDS SUMMARY | ~2020-04-17 | XMS | Encounter Summary ---
Demographics + + + | Address | [address] | | | [place] [address] | + + + | Home Phone [...] [place], [place] | | | | | [address] | | + + + + + | Ellie Vang | ECON | Unknown | | + + + + + Care Team Providers + +------+ + | Care Water Taxi Ferry Operator Name | Role | Phone | [...] | | | | | | [place], [place] | | | | | | [address] | | | | | | [phone] | | | +--------+ + + + [...] | | 2019 | Visit | | [address] | | | | | | [address] | | | | | | [place], [place] | | | | | | [address] | | | | | | [phone] | | | | | | | | +--------+---------+ + + + documented as of this encounter Visit Diagnoses Not on filedocumented in this encounter"
--- OUTSIDE RECORDS SUMMARY | ~2020-04-17 | XMS | Encounter Summary ---
Demographics + + + | Address | [address] | | | [place] [address] | + + + | Home Phone [...] [place], [place] | | | | | [address] | | + + + + + | Ellie Vang | ECON | Unknown | | + + + + + Care Team Providers + +------+ + | Care Hydraulic Rockbreaker Operator Name | Role | Phone | + +------+ + | Fadi Goodrich DO | PCP | | + +------+ + Encounter Details +--------+ + + + + | Date | Type | Department | Care Team | Description | +--------+ + + + + | 10/19/ | Abstract | Digestive Health | Clinic, Surgery | | | 2017 | | [place] at [facility] [address] | | | | | | [address] [facility] | | | | | | for Health and | | | | | | [facility] 2 | | | | | | [place], [place] | | | | | | [address] | | | | | | [phone] | | | +--------+ + + + [...] | | 2019 | Visit | | [address] | | | | | | [address] | | | | | | [place], [place] | | | | | | [address] | | | | | | [phone] | | | | | | | | +--------+---------+ + + + documented as of this encounter Visit Diagnoses Not on filedocumented in this encounter"
--- OUTSIDE RECORDS SUMMARY | ~2020-04-17 | XMS | Encounter Summary ---
Demographics + + + | Address | [address] | | | [place] [address] | + + + | Home Phone [...] [place], [place] | | | | | [address] | | + + + + + | Ellie Vang | ECON | Unknown | | + + + + + Care Team Providers + +------+ + | Care Per Diem Name | Role | Phone | + +------+ + | Fadi Goodrich DO | PCP | | + +------+ + Encounter Details +--------+------+ + + + | Date | Type | Department | Care Team | Description | +--------+------+ + + + | 08/28/ | Lab | Laboratory at [facility] | | Type 2 diabetes | | 2014 | | [address] | | mellitus (HCC) | | | | [facility] | | | | | | and Healing, | | | | | | Building [address] | | | | | | [place], [place] | | | | | | [address] | | | | | | [phone] | | | +--------+------+ + + + [...] | | 2019 | Visit | | [address] | | | | | | [address] | | | | | | [place], [place] | | | | | | [address] | | | | | | [phone] | | | | | | | [...] HOSPITAL LAB[facility]ATORY | [address] | [place] [address] | | | LYDIA RANGEL | CLARENCE [...] | + + + + + | [facility] | [address] | [place] [address] | | | SERVICES, SPECIAL | PARK [...]
--- OUTSIDE RECORDS SUMMARY | ~2020-04-17 | XMS | Encounter Summary ---
Demographics + + + | Address | [address] | | | [place] [address] | + + + | Home Phone [...] [place], [place] | | | | | [address] | | + + + + + | Ellie Vang | ECON | Unknown | | + + + + + Care Team Providers + +------+ + | Care Porter Sample Case Name | Role | Phone | + [...] | | | | [address] | [place], [place] | | | | | Physicians [place], | [address] | | | | | 2nd Floor | [phone] | | | | | [place], [place] | | | | | | [address] | | | | | | [phone] | | | +--------+---------+ + + + [...] Dr. Andie Brian Incisional hernia repair 02/2015 [facility]/ Dr. Cantu PHYSICAL EXAMINATION: BP 133/63 [...] SCHAEFFER MD [facility] GENERAL SURGERY AT [address] Mailcode: [address] [place] [address] documented in this encounter Plan of Treatment +--------+---------+ + + + | Date | Type | Specialty | Care Team | Description | +--------+---------+ + + + | 06/08/ | Office | Plastic Surgery | Antoinette Hale, | | | 2019 | Visit | | [address] [place] [address] | | | | | | [facility] | | | | | | [place], [place] | | | | | | [address] | | | | | | [phone] | | | | | | | | +--------+---------+ + + + documented as of this encounter Visit Diagnoses + + | Diagnosis | + + | Incarcerated incisional hernia - Primary Incisional hernia with obstruction | + + documented in this encounter"
--- OUTSIDE RECORDS SUMMARY | ~2020-04-17 | XMS | Encounter Summary ---
Demographics + + + | Address | [address] | | | [place] [address] | + + + | Home Phone [...] + | Katalina Padilla | ECON | [address] | | | | | [place], [place] | | | | | [address] | | + + + + + | Ellie Vang | ECON | Unknown | | + + + + + Care Team Providers + +------+ + | Care Paint Line Production Supervisor Name | Role | Phone | + +------+ + | Fadi Goodrich DO | PCP | | + +------+ + Encounter Details +--------+ + + + + | Date | Type | Department | Care Team | Description | +--------+ + + + + | 12/29/ | Abstract | Digestive Health | Hernandez Brian, | | | 2012 | | [place] [address] [address] | [address] [facility] | | | | | [address] [facility] | [facility] | | | | | for [facility] and | [place], [place] | | | | | [facility] 2 | [address] | | | | | [place], [place] | [phone] | | | | | [address] | | | | | | [phone] | | | +--------+ + + + [...] | | 2019 | Visit | | [address] | | | | | | [address] | | | | | | [place], [place] | | | | | | [address] | | | | | | [phone] | | | | | | | | +--------+---------+ + + + documented as of this encounter Visit Diagnoses Not on filedocumented in this encounter"
--- OUTSIDE RECORDS SUMMARY | ~2020-04-17 | XMS | Encounter Summary ---
Demographics + + + | Address | [address] | | | [place] [address] | + + + | Home Phone [...] [place], [place] | | | | | [address] | | + + + + + | Ellie Vang | ECON | Unknown | | + + + + + Care Team Providers + +------+ + | Care Drive In Theater Attendant Name | Role | Phone | [...] | | | without | [place] | [address] | | | | | mention of | | Phone: | | | | | obstruction | | [phone] | | | | | or gangrene | | Fax: | | | | | | | [phone] | +--------+--------+ + + + + Encounter [...] Floor | | | | | | [place], [place] | | | | | | [address] | | | | | | [phone] | | | +--------+---------+ + + + [...] fine, afebrile. Abdominal exam is completely benign. Mar Lin are still in, And wound is healed. Mar Lin removed. Drainage is serous, very slight sanguinous. No eviden ce of deep subcutaneous infection. Abdominal wall currently intact. Drain site OK. Assessment/Plan: Satisfactory course following primary repair of incarcerated umbilical he rnia. Pt. Wants to obtain care, including drain removal and diabetic care in [place], so I have referred her to her [...] [address] | | | | | | [facility] [address] | | | | | | [place], [place] | | | | | | [address] | | | | | | [phone] | | | | | | | [...]
--- OUTSIDE RECORDS SUMMARY | ~2020-04-17 | XMS | Encounter Summary ---
Demographics + + + | Address | [address] | | | [place] [address] | + + + | Home Phone [...] [place], [place] | | | | | [address] | | + + + + + | Ellie Vang | ECON | Unknown | | + + + + + Care Team Providers + +------+ + | Care Area Development Manager Name | Role | Phone [...] Mailcode:[id number] | | | | | | [facility] | | | | | | [place], [place] | | | | | | [address] | | | | | | [phone] | | | +--------+ + + + [...] | | 2019 | Visit | | [address] | | | | | | [address] | | | | | | [place], [place] | | | | | | [address] | | | | | | [phone] | | | | | | | [...] | | | | | | [place], [place] | | | | | | [address] | | | | | | DrRenee [...] | | | | artery. A 5.5 Lao | | | | | | Ozzy [...] | | + +---------+ + + | [facility] | | | | | RADIOLOGY | | | | + +---------+ + + documented in this encounter Visit Diagnoses Not on filedocumented in this encounter
--- OUTSIDE RECORDS SUMMARY | ~2020-04-17 | XMS | Encounter Summary ---
Demographics + + + | Address | [address] | | | [place] [address] | + + + | Home Phone [...] [place], [place] | | | | | [address] | | + + + + + | Ellie Vang | ECON | Unknown | | + + + + + Care Team Providers + +------+ + | Care Housekeeper Cleaning Cooking Name | Role | Phone | + [...] [address] | | | | | [facility] | [address] | | | | | Hospital Admitting | [place], [place] | | | | | Desk Located on the | [address] | | | | | 9th floor | [phone] | | | | | [place], [place] | | | | | | [address] | Nitin Brunner CRNA | | | | | | [address] | | | | | | Lesly Gutiérrez [facility] | | | | | | [place] [address] | | | | | | [phone] | | | | | | | [...] 1622 by | | D - | jaonus bilaterally; Yes; | Miladis Braga RN | [...] be different from the original. Elzbieta Cristina [id number] Allergies Allergen Reactions Amoxicillin Benadrilina [Diphenhydramine Hcl] [...] be different from the original. Elzbieta Cristina [id number] Allergies Allergen Reactions Amoxicillin Benadrilina [Diphenhydramine Hcl] [...] mg by mouth once daily. 08/28/2014 CALCIUM CRB&UMQ-R7-JDM60-GENIS ORAL Take 1 tablet by mouth two [...] Date RATE 96 11/06/2012 ATRIALRATE 96 11/06/2012 WY 164 11/06/2012 QRS 92 11/06/2012 QT 376 11/06/2012 QTC 475 11/06/2012 PAXIS 35 11/06/2012 RAXIS 60 11/06/2012 TAXIS 45 11/06/2012 EKGDX Value: Normal sinus rhythm Normal ECG "I have personally interpreted this report, e ither alone or with a trainee." Confirmed by CARINA SMITH ([id number]) on 11/06/2012 3:29:04 PM Preoperative Adult Anesthesia Plan Last edited 03/01/15 9798 by Michelle Enriquez MD ROS Pertinent HPI: [...] Rate: normal Abdominal: Musculoskeletal: Neuro/Psych: Integument: Implants: 7432 Anesthesia Plan Comments ASA ASA 3 NPO [...] | | 2019 | Visit | | [address] [facility] | | | | | | [address] | | | | | | [place], [place] | | | | | | [address] | | | | | | [phone] | | | | | | | [...] | | | | | Until Jasmyne 8/6/15 at 1204 | | | | | [...]
--- OUTSIDE RECORDS SUMMARY | ~2020-04-17 | XMS | Encounter Summary ---
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 | Intra Op [address] | | | | | thrombosis | MD Natan | [address] | | | | | (DVT) of | [address] | [place], [place] | | | | | left lower | [address] | [address] | | | | | extremity, | Roshan E | Phone: | | | | | unspecified | [place], [place] | [phone] | | | | | chronicity, | [address] | Fax: | | | | | unspecified | Phone: | [phone] | | | | | vein (HCC) | [phone] | | | | | | Procedures | Fax: | | | | | | IR Removal | [phone] | | | | | | Fibrin [...] + + | 06/14/ | Telephone | [facility] | Dharmesh Fierro, | Procedure | | 2019 | | INTERVENTIONAL | RN | | | | | RADIOLOGY [address] | | | | | | [address] | | | | | | [place], [place] | | | | | | [address] | | | | | | [phone] | | | +--------+ + + + [...] | | | | | [place] [address] | | | | | | [phone] | | | | | | | [...] by: Samir | | | Christian Knox Date/Time: 06/22/2019 [...] | | | | | Signed by: Aiblio Dawson David | | Sign Date/Time: 06/22/2019 5:17 PM | + + + +---------+ + + | Performing | Address | [facility] | Phone Number | | Organization | [...]
--- OUTSIDE RECORDS SUMMARY | ~2020-04-17 | XMS | Encounter Summary ---
Demographics + + + | Address | [address] | | | [place] [address] | + + + | Home Phone [...] [place], [place] | | | | | [address] | | + + + + + | Ellie Vang | ECON | Unknown | | + + + + + Care Team Providers + +------+ + | Care Client Delivery Manager Name | Role | Phone | [...] | | | | | | | [place] for | | | | | | | Health and | | | | | | | Healing, | | | | | | | Building [address] | | | | | | | [place], [place] | | | | | | | [address] | | | | | | | Phone: | | | | | | | [phone] | | | | | | | Fax: | | | | | | | [phone] | +--------+--------+ + + + + Encounter Details +--------+---------+ + + + | Date | Type | Department | Care Team | Description | +--------+---------+ + + + | 06/16/ | Office | Digestive Health | Olga Lidia Montanez, | Morbid obesity (HCC) | | 2012 | Visit | Center at [facility] [address] | [address] [facility] | (Primary Dx); Type | | | | [address] [facility] | [facility] [address] | 2 diabetes mellitus | | | | [facility] and | [place], [place] | (HCC) | | | | [place] [address] | [address] | | | | | [place], [place] | | | | | | [address] | | | | | | [phone] | | | +--------+---------+ + + + [...] of Visit: 10:06 to 10:32 (26 minutes vsvd-pb-qfxz with patient & friend) SUBJECTIVE: Is surprised she has gained weight; is disappointed. Still following her usual meal plan. H as d/c'd diet soda. Still struggling w/ eating out of boredom - choosing 100 kcal snacks but having ~3 of them at a time. Not as much emotional eating lately. Has been keeping food log s (on paper) - avg 7410-1728 kcal/d. Trying to increase activity. B: Atkins [...] provided. [address]ga L[address] RD, LD Pager [phone] documented in this en counter Plan of Treatment +--------+---------+ + + + | Date | Type | Specialty | Care Team | Description | +--------+---------+ + + + | 06/08/ | Office | Plastic Surgery | Antoinette Hale, | | | 2019 | Visit | | [address] [facility] | | | | | | [address] | | | | | | [place], [place] | | | | | | [address] | | | | | | [phone] | | | | | | | | +--------+---------+ + + + documented as of this encounter Procedures + +--------+ + + + | Procedure Name | Priori | Date/Time | Associated Diagnosis | Comments | | | ty | | | | + +--------+ + + + | ID MNT RE-ASSESSMNT | Routin | 06/16/2013 | Morbid obesity | | | X15MIN | e | 1:32 PM | ([facility]) Type 2 | | | | | [...]
--- OUTSIDE RECORDS SUMMARY | ~2020-04-17 | XMS | Encounter Summary ---
Demographics + + + | Address | [address] | | | [place] [address] | + + + | Home Phone [...] [place], [place] | | | | | [address] | | + + + + + | Ellie Vang | ECON | Unknown | | + + + + + Care Team Providers + +------+ + | Care Custom Protection Officer Name | Role | Phone | [...] | 2018 | Visit | Center at [facility] [address] | MD [address] | surgery (Primary | | | | [address] | [place], [place] | Dx); History of | | | | for Health and | [address] | Frandy-en-Y gastric | | | | Healing, Building 2 | [phone] | bypass | | | | [place], [place] | | | | | | [address] | | | | | | [phone] | | | +--------+---------+ + + + [...] to the healing stomach. There are also k 9 handler/ deputy complications of poor wound healing and gastric u lcers. These ulcers are started by smoking or using other nicotine products (vapor cigarett es etc). Gastric bypass patients should also avoid NSAIDS(ibuprofen, advil, motrin, naprosyn/naproxe n/aleve) to prevent gastric/marginal ulcers. Please visit with our Grocery Clerk Checking (RD) for instructions about your Bariatric diet, assistance with calorie counts, tips and tricks for working with your diet restrictions, an d recipes after bariatric surgery. Daily yogurt; even just 1 tablespoon twice a day will provide enough probiotics to optimize digestion. Try to use a high-quality, probiotic-dense yogurt (eg Zaria's, Leonides, Stacie reeves Kefir, Workers Compensation Examiner [employer] Yogurt). Remember to chew your food well, [...] protein daily, and 64 oz water daily. Forestry Fire Aid just changed diet to he lp her [...] rhinitis Anemia Anxiety Bipolar disorder ([facility]) Chronic wound infection of abdomen [...] [facility]) TIA (transient ischemic attack) Tinea [...] by communicating with her mother - Follow Forestry Fire Aid recommendations to help with nausea (decrease volume, [...] Anisa Dillon MD PGY-1, Red Surgery Pager: [phone] documented in this encounter Plan of Treatment +--------+---------+ + + + | Date | Type | Specialty | Care Team | Description | +--------+---------+ + + + | 06/08/ | Office | Plastic Surgery | Antoinette Hale, | | | 2019 | Visit | | [address] | | | | | | [address] | | | | | | [place], [place] | | | | | | [address] | | | | | | [phone] | | | | | | | | +--------+---------+ + + + documented as of this encounter Visit Diagnoses + + | Diagnosis | + + | Aftercare following surgery - Primary Encounter for other specified aftercare | + + | History of Frandy-en-Y gastric bypass Bariatric surgery status | + + documented in this encounter
--- OUTSIDE RECORDS SUMMARY | ~2020-04-17 | XMS | Encounter Summary ---
Demographics + + + | Address | [address] | | | [place] [address] | + + + | Home Phone [...] [place], [place] | | | | | [address] | | + + + + + | Ellie Vang | ECON | Unknown | | + + + + + Care Team Providers + +------+ + | Care Website/Blog Editor Name | Role | Phone | [...] | | | | | | [address] [place], [place] | | | | | | [address] | | | | | | [phone] | | | +--------+ + + + [...] Rd | | | | | | [place], [place] | | | | | | [address] | | | | | | [phone] | | | | | | | | +--------+---------+ + + + documented as of this encounter Visit Diagnoses Not on filedocumented in this encounter"
--- OUTSIDE RECORDS SUMMARY | ~2020-04-17 | XMS | Encounter Summary ---
Demographics + + + | Address | [address] | | | [place] [address] | + + + | Home Phone [...] Organization | [facility] [...] Team Providers + +------+ + | Care College Coach Name | Role | Phone | + +------+ + PCP | Unavailable | + +------+ + Encounter Details +--------+ + + + + | Date | Type | Department | Care Team | Description | +--------+ + + + + | 04/14/ | Orders Only | [facility] | Conversion | | | 2015 | | NEPHROLOGY [place] | Transaction, | | | | | [address] | Provider Unknown | | | | | [address] [place], [place] | | | | | | [address] | (Fax) | | | | | [phone] | | | +--------+ + + + [...] Procedure | Neurology | Camille De La Pza, | | | 2019 | visit | | MD [address] | | | | | | [address] | | | | | | [place] [address] | | | | | | [phone] | | | | | | | [...] - 1.030 | EXTERNAL | | | [place], | | | LAB | | | [...]
--- OUTSIDE RECORDS SUMMARY | ~2020-04-17 | XMS | Encounter Summary ---
Demographics + + + | Address | [address] | | | [place] [address] | + + + | Home Phone [...] [place], [place] | | | | | [address] | | + + + + + | Ellie Vang | ECON | Unknown | | + + + + + Care Team Providers + +------+ + | Care Connie Cleaner Name | Role | Phone | [...] | [facility] | | | with ROBOTIC MAINTENANCE TECHNICIAN | | hypertension | [address] | | | | | Right | [address] | [address] | | | | | heart | [place], [place] | [place] for | | | | | failure | [address] | Health and | | | | | ([facility]) Type | Phone: | Healing, | | | | | 2 diabetes | [phone] | Building [address] | | | | | mellitus | Fax: | [place], [place] | | | | | without | [phone] | [address] | | | | | complication | | Phone: | | | | | , with | | [phone] | | | | | long-term | | Fax: | | | | | current use | | [phone] | | | | | of insulin [...] at [facility] [address] | [address] | BMI of 70 and over, | | | | [address] | [place], [place] | adult ([facility]ERLY [facility]) (Primary | | | | for Health and | [address] | Dx); Diabetes | | | | Healing, Building 2 | | mellitus type 2 | | | | [place], [place] | | without retinopathy | | | | [address] | | ([facility]); | | | | | | Intertriginous | | | | | | candidiasis; PCOS | | | | | | (polycystic ovarian | | | | | | syndrome); AMARA | | | | | | treated with BiPAP; | | | | | | Chronic diastolic | | | | | | heart failure ([facility]); | | | | | [...] 10/30/2017 10:00 AM PDTPlease visit with our [facility] Principal Accounts Clerk (RD) for instructions about your Bariatric diet, assistance with calorie c ounts, tips and tricks for working with your diet restrictions, and recipes after bariatric surgery. Daily yogurt; even just 1 tablespoon twice a day will provide enough probiotics to optimize digestion. Try to use a high-quality, probiotic-dense yogurt (eg Zaria's, Kobifield, Lif eway Kefir, Veterinary Surgery Technician DukeSocii Tajik Yogurt). Remember to chew your food well, [...] to the healing stomach. There are also signal inspector complications of poor wound healing and [...] Dr. Andie Biran Incisional hernia repair 03[facility]2015 [facility] [...] 1 tablet by mouth once daily CALCIUM CRB&[id number]-[id number]-GENIS ORAL Take 2 tablets by mouth two [...] History Narrative Updated 11/09/15 She lives in [place] with her mother and her sister (also her caregiver) lives in an artment/duplex below. She has 2 grandchildren (age 4 and 7) who live with her daughter and son-in-law Her boyfriend lives in [place] HFpEF, DM2, HTN, Sleep Apnea (unable to [...] program here and refer her to our engineering test specialist who also has expertise in [...] a 4-5% rate of reoperation over the signal inspector (i.e. years), as well as other [...] may approach 5%. We reviewed the [facility] consent form. We discussed that we [...] | | 2019 | Visit | | [address] | | | | | | [address] | | | | | | [place], [place] | | | | | | [address] | | | | | | [phone] | | | | | | | [...] | | | | over, adult ([facility]) | | | [...] | | | | | determined by brick&mobile | | | | | | Visys. See | | | | | | Compliance Statement B: | | | | | | [employer]WangYou/CSPerformed | | | | | | by [employer],[address] | | | | | | Liliana [facility],[place] | | | | | | [address] | | | | | | [phone].Lastlinelab. | | | | | | [facility], Ismael Willis MD, | | | [...] [facility] | [address] | [place], [place] | | | [facility] | | [address] | | + + + + + [...] | | | LABORATORY | | | PITCAIRN ISLANDER | | | SERVICES, | | [...] + + | [facility] | [address] | [place] [address] | | | SERVICES, CORE | PARK [...] [facility] | [address] | [place] [address] | | | SERVICES, CORE | PARK [...] [facility] | [address] | [place] [address] | | | SERVICES, CORE | PARK [...] [facility] | [address] | [place] [address] | | | SERVICES, CORE | CLARENCE [...] + + | New Reference Range effective 07-16-. | [facility] | | | LABORATORY | | | SERVICES, CORE | + + + + + + + + | Performing | Address | City/State/Zipcode | Phone Number | | Organization | | | | + + + + + | [facility] | [address] | [place] [address] | | | SERVICES, CORE | CLARENCE [...] [facility] | [address] | [place] [address] | | | SERVICES, CORE | [address] | | | + + + + + documented in this encounter Visit Diagnoses + + | Diagnosis | + + | Morbid obesity with BMI of 70 and over, adult ([facility]) - Primary | + + | Diabetes mellitus type 2 without retinopathy ([facility]) Type II or [...]
--- OUTSIDE RECORDS SUMMARY | ~2020-04-17 | XMS | Encounter Summary ---
Demographics + + + | Address | [address] | | | [place] [address] | + + + | Home Phone [...] [place], [place] | | | | | [address] | | + + + + + | Ellie Vang | ECON | Unknown | | + + + + + Care Team Providers + +------+ + | Care Furniture Assembler And Installer Name | Role | Phone | [...] | | [address] | [place], [place] | | | | | [facility] | [address] | | | | | and [address], | [phone] | | | | | Building [address] | | | | | | [place], [place] | | | | | | [address] | | | | | | [phone] | | | +--------+--------+ + + + [...] Rd | | | | | | [place], [place] | | | | | | [address] | | | | | | [phone] | | | | | | | | +--------+---------+ + + + documented as of this encounter Visit Diagnoses Not on filedocumented in this encounter"
--- OUTSIDE RECORDS SUMMARY | ~2020-04-17 | XMS | Encounter Summary ---
Demographics + + + | Address | [address] | | | [place] [address] | + + + | Home Phone [...] [place], [place] | | | | | [address] | | + + + + + [...] | | gastric | [address] | [place] | | | | | bypass | [place], [place] | Pavilion, [address] | | | | | Ventral | [address] | floor | | | | | hernia | Phone: | [place], [place] | | | | | without | [phone] | [address] | | | | | obstruction | Fax: | Phone: | | | | | or gangrene | [phone] | [phone] | | | | | Mixed | | Fax: | | | | | hyperlipidem | | [phone] | | | | | ia Diabetes [...] | 2018 | Visit | Center at [facility] [address] | ACNP [address] | gastric bypass | | | | [address] | Ave [facility] [place] | (Primary Dx); | | | | for Health and | [address] | Ventral hernia | | | | Healing, Building 2 | [phone] | without obstruction | | | | [place], [place] | | or gangrene; Mixed | | | | [address] | | hyperlipidemia; | | | | [...] to POC and will call or send SimpleLegal message if any issues. documented in this [...] tongue once daily., Disp: , Rfl: CALCIUM CRB&CED-Y7-CKT26-GENIS ORAL, Take 2 tablets by mouth two [...] less 8 [facility] Social History Social History Marital status: Single Spouse name: N/A Number of children: 1 Years of education: N/A Occupational History disabled None Social History Main Topics Smoking status: Former Smoker Smokeless tobacco: Never Used Alcohol use No Drug use: No Sexual activity: Not on file Social History Narrative Updated 11/09/15 She lives in [place] with her mother and her sister (also her caregiver) lives in an [facility] rtment/duplex below. She has 2 grandchildren (age 4 and 7) who live with her daughter and son-in-law Her boyfriend lives in [place] HFpEF, DM2, HTN, Sleep Apnea (unable to tolerate CPAP), Hypothyroidism, Severe Obesity ([facility] max weight 495 lbs) Last [...] here and refer her to our medical office specialist who also has expertise in physical [...] and documenting after this visit. Ronna SANTOSP LEAD REFINERY SUPERVISOR Bariatric Surgery Nurse Practitioner [facility] | [address] | [place], [place] | [address] | documented in this e ncounter Plan of Treatment +--------+---------+ + + + | Date | Type | Specialty | Care Team | Description | +--------+---------+ + + + | 06/08/ | Office | Plastic Surgery | Antoinette Hale, | | | 2019 | Visit | | [address] [facility] | | | | | | [address] | | | | | | [place], [place] | | | | | | [address] | | | | | | [phone] | | | | | | | | +--------+---------+ + + + documented as of this encounter Results X-RAY MIRIAM CASTELLON (06/07/2018 9:47 AM PST) + + | Specimen | + + | | + + + + + | Narrative | Performed At | + + + | EXAM: Esophagram with delinquent account clerk radiograph HISTORY: RYGB 03/01/2018, | [facility] | | vomiting/pain ever since COMPARISON: 04/27/2018 CT TECHNIQUE: | RADIOLOGY VOICE | | Rn Ante Partum radiograph was performed. Single contrast exam of the esophagus, | RECOGNITION 2 | | gastric pouch, and gastrojejunostomy in upright positioning. | | | Radiation dose reduction technique was maximized where appropriate | | | using pulsed fluoroscopy and fluoro-store images. Fluoro Time 57 | | | second(s) FINDINGS: Rn Ante Partum shows stone in the upper pole of [...] AM PST EXAM: Esophagram | | with delinquent account clerk radiograph HISTORY: RYGB 03/01/2018, vomiting/pain ever since COMPARISON: | | 04/27/2018 CT TECHNIQUE: Rn Ante Partum radiograph was performed. Single contrast exam of the | | esophagus, gastric pouch, and gastrojejunostomy in upright positioning. Radiation dose | | reduction technique was maximized where appropriate using pulsed fluoroscopy and | | fluoro-store images. Fluoro Time 57 second(s) FINDINGS:Rn Ante Partum shows stone in the upper | | [...] the report as now presented. Final signature: Zahere [place] MD | | 06/07/2018 11:17 AM [...] + + | [facility] [employer] | [address] | [place] [address] | | | SERVICES, CORE | CLARENCE [...] | + + + + + | [facility] [employer] | [address] | [place] [address] | | | SERVICES, SPECIAL | PARK [...] B: | | | | | | FinalCAD.BabyBus/CSPerformed | | | | | | by [employer],[address] | | | | | | Liliana Martinez, [facility] [place] | | | | | | [address] | | | | | | [phone].FinalCAD. | | | | | | blue [...] [facility] | [address] | [place], [place] | | | [facility] | | [address] | | + + + + + [...] [facility] | [address] | [place] [address] | | | SERVICES, CORE | PARK [...] [facility] | [address] | [place] [address] | | | SERVICES, CORE | PARK [...] HEALTH CENTER | [address] | [place] [address] | | | SERVICES, CORE | CLARENCE [...] [facility] | [address] | [place] [address] | | | SERVICES, LYDIA | PARK [...] [facility] | [address] | [place] [address] | | | SERVICES, CORE | PARK [...] + + + + + | [facility] | [address] | [place] [address] | | | SERVICES, LYDIA | CLARENCE [...]
--- OUTSIDE RECORDS SUMMARY | ~2020-04-17 | XMS | Encounter Summary ---
Demographics + + + | Address | [address] | | | [place] [address] | + + + | Home Phone [...] [place], [place] | | | | | [address] | | + + + + + | Ellie Vang | ECON | Unknown | | + + + + + Care Team Providers + +------+ + | Care Video Effects Editor Name | Role | Phone | [...] Preventive at [facility] | MD [address] | | | | | [address] | [place], [place] | | | | | [facility] | [address] | | | | | and [address], | [phone] | | | | | Building [address] | | | | | | [facility] [place] | | | | | | [address] | | | | | | [phone] | | | +--------+ + + + [...] | | 2019 | Visit | | [address] [facility] | | | | | | [address] | | | | | | [place], [place] | | | | | | [address] | | | | | | [phone] | | | | | | | | +--------+---------+ + + + documented as of this encounter Visit Diagnoses Not on filedocumented in this encounter"
--- OUTSIDE RECORDS SUMMARY | ~2020-04-17 | XMS | Encounter Summary ---
Demographics + + + | Address | [address] | | | [place] [address] | + + + | Home Phone [...] Team Providers + +------+ + | Care Pediatrician/Medical Doctor Name | Role | Phone | [...] + + | 02/12/ | Telephone | [facility] | Camille De La Paz, | Other (Medication) | | 2020 | | NEUROLOGY [address] | | | [address] | [facility] [address] | | | | | [place], [place] | [place] [address] | | | | | [address] | [phone] | | | | | [phone] | | | +--------+ + + + [...] other symptoms. Please call Elzbieta back at [phone] If this is a symptom based call, was patient offered triage? Not Applicable If this is a symptom based call and you were unable to immediately transfer the call to a romeo ellis agriculture laborer was caller made aware that if at [...] | 04/18/ | Procedure | Neurology | aCmille De La Paz, | | | 2019 | visit | | MD Saumya MOE | | | | | | [address] | | | | | | [place] [address] | | | | | | [phone] | | | | | | | | +--------+ + + + + documented as of this encounter Visit Diagnoses Not on filedocumented in this encounter
--- OUTSIDE RECORDS SUMMARY | ~2020-04-17 | XMS | Encounter Summary ---
Demographics + + + | Address | [address] | | | [place] [address] | + + + | Home Phone [...] [place], [place] | | | | | [address] | | + + + + + | Ellie Vang | ECON | Unknown | | + + + + + Care Team Providers + +------+ + | Care Motion Picture Set Grip Name | Role | Phone | + [...] + + | 01/01/ | Emergency | [facility] Emergency | Fide Hester | | | 2017 - | | Department [address] | MD Raza [address] [facility] | | | | | [address] | [address] | | | 01/02/ | | [facility] | [place], [place] | | | 2017 | | [place], [place] | [address] | | | | | [address] | [phone] | | | | | [phone] | | | | | | | Jaime Yee, | | | | | | ANP [address] | | | | | | [facility] [address] | | | | | | [place], [place] | | | | | | [address] | | | | | | [phone] | | | | | | | | | | | | Sheree Aguiar MD | | | | | | [address] | | | | | | [place], [place] | | | | | | [address] | | | | | | | | | | | | Felix Cardoza, | | | | | | BUILDING ATTENDANT [address] | | | | | | [facility] [address] | | | | | | [place], [place] | | | | | | [address] | | | | | | [phone] | | | | | | | [...] ready for discharge. Thank you for choosing [facility] for your healthcare needs. Abdominal Hernia Repair: [...] living will and a durable power of consumer attorney for health care. Bring a copy [...] apply lotions, perfume s, deodorants, or nail swiss. Do not shave the surgical site yourself. [...] driving, and getting back to your [facility] routine. When should you call [...] Repair: Before Your Surgery", log into your [employer] a ccount at [email or web address]. You can enter U288 in the "Health Library" search box . Not on aisle411hart? Review the aisle411hart section of your After Visit Summary for directions on anjel w to sign up. Current as of: March 04, 2016 Content Version: 11.2 8156-0322 Pass[employer]. Care instructions adapted under license by [facility] [place]. If you have questions about a medical condition or this instr uction, always ask your healthcare professional. [employer] disclaims any curly anty or liability for [...] changes in the way you eat. An pcmh specialist to help you be more active [...] Prepare for Weight-Loss Surgery", log into your [employer] account at [email or web address]. You can enter C413 in the "TrekCafe" s earch box. Not on [employer]? Review the aisle411hart section of your After Visit Summary for directions on anjel aguero to sign up. Current as of: May 08, 2016 Content Version: 11.20055975-5174 Passman. Care instructions adapted under license by [facility] [place]. If you have questions about a medical condition or this instr uction, always ask your healthcare professional. [employer] disclaims any curly anty or liability for [...] | | 0 | | | | [id number]&CIW-I0-AQN32-GEN | mouth two times | | | [...] Ball MD - 01/02/2017 7:49 AM PDT [facility] [place] DEPARTMENT OF SURGERY EMERGENCY GENERAL SURGERY Division [...] wall hernias, laci hobbs was flown from [place] with abdominal pain from a recurrent, reducible [...] uss with Dr. Moore. Mary Ball MD [id number] [facility] [place] A [address] [facility] [place] [facility] documented in this en counter H&P Notes [...] depression and bipolar disorder, who presented to [facility] ED for evaluation of acute on chronic abdominal pain. The pain was sharp, constant, and fo olga lidia at ventral hernia. The pain gradually worsened on Thursday, 12/30, then yesterday (12/31) salma denly and dramatically worsened at about 5 p.m. She initially presented to ED in [place], [place] last night at about 9 p.m. She could not keep down foods, vomited repeatedly. CT scan at [place] did not indicate incarcerated hernia but she [...] No vomiting since s he arrived at [facility]. In the ED Obs Unit she has [...] is part of bariatric program here at [facility]. She denies any shortness of breath, chest [...] hx of GI cancer. HCG negative in [place], has Nexplanon for contracepti on. Currently menstruating. [...] Dr. Andie Brian Incisional hernia repair 03/01/2015 [facility]/ Dr. Cantu. Primary fascial closure and scar [...] 81 mg by mouth once daily. CALCIUM CRB&RHQ-R8-SAA06-GENIS ORAL Take 2 tablets by mouth two [...] History Narrative Updated 11/09/15 She lives in [place] with her mother and her sister (also her caregiver) lives in an apa rtment/duplex below. She has 2 grandchildren (age 4 and 7) who live with her daughter and son-in-law Her boyfriend lives in [place] FAMILY HISTORY: ROS: Unchanged from recent prior [...] to the ED as a transfer from [place] with concern for bowel obstruction and/or incarcerated [...] Pain HPI: Ms. Romero was flown from [place] for abdominal pain in the setting of [...] once daily., Disp : , Rfl: CALCIUM CRB&QEQ-L7-GUC26-GENIS ORAL, Take 2 tablets by mouth two [...] Dr. Andie Brian Incisional hernia repair 03/01/2015 [facility]/ Dr. Cantu. Primary fascial closure and scar [...] Moore. Mary Ball MD General Surgery PGY1 [id number] Patient with ongoing pain. Still nontoxic appearing. Continue conservative management. Admi t EGS for obs. I saw and evaluated the patient. I agree with the findings and the plan of care as dequan han in the resident s note. Cande Moore MD [facility] EMERGENCY DEPARTMENT [address] [place] [address] documented in this en counter ED Notes Luz Maria Strickland RN - 01/02/2017 11:29 AM PDTRN Discharge Note: Condition at time of discharge: Patient A&O x4, vital signs stable, appears in no acute di stress and pain reported as tolerable. Patient [facility]. Discharge instructions: Patient provided discharge [...] 01/02/2017 11:25 AM PDTMedical transport here to pharmacy picking technician patient. Luz Maria Nieto RN - 01/02/2017 [...] patient appropriate technique. Patient is working with [facility] to prepare of gastric intervention. General [...] 0.91 0.60 - 1.10 mg/dL EGFR - BARBADIAN >60 >60 mL/min EGFR NON -BARBADIAN >60 >60 mL/min SODIUM, PLASMA (LAB) 145 [...] 0.81 0.60 - 1.10 mg/dL EGFR - BARBADIAN >60 >60 mL/min EGFR NON -BARBADIAN >60 >60 mL/min SODIUM, PLASMA (LAB) 142 [...] EXCHANGE Result Value Ref Range DELTA PID [id number] Luz Maria Nieto R N - 01/02/2017 [...] given to KELSIE Loera.Electronically signed by Lupis Echvearria, KELSIE at 7 7:32 AM Lupis Borden RN - 01/02/2017 6:11 AM PDTED Nursing Handoff Report Primary focus of stay: Incarcerated hernia, referral from [facility] in [place]. Pertinent physical findings (Focused assessment, Pain/discomfort, Neuro, [...] focus of stay: incarcerated hernia, referral from [facility] in [place] Pertinent physical findings (Focused assessment, Pain/discomfort, Neuro, [...] she treats with goldbond medicated powder at [facility] e. Open sore noted under right [...] pt has PRN 0.5-1 mg dilaudid available [id number], has been requiring 1 mg dose at [...] to the ED as a transfer from [place] with concern for bowel obstruction and/or incarcerated [...] events Care signed out to the oncoming GENERAL EDUCATION PROFESSOR (Luc/Joselito) Leslie Deleon PA-C eny Diamond RN [...] Currently menstruating. Seen in emergency department in [place], where CT scan of her abdomen was [...] Dr. Andie Brian Incisional hernia repair 03/01/2015 [facility]/ Dr. Cantu. Primary fascial closure and scar excision Medications Prior to Admission Medications Prescriptions Last Dose Informant Patient Reported? Taking? ALPRAZolam 1 mg oral tablet Yes No Sig: Take 1 mg by mouth three times daily as needed for anxiety. CALCIUM CRB&AQC-T8-MNI62-GENIS ORAL Yes No Sig: Take 2 tablets [...] with long-term current use of insulin ([facility]) E66.01 Morbid obesity, unspecified obesity type PLAN, [...] to ED on referral from [facility] for an incarcerated hernia. Pt reports pain [...] RN - 01/01/2017 5:24 AM KELSIE Mcgrath [place] ER Abdominal pain Hernia surgery last year which came back very soon after Presented today with abdominal pain, Nausea and vomiting. CT scan: 2 hernias shown 5ft 2 in 385lbs 4mg Morphine IV x 3 22G IV Left Hand Charley CARVAJAL, Juventino - Amanda 01/01/2017 4:19 AM PDTEmergency Medicine Transfer Note 41 year old female presenting to [place] emergency department with Abd pain and vomiting [...] 8:30 AM PDTTeaching note not neede d. [facility] Sharon diazTerri - 01/01/2017 8:05 AM PDTLF GR: no changes, bp 101/55, hr 100, SAT 94% ra. [facility] Louise Eileen veritoTerri horton - 01/01/2017 7:12 AM PDTPer Monica at dispatch FW has landed in [place]. ETA to [facility] by GR [id number] Alexia Grissom - 01/01/2017 4:35 AM PDTReferring advised -FW [facility] at [facility] in about 30 mins to pharmacy picking technician the pt. 17 4:[facility] Alexia Neal - 01/01/2017 4:23 AM PDTED charge notified an d AOD/Bed Mgr paged. [facility] Alexia Oconnell - 01/01/2017 4:13 AM PDTDr. Rocha connected with Dr. Plunkett, P t wgt 174K, came to referring c/o severe abd pain x 1 day, vomited about 4 times, pt describ ed pain as hernia pain, had been dx'd with hernia in 2015 and had one corrected at [facility], pt is scheduled to see bariatric surgery [...] by Alexia Neal at 02/2017 4:23 [facility] Alexia Mckeon - 01/01/2017 4:[address] [...] [address] | | | | | | [place], [place] | | | | | | [address] | | | | | | [phone] | | | | | | | [...] +--------+ + + + | BG-VALERIE BENZ ISBRUCET | Urgent | 01/01/2017 | | Results [...] MARQU[facility] | [address] | [place], [place] | | | JUSTINE DAWN OF CARE | [address] | [address] | | | TESTS | | | [...] + + | [facility] | [address] [facility] | [place] [address] | | | CLAIRE, LYDIA | [address] [...] MARQUAM | [address] | [place], [place] | | | HILL, POINT OF CARE | [address] | [address] | | | TESTS | | | [...] [facility] | [address] | [place] [address] | | | SERVICES, CORE | [address] [...] [facility] | [address] | [place] [address] | | | LYDIA RANGEL | [address] [...] organisms may result in clinically misleading | [facility] | | information due to the low numbers and /or mixture of organisms | | | present. Recollection is suggested if clinically indicated. | | + + + + + + + + | Performing | Address | City/State/Zipcode | Phone Number | | Organization | | | | + + + + + | [facility] | [address] | [place] [address] | | | [facility] | | | | + [...] [facility] | [address] | [place] [address] | | | CLAIRE, LYDIA | [address] | | | + + + + + ED -DEMARPOC (01/01/2017 10:00 AM PDT) + + + [...] | | | TEMP | | | [place] | | | [...] [facility] | [address] | [place], [place] | | | [place] POINT OF CARE | [address] | [address] | | | TESTS | | | [...] [facility] | [address] | [place] [address] | | | CLAIRE, | [address] [...] DIVISION LABORATORY | [address] | [place] [address] | | | SERVICES, | [address] [...] | 8.97 | 3.50 - 10.80 | [facility] | | | COUNT | | K/cu [...] DIVISION LABORATORY | [address] | [place] [address] | | | SERVICES, CORE | [address]ARK [...] valves (2.5 - 3.5) INR APTT | CLAIRE, CORE | | Therapeutic Range: (75 - 120) sec | | | Heparin levels of 0.35 - 0.7 U/mL | | + + + + + + + + | Performing | Address | City/State/Zipcode | Phone Number | | Organization | | | | + + + + + | [facility] | [address] | [place] [address] | | | SERVICES, CORE [...] the MDRD equation recommended by the | [facility] | | National Kidney Disease Education Program. [...] | [facility] | [address] [facility] | [place] [address] | | | SERVICES, LYDIA | [address] | | | + + + + + ED INFORMATION EXCHANGE (01/01/2017 8:22 AM PDT) + + + + + + | Component | Value | Ref Range | Performed | Pathologist | | | | | At | Signature | + + + + + + | DELTA PID | [id number] | | [facility] | | | | [id number] | | MEDICAL | | | | [...] ---- | | | RADHA GOODRICH at [facility] | | | [facility] Unknown Primary Care | | | Unknown - Current Radha Goodrich DO | | | [phone] Primary Care | | | Unknown - Current | | + + + + + + + + | Performing | Address | City/State/Zipcode | Phone Number | | Organization | | | | + + + + + | [facility] | [address] | [place], [place] | [phone] | | TECHNOLOGIES | [address] | [address] | | + + + + + [...] | | | HOURS, First dose on [facility] 01/01/17 | | AM PDT | [...] dose on [facility] 01/01/17 at 2100, | | | [...] | | | DAILY, First dose on [facility] 01/01/17 | | AM PDT | [...] | | | | | [facility] 01/01/17 at 2200, Until | | | | | | | Discontinued | | | | | | + +-------+ + +---+---------+ + +---+ | | | + +---+ | insulin lispro (HUMALOG) | | | injection subcutaneous, FOUR | | | TIMES DAILY, First dose on [facility] | | | 01/01/17 at 2200, Until | | | Discontinued | | + +---+ | | | + +---+ + +-------+ +--------+---+---+ | magnesium oxide (MAG-OX) tablet | Given | 01/03/20 | 400 mg | | | | 400 mg 400 mg, oral, DAILY, | | 17 8:51 | | | | | First dose on [facility] 01/01/17 at 1945, | | AM [...] | | ONCE, 1 dose, [facility] 01/01/17 at 0945 | | AM [...] dose on [facility] 01/01/17 at 2100, | | AM [...]
--- OUTSIDE RECORDS SUMMARY | ~2020-04-17 | XMS | Encounter Summary ---
Demographics + + + | Address | [address] | | | [place] [address] | + + + | Home Phone [...] + | Katalina Padilla | ECON | [address] | | | | | [place], [place] | | | | | [address] | | + + + + + | Ellie Vang | ECON | Unknown | | + + + + + Care Team Providers + +------+ + | Care Spice Cleaner Name | Role | Phone | [...] | Pain | Diagnoses | Analisa Georges Grubber Psych | | | | Management | Morbid | DANIELLE BrunerP | [address] | | | | | obesity with | [address] | | | | | BMI of [address] | [address] | Center for | | | | | and over, | [place], [place] | Health and | | | | | adult (HCC) | [address] | Healing, | | | | | Procedures | Phone: | Building | | | | | CONSULT TO | [phone] | 1,15th Floor | | | | | PAIN | Fax: | [place], [place] | | | | | MANAGEMENT | [phone] | [address] | | | | | [place] | | Phone: | | | | | PSYCHIATRIC | | [phone] | | | | | DIAGNOSTIC | | Fax: | | | | | [place], NO MED | | [phone] | | | | | [facility] [place] [...] | [facility] | | | with COLLECTOR | | hypertension | [address] | [address] | | | | | Right | [address] | [address] | | | | | heart | [place], [place] | [place] for | | | | | failure | [address] | Health and | | | | | ([facility]) Type | Phone: | Healing, | | | | | 2 diabetes | [phone] | Building 2 | | | | | mellitus | Fax: | [place], [place] | | | | | without | [phone] | [address] | | | | | complication | | Phone: | | | | | , with | | [phone] | | | | | long-term | | Fax: | | | | | current use | | [phone] | | | | | of insulin [...] | 2016 | Visit | Center at [facility] [address] | [facility] [address] | BMI of 70 and over, | | | | [address] | [address] [facility] [place] | adult ([facility]) (Primary | | | | for Health and | [address] | Dx); Chronic | | | | Healing, Building 2 | | diastolic heart | | | | [place], [place] | | failure (HCC); | | | | [address] | | Immobility; Severe | | | [...] retinopathy | | | | | | ([facility]); | | | | | [...] encounter Patient Instructions Patient Instructions Shereen Georges [facility] - 02/02/2017 9:00 AM PDTPlan: The [...] to your private appointme nt with the coach driver. These classes will be scheduled apporoximately 1 month apart to allow time for you to put the teaching into action. Please call [phone] + Labs needed: Pre op: drug screen [...] are done + EKG: Please Have your email specialist do the eval and send it to us + Pre-op Psychological Evaluation: Your referral is at [facility], The Pain Management Office will call [...] be safely completed. + Sign up for [employer] so that we can communicate easily back and forth Once the above list is completed and copies have been received by our office, we will submi t for insurance authorization then schedule with the surgeon. KAIN De Dios DNP, SPRAY WORKER Nurse Practitioner for Bariatric Surgery [facility] | [address] | [place], [place] | [address] | documented in this encounter Progress Notes Shereen Georges ACNP - 02/02/2017 9:00 AM PDTFormatting of this note might be different f rom the original. BARIATRIC INITIAL VISIT Provider: Shereen Pinto DNP, ACNP, SPRAY WORKER Referring Provider: Fadi Goodrich DO Reason for [...] t loss. Consults: Cardiology: Dr. Edson Livingston [facility] Plate Mounter: Nickie : [facility] Paula But comes to magen Pilot Plant Supervisor at [facility]: Dr. Zhong for weight loss medication Gnosticism or cultural reason you would refuse blood [...] once daily., Disp : , Rfl: CALCIUM CRB&GTP-X6-ZTX63-GENIS ORAL, Take 2 tablets by mouth two [...] Dr. Andie Brian Incisional hernia repair 03/01/2015 [facility]/ Dr. Cantu. Primary fascial closure and [...] History Narrative Updated 11/09/15 She lives in [place] with her mother and her sister (also her caregiver) lives in an apa rtment/duplex below. She has 2 grandchildren (age 4 and 7) who live with her daughter and son-in-law Her boyfriend lives in [place] Family History Problem Relation Heart Attack Father [...] management, and was referred as well to graduate intern. Plan: Request that her email specialist clear her, and make recommendations 3. Mammogram: [...] to your private appointme nt with the coach driver. These classes will be scheduled apporoximately 1 month apart to allow time for you to put the teaching into action. Please call [phone] + Labs needed: lipids, CBC, CMP, TSH, [...] are done + EKG: Please Have your email specialist do the eval and send it to us + Pre-op Psychological Evaluation: Your referral is at [facility], The Pain Management Office will call [...] be safely completed. + Sign up for [employer] so that we can communicate easily back and forth Once the above list is completed and copies have been received by our office, we will submi t for insurance authorization then schedule with the surgeon. Shereen Pinto DNP, ACNP, SPRAY WORKER Nurse Practitioner for Bariatric Surgery [facility] | [address] | [place], [place] | [address] | documented in this encounter Plan of [...] Rd | | | | | | [place], [place] | | | | | | [address] | | | | | | [phone] | | | | | | | [...]
--- OUTSIDE RECORDS SUMMARY | ~2020-04-17 | XMS | Encounter Summary ---
Demographics + + + | Address | [address] | | | [place] [address] | + + + | Home Phone [...] [place], [place] | | | | | [address] | | + + + + + | Ellie Vang | ECON | Unknown | | + + + + + Care Team Providers + +------+ + | Care Machine Bobbin Winder Name | Role | Phone | [...] Rd | | | | | | [place], [place] | | | | | | [address] | | | | | | [phone] | | | | | | | | +--------+---------+ + + + documented as of this encounter Visit Diagnoses Not on filedocumented in this encounter"
--- OUTSIDE RECORDS SUMMARY | ~2020-04-17 | XMS | Encounter Summary ---
Demographics + + + | Address | [address] | | | [place] [address] | + + + | Home Phone [...] [place], [place] | | | | | [address] | | + + + + + | Ellie Vang | ECON | Unknown | | + + + + + Care Team Providers + +------+ + | Care Turnstile Collector Name | Role | Phone | [...] | HA Roldan, | | | with VICE PRESIDENT CORPORATE COMMUNICATIONS | | hypertension | [address] | GEMA JIANG | | | | | Right | [address] | [address] | | | | | heart | [place], [place] | [facility] | | | | | failure | [address] | [address] [facility] | | | | | ([facility]) Type | Phone: | [place] | | | | | 2 diabetes | [phone] | [address] | | | | | mellitus | Fax: | Phone: | | | | | without | [phone] | [phone] | | | | | complication | | Fax: | | | | | , with | | [phone] | | | | | long-term | | | | | | | current use | | | | | | | of insulin | | | | | | | ([facility]) | | | +--------+ + + + + + Encounter Details +--------+---------+ + + + | Date | Type | Department | Care Team | Description | +--------+---------+ + + + | 05/27/ | Office | Digestive Health | Tejas Cevallos, | History of Frandy-en-Y | | 2018 | Visit | Center at [facility] [address] [facility] | gastric bypass | | | | 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) | | | | [address] | | | | | | [phone] | | | +--------+---------+ + + + [...] Follow-Up Patient referred by: Randell Franks MD [address] [place] [address] Documented time of visit: 2:36pm to 2:49 (13 minutes [id number] with patient) Surgery: Gastric Bypass Date of [...] Medications since surgery: oral - appt with second rigger on the Testing blood glucose: 92 mg/dl [...] beef, cream of wheat, cream of mushroom, thai yogurt Fluid choices: water Supplementation: Flinstones, iron, [...] progression: Begin stage 4 according to [facility] diet guidelines -Provided written & [...] multivitamin & mineral (with iron) supplement, 2/day -8917-4880 mg calcium citrate with vitamin D/day (take in divided doses, not within 2 hour s of multivitamin or iron supplement) -500 mcg/day sublingual B12 supplement (or monthly injections) Continued to reinforce importance of mindful eating. Continue to increase physical activity. Follow up in 3 months or earlier as needed. Tejas Cevallos RD, LD Pager # [phone] signed by Tejas Cevallos RD at 05/27/2018 [...] Rd | | | | | | [place], [place] | | | | | | [address] | | | | | | [phone] | | | | | | | | +--------+---------+ + + + documented as of this encounter Procedures + +--------+ + + + | Procedure Name | Priori | Date/Time | Associated Diagnosis | Comments | | | ty | | | | + +--------+ + + + | SC MNT RE-ASSESSMNT | Routin | 05/27/2018 | [...]
[~2020-04-17 11:06] MED LIST changes: +ATENOLOL100 MG PO; -ATENOLOL50 MG PO; +CHLORPROMAZINE100 MG PO; -CHLORPROMAZINE25 MG PO; -MIRAPEX0.125 MG PO; +MIRAPEX0.25 MG PO; +STOOL SOFTENER100 M1 PO; -STOOL SOFTENER240 MG PO
--- OUTSIDE RECORDS SUMMARY | 2020-04-17 11:08 | XMS ---
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 - Has Care Guidelines - [facility] - 2 Visits in 30 Days CARE PROVIDERS [facility] Community Health Worker 07/03/2019-Current PHONE: [phone] JONES DAVISON [facility] [place] 03/27/2020-Current PHONE: [phone] JONES DAVISON Dentist: Engineer Systems 05/23/2019-Current PHONE: [phone] Rob Tilley Account Engineer/Caption Writer 03/27/2018-Current PHONE: [phone] CONCETTA [place] Internal Medicine: Pulmonary Disease 08/23/2018-Current PHONE: Unknown Guidelines Source: [facility] [place] Guidelines Date: 09/16/2019 Care Coordination: Receives mental health services with [facility].\T\nbsp; Please contact [facility] regarding mental health concerns. [place] Office: [phone], [place] Office: [phone].\T\nbsp; [facility] Crisis: [phone]. Care History Medical/Surgical 03/27/2020 [facility] - [facility]W CONTACTED PATIENT- PATIENT STATED SHE IS STILL EXPERIENCING ABDOMINAL PAIN AND WILL BE CONTACTING DR KISER OFFICE THIS AM. - PATIENT WAS LAST SEEN BY PCP ON 03/07/20 FOR ER FOLLOW UP. - PATIENT STATED ALL ABDOMINAL PAIN/SYMPTOMS WILL BE FOLLOWED UP BY DR WEBBER AND OR DR TIWARI. 03/26/2020 [facility] - DR WEBBER KNOWS THIS PATIENT WELL AND RECOMMENDED PATIENT BE SEEN BY DR TIWARI AT [facility]- A REFERRAL HAS BEEN GENERATED AND CT IMAGES SENT. 12/13/2019 [facility] - PATIENT HAD AN APT WITH DR DAVISON PCP ON 12/09/19 FOR FOLLOW UP TO ED VISIT. - NEXT APT SCHEDULED FOR PATIENT IS IN FEBRUARY 2020. E.D. VISIT COUNT (12 MO.) 2 [facility] [address] [facility] TOTAL 18 NOTE: Visits indicate total known visits. ED/UCC VISIT TRACKING (12 MO.) 04/17/2020 11:06 [facility] [place] TYPE: Emergency COMPLAINT: - POSS BLOOD CLOT 03/26/2020 21:10 [facility] [place] TYPE: Emergency COMPLAINT: - ABDOMINAL PAIN DIAGNOSES: - Epigastric pain - Other alf (current) drug therapy - Allergy status to other antibiotic agents status - Migraine, unspecified, not intractable, without status migrai - Anxiety disorder, unspecified - Allergy status to other drugs, medicaments and biological sub - Epigastric pain - Allergy status to penicillin 03/23/2020 16:14 [facility] [place] TYPE: Emergency COMPLAINT: - ABD PAIN/SWELLING DIAGNOSES: - Separation of muscle (nontraumatic), other site - Migraine, unspecified, not intractable, without status migrai - Anxiety disorder, unspecified - Allergy status to other drugs, medicaments and biological sub - Obesity, unspecified - Other continuous churn buttermaker (current) drug therapy - Unspecified abdominal pain - Allergy status to penicillin - Allergy status to other antibiotic agents status 02/27/2020 15:27 [facility] [place] TYPE: Emergency COMPLAINT: - SOB DIAGNOSES: - Shortness of breath - Allergy status to analgesic agent status - Acute upper respiratory infection, unspecified - Migraine, unspecified, not intractable, without status migrai - Allergy status to other drugs, medicaments and biological sub - Contact with and (suspected) exposure to other viral communic - Other continuous churn buttermaker (current) drug therapy - Allergy status to penicillin - Anxiety disorder, unspecified 12/19/2019 09:57 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 - Ocular pain, right eye - Migraine, unspecified, not intractable, without status migrai - Anxiety disorder, unspecified - Other continuous churn buttermaker (current) drug therapy - Allergy status to other drugs, medicaments and biological sub - Allergy status to penicillin 12/02/2019 12:02 [facility] [place] TYPE: Emergency COMPLAINT: - STOMACH PAIN,BLOODY STOOL DIAGNOSES: - Anxiety disorder, unspecified - Allergy status to other drugs, medicaments and biological sub - Allergy status to other antibiotic agents status - Other alf (current) drug therapy - Hypokalemia - Constipation, unspecified - Unspecified abdominal pain - Migraine, unspecified, not intractable, without status migrai - correction (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 - Allergy status to penicillin 11/13/2019 17:33 [facility] [place] TYPE: Emergency COMPLAINT: - MULTIPLE COMPLAINTS DIAGNOSES: - Viral infection, unspecified - Cough - Other continuous churn buttermaker (current) drug therapy - Anxiety disorder, unspecified - Allergy status to other antibiotic agents status - Allergy status to penicillin - Migraine, unspecified, not intractable, without status migrai 09/12/2019 17:58 [facility] [place] TYPE: Emergency COMPLAINT: - POST OP PAIN DIAGNOSES: - Allergy status to analgesic agent status - Unspecified abdominal pain - Allergy status to penicillin - Other continuous churn buttermaker (current) drug therapy - Anxiety disorder, unspecified - Obesity, unspecified - Other postprocedural complications of skin and subcutaneous t - Allergy status to other drugs, medicaments and biological sub 09/08/2019 18:55 [facility] [place] TYPE: Emergency COMPLAINT: - DIFFICULTY BREATHING DIAGNOSES: - Headache - Other continuous churn buttermaker (current) drug therapy - Personal history of nicotine dependence - Shortness of breath 09/02/2019 21:22 [facility] [place] TYPE: Emergency COMPLAINT: - ABDOMINAL PAIN 08/18/2019 13:47 [facility] TYPE: Emergency DIAGNOSES: [address]. [facility] [address]. Morbid (severe) obesity due to excess calories . Ventral hernia without obstruction or gangrene . 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 - Anxiety disorder, unspecified - Cellulitis of abdominal wall - Acute embolism and thrombosis of deep veins of right upper ex - Nicotine dependence, unspecified, uncomplicated - Migraine, unspecified, not intractable, without status migrai - Unspecified abdominal pain - Allergy status to other drugs, medicaments and biological sub - Other alf (current) drug therapy - Allergy status to penicillin - Obesity, unspecified 06/19/2019 06:34 [facility] [place] TYPE: Emergency COMPLAINT: - ABDOMINAL PAIN/VOMITING DIAGNOSES: - 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 - Personal history [...] drugs, medicaments and biological sub - Other continuous churn buttermaker (current) drug therapy 06/01/2019 13:10 [facility] [place] TYPE: Emergency COMPLAINT: - HEADACHE/VISION ISSUES DIAGNOSES: - Allergy status to penicillin - Anxiety disorder, unspecified - Obesity, unspecified - Migraine, unspecified, not intractable, without status migrai - Other continuous churn buttermaker (current) drug therapy - Allergy status to other drugs, medicaments and biological sub - 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 - Headache - correction (current) use of aspirin 05/23/2019 17:08 [facility] [place] TYPE: Emergency COMPLAINT: - BLOOD CLOT IN ARM DIAGNOSES: - Anxiety disorder, unspecified - Acute embolism and thrombosis of deep veins of right upper ex - Allergy status to penicillin - Other alf (current) drug therapy - Pain in right arm - correction (current) use of aspirin - Allergy status to other drugs, medicaments and biological sub 05/20/2019 10:19 [facility] [place] TYPE: Emergency COMPLAINT: - ABD PAIN, VOMITING DIAGNOSES: - Generalized abdominal pain - marine oil terminal superintendent (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 [id number] [id number]. Bariatric surgery status 70368. Ventral hernia without obstruction or gangrene 50113. Nausea with vomiting, unspecified 84436. Unspecified abdominal pain 48259. Nonspecific mesenteric lymphadenitis 05/10/2019 13:06 [facility] [place] TYPE: Emergency COMPLAINT: - ABD PAIN DIAGNOSES: - Nausea with vomiting, unspecified - Allergy status to other drugs, medicaments and biological sub - Personal history of transient ischemic attack (TIA), and cere - Solitary pulmonary nodule - Other alf (current) drug therapy - Anxiety disorder, unspecified - Allergy status to penicillin - Ventral hernia without obstruction or gangrene - marine oil terminal superintendent (current) use of aspirin - Unspecified abdominal pain - Diarrhea, unspecified INPATIENT VISIT TRACKING (12 MO.) 09/03/2019 02:[address] 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 - Bipolar disorder, unspecified - Personal history of other venous thrombosis and embolism - Anxiety disorder, unspecified - Other chronic pain - Other alf (current) drug therapy - Postprocedural hematoma of a digestive system organ or struct - Other alf (current) drug therapy - Personal history of other venous thrombosis and embolism - Bariatric surgery status - Essential (primary) hypertension - Personal history of transient ischemic attack (TIA), and cere - Obstructive sleep apnea (adult) (pediatric) - Personal history of pulmonary embolism - Migraine, unspecified, not intractable, without status migrai - Bipolar disorder, unspecified - 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 Unspecified abdominal hernia with obstruction, without gangre . Morbid (severe) obesity due to excess calories . Ventral hernia without obstruction or gangrene [email or web address]
[2020-04-17] MEDS ORDERED: ENOXAPARIN120 MG/0.8 SUB-Q (12:45)
[2020-04-17] MEDS ORDERED: CYCLOBENZAPRINE10 MG PO (17:08)
--- NOTE | 2020-04-18 14:58 | EKG ---
[facility] [address] [facility] [address] [place] [address] Signed Normal sinus rhythm When compared with ECG of 27-FEB-2020 15:32, No significant change was found Confirmed by MARU FITZGERALD MD ([id number]) on 04/18/2020 2:58:02 PM Electronically Signed By: MARU FITZGERALD MD 04/18/20 1458 PATIENT NAME: DYLAN ROMERO Electrocardiogram DATE OF : 79 PHYSICIAN: MARU FITZGERALD MD REPORT #: [id number] REPORT IS CONFIDENTIAL AND NOT TO BE RELEASED WITHOUT AUTHORIZATION
[2020-04-19] MEDS ORDERED: MAXALT10 MG PO (14:23)
[2020-04-19] MEDS ORDERED: TOPAMAX100 MG PO (14:23)
[2020-04-19] MEDS ORDERED: IMODIUM A-D2 M2 PO (14:24)
[2020-04-19] MEDS ORDERED: MIDOL CAPLET1 EAC1 PO (14:25)
[2020-04-19] MEDS ORDERED: GAS-X125 MG PO (14:25)
[2020-04-19] MEDS ORDERED: SUDOGEST SINUS1 EACH PO (14:26)
[2020-04-19] MEDS ORDERED: PERCOCET 5-3251 EACH PO (14:27)
== END 2020-04-17 17:34 | disposition home or self-care (01) ==
LOC: ED 11:06
DX: M54.9 Dorsalgia, unspecified (principal); J32.9 Chronic sinusitis, unspecified; E66.9 Obesity, unspecified; G43.909 Migraine, unspecified, not intractable, without status migrainosus; F41.9 Anxiety disorder, unspecified; Z88.8 Allergy status to other drugs, medicaments and biological substances; Z88.0 Allergy status to penicillin; Z88.1 Allergy status to other antibiotic agents; Z88.6 Allergy status to analgesic agent; Z79.899 Other long term (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
CPT/HCPCS: 71260; 80053; 84484; 85025; 85610; 93005; 93010; 99284-25

== ENCOUNTER 2020-07-28 18:23 | Observation (INO) | payer OTHER ==
[~2020-07-28] VITALS: Ht 147.3 cm; Wt 124.8 kg
[~2020-07-28 18:23] MED LIST changes: -ARMOUR THYROID30 MG PO; +CYCLOBENZAPRINE10 MG PO; +ENOXAPARIN120 MG/0.8 SUB-Q; +GAS-X125 MG PO; +IMODIUM A-D2 M2 PO; +MIDOL CAPLET1 EAC1 PO; +MINIPRESS5 MG PO; +MIRAPEX0.125 MG PO; -MIRAPEX0.25 MG PO; +NASAL DECONGEST30 MG PO; +NP THYROID30 MG PO; -PRAZOSIN HCL2 MG PO; -STOOL SOFTENER100 M1 PO; +STOOL SOFTENER100 MG PO
--- OUTSIDE RECORDS SUMMARY | 2020-07-28 18:26 | XMS ---
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 ROMERO Security Dialysis Patient Care Technician Events No recent Security Events currently on file CRITERIA MET - Group Notification - [facility] - Has Care Guidelines - PDMP CARE PROVIDERS [facility] Work[facility] 07/03/2019-Current PHONE: [phone] JONES DAVISON [facility] 03/27/2020-Current PHONE: [phone] JONES DAVISON Dentist: Purchasing [employer] 05/23/2019-Current PHONE: [phone] Rob Tilley Pharmacists/Concrete Boom Operator 03/27/2018-Current PHONE: [phone] [facility] Internal Medicine: Pulmonary Disease 08/23/2018-Current PHONE: Unknown Guidelines Source: [facility] - [place] Guidelines Date: 09/16/2019 Care Coordination: Receives mental health services with [facility].\T\nbsp; Please contact [facility] regarding mental health concerns. [place] Office: , [place] Office: [phone].\T\nbsp; [facility] Crisis: [phone]. Care History Medical/Surgical 03/27/2020 [facility] - CHW CONTACTED PATIENT- PATIENT STATED SHE IS STILL EXPERIENCING ABDOMINAL PAIN AND WILL BE CONTACTING DR KISER OFFICE THIS AM. - PATIENT WAS LAST SEEN BY PCP ON 03/07/20 FOR ER FOLLOW UP. - PATIENT STATED ALL ABDOMINAL PAIN/SYMPTOMS WILL BE FOLLOWED UP BY DR WEBBER AND OR DR TIWARI. 03/26/2020 [facility] - DR WEBBER KNOWS THIS PATIENT WELL AND RECOMMENDED PATIENT BE SEEN BY DR TIWARI AT [facility]- A REFERRAL HAS BEEN GENERATED AND CT IMAGES SENT. 12/13/2019 [facility] - PATIENT HAD AN APT WITH DR DAVISON PCP ON 12/09/19 FOR FOLLOW UP TO ED VISIT. - NEXT APT SCHEDULED FOR PATIENT IS IN FEBRUARY 2020. E.D. VISIT COUNT (12 MO.) 1 [facility] [address] [facility] [address] [facility] TOTAL 12 NOTE: Visits indicate total known visits. ED/UCC VISIT TRACKING (12 MO.) 07/28/2020 18:24 [facility] [place] TYPE: Emergency COMPLAINT: - DIZZINESS 04/17/2020 11:06 [facility] [place] TYPE: Emergency COMPLAINT: - POSS BLOOD CLOT DIAGNOSES: - Allergy status to other antibiotic agents - Allergy status to other drugs, medicaments and biological substances - Other termite inspector (current) drug therapy - Allergy status to analgesic agent - Anxiety disorder, unspecified - Migraine, unspecified, not intractable, without status migrainosus - Obesity, unspecified - Dorsalgia, unspecified - Allergy status to penicillin - Chronic sinusitis, unspecified 03/26/2020 21:10 [facility] [place] TYPE: Emergency COMPLAINT: - ABDOMINAL PAIN DIAGNOSES: - Epigastric pain - Other senior care (current) drug therapy - Allergy status to other antibiotic agents - Migraine, unspecified, not intractable, without status migrainosus - Anxiety disorder, unspecified - Allergy status to other drugs, medicaments and biological substances - Epigastric pain - Allergy status to penicillin [facility]23[facility]2020 [facility] COMPLAINT: - ABD PAIN/SWELLING DIAGNOSES: - Separation of muscle (nontraumatic), other site - Migraine, unspecified, not intractable, without status migrainosus - Anxiety disorder, unspecified - Allergy status to other drugs, medicaments and biological substances - Obesity, unspecified - Other senior care (current) drug therapy - Unspecified abdominal pain - Allergy status to penicillin - Allergy status to other antibiotic agents 02/27/2020 15:[address] [facility] [place] TYPE: Emergency COMPLAINT: - SOB DIAGNOSES: - Shortness of breath - Allergy status to analgesic agent - Acute upper respiratory infection, unspecified - Migraine, unspecified, not intractable, without status migrainosus - Allergy status to other drugs, medicaments and biological substances - Contact with and (suspected) exposure to other viral communicable diseases - Other senior care (current) drug therapy - Allergy status to penicillin - Anxiety disorder, unspecified 12/19/2019 09:57 [facility] [place] TYPE: Emergency COMPLAINT: - EYE PAIN NON INJURY DIAGNOSES: - Zoster ocular disease, 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 [place] TYPE: Emergency COMPLAINT: - STOMACH PAIN,BLOODY STOOL DIAGNOSES: - Anxiety disorder, unspecified - Allergy status to other drugs, medicaments and biological substances - Allergy status to other antibiotic agents - Other termite inspector (current) drug therapy - Hypokalemia - Constipation, unspecified - Unspecified abdominal pain - Migraine, unspecified, not intractable, without status migrainosus - nursing home (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 - Allergy status to penicillin 11/13/2019 17:33 [facility] [place] TYPE: Emergency COMPLAINT: - MULTIPLE COMPLAINTS DIAGNOSES: - Viral infection, unspecified - Cough - Other termite inspector (current) drug therapy - Anxiety disorder, unspecified - Allergy status to other antibiotic agents - Allergy status to penicillin - Migraine, unspecified, not intractable, without status migrainosus 09/12/2019 17:58 [facility] [place] TYPE: Emergency COMPLAINT: - POST OP PAIN DIAGNOSES: - Allergy status to analgesic agent - Unspecified abdominal pain - Allergy status to penicillin - Other termite inspector (current) drug therapy - Anxiety disorder, unspecified - Obesity, unspecified - Other postprocedural complications of skin and subcutaneous tissue - Allergy status to other drugs, medicaments and biological substances 09/08/2019 18:55 [facility] [place] TYPE: Emergency COMPLAINT: - DIFFICULTY BREATHING DIAGNOSES: - Headache - Other senior care (current) drug therapy - Personal history of nicotine dependence - Shortness of breath 09/02/2019 21:22 [facility] [place] TYPE: Emergency COMPLAINT: - ABDOMINAL PAIN 08/18/2019 13:47 [facility] TYPE: Emergency DIAGNOSES: [id number]. amr [id number]. Morbid (severe) obesity due to excess calories . Ventral hernia without obstruction or gangrene . Unspecified abdominal hernia with obstruction, without gangrene INPATIENT VISIT TRACKING (12 MO.) 09/03/2019 02:24 [facility] [place] TYPE: Medical Surgical COMPLAINT: - POST-OP HEMATOMA DIAGNOSES: - Body mass index [BMI] 50.0-59.9, adult - Personal history of pulmonary embolism - nursing home (current) use of opiate analgesic - Other chronic pain - Allergy status to other drugs, medicaments and biological substances - Anxiety disorder, unspecified - Allergy status to other drugs, medicaments and biological substances - nursing home (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 - Bipolar disorder, unspecified - Personal history of other venous thrombosis and embolism - Anxiety disorder, unspecified - Other chronic pain - Other senior care (current) drug therapy - Postprocedural hematoma of a digestive system organ or structure following a digestive system procedure - Other senior care (current) drug therapy - Personal history of other venous thrombosis and embolism - Bariatric surgery status - Essential (primary) hypertension - Personal history of transient ischemic attack (TIA), and cerebral infarction without residual deficits - Obstructive sleep apnea (adult) (pediatric) - Personal history of pulmonary embolism - Migraine, unspecified, not intractable, without status migrainosus - Bipolar disorder, unspecified - rodent exterminator (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 - Acute posthemorrhagic anemia - Postprocedural hematoma of skin and subcutaneous tissue following other procedure - Acute posthemorrhagic anemia - Obstructive sleep apnea (adult) (pediatric) - Migraine, unspecified, not intractable, without status migrainosus - Allergy status to penicillin - Body mass index [BMI] 50.0-59.9, adult - Allergy status to penicillin - Personal history of transient ischemic attack (TIA), and cerebral infarction without residual deficits - Morbid (severe) obesity due to excess calories - Essential (primary) hypertension - Postprocedural hematoma of skin and subcutaneous tissue following other procedure - Morbid (severe) obesity due to excess calories - nursing home (current) use of opiate analgesic - Bariatric surgery status - Hypokalemia - Hypokalemia 08/18/2019 13:47 [facility] TYPE: Surgery DIAGNOSES: . Unspecified abdominal hernia with obstruction, without gangrene . Morbid (severe) obesity due to excess calories . Ventral hernia without obstruction or gangrene [email or web address]
--- NOTE | 2020-07-28 20:47 | EKG ---
[facility] [address] [facility] [place], [place] [address] Signed Normal sinus rhythm Prolonged QT Abnormal ECG When compared with ECG of 17-APR-2020 15:12, QT has lengthened Confirmed by DUGLAS ALTMAN MD ([id number]) on 07/28/2020 8:46:54 PM Electronically Signed By: DUGLAS ALTMAN MD 07/28/202046 PATIENT NAME: DYLAN ROMERO Electrocardiogram DATE OF : 79 PHYSICIAN: DUGLAS ALTMAN MD REPORT #: [id number] REPORT IS CONFIDENTIAL AND NOT TO BE RELEASED WITHOUT AUTHORIZATION
--- NOTE | 2020-07-28 23:10 | NUR ---
PT ARRIVED VIA STRETCHER AND WAS ON 3L O2 VIA NC. IVF INFUSING INTO R AC. ORDERED MEDICATION ADMINISTERED AND IVF STARTED. PT REPORTED A 9/10 ABDOMINAL PAIN AND WAS GIVEN HER ORDERED PAIN MEDICATION (SEE MAR). PT REPORTS NO SHORTNESS OF BREATH AT THIS TIME AND IS ALERT AND ORIENTED X 4. DURING THIS TIME PT HAD TO VOID AND WAS ABLE TO GET UP AND SHUFFLE TURN TO BEDSIDE COMMODE TO VOID. PT REPORTS SHE HAD SOME MINOR PAIN FROM A KIDNEY STENT PLACED EARLIER LAST MONTH. PT NOW BACK IN BED WITH IVF INFUSING AT ORDERED RATE. PT REPORTS NO FURTHER NEEDS, WILL CONTINUE PLAN OF CARE. CALL LIGHT IN REACH, BED IN LOWEST POSITION.
--- NOTE | 2020-07-29 00:56 | NUR ---
THIS RN IN TO ASSESS PT. AND ADMINISTER MEDICATIONS (SEE MAR). PT SLEEPING AND WOKE TO THIS RN ENTERING THE ROOM. IV INFUSING AT ORDERED RATE, PT ON 3L OXYGEN VIA NC. PT REPORTS NO SOB AND STATES SHE THE PAIN MEDICATION HELPED FROM EARLIER. PT STATES HER PAIN IS A 7/10 BUT STATES ITS FINE AND DENIES WANTING TYLENOL AT THIS TIME. PT REPORTED NO FURTHER NEEDS WHEN ASKED AND WENT BACK TO SLEEP. PT ITRATED UP TO 4L O2 VIA NC DUE TO SPO2 BEING AT 89% WHILE SLEEPING. WILL CONTINUE PLAN OF CARE, CALL LIGHT WITHIN REACH, BED IN LOWEST POSITION.
--- NOTE | 2020-07-29 03:07 | NUR ---
IN TO READJUST BLOOD PRESSURE CUFF ON PT. PT SLEEPING AND WOKE TO ME ENTERING THE ROOM. IV FLUIDS INFUSING ORDERED, PT ON 4L O2 VIA NC. PT STATES SHE HAS ABDOMINAL PAIN 7/10. WHEN OFFERED PRN TYLENOL PT STATES THAT SHE DOES NOT WANT TO TAKE IT. PT IS AWARE THAT HER PERCOCET IS Q6 AND STATED SHE IS WILLING TO WAIT FOR IT. PT REPORTS NO FURTHER NEEDS WHEN ASKED AND STATED SHE WOULD GO BACK TO SLEEP. CALL LIGHT WITHIN REACH, BED IN LOWEST POSITION, WILL CONTINUE PLAN OF CARE.
--- NOTE | 2020-07-29 03:17 | NUR ---
IV PUMP ALARM GOING OFF. PT IV FLUID FINISHED, PT STARTED ON FOLLOWING IVF ORDERED. WILL CONTINUE PLAN OF CARE. PT REPORTS NO FURTHER NEEDS AT THIS TIME AND RETURNED TO SLEEP. CALL LIGHT WITHIN REACH, BED IN LOWEST POSITION.
--- NOTE | 2020-07-29 05:39 | NUR ---
PT LAYING IN BED SLEEPING. IN TO ASSESS PT. PT GIVEN PRN PAIN MEDICATION FOR 7/10 ABDOMINAL PAIN. ORDERED GABAPENTIN ALSO ADMINISTERED PO. PT UP TO [facility] TO VOID. URINE WAS ORANGE IN COLOR (DUE TO MEDICATION TAKEN). DURING THIS TIME PT HR ELEVATED TO THE 100'S, PT STATED SHE FELT DIZZY WHILE GETTING UP BUT STATED IT WASNT " BAD YESTERDAY". PT BACK IN BED ON 4L O2 VIA NC, SPO2 91%. HR NOW AT 99-100 BPM, IV FLUIDS INFUSING ORDERED. PT NOW LAYING IN BED WATCHING TV AND REPORTS NO FURTHER NEEDS. WILL CONTINUE PLAN OF CARE. CALL LIGHT WITHIN REACH, BED IN LOWEST POSITION.
--- NOTE | 2020-07-29 07:30 | NUR ---
REPORT RECIEVED. PATIENT IS SLEEPING WITH HOB ELEVATED. NO DISTRESS NOTED.
--- NOTE | 2020-07-29 08:00 | NUR ---
ASSESSMENT DONE. ORAL CARE PROVIDED. PATIENT DENIES NAUSEA AT THIS TIME. C/O ABD PAIN 12/03. PERCOCET LAST GIVEN AT 0526. PATIENT IS AWARE. UP TO COMMODE TO VOID THEN BACK TO BED W/O INCIDENT. IS STABLE ON FEET. SLIGHT DIZZINESS WITH TRANSFER. HR FROM MID 90'S TO 122. TALKED WITH PATIENT ABOUT POC OF CARE FOR DAY, INDICATES UNDERSTANDING.
[2020-07-29] MEDS ORDERED: LOVENOX120 MG/0.8 SUB-Q (09:00)
[2020-07-29] MEDS ORDERED: FLOMAX0.4 MG PO (09:08)
[2020-07-29] MEDS ORDERED: ALKA-SELTZER G1 EACH PO (09:14)
--- NOTE | 2020-07-29 10:20 | NUR ---
MORPHINE 2 MG IV GIVEN FOR DIFUSE ABD PAIN. RATES 02/02. IVF INFUSING TO LEFT FOOT SITE. NO REDNESS OR SWELLING AT SITE. O2 REMAINS AT 2 L NC.
--- NOTE | 2020-07-29 11:20 | NUR ---
1 UNIT PRBC'S HUNG. INFUSING TO LEFT FOOT. MAINTANCE IV SOLUTION HELD DURING BLOOD INFUSION. PATIENT IS RESTING AT THIS TIME. EDUCATION GIVEN REGARDING S/S OF TANSFUSION REACTION.
--- NOTE | 2020-07-29 13:23 | NUR ---
TO OR VIA [facility] FOR EGD.
--- NOTE | 2020-07-29 13:45 | NUR ---
RETURNED TO ROOM 130. REPORT RECIEVED FROM Grover KUMAR CRNA.
--- NOTE | 2020-07-29 13:55 | NUR ---
1335: THIS RN ASSISTS PT TO CCU RM 130 FROM ENDO ROOM WITH KELSIE RUSSO AND POLINA HENDERSON. PT EASILY WAKES WITH VERBAL STIMULATION, NATURAL AIRWAY WITH NC IN PLACE; RR EVEN AND UNLABORED. KELSIE KNOX IN PT ROOM ON ARRIVAL, FEELS CONFIDENT ASSUMING CARE OF PT AT THIS TIME. PT ABLE TO TRANSFER SELF FROM STRETCHER TO BED WITH NO PROBLEMS.
--- NOTE | 2020-07-29 14:00 | NUR ---
C/O ABD PAIN, REQUESTING PAIN MEDICATION.
--- NOTE | 2020-07-29 14:30 | NUR ---
CBC DRAWN FROM LEFT FOOT IV SITE, 3 ML DISCARD. MORPHINE 4 MG IV GIVEN FOR ABD PAIN. WILL BE TRANSFERRED TO MEDICAL THIS AFTERNOON. TELE #9 APPLIED CONTINUE TO MONITOR QTC INTERVAL. PATIENT MOTHER IS IN ROOM.
--- NOTE | 2020-07-29 15:40 | NUR ---
Patient arrives from CCU via bed to room 124. Patient alert and oriented. Assessment completed. Call light in reach, bed rails up X2. Rating pain 7/10. See EMAR>
--- NOTE | 2020-07-29 19:20 | NUR ---
REPORT RECEIVED FROM MUNIRA IGLESIAS. PT RESTING IN BED, A+O, CALL LIGHT IN REACH, NO NEEDS AT THIS TIME. WILL CONT TO MONITOR
--- NOTE | 2020-07-29 20:20 | NUR ---
V/S AND I&O TAKEN AND RECORDED. ICE WATER REFILLED. APPLE JUICE AND CHICKEN BROTH PROVIDED. PRIMARY KELSIE ROSALES WAS WITH PATIENT.
--- NOTE | 2020-07-29 20:25 | NUR ---
MEDICATIONS ADMINISTERED, ASSESSMENT COMPLETE. PT AMBULATED TO SBA TO HAVE BM. SALINE LOCKED, DRESSING TO R AC IV CHANGED. PT REPORTS 8/10 PAIN, PRN MEDICATIONS ADMINISTERED. 4L [address], TOLERATING WELL. BROTH, JUICE AND WATER PROVIDED. CALL LIGHT IN REACH, NO OTHER NEEDS AT THIS TIME.
--- NOTE | 2020-07-29 22:35 | NUR ---
ROUNDED ON PATIENT, IN BED WITH EYES CLOSED. BREATHING EVEN AND UNLABORED. NC IN PLACE. CALL LIGHT IN REACH, NO APPARENT NEEDS AT THIS TIME.
--- NOTE | 2020-07-30 00:28 | NUR ---
ROUNDED ON PATIENT, HOB ELEVATED, EYES CLOSED, BREATHING EVEN AND UNLABORED. CALL LIGHT WITHIN REACH, WILL CONTINUE TO MONITOR
--- NOTE | 2020-07-30 03:32 | NUR ---
ROUNDED ON PATIENT, RESTING IN BED WITH EYES CLOSED, BREATHING EVEN AND UNLABORED. [address], SALINE LOCKED, NO APPARENT NEEDS AT THIS TIME. WILL CONTINUE TO MONITOR.
--- NOTE | 2020-07-30 05:21 | NUR ---
PT AMBULATED TO BR TO HAVE BM, BLACK STOOL WITH CLOTS NOTED. PT STEADY GAIT. CHICKEN BROTH AND WATER PROVIDED. NO OTHER NEEDS AT THIS TIME, WILL CONTINUE TO MONITOR.
--- NOTE | 2020-07-30 09:24 | NUR ---
PATIENT UP TO BATHROOM AND BACK TO BED, SBA. RN IN ROOM AT THIS TIME. PATIENT WANTS TO SHOWER WHEN HER MOM BRINGS HER CLOTHES. CALL LIGHT IN REACH. NO FURTHER NEEDS AT THIS TIME.
--- NOTE | 2020-07-30 09:27 | NUR ---
PT UP TO RESTROOM WNL. REPORTS WEAKNESS. URINE EXTREMLY DARK IN COLOR. PT EATING BREAKFAST. ASKED FOR ATIVAN FOR ANXIETY. STATES SHE WILL SHOWER WHEN HER MOTHER GETS HERE WITH CLOTHES.
--- NOTE | 2020-07-30 13:00 | NUR ---
PT SITTING UP IN BED AFTER UP TO RESTROOM. BLOOD INFUSING WNL INTO FOOT. CALL LIGHT IN REACH.
[2020-07-30] MEDS ORDERED: SUCRALFATE1 GM PO (14:33)
[2020-07-30] MEDS ORDERED: PROTONIX IV40 MG IV (14:34)
--- NOTE | 2020-07-31 15:36 | PATH ---
[facility] [address] [place], [place] [address] Signed SPECIMEN(S): A GASTRIC POUCH SPECIMEN SOURCE: A. GASTRIC POUCH CLINICAL HISTORY: Gastric bypass. Post: anastanized ulcer, peristomal laceration x 2, acute GI bleed, prolonged QT. MICROSCOPIC DESCRIPTION: Histologic sections of all submitted blocks are examined by light microscopy. These findings, together with the gross examination, support the pathologic diagnosis. FINAL PATHOLOGIC DIAGNOSIS: Gastric pouch: - Gastric fundic-type mucosa with focal slight chronic inflammation. - Negative for evidence of Helicobacter organisms on routine HE stained sections. JVR:[id number] GROSS DESCRIPTION: The specimen, labeled "MB, 1," and designated on the requisition "gastric pouch," is received in formalin and consists of one borden soft tissue fragment that measures 0.6 cm in greatest dimension. The specimen is entirely submitted in cassette (A1). AT (under the direct supervision of a pathologist) The Gross Description was prepared using a voice recognition system. The report was reviewed for accuracy; however, sound-alike word errors, addition and/or deletions may occur. If there is any question about this report, please contact Client Services. PERFORMING LABORATORY: The technical component was performed by [employer], [address] [place] [id number] (Director Of Business Systems: Rubia Villegas MD; CLIA# [id number]). Professional interpretation was performed by [employer], [facility], [address] [place] [address], [place] [address]. Diagnostician: Odin Lehman MD Pathologist Electronically Signed 07/31/2020 PATIENT NAME: DYLAN ROMERO PATHOLOGY DATE OF : 79 REPORT #: [id number] PHYSICIAN: SAYRA PATHOLOGY PCP: JONES DAVISON MD REPORT IS CONFIDENTIAL AND NOT TO BE RELEASED WITHOUT AUTHORIZATION [address] [address] Signed Copies: ~ PATIENT NAME: DYLAN ROMERO PATHOLOGY DATE OF : 79 REPORT #: [id number] PHYSICIAN: [facility] PATH[facility] PCP: JONES DAVISON MD REPORT IS CONFIDENTIAL AND NOT TO BE RELEASED WITHOUT AUTHORIZATION
--- NOTE | 2020-08-02 09:33 | CONS ---
[facility] [address], [place] [address] Signed DATE OF CONSULTATION: 07/29/2020 CONSULTING PHYSICIAN: Morelia Estrada MD. REQUESTING PHYSICIAN: Dr. Aden. PROBLEM: Dark stool and anemia. HISTORY OF PRESENT ILLNESS: This 45-year-old morbidly obese white woman, who is well known to me from the past. In August a year ago, she underwent evacuation of an abdominal wall hematoma following a complex abdominal wall reconstruction by Dr. Woo at [facility]. The patient has a significant past medical history of extreme morbid obesity, having undergone presumably a gastric bypass operation in 2018. This resulted in a 265 pounds weight loss (!). She remains morbidly obese despite such a profound weight loss and currently is still quite obese at 124.8 kg, maintaining the BMI now at 57.5 (previously 89). Of note, she does have chronic midabdominal pain and apparently a recurrent incisional hernia for which operative intervention is anticipated by Dr. Woo once again in the next 2 weeks. She had an episode yesterday of "passing out," was brought to the emergency room and found to have anemia with a hematocrit of 29.9. Quite notably she has been treating a "cold" with [place]au, which has at least 325 mg of aspirin in it. She has been using this multiple times a day. The patient is additionally chronically anticoagulated for history of deep venous thrombosis of the right upper extremity with pulmonary embolism. Her coag studies at admission showed an INR of 1.8, currently 2.0 today. Of note, her rapid COVID test was negative. She complains of vague abdominal pain mostly in the mid abdomen. She denies any dysphagia or hematemesis. She has had dark black stool per rectum. She is said to have had upper endoscopy and colonoscopy in the past few years including upper endoscopy by Dr. Dino Guillory and colonoscopy at [facility]. The patient additionally has had nephrolithiasis and stone extraction and is also known to have history of ureteral stenting. Current status of her ureteral stenting is unknown to me at this moment. Electronically Signed By: MORELIA ESTRADA MD 08/02/20 0933 PATIENT NAME: DYLAN ROMERO CONSULTATION DATE OF : 79 REPORT #: [id number] PHYSICIAN: MORELIA ESTRADA MD PCP: JONES DAVISON MD REPORT IS CONFIDENTIAL AND NOT TO BE RELEASED WITHOUT AUTHORIZATION [facility] [address], [place] [address] Signed The patient has been initiated on 1 unit blood transfusion having noted her hematocrit to slowly been dropping from 29.9 at 7:00 p.m. yesterday to 26.8 this morning. Her platelet count is 225,000 currently. REVIEW OF SYSTEMS: She denies any shortness of breath or actual chest pain. She has had no hematemesis, but has had dark black stool per rectum. She has had generalized abdominal pain for quite some time, thought related to her incisional hernia. She has had a "cold" for which she has taken the Yuki-T[place]au. PHYSICAL EXAMINATION: GENERAL: Pleasant white woman, who does not look systemically toxic. HEENT: Her mucous membranes are moist. Trachea is midline. CHEST: Shows normal respiratory excursion. ABDOMEN: Quite massively obese. There is a transverse incision in the low to mid abdomen and a more vertical incision elsewhere. I do not detect a hernia currently. She does not have ascites that I can tell. EXTREMITIES: Show no clubbing, cyanosis, or edema. CURRENT MEDICATIONS: Include Coumadin on a daily basis. ALLERGIES: Multiple including Zofran causing hives, penicillin, diphenhydramine, bromocriptine and nonsteroidal medications. She has been advised to avoid nonsteroidal medication, but was unaware that Yuki-T[place]au does have aspirin in it. ASSESSMENT: The patient is not known to have had an ulcer in the past. She is at increased risk for it on the basis of her persistent use of Yuki-T[place] containing aspirin. She is considered to have a classic gastric bypass operation for which ulceration at the gastrojejunal anastomosis may be a source of bleeding. She did not show acute bleeding to suggest need for emergency intervention at this time, but may well have chronic persistent ulcerative bleeding from the upper gastrointestinal tract based on her history and drifting hematocrit and black stool. It is of course preferred that the source of bleeding be at gastrojejunal anastomosis rather than the isolated and inaccessible remaining body, antrum and duodenum of the upper gastrointestinal tract, which is largely inaccessible by endoscopic methods in the conventional way. Her INR is slightly elevated, but I do not think it likely to be problematic for upper endoscopy to ascertain the source of the bleeding problem. She is said to have a colonoscopy in the past few years at [facility] and is not known to have increased risks for a colonic source of bleeding. Nevertheless if upper endoscopy is unrevealing as to a source of blood loss, then consideration for colonoscopy would need to be made. It is Electronically Signed By: MORELIA ESTRADA MD 08/02/20 0933 PATIENT NAME: DYLAN ROMERO CONSULTATION DATE OF : 79 REPORT #: [id number] PHYSICIAN: MORELIA ESTRADA MD PCP: JONES DAVISON MD REPORT IS CONFIDENTIAL AND NOT TO BE RELEASED WITHOUT AUTHORIZATION [facility] [address] [place], [place] [address] Signed unlikely she has bleeding at a rate that would allow for a tagged red cell scan to be beneficial in identifying a bleeding source, though it is a consideration, particularly if it should identify following endoscopic evaluation right upper quadrant source of bleeding. The risks of bleeding, infection, perforation, and cardiopulmonary complications were reviewed in detail with her. She understands. Given her obesity and other similar issues, we will ask for anesthesia for assistance in sedation on this case. MD CARMEN Mccall/CARLOSL /[id number] cc: MD Jones Story MD Robert G Johnson, MD Copies: DUGLAS ADEN MD, ROBERT MD JOHNSON, ROBERT D DMD ~ Electronically Signed By: MORELIA ESTRADA MD 08/02/20 0933 PATIENT NAME: DYLAN ROMERO CONSULTATION DATE OF : 79 REPORT #: [id number] PHYSICIAN: MORELIA ESTRADA MD PCP: JONES DAVISON MD REPORT IS CONFIDENTIAL AND NOT TO BE RELEASED WITHOUT AUTHORIZATION
--- NOTE | 2020-08-02 09:33 | OR ---
[facility] [address], [place] [address] Signed DATE OF OPERATION: 07/29/2020 SURGEON: Morelia Estrada MD PREOPERATIVE DIAGNOSES: 1. Anemia and melena. 2. History of gastric bypass. Remaining BMI now 58, previously 84. POSTOPERATIVE DIAGNOSES: 1. Anemia and melena. 2. History of gastric bypass. Remaining BMI now 58, previously 84. 3. Peristomal ulcerations x2 (gastrojejunal anastomosis ulcerations). ANESTHESIA: Intravenous sedation, propofol infusion; Darlin Campos CRNA INDICATIONS: This 45-year-old white woman remains morbidly obese, but previously lost 265 pounds after gastric bypass operation performed at [facility] in 2018. She recently has had persistent use of Yuki-[place] for upper respiratory symptoms suggestive of a common cold. Her COVID test is negative notably. She had an episode of fainting yesterday, brought to the emergency room, found to have a hematocrit of 29.9. She has complained of a week's worth of black stool. She is self described as having allergy to nonsteroidal medication but has been taking Yuki-Encampment for her upper respiratory infection, which of course contains aspirin in it. She has had no hematemesis. Her hematocrit has drifted to 26.8 overnight. She has undergone one packed red cell transfusion under the direction of the hospitalist. She is admitted at this time to undergo upper endoscopy to better characterize the problem and specifically to assess for peptic disease related to NSAID use. She understands the risks of bleeding, infection, perforation, and so on and wished to proceed. FINDINGS: Indeed peristomal ulceration was noted. Two rather large ulcers were noted at the gastrojejunal at anastomosis. They were on the jejunal side. There was no sign of stenosis. The scope was easily passed well beyond the anastomosis into the jejunal limb. There was no sign of active bleeding or visible vessel. There was no indication for clips or epinephrine injected, though were ready. The stomach itself appeared reasonably normal. Biopsies were obtained for both LUCIO and pathologic testing. CLOtest was negative 15 minutes post procedure. The esophagus itself was normal. Electronically Signed By: MORELIA ESTRADA MD 08/02/20 0933 PATIENT NAME: DYLAN ROMERO OPERATIVE REPORT DATE OF : 79 REPORT #: [id number] PHYSICIAN: MORELIA ESTRADA MD PCP: JONES DAVISON MD REPORT IS CONFIDENTIAL AND NOT TO BE RELEASED WITHOUT AUTHORIZATION [facility] [address], [place] [address] Signed DESCRIPTION OF PROCEDURE: The patient was brought to the endoscopy suite and placed in the semi upright position, and given her obesity was not placed in the lateral position. She was given intravenous sedation by load tallier with full cardiopulmonary monitoring. This included primarily propofol. A bite block was placed and an Olympus video upper endoscope passed in the hypopharynx. The vocal cords appeared normal. The scope was advanced to the esophagus throughout its length, it was normal. There was no evidence of Okeefe's epithelium, stricture, neoplasm or varices. The scope was advanced to the gastric pouch, which was rather small and to the gastrojejunal limb which showed two ulcerations on the jejunal side of the anastomosis. There was no sign of active bleeding or clot. The scope was passed beyond this down the jejunal limb as was reasonably comfortable showing no other abnormality. The scope was withdrawn. Careful inspection of the ulcer showed them to have a yellowish thickened white base with no sign of visible vessel and certainly no sign of active bleeding at this time. They were opposed in a "kissing ulcer" configuration. Irrigation was undertaken very thoroughly again showing no sign of bleeding or vessel likely to be provoked of bleeding. The scope was withdrawn to the gastric pouch. It appeared normal. Biopsies were obtained for LUCIO and pathologic testing. The scope was withdrawn to the distal esophagus confirming no sign of bleeding or other problem there. Careful withdrawal of scope showed no other abnormality of the esophagus. The patient was then allowed to emerge from sedation, taken to recovery room in good condition having suffered no complication. CONCLUDING DIAGNOSIS: Melena and anemia, no doubt related to kissing ulcers of the gastrojejunal anastomosis. This almost certainly is related to her intake of aspirin via Yuki-Encampment of which she was unaware of its contents. PLAN: I will recommend Carafate liquid q.i.d. and PPI medication and strict avoidance of nonsteroidal medications. She will return to the hospital care of Dr. Aedn. MD CARMEN Mccall/CARLOSL /[id number] Electronically Signed By: MORELIA ESTRADA MD 08/02/20 0933 PATIENT NAME: DYLAN ROMERO OPERATIVE REPORT DATE OF : 79 REPORT #: [id number] PHYSICIAN: MORELIA ESTRADA MD PCP: JONES DAVISON MD REPORT IS CONFIDENTIAL AND NOT TO BE RELEASED WITHOUT AUTHORIZATION [facility] [address] [place], [place] [address] Signed cc: MD Jones Story MD Robert G Johnson, MD Copies: DUGLAS ADEN MD,JONES HARRIS MD DMD ~ Electronically Signed By: MORELIA ESTRADA MD 08/02/20 0933 PATIENT NAME: DYLAN ROMERO OPERATIVE REPORT DATE OF : 79 REPORT #: [id number] PHYSICIAN: MORELIA ESTRADA MD PCP: JONES DAVISON MD REPORT IS CONFIDENTIAL AND NOT TO BE RELEASED WITHOUT AUTHORIZATION
== END 2020-07-30 15:20 | disposition home or self-care (01) ==
LOC: ED 18:23 → CCU 18:25 → MS 18:25
PROVIDERS: ADMIT Internal Medicine; ATTEND Internal Medicine
DX: K25.4 Chronic or unspecified gastric ulcer with hemorrhage (principal); D62 Acute posthemorrhagic anemia; R94.31 Abnormal electrocardiogram [ECG] [EKG]; K46.9 Unspecified abdominal hernia without obstruction or gangrene; K29.51 Unspecified chronic gastritis with bleeding; E66.01 Morbid (severe) obesity due to excess calories; J00 Acute nasopharyngitis [common cold]; Z68.43 Body mass index [BMI] 50.0-59.9, adult; Z86.718 Personal history of other venous thrombosis and embolism; Z86.711 Personal history of pulmonary embolism; Z79.01 Long term (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; Z98.84 Bariatric surgery status; Z88.0 Allergy status to penicillin; Z88.8 Allergy status to other drugs, medicaments and biological substances; E87.6 Hypokalemia; E83.42 Hypomagnesemia; Z86.73 Personal history of transient ischemic attack (TIA), and cerebral infarction without residual deficits; Z20.822 Contact with and (suspected) exposure to COVID-19
CPT/HCPCS: 36415; 36430; 51701; 80048; 80053; 81001; 83605; 83690; 83735; 85025; 85610; 86850; 86900; 86901; 86920; 93005; 93010; 96361; 96365; 96375; 96376; 99285-25; C9113; C9803; G0378; J2001; J2060; J2250; J2270; J2704; J3475; J3480; J7060; J7120; J7121; P9016; Q0161; U0003

== ENCOUNTER 2020-08-06 20:27 | Emergency (ER) | payer OTHER ==
[~2020-08-06] VITALS: Ht 147.3 cm; Wt 124.8 kg
[~2020-08-06 20:27] MED LIST changes: +ALKA-SELTZER G1 EACH PO; +FLOMAX0.4 MG PO; +PROTONIX IV40 MG IV; +SUCRALFATE1 GM PO
--- OUTSIDE RECORDS SUMMARY | 2020-08-06 21:38 | XMS ---
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 ROMERO Security Special Agent Secret Service Events No recent Security Events currently on file CRITERIA MET - Group Notification - 6 ED Visits in 6 Months - [facility] - Has Care Guidelines - [facility] - 2 Visits in 30 Days CARE PROVIDERS [facility] Community Health Worker 07/03/2019-Current PHONE: [phone] JONES DAVISON [facility] 03/27/2020-Current PHONE: [phone] JONES DAVISON Dentist: Phone Operator 05/23/2019-Current PHONE: [phone] Rob Tilley Neonatal Intensive Care Unit Nurse/Alarm Signaler 03/27/2018-Current PHONE: [phone] [facility] Internal Medicine: Pulmonary Disease 08/23/2018-Current PHONE: Unknown Guidelines Source: [facility] [place] Guidelines Date: 09/16/2019 Care Coordination: Receives mental health services with [facility] [facility].\T\nbsp; Please contact [facility] [facility] regarding mental health concerns. [place] Office: [phone], [place] Office: [phone].\T\nbsp; [facility] Crisis: [phone]. Care History Medical/Surgical 03/27/2020 [facility] - [facility] CONTACTED PATIENT- PATIENT STATED SHE IS STILL EXPERIENCING ABDOMINAL PAIN AND WILL BE CONTACTING DR KISER OFFICE THIS AM. - PATIENT WAS LAST SEEN BY PCP ON 03/07/20 FOR ER FOLLOW UP. - PATIENT STATED ALL ABDOMINAL PAIN/SYMPTOMS WILL BE FOLLOWED UP BY DR WBEBER AND OR DR TIWARI. 03/26/2020 [facility] - DR WEBBER KNOWS THIS PATIENT WELL AND RECOMMENDED PATIENT BE SEEN BY DR TIWARI AT [facility]- A REFERRAL HAS BEEN GENERATED AND CT IMAGES SENT. 12/13/2019 [facility] - PATIENT HAD AN APT WITH DR DAVISON PCP ON 12/09/19 FOR FOLLOW UP TO ED VISIT. - NEXT APT SCHEDULED FOR PATIENT IS IN FEBRUARY 2020. E.D. VISIT COUNT (12 MO.) 1 [facility] [address] [facility] TOTAL 13 NOTE: Visits indicate total known visits. ED/UCC VISIT TRACKING (12 MO.) 08/06/2020 20:27 [facility] [place] TYPE: Emergency COMPLAINT: - WEAKNESS 07/28/2020 18:24 [facility] [place] TYPE: Emergency COMPLAINT: - DIZZINESS 04/17/2020 11:06 [facility] [place] TYPE: Emergency COMPLAINT: - POSS BLOOD CLOT DIAGNOSES: - Allergy status to other antibiotic agents - Allergy status to other drugs, medicaments and biological substances - Other longterm (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 - Allergy status to analgesic agent - Anxiety disorder, unspecified - Migraine, unspecified, not intractable, without status migrainosus - Obesity, unspecified - Dorsalgia, unspecified - Allergy status to penicillin - Chronic sinusitis, unspecified 03/26/2020 21:10 [facility] [place] TYPE: Emergency COMPLAINT: - ABDOMINAL PAIN DIAGNOSES: - Epigastric pain - Other longterm (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 - Allergy status to other antibiotic agents - Migraine, unspecified, not intractable, without status migrainosus - Anxiety disorder, unspecified - Allergy status to other drugs, medicaments and biological substances - Epigastric pain - Allergy status to penicillin 03/23/2020 16:14 [facility] [place] TYPE: Emergency COMPLAINT: - ABD PAIN/SWELLING DIAGNOSES: - Separation of muscle (nontraumatic), other site - Migraine, unspecified, not intractable, without status migrainosus - Anxiety disorder, unspecified - Allergy status to other drugs, medicaments and biological substances - Obesity, unspecified - Other longterm (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 - Unspecified abdominal pain - Allergy status to penicillin - Allergy status to other antibiotic agents 02/27/2020 15:27 [facility] [place] TYPE: Emergency COMPLAINT: - SOB DIAGNOSES: - Shortness of breath - Allergy status to analgesic agent - Acute upper respiratory infection, unspecified - Migraine, unspecified, not intractable, without status migrainosus - Allergy status to other drugs, medicaments and biological substances - Contact with and (suspected) exposure to other viral communicable diseases - Other longterm (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 - Allergy status to penicillin - Anxiety disorder, unspecified 12/19/2019 09:57 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 [place] TYPE: Emergency COMPLAINT: - STOMACH PAIN,BLOODY STOOL DIAGNOSES: - Anxiety disorder, unspecified - Allergy status to other drugs, medicaments and biological substances - Allergy status to other antibiotic agents - Other underwear finisher (current) drug therapy - Hypokalemia - Constipation, unspecified - Unspecified abdominal pain - Migraine, unspecified, not intractable, without status migrainosus - prison (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 - Allergy status to penicillin 11/13/2019 17:33 [facility] TYPE: Emergency COMPLAINT: - MULTIPLE COMPLAINTS DIAGNOSES: - Viral infection, unspecified - Cough - Other longterm (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 - Anxiety disorder, unspecified - Allergy status to other antibiotic agents - Allergy status to penicillin - Migraine, unspecified, not intractable, without status migrainosus 09/12/2019 17:58 [facility] [place] TYPE: Emergency COMPLAINT: - POST OP PAIN DIAGNOSES: - Allergy status to analgesic agent - Unspecified abdominal pain - Allergy status to penicillin - Other longterm (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 - Anxiety disorder, unspecified - Obesity, unspecified - Other postprocedural complications of skin and subcutaneous tissue - Allergy status to other drugs, medicaments and biological substances 09/08/2019 18:55 [facility] [place] TYPE: Emergency COMPLAINT: - DIFFICULTY BREATHING DIAGNOSES: - Headache - Other underwear finisher (current) drug therapy - Personal history of nicotine dependence - Shortness of breath 09/02/2019 21:22 [facility] [place] TYPE: Emergency COMPLAINT: - ABDOMINAL PAIN 08/18/2019 13:47 [facility] TYPE: Emergency DIAGNOSES: 29500. amr 11860. Morbid (severe) obesity due to excess calories 34102. Ventral hernia without obstruction or gangrene . Unspecified abdominal hernia with obstruction, without gangrene INPATIENT VISIT TRACKING (12 MO.) 07/28/2020 18:25 [facility] [place] TYPE: Observation COMPLAINT: - ACUTE GI BLEED, PROLONGED QT DIAGNOSES: - Hypokalemia - Acute posthemorrhagic anemia - Allergy status to other drugs, medicaments and biological substances - Personal history of transient ischemic attack (TIA), and cerebral infarction without residual deficits - Personal history of pulmonary embolism - Unspecified abdominal hernia without obstruction or gangrene - Allergy status to penicillin - Gastrointestinal hemorrhage, unspecified - Acute nasopharyngitis [common cold] - Unspecified chronic gastritis with bleeding - Bariatric surgery status - Allergy status to other drugs, medicaments and biological substances - Morbid (severe) obesity due to excess calories - Personal history of other venous thrombosis and embolism - prison (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 - Chronic or unspecified gastric ulcer with hemorrhage - Body mass index [BMI] 50.0-59.9, adult - Body mass index [BMI] 50.0-59.9, adult - Encounter for screening for other viral diseases - Hypomagnesemia - Abnormal electrocardiogram [ECG] [EKG] 09/03/2019 02:24 [facility] [place] TYPE: Medical Surgical COMPLAINT: - POST-OP HEMATOMA DIAGNOSES: - Body mass index [BMI] 50.0-59.9, adult - Personal history of pulmonary embolism - prison (current) use of opiate analgesic - Other chronic pain - Allergy status to other drugs, medicaments and biological substances - Anxiety disorder, unspecified - Allergy status to other drugs, medicaments and biological substances - oven drier tender (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 - Bipolar disorder, unspecified - Personal history of other venous thrombosis and embolism - Anxiety disorder, unspecified - Other chronic pain - Other underwear finisher (current) drug therapy - Postprocedural hematoma of a digestive system organ or structure following a digestive system procedure - Other underwear finisher (current) drug therapy - Personal history of other venous thrombosis and embolism - Bariatric surgery status - Essential (primary) hypertension - Personal history of transient ischemic attack (TIA), and cerebral infarction without residual deficits - Obstructive sleep apnea (adult) (pediatric) - Personal history of pulmonary embolism - Migraine, unspecified, not intractable, without status migrainosus - Bipolar disorder, unspecified - prison (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 - Acute posthemorrhagic [...] (severe) obesity due to excess calories - oven drier tender (current) use of opiate analgesic - Bariatric surgery status - Hypokalemia - Hypokalemia 08/18/2019 13:47 [facility] TYPE: Surgery DIAGNOSES: 77094. Unspecified abdominal hernia with obstruction, without gangrene . Morbid (severe) obesity due to excess calories 59680. Ventral hernia without obstruction or gangrene [email or web address]
[2020-08-06] MEDS ORDERED: PANTOPRAZOLE SO40 MG PO (22:26)
== END 2020-08-07 01:19 | disposition home or self-care (01) ==
LOC: ED 20:27
DX: R55 Syncope and collapse (principal); E87.6 Hypokalemia; G43.909 Migraine, unspecified, not intractable, without status migrainosus; Z88.8 Allergy status to other drugs, medicaments and biological substances; Z88.0 Allergy status to penicillin; Z88.6 Allergy status to analgesic agent; Z79.899 Other long term (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; Z79.01 Long term (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; Z86.718 Personal history of other venous thrombosis and embolism
CPT/HCPCS: 80053; 81001; 85025; 85610; 86850; 86900; 86901; 87077; 87088; 87186; 96365; 96375; 99284-25; C9113; J0696; J1170; J7030

== ENCOUNTER 2020-08-27 14:26 | Observation (INO) | payer OTHER ==
[~2020-08-27] VITALS: Ht 147.3 cm; Wt 123.6 kg
[~2020-08-27 14:26] MED LIST changes: -B-121000 MC2 PO; +B-12500 MC1 PO; -MULTI VITAMIN1 EACH PO; +MULTI-VITAMIN1 EAC1 PO; +PANTOPRAZOLE SO40 MG PO; +VITAMIN C 500500 MG PO; -VITAMIN C500 M1 PO
--- OUTSIDE RECORDS SUMMARY | 2020-08-27 14:28 | XMS ---
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 Events No recent Security Events currently on file CRITERIA MET - Group Notification - 6 ED Visits in 6 Months - [facility] - Has Care Guidelines - [facility] - 2 Visits in 30 Days CARE PROVIDERS [facility] Worker 07/03/2019-Current PHONE: [phone] JONES DAVISON [facility] 03/27/2020-Current PHONE: [phone] JONES DAVISON Dentist: Hr Director 05/23/2019-Current PHONE: [phone] Rob Tilley Tracer Clerk/Teacher Visually Impaired 03/27/2018-Current PHONE: [phone] CONCETTA UPTON Internal Medicine: Pulmonary Disease 08/23/2018-Current PHONE: Unknown Guidelines Source: [facility] [place] Guidelines Date: 09/16/2019 Care Coordination: Receives mental health services with [facility].\T\nbsp; Please contact [facility] regarding mental health concerns. [place] Office: , [place] Office: [phone].\T\nbsp; [facility]: [phone]. Care History Medical/Surgical 08/07/2020 [facility] - PATIENT HAS AN APT WITH DR DAVISON 08/13/20- PCP HAS RECEIVED RECENT ED VISIT RECORD FROM 08/06/20 ED VISIT. 03/27/2020 [facility] - CHW CONTACTED PATIENT- PATIENT STATED SHE IS STILL EXPERIENCING ABDOMINAL PAIN AND WILL BE CONTACTING DR KISER OFFICE THIS AM. - PATIENT WAS LAST SEEN BY PCP ON 03/07/20 FOR ER FOLLOW UP. - PATIENT STATED ALL ABDOMINAL PAIN/SYMPTOMS WILL BE FOLLOWED UP BY DR WEBBER AND OR DR TIWARI. 03/26/2020 [facility] - DR WEBBER KNOWS THIS PATIENT WELL AND RECOMMENDED PATIENT BE SEEN BY DR TIWARI AT [facility]- A REFERRAL HAS BEEN GENERATED AND CT IMAGES SENT. E.D. VISIT COUNT (12 MO.) 13 HAD[facility] Zamudio TOTAL 13 NOTE: Visits indicate total known visits. ED/UCC VISIT TRACKING (12 MO.) 08/27/2020 14:26 [facility] [place] TYPE: Emergency COMPLAINT: - ABD PAIN/WEAKNESS 08/06/2020 20:27 [facility] [place] TYPE: Emergency COMPLAINT: - WEAKNESS DIAGNOSES: - Migraine, unspecified, not intractable, without status migrainosus - Syncope and collapse - Weakness - Allergy status to other drugs, medicaments and biological substances - Other buttermaker continuous churn (current) drug therapy - Melena - Hypokalemia - Allergy status to penicillin - Personal history of other venous thrombosis and embolism - custodial (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 - Allergy status to analgesic agent 07/28/2020 18:24 [facility] [place] TYPE: Emergency COMPLAINT: - DIZZINESS 04/17/2020 11:06 [facility] [place] TYPE: Emergency COMPLAINT: - POSS BLOOD CLOT DIAGNOSES: - Allergy status to other antibiotic agents - Allergy status to other drugs, medicaments and biological substances - Other buttermaker continuous churn (current) drug therapy - Allergy status to analgesic agent - Anxiety disorder, unspecified - Migraine, unspecified, not intractable, without status migrainosus - Obesity, unspecified - Dorsalgia, unspecified - Allergy status to penicillin - Chronic sinusitis, unspecified 03/26/2020 21:10 [facility] [place] TYPE: Emergency COMPLAINT: - ABDOMINAL PAIN DIAGNOSES: - Epigastric pain - Other prison (current) drug therapy - Allergy status to [...] biological substances - Obesity, unspecified - Other prison (current) drug therapy - Unspecified abdominal pain - Allergy status to penicillin - Allergy status to other antibiotic agents 02/27/2020 15:27 [facility] [place] TYPE: Emergency COMPLAINT: - SOB DIAGNOSES: - Shortness of breath - Allergy status to analgesic agent - Acute upper respiratory infection, unspecified - Migraine, unspecified, not intractable, without status migrainosus - Allergy status to other drugs, medicaments and biological substances - Contact with and (suspected) exposure to other viral communicable diseases - Other buttermaker continuous churn (current) drug therapy - Allergy status to penicillin - Anxiety disorder, unspecified 12/19/2019 09:57 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 - Ocular pain, right eye - Migraine, unspecified, not intractable, without status migrainosus - Anxiety disorder, unspecified - Other buttermaker continuous churn (current) drug therapy - Allergy status to other drugs, medicaments and biological substances - Allergy status to penicillin 12[facility]02[facility]2019 12:[facility] [place] [facility] COMPLAINT: - STOMACH PAIN,BLOODY STOOL DIAGNOSES: - Anxiety disorder, unspecified - Allergy status to other drugs, medicaments and biological substances - Allergy status to other antibiotic agents - Other prison (current) drug therapy - Hypokalemia - Constipation, unspecified - Unspecified abdominal pain - Migraine, unspecified, not intractable, without status migrainosus - custodial (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 - Allergy status to penicillin 11/13/2019 17:33 [facility] [place] [facility] COMPLAINT: - MULTIPLE COMPLAINTS DIAGNOSES: - Viral infection, unspecified - Cough - Other prison (current) drug therapy - Anxiety disorder, unspecified - Allergy status to other antibiotic agents - Allergy status to penicillin - Migraine, unspecified, not intractable, without status migrainosus 09/12/2019 17:58 [facility] [place] TYPE: Emergency COMPLAINT: - POST OP PAIN DIAGNOSES: - Allergy status to analgesic agent - Unspecified abdominal pain - Allergy status to penicillin - Other prison (current) drug therapy - Anxiety disorder, unspecified - Obesity, unspecified - Other postprocedural complications of skin and subcutaneous tissue - Allergy status to other drugs, medicaments and biological substances 09/08/2019 18:55 [facility] [place] TYPE: Emergency COMPLAINT: - DIFFICULTY BREATHING DIAGNOSES: - Headache - Other buttermaker continuous churn (current) drug therapy - Personal history of nicotine dependence - Shortness of breath 09/02/2019 21:22 [facility] [place] TYPE: Emergency COMPLAINT: - ABDOMINAL PAIN INPATIENT VISIT TRACKING (12 MO.) 07/28/2020 18:25 [...] exposure to other viral communicable diseases - Morbid (severe) obesity due to excess calories - Personal history of other venous thrombosis and embolism - watermaster (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 - Chronic or [...] - Personal history of pulmonary embolism - watermaster (current) use of opiate analgesic - Other chronic pain - Allergy status to other drugs, medicaments and biological substances - Anxiety disorder, unspecified - Allergy status to other drugs, medicaments and biological substances - custodial (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 - Bipolar disorder, unspecified - Personal history of other venous thrombosis and embolism - Anxiety disorder, unspecified - Other chronic pain - Other prison (current) drug therapy - Postprocedural hematoma of a digestive system organ or structure following a digestive system procedure - Other buttermaker continuous churn (current) drug therapy - Personal history of other venous thrombosis and embolism - Bariatric surgery status - Essential (primary) hypertension - Personal history of transient ischemic attack (TIA), and cerebral infarction without residual deficits - Obstructive sleep apnea (adult) (pediatric) - Personal history of pulmonary embolism - Migraine, unspecified, not intractable, without status migrainosus - Bipolar disorder, unspecified - custodial (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 - Acute posthemorrhagic [...] (severe) obesity due to excess calories - watermaster (current) use of opiate analgesic - Bariatric surgery status - Hypokalemia - Hypokalemia [email or web address]
[2020-08-27] MEDS ORDERED: LATUDA60 MG PO (16:53)
[2020-08-27] MEDS ORDERED: VENTOLIN HFA18 GM INH (16:54)
--- NOTE | 2020-08-27 22:39 | EKG ---
[facility] [address] [place], [place] [address] Signed Normal sinus rhythm Normal ECG When compared with ECG of 28-JUL-2020 18:30, QT has shortened Confirmed by DUGLAS ALTMAN MD ([id number]) on 08/27/2020 10:39:00 PM Electronically Signed By: DUGLAS ALTMAN MD 08/27/20 2239 PATIENT NAME: DYLAN ROMERO Electrocardiogram DATE OF : 79 PHYSICIAN: DUGLAS ALTMAN MD REPORT #: [id number] REPORT IS CONFIDENTIAL AND NOT TO BE RELEASED WITHOUT AUTHORIZATION
--- NOTE | 2020-08-27 22:42 | NUR ---
PATIENT MOVED FROM ROOM 122 TO ROOM 118 DUE TO TEMPERATURE REGULATION IN ROOM. FAN PLACED IN pt ROOM REQUESTED.
--- NOTE | 2020-08-27 23:13 | NUR ---
2200 PT BROUGHT DOWN FROM ED VIA STRETCHER WITH ALL BELONGINGS. IV ABX INFUSING INTO L IV. PT ABLE TO ROLL FROM STRETCHER TO BED WITHOUT ASSISTANCE. PT NEEDED TO VOID AFTERWARDS, PT ABLE TO VOID YELLOW CONCENTRATED URINE INTO BSC. PT STATED URINATION BURNED. DURING THIS PT STATED SHE FELT LIGHTHEAD AND IF SHE HAD TO PASS OUT. PT ABLE TO GET BACK INTO BED WITH ASSISTANCE. UPON ASSESSMENT PT HAD A RASH/REDDENED AREA UNDER PANNUS THAT PT HAD PUT HER OWN POWDER ON IT BEFORE COMING. PT REPORTED HAVING PAIN IN MID ABDOMEN AND RLQ 8/10. PT ALSO STATED SHE WAS FEELING ANXIOUS. PRN MORPHINE AND PRN ATIVAN ADMINISTERED. ORDERED IVF STARTED, PT GIVEN ORDERED MEDICATIONS (SEE MAR). PT THEN MOVED TO ANOTHER ROOM DUE TO ROOM BEING HOT. PT NOW LAYING IN BED IN NEW ROOM. IVF INFUSING ORDERED, PT REPORTS NO FURTHER NEEDS WHEN ASKED. CALL LIGHT WITHIN REACH, BED IN LOWEST POSITION, WILL CONTINUE PLAN OF CARE.
--- NOTE | 2020-08-27 23:20 | NUR ---
THIS VISUAL C DEVELOPER ANSWERED CALL LIGHT. SBA PATIENT GOT UP TO USE THE BEDSIDE COMMODE. PATIENT STATED" I CAN NOT BE LEFT ALONE WHEN I AM UP, I FEEL DIZZY". THIS VISUAL C DEVELOPER WIPED PATIENT'S PRIVATE AREA. PATIENT IS BACK IN BED. ICE CHIPS PROVIDED. PAIN MEDICATION REQUESTED. NOTIFIED THE PRIMARY RN.
--- NOTE | 2020-08-27 23:55 | NUR ---
THIS RN IN TO ASSESS PT. PT STATES SHE IS IN 8/10 MID AND RIGHT ABDOMINAL PAIN. PRN MORPHINE ADMINISTERED (SEE MAR). PT REPORTS NO FURTHER NEEDS WHEN ASKED. IVF INFUSING, CALL LIGHT IN REACH, BED IN LOWEST POSITION, WILL CONTINUE PLAN OF CARE.
--- NOTE | 2020-08-28 02:48 | NUR ---
IN TO ASSESS PT. PT STATED SHE WAS HAVING ABDOMINAL PAIN 03/05. STATED IT STILL FELT LIKE IT WAS THROBBING. PT ALSO STATED SHE WAS FEELING ANXIOUS AND ASKED FOR HER PRN MEDICATION. PRN MORPHINE AND ATIVAN ADMINISTERED (SEE MAR). HOT PACK GIVEN TO PT WELL. PT HELPED UP TO BSC TO VOID. PT STATED SHE FELT LIGHT HEADED AND WEAK WELL. PT ABLE TO GET BACK TO BED WITH MINIMAL ASSISTANCE. PT PROVIDED WITH ICE CHIPS, ASSESSMENT COMPLETE, PT REPORTS NO FURTHER NEEDS WHEN ASKED. BED IN LOWEST POSITION, CALL LIGHT WITHIN REACH, WILL CONTINUE PLAN OF CARE.
--- NOTE | 2020-08-28 04:10 | NUR ---
THIS RN IN TO ASSESS PT. PT LAYING IN BED SLEEPING. RESPIRATIONS EVEN AND UNLABORED. PT IN NO APPARENT DISTRESS AT THIS TIME AND WAS LEFT UNDISTURBED, WILL CONTINUE PLAN OF CARE.
--- NOTE | 2020-08-28 05:00 | NUR ---
PT LAYING IN BED SLEEPING. RESPIRATIONS EVEN AND UNLABORED. PT IN NO APPARENT DISTRESS AND LEFT UNDISTURBED AT THIS TIME. WILL CONTINUE PLAN OF CARE.
--- NOTE | 2020-08-28 05:06 | NUR ---
PT HAD DIFFICULT TIME GOING TO SLEEP DUE TO ABDOMINAL PAIN AND ANXIETY. PT RECEIVED 3 DOSES OF MORPHINE 4MG THROUGH THE NIGHT AND 2 DOSES OF ATIVAN. PT REPORTS DIZZINESS WHEN GETTING UP. GAIT IS UNSTEADY BUT PT ABLE TO TRANSFER TO BEDSIDE COMMODE. PT RECEIVING LR AND 20 OF POTASSIUM CONTINUOUS. DESENEX ORDERED DUE TO RASH/IRRITATION UNDER PANNUS. PT RESTING HR MAINTAINED IN THE UPPER 90'S TO 100'S AND IS ON TELE 7. PT STANDBY ASSIST AND BEDREST WITH BATHROOM PRIVILEGES.
--- NOTE | 2020-08-28 05:50 | NUR ---
PT GETTING LABS DRAWN. PT NEEDED TO USE BSC AFTERWARDS TO VOID. PT UP TO BSC WITH ASSISTANCE AND ABLE TO GET IN BED WITH MINIMAL ASSISTANCE. PT REPORTS FEELING WEAK AND LIGHTHEADED STILL WHEN GETTING UP. PRN MORPHINE 4MG GIVEN FOR 7/10 ABDOMINAL PAIN. VS CHECKED AND STABLE. PT PROVIDED WITH ICE CHIPS REQUESTED. PT NOW LAYING IN BED WATCHING TV. PT REPORTS NO FURTHER NEEDS WHEN ASKED. IVF INFUSING ORDERED, WILL CONTINUE PLAN OF CARE.
--- NOTE | 2020-08-28 07:03 | NUR ---
THIS RN IN TO CHECK ON PT. PT ASKED TO USE BSC. PT HELPED UP TO BSC TO VOID AND HELPED BACK. PT STILL HAVING LIGHTHEADEDNESS AND FEELING WEAK. PT REPORTS NO FURTHER NEEDS AT THIS TIME, WILL CONTINUE PLAN OF CARE.
--- NOTE | 2020-08-28 07:15 | NUR ---
BEDSIDE HANDOFF REPORT RECEIVED FROM [employer] SECRETARY RN. PT RESTING IN BED. PT REQUESTING PAIN MEDICATION [facility] AVAILABLE. PT DENIES OTHER NEEDS AT THIS TIME.
--- NOTE | 2020-08-28 08:25 | NUR ---
PT RESTING IN BED. PT ASSISTED TO BSC, CONTINUES TO REPORT DIZZINESS WHEN SITTING AND STANDING. PT ON ROOM AIR, LUNG SOUNDS CLEAR WITH DIMINISHED BASES. PT REPORT OF ABD PAIN 7/10 TO ABD, GIVEN MORPHINE. PT REPORT OF ANXIETY, GIVEN 1MG IV ATIVAN. PT NPO AT THIS TIME, ICE CHIPS FOR COMFORT, BOWEL TONES ACTIVE, DENIES NAUSEA. CMS INTACT, EDEMA TO BLE GENERALIZED 2+ AROUND ANKLES. IV FLUIDS STOPPED FOR IV ROCEPHIN INFUSION. PT DENIES OTHER NEEDS AT THIS TIME. DISCUSSED PLAN OF CARE FOR MORNING INCLUDING ORTHOSTATIC VITAL SIGNS.
--- NOTE | 2020-08-28 09:23 | NUR ---
ABX COMPLETED. IV FLUIDS STARTED BACK AT 125ML/HR. PT LYING IN BED AND DENIES NEEDS. CALL LIGHT IN REACH.
--- NOTE | 2020-08-28 10:30 | NUR ---
ORHTOSTATIC VITAL SIGNS ASSESS, PT WAS UNABLE TO STAND LONGER THAN 1 MINUTE DUE TO DIZZINESS. PT REUQESTING TO EAT OR DRINK, NPO AT THIS TIME, DISCUSSED WITH DR. ALTMAN WHO WOULD LIKE TO KEEP PO UNTIL PAIN IS IMPROVED IN CASE THERE IS NEED FOR SURGERY. DESENEX POWDER APPLIED TO SKIN UNDER PANNUS AND ALONG GROING, DISCUSSED NEED FOR SHOWER TODAY AND PT AGREEABLE. PT DENIES OTHER NEEDS AT THIS TIME.
[2020-08-28] MEDS ORDERED: CHLORPROMAZINE200 MG PO (10:48)
--- NOTE | 2020-08-28 10:49 | NUR ---
MED REC COMPLETE
--- NOTE | 2020-08-28 11:36 | NUR ---
IN TO ADMISNTJOSE JOHN. PT LYING IN BED WATCHING TV. SWALLOWED WIT SIP OF WATER. REPROTS PAIN AT 7/10 STILL. PRIMARY NURSE NOTIFIED.
--- NOTE | 2020-08-28 12:58 | NUR ---
PT COMPLAINT OF HEADACHE, PT STATES SHE THINKS IT IS FROM THE MORPHINE, DISCUSSED WITH JENNIFER DIXON TO START TYLENOL, NIO PLACED, TYLENOL GIVEN. PT ALSO STATES THAT SHE GETS HEADACHE WITH LOW BLOOD SUGAR, REQUESTING FOR BLOOD GLUCOSE TO BE CHECKED, BLOOD GLUCOSE 109. PT DENIES OTHER NEEDS AT THIS TIME.
--- NOTE | 2020-08-28 13:48 | NUR ---
PATIENT BACK TO BED FROM BSC, SBA. MOM IN ROOM. ICE CHIPS GIVEN. CALL LIGHT INR EACH. NO FURTHER NEEDS AT THIS TIME.
--- NOTE | 2020-08-28 14:43 | NUR ---
PT CONTINUES TO RATE PAIN 7/10, HEADACHE HAS SLIGHTLY IMPROVED. PT REQUESTING MORPHINE AND ATIVAN FOR ANXIETY, 4MG MORPHINE GIVEN, 1MG IV ATIVAN GIVEN. PT DENIES OTHER NEEDS AT THIS TIME.
--- NOTE | 2020-08-28 15:07 | NUR ---
Patient rounding completed and Case Management assesment completed. Pt feels comfortable in the room and has been happy with her care, both in the room and in the ED. Pt is concerned about not seeing her doctor,, explained that we have had multiple admissions today and the doctor will be in to see her when possible secondary to schedule. Also explained that doctor is able to review labs etc., to continue care on patient prior to coming to the room. Elzbieta would like to eat, but understands why she is not able to take anything by mouth. Elzbieta is also aware of the antibiotics that she is taking, and that she is being prescribed this medication for her urinary tract infection.
--- NOTE | 2020-08-28 16:30 | NUR ---
DR. ALTMAN TO BEDSIDE TO EVALUATE PT. PLAN TO CONTINUE CURRENT TREATMENT PLAN, ALLOW PT TO HAVE CLEAR LIQUID DIET. PT GIVEN MORPHINE 4 MG IV, APPLE JUICE. IV SALINE LOCKED FOR SHOWER, FISHER OYSTER TO ASSIST. PT DENIES OTHER NEEDS AT THIS TIME.
--- NOTE | 2020-08-28 17:24 | NUR ---
PT COMPLETED WITH MACARIO MULLINS REQUESTED RN TO ASSESS RASH UNDER PANNUS. RASH WITH OPEN AREAS, SMALL AMOUNT OF BLEEDING, SKIN FOLDS DRIED THOROUGHLY AND DESENEX POWDER REAPPLIED. IV FLUIDS RESUMED. PT VOIDED ON BEDSIDE COMMODE AND ASSISTED BACK TO BED. PT DENIES OTHER NEEDS AT THIS TIME.
--- NOTE | 2020-08-28 18:32 | NUR ---
PT WITH CONTINUOUS PAIN 02/02, GIVEN 4MG IV MORPHINE Q2H CONSISTENTLY. PT WITH ANXIETY, GIVEN 1MG IV ATIVAN X2. PT ADVANCED TO CLEAR LIQUID DIET, TOLERATING. SBA TO BSC, VOIDING QS. PT TOOK SHOWER TODAY, HAS RASH UNDER PANNUS AND SKIN FOLDS, MICONAZOLE POWDER APPLIED, PT HAS SOME OPEN AREAS WITH BLEEDING AFTER SHOWER. LR +20MEQ K AT 125ML/HR. TELE #7, SR.
--- NOTE | 2020-08-28 18:54 | NUR ---
PATIENT IN BED WATCHING TV. RN IN ROOM AT THIS TIME. VITALS AND I&O'S CHARTED. CALL LIGHT IN REACH. NO FURTHER NEEDS AT THIS TIME.
--- NOTE | 2020-08-28 18:55 | NUR ---
PT REQUESTIN PAIN MEDICATION, RATING PAIN 7/10 TO ABD, GIVEN 2MG IV MORPHINE. PT ALSO REQUESTING ATIVAN FOR ANXIETY, 1MG IV ATIVAN GIVEN. PT DENIES OTHER NEEDS AT THIS TIME.
--- NOTE | 2020-08-28 19:46 | NUR ---
REPORT RECEIVED FROM SANTIAGO RN. PT AWAKE AND ALERT LAYING IN BED. PT REPORTS NO NEEDS WHEN ASKED. IVF INFUSING ORDERED. WILL CONTINUE PLAN OF CARE.
--- NOTE | 2020-08-28 20:20 | NUR ---
PT LAYING IN BED AWAKE AND ALERT. PT IVF INFUSING ORDERED. PT REPORTS 7/10 ABDOMINAL PAIN. PRN TYLENOL ADMINISTERED ALONG WITH OTHER ORDERED MEDICATIONS (SEE MAR). IV FLUIDS INFUSING ORDERED. ASSESSMENT COMPLETE, ORTHOSTATIC VITALS COMPLETE (SEE CHART), VS STABLE. PT STATES ABDOMEN STILL HURTS AND THAT SHE IS HAVING OCCASIONAL HEADACHES. DESENEX POWDER APPLIED, PT. HAS OPEN SKIN IN THE R FOLD OF HER PANNUS AND L FOLD OF HER GROIN. PT STATES SHE GETS THESE ON OCCASION DESPITE USING HER POWDER. PT UP TO BSC TO VOID AND REPORTS FEELING WEAK STILL. PERICARE DONE FOR PT BY KELSIE HADLEY. PT ABLE TO GET BACK INTO BED. PT GIVEN BROTH AND JELLO PER HER REQUEST AND REPORTS NO FURTHER NEEDS WHEN ASKED. CALL LIGHT WITHIN REACH, BED IN LOWEST POSITION, WILL CONTINUE PLAN OF CARE.
--- NOTE | 2020-08-28 21:00 | NUR ---
RESPONDED TO PT CALL LIGHT. PT STATED SHE WAS HAVING 6/10 ABDOMINAL PAIN AND A MILD HEADACHE AND REQUESTED HER PRN MORPHINE. PT GIVEN 4MG PRN MORPHINE FOR PAIN. PT REPORTS NO FURTHER NEEDS, IVF INFUSING ORDERED. PT LAYING IN BED AWAKE, WATCHING TV. CALL LIGHT IN REACH, BED IN LOWEST POSITION, WILL CONTINUE PLAN OF CARE.
--- NOTE | 2020-08-28 22:50 | NUR ---
THIS RN IN TO CHECK ON PT. PT LAYING IN BED WATCHING TV. IVF INFUSING ORDERED. PT STATES TYLENOL AND MORPHINE HAVE HELPED WITH PAIN BUT REPORTS ITS STILL PRESENT IN HER ABDOMEN. PT TELEMETRY BATTERY CHANGED. PT REPORTS NO FURTHER NEEDS AT THIS TIME BUT REQUESTS TO RECEIVE HER PRN MORPHINE AND ATIVAN WHEN THEY ARE AVAILABLE. WILL CONTINUE PLAN OF CARE. CALL LIGHT WITHIN REACH, BED IN LOWEST POSITION.
--- NOTE | 2020-08-28 23:19 | NUR ---
THIS RN IN TO ADMINISTER PT'S PRN MEDICATIONS. 4MG MORPHINE AND 1MG ATIVAN GIVEN FOR 6/10 ABD PAIN AND ANXIETY. IVF INFUSING ORDERED. PT REPORTS NO FURTHER NEEDS WHEN ASKED AND STATES SHE'S GOING TO TRY AND GET SOME SLEEP. PT LAYING IN BED, IVF INFUSING, BED IN LOWEST POSITION, CALL LIGHT WITHIN REACH. WILL CONTINUE PLAN OF CARE.
--- NOTE | 2020-08-29 00:55 | NUR ---
RESPONDED TO PT CALL LIGHT. PT NEEDED TO VOID. PT UP TO BS TO VOID AND ABLE TO GET BACK INTO BED WITHOUT ASSISTANCE. PT REPORTS STILL HAVING ABDOMINAL PAIN. PT ALSO STATES SHE STILL HAS DIZZINESS AND WEAKNESS WHEN GETTING UP BET STATES ITS BETTER. PT NOW IN BED WATCHING TV, IVF INFUSING ORDERED. PT REPORTS NO FURTHER NEEDS WHEN ASKED, WILL CONTINUE PLAN OF CARE.
--- NOTE | 2020-08-29 02:20 | NUR ---
THIS RN IN TO HANG NEW BAG OF IV FLUIDS. PT SLEEPING IN BED, RESPIRATIONS EVEN AND UNLABORED. PT IN NO APPARENT DISTRESS AND WAS LEFT UNDISTURBED. NEW BAG OF IVF INFUSING, BED IN LOWEST POSITION, CALL LIGHT WITHIN REACH. WILL CONTINUE PLAN OF CARE.
--- NOTE | 2020-08-29 03:53 | NUR ---
PT RESTED WELL THROUGHOUT NIGHT. PT STILL HAS COMPLAINTS OF 6/10 ABDOMINAL PAIN. PT BEING GIVEN PRN 4MG IV MORPHINE Q2H WHEN AWAKE. PT ALSO BEING GIVEN PRN IV ATIVAN 1MG FOR ANXIETY. PT TOLERATING CLEAR LIQUID DIET. STANDBY ASSIST FOR BEDSIDE COMMODE. PT VOIDING QS. DESENEX APPLIED TO RASH.
--- NOTE | 2020-08-29 04:59 | NUR ---
THIS RN IN TO ASSESS PT. PT AWAKE AND ALERT AND STATES SHE HAS 6/10 ABD PAIN AND IS ANXIOUS. PRN ATIVAN AND MORPHINE GIVEN (SEE MAR). IV FLUIDS INFUSING ORDERED. PT STATES THAT HER ABDOMINAL AREA/HERNIA LOOKS LARGER. MASS IS PALPABLE, BOWEL SOUNDS HEARD, NO SIGNIFICANT CHANGES NOTICED. PT NEEDED TO VOID AFTER MEDICATIONS. PT ABLE TO GET UP TO USE BSC AND GET BACK TO BED. PT STATED DOING SO MADE HER FEEL LIGHTHEADED. PT RECOVERED QUICKLY ONCE IN BED. PT PROVIDED WITH WARM BLANKETS, VS STABLE, PT PROVIDED WITH JUICE PER HER REQUEST. PT REPORTS NO FURTHER NEEDS WHEN ASKED. CALL LIGHT WITHIN REACH, BED IN LOWEST POSITION, WILL CONTINUE PLAN OF CARE.
--- NOTE | 2020-08-29 06:11 | NUR ---
PT LAYING IN BED AWAKE AND ALERT WATCHING TV. IVF INFUSING ORDERED. PT GIVEN ORDERED MEDICATIONS (SEE MAR). PT REQUESTED IV MORPHINE WHEN HER NEXT DOSE WAS DUE BECAUSE OS 6/10 ABDOMINAL PAIN. PT REPORTS NO FURTHER NEEDS WHEN ASKED. CALL LIGHT WITHIN REACH, BED IN LOWEST POSITION. WILL CONTINUE PLAN OF CARE.
--- NOTE | 2020-08-29 06:52 | NUR ---
IN TO ASSESS PT. PT AWAKE AND ALERT IN BED WATCHING TV. PT REPORTS HAVING 6/10 ABDOMINAL PAIN. PRN MORPHINE 4MG ADMINISTERED. PT REPORTS NO FURTHER NEEDS WHEN ASKED. IVF INFUSING ORDERED, CALL LIGHT WITHIN REACH, WILL CONTINUE PLAN OF CARE.
--- NOTE | 2020-08-29 10:02 | NUR ---
PATIENT STATED SHE HAD NAUSEA AFTER CLEAR BREAKFAST AND THAT SHE IS ALSO ALLERGIC TO ZOFRAN. NAUSEA SUBSIDED AFTER A FEW MINUTES. PT. RATES ABD PAIN 6/10 AND THROBBING. IV SITE WNL AND FLUSHES WELL. PT. GIVEN MORNING MEDS. AND PRN MORPHINE, ATIVAN. PT. DR. ALTMAN IN TO SEE PT. PT. AMBULATED WITH STANDBY ASSIST TO BATHROOM AND TOLERATED WELL. POWDER APPLIED TO PANNUS AREA. SKIN IS OPEN AND BLEEDING IN SEVERAL AREAS. POWDER APPLIED. VITAL SIGNS STABLE AND ON RA. PATIENT LEFT RESTING IN BED WITH CALL LIGHT IN REACH.
--- NOTE | 2020-08-29 10:46 | NUR ---
PT IS LAYING IN BED. SHE IS WATCHING TV. I&O ARE DONE AND RECORDED. CALL LIGHT IS IN REACH. N0 FURTHER NEEDS AT THIS TIME.
--- NOTE | 2020-08-29 12:40 | NUR ---
PATIENT FOUND CRYING IN BED. STATES IT IS BECAUSE OF PAIN AND OTHER ISSUES, BUT DID NOT WANT TO DISCUSS. RATES ABDOMINAL PAIN 02/02. PERCOCET ADMIN. LUNGS CLEAR THROUGHOUT AND ON RA. RUQ AND RLQ VERY TENDER AND HERNIA PALPATED. EDEMA ABSENT. PT. TOLERATED LUNCH WELL AND DENIES NAUSEA. PT. LEFT RESTING IN BED WITH CALL LIGHT IN REACH.
--- NOTE | 2020-08-29 14:25 | NUR ---
PATIENT REQUESTED ATIVAN FOR ANXIETY. STATES HER PAIN IS 6/10, BUT TOLERABLE. REQUESTED SNACK AND SODA. PT. LEFT RESTING IN BED WITH CALL LIGHT IN REACH.
--- NOTE | 2020-08-29 17:21 | NUR ---
PT IS SITTING UP IN BED PLAYING WITH HER PHONE. HER VITALS AND I&OS ARE DONE AND DOCUMENTED. CALL LIGHT IS IN REACH. NO FURTHER ASSISTANCE NEEDED AT THIS TIME.
--- NOTE | 2020-08-29 19:47 | NUR ---
c/o increased anxiety, medicated with Ativan 1mg IV
--- NOTE | 2020-08-29 21:51 | NUR ---
pe in bed, calmer, c/o 6/10 abd pain. lungs clear bilat, tele #7 SV rhythm, denies CP or spb, large abd, red between pannus powder applied and dry pillowcases between folds to act as a barrier applied. open areas in folds present. c/o abd pain when doing it. sl LAC patent bruising over arms healing. Laying in bed, room air. call light and fluids at bedside
--- NOTE | 2020-08-29 21:58 | NUR ---
IN TO GET VITALS, NO FURTHER NEEDS AT THIS TIME
--- NOTE | 2020-08-30 00:48 | NUR ---
IN TO CHANGE TELE BATTERY, NO FURTHER NEEDS AT THIS TIME
--- NOTE | 2020-08-30 01:45 | NUR ---
PT AWAKE, UP TO BR, VOIDED, BACK TO BED, SBA. NO C/O PAIN OR ANTIANXIETY MEDS AT THIS TIME. CALL LIGHT AT BEDSIDE, TOLERATING FLUIDS WELL
--- NOTE | 2020-08-30 02:16 | NUR ---
VITALS COMPLETE. PT STATES UNCOMFORTABLE, PAIN LEVEL 7/10. WARM BLANKETS AND PRN TYLENOL GIVEN. NO FURTHER NEEDS, CALL LIGHT IN REACH
--- NOTE | 2020-08-30 05:41 | NUR ---
Pt has slept this shift, Independent/SBA, has voided QS, and tolerating liquids well. Was medicated with Ativan IV x1 at begining of shift for anxiety, calmer. was medicated with scheduled pain meds per abd pain. Very irritated uner pannus, and upper thigh creases, powder applied as per orders, open areas healilng, edema LE, baseline. On room air
--- NOTE | 2020-08-30 06:21 | NUR ---
Pt c/o feeling anxious, and 6/10 abd and h/a pain. Medicated with Xanax 1mg po and Tylenol 500mg po. In bed. toleratiang fluids well, no n/v. uses call light
--- NOTE | 2020-08-30 06:43 | NUR ---
Pt in room , stated that "Clarence in a lot of pain, Tylenol soed nothing for me, Im uses to taking pain meds when I need them". Tylenol given earlier not effective. asking for more pain relief, pt gets QID scheduled Percocet . next dose is at 0900. will call Dr Aden
--- NOTE | 2020-08-30 07:18 | NUR ---
Dr Aden notified of pts c/o that Tylenol not effective, new orders to ok to give 1 Percocet now and the second single dose at scheduled 0900time. Incoming KELSIE Gonzalez notified.
--- NOTE | 2020-08-30 07:25 | NUR ---
REPORT RECEIVED FROM MARLEEN IGLESIAS. KELSIE GUIDRY ASSUMING CARE OF PT WITH ASSISTANCE FROM THIS RN NEEDED. PT REPORTS 6/10 PAIN IN ABOMINAL AREA STATING "IT'S MY HERNIA PAIN." PT REPORTS UTI PAIN MEDICATION AZO HAS NOT BEEN HELPFUL IN THE PAST. MD CALLED BY KELSIE HAWLEY. STATES TO GIVE 1/2 OF 0900 PERCOCET DOES NOW. MEDICAITON GIVEN ORDERED. PT UPDATED ON PLAN FOR PAIN CONTROL AND STATES SHE THINKS "THAT WILL BE FINE." PT WATCHING TV. NO ADDIITONAL REQUESTS OR COMPLAINTS. CALL LIGHT WITHIN REACH.
--- NOTE | 2020-08-30 08:59 | NUR ---
PT CALL LIGHT ON. PT REQUESTS PAIN MEDICATION PRIOR TO SHOWER. THIS RN TO ROOM. PT REPORTS 6/10 PAIN IN ABDOMEN. PT REPORTS SHE "ALWAYS" HAS THIS PAIN AND TYPICALLY CONTROLS IT WITH PERCOCET AT HOME. 2ND TABLET OF PERCOCET GIVEN PER MD ORDER. IV NOTED TO BE OUT OF VEIN. IV DC'D PER PROTOCOL, GAUZE AND COBAN APPLIED. MD STATES TELEMETRY MONITORING CAN BE DC'D AT THIS TIME. TELE DC'D. PT UP TO SHOWER WITH OCCUPATINAL THERPIST. PT REPORTS SHE HAS NO ADDITIONAL REQUESTS OR COMPLAINTS AT THIS TIME. CALL LIGHT WITHIN REACH. OCCPATIONAL THERAPY AT BEDSIDE.
--- NOTE | 2020-08-30 09:30 | NUR ---
REPORT RECEIVED FROM NIGHT RN AND CARE RESUMED. PT. IV IS NOT PATENT AND SO IV ABX WILL BE IM. PT. REPORTS 02/02 PAIN AFTER AMBULATING WITH PT. REQUESTS ADDITIONAL PAIN MEDS. DR. ALTMAN NOTIFIED. NO NEW ORDERS. PT. VITALS STABLE AND MORNING MEDS GIVEN. PT. DENIES FURTHER NEED AND LEFT RESTING IN BED WITH CALL LIGHT IN REACH.
--- NOTE | 2020-08-30 10:56 | NUR ---
THIS RN TO ROOM WITH [facility]AO FOR ABX INJECTION. INJECTIONS GIVEN BY KELSIE GUIDRY. PT REPORTS / ONGOING PAIN IN ABDOMEN. MD AWARE, NO NEW ORDERS AT THIS TIME. PT AWAITING ARRIVAL OF FAMILY FOR DISCHARGE. NO ADDITIONAL REQUESTS OR COMPLAINTS. CALL LIGHT WITHIN REACH.
--- NOTE | 2020-08-30 11:30 | NUR ---
PATIENT DISCHARGED HOME. VITAL SIGNS STABLE. DISCHARGE INSTRUCTIONS REVIEWED AND ALL QUESTIONS ANSWERED. PT. LEFT BY WHEELCHAIR WITH MOTHER TO CAR. LEFT WITH ALL BELONGINGS.
[2020-10-23] MEDS ORDERED: FLUVOXAMINE MAL50 MG PO (09:52)
[2020-11-13] MEDS ORDERED: DOXEPIN HCL3 MG PO (11:15)
== END 2020-08-30 11:29 | disposition home or self-care (01) ==
LOC: ED 14:26 → MS 14:27
PROVIDERS: ADMIT Internal Medicine; ATTEND Internal Medicine
DX: N39.0 Urinary tract infection, site not specified (principal); B96.20 Unspecified Escherichia coli [E. coli] as the cause of diseases classified elsewhere; I95.1 Orthostatic hypotension; E87.6 Hypokalemia; E83.42 Hypomagnesemia; K43.9 Ventral hernia without obstruction or gangrene; G43.909 Migraine, unspecified, not intractable, without status migrainosus; E66.9 Obesity, unspecified; F41.9 Anxiety disorder, unspecified; Z98.84 Bariatric surgery status; Z86.73 Personal history of transient ischemic attack (TIA), and cerebral infarction without residual deficits; Z86.718 Personal history of other venous thrombosis and embolism; Z86.711 Personal history of pulmonary embolism; Z88.8 Allergy status to other drugs, medicaments and biological substances; Z88.0 Allergy status to penicillin; Z88.6 Allergy status to analgesic agent; Z96.0 Presence of urogenital implants; Z90.49 Acquired absence of other specified parts of digestive tract; Z79.890 Hormone replacement therapy; Z79.01 Long term (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; Z79.899 Other long term (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; Z20.822 Contact with and (suspected) exposure to COVID-19
CPT/HCPCS: 36415; 51701; 74176; 80048; 80053; 81001; 83735; 85025; 85610; 86850; 86900; 86901; 87077; 87088; 87186; 93005; 93010; 96372; 96375; 96376; 97116; 97162; 97165; 97535; 99285-25; C9113; C9803; G0378; J0696; J1170; J2060; J2270; J2765; J3480; J7030; J7120; U0003

== ENCOUNTER 2020-09-17 19:27 | Emergency (ER) | payer OTHER ==
[~2020-09-17] VITALS: Ht 147.3 cm; Wt 123.5 kg
[~2020-09-17 19:27] MED LIST changes: +B-121000 MC2 PO; -B-12500 MC1 PO; +CHLORPROMAZINE200 MG PO; +LATUDA60 MG PO; +MULTI VITAMIN1 EACH PO; -MULTI-VITAMIN1 EAC1 PO; +VENTOLIN HFA18 GM INH; -VITAMIN C 500500 MG PO; +VITAMIN C500 M1 PO
--- OUTSIDE RECORDS SUMMARY | 2020-09-17 19:30 | XMS ---
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 Events No recent Security Events currently on file CRITERIA MET - Group Notification - 6 ED Visits in 6 Months - [facility] - Has Care Guidelines - PDMP - [facility] - 2 Visits in 30 Days CARE PROVIDERS Eagle Nino Community Health Worker 07/03/2019-Current PHONE: [phone] JONES DAVISON [facility] 03/27/2020-Current PHONE: [phone] JONES DAVISON Dentist: Food Service Assistant 05/23/2019-Current PHONE: [phone] Rob Tilley Senior Cost Accountant/Telegraph Service Rater 08/27/2020-Current PHONE: [phone] CONCETTA UPTON Internal Medicine: Pulmonary Disease 08/23/2018-Current PHONE: Unknown Guidelines Source: [facility] - [place] Guidelines Date: 09/16/2019 Care Coordination: Receives mental health services with [facility].\T\nbsp; Please contact [facility] regarding mental health concerns. [facility] Office: [phone], [place] Office: [phone].\T\nbsp; [facility] Crisis: [phone]. Care History Medical/Surgical 08/07/2020 [facility] - PATIENT HAS AN APT WITH DR DAVISON 08/13/20- PCP HAS RECEIVED RECENT ED VISIT RECORD FROM 08/06/20 ED VISIT. 03/27/2020 [facility] - CHW CONTACTED PATIENT- PATIENT STATED SHE IS STILL EXPERIENCING ABDOMINAL PAIN AND WILL BE CONTACTING DR KISER OFFICE THIS AM. - PATIENT WAS LAST SEEN BY PCP ON 03/07/20 FOR ER FOLLOW UP. - PATIENT STATED ALL ABDOMINAL PAIN/SYMPTOMS WILL BE FOLLOWED UP BY DR WEBBER AND OR DR TIWARI. 03/26/2020 [facility] - DR WEBBER KNOWS THIS PATIENT WELL AND RECOMMENDED PATIENT BE SEEN BY DR TIWARI AT [facility]- A REFERRAL HAS BEEN GENERATED AND CT IMAGES SENT. E.D. VISIT COUNT (12 MO.) 11 [place] Zamud[place] TOTAL 11 NOTE: Visits indicate total known visits. ED/UCC VISIT TRACKING (12 MO.) 09/17/2020 19:[address] 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 - Allergy status to analgesic agent 07/28/2020 18:24 [place] TYPE: Emergency COMPLAINT: - DIZZINESS 04/17/2020 11:06 [place] TYPE: Emergency COMPLAINT: - POSS BLOOD CLOT DIAGNOSES: - Allergy status to other antibiotic agents - Allergy status to other drugs, medicaments and biological substances - Other chcf (current) drug therapy - Allergy status to analgesic agent - Anxiety disorder, unspecified - Migraine, unspecified, not intractable, without status migrainosus - Obesity, unspecified - Dorsalgia, unspecified - Allergy status to penicillin - Chronic sinusitis, unspecified 03/26/2020 21:10 [facility] [place] TYPE: Emergency COMPLAINT: - ABDOMINAL PAIN DIAGNOSES: - Epigastric pain - Other chcf (current) drug therapy [...] biological substances - Obesity, unspecified - Other chcf (current) drug therapy - Unspecified abdominal pain [...] to other viral communicable diseases - Other chcf (current) drug therapy - Allergy status to penicillin - Anxiety disorder, unspecified 12/19/2019 09:57 [place] TYPE: Emergency COMPLAINT: - EYE PAIN NON INJURY DIAGNOSES: - Zoster ocular disease, 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 - Ocular pain, right eye - Migraine, unspecified, not intractable, without status migrainosus - Anxiety disorder, unspecified - Other superintendent terminal (current) drug therapy - Allergy status to other drugs, medicaments and biological substances - Allergy status to penicillin 12/02/2019 12:02 [place] TYPE: Emergency COMPLAINT: - STOMACH PAIN,BLOODY STOOL DIAGNOSES: - Anxiety disorder, unspecified - Allergy status to other drugs, medicaments and biological substances - Allergy status to other antibiotic agents - Other chcf (current) drug therapy - Hypokalemia - Constipation, unspecified - Unspecified abdominal pain - Migraine, unspecified, not intractable, without status migrainosus - 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 coli] as the cause of diseases classified elsewhere - Acquired absence of other specified parts of digestive tract - Bariatric surgery status - Personal history of transient ischemic attack (TIA), and cerebral infarction without residual deficits - Unspecified abdominal pain - Obesity, unspecified - Personal history of other venous thrombosis and embolism - Hormone replacement therapy - Anxiety disorder, unspecified - Presence of urogenital implants - Other superintendent terminal (current) drug therapy - Allergy status to other drugs, medicaments and biological substances - Migraine, unspecified, not intractable, without status migrainosus - Personal history of pulmonary embolism - Allergy status to analgesic agent - 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 - Ventral hernia without obstruction or gangrene - Urinary tract infection, site not specified - Hypomagnesemia - Orthostatic hypotension - Contact with and (suspected) exposure to other viral communicable diseases - Allergy status to penicillin 07/28/2020 18:25 [place] TYPE: Observation [...] of other venous thrombosis and embolism - [facility] (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 - Chronic or unspecified gastric ulcer with hemorrhage - Body mass index [BMI] 50.0-59.9, adult - Body mass index [BMI] 50.0-59.9, adult - Encounter for screening for other viral diseases - Hypomagnesemia - Abnormal electrocardiogram [ECG] [EKG] [email or web address]
== END 2020-09-17 23:09 | disposition home or self-care (01) ==
LOC: ED 19:27
DX: R10.31 Right lower quadrant pain (principal); G89.29 Other chronic pain; R55 Syncope and collapse; K43.9 Ventral hernia without obstruction or gangrene; G43.909 Migraine, unspecified, not intractable, without status migrainosus; Z88.8 Allergy status to other drugs, medicaments and biological substances; Z88.0 Allergy status to penicillin; Z88.6 Allergy status to analgesic agent; Z79.899 Other long term (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; Z79.01 Long term (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
CPT/HCPCS: 74177; 80053; 81001; 83690; 84703; 85025; 99284-25; J1170; J2550; J7030; Q9967

== ENCOUNTER 2020-12-22 16:51 | Emergency (ER) | payer OTHER ==
[~2020-12-22] VITALS: Ht 147.3 cm; Wt 127.5 kg
[~2020-12-22 16:51] MED LIST changes: -B-121000 MC2 PO; +B-12500 MC1 PO; +DOXEPIN HCL3 MG PO; +FLUVOXAMINE MAL50 MG PO; -MULTI VITAMIN1 EACH PO; +MULTI-VITAMIN1 EAC1 PO; +VITAMIN C 500500 MG PO; -VITAMIN C500 M1 PO
--- OUTSIDE RECORDS SUMMARY | 2020-12-22 16:54 | XMS ---
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 ROMERO Security Collar Sewer Events No recent Security Events currently on file CRITERIA MET - Group Notification - [facility] - Has Care Guidelines - PDMP CARE PROVIDERS Eagle Nino Community Health Worker 07/03/2019-Current PHONE: [phone] JONES DAVISON [facility] 03/27/2020-Current PHONE: [phone] JONES DAVISON Dentist: Pullman Car Repairer 05/23/2019-Current PHONE: [phone] Rob Tilley Wiring Mechanic/Light Technician 08/27/2020-Current PHONE: [phone] CON[facility] Internal Medicine: Pulmonary Disease 08/23/2018-Current PHONE: Unknown Guidelines Source: [facility] [place] Guidelines Date: 09/16/2019 Care Coordination: Receives mental health services with [facility].\T\nbsp; Please contact [facility] regarding mental health concerns. [place] Office: , [place] Office: [phone].\T\nbsp; [facility] Crisis: [phone]. Care History Medical/Surgical 08/07/2020 [facility] - PATIENT HAS AN APT WITH DR DAVISON 08/13/20- PCP HAS RECEIVED RECENT ED VISIT RECORD FROM 08/06/20 ED VISIT. 03/27/2020 [facility] - CHW CONTACTED [...] IMAGES SENT. E.D. VISIT COUNT (12 MO.) [address] [facility] [address] [facility] TOTAL 9 NOTE: Visits indicate total known visits. 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 [place] TYPE: Emergency COMPLAINT: - ABD PAIN/WEAKNESS 08/06/2020 20:27 [facility] 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 [place] TYPE: Emergency COMPLAINT: - DIZZINESS 04/17/2020 11:06 [facility] [place] TYPE: Emergency COMPLAINT: - POSS BLOOD CLOT DIAGNOSES: - Allergy status to other antibiotic agents - Allergy status to other drugs, medicaments and biological substances - Other shelter (current) drug therapy - Allergy status to analgesic agent - Anxiety disorder, unspecified - Migraine, unspecified, not intractable, without status migrainosus - Obesity, unspecified - Dorsalgia, unspecified - Allergy status to penicillin - Chronic sinusitis, unspecified 03/26/2020 21:[address] [facility] [place] TYPE: Emergency COMPLAINT: - ABDOMINAL PAIN DIAGNOSES: - Epigastric pain - Other shelter (current) drug therapy - Allergy status to other antibiotic agents - Migraine, unspecified, not intractable, without status migrainosus - Anxiety disorder, unspecified - Allergy status to other drugs, medicaments and biological substances - Epigastric pain - Allergy status to penicillin 03/23/2020 16:14 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 - Unspecified abdominal pain [...] to other viral communicable diseases - Other shelter (current) drug therapy - Allergy status to penicillin - Anxiety disorder, unspecified INPATIENT VISIT TRACKING (12 MO.) 08/27/2020 14:27 [...] - Presence of urogenital implants - 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 [place] TYPE: Observation COMPLAINT: - ACUTE GI [...] of other venous thrombosis and embolism - termite control technician (current) use of anticoagulants - Chronic or unspecified gastric ulcer with hemorrhage - Body mass index [BMI] 50.0-59.9, adult - Body mass index [BMI] 50.0-59.9, adult - Encounter for screening for other viral diseases - Hypomagnesemia - Abnormal electrocardiogram [ECG] [EKG] [email or web address]
[2020-12-22] MEDS ORDERED: GABAPENTIN100 MG PO (17:03)
[2020-12-22] MEDS ORDERED: OXYCODONE-ACET1 EAC3 PO (17:03)
[2020-12-22] MEDS ORDERED: DULOXETINE HCL30 MG PO (17:04)
[2020-12-22] MEDS ORDERED: METFORMIN HCL500 MG PO (17:04)
[2020-12-22] MEDS ORDERED: PRAZOSIN HCL5 MG PO (17:04)
[2020-12-22] MEDS ORDERED: CEPHALEXIN500 M1 PO (19:54)
--- NOTE | 2020-12-23 14:39 | EKG ---
[facility] [address] [facility] [place], [place] [address] Signed Normal sinus rhythm Rightward axis Septal infarct , age undetermined Abnormal ECG When compared with ECG of 27-AUG-2020 16:21, No significant change was found Confirmed by JACK MANNING DO ([id number]) on 12/23/2020 2:39:31 PM Electronically Signed By: JACK MANNING DO 12/23/20 1439 PATIENT NAME: DYLAN ROMERO Electrocardiogram DATE OF : 79 PHYSICIAN: JACK MANNING DO REPORT #: [id number] REPORT IS CONFIDENTIAL AND NOT TO BE RELEASED WITHOUT AUTHORIZATION
== END 2020-12-22 20:11 | disposition home or self-care (01) ==
LOC: ED 16:51
DX: N39.0 Urinary tract infection, site not specified (principal); Z79.01 Long term (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; E66.9 Obesity, unspecified; G43.909 Migraine, unspecified, not intractable, without status migrainosus; Z88.8 Allergy status to other drugs, medicaments and biological substances; Z88.0 Allergy status to penicillin; Z88.6 Allergy status to analgesic agent; Z79.84 Long term (current) use of oral hypoglycemic drugs; Z79.899 Other long term (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; Z79.891 Long term (current) use of opiate analgesic
CPT/HCPCS: 71045; 73502; 73560; 73610; 80053; 81001; 85025; 85610; 93005; 93010; 96374; 96376; 99285-25; J1170; J7040

== ENCOUNTER 2020-12-23 15:03 | Emergency (ER) | payer OTHER ==
[~2020-12-23] VITALS: Ht 147.3 cm; Wt 127.5 kg
[~2020-12-23 15:03] MED LIST changes: +CEPHALEXIN500 M1 PO; +DULOXETINE HCL30 MG PO; +GABAPENTIN100 MG PO; +METFORMIN HCL500 MG PO; +PRAZOSIN HCL5 MG PO
--- OUTSIDE RECORDS SUMMARY | 2020-12-23 15:06 | XMS ---
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 Events No recent Security Events currently on file CRITERIA MET - Group Notification - 6 ED Visits in 6 Months - [facility] - Has Care Guidelines - PDMP - [facility] - 2 Visits in 30 Days CARE PROVIDERS Eagle Nino Community Health Worker 07/03/2019-Current PHONE: [phone] JONES DAVISON [facility] 03/27/2020-Current PHONE: [phone] JONES DAVISON Dentist: Bomb Technician 05/23/2019-Current PHONE: [phone] Rob Tilley Image Consultant/Internet Sales Representative 08/27/2020-Current PHONE: [phone] [facility] Internal Medicine: Pulmonary Disease 08/23/2018-Current PHONE: Unknown Guidelines Source: [facility] - [place] Guidelines Date: 09/16/2019 Care Coordination: Receives mental health services with [facility].\T\nbsp; Please contact [facility] concerns. [facility]: , [place] Office: [phone].\T\nbsp; [facility] Crisis: [phone]. Care History Medical/Surgical 08/07/2020 [facility] - PATIENT HAS AN APT WITH DR DAVISON 08/13/20- PCP HAS RECEIVED RECENT ED VISIT RECORD FROM 08/06/20 ED VISIT. 03/27/2020 [facility] - CHW CONTACTED PATIENT- PATIENT STATED SHE IS STILL EXPERIENCING ABDOMINAL PAIN AND WILL BE CONTACTING DR KISER OFFICE THIS AM. - PATIENT WAS LAST SEEN BY PCP ON 03/07/20 FOR ER FOLLOW UP. - PATIENT STATED ALL ABDOMINAL PAIN/SYMPTOMS WILL BE FOLLOWED UP BY DR WEBBER AND OR DR TIWARI. 03/26/2020 [facility] - DR WEBBER KNOWS THIS PATIENT WELL AND RECOMMENDED PATIENT BE SEEN BY DR TIWARI AT [facility]- A REFERRAL HAS BEEN GENERATED AND CT IMAGES SENT. E.D. VISIT COUNT (12 MO.) 10 [place] Zamudio TOTAL 10 NOTE: Visits indicate total known visits. 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 - Allergy status to penicillin - Right lower quadrant pain - Other chronic pain - Allergy status to analgesic agent 08/27/2020 14:26 [facility] [place] TYPE: Emergency COMPLAINT: - ABD PAIN/WEAKNESS 08/06/2020 20:27 [facility] [place] TYPE: Emergency COMPLAINT: - WEAKNESS DIAGNOSES: - Migraine, unspecified, not intractable, without status migrainosus - Syncope and collapse - Weakness - Allergy status to other drugs, medicaments and biological substances - Other correction (current) drug therapy - Melena - Hypokalemia - Allergy status to penicillin - Personal history of other venous thrombosis and embolism - halfway (current) use of anticoagulants - Allergy status to analgesic agent 07/28/2020 18:24 [facility] [place] TYPE: Emergency COMPLAINT: - DIZZINESS 04/17/2020 11:06 [facility] [place] TYPE: Emergency COMPLAINT: - POSS BLOOD CLOT DIAGNOSES: - Allergy status to other antibiotic agents - Allergy status to other drugs, medicaments and biological substances - Other correction (current) drug therapy - Allergy status to analgesic agent - Anxiety disorder, unspecified - Migraine, unspecified, not intractable, without status migrainosus - Obesity, unspecified - Dorsalgia, unspecified - Allergy status to penicillin - Chronic sinusitis, unspecified 03/26/2020 21:10 [facility] [place] TYPE: Emergency COMPLAINT: - ABDOMINAL PAIN DIAGNOSES: - Epigastric pain - Other exterminator helper termite (current) drug [...] biological substances - Obesity, unspecified - Other correction (current) drug therapy - Unspecified abdominal pain [...] to other viral communicable diseases - Other exterminator helper termite (current) drug [...] - Presence of urogenital implants - Other exterminator helper termite (current) drug therapy - Allergy status to other drugs, medicaments and biological substances - Migraine, unspecified, not intractable, without status migrainosus - Personal history of pulmonary embolism - Allergy status to analgesic agent - ferry terminal agent (current) use of anticoagulants - Ventral hernia [...] of other venous thrombosis and embolism - halfway (current) use of anticoagulants - Chronic or unspecified gastric ulcer with hemorrhage - Body mass index [BMI] 50.0-59.9, adult - Body mass index [BMI] 50.0-59.9, adult - Encounter for screening for other viral diseases - Hypomagnesemia - Abnormal electrocardiogram [ECG] [EKG] [email or web address]
--- NOTE | 2020-12-24 13:01 | EKG ---
[facility] [address] [facility] [place] [address] Signed Sinus rhythm with occasional and consecutive premature ventricular complexes Septal infarct (cited on or before 22-DEC-2020) ST \T\ T wave abnormality, consider anterior ischemia Abnormal ECG When compared with ECG of 22-DEC-2020 17:00, premature ventricular complexes are now present ST now depressed in Anterior leads Confirmed by JACK MANNING DO ([id number]) on 12/24/2020 1:01:21 PM Electronically Signed By: JACK MANNING DO 12/24/20 1301 PATIENT NAME: DYLAN ROMERO Electrocardiogram DATE OF : 79 PHYSICIAN: JACK MANNING DO REPORT #: [id number] REPORT IS CONFIDENTIAL AND NOT TO BE RELEASED WITHOUT AUTHORIZATION
== END 2020-12-23 17:50 | disposition left against medical advice (07) ==
LOC: ED 15:03
DX: R55 Syncope and collapse (principal); S06.9X1A Unspecified intracranial injury with loss of consciousness of 30 minutes or less, initial encounter; S20.219A Contusion of unspecified front wall of thorax, initial encounter; W18.30XA Fall on same level, unspecified, initial encounter; E66.9 Obesity, unspecified; G43.909 Migraine, unspecified, not intractable, without status migrainosus; Z88.8 Allergy status to other drugs, medicaments and biological substances; Z88.0 Allergy status to penicillin; Z88.6 Allergy status to analgesic agent; Z79.899 Other long term (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; Z79.891 Long term (current) use of opiate analgesic; Z79.01 Long term (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
CPT/HCPCS: 70450; 71045; 80053; 83735; 84484; 84703; 85025; 93005; 93010; 99285-25

== ENCOUNTER 2021-02-14 17:29 | Observation (INO) | payer OTHER ==
[~2021-02-14] VITALS: Ht 147.3 cm; Wt 129.0 kg
--- OUTSIDE RECORDS SUMMARY | 2021-02-14 17:32 | XMS ---
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 ROMERO [facility] Spiritual Care Coordinator Events 1 event(s) in the past 18 months Most recent security events: Elopement at [facility] 12/23/2020 15:04 - Other Details: PATIENT LEFT AMA. CRITERIA MET - [facility] - Has Care Guidelines - PDMP - Group Notification CARE PROVIDERS [facility] Community Health Worker 07/03/2019-Current PHONE: [phone] JONES DAVISON [facility] 03/27/2020-Current PHONE: [phone] JONES DAVISON Dentist: [place] 05/23/2019-Current PHONE: [phone] Rob Tilley Legal Practice Manager/Fourth Officer 01/24/2021-Current PHONE: [phone] CONCETTA UPTON Internal Medicine: Pulmonary Disease 08/23/2018-Current PHONE: Unknown Guidelines Source: [facility] [place] Guidelines Date: 09/16/2019 Care Coordination: Receives mental health services with [facility].\T\nbsp; Please contact [facility] regarding mental health concerns. Sarah/[place] Office: , [place] Office: [phone].\T\[facility]; [facility] Crisis: [phone]. Care History Medical/Surgical 08/07/2020 [facility] - PATIENT HAS AN APT WITH DR DAVISON 08/13/20- PCP HAS RECEIVED RECENT ED VISIT RECORD FROM 08/06/20 ED VISIT. 03/27/2020 [facility] - CHW [...] PATIENT BE SEEN BY DR TIWARI AT [facility]- A REFERRAL HAS BEEN GENERATED AND CT IMAGES SENT. E.D. VISIT COUNT (12 MO.) 11 HADLEY Zamudio TOTAL 11 NOTE: Visits indicate total known visits. ED/UCC VISIT TRACKING (12 MO.) 02/14/2021 17:29 HADLEY Torres [place] TYPE: Emergency COMPLAINT: - SYNCOPE 12/23/2020 15:04 [facility] Torres [place] TYPE: Emergency COMPLAINT: - DIZZINESS DIAGNOSES: - Obesity, unspecified - care home (current) use of anticoagulants - Allergy status to analgesic agent - Allergy status to other drugs, medicaments and biological substances - technician terminal and repeater (current) use of opiate analgesic - Unspecified intracranial injury with loss of consciousness of 30 minutes or less, initial encounter - Contusion of unspecified front wall of thorax, initial encounter - Fall on same level, unspecified, initial encounter - Allergy status to penicillin - Migraine, unspecified, not intractable, without status migrainosus - Syncope and collapse - Other group home (current) drug therapy 12/22/2020 16:52 HAD[facility] Torres [place] TYPE: Emergency COMPLAINT: - DIZZINESS, R KNEE PAIN DIAGNOSES: - Allergy status to analgesic agent - Allergy status to other drugs, medicaments and biological substances - Allergy status to penicillin - care home (current) use of oral hypoglycemic drugs - Dizziness and giddiness - care home (current) use of opiate analgesic - Urinary tract infection, site not specified - Obesity, unspecified - Other exterminator (current) drug therapy - Migraine, unspecified, not intractable, without status migrainosus - technician terminal and repeater (current) use of anticoagulants 09/17/2020 19:28 [facility] Torres [place] TYPE: Emergency COMPLAINT: - ABD PAIN DIAGNOSES: - Migraine, unspecified, not intractable, without status migrainosus - Allergy status to other drugs, medicaments and biological substances - Ventral hernia without obstruction or gangrene - Other exterminator (current) drug therapy - Syncope and collapse - care home (current) use of anticoagulants - Allergy [...] drugs, medicaments and biological substances - Other exterminator (current) drug therapy - Melena - Hypokalemia - Allergy status to penicillin - Personal history of other venous thrombosis and embolism - care home (current) use of anticoagulants - Allergy status to analgesic agent 07/28/2020 18:24 [facility] Torres [place] TYPE: Emergency COMPLAINT: - DIZZINESS 04/17/2020 11:06 HADLEY Torres [place] TYPE: Emergency COMPLAINT: - POSS BLOOD CLOT DIAGNOSES: - Allergy status to other antibiotic agents - Allergy status to other drugs, medicaments and biological substances - Other group home (current) drug therapy - Allergy status to analgesic agent - Anxiety disorder, unspecified - Migraine, unspecified, not intractable, without status migrainosus - Obesity, unspecified - Dorsalgia, unspecified - Allergy status to penicillin - Chronic sinusitis, unspecified 03/26/2020 21:10 HAD[facility] Torres [place] TYPE: Emergency COMPLAINT: - ABDOMINAL PAIN DIAGNOSES: - Epigastric pain - Other group home (current) drug therapy [...] biological substances - Obesity, unspecified - Other exterminator (current) drug therapy - Unspecified abdominal pain [...] to other viral communicable diseases - Other group home (current) drug therapy [...] Presence of urogenital implants - Other exterminator (current) drug therapy - Allergy status to other drugs, medicaments and biological substances - Migraine, unspecified, not intractable, without status migrainosus - Personal history of pulmonary embolism - Allergy status to analgesic agent - technician terminal and repeater (current) use of anticoagulants - Ventral hernia [...] of other venous thrombosis and embolism - care home (current) use of anticoagulants - Chronic or unspecified gastric ulcer with hemorrhage - Body mass index [BMI] 50.0-59.9, adult - Body mass index [BMI] 50.0-59.9, adult - Encounter for screening for other viral diseases - Hypomagnesemia - Abnormal electrocardiogram [ECG] [EKG] [email or web address]
[2021-02-14] MEDS ORDERED: LEVOFLOXACIN500 MG PO (17:44)
--- NOTE | 2021-02-14 18:34 | EKG ---
[facility] [address] [place] [address] Signed Normal sinus rhythm Prolonged QT Abnormal ECG When compared with ECG of 23-DEC-2020 15:13, premature ventricular complexes are no longer present Criteria for Septal infarct are no longer present T wave inversion no longer evident in Anterior leads Confirmed by MARU FITZGERALD MD ([id number]) on 02/14/2021 6:34:07 PM Electronically Signed By: MARU FITZGERALD MD 02/14/21 1834 PATIENT NAME: DYLAN ROMERO Electrocardiogram DATE OF : 79 PHYSICIAN: MARU FITZGERALD MD REPORT #: [id number] REPORT IS CONFIDENTIAL AND NOT TO BE RELEASED WITHOUT AUTHORIZATION
--- NOTE | 2021-02-14 22:45 | NUR ---
PT ARRIVED VIA STRETCHER ON TRANSITIONAL STUDIES INSTRUCTOR WITH PSYCHIATRIC NURSING ASSISTANT. PT ABLE TO SCOOT SELF FROM STRETCHER WITH ONLY MINIMAL ASSIST. ASSESSMENT COMPLETED. PT DENIES DIZZINESS OR FEELING SHAKY AT THIS TIME. ALERT AND ORIENTED, ANSWERS ALL ASSESSMENT QUESTIONS. MEDICATION ADMINISTRATION COMPLETED. DISCUSSED PLAN OF CARE FOR EVENING WITH PATIENT. IV FLUIDS INFUSING. CALL LIGHT WITHIN REACH. WILL CONTINUE TO MONITOR.
--- NOTE | 2021-02-14 23:43 | NUR ---
PT SATURATIONS DROPPED TO 88 PERCENT ON 2L NC WHILE SLEEPING. SUPPLEMENTAL OXYGEN INCREASED TO 4 L NC AT THIS TIME. SPO2 UP TO 92 PERCENT. WILL CONTINUE TO CLOSELY MONITOR.
--- NOTE | 2021-02-15 01:30 | NUR ---
PT RESTING WITH EYES CLOSED, BREATHING EVEN AND UNLABORED. RR = 18. SPO2 =93% CALL LIGHT WITHIN REACH. WILL CONTINUE TO MONITOR.
--- NOTE | 2021-02-15 03:07 | NUR ---
PT UP TO USE BSC. STEADY ON FEET BUT DOES REPORT FEELING DIZZY. HEART RATE INTO THE 90S WITH EXERTION. O2 SATURATIONS MAINTAINED ABOVE 90 WITH ACTIVITY. PT BACK IN BED, ASSESSMENT COMPLETED. CALL LIGHT WITHIN REACH. DENIES FURTHER NEEDS AT THIS TIME.
--- NOTE | 2021-02-15 05:42 | NUR ---
LAB IN ROOM AT THIS TIME TO DRAW BLOOD.
--- NOTE | 2021-02-15 06:48 | NUR ---
PT REQUESTING PAIN MEDICATION FOR 8 BACK PAIN. PRN MEDICATION GIVEN AT THIS TIME. BREAKFAST ORDERED. NO FURTHER NEEDS
--- NOTE | 2021-02-15 07:55 | NUR ---
PT SLEEPING LIGHTLY, WAKES EASILY WITH NASAL CANULA ADJUSTMENT. PT ABLE TO TAKE THYROID PILL EASILY. PT IS COOPERATIVE AND POLITE, ALERT AND ORIENTED X4 WHEN AWAKE.
[2021-02-15] MEDS ORDERED: PHENTERMINE H37.5 M1 PO (08:09)
[2021-02-15] MEDS ORDERED: PSEUDOEPHEDRIN120 MG PO (08:14)
[2021-02-15] MEDS ORDERED: ZANAFLEX4 MG PO (08:23)
[2021-02-15] MEDS ORDERED: VITAMIN D21250 MCG PO (08:48)
--- NOTE | 2021-02-15 12:00 | NUR ---
TRIED TO VISIT PT-PT IS APPARENTLY VERY BUSY WITH A PHONE CONVERSATION. DID NOT DISTURB. WILL FOLLOW
--- NOTE | 2021-02-15 12:22 | NUR ---
PT TAKEN OFF O2 VIA NC AND ON ROOM AIR. PT SATS ARE 89-95% ON ROOM AIR.
[2021-02-15] MEDS ORDERED: SUCRALFATE1 GM PO (13:09)
[2021-02-15] MEDS ORDERED: LIDOCAINE HCL100 ML MT (13:13)
--- NOTE | 2021-02-15 13:14 | NUR ---
MED REC COMPLETE
--- NOTE | 2021-02-15 14:27 | NUR ---
DID A SET OF ORTHOSTATIC BLOOD PRESSURES, PT WAS POSITIVE. AMBULATED TO IN THE ROOM TO THE COMMODE WITH A WALKER AND TWO PERSON STANDBY ASSIST. PT ABLE TO VOID AND THEN GOES BACK TO BED. PT FACE BECOMES MORE PALE WITH ACTIVITY, PT REPORTS NAUSEA WELL FEELING WEAK. CALLED MD TO UPDATE ON PT STATUS.
--- NOTE | 2021-02-15 15:00 | NUR ---
Lives in a Duplex with mom upstairs and she lives down stairs. She is currently staying with her mom. States she has been getting lighthead ed and awakening on the floor. She is using a walker due to her light headedness. Financially she is ok and she does not drive, but her mom drives her. She has foods stamps and services through [email or web address]. Plans on dc to home to stay with mom when discharged.
--- NOTE | 2021-02-15 15:00 | NUR ---
PT GIVEN 12.5 MG IV PHENERGAN FOR NAUSEA PER NEW ORDER FROM
--- NOTE | 2021-02-15 19:15 | NUR ---
SHIFT REPORT FROM NURSE KEILY. PT IN BED ALERT AND TALKATIVE. DENIES NEEDS AT THIS TIME. CALL LIGHT WITHIN REACH.
--- NOTE | 2021-02-15 19:29 | NUR ---
pt moved from 128 to room 109, all pt belongings went with pt. full report given to Miriam IGLESIAS. pt is alert and oriented x4 well aware of the plan. all pt kits meds and chart also went to med/surg.
--- NOTE | 2021-02-15 20:08 | NUR ---
pt UP TO BSC TO VOID. 200ML CONCENTRATED URINE EMPTIED. PT RETURNED TO BED AND NOTED THAT SHE WAS DIZZY WHILE STANDING. CALL LIGHT WITHIN REACH. NO FURTHER NEEDS AT THIS TIME.
--- NOTE | 2021-02-15 20:29 | NUR ---
PT CALLED ASKING FOR ICEWATER AND A SNACK. SHE DENIES FURTHER NEEDS AT THIS TIME, CALL LIGHT IS CLOSE.
--- NOTE | 2021-02-15 21:15 | NUR ---
IN ROOM FOR EVENING ASSESSMENT AND MEDS. PT REPORTS PAIN 7/10 "ALL OVER". PRN PAIN MEDS ARE NOT DUE AT THIS TIME. WILL CALL DR FITZGERALD TO REQUEST NEW ORDERS. VSS. PT IS ON ROOM AIR, SPO2 94%. CBG 147 REQUIRING 1UNIT SS INSULIN. 3 SMALL OPEN AREAS WITHIN REDDENED AREA UNDER PANUS. DESENEX POWDER USED UNDER ENTIRE PANUS AND GROIN FOLDS. ASSESSMENT OTHERWISE WNL. IVF D/C'D PER ORDER. PT REQUESTS EVENING SNACK. LOW CARB PROTIEN PACK PROVIDED. CALL LIGHT WIHTIN REACH. NO FURTHER CARE NEEDS AT THIS TIME.
--- NOTE | 2021-02-15 21:30 | NUR ---
CALL BACK FROM DR FITZGERALD. NO CHANGES AT THIS TIME TO PT'S PRN PAIN MEDICATION. THIS RN OFFERED PT A WARM PACK OR REPOSITIONING. PT DECLINES AT THIS TIME.
--- NOTE | 2021-02-15 21:44 | NUR ---
COSIGNED INSLUINE. PT DENIES NEEDS AT THIS TIME. CALL LIGHT IS CLOSE.
--- NOTE | 2021-02-16 00:05 | NUR ---
CHECKED ON PT. PT APPEARS TO BE SLEEPING WITH EYES CLOSED, EVEN BREATHING NOTED. NO APPARENT SIGNS OF DISTRESS.
--- NOTE | 2021-02-16 02:43 | NUR ---
CHECKED ON PT; PT SLEEPING. EVEN UNLABORED BREATHING NOTED. CALL LIGHT WITHIN REACH.
--- NOTE | 2021-02-16 06:15 | NUR ---
IN ROOM FOR MORNING ASSESSMENT, ORTHOSTATIC BP, MEDS. PERFORMED ORTHOSTATIC VITALS WHICH DID HAVE POSITIVE RESULT. LAYING WNL, STANDING 1MIN BP WENT UP SLIGHTLY, HR TACHYCARDIC; 3 MIN BP DROPPED, HR INCREASED TACHY. SEE VITALS REVIEW IN CHART. PT TO BSC TO URINATE. PT REQUESTS PRN ALPRAZOLAM ALONG WITH MORNING MEDS AND PRN PERCOCET. ASSESSMENT OTHERWISE WNL. BREAKFAST ORDER PLACED. CALL LIGHT WITHIN REACH.
--- NOTE | 2021-02-16 07:46 | NUR ---
REPORT RECEIVED FROM KELSIE DIAZ. PT RESTING IN BED, WATCHING TV. PT REPORTS MILD DIZZINESS AND 7/10 PAIN IN BACK, LEGS AND ABDOMEN. PT REPORTS THIS IS HER BASELINE PAIN. MEDICATION RECIENTLY GIVEN. PT DENIES ADDITIONAL REQUESTS OR COMPLAINTS AT THIS TIME. CALL LIGHT WITHIN REACH. BED RAILS UP.
--- NOTE | 2021-02-16 08:05 | NUR ---
pt declined wanting to get up to recliner at this time for breakfast.
--- NOTE | 2021-02-16 08:35 | NUR ---
MORNING ASSESSMENT AND MEDICATION DUE. PT RESTING IN BED WITH HEAD OF BED ELEVATED TO 35 DEGREES. PT FINISHED WITH BREAKFAST, ABLE TO EAT ~25%. PT REPORTS PAIN IS NOW 6/10 IN BACK AND LEGS. PT REPORTS SHE RECENTLY HAD PAIN MEDICATION AND HER PAIN LEVEL IS "FINE RIGHT NOW." PT DENEIS NAUSEA. IV ASSESSED, WNL, NO S/S OF PHELBITIS. ALCOHOL CAP APPLIED. PT ALERT AND OREINTED, CALM AND COOPERATIVE AT THIS TIME. PT REPORTS DIZZINESS AT TIMES AND REPORTS "FEELING TIRED." PT DECLINES TIME UP TO CHAIR STATING SHE WOULD LIKE TO REST THIS MORNING, PT AGREES TO GET UP LATER THIS MORNING. VITAL SINGS FROM EARLIER THIS MORNING NOTED TO BE POSITIVE. WILL REASSESS ORTHOSTATIC VITALS SIGNS LATER THIS SHIFT. PT DEMONSTRATES USE OF I.S. X3 REACHING 2000ML. RT TO BEDSIDE TO CHECK IN WITH PT AND PROVIDE EDUCATION. BOWEL TONES ACTIVE. PT DENIES CONSTIPATION AT THIS TIME. AREA UNDER PANNUS CAKED WITH MICONAZOLE POWDER. LARGE CHUNCKS PRESENT. SKIN TEARS NOTED X2 AT MIDLINE UNDER PANNUS AND X1 RIGHT MIDCLAVICULAR LINE UNDER PANNUS. INTACT WITH NO DRAINAGE NOTED. PT REPORTS SORENESS IN THESE AREAS. MICONAZOLE POWDER HELD AT THIS TIME, WILL REAPPLY AFTER SHOWER THIS SHIFT. PT DENIES ADDITIONAL REQUESTS OR COMPLAINTS AT THIS TIME. CALL LIGHT WITHIN REACH. BED RAILS UP.
--- NOTE | 2021-02-16 10:33 | NUR ---
THIS RN TO ROOM TO CHECK ON PT. PT REPORTS WALKING WITH PHYSICAL THERAY AND STATES "IT WENT REALLY WELL." PT ANTICIPATING GOING HOME TODAY. PT ENCOURAGED TO GET UP TO SHOWER. PT AGREES. PT UP TO SHOWER WITH HARNESS BRUSHER, SHOWER CHAIR IN USE. PT REPROTS 6/10 BACK AND LEG PAIN AND STATES "IT'S ACTUALLY BETTER NOW, IT FELT BETTER TO GET UP AND STRETCH." PT STATES "IT'S A LOW 6." NO ADDITIONAL REQUESTS OR COMPLAINTS. CALL LIGHT WITHIN REACH. HARNESS BRUSHER WITH PT IN SHOWER.
--- NOTE | 2021-02-16 10:55 | NUR ---
PATIENT UP TO SHOWER, SBA. PATIENT MOSTLY IND. IN SHOWER. NEW GOWN PROVIDED. AM CARE, ORAL CARE, SKIN CARE, SHAMPOO DONE. LINES CHANGED. PATIENT NOW SITTING ON EDGE OF BED BRUSHING HAIR. CALL LIGHT IN REACH. NO FURTHER NEEDS AT THIS TIME
--- NOTE | 2021-02-16 12:06 | NUR ---
LUNCH ARRIVED. THIS RN TO ROOM. PT RESTING IN BED WATCHING TV. PT REPORTS SHE FEELS "MUCH BETTER" AFTER HER SHOWER. BLOOD SUGAR TAKEN = 76. PT UP TO CHAIR WITH STAND BY ASSIST FOR LUNCH. PT REPORTS 6/10 PAIN IN BACK AND LEGS. SEE MAR FOR MEDICATION GIVEN. PT DENIES ADDITIONAL REQUESTS OR COMPLAINTS AT THIS TIME. CALL LIGHT WITHIN REACH.
--- NOTE | 2021-02-16 13:45 | NUR ---
THIS RN TO ROOM WITH MD FOR ROUNDS. MD STATES PT WILL BE SET TO DISCHARGE SOON. PT VERBALIZES UNDERSTANDING OF MEDICATION CHANGES AND REASONS FOR MEDICATION CHANGES. PT CONTINUES TO REPORTS 6/10 PAIN AT THIS TIME, DENIES NEED FOR ADDITIONAL PAIN MEDICATION. PT CALLS HER MOTHER FOR CLOTHING TO BE DELIVIERED. DIET 7-UP PROVIDED PER PT REQUEST. NO ADDITIONAL REQUESTS OR COMPLAINTS AT THIS TIME. CALL LIGHT WITHIN REACH.
[2021-02-16] MEDS ORDERED: MIDODRINE HCL5 MG PO (13:48)
--- NOTE | 2021-02-16 14:39 | NUR ---
IV TAKEN OUT UPON RN REQUEST. CATH INTACT AND LOOKED GOOD, RN NOTIFIED. VITALS AND I&O'S CHARTED. CALL LIGHT IN REACH. NO FURTHER NEEDS AT THIS TIME.
--- NOTE | 2021-02-16 15:44 | NUR ---
PT READY FOR DISCHARGE. PT DRESSED IN CLOTHES FROM HOME WITH ASSISTANCE FROM [employer]. VITAL SIGNS STABLE. IV DC'D BY [facility] GUILLEN. GAUZE AND TAPE APPLIED. DISCHRAGE INSTRUCTIONS REVEIWED WITH PT. PT VERBALIZES UNDERSTANDING OF INSTRUCTIONS, MEDICATION CHANGES, FOLLOW UP APPOINTMENTS, AND WHEN TO CALL THE DOCTOR. PHARMACIST TO BEDSIDE TO REVIEW MEDICAITONS WITH PT. SHORT TERM WEEKEND SUPPLY OF MEDICATIONS PROVIDED AND REVIEWED WIHT PT BY PHARMCIST. PT TRANSFERS SELF TO WHEELCHAIR. PT REPORTS CHRONIC 6/10 BACK PAIN, DENIES NAUSEA AND DIZZINESS. PT STATES HER QUESTIONS HAVE BEEN ANSWERED. PT AWAITING FINAL DOESES OF HOME MEDICATION SHORT TERM SUPPLY PRIOR TO LEAVING THE UNIT. CALL LIGHT WITHIN REACH.
--- NOTE | 2021-02-16 16:15 | NUR ---
JACOB, PHARMCIST, TO BEDSIDE WITH FINAL DOSES OF MEDICATIONS FOR PT TO TAKE HOME. PT VERBALIZES UNDERSTANDING AND STATES HER QUESTIONS HAVE BEEN ANSWERED. PT WHEELED FROM CLINIC BY REGIONAL EDUCATION MANAGER. NO ADDITIONAL REQUESTS OR CONCERNS.
== END 2021-02-16 16:15 | disposition home or self-care (01) ==
LOC: ED 17:29 → CCU 17:30 → MS 02-15 18:45
PROVIDERS: ADMIT Internal Medicine; ATTEND Internal Medicine
DX: I95.2 Hypotension due to drugs (principal); T46.5X5A Adverse effect of other antihypertensive drugs, initial encounter; T50.2X5A Adverse effect of carbonic-anhydrase inhibitors, benzothiadiazides and other diuretics, initial encounter; T44.6X5A Adverse effect of alpha-adrenoreceptor antagonists, initial encounter; F31.89 Other bipolar disorder; G89.4 Chronic pain syndrome; K21.9 Gastro-esophageal reflux disease without esophagitis; G43.909 Migraine, unspecified, not intractable, without status migrainosus; E03.9 Hypothyroidism, unspecified; I11.0 Hypertensive heart disease with heart failure; I50.812 Chronic right heart failure; G47.33 Obstructive sleep apnea (adult) (pediatric); G25.81 Restless legs syndrome; E66.9 Obesity, unspecified; Z98.61 Coronary angioplasty status; Z98.84 Bariatric surgery status; Z88.0 Allergy status to penicillin; Z88.8 Allergy status to other drugs, medicaments and biological substances; Z79.01 Long term (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; Z86.711 Personal history of pulmonary embolism; Z20.822 Contact with and (suspected) exposure to COVID-19
CPT/HCPCS: 51701; 71260; 80053; 81001; 83735; 84484; 85025; 85610; 93005; 93010; 94667; 94668; 94760; 96372; 97116; 97530; 99285-25; C9803; G0378; J1650; J1815; J2550; J7030; J7040; J7121; Q0161; U0003

== ENCOUNTER 2021-03-09 10:26 | Emergency (ER) | payer OTHER ==
[~2021-03-09] VITALS: Ht 147.3 cm; Wt 124.4 kg
[~2021-03-09 10:26] MED LIST changes: +LEVOFLOXACIN500 MG PO; +LIDOCAINE HCL100 ML MT; +MIDODRINE HCL5 MG PO; +PSEUDOEPHEDRIN120 MG PO; +VITAMIN D21250 MCG PO
--- OUTSIDE RECORDS SUMMARY | 2021-03-09 10:28 | XMS ---
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 ROMERO Security Tumbler Tender Events 1 event(s) in the past 18 months Most recent security events: Elopement at [facility] 12/23/2020 15:04 - Other Details: PATIENT LEFT AMA. CRITERIA MET - Group Notification - [facility] - Has Care Guidelines - [facility] - 2 Visits in 30 Days - PDMP CARE PROVIDERS Eagle Nino Community Health Worker 07/03/2019-Current PHONE: [phone] JONES DAVISON [facility] [place] 03/27/2020-Current PHONE: [phone] JONES DAVISON Dentist: Radio Board Operator 05/23/2019-Current PHONE: [phone] Rob Tilley Software Engineer/Coreroom Foundry Laborer 02/24/2021-Current PHONE: [phone] CONCETTA UPTON Internal Medicine: Pulmonary Disease 08/23/2018-Current PHONE: Unknown Guidelines Source: [facility] [employer] [facility] Guidelines Date: 09/16/2019 Care Coordination: Receives mental health services with [employer].\T\nbsp; Please contact [employer] regarding mental health concerns. [place] Office: , [place] Office: [phone].\T\nbsp; [employer] Crisis: [phone]. Care History Medical/Surgical 08/07/2020 [facility] - PATIENT HAS AN APT WITH DR DAVISON 08/13/20- PCP HAS RECEIVED RECENT ED VISIT RECORD FROM 08/06/20 ED VISIT. 03/27/2020 [facility] - CHW CONTACTED PATIENT- PATIENT STATED SHE IS STILL EXPERIENCING ABDOMINAL PAIN AND WILL BE CONTACTING DR KISER OFFICE THIS AM. - PATIENT WAS LAST SEEN BY PCP ON 03/07/20 FOR ER FOLLOW UP. - PATIENT STATED ALL ABDOMINAL PAIN/SYMPTOMS WILL BE FOLLOWED UP BY DR WEBBER AND OR DR TIWARI. 03/26/2020 [facility] - DR WEBBER KNOWS THIS PATIENT WELL AND RECOMMENDED PATIENT BE SEEN BY DR TIWARI AT [facility]- A REFERRAL HAS BEEN GENERATED AND CT IMAGES SENT. E.D. VISIT COUNT (12 MO.) [address] [facility] TOTAL 11 NOTE: Visits indicate total known visits. ED/UCC VISIT TRACKING (12 MO.) 03/09/2021 10:27 HADLEY Torres [place] TYPE: Emergency COMPLAINT: - DIZZINESS 02/14/2021 17:29 HADLEY Torres [place] TYPE: Emergency COMPLAINT: - SYNCOPE 12/23/2020 15:04 HADLEY Torres [place] TYPE: Emergency COMPLAINT: - DIZZINESS DIAGNOSES: - Obesity, unspecified - intermodal customer service (current) use of anticoagulants - Allergy status to analgesic agent - Allergy status to other drugs, medicaments and biological substances - intermodal customer service (current) use of opiate analgesic - Unspecified intracranial injury with loss of consciousness of 30 minutes or less, initial encounter - Contusion of unspecified front wall of thorax, initial encounter - Fall on same level, unspecified, initial encounter - Allergy status to penicillin - Migraine, unspecified, not intractable, without status migrainosus - Syncope and collapse - Other care home (current) drug therapy 12/22/2020 16:52 HADLEY Torres [place] TYPE: Emergency COMPLAINT: - DIZZINESS, R KNEE PAIN DIAGNOSES: - Allergy status to analgesic agent - Allergy status to other drugs, medicaments and biological substances - Allergy status to penicillin - intermodal customer service (current) use of oral hypoglycemic drugs - Dizziness and giddiness - intermodal customer service (current) use of opiate analgesic - Urinary tract infection, site not specified - Obesity, unspecified - Other care home (current) drug therapy - Migraine, unspecified, not intractable, without status migrainosus - intermodal customer service (current) use of anticoagulants 09/17/2020 19:28 HAD[facility] Torres [place] TYPE: Emergency COMPLAINT: - ABD PAIN DIAGNOSES: - Migraine, unspecified, not intractable, without status migrainosus - Allergy status to other drugs, medicaments and biological substances - Ventral hernia without obstruction or gangrene - Other terminal press operator (current) drug therapy - Syncope and collapse - long-term (current) use of anticoagulants - Allergy status [...] drugs, medicaments and biological substances - Other care home (current) drug therapy - Melena - Hypokalemia - Allergy status to penicillin - Personal history of other venous thrombosis and embolism - long-term (current) use of anticoagulants - Allergy status to analgesic agent 07/28/2020 18:24 HAD[facility] Torres [place] TYPE: Emergency COMPLAINT: - DIZZINESS 04/17/2020 11:06 HADLEY Torres [place] TYPE: Emergency COMPLAINT: - POSS BLOOD CLOT DIAGNOSES: - Allergy status to other antibiotic agents - Allergy status to other drugs, medicaments and biological substances - Other care home (current) drug therapy - Allergy status to analgesic agent - Anxiety disorder, unspecified - Migraine, unspecified, not intractable, without status migrainosus - Obesity, unspecified - Dorsalgia, unspecified - Allergy status to penicillin - Chronic sinusitis, unspecified 03/26/2020 21:10 HADLEY Torres [place] TYPE: Emergency COMPLAINT: - ABDOMINAL PAIN DIAGNOSES: - Epigastric pain - Other care home (current) drug [...] biological substances - Obesity, unspecified - Other terminal press operator (current) drug therapy - Unspecified abdominal pain - Allergy status to penicillin - Allergy status to other antibiotic agents INPATIENT VISIT TRACKING (12 MO.) 02/14/2021 17:30 HADLEY Torres [place] TYPE: Observation COMPLAINT: - SYNCOPE/ HYPOTENSION DIAGNOSES: - Chronic right heart failure - long-term (current) use of anticoagulants - Hypothyroidism, unspecified - Personal history of pulmonary embolism - Allergy status to penicillin - Migraine, unspecified, not intractable, without status migrainosus - Allergy status to other drugs, medicaments and biological substances - Adverse effect of alpha-adrenoreceptor antagonists, initial encounter - Hypotension due to drugs - Coronary angioplasty status - Obstructive sleep apnea (adult) (pediatric) - Hypertensive heart disease with heart failure - Chronic pain syndrome - Restless legs syndrome - Gastro-esophageal reflux disease without esophagitis - Adverse effect of carbonic-anhydrase inhibitors, benzothiadiazides and other diuretics, initial encounter - Bariatric surgery status - Adverse effect of other antihypertensive drugs, initial encounter - Obesity, unspecified - Other bipolar disorder 08/27/2020 14:27 HADLEY Torres [place] TYPE: Observation [...] - Presence of urogenital implants - Other care home (current) drug therapy - Allergy status to other drugs, medicaments and biological substances - Migraine, unspecified, not intractable, without status migrainosus - Personal history of pulmonary embolism - Allergy status to analgesic agent - long-term (current) use of anticoagulants - Ventral hernia [...] of other venous thrombosis and embolism - intermodal customer service (current) use of anticoagulants - Chronic or unspecified gastric ulcer with hemorrhage - Body mass index [BMI] 50.0-59.9, adult - Body mass index [BMI] 50.0-59.9, adult - Encounter for screening for other viral diseases - Hypomagnesemia - Abnormal electrocardiogram [ECG] [EKG] [email or web address]
--- NOTE | 2021-03-10 07:11 | EKG ---
[facility] [address] [place], [place] [address] Signed Normal sinus rhythm with sinus arrhythmia Normal ECG When compared with ECG of 14-FEB-2021 17:38, QT has shortened Confirmed by DUGLAS ALTMAN MD ([id number]) on 03/10/2021 7:10:50 AM Electronically Signed By: DUGLAS ALTMAN MD 03/10/21710 PATIENT NAME: DYLAN ROMERO Electrocardiogram DATE OF : 79 PHYSICIAN: DUGLAS ALTMAN MD REPORT #: [id number] REPORT IS CONFIDENTIAL AND NOT TO BE RELEASED WITHOUT AUTHORIZATION
== END 2021-03-09 17:35 | disposition home or self-care (01) ==
LOC: ED 10:26
DX: R07.9 Chest pain, unspecified (principal); J02.9 Acute pharyngitis, unspecified; Z20.822 Contact with and (suspected) exposure to COVID-19; E66.9 Obesity, unspecified; G43.909 Migraine, unspecified, not intractable, without status migrainosus; Z79.01 Long term (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; Z79.899 Other long term (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; Z79.891 Long term (current) use of opiate analgesic
CPT/HCPCS: 71045; 71260; 80053; 83735; 84484; 85025; 85610; 93005; 93010; 96375; 96376; 99285-25; A9270-GY; C9803; J1170; J2550; Q9967; U0003

== ENCOUNTER 2021-05-05 18:11 | Emergency (ER) | payer OTHER ==
[~2021-05-05] VITALS: Ht 147.3 cm; Wt 124.4 kg
[~2021-05-05 18:11] MED LIST changes: +BELBUCA600 MCG PO
--- OUTSIDE RECORDS SUMMARY | 2021-05-05 18:14 | XMS ---
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 ROMERO Security Realtime Captioner Events 1 event(s) in the past 18 months Most recent security events: Elopement at [facility] 12/23/2020 15:04 - Other Details: PATIENT LEFT AMA. CRITERIA MET - Group Notification - PDMP CARE PROVIDERS [facility] Community Health Worker 07/03/2019-Current PHONE: [phone] JONES DAVISON [facility] 03/27/2020-Current PHONE: [phone] JONES DAVISON Dentist: Blood Bank Attendant 05/23/2019-Current PHONE: [phone] Rob Tilley Clay Puddler/Professor Of Surgery 03/27/2021-Current PHONE: [phone] CONCETTA [facility] Internal Medicine: Pulmonary Disease 08/23/2018-Current PHONE: Unknown Care Guidelines exist for the following facilities: [facility] ( 09/16/2019 ) Care History Medical/Surgical 08/07/2020 [facility] - PATIENT HAS AN APT WITH DR DAVISON 08/13/20- PCP HAS RECEIVED RECENT ED VISIT RECORD FROM 08/06/20 ED VISIT. 03/27/2020 [facility] - CHW CONTACTED PATIENT- PATIENT STATED SHE IS STILL EXPERIENCING ABDOMINAL PAIN AND WILL BE CONTACTING DR KISER OFFICE THIS AM. - PATIENT WAS LAST SEEN BY PCP ON 03/07/20 FOR ER FOLLOW UP. - PATIENT STATED ALL ABDOMINAL PAIN/SYMPTOMS WILL BE FOLLOWED UP BY DR WEBBER AND OR DR TIWARI. 03/26/2020 [facility] - DR WEBBER KNOWS THIS PATIENT WELL AND RECOMMENDED PATIENT BE SEEN BY DR TIWARI AT [facility]- A REFERRAL HAS BEEN GENERATED AND CT IMAGES SENT. E.D. VISIT COUNT (12 MO.) 9 HADLEY Zamudio TOTAL 9 NOTE: Visits indicate total known visits. ED/UCC VISIT TRACKING (12 MO.) 05/05/2021 18:11 [facility] [place] TYPE: Emergency COMPLAINT: - FALL 03/09/2021 10:27 [facility] [place] TYPE: Emergency COMPLAINT: - DIZZINESS DIAGNOSES: - skilled nursing (current) use of opiate analgesic - Chest pain, unspecified - skilled nursing (current) use of anticoagulants - Acute pharyngitis, unspecified - Migraine, unspecified, not intractable, without status migrainosus - Other nursing home (current) drug therapy - Obesity, unspecified - Dizziness and giddiness 02/14/2021 17:29 [facility] [place] TYPE: Emergency COMPLAINT: - SYNCOPE 12/23/2020 15:04 [facility] [place] TYPE: Emergency COMPLAINT: - DIZZINESS DIAGNOSES: - Obesity, unspecified - intermodal dispatcher (current) use of anticoagulants - Allergy status to analgesic agent - Allergy status to other drugs, medicaments and biological substances - skilled nursing (current) use of opiate analgesic - Unspecified intracranial injury with loss of consciousness of 30 minutes or less, initial encounter - Contusion of unspecified front wall of thorax, initial encounter - Fall on same level, unspecified, initial encounter - Allergy status to penicillin - Migraine, unspecified, not intractable, without status migrainosus - Syncope and collapse - Other termite exterminator helper (current) drug therapy 12/22/2020 16:52 [facility] TYPE: Emergency COMPLAINT: - DIZZINESS, R KNEE PAIN DIAGNOSES: - Allergy status to analgesic agent - Allergy status to other drugs, medicaments and biological substances - Allergy status to penicillin - skilled nursing (current) use of oral hypoglycemic drugs - Dizziness and giddiness - intermodal dispatcher (current) use of opiate analgesic - Urinary tract infection, site not specified - Obesity, unspecified - Other termite exterminator helper (current) drug therapy - Migraine, unspecified, not intractable, without status migrainosus - intermodal dispatcher (current) use of anticoagulants 09/17/2020 19:28 [facility] [place] TYPE: Emergency COMPLAINT: - ABD PAIN DIAGNOSES: - Migraine, unspecified, not intractable, without status migrainosus - Allergy status to other drugs, medicaments and biological substances - Ventral hernia without obstruction or gangrene - Other nursing home (current) drug therapy - Syncope and collapse - skilled nursing (current) use of anticoagulants - Allergy status [...] medicaments and biological substances - Other termite exterminator helper (current) drug therapy - Melena - Hypokalemia - Allergy status to penicillin - Personal history of other venous thrombosis and embolism - intermodal dispatcher (current) use of anticoagulants - Allergy status to analgesic agent 07/28/2020 18:24 [facility] [place] TYPE: Emergency COMPLAINT: - DIZZINESS INPATIENT VISIT TRACKING (12 MO.) 02/14/2021 17:30 [facility] TYPE: Observation COMPLAINT: - SYNCOPE/ HYPOTENSION DIAGNOSES: - Chronic right heart failure - skilled nursing (current) use of anticoagulants - Hypothyroidism, unspecified [...] - Presence of urogenital implants - Other termite exterminator helper (current) drug therapy - Allergy status to other drugs, medicaments and biological substances - Migraine, unspecified, not intractable, without status migrainosus - Personal history of pulmonary embolism - Allergy status to analgesic agent - intermodal dispatcher (current) use of anticoagulants - Ventral hernia without obstruction or gangrene - Urinary tract infection, site not specified - Hypomagnesemia - Orthostatic hypotension - Contact with and (suspected) exposure to other viral communicable diseases - Allergy status to penicillin 07/28/2020 18:25 [facility] [place] TYPE: Observation COMPLAINT: - ACUTE GI [...] other venous thrombosis and embolism - intermodal dispatcher (current) use of anticoagulants - Chronic or unspecified gastric ulcer with hemorrhage - Body mass index [BMI] 50.0-59.9, adult - Body mass index [BMI] 50.0-59.9, adult - Encounter for screening for other viral diseases - Hypomagnesemia - Abnormal electrocardiogram [ECG] [EKG] [email or web address]
[2021-05-05] MEDS ORDERED: ELIQUIS5 MG PO (18:48)
== END 2021-05-05 19:55 | disposition home or self-care (01) ==
LOC: ED 18:11
DX: I95.1 Orthostatic hypotension (principal); R29.6 Repeated falls; E66.9 Obesity, unspecified; G43.909 Migraine, unspecified, not intractable, without status migrainosus; Z86.73 Personal history of transient ischemic attack (TIA), and cerebral infarction without residual deficits; Z88.0 Allergy status to penicillin; Z88.8 Allergy status to other drugs, medicaments and biological substances; Z88.5 Allergy status to narcotic agent; Z79.01 Long term (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; Z79.84 Long term (current) use of oral hypoglycemic drugs; Z79.899 Other long term (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
CPT/HCPCS: 70450; 80053; 85025; 99285-25; J7030

== ENCOUNTER 2021-09-14 11:05 | Emergency (ER) | payer OTHER ==
[~2021-09-14] VITALS: Ht 147.3 cm; Wt 124.4 kg
[~2021-09-14 11:05] MED LIST changes: +ELIQUIS5 MG PO
--- OUTSIDE RECORDS SUMMARY | 2021-09-14 11:06 | XMS ---
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 ROMERO Security Preschool Principal Events 1 event(s) in the past 18 months Most recent security events: Elopement at [facility] 12/23/2020 15:04 - Other Details: PATIENT LEFT AMA. CRITERIA MET - PDMP - Group Notification CARE PROVIDERS [facility] Community Health Worker 07/03/2019-Current PHONE: [phone] JONES DAVISON [facility] Current PHONE: [phone] JONES DAVISON Dentist: Consulting Sales Manager 05/23/2019-Current PHONE: [phone] Rob Tilley Agile Project Manager/Dispatcher Clerk 06/26/2021-Current PHONE: [phone] CONCETTA [facility] Internal Medicine: Pulmonary Disease 08/23/2018-Current PHONE: Unknown Care Guidelines exist for the following facilities: [facility] ( 09/16/2019 ) Care History Medical/Surgical 08/07/2020 [facility] - PATIENT HAS AN APT WITH DR DAVISON 08/13/20- PCP HAS RECEIVED RECENT ED VISIT RECORD FROM 08/06/20 ED VISIT. 03/27/2020 [facility] - CHW CONTACTED PATIENT- PATIENT STATED SHE IS STILL EXPERIENCING ABDOMINAL PAIN AND WILL BE CONTACTING DR KISER OFFICE THIS AM. - PATIENT WAS LAST SEEN BY PCP ON 03/07/20 FOR ER FOLLOW UP. - PATIENT STATED ALL ABDOMINAL PAIN/SYMPTOMS WILL BE FOLLOWED UP BY DR WEBBER AND OR DR TIWARI. 03/26/2020 [facility] - DR WEBBER KNOWS THIS PATIENT WELL AND RECOMMENDED PATIENT BE SEEN BY DR TIWARI AT [facility]- A REFERRAL HAS BEEN GENERATED AND CT IMAGES SENT. E.D. VISIT COUNT (12 MO.) 7 HADLEY Zamudio TOTAL 7 NOTE: Visits indicate total known visits. ED/UCC VISIT TRACKING (12 MO.) 09/14/2021 11:05 [facility] TYPE: Emergency COMPLAINT: - CHEST PAIN,SHOB 05/05/2021 18:11 [facility] TYPE: Emergency COMPLAINT: - FALL DIAGNOSES: - [facility] (current) use of oral hypoglycemic drugs - Dizziness and giddiness - Obesity, unspecified - Repeated falls - Allergy status to other drugs, medicaments and biological substances - Personal history of transient ischemic attack (TIA), and cerebral infarction without residual deficits - Allergy status to penicillin - Migraine, unspecified, not intractable, without status migrainosus - Orthostatic hypotension - termination clerk (current) use of anticoagulants - Other ocean transportation intermediary (current) drug therapy - Allergy status to narcotic agent 03/09/2021 10:27 [facility] [place] TYPE: Emergency COMPLAINT: - DIZZINESS DIAGNOSES: - [facility] (current) use of opiate analgesic - Chest pain, unspecified - termination clerk (current) use of anticoagulants - Acute pharyngitis, unspecified - Migraine, unspecified, not intractable, without status migrainosus - Other group home (current) drug therapy - Obesity, unspecified - Dizziness and giddiness 02/14/2021 17:29 [facility] TYPE: Emergency COMPLAINT: - SYNCOPE 12/23/2020 15:04 [facility] TYPE: Emergency COMPLAINT: - DIZZINESS DIAGNOSES: - Obesity, unspecified - [facility] (current) use of anticoagulants - Allergy status to analgesic agent - Allergy status to other drugs, medicaments and biological substances - termination clerk (current) use of opiate analgesic - Unspecified intracranial injury with loss of consciousness of 30 minutes or less, initial encounter - Contusion of unspecified front wall of thorax, initial encounter - Fall on same level, unspecified, initial encounter - Allergy status to penicillin - Migraine, unspecified, not intractable, without status migrainosus - Syncope and collapse - Other ocean transportation intermediary (current) drug therapy 12/22/2020 16:52 [facility] [place] TYPE: Emergency COMPLAINT: - DIZZINESS, R KNEE PAIN DIAGNOSES: - Allergy status to analgesic agent - Allergy status to other drugs, medicaments and biological substances - Allergy status to penicillin - [facility] (current) use of oral hypoglycemic drugs - Dizziness and giddiness - [facility] (current) use of opiate analgesic - Urinary tract infection, site not specified - Obesity, unspecified - Other ocean transportation intermediary (current) drug therapy - Migraine, unspecified, not intractable, without status migrainosus - [facility] (current) use of anticoagulants 09/17/2020 19:28 [facility] [place] TYPE: Emergency COMPLAINT: - ABD PAIN DIAGNOSES: - Migraine, unspecified, not intractable, without status migrainosus - Allergy status to other drugs, medicaments and biological substances - Ventral hernia without obstruction or gangrene - Other ocean transportation intermediary (current) drug therapy - Syncope and collapse - [facility] (current) use of anticoagulants - Allergy status to penicillin - Right lower quadrant pain - Other chronic pain - Allergy status to analgesic agent INPATIENT VISIT TRACKING (12 MO.) 02/14/2021 17:30 [facility] [place] TYPE: Observation COMPLAINT: - SYNCOPE/ HYPOTENSION DIAGNOSES: - Chronic right heart failure - termination clerk (current) use of anticoagulants - Hypothyroidism, unspecified [...] - Obesity, unspecified - Other bipolar disorder [email or web address]
[2021-09-14] MEDS ORDERED: HYDROXYZINE HCL50 MG PO (11:46)
--- NOTE | 2021-09-17 13:42 | EKG ---
[facility] [address] [place] [address] Signed Poor data quality, interpretation may be adversely affected Normal sinus rhythm Normal ECG When compared with ECG of 09-MAR-2021 10:33, No significant change was found Confirmed by MARU FITZGERALD MD ([id number]) on 09/17/2021 1:42:29 PM Electronically Signed By: MARU FITZGERALD MD 09/17/21 1342 PATIENT NAME: DYLAN ROMERO Electrocardiogram DATE OF : 79 PHYSICIAN: MARU FITZGERALD MD REPORT #: [id number] REPORT IS CONFIDENTIAL AND NOT TO BE RELEASED WITHOUT AUTHORIZATION
== END 2021-09-14 16:01 | disposition home or self-care (01) ==
LOC: ED 11:05
DX: R07.89 Other chest pain (principal); J06.9 Acute upper respiratory infection, unspecified; E66.9 Obesity, unspecified; G43.909 Migraine, unspecified, not intractable, without status migrainosus; Z88.0 Allergy status to penicillin; Z88.8 Allergy status to other drugs, medicaments and biological substances; Z79.899 Other long term (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; Z79.84 Long term (current) use of oral hypoglycemic drugs; Z79.01 Long term (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; Z20.822 Contact with and (suspected) exposure to COVID-19
CPT/HCPCS: 36415; 71045; 80053; 83735; 84484; 85025; 85379; 93005; 93010; 96374; 96375; 99285-25; A9270; C9803; J2060; J2550; U0003

== ENCOUNTER 2021-12-14 10:49 | Emergency (ER) | payer OTHER ==
[~2021-12-14] VITALS: Ht 147.3 cm; Wt 136.1 kg
[~2021-12-14 10:49] MED LIST changes: +HYDROXYZINE HCL50 MG PO
--- OUTSIDE RECORDS SUMMARY | 2021-12-14 10:52 | XMS ---
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 ROMERO Security Digital Librarian Events 1 event(s) in the past 18 months Most recent security events: Elopement at [facility] 12/23/2020 15:04 - Other Details: PATIENT LEFT AMA. CRITERIA MET - PDMP - Group Notification CARE PROVIDERS [facility] Community Health Worker 07/03/2019-Current PHONE: [phone] BETZY BALDWIN Physician Director Of Enterprise Strategy: Medical 09/16/2021-Current PHONE: Unknown JONES DAVISON [facility] 03/27/2020-Current PHONE: [phone] JONES DAVISON Dentist: Jitterbug Operator 05/23/2019-Current PHONE: [phone] Rob Tilley Reporting Developer/Financial Management 09/24/2021-Current PHONE: [phone] CONCET[facility] Internal Medicine: Pulmonary Disease 08/23/2018-Current PHONE: Unknown Care Guidelines exist for the following facilities: [facility] ( 09/16/2019 ) Care History Medical/Surgical 09/16/2021 [facility] - PATIENT CURRENTLY ON A PAIN CONTRACT WITH [facility]- BETZY BALDWIN PA-C, PRESCRIBES THE MEDICATION. 08/07/2020 [facility] - [...] BY DR WEBBER AND OR DR TIWARI. [place] VISIT COUNT (12 MO.) 7 HADLEY Zamudio TOTAL 7 NOTE: Visits indicate total known visits. ED/UCC VISIT TRACKING (12 MO.) 12/14/2021 10:49 [facility] [place] TYPE: Emergency COMPLAINT: - DIFFICULTY BREATHING 09/14/2021 11:05 [facility] TYPE: Emergency COMPLAINT: - CHEST PAIN,SHOB DIAGNOSES: - Allergy status to penicillin - long term care phlebotomist (current) use of oral hypoglycemic drugs - Migraine, unspecified, not intractable, without status migrainosus - Allergy status to other drugs, medicaments and biological substances - Shortness of breath - shelter (current) use of anticoagulants - Other chest pain - Acute upper respiratory infection, unspecified - Obesity, unspecified - Other watermelon harvesting supervisor (current) drug therapy 05/05/2021 18:11 [facility] TYPE: Emergency COMPLAINT: - FALL DIAGNOSES: - long term care phlebotomist (current) use of oral hypoglycemic drugs - Dizziness and giddiness - Obesity, unspecified - Repeated falls - Allergy status to other drugs, medicaments and biological substances - Personal history of transient ischemic attack (TIA), and cerebral infarction without residual deficits - Allergy status to penicillin - Migraine, unspecified, not intractable, without status migrainosus - Orthostatic hypotension - long term care phlebotomist (current) use of anticoagulants - Other [facility]ci (current) drug therapy - Allergy status to narcotic agent 03/09/2021 10:27 [facility] TYPE: Emergency COMPLAINT: - DIZZINESS DIAGNOSES: - long term care phlebotomist (current) use of opiate analgesic - Chest pain, unspecified - long term care phlebotomist (current) use of anticoagulants - Acute pharyngitis, unspecified - Migraine, unspecified, not intractable, without status migrainosus - Other [facility]ci (current) drug therapy - Obesity, unspecified - Dizziness and giddiness 02/14/2021 17:29 [facility] TYPE: Emergency COMPLAINT: - SYNCOPE 12/23/2020 15:04 [facility] TYPE: Emergency COMPLAINT: - DIZZINESS DIAGNOSES: - Obesity, unspecified - shelter (current) use of anticoagulants - Allergy status to analgesic agent - Allergy status to other drugs, medicaments and biological substances - shelter (current) use of opiate analgesic - Unspecified intracranial injury with loss of consciousness of 30 minutes or less, initial encounter - Contusion of unspecified front wall of thorax, initial encounter - Fall on same level, unspecified, initial encounter - Allergy status to penicillin - Migraine, unspecified, not intractable, without status migrainosus - Syncope and collapse - Other [facility]ci (current) drug therapy 12/22/2020 16:52 [facility] TYPE: Emergency COMPLAINT: - DIZZINESS, R KNEE PAIN DIAGNOSES: - Allergy status to analgesic agent - Allergy status to other drugs, medicaments and biological substances - Allergy status to penicillin - long term care phlebotomist (current) use of oral hypoglycemic drugs - Dizziness and giddiness - long term care phlebotomist (current) use of opiate analgesic - Urinary tract infection, site not specified - Obesity, unspecified - Other fci (current) drug therapy - Migraine, unspecified, not intractable, without status migrainosus - shelter (current) use of anticoagulants INPATIENT VISIT TRACKING (12 MO.) 02/14/2021 17:30 [facility] TYPE: Observation COMPLAINT: - SYNCOPE/ HYPOTENSION DIAGNOSES: - Chronic right heart failure - shelter (current) use of anticoagulants - Hypothyroidism, unspecified [...] - Obesity, unspecified - Other bipolar disorder [email or web address]
[2021-12-14] MEDS ORDERED: LOMOTIL TABLET1 EACH PO (13:34)
[2021-12-14] MEDS ORDERED: DICYCLOMINE HCL20 MG PO (13:34)
[2021-12-14] MEDS ORDERED: PROMETHAZINE HC25 M1 PO (16:10)
--- NOTE | 2021-12-15 08:59 | EKG ---
[facility] [address] [place], [place] [address] Signed Normal sinus rhythm Normal ECG When compared with ECG of 14-SEP-2021 11:06, No significant change was found Confirmed by MARU FITZGERALD MD ([id number]) on 12/15/2021 8:58:53 AM Electronically Signed By: MARU FITZGERALD MD 12/15/21 0859 PATIENT NAME: DYLAN ROMERO Electrocardiogram DATE OF : 79 PHYSICIAN: MARU FITZGERALD MD REPORT #: [id number] REPORT IS CONFIDENTIAL AND NOT TO BE RELEASED WITHOUT AUTHORIZATION
== END 2021-12-14 16:30 | disposition home or self-care (01) ==
LOC: ED 10:49
DX: B34.9 Viral infection, unspecified (principal); R10.9 Unspecified abdominal pain; E66.9 Obesity, unspecified; G43.909 Migraine, unspecified, not intractable, without status migrainosus; Z88.0 Allergy status to penicillin; Z88.8 Allergy status to other drugs, medicaments and biological substances; Z79.899 Other long term (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; Z79.84 Long term (current) use of oral hypoglycemic drugs; Z79.01 Long term (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; Z20.822 Contact with and (suspected) exposure to COVID-19
CPT/HCPCS: 36415; 71045; 74177; 80053; 85025; 85379; 87502; 93005; 93010; 96375; 96376; 99285-25; A9270; J2270; J2550; J7030; Q9967; U0003

== ENCOUNTER 2022-01-16 21:54 | Emergency (ER) | payer OTHER ==
[~2022-01-16] VITALS: Ht 147.3 cm; Wt 139.5 kg
--- NOTE | ~2022-01-16 | EKG ---
[facility] [address] [place], [place] [address] Draft EK completed, results pending confirmation PATIENT NAME: DYLAN ROMERO ROMERO Electrocardiogram DATE OF : 79 PHYSICIAN: PRELIMINARY REPORT #: [id number] REPORT IS CONFIDENTIAL AND NOT TO BE RELEASED WITHOUT AUTHORIZATION
[~2022-01-16 21:54] MED LIST changes: +DICYCLOMINE HCL20 MG PO
--- OUTSIDE RECORDS SUMMARY | 2022-01-16 21:56 | XMS ---
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 ROMERO Security House Registry Rn Events 1 event(s) in the past 18 months Most recent security events: Elopement at [facility] 12/23/2020 15:04 - Other Details: PATIENT LEFT AMA. CRITERIA MET - Group Notification - PDMP CARE PROVIDERS [facility] Community Health Worker 07/03/2019-Current PHONE: [phone] BETZY BALDWIN Physician Materials Clerk: Medical 09/16/2021-Current PHONE: Unknown JONES DAVISON [facility] 03/27/2020-Current PHONE: [phone] JONES DAVISON Dentist: Engineering And Development Director 05/23/2019-Current PHONE: [phone] Rob Tilley Behavioral Geneticist/Hat Presser 09/24/2021-Current PHONE: [phone] CONCET[facility] [place] Internal Medicine: Pulmonary Disease 08/23/2018-Current PHONE: Unknown Care Guidelines exist for the following facilities: [facility] ( 09/16/2019 ) Care History Medical/Surgical 09/16/2021 [facility] - PATIENT CURRENTLY ON A PAIN CONTRACT WITH [facility]- BETZY BALDWIN PA-C, PRESCRIBES THE MEDICATION. 08/07/2020 [facility] - PATIENT HAS AN APT WITH DR DAVISON 08/13/20- PCP HAS RECEIVED RECENT ED VISIT RECORD FROM 08/06/20 ED VISIT. 03/27/2020 [facility] - CHW CONTACTED PATIENT- PATIENT STATED SHE IS STILL EXPERIENCING ABDOMINAL PAIN AND WILL BE CONTACTING DR KISER OFFICE THIS AM. - PATIENT WAS LAST SEEN BY PCP ON 03/07/20 FOR ER FOLLOW UP. - PATIENT STATED ALL ABDOMINAL PAIN/SYMPTOMS WILL BE FOLLOWED UP BY DR WEBBER AND OR DR TIWARI. [place] VISIT COUNT (12 MO.) 6 HADLEY Zamudio TOTAL 6 NOTE: Visits indicate total known visits. ED/UCC VISIT TRACKING (12 MO.) 01/16/2022 21:55 [facility] TYPE: Emergency COMPLAINT: - ABDOMINAL PAIN 12/14/2021 10:49 [facility] TYPE: Emergency COMPLAINT: - DIFFICULTY BREATHING DIAGNOSES: - Unspecified abdominal pain - Contact with and (suspected) exposure to COVID-19 - Allergy status to other drugs, medicaments and biological substances - Other [facility] (current) drug therapy - Viral infection, unspecified - Allergy status to penicillin - Migraine, unspecified, not intractable, without status migrainosus - Shortness of breath - intermodal truck driver (current) use of oral hypoglycemic drugs - intermodal truck driver (current) use of anticoagulants - Obesity, unspecified 09/14/2021 11:05 [facility] TYPE: Emergency COMPLAINT: - CHEST PAIN,SHOB DIAGNOSES: - Allergy status to penicillin - prison (current) use of oral hypoglycemic drugs - Migraine, unspecified, not intractable, without status migrainosus - Allergy status to other drugs, medicaments and biological substances - Shortness of breath - intermodal truck driver (current) use of anticoagulants - Other chest pain - Acute upper respiratory infection, unspecified - Obesity, unspecified - Other [facility] (current) drug therapy 05/05/2021 18:11 [facility] TYPE: Emergency COMPLAINT: - FALL DIAGNOSES: - prison (current) use of oral hypoglycemic drugs - Dizziness and giddiness - Obesity, unspecified - Repeated falls - Allergy status to other drugs, medicaments and biological substances - Personal history of transient ischemic attack (TIA), and cerebral infarction without residual deficits - Allergy status to penicillin - Migraine, unspecified, not intractable, without status migrainosus - Orthostatic hypotension - prison (current) use of anticoagulants - Other parts counterman (current) drug therapy - Allergy status to narcotic agent 03/09/2021 10:27 [facility] TYPE: Emergency COMPLAINT: - DIZZINESS DIAGNOSES: - intermodal truck driver (current) use of opiate analgesic - Chest pain, unspecified - intermodal truck driver (current) use of anticoagulants - Acute pharyngitis, unspecified - Migraine, unspecified, not intractable, without status migrainosus - Other [facility] (current) drug therapy - Obesity, unspecified - Dizziness and giddiness 02/14/2021 17:29 [facility] TYPE: Emergency COMPLAINT: - SYNCOPE INPATIENT VISIT TRACKING (12 MO.) 02/14/2021 17:30 [facility] TYPE: Observation COMPLAINT: - SYNCOPE/ HYPOTENSION DIAGNOSES: - Chronic right heart failure - intermodal truck driver (current) use of anticoagulants - Hypothyroidism, unspecified [...] - Obesity, unspecified - Other bipolar disorder [email or web address]
[2022-01-16] MEDS ORDERED: ZANAFLEX4 MG PO (22:08)
== END 2022-01-17 01:28 | disposition home or self-care (01) ==
LOC: ED 21:54
DX: R55 Syncope and collapse (principal); R53.1 Weakness; R10.9 Unspecified abdominal pain; R06.00 Dyspnea, unspecified; E66.9 Obesity, unspecified; G43.909 Migraine, unspecified, not intractable, without status migrainosus; Z88.8 Allergy status to other drugs, medicaments and biological substances; Z88.0 Allergy status to penicillin; Z88.1 Allergy status to other antibiotic agents; Z88.6 Allergy status to analgesic agent; Z79.899 Other long term (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; Z20.822 Contact with and (suspected) exposure to COVID-19
CPT/HCPCS: 51701; 71045; 80053; 81001; 83690; 83735; 83880; 84484; 84703; 85025; 85610; 85730; 87502; 93005; 93010; 99285-25; C9803; J1170; J2270; J2765; J7121; U0003

== ENCOUNTER 2022-11-06 16:23 | Emergency (ER) | payer OTHER ==
[~2022-11-06] VITALS: Ht 147.3 cm; Wt 170.6 kg
--- OUTSIDE RECORDS SUMMARY | 2022-11-06 16:26 | XMS ---
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 ROMERO Security Burglar Alarm Installer Events No recent Security Events currently on file CRITERIA MET - PDMP - Group Notification CARE PROVIDERS -Sarah- Dentist: Library Attendant [facility] Dental [facility] PHONE: [phone] Eagle Nino Community Health Worker 07/03/2019-Current PHONE: [phone] BETZY BALDWIN Physician Dermatological Surgeon: Medical 09/16/2021-Current PHONE: Unknown JONES DAVISON [facility] 03/27/2020-Current PHONE: [phone] JONES DAVISON Dentist: Library Attendant 05/23/2019-Current PHONE: [phone] Rob Tilley Watchmaker Apprentice/Board Certified Behavioral Analyst 03/27/2022-Current PHONE: [phone] CONCETTA [facility]PT[facility] Internal Medicine: Pulmonary Disease 08/23/2018-Current PHONE: Unknown Care Guidelines exist for the following facilities: [facility] ( 09/16/2019 ) Care History Medical/Surgical 09/16/2021 [facility] - PATIENT CURRENTLY ON A PAIN CONTRACT WITH [facility]- BETZY BALDWIN PA-C, PRESCRIBES THE MEDICATION. 08/07/2020 [facility] - PATIENT HAS AN APT WITH DR DAVISON 08/13/20- PCP HAS RECEIVED RECENT ED VISIT RECORD FROM 08/06/20 ED VISIT. 03/27/2020 [facility] - CHW CONTACTED PATIENT- PATIENT STATED SHE IS STILL EXPERIENCING ABDOMINAL PAIN AND WILL BE CONTACTING DR KISER OFFICE THIS AM. - PATIENT WAS LAST SEEN BY PCP ON 03/07/20 FOR ER FOLLOW UP. - PATIENT STATED ALL ABDOMINAL PAIN/SYMPTOMS WILL BE FOLLOWED UP BY DR WEBBER AND OR DR TIWARI. Bacilio VISIT COUNT (12 MO.) 1 [facility] 3 [facility]. TOTAL 4 NOTE: Visits indicate total known visits. ED/UCC VISIT TRACKING (12 MO.) 11/06/2022 16:23 [facility] [place] TYPE: Emergency COMPLAINT: - WOUND CHECK 04/10/2022 14:10 [facility] TYPE: Emergency DIAGNOSES: 15088. chest pain 40417. Pain, unspecified . Abnormal weight gain 01/16/2022 21:55 [facility] [place] TYPE: Emergency COMPLAINT: - SYNCOPE DIAGNOSES: - Allergy status to other drugs, medicaments and biological substances - Other assisted (current) drug therapy - Contact with and (suspected) exposure to COVID-19 - Allergy status to penicillin - Dizziness and giddiness - Dyspnea, unspecified - Migraine, unspecified, not intractable, without status migrainosus - Allergy status to other antibiotic agents - Syncope and collapse - Weakness - Unspecified abdominal pain - Obesity, unspecified - Allergy status to analgesic agent 12/14/2021 10:49 [facility] [place] TYPE: Emergency COMPLAINT: - DIFFICULTY BREATHING DIAGNOSES: - Other assisted (current) drug therapy - Obesity, unspecified - Contact with and (suspected) exposure to COVID-19 - half-way (current) use of oral hypoglycemic drugs - Migraine, unspecified, not intractable, without status migrainosus - Viral infection, unspecified - Allergy status to other drugs, medicaments and biological substances - 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
[2022-11-06] MEDS ORDERED: METFORMIN HCL1000 MG PO (18:12)
[2022-11-06] MEDS ORDERED: TRULICITY0.75 MG/0. SUB-Q (18:13)
[2022-11-06] MEDS ORDERED: MIDODRINE HCL5 MG PO (18:14)
[2022-11-06] MEDS ORDERED: PRAMIPEXOLE0.125 MG PO (18:14)
[2022-11-06] MEDS ORDERED: DOXEPIN HCL6 MG PO (18:14)
[2022-11-06] MEDS ORDERED: LATUDA60 MG PO (18:14)
[2022-11-06] MEDS ORDERED: BACTRIM DS TAB1 EACH PO (19:52)
[2022-11-06] MEDS ORDERED: HYDROCODON-ACE1 EA10 PO (19:52)
[2022-11-06 20:30] VITALS: BP 124/98
== END 2022-11-06 20:30 | disposition home or self-care (01) ==
LOC: ED 16:23
DX: S81.001A Unspecified open wound, right knee, initial encounter (principal); X58.XXXA Exposure to other specified factors, initial encounter; E66.9 Obesity, unspecified; Z88.0 Allergy status to penicillin; Z88.8 Allergy status to other drugs, medicaments and biological substances; Z88.6 Allergy status to analgesic agent; Z79.899 Other long term (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; Z79.01 Long term (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
CPT/HCPCS: 96374; 99282-25; A9270; J2270

== ENCOUNTER 2023-03-08 16:59 | Emergency (ER) | payer OTHER | END 2023-03-08 19:25 | disposition home or self-care (01) | LOC: ED 16:59 | DX: L03.115 Cellulitis of right lower limb (principal); E66.9 Obesity, unspecified; Z88.0 Allergy status to penicillin; Z88.8 Allergy status to other drugs, medicaments and biological substances; Z79.01 Long term (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; Z79.84 Long term (current) use of oral hypoglycemic drugs ==

== ENCOUNTER 2023-04-30 10:43 | Emergency (ER) | payer OTHER ==
[~2023-04-30] VITALS: Ht 147.3 cm; Wt 170.6 kg
--- OUTSIDE RECORDS SUMMARY | ~2023-04-30 | XMS | Continuity of Care Document ---
Demographics + + + | Address | [address] | | | [place] [address] | + + + | Preferred Language | Unknown | + + + | Marital Status | | + + + | Presybeterian Affiliation | Unknown | + + + | Race | White | + + + | Ethnic Group | Not or | + + + Author + + + | Author | [facility] | + + + | Organization | [facility] | + + + | Address | [address] | | | [place] [address] | + + + | Phone | | + + + Care Team Providers + + + + | Care Construction Crew Member Name | Role | Phone | + + + + Unavailable | Unavailable | + + + + Allergies No information. Encounters No information. Functional Status No information. Immunizations No information. Medications No information. Problems + + + + | date | description | facility | + + + + | 2023-03-08 16:59 | OBESITY, UNSPECIFIED | [facility] | + + + + | 2023-03-08 16:59 | CELLULITIS OF RIGHT LOWER | [facility] | | | LIMB | | + + + + | 2023-03-08 16:59 | ENCOUNTER FOR CHANGE OR | [facility] | | | REMOVAL OF NONSURG WOUND | | | | DRESSING | | + + + + | 2023-03-08 16:59 | [facility] (CURRENT) USE OF | [facility] | | | ANTICOAGULANTS | | + + + + | 2023-03-08 16:59 | RUBBER MILL TENDER (CURRENT) USE OF | [facility] | | | ORAL HYPOGLYCEMIC DRUGS | | + + + + | 2023-03-08 16:59 | ALLERGY STATUS TO | [facility] | | | PENICILLIN | | + + + + | 2023-03-08 16:59 | ALLERGY STATUS TO OTH | [facility] | | | DRUG/MEDS/BIOL SUBST STATUS | | | | | | + + + + | 2023-04-01 09:00 | VENTRAL HERNIA WITHOUT | [facility] | | | OBSTRUCTION OR GA | | + + + + Procedures No information. Results/Labs No information. Social History +--------+ + + | date | description | facility | +--------+ + + Vital Signs No information."
[~2023-04-30 10:43] MED LIST changes: +DOXEPIN HCL6 MG PO; +HYDROCODON-ACE1 EA10 PO; +PRAMIPEXOLE0.125 MG PO; +TRAMADOL HCL50 MG PO; +TRULICITY0.75 MG/0. SUB-Q
--- OUTSIDE RECORDS SUMMARY | 2023-04-30 10:47 | XMS ---
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 ROMERO Security Crucible Furnace Tender Events No recent Security Events currently on file CRITERIA MET - Group Notification - PDMP CARE PROVIDERS Dionicio Tilleyevaristo Research Investigator/Exterior Designer 04/26/2023-Current PHONE: [phone] BETZY BALDWIN Physician Mixer Dry Food Products: Mary 09/16/2021-Current PHONE: Unknown LANEY [facility] 03/27/2020-Current PHONE: [phone] Eagle Nino Community Health Worker 07/03/2019-Current PHONE: [phone] JONES DAVISON Dentist: Instrument Maker 05/23/2019-Current PHONE: [phone] CONCETTA UPTON Internal Medicine: Pulmonary Disease 08/23/2018-Current PHONE: Unknown -Sarah- Dentist: Instrument Maker [facility] Dental [facility] PHONE: [phone] Care Guidelines exist for the following facilities: [facility] ( 09/16/2019 ) Care History Medical/Surgical 09/16/2021 [facility] - PATIENT CURRENTLY ON A PAIN CONTRACT WITH [facility]- BETZY BALDWIN PA-C, PRESCRIBES THE MEDICATION. 08/07/2020 [facility] - PATIENT HAS AN APT WITH DR DAVISON 08/13/20- PCP HAS RECEIVED RECENT ED VISIT RECORD FROM 08/06/20 ED VISIT. 03/27/2020 [facility] - CHW CONTACTED PATIENT- PATIENT STATED SHE IS STILL EXPERIENCING ABDOMINAL PAIN AND WILL BE CONTACTING DR KISER OFFICE THIS AM. - PATIENT WAS LAST SEEN BY PCP ON 03/07/20 FOR ER FOLLOW UP. - PATIENT STATED ALL ABDOMINAL PAIN/SYMPTOMS WILL BE FOLLOWED UP BY DR WEBBER AND OR DR TIWARI. Bcailio VISIT COUNT (12 MO.) 3 [facility]. TOTAL 3 NOTE: Visits indicate total known visits. ED/UCC VISIT TRACKING (12 MO.) 04/30/2023 10:44 [facility] [place] [facility] [facility] [place] TYPE: Emergency COMPLAINT: - WEAKNESS 03/08/2023 16:59 [facility] [place] [facility] [place] TYPE: Emergency COMPLAINT: - ABDOMINAL PAIN DIAGNOSES: - Allergy status to other drugs, medicaments and biological substances - Allergy status to penicillin - Cellulitis of right lower limb - Encounter for change or removal of nonsurgical wound dressing - halfway (current) use of anticoagulants - halfway (current) use of oral hypoglycemic drugs - Obesity, unspecified 11/06/2022 16:23 [facility] [place] TYPE: Emergency COMPLAINT: - WOUND CHECK DIAGNOSES: - Allergy status to analgesic agent - Allergy status to other drugs, medicaments and biological substances - Allergy status to penicillin - Exposure to other specified factors, initial encounter - halfway (current) use of anticoagulants - Obesity, unspecified - Other fdc (current) drug therapy - Unspecified open wound, right knee, initial encounter INPATIENT VISIT TRACKING (12 MO.) No inpatient visits to display in this time frame [id number]
[2023-04-30 11:29] LABS: EOSINOPHILS 3.2 % (0-6); HEMATOCRIT 34.8 % (35.0-50.0)
[2023-04-30 11:31] LABS: BASOPHILS 0.5 % (0-2); HEMOGLOBIN 10.4 g/dL (12.0-18.0); LYMPHOCYTES 22.6 % (24-44); MCH 26.2 (27-36); MCV 87.4 fl (81-99); MONOCYTES 8.9 % (0-12); NEUTROPHILS 64.8 % (39-80); PLATELET COUNT 268 K/uL (140-440); RBC 3.98 M/ul (4.3-5.7); RDW 19.1 (10.5-15.0)
[2023-04-30 11:49] LABS: ALBUMIN/GLOBULIN RATIO 0.45 (1.1-2.4); ANION GAP 10.5 (7-21); BILIRUBIN, TOTAL 0.4 ng/dL (0.2-1.0); BUN/CREATININE RATIO 16.9 (6.0-28.6); CALCIUM 8.7 mg/dL (8.5-10.1); CREATININE, SERUM 0.71 mg/dL (0.55-1.02); POTASSIUM 4.5 mmol/L (3.5-5.1); PROTEIN, TOTAL 6.4 g/dL (6.4-8.2)
[2023-04-30 11:53] LABS: INFLUENZA B NAA NEGATIVE (NEGATIVE); RESPIRATORY SYNCYTIAL VIR NAA NEGATIVE (NEGATIVE)
--- NOTE | 2023-04-30 12:19 | NUR ---
LE 1125: PT IS BEING SEEN FOR A WOUND CONSULT OF THE RIGHT PANNUS FOR OPEN WOUNDS THOUGHT TO BE SKIN TEARS. UPON ASSESSING THE AREA SHE HAS MULTIPLE LARGE AREAS OF YEAST WITH A HINT OF PSEUDAMONAS SMELL WELL 2 MAJOR OPEN WOUNDS UNDER THE PANNUS MOST LIKELY THE RESULT FROM FRICTION/SHEARING OF SKIN RUBBING ON SKIN AND A PILLOW CASE. THE AREAS ARE CLEANSED WITH WARM, WET WASH CLOTHS. SHE WAS MEDICATED PRIOR TO STARTING, BUT THE PT STILL DOES NOT TOLERATE CLEANING AND POSITIONING. SHE ENDS UP NEEDING TO BE PUT ON OXYGEN DUE TO POSITIONING AND THE ADDED WEIGHT OF HER ABDOMEN ON HER LUNGS. THE RIGHT BACK FOLD, RIGHT HIP/GROIN AREA, AND RIGHT GROIN/PANNUS ARE DRESSED WITH CAVILLON ADVNACED SKIN PREP AND NYSTATIN CREAM. THE OPEN WOUNDS MEASURE FOLLOWS: RLQ UNDER PANNUS SUPERIOR: MEASUREMENT: 7.3CM X 7.1CM X 0.1CM WOUND TYPE: FRICTION/SHEARING BASE: 100% SLOUGH WITH NECROTIC TISSUE PRESENT EXUDATE: YELLOW, MODERATE AMOUNT EDGES: SLOUGH, INTACT, NO UNDERMINING/TUNNELING INFECTION: CELLULITIS, YEAST PERIWOUND SKIN: RED/ERYTHEMA, WARM TO THE TOUCH PAIN: MEDICATED, BUT STILL VERY PAINFUL DRESSINGS: MEDIHONEY, CAVILLON ADVANCED SKIN PREP, FOAM RLQ UNDER PANNUS INFERIOR: MEASUREMENT: 4.8CM X 10.2CM X 0.1CM WOUND TYPE: FRICTION/SHEARING BASE: 90% SLOUGH, 10% CLEAN, NON-GRANULATING TISSUE EXUDATE: YELLOW, MODERATE EDGES: SLOUGH, INTACT, NO UNDERMINING/TUNNELING INFECTION: CELLULITIS, YEAST PERIWOUND SKIN: RED/ERYTHEMA, WARM TO THE TOUCH PAIN: MEDICATION, STILL VERY PAINFUL DRESSINGS: MEDIHONEY, CAVILLON ADVANCED SKIN PREP, FOAM RIGHT LATERAL THIGH SUPERIOR: MEASUREMENT: 2CM X 1.7CM X 0.2CM WOUND TYPE: ABRASION BASE: SCABBED EXUDATE: NONE EDGES: INTACT, EPITHELIALIZING INFECTION: NO PERIWOUND SKIN: VIABLE PAIN: MEDICATION, STILL VERY PAINFUL DRESSINGS: MEDIHONEY, CAVILLON ADVANCED SKIN PREP, FOAM RIGHT LATERAL THIGH INFERIOR: MEASUREMENT: 0.8CM X 0.6CM X 0.2CM WOUND TYPE: ABRAISION BASE: SCABBED EXUDATE: NONE EDGES: INTACT, EPITHELIALIZING INFECTION: NO PERIWOUND SKIN: VIABLE PAIN: MEDICATION, STILL VERY PAINFUL DRESSINGS: EMERITA PEREZ ADVANCED SKIN PREP, FOAM PT IS REPOISITIONED TO AN UPRIGHT SITTING POSITION. THIS WOUND CONSULT TOOK APPROX 45 MINTUES, WITH PAUSES TO LET THE PT REST AND CATCH HER BREATH. SPOKE WITH DR. MONROE, LET HIM KNOW THAT THE PT REPORTED SHE HAD PREVIOUSLY BEEN SEEN BY HOME HEALTH, BUT THEY STOPPED COMING BECAUSE SHE "WAS CURED." SHE ALSO HAS A CAREGIVER AT HOME, BUT SHE HASN'T BEEN HAVING THEM HELP HER SHOWER BECAUSE OF THE PAIN SHE IS EXPERIENCING. IT IS RECOMMENDED THAT SHE GET REFERRED BACK TO HOME HEALTH FOR CONTINUED CARE/HELP.
[2023-04-30 13:25] LABS: BILIRUBIN, URINE POSITIVE (negative); BLOOD/HGB, URINE NEGATIVE (Negative); KETONE, URINE NEGATIVE (Negative); LEUK ESTERASE, URINE SMALL (negative); NITRITE, URINE POSITIVE (negative); PH, URINE 5.5 (5-7)
[2023-04-30 13:33] LABS: BACTERIA, URINE 4+ /hpf (negative)
[2023-04-30 13:34] LABS: CASTS, URINE NONE SEEN \\lpf; COLLECTION TYPE, URINE CLEAN CATCH; CRYSTALS, URINE NONE SEEN (0-1+); EPITHELIAL CELLS, URINE SQUAMOUS 1+ /lpf (0-1+); RED BLOOD CELLS, URINE 0-1 /hpf (0-5); WHITE BLOOD CELLS, URINE >50 /HPF (0-5)
[2023-04-30 13:35] LABS: REFLEX CULTURE, URINE Yes (No)
[2023-04-30] MEDS ORDERED: BACTRIM DS TAB1 EACH PO (14:58)
[2023-04-30] MEDS ORDERED: MACRODANTIN100 MG PO (14:58)
[2023-04-30] MEDS ORDERED: HYDROCODON-ACE1 EA10 PO (15:00)
[2023-05-01 17:05] VITALS: BP 125/64
== END 2023-05-01 17:00 ==
LOC: ED 10:43
PROVIDERS: Internal Medicine
DX: L03.90 Cellulitis, unspecified (principal); E66.01 Morbid (severe) obesity due to excess calories; N39.0 Urinary tract infection, site not specified; F41.9 Anxiety disorder, unspecified; Z86.73 Personal history of transient ischemic attack (TIA), and cerebral infarction without residual deficits; Z86.718 Personal history of other venous thrombosis and embolism; Z86.711 Personal history of pulmonary embolism; Z98.84 Bariatric surgery status; Z88.8 Allergy status to other drugs, medicaments and biological substances; Z88.0 Allergy status to penicillin; Z79.899 Other long term (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; Z79.01 Long term (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
CPT/HCPCS: 36415; 71045; 80053; 81001; 83605; 85025; 87088; 87502; 96365; 96375; 96376; 97161; 99284-25; A9270; C9803; J0696; J1170; J3490; J7030; U0002

== ENCOUNTER 2023-06-20 21:43 | Emergency (ER) | payer OTHER ==
[~2023-06-20] VITALS: Ht 147.3 cm; Wt 188.5 kg
[~2023-06-20 21:43] MED LIST changes: +MACRODANTIN100 MG PO; +PAXIL20 MG; -PAXIL40 MG PO
--- OUTSIDE RECORDS SUMMARY | 2023-06-20 23:01 | XMS ---
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 ROMERO Security Clerk Of Court Events No recent Security Events currently on file CRITERIA MET - Group Notification - PDMP CARE PROVIDERS Dionicio Tilleyevaristo Table Hand/Office Support Associate 04/26/2023-Current PHONE: [phone] BETZY BALDWIN Physician Oxygen Equipment Technician: Mary 09/16/2021-Current PHONE: Unknown LANEY [facility] 03/27/2020-Current PHONE: [phone] Eagle Nino Community Health Worker 07/03/2019-Current PHONE: [phone] JONES DAVISON Dentist: Long Chain Quiller Tender 05/23/2019-Current PHONE: [phone] CONCETTA UPTON Internal Medicine: Pulmonary Disease 08/23/2018-Current PHONE: Unknown -Sarah- Dentist: Long Chain Quiller Tender [facility] PHONE: [phone] SERGIO HERNANDEZ Nurse Practitioner: Family Current PHONE: [phone] Care Guidelines exist for the following facilities: [facility] ( 09/16/2019 ) Care History Medical/Surgical 09/16/2021 [facility] - PATIENT CURRENTLY ON A PAIN CONTRACT WITH [facility]- BETZY BALDWIN PA-C, PRESCRIBES THE MEDICATION. 08/07/2020 [facility] - PATIENT HAS AN APT WITH DR DAVISON 08/13/20- PCP HAS RECEIVED RECENT ED VISIT RECORD FROM 08/06/20 ED VISIT. 03/27/2020 [facility] - CHW CONTACTED PATIENT- PATIENT STATED SHE IS STILL EXPERIENCING ABDOMINAL PAIN AND WILL BE CONTACTING DR KISER OFFICE THIS AM. - PATIENT WAS LAST SEEN BY PCP ON 03/07/20 FOR ER FOLLOW UP. - PATIENT STATED ALL ABDOMINAL PAIN/SYMPTOMS WILL BE FOLLOWED UP BY DR WEBBER AND OR DR TIWARI. E.DRenee VISIT COUNT (12 MO.) 4 [facility]. TOTAL 4 NOTE: Visits indicate total known visits. ED/UCC VISIT TRACKING (12 MO.) 06/20/2023 21:43 [facility] TYPE: Emergency COMPLAINT: - ABD PAIN 04/30/2023 10:44 [facility] TYPE: Emergency COMPLAINT: - WEAKNESS DIAGNOSES: - Allergy status to other drugs, medicaments and biological substances - Allergy status to penicillin - Anxiety disorder, unspecified - Bariatric surgery status - Cellulitis, unspecified - Contact with and (suspected) exposure to COVID-19 - assisted (current) use of anticoagulants - Morbid (severe) obesity due to excess calories - Other snf (current) drug therapy - Personal history of other venous thrombosis and embolism - Personal history of pulmonary embolism - Personal history of transient ischemic attack (TIA), and cerebral infarction without residual deficits - Unspecified open wound of abdominal wall, unspecified quadrant without penetration into peritoneal cavity, initial encounter - Urinary tract infection, site not specified 03/08/2023 16:59 [facility] TYPE: Emergency COMPLAINT: - ABDOMINAL PAIN DIAGNOSES: - Allergy status to other drugs, medicaments and biological substances - Allergy status to penicillin - Cellulitis of right lower limb - Encounter for change or removal of nonsurgical wound dressing - buttermaker helper (current) 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 [place] TYPE: Emergency COMPLAINT: - WOUND CHECK DIAGNOSES: - Allergy status to analgesic agent - Allergy status to other drugs, medicaments and biological substances - Allergy status to penicillin - Exposure to other specified factors, initial encounter - buttermaker helper (current) use of anticoagulants - Obesity, unspecified - Other watermaster (current) drug therapy - Unspecified open wound, right knee, initial encounter INPATIENT VISIT TRACKING (12 MO.) No inpatient visits to display in this time frame [id number]
[2023-06-20 23:13] LABS: BASOPHILS 2.7 % (0-2); EOSINOPHILS 3.9 % (0-6); HEMATOCRIT 31.7 % (35.0-50.0); HEMOGLOBIN 9.9 g/dL (12.0-18.0); LYMPHOCYTES 14.4 % (24-44); MCH 24.7 (27-36); MCHC 31.2 g/dl (30-36); MCV 79.2 fl (81-99); MONOCYTES 7.9 % (0-12); NEUTROPHILS 71.1 % (39-80); PLATELET COUNT 257 K/uL (140-440); RDW 18.7 (10.5-15.0)
[2023-06-20 23:41] LABS: BILIRUBIN, URINE NEGATIVE (negative); BLOOD/HGB, URINE SMALL (Negative); KETONE, URINE NEGATIVE (Negative); LEUK ESTERASE, URINE NEGATIVE (negative); NITRITE, URINE NEGATIVE (negative)
[2023-06-20 23:42] LABS: ALBUMIN 2.1 g/dL (3.4-5.0); ALBUMIN/GLOBULIN RATIO 0.49 (1.1-2.4); ANION GAP 12.3 (7-21); BILIRUBIN, TOTAL 0.7 ng/dL (0.2-1.0); BUN/CREATININE RATIO 10.98 (6.0-28.6); CREATININE, SERUM 0.91 mg/dL (0.55-1.02); POTASSIUM 4.3 mmol/L (3.5-5.1); PROTEIN, TOTAL 6.4 g/dL (6.4-8.2)
[2023-06-20 23:47] LABS: EPITHELIAL CELLS, URINE SQUAMOUS 4+ /lpf (0-1+); WHITE BLOOD CELLS, URINE 0-1 /HPF (0-5)
[2023-06-20 23:48] LABS: BACTERIA, URINE 1+ /hpf (negative); REFLEX CULTURE, URINE No (No)
[2023-06-21] MEDS ORDERED: REGLAN10 MG PO (01:33)
[2023-06-21] MEDS ORDERED: DIAZEPAM5 MG PO (01:34)
[2023-06-21] MEDS ORDERED: [UNRECOGNIZED DRUG - OTHER] PO (02:02)
[2023-06-21 02:20] VITALS: BP 134/71
== END 2023-06-21 02:21 | disposition home or self-care (01) ==
LOC: ED 21:43
PROVIDERS: Internal Medicine
DX: R10.32 Left lower quadrant pain (principal); D50.9 Iron deficiency anemia, unspecified; E66.9 Obesity, unspecified; G43.909 Migraine, unspecified, not intractable, without status migrainosus; Z88.8 Allergy status to other drugs, medicaments and biological substances; Z88.0 Allergy status to penicillin; Z88.6 Allergy status to analgesic agent; Z79.899 Other long term (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
CPT/HCPCS: 36415; 74177; 80053; 81001; 83690; 84703; 85025; 99284-25; A9270; Q9967

== ENCOUNTER 2023-07-06 13:56 | Emergency (ER) | payer OTHER ==
[~2023-07-06] VITALS: Ht 147.3 cm; Wt 206.5 kg
[~2023-07-06 13:56] MED LIST changes: +DIAZEPAM5 MG PO; +[UNRECOGNIZED DRUG - OTHER] PO
--- OUTSIDE RECORDS SUMMARY | 2023-07-06 14:02 | XMS ---
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 ROMERO Security Disability Services Coordinator Events No recent Security Events currently on file CRITERIA MET - Group Notification - [facility] - 2 Visits in 30 Days CARE PROVIDERS Rob Tilley Napper Grinder/Hospice Admitting Clerk 05/27/2023-Current PHONE: [phone] BETZY BALDWIN Physician Pitch Filler: Mary 09/16/2021-Current PHONE: Unknown LANEY [facility] 03/27/2020-Current PHONE: [phone] Eagle Nino Community Health Worker 07/03/2019-Current PHONE: [phone] JONES DAVISON Dentist: Dental Professional 05/23/2019-Current PHONE: [phone] CONCETTA UPTON Internal Medicine: Pulmonary Disease 08/23/2018-Current PHONE: Unknown -Sarah- Dentist: Dental Professional [facility] PHONE: [phone] SERGIO HERNANDEZ Nurse Practitioner: Family Current PHONE: [phone] Care Guidelines exist for the following facilities: [facility] ( 09/16/2019 ) Care History Medical/Surgical 09/16/2021 [facility] - PATIENT CURRENTLY ON A PAIN CONTRACT WITH [facility]- BETZY BALDWIN PA-C, PRESCRIBES THE MEDICATION. 08/07/2020 [facility] - PATIENT [...] DR TIWARI. E.DRenee VISIT COUNT (12 MO.) 5 [facility]. TOTAL 5 NOTE: Visits indicate total known visits. ED/UCC VISIT TRACKING (12 MO.) 07/06/2023 13:56 [facility] TYPE: Emergency COMPLAINT: - LEG PAIN 06/20/2023 21:43 [facility] TYPE: Emergency COMPLAINT: - ABD PAIN DIAGNOSES: - Allergy status to analgesic agent - Allergy status to other drugs, medicaments and biological substances - Allergy status to penicillin - Iron deficiency anemia, unspecified - Left lower quadrant pain - Migraine, unspecified, not intractable, without status migrainosus - Obesity, unspecified - Other senior care (current) drug therapy 04/30/2023 10:44 [facility] TYPE: Emergency COMPLAINT: - WEAKNESS DIAGNOSES: - Allergy status to other drugs, medicaments and biological substances - Allergy status to penicillin - Anxiety disorder, unspecified - Bariatric surgery status - Cellulitis, unspecified - Contact with and (suspected) exposure to COVID-19 - jail (current) use of anticoagulants - Morbid (severe) obesity due to excess calories - Other predatory animal exterminator (current) drug therapy - Personal history of [...] or removal of nonsurgical wound dressing - 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 driver (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 - 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 truck driver (current) use of oral hypoglycemic drugs - Obesity, unspecified 11/06/2022 16:23 [facility] TYPE: Emergency COMPLAINT: - WOUND CHECK DIAGNOSES: - Allergy status to analgesic agent - Allergy status to other drugs, medicaments and biological substances - Allergy status to penicillin - Exposure to other specified factors, initial encounter - jail (current) use of anticoagulants - Obesity, unspecified - Other predatory animal exterminator (current) drug therapy - Unspecified open wound, right knee, initial encounter INPATIENT VISIT TRACKING (12 MO.) No inpatient visits to display in this time frame [email or web address]
[2023-07-06] MEDS ORDERED: HYDROCODON-ACE1 EA10 PO (16:32)
[2023-07-06 16:45] VITALS: BP 136/69
== END 2023-07-06 16:45 | disposition home or self-care (01) ==
LOC: ED 13:56
DX: S80.12XA Contusion of left lower leg, initial encounter (principal); S70.12XA Contusion of left thigh, initial encounter; E66.01 Morbid (severe) obesity due to excess calories; W18.30XA Fall on same level, unspecified, initial encounter; Z88.0 Allergy status to penicillin; Z88.8 Allergy status to other drugs, medicaments and biological substances; Z79.899 Other long term (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; Z86.73 Personal history of transient ischemic attack (TIA), and cerebral infarction without residual deficits
CPT/HCPCS: 72170; 73552; 73560; 99283-25; A9270

== ENCOUNTER 2023-07-24 04:46 | Emergency (ER) | payer OTHER ==
[~2023-07-24] VITALS: Ht 147.3 cm; Wt 194.0 kg
[2023-07-24 05:26] LABS: ALBUMIN 1.9 g/dL (3.4-5.0); ALBUMIN/GLOBULIN RATIO 0.39 (1.1-2.4); ANION GAP 14.2 (7-21); BILIRUBIN, TOTAL 0.4 ng/dL (0.2-1.0); BUN/CREATININE RATIO 15.47 (6.0-28.6); CALCIUM 8.2 mg/dL (8.5-10.1); CREATININE, SERUM 0.84 mg/dL (0.55-1.02); POTASSIUM 5.2 mmol/L (3.5-5.1); PROTEIN, TOTAL 6.8 g/dL (6.4-8.2)
[2023-07-24 05:54] LABS: BASOPHILS 0.9 % (0-2); EOSINOPHILS 3.5 % (0-6); HEMATOCRIT 31.9 % (35.0-50.0); HEMOGLOBIN 9.4 g/dL (12.0-18.0); LYMPHOCYTES 22.1 % (24-44); MCH 23.6 (27-36); MCHC 29.6 g/dl (30-36); MCV 79.8 fl (81-99); MONOCYTES 8.3 % (0-12); NEUTROPHILS 65.2 % (39-80); PLATELET COUNT 312 K/uL (140-440); RBC 3.99 M/ul (4.3-5.7); RDW 20.4 (10.5-15.0)
[2023-07-24 06:36] LABS: BILIRUBIN, URINE POSITIVE (negative); BLOOD/HGB, URINE TRACE-I (Negative); KETONE, URINE NEGATIVE (Negative); LEUK ESTERASE, URINE MODERATE (negative); NITRITE, URINE POSITIVE (negative)
[2023-07-24 06:53] LABS: BACTERIA, URINE 4+ /hpf (negative); CASTS, URINE NONE SEEN \\lpf; COLLECTION TYPE, URINE CLEAN CATCH; CRYSTALS, URINE NONE SEEN (0-1+); EPITHELIAL CELLS, URINE SQUAMOUS 3+ /lpf (0-1+); REFLEX CULTURE, URINE No (No)
[2023-07-24] MEDS ORDERED: MACROBID 100 M100 MG PO (06:56)
[2023-07-24] MEDS ORDERED: PYRIDIUM200 MG PO (07:01)
[2023-07-24 07:11] VITALS: BP 133/76
== END 2023-07-24 07:35 | disposition home or self-care (01) ==
LOC: ED 04:46
PROVIDERS: Family Medicine
DX: N39.0 Urinary tract infection, site not specified (principal); E66.9 Obesity, unspecified; E11.9 Type 2 diabetes mellitus without complications; Z86.73 Personal history of transient ischemic attack (TIA), and cerebral infarction without residual deficits; Z88.0 Allergy status to penicillin; Z88.8 Allergy status to other drugs, medicaments and biological substances; Z79.899 Other long term (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; Z79.01 Long term (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
CPT/HCPCS: 36415; 74177; 80053; 81001; 84703; 85025; 96361; 96375; 99284-25; J0780; J1170; J2270; J7030; Q9967

== ENCOUNTER 2023-10-29 06:54 | Day surgery (SDC) | payer OTHER ==
[2023-10-27 09:24] VITALS: BP 115/78
[~2023-10-29] VITALS: Ht 147.3 cm; Wt 175.4 kg
[~2023-10-29 06:54] MED LIST changes: +ESTROVEN MAX400 MCG PO; +MACROBID 100 M100 MG PO; +MIDAZOLAM HCL 5 MG/5 ML VIAL IV PRN; +PYRIDIUM200 MG PO; +fentaNYL citrate 100 MCG/2 ML VIAL IV PRN; +propofoL 200 MG/20 ML VIAL ONE
[2023-10-29] MEDS ORDERED: LIDOCAINE HCL 1% 5 ML SDV INJ ONE (07:00)
[2023-10-29] MEDS ORDERED: LACTATED RINGER'S 1,000 ML IV SCH (07:00)
[2023-10-29] MEDS ORDERED: IBLOOD GLUCOSE TEST STRIP 1 EA TEST VI PRN (07:00)
[2023-10-29] MEDS ORDERED: ENOXAPARIN SODIUM 40 MG/0.4 ML SYR SUB-Q SCH (07:00)
--- NOTE | 2023-10-29 07:17 | NUR ---
VISITED DURING SPIRITUAL CARE ROUNDS. PT INDICATED NERVOUSNESS. I LISTENED EMPATHETICALLY; NORMALIZE PT EXPERIENCE; PROVIDED ANXIETY CONTAINMNET; PROVIDED PRAYER. PT EXPRESSED GRATITUDE.
[2023-10-29 07:28] VITALS: BP 128/63
--- NOTE | 2023-10-29 09:02 | NUR ---
10/29/23 0902 Alisson Foreman 0827-PATIENT ARRIVED TO PACU ON 10L MASK RR EVEN ORAL AIRWAY IN PLACE. NONAROUSABLE LAYING LEFT LATERAL ABDOMEN ROUND AND SOFT. SR HR 70'S PLACED ON 6L RR EVEN 96% 0900-PATIENT AROUSING ORAL AIRWAY REMOVED. ORIENTED TO PACU. GLUCOSE 148. 6L MASK 94% RR EVEN. HOB ELEVATED. ENCOURAGED TOT JEANNETTE DEEP BREATHES. PATIENT REPORTS "LEGS HURT" EYES CLOSED.
[2023-10-29 09:40] VITALS: BP 138/91
--- NOTE | 2023-10-29 10:38 | OR ---
[facility] [address] [place], [place] [address] Signed DATE OF OPERATION: 10/29/2023 SURGEON: Jose Webber MD PREOPERATIVE DIAGNOSES: 1. Screening. 2. Internal anal skin tags. POSTOPERATIVE DIAGNOSES: 1. Internal anal skin tag. 2. Moderately poor bowel prep. PROCEDURE: Colonoscopy without biopsy. ESTIMATED BLOOD LOSS: None. INDICATIONS: Dylan is a 48-year-old morbidly obese female with a body mass index of 85. She has been asked to see me for a followup colonoscopy. She has no lower GI complaints. There is no family history of colon cancer or polyps. I helped her with a colonoscopy in 2011 at the age of 36. She had internal anal skin tags. Of course, she always requires monitored anesthesia care due to her body mass index and all her aggravating issues and her past medical history. At one point, she did get down to around 290 pounds and had gastric bypass surgery. Unfortunately, she is back up over 400 pounds. She has also had troubles with recurrent abdominal wall hernias. In the office, I met with Dylan and her sister. I gave them our brochure on colonoscopy. We reviewed the nature of the test. There is risk including, but not limited to gas bloating, crampy abdominal pain, bleeding, perforation requiring surgery, and missed diagnosis. We also talked at length regarding her gastric bypass surgery and perform a double bowel prep starting 1st thing in the morning. This would include eight Dulcolax tablets throughout the day as well as an entire gallon of polyethylene glycol. Overall, I think she did okay, but her prep was moderate today. I think another 32 ounces or so she would have been much dry cleaner. We also reviewed the need for monitored anesthesia care. We did have her see our anesthesia providers preoperatively and we did obtain her last cardiac record that we can find from 2019. Dylan had expressed understanding and wished to proceed. DESCRIPTION OF PROCEDURE: Dylan was taken into the endoscopy suite and placed in the left lateral decubitus Electronically Signed By: JOSE WEBBER MD 10/29/23 1038 PATIENT NAME: DYLAN ROMERO OPERATIVE REPORT DATE OF : 79 REPORT #: [id number] PHYSICIAN: JOSE WEBBER MD PCP: JONES DAVISON MD REPORT IS CONFIDENTIAL AND NOT TO BE RELEASED WITHOUT AUTHORIZATION [facility] [address] [place] [id number] Signed position. She was given monitored anesthesia care with propofol infusion per our nurse applicator sprayer. A digital rectal exam was performed and this was unremarkable. She had good sphincter tone. No external hemorrhoids. No masses. The adult colonoscope was introduced and advanced under direct visualization of the camera without much difficulty. Unfortunately, the prep was moderate. There was enough particulate stool matter that I could not suction out areas of liquid particulate stool. We made it around about 110 cm and what we thought was her cecum. We irrigated quite a bit, ever really could see the appendiceal orifice and we had trouble identify what we thought would be the ileocecal valve. It is always possible we were at the hepatic flexure. Nevertheless, we could not find a way any further and there was enough liquid particulate stool matter that it was unsafe. At that point, we slowly withdrew the scope. We found no pathology throughout her entire colon or rectum. Upon retroflexion of the scope, we did see a single internal anal skin tag. After this, the gas suctioned out and the colonoscope removed. Dylan tolerated the procedure quite well. RECOMMENDATIONS: Dylan can follow up in 10 years for repeat screening colonoscopy if her health holds up. Jose Webber MD ALB/MODL /[id number] cc: MD Jones Vaz MD Copies: JOSE WEBBER MD, ROBERT D DMD ~ Electronically Signed By: JOSE WEBBER MD 10/29/23 1038 PATIENT NAME: DYLAN ROMERO OPERATIVE REPORT DATE OF : 79 REPORT #: [id number] PHYSICIAN: JOSE WEBBER MD PCP: JONES DAVISON MD REPORT IS CONFIDENTIAL AND NOT TO BE RELEASED WITHOUT AUTHORIZATION
[2023-10-30 09:08] LABS: HEPATITIS B SURFACE ANTIGEN Negative (Negative)
[2023-10-30 12:29] LABS: HIV 1,2 COMBO ANTIGEN/ANTIBODY Negative (Negative)
[2023-10-30 12:58] LABS: HEPATITIS C AB CIA INTERP Negative (Negative); HEPATITIS C ANTIBODY CIA INDEX 0.08 IV (())
== END 2023-10-29 09:35 | disposition home or self-care (01) ==
LOC: DS 06:54
PROVIDERS: ATTEND Colon & Rectal Surgery
PROC: 0DJD8ZZ Inspection of Lower Intestinal Tract, Via Natural or Artificial Opening Endoscopic (ICD-10-PCS; principal; 2023-10-29 08:15)
DX: Z12.11 Encounter for screening for malignant neoplasm of colon (principal); K64.8 Other hemorrhoids; I11.0 Hypertensive heart disease with heart failure; I50.30 Unspecified diastolic (congestive) heart failure; E03.9 Hypothyroidism, unspecified; E11.9 Type 2 diabetes mellitus without complications; E66.2 Morbid (severe) obesity with alveolar hypoventilation; Z68.45 Body mass index [BMI] 70 or greater, adult; Z88.0 Allergy status to penicillin; Z88.6 Allergy status to analgesic agent; Z79.899 Other long term (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
CPT/HCPCS: 00811; 36415; 84703; 86803; 87340; J1650; J2704; J7121

== ENCOUNTER 2024-03-10 13:36 | Observation (INO) | payer OTHER ==
[~2024-03-10] VITALS: Ht 147.3 cm; Wt 139.4 kg
[~2024-03-10 13:36] MED LIST changes: -MIDAZOLAM HCL 5 MG/5 ML VIAL IV PRN; -NEURONTIN100 MG PO; -PAXIL20 MG; -fentaNYL citrate 100 MCG/2 ML VIAL IV PRN; -propofoL 200 MG/20 ML VIAL ONE
[2024-03-10] MEDS ORDERED: HYDROmorphone HCL 1 MG/ML SYR IV ONE ×2 (14:15→16:00)
[2024-03-10] MEDS ORDERED: NITROGLYCERIN 0.4 MG SUBL SL PRN (14:15)
[2024-03-10] MEDS ORDERED: LORazepam 2 MG/ML VIAL IV ONE ×2 (14:15→16:00)
[2024-03-10 14:22] LABS: BASOPHILS 1.3 % (0-2); EOSINOPHILS 1.9 % (0-6); HEMATOCRIT 39.8 % (35.0-50.0); HEMOGLOBIN 12.2 g/dL (12.0-18.0); LYMPHOCYTES 26.2 % (24-44); MCH 23.3 (27-36); MCHC 30.6 g/dl (30-36); MCV 76.2 fl (81-99); MONOCYTES 7.7 % (0-12); NEUTROPHILS 62.9 % (39-80); PLATELET COUNT 374 K/uL (140-440); RBC 5.22 M/ul (4.3-5.7); RDW 18.8 (10.5-15.0)
[2024-03-10 14:28] LABS: PARTIAL THROMBOPLASTIN TIME 31.8 Sec (22.9-41.3); PROTIME 12.5 Sec (11.2-14.2)
[2024-03-10 14:35] LABS: ALBUMIN/GLOBULIN RATIO 0.67 (1.1-2.4); ALKALINE PHOSPHATASE 136 U/L (46-116); ALT (SGPT) 19 U/L (14-59); ANION GAP 19.1 (7-21); AST (SGOT) 16 U/L (15-37); BILIRUBIN, TOTAL 0.5 ng/dL (0.2-1.0); BUN/CREATININE RATIO 12.32 (6.0-28.6); CALCIUM 9.3 mg/dL (8.5-10.1); CARBON DIOXIDE 21 mmol/L (21-32); CHLORIDE 99 mmol/L (98-107); CREATININE, SERUM 0.73 mg/dL (0.55-1.02); GLOMERULAR FILTRATION RATE,EST 102 mL/min (>60); MAGNESIUM 1.4 mg/dL (1.8-2.4); POTASSIUM 5.1 mmol/L (3.5-5.1); PROTEIN, TOTAL 7.5 g/dL (6.4-8.2); UREA NITROGEN 9 mg/dL (7-18)
--- NOTE | 2024-03-10 15:42 | EKG ---
[facility] [address] [facility] [place], [place] [address] Signed Sinus tachycardia Right axis deviation Low voltage QRS Cannot rule out Anteroseptal infarct , age undetermined Abnormal ECG When compared with ECG of 27-OCT-2023 09:39, QRS axis shifted right Minimal criteria for Anteroseptal infarct are now present Confirmed by Isma Rivera ([id number]) on 03/10/2024 3:42:18 PM Electronically Signed By: ISMA RIVERA MD 03/10/24 1542 PATIENT NAME: DYLAN ROMERO Electrocardiogram DATE OF : 79 PHYSICIAN: ISMA RIVERA MD REPORT #: [id number] REPORT IS CONFIDENTIAL AND NOT TO BE RELEASED WITHOUT AUTHORIZATION
[2024-03-10 15:52] LABS: INFLUENZA B NAA NEGATIVE (NEGATIVE); RESPIRATORY SYNCYTIAL VIR NAA NEGATIVE (NEGATIVE)
[2024-03-10] MEDS ORDERED: MAGNESIUM HYDROXIDE 30 ML UDC PO PRN (17:30)
[2024-03-10] MEDS ORDERED: ACETAMINOPHEN 325 MG TAB PO PRN (17:30)
[2024-03-10] MEDS ORDERED: PROCHLORPERAZINE EDISYLATE 10 MG/2 ML VIAL IV PRN (17:30)
[2024-03-10] MEDS ORDERED: PANTOPRAZOLE SODIUM 40 MG/10 ML VIAL IV SCH (17:32)
[2024-03-10] MEDS ORDERED: ENOXAPARIN SODIUM 120 MG/0.8 ML SYR SUB-Q SCH (17:45)
[2024-03-10] MEDS ORDERED: atenoloL 100 MG TAB PO SCH (17:58)
[2024-03-10] MEDS ORDERED: DULOXETINE HCL 60 MG CAP PO SCH (17:59)
[2024-03-10] MEDS ORDERED: ENOXAPARIN SODIUM 150 MG/ML SUB-Q SCH (18:00)
[2024-03-10] MEDS ORDERED: GABAPENTIN 300 MG CAP PO PRN (18:00)
[2024-03-10] MEDS ORDERED: PRAMIPEXOLE DIHYDROCHLORIDE 0.25 MG TAB PO SCH (18:15)
[2024-03-10] MEDS ORDERED: SUCRALFATE 1 GM TAB PO SCH (18:15)
[2024-03-10] MEDS ORDERED: TIZANIDINE HCL 4 MG TABLET PO PRN (18:15)
[2024-03-10 18:30] VITALS: BP 110/66
--- NOTE | 2024-03-10 18:46 | NUR ---
PT ARRIVES TO FLOOR AT APPROXIMATELY 1810. RECEIVED REPORT FROM KELSIE DAVID. PT TRANSFERS FROM ER BED TO ROOM BED INDEPENDENTLY. PT STATES PAIN IS 8/10 IN LEGS/STOMACH/HEAD, PT DECLINES TYLENOL, STATES IT DOES NOT HELP. PT REQUESTS ICE WATER AND SNACK, GIVEN. PT ABLE TO REPORT HEALTH HISTORY INDEPENDENTLY. MULTIPLE SPOTS OF SKIN BREAKDOWN SEEN DURING TWO RN SKIN CHECK UPON PT ARRIVAL PRIMARILY ON PANNUS WELL AND SOME REDNESS IN THE CRISTINA AREA. PT REQUESTS GABAPENTIN AVAILABLE. PT STATES NO FURTHER NEEDS AT THIS TIME, CALL LIGHT WITHIN REACH. VSS.
--- NOTE | 2024-03-10 19:27 | NUR ---
shift report received from dayshift ivelisse riggs at bedside, pt awake and resting in bed. us in room completing orders. no needs or concerns verbalized by pt. board updated and call light in reach.
[2024-03-10] MEDS ORDERED: diazePAM 5 MG TAB PO PRN (20:45)
[2024-03-10] MEDS ORDERED: MAGNESIUM REPLACEMENT PROTOCOL ORAL/IV IV SCH (20:45)
--- NOTE | 2024-03-10 20:58 | NUR ---
PT CALLED NEAR 2014 REQUESTING PAIN MEDICATION, NAUSEA MEDICATION. THIS RN INTO ROOM, PT CRYING, STATING HER LEGS, AND SIDE HURT, HURTS TO BREATH, PT LAYING IN BED, HEAD NEARLY AT THE BED OF THE BED, UNABLE TO ASSIST SELF IN REPOSITIONING. PT ABLE TO STAND UP WITH WALKER, MIMINAL ASSIST TO ROLL OVER, AND STAND. MOVED SELF TO HEAD OF BED, SAT ON BED. REASSURANCE GIVEN, PRN ZANAFLEX GIVEN; COMPAZINE IV OVER 3 MIN GIVEN 2035. FRESH ICE WATER GIVEN; AT THIS TIME PT IS IN BED, FEET ELEVATED, HOB ELEVATED; ON PHONE.
[2024-03-10] MEDS ORDERED: INSULIN LISPRO 100 UNIT/ML ML SUB-Q SCH (21:00)
[2024-03-10] MEDS ORDERED: IBLOOD GLUCOSE TEST STRIP 1 EA TEST XX SCH (21:00)
[2024-03-10] MEDS ORDERED: MELATONIN 3 MG TAB PO PRN (21:00)
[2024-03-10] MEDS ORDERED: IBLOOD GLUCOSE TEST STRIP 1 EA TEST VI SCH (21:00)
[2024-03-10 21:30] VITALS: BP 113/74
--- NOTE | 2024-03-10 21:36 | NUR ---
CALL LIGHT ANSWERED. PT NEEDED TO HAVE A BM. COLLABORATIVE PHYSICIAN GAVE PT NON SLIP SOCKS AND ASSISTED PT WITH FWW TO BATHROOM. PT HAD LARGE BM. PT ASSISTED WITH WIPING AND IS BACK IN BED. COLLABORATIVE PHYSICIAN OBTAINED VITALS AND I&O. BLOOD SUGAR CHECKED. BLOOD SUGAR WAS 403. RN NOTIFED. PT STATES NO FURTHER NEEDS AT THIS TIME. CALL LIGHT WITHIN REACH.
--- NOTE | 2024-03-10 21:55 | NUR ---
DR ORELLANA CALLED AND INFORMED PER EMAR OF BLOOD SUGAR RESULT OF 403. TELEPHONE ORDER READ BACK TO GIVE ORDERED INSULIN SS NOW (11 UNITS) AND RECHECK IN 1 HR, IF STILL HIGH (IN THE 300'S), THEN REPEAT INSULIN SS DIRECTED. TELEPHONE ORDER READ BACK TO ALSO COLLECT AN G1L-IWG BE AN ADD ON FROM PREVIOUS BLOOD WORK. DISASTER RECOVERY CONSULTANTKELSIE GOODE UPDATED AND AWARE. ASSESSMENT COMPLETED AND INSULIN SS GIVEN. YEAST SMELLING ODER FROM UNDER BREASTS AND PANNUS, EXCORAITION NOTED. pt REMAINS ON RA, SOB WITH ACTIVITY REPORTED, DENIES AT REST. CALL LIGHT IN REACH.
--- NOTE | 2024-03-10 23:02 | NUR ---
SOLAR SITE ASSESSMENT SPECIALIST PLACED PT ON A CPOX AT RN REQUEST. PT STATES NO NEEDS AT THIS TIME. CALL LIGHT WITHIN REACH.
--- NOTE | 2024-03-10 23:15 | NUR ---
IRRIGATING PUMP OPERATOR RECHECKED PT BLOOD SUGAR AT RN REQUEST. PT BLOOD SUGAR IS 350. RN NOTIFED. PT STATES NO FURTHER NEEDS AT THIS TIME. CALL LIGHT WITHIN REACH.
[2024-03-10] MEDS ORDERED: INSULIN LISPRO 100 UNIT/ML ML SUB-Q ONE (23:45)
--- NOTE | 2024-03-10 23:45 | NUR ---
DR ORELLANA MADE AWARE OF BLOOD SUGAR RECHECK RESULT OF 350, PER DR ORELLANA, OKAY TO CONTINUE AND GIVE 9 ADDITIONAL UNITS INSULIN LISPRO SUB-Q PER ORIGINAL SS ORDER-SEE EMAR.
[2024-03-11 01:48] VITALS: BP 108/64
--- NOTE | 2024-03-11 01:50 | NUR ---
ROPE WALKER OBTAINED VITALS AND I&O. PT BLOOD SUGAR CHECKED AND WAS 195. RN NOTFIED. PT STATES NO FURTHER NEEDS AT THIS TIME. CALL LIGHT WITHIN REACH.
--- NOTE | 2024-03-11 02:05 | NUR ---
SCHEDULED ENOXAPARING GIVEN-SEE EMAR. DISCUSSED EARLIER IN SHIFT WITH DR ORELLANA VIA PHONE REGARDING ORDER AND CONFIRMED SHE WANTED 0100 ORDERED DOSE GIVEN. PHOTO CONSENT AND PHOTOS TAKEN UNDER BILATERAL BREASTS AND UNDER PANNUS. SKIN FOLDS WITH HIGH MOISTURE AND FOUL YEAST LIKE ORDER AND EXCORIATIONS. PREPARATION SUPERVISOR CANNING IN ROOM FOR 2ND RN SKIN ASSESSMENT. ABD WITH HERNIA LIKE APPEARANCE, NO CAHNGE FROM START OF SHIFT. pt REPORTS HX HERNIA. NO FURTHER NEEDS, CALL LIGHT IN REACH. NIO FOR DESENEX POWDER ORDERED, WARP CLAMPER ADE MADE AWARE.
[2024-03-11] MEDS ORDERED: MICONAZOLE NITRATE 1 EA BTL TOP SCH (02:31)
--- NOTE | 2024-03-11 04:21 | NUR ---
pt AWAKE AND RESTING IN BED, DENIES S/SX OF HYPOGLYCEMIA. NO DISTRESS NOTED. CPOX IN PLACE, SPO2 AND HR WNL. CALL LIGHT IN REACH.
[2024-03-11 05:29] LABS: BASOPHILS 1.1 % (0-2); EOSINOPHILS 3.3 % (0-6); HEMATOCRIT 36.6 % (35.0-50.0); HEMOGLOBIN 11.2 g/dL (12.0-18.0); LYMPHOCYTES 34.5 % (24-44); MCH 23.3 (27-36); MCHC 30.5 g/dl (30-36); MCV 76.4 fl (81-99); MONOCYTES 9.4 % (0-12); NEUTROPHILS 51.7 % (39-80); PLATELET COUNT 347 K/uL (140-440); RBC 4.79 M/ul (4.3-5.7); RDW 18.8 (10.5-15.0)
[2024-03-11 05:51] LABS: ALBUMIN 2.6 g/dL (3.4-5.0); ALBUMIN/GLOBULIN RATIO 0.65 (1.1-2.4); ANION GAP 13.9 (7-21); BILIRUBIN, TOTAL 0.5 ng/dL (0.2-1.0); BUN/CREATININE RATIO 18.96 (6.0-28.6); CALCIUM 8.6 mg/dL (8.5-10.1); CREATININE, SERUM 0.58 mg/dL (0.55-1.02); MAGNESIUM 1.7 mg/dL (1.8-2.4); POTASSIUM 3.9 mmol/L (3.5-5.1); PROTEIN, TOTAL 6.6 g/dL (6.4-8.2)
[2024-03-11 06:04] VITALS: BP 113/62
--- NOTE | 2024-03-11 06:06 | NUR ---
METAL SANDER OBTAINED VITALS AND INTAKE. NO NEW OUTPUT NOTED. PT DENIES NEED TO VOID. PT STATES NO FURTHER NEEDS AT THIS TIME. CALL LIGHT WITHIN REACH.
--- NOTE | 2024-03-11 06:40 | NUR ---
SCHEDULED CARAFET GIVEN-SEE EMAR. NO FURTHER NEEDS OR CONCERNS VERBALIZED. CALL LIGHT IN REACH.
--- NOTE | 2024-03-11 07:45 | NUR ---
RECIEVED SHIFT REPORT. PT IS AWAKE IN BED. DENIES NEEDS AT THIS TIME.
[2024-03-11] MEDS ORDERED: LOVENOX150 MG SUB-Q (08:17)
[2024-03-11] MEDS ORDERED: NYSTATIN15 GM TOP (08:24)
[2024-03-11] MEDS ORDERED: PAXIL40 MG PO (08:54)
--- NOTE | 2024-03-11 09:03 | NUR ---
MORNING ASSESSMENT COMPLETE. PT STATES SHE IS MORE SOB THAN NORMAL. PT IS SLOUCHED IN BED, REFUSED TO BE REPOSITIONED. BREATHING EVEN AND UNLABORED. LUNG SOUNDS CLEAR, DIM BILAT BASES. PT REQUESTED PRN MEDICATIONS FOR MUSCLE SPASMS, AND NAUSEA MEDICATION (SEE EMAR). PT DENIES NEEDS. CALL LIGHT IN REACH.
[2024-03-11 09:09] VITALS: BP 106/73
--- NOTE | 2024-03-11 09:42 | NUR ---
UR CLINICAL REVIEW: [facility]- MEETS OBS CRITERIA FOR PE EOCCO OBS 03/10/24 @ 1338 ORDER MATCHES STATUS AUTH PENDING CLINICAL REVIEW SENDING CLINICALS VIA [facility] THIS AM PLAN TO DC HOME TODAY. 03/12/24
--- NOTE | 2024-03-11 09:57 | NUR ---
MED REC COMPLETE
[2024-03-11] MEDS ORDERED: DEXTROSE 5% 1,000 ML IV PRN (10:15)
[2024-03-11] MEDS ORDERED: GLUCAGON,HUMAN RECOMBINANT 1 MG/ML VIAL SUB-Q PRN (10:15)
[2024-03-11] MEDS ORDERED: IBLOOD GLUCOSE TEST STRIP 1 EA TEST XX PRN (10:15)
[2024-03-11] MEDS ORDERED: DEXTROSE 50% 50 ML SYR IV PRN ×2 (10:15)
--- NOTE | 2024-03-11 11:02 | NUR ---
THIS RN CALLED DR. ORELLANA REGARDING DC ORDER. PER DR. ORELLANA PT IS GOOD TO BE DC'd TODAY, VERIFIED WITH READBACK. INFORMED DR. ORELLANA THAT PT IS HAVING ECHO DONE AT THIS TIME. PER DR. ORELLANA "PT CAN LEAVE ONCE ECHO IS DONE, MAKE SURE RESULTS ARE SENT TO PTs PCP." VERIFIED WITH READBACK.
--- NOTE | 2024-03-11 11:08 | NUR ---
PATIENT DID WASH HER FACE THIS MORNING BEFORE BREAKFAST.
--- NOTE | 2024-03-11 11:15 | NUR ---
PT NOT AVAILABLE FOR VISIT. PROVIDED PRAYER.
[2024-03-11] MEDS ORDERED: PHARMACY RENAL DOSE ADJUSTMENT 1 DOSE MISC PO SCH (12:00)
[2024-03-12] MEDS ORDERED: PANTOPRAZOLE SODIUM 40 MG TABEC PO SCH (09:00)
[2024-03-16 13:17] LABS: FACTOR VIII, ACTIVITY 310 % (56-191); VON WILLEBRAND FACTOR, ACT RCF 287 % (51-215); VON WILLEBRAND FACTOR, ANTIGEN 304 % (52-214)
== END 2024-03-11 12:40 | disposition home or self-care (01) ==
LOC: ED 13:36 → MS 13:38
PROVIDERS: Emergency Medicine; ADMIT Family Medicine; ATTEND Family Medicine
DX: I26.99 Other pulmonary embolism without acute cor pulmonale (principal); F39 Unspecified mood [affective] disorder; E11.65 Type 2 diabetes mellitus with hyperglycemia; E66.01 Morbid (severe) obesity due to excess calories; G89.29 Other chronic pain; F41.9 Anxiety disorder, unspecified; Z79.01 Long term (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; Z79.899 Other long term (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; Z88.0 Allergy status to penicillin; Z88.5 Allergy status to narcotic agent; Z88.8 Allergy status to other drugs, medicaments and biological substances; Z98.84 Bariatric surgery status
CPT/HCPCS: 36415; 71260; 80053; 83036; 83735; 83880; 84484; 85025; 85610; 85730; 87502; 87651; 93005; 93010; 93306; 93970; 94762; 96372; 96375; 96376; 97116; 97162; 97165; 99285-25; A9270; G0378; J0780; J1170; J1650; J1815; J2060; J2470; Q9967; U0002

== ENCOUNTER 2024-06-23 12:27 | Inpatient (IN) | payer OTHER ==
[~2024-06-23] VITALS: Ht 147.3 cm; Wt 162.7 kg
[~2024-06-23 12:27] MED LIST changes: +LOVENOX150 MG SUB-Q; +NYSTATIN15 GM TOP; +PAXIL40 MG PO
[2024-06-23] MEDS ORDERED: CYMBALTA20 MG PO (12:38)
[2024-06-23] MEDS ORDERED: CHLORPROMAZINE100 MG PO (12:40)
[2024-06-23] MEDS ORDERED: VALIUM2 MG PO (12:40)
[2024-06-23 13:12] LABS: BASOPHILS 0.9 % (0-2); EOSINOPHILS 1.9 % (0-6); HEMATOCRIT 30.9 % (35.0-50.0); HEMOGLOBIN 9.6 g/dL (12.0-18.0); LYMPHOCYTES 20.5 % (24-44); MCH 26.6 (27-36); MCV 86.1 fl (81-99); MONOCYTES 9.9 % (0-12); NEUTROPHILS 66.8 % (39-80); PLATELET COUNT 320 K/uL (140-440); RBC 3.59 M/ul (4.3-5.7); RDW 25.5 (10.5-15.0)
[2024-06-23] MEDS ORDERED: SODIUM CHLORIDE 0.9% 1,000 ML IV PRN ×2 (13:15→14:30)
[2024-06-23] MEDS ORDERED: CEFEPIME HCL/D5W 2 GM/100 ML PIGGYBACK IV ONE ×2 (13:15→21:30)
[2024-06-23] MEDS ORDERED: SODIUM CHLORIDE 0.9% 1,000 ML IV ONE (13:15)
[2024-06-23] MEDS ORDERED: DAPTOmycin 500 MG/10 ML VIAL IV ONE ×2 (13:15→13:30)
[2024-06-23 13:26] LABS: ALBUMIN 1.9 g/dL (3.4-5.0); ALBUMIN/GLOBULIN RATIO 0.36 (1.1-2.4); BILIRUBIN, TOTAL 0.3 ng/dL (0.2-1.0); BUN/CREATININE RATIO 16.66 (6.0-28.6); CALCIUM 8.7 mg/dL (8.5-10.1); CREATININE, SERUM 0.84 mg/dL (0.55-1.02); PROTEIN, TOTAL 7.2 g/dL (6.4-8.2)
[2024-06-23] MEDS ORDERED: METOCLOPRAMIDE HCL 10 MG/2 ML SDV IV ONE (13:30)
[2024-06-23] MEDS ORDERED: HYDROmorphone HCL 1 MG/ML SYR IV ONE ×2 (13:30→17:45)
[2024-06-23 13:34] LABS: LACTIC ACID, BLOOD 3.2 mmol/L (0.4-2.0)
[2024-06-23 13:46] LABS: INR 1.1 (0.80-1.30); PROTIME 13.5 Sec (11.2-14.2)
[2024-06-23 13:47] LABS: PARTIAL THROMBOPLASTIN TIME 70.3 Sec (22.9-41.3)
[2024-06-23] MEDS ORDERED: fentaNYL citrate 100 MCG/2 ML VIAL IV ONE ×2 (14:15→15:15)
[2024-06-23 15:15] LABS: INFLUENZA B NAA NEGATIVE (NEGATIVE); RESPIRATORY SYNCYTIAL VIR NAA NEGATIVE (NEGATIVE)
[2024-06-23 15:22] LABS: LACTIC ACID, BLOOD 2.1 mmol/L (0.4-2.0)
[2024-06-23] MEDS ORDERED: LORazepam 2 MG/ML VIAL IV ONE (15:45)
[2024-06-23 15:59] LABS: BILIRUBIN, URINE POSITIVE (negative); BLOOD/HGB, URINE NEGATIVE (Negative); KETONE, URINE TRACE (Negative); LEUK ESTERASE, URINE MODERATE (negative); NITRITE, URINE POSITIVE (negative)
[2024-06-23 16:03] LABS: RED BLOOD CELLS, URINE 0-1 /hpf (0-5); WHITE BLOOD CELLS, URINE >50 /HPF (0-5)
[2024-06-23 16:04] LABS: BACTERIA, URINE 1+ /hpf (negative); CASTS, URINE NONE SEEN \\lpf; COLLECTION TYPE, URINE CLEAN CATCH; CRYSTALS, URINE NONE SEEN (0-1+); EPITHELIAL CELLS, URINE SQUAMOUS 3+ /lpf (0-1+); REFLEX CULTURE, URINE No (No)
[2024-06-23] MEDS ORDERED: ACETAMINOPHEN 325 MG TAB PO PRN (17:00)
[2024-06-23] MEDS ORDERED: DEXTROSE 50% 50 ML SYR IV PRN ×2 (17:00)
[2024-06-23] MEDS ORDERED: LACTATED RINGER'S 1,000 ML IV SCH (17:00)
[2024-06-23] MEDS ORDERED: IBLOOD GLUCOSE TEST STRIP 1 EA TEST XX PRN (17:00)
[2024-06-23] MEDS ORDERED: GLUCAGON,HUMAN RECOMBINANT 1 MG/ML VIAL SUB-Q PRN (17:00)
[2024-06-23] MEDS ORDERED: INSULIN LISPRO 100 UNIT/ML ML SUB-Q SCH (17:00)
[2024-06-23] MEDS ORDERED: PROCHLORPERAZINE EDISYLATE 10 MG/2 ML VIAL IV PRN (17:00)
[2024-06-23] MEDS ORDERED: DEXTROSE 5% 1,000 ML IV PRN (17:00)
[2024-06-23] MEDS ORDERED: IBLOOD GLUCOSE TEST STRIP 1 EA TEST VI SCH (17:00)
[2024-06-23] MEDS ORDERED: atenoloL 100 MG TAB PO SCH (17:05)
[2024-06-23 18:01] VITALS: BP 124/59
[2024-06-23] MEDS ORDERED: diazePAM 2 MG TAB PO SCH (19:49)
[2024-06-23] MEDS ORDERED: OXYCODONE HCL 5 MG TAB PO PRN (20:00)
[2024-06-23 20:44] VITALS: BP 116/59
[2024-06-23 20:52] VITALS: BP 116/59
[2024-06-23] MEDS ORDERED: ALBUTEROL SULFATE 0.083% 3 ML VIAL INH PRN (21:00)
[2024-06-23] MEDS ORDERED: ENOXAPARIN SODIUM 40 MG/0.4 ML SYR SUB-Q SCH (21:00)
[2024-06-23] MEDS ORDERED: MELATONIN 3 MG TAB PO PRN (21:00)
[2024-06-23] MEDS ORDERED: MICONAZOLE NITRATE 1 EA BTL TOP SCH (21:00)
[2024-06-23] MEDS ORDERED: PRAMIPEXOLE DIHYDROCHLORIDE 0.25 MG TAB PO SCH (21:00)
[2024-06-23] MEDS ORDERED: GABAPENTIN 300 MG CAP PO SCH (21:00)
[2024-06-24] VITALS (12 sets, daily range): BP systolic 120–133; BP diastolic 60–69
[2024-06-24 05:36] LABS: BASOPHILS 0.8 % (0-2); EOSINOPHILS 2.3 % (0-6); HEMATOCRIT 27.5 % (35.0-50.0); HEMOGLOBIN 8.3 g/dL (12.0-18.0); LYMPHOCYTES 26.5 % (24-44); MCH 26.1 (27-36); MCHC 30.2 g/dl (30-36); MCV 86.6 fl (81-99); MONOCYTES 10.8 % (0-12); NEUTROPHILS 59.6 % (39-80); PLATELET COUNT 365 K/uL (140-440); RBC 3.18 M/ul (4.3-5.7); RDW 25.6 (10.5-15.0)
[2024-06-24 05:41] LABS: ANION GAP 15.3 (7-21); BUN/CREATININE RATIO 14.51 (6.0-28.6); CALCIUM 8.3 mg/dL (8.5-10.1); CREATININE, SERUM 0.62 mg/dL (0.55-1.02); MAGNESIUM 1.5 mg/dL (1.8-2.4); POTASSIUM 4.3 mmol/L (3.5-5.1)
[2024-06-24] MEDS ORDERED: CEFEPIME HCL/D5W 2 GM/100 ML PIGGYBACK IV SCH (06:00)
[2024-06-24] MEDS ORDERED: DULOXETINE HCL 20 MG CAP PO SCH (09:00)
[2024-06-24] MEDS ORDERED: chlorproMAZINE HCL 25 MG TAB PO SCH (09:00)
[2024-06-24] MEDS ORDERED: DAPTOmycin 500 MG/10 ML VIAL IV SCH ×2 (09:00)
[2024-06-24] MEDS ORDERED: PARoxetine HCL 20 MG TAB PO SCH (09:00)
[2024-06-24] MEDS ORDERED: SALINE LOCK FLUSH 5 ML SYR IV SCH (10:45)
[2024-06-24] MEDS ORDERED: MAGNESIUM SULFATE 2 GM/50 ML BAG IV ONE (11:45)
[2024-06-24] MEDS ORDERED: PHARMACY RENAL DOSE ADJUSTMENT 1 DOSE MISC PO SCH (12:00)
[2024-06-24] MEDS ORDERED: OXYCODONE HCL 5 MG TAB PO PRN (12:00)
[2024-06-24] MEDS ORDERED: CEFEPIME HCL/D5W 1 GM/100 ML PIGGYBACK IV SCH (14:00)
[2024-06-24] MEDS ORDERED: TRULICITY1.5 MG/0.5 SUB-Q (16:00)
[2024-06-24] MEDS ORDERED: INSULIN GL100 UNIT/2 SUB-Q (16:04)
[2024-06-24] MEDS ORDERED: METFORMIN HCL500 M1 PO (16:04)
[2024-06-25] VITALS (8 sets, daily range): BP systolic 102–125; BP diastolic 50–64
[2024-06-25 05:41] LABS: HEMATOCRIT 26.4 % (35.0-50.0); HEMOGLOBIN 8.2 g/dL (12.0-18.0); MCH 26.4 (27-36); MCHC 31.1 g/dl (30-36); MCV 85.1 fl (81-99); PLATELET COUNT 330 K/uL (140-440); RBC 3.11 M/ul (4.3-5.7); RDW 25.5 (10.5-15.0)
[2024-06-25 05:52] LABS: BUN/CREATININE RATIO 12.69 (6.0-28.6); CALCIUM 8.2 mg/dL (8.5-10.1); CREATININE, SERUM 0.63 mg/dL (0.55-1.02); MAGNESIUM 1.5 mg/dL (1.8-2.4)
[2024-06-25 06:16] LABS: BASOPHILS, MANUAL DIFF 1; EOSINOPHILS, MANUAL DIFF 3; LYMPHOCYTES, MANUAL DIFF 21; MONOCYTES, MANUAL DIFF 12; NEUTROPHILS, MANUAL DIFF 63
[2024-06-25] MEDS ORDERED: MAGNESIUM SULFATE 2 GM/50 ML BAG IV ONE (10:00)
[2024-06-25] MEDS ORDERED: OXYCODONE HCL 5 MG TAB PO PRN (10:45)
[2024-06-25] MEDS ORDERED: VALIUM2 MG PO (16:44)
[2024-06-25] MEDS ORDERED: LATUDA40 MG PO (16:45)
[2024-06-25] MEDS ORDERED: CHLORPROMAZINE100 MG PO (16:46)
[2024-06-26] VITALS (7 sets, daily range): BP systolic 111–140; BP diastolic 55–81
[2024-06-26 05:46] LABS: HEMATOCRIT 29.1 % (35.0-50.0); HEMOGLOBIN 8.8 g/dL (12.0-18.0); MCH 26.2 (27-36); MCHC 30.1 g/dl (30-36); MCV 86.9 fl (81-99); PLATELET COUNT 325 K/uL (140-440); RBC 3.35 M/ul (4.3-5.7); RDW 25.4 (10.5-15.0)
[2024-06-26 05:58] LABS: ANION GAP 11.9 (7-21); BUN/CREATININE RATIO 13.11 (6.0-28.6); CALCIUM 8.6 mg/dL (8.5-10.1); CREATININE, SERUM 0.61 mg/dL (0.55-1.02); MAGNESIUM 1.7 mg/dL (1.8-2.4); POTASSIUM 3.9 mmol/L (3.5-5.1)
[2024-06-26 06:16] LABS: BANDS, MANUAL DIFF 2; BASOPHILS, MANUAL DIFF 1; EOSINOPHILS, MANUAL DIFF 1; LYMPHOCYTES, MANUAL DIFF 29; MONOCYTES, MANUAL DIFF 6; NEUTROPHILS, MANUAL DIFF 61
[2024-06-26] MEDS ORDERED: MAGNESIUM SULFATE 2 GM/50 ML BAG IV ONE (09:00)
--- NOTE | 2024-06-26 12:14 | EKG ---
[facility] [address] [place] [address] Signed Sinus tachycardia Rightward axis Low voltage QRS Borderline ECG When compared with ECG of 10-MAR-2024 14:22, Minimal criteria for Anteroseptal infarct are no longer present Nonspecific T wave abnormality no longer evident in Anterior leads Confirmed by Airam Kauffman MD ([id number]) on 06/26/2024 12:14:20 PM Electronically Signed By: AIRAM KAUFFMAN DO 06/26/24 1214 PATIENT NAME: DYLAN ROMERO Electrocardiogram DATE OF : 79 PHYSICIAN: AIRAM KAUFFMAN DO REPORT #: [id number] REPORT IS CONFIDENTIAL AND NOT TO BE RELEASED WITHOUT AUTHORIZATION
[2024-06-26] MEDS ORDERED: FLU VACC TS2024-25(6MOS UP)/PF 1 EACH SYR IM ONE (15:15)
[2024-06-27 05:28] LABS: HEMATOCRIT 25.7 % (35.0-50.0); HEMOGLOBIN 7.9 g/dL (12.0-18.0); MCH 26.8 (27-36); MCHC 30.6 g/dl (30-36); MCV 87.4 fl (81-99); PLATELET COUNT 310 K/uL (140-440); RBC 2.94 M/ul (4.3-5.7); RDW 25.4 (10.5-15.0)
[2024-06-27 05:44] LABS: ANION GAP 9.6 (7-21); BUN/CREATININE RATIO 11.53 (6.0-28.6); CALCIUM 8.2 mg/dL (8.5-10.1); CREATININE, SERUM 0.52 mg/dL (0.55-1.02); MAGNESIUM 1.6 mg/dL (1.8-2.4); POTASSIUM 3.6 mmol/L (3.5-5.1)
[2024-06-27 06:20] LABS: BANDS, MANUAL DIFF 2; EOSINOPHILS, MANUAL DIFF 1; LYMPHOCYTES, MANUAL DIFF 15; MONOCYTES, MANUAL DIFF 9; NEUTROPHILS, MANUAL DIFF 73
[2024-06-27 06:28] VITALS: BP 108/57
[2024-06-27 06:31] VITALS: BP 108/57
[2024-06-27] MEDS ORDERED: MAGNESIUM SULFATE 2 GM/50 ML BAG IV ONE (08:30)
[2024-06-27] MEDS ORDERED: CEPHALEXIN MONOHYDRATE 500 MG CAP PO SCH (09:00)
[2024-06-27] MEDS ORDERED: DOXYCYCLINE HYCLATE 100 MG CAP PO SCH (09:00)
[2024-06-27 09:48] VITALS: BP 119/61
[2024-06-27] MEDS ORDERED: CEPHALEXIN500 MG PO (10:03)
[2024-06-27] MEDS ORDERED: DOXYCYCLINE HY100 MG PO (10:03)
[2024-06-27] MEDS ORDERED: OXYCODONE HCL5 MG PO (10:05)
[2024-06-27 12:42] VITALS: BP 126/66
[2024-06-27 13:22] VITALS: BP 126/66
--- NOTE | 2024-06-29 12:25 | CONS ---
[facility] [address] [place], [place] [address] Signed DATE OF CONSULTATION: 06/25/2024 PROBLEM: Right lower abdominal abscess status post drainage in the emergency room (Dr. Gonzales). HISTORY OF PRESENT ILLNESS: This quite morbidly obese 49-year-old white woman presented to the emergency room with right lower abdominal pain, 05/05 with throbbing and associated subcutaneous mass, considered likely an abscess. The patient has history of pulmonary embolism a number of months ago, was treated initially with apixaban, but in someway was changed to Lovenox b.i.d. subcutaneously as she had a "breakthrough" pulmonary embolus. All of this was about three months ago. In one of the injection sites in the right lower abdomen, she developed firmness and induration. Evaluation was highly suggestive of a subcutaneous infection and she underwent incision and drainage by Dr. Gonzales in the emergency room setting under local anesthesia. Purulent material was obtained. I was consulted by Dr. Garcia, who has admitted the patient for IV antibiotic therapy and other management. Her current medications include Midol caplet, atenolol, duloxetine, diazepam, , Neurontin, tizanidine, Trulicity and paroxetine. Her weight is 343 pounds. Her BMI is unknown to me at this time. She is afebrile. Packing was applied to the drainage site. Consultation was requested by Dr. Garcia for evaluation. Of note, a CT scan was performed following the incision and drainage, which I have reviewed which shows impressive abdominal obesity. The area in question lower abdominal wall pannus shows density which may or may not represent the packing that was placed at the time of incision and drainage. She additionally does have a significant abdominal wall hernia almost with loss of domain from the appearance . REVIEW OF SYSTEMS: She still has some right lower abdominal pain in the subcutaneous area and it is clear. She has no dyspnea or other cardiovascular compromise at this time. PHYSICAL EXAMINATION: GENERAL: Impressively obese white woman, who has a round body configuration based on her significant abdominal obesity and her underlying short stature otherwise. VITAL SIGNS: Her BMI is noted to be 75. She is 4 feet 10 inches and 162.7 kg. NECK: Trachea is midline. She has no dyspnea. ABDOMEN: Abdomen and abdominal pannus is large. In the right lower abdominal wall, there is an area of induration and inflammation. Dressing was removed revealing a putrid odor. Wound packing was removed in completion. Palpation does reveal persistent induration. Electronically Signed By: MORELIA ESTRADA MD 06/29/24 1225 PATIENT NAME: DYLAN ROMERO CONSULTATION DATE OF : 79 REPORT #: [id number] PHYSICIAN: MORELIA ESTRADA MD PCP: JONES DAVISON MD REPORT IS CONFIDENTIAL AND NOT TO BE RELEASED WITHOUT AUTHORIZATION [address] [address] Signed ASSESSMENT: The patient has undergone drainage of abdominal wall abscess which was thought likely related to self-injection of Lovenox for ongoing pulmonary embolism issue. She has no clinical manifestations of pulmonary embolism at this time. I have removed the gauze packing and applied an ABD. I am hopeful and optimistic that persistent drainage will be afforded without further need for operative intervention. She is on antibiotics currently which include cefepime and daptomycin. Although there is a sizable large incisional hernia that is no way near for the abscess and therefore this does not represent necessitation of bowel to the abdominal wall from the hernia itself. We will have the patient shower at least daily and allow water to travel into the area in question. I am hopeful and optimistic that continued antibiotic use will allow for resolution of the problem without need for additional surgical intervention, though if it is required, one would certainly break down any loculations that remain provide counter incision and a loop type drain either with Weston or vessel loop. I will review this with Dr. Garcia, her primary provider at this time. MD CARMEN Mccall/CARLOSL /[id number] cc: Dr. Radha Garcia DC Copies: JACK GARCIA DC ~ Electronically Signed By: MORELIA ESTRADA MD 06/29/24 1225 PATIENT NAME: DYLAN ROMERO CONSULTATION DATE OF : 79 REPORT #: [id number] PHYSICIAN: MORELIA ESTRADA MD PCP: JONES DAVISON MD REPORT IS CONFIDENTIAL AND NOT TO BE RELEASED WITHOUT AUTHORIZATION
== END 2024-06-27 13:30 | disposition home or self-care (01) | DRG 871 ==
LOC: ED 12:27 → MS 17:07
PROVIDERS: Emergency Medicine; ADMIT Student in an Organized Health Care Education/Training Program; ATTEND Student in an Organized Health Care Education/Training Program
PROC: 02HV33Z Insertion of Infusion Device into Superior Vena Cava, Percutaneous Approach (ICD-10-PCS; principal; 2024-06-23)
PROC: 3E03329 Introduction of Other Anti-infective into Peripheral Vein, Percutaneous Approach (ICD-10-PCS; 2024-06-23)
DX: A41.9 Sepsis, unspecified organism (principal); J96.01 Acute respiratory failure with hypoxia; L02.211 Cutaneous abscess of abdominal wall; E66.2 Morbid (severe) obesity with alveolar hypoventilation; N39.0 Urinary tract infection, site not specified; Z68.44 Body mass index [BMI] 60.0-69.9, adult; E11.40 Type 2 diabetes mellitus with diabetic neuropathy, unspecified; G25.81 Restless legs syndrome; F31.9 Bipolar disorder, unspecified; F41.1 Generalized anxiety disorder; K43.9 Ventral hernia without obstruction or gangrene; G43.909 Migraine, unspecified, not intractable, without status migrainosus; Z86.73 Personal history of transient ischemic attack (TIA), and cerebral infarction without residual deficits; Z98.84 Bariatric surgery status; Z86.14 Personal history of Methicillin resistant Staphylococcus aureus infection; Z86.711 Personal history of pulmonary embolism; Z88.0 Allergy status to penicillin; Z88.1 Allergy status to other antibiotic agents; Z88.8 Allergy status to other drugs, medicaments and biological substances; Z79.899 Other long term (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; Z98.890 Other specified postprocedural states; Z99.81 Dependence on supplemental oxygen
CPT/HCPCS: 36415; 36569; 71045; 71260; 74177; 80048; 80053; 81001; 83036; 83605; 83735; 85025; 85060; 85610; 85730; 87040; 87070; 87075; 87205; 87502; 93005; 93010; 94640; 94760; 94761; 94762; A9270; C1751; J0692; J0780; J0878; J1171; J1650; J1815; J2060; J2765; J3010; J3475; J7030; J7121; Q9967; U0002

== ENCOUNTER 2024-07-26 16:32 | Emergency (ER) | payer OTHER ==
[~2024-07-26] VITALS: Ht 147.3 cm; Wt 161.0 kg
[~2024-07-26 16:32] MED LIST changes: +CYMBALTA20 MG PO; +INSULIN GL100 UNIT/2 SUB-Q; +METFORMIN HCL500 M1 PO; +OXYCODONE HCL5 MG PO; +TRULICITY1.5 MG/0.5 SUB-Q; +VALIUM2 MG PO
[2024-07-26 17:00] LABS: BASOPHILS 0.7 % (0-2); EOSINOPHILS 0.9 % (0-6); HEMATOCRIT 33.1 % (35.0-50.0); HEMOGLOBIN 9.8 g/dL (12.0-18.0); LYMPHOCYTES 14.8 % (24-44); MCH 27.1 (27-36); MCHC 29.6 g/dl (30-36); MCV 91.6 fl (81-99); MONOCYTES 7.3 % (0-12); NEUTROPHILS 76.3 % (39-80); PLATELET COUNT 413 K/uL (140-440); RBC 3.62 M/ul (4.3-5.7); RDW 20.6 (10.5-15.0)
[2024-07-26 17:14] LABS: ALBUMIN 2.6 g/dL (3.4-5.0); ALBUMIN/GLOBULIN RATIO 0.52 (1.1-2.4); BILIRUBIN, TOTAL 0.9 ng/dL (0.2-1.0); BUN/CREATININE RATIO 8.23 (6.0-28.6); CALCIUM 9.2 mg/dL (8.5-10.1); CREATININE, SERUM 0.85 mg/dL (0.55-1.02); PROTEIN, TOTAL 7.6 g/dL (6.4-8.2)
[2024-07-26] MEDS ORDERED: METOCLOPRAMIDE HCL 10 MG/2 ML SDV IV ONE (17:15)
[2024-07-26] MEDS ORDERED: HYDROmorphone HCL 1 MG/ML SYR IV ONE ×2 (17:15→19:00)
[2024-07-26] MEDS ORDERED: SODIUM CHLORIDE 0.9% 1,000 ML IV PRN (17:15)
[2024-07-26 17:59] LABS: INFLUENZA B NAA NEGATIVE (NEGATIVE); RESPIRATORY SYNCYTIAL VIR NAA NEGATIVE (NEGATIVE)
[2024-07-26 18:37] LABS: BILIRUBIN, URINE NEGATIVE (negative); BLOOD/HGB, URINE NEGATIVE (Negative); KETONE, URINE TRACE (Negative); LEUK ESTERASE, URINE SMALL (negative); NITRITE, URINE POSITIVE (negative); PH, URINE 5.5 (5-7)
[2024-07-26 18:44] LABS: BACTERIA, URINE 3+ /hpf (negative); CASTS, URINE NONE SEEN \\lpf; COLLECTION TYPE, URINE CLEAN CATCH; CRYSTALS, URINE NONE SEEN (0-1+); EPITHELIAL CELLS, URINE SQUAMOUS 1+ /lpf (0-1+); RED BLOOD CELLS, URINE 0-1 /hpf (0-5); REFLEX CULTURE, URINE Yes (No); WHITE BLOOD CELLS, URINE 21-40 /HPF (0-5)
[2024-07-26] MEDS ORDERED: CEFTRIAXONE/SODIUM CHLORIDE 2 GM/100 ML PIGGYBACK IV ONE (19:00)
[2024-07-26] MEDS ORDERED: CEFDINIR300 MG PO (19:11)
[2024-07-26] MEDS ORDERED: PERCOCET 5-3251 EACH PO (19:11)
[2024-07-26] MEDS ORDERED: OXYCODONE/APAP 5/325 TAB PO ONE (19:15)
[2024-07-26 20:05] VITALS: BP 145/77
== END 2024-07-26 20:05 | disposition home or self-care (01) ==
LOC: ED 16:32
PROVIDERS: Emergency Medicine
DX: R10.9 Unspecified abdominal pain (principal); N39.0 Urinary tract infection, site not specified; E66.9 Obesity, unspecified; E11.9 Type 2 diabetes mellitus without complications; Z88.0 Allergy status to penicillin; Z88.8 Allergy status to other drugs, medicaments and biological substances; Z79.899 Other long term (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; Z79.84 Long term (current) use of oral hypoglycemic drugs; Z79.4 Long term (current) use of insulin
CPT/HCPCS: 36415; 74176; 80053; 81001; 83690; 84703; 85025; 87077; 87088; 87186; 87502; 96374; 96375; 99284-25; J0696; J1171; J2765; J7030; U0002

== ENCOUNTER 2024-09-01 12:04 | Inpatient (IN) | payer OTHER ==
[~2024-09-01] VITALS: Ht 147.3 cm; Wt 154.9 kg
[~2024-09-01 12:04] MED LIST changes: +CEFDINIR300 MG PO
[2024-09-01 12:26] LABS: BASOPHILS 0.7 % (0-2); EOSINOPHILS 1.9 % (0-6); HEMATOCRIT 30.7 % (35.0-50.0); HEMOGLOBIN 9.5 g/dL (12.0-18.0); LYMPHOCYTES 23.2 % (24-44); MCH 27.8 (27-36); MCHC 30.8 g/dl (30-36); MCV 90.4 fl (81-99); NEUTROPHILS 65.2 % (39-80); PLATELET COUNT 282 K/uL (140-440); RDW 23.1 (10.5-15.0)
[2024-09-01 12:37] LABS: ALBUMIN 2.6 g/dL (3.4-5.0); ALBUMIN/GLOBULIN RATIO 0.62 (1.1-2.4); ANION GAP 17.9 (7-21); BILIRUBIN, TOTAL 0.4 ng/dL (0.2-1.0); BUN/CREATININE RATIO 17.14 (6.0-28.6); CALCIUM 8.9 mg/dL (8.5-10.1); CREATININE, SERUM 0.7 mg/dL (0.55-1.02); POTASSIUM 3.9 mmol/L (3.5-5.1); PROTEIN, TOTAL 6.8 g/dL (6.4-8.2)
[2024-09-01 12:43] LABS: LACTIC ACID, BLOOD 2.9 mmol/L (0.4-2.0)
[2024-09-01] MEDS ORDERED: SODIUM CHLORIDE 0.9% 1,000 ML IV PRN ×2 (12:45→14:00)
[2024-09-01] MEDS ORDERED: VANCOMYCIN HCL 2,500 MG in DEXTROSE 5% 500 ML IV ONE (13:15)
--- NOTE | 2024-09-01 13:38 | EKG ---
[facility] [place] [facility] [address] [facility] [place] [address] Signed Sinus tachycardia Rightward axis Low voltage QRS Septal infarct , age undetermined Abnormal ECG When compared with ECG of 23-JUN-2024 17:04, Septal infarct is now present Confirmed by Fabiana Tyler MD ([id number]) on 09/01/2024 1:38:43 PM Electronically Signed By: FABIANA TYLER MD 09/01/24 1338 PATIENT NAME: DYLAN ROMERO Electrocardiogram DATE OF : 79 PHYSICIAN: FABIANA TYLER MD REPORT #: [id number] REPORT IS CONFIDENTIAL AND NOT TO BE RELEASED WITHOUT AUTHORIZATION
[2024-09-01 13:42] LABS: BILIRUBIN, URINE NEGATIVE (negative); BLOOD/HGB, URINE NEGATIVE (Negative); KETONE, URINE TRACE (Negative); LEUK ESTERASE, URINE TRACE (negative); NITRITE, URINE POSITIVE (negative); PH, URINE 5.5 (5-7)
[2024-09-01 13:59] LABS: BACTERIA, URINE RARE /hpf (negative); CASTS, URINE NONE SEEN \\lpf; COLLECTION TYPE, URINE CLEAN CATCH; CRYSTALS, URINE NONE SEEN (0-1+); EPITHELIAL CELLS, URINE SQUAMOUS 2+ /lpf (0-1+); RED BLOOD CELLS, URINE 0-1 /hpf (0-5); REFLEX CULTURE, URINE No (No)
[2024-09-01 14:53] LABS: LACTIC ACID, BLOOD 1.5 mmol/L (0.4-2.0)
[2024-09-01] MEDS ORDERED: METOCLOPRAMIDE HCL 10 MG/2 ML SDV IV PRN (15:15)
[2024-09-01] MEDS ORDERED: MORPHINE SULFATE 4 MG/ML VIAL IV ONE (15:15)
[2024-09-01] MEDS ORDERED: DEXTROSE 50% 50 ML SYR IV PRN ×2 (16:00)
[2024-09-01] MEDS ORDERED: ondansetron HCL 4 MG/2 ML VIAL IV PRN (16:00)
[2024-09-01] MEDS ORDERED: ACETAMINOPHEN 325 MG TAB PO PRN (16:00)
[2024-09-01] MEDS ORDERED: SODIUM CHLORIDE 0.9% 1,000 ML IV SCH (16:00)
[2024-09-01] MEDS ORDERED: DEXTROSE 5% 1,000 ML IV PRN (16:00)
[2024-09-01] MEDS ORDERED: GLUCAGON,HUMAN RECOMBINANT 1 MG/ML VIAL SUB-Q PRN (16:00)
[2024-09-01] MEDS ORDERED: IBLOOD GLUCOSE TEST STRIP 1 EA TEST XX PRN (16:00)
--- NOTE | 2024-09-01 16:57 | NUR ---
REPORT RECEIVED FROM ED RN. PATIENT TRANSFERED TO UNIT BED FROM ED BED WITH 1 PA ASSIST AND FWW. VSS, NOTED PATIENT TO BE TACHYCARDIC 120'S PATIENT STATED THAT IS NORMAL FOR ME. REPORT FROM ED NOTED THAT PATIENT IS TACHYCARDIC ENTIRE TIME SHE HAS BEEN IN ED. HEART SOUNDS REGULAR. NOTED ABCESS/REDNESS TO RUQ. AREA IS RED HOT TO THE TOUCH. LUNGS DIM THROUGHOUT. PATIENT ON 2L O2 VIA NC. PATIENT ORIENTED TO CALL LIGHT AND ROOM. CALL LIGHT WITHIN REACH.
[2024-09-01 16:58] VITALS: BP 127/71
[2024-09-01] MEDS ORDERED: IBLOOD GLUCOSE TEST STRIP 1 EA TEST VI SCH (17:00)
[2024-09-01] MEDS ORDERED: INSULIN LISPRO 100 UNIT/ML ML SUB-Q SCH (17:00)
--- NOTE | 2024-09-01 17:30 | NUR ---
PATIENT BLOOD SUGAR OBTAINED. NO SS INSULIN AT THIS TIME. CALL TO MD REQUESTING INCREASE IN PAIN MEDICATIONS. MD TO ENTER NEW ORDERS.
[2024-09-01] MEDS ORDERED: OXYCODONE/APAP 10/325 TAB PO PRN (17:45)
[2024-09-01] MEDS ORDERED: FLU VACC TS2024-25(6MOS UP)/PF 1 EACH SYR IM ONE (18:00)
--- NOTE | 2024-09-01 18:10 | NUR ---
PRN ADMINSTERED FOR C/O PAIN 05/05 TO RUQ. SECOND RN SKIN CHECK COMPLETED. NOTED YEASTY LIKE REDNESS TO PAITENT LEFT PANNUS, BILATERAL AXILLARY AND LEFT BREAST. PATIENT WITH NO FURTHER NEEDS AT THIS TIME CALL LIGHT WITHIN REACH.
--- NOTE | 2024-09-01 19:57 | NUR ---
REPORT RECEIVED FROM HERMINIO IGLESIAS. pt RESTING IN THE BED. SKIN CHECK DONE. 4X4 GAUZE PLACED ON pt WOUND. pt DENIES ANY OTHER NEEDS AT THIS TIME. CALL LIGHT WITHIN REACH.
[2024-09-01 20:40] VITALS: BP 135/69
--- NOTE | 2024-09-01 20:41 | NUR ---
CALL LIGHT ANSWERED, pt UP SBA WITH FWW TO BSC TO VOID. pt HAD VERY LARGE SOFT BM AND UNMEASURED VOID, ASSISTANCE PROVIDED WITH CRISTINA CARE. pt BACK TO BED. SILK SCREEN LAYOUT DRAFTER IN ROOM TO COLLECT VS AND I&O'S, RT ALSO IN ROOM SETTING pt UP WITH CPOX. CALL LIGHT IN REACH, PHONE PLUGGED INTO BLOOD BANK LABORATORY PROFESSIONAL.
--- NOTE | 2024-09-01 20:42 | NUR ---
FOREST FIRE EQUIPMENT OPERATOR OBTAINED VITALS AND I&O. PT ICE WATER REFILLED. PT STATES NO FURTHER NEEDS AT THIS TIME. CALL LIGHT WITHIN REACH.
[2024-09-01] MEDS ORDERED: MELATONIN 3 MG TAB PO PRN (21:00)
--- NOTE | 2024-09-01 21:10 | NUR ---
ASSESSMENT AND VITAL SIGNS DONE. SCHEDULED MEDS ADMINISTERED. BG CHECKED. WITH A RESULT OF 132. NO SS INSULIN NEEDED. SNACK PROVIDED. PICTURE TAKEN OF ABCESS OF WOUND ON HER ABD. pt ASKED ABOUT HOME MED TO BE RESTARTED. THIS RN DICUSSED PLAN ABOUT CALLING THE DOCTOR. pt DENIES ANY OTHER NEEDS AT THIS TIME CALL LIGHT WITHIN REACH.
[2024-09-01] MEDS ORDERED: ENOXAPARIN SODIUM 150 MG/ML SUB-Q SCH (21:26)
[2024-09-01] MEDS ORDERED: CEFEPIME HCL/D5W 2 GM/100 ML PIGGYBACK IV SCH (21:27)
[2024-09-01] MEDS ORDERED: DULOXETINE HCL 20 MG CAP PO SCH (21:53)
[2024-09-01] MEDS ORDERED: PRAMIPEXOLE DIHYDROCHLORIDE 0.25 MG TAB PO SCH (21:55)
[2024-09-01] MEDS ORDERED: TIZANIDINE HCL 4 MG TABLET PO PRN (22:00)
--- NOTE | 2024-09-01 22:40 | NUR ---
CALLED MD FOR pt HOME MEDS TO BE RESTARTED. MD PLACED NEW ORDERS. NO OTHER NEEDS AT THIS TIME.
--- NOTE | 2024-09-01 22:50 | NUR ---
MEDS ADMINISTERED PER ORDER. WATER REFRESHED. PICTURES TAKEN. CONSENT SIGNED. pt DENIES ANY OTHER NEEDS AT THIS TIME. CALL LIGHT WITHIN REACH.
--- NOTE | 2024-09-01 23:05 | NUR ---
Elzbieta wears 2L O2 at night at home. She does not tolerate a CPAP/BIPAP. CPOX placed to monitor saturations at night or when asleep.
--- NOTE | 2024-09-01 23:21 | NUR ---
CALL LIGHT ANSWERED. PT NEEDED TO USE BATHROOM. AQUATIC DIRECTOR SBA TO BSC. PT VOIDED AND ASSISTED BACK TO BED. PT REQUESTING MELATONIN. PRIMARY RN NOTIFED. PT STATES NO FURTHER NEEDS AT THIS TIME. CALL LIGHT WITHIN REACH.
--- NOTE | 2024-09-01 23:40 | NUR ---
pt C/O 03/05 PAIN. PRN PAIN MEDS ADMINISTERED. pt DENIES ANY OTHER NEEDS AT THIS TIME. CALL LIGHT WITHIN REACH.
[2024-09-02] VITALS (8 sets, daily range): BP systolic 94–116; BP diastolic 54–67
--- NOTE | 2024-09-02 01:48 | NUR ---
METAL MOVER OBTAINED VITALS AND I&O. PT STATES NO NEEDS AT THIS TIME. CALL LIGHT WITHIN REACH.
--- NOTE | 2024-09-02 03:18 | NUR ---
pt CALLED FOR IV PUMP BEEPING. IV ABX FINISHED INFUSING. pt SL PER ORDER. pt UP TO THE BSC 1PA WITH FWW. pt C/O 02/02 PAIN. PRN PAIN MEDS ADMINISTERED. pt DENIES ANY OTHER NEEDS AT THIS TIME. WATER REFRESHED. CALL LIGHT WITHIN REACH.
--- NOTE | 2024-09-02 05:24 | NUR ---
CALL LIGHT ANSWERED. PT NEEDED TO USE BATHROOM. RESERVOIR ENGINEERING CONSULTANT SBA TO BSC. PT VOIDED AND ASSISTED BACK TO BED. PT STATES NO FURTHER NEEDS AT THIS TIME. CALL LIGHT WITHIN REACH.
--- NOTE | 2024-09-02 05:30 | NUR ---
UNDERGRADUATE INTERNSHIP OBTAINED VITALS AND I&O. PT STATES NO NEEDS AT THIS TIME. CALL LIGHT WITHIN REACH.
[2024-09-02 05:53] LABS: BASOPHILS 1.3 % (0-2); EOSINOPHILS 2.9 % (0-6); HEMATOCRIT 29.8 % (35.0-50.0); HEMOGLOBIN 8.9 g/dL (12.0-18.0); LYMPHOCYTES 28.2 % (24-44); MCH 27.5 (27-36); MCHC 29.7 g/dl (30-36); MCV 92.6 fl (81-99); MONOCYTES 11.7 % (0-12); NEUTROPHILS 55.9 % (39-80); PLATELET COUNT 293 K/uL (140-440); RBC 3.21 M/ul (4.3-5.7); RDW 23.1 (10.5-15.0)
[2024-09-02 06:09] LABS: SMEAR REVIEW BLOOD SEE COMMENTS
[2024-09-02 06:15] LABS: ALBUMIN 2.5 g/dL (3.4-5.0); ALBUMIN/GLOBULIN RATIO 0.58 (1.1-2.4); ANION GAP 14.6 (7-21); BILIRUBIN, TOTAL 0.5 ng/dL (0.2-1.0); BUN/CREATININE RATIO 13.11 (6.0-28.6); CALCIUM 8.8 mg/dL (8.5-10.1); CREATININE, SERUM 0.61 mg/dL (0.55-1.02); MAGNESIUM 1.7 mg/dL (1.8-2.4); PHOSPHORUS, INORGANIC 2.7 mg/dL (2.5-4.9); POTASSIUM 3.6 mmol/L (3.5-5.1); PROTEIN, TOTAL 6.8 g/dL (6.4-8.2)
--- NOTE | 2024-09-02 07:30 | NUR ---
REPORT RECEIVED FROM RADIOGRAPHER CARDIAC CATHETERIZATION RN. PATIENT RESTING IN BED. OXYGEN IN PLACE ON 2 L VIA NC. DENIES ANY NEEDS AT THIS TIME. CALL LIGHT WITHIN REACH.
--- NOTE | 2024-09-02 08:19 | NUR ---
UR CLINICAL REVIEW: MARLEN, MEETS INPT FOR CELLULITIS EOCCO INPT 09/01/24 @ 155 ORDER MATCHES REG WILL SEND CLINICALS FOR AUTH. PLAN TO DC TO HOME WHEN MEDICALLY STABLE 09/04/2024
--- NOTE | 2024-09-02 08:21 | NUR ---
PATIENT RESTING IN BED. LUNGS CLEAR IN THE UPPERS AND DIM IN THE LOWER LOBES. TELE IN PLACE. NORMAL SINUS RYTHYM AT THIS TIME, NOTED TACHY HR DENEIS ANY PAIN MEDS AT THIS TIME. BOWEL TONES X 4 QUADRANTS. GENERALIZED EDEMA IN BLLE NOTED. POSITIVE CMS TO BLLE. REDNESS REMAINS UNDER LEFT BREAST, LEFT ARM PIT, AND LEFT PANNUS. ABCESS AREA TO RUQ COVERED AT THIS TIME, NOTED SCANT AMOUNT OF DRAINAGE. AREA REMAINS UNCHANGED FROM PREVIOUS SHIFT. PATIENT EATING BREAKFAST AT THIS TIME. AM MEDICATIONS ADMINSTERED. NO FURTHER NEEDS CALL LIGHT WITHIN REACH.
[2024-09-02] MEDS ORDERED: PARoxetine HCL 20 MG TAB PO SCH (09:00)
[2024-09-02] MEDS ORDERED: MAGNESIUM CHLORIDE 64 MG TABCR PO ONE (09:00)
[2024-09-02] MEDS ORDERED: GABAPENTIN 300 MG CAP PO SCH (09:00)
[2024-09-02] MEDS ORDERED: DAPTOmycin 500 MG/10 ML VIAL IV SCH (09:00)
[2024-09-02] MEDS ORDERED: diazePAM 2 MG TAB PO SCH (09:00)
[2024-09-02] MEDS ORDERED: atenoloL 100 MG TAB PO SCH (09:00)
[2024-09-02] MEDS ORDERED: CEFEPIME HCL/D5W 1 GM/100 ML PIGGYBACK IV SCH (09:00)
--- NOTE | 2024-09-02 09:13 | NUR ---
PT IN ROOM WITH PATIENT AT THIS TIME. PATIENT SITTING ON SIDE OF BED DOING EXERCISES. IV ABX ADMINSTERED.
--- NOTE | 2024-09-02 09:40 | NUR ---
PATIENT ASSISTED TO BATHROOM WITH FWW AND 1 PA ASSIST.
--- NOTE | 2024-09-02 10:59 | NUR ---
INTO SEE PATIENT. PERSONAL INFORMATION REVIEWED. PATIENT LIVES IN AN APARTMENT AT HER MOTHERS HOUSE. PATIENT USES WALKER AT BASELINE. WHEELCHAIR ON OCCASION. PATIENT USES OXYGEN AT HOME USES [place]ARE. SHE DENIES ANY DIFFCULTY GETTING INTO THE HOUSE OR GETTING OUT OF BED. SISTER MAXIMILIANO IS HER CAREGIVER AND WILL BE THE ONE TO PICK HER UP AT DISCHARGE. PATIENT DENIES DIFFCULTY PAYING UTILITIES OR OBTAINING FOOD. DENIES ANY CM NEEDS AT THIS TIME.
--- NOTE | 2024-09-02 11:00 | NUR ---
COVID AND RSV SWAB COMPLETED. PATIENT RESTING IN BED. IV SITE REMAINS WNL WITH IV ABX INFUSING. PATIENT DENIES ANY NEEDS AT THIS TIME. CALL LIGHT WITHIN REACH.
--- NOTE | 2024-09-02 11:24 | NUR ---
MED REC COMPLETE
--- NOTE | 2024-09-02 11:25 | NUR ---
VISITED DURING SPIRITUAL CARE ROUNDS. PT STATED TIRED, ANXIOUS, WORRIED, INDICATED [place] A SOURCE OF STRENGTH, BUT NO INVOLVEMENT WITH [employer] COMMUNITY, INDICAATED FAMILY PRIMARY SUPPORT. INVESTIGATION MANAGER PROVIDED SUPPORTIVE PRESENCE, HOSPITALITY, PRAYER. PT EXPRESSED GRATITUDE, HOPE.
[2024-09-02 11:50] LABS: INFLUENZA B NAA NEGATIVE (NEGATIVE); RESPIRATORY SYNCYTIAL VIR NAA NEGATIVE (NEGATIVE)
--- NOTE | 2024-09-02 11:52 | NUR ---
CALL LIGHT ANSWERED. C/O PAIN PRN ADMINSTERED. PATIENT REPOSITIONED IN BED AT THIS TIME. NO FURTHER NEEDS. CALL LIGHT WITHIN REACH.
[2024-09-02] MEDS ORDERED: PHARMACY RENAL DOSE ADJUSTMENT 1 DOSE MISC PO SCH (12:00)
--- NOTE | 2024-09-02 12:18 | NUR ---
PATIENT RESTING IN BED, EATING LUNCH. SS INSULIN ADMINSTERED. IV SITE REMAINS WNL. PATIENT WITH NO FURTHER NEEDS. CALL LIGHT WITHIN REACH.
[2024-09-02] MEDS ORDERED: MICONAZOLE NITRATE 1 EA BTL TOP SCH (12:55)
--- NOTE | 2024-09-02 14:02 | CONS ---
[facility] [address] [place], [place] [address] Signed DATE OF CONSULTATION: 09/02/2024 CHIEF COMPLAINT: Right abdominal wall abscess. HISTORY OF PRESENT ILLNESS: Dylan is a 49-year-old obese female, who I have known for many years. Close to 18 years ago, I did her open appendectomy. Of course with her weight, she developed an incisional hernia. She finally had a gastric bypass. She is down about 100 pounds. She is about 341 pounds at this time. Still her body mass index is 71. She has been working with Dr. Jones Woo at [facility], hoping to have that repaired. She has had trouble with multiple pulmonary emboli. She was on Eliquis and had continued pulmonary emboli. There was some concern whether or not she was noncompliant. She is now using Lovenox shots twice a day. As expected, she had a hematoma that had to be incised and drained, and now she has an infected area on the right mid quadrant of her abdomen. I have been asked to see her as a local general surgeon to drain that. She has been put on the medical service with vancomycin and cefepime. She is on a diet, had her breakfast this morning. PAST MEDICAL HISTORY: Obesity, bipolar, pulmonary emboli, diabetes, methicillin-resistant Staph aureus, and right lower quadrant abdominal hernia after open appendectomy. PAST SURGICAL HISTORY: Includes gastric bypass, cholecystectomy, open appendectomy, tonsillectomy, sinus surgery, and incision and drainage of abdominal wall hematoma. SOCIAL HISTORY: She does not smoke or drink. She is a full code. Dr. Jones Davison is her primary care provider. I know her mom is here in town along with some of her grandchildren. FAMILY HISTORY: Not reviewed. REVIEW OF SYSTEMS: She had 10 systems reviewed and there was really nothing new since I have seen her last. ALLERGIES: She has been told not to take NSAIDs because of the gastric bypass. She is allergic to penicillin, amoxicillin, and diphenhydramine. She is also allergic to apparently bromocriptine as well and possibly Zofran. MEDICATIONS: Electronically Signed By: JOSE WEBBER MD 09/02/24 1402 PATIENT NAME: DYLAN ROMERO CONSULTATION DATE OF : 79 REPORT #: [id number] PHYSICIAN: JOSE WEBBER MD PCP: JONES DAVISON MD REPORT IS CONFIDENTIAL AND NOT TO BE RELEASED WITHOUT AUTHORIZATION [facility] [address] [place], [place] [address] Signed Atenolol, tizanidine, pramipexole, paroxetine, duloxetine, metformin, insulin, diazepam, lurasidone, chlorpromazine, Lovenox, and nystatin. PHYSICAL EXAMINATION: VITAL SIGNS: Her blood pressure 116/59, her heart rate 122, respiratory rate 18, and temperature 97.7. She is 4 feet 10 inches tall, 155 kg with a body mass index of 71. GENERAL: Dylan is lying supine in her hospital bed, semi-recumbent. The nurse is in the room. She is in no acute distress. LUNGS: Clear to auscultation bilaterally. HEART: Tachycardic. ABDOMEN: Quite obese. She is able to show me this 5 cm abscessed area on her right abdominal wall. LABORATORY DATA: Her white blood count 7.9, hemoglobin 8.9, neutrophils 55, and platelets 293. Creatinine 0.6, albumin is 2.5. Her lactic acid on admission was 2.5. Beta-hCG is negative. Urine culture is pending. Blood cultures are pending. RADIOGRAPHIC STUDIES: Her CT scan of abdomen and pelvis showed the severe abdominal wall diastasis and also the right lower quadrant ventral hernia containing large and small bowel and then her liver and spleen are enlarged, and she has some areas on the abdominal wall, where you can see she has been injecting the Lovenox. ASSESSMENT AND PLAN: Dylan is a 49-year-old obese female, who has a small abscess on her right abdominal wall from injecting Lovenox. She has already had breakfast this morning. We will let her stay on the vancomycin and cefepime today. We will make her n.p.o. after midnight and plan on incising and draining this area in the OR tomorrow morning. We will probably have to leave it open and packed that until it heals in secondarily. She might reconsider being more compliant with Eliquis and this would obviate these hematomas and abdominal abscesses. I have reviewed this with Dylan. She has expressed understanding and agrees with the above plan. Jose Webber MD ALB/MODL /[id number] Electronically Signed By: JOSE WEBBER MD 09/02/24 1402 PATIENT NAME: DYLAN ROMERO CONSULTATION DATE OF : 79 REPORT #: [id number] PHYSICIAN: JOSE WEBBER MD PCP: JONES DAVISON MD REPORT IS CONFIDENTIAL AND NOT TO BE RELEASED WITHOUT AUTHORIZATION [facility] [address] [place], [place] [address] Signed cc: Jones Davison MD Patient Chart Jose Webber MD Copies: JONES DAVISON DMD, ANDREW L MD ~ Electronically Signed By: JOSE WEBBER MD 09/02/24 1402 PATIENT NAME: DYLAN ROMERO CONSULTATION DATE OF : 79 REPORT #: [id number] PHYSICIAN: JOSE WEBBER MD PCP: JONES DAVISON MD REPORT IS CONFIDENTIAL AND NOT TO BE RELEASED WITHOUT AUTHORIZATION
--- NOTE | 2024-09-02 14:33 | NUR ---
CRISTINA CARE AND POWDER APPLIED TO FOLDS. PATIENT TOLLERATED WELL. IV ABX STARTED IV SITE REMAINS WNL. ABCESS TO RUQ REMAINS UNCHANGED. NO NOTED DRAINAGE AT THIS TIME. PATIENT DENIES ANY FURTHER NEEDS CALL LIGHT WITHIN REACH.
--- NOTE | 2024-09-02 16:18 | NUR ---
CALL LIGHT ANSWERED. PATIENT REQUESTING PRN. PRN ADMINSTERED SEE SEP. IV SITE REMIANS WNL. NO FURTHER NEEDS CALL LIGHT WITHIN REACH.
--- NOTE | 2024-09-02 17:34 | NUR ---
SS INSULIN GIVEN. PATIENT RESTING IN BED, WATHCING TV. DINNER AT BEDSIDE. DENIES ANY NEEDS CALL LIGHT WITHIN REACH.
--- NOTE | 2024-09-02 18:27 | NUR ---
PATIENT ASSISTED BACK TO BED FROM BATHROOM WITH ASSISTANCE OF FAMILY DEVELOPMENT SPECIALIST STAFF.
--- NOTE | 2024-09-02 19:10 | NUR ---
pt RESTING IN THE BED. BOARD UPDATED. pt DENIES ANY OTHER NEEDS AT THIS TIME. CALL LIGHT WITHIN REACH.
--- NOTE | 2024-09-02 21:00 | NUR ---
ASSESSMENT AND VITAL SIGNS DONE. DRESSING CDI. SNACK PROVIDED. BG CHECKED WITH A RESULTS OF 148. SS INSULIN ADMINISTERED. pt DENIES ANY OTHER NEEDS AT THIS TIME. CALL LIGHT WITHIN REACH. pt SL. IV ASSESSED., WNL
--- NOTE | 2024-09-02 23:50 | NUR ---
pt CALLED TO USE THE BSC. pt BACK TO THE BED. COLD CLOTH PROVIDED. pt DENIES ANY OTHER NEEDS AT THIS TIME. CALL LIGHT WITHIN REACH.
[2024-09-03] VITALS (10 sets, daily range): BP systolic 103–141; BP diastolic 54–64
[2024-09-03] MEDS ORDERED: LACTATED RINGER'S 1,000 ML IV SCH
--- NOTE | 2024-09-03 01:46 | NUR ---
pt RESTING IN THE BED WITH EYE CLOSED. RR EVEN END UNLABORED. CALL LIGHT WITHIN REACH. IV ABX INFUSING PER ORDER.
--- NOTE | 2024-09-03 03:39 | NUR ---
pt RESTING IN THE BED WITH EYES CLOSED. RR EVEN AND UNLABORED. CALL LIGHT WITHIN REACH.
--- NOTE | 2024-09-03 05:39 | NUR ---
pt UP TO THE BR. WIPE DOWN DONE. VITAL SIGNS AND ASSESSMENT DONE. PRN PAIN MEDS ADMINISTERED FOR PAIN OF 7/10. pt DENIES ANY OTHER NEEDS AT THIS TIME. CALL LIGHT WITHIN REACH.
[2024-09-03 05:58] LABS: HEMOGLOBIN 9.7 g/dL (12.0-18.0)
[2024-09-03 06:01] LABS: BASOPHILS 0.5 % (0-2); EOSINOPHILS 3.1 % (0-6); HEMATOCRIT 32.5 % (35.0-50.0); LYMPHOCYTES 28.3 % (24-44); MCH 27.4 (27-36); MCHC 29.9 g/dl (30-36); MCV 91.6 fl (81-99); MONOCYTES 10.4 % (0-12); NEUTROPHILS 57.7 % (39-80); PLATELET COUNT 303 K/uL (140-440); RBC 3.55 M/ul (4.3-5.7); RDW 23.2 (10.5-15.0)
[2024-09-03 06:16] LABS: ALBUMIN 2.5 g/dL (3.4-5.0); ALBUMIN/GLOBULIN RATIO 0.53 (1.1-2.4); ANION GAP 11.9 (7-21); BILIRUBIN, TOTAL 0.4 ng/dL (0.2-1.0); BUN/CREATININE RATIO 15.38 (6.0-28.6); CALCIUM 9.2 mg/dL (8.5-10.1); CREATININE, SERUM 0.65 mg/dL (0.55-1.02); POTASSIUM 3.9 mmol/L (3.5-5.1); PROTEIN, TOTAL 7.2 g/dL (6.4-8.2)
--- NOTE | 2024-09-03 07:45 | NUR ---
PATIENT RESTING IN BED, SHE REPORTS SHE IS FEELING NERVOUS ABOUT HER PROCEDURE. ASSESSMENT COMPLETE.
[2024-09-03] MEDS ORDERED: SODIUM HYPOCHLORITE 0.5% 480 ML BTL ONE (08:03)
[2024-09-03] MEDS ORDERED: propofoL 200 MG/20 ML VIAL ONE (08:24)
[2024-09-03] MEDS ORDERED: LIDOCAINE HCL 2% 5 ML SDV ONE (08:24)
[2024-09-03] MEDS ORDERED: MIDAZOLAM HCL 2 MG/2 ML VIAL ONE (08:24)
[2024-09-03] MEDS ORDERED: fentaNYL citrate 100 MCG/2 ML VIAL ONE (08:24)
--- NOTE | 2024-09-03 08:35 | NUR ---
PATIENT OFF THE UNIT FOR PROCEDURE.
--- NOTE | 2024-09-03 08:53 | NUR ---
IN PATIENT ROOM TO COMPLETE PRE PROCEDURE CHECK LIST, THEN TALKED WITH SANTIAGO KUMAR CRNA AT NURSES STATION UPDATED ON AM BLOOD SUGAR CHECK. ALSO GAVE OK TO HOLD ALL PO MEDICATIONS THIS AM UNTIL AFTER PROCEDURE. TONGUE JEWERLY OUT, SANTIAGO MADE AWARE OF OTHER TWO STUDS.
[2024-09-03] MEDS ORDERED: SODIUM CHLORIDE 0.9% 20 ML IV ONE (09:02)
[2024-09-03] MEDS ORDERED: MUPIROCIN 22 GM TUBE ONE (09:06)
[2024-09-03] MEDS ORDERED: fentaNYL citrate 50 MCG/ML SDV ONE (09:15)
[2024-09-03] MEDS ORDERED: HYDROmorphone HCL 1 MG/ML SYR ONE ×2 (09:22→09:50)
[2024-09-03] MEDS ORDERED: ACETAMINOPHEN 1,000 MG/100 ML VIAL ONE (09:30)
[2024-09-03] MEDS ORDERED: HYDROmorphone HCL 1 MG/ML SYR IV PRN ×2 (09:45→13:15)
[2024-09-03] MEDS ORDERED: NALOXONE HCL 0.4 MG SYR IV PRN (09:45)
[2024-09-03] MEDS ORDERED: IBLOOD GLUCOSE TEST STRIP 1 EA TEST VI PRN (09:45)
[2024-09-03] MEDS ORDERED: droPERidol 5 MG/2 ML VIAL IV PRN (09:45)
[2024-09-03] MEDS ORDERED: MIDAZOLAM HCL 2 MG/2 ML VIAL IV PRN (09:45)
--- NOTE | 2024-09-03 09:47 | NUR ---
09/03/24 0947 Harris,Jocelynn 0950 PT ARRIVED TO PACU ON 6L VIA MASK, PT REACTIVE TO TACTILE STIMULI VSS. PT STARTS TO REPORT PAIN AND MOANING AND GRIMACING.
--- NOTE | 2024-09-03 10:16 | NUR ---
PATIENT BACK FROM SURGERY REPORT IN ROOM 114 FROM [place] REFINERY OPERATOR LIGHT ENDS RECOVERY
--- NOTE | 2024-09-03 11:07 | NUR ---
PATIENT ATE PUUDING, NO NAUSEA, SHE REPORTS, "I AM STARVING." FOOD TRAY ORDERED. AM MEDICATIONS PASSED.
--- NOTE | 2024-09-03 11:31 | NUR ---
PATIENT RESTING IN BED, TALKING ON HER CELL PHONE. SHE IS IN RELAXED, NON TENSE POSITION. SHE REPORTS HER FOOD TRAY WAS EXCELLENT. NO COMPLAINTS AT THIS TIME.
--- NOTE | 2024-09-03 12:40 | NUR ---
PT RESTING, EYES OPENED WHEN ARRIVED TO ROOM. IV FLUIDS INFUSING ORDERED, CLEARED PUMP. PT DRESSING IS MOIST, ADDITIONAL ABD IN PLACE FOR COMFORT OVER THE SITE TO KEEP MOISTURE CONTAINED. PT REQUESTING TO USE THE [facility] ARRIVED TO ASSIST WITH CARES. PT BLOOD SUGAR IS 249, INSULIN GIVEN FOR COVERAGE. PT C/O MILD PAIN TO THE SURGICAL SITE. WILL ADDRESS PAIN AFTER GETTING UP TO BEDSIDE COMMODE/BACK TO BED PER PATIENT REQUEST. ALL PT CARE NEEDS BEING TAKEN CARE OF AT THIS TIME.
--- NOTE | 2024-09-03 16:19 | NUR ---
pt requested pain med, and tizanadine given for discomfort - pt just amb to br, and back to bed. oxygen 2l nc chronic on. 97% and hr 87 at rest with call light in reach. iv fluid lr at 100.
--- NOTE | 2024-09-03 17:31 | NUR ---
pt amb to chair for meal - abd drsg cdi. pt had increased pain - see emar.
[2024-09-03] MEDS ORDERED: SODIUM HYPOCHLORITE 0.5% 480 ML BTL TOP SCH (21:00)
[2024-09-03] MEDS ORDERED: MUPIROCIN 22 GM TUBE TOP SCH (21:00)
[2024-09-03] MEDS ORDERED: chlorproMAZINE HCL 25 MG TAB PO SCH (21:00)
--- NOTE | 2024-09-03 23:30 | NUR ---
PT IN BED, EYES CLOSED, RESP EVEN, CALL LIGHT IN REACH.
[2024-09-04] VITALS (8 sets, daily range): BP systolic 110–132; BP diastolic 55–67
--- NOTE | 2024-09-04 01:57 | NUR ---
pt medicated for pain in ruq per request. 04/05 pain at surgical site after pt amb to br. Iv infilterated and removed. iv moved to left saline lock. call light in reach.
--- NOTE | 2024-09-04 03:19 | NUR ---
RECEIVED REPORT FROM ALICIA IGLESIAS. PATIENT IS RESTING IN BED WITH EYES CLOSED, RR 16. CALL LIGHT IN REACH.
[2024-09-04 05:55] LABS: BASOPHILS 0.7 % (0-2); HEMATOCRIT 28.3 % (35.0-50.0); HEMOGLOBIN 8.7 g/dL (12.0-18.0); LYMPHOCYTES 37.5 % (24-44); MCH 27.8 (27-36); MCHC 30.7 g/dl (30-36); MCV 90.7 fl (81-99); MONOCYTES 10.4 % (0-12); NEUTROPHILS 48.4 % (39-80); PLATELET COUNT 271 K/uL (140-440); RBC 3.13 M/ul (4.3-5.7); RDW 22.4 (10.5-15.0)
--- NOTE | 2024-09-04 05:57 | NUR ---
PATIENT ASSISTED TO THE BR A 1PA W/FWW. PATIENT ABLE TO VOID. PATIENT IS BACK IN BED RESTING. PATIENTS VITALS TAKEN AND RECORDED. INTAKE AND OUTPUT RECORDED. IV INFUSING PER ORDER. PATIENT RATES PAIN AT AN 8/10, PRN PAIN MEDICATION GIVEN PER ORDER. PATIENT DENIES ANY FURTHER NEEDS. CALL LIGHT IN REACH.
[2024-09-04 06:13] LABS: ALBUMIN 2.4 g/dL (3.4-5.0); ALBUMIN/GLOBULIN RATIO 0.56 (1.1-2.4); BILIRUBIN, TOTAL 0.4 ng/dL (0.2-1.0); BUN/CREATININE RATIO 17.24 (6.0-28.6); CALCIUM 9.1 mg/dL (8.5-10.1); CREATININE, SERUM 0.58 mg/dL (0.55-1.02); PROTEIN, TOTAL 6.7 g/dL (6.4-8.2)
--- NOTE | 2024-09-04 07:37 | NUR ---
RECEIVED REPORT FROM BIN RN Louise NEGRETE. PT SLEEPING IN BED AT THIS TIME, DID NOT AWAKEN WHEN I ARRIVED TO ROOM. IV FLUIDS INFUSING AT THIS TIME. CALL LIGHT WITHIN REACH, ALLOWED TO SLEEP.
--- NOTE | 2024-09-04 08:09 | NUR ---
PATIENT IN BED AT THIS TIME. BIOANALYST CHARTED BLOODSUAGR AND DID HOURLY ROUNDS. CALL LIGHT WITHIN REACH, NO FURTHER NEEDS AT THIS TIME.
[2024-09-04] MEDS ORDERED: ALBUTEROL SULFATE 0.083% 3 ML VIAL INH PRN (10:00)
--- NOTE | 2024-09-04 10:24 | NUR ---
PATIENT IN BED AT THIS TIME. BUILDING RENTAL MANAGER CHARTED VITALS AND I&O'S. CALL LIGHT WITHIN REACH, NO FURTHER NEEDS AT THIS TIME.
[2024-09-04] MEDS ORDERED: OXYCODONE/APAP 10/325 TAB PO PRN (13:00)
--- NOTE | 2024-09-04 13:13 | NUR ---
PT DRESSING TO RUQ ABDOMEN, PACKING REMOVED, CLEANSED WITH SALINE. PACKING WITH DAYKINS REINSERTED, OINTMENT APPLIED AND COVERED WITH ABD. PT C/O PAIN THROUGHOUT PROCEDURE, PRE-MEDICATED WITH DILUAID IV PRN - SEE SEP. PT ADVISED TO TRY AND SIT UP IN THE CHAIR FOR LUNCH AND FOR A COUPLE HOURS SINCE BEEN IN BED, LEFT ROOM AFTER DRESSING CHANGE AND WAS CALLED BACK WITHIN 5 MINUTES, PT INDICATES PAIN IS SO BAD SHE WANTS TO GET BACK TO BED. PT DOES NOT HAVE HOSPITAL BED AND DENIES BEING IN BED AT HOME SO OFTEN. CALL LIGHT WITHIN REACH.
--- NOTE | 2024-09-04 13:54 | NUR ---
PATIENT IN BED AT THIS TIME. SLOT MANAGER CHARTED VITALS AND I&O'S. PATIENT REQUESTED PAIN MEDICATION, RN NOTIFIED. CALL LIGHT WITHIN REACH, NO FURTHER NEEDS AT THIS TIME.
--- NOTE | 2024-09-04 15:03 | NUR ---
PT RESTING IN BED AT THIS TIME WATCHING TV. REQUESTING PAIN MEDS FOR 7/10 PAIN TO RUQ ABDOMEN/SURG SITE. PRN MEDS GIVEN - SEE MAR. IV FLUID/ABX INFUSING AT THIS TIME. PT DENIES ANY FURTHER NEEDS, CALL LIGHT WITHIN REACH.
[2024-09-04] MEDS ORDERED: APIXABAN 5 MG TAB PO SCH (21:00)
--- NOTE | 2024-09-04 23:04 | NUR ---
PT ASSISTED WITH FWW TO AMB TO BR TO VOID, BACK TO BED WITH CALL LIGHT IN REACH.
[2024-09-05] VITALS (7 sets, daily range): BP systolic 111–142; BP diastolic 57–72
--- NOTE | 2024-09-05 03:53 | NUR ---
RECEIVED REPORT FROM ALICIA IGLESIAS. PATIENT IS RESTING IN BED WITH EYES CLOSED, RR 17. CALL LIGHT IN REACH.
[2024-09-05 05:25] LABS: BASOPHILS 0.7 % (0-2); EOSINOPHILS 4.4 % (0-6); HEMATOCRIT 26.9 % (35.0-50.0); HEMOGLOBIN 8.2 g/dL (12.0-18.0); LYMPHOCYTES 32.3 % (24-44); MCH 27.6 (27-36); MCHC 30.4 g/dl (30-36); MCV 90.6 fl (81-99); MONOCYTES 13.1 % (0-12); NEUTROPHILS 49.5 % (39-80); PLATELET COUNT 227 K/uL (140-440); RBC 2.97 M/ul (4.3-5.7); RDW 22.2 (10.5-15.0)
[2024-09-05 05:42] LABS: ALBUMIN/GLOBULIN RATIO 0.51 (1.1-2.4); ANION GAP 7.2 (7-21); BILIRUBIN, TOTAL 0.3 ng/dL (0.2-1.0); CALCIUM 8.7 mg/dL (8.5-10.1); CREATININE, SERUM 0.5 mg/dL (0.55-1.02); POTASSIUM 4.2 mmol/L (3.5-5.1); PROTEIN, TOTAL 5.9 g/dL (6.4-8.2)
--- NOTE | 2024-09-05 06:16 | NUR ---
PATIENT IS RESTING IN BED. ASSEMSENT COMPLETED. PATIENT RATES PAIN AT A 7/10, PRN PAIN MEDICATION GIVEN PER ORDER. PATIENT DENIES ANY FURTHER NEEDS. DRESSING C/D/I. PATIENTS IV INFUSING PER ORDER. CALL LIGHT IN REACH.
--- NOTE | 2024-09-05 07:48 | NUR ---
RECEIVED REPORT FROM EVERETT VEGA. PT SLEEPING/SNORNING WHEN ROUNDS MADE, IV FLUIDS INFUSING. PT ALLOWED TO SLEEP, CALL LIGHT WITHIN REACH.
--- NOTE | 2024-09-05 08:00 | NUR ---
PT SLEEPING, AWAKENS WHEN ENTERED ROOM, DRIFTS BACK TO SLEEP QUICKLY. CPOX IN PLACE O2 92% ON 2L NC. PT REPORTS PAIN STILL 7/10 AND C/O PAIN WHICH IS MORE THAN HER BASELINE, BUT FALLS ASLEEP. IV ABX STARTED AND IV FLUIDS INFUSING. PT DENIES ANY NEEDS AT THIS TIME, CALL LIGHT WITHIN REACH. ALLOWED PT TO GO BACK TO SLEEP TILL BREAKFAST, INFORMED SHE NEEDS TO BE UP IN CHAIR FOR BREAKFAST.
--- NOTE | 2024-09-05 08:18 | NUR ---
PT ASSISTED UP FROM BED TO BATHROOM, STEADY ON FEET WITH FWW. UP IN CHAIR FOR BREAKFAST THIS MORNING. TOLERATED MEDS, IV ABX INFUSING. ALL PT CARE NEEDS MET AT THIS TIME, CALL LIGHT WITHIN REACH. PT IS GOING TO BE CALLING HER SISTER WHO WILL BE OFF AT 1330 TODAY, TO SEE IF SHE CAN COME PICK HER UP IF DISCHARGED. PT STATES MOTHER KNOWS HOW TO MANAGE DRESSINGS AND DOES NOT NEED FURTHER EDUCATION. ALL PT CARE NEEDS MET AT THIS TIME.
--- NOTE | 2024-09-05 09:11 | NUR ---
PT SLEEPING AT THIS TIME, I&OS DOCUMENTED AND PT DID NOT AWAKEN. CALL LIGHT WITHIN REACH, APPEARS COMFORTABLE AT REST. WILL CONTINUE TO MONITOR
--- NOTE | 2024-09-05 09:41 | NUR ---
INTO SEE PATIENT. PATIENT SITTING UP IN BED OXYGEN ON. PATIENT SISTER TO PICK HER UP AT DISCHARGE. NO NEEDS FROM CM AT THIS TIME.
--- NOTE | 2024-09-05 10:43 | NUR ---
PATIENT UP TO BATHROOM TO VOID/BM. CRISTINA CARE DONE FOR PATIENT. PATIENT BACK TO BED, ONE PERCOCET GIVEN FOR 7 ABD WOUND PAIN.
--- NOTE | 2024-09-05 11:28 | NUR ---
PT RESTING IN BED HAVING A SNACK. IV ABX STILL INFUSING AT THIS TIME. PT REQUESTING HER ABDOMEN DRESSING CHANGED, WILL RETURN SHORTLY TO COMPLETE. ALL PT CARE NEEDS MET AT TIME.
--- NOTE | 2024-09-05 11:47 | NUR ---
DRESSING TO RUQ CHANGES. DAYKINS SOAKED GAUZE APPLIED, COVERED WITH SURGICAL SPONGE/ABD TO PREVENT LEAKING OF MOISUTRE ON GOWN. TAPED IN PLACE. THIN LAYER OF BACTROBAN APPLIED TO SURROUNDING TISSUES AROUND SITE TO PROTECT. PT TOLERATED PROCEDURE WELL, C/O STINGING WITH DRESSING CHANGE BUT OVERALL WAS LESS PAINFUL THAN YESTERDAY DRESSING CHANGE. CALL LIGHT WITHIN REACH. PROVIDD PATIENT WITH SOME DRESSING SUPPLIES ON DISCHARGE. THOSE ARE PACKAGED UP IN A TAKE HOME BAG. IV ABX COMPLETED, SALINE LOCKED IV AT THIS TIME. ALL PT CARE NEEDS MET, PATIENT AWAITING LUNCH SHE INDICATES SHE IS STARVING. BLOOD SUGAR IS 194, INSULIN WILL BE GIVEN PER SLIDINE SCALE - SEE MAR.
--- NOTE | 2024-09-05 12:39 | NUR ---
PT SITTING UP IN CHAIR HAVING LUNCH, INSULIN GIVEN PER SLIDING SCALE - SEE MAR. PT DENIES ANY NEEDS. IV SALINE LOCKED ABX COMPLETED. NO FURTHER NEEDS AT HTIS TIME, CALL LIGHT WITHIN REACH.
[2024-09-05] MEDS ORDERED: CEFDINIR300 MG PO (14:26)
[2024-09-05] MEDS ORDERED: ELIQUIS5 MG PO (14:27)
[2024-09-05] MEDS ORDERED: BACTRIM DS TAB1 EACH PO (14:27)
[2024-09-05] MEDS ORDERED: OXYCODONE-ACET1 EAC3 PO (14:28)
--- NOTE | 2024-09-05 14:51 | NUR ---
PT NOT AVAILABLE FOR VISIT. PROVIDED PRAYER.
--- NOTE | 2024-09-06 12:19 | OR ---
[facility] [address] [place], [place] [address] Signed DATE OF OPERATION: 09/03/2024 SURGEON: Jose Webber MD PREOPERATIVE DIAGNOSIS: Right abdominal abscess (4 x 8 x 2 cm) POSTOPERATIVE DIAGNOSIS: Right abdominal abscess (4 x 8 x 2 cm) PROCEDURES: 1. Sharp debridement of right abdominal wall abscess. 2. Deep wound cultures. ESTIMATED BLOOD LOSS: Minimal. INDICATIONS: Dylan is a 49-year-old obese female with a body mass index of 71. I had first met Dylan approximately 18 years ago for her open appendectomy. Of course, she has developed significant abdominal wall hernia in that incision. At one point, she went as high as 600 pounds. She is back down to about 341 pounds after gastric bypass surgery. She is hoping to have her hernia repaired at some point with one of the hernia surgeons at [facility] and [facility]. In the meantime, she has developed some DVT and pulmonary emboli. She was supposed to be on Eliquis twice a day. Unfortunately, she has a long history of intermittent and medical noncompliance. Therefore, she was placed on Lovenox shots twice a day. This is now the second abdominal abscess that she has developed. Apparently, she was here a few weeks ago to have another abscess drained by our other surgeon. I happened to be agronomy technician on this occasion. The hospitalist service asked me to come and assist in that regard. She clearly has an abscess in the right side of her abdomen. It is about 4 x 8 x 2 cm. Overlying skin was black and necrotic. I explained to Dylan we needed to take her to the operating room to do this under local anesthetic along with monitored anesthesia care with some IV sedation. That also helps knowing that Dylan has extreme anxiety along with her bipolar disorder. She also has a history of MRSA and she is diabetic. She has been on vancomycin and cefepime. I explained to her that we would be cutting all the black skin away and of course that will be left open. It will be packed and it will heal in secondarily. She has been through this before and she said she understands the surgery. There is risk to this surgery including, but not limited to bleeding, infection, scarring, change in contour of the skin as well as recurrent abscesses in the same or other locations. She Electronically Signed By: JOSE WEBBER MD 09/04/24 0741 PATIENT NAME: DYLAN ROMERO OPERATIVE REPORT DATE OF : 79 REPORT #: [id number] PHYSICIAN: JOSE WEBBER MD PCP: JONES DAVISON MD REPORT IS CONFIDENTIAL AND NOT TO BE RELEASED WITHOUT AUTHORIZATION [facility] [address] [place], [place] [address] Signed had expressed understanding, wished to proceed. PROCEDURE NOTE: Dylan was taken down to our operating room, placed on the operating room table in the supine position. She was put in reverse Trendelenburg position. She is already on vancomycin and cefepime. She is already on Lovenox. SCDs were utilized. She was prepped and draped in the usual sterile fashion. We used a 15 blade knife and cut the skin back sharply until all edges were healthy with some thickness and some bleeding. All the necrotic tissue underneath was debrided. We took deep wound cultures at the same time. There was quite a bit of healthy fat of course, underneath all the necrotic tissue. The entire wound was about 4 x 8 x 2 cm. We injected some additional local anesthetic in the base of the wound. We then used 4 inch Kerlix gauze roll soaked in full strength Dakin's solution and we packed the wound. We then put mupirocin ointment around the wound and covered this area with a dry ABD and some tape. Dylan had tolerated the procedure quite well. We transferred her back over to her hospital bed and took her into recovery room in stable condition. Jose Webber MD ALB/MODL /[id number] cc: MD Jose Ramirez MD Copies: JONES DAVISON DMD, ANDREW L MD ~ Electronically Signed By: JOSE WEBBER MD 09/04/24 0741 PATIENT NAME: DYLAN ROMERO OPERATIVE REPORT DATE OF : 79 REPORT #: [id number] PHYSICIAN: JOSE WEBBER MD PCP: JONES DAVISON MD REPORT IS CONFIDENTIAL AND NOT TO BE RELEASED WITHOUT AUTHORIZATION
== END 2024-09-05 15:30 | disposition home or self-care (01) | DRG 867 ==
LOC: ED 12:04 → MS 16:02
PROVIDERS: Colon & Rectal Surgery; Emergency Medicine; ADMIT Family Medicine; ATTEND Family Medicine
PROC: 0HB7XZZ Excision of Abdomen Skin, External Approach (ICD-10-PCS; principal; 2024-09-03 09:00)
DX: T80.29XA Infection following other infusion, transfusion and therapeutic injection, initial encounter (principal); A41.9 Sepsis, unspecified organism; J96.21 Acute and chronic respiratory failure with hypoxia; L02.211 Cutaneous abscess of abdominal wall; L03.311 Cellulitis of abdominal wall; N39.0 Urinary tract infection, site not specified; Z68.45 Body mass index [BMI] 70 or greater, adult; I96 Gangrene, not elsewhere classified; E11.9 Type 2 diabetes mellitus without complications; F39 Unspecified mood [affective] disorder; K43.9 Ventral hernia without obstruction or gangrene; R00.0 Tachycardia, unspecified; E66.9 Obesity, unspecified; F41.9 Anxiety disorder, unspecified; Z88.0 Allergy status to penicillin; Z88.6 Allergy status to analgesic agent; Z86.711 Personal history of pulmonary embolism; Z88.8 Allergy status to other drugs, medicaments and biological substances; Z98.84 Bariatric surgery status; Z86.14 Personal history of Methicillin resistant Staphylococcus aureus infection; Z79.84 Long term (current) use of oral hypoglycemic drugs; Z79.4 Long term (current) use of insulin; Z79.01 Long term (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; Z79.85 Long-term (current) use of injectable non-insulin antidiabetic drugs
CPT/HCPCS: 00400; 36415; 71045; 74177; 80053; 81001; 82553; 83605; 83735; 84100; 84703; 85025; 85060; 87088; 87205; 87502; 93005; 93010; 94762; 97110; 97112; 97161; 97165; 97530; A9270; J0131; J0692; J0878; J1171; J1650; J1815; J2003; J2250; J2270; J2704; J2765; J3010; J3370; J7030; J7060; J7121; Q9967; U0002

== ENCOUNTER 2024-10-24 15:37 | Emergency (ER) | payer OTHER ==
[~2024-10-24] VITALS: Ht 147.3 cm; Wt 157.0 kg
[2024-10-24 16:08] LABS: BASOPHILS 0.4 % (0-2); EOSINOPHILS 1.4 % (0-6); HEMATOCRIT 33.8 % (35.0-50.0); HEMOGLOBIN 10.3 g/dL (12.0-18.0); LYMPHOCYTES 11.9 % (24-44); MCH 25.9 (27-36); MCHC 30.6 g/dl (30-36); MCV 84.5 fl (81-99); MONOCYTES 5.6 % (0-12); NEUTROPHILS 80.7 % (39-80); PLATELET COUNT 358 K/uL (140-440); RBC 3.99 M/ul (4.3-5.7); RDW 20.5 (10.5-15.0)
[2024-10-24 16:38] LABS: ALBUMIN 2.9 g/dL (3.4-5.0); ALBUMIN/GLOBULIN RATIO 0.67 (1.1-2.4); ALKALINE PHOSPHATASE 184 U/L (46-116); ALT (SGPT) 19 U/L (14-59); ANION GAP 14.9 (7-21); AST (SGOT) 12 U/L (15-37); BILIRUBIN, TOTAL 0.6 mg/dL (0.2-1.0); CARBON DIOXIDE 25 mmol/L (21-32); CHLORIDE 102 mmol/L (98-107); CREATININE, SERUM 0.67 mg/dL (0.55-1.02); GLOMERULAR FILTRATION RATE,EST 108 mL/min (>60); MAGNESIUM 1.4 mg/dL (1.8-2.4); POTASSIUM 4.9 mmol/L (3.5-5.1); PROTEIN, TOTAL 7.2 g/dL (6.4-8.2); UREA NITROGEN 13 mg/dL (7-18)
[2024-10-24] MEDS ORDERED: HYDROmorphone HCL 1 MG/ML SYR IV ONE ×4 (17:15→22:30)
[2024-10-24 23:02] VITALS: BP 128/81
--- NOTE | 2024-10-25 12:15 | EKG ---
[facility] [address] [facility] [place], [place] [address] Signed Sinus tachycardia Rightward axis Low voltage QRS Cannot rule out Anteroseptal infarct (cited on or before 10-MAR-2024) Abnormal ECG When compared with ECG of 01-SEP-2024 12:36, No significant change was found Confirmed by Airam Kauffman DO ([id number]) on 10/25/2024 12:15:24 PM Electronically Signed By: AIRAM KAUFFMAN DO 10/25/24 1215 PATIENT NAME: DYLAN ROMERO Electrocardiogram DATE OF : 79 PHYSICIAN: AIRAM KAUFFMAN DO REPORT #: [id number] REPORT IS CONFIDENTIAL AND NOT TO BE RELEASED WITHOUT AUTHORIZATION
== END 2024-10-24 23:05 | disposition home or self-care (01) ==
LOC: ED 15:37
PROVIDERS: Emergency Medicine
DX: S86.912A Strain of unspecified muscle(s) and tendon(s) at lower leg level, left leg, initial encounter (principal); E11.9 Type 2 diabetes mellitus without complications; Z88.0 Allergy status to penicillin; Z88.1 Allergy status to other antibiotic agents; Z88.8 Allergy status to other drugs, medicaments and biological substances; Z79.01 Long term (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; Z79.899 Other long term (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; X58.XXXA Exposure to other specified factors, initial encounter
CPT/HCPCS: 36415; 71045; 71260; 80053; 83735; 83880; 84484; 85025; 85379; 93005; 93010; 93971; 99285-25; J1171; Q9967

== ENCOUNTER 2025-01-04 21:25 | Emergency (ER) | payer OTHER ==
[~2025-01-04] VITALS: Ht 147.3 cm; Wt 157.0 kg
[2025-01-04 21:42] LABS: BASOPHILS 0.8 % (0.1-1.2); EOSINOPHILS 2.6 % (0.7-5.8); HEMATOCRIT 33.4 % (34.1-44.9); HEMOGLOBIN 9.4 g/dL (11.2-15.7); LYMPHOCYTES 32.2 % (19.3-51.7); MCH 26.2 PG (25.6-32.2); MCHC 28.1 g/dL (32.2-35.5); MONOCYTES 7.8 % (4.7-12.5); NEUTROPHILS 55.5 % (34.0-71.1); PLATELET COUNT 347 K/uL (182-369); RBC 3.59 M/uL (3.93-5.22)
[2025-01-04] MEDS ORDERED: SODIUM CHLORIDE 0.9% 2,000 ML IV SCH (21:45)
[2025-01-04 22:02] LABS: ALBUMIN 2.5 g/dL (3.4-5.0); ALBUMIN/GLOBULIN RATIO 0.64 (1.1-2.4); ALCOHOL, MEDICAL <3 ng/dL (<3); ALKALINE PHOSPHATASE 125 U/L (46-116); ALT (SGPT) 24 U/L (14-59); ANION GAP 20.2 (7-21); AST (SGOT) 21 U/L (15-37); BILIRUBIN, TOTAL 0.2 mg/dL (0.2-1.0); BUN/CREATININE RATIO 21.97 (6.0-28.6); CALCIUM 8.6 mg/dL (8.5-10.1); CARBON DIOXIDE 19 mmol/L (21-32); CHLORIDE 102 mmol/L (98-107); CREATININE, SERUM 0.91 mg/dL (0.55-1.02); GLOMERULAR FILTRATION RATE,EST 78 mL/min (>60); POTASSIUM 5.2 mmol/L (3.5-5.1); PROTEIN, TOTAL 6.4 g/dL (6.4-8.2); UREA NITROGEN 20 mg/dL (7-18)
[2025-01-04 22:19] LABS: ABO A; ANTIBODY SCREEN NEGATIVE; RH POSITIVE
[2025-01-04] MEDS ORDERED: HYDROmorphone HCL 1 MG/ML SYR IV ONE (22:45)
[2025-01-04 23:27] LABS: BILIRUBIN, URINE NEGATIVE (negative); BLOOD/HGB, URINE MODERATE (Negative); KETONE, URINE NEGATIVE (Negative); LEUK ESTERASE, URINE SMALL (negative); NITRITE, URINE NEGATIVE (negative)
[2025-01-04 23:34] LABS: EPITHELIAL CELLS, URINE SQUAMOUS 4+ /lpf (0-1+)
[2025-01-04 23:35] LABS: BACTERIA, URINE 2+ /hpf (negative); CASTS, URINE NONE SEEN \\lpf; COLLECTION TYPE, URINE CLEAN CATCH; CRYSTALS, URINE NONE SEEN (0-1+); REFLEX CULTURE, URINE No (No)
[2025-01-04] MEDS ORDERED: ACETAMINOPHEN 500 MG TAB PO ONE (23:45)
[2025-01-04 23:46] LABS: AMPHETAMINES, URINE NEGATIVE (NEGATIVE); BARBITURATES, URINE NEGATIVE (NEGATIVE); BENZODIAZEPINE, URINE POSITIVE (NEGATIVE); BUPRENORPHINE, URINE NEGATIVE (NEGATIVE); CANNABINOID, URINE NEGATIVE (NEGATIVE); COCAINE, URINE NEGATIVE (NEGATIVE); ECSTASY, URINE POSITIVE (NEGATIVE); FENTANYL, URINE NEGATIVE (NEGATIVE); METHADONE, URINE NEGATIVE (NEGATIVE); OPIATES, URINE POSITIVE (NEGATIVE); OXYCODONE, URINE NEGATIVE (NEGATIVE); PHENCYCLIDINE, URINE NEGATIVE (NEGATIVE)
[2025-01-04] MEDS ORDERED: CLONAZEPAM0.25 MG PO (23:54)
[2025-01-05] MEDS ORDERED: CEPHALEXIN500 M1 PO (00:37)
[2025-01-05] MEDS ORDERED: HYDROCODONE BIT/ACETAMINOPHEN 5/325 MG 1 TAB HOME.PACK PO PRN (00:45)
[2025-01-05] MEDS ORDERED: CEPHALEXIN MONOHYDRATE 500 MG HOME.PACK PO ONE (00:45)
[2025-01-05 00:51] VITALS: BP 124/80
--- NOTE | 2025-01-07 10:10 | EKG ---
[facility] [address] [facility] [place] [address] Signed Normal sinus rhythm Rightward axis Low voltage QRS Cannot rule out Anteroseptal infarct (cited on or before 10-MAR-2024) Abnormal ECG When compared with ECG of 24-OCT-2024 15:50, No significant change was found Confirmed by Airam Kauffman DO ([id number]) on 01/07/2025 10:10:23 AM Electronically Signed By: AIRAM KAUFFMAN DO 01/07/25 1010 PATIENT NAME: DYLAN ROMERO Electrocardiogram DATE OF : 79 PHYSICIAN: AIRAM KAUFFMAN DO REPORT #: [id number] REPORT IS CONFIDENTIAL AND NOT TO BE RELEASED WITHOUT AUTHORIZATION
== END 2025-01-05 00:50 | disposition home or self-care (01) ==
LOC: ED 21:25
PROVIDERS: Emergency Medicine
DX: I95.1 Orthostatic hypotension (principal); E66.01 Morbid (severe) obesity due to excess calories; Z88.1 Allergy status to other antibiotic agents; Z88.0 Allergy status to penicillin; Z79.01 Long term (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; E11.9 Type 2 diabetes mellitus without complications
CPT/HCPCS: 36415; 70450; 71045; 72125; 73080; 73590; 73610; 73630; 80053; 80307; 81001; 85025; 86850; 86900; 86901; 93005; 93010; 96361; 96374; 99284-25; A9270; G0480; J1171; J7030

== ENCOUNTER 2025-03-19 18:39 | Emergency (ER) | payer OTHER ==
[~2025-03-19] VITALS: Ht 172.7 cm; Wt 168.0 kg
[~2025-03-19 18:39] MED LIST changes: +CLONAZEPAM0.25 MG PO
[2025-03-19] MEDS ORDERED: KETAMINE in NS 50 MG/5 ML SYR ONE (18:45)
[2025-03-19] MEDS ORDERED: VANCOMYCIN HCL 1 GM VIAL ONE (18:50)
[2025-03-19] MEDS ORDERED: PIPERACILLIN/TAZOBACTAM 4.5 GM VIAL ONE (18:50)
[2025-03-19 18:57] LABS: MCH 27.3 PG (25.6-32.2); MCHC 25.6 g/dL (32.2-35.5); MCV 106.3 fL (79.4-94.8); RBC 3.63 M/uL (3.93-5.22)
[2025-03-19] MEDS ORDERED: KETAMINE HCL IN NACL, ISO-OSM 100 ML IV ONE (18:57)
[2025-03-19] MEDS ORDERED: VANCOMYCIN HCL 1 GM in DEXTROSE 5% 250 ML IV ONE (19:00)
[2025-03-19] MEDS ORDERED: LIDOCAINE 2% VISCOUS 6 ML SYR TOP ONE (19:00)
[2025-03-19] MEDS ORDERED: PIPERACILLIN/TAZOBACTAM 4.5 GM in SODIUM CHLORIDE 0.9% 100 ML IV ONE (19:00)
[2025-03-19] MEDS ORDERED: LACTATED RINGER'S 1,000 ML IV ONE (19:00)
[2025-03-19] MEDS ORDERED: KETAMINE HCL IN NACL, ISO-OSM 100 ML IV SCH (19:00)
[2025-03-19 19:13] LABS: INR 2.53 (0.80-1.30); PROTIME 25.8 Sec (11.2-14.2)
[2025-03-19 19:19] LABS: BANDS, MANUAL DIFF 11; BASOPHILS, MANUAL DIFF 1; EOSINOPHILS, MANUAL DIFF 2; LYMPHOCYTES, MANUAL DIFF 18; MONOCYTES, MANUAL DIFF 9; NEUTROPHILS, MANUAL DIFF 59
[2025-03-19 19:29] LABS: ALCOHOL, MEDICAL <3 ng/dL (<3); ALT (SGPT) 68 U/L (14-59); AST (SGOT) 224 U/L (15-37); GLOMERULAR FILTRATION RATE,EST 20 mL/min (>60); PROTEIN, TOTAL 7.2 g/dL (6.4-8.2); UREA NITROGEN 38 mg/dL (7-18)
[2025-03-19 19:33] LABS: ABO A; ANTIBODY SCREEN NEGATIVE; RH POSITIVE
[2025-03-19] MEDS ORDERED: SODIUM CHLORIDE 0.9% 1,000 ML IV PRN ×2 (19:45→21:00)
[2025-03-19] MEDS ORDERED: INSULIN REGULAR IN 0.9 % NACL 100 ML IV SCH (20:00)
[2025-03-19 20:12] LABS: BLOOD/HGB, URINE LARGE (Negative); KETONE, URINE SMALL (Negative); LEUK ESTERASE, URINE MODERATE (negative); NITRITE, URINE POSITIVE (negative)
[2025-03-19 20:16] LABS: BASE EXCESS, BLOOD GAS -21.8 mmol/L (-2-2); HCO3, BLOOD GAS 7.5 mmol/L (22-26); O2 SATURATION, BLOOD GAS 96.1 % (95.0-100.0); OXYGEN RECEIVED, BLOOD GAS 100.0; PCO2, BLOOD GAS 28.6 mmHg (35-45); PH, BLOOD GAS 7.03 (7.35-7.45); PO2, BLOOD GAS 416.0 mmHg (80-100); TOTAL CO2, BLOOD GAS 8.4
[2025-03-19 20:21] LABS: BACTERIA, URINE 2+ /hpf (negative); CASTS, URINE GRANULAR 1+ \\lpf; CRYSTALS, URINE NONE SEEN (0-1+); EPITHELIAL CELLS, URINE SQUAMOUS 1+ /lpf (0-1+); REFLEX CULTURE, URINE Yes (No)
[2025-03-19 20:28] LABS: AMPHETAMINES, URINE NEGATIVE (NEGATIVE); BARBITURATES, URINE NEGATIVE (NEGATIVE); BENZODIAZEPINE, URINE POSITIVE (NEGATIVE); CANNABINOID, URINE NEGATIVE (NEGATIVE); COCAINE, URINE NEGATIVE (NEGATIVE); ECSTASY, URINE POSITIVE (NEGATIVE); FENTANYL, URINE NEGATIVE (NEGATIVE); METHADONE, URINE NEGATIVE (NEGATIVE); OPIATES, URINE NEGATIVE (NEGATIVE); OXYCODONE, URINE NEGATIVE (NEGATIVE); PHENCYCLIDINE, URINE NEGATIVE (NEGATIVE)
[2025-03-19] MEDS ORDERED: SODIUM BICARBONATE 50 MEQ/50 ML VIAL ONE (20:30)
[2025-03-19] MEDS ORDERED: SODIUM BICARBONATE 50 MEQ/50 ML SYR IV ONE (20:30)
[2025-03-19] MEDS ORDERED: ETOMIDATE 40 MG/20 ML VIAL IV ONE (21:00)
[2025-03-19] MEDS ORDERED: VASOPRESSIN 20 UNITS in DEXTROSE 5% 100 ML IV SCH (21:15)
[2025-03-19] MEDS ORDERED: FENTANYL CITRATE-0.9 % NACL/PF 100 ML IV SCH (21:15)
[2025-03-19] MEDS ORDERED: NOREPINEPHRINE BITARTRATE 250 ML IV SCH (21:15)
[2025-03-19] MEDS ORDERED: SUCCINYLCHOLINE CHLORIDE 20 MG/ML MDV IV ONE (21:15)
[2025-03-19] MEDS ORDERED: KETAMINE in NS 50 MG/5 ML SYR IV ONE (21:15)
[2025-03-19] MEDS ORDERED: VASOPRESSIN 20 UNITS/ML VIAL ONE (21:26)
[2025-03-19 21:52] LABS: LACTIC ACID, BLOOD 6.4 mmol/L (0.4-2.0)
[2025-03-19 23:30] VITALS: BP 114/50
--- NOTE | 2025-03-25 14:10 | OR ---
[facility] [address] [place], [place] [address] Signed DATE OF OPERATION: 03/19/2025 SURGEON: Morelia Estrada MD PREOPERATIVE DIAGNOSIS: Critical illness, status post intubation from ground level fall and loss of consciousness, need for central venous access. POSTOPERATIVE DIAGNOSIS: Critical illness, status post intubation from ground level fall and loss of consciousness, need for central venous access. PROCEDURES: 1. Ultrasound-guided right internal jugular venous access. 2. Placement of right triple-lumen Arrow central venous catheter. ANESTHESIA: No local anesthesia. DESCRIPTION OF PROCEDURE: The patient was in the supine position and despite somewhat amorphous position in the stretcher, her face was placed to the left and interrogation of the right anterior neck undertaken confirming a right internal jugular vein, which was patent and easily visible. Preparation of the area was then undertaken with a Betadine solution and draped sterilely per protocol. The covered venous probe once again used to localize the right internal jugular vein, given her very thick and amorphous neck. Under direct visualization on 1st pass, the right internal jugular vein was easily accessed showing dark nonpulsatile blood. A flexible J-wire was passed down the needle. Needle was removed. The site was incised with an 11 blade and dilated with enclosed blue dilator and a previously inspected and irrigated Arrow blue tip triple-lumen catheter placed over the wire. The wire was removed and aspiration on the distal port showed dark nonpulsatile blood. Specimens were obtained for various lab studies including cultures, etc. The catheter was secured to the skin with the enclosed silk suture and a sterile adherent dressing applied as well. She tolerated procedure well. Morelia Estrada MD Electronically Signed By: MORELIA ESTRADA MD 03/25/25 1410 PATIENT NAME: DYLAN ROMERO OPERATIVE REPORT DATE OF : 79 REPORT #: [id number] PHYSICIAN: MORELIA ESTRADA MD PCP: JONES DAVISON MD REPORT IS CONFIDENTIAL AND NOT TO BE RELEASED WITHOUT AUTHORIZATION [address] [place], [place] [address] Signed /[facility] /[id number] cc: MARIANGEL RUVALCABA MD Copies: ~ Electronically Signed By: MORELIA ESTRADA MD 03/25/25 1410 PATIENT NAME: DYLAN ROMERO OPERATIVE REPORT DATE OF : 79 REPORT #: [id number] PHYSICIAN: MORELIA ESTRADA MD PCP: JONES DAVISON MD REPORT IS CONFIDENTIAL AND NOT TO BE RELEASED WITHOUT AUTHORIZATION
--- NOTE | 2025-03-25 14:10 | CONS ---
[facility] [address] [place], [place] [address] Signed DATE OF SERVICE: 03/19/2025 EMERGENCY ROOM TRAUMA NOTE FOR FULL TRAUMA ACTIVATION PROBLEM: Ground-level fall with acute change of consciousness. HISTORY: This quite morbidly obese, 160-kg white woman is well known to this institution from various interventions in the past. She is anticoagulated with Eliquis. She was said to have a ground-level fall in her home. Transferred by EMS, was initiated, and the patient was said to be Juanito Coma Score 15 at initial evaluation, quickly declining to Austin Coma Scale 9. Expedient transfer to the emergency room was undertaken where she was only barely arousable with painful stimulus. An IV was not able to be obtained in the field. The patient was noted to be hypotensive with a systolic pressure of 84 and a pulse in the 1-teen area initially. A full trauma team activation was undertaken, and all members were present at the time of her presentation to the emergency room. She was transported to the regular stretcher with multiple team members and poorly responsive and pale in appearance. She did not have any overt signs of bleeding, though she did have some bruising on the right restoration area initially. Primary survey showed her to be poorly ventilating, and decision for intubation was made by Dr. Hassan, the emergency room physician. I did assist him with intubation which went without problem, and good carbon dioxide respirations were noted. Good ventilations were established as well. An IV was initially placed by the ICU nurse with ultrasound guidance in the right upper arm. Plans were made for central venous catheterization by me as well. The patient responded well to intubation with good ventilations and oxygenation noted. She remained somewhat hypotensive, and a Levophed drip was promptly initiated to support her pressure. PHYSICAL EXAMINATION: HEAD AND NECK: Examination of her head and neck shows no sign of overt trauma, only faint bruising over the right facial area. Pupils were evaluated, midline and reactive initially. She did respond to deep painful stimulus. She did not have decerebrate or decorticate posturing at presentation, though her arms and body habitus are so very obese that she had an amorphous appearance generally speaking. Electronically Signed By: MORELIA ESTRADA MD 03/25/25 1410 PATIENT NAME: DYLAN ROMERO CONSULTATION DATE OF : 79 REPORT #: [id number] PHYSICIAN: MORELIA ESTRADA MD PCP: JONES DAVISON MD REPORT IS CONFIDENTIAL AND NOT TO BE RELEASED WITHOUT AUTHORIZATION [facility] [address] [place], [place] [address] Signed LUNGS: Breath sounds were noted to be equal bilaterally. ABDOMEN: Quite markedly obese and not particularly revealing as to the source of problem. EXTREMITIES: Obese as well. LABORATORY DATA: Lab studies were obtained after central venous catheter was placed by me. INITIAL ASSESSMENT: The patient had ground-level fall with chronic anticoagulation with Eliquis and had prompt and rather precipitous decline in mental status. Her airway has been secured and hemodynamics are established. A central venous catheter was placed by me through the right internal jugular vein with ultrasound guidance and shows good function. Blood studies have been obtained to further characterize the source of her ground-level fall. A pyle scan from head, neck, chest, and abdomen is anticipated promptly. Morelia Estrada MD JM/MODL /[id number] cc: Dr. Mark Akbar Copies: ~ Electronically Signed By: MORELIA ESTRADA MD 03/25/25 1410 PATIENT NAME: DYLAN ROMERO CONSULTATION DATE OF : 79 REPORT #: [id number] PHYSICIAN: MORELIA ESTRADA MD PCP: JONES DAVISON MD REPORT IS CONFIDENTIAL AND NOT TO BE RELEASED WITHOUT AUTHORIZATION
== END 2025-03-19 23:30 | disposition short-term general hospital (02) ==
LOC: ED 18:39
PROVIDERS: Emergency Medicine
DX: A41.9 Sepsis, unspecified organism (principal); R65.21 Severe sepsis with septic shock; G93.40 Encephalopathy, unspecified; S00.03XA Contusion of scalp, initial encounter; N39.0 Urinary tract infection, site not specified; Z88.0 Allergy status to penicillin; Z79.01 Long term (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; Z79.2 Long term (current) use of antibiotics; W18.30XA Fall on same level, unspecified, initial encounter
CPT/HCPCS: 31500; 36415; 70450; 71045; 71260; 72125; 72127; 74177; 80053; 80307; 81001; 82010; 82550; 82803; 83605; 83690; 85025; 85610; 85730; 86850; 86900; 86901; 87040; 87077; 87088; 87186; 94002; 94799; 96361; 96365; 96367; 96375; 99291; 99292; G0390; G0480; J0330; J1815; J2543; J3010; J3373; J3490; J7030; J7060; Q9967